=== PATIENT | male | born 1955 | race American Indian/Alaskan Native ===

== ENCOUNTER 2016-03-30 06:14 | Inpatient (IN) | payer MEDICAID ==
[2016-03-30 07:04] LABS: Basophils % (Auto) 0.7 % (0.0-1.8); Eosinophils % (Auto) 4.5 % (0.0-4.3); Hematocrit 44.6 % (35.5-45.6); Hemoglobin 14.4 gm/dl (11.8-15.2); Mean Corpuscular HGB Conc 32 % (32-34); Mean Corpuscular Hemoglobin 29 pg (28-32); Mean Corpuscular Volume 89 fl (84-94); Red Blood Count 5.02 M/mm3 (3.65-5.03); Red Cell Distribution Width 14.1 % (13.2-15.2); White Blood Count 8.8 K/mm3 (4.5-11.0)
--- NOTE | 2016-03-30 07:23 | Emergency Department Report ---
HPI - General Chief Complaint: Dyspnea/Respdistress Time Seen by Provider: 03/30/16 07:09 - HPI HPI: Chief complaint: Chest pain and shortness of breath HPI: Patient is a 60-year-old male with a history of hypertension, coronary artery disease status post stent 2000 and a stent change in 2009 who states for the last several days been having chest pain off and on. He describes it as fluttering followed by tightness with shortness of breath. Patient states it never lasts more than several minutes. Patient states this morning he became much more short of breath and began having chest tightness. Patient was treated with aspirin and albuterol in route by EMS with improvement of his breathing and his chest pain. Patient is similar to when he had a heart attack but not as severe. No recent travel or surgery. No leg pain or swelling Mode of arrival: EMS Source: Patient old chart family member Began: Off and on for several days significantly worse this morning Duration: Intermittent see above Context: See above Quality: See above Severity: 5 out of 10, currently 0 Improved with: Nebulizer and aspirin Worsened with: Nothing Associated signs and symptoms: Productive cough with yellow-white sputum Male yes, age no, hypertension yes, diabetes no, obesity no, elevated cholesterol yes, smoker yes, cocaine use no, family history of coronary artery disease yes, ED Past Medical Hx - Past Medical History Hx Hypertension: Yes Hx Heart Attack/AMI: Yes (2010 stent in 2000 and again in 2009) Hx Congestive Heart Failure: No Hx Diabetes: No Hx Arthritis: Yes Hx Asthma: No Hx COPD: No Additional medical history: "sepsis" 09/2014 - Surgical History Hx Coronary Stent: Yes Additional Surgical History: Peptic Ulcer surgery. 2 Knee surgeries - Social History Smoking Status: Never Smoker Substance Use Type: Alcohol - Medications Home Medications: Home Medications Medication Instructions Recorded Confirmed Last Taken Type Lisinopril [Zestril TAB] 5 mg PO QDAY #30 tablet 10/20/14 03/29/16 Rx ED Review of Systems ROS: Stated complaint: HENRY/CHEST PAIN Other details as noted in HPI ROS Constitutional: No fever ENT: No uri symptoms Cardiovascular: chest pain Respiratory: See HPI GI: No nausea vomiting or diarrhea : No dysuria frequency or urgency, Skin: No rash Neuro: No focal weakness or numbness Psych: No depression Ian/lymph: No edema or leg pain Physical Exam - Physical Exam Vital Signs: Vital Signs 03/30/16 03/30/16 06:33 06:36 Temperature 98 F Pulse Rate 84 Respiratory 22 22 Rate Blood Pressure 142/85 [Left] O2 Sat by Pulse 98 Oximetry Physical Exam: GENERAL: The patient is well-developed well-nourished. HEENT: Normocephalic. Atraumatic. Extraocular motions are intact. Patient has moist mucous membranes. NECK: Supple. No meningitic signs are noted. There is no adenopathy noted. CHEST/LUNGS: Clear to auscultation. Diminished. There is no respiratory distress noted. HEART/CARDIOVASCULAR: Regular. There is no tachycardia. There is no gallop rub or murmur. ABDOMEN: Abdomen is soft, nontender. Patient has normal bowel sounds. There is no abdominal distention. SKIN: There is no rash. There is no edema. There is no diaphoresis. NEURO: The patient is awake, alert, and oriented. The patient is cooperative. The patient has no focal neurologic deficits. The patient has normal speech. MUSCULOSKELETAL: There is no tenderness or deformity. There is no limitation range of motion. There is no evidence of acute injury. ED Course Vital Signs 03/30/16 03/30/16 06:33 06:36 Temperature 98 F Pulse Rate 84 Respiratory 22 22 Rate Blood Pressure 142/85 [Left] O2 Sat by Pulse 98 Oximetry - Reevaluation(s) Reevaluation #1: 03/30/16 08:00 Patient developed acute worsening of his left shoulder pain and repeat EKG was performed. No change in EKG. Exam patient has left trapezius tenderness and increased by palpation radiating down his left arm. No C-spine tenderness. ED Medical Decision Making - Lab Data Result diagrams: 03/30/16 06:53 03/30/16 06:53 Laboratory Tests 03/30/16 06:53 Troponin T < 0.010 - EKG Data -: EKG Interpreted by Me EKG shows normal: sinus rhythm Rate: normal (82) - EKG Data When compared to previous EKG there are: no significant change Interpretation: nonspecific ST-T wave chiara - Radiology Data interpreted by me: Chest x-ray shows no acute process. Critical care attestation.: If time is entered above; I have spent that time in minutes in the direct care of this critically ill patient, excluding procedure time. ED Disposition Clinical Impression: Chest pain Qualifiers: Chest pain type: unspecified Qualified Code(s): R07.9 - Chest pain, unspecified Disposition: OP ADMITTED IP TO THIS HOSP Is pt being admited?: Yes Does the pt Need Aspirin: No (given an ambulance) Condition: Stable Instructions: Chest Pain (ED) Time of Disposition: 08:10 (admit to the hospitalist)
[2016-03-30 07:26] LABS: BUN/Creatinine Ratio 11.25; Blood Urea Nitrogen 9 mg/dL (9-20); Carbon Dioxide 23 mmol/L (22-30); Chloride 105.4 mmol/L (98-107); Glucose 106 mg/dL (75-100); Sodium 143 mmol/L (137-145)
[2016-03-30 07:29] LABS: Platelet Count 165 K/mm3 (140-440)
[2016-03-30 07:36] LABS: Anion Gap 19 mmol/L
[2016-03-30] MEDS ORDERED: NITRO-BID 2% TP ONE ×2 (08:04→08:06)
--- NOTE | 2016-03-30 08:33 | XRay Report ---
CHEST 2 VIEWS: INDICATION: Shortness of breath. COMPARISON: 10/19/2014 FINDINGS: PA and lateral chest radiographs demonstrate new diffuse bilateral interstitial densities, greatest at the right lung base as also minimal fluid or thickening along the fissures, likely congestive. Stable cardiomediastinal silhouette. Lungs slightly hyperinflated/possible COPD. No large pleural effusions or cephalization. EKG leads. Mild thoracic spine degenerative changes. CONCLUSION: Early cardiopulmonary fluid overload/developing interstitial edema, as detailed above. Please correlate. Thank you for the opportunity to participate in this patient's care.
[2016-03-30] MEDS ORDERED: SODIUM CHLORIDE FLUSH SYRINGE 10 ML IV PRN (09:44)
[2016-03-30 10:36] LABS: Creatine Kinase MB 4.5 ng/mL (0.0-4.0)
[2016-03-30] MEDS ORDERED: ZOFRAN IV ONE (10:36)
[2016-03-30] MEDS ORDERED: MORPHINE IV ONE (10:36)
[2016-03-30 10:37] LABS: Creatine Kinase 168 units/L (55-170)
[2016-03-30] MEDS: ZESTRIL PO SCH (10:52)
[2016-03-30] MEDS ORDERED: NACL 0.9% 500 ML 500 ML IV SCH ×2 (11:00→12:00)
[2016-03-30 11:10] LABS: INR 0.99 (0.87-1.13)
[2016-03-30] MEDS ORDERED: NACL 0.9% 500 ML 500 ML ONE (11:13)
[2016-03-30] MEDS ORDERED: NITROGLYCERIN SYRINGE 3 ML ONE (11:54)
--- NOTE | 2016-03-30 11:54 | Consultation ---
Addendum entered and electronically signed by KILO CASTILLO MD 12:42: Patient seen and examined Symptoms are concerning for unstable angina Cath today is showing a borderline long 50-60% in-stent restenosis of the mid LAD, otherwise no obstructive disease Patient will be undergoing a stress test tomorrow morning to further evaluate the physiologic significance of this borderline lesion prior to discharge. Continue asa, plavix, lipitor for the time being Original Note: History of Present Illness Consult date: 03/30/16 Consult reason: chest pain History of present illness: Patient is a 60yr old male with a cardiac history of VA and coronary artery disease. Patient also continues to smoke. He presents to the ED with complaints of chest pain. Patient reports chest pain has been intermittent over the last few days but now associated with shortness of breath on exertion. He also complains of left shoulder pain. He denies nausea vomiting and palpitations. No acute ischemic changes on his presenting ECG. Cardiac consultation requested for further evaluation. Medications and Allergies Allergies Allergy/AdvReac Type Severity Reaction Status Date / Time No Known Allergies Allergy Verified 11/05/14 02:25 Home Medications Medication Instructions Recorded Confirmed Last Taken Type Lisinopril [Zestril TAB] 5 mg PO QDAY #30 tablet 10/20/14 03/30/16 03/29/16 Rx Aspirin [Aspirin BABY CHEW TAB] 81 mg PO QDAY 03/30/16 03/30/16 Unknown History Naproxen Sodium [Aleve TAB] 220 mg PO PRN PRN 03/30/16 03/30/16 Unknown History Active Meds: Active Medications Aspirin (Ecotrin) 325 mg PO QDAY CAR Sodium Chloride (Nacl 0.9% 500 Ml) 500 mls @ 50 mls/hr IV DIRECT CAR Stop: 03/30/16 20:59 Last Admin: 03/30/16 11:30 Dose: 50 mls/hr Sodium Chloride (Nacl 0.9% 500 Ml) 500 mls @ 50 mls/hr IV DIRECT CAR Last Admin: 03/30/16 11:30 Dose: 50 mls/hr Lisinopril (Zestril) 5 mg PO QDAY [facility] Last Admin: 03/30/16 10:52 Dose: Not Given Sodium Chloride (Sodium Chloride Flush Syringe 10 Ml) 10 ml IV PRN PRN PRN Reason: LINE FLUSH Physical Examination Vital Signs Pulse Resp Pulse Ox 85 18 96 03/30/16 06:16 03/30/16 06:16 03/30/16 06:16 General appearance: no acute distress HEENT: Positive: PERRL Neck: Positive: trachea midline Cardiac: Positive: Reg Rate and Rhythm Lungs: Positive: Decreased Breath Sounds Results 03/30/16 06:53 03/30/16 06:53 Cardiac Enzymes 03/30/16 Range/Units 10:03 CK-MB (CK-2) 4.5 H (0.0-4.0) ng/mL Coagulation 03/30/16 Range/Units 10:46 PT 13.0 (12.2-14.9) Sec. INR 0.99 (0.87-1.13) EKG interpretations - Telemetry EKG Rhythm: Sinus Rhythm Assessment and Plan Chest pain Hx of CAD Hypertension Tobacco abuse
[2016-03-30] MEDS: CALAN ONE ×2 (12:06→12:14)
[2016-03-30] MEDS: SUBLIMAZE ONE ×2 (12:08→12:12)
[2016-03-30] MEDS: HEPARIN 10,000 UNITS/10 ML ONE ×2 (12:09→12:14)
[2016-03-30] MEDS: VERSED ONE ×2 (12:09→12:12)
[2016-03-30] MEDS: XYLOCAINE 2% INFILTRATI ONE ×2 (12:09→12:12)
[2016-03-30] MEDS: HEPARIN/NS 5000 UNIT/500ML(CATH LAB) 1,000 ML IR ONE ×2 (12:11→12:14)
--- NOTE | 2016-03-30 13:18 | History and Physical Report ---
History of Present Illness Date of examination: 03/30/16 Date of admission: 03/30/16 08:12 Chief complaint: chest pain History of present illness: Patient is a 60yr old male with past medical history of hypertension, previous NC with stents first in 2000 that changed in 2009. Unfortunately continues to smoke presents to the ER today with complaint of chest pain for 2 days radiating down the left shoulder and up the left side of the neck which initially was associated shortness of breath until this morning when he woke him up from sleep. Rates the 10 over 10 in intensity. With no aggravating or alleviating symptoms. Denies any nausea, vomiting, diarrhea, chills, diaphoresis or palpitation. Initial troponin in the ER was normal. ROS Constitutional: No fever, fatigue or weight loss. Skin: No rash. Eyes: No recent vision problems or eye pain. ENT: No congestion, ear pain, or sore throat. Endocrine: No thyroid problems. Cardiovascular: Chest pain with shortness of breath Respiratory: No cough, congestion, or wheezing. Gastrointestinal: No abdominal pain, nausea, vomiting, or diarrhea. Genitourinary: No dysuria. Musculoskeletal: No joint swelling. Neurologic: No seizures. Hematologic: No unusual bruising or bleeding. Psychiatric: No psychiatric problems, hallucinations or depression. All other systems reviewed and otherwise negative. Past History Past Medical History: CAD, hypertension Past Surgical History: Other (cardiac cath) Social history: lives with family, smoking, full code. denies: alcohol abuse, prescription drug abuse, IV drug use Family history: CAD Medications and Allergies Allergies Allergy/AdvReac Type Severity Reaction Status Date / Time No Known Allergies Allergy Verified 11/05/14 02:25 Home Medications Medication Instructions Recorded Confirmed Last Taken Type Lisinopril [Zestril TAB] 5 mg PO QDAY #30 tablet 10/20/14 03/30/16 03/29/16 Rx Aspirin [Aspirin BABY CHEW TAB] 81 mg PO QDAY 03/30/16 03/30/16 Unknown History Naproxen Sodium [Aleve TAB] 220 mg PO PRN PRN 03/30/16 03/30/16 Unknown History Active Meds: Active Medications Aspirin (Ecotrin) 325 mg PO QDAY CAR Atorvastatin Calcium (Lipitor) 40 mg PO QHS CAR Clopidogrel Bisulfate (Plavix) 75 mg PO QDAY CAR Sodium Chloride (Nacl 0.9% 500 Ml) 500 mls @ 50 mls/hr IV DIRECT CAR Stop: 03/30/16 20:59 Last Admin: 03/30/16 11:30 Dose: 50 mls/hr Sodium Chloride (Nacl 0.9% 500 Ml) 500 mls @ 50 mls/hr IV DIRECT CAR Last Admin: 03/30/16 11:30 Dose: 50 mls/hr Lisinopril (Zestril) 5 mg PO QDAY CAR Last Admin: 03/30/16 10:52 Dose: Not Given Sodium Chloride (Sodium Chloride Flush Syringe 10 Ml) 10 ml IV PRN PRN PRN Reason: LINE FLUSH Exam - Physical Exam Narrative exam: VITAL SIGNS: Reviewed. GENERAL: The patient appeared well nourished and normally developed. Vital signs as documented. HEAD: No signs of head trauma. EYES: Pupils are equal. Extraocular motions intact. EARS: Hearing grossly intact. MOUTH: Oropharynx is normal. NECK: No adenopathy, no JVD. CHEST: Chest with clear breath sounds bilaterally. No wheezes, rales, or rhonchi. CARDIAC: Regular rate and rhythm. S1 and S2, without murmurs, gallops, or rubs. VASCULAR: No Edema. Peripheral pulses normal and equal in all extremities. ABDOMEN: Soft, without detectable tenderness. No sign of distention. No rebound or guarding, and no masses palpated. Bowel Sounds normal. MUSCULOSKELETAL: Good range of motion of all major joints. Extremities without clubbing, cyanosis or edema. NEUROLOGIC EXAM: Alert and oriented x 3. No focal sensory or strength deficits. Speech normal. Follows commands. PSYCHIATRIC: Mood normal. SKIN: No rash or lesions. - Constitutional Vitals: Temp Pulse Resp BP Pulse Ox 97.9 F 91 H 17 139/95 92 03/30/16 12:47 03/30/16 13:00 03/30/16 13:00 03/30/16 13:00 03/30/16 13:00 Results - Labs CBC & Chem 7: 03/30/16 06:53 03/30/16 06:53 Labs: Laboratory Last Values WBC 8.8 K/mm3 (4.5-11.0) 03/30/16 06:53 RBC 5.02 M/mm3 (3.65-5.03) 03/30/16 06:53 Hgb 14.4 gm/dl (11.8-15.2) 03/30/16 06:53 Hct 44.6 % (35.5-45.6) 03/30/16 06:53 MCV 89 fl (84-94) 03/30/16 06:53 MCH 29 pg (28-32) 03/30/16 06:53 MCHC 32 % (32-34) 03/30/16 06:53 RDW 14.1 % (13.2-15.2) 03/30/16 06:53 Plt Count 165 K/mm3 (140-440) 03/30/16 06:53 Lymph % (Auto) 42.7 % (13.4-35.0) H 03/30/16 06:53 [place] % (Auto) 8.7 % (0.0-7.3) H 03/30/16 06:53 Eos % (Auto) 4.5 % (0.0-4.3) H 03/30/16 06:53 Baso % (Auto) 0.7 % (0.0-1.8) 03/30/16 06:53 Lymph # 3.7 K/mm3 (1.2-5.4) 03/30/16 06:53 [place] # 0.8 K/mm3 (0.0-0.8) 03/30/16 06:53 Eos # 0.4 K/mm3 (0.0-0.4) 03/30/16 06:53 Baso # 0.1 K/mm3 (0.0-0.1) 03/30/16 06:53 Seg Neutrophils % 43.4 % (40.0-70.0) 03/30/16 06:53 Seg Neutrophils # 3.8 K/mm3 (1.8-7.7) 03/30/16 06:53 PT 13.0 Sec. (12.2-14.9) 03/30/16 10:46 INR 0.99 (0.87-1.13) 03/30/16 10:46 Sodium 143 mmol/L (137-145) 03/30/16 06:53 Potassium 4.0 mmol/L (3.6-5.0) 03/30/16 06:53 Chloride 105.4 mmol/L (98-107) 03/30/16 06:53 Carbon Dioxide 23 mmol/L (22-30) 03/30/16 06:53 Anion Gap 19 mmol/L 03/30/16 06:53 BUN 9 mg/dL (9-20) 03/30/16 06:53 Creatinine 0.8 mg/dL (0.8-1.5) 03/30/16 06:53 Estimated GFR > 60 ml/min 03/30/16 06:53 BUN/Creatinine Ratio 11.25 % 03/30/16 06:53 Glucose 106 mg/dL (75-100) H 03/30/16 06:53 Calcium 9.0 mg/dL (8.4-10.2) 03/30/16 06:53 Total Creatine Kinase 168 units/L (55-170) 03/30/16 10:03 CK-MB (CK-2) 4.5 ng/mL (0.0-4.0) H 03/30/16 10:03 CK-MB (CK-2) Rel Index 2.6 (0-4) 03/30/16 10:03 Troponin T < 0.010 ng/mL (0.00-0.029) 03/30/16 10:03 - Imaging and Cardiology EKG: image reviewed (normal sinus rhythm) Chest x-ray: image reviewed (personally reviewed no acute pathology) Assessment and Plan Assessment and plan: Patient is a 60yr old male with past medical history of hypertension, previous NC with stents first in 2000 that changed in 2009. Unfortunately continues to smoke presents to the ER today with complaint of chest pain for 2 days radiating down the left shoulder and up the left side of the neck which initially was associated shortness of breath until this morning when he woke him up from sleep. Rates the 10 over 10 in intensity. With no aggravating or alleviating symptoms. Denies any nausea, vomiting, diarrhea, chills, diaphoresis or palpitation. Initial troponin in the ER was normal. * Unstable angina * CAD * Tobacco abuse Plan * Admit patient to telemetry, have discussed with Dr. Edwards about patient's clinical condition and he will reevaluate the patient and see if cardiac catheterization is warranted at this point considering unstable angina. * Check troponins * Start patient on oxygen, pain control with morphine, aspirin, will hold on Plavix in case cardiac catheterization is needed. If not will start. * DVT and GI prophylaxis * Status of counseling provided to the patient the need to quit tobacco use patient verbalized understanding resources provided to the patient Advance Directives: Yes Plan of care discussed with patient/family: Yes
[2016-03-30] MEDS: PLAVIX PO SCH (13:34)
--- NOTE | 2016-03-30 13:42 | Cardiac Catherization Report ---
LEFT HEART CATHETERIZATION INDICATION FOR PROCEDURE: Unstable angina. PROCEDURES PERFORMED: Selective left and right coronary angiography and left ventriculography. DESCRIPTION OF PROCEDURE: After obtaining written consent, the patient was draped using sterile technique. A 2% lidocaine was injected into the right wrist. A 5-Austrian vascular sheath was inserted into the right radial artery. A 5-Austrian JL3.5 catheter was used to selectively engage the left coronary artery. A 5-Austrian JR4 catheter was used to selectively engage the right coronary artery. A 5-Austrian JR4 catheter was used to hand inject the left ventriculogram. No complications occurred during the procedure. Estimated blood loss was minimal. Specimen removed was none. Hemostasis was achieved at the end of the procedure using manual pressure. FINDINGS: HEMODYNAMICS: Aortic pressure is 132/95 with an LV systolic pressure of 139 mmHg and the left ventricular end-diastolic pressure of 36 mmHg. CARDIAC STRUCTURES: The left ventricle was poorly visualized. CORONARY ANATOMY: 1. This is a right dominant circulation. 2. The left main is angiographically normal. 3. The left anterior descending artery has evidence of a mid segment stent. There is a 50-60% tubular instent restenosis noted within the stent. There is a large first diagonal artery that is originating from the LAD and appears to have no evidence of obstructive disease. The left circumflex artery has mild diffuse nonobstructive luminal irregularities with less than 25% luminal stenosis. 4. The right coronary artery is a dominant vessel. No evidence of obstructive disease is noted within the right coronary artery. Impression: 1. There is evidence of borderline restenosis of the mid LAD segment. The luminal compromise is approximately 50-60%. Otherwise, there is no evidence of obstructive disease within the remaining coronary segments. 2. Evidence of elevated LVEDP measured at 36 mmHg. RECOMMENDATIONS: The patient will be recommended for further evaluation of the significance of the mid LAD lesion with a stress perfusion scan in the morning. If any evidence of ischemia, then the patient will be recommended for percutaneous coronary intervention. The patient will be admitted to telemetry for further monitoring. JOB# [id number] KARI/NATALIIA SERRATO
--- NOTE | 2016-03-30 14:17 | Admit Criteria Form ---
Admission Criteria Documentation: ANGINA Clinical Indications for Admission to Inpatient Care (Place 'X' for any and all applicable criteria): Admission is indicated for suspected angina (e.g, chest pain pattern, angina- equivalent symptom, or other finding suggesting unstable angina) with ANY ONE of the following(1)(2)(3)(4)(5): [ X]I. Angina needing acute intervention as indicated by ALL of the following (11)(12): [ X]a) Unstable angina is present as indicated by angina that is ANY ONE of the following: [ ]i) New onset [ ]ii) Nocturnal [ ]iii) Prolonged at rest [X ]iv) Progressive [ X]b) Angina warrants acute intervention as indicated by ANY ONE of the following: [ X]i) Recurrent angina (e.g, not responding as previously to treatment) [ ]ii) Angina at rest or with low-level activities despite initial medical therapy [ ]iii) New or presumably new ST-segment depression on ECG [ ]iv) Signs or symptoms of heart failure (eg, dyspnea, pulmonary edema) [ ]v) New or worsening mitral regurgitation [ ]vi) Hemodynamic instability [ ]vii) Dangerous arrhythmia (eg, sustained ventricular tachycardia) [ ]viii) History of percutaneous coronary intervention within 6 months [ ]ix) History of coronary artery bypass graft surgery [ ]x) VINNY risk score of 2 or greater[A] [ ]xi) History of Diabetes(14) [ ]xii) High-risk cardiac ischemia findings on noninvasive testing (e.g, echocardiogram, treadmill testing, nuclear scan) [ ]xiii) Chronic renal insufficiency (ie, estimated GFR less than 60 mL/min/1.732m) [ ]xiv) Left ventricular ejection fraction less than 40% [ ]II. Evidence of RI (e.g, cardiac biomarkers positive, ST-segment elevation on ECG). Also use Myocardial Infarction. Extended stay beyond goal length of stay may be needed for (1)(26): [ ]a) Intravascular procedural complications such as acute vessel closure, stent malposition, or vessel dissection(27) [ ]b) Extravascular procedural complications such as retroperitoneal hematoma, pericardial effusion, or cardiac tamponade [ ]c) Entry site complications causing bleeding, hematoma, or distal ischemia and requiring ongoing monitoring, surgical repair, or surgical thrombectomy(28) [ ]d) Heart failure [ ]e) Dangerous arrhythmia [ ]f) Hemodynamic instability with persisting symptoms after intensive medical management, or recurring severe prolonged symptoms [ ]g) Postprocedural myocardial infarction or acute renal failure The original [facility] [employer] content created by [facility] has been revised. The portions of the content which have been revised are identified through the use of italic text or in bold, and [facility] has neither reviewed nor approved the modified material. All other unmodified content is copyright [facility]. Please see references footnoted in the original [facility] edition 2016 Admission Criteria Met: Yes
--- NOTE | 2016-03-30 16:10 | Echocardiography Report ---
Transthoracic Echocardiogram Indication: Chest pain BP: 136/92 Conclusions *The study quality is technically difficult. *Global left ventricular systolic function is at the lower limits of normal. *The estimated ejection fraction is 45-50%. *The mid anteroseptal, apical septal, apical anterior, and apical inferior wall segments are hypokinetic. *The left atrium is moderately dilated. *There is mild to moderate mitral regurgitation. Findings Procedure Info: The study quality is technically difficult. Left Ventricle: The left ventricular chamber size is normal. Global left ventricular systolic function is at the lower limits of normal. The estimated ejection fraction is 45-50%. The mid anteroseptal, apical septal, apical anterior, and apical inferior wall segments are hypokinetic. Left Atrium: The left atrium is moderately dilated. Right Ventricle: The right ventricle is not well visualized. Right Atrium: The right atrium is not well visualized. Aortic Valve: The aortic valve is not well visualized. There is no evidence of aortic regurgitation. Mitral Valve: The mitral valve leaflets appear normal. There is mild to moderate mitral regurgitation. There is no evidence of mitral stenosis. Tricuspid Valve: The tricuspid valve leaflets are normal. There is no evidence of tricuspid valve regurgitation. There is no tricuspid stenosis. Pulmonic Valve: The pulmonic valve is not well visualized. Pericardium: There is no pericardial effusion. Aorta: There is no dilatation of the ascending aorta. There is no dilatation of the aortic arch. There is no dilatation of the descending thoracic aorta. There is no dilatation of the aortic root. Venous: The inferior vena cava appears normal in size. Measurements Chambers MM Name Value Normal Range Ao root diameter (MM) 3.6 cm (2 - 3.7) LA dimension (AP) MM 4.4 cm (1.9 - 4) LA:Ao ratio (MM) 1.22 ratio - AV cusp separation (MM) 2.4 cm (1.5 - 2.6) Chambers 2D Name Value Normal Range IVSd (2D) 1.62 cm (0.6 - 1.1) LVPWd (2D) 1.6 cm (0.6 - 1.1) IVS:LVPW ratio (2D) 1.01 ratio - LVIDd (2D) 5.39 cm (3.7 - 5.6) LVIDs (2D) 4.01 cm (2 - 3.8) LV FS (Teichholz) (2D) 25.6 % - LV FS (cube) (2D) 25.6 % - EF Teichholz (2D) 50.1 % - LA dimension (AP) 2D 4.5 cm (1.9 - 4) Volumes/Mass Name Value Normal Range LA ESV SP 4CH (MOD) 54 ml - LA ESV SP 2CH (MOD) 74 ml - LA ESV BP (MOD) 67 ml - LA ESV BP (MOD) index 27.6 ml/m2 - Diastolic/Systolic Function Name Value Normal Range MV E-wave Vmax 0.89 m/sec - MV deceleration time 190 msec - MV A-wave Vmax 0.71 m/sec - MV E:A ratio 1.2 ratio - LV septal e' Vmax 0.09 m/sec - LV lateral e' Vmax 0.1 m/sec - LV E:e' septal ratio 10.3 ratio - LV E:e' lateral ratio 8.5 ratio - Aortic Valve Name Value Normal Range AV VTI 15.1 cm - AV mean gradient 2 mmHg - LVOT diameter 2 cm - LVOT VTI 15 cm - LVOT mean gradient 2 mmHg - SV LVOT 47 ml - MALOU (continuity VTI) 3.12 cm2 - Mitral Valve Name Value Normal Range MV PHT 58 msec - MR Vmax 5.1 m/sec - MR VTI 161 cm - MVA (PHT) 3.79 cm2 - Wallmotion BAS Not Seen BA Not Seen BAL Not Seen JEFFERY Not Seen BI Not Seen BIS Not Seen MAS Hypokinetic MA Not Seen MAL Not Seen MIL Not Seen HI Not Seen MIS Not Seen Hypokinetic AA Hypokinetic AL Not Seen AI Hypokinetic APEX Hypokinetic
[2016-03-30 20:27] LABS: Creatine Kinase 125 units/L (55-170); Creatine Kinase MB 3.2 ng/mL (0.0-4.0)
[2016-03-31] MEDS ORDERED: LEXISCAN IV ONE (07:30)
[2016-03-31] MEDS ORDERED: MILK OF MAGNESIA PO PRN (08:56)
[2016-03-31 09:18] VITALS: BP 135/94
[2016-03-31] MEDS ORDERED: ECOTRIN PO SCH (10:00)
[2016-03-31] MEDS: ZESTRIL PO SCH (10:33)
[2016-03-31] MEDS: PLAVIX PO SCH (10:33)
--- NOTE | 2016-03-31 10:46 | Progress Note ---
Assessment and Plan Chest Pain Negative cardiac enzymes No ischemic ECG changes No ischemia by MPI - large fixed apical, anterior, anteroseptal, inferoseptal wall defect consistent with his previous history of AR (chronic finding) Cath this admission - borderline 50-60% ISR of the mid LAD (no ischemia in the LAD distribution) Echo showing LVEF 40-45% with RWMA in the LAD distribution CAD s/p AR and PCI to mid LAD Systemic Hypertension Hyperlipidemia Recommendations: Patient may go home on the following meds (Discussed with patient) asa 81 mg po daily plavix 75 mg po daily lipitor 40 mg po qhs amlodipine 5 mg po daily toprol XL 25 mg po daily ntg 0.4 mg SL prn for chest pain Follow-up [facility] in 2 weeks Subjective Date of service: 03/31/16 Principal diagnosis: Chest Pain Interval history: Patient denies chest pain or shortness of breath this morning Objective Vital Signs Temp Pulse Pulse Pulse Pulse Pulse Resp 03/31/16 10:33 86 03/31/16 08:54 86 03/31/16 08:53 87 03/31/16 08:52 90 03/31/16 08:51 99 H 03/31/16 08:50 93 H 03/31/16 08:32 78 03/31/16 06:06 98.3 F 77 20 03/31/16 01:24 83 03/31/16 00:56 98.3 F 81 20 03/30/16 21:34 97.7 F 81 18 03/30/16 20:00 76 18 03/30/16 19:00 83 20 03/30/16 18:00 85 17 03/30/16 17:54 76 77 77 03/30/16 17:00 76 16 03/30/16 16:00 82 14 03/30/16 15:30 80 17 03/30/16 15:00 82 16 03/30/16 14:30 78 14 03/30/16 14:00 85 17 03/30/16 13:30 74 14 03/30/16 13:15 77 18 03/30/16 13:00 91 H 17 03/30/16 12:47 97.9 F 94 H 18 03/30/16 11:25 03/30/16 11:20 97.0 F L 78 20 Resp BP BP BP BP BP Pulse Ox 03/31/16 10:33 135/94 03/31/16 08:54 135/94 03/31/16 08:53 141/90 03/31/16 08:52 155/76 03/31/16 08:51 156/94 03/31/16 08:50 151/94 03/31/16 08:32 125/91 03/31/16 06:06 121/81 95 03/31/16 01:24 03/31/16 00:56 107/69 94 03/30/16 21:34 118/74 93 03/30/16 20:00 123/83 96 03/30/16 19:00 135/75 96 03/30/16 18:00 135/88 97 03/30/16 17:54 118/76 112/81 120/82 03/30/16 17:00 119/74 96 03/30/16 16:00 124/83 97 03/30/16 15:30 112/81 96 03/30/16 15:00 118/76 96 03/30/16 14:30 126/92 95 03/30/16 14:00 134/88 91 03/30/16 13:30 129/91 91 03/30/16 13:15 132/98 92 03/30/16 13:00 139/95 92 03/30/16 12:47 131/93 93 03/30/16 11:25 18 03/30/16 11:20 132/90 97 - Physical Examination HEENT: Positive: PERRL Neck: Positive: trachea midline Cardiac: Positive: Reg Rate and Rhythm Lungs: Positive: Normal Exam - Labs and Meds Cardiac Enzymes 03/30/16 Range/Units 19:50 CK-MB (CK-2) 3.2 (0.0-4.0) ng/mL Coagulation 03/30/16 Range/Units 10:46 PT 13.0 (12.2-14.9) Sec. INR 0.99 (0.87-1.13) - Imaging and Cardiology EKG: image reviewed (normal sinus rhythm)
--- NOTE | 2016-03-31 12:20 | Discharge Summary ---
Providers - Providers Date of Admission: 03/30/16 08:12 Date of discharge: 03/31/16 Attending physician: WES SNLEL 03/30/16 Consult to Cardiac Rehabilitation [CONS] Routine Reason For Exam: Phase I 03/30/16 08:14 Consult to Physician [CONS] Urgent Consulting Provider: LYNN LAU Reason For Exam: chest pain Notified:: yes 03/30/16 12:43 Consult to Cardiac Rehabilitation [CONS] Routine Reason For Exam: Cardiac Rehab Evaluation Primary care physician: SUPERVISOR AD[employer]ICE Hospitalization Condition: Stable Hospital course: per Cardiology: "Chest Pain=>CAD Negative cardiac enzymes No ischemic ECG changes No ischemia by MPI - large fixed apical, anterior, anteroseptal, inferoseptal wall defect consistent with his previous history of IL (chronic finding) Cath this admission - borderline 50-60% ISR of the mid LAD (no ischemia in the LAD distribution) Echo showing LVEF 40-45% with RWMA in the LAD distribution CAD s/p IL and PCI to mid LAD Systemic Hypertension Hyperlipidemia Recommendations: Patient may go home on the following meds (Discussed with patient) asa 81 mg po daily plavix 75 mg po daily lipitor 40 mg po qhs amlodipine 5 mg po daily toprol XL 25 mg po daily ntg 0.4 mg SL prn for chest pain Follow-up [facility] in 2 weeks" time of discharge 32 minutes Disposition: DISCHARGED TO HOME OR SELFCARE Core Measure Documentation - Palliative Care Palliative Care/ Comfort Measures: Not Applicable - Core Measures Any of the following diagnoses?: none - VTE Discharge Requirements Deep Vein Thrombosis/Pulmonary Embolism Present on Admission: No Has pt received <5 days of overlap therapy or INR<2.0: No Anticoagulant overlap therapy prescribed at discharge: No Contraindication No Overlap Therapy order at DC: Not Indicated Exam - Physical Exam Narrative exam: GEN: WDWN, NAD, AWAKE, ALERT, ORIENTATED 3 HEENT: NCAT, PERRL, EOMI, OP CLEAR NECK: SUPPLE, NO THYROMEGALY, NO JVD, NO LAD CVS: RRR, NORMAL S1S2 LUNGS/CHEST: CTA B, NORMAL CHEST EXPANSION B, GOOD AIR ENTRY B ABD: SOFT NTND, GBS, NO REBOUND OR GUARDING EXT/SKIN: NO SIGNIFICANT EDEMA OR RASH MSK: FROM X 4 EXTREMITIES NEURO: CN 2-12 GROSSLY INTACT, NO FOCAL DEFICITS PSY: CALM - Constitutional Vitals: Temp Pulse Resp BP Pulse Ox 98.3 F 86 20 135/94 95 03/31/16 06:06 03/31/16 10:33 03/31/16 06:06 03/31/16 10:33 03/31/16 06:06 Plan Activity: advance as tolerated (no strenous activites until cleared by PCP and cardiology) Diet: low salt Follow up with: PRIMARY MD GAYE [Primary Care Provider] - 3-5 Days LYNN LAU MD [Staff Physician] - 14 Days Prescriptions: AtorvaSTATin [Lipitor] 40 mg PO QHS #25 tablet Aspirin [Aspirin BABY CHEW TAB] 81 mg PO QDAY #30 tab Metoprolol Xl [Metoprolol SUCCINATE ER TAB] 25 mg PO QDAY #30 tablet Nitroglycerin [Nitrostat] 0.4 mg SL Q5M PRN #30 tab PRN Reason: Chest Pain amLODIPine [Norvasc] 5 mg PO DAILY #30 tab Clopidogrel [Plavix] 75 mg PO QDAY #30 tablet Lisinopril [Zestril TAB] 5 mg PO QDAY #30 tablet
--- NOTE | 2016-04-01 07:04 | Treadmill Report ---
FINDINGS: There is evidence of a large fixed defect involving the apex, the apical and mid inferior wall, the septal wall as well as the apical and mid anteroseptal wall consistent with a previous myocardial infarction in the LAD distribution. There is no scintigraphic evidence of myocardial ischemia. Gated imaging is also consistent with a previous myocardial infarction in the LAD distribution with akinesis of the apex and hypokinesis of the septal wall. The left ventricular ejection fraction is measured at 45%. CONCLUSION: 1. No scintigraphic evidence of myocardial ischemia. 2. Large fixed defect in the LAD distribution comprising 26% of the left ventricular myocardium associated with akinesis consistent with a previous myocardial infarction in the LAD distribution. 3. Left ventricular ejection fraction is measured at 45%. [facility]# [id number] KARI/NATALIIA
== END 2016-03-31 13:21 | disposition home or self-care (01) | DRG 287 ==
LOC: ED 06:14 → 4A 08:12
PROVIDERS: ADMIT Internal Medicine; ATTEND Internal Medicine
PROC: 4A023N7 Measurement of Cardiac Sampling and Pressure, Left Heart, Percutaneous Approach (ICD-10-PCS; principal; 2016-03-30)
PROC: B2111ZZ Fluoroscopy of Multiple Coronary Arteries using Low Osmolar Contrast (ICD-10-PCS; 2016-03-30)
PROC: B2151ZZ Fluoroscopy of Left Heart using Low Osmolar Contrast (ICD-10-PCS; 2016-03-30)
DX: T82.855A Stenosis of coronary artery stent, initial encounter (principal); I10 Essential (primary) hypertension; M19.90 Unspecified osteoarthritis, unspecified site; I25.110 Atherosclerotic heart disease of native coronary artery with unstable angina pectoris; E78.5 Hyperlipidemia, unspecified; Y84.0 Cardiac catheterization as the cause of abnormal reaction of the patient, or of later complication, without mention of misadventure at the time of the procedure; Z95.5 Presence of coronary angioplasty implant and graft; I25.2 Old myocardial infarction; Z98.890 Other specified postprocedural states; Z79.899 Other long term (current) drug therapy; Z79.82 Long term (current) use of aspirin; Z82.49 Family history of ischemic heart disease and other diseases of the circulatory system; Y92.89 Other specified places as the place of occurrence of the external cause; Z72.0 Tobacco use
CPT/HCPCS: 36415; 71020; 78452; 80048; 82550; 82553; 82962; 84484; 85025; 85610; 93005; 93010; 93017; 93306; 93458; 96374; 96375; A9270-GY; A9502; C1894; J1644; J2250; J2270; J2405; J2785; J3010; J7040; Q9967

== ENCOUNTER 2016-04-06 21:19 | Emergency (ER) | payer MEDICAID ==
[2016-04-06 21:41] VITALS: BP 146/95
--- NOTE | 2016-04-07 14:10 | ED Elopement Review ---
ED Pt Elopement review - Call Back decision Pt Call Back Decision: No action required
== END 2016-04-06 21:59 | disposition left against medical advice (07) ==
LOC: ED 21:19
DX: R07.89 Other chest pain (principal); R10.32 Left lower quadrant pain; Z53.21 Procedure and treatment not carried out due to patient leaving prior to being seen by health care provider
CPT/HCPCS: 93005; 93010

== ENCOUNTER 2016-05-16 11:36 | Emergency (ER) | payer MEDICAID ==
[2016-05-16 12:03] VITALS: BP 144/97
[2016-05-16 12:40] LABS: Eosinophils % (Auto) 4.4 % (0.0-4.3)
[2016-05-16 12:48] LABS: Anion Gap 17 mmol/L; Blood Urea Nitrogen 8 mg/dL (9-20); Calcium 8.9 mg/dL (8.4-10.2); Carbon Dioxide 24 mmol/L (22-30); Chloride 105.7 mmol/L (98-107); Glucose 95 mg/dL (75-100); INR 0.97 (0.87-1.13); Sodium 143 mmol/L (137-145)
[2016-05-16 12:49] LABS: Partial Thromboplastin Time 30.1 Sec. (24.2-36.6)
[2016-05-16 12:58] LABS: Basophils % (Auto) 0.7 % (0.0-1.8); Hematocrit 43.6 % (35.5-45.6); Hemoglobin 14.1 gm/dl (11.8-15.2); Mean Corpuscular HGB Conc 32 % (32-34); Mean Corpuscular Hemoglobin 28 pg (28-32); Mean Corpuscular Volume 86 fl (84-94); Red Blood Count 5.09 M/mm3 (3.65-5.03); Red Cell Distribution Width 15.1 % (13.2-15.2); White Blood Count 8.5 K/mm3 (4.5-11.0)
[2016-05-16 13:30] LABS: Platelet Count 177 K/mm3 (140-440)
--- NOTE | 2016-05-16 14:16 | XRay Report ---
CHEST 2 VIEWS INDICATION: Shortness of breath. COMPARISON: 03/30/2016 FINDINGS: Frontal and lateral chest radiographs, 3 images, demonstrate overall less prominent lung markings/interstitial edema, though remain slightly more asymmetrically prominent on the right. Minimal fluid or thickening along the major fissures again noted, though has resolved along the right minor fissure. Normal cardiomediastinal silhouette. Stable bones. CONCLUSION: Resolving interstitial edema, as described. Please correlate. Thank you for the opportunity to participate in this patient's care.
--- NOTE | 2016-05-16 15:38 | Emergency Department Report ---
HPI - General Chief Complaint: Dyspnea/Respdistress Time Seen by Provider: 05/16/16 15:26 - HPI HPI: Room 3 The patient is a 60-year-old male presenting with a chief complaint of shortness of breath and cough. The patient states for 1 week is at a cough productive of yellowish green sputum. Patient states he developed shortness of breath yesterday and this morning at 11:00 he developed one hour of intermittent sharp chest pain. The patient states the pain is mostly whenever he coughs. Patient currently denies chest pain. Patient denies any history of fever Location: [see above] Duration: [see above] Quality: Sharp Severity: 0/10 Modifying factors: [see above] Context: [see above] Mode of transportation: [not driving] ED Past Medical Hx - Past Medical History Previous Medical History?: Yes Hx Hypertension: Yes Hx Heart Attack/AMI: Yes Hx Arthritis: Yes Additional medical history: "sepsis" 09/2014 - Surgical History Hx Coronary Stent: Yes (1 stent) Additional Surgical History: Peptic Ulcer surgery. 2 Knee surgeries - Family History Family history: no significant - Social History Smoking Status: Current Every Day Smoker (1/3 pack per day) Substance Use Type: Alcohol - Medications Home Medications: Home Medications Medication Instructions Recorded Confirmed Last Taken Type Aspirin [Aspirin BABY CHEW TAB] 81 mg PO QDAY #30 tab 03/31/16 Unknown Rx AtorvaSTATin [Lipitor] 40 mg PO QHS #25 tablet 03/31/16 Unknown Rx Clopidogrel [Plavix] 75 mg PO QDAY #30 tablet 03/31/16 Unknown Rx Lisinopril [Zestril TAB] 5 mg PO QDAY #30 tablet 03/31/16 Unknown Rx Metoprolol Xl [Metoprolol 25 mg PO QDAY #30 tablet 03/31/16 Unknown Rx SUCCINATE ER TAB] Nitroglycerin [Nitrostat] 0.4 mg SL Q5M PRN #30 tab 03/31/16 Unknown Rx amLODIPine [Norvasc] 5 mg PO DAILY #30 tab 03/31/16 Unknown Rx Azithromycin [Zithromax Z-FABIOLA] 0 mg PO DAILY #6 tab 05/16/16 Unknown Rx Benzonatate [Tessalon Perles] 100 mg PO Q8HR #30 capsule 05/16/16 Unknown Rx ED Review of Systems ROS: Stated complaint: SOB Other details as noted in HPI Comment: All other systems reviewed and negative Constitutional: denies: chills, fever Eyes: denies: eye pain, eye discharge, vision change ENT: denies: ear pain, throat pain Respiratory: cough, shortness of breath Cardiovascular: chest pain Endocrine: no symptoms reported Gastrointestinal: denies: abdominal pain, nausea, diarrhea Genitourinary: denies: urgency, dysuria Musculoskeletal: denies: back pain, joint swelling, arthralgia Skin: denies: rash, lesions Neurological: denies: headache, weakness, paresthesias Psychiatric: denies: anxiety, depression Hematological/Lymphatic: denies: easy bleeding, easy bruising Physical Exam - Physical Exam Vital Signs: Vital Signs 05/16/16 05/16/16 11:50 15:05 Temperature 97.5 F L Pulse Rate 87 Respiratory 20 18 Rate Blood Pressure 144/97 O2 Sat by Pulse 98 98 Oximetry Physical Exam: GENERAL: The patient is well-developed well-nourished male lying on stretcher not appearing to be in acute distress. [] HEENT: Normocephalic. Atraumatic. Extraocular motions are intact. Patient has moist mucous membranes. NECK: Supple. No meningitic signs are noted. There is no adenopathy noted. CHEST/LUNGS: Clear to auscultation. There is no respiratory distress noted. HEART/CARDIOVASCULAR: Regular. There is no tachycardia. There is no gallop rub or murmur. ABDOMEN: Abdomen is soft, nontender. Patient has normal bowel sounds. There is no abdominal distention. SKIN: There is no rash. There is no edema. There is no diaphoresis. NEURO: The patient is awake, alert, and oriented. The patient is cooperative. The patient has normal speech MUSCULOSKELETAL: There is no evidence of acute injury. ED Course Vital Signs 05/16/16 05/16/16 11:50 15:05 Temperature 97.5 F L Pulse Rate 87 Respiratory 20 18 Rate Blood Pressure 144/97 O2 Sat by Pulse 98 98 Oximetry - Consultations Consultation #1: 05/16/16 15:38 Cardiology paged 05/16/16 16:26 Case discussed with Jorge. States patient had cardiac catheterization performed last month but never followed up. Do not see need for admission to the hospital today. Will stop by and give patient appointment card for follow- up ED Medical Decision Making - Lab Data Result diagrams: 05/16/16 12:21 05/16/16 12:21 Laboratory Tests 05/16/16 05/16/16 05/16/16 12:21 12:21 12:21 WBC 8.5 RBC 5.09 H Hgb 14.1 Hct 43.6 MCV 86 MCH 28 MCHC 32 RDW 15.1 Plt Count 177 Lymph % (Auto) 37.9 H Faulkner % (Auto) 8.1 H Eos % (Auto) 4.4 H Baso % (Auto) 0.7 Lymph # 3.2 Faulkner # 0.7 Eos # 0.4 Baso # 0.0 Seg Neutrophils % 51.9 Seg Neutrophils # 4.6 PT 12.8 INR 0.97 APTT 30.1 D-Dimer 195.40 Sodium 143 Potassium 4.0 Chloride 105.7 Carbon Dioxide 24 Anion Gap 17 BUN 8 L Creatinine 0.8 Estimated GFR > 60 BUN/Creatinine Ratio 10.00 Glucose 95 Calcium 8.9 Troponin T < 0.010 - EKG Data -: EKG Interpreted by Me EKG shows normal: sinus rhythm Rate: normal - EKG Data When compared to previous EKG there are: no significant change Interpretation: other (no ischemic changes seen) - Radiology Data Radiology results: image reviewed (chest x-ray) interpreted by me: Chest x-ray-no focal infiltrates, no pneumothorax - Differential Diagnosis pneumonia, bronchitis, CHF, ACS Critical care attestation.: If time is entered above; I have spent that time in minutes in the direct care of this critically ill patient, excluding procedure time. ED Disposition Clinical Impression: Acute bronchitis Disposition: DISCHARGED TO HOME OR SELFCARE Is pt being admited?: No Does the pt Need Aspirin: No Condition: Stable Instructions: Acute Bronchitis (ED) Additional Instructions: Return to the emergency department immediately should you develop worsening symptoms, fever, inability to tolerate food or liquid or any other concerns. Prescriptions: Azithromycin [Zithromax Z-FABIOLA] 0 mg PO DAILY #6 tab Benzonatate [Tessalon Perles] 100 mg PO Q8HR #30 capsule Referrals: PRIMARY CARE, [Primary Care Provider] - 3-5 Days Time of Disposition: 16:28
== END 2016-05-16 16:53 | disposition home or self-care (01) ==
LOC: ED 11:36
DX: J20.9 Acute bronchitis, unspecified (principal); F17.200 Nicotine dependence, unspecified, uncomplicated; I10 Essential (primary) hypertension; I25.2 Old myocardial infarction; Z98.890 Other specified postprocedural states
CPT/HCPCS: 36415; 71020; 80048; 84484; 85025; 85379; 85610; 85730; 93005; 93010; 99284

== ENCOUNTER 2018-06-29 03:15 | Emergency (ER) | payer MEDICAID ==
[2018-06-29 03:25] VITALS: BP 125/97
--- NOTE | 2018-06-29 04:37 | XRay Report ---
PROCEDURE: XR KNEE 3V RT TECHNIQUE: 3 views right knee HISTORY: pain and swelling R knee s/p GLF COMPARISONS: None FINDINGS: Moderate right knee osteoarthrosis with mild periarticular soft tissue swelling. A suprapatellar join t effusion is present. Probable intra-articular osteochondral body measuring up to 16 mm in greatest dimension is present at the posterior aspect of the knee on lateral view. No acute fracture identifie d. IMPRESSION: Moderate right knee osteoarthrosis with joint effusion and probable intra-articular body. No acute fr acture identified. This document is electronically signed by Joe Pretty MD., June 29 2018 04:35:37 AM ET
[2018-06-29] MEDS ORDERED: IBUPROFEN PO ONE (07:43)
--- NOTE | 2018-06-29 07:59 | Emergency Department Report ---
ED Lower Extremity HPI - General Chief Complaint: Fall Stated Complaint: R KNEE PAIN Time Seen by Provider: 06/29/18 07:03 Source: patient Mode of arrival: Wheelchair Limitations: No Limitations - History of Present Illness Initial Comments: This is a 62-year-old male nontoxic, well nourished in appearance, no acute signs of distress presents to the ED with c/o of right knee pain 1 day. Patient stated that he had a mechanical fall after tripping and landed on his right knee. Patient denies any other trauma. Patient denies any numbness, tingling, fever, chills, nausea, vomiting, chest pain, shortness of breath, headache, stiff neck. Patient denies any joint swelling or joint redness. Patient denies decreased range of motion. Patient stated has decreased gait due to pain. Patient denies any allergies. MD Complaint: knee injury -: Last night Injury: Knee: Right Severity: mild Severity scale (0 -10): 8 Improves With: immobilization Worsens With: weight bearing, movement, palpation Context: fall Associated Symptoms: swelling, unable to bear weight. denies: snap/pop sensation, numbness, tingling, able to partially bear weight, ambulatory - Related Data Previous Rx's Medication Instructions Recorded Last Taken Type Aspirin [Aspirin BABY CHEW TAB] 81 mg PO QDAY #30 tab 03/31/16 Unknown Rx AtorvaSTATin [Lipitor] 40 mg PO QHS #25 tablet 03/31/16 Unknown Rx Clopidogrel [Plavix] 75 mg PO QDAY #30 tablet 03/31/16 Unknown Rx Lisinopril [Zestril TAB] 5 mg PO QDAY #30 tablet 03/31/16 Unknown Rx Metoprolol Xl [Metoprolol 25 mg PO QDAY #30 tablet 03/31/16 Unknown Rx SUCCINATE ER TAB] Nitroglycerin [Nitrostat] 0.4 mg SL Q5M PRN #30 tab 03/31/16 Unknown Rx amLODIPine [Norvasc] 5 mg PO DAILY #30 tab 03/31/16 Unknown Rx Azithromycin [Zithromax Z-FABIOLA] 0 mg PO DAILY #6 tab 05/16/16 Unknown Rx Benzonatate [Tessalon Perles] 100 mg PO Q8HR #30 capsule 05/16/16 Unknown Rx predniSONE [Deltasone] 20 mg PO QDAY #5 tab 03/17/18 Unknown Rx traMADol [Ultram] 50 mg PO Q6HR PRN #10 tablet 03/17/18 Unknown Rx Ibuprofen [Motrin] 600 mg PO Q8H PRN #20 tablet 06/29/18 Unknown Rx Tramadol HCl [Ultram] 50 mg PO Q6H PRN #12 tablet 06/29/18 Unknown Rx Allergies Allergy/AdvReac Type Severity Reaction Status Date / Time No Known Allergies Allergy Verified 03/17/18 09:18 ED Review of Systems ROS: Stated complaint: R KNEE PAIN Other details as noted in HPI Constitutional: denies: chills, fever Eyes: denies: eye pain, eye discharge, vision change ENT: denies: ear pain, throat pain Respiratory: denies: cough, shortness of breath, wheezing Cardiovascular: denies: chest pain, palpitations Endocrine: no symptoms reported Gastrointestinal: denies: abdominal pain, nausea, diarrhea Genitourinary: denies: urgency, dysuria Musculoskeletal: arthralgia. denies: back pain, joint swelling Skin: denies: rash, lesions Neurological: denies: headache, weakness, paresthesias Psychiatric: denies: anxiety, depression Hematological/Lymphatic: denies: easy bleeding, easy bruising ED Past Medical Hx - Past Medical History Previous Medical History?: Yes Hx Hypertension: Yes Hx Heart Attack/AMI: Yes Hx Congestive Heart Failure: No Hx Diabetes: No Hx Arthritis: Yes Hx Asthma: No Hx COPD: Yes Additional medical history: "sepsis" 09/2014 - Surgical History Past Surgical History?: Yes Hx Coronary Stent: Yes (1 stent) Additional Surgical History: Peptic Ulcer surgery. 2 Knee surgeries - Social History Smoking Status: Current Every Day Smoker Substance Use Type: Alcohol - Medications Home Medications: Home Medications Medication Instructions Recorded Confirmed Last Taken Type Aspirin [Aspirin BABY CHEW TAB] 81 mg PO QDAY #30 tab 03/31/16 Unknown Rx AtorvaSTATin [Lipitor] 40 mg PO QHS #25 tablet 03/31/16 Unknown Rx Clopidogrel [Plavix] 75 mg PO QDAY #30 tablet 03/31/16 Unknown Rx Lisinopril [Zestril TAB] 5 mg PO QDAY #30 tablet 03/31/16 Unknown Rx Metoprolol Xl [Metoprolol 25 mg PO QDAY #30 tablet 03/31/16 Unknown Rx SUCCINATE ER TAB] Nitroglycerin [Nitrostat] 0.4 mg SL Q5M PRN #30 tab 03/31/16 Unknown Rx amLODIPine [Norvasc] 5 mg PO DAILY #30 tab 03/31/16 Unknown Rx Azithromycin [Zithromax Z-FABIOLA] 0 mg PO DAILY #6 tab 05/16/16 Unknown Rx Benzonatate [Tessalon Perles] 100 mg PO Q8HR #30 capsule 05/16/16 Unknown Rx predniSONE [Deltasone] 20 mg PO QDAY #5 tab 03/17/18 Unknown Rx traMADol [Ultram] 50 mg PO Q6HR PRN #10 tablet 03/17/18 Unknown Rx Ibuprofen [Motrin] 600 mg PO Q8H PRN #20 tablet 06/29/18 Unknown Rx Tramadol HCl [Ultram] 50 mg PO Q6H PRN #12 tablet 06/29/18 Unknown Rx ED Physical Exam - General Limitations: No Limitations General appearance: alert, in no apparent distress - Head Head exam: Present: atraumatic, normocephalic - Eye Eye exam: Present: normal appearance - Neck Neck exam: Present: normal inspection, full ROM. Absent: tenderness, meningismus, lymphadenopathy - Rectal Rectal exam: Present: deferred - Extremities Exam Extremities exam: Present: full ROM, tenderness, normal capillary refill. Absent: calf tenderness - Expanded Lower Extremity Exam Right Hip exam: Present: normal inspection, full ROM. Absent: tenderness, swelling Upper Leg exam: Present: normal inspection, full ROM. Absent: tenderness, swelling Knee exam: Present: full ROM, tenderness, swelling, full knee extension. Absent: abrasion, laceration, ecchymosis, deformity, crepidus, dislocation, erythema, effusion, pain w/ pronation/supination, posterior draw sign, pain/laxity with valgus, pain/laxity with varus Lower Leg exam: Present: normal inspection, full ROM. Absent: tenderness, swelling, abrasion, laceration, ecchymosis, deformity, crepidus, dislocation, erythema, palpable cord, Cornelius's sign Ankle exam: Present: normal inspection, full ROM. Absent: tenderness, swelling Foot/Toe exam: Present: normal inspection, full ROM. Absent: tenderness, swelling Neuro vascular tendon exam: Present: no vascular compromise Gait: Positive: observed and limited by pain - Back Exam Back exam: Present: normal inspection, full ROM. Absent: tenderness, CVA ten derness (R), CVA tenderness (L), muscle spasm, paraspinal tenderness, vertebral tenderness, rash noted - Neurological Exam Neurological exam: Present: alert, oriented X3, normal gait - Psychiatric Psychiatric exam: Present: normal affect, normal mood - Skin Skin exam: Present: warm, dry, intact, normal color. Absent: rash ED Course Vital Signs 06/29/18 03:23 Temperature 97.9 F Pulse Rate 103 H Respiratory 18 Rate Blood Pressure 125/97 O2 Sat by Pulse 98 Oximetry - Reevaluation(s) Reevaluation #1: 06/29/18 07:58 Patient is speaking in full sentences with no signs of distress noted. ED Lower Extremity MDM - Medical Decision Making This is a 62-year-old male that presents with right knee strain. Patient is stable and was examined by me. I referred patient to an orthopedic doctor for further evaluation for possible MRI. X-ray has been obtained and dictated by the radiologist. Patient is notified of the x-ray report with noted by the patient. Patient does have normal gait with no tenderness and no joint swelling. No ecchymosis. no joint redness or swelling. Not warm to touch. No signs of cellulites present. Patient received a knee immobilize and a walker. Patient was instructed to RICE therapy. Patient received Motrin for pain. Patient is discharged with Motrin and Ultram. At time of discharge, the patient does not seem toxic or ill in appearance. No acute signs of distress noted. Patient agrees to discharge treatment plan of care. No further questions noted by the patient. Critical care attestation.: If time is entered above; I have spent that time in minutes in the direct care of this critically ill patient, excluding procedure time. ED Disposition Clinical Impression: Strain of right knee Qualifiers: Encounter type: initial encounter Qualified Code(s): S86.911A - Strain of unspecified muscle(s) and tendon(s) at lower leg level, right leg, initial encounter Disposition: TO HOME OR SELFCARE Is pt being admited?: No Does the pt Need Aspirin: No Condition: Stable Instructions: Knee Pain (ED), Knee Immobilizer (ED), RICE Therapy (ED), Tramadol (By mouth) Additional Instructions: Follow-up with a orthopedic doctor in 3-5 days or if symptoms worsen and continue return to emergency room as soon as possible. Do not operate any machinery while taking Ultram as this may cause drowsiness. Prescriptions: Ibuprofen [Motrin] 600 mg PO Q8H PRN #20 tablet PRN Reason: Pain Tramadol HCl [Ultram] 50 mg PO Q6H PRN #12 tablet PRN Reason: Pain , Severe (7-10) Referrals: PRIMARY CARE, [Referring] - 3-5 Days SYLVIA AYALA MD [Staff Physician] - 3-5 Days [facility] [Outside] - 3-5 Days Forms: Work/School Release Form(ED)
== END 2018-06-29 08:30 | disposition home or self-care (01) ==
LOC: ED 03:15
DX: S86.911A Strain of unspecified muscle(s) and tendon(s) at lower leg level, right leg, initial encounter (principal); I10 Essential (primary) hypertension; I25.2 Old myocardial infarction; M19.90 Unspecified osteoarthritis, unspecified site; F17.200 Nicotine dependence, unspecified, uncomplicated; Z95.1 Presence of aortocoronary bypass graft; Z79.82 Long term (current) use of aspirin; W01.0XXA Fall on same level from slipping, tripping and stumbling without subsequent striking against object, initial encounter; Y93.89 Activity, other specified; Y92.89 Other specified places as the place of occurrence of the external cause; Y99.8 Other external cause status
CPT/HCPCS: 99283

== ENCOUNTER 2018-09-16 11:51 | Inpatient (IN) | payer MEDICAID ==
--- NOTE | 2018-09-16 12:26 | Consultation ---
History of Present Illness Consult date: 09/16/18 History of present illness: 62 y/o man with h/o HTN, CAD, COPD who presents to the ED with left hand numbness/weakness since waking up. Last known normal at 0200. Emergent telestroke consult requested. CT head reviewed and case discussed with ED staff. Medications and Allergies Allergies Allergy/AdvReac Type Severity Reaction Status Date / Time No Known Allergies Allergy Verified 09/16/18 12:19 Home Medications Medication Instructions Recorded Confirmed Last Taken Type Aspirin [Aspirin BABY CHEW TAB] 81 mg PO QDAY #30 tab 03/31/16 Unknown Rx AtorvaSTATin [Lipitor] 40 mg PO QHS #25 tablet 03/31/16 Unknown Rx Clopidogrel [Plavix] 75 mg PO QDAY #30 tablet 03/31/16 Unknown Rx Lisinopril [Zestril TAB] 5 mg PO QDAY #30 tablet 03/31/16 Unknown Rx Metoprolol Xl [Metoprolol 25 mg PO QDAY #30 tablet 03/31/16 Unknown Rx SUCCINATE ER TAB] Nitroglycerin [Nitrostat] 0.4 mg SL Q5M PRN #30 tab 03/31/16 Unknown Rx amLODIPine [Norvasc] 5 mg PO DAILY #30 tab 03/31/16 Unknown Rx Azithromycin [Zithromax Z-FABIOLA] 0 mg PO DAILY #6 tab 05/16/16 Unknown Rx Benzonatate [Tessalon Perles] 100 mg PO Q8HR #30 capsule 05/16/16 Unknown Rx predniSONE [Deltasone] 20 mg PO QDAY #5 tab 03/17/18 Unknown Rx traMADol [Ultram] 50 mg PO Q6HR PRN #10 tablet 03/17/18 Unknown Rx Ibuprofen [Motrin] 600 mg PO Q8H PRN #20 tablet 06/29/18 Unknown Rx Tramadol HCl [Ultram] 50 mg PO Q6H PRN #12 tablet 06/29/18 Unknown Rx - Level of Consciousness 1a. Level of Consciousness: alert/keenly responsive - LOC Questions 1b. LOC Questions: answers both correctly - LOC Command 1c. LOC Commands: performs tasks correctly - Best Gaze 2. Best Gaze: normal - Visual 3. Visual: no visual loss - Facial Palsy 4. Facial Palsy: normal symmetrical movement - Motor Arm 5a. Motor Arm Left: no drift 5b. Motor Arm Right: no drift - Motor Leg 6a. Motor Leg Left: no drift 6b. Motor Leg Right: no drift - Limb Ataxia 7. Limb Ataxia: absent - Sensory 8. Sensory: mild/moderate sensory loss - Best Language 9. Best Language: no aphasia - Dysarthria 10. Dysarthria: normal - Extinction and Inattention 11. Extinction/Inattention: no abnormality (slower rapid alternating movement on left hand) - Scoring Total Score: 1 Stroke Severity: Minor Stroke Assessment and Plan [facility] Impression: Stroke Differential Diagnosis: 1. Cardioembolic stroke 2. Small vessel disease/lacune 3. Thromboembolic, [id number] mechanism 4. Hypercoagulable state-related infarct 5. Thrombotic mechanism, large artery disease 6. Transient ischemic attack Comments: Last known well: 0200 Door time:1151 [facility] contacted: 1218 [facility] at bedside: 1223 NIHSS assessment time (after CT):1227 Needle time:TPA not considered since he is out of the TPA window Thrombectomy not considered since large proximal intracranial vessel occlusion is not suspected. Also has minimal neurologic deficits Discussion: Our recommendations are outlined below. Recommendations: ASA, IV fluids and permissive hypertension (Keep BP < 220/110) Neurochecks DVT prophylaxis Follow up with Neurology for further testing/evaluation Medical Decision Making: - Extensive number of diagnosis or management options are considered above. - Extensive amount of complex data reviewed. - High risk of complication and/or morbidity or mortality are associated with differential diagnostic considerations above. - There may be uncertain outcome and increased probability of prolonged functional impairment or high probability of severe prolonged functional impairment associated with some of these differential diagnosis. Medical Data Reviewed: 1.Data reviewed include clinical labs, radiology, Medical Tests; 2.Tests results discussed w/performing or interpreting physician; 3.Obtaining/reviewing old medical records; 4.Obtaining case history from another source; 5.Independent review of image, tracing or specimen.
--- NOTE | 2018-09-16 12:36 | Cat Scan Report ---
CT HEAD WITHOUT CONTRAST: HISTORY: Stroke. TECHNIQUE: Sequential 2.5mm CT images. COMPARISON: none. FINDINGS: Cerebral Parenchyma: Within normal limits. Cerebellum: Within normal limits. Brainstem: Within normal limits. Ventricles: Normal. Sella: Normal. Extra-axial spaces: Normal. Basal Cisterns: Normal. Intracranial Hemorrhage: None. Midline Shift: None. Calvarium: Normal. Sinuses: There is moderate mucosal thickening throughout the ethmoid air cells. The remaining sinuses are well-aerated. Mastoid Air Cells: Normal. Visualized Orbits: Normal. IMPRESSION: Cranial CT scan within normal limits.
[2018-09-16 12:52] LABS: Basophils # (Auto) 0.1 K/mm3 (0.0-0.1); Basophils % (Auto) 1.2 % (0.0-1.8); Eosinophils # (Auto) 0.3 K/mm3 (0.0-0.4); Hematocrit 43.9 % (35.5-45.6); Hemoglobin 14.8 gm/dl (11.8-15.2); Lymphocytes # (Auto) 3.2 K/mm3 (1.2-5.4); Lymphocytes % (Auto) 37.6 % (13.4-35.0); Mean Corpuscular HGB Conc 34 % (32-34); Mean Corpuscular Volume 89 fl (84-94); Monocytes # (Auto) 0.6 K/mm3 (0.0-0.8); Monocytes % (Auto) 7.1 % (0.0-7.3); Platelet Count 241 K/mm3 (140-440); Red Blood Count 4.96 M/mm3 (3.65-5.03); Red Cell Distribution Width 15.9 % (13.2-15.2)
[2018-09-16 13:06] LABS: INR 1.04 (0.87-1.13); Partial Thromboplastin Time 26.4 Sec. (24.2-36.6)
[2018-09-16 13:07] LABS: BUN/Creatinine Ratio 6; Blood Urea Nitrogen 5 mg/dL (9-20); Calcium 9.8 mg/dL (8.4-10.2); Hemolysis Index 1
--- NOTE | 2018-09-16 13:39 | Emergency Department Report ---
ED Neuro Deficit HPI - General Chief Complaint: Neuro Symptoms/Deficit Stated Complaint: NUMBNESS IN HAND Time Seen by Provider: 09/16/18 12:17 Source: patient, EMS Mode of arrival: Wheelchair Limitations: Other - History of Present Illness Initial Comments: 62-year-old male, history of CAD with stents, HTN, COPD presents to ED with complaint of left arm weakness since waking and around 9:45 AM. Patient states he went to bed at 2 AM, and was normal at that time. 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 Denies slurred speech, denies left leg weakness or numbness. -: This morning Last Observed Normal: 02:00 Location: left arm Presenting Symptoms: Present: Weak/Paralyzed One Side History of same: No Place: home Severity: mild Quality: weak, tingling Improves With: none Worsens With: none Associated Symptoms: denies other symptoms. denies: chest pain, fever/chills, headaches, nausea/vomiting, shortness of breath - Related Data Home Medications: Home Medications Medication Instructions Recorded Confirmed Last Taken Albuterol Sulfate [Proventil Hfa] 1 - 2 puff IH Q6H PRN 09/16/18 09/16/18 Unknown HYDROcodone/APAP 5-325 [[place] 1 each PO Q12H 09/16/18 09/16/18 Unknown 5/325] Nabumetone (Nf) [Relafen (Nf)] 500 mg PO QDAY 09/16/18 09/16/18 Unknown Previous Rx's Medication Instructions Recorded Last Taken Type Aspirin [Aspirin BABY CHEW TAB] 81 mg PO QDAY #30 tab 03/31/16 Unknown Rx Allergies/Adverse Reactions: Allergies Allergy/AdvReac Type Severity Reaction Status Date / Time No Known Allergies Allergy Verified 09/16/18 12:19 ED Review of Systems ROS: Stated complaint: NUMBNESS IN HAND Other details as noted in HPI Comment: All other systems reviewed and negative Respiratory: denies: shortness of breath Cardiovascular: denies: chest pain Neurological: weakness, paresthesias. denies: headache ED Past Medical Hx - Past Medical History Hx Hypertension: Yes Hx Heart Attack/AMI: Yes Hx Congestive Heart Failure: No Hx Diabetes: No Hx Arthritis: Yes Hx Asthma: No Hx COPD: Yes Additional medical history: "sepsis" 09/2014 - Surgical History Past Surgical History?: Yes Hx Coronary Stent: Yes (1 stent) Additional Surgical History: Peptic Ulcer surgery. 2 Knee surgeries - Social History Smoking Status: Current Every Day Smoker Substance Use Type: Alcohol - Medications Home Medications: Home Medications Medication Instructions Recorded Confirmed Last Taken Type Aspirin [Aspirin BABY CHEW TAB] 81 mg PO QDAY #30 tab 03/31/16 09/16/18 Unknown Rx Albuterol Sulfate [Proventil Hfa] 1 - 2 puff IH Q6H PRN 09/16/18 09/16/18 Unknown History HYDROcodone/APAP 5-325 [[place] 1 each PO Q12H 09/16/18 09/16/18 Unknown History 5/325] Nabumetone (Nf) [Relafen (Nf)] 500 mg PO QDAY 09/16/18 09/16/18 Unknown History ED Neuro Physical Exam - General Limitations: Other General appearance: alert, in no apparent distress Suspected Stroke: Yes - Head Head exam: Present: atraumatic, normocephalic - Eye Eye exam: Present: normal appearance, PERRL, EOMI - ENT ENT exam: Present: mucous membranes moist - Neck Neck exam: Present: normal inspection - Respiratory Respiratory exam: Present: normal lung sounds bilaterally. Absent: respiratory distress - Cardiovascular Cardiovascular Exam: Present: regular rate, normal rhythm - GI/Abdominal GI/Abdominal exam: Present: soft. 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 Level of Consciousness: alert/keenly responsive 1b. LOC Questions: answers both correctly 1c. LOC Commands: performs tasks correctly 2. Best Gaze: normal 3. Visual: no visual loss 4. Facial Palsy: normal symmetrical movement 5b. Motor Arm Right: no drift 5a. Motor Arm Left: no drift 6a. Motor Leg Left: no drift 6b. Motor Leg Right: no drift 7. Limb Ataxia: absent 8. Sensory: mild/moderate sensory loss 9. Best Language: no aphasia 10. Dysarthria: normal 11. Extinction/Inattention: no abnormality Total Score: 1 Stroke Severity: Minor Stroke - Psychiatric Psychiatric exam: Present: normal affect, normal mood - Skin Skin exam: Present: warm, dry, intact, normal color ED Course Vital Signs 09/16/18 09/16/18 09/16/18 12:48 12:49 13:00 Temperature 98.2 F Pulse Rate 86 76 Respiratory 17 17 19 Rate Blood Pressure 139/88 Blood Pressure 133/93 [Left] O2 Sat by Pulse 96 97 96 Oximetry 09/16/18 09/16/18 09/16/18 14:00 15:39 16:00 Temperature Pulse Rate 81 86 87 Respiratory 13 21 18 Rate Blood Pressure 127/82 127/82 155/99 Blood Pressure [Left] O2 Sat by Pulse 97 97 96 Oximetry 09/16/18 16:20 Temperature Pulse Rate 87 Respiratory 22 Rate Blood Pressure 127/82 Blood Pressure [Left] O2 Sat by Pulse Oximetry - Lab Data Result diagrams: 09/16/18 12:42 09/16/18 12:42 Lab Results 09/16/18 09/16/18 09/16/18 Range/Units 12:37 12:42 12:42 WBC 8.5 (4.5-11.0) K/mm3 RBC 4.96 (3.65-5.03) M/mm3 Hgb 14.8 (11.8-15.2) gm/dl Hct 43.9 (35.5-45.6) % MCV 89 (84-94) fl MCH 30 (28-32) pg MCHC 34 (32-34) % RDW 15.9 H (13.2-15.2) % Plt Count 241 (140-440) K/mm3 Lymph % (Auto) 37.6 H (13.4-35.0) % [place] % (Auto) 7.1 (0.0-7.3) % Eos % (Auto) 3.0 (0.0-4.3) % Baso % (Auto) 1.2 (0.0-1.8) % Lymph # 3.2 (1.2-5.4) K/mm3 [place] # 0.6 (0.0-0.8) K/mm3 Eos # 0.3 (0.0-0.4) K/mm3 Baso # 0.1 (0.0-0.1) K/mm3 Seg Neutrophils % 51.1 (40.0-70.0) % Seg Neutrophils # 4.4 (1.8-7.7) K/mm3 PT 13.3 (12.2-14.9) Sec. INR 1.04 (0.87-1.13) APTT 26.4 (24.2-36.6) Sec. Thrombin Time (15.1-19.6) Sec. Sodium (137-145) mmol/L Potassium (3.6-5.0) mmol/L Chloride (98-107) mmol/L Carbon Dioxide (22-30) mmol/L Anion Gap mmol/L BUN (9-20) mg/dL Creatinine (0.8-1.5) mg/dL Estimated GFR ml/min BUN/Creatinine Ratio % Glucose (75-100) mg/dL POC Glucose 84 (70-105) Calcium (8.4-10.2) mg/dL Troponin T (0.00-0.029) ng/mL 09/16/18 09/16/18 Range/Units 12:42 12:42 WBC (4.5-11.0) K/mm3 RBC (3.65-5.03) M/mm3 Hgb (11.8-15.2) gm/dl Hct (35.5-45.6) % MCV (84-94) fl MCH (28-32) pg MCHC (32-34) % RDW (13.2-15.2) % Plt Count (140-440) K/mm3 Lymph % (Auto) (13.4-35.0) % [place] % (Auto) (0.0-7.3) % Eos % (Auto) (0.0-4.3) % Baso % (Auto) (0.0-1.8) % Lymph # (1.2-5.4) K/mm3 [place] # (0.0-0.8) K/mm3 Eos # (0.0-0.4) K/mm3 Baso # (0.0-0.1) K/mm3 Seg Neutrophils % (40.0-70.0) % Seg Neutrophils # (1.8-7.7) K/mm3 PT (12.2-14.9) Sec. INR (0.87-1.13) APTT (24.2-36.6) Sec. Thrombin Time 16.5 (15.1-19.6) Sec. Sodium 146 H (137-145) mmol/L Potassium 4.7 (3.6-5.0) mmol/L Chloride 106.2 (98-107) mmol/L Carbon Dioxide 29 (22-30) mmol/L Anion Gap 16 mmol/L BUN 5 L (9-20) mg/dL Creatinine 0.9 (0.8-1.5) mg/dL Estimated GFR > 60 ml/min BUN/Creatinine Ratio 6 % Glucose 97 (75-100) mg/dL POC Glucose (70-105) Calcium 9.8 (8.4-10.2) mg/dL Troponin T < 0.010 (0.00-0.029) ng/mL - Radiology Data Radiology results: report reviewed, image reviewed - Medical Decision Making - weakness, numbness to left arm - CT Head negative - not a tPA candidate since not within window - seen and evaluated by neurologist - admit to hospitalist - Differential Diagnosis CVA, cervical radiculopathy Critical care attestation.: If time is entered above; I have spent that time in minutes in the direct care of this critically ill patient, excluding procedure time. ED Disposition Clinical Impression: CVA (cerebral vascular accident) Qualifiers: Precerebral and cerebral artery: middle cerebral artery Laterality of affected vessel: right Disposition: DC-09 OP ADMIT IP TO THIS HOSP Is pt being admited?: Yes Condition: Stable Time of Disposition: 13:42
--- NOTE | 2018-09-16 13:51 | History and Physical Report ---
History of Present Illness Chief complaint: I feel weak on my left side History of present illness: 62 YO Male with HTN, CAD S/P Stent Placement on DAPT, Obesity, Nicotine Dependence, HLD, COPD presents to ED for evaluation. Pt states that he was in his usual state of health at bedtime which was around 0200hrs. Pt reports that upon waking from sleep at 0945 hrs he experienced Left arm weakness, and numbness. 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 EMS notified, and upon arrival the patient was found to have a neurologic deficit. A code stroke was called and the patient transported to [facility]. Pt seen and evaluated in ED and found to have symptoms consistent with CVA. Teleneurology consulted, but patient deemed not to be a candidate for TPA. Pt admitted to telemetry and initiated on CVA protocol. Neurology consulted in ED. Pt denies fever, chills, CP, Palpitations, NVD, Trauma, BRBPR, productive cough, skin rash, vertigo, seizures, loss of bowel/bladder continence. Past History Past Medical History: acute [place], arthritis, COPD, hypertension, hyperlipidemia Past Surgical History: total knee replacement, Other (Cardiac cath, ) Social history: , lives with family, smoking. denies: alcohol abuse Family history: hypertension Medications and Allergies Allergies Allergy/AdvReac Type Severity Reaction Status Date / Time No Known Allergies Allergy Verified 09/16/18 12:19 Home Medications Medication Instructions Recorded Confirmed Last Taken Type Aspirin [Aspirin BABY CHEW TAB] 81 mg PO QDAY #30 tab 03/31/16 Unknown Rx AtorvaSTATin [Lipitor] 40 mg PO QHS #25 tablet 03/31/16 Unknown Rx Clopidogrel [Plavix] 75 mg PO QDAY #30 tablet 03/31/16 Unknown Rx Lisinopril [Zestril TAB] 5 mg PO QDAY #30 tablet 03/31/16 Unknown Rx Metoprolol Xl [Metoprolol 25 mg PO QDAY #30 tablet 03/31/16 Unknown Rx SUCCINATE ER TAB] Nitroglycerin [Nitrostat] 0.4 mg SL Q5M PRN #30 tab 03/31/16 Unknown Rx amLODIPine [Norvasc] 5 mg PO DAILY #30 tab 03/31/16 Unknown Rx Azithromycin [Zithromax Z-FABIOLA] 0 mg PO DAILY #6 tab 05/16/16 Unknown Rx Benzonatate [Tessalon Perles] 100 mg PO Q8HR #30 capsule 05/16/16 Unknown Rx predniSONE [Deltasone] 20 mg PO QDAY #5 tab 03/17/18 Unknown Rx traMADol [Ultram] 50 mg PO Q6HR PRN #10 tablet 03/17/18 Unknown Rx Ibuprofen [Motrin] 600 mg PO Q8H PRN #20 tablet 06/29/18 Unknown Rx Tramadol HCl [Ultram] 50 mg PO Q6H PRN #12 tablet 06/29/18 Unknown Rx Review of Systems Constitutional: no weight loss, no weight gain, no fever, no chills Ears, nose, mouth and throat: no ear pain, no ear discharge, no tinnitis, no decreased hearing, no nose pain, no nasal congestion Cardiovascular: no chest pain, no orthopnea, no palpitations Respiratory: no cough, no cough with sputum, no excessive sputum, no hemoptysis, no shortness of breath Gastrointestinal: no nausea, no vomiting, no diarrhea, no constipation, no change in bowel habits Genitourinary Male: no hematuria, no flank pain, no discharge, no urinary frequency, no urinary hesitancy Rectal: no pain, no incontinence, no bleeding Musculoskeletal: no neck stiffness, no neck pain, no shooting arm pain, no arm numbness/tingling, no low back pain Integumentary: no rash, no pruritis, no sores, no wounds Neurological: weakness, numbness, ataxia, motor disturbance, sensory deficit, no transient paralysis, no vertigo, no headaches, no migraines, no change in speech, no change in mentation Psychiatric: no anxiety, no memory loss, no change in sleep habits, no sleep disturbances, no insomnia, no hypersomnia, no change in appetite Endocrine: no cold intolerance, no heat intolerance, no polyphagia, no excessive thirst, no polydipsia, no polyuria Hematologic/Lymphatic: no easy bruising, no easy bleeding Allergic/Immunologic: no urticaria, no allergic rhinitis, no wheezing Exam - Constitutional Vitals: Temp Pulse Resp BP Pulse Ox 98.2 F 86 17 133/93 97 09/16/18 12:48 09/16/18 12:48 09/16/18 12:49 09/16/18 12:48 09/16/18 12:49 General appearance: Present: mild distress, obese - EENT Eyes: Present: PERRL ENT: hearing intact, clear oral mucosa - Neck Neck: Present: supple, normal ROM - Respiratory Respiratory effort: normal Respiratory: bilateral: CTA - Cardiovascular Heart Sounds: Present: S1 & S2. Absent: rub, click - Extremities Extremities: pulses symmetrical, No edema Peripheral Pulses: within normal limits - Abdominal General gastrointestinal: Present: soft, non-tender, non-distended, normal bowel sounds Male genitourinary: Present: normal - Integumentary Integumentary: Present: clear, warm, dry - Musculoskeletal Musculoskeletal: left sided weakness - Psychiatric Psychiatric: appropriate mood/affect, intact judgment & insight - Neurologic Neurologic: CNII-XII intact, moves all extremities Results - Labs CBC & Chem 7: 09/16/18 12:42 09/16/18 12:42 Labs: Abnormal lab results 09/16/18 09/16/18 Range/Units 12:42 12:42 RDW 15.9 H (13.2-15.2) % Lymph % (Auto) 37.6 H (13.4-35.0) % Sodium 146 H (137-145) mmol/L BUN 5 L (9-20) mg/dL Assessment and Plan - Patient Problems (1) CVA (cerebral vascular accident) Current Visit: Yes Status: Acute Qualifiers: Precerebral and cerebral artery: middle cerebral artery Laterality of affected vessel: right Plan to address problem: Stroke Protocol: Admit to telemetry, CT head, MRI Brain, MRA Brain, Echo, Carotid doppler, Neurology consulted in ED, PT/OT/Speech Therapy, Lipid panel, Statin therapy, DAPT (2) HTN (hypertension) Current Visit: Yes Status: Acute Qualifiers: Hypertension type: essential hypertension Qualified Code(s): I10 - [place] l (primary) hypertension Plan to address problem: Permissive hypertension overnight, monitor BP q shift, systolic goal overnight is less that 170. Pt normotensive at admission. (3) Hypernatremia Current Visit: Yes Status: Acute Plan to address problem: encourage free water intake, repeat bmp in am. (4) CAD (coronary artery disease) Current Visit: No Status: Chronic Qualifiers: Coronary Disease-Associated Artery/Lesion type: [place] coronary artery Plan to address problem: lipid panel, low cholesterol diet, risk factor reduction, (5) Obesity hypoventilation syndrome Current Visit: Yes Status: Acute Plan to address problem: supplemental oxygen, nebulizer therapy, NIPPV as clinically indicated, pulse oximetry, pulmonary toilet, early ambulation. (6) DVT prophylaxis Current Visit: Yes Status: Acute Plan to address problem: SCD to BLE while in bed, prophylactic lovenox
[2018-09-16] MEDS ORDERED: PROVENTIL IH PRN (13:53)
[2018-09-16] MEDS ORDERED: TYLENOL PO PRN (13:53)
[2018-09-16] MEDS ORDERED: DULCOLAX PR PRN (13:53)
[2018-09-16] MEDS ORDERED: MILK OF MAGNESIA PO PRN (13:53)
[2018-09-16] MEDS ORDERED: REGLAN PO PRN (13:53)
[2018-09-16] MEDS ORDERED: SODIUM CHLORIDE FLUSH SYRINGE 10 ML IV PRN (13:53)
[2018-09-16] MEDS ORDERED: ZOFRAN IV PRN (13:53)
[2018-09-16] MEDS ORDERED: PHENERGAN PR PRN (13:53)
[2018-09-16] MEDS ORDERED: NITROSTAT SL PRN (13:55)
[2018-09-16] MEDS: TESSALON PERLES PO SCH ×2 (15:50→22:05)
--- NOTE | 2018-09-16 21:48 | Consultation ---
History of Present Illness Consult date: 09/16/18 Requesting physician: MATT MARTIN Chief complaint: weakness and numbness left hand, brief sharp head pain History of present illness: This 62-year-old right-handed -[place] male noted at 9:45 AM yesterday a sharp pain on the right side of his head without nausea or photophobia or phonophobia but with some blurring of vision. 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 Today he is better but the weakness and numbness are not gone. He states that when EMS came the niurkarpaige broke and he landed on his neck and head and has some residual neck pain and right-sided head pain from that injury. He has also had several different falls, the last one of which was 2 months ago when he was walking in the dark and didn't see a drop from a curb and fell and hurt his knee. Blood pressures at home when asked are 120-135/80. He takes hydrocodone for pain and Naprosyn 500 mg size when needed. He takes metoprolol for hypertension but no statin. He is listed as having been on a baby aspirin at home. 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 with 4 children, 6 or 7 grandchildren alive and well. Family history: Negative for strokes or aneurysms or epilepsy. Hypertension in his mother and 2 sisters. Diabetes in his mother and one sister. Review of systems: No headaches or dizziness, no snoring or pauses noted, not sleepy driving. No memory problems. Gen. appearance: Well-developed but obese early 60s -[place] male in no acute distress. HEENT: Atraumatic normocephalic bruits, superficial temporal artery pulses 2+ without soreness, oropharynx pink and moist. Neck: Supple, no bruits. Heart: No murmur heard but sounds are distant. Extremities: No clubbing cyanosis or edema, 2 dorsalis pedis pulses bilaterally. Neurologic exam: Mental status: Awake, alert oriented 3, speech is clear, names Pres. but gives Centre as DELIVERER MERCHANDISE after first name and first letter of last name as prompts. Gets 3 of 3 objects at 3 minutes. Serial sevens are intact, spells WORLD backwards correctly, abstracts and names well, no right-left confusion. Cranial nerves: [place] are full, no papilledema, spontaneous venous pulsations are present, PERRLA, EOMs are full without nystagmus or diplopia, facial sensation is intact, no facial weakness, Garcia is midline, palate rises sy mmetrically in the midline to phonation with positive gag bilaterally, shoulder shrug is 5 bilaterally, tongue protrudes in the midline. Cerebellar: Finger to nose and heel to mendez are intact. Sensory exam: Light touch is diminished in the left thumb, pinprick is diminished in the left arm and left hand especially dorsal first webspace, vibrations are decreased in the left hand, double simultaneous stimulation is intact bilaterally. Motor exam upper extremities: No drift or pronation; deltoid is 5, biceps 4- and triceps 4+ on the left and distally 3+-4- on the left in all groups but all 5 on the right. Brachioradialis muscle however is a bit soft bilaterally though equal in bulk. Left rapid alternating movements are slower. Motor examination lower extremities: No leg lag, iliopsoas, quadriceps, anterior tibials and gastrocnemius are 5 bilaterally. Rapid alternating movements are intact bilaterally. Reflexes: Palmomental, snout and jaw jerk are negative. Triceps, biceps and brachioradialis are 1 bilaterally. Knee jerks are trace bilaterally and ankle jerks are 0 bilaterally remaining 0 with reinforcement and without clonus. Toes are bilaterally downgoing to Babinski testing. Past History Past Medical History: acute [place], arthritis, COPD, hypertension, hyperlipidemia Past Surgical History: total knee replacement, Other (Cardiac cath, ) Social history: , lives with family, smoking. denies: alcohol abuse Family history: hypertension Medications and Allergies Allergies Allergy/AdvReac Type Severity Reaction Status Date / Time No Known Allergies Allergy Verified 09/16/18 12:19 Home Medications Medication Instructions Recorded Confirmed Last Taken Type Aspirin [Aspirin BABY CHEW TAB] 81 mg PO QDAY #30 tab 03/31/16 09/16/18 Unknown Rx Albuterol Sulfate [Proventil Hfa] 1 - 2 puff IH Q6H PRN 09/16/18 09/16/18 Unknown History HYDROcodone/APAP 5-325 [Birney 1 each PO Q12H 09/16/18 09/16/18 Unknown History 5/325] Nabumetone (Nf) [Relafen (Nf)] 500 mg PO QDAY 09/16/18 09/16/18 Unknown History Active Meds: Active Medications Acetaminophen (Tylenol) 650 mg PO Q4H PRN PRN Reason: Pain, Mild (1-3) Albuterol (Proventil) 2.5 mg IH Q3HRT PRN PRN Reason: Shortness Of Breath Aspirin (Baby Aspirin) 81 mg PO QDAY CAR Atorvastatin Calcium (Lipitor) 40 mg PO QHS [facility] Benzonatate (Tessalon Perles) 100 mg PO Q8HR [facility] Last Admin: 09/16/18 15:50 Dose: 100 mg Documented by: Bisacodyl (Dulcolax) 10 mg NH QDAY PRN PRN Reason: Constipation Clopidogrel Bisulfate (Plavix) 75 mg PO QDAY [facility] Enoxaparin Sodium (Lovenox) 40 mg SUB-Q QDAY@2200 [facility] Magnesium Hydroxide (Milk Of Magnesia) 30 ml PO Q4H PRN PRN Reason: Constipation Metoclopramide HCl (Reglan) 10 mg PO Q6H PRN PRN Reason: Nausea And Vomiting Nitroglycerin (Nitrostat) 0.4 mg SL Q5M PRN PRN Reason: Chest Pain Ondansetron HCl (Zofran) 4 mg IV Q8H PRN PRN Reason: Nausea And Vomiting Prednisone (Deltasone) 20 mg PO QDAY CAR Promethazine HCl (Phenergan) 25 mg NH Q6H PRN PRN Reason: Nausea And Vomiting Sodium Chloride (Sodium Chloride Flush Syringe 10 Ml) 10 ml IV PRN PRN PRN Reason: LINE FLUSH Tramadol HCl (Ultram) 50 mg PO Q6HR PRN PRN Reason: Pain Physical Examination - Vital Signs Vital Signs: Vital Signs Temp Pulse Resp BP Pulse Ox 98.2 F 86 17 133/93 96 09/16/18 12:48 09/16/18 12:48 09/16/18 12:48 09/16/18 12:48 09/16/18 12:48 Results - Laboratory Findings CBC and BMP: 09/16/18 12:42 09/16/18 12:42 Abnormal Lab Findings: Abnormal Labs 09/16/18 09/16/18 12:42 12:42 RDW 15.9 H Lymph % (Auto) 37.6 H Sodium 146 H BUN 5 L Assessment and Plan Impression: 1. Lacunar infarct 2. Hypertension Plan: 1. MRI brain pending 2. Statin to be added. 3. May need further testing depending on MRI results. 4. If symptoms persist despite negative MRI, could have some type of entrapment in the axilla or cervical disc disease and should first have cervical spine MRI which could be done as an outpatient. If that is negative may need left upper extremity MRI brachial plexus pathology. 5. Will check vitamin D 25-OH since low levels have been reported to be associated with falls. 55 minutes spent including detailed motor exam. Thank you for an interesting consultation on this pleasant early 60s male.
[2018-09-16] MEDS: LOVENOX SUB-Q SCH (22:05)
[2018-09-16] MEDS: ULTRAM PO PRN (22:10)
[2018-09-17] MEDS: TESSALON PERLES PO SCH ×3 (06:43→22:19)
[2018-09-17] MEDS: ULTRAM PO PRN ×3 (06:43→22:27)
[2018-09-17 07:34] LABS: Chol/HDL Ratio 3.86 %
--- NOTE | 2018-09-17 10:50 | Magnetic Resonance Report ---
MRI OF THE BRAIN WITHOUT CONTRAST: HISTORY: Stroke PROCEDURE: Multiplanar, multisequence MR imaging of the brain without IV contrast was performed. FINDINGS: Compared to the CT head dated 09/16/18. MRI demonstrates at least 3 small areas of diffusion restriction in the right cerebral hemisphere. A 1.3 cm focus of diffusion restriction is identified in the anterior right parietal lobe which appears to involve the postcentral gyrus. A 1.0 cm focus of diffusion restriction is identified in the posterior right frontal lobe. A 2.3 x 1.5 cm area of diffusion restriction is identified in the right posterior watershed region. There is no evidence for hemorrhage, mass, mass effect or extra-axial fluid collection. Minimal nonspecific chronic white matter changes are identified. No evidence for chronic infarct. The midline structures are central. The basal cisterns are patent. Normal ventricular size. Normal flow voids are identified in the [place] of [place] and posterior fossa. The orbital cavities and sella turcica demonstrate no abnormality. Minimal mucosal thickening is noted throughout all paranasal sinuses. The mastoid air cells are well-aerated. IMPRESSION: 3 relatively small areas of subacute ischemia are identified as described above. These appear to be within the right MCA distribution. No evidence for hemorrhage or mass effect. Minimal nonspecific chronic white matter changes.
--- NOTE | 2018-09-17 10:52 | Magnetic Resonance Report ---
MRA HEAD WITHOUT CONTRAST HISTORY: Stroke. [id number] imaging with MIP reformations of the [place] of [place] is submitted. The arteries appear widely patent and free of hemodynamically significant stenosis, aneurysm or dissection. A large right posterior communicating artery is identified. IMPRESSION: Unremarkable MRA head.
[2018-09-17] MEDS: DELTASONE PO SCH (11:16)
[2018-09-17] MEDS: BABY ASPIRIN PO SCH (11:16)
[2018-09-17] MEDS: PLAVIX PO SCH (11:16)
--- NOTE | 2018-09-17 14:49 | Progress Note ---
Assessment and Plan - Patient Problems (1) CVA (cerebral vascular accident) Current Visit: Yes Status: Acute Qualifiers: Precerebral and cerebral artery: middle cerebral artery Laterality of affected vessel: right Plan to address problem: Stroke Protocol: IMPRESSION: 3 relatively small areas of subacute ischemia are identified as described above. These appear to be within the right MCA distribution. No evidence for hemorrhage or mass effect. Minimal nonspecific chronic white matter changes. Able to walk Plavix 75 mg po qd initiated (2) HTN (hypertension) Current Visit: Yes Status: Acute Qualifiers: Hypertension type: essential hypertension Qualified Code(s): I10 - Essential (primary) hypertension Plan to address problem: Well controlled (3) Hypernatremia BMP pending (4) CAD (coronary artery disease) Current Visit: No Status: Chronic Qualifiers: Coronary Disease-Associated Artery/Lesion type: [place] coronary artery Plan to address problem: lipid panel, low cholesterol diet, risk factor reduction, (5) Obesity hypoventilation syndrome Current Visit: Yes Status: Acute Plan to address problem: supplemental oxygen, nebulizer therapy, NIPPV as clinically indicated, pulse oximetry, pulmonary toilet, early ambulation. (6) DVT prophylaxis Current Visit: Yes Status: Acute Plan to address problem: SCD to BLE while in bed, prophylactic lovenox Subjective Date of service: 09/17/18 Principal diagnosis: Acute CVA with L side weakness Interval history: 62 YO Male with HTN, CAD S/P Stent Placement on DAPT, Obesity, Nicotine Dependence, HLD, COPD presents to ED for Left arm weakness, and numbness since 945 am. 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 EMS notified, and upon arrival the patient was found to have a neurologic deficit. A code stroke was called and the patient transported to [facility]. Pt seen and evaluated in ED and found to have symptoms consistent with CVA. Teleneurology consulted, but patient deemed not to be a candidate for TPA. Pt admitted to telemetry and initiated on CVA protocol. Neurology consulted in ED. Pt denies fever, chills, CP, Palpitations, NVD, Trauma, BRBPR, productive cough, skin rash, vertigo, seizures, loss of bowel/bladder continence. Objective - Constitutional Vitals: Vital Signs - 12hr 09/17/18 09/17/18 09/17/18 04:06 06:43 07:43 Temperature 97.7 F Pulse Rate 73 Respiratory 18 18 18 Rate Blood Pressure 133/97 O2 Sat by Pulse 97 Oximetry 09/17/18 09/17/18 08:01 10:00 Temperature 98.2 F Pulse Rate 74 67 Respiratory 16 18 Rate Blood Pressure 150/90 O2 Sat by Pulse 96 Oximetry General appearance: Present: no acute distress, well-nourished - EENT Eyes: PERRL, EOM intact ENT: hearing intact, clear oral mucosa Ears: bilateral: normal - Neck Neck: supple, normal ROM - Respiratory Respiratory effort: normal Respiratory: bilateral: CTA - Breasts Breasts: normal - Cardiovascular Rhythm: regular Heart Sounds: Present: S1 & S2. Absent: gallop, rub Extremities: no ischemia, pulses intact, No edema, normal color, Full ROM - Gastrointestinal General gastrointestinal: Present: soft, non-tender, non-distended, normal bowel sounds - Genitourinary Male genitourinary: normal - Integumentary Integumentary: clear, warm, dry - Musculoskeletal Musculoskeletal: left sided weakness (4+/5 in both LUE and LLE) - Neurologic Neurologic: moves all extremities - Psychiatric Psychiatric: memory intact, appropriate mood/affect, intact judgment & insight - Allied health notes Allied health notes reviewed: nursing, case management - Labs CBC & Chem 7: 09/16/18 12:42 09/16/18 12:42 Labs: Abnormal lab results 09/17/18 Range/Units 05:52 Triglycerides 192 H (2-149) mg/dL HDL Cholesterol 29 L (40-59) mg/dL
--- NOTE | 2018-09-17 18:24 | Cat Scan Report ---
PROCEDURE: CT ANGIO NECK TECHNIQUE: CT angiogram neck without contrast HISTORY: embolic strokes right brain COMPARISONS: Correlated with prior MRA head MRI as well as noncontrast CT carotid ultrasound of September 16, 2018 FINDINGS: Origin of the great vessels is unremarkable. There is normal appearance of the common carotid arterie s bilaterally. Normal appearance of the internal carotid with no evidence for stenosis or occlusion. Both vertebral arteries are identified and are unremarkable. No evidence for stenosis occlusion or di ssection IMPRESSION: Normal CTA neck. This document is electronically signed by Tra Muhammad MD., September 17 2018 06:22:49 PM ET
--- NOTE | 2018-09-17 20:40 | Progress Note ---
Subjective Date of service: 09/17/18 Principal diagnosis: Acute CVA with L side weakness Interval history: HPI: He says his left hand is better. Did not examine him but showed him images of the embolic strokes from his MRI. I told him recovery is often more rapid when the strokes are small, as his are. I explained the reason for the echo with bubbles to look for an embolic source, the need for 30 day event monitoring as an outpatient to look for paroxysmal atrial fibrillation which could cause clots that the echo would miss once clot has gone upstream to cause strokes. I also explained the reasons for the CT angiogram and neck to look for any carotid disease that could have led to the strokes instead of a cardiac source. Signing off, call for any unexpected imaging findings and make sure he gets referred for 30 day event monitoring as outpatient. Objective - Vital Sign Vital Signs - 12hr 09/17/18 09/17/18 09/17/18 10:00 14:54 19:35 Temperature 97.9 F 98.2 F Pulse Rate 67 64 Respiratory 18 16 18 Rate Blood Pressure 162/91 141/98 O2 Sat by Pulse 98 Oximetry 09/17/18 20:00 Temperature Pulse Rate 78 Respiratory Rate Blood Pressure O2 Sat by Pulse 99 Oximetry - Laboratory Findings CBC and BMP: 09/16/18 12:42 09/16/18 12:42 Abnormal Lab Findings: Abnormal Labs 09/16/18 09/16/18 09/17/18 12:42 12:42 05:52 RDW 15.9 H Lymph % (Auto) 37.6 H Sodium 146 H BUN 5 L Triglycerides 192 H HDL Cholesterol 29 L
[2018-09-17] MEDS: LOVENOX SUB-Q SCH (22:19)
[2018-09-18] MEDS: TESSALON PERLES PO SCH ×2 (06:01→14:54)
[2018-09-18] MEDS: ULTRAM PO PRN (06:01)
[2018-09-18 07:13] LABS: BUN/Creatinine Ratio 8; Blood Urea Nitrogen 6 mg/dL (9-20); Calcium 8.8 mg/dL (8.4-10.2); Hemolysis Index 4
[2018-09-18] MEDS: DELTASONE PO SCH (10:30)
[2018-09-18] MEDS: BABY ASPIRIN PO SCH (10:30)
[2018-09-18] MEDS: PLAVIX PO SCH (10:30)
--- NOTE | 2018-09-18 14:56 | Vascular Lab Report ---
PROCEDURE: VL CAROTID DUPLEX BILAT TECHNIQUE: Carotid duplex Doppler ultrasound. Grayscale, color flow and spectral waveform images wer e obtained. HISTORY: stroke COMPARISON: None FINDINGS: There is a mild amount of plaque seen bilaterally. There is no abnormal elevation in flow velocity. I CA/CCA ratios are normal, 0.81 on the right and 0.90 on the left. Findings indicate no evidence of an y hemodynamically significant stenosis. Specifically findings indicate stenosis of less than 50%. Hipolito tebral artery flow is antegrade bilaterally. IMPRESSION: No evidence of any hemodynamically significant stenosis. This document is electronically signed by Olamide Bernal MD., September 18 2018 02:54:08 PM ET
--- NOTE | 2018-09-18 16:12 | Discharge Summary ---
Providers - Providers Date of Admission: 09/16/18 13:53 Date of discharge: 09/18/18 Attending physician: CHRISTIAN JOHNSON 09/16/18 Consult to Physician [CONS] Routine Comment: Consulting Provider: MICHAEL SANCHEZ Physician Instructions: Reason For Exam: cva 09/16/18 13:53 Occupational Therapy Evaluate and Treat [CONS] Routine Comment: Reason For Exam: Neuro deficits Physical Therapy Evaluation and Treat [CONS] Routine Comment: Reason For Exam: Neuro deficits Primary care physician: PADDY BOWEN Hospitalization Condition: Stable Pertinent studies: EcHo --20- 25 percent EF Dilated LV MRI/MRA IMPRESSION: 3 relatively small areas of subacute ischemia are identified as described above. These appear to be within the right MCA distribution. No evidence for hemorrhage or mass effect. Minimal nonspecific chronic white matter changes. Hospital course: (1) CVA (cerebral vascular accident) Current Visit: Yes Status: Acute Qualifiers: Precerebral and cerebral artery: middle cerebral artery Laterality of affected vessel: right Plan to address problem: Stroke Protocol: IMPRESSION: 3 relatively small areas of subacute ischemia are identified as described above. These appear to be within the right MCA distribution. No evidence for hemorrhage or mass effect. Minimal nonspecific chronic white matter changes. Echo with bubbles to look for an embolic source, the need for 30 day event monitoring as an outpatient to look for paroxysmal atrial fibrillation which could cause clots that the echo would miss once clot has gone upstream to cause strokes---w/u as outpatient Able to walk Plavix 75 mg po qd initiated (2) HTN (hypertension) Current Visit: Yes Status: Acute Qualifiers: Hypertension type: essential hypertension Qualified Code(s): I10 - Essential (primary) hypertension Plan to address problem: Well controlled (3) Hypernatremia BMP pending (4) CAD (coronary artery disease) Current Visit: No Status: Chronic Qualifiers: Coronary Disease-Associated Artery/Lesion type: [place] coronary artery Plan to address problem: lipid panel, low cholesterol diet, risk factor reduction, (5) Obesity hypoventilation syndrome Current Visit: Yes Status: Acute Plan to address problem: supplemental oxygen, nebulizer therapy, NIPPV as clinically indicated, pulse oximetry, pulmonary toilet, early ambulation (6)CHF . Diuretics -Lasix once a day Disposition: TO HOME OR SELFCARE Core Measure Documentation - Palliative Care Palliative Care/ Comfort Measures: Not Applicable - Core Measures Any of the following diagnoses?: stroke - Stroke Discharge Requirements Statin for LDL = or >70 mg/dl on DC: Yes Anticoag for atrial fib/atrial flutter: Not Applicable Antithrombotic for ischemic stroke: Yes Exam - Constitutional Vitals: Temp Pulse Resp BP Pulse Ox 97.9 F 63 22 143/91 98 09/18/18 11:21 09/18/18 11:21 09/18/18 11:21 09/18/18 11:21 09/18/18 11:21 General appearance: Present: no acute distress, well-nourished - EENT Eyes: Present: PERRL ENT: hearing intact, clear oral mucosa - Neck Neck: Present: supple, normal ROM - Respiratory Respiratory effort: normal Respiratory: bilateral: CTA - Cardiovascular Heart rate: 78 Rhythm: regular Heart Sounds: Present: S1 & S2. Absent: rub, click - Extremities Extremities: no ischemia, pulses intact, pulses symmetrical, No edema Peripheral Pulses: within normal limits - Abdominal General gastrointestinal: Present: soft, non-tender, non-distended, normal bowel sounds Male genitourinary: Present: normal - Integumentary Integumentary: Present: clear, warm, dry - Musculoskeletal Musculoskeletal: gait normal, strength equal bilaterally - Psychiatric Psychiatric: appropriate mood/affect, intact judgment & insight, cooperative - Neurologic Neurologic: CNII-XII intact, moves all extremities, gait normal (No focal deficits) Plan Activity: no restrictions Diet: low fat, low cholesterol, low salt Follow up with: PADDY BOWEN MD [Primary Care Provider] - 3-5 Days
[2018-09-18 18:19] VITALS: BP 140/87
[2018-09-19 11:27] LABS: Vitamin D, 25-OH, D2 <4 ng/mL
== END 2018-09-18 18:29 | disposition home or self-care (01) | DRG 65 ==
LOC: ED 11:51 → 4A 13:53 → 3A 09-18 11:07
PROVIDERS: ADMIT Internal Medicine; ATTEND Internal Medicine
DX: I63.511 Cerebral infarction due to unspecified occlusion or stenosis of right middle cerebral artery (principal); E87.0 Hyperosmolality and hypernatremia; E66.2 Morbid (severe) obesity with alveolar hypoventilation; I25.10 Atherosclerotic heart disease of native coronary artery without angina pectoris; E66.9 Obesity, unspecified; J44.9 Chronic obstructive pulmonary disease, unspecified; I25.2 Old myocardial infarction; M19.90 Unspecified osteoarthritis, unspecified site; F17.210 Nicotine dependence, cigarettes, uncomplicated; E78.5 Hyperlipidemia, unspecified; I50.9 Heart failure, unspecified; I11.0 Hypertensive heart disease with heart failure; Z95.5 Presence of coronary angioplasty implant and graft; Z79.82 Long term (current) use of aspirin; Z96.653 Presence of artificial knee joint, bilateral; Z68.31 Body mass index [BMI] 31.0-31.9, adult
CPT/HCPCS: 36415; 70450; 70498; 70544; 70551; 80048; 80061; 82306; 82962; 84484; 85025; 85610; 85670; 85730; 93005; 93010; 93306; 93880; 99406; G0378; A9270-GY; J1650; J7512; Q9967

== ENCOUNTER 2018-12-27 23:29 | Inpatient (IN) | payer MEDICAID, OTHER ==
[2018-12-27] MEDS ORDERED: ASPIRIN 325 MG TAB PO ONE (23:46)
[2018-12-28 00:43] LABS: Basophils # (Auto) 0.1 K/mm3 (0.0-0.1); Basophils % (Auto) 0.7 % (0.0-1.8); Eosinophils # (Auto) 0.4 K/mm3 (0.0-0.4); Eosinophils % (Auto) 4.6 % (0.0-4.3); Hematocrit 42.4 % (35.5-45.6); Hemoglobin 14.1 gm/dl (11.8-15.2); Lymphocytes # (Auto) 3.3 K/mm3 (1.2-5.4); Lymphocytes % (Auto) 35.6 % (13.4-35.0); Mean Corpuscular HGB Conc 33 % (32-34); Mean Corpuscular Volume 86 fl (84-94); Monocytes # (Auto) 0.8 K/mm3 (0.0-0.8); Monocytes % (Auto) 8.5 % (0.0-7.3); Platelet Count 240 K/mm3 (140-440); Red Blood Count 4.91 M/mm3 (3.65-5.03); Red Cell Distribution Width 15.4 % (13.2-15.2)
[2018-12-28 01:00] LABS: BUN/Creatinine Ratio 9; Blood Urea Nitrogen 6 mg/dL (9-20); Calcium 9.1 mg/dL (8.4-10.2); Hemolysis Index 4
[2018-12-28] MEDS ORDERED: POTASSIUM CHLORIDE ER 20 MEQ TAB PO ONE (01:03)
--- NOTE | 2018-12-28 01:25 | Emergency Department Report ---
ED Chest Pain HPI - General Chief Complaint: Chest Pain Stated Complaint: VEGAS/CP/NECK/BILATERAL SHOULDER PAIN Time Seen by Provider: 12/28/18 01:02 Source: patient Mode of arrival: Ambulatory Limitations: No Limitations - History of Present Illness Initial Comments: 63-year-old -I[place] male presents to the emergency department from home with 2 main complaints. First, the patient has a right-sided throbbing headache that has been going on since about 1 PM. He denies any vision change, slurred speech or any neurological deficits. He does have a history of previous CVA without any residual deficits. Secondly, the patient complains of some midsternal to left-sided chest pain that started at about the same time, around 1 PM in the afternoon. He also has a past nuchal history of COPD, hypertension, coronary artery disease with previous DC and one cardiac stent in place. He has not taken anything for any of his symptoms prior to arrival. He is a tobacco smoker and admits to some crack cocaine use a few days ago. The patient also ad mits to drinking a few beers this evening. No recent travel or sick contacts at home. His primary care physician is Dr. Josh Bose and he says his ham passer is a Dr. Montero. The patient was here in August for a stroke workup and had an echocardiogram that showed moderate to severely dilated left ventricle with an EF of 20-25%. He also had a stress test done in September 2016 that showed evidence of previous DC. - Related Data Previous Rx's Medication Instructions Recorded Last Taken Type Aspirin [Aspirin BABY CHEW TAB] 81 mg PO QDAY #100 tab.chew 09/18/18 Unknown Rx AtorvaSTATin [Lipitor] 40 mg PO QHS #30 tablet 09/18/18 Unknown Rx Clopidogrel [Plavix] 75 mg PO QDAY 30 Days #30 tablet 09/18/18 Unknown Rx Allergies Allergy/AdvReac Type Severity Reaction Status Date / Time No Known Allergies Allergy Verified 09/16/18 12:19 Heart Score - HEART Score History: Moderately suspicious EKG: Normal Age: 45-65 Risk factors: > 3 risk factors or hx of atherosclerotic disease Troponin: < normal limit HEART Score: 4 - Critical Actions Critical Actions: 4-6 pts:12-16.6% risk of adverse cardiac event. Should be admitted ED Review of Systems ROS: Stated complaint: VEGAS/CP/NECK/BILATERAL SHOULDER PAIN Other details as noted in HPI Comment: All other systems reviewed and negative Constitutional: denies: chills, fever Eyes: denies: eye pain, vision change ENT: denies: ear pain, throat pain Respiratory: denies: cough, shortness of breath Cardiovascular: chest pain. denies: edema Gastrointestinal: denies: abdominal pain, vomiting Genitourinary: denies: dysuria, discharge Musculoskeletal: denies: back pain, arthralgia Skin: denies: rash, lesions Neurological: headache. denies: weakness ED Past Medical Hx - Past Medical History Previous Medical History?: Yes Hx Hypertension: Yes Hx CVA: Yes Hx Heart Attack/AMI: Yes Hx Congestive Heart Failure: No Hx Diabetes: No Hx Arthritis: Yes Hx Asthma: No Hx COPD: Yes Additional medical history: "sepsis" 09/2014 - Surgical History Past Surgical History?: Yes Hx Coronary Stent: Yes (1 stent) Additional Surgical History: Peptic Ulcer surgery. 2 Knee surgeries - Social History Smoking Status: Current Every Day Smoker Substance Use Type: Alcohol, Cocaine - Medications Home Medications: Home Medications Medication Instructions Recorded Confirmed Last Taken Type Aspirin [Aspirin BABY CHEW TAB] 81 mg PO QDAY #100 tab.chew 09/18/18 12/28/18 Unknown Rx AtorvaSTATin [Lipitor] 40 mg PO QHS #30 tablet 09/18/18 12/28/18 Unknown Rx Clopidogrel [Plavix] 75 mg PO QDAY 30 Days #30 tablet 09/18/18 12/28/18 Unknown Rx ED Physical Exam - General Limitations: No Limitations - Other Other exam information: GENERAL: The patient is well-developed well-nourished. HENT: Normocephalic. Atraumatic. Patient has moist mucous membranes. EYES: Extraocular motions are intact. Pupils equal reactive to light bilaterally. NECK: Supple. Trachea is midline. CHEST/LUNGS: Clear to auscultation. There is no respiratory distress noted. HEART/CARDIOVASCULAR: Regular. There is no tachycardia. There is no murmur. ABDOMEN: Abdomen is soft, nontender. Patient has normal bowel sounds. There is no abdominal distention. SKIN: Skin is warm and dry. NEURO: Patient is sleepy but is easily arousable and then is oriented. The patient is cooperative. The patient has no focal neurologic deficits. Normal speech. Cranial nerves II through XII grossly intact. No pronator drift. No dysmetria. MUSCULOSKELETAL: There is no tenderness or deformity. There is no evidence of acute injury. ED Course Vital Signs 12/27/18 12/28/18 12/28/18 23:33 01:32 02:00 Temperature 97.7 F 98 F Pulse Rate 96 H 83 82 Respiratory 18 16 18 Rate Blood Pressure 141/89 143/91 Blood Pressure 141/92 [Left] O2 Sat by Pulse 95 97 88 Oximetry 12/28/18 03:00 Temperature Pulse Rate 83 Respiratory 20 Rate Blood Pressure 136/92 Blood Pressure [Left] O2 Sat by Pulse 93 Oximetry VINNY score - Vinny Score Age > 65: (0) No Aspirin use within the Past 7 Days: (1) Yes 3 or more CAD Risk Factors: (1) Yes 2 or more Angina events in past 24 hrs: (1) Yes Known CAD with more than 50% Stenosis: (1) Yes Elevated Cardiac Markers: (0) No ST Deviation Greater than 0.5mm: (0) No VINNY Score: 4 ED Medical Decision Making - Lab Data Result diagrams: 12/27/18 23:54 12/27/18 23:54 - EKG Data -: EKG Interpreted by Me EKG shows normal: sinus rhythm, axis, intervals, QRS complexes, ST-T waves Rate: normal - EKG Data When compared to previous EKG there are: no significant change Interpretation: unchanged when compared t (09/16/18) - Radiology Data Radiology results: report reviewed, image reviewed interpreted by me: Chest x-ray does not show any acute process. There are no pleural effusions, obvious pneumonia and there is no pneumothorax. CT BRAIN: 12/28/2018 INDICATION / CLINICAL INFORMATION: Headache. COMPARISON: 09/16/2018 FINDINGS: BRAIN/INTRACRANIAL STRUCTURES: Unenhanced CT images of the brain demonstrate no evidence of acute intracranial abnormality. Ventricles and sulci are normal in size and shape for a patient of this age. There is no evidence of hemorrhage or mass. There are no abnormal extra-axial fluid collections. Mild chronic appearing white matter hypoattenuation is present in the right parietal lobe, unchanged when compared to the prior exam. EXTRACRANIAL STRUCTURES: Unremarkable. IMPRESSION: No acute abnormality. No change when compared to 09/16/2018. CTA CHEST WITH IV CONTRAST INDICATION / CLINICAL INFORMATION: CP, elevated dimer. TECHNIQUE: Axial CT images were obtained through the chest after injection of 100 mL Omnipaque 350 IV contrast. 3 plane MIP and/or 3D reconstruc tions were produced. All CT scans at this location are performed using CT dose reduction for ALARA by means of automated exposure control. COMPARISON: None available. FINDINGS: PULMONARY ARTERIES: No pulmonary emboli. THORACIC AORTA: No significant abnormality. HEART: No significant abnormality. CORONARY ARTERIES: Probable coronary stent noted in the LAD. PLEURA: No pleural effusion. No pneumothorax. LYMPH NODES: No significant adenopathy. LUNGS: No acute air space or interstitial disease. Paraseptal and centrilobular emphysema. There is a 1.5 cm circumscribed pulmonary nodule in the right lower lobe with a small peripheral ca lcification noted (series 2, image 87). ADDITIONAL FINDINGS: Gyne comastia. UPPER ABDOMEN: No acute findings. SKELETAL STRUCTURES: No significant osseous abnormality. IMPRESSION: 1. No CT evidence for pulmonary embolism. 2. Emphysema. 3. A 1.5 cm circumscribed pulmonary nodule in the right lower lobe contains a small peripheral calcification suggesting a benign etiology. However, recommend follow-up chest CT in 3-6 months to ensure stability. - Medical Decision Making Patient presents to the emergency department with a complaint of headache and chest pain since yesterday afternoon. He does not appear to have any focal, motor or sensory deficits and cranial nerves are intact. CT of the head does not show any bleed, shift, mass, ischemia, or any other acute process. Labs have been mostly unremarkable except for a slightly elevated an equivocal d- dimer. For this reason, CT angiography of the chest was done that does not show any evidence of pulmonary embolism. There is an incidental pulmonary nodule found. It appears to open about 2 years since the patient last had a stress test. He has moderate VINNY and heart score. For these reasons, the patient be admitted to the hospital for further evaluation and treatment and was accepted for admission by the hospitalist, Dr. Boswell. - Differential Diagnosis DC, costochondritis, PE, subarachnoid, migraine Critical Care Time: No Critical care attestation.: If time is entered above; I have spent that time in minutes in the direct care of this critically ill patient, excluding procedure time. ED Disposition Clinical Impression: Acute chest pain, History of coronary artery disease, Incidental pulmonary nodule Headache Qualifiers: Headache type: unspecified Headache chronicity pattern: unspecified pattern Intractability: not intractable Qualified Code(s): R51 - Headache Disposition: DC-09 OP ADMIT IP TO THIS HOSP Is pt being admited?: Yes Condition: Fair Instructions: Chest Pain (ED) Referrals: TRUONG CANNON MD [Primary Care Provider] - 3-5 Days Time of Disposition: 04:20
--- NOTE | 2018-12-28 01:32 | XRay Report ---
CHEST 1 VIEW INDICATION / CLINICAL INFORMATION: Chest Pain. COMPARISON: Chest radiograph 05/16/2016 FINDINGS: SUPPORT DEVICES: None. HEART / MEDIASTINUM: No significant abnormality. LUNGS / PLEURA: No significant pulmonary or pleural abnormality. No pneumothorax. ADDITIONAL FINDINGS: No significant additional findings. IMPRESSION: 1. No acute findings. Signer Name: Naima Srteet MD Signed: 12/28/2018 1:27 AM Workstation Name: [id number]
--- NOTE | 2018-12-28 01:59 | Cat Scan Report ---
CT BRAIN: 12/28/2018 INDICATION / CLINICAL INFORMATION: Headache. COMPARISON: 09/16/2018 FINDINGS: BRAIN/INTRACRANIAL STRUCTURES: Unenhanced CT images of the brain demonstrate no evidence of acute int racranial abnormality. Ventricles and sulci are normal in size and shape for a patient of this age. There is no evidence of hemorrhage or mass. There are no abnormal extra-axial fluid collections. Mild chronic appearing white matter hypoattenuation is present in the right parietal lobe, unchanged when compared to the prior exam. EXTRACRANIAL STRUCTURES: Unremarkable. IMPRESSION: No acute abnormality. No change when compared to 09/16/2018. All CT scans at this location are performed using dose reduction to ALARA by means of automated expos ure control. Signer Name: Winston Lake MD Signed: 12/28/2018 1:54 AM Workstation Name: [id number]
--- NOTE | 2018-12-28 03:36 | Cat Scan Report ---
CTA CHEST WITH IV CONTRAST INDICATION / CLINICAL INFORMATION: CP, elevated dimer. TECHNIQUE: Axial CT images were obtained through the chest after injection of 100 mL Omnipaque 350 IV contrast. 3 plane MIP and/or 3D reconstructions were produced. All CT scans at this location are performed usin g CT dose reduction for MELBARA by means of automated exposure control. COMPARISON: None available. FINDINGS: PULMONARY ARTERIES: No pulmonary emboli. THORACIC AORTA: No significant abnormality. HEART: No significant abnormality. CORONARY ARTERIES: Probable coronary stent noted in the LAD. PLEURA: No pleural effusion. No pneumothorax. LYMPH NODES: No significant adenopathy. LUNGS: No acute air space or interstitial disease. Paraseptal and centrilobular emphysema. There is a 1.5 cm circumscribed pulmonary nodule in the right lower lobe with a small peripheral calcification noted (series 2, image 87). ADDITIONAL FINDINGS: Gynecomastia. UPPER ABDOMEN: No acute findings. SKELETAL STRUCTURES: No significant osseous abnormality. IMPRESSION: 1. No CT evidence for pulmonary embolism. 2. Emphysema. 3. A 1.5 cm circumscribed pulmonary nodule in the right lower lobe contains a small peripheral calcif ication suggesting a benign etiology. However, recommend follow-up chest CT in 3-6 months to ensure s tability. Signer Name: Naima Street MD Signed: 12/28/2018 3:32 AM Workstation Name: [id number]
[2018-12-28 03:43] LABS: Amphetamine Screen,Urine PRESUMPTIVE NEGATIVE; Benzodiazepines Screen,Urine PRESUMPTIVE NEGATIVE; Cannabinoid Screen,Urine PRESUMPTIVE NEGATIVE; Methadone Screen,Urine PRESUMPTIVE NEGATIVE; Opiate Screen,Urine PRESUMPTIVE NEGATIVE
[2018-12-28] MEDS ORDERED: ASPIRIN 325 MG TAB ONE (03:55)
[2018-12-28 04:01] LABS: Cocaine Screen,Urine PRESUMPTIVE POSITIVE
[2018-12-28] MEDS ORDERED: ACETAMINOPHEN 325 MG TAB PO PRN (04:41)
[2018-12-28] MEDS ORDERED: ONDANSETRON 4 MG/2 ML INJ IV PRN (04:41)
[2018-12-28] MEDS ORDERED: MORPHINE 2 MG/1 ML INJ IV PRN (04:41)
--- NOTE | 2018-12-28 04:45 | History and Physical Report ---
History of Present Illness Date of examination: 12/28/18 History of present illness: 63 -year-old man with a history of hypertension, coronary artery disease, CVA, COPD comes emergency room with complaints of chest pain that started Saturday. Pain is in the left chest which she described as a pressure-like sensation, in termittent every 5-10 minutes, intensity follow 10, radiating to the left shoulder, can't identify exacerbating factor. Admits to nausea, shortness breath, no diaphoresis or palpitation. He had a stress test in August which she said was okay eview Of Systems: Constitutional: no weight loss, fever, chills Ears, eyes, nose, mouth and throat: no nasal congestion, no nasal discharge, no sinus pressure, blurry vision, diplopia Neck: No neck pain or rigidity. Cardiovascular: No palpitations Respiratory: No cough Gastrointestinal: No hematochezia, abdominal pain Genitourinary : no dysuria, frequency , hematuria Musculoskeletal: no muscle ache , joint pain Integumentary: no rash, no pruritis Neurological: no parathesias, focal weakness Endocrine: no cold or heat intolerance, no polyuria or polydipsia Hematologic/Lymphatic: no easy bruising, no easy bleeding, no gland swelling Allergic/Immunologic: no urticaria, no angioedema. PAST MEDICAL HISTORY:hypertension, coronary artery disease, CVA, COPD PAST SURGICAL HISTORY: Surgery for peptic ulcer, knee replacement FAMILY HISTORY:hypertension, diabetes SOCIAL HISTORY: 2 packs a day, no drugs urine positive for cocaine, drink 4 beers a day Medications and Allergies Allergies Allergy/AdvReac Type Severity Reaction Status Date / Time No Known Allergies Allergy Verified 09/16/18 12:19 Home Medications Medication Instructions Recorded Confirmed Last Taken Type Aspirin [Aspirin BABY CHEW TAB] 81 mg PO QDAY #100 tab.chew 09/18/18 12/28/18 Unknown Rx AtorvaSTATin [Lipitor] 40 mg PO QHS #30 tablet 09/18/18 12/28/18 Unknown Rx Clopidogrel [Plavix] 75 mg PO QDAY 30 Days #30 tablet 09/18/18 12/28/18 Unknown Rx Active Meds: Active Medications Acetaminophen (Tylenol) 650 mg PO Q4H PRN PRN Reason: Pain MILD(1-3)/Fever >100.5/VEGAS Aspirin (Aspirin) 325 mg PO QDAY CAR Enoxaparin Sodium (Lovenox) 30 mg SUB-Q QDAY CAR Morphine Sulfate (Morphine) 2 mg IV Q4H PRN PRN Reason: Pain, Moderate (4-6) Ondansetron HCl (Zofran) 4 mg IV Q8H PRN PRN Reason: Nausea And Vomiting Sodium Chloride (Sodium Chloride Flush Syringe 10 Ml) 10 ml IV BID CAR Sodium Chloride (Sodium Chloride Flush Syringe 10 Ml) 10 ml IV PRN PRN PRN Reason: LINE FLUSH Exam - Physical Exam Narrative exam: General Apperance: The patient sitting in bed no acute distress HEENT: Normocephalic, atraumatic. Pupils equally round and reactive to light, extraocular movement intact, and no sclericterus or JVD or thyromegaly or nodule. Neck supple, no carotid bruit, mucous membranes moist, no exudate or erythema Heart: S1-S2, regular is rhythm Lungs: Clear to auscultation bilaterally, breathing comfortable Abdomen: Positive bowel sounds, soft, nontender, nondistended, no organomegaly Extremities: No edema cyanosis clubbing Skin: no rash, nodule, warm and dry Neuro:CN 2 -12 intact, motor/sensory intact, speech is fluent - Constitutional Vitals: Temp Pulse Resp BP Pulse Ox 98 F 82 15 137/91 92 12/28/18 01:32 12/28/18 04:00 12/28/18 04:00 12/28/18 04:00 12/28/18 04:00 Results - Labs CBC & Chem 7: 12/27/18 23:54 12/27/18 23:54 Labs: Abnormal lab results 12/27/18 12/27/18 12/28/18 Range/Units 23:54 23:54 01:17 RDW 15.4 H (13.2-15.2) % Lymph % (Auto) 35.6 H (13.4-35.0) % [place] % (Auto) 8.5 H (0.0-7.3) % Eos % (Auto) 4.6 H (0.0-4.3) % D-Dimer 315.25 H (0-234) ng/mlDDU Potassium 3.1 L (3.6-5.0) mmol/L BUN 6 L (9-20) mg/dL Creatinine 0.7 L (0.8-1.5) mg/dL Glucose 109 H (75-100) mg/dL - Imaging and Cardiology EKG: image reviewed Chest x-ray: report reviewed CT scan - chest: report reviewed CT Scan - head: report reviewed Assessment and Plan Assessment Chest pain Coronary artery disease Hypertension COPD Hyperlipidemia History of stroke Plan Admit to medicine Check cardiac enzymes, consult cardiology Start aspirin, IV morphine, DVT prophylaxis
[2018-12-28] MEDS ORDERED: ACETAMINOPHEN 325 MG TAB ONE (05:51)
[2018-12-28] MEDS: ASPIRIN 325 MG TAB PO SCH (11:10)
[2018-12-28] MEDS: ENOXAPARIN 40 MG/0.4 ML INJ SUB-Q SCH (11:10)
[2018-12-28] MEDS ORDERED: PNEUMOCOCCAL 23 Valent 0.5 ML VIAL IM ONE (12:00)
[2018-12-28] MEDS ORDERED: FLU VACC QUAD 2019-20 (3 YR UP)/PF 60 MCG/0.5 ML SYRINGE IM ONE (12:00)
--- NOTE | 2018-12-28 15:54 | Consultation ---
History of Present Illness Consult date: 12/28/18 Consult reason: chest pain History of present illness: Impression Atypical chest pain, 3 sets of trop neg x 3 CMP out of proportion to CAD Cath 2016 single vessel 50-60% LAD disease Echo 08/2018 EF 20-25%, severe LV dysfunction HTN CVA COPD Plan he is feeling better today continue medical therapy today, he states he had recent stress but no record here. will perform lexiscan MPI in AM. Past History Past Medical History: CAD, COPD, heart failure, hypertension, hyperlipidemia, other (cardiomyopathy) Medications and Allergies Allergies Allergy/AdvReac Type Severity Reaction Status Date / Time No Known Allergies Allergy Verified 09/16/18 12:19 Home Medications Medication Instructions Recorded Confirmed Last Taken Type Aspirin [Aspirin BABY CHEW TAB] 81 mg PO QDAY #100 tab.chew 09/18/18 12/28/18 Unknown Rx AtorvaSTATin [Lipitor] 40 mg PO QHS #30 tablet 09/18/18 12/28/18 Unknown Rx Clopidogrel [Plavix] 75 mg PO QDAY 30 Days #30 tablet 09/18/18 12/28/18 Unknown Rx Active Meds: Active Medications Acetaminophen (Tylenol) 650 mg PO Q4H PRN PRN Reason: Pain MILD(1-3)/Fever >100.5/VEGAS Last Admin: 12/28/18 05:40 Dose: 650 mg Documented by: Aspirin (Aspirin) 325 mg PO QDAY [facility] Last Admin: 12/28/18 11:10 Dose: 325 mg Documented by: Enoxaparin Sodium (Lovenox) 40 mg SUB-Q QDAY [facility] Last Admin: 12/28/18 11:10 Dose: 40 mg Documented by: Morphine Sulfate (Morphine) 2 mg IV Q4H PRN PRN Reason: Pain, Moderate (4-6) Ondansetron HCl (Zofran) 4 mg IV Q8H PRN PRN Reason: Nausea And Vomiting Sodium Chloride (Sodium Chloride Flush Syringe 10 Ml) 10 ml IV BID [facility] Last Admin: 12/28/18 11:10 Dose: 10 ml Documented by: Sodium Chloride (Sodium Chloride Flush Syringe 10 Ml) 10 ml IV PRN PRN PRN Reason: LINE FLUSH Review of Systems All systems: negative (stated in impression) Physical Examination Vital Signs Temp Pulse Resp BP Pulse Ox 97.7 F 96 H 18 141/89 95 12/27/18 23:33 10/05/19 23:33 12/27/18 23:33 12/27/18 23:33 12/27/18 23:33 General appearance: no acute distress HEENT: Positive: PERRL, EOMI Neck: Positive: neck supple Cardiac: Positive: Reg Rate and Rhythm, S1/S2 Lungs: Positive: clear to auscultation Abdomen: Positive: Soft Results 12/27/18 23:54 12/27/18 23:54 CBC 12/27/18 Range/Units 23:54 WBC 9.3 (4.5-11.0) K/mm3 RBC 4.91 (3.65-5.03) M/mm3 Hgb 14.1 (11.8-15.2) gm/dl Hct 42.4 (35.5-45.6) % Plt Count 240 (140-440) K/mm3 Lymph # 3.3 (1.2-5.4) K/mm3 [place] # 0.8 (0.0-0.8) K/mm3 Eos # 0.4 (0.0-0.4) K/mm3 Baso # 0.1 (0.0-0.1) K/mm3 Comprehensive Metabolic Panel 12/27/18 Range/Units 23:54 Sodium 139 (137-145) mmol/L Potassium 3.1 L (3.6-5.0) mmol/L Chloride 101.4 (98-107) mmol/L Carbon Dioxide 23 (22-30) mmol/L BUN 6 L (9-20) mg/dL Creatinine 0.7 L (0.8-1.5) mg/dL Glucose 109 H (75-100) mg/dL Calcium 9.1 (8.4-10.2) mg/dL
[2018-12-29 08:05] LABS: Basophils # (Auto) 0.1 K/mm3 (0.0-0.1); Eosinophils # (Auto) 0.2 K/mm3 (0.0-0.4); Eosinophils % (Auto) 3.7 % (0.0-4.3); Hematocrit 41.5 % (35.5-45.6); Hemoglobin 13.6 gm/dl (11.8-15.2); Lymphocytes # (Auto) 2.2 K/mm3 (1.2-5.4); Lymphocytes % (Auto) 34.5 % (13.4-35.0); Mean Corpuscular HGB Conc 33 % (32-34); Mean Corpuscular Volume 87 fl (84-94); Monocytes # (Auto) 0.5 K/mm3 (0.0-0.8); Monocytes % (Auto) 7.9 % (0.0-7.3); Platelet Count 223 K/mm3 (140-440); Red Blood Count 4.76 M/mm3 (3.65-5.03); Red Cell Distribution Width 15.1 % (13.2-15.2)
--- NOTE | 2018-12-29 08:18 | Discharge Summary ---
Providers - Providers Date of Admission: 12/28/18 05:20 Attending physician: TAMMI PATEL MD 12/28/18 04:41 Consult to Physician [CONS] Routine Comment: Consulting Provider: CALIN LEZAMA Physician Instructions: Reason For Exam: cp Primary care physician: [facility] MD ABDULAZIZ Hospitalization Condition: Fair Hospital course: 63-year-old man who presented to the hospital with chest pain. He was admitted to the hospital, ACS was ruled out. He went on to have a Lexiscan stress test which showed? Diagnosis Chest pain Crack cocaine abuse Tobacco abuse/dependence Chronic systolic CHF, EF 20% Disposition: DC-01 TO HOME OR SELFCARE Time spent for discharge: 35 minutes Core Measure Documentation - Palliative Care Palliative Care/ Comfort Measures: Not Applicable - Core Measures Any of the following diagnoses?: heart failure - Heart Failure Discharge Requirements MAXINE/ARB for LVSD if EF <40%: Yes Beta hebert at discharge: No Reason for no beta hebert on DC: Medical contraindication Exam - Constitutional Vitals: Temp Pulse Resp BP Pulse Ox 98.6 F 76 18 135/93 94 12/28/18 23:46 12/28/18 23:46 12/28/18 23:46 12/28/18 23:46 12/28/18 23:46 General appearance: Present: no acute distress, well-nourished - EENT Eyes: Present: PERRL ENT: hearing intact, clear oral mucosa - Neck Neck: Present: supple, normal ROM - Respiratory Respiratory effort: normal Respiratory: bilateral: CTA - Cardiovascular Heart Sounds: Present: S1 & S2. Absent: rub, click - Extremities Extremities: pulses symmetrical, No edema Peripheral Pulses: within normal limits - Abdominal General gastrointestinal: Present: soft, non-tender, non-distended, normal bowel sounds Male genitourinary: Present: normal - Integumentary Integumentary: Present: clear, warm, dry - Musculoskeletal Musculoskeletal: gait normal, strength equal bilaterally - Psychiatric Psychiatric: appropriate mood/affect, intact judgment & insight - Neurologic Neurologic: CNII-XII intact, moves all extremities Plan Follow up with: TRUONG CANNON MD [Primary Care Provider] - 3-5 Days Prescriptions: AtorvaSTATin [Lipitor] 40 mg PO QHS #30 tablet Aspirin [Aspirin BABY CHEW TAB] 81 mg PO QDAY #100 tab.chew Clopidogrel [Plavix] 75 mg PO QDAY 30 Days #30 tablet
[2018-12-29] MEDS ORDERED: REGADENOSON 0.4 MG/5 ML INJ IV ONE ×2 (08:51→09:02)
[2018-12-29 10:20] LABS: BUN/Creatinine Ratio 9; Blood Urea Nitrogen 7 mg/dL (9-20); Hemolysis Index 6
[2018-12-29] MEDS: ASPIRIN 325 MG TAB PO SCH (11:39)
[2018-12-29] MEDS: ENOXAPARIN 40 MG/0.4 ML INJ SUB-Q SCH (11:39)
--- NOTE | 2018-12-29 13:30 | Progress Note ---
Assessment and Plan Assessment and plan: 63-year-old man who presented to the hospital with chest pain. He was admitted to the hospital, ACS was ruled out. He was planned for Lexiscan stress test ,, however the stress lab cameras down today. Will be rescheduled for tomorrow. Preventative health counseling performed for 17 minutes Counseled about cessation of crack cocaine Tobacco abuse/dependence Smoking cessation counseling performed for 10 minutes, nicotine patches when necessary Diagnosis Chest pain, Suspect that chest pain is likely due to cocaine toxicity Crack cocaine abuse Tobacco abuse/dependence Chronic systolic CHF, EF 20% History Interval history: Review of systems Constitutional: No fevers, no malaise, no joint pains CVS: No chest pain, no orthopnea, no pedal edema GI: No abdominal pain, no diarrhea, no vomiting, no constipation Respiratory: No shortness of breath, no wheezing, no coughing Hospitalist Physical - Physical exam Narrative exam: General.: Appears well, no distress, nontoxic HEENT: Moist mucous membranes, extraocular muscles intact, no lymphadenopathy Neck: supple Cardiac: S1-S2 heard Lungs: clear to auscultation bilaterally Abdomen: soft , nontender, nondistended, bowel sounds positive Extremities: no edema clubbing or cyanosis Skin: no rash or lesions Neurologic: no gross focal deficits Psych: calm, and cooperative - Constitutional Vitals: Temp Pulse Resp BP Pulse Ox 98.6 F 76 18 146/94 99 12/29/18 08:29 12/29/18 08:51 12/29/18 08:51 12/29/18 10:02 12/29/18 08:51 General appearance: Present: no acute distress Results - Labs CBC & Chem 7: 12/29/18 07:48 12/29/18 07:48 Labs: Laboratory Last Values WBC 6.5 K/mm3 (4.5-11.0) 12/29/18 07:48 RBC 4.76 M/mm3 (3.65-5.03) 12/29/18 07:48 Hgb 13.6 gm/dl (11.8-15.2) 12/29/18 07:48 Hct 41.5 % (35.5-45.6) 12/29/18 07:48 MCV 87 fl (84-94) 12/29/18 07:48 MCH 29 pg (28-32) 12/29/18 07:48 MCHC 33 % (32-34) 12/29/18 07:48 RDW 15.1 % (13.2-15.2) 12/29/18 07:48 Plt Count 223 K/mm3 (140-440) 12/29/18 07:48 Lymph % (Auto) 34.5 % (13.4-35.0) 12/29/18 07:48 [place] % (Auto) 7.9 % (0.0-7.3) H 12/29/18 07:48 Eos % (Auto) 3.7 % (0.0-4.3) 12/29/18 07:48 Baso % (Auto) 1.0 % (0.0-1.8) 12/29/18 07:48 Lymph # 2.2 K/mm3 (1.2-5.4) 12/29/18 07:48 Mobile # 0.5 K/mm3 (0.0-0.8) 12/29/18 07:48 Eos # 0.2 K/mm3 (0.0-0.4) 12/29/18 07:48 Baso # 0.1 K/mm3 (0.0-0.1) 12/29/18 07:48 Seg Neutrophils % 52.9 % (40.0-70.0) 12/29/18 07:48 Seg Neutrophils # 3.4 K/mm3 (1.8-7.7) 12/29/18 07:48 D-Dimer 315.25 ng/mlDDU (0-234) H 12/28/18 01:17 Sodium 143 mmol/L (137-145) 12/29/18 07:48 Potassium 3.7 mmol/L (3.6-5.0) 12/29/18 07:48 Chloride 105.9 mmol/L (98-107) 12/29/18 07:48 Carbon Dioxide 27 mmol/L (22-30) 12/29/18 07:48 Anion Gap 14 mmol/L 12/29/18 07:48 BUN 7 mg/dL (9-20) L 12/29/18 07:48 Creatinine 0.8 mg/dL (0.8-1.5) 12/29/18 07:48 Estimated GFR > 60 ml/min 12/29/18 07:48 BUN/Creatinine Ratio 9 % 12/29/18 07:48 Glucose 100 mg/dL (75-100) 12/29/18 07:48 Calcium 9.0 mg/dL (8.4-10.2) 12/29/18 07:48 Ammonia 43.0 umol/L (25-60) 12/28/18 01:17 Troponin T < 0.010 ng/mL (0.00-0.029) 12/28/18 05:45 TSH 0.968 mlU/mL (0.270-4.200) 12/28/18 01:17 Urine Opiates Screen Presumptive negative 12/28/18 02:54 Urine Methadone Screen Presumptive negative 12/28/18 02:54 Ur Barbiturates Screen Presumptive negative 12/28/18 02:54 Ur Phencyclidine Scrn Presumptive negative 12/28/18 02:54 Ur Amphetamines Screen Presumptive negative 12/28/18 02:54 U Benzodiazepines Scrn Presumptive negative 12/28/18 02:54 Urine Cocaine Screen Presumptive positive 12/28/18 02:54 U Marijuana (THC) Screen Presumptive negative 12/28/18 02:54 Drugs of Abuse Note Disclamer 12/28/18 02:54 Plasma/Serum Alcohol < 0.01 % (0-0.07) 12/28/18 01:14 Active Medications - Current Medications Current Medications: Generic Name Dose Route Start Last Admin Trade Name Freq PRN Reason Stop Dose Admin Acetaminophen 650 mg 12/28/18 04:41 12/28/18 05:40 Tylenol PO 650 mg Q4H PRN Administration Pain MILD(1-3)/Fever >100.5/VEGAS Aspirin 325 mg 12/28/18 10:00 12/29/18 11:39 Aspirin PO 325 mg QDAY CAR Administration Enoxaparin Sodium 40 mg 12/28/18 10:00 12/29/18 11:39 Lovenox SUB-Q 40 mg QDAY CAR Administration Morphine Sulfate 2 mg 12/28/18 04:41 12/29/18 08:07 Morphine IV 2 mg Q4H PRN Administration Pain, Moderate (4-6) Ondansetron HCl 4 mg 12/28/18 04:41 Zofran IV Q8H PRN Nausea And Vomiting Sodium Chloride 10 ml 12/28/18 10:00 12/29/18 11:40 Sodium Chloride Flush Syringe 10 Ml IV 10 ml BID CAR Administration Sodium Chloride 10 ml 12/28/18 04:41 Sodium Chloride Flush Syringe 10 Ml IV PRN PRN LINE FLUSH
[2018-12-29] MEDS ORDERED: BUTALB/ACETAMINOPHEN/CAFFEINE TAB PO PRN (16:23)
--- NOTE | 2018-12-29 17:12 | Progress Note ---
Assessment and Plan - Patient Problems (1) History of coronary artery disease Current Visit: Yes Status: Acute Plan to address problem: The patient presented with chest pain, negative cardiac enzymes. A history of coronary artery disease and prior remote coronary stenting is documented. His ECGs here do show Q waves in the inferior wall and anterior buck, suggestive of multivessel coronary artery disease. Unfortunately, the stress perfusion study could not be completed today due to equipment malfunction. Stress test will be rescheduled for tomorrow morning. Based on patient's high pretest likelihood of recurrent disease, he may eventually need invasive coronary assessment. Subjective Date of service: 12/29/18 Interval history: The patient is comfortable, no further chest pain. He completed a resting Lexiscan stress test, but distress study could not be completed due to equipment malfunction. His serial ECGs show evidence of multivessel coronary disease, with prior infarcts in the inferior and anterior buck. Objective Vital Signs Temp Pulse Pulse Pulse Pulse Resp BP 12/29/18 16:24 97.5 F L 79 19 148/100 12/29/18 12:42 98.0 F 69 18 133/79 12/29/18 10:02 146/94 12/29/18 10:00 65 155/95 12/29/18 09:58 147/94 12/29/18 09:56 124/89 12/29/18 09:54 134/82 12/29/18 09:52 132/91 12/29/18 09:50 135/97 12/29/18 09:48 136/93 12/29/18 09:45 135/84 12/29/18 09:11 133/95 12/29/18 08:51 76 76 76 18 12/29/18 08:29 98.6 F 62 18 132/85 12/29/18 08:06 12/29/18 03:55 98.5 F 71 18 136/80 12/28/18 23:46 98.6 F 76 18 135/93 12/28/18 22:00 18 12/28/18 20:59 98.7 F 63 20 136/84 12/28/18 19:59 Pulse Ox 12/29/18 16:24 95 12/29/18 12:42 95 12/29/18 10:02 12/29/18 10:00 12/29/18 09:58 12/29/18 09:56 12/29/18 09:54 12/29/18 09:52 12/29/18 09:50 12/29/18 09:48 12/29/18 09:45 12/29/18 09:11 12/29/18 08:51 99 12/29/18 08:29 96 12/29/18 08:06 95 12/29/18 03:55 94 12/28/18 23:46 94 12/28/18 22:00 12/28/18 20:59 94 12/28/18 19:59 96 - Physical Examination General: No Apparent Distress HEENT: Positive: PERRL, EOMI Neck: Positive: neck supple Cardiac: Positive: Reg Rate and Rhythm Lungs: Positive: Decreased Breath Sounds Neuro: Positive: Grossly Intact Abdomen: Positive: Soft Skin: Positive: Clear Extremities: Absent: edema - Labs and Meds CBC 12/29/18 Range/Units 07:48 WBC 6.5 (4.5-11.0) K/mm3 RBC 4.76 (3.65-5.03) M/mm3 Hgb 13.6 (11.8-15.2) gm/dl Hct 41.5 (35.5-45.6) % Plt Count 223 (140-440) K/mm3 Lymph # 2.2 (1.2-5.4) K/mm3 [place] # 0.5 (0.0-0.8) K/mm3 Eos # 0.2 (0.0-0.4) K/mm3 Baso # 0.1 (0.0-0.1) K/mm3 Comprehensive Metabolic Panel 12/29/18 Range/Units 07:48 Sodium 143 (137-145) mmol/L Potassium 3.7 (3.6-5.0) mmol/L Chloride 105.9 (98-107) mmol/L Carbon Dioxide 27 (22-30) mmol/L BUN 7 L (9-20) mg/dL Creatinine 0.8 (0.8-1.5) mg/dL Glucose 100 (75-100) mg/dL Calcium 9.0 (8.4-10.2) mg/dL - Imaging and Cardiology EKG: image reviewed
[2018-12-29] MEDS: atenoloL 25 MG TAB PO SCH (18:08)
[2018-12-29] MEDS: LISINOPRIL 10 MG TAB PO SCH (18:08)
--- NOTE | 2018-12-29 18:50 | Consultation ---
History of Present Illness Consult date: 12/29/18 Reason for Consult: Headache Chief complaint: Headache, right face paresthesia History of present illness: Patient is 63-year-old man with a history of hypertension, COPD, CAD, hyperlipidemia, history of TIA, h/o cocaine abuse. Patient presented on Saturday evening with complaints of chest pain and a right sided headache. He states that the headache had been ongoing intermittently for the past 2 weeks, and at its worst was 9 out of 10, throbbing, associated with mild blurriness of vision in the right eye. Patient states that he's been having headaches off and on since August 2018. Patient also states that he used cocaine within the last week. He states that the headache on the right oral region also radiates to the right side of the neck. He denies any recent head or neck trauma. Past History Past Medical History: CAD, COPD, heart failure, hypertension, hyperlipidemia, other (cardiomyopathy) Social history: smoking, other (cocaine abuse) Family history: no significant family history Medications and Allergies Allergies Allergy/AdvReac Type Severity Reaction Status Date / Time No Known Allergies Allergy Verified 09/16/18 12:19 Home Medications Medication Instructions Recorded Confirmed Last Taken Type Aspirin [Aspirin BABY CHEW TAB] 81 mg PO QDAY #100 tab.chew 12/29/18 Unknown Rx AtorvaSTATin [Lipitor] 40 mg PO QHS #30 tablet 12/29/18 Unknown Rx Clopidogrel [Plavix] 75 mg PO QDAY 30 Days #30 tablet 12/29/18 Unknown Rx Lisinopril [Zestril TAB] 10 mg PO QDAY #30 tablet 12/29/18 Unknown Rx Active Meds: Active Medications Acetaminophen (Tylenol) 650 mg PO Q4H PRN PRN Reason: Pain MILD(1-3)/Fever >100.5/VEGAS Last Admin: 12/28/18 05:40 Dose: 650 mg Documented by: Acetaminophen/Butalbital/Caffeine (Fioricet) 2 tab PO Q4H PRN PRN Reason: Headache Aspirin (Aspirin) 325 mg PO QDAY [facility] Last Admin: 12/29/18 11:39 Dose: 325 mg Documented by: Atenolol (Tenormin) 25 mg PO QDAY [facility] Last Admin: 12/29/18 18:08 Dose: 25 mg Documented by: Enoxaparin Sodium (Lovenox) 40 mg SUB-Q QDAY [facility] Last Admin: 12/29/18 11:39 Dose: 40 mg Documented by: Isosorbide Mononitrate (Imdur) 30 mg PO QDAY [facility] Last Admin: 12/29/18 18:06 Dose: 30 mg Documented by: Lisinopril (Zestril) 10 mg PO QDAY [facility] Last Admin: 12/29/18 18:08 Dose: 10 mg Documented by: Morphine Sulfate (Morphine) 2 mg IV Q4H PRN PRN Reason: Pain, Moderate (4-6) Last Admin: 12/29/18 08:07 Dose: 2 mg Documented by: Ondansetron HCl (Zofran) 4 mg IV Q8H PRN PRN Reason: Nausea And Vomiting Sodium Chloride (Sodium Chloride Flush Syringe 10 Ml) 10 ml IV BID [facility] Last Admin: 12/29/18 11:40 Dose: 10 ml Documented by: Sodium Chloride (Sodium Chloride Flush Syringe 10 Ml) 10 ml IV PRN PRN PRN Reason: LINE FLUSH Review of Systems All systems: negative Eyes: right: blurred vision Cardiovascular: chest pain Neurological: parathesias Physical Examination - Vital Signs Vital Signs: Vital Signs Temp Pulse Resp BP Pulse Ox 97.7 F 96 H 18 141/89 95 12/27/18 23:33 12/27/18 23:33 12/27/18 23:33 12/27/18 23:33 12/27/18 23:33 - Physical Exam Narrative exam: Patient is alert, awake, oriented 4, follows complex commands. Pupils equal round reactive to light, visual rodríguez full, no facial weakness noted, decreased sensation to light touch on the right side of the face, notably has mild blurred vision in the right eye when the left eye is covered. Significant tenderness noted in the right temporal region. Sensation bilaterally intact to light touch in all extremities. Motor strength 5/5 in all extremities. 2+ reflexes throughout. Bilaterally intact [id number] and [id number]. - Constitutional General appearance: comfortable - EENT EENT: Present: ATNC, PERRL, mucous membranes moist - Respiratory Respiratory: Present: lungs clear, normal breath sounds - Cardiovascular Cardiovascular: Present: regular rate, normal S1, normal S2 Extremities: Present: no clubbing, cyanosis, no inflammation - Gastrointestinal Gastrointestinal: Present: normoactive bowel sounds, soft, non-tender - Integumentary Integumentary: Present: normal - Musculoskeletal Musculoskeletal: Present: no fluid collection, normal range of motion - Psychiatric Psychiatric: Present: mood/affect appropriate Results - Laboratory Findings CBC and BMP: 12/29/18 07:48 12/29/18 07:48 Abnormal Lab Findings: Abnormal Labs 12/27/18 12/27/18 12/28/18 23:54 23:54 01:17 RDW 15.4 H Lymph % (Auto) 35.6 H [place] % (Auto) 8.5 H Eos % (Auto) 4.6 H D-Dimer 315.25 H Potassium 3.1 L BUN 6 L Creatinine 0.7 L Glucose 109 H 12/29/18 12/29/18 07:48 07:48 RDW Lymph % (Auto) [place] % (Auto) 7.9 H Eos % (Auto) D-Dimer Potassium BUN 7 L Creatinine Glucose Assessment and Plan Patient is 63-year-old man with a history of hypertension, COPD, CAD, hyperlipidemia, history of TIA, h/o cocaine abuse, who p/w VEGAS and chest pain. According to the patient's clinical findings, it is possible that the patient has giant cell arteritis. To support this differential diagnosis, the patient has had intermittent right temporal headaches, and has notable tenderness in the right temporal region. He also complains of mild blurriness of vision in the right eye for the past 2 weeks. Alternatively, the patient may have a trigemin al autonomic cephalgia. Plan: 1. Headache: - Check ESR. If significantly elevated, high suspicion for GCA, and may need to start patient on steroids. - Check MRI brain as patient has new RUE paresthesias - Check CTA head/neck, as patient has Rt. neck pain. Rule out dissection. - Cont. fioricet for now. -Will continue to monitor patient's neurologic status 2. Chest pain: - Cont. management per primary team/cardiology. Thank you for allowing me to take part in the care of this patient. Pavan Rodriguez MD Neurology
--- NOTE | 2018-12-29 23:26 | Cat Scan Report ---
CTA neck without and with intravenous contrast material CLINICAL HISTORY: right arm numbness, rule out dissection TECHNIQUE: Following acquisition of a timing bolus 0.63 mm thick contiguous axial scans were obtained from aorti c arch to the skull base during rapid bolus intravenous contrast infusion. In addition to evaluation of axial source images multiplanar reconstructions were produced and reviewed for this report. 3 plan e MIP reconstructions were produced and reviewed. LIMITATIONS: Patient motion artifact degrades image quality at the level of the thyroid gland limiting evaluation of short segments of both common carotid arteries. FINDINGS: No abnormalities are seen at the origins of the great vessels. Common carotid arteries, carotid bifurcations and cervical portions of the internal carotid arteries all have a normal appearance. There is no indication of hemodynamically significant stenosis. There i s no indication of carotid dissection. Normal and symmetrical vertebral arteries are present. There is no indication of stenosis along the c ourse of the vertebral arteries. Both vertebral arteries contribute to the basilar artery origin. The basilar artery has an unremarkable appearance. The degree of stenosis, if any, is determined utilizing NASCET like criteria. In this case there is no indication of hemodynamically significant stenosis. Evaluation of the nonvascular soft tissue structures reveal no abnormality. There is no indication of cervical lymphadenopathy. No abnormalities are seen along the course of the airway. Visualized porti ons of the parotid glands and the submandibular salivary glands have a normal appearance. No focal le sions are seen on evaluation of the thyroid gland.. Evaluation of the lung apices reveals no evidence of lung nodule or infiltrate. Evaluation of the cervical spine is remarkable for widespread facet arthropathy without evidence of s ignificant neuroforaminal stenosis or central canal stenosis.. IMPRESSION: 1. No indication of hemodynamically significant stenosis at the carotid bifurcations or elsewhere. Contrast dose report: Omnipaque 350: 100 ml, administered intravenously Radiation dose report: series 200: CTDI: mGy series 2: mGy All CT examinations performed at this facility utilize modulated dose reduction, iterative reconstruc tion or weight-based dosing, as appropriate, to obtain a radiation dose which is as low as can reason ably be achieved. Signer Name: Tomas Mir MD Signed: 12/29/2018 11:21 PM Workstation Name: [id number]
--- NOTE | 2018-12-29 23:33 | Cat Scan Report ---
CTA head with intravenous contrast CLINICAL HISTORY: right arm numbness, rule out dissection TECHNIQUE: 0.625 mm thick contiguous axial scans were obtained from the skull base to the skull vertex during ra pid bolus administration of intravenous contrast material. Multiplanar reconstructions were produced in the coronal and sagittal planes. In addition 3 plane MIP instructions were produced and reviewed f or this report. The axial source images and reconstructed images were reviewed for this report. All CT scans at this location are performed using CT dose reduction for ALARA by means of automated e xposure control. FINDINGS: The caliber of the intracranial vessels is normal throughout. There is no indication of intracranial stenosis or large vessel occlusion. Calcified atherosclerotic plaque is seen along the course of the cavernous segments of both internal carotid arteries without associated hemodynamically significant s tenosis. 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 There is no indication of v asculitis. There is no evidence of aneurysm or other vascular malformation. IMPRESSION: 1. No evidence of intracranial stenosis or large vessel occlusion. 2. 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 CONTRAST DOSE REPORT: Omnipaque 350: 100 ml administered intravenously. Signer Name: Tomas Mir MD Signed: 12/29/2018 11:28 PM Workstation Name: [id number]
[2018-12-30] MEDS ORDERED: REGADENOSON 0.4 MG/5 ML INJ IV ONE ×2 (10:03→10:07)
--- NOTE | 2018-12-30 13:56 | Magnetic Resonance Report ---
MRI BRAIN WITHOUT CONTRAST INDICATION / CLINICAL INFORMATION: right arm numbness. Headache TECHNIQUE: Multisequence, multiplanar images were obtained. COMPARISON: MR brain dated 09/17/2018. CT head dated 12/28/2018. FINDINGS: CEREBRAL and CEREBELLAR HEMISPHERES: No evidence for diffusion restriction/acute ischemia. The previo usly described 3 focal areas of diffusion restriction in the right-sided MCA distribution have resolv ed. Minimal nonspecific chronic white matter changes are again noted. No acute hemorrhage. Focal c hronic cortical encephalomalacia in the right posterior watershed region has developed system with ch ronic infarct. No extra-axial fluid collection. VENTRICLES: Normal in size and configuration for age. VISUALIZED ORBITS: Significant abnormality. VISUALIZED PARANASAL SINUSES: Minimal mucosal thickening throughout all paranasal sinuses is stable. The mastoid air cells are clear. ADDITIONAL FINDINGS: None. IMPRESSION: No acute intracranial abnormality is identified. Minimal chronic white matter changes. Chronic focal infarct in the right posterior watershed region. Signer Name: Nicholas St Jr, MD Signed: 12/30/2018 1:51 PM Workstation Name: [id number]
[2018-12-30] MEDS: ASPIRIN 325 MG TAB PO SCH (14:16)
[2018-12-30] MEDS: ENOXAPARIN 40 MG/0.4 ML INJ SUB-Q SCH (14:16)
[2018-12-30] MEDS: LISINOPRIL 10 MG TAB PO SCH ×2 (14:17→14:20)
[2018-12-30] MEDS: atenoloL 25 MG TAB PO SCH (14:18)
--- NOTE | 2018-12-30 14:22 | Event Note ---
Date: 12/30/18 Patient's thallium stress test was abnormal, ischemic cardiomyopathy and evidence of reversible inferior wall ischemia. We will recommend diagnostic cardiac angiography, scheduled for tomorrow morning.
--- NOTE | 2018-12-30 14:35 | Progress Note ---
Assessment and Plan Assessment and plan: Patient is a 63-year-old man with a history of tobacco dependency and cocaine abuse who presented to [facility] with chest pain. He was admitted to the hospital, ACS was ruled out. He was planned for Lexiscan stress test, however, the stress lab cameras was not working properly on 12/30/18. He was to be discharge but he had on-going chest pains and severe. right sided headaches. So, the stress test was done on Saturday and it was abnormal. The right sided head pains most likely is trigeminal neuralgia from right persistent trigeminal artery which is likely causing trigeminal neuralgia, patient should be referred to endovascular neurosurgery at [place] as outpatient for further management; picked up on CTA head/neck. Chest pain, on going with positive stress test: [facility] tomorrow, Cardiology. Crack cocaine abuse: school adjustment counselor done Tobacco dependence: counseling done Chronic systolic CHF, EF 20% Right sided headache, most likely trigeminal neuralgia: d/w Neurology, to start treatment and patient will need to go to outpatient [place] [facility] for the anatomical anomaly. DVT ppx on sq lovenox History Interval history: Patient was seen and examined. Follow-up on current diagnosis of Chest pains which re-occurs intermittently and right sided headaches. No overnight events reported to me. Patient denies any chest pain, shortness breath, nausea/vomiting. Imaging, nursing note, chart, labs and old chart reviewed. Discussed with patient. Hospitalist Physical - Physical exam Narrative exam: Gen: WDWN, NAD, Awake, Alert, Orientated HEENT: NCAT, EOMI, PERRL, OP Clear, right druze area tenderness Neck: supple, no adenopathy, no thyromegaly, no JVD CVS/Heart: RRR, normal S1S2, pulses present bilaterally Chest/Lungs: CTA B, Symmetrical chest expansion, good air entry bilaterally GI/Abdomen: soft, NTND, good bowel sounds, no guarding or rebound /Bladder: no suprapubic tenderness, no CVA or paraspinal tenderness Extermity/Skin: no c/c/e, no obvious rash MSK: FROM x 4 Neuro: CN 2-12 grossly intact except trigeminal sensory, no new focal deficits Psych: calm - Constitutional Vitals: Temp Pulse Resp BP Pulse Ox 97.8 F 70 18 129/88 98 12/30/18 08:30 12/30/18 14:18 12/30/18 08:30 12/30/18 14:18 12/30/18 08:30 General appearance: Present: no acute distress Results - Labs CBC & Chem 7: 12/29/18 07:48 12/31/18 04:15 Labs: Laboratory Last Values WBC 6.5 K/mm3 (4.5-11.0) 12/29/18 07:48 RBC 4.76 M/mm3 (3.65-5.03) 12/29/18 07:48 Hgb 13.6 gm/dl (11.8-15.2) 12/29/18 07:48 Hct 41.5 % (35.5-45.6) 12/29/18 07:48 MCV 87 fl (84-94) 12/29/18 07:48 MCH 29 pg (28-32) 12/29/18 07:48 MCHC 33 % (32-34) 12/29/18 07:48 RDW 15.1 % (13.2-15.2) 12/29/18 07:48 Plt Count 223 K/mm3 (140-440) 12/29/18 07:48 Lymph % (Auto) 34.5 % (13.4-35.0) 12/29/18 07:48 [place] % (Auto) 7.9 % (0.0-7.3) H 12/29/18 07:48 Eos % (Auto) 3.7 % (0.0-4.3) 12/29/18 07:48 Baso % (Auto) 1.0 % (0.0-1.8) 12/29/18 07:48 Lymph # 2.2 K/mm3 (1.2-5.4) 12/29/18 07:48 [place] # 0.5 K/mm3 (0.0-0.8) 12/29/18 07:48 Eos # 0.2 K/mm3 (0.0-0.4) 12/29/18 07:48 Baso # 0.1 K/mm3 (0.0-0.1) 12/29/18 07:48 Seg Neutrophils % 52.9 % (40.0-70.0) 12/29/18 07:48 Seg Neutrophils # 3.4 K/mm3 (1.8-7.7) 12/29/18 07:48 ESR 3 mm/Hr (0-20) 12/29/18 19:29 D-Dimer 315.25 ng/mlDDU (0-234) H 12/28/18 01:17 Sodium 143 mmol/L (137-145) 12/29/18 07:48 Potassium 3.7 mmol/L (3.6-5.0) 12/29/18 07:48 Chloride 105.9 mmol/L (98-107) 12/29/18 07:48 Carbon Dioxide 27 mmol/L (22-30) 12/29/18 07:48 Anion Gap 14 mmol/L 12/29/18 07:48 BUN 7 mg/dL (9-20) L 12/29/18 07:48 Creatinine 0.8 mg/dL (0.8-1.5) 12/29/18 07:48 Estimated GFR > 60 ml/min 12/29/18 07:48 BUN/Creatinine Ratio 9 % 12/29/18 07:48 Glucose 100 mg/dL (75-100) 12/29/18 07:48 Calcium 9.0 mg/dL (8.4-10.2) 12/29/18 07:48 Ammonia 43.0 umol/L (25-60) 12/28/18 01:17 Troponin T < 0.010 ng/mL (0.00-0.029) 12/28/18 05:45 C-Reactive Protein 0.10 mg/dL (0.00-1.30) 12/29/18 19:29 TSH 0.968 mlU/mL (0.270-4.200) 12/28/18 01:17 Urine Opiates Screen Presumptive negative 12/28/18 02:54 Urine Methadone Screen Presumptive negative 12/28/18 02:54 Ur Barbiturates Screen Presumptive negative 12/28/18 02:54 Ur Phencyclidine Scrn Presumptive negative 12/28/18 02:54 Ur Amphetamines Screen Presumptive negative 12/28/18 02:54 U Benzodiazepines Scrn Presumptive negative 12/28/18 02:54 Urine Cocaine Screen Presumptive positive 12/28/18 02:54 U Marijuana (THC) Screen Presumptive negative 12/28/18 02:54 Drugs of Abuse Note Disclamer 12/28/18 02:54 Plasma/Serum Alcohol < 0.01 % (0-0.07) 12/28/18 01:14 Active Medications - Current Medications Current Medications: Generic Name Dose Route Start Last Admin Trade Name Freq PRN Reason Stop Dose Admin Acetaminophen 650 mg 12/28/18 04:41 12/28/18 05:40 Tylenol PO 650 mg Q4H PRN Administration Pain MILD(1-3)/Fever >100.5/VEGAS Acetaminophen/Butalbital/Caffeine 2 tab 12/29/18 16:23 Fioricet PO Q4H PRN Headache Aspirin 325 mg 12/28/18 10:00 12/30/18 14:16 Aspirin PO 325 mg QDAY CAR Administration Atenolol 25 mg 12/29/18 18:00 12/30/18 14:18 Tenormin PO 25 mg QDAY CAR Administration Enoxaparin Sodium 40 mg 12/28/18 10:00 12/30/18 14:16 Lovenox SUB-Q 40 mg QDAY CAR Administration Isosorbide Mononitrate 30 mg 12/29/18 18:00 12/30/18 14:16 Imdur PO 30 mg QDAY CAR Administration Lisinopril 10 mg 12/29/18 18:00 12/30/18 14:20 Zestril PO Not Given QDAY CAR Morphine Sulfate 2 mg 12/28/18 04:41 12/29/18 08:07 Morphine IV 2 mg Q4H PRN Administration Pain, Moderate (4-6) Ondansetron HCl 4 mg 12/28/18 04:41 Zofran IV Q8H PRN Nausea And Vomiting Sodium Chloride 10 ml 12/28/18 10:00 12/29/18 23:19 Sodium Chloride Flush Syringe 10 Ml IV 10 ml BID CAR Administration Sodium Chloride 10 ml 12/28/18 04:41 Sodium Chloride Flush Syringe 10 Ml IV PRN PRN LINE FLUSH
--- NOTE | 2018-12-30 16:32 | Progress Note ---
Assessment and Plan Patient is 63-year-old man with a history of hypertension, COPD, CAD, hyperlipidemia, history of TIA, h/o cocaine abuse, who p/w VEGAS and chest pain. According to the patient's clinical findings, it is possible that the patient has trigeminal neuralgia. To support this diagnosis, the patient notably has a persistent right trigeminal artery noted on CTA head and neck. The patient also has tenderness over the right temporal region, and also has normal ESR and CRP. Therefore, it is less likely to be giant cell arteritis. Plan: 1. Headache: Likely trigeminal neuralgia. -CTA head and neck revealed persistent temporal artery on the right. - MRI brain unremarkable. -ESR and CRP normal. -Will start patient on carbamazepine 100 mg twice a day. -Will continue to monitor patient's neurologic status - As patient has right persistent trigeminal artery which is likely causing trigeminal neuralgia, patient should be referred to endovascular neurosurgery at [place] as outpatient for further management. 2. Chest pain: - Cont. management per primary team/cardiology. Thank you for allowing me to take part in the care of this patient. Pavan Rodriguez MD Neurology Subjective Date of service: 12/30/18 Principal diagnosis: Trigeminal neuralgia Interval history: No acute events overnight. Headache improved today Objective - Exam Narrative Exam: Patient is alert, awake, oriented 4, follows complex commands. Pupils equal round reactive to light, visual rodríguez full, no facial weakness noted, decreased sensation to light touch on the right side of the face, notably has mild blurred vision in the right eye when the left eye is covered. Significant tenderness noted in the right temporal region. Sensation bilaterally intact to light touch in all extremities. Motor strength 5/5 in all extremities. 2+ reflexes throughout. Bilaterally intact [id number] and [id number]. - Vital Sign Vital Signs - 12hr 12/30/18 12/30/18 12/30/18 04:44 07:00 08:30 Temperature 98.4 F 97.8 F Pulse Rate 63 68 64 Respiratory 16 18 Rate Blood Pressure 102/58 111/72 O2 Sat by Pulse 97 98 Oximetry 12/30/18 12/30/18 12/30/18 10:57 11:04 11:05 Temperature Pulse Rate Respiratory Rate Blood Pressure 122/84 123/87 127/90 O2 Sat by Pulse Oximetry 12/30/18 12/30/1819 11:07 11:09 11:11 Temperature Pulse Rate Respiratory Rate Blood Pressure 131/86 121/85 129/88 O2 Sat by Pulse Oximetry 12/30/18 12/30/18 14:16 14:18 Temperature Pulse Rate 70 70 Respiratory Rate Blood Pressure 122/83 129/88 O2 Sat by Pulse Oximetry - General Apperance Constitutional: comfortable - EENT EENT: ATNC, PERRL, mucous membranes moist, hearing intact, vision intact - Respiratory Respiratory: lungs clear, normal breath sounds - Cardiovascular Cardiovascular: regular rate, normal S1, normal S2 Extremities: no clubbing, cyanosis, no inflammation - Gastrointestinal Gastrointestinal: normoactive bowel sounds, soft, non-tender - Integumentary Integumentary: normal - Musculoskeletal Musculoskeletal: no fluid collection - Psychiatric Psychiatric: mood/affect appropriate - Laboratory Findings CBC and BMP: 12/29/18 07:48 12/29/18 07:48 Abnormal Lab Findings: Abnormal Labs 12/27/18 12/27/18 12/28/18 23:54 23:54 01:17 RDW 15.4 H Lymph % (Auto) 35.6 H [place] % (Auto) 8.5 H Eos % (Auto) 4.6 H D-Dimer 315.25 H Potassium 3.1 L BUN 6 L Creatinine 0.7 L Glucose 109 H 12/29/18 12/29/18 07:48 07:48 RDW Lymph % (Auto) [place] % (Auto) 7.9 H Eos % (Auto) D-Dimer Potassium BUN 7 L Creatinine Glucose
[2018-12-30] MEDS: carBAMazepine 100 MG TAB CHEW PO SCH (22:07)
[2018-12-30] MEDS: guaiFENesin ER 600 MG TAB PO SCH (23:22)
--- NOTE | 2018-12-31 02:34 | Treadmill Report ---
THALLIUM STRESS TEST LEFT VENTRICLE: Left ventricle is moderately to severely dilated. There is a large fixed apical defect. There is another, large, predominantly fixed inferior wall defect. On the resting study, there is mild degree of reversibility inferiorly. Gated analysis demonstrates moderately severe left ventricular systolic dysfunction with ejection fraction 36%. CONCLUSION: Evidence of a dilated ischemic cardiomyopathy, multivessel coronary infarcts, and evidence of mild reversible periinfarct ischemia in the inferior wall. Clinical correlation is recommended. [facility]# [id number] CA/NTS
[2018-12-31 06:04] LABS: INR 0.94 (0.87-1.13)
[2018-12-31 06:34] LABS: BUN/Creatinine Ratio 11; Blood Urea Nitrogen 10 mg/dL (9-20); Calcium 8.8 mg/dL (8.4-10.2); Hemolysis Index 15
[2018-12-31] MEDS ORDERED: ASPIRIN 325 MG TAB ONE (07:47)
[2018-12-31] MEDS ORDERED: SODIUM CHLORIDE 0.9% 500 ML 500 ML ONE (07:48)
[2018-12-31] MEDS: ASPIRIN 325 MG TAB PO SCH ×2 (08:19→11:48)
[2018-12-31] MEDS ORDERED: SODIUM CHLORIDE 0.9% 500 ML 500 ML IV SCH (09:00)
[2018-12-31] MEDS ORDERED: fentaNYL 100 MCG/2 ML INJ ONE (09:04)
[2018-12-31] MEDS ORDERED: HEPARIN/NS 5000 UNIT/500ML 1,000 ML IR ONE (09:04)
[2018-12-31] MEDS ORDERED: MIDAZOLAM 2 MG/2 ML INJ ONE (09:04)
[2018-12-31] MEDS ORDERED: VERAPAMIL 5 MG/2 ML INJ ONE (09:05)
[2018-12-31] MEDS ORDERED: LIDOCAINE (2%) 20 MG/1 ML VIAL 20 ML MDV INFILTRATI ONE (09:05)
[2018-12-31] MEDS ORDERED: NITROGLYCERIN SYRINGE 3 ML ONE (09:05)
--- NOTE | 2018-12-31 09:41 | Progress Note ---
Assessment and Plan CAD s/p PCI - The patient presented with chest pain, negative cardiac enzymes ECGs here do show Q waves in the inferior wall and anterior buck, suggestive of multivessel coronary artery disease [facility] today Subjective Date of service: 12/31/18 Principal diagnosis: Trigeminal neuralgia Interval history: No acute events. Resting comfortably. No chest pain or SOB. Objective Vital Signs Temp Pulse Resp BP BP Pulse Ox 12/31/18 04:04 98.4 F 69 18 142/76 98 12/30/18 23:26 97.6 F 73 18 133/76 100 12/30/18 23:00 87 12/30/18 20:00 98.0 F 70 16 118/71 96 12/30/18 19:24 98.4 F 78 18 185/75 99 12/30/18 19:19 98.4 F 69 16 118/71 96 12/30/18 17:11 98.5 F 61 18 135/81 96 12/30/18 14:18 70 129/88 12/30/18 14:16 70 122/83 12/30/18 11:11 129/88 12/30/18 11:09 121/85 12/30/18 11:07 131/86 12/30/18 11:05 127/90 12/30/18 11:04 123/87 12/30/18 10:57 122/84 - Physical Examination General: No Apparent Distress HEENT: Positive: PERRL, EOMI Neck: Positive: neck supple Neuro: Positive: Grossly Intact Abdomen: Positive: Soft Skin: Positive: Clear Extremities: Absent: edema - Labs and Meds Coagulation 12/31/18 Range/Units 04:15 PT 12.3 (12.2-14.9) Sec. INR 0.94 (0.87-1.13) Comprehensive Metabolic Panel 12/31/18 Range/Units 04:15 Sodium 143 (137-145) mmol/L Potassium 3.5 L (3.6-5.0) mmol/L Chloride 104.9 (98-107) mmol/L Carbon Dioxide 26 (22-30) mmol/L BUN 10 (9-20) mg/dL Creatinine 0.9 (0.8-1.5) mg/dL Glucose 101 H (75-100) mg/dL Calcium 8.8 (8.4-10.2) mg/dL - Imaging and Cardiology EKG: image reviewed
[2018-12-31] MEDS ORDERED: guaiFENesin ER 600 MG TAB PO SCH (10:00)
[2018-12-31] MEDS: HEPARIN 10,000 UNITS/10 ML VIAL ONE ×2 (10:25→10:33)
[2018-12-31] MEDS ORDERED: HYDROcodone/ACETAMINOPHEN 5-325 MG TAB PO PRN (11:04)
[2018-12-31] MEDS: guaiFENesin ER 600 MG TAB PO SCH (11:46)
[2018-12-31] MEDS: carBAMazepine 100 MG TAB CHEW PO SCH (11:46)
[2018-12-31] MEDS: atenoloL 25 MG TAB PO SCH (11:46)
[2018-12-31] MEDS: ENOXAPARIN 40 MG/0.4 ML INJ SUB-Q SCH (11:47)
[2018-12-31] MEDS: LISINOPRIL 10 MG TAB PO SCH (11:47)
[2018-12-31] MEDS ORDERED: SODIUM CHLORIDE 0.9% 1000 ML 1,000 ML IV SCH (12:00)
--- NOTE | 2018-12-31 12:44 | Cardiac Catherization Report ---
ATTENDING PHYSICIAN: Joe Torres MD PROCEDURES: 1. Left heart catheterization. 2. IFR of the proximal LAD. COMPLICATIONS: None. ESTIMATED BLOOD LOSS: Less than 30 mL. ESTIMATED CONTRAST USE: 100 mL. SEDATION: With IV Versed and fentanyl. PROCEDURE IN DETAIL: The patient was brought to the cardiac catheterization lab in the usual fasting state. The patient was prepped and draped in the usual sterile fashion. A 2 mL of 1% lidocaine were injected around the right radial artery and a 6-Yoruba sheath was placed into the right radial artery via modified Seldinger technique. Next, a River catheter was advanced over the wire and engaged into the left main coronary ostia and angiography performed in multiple views. A catheter was then removed over the wire and a long JR4 catheter was advanced over the wire and engaged into the right coronary ostia and angiography was performed in multiple views. Next, JR4 guidewire was removed and an EBU 3.5 guide catheter was advanced over the wire and engaged into left main coronary artery. Next, a 0.014 IFR wire was advanced through the guide catheter to the ostium of the left main coronary artery. The wire was then normalized appropriately and advanced into the left anterior descending coronary artery just beyond the in-stent restenosis. IFR was performed and the IFR wire was subsequently removed. Final angiography showed no dissection. The guide catheter was removed over the wire and hemostasis was gained via TR band. The results of angiography: The left main coronary artery is a short, large caliber vessel that bifurcates into the left anterior descending coronary artery and the left circumflex coronary arteries. The left anterior descending coronary artery gives off a large caliber high first diagonal branch. The diagonal branch is a large caliber vessel that provides multiple additional diagonal branches. Left anterior descending is a large caliber vessel that extends to the distal apex. There is a stent in the proximal left anterior descending coronary artery, which shows 50% in-stent restenosis. The remainder of the vessel shows no significant disease. There is no significant disease within the diagonal branches. The left circumflex is a moderate caliber nondominant vessel that shows no significant disease. The left circumflex coronary artery gives off a high OM1 and a high OM2 branch, which are moderate caliber and show no significant disease. The right coronary artery is a large caliber dominant vessel that shows no significant disease. Left ventriculography was not performed as the valve was not crossed. IFR of the proximal LAD in-stent restenosis gave a nonsignificant value of 0.95. CONCLUSIONS: Single vessel coronary artery disease with 50% in-stent restenosis of the proximal LAD. IFR of the in-stent restenosis of the proximal LAD was nonsignificant at 0.95. RECOMMENDATIONS: Recommend continue maximal medical therapy for treatment of coronary artery disease. JOB# [id number] /NATALIIA
--- NOTE | 2018-12-31 14:16 | Progress Note ---
Assessment and Plan Patient is 63-year-old man with a history of hypertension, COPD, CAD, hyperlipidemia, history of TIA, h/o cocaine abuse, who p/w VEGAS and chest pain. According to the patient's clinical findings, it is possible that the patient has trigeminal neuralgia. To support this diagnosis, the patient notably has a persistent right trigeminal artery noted on CTA head and neck. The patient also has tenderness over the right temporal region, and also has normal ESR and CRP. Therefore, it is less likely to be giant cell arteritis. Plan: 1. Headache: Likely trigeminal neuralgia. -CTA head and neck revealed persistent temporal artery on the right. - MRI brain unremarkable. -ESR and CRP normal. -Continue carbamazepine 100 mg twice a day. - As patient has right persistent trigeminal artery which is likely causing trigeminal neuralgia, patient should be referred to endovascular neurosurgery at [place] as outpatient for further management. - Recommend follow up outpatient with neurology. - As investigations complete and treatment plan is in place. Will sign off. Please call with any questions. 2. Chest pain: - Cont. management per primary team/cardiology. Thank you for allowing me to take part in the care of this patient. Pavan Rodriguez MD Neurology Subjective Date of service: 12/31/18 Principal diagnosis: Trigeminal neuralgia Interval history: No acute events overnight. No headache overnight. Objective - Exam Narrative Exam: Patient is alert, awake, oriented 4, follows complex commands. Pupils equal round reactive to light, visual rodríguez full, no facial weakness noted, decreased sensation to light touch on the right side of the face, notably has mild blurred vision in the right eye when the left eye is covered. Significant tenderness noted in the right temporal region. Sensation bilaterally intact to light touch in all extremities. Motor strength 5/5 in all extremities. 2+ reflexes throughout. Bilaterally intact [id number] and [id number]. - Vital Sign Vital Signs - 12hr 12/31/18 12/31/18 04:04 11:46 Temperature 98.4 F Pulse Rate 69 60 Respiratory 18 Rate Blood Pressure 142/76 134/93 O2 Sat by Pulse 98 Oximetry - General Apperance Constitutional: comfortable - EENT EENT: ATNC, PERRL, mucous membranes moist, hearing intact, vision intact - Respiratory Respiratory: lungs clear, normal breath sounds - Cardiovascular Cardiovascular: regular rate, normal S1, normal S2 Extremities: no clubbing, cyanosis, no inflammation - Gastrointestinal Gastrointestinal: normoactive bowel sounds, soft, non-tender - Integumentary Integumentary: normal - Musculoskeletal Musculoskeletal: no fluid collection, no pain - Psychiatric Psychiatric: mood/affect appropriate - Laboratory Findings CBC and BMP: 12/29/18 07:48 12/31/18 04:15 Abnormal Lab Findings: Abnormal Labs 12/27/18 12/27/18 12/28/18 23:54 23:54 01:17 RDW 15.4 H Lymph % (Auto) 35.6 H [place] % (Auto) 8.5 H Eos % (Auto) 4.6 H D-Dimer 315.25 H Potassium 3.1 L BUN 6 L Creatinine 0.7 L Glucose 109 H 12/29/18 12/29/18 12/31/18 07:48 07:48 04:15 RDW Lymph % (Auto) [place] % (Auto) 7.9 H Eos % (Auto) D-Dimer Potassium 3.5 L BUN 7 L Creatinine Glucose 101 H
--- NOTE | 2018-12-31 15:41 | Discharge Summary ---
Providers - Providers Date of Admission: 12/28/18 05:20 Date of discharge: 12/31/18 Attending physician: WES SNELL 12/28/18 04:41 Consult to Physician [CONS] Routine Comment: Consulting Provider: CALIN LEZAMA Physician Instructions: Reason For Exam: cp 12/29/18 16:18 Consult to Physician [CONS] Routine Comment: Consulting Provider: DANIELA WALLACE Physician Instructions: Reason For Exam: right side VEGAS and numbness 12/31/18 11:04 Consult to Cardiac Rehabilitation [CONS] Routine Reason For Exam: Cardiac Rehab Evaluation [facility] Hospital[facility] Condition: Stable Hospital course: Patient is a 63-year-old man with a history of tobacco dependency and cocaine abuse who presented to [facility] with chest pain. He was admitted to the hospital, ACS was ruled out. He was planned for Lexiscan stress test, however, the stress lab cameras was not working properly on 12/30/18. He was to be discharge but he had on-going chest pains and severe. right sided headaches. So, the stress test was done on Saturday and it was abnormal. The right sided head pains most likely is trigeminal neuralgia from right persistent trigeminal artery which is likely causing trigeminal neuralgia, patient should be referred to endovascular neurosurgery at [place] as outpatient for further management; picked up on CTA head/neck. * [facility] Conclusions: Single Vessel CAD with 50% in-stent restenosis of the proximal LAD, IFR of the in-stent re-stenosis of the proximal LAD was non- significant at 0.95, Recommendations: Recommend continue maximal medical therapy for treatment of CAD Discharge Diagnoses: Chest pain, on going with positive stress test: [facility] tomorrow, Cardiology. Crack cocaine abuse: investment counselor done Tobacco dependence: counseling done Chronic systolic CHF, EF 20% Right sided headache, most likely trigeminal neuralgia: d/w Neurology, to start treatment and patient will need to go to outpatient [facility] for the anatomical anomaly. Started Carbamazepine 100mg BID Disposition: TO HOME OR SELFCARE Time spent for discharge: 36 minutes Core Measure Documentation - Palliative Care Palliative Care/ Comfort Measures: Not Applicable - Core Measures Any of the following diagnoses?: none - VTE Discharge Requirements Deep Vein Thrombosis/Pulmonary Embolism Present on Admission: No Has pt received <5 days of overlap therapy or INR<2.0: No Anticoagulant overlap therapy prescribed at discharge: No Contraindication No Overlap Therapy order at DC: Not Indicated Exam - Physical Exam Narrative exam: Gen: WDWN, NAD, Awake, Alert, Orientated HEENT: NCAT, EOMI, PERRL, OP Clear, right samaritan area tenderness Neck: supple, no adenopathy, no thyromegaly, no JVD CVS/Heart: RRR, normal S1S2, pulses present bilaterally Chest/Lungs: CTA B, Symmetrical chest expansion, good air entry bilaterally GI/Abdomen: soft, NTND, good bowel sounds, no guarding or rebound /Bladder: no suprapubic tenderness, no CVA or paraspinal tenderness Extermity/Skin: no c/c/e, no obvious rash MSK: FROM x 4 Neuro: CN 2-12 grossly intact except trigeminal sensory, no new focal deficits Psych: calm - Constitutional Vitals: Temp Pulse Resp BP Pulse Ox 98.4 F 60 18 134/93 98 12/31/18 04:04 12/31/18 11:46 12/31/18 04:04 12/31/18 11:46 12/31/18 04:04 Plan Activity: other (no strenous activity unless cleared by PCP) Diet: low salt Special Instructions: record daily BP diary Additional Instructions: Make an Appointment with [place] [facility] [phone] for persistent Trigeminal Artery cause Trigeminal Neuralgia Headaches. Follow up with: ABDULAZIZ ONEILLO'BRIEN MD PA [Primary Care Provider] - 3-5 Days Prescriptions: AtorvaSTATin [Lipitor] 40 mg PO QHS #30 tablet Aspirin [Aspirin BABY CHEW TAB] 81 mg PO QDAY #100 tab.chew Potassium Chloride [K-Dur] 10 meq PO QDAY #30 tablet Clopidogrel [Plavix] 75 mg PO QDAY 30 Days #30 tablet carBAMazepine [TEGretol] 100 mg PO BID #60 tab.chew Lisinopril [Zestril TAB] 10 mg PO QDAY #30 tablet
[2018-12-31 16:16] VITALS: BP 120/87
== END 2018-12-31 18:50 | disposition home or self-care (01) | DRG 287 ==
LOC: ED 23:29 → 4A 12-28 05:20
PROVIDERS: ADMIT Internal Medicine; ATTEND Internal Medicine
PROC: 4A023N7 Measurement of Cardiac Sampling and Pressure, Left Heart, Percutaneous Approach (ICD-10-PCS; principal; 2018-12-31)
PROC: B2111ZZ Fluoroscopy of Multiple Coronary Arteries using Low Osmolar Contrast (ICD-10-PCS; 2018-12-31)
PROC: 4A0335C Measurement of Arterial Flow, Coronary, Percutaneous Approach (ICD-10-PCS; 2018-12-31)
DX: T82.855A Stenosis of coronary artery stent, initial encounter (principal); I50.22 Chronic systolic (congestive) heart failure; I25.10 Atherosclerotic heart disease of native coronary artery without angina pectoris; Z86.73 Personal history of transient ischemic attack (TIA), and cerebral infarction without residual deficits; J44.9 Chronic obstructive pulmonary disease, unspecified; F17.210 Nicotine dependence, cigarettes, uncomplicated; Z96.659 Presence of unspecified artificial knee joint; G50.0 Trigeminal neuralgia; I11.0 Hypertensive heart disease with heart failure; F14.10 Cocaine abuse, uncomplicated; I25.5 Ischemic cardiomyopathy; Y83.8 Other surgical procedures as the cause of abnormal reaction of the patient, or of later complication, without mention of misadventure at the time of the procedure; Z87.11 Personal history of peptic ulcer disease; Z82.49 Family history of ischemic heart disease and other diseases of the circulatory system; Z83.3 Family history of diabetes mellitus; Z79.82 Long term (current) use of aspirin; I25.2 Old myocardial infarction; Z95.5 Presence of coronary angioplasty implant and graft; Y92.098 Other place in other non-institutional residence as the place of occurrence of the external cause; Z71.51 Drug abuse counseling and surveillance of drug abuser; Z71.6 Tobacco abuse counseling
CPT/HCPCS: 36415; 70450; 70496; 70498; 70551; 71045; 71275; 78452; 80048; 80307; 80320; 82140; 82962; 84443; 84484; 85025; 85379; 85610; 85652; 86140; 90686; 90732; 93005; 93010; 93017; 93454; 93571; 96372; 96374; 99406; G0378; A9270-GY; A9502; C1769; C1887; C1894; G0480; J1644; J1650; J2250; J2270; J2785; J3010; J7040; Q9967

== ENCOUNTER 2019-03-08 05:24 | Observation (INO) | payer SELFPAY ==
[2019-03-08] MEDS ORDERED: ALBUTEROL 2.5 MG/3 ML NEBU IH ONE (05:39)
[2019-03-08] MEDS ORDERED: IPRATROPIUM 0.02% NEBU 2.5 ML IH ONE (05:39)
--- NOTE | 2019-03-08 05:41 | Emergency Department Report ---
<GEORGIA DURANT - Last Filed: 03/08/19 05:48> ED Shortness of Breath HPI - General Stated Complaint: HENRY Source: patient, EMS - History of Present Illness Initial Comments: Patient is 63 years old male with history of COPD, congestive heart failure with ejection fraction of 20%, hypertension, coronary artery disease and arthritis. Patient brought to the emergency room via EMS for evaluation of shortness of breath and difficulty in breathing started this morning. EMS stated that patient initial oxygen saturation was 92%. EMS started patient on BiPAP. Patient was given albuterol 5 mg, Solu-Medrol 125 mg, Ativan 2 mg, and 2 g of magnesium sulfate. Upon arrival to the ER patient is alert, oriented 3 with moderate respiratory distress on BiPAP. Patient oxygen saturation is 100%. MD Complaint: shortness of breath, cough -: This morning Severity: severe Known History Of: COPD Treatments Prior to Arrival: oxygen, bronchodilator, NIPPV - Related Data Previous Rx's Medication Instructions Recorded Last Taken Type Aspirin [Aspirin BABY CHEW TAB] 81 mg PO QDAY #100 tab.chew 12/29/18 Unknown Rx AtorvaSTATin [Lipitor] 40 mg PO QHS #30 tablet 12/29/18 Unknown Rx Clopidogrel [Plavix] 75 mg PO QDAY 30 Days #30 tablet 12/29/18 Unknown Rx Lisinopril [Zestril TAB] 10 mg PO QDAY #30 tablet 12/29/18 Unknown Rx Potassium Chloride [K-Dur] 10 meq PO QDAY #30 tablet 12/31/18 Unknown Rx carBAMazepine [TEGretol] 100 mg PO BID #60 tab.chew 12/31/18 Unknown Rx Allergies Allergy/AdvReac Type Severity Reaction Status Date / Time No Known Allergies Allergy Verified 09/16/18 12:19 ED Review of Systems Comment: All other systems reviewed and negative Respiratory: orthopnea, shortness of breath, SOB with exertion, SOB at rest, wheezing. denies: cough Cardiovascular: denies: chest pain, palpitations Gastrointestinal: denies: abdominal pain, nausea, vomiting, diarrhea, constipation, hematemesis, melena, hematochezia Musculoskeletal: denies: back pain Neurological: denies: headache, weakness, numbness, paresthesias, confusion ED Past Medical Hx - Past Medical History Hx Hypertension: Yes Hx CVA: Yes Hx Heart Attack/AMI: Yes Hx Congestive Heart Failure: No Hx Diabetes: No Hx Arthritis: Yes Hx Asthma: No Hx COPD: Yes Additional medical history: "sepsis" 09/2014 - Surgical History Hx Coronary Stent: Yes (1 stent) Additional Surgical History: Peptic Ulcer surgery. 2 Knee surgeries - Social History Smoking Status: Current Every Day Smoker - Medications Home Medications: Home Medications Medication Instructions Recorded Confirmed Last Taken Type Aspirin [Aspirin BABY CHEW TAB] 81 mg PO QDAY #100 tab.chew 12/29/18 Unknown Rx AtorvaSTATin [Lipitor] 40 mg PO QHS #30 tablet 12/29/18 Unknown Rx Clopidogrel [Plavix] 75 mg PO QDAY 30 Days #30 tablet 12/29/18 Unknown Rx Lisinopril [Zestril TAB] 10 mg PO QDAY #30 tablet 12/29/18 Unknown Rx Potassium Chloride [K-Dur] 10 meq PO QDAY #30 tablet 12/31/18 Unknown Rx carBAMazepine [TEGretol] 100 mg PO BID #60 tab.chew 12/31/18 Unknown Rx ED Physical Exam - General General appearance: alert, anxious, in distress (moderate respiratory distress) - Head Head exam: Present: atraumatic, normocephalic, normal inspection - Eye Eye exam: Present: normal appearance - ENT ENT exam: Present: normal exam, normal orophraynx, mucous membranes moist - Neck Neck exam: Present: normal inspection, full ROM. Absent: tenderness, meni ngismus, lymphadenopathy, thyromegaly - Respiratory Respiratory exam: Present: respiratory distress, wheezes, rales, rhonchi, decreased breath sounds, prolonged expiratory. Absent: stridor, chest wall tenderness, accessory muscle use - Cardiovascular Cardiovascular Exam: Present: regular rate, normal rhythm, normal heart sounds - GI/Abdominal GI/Abdominal exam: Present: soft, normal bowel sounds. Absent: distended, tenderness, guarding, rebound, rigid, organomegaly, mass, bruit, pulsatile mass, hernia - Extremities Exam Extremities exam: Present: normal inspection, full ROM, normal capillary refill. Absent: tenderness, pedal edema, calf tenderness - Back Exam Back exam: Present: normal inspection, full ROM. Absent: CVA tenderness (R), CVA tenderness (L) - Neurological Exam Neurological exam: Present: alert, oriented X3, CN II-XII intact - Skin Skin exam: Present: warm, intact, normal color Critical Care Time: Yes Critical care time in (mins) excluding proc time.: 30 ED Disposition Clinical Impression: COPD exacerbation Disposition: DC-09 OP ADMIT IP TO THIS HOSP Condition: Good Instructions: Chronic Obstructive Pulmonary Disease (ED) <TRINHXIMENA - Last Filed: 03/08/19 07:38> ED Review of Systems ROS: Stated complaint: HENRY Other details as noted in HPI ED Course Vital Signs 03/08/19 03/08/19 03/08/19 05:27 05:41 05:50 Pulse Rate 86 101 H Pulse Rate [ 89 Posterior] Respiratory 26 H 26 H Rate Respiratory 20 Rate [Posterior ] Blood Pressure 146/90 146/61 Blood Pressure [Left] O2 Sat by Pulse 97 98 Oximetry 03/08/19 07:26 Pulse Rate 74 Pulse Rate [ Posterior] Respiratory 16 Rate Respiratory Rate [Posterior ] Blood Pressure Blood Pressure 131/90 [Left] O2 Sat by Pulse 100 Oximetry - Reevaluation(s) Reevaluation #1: 03/08/19 07:36 Patient reassessed. Appears comfortable. Laboratory studies an x-ray of the chest improved. Hospital physician, Dr. Quintana to admit xr chest appreciated ED Medical Decision Making - Lab Data Result diagrams: 03/08/19 05:56 03/08/19 05:56 Vital Signs 03/08/19 03/08/19 03/08/19 05:27 05:41 05:50 Pulse Rate 86 101 H Pulse Rate [ 89 Posterior] Respiratory 26 H 26 H Rate Respiratory 20 Rate [Posterior ] Blood Pressure 146/90 146/61 Blood Pressure [Left] O2 Sat by Pulse 97 98 Oximetry 03/08/19 07:26 Pulse Rate 74 Pulse Rate [ Posterior] Respiratory 16 Rate Respiratory Rate [Posterior ] Blood Pressure Blood Pressure 131/90 [Left] O2 Sat by Pulse 100 Oximetry Lab Results 03/08/19 03/08/19 03/08/19 Range/Units 05:56 05:56 05:56 WBC 7.6 (4.5-11.0) K/mm3 RBC 4.63 (3.65-5.03) M/mm3 Hgb 13.5 (11.8-15.2) gm/dl Hct 41.2 (35.5-45.6) % MCV 89 (84-94) fl MCH 29 (28-32) pg MCHC 33 (32-34) % RDW 14.7 (13.2-15.2) % Plt Count 190 (140-440) K/mm3 Lymph % (Auto) 32.1 (13.4-35.0) % Mcleod % (Auto) 5.9 (0.0-7.3) % Eos % (Auto) 2.3 (0.0-4.3) % Baso % (Auto) 0.4 (0.0-1.8) % Lymph # 2.4 (1.2-5.4) K/mm3 Mcleod # 0.4 (0.0-0.8) K/mm3 Eos # 0.2 (0.0-0.4) K/mm3 Baso # 0.0 (0.0-0.1) K/mm3 Seg Neutrophils % 59.3 (40.0-70.0) % Seg Neutrophils # 4.5 (1.8-7.7) K/mm3 PT 13.0 (12.2-14.9) Sec. INR 0.97 (0.87-1.13) APTT 27.3 (24.2-36.6) Sec. Sodium 142 (137-145) mmol/L Potassium 4.0 (3.6-5.0) mmol/L Chloride 107.9 H (98-107) mmol/L Carbon Dioxide 22 (22-30) mmol/L Anion Gap 16 mmol/L BUN 9 (9-20) mg/dL Creatinine 0.9 (0.8-1.5) mg/dL Estimated GFR > 60 ml/min BUN/Creatinine Ratio 10 % Glucose 126 H (75-100) mg/dL Calcium 9.1 (8.4-10.2) mg/dL Total Bilirubin 0.30 (0.1-1.2) mg/dL AST 16 (5-40) units/L ALT 16 (7-56) units/L Alkaline Phosphatase 81 (35-129) units/L Troponin T < 0.010 (0.00-0.029) ng/mL NT-Pro-B Natriuret Pep (0-900) pg/mL Total Protein 6.4 (6.3-8.2) g/dL Albumin 4.0 (3.9-5) g/dL Albumin/Globulin Ratio 1.7 % 12/15/19 Range/Units 05:56 WBC (4.5-11.0) K/mm3 RBC (3.65-5.03) M/mm3 Hgb (11.8-15.2) gm/dl Hct (35.5-45.6) % MCV (84-94) fl MCH (28-32) pg MCHC (32-34) % RDW (13.2-15.2) % Plt Count (140-440) K/mm3 Lymph % (Auto) (13.4-35.0) % Mcleod % (Auto) (0.0-7.3) % Eos % (Auto) (0.0-4.3) % Baso % (Auto) (0.0-1.8) % Lymph # (1.2-5.4) K/mm3 Mcleod # (0.0-0.8) K/mm3 Eos # (0.0-0.4) K/mm3 Baso # (0.0-0.1) K/mm3 Seg Neutrophils % (40.0-70.0) % Seg Neutrophils # (1.8-7.7) K/mm3 PT (12.2-14.9) Sec. INR (0.87-1.13) APTT (24.2-36.6) Sec. Sodium (137-145) mmol/L Potassium (3.6-5.0) mmol/L Chloride (98-107) mmol/L Carbon Dioxide (22-30) mmol/L Anion Gap mmol/L BUN (9-20) mg/dL Creatinine (0.8-1.5) mg/dL Estimated GFR ml/min BUN/Creatinine Ratio % Glucose (75-100) mg/dL Calcium (8.4-10.2) mg/dL Total Bilirubin (0.1-1.2) mg/dL AST (5-40) units/L ALT (7-56) units/L Alkaline Phosphatase (35-129) units/L Troponin T (0.00-0.029) ng/mL NT-Pro-B Natriuret Pep 819.6 (0-900) pg/mL Total Protein (6.3-8.2) g/dL Albumin (3.9-5) g/dL Albumin/Globulin Ratio % - EKG Data -: EKG Interpreted by Me - EKG Data 03/08/19 07:37 The EKG today shows a sinus rhythm, 89 bpm, there is a borderline leftward axis deviation, there is low voltage, the QTC is prolonged, the EKG is abnormal, it is not consistent with ST elevation myocardial infarction, it appears to be grossly unchanged from prior EKG from December 2018, with the exception of left axis deviation, which may be secondary to lead placement at this time. - Radiology Data Radiology results: report reviewed, image reviewed Print Report Referring Physician: GEORGIA DURANT Patient Name: KAEL ARGUELLO Date of : 1955 Sex: Male Report Date: 2019-03-08 Report Status: Finalized Findings [address] [address] XRay Report Signed Patient: KAEL ARGUELLO MR#: [id number] : 1955 Acct:[id number] Age/Sex: 63 / M ADM Date: 03/08/19 Loc: ED Attending Dr: Ordering Physician: GEORGIA DURANT Date of Service: 03/08/19 Procedure(s): XR chest 1V ap Accession Number(s): [id number] cc: GEORGIA DURANT Fluoro Time In Minutes: CHEST 1 VIEW INDICATION / CLINICAL INFORMATION: Dyspnea. COMPARISON: 12/28/2018 FINDINGS: SUPPORT DEVICES: None. HEART / MEDIASTINUM: No significant abnormality. LUNGS / PLEURA: There is now moderately severe interstitial lung disease not seen previously. No alveolar consolidation or effusions. No pneumothorax. ADDITIONAL FINDINGS: No significant additional findings. IMPRESSION: 1 New interstitial lung disease likely either edema or atypical pneumonia. Signer Name: Henrique Mendez MD Signed: 03/08/2019 6:20 AM Workstation Name: [id number] Transcribed By: ADAM Dictated By: Henrique Mendez MD Electronically Authenticated By: Henrique Mendez MD Signed Date/Time: 03/08/19619 DD/ 8 Critical care attestation.: If time is entered above; I have spent that time in minutes in the direct care of this critically ill patient, excluding procedure time. ED Disposition Is pt being admited?: Yes Does the pt Need Aspirin: Yes
[2019-03-08] MEDS ORDERED: FUROSEMIDE 40 MG/4 ML INJ IV ONE (05:48)
[2019-03-08 06:18] LABS: Basophils % (Auto) 0.4 % (0.0-1.8); Eosinophils # (Auto) 0.2 K/mm3 (0.0-0.4); Eosinophils % (Auto) 2.3 % (0.0-4.3); Hematocrit 41.2 % (35.5-45.6); Hemoglobin 13.5 gm/dl (11.8-15.2); Lymphocytes # (Auto) 2.4 K/mm3 (1.2-5.4); Lymphocytes % (Auto) 32.1 % (13.4-35.0); Mean Corpuscular HGB Conc 33 % (32-34); Mean Corpuscular Volume 89 fl (84-94); Monocytes # (Auto) 0.4 K/mm3 (0.0-0.8); Monocytes % (Auto) 5.9 % (0.0-7.3); Platelet Count 190 K/mm3 (140-440); Red Blood Count 4.63 M/mm3 (3.65-5.03); Red Cell Distribution Width 14.7 % (13.2-15.2)
--- NOTE | 2019-03-08 06:24 | XRay Report ---
CHEST 1 VIEW INDICATION / CLINICAL INFORMATION: Dyspnea. COMPARISON: 12/28/2018 FINDINGS: SUPPORT DEVICES: None. HEART / MEDIASTINUM: No significant abnormality. LUNGS / PLEURA: There is now moderately severe interstitial lung disease not seen previously. No alve olar consolidation or effusions. No pneumothorax. ADDITIONAL FINDINGS: No significant additional findings. IMPRESSION: 1 New interstitial lung disease likely either edema or atypical pneumonia. Signer Name: Henrique Mendez MD Signed: 03/08/2019 6:20 AM Workstation Name: [id number]
[2019-03-08 06:28] LABS: INR 0.97 (0.87-1.13)
[2019-03-08 06:29] LABS: Partial Thromboplastin Time 27.3 Sec. (24.2-36.6)
[2019-03-08 06:43] LABS: Alanine Aminotransferase 16 units/L (7-56); BUN/Creatinine Ratio 10; Blood Urea Nitrogen 9 mg/dL (9-20); Calcium 9.1 mg/dL (8.4-10.2); Hemolysis Index 2
[2019-03-08] MEDS ORDERED: ASPIRIN 81 MG TAB CHEW PO ONE (07:38)
[2019-03-08 08:51] LABS: Bacteria,Urine 1+ /HPF (Negative); Bilirubin,Urine NEG (Negative); Blood,Urine NEG (Negative); Color,Urine Colorless (Yellow); Protein,Urine <15 mg/dL mg/dL (Negative); Urobilinogen,Urine < 2.0 mg/dL (<2.0); WBC,Urine < 1.0 /HPF (0.0-6.0)
[2019-03-08] MEDS ORDERED: ALUM-MAG HYDROXIDE-SIMETHICONE 200-200-20MG/5ML ORAL LIQD 30 ML PO PRN (10:07)
[2019-03-08] MEDS ORDERED: HYDROcodone/ACETAMINOPHEN 5-325 MG TAB PO PRN (10:07)
[2019-03-08] MEDS ORDERED: ONDANSETRON 4 MG/2 ML INJ IV PRN (10:07)
[2019-03-08] MEDS ORDERED: ACETAMINOPHEN 325 MG TAB PO PRN (10:07)
--- NOTE | 2019-03-08 10:08 | History and Physical Report ---
History of Present Illness Date of examination: 03/08/19 Date of admission: 03/08/19 07:39 Chief complaint: SOB History of present illness: Patient is 63 years old male with history of COPD, congestive heart failure with ejection fraction of 20%, hypertension, coronary artery disease and arthritis, h/o cocaine abuse brought to the emergency room via EMS for evaluation of shortness of breath and difficulty in breathing started from this morning. EMS stated that patient initial oxygen saturation was 92%. EMS started patient on BiPAP. Patient was given albuterol 5 mg, Solu-Medrol 125 mg, Ativan 2 mg, and 2 g of magnesium sulfate. Upon arrival to the ER patient is alert, oriented 3 with moderate respiratory distress on BiPAP and Patient oxygen saturation is 100%. His CXR revealed new interstitial edema versus pneumonia. He is being admitted for COPD/CHF exacerbation. PAST MEDICAL HISTORY:hypertension, coronary artery disease, CVA, COPD PAST SURGICAL HISTORY: Surgery for peptic ulcer, knee replacement FAMILY HISTORY:hypertension, diabetes SOCIAL HISTORY: 2 packs a day,+ positive for cocaine, drink 4 beers a day Review of System: Constitutional: no fever, no chills, no weight loss Ears, eyes, nose, mouth and throat: no nasal congestion, no nasal discharge, no sinus pressure, no vision change, no red eye. Neck: No neck pain or rigidity. Cardiovascular: No chest pain, + orthopnea, + palpitations, no leg swelling Respiratory: + shortness of breath, + cough,+ congestion, no wheezing Gastrointestinal: no abdominal pain, no nausea, no vomiting Genitourinary : no dysuria, no hematuria Musculoskeletal: no joint swelling or muscle ache Integumentary: no rash, no pruritis Neurological: no parathesias, no numbness, no tingling Endocrine: no cold or heat intolerance, no polyuria or polydipsia Hematologic/Lymphatic: no easy bruising, no easy bleeding, no gland swelling Allergic/Immunologic: no urticaria, no angioedema. Medications and Allergies Allergies Allergy/AdvReac Type Severity Reaction Status Date / Time No Known Allergies Allergy Verified 09/16/18 12:19 Home Medications Medication Instructions Recorded Confirmed Last Taken Type Aspirin [Aspirin BABY CHEW TAB] 81 mg PO QDAY #100 tab.chew 12/29/18 Unknown Rx AtorvaSTATin [Lipitor] 40 mg PO QHS #30 tablet 12/29/18 Unknown Rx Clopidogrel [Plavix] 75 mg PO QDAY 30 Days #30 tablet 12/29/18 Unknown Rx Lisinopril [Zestril TAB] 10 mg PO QDAY #30 tablet 12/29/18 Unknown Rx Potassium Chloride [K-Dur] 10 meq PO QDAY #30 tablet 12/31/18 Unknown Rx carBAMazepine [TEGretol] 100 mg PO BID #60 tab.chew 12/31/18 Unknown Rx Active Meds: Active Medications Acetaminophen (Tylenol) 650 mg PO Q4H PRN PRN Reason: Pain MILD(1-3)/Fever >100.5/VEGAS Albuterol/Ipratropium (Duoneb *Not For Prn Use*) 1 ampul IH Q6HRT CAR Aspirin (Baby Aspirin) 81 mg PO QDAY CAR Atorvastatin Calcium (Lipitor) 40 mg PO QHS CAR Carbamazepine (Tegretol) 100 mg PO BID CAR Clopidogrel Bisulfate (Plavix) 75 mg PO QDAY CAR Ceftriaxone Sodium (Rocephin/Ns 1 Gm/50 Ml) 1 gm in 50 mls @ 100 mls/hr IV Q12HR CAR; Protocol Azithromycin 500 mg/ Sodium (Chloride) 250 mls @ 250 mls/hr IV Q24HR CAR; Protocol Lisinopril (Zestril) 10 mg PO QDAY CAR Exam - Physical Exam Narrative exam: GENERAL: well-developed and well-nourished male lying on bed appeared to be in mild discomfort. HEENT: Normocephalic. Atraumatic. No conjunctival congestion or icterus. Patient has moist mucous membranes. NECK: Supple. Trachea midline. CHEST/LUNGS: Coarse breath sounds auscultated bilaterally, breathing slightly labored. HEART/CARDIOVASCULAR: Regular in rate and rhythm. S1 and S2 positive. ABDOMEN: Abdomen is soft, nontender. Patient has normal bowel sounds. SKIN: There is no rash. Warm and dry. NEURO: No focal motor deficit. Follows command. MUSCULOSKELETAL: No joint effusion or tenderness. EXTRIMITY: No edema, no cyanosis or clubbing. PSYCH: Cooperative.. - Constitutional Vitals: Temp Pulse Resp BP Pulse Ox 74 16 131/90 100 03/08/19 07:26 03/08/19 07:26 03/08/19 07:26 03/08/19 07:26 Results - Labs CBC & Chem 7: 03/08/19 05:56 03/08/19 05:56 Labs: Abnormal lab results 03/08/19 Range/Units 05:56 Chloride 107.9 H (98-107) mmol/L Glucose 126 H (75-100) mg/dL Assessment and Plan Acute hypoxic respiratory failure - Likely due to underlying CHF and COPD exacerbation - Placed on BiPAP in the ER, now on nasal cannula - Will provide scheduled nebulizer breathing treatment and as needed - Place on empiric steroid and antibiotic - will get sputum culture, chest x-ray x-ray showed underlying pneumonia versus pulmonary edema - Provide supplemental oxygen to keep oxygen saturation above 92% - Consider to consult pulmonary if no improvement in next 24 hours Acute on Chronic systolic CHF, EF 20% -We'll place on Lasix IV daily - Chest x-ray showed New interstitial lung disease likely either edema or atypical pneumonia. COPD exacerbation, likely due to underlying pneumonia versus pulmonary edema - We'll place on DuoNeb's, steroid, antibiotics . Crack cocaine abuse: - chromosomal disorders counselor done, will order UDS Tobacco dependence: Nicotine patch as needed Alcohol abuse, monitor for withdrawal, and folic acid and thiamine - Provide DVT prophylaxis with Lovenox
[2019-03-08] MEDS: LISINOPRIL 10 MG TAB PO SCH (12:15)
[2019-03-08] MEDS: CLOPIDOGREL 75 MG TAB PO SCH (12:15)
[2019-03-08] MEDS: methylPREDNISolone Sod Succinate 40 MG/1 ML INJ IV SCH ×2 (13:20→22:37)
[2019-03-08] MEDS: IPRATROPIUM/ALBUTEROL SULFATE 3 ML AMPUL.NEB IH SCH ×2 (14:11→21:19)
[2019-03-08 16:49] LABS: Amphetamine Screen,Urine PRESUMPTIVE NEGATIVE; Benzodiazepines Screen,Urine PRESUMPTIVE NEGATIVE; Cannabinoid Screen,Urine PRESUMPTIVE NEGATIVE; Methadone Screen,Urine PRESUMPTIVE NEGATIVE; Opiate Screen,Urine PRESUMPTIVE NEGATIVE
[2019-03-08 17:01] LABS: Cocaine Screen,Urine PRESUMPTIVE POSITIVE
[2019-03-08] MEDS: FUROSEMIDE 40 MG/4 ML INJ IV SCH (17:14)
[2019-03-08] MEDS ORDERED: cefTRIAXone/NS 1 GM/50 ML 1 GM/50 ML BAG IV SCH (22:00)
[2019-03-08] MEDS ORDERED: ENOXAPARIN 40 MG/0.4 ML INJ SUB-Q SCH (22:00)
[2019-03-08] MEDS: carBAMazepine 100 MG TAB CHEW PO SCH (22:37)
[2019-03-08] MEDS: FAMOTIDINE 10 MG TAB PO SCH (22:37)
[2019-03-08] MEDS ORDERED: ALBUTEROL 2.5 MG/3 ML NEBU IH PRN (23:57)
[2019-03-09] MEDS: FUROSEMIDE 40 MG/4 ML INJ IV SCH (06:04)
[2019-03-09] MEDS: methylPREDNISolone Sod Succinate 40 MG/1 ML INJ IV SCH (06:04)
[2019-03-09] MEDS: IPRATROPIUM/ALBUTEROL SULFATE 3 ML AMPUL.NEB IH SCH ×2 (08:26→13:41)
[2019-03-09] MEDS ORDERED: cefTRIAXone/NS 2 GM/100 ML 2 GM/100 ML BAG IV SCH (10:00)
[2019-03-09] MEDS ORDERED: AZITHROMYCIN 500 MG in SODIUM CHLORIDE 0.9% 250ML 250 ML IV SCH (10:00)
[2019-03-09] MEDS ORDERED: ASPIRIN 81 MG TAB CHEW PO SCH (10:00)
[2019-03-09] MEDS: carBAMazepine 100 MG TAB CHEW PO SCH (11:29)
[2019-03-09] MEDS: CLOPIDOGREL 75 MG TAB PO SCH (11:29)
[2019-03-09] MEDS: FAMOTIDINE 10 MG TAB PO SCH (11:29)
[2019-03-09] MEDS: LISINOPRIL 10 MG TAB PO SCH (11:29)
[2019-03-09 11:43] VITALS: BP 140/84
--- NOTE | 2019-03-09 13:25 | Discharge Summary ---
Providers - Providers Date of Admission: 03/08/19 07:39 Date of discharge: 03/09/19 Attending physician: [facility] Condition: Good Pertinent studies: CXR - interstitial edema versus pneumonia Hospital course: Discharge diagnosis: Acute hypoxic respiratory failure, resolved - Likely due to underlying CHF and COPD exacerbation Acute on Chronic systolic CHF, EF 20% -Placed on Lasix IV daily - symptom resolved very quickly - Chest x-ray showed New interstitial lung disease likely either edema or atypical pneumonia. COPD exacerbation, likely due to underlying pneumonia versus pulmonary edema - Treated with DuoNeb's, steroid, antibiotics . Crack cocaine abuse: - UDS positive, counseled Tobacco dependence: Nicotine patch as needed Alcohol abuse, monitored for withdrawal, and folic acid and thiamine - Provide DVT prophylaxis with Lovenox Disposition: -01 TO HOME OR SELFCARE Time spent for discharge: 34 minutes Core Measure Documentation - Palliative Care Palliative Care/ Comfort Measures: Not Applicable - Core Measures Any of the following diagnoses?: heart failure - Heart Failure Discharge Requirements MAXINE/ARB for LVSD if EF <40%: Yes Beta hebert at discharge: Yes Exam - Physical Exam Narrative exam: GENERAL: well-developed and well-nourished male lying on bed appeared to be in no discomfort. HEENT: Normocephalic. Atraumatic. No conjunctival congestion or icterus. Patient has moist mucous membranes. NECK: Supple. Trachea midline. CHEST/LUNGS: Clear breath sounds auscultated bilaterally, breathing nonlabored. HEART/CARDIOVASCULAR: Regular in rate and rhythm. S1 and S2 positive. ABDOMEN: Abdomen is soft, nontender. Patient has normal bowel sounds. SKIN: There is no rash. Warm and dry. NEURO: No focal motor deficit. Follows command. MUSCULOSKELETAL: No joint effusion or tenderness. EXTRIMITY: No edema, no cyanosis or clubbing. PSYCH: Cooperative.. - Constitutional Vitals: Temp Pulse Resp BP Pulse Ox 98.3 F 92 H 20 140/84 91 03/09/19 11:41 03/09/19 11:41 03/09/19 11:41 03/09/19 11:41 03/09/19 11:41 Plan Activity: advance as tolerated Weight Bearing Status: Non-Weight Bearing Diet: low fat, low salt Special Instructions: restrict fluid intake to (1.2 l daily), smoking cessation [facility] - 7 Days Prescriptions: AtorvaSTATin [Lipitor] 40 mg PO QHS #30 tablet Aspirin [Aspirin BABY CHEW TAB] 81 mg PO QDAY #100 tab.chew Furosemide [Lasix] 20 mg PO QDAY #30 tablet Clopidogrel [Plavix] 75 mg PO QDAY 30 Days #30 tablet ALBUTEROL Inhaler (OR & NICU) [ProAir HFA Inhaler] 2 puff IH QID PRN #8.5 gram PRN Reason: Shortness Of Breath Azithromycin [Zithromax] 250 mg PO DAILY #5 tablet
== END 2019-03-09 16:00 | disposition home or self-care (01) ==
LOC: ED 05:24 → 3A 07:39
PROVIDERS: ADMIT Internal Medicine; ATTEND Internal Medicine
DX: J44.1 Chronic obstructive pulmonary disease with (acute) exacerbation (principal); R09.02 Hypoxemia; J96.90 Respiratory failure, unspecified, unspecified whether with hypoxia or hypercapnia; I10 Essential (primary) hypertension; I25.10 Atherosclerotic heart disease of native coronary artery without angina pectoris; F14.10 Cocaine abuse, uncomplicated; Z86.73 Personal history of transient ischemic attack (TIA), and cerebral infarction without residual deficits; M19.90 Unspecified osteoarthritis, unspecified site; F17.200 Nicotine dependence, unspecified, uncomplicated
CPT/HCPCS: 36415; 71045; 80053; 80307; 81001; 83880; 84484; 85025; 85610; 85730; 87040; 93005; 93010; 94640; 94644; 94760; 96365; 96367; 96372; 96375; 96376; 99284; 99406; A9270; G0378; J0456; J0696; J1650; J1940; J1956; J2920; J7050

== ENCOUNTER 2019-05-06 13:46 | Emergency (ER) | payer OTHER ==
--- NOTE | 2019-05-06 14:45 | Emergency Department Report ---
Blank Doc - Documentation Documentation: 63-year-old male that presents with right knee and right hand pain s/p fall in [employer]. This initial assessment/diagnostic orders/clinical plan/treatment(s) is/are subject to change based on patient's health status, clinical progression and re- assessment by fellow clinical providers in the ED. Further treatment and workup at subsequent clinical providers discretion. Patient/guardians urged not to elope from the ED as their condition may be serious if not clinically assessed and managed. Initial orders include: 1- Patient sent to [facility] for further evaluation and treatment 2- xrays
--- NOTE | 2019-05-06 15:39 | XRay Report ---
RIGHT HAND 3 VIEWS INDICATION / CLINICAL INFORMATION: pain s/p fall COMPARISON: None available. FINDINGS: BONES / JOINT(S): No acute fracture or subluxation. There is joint space narrowing in the PIP joints of the third fourth and fifth fingers and the thumb interphalangeal joint. There is narrowing of the thumb MCP joint in the index finger MCP joint. There is osteophyte formation and erosion noted the PIP joints of the third and fourth fingers and th e thumb and index finger MCP joints. The presence of erosions raises the possibility of an inflammato ry arthropathy SOFT TISSUES: There is a tiny radiopaque structure projecting in the soft tissue of the distal, later al aspect of the third finger this measures approximately 2 mm ADDITIONAL FINDINGS: Not mentioned above there is some deformity of the distal ulna which may be rela bradly to prior trauma Signer Name: Jcarlos Ansari MD Signed: 05/06/2019 3:35 PM Workstation Name: [id number]
--- NOTE | 2019-05-06 15:41 | XRay Report ---
RIGHT KNEE HISTORY: Pain after fall. COMPARISON: 06/29/2018. TECHNIQUE: 3 views of the right knee obtained. FINDINGS: Bones: No fracture or dislocation. Joint spaces: Moderate to severe osteoarthritis involving the medial and lateral joints and the rios lofemoral joint. The largest osteophytes are lateral osteophytes. Soft tissues: No significant abnormality. Additional findings: Mild opacification of the suprapatellar bursa is not significantly changed aravind red to the last exam. IMPRESSION: 1. Moderately severe osteoarthritis and no acute changes. Signer Name: Silvestre Ybarra MD Signed: 05/06/2019 3:36 PM Workstation Name: [id number]
[2019-05-06] MEDS ORDERED: predniSONE 20 MG TAB PO ONE (17:48)
--- NOTE | 2019-05-06 17:55 | Emergency Department Report ---
Chief Complaint: Extremity Problem,Nontraumatic Stated Complaint: RT KNEE/RT HAND NUMB/PAIN Time Seen by Provider: 05/06/19 14:44 - HPI History of Present Illness: This is a 63-year-old male who presents the ED complaining of right knee pain status post slip on a wet floor without falling 2-1/2 months ago, patient states this incident happened in February. Patient states he tripped in February. Patient states he has been treating with [id number] medications. Patient states that pain is localized right lateral knee. He denies difficulty walking. Patient states he did not sustain any head injuries or fall - ROS Review of Systems: As noted in HPI - Exam Vital Signs: Vital Signs 05/06/19 05/06/19 13:51 14:44 Temperature 97.5 F L 97.5 F L Pulse Rate 92 H 89 Respiratory 18 18 Rate Blood Pressure 137/91 137/91 O2 Sat by Pulse 99 98 Oximetry Physical Exam: GENERAL: Alert and oriented x3, no apparent distress, Normal Gait, atraumatic. HEAD: Head is normocephalic and a-traumatic. LUNGS: Symetrical with respiration, No wheezing, no rales or crackles, CTAB. EXTREMITIES/MUSCULOSKELETAL: No cyanosis, clubbing, rash, lesions or edema. Full ROM bilaterally. UE/LE Pulses 2+ bilaterally. LE and UE 5+ strength bilaterally, straight leg raise negative bilaterally NEUROLOGIC: The patient is cooperative with no focal neurologic deficits. Cranial nerves II through XII are grossly intact. SKIN: Warm and dry, No lesions, No ulceration or induration present. MSE screening note: Focused history and physical exam performed. Due to findings the following was ordered: ED Medical Decision Making - Radiology Data Radiology results: report reviewed, image reviewed - Medical Decision Making 38-year-old female presents to ED with knee pain since February ED course: X-rays were ordered prior to my evaluation of the patient. X-ray shows no acute findings. Vital signs are normal patient is in no acute distress Discussed with patient follow-up with primary care physician. Discussed the patient and take medications as prescribed. Patient has no neurological deficit. Patient is alert and oriented 3 and understands all instructions given. Discussed drowsiness effect of Flexeril makes her drowsy and not to operate machinery while taking flexeril ED Disposition for MSE Clinical Impression: Knee pain, Osteoarthritis Disposition: Z- MED SCREENING EXAM-LEFT Is pt being admited?: No Does the pt Need Aspirin: No Condition: Stable Instructions: Arthralgia (ED) Additional Instructions: Make sure to follow up with the primary care physician as discussed. Take all your medications as you've been prescribed. If you have any worsening symptoms or develop new symptoms please return to ED immediately. Prescriptions: Cyclobenzaprine [Flexeril] 10 mg PO QHS #20 tablet Referrals: PRIMARY CAREMD [Primary Care Provider] - 3-5 Days SYLVIA AYALA MD [Staff Physician] - 3-5 Days [facility] [Provider Group] - 3-5 Days Forms: Work/School Release Form(ED) Time of Disposition: 18:13
[2019-05-06 18:19] VITALS: BP 134/88
== END 2019-05-06 18:18 | disposition left against medical advice (07) ==
LOC: ED 13:46
DX: M17.11 Unilateral primary osteoarthritis, right knee (principal)
CPT/HCPCS: 73130; 73562; 99283; J7512

== ENCOUNTER 2019-05-25 04:44 | Emergency (ER) | payer OTHER ==
--- NOTE | 2019-05-25 04:53 | Event Note ---
Date: 05/25/19 Medical screening note: Patient is a 63-year-old gentleman with a history of CAD, stent, had a cardiac catheterization in December 2018, which showed single- vessel coronary disease, with 50% in-stent restenosis of the proximal LAD. He also has a history of cocaine use, presumed trigeminal neuralgia, chronic systolic congestive heart failure, EF of 20%. Cardiology: [facility] cardiology COPD doctor: Dr. Weiss Brought to the hospital by EMS for shortness of breath and chest pain. Apparently, patient was on CPAP in the field. In the emergency room, he is not in any acute distress, speaking full sentences, saturating anywhere from 93 to 96% on room air, and endorses left-sided chest discomfort and shortness of breath. Appropriate screening laboratory studies, EKG, x-ray of the chest ordered.
[2019-05-25] MEDS ORDERED: IPRATROPIUM/ALBUTEROL SULFATE 3 ML AMPUL.NEB IH ONE (05:05)
[2019-05-25 05:23] LABS: Hematocrit 39.6 % (35.5-45.6); Hemoglobin 13.3 gm/dl (11.8-15.2); Mean Corpuscular HGB Conc 34 % (32-34); Mean Corpuscular Volume 86 fl (84-94); Platelet Count 202 K/mm3 (140-440); Red Blood Count 4.62 M/mm3 (3.65-5.03)
[2019-05-25 05:33] LABS: INR 0.99 (0.87-1.13); Partial Thromboplastin Time 29.2 Sec. (24.2-36.6)
[2019-05-25 05:38] LABS: Alanine Aminotransferase 14 units/L (7-56); BUN/Creatinine Ratio 11; Blood Urea Nitrogen 9 mg/dL (9-20); Calcium 9.4 mg/dL (8.4-10.2); Hemolysis Index 6
--- NOTE | 2019-05-25 05:43 | XRay Report ---
CHEST 1 VIEW INDICATION / CLINICAL INFORMATION: Dyspnea. COMPARISON: 03/08/2019 FINDINGS: SUPPORT DEVICES: None. HEART / MEDIASTINUM: No significant abnormality. LUNGS / PLEURA: No significant pulmonary or pleural abnormality. No pneumothorax. ADDITIONAL FINDINGS: No significant additional findings. IMPRESSION: 1. No significant change Signer Name: Henrique Mendez MD Signed: 05/25/2019 5:39 AM Workstation Name: [id number]
--- NOTE | 2019-05-25 06:38 | Emergency Department Report ---
ED General Adult HPI - General Chief complaint: Dyspnea/Respdistress Stated complaint: HENRY Time Seen by Provider: 05/25/19 06:15 Source: EMS Mode of arrival: Stretcher Limitations: No Limitations - History of Present Illness Initial comments: The Patient presents to the emergency department the chief complaint of shortness of breath with left-sided chest tightness that started yesterday morning. Patient states that he has a history of COPD and began have difficulty breathing yesterday morning. Patient states due to his shortness of breath he began to have some tightness of his chest. Per EMS patient's O2 sats were 89% on their arrival and he was placed on CPAP and given 0.4 mg of sublingual nitroglycerin in route. Patient denies abdominal pain, headache, or weakness. -: Sudden Radiation: non-radiation Severity scale (0 -10): 1 Quality: aching Consistency: constant Improves with: none Worsens with: none Associated Symptoms: denies other symptoms Treatments Prior to Arrival: none - Related Data Previous Rx's Medication Instructions Recorded Last Taken Type lisinopriL [Zestril TAB] 10 mg PO QDAY #30 tablet 12/29/18 Unknown Rx carBAMazepine [TEGretol] 100 mg PO BID #60 tab.chew 12/31/18 Unknown Rx Albuterol INH(or & Nicu Only) 2 puff IH QID PRN #8.5 gram 03/09/19 Unknown Rx [ProAir HFA Inhaler] Aspirin [Aspirin BABY CHEW TAB] 81 mg PO QDAY #100 tab.chew 03/09/19 Unknown Rx AtorvaSTATin [Lipitor] 40 mg PO QHS #30 tablet 03/09/19 Unknown Rx Azithromycin [Zithromax] 250 mg PO DAILY #5 tablet 03/09/19 Unknown Rx Clopidogrel [Plavix] 75 mg PO QDAY 30 Days #30 tablet 03/09/19 Unknown Rx Furosemide [Lasix] 20 mg PO QDAY #30 tablet 03/09/19 Unknown Rx Cyclobenzaprine [Flexeril] 10 mg PO QHS #20 tablet 05/06/19 Unknown Rx Albuterol INH(or & Nicu Only) 2 puff IH Q4HR PRN #1 inhalation 05/25/19 Unknown Rx [ProAir HFA Inhaler] Azithromycin [Zithromax Z-FABIOLA] 250 mg PO DAILY #6 tablet 05/25/19 Unknown Rx predniSONE [Deltasone] 20 mg PO DAILY #15 tablet 05/25/19 Unknown Rx Allergies Allergy/AdvReac Type Severity Reaction Status Date / Time No Known Allergies Allergy Verified 09/16/18 12:19 ED Review of Systems ROS: Stated complaint: HENRY Other details as noted in HPI Comment: All other systems reviewed and negative Constitutional: denies: chills, fever Eyes: denies: eye pain, eye discharge, vision change ENT: denies: ear pain, throat pain Respiratory: shortness of breath. denies: cough, wheezing Cardiovascular: chest pain. denies: palpitations Endocrine: no symptoms reported Gastrointestinal: denies: abdominal pain, nausea, diarrhea Genitourinary: denies: urgency, dysuria Musculoskeletal: denies: back pain, joint swelling, arthralgia Skin: denies: rash, lesions Neurological: denies: headache, weakness, paresthesias Psychiatric: denies: anxiety, depression Hematological/Lymphatic: denies: easy bleeding, easy bruising ED Past Medical Hx - Past Medical History Hx Hypertension: Yes Hx CVA: Yes Hx Heart Attack/AMI: Yes Hx Congestive Heart Failure: Yes Hx Diabetes: No Hx Arthritis: Yes Hx Asthma: No Hx COPD: Yes Additional medical history: "sepsis" 09/2014 - Surgical History Hx Coronary Stent: Yes Additional Surgical History: Peptic Ulcer surgery. 2 Knee surgeries - Social History Smoking Status: Current Every Day Smoker Substance Use Type: Alcohol, Other - Medications Home Medications: Home Medications Medication Instructions Recorded Confirmed Last Taken Type lisinopriL [Zestril TAB] 10 mg PO QDAY #30 tablet 12/29/18 Unknown Rx carBAMazepine [TEGretol] 100 mg PO BID #60 tab.chew 12/31/18 Unknown Rx Albuterol INH(or & Nicu Only) 2 puff IH QID PRN #8.5 gram 03/09/19 Unknown Rx [ProAir HFA Inhaler] Aspirin [Aspirin BABY CHEW TAB] 81 mg PO QDAY #100 tab.chew 03/09/19 Unknown Rx AtorvaSTATin [Lipitor] 40 mg PO QHS #30 tablet 03/09/19 Unknown Rx Azithromycin [Zithromax] 250 mg PO DAILY #5 tablet 03/09/19 Unknown Rx Clopidogrel [Plavix] 75 mg PO QDAY 30 Days #30 tablet 03/09/19 Unknown Rx Furosemide [Lasix] 20 mg PO QDAY #30 tablet 03/09/19 Unknown Rx Cyclobenzaprine [Flexeril] 10 mg PO QHS #20 tablet 05/06/19 Unknown Rx Albuterol INH(or & Nicu Only) 2 puff IH Q4HR PRN #1 inhalation 05/25/19 Unknown Rx [ProAir HFA Inhaler] Azithromycin [Zithromax Z-FABIOLA] 250 mg PO DAILY #6 tablet 05/25/19 Unknown Rx predniSONE [Deltasone] 20 mg PO DAILY #15 tablet 05/25/19 Unknown Rx ED Physical Exam - General Limitations: No Limitations General appearance: alert, in no apparent distress - Head Head exam: Present: atraumatic, normocephalic - Eye Eye exam: Present: normal appearance, PERRL, EOMI - ENT ENT exam: Present: mucous membranes moist - Neck Neck exam: Present: normal inspection - Respiratory Respiratory exam: Present: wheezes (mild expiratory wheezing ). Absent: respiratory distress - Cardiovascular Cardiovascular Exam: Present: regular rate, normal rhythm. Absent: systolic murmur, diastolic murmur, rubs, gallop - GI/Abdominal GI/Abdominal exam: Present: soft, normal bowel sounds - Rectal Rectal exam: Present: deferred - Extremities Exam Extremities exam: Present: normal inspection - Back Exam Back exam: Present: normal inspection - Neurological Exam Neurological exam: Present: alert, oriented X3 - Psychiatric Psychiatric exam: Present: normal affect, normal mood - Skin Skin exam: Present: warm, dry, intact, normal color. Absent: rash ED Course Vital Signs 05/25/19 05/25/19 05/25/19 04:53 04:59 05:00 Temperature 97.9 F Pulse Rate 101 H 98 H Pulse Rate [ Anterior Bilateral Throughout] Pulse Rate [ Posterior Bilateral Throughout] Respiratory 15 15 14 Rate Respiratory Rate [Anterior Bilateral Throughout] Respiratory Rate [Posterior Bilateral Throughout] Blood Pressure 111/76 104/71 Blood Pressure 111/76 [Left] O2 Sat by Pulse 98 98 98 Oximetry 05/25/19 05/25/19 05/25/19 05:05 05:30 06:30 Temperature Pulse Rate 101 H 97 H Pulse Rate [ 100 H Anterior Bilateral Throughout] Pulse Rate [ 90 Posterior Bilateral Throughout] Respiratory 17 18 Rate Respiratory 16 Rate [Anterior Bilateral Throughout] Respiratory 20 Rate [Posterior Bilateral Throughout] Blood Pressure 104/71 103/63 Blood Pressure [Left] O2 Sat by Pulse 90 93 Oximetry 05/25/19 07:19 Temperature Pulse Rate 94 H Pulse Rate [ Anterior Bilateral Throughout] Pulse Rate [ Posterior Bilateral Throughout] Respiratory 18 Rate Respiratory Rate [Anterior Bilateral Throughout] Respiratory Rate [Posterior Bilateral Throughout] Blood Pressure Blood Pressure 113/71 [Left] O2 Sat by Pulse 95 Oximetry ED Medical Decision Making - Lab Data Result diagrams: 05/25/19 04:56 05/25/19 04:56 - Medical Decision Making Symptoms improved after breathing treatment Previous cardiac cath reviewed from January 31, 2019 recommendation suggesting continue maximal medical therapy for treatment of coronary artery disease Discussed results with patient O2 sats without oxygen ranged from 94 to 97% on room air Critical care attestation.: If time is entered above; I have spent that time in minutes in the direct care of this critically ill patient, excluding procedure time. ED Disposition Clinical Impression: COPD exacerbation Disposition: DC-01 TO HOME OR SELFCARE Is pt being admited?: No Does the pt Need Aspirin: No Condition: Stable Instructions: Chronic Obstructive Pulmonary Disease (ED) Referrals: TRUONG CANNON MD [Primary Care Provider] - 3-5 Days [facility] [Provider Group] - 3-5 Days [facility] [Provider Group] - 3-5 Days [facility] [Outside] - 3-5 Days Time of Disposition: 09:30
[2019-05-25] MEDS ORDERED: ACETAMINOPHEN 500 MG TAB PO ONE (09:28)
[2019-05-25 09:50] VITALS: BP 109/71
== END 2019-05-25 09:57 | disposition home or self-care (01) ==
LOC: ED 04:44
DX: J44.1 Chronic obstructive pulmonary disease with (acute) exacerbation (principal); I11.0 Hypertensive heart disease with heart failure; I50.9 Heart failure, unspecified; M19.90 Unspecified osteoarthritis, unspecified site; F17.200 Nicotine dependence, unspecified, uncomplicated
CPT/HCPCS: 36415; 71045; 80053; 82550; 83735; 83880; 84484; 85027; 85610; 85730; 93005; 93010; 94640; 94644

== ENCOUNTER 2019-05-30 07:57 | Emergency (ER) | payer OTHER ==
[2019-05-30] MEDS ORDERED: ASPIRIN 325 MG TAB PO ONE (08:06)
--- NOTE | 2019-05-30 08:35 | XRay Report ---
CHEST PA AND LATERAL VIEWS INDICATION: MAIN: Chest Pain X 1DAY; HX OF COPD. COMPARISON: 05/25/2019 FINDINGS: Support devices: None Heart: Normal and unchanged Lungs/Pleura: There has now developed diffuse interstitial disease, apparently interstitial pulmonary edema. No significant pleural fluid. IMPRESSION: 1. Interval development of mild interstitial pulmonary edema. Signer Name: Stas Baig MD Signed: 05/30/2019 8:31 AM Workstation Name: [id number]
[2019-05-30 09:25] LABS: Basophils # (Auto) 0.1 K/mm3 (0.0-0.1); Eosinophils # (Auto) 0.2 K/mm3 (0.0-0.4); Eosinophils % (Auto) 3.1 % (0.0-4.3); Hematocrit 42.2 % (35.5-45.6); Hemoglobin 13.7 gm/dl (11.8-15.2); Lymphocytes # (Auto) 2.2 K/mm3 (1.2-5.4); Lymphocytes % (Auto) 29.3 % (13.4-35.0); Mean Corpuscular HGB Conc 33 % (32-34); Mean Corpuscular Volume 87 fl (84-94); Monocytes # (Auto) 0.6 K/mm3 (0.0-0.8); Monocytes % (Auto) 8.4 % (0.0-7.3); Platelet Count 213 K/mm3 (140-440); Red Blood Count 4.84 M/mm3 (3.65-5.03); Red Cell Distribution Width 15.1 % (13.2-15.2)
[2019-05-30 09:40] LABS: BUN/Creatinine Ratio 9; Blood Urea Nitrogen 9 mg/dL (9-20); Calcium 9.1 mg/dL (8.4-10.2); Hemolysis Index 9
--- NOTE | 2019-05-30 11:00 | Emergency Department Report ---
ED Chest Pain HPI - General Chief Complaint: Dyspnea/Respdistress Stated Complaint: CHEST PAIN/HENRY Time Seen by Provider: 05/30/19 10:59 Source: patient Mode of arrival: Ambulatory Limitations: No Limitations - History of Present Illness Initial Comments: This is a 63-year-old man with a history of cardiomyopathy. He is previously prescribed lisinopril and Lasix. He admits that he is out of these medicines. He has not seen a leaflet or newspaper deliverer for some time. He presents complaining of shortness of breath for the last approximately 2 days. He has not had paroxysmal nocturnal dyspnea. He has had occasional cough. He denies chest pain except when he "coughs 3 times in a row". He states it only lasts for "a second or 2" after his cough. He does not complain of nausea vomiting sweating. He denies leg pain or swelling. He denies hemoptysis. He has no history of VTE. He denies chest pain today. 01/10 discharge summary; Hospitalization Condition: Stable Hospital course: Patient is a 63-year-old man with a history of tobacco dependency and cocaine abuse who presented to [facility] with chest pain. He was admitted to the hospital, ACS was ruled out. He was planned for Lexiscan stress test, however, the stress lab cameras was not working properly on 12/30/18. He was to be discharge but he had on-going chest pains and severe. right sided headaches. So, the stress test was done on Saturday and it was abnormal. 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 [facility] Conclusions: Single Vessel CAD with 50% in-stent restenosis of the proximal LAD, IFR of the in-stent re-stenosis of the proximal LAD was non- significant at 0.95, Recommendations: Recommend continue maximal medical therapy for treatment of CAD Last cardiology consult: Atypical chest pain, 3 sets of trop neg x 3 CMP out of proportion to CAD Cath 2016 single vessel 50-60% LAD disease Echo 08/2018 EF 20-25%, severe LV dysfunction HTN CVA COPD Plan he is feeling better today continue medical therapy today, he states he had recent stress but no record here. will perform lexiscan MPI in AM. - Related Data Previous Rx's Medication Instructions Recorded Last Taken Type lisinopriL [Zestril TAB] 10 mg PO QDAY #30 tablet 12/29/18 Unknown Rx carBAMazepine [TEGretol] 100 mg PO BID #60 tab.chew 12/31/18 Unknown Rx Albuterol INH(or & Nicu Only) 2 puff IH QID PRN #8.5 gram 03/09/19 Unknown Rx [ProAir HFA Inhaler] Aspirin [Aspirin BABY CHEW TAB] 81 mg PO QDAY #100 tab.chew 03/09/19 Unknown Rx AtorvaSTATin [Lipitor] 40 mg PO QHS #30 tablet 03/09/19 Unknown Rx Azithromycin [Zithromax] 250 mg PO DAILY #5 tablet 03/09/19 Unknown Rx Clopidogrel [Plavix] 75 mg PO QDAY 30 Days #30 tablet 03/09/19 Unknown Rx Furosemide [Lasix] 20 mg PO QDAY #30 tablet 03/09/19 Unknown Rx Cyclobenzaprine [Flexeril] 10 mg PO QHS #20 tablet 05/06/19 Unknown Rx Albuterol INH(or & Nicu Only) 2 puff IH Q4HR PRN #1 inhalation 05/25/19 Unknown Rx [ProAir HFA Inhaler] Azithromycin [Zithromax Z-FABIOLA] 250 mg PO DAILY #6 tablet 05/25/19 Unknown Rx predniSONE [Deltasone] 20 mg PO DAILY #15 tablet 05/25/19 Unknown Rx Lisinopril/Hydrochlorothiazide 1 each PO DAILY #30 tablet 05/30/19 Unknown Rx [Zestoretic 10-12.5 mg Tablet] Allergies Allergy/AdvReac Type Severity Reaction Status Date / Time No Known Allergies Allergy Verified 09/16/18 12:19 Heart Score - HEART Score History: Slightly suspicious EKG: Normal Age: 45-65 Risk factors: > 3 risk factors or hx of atherosclerotic disease Troponin: < normal limit HEART Score: 3 - Critical Actions Critical Actions: 0-3 pts:0.9-1.7%risk of adverse cardiac event.Candidate for discharge ED Review of Systems ROS: Stated complaint: CHEST PAIN/HENRY Other details as noted in HPI Constitutional: denies: chills, fever Eyes: denies: eye pain, eye discharge, vision change ENT: denies: ear pain, throat pain Respiratory: shortness of breath. denies: cough, wheezing Cardiovascular: as per HPI. denies: palpitations Endocrine: no symptoms reported Gastrointestinal: denies: abdominal pain, nausea, diarrhea Genitourinary: denies: urgency, dysuria Musculoskeletal: denies: back pain, joint swelling, arthralgia Skin: denies: rash, lesions Neurological: denies: headache, weakness, paresthesias Psychiatric: denies: anxiety, depression Hematological/Lymphatic: denies: easy bleeding, easy bruising ED Past Medical Hx - Past Medical History Previous Medical History?: Yes Hx Hypertension: Yes Hx CVA: Yes Hx Heart Attack/AMI: Yes Hx Congestive Heart Failure: Yes Hx Diabetes: No Hx Arthritis: Yes Hx Asthma: No Hx COPD: Yes Additional medical history: "sepsis" 09/2014 - Surgical History Past Surgical History?: Yes Hx Coronary Stent: Yes Additional Surgical History: Peptic Ulcer surgery. 2 Knee surgeries - Social History Smoking Status: Never Smoker Substance Use Type: None - Medications Home Medications: Home Medications Medication Instructions Recorded Confirmed Last Taken Type lisinopriL [Zestril TAB] 10 mg PO QDAY #30 tablet 12/29/18 Unknown Rx carBAMazepine [TEGretol] 100 mg PO BID #60 tab.chew 12/31/18 Unknown Rx Albuterol INH(or & Nicu Only) 2 puff IH QID PRN #8.5 gram 03/09/19 Unknown Rx [ProAir HFA Inhaler] Aspirin [Aspirin BABY CHEW TAB] 81 mg PO QDAY #100 tab.chew 03/09/19 Unknown Rx AtorvaSTATin [Lipitor] 40 mg PO QHS #30 tablet 03/09/19 Unknown Rx Azithromycin [Zithromax] 250 mg PO DAILY #5 tablet 03/09/19 Unknown Rx Clopidogrel [Plavix] 75 mg PO QDAY 30 Days #30 tablet 03/09/19 Unknown Rx Furosemide [Lasix] 20 mg PO QDAY #30 tablet 03/09/19 Unknown Rx Cyclobenzaprine [Flexeril] 10 mg PO QHS #20 tablet 05/06/19 Unknown Rx Albuterol INH(or & Nicu Only) 2 puff IH Q4HR PRN #1 inhalation 05/25/19 Unknown Rx [ProAir HFA Inhaler] Azithromycin [Zithromax Z-FABIOLA] 250 mg PO DAILY #6 tablet 05/25/19 Unknown Rx predniSONE [Deltasone] 20 mg PO DAILY #15 tablet 05/25/19 Unknown Rx Lisinopril/Hydrochlorothiazide 1 each PO DAILY #30 tablet 05/30/19 Unknown Rx [Zestoretic 10-12.5 mg Tablet] ED Physical Exam - General Limitations: No Limitations General appearance: alert, in no apparent distress - Head Head exam: Present: atraumatic, normocephalic - Eye Eye exam: Present: normal appearance. Absent: scleral icterus - ENT ENT exam: Present: mucous membranes moist - Neck Neck exam: Present: normal inspection - Respiratory Respiratory exam: Present: normal lung sounds bilaterally. Absent: respiratory distress - Cardiovascular Cardiovascular Exam: Present: regular rate, normal rhythm. Absent: systolic murmur, diastolic murmur, rubs, gallop - GI/Abdominal GI/Abdominal exam: Present: soft, normal bowel sounds. Absent: distended, tenderness, guarding, rebound - Rectal Rectal exam: Present: deferred - Extremities Exam Extremities exam: Present: normal inspection, normal capillary refill. Absent: pedal edema, calf tenderness - Back Exam Back exam: Present: normal inspection - Neurological Exam Neurological exam: Present: alert, oriented X3, CN II-XII intact. Absent: motor sensory deficit - Psychiatric Psychiatric exam: Present: normal affect, normal mood - Skin Skin exam: Present: warm, dry, intact, normal color. Absent: rash ED Course Vital Signs 05/30/19 05/30/19 05/30/19 08:11 11:24 12:05 Temperature 97.6 F Pulse Rate 88 74 98 H Respiratory 18 18 18 Rate Blood Pressure 134/90 Blood Pressure 121/65 109/89 [Right] O2 Sat by Pulse 98 100 100 Oximetry - Reevaluation(s) Reevaluation #1: Patient diuresed well in the emergency department with 40 mg of Lasix IV. He was not short of breath. He felt ready for discharge. His blood pressure was normotensive. He will be placed on lisinopril/HCTZ. He is encouraged to follow-up with primary care and his leaflet or newspaper deliverer. He is discharged in stable condition. 05/30/19 13:43 CHRIS score - Chris Score Age > 65: (0) No Aspirin use within the Past 7 Days: (1) Yes 3 or more CAD Risk Factors: (1) Yes 2 or more Angina events in past 24 hrs: (1) Yes Known CAD with more than 50% Stenosis: (1) Yes Elevated Cardiac Markers: (0) No ST Deviation Greater than 0.5mm: (0) No CHRIS Score: 4 ED Medical Decision Making - Lab Data Result diagrams: 05/30/19 08:54 05/30/19 08:54 Laboratory Results - last 24 hr 05/30/19 05/30/19 08:54 08:54 WBC 7.4 RBC 4.84 Hgb 13.7 Hct 42.2 MCV 87 MCH 28 MCHC 33 RDW 15.1 Plt Count 213 Lymph % (Auto) 29.3 [place] % (Auto) 8.4 H Eos % (Auto) 3.1 Baso % (Auto) 1.0 Lymph # 2.2 [place] # 0.6 Eos # 0.2 Baso # 0.1 Seg Neutrophils % 58.2 Seg Neutrophils # 4.3 Sodium 143 Potassium 4.0 Chloride 107.1 H Carbon Dioxide 21 L Anion Gap 19 BUN 9 Creatinine 1.0 Estimated GFR > 60 BUN/Creatinine Ratio 9 Glucose 113 H Calcium 9.1 Troponin T < 0.010 Laboratory Results - last 24 hr 05/30/19 05/30/19 05/30/19 08:54 08:54 11:01 WBC 7.4 RBC 4.84 Hgb 13.7 Hct 42.2 MCV 87 MCH 28 MCHC 33 RDW 15.1 Plt Count 213 Lymph % (Auto) 29.3 [place] % (Auto) 8.4 H Eos % (Auto) 3.1 Baso % (Auto) 1.0 Lymph # 2.2 [place] # 0.6 Eos # 0.2 Baso # 0.1 Seg Neutrophils % 58.2 Seg Neutrophils # 4.3 PT INR APTT Sodium 143 Potassium 4.0 Chloride 107.1 H Carbon Dioxide 21 L Anion Gap 19 BUN 9 Creatinine 1.0 Estimated GFR > 60 BUN/Creatinine Ratio 9 Glucose 113 H Calcium 9.1 Magnesium Total Bilirubin Direct Bilirubin AST ALT Alkaline Phosphatase Total Creatine Kinase CK-MB (CK-2) CK-MB (CK-2) Rel Index Troponin T < 0.010 < 0.010 NT-Pro-B Natriuret Pep Total Protein Albumin Albumin/Globulin Ratio 05/30/19 05/30/19 05/30/19 11:16 11:16 11:16 WBC RBC Hgb Hct MCV MCH MCHC RDW Plt Count Lymph % (Auto) [place] % (Auto) Eos % (Auto) Baso % (Auto) Lymph # [place] # Eos # Baso # Seg Neutrophils % Seg Neutrophils # PT 13.5 INR 1.02 APTT 27.6 Sodium Potassium Chloride Carbon Dioxide Anion Gap BUN Creatinine Estimated GFR BUN/Creatinine Ratio Glucose Calcium Magnesium 2.00 Total Bilirubin 0.40 Direct Bilirubin < 0.2 AST 11 ALT 12 Alkaline Phosphatase 73 Total Creatine Kinase 56 CK-MB (CK-2) 2.3 CK-MB (CK-2) Rel Index 4.1 H Troponin T < 0.010 NT-Pro-B Natriuret Pep 1021 H Total Protein 6.1 L Albumin 3.7 L Albumin/Globulin Ratio 1.5 - EKG Data -: EKG Interpreted by Me EKG shows normal: sinus rhythm, axis, intervals, QRS complexes, ST-T waves - EKG Data Interpretation: nonspecific ST-T wave chiara, other (Low voltage. Probable old inferior zone. Left atrial abnormality. No acute ischemic changes. Normal axis.) - Radiology Data Radiology results: image reviewed (Chest x-ray consistent with congestive heart failure not severe) Critical care attestation.: If time is entered above; I have spent that time in minutes in the direct care of this critically ill patient, excluding procedure time. ED Disposition Clinical Impression: Atypical chest pain Congestive heart failure Qualifiers: Heart failure type: unspecified Heart failure chronicity: acute on chronic Qualified Code(s): I50.9 - Heart failure, unspecified Disposition: DC-01 TO HOME OR SELFCARE Is pt being admited?: No Does the pt Need Aspirin: No Condition: Stable Instructions: Chest Pain (ED) Additional Instructions: Limit your salt and fluid intake. Rx as directed. Follow-up with leaflet or newspaper deliverer and primary care clinic. Prescriptions: Lisinopril/Hydrochlorothiazide [Zestoretic 10-12.5 mg Tablet] 1 each PO DAILY #30 tablet Referrals: TRUONG CANNON MD [Primary Care Provider] - 2-3 Days Time of Disposition: 13:44
[2019-05-30] MEDS ORDERED: FUROSEMIDE 40 MG/4 ML INJ IV ONE (11:04)
[2019-05-30 11:40] LABS: INR 1.02 (0.87-1.13); Partial Thromboplastin Time 27.6 Sec. (24.2-36.6)
[2019-05-30 11:47] LABS: Creatine Kinase MB 2.3 ng/mL (0.0-4.0)
[2019-05-30 11:48] LABS: Alanine Aminotransferase 12 units/L (7-56); Albumin 3.7 g/dL (3.9-5)
[2019-05-30 11:49] LABS: Bilirubin,Direct < 0.2 mg/dL (0-0.2)
[2019-05-30] MEDS ORDERED: ASPIRIN 325 MG TAB ONE (12:02)
[2019-05-30 15:08] VITALS: BP 136/67
== END 2019-05-30 15:09 | disposition home or self-care (01) ==
LOC: ED 07:57
DX: I11.0 Hypertensive heart disease with heart failure (principal); I50.9 Heart failure, unspecified; I25.2 Old myocardial infarction; J44.9 Chronic obstructive pulmonary disease, unspecified; Z95.818 Presence of other cardiac implants and grafts; Z98.890 Other specified postprocedural states; Z86.73 Personal history of transient ischemic attack (TIA), and cerebral infarction without residual deficits
CPT/HCPCS: 36415; 71046; 80048; 80076; 82550; 82553; 83735; 83880; 84484; 85025; 85610; 85730; 93005; 93010; 96374; 99284; J1940

== ENCOUNTER 2019-06-23 08:51 | Inpatient (IN) | payer OTHER ==
--- NOTE | 2019-06-23 09:45 | Emergency Department Report ---
ED Shortness of Breath HPI - General Chief Complaint: Dyspnea/Respdistress Stated Complaint: COPD/HENRY Time Seen by Provider: 06/23/19 09:30 Source: patient, old records reviewed Mode of arrival: Ambulatory Limitations: No Limitations - History of Present Illness Initial Comments: 63-year-old male with a past medical history of COPD not on home oxygen, CAD with stent placement, crack cocaine abuse, cardiomyopathy with EF of 20 to 25% not currently on a diuretic presents to the hospital complains of shortness of breath since last night. Patient has chronic 3 pillow orthopnea which worsened last night with PND. Patient complains of the chronic cough that is unchanged. Cough is mostly dry and occasionally productive. Patient denies fever or known sick contact and has been attempting to self isolate with exception of going to the grocery store. He lives with his and son who did not have respiratory symptoms. No recent travel reported. Patient denies calf tenderness or leg edema. As per medical record patient has a history of crack cocaine abuse and alcohol dependence. Patient continues to smoke cigarettes Last cardiac cath on record from December 2018 - Related Data Previous Rx's Medication Instructions Recorded Last Taken Type lisinopriL [Zestril TAB] 10 mg PO QDAY #30 tablet 12/29/18 Unknown Rx carBAMazepine [TEGretol] 100 mg PO BID #60 tab.chew 12/31/18 Unknown Rx Albuterol INH(or & Nicu Only) 2 puff IH QID PRN #8.5 gram 03/09/19 Unknown Rx [ProAir HFA Inhaler] Aspirin [Aspirin BABY CHEW TAB] 81 mg PO QDAY #100 tab.chew 03/09/19 Unknown Rx AtorvaSTATin [Lipitor] 40 mg PO QHS #30 tablet 03/09/19 Unknown Rx Azithromycin [Zithromax] 250 mg PO DAILY #5 tablet 03/09/19 Unknown Rx Clopidogrel [Plavix] 75 mg PO QDAY 30 Days #30 tablet 03/09/19 Unknown Rx Furosemide [Lasix] 20 mg PO QDAY #30 tablet 03/09/19 Unknown Rx Cyclobenzaprine [Flexeril] 10 mg PO QHS #20 tablet 05/06/19 Unknown Rx Albuterol INH(or & Nicu Only) 2 puff IH Q4HR PRN #1 inhalation 05/25/19 Unknown Rx [ProAir HFA Inhaler] Azithromycin [Zithromax Z-FABIOLA] 250 mg PO DAILY #6 tablet 05/25/19 Unknown Rx predniSONE [Deltasone] 20 mg PO DAILY #15 tablet 05/25/19 Unknown Rx Lisinopril/Hydrochlorothiazide 1 each PO DAILY #30 tablet 05/30/19 Unknown Rx [Zestoretic 10-12.5 mg Tablet] Allergies Allergy/AdvReac Type Severity Reaction Status Date / Time No Known Allergies Allergy Verified 06/23/19 08:58 ED Review of Systems ROS: Stated complaint: COPD/HENRY Other details as noted in HPI Comment: All other systems reviewed and negative ED Past Medical Hx - Past Medical History Previous Medical History?: Yes Hx Hypertension: Yes Hx CVA: Yes Hx Heart Attack/AMI: Yes Hx Congestive Heart Failure: Yes Hx Diabetes: No Hx Arthritis: Yes Hx Asthma: No Hx COPD: Yes Additional medical history: "sepsis" 09/2014 - Surgical History Past Surgical History?: Yes Hx Coronary Stent: Yes Additional Surgical History: Peptic Ulcer surgery. 2 Knee surgeries - Social History Smoking Status: Current Every Day Smoker Substance Use Type: None - Medications Home Medications: Home Medications Medication Instructions Recorded Confirmed Last Taken Type lisinopriL [Zestril TAB] 10 mg PO QDAY #30 tablet 12/29/18 Unknown Rx carBAMazepine [TEGretol] 100 mg PO BID #60 tab.chew 12/31/18 Unknown Rx Albuterol INH(or & Nicu Only) 2 puff IH QID PRN #8.5 gram 03/09/19 Unknown Rx [ProAir HFA Inhaler] Aspirin [Aspirin BABY CHEW TAB] 81 mg PO QDAY #100 tab.chew 03/09/19 Unknown Rx AtorvaSTATin [Lipitor] 40 mg PO QHS #30 tablet 03/09/19 Unknown Rx Azithromycin [Zithromax] 250 mg PO DAILY #5 tablet 03/09/19 Unknown Rx Clopidogrel [Plavix] 75 mg PO QDAY 30 Days #30 tablet 03/09/19 Unknown Rx Furosemide [Lasix] 20 mg PO QDAY #30 tablet 03/09/19 Unknown Rx Cyclobenzaprine [Flexeril] 10 mg PO QHS #20 tablet 05/06/19 Unknown Rx Albuterol INH(or & Nicu Only) 2 puff IH Q4HR PRN #1 inhalation 05/25/19 Unknown Rx [ProAir HFA Inhaler] Azithromycin [Zithromax Z-FABIOLA] 250 mg PO DAILY #6 tablet 05/25/19 Unknown Rx predniSONE [Deltasone] 20 mg PO DAILY #15 tablet 05/25/19 Unknown Rx Lisinopril/Hydrochlorothiazide 1 each PO DAILY #30 tablet 05/30/19 Unknown Rx [Zestoretic 10-12.5 mg Tablet] ED Physical Exam - General Limitations: No Limitations - Other Other exam information: General: No acute distress Head: Atraumatic Eyes: normal appearance ENT: Moist mucous membranes Neck: Normal appearance, no midline tenderness Chest: Mild bibasilar crackles CV: Regular rate and rhythm Abdomen: Soft, normal bowel sounds, nontender, nondistended, no rebound or guarding Back: Normal inspection Extremity: Normal inspection, full range of motion, no calf tenderness or leg edema Neuro: Alert O x 3, no facial asymmetry, speech clear, no gross motor sensory deficit Psych: Appropriate behavior Skin: No rash ED Course Vital Signs 06/23/19 06/23/19 06/23/19 08:57 09:29 09:30 Temperature 97.9 F Pulse Rate 100 H 100 H 95 H Respiratory 24 23 21 Rate Blood Pressure 112/80 111/85 O2 Sat by Pulse 100 96 96 Oximetry 06/23/19 06/23/19 06/23/19 09:45 10:01 10:08 Temperature Pulse Rate 93 H 102 H Respiratory 22 22 23 Rate Blood Pressure 111/79 111/79 O2 Sat by Pulse 97 97 97 Oximetry 06/23/19 06/23/19 06/23/19 10:15 10:30 10:46 Temperature Pulse Rate 98 H 100 H Respiratory 22 24 30 H Rate Blood Pressure 112/78 103/85 137/101 O2 Sat by Pulse 94 97 91 Oximetry 06/23/19 06/23/19 11:00 11:16 Temperature Pulse Rate 119 H 123 H Respiratory 28 H 31 H Rate Blood Pressure 205/153 179/116 O2 Sat by Pulse 92 91 Oximetry - Reevaluation(s) Reevaluation #1: 06/23/19 11:23 Nurse reported to me that patient developed some increased respiratory distress which appeared to be like anxiety prior to Lasix. After Lasix patient had about 200 mL urine output patient developed increased respiratory distress with tachypnea, expiratory wheezing, tachycardia, room air sat 88-90%, and hypertension. Stat Decadron 20 mg IV ordered in case this was an allergic reaction to the IV Lasix. Patient placed on stat BiPAP orders with our continuous albuterol and Atrovent ED Medical Decision Making - Lab Data Result diagrams: 06/23/19 09:43 06/23/19 09:43 Lab Results 06/23/19 06/23/19 Range/Units 09:43 09:43 WBC 7.2 (4.5-11.0) K/mm3 RBC 4.73 (3.65-5.03) M/mm3 Hgb 13.4 (11.8-15.2) gm/dl Hct 41.1 (35.5-45.6) % MCV 87 (84-94) fl MCH 28 (28-32) pg MCHC 33 (32-34) % RDW 16.3 H (13.2-15.2) % Plt Count 207 (140-440) K/mm3 Lymph % (Auto) 36.3 H (13.4-35.0) % [place] % (Auto) 7.3 (0.0-7.3) % Eos % (Auto) 4.0 (0.0-4.3) % Baso % (Auto) 1.2 (0.0-1.8) % Lymph # 2.6 (1.2-5.4) K/mm3 [place] # 0.5 (0.0-0.8) K/mm3 Eos # 0.3 (0.0-0.4) K/mm3 Baso # 0.1 (0.0-0.1) K/mm3 Seg Neutrophils % 51.2 (40.0-70.0) % Seg Neutrophils # 3.7 (1.8-7.7) K/mm3 Sodium 143 (137-145) mmol/L Potassium 3.9 (3.6-5.0) mmol/L Chloride 107.0 (98-107) mmol/L Carbon Dioxide 21 L (22-30) mmol/L Anion Gap 19 mmol/L BUN 10 (9-20) mg/dL Creatinine 0.8 (0.8-1.5) mg/dL Estimated GFR > 60 ml/min BUN/Creatinine Ratio 13 % Glucose 100 (75-100) mg/dL Calcium 9.1 (8.4-10.2) mg/dL Total Bilirubin 0.30 (0.1-1.2) mg/dL AST 12 (5-40) units/L ALT 9 (7-56) units/L Alkaline Phosphatase 82 (35-129) units/L Troponin T < 0.010 (0.00-0.029) ng/mL NT-Pro-B Natriuret Pep 713.1 (0-900) pg/mL Total Protein 6.6 (6.3-8.2) g/dL Albumin 3.9 (3.9-5) g/dL Albumin/Globulin Ratio 1.4 % - EKG Data -: EKG Interpreted by Me (inferior infarct) EKG shows normal: sinus rhythm, ST-T waves (no smtei) Rate: normal (92) - EKG Data When compared to previous EKG there are: no significant change - Radiology Data Radiology results: report reviewed CHEST 2 VIEWS INDICATION / CLINICAL INFORMATION: Shortness of breath. COMPARISON: Chest x-ray on 05/30/2019 FINDINGS: SUPPORT DEVICES: None. HEART / MEDIASTINUM: No significant abnormality. LUNGS / PLEURA: Stable diffuse bilateral reticular interstitial prominence probably reflecting mild edema. No pneumothorax. ADDITIONAL FINDINGS: No significant additional findings. IMPRESSION: 1. Stable diffuse bilateral reticular interstitial opacification likely reflecting pulmonary edema. - Medical Decision Making Patient presents to the hospital with symptoms and clinical findings of CHF exacerbation. During ED evaluation he developed acute distress after IV Lasix administration. Patient also received p.o. potassium and Tessalon Perles. Patient had audible expiratory wheezing, tachypnea, accessory muscle use co mplaining of feeling like his throat was tight. Patient received Decadron 20 mg, emergent BiPAP support, and albuterol 10 Atrovent 1 mg with improvement in symptoms. Patient will require admission to the hospitalist service for further treatment. Dr. Cummins informed - Differential Diagnosis COPD, CHF, pneumonia, bronchitis, allergic reaction Critical Care Time: No Critical care attestation.: If time is entered above; I have spent that time in minutes in the direct care of this critically ill patient, excluding procedure time. ED Disposition Clinical Impression: CHF exacerbation, COPD exacerbation Disposition: OP ADMIT IP TO THIS HOSP Is pt being admited?: Yes Condition: Stable Time of Disposition: 11:25 (Dr Cummins/hosp)
[2019-06-23 10:02] LABS: Basophils # (Auto) 0.1 K/mm3 (0.0-0.1); Basophils % (Auto) 1.2 % (0.0-1.8); Eosinophils # (Auto) 0.3 K/mm3 (0.0-0.4); Hematocrit 41.1 % (35.5-45.6); Hemoglobin 13.4 gm/dl (11.8-15.2); Lymphocytes # (Auto) 2.6 K/mm3 (1.2-5.4); Lymphocytes % (Auto) 36.3 % (13.4-35.0); Mean Corpuscular HGB Conc 33 % (32-34); Mean Corpuscular Volume 87 fl (84-94); Monocytes # (Auto) 0.5 K/mm3 (0.0-0.8); Monocytes % (Auto) 7.3 % (0.0-7.3); Platelet Count 207 K/mm3 (140-440); Red Blood Count 4.73 M/mm3 (3.65-5.03); Red Cell Distribution Width 16.3 % (13.2-15.2)
--- NOTE | 2019-06-23 10:20 | XRay Report ---
CHEST 2 VIEWS INDICATION / CLINICAL INFORMATION: Shortness of breath. COMPARISON: Chest x-ray on 05/30/2019 FINDINGS: SUPPORT DEVICES: None. HEART / MEDIASTINUM: No significant abnormality. LUNGS / PLEURA: Stable diffuse bilateral reticular interstitial prominence probably reflecting mild e tyra. No pneumothorax. ADDITIONAL FINDINGS: No significant additional findings. IMPRESSION: 1. Stable diffuse bilateral reticular interstitial opacification likely reflecting pulmonary edema. Signer Name: Tad Burnett MD Signed: 06/23/2019 10:15 AM Workstation Name: [id number]
[2019-06-23 10:27] LABS: Alanine Aminotransferase 9 units/L (7-56); Albumin 3.9 g/dL (3.9-5); BUN/Creatinine Ratio 13; Blood Urea Nitrogen 10 mg/dL (9-20); Calcium 9.1 mg/dL (8.4-10.2); Hemolysis Index 16
[2019-06-23] MEDS ORDERED: FUROSEMIDE 40 MG/4 ML INJ IV ONE (10:37)
[2019-06-23] MEDS ORDERED: POTASSIUM CHLORIDE ER 20 MEQ TAB PO ONE (10:38)
[2019-06-23] MEDS ORDERED: BENZONATATE 100 MG CAP PO ONE (10:55)
[2019-06-23] MEDS ORDERED: dexAMETHasone 20 MG/5 ML VIAL ONE (11:08)
[2019-06-23] MEDS ORDERED: IPRATROPIUM 0.02% NEBU 2.5 ML IH ONE ×2 (11:10→12:40)
[2019-06-23] MEDS ORDERED: ALBUTEROL 2.5 MG/3 ML NEBU IH ONE ×2 (11:10→11:13)
[2019-06-23 11:26] LABS: Amphetamine Screen,Urine PRESUMPTIVE NEGATIVE; Benzodiazepines Screen,Urine PRESUMPTIVE NEGATIVE; Cannabinoid Screen,Urine PRESUMPTIVE NEGATIVE; Methadone Screen,Urine PRESUMPTIVE NEGATIVE; Opiate Screen,Urine PRESUMPTIVE NEGATIVE
--- NOTE | 2019-06-23 12:01 | History and Physical Report ---
History of Present Illness Chief complaint: I can hardly breathe History of present illness: 63 YO Male with Systolic/Diastolic CHF(EF 20%), Nicotine Dependence, CAD S/P Stent Placement, Medication Noncompliance, Dietary Noncompliance, Cocaine Dependence, COPD, HTN, OA, [place], CVA, Obesity presents to ED for evaluation. Patient states that he has experienced progressively worsening shortness of breath over the past 3 days. Patient states that he has experienced progressively worsening exercise tolerance, shortness of breath. Patient acknowledges orthopnea and paroxysmal nocturnal dyspnea, dyspnea on exertion, dy spnea at rest. Patient also acknowledges medication and dietary noncompliance. Patient reports that he has not taken his medication since he ran out several weeks ago. Patient transported to [facility] via private vehicle for further evaluation and care. Patient seen and evaluated in the emergency department. Lab and imaging studies reviewed. Patient found to have pulse oximetry of 88% while on supplemental oxygen in the emergency department, as well as laboratory findings and clinical exam findings consistent with CHF decompensation, as well as acute hypoxemic respiratory failure. Patient placed on supplemental oxygen with mild improvement of pulse oximetry and was subsequently placed on no ninvasive positive pressure ventilation in the emergency department. Patient denies fever, chills, chest pain, productive cough, skin rash, unilateral leg swelling, hemoptysis, prolonged travel/immobility, individual/family history of DVT/PE/bleeding/blood clotting disorders, or known ill contacts. Patient placed in observation status and admitted to telemetry for further evaluation and care due to increased risk of cardiopulmonary decompensation. Patient initiated on CHF protocol. Patient treated with resumption of prehospital MAXINE inhibitor and beta-hebert therapy, as well as diuresis with Lasix. Prior admission on 03/08/2019 reviewed. All listed medication at time of admission has been reconciled. Echocardiogram from September 10 reviewed. Advanced care planning conducted in ED. Past History Past Medical History: acute [place], heart failure, hypertension, stroke, other (See HPI) Past Surgical History: total knee replacement, bowel surgery Social history: , lives with family, smoking, other (Cocaine dependence) Family history: CAD, hypertension Medications and Allergies Allergies Allergy/AdvReac Type Severity Reaction Status Date / Time No Known Allergies Allergy Verified 06/23/19 08:58 Home Medications Medication Instructions Recorded Confirmed Last Taken Type lisinopriL [Zestril TAB] 10 mg PO QDAY #30 tablet 12/29/18 Unknown Rx carBAMazepine [TEGretol] 100 mg PO BID #60 tab.chew 12/31/18 Unknown Rx Albuterol INH(or & Nicu Only) 2 puff IH QID PRN #8.5 gram 03/09/19 Unknown Rx [ProAir HFA Inhaler] Aspirin [Aspirin BABY CHEW TAB] 81 mg PO QDAY #100 tab.chew 03/09/19 Unknown Rx AtorvaSTATin [Lipitor] 40 mg PO QHS #30 tablet 03/09/19 Unknown Rx Azithromycin [Zithromax] 250 mg PO DAILY #5 tablet 03/09/19 Unknown Rx Clopidogrel [Plavix] 75 mg PO QDAY 30 Days #30 tablet 03/09/19 Unknown Rx Furosemide [Lasix] 20 mg PO QDAY #30 tablet 03/09/19 Unknown Rx Cyclobenzaprine [Flexeril] 10 mg PO QHS #20 tablet 05/06/19 Unknown Rx Albuterol INH(or & Nicu Only) 2 puff IH Q4HR PRN #1 inhalation 05/25/19 Unknown Rx [ProAir HFA Inhaler] Azithromycin [Zithromax Z-FABIOLA] 250 mg PO DAILY #6 tablet 05/25/19 Unknown Rx predniSONE [Deltasone] 20 mg PO DAILY #15 tablet 05/25/19 Unknown Rx Lisinopril/Hydrochlorothiazide 1 each PO DAILY #30 tablet 05/30/19 Unknown Rx [Zestoretic 10-12.5 mg Tablet] Review of Systems Constitutional: no weight loss, no weight gain, no fever, no chills, no weakness, no malaise Ears, nose, mouth and throat: no ear pain, no ear discharge, no tinnitis, no decreased hearing, no nose pain, no nasal congestion Cardiovascular: orthopnea, shortness of breath, dyspnea on exertion, paroxysmal nocturnal dyspnea, decreased exercise tolerance, no chest pain, no rapid/irregular heart beat, no syncope Respiratory: shortness of breath, no cough, no excessive sputum, no hemoptysis Gastrointestinal: no abdominal pain, no nausea, no vomiting, no diarrhea, no constipation Genitourinary Male: no hematuria, no flank pain, no discharge, no urinary frequency, no urinary hesitancy Rectal: no pain, no incontinence, no bleeding Musculoskeletal: no neck stiffness, no neck pain, no shooting arm pain, no arm numbness/tingling Integumentary: no rash, no pruritis, no redness, no sores, no wounds Neurological: no transient paralysis, no paralysis, no weakness, no parathesias, no numbness Psychiatric: no anxiety, no memory loss, no change in sleep habits, no sleep disturbances, no insomnia, no hypersomnia Endocrine: no cold intolerance, no heat intolerance, no polyphagia, no polydipsi a, no polyuria, no nocturia, no excessive sweating Hematologic/Lymphatic: no easy bruising, no easy bleeding, no lymphadenopathy, no lymphedema Allergic/Immunologic: no urticaria, no allergic rhinitis, no wheezing, no persistent infections, no anaphylaxis Exam - Constitutional Vitals: Temp Pulse Resp BP Pulse Ox 97.9 F 90 24 122/88 96 06/23/19 08:57 06/23/19 11:45 06/23/19 11:45 06/23/19 11:45 06/23/19 11:45 General appearance: Present: mild distress - EENT Eyes: Present: PERRL ENT: hearing intact, clear oral mucosa - Neck Neck: Present: supple, normal ROM, masses or JVD - Respiratory Respiratory effort: labored, pursed lips, accessory muscle use, stridor Respiratory: bilateral: diminished, rales - Cardiovascular Heart Sounds: Present: S1 & S2. Absent: rub, click - Extremities Extremities: pulses symmetrical, No edema Peripheral Pulses: within normal limits - Abdominal General gastrointestinal: Present: soft, non-tender, non-distended, normal bowel sounds Male genitourinary: Present: normal - Integumentary Integumentary: Present: clear, warm, dry - Musculoskeletal Musculoskeletal: generalized weakness - Psychiatric Psychiatric: appropriate mood/affect, intact judgment & insight - Neurologic Neurologic: CNII-XII intact, moves all extremities Results - Labs CBC & Chem 7: 06/23/19 09:43 06/23/19 09:43 Labs: Abnormal lab results 06/23/19 06/23/19 Range/Units 09:43 09:43 RDW 16.3 H (13.2-15.2) % Lymph % (Auto) 36.3 H (13.4-35.0) % Carbon Dioxide 21 L (22-30) mmol/L Assessment and Plan - Patient Problems (1) CHF (congestive heart failure) Current Visit: Yes Status: Acute Qualifiers: Heart failure type: combined systolic and diastolic Plan to address problem: Admit to telemetry, CHF protocol, strict I's/O, monitor urine output every shift, daily weight, BNP, supplemental oxygen, pulse oximetry, afterload reduction, blood pressure control, diuresis, echo from 08/2018 reviewed, thyroid panel, magnesium level, chest x-ray. (2) Acute hypoxemic respiratory failure Current Visit: Yes Status: Acute Plan to address problem: Supplemental oxygen, pulse oximetry, noninvasive positive pressure ventilation, chest x-ray, supportive care. (3) Hypertension Current Visit: Yes Status: Acute Qualifiers: Hypertension type: essential hypertension Qualified Code(s): I10 - Essential (primary) hypertension Plan to address problem: Monitor blood pressure every shift, continue medical management. (4) Coronary artery disease Current Visit: Yes Status: Acute Qualifiers: Associated angina: without angina Plan to address problem: Lipid panel, risk factor reduction, antiplatelet therapy, statin therapy. (5) Cocaine dependence Current Visit: Yes Status: Acute Qualifiers: Complication of substance-induced condition: uncomplicated Plan to address problem: Supportive care, outpatient substance abuse follow-up. Behavior change counseling, +15 minutes. (6) Nicotine dependence Current Visit: Yes Status: Acute Qualifiers: Nicotine product type: cigarettes Substance use status: in withdrawal Qualified Code(s): F17.213 - Nicotine dependence, cigarettes, with withdrawal Plan to address problem: Supportive care, smoking cessation counseling, +15 minutes. (7) Advance care planning Current Visit: Yes Status: Acute Plan to address problem: Patient is full code, disease education conducted, patient knowledges understanding instructions, patient informed that continued medication noncompliance will likely result in worsening disease, as well as early . Patient acknowledges that he will attempt to comply with his medication and diet in the future. Patient also acknowledges understanding and agreement with care plan. +30 minutes. (8) Osteoarthritis Current Visit: Yes Status: Acute Qualifiers: Laterality: bilateral Plan to address problem: Supportive care, NSAID therapy as tolerated, (9) History of stroke Current Visit: Yes Status: Acute Plan to address problem: Continue antiplatelet therapy, supportive care, risk factor reduction therapy. Continue statin therapy. (10) DVT prophylaxis Current Visit: No Status: Acute Plan to address problem: SCD to bilateral lower extremities while in bed, patient is ambulatory.
[2019-06-23] MEDS ORDERED: ONDANSETRON 4 MG/2 ML INJ IV PRN (12:02)
[2019-06-23] MEDS ORDERED: ALBUTEROL 2.5 MG/3 ML NEBU IH PRN (12:02)
[2019-06-23] MEDS ORDERED: ACETAMINOPHEN 325 MG TAB PO PRN (12:02)
[2019-06-23 12:14] LABS: Cocaine Screen,Urine PRESUMPTIVE POSITIVE
[2019-06-23] MEDS ORDERED: dexAMETHasone 20 MG in SODIUM CHLORIDE 0.9% 50 ML IV ONE (12:40)
[2019-06-23 14:24] LABS: Free T4 (Free Thyroxine) 1.21 ng/dL (0.76-1.46)
[2019-06-23] MEDS: FUROSEMIDE 20 MG/2 ML INJ IV SCH (17:41)
[2019-06-23] MEDS: CYCLOBENZAPRINE 10 MG TAB PO SCH (21:49)
[2019-06-23] MEDS: carBAMazepine 100 MG TAB CHEW PO SCH (21:51)
[2019-06-24 05:28] LABS: BUN/Creatinine Ratio 16; Blood Urea Nitrogen 13 mg/dL (9-20); Calcium 9.3 mg/dL (8.4-10.2); Hemolysis Index 9
[2019-06-24] MEDS: FUROSEMIDE 20 MG/2 ML INJ IV SCH ×2 (06:20→17:16)
[2019-06-24] MEDS: carBAMazepine 100 MG TAB CHEW PO SCH ×2 (09:49→21:39)
[2019-06-24] MEDS: ASPIRIN 81 MG TAB CHEW PO SCH (09:49)
[2019-06-24] MEDS: LISINOPRIL 10 MG TAB PO SCH (09:49)
[2019-06-24] MEDS: CLOPIDOGREL 75 MG TAB PO SCH (09:49)
[2019-06-24] MEDS ORDERED: NON-FORMULARY EACH (Lisinopril/Hydrochlorothiazide [Zestoretic 10-12.5 Mg Tablet] 1 EACH) PO SCH (10:00)
--- NOTE | 2019-06-24 14:18 | Progress Note ---
Assessment and Plan - Patient Problems (1) CHF (congestive heart failure) Current Visit: Yes Status: Acute Qualifiers: Heart failure type: combined systolic and diastolic Plan to address problem: Admit to telemetry, CHF protocol, strict I's/O, monitor urine output every shift, daily weight, BNP, supplemental oxygen, pulse oximetry, afterload reduction, continue blood pressure control, diuresis, echo from 08/2018 reviewed, thyroid panel, magnesium level, chest x-ray. Pt counseled regarding medication compliance. (2) Acute hypoxemic respiratory failure Current Visit: Yes Status: Acute Plan to address problem: Supplemental oxygen, pulse oximetry, noninvasive positive pressure ventilation, chest x-ray, supportive care. (3) Hypertension Current Visit: Yes Status: Acute Qualifiers: Hypertension type: essential hypertension Qualified Code(s): I10 - Essential (primary) hypertension Plan to address problem: Monitor blood pressure every shift, continue medical management. (4) Coronary artery disease Current Visit: Yes Status: Acute Qualifiers: Associated angina: without angina Plan to address problem: Lipid panel, risk factor reduction, antiplatelet therapy, statin therapy. (5) Cocaine dependence Current Visit: Yes Status: Acute Qualifiers: Complication of substance-induced condition: uncomplicated Plan to address problem: Supportive care, outpatient substance abuse follow-up. Behavior change counseling, +15 minutes. (6) Nicotine dependence Current Visit: Yes Status: Acute Qualifiers: Nicotine product type: cigarettes Substance use status: in withdrawal Qualified Code(s): F17.213 - Nicotine dependence, cigarettes, with withdrawal Plan to address problem: Supportive care, smoking cessation counseling, +15 minutes. (7) Advance care planning Current Visit: Yes Status: Acute Plan to address problem: Patient is full code, disease education conducted, patient knowledges understanding instructions, patient informed that continued medication noncompliance will likely result in worsening disease, as well as early . Patient acknowledges that he will attempt to comply with his medication and diet in the future. Patient also acknowledges understanding and agreement with care plan. +30 minutes. (8) Osteoarthritis Current Visit: Yes Status: Acute Qualifiers: Laterality: bilateral Plan to address problem: Supportive care, NSAID therapy as tolerated, (9) History of stroke Current Visit: Yes Status: Acute Plan to address problem: Continue antiplatelet therapy, supportive care, risk factor reduction therapy. Continue statin therapy. (10) DVT prophylaxis Current Visit: No Status: Acute Plan to address problem: SCD to bilateral lower extremities while in bed, patient is ambulatory. History Interval history: 63-year-old male hospital day 2 with acute hypoxemic respiratory failure, congestive heart failure suspected secondary to medication noncompliance and dietary noncompliance. Patient convalesced well overnight. Patient states that his symptoms are mildly improved today. Patient reports decreased shortness of breath. Patient denies pain. Discharge planning in a.m. if patient symptoms continue to improve. Lab and imaging studies reviewed. Hospitalist Physical - Constitutional Vitals: Temp Pulse Resp BP Pulse Ox 97.7 F 87 18 113/79 95 06/24/19 11:27 06/24/19 11:27 06/24/19 11:27 06/24/19 11:27 06/24/19 11:27 General appearance: Present: mild distress - EENT Eyes: Present: PERRL ENT: hearing intact - Respiratory Respiratory: bilateral: diminished, rales - Cardiovascular Rhythm: regular Heart Sounds: Present: S1 & S2 - Extremities Extremities: no ischemia Peripheral Pulses: within normal limits - Abdominal General gastrointestinal: soft, non-tender, non-distended - Integumentary Integumentary: Present: clear, warm, dry - Psychiatric Psychiatric: appropriate mood/affect - Neurologic Neurologic: CNII-XII intact VINNY score - Vinny Score Age > 65: (0) No Aspirin use within the Past 7 Days: (1) Yes 3 or more CAD Risk Factors: (1) Yes 2 or more Angina events in past 24 hrs: (1) Yes Known CAD with more than 50% Stenosis: (1) Yes Elevated Cardiac Markers: (0) No ST Deviation Greater than 0.5mm: (0) No VINNY Score: 4 Results - Labs CBC & Chem 7: 06/23/19 09:43 06/24/19 04:51 Labs: Laboratory Last Values WBC 7.2 K/mm3 (4.5-11.0) 06/23/19 09:43 RBC 4.73 M/mm3 (3.65-5.03) 06/23/19 09:43 Hgb 13.4 gm/dl (11.8-15.2) 06/23/19 09:43 Hct 41.1 % (35.5-45.6) 06/23/19 09:43 MCV 87 fl (84-94) 06/23/19 09:43 MCH 28 pg (28-32) 06/23/19 09:43 MCHC 33 % (32-34) 06/23/19 09:43 RDW 16.3 % (13.2-15.2) H 06/23/19 09:43 Plt Count 207 K/mm3 (140-440) 06/23/19 09:43 Lymph % (Auto) 36.3 % (13.4-35.0) H 06/23/19 09:43 Jefferson % (Auto) 7.3 % (0.0-7.3) 06/23/19 09:43 Eos % (Auto) 4.0 % (0.0-4.3) 06/23/19 09:43 Baso % (Auto) 1.2 % (0.0-1.8) 06/23/19 09:43 Lymph # 2.6 K/mm3 (1.2-5.4) 06/23/19 09:43 Jefferson # 0.5 K/mm3 (0.0-0.8) 06/23/19 09:43 Eos # 0.3 K/mm3 (0.0-0.4) 06/23/19 09:43 Baso # 0.1 K/mm3 (0.0-0.1) 06/23/19 09:43 Seg Neutrophils % 51.2 % (40.0-70.0) 06/23/19 09:43 Seg Neutrophils # 3.7 K/mm3 (1.8-7.7) 06/23/19 09:43 Sodium 141 mmol/L (137-145) 06/24/19 04:51 Potassium 4.4 mmol/L (3.6-5.0) 06/24/19 04:51 Chloride 104.2 mmol/L (98-107) 06/24/19 04:51 Carbon Dioxide 21 mmol/L (22-30) L 06/24/19 04:51 Anion Gap 20 mmol/L 06/24/19 04:51 BUN 13 mg/dL (9-20) 06/24/19 04:51 Creatinine 0.8 mg/dL (0.8-1.5) 06/24/19 04:51 Estimated GFR > 60 ml/min 06/24/19 04:51 BUN/Creatinine Ratio 16 % 06/24/19 04:51 Glucose 142 mg/dL (75-100) H 06/24/19 04:51 Calcium 9.3 mg/dL (8.4-10.2) 06/24/19 04:51 Magnesium 2.20 mg/dL (1.7-2.3) 06/23/19 09:43 Total Bilirubin 0.30 mg/dL (0.1-1.2) 06/23/19 09:43 AST 12 units/L (5-40) 06/23/19 09:43 ALT 9 units/L (7-56) 06/23/19 09:43 Alkaline Phosphatase 82 units/L (35-129) 06/23/19 09:43 Troponin T < 0.010 ng/mL (0.00-0.029) 06/23/19 09:43 NT-Pro-B Natriuret Pep 713.1 pg/mL (0-900) 06/23/19 09:43 Total Protein 6.6 g/dL (6.3-8.2) 06/23/19 09:43 Albumin 3.9 g/dL (3.9-5) 06/23/19 09:43 Albumin/Globulin Ratio 1.4 % 06/23/19 09:43 TSH 0.614 mlU/mL (0.270-4.200) 06/23/19 13:06 Free T4 1.21 ng/dL (0.76-1.46) 06/23/19 13:06 Urine Opiates Screen Presumptive negative 06/23/19 Unknown Urine Methadone Screen Presumptive negative 06/23/19 Unknown Ur Barbiturates Screen Presumptive negative 06/23/19 Unknown Ur Phencyclidine Scrn Presumptive negative 06/23/19 Unknown Ur Amphetamines Screen Presumptive negative 06/23/19 Unknown U Benzodiazepines Scrn Presumptive negative 06/23/19 Unknown Urine Cocaine Screen Presumptive positive 06/23/19 Unknown U Marijuana (THC) Screen Presumptive negative 06/23/19 Unknown Drugs of Abuse Note Disclamer 06/23/19 Unknown Hoffman/IV: Voiding Method Urinal IV Catheter Type [Left INT / Saline Lock Antecubital] Active Medications - Current Medications Current Medications: Generic Name Dose Route Start Last Admin Trade Name Freq PRN Reason Stop Dose Admin Acetaminophen 650 mg 06/23/19 12:02 Tylenol PO Q4H PRN Pain MILD(1-3)/Fever >100.5/VEGAS Albuterol 2.5 mg 06/23/19 12:02 Proventil IH Q4H PRN Shortness Of Breath Aspirin 81 mg 06/24/19 10:00 06/24/19 09:49 Baby Aspirin PO 81 mg QDAY CAR Administration Atorvastatin Calcium 40 mg 06/23/19 22:00 06/23/19 21:49 Lipitor PO 40 mg QHS CAR Administration Carbamazepine 100 mg 06/23/19 22:00 06/24/19 09:49 Tegretol PO 100 mg BID CAR Administration Clopidogrel Bisulfate 75 mg 06/24/19 10:00 06/24/19 09:49 Plavix PO 75 mg QDAY CAR Administration Cyclobenzaprine HCl 10 mg 06/23/19 22:00 06/23/19 21:49 Flexeril PO 10 mg QHS CAR Administration Furosemide 20 mg 06/23/19 18:00 06/24/19 06:20 Lasix IV 20 mg 0600,1800 CAR Administration Lisinopril 10 mg 06/24/19 10:00 06/24/19 09:49 Zestril PO 10 mg QDAY CAR Administration Ondansetron HCl 4 mg 06/23/19 12:02 Zofran IV Q8H PRN Nausea And Vomiting Sodium Chloride 10 ml 06/23/19 22:00 06/24/19 09:49 Sodium Chloride Flush Syringe 10 Ml IV 10 ml BID CAR Administration Sodium Chloride 10 ml 06/23/19 12:02 Sodium Chloride Flush Syringe 10 Ml IV PRN PRN LINE FLUSH
[2019-06-24] MEDS: CYCLOBENZAPRINE 10 MG TAB PO SCH (21:39)
[2019-06-25] MEDS: FUROSEMIDE 20 MG/2 ML INJ IV SCH ×2 (08:04→17:36)
[2019-06-25] MEDS: ASPIRIN 81 MG TAB CHEW PO SCH (10:35)
[2019-06-25] MEDS: CLOPIDOGREL 75 MG TAB PO SCH (10:35)
[2019-06-25] MEDS: carBAMazepine 100 MG TAB CHEW PO SCH (10:36)
[2019-06-25] MEDS: LISINOPRIL 10 MG TAB PO SCH (10:36)
[2019-06-25 17:05] VITALS: BP 117/73
--- NOTE | 2019-06-25 18:36 | Discharge Summary ---
Providers - Providers Date of Admission: 06/23/19 12:02 Date of discharge: 06/25/19 Attending physician: CHRISTIAN JOHNSON [facility] Condition: Stable Hospital course: 63 YO Male with Systolic/Diastolic CHF(EF 20%), Nicotine Dependence, CAD S/P Stent Placement, Medication Noncompliance, Dietary Noncompliance, Cocaine D ependence, COPD, HTN, OA, [place], CVA, Obesity presents to ED for evaluation. Patient states that he has experienced progressively worsening shortness of breath over the past 3 days. Patient states that he has experienced progressively worsening exercise tolerance, shortness of breath. Patient acknowledges orthopnea and paroxysmal nocturnal dyspnea, dyspnea on exertion, dyspnea at rest. Patient also acknowledges medication and dietary noncompliance. Patient reports that he has not taken his medication since he ran out several weeks ago. Patient transported to [facility] via private vehicle for further evaluation and care. Patient seen and evaluated in the emergency department. Lab and imaging studies reviewed. Patient found to have pulse oximetry of 88% while on supplemental oxygen in the emergency department, as well as laboratory findings and clinical exam findings consistent with CHF decompensation, as well as acute hypoxemic respiratory failure. Patient placed on supplemental oxygen with mild improvement of pulse oximetry and was subsequently placed on noninvasive positive pressure ventilation in the emergency department. Patient denies fever, chills, chest pain, productive cou gh, skin rash, unilateral leg swelling, hemoptysis, prolonged travel/immobility, individual/family history of DVT/PE/bleeding/blood clotting disorders, or known ill contacts. Patient placed in observation status and admitted to telemetry for further evaluation and care due to increased risk of cardiopulmonary decompensation. Patient initiated on CHF protocol. Patient treated with resumption of prehospital MAXINE inhibitor and beta-hebert therapy, as well as diuresis with Lasix. Prior admission on 03/08/2019 reviewed. All listed medication at time of admission has been reconciled. Echocardiogram from September 10 reviewed. Advanced care planning conducted in ED. Symptomatically lot better after diuresis (1) CHF (congestive heart failure) Exacerbation Current Visit: Yes Status: Acute Qualifiers: Heart failure type: combined systolic and diastolic Plan to address problem: Improved TO FOLLOWITH CARDIOLOGY (2) Acute hypoxemic respiratory failure Current Visit: Yes Status: Acute Plan to address problem: Improved (3) Hypertension Current Visit: Yes Status: Acute Qualifiers: Hypertension type: essential hypertension Qualified Code(s): I10 - Essential (primary) hypertension Plan to address problem: Controlled (4) Coronary artery disease Current Visit: Yes Status: Acute Qualifiers: Associated angina: without angina Plan to address problem: antiplatelet therapy, statin therapy. (5) Cocaine dependence Current Visit: Yes Status: Acute Qualifiers: Complication of substance-induced condition: uncomplicated Plan to address problem: Counselled (6) Nicotine dependence Current Visit: Yes Status: Acute Qualifiers: Nicotine product type: cigarettes Substance use status: in withdrawal Qualified Code(s): F17.213 - Nicotine dependence, cigarettes, with withdrawal Plan to address problem: Counselled Disposition: - TO HOME OR SELFCARE Core Measure Documentation - Palliative Care Palliative Care/ Comfort Measures: Not Applicable - Core Measures Any of the following diagnoses?: none Exam - Constitutional Vitals: Temp Pulse Resp BP Pulse Ox 97.9 F 91 H 18 117/73 94 06/25/19 17:01 06/25/19 17:01 06/25/19 17:01 06/25/19 17:01 06/25/19 17:01 General appearance: Present: no acute distress, well-nourished - EENT Eyes: Present: PERRL ENT: hearing intact, clear oral mucosa - Neck Neck: Present: supple, normal ROM - Respiratory Respiratory effort: normal Respiratory: bilateral: CTA - Cardiovascular Heart Sounds: Present: S1 & S2. Absent: rub, click - Extremities Extremities: pulses symmetrical, No edema Peripheral Pulses: within normal limits - Abdominal General gastrointestinal: Present: soft, non-tender, non-distended, normal bowel sounds Male genitourinary: Present: normal - Integumentary Integumentary: Present: clear, warm, dry - Musculoskeletal Musculoskeletal: gait normal, strength equal bilaterally - Psychiatric Psychiatric: appropriate mood/affect, intact judgment & insight - Neurologic Neurologic: CNII-XII intact, moves all extremities Plan Activity: no restrictions Diet: low salt Follow up with: TRUONG CANNON MD [Primary Care Provider] - 7 Days LYNN LAU MD [Staff Physician] - 7 Days
== END 2019-06-25 19:45 | disposition home or self-care (01) | DRG 291 ==
LOC: ED 08:51 → 4A 12:02
PROVIDERS: ADMIT Internal Medicine; ATTEND Internal Medicine
PROC: 5A09357 Assistance with Respiratory Ventilation, Less than 24 Consecutive Hours, Continuous Positive Airway Pressure (ICD-10-PCS; principal; 2019-06-23)
DX: I11.0 Hypertensive heart disease with heart failure (principal); J96.01 Acute respiratory failure with hypoxia; F14.20 Cocaine dependence, uncomplicated; F17.213 Nicotine dependence, cigarettes, with withdrawal; J44.1 Chronic obstructive pulmonary disease with (acute) exacerbation; I50.43 Acute on chronic combined systolic (congestive) and diastolic (congestive) heart failure; F17.200 Nicotine dependence, unspecified, uncomplicated; I25.10 Atherosclerotic heart disease of native coronary artery without angina pectoris; M19.90 Unspecified osteoarthritis, unspecified site; E66.9 Obesity, unspecified; Z95.5 Presence of coronary angioplasty implant and graft; I25.2 Old myocardial infarction; Z86.73 Personal history of transient ischemic attack (TIA), and cerebral infarction without residual deficits; Z68.30 Body mass index [BMI] 30.0-30.9, adult; Z71.6 Tobacco abuse counseling; Z82.49 Family history of ischemic heart disease and other diseases of the circulatory system; Z79.899 Other long term (current) drug therapy; Z79.82 Long term (current) use of aspirin
CPT/HCPCS: 36415; 71046; 80048; 80053; 80307; 83735; 83880; 84439; 84443; 84484; 85025; 87116; 93005; 93010; 94660; 99406; G0378; A9270-GY; J1100; J1940

== ENCOUNTER 2019-09-20 03:10 | Emergency (ER) | payer OTHER ==
[2019-09-20] MEDS ORDERED: ASPIRIN 325 MG TAB PO ONE (03:21)
[2019-09-20] MEDS ORDERED: ALBUTEROL 2.5 MG/3 ML NEBU IH ONE (03:28)
--- NOTE | 2019-09-20 03:29 | Emergency Department Report ---
ED General Adult HPI - General Chief complaint: Dyspnea/Respdistress Stated complaint: DIFFICULTY IN BREATHING PUI?: No Time Seen by Provider: 09/20/19 03:17 Source: patient, EMS ( EMS documentation not available at time of chart dictation ), RN notes reviewed, old records reviewed Mode of arrival: Stretcher Limitations: No Limitations - History of Present Illness Initial comments: This is a 64-year-old gentleman. I have evaluated this patient in the past. Past medical history includes systolic diastolic CHF EF of 20%, nicotine dependence, heart disease with stent, medication noncompliance, dietary noncompliance, cocaine dependence, COPD, hypertension, osteoarthritis, obesity, not on home oxygen. The patient is brought to the hospital by emergency medical services with a complaint of shortness of breath. The patient endorses dietary and lifestyle indiscretions. He was given albuterol and Lasix by EMS. Patient denies new headache, denies chest pain, denies abdominal pain, indicates chronic shortness of breath, and he is not homicidal or suicidal. He does endorse recreational crack use. Shortness of breath is chronic, worsens with physical exertion and decreases with rest. Also endorses chronic bilateral nontraumatic knee pain. -: Gradual Consistency: now resolved Improves with: medication Worsens with: medication - Related Data Previous Rx's Medication Instructions Recorded Last Taken Type lisinopriL [Zestril TAB] 10 mg PO QDAY #30 tablet 12/29/18 Unknown Rx Cyclobenzaprine [Flexeril] 10 mg PO QHS #20 tablet 05/06/19 Unknown Rx Azithromycin [Zithromax Z-FABIOLA] 250 mg PO DAILY #6 tablet 05/25/19 Unknown Rx Albuterol INH(or & Nicu Only) 2 puff IH Q4HR PRN #1 inhalation 06/25/19 Unknown Rx [ProAir HFA Inhaler] Potassium Chloride [K-Dur] 10 meq PO QDAY #30 tablet 06/25/19 Unknown Rx carBAMazepine [TEGretol] 100 mg PO BID #60 tab.chew 06/25/19 Unknown Rx predniSONE [Deltasone] 20 mg PO DAILY 10 Days #15 tablet 06/25/19 Unknown Rx Furosemide [Lasix TAB] 20 mg PO QDAY 30 Days #60 tablet 09/07/19 Unknown Rx Albuterol INH(or & Nicu Only) 2 puff IH QID PRN #8.5 gram 09/20/19 Unknown Rx [ProAir HFA Inhaler] Aspirin [Aspirin BABY CHEW TAB] 81 mg PO QDAY #100 tab.chew 09/20/19 Unknown Rx AtorvaSTATin [Lipitor] 40 mg PO QHS #30 tablet 09/20/19 Unknown Rx Clopidogrel [Plavix] 75 mg PO QDAY #30 tablet 09/20/19 Unknown Rx Furosemide [Lasix TAB] 20 mg PO QDAY #30 tablet 09/20/19 Unknown Rx Lisinopril/Hydrochlorothiazide 1 each PO DAILY 30 Days #30 tablet 09/20/19 Unknown Rx [Zestoretic 10-12.5 mg Tablet] Allergies Allergy/AdvReac Type Severity Reaction Status Date / Time No Known Allergies Allergy Verified 06/23/19 08:58 ED Review of Systems ROS: Stated complaint: DIFFICULTY IN BREATHING Other details as noted in HPI Constitutional: denies: fever Eyes: denies: eye discharge ENT: congestion Respiratory: cough, shortness of breath Cardiovascular: denies: chest pain Gastrointestinal: denies: abdominal pain Musculoskeletal: arthralgia, myalgia Neurological: denies: weakness Psychiatric: denies: homicidal thoughts, suicidal thoughts ED Past Medical Hx - Past Medical History Hx Hypertension: Yes Hx CVA: Yes Hx Heart Attack/AMI: Yes Hx Congestive Heart Failure: Yes Hx Diabetes: No Hx Arthritis: Yes Hx Asthma: No Hx COPD: Yes Additional medical history: "sepsis" 09/2014 - Surgical History Hx Coronary Stent: Yes Additional Surgical History: Peptic Ulcer surgery. 2 Knee surgeries - Social History Smoking Status: Current Every Day Smoker Substance Use Type: Alcohol, Cocaine - Medications Home Medications: Home Medications Medication Instructions Recorded Confirmed Last Taken Type lisinopriL [Zestril TAB] 10 mg PO QDAY #30 tablet 12/29/18 06/23/19 Unknown Rx Cyclobenzaprine [Flexeril] 10 mg PO QHS #20 tablet 05/06/19 06/23/19 Unknown Rx Azithromycin [Zithromax Z-FABIOLA] 250 mg PO DAILY #6 tablet 05/25/19 06/23/19 Unknown Rx Albuterol INH(or & Nicu Only) 2 puff IH Q4HR PRN #1 inhalation 06/25/19 Unknown Rx [ProAir HFA Inhaler] Potassium Chloride [K-Dur] 10 meq PO QDAY #30 tablet 06/25/19 Unknown Rx carBAMazepine [TEGretol] 100 mg PO BID #60 tab.chew 06/25/19 Unknown Rx predniSONE [Deltasone] 20 mg PO DAILY 10 Days #15 tablet 06/25/19 Unknown Rx Furosemide [Lasix TAB] 20 mg PO QDAY 30 Days #60 tablet 09/07/19 Unknown Rx Albuterol INH(or & Nicu Only) 2 puff IH QID PRN #8.5 gram 09/20/19 Unknown Rx [ProAir HFA Inhaler] Aspirin [Aspirin BABY CHEW TAB] 81 mg PO QDAY #100 tab.chew 09/20/19 Unknown Rx AtorvaSTATin [Lipitor] 40 mg PO QHS #30 tablet 09/20/19 Unknown Rx Clopidogrel [Plavix] 75 mg PO QDAY #30 tablet 09/20/19 Unknown Rx Furosemide [Lasix TAB] 20 mg PO QDAY #30 tablet 09/20/19 Unknown Rx Lisinopril/Hydrochlorothiazide 1 each PO DAILY 30 Days #30 tablet 09/20/19 Unknown Rx [Zestoretic 10-12.5 mg Tablet] ED Physical Exam - General Limitations: No Limitations General appearance: alert, in no apparent distress - Head Head exam: Present: atraumatic, normocephalic - Eye Eye exam: Present: normal appearance, EOMI. Absent: nystagmus - ENT ENT exam: Present: normal exam, normal orophraynx, mucous membranes moist, normal external ear exam - Neck Neck exam: Present: normal inspection, full ROM. Absent: tenderness, menin gismus - Respiratory Respiratory exam: Present: decreased breath sounds. Absent: respiratory distress, wheezes, rales, rhonchi - Cardiovascular Cardiovascular Exam: Present: normal rhythm, tachycardia, normal heart sounds. Absent: systolic murmur, diastolic murmur, rubs, gallop - GI/Abdominal GI/Abdominal exam: Present: soft, normal bowel sounds. Absent: distended, tenderness, guarding, rebound, rigid, pulsatile mass - Rectal Rectal exam: Present: deferred - Extremities Exam Extremities exam: Present: normal inspection (Bilateral knee effusion is noted. No redness, pus or streaking. No significant joint tenderness. Active and passive range of motion intact in the bilateral lower extremity), full ROM, other (2+ pulses noted in the bilateral upper and lower extremities. There is no palpable cord. negative Homans sign. Muscular compartments are soft. The pelvis is stable.). Absent: pedal edema, calf tenderness - Back Exam Back exam: Present: normal inspection. Absent: tenderness, CVA tenderness (R), CVA tenderness (L), paraspinal tenderness, vertebral tenderness - Neurological Exam Neurological exam: Present: alert, normal gait, other (No facial droop. Tongue midline. Extraocular movements intact bilaterally. Facial sensation intact to light touch in V1, V2, V3 distribution bilaterally. 5 and a 5 strength in 4 extremities. Sensation intact to light touch in 4 extremities.). Absent: motor sensory deficit - Psychiatric Psychiatric exam: Present: anxious. Absent: homicidal ideation, suicidal ideation - Skin Skin exam: Present: warm, dry, intact, normal color. Absent: rash ED Course Vital Signs 09/20/19 09/20/19 09/20/19 03:14 03:16 03:20 Temperature Pulse Rate 85 107 H 106 H Pulse Rate [ Anterior Throughout] Respiratory 29 H 27 H Rate Respiratory Rate [Anterior Throughout] Blood Pressure 140/85 O2 Sat by Pulse 99 Oximetry 09/20/19 09/20/19 09/20/19 03:26 03:30 03:36 Temperature 98.2 F Pulse Rate 103 H 102 H 111 H Pulse Rate [ Anterior Throughout] Respiratory 21 21 17 Rate Respiratory Rate [Anterior Throughout] Blood Pressure 135/74 126/69 126/69 O2 Sat by Pulse 98 100 Oximetry 09/20/19 09/20/19 09/20/19 03:40 03:46 04:02 Temperature Pulse Rate 101 H 101 H 102 H Pulse Rate [ Anterior Throughout] Respiratory 26 H 27 H Rate Respiratory Rate [Anterior Throughout] Blood Pressure 126/69 126/69 126/69 O2 Sat by Pulse 97 96 94 Oximetry 09/20/19 09/20/19 09/20/19 04:06 04:10 04:16 Temperature Pulse Rate 99 H 100 H 95 H Pulse Rate [ Anterior Throughout] Respiratory Rate Respiratory Rate [Anterior Throughout] Blood Pressure 102/65 102/65 102/65 O2 Sat by Pulse 94 94 91 Oximetry 09/20/19 09/20/19 09/20/19 04:20 04:26 04:30 Temperature Pulse Rate 93 H 118 H 98 H Pulse Rate [ Anterior Throughout] Respiratory 22 20 20 Rate Respiratory Rate [Anterior Throughout] Blood Pressure 102/65 102/65 102/65 O2 Sat by Pulse 93 95 92 Oximetry 09/20/19 09/20/19 09/20/19 04:36 04:40 04:46 Temperature Pulse Rate 87 98 H 92 H Pulse Rate [ Anterior Throughout] Respiratory 19 21 23 Rate Respiratory Rate [Anterior Throughout] Blood Pressure 102/65 102/65 102/65 O2 Sat by Pulse 94 97 94 Oximetry 09/20/19 09/20/19 09/20/19 04:50 04:56 05:00 Temperature Pulse Rate 105 H 95 H 90 Pulse Rate [ Anterior Throughout] Respiratory 29 H 16 14 Rate Respiratory Rate [Anterior Throughout] Blood Pressure 102/65 102/65 106/69 O2 Sat by Pulse 97 97 95 Oximetry 09/20/19 05:01 Temperature Pulse Rate Pulse Rate [ 90 Anterior Throughout] Respiratory Rate Respiratory 21 Rate [Anterior Throughout] Blood Pressure O2 Sat by Pulse Oximetry - Reevaluation(s) Reevaluation #1: 09/20/19 04:18 Differential diagnosis, including but not limited to: COPD, CHF, pneumonia, electrolyte derangement Assessment and plan: 64-year-old gentleman with multiple chronic medical conditions, brought to the hospital with EMS, treated with Lasix and albuterol, diuresing in the ER. He is afebrile with reassuring vital signs with improving tachycardia. Heart rate 99 to 100 bpm at this time. He has received albuterol. He is saturating at 100% on room air. He was able to ambulate on room air, and did not desaturate below 94, 95%. X-ray of the chest shows no chronic findings. Pulmonary exam unremarkable. Patient appears to be comfortable at this time, screening laboratory studies pending, however, do not anticipate need for hospitalization. We will refill the patient's outpatient medications. He is clinically sober at this time. He is not homicidal suicidal. He does not require 1013 at this time. ED Medical Decision Making - Lab Data Result diagrams: 09/20/19 03:40 09/20/19 03:40 Vital Signs 09/20/19 09/20/19 09/20/19 03:14 03:16 03:20 Temperature Pulse Rate 85 107 H 106 H Respiratory 29 H 27 H Rate Blood Pressure 140/85 O2 Sat by Pulse 99 Oximetry 09/20/19 09/20/19 09/20/19 03:26 03:30 03:36 Temperature 98.2 F Pulse Rate 103 H 102 H 111 H Respiratory 21 21 17 Rate Blood Pressure 135/74 126/69 126/69 O2 Sat by Pulse 98 100 Oximetry 09/20/19 09/20/19 09/20/19 03:40 03:46 04:02 Temperature Pulse Rate 101 H 101 H 102 H Respiratory 26 H 27 H Rate Blood Pressure 126/69 126/69 126/69 O2 Sat by Pulse 97 96 94 Oximetry 09/20/19 09/20/19 04:06 04:10 Temperature Pulse Rate 99 H 100 H Respiratory Rate Blood Pressure 102/65 102/65 O2 Sat by Pulse 94 94 Oximetry Lab Results 09/20/19 09/20/19 09/20/19 Range/Units 03:40 03:40 03:40 Hgb 13.9 (11.8-15.2) gm/dl Hct 42.8 (35.5-45.6) % Plt Count 194 (140-440) K/mm3 Sodium 146 H (137-145) mmol/L Potassium 3.6 (3.6-5.0) mmol/L Chloride 106.9 (98-107) mmol/L Carbon Dioxide 24 (22-30) mmol/L Anion Gap 19 mmol/L BUN 10 (9-20) mg/dL Creatinine 0.9 (0.8-1.5) mg/dL Estimated GFR > 60 ml/min BUN/Creatinine Ratio 11 % Glucose 132 H (75-100) mg/dL Calcium 9.3 (8.4-10.2) mg/dL Magnesium 1.90 (1.7-2.3) mg/dL Total Creatine Kinase 82 (55-170) units/L Salicylates (2.8-20.0) mg/dL Acetaminophen (10.0-30.0) ug/mL Plasma/Serum Alcohol (0-0.07) % 09/20/19 09/20/19 09/20/19 Range/Units 03:40 03:40 03:40 Hgb (11.8-15.2) gm/dl Hct (35.5-45.6) % Plt Count (140-440) K/mm3 Sodium (137-145) mmol/L Potassium (3.6-5.0) mmol/L Chloride (98-107) mmol/L Carbon Dioxide (22-30) mmol/L Anion Gap mmol/L BUN (9-20) mg/dL Creatinine (0.8-1.5) mg/dL Estimated GFR ml/min BUN/Creatinine Ratio % Glucose (75-100) mg/dL Calcium (8.4-10.2) mg/dL Magnesium (1.7-2.3) mg/dL Total Creatine Kinase (55-170) units/L Salicylates < 0.3 L (2.8-20.0) mg/dL Acetaminophen < 5.0 L (10.0-30.0) ug/mL Plasma/Serum Alcohol < 0.01 (0-0.07) % - EKG Data -: EKG Interpreted by Me - EKG Data 09/20/19 04:18 EKG today shows a sinus rhythm, tachycardia, 100 bpm, normal axis, QTC prolonged, PVCs, motion artifact, not a STEMI, unchanged from prior EKG from 09/07/2019 - Radiology Data Radiology results: pending, image reviewed interpreted by me: X-ray of the chest, reviewed and appreciated by myself, no acute pathology. Chronic findings noted. Chronic lung disease noted Critical care attestation.: If time is entered above; I have spent that time in minutes in the direct care of this critically ill patient, excluding procedure time. ED Disposition Clinical Impression: Cocaine dependence, COPD (chronic obstructive pulmonary disease), History of CHF (congestive heart failure) Disposition: DC-01 TO HOME OR SELFCARE Is pt being admited?: No Does the pt Need Aspirin: No Condition: Stable Instructions: Chronic Obstructive Pulmonary Disease (ED) Additional Instructions: Please avoid consumption of cocaine, crack, alcohol, and recreational drugs. Consumption of the aforementioned may cause disability, paralysis, loss of quality of life and addiction. Take the prescribed medications as needed and directed. Follow-up with an outpatient primary care doctor, bench hand or market development trainer within the next 7 days. Return to the emergency room right away with new pain, worsening pain, migration of pain, projectile vomiting, change in mental status, confusion, inability to tolerate liquid feeds, new, worsened or different symptoms not present on the initial emergency room evaluation. Prescriptions: AtorvaSTATin [Lipitor] 40 mg PO QHS #30 tablet Aspirin [Aspirin BABY CHEW TAB] 81 mg PO QDAY #100 tab.chew Furosemide [Lasix TAB] 20 mg PO QDAY #30 tablet Clopidogrel [Plavix] 75 mg PO QDAY #30 tablet Albuterol INH(or & Nicu Only) [ProAir HFA Inhaler] 2 puff IH QID PRN #8.5 gram PRN Reason: Shortness Of Breath Lisinopril/Hydrochlorothiazide [Zestoretic 10-12.5 mg Tablet] 1 each PO DAILY 30 Days #30 tablet Referrals: ETIENNE WRIGHT MD [Staff Physician] - 3-5 Days [facility] [Provider Group] - 3-5 Days PADDY BOWEN MD [Staff Physician] - 3-5 Days
[2019-09-20 04:13] LABS: Hematocrit 42.8 % (35.5-45.6); Hemoglobin 13.9 gm/dl (11.8-15.2)
[2019-09-20 04:29] LABS: BUN/Creatinine Ratio 11; Blood Urea Nitrogen 10 mg/dL (9-20); Calcium 9.3 mg/dL (8.4-10.2); Hemolysis Index 21
[2019-09-20] MEDS ORDERED: IBUPROFEN 200 MG TAB PO ONE (04:51)
--- NOTE | 2019-09-20 04:51 | XRay Report ---
CHEST 1 VIEW INDICATION: Chest Pain. COMPARISON: 09/07/2019 FINDINGS: Support devices: None. Heart: Normal. Lungs/Pleura: There are mild diffuse interstitial opacities. No consolidation or effusion. IMPRESSION: 1. Mild diffuse interstitial opacities are similar to the prior exam from 06/23/2019 and new since the exam from 09/07/2019. Mild pulmonary edema could have this appearance. However, there is no cardiomeg vee. Signer Name: Marbin Sanchez MD Signed: 09/20/2019 4:47 AM Workstation Name: [id number]
[2019-09-20 05:04] VITALS: BP 106/69
[2019-09-20] MEDS ORDERED: IBUPROFEN 400 MG TAB PO ONE (05:11)
== END 2019-09-20 05:34 | disposition home or self-care (01) ==
LOC: ED 03:10
DX: J44.9 Chronic obstructive pulmonary disease, unspecified (principal); F14.20 Cocaine dependence, uncomplicated; I11.0 Hypertensive heart disease with heart failure; I50.9 Heart failure, unspecified; I25.2 Old myocardial infarction; M19.90 Unspecified osteoarthritis, unspecified site; F17.200 Nicotine dependence, unspecified, uncomplicated
CPT/HCPCS: 36415; 71045; 80048; 80320; 82550; 83735; 85014; 85018; 85049; 93005; 94640; 94644; G0480

== ENCOUNTER 2019-11-24 02:08 | Inpatient (IN) | payer MEDICAID, SELFPAY ==
[2019-11-24] MEDS ORDERED: LIP THERAPY VASELINE TP PRN (02:23)
[2019-11-24] MEDS ORDERED: MIDAZOLAM 2 MG/2 ML INJ IV PRN (02:23)
[2019-11-24] MEDS ORDERED: MINERAL OIL/PETROLATUM, WHITE OPHTH OINT 3.5 GM OU PRN (02:23)
[2019-11-24] MEDS ORDERED: MIDAZOLAM 5 MG/5 ML INJ MDV IV ONE (02:27)
--- NOTE | 2019-11-24 02:56 | Emergency Department Report ---
HPI - General Time Seen by Provider: 11/24/19 02:20 - HPI HPI: Room 2 The patient is a 64-year-old male present with a chief complaint of shortness of breath. Per EMS the patient was found hypoxic in respiratory distress. EMS placed the patient on CPAP administered Solu-Medrol, Lasix and magnesium but the patient remained hypoxic to 88% while on BiPAP. In the ED the patient was found to be lethargic with an SPO2 of approximately 91% on CPAP. The decision to intubate using RSI was then made ED Past Medical Hx - Past Medical History Hx Hypertension: Yes Hx CVA: Yes Hx Heart Attack/AMI: Yes Hx Congestive Heart Failure: Yes Hx Arthritis: Yes Hx COPD: Yes Additional medical history: "sepsis" 09/2014 - Surgical History Hx Coronary Stent: Yes Hx Open Heart Surgery: Yes (STENT PLACEMENT 2 YEARS AGO) Additional Surgical History: Peptic Ulcer surgery. 2 Knee surgeries - Family History Family history: no significant - Social History Smoking Status: Current Some Day Smoker Substance Use Type: None - Medications Home Medications: Home Medications Medication Instructions Recorded Confirmed Last Taken Type lisinopriL [Zestril TAB] 10 mg PO QDAY #30 tablet 12/29/18 09/21/19 Unknown Rx Albuterol Mdi (or & Nicu Only) 2 puff IH Q4HR PRN #1 inhalation 06/25/19 09/21/19 Unknown Rx [ProAir HFA Inhaler] Aspirin [Aspirin BABY CHEW TAB] 81 mg PO QDAY #100 tab.chew 09/20/19 09/21/19 Unknown Rx AtorvaSTATin [Lipitor] 40 mg PO QHS #30 tablet 09/20/19 09/21/19 Unknown Rx Clopidogrel [Plavix] 75 mg PO QDAY #30 tablet 09/20/19 09/21/19 Unknown Rx Furosemide [Lasix TAB] 20 mg PO QDAY #30 tablet 09/20/19 09/21/19 Unknown Rx Pantoprazole [Protonix] 40 mg PO QDAY #10 tablet 09/24/19 Unknown Rx Spironolactone [Aldactone] 25 mg PO QDAY #30 tablet 09/24/19 Unknown Rx carBAMazepine [TEGretol] 100 mg PO BID #60 tablet 09/24/19 Unknown Rx carvediloL [Coreg] 3.125 mg PO BID #60 tablet 09/24/19 Unknown Rx dexAMETHasone [Dexamethasone] 6 mg PO DAILY #10 tablet 09/24/19 Unknown Rx guaiFENesin ER [Mucinex ER] 600 mg PO Q12H #14 tablet.er 09/24/19 Unknown Rx ED Review of Systems ROS: Stated complaint: DIFFICULTY IN BREATHING Other details as noted in HPI Constitutional: no symptoms reported Respiratory: shortness of breath Cardiovascular: denies: chest pain Physical Exam - Physical Exam Physical Exam: GENERAL: The patient is well-developed well-nourished male appearing lethargic on BiPAP. [] HEENT: Normocephalic. Atraumatic. Extraocular motions are intact. Patient has moist mucous membranes. NECK: Supple. Trachea midline CHEST/LUNGS: Coarse breath sounds bilaterally. Accessory muscle use. There is respiratory distress noted. HEART/CARDIOVASCULAR: Regular. There is tachycardia. There is no gallop rub or murmur. ABDOMEN: Abdomen is soft, nontender. Patient has normal bowel sounds. There is no abdominal distention. SKIN: There is no rash. There is 1+ lower extremity pitting edema. There is no diaphoresis. NEURO: The patient is lethargic but attempts to answers questions by shaking or nodding his head MUSCULOSKELETAL: There is no evidence of acute injury. - Intubation Sedative: Etomidate Mg Given: 20 Paralytic: Succinylcholine Mg Given: 100 Laryngoscope: fiberoptic video scope Size: 3 ET Tube Size: 8 Tube Secured Depth (cm): 24 Tube Secured Location: lips Tube Placement Confirmation: visualized tube passing t, equal breath sounds bilat, no breath sounds over epi, confirmation by capnometr Patient Tolerated Procedure: no complications Intubation Complications: none ED Medical Decision Making - Lab Data Result diagrams: 11/24/19 02:53 11/24/19 02:53 Laboratory Tests 11/24/19 11/24/19 11/24/19 02:53 02:53 03:45 WBC 14.3 H RBC 4.89 Hgb 14.2 Hct 44.5 MCV 91 MCH 29 MCHC 32 RDW 17.2 H Plt Count 215 Lymph # Experimental [employer] Mechanic ABG pH 7.313 L ABG pCO2 47.6 ABG pO2 102.8 H ABG HCO3 23.6 ABG O2 Saturation 97.4 ABG O2 Content 19.0 ABG Base Excess -2.9 L ABG Hemoglobin 14.3 ABG Carboxyhemoglobin 3.0 ABG Methemoglobin 0.6 Oxyhemoglobin 93.9 L FiO2 70 Sodium 143 Potassium 4.1 Chloride 104.4 Carbon Dioxide 22 Anion Gap 21 BUN 11 Creatinine 1.2 Estimated GFR > 60 BUN/Creatinine Ratio 9 Glucose 195 H Calcium 9.3 Total Bilirubin 0.40 AST 22 ALT 17 Alkaline Phosphatase 89 Total Creatine Kinase 141 CK-MB (CK-2) 4.3 H CK-MB (CK-2) Rel Index 3.0 Troponin T < 0.010 NT-Pro-B Natriuret Pep 1181 H Total Protein 7.4 Albumin 4.5 Albumin/Globulin Ratio 1.6 - EKG Data -: EKG Interpreted by Me EKG shows normal: sinus rhythm Rate: tachycardia (137 bpm) - EKG Data When compared to previous EKG there are: previous EKG unavailable Interpretation: other (No ischemic changes seen) - Radiology Data Radiology results: image reviewed (Chest x-ray) Critical Care Time: Yes Critical care time in (mins) excluding proc time.: 30 Critical care attestation.: If time is entered above; I have spent that time in minutes in the direct care of this critically ill patient, excluding procedure time. ED Disposition Clinical Impression: Acute respiratory failure, CHF exacerbation, Bilateral pneumonia, Hypoxia, Shortness of breath Disposition: DC-09 OP ADMIT IP TO THIS HOSP Is pt being admited?: Yes Does the pt Need Aspirin: Yes Condition: Serious Instructions: Bacterial Pneumonia (ED) Referrals: PRIMARY CARE, [Primary Care Provider] - 3-5 Days Time of Disposition: 04:44 (Hospitalist paged (Dr Atkinson))
[2019-11-24] MEDS ORDERED: MIDAZOLAM 100 MG in SODIUM CHLORIDE 0.9% 80 ML IV SCH (03:00)
[2019-11-24 03:11] LABS: Hematocrit 44.5 % (35.5-45.6); Hemoglobin 14.2 gm/dl (11.8-15.2); Mean Corpuscular HGB Conc 32 % (32-34); Mean Corpuscular Volume 91 fl (84-94); Platelet Count 215 K/mm3 (140-440); Red Blood Count 4.89 M/mm3 (3.65-5.03); Red Cell Distribution Width 17.2 % (13.2-15.2)
--- NOTE | 2019-11-24 03:13 | XRay Report ---
CHEST 1 VIEW INDICATION: Respiratory failure, status post intubation. COMPARISON: 09/24/2019 FINDINGS: Support devices: Endotracheal tube in satisfactory position. Heart: Within normal limits. Lungs/Pleura: Moderate infiltrate mid and lower zones. Additional findings: None. IMPRESSION: 1. Endotracheal tube in satisfactory position. 2. Bilateral pneumonia. Signer Name: Heriberto Johnson MD Signed: 11/24/2019 3:09 AM Workstation Name: [id number]
--- NOTE | 2019-11-24 03:18 | XRay Report ---
ABDOMEN 1 VIEW(S) INDICATION / CLINICAL INFORMATION: NG tube placement. COMPARISON: None available. FINDINGS: TUBES / LINES: Satisfactory NG tube placement. BOWEL GAS PATTERN: No significant abnormality. ADDITIONAL FINDINGS: No significant additional findings. IMPRESSION: Satisfactory NG tube placement. Signer Name: Heriberto Johnson MD Signed: 11/24/2019 3:14 AM Workstation Name: [id number]
[2019-11-24 03:30] LABS: Creatine Kinase MB 4.3 ng/mL (0.0-4.0)
[2019-11-24 03:31] LABS: Alanine Aminotransferase 17 units/L (7-56); Albumin 4.5 g/dL (3.9-5); BUN/Creatinine Ratio 9; Blood Urea Nitrogen 11 mg/dL (9-20); Calcium 9.3 mg/dL (8.4-10.2); Hemolysis Index 49
[2019-11-24] MEDS ORDERED: NITROGLYCERIN DRIP 50 MG/250 ML BOTTLE IV ONE (03:38)
[2019-11-24] MEDS ORDERED: AZITHROMYCIN 500 MG in SODIUM CHLORIDE 0.9% 250ML 250 ML IV ONE (03:55)
[2019-11-24] MEDS ORDERED: cefTRIAXone/NS 1 GM/50 ML 1 GM/50 ML BAG IV ONE (03:55)
[2019-11-24 03:59] LABS: ABG Base Excess -2.9 mmol/L (-2.0-3.0); ABG HCO3 23.6 mmol/L (20.0-26.0); ABG Methemoglobin 0.6 % (0.0-1.5); ABG Oxygen Saturation 97.4 % (95.0-99.0); ABG PCO2 47.6 mm Hg; ABG PH 7.313 pH Units (7.350-7.450); ABG PO2 102.8 mm Hg (80.0-90.0)
[2019-11-24] MEDS ORDERED: ETOMIDATE 20 MG/10 ML INJ IV ONE (05:16)
[2019-11-24] MEDS ORDERED: SUCCINYLCHOLINE CHLORIDE 200 MG/10 ML INJ MDV ONE (05:16)
[2019-11-24] MEDS ORDERED: ONDANSETRON 4 MG/2 ML INJ IV PRN (05:31)
[2019-11-24 05:40] LABS: C-Reactive Protein 0.1 mg/dL (0.00-1.30)
--- NOTE | 2019-11-24 05:47 | History and Physical Report ---
History of Present Illness Date of examination: 11/24/19 Date of admission: 11/24/19 04:57 Chief complaint: Shortness of Breath History of present illness: Patient is a 64-year-old male with known history of hypertension, COPD, history of coronary artery disease, CHF with ejection fraction of 20 to 25% in August 2018 presenting to the emergency room today via EMS complaining of shortness of breath. Patient was found to be hypoxic and in respiratory distress. Patient was placed on CPAP in route to the hospital. Oxygen saturation was said to be 88%. Will suddenly start down Solu-Medrol, Lasix and magnesium. Upon arrival in the emergency room patient was found to be lethargic with an oxygen saturation of about 91% on CPAP. He was subsequently intubated. Work-up in the emergency room including chest x-ray reveals bilateral pneumonia. He had an elevated white count of 14 and also had an elevated BNP. Patient to be admitted to the ICU and placed on empiric IV antibiotics for pneumonia. He will also be tested for COVID-19 and placed on isolation prec autions. Most of the history was gotten from the ER physician as patient is currently intubated. Past History Past Medical History: arthritis, CAD, COPD, heart failure, hypertension, hyperlipidemia, stroke, other (Sepsis in 2015) Past Surgical History: PTCA, Other (Peptic Ulcer Surgery, 2 Knee surgeries, ) Social history: smoking (Occasional Smoker) Family history: no significant family history Medications and Allergies Allergies Allergy/AdvReac Type Severity Reaction Status Date / Time No Known Allergies Allergy Verified 06/23/19 08:58 Home Medications Medication Instructions Recorded Confirmed Last Taken Type lisinopriL [Zestril TAB] 10 mg PO QDAY #30 tablet 12/29/18 09/21/19 Unknown Rx Albuterol Mdi (or & Nicu Only) 2 puff IH Q4HR PRN #1 inhalation 06/25/19 09/21/19 Unknown Rx [ProAir HFA Inhaler] Aspirin [Aspirin BABY CHEW TAB] 81 mg PO QDAY #100 tab.chew 09/20/19 09/21/19 Unknown Rx AtorvaSTATin [Lipitor] 40 mg PO QHS #30 tablet 09/20/19 09/21/19 Unknown Rx Clopidogrel [Plavix] 75 mg PO QDAY #30 tablet 06/28/20 06/29/20 Unknown Rx Furosemide [Lasix TAB] 20 mg PO QDAY #30 tablet 09/20/19 09/21/19 Unknown Rx Pantoprazole [Protonix] 40 mg PO QDAY #10 tablet 09/24/19 Unknown Rx Spironolactone [Aldactone] 25 mg PO QDAY #30 tablet 09/24/19 Unknown Rx carBAMazepine [TEGretol] 100 mg PO BID #60 tablet 09/24/19 Unknown Rx carvediloL [Coreg] 3.125 mg PO BID #60 tablet 09/24/19 Unknown Rx dexAMETHasone [Dexamethasone] 6 mg PO DAILY #10 tablet 09/24/19 Unknown Rx guaiFENesin ER [Mucinex ER] 600 mg PO Q12H #14 tablet.er 09/24/19 Unknown Rx Active Meds: Active Medications Heparin Sodium (Porcine) (Heparin) 5,000 unit SUB-Q Q8HR CAR Hydrophilic Ointment (Vaseline Lip Therapy) 1 applic TP Q2HR PRN PRN Reason: Dry Lips Midazolam HCl 100 mg/ Sodium (Chloride) 100 mls @ 2 mls/hr IV TITR CAR; Protocol Last Admin: 11/24/19 02:45 Dose: 2 mg/hr, 2 mls/hr Documented by: Ceftriaxone Sodium (Rocephin/Ns 2 Gm/100 Ml) 2 gm in 100 mls @ 200 mls/hr IV Q24HR CAR; Protocol Azithromycin 500 mg/ Sodium (Chloride) 250 mls @ 250 mls/hr IV Q24HR CAR; Protocol Midazolam HCl (Versed) 2 mg IV Q10MIN PRN PRN Reason: Sedation Last Admin: 11/24/19 02:25 Dose: 2 mg Documented by: Multi-Ingred Cream/Lotion/Oil/Oint (Artificial Tears Ophth Oint) 1 applic OU Q4HR PRN PRN Reason: Dry Eye(s) Ondansetron HCl (Zofran) 4 mg IV Q8H PRN PRN Reason: Nausea And Vomiting Sodium Chloride (Sodium Chloride Flush Syringe 10 Ml) 10 ml IV BID CAR Sodium Chloride (Sodium Chloride Flush Syringe 10 Ml) 10 ml IV PRN PRN PRN Reason: LINE FLUSH Review of Systems ROS unobtainable: due to endotracheal tube, due to mental status Exam - Constitutional Vitals: Temp Pulse Resp BP Pulse Ox 98.2 F 114 H 26 H 128/95 97 11/24/19 02:25 11/24/19 05:15 11/24/19 05:15 11/24/19 05:15 11/24/19 05:15 General appearance: Present: well-nourished, other (Inntubated) - EENT Eyes: Present: PERRL, EOM intact. Absent: scleral icterus ENT: clear oral mucosa, dentition normal - Neck Neck: Present: supple, normal ROM - Respiratory Respiratory effort: normal Respiratory: bilateral: rales - Cardiovascular Rhythm: regular Heart Sounds: Present: S1 & S2. Absent: gallop, systolic murmur, diastolic murmur, rub - Extremities Extremities: no ischemia, pulses intact, pulses symmetrical, No edema, Full ROM Peripheral Pulses: within normal limits - Abdominal General gastrointestinal: Present: soft, non-tender, non-distended, normal bowel sounds. Absent: mass - Integumentary Integumentary: Present: clear, warm, dry. 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 11/24/19 02:53 ABG pH 7.313 pH Units (7.350-7.450) L 11/24/19 03:45 ABG pCO2 47.6 mm Hg 11/24/19 03:45 ABG pO2 102.8 mm Hg (80.0-90.0) H 11/24/19 03:45 ABG HCO3 23.6 mmol/L (20.0-26.0) 11/24/19 03:45 ABG O2 Saturation 97.4 % (95.0-99.0) 11/24/19 03:45 ABG O2 Content 19.0 (0.0-44) 11/24/19 03:45 ABG Base Excess -2.9 mmol/L (-2.0-3.0) L 11/24/19 03:45 ABG Hemoglobin 14.3 gm/dl (14.0-18.0) 11/24/19 03:45 ABG Carboxyhemoglobin 3.0 % (0.0-5.0) 11/24/19 03:45 ABG Methemoglobin 0.6 % (0.0-1.5) 11/24/19 03:45 Oxyhemoglobin 93.9 % (95.0-99.0) L 11/24/19 03:45 FiO2 70 % 11/24/19 03:45 Troponin T < 0.010 ng/mL (0.00-0.029) 11/24/19 02:53 Results - Labs CBC & Chem 7: 11/24/19 02:53 11/24/19 04:53 Labs: Abnormal lab results 11/24/19 11/24/19 11/24/19 Range/Units 02:53 02:53 03:45 WBC 14.3 H (4.5-11.0) K/mm3 RDW 17.2 H (13.2-15.2) % ABG pH 7.313 L (7.350-7.450) pH Units ABG pO2 102.8 H (80.0-90.0) mm Hg ABG Base Excess -2.9 L (-2.0-3.0) mmol/L Oxyhemoglobin 93.9 L (95.0-99.0) % Glucose 195 H (75-100) mg/dL Lactate Dehydrogenase (91-180) units/L CK-MB (CK-2) 4.3 H (0.0-4.0) ng/mL NT-Pro-B Natriuret Pep 1181 H (0-900) pg/mL 11/24/19 Range/Units 04:53 WBC (4.5-11.0) K/mm3 RDW (13.2-15.2) % ABG pH (7.350-7.450) pH Units ABG pO2 (80.0-90.0) mm Hg ABG Base Excess (-2.0-3.0) mmol/L Oxyhemoglobin (95.0-99.0) % Glucose 162 H (75-100) mg/dL Lactate Dehydrogenase 240 H (91-180) units/L CK-MB (CK-2) (0.0-4.0) ng/mL NT-Pro-B Natriuret Pep (0-900) pg/mL Assessment and Plan - Patient Problems (1) Acute respiratory failure Current Visit: Yes Status: Acute Plan to address problem: Possibly secondary to underlying pneumonia. Patient also has known history of COPD, CHF with ejection fraction of 20 to 25%. He is currently intubated and sedated. We will place a consult to agriculture inspector for further evaluation and recommendatio n. (2) Bilateral pneumonia Current Visit: Yes Status: Acute Plan to address problem: Patient placed on empiric IV antibiotics. We await blood culture results. Patient will be screened for COVID-19 and placed on isolation precautions. (3) CHF exacerbation Current Visit: Yes Status: Acute Plan to address problem: Patient will be placed on diuretics and will monitor inputs and outputs and also monitor daily weight. (4) DVT prophylaxis Current Visit: No Status: Acute Plan to address problem: Patient placed on subcutaneous heparin (5) Full code status Current Visit: Yes Status: Acute
[2019-11-24] MEDS: HEPARIN 5,000 UNIT/1 ML VIAL SUB-Q SCH ×3 (06:00→21:15)
[2019-11-24] MEDS ORDERED: HEPARIN 5,000 UNIT/1 ML VIAL ONE (06:01)
[2019-11-24 06:42] LABS: Anisocytosis Few; Basophils % (Manual) 0 % (0.0-1.8); Platelet Estimate Consistent w Auto; Total Cells Counted 100
[2019-11-24] MEDS: FAMOTIDINE 20 MG/2 ML INJ IV SCH ×2 (09:25→21:16)
[2019-11-24] MEDS ORDERED: fentaNYL 100 MCG/2 ML INJ IV PRN (09:55)
[2019-11-24] MEDS: fentaNYL DRIP Premix 2,000 MCG/100 ML BAG IV SCH ×2 (10:50→19:29)
--- NOTE | 2019-11-24 11:32 | Consultation ---
History of Present Illness Consult date: 11/24/19 Requesting physician: TONI KRAMER Reason for consult: pneumonia (CAP; Bilateral), other (Acute Hypoxemic Respiratory Failure on MVS) History of present illness: PULMONARY/CCM CONSULT NOTE (Full dictation # [id number]) Please see dictated notes for full details Past History Past Medical History: arthritis, CAD, COPD, heart failure, hypertension, hyperlipidemia, stroke, other (Sepsis in 2015) Past Surgical History: PTCA, Other (Peptic Ulcer Surgery, 2 Knee surgeries, ) Social history: smoking (Occasional Smoker) Family history: no significant family history Medications and Allergies Allergies Allergy/AdvReac Type Severity Reaction Status Date / Time No Known Allergies Allergy Verified 06/23/19 08:58 Home Medications Medication Instructions Recorded Confirmed Last Taken Type lisinopriL [Zestril TAB] 10 mg PO QDAY #30 tablet 12/29/18 11/24/19 Unknown Rx Albuterol Mdi (or & Nicu Only) 2 puff IH Q4HR PRN #1 inhalation 06/25/19 11/24/19 Unknown Rx [ProAir HFA Inhaler] Aspirin [Aspirin BABY CHEW TAB] 81 mg PO QDAY #100 tab.chew 09/20/19 11/24/19 Unknown Rx AtorvaSTATin [Lipitor] 40 mg PO QHS #30 tablet 09/20/19 11/24/19 Unknown Rx Clopidogrel [Plavix] 75 mg PO QDAY #30 tablet 09/20/19 11/24/19 Unknown Rx Furosemide [Lasix TAB] 20 mg PO QDAY #30 tablet 09/20/19 11/24/19 Unknown Rx Pantoprazole [Protonix] 40 mg PO QDAY #10 tablet 09/24/19 11/24/19 Unknown Rx Spironolactone [Aldactone] 25 mg PO QDAY #30 tablet 09/24/19 11/24/19 Unknown Rx carBAMazepine [TEGretol] 100 mg PO BID #60 tablet 09/24/19 Unknown Rx carvediloL [Coreg] 3.125 mg PO BID #60 tablet 09/24/19 11/24/19 Unknown Rx dexAMETHasone [Dexamethasone] 6 mg PO DAILY #10 tablet 09/24/19 Unknown Rx guaiFENesin ER [Mucinex ER] 600 mg PO Q12H #14 tablet.er 09/24/19 Unknown Rx Active Meds: Active Medications Famotidine (Pepcid) 20 mg IV BID [facility] Last Admin: 11/24/19 09:25 Dose: 20 mg Documented by: Fentanyl (Sublimaze) 50 mcg IV Q10MIN PRN PRN Reason: ANALGESIA Furosemide (Lasix) 20 mg IV 0600,1800 CAR Heparin Sodium (Porcine) (Heparin) 5,000 unit SUB-Q Q8HR [facility] Last Admin: 11/24/19 06:00 Dose: 5,000 unit Documented by: Hydrophilic Ointment (Vaseline Lip Therapy) 1 applic TP Q2HR PRN PRN Reason: Dry Lips Midazolam HCl 100 mg/ Sodium (Chloride) 100 mls @ 2 mls/hr IV TITR [facility]; Protocol Last Titration: 11/24/19 11:14 Dose: 4 mg/hr, 4 mls/hr Documented by: Ceftriaxone Sodium (Rocephin/Ns 2 Gm/100 Ml) 2 gm in 100 mls @ 200 mls/hr IV Q24HR@2200 CAR; Protocol Azithromycin 500 mg/ Sodium (Chloride) 250 mls @ 250 mls/hr IV Q24HR@2200 CAR; Protocol Fentanyl Citrate (Fentanyl Drip Premix) 2,000 mcg in 100 mls @ 5.67 mls/hr IV TITR [facility]; Protocol Last Titration: 11/24/19 11:05 Dose: 2 mcg/kg/hr, 11.34 mls/hr Documented by: Midazolam HCl (Versed) 2 mg IV Q10MIN PRN PRN Reason: Sedation Last Admin: 11/24/19 02:25 Dose: 2 mg Documented by: Multi-Ingred Cream/Lotion/Oil/Oint (Artificial Tears Ophth Oint) 1 applic OU Q4HR PRN PRN Reason: Dry Eye(s) Ondansetron HCl (Zofran) 4 mg IV Q8H PRN PRN Reason: Nausea And Vomiting Sodium Chloride (Sodium Chloride Flush Syringe 10 Ml) 10 ml IV BID [facility] Last Admin: 11/24/19 09:19 Dose: 10 ml Documented by: Sodium Chloride (Sodium Chloride Flush Syringe 10 Ml) 10 ml IV PRN PRN PRN Reason: LINE FLUSH Physical Examination Vital signs: Vital Signs Temp Pulse Resp BP Pulse Ox 98.2 F 135 H 32 H 210/124 91 11/24/19 02:25 11/24/19 02:25 11/24/19 02:25 11/24/19 02:25 11/24/19 02:25 Results - Laboratory Findings CBC and BMP: 11/24/19 02:53 11/24/19 04:53 ABG ABG pH 7.313 pH Units (7.350-7.450) L 11/24/19 03:45 ABG pCO2 47.6 mm Hg 11/24/19 03:45 ABG pO2 102.8 mm Hg (80.0-90.0) H 11/24/19 03:45 ABG O2 Saturation 97.4 % (95.0-99.0) 11/24/19 03:45 Abnormal lab findings: Abnormal Labs 11/24/19 11/24/19 11/24/19 02:53 02:53 03:45 WBC 14.3 H RDW 17.2 H Seg Neutrophils # Man 8.3 H Monocytes # (Manual) 0.9 H ABG pH 7.313 L ABG pO2 102.8 H ABG Base Excess -2.9 L Oxyhemoglobin 93.9 L Glucose 195 H Lactic Acid Lactate Dehydrogenase CK-MB (CK-2) 4.3 H NT-Pro-B Natriuret Pep 1181 H 11/24/19 11/24/19 04:53 04:53 WBC RDW Seg Neutrophils # Man Monocytes # (Manual) ABG pH ABG pO2 ABG Base Excess Oxyhemoglobin Glucose 162 H Lactic Acid 2.40 H* Lactate Dehydrogenase 240 H CK-MB (CK-2) NT-Pro-B Natriuret Pep
--- NOTE | 2019-11-24 15:16 | Consultation ---
PULMONARY CRITICAL CARE CONSULTATION NOTE CONSULTING PHYSICIAN: Johnnie Atkinson M.D. REASON FOR CONSULTATION: Acute hypoxemic respiratory failure, on mechanical ventilatory support, pneumonia. CHIEF COMPLAINT AND HISTORY OF PRESENT ILLNESS: The patient is a 64-year-old male with a past medical history significant amongst other things for a diagnosis of COPD, congestive heart failure and a prior cerebrovascular accident. He was brought in after he was found by EMS hypoxemic in respiratory distress. He received systemic steroids, Lasix, magnesium. He remained hypoxic. Bilevel positive airway pressure ventilation therapy was tried. In the Emergency Room, he was decompensated and he was intubated for further management. As part of the workup, he was also found to have bilateral pulmonary infiltrates consistent with pneumonia as well as bilateral lower extremity edema. We are asked to assist with management. When I stopped by to see him, he was resting in bed. He was sedated. His oxygenation is improving. I do not have any history of vomiting or overt aspiration. With regards to the patient's tobacco use/abuse history, he is described as a current some day smoker. Also, I do not have any history of contact with anyone with known COVID-19 infection. This really is as much of the history of presentation as I have. PAST MEDICAL HISTORY: Hypertension, cerebrovascular accident, coronary artery disease, congestive heart failure, history of arthritis, history of COPD, history of recent sepsis actually in 2015. PAST SURGICAL HISTORY: He has had coronary stent placement. He has had peptic ulcer surgery and has had 2 knee surgeries. MEDICATIONS: He was on at the time I stopped by to see him were reviewed, pertinent medications included the following: Zithromax 500 mg IV daily, Rocephin 2 g IV daily, Pepcid 20 mg IV b.i.d., fentanyl drip was going at 2 mcg/kg per hour, I believe a Versed drip was also going at 2 mg per hour, Lasix 20 mg IV b.i.d., heparin 5000 units subcutaneous q. 8 hours, Zofran 4 mg IV q. 8 hours p.r.n. nausea and vomiting. ALLERGIES: No known drug allergies. DIET: Obese gentleman, acute weight loss or gain history is unknown. SOCIAL HISTORY: Unclear if he lives in the community or in a healthcare-associated facility at this point. He has a history of sometimes smoking. FAMILY HISTORY: Otherwise unknown and unobtainable. REVIEW OF SYSTEMS: Unobtainable secondary to the patient's medical and mental condition. Since he has been here, no gross hematochezia or melena, no gross hematuria, no hematemesis, no bloody tracheal secretions, no witnessed seizures. Review of systems otherwise as in the body of history above or unobtainable. PHYSICAL EXAMINATION: VITAL SIGNS: At presentation and since, he has been afebrile, temperature 98.2 at presentation, pulse 135, respiratory rate 32, blood pressure 210/124, O2 sats were 91%, inspired oxygen concentration at that time was not recorded. When I stopped by to see him, his O2 sats were 98%, that was on the assist control mode of ventilation, tidal volume of 500, rate of 20, PEEP of 6 on 40% FiO2. GENERAL: He is an elderly looking obese gentleman, normocephalic, intubated on the mechanical ventilator with mildly increased respiratory effort at rest. HEAD, EYES, EARS, NOSE AND THROAT: Anicteric. No conjunctival erythema. Oropharynx was moist. ET tube was taped around 23-24 cm at the lips. No gross jugular venous distention, no thyromegaly. NECK: Grossly, there were no palpable lymph nodes in the supraclavicular or submandibular lymph node chains. LUNGS: Auscultation of both lung rodríguez, faint bibasilar rhonchi, no active wheezing. HEART: Heart sounds 1 and 2 are heard at the time of my evaluation, regular rate and rhythm without overt rubs or murmurs. ABDOMEN: Soft. Bowel sounds are positive, nontender. It is protuberant. No palpable hepatosplenomegaly. EXTREMITIES: Without overt digital clubbing or cyanosis. He had trace to 1+ bipedal pitting edema. Pedal pulses were 2+ bilaterally. NEUROLOGIC: He was sedated. Pupils are equal, round, about 2 mm, sluggishly reactive to light. Extraocular muscle movements could not be assessed. He had some spontaneous and withdrawal movements to extremities. SKIN: Normal turgor in the areas examined without overt cellulitis or rash. PSYCHIATRIC: Mood and affect could not be assessed due to sedation. LABORATORY DATA: From my review as follows: Admission white cell count 14,300, hemoglobin of 14.2, hematocrit 44.5, platelet count 215. No band forms on the manual differential. Arterial blood gas at presentation showed a pH of 7.31, pCO2 of 48, pO2 of 103, that was on 70% FiO2 at that time. Serum sodium was 143, potassium 4.1, chloride 104, bicarbonate 22, BUN 11, creatinine 1.2, glucose 195. Lactic acid level was 2.4, 2.50 on the repeat test. Liver function tests essentially within normal limits. Troponin within normal limits. BNP was elevated at 1181. Two sets of blood cultures, no growth to date. Chest x-ray has been reviewed. It shows diffuse bilateral infiltrates, slightly rotated to the right. No overt cardiomegaly. ET tube is in good position with the tip at the lower level of the clavicular heads. Compared to x-ray from 09/24/2019, the infiltrates are new. ASSESSMENT: 1. Acute hypoxemic respiratory failure, now on mechanical ventilatory support. 2. Bilateral pneumonia, community acquired. 3. Person under investigation for COVID-19 infection. 4. Acute congestive heart failure exacerbation. 5. History of cerebrovascular accident. 6. Acute chronic obstructive pulmonary disease exacerbation. 7. Hypertension and hypertensive urgency at presentation. 8. History of arthritis. 9. Leukocytosis. 10. Lactic acidosis. 11. Oropharyngeal dysphagia. PLAN: We will keep him on full mechanical ventilatory support. We will keep the sed rate at 20. In the meantime, I will repeat an arterial blood gas in the morning. Oxygen will be weaned to keep sats greater than or equal to about 92%. Ventilator-associated pneumonia bundle will be introduced. We will continue airborne and contact precautions for possible COVID-19 infection, especially with his history of COPD. I will begin systemic steroids, also should be beneficial from the COVID-19 standpoint. I will also start long-acting bronchodilators as well as inhaled corticosteroids. We will try and use an MDI if we do have that. He is on a closed circuit at this time, so hopefully no aerosolization. Empiric community-acquired pneumonia therapy will be continued. I will order procalcitonin levels and/or CRP levels to core maker helper clinical decision making. He is appropriately on GI prophylaxis with Pepcid as well as DVT prophylaxis. Acute coronary syndrome workup will be at the behest of the attending. No evidence of non-ST elevation FL at this time. Chronic disease medication management will be deferred to the attending physician. Flu and pneumonia vaccination will be addressed per protocol. Thank you very much for the consult. We will follow along and make further recommendations as picture progresses/becomes clearer. Glycemic control will be targeted for blood glucose of 140-180 mg/dL while critically ill. Thank you very much for the consult. We will follow along and make further recommendations as picture progresses/becomes clearer. He is critically ill on life-sustaining interventions including mechanical ventilatory support, at high risk of from cardiopulmonary system decompensation. I should mention I will get him off the Versed to reduce the development of delirium, which could be detrimental in this age group. At this time, I spent about 35-40 minutes of critical care time without overlap and excluding any procedural time that may be necessary. I will also be sending a tracheal aspirate. JOB# [id number] ANU/NATALIIA SERRATO
--- NOTE | 2019-11-24 15:41 | Consultation ---
History of Present Illness - Reason for Consult Consult date: 11/24/19 - History of Present Illness 64-year-old male past medical history hypertension, COPD, CAD, CHF with reduced ejection fraction under the hospital with shortness of breath. On presentation he was found to be hypoxic, and was subsequently intubated as he was lethargic and unable to maintain saturations with CPAP. History is obtained from the chart as the patient is currently intubated. Afebrile since admission with a white count of 14. COVID-19 testing is negative. Currently on ceftriaxone and azithromycin. Blood and urine cultures are pending Imaging personally reviewed: Chest x-ray: Bilateral pneumonia Past History Past Medical History: arthritis, CAD, COPD, heart failure, hypertension, hyperlipidemia, stroke, other (Sepsis in 2015) Past Surgical History: PTCA, Other (Peptic Ulcer Surgery, 2 Knee surgeries, ) Social history: smoking (Occasional Smoker) Family history: no significant family history Medications and Allergies Allergies Allergy/AdvReac Type Severity Reaction Status Date / Time No Known Allergies Allergy Verified 06/23/19 08:58 Home Medications Medication Instructions Recorded Confirmed Last Taken Type lisinopriL [Zestril TAB] 10 mg PO QDAY #30 tablet 12/29/18 11/24/19 Unknown Rx Albuterol Mdi (or & Nicu Only) 2 puff IH Q4HR PRN #1 inhalation 06/25/19 11/24/19 Unknown Rx [ProAir HFA Inhaler] Aspirin [Aspirin BABY CHEW TAB] 81 mg PO QDAY #100 tab.chew 09/20/19 11/24/19 Unknown Rx AtorvaSTATin [Lipitor] 40 mg PO QHS #30 tablet 09/20/19 11/24/19 Unknown Rx Clopidogrel [Plavix] 75 mg PO QDAY #30 tablet 09/20/19 11/24/19 Unknown Rx Furosemide [Lasix TAB] 20 mg PO QDAY #30 tablet 09/20/19 11/24/19 Unknown Rx Pantoprazole [Protonix] 40 mg PO QDAY #10 tablet 09/24/19 11/24/19 Unknown Rx Spironolactone [Aldactone] 25 mg PO QDAY #30 tablet 09/24/19 11/24/19 Unknown Rx carBAMazepine [TEGretol] 100 mg PO BID #60 tablet 09/24/19 Unknown Rx carvediloL [Coreg] 3.125 mg PO BID #60 tablet 09/24/19 11/24/19 Unknown Rx dexAMETHasone [Dexamethasone] 6 mg PO DAILY #10 tablet 09/24/19 Unknown Rx guaiFENesin ER [Mucinex ER] 600 mg PO Q12H #14 tablet.er 09/24/19 Unknown Rx Active Meds: Active Medications Famotidine (Pepcid) 20 mg IV BID [facility] Last Admin: 11/24/19 09:25 Dose: 20 mg Documented by: Fentanyl (Sublimaze) 50 mcg IV Q10MIN PRN PRN Reason: ANALGESIA Furosemide (Lasix) 20 mg IV 0600,1800 CAR Heparin Sodium (Porcine) (Heparin) 5,000 unit SUB-Q Q8HR [facility] Last Admin: 11/24/19 14:45 Dose: 5,000 unit Documented by: Hydrophilic Ointment (Vaseline Lip Therapy) 1 applic TP Q2HR PRN PRN Reason: Dry Lips Ceftriaxone Sodium (Rocephin/Ns 2 Gm/100 Ml) 2 gm in 100 mls @ 200 mls/hr IV Q24HR@2200 CAR; Protocol Azithromycin 500 mg/ Sodium (Chloride) 250 mls @ 250 mls/hr IV Q24HR@2200 CAR; Protocol Fentanyl Citrate (Fentanyl Drip Premix) 2,000 mcg in 100 mls @ 5.67 mls/hr IV TITR CAR; Protocol Last Titration: 11/24/19 11:05 Dose: 2 mcg/kg/hr, 11.34 mls/hr Documented by: Midazolam HCl (Versed) 2 mg IV Q10MIN PRN PRN Reason: Sedation Last Admin: 11/24/19 02:25 Dose: 2 mg Documented by: Multi-Ingred Cream/Lotion/Oil/Oint (Artificial Tears Ophth Oint) 1 applic OU Q4HR PRN PRN Reason: Dry Eye(s) Ondansetron HCl (Zofran) 4 mg IV Q8H PRN PRN Reason: Nausea And Vomiting Sodium Chloride (Sodium Chloride Flush Syringe 10 Ml) 10 ml IV BID [facility] Last Admin: 11/24/19 09:19 Dose: 10 ml Documented by: Sodium Chloride (Sodium Chloride Flush Syringe 10 Ml) 10 ml IV PRN PRN PRN Reason: LINE FLUSH Review of Systems ROS unobtainable: due to endotracheal tube Physical Examination - Physical Exam Narrative exam: Physical exam deferred due to PPE conservation strategy. Please refer to primary team's note. - Constitutional Vitals: Vital Signs Temp Pulse Resp BP Pulse Ox 97.1 F L 72 20 98/63 93 11/24/19 12:00 11/24/19 15:05 11/24/19 12:00 11/24/19 15:05 11/24/19 15:05 Temperature -Last 24 Hours Temperature 97.1 F Temperature 98.6 F Temperature 98.2 F Results - Labs CBC & Chem 7: 11/24/19 02:53 11/24/19 04:53 Labs: Abnormal lab results 11/24/19 11/24/19 11/24/19 Range/Units 02:53 02:53 03:45 WBC 14.3 H (4.5-11.0) K/mm3 RDW 17.2 H (13.2-15.2) % Seg Neutrophils # Man 8.3 H (1.8-7.7) K/mm3 Monocytes # (Manual) 0.9 H (0.0-0.8) K/mm3 ABG pH 7.313 L (7.350-7.450) pH Units ABG pO2 102.8 H (80.0-90.0) mm Hg ABG Base Excess -2.9 L (-2.0-3.0) mmol/L Oxyhemoglobin 93.9 L (95.0-99.0) % Glucose 195 H (75-100) mg/dL POC Glucose (70-105) Lactic Acid (0.7-2.0) mmol/L Lactate Dehydrogenase (91-180) units/L CK-MB (CK-2) 4.3 H (0.0-4.0) ng/mL NT-Pro-B Natriuret Pep 1181 H (0-900) pg/mL 11/24/19 11/24/19 11/24/19 Range/Units 04:53 04:53 10:37 WBC (4.5-11.0) K/mm3 RDW (13.2-15.2) % Seg Neutrophils # Man (1.8-7.7) K/mm3 Monocytes # (Manual) (0.0-0.8) K/mm3 ABG pH (7.350-7.450) pH Units ABG pO2 (80.0-90.0) mm Hg ABG Base Excess (-2.0-3.0) mmol/L Oxyhemoglobin (95.0-99.0) % Glucose 162 H (75-100) mg/dL POC Glucose (70-105) Lactic Acid 2.40 H* 2.50 H* (0.7-2.0) mmol/L Lactate Dehydrogenase 240 H (91-180) units/L CK-MB (CK-2) (0.0-4.0) ng/mL NT-Pro-B Natriuret Pep (0-900) pg/mL 11/24/19 11/24/19 Range/Units 12:21 14:50 WBC (4.5-11.0) K/mm3 RDW (13.2-15.2) % Seg Neutrophils # Man (1.8-7.7) K/mm3 Monocytes # (Manual) (0.0-0.8) K/mm3 ABG pH (7.350-7.450) pH Units ABG pO2 (80.0-90.0) mm Hg ABG Base Excess (-2.0-3.0) mmol/L Oxyhemoglobin (95.0-99.0) % Glucose (75-100) mg/dL POC Glucose 145 H 143 H (70-105) Lactic Acid (0.7-2.0) mmol/L Lactate Dehydrogenase (91-180) units/L CK-MB (CK-2) (0.0-4.0) ng/mL NT-Pro-B Natriuret Pep (0-900) pg/mL Assessment and Plan Cultures: Blood culture 11/24/2019 pending Urine culture 11/24/2019 pending A/P: 64-year-old male past medical history hypertension, COPD, CAD, CHF with reduced ejection fraction admitted with acute hypoxic respiratory failure likely secondary to pneumonia #Acute hypoxemic respiratory failure: Likely secondary to pneumonia, COVID-19 testing negative so far. Currently intubated. #Bilateral pneumonia: Initial COVID-19 testing negative. Recommend repeat testing continue. Antibiotics for now. Obtain procalcitonin. #CHF #COPD Recs: -Continue ceftriaxone 2 gm IV qday and azithromycin 500 mg PO qday -Steroids per ICU -Order procalcitonin for morning labs -Repeat COVID-19 testing tomorrow. Thank you for the consult, we will continue to follow. Michael Wade MD [facility] M: [phone] O: [phone] F: [phone]
--- NOTE | 2019-11-24 15:42 | Event Note ---
Date: 11/24/19 Patient seen and examined, continues on ventilatory support. 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
[2019-11-24] MEDS: FUROSEMIDE 20 MG/2 ML INJ IV SCH (18:50)
[2019-11-24] MEDS: cefTRIAXone/NS 2 GM/100 ML 2 GM/100 ML BAG IV SCH (21:14)
[2019-11-24] MEDS ORDERED: AZITHROMYCIN 500 MG in SODIUM CHLORIDE 0.9% 250ML 250 ML IV SCH (22:00)
[2019-11-25] MEDS: fentaNYL DRIP Premix 2,000 MCG/100 ML BAG IV SCH ×3 (02:31→21:18)
[2019-11-25 03:44] LABS: ABG Base Excess -0.5 mmol/L (-2.0-3.0); ABG Methemoglobin 0.7 % (0.0-1.5); ABG Oxygen Saturation 90.2 % (95.0-99.0); ABG PCO2 50.1 mm Hg; ABG PH 7.333 pH Units (7.350-7.450); ABG PO2 61.2 mm Hg (80.0-90.0)
--- NOTE | 2019-11-25 03:50 | XRay Report ---
CHEST 1 VIEW INDICATION: follow up respiratory failure. COMPARISON: Previous day. FINDINGS: Support devices: Unchanged. Heart: Stable. Lungs/Pleura: Improving bibasilar opacities. Moderate residual. Additional findings: None. IMPRESSION: Interval improvement. Signer Name: Heriberto Johnson MD Signed: 11/25/2019 3:46 AM Workstation Name: [id number]
[2019-11-25] MEDS: HEPARIN 5,000 UNIT/1 ML VIAL SUB-Q SCH ×3 (05:04→21:17)
[2019-11-25] MEDS: FUROSEMIDE 20 MG/2 ML INJ IV SCH ×2 (05:04→18:27)
[2019-11-25 05:56] LABS: Basophils % (Auto) 0.3 % (0.0-1.8); Hematocrit 40.4 % (35.5-45.6); Lymphocytes # (Auto) 1.5 K/mm3 (1.2-5.4); Lymphocytes % (Auto) 10.8 % (13.4-35.0); Mean Corpuscular HGB Conc 32 % (32-34); Mean Corpuscular Volume 91 fl (84-94); Monocytes # (Auto) 1.2 K/mm3 (0.0-0.8); Monocytes % (Auto) 8.7 % (0.0-7.3); Platelet Count 197 K/mm3 (140-440); Red Blood Count 4.47 M/mm3 (3.65-5.03); Red Cell Distribution Width 17.1 % (13.2-15.2)
[2019-11-25 06:05] LABS: BUN/Creatinine Ratio 18; Blood Urea Nitrogen 23 mg/dL (9-20); Calcium 9.1 mg/dL (8.4-10.2); Hemolysis Index 9
[2019-11-25 06:06] LABS: INR 0.94 (0.87-1.13)
--- NOTE | 2019-11-25 08:44 | Progress Note ---
Assessment and Plan Assessment and plan: Patient is a 64-year-old male with known history of hypertension, COPD, history of coronary artery disease, CHF with ejection fraction of 20 to 25% in August 2018 presenting to the emergency room today via EMS complaining of shortness of breath. Patient was found to be hypoxic and in respiratory distress. Patient was placed on CPAP in route to the hospital. Oxygen saturation was said to be 88%. Started on Solu-Medrol, Lasix and magnesium in ED, patient was also found to be lethargic with an oxygen saturation of about 91% on CPAP. He was subsequently intubated. Work-up in the emergency room including chest x-ray reveals bilateral pneumonia. He had an elevated white count of 14 and also had an elevated BNP. Patient to be admitted to the ICU and placed on empiric IV antibiotics for pneumonia. He will also be tested for COVID-19 and placed on isolation precautions. Most of the history was gotten from the ER physician as patient is currently intubated. Acute hypoxemic respiratory failure Bilateral pneumonia, community acquired, - COIVD 19 NEGATIVE Person under investigation for COVID-19 infection. Acute congestive heart failure exacerbation Presumed systolic History of cerebrovascular accident. Tobacco use disorder Acute chronic obstructive pulmonary disease exacerbation. Hypertension and hypertensive urgency at presentation. History of arthritis. Leukocytosis. Lactic acidosis. Oropharyngeal dysphagia S/P Knee surgery Peptic Ulcer Surgery Plan Continue supportive care Wean from vent as tolerated Continue ceftriaxone 2 gm IV qday and azithromycin 500 mg PO qday per ID Discuss with hangar attendant if to continue steroids ID Considering Repeat Covid 19 test continue diuresis Aspiration precautions DVT/GI prophy The high probability of a clinically significant, sudden or life threatening deterioration of the [Respiratory, cardiovascular & neurological] system(s) required my full and direct attention, intervention and personal management. The aggregate critical care time was [35] minutes without overlap. Time includes spent on [x] Data Review and interpretation [x] Patient assessment and monitoring of vital signs [x] Documentation [x] Medication orders and management History Interval history: Patient seen and examined, still on the ventilator. Follows commands Hospitalist Physical - Physical exam Narrative exam: General appearance: Present: well-nourished, other (Inntubated), opens eyes to names and follows command - EENT Eyes: Present: PERRL, EOM intact. Absent: scleral icterus ENT: clear oral mucosa, dentition normal - Neck Neck: Present: supple, normal ROM - Respiratory Respiratory effort: normal, mechanical ventilation Respiratory: bilateral: rales - Cardiovascular Rhythm: regular Heart Sounds: Present: S1 & S2. Absent: gallop, systolic murmur, diastolic murmur, rub - Extremities Extremities: no ischemia, pulses intact, pulses symmetrical, No edema, Full ROM Peripheral Pulses: within normal limits - Abdominal General gastrointestinal: Present: soft, non-tender, non-distended, normal bowel sounds. Absent: mass - Integumentary Integumentary: Present: clear, warm, dry. Absent: rash - Musculoskeletal Musculoskeletal: strength equal bilaterally - Psychiatric Psychiatric: cooperative - Constitutional Vitals: Temp Pulse Resp BP Pulse Ox 99.3 F 85 21 83/58 100 11/25/19 04:00 11/25/19 06:51 11/25/19 06:51 11/25/19 06:51 11/25/19 06:51 General appearance: Present: well-nourished, other (Inntubated) HEART Score - HEART Score Troponin: Troponin T < 0.010 ng/mL (0.00-0.029) 11/24/19 02:53 Results - Labs CBC & Chem 7: 11/25/19 05:11 11/25/19 05:11 Labs: Laboratory Last Values WBC 13.7 K/mm3 (4.5-11.0) H 11/25/19 05:11 RBC 4.47 M/mm3 (3.65-5.03) 11/25/19 05:11 Hgb 13.0 gm/dl (11.8-15.2) 11/25/19 05:11 Hct 40.4 % (35.5-45.6) 11/25/19 05:11 MCV 91 fl (84-94) 11/25/19 05:11 MCH 29 pg (28-32) 11/25/19 05:11 MCHC 32 % (32-34) 11/25/19 05:11 RDW 17.1 % (13.2-15.2) H 11/25/19 05:11 Plt Count 197 K/mm3 (140-440) 11/25/19 05:11 Lymph % (Auto) 10.8 % (13.4-35.0) L 11/25/19 05:11 [place] % (Auto) 8.7 % (0.0-7.3) H 11/25/19 05:11 Eos % (Auto) 0.0 % (0.0-4.3) 11/25/19 05:11 Baso % (Auto) 0.3 % (0.0-1.8) 11/25/19 05:11 Lymph # 1.5 K/mm3 (1.2-5.4) 11/25/19 05:11 Chester # 1.2 K/mm3 (0.0-0.8) H 11/25/19 05:11 Eos # 0.0 K/mm3 (0.0-0.4) 11/25/19 05:11 Baso # 0.0 K/mm3 (0.0-0.1) 11/25/19 05:11 Add Manual Diff Complete 11/24/19 02:53 Total Counted 100 11/24/19 02:53 Seg Neutrophils % 80.2 % (40.0-70.0) H 11/25/19 05:11 Seg Neuts % (Manual) 58.0 % (40.0-70.0) 11/24/19 02:53 Band Neutrophils % 0 % 11/24/19 02:53 Lymphocytes % (Manual) 33.0 % (13.4-35.0) 11/24/19 02:53 Reactive Lymphs % (Man) 0 % 11/24/19 02:53 Monocytes % (Manual) 6.0 % (0.0-7.3) 11/24/19 02:53 Eosinophils % (Manual) 3.0 % (0.0-4.3) 11/24/19 02:53 Basophils % (Manual) 0 % (0.0-1.8) 11/24/19 02:53 Metamyelocytes % 0 % 11/24/19 02:53 Myelocytes % 0 % 11/24/19 02:53 Promyelocytes % 0 % 11/24/19 02:53 Blast Cells % 0 % 11/24/19 02:53 Nucleated RBC % Not Reportable 11/24/19 02:53 Seg Neutrophils # 11.0 K/mm3 (1.8-7.7) H 11/25/19 05:11 Seg Neutrophils # Man 8.3 K/mm3 (1.8-7.7) H 11/24/19 02:53 Band Neutrophils # 0.0 K/mm3 11/24/19 02:53 Lymphocytes # (Manual) 4.7 K/mm3 (1.2-5.4) 11/24/19 02:53 Abs React Lymphs (Man) 0.0 K/mm3 11/24/19 02:53 Monocytes # (Manual) 0.9 K/mm3 (0.0-0.8) H 11/24/19 02:53 Eosinophils # (Manual) 0.4 K/mm3 (0.0-0.4) 11/24/19 02:53 Basophils # (Manual) 0.0 K/mm3 (0.0-0.1) 11/24/19 02:53 Metamyelocytes # 0.0 K/mm3 11/24/19 02:53 Myelocytes # 0.0 K/mm3 11/24/19 02:53 Promyelocytes # 0.0 K/mm3 11/24/19 02:53 Blast Cells # 0.0 K/mm3 11/24/19 02:53 WBC Morphology Not Reportable 11/24/19 02:53 Hypersegmented Neuts Not Reportable 11/24/19 02:53 Hyposegmented Neuts Not Reportable 11/24/19 02:53 Hypogranular Neuts Not Reportable 11/24/19 02:53 Smudge Cells Not Reportable 11/24/19 02:53 Toxic Granulation Not Reportable 11/24/19 02:53 Toxic Vacuolation Not Reportable 11/24/19 02:53 Dohle Bodies Not Reportable 11/24/19 02:53 Pelger-Huet Anomaly Not Reportable 11/24/19 02:53 Hector Rods Not Reportable 11/24/19 02:53 Platelet Estimate Consistent w auto 11/24/19 02:53 Clumped Platelets Not Reportable 11/24/19 02:53 Plt Clumps, EDTA Not Reportable 11/24/19 02:53 Large Platelets Not Reportable 11/24/19 02:53 Giant Platelets Not Reportable 11/24/19 02:53 Platelet Satelliting Not Reportable 11/24/19 02:53 Plt Morphology Comment Not Reportable 11/24/19 02:53 RBC Morphology Not Reportable 11/24/19 02:53 Dimorphic RBCs Not Reportable 11/24/19 02:53 Polychromasia Not Reportable 11/24/19 02:53 Hypochromasia Not Reportable 11/24/19 02:53 Poikilocytosis Not Reportable 11/24/19 02:53 Anisocytosis Few 11/24/19 02:53 Microcytosis Not Reportable 11/24/19 02:53 Macrocytosis Not Reportable 11/24/19 02:53 Spherocytes Not Reportable 11/24/19 02:53 Pappenheimer Bodies Not Reportable 11/24/19 02:53 Sickle Cells Not Reportable 11/24/19 02:53 Target Cells Not Reportable 11/24/19 02:53 Tear Drop Cells Not Reportable 11/24/19 02:53 Ovalocytes Not Reportable 11/24/19 02:53 Helmet Cells Not Reportable 11/24/19 02:53 [place] Bodies Not Reportable 11/24/19 02:53 [place] Rings Not Reportable 11/24/19 02:53 Oc Cells Not Reportable 11/24/19 02:53 Bite Cells Not Reportable 11/24/19 02:53 Crenated Cell Not Reportable 11/24/19 02:53 Elliptocytes Not Reportable 11/24/19 02:53 Acanthocytes (Spur) Not Reportable 11/24/19 02:53 Rouleaux Not Reportable 11/24/19 02:53 Hemoglobin C Crystals Not Reportable 11/24/19 02:53 Schistocytes Not Reportable 11/24/19 02:53 Malaria parasites Not Reportable 11/24/19 02:53 Clifford Bodies Not Reportable 11/24/19 02:53 Hem Pathologist Commnt No 11/24/19 02:53 PT 12.7 Sec. (12.2-14.9) 11/25/19 05:11 INR 0.94 (0.87-1.13) 11/25/19 05:11 ABG pH 7.333 pH Units (7.350-7.450) L 11/25/19 03:18 ABG pCO2 50.1 mm Hg 11/25/19 03:18 ABG pO2 61.2 mm Hg (80.0-90.0) L 11/25/19 03:18 ABG HCO3 26.0 mmol/L (20.0-26.0) 11/25/19 03:18 ABG O2 Saturation 90.2 % (95.0-99.0) L 11/25/19 03:18 ABG O2 Content 17.0 (0.0-44) 11/25/19 03:18 ABG Base Excess -0.5 mmol/L (-2.0-3.0) 11/25/19 03:18 ABG Hemoglobin 13.7 gm/dl (14.0-18.0) L 11/25/19 03:18 ABG Carboxyhemoglobin 1.6 % (0.0-5.0) 11/25/19 03:18 ABG Methemoglobin 0.7 % (0.0-1.5) 11/25/19 03:18 Oxyhemoglobin 88.2 % (95.0-99.0) L 11/25/19 03:18 FiO2 40 % 11/25/19 03:18 Sodium 145 mmol/L (137-145) 11/25/19 05:11 Potassium 4.7 mmol/L (3.6-5.0) 11/25/19 05:11 Chloride 106.6 mmol/L (98-107) 11/25/19 05:11 Carbon Dioxide 25 mmol/L (22-30) 11/25/19 05:11 Anion Gap 18 mmol/L 11/25/19 05:11 BUN 23 mg/dL (9-20) H 11/25/19 05:11 Creatinine 1.3 mg/dL (0.8-1.3) 11/25/19 05:11 Estimated GFR > 60 ml/min 11/25/19 05:11 BUN/Creatinine Ratio 18 % 11/25/19 05:11 Glucose 110 mg/dL (75-100) H 11/25/19 05:11 POC Glucose 99 (70-105) 11/25/19 05:40 Lactic Acid 2.50 mmol/L (0.7-2.0) H* 11/24/19 10:37 Calcium 9.1 mg/dL (8.4-10.2) 11/25/19 05:11 Ferritin 84.4 ng/mL (30.0-300.0) 11/24/19 04:53 Total Bilirubin 0.40 mg/dL (0.1-1.2) 11/24/19 02:53 AST 22 units/L (5-40) 11/24/19 02:53 ALT 17 units/L (7-56) 11/24/19 02:53 Alkaline Phosphatase 89 units/L (35-129) 11/24/19 02:53 Lactate Dehydrogenase 240 units/L (91-180) H 11/24/19 04:53 Total Creatine Kinase 141 units/L (55-170) 11/24/19 02:53 CK-MB (CK-2) 4.3 ng/mL (0.0-4.0) H 11/24/19 02:53 CK-MB (CK-2) Rel Index 3.0 (0-4) 11/24/19 02:53 Troponin T < 0.010 ng/mL (0.00-0.029) 11/24/19 02:53 C-Reactive Protein 0.10 mg/dL (0.00-1.30) 11/24/19 04:53 NT-Pro-B Natriuret Pep 1181 pg/mL (0-900) H 11/24/19 02:53 Total Protein 7.4 g/dL (6.3-8.2) 11/24/19 02:53 Albumin 4.5 g/dL (3.9-5) 11/24/19 02:53 Albumin/Globulin Ratio 1.6 % 11/24/19 02:53 Coronavirus (PCR) Negative (Negative) 11/24/19 Unknown Microbiology: Microbiology 11/24/19 04:53 Peripheral/Venous Blood Culture - Preliminary NO GROWTH AFTER 24 HOURS 11/24/19 05:27 Peripheral/Venous Blood Culture - Preliminary NO GROWTH AFTER 24 HOURS 11/24/19 Unknown Tracheal Aspirate Sputum Culture - Preliminary Hoffman/IV: Voiding Method Indwelling Catheter IV Catheter Type [Left Wrist] INT / Saline Lock IV Catheter Type [Right INT / Saline Lock Antecubital] Active Medications - Current Medications Current Medications: Generic Name Dose Route Start Last Admin Trade Name Freq PRN Reason Stop Dose Admin Azithromycin 500 mg 11/25/19 22:00 Zithromax PO QDAY@2200 CAR Famotidine 20 mg 11/25/19 10:00 Pepcid PO BID CAR Fentanyl 50 mcg 11/24/19 09:55 Sublimaze IV Q10MIN PRN ANALGESIA Furosemide 20 mg 11/24/19 18:00 11/25/19 05:04 Lasix IV 20 mg 0600,1800 CAR Administration Heparin Sodium (Porcine) 5,000 unit 11/24/19 06:00 11/25/19 05:04 Heparin SUB-Q 5,000 unit Q8HR CAR Administration Hydrophilic Ointment 1 applic 11/24/19 02:23 Vaseline Lip Therapy TP Q2HR PRN Dry Lips Ceftriaxone Sodium 2 gm in 100 mls @ 200 mls/hr 11/24/19 22:00 11/24/19 21:45 Rocephin/Ns 2 Gm/100 Ml IV Infused Q24HR@2200 CAR Infusion Protocol Fentanyl Citrate 2,000 mcg in 100 mls @ 5.67 mls/hr 11/24/19 10:00 11/25/19 02:31 Fentanyl Drip Premix IV 2 mcg/kg/hr TITR CAR 11.34 mls/hr Administration Protocol 1 MCG/KG/HR Midazolam HCl 2 mg 11/24/19 02:23 11/24/19 02:25 Versed IV 2 mg Q10MIN PRN Administration Sedation Multi-Ingred Cream/Lotion/Oil/Oint 1 applic 11/24/19 02:23 Artificial Tears Ophth Oint OU Q4HR PRN Dry Eye(s) Ondansetron HCl 4 mg 11/24/19 05:31 Zofran IV Q8H PRN Nausea And Vomiting Sodium Chloride 10 ml 11/24/19 10:00 11/24/19 21:17 Sodium Chloride Flush Syringe 10 Ml IV 10 ml BID CAR Administration Sodium Chloride 10 ml 11/24/19 05:31 Sodium Chloride Flush Syringe 10 Ml IV PRN PRN LINE FLUSH Nutrition/Malnutrition Assess - Dietary Evaluation Nutrition/Malnutrition Findings: Nutrition Notes Start: 11/24/19 12:22 Freq: Status: Active Protocol: Document 11/24/19 12:22 HEATHER (Rec: 11/24/19 12:36 HEATHER [id number]) Co-Sign 11/24/19 12:22 LP Nutrition Notes Need for Assessment generated from: MD Order Initial or Follow up Assessment Current Diagnosis Coronary Artery Disease,Heart Failure,Respiratory Failure, Stroke,Hyperlipidemia Current Diet no diet order Labs/Tests Reviewed Pertinent Medications Lasix Height 6 ft 2 in Weight 113.39 kg Barry Body Weight (kg) 86.36 BMI 32.1 Weight Status Obese Subjective/Other Information Consulted for diet education and tube feed. Pt is on vent and unable to receive education. Burn Absent Trauma Absent GI Symptoms None Usual Diet at Home unknown Skin Integrity/Comment intact Current % PO Negligible Minimum of two criteria No physical signs of malnutrition #1 Nutrition Diagnosis Inadequate oral intake Etiology r/t mechanical ventilation As Evidenced by Signs and Symptoms pt is intubated and sedated Is patient on ventilator? Yes Is Patient Ambulatory and/or Out of Bed No REE-([facility]-confined to bed) 2403.072 Kcal/Kg value to use for calculation 14 Approximate Energy Requirements Using 1587 kcal/Kg Calculation Used for Recommendations Kcal/kg Additional Notes Protein needs are 162g (2g/kg IBW) Fluid needs are 1.5L Nutrition Intervention Change Diet Order: Recommend TF Nutrition Support: Vital HP at 65ml/hr Water flush 50ml q4hr Kcal 1,560 Protein (gm) 114 Fluid (mL) 1,304 % RDI: 100 Goal #1 Pt will meet 75-100% of energy and protein needs. Anticipated Discharge Needs: unable to determine at this time Follow-Up By: 11/26/19 Additional Comments Ck TF tolerance
[2019-11-25] MEDS: FAMOTIDINE 20 MG TAB PO SCH ×2 (11:33→21:17)
--- NOTE | 2019-11-25 11:55 | Progress Note ---
Assessment and Plan Acute hypoxemic respiratory failure Bilateral pneumonia, community acquired. Person under investigation for COVID-19 infection. Acute congestive heart failure exacerbation. History of cerebrovascular accident. Acute chronic obstructive pulmonary disease exacerbation. Hypertension and hypertensive urgency at presentation. History of arthritis. Leukocytosis. Lactic acidosis. Oropharyngeal dysphagia - continue COVID isolation per facility protocol - Adjunctive therap[ies per ID recommendations - Peep increased to 8 cm H2O - continue diuresis - continue to wean oxygen for O2 sat's > 92% - continue bronchodilators with pulmonary hygiene per RT - VAP bundle addressed (Aspiration precautions, HOB >40) - daily SAT's and SBT assessment as tolerated - continue to wean per pulmonary driven protocols - sedation target is RASS 0 to -1 - continue prn analgesia per CPOT score - follow clinically re: fever curves / trend WBC - Avoid delirium (no benzodiazepines if they can be avoided) - Maintain sleep-wake cycle - enteral nutrition at goal rate as tolerated - continue accucheck's with glycemic control per SSI for target blood glucose goal of 140-180 mg/dL whiole critically ill; Avoid hypoglycemia - continue VTE prophylaxis with Heparin - continue stress ulcer prophylaxis with Famotidine - continue mobility protocols for pressure ulcer prophylaxis - continue fall precautions - continue wound care management per RN / WCT - Supportive transfusions to keep HgB>7g/dL - CXR's and ABG's prn - Continue to monitor neurologic function - Continue chronic home medications - Continue all supportive care ........ re-evaluate in am & prn CONDITION: CRITICAL PROGNOSIS: GUARDED CODE STATUS: FULL CODE The high probability of a clinically significant, sudden or life threatening deterioration of the [Respiratory, cardiovascular & neurological] system(s) required my full and direct attention, intervention and personal management. The aggregate critical care time was [34] minutes without overlap. Time includes spent on [x] Data Review and interpretation [x] Patient assessment and monitoring of vital signs [x] Documentation [x] Medication orders and management Subjective Date of service: 11/25/19 Principal diagnosis: Ac hypoxemic resp failure; Pneumonia; PUI COVID-19; CHF; COPD; HTN Interval history: Patient is seen today for: Acute hypoxemic respiratory failure; Adan. Pneumonia (CAP); PUI COVID-19 infection; AE-CHF; AE-COPD; H/O CVA; HTN Seen and examined at bedside; 24 hour events reviewed; nursing and respiratory care staff consulted; no adverse overnight events reported to me; resting peacefully in bed; remains on MVS; FiO2 up-titrated overnight to 60%, peep remains at 6 cm H2O; he is responsive, follows commands and denies pain; no N/V/F/C Objective Vital Signs - 12hr 11/25/19 11/25/19 11/25/19 00:00 00:01 00:07 Temperature 98.8 F Pulse Rate 109 H 109 H 90 Pulse Rate [ 109 H From Monitor] Respiratory 19 19 Rate Blood Pressure 89/59 135/89 O2 Sat by Pulse 95 97 93 Oximetry 11/25/19 11/25/19 11/25/19 00:11 00:21 00:30 Temperature Pulse Rate 88 83 82 Pulse Rate [ From Monitor] Respiratory 20 20 20 Rate Blood Pressure 135/89 104/64 101/64 O2 Sat by Pulse 91 90 88 Oximetry 11/25/19 11/25/19 11/25/19 00:41 00:51 01:00 Temperature Pulse Rate 81 83 87 Pulse Rate [ From Monitor] Respiratory 19 20 20 Rate Blood Pressure 101/64 98/59 94/64 O2 Sat by Pulse 87 87 87 Oximetry 11/25/19 11/25/19 11/25/19 01:11 01:21 01:30 Temperature Pulse Rate 81 78 78 Pulse Rate [ From Monitor] Respiratory 9 L 19 21 Rate Blood Pressure 94/64 98/62 92/63 O2 Sat by Pulse 89 87 89 Oximetry 11/25/19 11/25/19 11/25/19 01:41 01:51 02:00 Temperature Pulse Rate 83 96 H 88 Pulse Rate [ From Monitor] Respiratory 20 16 7 L Rate Blood Pressure 92/63 95/56 95/56 O2 Sat by Pulse 93 92 95 Oximetry 11/25/19 11/25/19 11/25/19 02:11 02:21 02:30 Temperature Pulse Rate 88 87 109 H Pulse Rate [ From Monitor] Respiratory 19 19 7 L Rate Blood Pressure 95/66 97/68 113/81 O2 Sat by Pulse 97 98 98 Oximetry 11/25/19 11/25/19 11/25/19 02:41 02:51 03:00 Temperature Pulse Rate 110 H 100 H 95 H Pulse Rate [ From Monitor] Respiratory 17 21 19 Rate Blood Pressure 113/81 130/108 110/79 O2 Sat by Pulse 97 92 91 Oximetry 11/25/19 11/25/19 11/25/19 03:11 03:21 03:30 Temperature Pulse Rate 84 82 83 Pulse Rate [ From Monitor] Respiratory 20 19 20 Rate Blood Pressure 110/79 110/65 96/63 O2 Sat by Pulse 89 91 92 Oximetry 11/25/19 11/25/19 11/25/19 03:41 03:51 04:00 Temperature 99.3 F Pulse Rate 81 78 85 Pulse Rate [ 85 From Monitor] Respiratory 20 21 19 Rate Blood Pressure 96/63 97/63 100/66 O2 Sat by Pulse 92 93 93 Oximetry 11/25/19 11/25/19 11/25/19 04:09 04:11 04:21 Temperature Pulse Rate 85 87 79 Pulse Rate [ From Monitor] Respiratory 20 20 Rate Blood Pressure 100/66 100/66 94/53 O2 Sat by Pulse 93 93 94 Oximetry 11/25/19 11/25/19 11/25/19 04:30 04:41 04:51 Temperature Pulse Rate 82 75 82 Pulse Rate [ From Monitor] Respiratory 21 21 21 Rate Blood Pressure 87/59 87/59 94/61 O2 Sat by Pulse 94 95 96 Oximetry 11/25/19 11/25/19 11/25/19 05:00 05:11 05:21 Temperature Pulse Rate 81 76 82 Pulse Rate [ From Monitor] Respiratory 20 21 21 Rate Blood Pressure 84/57 84/57 90/53 O2 Sat by Pulse 97 96 99 Oximetry 11/25/19 11/25/19 11/25/19 05:31 05:41 05:51 Temperature Pulse Rate 87 81 83 Pulse Rate [ From Monitor] Respiratory 20 21 21 Rate Blood Pressure 90/60 90/60 86/60 O2 Sat by Pulse 99 98 99 Oximetry 11/25/19 11/25/19 11/25/19 06:01 06:11 06:21 Temperature Pulse Rate 84 86 88 Pulse Rate [ From Monitor] Respiratory 20 20 20 Rate Blood Pressure 90/63 90/63 91/61 O2 Sat by Pulse 98 97 99 Oximetry 11/25/19 11/25/19 11/25/19 06:31 06:41 06:51 Temperature Pulse Rate 80 85 85 Pulse Rate [ From Monitor] Respiratory 20 21 21 Rate Blood Pressure 87/45 83/57 83/58 O2 Sat by Pulse 98 99 100 Oximetry 11/25/19 11/25/19 11/25/19 07:00 07:11 07:21 Temperature Pulse Rate 86 89 83 Pulse Rate [ From Monitor] Respiratory 19 20 20 Rate Blood Pressure 94/65 94/65 87/62 O2 Sat by Pulse 99 99 99 Oximetry 11/25/19 11/25/19 11/25/19 07:30 07:41 07:51 Temperature Pulse Rate 90 83 91 H Pulse Rate [ From Monitor] Respiratory 20 20 20 Rate Blood Pressure 91/62 87/62 86/59 O2 Sat by Pulse 99 99 99 Oximetry 11/25/19 11/25/19 11/25/19 08:00 08:11 08:21 Temperature 100.9 F H Pulse Rate 88 91 H 110 H Pulse Rate [ From Monitor] Respiratory 20 20 20 Rate Blood Pressure 94/66 94/66 101/64 O2 Sat by Pulse 99 100 100 Oximetry 11/25/19 11/25/19 11/25/19 08:30 08:40 08:51 Temperature Pulse Rate 89 91 H 88 Pulse Rate [ From Monitor] Respiratory 20 20 20 Rate Blood Pressure 96/67 87/62 97/70 O2 Sat by Pulse 100 100 99 Oximetry 11/25/19 11/25/19 11/25/19 09:01 09:11 09:21 Temperature Pulse Rate 89 90 86 Pulse Rate [ From Monitor] Respiratory 19 20 20 Rate Blood Pressure 97/70 96/67 91/66 O2 Sat by Pulse 100 100 100 Oximetry 11/25/19 11/25/19 11/25/19 09:30 09:41 09:51 Temperature Pulse Rate 87 85 88 Pulse Rate [ From Monitor] Respiratory 21 20 21 Rate Blood Pressure 91/63 91/63 94/64 O2 Sat by Pulse 100 100 100 Oximetry 11/25/19 11/25/19 11/25/19 10:00 10:09 10:11 Temperature Pulse Rate 87 85 86 Pulse Rate [ From Monitor] Respiratory 20 20 Rate Blood Pressure 92/62 92/62 94/64 O2 Sat by Pulse 100 100 100 Oximetry 11/25/19 11/25/19 11/25/19 10:21 10:30 10:41 Temperature Pulse Rate 85 86 94 H Pulse Rate [ From Monitor] Respiratory 20 20 20 Rate Blood Pressure 92/66 99/66 99/66 O2 Sat by Pulse 99 100 99 Oximetry 0911/25/19 11/25/19 10:51 11:00 11:11 Temperature Pulse Rate 85 79 90 Pulse Rate [ From Monitor] Respiratory 20 20 20 Rate Blood Pressure 90/64 77/55 77/55 O2 Sat by Pulse 100 99 99 Oximetry Constitutional: no acute distress, other (elderly and obese male, normocephalic with normal respiratory effort at rest on MVS) Eyes: non-icteric ENT: oropharynx moist, other (ETT 24 cm JASON) Neck: supple, no JVD Effort: normal Ascultation: Bilateral: clear, diminished breath sounds Percussion: Bilateral: not dull Cardiovascular: regular rate and rhythm Gastrointestinal: normoactive bowel sounds, soft, non-tender, non-distended Integumentary: normal Extremities: no cyanosis, no edema, pulses normal, no ischemia or petechiae Neurologic: non-focal exam (grossly), pupils equal and round, motor strength normal and Psychiatric: mood appropriate, affect normal CBC and BMP: 11/25/19 05:11 11/25/19 05:11 ABG, PT/INR, D-dimer: ABG ABG pH 7.333 pH Units (7.350-7.450) L 11/25/19 03:18 ABG pCO2 50.1 mm Hg 11/25/19 03:18 ABG pO2 61.2 mm Hg (80.0-90.0) L 11/25/19 03:18 ABG O2 Saturation 90.2 % (95.0-99.0) L 11/25/19 03:18 PT/INR, D-dimer PT 12.7 Sec. (12.2-14.9) 11/25/19 05:11 INR 0.94 (0.87-1.13) 11/25/19 05:11 Abnormal lab findings: Abnormal Labs 11/24/19 11/24/19 11/24/19 02:53 02:53 03:45 WBC 14.3 H RDW 17.2 H Lymph % (Auto) [place] % (Auto) [place] # Seg Neutrophils % Seg Neutrophils # Seg Neutrophils # Man 8.3 H Monocytes # (Manual) 0.9 H ABG pH 7.313 L ABG pO2 102.8 H ABG O2 Saturation ABG Base Excess -2.9 L ABG Hemoglobin Oxyhemoglobin 93.9 L BUN Glucose 195 H POC Glucose Lactic Acid Lactate Dehydrogenase CK-MB (CK-2) 4.3 H NT-Pro-B Natriuret Pep 1181 H 11/24/19 11/24/19 11/24/19 04:53 04:53 10:37 WBC RDW Lymph % (Auto) [place] % (Auto) [place] # Seg Neutrophils % Seg Neutrophils # Seg Neutrophils # Man Monocytes # (Manual) ABG pH ABG pO2 ABG O2 Saturation ABG Base Excess ABG Hemoglobin Oxyhemoglobin BUN Glucose 162 H POC Glucose Lactic Acid 2.40 H* 2.50 H* Lactate Dehydrogenase 240 H CK-MB (CK-2) NT-Pro-B Natriuret Pep 11/24/19 11/24/19 11/24/19 12:21 14:50 19:54 WBC RDW Lymph % (Auto) [place] % (Auto) [place] # Seg Neutrophils % Seg Neutrophils # Seg Neutrophils # Man Monocytes # (Manual) ABG pH ABG pO2 ABG O2 Saturation ABG Base Excess ABG Hemoglobin Oxyhemoglobin BUN Glucose POC Glucose 145 H 143 H 124 H Lactic Acid Lactate Dehydrogenase CK-MB (CK-2) NT-Pro-B Natriuret Pep 11/25/19 11/25/19 11/25/19 00:18 03:18 05:11 WBC 13.7 H RDW 17.1 H Lymph % (Auto) 10.8 L [place] % (Auto) 8.7 H [place] # 1.2 H Seg Neutrophils % 80.2 H Seg Neutrophils # 11.0 H Seg Neutrophils # Man Monocytes # (Manual) ABG pH 7.333 L ABG pO2 61.2 L ABG O2 Saturation 90.2 L ABG Base Excess ABG Hemoglobin 13.7 L Oxyhemoglobin 88.2 L BUN Glucose POC Glucose 109 H Lactic Acid Lactate Dehydrogenase CK-MB (CK-2) NT-Pro-B Natriuret Pep 11/25/19 05:11 WBC RDW Lymph % (Auto) [place] % (Auto) [place] # Seg Neutrophils % Seg Neutrophils # Seg Neutrophils # Man Monocytes # (Manual) ABG pH ABG pO2 ABG O2 Saturation ABG Base Excess ABG Hemoglobin Oxyhemoglobin BUN 23 H Glucose 110 H POC Glucose Lactic Acid Lactate Dehydrogenase CK-MB (CK-2) NT-Pro-B Natriuret Pep Chest x-ray: image reviewed (improving bilateral infiltrates) Allied health notes reviewed: nursing
--- NOTE | 2019-11-25 15:00 | Progress Note ---
Assessment and Plan Cultures: Blood culture 11/24/2019 pending Urine culture 11/24/2019 pending A/P: 64-year-old male past medical history hypertension, COPD, CAD, CHF with reduced ejection fraction admitted with acute hypoxic respiratory failure likely secondary to pneumonia #Acute hypoxemic respiratory failure: Likely secondary to pneumonia, COVID-19 testing negative so far. Currently intubated. #Bilateral pneumonia: Initial COVID-19 testing negative. Recommend repeat testing continue. Antibiotics for now. Obtain procalcitonin. #CHF #COPD Recs: -Continue ceftriaxone 2 gm IV qday and azithromycin 500 mg PO qday -Steroids per ICU -Procalcitonin is pending from 2 days ago. -Repeat COVID-19 if procalcitonin is normal. Thank you for the consult, we will continue to follow. Michael Wade MD [facility] ([facility]) M: [phone] O: [phone] F: [phone] Subjective Date of service: 11/25/19 Principal diagnosis: Ac hypoxemic resp failure; Pneumonia; PUI COVID-19; CHF; COPD; HTN Interval history: Patient remains febrile to 100.9 degrees white count is stable. Remains intubated. Imaging personally reviewed: Chest x-ray: Mild improvement Objective - Exam Narrative Exam: Physical exam deferred due to PPE conservation strategy. Please refer to p maryam team's note. - Constitutional Vitals: Vital Signs Temp Pulse Resp BP Pulse Ox 100.0 F H 85 21 92/63 99 11/25/19 12:00 11/25/19 13:11 11/25/19 13:11 11/25/19 13:11 11/25/19 13:11 Temperature -Last 24 Hours Temperature 100.0 F Temperature 100.9 F Temperature 99.3 F Temperature 98.8 F Temperature 98.7 F Temperature 98.9 F - Labs CBC & Chem 7: 11/25/19 05:11 11/25/19 05:11 Labs: Abnormal lab results 11/24/19 11/25/19 11/25/19 Range/Units 19:54 00:18 03:18 WBC (4.5-11.0) K/mm3 RDW (13.2-15.2) % Lymph % (Auto) (13.4-35.0) % Ward % (Auto) (0.0-7.3) % Ward # (0.0-0.8) K/mm3 Seg Neutrophils % (40.0-70.0) % Seg Neutrophils # (1.8-7.7) K/mm3 ABG pH 7.333 L (7.350-7.450) pH Units ABG pO2 61.2 L (80.0-90.0) mm Hg ABG O2 Saturation 90.2 L (95.0-99.0) % ABG Hemoglobin 13.7 L (14.0-18.0) gm/dl Oxyhemoglobin 88.2 L (95.0-99.0) % BUN (9-20) mg/dL Glucose (75-100) mg/dL POC Glucose 124 H 109 H (70-105) 11/25/19 11/25/19 Range/Units 05:11 05:11 WBC 13.7 H (4.5-11.0) K/mm3 RDW 17.1 H (13.2-15.2) % Lymph % (Auto) 10.8 L (13.4-35.0) % Ward % (Auto) 8.7 H (0.0-7.3) % Ward # 1.2 H (0.0-0.8) K/mm3 Seg Neutrophils % 80.2 H (40.0-70.0) % Seg Neutrophils # 11.0 H (1.8-7.7) K/mm3 ABG pH (7.350-7.450) pH Units ABG pO2 (80.0-90.0) mm Hg ABG O2 Saturation (95.0-99.0) % ABG Hemoglobin (14.0-18.0) gm/dl Oxyhemoglobin (95.0-99.0) % BUN 23 H (9-20) mg/dL Glucose 110 H (75-100) mg/dL POC Glucose (70-105)
[2019-11-25] MEDS: ACETAMINOPHEN 325 MG/10.15 ML ORAL LIQD UNIT DOSE FEEDTUBE PRN (18:26)
[2019-11-25] MEDS: cefTRIAXone/NS 2 GM/100 ML 2 GM/100 ML BAG IV SCH (21:16)
[2019-11-25] MEDS: AZITHROMYCIN 250 MG TAB PO SCH (21:17)
--- NOTE | 2019-11-26 03:46 | XRay Report ---
CHEST 1 VIEW INDICATION: follow up respiratory failure. COMPARISON: Previous day. FINDINGS: Support devices: Unchanged. Heart: Stable cardiomegaly. Lungs/Pleura: Lung volumes have diminished. Mild increasing interstitial markings likely due to vascu lar congestion. Mild increasing opacity right base. Additional findings: None. IMPRESSION: 1. Increasing vascular congestion. 2. Mild increasing opacity right base. Signer Name: Heriberto Johnson MD Signed: 11/26/2019 3:42 AM Workstation Name: [id number]
[2019-11-26 04:16] LABS: ABG Base Excess 1.7 mmol/L (-2.0-3.0); ABG HCO3 27.8 mmol/L (20.0-26.0); ABG Methemoglobin 0.5 % (0.0-1.5); ABG Oxygen Saturation 98.8 % (95.0-99.0); ABG PCO2 50.1 mm Hg; ABG PH 7.363 pH Units (7.350-7.450); ABG PO2 155.1 mm Hg (80.0-90.0)
[2019-11-26] MEDS: FUROSEMIDE 20 MG/2 ML INJ IV SCH ×2 (06:28→18:10)
[2019-11-26] MEDS: HEPARIN 5,000 UNIT/1 ML VIAL SUB-Q SCH ×3 (06:28→22:34)
[2019-11-26] MEDS: FAMOTIDINE 20 MG TAB PO SCH ×2 (09:25→22:33)
[2019-11-26] MEDS: fentaNYL DRIP Premix 2,000 MCG/100 ML BAG IV SCH ×2 (09:44→18:45)
[2019-11-26 11:22] LABS: Hematocrit 41.7 % (35.5-45.6); Hemoglobin 13.4 gm/dl (11.8-15.2); Mean Corpuscular HGB Conc 32 % (32-34); Mean Corpuscular Volume 91 fl (84-94); Platelet Count 182 K/mm3 (140-440); Red Blood Count 4.59 M/mm3 (3.65-5.03); Red Cell Distribution Width 17.1 % (13.2-15.2)
[2019-11-26 11:42] LABS: BUN/Creatinine Ratio 29; Blood Urea Nitrogen 29 mg/dL (9-20); Calcium 9.3 mg/dL (8.4-10.2); Hemolysis Index 8
--- NOTE | 2019-11-26 11:53 | Progress Note ---
Assessment and Plan Assessment and plan: Patient is a 64-year-old male with known history of hypertension, COPD, history of coronary artery disease, CHF with ejection fraction of 20 to 25% in August 2018 presenting to the emergency room today via EMS complaining of shortness of breath. Patient was found to be hypoxic and in respiratory distress. Patient was placed on CPAP in route to the hospital. Oxygen saturation was said to be 88%. Started on Solu-Medrol, Lasix and magnesium in ED, patient was also found to be lethargic with an oxygen saturation of about 91% on CPAP. He was subsequently intubated. Work-up in the emergency room including chest x-ray reveals bilateral pneumonia. He had an elevated white count of 14 and also had an elevated BNP. Patient to be admitted to the ICU and placed on empiric IV antibiotics for pneumonia. He will also be tested for COVID-19 and placed on isolation precautions. Most of the history was gotten from the ER physician as patient is currently intubated. 11/25: Leukocytosis improving. Continue current management anticipate extubation possible today. Acute hypoxemic respiratory failure Bilateral pneumonia, community acquired, - COIVD 19 NEGATIVE Person under investigation for COVID-19 infection. Acute congestive heart failure exacerbation Presumed systolic History of cerebrovascular accident. Tobacco use disorder Acute chronic obstructive pulmonary disease exacerbation. Hypertension and hypertensive urgency at presentation. History of arthritis. Leukocytosis. Lactic acidosis. Oropharyngeal dysphagia S/P Knee surgery History of peptic Ulcer Surgery Plan Continue supportive care Wean from vent as tolerated Continue ceftriaxone 2 gm IV qday and azithromycin 500 mg PO qday per ID Discuss with travel assistant if to continue steroids ID Considering Repeat Covid 19 test continue diuresis Aspiration precautions DVT/GI prophy The high probability of a clinically significant, sudden or life threatening deterioration of the [Respiratory, cardiovascular & neurological] system(s) required my full and direct attention, intervention and personal management. The aggregate critical care time was [35] minutes without overlap. Time includes spent on [x] Data Review and interpretation [x] Patient assessment and monitoring of vital signs [x] Documentation [x] Medication orders and management History Interval history: Patient seen and examined, still on the ventilator. Follows commands. No adverse event reported by nursing staff Hospitalist Physical - Physical exam Narrative exam: General appearance: Present: well-nourished, other (Inntubated), opens eyes to names and follows command - EENT Eyes: Present: PERRL, EOM intact. Absent: scleral icterus ENT: clear oral mucosa, dentition normal - Neck Neck: Present: supple, normal ROM - Respiratory Respiratory effort: normal, mechanical ventilation Respiratory: bilateral: rales - Cardiovascular Rhythm: regular Heart Sounds: Present: S1 & S2. Absent: gallop, systolic murmur, diastolic murmur, rub - Extremities Extremities: no ischemia, pulses intact, pulses symmetrical, No edema, Full ROM Peripheral Pulses: within normal limits - Abdominal General gastrointestinal: Present: soft, non-tender, non-distended, normal bowel sounds. Absent: mass - Integumentary Integumentary: Present: clear, warm, dry. Absent: rash - Musculoskeletal Musculoskeletal: strength equal bilaterally - Psychiatric Psychiatric: cooperative - Constitutional Vitals: Temp Pulse Resp BP Pulse Ox 98.1 F 101 H 20 115/83 99 11/26/19 08:00 11/26/19 11:31 11/26/19 11:20 11/26/19 11:31 11/26/19 11:31 General appearance: Present: well-nourished, other (Inntubated) HEART Score - HEART Score Troponin: Troponin T < 0.010 ng/mL (0.00-0.029) 11/24/19 02:53 Results - Labs CBC & Chem 7: 11/26/19 10:43 11/26/19 10:43 Labs: Laboratory Last Values WBC 11.4 K/mm3 (4.5-11.0) H 11/26/19 10:43 RBC 4.59 M/mm3 (3.65-5.03) 11/26/19 10:43 Hgb 13.4 gm/dl (11.8-15.2) 11/26/19 10:43 Hct 41.7 % (35.5-45.6) 11/26/19 10:43 MCV 91 fl (84-94) 11/26/19 10:43 MCH 29 pg (28-32) 11/26/19 10:43 MCHC 32 % (32-34) 11/26/19 10:43 RDW 17.1 % (13.2-15.2) H 11/26/19 10:43 Plt Count 182 K/mm3 (140-440) 11/26/19 10:43 Lymph % (Auto) 10.8 % (13.4-35.0) L 11/25/19 05:11 [place] % (Auto) 8.7 % (0.0-7.3) H 11/25/19 05:11 Eos % (Auto) 0.0 % (0.0-4.3) 11/25/19 05:11 Baso % (Auto) 0.3 % (0.0-1.8) 11/25/19 05:11 Lymph # 1.5 K/mm3 (1.2-5.4) 11/25/19 05:11 [place] # 1.2 K/mm3 (0.0-0.8) H 11/25/19 05:11 Eos # 0.0 K/mm3 (0.0-0.4) 11/25/19 05:11 Baso # 0.0 K/mm3 (0.0-0.1) 11/25/19 05:11 Add Manual Diff Complete 11/24/19 02:53 Total Counted 100 11/24/19 02:53 Seg Neutrophils % 80.2 % (40.0-70.0) H 11/25/19 05:11 Seg Neuts % (Manual) 58.0 % (40.0-70.0) 11/24/19 02:53 Band Neutrophils % 0 % 11/24/19 02:53 Lymphocytes % (Manual) 33.0 % (13.4-35.0) 11/24/19 02:53 Reactive Lymphs % (Man) 0 % 11/24/19 02:53 Monocytes % (Manual) 6.0 % (0.0-7.3) 11/24/19 02:53 Eosinophils % (Manual) 3.0 % (0.0-4.3) 11/24/19 02:53 Basophils % (Manual) 0 % (0.0-1.8) 11/24/19 02:53 Metamyelocytes % 0 % 11/24/19 02:53 Myelocytes % 0 % 11/24/19 02:53 Promyelocytes % 0 % 11/24/19 02:53 Blast Cells % 0 % 11/24/19 02:53 Nucleated RBC % Not Reportable 11/24/19 02:53 Seg Neutrophils # 11.0 K/mm3 (1.8-7.7) H 11/25/19 05:11 Seg Neutrophils # Man 8.3 K/mm3 (1.8-7.7) H 11/24/19 02:53 Band Neutrophils # 0.0 K/mm3 11/24/19 02:53 Lymphocytes # (Manual) 4.7 K/mm3 (1.2-5.4) 11/24/19 02:53 Abs React Lymphs (Man) 0.0 K/mm3 11/24/19 02:53 Monocytes # (Manual) 0.9 K/mm3 (0.0-0.8) H 11/24/19 02:53 Eosinophils # (Manual) 0.4 K/mm3 (0.0-0.4) 11/24/19 02:53 Basophils # (Manual) 0.0 K/mm3 (0.0-0.1) 11/24/19 02:53 Metamyelocytes # 0.0 K/mm3 11/24/19 02:53 Myelocytes # 0.0 K/mm3 11/24/19 02:53 Promyelocytes # 0.0 K/mm3 11/24/19 02:53 Blast Cells # 0.0 K/mm3 11/24/19 02:53 WBC Morphology Not Reportable 11/24/19 02:53 Hypersegmented Neuts Not Reportable 11/24/19 02:53 Hyposegmented Neuts Not Reportable 11/24/19 02:53 Hypogranular Neuts Not Reportable 11/24/19 02:53 Smudge Cells Not Reportable 11/24/19 02:53 Toxic Granulation Not Reportable 11/24/19 02:53 Toxic Vacuolation Not Reportable 11/24/19 02:53 Dohle Bodies Not Reportable 11/24/19 02:53 Pelger-Huet Anomaly Not Reportable 11/24/19 02:53 Hector Rods Not Reportable 11/24/19 02:53 Platelet Estimate Consistent w auto 11/24/19 02:53 Clumped Platelets Not Reportable 11/24/19 02:53 Plt Clumps, EDTA Not Reportable 11/24/19 02:53 Large Platelets Not Reportable 11/24/19 02:53 Giant Platelets Not Reportable 11/24/19 02:53 Platelet Satelliting Not Reportable 11/24/19 02:53 Plt Morphology Comment Not Reportable 11/24/19 02:53 RBC Morphology Not Reportable 11/24/19 02:53 Dimorphic RBCs Not Reportable 11/24/19 02:53 Polychromasia Not Reportable 11/24/19 02:53 Hypochromasia Not Reportable 11/24/19 02:53 Poikilocytosis Not Reportable 11/24/19 02:53 Anisocytosis Few 11/24/19 02:53 Microcytosis Not Reportable 11/24/19 02:53 Macrocytosis Not Reportable 11/24/19 02:53 Spherocytes Not Reportable 11/24/19 02:53 Pappenheimer Bodies Not Reportable 11/24/19 02:53 Sickle Cells Not Reportable 11/24/19 02:53 Target Cells Not Reportable 11/24/19 02:53 Tear Drop Cells Not Reportable 11/24/19 02:53 Ovalocytes Not Reportable 11/24/19 02:53 Helmet Cells Not Reportable 11/24/19 02:53 [place] Bodies Not Reportable 11/24/19 02:53 [place] Rings Not Reportable 11/24/19 02:53 [place] Cells Not Reportable 11/24/19 02:53 Bite Cells Not Reportable 11/24/19 02:53 Crenated Cell Not Reportable 11/24/19 02:53 Elliptocytes Not Reportable 11/24/19 02:53 Acanthocytes (Spur) Not Reportable 11/24/19 02:53 Rouleaux Not Reportable 11/24/19 02:53 Hemoglobin C Crystals Not Reportable 11/24/19 02:53 Schistocytes Not Reportable 11/24/19 02:53 Malaria parasites Not Reportable 11/24/19 02:53 Clifford Bodies Not Reportable 11/24/19 02:53 Hem Pathologist Commnt No 11/24/19 02:53 PT 12.7 Sec. (12.2-14.9) 11/25/19 05:11 INR 0.94 (0.87-1.13) 11/25/19 05:11 ABG pH 7.363 pH Units (7.350-7.450) 11/26/19 03:12 ABG pCO2 50.1 mm Hg 11/26/19 03:12 ABG pO2 155.1 mm Hg (80.0-90.0) H 11/26/19 03:12 ABG HCO3 27.8 mmol/L (20.0-26.0) H 11/26/19 03:12 ABG O2 Saturation 98.8 % (95.0-99.0) 11/26/19 03:12 ABG O2 Content 16.9 (0.0-44) 11/26/19 03:12 ABG Base Excess 1.7 mmol/L (-2.0-3.0) 11/26/19 03:12 ABG Hemoglobin 12.2 gm/dl (14.0-18.0) L 11/26/19 03:12 ABG Carboxyhemoglobin 1.4 % (0.0-5.0) 11/26/19 03:12 ABG Methemoglobin 0.5 % (0.0-1.5) 11/26/19 03:12 Oxyhemoglobin 96.9 % (95.0-99.0) 11/26/19 03:12 FiO2 50 % 11/26/19 03:12 Sodium 144 mmol/L (137-145) 11/26/19 10:43 Potassium 4.1 mmol/L (3.6-5.0) 11/26/19 10:43 Chloride 103.8 mmol/L (98-107) 11/26/19 10:43 Carbon Dioxide 27 mmol/L (22-30) 11/26/19 10:43 Anion Gap 17 mmol/L 11/26/19 10:43 BUN 29 mg/dL (9-20) H 11/26/19 10:43 Creatinine 1.0 mg/dL (0.8-1.3) 11/26/19 10:43 Estimated GFR > 60 ml/min 11/26/19 10:43 BUN/Creatinine Ratio 29 % 11/26/19 10:43 Glucose 100 mg/dL (75-100) 11/26/19 10:43 POC Glucose 107 (70-105) H 11/26/19 06:17 Lactic Acid 2.50 mmol/L (0.7-2.0) H* 11/24/19 10:37 Calcium 9.3 mg/dL (8.4-10.2) 11/26/19 10:43 Ferritin 84.4 ng/mL (30.0-300.0) 11/24/19 04:53 Total Bilirubin 0.40 mg/dL (0.1-1.2) 11/24/19 02:53 AST 22 units/L (5-40) 11/24/19 02:53 ALT 17 units/L (7-56) 11/24/19 02:53 Alkaline Phosphatase 89 units/L (35-129) 11/24/19 02:53 Lactate Dehydrogenase 240 units/L (91-180) H 11/24/19 04:53 Total Creatine Kinase 141 units/L (55-170) 11/24/19 02:53 CK-MB (CK-2) 4.3 ng/mL (0.0-4.0) H 11/24/19 02:53 CK-MB (CK-2) Rel Index 3.0 (0-4) 11/24/19 02:53 Troponin T < 0.010 ng/mL (0.00-0.029) 11/24/19 02:53 C-Reactive Protein 0.10 mg/dL (0.00-1.30) 11/24/19 04:53 NT-Pro-B Natriuret Pep 1181 pg/mL (0-900) H 11/24/19 02:53 Total Protein 7.4 g/dL (6.3-8.2) 11/24/19 02:53 Albumin 4.5 g/dL (3.9-5) 11/24/19 02:53 Albumin/Globulin Ratio 1.6 % 11/24/19 02:53 Procalcitonin 0.12 ng/mL (<0.15) 11/25/19 05:11 Coronavirus (PCR) Negative (Negative) 11/24/19 Unknown Microbiology: Microbiology 11/24/19 Unknown Tracheal Aspirate Sputum Culture - Final 11/24/19 04:53 Peripheral/Venous Blood Culture - Preliminary NO GROWTH AFTER 48 HOURS 11/24/19 05:27 Peripheral/Venous Blood Culture - Preliminary NO GROWTH AFTER 48 HOURS Hoffman/IV: Voiding Method Indwelling Catheter IV Catheter Type [Left Wrist] INT / Saline Lock IV Catheter Type [Right INT / Saline Lock Antecubital] Active Medications - Current Medications Current Medications: Generic Name Dose Route Start Last Admin Trade Name Freq PRN Reason Stop Dose Admin Acetaminophen 650 mg 11/25/19 17:27 11/25/19 18:26 Tylenol FEEDTUBE 650 mg Q6H PRN Administration Pain, Mild (1-3) Azithromycin 500 mg 11/25/19 22:00 11/25/19 21:17 Zithromax PO 11/28/19 23:59 500 mg QDAY@2200 CAR Administration Famotidine 20 mg 11/25/19 10:00 11/26/19 09:25 Pepcid PO 20 mg BID CAR Administration Fentanyl 50 mcg 11/24/19 09:55 Sublimaze IV Q10MIN PRN ANALGESIA Furosemide 20 mg 11/24/19 18:00 11/26/19 06:28 Lasix IV 20 mg 0600,1800 [facility] Administration Heparin Sodium (Porcine) 5,000 unit 11/24/19 06:00 11/26/19 06:28 Heparin SUB-Q 5,000 unit Q8HR CAR Administration Hydrophilic Ointment 1 applic 11/24/19 02:23 Vaseline Lip Therapy TP Q2HR PRN Dry Lips Ceftriaxone Sodium 2 gm in 100 mls @ 200 mls/hr 11/24/19 22:00 11/25/19 21:16 Rocephin/Ns 2 Gm/100 Ml IV 11/28/19 22:29 200 mls/hr Q24HR@2200 [facility] Administration Protocol Fentanyl Citrate 2,000 mcg in 100 mls @ 5.67 mls/hr 11/24/19 10:00 11/26/19 09:44 Fentanyl Drip Premix IV 2 mcg/kg/hr TITR CAR 11.34 mls/hr Administration Protocol 1 MCG/KG/HR Midazolam HCl 2 mg 11/24/19 02:23 11/24/19 02:25 Versed IV 2 mg Q10MIN PRN Administration Sedation Multi-Ingred Cream/Lotion/Oil/Oint 1 applic 11/24/19 02:23 Artificial Tears Ophth Oint OU Q4HR PRN Dry Eye(s) Ondansetron HCl 4 mg 11/24/19 05:31 Zofran IV Q8H PRN Nausea And Vomiting Sodium Chloride 10 ml 11/24/19 10:00 11/26/19 11:26 Sodium Chloride Flush Syringe 10 Ml IV Not Given BID CAR Sodium Chloride 10 ml 11/24/19 05:31 Sodium Chloride Flush Syringe 10 Ml IV PRN PRN LINE FLUSH Nutrition/Malnutrition Assess - Dietary Evaluation Nutrition/Malnutrition Findings: Nutrition Notes Start: 11/24/19 12:22 Freq: Status: Active Protocol: Document 11/26/19 11:18 HEATHER (Rec: 11/26/19 11:28 HEATHER [id number]) Co-Sign 11/26/19 11:18 LP Nutrition Notes Initial or Follow up Reassessment Current Diagnosis Coronary Artery Disease,Heart Failure,Respiratory Failure, Stroke,Hyperlipidemia Current Diet TF Vital HP 65ml/hr Labs/Tests Reviewed Pertinent Medications Lasix Height 6 ft 2 in Weight 113.39 kg [place] Body Weight (kg) 86.36 BMI 32.1 Weight Status Obese Subjective/Other Information Pt is running at TF goal Vital HP 65ml/hr and tolerating TF Percent of energy/protein needs met: 98%/70% Burn Absent Trauma Absent GI Symptoms None Usual Diet at Home unknown Skin Integrity/Comment intact Current % PO Negligible Minimum of two criteria No physical signs of malnutrition #1 Nutrition Diagnosis Inadequate oral intake Diagnosis Progress(for reassessment Continues documentation) Is patient on ventilator? Yes Is Patient Ambulatory and/or Out of Bed No REE-([place]-confined to bed) 2403.072 Kcal/Kg value to use for calculation 14 Approximate Energy Requirements Using 1587 kcal/Kg Calculation Used for Recommendations Kcal/kg Additional Notes Protein needs 162g (up to 2g/ kg IBW) Fluid needs are 1.5L Nutrition Intervention Change Diet Order: Continue TF Nutrition Support: Vital HP at 65ml/hr Flush 50ml q4hr Kcal 1,560 Protein (gm) 114 Fluid (mL) 1,304 % RDI: 100 Goal #1 Pt will meet 75-100% of energy and protein needs Anticipated Discharge Needs: unable to determine at this time Follow-Up By: 11/27/19 Additional Comments Ck TF tolerance
--- NOTE | 2019-11-26 13:52 | Progress Note ---
Assessment and Plan Acute hypoxemic respiratory failure Bilateral pneumonia, community acquired. Acute congestive heart failure exacerbation. History of cerebrovascular accident. Acute chronic obstructive pulmonary disease exacerbation. Hypertension and hypertensive urgency at presentation. History of arthritis. Leukocytosis. Lactic acidosis. Oropharyngeal dysphagia - discontinue COVID isolation per facility protocol - continue diuresis, while monitoring renal function, hemodynamics and electrolyte profile - continue to wean oxygen for O2 sats > 90% - continue bronchodilators with pulmonary hygiene per RT - VAP bundle addressed (Aspiration precautions, HOB >40) - daily SAT's and SBT assessment as tolerated- trial today - continue to wean per pulmonary driven protocols - sedation target is RASS 0 to -1 - continue prn analgesia per CPOT score - follow clinically re: fever curves / trend WBC - Avoid delirium (no benzodiazepines if they can be avoided) - Maintain sleep-wake cycle - Enteral nutrition at goal rate as tolerated - continue accuchecks with glycemic control per SSI for target blood glucose goal of 140-180 mg/dL while critically ill; Avoid hypoglycemia - continue VTE prophylaxis with Heparin - continue stress ulcer prophylaxis with Famotidine - continue mobility protocols for pressure ulcer prophylaxis - continue fall precautions - continue wound care management per RN / WCT - Supportive transfusions as indicated to keep HgB>7g/dL - CXRs and ABGs in am - Continue to monitor neurologic function - Continue chronic home medications as clinically indicated - Continue all supportive care CONDITION: CRITICAL PROGNOSIS: GUARDED CODE STATUS: FULL CODE The high probability of a clinically significant, sudden or life threatening deterioration of the [Respiratory, cardiovascular & neurological] system(s) required my full and direct attention, intervention and personal management. The aggregate critical care time was [33] minutes without overlap. Time includes spent on [x] Data Review and interpretation [x] Patient assessment and monitoring of vital signs [x] Documentation [x] Medication orders and management Subjective Date of service: 11/26/19 Principal diagnosis: Ac hypoxemic resp failure; Pneumonia; PUI COVID-19; CHF; COPD; HTN Interval history: Patient is seen today for: Acute hypoxemic respiratory failure; [place]. Pneumonia (CAP); PUI COVID-19 infection; AE-CHF; AE-COPD; H/O CVA; HTN Seen and examined at bedside; 24 hour events reviewed; nursing and respiratory care staff consulted; no adverse overnight events reported to me; resting peacefully in bed; awake and alert, ETT in place. NO asynchrony, On Fentanyl, OGT in place ; no emesis or overt aspiration; Objective Vital Signs - 12hr 11/26/19 11/26/19 11/26/19 02:00 02:11 02:21 Temperature Pulse Rate 91 H 92 H 93 H Pulse Rate [ From Monitor] Respiratory 20 20 19 Rate Blood Pressure 100/74 100/74 105/73 O2 Sat by Pulse 99 98 99 Oximetry 11/26/19 11/26/19 11/26/19 02:31 02:41 02:51 Temperature Pulse Rate 121 H 83 89 Pulse Rate [ From Monitor] Respiratory 19 20 20 Rate Blood Pressure 105/73 105/73 105/73 O2 Sat by Pulse 100 97 98 Oximetry 11/26/19 11/26/19 11/26/19 03:01 03:11 03:21 Temperature Pulse Rate 90 96 H 94 H Pulse Rate [ From Monitor] Respiratory 20 8 L 20 Rate Blood Pressure 105/73 105/73 105/73 O2 Sat by Pulse 98 98 99 Oximetry 11/26/19 11/26/19 11/26/19 03:31 03:41 03:51 Temperature Pulse Rate 89 92 H 94 H Pulse Rate [ From Monitor] Respiratory 20 20 21 Rate Blood Pressure 105/73 105/73 105/73 O2 Sat by Pulse 98 99 100 Oximetry 11/26/19 11/26/19 11/26/19 04:00 04:01 04:06 Temperature 99.7 F H Pulse Rate 89 105 H 95 H Pulse Rate [ 89 From Monitor] Respiratory 21 Rate Blood Pressure 105/73 O2 Sat by Pulse 99 98 Oximetry 11/26/19 11/26/19 11/26/19 04:11 04:21 04:24 Temperature Pulse Rate 91 H 107 H Pulse Rate [ From Monitor] Respiratory 20 20 Rate Blood Pressure 105/73 105/73 O2 Sat by Pulse 98 99 99 Oximetry 11/26/19 11/26/19 11/26/19 04:31 04:41 04:51 Temperature Pulse Rate 95 H 96 H 98 H Pulse Rate [ From Monitor] Respiratory 20 17 20 Rate Blood Pressure 105/73 105/73 105/73 O2 Sat by Pulse 97 98 98 Oximetry 11/26/19 11/26/19 11/26/19 05:01 05:11 05:21 Temperature Pulse Rate 99 H 92 H 102 H Pulse Rate [ From Monitor] Respiratory 20 20 16 Rate Blood Pressure 105/73 105/73 105/73 O2 Sat by Pulse 99 98 98 Oximetry 11/26/19 11/26/19 11/26/19 05:31 05:41 05:51 Temperature Pulse Rate 81 77 71 Pulse Rate [ From Monitor] Respiratory 20 20 20 Rate Blood Pressure 105/73 105/73 105/73 O2 Sat by Pulse 98 98 98 Oximetry 11/26/19 11/26/19 11/26/19 06:01 06:11 06:21 Temperature Pulse Rate 104 H 77 75 Pulse Rate [ From Monitor] Respiratory 21 20 21 Rate Blood Pressure 105/73 105/73 105/73 O2 Sat by Pulse 99 97 98 Oximetry 11/26/19 11/26/19 11/26/19 06:31 06:41 06:51 Temperature Pulse Rate 78 91 H 86 Pulse Rate [ From Monitor] Respiratory 19 20 20 Rate Blood Pressure 105/73 101/67 112/82 O2 Sat by Pulse 100 98 98 Oximetry 11/26/19 11/26/19 11/26/19 07:00 07:11 07:21 Temperature Pulse Rate 75 83 88 Pulse Rate [ From Monitor] Respiratory 20 19 20 Rate Blood Pressure 120/70 112/82 121/82 O2 Sat by Pulse 98 98 98 Oximetry 11/26/19 11/26/19 11/26/19 07:23 07:30 07:41 Temperature Pulse Rate 90 100 H 87 Pulse Rate [ From Monitor] Respiratory 20 20 Rate Blood Pressure 121/82 129/90 129/90 O2 Sat by Pulse 99 99 98 Oximetry 11/26/19 11/26/19 11/26/19 07:51 08:00 08:11 Temperature 98.1 F Pulse Rate 105 H 88 76 Pulse Rate [ 88 From Monitor] Respiratory 21 18 19 Rate Blood Pressure 146/101 122/98 146/101 O2 Sat by Pulse 98 98 97 Oximetry 11/26/19 11/26/19 11/26/19 08:21 08:30 08:41 Temperature Pulse Rate 76 75 79 Pulse Rate [ From Monitor] Respiratory 21 19 21 Rate Blood Pressure 119/59 109/64 119/59 O2 Sat by Pulse 96 96 97 Oximetry 11/26/19 11/26/19 11/26/19 08:51 09:00 09:11 Temperature Pulse Rate 79 76 74 Pulse Rate [ From Monitor] Respiratory 19 20 20 Rate Blood Pressure 102/61 107/71 102/61 O2 Sat by Pulse 96 100 98 Oximetry 11/26/19 11/26/19 11/26/19 09:20 09:31 09:41 Temperature Pulse Rate 79 74 96 H Pulse Rate [ From Monitor] Respiratory 20 20 15 Rate Blood Pressure 114/65 108/64 108/64 O2 Sat by Pulse 97 96 96 Oximetry 11/26/19 11/26/19 11/26/19 09:51 10:00 10:11 Temperature Pulse Rate 73 75 72 Pulse Rate [ From Monitor] Respiratory 21 20 20 Rate Blood Pressure 110/66 111/60 111/60 O2 Sat by Pulse 98 98 99 Oximetry 11/26/19 11/26/19 11/26/19 10:21 10:23 10:30 Temperature Pulse Rate 88 98 H 94 H Pulse Rate [ From Monitor] Respiratory 20 18 22 Rate Blood Pressure 101/69 101/69 121/89 O2 Sat by Pulse 100 100 98 Oximetry 11/26/19 11/26/19 11/26/19 10:41 10:51 11:00 Temperature Pulse Rate 91 H 95 H 105 H Pulse Rate [ From Monitor] Respiratory 22 21 16 Rate Blood Pressure 121/89 101/69 O2 Sat by Pulse 98 98 100 Oximetry 11/26/19 11/26/19 11/26/19 11:10 11:20 11:30 Temperature Pulse Rate 90 71 95 H Pulse Rate [ From Monitor] Respiratory 20 20 20 Rate Blood Pressure 112/91 115/83 O2 Sat by Pulse 98 97 99 Oximetry 11/26/19 11/26/19 11/26/19 11:31 11:40 11:50 Temperature Pulse Rate 101 H 69 71 Pulse Rate [ From Monitor] Respiratory 20 20 Rate Blood Pressure 115/83 115/83 114/81 O2 Sat by Pulse 99 96 98 Oximetry 11/26/19 11/26/19 11/26/19 12:00 12:10 12:20 Temperature 97.9 F Pulse Rate 75 89 83 Pulse Rate [ 87 From Monitor] Respiratory 20 19 20 Rate Blood Pressure 119/78 119/78 113/69 O2 Sat by Pulse 95 98 97 Oximetry 11/26/19 11/26/19 11/26/19 12:30 12:40 12:50 Temperature Pulse Rate 76 82 70 Pulse Rate [ From Monitor] Respiratory 20 20 19 Rate Blood Pressure 109/73 109/73 108/69 O2 Sat by Pulse 98 99 95 Oximetry 11/26/19 13:00 Temperature Pulse Rate 66 Pulse Rate [ From Monitor] Respiratory 20 Rate Blood Pressure 116/73 O2 Sat by Pulse 96 Oximetry Constitutional: no acute distress, other (elderly and obese male, normocephalic with normal respiratory effort at rest on MVS) Eyes: non-icteric ENT: oropharynx moist, other (ETT 24 cm JASON, OGT in place) Neck: supple, no JVD Effort: normal Ascultation: Bilateral: clear, diminished breath sounds Percussion: Bilateral: not dull Cardiovascular: regular rate and rhythm, other (S1,S2, no murmurs) Gastrointestinal: normoactive bowel sounds, soft, non-tender, non-distended Integumentary: normal Extremities: no cyanosis, no edema, pulses normal, no ischemia or petechiae Neurologic: non-focal exam (grossly, moves all extremities), pupils equal and ro und CBC and BMP: 11/28/19 13:47 11/28/19 13:47 ABG, PT/INR, D-dimer: ABG ABG pH 7.363 pH Units (7.350-7.450) 11/26/19 03:12 ABG pCO2 50.1 mm Hg 11/26/19 03:12 ABG pO2 155.1 mm Hg (80.0-90.0) H 11/26/19 03:12 ABG O2 Saturation 98.8 % (95.0-99.0) 11/26/19 03:12 PT/INR, D-dimer PT 12.7 Sec. (12.2-14.9) 11/25/19 05:11 INR 0.94 (0.87-1.13) 11/25/19 05:11 Abnormal lab findings: Abnormal Labs 11/24/19 11/24/19 11/24/19 02:53 02:53 03:45 WBC 14.3 H RDW 17.2 H Lymph % (Auto) [place] % (Auto) [place] # Seg Neutrophils % Seg Neutrophils # Seg Neutrophils # Man 8.3 H Monocytes # (Manual) 0.9 H ABG pH 7.313 L ABG pO2 102.8 H ABG HCO3 ABG O2 Saturation ABG Base Excess -2.9 L ABG Hemoglobin Oxyhemoglobin 93.9 L BUN Glucose 195 H POC Glucose Lactic Acid Lactate Dehydrogenase CK-MB (CK-2) 4.3 H NT-Pro-B Natriuret Pep 1181 H 11/24/19 11/24/19 11/24/19 04:53 04:53 10:37 WBC RDW Lymph % (Auto) [place] % (Auto) [place] # Seg Neutrophils % Seg Neutrophils # Seg Neutrophils # Man Monocytes # (Manual) ABG pH ABG pO2 ABG HCO3 ABG O2 Saturation ABG Base Excess ABG Hemoglobin Oxyhemoglobin BUN Glucose 162 H POC Glucose Lactic Acid 2.40 H* 2.50 H* Lactate Dehydrogenase 240 H CK-MB (CK-2) NT-Pro-B Natriuret Pep 11/24/19 11/24/19 11/24/19 12:21 14:50 19:54 WBC RDW Lymph % (Auto) [place] % (Auto) [place] # Seg Neutrophils % Seg Neutrophils # Seg Neutrophils # Man Monocytes # (Manual) ABG pH ABG pO2 ABG HCO3 ABG O2 Saturation ABG Base Excess ABG Hemoglobin Oxyhemoglobin BUN Glucose POC Glucose 145 H 143 H 124 H Lactic Acid Lactate Dehydrogenase CK-MB (CK-2) NT-Pro-B Natriuret Pep 11/25/19 11/25/19 11/25/19 00:18 03:18 05:11 WBC 13.7 H RDW 17.1 H Lymph % (Auto) 10.8 L [place] % (Auto) 8.7 H [place] # 1.2 H Seg Neutrophils % 80.2 H Seg Neutrophils # 11.0 H Seg Neutrophils # Man Monocytes # (Manual) ABG pH 7.333 L ABG pO2 61.2 L ABG HCO3 ABG O2 Saturation 90.2 L ABG Base Excess ABG Hemoglobin 13.7 L Oxyhemoglobin 88.2 L BUN Glucose POC Glucose 109 H Lactic Acid Lactate Dehydrogenase CK-MB (CK-2) NT-Pro-B Natriuret Pep 11/25/19 11/25/19 11/26/19 05:11 11:40 03:12 WBC RDW Lymph % (Auto) [place] % (Auto) [place] # Seg Neutrophils % Seg Neutrophils # Seg Neutrophils # Man Monocytes # (Manual) ABG pH ABG pO2 155.1 H ABG HCO3 27.8 H ABG O2 Saturation ABG Base Excess ABG Hemoglobin 12.2 L Oxyhemoglobin BUN 23 H Glucose 110 H POC Glucose 108 H Lactic Acid Lactate Dehydrogenase CK-MB (CK-2) NT-Pro-B Natriuret Pep 11/26/19 11/26/19 11/26/19 06:17 10:43 10:43 WBC 11.4 H RDW 17.1 H Lymph % (Auto) [place] % (Auto) [place] # Seg Neutrophils % Seg Neutrophils # Seg Neutrophils # Man Monocytes # (Manual) ABG pH ABG pO2 ABG HCO3 ABG O2 Saturation ABG Base Excess ABG Hemoglobin Oxyhemoglobin BUN 29 H Glucose POC Glucose 107 H Lactic Acid Lactate Dehydrogenase CK-MB (CK-2) NT-Pro-B Natriuret Pep Chest x-ray: image reviewed Allied health notes reviewed: RT
--- NOTE | 2019-11-26 15:24 | Progress Note ---
Assessment and Plan Cultures: Blood culture 11/24/2019 pending Urine culture 11/24/2019 pending A/P: 64-year-old male past medical history hypertension, COPD, CAD, CHF with reduced ejection fraction admitted with acute hypoxic respiratory failure likely secondary to pneumonia #Acute hypoxemic respiratory failure: Likely secondary to pneumonia, COVID-19 testing negative so far. Currently intubated. #Bilateral pneumonia: Initial COVID-19 testing negative. Recommend repeat testing continue. Antibiotics for now. Procalcitonin negative, as such most likely a viral pneumonia. Ordered repeat COVID test, however I have not been gettng many bcak recently. Would continue as if COVID for now. #CHF #COPD Recs: -Continue ceftriaxone 2 gm IV qday and azithromycin 500 mg PO qday. Complete 5 days. -Steroids per ICU - Ordered repeat COVID test Thank you for the consult, we will continue to follow. Michael Wade MD [facility] ([facility]) M: [phone] O: [phone] F: [phone] Subjective Date of service: 11/26/19 Principal diagnosis: Ac hypoxemic resp failure; Pneumonia; PUI COVID-19; CHF; COPD; HTN Interval history: Afebrile overnight. Normal white count. Objective - Exam Narrative Exam: Physical exam deferred due to PPE conservation strategy. Please refer to primary team's note. - Constitutional Vitals: Vital Signs Temp Pulse Resp BP Pulse Ox 97.9 F 74 20 112/76 95 11/26/19 12:00 11/26/19 14:12 11/26/19 13:00 11/26/19 14:12 11/26/19 14:12 Temperature -Last 24 Hours Temperature 97.9 F Temperature 98.1 F Temperature 99.7 F Temperature 100.0 F Temperature 99.8 F Temperature 99.8 F Temperature 100.2 F - Labs CBC & Chem 7: 11/26/19 10:43 11/26/19 10:43 Labs: Abnormal lab results 11/25/19 11/26/19 11/26/19 Range/Units 11:40 03:12 06:17 WBC (4.5-11.0) K/mm3 RDW (13.2-15.2) % ABG pO2 155.1 H (80.0-90.0) mm Hg ABG HCO3 27.8 H (20.0-26.0) mmol/L ABG Hemoglobin 12.2 L (14.0-18.0) gm/dl BUN (9-20) mg/dL POC Glucose 108 H 107 H (70-105) 11/26/19 11/26/19 Range/Units 10:43 10:43 WBC 11.4 H (4.5-11.0) K/mm3 RDW 17.1 H (13.2-15.2) % ABG pO2 (80.0-90.0) mm Hg ABG HCO3 (20.0-26.0) mmol/L ABG Hemoglobin (14.0-18.0) gm/dl BUN 29 H (9-20) mg/dL POC Glucose (70-105)
[2019-11-26] MEDS: AZITHROMYCIN 250 MG TAB PO SCH (22:33)
[2019-11-26] MEDS: cefTRIAXone/NS 2 GM/100 ML 2 GM/100 ML BAG IV SCH (22:34)
[2019-11-27] MEDS: fentaNYL DRIP Premix 2,000 MCG/100 ML BAG IV SCH ×3 (00:32→22:54)
[2019-11-27 04:49] LABS: ABG Base Excess 3.4 mmol/L (-2.0-3.0); ABG HCO3 29.2 mmol/L (20.0-26.0); ABG Methemoglobin 0.5 % (0.0-1.5); ABG Oxygen Saturation 96.6 % (95.0-99.0); ABG PH 7.393 pH Units (7.350-7.450); ABG PO2 82.6 mm Hg (80.0-90.0)
--- NOTE | 2019-11-27 05:06 | XRay Report ---
CHEST 1 VIEW INDICATION: follow up respiratory failure. COMPARISON: Previous day. FINDINGS: Support devices: Unchanged. Heart: Stable cardiomegaly. Lungs/Pleura: Improving aeration right base. Decreasing aeration left base. Additional findings: None. IMPRESSION: 1. Improving aeration right base. 2. Decreasing aeration left base. Signer Name: Heriberto Johnson MD Signed: 11/27/2019 5:01 AM Workstation Name: [id number]
[2019-11-27] MEDS: FUROSEMIDE 20 MG/2 ML INJ IV SCH ×2 (06:00→18:24)
[2019-11-27] MEDS: HEPARIN 5,000 UNIT/1 ML VIAL SUB-Q SCH ×3 (06:00→22:49)
[2019-11-27] MEDS: FAMOTIDINE 20 MG TAB PO SCH ×2 (10:23→22:53)
--- NOTE | 2019-11-27 14:21 | Progress Note ---
Assessment and Plan Acute hypoxemic respiratory failure Bilateral pneumonia, community acquired. Acute congestive heart failure exacerbation. History of cerebrovascular accident. Acute chronic obstructive pulmonary disease exacerbation. Hypertension and hypertensive urgency at presentation. History of arthritis. Leukocytosis. Lactic acidosis. Oropharyngeal dysphagia SAT and SBT this morning, he failed yesterday- episodes of apnea Monitor closely, if he tolerates the SBT and weaning parameters are acceptable then plan on liberating today. If SBT is not tolerated, will resume full MVS with sedation at half the previous dose. - continue diuresis, while monitoring renal function, hemodynamics and electrolyte profile - continue to wean oxygen for O2 sats > 90% - continue bronchodilators with pulmonary hygiene per RT - VAP bundle addressed (Aspiration precautions, HOB >40) - continue to wean per pulmonary driven protocols - continue prn analgesia per CPOT score - follow clinically re: fever curves / trend WBC - Avoid delirium (no benzodiazepines if they can be avoided) - Maintain sleep-wake cycle - Enteral nutrition at goal rate as tolerated - continue accuchecks with glycemic control per SSI for target blood glucose goal of 140-180 mg/dL while critically ill; Avoid hypoglycemia - continue VTE prophylaxis with Heparin - continue stress ulcer prophylaxis with Famotidine - continue mobility protocols for pressure ulcer prophylaxis - continue fall precautions - continue wound care management per RN / WCT - Supportive transfusions as indicated to keep HgB>7g/dL - CXRs and ABGs in am - Continue to monitor neurologic function - Continue chronic home medications as clinically indicated - Continue all supportive care CONDITION: CRITICAL PROGNOSIS: GUARDED CODE STATUS: FULL CODE The high probability of a clinically significant, sudden or life threatening deterioration of the [Respiratory, cardiovascular & neurological] system(s) r equired my full and direct attention, intervention and personal management. The aggregate critical care time was [33] minutes without overlap. Time includes spent on [x] Data Review and interpretation [x] Patient assessment and monitoring of vital signs [x] Documentation [x] Medication orders and management Subjective Date of service: 11/27/19 Principal diagnosis: Ac hypoxemic resp failure; Pneumonia; PUI COVID-19; CHF; COPD; HTN Interval history: Patient is seen today for: Acute hypoxemic respiratory failure; Adan. Pneumonia (CAP); PUI COVID-19 infection; AE-CHF; AE-COPD; H/O CVA; HTN Seen and examined at bedside; 24 hour events reviewed; nursing and respiratory care staff consulted; no adverse overnight events reported to me; resting p eacefully in bed; awake and alert, ETT in place. No asynchrony, Off Fentanyl for SBT trial- PSV 12/28, OGT in place ; no emesis or overt aspiration; Failed SBT yesterday, apneic episodes Objective Vital Signs - 12hr 11/27/19 11/27/19 11/27/19 02:30 02:40 02:50 Temperature Pulse Rate 83 76 72 Pulse Rate [ From Monitor] Respiratory 20 20 20 Rate Blood Pressure 104/65 104/65 111/72 O2 Sat by Pulse 95 95 95 Oximetry 11/27/19 11/27/19 11/27/19 03:00 03:10 03:20 Temperature Pulse Rate 79 83 74 Pulse Rate [ From Monitor] Respiratory 19 20 20 Rate Blood Pressure 103/62 103/62 103/62 O2 Sat by Pulse 95 96 95 Oximetry 11/27/19 11/27/19 11/27/19 03:21 03:30 03:40 Temperature 99.4 F Pulse Rate 75 73 Pulse Rate [ From Monitor] Respiratory 20 21 Rate Blood Pressure 102/66 102/66 O2 Sat by Pulse 96 96 Oximetry 11/27/19 11/27/19 11/27/19 03:50 04:00 04:10 Temperature Pulse Rate 75 72 72 Pulse Rate [ 74 From Monitor] Respiratory 20 20 20 Rate Blood Pressure 109/55 100/59 100/59 O2 Sat by Pulse 95 95 97 Oximetry 11/27/19 11/27/19 11/27/19 04:20 04:30 04:40 Temperature Pulse Rate 81 91 H 91 H Pulse Rate [ From Monitor] Respiratory 19 20 20 Rate Blood Pressure 100/59 116/74 116/74 O2 Sat by Pulse 95 100 98 Oximetry 11/27/19 11/27/19 11/27/19 04:50 05:00 05:10 Temperature Pulse Rate 90 86 87 Pulse Rate [ From Monitor] Respiratory 19 20 20 Rate Blood Pressure 103/61 116/74 116/74 O2 Sat by Pulse 99 95 95 Oximetry 11/27/19 11/27/19 11/27/19 05:20 05:30 05:40 Temperature Pulse Rate 80 79 81 Pulse Rate [ From Monitor] Respiratory 20 20 19 Rate Blood Pressure 110/77 102/67 102/67 O2 Sat by Pulse 92 93 93 Oximetry 11/27/19 11/27/19 11/27/19 05:50 06:00 06:10 Temperature Pulse Rate 73 78 76 Pulse Rate [ From Monitor] Respiratory 20 20 20 Rate Blood Pressure 98/65 102/69 102/69 O2 Sat by Pulse 93 94 94 Oximetry 11/27/19 11/27/19 11/27/19 06:20 06:30 06:40 Temperature Pulse Rate 75 74 76 Pulse Rate [ From Monitor] Respiratory 20 20 20 Rate Blood Pressure 111/63 106/69 106/69 O2 Sat by Pulse 95 95 94 Oximetry 11/27/19 11/27/19 11/27/19 06:50 07:00 07:10 Temperature Pulse Rate 79 77 80 Pulse Rate [ From Monitor] Respiratory 21 13 20 Rate Blood Pressure 117/76 107/63 107/63 O2 Sat by Pulse 94 95 95 Oximetry 11/27/19 11/27/19 11/27/19 07:20 07:30 07:40 Temperature Pulse Rate 79 80 74 Pulse Rate [ From Monitor] Respiratory 11 L 20 20 Rate Blood Pressure 104/68 95/59 95/59 O2 Sat by Pulse 100 95 97 Oximetry 11/27/19 11/27/19 11/27/19 07:50 08:00 08:10 Temperature Pulse Rate 79 75 78 Pulse Rate [ From Monitor] Respiratory 12 15 13 Rate Blood Pressure 112/78 108/58 108/58 O2 Sat by Pulse 94 99 99 Oximetry 11/27/19 11/27/19 11/27/19 08:20 08:30 08:40 Temperature Pulse Rate 86 80 80 Pulse Rate [ From Monitor] Respiratory 19 14 19 Rate Blood Pressure 112/54 120/57 120/57 O2 Sat by Pulse 98 100 97 Oximetry 11/27/19 11/27/19 11/27/19 08:50 09:00 09:10 Temperature Pulse Rate 100 H 92 H 89 Pulse Rate [ From Monitor] Respiratory 18 10 L 18 Rate Blood Pressure 120/79 113/68 113/68 O2 Sat by Pulse 96 100 96 Oximetry 11/27/19 11/27/19 11/27/19 09:20 09:30 09:40 Temperature Pulse Rate 96 H 86 90 Pulse Rate [ From Monitor] Respiratory 18 16 13 Rate Blood Pressure 127/67 128/68 128/68 O2 Sat by Pulse 97 97 97 Oximetry 11/27/19 11/27/19 11/27/19 09:50 10:00 10:10 Temperature Pulse Rate 86 86 88 Pulse Rate [ From Monitor] Respiratory 11 L 20 13 Rate Blood Pressure 123/77 119/77 119/77 O2 Sat by Pulse 97 98 97 Oximetry 11/27/19 11/27/19 11/27/19 10:20 10:30 10:40 Temperature Pulse Rate 93 H 81 93 H Pulse Rate [ From Monitor] Respiratory 11 L 18 12 Rate Blood Pressure 125/78 122/79 122/79 O2 Sat by Pulse 98 97 97 Oximetry 11/27/19 11/27/19 11/27/19 10:50 11:00 11:05 Temperature Pulse Rate 102 H 85 83 Pulse Rate [ From Monitor] Respiratory 14 20 20 Rate Blood Pressure 126/83 124/73 124/73 O2 Sat by Pulse 97 98 98 Oximetry 11/27/19 11/27/19 11/27/19 11:10 11:20 11:30 Temperature Pulse Rate 81 81 84 Pulse Rate [ From Monitor] Respiratory 20 14 20 Rate Blood Pressure 124/73 117/81 116/75 O2 Sat by Pulse 97 99 98 Oximetry 11/27/19 11:40 Temperature Pulse Rate 82 Pulse Rate [ From Monitor] Respiratory 18 Rate Blood Pressure 116/75 O2 Sat by Pulse 97 Oximetry Constitutional: no acute distress, other (elderly and obese male, normocephalic with normal respiratory effort at rest on MVS) Eyes: non-icteric ENT: oropharynx moist, other (ETT 24 cm JASON) Neck: supple, no JVD Effort: normal Ascultation: Bilateral: clear, diminished breath sounds Percussion: Bilateral: not dull Cardiovascular: regular rate and rhythm Gastrointestinal: normoactive bowel sounds, soft, non-tender, non-distended Integumentary: normal Extremities: no cyanosis, no edema, pulses normal, no ischemia or petechiae Neurologic: non-focal exam (grossly), pupils equal and round, motor strength normal and Psychiatric: mood appropriate, affect normal CBC and BMP: 11/28/19 13:47 11/28/19 13:47 ABG, PT/INR, D-dimer: ABG ABG pH 7.393 pH Units (7.350-7.450) 11/27/19 04:11 ABG pCO2 49.0 mm Hg 11/27/19 04:11 ABG pO2 82.6 mm Hg (80.0-90.0) 11/27/19 04:11 ABG O2 Saturation 96.6 % (95.0-99.0) 11/27/19 04:11 PT/INR, D-dimer PT 12.7 Sec. (12.2-14.9) 11/25/19 05:11 INR 0.94 (0.87-1.13) 11/25/19 05:11 Abnormal lab findings: Abnormal Labs 11/24/19 11/24/19 11/24/19 02:53 02:53 03:45 WBC 14.3 H RDW 17.2 H Lymph % (Auto) [place] % (Auto) [place] # Seg Neutrophils % Seg Neutrophils # Seg Neutrophils # Man 8.3 H Monocytes # (Manual) 0.9 H ABG pH 7.313 L ABG pO2 102.8 H ABG HCO3 ABG O2 Saturation ABG Base Excess -2.9 L ABG Hemoglobin Oxyhemoglobin 93.9 L BUN Glucose 195 H POC Glucose Lactic Acid Lactate Dehydrogenase CK-MB (CK-2) 4.3 H NT-Pro-B Natriuret Pep 1181 H 11/24/19 11/24/19 11/24/19 04:53 04:53 10:37 WBC RDW Lymph % (Auto) [place] % (Auto) [place] # Seg Neutrophils % Seg Neutrophils # Seg Neutrophils # Man Monocytes # (Manual) ABG pH ABG pO2 ABG HCO3 ABG O2 Saturation ABG Base Excess ABG Hemoglobin Oxyhemoglobin BUN Glucose 162 H POC Glucose Lactic Acid 2.40 H* 2.50 H* Lactate Dehydrogenase 240 H CK-MB (CK-2) NT-Pro-B Natriuret Pep 11/24/19 11/24/19 11/24/19 12:21 14:50 19:54 WBC RDW Lymph % (Auto) [place] % (Auto) [place] # Seg Neutrophils % Seg Neutrophils # Seg Neutrophils # Man Monocytes # (Manual) ABG pH ABG pO2 ABG HCO3 ABG O2 Saturation ABG Base Excess ABG Hemoglobin Oxyhemoglobin BUN Glucose POC Glucose 145 H 143 H 124 H Lactic Acid Lactate Dehydrogenase CK-MB (CK-2) NT-Pro-B Natriuret Pep 11/25/19 11/25/19 11/25/19 00:18 03:18 05:11 WBC 13.7 H RDW 17.1 H Lymph % (Auto) 10.8 L [place] % (Auto) 8.7 H [place] # 1.2 H Seg Neutrophils % 80.2 H Seg Neutrophils # 11.0 H Seg Neutrophils # Man Monocytes # (Manual) ABG pH 7.333 L ABG pO2 61.2 L ABG HCO3 ABG O2 Saturation 90.2 L ABG Base Excess ABG Hemoglobin 13.7 L Oxyhemoglobin 88.2 L BUN Glucose POC Glucose 109 H Lactic Acid Lactate Dehydrogenase CK-MB (CK-2) NT-Pro-B Natriuret Pep 11/25/19 11/25/19 11/26/19 05:11 11:40 03:12 WBC RDW Lymph % (Auto) [place] % (Auto) [place] # Seg Neutrophils % Seg Neutrophils # Seg Neutrophils # Man Monocytes # (Manual) ABG pH ABG pO2 155.1 H ABG HCO3 27.8 H ABG O2 Saturation ABG Base Excess ABG Hemoglobin 12.2 L Oxyhemoglobin BUN 23 H Glucose 110 H POC Glucose 108 H Lactic Acid Lactate Dehydrogenase CK-MB (CK-2) NT-Pro-B Natriuret Pep 11/26/19 11/26/19 11/26/19 06:17 10:43 10:43 WBC 11.4 H RDW 17.1 H Lymph % (Auto) [place] % (Auto) [place] # Seg Neutrophils % Seg Neutrophils # Seg Neutrophils # Man Monocytes # (Manual) ABG pH ABG pO2 ABG HCO3 ABG O2 Saturation ABG Base Excess ABG Hemoglobin Oxyhemoglobin BUN 29 H Glucose POC Glucose 107 H Lactic Acid Lactate Dehydrogenase CK-MB (CK-2) NT-Pro-B Natriuret Pep 11/26/19 11/27/19 11/27/19 17:11 01:53 04:11 WBC RDW Lymph % (Auto) [place] % (Auto) [place] # Seg Neutrophils % Seg Neutrophils # Seg Neutrophils # Man Monocytes # (Manual) ABG pH ABG pO2 ABG HCO3 29.2 H ABG O2 Saturation ABG Base Excess 3.4 H ABG Hemoglobin 13.3 L Oxyhemoglobin 94.5 L BUN Glucose POC Glucose 113 H 108 H Lactic Acid Lactate Dehydrogenase CK-MB (CK-2) NT-Pro-B Natriuret Pep 11/27/19 05:27 WBC RDW Lymph % (Auto) [place] % (Auto) [place] # Seg Neutrophils % Seg Neutrophils # Seg Neutrophils # Man Monocytes # (Manual) ABG pH ABG pO2 ABG HCO3 ABG O2 Saturation ABG Base Excess ABG Hemoglobin Oxyhemoglobin BUN Glucose POC Glucose 111 H Lactic Acid Lactate Dehydrogenase CK-MB (CK-2) NT-Pro-B Natriuret Pep Chest x-ray: image reviewed (Bilateral lower lobe infiltrates, with effusions) Allied health notes reviewed: RT
--- NOTE | 2019-11-27 15:38 | Progress Note ---
Assessment and Plan Assessment and plan: Patient is a 64-year-old male with known history of hypertension, COPD, history of coronary artery disease, CHF with ejection fraction of 20 to 25% in August 2018 presenting to the emergency room today via EMS complaining of shortness of breath. Patient was found to be hypoxic and in respiratory distress. Patient was placed on CPAP in route to the hospital. Oxygen saturation was said to be 88%. Started on Solu-Medrol, Lasix and magnesium in ED, patient was also found to be lethargic with an oxygen saturation of about 91% on CPAP. He was subsequently intubated. Work-up in the emergency room including chest x-ray reveals bilateral pneumonia. He had an elevated white count of 14 and also had an elevated BNP. Patient to be admitted to the ICU and placed on empiric IV antibiotics for pneumonia. He will also be tested for COVID-19 and placed on isolation precautions. Most of the history was gotten from the ER physician as patient is currently intubated. 11/25: Leukocytosis improving. Continue current management anticipate extubation possible today. 11/26. Still intubated. Failed SBT yesterday. Repeat COVID-19 test is negative. Problems Acute hypoxemic respiratory failure Bilateral pneumonia, community acquired, - COIVD 19 NEGATIVE Person under investigation for COVID-19 infection. Acute congestive heart failure exacerbation Presumed systolic History of cerebrovascular accident. Tobacco use disorder Acute chronic obstructive pulmonary disease exacerbation. Hypertension and hypertensive urgency at presentation. History of arthritis. Leukocytosis. Lactic acidosis. Oropharyngeal dysphagia S/P Knee surgery History of peptic Ulcer Surgery Plan Continue supportive care Wean from vent as tolerated Continue ceftriaxone 2 gm IV qday and azithromycin 500 mg PO qday per ID Steroids Repeat Covid 19 test Continue diuresis Aspiration precautions DVT/GI prophy Discussed with family The high probability of a clinically significant, sudden or life threatening deterioration of the [Respiratory, cardiovascular & neurological] system(s) required my full and direct attention, intervention and personal management. The aggregate critical care time was [35] minutes without overlap. Time includes spent on [x] Data Review and interpretation [x] Patient assessment and monitoring of vital signs [x] Documentation [x] Medication orders and management History Interval history: No change in medical condition. Still remains intubated. Awaiting repeat COVID- 19 test Hospitalist Physical - Constitutional Vitals: Temp Pulse Resp BP Pulse Ox 99.4 F 96 H 20 116/75 98 11/27/19 03:21 11/27/19 12:00 11/27/19 12:00 11/27/19 11:40 11/27/19 12:00 General appearance: Present: no acute distress, well-nourished, other (Inntubated) - EENT Eyes: Present: PERRL - Respiratory Respiratory: bilateral: diminished - Cardiovascular Heart Sounds: Present: S1 & S2 - Extremities Extremities: No edema - Abdominal General gastrointestinal: soft, non-tender, normal bowel sounds - Neurologic Neurologic: CNII-XII intact HEART Score - HEART Score Troponin: Troponin T < 0.010 ng/mL (0.00-0.029) 11/24/19 02:53 Results - Labs CBC & Chem 7: 11/26/19 10:43 11/26/19 10:43 Labs: Laboratory Last Values WBC 11.4 K/mm3 (4.5-11.0) H 11/26/19 10:43 RBC 4.59 M/mm3 (3.65-5.03) 11/26/19 10:43 Hgb 13.4 gm/dl (11.8-15.2) 11/26/19 10:43 Hct 41.7 % (35.5-45.6) 11/26/19 10:43 MCV 91 fl (84-94) 11/26/19 10:43 MCH 29 pg (28-32) 11/26/19 10:43 MCHC 32 % (32-34) 11/26/19 10:43 RDW 17.1 % (13.2-15.2) H 11/26/19 10:43 Plt Count 182 K/mm3 (140-440) 11/26/19 10:43 Lymph % (Auto) 10.8 % (13.4-35.0) L 11/25/19 05:11 Hendry % (Auto) 8.7 % (0.0-7.3) H 11/25/19 05:11 Eos % (Auto) 0.0 % (0.0-4.3) 11/25/19 05:11 Baso % (Auto) 0.3 % (0.0-1.8) 11/25/19 05:11 Lymph # 1.5 K/mm3 (1.2-5.4) 11/25/19 05:11 Hendry # 1.2 K/mm3 (0.0-0.8) H 11/25/19 05:11 Eos # 0.0 K/mm3 (0.0-0.4) 11/25/19 05:11 Baso # 0.0 K/mm3 (0.0-0.1) 11/25/19 05:11 Add Manual Diff Complete 11/24/19 02:53 Total Counted 100 11/24/19 02:53 Seg Neutrophils % 80.2 % (40.0-70.0) H 11/25/19 05:11 Seg Neuts % (Manual) 58.0 % (40.0-70.0) 11/24/19 02:53 Band Neutrophils % 0 % 11/24/19 02:53 Lymphocytes % (Manual) 33.0 % (13.4-35.0) 11/24/19 02:53 Reactive Lymphs % (Man) 0 % 11/24/19 02:53 Monocytes % (Manual) 6.0 % (0.0-7.3) 11/24/19 02:53 Eosinophils % (Manual) 3.0 % (0.0-4.3) 11/24/19 02:53 Basophils % (Manual) 0 % (0.0-1.8) 11/24/19 02:53 Metamyelocytes % 0 % 11/24/19 02:53 Myelocytes % 0 % 11/24/19 02:53 Promyelocytes % 0 % 11/24/19 02:53 Blast Cells % 0 % 11/24/19 02:53 Nucleated RBC % Not Reportable 11/24/19 02:53 Seg Neutrophils # 11.0 K/mm3 (1.8-7.7) H 11/25/19 05:11 Seg Neutrophils # Man 8.3 K/mm3 (1.8-7.7) H 11/24/19 02:53 Band Neutrophils # 0.0 K/mm3 11/24/19 02:53 Lymphocytes # (Manual) 4.7 K/mm3 (1.2-5.4) 11/24/19 02:53 Abs React Lymphs (Man) 0.0 K/mm3 11/24/19 02:53 Monocytes # (Manual) 0.9 K/mm3 (0.0-0.8) H 11/24/19 02:53 Eosinophils # (Manual) 0.4 K/mm3 (0.0-0.4) 11/24/19 02:53 Basophils # (Manual) 0.0 K/mm3 (0.0-0.1) 11/24/19 02:53 Metamyelocytes # 0.0 K/mm3 11/24/19 02:53 Myelocytes # 0.0 K/mm3 11/24/19 02:53 Promyelocytes # 0.0 K/mm3 11/24/19 02:53 Blast Cells # 0.0 K/mm3 11/24/19 02:53 WBC Morphology Not Reportable 11/24/19 02:53 Hypersegmented Neuts Not Reportable 11/24/19 02:53 Hyposegmented Neuts Not Reportable 11/24/19 02:53 Hypogranular Neuts Not Reportable 11/24/19 02:53 Smudge Cells Not Reportable 11/24/19 02:53 Toxic Granulation Not Reportable 11/24/19 02:53 Toxic Vacuolation Not Reportable 11/24/19 02:53 Dohle Bodies Not Reportable 11/24/19 02:53 Pelger-Huet Anomaly Not Reportable 11/24/19 02:53 Hector Rods Not Reportable 11/24/19 02:53 Platelet Estimate Consistent w auto 11/24/19 02:53 Clumped Platelets Not Reportable 11/24/19 02:53 Plt Clumps, EDTA Not Reportable 11/24/19 02:53 Large Platelets Not Reportable 11/24/19 02:53 Giant Platelets Not Reportable 11/24/19 02:53 Platelet Satelliting Not Reportable 11/24/19 02:53 Plt Morphology Comment Not Reportable 11/24/19 02:53 RBC Morphology Not Reportable 11/24/19 02:53 Dimorphic RBCs Not Reportable 11/24/19 02:53 Polychromasia Not Reportable 11/24/19 02:53 Hypochromasia Not Reportable 11/24/19 02:53 Poikilocytosis Not Reportable 11/24/19 02:53 Anisocytosis Few 11/24/19 02:53 Microcytosis Not Reportable 11/24/19 02:53 Macrocytosis Not Reportable 11/24/19 02:53 Spherocytes Not Reportable 11/24/19 02:53 Pappenheimer Bodies Not Reportable 11/24/19 02:53 Sickle Cells Not Reportable 11/24/19 02:53 Target Cells Not Reportable 11/24/19 02:53 Tear Drop Cells Not Reportable 11/24/19 02:53 Ovalocytes Not Reportable 11/24/19 02:53 Helmet Cells Not Reportable 11/24/19 02:53 Gottlieb-Chauvin Bodies Not Reportable 11/24/19 02:53 Inola Rings Not Reportable 11/24/19 02:53 Oc Cells Not Reportable 11/24/19 02:53 Bite Cells Not Reportable 11/24/19 02:53 Crenated Cell Not Reportable 11/24/19 02:53 Elliptocytes Not Reportable 11/24/19 02:53 Acanthocytes (Spur) Not Reportable 11/24/19 02:53 Rouleaux Not Reportable 11/24/19 02:53 Hemoglobin C Crystals Not Reportable 11/24/19 02:53 Schistocytes Not Reportable 11/24/19 02:53 Malaria parasites Not Reportable 11/24/19 02:53 Clifford Bodies Not Reportable 11/24/19 02:53 Hem Pathologist Commnt No 11/24/19 02:53 PT 12.7 Sec. (12.2-14.9) 11/25/19 05:11 INR 0.94 (0.87-1.13) 11/25/19 05:11 ABG pH 7.393 pH Units (7.350-7.450) 11/27/19 04:11 ABG pCO2 49.0 mm Hg 11/27/19 04:11 ABG pO2 82.6 mm Hg (80.0-90.0) 11/27/19 04:11 ABG HCO3 29.2 mmol/L (20.0-26.0) H 11/27/19 04:11 ABG O2 Saturation 96.6 % (95.0-99.0) 11/27/19 04:11 ABG O2 Content 17.7 (0.0-44) 11/27/19 04:11 ABG Base Excess 3.4 mmol/L (-2.0-3.0) H 11/27/19 04:11 ABG Hemoglobin 13.3 gm/dl (14.0-18.0) L 11/27/19 04:11 ABG Carboxyhemoglobin 1.6 % (0.0-5.0) 11/27/19 04:11 ABG Methemoglobin 0.5 % (0.0-1.5) 11/27/19 04:11 Oxyhemoglobin 94.5 % (95.0-99.0) L 11/27/19 04:11 FiO2 40 % 11/27/19 04:11 Sodium 144 mmol/L (137-145) 11/26/19 10:43 Potassium 4.1 mmol/L (3.6-5.0) 11/26/19 10:43 Chloride 103.8 mmol/L (98-107) 11/26/19 10:43 Carbon Dioxide 27 mmol/L (22-30) 11/26/19 10:43 Anion Gap 17 mmol/L 11/26/19 10:43 BUN 29 mg/dL (9-20) H 11/26/19 10:43 Creatinine 1.0 mg/dL (0.8-1.3) 11/26/19 10:43 Estimated GFR > 60 ml/min 11/26/19 10:43 BUN/Creatinine Ratio 29 % 11/26/19 10:43 Glucose 100 mg/dL (75-100) 11/26/19 10:43 POC Glucose 105 (70-105) 11/27/19 11:54 Lactic Acid 2.50 mmol/L (0.7-2.0) H* 11/24/19 10:37 Calcium 9.3 mg/dL (8.4-10.2) 11/26/19 10:43 Ferritin 84.4 ng/mL (30.0-300.0) 11/24/19 04:53 Total Bilirubin 0.40 mg/dL (0.1-1.2) 11/24/19 02:53 AST 22 units/L (5-40) 11/24/19 02:53 ALT 17 units/L (7-56) 11/24/19 02:53 Alkaline Phosphatase 89 units/L (35-129) 11/24/19 02:53 Lactate Dehydrogenase 240 units/L (91-180) H 11/24/19 04:53 Total Creatine Kinase 141 units/L (55-170) 11/24/19 02:53 CK-MB (CK-2) 4.3 ng/mL (0.0-4.0) H 11/24/19 02:53 CK-MB (CK-2) Rel Index 3.0 (0-4) 11/24/19 02:53 Troponin T < 0.010 ng/mL (0.00-0.029) 11/24/19 02:53 C-Reactive Protein 0.10 mg/dL (0.00-1.30) 11/24/19 04:53 NT-Pro-B Natriuret Pep 1181 pg/mL (0-900) H 11/24/19 02:53 Total Protein 7.4 g/dL (6.3-8.2) 11/24/19 02:53 Albumin 4.5 g/dL (3.9-5) 11/24/19 02:53 Albumin/Globulin Ratio 1.6 % 11/24/19 02:53 Procalcitonin 0.12 ng/mL (<0.15) 11/25/19 05:11 Coronavirus (PCR) Negative (Negative) 11/26/19 08:26 Microbiology: Microbiology 11/24/19 04:53 Peripheral/Venous Blood Culture - Preliminary NO GROWTH AFTER 72 HOURS 11/24/19 05:27 Peripheral/Venous Blood Culture - Preliminary NO GROWTH AFTER 72 HOURS Hoffman/IV: Voiding Method Indwelling Catheter IV Catheter Type [Left Wrist] INT / Saline Lock IV Catheter Type [Right INT / Saline Lock Antecubital] Active Medications - Current Medications Current Medications: Generic Name Dose Route Start Last Admin Trade Name Freq PRN Reason Stop Dose Admin Acetaminophen 650 mg 11/25/19 17:27 11/25/19 18:26 Tylenol FEEDTUBE 650 mg Q6H PRN Administration Pain, Mild (1-3) Azithromycin 500 mg 11/25/19 22:00 11/26/19 22:33 Zithromax PO 11/28/19 23:59 500 mg QDAY@2200 CAR Administration Famotidine 20 mg 11/25/19 10:00 11/26/19 22:33 Pepcid PO 20 mg BID CAR Administration Fentanyl 50 mcg 11/24/19 09:55 Sublimaze IV Q10MIN PRN ANALGESIA Furosemide 20 mg 11/24/19 18:00 11/27/19 06:00 Lasix IV 20 mg 0600,1800 CAR Administration Heparin Sodium (Porcine) 5,000 unit 11/24/19 06:00 11/27/19 06:00 Heparin SUB-Q 5,000 unit Q8HR CAR Administration Hydrophilic Ointment 1 applic 11/24/19 02:23 Vaseline Lip Therapy TP Q2HR PRN Dry Lips Ceftriaxone Sodium 2 gm in 100 mls @ 200 mls/hr 11/24/19 22:00 11/26/19 22:34 Rocephin/Ns 2 Gm/100 Ml IV 11/28/19 22:29 200 mls/hr Q24HR@2200 CAR Administration Protocol Fentanyl Citrate 2,000 mcg in 100 mls @ 5.67 mls/hr 11/24/19 10:00 11/27/19 05:59 Fentanyl Drip Premix IV 3 mcg/kg/hr TITR CAR 17.01 mls/hr Administration Protocol 1 MCG/KG/HR Midazolam HCl 2 mg 11/24/19 02:23 11/24/19 02:25 Versed IV 2 mg Q10MIN PRN Administration Sedation Multi-Ingred Cream/Lotion/Oil/Oint 1 applic 11/24/19 02:23 Artificial Tears Ophth Oint OU Q4HR PRN Dry Eye(s) Ondansetron HCl 4 mg 11/24/19 05:31 Zofran IV Q8H PRN Nausea And Vomiting Sodium Chloride 10 ml 11/24/19 10:00 11/26/19 12:55 Sodium Chloride Flush Syringe 10 Ml IV 10 ml BID CAR Administration Sodium Chloride 10 ml 11/24/19 05:31 Sodium Chloride Flush Syringe 10 Ml IV PRN PRN LINE FLUSH Nutrition/Malnutrition Assess - Dietary Evaluation Nutrition/Malnutrition Findings: Nutrition Notes Start: 11/24/19 1 2:22 Freq: Status: Active Protocol: Document 11/26/19 11:18 HEATHER (Rec: 11/26/19 11:28 HEATHER [id number]) Co-Sign 11/26/19 11:18 LP Nutrition Notes Initial or Follow up Reassessment Current Diagnosis Coronary Artery Disease,Heart Failure,Respiratory Failure, Stroke,Hyperlipidemia Current Diet TF Vital HP 65ml/hr Labs/Tests Reviewed Pertinent Medications Lasix Height 6 ft 2 in Weight 113.39 kg [place] Body Weight (kg) 86.36 BMI 32.1 Weight Status Obese Subjective/Other Information Pt is running at TF goal Vital HP 65ml/hr and tolerating TF Percent of energy/protein needs met: 98%/70% Burn Absent Trauma Absent GI Symptoms None Usual Diet at Home unknown Skin Integrity/Comment intact Current % PO Negligible Minimum of two criteria No physical signs of malnutrition #1 Nutrition Diagnosis Inadequate oral intake Diagnosis Progress(for reassessment Continues documentation) Is patient on ventilator? Yes Is Patient Ambulatory and/or Out of Bed No REE-([facility]-confined to bed) 2403.072 Kcal/Kg value to use for calculation 14 Approximate Energy Requirements Using 1587 kcal/Kg Calculation Used for Recommendations Kcal/kg Additional Notes Protein needs 162g (up to 2g/ kg IBW) Fluid needs are 1.5L Nutrition Intervention Change Diet Order: Continue TF Nutrition Support: Vital HP at 65ml/hr Flush 50ml q4hr Kcal 1,560 Protein (gm) 114 Fluid (mL) 1,304 % RDI: 100 Goal #1 Pt will meet 75-100% of energy and protein needs Anticipated Discharge Needs: unable to determine at this time Follow-Up By: 12/01/19 Additional Comments Ck TF tolerance
--- NOTE | 2019-11-27 17:26 | Progress Note ---
Assessment and Plan Cultures: Blood culture 11/24/2019 pending Urine culture 11/24/2019 pending COVID-19 negative x2 A/P: 64-year-old male past medical history hypertension, COPD, CAD, CHF with reduced ejection fraction admitted with acute hypoxic respiratory failure likely secondary to pneumonia #Acute hypoxemic respiratory failure: Likely secondary to pneumonia, COVID-19 testing negative so far. Currently intubated. #Bilateral pneumonia: COVID-19 negative twice. Procalcitonin negative, as such most likely a viral pneumonia. Given negative COVID-19 twice, most likely similar viral pneumonia. Fevers and white count resolved #CHF #COPD Recs: -Continue ceftriaxone 2 gm IV qday and azithromycin 500 mg PO qday. Complete 5 days. -Steroids per ICU Thank you for the consult, we will continue to follow. Michael Wade MD [facility] ([facility]) M: [phone] O: [phone] F: [phone] Subjective Date of service: 11/27/19 Principal diagnosis: Ac hypoxemic resp failure; Pneumonia; PUI COVID-19; CHF; COPD; HTN Interval history: Afebrile now, no new white count available. Cultures remain negative at this time. Remains mechanically ventilated. Imaging personally reviewed: Chest x-ray: Improvement on the right, worsening left Objective - Exam Narrative Exam: Physical Exam: Constitutional: Intubated, sedated Head, Ears, Nose: Normocephalic, atraumatic. External ears, nose normal Eyes: Conjunctivae/corneas clear. No icterus. No ptosis. Neck: Intubated Oral: Intubated Cardiovascular: S1, S2 normal. Respiratory: Good air entry, clear to auscultation bilaterally GI: Soft, non-tender; bowel sounds normal. No peritoneal signs. Musculoskeletal: No pedal edema, no cyanosis. Skin: No rash or abscess Hem/Lymphatic: No palpable cervical or supraclavicular nodes. No lymphangitis Psych: Sedated Neurological: Sedated - Constitutional Vitals: Vital Signs Temp Pulse Resp BP Pulse Ox 99.4 F 86 21 112/72 96 11/27/19 03:21 11/27/19 17:10 11/27/19 17:10 11/27/19 17:10 11/27/19 17:10 Temperature -Last 24 Hours Temperature 99.4 F Temperature 98.8 F Temperature 98.5 F - Labs CBC & Chem 7: 11/26/19 10:43 11/26/19 10:43 Labs: Abnormal lab results 11/26/19 11/27/19 11/27/19 Range/Units 17:11 01:53 04:11 ABG HCO3 29.2 H (20.0-26.0) mmol/L ABG Base Excess 3.4 H (-2.0-3.0) mmol/L ABG Hemoglobin 13.3 L (14.0-18.0) gm/dl Oxyhemoglobin 94.5 L (95.0-99.0) % POC Glucose 113 H 108 H (70-105) 11/27/19 Range/Units 05:27 ABG HCO3 (20.0-26.0) mmol/L ABG Base Excess (-2.0-3.0) mmol/L ABG Hemoglobin (14.0-18.0) gm/dl Oxyhemoglobin (95.0-99.0) % POC Glucose 111 H (70-105)
--- NOTE | 2019-11-27 20:31 | XRay Report ---
ABDOMEN 1 VIEW INDICATION / CLINICAL INFORMATION: NG tube. COMPARISON: Radiograph dated 11/24/2019. FINDINGS: TUBES / LINES: Esophagogastric tube tip and sidehole project over the left upper quadrant of the abdo men. BOWEL GAS PATTERN: No significant abnormality. FREE AIR / EXTRALUMINAL GAS: None seen. ADDITIONAL FINDINGS: No significant additional findings. IMPRESSION: Esophagogastric tube projects in expected position. Signer Name: Jae Yadav MD Signed: 11/27/2019 8:27 PM Workstation Name: [id number]
[2019-11-27] MEDS: cefTRIAXone/NS 2 GM/100 ML 2 GM/100 ML BAG IV SCH (22:20)
[2019-11-27] MEDS: AZITHROMYCIN 250 MG TAB PO SCH (22:53)
[2019-11-28] MEDS: fentaNYL DRIP Premix 2,000 MCG/100 ML BAG IV SCH ×2 (06:30→19:56)
[2019-11-28] MEDS: HEPARIN 5,000 UNIT/1 ML VIAL SUB-Q SCH ×3 (06:31→22:12)
[2019-11-28] MEDS: FUROSEMIDE 20 MG/2 ML INJ IV SCH ×2 (06:32→18:14)
--- NOTE | 2019-11-28 09:34 | XRay Report ---
CHEST 1 VIEW 11/28/2019 8:24 AM INDICATION / CLINICAL INFORMATION: follow up respiratory failure. COMPARISON: 11/27/19 FINDINGS: SUPPORT DEVICES: Endotracheal tube is unchanged. Esophagogastric tube has been removed. HEART / MEDIASTINUM: Stable. LUNGS / PLEURA: Improvement in left basilar density. Right basilar density/atelectasis is unchanged. No pneumothorax. ADDITIONAL FINDINGS: No significant additional findings. IMPRESSION: 1. Interval improvement. Signer Name: Wellington Spencer MD Signed: 11/28/2019 9:29 AM Workstation Name: [id number]
[2019-11-28] MEDS: FAMOTIDINE 20 MG TAB PO SCH ×2 (11:30→22:08)
--- NOTE | 2019-11-28 11:55 | Cat Scan Report ---
CT HEAD WITHOUT CONTRAST INDICATION / CLINICAL INFORMATION: Change in neurological assessment and vision. TECHNIQUE: All CT scans at this location are performed using CT dose reduction for ALARA by means of automated e xposure control. COMPARISON: CT dated 12/29/18. MRI dated 12/30/18 FINDINGS: HEMORRHAGE: None. EXTRA-AXIAL SPACES: Normal in size and morphology for the patient's age. VENTRICULAR SYSTEM: Normal in size and morphology for the patient's age. CEREBRAL PARENCHYMA: No significant abnormality. No acute territorial infarct. Small chronic ischemic lesion in the posterior right frontal lobe. MIDLINE SHIFT OR HERNIATION: None. CEREBELLUM / BRAINSTEM: No significant abnormality. ORBITS: Normal as visualized. SOFT TISSUES of HEAD: No significant abnormality. CALVARIUM: No significant abnormality. PARANASAL SINUSES / MASTOID AIR CELLS: Normal as visualized. ADDITIONAL FINDINGS: None. IMPRESSION: 1. No acute intracranial abnormality. No significant change. Signer Name: Wellington Spencer MD Signed: 11/28/2019 11:51 AM Workstation Name: [id number]
[2019-11-28 14:17] LABS: Basophils # (Auto) 0.1 K/mm3 (0.0-0.1); Basophils % (Auto) 0.5 % (0.0-1.8); Eosinophils # (Auto) 0.2 K/mm3 (0.0-0.4); Eosinophils % (Auto) 1.6 % (0.0-4.3); Hematocrit 42.5 % (35.5-45.6); Hemoglobin 13.7 gm/dl (11.8-15.2); Lymphocytes # (Auto) 1.9 K/mm3 (1.2-5.4); Lymphocytes % (Auto) 16.6 % (13.4-35.0); Mean Corpuscular HGB Conc 32 % (32-34); Mean Corpuscular Volume 91 fl (84-94); Monocytes # (Auto) 1.1 K/mm3 (0.0-0.8); Monocytes % (Auto) 9.9 % (0.0-7.3); Platelet Count 168 K/mm3 (140-440); Red Blood Count 4.67 M/mm3 (3.65-5.03); Red Cell Distribution Width 16.1 % (13.2-15.2)
[2019-11-28 14:35] LABS: Alanine Aminotransferase 42 units/L (7-56); Albumin 3.7 g/dL (3.9-5); BUN/Creatinine Ratio 26; Blood Urea Nitrogen 23 mg/dL (9-20); Hemolysis Index 6
--- NOTE | 2019-11-28 15:28 | Progress Note ---
Assessment and Plan Assessment and plan: Patient is a 64-year-old male with known history of hypertension, COPD, history of coronary artery disease, CHF with ejection fraction of 20 to 25% in August 2018 presenting to the emergency room today via EMS complaining of shortness of breath. Patient was found to be hypoxic and in respiratory distress. Patient was placed on CPAP in route to the hospital. Oxygen saturation was said to be 88%. Started on Solu-Medrol, Lasix and magnesium in ED, patient was also found to be lethargic with an oxygen saturation of about 91% on CPAP. He was subsequently intubated. Work-up in the emergency room including chest x-ray reveals bilateral pneumonia. He had an elevated white count of 14 and also had an elevated BNP. Patient to be admitted to the ICU and placed on empiric IV antibiotics for pneumonia. He will also be tested for COVID-19 and placed on isolation precautions. Most of the history was gotten from the ER physician as patient is currently intubated. 11/25: Leukocytosis improving. Continue current management anticipate extubation possible today. 11/26. Still intubated. Failed SBT yesterday. Repeat COVID-19 test is negative. 12/07. CT head ordered for possible neuro status change is negative. More responsive as the day progressed as per RN. Chest xray today shows interval improvement. He is still on antibiotics - will complete regimen today. Problems Acute hypoxemic respiratory failure Bilateral pneumonia, community acquired, - COIVD 19 NEGATIVE Person under investigation for COVID-19 infection. Acute congestive heart failure exacerbation Presumed systolic History of cerebrovascular accident. Tobacco use disorder Acute chronic obstructive pulmonary disease exacerbation. Hypertension and hypertensive urgency at presentation. History of arthritis. Leukocytosis. Lactic acidosis. Oropharyngeal dysphagia S/P Knee surgery History of peptic Ulcer Surgery Plan Continue supportive care Wean from vent as tolerated Continue ceftriaxone 2 gm IV qday and azithromycin 500 mg PO qday per ID Steroids Repeat Covid 19 test negative Continue diuresis Aspiration precautions DVT/GI prophy Discussed with family The high probability of a clinically significant, sudden or life threatening deterioration of the [Respiratory, cardiovascular & neurological] system(s) required my full and direct attention, intervention and personal management. The aggregate critical care time was [35] minutes without overlap. Time includes spent on [x] Data Review and interpretation [x] Patient assessment and monitoring of vital signs [x] Documentation [x] Medication orders and management History Interval history: No change in medical condition. Still remains intubated. COVID-19 test negative. Hospitalist Physical - Constitutional Vitals: Temp Pulse Resp BP Pulse Ox 100.0 F H 80 22 114/71 96 11/28/19 12:00 11/28/19 11:10 11/28/19 06:00 11/28/19 11:10 11/28/19 11:10 General appearance: Present: no acute distress, well-nourished, other (Inntubated) - EENT Eyes: Present: PERRL - Respiratory Respiratory: bilateral: diminished - Cardiovascular Heart Sounds: Present: S1 & S2 - Abdominal General gastrointestinal: soft, non-tender, non-distended, normal bowel sounds - Neurologic Neurologic: other (Sedated and intubated. ) HEART Score - HEART Score Troponin: Troponin T < 0.010 ng/mL (0.00-0.029) 11/24/19 02:53 Results - Labs CBC & Chem 7: 11/28/19 13:47 11/28/19 13:47 Labs: Laboratory Last Values WBC 11.3 K/mm3 (4.5-11.0) H 11/28/19 13:47 RBC 4.67 M/mm3 (3.65-5.03) 11/28/19 13:47 Hgb 13.7 gm/dl (11.8-15.2) 11/28/19 13:47 Hct 42.5 % (35.5-45.6) 11/28/19 13:47 MCV 91 fl (84-94) 11/28/19 13:47 MCH 29 pg (28-32) 11/28/19 13:47 MCHC 32 % (32-34) 11/28/19 13:47 RDW 16.1 % (13.2-15.2) H 11/28/19 13:47 Plt Count 168 K/mm3 (140-440) 11/28/19 13:47 Lymph % (Auto) 16.6 % (13.4-35.0) 11/28/19 13:47 [place] % (Auto) 9.9 % (0.0-7.3) H 11/28/19 13:47 Eos % (Auto) 1.6 % (0.0-4.3) 11/28/19 13:47 Baso % (Auto) 0.5 % (0.0-1.8) 11/28/19 13:47 Lymph # 1.9 K/mm3 (1.2-5.4) 11/28/19 13:47 [place] # 1.1 K/mm3 (0.0-0.8) H 11/28/19 13:47 Eos # 0.2 K/mm3 (0.0-0.4) 11/28/19 13:47 Baso # 0.1 K/mm3 (0.0-0.1) 11/28/19 13:47 Add Manual Diff Complete 11/24/19 02:53 Total Counted 100 11/24/19 02:53 Seg Neutrophils % 71.4 % (40.0-70.0) H 11/28/19 13:47 Seg Neuts % (Manual) 58.0 % (40.0-70.0) 11/24/19 02:53 Band Neutrophils % 0 % 11/24/19 02:53 Lymphocytes % (Manual) 33.0 % (13.4-35.0) 11/24/19 02:53 Reactive Lymphs % (Man) 0 % 11/24/19 02:53 Monocytes % (Manual) 6.0 % (0.0-7.3) 11/24/19 02:53 Eosinophils % (Manual) 3.0 % (0.0-4.3) 11/24/19 02:53 Basophils % (Manual) 0 % (0.0-1.8) 11/24/19 02:53 Metamyelocytes % 0 % 11/24/19 02:53 Myelocytes % 0 % 11/24/19 02:53 Promyelocytes % 0 % 11/24/19 02:53 Blast Cells % 0 % 11/24/19 02:53 Nucleated RBC % Not Reportable 11/24/19 02:53 Seg Neutrophils # 8.1 K/mm3 (1.8-7.7) H 11/28/19 13:47 Seg Neutrophils # Man 8.3 K/mm3 (1.8-7.7) H 11/24/19 02:53 Band Neutrophils # 0.0 K/mm3 11/24/19 02:53 Lymphocytes # (Manual) 4.7 K/mm3 (1.2-5.4) 11/24/19 02:53 Abs React Lymphs (Man) 0.0 K/mm3 11/24/19 02:53 Monocytes # (Manual) 0.9 K/mm3 (0.0-0.8) H 11/24/19 02:53 Eosinophils # (Manual) 0.4 K/mm3 (0.0-0.4) 11/24/19 02:53 Basophils # (Manual) 0.0 K/mm3 (0.0-0.1) 11/24/19 02:53 Metamyelocytes # 0.0 K/mm3 11/24/19 02:53 Myelocytes # 0.0 K/mm3 11/24/19 02:53 Promyelocytes # 0.0 K/mm3 11/24/19 02:53 Blast Cells # 0.0 K/mm3 11/24/19 02:53 WBC Morphology Not Reportable 11/24/19 02:53 Hypersegmented Neuts Not Reportable 11/24/19 02:53 Hyposegmented Neuts Not Reportable 11/24/19 02:53 Hypogranular Neuts Not Reportable 11/24/19 02:53 Smudge Cells Not Reportable 11/24/19 02:53 Toxic Granulation Not Reportable 11/24/19 02:53 Toxic Vacuolation Not Reportable 11/24/19 02:53 Dohle Bodies Not Reportable 11/24/19 02:53 Pelger-Huet Anomaly Not Reportable 11/24/19 02:53 Hector Rods Not Reportable 11/24/19 02:53 Platelet Estimate Consistent w auto 11/24/19 02:53 Clumped Platelets Not Reportable 11/24/19 02:53 Plt Clumps, EDTA Not Reportable 11/24/19 02:53 Large Platelets Not Reportable 11/24/19 02:53 Giant Platelets Not Reportable 11/24/19 02:53 Platelet Satelliting Not Reportable 11/24/19 02:53 Plt Morphology Comment Not Reportable 11/24/19 02:53 RBC Morphology Not Reportable 11/24/19 02:53 Dimorphic RBCs Not Reportable 11/24/19 02:53 Polychromasia Not Reportable 11/24/19 02:53 Hypochromasia Not Reportable 11/24/19 02:53 Poikilocytosis Not Reportable 11/24/19 02:53 Anisocytosis Few 11/24/19 02:53 Microcytosis Not Reportable 11/24/19 02:53 Macrocytosis Not Reportable 11/24/19 02:53 Spherocytes Not Reportable 11/24/19 02:53 Pappenheimer Bodies Not Reportable 11/24/19 02:53 Sickle Cells Not Reportable 11/24/19 02:53 Target Cells Not Reportable 11/24/19 02:53 Tear Drop Cells Not Reportable 11/24/19 02:53 Ovalocytes Not Reportable 11/24/19 02:53 Helmet Cells Not Reportable 11/24/19 02:[address] [place] Bodies Not Reportable 11/24/19 02:53 [place] Rings Not Reportable 11/24/19 02:53 [place] Cells Not Reportable 11/24/19 02:53 Bite Cells Not Reportable 11/24/19 02:53 Crenated Cell Not Reportable 11/24/19 02:53 Elliptocytes Not Reportable 11/24/19 02:53 Acanthocytes (Spur) Not Reportable 11/24/19 02:53 Rouleaux Not Reportable 11/24/19 02:53 Hemoglobin C Crystals Not Reportable 11/24/19 02:53 Schistocytes Not Reportable 11/24/19 02:53 Malaria parasites Not Reportable 11/24/19 02:53 [place] Bodies Not Reportable 11/24/19 02:53 Hem Pathologist Commnt No 11/24/19 02:53 PT 12.7 Sec. (12.2-14.9) 11/25/19 05:11 INR 0.94 (0.87-1.13) 11/25/19 05:11 ABG pH 7.44 (7.320-7.450) 11/28/19 05:00 POC ABG pCO2 44.2 mmHg (32.0-48.0) 11/28/19 05:00 ABG pCO2 49.0 mm Hg 11/27/19 04:11 POC ABG pO2 68.1 mmHg (83-108) L 11/28/19 05:00 ABG pO2 82.6 mm Hg (80.0-90.0) 11/27/19 04:11 POC ABG HCO3 29.6 11/28/19 05:00 ABG HCO3 29.2 mmol/L (20.0-26.0) H 11/27/19 04:11 ABG O2 Saturation 96.6 % (95.0-99.0) 11/27/19 04:11 ABG O2 Content 17.7 (0.0-44) 11/27/19 04:11 POC ABG Base Excess 4.8 11/28/19 05:00 ABG Base Excess 3.4 mmol/L (-2.0-3.0) H 11/27/19 04:11 ABG Hemoglobin 14.2 (12.0-17.5) 11/28/19 05:00 ABG Oxyhemoglobin 91.2 (94-98) L 11/28/19 05:00 ABG Carboxyhemoglobin 1.6 % (0.0-5.0) 11/27/19 04:11 ABG Methemoglobin 0.3 (0.0-1.5) 11/28/19 05:00 Oxyhemoglobin 94.5 % (95.0-99.0) L 11/27/19 04:11 Carboxyhemoglobin 1.3 (0.5-1.5) 11/28/19 05:00 FiO2 0.40 11/28/19 05:00 Sodium 143 mmol/L (137-145) 11/28/19 13:47 Potassium 4.1 mmol/L (3.6-5.0) 11/28/19 13:47 Chloride 101.7 mmol/L (98-107) 11/28/19 13:47 Carbon Dioxide 26 mmol/L (22-30) 11/28/19 13:47 Anion Gap 19 mmol/L 11/28/19 13:47 BUN 23 mg/dL (9-20) H 11/28/19 13:47 Creatinine 0.9 mg/dL (0.8-1.3) 11/28/19 13:47 Estimated GFR > 60 ml/min 11/28/19 13:47 BUN/Creatinine Ratio 26 % 11/28/19 13:47 Glucose 123 mg/dL (75-100) H 11/28/19 13:47 POC Glucose 110 (70-105) H 11/28/19 05:25 Lactic Acid 2.50 mmol/L (0.7-2.0) H* 11/24/19 10:37 Calcium 10.0 mg/dL (8.4-10.2) 11/28/19 13:47 Ferritin 84.4 ng/mL (30.0-300.0) 11/24/19 04:53 Total Bilirubin 0.80 mg/dL (0.1-1.2) 11/28/19 13:47 AST 21 units/L (5-40) 11/28/19 13:47 ALT 42 units/L (7-56) 11/28/19 13:47 Alkaline Phosphatase 57 units/L (35-129) 11/28/19 13:47 Lactate Dehydrogenase 240 units/L (91-180) H 11/24/19 04:53 Total Creatine Kinase 141 units/L (55-170) 11/24/19 02:53 CK-MB (CK-2) 4.3 ng/mL (0.0-4.0) H 11/24/19 02:53 CK-MB (CK-2) Rel Index 3.0 (0-4) 11/24/19 02:53 Troponin T < 0.010 ng/mL (0.00-0.029) 11/24/19 02:53 C-Reactive Protein 0.10 mg/dL (0.00-1.30) 11/24/19 04:53 NT-Pro-B Natriuret Pep 1181 pg/mL (0-900) H 11/24/19 02:53 Total Protein 6.9 g/dL (6.3-8.2) 11/28/19 13:47 Albumin 3.7 g/dL (3.9-5) L 11/28/19 13:47 Albumin/Globulin Ratio 1.2 % 11/28/19 13:47 Procalcitonin 0.12 ng/mL (<0.15) 11/25/19 05:11 Coronavirus (PCR) Negative (Negative) 11/26/19 08:26 Microbiology: Microbiology 11/24/19 04:53 Peripheral/Venous Blood Culture - Preliminary NO GROWTH AFTER 4 DAYS 11/24/19 05:27 Peripheral/Venous Blood Culture - Preliminary NO GROWTH AFTER 4 DAYS Hoffman/IV: Voiding Method Indwelling Catheter IV Catheter Type [Left Wrist] INT / Saline Lock IV Catheter Type [Right INT / Saline Lock Antecubital] Active Medications - Current Medications Current Medications: Generic Name Dose Route Start Last Admin Trade Name Freq PRN Reason Stop Dose Admin Acetaminophen 650 mg 11/25/19 17:27 11/25/19 18:26 Tylenol FEEDTUBE 650 mg Q6H PRN Administration Pain, Mild (1-3) Azithromycin 500 mg 11/25/19 22:00 11/27/19 22:53 Zithromax PO 11/28/19 23:59 500 mg QDAY@2200 CAR Administration Famotidine 20 mg 11/25/19 10:00 11/27/19 22:53 Pepcid PO 20 mg BID CAR Administration Fentanyl 50 mcg 11/24/19 09:55 Sublimaze IV Q10MIN PRN ANALGESIA Furosemide 20 mg 11/24/19 18:00 11/28/19 06:32 Lasix IV 20 mg 0600,1800 [facility] Administration Heparin Sodium (Porcine) 5,000 unit 11/24/19 06:00 11/28/19 06:31 Heparin SUB-Q 5,000 unit Q8HR CAR Administration Hydrophilic Ointment 1 applic 11/24/19 02:23 Vaseline Lip Therapy TP Q2HR PRN Dry Lips Ceftriaxone Sodium 2 gm in 100 mls @ 200 mls/hr 11/24/19 22:00 11/27/19 22:20 Rocephin/Ns 2 Gm/100 Ml IV 11/28/19 22:29 200 mls/hr Q24HR@2200 [facility] Administration Protocol Fentanyl Citrate 2,000 mcg in 100 mls @ 5.67 mls/hr 11/24/19 10:00 11/28/19 06:30 Fentanyl Drip Premix IV 3 mcg/kg/hr TITR CAR 17.01 mls/hr Administration Protocol 1 MCG/KG/HR Midazolam HCl 2 mg 11/24/19 02:23 11/24/19 02:25 Versed IV 2 mg Q10MIN PRN Administration Sedation Multi-Ingred Cream/Lotion/Oil/Oint 1 applic 11/24/19 02:23 Artificial Tears Ophth Oint OU Q4HR PRN Dry Eye(s) Ondansetron HCl 4 mg 11/24/19 05:31 Zofran IV Q8H PRN Nausea And Vomiting Sodium Chloride 10 ml 11/24/19 10:00 11/27/19 22:54 Sodium Chloride Flush Syringe 10 Ml IV 10 ml BID CAR Administration Sodium Chloride 10 ml 11/24/19 05:31 Sodium Chloride Flush Syringe 10 Ml IV PRN PRN LINE FLUSH Nutrition/Malnutrition Assess - Dietary Evaluation Nutrition/Malnutrition Findings: Nutrition Notes Start: 11/24/19 12:22 Freq: Status: Active Protocol: Document 11/26/19 11:18 HEATHER (Rec: 11/26/19 11:28 HEATHER [id number]) Co-Sign 11/26/19 11:18 LP Nutrition Notes Initial or Follow up Reassessment Current Diagnosis Coronary Artery Disease,Heart Failure,Respiratory Failure, Stroke,Hyperlipidemia Current Diet TF Vital HP 65ml/hr Labs/Tests Reviewed Pertinent Medications Lasix Height 6 ft 2 in Weight 113.39 kg [place] Body Weight (kg) 86.36 BMI 32.1 Weight Status Obese Subjective/Other Information Pt is running at TF goal Vital HP 65ml/hr and tolerating TF Percent of energy/protein needs met: 98%/70% Burn Absent Trauma Absent GI Symptoms None Usual Diet at Home unknown Skin Integrity/Comment intact Current % PO Negligible Minimum of two criteria No physical signs of malnutrition #1 Nutrition Diagnosis Inadequate oral intake Diagnosis Progress(for reassessment Continues documentation) Is patient on ventilator? Yes Is Patient Ambulatory and/or Out of Bed No REE-([facility]-confined to bed) 2403.072 Kcal/Kg value to use for calculation 14 Approximate Energy Requirements Using 1587 kcal/Kg Calculation Used for Recommendations Kcal/kg Additional Notes Protein needs 162g (up to 2g/ kg IBW) Fluid needs are 1.5L Nutrition Intervention Change Diet Order: Continue TF Nutrition Support: Vital HP at 65ml/hr Flush 50ml q4hr Kcal 1,560 Protein (gm) 114 Fluid (mL) 1,304 % RDI: 100 Goal #1 Pt will meet 75-100% of energy and protein needs Anticipated Discharge Needs: unable to determine at this time Follow-Up By: 12/01/19 Additional Comments Ck TF tolerance
--- NOTE | 2019-11-28 15:53 | Progress Note ---
Assessment and Plan Acute hypoxemic respiratory failure Bilateral pneumonia, community acquired. Person under investigation for COVID-19 infection. Acute congestive heart failure exacerbation. History of cerebrovascular accident. Acute chronic obstructive pulmonary disease exacerbation. Hypertension and hypertensive urgency at presentation. History of arthritis. Leukocytosis. Lactic acidosis. Oropharyngeal dysphagia - resume sedation with fentanyl re: agitation - may benefit from low dose seroquel (will add 100 mg qhs) - COVID isolation per facility protocol (test negative) - continue care as below otherwise; - continue diuresis while following electrolytes / I's & O's - continue to wean oxygen for O2 sat's > 92% - continue bronchodilators with pulmonary hygiene per RT - VAP bundle addressed (Aspiration precautions, HOB >40) - daily SAT's and SBT assessment as tolerated - continue to wean per pulmonary driven protocols - sedation target is RASS 0 to -1 - continue prn analgesia per CPOT score - follow clinically re: fever curves / trend WBC - Avoid delirium (no benzodiazepines if they can be avoided) - Maintain sleep-wake cycle - enteral nutrition at goal rate as tolerated - continue accucheck's with glycemic control per SSI for target blood glucose goal of 140-180 mg/dL whiole critically ill; Avoid hypoglycemia - continue VTE prophylaxis with Heparin - continue stress ulcer prophylaxis with Famotidine - continue mobility protocols for pressure ulcer prophylaxis - continue fall precautions - continue wound care management per RN / WCT - Supportive transfusions to keep HgB>7g/dL - CXR's and ABG's prn - Continue to monitor neurologic function - Continue chronic home medications - Continue all supportive care ........ re-evaluate in am & prn CONDITION: CRITICAL PROGNOSIS: GUARDED CODE STATUS: FULL CODE The high probability of a clinically significant, sudden or life threatening deterioration of the [Respiratory, cardiovascular & neurological] system(s) required my full and direct attention, intervention and personal management. The aggregate critical care time was [35] minutes without overlap. Time includes spent on [x] Data Review and interpretation [x] Patient assessment and monitoring of vital signs [x] Documentation [x] Medication orders and management Subjective Date of service: 11/28/19 Principal diagnosis: Ac hypoxemic resp failure; Pneumonia; PUI COVID-19; CHF; COPD; HTN Interval history: Patient is seen today for: Acute hypoxemic respiratory failure; Adan. Pneumonia (CAP); PUI COVID-19 infection; AE-CHF; AE-COPD; H/O CVA; HTN Seen and examined at bedside; 24 hour events reviewed; nursing and respiratory care staff consulted; no adverse overnight events reported to me; resting peacefully in bed; confused with more AMS earlier; CT brain done and negative; better now but agitated during sedation vacation; no emesis or overt aspiration; denies pain Objective Vital Signs - 12hr 11/28/19 11/28/19 11/28/19 04:00 04:10 04:20 Temperature Pulse Rate 97 H Respiratory 11 L Rate Blood Pressure 106/59 106/59 102/60 O2 Sat by Pulse 97 95 97 Oximetry 11/28/19 11/28/19 11/28/19 04:30 04:40 04:50 Temperature Pulse Rate 90 87 84 Respiratory 21 20 16 Rate Blood Pressure 118/72 111/70 102/60 O2 Sat by Pulse 93 90 93 Oximetry 11/28/19 11/28/19 11/28/19 05:00 05:10 05:20 Temperature Pulse Rate 104 H 79 83 Respiratory 22 21 20 Rate Blood Pressure 102/60 100/73 112/70 O2 Sat by Pulse 95 92 92 Oximetry 11/28/19 11/28/19 11/28/19 05:30 05:40 05:50 Temperature Pulse Rate 85 84 84 Respiratory 17 20 20 Rate Blood Pressure 107/68 107/68 107/68 O2 Sat by Pulse 97 92 98 Oximetry 11/28/19 11/28/19 11/28/19 06:00 08:00 08:36 Temperature 99.8 F H Pulse Rate 87 90 Respiratory 22 Rate Blood Pressure 107/68 97/64 O2 Sat by Pulse 98 Oximetry 11/28/19 11/28/19 11:10 12:00 Temperature 100.0 F H Pulse Rate 80 Respiratory Rate Blood Pressure 114/71 O2 Sat by Pulse 96 Oximetry Constitutional: no acute distress, other (elderly and obese male, normocephalic with mildly increased respiratory effort at rest on MVS) Eyes: non-icteric ENT: oropharynx moist, other (ETT 24 cm JASON) Neck: supple, no JVD Effort: normal Ascultation: Bilateral: diminished breath sounds, rhonchi Percussion: Bilateral: not dull Cardiovascular: regular rate and rhythm Gastrointestinal: normoactive bowel sounds, soft, non-tender, non-distended Integumentary: normal Extremities: no cyanosis, no edema, pulses normal, no ischemia or petechiae Neurologic: non-focal exam (grossly), pupils equal and round, motor strength normal and Psychiatric: mood appropriate, anxious CBC and BMP: 11/28/19 13:47 11/28/19 13:47 ABG, PT/INR, D-dimer: ABG ABG pH 7.44 (7.320-7.450) 11/28/19 05:00 POC ABG pCO2 44.2 mmHg (32.0-48.0) 11/28/19 05:00 ABG pCO2 49.0 mm Hg 11/27/19 04:11 POC ABG pO2 68.1 mmHg (83-108) L 11/28/19 05:00 ABG pO2 82.6 mm Hg (80.0-90.0) 11/27/19 04:11 POC ABG HCO3 29.6 11/28/19 05:00 ABG O2 Saturation 96.6 % (95.0-99.0) 11/27/19 04:11 PT/INR, D-dimer PT 12.7 Sec. (12.2-14.9) 11/25/19 05:11 INR 0.94 (0.87-1.13) 11/25/19 05:11 Abnormal lab findings: Abnormal Labs 11/24/19 11/24/19 11/24/19 02:53 02:53 03:45 WBC 14.3 H RDW 17.2 H Lymph % (Auto) [place] % (Auto) [place] # Seg Neutrophils % Seg Neutrophils # Seg Neutrophils # Man 8.3 H Monocytes # (Manual) 0.9 H ABG pH 7.313 L POC ABG pO2 ABG pO2 102.8 H ABG HCO3 ABG O2 Saturation ABG Base Excess -2.9 L ABG Hemoglobin ABG Oxyhemoglobin Oxyhemoglobin 93.9 L BUN Glucose 195 H POC Glucose Lactic Acid Lactate Dehydrogenase CK-MB (CK-2) 4.3 H NT-Pro-B Natriuret Pep 1181 H Albumin 11/24/19 11/24/19 11/24/19 04:53 04:53 10:37 WBC RDW Lymph % (Auto) [place] % (Auto) [place] # Seg Neutrophils % Seg Neutrophils # Seg Neutrophils # Man Monocytes # (Manual) ABG pH POC ABG pO2 ABG pO2 ABG HCO3 ABG O2 Saturation ABG Base Excess ABG Hemoglobin ABG Oxyhemoglobin Oxyhemoglobin BUN Glucose 162 H POC Glucose Lactic Acid 2.40 H* 2.50 H* Lactate Dehydrogenase 240 H CK-MB (CK-2) NT-Pro-B Natriuret Pep Albumin 11/24/19 11/24/19 11/24/19 12:21 14:50 19:54 WBC RDW Lymph % (Auto) [place] % (Auto) [place] # Seg Neutrophils % Seg Neutrophils # Seg Neutrophils # Man Monocytes # (Manual) ABG pH POC ABG pO2 ABG pO2 ABG HCO3 ABG O2 Saturation ABG Base Excess ABG Hemoglobin ABG Oxyhemoglobin Oxyhemoglobin BUN Glucose POC Glucose 145 H 143 H 124 H Lactic Acid Lactate Dehydrogenase CK-MB (CK-2) NT-Pro-B Natriuret Pep Albumin 11/25/19 11/25/19 11/25/19 00:18 03:18 05:11 WBC 13.7 H RDW 17.1 H Lymph % (Auto) 10.8 L [place] % (Auto) 8.7 H Garden # 1.2 H Seg Neutrophils % 80.2 H Seg Neutrophils # 11.0 H Seg Neutrophils # Man Monocytes # (Manual) ABG pH 7.333 L POC ABG pO2 ABG pO2 61.2 L ABG HCO3 ABG O2 Saturation 90.2 L ABG Base Excess ABG Hemoglobin 13.7 L ABG Oxyhemoglobin Oxyhemoglobin 88.2 L BUN Glucose POC Glucose 109 H Lactic Acid Lactate Dehydrogenase CK-MB (CK-2) NT-Pro-B Natriuret Pep Albumin 11/25/19 11/25/19 11/26/19 05:11 11:40 03:12 WBC RDW Lymph % (Auto) [place] % (Auto) [place] # Seg Neutrophils % Seg Neutrophils # Seg Neutrophils # Man Monocytes # (Manual) ABG pH POC ABG pO2 ABG pO2 155.1 H ABG HCO3 27.8 H ABG O2 Saturation ABG Base Excess ABG Hemoglobin 12.2 L ABG Oxyhemoglobin Oxyhemoglobin BUN 23 H Glucose 110 H POC Glucose 108 H Lactic Acid Lactate Dehydrogenase CK-MB (CK-2) NT-Pro-B Natriuret Pep Albumin 11/26/19 11/26/19 11/26/19 06:17 10:43 10:43 WBC 11.4 H RDW 17.1 H Lymph % (Auto) [place] % (Auto) [place] # Seg Neutrophils % Seg Neutrophils # Seg Neutrophils # Man Monocytes # (Manual) ABG pH POC ABG pO2 ABG pO2 ABG HCO3 ABG O2 Saturation ABG Base Excess ABG Hemoglobin ABG Oxyhemoglobin Oxyhemoglobin BUN 29 H Glucose POC Glucose 107 H Lactic Acid Lactate Dehydrogenase CK-MB (CK-2) NT-Pro-B Natriuret Pep Albumin 11/26/19 11/27/19 11/27/19 17:11 01:53 04:11 WBC RDW Lymph % (Auto) [place] % (Auto) [place] # Seg Neutrophils % Seg Neutrophils # Seg Neutrophils # Man Monocytes # (Manual) ABG pH POC ABG pO2 ABG pO2 ABG HCO3 29.2 H ABG O2 Saturation ABG Base Excess 3.4 H ABG Hemoglobin 13.3 L ABG Oxyhemoglobin Oxyhemoglobin 94.5 L BUN Glucose POC Glucose 113 H 108 H Lactic Acid Lactate Dehydrogenase CK-MB (CK-2) NT-Pro-B Natriuret Pep Albumin 11/27/19 11/28/19 11/28/19 05:27 05:00 05:25 WBC RDW Lymph % (Auto) [place] % (Auto) [place] # Seg Neutrophils % Seg Neutrophils # Seg Neutrophils # Man Monocytes # (Manual) ABG pH POC ABG pO2 68.1 L ABG pO2 ABG HCO3 ABG O2 Saturation ABG Base Excess ABG Hemoglobin ABG Oxyhemoglobin 91.2 L Oxyhemoglobin BUN Glucose POC Glucose 111 H 110 H Lactic Acid Lactate Dehydrogenase CK-MB (CK-2) NT-Pro-B Natriuret Pep Albumin 11/28/19 11/28/19 13:47 13:47 WBC 11.3 H RDW 16.1 H Lymph % (Auto) [place] % (Auto) 9.9 H Garden # 1.1 H Seg Neutrophils % 71.4 H Seg Neutrophils # 8.1 H Seg Neutrophils # Man Monocytes # (Manual) ABG pH POC ABG pO2 ABG pO2 ABG HCO3 ABG O2 Saturation ABG Base Excess ABG Hemoglobin ABG Oxyhemoglobin Oxyhemoglobin BUN 23 H Glucose 123 H POC Glucose Lactic Acid Lactate Dehydrogenase CK-MB (CK-2) NT-Pro-B Natriuret Pep Albumin 3.7 L Chest x-ray: image reviewed (RLL atelectasis; partial) Allied health notes reviewed: nursing
[2019-11-28] MEDS ORDERED: ZIPRASIDONE MESYLATE 20 MG VIAL IM ONE (18:00)
[2019-11-28] MEDS: AZITHROMYCIN 250 MG TAB PO SCH (22:11)
[2019-11-28] MEDS: QUEtiapine 100 MG TAB PO SCH (22:11)
[2019-11-28] MEDS: cefTRIAXone/NS 2 GM/100 ML 2 GM/100 ML BAG IV SCH (22:11)
[2019-11-29] MEDS: fentaNYL DRIP Premix 2,000 MCG/100 ML BAG IV SCH ×3 (02:16→21:29)
--- NOTE | 2019-11-29 03:37 | XRay Report ---
CHEST 1 VIEW INDICATION: follow up respiratory failure COMPARISON: 11/28/2019 FINDINGS: SUPPORT DEVICES: Endotracheal tubes in good position. Nasogastric tube has tip below diaphragm HEART / MEDIASTINUM: No significant abnormality. LUNGS / PLEURA: No significant pulmonary or pleural abnormality. No pneumothorax. ADDITIONAL FINDINGS: IMPRESSION: 1. Marked improvement in aeration throughout both lungs as compared to previous exam Signer Name: Jose Leblanc MD Signed: 11/29/2019 3:32 AM Workstation Name: [id number]
--- NOTE | 2019-11-29 03:38 | XRay Report ---
ABDOMEN : VIEW(S) INDICATION: Ng placement COMPARISON: None available. FINDINGS: Nasogastric tube has tip in the stomach Bowel gas pattern: Within normal limits. No dilated loops of large or small bowel. Free air: None. Additional Findings: None. Skeletal structures: No acute abnormality. IMPRESSION: 1. No acute findings. Signer Name: Jose Leblanc MD Signed: 11/29/2019 3:33 AM Workstation Name: [id number]
[2019-11-29 04:42] LABS: ABG Base Excess 3.6 mmol/L (-2.0-3.0); ABG HCO3 28.3 mmol/L (20.0-26.0); ABG Methemoglobin 0.6 % (0.0-1.5); ABG Oxygen Saturation 93.9 % (95.0-99.0); ABG PCO2 43.4 mm Hg; ABG PH 7.433 pH Units (7.350-7.450); ABG PO2 65.7 mm Hg (80.0-90.0)
[2019-11-29] MEDS: HEPARIN 5,000 UNIT/1 ML VIAL SUB-Q SCH ×3 (05:06→21:30)
[2019-11-29] MEDS: FUROSEMIDE 20 MG/2 ML INJ IV SCH ×2 (05:10→17:57)
--- NOTE | 2019-11-29 07:39 | Progress Note ---
Assessment and Plan Assessment and plan: Patient is a 64-year-old male with known history of hypertension, COPD, history of coronary artery disease, CHF with ejection fraction of 20 to 25% in August 2018 presenting to the emergency room today via EMS complaining of shortness of breath. Patient was found to be hypoxic and in respiratory distress. Patient was placed on CPAP in route to the hospital. Oxygen saturation was said to be 88%. Started on Solu-Medrol, Lasix and magnesium in ED, patient was also found to be lethargic with an oxygen saturation of about 91% on CPAP. He was subsequently intubated. Work-up in the emergency room including chest x-ray reveals bilateral pneumonia. He had an elevated white count of 14 and also had an elevated BNP. Patient to be admitted to the ICU and placed on empiric IV antibiotics for pneumonia. He will also be tested for COVID-19 and placed on isolation precautions. Most of the history was gotten from the ER physician as patient is currently intubated. 11/25: Leukocytosis improving. Continue current management anticipate extubation possible today. 11/26. Still intubated. Failed SBT yesterday. Repeat COVID-19 test is negative. 11/27. CT head ordered for possible neuro status change is negative. More responsive as the day progressed as per RN. Chest xray today shows interval improvement. He is still on antibiotics - will complete regimen today. 11/28: Considering difficult extubation and severe cardiomyopathy, will obtain cardiology consult. Aspiration precautions, tube feeds held, continue antibiotics. Diagnosis Acute hypoxemic respiratory failure Bilateral pneumonia, community acquired, - COIVD 19 NEGATIVE Person under investigation for COVID-19 infection. Acute congestive heart failure exacerbation Presumed systolic History of cerebrovascular accident. Tobacco use disorder Acute chronic obstructive pulmonary disease exacerbation. Hypertension and hypertensive urgency at presentation. History of arthritis. Leukocytosis. Lactic acidosis. Oropharyngeal dysphagia S/P Knee surgery History of peptic Ulcer Surgery Plan Continue supportive care Wean from vent as tolerated Continue ceftriaxone 2 gm IV qday and azithromycin 500 mg PO qday per ID Steroids Repeat Covid 19 test negative Continue diuresis Aspiration precautions DVT/GI prophy Discussed with family The high probability of a clinically significant, sudden or life threatening deterioration of the [Respiratory, cardiovascular & neurological] system(s) required my full and direct attention, intervention and personal management. The aggregate critical care time was [35] minutes without overlap. Time includes spent on [x] Data Review and interpretation [x] Patient assessment and monitoring of vital signs [x] Documentation [x] Medication orders and management History Interval history: Patient seen and examined, no new changes, per nursing staff aspirated yesterday. Hospitalist Physical - Physical exam Narrative exam: General appearance: Present: well-nourished, other (Intubated), opens eyes to names and follows command - EENT Eyes: Present: PERRL, EOM intact. Absent: scleral icterus ENT: clear oral mucosa, dentition normal - Neck Neck: Present: supple, normal ROM - Respiratory Respiratory effort: normal, mechanical ventilation Respiratory: bilateral: rales - Cardiovascular Rhythm: regular Heart Sounds: Present: S1 & S2. Absent: gallop, systolic murmur, diastolic murmur, rub - Extremities Extremities: no ischemia, pulses intact, pulses symmetrical, No edema, Full ROM Peripheral Pulses: within normal limits - Abdominal General gastrointestinal: Present: soft, non-tender, non-distended, normal bowel sounds. Absent: mass - Integumentary Integumentary: Present: clear, warm, dry. Absent: rash - Musculoskeletal Musculoskeletal: strength equal bilaterally - Psychiatric Psychiatric: cooperative - Constitutional Vitals: Temp Pulse Resp BP Pulse Ox 98.9 F 82 14 128/79 85 11/29/19 03:42 11/29/19 06:20 11/29/19 06:20 11/29/19 06:20 11/29/19 06:20 General appearance: Present: no acute distress, well-nourished, other (Inntubated) HEART Score - HEART Score Troponin: Troponin T < 0.010 ng/mL (0.00-0.029) 11/24/19 02:53 Results - Labs CBC & Chem 7: 11/28/19 13:47 11/28/19 13:47 Labs: Laboratory Last Values WBC 11.3 K/mm3 (4.5-11.0) H 11/28/19 13:47 RBC 4.67 M/mm3 (3.65-5.03) 11/28/19 13:47 Hgb 13.7 gm/dl (11.8-15.2) 11/28/19 13:47 Hct 42.5 % (35.5-45.6) 11/28/19 13:47 MCV 91 fl (84-94) 11/28/19 13:47 MCH 29 pg (28-32) 11/28/19 13:47 MCHC 32 % (32-34) 11/28/19 13:47 RDW 16.1 % (13.2-15.2) H 11/28/19 13:47 Plt Count 168 K/mm3 (140-440) 11/28/19 13:47 Lymph % (Auto) 16.6 % (13.4-35.0) 11/28/19 13:47 [place] % (Auto) 9.9 % (0.0-7.3) H 11/28/19 13:47 Eos % (Auto) 1.6 % (0.0-4.3) 11/28/19 13:47 Baso % (Auto) 0.5 % (0.0-1.8) 11/28/19 13:47 Lymph # 1.9 K/mm3 (1.2-5.4) 11/28/19 13:47 [place] # 1.1 K/mm3 (0.0-0.8) H 11/28/19 13:47 Eos # 0.2 K/mm3 (0.0-0.4) 11/28/19 13:47 Baso # 0.1 K/mm3 (0.0-0.1) 11/28/19 13:47 Add Manual Diff Complete 11/24/19 02:53 Total Counted 100 11/24/19 02:53 Seg Neutrophils % 71.4 % (40.0-70.0) H 11/28/19 13:47 Seg Neuts % (Manual) 58.0 % (40.0-70.0) 11/24/19 02:53 Band Neutrophils % 0 % 11/24/19 02:53 Lymphocytes % (Manual) 33.0 % (13.4-35.0) 11/24/19 02:53 Reactive Lymphs % (Man) 0 % 11/24/19 02:53 Monocytes % (Manual) 6.0 % (0.0-7.3) 11/24/19 02:53 Eosinophils % (Manual) 3.0 % (0.0-4.3) 11/24/19 02:53 Basophils % (Manual) 0 % (0.0-1.8) 11/24/19 02:53 Metamyelocytes % 0 % 11/24/19 02:53 Myelocytes % 0 % 11/24/19 02:53 Promyelocytes % 0 % 11/24/19 02:53 Blast Cells % 0 % 11/24/19 02:53 Nucleated RBC % Not Reportable 11/24/19 02:53 Seg Neutrophils # 8.1 K/mm3 (1.8-7.7) H 11/28/19 13:47 Seg Neutrophils # Man 8.3 K/mm3 (1.8-7.7) H 11/24/19 02:53 Band Neutrophils # 0.0 K/mm3 11/24/19 02:53 Lymphocytes # (Manual) 4.7 K/mm3 (1.2-5.4) 11/24/19 02:53 Abs React Lymphs (Man) 0.0 K/mm3 11/24/19 02:53 Monocytes # (Manual) 0.9 K/mm3 (0.0-0.8) H 11/24/19 02:53 Eosinophils # (Manual) 0.4 K/mm3 (0.0-0.4) 11/24/19 02:53 Basophils # (Manual) 0.0 K/mm3 (0.0-0.1) 11/24/19 02:53 Metamyelocytes # 0.0 K/mm3 11/24/19 02:53 Myelocytes # 0.0 K/mm3 11/24/19 02:53 Promyelocytes # 0.0 K/mm3 11/24/19 02:53 Blast Cells # 0.0 K/mm3 11/24/19 02:53 WBC Morphology Not Reportable 11/24/19 02:53 Hypersegmented Neuts Not Reportable 11/24/19 02:53 Hyposegmented Neuts Not Reportable 11/24/19 02:53 Hypogranular Neuts Not Reportable 11/24/19 02:53 Smudge Cells Not Reportable 11/24/19 02:53 Toxic Granulation Not Reportable 11/24/19 02:53 Toxic Vacuolation Not Reportable 11/24/19 02:53 Dohle Bodies Not Reportable 11/24/19 02:53 Pelger-Huet Anomaly Not Reportable 11/24/19 02:53 Hector Rods Not Reportable 11/24/19 02:53 Platelet Estimate Consistent w auto 11/24/19 02:53 Clumped Platelets Not Reportable 11/24/19 02:53 Plt Clumps, EDTA Not Reportable 11/24/19 02:53 Large Platelets Not Reportable 11/24/19 02:53 Giant Platelets Not Reportable 11/24/19 02:53 Platelet Satelliting Not Reportable 11/24/19 02:53 Plt Morphology Comment Not Reportable 11/24/19 02:53 RBC Morphology Not Reportable 11/24/19 02:53 Dimorphic RBCs Not Reportable 11/24/19 02:53 Polychromasia Not Reportable 11/24/19 02:53 Hypochromasia Not Reportable 11/24/19 02:53 Poikilocytosis Not Reportable 11/24/19 02:53 Anisocytosis Few 11/24/19 02:53 Microcytosis Not Reportable 11/24/19 02:53 Macrocytosis Not Reportable 11/24/19 02:53 Spherocytes Not Reportable 11/24/19 02:53 Pappenheimer Bodies Not Reportable 11/24/19 02:53 Sickle Cells Not Reportable 11/24/19 02:53 Target Cells Not Reportable 11/24/19 02:53 Tear Drop Cells Not Reportable 11/24/19 02:53 Ovalocytes Not Reportable 11/24/19 02:53 Helmet Cells Not Reportable 11/24/19 02:53 [place] Bodies Not Reportable 11/24/19 02:53 [place] Rings Not Reportable 11/24/19 02:53 Oc Cells Not Reportable 11/24/19 02:53 Bite Cells Not Reportable 11/24/19 02:53 Crenated Cell Not Reportable 11/24/19 02:53 Elliptocytes Not Reportable 11/24/19 02:53 Acanthocytes (Spur) Not Reportable 11/24/19 02:53 Rouleaux Not Reportable 11/24/19 02:53 Hemoglobin C Crystals Not Reportable 11/24/19 02:53 Schistocytes Not Reportable 11/24/19 02:53 Malaria parasites Not Reportable 11/24/19 02:53 Clifford Bodies Not Reportable 11/24/19 02:53 Hem Pathologist Commnt No 11/24/19 02:53 PT 12.7 Sec. (12.2-14.9) 11/25/19 05:11 INR 0.94 (0.87-1.13) 11/25/19 05:11 ABG pH 7.433 pH Units (7.350-7.450) 11/29/19 03:55 POC ABG pCO2 44.2 mmHg (32.0-48.0) 11/28/19 05:00 ABG pCO2 43.4 mm Hg 11/29/19 03:55 POC ABG pO2 68.1 mmHg (83-108) L 11/28/19 05:00 ABG pO2 65.7 mm Hg (80.0-90.0) L 11/29/19 03:55 POC ABG HCO3 29.6 11/28/19 05:00 ABG HCO3 28.3 mmol/L (20.0-26.0) H 11/29/19 03:55 ABG O2 Saturation 93.9 % (95.0-99.0) L 11/29/19 03:55 ABG O2 Content 17.2 (0.0-44) 11/29/19 03:55 POC ABG Base Excess 4.8 11/28/19 05:00 ABG Base Excess 3.6 mmol/L (-2.0-3.0) H 11/29/19 03:55 ABG Hemoglobin 13.3 gm/dl (14.0-18.0) L 11/29/19 03:55 ABG Oxyhemoglobin 91.2 (94-98) L 11/28/19 05:00 ABG Carboxyhemoglobin 2.0 % (0.0-5.0) 11/29/19 03:55 ABG Methemoglobin 0.6 % (0.0-1.5) 11/29/19 03:55 Oxyhemoglobin 91.5 % (95.0-99.0) L 11/29/19 03:55 Carboxyhemoglobin 1.3 (0.5-1.5) 11/28/19 05:00 FiO2 30 % 11/29/19 03:55 Sodium 143 mmol/L (137-145) 11/28/19 13:47 Potassium 4.1 mmol/L (3.6-5.0) 11/28/19 13:47 Chloride 101.7 mmol/L (98-107) 11/28/19 13:47 Carbon Dioxide 26 mmol/L (22-30) 11/28/19 13:47 Anion Gap 19 mmol/L 11/28/19 13:47 BUN 23 mg/dL (9-20) H 11/28/19 13:47 Creatinine 0.9 mg/dL (0.8-1.3) 11/28/19 13:47 Estimated GFR > 60 ml/min 11/28/19 13:47 BUN/Creatinine Ratio 26 % 11/28/19 13:47 Glucose 123 mg/dL (75-100) H 11/28/19 13:47 POC Glucose 93 (70-105) 11/29/19 05:56 Lactic Acid 2.50 mmol/L (0.7-2.0) H* 11/24/19 10:37 Calcium 10.0 mg/dL (8.4-10.2) 11/28/19 13:47 Ferritin 84.4 ng/mL (30.0-300.0) 11/24/19 04:53 Total Bilirubin 0.80 mg/dL (0.1-1.2) 11/28/19 13:47 AST 21 units/L (5-40) 11/28/19 13:47 ALT 42 units/L (7-56) 11/28/19 13:47 Alkaline Phosphatase 57 units/L (35-129) 11/28/19 13:47 Lactate Dehydrogenase 240 units/L (91-180) H 11/24/19 04:53 Total Creatine Kinase 141 units/L (55-170) 11/24/19 02:53 CK-MB (CK-2) 4.3 ng/mL (0.0-4.0) H 11/24/19 02:53 CK-MB (CK-2) Rel Index 3.0 (0-4) 11/24/19 02:53 Troponin T < 0.010 ng/mL (0.00-0.029) 11/24/19 02:53 C-Reactive Protein 0.10 mg/dL (0.00-1.30) 11/24/19 04:53 NT-Pro-B Natriuret Pep 1181 pg/mL (0-900) H 11/24/19 02:53 Total Protein 6.9 g/dL (6.3-8.2) 11/28/19 13:47 Albumin 3.7 g/dL (3.9-5) L 11/28/19 13:47 Albumin/Globulin Ratio 1.2 % 11/28/19 13:47 Procalcitonin 0.12 ng/mL (<0.15) 11/25/19 05:11 Coronavirus (PCR) Negative (Negative) 11/26/19 08:26 Microbiology: Microbiology 11/24/19 04:53 Peripheral/Venous Blood Culture - Final NO GROWTH AFTER 5 DAYS 11/24/19 05:27 Peripheral/Venous Blood Culture - Final NO GROWTH AFTER 5 DAYS Hoffman/IV: Voiding Method Indwelling Catheter IV Catheter Type [Left Wrist] INT / Saline Lock IV Catheter Type [Right INT / Saline Lock Antecubital] Active Medications - Current Medications Current Medications: Generic Name Dose Route Start Last Admin Trade Name Freq PRN Reason Stop Dose Admin Acetaminophen 650 mg 11/25/19 17:27 11/25/19 18:26 Tylenol FEEDTUBE 650 mg Q6H PRN Administration Pain, Mild (1-3) Famotidine 20 mg 11/25/19 10:00 11/28/19 22:08 Pepcid PO Not Given BID CAR Fentanyl 50 mcg 11/24/19 09:55 Sublimaze IV Q10MIN PRN ANALGESIA Furosemide 20 mg 11/24/19 18:00 11/29/19 05:10 Lasix IV 20 mg 0600,1800 CAR Administration Heparin Sodium (Porcine) 5,000 unit 11/24/19 06:00 11/29/19 05:06 Heparin SUB-Q 5,000 unit Q8HR CAR Administration Hydrophilic Ointment 1 applic 11/24/19 02:23 Vaseline Lip Therapy TP Q2HR PRN Dry Lips Fentanyl Citrate 2,000 mcg in 100 mls @ 5.67 mls/hr 11/24/19 10:00 11/29/19 02:16 Fentanyl Drip Premix IV 2 mcg/kg/hr TITR CAR 11.34 mls/hr Administration Protocol 1 MCG/KG/HR Propofol 1,000 mg in 100 mls @ 3.402 mls/hr 11/28/19 17:25 Diprivan 10 Mg/Ml IV TITR CAR Protocol 5 MCG/KG/MIN Midazolam HCl 2 mg 11/24/19 02:23 11/24/19 02:25 Versed IV 2 mg Q10MIN PRN Administration Sedation Multi-Ingred Cream/Lotion/Oil/Oint 1 applic 11/24/19 02:23 Artificial Tears Ophth Oint OU Q4HR PRN Dry Eye(s) Ondansetron HCl 4 mg 11/24/19 05:31 Zofran IV Q8H PRN Nausea And Vomiting Quetiapine Fumarate 100 mg 11/28/19 22:00 11/28/19 22:11 Seroquel PO Not Given QHS CAR Sodium Chloride 10 ml 11/24/19 10:00 11/28/19 22:11 Sodium Chloride Flush Syringe 10 Ml IV 10 ml BID CAR Administration Sodium Chloride 10 ml 11/24/19 05:31 Sodium Chloride Flush Syringe 10 Ml IV PRN PRN LINE FLUSH Nutrition/Malnutrition Assess - Dietary Evaluation Nutrition/Malnutrition Findings: Nutrition Notes Start: 11/24/19 12:22 Freq: Status: Active Protocol: Document 11/26/19 11:18 HEATHER (Rec: 11/26/19 11:28 HEATHER [id number]) Co-Sign 11/26/19 11:18 LP Nutrition Notes Initial or Follow up Reassessment Current Diagnosis Coronary Artery Disease,Heart Failure,Respiratory Failure, Stroke,Hyperlipidemia Current Diet TF Vital HP 65ml/hr Labs/Tests Reviewed Pertinent Medications Lasix Height 6 ft 2 in Weight 113.39 kg [place] Body Weight (kg) 86.36 BMI 32.1 Weight Status Obese Subjective/Other Information Pt is running at TF goal Vital HP 65ml/hr and tolerating TF Percent of energy/protein needs met: 98%/70% Burn Absent Trauma Absent GI Symptoms None Usual Diet at Home unknown Skin Integrity/Comment intact Current % PO Negligible Minimum of two criteria No physical signs of malnutrition #1 Nutrition Diagnosis Inadequate oral intake Diagnosis Progress(for reassessment Continues documentation) Is patient on ventilator? Yes Is Patient Ambulatory and/or Out of Bed No REE-([facility]-confined to bed) 2403.072 Kcal/Kg value to use for calculation 14 Approximate Energy Requirements Using 1587 kcal/Kg Calculation Used for Recommendations Kcal/kg Additional Notes Protein needs 162g (up to 2g/ kg IBW) Fluid needs are 1.5L Nutrition Intervention Change Diet Order: Continue TF Nutrition Support: Vital HP at 65ml/hr Flush 50ml q4hr Kcal 1,560 Protein (gm) 114 Fluid (mL) 1,304 % RDI: 100 Goal #1 Pt will meet 75-100% of energy and protein needs Anticipated Discharge Needs: unable to determine at this time Follow-Up By: 12/01/19 Additional Comments Ck TF tolerance
[2019-11-29] MEDS: FAMOTIDINE 20 MG TAB PO SCH ×2 (09:54→21:30)
--- NOTE | 2019-11-29 11:15 | Progress Note ---
Assessment and Plan Acute hypoxemic respiratory failure Bilateral pneumonia, community acquired. Acute congestive heart failure exacerbation. History of cerebrovascular accident. Acute chronic obstructive pulmonary disease exacerbation. Hypertension and hypertensive urgency at presentation. History of arthritis. Oropharyngeal dysphagia Fevers with mild leukocytosis- monitor and trend for now. Radiographically improving infiltrates NGT placement confirmed, resume enteric nutritional support Currently on AC-VC 20/500/6/30% ABG 7.4/43/65/28 Was started on Seroquel last night, monitor response and monitor QTc - continue diuresis, while monitoring renal function, hemodynamics and electrolyte profile - continue to wean oxygen for O2 sats > 90% - continue bronchodilators with pulmonary hygiene per RT - VAP bundle addressed (Aspiration precautions, HOB >40) - continue to wean per pulmonary driven protocols - continue prn analgesia per CPOT score - follow clinically re: fever curves / trend WBC - Avoid delirium (no benzodiazepines if they can be avoided) - Maintain sleep-wake cycle - Enteral nutrition at goal rate as tolerated - continue accuchecks with glycemic control per SSI for target blood glucose goal of 140-180 mg/dL while critically ill; Avoid hypoglycemia - continue VTE prophylaxis with Heparin - continue stress ulcer prophylaxis with Famotidine - continue mobility protocols for pressure ulcer prophylaxis - continue fall precautions - continue wound care management per RN / WCT - Supportive transfusions as indicated to keep HgB>7g/dL - CXRs and ABGs in am - Continue to monitor neurologic function - Continue chronic home medications as clinically indicated - Continue all supportive care CONDITION: CRITICAL PROGNOSIS: GUARDED CODE STATUS: FULL CODE The high probability of a clinically significant, sudden or life threatening deterioration of the [Respiratory, cardiovascular & neurological] system(s) required my full and direct attention, intervention and personal management. The aggregate critical care time was [33] minutes without overlap. Time includes spent on [x] Data Review and interpretation [x] Patient assessment and monitoring of vital signs [x] Documentation [x] Medication orders and management Subjective Date of service: 11/29/19 Principal diagnosis: Ac hypoxemic resp failure; Pneumonia; PUI COVID-19; CHF; COPD; HTN Interval history: Patient is seen today for: Acute hypoxemic respiratory failure; Adan. Pneumonia (CAP); PUI COVID-19 infection; AE-CHF; AE-COPD; H/O CVA; HTN Seen and examined at bedside; 24 hour events reviewed; nursing and respiratory care staff consulted; no adverse overnight events reported to me; resting peacefully in bed; awake and alert, ETT in place. No asynchrony, Dislodged OGT yesterday with possible aspiration. NGT has been replaced, awaiting confirmation to placement to initiate tube feedings CT head negative High grade temperature this morning at 101.2 SBT not attempted this morning, was agitated per RT and RN Objective Vital Signs - 12hr 11/28/19 11/28/19 11/28/19 23:20 23:30 23:40 Temperature Pulse Rate 83 83 85 Pulse Rate [ From Monitor] Respiratory 20 23 20 Rate Blood Pressure 118/75 112/71 112/71 O2 Sat by Pulse 98 99 100 Oximetry 11/28/19 11/28/19 11/28/19 23:50 23:53 23:55 Temperature 99.3 F Pulse Rate 79 Pulse Rate [ 85 From Monitor] Respiratory 20 20 Rate Blood Pressure 118/75 O2 Sat by Pulse 94 91 Oximetry 11/29/19 11/29/19 11/29/19 00:00 00:10 00:20 Temperature Pulse Rate 87 81 83 Pulse Rate [ From Monitor] Respiratory 20 20 18 Rate Blood Pressure 117/69 117/69 124/76 O2 Sat by Pulse 96 94 97 Oximetry 11/29/19 11/29/19 11/29/19 00:30 00:40 00:50 Temperature Pulse Rate 87 86 91 H Pulse Rate [ From Monitor] Respiratory 20 20 19 Rate Blood Pressure 124/76 120/77 114/67 O2 Sat by Pulse 98 96 96 Oximetry 11/29/19 11/29/19 11/29/19 01:00 01:10 01:20 Temperature Pulse Rate 83 96 H 91 H Pulse Rate [ From Monitor] Respiratory 20 18 16 Rate Blood Pressure 124/67 124/67 124/67 O2 Sat by Pulse 95 97 98 Oximetry 11/29/19 11/29/19 11/29/19 01:30 01:40 01:50 Temperature Pulse Rate 81 84 83 Pulse Rate [ From Monitor] Respiratory 21 20 20 Rate Blood Pressure 121/68 121/68 123/80 O2 Sat by Pulse 95 94 94 Oximetry 11/29/19 11/29/19 11/29/19 02:00 02:10 02:20 Temperature Pulse Rate 83 88 90 Pulse Rate [ From Monitor] Respiratory 20 16 15 Rate Blood Pressure 120/71 120/71 120/71 O2 Sat by Pulse 94 95 93 Oximetry 11/29/19 11/29/19 11/29/19 02:30 02:40 02:50 Temperature Pulse Rate 85 83 84 Pulse Rate [ From Monitor] Respiratory 20 22 14 Rate Blood Pressure 114/76 114/76 123/75 O2 Sat by Pulse 95 96 94 Oximetry 11/29/19 11/29/19 11/29/19 03:00 03:10 03:15 Temperature Pulse Rate 85 87 Pulse Rate [ 83 From Monitor] Respiratory 21 19 20 Rate Blood Pressure 129/80 129/80 O2 Sat by Pulse 95 91 Oximetry 11/29/19 11/29/19 11/29/19 03:20 03:30 03:40 Temperature Pulse Rate 81 81 85 Pulse Rate [ From Monitor] Respiratory 18 20 19 Rate Blood Pressure 124/76 121/70 121/70 O2 Sat by Pulse 93 93 90 Oximetry 11/29/19 11/29/19 11/29/19 03:42 03:50 04:00 Temperature 98.9 F Pulse Rate 81 79 Pulse Rate [ From Monitor] Respiratory 16 19 Rate Blood Pressure 120/65 116/71 O2 Sat by Pulse 91 93 Oximetry 11/29/19 11/29/19 11/29/19 04:10 04:20 04:30 Temperature Pulse Rate 85 81 77 Pulse Rate [ From Monitor] Respiratory 19 20 20 Rate Blood Pressure 116/71 111/72 117/77 O2 Sat by Pulse 94 96 95 Oximetry 11/29/19 11/29/19 11/29/19 04:40 04:50 05:00 Temperature Pulse Rate 79 78 81 Pulse Rate [ From Monitor] Respiratory 20 20 19 Rate Blood Pressure 117/77 127/70 135/73 O2 Sat by Pulse 93 92 93 Oximetry 11/29/19 11/29/19 11/29/19 05:10 05:20 05:30 Temperature Pulse Rate 81 81 80 Pulse Rate [ From Monitor] Respiratory 14 19 20 Rate Blood Pressure 135/73 128/78 120/66 O2 Sat by Pulse 92 93 94 Oximetry 11/29/19 11/29/19 11/29/19 05:40 05:50 06:00 Temperature Pulse Rate 82 83 91 H Pulse Rate [ From Monitor] Respiratory 19 23 17 Rate Blood Pressure 120/66 116/64 139/90 O2 Sat by Pulse 95 89 88 Oximetry 11/29/19 11/29/19 11/29/19 06:10 06:20 06:30 Temperature Pulse Rate 81 82 93 H Pulse Rate [ From Monitor] Respiratory 14 14 20 Rate Blood Pressure 139/90 128/79 137/83 O2 Sat by Pulse 84 85 86 Oximetry 11/29/19 11/29/19 11/29/19 06:40 06:50 07:00 Temperature Pulse Rate 90 85 81 Pulse Rate [ From Monitor] Respiratory 22 19 20 Rate Blood Pressure 137/83 125/79 119/60 O2 Sat by Pulse 91 93 95 Oximetry 11/29/19 11/29/19 11/29/19 07:10 07:20 07:30 Temperature Pulse Rate 82 83 81 Pulse Rate [ From Monitor] Respiratory 14 19 18 Rate Blood Pressure 119/60 122/66 129/76 O2 Sat by Pulse 93 92 95 Oximetry 11/29/19 11/29/19 11/29/19 07:32 07:40 07:50 Temperature Pulse Rate 80 82 82 Pulse Rate [ From Monitor] Respiratory 20 20 Rate Blood Pressure 129/76 129/76 109/76 O2 Sat by Pulse 94 93 93 Oximetry 11/29/19 11/29/19 11/29/19 08:00 08:10 08:20 Temperature 101.2 F H Pulse Rate 82 88 84 Pulse Rate [ 82 From Monitor] Respiratory 16 16 19 Rate Blood Pressure 109/76 116/72 121/61 O2 Sat by Pulse 94 93 93 Oximetry 11/29/19 11/29/19 11/29/19 08:30 08:40 08:50 Temperature Pulse Rate 79 81 77 Pulse Rate [ From Monitor] Respiratory 20 20 17 Rate Blood Pressure 129/73 129/73 117/71 O2 Sat by Pulse 96 95 93 Oximetry 11/29/19 11/29/19 11/29/19 09:00 09:10 09:20 Temperature Pulse Rate 83 82 83 Pulse Rate [ From Monitor] Respiratory 21 20 20 Rate Blood Pressure 115/67 115/67 113/69 O2 Sat by Pulse 87 93 92 Oximetry 11/29/19 11/29/19 11/29/19 09:30 09:40 09:50 Temperature Pulse Rate 77 79 77 Pulse Rate [ From Monitor] Respiratory 18 20 20 Rate Blood Pressure 111/59 111/59 111/69 O2 Sat by Pulse 92 92 95 Oximetry 09/09/1111/29/19 11/29/19 10:00 10:11 10:21 Temperature Pulse Rate 78 83 83 Pulse Rate [ From Monitor] Respiratory 19 18 20 Rate Blood Pressure 112/70 111/69 119/67 O2 Sat by Pulse 93 89 93 Oximetry Constitutional: no acute distress, other (elderly and obese male, normocephalic with normal respiratory effort at rest on MVS) Eyes: non-icteric ENT: oropharynx moist, other (ETT 24 cm JASON) Neck: supple, no JVD Effort: normal Ascultation: Bilateral: clear, diminished breath sounds, rhonchi Percussion: Bilateral: not dull Cardiovascular: regular rate and rhythm Gastrointestinal: normoactive bowel sounds, soft, non-tender, non-distended Integumentary: normal Extremities: no cyanosis, no edema, pulses normal, no ischemia or petechiae Neurologic: non-focal exam (grossly), pupils equal and round, motor strength normal and Psychiatric: mood appropriate, affect normal CBC and BMP: 11/28/19 13:47 11/28/19 13:47 ABG, PT/INR, D-dimer: ABG ABG pH 7.433 pH Units (7.350-7.450) 11/29/19 03:55 POC ABG pCO2 44.2 mmHg (32.0-48.0) 11/28/19 05:00 ABG pCO2 43.4 mm Hg 11/29/19 03:55 POC ABG pO2 68.1 mmHg (83-108) L 11/28/19 05:00 ABG pO2 65.7 mm Hg (80.0-90.0) L 11/29/19 03:55 POC ABG HCO3 29.6 11/28/19 05:00 ABG O2 Saturation 93.9 % (95.0-99.0) L 11/29/19 03:55 PT/INR, D-dimer PT 12.7 Sec. (12.2-14.9) 11/25/19 05:11 INR 0.94 (0.87-1.13) 11/25/19 05:11 Abnormal lab findings: Abnormal Labs 11/24/19 11/24/19 11/24/19 02:53 02:53 03:45 WBC 14.3 H RDW 17.2 H Lymph % (Auto) Ocean % (Auto) Ocean # Seg Neutrophils % Seg Neutrophils # Seg Neutrophils # Man 8.3 H Monocytes # (Manual) 0.9 H ABG pH 7.313 L POC ABG pO2 ABG pO2 102.8 H ABG HCO3 ABG O2 Saturation ABG Base Excess -2.9 L ABG Hemoglobin ABG Oxyhemoglobin Oxyhemoglobin 93.9 L BUN Glucose 195 H POC Glucose Lactic Acid Lactate Dehydrogenase CK-MB (CK-2) 4.3 H NT-Pro-B Natriuret Pep 1181 H Albumin 11/24/19 11/24/19 11/24/19 04:53 04:53 10:37 WBC RDW Lymph % (Auto) Ocean % (Auto) Ocean # Seg Neutrophils % Seg Neutrophils # Seg Neutrophils # Man Monocytes # (Manual) ABG pH POC ABG pO2 ABG pO2 ABG HCO3 ABG O2 Saturation ABG Base Excess ABG Hemoglobin ABG Oxyhemoglobin Oxyhemoglobin BUN Glucose 162 H POC Glucose Lactic Acid 2.40 H* 2.50 H* Lactate Dehydrogenase 240 H CK-MB (CK-2) NT-Pro-B Natriuret Pep Albumin 11/24/19 11/24/19 11/24/19 12:21 14:50 19:54 WBC RDW Lymph % (Auto) Ocean % (Auto) Ocean # Seg Neutrophils % Seg Neutrophils # Seg Neutrophils # Man Monocytes # (Manual) ABG pH POC ABG pO2 ABG pO2 ABG HCO3 ABG O2 Saturation ABG Base Excess ABG Hemoglobin ABG Oxyhemoglobin Oxyhemoglobin BUN Glucose POC Glucose 145 H 143 H 124 H Lactic Acid Lactate Dehydrogenase CK-MB (CK-2) NT-Pro-B Natriuret Pep Albumin 11/25/19 11/25/19 11/25/19 00:18 03:18 05:11 WBC 13.7 H RDW 17.1 H Lymph % (Auto) 10.8 L Ocean % (Auto) 8.7 H Ocean # 1.2 H Seg Neutrophils % 80.2 H Seg Neutrophils # 11.0 H Seg Neutrophils # Man Monocytes # (Manual) ABG pH 7.333 L POC ABG pO2 ABG pO2 61.2 L ABG HCO3 ABG O2 Saturation 90.2 L ABG Base Excess ABG Hemoglobin 13.7 L ABG Oxyhemoglobin Oxyhemoglobin 88.2 L BUN Glucose POC Glucose 109 H Lactic Acid Lactate Dehydrogenase CK-MB (CK-2) NT-Pro-B Natriuret Pep Albumin 11/25/19 11/25/19 11/26/19 05:11 11:40 03:12 WBC RDW Lymph % (Auto) Ocean % (Auto) Ocean # Seg Neutrophils % Seg Neutrophils # Seg Neutrophils # Man Monocytes # (Manual) ABG pH POC ABG pO2 ABG pO2 155.1 H ABG HCO3 27.8 H ABG O2 Saturation ABG Base Excess ABG Hemoglobin 12.2 L ABG Oxyhemoglobin Oxyhemoglobin BUN 23 H Glucose 110 H POC Glucose 108 H Lactic Acid Lactate Dehydrogenase CK-MB (CK-2) NT-Pro-B Natriuret Pep Albumin 11/26/19 11/26/19 11/26/19 06:17 10:43 10:43 WBC 11.4 H RDW 17.1 H Lymph % (Auto) Ocean % (Auto) Ocean # Seg Neutrophils % Seg Neutrophils # Seg Neutrophils # Man Monocytes # (Manual) ABG pH POC ABG pO2 ABG pO2 ABG HCO3 ABG O2 Saturation ABG Base Excess ABG Hemoglobin ABG Oxyhemoglobin Oxyhemoglobin BUN 29 H Glucose POC Glucose 107 H Lactic Acid Lactate Dehydrogenase CK-MB (CK-2) NT-Pro-B Natriuret Pep Albumin 11/26/19 11/27/19 11/27/19 17:11 01:53 04:11 WBC RDW Lymph % (Auto) Ocean % (Auto) Ocean # Seg Neutrophils % Seg Neutrophils # Seg Neutrophils # Man Monocytes # (Manual) ABG pH POC ABG pO2 ABG pO2 ABG HCO3 29.2 H ABG O2 Saturation ABG Base Excess 3.4 H ABG Hemoglobin 13.3 L ABG Oxyhemoglobin Oxyhemoglobin 94.5 L BUN Glucose POC Glucose 113 H 108 H Lactic Acid Lactate Dehydrogenase CK-MB (CK-2) NT-Pro-B Natriuret Pep Albumin 11/27/19 11/28/19 11/28/19 05:27 05:00 05:25 WBC RDW Lymph % (Auto) Ocean % (Auto) Ocean # Seg Neutrophils % Seg Neutrophils # Seg Neutrophils # Man Monocytes # (Manual) ABG pH POC ABG pO2 68.1 L ABG pO2 ABG HCO3 ABG O2 Saturation ABG Base Excess ABG Hemoglobin ABG Oxyhemoglobin 91.2 L Oxyhemoglobin BUN Glucose POC Glucose 111 H 110 H Lactic Acid Lactate Dehydrogenase CK-MB (CK-2) NT-Pro-B Natriuret Pep Albumin 11/28/19 11/28/19 11/28/19 13:47 13:47 17:26 WBC 11.3 H RDW 16.1 H Lymph % (Auto) Ocean % (Auto) 9.9 H Ocean # 1.1 H Seg Neutrophils % 71.4 H Seg Neutrophils # 8.1 H Seg Neutrophils # Man Monocytes # (Manual) ABG pH POC ABG pO2 ABG pO2 ABG HCO3 ABG O2 Saturation ABG Base Excess ABG Hemoglobin ABG Oxyhemoglobin Oxyhemoglobin BUN 23 H Glucose 123 H POC Glucose 123 H Lactic Acid Lactate Dehydrogenase CK-MB (CK-2) NT-Pro-B Natriuret Pep Albumin 3.7 L 11/29/19 03:55 WBC RDW Lymph % (Auto) Ocean % (Auto) Ocean # Seg Neutrophils % Seg Neutrophils # Seg Neutrophils # Man Monocytes # (Manual) ABG pH POC ABG pO2 ABG pO2 65.7 L ABG HCO3 28.3 H ABG O2 Saturation 93.9 L ABG Base Excess 3.6 H ABG Hemoglobin 13.3 L ABG Oxyhemoglobin Oxyhemoglobin 91.5 L BUN Glucose POC Glucose Lactic Acid Lactate Dehydrogenase CK-MB (CK-2) NT-Pro-B Natriuret Pep Albumin Chest x-ray: image reviewed (Improved alveolar infiltrates) Allied health notes reviewed: RT
--- NOTE | 2019-11-29 14:27 | Consultation ---
History of Present Illness Consult date: 11/29/19 Consult reason: congestive heart failure History of present illness: 64 YO man with h/o CAD s/p PCI, ischemic cardiomyopathy with EF 20-25%, COPD and htn currently hospitalized with respiratory failure, penumonia, and fevers. He was hospitalized here about 2 months ago due to COVID pneumonia. Repeat COVID testing thus far is negative during current hospitalization. He is currently intubated/mechanically ventilated and not able to provide history. Past History Past Medical History: arthritis, CAD, COPD, heart failure, hypertension, hyperlipidemia, stroke, other (Sepsis in 2015) Past Surgical History: PTCA, Other (Peptic Ulcer Surgery, 2 Knee surgeries, ) Social history: smoking (Occasional Smoker) Family history: no significant family history Medications and Allergies Allergies Allergy/AdvReac Type Severity Reaction Status Date / Time No Known Allergies Allergy Verified 06/23/19 08:58 Home Medications Medication Instructions Recorded Confirmed Last Taken Type lisinopriL [Zestril TAB] 10 mg PO QDAY #30 tablet 12/29/18 11/24/19 Unknown Rx Albuterol Mdi (or & Nicu Only) 2 puff IH Q4HR PRN #1 inhalation 06/25/19 11/24/19 Unknown Rx [ProAir HFA Inhaler] Aspirin [Aspirin BABY CHEW TAB] 81 mg PO QDAY #100 tab.chew 09/20/19 11/24/19 Unknown Rx AtorvaSTATin [Lipitor] 40 mg PO QHS #30 tablet 09/20/19 11/24/19 Unknown Rx Clopidogrel [Plavix] 75 mg PO QDAY #30 tablet 09/20/19 11/24/19 Unknown Rx Furosemide [Lasix TAB] 20 mg PO QDAY #30 tablet 09/20/19 11/24/19 Unknown Rx Pantoprazole [Protonix] 40 mg PO QDAY #10 tablet 09/24/19 11/24/19 Unknown Rx Spironolactone [Aldactone] 25 mg PO QDAY #30 tablet 09/24/19 11/24/19 Unknown Rx carBAMazepine [TEGretol] 100 mg PO BID #60 tablet 09/24/19 11/25/19 Unknown Rx carvediloL [Coreg] 3.125 mg PO BID #60 tablet 09/24/19 11/24/19 Unknown Rx dexAMETHasone [Dexamethasone] 6 mg PO DAILY #10 tablet 09/24/19 11/25/19 Unknown Rx guaiFENesin ER [Mucinex ER] 600 mg PO Q12H #14 tablet.er 09/24/19 11/25/19 Unknown Rx Active Meds: Active Medications Acetaminophen (Tylenol) 650 mg FEEDTUBE Q6H PRN PRN Reason: Pain, Mild (1-3) Last Admin: 11/25/19 18:26 Dose: 650 mg Documented by: Famotidine (Pepcid) 20 mg PO BID [facility] Last Admin: 11/29/19 09:54 Dose: 20 mg Documented by: Fentanyl (Sublimaze) 50 mcg IV Q10MIN PRN PRN Reason: ANALGESIA Furosemide (Lasix) 20 mg IV 0600,1800 [facility] Last Admin: 11/29/19 05:10 Dose: 20 mg Documented by: Heparin Sodium (Porcine) (Heparin) 5,000 unit SUB-Q Q8HR [facility] Last Admin: 11/29/19 05:06 Dose: 5,000 unit Documented by: Hydrophilic Ointment (Vaseline Lip Therapy) 1 applic TP Q2HR PRN PRN Reason: Dry Lips Fentanyl Citrate (Fentanyl Drip Premix) 2,000 mcg in 100 mls @ 5.67 mls/hr IV TITR [facility]; Protocol Last Admin: 11/29/19 12:39 Dose: 2 mcg/kg/hr, 11.34 mls/hr Documented by: Propofol (Diprivan 10 Mg/Ml) 1,000 mg in 100 mls @ 3.402 mls/hr IV TITR [facility]; Protocol Multi-Ingred Cream/Lotion/Oil/Oint (Artificial Tears Ophth Oint) 1 applic OU Q4HR PRN PRN Reason: Dry Eye(s) Ondansetron HCl (Zofran) 4 mg IV Q8H PRN PRN Reason: Nausea And Vomiting Quetiapine Fumarate (Seroquel) 100 mg PO QHS [facility] Last Admin: 11/28/19 22:11 Dose: Not Given Documented by: Sodium Chloride (Sodium Chloride Flush Syringe 10 Ml) 10 ml IV BID [facility] Last Admin: 11/29/19 09:55 Dose: 10 ml Documented by: Sodium Chloride (Sodium Chloride Flush Syringe 10 Ml) 10 ml IV PRN PRN PRN Reason: LINE FLUSH Review of Systems All systems: negative (per hpi) Physical Examination Vital Signs Temp Pulse Resp BP Pulse Ox 98.2 F 135 H 32 H 210/124 91 11/24/19 02:25 11/24/19 02:25 11/24/19 02:25 11/24/19 02:25 11/24/19 02:25 Neck: Positive: neck supple Cardiac: Positive: Reg Rate and Rhythm Lungs: Positive: Decreased Breath Sounds, Rhonchi Abdomen: Positive: Soft, Active Bowel Sounds Extremities: Absent: edema Results 11/28/19 13:47 11/28/19 13:47 Cardiac Enzymes 11/28/19 Range/Units 13:47 AST 21 (5-40) units/L Comprehensive Metabolic Panel 11/28/19 Range/Units 13:47 Sodium 143 (137-145) mmol/L Potassium 4.1 (3.6-5.0) mmol/L Chloride 101.7 (98-107) mmol/L Carbon Dioxide 26 (22-30) mmol/L BUN 23 H (9-20) mg/dL Creatinine 0.9 (0.8-1.3) mg/dL Glucose 123 H (75-100) mg/dL Calcium 10.0 (8.4-10.2) mg/dL AST 21 (5-40) units/L ALT 42 (7-56) units/L Alkaline Phosphatase 57 (35-129) units/L Total Protein 6.9 (6.3-8.2) g/dL Albumin 3.7 L (3.9-5) g/dL Assessment and Plan Multifocal pneumonia Recent COVID pneumonia Chronic systolic heart failure Ischemic Cardiomyopathy CAD s/p PCI Recommend: Agree with gentle diuresis Repeat pBNP level
[2019-11-29] MEDS: QUEtiapine 100 MG TAB PO SCH (21:29)
--- NOTE | 2019-11-29 22:29 | XRay Report ---
CHEST 1 VIEW 11/29/2019 10:11 PM INDICATION / CLINICAL INFORMATION: chest pain. COMPARISON: Radiograph from the same date. FINDINGS: SUPPORT DEVICES: Unchanged. HEART / MEDIASTINUM: No significant abnormality. LUNGS / PLEURA: No significant pulmonary or pleural abnormality. No pneumothorax. ADDITIONAL FINDINGS: No significant additional findings. IMPRESSION: No significant change from earlier today. Signer Name: Jae Yadav MD Signed: 11/29/2019 10:25 PM Workstation Name: [id number]
--- NOTE | 2019-11-30 00:05 | XRay Report ---
ABDOMEN 1 VIEW(S) INDICATION: NGT placement COMPARISON: None available. FINDINGS: Nasogastric tube has tip in stomach Bowel gas pattern: Within normal limits. No dilated loops of large or small bowel. Free air: None. Calcified gallstones: None seen. Calcified urinary tract calculi: None seen. Additional Findings: None. Skeletal structures: No acute abnormality. IMPRESSION: 1. No acute findings. Signer Name: Jose Leblanc MD Signed: 11/30/2019 12:01 AM Workstation Name: [id number]
[2019-11-30] MEDS: fentaNYL DRIP Premix 2,000 MCG/100 ML BAG IV SCH ×2 (04:31→18:14)
[2019-11-30 05:02] LABS: Hematocrit 39.1 % (35.5-45.6); Hemoglobin 12.9 gm/dl (11.8-15.2); Mean Corpuscular HGB Conc 33 % (32-34); Mean Corpuscular Volume 91 fl (84-94); Platelet Count 192 K/mm3 (140-440); Red Blood Count 4.31 M/mm3 (3.65-5.03); Red Cell Distribution Width 15.6 % (13.2-15.2)
[2019-11-30 05:22] LABS: Alanine Aminotransferase 46 units/L (7-56); Albumin 3.8 g/dL (3.9-5); BUN/Creatinine Ratio 27; Blood Urea Nitrogen 30 mg/dL (9-20); Calcium 9.7 mg/dL (8.4-10.2); Hemolysis Index 3
[2019-11-30] MEDS: HEPARIN 5,000 UNIT/1 ML VIAL SUB-Q SCH ×3 (05:31→22:05)
[2019-11-30] MEDS: FUROSEMIDE 20 MG/2 ML INJ IV SCH ×2 (05:31→18:15)
[2019-11-30 06:15] LABS: ABG Base Excess 4.7 mmol/L (-2.0-3.0); ABG HCO3 29.3 mmol/L (20.0-26.0); ABG Methemoglobin 0.4 % (0.0-1.5); ABG Oxygen Saturation 91.5 % (95.0-99.0); ABG PCO2 43.4 mm Hg; ABG PH 7.447 pH Units (7.350-7.450); ABG PO2 56.3 mm Hg (80.0-90.0)
[2019-11-30] MEDS: FAMOTIDINE 20 MG TAB PO SCH ×2 (09:06→22:05)
--- NOTE | 2019-11-30 10:30 | Progress Note ---
Assessment and Plan Acute hypoxemic respiratory failure Bilateral pneumonia, community acquired. Acute congestive heart failure exacerbation. History of cerebrovascular accident. Acute chronic obstructive pulmonary disease exacerbation. Hypertension and hypertensive urgency at presentation. History of arthritis. Oropharyngeal dysphagia OGT placement confirmed, resume enteric nutritional support Continue Seroquel last night, monitor response and monitor QTc Maintenance of sleep-wake cycle Discontinue Hoffman catheter, no clinical indication for ongoing Hoffman - continue diuresis, while monitoring renal function, hemodynamics and electrolyte profile - continue to wean oxygen for O2 sats > 90% - continue bronchodilators with pulmonary hygiene per RT - VAP bundle addressed (Aspiration precautions, HOB >40) - continue to wean per pulmonary driven protocols - continue prn analgesia per CPOT score - follow clinically re: fever curves / trend WBC - Avoid delirium (no benzodiazepines if they can be avoided) - Enteral nutrition at goal rate as tolerated - continue accuchecks with glycemic control per SSI for target blood glucose goal of 140-180 mg/dL while critically ill; Avoid hypoglycemia - continue VTE prophylaxis with Heparin - continue stress ulcer prophylaxis with Famotidine - continue mobility protocols for pressure ulcer prophylaxis - continue fall precautions - continue wound care management per RN / WCT - Supportive transfusions as indicated to keep HgB>7g/dL - Continue to monitor neurologic function - Continue chronic home medications as clinically indicated - Continue all supportive care CONDITION: CRITICAL PROGNOSIS: GUARDED CODE STATUS: FULL CODE The high probability of a clinically significant, sudden or life threatening deterioration of the [Respiratory, cardiovascular & neurological] system(s) required my full and direct attention, intervention and personal management. The aggregate critical care time was [33] minutes without overlap. Time includes spent on [x] Data Review and interpretation [x] Patient assessment and monitoring of vital signs [x] Documentation [x] Medication orders and management Subjective Date of service: 11/30/19 Principal diagnosis: Ac hypoxemic resp failure; Pneumonia; PUI COVID-19; CHF; COPD; HTN Interval history: Patient is seen today for: Acute hypoxemic respiratory failure; Adan. Pneumonia (CAP); PUI COVID-19 infection; AE-CHF; AE-COPD; H/O CVA; HTN Seen and examined at bedside; 24 hour events reviewed; nursing and respiratory care staff consulted; no adverse overnight events reported to me; resting peacefully in bed; awake and alert, ETT in place. No asynchrony, SBT attempted this morning, apneic episodes. Agitated last night, dislodged NGT, OGT placed. Objective Vital Signs - 12hr 11/29/19 11/29/19 11/29/19 22:41 22:51 23:00 Temperature Pulse Rate 103 H 106 H 101 H Pulse Rate [ From Monitor] Respiratory 20 19 20 Rate Blood Pressure 130/74 117/79 128/89 O2 Sat by Pulse 94 95 95 Oximetry 11/29/19 11/29/19 11/29/19 23:11 23:21 23:30 Temperature Pulse Rate 97 H 96 H 94 H Pulse Rate [ From Monitor] Respiratory 20 20 20 Rate Blood Pressure 128/89 119/81 129/80 O2 Sat by Pulse 95 95 96 Oximetry 11/29/19 11/29/19 11/30/19 23:41 23:51 00:00 Temperature 100.3 F H Pulse Rate 93 H 97 H 85 Pulse Rate [ 105 H From Monitor] Respiratory 20 15 20 Rate Blood Pressure 129/80 127/77 O2 Sat by Pulse 96 91 Oximetry 11/30/19 11/30/19 11/30/19 00:01 00:11 00:21 Temperature Pulse Rate 97 H 91 H 88 Pulse Rate [ From Monitor] Respiratory 21 19 20 Rate Blood Pressure 130/70 130/70 116/79 O2 Sat by Pulse 96 95 95 Oximetry 11/30/19 11/30/19 11/30/19 00:30 00:41 00:51 Temperature Pulse Rate 95 H 90 92 H Pulse Rate [ From Monitor] Respiratory 20 20 19 Rate Blood Pressure 115/68 115/68 105/67 O2 Sat by Pulse 95 94 94 Oximetry 11/30/19 11/30/19 11/30/19 01:00 01:11 01:21 Temperature Pulse Rate 88 82 84 Pulse Rate [ From Monitor] Respiratory 20 20 20 Rate Blood Pressure 112/72 112/72 108/64 O2 Sat by Pulse 94 94 95 Oximetry 11/30/19 11/30/19 11/30/19 01:30 01:41 01:51 Temperature Pulse Rate 93 H 86 85 Pulse Rate [ From Monitor] Respiratory 20 20 20 Rate Blood Pressure 113/74 113/74 103/73 O2 Sat by Pulse 93 94 94 Oximetry 11/30/19 11/30/19 11/30/19 02:00 02:11 02:21 Temperature Pulse Rate 86 88 91 H Pulse Rate [ From Monitor] Respiratory 20 20 20 Rate Blood Pressure 98/68 98/68 93/60 O2 Sat by Pulse 94 94 91 Oximetry 11/30/19 11/30/19 11/30/19 02:30 02:41 02:51 Temperature Pulse Rate 87 88 88 Pulse Rate [ From Monitor] Respiratory 20 20 20 Rate Blood Pressure 105/62 105/62 114/59 O2 Sat by Pulse 90 93 93 Oximetry 11/30/19 11/30/19 11/30/19 03:00 03:11 03:21 Temperature Pulse Rate 90 87 87 Pulse Rate [ From Monitor] Respiratory 20 20 20 Rate Blood Pressure 110/69 105/62 115/69 O2 Sat by Pulse 87 89 91 Oximetry 11/30/19 11/30/19 11/30/19 03:30 03:41 03:51 Temperature Pulse Rate 90 94 H 97 H Pulse Rate [ From Monitor] Respiratory 21 20 18 Rate Blood Pressure 123/66 123/66 124/60 O2 Sat by Pulse 90 94 92 Oximetry 11/30/19 11/30/19 11/30/19 04:00 04:01 04:11 Temperature 99.0 F Pulse Rate 86 91 H 89 Pulse Rate [ 105 H From Monitor] Respiratory 20 20 20 Rate Blood Pressure 115/67 123/66 O2 Sat by Pulse 91 93 93 Oximetry 11/30/19 11/30/19 11/30/19 04:12 04:20 04:21 Temperature 99.0 F Pulse Rate 94 H 86 Pulse Rate [ From Monitor] Respiratory 21 Rate Blood Pressure 115/67 100/65 O2 Sat by Pulse 93 Oximetry 11/30/19 11/30/19 11/30/19 04:31 04:41 04:51 Temperature Pulse Rate 92 H 91 H 89 Pulse Rate [ From Monitor] Respiratory 20 20 20 Rate Blood Pressure 105/60 100/65 94/62 O2 Sat by Pulse 93 90 92 Oximetry 11/30/19 11/30/19 11/30/19 05:00 05:11 05:21 Temperature Pulse Rate 86 87 90 Pulse Rate [ From Monitor] Respiratory 20 20 21 Rate Blood Pressure 107/80 94/62 106/63 O2 Sat by Pulse 92 92 92 Oximetry 11/30/19 11/30/19 11/30/19 05:30 05:41 05:51 Temperature Pulse Rate 88 97 H 86 Pulse Rate [ From Monitor] Respiratory 20 20 20 Rate Blood Pressure 100/66 100/66 109/61 O2 Sat by Pulse 93 94 93 Oximetry 11/30/19 11/30/19 11/30/19 06:00 06:11 06:21 Temperature Pulse Rate 88 92 H 91 H Pulse Rate [ From Monitor] Respiratory 20 20 19 Rate Blood Pressure 109/70 100/66 102/67 O2 Sat by Pulse 93 95 95 Oximetry 11/30/19 11/30/19 11/30/19 06:30 06:41 06:51 Temperature Pulse Rate 90 90 89 Pulse Rate [ From Monitor] Respiratory 21 20 19 Rate Blood Pressure 108/69 102/67 112/76 O2 Sat by Pulse 96 96 95 Oximetry 11/30/19 11/30/19 11/30/19 07:00 07:11 07:21 Temperature Pulse Rate 88 85 92 H Pulse Rate [ From Monitor] Respiratory 20 20 19 Rate Blood Pressure 111/71 112/76 107/65 O2 Sat by Pulse 96 96 95 Oximetry 11/30/19 11/30/19 11/30/19 07:30 07:34 07:41 Temperature Pulse Rate 90 90 92 H Pulse Rate [ From Monitor] Respiratory 20 20 Rate Blood Pressure 114/68 114/68 114/68 O2 Sat by Pulse 97 97 96 Oximetry 11/30/19 11/30/19 07:51 08:00 Temperature 98.4 F Pulse Rate 90 86 Pulse Rate [ 89 From Monitor] Respiratory 19 20 Rate Blood Pressure 132/98 116/75 O2 Sat by Pulse 96 91 Oximetry Constitutional: no acute distress, other (elderly and obese male, normocephalic with normal respiratory effort at rest on MVS) Eyes: non-icteric ENT: oropharynx moist, other (ETT 24 cm JASON) Neck: supple, no JVD Effort: normal Ascultation: Bilateral: clear, diminished breath sounds, rhonchi Percussion: Bilateral: not dull Cardiovascular: regular rate and rhythm Gastrointestinal: normoactive bowel sounds, soft, non-tender, non-distended Integumentary: normal Extremities: no cyanosis, no edema, pulses normal, no ischemia or petechiae Neurologic: non-focal exam (grossly), pupils equal and round, motor strength normal and Psychiatric: mood appropriate, affect normal CBC and BMP: 11/30/19 04:17 11/30/19 04:17 ABG, PT/INR, D-dimer: ABG ABG pH 7.447 pH Units (7.350-7.450) 11/30/19 04:56 POC ABG pCO2 44.2 mmHg (32.0-48.0) 11/28/19 05:00 ABG pCO2 43.4 mm Hg 11/30/19 04:56 POC ABG pO2 68.1 mmHg (83-108) L 11/28/19 05:00 ABG pO2 56.3 mm Hg (80.0-90.0) L 11/30/19 04:56 POC ABG HCO3 29.6 11/28/19 05:00 ABG O2 Saturation 91.5 % (95.0-99.0) L 11/30/19 04:56 PT/INR, D-dimer PT 12.7 Sec. (12.2-14.9) 11/25/19 05:11 INR 0.94 (0.87-1.13) 11/25/19 05:11 Abnormal lab findings: Abnormal Labs 11/24/19 11/24/19 11/24/19 02:53 02:53 03:45 WBC 14.3 H RDW 17.2 H Lymph % (Auto) Gregg % (Auto) Gregg # Seg Neutrophils % Seg Neutrophils # Seg Neutrophils # Man 8.3 H Monocytes # (Manual) 0.9 H ABG pH 7.313 L POC ABG pO2 ABG pO2 102.8 H ABG HCO3 ABG O2 Saturation ABG Base Excess -2.9 L ABG Hemoglobin ABG Oxyhemoglobin Oxyhemoglobin 93.9 L Sodium BUN Glucose 195 H POC Glucose Lactic Acid Lactate Dehydrogenase CK-MB (CK-2) 4.3 H NT-Pro-B Natriuret Pep 1181 H Albumin 11/24/19 11/24/19 11/24/19 04:53 04:53 10:37 WBC RDW Lymph % (Auto) Gregg % (Auto) Gregg # Seg Neutrophils % Seg Neutrophils # Seg Neutrophils # Man Monocytes # (Manual) ABG pH POC ABG pO2 ABG pO2 ABG HCO3 ABG O2 Saturation ABG Base Excess ABG Hemoglobin ABG Oxyhemoglobin Oxyhemoglobin Sodium BUN Glucose 162 H POC Glucose Lactic Acid 2.40 H* 2.50 H* Lactate Dehydrogenase 240 H CK-MB (CK-2) NT-Pro-B Natriuret Pep Albumin 11/24/19 11/24/19 11/24/19 12:21 14:50 19:54 WBC RDW Lymph % (Auto) Gregg % (Auto) Gregg # Seg Neutrophils % Seg Neutrophils # Seg Neutrophils # Man Monocytes # (Manual) ABG pH POC ABG pO2 ABG pO2 ABG HCO3 ABG O2 Saturation ABG Base Excess ABG Hemoglobin ABG Oxyhemoglobin Oxyhemoglobin Sodium BUN Glucose POC Glucose 145 H 143 H 124 H Lactic Acid Lactate Dehydrogenase CK-MB (CK-2) NT-Pro-B Natriuret Pep Albumin 11/25/19 11/25/19 11/25/19 00:18 03:18 05:11 WBC 13.7 H RDW 17.1 H Lymph % (Auto) 10.8 L Gregg % (Auto) 8.7 H Gregg # 1.2 H Seg Neutrophils % 80.2 H Seg Neutrophils # 11.0 H Seg Neutrophils # Man Monocytes # (Manual) ABG pH 7.333 L POC ABG pO2 ABG pO2 61.2 L ABG HCO3 ABG O2 Saturation 90.2 L ABG Base Excess ABG Hemoglobin 13.7 L ABG Oxyhemoglobin Oxyhemoglobin 88.2 L Sodium BUN Glucose POC Glucose 109 H Lactic Acid Lactate Dehydrogenase CK-MB (CK-2) NT-Pro-B Natriuret Pep Albumin 11/25/19 11/25/19 11/26/19 05:11 11:40 03:12 WBC RDW Lymph % (Auto) Gregg % (Auto) Gregg # Seg Neutrophils % Seg Neutrophils # Seg Neutrophils # Man Monocytes # (Manual) ABG pH POC ABG pO2 ABG pO2 155.1 H ABG HCO3 27.8 H ABG O2 Saturation ABG Base Excess ABG Hemoglobin 12.2 L ABG Oxyhemoglobin Oxyhemoglobin Sodium BUN 23 H Glucose 110 H POC Glucose 108 H Lactic Acid Lactate Dehydrogenase CK-MB (CK-2) NT-Pro-B Natriuret Pep Albumin 11/26/19 11/26/19 11/26/19 06:17 10:43 10:43 WBC 11.4 H RDW 17.1 H Lymph % (Auto) Gregg % (Auto) Gregg # Seg Neutrophils % Seg Neutrophils # Seg Neutrophils # Man Monocytes # (Manual) ABG pH POC ABG pO2 ABG pO2 ABG HCO3 ABG O2 Saturation ABG Base Excess ABG Hemoglobin ABG Oxyhemoglobin Oxyhemoglobin Sodium BUN 29 H Glucose POC Glucose 107 H Lactic Acid Lactate Dehydrogenase CK-MB (CK-2) NT-Pro-B Natriuret Pep Albumin 11/26/19 11/27/19 11/27/19 17:11 01:53 04:11 WBC RDW Lymph % (Auto) Gregg % (Auto) Gregg # Seg Neutrophils % Seg Neutrophils # Seg Neutrophils # Man Monocytes # (Manual) ABG pH POC ABG pO2 ABG pO2 ABG HCO3 29.2 H ABG O2 Saturation ABG Base Excess 3.4 H ABG Hemoglobin 13.3 L ABG Oxyhemoglobin Oxyhemoglobin 94.5 L Sodium BUN Glucose POC Glucose 113 H 108 H Lactic Acid Lactate Dehydrogenase CK-MB (CK-2) NT-Pro-B Natriuret Pep Albumin 11/27/19 11/28/19 11/28/19 05:27 05:00 05:25 WBC RDW Lymph % (Auto) Gregg % (Auto) Gregg # Seg Neutrophils % Seg Neutrophils # Seg Neutrophils # Man Monocytes # (Manual) ABG pH POC ABG pO2 68.1 L ABG pO2 ABG HCO3 ABG O2 Saturation ABG Base Excess ABG Hemoglobin ABG Oxyhemoglobin 91.2 L Oxyhemoglobin Sodium BUN Glucose POC Glucose 111 H 110 H Lactic Acid Lactate Dehydrogenase CK-MB (CK-2) NT-Pro-B Natriuret Pep Albumin 11/28/19 11/28/19 11/28/19 13:47 13:47 17:26 WBC 11.3 H RDW 16.1 H Lymph % (Auto) Gregg % (Auto) 9.9 H Gregg # 1.1 H Seg Neutrophils % 71.4 H Seg Neutrophils # 8.1 H Seg Neutrophils # Man Monocytes # (Manual) ABG pH POC ABG pO2 ABG pO2 ABG HCO3 ABG O2 Saturation ABG Base Excess ABG Hemoglobin ABG Oxyhemoglobin Oxyhemoglobin Sodium BUN 23 H Glucose 123 H POC Glucose 123 H Lactic Acid Lactate Dehydrogenase CK-MB (CK-2) NT-Pro-B Natriuret Pep Albumin 3.7 L 11/29/19 11/29/19 11/30/19 03:55 17:04 04:17 WBC 13.4 H RDW 15.6 H Lymph % (Auto) Gregg % (Auto) Gregg # Seg Neutrophils % Seg Neutrophils # Seg Neutrophils # Man Monocytes # (Manual) ABG pH POC ABG pO2 ABG pO2 65.7 L ABG HCO3 28.3 H ABG O2 Saturation 93.9 L ABG Base Excess 3.6 H ABG Hemoglobin 13.3 L ABG Oxyhemoglobin Oxyhemoglobin 91.5 L Sodium BUN Glucose POC Glucose 119 H Lactic Acid Lactate Dehydrogenase CK-MB (CK-2) NT-Pro-B Natriuret Pep Albumin 11/30/19 11/30/19 11/30/19 04:17 04:56 05:51 WBC RDW Lymph % (Auto) Gregg % (Auto) Gregg # Seg Neutrophils % Seg Neutrophils # Seg Neutrophils # Man Monocytes # (Manual) ABG pH POC ABG pO2 ABG pO2 56.3 L ABG HCO3 29.3 H ABG O2 Saturation 91.5 L ABG Base Excess 4.7 H ABG Hemoglobin 12.1 L ABG Oxyhemoglobin Oxyhemoglobin 89.2 L Sodium 147 H BUN 30 H Glucose 124 H POC Glucose 127 H Lactic Acid Lactate Dehydrogenase CK-MB (CK-2) NT-Pro-B Natriuret Pep Albumin 3.8 L Allied health notes reviewed: RT
--- NOTE | 2019-11-30 11:16 | Progress Note ---
Assessment and Plan Assessment and plan: Patient is a 64-year-old male with known history of hypertension, COPD, history of coronary artery disease, CHF with ejection fraction of 20 to 25% in August 2018 presenting to the emergency room today via EMS complaining of shortness of breath. Patient was found to be hypoxic and in respiratory distress. Patient was placed on CPAP in route to the hospital. Oxygen saturation was said to be 88%. Started on Solu-Medrol, Lasix and magnesium in ED, patient was also found to be lethargic with an oxygen saturation of about 91% on CPAP. He was subsequently intubated. Work-up in the emergency room including chest x-ray reveals bilateral pneumonia. He had an elevated white count of 14 and also had an elevated BNP. Patient to be admitted to the ICU and placed on empiric IV antibiotics for pneumonia. He will also be tested for COVID-19 and placed on isolation precautions. Most of the history was gotten from the ER physician as patient is currently intubated. 11/25: Leukocytosis improving. Continue current management anticipate extubation possible today. 11/26. Still intubated. Failed SBT yesterday. Repeat COVID-19 test is negative. 11/27. CT head ordered for possible neuro status change is negative. More responsive as the day progressed as per RN. Chest xray today shows interval improvement. He is still on antibiotics - will complete regimen today. 11/28: Considering difficult extubation and severe cardiomyopathy, will obtain cardiology consult. Aspiration precautions, tube feeds held, continue antibiotics. 11/29: Still with intermittent fever but improving imaging, continue diuresis. Diagnosis Acute hypoxemic respiratory failure Bilateral pneumonia, community acquired, - COIVD 19 NEGATIVE Person under investigation for COVID-19 infection. Aspiration Pneumonia Acute congestive heart failure exacerbation Presumed systolic History of cerebrovascular accident. Tobacco use disorder Acute chronic obstructive pulmonary disease exacerbation. Hypertension and hypertensive urgency at presentation. History of arthritis. Leukocytosis. Lactic acidosis. Oropharyngeal dysphagia S/P Knee surgery History of peptic Ulcer Surgery Plan Continue supportive care Wean from vent as tolerated Continue ceftriaxone 2 gm IV qday and azithromycin 500 mg PO qday per ID Steroids Repeat Covid 19 test negative Continue diuresis Aspiration precautions DVT/GI prophy Discussed with family The high probability of a clinically significant, sudden or life threatening deterioration of the [Respiratory, cardiovascular & neurological] system(s) required my full and direct attention, intervention and personal management. The aggregate critical care time was [35] minutes without overlap. Time includes spent on [x] Data Review and interpretation [x] Patient assessment and monitoring of vital signs [x] Documentation [x] Medication orders and management History Interval history: Patient seen and examined, no new changes, per nursing staff aspirated yesterday. Hospitalist Physical - Physical exam Narrative exam: General appearance: Present: well-nourished, other (Intubated), opens eyes to names and follows command - EENT Eyes: Present: PERRL, EOM intact. Absent: scleral icterus ENT: clear oral mucosa, dentition normal - Neck Neck: Present: supple, normal ROM - Respiratory Respiratory effort: normal, mechanical ventilation Respiratory: bilateral: rales - Cardiovascular Rhythm: regular Heart Sounds: Present: S1 & S2. Absent: gallop, systolic murmur, diastolic murmur, rub - Extremities Extremities: no ischemia, pulses intact, pulses symmetrical, No edema, Full ROM Peripheral Pulses: within normal limits - Abdominal General gastrointestinal: Present: soft, non-tender, non-distended, normal bowel sounds. Absent: mass - Integumentary Integumentary: Present: clear, warm, dry. Absent: rash - Musculoskeletal Musculoskeletal: strength equal bilaterally - Psychiatric Psychiatric: cooperative - Constitutional Vitals: Temp Pulse Resp BP Pulse Ox 98.4 F 88 21 122/83 94 11/30/19 08:00 11/30/19 10:21 11/30/19 10:21 11/30/19 10:21 11/30/19 10:21 General appearance: Present: no acute distress, well-nourished, other (Inntubated) HEART Score - HEART Score Troponin: Troponin T < 0.010 ng/mL (0.00-0.029) 11/24/19 02:53 Results - Labs CBC & Chem 7: 11/30/19 04:17 11/30/19 04:17 Labs: Laboratory Last Values WBC 13.4 K/mm3 (4.5-11.0) H 11/30/19 04:17 RBC 4.31 M/mm3 (3.65-5.03) 11/30/19 04:17 Hgb 12.9 gm/dl (11.8-15.2) 11/30/19 04:17 Hct 39.1 % (35.5-45.6) 11/30/19 04:17 MCV 91 fl (84-94) 11/30/19 04:17 MCH 30 pg (28-32) 11/30/19 04:17 MCHC 33 % (32-34) 11/30/19 04:17 RDW 15.6 % (13.2-15.2) H 11/30/19 04:17 Plt Count 192 K/mm3 (140-440) 11/30/19 04:17 Lymph % (Auto) 16.6 % (13.4-35.0) 11/28/19 13:47 [place] % (Auto) 9.9 % (0.0-7.3) H 11/28/19 13:47 Eos % (Auto) 1.6 % (0.0-4.3) 11/28/19 13:47 Baso % (Auto) 0.5 % (0.0-1.8) 11/28/19 13:47 Lymph # 1.9 K/mm3 (1.2-5.4) 11/28/19 13:47 [place] # 1.1 K/mm3 (0.0-0.8) H 11/28/19 13:47 Eos # 0.2 K/mm3 (0.0-0.4) 11/28/19 13:47 Baso # 0.1 K/mm3 (0.0-0.1) 11/28/19 13:47 Add Manual Diff Complete 11/24/19 02:53 Total Counted 100 11/24/19 02:53 Seg Neutrophils % 71.4 % (40.0-70.0) H 11/28/19 13:47 Seg Neuts % (Manual) 58.0 % (40.0-70.0) 11/24/19 02:53 Band Neutrophils % 0 % 11/24/19 02:53 Lymphocytes % (Manual) 33.0 % (13.4-35.0) 11/24/19 02:53 Reactive Lymphs % (Man) 0 % 11/24/19 02:53 Monocytes % (Manual) 6.0 % (0.0-7.3) 11/24/19 02:53 Eosinophils % (Manual) 3.0 % (0.0-4.3) 11/24/19 02:53 Basophils % (Manual) 0 % (0.0-1.8) 11/24/19 02:53 Metamyelocytes % 0 % 11/24/19 02:53 Myelocytes % 0 % 11/24/19 02:53 Promyelocytes % 0 % 11/24/19 02:53 Blast Cells % 0 % 11/24/19 02:53 Nucleated RBC % Not Reportable 11/24/19 02:53 Seg Neutrophils # 8.1 K/mm3 (1.8-7.7) H 11/28/19 13:47 Seg Neutrophils # Man 8.3 K/mm3 (1.8-7.7) H 11/24/19 02:53 Band Neutrophils # 0.0 K/mm3 11/24/19 02:53 Lymphocytes # (Manual) 4.7 K/mm3 (1.2-5.4) 11/24/19 02:53 Abs React Lymphs (Man) 0.0 K/mm3 11/24/19 02:53 Monocytes # (Manual) 0.9 K/mm3 (0.0-0.8) H 11/24/19 02:53 Eosinophils # (Manual) 0.4 K/mm3 (0.0-0.4) 11/24/19 02:53 Basophils # (Manual) 0.0 K/mm3 (0.0-0.1) 11/24/19 02:53 Metamyelocytes # 0.0 K/mm3 11/24/19 02:53 Myelocytes # 0.0 K/mm3 11/24/19 02:53 Promyelocytes # 0.0 K/mm3 11/24/19 02:53 Blast Cells # 0.0 K/mm3 11/24/19 02:53 WBC Morphology Not Reportable 11/24/19 02:53 Hypersegmented Neuts Not Reportable 11/24/19 02:53 Hyposegmented Neuts Not Reportable 11/24/19 02:53 Hypogranular Neuts Not Reportable 11/24/19 02:53 Smudge Cells Not Reportable 11/24/19 02:53 Toxic Granulation Not Reportable 11/24/19 02:53 Toxic Vacuolation Not Reportable 11/24/19 02:53 Dohle Bodies Not Reportable 11/24/19 02:53 Pelger-Huet Anomaly Not Reportable 11/24/19 02:53 Hector Rods Not Reportable 11/24/19 02:53 Platelet Estimate Consistent w auto 11/24/19 02:53 Clumped Platelets Not Reportable 11/24/19 02:53 Plt Clumps, EDTA Not Reportable 11/24/19 02:53 Large Platelets Not Reportable 11/24/19 02:53 Giant Platelets Not Reportable 11/24/19 02:53 Platelet Satelliting Not Reportable 11/24/19 02:53 Plt Morphology Comment Not Reportable 11/24/19 02:53 RBC Morphology Not Reportable 11/24/19 02:53 Dimorphic RBCs Not Reportable 11/24/19 02:53 Polychromasia Not Reportable 11/24/19 02:53 Hypochromasia Not Reportable 11/24/19 02:53 Poikilocytosis Not Reportable 11/24/19 02:53 Anisocytosis Few 11/24/19 02:53 Microcytosis Not Reportable 11/24/19 02:53 Macrocytosis Not Reportable 11/24/19 02:53 Spherocytes Not Reportable 11/24/19 02:53 Pappenheimer Bodies Not Reportable 11/24/19 02:53 Sickle Cells Not Reportable 11/24/19 02:53 Target Cells Not Reportable 11/24/19 02:53 Tear Drop Cells Not Reportable 11/24/19 02:53 Ovalocytes Not Reportable 11/24/19 02:53 Helmet Cells Not Reportable 11/24/19 02:53 [place] Bodies Not Reportable 11/24/19 02:53 [place] Rings Not Reportable 11/24/19 02:53 Oc Cells Not Reportable 11/24/19 02:53 Bite Cells Not Reportable 11/24/19 02:53 Crenated Cell Not Reportable 11/24/19 02:53 Elliptocytes Not Reportable 11/24/19 02:53 Acanthocytes (Spur) Not Reportable 11/24/19 02:53 Rouleaux Not Reportable 11/24/19 02:53 Hemoglobin C Crystals Not Reportable 11/24/19 02:53 Schistocytes Not Reportable 11/24/19 02:53 Malaria parasites Not Reportable 11/24/19 02:53 Clifford Bodies Not Reportable 11/24/19 02:53 Hem Pathologist Commnt No 11/24/19 02:53 PT 12.7 Sec. (12.2-14.9) 11/25/19 05:11 INR 0.94 (0.87-1.13) 11/25/19 05:11 ABG pH 7.447 pH Units (7.350-7.450) 11/30/19 04:56 POC ABG pCO2 44.2 mmHg (32.0-48.0) 11/28/19 05:00 ABG pCO2 43.4 mm Hg 11/30/19 04:56 POC ABG pO2 68.1 mmHg (83-108) L 11/28/19 05:00 ABG pO2 56.3 mm Hg (80.0-90.0) L 11/30/19 04:56 POC ABG HCO3 29.6 11/28/19 05:00 ABG HCO3 29.3 mmol/L (20.0-26.0) H 11/30/19 04:56 ABG O2 Saturation 91.5 % (95.0-99.0) L 11/30/19 04:56 ABG O2 Content 15.1 (0.0-44) 11/30/19 04:56 POC ABG Base Excess 4.8 11/28/19 05:00 ABG Base Excess 4.7 mmol/L (-2.0-3.0) H 11/30/19 04:56 ABG Hemoglobin 12.1 gm/dl (14.0-18.0) L 11/30/19 04:56 ABG Oxyhemoglobin 91.2 (94-98) L 11/28/19 05:00 ABG Carboxyhemoglobin 2.2 % (0.0-5.0) 11/30/19 04:56 ABG Methemoglobin 0.4 % (0.0-1.5) 11/30/19 04:56 Oxyhemoglobin 89.2 % (95.0-99.0) L 11/30/19 04:56 Carboxyhemoglobin 1.3 (0.5-1.5) 11/28/19 05:00 FiO2 30 % 11/30/19 04:56 Sodium 147 mmol/L (137-145) H 11/30/19 04:17 Potassium 4.1 mmol/L (3.6-5.0) 11/30/19 04:17 Chloride 104.2 mmol/L (98-107) 11/30/19 04:17 Carbon Dioxide 28 mmol/L (22-30) 11/30/19 04:17 Anion Gap 19 mmol/L 11/30/19 04:17 BUN 30 mg/dL (9-20) H 11/30/19 04:17 Creatinine 1.1 mg/dL (0.8-1.3) 11/30/19 04:17 Estimated GFR > 60 ml/min 11/30/19 04:17 BUN/Creatinine Ratio 27 % 11/30/19 04:17 Glucose 124 mg/dL (75-100) H 11/30/19 04:17 POC Glucose 127 (70-105) H 11/30/19 05:51 Lactic Acid 2.50 mmol/L (0.7-2.0) H* 11/24/19 10:37 Calcium 9.7 mg/dL (8.4-10.2) 11/30/19 04:17 Ferritin 84.4 ng/mL (30.0-300.0) 11/24/19 04:53 Total Bilirubin 0.80 mg/dL (0.1-1.2) 11/30/19 04:17 AST 27 units/L (5-40) 11/30/19 04:17 ALT 46 units/L (7-56) 11/30/19 04:17 Alkaline Phosphatase 56 units/L (35-129) 11/30/19 04:17 Lactate Dehydrogenase 240 units/L (91-180) H 11/24/19 04:53 Total Creatine Kinase 141 units/L (55-170) 11/24/19 02:53 CK-MB (CK-2) 4.3 ng/mL (0.0-4.0) H 11/24/19 02:53 CK-MB (CK-2) Rel Index 3.0 (0-4) 11/24/19 02:53 Troponin T < 0.010 ng/mL (0.00-0.029) 11/24/19 02:53 C-Reactive Protein 0.10 mg/dL (0.00-1.30) 11/24/19 04:53 NT-Pro-B Natriuret Pep 286.1 pg/mL (0-900) 11/29/19 15:37 Total Protein 6.3 g/dL (6.3-8.2) 11/30/19 04:17 Albumin 3.8 g/dL (3.9-5) L 11/30/19 04:17 Albumin/Globulin Ratio 1.5 % 11/30/19 04:17 Procalcitonin 0.12 ng/mL (<0.15) 11/25/19 05:11 Coronavirus (PCR) Negative (Negative) 11/26/19 08:26 - Diagnostic Impressions Diagnostic Impressions: Echocardiogram 11/29/19 07:37 Transthoracic Echocardiogram Indication: CHF BP: 116/72 HR: 33 Conclusions *The study is technically limited due to poor acoustic windows. *Global left ventricular systolic function is normal. *The estimated ejection fraction is 50-55%. *Mild concentric left ventricular hypertrophy is observed. *There is trace of mitral regurgitation. *There is mild tricuspid regurgitation. Findings Procedure Info: The study quality is poor. The study is technically limited due to poor acoustic windows. The study is technically limited due to patient body habitus. Left Ventricle: The left ventricular chamber size is normal. Mild concentric left ventricular hypertrophy is observed. Global left ventricular systolic function is normal. The estimated ejection fraction is 50-55%. Left Atrium: The left atrial chamber size is normal. Right Ventricle: The right ventricular cavity size is normal. Right Atrium: The right atrial cavity size is normal. Aortic Valve: The aortic valve leaflets are moderately thickened. There is trace of aortic regurgitation. There is no evidence of aortic stenosis. Mitral Valve: The mitral valve leaflets are mildly thickened. There is trace of mitral regurgitation. There is no evidence of mitral stenosis. Tricuspid Valve: There is mild tricuspid regurgitation. No pulmonary hypertension is noted. Pulmonic Valve: There is trace pulmonic regurgitation. Pericardium: There is no pericardial effusion. Aorta: There is no dilatation of the aortic root. Venous: The inferior vena cava appears normal in size. Contrast: Definity was used to optimize study. Intravenous contrast was used to enhance endocardial border definition. Measurements Chambers 2D Name Value Normal Range Ao root diameter (2D) 3.4 cm (2 - 3.7) Aortic Valve Name Value Normal Range AV Vmax 0.98 m/sec - AV VTI 16.76 cm - AV peak gradient 3.83 mmHg - AV mean gradient 2.57 mmHg - LVOT diameter 3.11 cm - LVOT Vmax 0.68 m/sec - LVOT VTI 11.52 cm - LVOT peak gradient 1.84 mmHg - LVOT mean gradient 1.27 mmHg - SV LVOT 87.31 ml - MALOU (continuity Vmax) 5.24 cm2 - MALOU (continuity VTI) 5.21 cm2 - Tricuspid Valve Name Value Normal Range IVC diameter 2.24 cm (1.2 - 2.3) Hoffman/IV: Voiding Method Indwelling Catheter IV Catheter Type [Left Wrist] INT / Saline Lock IV Catheter Type [Right INT / Saline Lock Antecubital] Active Medications - Current Medications Current Medications: Generic Name Dose Route Start Last Admin Trade Name Freq PRN Reason Stop Dose Admin Acetaminophen 650 mg 11/25/19 17:27 11/25/19 18:26 Tylenol FEEDTUBE 650 mg Q6H PRN Administration Pain, Mild (1-3) Famotidine 20 mg 11/25/19 10:00 11/30/19 09:06 Pepcid PO 20 mg BID CAR Administration Fentanyl 50 mcg 11/24/19 09:55 Sublimaze IV Q10MIN PRN ANALGESIA Furosemide 20 mg 11/24/19 18:00 11/30/19 05:31 Lasix IV 20 mg 0600,1800 CAR Administration Heparin Sodium (Porcine) 5,000 unit 11/24/19 06:00 11/30/19 05:31 Heparin SUB-Q 5,000 unit Q8HR CAR Administration Hydrophilic Ointment 1 applic 11/24/19 02:23 Vaseline Lip Therapy TP Q2HR PRN Dry Lips Fentanyl Citrate 2,000 mcg in 100 mls @ 5.67 mls/hr 11/24/19 10:00 11/30/19 04:31 Fentanyl Drip Premix IV 2 mcg/kg/hr TITR CAR 11.34 mls/hr Administration Protocol 1 MCG/KG/HR Propofol 1,000 mg in 100 mls @ 3.402 mls/hr 11/28/19 17:25 Diprivan 10 Mg/Ml IV TITR CAR Protocol 5 MCG/KG/MIN Multi-Ingred Cream/Lotion/Oil/Oint 1 applic 11/24/19 02:23 Artificial Tears Ophth Oint OU Q4HR PRN Dry Eye(s) Ondansetron HCl 4 mg 11/24/19 05:31 Zofran IV Q8H PRN Nausea And Vomiting Quetiapine Fumarate 100 mg 11/28/19 22:00 11/29/19 21:29 Seroquel PO 100 mg QHS CAR Administration Sodium Chloride 10 ml 11/24/19 10:00 11/30/19 09:06 Sodium Chloride Flush Syringe 10 Ml IV 10 ml BID CAR Administration Sodium Chloride 10 ml 11/24/19 05:31 Sodium Chloride Flush Syringe 10 Ml IV PRN PRN LINE FLUSH Nutrition/Malnutrition Assess - Dietary Evaluation Nutrition/Malnutrition Findings: Nutrition Notes Start: 11/24/19 12:22 Freq: Status: Active Protocol: Document 11/26/19 11:18 HEATHER (Rec: 11/26/19 11:28 HEATHER [id number]) Co-Sign 11/26/19 11:18 LP Nutrition Notes Initial or Follow up Reassessment Current Diagnosis Coronary Artery Disease,Heart Failure,Respiratory Failure, Stroke,Hyperlipidemia Current Diet TF Vital HP 65ml/hr Labs/Tests Reviewed Pertinent Medications Lasix Height 6 ft 2 in Weight 113.39 kg [place] Body Weight (kg) 86.36 BMI 32.1 Weight Status Obese Subjective/Other Information Pt is running at TF goal Vital HP 65ml/hr and tolerating TF Percent of energy/protein needs met: 98%/70% Burn Absent Trauma Absent GI Symptoms None Usual Diet at Home unknown Skin Integrity/Comment intact Current % PO Negligible Minimum of two criteria No physical signs of malnutrition #1 Nutrition Diagnosis Inadequate oral intake Diagnosis Progress(for reassessment Continues documentation) Is patient on ventilator? Yes Is Patient Ambulatory and/or Out of Bed No REE-([facility]-confined to bed) 2403.072 Kcal/Kg value to use for calculation 14 Approximate Energy Requirements Using 1587 kcal/Kg Calculation Used for Recommendations Kcal/kg Additional Notes Protein needs 162g (up to 2g/ kg IBW) Fluid needs are 1.5L Nutrition Intervention Change Diet Order: Continue TF Nutrition Support: Vital HP at 65ml/hr Flush 50ml q4hr Kcal 1,560 Protein (gm) 114 Fluid (mL) 1,304 % RDI: 100 Goal #1 Pt will meet 75-100% of energy and protein needs Anticipated Discharge Needs: unable to determine at this time Follow-Up By: 12/01/19 Additional Comments Ck TF tolerance
--- NOTE | 2019-11-30 14:29 | Progress Note ---
Assessment and Plan Multifocal pneumonia Recent COVID pneumonia Chronic systolic heart failure Ischemic Cardiomyopathy CAD s/p PCI Recommend: Agree with gentle diuresis Continue current therapy Subjective Date of service: 11/30/19 Principal diagnosis: Ac hypoxemic resp failure; Pneumonia; PUI COVID-19; CHF; COPD; HTN Interval history: No acute events Objective Vital Signs Temp Pulse Pulse Resp BP Pulse Ox 11/30/19 13:00 88 103/82 95 11/30/19 12:00 97.7 F 11/30/19 11:11 85 20 110/80 97 11/30/19 11:00 90 20 110/80 96 11/30/19 10:51 91 H 20 113/71 96 11/30/19 10:41 87 21 113/71 95 11/30/19 10:31 87 20 113/71 94 11/30/19 10:21 88 21 122/83 94 11/30/19 10:11 88 20 132/84 93 11/30/19 10:00 85 18 132/84 95 11/30/19 09:51 86 17 130/76 94 11/30/19 09:41 83 14 125/79 95 11/30/19 09:30 92 H 20 125/79 95 11/30/19 09:21 82 20 118/77 93 11/30/19 09:11 87 18 111/80 88 11/30/19 09:00 85 21 111/80 97 11/30/19 08:51 89 20 130/83 95 11/30/19 08:41 84 11 L 115/68 98 11/30/19 08:31 87 21 115/68 94 11/30/19 08:21 86 20 115/77 95 11/30/19 08:11 88 19 116/75 96 11/30/19 08:00 98.4 F 86 89 20 116/75 91 11/30/19 07:51 90 19 132/98 96 11/30/19 07:41 92 H 20 114/68 96 11/30/19 07:34 90 114/68 97 11/30/19 07:30 90 20 114/68 97 11/30/19 07:21 92 H 19 107/65 95 11/30/19 07:11 85 20 112/76 96 11/30/19 07:00 88 20 111/71 96 11/30/19 06:51 89 19 112/76 95 11/30/19 06:41 90 20 102/67 96 07 06:30 90 21 108/69 96 11/30/19 06:21 91 H 19 102/67 95 11/30/19 06:11 92 H 20 100/66 95 07 06:00 88 20 109/70 93 11/30/19 05:51 86 20 109/61 93 11/30/19 05:41 97 H 20 100/66 94 11/30/19 05:30 88 20 100/66 93 11/30/19 05:21 90 21 106/63 92 11/30/19 05:11 87 20 94/62 92 11/30/19 05:00 86 20 107/80 92 11/30/19 04:51 89 20 94/62 92 11/30/19 04:41 91 H 20 100/65 90 11/30/19 04:31 92 H 20 105/60 93 11/30/19 04:21 86 21 100/65 11/30/19 04:20 99.0 F 11/30/19 04:12 94 H 115/67 93 11/30/19 04:11 89 20 123/66 93 11/30/19 04:01 91 H 20 115/67 93 11/30/19 04:00 99.0 F 86 105 H 20 91 11/30/19 03:51 97 H 18 124/60 92 11/30/19 03:41 94 H 20 123/66 94 11/30/19 03:30 90 21 123/66 90 11/30/19 03:21 87 20 115/69 91 11/30/19 03:11 87 20 105/62 89 07 03:00 90 20 110/69 87 11/30/19 02:51 88 20 114/59 93 11/30/19 02:41 88 20 105/62 93 11/30/19 02:30 87 20 105/62 90 11/30/19 02:21 91 H 20 93/60 91 11/30/19 02:11 88 20 98/68 94 11/30/19 02:00 86 20 98/68 94 11/30/19 01:51 85 20 103/73 94 11/30/19 01:41 86 20 113/74 94 11/30/19 01:30 93 H 20 113/74 93 11/30/19 01:21 84 20 108/64 95 11/30/19 01:11 82 20 112/72 94 11/30/19 01:00 88 20 112/72 94 11/30/19 00:51 92 H 19 105/67 94 11/30/19 00:41 90 20 115/68 94 11/30/19 00:30 95 H 20 115/68 95 11/30/19 00:21 88 20 116/79 95 11/30/19 00:11 91 H 19 130/70 95 11/30/19 00:01 97 H 21 130/70 96 11/30/19 00:00 100.3 F H 85 105 H 20 91 11/29/19 23:51 97 H 15 127/77 11/29/19 23:41 93 H 20 129/80 96 11/29/19 23:30 94 H 20 129/80 96 11/29/19 23:21 96 H 20 119/81 95 11/29/19 23:11 97 H 20 128/89 95 11/29/19 23:00 101 H 20 128/89 95 11/29/19 22:51 106 H 19 117/79 95 11/29/19 22:41 103 H 20 130/74 94 11/29/19 22:30 101 H 19 130/74 94 11/29/19 22:27 107 H 18 123/72 94 11/29/19 22:21 111 H 20 123/72 94 11/29/19 22:11 116 H 22 146/93 95 11/29/19 22:01 119 H 21 146/93 94 11/29/19 21:51 125 H 22 222/105 94 11/29/19 21:41 125 H 22 132/81 95 11/29/19 21:30 120 H 20 132/81 94 11/29/19 21:21 139 H 20 169/85 95 11/29/19 21:13 160 H 26 H 202/109 11/29/19 21:10 127 H 95 11/29/19 21:01 202/109 11/29/19 20:46 222/105 11/29/19 20:31 245/182 11/29/19 20:21 157 H 30 H 151/68 95 11/29/19 20:11 92 H 18 143/71 90 11/29/19 20:01 101 H 20 143/71 96 11/29/19 20:00 99.9 F H 104 H 105 H 20 91 11/29/19 19:51 92 H 21 144/75 96 11/29/19 19:41 99 H 21 137/90 95 11/29/19 19:31 98 H 18 137/90 96 11/29/19 19:21 112 H 14 144/75 97 11/29/19 19:11 102 H 15 131/71 99 11/29/19 19:01 91 H 19 131/71 97 11/29/19 18:51 91 H 17 128/63 95 11/29/19 18:41 128/63 81 L 11/29/19 18:30 143/80 95 11/29/19 18:20 90 19 143/80 95 11/29/19 18:10 102 H 21 135/74 90 11/29/19 18:00 87 21 128/63 94 11/29/19 17:51 89 18 133/64 95 11/29/19 17:41 87 21 138/74 95 11/29/19 17:30 95 H 20 138/74 88 11/29/19 17:20 86 19 133/64 96 11/29/19 17:11 91 H 20 126/60 95 11/29/19 17:01 90 21 126/60 94 11/29/19 16:51 87 19 120/74 94 11/29/19 16:41 87 18 120/74 94 11/29/19 16:30 91 H 19 120/74 95 11/29/19 16:21 85 17 134/72 95 11/29/19 16:11 83 20 120/63 94 11/29/19 16:01 80 19 120/63 94 11/29/19 16:00 99.4 F 84 84 20 91 11/29/19 15:51 83 21 123/72 95 11/29/19 15:41 76 20 113/66 94 11/29/19 15:39 79 116/63 93 11/29/19 15:30 76 20 113/66 95 11/29/19 15:21 78 19 117/74 95 11/29/19 15:11 76 21 116/78 96 11/29/19 15:00 83 21 116/78 93 11/29/19 14:51 79 20 120/76 96 11/29/19 14:41 85 18 122/72 94 11/29/19 14:30 84 22 122/72 93 - Physical Examination Neck: Positive: neck supple Cardiac: Positive: Reg Rate and Rhythm Lungs: Positive: clear to auscultation Abdomen: Positive: Soft, Active Bowel Sounds Extremities: Absent: edema - Labs and Meds Cardiac Enzymes 11/30/19 Range/Units 04:17 AST 27 (5-40) units/L CBC 11/30/19 Range/Units 04:17 WBC 13.4 H (4.5-11.0) K/mm3 RBC 4.31 (3.65-5.03) M/mm3 Hgb 12.9 (11.8-15.2) gm/dl Hct 39.1 (35.5-45.6) % Plt Count 192 (140-440) K/mm3 Comprehensive Metabolic Panel 11/30/19 Range/Units 04:17 Sodium 147 H (137-145) mmol/L Potassium 4.1 (3.6-5.0) mmol/L Chloride 104.2 (98-107) mmol/L Carbon Dioxide 28 (22-30) mmol/L BUN 30 H (9-20) mg/dL Creatinine 1.1 (0.8-1.3) mg/dL Glucose 124 H (75-100) mg/dL Calcium 9.7 (8.4-10.2) mg/dL AST 27 (5-40) units/L ALT 46 (7-56) units/L Alkaline Phosphatase 56 (35-129) units/L Total Protein 6.3 (6.3-8.2) g/dL Albumin 3.8 L (3.9-5) g/dL - Allied health notes Allied health notes reviewed: RT
[2019-11-30] MEDS: QUEtiapine 100 MG TAB PO SCH (22:05)
--- NOTE | 2019-12-01 03:25 | XRay Report ---
CHEST 1 VIEW INDICATION: follow up respiratory failure COMPARISON: 11/29/2019 FINDINGS: SUPPORT DEVICES: Endotracheal tubes in good position. Nasogastric tube has tip below diaphragm. HEART / MEDIASTINUM: No significant abnormality. LUNGS / PLEURA: Interval development airspace process right lower lobe and right middle lobe, consist ent with volume loss. Subsegmental atelectasis present left infrahilar region. No pneumothorax. ADDITIONAL FINDINGS: IMPRESSION: 1. Interval development airspace changes right middle and right lower lobe consistent with atelectasi s Signer Name: Jose Leblanc MD Signed: 12/01/2019 3:21 AM Workstation Name: [id number]
[2019-12-01] MEDS: HEPARIN 5,000 UNIT/1 ML VIAL SUB-Q SCH ×3 (05:09→22:33)
[2019-12-01] MEDS: FUROSEMIDE 20 MG/2 ML INJ IV SCH (05:09)
[2019-12-01] MEDS ORDERED: SODIUM CHLORIDE 0.9% 1000 ML 1,000 ML IV SCH (06:00)
[2019-12-01] MEDS: fentaNYL DRIP Premix 2,000 MCG/100 ML BAG IV SCH ×2 (06:42→17:08)
[2019-12-01] MEDS ORDERED: LORazepam 2 MG/ML VIAL ONE (10:19)
--- NOTE | 2019-12-01 10:22 | Progress Note ---
Assessment and Plan Multifocal pneumonia with intermittent fevers negative COVID-19 test Ischemic Cardiomyopathy, resolving echo this presentation reports an improved LVEF 50-55%. echo 08/2018: decreased LVEF 20-25%. Hx of CAD [facility] 12/2018: mild in-stent restenosis. No significant residual disease. Subjective Date of service: 12/01/19 Principal diagnosis: Ac hypoxemic resp failure; Pneumonia; PUI COVID-19; CHF; COPD; HTN Interval history: Alert but remains intubated. Stable sinus rhythm on telemetry. Objective Vital Signs Temp Pulse Pulse Resp BP Pulse Ox 12/01/19 09:51 94 H 95/62 95 12/01/19 09:10 100 H 22 103/66 95 12/01/19 09:00 105 H 22 103/66 89 12/01/19 08:50 98 H 23 97/65 94 12/01/19 08:40 99 H 21 102/57 95 12/01/19 08:30 103 H 22 102/57 89 12/01/19 08:20 102 H 23 110/56 95 12/01/19 08:10 102 H 23 116/61 94 12/01/19 08:00 99.1 F 110 H 25 H 116/61 93 12/01/19 07:50 105 H 17 101/53 95 12/01/19 07:40 103 H 26 H 116/49 94 12/01/19 07:30 105 H 24 116/49 90 12/01/19 07:27 102 H 101/52 96 12/01/19 07:20 99 H 23 91/62 95 12/01/19 07:10 94 H 25 H 91/62 94 12/01/19 07:00 96 H 22 91/62 88 12/01/19 06:50 88 21 101/68 96 12/01/19 06:40 89 19 100/65 97 12/01/19 06:30 89 20 100/65 91 08 06:20 92 H 20 91/52 96 08 06:10 92 H 20 89/57 96 12/01/19 06:00 94 H 20 89/57 90 12/01/19 05:50 96 H 20 91/61 96 12/01/19 05:40 93 H 20 103/64 96 12/01/19 05:30 90 21 103/64 90 12/01/19 05:20 95 H 22 93/62 95 12/01/19 05:10 94 H 21 95/56 97 12/01/19 05:00 92 H 19 95/56 90 12/01/19 04:50 95 H 20 90/55 96 12/01/19 04:43 102 H 114/49 94 12/01/19 04:40 95 H 21 87/56 96 12/01/19 04:30 102 H 20 87/56 89 12/01/19 04:20 94 H 20 83/53 96 12/01/19 04:10 102 H 20 86/65 96 12/01/19 04:00 98.2 F 90 94 H 20 86/65 91 12/01/19 03:50 103 H 22 97/56 96 12/01/19 03:40 96 H 20 112/60 96 12/01/19 03:30 103 H 20 112/60 91 12/01/19 03:20 99 H 20 97/62 95 12/01/19 03:10 105 H 20 103/50 95 12/01/19 03:00 95 H 21 103/50 90 12/01/19 02:50 99 H 21 104/52 94 12/01/19 02:40 96 H 22 107/57 94 12/01/19 02:30 98 H 21 91/55 90 12/01/19 02:20 102 H 22 91/55 94 12/01/19 02:10 99 H 22 100/54 92 12/01/19 02:00 104 H 21 100/54 91 12/01/19 01:50 105 H 25 H 92/60 97 12/01/19 01:40 96 H 21 113/58 96 12/01/19 01:30 99 H 21 93/54 91 12/01/19 01:20 99 H 22 85/52 95 12/01/19 01:10 99 H 20 95/58 96 12/01/19 01:00 98 H 18 113/58 89 12/01/19 00:50 97 H 20 95/58 96 12/01/19 00:40 98 H 20 92/63 96 12/01/19 00:30 99 H 20 92/63 90 12/01/19 00:20 98 H 20 96/69 95 12/01/19 00:10 101 H 21 112/64 95 12/01/19 00:00 98.5 F 96 H 94 H 20 88/57 91 11/30/19 23:50 96 H 20 114/49 94 11/30/19 23:47 102 H 114/49 94 11/30/19 23:44 101 H 20 93/67 94 11/30/19 23:40 101 H 20 93/67 93 11/30/19 23:39 100 H 21 112/64 93 11/30/19 23:30 108 H 19 112/64 11/30/19 23:20 104 H 20 93/67 93 11/30/19 23:10 105 H 20 96/65 93 11/30/19 23:01 101 H 21 125/52 88 11/30/19 22:51 100 H 20 96/65 94 11/30/19 22:41 95 H 20 104/53 95 11/30/19 22:30 95 H 21 105/63 11/30/19 22:21 94 H 19 104/53 94 11/30/19 22:11 97 H 20 119/65 98 11/30/19 22:01 96 H 19 115/55 91 11/30/19 21:51 97 H 19 119/65 96 11/30/19 21:41 95 H 21 99/72 96 11/30/19 21:30 98 H 17 111/57 92 11/30/19 21:21 92 H 20 99/72 95 11/30/19 21:11 96 H 20 100/53 96 11/30/19 21:01 96 H 21 101/55 94 11/30/19 20:51 88 20 100/53 97 11/30/19 20:40 92 H 19 101/57 97 11/30/19 20:31 88 20 101/57 94 11/30/19 20:21 92 H 20 105/65 96 11/30/19 20:11 96 H 19 99/59 98 11/30/19 20:02 93 11/30/19 20:00 98.6 F 88 94 H 20 99/59 91 11/30/19 19:51 96 H 20 101/65 94 11/30/19 19:41 93 H 17 93/61 94 11/30/19 19:31 93 H 20 93/61 88 11/30/19 19:21 94 H 20 111/55 92 11/30/19 19:11 96 H 21 134/92 91 11/30/19 19:01 104 H 18 134/92 96 11/30/19 18:51 102 H 18 116/75 93 11/30/19 18:41 103 H 21 116/75 11/30/19 18:35 99 H 17 116/75 11/30/19 18:11 94 H 18 116/75 11/30/19 18:01 90 18 116/75 11/30/19 17:51 92 H 20 116/75 11/30/19 17:41 91 H 19 116/75 97 11/30/19 17:30 93 H 20 116/75 96 11/30/19 17:21 85 20 117/75 96 11/30/19 17:11 86 20 106/72 97 11/30/19 17:00 87 20 106/72 97 11/30/19 16:51 86 21 111/76 95 11/30/19 16:41 90 21 111/68 96 11/30/19 16:30 87 20 111/68 95 11/30/19 16:21 89 20 115/74 96 11/30/19 16:11 89 20 117/65 95 11/30/19 16:01 90 20 117/65 95 11/30/19 16:00 98.3 F 87 85 20 91 11/30/19 15:51 99 H 20 118/75 96 11/30/19 15:41 91 H 21 113/82 96 11/30/19 15:30 90 21 113/82 96 11/30/19 15:21 94 H 18 123/76 96 11/30/19 15:11 95 H 23 125/80 95 11/30/19 15:00 99 H 21 125/80 95 11/30/19 14:51 95 H 20 119/83 95 11/30/19 14:41 94 H 20 145/87 97 11/30/19 14:31 91 H 20 145/87 97 11/30/19 14:21 90 14 84/69 98 11/30/19 14:11 88 21 93/75 97 11/30/19 14:01 97 H 20 93/75 96 11/30/19 13:51 90 18 106/79 97 11/30/19 13:41 90 21 104/77 94 11/30/19 13:30 85 21 104/77 95 11/30/19 13:21 87 20 103/82 94 11/30/19 13:11 88 20 108/76 94 11/30/19 13:01 92 H 20 108/76 93 11/30/19 13:00 88 103/82 95 11/30/19 12:51 87 20 113/73 94 11/30/19 12:41 88 21 115/73 95 11/30/19 12:30 90 20 115/73 94 11/30/19 12:21 88 18 121/69 94 11/30/19 12:11 89 19 125/76 97 11/30/19 12:00 97.7 F 99 H 87 22 125/76 94 11/30/19 11:51 88 21 108/64 94 11/30/19 11:41 87 20 114/57 94 11/30/19 11:31 87 21 114/57 93 11/30/19 11:21 87 20 122/89 95 11/30/19 11:11 85 20 110/80 97 11/30/19 11:00 90 20 110/80 96 11/30/19 10:51 91 H 20 113/71 96 11/30/19 10:41 87 21 113/71 95 11/30/19 10:31 87 20 113/71 94 11/30/19 10:21 88 21 122/83 94 - Physical Examination General: Other (intubated) HEENT: Positive: PERRL Cardiac: Positive: Reg Rate and Rhythm
[2019-12-01] MEDS ORDERED: LORazepam 2 MG/ML VIAL IV PRN (10:23)
[2019-12-01] MEDS ORDERED: HALOPERIDOL LACTATE 5 MG/1 ML INJ IV PRN (10:23)
[2019-12-01] MEDS: FAMOTIDINE 20 MG TAB PO SCH ×2 (10:37→22:33)
[2019-12-01] MEDS ORDERED: AMIODARONE 150 MG in DEXTROSE 5% IN WATER 97 ML IV ONE ×2 (10:42→11:00)
--- NOTE | 2019-12-01 10:47 | Progress Note ---
Assessment and Plan Acute hypoxemic respiratory failure Bilateral pneumonia, community acquired. Acute congestive heart failure exacerbation. History of cerebrovascular accident. Acute chronic obstructive pulmonary disease exacerbation. Hypertension and hypertensive urgency at presentation. History of arthritis. Oropharyngeal dysphagia Urinary reteniton x2 overnight- will get bladder scan and reassess need fro Gregory catheter Start CIWA protocol Plce back on full support IV adenosine for SVT, when it broke, underlying rhythm was Atrial fibrillation- started amiodarone and RN to notify Cardiolgy Hold lasix fro 24 hours, was hypotensive with the tacyh-arrhythmia, required 2 fluid boluses to a total of 500ml - hold diuresis for 24 hours , while monitoring renal function, hemodynamics and electrolyte profile - continue to wean oxygen for O2 sats > 90% - continue bronchodilators with pulmonary hygiene per RT - VAP bundle addressed (Aspiration precautions, HOB >40) - continue to wean per pulmonary driven protocols - continue prn analgesia per CPOT score - follow clinically re: fever curves / trend WBC - Avoid delirium (no benzodiazepines if they can be avoided) - Enteral nutrition at goal rate as tolerated - continue accuchecks with glycemic control per SSI for target blood glucose goal of 140-180 mg/dL while critically ill; Avoid hypoglycemia - continue VTE prophylaxis with Heparin - continue stress ulcer prophylaxis with Famotidine - continue mobility protocols for pressure ulcer prophylaxis - continue fall precautions - continue wound care management per RN / WCT - Supportive transfusions as indicated to keep HgB>7g/dL - Continue to monitor neurologic function - Continue chronic home medications as clinically indicated - Continue all supportive care CONDITION: CRITICAL PROGNOSIS: GUARDED CODE STATUS: FULL CODE The high probability of a clinically significant, sudden or life threatening deterioration of the [Respiratory, cardiovascular & neurological] system(s) required my full and direct attention, intervention and personal management. The aggregate critical care time was [33] minutes without overlap. Time includes spent on [x] Data Review and interpretation [x] Patient assessment and monitoring of vital signs [x] Documentation [x] Medication orders and management Subjective Date of service: 12/01/19 Principal diagnosis: Ac hypoxemic resp failure; Pneumonia; PUI COVID-19; CHF; COPD; HTN Interval history: Patient is seen today for: Acute hypoxemic respiratory failure; Adan. Pneumonia (CAP); PUI COVID-19 infection; AE-CHF; AE-COPD; H/O CVA; HTN Seen and examined at bedside; 24 hour events reviewed; nursing and respiratory care staff consulted; no adverse overnight events reported to me; resting peacefully in bed; awake and alert, ETT in place. No asynchrony, Agitated last night, and this morning when placed on PSV- he endorses a history of drinking Objective Vital Signs - 12hr 11/30/19 11/30/19 11/30/19 22:51 23:01 23:10 Temperature Pulse Rate 100 H 101 H 105 H Pulse Rate [ From Monitor] Respiratory 20 21 20 Rate Blood Pressure 96/65 125/52 96/65 O2 Sat by Pulse 94 88 93 Oximetry 11/30/19 11/30/19 11/30/19 23:20 23:30 23:39 Temperature Pulse Rate 104 H 108 H 100 H Pulse Rate [ From Monitor] Respiratory 20 19 21 Rate Blood Pressure 93/67 112/64 112/64 O2 Sat by Pulse 93 93 Oximetry 11/30/19 11/30/19 11/30/19 23:40 23:44 23:47 Temperature Pulse Rate 101 H 101 H 102 H Pulse Rate [ From Monitor] Respiratory 20 20 Rate Blood Pressure 93/67 93/67 114/49 O2 Sat by Pulse 93 94 94 Oximetry 11/30/19 12/01/19 12/01/19 23:50 00:00 00:10 Temperature 98.5 F Pulse Rate 96 H 96 H 101 H Pulse Rate [ 94 H From Monitor] Respiratory 20 20 21 Rate Blood Pressure 114/49 88/57 112/64 O2 Sat by Pulse 94 91 95 Oximetry 12/01/19 12/01/19 12/01/19 00:20 00:30 00:40 Temperature Pulse Rate 98 H 99 H 98 H Pulse Rate [ From Monitor] Respiratory 20 20 20 Rate Blood Pressure 96/69 92/63 92/63 O2 Sat by Pulse 95 90 96 Oximetry 12/01/19 12/01/19 12/01/19 00:50 01:00 01:10 Temperature Pulse Rate 97 H 98 H 99 H Pulse Rate [ From Monitor] Respiratory 20 18 20 Rate Blood Pressure 95/58 113/58 95/58 O2 Sat by Pulse 96 89 96 Oximetry 12/01/19 12/01/19 12/01/19 01:20 01:30 01:40 Temperature Pulse Rate 99 H 99 H 96 H Pulse Rate [ From Monitor] Respiratory 22 21 21 Rate Blood Pressure 85/52 93/54 113/58 O2 Sat by Pulse 95 91 96 Oximetry 12/01/19 12/01/19 12/01/19 01:50 02:00 02:10 Temperature Pulse Rate 105 H 104 H 99 H Pulse Rate [ From Monitor] Respiratory 25 H 21 22 Rate Blood Pressure 92/60 100/54 100/54 O2 Sat by Pulse 97 91 92 Oximetry 12/01/19 12/01/19 12/01/19 02:20 02:30 02:40 Temperature Pulse Rate 102 H 98 H 96 H Pulse Rate [ From Monitor] Respiratory 22 21 22 Rate Blood Pressure 91/55 91/55 107/57 O2 Sat by Pulse 94 90 94 Oximetry 12/01/19 12/01/19 12/01/19 02:50 03:00 03:10 Temperature Pulse Rate 99 H 95 H 105 H Pulse Rate [ From Monitor] Respiratory 21 21 20 Rate Blood Pressure 104/52 103/50 103/50 O2 Sat by Pulse 94 90 95 Oximetry 12/01/19 12/01/19 12/01/19 03:20 03:30 03:40 Temperature Pulse Rate 99 H 103 H 96 H Pulse Rate [ From Monitor] Respiratory 20 20 20 Rate Blood Pressure 97/62 112/60 112/60 O2 Sat by Pulse 95 91 96 Oximetry 12/01/19 12/01/19 12/01/19 03:50 04:00 04:10 Temperature 98.2 F Pulse Rate 103 H 90 102 H Pulse Rate [ 94 H From Monitor] Respiratory 22 20 20 Rate Blood Pressure 97/56 86/65 86/65 O2 Sat by Pulse 96 91 96 Oximetry 12/01/19 12/01/19 12/01/19 04:20 04:30 04:40 Temperature Pulse Rate 94 H 102 H 95 H Pulse Rate [ From Monitor] Respiratory 20 20 21 Rate Blood Pressure 83/53 87/56 87/56 O2 Sat by Pulse 96 89 96 Oximetry 12/01/19 12/01/19 12/01/19 04:43 04:50 05:00 Temperature Pulse Rate 102 H 95 H 92 H Pulse Rate [ From Monitor] Respiratory 20 19 Rate Blood Pressure 114/49 90/55 95/56 O2 Sat by Pulse 94 96 90 Oximetry 12/01/19 12/01/19 12/01/19 05:10 05:20 05:30 Temperature Pulse Rate 94 H 95 H 90 Pulse Rate [ From Monitor] Respiratory 21 22 21 Rate Blood Pressure 95/56 93/62 103/64 O2 Sat by Pulse 97 95 90 Oximetry 12/01/19 12/01/19 12/01/19 05:40 05:50 06:00 Temperature Pulse Rate 93 H 96 H 94 H Pulse Rate [ From Monitor] Respiratory 20 20 20 Rate Blood Pressure 103/64 91/61 89/57 O2 Sat by Pulse 96 96 90 Oximetry 12/01/19 12/01/19 12/01/19 06:10 06:20 06:30 Temperature Pulse Rate 92 H 92 H 89 Pulse Rate [ From Monitor] Respiratory 20 20 20 Rate Blood Pressure 89/57 91/52 100/65 O2 Sat by Pulse 96 96 91 Oximetry 12/01/19 12/01/19 12/01/19 06:40 06:50 07:00 Temperature Pulse Rate 89 88 96 H Pulse Rate [ From Monitor] Respiratory 19 21 22 Rate Blood Pressure 100/65 101/68 91/62 O2 Sat by Pulse 97 96 88 Oximetry 12/01/19 12/01/19 12/01/19 07:10 07:20 07:27 Temperature Pulse Rate 94 H 99 H 102 H Pulse Rate [ From Monitor] Respiratory 25 H 23 Rate Blood Pressure 91/62 91/62 101/52 O2 Sat by Pulse 94 95 96 Oximetry 12/01/19 12/01/19 12/01/19 07:30 07:40 07:50 Temperature Pulse Rate 105 H 103 H 105 H Pulse Rate [ From Monitor] Respiratory 24 26 H 17 Rate Blood Pressure 116/49 116/49 101/53 O2 Sat by Pulse 90 94 95 Oximetry 12/01/19 12/01/19 12/01/19 08:00 08:10 08:20 Temperature 99.1 F Pulse Rate 110 H 102 H 102 H Pulse Rate [ From Monitor] Respiratory 25 H 23 23 Rate Blood Pressure 116/61 116/61 110/56 O2 Sat by Pulse 93 94 95 Oximetry 12/01/19 12/01/19 12/01/19 08:30 08:40 08:50 Temperature Pulse Rate 103 H 99 H 98 H Pulse Rate [ From Monitor] Respiratory 22 21 23 Rate Blood Pressure 102/57 102/57 97/65 O2 Sat by Pulse 89 95 94 Oximetry 12/01/19 12/01/19 12/01/19 09:00 09:10 09:51 Temperature Pulse Rate 105 H 100 H 94 H Pulse Rate [ From Monitor] Respiratory 22 22 Rate Blood Pressure 103/66 103/66 95/62 O2 Sat by Pulse 89 95 95 Oximetry Constitutional: agitated, appears uncomfortable, other (elderly and obese male, normocephalic with increased respiratory effort at rest on MVS) Eyes: non-icteric ENT: oropharynx moist, other (ETT 24 cm JASON) Neck: supple, no JVD Effort: very labored Ascultation: Bilateral: clear, diminished breath sounds, rhonchi Percussion: Bilateral: not dull Cardiovascular: regular rate and rhythm (tachycardia to the 140s) Gastrointestinal: normoactive bowel sounds, soft, non-tender, non-distended Integumentary: normal Extremities: no cyanosis, no edema, pulses normal, no ischemia or petechiae Neurologic: non-focal exam (moves all extremities with extreme agitation) Psychiatric: mood appropriate, affect normal, anxious CBC and BMP: 12/02/19 05:16 12/02/19 05:16 ABG, PT/INR, D-dimer: ABG ABG pH 7.447 pH Units (7.350-7.450) 11/30/19 04:56 POC ABG pCO2 44.2 mmHg (32.0-48.0) 11/28/19 05:00 ABG pCO2 43.4 mm Hg 11/30/19 04:56 POC ABG pO2 68.1 mmHg (83-108) L 11/28/19 05:00 ABG pO2 56.3 mm Hg (80.0-90.0) L 11/30/19 04:56 POC ABG HCO3 29.6 11/28/19 05:00 ABG O2 Saturation 91.5 % (95.0-99.0) L 11/30/19 04:56 PT/INR, D-dimer PT 12.7 Sec. (12.2-14.9) 11/25/19 05:11 INR 0.94 (0.87-1.13) 11/25/19 05:11 Abnormal lab findings: Abnormal Labs 11/24/19 11/24/19 11/24/19 02:53 02:53 03:45 WBC 14.3 H RDW 17.2 H Lymph % (Auto) [place] % (Auto) [place] # Seg Neutrophils % Seg Neutrophils # Seg Neutrophils # Man 8.3 H Monocytes # (Manual) 0.9 H ABG pH 7.313 L POC ABG pO2 ABG pO2 102.8 H ABG HCO3 ABG O2 Saturation ABG Base Excess -2.9 L ABG Hemoglobin ABG Oxyhemoglobin Oxyhemoglobin 93.9 L Sodium BUN Glucose 195 H POC Glucose Lactic Acid Lactate Dehydrogenase CK-MB (CK-2) 4.3 H NT-Pro-B Natriuret Pep 1181 H Albumin 11/24/19 11/24/19 11/24/19 04:53 04:53 10:37 WBC RDW Lymph % (Auto) [place] % (Auto) [place] # Seg Neutrophils % Seg Neutrophils # Seg Neutrophils # Man Monocytes # (Manual) ABG pH POC ABG pO2 ABG pO2 ABG HCO3 ABG O2 Saturation ABG Base Excess ABG Hemoglobin ABG Oxyhemoglobin Oxyhemoglobin Sodium BUN Glucose 162 H POC Glucose Lactic Acid 2.40 H* 2.50 H* Lactate Dehydrogenase 240 H CK-MB (CK-2) NT-Pro-B Natriuret Pep Albumin 11/24/19 11/24/19 11/24/19 12:21 14:50 19:54 WBC RDW Lymph % (Auto) [place] % (Auto) [place] # Seg Neutrophils % Seg Neutrophils # Seg Neutrophils # Man Monocytes # (Manual) ABG pH POC ABG pO2 ABG pO2 ABG HCO3 ABG O2 Saturation ABG Base Excess ABG Hemoglobin ABG Oxyhemoglobin Oxyhemoglobin Sodium BUN Glucose POC Glucose 145 H 143 H 124 H Lactic Acid Lactate Dehydrogenase CK-MB (CK-2) NT-Pro-B Natriuret Pep Albumin 11/25/19 11/25/19 11/25/19 00:18 03:18 05:11 WBC 13.7 H RDW 17.1 H Lymph % (Auto) 10.8 L [place] % (Auto) 8.7 H [place] # 1.2 H Seg Neutrophils % 80.2 H Seg Neutrophils # 11.0 H Seg Neutrophils # Man Monocytes # (Manual) ABG pH 7.333 L POC ABG pO2 ABG pO2 61.2 L ABG HCO3 ABG O2 Saturation 90.2 L ABG Base Excess ABG Hemoglobin 13.7 L ABG Oxyhemoglobin Oxyhemoglobin 88.2 L Sodium BUN Glucose POC Glucose 109 H Lactic Acid Lactate Dehydrogenase CK-MB (CK-2) NT-Pro-B Natriuret Pep Albumin 11/25/19 11/25/19 11/26/19 05:11 11:40 03:12 WBC RDW Lymph % (Auto) [place] % (Auto) [place] # Seg Neutrophils % Seg Neutrophils # Seg Neutrophils # Man Monocytes # (Manual) ABG pH POC ABG pO2 ABG pO2 155.1 H ABG HCO3 27.8 H ABG O2 Saturation ABG Base Excess ABG Hemoglobin 12.2 L ABG Oxyhemoglobin Oxyhemoglobin Sodium BUN 23 H Glucose 110 H POC Glucose 108 H Lactic Acid Lactate Dehydrogenase CK-MB (CK-2) NT-Pro-B Natriuret Pep Albumin 11/26/19 11/26/19 11/26/19 06:17 10:43 10:43 WBC 11.4 H RDW 17.1 H Lymph % (Auto) [place] % (Auto) [place] # Seg Neutrophils % Seg Neutrophils # Seg Neutrophils # Man Monocytes # (Manual) ABG pH POC ABG pO2 ABG pO2 ABG HCO3 ABG O2 Saturation ABG Base Excess ABG Hemoglobin ABG Oxyhemoglobin Oxyhemoglobin Sodium BUN 29 H Glucose POC Glucose 107 H Lactic Acid Lactate Dehydrogenase CK-MB (CK-2) NT-Pro-B Natriuret Pep Albumin 11/26/19 11/27/19 11/27/19 17:11 01:53 04:11 WBC RDW Lymph % (Auto) [place] % (Auto) [place] # Seg Neutrophils % Seg Neutrophils # Seg Neutrophils # Man Monocytes # (Manual) ABG pH POC ABG pO2 ABG pO2 ABG HCO3 29.2 H ABG O2 Saturation ABG Base Excess 3.4 H ABG Hemoglobin 13.3 L ABG Oxyhemoglobin Oxyhemoglobin 94.5 L Sodium BUN Glucose POC Glucose 113 H 108 H Lactic Acid Lactate Dehydrogenase CK-MB (CK-2) NT-Pro-B Natriuret Pep Albumin 11/27/19 11/28/19 11/28/19 05:27 05:00 05:25 WBC RDW Lymph % (Auto) [place] % (Auto) [place] # Seg Neutrophils % Seg Neutrophils # Seg Neutrophils # Man Monocytes # (Manual) ABG pH POC ABG pO2 68.1 L ABG pO2 ABG HCO3 ABG O2 Saturation ABG Base Excess ABG Hemoglobin ABG Oxyhemoglobin 91.2 L Oxyhemoglobin Sodium BUN Glucose POC Glucose 111 H 110 H Lactic Acid Lactate Dehydrogenase CK-MB (CK-2) NT-Pro-B Natriuret Pep Albumin 11/28/19 11/28/19 11/28/19 12:08 13:47 13:47 WBC 11.3 H RDW 16.1 H Lymph % (Auto) [place] % (Auto) 9.9 H [place] # 1.1 H Seg Neutrophils % 71.4 H Seg Neutrophils # 8.1 H Seg Neutrophils # Man Monocytes # (Manual) ABG pH POC ABG pO2 ABG pO2 ABG HCO3 ABG O2 Saturation ABG Base Excess ABG Hemoglobin ABG Oxyhemoglobin Oxyhemoglobin Sodium BUN 23 H Glucose 123 H POC Glucose 112 H Lactic Acid Lactate Dehydrogenase CK-MB (CK-2) NT-Pro-B Natriuret Pep Albumin 3.7 L 11/28/19 11/29/19 11/29/19 17:26 03:55 17:04 WBC RDW Lymph % (Auto) [place] % (Auto) [place] # Seg Neutrophils % Seg Neutrophils # Seg Neutrophils # Man Monocytes # (Manual) ABG pH POC ABG pO2 ABG pO2 65.7 L ABG HCO3 28.3 H ABG O2 Saturation 93.9 L ABG Base Excess 3.6 H ABG Hemoglobin 13.3 L ABG Oxyhemoglobin Oxyhemoglobin 91.5 L Sodium BUN Glucose POC Glucose 123 H 119 H Lactic Acid Lactate Dehydrogenase CK-MB (CK-2) NT-Pro-B Natriuret Pep Albumin 11/30/19 11/30/19 11/30/19 04:17 04:17 04:56 WBC 13.4 H RDW 15.6 H Lymph % (Auto) [place] % (Auto) [place] # Seg Neutrophils % Seg Neutrophils # Seg Neutrophils # Man Monocytes # (Manual) ABG pH POC ABG pO2 ABG pO2 56.3 L ABG HCO3 29.3 H ABG O2 Saturation 91.5 L ABG Base Excess 4.7 H ABG Hemoglobin 12.1 L ABG Oxyhemoglobin Oxyhemoglobin 89.2 L Sodium 147 H BUN 30 H Glucose 124 H POC Glucose Lactic Acid Lactate Dehydrogenase CK-MB (CK-2) NT-Pro-B Natriuret Pep Albumin 3.8 L 11/30/19 11/30/19 11/30/19 05:51 11:54 18:17 WBC RDW Lymph % (Auto) [place] % (Auto) [place] # Seg Neutrophils % Seg Neutrophils # Seg Neutrophils # Man Monocytes # (Manual) ABG pH POC ABG pO2 ABG pO2 ABG HCO3 ABG O2 Saturation ABG Base Excess ABG Hemoglobin ABG Oxyhemoglobin Oxyhemoglobin Sodium BUN Glucose POC Glucose 127 H 115 H 143 H Lactic Acid Lactate Dehydrogenase CK-MB (CK-2) NT-Pro-B Natriuret Pep Albumin 12/01/19 12/01/19 01:18 05:22 WBC RDW Lymph % (Auto) [place] % (Auto) [place] # Seg Neutrophils % Seg Neutrophils # Seg Neutrophils # Man Monocytes # (Manual) ABG pH POC ABG pO2 ABG pO2 ABG HCO3 ABG O2 Saturation ABG Base Excess ABG Hemoglobin ABG Oxyhemoglobin Oxyhemoglobin Sodium BUN Glucose POC Glucose 118 H 148 H Lactic Acid Lactate Dehydrogenase CK-MB (CK-2) NT-Pro-B Natriuret Pep Albumin Chest x-ray: image reviewed Allied health notes reviewed: RT
--- NOTE | 2019-12-01 10:48 | Event Note ---
Date: 12/01/19 Extreme agitation when placed on PSV- Afib with RVR, hypertension. Patietn acknowledged that he drinks. Placed back on full support. IV Ativan given, CIWA protocol initiated. 12 lead ordered, one dose of amiodarone ordered
[2019-12-01] MEDS ORDERED: ADENOSINE 6 MG/2 ML INJ ONE ×2 (10:57→11:39)
[2019-12-01] MEDS ORDERED: SODIUM CHLORIDE 0.9% 1000 ML 1,000 ML ONE (11:09)
[2019-12-01] MEDS ORDERED: SODIUM CHLORIDE 0.9% 500 ML 500 ML ONE (11:33)
--- NOTE | 2019-12-01 11:41 | Event Note ---
Date: 11/24/19 12 lead shows SVT IV adenosine to be administered once IV access is established
[2019-12-01] MEDS ORDERED: AMIODARONE 900 MG in DEXTROSE 5% IN WATER 482 ML IV SCH (12:00)
--- NOTE | 2019-12-01 12:18 | Progress Note ---
Assessment and Plan Acute hypoxemic respiratory failure Bilateral pneumonia, community acquired, - COVID 19 NEGATIVE Aspiration Pneumonia Acute congestive heart failure exacerbation Presumed systolic History of cerebrovascular accident. Tobacco use disorder Alcohol abuse with DT Acute chronic obstructive pulmonary disease exacerbation. Hypertension and hypertensive urgency at presentation. History of arthritis. Leukocytosis with possible sepsis. Lactic acidosis. Oropharyngeal dysphagia S/P Knee surgery History of peptic Ulcer Surgery Plan Continue supportive care Wean from vent as tolerated Continue ceftriaxone 2 gm IV qday and azithromycin 500 mg PO qday fot total 5 days per ID cont Steroids, Repeat Covid 19 test negative Continue diuresis Aspiration precautions DVT/GI prophy Discussed with family The high probability of a clinically significant, sudden or life threatening deterioration of the [Respiratory, cardiovascular & neurological] system(s) required my full and direct attention, intervention and personal management. The aggregate critical care time was [35] minutes without overlap. Time includes spent on [x] Data Review and interpretation [x] Patient assessment and monitoring of vital signs [x] Documentation [x] Medication orders and management Brief History Patient is a 64-year-old male with known history of hypertension, COPD, history of coronary artery disease, CHF with ejection fraction of 20 to 25% in August 2018 presenting to the emergency room via EMS complaining of shortness of breath. Patient was found to be hypoxic and in respiratory distress. Patient was placed on CPAP in route to the hospital. Oxygen saturation was said to be 88%. Started on Solu-Medrol, Lasix and magnesium in ED, patient was also found to be lethargic with an oxygen saturation of about 91% on CPAP. He was subsequently intubated. Work-up in the emergency room including chest x-ray reveals bilateral pneumonia. He had an elevated white count of 14 and also had an elevated BNP. Patient to be admitted to the ICU and placed on empiric IV antibiotics for pneumonia. He will also be tested for COVID-19 and placed on isolation precautions. 11/25: Leukocytosis improving. Continue current management anticipate extubation possible today. 11/26. Still intubated. Failed SBT yesterday. Repeat COVID-19 test is negative. 11/27. CT head ordered for possible neuro status change is negative. More responsive as the day progressed as per RN. Chest xray today shows interval improvement. He is still on antibiotics - will complete regimen today. 11/28: Considering difficult extubation and severe cardiomyopathy, will obtain cardiology consult. Aspiration precautions, tube feeds held, continue antibiotics. 11/29: Still with intermittent fever but improving imaging, continue diuresis. 11/30; Extremely agitated when placed on PSV- SVT, hypertension. Patiet acknowledged that he drinks. IV Ativan given, CIWA protocol initiated. 12 lead ordered showed SVT, one dose of amiodarone ordered. continue to follow up cardiology recommendation Subjective Date of service: 12/01/19 Principal diagnosis: Ac hypoxemic resp failure; Pneumonia; PUI COVID-19; CHF; COPD; HTN Interval history: Patient seen and examined Patient intubated on mechanical ventilation Noted SVT on telemetry Getting cardioverted Discussed with critical care attending at the bedside Objective - Exam Narrative Exam: General appearance: Present: well-nourished, other (Intubated), opens eyes to names and follows minor command - EENT Eyes: Present: PERRL, EOM intact. Absent: scleral icterus ENT: clear oral mucosa, dentition normal - Neck Neck: Present: supple, normal ROM - Respiratory Respiratory effort: normal, mechanical ventilation Respiratory: bilateral: rales - Cardiovascular Rhythm: regular Heart Sounds: Present: S1 & S2, tachycardic. Absent: gallop, systolic murmur, diastolic murmur, rub - Extremities Extremities: no ischemia, pulses intact, pulses symmetrical, No edema, Full ROM Peripheral Pulses: within normal limits - Abdominal General gastrointestinal: Present: soft, non-tender, non-distended, normal bowel sounds. Absent: mass - Integumentary Integumentary: Present: clear, warm, dry. Absent: rash - Musculoskeletal Musculoskeletal: no joint swelling - Psychiatric Psychiatric: sedated Neurology: no focal deficits - Constitutional Vitals: Vital Signs - 12hr 12/01/19 12/01/19 12/01/19 00:20 00:30 00:40 Temperature Pulse Rate 98 H 99 H 98 H Pulse Rate [ From Monitor] Respiratory 20 20 20 Rate Blood Pressure 96/69 92/63 92/63 O2 Sat by Pulse 95 90 96 Oximetry 12/01/19 12/01/19 12/01/19 00:50 01:00 01:10 Temperature Pulse Rate 97 H 98 H 99 H Pulse Rate [ From Monitor] Respiratory 20 18 20 Rate Blood Pressure 95/58 113/58 95/58 O2 Sat by Pulse 96 89 96 Oximetry 12/01/19 12/01/19 12/01/19 01:20 01:30 01:40 Temperature Pulse Rate 99 H 99 H 96 H Pulse Rate [ From Monitor] Respiratory 22 21 21 Rate Blood Pressure 85/52 93/54 113/58 O2 Sat by Pulse 95 91 96 Oximetry 12/01/19 12/01/19 12/01/19 01:50 02:00 02:10 Temperature Pulse Rate 105 H 104 H 99 H Pulse Rate [ From Monitor] Respiratory 25 H 21 22 Rate Blood Pressure 92/60 100/54 100/54 O2 Sat by Pulse 97 91 92 Oximetry 12/01/19 12/01/19 12/01/19 02:20 02:30 02:40 Temperature Pulse Rate 102 H 98 H 96 H Pulse Rate [ From Monitor] Respiratory 22 21 22 Rate Blood Pressure 91/55 91/55 107/57 O2 Sat by Pulse 94 90 94 Oximetry 12/01/19 12/01/19 12/01/19 02:50 03:00 03:10 Temperature Pulse Rate 99 H 95 H 105 H Pulse Rate [ From Monitor] Respiratory 21 21 20 Rate Blood Pressure 104/52 103/50 103/50 O2 Sat by Pulse 94 90 95 Oximetry 12/01/19 12/01/19 12/01/19 03:20 03:30 03:40 Temperature Pulse Rate 99 H 103 H 96 H Pulse Rate [ From Monitor] Respiratory 20 20 20 Rate Blood Pressure 97/62 112/60 112/60 O2 Sat by Pulse 95 91 96 Oximetry 12/01/19 12/01/19 12/01/19 03:50 04:00 04:10 Temperature 98.2 F Pulse Rate 103 H 90 102 H Pulse Rate [ 94 H From Monitor] Respiratory 22 20 20 Rate Blood Pressure 97/56 86/65 86/65 O2 Sat by Pulse 96 91 96 Oximetry 12/01/19 12/01/19 12/01/19 04:20 04:30 04:40 Temperature Pulse Rate 94 H 102 H 95 H Pulse Rate [ From Monitor] Respiratory 20 20 21 Rate Blood Pressure 83/53 87/56 87/56 O2 Sat by Pulse 96 89 96 Oximetry 12/01/19 12/01/19 12/01/19 04:43 04:50 05:00 Temperature Pulse Rate 102 H 95 H 92 H Pulse Rate [ From Monitor] Respiratory 20 19 Rate Blood Pressure 114/49 90/55 95/56 O2 Sat by Pulse 94 96 90 Oximetry 12/01/19 12/01/19 12/01/19 05:10 05:20 05:30 Temperature Pulse Rate 94 H 95 H 90 Pulse Rate [ From Monitor] Respiratory 21 22 21 Rate Blood Pressure 95/56 93/62 103/64 O2 Sat by Pulse 97 95 90 Oximetry 12/01/19 12/01/19 12/01/19 05:40 05:50 06:00 Temperature Pulse Rate 93 H 96 H 94 H Pulse Rate [ From Monitor] Respiratory 20 20 20 Rate Blood Pressure 103/64 91/61 89/57 O2 Sat by Pulse 96 96 90 Oximetry 12/01/19 12/01/19 12/01/19 06:10 06:20 06:30 Temperature Pulse Rate 92 H 92 H 89 Pulse Rate [ From Monitor] Respiratory 20 20 20 Rate Blood Pressure 89/57 91/52 100/65 O2 Sat by Pulse 96 96 91 Oximetry 12/01/19 12/01/19 12/01/19 06:40 06:50 07:00 Temperature Pulse Rate 89 88 96 H Pulse Rate [ From Monitor] Respiratory 19 21 22 Rate Blood Pressure 100/65 101/68 91/62 O2 Sat by Pulse 97 96 88 Oximetry 12/01/19 12/01/19 12/01/19 07:10 07:20 07:27 Temperature Pulse Rate 94 H 99 H 102 H Pulse Rate [ From Monitor] Respiratory 25 H 23 Rate Blood Pressure 91/62 91/62 101/52 O2 Sat by Pulse 94 95 96 Oximetry 12/01/19 12/01/19 12/01/19 07:30 07:40 07:50 Temperature Pulse Rate 105 H 103 H 105 H Pulse Rate [ From Monitor] Respiratory 24 26 H 17 Rate Blood Pressure 116/49 116/49 101/53 O2 Sat by Pulse 90 94 95 Oximetry 12/01/19 12/01/19 12/01/19 08:00 08:10 08:20 Temperature 99.1 F Pulse Rate 110 H 102 H 102 H Pulse Rate [ From Monitor] Respiratory 25 H 23 23 Rate Blood Pressure 116/61 116/61 110/56 O2 Sat by Pulse 93 94 95 Oximetry 12/01/19 12/01/19 12/01/19 08:30 08:40 08:50 Temperature Pulse Rate 103 H 99 H 98 H Pulse Rate [ From Monitor] Respiratory 22 21 23 Rate Blood Pressure 102/57 102/57 97/65 O2 Sat by Pulse 89 95 94 Oximetry 12/01/19 12/01/19 12/01/19 09:00 09:10 09:51 Temperature Pulse Rate 105 H 100 H 94 H Pulse Rate [ From Monitor] Respiratory 22 22 Rate Blood Pressure 103/66 103/66 95/62 O2 Sat by Pulse 89 95 95 Oximetry - Labs CBC & Chem 7: 12/02/19 05:16 12/02/19 05:16 Labs: Abnormal lab results 11/28/19 11/30/19 12/01/19 Range/Units 12:08 18:17 01:18 POC Glucose 112 H 143 H 118 H (70-105) 12/01/19 Range/Units 05:22 POC Glucose 148 H (70-105) HEART Score - HEART Score Troponin: Troponin T < 0.010 ng/mL (0.00-0.029) 11/24/19 02:53
--- NOTE | 2019-12-01 12:24 | Progress Note ---
Assessment and Plan Cultures: Blood culture 11/24/2019 pending Urine culture 11/24/2019 pending COVID-19 negative x2 A/P: 64-year-old male past medical history hypertension, COPD, CAD, CHF with reduced ejection fraction admitted with acute hypoxic respiratory failure likely secondary to pneumonia #Acute hypoxemic respiratory failure: Likely secondary to pneumonia, COVID-19 testing negative so far. Currently intubated. #Bilateral pneumonia: COVID-19 negative twice. Procalcitonin negative, as such most likely a viral pneumonia. Given negative COVID-19 twice, most likely similar viral pneumonia. #CHF #COPD Recs: -Completed antibiotics Thank you for the consult, we will continue to follow. Michael Wade MD [facility] ([facility]) M: [phone] O: [phone] F: [phone] Subjective Date of service: 12/01/19 Principal diagnosis: Ac hypoxemic resp failure; Pneumonia; PUI COVID-19; CHF; COPD; HTN Interval history: Afebrile, white count 13.4. Remains mechanically ventilated Objective - Exam Narrative Exam: Physical Exam: Constitutional: Intubated, sedated Head, Ears, Nose: Normocephalic, atraumatic. Eyes: Conjunctivae/corneas clear. No icterus. No ptosis. Neck: Intubated Oral: Intubated Cardiovascular: S1, S2 normal. Respiratory: Good air entry, clear to auscultation bilaterally GI: Soft, non-tender; bowel sounds normal. No peritoneal signs. Musculoskeletal: No pedal edema, no cyanosis. Skin: No rash or abscess Hem/Lymphatic: No palpable cervical or supraclavicular nodes. No lymphangitis Psych: Sedated Neurological: Sedated - Constitutional Vitals: Vital Signs Temp Pulse Resp BP Pulse Ox 99.1 F 94 H 22 95/62 95 12/01/19 08:00 12/01/19 09:51 12/01/19 09:10 12/01/19 09:51 12/01/19 09:51 Temperature -Last 24 Hours Temperature 99.1 F Temperature 98.2 F Temperature 98.5 F Temperature 98.6 F Temperature 98.3 F - Labs CBC & Chem 7: 11/30/19 04:17 11/30/19 04:17 Labs: Abnormal lab results 11/28/19 11/30/19 12/01/19 Range/Units 12:08 18:17 01:18 POC Glucose 112 H 143 H 118 H (70-105) 12/01/19 Range/Units 05:22 POC Glucose 148 H (70-105)
[2019-12-01 12:40] LABS: Alanine Aminotransferase 60 units/L (7-56); Albumin 2.8 g/dL (3.9-5); BUN/Creatinine Ratio 41; Blood Urea Nitrogen 37 mg/dL (9-20); Hemolysis Index 5
[2019-12-01] MEDS ORDERED: ADENOSINE 6 MG/2 ML INJ IV ONE ×2 (12:40→12:41)
[2019-12-01] MEDS ORDERED: SODIUM CHLORIDE 0.9% 1000 ML 1,000 ML IV ONE (12:44)
[2019-12-01 12:49] LABS: Calcium 8.2 mg/dL (8.4-10.2)
[2019-12-01] MEDS: QUEtiapine 100 MG TAB PO SCH (22:33)
[2019-12-02 06:06] LABS: Basophils # (Auto) 0.1 K/mm3 (0.0-0.1); Basophils % (Auto) 0.8 % (0.0-1.8); Eosinophils # (Auto) 0.4 K/mm3 (0.0-0.4); Eosinophils % (Auto) 3.4 % (0.0-4.3); Hematocrit 37.8 % (35.5-45.6); Lymphocytes # (Auto) 1.8 K/mm3 (1.2-5.4); Lymphocytes % (Auto) 15.6 % (13.4-35.0); Mean Corpuscular HGB Conc 32 % (32-34); Mean Corpuscular Volume 92 fl (84-94); Monocytes # (Auto) 1.1 K/mm3 (0.0-0.8); Monocytes % (Auto) 9.9 % (0.0-7.3); Platelet Count 190 K/mm3 (140-440); Red Blood Count 4.13 M/mm3 (3.65-5.03); Red Cell Distribution Width 15.9 % (13.2-15.2)
[2019-12-02] MEDS: HEPARIN 5,000 UNIT/1 ML VIAL SUB-Q SCH ×3 (06:07→22:09)
[2019-12-02 06:25] LABS: BUN/Creatinine Ratio 28; Blood Urea Nitrogen 28 mg/dL (9-20); Calcium 9.4 mg/dL (8.4-10.2); Hemolysis Index 0
--- NOTE | 2019-12-02 09:05 | Progress Note ---
Assessment and Plan Acute hypoxemic respiratory failure Bilateral pneumonia, community acquired. Acute congestive heart failure exacerbation. History of cerebrovascular accident. Acute chronic obstructive pulmonary disease exacerbation. Hypertension and hypertensive urgency at presentation. History of arthritis. Oropharyngeal dysphagia Hoffman catheter in place, will re-address in 24 hours Fevers, without leukocytosis. If any further temperature spikes, plan to get cultures. Continue CIWA protocol Resume PSV trials today- discussed with RT - hold diuresis for 24 hours , while monitoring renal function, hemodynamics and electrolyte profile - continue to wean oxygen for O2 sats > 90% - continue bronchodilators with pulmonary hygiene per RT - VAP bundle addressed (Aspiration precautions, HOB >40) - continue to wean per pulmonary driven protocols - continue prn analgesia per CPOT score - follow clinically re: fever curves / trend WBC - Avoid delirium (no benzodiazepines if they can be avoided) - Enteral nutrition at goal rate as tolerated - continue accuchecks with glycemic control per SSI for target blood glucose goal of 140-180 mg/dL while critically ill; Avoid hypoglycemia - continue VTE prophylaxis with Heparin - continue stress ulcer prophylaxis with Famotidine - continue mobility protocols for pressure ulcer prophylaxis - continue fall precautions - continue wound care management per RN / WCT - Supportive transfusions as indicated to keep HgB>7g/dL - Continue to monitor neurologic function - Continue chronic home medications as clinically indicated - Continue all supportive care CONDITION: CRITICAL PROGNOSIS: GUARDED CODE STATUS: FULL CODE The high probability of a clinically significant, sudden or life threatening deterioration of the [Respiratory, cardiovascular & neurological] system(s) required my full and direct attention, intervention and personal management. The aggregate critical care time was [33] minutes without overlap. Time includes spent on [x] Data Review and interpretation [x] Patient assessment and monitoring of vital signs [x] Documentation [x] Medication orders and management Subjective Date of service: 12/02/19 Principal diagnosis: Ac hypoxemic resp failure; Pneumonia; PUI COVID-19; CHF; COPD; HTN Interval history: Patient is seen today for: Acute hypoxemic respiratory failure; Adan. Pneumonia (CAP); PUI COVID-19 infection; AE-CHF; AE-COPD; H/O CVA; HTN Seen and examined at bedside; 24 hour events reviewed; nursing and respiratory care staff consulted; no adverse overnight events reported to me; resting peacefully in bed; awake and alert, ETT in place. No asynchrony, On Fentanyl at 1mcg, amiodarone at 0.5mg continuous infusion. High grade fever overnight Objective Vital Signs - 12hr 12/01/19 12/01/19 12/01/19 21:15 21:30 21:45 Temperature Pulse Rate 90 90 85 Pulse Rate [ From Monitor] Respiratory Rate Blood Pressure 110/68 116/72 107/66 O2 Sat by Pulse 94 94 95 Oximetry 12/01/19 12/01/19 12/01/19 22:00 22:15 22:30 Temperature Pulse Rate 86 87 88 Pulse Rate [ From Monitor] Respiratory Rate Blood Pressure 110/69 112/72 114/74 O2 Sat by Pulse 95 95 95 Oximetry 12/01/19 12/01/19 12/01/19 22:45 23:00 23:04 Temperature Pulse Rate 89 96 H 94 H Pulse Rate [ From Monitor] Respiratory Rate Blood Pressure 109/69 117/75 117/75 O2 Sat by Pulse 96 96 95 Oximetry 12/01/19 12/01/19 12/01/19 23:15 23:30 23:45 Temperature Pulse Rate 111 H 95 H 95 H Pulse Rate [ From Monitor] Respiratory Rate Blood Pressure 128/80 110/68 106/69 O2 Sat by Pulse 94 94 95 Oximetry 12/02/19 12/02/19 12/02/19 00:00 00:10 00:15 Temperature 98.7 F Pulse Rate 92 H 90 92 H Pulse Rate [ 90 From Monitor] Respiratory 20 Rate Blood Pressure 104/65 103/65 105/68 O2 Sat by Pulse 95 96 95 Oximetry 12/02/19 12/02/19 12/02/19 00:30 00:45 01:00 Temperature Pulse Rate 92 H 90 92 H Pulse Rate [ From Monitor] Respiratory Rate Blood Pressure 106/67 103/65 106/67 O2 Sat by Pulse 96 96 96 Oximetry 12/02/19 12/02/19 12/02/19 01:15 01:30 01:45 Temperature Pulse Rate 96 H 92 H 90 Pulse Rate [ From Monitor] Respiratory Rate Blood Pressure 107/68 104/66 104/67 O2 Sat by Pulse 96 96 96 Oximetry 12/02/19 12/02/19 12/02/19 02:00 02:15 02:30 Temperature Pulse Rate 91 H 89 89 Pulse Rate [ From Monitor] Respiratory Rate Blood Pressure 103/65 101/64 103/66 O2 Sat by Pulse 96 96 96 Oximetry 12/02/19 12/02/19 12/02/19 02:45 03:00 03:15 Temperature Pulse Rate 93 H 96 H 94 H Pulse Rate [ From Monitor] Respiratory Rate Blood Pressure 105/66 105/71 111/68 O2 Sat by Pulse 96 96 96 Oximetry 12/02/19 12/02/19 12/02/19 03:30 03:45 04:00 Temperature 99.3 F Pulse Rate 91 H 89 92 H Pulse Rate [ 90 From Monitor] Respiratory 20 Rate Blood Pressure 104/66 105/65 108/70 O2 Sat by Pulse 96 96 95 Oximetry 12/02/19 12/02/19 12/02/19 04:15 04:30 04:45 Temperature Pulse Rate 92 H 93 H 90 Pulse Rate [ From Monitor] Respiratory Rate Blood Pressure 108/66 108/65 106/66 O2 Sat by Pulse 96 96 96 Oximetry 12/02/19 12/02/19 12/02/19 05:00 05:15 05:30 Temperature Pulse Rate 90 90 90 Pulse Rate [ From Monitor] Respiratory Rate Blood Pressure 104/66 102/67 103/67 O2 Sat by Pulse 96 95 96 Oximetry 12/02/19 12/02/19 12/02/19 05:43 05:45 06:00 Temperature Pulse Rate 91 H 91 H 91 H Pulse Rate [ From Monitor] Respiratory Rate Blood Pressure 104/67 104/67 105/67 O2 Sat by Pulse 96 96 95 Oximetry 12/02/19 06:15 Temperature Pulse Rate 92 H Pulse Rate [ From Monitor] Respiratory Rate Blood Pressure 106/63 O2 Sat by Pulse 96 Oximetry Constitutional: agitated, appears uncomfortable, other (elderly and obese male, normocephalic with increased respiratory effort at rest on MVS) Eyes: non-icteric ENT: oropharynx moist, other (ETT 24 cm JASON) Neck: supple, no JVD Effort: very labored Ascultation: Bilateral: clear, diminished breath sounds, rhonchi Percussion: Bilateral: not dull Cardiovascular: regular rate and rhythm (tachycardia to the 140s) Gastrointestinal: normoactive bowel sounds, soft, non-tender, non-distended Integumentary: normal Extremities: no cyanosis, no edema, pulses normal, no ischemia or petechiae Neurologic: non-focal exam (moves all extremities with extreme agitation) Psychiatric: mood appropriate, affect normal, anxious CBC and BMP: 12/02/19 05:16 12/02/19 05:16 ABG, PT/INR, D-dimer: ABG ABG pH 7.447 pH Units (7.350-7.450) 11/30/19 04:56 POC ABG pCO2 44.2 mmHg (32.0-48.0) 11/28/19 05:00 ABG pCO2 43.4 mm Hg 11/30/19 04:56 POC ABG pO2 68.1 mmHg (83-108) L 11/28/19 05:00 ABG pO2 56.3 mm Hg (80.0-90.0) L 11/30/19 04:56 POC ABG HCO3 29.6 11/28/19 05:00 ABG O2 Saturation 91.5 % (95.0-99.0) L 11/30/19 04:56 PT/INR, D-dimer PT 12.7 Sec. (12.2-14.9) 11/25/19 05:11 INR 0.94 (0.87-1.13) 11/25/19 05:11 Abnormal lab findings: Abnormal Labs 11/24/19 11/24/19 11/24/19 02:53 02:53 03:45 WBC 14.3 H RDW 17.2 H Lymph % (Auto) [place] % (Auto) [place] # Seg Neutrophils % Seg Neutrophils # Seg Neutrophils # Man 8.3 H Monocytes # (Manual) 0.9 H ABG pH 7.313 L POC ABG pO2 ABG pO2 102.8 H ABG HCO3 ABG O2 Saturation ABG Base Excess -2.9 L ABG Hemoglobin ABG Oxyhemoglobin Oxyhemoglobin 93.9 L Sodium Potassium Chloride BUN Glucose 195 H POC Glucose Lactic Acid Calcium AST ALT Lactate Dehydrogenase CK-MB (CK-2) 4.3 H C-Reactive Protein NT-Pro-B Natriuret Pep 1181 H Total Protein Albumin 11/24/19 11/24/19 11/24/19 04:53 04:53 10:37 WBC RDW Lymph % (Auto) [place] % (Auto) [place] # Seg Neutrophils % Seg Neutrophils # Seg Neutrophils # Man Monocytes # (Manual) ABG pH POC ABG pO2 ABG pO2 ABG HCO3 ABG O2 Saturation ABG Base Excess ABG Hemoglobin ABG Oxyhemoglobin Oxyhemoglobin Sodium Potassium Chloride BUN Glucose 162 H POC Glucose Lactic Acid 2.40 H* 2.50 H* Calcium AST ALT Lactate Dehydrogenase 240 H CK-MB (CK-2) C-Reactive Protein NT-Pro-B Natriuret Pep Total Protein Albumin 11/24/19 11/24/19 11/24/19 12:21 14:50 19:54 WBC RDW Lymph % (Auto) [place] % (Auto) [place] # Seg Neutrophils % Seg Neutrophils # Seg Neutrophils # Man Monocytes # (Manual) ABG pH POC ABG pO2 ABG pO2 ABG HCO3 ABG O2 Saturation ABG Base Excess ABG Hemoglobin ABG Oxyhemoglobin Oxyhemoglobin Sodium Potassium Chloride BUN Glucose POC Glucose 145 H 143 H 124 H Lactic Acid Calcium AST ALT Lactate Dehydrogenase CK-MB (CK-2) C-Reactive Protein NT-Pro-B Natriuret Pep Total Protein Albumin 11/25/19 11/25/19 11/25/19 00:18 03:18 05:11 WBC 13.7 H RDW 17.1 H Lymph % (Auto) 10.8 L [place] % (Auto) 8.7 H [place] # 1.2 H Seg Neutrophils % 80.2 H Seg Neutrophils # 11.0 H Seg Neutrophils # Man Monocytes # (Manual) ABG pH 7.333 L POC ABG pO2 ABG pO2 61.2 L ABG HCO3 ABG O2 Saturation 90.2 L ABG Base Excess ABG Hemoglobin 13.7 L ABG Oxyhemoglobin Oxyhemoglobin 88.2 L Sodium Potassium Chloride BUN Glucose POC Glucose 109 H Lactic Acid Calcium AST ALT Lactate Dehydrogenase CK-MB (CK-2) C-Reactive Protein NT-Pro-B Natriuret Pep Total Protein Albumin 11/25/19 11/25/19 11/26/19 05:11 11:40 03:12 WBC RDW Lymph % (Auto) [place] % (Auto) [place] # Seg Neutrophils % Seg Neutrophils # Seg Neutrophils # Man Monocytes # (Manual) ABG pH POC ABG pO2 ABG pO2 155.1 H ABG HCO3 27.8 H ABG O2 Saturation ABG Base Excess ABG Hemoglobin 12.2 L ABG Oxyhemoglobin Oxyhemoglobin Sodium Potassium Chloride BUN 23 H Glucose 110 H POC Glucose 108 H Lactic Acid Calcium AST ALT Lactate Dehydrogenase CK-MB (CK-2) C-Reactive Protein NT-Pro-B Natriuret Pep Total Protein Albumin 11/26/19 11/26/19 11/26/19 06:17 10:43 10:43 WBC 11.4 H RDW 17.1 H Lymph % (Auto) [place] % (Auto) [place] # Seg Neutrophils % Seg Neutrophils # Seg Neutrophils # Man Monocytes # (Manual) ABG pH POC ABG pO2 ABG pO2 ABG HCO3 ABG O2 Saturation ABG Base Excess ABG Hemoglobin ABG Oxyhemoglobin Oxyhemoglobin Sodium Potassium Chloride BUN 29 H Glucose POC Glucose 107 H Lactic Acid Calcium AST ALT Lactate Dehydrogenase CK-MB (CK-2) C-Reactive Protein NT-Pro-B Natriuret Pep Total Protein Albumin 11/26/19 11/27/19 11/27/19 17:11 01:53 04:11 WBC RDW Lymph % (Auto) [place] % (Auto) [place] # Seg Neutrophils % Seg Neutrophils # Seg Neutrophils # Man Monocytes # (Manual) ABG pH POC ABG pO2 ABG pO2 ABG HCO3 29.2 H ABG O2 Saturation ABG Base Excess 3.4 H ABG Hemoglobin 13.3 L ABG Oxyhemoglobin Oxyhemoglobin 94.5 L Sodium Potassium Chloride BUN Glucose POC Glucose 113 H 108 H Lactic Acid Calcium AST ALT Lactate Dehydrogenase CK-MB (CK-2) C-Reactive Protein NT-Pro-B Natriuret Pep Total Protein Albumin 11/27/19 11/28/19 11/28/19 05:27 05:00 05:25 WBC RDW Lymph % (Auto) [place] % (Auto) [place] # Seg Neutrophils % Seg Neutrophils # Seg Neutrophils # Man Monocytes # (Manual) ABG pH POC ABG pO2 68.1 L ABG pO2 ABG HCO3 ABG O2 Saturation ABG Base Excess ABG Hemoglobin ABG Oxyhemoglobin 91.2 L Oxyhemoglobin Sodium Potassium Chloride BUN Glucose POC Glucose 111 H 110 H Lactic Acid Calcium AST ALT Lactate Dehydrogenase CK-MB (CK-2) C-Reactive Protein NT-Pro-B Natriuret Pep Total Protein Albumin 11/28/19 11/28/19 11/28/19 12:08 13:47 13:47 WBC 11.3 H RDW 16.1 H Lymph % (Auto) [place] % (Auto) 9.9 H [place] # 1.1 H Seg Neutrophils % 71.4 H Seg Neutrophils # 8.1 H Seg Neutrophils # Man Monocytes # (Manual) ABG pH POC ABG pO2 ABG pO2 ABG HCO3 ABG O2 Saturation ABG Base Excess ABG Hemoglobin ABG Oxyhemoglobin Oxyhemoglobin Sodium Potassium Chloride BUN 23 H Glucose 123 H POC Glucose 112 H Lactic Acid Calcium AST ALT Lactate Dehydrogenase CK-MB (CK-2) C-Reactive Protein NT-Pro-B Natriuret Pep Total Protein Albumin 3.7 L 11/28/19 11/29/19 11/29/19 17:26 03:55 17:04 WBC RDW Lymph % (Auto) [place] % (Auto) [place] # Seg Neutrophils % Seg Neutrophils # Seg Neutrophils # Man Monocytes # (Manual) ABG pH POC ABG pO2 ABG pO2 65.7 L ABG HCO3 28.3 H ABG O2 Saturation 93.9 L ABG Base Excess 3.6 H ABG Hemoglobin 13.3 L ABG Oxyhemoglobin Oxyhemoglobin 91.5 L Sodium Potassium Chloride BUN Glucose POC Glucose 123 H 119 H Lactic Acid Calcium AST ALT Lactate Dehydrogenase CK-MB (CK-2) C-Reactive Protein NT-Pro-B Natriuret Pep Total Protein Albumin 11/30/19 11/30/19 11/30/19 04:17 04:17 04:56 WBC 13.4 H RDW 15.6 H Lymph % (Auto) [place] % (Auto) [place] # Seg Neutrophils % Seg Neutrophils # Seg Neutrophils # Man Monocytes # (Manual) ABG pH POC ABG pO2 ABG pO2 56.3 L ABG HCO3 29.3 H ABG O2 Saturation 91.5 L ABG Base Excess 4.7 H ABG Hemoglobin 12.1 L ABG Oxyhemoglobin Oxyhemoglobin 89.2 L Sodium 147 H Potassium Chloride BUN 30 H Glucose 124 H POC Glucose Lactic Acid Calcium AST ALT Lactate Dehydrogenase CK-MB (CK-2) C-Reactive Protein NT-Pro-B Natriuret Pep Total Protein Albumin 3.8 L 11/30/19 11/30/19 11/30/19 05:51 11:54 18:17 WBC RDW Lymph % (Auto) [place] % (Auto) [place] # Seg Neutrophils % Seg Neutrophils # Seg Neutrophils # Man Monocytes # (Manual) ABG pH POC ABG pO2 ABG pO2 ABG HCO3 ABG O2 Saturation ABG Base Excess ABG Hemoglobin ABG Oxyhemoglobin Oxyhemoglobin Sodium Potassium Chloride BUN Glucose POC Glucose 127 H 115 H 143 H Lactic Acid Calcium AST ALT Lactate Dehydrogenase CK-MB (CK-2) C-Reactive Protein NT-Pro-B Natriuret Pep Total Protein Albumin 12/01/19 12/01/19 12/01/19 01:18 05:22 12:16 WBC RDW Lymph % (Auto) [place] % (Auto) [place] # Seg Neutrophils % Seg Neutrophils # Seg Neutrophils # Man Monocytes # (Manual) ABG pH POC ABG pO2 ABG pO2 ABG HCO3 ABG O2 Saturation ABG Base Excess ABG Hemoglobin ABG Oxyhemoglobin Oxyhemoglobin Sodium Potassium 3.5 L Chloride 107.8 H BUN 37 H Glucose 157 H POC Glucose 118 H 148 H Lactic Acid Calcium 8.2 L D AST 48 H ALT 60 H Lactate Dehydrogenase 194 H CK-MB (CK-2) C-Reactive Protein 8.50 H NT-Pro-B Natriuret Pep Total Protein 5.5 L Albumin 2.8 L 12/01/19 12/02/19 12/02/19 18:04 00:05 05:16 WBC 11.4 H RDW 15.9 H Lymph % (Auto) [place] % (Auto) 9.9 H [place] # 1.1 H Seg Neutrophils % 70.3 H Seg Neutrophils # 8.0 H Seg Neutrophils # Man Monocytes # (Manual) ABG pH POC ABG pO2 ABG pO2 ABG HCO3 ABG O2 Saturation ABG Base Excess ABG Hemoglobin ABG Oxyhemoglobin Oxyhemoglobin Sodium Potassium Chloride BUN Glucose POC Glucose 143 H 107 H Lactic Acid Calcium AST ALT Lactate Dehydrogenase CK-MB (CK-2) C-Reactive Protein NT-Pro-B Natriuret Pep Total Protein Albumin 12/02/19 12/02/19 05:16 06:03 WBC RDW Lymph % (Auto) [place] % (Auto) [place] # Seg Neutrophils % Seg Neutrophils # Seg Neutrophils # Man Monocytes # (Manual) ABG pH POC ABG pO2 ABG pO2 ABG HCO3 ABG O2 Saturation ABG Base Excess ABG Hemoglobin ABG Oxyhemoglobin Oxyhemoglobin Sodium 146 H Potassium Chloride BUN 28 H Glucose 123 H POC Glucose 110 H Lactic Acid Calcium AST ALT Lactate Dehydrogenase CK-MB (CK-2) C-Reactive Protein NT-Pro-B Natriuret Pep Total Protein Albumin Allied health notes reviewed: RT
--- NOTE | 2019-12-02 10:06 | Progress Note ---
Assessment and Plan Multifocal pneumonia with intermittent fevers negative COVID-19 test Transient Afib after a trial of CPAP currently in sinus rhythm Ischemic Cardiomyopathy, resolving re-echo this presentation reports an LVEF 40-45%. echo 08/2018: decreased LVEF 20-25%. Hx of CAD [facility] 12/2018: mild in-stent restenosis. No significant residual disease. Subjective Date of service: 12/02/19 Principal diagnosis: Ac hypoxemic resp failure; Pneumonia; PUI COVID-19; CHF; COPD; HTN Interval history: Patient remains intubated. Yesterday, the patient had transient atrial fibrillation as he was placed on CPAP trial by respiratory therapist. He was placed on intravenous amiodarone and has since reverted back to a stable sinus rhythm. Objective Vital Signs Temp Pulse Pulse Resp BP Pulse Ox 12/02/19 09:45 96 H 116/72 96 12/02/19 09:30 94 H 113/71 96 12/02/19 09:15 93 H 113/71 96 12/02/19 09:00 93 H 115/70 95 12/02/19 08:45 94 H 114/69 95 12/02/19 08:30 95 H 114/70 95 12/02/19 08:17 92 H 115/70 96 12/02/19 08:15 90 111/67 95 12/02/19 08:00 101.4 F H 91 H 110/72 95 12/02/19 07:45 90 109/66 95 12/02/19 07:30 92 H 116/72 95 12/02/19 07:15 92 H 107/66 95 12/02/19 07:00 92 H 108/68 95 12/02/19 06:45 91 H 105/66 96 12/02/19 06:30 91 H 103/64 96 12/02/19 06:15 92 H 106/63 96 12/02/19 06:00 91 H 105/67 95 12/02/19 05:45 91 H 104/67 96 12/02/19 05:43 91 H 104/67 96 12/02/19 05:30 90 103/67 96 12/02/19 05:15 90 102/67 95 12/02/19 05:00 90 104/66 96 12/02/19 04:45 90 106/66 96 12/02/19 04:30 93 H 108/65 96 12/02/19 04:15 92 H 108/66 96 12/02/19 04:00 99.3 F 92 H 90 20 108/70 95 12/02/19 03:45 89 105/65 96 12/02/19 03:30 91 H 104/66 96 12/02/19 03:15 94 H 111/68 96 12/02/19 03:00 96 H 105/71 96 12/02/19 02:45 93 H 105/66 96 12/02/19 02:30 89 103/66 96 12/02/19 02:15 89 101/64 96 12/02/19 02:00 91 H 103/65 96 12/02/19 01:45 90 104/67 96 12/02/19 01:30 92 H 104/66 96 12/02/19 01:15 96 H 107/68 96 12/02/19 01:00 92 H 106/67 96 12/02/19 00:45 90 103/65 96 12/02/19 00:30 92 H 106/67 96 12/02/19 00:15 92 H 105/68 95 12/02/19 00:10 90 103/65 96 12/02/19 00:00 98.7 F 92 H 90 20 104/65 95 12/01/19 23:45 95 H 106/69 95 12/01/19 23:30 95 H 110/68 94 12/01/19 23:15 111 H 128/80 94 12/01/19 23:04 94 H 117/75 95 12/01/19 23:00 96 H 117/75 96 12/01/19 22:45 89 109/69 96 12/01/19 22:30 88 114/74 95 12/01/19 22:15 87 112/72 95 12/01/19 22:00 86 110/69 95 12/01/19 21:45 85 107/66 95 12/01/19 21:30 90 116/72 94 12/01/19 21:15 90 110/68 94 12/01/19 21:00 91 H 111/71 95 12/01/19 20:45 93 H 107/68 93 12/01/19 20:30 95 H 116/69 90 12/01/19 20:16 114 H 158/94 98 12/01/19 20:00 98.8 F 88 95 H 20 111/65 96 12/01/19 19:45 88 113/69 89 12/01/19 19:30 87 104/63 93 12/01/19 19:15 88 114/64 90 12/01/19 19:00 91 H 108/69 90 12/01/19 18:45 92 H 106/67 96 12/01/19 18:30 90 101/64 95 12/01/19 18:15 87 103/62 95 12/01/19 18:00 86 97/61 94 12/01/19 17:45 86 96/62 94 12/01/19 17:30 84 99/59 94 12/01/19 17:15 86 93/62 93 12/01/19 17:10 86 99/61 93 12/01/19 17:00 85 99/61 94 12/01/19 16:45 89 96/61 94 12/01/19 16:30 87 100/62 94 12/01/19 16:15 89 94/61 94 12/01/19 16:00 99.2 F 90 87 20 92/57 94 08 15:45 88 101/63 94 12/01/19 15:30 87 94/59 94 12/01/19 15:15 88 97/63 95 12/01/19 15:00 88 91/59 95 12/01/19 14:45 90 90/60 95 12/01/19 14:30 93 H 87/64 95 12/01/19 14:15 90 95/62 96 12/01/19 14:00 97 H 98/64 96 12/01/19 13:45 96 H 91/63 96 12/01/19 13:30 98 H 89/63 98 12/01/19 13:16 106 H 89/52 95 12/01/19 13:00 104 H 81/54 94 12/01/19 12:45 103 H 83/55 92 12/01/19 12:30 118 H 79/57 98 12/01/19 12:19 128 H 84/53 97 12/01/19 12:15 125 H 80/57 99 12/01/19 12:00 136 H 141 H 26 H 78/55 100 12/01/19 11:46 127 H 73/45 100 12/01/19 11:30 153 H 89/56 92 12/01/19 11:16 154 H 93/61 98 12/01/19 11:00 167 H 93/61 96 12/01/19 10:45 171 H 116/53 87 12/01/19 10:30 131 H 123/13 88 12/01/19 10:16 112 H 104/56 97 - Physical Examination General: Other (intubated on the vent) HEENT: Positive: PERRL Neck: Positive: neck supple Cardiac: Positive: Reg Rate and Rhythm Abdomen: Positive: Soft - Labs and Meds Cardiac Enzymes 12/01/19 Range/Units 12:16 AST 48 H (5-40) units/L Lactate Dehydrogenase 194 H (91-180) units/L CBC 12/02/19 Range/Units 05:16 WBC 11.4 H (4.5-11.0) K/mm3 RBC 4.13 (3.65-5.03) M/mm3 Hgb 12.0 (11.8-15.2) gm/dl Hct 37.8 (35.5-45.6) % Plt Count 190 (140-440) K/mm3 Lymph # 1.8 (1.2-5.4) K/mm3 [place] # 1.1 H (0.0-0.8) K/mm3 Eos # 0.4 (0.0-0.4) K/mm3 Baso # 0.1 (0.0-0.1) K/mm3 Comprehensive Metabolic Panel 12/01/19 12/02/19 Range/Units 12:16 05:16 Sodium 145 146 H (137-145) mmol/L Potassium 3.5 L 3.8 (3.6-5.0) mmol/L Chloride 107.8 H 106.9 (98-107) mmol/L Carbon Dioxide 26 29 (22-30) mmol/L BUN 37 H 28 H (9-20) mg/dL Creatinine 0.9 1.0 (0.8-1.3) mg/dL Glucose 157 H 123 H (75-100) mg/dL Calcium 8.2 L D 9.4 (8.4-10.2) mg/dL AST 48 H (5-40) units/L ALT 60 H (7-56) units/L Alkaline Phosphatase 45 (35-129) units/L Total Protein 5.5 L (6.3-8.2) g/dL Albumin 2.8 L (3.9-5) g/dL - Allied health notes Allied health notes reviewed: RT
[2019-12-02] MEDS: FAMOTIDINE 20 MG TAB PO SCH ×2 (10:15→22:10)
[2019-12-02] MEDS: ACETAMINOPHEN 325 MG/10.15 ML ORAL LIQD UNIT DOSE FEEDTUBE PRN ×2 (10:15→18:23)
[2019-12-02] MEDS: AMIODARONE 200 MG TAB PO SCH (13:00)
[2019-12-02] MEDS ORDERED: FUROSEMIDE 40 MG/4 ML INJ IV ONE (13:00)
[2019-12-02] MEDS: METOPROLOL TARTRATE 5 MG/5 ML INJ IV SCH ×2 (13:15→18:25)
[2019-12-02] MEDS: fentaNYL DRIP Premix 2,000 MCG/100 ML BAG IV SCH ×2 (14:22→22:54)
--- NOTE | 2019-12-02 15:20 | Progress Note ---
Assessment and Plan Cultures: Blood culture 11/24/2019 pending Urine culture 11/24/2019 pending COVID-19 negative x2 A/P: 64-year-old male past medical history hypertension, COPD, CAD, CHF with reduced ejection fraction admitted with acute hypoxic respiratory failure likely secondary to pneumonia #Acute hypoxemic respiratory failure: Likely secondary to pneumonia, COVID-19 testing negative so far. Currently intubated. #Bilateral pneumonia: COVID-19 negative twice. Procalcitonin elevated, and new fevers. We will start empiric antibiotics #CHF #COPD Recs: -Recurrent fevers and new elevated procalcitonin. -Ordered sputum cultures -Start empiric cefepime 2 g every 8 hours. Thank you for the consult, we will continue to follow. Michael Wade MD [facility] ([facility]) M: [phone] O: [phone] F: [phone] Subjective Date of service: 12/02/19 Principal diagnosis: Ac hypoxemic resp failure; Pneumonia; PUI COVID-19; CHF; COPD; HTN Interval history: Febrile to 102.2 with a white count of 11.4 which is stable from previous. Remains intubated. Objective - Exam Narrative Exam: Physical Exam: Constitutional: Intubated, sedated Head, Ears, Nose: Normocephalic, atraumatic. Eyes: Conjunctivae/corneas clear. No icterus. No ptosis. Neck: Intubated Oral: Intubated Cardiovascular: S1, S2 normal. Respiratory: Good air entry, clear to auscultation bilaterally GI: Soft, non-tender; bowel sounds normal. No peritoneal signs. Musculoskeletal: No pedal edema, no cyanosis. Skin: No rash or abscess Hem/Lymphatic: No palpable cervical or supraclavicular nodes. No lymphangitis Psych: Sedated Neurological: Sedated - Constitutional Vitals: Vital Signs Temp Pulse Resp BP Pulse Ox 102.2 F H 107 H 20 111/77 100 12/02/19 12:00 12/02/19 14:15 12/02/19 04:00 12/02/19 14:15 12/02/19 14:15 Temperature -Last 24 Hours Temperature 102.2 F Temperature 101.4 F Temperature 99.3 F Temperature 98.7 F Temperature 98.8 F Temperature 99.2 F - Labs CBC & Chem 7: 12/02/19 05:16 12/02/19 05:16 Labs: Abnormal lab results 12/01/19 12/02/19 12/02/19 Range/Units 18:04 00:05 05:16 WBC 11.4 H (4.5-11.0) K/mm3 RDW 15.9 H (13.2-15.2) % [place] % (Auto) 9.9 H (0.0-7.3) % [place] # 1.1 H (0.0-0.8) K/mm3 Seg Neutrophils % 70.3 H (40.0-70.0) % Seg Neutrophils # 8.0 H (1.8-7.7) K/mm3 Sodium (137-145) mmol/L BUN (9-20) mg/dL Glucose (75-100) mg/dL POC Glucose 143 H 107 H (70-105) 12/02/19 12/02/19 12/02/19 Range/Units 05:16 06:03 11:52 WBC (4.5-11.0) K/mm3 RDW (13.2-15.2) % [place] % (Auto) (0.0-7.3) % [place] # (0.0-0.8) K/mm3 Seg Neutrophils % (40.0-70.0) % Seg Neutrophils # (1.8-7.7) K/mm3 Sodium 146 H (137-145) mmol/L BUN 28 H (9-20) mg/dL Glucose 123 H (75-100) mg/dL POC Glucose 110 H 152 H (70-105)
--- NOTE | 2019-12-02 16:09 | Progress Note ---
Assessment and Plan Acute hypoxemic respiratory failure Bilateral pneumonia, community acquired, - COVID 19 NEGATIVE Aspiration Pneumonia Sustained SVT Acute congestive heart failure exacerbation Presumed systolic History of cerebrovascular accident. Tobacco use disorder Alcohol abuse with DT Acute chronic obstructive pulmonary disease exacerbation. Hypertension and hypertensive urgency at presentation. History of arthritis. Leukocytosis with possible sepsis. Lactic acidosis. Oropharyngeal dysphagia S/P Knee surgery History of peptic Ulcer Surgery Plan Continue supportive care Wean from vent as tolerated Continue ceftriaxone 2 gm IV qday and azithromycin 500 mg PO qday fot total 5 days per ID cont Steroids, Repeat Covid 19 test negative Continue diuresis Aspiration precautions DVT/GI prophy Discussed with family The high probability of a clinically significant, sudden or life threatening deterioration of the [Respiratory, cardiovascular & neurological] system(s) required my full and direct attention, intervention and personal management. The aggregate critical care time was [35] minutes without overlap. Time includes spent on [x] Data Review and interpretation [x] Patient assessment and monitoring of vital signs [x] Documentation [x] Medication orders and management Brief History Patient is a 64-year-old male with known history of hypertension, COPD, history of coronary artery disease, CHF with ejection fraction of 20 to 25% in August 2018 presenting to the emergency room via EMS complaining of shortness of breath. Patient was found to be hypoxic and in respiratory distress. Patient was placed on CPAP in route to the hospital. Oxygen saturation was said to be 88%. Started on Solu-Medrol, Lasix and magnesium in ED, patient was also found to be lethargic with an oxygen saturation of about 91% on CPAP. He was subsequently intubated. Work-up in the emergency room including chest x-ray reveals bilateral pneumonia. He had an elevated white count of 14 and also had an elevated BNP. Patient to be admitted to the ICU and placed on empiric IV antibiotics for pneumonia. He will also be tested for COVID-19 and placed on isolation preca utions. 11/25: Leukocytosis improving. Continue current management anticipate extubation possible today. 11/26. Still intubated. Failed SBT yesterday. Repeat COVID-19 test is negative. 11/27. CT head ordered for possible neuro status change is negative. More responsive as the day progressed as per RN. Chest xray today shows interval improvement. He is still on antibiotics - will complete regimen today. 11/28: Considering difficult extubation and severe cardiomyopathy, will obtain cardiology consult. Aspiration precautions, tube feeds held, continue antibiotics. 11/29: Still with intermittent fever but improving imaging, continue diuresis. 11/30; Extremely agitated when placed on PSV- SVT, hypertension. Patiet acknowledged that he drinks. IV Ativan given, CIWA protocol initiated. 12 lead ordered showed SVT, one dose of amiodarone ordered. continue to follow up cardiology recommendation 12/01: Patient remains on mechanical ventilation, getting SBT trial. Remains in SVT, started on amiodarone drip by cardiology. Subjective Date of service: 12/02/19 Principal diagnosis: Ac hypoxemic resp failure; Pneumonia; PUI COVID-19; CHF; COPD; HTN Interval history: Patient seen and examined Patient intubated on mechanical ventilation Noted SVT on telemetry on amioderone drip Discussed with critical care attending at the bedside Objective - Exam Narrative Exam: General appearance: Present: well-nourished, other (Intubated), opens eyes to names and follows minor command - EENT Eyes: Present: PERRL, EOM intact. Absent: scleral icterus ENT: clear oral mucosa, dentition normal - Neck Neck: Present: supple, normal ROM - Respiratory Respiratory effort: normal, mechanical ventilation Respiratory: bilateral: rales - Cardiovascular Rhythm: regular Heart Sounds: Present: S1 & S2, tachycardic. Absent: gallop, systolic murmur, diastolic murmur, rub - Extremities Extremities: no ischemia, pulses intact, pulses symmetrical, No edema, Full ROM Peripheral Pulses: within normal limits - Abdominal General gastrointestinal: Present: soft, non-tender, non-distended, normal bowel sounds. Absent: mass - Integumentary Integumentary: Present: clear, warm, dry. Absent: rash - Musculoskeletal Musculoskeletal: no joint swelling - Psychiatric Psychiatric: sedated Neurology: no focal deficits - Constitutional Vitals: Vital Signs - 12hr 12/02/19 12/02/19 12/02/19 04:15 04:30 04:45 Temperature Pulse Rate 92 H 93 H 90 Blood Pressure 108/66 108/65 106/66 O2 Sat by Pulse 96 96 96 Oximetry 12/02/19 12/02/19 12/02/19 05:00 05:15 05:30 Temperature Pulse Rate 90 90 90 Blood Pressure 104/66 102/67 103/67 O2 Sat by Pulse 96 95 96 Oximetry 12/02/19 12/02/19 12/02/19 05:43 05:45 06:00 Temperature Pulse Rate 91 H 91 H 91 H Blood Pressure 104/67 104/67 105/67 O2 Sat by Pulse 96 96 95 Oximetry 12/02/19 12/02/19 12/02/19 06:15 06:30 06:45 Temperature Pulse Rate 92 H 91 H 91 H Blood Pressure 106/63 103/64 105/66 O2 Sat by Pulse 96 96 96 Oximetry 12/02/19 12/02/19 12/02/19 07:00 07:15 07:30 Temperature Pulse Rate 92 H 92 H 92 H Blood Pressure 108/68 107/66 116/72 O2 Sat by Pulse 95 95 95 Oximetry 12/02/19 12/02/19 12/02/19 07:45 08:00 08:15 Temperature 101.4 F H Pulse Rate 90 91 H 90 Blood Pressure 109/66 110/72 111/67 O2 Sat by Pulse 95 95 95 Oximetry 12/02/19 12/02/19 12/02/19 08:17 08:30 08:45 Temperature Pulse Rate 92 H 95 H 94 H Blood Pressure 115/70 114/70 114/69 O2 Sat by Pulse 96 95 95 Oximetry 12/02/19 12/02/19 12/02/19 09:00 09:15 09:30 Temperature Pulse Rate 93 H 93 H 94 H Blood Pressure 115/70 113/71 113/71 O2 Sat by Pulse 95 96 96 Oximetry 12/02/19 12/02/19 12/02/19 09:45 10:00 10:15 Temperature Pulse Rate 96 H 99 H 98 H Blood Pressure 116/72 116/75 105/75 O2 Sat by Pulse 96 96 96 Oximetry 12/02/19 12/02/19 12/02/19 10:30 10:45 11:00 Temperature Pulse Rate 103 H 107 H 104 H Blood Pressure 109/76 132/80 128/80 O2 Sat by Pulse 97 98 97 Oximetry 12/02/19 12/02/19 12/02/19 11:15 11:30 11:45 Temperature Pulse Rate 99 H 103 H 100 H Blood Pressure 129/77 127/82 119/76 O2 Sat by Pulse 97 97 97 Oximetry 12/02/19 12/02/19 12/02/19 12:00 12:15 12:25 Temperature 102.2 F H Pulse Rate 99 H 99 H 99 H Blood Pressure 122/75 125/77 130/81 O2 Sat by Pulse 98 97 97 Oximetry 12/02/19 12/02/19 12/02/19 12:30 12:45 13:00 Temperature Pulse Rate 101 H 97 H 105 H Blood Pressure 130/81 118/73 126/89 O2 Sat by Pulse 97 99 100 Oximetry 12/02/19 12/02/19 12/02/19 13:15 13:30 13:45 Temperature Pulse Rate 97 H 100 H 178 H Blood Pressure 124/75 132/84 132/84 O2 Sat by Pulse 98 98 99 Oximetry 12/02/19 12/02/19 12/02/19 13:59 14:00 14:15 Temperature Pulse Rate 131 H 132 H 107 H Blood Pressure 157/108 111/77 O2 Sat by Pulse 100 100 100 Oximetry - Labs CBC & Chem 7: 12/02/19 05:16 12/02/19 05:16 Labs: Abnormal lab results 12/01/19 12/02/19 12/02/19 Range/Units 18:04 00:05 05:16 WBC 11.4 H (4.5-11.0) K/mm3 RDW 15.9 H (13.2-15.2) % Bacon % (Auto) 9.9 H (0.0-7.3) % Bacon # 1.1 H (0.0-0.8) K/mm3 Seg Neutrophils % 70.3 H (40.0-70.0) % Seg Neutrophils # 8.0 H (1.8-7.7) K/mm3 POC ABG pO2 (83-108) mmHg Sodium (137-145) mmol/L BUN (9-20) mg/dL Glucose (75-100) mg/dL POC Glucose 143 H 107 H (70-105) 12/02/19 12/02/19 12/02/19 Range/Units 05:16 06:03 11:52 WBC (4.5-11.0) K/mm3 RDW (13.2-15.2) % Bacon % (Auto) (0.0-7.3) % Bacon # (0.0-0.8) K/mm3 Seg Neutrophils % (40.0-70.0) % Seg Neutrophils # (1.8-7.7) K/mm3 POC ABG pO2 (83-108) mmHg Sodium 146 H (137-145) mmol/L BUN 28 H (9-20) mg/dL Glucose 123 H (75-100) mg/dL POC Glucose 110 H 152 H (70-105) 12/02/19 Range/Units 12:58 WBC (4.5-11.0) K/mm3 RDW (13.2-15.2) % Bacon % (Auto) (0.0-7.3) % Bacon # (0.0-0.8) K/mm3 Seg Neutrophils % (40.0-70.0) % Seg Neutrophils # (1.8-7.7) K/mm3 POC ABG pO2 78.1 L (83-108) mmHg Sodium (137-145) mmol/L BUN (9-20) mg/dL Glucose (75-100) mg/dL POC Glucose (70-105) HEART Score - HEART Score Troponin: Troponin T < 0.010 ng/mL (0.00-0.029) 11/24/19 02:53
[2019-12-02] MEDS: CEFEPIME/NS 2 GM/100 ML 2 GM/100 ML BAG IV SCH ×2 (18:26→22:10)
[2019-12-02] MEDS ORDERED: DOCUSATE SODIUM 100 MG CAP PO SCH (22:00)
[2019-12-02] MEDS: QUEtiapine 100 MG TAB PO SCH (22:10)
[2019-12-03] MEDS: ACETAMINOPHEN 325 MG/10.15 ML ORAL LIQD UNIT DOSE FEEDTUBE PRN ×2 (00:11→19:49)
[2019-12-03] MEDS: DOCUSATE SODIUM 100 MG/10 ML ORAL LIQD FEEDTUBE SCH ×3 (00:11→21:45)
[2019-12-03] MEDS: METOPROLOL TARTRATE 5 MG/5 ML INJ IV SCH ×4 (00:11→17:34)
[2019-12-03] MEDS: HEPARIN 5,000 UNIT/1 ML VIAL SUB-Q SCH ×3 (05:44→21:45)
[2019-12-03] MEDS: CEFEPIME/NS 2 GM/100 ML 2 GM/100 ML BAG IV SCH ×3 (05:44→21:44)
[2019-12-03 06:27] LABS: Bacteria,Urine 1+ /HPF (Negative); Bilirubin,Urine NEG (Negative); Blood,Urine NEG (Negative); Color,Urine Amber (Yellow); Mucus,Urine 1+ /HPF; Protein,Urine <15 mg/dL mg/dL (Negative)
--- NOTE | 2019-12-03 08:43 | Progress Note ---
Assessment and Plan Assessment and plan: Patient is a 64-year-old male with known history of hypertension, COPD, history of coronary artery disease, CHF with ejection fraction of 20 to 25% in August 2018 presenting to the emergency room via EMS complaining of shortness of breath. Patient was found to be hypoxic and in respiratory distress. Patient was placed on CPAP in route to the hospital. Oxygen saturation was said to be 88%. Started on Solu-Medrol, Lasix and magnesium in ED, patient was also found to be lethargic with an oxygen saturation of about 91% on CPAP. He was subsequently intubated. Work-up in the emergency room including chest x-ray reveals bilateral pneumonia. He had an elevated white count of 14 and also had an elevated BNP. Patient to be admitted to the ICU and placed on empiric IV antibiotics for pneumonia. Acute hypoxemic respiratory failure Bilateral pneumonia, community acquired, - COVID 19 NEGATIVE Aspiration Pneumonia Sustained SVT Acute congestive heart failure exacerbation Presumed systolic History of cerebrovascular accident. Tobacco use disorder Alcohol abuse with DT Acute chronic obstructive pulmonary disease exacerbation. Hypertension and hypertensive urgency at presentation. History of arthritis. Leukocytosis with possible sepsis. Lactic acidosis. Oropharyngeal dysphagia S/P Knee surgery History of peptic Ulcer Surgery Plan Continue supportive care Wean from vent as tolerated Continue ceftriaxone 2 gm IV qday and azithromycin 500 mg PO qday fot total 5 days per ID cont Steroids, Repeat Covid 19 test negative Continue diuresis Aspiration precautions DVT/GI prophy Discussed with family The high probability of a clinically significant, sudden or life threatening deterioration of the [Respiratory, cardiovascular & neurological] system(s) required my full and direct attention, intervention and personal management. The aggregate critical care time was [35] minutes without overlap. Time includes spent on [x] Data Review and interpretation [x] Patient assessment and monitoring of vital signs [x] Documentation [x] Medication orders and management 11/25: Leukocytosis improving. Continue current management anticipate extubation possible today. 11/26. Still intubated. Failed SBT yesterday. Repeat COVID-19 test is negative. 11/27. CT head ordered for possible neuro status change is negative. More responsive as the day progressed as per RN. Chest xray today shows interval improvement. He is still on antibiotics - will complete regimen today. 11/28: Considering difficult extubation and severe cardiomyopathy, will obtain cardiology consult. Aspiration precautions, tube feeds held, continue antibiotics. 11/29: Still with intermittent fever but improving imaging, continue diuresis. 11/30; Extremely agitated when placed on PSV- SVT, hypertension. Patiet acknowledged that he drinks. IV Ativan given, CIWA protocol initiated. 12 lead ordered showed SVT, one dose of amiodarone ordered. continue to follow up cardiology recommendation 12/01: Patient remains on mechanical ventilation, getting SBT trial. Remains in SVT, started on amiodarone drip by cardiology. 12/02; patient is on mechanical ventilation and on spontaneous breathing trial. Cardiology started the patient on PO amiodarone. Patient is on cefepime. History Interval history: Patient was seen and evaluated this morning Patient is intubated and sedated Patient FiO2 40%, PEEP 6 Hospitalist Physical - Physical exam Narrative exam: Patient is sedated and intubated. Patient is obese Vital signs as documented. Head exam is unremarkable. No scleral icterus . Neck is without jugular venous distension, thyromegaly, or carotid bruits. Lungs intubated and on mechanical ventilator Cardiac exam reveals regular rate and Rhythm. Abdominal exam reveals normal bowel sounds, nontender, no organomegaly. Extremities are nonedematous and both femoral and pedal pulses are normal. 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 Vitals: Temp Pulse Resp BP Pulse Ox 98.5 F 80 17 106/68 97 12/03/19 08:00 12/03/19 07:33 12/03/19 06:00 12/03/19 07:33 12/03/19 07:33 General appearance: Present: no acute distress, well-nourished, other (Inntubated) HEART Score - HEART Score Troponin: Troponin T < 0.010 ng/mL (0.00-0.029) 11/24/19 02:53 Results - Labs CBC & Chem 7: 12/02/19 05:16 12/02/19 05:16 Labs: Laboratory Last Values WBC 11.4 K/mm3 (4.5-11.0) H 12/02/19 05:16 RBC 4.13 M/mm3 (3.65-5.03) 12/02/19 05:16 Hgb 12.0 gm/dl (11.8-15.2) 12/02/19 05:16 Hct 37.8 % (35.5-45.6) 12/02/19 05:16 MCV 92 fl (84-94) 12/02/19 05:16 MCH 29 pg (28-32) 12/02/19 05:16 MCHC 32 % (32-34) 12/02/19 05:16 RDW 15.9 % (13.2-15.2) H 12/02/19 05:16 Plt Count 190 K/mm3 (140-440) 12/02/19 05:16 Lymph % (Auto) 15.6 % (13.4-35.0) 12/02/19 05:16 [place] % (Auto) 9.9 % (0.0-7.3) H 12/02/19 05:16 Eos % (Auto) 3.4 % (0.0-4.3) 12/02/19 05:16 Baso % (Auto) 0.8 % (0.0-1.8) 12/02/19 05:16 Lymph # 1.8 K/mm3 (1.2-5.4) 12/02/19 05:16 [place] # 1.1 K/mm3 (0.0-0.8) H 12/02/19 05:16 Eos # 0.4 K/mm3 (0.0-0.4) 12/02/19 05:16 Baso # 0.1 K/mm3 (0.0-0.1) 12/02/19 05:16 Add Manual Diff Complete 11/24/19 02:53 Total Counted 100 11/24/19 02:53 Seg Neutrophils % 70.3 % (40.0-70.0) H 12/02/19 05:16 Seg Neuts % (Manual) 58.0 % (40.0-70.0) 11/24/19 02:53 Band Neutrophils % 0 % 11/24/19 02:53 Lymphocytes % (Manual) 33.0 % (13.4-35.0) 11/24/19 02:53 Reactive Lymphs % (Man) 0 % 11/24/19 02:53 Monocytes % (Manual) 6.0 % (0.0-7.3) 11/24/19 02:53 Eosinophils % (Manual) 3.0 % (0.0-4.3) 11/24/19 02:53 Basophils % (Manual) 0 % (0.0-1.8) 11/24/19 02:53 Metamyelocytes % 0 % 11/24/19 02:53 Myelocytes % 0 % 11/24/19 02:53 Promyelocytes % 0 % 11/24/19 02:53 Blast Cells % 0 % 11/24/19 02:53 Nucleated RBC % Not Reportable 11/24/19 02:53 Seg Neutrophils # 8.0 K/mm3 (1.8-7.7) H 12/02/19 05:16 Seg Neutrophils # Man 8.3 K/mm3 (1.8-7.7) H 11/24/19 02:53 Band Neutrophils # 0.0 K/mm3 11/24/19 02:53 Lymphocytes # (Manual) 4.7 K/mm3 (1.2-5.4) 11/24/19 02:53 Abs React Lymphs (Man) 0.0 K/mm3 11/24/19 02:53 Monocytes # (Manual) 0.9 K/mm3 (0.0-0.8) H 11/24/19 02:53 Eosinophils # (Manual) 0.4 K/mm3 (0.0-0.4) 11/24/19 02:53 Basophils # (Manual) 0.0 K/mm3 (0.0-0.1) 11/24/19 02:53 Metamyelocytes # 0.0 K/mm3 11/24/19 02:53 Myelocytes # 0.0 K/mm3 11/24/19 02:53 Promyelocytes # 0.0 K/mm3 11/24/19 02:53 Blast Cells # 0.0 K/mm3 11/24/19 02:53 WBC Morphology Not Reportable 11/24/19 02:53 Hypersegmented Neuts Not Reportable 11/24/19 02:53 Hyposegmented Neuts Not Reportable 11/24/19 02:53 Hypogranular Neuts Not Reportable 11/24/19 02:53 Smudge Cells Not Reportable 11/24/19 02:53 Toxic Granulation Not Reportable 11/24/19 02:53 Toxic Vacuolation Not Reportable 11/24/19 02:53 Dohle Bodies Not Reportable 11/24/19 02:53 Pelger-Huet Anomaly Not Reportable 11/24/19 02:53 Hector Rods Not Reportable 11/24/19 02:53 Platelet Estimate Consistent w auto 11/24/19 02:53 Clumped Platelets Not Reportable 11/24/19 02:53 Plt Clumps, EDTA Not Reportable 11/24/19 02:53 Large Platelets Not Reportable 11/24/19 02:53 Giant Platelets Not Reportable 11/24/19 02:53 Platelet Satelliting Not Reportable 11/24/19 02:53 Plt Morphology Comment Not Reportable 11/24/19 02:53 RBC Morphology Not Reportable 11/24/19 02:53 Dimorphic RBCs Not Reportable 11/24/19 02:53 Polychromasia Not Reportable 11/24/19 02:53 Hypochromasia Not Reportable 11/24/19 02:53 Poikilocytosis Not Reportable 11/24/19 02:53 Anisocytosis Few 11/24/19 02:53 Microcytosis Not Reportable 11/24/19 02:53 Macrocytosis Not Reportable 11/24/19 02:53 Spherocytes Not Reportable 11/24/19 02:53 Pappenheimer Bodies Not Reportable 11/24/19 02:53 Sickle Cells Not Reportable 11/24/19 02:53 Target Cells Not Reportable 11/24/19 02:53 Tear Drop Cells Not Reportable 11/24/19 02:53 Ovalocytes Not Reportable 11/24/19 02:53 Helmet Cells Not Reportable 11/24/19 02:53 Gottlieb-Concrete Bodies Not Reportable 11/24/19 02:53 [place] Rings Not Reportable 11/24/19 02:53 [place] Cells Not Reportable 11/24/19 02:53 Bite Cells Not Reportable 11/24/19 02:53 Crenated Cell Not Reportable 11/24/19 02:53 Elliptocytes Not Reportable 11/24/19 02:53 Acanthocytes (Spur) Not Reportable 11/24/19 02:53 Rouleaux Not Reportable 11/24/19 02:53 Hemoglobin C Crystals Not Reportable 11/24/19 02:53 Schistocytes Not Reportable 11/24/19 02:53 Malaria parasites Not Reportable 11/24/19 02:53 [place] Bodies Not Reportable 11/24/19 02:53 Hem Pathologist Commnt No 11/24/19 02:53 PT 12.7 Sec. (12.2-14.9) 11/25/19 05:11 INR 0.94 (0.87-1.13) 11/25/19 05:11 ABG pH 7.439 (7.320-7.450) 12/02/19 12:58 POC ABG pCO2 45.1 mmHg (32.0-48.0) 12/02/19 12:58 ABG pCO2 43.4 mm Hg 11/30/19 04:56 POC ABG pO2 78.1 mmHg (83-108) L 12/02/19 12:58 ABG pO2 56.3 mm Hg (80.0-90.0) L 11/30/19 04:56 POC ABG HCO3 29.9 12/02/19 12:58 ABG HCO3 29.3 mmol/L (20.0-26.0) H 11/30/19 04:56 ABG O2 Saturation 91.5 % (95.0-99.0) L 11/30/19 04:56 ABG O2 Content 15.1 (0.0-44) 11/30/19 04:56 POC ABG Base Excess 5.0 12/02/19 12:58 ABG Base Excess 4.7 mmol/L (-2.0-3.0) H 11/30/19 04:56 ABG Hemoglobin 13.6 (12.0-17.5) 12/02/19 12:58 ABG Oxyhemoglobin 94.7 (94-98) 12/02/19 12:58 ABG Carboxyhemoglobin 2.2 % (0.0-5.0) 11/30/19 04:56 ABG Methemoglobin 0 (0.0-1.5) 12/02/19 12:58 Oxyhemoglobin 89.2 % (95.0-99.0) L 11/30/19 04:56 Carboxyhemoglobin 1.3 (0.5-1.5) 12/02/19 12:58 FiO2 50 12/02/19 12:58 Sodium 146 mmol/L (137-145) H 12/02/19 05:16 Potassium 3.8 mmol/L (3.6-5.0) 12/02/19 05:16 Chloride 106.9 mmol/L (98-107) 12/02/19 05:16 Carbon Dioxide 29 mmol/L (22-30) 12/02/19 05:16 Anion Gap 14 mmol/L 12/02/19 05:16 BUN 28 mg/dL (9-20) H 12/02/19 05:16 Creatinine 1.0 mg/dL (0.8-1.3) 12/02/19 05:16 Estimated GFR > 60 ml/min 12/02/19 05:16 BUN/Creatinine Ratio 28 % 12/02/19 05:16 Glucose 123 mg/dL (75-100) H 12/02/19 05:16 POC Glucose 142 (70-105) H 12/03/19 06:14 Lactic Acid 2.50 mmol/L (0.7-2.0) H* 11/24/19 10:37 Calcium 9.4 mg/dL (8.4-10.2) 12/02/19 05:16 Magnesium 2.30 mg/dL (1.7-2.3) 12/01/19 12:16 Ferritin 84.4 ng/mL (30.0-300.0) 11/24/19 04:53 Total Bilirubin 0.50 mg/dL (0.1-1.2) 12/01/19 12:16 AST 48 units/L (5-40) H 12/01/19 12:16 ALT 60 units/L (7-56) H 12/01/19 12:16 Alkaline Phosphatase 45 units/L (35-129) 12/01/19 12:16 Lactate Dehydrogenase 194 units/L (91-180) H 12/01/19 12:16 Total Creatine Kinase 141 units/L (55-170) 11/24/19 02:53 CK-MB (CK-2) 4.3 ng/mL (0.0-4.0) H 11/24/19 02:53 CK-MB (CK-2) Rel Index 3.0 (0-4) 11/24/19 02:53 Troponin T < 0.010 ng/mL (0.00-0.029) 11/24/19 02:53 C-Reactive Protein 8.50 mg/dL (0.00-1.30) H 12/01/19 12:16 NT-Pro-B Natriuret Pep 286.1 pg/mL (0-900) 11/29/19 15:37 Total Protein 5.5 g/dL (6.3-8.2) L 12/01/19 12:16 Albumin 2.8 g/dL (3.9-5) L 12/01/19 12:16 Albumin/Globulin Ratio 1.0 % 12/01/19 12:16 Procalcitonin 1.59 ng/mL (<0.15) 12/02/19 05:16 Urine Color Cecy (Yellow) 12/03/19 06:03 Urine Turbidity Clear (Clear) 12/03/19 06:03 Urine pH 5.0 (5.0-7.0) 12/03/19 06:03 Ur Specific Winnie 1.030 (1.003-1.030) 12/03/19 06:03 Urine Protein <15 mg/dl mg/dL (Negative) 12/03/19 06:03 Urine Glucose (UA) Neg mg/dL (Negative) 12/03/19 06:03 Urine Ketones Neg mg/dL (Negative) 12/03/19 06:03 Urine Blood Neg (Negative) 12/03/19 06:03 Urine Nitrite Neg (Negative) 12/03/19 06:03 Urine Bilirubin Neg (Negative) 12/03/19 06:03 Urine Urobilinogen 4.0 mg/dL (<2.0) 12/03/19 06:03 Ur Leukocyte Esterase Neg (Negative) 12/03/19 06:03 Urine WBC (Auto) 8.0 /HPF (0.0-6.0) H 12/03/19 06:03 Urine RBC (Auto) 2.0 /HPF (0.0-6.0) 12/03/19 06:03 Urine Bacteria (Auto) 1+ /HPF (Negative) 12/03/19 06:03 Urine Mucus 1+ /HPF 12/03/19 06:03 Coronavirus (PCR) Negative (Negative) 11/26/19 08:26 Microbiology: Microbiology 12/02/19 20:32 Peripheral/Venous Blood Culture - Preliminary Culture in Progress 12/02/19 20:05 Peripheral/Venous Blood Culture - Preliminary Culture in Progress - Diagnostic Impressions Diagnostic Impressions: Echocardiogram 11/29/19 07:37 Transthoracic Echocardiogram Indication: CHF BP: 116/72 HR: 33 Conclusions *The study is technically limited due to poor acoustic windows. *Global left ventricular systolic function is normal. *The estimated ejection fraction is 50-55%. *Mild concentric left ventricular hypertrophy is observed. *There is trace of mitral regurgitation. *There is mild tricuspid regurgitation. Findings Procedure Info: The study quality is poor. The study is technically limited due to poor acoustic windows. The study is technically limited due to patient body habitus. Left Ventricle: The left ventricular chamber size is normal. Mild concentric left ventricular hypertrophy is observed. Global left ventricular systolic function is normal. The estimated ejection fraction is 50-55%. Left Atrium: The left atrial chamber size is normal. Right Ventricle: The right ventricular cavity size is normal. Right Atrium: The right atrial cavity size is normal. Aortic Valve: The aortic valve leaflets are moderately thickened. There is trace of aortic regurgitation. There is no evidence of aortic stenosis. Mitral Valve: The mitral valve leaflets are mildly thickened. There is trace of mitral regurgitation. There is no evidence of mitral stenosis. Tricuspid Valve: There is mild tricuspid regurgitation. No pulmonary hypertension is noted. Pulmonic Valve: There is trace pulmonic regurgitation. Pericardium: There is no pericardial effusion. Aorta: There is no dilatation of the aortic root. Venous: The inferior vena cava appears normal in size. Contrast: Definity was used to optimize study. Intravenous contrast was used to enhance endocardial border definition. Measurements Chambers 2D Name Value Normal Range Ao root diameter (2D) 3.4 cm (2 - 3.7) Aortic Valve Name Value Normal Range AV Vmax 0.98 m/sec - AV VTI 16.76 cm - AV peak gradient 3.83 mmHg - AV mean gradient 2.57 mmHg - LVOT diameter 3.11 cm - LVOT Vmax 0.68 m/sec - LVOT VTI 11.52 cm - LVOT peak gradient 1.84 mmHg - LVOT mean gradient 1.27 mmHg - SV LVOT 87.31 ml - MALOU (continuity Vmax) 5.24 cm2 - MALOU (continuity VTI) 5.21 cm2 - Tricuspid Valve Name Value Normal Range IVC diameter 2.24 cm (1.2 - 2.3) Hoffman/IV: Voiding Method Indwelling Catheter IV Catheter Type [Left Hand] INT / Saline Lock IV Catheter Type [Left Wrist] INT / Saline Lock IV Catheter Type [Right INT / Saline Lock Antecubital] Active Medications - Current Medications Current Medications: Generic Name Dose Route Start Last Admin Trade Name Freq PRN Reason Stop Dose Admin Acetaminophen 650 mg 11/25/19 17:27 12/03/19 00:11 Tylenol FEEDTUBE 650 mg Q6H PRN Administration Pain, Mild (1-3) Amiodarone HCl 200 mg 12/02/19 11:00 12/02/19 13:00 Cordarone PO 200 mg QDAY CAR Administration Docusate Sodium 100 mg 12/02/19 22:00 12/03/19 00:11 Colace FEEDTUBE 100 mg BID CAR Administration Famotidine 20 mg 11/25/19 10:00 12/02/19 22:10 Pepcid PO 20 mg BID CAR Administration Fentanyl 50 mcg 11/24/19 09:55 Sublimaze IV Q10MIN PRN ANALGESIA Haloperidol Lactate 5 mg 12/01/19 10:23 Haldol IV Q1H PRN Unrespon. to mult. doses BZD's Heparin Sodium (Porcine) 5,000 unit 11/24/19 06:00 12/03/19 05:44 Heparin SUB-Q 5,000 unit Q8HR CAR Administration Hydrophilic Ointment 1 applic 11/24/19 02:23 Vaseline Lip Therapy TP Q2HR PRN Dry Lips Fentanyl Citrate 2,000 mcg in 100 mls @ 5.67 mls/hr 11/24/19 10:00 12/02/19 22:54 Fentanyl Drip Premix IV 2 mcg/kg/hr TITR CAR 11.34 mls/hr Administration Protocol 1 MCG/KG/HR Propofol 1,000 mg in 100 mls @ 3.402 mls/hr 11/28/19 17:25 Diprivan 10 Mg/Ml IV TITR CAR Protocol 5 MCG/KG/MIN Cefepime HCl 2 gm in 100 mls @ 200 mls/hr 12/02/19 16:00 12/03/19 06:46 Cefepime/Ns 2 Gm/100 Ml IV Infused Q8HR CAR Infusion Protocol Lorazepam 2 mg 12/01/19 10:23 Ativan IV Q1H PRN CIWA-Ar 8-15 Lorazepam 4 mg 12/01/19 10:23 Ativan IV Q1H PRN CIWA-Ar 16-25 Lorazepam 4 mg 12/01/19 10:23 Ativan IV Q15MIN PRN CIWA-Ar >25 Metoprolol Tartrate 2.5 mg 12/02/19 12:00 12/03/19 06:08 Metoprolol IV Not Given Q6HR CAR Multi-Ingred Cream/Lotion/Oil/Oint 1 applic 11/24/19 02:23 Artificial Tears Ophth Oint OU Q4HR PRN Dry Eye(s) Ondansetron HCl 4 mg 11/24/19 05:31 Zofran IV Q8H PRN Nausea And Vomiting Quetiapine Fumarate 100 mg 11/28/19 22:00 12/02/19 22:10 Seroquel PO 100 mg QHS CAR Administration Sodium Chloride 10 ml 11/24/19 10:00 12/02/19 22:10 Sodium Chloride Flush Syringe 10 Ml IV 10 ml BID CAR Administration Sodium Chloride 10 ml 11/24/19 05:31 Sodium Chloride Flush Syringe 10 Ml IV PRN PRN LINE FLUSH Nutrition/Malnutrition Assess - Dietary Evaluation Nutrition/Malnutrition Findings: Nutrition Notes Start: 11/24/19 12:22 Freq: Status: Active Protocol: Document 12/01/19 13:35 HEATHER (Rec: 12/01/19 13:46 HEATHER [id number]) Co-Sign 12/01/19 13:35 LP Nutrition Notes Initial or Follow up Reassessment Current Diagnosis Coronary Artery Disease,Heart Failure,Respiratory Failure, Stroke,Hyperlipidemia Current Diet TF Vital HP 65ml/hr Labs/Tests Reviewed Pertinent Medications Lasix Height 6 ft 2 in Weight 113.39 kg [place] Body Weight (kg) 86.36 BMI 32.1 Weight Status Obese Subjective/Other Information Per RN, pt is tolerating TF at goal rate. Pt remains on vent . Percent of energy/protein needs met: 98%/79% Burn Absent Trauma Absent GI Symptoms None Usual Diet at Home unknown Skin Integrity/Comment intact Current % PO Negligible Minimum of two criteria No physical signs of malnutrition #1 Nutrition Diagnosis Inadequate oral intake Diagnosis Progress(for reassessment Continues documentation) Is patient on ventilator? Yes Is Patient Ambulatory and/or Out of Bed No REE-([place] [facility]-confined to bed) 2403.072 Kcal/Kg value to use for calculation 14 Approximate Energy Requirements Using 1587 kcal/Kg Calculation Used for Recommendations Kcal/kg Additional Notes Protein needs 173g (up to 2g/ kg IBW) Fluid needs are 1.5L Nutrition Intervention Change Diet Order: Continue TF Nutrition Support: Vital HP at 65ml/hr Flush 50ml q4hr Kcal 1,560 Protein (gm) 114 Fluid (mL) 1,304 % RDI: 100 Goal #1 TF will provide at least 65-70 % of energy needs and 80% of protein needs. Goal #2 TF tolerance Anticipated Discharge Needs: unable to determine at this time Follow-Up By: 12/08/19 Additional Comments F/u for stable TF and wt
--- NOTE | 2019-12-03 09:47 | Progress Note ---
Assessment and Plan Multifocal pneumonia with intermittent fevers negative COVID-19 test Respiratory failure Transient Afib after CPAP trial currently in sinus rhythm Ischemic Cardiomyopathy, resolving re-echo this presentation reports an LVEF 40-45%. echo 08/2018: decreased LVEF 20-25%. Hx of CAD [facility] 12/2018: mild in-stent restenosis. No significant residual disease. Recommendations: Continue oral amiodarone and metoprolol for paroxysmal atrial fibrillation. Future oral anticoagulation will depend on clinical course and possible atrial fibrillation recurrence. Subjective Date of service: 12/03/19 Principal diagnosis: Ac hypoxemic resp failure; Pneumonia; PUI COVID-19; CHF; COPD; HTN Interval history: Patient remains intubated on mechanical ventilation. Stable sinus rhythm on telemetry. Objective Vital Signs Temp Pulse Pulse Resp BP Pulse Ox 12/03/19 09:30 84 20 119/76 98 12/03/19 09:15 84 19 120/76 98 12/03/19 09:00 86 20 118/77 98 12/03/19 08:45 87 20 115/76 98 12/03/19 08:30 99 H 24 140/94 97 12/03/19 08:15 87 21 126/76 97 12/03/19 08:00 98.5 F 87 19 126/78 98 12/03/19 07:46 94 H 16 126/78 99 12/03/19 07:33 80 106/68 97 12/03/19 07:30 78 20 106/68 98 12/03/19 07:15 77 20 108/69 97 12/03/19 07:00 78 21 103/67 98 12/03/19 06:45 78 20 103/66 97 12/03/19 06:30 80 20 102/67 98 12/03/19 06:15 80 20 104/69 98 12/03/19 06:00 80 17 113/76 99 12/03/19 05:45 76 20 98/63 99 12/03/19 05:30 79 20 101/65 98 12/03/19 05:15 78 20 97/64 98 12/03/19 05:00 76 20 93/60 98 12/03/19 04:45 77 20 96/63 98 12/03/19 04:31 77 99/65 98 12/03/19 04:30 78 20 99/65 98 09/10/20 04:15 76 20 101/64 99 12/03/19 04:00 99.0 F 80 84 20 94/61 98 12/03/19 03:45 77 20 97/63 98 12/03/19 03:30 77 20 94/60 98 12/03/19 03:15 78 20 98/64 98 12/03/19 03:00 77 20 95/61 98 12/03/19 02:45 82 20 96/62 98 12/03/19 02:30 82 19 97/63 98 12/03/19 02:15 81 20 99/64 97 12/03/19 02:00 83 20 102/67 98 12/03/19 01:45 83 19 100/64 97 12/03/19 01:30 104 H 13 115/85 99 12/03/19 01:15 84 18 100/65 97 12/03/19 01:00 84 15 101/66 97 12/03/19 00:45 93 H 24 119/78 94 12/03/19 00:30 79 21 98/64 98 12/03/19 00:15 85 17 105/69 98 12/03/19 00:11 84 100/67 12/03/19 00:07 84 100/67 98 12/03/19 00:00 100.7 F H 83 84 20 100/67 98 12/02/19 23:45 86 20 102/69 98 12/02/19 23:30 87 19 101/66 96 12/02/19 23:15 89 16 102/63 96 12/02/19 23:12 86 20 98/63 96 12/02/19 23:00 91 H 19 98/63 95 12/02/19 22:45 90 19 108/65 95 12/02/19 22:30 90 21 106/68 97 12/02/19 22:15 88 16 120/73 99 12/02/19 22:00 93 H 21 124/82 99 12/02/19 21:45 84 16 116/70 98 12/02/19 21:30 83 13 111/70 97 12/02/19 21:15 82 11 L 106/70 97 12/02/19 21:00 79 20 103/65 96 12/02/19 20:45 79 10 L 101/64 97 12/02/19 20:30 78 20 108/65 96 12/02/19 20:15 79 20 102/63 96 12/02/19 20:14 79 102/63 96 12/02/19 20:00 101.1 F H 83 83 20 108/69 96 12/02/19 19:45 81 18 100/65 96 12/02/19 19:30 80 15 101/65 95 12/02/19 19:15 81 20 102/67 94 12/02/19 19:00 80 20 99/61 95 12/02/19 18:45 83 11 L 96/61 95 12/02/19 18:30 89 20 105/67 95 12/02/19 18:25 91 H 111/71 12/02/19 18:16 99 H 17 111/75 12/02/19 18:00 125 H 25 H 111/75 12/02/19 17:45 90 111/75 98 12/02/19 17:30 86 107/69 98 12/02/19 17:15 85 103/69 98 12/02/19 17:00 83 103/69 99 12/02/19 16:50 83 102/68 98 12/02/19 16:45 85 102/68 98 12/02/19 16:30 83 101/65 98 12/02/19 16:15 86 105/67 98 12/02/19 16:00 101.2 F H 87 100/65 97 12/02/19 15:45 88 101/67 97 12/02/19 15:30 91 H 107/69 97 12/02/19 15:15 94 H 107/70 97 12/02/19 15:00 95 H 105/70 96 12/02/19 14:45 99 H 106/73 100 12/02/19 14:30 99 H 106/69 100 12/02/19 14:15 107 H 111/77 100 12/02/19 14:00 132 H 157/108 100 12/02/19 13:59 131 H 100 12/02/19 13:45 178 H 132/84 99 12/02/19 13:30 100 H 132/84 98 12/02/19 13:15 97 H 124/75 98 12/02/19 13:00 105 H 126/89 100 12/02/19 12:45 97 H 118/73 99 12/02/19 12:30 101 H 130/81 97 12/02/19 12:25 99 H 18 130/81 97 12/02/19 12:15 99 H 125/77 97 12/02/19 12:00 102.2 F H 99 H 122/75 98 12/02/19 11:45 100 H 119/76 97 12/02/19 11:30 103 H 127/82 97 12/02/19 11:15 99 H 129/77 97 12/02/19 11:00 104 H 128/80 97 12/02/19 10:45 107 H 23 132/80 98 12/02/19 10:30 103 H 109/76 97 12/02/19 10:15 98 H 105/75 96 12/02/19 10:00 99 H 116/75 96 12/02/19 09:45 96 H 116/72 96 - Physical Examination General: Other (intubated on the vent) Cardiac: Positive: Reg Rate and Rhythm - Allied health notes Allied health notes reviewed: RT
[2019-12-03] MEDS: AMIODARONE 200 MG TAB PO SCH (11:20)
[2019-12-03] MEDS: FAMOTIDINE 20 MG TAB PO SCH ×2 (11:20→21:45)
[2019-12-03] MEDS: fentaNYL DRIP Premix 2,000 MCG/100 ML BAG IV SCH ×2 (11:23→23:05)
--- NOTE | 2019-12-03 11:40 | Progress Note ---
Assessment and Plan Acute hypoxemic respiratory failure Bilateral pneumonia, community acquired. Person under investigation for COVID-19 infection. Acute congestive heart failure exacerbation. History of cerebrovascular accident. Acute chronic obstructive pulmonary disease exacerbation. Hypertension and hypertensive urgency at presentation. History of arthritis. Leukocytosis. Lactic acidosis. Oropharyngeal dysphagia - repeat CXR in am +/- increase peep if RLL atelectasis is persistent (bronch if not resolved with increasing peep) - RN asked to begin sedation vacation - reduced set rate to 12/min - continue low dose seroquel - COVID isolation per facility protocol - continue care as below otherwise; - continue diuresis while following electrolytes / I's & O's - continue to wean oxygen for O2 sat's > 92% - continue bronchodilators with pulmonary hygiene per RT - VAP bundle addressed (Aspiration precautions, HOB >40) - daily SAT's and SBT assessment as tolerated - continue to wean per pulmonary driven protocols - sedation target is RASS 0 to -1 - continue prn analgesia per CPOT score - follow clinically re: fever curves / trend WBC - Avoid delirium (no benzodiazepines if they can be avoided) - Maintain sleep-wake cycle - enteral nutrition at goal rate as tolerated - continue accucheck's with glycemic control per SSI for target blood glucose goal of 140-180 mg/dL while critically ill; Avoid hypoglycemia - continue VTE prophylaxis with Heparin - continue stress ulcer prophylaxis with Famotidine - continue mobility protocols for pressure ulcer prophylaxis - continue fall precautions - continue wound care management per RN / WCT - Supportive transfusions to keep HgB>7g/dL - CXR's and ABG's prn - Continue to monitor neurologic function - Continue chronic home medications - Continue all supportive care ........ re-evaluate in am & prn CONDITION: CRITICAL PROGNOSIS: GUARDED CODE STATUS: FULL CODE The high probability of a clinically significant, sudden or life threatening deterioration of the [Respiratory, cardiovascular & neurological] system(s) required my full and direct attention, intervention and personal management. The aggregate critical care time was [32] minutes without overlap. Time includes spent on [x] Data Review and interpretation [x] Patient assessment and monitoring of vital signs [x] Documentation [x] Medication orders and management Subjective Date of service: 12/03/19 Principal diagnosis: Ac hypoxemic resp failure; Pneumonia; PUI COVID-19; CHF; COPD; HTN Interval history: Patient is seen today for: Acute hypoxemic respiratory failure; Adan. Pneumonia (CAP); PUI COVID-19 infection; AE-CHF; AE-COPD; H/O CVA; HTN Seen and examined at bedside; 24 hour events reviewed; nursing and respiratory care staff consulted; no adverse overnight events reported to me; resting peacefully in bed; sedated; failed SBT earlier with apnea's; no emesis or overt aspiration; febrile past 24-48 hours Objective Vital Signs - 12hr 12/02/19 12/03/19 12/03/19 23:45 00:00 00:07 Temperature 100.7 F H Pulse Rate 86 83 84 Pulse Rate [ 84 From Monitor] Respiratory 20 20 Rate Blood Pressure 102/69 100/67 100/67 O2 Sat by Pulse 98 98 98 Oximetry 12/03/19 12/03/19 12/03/19 00:11 00:15 00:30 Temperature Pulse Rate 84 85 79 Pulse Rate [ From Monitor] Respiratory 17 21 Rate Blood Pressure 100/67 105/69 98/64 O2 Sat by Pulse 98 98 Oximetry 12/03/19 12/03/19 12/03/19 00:45 01:00 01:15 Temperature Pulse Rate 93 H 84 84 Pulse Rate [ From Monitor] Respiratory 24 15 18 Rate Blood Pressure 119/78 101/66 100/65 O2 Sat by Pulse 94 97 97 Oximetry 12/03/19 12/03/19 12/03/19 01:30 01:45 02:00 Temperature Pulse Rate 104 H 83 83 Pulse Rate [ From Monitor] Respiratory 13 19 20 Rate Blood Pressure 115/85 100/64 102/67 O2 Sat by Pulse 99 97 98 Oximetry 12/03/19 12/03/19 12/03/19 02:15 02:30 02:45 Temperature Pulse Rate 81 82 82 Pulse Rate [ From Monitor] Respiratory 20 19 20 Rate Blood Pressure 99/64 97/63 96/62 O2 Sat by Pulse 97 98 98 Oximetry 12/03/19 12/03/19 12/03/19 03:00 03:15 03:30 Temperature Pulse Rate 77 78 77 Pulse Rate [ From Monitor] Respiratory 20 20 20 Rate Blood Pressure 95/61 98/64 94/60 O2 Sat by Pulse 98 98 98 Oximetry 12/03/19 12/03/19 12/03/19 03:45 04:00 04:15 Temperature 99.0 F Pulse Rate 77 80 76 Pulse Rate [ 84 From Monitor] Respiratory 20 20 20 Rate Blood Pressure 97/63 94/61 101/64 O2 Sat by Pulse 98 98 99 Oximetry 12/03/19 12/03/19 12/03/19 04:30 04:31 04:45 Temperature Pulse Rate 78 77 77 Pulse Rate [ From Monitor] Respiratory 20 20 Rate Blood Pressure 99/65 99/65 96/63 O2 Sat by Pulse 98 98 98 Oximetry 12/03/19 12/03/19 12/03/19 05:00 05:15 05:30 Temperature Pulse Rate 76 78 79 Pulse Rate [ From Monitor] Respiratory 20 20 20 Rate Blood Pressure 93/60 97/64 101/65 O2 Sat by Pulse 98 98 98 Oximetry 12/03/19 12/03/19 12/03/19 05:45 06:00 06:15 Temperature Pulse Rate 76 80 80 Pulse Rate [ From Monitor] Respiratory 20 17 20 Rate Blood Pressure 98/63 113/76 104/69 O2 Sat by Pulse 99 99 98 Oximetry 12/03/19 12/03/19 12/03/19 06:30 06:45 07:00 Temperature Pulse Rate 80 78 78 Pulse Rate [ From Monitor] Respiratory 20 20 21 Rate Blood Pressure 102/67 103/66 103/67 O2 Sat by Pulse 98 97 98 Oximetry 12/03/19 12/03/19 12/03/19 07:15 07:30 07:33 Temperature Pulse Rate 77 78 80 Pulse Rate [ From Monitor] Respiratory 20 20 Rate Blood Pressure 108/69 106/68 106/68 O2 Sat by Pulse 97 98 97 Oximetry 12/03/19 12/03/19 12/03/19 07:46 08:00 08:15 Temperature 98.5 F Pulse Rate 94 H 87 87 Pulse Rate [ From Monitor] Respiratory 16 19 21 Rate Blood Pressure 126/78 126/78 126/76 O2 Sat by Pulse 99 98 97 Oximetry 12/03/19 12/03/19 12/03/19 08:30 08:45 09:00 Temperature Pulse Rate 99 H 87 86 Pulse Rate [ From Monitor] Respiratory 24 20 20 Rate Blood Pressure 140/94 115/76 118/77 O2 Sat by Pulse 97 98 98 Oximetry 12/03/19 12/03/19 12/03/19 09:15 09:30 09:45 Temperature Pulse Rate 84 84 85 Pulse Rate [ From Monitor] Respiratory 19 20 21 Rate Blood Pressure 120/76 119/76 125/84 O2 Sat by Pulse 98 98 98 Oximetry 12/03/19 12/03/19 12/03/19 10:00 10:15 10:30 Temperature Pulse Rate 91 H 89 90 Pulse Rate [ From Monitor] Respiratory 19 20 19 Rate Blood Pressure 127/84 122/78 124/81 O2 Sat by Pulse 99 98 98 Oximetry 12/03/19 12/03/19 12/03/19 10:45 11:00 11:20 Temperature Pulse Rate 82 86 88 Pulse Rate [ From Monitor] Respiratory 20 21 Rate Blood Pressure 117/73 115/76 126/83 O2 Sat by Pulse 98 98 Oximetry Constitutional: no acute distress, agitated, other (elderly and obese male, normocephalic without increased respiratory effort at rest on MVS) Eyes: non-icteric ENT: oropharynx moist, other (ETT 24 cm JASON) Neck: supple, no JVD Effort: very labored Ascultation: Bilateral: diminished breath sounds, rhonchi (scant) Percussion: Bilateral: not dull Cardiovascular: regular rate and rhythm (tachycardia to the 140s) Gastrointestinal: normoactive bowel sounds, soft, non-tender, non-distended Integumentary: normal Extremities: no cyanosis, no edema, pulses normal, no ischemia or petechiae Neurologic: non-focal exam (moves all extremities with extreme agitation), pupils equal and round, motor strength normal and Psychiatric: other (unable to assess re: AMS) CBC and BMP: 12/02/19 05:16 12/02/19 05:16 ABG, PT/INR, D-dimer: ABG ABG pH 7.439 (7.320-7.450) 12/02/19 12:58 POC ABG pCO2 45.1 mmHg (32.0-48.0) 12/02/19 12:58 ABG pCO2 43.4 mm Hg 11/30/19 04:56 POC ABG pO2 78.1 mmHg (83-108) L 12/02/19 12:58 ABG pO2 56.3 mm Hg (80.0-90.0) L 11/30/19 04:56 POC ABG HCO3 29.9 12/02/19 12:58 ABG O2 Saturation 91.5 % (95.0-99.0) L 11/30/19 04:56 PT/INR, D-dimer PT 12.7 Sec. (12.2-14.9) 11/25/19 05:11 INR 0.94 (0.87-1.13) 11/25/19 05:11 Abnormal lab findings: Abnormal Labs 11/24/19 11/24/19 11/24/19 02:53 02:53 03:45 WBC 14.3 H RDW 17.2 H Lymph % (Auto) Ida % (Auto) Ida # Seg Neutrophils % Seg Neutrophils # Seg Neutrophils # Man 8.3 H Monocytes # (Manual) 0.9 H ABG pH 7.313 L POC ABG pO2 ABG pO2 102.8 H ABG HCO3 ABG O2 Saturation ABG Base Excess -2.9 L ABG Hemoglobin ABG Oxyhemoglobin Oxyhemoglobin 93.9 L Sodium Potassium Chloride BUN Glucose 195 H POC Glucose Lactic Acid Calcium AST ALT Lactate Dehydrogenase CK-MB (CK-2) 4.3 H C-Reactive Protein NT-Pro-B Natriuret Pep 1181 H Total Protein Albumin Urine WBC (Auto) 11/24/19 11/24/19 11/24/19 04:53 04:53 10:37 WBC RDW Lymph % (Auto) Ida % (Auto) Ida # Seg Neutrophils % Seg Neutrophils # Seg Neutrophils # Man Monocytes # (Manual) ABG pH POC ABG pO2 ABG pO2 ABG HCO3 ABG O2 Saturation ABG Base Excess ABG Hemoglobin ABG Oxyhemoglobin Oxyhemoglobin Sodium Potassium Chloride BUN Glucose 162 H POC Glucose Lactic Acid 2.40 H* 2.50 H* Calcium AST ALT Lactate Dehydrogenase 240 H CK-MB (CK-2) C-Reactive Protein NT-Pro-B Natriuret Pep Total Protein Albumin Urine WBC (Auto) 11/24/19 11/24/19 11/24/19 12:21 14:50 19:54 WBC RDW Lymph % (Auto) Ida % (Auto) Ida # Seg Neutrophils % Seg Neutrophils # Seg Neutrophils # Man Monocytes # (Manual) ABG pH POC ABG pO2 ABG pO2 ABG HCO3 ABG O2 Saturation ABG Base Excess ABG Hemoglobin ABG Oxyhemoglobin Oxyhemoglobin Sodium Potassium Chloride BUN Glucose POC Glucose 145 H 143 H 124 H Lactic Acid Calcium AST ALT Lactate Dehydrogenase CK-MB (CK-2) C-Reactive Protein NT-Pro-B Natriuret Pep Total Protein Albumin Urine WBC (Auto) 11/25/19 11/25/19 11/25/19 00:18 03:18 05:11 WBC 13.7 H RDW 17.1 H Lymph % (Auto) 10.8 L Ida % (Auto) 8.7 H Ida # 1.2 H Seg Neutrophils % 80.2 H Seg Neutrophils # 11.0 H Seg Neutrophils # Man Monocytes # (Manual) ABG pH 7.333 L POC ABG pO2 ABG pO2 61.2 L ABG HCO3 ABG O2 Saturation 90.2 L ABG Base Excess ABG Hemoglobin 13.7 L ABG Oxyhemoglobin Oxyhemoglobin 88.2 L Sodium Potassium Chloride BUN Glucose POC Glucose 109 H Lactic Acid Calcium AST ALT Lactate Dehydrogenase CK-MB (CK-2) C-Reactive Protein NT-Pro-B Natriuret Pep Total Protein Albumin Urine WBC (Auto) 11/25/19 11/25/19 11/26/19 05:11 11:40 03:12 WBC RDW Lymph % (Auto) Ida % (Auto) Ida # Seg Neutrophils % Seg Neutrophils # Seg Neutrophils # Man Monocytes # (Manual) ABG pH POC ABG pO2 ABG pO2 155.1 H ABG HCO3 27.8 H ABG O2 Saturation ABG Base Excess ABG Hemoglobin 12.2 L ABG Oxyhemoglobin Oxyhemoglobin Sodium Potassium Chloride BUN 23 H Glucose 110 H POC Glucose 108 H Lactic Acid Calcium AST ALT Lactate Dehydrogenase CK-MB (CK-2) C-Reactive Protein NT-Pro-B Natriuret Pep Total Protein Albumin Urine WBC (Auto) 11/26/19 11/26/19 11/26/19 06:17 10:43 10:43 WBC 11.4 H RDW 17.1 H Lymph % (Auto) Ida % (Auto) Ida # Seg Neutrophils % Seg Neutrophils # Seg Neutrophils # Man Monocytes # (Manual) ABG pH POC ABG pO2 ABG pO2 ABG HCO3 ABG O2 Saturation ABG Base Excess ABG Hemoglobin ABG Oxyhemoglobin Oxyhemoglobin Sodium Potassium Chloride BUN 29 H Glucose POC Glucose 107 H Lactic Acid Calcium AST ALT Lactate Dehydrogenase CK-MB (CK-2) C-Reactive Protein NT-Pro-B Natriuret Pep Total Protein Albumin Urine WBC (Auto) 11/26/19 11/27/1911/26/20 17:11 01:53 04:11 WBC RDW Lymph % (Auto) Ida % (Auto) Ida # Seg Neutrophils % Seg Neutrophils # Seg Neutrophils # Man Monocytes # (Manual) ABG pH POC ABG pO2 ABG pO2 ABG HCO3 29.2 H ABG O2 Saturation ABG Base Excess 3.4 H ABG Hemoglobin 13.3 L ABG Oxyhemoglobin Oxyhemoglobin 94.5 L Sodium Potassium Chloride BUN Glucose POC Glucose 113 H 108 H Lactic Acid Calcium AST ALT Lactate Dehydrogenase CK-MB (CK-2) C-Reactive Protein NT-Pro-B Natriuret Pep Total Protein Albumin Urine WBC (Auto) 11/27/19 11/28/19 11/28/19 05:27 05:00 05:25 WBC RDW Lymph % (Auto) Ida % (Auto) Ida # Seg Neutrophils % Seg Neutrophils # Seg Neutrophils # Man Monocytes # (Manual) ABG pH POC ABG pO2 68.1 L ABG pO2 ABG HCO3 ABG O2 Saturation ABG Base Excess ABG Hemoglobin ABG Oxyhemoglobin 91.2 L Oxyhemoglobin Sodium Potassium Chloride BUN Glucose POC Glucose 111 H 110 H Lactic Acid Calcium AST ALT Lactate Dehydrogenase CK-MB (CK-2) C-Reactive Protein NT-Pro-B Natriuret Pep Total Protein Albumin Urine WBC (Auto) 11/28/19 11/28/19 11/28/19 12:08 13:47 13:47 WBC 11.3 H RDW 16.1 H Lymph % (Auto) Ida % (Auto) 9.9 H Ida # 1.1 H Seg Neutrophils % 71.4 H Seg Neutrophils # 8.1 H Seg Neutrophils # Man Monocytes # (Manual) ABG pH POC ABG pO2 ABG pO2 ABG HCO3 ABG O2 Saturation ABG Base Excess ABG Hemoglobin ABG Oxyhemoglobin Oxyhemoglobin Sodium Potassium Chloride BUN 23 H Glucose 123 H POC Glucose 112 H Lactic Acid Calcium AST ALT Lactate Dehydrogenase CK-MB (CK-2) C-Reactive Protein NT-Pro-B Natriuret Pep Total Protein Albumin 3.7 L Urine WBC (Auto) 11/28/19 11/29/19 11/29/19 17:26 03:55 17:04 WBC RDW Lymph % (Auto) Ida % (Auto) Ida # Seg Neutrophils % Seg Neutrophils # Seg Neutrophils # Man Monocytes # (Manual) ABG pH POC ABG pO2 ABG pO2 65.7 L ABG HCO3 28.3 H ABG O2 Saturation 93.9 L ABG Base Excess 3.6 H ABG Hemoglobin 13.3 L ABG Oxyhemoglobin Oxyhemoglobin 91.5 L Sodium Potassium Chloride BUN Glucose POC Glucose 123 H 119 H Lactic Acid Calcium AST ALT Lactate Dehydrogenase CK-MB (CK-2) C-Reactive Protein NT-Pro-B Natriuret Pep Total Protein Albumin Urine WBC (Auto) 11/30/19 11/30/19 11/30/19 04:17 04:17 04:56 WBC 13.4 H RDW 15.6 H Lymph % (Auto) Ida % (Auto) Ida # Seg Neutrophils % Seg Neutrophils # Seg Neutrophils # Man Monocytes # (Manual) ABG pH POC ABG pO2 ABG pO2 56.3 L ABG HCO3 29.3 H ABG O2 Saturation 91.5 L ABG Base Excess 4.7 H ABG Hemoglobin 12.1 L ABG Oxyhemoglobin Oxyhemoglobin 89.2 L Sodium 147 H Potassium Chloride BUN 30 H Glucose 124 H POC Glucose Lactic Acid Calcium AST ALT Lactate Dehydrogenase CK-MB (CK-2) C-Reactive Protein NT-Pro-B Natriuret Pep Total Protein Albumin 3.8 L Urine WBC (Auto) 11/30/19 11/30/19 11/30/19 05:51 11:54 18:17 WBC RDW Lymph % (Auto) Ida % (Auto) Ida # Seg Neutrophils % Seg Neutrophils # Seg Neutrophils # Man Monocytes # (Manual) ABG pH POC ABG pO2 ABG pO2 ABG HCO3 ABG O2 Saturation ABG Base Excess ABG Hemoglobin ABG Oxyhemoglobin Oxyhemoglobin Sodium Potassium Chloride BUN Glucose POC Glucose 127 H 115 H 143 H Lactic Acid Calcium AST ALT Lactate Dehydrogenase CK-MB (CK-2) C-Reactive Protein NT-Pro-B Natriuret Pep Total Protein Albumin Urine WBC (Auto) 12/01/19 12/01/19 12/01/19 01:18 05:22 12:16 WBC RDW Lymph % (Auto) Ida % (Auto) Ida # Seg Neutrophils % Seg Neutrophils # Seg Neutrophils # Man Monocytes # (Manual) ABG pH POC ABG pO2 ABG pO2 ABG HCO3 ABG O2 Saturation ABG Base Excess ABG Hemoglobin ABG Oxyhemoglobin Oxyhemoglobin Sodium Potassium 3.5 L Chloride 107.8 H BUN 37 H Glucose 157 H POC Glucose 118 H 148 H Lactic Acid Calcium 8.2 L D AST 48 H ALT 60 H Lactate Dehydrogenase 194 H CK-MB (CK-2) C-Reactive Protein 8.50 H NT-Pro-B Natriuret Pep Total Protein 5.5 L Albumin 2.8 L Urine WBC (Auto) 12/01/19 12/02/19 12/02/19 18:04 00:05 05:16 WBC 11.4 H RDW 15.9 H Lymph % (Auto) Ida % (Auto) 9.9 H Ida # 1.1 H Seg Neutrophils % 70.3 H Seg Neutrophils # 8.0 H Seg Neutrophils # Man Monocytes # (Manual) ABG pH POC ABG pO2 ABG pO2 ABG HCO3 ABG O2 Saturation ABG Base Excess ABG Hemoglobin ABG Oxyhemoglobin Oxyhemoglobin Sodium Potassium Chloride BUN Glucose POC Glucose 143 H 107 H Lactic Acid Calcium AST ALT Lactate Dehydrogenase CK-MB (CK-2) C-Reactive Protein NT-Pro-B Natriuret Pep Total Protein Albumin Urine WBC (Auto) 12/02/19 12/02/19 12/02/19 05:16 06:03 11:52 WBC RDW Lymph % (Auto) Ida % (Auto) Ida # Seg Neutrophils % Seg Neutrophils # Seg Neutrophils # Man Monocytes # (Manual) ABG pH POC ABG pO2 ABG pO2 ABG HCO3 ABG O2 Saturation ABG Base Excess ABG Hemoglobin ABG Oxyhemoglobin Oxyhemoglobin Sodium 146 H Potassium Chloride BUN 28 H Glucose 123 H POC Glucose 110 H 152 H Lactic Acid Calcium AST ALT Lactate Dehydrogenase CK-MB (CK-2) C-Reactive Protein NT-Pro-B Natriuret Pep Total Protein Albumin Urine WBC (Auto) 12/02/19 12/02/19 12/02/19 12:58 17:58 23:36 WBC RDW Lymph % (Auto) Ida % (Auto) Ida # Seg Neutrophils % Seg Neutrophils # Seg Neutrophils # Man Monocytes # (Manual) ABG pH POC ABG pO2 78.1 L ABG pO2 ABG HCO3 ABG O2 Saturation ABG Base Excess ABG Hemoglobin ABG Oxyhemoglobin Oxyhemoglobin Sodium Potassium Chloride BUN Glucose POC Glucose 120 H 123 H Lactic Acid Calcium AST ALT Lactate Dehydrogenase CK-MB (CK-2) C-Reactive Protein NT-Pro-B Natriuret Pep Total Protein Albumin Urine WBC (Auto) 12/03/19 12/03/19 06:03 06:14 WBC RDW Lymph % (Auto) Ida % (Auto) Ida # Seg Neutrophils % Seg Neutrophils # Seg Neutrophils # Man Monocytes # (Manual) ABG pH POC ABG pO2 ABG pO2 ABG HCO3 ABG O2 Saturation ABG Base Excess ABG Hemoglobin ABG Oxyhemoglobin Oxyhemoglobin Sodium Potassium Chloride BUN Glucose POC Glucose 142 H Lactic Acid Calcium AST ALT Lactate Dehydrogenase CK-MB (CK-2) C-Reactive Protein NT-Pro-B Natriuret Pep Total Protein Albumin Urine WBC (Auto) 8.0 H Chest x-ray: image reviewed (RLL atelectasis on 11/30) Allied health notes reviewed: RT
--- NOTE | 2019-12-03 13:23 | Progress Note ---
Assessment and Plan Cultures: Blood culture 11/24/2019 pending Urine culture 11/24/2019 pending COVID-19 negative x2 A/P: 64-year-old male past medical history hypertension, COPD, CAD, CHF with reduced ejection fraction admitted with acute hypoxic respiratory failure likely secondary to pneumonia #Acute hypoxemic respiratory failure: Likely secondary to pneumonia, COVID-19 testing negative so far. Currently intubated. #Bilateral pneumonia: COVID-19 negative twice. Procalcitonin elevated, and new fevers. We will start empiric antibiotics #CHF #COPD Recs: -Recurrent fevers and new elevated procalcitonin. -Ordered sputum cultures -Start empiric cefepime 2 g every 8 hours. -Fevers this morning but improved, if not resolved will need to consider e scalation to meropenem given ICU exposure. Thank you for the consult, we will continue to follow. Michael Wade MD [facility] ([facility]) M: [phone] O: [phone] F: [phone] Subjective Date of service: 12/03/19 Principal diagnosis: Ac hypoxemic resp failure; Pneumonia; PUI COVID-19; CHF; COPD; HTN Interval history: Febrile this morning to 100.7. No acute change. On mechanical ventilation. Objective - Exam Narrative Exam: Physical Exam: Constitutional: Intubated, sedated Head, Ears, Nose: Normocephalic, atraumatic. Eyes: Conjunctivae/corneas clear. No icterus. No ptosis. Neck: Intubated Oral: Intubated Cardiovascular: S1, S2 normal. Respiratory: Good air entry, clear to auscultation bilaterally GI: Soft, non-tender; bowel sounds normal. No peritoneal signs. Musculoskeletal: No pedal edema, no cyanosis. Skin: No rash or abscess Hem/Lymphatic: No palpable cervical or supraclavicular nodes. No lymphangitis Psych: Sedated Neurological: Sedated - Constitutional Vitals: Vital Signs Temp Pulse Resp BP Pulse Ox 99.1 F 77 21 110/72 98 12/03/19 12:00 12/03/19 12:06 12/03/19 11:00 12/03/19 12:06 12/03/19 12:06 Temperature -Last 24 Hours Temperature 99.1 F Temperature 98.5 F Temperature 99.0 F Temperature 100.7 F Temperature 101.1 F Temperature 101.2 F - Labs CBC & Chem 7: 12/02/19 05:16 12/02/19 05:16 Labs: Abnormal lab results 12/02/19 12/02/19 12/02/19 Range/Units 12:58 17:58 23:36 POC ABG pO2 78.1 L (83-108) mmHg POC Glucose 120 H 123 H (70-105) Urine WBC (Auto) (0.0-6.0) /HPF 12/03/19 12/03/19 12/03/19 Range/Units 06:03 06:14 11:46 POC ABG pO2 (83-108) mmHg POC Glucose 142 H 130 H (70-105) Urine WBC (Auto) 8.0 H (0.0-6.0) /HPF
[2019-12-03] MEDS: QUEtiapine 100 MG TAB PO SCH (21:45)
[2019-12-04] MEDS: METOPROLOL TARTRATE 5 MG/5 ML INJ IV SCH ×4 (01:52→18:18)
--- NOTE | 2019-12-04 02:18 | XRay Report ---
CHEST 1 VIEW INDICATION: RLL partial atelectasis COMPARISON: 12/01/2019 FINDINGS: SUPPORT DEVICES: Endotracheal tubes in good position. Nasogastric tube has tip below diaphragm. HEART / MEDIASTINUM: No significant abnormality. LUNGS / PLEURA: Persistent airspace process right lower lobe and right middle lobe, consistent with v olume loss. Subsegmental atelectasis present left infrahilar region has improved. No pneumothorax. ADDITIONAL FINDINGS: IMPRESSION: 1. Persistent volume loss right middle and right lower lobe 2. Improved aeration left infrahilar region Signer Name: Jose Leblanc MD Signed: 12/04/2019 2:14 AM Workstation Name: [id number]
[2019-12-04] MEDS: CEFEPIME/NS 2 GM/100 ML 2 GM/100 ML BAG IV SCH ×2 (05:30→13:15)
[2019-12-04] MEDS: ACETAMINOPHEN 325 MG/10.15 ML ORAL LIQD UNIT DOSE FEEDTUBE PRN ×2 (05:30→18:17)
[2019-12-04 05:42] LABS: Blood Urea Nitrogen 30 mg/dL (9-20); Calcium 9.3 mg/dL (8.4-10.2); Hemolysis Index 14
[2019-12-04 05:46] LABS: Basophils # (Auto) 0.1 K/mm3 (0.0-0.1); Basophils % (Auto) 0.5 % (0.0-1.8); Eosinophils # (Auto) 0.5 K/mm3 (0.0-0.4); Eosinophils % (Auto) 3.9 % (0.0-4.3); Hematocrit 35.2 % (35.5-45.6); Hemoglobin 11.2 gm/dl (11.8-15.2); Lymphocytes # (Auto) 2.2 K/mm3 (1.2-5.4); Lymphocytes % (Auto) 17.3 % (13.4-35.0); Mean Corpuscular HGB Conc 32 % (32-34); Mean Corpuscular Volume 92 fl (84-94); Monocytes # (Auto) 1.2 K/mm3 (0.0-0.8); Monocytes % (Auto) 9.6 % (0.0-7.3); Platelet Count 186 K/mm3 (140-440); Red Blood Count 3.81 M/mm3 (3.65-5.03)
[2019-12-04 05:53] LABS: BUN/Creatinine Ratio 43
[2019-12-04] MEDS: HEPARIN 5,000 UNIT/1 ML VIAL SUB-Q SCH ×3 (06:02→22:07)
--- NOTE | 2019-12-04 08:17 | Progress Note ---
Assessment and Plan Assessment and plan: Patient is a 64-year-old male with known history of hypertension, COPD, history of coronary artery disease, CHF with ejection fraction of 20 to 25% in August 2018 presenting to the emergency room via EMS complaining of shortness of breath. Patient was found to be hypoxic and in respiratory distress. Patient was placed on CPAP in route to the hospital. Oxygen saturation was said to be 88%. Started on Solu-Medrol, Lasix and magnesium in ED, patient was also found to be lethargic with an oxygen saturation of about 91% on CPAP. He was subsequently intubated. Work-up in the emergency room including chest x-ray reveals bilateral pneumonia. He had an elevated white count of 14 and also had an elevated BNP. Patient to be admitted to the ICU and placed on empiric IV antibiotics for pneumonia. Acute hypoxemic respiratory failure Bilateral pneumonia, community acquired, - COVID 19 NEGATIVE Aspiration Pneumonia Sustained SVT Acute congestive heart failure exacerbation Presumed systolic History of cerebrovascular accident. Tobacco use disorder Alcohol abuse with DT Acute chronic obstructive pulmonary disease exacerbation. Hypertension and hypertensive urgency at presentation. History of arthritis. Leukocytosis with possible sepsis. Lactic acidosis. Oropharyngeal dysphagia S/P Knee surgery History of peptic Ulcer Surgery Plan Continue supportive care Wean from vent as tolerated Continue ceftriaxone 2 gm IV qday and azithromycin 500 mg PO qday fot total 5 days per ID cont Steroids, Repeat Covid 19 test negative Continue diuresis Aspiration precautions DVT/GI prophy Discussed with family The high probability of a clinically significant, sudden or life threatening deterioration of the [Respiratory, cardiovascular & neurological] system(s) required my full and direct attention, intervention and personal management. The aggregate critical care time was [35] minutes without overlap. Time includes spent on [x] Data Review and interpretation [x] Patient assessment and monitoring of vital signs [x] Documentation [x] Medication orders and management 11/25: Leukocytosis improving. Continue current management anticipate extubation possible today. 11/26. Still intubated. Failed SBT yesterday. Repeat COVID-19 test is negative. 11/27. CT head ordered for possible neuro status change is negative. More responsive as the day progressed as per RN. Chest xray today shows interval improvement. He is still on antibiotics - will complete regimen today. 11/28: Considering difficult extubation and severe cardiomyopathy, will obtain cardiology consult. Aspiration precautions, tube feeds held, continue antibiotics. 11/29: Still with intermittent fever but improving imaging, continue diuresis. 11/30; Extremely agitated when placed on PSV- SVT, hypertension. Patiet acknowledged that he drinks. IV Ativan given, CIWA protocol initiated. 12 lead ordered showed SVT, one dose of amiodarone ordered. continue to follow up cardiology recommendation 12/01: Patient remains on mechanical ventilation, getting SBT trial. Remains in SVT, started on amiodarone drip by cardiology. 12/02; patient is on mechanical ventilation and on spontaneous breathing trial. Cardiology started the patient on PO amiodarone. Patient is on cefepime. 12/03: patient is on mechanical ventilation and on spontaneous breathing trial. Cardiology started the patient on PO amiodarone for SVT. Patient is on cefepime, no fever overnight. History Interval history: Patient was seen and evaluated this morning Patient is intubated and sedated Patient FiO2 40%, PEEP 6 Patient was tachycardic Hospitalist Physical - Physical exam Narrative exam: Patient is sedated and intubated. Patient is obese Vital signs as documented. Head exam is unremarkable. No scleral icterus . Neck is without jugular venous distension, thyromegaly, or carotid bruits. Lungs intubated and on mechanical ventilator Cardiac exam reveals regular rate and Rhythm. Abdominal exam reveals normal bowel sounds, nontender, no organomegaly. Extremities are nonedematous and both femoral and pedal pulses are normal. [facility]: Sedated - Constitutional Vitals: Temp Pulse Resp BP Pulse Ox 99.7 F H 78 14 99/61 97 12/04/19 03:17 12/04/19 07:50 12/04/19 06:30 12/04/19 07:50 12/04/19 07:50 General appearance: Present: no acute distress, well-nourished, other (Innt ubated) HEART Score - HEART Score Troponin: Troponin T < 0.010 ng/mL (0.00-0.029) 11/24/19 02:53 Results - Labs CBC & Chem 7: 12/04/19 03:58 12/04/19 03:58 Labs: Laboratory Last Values WBC 12.5 K/mm3 (4.5-11.0) H 12/04/19 03:58 RBC 3.81 M/mm3 (3.65-5.03) 12/04/19 03:58 Hgb 11.2 gm/dl (11.8-15.2) L 12/04/19 03:58 Hct 35.2 % (35.5-45.6) L 12/04/19 03:58 MCV 92 fl (84-94) 12/04/19 03:58 MCH 29 pg (28-32) 12/04/19 03:58 MCHC 32 % (32-34) 12/04/19 03:58 RDW 16.0 % (13.2-15.2) H 12/04/19 03:58 Plt Count 186 K/mm3 (140-440) 12/04/19 03:58 Lymph % (Auto) 17.3 % (13.4-35.0) 12/04/19 03:58 [place] % (Auto) 9.6 % (0.0-7.3) H 12/04/19 03:58 Eos % (Auto) 3.9 % (0.0-4.3) 12/04/19 03:58 Baso % (Auto) 0.5 % (0.0-1.8) 12/04/19 03:58 Lymph # 2.2 K/mm3 (1.2-5.4) 12/04/19 03:58 [place] # 1.2 K/mm3 (0.0-0.8) H 12/04/19 03:58 Eos # 0.5 K/mm3 (0.0-0.4) H 12/04/19 03:58 Baso # 0.1 K/mm3 (0.0-0.1) 12/04/19 03:58 Add Manual Diff Complete 11/24/19 02:53 Total Counted 100 11/24/19 02:53 Seg Neutrophils % 68.7 % (40.0-70.0) 12/04/19 03:58 Seg Neuts % (Manual) 58.0 % (40.0-70.0) 11/24/19 02:53 Band Neutrophils % 0 % 11/24/19 02:53 Lymphocytes % (Manual) 33.0 % (13.4-35.0) 11/24/19 02:53 Reactive Lymphs % (Man) 0 % 11/24/19 02:53 Monocytes % (Manual) 6.0 % (0.0-7.3) 11/24/19 02:53 Eosinophils % (Manual) 3.0 % (0.0-4.3) 11/24/19 02:53 Basophils % (Manual) 0 % (0.0-1.8) 11/24/19 02:53 Metamyelocytes % 0 % 11/24/19 02:53 Myelocytes % 0 % 11/24/19 02:53 Promyelocytes % 0 % 11/24/19 02:53 Blast Cells % 0 % 11/24/19 02:53 Nucleated RBC % Not Reportable 11/24/19 02:53 Seg Neutrophils # 8.6 K/mm3 (1.8-7.7) H 12/04/19 03:58 Seg Neutrophils # Man 8.3 K/mm3 (1.8-7.7) H 11/24/19 02:53 Band Neutrophils # 0.0 K/mm3 11/24/19 02:53 Lymphocytes # (Manual) 4.7 K/mm3 (1.2-5.4) 11/24/19 02:53 Abs React Lymphs (Man) 0.0 K/mm3 11/24/19 02:53 Monocytes # (Manual) 0.9 K/mm3 (0.0-0.8) H 11/24/19 02:53 Eosinophils # (Manual) 0.4 K/mm3 (0.0-0.4) 11/24/19 02:53 Basophils # (Manual) 0.0 K/mm3 (0.0-0.1) 11/24/19 02:53 Metamyelocytes # 0.0 K/mm3 11/24/19 02:53 Myelocytes # 0.0 K/mm3 11/24/19 02:53 Promyelocytes # 0.0 K/mm3 11/24/19 02:53 Blast Cells # 0.0 K/mm3 11/24/19 02:53 WBC Morphology Not Reportable 11/24/19 02:53 Hypersegmented Neuts Not Reportable 11/24/19 02:53 Hyposegmented Neuts Not Reportable 11/24/19 02:53 Hypogranular Neuts Not Reportable 11/24/19 02:53 Smudge Cells Not Reportable 11/24/19 02:53 Toxic Granulation Not Reportable 11/24/19 02:53 Toxic Vacuolation Not Reportable 11/24/19 02:53 Dohle Bodies Not Reportable 11/24/19 02:53 Pelger-Huet Anomaly Not Reportable 11/24/19 02:53 Hector Rods Not Reportable 11/24/19 02:53 Platelet Estimate Consistent w auto 11/24/19 02:53 Clumped Platelets Not Reportable 11/24/19 02:53 Plt Clumps, EDTA Not Reportable 11/24/19 02:53 Large Platelets Not Reportable 11/24/19 02:53 Giant Platelets Not Reportable 11/24/19 02:53 Platelet Satelliting Not Reportable 11/24/19 02:53 Plt Morphology Comment Not Reportable 11/24/19 02:53 RBC Morphology Not Reportable 11/24/19 02:53 Dimorphic RBCs Not Reportable 11/24/19 02:53 Polychromasia Not Reportable 11/24/19 02:53 Hypochromasia Not Reportable 11/24/19 02:53 Poikilocytosis Not Reportable 11/24/19 02:53 Anisocytosis Few 11/24/19 02:53 Microcytosis Not Reportable 11/24/19 02:53 Macrocytosis Not Reportable 11/24/19 02:53 Spherocytes Not Reportable 11/24/19 02:53 Pappenheimer Bodies Not Reportable 11/24/19 02:53 Sickle Cells Not Reportable 11/24/19 02:53 Target Cells Not Reportable 11/24/19 02:53 Tear Drop Cells Not Reportable 11/24/19 02:53 Ovalocytes Not Reportable 11/24/19 02:53 Helmet Cells Not Reportable 11/24/19 02:53 [place] Bodies Not Reportable 11/24/19 02:53 Flora Rings Not Reportable 11/24/19 02:53 Oc Cells Not Reportable 11/24/19 02:53 Bite Cells Not Reportable 11/24/19 02:53 Crenated Cell Not Reportable 11/24/19 02:53 Elliptocytes Not Reportable 11/24/19 02:53 Acanthocytes (Spur) Not Reportable 11/24/19 02:53 Rouleaux Not Reportable 11/24/19 02:53 Hemoglobin C Crystals Not Reportable 11/24/19 02:53 Schistocytes Not Reportable 11/24/19 02:53 Malaria parasites Not Reportable 11/24/19 02:53 Clifford Bodies Not Reportable 11/24/19 02:53 Hem Pathologist Commnt No 11/24/19 02:53 PT 12.7 Sec. (12.2-14.9) 11/25/19 05:11 INR 0.94 (0.87-1.13) 11/25/19 05:11 ABG pH 7.439 (7.320-7.450) 12/02/19 12:58 POC ABG pCO2 45.1 mmHg (32.0-48.0) 12/02/19 12:58 ABG pCO2 43.4 mm Hg 11/30/19 04:56 POC ABG pO2 78.1 mmHg (83-108) L 12/02/19 12:58 ABG pO2 56.3 mm Hg (80.0-90.0) L 11/30/19 04:56 POC ABG HCO3 29.9 12/02/19 12:58 ABG HCO3 29.3 mmol/L (20.0-26.0) H 11/30/19 04:56 ABG O2 Saturation 91.5 % (95.0-99.0) L 11/30/19 04:56 ABG O2 Content 15.1 (0.0-44) 11/30/19 04:56 POC ABG Base Excess 5.0 12/02/19 12:58 ABG Base Excess 4.7 mmol/L (-2.0-3.0) H 11/30/19 04:56 ABG Hemoglobin 13.6 (12.0-17.5) 12/02/19 12:58 ABG Oxyhemoglobin 94.7 (94-98) 12/02/19 12:58 ABG Carboxyhemoglobin 2.2 % (0.0-5.0) 11/30/19 04:56 ABG Methemoglobin 0 (0.0-1.5) 12/02/19 12:58 Oxyhemoglobin 89.2 % (95.0-99.0) L 11/30/19 04:56 Carboxyhemoglobin 1.3 (0.5-1.5) 12/02/19 12:58 FiO2 50 12/02/19 12:58 Sodium 146 mmol/L (137-145) H 12/04/19 03:58 Potassium 4.5 mmol/L (3.6-5.0) 12/04/19 03:58 Chloride 108.6 mmol/L (98-107) H 12/04/19 03:58 Carbon Dioxide 26 mmol/L (22-30) 12/04/19 03:58 Anion Gap 16 mmol/L 12/04/19 03:58 BUN 30 mg/dL (9-20) H 12/04/19 03:58 Creatinine 0.7 mg/dL (0.8-1.3) L 12/04/19 03:58 Estimated GFR > 60 ml/min 12/04/19 03:58 BUN/Creatinine Ratio 43 % 12/04/19 03:58 Glucose 121 mg/dL (75-100) H 12/04/19 03:58 POC Glucose 132 (70-105) H 12/04/19 05:22 Lactic Acid 2.50 mmol/L (0.7-2.0) H* 11/24/19 10:37 Calcium 9.3 mg/dL (8.4-10.2) 12/04/19 03:58 Phosphorus 2.40 mg/dL (2.5-4.5) L 12/03/19 15:50 Magnesium 2.30 mg/dL (1.7-2.3) 12/01/19 12:16 Ferritin 84.4 ng/mL (30.0-300.0) 11/24/19 04:53 Total Bilirubin 0.50 mg/dL (0.1-1.2) 12/01/19 12:16 AST 48 units/L (5-40) H 12/01/19 12:16 ALT 60 units/L (7-56) H 12/01/19 12:16 Alkaline Phosphatase 45 units/L (35-129) 12/01/19 12:16 Lactate Dehydrogenase 194 units/L (91-180) H 12/01/19 12:16 Total Creatine Kinase 141 units/L (55-170) 11/24/19 02:53 CK-MB (CK-2) 4.3 ng/mL (0.0-4.0) H 11/24/19 02:53 CK-MB (CK-2) Rel Index 3.0 (0-4) 11/24/19 02:53 Troponin T < 0.010 ng/mL (0.00-0.029) 11/24/19 02:53 C-Reactive Protein 8.50 mg/dL (0.00-1.30) H 12/01/19 12:16 NT-Pro-B Natriuret Pep 286.1 pg/mL (0-900) 11/29/19 15:37 Total Protein 5.5 g/dL (6.3-8.2) L 12/01/19 12:16 Albumin 2.8 g/dL (3.9-5) L 12/01/19 12:16 Albumin/Globulin Ratio 1.0 % 12/01/19 12:16 Procalcitonin 1.59 ng/mL (<0.15) 12/02/19 05:16 Urine Color Cecy (Yellow) 12/03/19 06:03 Urine Turbidity Clear (Clear) 12/03/19 06:03 Urine pH 5.0 (5.0-7.0) 12/03/19 06:03 Ur Specific [place] 1.030 (1.003-1.030) 12/03/19 06:03 Urine Protein <15 mg/dl mg/dL (Negative) 12/03/19 06:03 Urine Glucose (UA) Neg mg/dL (Negative) 12/03/19 06:03 Urine Ketones Neg mg/dL (Negative) 12/03/19 06:03 Urine Blood Neg (Negative) 12/03/19 06:03 Urine Nitrite Neg (Negative) 12/03/19 06:03 Urine Bilirubin Neg (Negative) 12/03/19 06:03 Urine Urobilinogen 4.0 mg/dL (<2.0) 12/03/19 06:03 Ur Leukocyte Esterase Neg (Negative) 12/03/19 06:03 Urine WBC (Auto) 8.0 /HPF (0.0-6.0) H 12/03/19 06:03 Urine RBC (Auto) 2.0 /HPF (0.0-6.0) 12/03/19 06:03 Urine Bacteria (Auto) 1+ /HPF (Negative) 12/03/19 06:03 Urine Mucus 1+ /HPF 12/03/19 06:03 Coronavirus (PCR) Negative (Negative) 11/26/19 08:26 Microbiology: Microbiology 12/02/19 20:32 Peripheral/Venous Blood Culture - Preliminary NO GROWTH AFTER 24 HOURS 12/02/19 20:05 Peripheral/Venous Blood Culture - Preliminary NO GROWTH AFTER 24 HOURS - Diagnostic Impressions Diagnostic Impressions: Echocardiogram 11/29/19 07:37 Transthoracic Echocardiogram Indication: CHF BP: 116/72 HR: 33 Conclusions *The study is technically limited due to poor acoustic windows. *Global left ventricular systolic function is normal. *The estimated ejection fraction is 50-55%. *Mild concentric left ventricular hypertrophy is observed. *There is trace of mitral regurgitation. *There is mild tricuspid regurgitation. Findings Procedure Info: The study quality is poor. The study is technically limited due to poor acoustic windows. The study is technically limited due to patient body habitus. Left Ventricle: The left ventricular chamber size is normal. Mild concentric left ventricular hypertrophy is observed. Global left ventricular systolic function is normal. The estimated ejection fraction is 50-55%. Left Atrium: The left atrial chamber size is normal. Right Ventricle: The right ventricular cavity size is normal. Right Atrium: The right atrial cavity size is normal. Aortic Valve: The aortic valve leaflets are moderately thickened. There is trace of aortic regurgitation. There is no evidence of aortic stenosis. Mitral Valve: The mitral valve leaflets are mildly thickened. There is trace of mitral regurgitation. There is no evidence of mitral stenosis. Tricuspid Valve: There is mild tricuspid regurgitation. No pulmonary hypertension is noted. Pulmonic Valve: There is trace pulmonic regurgitation. Pericardium: There is no pericardial effusion. Aorta: There is no dilatation of the aortic root. Venous: The inferior vena cava appears normal in size. Contrast: Definity was used to optimize study. Intravenous contrast was used to enhance endocardial border definition. Measurements Chambers 2D Name Value Normal Range Ao root diameter (2D) 3.4 cm (2 - 3.7) Aortic Valve Name Value Normal Range AV Vmax 0.98 m/sec - AV VTI 16.76 cm - AV peak gradient 3.83 mmHg - AV mean gradient 2.57 mmHg - LVOT diameter 3.11 cm - LVOT Vmax 0.68 m/sec - LVOT VTI 11.52 cm - LVOT peak gradient 1.84 mmHg - LVOT mean gradient 1.27 mmHg - SV LVOT 87.31 ml - MALOU (continuity Vmax) 5.24 cm2 - MALOU (continuity VTI) 5.21 cm2 - Tricuspid Valve Name Value Normal Range IVC diameter 2.24 cm (1.2 - 2.3) Hoffman/IV: Voiding Method Indwelling Catheter IV Catheter Type [Left Hand] INT / Saline Lock IV Catheter Type [Left Wrist] INT / Saline Lock IV Catheter Type [Right INT / Saline Lock Antecubital] Active Medications - Current Medications Current Medications: Generic Name Dose Route Start Last Admin Trade Name Freq PRN Reason Stop Dose Admin Acetaminophen 650 mg 11/25/19 17:27 12/04/19 05:30 Tylenol FEEDTUBE 650 mg Q6H PRN Administration Pain, Mild (1-3) Amiodarone HCl 200 mg 12/02/19 11:00 12/03/19 11:20 Cordarone PO 200 mg QDAY CAR Administration Docusate Sodium 100 mg 12/02/19 22:00 12/03/19 21:45 Colace FEEDTUBE 100 mg BID CAR Administration Famotidine 20 mg 11/25/19 10:00 12/03/19 21:45 Pepcid PO 20 mg BID CAR Administration Fentanyl 50 mcg 11/24/19 09:55 Sublimaze IV Q10MIN PRN ANALGESIA Haloperidol Lactate 5 mg 12/01/19 10:23 Haldol IV Q1H PRN Unrespon. to mult. doses BZD's Heparin Sodium (Porcine) 5,000 unit 11/24/19 06:00 12/04/19 06:02 Heparin SUB-Q 5,000 unit Q8HR CAR Administration Hydrophilic Ointment 1 applic 11/24/19 02:23 Vaseline Lip Therapy TP Q2HR PRN Dry Lips Fentanyl Citrate 2,000 mcg in 100 mls @ 5.67 mls/hr 11/24/19 10:00 12/03/19 23:05 Fentanyl Drip Premix IV 2 mcg/kg/hr TITR CAR 11.34 mls/hr Administration Protocol 1 MCG/KG/HR Propofol 1,000 mg in 100 mls @ 3.402 mls/hr 11/28/19 17:25 Diprivan 10 Mg/Ml IV TITR CAR Protocol 5 MCG/KG/MIN Cefepime HCl 2 gm in 100 mls @ 200 mls/hr 12/02/19 16:00 12/04/19 06:00 Cefepime/Ns 2 Gm/100 Ml IV Infused Q8HR CAR Infusion Protocol Lorazepam 2 mg 12/01/19 10:23 Ativan IV Q1H PRN CIWA-Ar 8-15 Lorazepam 4 mg 12/01/19 10:23 Ativan IV Q1H PRN CIWA-Ar 16-25 Lorazepam 4 mg 12/01/19 10:23 Ativan IV Q15MIN PRN CIWA-Ar >25 Metoprolol Tartrate 2.5 mg 12/02/19 12:00 12/04/19 05:31 Metoprolol IV 2.5 mg Q6HR CAR Administration Multi-Ingred Cream/Lotion/Oil/Oint 1 applic 11/24/19 02:23 Artificial Tears Ophth Oint OU Q4HR PRN Dry Eye(s) Ondansetron HCl 4 mg 11/24/19 05:31 Zofran IV Q8H PRN Nausea And Vomiting Quetiapine Fumarate 100 mg 11/28/19 22:00 12/03/19 21:45 Seroquel PO 100 mg QHS CAR Administration Sodium Chloride 10 ml 11/24/19 10:00 12/03/19 23:08 Sodium Chloride Flush Syringe 10 Ml IV 10 ml BID CAR Administration Sodium Chloride 10 ml 11/24/19 05:31 Sodium Chloride Flush Syringe 10 Ml IV PRN PRN LINE FLUSH Nutrition/Malnutrition Assess - Dietary Evaluation Nutrition/Malnutrition Findings: Nutrition Notes Start: 11/24/19 12:22 Freq: Status: Active Protocol: Document 12/01/19 13:35 HEATHER (Rec: 12/01/19 13:46 HEATHER [id number]) Co-Sign 12/01/19 13:35 LP Nutrition Notes Initial or Follow up Reassessment Current Diagnosis Coronary Artery Disease,Heart Failure,Respiratory Failure, Stroke,Hyperlipidemia Current Diet TF Vital HP 65ml/hr Labs/Tests Reviewed Pertinent Medications Lasix Height 6 ft 2 in Weight 113.39 kg [place] Body Weight (kg) 86.36 BMI 32.1 Weight Status Obese Subjective/Other Information Per RN, pt is tolerating TF at goal rate. Pt remains on vent . Percent of energy/protein needs met: 98%/79% Burn Absent Trauma Absent GI Symptoms None Usual Diet at Home unknown Skin Integrity/Comment intact Current % PO Negligible Minimum of two criteria No physical signs of malnutrition #1 Nutrition Diagnosis Inadequate oral intake Diagnosis Progress(for reassessment Continues documentation) Is patient on ventilator? Yes Is Patient Ambulatory and/or Out of Bed No REE-([place]-St. Jeor-confined to bed) 2403.072 Kcal/Kg value to use for calculation 14 Approximate Energy Requirements Using 1587 kcal/Kg Calculation Used for Recommendations Kcal/kg Additional Notes Protein needs 173g (up to 2g/ kg IBW) Fluid needs are 1.5L Nutrition Intervention Change Diet Order: Continue TF Nutrition Support: Vital HP at 65ml/hr Flush 50ml q4hr Kcal 1,560 Protein (gm) 114 Fluid (mL) 1,304 % RDI: 100 Goal #1 TF will provide at least 65-70 % of energy needs and 80% of protein needs. Goal #2 TF tolerance Anticipated Discharge Needs: unable to determine at this time Follow-Up By: 12/08/19 Additional Comments F/u for stable TF and wt
[2019-12-04] MEDS: fentaNYL DRIP Premix 2,000 MCG/100 ML BAG IV SCH ×3 (08:52→23:04)
[2019-12-04] MEDS: DOCUSATE SODIUM 100 MG/10 ML ORAL LIQD FEEDTUBE SCH ×2 (09:02→22:06)
[2019-12-04] MEDS: FAMOTIDINE 20 MG TAB PO SCH ×2 (09:02→22:06)
[2019-12-04] MEDS: AMIODARONE 200 MG TAB PO SCH ×3 (09:03→22:06)
--- NOTE | 2019-12-04 12:57 | Progress Note ---
Assessment and Plan Acute hypoxemic respiratory failure Bilateral pneumonia, community acquired. Person under investigation for COVID-19 infection. Acute congestive heart failure exacerbation. History of cerebrovascular accident. Acute chronic obstructive pulmonary disease exacerbation. Hypertension and hypertensive urgency at presentation. History of arthritis. Leukocytosis. Lactic acidosis. Oropharyngeal dysphagia - repeat CXR shows RLL atelectasis - increased peep to 10 - chest PT to RLL region - hold SBT for now - AMS is rate limiting step to safe extubation also although still not meeting mechanical criteria yet - continue low dose seroquel - COVID isolation per facility protocol - continue care as below otherwise; - continue diuresis while following electrolytes / I's & O's - continue to wean oxygen for O2 sat's > 92% - continue bronchodilators with pulmonary hygiene per RT - VAP bundle addressed (Aspiration precautions, HOB >40) - daily SAT's and SBT assessment as tolerated - continue to wean per pulmonary driven protocols - sedation target is RASS 0 to -1 - continue prn analgesia per CPOT score - follow clinically re: fever curves / trend WBC - Avoid delirium (no benzodiazepines if they can be avoided) - Maintain sleep-wake cycle - enteral nutrition at goal rate as tolerated - continue accucheck's with glycemic control per SSI for target blood glucose goal of 140-180 mg/dL while critically ill; Avoid hypoglycemia - continue VTE prophylaxis with Heparin - continue stress ulcer prophylaxis with Famotidine - continue mobility protocols for pressure ulcer prophylaxis - continue fall precautions - continue wound care management per RN / WCT - Supportive transfusions to keep HgB>7g/dL - CXR's and ABG's prn - Continue to monitor neurologic function - Continue chronic home medications - Continue all supportive care ........ re-evaluate in am & prn CONDITION: CRITICAL PROGNOSIS: GUARDED CODE STATUS: FULL CODE The high probability of a clinically significant, sudden or life threatening deterioration of the [Respiratory, cardiovascular & neurological] system(s) required my full and direct attention, intervention and personal management. The aggregate critical care time was [35] minutes without overlap. Time includes spent on [x] Data Review and interpretation [x] Patient assessment and monitoring of vital signs [x] Documentation [x] Medication orders and management Subjective Date of service: 12/04/19 Principal diagnosis: Ac hypoxemic resp failure; Pneumonia; PUI COVID-19; CHF; COPD; HTN Interval history: Patient is seen today for: Acute hypoxemic respiratory failure; Adan. Pneumonia (CAP); PUI COVID-19 infection; AE-CHF; AE-COPD; H/O CVA; HTN Seen and examined at bedside; 24 hour events reviewed; nursing and respiratory care staff consulted; no adverse overnight events reported to me; resting peacefully in bed; on fentanyl drip; tired out after 3-4 hours on PSV yesterday with diaphoresis and tachycardia; eyes open but not following prompts; still with low grade fevers Objective Vital Signs - 12hr 12/04/19 12/04/19 12/04/19 01:00 01:16 01:30 Temperature Pulse Rate 82 82 83 Pulse Rate [ From Monitor] Respiratory 14 14 15 Rate Blood Pressure 98/62 98/62 103/68 O2 Sat by Pulse 99 98 98 Oximetry 12/04/19 12/04/19 12/04/19 01:46 02:00 02:16 Temperature Pulse Rate 81 80 82 Pulse Rate [ From Monitor] Respiratory 15 14 13 Rate Blood Pressure 103/68 105/69 105/69 O2 Sat by Pulse 98 98 98 Oximetry 12/04/19 12/04/19 12/04/19 02:30 02:46 03:00 Temperature Pulse Rate 81 82 82 Pulse Rate [ From Monitor] Respiratory 13 15 12 Rate Blood Pressure 102/67 102/67 103/69 O2 Sat by Pulse 98 98 98 Oximetry 12/04/19 12/04/19 12/04/19 03:16 03:17 03:30 Temperature 99.7 F H Pulse Rate 82 82 Pulse Rate [ From Monitor] Respiratory 15 15 Rate Blood Pressure 102/67 100/68 O2 Sat by Pulse 98 97 Oximetry 12/04/19 12/04/19 12/04/19 03:46 03:47 04:00 Temperature Pulse Rate 82 80 83 Pulse Rate [ 80 From Monitor] Respiratory 13 12 Rate Blood Pressure 103/69 91/70 O2 Sat by Pulse 97 98 98 Oximetry 12/04/19 12/04/19 12/04/19 04:16 04:30 04:46 Temperature Pulse Rate 87 81 80 Pulse Rate [ From Monitor] Respiratory 14 13 13 Rate Blood Pressure 100/68 107/70 107/70 O2 Sat by Pulse 98 98 98 Oximetry 09/11/20 09/11/20 09/11/20 05:00 05:16 05:30 Temperature Pulse Rate 83 82 85 Pulse Rate [ From Monitor] Respiratory 13 13 12 Rate Blood Pressure 102/70 107/70 102/66 O2 Sat by Pulse 97 97 96 Oximetry 12/04/19 12/04/19 12/04/19 05:31 05:46 06:00 Temperature Pulse Rate 84 89 84 Pulse Rate [ From Monitor] Respiratory 17 12 Rate Blood Pressure 102/66 102/70 109/69 O2 Sat by Pulse 99 97 Oximetry 12/04/19 12/04/19 12/04/19 06:16 06:30 06:46 Temperature Pulse Rate 81 80 81 Pulse Rate [ From Monitor] Respiratory 13 14 13 Rate Blood Pressure 109/69 97/59 97/59 O2 Sat by Pulse 95 96 95 Oximetry 12/04/19 12/04/19 12/04/19 07:00 07:16 07:30 Temperature Pulse Rate 80 78 78 Pulse Rate [ From Monitor] Respiratory 11 L 12 14 Rate Blood Pressure 105/61 105/61 99/61 O2 Sat by Pulse 93 97 95 Oximetry 12/04/19 12/04/19 12/04/19 07:46 07:50 08:00 Temperature 97.8 F Pulse Rate 80 78 96 H Pulse Rate [ From Monitor] Respiratory 13 25 H Rate Blood Pressure 99/61 99/61 127/82 O2 Sat by Pulse 97 97 96 Oximetry 12/04/19 12/04/19 12/04/19 08:16 08:30 08:46 Temperature Pulse Rate 83 95 H 118 H Pulse Rate [ From Monitor] Respiratory 13 12 17 Rate Blood Pressure 127/82 133/94 133/94 O2 Sat by Pulse 96 97 96 Oximetry 12/04/19 12/04/19 12/04/19 09:00 09:16 09:30 Temperature Pulse Rate 114 H 103 H 111 H Pulse Rate [ From Monitor] Respiratory 14 15 14 Rate Blood Pressure 116/79 116/79 117/66 O2 Sat by Pulse 91 95 91 Oximetry 12/04/19 12/04/19 12/04/19 09:46 10:00 10:16 Temperature Pulse Rate 110 H 113 H 106 H Pulse Rate [ From Monitor] Respiratory 12 16 14 Rate Blood Pressure 117/66 127/70 127/70 O2 Sat by Pulse 95 94 97 Oximetry 09/11/20 09/11/20 09/11/20 10:30 10:46 11:00 Temperature Pulse Rate 122 H 126 H 101 H Pulse Rate [ From Monitor] Respiratory 15 15 14 Rate Blood Pressure 117/63 117/63 106/71 O2 Sat by Pulse 93 98 91 Oximetry 12/04/19 12/04/19 12/04/19 11:16 11:30 11:46 Temperature Pulse Rate 130 H 111 H 106 H Pulse Rate [ From Monitor] Respiratory 24 17 18 Rate Blood Pressure 106/71 116/81 O2 Sat by Pulse 97 93 95 Oximetry 12/04/19 12/04/19 11:55 12:00 Temperature Pulse Rate 109 H 110 H Pulse Rate [ From Monitor] Respiratory 20 Rate Blood Pressure 116/81 131/80 O2 Sat by Pulse 96 100 Oximetry Constitutional: no acute distress, agitated, other (elderly and obese male, normocephalic with mildly increased respiratory effort at rest on MVS) Eyes: non-icteric ENT: oropharynx moist, other (ETT 24 cm JASON) Neck: supple, no JVD Effort: very labored Ascultation: Bilateral: diminished breath sounds, rhonchi (scant) Percussion: Bilateral: not dull Cardiovascular: regular rate and rhythm (tachycardia to the 140s) Gastrointestinal: normoactive bowel sounds, soft, non-tender, non-distended Integumentary: normal Extremities: no cyanosis, no edema, pulses normal, no ischemia or petechiae Neurologic: non-focal exam (moves all extremities with extreme agitation), pupils equal and round, motor strength normal and, other (sedated) Psychiatric: other (unable to assess re: AMS) CBC and BMP: 12/04/19 03:58 12/04/19 03:58 ABG, PT/INR, D-dimer: ABG ABG pH 7.439 (7.320-7.450) 12/02/19 12:58 POC ABG pCO2 45.1 mmHg (32.0-48.0) 12/02/19 12:58 ABG pCO2 43.4 mm Hg 11/30/19 04:56 POC ABG pO2 78.1 mmHg (83-108) L 12/02/19 12:58 ABG pO2 56.3 mm Hg (80.0-90.0) L 11/30/19 04:56 POC ABG HCO3 29.9 12/02/19 12:58 ABG O2 Saturation 91.5 % (95.0-99.0) L 11/30/19 04:56 PT/INR, D-dimer PT 12.7 Sec. (12.2-14.9) 11/25/19 05:11 INR 0.94 (0.87-1.13) 11/25/19 05:11 Abnormal lab findings: Abnormal Labs 11/24/19 11/24/19 11/24/19 02:53 02:53 03:45 WBC 14.3 H Hgb Hct RDW 17.2 H Lymph % (Auto) Ray % (Auto) Ray # Eos # Seg Neutrophils % Seg Neutrophils # Seg Neutrophils # Man 8.3 H Monocytes # (Manual) 0.9 H ABG pH 7.313 L POC ABG pO2 ABG pO2 102.8 H ABG HCO3 ABG O2 Saturation ABG Base Excess -2.9 L ABG Hemoglobin ABG Oxyhemoglobin Oxyhemoglobin 93.9 L Sodium Potassium Chloride BUN Creatinine Glucose 195 H POC Glucose Lactic Acid Calcium Phosphorus AST ALT Lactate Dehydrogenase CK-MB (CK-2) 4.3 H C-Reactive Protein NT-Pro-B Natriuret Pep 1181 H Total Protein Albumin Urine WBC (Auto) 11/24/19 11/24/19 11/24/19 04:53 04:53 10:37 WBC Hgb Hct RDW Lymph % (Auto) Ray % (Auto) Ray # Eos # Seg Neutrophils % Seg Neutrophils # Seg Neutrophils # Man Monocytes # (Manual) ABG pH POC ABG pO2 ABG pO2 ABG HCO3 ABG O2 Saturation ABG Base Excess ABG Hemoglobin ABG Oxyhemoglobin Oxyhemoglobin Sodium Potassium Chloride BUN Creatinine Glucose 162 H POC Glucose Lactic Acid 2.40 H* 2.50 H* Calcium Phosphorus AST ALT Lactate Dehydrogenase 240 H CK-MB (CK-2) C-Reactive Protein NT-Pro-B Natriuret Pep Total Protein Albumin Urine WBC (Auto) 11/24/19 11/24/19 11/24/19 12:21 14:50 19:54 WBC Hgb Hct RDW Lymph % (Auto) Ray % (Auto) Ray # Eos # Seg Neutrophils % Seg Neutrophils # Seg Neutrophils # Man Monocytes # (Manual) ABG pH POC ABG pO2 ABG pO2 ABG HCO3 ABG O2 Saturation ABG Base Excess ABG Hemoglobin ABG Oxyhemoglobin Oxyhemoglobin Sodium Potassium Chloride BUN Creatinine Glucose POC Glucose 145 H 143 H 124 H Lactic Acid Calcium Phosphorus AST ALT Lactate Dehydrogenase CK-MB (CK-2) C-Reactive Protein NT-Pro-B Natriuret Pep Total Protein Albumin Urine WBC (Auto) 11/25/19 11/25/19 11/25/19 00:18 03:18 05:11 WBC 13.7 H Hgb Hct RDW 17.1 H Lymph % (Auto) 10.8 L Ray % (Auto) 8.7 H Ray # 1.2 H Eos # Seg Neutrophils % 80.2 H Seg Neutrophils # 11.0 H Seg Neutrophils # Man Monocytes # (Manual) ABG pH 7.333 L POC ABG pO2 ABG pO2 61.2 L ABG HCO3 ABG O2 Saturation 90.2 L ABG Base Excess ABG Hemoglobin 13.7 L ABG Oxyhemoglobin Oxyhemoglobin 88.2 L Sodium Potassium Chloride BUN Creatinine Glucose POC Glucose 109 H Lactic Acid Calcium Phosphorus AST ALT Lactate Dehydrogenase CK-MB (CK-2) C-Reactive Protein NT-Pro-B Natriuret Pep Total Protein Albumin Urine WBC (Auto) 11/25/19 11/25/19 11/26/19 05:11 11:40 03:12 WBC Hgb Hct RDW Lymph % (Auto) Ray % (Auto) Ray # Eos # Seg Neutrophils % Seg Neutrophils # Seg Neutrophils # Man Monocytes # (Manual) ABG pH POC ABG pO2 ABG pO2 155.1 H ABG HCO3 27.8 H ABG O2 Saturation ABG Base Excess ABG Hemoglobin 12.2 L ABG Oxyhemoglobin Oxyhemoglobin Sodium Potassium Chloride BUN 23 H Creatinine Glucose 110 H POC Glucose 108 H Lactic Acid Calcium Phosphorus AST ALT Lactate Dehydrogenase CK-MB (CK-2) C-Reactive Protein NT-Pro-B Natriuret Pep Total Protein Albumin Urine WBC (Auto) 11/26/19 11/26/19 11/26/19 06:17 10:43 10:43 WBC 11.4 H Hgb Hct RDW 17.1 H Lymph % (Auto) Ray % (Auto) Ray # Eos # Seg Neutrophils % Seg Neutrophils # Seg Neutrophils # Man Monocytes # (Manual) ABG pH POC ABG pO2 ABG pO2 ABG HCO3 ABG O2 Saturation ABG Base Excess ABG Hemoglobin ABG Oxyhemoglobin Oxyhemoglobin Sodium Potassium Chloride BUN 29 H Creatinine Glucose POC Glucose 107 H Lactic Acid Calcium Phosphorus AST ALT Lactate Dehydrogenase CK-MB (CK-2) C-Reactive Protein NT-Pro-B Natriuret Pep Total Protein Albumin Urine WBC (Auto) 11/26/19 11/27/19 11/27/19 17:11 01:53 04:11 WBC Hgb Hct RDW Lymph % (Auto) Ray % (Auto) Ray # Eos # Seg Neutrophils % Seg Neutrophils # Seg Neutrophils # Man Monocytes # (Manual) ABG pH POC ABG pO2 ABG pO2 ABG HCO3 29.2 H ABG O2 Saturation ABG Base Excess 3.4 H ABG Hemoglobin 13.3 L ABG Oxyhemoglobin Oxyhemoglobin 94.5 L Sodium Potassium Chloride BUN Creatinine Glucose POC Glucose 113 H 108 H Lactic Acid Calcium Phosphorus AST ALT Lactate Dehydrogenase CK-MB (CK-2) C-Reactive Protein NT-Pro-B Natriuret Pep Total Protein Albumin Urine WBC (Auto) 11/27/19 11/28/19 11/28/19 05:27 05:00 05:25 WBC Hgb Hct RDW Lymph % (Auto) Ray % (Auto) Ray # Eos # Seg Neutrophils % Seg Neutrophils # Seg Neutrophils # Man Monocytes # (Manual) ABG pH POC ABG pO2 68.1 L ABG pO2 ABG HCO3 ABG O2 Saturation ABG Base Excess ABG Hemoglobin ABG Oxyhemoglobin 91.2 L Oxyhemoglobin Sodium Potassium Chloride BUN Creatinine Glucose POC Glucose 111 H 110 H Lactic Acid Calcium Phosphorus AST ALT Lactate Dehydrogenase CK-MB (CK-2) C-Reactive Protein NT-Pro-B Natriuret Pep Total Protein Albumin Urine WBC (Auto) 11/28/19 11/28/19 11/28/19 12:08 13:47 13:47 WBC 11.3 H Hgb Hct RDW 16.1 H Lymph % (Auto) Ray % (Auto) 9.9 H Ray # 1.1 H Eos # Seg Neutrophils % 71.4 H Seg Neutrophils # 8.1 H Seg Neutrophils # Man Monocytes # (Manual) ABG pH POC ABG pO2 ABG pO2 ABG HCO3 ABG O2 Saturation ABG Base Excess ABG Hemoglobin ABG Oxyhemoglobin Oxyhemoglobin Sodium Potassium Chloride BUN 23 H Creatinine Glucose 123 H POC Glucose 112 H Lactic Acid Calcium Phosphorus AST ALT Lactate Dehydrogenase CK-MB (CK-2) C-Reactive Protein NT-Pro-B Natriuret Pep Total Protein Albumin 3.7 L Urine WBC (Auto) 11/28/19 11/29/19 11/29/19 17:26 03:55 17:04 WBC Hgb Hct RDW Lymph % (Auto) Ray % (Auto) Ray # Eos # Seg Neutrophils % Seg Neutrophils # Seg Neutrophils # Man Monocytes # (Manual) ABG pH POC ABG pO2 ABG pO2 65.7 L ABG HCO3 28.3 H ABG O2 Saturation 93.9 L ABG Base Excess 3.6 H ABG Hemoglobin 13.3 L ABG Oxyhemoglobin Oxyhemoglobin 91.5 L Sodium Potassium Chloride BUN Creatinine Glucose POC Glucose 123 H 119 H Lactic Acid Calcium Phosphorus AST ALT Lactate Dehydrogenase CK-MB (CK-2) C-Reactive Protein NT-Pro-B Natriuret Pep Total Protein Albumin Urine WBC (Auto) 11/30/19 11/30/19 11/30/19 04:17 04:17 04:56 WBC 13.4 H Hgb Hct RDW 15.6 H Lymph % (Auto) Ray % (Auto) Ray # Eos # Seg Neutrophils % Seg Neutrophils # Seg Neutrophils # Man Monocytes # (Manual) ABG pH POC ABG pO2 ABG pO2 56.3 L ABG HCO3 29.3 H ABG O2 Saturation 91.5 L ABG Base Excess 4.7 H ABG Hemoglobin 12.1 L ABG Oxyhemoglobin Oxyhemoglobin 89.2 L Sodium 147 H Potassium Chloride BUN 30 H Creatinine Glucose 124 H POC Glucose Lactic Acid Calcium Phosphorus AST ALT Lactate Dehydrogenase CK-MB (CK-2) C-Reactive Protein NT-Pro-B Natriuret Pep Total Protein Albumin 3.8 L Urine WBC (Auto) 11/30/19 11/30/19 11/30/19 05:51 11:54 18:17 WBC Hgb Hct RDW Lymph % (Auto) Ray % (Auto) Ray # Eos # Seg Neutrophils % Seg Neutrophils # Seg Neutrophils # Man Monocytes # (Manual) ABG pH POC ABG pO2 ABG pO2 ABG HCO3 ABG O2 Saturation ABG Base Excess ABG Hemoglobin ABG Oxyhemoglobin Oxyhemoglobin Sodium Potassium Chloride BUN Creatinine Glucose POC Glucose 127 H 115 H 143 H Lactic Acid Calcium Phosphorus AST ALT Lactate Dehydrogenase CK-MB (CK-2) C-Reactive Protein NT-Pro-B Natriuret Pep Total Protein Albumin Urine WBC (Auto) 12/01/19 12/01/19 12/01/19 01:18 05:22 12:16 WBC Hgb Hct RDW Lymph % (Auto) Ray % (Auto) Ray # Eos # Seg Neutrophils % Seg Neutrophils # Seg Neutrophils # Man Monocytes # (Manual) ABG pH POC ABG pO2 ABG pO2 ABG HCO3 ABG O2 Saturation ABG Base Excess ABG Hemoglobin ABG Oxyhemoglobin Oxyhemoglobin Sodium Potassium 3.5 L Chloride 107.8 H BUN 37 H Creatinine Glucose 157 H POC Glucose 118 H 148 H Lactic Acid Calcium 8.2 L D Phosphorus AST 48 H ALT 60 H Lactate Dehydrogenase 194 H CK-MB (CK-2) C-Reactive Protein 8.50 H NT-Pro-B Natriuret Pep Total Protein 5.5 L Albumin 2.8 L Urine WBC (Auto) 12/01/19 12/02/19 12/02/19 18:04 00:05 05:16 WBC 11.4 H Hgb Hct RDW 15.9 H Lymph % (Auto) Ray % (Auto) 9.9 H Ray # 1.1 H Eos # Seg Neutrophils % 70.3 H Seg Neutrophils # 8.0 H Seg Neutrophils # Man Monocytes # (Manual) ABG pH POC ABG pO2 ABG pO2 ABG HCO3 ABG O2 Saturation ABG Base Excess ABG Hemoglobin ABG Oxyhemoglobin Oxyhemoglobin Sodium Potassium Chloride BUN Creatinine Glucose POC Glucose 143 H 107 H Lactic Acid Calcium Phosphorus AST ALT Lactate Dehydrogenase CK-MB (CK-2) C-Reactive Protein NT-Pro-B Natriuret Pep Total Protein Albumin Urine WBC (Auto) 12/02/19 12/02/19 12/02/19 05:16 06:03 11:52 WBC Hgb Hct RDW Lymph % (Auto) Ray % (Auto) Ray # Eos # Seg Neutrophils % Seg Neutrophils # Seg Neutrophils # Man Monocytes # (Manual) ABG pH POC ABG pO2 ABG pO2 ABG HCO3 ABG O2 Saturation ABG Base Excess ABG Hemoglobin ABG Oxyhemoglobin Oxyhemoglobin Sodium 146 H Potassium Chloride BUN 28 H Creatinine Glucose 123 H POC Glucose 110 H 152 H Lactic Acid Calcium Phosphorus AST ALT Lactate Dehydrogenase CK-MB (CK-2) C-Reactive Protein NT-Pro-B Natriuret Pep Total Protein Albumin Urine WBC (Auto) 12/02/19 12/02/19 12/02/19 12:58 17:58 23:36 WBC Hgb Hct RDW Lymph % (Auto) Ray % (Auto) Ray # Eos # Seg Neutrophils % Seg Neutrophils # Seg Neutrophils # Man Monocytes # (Manual) ABG pH POC ABG pO2 78.1 L ABG pO2 ABG HCO3 ABG O2 Saturation ABG Base Excess ABG Hemoglobin ABG Oxyhemoglobin Oxyhemoglobin Sodium Potassium Chloride BUN Creatinine Glucose POC Glucose 120 H 123 H Lactic Acid Calcium Phosphorus AST ALT Lactate Dehydrogenase CK-MB (CK-2) C-Reactive Protein NT-Pro-B Natriuret Pep Total Protein Albumin Urine WBC (Auto) 12/03/19 12/03/19 12/03/19 06:03 06:14 11:46 WBC Hgb Hct RDW Lymph % (Auto) Ray % (Auto) Ray # Eos # Seg Neutrophils % Seg Neutrophils # Seg Neutrophils # Man Monocytes # (Manual) ABG pH POC ABG pO2 ABG pO2 ABG HCO3 ABG O2 Saturation ABG Base Excess ABG Hemoglobin ABG Oxyhemoglobin Oxyhemoglobin Sodium Potassium Chloride BUN Creatinine Glucose POC Glucose 142 H 130 H Lactic Acid Calcium Phosphorus AST ALT Lactate Dehydrogenase CK-MB (CK-2) C-Reactive Protein NT-Pro-B Natriuret Pep Total Protein Albumin Urine WBC (Auto) 8.0 H 12/03/19 12/03/19 12/04/19 15:50 17:39 00:04 WBC Hgb Hct RDW Lymph % (Auto) Ray % (Auto) Ray # Eos # Seg Neutrophils % Seg Neutrophils # Seg Neutrophils # Man Monocytes # (Manual) ABG pH POC ABG pO2 ABG pO2 ABG HCO3 ABG O2 Saturation ABG Base Excess ABG Hemoglobin ABG Oxyhemoglobin Oxyhemoglobin Sodium Potassium Chloride BUN Creatinine Glucose POC Glucose 146 H 133 H Lactic Acid Calcium Phosphorus 2.40 L AST ALT Lactate Dehydrogenase CK-MB (CK-2) C-Reactive Protein NT-Pro-B Natriuret Pep Total Protein Albumin Urine WBC (Auto) 12/04/19 12/04/19 12/04/19 03:58 03:58 05:22 WBC 12.5 H Hgb 11.2 L Hct 35.2 L RDW 16.0 H Lymph % (Auto) Ray % (Auto) 9.6 H Ray # 1.2 H Eos # 0.5 H Seg Neutrophils % Seg Neutrophils # 8.6 H Seg Neutrophils # Man Monocytes # (Manual) ABG pH POC ABG pO2 ABG pO2 ABG HCO3 ABG O2 Saturation ABG Base Excess ABG Hemoglobin ABG Oxyhemoglobin Oxyhemoglobin Sodium 146 H Potassium Chloride 108.6 H BUN 30 H Creatinine 0.7 L Glucose 121 H POC Glucose 132 H Lactic Acid Calcium Phosphorus AST ALT Lactate Dehydrogenase CK-MB (CK-2) C-Reactive Protein NT-Pro-B Natriuret Pep Total Protein Albumin Urine WBC (Auto) Chest x-ray: image reviewed (RLL atelectasis) Allied health notes reviewed: RT
--- NOTE | 2019-12-04 13:52 | Progress Note ---
Assessment and Plan For paroxysmal atrial fibrillation, the patient is on metoprolol and amiodarone. We will increase amiodarone to 200 mg twice daily. Anticoagulation currently is with subcutaneous heparin. Ultimately, when he is stable of the event he will need transition to an oral anti-coagulant. Subjective Date of service: 12/04/19 Principal diagnosis: Ac hypoxemic resp failure; Pneumonia; PUI COVID-19; CHF; COPD; HTN Interval history: The patient is sedated, on the vent. On monitor technician, he appears to have reverted to an atrial fibrillation, with ventricular rate in the 110s. Blood pressure remains stable. Objective Vital Signs Temp Pulse Pulse Resp Resp BP Pulse Ox 12/04/19 13:20 96 H 14 134/79 99 12/04/19 13:15 106 H 134/79 12/04/19 12:00 110 H 20 131/80 100 12/04/19 11:55 109 H 116/81 96 12/04/19 11:46 106 H 18 95 12/04/19 11:30 111 H 17 116/81 93 12/04/19 11:16 130 H 24 106/71 97 12/04/19 11:00 101 H 14 106/71 91 12/04/19 10:46 126 H 15 117/63 98 12/04/19 10:30 122 H 15 117/63 93 12/04/19 10:16 106 H 14 127/70 97 12/04/19 10:00 113 H 16 127/70 94 12/04/19 09:46 110 H 12 117/66 95 12/04/19 09:30 111 H 14 117/66 91 12/04/19 09:16 103 H 15 116/79 95 12/04/19 09:00 114 H 14 116/79 91 12/04/19 08:46 118 H 17 133/94 96 12/04/19 08:30 95 H 12 133/94 97 12/04/19 08:16 83 13 127/82 96 12/04/19 08:00 97.8 F 96 H 25 H 127/82 96 12/04/19 07:50 78 99/61 97 12/04/19 07:46 80 13 99/61 97 12/04/19 07:30 78 14 99/61 95 12/04/19 07:16 78 12 105/61 97 12/04/19 07:00 80 11 L 105/61 93 12/04/19 06:46 81 13 97/59 95 12/04/19 06:30 80 14 97/59 96 12/04/19 06:16 81 13 109/69 95 12/04/19 06:00 84 12 109/69 97 12/04/19 05:46 89 17 102/70 99 12/04/19 05:31 84 102/66 12/04/19 05:30 85 12 102/66 96 12/04/19 05:16 82 13 107/70 97 12/04/19 05:00 83 13 102/70 97 12/04/19 04:46 80 13 107/70 98 12/04/19 04:30 81 13 107/70 98 12/04/19 04:16 87 14 100/68 98 12/04/19 04:00 83 80 12 91/70 98 12/04/19 03:47 80 98 12/04/19 03:46 82 13 103/69 97 12/04/19 03:30 82 15 100/68 97 12/04/19 03:17 99.7 F H 12/04/19 03:16 82 15 102/67 98 12/04/19 03:00 82 12 103/69 98 12/04/19 02:46 82 15 102/67 98 12/04/19 02:30 81 13 102/67 98 12/04/19 02:16 82 13 105/69 98 12/04/19 02:00 80 14 105/69 98 12/04/19 01:46 81 15 103/68 98 12/04/19 01:30 83 15 103/68 98 12/04/19 01:16 82 14 98/62 98 12/04/19 01:00 82 14 98/62 99 12/04/19 00:46 80 13 98/62 98 12/04/19 00:30 81 13 98/62 98 12/04/19 00:15 81 13 98/62 98 12/04/19 00:02 81 13 96/58 98 12/04/19 00:00 81 78 16 100/68 98 12/03/19 23:47 85 13 97/62 99 12/03/19 23:45 83 14 97/62 98 12/03/19 23:34 82 12 107/65 98 12/03/19 23:30 83 13 97/63 98 12/03/19 23:27 98 F 12/03/19 23:15 84 13 97/60 98 12/03/19 23:00 90 13 97/63 97 12/03/19 22:45 88 17 107/65 98 12/03/19 22:30 87 16 103/60 97 12/03/19 22:15 86 13 99/61 98 12/03/19 22:00 82 15 99/63 98 12/03/19 21:45 86 13 112/70 98 12/03/19 21:30 85 16 105/68 99 12/03/19 21:15 86 14 105/66 98 12/03/19 21:00 94 H 13 114/74 98 12/03/19 20:45 88 11 L 109/66 98 12/03/19 20:30 86 15 104/64 97 12/03/19 20:15 87 15 106/68 97 12/03/19 20:00 94 H 94 H 16 14 116/71 98 12/03/19 19:49 102.6 F H 12/03/19 19:45 96 H 21 111/66 98 12/03/19 19:37 91 H 100/66 99 12/03/19 19:30 89 17 100/66 100 12/03/19 19:15 89 16 107/68 100 12/03/19 19:00 94 H 15 106/70 100 12/03/19 18:45 92 H 18 106/65 100 12/03/19 18:30 95 H 16 108/65 100 12/03/19 18:15 97 H 18 102/67 100 12/03/19 18:00 102 H 18 116/69 100 12/03/19 17:45 106 H 16 115/71 100 12/03/19 17:34 113 H 143/92 12/03/19 17:30 118 H 24 143/92 100 12/03/19 17:16 158 H 21 210/144 100 12/03/19 17:00 96 H 22 127/82 98 12/03/19 16:45 99 H 25 H 130/84 98 12/03/19 16:30 96 H 21 122/82 98 12/03/19 16:15 97 H 22 134/82 97 12/03/19 16:00 101 F H 101 H 24 136/82 98 12/03/19 15:45 99 H 22 130/83 98 12/03/19 15:40 100 H 113/82 99 12/03/19 15:30 99 H 23 133/82 98 12/03/19 15:15 101 H 24 142/86 97 12/03/19 15:00 100 H 23 141/94 97 12/03/19 14:45 93 H 22 129/83 96 12/03/19 14:30 90 22 127/82 98 12/03/19 14:15 88 20 118/78 99 12/03/19 14:00 89 20 119/79 98 - Physical Examination General: Other (intubated on the vent) HEENT: Positive: PERRL Neck: Positive: neck supple Cardiac: Positive: irregularly irregular Lungs: Positive: Decreased Breath Sounds Neuro: Positive: Other (Intubated and sedated, on the vent) Abdomen: Positive: Soft Skin: Positive: Clear Extremities: Absent: edema - Labs and Meds CBC 12/04/19 Range/Units 03:58 WBC 12.5 H (4.5-11.0) K/mm3 RBC 3.81 (3.65-5.03) M/mm3 Hgb 11.2 L (11.8-15.2) gm/dl Hct 35.2 L (35.5-45.6) % Plt Count 186 (140-440) K/mm3 Lymph # 2.2 (1.2-5.4) K/mm3 [place] # 1.2 H (0.0-0.8) K/mm3 Eos # 0.5 H (0.0-0.4) K/mm3 Baso # 0.1 (0.0-0.1) K/mm3 Comprehensive Metabolic Panel 12/04/19 Range/Units 03:58 Sodium 146 H (137-145) mmol/L Potassium 4.5 (3.6-5.0) mmol/L Chloride 108.6 H (98-107) mmol/L Carbon Dioxide 26 (22-30) mmol/L BUN 30 H (9-20) mg/dL Creatinine 0.7 L (0.8-1.3) mg/dL Glucose 121 H (75-100) mg/dL Calcium 9.3 (8.4-10.2) mg/dL - Allied health notes Allied health notes reviewed: RT
--- NOTE | 2019-12-04 13:54 | Progress Note ---
Assessment and Plan Cultures: Blood culture 12/02/2019 pending Blood culture 11/24/2019 negative Urine culture 11/24/2019 negative COVID-19 negative x2 A/P: 64-year-old male past medical history hypertension, COPD, CAD, CHF with reduced ejection fraction admitted with acute hypoxic respiratory failure likely secondary to pneumonia #Acute hypoxemic respiratory failure: Likely secondary to pneumonia, COVID-19 testing negative so far. Currently intubated. #Bilateral pneumonia: COVID-19 negative twice. Procalcitonin elevated, and new fevers. We will start empiric antibiotics #CHF #COPD Recs: -Recurrent fevers and new elevated procalcitonin. -Ordered sputum cultures -stopped cefepime -Started meropenem 1g q8h Thank you for the consult, we will continue to follow. Michael Wade MD [facility] ([facility]) M: [phone] O: [phone] F: [phone] Subjective Date of service: 12/04/19 Principal diagnosis: Ac hypoxemic resp failure; Pneumonia; PUI COVID-19; CHF; COPD; HTN Interval history: Febrile to 102.6. White count stable elevated. Remains intubated. Objective - Exam Narrative Exam: Physical Exam: Constitutional: Intubated, sedated Head, Ears, Nose: Normocephalic, atraumatic. Eyes: Conjunctivae/corneas clear. No icterus. No ptosis. Neck: Intubated Oral: Intubated Cardiovascular: S1, S2 normal. Respiratory: Good air entry, clear to auscultation bilaterally GI: Soft, non-tender; bowel sounds normal. No peritoneal signs. Musculoskeletal: No pedal edema, no cyanosis. Skin: No rash or abscess Hem/Lymphatic: No palpable cervical or supraclavicular nodes. No lymphangitis Psych: Sedated Neurological: Sedated - Constitutional Vitals: Vital Signs Temp Pulse Resp BP Pulse Ox 97.8 F 96 H 14 134/79 99 12/04/19 08:00 12/04/19 13:20 12/04/19 13:20 12/04/19 13:20 12/04/19 13:20 Temperature -Last 24 Hours Temperature 97.8 F Temperature 99.7 F Temperature 98 F Temperature 102.6 F Temperature 101 F - Labs CBC & Chem 7: 12/04/19 03:58 12/04/19 03:58 Labs: Abnormal lab results 12/03/19 12/03/19 12/04/19 Range/Units 15:50 17:39 00:04 WBC (4.5-11.0) K/mm3 Hgb (11.8-15.2) gm/dl Hct (35.5-45.6) % RDW (13.2-15.2) % [place] % (Auto) (0.0-7.3) % [place] # (0.0-0.8) K/mm3 Eos # (0.0-0.4) K/mm3 Seg Neutrophils # (1.8-7.7) K/mm3 Sodium (137-145) mmol/L Chloride (98-107) mmol/L BUN (9-20) mg/dL Creatinine (0.8-1.3) mg/dL Glucose (75-100) mg/dL POC Glucose 146 H 133 H (70-105) Phosphorus 2.40 L (2.5-4.5) mg/dL 12/04/19 12/04/19 12/04/19 Range/Units 03:58 03:58 05:22 WBC 12.5 H (4.5-11.0) K/mm3 Hgb 11.2 L (11.8-15.2) gm/dl Hct 35.2 L (35.5-45.6) % RDW 16.0 H (13.2-15.2) % [place] % (Auto) 9.6 H (0.0-7.3) % [place] # 1.2 H (0.0-0.8) K/mm3 Eos # 0.5 H (0.0-0.4) K/mm3 Seg Neutrophils # 8.6 H (1.8-7.7) K/mm3 Sodium 146 H (137-145) mmol/L Chloride 108.6 H (98-107) mmol/L BUN 30 H (9-20) mg/dL Creatinine 0.7 L (0.8-1.3) mg/dL Glucose 121 H (75-100) mg/dL POC Glucose 132 H (70-105) Phosphorus (2.5-4.5) mg/dL
[2019-12-04] MEDS ORDERED: MAGNESIUM CITRATE 300 ML ORAL LIQD PO ONE (14:06)
[2019-12-04] MEDS: MEROPENEM/NS 1 GRAM/100 ML 1 GRAM/100 ML BAG IV SCH ×2 (18:42→22:06)
[2019-12-04] MEDS ORDERED: DOCUSATE SODIUM 100 MG/10 ML ORAL LIQD PO SCH (22:00)
[2019-12-04] MEDS: QUEtiapine 100 MG TAB PO SCH (22:06)
[2019-12-04] MEDS: POLYETHYLENE GLYCOL 3350 17 GM POWDER PO SCH (22:06)
[2019-12-05] MEDS: METOPROLOL TARTRATE 5 MG/5 ML INJ IV SCH ×4 (00:41→17:28)
[2019-12-05 04:28] LABS: Basophils # (Auto) 0.1 K/mm3 (0.0-0.1); Basophils % (Auto) 0.6 % (0.0-1.8); Eosinophils # (Auto) 0.3 K/mm3 (0.0-0.4); Eosinophils % (Auto) 1.8 % (0.0-4.3); Hematocrit 35.8 % (35.5-45.6); Hemoglobin 11.4 gm/dl (11.8-15.2); Lymphocytes # (Auto) 1.6 K/mm3 (1.2-5.4); Lymphocytes % (Auto) 9.9 % (13.4-35.0); Mean Corpuscular HGB Conc 32 % (32-34); Mean Corpuscular Volume 92 fl (84-94); Monocytes # (Auto) 1.6 K/mm3 (0.0-0.8); Monocytes % (Auto) 9.7 % (0.0-7.3); Platelet Count 209 K/mm3 (140-440); Red Blood Count 3.88 M/mm3 (3.65-5.03); Red Cell Distribution Width 15.6 % (13.2-15.2)
[2019-12-05 04:31] LABS: Blood Urea Nitrogen 27 mg/dL (9-20); Calcium 9.5 mg/dL (8.4-10.2); Hemolysis Index 21
[2019-12-05 04:42] LABS: BUN/Creatinine Ratio 39
[2019-12-05] MEDS: HEPARIN 5,000 UNIT/1 ML VIAL SUB-Q SCH ×3 (05:38→21:33)
[2019-12-05] MEDS: MEROPENEM/NS 1 GRAM/100 ML 1 GRAM/100 ML BAG IV SCH ×3 (05:38→21:33)
[2019-12-05] MEDS: fentaNYL DRIP Premix 2,000 MCG/100 ML BAG IV SCH ×3 (07:06→18:47)
--- NOTE | 2019-12-05 09:01 | XRay Report ---
CHEST 1 VIEW INDICATION / CLINICAL INFORMATION: RLL atelectasis. COMPARISON: 12/04/2019 FINDINGS: SUPPORT DEVICES: Stable, satisfactory device positioning. HEART / MEDIASTINUM: Stable. LUNGS / PLEURA: Increased patchy opacification in the right lung base with small right pleural effusi on. Left lung is clear. No pneumothorax. ADDITIONAL FINDINGS: No significant additional findings. IMPRESSION: 1. Increasing consolidative opacification in the right lower lung possibly representing developing pn eumonia. Small right pleural effusion. Recommend continued follow-up until resolution. Signer Name: Chaz Ramos MD Signed: 12/05/2019 8:57 AM Workstation Name: [id number]
--- NOTE | 2019-12-05 09:21 | Progress Note ---
Assessment and Plan Assessment and plan: Patient is a 64-year-old male with known history of hypertension, COPD, history of coronary artery disease, CHF with ejection fraction of 20 to 25% in August 2018 presenting to the emergency room via EMS complaining of shortness of breath. Patient was found to be hypoxic and in respiratory distress. Patient was placed on CPAP in route to the hospital. Oxygen saturation was said to be 88%. Started on Solu-Medrol, Lasix and magnesium in ED, patient was also found to be lethargic with an oxygen saturation of about 91% on CPAP. He was subsequently intubated. Work-up in the emergency room including chest x-ray reveals bilateral pneumonia. He had an elevated white count of 14 and also had an elevated BNP. Patient to be admitted to the ICU and placed on empiric IV antibiotics for pneumonia. Acute hypoxemic respiratory failure Bilateral pneumonia, community acquired, - COVID 19 NEGATIVE Aspiration Pneumonia Sustained SVT Acute congestive heart failure exacerbation Presumed systolic History of cerebrovascular accident. Tobacco use disorder Alcohol abuse with DT Acute chronic obstructive pulmonary disease exacerbation. Hypertension and hypertensive urgency at presentation. History of arthritis. Leukocytosis with possible sepsis. Lactic acidosis. Oropharyngeal dysphagia S/P Knee surgery History of peptic Ulcer Surgery Plan Continue supportive care Wean from vent as tolerated Continue ceftriaxone 2 gm IV qday and azithromycin 500 mg PO qday fot total 5 days per ID cont Steroids, Repeat Covid 19 test negative Continue diuresis Aspiration precautions DVT/GI prophy Discussed with family The high probability of a clinically significant, sudden or life threatening deterioration of the [Respiratory, cardiovascular & neurological] system(s) required my full and direct attention, intervention and personal management. The aggregate critical care time was [35] minutes without overlap. Time includes spent on [x] Data Review and interpretation [x] Patient assessment and monitoring of vital signs [x] Documentation [x] Medication orders and management 11/25: Leukocytosis improving. Continue current management anticipate extubation possible today. 11/26. Still intubated. Failed SBT yesterday. Repeat COVID-19 test is negative. 11/27. CT head ordered for possible neuro status change is negative. More responsive as the day progressed as per RN. Chest xray today shows interval improvement. He is still on antibiotics - will complete regimen today. 11/28: Considering difficult extubation and severe cardiomyopathy, will obtain cardiology consult. Aspiration precautions, tube feeds held, continue antibiotics. 11/29: Still with intermittent fever but improving imaging, continue diuresis. 11/30; Extremely agitated when placed on PSV- SVT, hypertension. Patiet acknowledged that he drinks. IV Ativan given, CIWA protocol initiated. 12 lead ordered showed SVT, one dose of amiodarone ordered. continue to follow up cardiology recommendation 12/01: Patient remains on mechanical ventilation, getting SBT trial. Remains in SVT, started on amiodarone drip by cardiology. 12/02; patient is on mechanical ventilation and on spontaneous breathing trial. Cardiology started the patient on PO amiodarone. Patient is on cefepime. 12/03: patient is on mechanical ventilation. Cardiology started the patient on PO amiodarone for SVT. Patient is on cefepime, no fever overnight. 12/04: Patient is sedated and on mechanical ventilation. Patient had fever yesterday afternoon 102.3, ID changed his cefepime to meropenem. Heart rate is controlled, cardiology is following. Patient has paroxysmal atrial fibrillation and on amiodarone and metoprolol, subcu heparin for anticoagulation and will need oral anticoagulation once stable. History Interval history: Patient was seen and evaluated this morning Patient is intubated and sedated Patient FiO2 40%, PEEP 6 Hospitalist Physical - Physical exam Narrative exam: Patient is sedated and intubated. Patient is obese Vital signs as documented. Head exam is unremarkable. No scleral icterus . Neck is without jugular venous distension, thyromegaly, or carotid bruits. Lungs intubated and on mechanical ventilator Cardiac exam reveals regular rate and Rhythm. Abdominal exam reveals normal bowel sounds, nontender, no organomegaly. Extremities are nonedematous and both femoral and pedal pulses are normal. 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 - Constitutional Vitals: Temp Pulse Resp BP Pulse Ox 97.9 F 92 H 14 126/82 93 12/05/19 07:58 12/05/19 08:30 12/05/19 08:30 12/05/19 08:30 12/05/19 08:30 General appearance: Present: no acute distress, well-nourished, other (Inntubate d) HEART Score - HEART Score Troponin: Troponin T < 0.010 ng/mL (0.00-0.029) 11/24/19 02:53 Results - Labs CBC & Chem 7: 12/05/19 03:37 12/05/19 03:37 Labs: Laboratory Last Values WBC 16.3 K/mm3 (4.5-11.0) H 12/05/19 03:37 RBC 3.88 M/mm3 (3.65-5.03) 12/05/19 03:37 Hgb 11.4 gm/dl (11.8-15.2) L 12/05/19 03:37 Hct 35.8 % (35.5-45.6) 12/05/19 03:37 MCV 92 fl (84-94) 12/05/19 03:37 MCH 29 pg (28-32) 12/05/19 03:37 MCHC 32 % (32-34) 12/05/19 03:37 RDW 15.6 % (13.2-15.2) H 12/05/19 03:37 Plt Count 209 K/mm3 (140-440) 12/05/19 03:37 Lymph % (Auto) 9.9 % (13.4-35.0) L 12/05/19 03:37 Kay % (Auto) 9.7 % (0.0-7.3) H 12/05/19 03:37 Eos % (Auto) 1.8 % (0.0-4.3) 12/05/19 03:37 Baso % (Auto) 0.6 % (0.0-1.8) 12/05/19 03:37 Lymph # 1.6 K/mm3 (1.2-5.4) 12/05/19 03:37 Kay # 1.6 K/mm3 (0.0-0.8) H 12/05/19 03:37 Eos # 0.3 K/mm3 (0.0-0.4) 12/05/19 03:37 Baso # 0.1 K/mm3 (0.0-0.1) 12/05/19 03:37 Add Manual Diff Complete 11/24/19 02:53 Total Counted 100 11/24/19 02:53 Seg Neutrophils % 78.0 % (40.0-70.0) H 12/05/19 03:37 Seg Neuts % (Manual) 58.0 % (40.0-70.0) 11/24/19 02:53 Band Neutrophils % 0 % 11/24/19 02:53 Lymphocytes % (Manual) 33.0 % (13.4-35.0) 11/24/19 02:53 Reactive Lymphs % (Man) 0 % 11/24/19 02:53 Monocytes % (Manual) 6.0 % (0.0-7.3) 11/24/19 02:53 Eosinophils % (Manual) 3.0 % (0.0-4.3) 11/24/19 02:53 Basophils % (Manual) 0 % (0.0-1.8) 11/24/19 02:53 Metamyelocytes % 0 % 11/24/19 02:53 Myelocytes % 0 % 11/24/19 02:53 Promyelocytes % 0 % 11/24/19 02:53 Blast Cells % 0 % 11/24/19 02:53 Nucleated RBC % Not Reportable 11/24/19 02:53 Seg Neutrophils # 12.7 K/mm3 (1.8-7.7) H 12/05/19 03:37 Seg Neutrophils # Man 8.3 K/mm3 (1.8-7.7) H 11/24/19 02:53 Band Neutrophils # 0.0 K/mm3 11/24/19 02:53 Lymphocytes # (Manual) 4.7 K/mm3 (1.2-5.4) 11/24/19 02:53 Abs React Lymphs (Man) 0.0 K/mm3 11/24/19 02:53 Monocytes # (Manual) 0.9 K/mm3 (0.0-0.8) H 11/24/19 02:53 Eosinophils # (Manual) 0.4 K/mm3 (0.0-0.4) 11/24/19 02:53 Basophils # (Manual) 0.0 K/mm3 (0.0-0.1) 11/24/19 02:53 Metamyelocytes # 0.0 K/mm3 11/24/19 02:53 Myelocytes # 0.0 K/mm3 11/24/19 02:53 Promyelocytes # 0.0 K/mm3 11/24/19 02:53 Blast Cells # 0.0 K/mm3 11/24/19 02:53 WBC Morphology Not Reportable 11/24/19 02:53 Hypersegmented Neuts Not Reportable 11/24/19 02:53 Hyposegmented Neuts Not Reportable 11/24/19 02:53 Hypogranular Neuts Not Reportable 11/24/19 02:53 Smudge Cells Not Reportable 11/24/19 02:53 Toxic Granulation Not Reportable 11/24/19 02:53 Toxic Vacuolation Not Reportable 11/24/19 02:53 Dohle Bodies Not Reportable 11/24/19 02:53 Pelger-Huet Anomaly Not Reportable 11/24/19 02:53 Hector Rods Not Reportable 11/24/19 02:53 Platelet Estimate Consistent w auto 11/24/19 02:53 Clumped Platelets Not Reportable 11/24/19 02:53 Plt Clumps, EDTA Not Reportable 11/24/19 02:53 Large Platelets Not Reportable 11/24/19 02:53 Giant Platelets Not Reportable 11/24/19 02:53 Platelet Satelliting Not Reportable 11/24/19 02:53 Plt Morphology Comment Not Reportable 11/24/19 02:53 RBC Morphology Not Reportable 11/24/19 02:53 Dimorphic RBCs Not Reportable 11/24/19 02:53 Polychromasia Not Reportable 11/24/19 02:53 Hypochromasia Not Reportable 11/24/19 02:53 Poikilocytosis Not Reportable 11/24/19 02:53 Anisocytosis Few 11/24/19 02:53 Microcytosis Not Reportable 11/24/19 02:53 Macrocytosis Not Reportable 11/24/19 02:53 Spherocytes Not Reportable 11/24/19 02:53 Pappenheimer Bodies Not Reportable 11/24/19 02:53 Sickle Cells Not Reportable 11/24/19 02:53 Target Cells Not Reportable 11/24/19 02:53 Tear Drop Cells Not Reportable 11/24/19 02:53 Ovalocytes Not Reportable 11/24/19 02:53 Helmet Cells Not Reportable 11/24/19 02:53 [place] Bodies Not Reportable 11/24/19 02:53 [place] Rings Not Reportable 11/24/19 02:53 [place] Cells Not Reportable 11/24/19 02:53 Bite Cells Not Reportable 11/24/19 02:53 Crenated Cell Not Reportable 11/24/19 02:53 Elliptocytes Not Reportable 11/24/19 02:53 Acanthocytes (Spur) Not Reportable 11/24/19 02:53 Rouleaux Not Reportable 11/24/19 02:53 Hemoglobin C Crystals Not Reportable 11/24/19 02:53 Schistocytes Not Reportable 11/24/19 02:53 Malaria parasites Not Reportable 11/24/19 02:53 [place] Bodies Not Reportable 11/24/19 02:53 Hem Pathologist Commnt No 11/24/19 02:53 PT 12.7 Sec. (12.2-14.9) 11/25/19 05:11 INR 0.94 (0.87-1.13) 11/25/19 05:11 ABG pH 7.439 (7.320-7.450) 12/02/19 12:58 POC ABG pCO2 45.1 mmHg (32.0-48.0) 12/02/19 12:58 ABG pCO2 43.4 mm Hg 11/30/19 04:56 POC ABG pO2 78.1 mmHg (83-108) L 12/02/19 12:58 ABG pO2 56.3 mm Hg (80.0-90.0) L 11/30/19 04:56 POC ABG HCO3 29.9 12/02/19 12:58 ABG HCO3 29.3 mmol/L (20.0-26.0) H 11/30/19 04:56 ABG O2 Saturation 91.5 % (95.0-99.0) L 11/30/19 04:56 ABG O2 Content 15.1 (0.0-44) 11/30/19 04:56 POC ABG Base Excess 5.0 12/02/19 12:58 ABG Base Excess 4.7 mmol/L (-2.0-3.0) H 11/30/19 04:56 ABG Hemoglobin 13.6 (12.0-17.5) 12/02/19 12:58 ABG Oxyhemoglobin 94.7 (94-98) 12/02/19 12:58 ABG Carboxyhemoglobin 2.2 % (0.0-5.0) 11/30/19 04:56 ABG Methemoglobin 0 (0.0-1.5) 12/02/19 12:58 Oxyhemoglobin 89.2 % (95.0-99.0) L 11/30/19 04:56 Carboxyhemoglobin 1.3 (0.5-1.5) 12/02/19 12:58 FiO2 50 12/02/19 12:58 Sodium 146 mmol/L (137-145) H 12/05/19 03:37 Potassium 4.7 mmol/L (3.6-5.0) 12/05/19 03:37 Chloride 107.2 mmol/L (98-107) H 12/05/19 03:37 Carbon Dioxide 27 mmol/L (22-30) 12/05/19 03:37 Anion Gap 17 mmol/L 12/05/19 03:37 BUN 27 mg/dL (9-20) H 12/05/19 03:37 Creatinine 0.7 mg/dL (0.8-1.3) L 12/05/19 03:37 Estimated GFR > 60 ml/min 12/05/19 03:37 BUN/Creatinine Ratio 39 % 12/05/19 03:37 Glucose 171 mg/dL (75-100) H 12/05/19 03:37 POC Glucose 168 (70-105) H 12/05/19 05:14 Lactic Acid 2.50 mmol/L (0.7-2.0) H* 11/24/19 10:37 Calcium 9.5 mg/dL (8.4-10.2) 12/05/19 03:37 Phosphorus 2.40 mg/dL (2.5-4.5) L 12/03/19 15:50 Magnesium 2.30 mg/dL (1.7-2.3) 12/01/19 12:16 Ferritin 84.4 ng/mL (30.0-300.0) 11/24/19 04:53 Total Bilirubin 0.50 mg/dL (0.1-1.2) 12/01/19 12:16 AST 48 units/L (5-40) H 12/01/19 12:16 ALT 60 units/L (7-56) H 12/01/19 12:16 Alkaline Phosphatase 45 units/L (35-129) 12/01/19 12:16 Lactate Dehydrogenase 194 units/L (91-180) H 12/01/19 12:16 Total Creatine Kinase 141 units/L (55-170) 11/24/19 02:53 CK-MB (CK-2) 4.3 ng/mL (0.0-4.0) H 11/24/19 02:53 CK-MB (CK-2) Rel Index 3.0 (0-4) 11/24/19 02:53 Troponin T < 0.010 ng/mL (0.00-0.029) 11/24/19 02:53 C-Reactive Protein 8.50 mg/dL (0.00-1.30) H 12/01/19 12:16 NT-Pro-B Natriuret Pep 286.1 pg/mL (0-900) 11/29/19 15:37 Total Protein 5.5 g/dL (6.3-8.2) L 12/01/19 12:16 Albumin 2.8 g/dL (3.9-5) L 12/01/19 12:16 Albumin/Globulin Ratio 1.0 % 12/01/19 12:16 Procalcitonin 1.59 ng/mL (<0.15) 12/02/19 05:16 Urine Color Cecy (Yellow) 12/03/19 06:03 Urine Turbidity Clear (Clear) 12/03/19 06:03 Urine pH 5.0 (5.0-7.0) 12/03/19 06:03 Ur Specific [place] 1.030 (1.003-1.030) 12/03/19 06:03 Urine Protein <15 mg/dl mg/dL (Negative) 12/03/19 06:03 Urine Glucose (UA) Neg mg/dL (Negative) 12/03/19 06:03 Urine Ketones Neg mg/dL (Negative) 12/03/19 06:03 Urine Blood Neg (Negative) 12/03/19 06:03 Urine Nitrite Neg (Negative) 12/03/19 06:03 Urine Bilirubin Neg (Negative) 12/03/19 06:03 Urine Urobilinogen 4.0 mg/dL (<2.0) 12/03/19 06:03 Ur Leukocyte Esterase Neg (Negative) 12/03/19 06:03 Urine WBC (Auto) 8.0 /HPF (0.0-6.0) H 12/03/19 06:03 Urine RBC (Auto) 2.0 /HPF (0.0-6.0) 12/03/19 06:03 Urine Bacteria (Auto) 1+ /HPF (Negative) 12/03/19 06:03 Urine Mucus 1+ /HPF 12/03/19 06:03 Coronavirus (PCR) Negative (Negative) 11/26/19 08:26 Microbiology: Microbiology 12/02/19 20:32 Peripheral/Venous Blood Culture - Preliminary NO GROWTH AFTER 48 HOURS 12/02/19 20:05 Peripheral/Venous Blood Culture - Preliminary NO GROWTH AFTER 48 HOURS - Diagnostic Impressions Diagnostic Impressions: Echocardiogram 11/29/19 07:37 Transthoracic Echocardiogram Indication: CHF BP: 116/72 HR: 33 Conclusions *The study is technically limited due to poor acoustic windows. *Global left ventricular systolic function is normal. *The estimated ejection fraction is 50-55%. *Mild concentric left ventricular hypertrophy is observed. *There is trace of mitral regurgitation. *There is mild tricuspid regurgitation. Findings Procedure Info: The study quality is poor. The study is technically limited due to poor acoustic windows. The study is technically limited due to patient body habitus. Left Ventricle: The left ventricular chamber size is normal. Mild concentric left ventricular hypertrophy is observed. Global left ventricular systolic function is normal. The estimated ejection fraction is 50-55%. Left Atrium: The left atrial chamber size is normal. Right Ventricle: The right ventricular cavity size is normal. Right Atrium: The right atrial cavity size is normal. Aortic Valve: The aortic valve leaflets are moderately thickened. There is trace of aortic regurgitation. There is no evidence of aortic stenosis. Mitral Valve: The mitral valve leaflets are mildly thickened. There is trace of mitral regurgitation. There is no evidence of mitral stenosis. Tricuspid Valve: There is mild tricuspid regurgitation. No pulmonary hypertension is noted. Pulmonic Valve: There is trace pulmonic regurgitation. Pericardium: There is no pericardial effusion. Aorta: There is no dilatation of the aortic root. Venous: The inferior vena cava appears normal in size. Contrast: Definity was used to optimize study. Intravenous contrast was used to enhance endocardial border definition. Measurements Chambers 2D Name Value Normal Range Ao root diameter (2D) 3.4 cm (2 - 3.7) Aortic Valve Name Value Normal Range AV Vmax 0.98 m/sec - AV VTI 16.76 cm - AV peak gradient 3.83 mmHg - AV mean gradient 2.57 mmHg - LVOT diameter 3.11 cm - LVOT Vmax 0.68 m/sec - LVOT VTI 11.52 cm - LVOT peak gradient 1.84 mmHg - LVOT mean gradient 1.27 mmHg - SV LVOT 87.31 ml - MALOU (continuity Vmax) 5.24 cm2 - MALOU (continuity VTI) 5.21 cm2 - Tricuspid Valve Name Value Normal Range IVC diameter 2.24 cm (1.2 - 2.3) Hoffman/IV: Voiding Method Indwelling Catheter IV Catheter Type [Left Hand] INT / Saline Lock IV Catheter Type [Left Wrist] INT / Saline Lock IV Catheter Type [Right INT / Saline Lock Antecubital] Active Medications - Current Medications Current Medications: Generic Name Dose Route Start Last Admin Trade Name Freq PRN Reason Stop Dose Admin Acetaminophen 650 mg 11/25/19 17:27 12/04/19 18:17 Tylenol FEEDTUBE 650 mg Q6H PRN Administration Pain, Mild (1-3) Amiodarone HCl 200 mg 12/04/19 14:00 12/04/19 22:06 Cordarone PO 200 mg BID CAR Administration Docusate Sodium 100 mg 12/02/19 22:00 12/04/19 22:06 Colace FEEDTUBE 100 mg BID CAR Administration Famotidine 20 mg 11/25/19 10:00 12/04/19 22:06 Pepcid PO 20 mg BID CAR Administration Fentanyl 50 mcg 11/24/19 09:55 Sublimaze IV Q10MIN PRN ANALGESIA Haloperidol Lactate 5 mg 12/01/19 10:23 Haldol IV Q1H PRN Unrespon. to mult. doses BZD's Heparin Sodium (Porcine) 5,000 unit 11/24/19 06:00 12/05/19 05:38 Heparin SUB-Q 5,000 unit Q8HR CAR Administration Hydrophilic Ointment 1 applic 11/24/19 02:23 Vaseline Lip Therapy TP Q2HR PRN Dry Lips Fentanyl Citrate 2,000 mcg in 100 mls @ 5.67 mls/hr 11/24/19 10:00 12/05/19 07:08 Fentanyl Drip Premix IV 3 mcg/kg/hr TITR CAR 17.01 mls/hr Titration Protocol 1 MCG/KG/HR Propofol 1,000 mg in 100 mls @ 3.402 mls/hr 11/28/19 17:25 Diprivan 10 Mg/Ml IV TITR CAR Protocol 5 MCG/KG/MIN MEROPENEM/NS 1 GRAM/100 ML 1 gram in 100 mls @ 100 mls/hr 12/04/19 14:00 12/05/19 05:38 Merrem/Ns 1 Gram/100 Ml IV 100 mls/hr Q8HR CAR Administration Protocol Lorazepam 2 mg 12/01/19 10:23 Ativan IV Q1H PRN CIWA-Ar 8-15 Lorazepam 4 mg 12/01/19 10:23 Ativan IV Q1H PRN CIWA-Ar 16-25 Lorazepam 4 mg 12/01/19 10:23 Ativan IV Q15MIN PRN CIWA-Ar >25 Metoprolol Tartrate 2.5 mg 12/02/19 12:00 12/05/19 05:38 Metoprolol IV 2.5 mg Q6HR CAR Administration Multi-Ingred Cream/Lotion/Oil/Oint 1 applic 11/24/19 02:23 Artificial Tears Ophth Oint OU Q4HR PRN Dry Eye(s) Ondansetron HCl 4 mg 11/24/19 05:31 Zofran IV Q8H PRN Nausea And Vomiting Polyethylene Glycol 17 gm 12/04/19 22:00 12/04/19 22:06 Miralax 3350 PO 17 gm QHS CAR Administration Quetiapine Fumarate 100 mg 11/28/19 22:00 12/04/19 22:06 Seroquel PO 100 mg QHS CAR Administration Sodium Chloride 10 ml 11/24/19 10:00 12/04/19 22:07 Sodium Chloride Flush Syringe 10 Ml IV 10 ml BID CAR Administration Sodium Chloride 10 ml 11/24/19 05:31 Sodium Chloride Flush Syringe 10 Ml IV PRN PRN LINE FLUSH Nutrition/Malnutrition Assess - Dietary Evaluation Nutrition/Malnutrition Findings: Nutrition Notes Start: 11/24/19 12:22 Freq: Status: Active Protocol: Document 12/01/19 13:35 HEATHER (Rec: 12/01/19 13:46 HEATHER [id number]) Co-Sign 12/01/19 13:35 LP Nutrition Notes Initial or Follow up Reassessment Current Diagnosis Coronary Artery Disease,Heart Failure,Respiratory Failure, Stroke,Hyperlipidemia Current Diet TF Vital HP 65ml/hr Labs/Tests Reviewed Pertinent Medications Lasix Height 6 ft 2 in Weight 113.39 kg [place] Body Weight (kg) 86.36 BMI 32.1 Weight Status Obese Subjective/Other Information Per RN, pt is tolerating TF at goal rate. Pt remains on vent . Percent of energy/protein needs met: 98%/79% Burn Absent Trauma Absent GI Symptoms None Usual Diet at Home unknown Skin Integrity/Comment intact Current % PO Negligible Minimum of two criteria No physical signs of malnutrition #1 Nutrition Diagnosis Inadequate oral intake Diagnosis Progress(for reassessment Continues documentation) Is patient on ventilator? Yes Is Patient Ambulatory and/or Out of Bed No REE-([place]-St. Jeor-confined to bed) 2403.072 Kcal/Kg value to use for calculation 14 Approximate Energy Requirements Using 1587 kcal/Kg Calculation Used for Recommendations Kcal/kg Additional Notes Protein needs 173g (up to 2g/ kg IBW) Fluid needs are 1.5L Nutrition Intervention Change Diet Order: Continue TF Nutrition Support: Vital HP at 65ml/hr Flush 50ml q4hr Kcal 1,560 Protein (gm) 114 Fluid (mL) 1,304 % RDI: 100 Goal #1 TF will provide at least 65-70 % of energy needs and 80% of protein needs. Goal #2 TF tolerance Anticipated Discharge Needs: unable to determine at this time Follow-Up By: 12/08/19 Additional Comments F/u for stable TF and wt
[2019-12-05] MEDS: AMIODARONE 200 MG TAB PO SCH ×2 (09:59→21:33)
[2019-12-05] MEDS: FAMOTIDINE 20 MG TAB PO SCH ×2 (09:59→21:33)
[2019-12-05] MEDS: DOCUSATE SODIUM 100 MG/10 ML ORAL LIQD FEEDTUBE SCH ×2 (09:59→21:33)
--- NOTE | 2019-12-05 10:17 | Progress Note ---
Assessment and Plan - Patient Problems (1) Acute respiratory failure Current Visit: Yes Status: Acute (2) Bilateral pneumonia Current Visit: Yes Status: Acute (3) COPD exacerbation Current Visit: No Status: Acute (4) Hypertension Current Visit: No Status: Acute Qualifiers: Hypertension type: essential hypertension Qualified Code(s): I10 - Essential (primary) hypertension Subjective Date of service: 12/05/19 Principal diagnosis: Ac hypoxemic resp failure; Pneumonia; PUI COVID-19; CHF; COPD; HTN Interval history: PT ON VENT' Objective Vital Signs Temp Pulse Pulse Resp Resp BP Pulse Ox 12/05/19 08:30 92 H 14 126/82 93 12/05/19 08:25 93 H 122/74 96 12/05/19 08:16 112 H 21 122/74 97 12/05/19 08:00 94 H 94 H 13 122/74 97 12/05/19 07:58 97.9 F 12/05/19 07:46 98 H 15 120/75 97 12/05/19 07:30 100 H 18 120/75 96 12/05/19 07:16 103 H 14 121/91 97 12/05/19 07:00 120 H 21 109/88 96 12/05/19 06:46 95 H 14 109/88 94 12/05/19 06:30 100 H 20 109/88 88 12/05/19 06:16 95 H 21 128/80 87 12/05/19 06:00 97 H 21 128/80 87 12/05/19 05:46 89 12 119/77 98 12/05/19 05:38 101 H 119/77 12/05/19 05:30 97 H 13 119/77 98 12/05/19 05:16 99 H 15 131/78 98 12/05/19 05:00 95 H 15 131/78 98 12/05/19 04:46 94 H 15 126/76 98 12/05/19 04:30 96 H 15 126/76 96 12/05/19 04:21 93 H 119/72 99 12/05/19 04:16 94 H 15 119/72 98 12/05/19 04:00 92 H 112 H 17 119/72 99 12/05/19 03:46 94 H 18 116/70 98 12/05/19 03:30 95 H 15 116/70 96 12/05/19 03:16 95 H 19 113/69 98 12/05/19 03:13 99.4 F 12/05/19 03:00 95 H 14 113/69 12/05/19 02:46 94 H 15 127/79 98 12/05/19 02:30 96 H 17 127/79 12/05/19 02:16 94 H 11 L 124/87 100 12/05/19 02:00 111 H 24 124/87 97 12/05/19 01:46 90 17 120/81 90 12/05/19 01:30 90 18 120/81 12/05/19 01:16 88 15 120/84 98 12/05/19 01:00 91 H 18 120/84 85 12/05/19 00:46 87 17 118/78 87 12/05/19 00:41 92 H 118/78 12/05/19 00:30 94 H 16 118/78 94 12/05/19 00:16 107 H 21 122/73 95 12/05/19 00:00 89 112 H 12 14 122/73 99 12/04/19 23:48 98.9 F 12/04/19 23:46 92 H 13 121/74 99 12/04/19 23:30 92 H 13 121/74 12/04/19 23:16 92 H 16 121/74 99 12/04/19 23:13 92 H 117/76 99 12/04/19 23:10 95 H 15 117/76 99 12/04/19 23:00 96 H 13 117/76 98 12/04/19 22:58 97 H 16 128/83 98 12/04/19 22:46 97 H 15 121/74 98 12/04/19 22:30 91 H 14 121/74 12/04/19 22:16 90 17 120/75 99 12/04/19 22:00 91 H 12 120/75 98 12/04/19 21:46 96 H 17 128/83 98 12/04/19 21:30 99 H 13 128/83 95 12/04/19 21:16 101 H 17 132/84 98 12/04/19 21:00 101 H 14 135/80 95 12/04/19 20:46 112 H 14 132/84 97 12/04/19 20:30 102 H 23 132/84 92 12/04/19 20:16 103 H 11 L 132/84 97 12/04/19 20:00 107 H 112 H 18 132/84 99 12/04/19 19:48 102.3 F H 12/04/19 19:46 110 H 20 164/110 97 12/04/19 19:30 125 H 26 H 164/110 97 12/04/19 19:17 26 H 12/04/19 19:16 108 H 19 147/74 97 12/04/19 19:00 109 H 31 H 147/74 89 12/04/19 18:46 97 H 13 137/96 97 12/04/19 18:30 103 H 20 137/96 94 12/04/19 18:18 101 H 135/89 12/04/19 18:16 106 H 21 135/89 99 12/04/19 18:00 100 H 30 H 135/89 12/04/19 17:46 99 H 29 H 137/84 97 12/04/19 17:30 97 H 32 H 137/84 12/04/19 17:16 97 H 25 H 129/86 97 12/04/19 17:00 97 H 15 129/86 12/04/19 16:46 101 H 15 146/91 97 12/04/19 16:30 101 H 36 H 146/91 12/04/19 16:16 106 H 21 129/84 100 12/04/19 16:11 92 H 126/82 97 12/04/19 16:00 100.3 F H 93 H 83 22 126/82 97 12/04/19 15:46 99 H 17 129/84 99 12/04/19 15:30 95 H 15 129/84 12/04/19 15:16 93 H 17 119/81 99 12/04/19 15:00 91 H 13 127/82 98 12/04/19 14:46 93 H 14 127/82 98 12/04/19 14:30 91 H 13 127/82 12/04/19 14:16 95 H 19 128/85 98 12/04/19 14:00 94 H 15 128/85 98 12/04/19 13:46 91 H 14 114/77 99 12/04/19 13:30 93 H 10 L 114/77 12/04/19 13:20 96 H 14 134/79 99 12/04/19 13:16 108 H 21 134/79 99 12/04/19 13:15 106 H 134/79 12/04/19 13:00 105 H 18 134/79 96 12/04/19 12:46 105 H 14 117/78 97 12/04/19 12:30 105 H 15 117/78 12/04/19 12:16 108 H 15 131/80 96 12/04/19 12:00 100.4 F H 110 H 20 131/80 97 12/04/19 11:55 109 H 116/81 96 12/04/19 11:46 106 H 18 95 12/04/19 11:30 111 H 17 116/81 93 12/04/19 11:16 130 H 24 106/71 97 12/04/19 11:00 101 H 14 106/71 91 12/04/19 10:46 126 H 15 117/63 98 12/04/19 10:30 122 H 15 117/63 93 - Physical Examination General: Other (intubated on the vent) HEENT: Positive: PERRL Neck: Positive: neck supple Cardiac: Positive: Reg Rate and Rhythm Lungs: Positive: Decreased Breath Sounds Neuro: Positive: Other (Intubated and sedated, on the vent) Abdomen: Positive: Soft Skin: Positive: Clear Extremities: Absent: edema - Labs and Meds CBC 12/05/19 Range/Units 03:37 WBC 16.3 H (4.5-11.0) K/mm3 RBC 3.88 (3.65-5.03) M/mm3 Hgb 11.4 L (11.8-15.2) gm/dl Hct 35.8 (35.5-45.6) % Plt Count 209 (140-440) K/mm3 Lymph # 1.6 (1.2-5.4) K/mm3 [place] # 1.6 H (0.0-0.8) K/mm3 Eos # 0.3 (0.0-0.4) K/mm3 Baso # 0.1 (0.0-0.1) K/mm3 Comprehensive Metabolic Panel 12/05/19 Range/Units 03:37 Sodium 146 H (137-145) mmol/L Potassium 4.7 (3.6-5.0) mmol/L Chloride 107.2 H (98-107) mmol/L Carbon Dioxide 27 (22-30) mmol/L BUN 27 H (9-20) mg/dL Creatinine 0.7 L (0.8-1.3) mg/dL Glucose 171 H (75-100) mg/dL Calcium 9.5 (8.4-10.2) mg/dL - Allied health notes Allied health notes reviewed: RT
--- NOTE | 2019-12-05 12:01 | Progress Note ---
Assessment and Plan Acute hypoxemic respiratory failure Bilateral pneumonia, community acquired. Person under investigation for COVID-19 infection. Acute congestive heart failure exacerbation. History of cerebrovascular accident. Acute chronic obstructive pulmonary disease exacerbation. Hypertension and hypertensive urgency at presentation. History of arthritis. Leukocytosis. Lactic acidosis. Oropharyngeal dysphagia - dulcolax suppository re: constipation - repeat CXR with partially resolved RLL atelectasis; will keep peep at 10 - continue chest PT to RLL region - resume SBT's as tolerated in am - get PO4 level in am and address - fevers better, will hold on further VTE w/up - AMS may be a rate limiting step to safe extubation but is improving - continue low dose seroquel - COVID isolation per facility protocol - continue care as below otherwise; - continue diuresis while following electrolytes / I's & O's - continue to wean oxygen for O2 sat's > 92% - continue bronchodilators with pulmonary hygiene per RT - VAP bundle addressed (Aspiration precautions, HOB >40) - daily SAT's and SBT assessment as tolerated - continue to wean per pulmonary driven protocols - sedation target is RASS 0 to -1 - continue prn analgesia per CPOT score - follow clinically re: fever curves / trend WBC - Avoid delirium (no benzodiazepines if they can be avoided) - Maintain sleep-wake cycle - enteral nutrition at goal rate as tolerated - continue accucheck's with glycemic control per SSI for target blood glucose goal of 140-180 mg/dL while critically ill; Avoid hypoglycemia - continue VTE prophylaxis with Heparin - continue stress ulcer prophylaxis with Famotidine - continue mobility protocols for pressure ulcer prophylaxis - continue fall precautions - continue wound care management per RN / WCT - Supportive transfusions to keep HgB>7g/dL - CXR's and ABG's prn - Continue to monitor neurologic function - Continue chronic home medications - Continue all supportive care ........ re-evaluate in am & prn CONDITION: CRITICAL PROGNOSIS: GUARDED CODE STATUS: FULL CODE The high probability of a clinically significant, sudden or life threatening deterioration of the [Respiratory, cardiovascular & neurological] system(s) required my full and direct attention, intervention and personal management. The aggregate critical care time was [32] minutes without overlap. Time includes spent on [x] Data Review and interpretation [x] Patient assessment and monitoring of vital signs [x] Documentation [x] Medication orders and management Subjective Date of service: 12/05/19 Principal diagnosis: Ac hypoxemic resp failure; Pneumonia; PUI COVID-19; CHF; COPD; HTN Interval history: Patient is seen today for: Acute hypoxemic respiratory failure; Adan. Pneumonia (CAP); PUI COVID-19 infection; AE-CHF; AE-COPD; H/O CVA; HTN Seen and examined at bedside; 24 hour events reviewed; nursing and respiratory care staff consulted; no adverse overnight events reported to me; resting peacefully in bed; still without bowel movement; chest PT ongoing at time of my examination; more coherent today; No N/V/F/C Objective Vital Signs - 12hr 12/05/19 12/05/19 12/05/19 00:00 00:16 00:30 Temperature Pulse Rate 89 107 H 94 H Pulse Rate [ 112 H From Monitor] Respiratory 12 21 16 Rate Respiratory 14 Rate [Chest] Blood Pressure 122/73 122/73 118/78 O2 Sat by Pulse 99 95 94 Oximetry 12/05/19 12/05/19 12/05/19 00:41 00:46 01:00 Temperature Pulse Rate 92 H 87 91 H Pulse Rate [ From Monitor] Respiratory 17 18 Rate Respiratory Rate [Chest] Blood Pressure 118/78 118/78 120/84 O2 Sat by Pulse 87 85 Oximetry 12/05/19 12/05/19 12/05/19 01:16 01:30 01:46 Temperature Pulse Rate 88 90 90 Pulse Rate [ From Monitor] Respiratory 15 18 17 Rate Respiratory Rate [Chest] Blood Pressure 120/84 120/81 120/81 O2 Sat by Pulse 98 90 Oximetry 12/05/19 12/05/19 12/05/19 02:00 02:16 02:30 Temperature Pulse Rate 111 H 94 H 96 H Pulse Rate [ From Monitor] Respiratory 24 11 L 17 Rate Respiratory Rate [Chest] Blood Pressure 124/87 124/87 127/79 O2 Sat by Pulse 97 100 Oximetry 12/05/19 12/05/19 12/05/19 02:46 03:00 03:13 Temperature 99.4 F Pulse Rate 94 H 95 H Pulse Rate [ From Monitor] Respiratory 15 14 Rate Respiratory Rate [Chest] Blood Pressure 127/79 113/69 O2 Sat by Pulse 98 Oximetry 09/12/20 09/12/20 09/12/20 03:16 03:30 03:46 Temperature Pulse Rate 95 H 95 H 94 H Pulse Rate [ From Monitor] Respiratory 19 15 18 Rate Respiratory Rate [Chest] Blood Pressure 113/69 116/70 116/70 O2 Sat by Pulse 98 96 98 Oximetry 12/05/19 12/05/19 12/05/19 04:00 04:16 04:21 Temperature Pulse Rate 92 H 94 H 93 H Pulse Rate [ 112 H From Monitor] Respiratory 17 15 Rate Respiratory Rate [Chest] Blood Pressure 119/72 119/72 119/72 O2 Sat by Pulse 99 98 99 Oximetry 12/05/19 12/05/19 12/05/19 04:30 04:46 05:00 Temperature Pulse Rate 96 H 94 H 95 H Pulse Rate [ From Monitor] Respiratory 15 15 15 Rate Respiratory Rate [Chest] Blood Pressure 126/76 126/76 131/78 O2 Sat by Pulse 96 98 98 Oximetry 12/05/19 12/05/19 12/05/19 05:16 05:30 05:38 Temperature Pulse Rate 99 H 97 H 101 H Pulse Rate [ From Monitor] Respiratory 15 13 Rate Respiratory Rate [Chest] Blood Pressure 131/78 119/77 119/77 O2 Sat by Pulse 98 98 Oximetry 12/05/19 12/05/19 12/05/19 05:46 06:00 06:16 Temperature Pulse Rate 89 97 H 95 H Pulse Rate [ From Monitor] Respiratory 12 21 21 Rate Respiratory Rate [Chest] Blood Pressure 119/77 128/80 128/80 O2 Sat by Pulse 98 87 87 Oximetry 12/05/19 12/05/19 12/05/19 06:30 06:46 07:00 Temperature Pulse Rate 100 H 95 H 120 H Pulse Rate [ From Monitor] Respiratory 20 14 21 Rate Respiratory Rate [Chest] Blood Pressure 109/88 109/88 109/88 O2 Sat by Pulse 88 94 96 Oximetry 12/05/19 12/05/19 12/05/19 07:16 07:30 07:46 Temperature Pulse Rate 103 H 100 H 98 H Pulse Rate [ From Monitor] Respiratory 14 18 15 Rate Respiratory Rate [Chest] Blood Pressure 121/91 120/75 120/75 O2 Sat by Pulse 97 96 97 Oximetry 12/05/19 12/05/19 12/05/19 07:58 08:00 08:16 Temperature 97.9 F Pulse Rate 94 H 112 H Pulse Rate [ 94 H From Monitor] Respiratory 13 21 Rate Respiratory Rate [Chest] Blood Pressure 122/74 122/74 O2 Sat by Pulse 97 97 Oximetry 12/05/19 12/05/19 12/05/19 08:25 08:30 08:46 Temperature Pulse Rate 93 H 92 H 93 H Pulse Rate [ From Monitor] Respiratory 14 17 Rate Respiratory Rate [Chest] Blood Pressure 122/74 126/82 126/82 O2 Sat by Pulse 96 93 98 Oximetry 12/05/19 12/05/19 12/05/19 09:00 09:16 09:30 Temperature Pulse Rate 92 H 91 H 92 H Pulse Rate [ From Monitor] Respiratory 14 15 15 Rate Respiratory Rate [Chest] Blood Pressure 135/83 135/83 127/82 O2 Sat by Pulse 96 96 96 Oximetry 12/05/19 12/05/19 12/05/19 09:46 10:00 10:16 Temperature Pulse Rate 91 H 93 H 92 H Pulse Rate [ From Monitor] Respiratory 15 16 17 Rate Respiratory Rate [Chest] Blood Pressure 127/82 133/86 133/86 O2 Sat by Pulse 97 96 97 Oximetry Constitutional: no acute distress, agitated, other (elderly and obese male, normocephalic with mildly increased respiratory effort at rest on MVS) Eyes: non-icteric ENT: oropharynx moist, other (ETT 24 cm JASON) Neck: supple, no JVD Effort: very labored Ascultation: Bilateral: diminished breath sounds, rhonchi (improved RLL air entry also) Percussion: Bilateral: not dull Cardiovascular: regular rate and rhythm (tachycardia to the 140s) Gastrointestinal: normoactive bowel sounds, soft, non-tender, non-distended Integumentary: normal Extremities: no cyanosis, no edema, pulses normal, no ischemia or petechiae Neurologic: non-focal exam (moves all extremities with extreme agitation), pupils equal and round, motor strength normal and Psychiatric: mood appropriate, affect normal CBC and BMP: 12/05/19 03:37 12/05/19 03:37 ABG, PT/INR, D-dimer: ABG ABG pH 7.439 (7.320-7.450) 12/02/19 12:58 POC ABG pCO2 45.1 mmHg (32.0-48.0) 12/02/19 12:58 ABG pCO2 43.4 mm Hg 11/30/19 04:56 POC ABG pO2 78.1 mmHg (83-108) L 12/02/19 12:58 ABG pO2 56.3 mm Hg (80.0-90.0) L 11/30/19 04:56 POC ABG HCO3 29.9 12/02/19 12:58 ABG O2 Saturation 91.5 % (95.0-99.0) L 11/30/19 04:56 PT/INR, D-dimer PT 12.7 Sec. (12.2-14.9) 11/25/19 05:11 INR 0.94 (0.87-1.13) 11/25/19 05:11 Abnormal lab findings: Abnormal Labs 11/24/19 11/24/19 11/24/19 02:53 02:53 03:45 WBC 14.3 H Hgb Hct RDW 17.2 H Lymph % (Auto) Haakon % (Auto) Haakon # Eos # Seg Neutrophils % Seg Neutrophils # Seg Neutrophils # Man 8.3 H Monocytes # (Manual) 0.9 H ABG pH 7.313 L POC ABG pO2 ABG pO2 102.8 H ABG HCO3 ABG O2 Saturation ABG Base Excess -2.9 L ABG Hemoglobin ABG Oxyhemoglobin Oxyhemoglobin 93.9 L Sodium Potassium Chloride BUN Creatinine Glucose 195 H POC Glucose Lactic Acid Calcium Phosphorus AST ALT Lactate Dehydrogenase CK-MB (CK-2) 4.3 H C-Reactive Protein NT-Pro-B Natriuret Pep 1181 H Total Protein Albumin Urine WBC (Auto) 11/24/19 11/24/19 11/24/19 04:53 04:53 10:37 WBC Hgb Hct RDW Lymph % (Auto) Haakon % (Auto) Haakon # Eos # Seg Neutrophils % Seg Neutrophils # Seg Neutrophils # Man Monocytes # (Manual) ABG pH POC ABG pO2 ABG pO2 ABG HCO3 ABG O2 Saturation ABG Base Excess ABG Hemoglobin ABG Oxyhemoglobin Oxyhemoglobin Sodium Potassium Chloride BUN Creatinine Glucose 162 H POC Glucose Lactic Acid 2.40 H* 2.50 H* Calcium Phosphorus AST ALT Lactate Dehydrogenase 240 H CK-MB (CK-2) C-Reactive Protein NT-Pro-B Natriuret Pep Total Protein Albumin Urine WBC (Auto) 11/24/19 11/24/19 11/24/19 12:21 14:50 19:54 WBC Hgb Hct RDW Lymph % (Auto) Haakon % (Auto) Haakon # Eos # Seg Neutrophils % Seg Neutrophils # Seg Neutrophils # Man Monocytes # (Manual) ABG pH POC ABG pO2 ABG pO2 ABG HCO3 ABG O2 Saturation ABG Base Excess ABG Hemoglobin ABG Oxyhemoglobin Oxyhemoglobin Sodium Potassium Chloride BUN Creatinine Glucose POC Glucose 145 H 143 H 124 H Lactic Acid Calcium Phosphorus AST ALT Lactate Dehydrogenase CK-MB (CK-2) C-Reactive Protein NT-Pro-B Natriuret Pep Total Protein Albumin Urine WBC (Auto) 11/25/19 11/25/19 11/25/19 00:18 03:18 05:11 WBC 13.7 H Hgb Hct RDW 17.1 H Lymph % (Auto) 10.8 L Haakon % (Auto) 8.7 H Haakon # 1.2 H Eos # Seg Neutrophils % 80.2 H Seg Neutrophils # 11.0 H Seg Neutrophils # Man Monocytes # (Manual) ABG pH 7.333 L POC ABG pO2 ABG pO2 61.2 L ABG HCO3 ABG O2 Saturation 90.2 L ABG Base Excess ABG Hemoglobin 13.7 L ABG Oxyhemoglobin Oxyhemoglobin 88.2 L Sodium Potassium Chloride BUN Creatinine Glucose POC Glucose 109 H Lactic Acid Calcium Phosphorus AST ALT Lactate Dehydrogenase CK-MB (CK-2) C-Reactive Protein NT-Pro-B Natriuret Pep Total Protein Albumin Urine WBC (Auto) 11/25/19 11/25/19 11/26/19 05:11 11:40 03:12 WBC Hgb Hct RDW Lymph % (Auto) Haakon % (Auto) Haakon # Eos # Seg Neutrophils % Seg Neutrophils # Seg Neutrophils # Man Monocytes # (Manual) ABG pH POC ABG pO2 ABG pO2 155.1 H ABG HCO3 27.8 H ABG O2 Saturation ABG Base Excess ABG Hemoglobin 12.2 L ABG Oxyhemoglobin Oxyhemoglobin Sodium Potassium Chloride BUN 23 H Creatinine Glucose 110 H POC Glucose 108 H Lactic Acid Calcium Phosphorus AST ALT Lactate Dehydrogenase CK-MB (CK-2) C-Reactive Protein NT-Pro-B Natriuret Pep Total Protein Albumin Urine WBC (Auto) 11/26/19 11/26/19 11/26/19 06:17 10:43 10:43 WBC 11.4 H Hgb Hct RDW 17.1 H Lymph % (Auto) Haakon % (Auto) Haakon # Eos # Seg Neutrophils % Seg Neutrophils # Seg Neutrophils # Man Monocytes # (Manual) ABG pH POC ABG pO2 ABG pO2 ABG HCO3 ABG O2 Saturation ABG Base Excess ABG Hemoglobin ABG Oxyhemoglobin Oxyhemoglobin Sodium Potassium Chloride BUN 29 H Creatinine Glucose POC Glucose 107 H Lactic Acid Calcium Phosphorus AST ALT Lactate Dehydrogenase CK-MB (CK-2) C-Reactive Protein NT-Pro-B Natriuret Pep Total Protein Albumin Urine WBC (Auto) 11/26/19 11/27/19 11/27/19 17:11 01:53 04:11 WBC Hgb Hct RDW Lymph % (Auto) Haakon % (Auto) Haakon # Eos # Seg Neutrophils % Seg Neutrophils # Seg Neutrophils # Man Monocytes # (Manual) ABG pH POC ABG pO2 ABG pO2 ABG HCO3 29.2 H ABG O2 Saturation ABG Base Excess 3.4 H ABG Hemoglobin 13.3 L ABG Oxyhemoglobin Oxyhemoglobin 94.5 L Sodium Potassium Chloride BUN Creatinine Glucose POC Glucose 113 H 108 H Lactic Acid Calcium Phosphorus AST ALT Lactate Dehydrogenase CK-MB (CK-2) C-Reactive Protein NT-Pro-B Natriuret Pep Total Protein Albumin Urine WBC (Auto) 11/27/19 11/28/19 11/28/19 05:27 05:00 05:25 WBC Hgb Hct RDW Lymph % (Auto) Haakon % (Auto) Haakon # Eos # Seg Neutrophils % Seg Neutrophils # Seg Neutrophils # Man Monocytes # (Manual) ABG pH POC ABG pO2 68.1 L ABG pO2 ABG HCO3 ABG O2 Saturation ABG Base Excess ABG Hemoglobin ABG Oxyhemoglobin 91.2 L Oxyhemoglobin Sodium Potassium Chloride BUN Creatinine Glucose POC Glucose 111 H 110 H Lactic Acid Calcium Phosphorus AST ALT Lactate Dehydrogenase CK-MB (CK-2) C-Reactive Protein NT-Pro-B Natriuret Pep Total Protein Albumin Urine WBC (Auto) 11/28/19 11/28/19 11/28/19 12:08 13:47 13:47 WBC 11.3 H Hgb Hct RDW 16.1 H Lymph % (Auto) Haakon % (Auto) 9.9 H Haakon # 1.1 H Eos # Seg Neutrophils % 71.4 H Seg Neutrophils # 8.1 H Seg Neutrophils # Man Monocytes # (Manual) ABG pH POC ABG pO2 ABG pO2 ABG HCO3 ABG O2 Saturation ABG Base Excess ABG Hemoglobin ABG Oxyhemoglobin Oxyhemoglobin Sodium Potassium Chloride BUN 23 H Creatinine Glucose 123 H POC Glucose 112 H Lactic Acid Calcium Phosphorus AST ALT Lactate Dehydrogenase CK-MB (CK-2) C-Reactive Protein NT-Pro-B Natriuret Pep Total Protein Albumin 3.7 L Urine WBC (Auto) 11/28/19 11/29/19 11/29/19 17:26 03:55 17:04 WBC Hgb Hct RDW Lymph % (Auto) Haakon % (Auto) Haakon # Eos # Seg Neutrophils % Seg Neutrophils # Seg Neutrophils # Man Monocytes # (Manual) ABG pH POC ABG pO2 ABG pO2 65.7 L ABG HCO3 28.3 H ABG O2 Saturation 93.9 L ABG Base Excess 3.6 H ABG Hemoglobin 13.3 L ABG Oxyhemoglobin Oxyhemoglobin 91.5 L Sodium Potassium Chloride BUN Creatinine Glucose POC Glucose 123 H 119 H Lactic Acid Calcium Phosphorus AST ALT Lactate Dehydrogenase CK-MB (CK-2) C-Reactive Protein NT-Pro-B Natriuret Pep Total Protein Albumin Urine WBC (Auto) 11/30/19 11/30/19 11/30/19 04:17 04:17 04:56 WBC 13.4 H Hgb Hct RDW 15.6 H Lymph % (Auto) Haakon % (Auto) Haakon # Eos # Seg Neutrophils % Seg Neutrophils # Seg Neutrophils # Man Monocytes # (Manual) ABG pH POC ABG pO2 ABG pO2 56.3 L ABG HCO3 29.3 H ABG O2 Saturation 91.5 L ABG Base Excess 4.7 H ABG Hemoglobin 12.1 L ABG Oxyhemoglobin Oxyhemoglobin 89.2 L Sodium 147 H Potassium Chloride BUN 30 H Creatinine Glucose 124 H POC Glucose Lactic Acid Calcium Phosphorus AST ALT Lactate Dehydrogenase CK-MB (CK-2) C-Reactive Protein NT-Pro-B Natriuret Pep Total Protein Albumin 3.8 L Urine WBC (Auto) 11/30/19 11/30/19 11/30/19 05:51 11:54 18:17 WBC Hgb Hct RDW Lymph % (Auto) Haakon % (Auto) Haakon # Eos # Seg Neutrophils % Seg Neutrophils # Seg Neutrophils # Man Monocytes # (Manual) ABG pH POC ABG pO2 ABG pO2 ABG HCO3 ABG O2 Saturation ABG Base Excess ABG Hemoglobin ABG Oxyhemoglobin Oxyhemoglobin Sodium Potassium Chloride BUN Creatinine Glucose POC Glucose 127 H 115 H 143 H Lactic Acid Calcium Phosphorus AST ALT Lactate Dehydrogenase CK-MB (CK-2) C-Reactive Protein NT-Pro-B Natriuret Pep Total Protein Albumin Urine WBC (Auto) 12/01/19 12/01/19 12/01/19 01:18 05:22 12:16 WBC Hgb Hct RDW Lymph % (Auto) Haakon % (Auto) Haakon # Eos # Seg Neutrophils % Seg Neutrophils # Seg Neutrophils # Man Monocytes # (Manual) ABG pH POC ABG pO2 ABG pO2 ABG HCO3 ABG O2 Saturation ABG Base Excess ABG Hemoglobin ABG Oxyhemoglobin Oxyhemoglobin Sodium Potassium 3.5 L Chloride 107.8 H BUN 37 H Creatinine Glucose 157 H POC Glucose 118 H 148 H Lactic Acid Calcium 8.2 L D Phosphorus AST 48 H ALT 60 H Lactate Dehydrogenase 194 H CK-MB (CK-2) C-Reactive Protein 8.50 H NT-Pro-B Natriuret Pep Total Protein 5.5 L Albumin 2.8 L Urine WBC (Auto) 12/01/19 12/02/19 12/02/19 18:04 00:05 05:16 WBC 11.4 H Hgb Hct RDW 15.9 H Lymph % (Auto) Haakon % (Auto) 9.9 H Haakon # 1.1 H Eos # Seg Neutrophils % 70.3 H Seg Neutrophils # 8.0 H Seg Neutrophils # Man Monocytes # (Manual) ABG pH POC ABG pO2 ABG pO2 ABG HCO3 ABG O2 Saturation ABG Base Excess ABG Hemoglobin ABG Oxyhemoglobin Oxyhemoglobin Sodium Potassium Chloride BUN Creatinine Glucose POC Glucose 143 H 107 H Lactic Acid Calcium Phosphorus AST ALT Lactate Dehydrogenase CK-MB (CK-2) C-Reactive Protein NT-Pro-B Natriuret Pep Total Protein Albumin Urine WBC (Auto) 12/02/19 12/02/19 12/02/19 05:16 06:03 11:52 WBC Hgb Hct RDW Lymph % (Auto) Haakon % (Auto) Haakon # Eos # Seg Neutrophils % Seg Neutrophils # Seg Neutrophils # Man Monocytes # (Manual) ABG pH POC ABG pO2 ABG pO2 ABG HCO3 ABG O2 Saturation ABG Base Excess ABG Hemoglobin ABG Oxyhemoglobin Oxyhemoglobin Sodium 146 H Potassium Chloride BUN 28 H Creatinine Glucose 123 H POC Glucose 110 H 152 H Lactic Acid Calcium Phosphorus AST ALT Lactate Dehydrogenase CK-MB (CK-2) C-Reactive Protein NT-Pro-B Natriuret Pep Total Protein Albumin Urine WBC (Auto) 12/02/19 12/02/19 12/02/19 12:58 17:58 23:36 WBC Hgb Hct RDW Lymph % (Auto) Haakon % (Auto) Haakon # Eos # Seg Neutrophils % Seg Neutrophils # Seg Neutrophils # Man Monocytes # (Manual) ABG pH POC ABG pO2 78.1 L ABG pO2 ABG HCO3 ABG O2 Saturation ABG Base Excess ABG Hemoglobin ABG Oxyhemoglobin Oxyhemoglobin Sodium Potassium Chloride BUN Creatinine Glucose POC Glucose 120 H 123 H Lactic Acid Calcium Phosphorus AST ALT Lactate Dehydrogenase CK-MB (CK-2) C-Reactive Protein NT-Pro-B Natriuret Pep Total Protein Albumin Urine WBC (Auto) 12/03/19 12/03/19 12/03/19 06:03 06:14 11:46 WBC Hgb Hct RDW Lymph % (Auto) Haakon % (Auto) Haakon # Eos # Seg Neutrophils % Seg Neutrophils # Seg Neutrophils # Man Monocytes # (Manual) ABG pH POC ABG pO2 ABG pO2 ABG HCO3 ABG O2 Saturation ABG Base Excess ABG Hemoglobin ABG Oxyhemoglobin Oxyhemoglobin Sodium Potassium Chloride BUN Creatinine Glucose POC Glucose 142 H 130 H Lactic Acid Calcium Phosphorus AST ALT Lactate Dehydrogenase CK-MB (CK-2) C-Reactive Protein NT-Pro-B Natriuret Pep Total Protein Albumin Urine WBC (Auto) 8.0 H 12/03/19 12/03/19 12/04/19 15:50 17:39 00:04 WBC Hgb Hct RDW Lymph % (Auto) Haakon % (Auto) Haakon # Eos # Seg Neutrophils % Seg Neutrophils # Seg Neutrophils # Man Monocytes # (Manual) ABG pH POC ABG pO2 ABG pO2 ABG HCO3 ABG O2 Saturation ABG Base Excess ABG Hemoglobin ABG Oxyhemoglobin Oxyhemoglobin Sodium Potassium Chloride BUN Creatinine Glucose POC Glucose 146 H 133 H Lactic Acid Calcium Phosphorus 2.40 L AST ALT Lactate Dehydrogenase CK-MB (CK-2) C-Reactive Protein NT-Pro-B Natriuret Pep Total Protein Albumin Urine WBC (Auto) 09/02/1112/04/19 12/04/19 03:58 03:58 05:22 WBC 12.5 H Hgb 11.2 L Hct 35.2 L RDW 16.0 H Lymph % (Auto) Haakon % (Auto) 9.6 H Haakon # 1.2 H Eos # 0.5 H Seg Neutrophils % Seg Neutrophils # 8.6 H Seg Neutrophils # Man Monocytes # (Manual) ABG pH POC ABG pO2 ABG pO2 ABG HCO3 ABG O2 Saturation ABG Base Excess ABG Hemoglobin ABG Oxyhemoglobin Oxyhemoglobin Sodium 146 H Potassium Chloride 108.6 H BUN 30 H Creatinine 0.7 L Glucose 121 H POC Glucose 132 H Lactic Acid Calcium Phosphorus AST ALT Lactate Dehydrogenase CK-MB (CK-2) C-Reactive Protein NT-Pro-B Natriuret Pep Total Protein Albumin Urine WBC (Auto) 12/04/19 12/04/19 12/05/19 13:26 18:43 00:19 WBC Hgb Hct RDW Lymph % (Auto) Haakon % (Auto) Haakon # Eos # Seg Neutrophils % Seg Neutrophils # Seg Neutrophils # Man Monocytes # (Manual) ABG pH POC ABG pO2 ABG pO2 ABG HCO3 ABG O2 Saturation ABG Base Excess ABG Hemoglobin ABG Oxyhemoglobin Oxyhemoglobin Sodium Potassium Chloride BUN Creatinine Glucose POC Glucose 185 H 156 H 150 H Lactic Acid Calcium Phosphorus AST ALT Lactate Dehydrogenase CK-MB (CK-2) C-Reactive Protein NT-Pro-B Natriuret Pep Total Protein Albumin Urine WBC (Auto) 12/05/19 12/05/19 12/05/19 03:37 03:37 05:14 WBC 16.3 H Hgb 11.4 L Hct RDW 15.6 H Lymph % (Auto) 9.9 L Haakon % (Auto) 9.7 H Haakon # 1.6 H Eos # Seg Neutrophils % 78.0 H Seg Neutrophils # 12.7 H Seg Neutrophils # Man Monocytes # (Manual) ABG pH POC ABG pO2 ABG pO2 ABG HCO3 ABG O2 Saturation ABG Base Excess ABG Hemoglobin ABG Oxyhemoglobin Oxyhemoglobin Sodium 146 H Potassium Chloride 107.2 H BUN 27 H Creatinine 0.7 L Glucose 171 H POC Glucose 168 H Lactic Acid Calcium Phosphorus AST ALT Lactate Dehydrogenase CK-MB (CK-2) C-Reactive Protein NT-Pro-B Natriuret Pep Total Protein Albumin Urine WBC (Auto) Chest x-ray: image reviewed (resolving RLL atelectasis) Allied health notes reviewed: nursing
--- NOTE | 2019-12-05 12:48 | Progress Note ---
Assessment and Plan Cultures: Blood culture 12/02/2019 negative Blood culture 11/24/2019 negative Urine culture 11/24/2019 negative COVID-19 negative x2 A/P: 64-year-old male past medical history hypertension, COPD, CAD, CHF with reduced ejection fraction admitted with acute hypoxic respiratory failure likely secondary to pneumonia #Acute hypoxemic respiratory failure: Likely secondary to pneumonia, COVID-19 testing negative x 2. Currently intubated. #Bilateral pneumonia: COVID-19 negative twice. Procalcitonin elevated, and new fevers. Cefepime switched to Meropenem 12/04/2019. #CHF #COPD Recs: -Continue IV meropenem 1g q8h, D2 -COVID negative x 2, d/c respiratory isolation -if febrile again, would get repeat blood and respiratory cultures Chet Saha MD, FACP [facility] ([facility] C: [phone] O: [phone] F: [phone] Subjective Date of service: 12/05/19 Principal diagnosis: Ac hypoxemic resp failure; Pneumonia; PUI COVID-19; CHF; COPD; HTN Interval history: Febrile last night up to 102.3 F. Remains intubated, sedated on the vent. Objective - Exam Narrative Exam: Physical Exam: Constitutional: sedated, intubated, on the vent Head, Ears, Nose: Normocephalic, atraumatic. External ears, nose normal Eyes: Conjunctivae/corneas clear. No icterus. No ptosis. Neck: intubated Oral: intubated Cardiovascular: S1, S2 + Respiratory: AE fair bilaterally and equal GI: Soft, bowel sounds + Musculoskeletal: No pedal edema, no cyanosis. Skin: No rash or abscess Hem/Lymphatic: No palpable cervical or supraclavicular nodes. No lymphangitis Psych: no agitation Neurological: sedated, intubated, on the vent, exam limited - Constitutional Vitals: Vital Signs Temp Pulse Resp BP Pulse Ox 97.8 F 91 H 17 127/83 97 12/05/19 12:00 12/05/19 12:01 12/05/19 10:16 12/05/19 12:01 12/05/19 12:01 Temperature -Last 24 Hours Temperature 97.8 F Temperature 97.9 F Temperature 99.4 F Temperature 98.9 F Temperature 102.3 F Temperature 100.3 F - Labs CBC & Chem 7: 12/05/19 03:37 12/05/19 03:37 Labs: Abnormal lab results 12/04/19 12/04/19 12/05/19 Range/Units 13:26 18:43 00:19 WBC (4.5-11.0) K/mm3 Hgb (11.8-15.2) gm/dl RDW (13.2-15.2) % Lymph % (Auto) (13.4-35.0) % Arroyo % (Auto) (0.0-7.3) % Arroyo # (0.0-0.8) K/mm3 Seg Neutrophils % (40.0-70.0) % Seg Neutrophils # (1.8-7.7) K/mm3 Sodium (137-145) mmol/L Chloride (98-107) mmol/L BUN (9-20) mg/dL Creatinine (0.8-1.3) mg/dL Glucose (75-100) mg/dL POC Glucose 185 H 156 H 150 H (70-105) 12/05/19 12/05/19 12/05/19 Range/Units 03:37 03:37 05:14 WBC 16.3 H (4.5-11.0) K/mm3 Hgb 11.4 L (11.8-15.2) gm/dl RDW 15.6 H (13.2-15.2) % Lymph % (Auto) 9.9 L (13.4-35.0) % Arroyo % (Auto) 9.7 H (0.0-7.3) % Arroyo # 1.6 H (0.0-0.8) K/mm3 Seg Neutrophils % 78.0 H (40.0-70.0) % Seg Neutrophils # 12.7 H (1.8-7.7) K/mm3 Sodium 146 H (137-145) mmol/L Chloride 107.2 H (98-107) mmol/L BUN 27 H (9-20) mg/dL Creatinine 0.7 L (0.8-1.3) mg/dL Glucose 171 H (75-100) mg/dL POC Glucose 168 H (70-105) - Imaging and cardiology Chest x-ray: report reviewed, image reviewed (RLL pneumonia)
[2019-12-05] MEDS: ACETAMINOPHEN 325 MG/10.15 ML ORAL LIQD UNIT DOSE FEEDTUBE PRN (16:36)
[2019-12-05] MEDS: INSULIN LISPRO 100 UNIT/ML VIAL 3 mL SUB-Q SCH (18:54)
[2019-12-05] MEDS: QUEtiapine 100 MG TAB PO SCH (21:33)
[2019-12-05] MEDS: POLYETHYLENE GLYCOL 3350 17 GM POWDER PO SCH (21:33)
[2019-12-06] MEDS: METOPROLOL TARTRATE 5 MG/5 ML INJ IV SCH ×4 (00:45→18:04)
[2019-12-06] MEDS: fentaNYL DRIP Premix 2,000 MCG/100 ML BAG IV SCH ×4 (00:52→20:18)
[2019-12-06] MEDS: INSULIN LISPRO 100 UNIT/ML VIAL 3 mL SUB-Q SCH ×4 (01:56→18:06)
[2019-12-06] MEDS: MEROPENEM/NS 1 GRAM/100 ML 1 GRAM/100 ML BAG IV SCH ×2 (05:38→13:42)
[2019-12-06] MEDS: HEPARIN 5,000 UNIT/1 ML VIAL SUB-Q SCH ×3 (05:39→22:25)
[2019-12-06 06:44] LABS: Basophils # (Auto) 0.1 K/mm3 (0.0-0.1); Basophils % (Auto) 0.8 % (0.0-1.8); Eosinophils # (Auto) 0.2 K/mm3 (0.0-0.4); Eosinophils % (Auto) 1.5 % (0.0-4.3); Hemoglobin 10.8 gm/dl (11.8-15.2); Lymphocytes # (Auto) 1.6 K/mm3 (1.2-5.4); Lymphocytes % (Auto) 10.7 % (13.4-35.0); Mean Corpuscular HGB Conc 32 % (32-34); Mean Corpuscular Volume 93 fl (84-94); Monocytes # (Auto) 1.2 K/mm3 (0.0-0.8); Monocytes % (Auto) 8.3 % (0.0-7.3); Platelet Count 224 K/mm3 (140-440); Red Blood Count 3.66 M/mm3 (3.65-5.03); Red Cell Distribution Width 15.6 % (13.2-15.2)
[2019-12-06 07:00] LABS: Blood Urea Nitrogen 27 mg/dL (9-20); Hemolysis Index 2
[2019-12-06 07:02] LABS: BUN/Creatinine Ratio 39
--- NOTE | 2019-12-06 09:24 | Progress Note ---
Assessment and Plan Assessment and plan: Assessment: COVID-19 test; 11/24/2019; negative 11/26/2019; negative -Acute hypoxemic respiratory failure -Bilateral pneumonia, community acquired, -Aspiration Pneumonia -Sustained SVT, on amiodarone -Acute on chronic systolic congestive heart failure -History of cerebrovascular accident. -Tobacco use disorder -Alcohol abuse with DT -Acute chronic obstructive pulmonary disease exacerbation. -Hypertension and hypertensive urgency at presentation. -History of arthritis. -Leukocytosis with possible sepsis. -Lactic acidosis. -Oropharyngeal dysphagia -S/P Knee surgery -History of peptic Ulcer Surgery -DVT prophylaxis Plan Continue ventilatory support Wean as tolerated and extubate., Pulmonary critical care following Completed ceftriaxone and azithromycin for total 5 days per ID ID started cefepime and Vanco Continue anti-failure medications, cardiology following cont Steroids, Continue diuresis Aspiration precautions DVT/GI prophy Heparin/Protonix Plan of care reviewed with the patient's nurse Closely monitor the patient and adjust management as needed The high probability of a clinically significant, sudden or life threatening deterioration of the [Respiratory, cardiovascular & neurological] system(s) required my full and direct attention, intervention and personal management. The aggregate critical care time was [33] minutes without overlap. Time includes spent on [x] Data Review and interpretation [x] Patient assessment and monitoring of vital signs [x] Documentation [x] Medication orders and management 11/25: Leukocytosis improving. Continue current management anticipate extubation possible today. 11/26. Still intubated. Failed SBT yesterday. Repeat COVID-19 test is negative. 11/27. CT head ordered for possible neuro status change is negative. More responsive as the day progressed as per RN. Chest xray today shows interval improvement. He is still on antibiotics - will complete regimen today. 11/28: Considering difficult extubation and severe cardiomyopathy, will obtain cardiology consult. Aspiration precautions, tube feeds held, continue antibiotics. 11/29: Still with intermittent fever but improving imaging, continue diuresis. 11/30; Extremely agitated when placed on PSV- SVT, hypertension. Patiet acknowledged that he drinks. IV Ativan given, CIWA protocol initiated. 12 lead ordered showed SVT, one dose of amiodarone ordered. continue to follow up cardiology recommendation 12/01: Patient remains on mechanical ventilation, getting SBT trial. Remains in SVT, started on amiodarone drip by cardiology. 12/02; patient is on mechanical ventilation and on spontaneous breathing trial. Cardiology started the patient on PO amiodarone. Patient is on cefepime. 12/03: patient is on mechanical ventilation. Cardiology started the patient on PO amiodarone for SVT. Patient is on cefepime, no fever overnight. 12/04: Patient is sedated and on mechanical ventilation. Patient had fever yesterday afternoon 102.3, ID changed his cefepime to meropenem. Heart rate is controlled, cardiology is following. Patient has paroxysmal atrial fibrillation and on amiodarone and metoprolol, subcu heparin for anticoagulation and will need oral anticoagulation once stable. Brief history 64-year-old male patient with known history of hypertension, COPD, history of coronary artery disease, CHF with ejection fraction of 20 to 25% in August 2018 was admitted through emergency room with presenting history of of shortness of breath. Patient was found to be hypoxic and in respiratory distress. Patient was placed on CPAP in route to the hospital. Oxygen saturation was said to be 88%. Started on Solu-Medrol, Lasix and magnesium in ED, patient was also found to be lethargic with an oxygen saturation of about 91% on CPAP. He was subsequently intubated. Work-up in the emergency room including chest x-ray reveals bilateral pneumonia. He had leukocytosis and an elevated BNP. Patient's co-test x2, receiving antibiotics for pneumonia, kamar intubated on ventilatory support History Interval history: I have seen and examined the patient at the bedside in ICU Patient's chart and medications reviewed Patient remains intubated on ventilatory support No new overnight events reported by the nursing Vital signs noted Hospitalist Physical - Constitutional Vitals: Temp Pulse Resp BP Pulse Ox 99.6 F 92 H 16 119/70 100 12/06/19 08:00 12/06/19 08:30 12/06/19 08:30 12/06/19 08:30 12/06/19 08:30 General appearance: Present: no acute distress, well-nourished, other (Inntubated) - EENT Eyes: Present: PERRL, EOM intact - Neck Neck: Present: supple, normal ROM - Respiratory Respiratory effort: normal Respiratory: bilateral: diminished, rhonchi, negative: rales, wheezing - Cardiovascular Rhythm: regular Heart Sounds: Present: S1 & S2 - Extremities Extremities: no ischemia, No edema - Abdominal General gastrointestinal: soft, non-tender, non-distended, normal bowel sounds - Integumentary Integumentary: Present: clear, warm - Psychiatric Psychiatric: appropriate mood/affect, cooperative - Neurologic Neurologic: CNII-XII intact, moves all extremities HEART Score - HEART Score Troponin: Troponin T < 0.010 ng/mL (0.00-0.029) 11/24/19 02:53 Results - Labs CBC & Chem 7: 12/06/19 05:24 12/06/19 05:24 Labs: Laboratory Last Values WBC 14.9 K/mm3 (4.5-11.0) H 12/06/19 05:24 RBC 3.66 M/mm3 (3.65-5.03) 12/06/19 05:24 Hgb 10.8 gm/dl (11.8-15.2) L 12/06/19 05:24 Hct 34.0 % (35.5-45.6) L 12/06/19 05:24 MCV 93 fl (84-94) 12/06/19 05:24 MCH 30 pg (28-32) 12/06/19 05:24 MCHC 32 % (32-34) 12/06/19 05:24 RDW 15.6 % (13.2-15.2) H 12/06/19 05:24 Plt Count 224 K/mm3 (140-440) 12/06/19 05:24 Lymph % (Auto) 10.7 % (13.4-35.0) L 12/06/19 05:24 [place] % (Auto) 8.3 % (0.0-7.3) H 12/06/19 05:24 Eos % (Auto) 1.5 % (0.0-4.3) 12/06/19 05:24 Baso % (Auto) 0.8 % (0.0-1.8) 12/06/19 05:24 Lymph # 1.6 K/mm3 (1.2-5.4) 12/06/19 05:24 [place] # 1.2 K/mm3 (0.0-0.8) H 12/06/19 05:24 Eos # 0.2 K/mm3 (0.0-0.4) 12/06/19 05:24 Baso # 0.1 K/mm3 (0.0-0.1) 12/06/19 05:24 Add Manual Diff Complete 11/24/19 02:53 Total Counted 100 11/24/19 02:53 Seg Neutrophils % 78.7 % (40.0-70.0) H 12/06/19 05:24 Seg Neuts % (Manual) 58.0 % (40.0-70.0) 11/24/19 02:53 Band Neutrophils % 0 % 11/24/19 02:53 Lymphocytes % (Manual) 33.0 % (13.4-35.0) 11/24/19 02:53 Reactive Lymphs % (Man) 0 % 11/24/19 02:53 Monocytes % (Manual) 6.0 % (0.0-7.3) 11/24/19 02:53 Eosinophils % (Manual) 3.0 % (0.0-4.3) 11/24/19 02:53 Basophils % (Manual) 0 % (0.0-1.8) 11/24/19 02:53 Metamyelocytes % 0 % 11/24/19 02:53 Myelocytes % 0 % 11/24/19 02:53 Promyelocytes % 0 % 11/24/19 02:53 Blast Cells % 0 % 11/24/19 02:53 Nucleated RBC % Not Reportable 11/24/19 02:53 Seg Neutrophils # 11.7 K/mm3 (1.8-7.7) H 12/06/19 05:24 Seg Neutrophils # Man 8.3 K/mm3 (1.8-7.7) H 11/24/19 02:53 Band Neutrophils # 0.0 K/mm3 11/24/19 02:53 Lymphocytes # (Manual) 4.7 K/mm3 (1.2-5.4) 11/24/19 02:53 Abs React Lymphs (Man) 0.0 K/mm3 11/24/19 02:53 Monocytes # (Manual) 0.9 K/mm3 (0.0-0.8) H 11/24/19 02:53 Eosinophils # (Manual) 0.4 K/mm3 (0.0-0.4) 11/24/19 02:53 Basophils # (Manual) 0.0 K/mm3 (0.0-0.1) 11/24/19 02:53 Metamyelocytes # 0.0 K/mm3 11/24/19 02:53 Myelocytes # 0.0 K/mm3 11/24/19 02:53 Promyelocytes # 0.0 K/mm3 11/24/19 02:53 Blast Cells # 0.0 K/mm3 11/24/19 02:53 WBC Morphology Not Reportable 11/24/19 02:53 Hypersegmented Neuts Not Reportable 11/24/19 02:53 Hyposegmented Neuts Not Reportable 11/24/19 02:53 Hypogranular Neuts Not Reportable 11/24/19 02:53 Smudge Cells Not Reportable 11/24/19 02:53 Toxic Granulation Not Reportable 11/24/19 02:53 Toxic Vacuolation Not Reportable 11/24/19 02:53 Dohle Bodies Not Reportable 11/24/19 02:53 Pelger-Huet Anomaly Not Reportable 11/24/19 02:53 Hector Rods Not Reportable 11/24/19 02:53 Platelet Estimate Consistent w auto 11/24/19 02:53 Clumped Platelets Not Reportable 11/24/19 02:53 Plt Clumps, EDTA Not Reportable 11/24/19 02:53 Large Platelets Not Reportable 11/24/19 02:53 Giant Platelets Not Reportable 11/24/19 02:53 Platelet Satelliting Not Reportable 11/24/19 02:53 Plt Morphology Comment Not Reportable 11/24/19 02:53 RBC Morphology Not Reportable 11/24/19 02:53 Dimorphic RBCs Not Reportable 11/24/19 02:53 Polychromasia Not Reportable 11/24/19 02:53 Hypochromasia Not Reportable 11/24/19 02:53 Poikilocytosis Not Reportable 11/24/19 02:53 Anisocytosis Few 11/24/19 02:53 Microcytosis Not Reportable 11/24/19 02:53 Macrocytosis Not Reportable 11/24/19 02:53 Spherocytes Not Reportable 11/24/19 02:53 Pappenheimer Bodies Not Reportable 11/24/19 02:53 Sickle Cells Not Reportable 11/24/19 02:53 Target Cells Not Reportable 11/24/19 02:53 Tear Drop Cells Not Reportable 11/24/19 02:53 Ovalocytes Not Reportable 11/24/19 02:53 Helmet Cells Not Reportable 11/24/19 02:53 Gottlieb-Pierron Bodies Not Reportable 11/24/19 02:53 Perham Rings Not Reportable 11/24/19 02:53 Marshes Siding Cells Not Reportable 11/24/19 02:53 Bite Cells Not Reportable 11/24/19 02:53 Crenated Cell Not Reportable 11/24/19 02:53 Elliptocytes Not Reportable 11/24/19 02:53 Acanthocytes (Spur) Not Reportable 11/24/19 02:53 Rouleaux Not Reportable 11/24/19 02:53 Hemoglobin C Crystals Not Reportable 11/24/19 02:53 Schistocytes Not Reportable 11/24/19 02:53 Malaria parasites Not Reportable 11/24/19 02:53 Clifford Bodies Not Reportable 11/24/19 02:53 Hem Pathologist Commnt No 11/24/19 02:53 PT 12.7 Sec. (12.2-14.9) 11/25/19 05:11 INR 0.94 (0.87-1.13) 11/25/19 05:11 ABG pH 7.439 (7.320-7.450) 12/02/19 12:58 POC ABG pCO2 45.1 mmHg (32.0-48.0) 12/02/19 12:58 ABG pCO2 43.4 mm Hg 11/30/19 04:56 POC ABG pO2 78.1 mmHg (83-108) L 12/02/19 12:58 ABG pO2 56.3 mm Hg (80.0-90.0) L 11/30/19 04:56 POC ABG HCO3 29.9 12/02/19 12:58 ABG HCO3 29.3 mmol/L (20.0-26.0) H 11/30/19 04:56 ABG O2 Saturation 91.5 % (95.0-99.0) L 11/30/19 04:56 ABG O2 Content 15.1 (0.0-44) 11/30/19 04:56 POC ABG Base Excess 5.0 12/02/19 12:58 ABG Base Excess 4.7 mmol/L (-2.0-3.0) H 11/30/19 04:56 ABG Hemoglobin 13.6 (12.0-17.5) 12/02/19 12:58 ABG Oxyhemoglobin 94.7 (94-98) 12/02/19 12:58 ABG Carboxyhemoglobin 2.2 % (0.0-5.0) 11/30/19 04:56 ABG Methemoglobin 0 (0.0-1.5) 12/02/19 12:58 Oxyhemoglobin 89.2 % (95.0-99.0) L 11/30/19 04:56 Carboxyhemoglobin 1.3 (0.5-1.5) 12/02/19 12:58 FiO2 50 12/02/19 12:58 Sodium 148 mmol/L (137-145) H 12/06/19 05:24 Potassium 5.1 mmol/L (3.6-5.0) H 12/06/19 05:24 Chloride 107.6 mmol/L (98-107) H 12/06/19 05:24 Carbon Dioxide 30 mmol/L (22-30) 12/06/19 05:24 Anion Gap 16 mmol/L 12/06/19 05:24 BUN 27 mg/dL (9-20) H 12/06/19 05:24 Creatinine 0.7 mg/dL (0.8-1.3) L 12/06/19 05:24 Estimated GFR > 60 ml/min 12/06/19 05:24 BUN/Creatinine Ratio 39 % 12/06/19 05:24 Glucose 155 mg/dL (75-100) H 12/06/19 05:24 POC Glucose 157 (70-105) H 12/06/19 05:25 Lactic Acid 2.50 mmol/L (0.7-2.0) H* 11/24/19 10:37 Calcium 10.0 mg/dL (8.4-10.2) 12/06/19 05:24 Phosphorus 2.60 mg/dL (2.5-4.5) 12/06/19 05:24 Magnesium 2.30 mg/dL (1.7-2.3) 12/01/19 12:16 Ferritin 84.4 ng/mL (30.0-300.0) 11/24/19 04:53 Total Bilirubin 0.50 mg/dL (0.1-1.2) 12/01/19 12:16 AST 48 units/L (5-40) H 12/01/19 12:16 ALT 60 units/L (7-56) H 12/01/19 12:16 Alkaline Phosphatase 45 units/L (35-129) 12/01/19 12:16 Lactate Dehydrogenase 194 units/L (91-180) H 12/01/19 12:16 Total Creatine Kinase 141 units/L (55-170) 11/24/19 02:53 CK-MB (CK-2) 4.3 ng/mL (0.0-4.0) H 11/24/19 02:53 CK-MB (CK-2) Rel Index 3.0 (0-4) 11/24/19 02:53 Troponin T < 0.010 ng/mL (0.00-0.029) 11/24/19 02:53 C-Reactive Protein 8.50 mg/dL (0.00-1.30) H 12/01/19 12:16 NT-Pro-B Natriuret Pep 286.1 pg/mL (0-900) 11/29/19 15:37 Total Protein 5.5 g/dL (6.3-8.2) L 12/01/19 12:16 Albumin 2.8 g/dL (3.9-5) L 12/01/19 12:16 Albumin/Globulin Ratio 1.0 % 12/01/19 12:16 Procalcitonin 1.59 ng/mL (<0.15) 12/02/19 05:16 Urine Color Cecy (Yellow) 12/03/19 06:03 Urine Turbidity Clear (Clear) 12/03/19 06:03 Urine pH 5.0 (5.0-7.0) 12/03/19 06:03 Ur Specific [place] 1.030 (1.003-1.030) 12/03/19 06:03 Urine Protein <15 mg/dl mg/dL (Negative) 12/03/19 06:03 Urine Glucose (UA) Neg mg/dL (Negative) 12/03/19 06:03 Urine Ketones Neg mg/dL (Negative) 12/03/19 06:03 Urine Blood Neg (Negative) 12/03/19 06:03 Urine Nitrite Neg (Negative) 12/03/19 06:03 Urine Bilirubin Neg (Negative) 12/03/19 06:03 Urine Urobilinogen 4.0 mg/dL (<2.0) 12/03/19 06:03 Ur Leukocyte Esterase Neg (Negative) 12/03/19 06:03 Urine WBC (Auto) 8.0 /HPF (0.0-6.0) H 12/03/19 06:03 Urine RBC (Auto) 2.0 /HPF (0.0-6.0) 12/03/19 06:03 Urine Bacteria (Auto) 1+ /HPF (Negative) 12/03/19 06:03 Urine Mucus 1+ /HPF 12/03/19 06:03 Coronavirus (PCR) Negative (Negative) 11/26/19 08:26 Microbiology: Microbiology 12/02/19 20:32 Peripheral/Venous Blood Culture - Preliminary NO GROWTH AFTER 72 HOURS 12/02/19 20:05 Peripheral/Venous Blood Culture - Preliminary NO GROWTH AFTER 72 HOURS 12/04/19 14:40 Tracheal Aspirate Sputum Culture - Preliminary Gram Negative Satish - Diagnostic Impressions Diagnostic Impressions: Echocardiogram 11/29/19 07:37 Transthoracic Echocardiogram Indication: CHF BP: 116/72 HR: 33 Conclusions *The study is technically limited due to poor acoustic windows. *Global left ventricular systolic function is normal. *The estimated ejection fraction is 50-55%. *Mild concentric left ventricular hypertrophy is observed. *There is trace of mitral regurgitation. *There is mild tricuspid regurgitation. Findings Procedure Info: The study quality is poor. The study is technically limited due to poor acoustic windows. The study is technically limited due to patient body habitus. Left Ventricle: The left ventricular chamber size is normal. Mild concentric left ventricular hypertrophy is observed. Global left ventricular systolic function is normal. The estimated ejection fraction is 50-55%. Left Atrium: The left atrial chamber size is normal. Right Ventricle: The right ventricular cavity size is normal. Right Atrium: The right atrial cavity size is normal. Aortic Valve: The aortic valve leaflets are moderately thickened. There is trace of aortic regurgitation. There is no evidence of aortic stenosis. Mitral Valve: The mitral valve leaflets are mildly thickened. There is trace of mitral regurgitation. There is no evidence of mitral stenosis. Tricuspid Valve: There is mild tricuspid regurgitation. No pulmonary hypertension is noted. Pulmonic Valve: There is trace pulmonic regurgitation. Pericardium: There is no pericardial effusion. Aorta: There is no dilatation of the aortic root. Venous: The inferior vena cava appears normal in size. Contrast: Definity was used to optimize study. Intravenous contrast was used to enhance endocardial border definition. Measurements Chambers 2D Name Value Normal Range Ao root diameter (2D) 3.4 cm (2 - 3.7) Aortic Valve Name Value Normal Range AV Vmax 0.98 m/sec - AV VTI 16.76 cm - AV peak gradient 3.83 mmHg - AV mean gradient 2.57 mmHg - LVOT diameter 3.11 cm - LVOT Vmax 0.68 m/sec - LVOT VTI 11.52 cm - LVOT peak gradient 1.84 mmHg - LVOT mean gradient 1.27 mmHg - SV LVOT 87.31 ml - MALOU (continuity Vmax) 5.24 cm2 - MALOU (continuity VTI) 5.21 cm2 - Tricuspid Valve Name Value Normal Range IVC diameter 2.24 cm (1.2 - 2.3) Hoffman/IV: Voiding Method Indwelling Catheter IV Catheter Type [Left Hand] INT / Saline Lock IV Catheter Type [Left Wrist] INT / Saline Lock IV Catheter Type [Right INT / Saline Lock Antecubital] Active Medications - Current Medications Current Medications: Generic Name Dose Route Start Last Admin Trade Name Freq PRN Reason Stop Dose Admin Acetaminophen 650 mg 11/25/19 17:27 12/05/19 16:36 Tylenol FEEDTUBE 650 mg Q6H PRN Administration Pain, Mild (1-3) Amiodarone HCl 200 mg 12/04/19 14:00 12/05/19 21:33 Cordarone PO 200 mg BID CAR Administration Docusate Sodium 100 mg 12/02/19 22:00 12/05/19 21:33 Colace FEEDTUBE 100 mg BID CAR Administration Famotidine 20 mg 11/25/19 10:00 12/05/19 21:33 Pepcid PO 20 mg BID CAR Administration Fentanyl 50 mcg 11/24/19 09:55 Sublimaze IV Q10MIN PRN ANALGESIA Haloperidol Lactate 5 mg 12/01/19 10:23 Haldol IV Q1H PRN Unrespon. to mult. doses BZD's Heparin Sodium (Porcine) 5,000 unit 11/24/19 06:00 12/06/19 05:39 Heparin SUB-Q 5,000 unit Q8HR CAR Administration Hydrophilic Ointment 1 applic 11/24/19 02:23 Vaseline Lip Therapy TP Q2HR PRN Dry Lips Fentanyl Citrate 2,000 mcg in 100 mls @ 5.67 mls/hr 11/24/19 10:00 12/06/19 08:25 Fentanyl Drip Premix IV 3 mcg/kg/hr TITR CAR 17.01 mls/hr Administration Protocol 1 MCG/KG/HR Propofol 1,000 mg in 100 mls @ 3.402 mls/hr 11/28/19 17:25 Diprivan 10 Mg/Ml IV TITR CAR Protocol 5 MCG/KG/MIN MEROPENEM/NS 1 GRAM/100 ML 1 gram in 100 mls @ 100 mls/hr 12/04/19 14:00 12/06/19 05:38 Merrem/Ns 1 Gram/100 Ml IV 100 mls/hr Q8HR CAR Administration Protocol Insulin Human Lispro 0 unit 12/05/19 19:00 12/06/19 08:45 Humalog SUB-Q 1 unit Q6H CAR Administration Protocol Lorazepam 2 mg 12/01/19 10:23 Ativan IV Q1H PRN CIWA-Ar 8-15 Lorazepam 4 mg 12/01/19 10:23 Ativan IV Q1H PRN CIWA-Ar 16-25 Lorazepam 4 mg 12/01/19 10:23 Ativan IV Q15MIN PRN CIWA-Ar >25 Metoprolol Tartrate 2.5 mg 12/02/19 12:00 12/06/19 05:38 Metoprolol IV 2.5 mg Q6HR CAR Administration Multi-Ingred Cream/Lotion/Oil/Oint 1 applic 11/24/19 02:23 Artificial Tears Ophth Oint OU Q4HR PRN Dry Eye(s) Ondansetron HCl 4 mg 11/24/19 05:31 Zofran IV Q8H PRN Nausea And Vomiting Polyethylene Glycol 17 gm 12/04/19 22:00 12/05/19 21:33 Miralax 3350 PO 17 gm QHS CAR Administration Quetiapine Fumarate 100 mg 11/28/19 22:00 12/05/19 21:33 Seroquel PO 100 mg QHS CAR Administration Sodium Chloride 10 ml 11/24/19 10:00 12/05/19 21:33 Sodium Chloride Flush Syringe 10 Ml IV 10 ml BID CAR Administration Sodium Chloride 10 ml 11/24/19 05:31 Sodium Chloride Flush Syringe 10 Ml IV PRN PRN LINE FLUSH Nutrition/Malnutrition Assess - Dietary Evaluation Nutrition/Malnutrition Findings: Nutrition Notes Start: 11/24/19 12:22 Freq: Status: Active Protocol: Document 12/01/19 13:35 HEATHER (Rec: 12/01/19 13:46 HEATHER [id number]) Co-Sign 12/01/19 13:35 LP Nutrition Notes Initial or Follow up Reassessment Current Diagnosis Coronary Artery Disease,Heart Failure,Respiratory Failure, Stroke,Hyperlipidemia Current Diet TF Vital HP 65ml/hr Labs/Tests Reviewed Pertinent Medications Lasix Height 6 ft 2 in Weight 113.39 kg [place] Body Weight (kg) 86.36 BMI 32.1 Weight Status Obese Subjective/Other Information Per RN, pt is tolerating TF at goal rate. Pt remains on vent . Percent of energy/protein needs met: 98%/79% Burn Absent Trauma Absent GI Symptoms None Usual Diet at Home unknown Skin Integrity/Comment intact Current % PO Negligible Minimum of two criteria No physical signs of malnutrition #1 Nutrition Diagnosis Inadequate oral intake Diagnosis Progress(for reassessment Continues documentation) Is patient on ventilator? Yes Is Patient Ambulatory and/or Out of Bed No REE-([facility]-confined to bed) 2403.072 Kcal/Kg value to use for calculation 14 Approximate Energy Requirements Using 1587 kcal/Kg Calculation Used for Recommendations Kcal/kg Additional Notes Protein needs 173g (up to 2g/ kg IBW) Fluid needs are 1.5L Nutrition Intervention Change Diet Order: Continue TF Nutrition Support: Vital HP at 65ml/hr Flush 50ml q4hr Kcal 1,560 Protein (gm) 114 Fluid (mL) 1,304 % RDI: 100 Goal #1 TF will provide at least 65-70 % of energy needs and 80% of protein needs. Goal #2 TF tolerance Anticipated Discharge Needs: unable to determine at this time Follow-Up By: 12/08/19 Additional Comments F/u for stable TF and wt
[2019-12-06] MEDS: AMIODARONE 200 MG TAB PO SCH ×2 (09:41→22:20)
[2019-12-06] MEDS: FAMOTIDINE 20 MG TAB PO SCH ×2 (09:41→22:20)
[2019-12-06] MEDS: DOCUSATE SODIUM 100 MG/10 ML ORAL LIQD FEEDTUBE SCH ×2 (09:41→22:20)
--- NOTE | 2019-12-06 13:01 | Progress Note ---
Assessment and Plan Acute hypoxemic respiratory failure Bilateral pneumonia, community acquired. Person under investigation for COVID-19 infection. Acute congestive heart failure exacerbation. History of cerebrovascular accident. Acute chronic obstructive pulmonary disease exacerbation. Hypertension and hypertensive urgency at presentation. History of arthritis. Leukocytosis. Lactic acidosis. Oropharyngeal dysphagia - repeat Mag citrate 300 mls X 1 - repeat dulcolax suppository thereafter - repeat CXR in am - reduced Peep to 8 cm H2O - continue chest PT to RLL region - resume SBT's as tolerated now - PO4 level WNL - AMS may be a rate limiting step to safe extubation but is improving - continue low dose seroquel - COVID isolation per facility protocol - free water for hypernatremia - continue care as below otherwise; - continue diuresis while following electrolytes / I's & O's - continue to wean oxygen for O2 sat's > 92% - continue bronchodilators with pulmonary hygiene per RT - VAP bundle addressed (Aspiration precautions, HOB >40) - daily SAT's and SBT assessment as tolerated - continue to wean per pulmonary driven protocols - sedation target is RASS 0 to -1 - continue prn analgesia per CPOT score - follow clinically re: fever curves / trend WBC - Avoid delirium (no benzodiazepines if they can be avoided) - Maintain sleep-wake cycle - enteral nutrition at goal rate as tolerated - continue accucheck's with glycemic control per SSI for target blood glucose goal of 140-180 mg/dL while critically ill; Avoid hypoglycemia - continue VTE prophylaxis with Heparin - continue stress ulcer prophylaxis with Famotidine - continue mobility protocols for pressure ulcer prophylaxis - continue fall precautions - continue wound care management per RN / WCT - Supportive transfusions to keep HgB>7g/dL - CXR's and ABG's prn - Continue to monitor neurologic function - Continue chronic home medications - Continue all supportive care ........ re-evaluate in am & prn CONDITION: CRITICAL PROGNOSIS: GUARDED CODE STATUS: FULL CODE The high probability of a clinically significant, sudden or life threatening deterioration of the [Respiratory, cardiovascular & neurological] system(s) required my full and direct attention, intervention and personal management. The aggregate critical care time was [36] minutes without overlap. Time includes spent on [x] Data Review and interpretation [x] Patient assessment and monitoring of vital signs [x] Documentation [x] Medication orders and management Subjective Date of service: 12/06/19 Principal diagnosis: Ac hypoxemic resp failure; Pneumonia; PUI COVID-19; CHF; COPD; HTN Interval history: Patient is seen today for: Acute hypoxemic respiratory failure; Adan. Pneumonia (CAP); PUI COVID-19 infection; AE-CHF; AE-COPD; H/O CVA; HTN Seen and examined at bedside; 24 hour events reviewed; nursing and respiratory care staff consulted; no adverse overnight events reported to me; resting peacefully in bed; still no BM's; on full support; somnolent; no N/V/F/C Objective Vital Signs - 12hr 12/06/19 12/06/19 12/06/19 01:00 01:15 01:30 Temperature Pulse Rate 77 77 76 Pulse Rate [ From Monitor] Respiratory 17 17 15 Rate Blood Pressure 102/65 102/65 104/66 O2 Sat by Pulse 100 99 99 Oximetry 12/06/19 12/06/19 12/06/19 01:45 02:00 02:15 Temperature Pulse Rate 76 77 77 Pulse Rate [ From Monitor] Respiratory 11 L 21 14 Rate Blood Pressure 104/66 109/67 109/67 O2 Sat by Pulse 100 99 99 Oximetry 12/06/19 12/06/19 12/06/19 02:31 02:45 03:00 Temperature Pulse Rate 98 H 88 86 Pulse Rate [ From Monitor] Respiratory 12 16 12 Rate Blood Pressure 128/98 128/98 116/74 O2 Sat by Pulse 100 98 98 Oximetry 12/06/19 12/06/19 12/06/19 03:15 03:27 03:30 Temperature 98.9 F Pulse Rate 88 89 Pulse Rate [ From Monitor] Respiratory 14 17 Rate Blood Pressure 116/74 112/71 O2 Sat by Pulse 98 98 Oximetry 12/06/19 12/06/19 12/06/19 03:34 03:45 04:00 Temperature Pulse Rate 89 92 H 87 Pulse Rate [ 87 From Monitor] Respiratory 19 14 Rate Blood Pressure 112/71 112/71 112/72 O2 Sat by Pulse 98 98 98 Oximetry 12/06/19 12/06/19 12/06/19 04:15 04:30 04:45 Temperature Pulse Rate 91 H 87 85 Pulse Rate [ From Monitor] Respiratory 13 12 14 Rate Blood Pressure 112/72 111/74 111/74 O2 Sat by Pulse 98 99 100 Oximetry 12/06/19 12/06/19 12/06/19 05:00 05:15 05:30 Temperature Pulse Rate 84 84 84 Pulse Rate [ From Monitor] Respiratory 14 16 18 Rate Blood Pressure 107/73 107/73 109/70 O2 Sat by Pulse 100 99 99 Oximetry 12/06/19 12/06/19 12/06/19 05:38 05:45 06:00 Temperature Pulse Rate 87 82 78 Pulse Rate [ From Monitor] Respiratory 17 14 Rate Blood Pressure 109/70 109/70 105/65 O2 Sat by Pulse 100 99 Oximetry 12/06/19 12/06/19 12/06/19 06:15 06:30 06:45 Temperature Pulse Rate 81 81 80 Pulse Rate [ From Monitor] Respiratory 14 20 16 Rate Blood Pressure 105/65 107/70 107/70 O2 Sat by Pulse 99 99 99 Oximetry 12/06/19 12/06/19 12/06/19 07:00 07:15 07:30 Temperature Pulse Rate 81 81 79 Pulse Rate [ From Monitor] Respiratory 14 16 15 Rate Blood Pressure 106/68 106/68 108/68 O2 Sat by Pulse 99 99 98 Oximetry 12/06/19 12/06/19 12/06/19 07:45 08:00 08:15 Temperature 99.6 F Pulse Rate 87 81 85 Pulse Rate [ 87 From Monitor] Respiratory 16 16 14 Rate Blood Pressure 108/68 110/72 110/72 O2 Sat by Pulse 98 100 100 Oximetry 12/06/19 12/06/19 12/06/19 08:30 08:45 08:50 Temperature Pulse Rate 92 H 94 H 93 H Pulse Rate [ From Monitor] Respiratory 16 13 Rate Blood Pressure 119/70 119/70 105/69 O2 Sat by Pulse 100 99 98 Oximetry 12/06/19 12/06/19 12/06/19 09:00 09:15 09:30 Temperature Pulse Rate 94 H 93 H 100 H Pulse Rate [ From Monitor] Respiratory 15 16 18 Rate Blood Pressure 105/69 105/69 100/79 O2 Sat by Pulse 99 99 99 Oximetry 12/06/19 12/06/19 12/06/19 09:45 10:00 10:15 Temperature Pulse Rate 93 H 90 87 Pulse Rate [ From Monitor] Respiratory 15 16 17 Rate Blood Pressure 100/79 110/71 110/71 O2 Sat by Pulse 97 99 99 Oximetry 12/06/19 12/06/19 12/06/19 10:30 10:45 11:00 Temperature Pulse Rate 88 88 87 Pulse Rate [ From Monitor] Respiratory 12 13 18 Rate Blood Pressure 104/69 104/69 107/71 O2 Sat by Pulse 99 100 99 Oximetry 12/06/19 12/06/19 12/06/19 11:15 11:30 11:45 Temperature Pulse Rate 87 85 85 Pulse Rate [ From Monitor] Respiratory 15 14 19 Rate Blood Pressure 107/71 105/69 105/69 O2 Sat by Pulse 99 98 99 Oximetry 12/06/19 12:00 Temperature 99.3 F Pulse Rate 94 H Pulse Rate [ 87 From Monitor] Respiratory 13 Rate Blood Pressure 105/70 O2 Sat by Pulse 98 Oximetry Constitutional: no acute distress, agitated, other (elderly and obese male, normocephalic with mildly increased respiratory effort at rest on MVS) Eyes: non-icteric ENT: oropharynx moist, other (ETT 24 cm JASON) Neck: supple, no JVD Effort: very labored Ascultation: Bilateral: diminished breath sounds, rhonchi (improved RLL air entry also) Percussion: Bilateral: not dull Cardiovascular: regular rate and rhythm (tachycardia to the 140s) Gastrointestinal: normoactive bowel sounds, soft, non-tender, non-distended Integumentary: normal Extremities: no cyanosis, no edema, pulses normal, no ischemia or petechiae Neurologic: non-focal exam (moves all extremities with extreme agitation), pupils equal and round, motor strength normal and Psychiatric: mood appropriate, affect normal CBC and BMP: 12/06/19 05:24 12/06/19 05:24 ABG, PT/INR, D-dimer: ABG ABG pH 7.439 (7.320-7.450) 12/02/19 12:58 POC ABG pCO2 45.1 mmHg (32.0-48.0) 12/02/19 12:58 ABG pCO2 43.4 mm Hg 11/30/19 04:56 POC ABG pO2 78.1 mmHg (83-108) L 12/02/19 12:58 ABG pO2 56.3 mm Hg (80.0-90.0) L 11/30/19 04:56 POC ABG HCO3 29.9 12/02/19 12:58 ABG O2 Saturation 91.5 % (95.0-99.0) L 11/30/19 04:56 PT/INR, D-dimer PT 12.7 Sec. (12.2-14.9) 11/25/19 05:11 INR 0.94 (0.87-1.13) 11/25/19 05:11 Abnormal lab findings: Abnormal Labs 11/24/19 11/24/19 11/24/19 02:53 02:53 03:45 WBC 14.3 H Hgb Hct RDW 17.2 H Lymph % (Auto) Chase % (Auto) Chase # Eos # Seg Neutrophils % Seg Neutrophils # Seg Neutrophils # Man 8.3 H Monocytes # (Manual) 0.9 H ABG pH 7.313 L POC ABG pO2 ABG pO2 102.8 H ABG HCO3 ABG O2 Saturation ABG Base Excess -2.9 L ABG Hemoglobin ABG Oxyhemoglobin Oxyhemoglobin 93.9 L Sodium Potassium Chloride BUN Creatinine Glucose 195 H POC Glucose Lactic Acid Calcium Phosphorus AST ALT Lactate Dehydrogenase CK-MB (CK-2) 4.3 H C-Reactive Protein NT-Pro-B Natriuret Pep 1181 H Total Protein Albumin Urine WBC (Auto) 11/24/19 11/24/19 11/24/19 04:53 04:53 10:37 WBC Hgb Hct RDW Lymph % (Auto) Chase % (Auto) Chase # Eos # Seg Neutrophils % Seg Neutrophils # Seg Neutrophils # Man Monocytes # (Manual) ABG pH POC ABG pO2 ABG pO2 ABG HCO3 ABG O2 Saturation ABG Base Excess ABG Hemoglobin ABG Oxyhemoglobin Oxyhemoglobin Sodium Potassium Chloride BUN Creatinine Glucose 162 H POC Glucose Lactic Acid 2.40 H* 2.50 H* Calcium Phosphorus AST ALT Lactate Dehydrogenase 240 H CK-MB (CK-2) C-Reactive Protein NT-Pro-B Natriuret Pep Total Protein Albumin Urine WBC (Auto) 11/24/19 11/24/19 11/24/19 12:21 14:50 19:54 WBC Hgb Hct RDW Lymph % (Auto) Chase % (Auto) Chase # Eos # Seg Neutrophils % Seg Neutrophils # Seg Neutrophils # Man Monocytes # (Manual) ABG pH POC ABG pO2 ABG pO2 ABG HCO3 ABG O2 Saturation ABG Base Excess ABG Hemoglobin ABG Oxyhemoglobin Oxyhemoglobin Sodium Potassium Chloride BUN Creatinine Glucose POC Glucose 145 H 143 H 124 H Lactic Acid Calcium Phosphorus AST ALT Lactate Dehydrogenase CK-MB (CK-2) C-Reactive Protein NT-Pro-B Natriuret Pep Total Protein Albumin Urine WBC (Auto) 11/25/19 11/25/19 11/25/19 00:18 03:18 05:11 WBC 13.7 H Hgb Hct RDW 17.1 H Lymph % (Auto) 10.8 L Chase % (Auto) 8.7 H Chase # 1.2 H Eos # Seg Neutrophils % 80.2 H Seg Neutrophils # 11.0 H Seg Neutrophils # Man Monocytes # (Manual) ABG pH 7.333 L POC ABG pO2 ABG pO2 61.2 L ABG HCO3 ABG O2 Saturation 90.2 L ABG Base Excess ABG Hemoglobin 13.7 L ABG Oxyhemoglobin Oxyhemoglobin 88.2 L Sodium Potassium Chloride BUN Creatinine Glucose POC Glucose 109 H Lactic Acid Calcium Phosphorus AST ALT Lactate Dehydrogenase CK-MB (CK-2) C-Reactive Protein NT-Pro-B Natriuret Pep Total Protein Albumin Urine WBC (Auto) 11/25/19 11/25/19 11/26/19 05:11 11:40 03:12 WBC Hgb Hct RDW Lymph % (Auto) Chase % (Auto) Chase # Eos # Seg Neutrophils % Seg Neutrophils # Seg Neutrophils # Man Monocytes # (Manual) ABG pH POC ABG pO2 ABG pO2 155.1 H ABG HCO3 27.8 H ABG O2 Saturation ABG Base Excess ABG Hemoglobin 12.2 L ABG Oxyhemoglobin Oxyhemoglobin Sodium Potassium Chloride BUN 23 H Creatinine Glucose 110 H POC Glucose 108 H Lactic Acid Calcium Phosphorus AST ALT Lactate Dehydrogenase CK-MB (CK-2) C-Reactive Protein NT-Pro-B Natriuret Pep Total Protein Albumin Urine WBC (Auto) 11/26/19 11/26/19 11/26/19 06:17 10:43 10:43 WBC 11.4 H Hgb Hct RDW 17.1 H Lymph % (Auto) Chase % (Auto) Chase # Eos # Seg Neutrophils % Seg Neutrophils # Seg Neutrophils # Man Monocytes # (Manual) ABG pH POC ABG pO2 ABG pO2 ABG HCO3 ABG O2 Saturation ABG Base Excess ABG Hemoglobin ABG Oxyhemoglobin Oxyhemoglobin Sodium Potassium Chloride BUN 29 H Creatinine Glucose POC Glucose 107 H Lactic Acid Calcium Phosphorus AST ALT Lactate Dehydrogenase CK-MB (CK-2) C-Reactive Protein NT-Pro-B Natriuret Pep Total Protein Albumin Urine WBC (Auto) 11/26/19 11/27/19 11/27/19 17:11 01:53 04:11 WBC Hgb Hct RDW Lymph % (Auto) Chase % (Auto) Chase # Eos # Seg Neutrophils % Seg Neutrophils # Seg Neutrophils # Man Monocytes # (Manual) ABG pH POC ABG pO2 ABG pO2 ABG HCO3 29.2 H ABG O2 Saturation ABG Base Excess 3.4 H ABG Hemoglobin 13.3 L ABG Oxyhemoglobin Oxyhemoglobin 94.5 L Sodium Potassium Chloride BUN Creatinine Glucose POC Glucose 113 H 108 H Lactic Acid Calcium Phosphorus AST ALT Lactate Dehydrogenase CK-MB (CK-2) C-Reactive Protein NT-Pro-B Natriuret Pep Total Protein Albumin Urine WBC (Auto) 11/27/19 11/28/19 11/28/19 05:27 05:00 05:25 WBC Hgb Hct RDW Lymph % (Auto) Chase % (Auto) Chase # Eos # Seg Neutrophils % Seg Neutrophils # Seg Neutrophils # Man Monocytes # (Manual) ABG pH POC ABG pO2 68.1 L ABG pO2 ABG HCO3 ABG O2 Saturation ABG Base Excess ABG Hemoglobin ABG Oxyhemoglobin 91.2 L Oxyhemoglobin Sodium Potassium Chloride BUN Creatinine Glucose POC Glucose 111 H 110 H Lactic Acid Calcium Phosphorus AST ALT Lactate Dehydrogenase CK-MB (CK-2) C-Reactive Protein NT-Pro-B Natriuret Pep Total Protein Albumin Urine WBC (Auto) 11/28/19 11/28/19 11/28/19 12:08 13:47 13:47 WBC 11.3 H Hgb Hct RDW 16.1 H Lymph % (Auto) Chase % (Auto) 9.9 H Chase # 1.1 H Eos # Seg Neutrophils % 71.4 H Seg Neutrophils # 8.1 H Seg Neutrophils # Man Monocytes # (Manual) ABG pH POC ABG pO2 ABG pO2 ABG HCO3 ABG O2 Saturation ABG Base Excess ABG Hemoglobin ABG Oxyhemoglobin Oxyhemoglobin Sodium Potassium Chloride BUN 23 H Creatinine Glucose 123 H POC Glucose 112 H Lactic Acid Calcium Phosphorus AST ALT Lactate Dehydrogenase CK-MB (CK-2) C-Reactive Protein NT-Pro-B Natriuret Pep Total Protein Albumin 3.7 L Urine WBC (Auto) 11/28/19 11/29/19 11/29/19 17:26 03:55 17:04 WBC Hgb Hct RDW Lymph % (Auto) Chase % (Auto) Chase # Eos # Seg Neutrophils % Seg Neutrophils # Seg Neutrophils # Man Monocytes # (Manual) ABG pH POC ABG pO2 ABG pO2 65.7 L ABG HCO3 28.3 H ABG O2 Saturation 93.9 L ABG Base Excess 3.6 H ABG Hemoglobin 13.3 L ABG Oxyhemoglobin Oxyhemoglobin 91.5 L Sodium Potassium Chloride BUN Creatinine Glucose POC Glucose 123 H 119 H Lactic Acid Calcium Phosphorus AST ALT Lactate Dehydrogenase CK-MB (CK-2) C-Reactive Protein NT-Pro-B Natriuret Pep Total Protein Albumin Urine WBC (Auto) 11/30/19 11/30/19 11/30/19 04:17 04:17 04:56 WBC 13.4 H Hgb Hct RDW 15.6 H Lymph % (Auto) Chase % (Auto) Chase # Eos # Seg Neutrophils % Seg Neutrophils # Seg Neutrophils # Man Monocytes # (Manual) ABG pH POC ABG pO2 ABG pO2 56.3 L ABG HCO3 29.3 H ABG O2 Saturation 91.5 L ABG Base Excess 4.7 H ABG Hemoglobin 12.1 L ABG Oxyhemoglobin Oxyhemoglobin 89.2 L Sodium 147 H Potassium Chloride BUN 30 H Creatinine Glucose 124 H POC Glucose Lactic Acid Calcium Phosphorus AST ALT Lactate Dehydrogenase CK-MB (CK-2) C-Reactive Protein NT-Pro-B Natriuret Pep Total Protein Albumin 3.8 L Urine WBC (Auto) 11/30/19 11/30/19 11/30/19 05:51 11:54 18:17 WBC Hgb Hct RDW Lymph % (Auto) Chase % (Auto) Chase # Eos # Seg Neutrophils % Seg Neutrophils # Seg Neutrophils # Man Monocytes # (Manual) ABG pH POC ABG pO2 ABG pO2 ABG HCO3 ABG O2 Saturation ABG Base Excess ABG Hemoglobin ABG Oxyhemoglobin Oxyhemoglobin Sodium Potassium Chloride BUN Creatinine Glucose POC Glucose 127 H 115 H 143 H Lactic Acid Calcium Phosphorus AST ALT Lactate Dehydrogenase CK-MB (CK-2) C-Reactive Protein NT-Pro-B Natriuret Pep Total Protein Albumin Urine WBC (Auto) 12/01/19 12/01/19 12/01/19 01:18 05:22 12:16 WBC Hgb Hct RDW Lymph % (Auto) Chase % (Auto) Chase # Eos # Seg Neutrophils % Seg Neutrophils # Seg Neutrophils # Man Monocytes # (Manual) ABG pH POC ABG pO2 ABG pO2 ABG HCO3 ABG O2 Saturation ABG Base Excess ABG Hemoglobin ABG Oxyhemoglobin Oxyhemoglobin Sodium Potassium 3.5 L Chloride 107.8 H BUN 37 H Creatinine Glucose 157 H POC Glucose 118 H 148 H Lactic Acid Calcium 8.2 L D Phosphorus AST 48 H ALT 60 H Lactate Dehydrogenase 194 H CK-MB (CK-2) C-Reactive Protein 8.50 H NT-Pro-B Natriuret Pep Total Protein 5.5 L Albumin 2.8 L Urine WBC (Auto) 12/01/19 12/02/19 12/02/19 18:04 00:05 05:16 WBC 11.4 H Hgb Hct RDW 15.9 H Lymph % (Auto) Chase % (Auto) 9.9 H Chase # 1.1 H Eos # Seg Neutrophils % 70.3 H Seg Neutrophils # 8.0 H Seg Neutrophils # Man Monocytes # (Manual) ABG pH POC ABG pO2 ABG pO2 ABG HCO3 ABG O2 Saturation ABG Base Excess ABG Hemoglobin ABG Oxyhemoglobin Oxyhemoglobin Sodium Potassium Chloride BUN Creatinine Glucose POC Glucose 143 H 107 H Lactic Acid Calcium Phosphorus AST ALT Lactate Dehydrogenase CK-MB (CK-2) C-Reactive Protein NT-Pro-B Natriuret Pep Total Protein Albumin Urine WBC (Auto) 12/02/19 12/02/19 12/02/19 05:16 06:03 11:52 WBC Hgb Hct RDW Lymph % (Auto) Chase % (Auto) Chase # Eos # Seg Neutrophils % Seg Neutrophils # Seg Neutrophils # Man Monocytes # (Manual) ABG pH POC ABG pO2 ABG pO2 ABG HCO3 ABG O2 Saturation ABG Base Excess ABG Hemoglobin ABG Oxyhemoglobin Oxyhemoglobin Sodium 146 H Potassium Chloride BUN 28 H Creatinine Glucose 123 H POC Glucose 110 H 152 H Lactic Acid Calcium Phosphorus AST ALT Lactate Dehydrogenase CK-MB (CK-2) C-Reactive Protein NT-Pro-B Natriuret Pep Total Protein Albumin Urine WBC (Auto) 12/02/19 12/02/19 12/02/19 12:58 17:58 23:36 WBC Hgb Hct RDW Lymph % (Auto) Chase % (Auto) Chase # Eos # Seg Neutrophils % Seg Neutrophils # Seg Neutrophils # Man Monocytes # (Manual) ABG pH POC ABG pO2 78.1 L ABG pO2 ABG HCO3 ABG O2 Saturation ABG Base Excess ABG Hemoglobin ABG Oxyhemoglobin Oxyhemoglobin Sodium Potassium Chloride BUN Creatinine Glucose POC Glucose 120 H 123 H Lactic Acid Calcium Phosphorus AST ALT Lactate Dehydrogenase CK-MB (CK-2) C-Reactive Protein NT-Pro-B Natriuret Pep Total Protein Albumin Urine WBC (Auto) 12/03/19 12/03/19 12/03/19 06:03 06:14 11:46 WBC Hgb Hct RDW Lymph % (Auto) Chase % (Auto) Chase # Eos # Seg Neutrophils % Seg Neutrophils # Seg Neutrophils # Man Monocytes # (Manual) ABG pH POC ABG pO2 ABG pO2 ABG HCO3 ABG O2 Saturation ABG Base Excess ABG Hemoglobin ABG Oxyhemoglobin Oxyhemoglobin Sodium Potassium Chloride BUN Creatinine Glucose POC Glucose 142 H 130 H Lactic Acid Calcium Phosphorus AST ALT Lactate Dehydrogenase CK-MB (CK-2) C-Reactive Protein NT-Pro-B Natriuret Pep Total Protein Albumin Urine WBC (Auto) 8.0 H 12/03/19 12/03/19 12/04/19 15:50 17:39 00:04 WBC Hgb Hct RDW Lymph % (Auto) Chase % (Auto) Chase # Eos # Seg Neutrophils % Seg Neutrophils # Seg Neutrophils # Man Monocytes # (Manual) ABG pH POC ABG pO2 ABG pO2 ABG HCO3 ABG O2 Saturation ABG Base Excess ABG Hemoglobin ABG Oxyhemoglobin Oxyhemoglobin Sodium Potassium Chloride BUN Creatinine Glucose POC Glucose 146 H 133 H Lactic Acid Calcium Phosphorus 2.40 L AST ALT Lactate Dehydrogenase CK-MB (CK-2) C-Reactive Protein NT-Pro-B Natriuret Pep Total Protein Albumin Urine WBC (Auto) 12/04/19 12/04/19 12/04/19 03:58 03:58 05:22 WBC 12.5 H Hgb 11.2 L Hct 35.2 L RDW 16.0 H Lymph % (Auto) Chase % (Auto) 9.6 H Chase # 1.2 H Eos # 0.5 H Seg Neutrophils % Seg Neutrophils # 8.6 H Seg Neutrophils # Man Monocytes # (Manual) ABG pH POC ABG pO2 ABG pO2 ABG HCO3 ABG O2 Saturation ABG Base Excess ABG Hemoglobin ABG Oxyhemoglobin Oxyhemoglobin Sodium 146 H Potassium Chloride 108.6 H BUN 30 H Creatinine 0.7 L Glucose 121 H POC Glucose 132 H Lactic Acid Calcium Phosphorus AST ALT Lactate Dehydrogenase CK-MB (CK-2) C-Reactive Protein NT-Pro-B Natriuret Pep Total Protein Albumin Urine WBC (Auto) 12/04/19 12/04/19 12/05/19 13:26 18:43 00:19 WBC Hgb Hct RDW Lymph % (Auto) Chase % (Auto) Chase # Eos # Seg Neutrophils % Seg Neutrophils # Seg Neutrophils # Man Monocytes # (Manual) ABG pH POC ABG pO2 ABG pO2 ABG HCO3 ABG O2 Saturation ABG Base Excess ABG Hemoglobin ABG Oxyhemoglobin Oxyhemoglobin Sodium Potassium Chloride BUN Creatinine Glucose POC Glucose 185 H 156 H 150 H Lactic Acid Calcium Phosphorus AST ALT Lactate Dehydrogenase CK-MB (CK-2) C-Reactive Protein NT-Pro-B Natriuret Pep Total Protein Albumin Urine WBC (Auto) 12/05/19 12/05/19 12/05/19 03:37 03:37 05:14 WBC 16.3 H Hgb 11.4 L Hct RDW 15.6 H Lymph % (Auto) 9.9 L Chase % (Auto) 9.7 H Chase # 1.6 H Eos # Seg Neutrophils % 78.0 H Seg Neutrophils # 12.7 H Seg Neutrophils # Man Monocytes # (Manual) ABG pH POC ABG pO2 ABG pO2 ABG HCO3 ABG O2 Saturation ABG Base Excess ABG Hemoglobin ABG Oxyhemoglobin Oxyhemoglobin Sodium 146 H Potassium Chloride 107.2 H BUN 27 H Creatinine 0.7 L Glucose 171 H POC Glucose 168 H Lactic Acid Calcium Phosphorus AST ALT Lactate Dehydrogenase CK-MB (CK-2) C-Reactive Protein NT-Pro-B Natriuret Pep Total Protein Albumin Urine WBC (Auto) 12/05/19 12/05/19 12/05/19 12:31 18:10 23:58 WBC Hgb Hct RDW Lymph % (Auto) Chase % (Auto) Chase # Eos # Seg Neutrophils % Seg Neutrophils # Seg Neutrophils # Man Monocytes # (Manual) ABG pH POC ABG pO2 ABG pO2 ABG HCO3 ABG O2 Saturation ABG Base Excess ABG Hemoglobin ABG Oxyhemoglobin Oxyhemoglobin Sodium Potassium Chloride BUN Creatinine Glucose POC Glucose 159 H 198 H 115 H Lactic Acid Calcium Phosphorus AST ALT Lactate Dehydrogenase CK-MB (CK-2) C-Reactive Protein NT-Pro-B Natriuret Pep Total Protein Albumin Urine WBC (Auto) 12/06/19 12/06/19 12/06/19 05:24 05:24 05:25 WBC 14.9 H Hgb 10.8 L Hct 34.0 L RDW 15.6 H Lymph % (Auto) 10.7 L Chase % (Auto) 8.3 H Chase # 1.2 H Eos # Seg Neutrophils % 78.7 H Seg Neutrophils # 11.7 H Seg Neutrophils # Man Monocytes # (Manual) ABG pH POC ABG pO2 ABG pO2 ABG HCO3 ABG O2 Saturation ABG Base Excess ABG Hemoglobin ABG Oxyhemoglobin Oxyhemoglobin Sodium 148 H Potassium 5.1 H Chloride 107.6 H BUN 27 H Creatinine 0.7 L Glucose 155 H POC Glucose 157 H Lactic Acid Calcium Phosphorus AST ALT Lactate Dehydrogenase CK-MB (CK-2) C-Reactive Protein NT-Pro-B Natriuret Pep Total Protein Albumin Urine WBC (Auto) Chest x-ray: other (nopne today) Allied health notes reviewed: nursing
--- NOTE | 2019-12-06 13:45 | Progress Note ---
Assessment and Plan Cultures: Blood culture 12/02/2019 negative Blood culture 11/24/2019 negative Urine culture 11/24/2019 negative COVID-19 negative x2 12/04/2019 resp culture: PsA A/P: 64-year-old male past medical history hypertension, COPD, CAD, CHF with reduced ejection fraction admitted with acute hypoxic respiratory failure likely secondary to pneumonia #Acute hypoxemic respiratory failure: Likely secondary to pneumonia, COVID-19 testing negative x 2. Currently intubated. #Bilateral pneumonia: COVID-19 negative twice. Procalcitonin elevated, and new fevers. Culture growing Pseudomonas. #CHF #COPD Recs: -Febrile again, will get blood cultures, add IV Vancomycin -Pseudomonas susceptible to Cefepime, so will switch Meropenem D2 back to Cefepime -COVID negative x 2, d/c respiratory isolation Dr. Dominique taking over tomorrow. Chet Saha MD, FACP [facility] ([facility] C: [phone] O: [phone] F: [phone] Subjective Date of service: 12/06/19 Principal diagnosis: Ac hypoxemic resp failure; Pneumonia; PUI COVID-19; CHF; COPD; HTN Interval history: Febrile again last night up to 102F. Remains intubated, sedated on the vent. Objective - Exam Narrative Exam: Physical Exam: Constitutional: opens eyes, intubated, on the vent Head, Ears, Nose: Normocephalic, atraumatic. External ears, nose normal Eyes: Conjunctivae/corneas clear. No icterus. No ptosis. Neck: intubated Oral: intubated Cardiovascular: S1, S2 + Respiratory: AE fair bilaterally and equal GI: Soft, bowel sounds + Musculoskeletal: No pedal edema, no cyanosis. Skin: No rash or abscess Hem/Lymphatic: No palpable cervical or supraclavicular nodes. No lymphangitis Psych: no agitation Neurological: opens eyes, intubated, on the vent, exam limited - Constitutional Vitals: Vital Signs Temp Pulse Resp BP Pulse Ox 99.3 F 87 13 105/70 98 12/06/19 12:00 12/06/19 12:00 12/06/19 12:00 12/06/19 12:00 12/06/19 12:00 Temperature -Last 24 Hours Temperature 99.3 F Temperature 99.6 F Temperature 98.9 F Temperature 99.4 F Temperature 99.7 F Temperature 102.3 F Temperature 101.6 F - Labs CBC & Chem 7: 12/06/19 05:24 12/06/19 05:24 Labs: Abnormal lab results 12/05/19 12/05/19 12/05/19 Range/Units 12:31 18:10 23:58 WBC (4.5-11.0) K/mm3 Hgb (11.8-15.2) gm/dl Hct (35.5-45.6) % RDW (13.2-15.2) % Lymph % (Auto) (13.4-35.0) % [place] % (Auto) (0.0-7.3) % [place] # (0.0-0.8) K/mm3 Seg Neutrophils % (40.0-70.0) % Seg Neutrophils # (1.8-7.7) K/mm3 Sodium (137-145) mmol/L Potassium (3.6-5.0) mmol/L Chloride (98-107) mmol/L BUN (9-20) mg/dL Creatinine (0.8-1.3) mg/dL Glucose (75-100) mg/dL POC Glucose 159 H 198 H 115 H (70-105) 12/06/19 12/06/19 12/06/19 Range/Units 05:24 05:24 05:25 WBC 14.9 H (4.5-11.0) K/mm3 Hgb 10.8 L (11.8-15.2) gm/dl Hct 34.0 L (35.5-45.6) % RDW 15.6 H (13.2-15.2) % Lymph % (Auto) 10.7 L (13.4-35.0) % [place] % (Auto) 8.3 H (0.0-7.3) % [place] # 1.2 H (0.0-0.8) K/mm3 Seg Neutrophils % 78.7 H (40.0-70.0) % Seg Neutrophils # 11.7 H (1.8-7.7) K/mm3 Sodium 148 H (137-145) mmol/L Potassium 5.1 H (3.6-5.0) mmol/L Chloride 107.6 H (98-107) mmol/L BUN 27 H (9-20) mg/dL Creatinine 0.7 L (0.8-1.3) mg/dL Glucose 155 H (75-100) mg/dL POC Glucose 157 H (70-105)
[2019-12-06] MEDS ORDERED: VANCOMYCIN 2,000 MG in DEXTROSE 5% IN WATER 500 ML IV ONE (13:47)
--- NOTE | 2019-12-06 13:52 | XRay Report ---
ABDOMEN 1 VIEW INDICATION / CLINICAL INFORMATION: constipation; pain. COMPARISON: 11/29/2019 FINDINGS: TUBES / LINES: Stable satisfactory device positioning. BOWEL GAS PATTERN: Nonobstructive gas pattern. Stool throughout the colon suggesting constipation. FREE AIR / EXTRALUMINAL GAS: None seen. ADDITIONAL FINDINGS: No significant additional findings. IMPRESSION: 1. No acute findings, as above. Signer Name: Chaz Ramos MD Signed: 12/06/2019 1:48 PM Workstation Name: [id number]
[2019-12-06] MEDS ORDERED: VANCOMYCIN PHARMACY TO DOSE IV SCH (14:00)
[2019-12-06] MEDS ORDERED: MAGNESIUM CITRATE 300 ML ORAL LIQD PO ONE (14:02)
[2019-12-06] MEDS: CEFEPIME/NS 2 GM/100 ML 2 GM/100 ML BAG IV SCH ×2 (14:30→22:17)
--- NOTE | 2019-12-06 15:15 | Progress Note ---
Assessment and Plan - Patient Problems (1) Acute respiratory failure Current Visit: Yes Status: Acute (2) Bilateral pneumonia Current Visit: Yes Status: Acute (3) COPD exacerbation Current Visit: No Status: Acute (4) Hypertension Current Visit: No Status: Acute Qualifiers: Hypertension type: essential hypertension Qualified Code(s): I10 - Essential (primary) hypertension Subjective Date of service: 12/06/19 Principal diagnosis: Ac hypoxemic resp failure; Pneumonia; PUI COVID-19; CHF; COPD; HTN Interval history: PT ON VENT' Objective Vital Signs Temp Pulse Pulse Resp BP Pulse Ox 12/06/19 15:00 86 14 128/80 100 12/06/19 14:45 87 17 127/87 99 12/06/19 14:30 90 17 127/87 98 12/06/19 14:15 87 18 119/75 98 12/06/19 14:00 88 20 119/75 99 12/06/19 13:45 89 16 100/66 98 12/06/19 13:31 91 H 12 120/78 98 12/06/19 13:15 83 13 100/66 100 12/06/19 13:00 81 14 100/66 99 12/06/19 12:45 80 26 H 107/69 98 12/06/19 12:30 82 17 107/69 99 12/06/19 12:15 84 17 105/70 100 12/06/19 12:00 99.3 F 82 87 16 107/69 98 12/06/19 11:45 85 19 105/69 99 12/06/19 11:30 85 14 105/69 98 12/06/19 11:15 87 15 107/71 99 12/06/19 11:00 87 18 107/71 99 12/06/19 10:45 88 13 104/69 100 12/06/19 10:30 88 12 104/69 99 12/06/19 10:15 87 17 110/71 99 12/06/19 10:00 90 16 110/71 99 12/06/19 09:45 93 H 15 100/79 97 12/06/19 09:30 100 H 18 100/79 99 12/06/19 09:15 93 H 16 105/69 99 12/06/19 09:00 94 H 15 105/69 99 12/06/19 08:50 93 H 105/69 98 12/06/19 08:45 94 H 13 119/70 99 12/06/19 08:30 92 H 16 119/70 100 12/06/19 08:15 85 14 110/72 100 12/06/19 08:00 99.6 F 81 87 16 110/72 100 12/06/19 07:45 87 16 108/68 98 12/06/19 07:30 79 15 108/68 98 12/06/19 07:15 81 16 106/68 99 12/06/19 07:00 81 14 106/68 99 12/06/19 06:45 80 16 107/70 99 12/06/19 06:30 81 20 107/70 99 12/06/19 06:15 81 14 105/65 99 12/06/19 06:00 78 14 105/65 99 12/06/19 05:45 82 17 109/70 100 12/06/19 05:38 87 109/70 12/06/19 05:30 84 18 109/70 99 12/06/19 05:15 84 16 107/73 99 12/06/19 05:00 84 14 107/73 100 12/06/19 04:45 85 14 111/74 100 12/06/19 04:30 87 12 111/74 99 12/06/19 04:15 91 H 13 112/72 98 12/06/19 04:00 87 87 14 112/72 98 12/06/19 03:45 92 H 19 112/71 98 12/06/19 03:34 89 112/71 98 12/06/19 03:30 89 17 112/71 98 12/06/19 03:27 98.9 F 12/06/19 03:15 88 14 116/74 98 12/06/19 03:00 86 12 116/74 98 12/06/19 02:45 88 16 128/98 98 12/06/19 02:31 98 H 12 128/98 100 12/06/19 02:15 77 14 109/67 99 12/06/19 02:00 77 21 109/67 99 12/06/19 01:45 76 11 L 104/66 100 12/06/19 01:30 76 15 104/66 99 12/06/19 01:15 77 17 102/65 99 12/06/19 01:00 77 17 102/65 100 12/06/19 00:45 83 15 112/70 99 12/06/19 00:30 83 17 112/70 99 12/06/19 00:16 81 13 112/70 99 12/06/19 00:00 81 77 16 112/70 99 12/05/19 23:46 82 15 106/67 99 12/05/19 23:32 84 16 106/67 100 12/05/19 23:30 81 15 106/67 98 12/05/19 23:25 99.4 F 12/05/19 23:16 84 17 108/67 99 12/05/19 23:00 81 16 108/67 99 12/05/19 22:46 82 16 109/67 99 12/05/19 22:42 83 109/67 98 12/05/19 22:30 84 18 109/67 98 12/05/19 22:16 84 17 108/69 99 12/05/19 22:00 81 14 108/69 99 12/05/19 21:46 84 12 108/69 99 12/05/19 21:30 83 14 108/69 98 12/05/19 21:16 84 13 105/68 98 12/05/19 21:00 87 16 105/68 99 12/05/19 20:46 88 12 111/71 98 12/05/19 20:30 89 10 L 111/71 98 12/05/19 20:16 95 H 12 124/74 98 12/05/19 20:00 100 H 90 13 119/70 98 12/05/19 19:54 99.7 F H 12/05/19 19:46 96 H 14 119/70 98 12/05/19 19:30 93 H 13 119/70 96 12/05/19 19:16 94 H 14 112/66 99 12/05/19 19:15 102.3 F H 12/05/19 19:09 91 H 112/66 98 12/05/19 19:00 93 H 12 112/66 97 12/05/19 18:46 91 H 11 L 133/74 98 12/05/19 18:30 98 H 15 133/74 95 12/05/19 18:16 94 H 11 L 129/80 97 12/05/19 18:00 95 H 14 129/80 97 12/05/19 17:46 96 H 11 L 156/92 97 12/05/19 17:30 115 H 18 156/92 93 12/05/19 17:28 132 H 132/81 12/05/19 17:16 101 H 12 132/81 98 12/05/19 17:00 91 H 12 132/81 97 12/05/19 16:46 92 H 12 131/79 97 12/05/19 16:36 14 12/05/19 16:30 92 H 15 136/83 12/05/19 16:16 96 H 15 131/79 98 12/05/19 16:08 88 131/79 98 12/05/19 16:00 101.6 F H 88 88 14 131/79 98 12/05/19 15:46 90 13 133/80 97 12/05/19 15:30 91 H 15 133/80 97 12/05/19 15:16 91 H 13 128/82 98 - Physical Examination General: Other (intubated on the vent) HEENT: Positive: PERRL Neck: Positive: neck supple Cardiac: Positive: Reg Rate and Rhythm Lungs: Positive: Decreased Breath Sounds Neuro: Positive: Other (Intubated and sedated, on the vent) Abdomen: Positive: Soft Skin: Positive: Clear Extremities: Absent: edema - Labs and Meds CBC 12/06/19 Range/Units 05:24 WBC 14.9 H (4.5-11.0) K/mm3 RBC 3.66 (3.65-5.03) M/mm3 Hgb 10.8 L (11.8-15.2) gm/dl Hct 34.0 L (35.5-45.6) % Plt Count 224 (140-440) K/mm3 Lymph # 1.6 (1.2-5.4) K/mm3 [place] # 1.2 H (0.0-0.8) K/mm3 Eos # 0.2 (0.0-0.4) K/mm3 Baso # 0.1 (0.0-0.1) K/mm3 Comprehensive Metabolic Panel 12/06/19 Range/Units 05:24 Sodium 148 H (137-145) mmol/L Potassium 5.1 H (3.6-5.0) mmol/L Chloride 107.6 H (98-107) mmol/L Carbon Dioxide 30 (22-30) mmol/L BUN 27 H (9-20) mg/dL Creatinine 0.7 L (0.8-1.3) mg/dL Glucose 155 H (75-100) mg/dL Calcium 10.0 (8.4-10.2) mg/dL - Allied health notes Allied health notes reviewed: nursing
[2019-12-06] MEDS: QUEtiapine 100 MG TAB PO SCH (22:19)
[2019-12-06] MEDS: POLYETHYLENE GLYCOL 3350 17 GM POWDER PO SCH (22:19)
[2019-12-06] MEDS: ACETAMINOPHEN 325 MG/10.15 ML ORAL LIQD UNIT DOSE FEEDTUBE PRN (22:19)
[2019-12-06] MEDS: LORazepam 2 MG/ML VIAL IV PRN (23:03)
[2019-12-07] MEDS: METOPROLOL TARTRATE 5 MG/5 ML INJ IV SCH ×2 (01:04→05:43)
[2019-12-07] MEDS: fentaNYL DRIP Premix 2,000 MCG/100 ML BAG IV SCH ×2 (01:19→16:42)
[2019-12-07] MEDS: INSULIN LISPRO 100 UNIT/ML VIAL 3 mL SUB-Q SCH ×4 (01:34→18:19)
[2019-12-07] MEDS: VANCOMYCIN 1,500 MG in SODIUM CHLORIDE 0.9% 500 ML 500 ML IV SCH ×2 (03:54→16:13)
--- NOTE | 2019-12-07 03:55 | XRay Report ---
CHEST 1 VIEW INDICATION: RLL atelectasis. COMPARISON: 12/05/2019. FINDINGS: Support devices: Unchanged. Heart: Stable cardiomegaly. Lungs/Pleura: Persistent opacity right base with mild decreased aeration. Improving aeration at the r ight mid/upper zone and left chest. Additional findings: None. IMPRESSION: Overall mild improvement. Signer Name: Heriberto Johnson MD Signed: 12/07/2019 3:51 AM Workstation Name: [id number]
[2019-12-07] MEDS: HEPARIN 5,000 UNIT/1 ML VIAL SUB-Q SCH (05:42)
[2019-12-07] MEDS: CEFEPIME/NS 2 GM/100 ML 2 GM/100 ML BAG IV SCH ×3 (05:44→21:50)
--- NOTE | 2019-12-07 07:51 | Progress Note ---
Assessment and Plan Cultures: Blood culture 12/02/2019 negative Blood culture 11/24/2019 negative Urine culture 11/24/2019 negative COVID-19 negative x2 12/04/2019 resp culture: PsA 12/06/2019 blood cultures: Pending A/P: 64-year-old male past medical history hypertension, COPD, CAD, CHF with reduced ejection fraction admitted with acute hypoxic respiratory failure likely secondary to pneumonia #Sepsis: With persistent fever, unclear etiology possible due to pneumonia. Procalcitonin slightly increasing. #Acute hypoxemic respiratory failure: Likely secondary to pneumonia, COVID-19 testing negative x 2. Remains intubated, FiO2 40%, PEEP of 8. #Bilateral pneumonia: COVID-19 negative twice. Procalcitonin elevated, and new fevers. Culture growing Pseudomonas, pansensitive. Repeat chest x-ray with persistent right base opacity. #CHF #COPD Recs: -Follow-up repeat blood cultures -Continue cefepime IV for now -Continue vancomycin with PK consult -Obtain MRSA PCR -Repeat procalcitonin -Remove Hoffman as possible -Consider chest CT if fever continues due to non-resolving pneumonia Patsy Dominique MD [facility] ([facility]) Office [phone] Subjective Date of service: 12/07/19 Principal diagnosis: Ac hypoxemic resp failure; Pneumonia; PUI COVID-19; CHF; COPD; HTN Interval history: Remains intubated, sedated, fever 102 overnight. Objective - Exam Narrative Exam: Physical Exam: Constitutional: Sedated intubated Head, Ears, Nose: Normocephalic, atraumatic. External ears, nose normal Oral: ETT in place, OG tube in place Eyes: Conjunctivae/corneas clear. No icterus. No ptosis. Neck: Supple, no meningeal signs Cardiovascular: RRR Respiratory: diminished GI: Soft, non-tender; bowel sounds normal. No peritoneal signs Musculoskeletal: no edema, deformities Skin: No rash or abscess Hem/Lymphatic: No palpable cervical or supraclavicular nodes. No lymphangitis Psych: Sedated Neurological: Sedated - Constitutional Vitals: Vital Signs Temp Pulse Resp BP Pulse Ox 99 F 76 15 100/67 99 12/07/19 03:33 12/07/19 07:33 12/07/19 06:15 12/07/19 07:33 12/07/19 07:33 Temperature -Last 24 Hours Temperature 99 F Temperature 101.1 F Temperature 102.2 F Temperature 99.5 F Temperature 99.3 F Temperature 99.6 F - Labs CBC & Chem 7: 12/06/19 05:24 12/06/19 05:24 Labs: Abnormal lab results 12/07/19 12/07/19 Range/Units 00:13 05:34 POC Glucose 142 H 111 H (70-105)
--- NOTE | 2019-12-07 08:06 | Progress Note ---
Assessment and Plan Assessment and plan: COVID-19 test; 11/24/2019; negative 11/26/2019; negative -Persistent fevers; secondary to sepsis -Severe sepsis; secondary to bilateral pneumonia, persistent fevers -Acute hypoxemic respiratory failure, on vent unable to wean -Bilateral pneumonia, community acquired, -Aspiration Pneumonia -Sustained SVT, on amiodarone -Acute on chronic systolic congestive heart failure -History of cerebrovascular accident. -Tobacco use disorder -Alcohol abuse with DT -Acute chronic obstructive pulmonary disease exacerbation. -Hypertension and hypertensive urgency at presentation. -History of arthritis. -Leukocytosis with possible sepsis. -Lactic acidosis. -Oropharyngeal dysphagia -S/P Knee surgery -History of peptic Ulcer Surgery -DVT prophylaxis Plan Continue ventilatory support, Wean as tolerated and extubate., Pulmonary critical care following Completed ceftriaxone and azithromycin for total 5 days per ID ID started cefepime and Vanco Continue anti-failure medications, cardiology following cont Steroids, Continue diuresis Aspiration precautions DVT/GI prophy Heparin/Protonix Plan of care reviewed with the patient's nurse Closely monitor the patient and adjust management as needed The high probability of a clinically significant, sudden or life threatening deterioration of the [Respiratory, cardiovascular & neurological] system(s) required my full and direct attention, intervention and personal management. The aggregate critical care time was [33] minutes without overlap. Time includes spent on [x] Data Review and interpretation [x] Patient assessment and monitoring of vital signs [x] Documentation [x] Medication orders and management 11/25: Leukocytosis improving. Continue current management anticipate extubation possible today. 11/26. Still intubated. Failed SBT yesterday. Repeat COVID-19 test is negative. 11/27. CT head ordered for possible neuro status change is negative. More respo nsive as the day progressed as per RN. Chest xray today shows interval improvement. He is still on antibiotics - will complete regimen today. 11/28: Considering difficult extubation and severe cardiomyopathy, will obtain cardiology consult. Aspiration precautions, tube feeds held, continue antibiotic s. 11/29: Still with intermittent fever but improving imaging, continue diuresis. 11/30; Extremely agitated when placed on PSV- SVT, hypertension. Patiet acknowledged that he drinks. IV Ativan given, CIWA protocol initiated. 12 lead ordered showed SVT, one dose of amiodarone ordered. continue to follow up cardiology recommendation 12/01: Patient remains on mechanical ventilation, getting SBT trial. Remains in SVT, started on amiodarone drip by cardiology. 12/02; patient is on mechanical ventilation and on spontaneous breathing trial. Cardiology started the patient on PO amiodarone. Patient is on cefepime. 12/03: patient is on mechanical ventilation. Cardiology started the patient on PO amiodarone for SVT. Patient is on cefepime, no fever overnight. 12/04: Patient is sedated and on mechanical ventilation. Patient had fever yesterday afternoon 102.3, ID changed his cefepime to meropenem. Heart rate is controlled, cardiology is following. Patient has paroxysmal atrial fibrillation and on amiodarone and metoprolol, subcu heparin for anticoagulation and will need oral anticoagulation once stable. 12/05: Sputum cultures positive for Pseudomonas, ID following 12/06; patient is febrile T-max 24 hours 102 F ,ID change antibiotics to cefepime and Vancomycin Brief history 64-year-old male patient with known history of hypertension, COPD, history of coronary artery disease, CHF with ejection fraction of 20 to 25% in August 2018 was admitted through emergency room with presenting history of of shortness of breath. Patient was found to be hypoxic and in respiratory distress. Patient was placed on CPAP in route to the hospital. Oxygen saturation was said to be 88%. Started on Solu-Medrol, Lasix and magnesium in ED, patient was also found to be lethargic with an oxygen saturation of about 91% on CPAP. He was subsequently intubated. Work-up in the emergency room including chest x-ray reveals bilateral pneumonia. He had leukocytosis and an elevated BNP. Patient's co-test x2, receiving antibiotics for pneumonia, kamar intubated on ventilatory support, sputum cultures positive for Pseudomonas, ID changed antibiotics to cefepime and Vanco. History Interval history: I have seen and examined the patient at the bedside in ICU this morning Patient's chart current medications, tests and reports reviewed No new overnight events reported by the nursing Remains intubated on ventilator support Febrile, T-max last 24 hours 102.2 F Vital signs noted Hospitalist Physical - Constitutional Vitals: Temp Pulse Resp BP Pulse Ox 98.2 F 76 15 100/67 99 12/07/19 07:54 12/07/19 07:33 12/07/19 06:15 12/07/19 07:33 12/07/19 07:33 General appearance: Present: no acute distress, well-nourished, other (Inntubated on vent, febrile) - EENT Eyes: Present: PERRL, EOM intact ENT: other (ET tube and Dobbhoff in place) - Neck Neck: Present: supple, normal ROM - Respiratory Respiratory effort: normal Respiratory: bilateral: diminished, rhonchi, negative: rales, wheezing - Cardiovascular Rhythm: regular Heart Sounds: Present: S1 & S2 - Extremities Extremities: no ischemia, No edema - Abdominal General gastrointestinal: soft, non-tender, non-distended, normal bowel sounds - Integumentary Integumentary: Present: clear, warm - Psychiatric Psychiatric: other (Intubated on vent) - Neurologic Neurologic: other (Intubated on vent) HEART Score - HEART Score Troponin: Troponin T < 0.010 ng/mL (0.00-0.029) 11/24/19 02:53 Results - Labs CBC & Chem 7: 12/07/19 13:25 12/07/19 12:41 Labs: Laboratory Last Values WBC 14.9 K/mm3 (4.5-11.0) H 12/06/19 05:24 RBC 3.66 M/mm3 (3.65-5.03) 12/06/19 05:24 Hgb 10.8 gm/dl (11.8-15.2) L 12/06/19 05:24 Hct 34.0 % (35.5-45.6) L 12/06/19 05:24 MCV 93 fl (84-94) 12/06/19 05:24 MCH 30 pg (28-32) 12/06/19 05:24 MCHC 32 % (32-34) 12/06/19 05:24 RDW 15.6 % (13.2-15.2) H 12/06/19 05:24 Plt Count 224 K/mm3 (140-440) 12/06/19 05:24 Lymph % (Auto) 10.7 % (13.4-35.0) L 12/06/19 05:24 [place] % (Auto) 8.3 % (0.0-7.3) H 12/06/19 05:24 Eos % (Auto) 1.5 % (0.0-4.3) 12/06/19 05:24 Baso % (Auto) 0.8 % (0.0-1.8) 12/06/19 05:24 Lymph # 1.6 K/mm3 (1.2-5.4) 12/06/19 05:24 [place] # 1.2 K/mm3 (0.0-0.8) H 12/06/19 05:24 Eos # 0.2 K/mm3 (0.0-0.4) 12/06/19 05:24 Baso # 0.1 K/mm3 (0.0-0.1) 12/06/19 05:24 Add Manual Diff Complete 11/24/19 02:53 Total Counted 100 11/24/19 02:53 Seg Neutrophils % 78.7 % (40.0-70.0) H 12/06/19 05:24 Seg Neuts % (Manual) 58.0 % (40.0-70.0) 11/24/19 02:53 Band Neutrophils % 0 % 11/24/19 02:53 Lymphocytes % (Manual) 33.0 % (13.4-35.0) 11/24/19 02:53 Reactive Lymphs % (Man) 0 % 11/24/19 02:53 Monocytes % (Manual) 6.0 % (0.0-7.3) 11/24/19 02:53 Eosinophils % (Manual) 3.0 % (0.0-4.3) 11/24/19 02:53 Basophils % (Manual) 0 % (0.0-1.8) 11/24/19 02:53 Metamyelocytes % 0 % 11/24/19 02:53 Myelocytes % 0 % 11/24/19 02:53 Promyelocytes % 0 % 11/24/19 02:53 Blast Cells % 0 % 11/24/19 02:53 Nucleated RBC % Not Reportable 11/24/19 02:53 Seg Neutrophils # 11.7 K/mm3 (1.8-7.7) H 12/06/19 05:24 Seg Neutrophils # Man 8.3 K/mm3 (1.8-7.7) H 11/24/19 02:53 Band Neutrophils # 0.0 K/mm3 11/24/19 02:53 Lymphocytes # (Manual) 4.7 K/mm3 (1.2-5.4) 11/24/19 02:53 Abs React Lymphs (Man) 0.0 K/mm3 11/24/19 02:53 Monocytes # (Manual) 0.9 K/mm3 (0.0-0.8) H 11/24/19 02:53 Eosinophils # (Manual) 0.4 K/mm3 (0.0-0.4) 11/24/19 02:53 Basophils # (Manual) 0.0 K/mm3 (0.0-0.1) 11/24/19 02:53 Metamyelocytes # 0.0 K/mm3 11/24/19 02:53 Myelocytes # 0.0 K/mm3 11/24/19 02:53 Promyelocytes # 0.0 K/mm3 11/24/19 02:53 Blast Cells # 0.0 K/mm3 11/24/19 02:53 WBC Morphology Not Reportable 11/24/19 02:53 Hypersegmented Neuts Not Reportable 11/24/19 02:53 Hyposegmented Neuts Not Reportable 11/24/19 02:53 Hypogranular Neuts Not Reportable 11/24/19 02:53 Smudge Cells Not Reportable 11/24/19 02:53 Toxic Granulation Not Reportable 11/24/19 02:53 Toxic Vacuolation Not Reportable 11/24/19 02:53 Dohle Bodies Not Reportable 11/24/19 02:53 Pelger-Huet Anomaly Not Reportable 11/24/19 02:53 Hector Rods Not Reportable 11/24/19 02:53 Platelet Estimate Consistent w auto 11/24/19 02:53 Clumped Platelets Not Reportable 11/24/19 02:53 Plt Clumps, EDTA Not Reportable 11/24/19 02:53 Large Platelets Not Reportable 11/24/19 02:53 Giant Platelets Not Reportable 11/24/19 02:53 Platelet Satelliting Not Reportable 11/24/19 02:53 Plt Morphology Comment Not Reportable 11/24/19 02:53 RBC Morphology Not Reportable 11/24/19 02:53 Dimorphic RBCs Not Reportable 11/24/19 02:53 Polychromasia Not Reportable 11/24/19 02:53 Hypochromasia Not Reportable 11/24/19 02:53 Poikilocytosis Not Reportable 11/24/19 02:53 Anisocytosis Few 11/24/19 02:53 Microcytosis Not Reportable 11/24/19 02:53 Macrocytosis Not Reportable 11/24/19 02:53 Spherocytes Not Reportable 11/24/19 02:53 Pappenheimer Bodies Not Reportable 11/24/19 02:53 Sickle Cells Not Reportable 11/24/19 02:53 Target Cells Not Reportable 11/24/19 02:53 Tear Drop Cells Not Reportable 11/24/19 02:53 Ovalocytes Not Reportable 11/24/19 02:53 Helmet Cells Not Reportable 11/24/19 02:53 [place] Bodies Not Reportable 11/24/19 02:53 [place] Rings Not Reportable 11/24/19 02:53 [place] Cells Not Reportable 11/24/19 02:53 Bite Cells Not Reportable 11/24/19 02:53 Crenated Cell Not Reportable 11/24/19 02:53 Elliptocytes Not Reportable 11/24/19 02:53 Acanthocytes (Spur) Not Reportable 11/24/19 02:53 Rouleaux Not Reportable 11/24/19 02:53 Hemoglobin C Crystals Not Reportable 11/24/19 02:53 Schistocytes Not Reportable 11/24/19 02:53 Malaria parasites Not Reportable 11/24/19 02:53 Clifford Bodies Not Reportable 11/24/19 02:53 Hem Pathologist Commnt No 11/24/19 02:53 PT 12.7 Sec. (12.2-14.9) 11/25/19 05:11 INR 0.94 (0.87-1.13) 11/25/19 05:11 ABG pH 7.439 (7.320-7.450) 12/02/19 12:58 POC ABG pCO2 45.1 mmHg (32.0-48.0) 12/02/19 12:58 ABG pCO2 43.4 mm Hg 11/30/19 04:56 POC ABG pO2 78.1 mmHg (83-108) L 12/02/19 12:58 ABG pO2 56.3 mm Hg (80.0-90.0) L 11/30/19 04:56 POC ABG HCO3 29.9 12/02/19 12:58 ABG HCO3 29.3 mmol/L (20.0-26.0) H 11/30/19 04:56 ABG O2 Saturation 91.5 % (95.0-99.0) L 11/30/19 04:56 ABG O2 Content 15.1 (0.0-44) 11/30/19 04:56 POC ABG Base Excess 5.0 12/02/19 12:58 ABG Base Excess 4.7 mmol/L (-2.0-3.0) H 11/30/19 04:56 ABG Hemoglobin 13.6 (12.0-17.5) 12/02/19 12:58 ABG Oxyhemoglobin 94.7 (94-98) 12/02/19 12:58 ABG Carboxyhemoglobin 2.2 % (0.0-5.0) 11/30/19 04:56 ABG Methemoglobin 0 (0.0-1.5) 12/02/19 12:58 Oxyhemoglobin 89.2 % (95.0-99.0) L 11/30/19 04:56 Carboxyhemoglobin 1.3 (0.5-1.5) 12/02/19 12:58 FiO2 50 12/02/19 12:58 Sodium 148 mmol/L (137-145) H 12/06/19 05:24 Potassium 5.1 mmol/L (3.6-5.0) H 12/06/19 05:24 Chloride 107.6 mmol/L (98-107) H 12/06/19 05:24 Carbon Dioxide 30 mmol/L (22-30) 12/06/19 05:24 Anion Gap 16 mmol/L 12/06/19 05:24 BUN 27 mg/dL (9-20) H 12/06/19 05:24 Creatinine 0.7 mg/dL (0.8-1.3) L 12/06/19 05:24 Estimated GFR > 60 ml/min 12/06/19 05:24 BUN/Creatinine Ratio 39 % 12/06/19 05:24 Glucose 155 mg/dL (75-100) H 12/06/19 05:24 POC Glucose 111 (70-105) H 12/07/19 05:34 Lactic Acid 2.50 mmol/L (0.7-2.0) H* 11/24/19 10:37 Calcium 10.0 mg/dL (8.4-10.2) 12/06/19 05:24 Phosphorus 2.60 mg/dL (2.5-4.5) 12/06/19 05:24 Magnesium 2.30 mg/dL (1.7-2.3) 12/01/19 12:16 Ferritin 84.4 ng/mL (30.0-300.0) 11/24/19 04:53 Total Bilirubin 0.50 mg/dL (0.1-1.2) 12/01/19 12:16 AST 48 units/L (5-40) H 12/01/19 12:16 ALT 60 units/L (7-56) H 12/01/19 12:16 Alkaline Phosphatase 45 units/L (35-129) 12/01/19 12:16 Lactate Dehydrogenase 194 units/L (91-180) H 12/01/19 12:16 Total Creatine Kinase 141 units/L (55-170) 11/24/19 02:53 CK-MB (CK-2) 4.3 ng/mL (0.0-4.0) H 11/24/19 02:53 CK-MB (CK-2) Rel Index 3.0 (0-4) 11/24/19 02:53 Troponin T < 0.010 ng/mL (0.00-0.029) 11/24/19 02:53 C-Reactive Protein 8.50 mg/dL (0.00-1.30) H 12/01/19 12:16 NT-Pro-B Natriuret Pep 286.1 pg/mL (0-900) 11/29/19 15:37 Total Protein 5.5 g/dL (6.3-8.2) L 12/01/19 12:16 Albumin 2.8 g/dL (3.9-5) L 12/01/19 12:16 Albumin/Globulin Ratio 1.0 % 12/01/19 12:16 Procalcitonin 1.59 ng/mL (<0.15) 12/02/19 05:16 Urine Color Cecy (Yellow) 12/03/19 06:03 Urine Turbidity Clear (Clear) 12/03/19 06:03 Urine pH 5.0 (5.0-7.0) 12/03/19 06:03 Ur Specific [place] 1.030 (1.003-1.030) 12/03/19 06:03 Urine Protein <15 mg/dl mg/dL (Negative) 12/03/19 06:03 Urine Glucose (UA) Neg mg/dL (Negative) 12/03/19 06:03 Urine Ketones Neg mg/dL (Negative) 12/03/19 06:03 Urine Blood Neg (Negative) 12/03/19 06:03 Urine Nitrite Neg (Negative) 12/03/19 06:03 Urine Bilirubin Neg (Negative) 12/03/19 06:03 Urine Urobilinogen 4.0 mg/dL (<2.0) 12/03/19 06:03 Ur Leukocyte Esterase Neg (Negative) 12/03/19 06:03 Urine WBC (Auto) 8.0 /HPF (0.0-6.0) H 12/03/19 06:03 Urine RBC (Auto) 2.0 /HPF (0.0-6.0) 12/03/19 06:03 Urine Bacteria (Auto) 1+ /HPF (Negative) 12/03/19 06:03 Urine Mucus 1+ /HPF 12/03/19 06:03 Coronavirus (PCR) Negative (Negative) 11/26/19 08:26 Microbiology: Microbiology 12/02/19 20:32 Peripheral/Venous Blood Culture - Preliminary NO GROWTH AFTER 4 DAYS 12/02/19 20:05 Peripheral/Venous Blood Culture - Preliminary NO GROWTH AFTER 4 DAYS 12/06/19 14:05 Peripheral/Venous Blood Culture - Preliminary Culture in Progress 12/06/19 14:05 Peripheral/Venous Blood Culture - Preliminary Culture in Progress 12/04/19 14:40 Tracheal Aspirate Sputum Culture - Final Pseudomonas Aeruginosa - Diagnostic Impressions Diagnostic Impressions: Echocardiogram 11/29/19 07:37 Transthoracic Echocardiogram Indication: CHF BP: 116/72 HR: 33 Conclusions *The study is technically limited due to poor acoustic windows. *Global left ventricular systolic function is normal. *The estimated ejection fraction is 50-55%. *Mild concentric left ventricular hypertrophy is observed. *There is trace of mitral regurgitation. *There is mild tricuspid regurgitation. Findings Procedure Info: The study quality is poor. The study is technically limited due to poor acoustic windows. The study is technically limited due to patient body habitus. Left Ventricle: The left ventricular chamber size is normal. Mild concentric left ventricular hypertrophy is observed. Global left ventricular systolic function is normal. The estimated ejection fraction is 50-55%. Left Atrium: The left atrial chamber size is normal. Right Ventricle: The right ventricular cavity size is normal. Right Atrium: The right atrial cavity size is normal. Aortic Valve: The aortic valve leaflets are moderately thickened. There is trace of aortic regurgitation. There is no evidence of aortic stenosis. Mitral Valve: The mitral valve leaflets are mildly thickened. There is trace of mitral regurgitation. There is no evidence of mitral stenosis. Tricuspid Valve: There is mild tricuspid regurgitation. No pulmonary hypertension is noted. Pulmonic Valve: There is trace pulmonic regurgitation. Pericardium: There is no pericardial effusion. Aorta: There is no dilatation of the aortic root. Venous: The inferior vena cava appears normal in size. Contrast: Definity was used to optimize study. Intravenous contrast was used to enhance endocardial border definition. Measurements Chambers 2D Name Value Normal Range Ao root diameter (2D) 3.4 cm (2 - 3.7) Aortic Valve Name Value Normal Range AV Vmax 0.98 m/sec - AV VTI 16.76 cm - AV peak gradient 3.83 mmHg - AV mean gradient 2.57 mmHg - LVOT diameter 3.11 cm - LVOT Vmax 0.68 m/sec - LVOT VTI 11.52 cm - LVOT peak gradient 1.84 mmHg - LVOT mean gradient 1.27 mmHg - SV LVOT 87.31 ml - MALOU (continuity Vmax) 5.24 cm2 - MALOU (continuity VTI) 5.21 cm2 - Tricuspid Valve Name Value Normal Range IVC diameter 2.24 cm (1.2 - 2.3) Hoffman/IV: Voiding Method Indwelling Catheter IV Catheter Type [Left Hand] INT / Saline Lock IV Catheter Type [Left Wrist] INT / Saline Lock IV Catheter Type [Right INT / Saline Lock Antecubital] Active Medications - Current Medications Current Medications: Generic Name Dose Route Start Last Admin Trade Name Freq PRN Reason Stop Dose Admin Acetaminophen 650 mg 11/25/19 17:27 12/06/19 22:19 Tylenol FEEDTUBE 650 mg Q6H PRN Administration Pain, Mild (1-3) Amiodarone HCl 200 mg 12/04/19 14:00 12/06/19 22:20 Cordarone PO 200 mg BID CAR Administration Docusate Sodium 100 mg 12/02/19 22:00 12/06/19 22:20 Colace FEEDTUBE 100 mg BID CAR Administration Famotidine 20 mg 11/25/19 10:00 12/06/19 22:20 Pepcid PO 20 mg BID CAR Administration Fentanyl 50 mcg 11/24/19 09:55 Sublimaze IV Q10MIN PRN ANALGESIA Haloperidol Lactate 5 mg 12/01/19 10:23 Haldol IV Q1H PRN Unrespon. to mult. doses BZD's Heparin Sodium (Porcine) 5,000 unit 11/24/19 06:00 12/07/19 05:42 Heparin SUB-Q 5,000 unit Q8HR CAR Administration Hydrophilic Ointment 1 applic 11/24/19 02:23 Vaseline Lip Therapy TP Q2HR PRN Dry Lips Fentanyl Citrate 2,000 mcg in 100 mls @ 5.67 mls/hr 11/24/19 10:00 12/07/19 07:47 Fentanyl Drip Premix IV 0 mcg/kg/hr TITR CAR 0 mls/hr Titration Protocol 1 MCG/KG/HR Propofol 1,000 mg in 100 mls @ 3.402 mls/hr 11/28/19 17:25 Diprivan 10 Mg/Ml IV TITR CAR Protocol 5 MCG/KG/MIN Cefepime HCl 2 gm in 100 mls @ 200 mls/hr 12/06/19 14:00 12/07/19 06:15 Cefepime/Ns 2 Gm/100 Ml IV Infused Q8HR CAR Infusion Protocol Vancomycin HCl 1,500 mg/ 530 mls @ 333.333 mls/hr 12/07/19 04:00 12/07/19 05:44 Sodium Chloride IV Infused Q12H CAR Infusion Insulin Human Lispro 0 unit 12/05/19 19:00 12/07/19 06:24 Humalog SUB-Q Not Given Q6H CAR Protocol Lorazepam 2 mg 12/01/19 10:23 12/06/19 23:03 Ativan IV 2 mg Q1H PRN Administration CIWA-Ar 8-15 Lorazepam 4 mg 12/01/19 10:23 Ativan IV Q1H PRN CIWA-Ar 16-25 Lorazepam 4 mg 12/01/19 10:23 Ativan IV Q15MIN PRN CIWA-Ar >25 Metoprolol Tartrate 2.5 mg 12/02/19 12:00 12/07/19 05:43 Metoprolol IV 2.5 mg Q6HR CAR Administration Multi-Ingred Cream/Lotion/Oil/Oint 1 applic 11/24/19 02:23 Artificial Tears Ophth Oint OU Q4HR PRN Dry Eye(s) Ondansetron HCl 4 mg 11/24/19 05:31 Zofran IV Q8H PRN Nausea And Vomiting Polyethylene Glycol 17 gm 12/04/19 22:00 12/06/19 22:19 Miralax 3350 PO 17 gm QHS CAR Administration Quetiapine Fumarate 100 mg 11/28/19 22:00 12/06/19 22:19 Seroquel PO 100 mg QHS CAR Administration Sodium Chloride 10 ml 11/24/19 10:00 12/06/19 22:26 Sodium Chloride Flush Syringe 10 Ml IV 10 ml BID CAR Administration Sodium Chloride 10 ml 11/24/19 05:31 Sodium Chloride Flush Syringe 10 Ml IV PRN PRN LINE FLUSH Nutrition/Malnutrition Assess - Dietary Evaluation Nutrition/Malnutrition Findings: Nutrition Notes Start: 11/24/19 12:22 Freq: Status: Active Protocol: Document 12/01/19 13:35 HEATHER (Rec: 12/01/19 13:46 HEATHER [id number]) Co-Sign 12/01/19 13:35 LP Nutrition Notes Initial or Follow up Reassessment Current Diagnosis Coronary Artery Disease,Heart Failure,Respiratory Failure, Stroke,Hyperlipidemia Current Diet TF Vital HP 65ml/hr Labs/Tests Reviewed Pertinent Medications Lasix Height 6 ft 2 in Weight 113.39 kg [place] Body Weight (kg) 86.36 BMI 32.1 Weight Status Obese Subjective/Other Information Per RN, pt is tolerating TF at goal rate. Pt remains on vent . Percent of energy/protein needs met: 98%/79% Burn Absent Trauma Absent GI Symptoms None Usual Diet at Home unknown Skin Integrity/Comment intact Current % PO Negligible Minimum of two criteria No physical signs of malnutrition #1 Nutrition Diagnosis Inadequate oral intake Diagnosis Progress(for reassessment Continues documentation) Is patient on ventilator? Yes Is Patient Ambulatory and/or Out of Bed No REE-([place]-St. Jeor-confined to bed) 2403.072 Kcal/Kg value to use for calculation 14 Approximate Energy Requirements Using 1587 kcal/Kg Calculation Used for Recommendations Kcal/kg Additional Notes Protein needs 173g (up to 2g/ kg IBW) Fluid needs are 1.5L Nutrition Intervention Change Diet Order: Continue TF Nutrition Support: Vital HP at 65ml/hr Flush 50ml q4hr Kcal 1,560 Protein (gm) 114 Fluid (mL) 1,304 % RDI: 100 Goal #1 TF will provide at least 65-70 % of energy needs and 80% of protein needs. Goal #2 TF tolerance Anticipated Discharge Needs: unable to determine at this time Follow-Up By: 12/08/19 Additional Comments F/u for stable TF and wt
--- NOTE | 2019-12-07 11:21 | Progress Note ---
Assessment and Plan Multifocal pneumonia with intermittent fevers negative COVID-19 test Respiratory failure Transient Afib after CPAP trial currently in sinus rhythm Ischemic Cardiomyopathy, resolving re-echo this presentation reports an LVEF 40-45%. echo 08/2018: decreased LVEF 20-25%. Hx of CAD [facility] 12/2018: mild in-stent restenosis. No significant residual disease. Recommendations: Continue oral amiodarone and metoprolol for paroxysmal atrial fibrillation. Anticoagulation currently is with subcutaneous heparin. Ultimately, when he is stable of the event he will need transition to an oral anti-coagulant. Subjective Date of service: 12/07/19 Principal diagnosis: Ac hypoxemic resp failure; Pneumonia; PUI COVID-19; CHF; COPD; HTN Interval history: Patient remains intubated on mechanical ventilation. Stable sinus rhythm on telemetry. Objective Vital Signs Temp Pulse Pulse Resp Resp BP Pulse Ox 12/07/19 11:00 81 19 117/72 99 12/07/19 10:46 83 20 110/74 97 12/07/19 10:30 84 17 120/76 99 12/07/19 10:16 84 22 110/74 98 12/07/19 10:00 80 18 110/74 99 12/07/19 09:46 79 17 103/67 98 12/07/19 09:30 79 15 103/67 98 12/07/19 09:16 79 20 106/69 97 12/07/19 09:00 82 17 113/70 98 12/07/19 08:46 81 19 107/70 98 12/07/19 08:30 77 17 106/69 96 12/07/19 08:16 78 18 100/67 97 12/07/19 08:00 98.2 F 81 19 107/70 98 12/07/19 07:54 98.2 F 12/07/19 07:46 97 H 19 100/67 100 12/07/19 07:33 76 100/67 99 12/07/19 07:30 76 10 L 100/67 99 12/07/19 07:15 76 15 98/65 99 12/07/19 07:00 76 15 98/65 99 12/07/19 06:45 76 22 100/69 100 12/07/19 06:30 76 18 100/69 99 12/07/19 06:15 74 15 105/68 99 12/07/19 06:00 76 20 105/68 99 12/07/19 05:45 83 17 97/64 99 12/07/19 05:43 83 97/64 12/07/19 05:30 76 13 97/64 99 12/07/19 05:15 77 12 100/63 99 12/07/19 05:00 77 14 100/63 99 12/07/19 04:45 78 13 101/61 98 12/07/19 04:30 80 13 101/61 97 12/07/19 04:20 80 105/69 99 12/07/19 04:15 81 15 105/69 99 12/07/19 04:00 82 82 12 105/69 99 12/07/19 03:45 81 18 93/61 99 12/07/19 03:33 99 F 12/07/19 03:30 82 17 93/61 97 12/07/19 03:15 83 16 106/64 99 12/07/19 03:00 84 13 106/64 99 12/07/19 02:45 81 14 105/68 98 12/07/19 02:30 82 17 105/68 99 12/07/19 02:15 81 19 102/67 98 12/07/19 02:00 82 15 102/67 98 12/07/19 01:45 85 16 99/65 98 12/07/19 01:30 84 16 99/65 97 12/07/19 01:15 85 18 123/79 97 12/07/19 01:04 93 H 123/79 12/07/19 01:00 99 H 23 123/79 99 12/07/19 00:45 87 16 100/66 97 12/07/19 00:30 87 15 100/66 97 12/07/19 00:15 88 14 100/62 97 12/07/19 00:00 89 86 15 100/62 96 12/06/19 23:45 93 H 14 104/65 96 12/06/19 23:38 101.1 F H 12/06/19 23:30 96 H 14 104/65 97 12/06/19 23:15 101 H 13 117/70 97 12/06/19 23:13 102 H 117/70 97 12/06/19 23:09 101 H 13 117/70 98 12/06/19 23:00 100 H 12 117/70 97 12/06/19 22:45 103 H 16 128/83 96 12/06/19 22:30 107 H 11 L 128/83 98 12/06/19 22:15 106 H 15 116/75 99 12/06/19 22:00 102 H 16 116/75 98 12/06/19 21:45 105 H 14 161/101 98 12/06/19 21:30 103 H 15 127/80 99 12/06/19 21:15 106 H 13 161/101 97 12/06/19 21:00 119 H 16 161/101 99 12/06/19 20:45 109 H 17 118/75 99 12/06/19 20:30 112 H 16 118/75 97 12/06/19 20:15 110 H 18 135/86 96 12/06/19 20:00 117 H 113 H 16 20 135/86 96 12/06/19 19:45 117 H 18 130/80 97 12/06/19 19:37 102.2 F H 12/06/19 19:36 126 H 187/109 97 12/06/19 19:31 141 H 24 130/80 94 12/06/19 19:15 143 H 16 130/80 91 12/06/19 19:00 102 H 16 130/80 96 12/06/19 18:45 103 H 14 123/81 95 12/06/19 18:30 102 H 15 123/81 96 12/06/19 18:15 104 H 18 205/164 95 12/06/19 18:13 105 H 205/164 97 12/06/19 18:01 124 H 21 205/164 98 12/06/19 17:50 98 H 20 134/84 98 12/06/19 17:45 87 16 123/80 97 12/06/19 17:30 98 H 12 134/86 99 12/06/19 17:15 91 H 13 123/80 98 12/06/19 17:00 90 12 123/80 99 12/06/19 16:45 85 15 128/84 99 12/06/19 16:30 86 11 L 128/78 98 12/06/19 16:15 85 12 120/80 99 12/06/19 16:00 99.5 F 86 87 14 128/84 99 12/06/19 15:45 83 14 128/80 99 12/06/19 15:30 86 11 L 120/80 99 12/06/19 15:15 87 12 127/87 99 12/06/19 15:00 86 14 128/80 100 12/06/19 14:45 87 17 127/87 99 12/06/19 14:30 90 17 127/87 98 12/06/19 14:15 87 18 119/75 98 12/06/19 14:00 88 20 119/75 99 12/06/19 13:45 89 16 100/66 98 12/06/19 13:31 91 H 12 120/78 98 12/06/19 13:15 83 13 100/66 100 12/06/19 13:00 81 14 100/66 99 12/06/19 12:50 82 16 107/69 98 12/06/19 12:45 80 26 H 107/69 98 12/06/19 12:30 82 17 107/69 99 12/06/19 12:15 84 17 105/70 100 12/06/19 12:00 99.3 F 94 H 87 13 105/70 98 12/06/19 11:45 85 19 105/69 99 12/06/19 11:30 85 14 105/69 98 - Physical Examination General: Other (intubated on the vent) Cardiac: Positive: Reg Rate and Rhythm - Allied health notes Allied health notes reviewed: nursing
[2019-12-07] MEDS: DOCUSATE SODIUM 100 MG/10 ML ORAL LIQD FEEDTUBE SCH ×2 (11:29→22:12)
[2019-12-07] MEDS: AMIODARONE 200 MG TAB PO SCH ×2 (11:30→21:48)
[2019-12-07] MEDS: FAMOTIDINE 20 MG TAB PO SCH ×2 (11:30→21:48)
--- NOTE | 2019-12-07 12:06 | Progress Note ---
Assessment and Plan Acute hypoxemic respiratory failure Bilateral pneumonia, community acquired. Person under investigation for COVID-19 infection. Acute congestive heart failure exacerbation. History of cerebrovascular accident. Acute chronic obstructive pulmonary disease exacerbation. Hypertension and hypertensive urgency at presentation. History of arthritis. Leukocytosis. Lactic acidosis. Oropharyngeal dysphagia - RT told to resume SBT; increase p-supp up yo 20 cm H2O as needed before resting - attempted to call but got voice mail; plan is to wean aggressively over nect 48 hours and give a trial of extubation if meets criteria then - tracheostomy thereafter if fails - now s/p BM; continue bowel regimen - repeat CXR tomorrow - keep peep at 8 cm H2O - continue chest PT to RLL region - continue low dose seroquel - COVID isolation per facility protocol - free water for hypernatremia - continue care as below otherwise; - continue diuresis while following electrolytes / I's & O's - continue to wean oxygen for O2 sat's > 92% - continue bronchodilators with pulmonary hygiene per RT - VAP bundle addressed (Aspiration precautions, HOB >40) - daily SAT's and SBT assessment as tolerated - continue to wean per pulmonary driven protocols - sedation target is RASS 0 to -1 - continue prn analgesia per CPOT score - follow clinically re: fever curves / trend WBC - Avoid delirium (no benzodiazepines if they can be avoided) - Maintain sleep-wake cycle - enteral nutrition at goal rate as tolerated - continue accucheck's with glycemic control per SSI for target blood glucose goal of 140-180 mg/dL while critically ill; Avoid hypoglycemia - continue VTE prophylaxis with Heparin - continue stress ulcer prophylaxis with Famotidine - continue mobility protocols for pressure ulcer prophylaxis - continue fall precautions - continue wound care management per RN / WCT - Supportive transfusions to keep HgB>7g/dL - CXR's and ABG's prn - Continue to monitor neurologic function - Continue chronic home medications - Continue all supportive care ........ re-evaluate in am & prn CONDITION: CRITICAL PROGNOSIS: GUARDED CODE STATUS: FULL CODE The high probability of a clinically significant, sudden or life threatening deterioration of the [Respiratory, cardiovascular & neurological] system(s) required my full and direct attention, intervention and personal management. The aggregate critical care time was [33] minutes without overlap. Time includes spent on [x] Data Review and interpretation [x] Patient assessment and monitoring of vital signs [x] Documentation [x] Medication orders and management Subjective Date of service: 12/07/19 Principal diagnosis: Ac hypoxemic resp failure; Pneumonia; PUI COVID-19; CHF; COPD; HTN Interval history: Patient is seen today for: Acute hypoxemic respiratory failure; Adan. Pneumonia (CAP); PUI COVID-19 infection; AE-CHF; AE-COPD; H/O CVA; HTN Seen and examined at bedside; 24 hour events reviewed; nursing and respiratory care staff consulted; no adverse overnight events reported to me; resting peacefully in bed; + tachyarrythmia's today; tolerated a couple hours on PSV but rested due to increased work of breathing; denies pain; No N/V/F/C Objective Vital Signs - 12hr 12/07/19 12/07/19 12/07/19 00:15 00:30 00:45 Temperature Pulse Rate 88 87 87 Pulse Rate [ From Monitor] Respiratory 14 15 16 Rate Blood Pressure 100/62 100/66 100/66 O2 Sat by Pulse 97 97 97 Oximetry 12/07/19 12/07/19 12/07/19 01:00 01:04 01:15 Temperature Pulse Rate 99 H 93 H 85 Pulse Rate [ From Monitor] Respiratory 23 18 Rate Blood Pressure 123/79 123/79 123/79 O2 Sat by Pulse 99 97 Oximetry 12/07/19 12/07/19 12/07/19 01:30 01:45 02:00 Temperature Pulse Rate 84 85 82 Pulse Rate [ From Monitor] Respiratory 16 16 15 Rate Blood Pressure 99/65 99/65 102/67 O2 Sat by Pulse 97 98 98 Oximetry 12/07/19 12/07/19 12/07/19 02:15 02:30 02:45 Temperature Pulse Rate 81 82 81 Pulse Rate [ From Monitor] Respiratory 19 17 14 Rate Blood Pressure 102/67 105/68 105/68 O2 Sat by Pulse 98 99 98 Oximetry 12/07/19 12/07/19 12/07/19 03:00 03:15 03:30 Temperature Pulse Rate 84 83 82 Pulse Rate [ From Monitor] Respiratory 13 16 17 Rate Blood Pressure 106/64 106/64 93/61 O2 Sat by Pulse 99 99 97 Oximetry 12/07/19 12/07/19 12/07/19 03:33 03:45 04:00 Temperature 99 F Pulse Rate 81 82 Pulse Rate [ 82 From Monitor] Respiratory 18 12 Rate Blood Pressure 93/61 105/69 O2 Sat by Pulse 99 99 Oximetry 12/07/19 12/07/19 12/07/19 04:15 04:20 04:30 Temperature Pulse Rate 81 80 80 Pulse Rate [ From Monitor] Respiratory 15 13 Rate Blood Pressure 105/69 105/69 101/61 O2 Sat by Pulse 99 99 97 Oximetry 12/07/19 12/07/19 12/07/19 04:45 05:00 05:15 Temperature Pulse Rate 78 77 77 Pulse Rate [ From Monitor] Respiratory 13 14 12 Rate Blood Pressure 101/61 100/63 100/63 O2 Sat by Pulse 98 99 99 Oximetry 12/07/19 12/07/19 12/07/19 05:30 05:43 05:45 Temperature Pulse Rate 76 83 83 Pulse Rate [ From Monitor] Respiratory 13 17 Rate Blood Pressure 97/64 97/64 97/64 O2 Sat by Pulse 99 99 Oximetry 12/07/19 12/07/19 12/07/19 06:00 06:15 06:30 Temperature Pulse Rate 76 74 76 Pulse Rate [ From Monitor] Respiratory 20 15 18 Rate Blood Pressure 105/68 105/68 100/69 O2 Sat by Pulse 99 99 99 Oximetry 12/07/19 12/07/19 12/07/19 06:45 07:00 07:15 Temperature Pulse Rate 76 76 76 Pulse Rate [ From Monitor] Respiratory 22 15 15 Rate Blood Pressure 100/69 98/65 98/65 O2 Sat by Pulse 100 99 99 Oximetry 12/07/19 12/07/19 12/07/19 07:30 07:33 07:46 Temperature Pulse Rate 76 76 97 H Pulse Rate [ From Monitor] Respiratory 10 L 19 Rate Blood Pressure 100/67 100/67 100/67 O2 Sat by Pulse 99 99 100 Oximetry 12/07/19 12/07/19 12/07/19 07:54 08:00 08:16 Temperature 98.2 F 98.2 F Pulse Rate 81 78 Pulse Rate [ From Monitor] Respiratory 19 18 Rate Blood Pressure 107/70 100/67 O2 Sat by Pulse 98 97 Oximetry 12/07/19 12/07/19 12/07/19 08:30 08:46 09:00 Temperature Pulse Rate 77 81 82 Pulse Rate [ From Monitor] Respiratory 17 19 17 Rate Blood Pressure 106/69 107/70 113/70 O2 Sat by Pulse 96 98 98 Oximetry 12/07/19 12/07/19 12/07/19 09:16 09:30 09:46 Temperature Pulse Rate 79 79 79 Pulse Rate [ From Monitor] Respiratory 20 15 17 Rate Blood Pressure 106/69 103/67 103/67 O2 Sat by Pulse 97 98 98 Oximetry 12/07/19 12/07/19 12/07/19 10:00 10:16 10:30 Temperature Pulse Rate 80 84 84 Pulse Rate [ From Monitor] Respiratory 18 22 17 Rate Blood Pressure 110/74 110/74 120/76 O2 Sat by Pulse 99 98 99 Oximetry 12/07/19 12/07/19 12/07/19 10:46 11:00 11:14 Temperature Pulse Rate 83 81 87 Pulse Rate [ From Monitor] Respiratory 20 19 18 Rate Blood Pressure 110/74 117/72 117/72 O2 Sat by Pulse 97 99 98 Oximetry Constitutional: no acute distress, agitated, other (elderly and obese male, normocephalic with mildly increased respiratory effort at rest on MVS) Eyes: non-icteric ENT: oropharynx moist, other (ETT 24 cm JASON) Neck: supple, no JVD Effort: very labored Ascultation: Bilateral: diminished breath sounds, rhonchi (scant; improved RLL air entry also) Percussion: Bilateral: not dull Cardiovascular: irregular rhythm Gastrointestinal: normoactive bowel sounds, soft, non-tender, non-distended Integumentary: normal Extremities: no cyanosis, no edema, pulses normal, no ischemia or petechiae Neurologic: non-focal exam (moves all extremities with extreme agitation), pupils equal and round, motor strength normal and, other (sedated lightly) Psychiatric: mood appropriate, affect normal CBC and BMP: 12/06/19 05:24 12/06/19 05:24 ABG, PT/INR, D-dimer: ABG ABG pH 7.439 (7.320-7.450) 12/02/19 12:58 POC ABG pCO2 45.1 mmHg (32.0-48.0) 12/02/19 12:58 ABG pCO2 43.4 mm Hg 11/30/19 04:56 POC ABG pO2 78.1 mmHg (83-108) L 12/02/19 12:58 ABG pO2 56.3 mm Hg (80.0-90.0) L 11/30/19 04:56 POC ABG HCO3 29.9 12/02/19 12:58 ABG O2 Saturation 91.5 % (95.0-99.0) L 11/30/19 04:56 PT/INR, D-dimer PT 12.7 Sec. (12.2-14.9) 11/25/19 05:11 INR 0.94 (0.87-1.13) 11/25/19 05:11 Abnormal lab findings: Abnormal Labs 11/24/19 11/24/19 11/24/19 02:53 02:53 03:45 WBC 14.3 H Hgb Hct RDW 17.2 H Lymph % (Auto) [place] % (Auto) [place] # Eos # Seg Neutrophils % Seg Neutrophils # Seg Neutrophils # Man 8.3 H Monocytes # (Manual) 0.9 H ABG pH 7.313 L POC ABG pO2 ABG pO2 102.8 H ABG HCO3 ABG O2 Saturation ABG Base Excess -2.9 L ABG Hemoglobin ABG Oxyhemoglobin Oxyhemoglobin 93.9 L Sodium Potassium Chloride BUN Creatinine Glucose 195 H POC Glucose Lactic Acid Calcium Phosphorus AST ALT Lactate Dehydrogenase CK-MB (CK-2) 4.3 H C-Reactive Protein NT-Pro-B Natriuret Pep 1181 H Total Protein Albumin Urine WBC (Auto) 11/24/19 11/24/19 11/24/19 04:53 04:53 10:37 WBC Hgb Hct RDW Lymph % (Auto) [place] % (Auto) [place] # Eos # Seg Neutrophils % Seg Neutrophils # Seg Neutrophils # Man Monocytes # (Manual) ABG pH POC ABG pO2 ABG pO2 ABG HCO3 ABG O2 Saturation ABG Base Excess ABG Hemoglobin ABG Oxyhemoglobin Oxyhemoglobin Sodium Potassium Chloride BUN Creatinine Glucose 162 H POC Glucose Lactic Acid 2.40 H* 2.50 H* Calcium Phosphorus AST ALT Lactate Dehydrogenase 240 H CK-MB (CK-2) C-Reactive Protein NT-Pro-B Natriuret Pep Total Protein Albumin Urine WBC (Auto) 11/24/19 11/24/19 11/24/19 12:21 14:50 19:54 WBC Hgb Hct RDW Lymph % (Auto) [place] % (Auto) [place] # Eos # Seg Neutrophils % Seg Neutrophils # Seg Neutrophils # Man Monocytes # (Manual) ABG pH POC ABG pO2 ABG pO2 ABG HCO3 ABG O2 Saturation ABG Base Excess ABG Hemoglobin ABG Oxyhemoglobin Oxyhemoglobin Sodium Potassium Chloride BUN Creatinine Glucose POC Glucose 145 H 143 H 124 H Lactic Acid Calcium Phosphorus AST ALT Lactate Dehydrogenase CK-MB (CK-2) C-Reactive Protein NT-Pro-B Natriuret Pep Total Protein Albumin Urine WBC (Auto) 11/25/19 11/25/19 11/25/19 00:18 03:18 05:11 WBC 13.7 H Hgb Hct RDW 17.1 H Lymph % (Auto) 10.8 L [place] % (Auto) 8.7 H [place] # 1.2 H Eos # Seg Neutrophils % 80.2 H Seg Neutrophils # 11.0 H Seg Neutrophils # Man Monocytes # (Manual) ABG pH 7.333 L POC ABG pO2 ABG pO2 61.2 L ABG HCO3 ABG O2 Saturation 90.2 L ABG Base Excess ABG Hemoglobin 13.7 L ABG Oxyhemoglobin Oxyhemoglobin 88.2 L Sodium Potassium Chloride BUN Creatinine Glucose POC Glucose 109 H Lactic Acid Calcium Phosphorus AST ALT Lactate Dehydrogenase CK-MB (CK-2) C-Reactive Protein NT-Pro-B Natriuret Pep Total Protein Albumin Urine WBC (Auto) 11/25/19 11/25/19 11/26/19 05:11 11:40 03:12 WBC Hgb Hct RDW Lymph % (Auto) [place] % (Auto) [place] # Eos # Seg Neutrophils % Seg Neutrophils # Seg Neutrophils # Man Monocytes # (Manual) ABG pH POC ABG pO2 ABG pO2 155.1 H ABG HCO3 27.8 H ABG O2 Saturation ABG Base Excess ABG Hemoglobin 12.2 L ABG Oxyhemoglobin Oxyhemoglobin Sodium Potassium Chloride BUN 23 H Creatinine Glucose 110 H POC Glucose 108 H Lactic Acid Calcium Phosphorus AST ALT Lactate Dehydrogenase CK-MB (CK-2) C-Reactive Protein NT-Pro-B Natriuret Pep Total Protein Albumin Urine WBC (Auto) 11/26/19 11/26/19 11/26/19 06:17 10:43 10:43 WBC 11.4 H Hgb Hct RDW 17.1 H Lymph % (Auto) [place] % (Auto) [place] # Eos # Seg Neutrophils % Seg Neutrophils # Seg Neutrophils # Man Monocytes # (Manual) ABG pH POC ABG pO2 ABG pO2 ABG HCO3 ABG O2 Saturation ABG Base Excess ABG Hemoglobin ABG Oxyhemoglobin Oxyhemoglobin Sodium Potassium Chloride BUN 29 H Creatinine Glucose POC Glucose 107 H Lactic Acid Calcium Phosphorus AST ALT Lactate Dehydrogenase CK-MB (CK-2) C-Reactive Protein NT-Pro-B Natriuret Pep Total Protein Albumin Urine WBC (Auto) 11/26/19 11/27/19 11/27/19 17:11 01:53 04:11 WBC Hgb Hct RDW Lymph % (Auto) [place] % (Auto) [place] # Eos # Seg Neutrophils % Seg Neutrophils # Seg Neutrophils # Man Monocytes # (Manual) ABG pH POC ABG pO2 ABG pO2 ABG HCO3 29.2 H ABG O2 Saturation ABG Base Excess 3.4 H ABG Hemoglobin 13.3 L ABG Oxyhemoglobin Oxyhemoglobin 94.5 L Sodium Potassium Chloride BUN Creatinine Glucose POC Glucose 113 H 108 H Lactic Acid Calcium Phosphorus AST ALT Lactate Dehydrogenase CK-MB (CK-2) C-Reactive Protein NT-Pro-B Natriuret Pep Total Protein Albumin Urine WBC (Auto) 11/27/19 11/28/19 11/28/19 05:27 05:00 05:25 WBC Hgb Hct RDW Lymph % (Auto) [place] % (Auto) [place] # Eos # Seg Neutrophils % Seg Neutrophils # Seg Neutrophils # Man Monocytes # (Manual) ABG pH POC ABG pO2 68.1 L ABG pO2 ABG HCO3 ABG O2 Saturation ABG Base Excess ABG Hemoglobin ABG Oxyhemoglobin 91.2 L Oxyhemoglobin Sodium Potassium Chloride BUN Creatinine Glucose POC Glucose 111 H 110 H Lactic Acid Calcium Phosphorus AST ALT Lactate Dehydrogenase CK-MB (CK-2) C-Reactive Protein NT-Pro-B Natriuret Pep Total Protein Albumin Urine WBC (Auto) 11/28/19 11/28/19 11/28/19 12:08 13:47 13:47 WBC 11.3 H Hgb Hct RDW 16.1 H Lymph % (Auto) [place] % (Auto) 9.9 H [place] # 1.1 H Eos # Seg Neutrophils % 71.4 H Seg Neutrophils # 8.1 H Seg Neutrophils # Man Monocytes # (Manual) ABG pH POC ABG pO2 ABG pO2 ABG HCO3 ABG O2 Saturation ABG Base Excess ABG Hemoglobin ABG Oxyhemoglobin Oxyhemoglobin Sodium Potassium Chloride BUN 23 H Creatinine Glucose 123 H POC Glucose 112 H Lactic Acid Calcium Phosphorus AST ALT Lactate Dehydrogenase CK-MB (CK-2) C-Reactive Protein NT-Pro-B Natriuret Pep Total Protein Albumin 3.7 L Urine WBC (Auto) 11/28/19 11/29/19 11/29/19 17:26 03:55 17:04 WBC Hgb Hct RDW Lymph % (Auto) [place] % (Auto) [place] # Eos # Seg Neutrophils % Seg Neutrophils # Seg Neutrophils # Man Monocytes # (Manual) ABG pH POC ABG pO2 ABG pO2 65.7 L ABG HCO3 28.3 H ABG O2 Saturation 93.9 L ABG Base Excess 3.6 H ABG Hemoglobin 13.3 L ABG Oxyhemoglobin Oxyhemoglobin 91.5 L Sodium Potassium Chloride BUN Creatinine Glucose POC Glucose 123 H 119 H Lactic Acid Calcium Phosphorus AST ALT Lactate Dehydrogenase CK-MB (CK-2) C-Reactive Protein NT-Pro-B Natriuret Pep Total Protein Albumin Urine WBC (Auto) 11/30/19 11/30/19 11/30/19 04:17 04:17 04:56 WBC 13.4 H Hgb Hct RDW 15.6 H Lymph % (Auto) [place] % (Auto) [place] # Eos # Seg Neutrophils % Seg Neutrophils # Seg Neutrophils # Man Monocytes # (Manual) ABG pH POC ABG pO2 ABG pO2 56.3 L ABG HCO3 29.3 H ABG O2 Saturation 91.5 L ABG Base Excess 4.7 H ABG Hemoglobin 12.1 L ABG Oxyhemoglobin Oxyhemoglobin 89.2 L Sodium 147 H Potassium Chloride BUN 30 H Creatinine Glucose 124 H POC Glucose Lactic Acid Calcium Phosphorus AST ALT Lactate Dehydrogenase CK-MB (CK-2) C-Reactive Protein NT-Pro-B Natriuret Pep Total Protein Albumin 3.8 L Urine WBC (Auto) 11/30/19 11/30/19 11/30/19 05:51 11:54 18:17 WBC Hgb Hct RDW Lymph % (Auto) [place] % (Auto) [place] # Eos # Seg Neutrophils % Seg Neutrophils # Seg Neutrophils # Man Monocytes # (Manual) ABG pH POC ABG pO2 ABG pO2 ABG HCO3 ABG O2 Saturation ABG Base Excess ABG Hemoglobin ABG Oxyhemoglobin Oxyhemoglobin Sodium Potassium Chloride BUN Creatinine Glucose POC Glucose 127 H 115 H 143 H Lactic Acid Calcium Phosphorus AST ALT Lactate Dehydrogenase CK-MB (CK-2) C-Reactive Protein NT-Pro-B Natriuret Pep Total Protein Albumin Urine WBC (Auto) 12/01/19 12/01/19 12/01/19 01:18 05:22 12:16 WBC Hgb Hct RDW Lymph % (Auto) [place] % (Auto) [place] # Eos # Seg Neutrophils % Seg Neutrophils # Seg Neutrophils # Man Monocytes # (Manual) ABG pH POC ABG pO2 ABG pO2 ABG HCO3 ABG O2 Saturation ABG Base Excess ABG Hemoglobin ABG Oxyhemoglobin Oxyhemoglobin Sodium Potassium 3.5 L Chloride 107.8 H BUN 37 H Creatinine Glucose 157 H POC Glucose 118 H 148 H Lactic Acid Calcium 8.2 L D Phosphorus AST 48 H ALT 60 H Lactate Dehydrogenase 194 H CK-MB (CK-2) C-Reactive Protein 8.50 H NT-Pro-B Natriuret Pep Total Protein 5.5 L Albumin 2.8 L Urine WBC (Auto) 12/01/19 12/02/19 12/02/19 18:04 00:05 05:16 WBC 11.4 H Hgb Hct RDW 15.9 H Lymph % (Auto) [place] % (Auto) 9.9 H [place] # 1.1 H Eos # Seg Neutrophils % 70.3 H Seg Neutrophils # 8.0 H Seg Neutrophils # Man Monocytes # (Manual) ABG pH POC ABG pO2 ABG pO2 ABG HCO3 ABG O2 Saturation ABG Base Excess ABG Hemoglobin ABG Oxyhemoglobin Oxyhemoglobin Sodium Potassium Chloride BUN Creatinine Glucose POC Glucose 143 H 107 H Lactic Acid Calcium Phosphorus AST ALT Lactate Dehydrogenase CK-MB (CK-2) C-Reactive Protein NT-Pro-B Natriuret Pep Total Protein Albumin Urine WBC (Auto) 12/02/19 12/02/19 12/02/19 05:16 06:03 11:52 WBC Hgb Hct RDW Lymph % (Auto) [place] % (Auto) [place] # Eos # Seg Neutrophils % Seg Neutrophils # Seg Neutrophils # Man Monocytes # (Manual) ABG pH POC ABG pO2 ABG pO2 ABG HCO3 ABG O2 Saturation ABG Base Excess ABG Hemoglobin ABG Oxyhemoglobin Oxyhemoglobin Sodium 146 H Potassium Chloride BUN 28 H Creatinine Glucose 123 H POC Glucose 110 H 152 H Lactic Acid Calcium Phosphorus AST ALT Lactate Dehydrogenase CK-MB (CK-2) C-Reactive Protein NT-Pro-B Natriuret Pep Total Protein Albumin Urine WBC (Auto) 12/02/19 12/02/19 12/02/19 12:58 17:58 23:36 WBC Hgb Hct RDW Lymph % (Auto) [place] % (Auto) [place] # Eos # Seg Neutrophils % Seg Neutrophils # Seg Neutrophils # Man Monocytes # (Manual) ABG pH POC ABG pO2 78.1 L ABG pO2 ABG HCO3 ABG O2 Saturation ABG Base Excess ABG Hemoglobin ABG Oxyhemoglobin Oxyhemoglobin Sodium Potassium Chloride BUN Creatinine Glucose POC Glucose 120 H 123 H Lactic Acid Calcium Phosphorus AST ALT Lactate Dehydrogenase CK-MB (CK-2) C-Reactive Protein NT-Pro-B Natriuret Pep Total Protein Albumin Urine WBC (Auto) 12/03/19 12/03/19 12/03/19 06:03 06:14 11:46 WBC Hgb Hct RDW Lymph % (Auto) [place] % (Auto) [place] # Eos # Seg Neutrophils % Seg Neutrophils # Seg Neutrophils # Man Monocytes # (Manual) ABG pH POC ABG pO2 ABG pO2 ABG HCO3 ABG O2 Saturation ABG Base Excess ABG Hemoglobin ABG Oxyhemoglobin Oxyhemoglobin Sodium Potassium Chloride BUN Creatinine Glucose POC Glucose 142 H 130 H Lactic Acid Calcium Phosphorus AST ALT Lactate Dehydrogenase CK-MB (CK-2) C-Reactive Protein NT-Pro-B Natriuret Pep Total Protein Albumin Urine WBC (Auto) 8.0 H 12/03/19 12/03/19 12/04/19 15:50 17:39 00:04 WBC Hgb Hct RDW Lymph % (Auto) [place] % (Auto) [place] # Eos # Seg Neutrophils % Seg Neutrophils # Seg Neutrophils # Man Monocytes # (Manual) ABG pH POC ABG pO2 ABG pO2 ABG HCO3 ABG O2 Saturation ABG Base Excess ABG Hemoglobin ABG Oxyhemoglobin Oxyhemoglobin Sodium Potassium Chloride BUN Creatinine Glucose POC Glucose 146 H 133 H Lactic Acid Calcium Phosphorus 2.40 L AST ALT Lactate Dehydrogenase CK-MB (CK-2) C-Reactive Protein NT-Pro-B Natriuret Pep Total Protein Albumin Urine WBC (Auto) 12/04/19 12/04/19 12/04/19 03:58 03:58 05:22 WBC 12.5 H Hgb 11.2 L Hct 35.2 L RDW 16.0 H Lymph % (Auto) [place] % (Auto) 9.6 H [place] # 1.2 H Eos # 0.5 H Seg Neutrophils % Seg Neutrophils # 8.6 H Seg Neutrophils # Man Monocytes # (Manual) ABG pH POC ABG pO2 ABG pO2 ABG HCO3 ABG O2 Saturation ABG Base Excess ABG Hemoglobin ABG Oxyhemoglobin Oxyhemoglobin Sodium 146 H Potassium Chloride 108.6 H BUN 30 H Creatinine 0.7 L Glucose 121 H POC Glucose 132 H Lactic Acid Calcium Phosphorus AST ALT Lactate Dehydrogenase CK-MB (CK-2) C-Reactive Protein NT-Pro-B Natriuret Pep Total Protein Albumin Urine WBC (Auto) 12/04/19 12/04/19 12/05/19 13:26 18:43 00:19 WBC Hgb Hct RDW Lymph % (Auto) [place] % (Auto) [place] # Eos # Seg Neutrophils % Seg Neutrophils # Seg Neutrophils # Man Monocytes # (Manual) ABG pH POC ABG pO2 ABG pO2 ABG HCO3 ABG O2 Saturation ABG Base Excess ABG Hemoglobin ABG Oxyhemoglobin Oxyhemoglobin Sodium Potassium Chloride BUN Creatinine Glucose POC Glucose 185 H 156 H 150 H Lactic Acid Calcium Phosphorus AST ALT Lactate Dehydrogenase CK-MB (CK-2) C-Reactive Protein NT-Pro-B Natriuret Pep Total Protein Albumin Urine WBC (Auto) 12/05/19 12/05/19 12/05/19 03:37 03:37 05:14 WBC 16.3 H Hgb 11.4 L Hct RDW 15.6 H Lymph % (Auto) 9.9 L [place] % (Auto) 9.7 H [place] # 1.6 H Eos # Seg Neutrophils % 78.0 H Seg Neutrophils # 12.7 H Seg Neutrophils # Man Monocytes # (Manual) ABG pH POC ABG pO2 ABG pO2 ABG HCO3 ABG O2 Saturation ABG Base Excess ABG Hemoglobin ABG Oxyhemoglobin Oxyhemoglobin Sodium 146 H Potassium Chloride 107.2 H BUN 27 H Creatinine 0.7 L Glucose 171 H POC Glucose 168 H Lactic Acid Calcium Phosphorus AST ALT Lactate Dehydrogenase CK-MB (CK-2) C-Reactive Protein NT-Pro-B Natriuret Pep Total Protein Albumin Urine WBC (Auto) 12/05/19 12/05/19 12/05/19 12:31 18:10 23:58 WBC Hgb Hct RDW Lymph % (Auto) [place] % (Auto) [place] # Eos # Seg Neutrophils % Seg Neutrophils # Seg Neutrophils # Man Monocytes # (Manual) ABG pH POC ABG pO2 ABG pO2 ABG HCO3 ABG O2 Saturation ABG Base Excess ABG Hemoglobin ABG Oxyhemoglobin Oxyhemoglobin Sodium Potassium Chloride BUN Creatinine Glucose POC Glucose 159 H 198 H 115 H Lactic Acid Calcium Phosphorus AST ALT Lactate Dehydrogenase CK-MB (CK-2) C-Reactive Protein NT-Pro-B Natriuret Pep Total Protein Albumin Urine WBC (Auto) 12/06/19 12/06/19 12/06/19 05:24 05:24 05:25 WBC 14.9 H Hgb 10.8 L Hct 34.0 L RDW 15.6 H Lymph % (Auto) 10.7 L [place] % (Auto) 8.3 H [place] # 1.2 H Eos # Seg Neutrophils % 78.7 H Seg Neutrophils # 11.7 H Seg Neutrophils # Man Monocytes # (Manual) ABG pH POC ABG pO2 ABG pO2 ABG HCO3 ABG O2 Saturation ABG Base Excess ABG Hemoglobin ABG Oxyhemoglobin Oxyhemoglobin Sodium 148 H Potassium 5.1 H Chloride 107.6 H BUN 27 H Creatinine 0.7 L Glucose 155 H POC Glucose 157 H Lactic Acid Calcium Phosphorus AST ALT Lactate Dehydrogenase CK-MB (CK-2) C-Reactive Protein NT-Pro-B Natriuret Pep Total Protein Albumin Urine WBC (Auto) 12/07/19 12/07/19 12/07/19 00:13 05:34 11:33 WBC Hgb Hct RDW Lymph % (Auto) [place] % (Auto) [place] # Eos # Seg Neutrophils % Seg Neutrophils # Seg Neutrophils # Man Monocytes # (Manual) ABG pH POC ABG pO2 ABG pO2 ABG HCO3 ABG O2 Saturation ABG Base Excess ABG Hemoglobin ABG Oxyhemoglobin Oxyhemoglobin Sodium Potassium Chloride BUN Creatinine Glucose POC Glucose 142 H 111 H 169 H Lactic Acid Calcium Phosphorus AST ALT Lactate Dehydrogenase CK-MB (CK-2) C-Reactive Protein NT-Pro-B Natriuret Pep Total Protein Albumin Urine WBC (Auto) Chest x-ray: other (none today) Allied health notes reviewed: nursing
[2019-12-07] MEDS: QUEtiapine 25 MG TAB PO SCH (13:29)
[2019-12-07] MEDS: METOPROLOL TARTRATE 50 MG TAB PO SCH ×2 (13:30→21:48)
[2019-12-07 13:41] LABS: Basophils # (Auto) 0.1 K/mm3 (0.0-0.1); Basophils % (Auto) 0.8 % (0.0-1.8); Eosinophils # (Auto) 0.4 K/mm3 (0.0-0.4); Eosinophils % (Auto) 3.2 % (0.0-4.3); Hematocrit 32.1 % (35.5-45.6); Hemoglobin 10.2 gm/dl (11.8-15.2); Lymphocytes # (Auto) 1.3 K/mm3 (1.2-5.4); Lymphocytes % (Auto) 10.6 % (13.4-35.0); Mean Corpuscular HGB Conc 32 % (32-34); Mean Corpuscular Volume 91 fl (84-94); Monocytes % (Auto) 7.8 % (0.0-7.3); Platelet Count 239 K/mm3 (140-440); Red Blood Count 3.53 M/mm3 (3.65-5.03); Red Cell Distribution Width 15.3 % (13.2-15.2)
[2019-12-07 13:55] LABS: Alanine Aminotransferase 145 units/L (7-56); Albumin 2.6 g/dL (3.9-5); BUN/Creatinine Ratio 43; Blood Urea Nitrogen 26 mg/dL (9-20); Calcium 9.9 mg/dL (8.4-10.2); Hemolysis Index 0
[2019-12-07 15:41] LABS: INR 1.13 (0.87-1.13)
[2019-12-07 15:42] LABS: Partial Thromboplastin Time 28.6 Sec. (24.2-36.6)
[2019-12-07] MEDS: HEPARIN/ 0.45% NACL DRIP 25,000 UNIT/500 ML BAG IV SCH (16:14)
[2019-12-07] MEDS: ACETAMINOPHEN 325 MG/10.15 ML ORAL LIQD UNIT DOSE FEEDTUBE PRN (16:41)
--- NOTE | 2019-12-07 19:16 | Event Note ---
Date: 12/07/19 I called patient's spouse Ms. Paulette Araiza at [phone] and discussed in detail patient's condition treatment plan , tests reports and consultants recommendation , and informed her that the senior vice president & general counsel and respiratory therapist are trying to wean the patient off the ventilator. She had many questions answered all of them and encouraged her to call back with any new concerns patient is comfortable.
[2019-12-07] MEDS: QUEtiapine 100 MG TAB PO SCH ×2 (21:49→22:17)
[2019-12-07] MEDS: POLYETHYLENE GLYCOL 3350 17 GM POWDER PO SCH (22:11)
[2019-12-08] MEDS: INSULIN LISPRO 100 UNIT/ML VIAL 3 mL SUB-Q SCH ×4 (00:43→19:27)
[2019-12-08] MEDS: VANCOMYCIN 1,500 MG in SODIUM CHLORIDE 0.9% 500 ML 500 ML IV SCH ×2 (03:01→17:30)
[2019-12-08 05:30] LABS: Basophils # (Auto) 0.1 K/mm3 (0.0-0.1); Basophils % (Auto) 0.9 % (0.0-1.8); Eosinophils # (Auto) 0.4 K/mm3 (0.0-0.4); Eosinophils % (Auto) 3.2 % (0.0-4.3); Hematocrit 30.8 % (35.5-45.6); Hemoglobin 9.7 gm/dl (11.8-15.2); Lymphocytes % (Auto) 14.8 % (13.4-35.0); Mean Corpuscular HGB Conc 31 % (32-34); Mean Corpuscular Volume 91 fl (84-94); Monocytes # (Auto) 1.1 K/mm3 (0.0-0.8); Monocytes % (Auto) 8.1 % (0.0-7.3); Platelet Count 272 K/mm3 (140-440); Red Cell Distribution Width 15.5 % (13.2-15.2)
[2019-12-08 05:47] LABS: Alanine Aminotransferase 145 units/L (7-56); Albumin 2.4 g/dL (3.9-5); Blood Urea Nitrogen 28 mg/dL (9-20); Calcium 9.7 mg/dL (8.4-10.2); Hemolysis Index 0
[2019-12-08 05:48] LABS: BUN/Creatinine Ratio 47; Bilirubin,Direct < 0.2 mg/dL (0-0.2)
[2019-12-08] MEDS: CEFEPIME/NS 2 GM/100 ML 2 GM/100 ML BAG IV SCH ×3 (05:58→21:50)
[2019-12-08] MEDS: METOPROLOL TARTRATE 50 MG TAB PO SCH ×3 (05:59→21:49)
[2019-12-08] MEDS: HEPARIN/ 0.45% NACL DRIP 25,000 UNIT/500 ML BAG IV SCH ×2 (06:00→20:31)
[2019-12-08] MEDS: fentaNYL DRIP Premix 2,000 MCG/100 ML BAG IV SCH ×2 (06:00→20:20)
[2019-12-08] MEDS: QUEtiapine 25 MG TAB PO SCH (09:47)
[2019-12-08] MEDS: FAMOTIDINE 20 MG TAB PO SCH ×2 (09:47→21:48)
[2019-12-08] MEDS: DOCUSATE SODIUM 100 MG/10 ML ORAL LIQD FEEDTUBE SCH ×2 (09:48→21:48)
[2019-12-08] MEDS: AMIODARONE 200 MG TAB PO SCH ×2 (09:48→21:48)
[2019-12-08] MEDS: ACETAMINOPHEN 325 MG/10.15 ML ORAL LIQD UNIT DOSE FEEDTUBE PRN (09:48)
--- NOTE | 2019-12-08 09:52 | Progress Note ---
Assessment and Plan Multifocal pneumonia with intermittent fevers negative COVID-19 test Respiratory failure Transient Afib after CPAP trial currently in sinus rhythm Ischemic Cardiomyopathy, resolving re-echo this presentation reports an LVEF 40-45%. echo 08/2018: decreased LVEF 20-25%. Hx of CAD [facility] 12/2018: mild in-stent restenosis. No significant residual disease. Recommendations: Continue amiodarone and metoprolol for suppression of paroxysmal atrial fibrillation. Anticoagulation currently is with intravenous heparin. Ultimately, when he is stable of the event he will need transition to an oral anti-coagulant. Subjective Date of service: 12/08/19 Principal diagnosis: Ac hypoxemic resp failure; Pneumonia Interval history: Patient remains intubated on mechanical ventilation. Stable sinus rhythm on telemetry. Objective Vital Signs Temp Pulse Pulse Resp BP Pulse Ox 12/08/19 09:35 94 H 120/79 97 12/08/19 09:00 87 22 111/73 96 12/08/19 08:46 85 21 117/73 96 12/08/19 08:30 92 H 22 117/73 99 12/08/19 08:16 84 21 98 12/08/19 08:00 100.0 F H 86 85 14 107/71 100 12/08/19 07:55 86 111/79 97 12/08/19 07:46 81 21 105/71 97 12/08/19 07:30 81 20 107/71 98 12/08/19 07:16 81 20 105/71 97 12/08/19 07:00 83 17 105/71 96 12/08/19 06:46 85 19 113/78 97 12/08/19 06:30 89 20 113/78 96 12/08/19 06:16 90 20 110/76 94 12/08/19 06:00 93 H 19 108/67 98 12/08/19 05:59 96 H 108/67 12/08/19 05:46 93 H 20 108/67 96 12/08/19 05:30 97 H 20 108/67 97 12/08/19 05:16 99 H 20 172/94 94 12/08/19 05:00 103 H 19 108/75 94 12/08/19 04:46 107 H 20 172/94 94 12/08/19 04:30 123 H 25 H 105/70 97 12/08/19 04:16 123 H 26 H 105/70 99 12/08/19 04:06 129 H 122/82 100 12/08/19 04:00 89 99 H 20 122/82 100 12/08/19 03:46 80 15 100/73 97 12/08/19 03:30 82 12 105/70 97 12/08/19 03:16 84 15 101/69 97 12/08/19 03:01 99.4 F 12/08/19 03:00 84 16 100/73 98 12/08/19 02:46 79 16 101/69 98 12/08/19 02:30 79 27 H 101/69 95 12/08/19 02:16 82 24 106/74 96 12/08/19 02:00 83 20 106/74 96 12/08/19 01:46 81 20 103/70 95 12/08/19 01:30 82 21 107/74 94 12/08/19 01:16 82 23 103/70 98 12/08/19 01:00 81 24 103/70 95 12/08/19 00:46 83 20 105/72 97 12/08/19 00:30 81 22 111/71 97 12/08/19 00:16 79 22 105/72 97 12/08/19 00:01 79 105/72 98 12/08/19 00:00 79 110 H 21 105/72 97 12/07/19 23:46 82 21 101/70 98 12/07/19 23:30 77 20 101/70 98 12/07/19 23:24 98.9 F 12/07/19 23:16 78 20 105/67 98 12/07/19 23:00 80 20 105/67 98 12/07/19 22:46 81 20 128/79 96 12/07/19 22:30 86 20 104/71 96 12/07/19 22:18 88 16 109/73 97 12/07/19 22:16 93 H 18 109/73 96 12/07/19 22:14 88 16 109/73 96 12/07/19 22:00 90 21 128/79 98 12/07/19 21:48 95 H 109/73 12/07/19 21:46 107 H 19 109/73 100 12/07/19 21:30 91 H 16 109/73 98 12/07/19 21:16 91 H 20 114/77 99 12/07/19 21:00 96 H 20 114/77 97 12/07/19 20:46 97 H 20 113/74 96 12/07/19 20:30 103 H 20 113/74 96 12/07/19 20:16 111 H 24 138/89 95 12/07/19 20:00 98.6 F 121 H 97 H 26 H 138/89 100 12/07/19 19:46 132 H 27 H 193/154 100 12/07/19 19:30 123 H 24 107/71 98 12/07/19 19:16 85 38 H 107/71 98 12/07/19 19:00 83 20 107/71 98 12/07/19 18:46 81 20 103/68 97 12/07/19 18:38 100 F H 12/07/19 18:30 83 16 103/68 96 12/07/19 18:16 84 18 104/72 98 12/07/19 18:00 84 18 104/72 100 12/07/19 17:46 87 22 107/74 97 12/07/19 17:30 89 22 107/74 96 12/07/19 17:16 91 H 21 112/75 97 12/07/19 17:00 92 H 23 112/75 96 12/07/19 16:55 88 20 111/71 97 12/07/19 16:46 95 H 24 111/71 99 12/07/19 16:30 97 H 16 111/71 98 12/07/19 16:16 87 22 107/75 99 12/07/19 16:00 100.6 F H 88 107 H 24 107/75 98 12/07/19 15:46 92 H 21 87/66 99 12/07/19 15:30 105 H 23 87/66 99 12/07/19 15:16 100 H 23 84/59 97 12/07/19 15:00 87 20 92/62 98 12/07/19 14:46 94 H 18 92/62 98 12/07/19 14:30 95 H 22 92/62 98 12/07/19 14:16 121 H 18 107/71 99 12/07/19 14:00 120 H 18 107/71 98 12/07/19 13:46 121 H 16 109/68 96 12/07/19 13:30 119 H 16 109/68 99 12/07/19 13:16 120 H 22 114/70 98 09/14/20 13:00 113 H 17 114/70 97 12/07/19 12:46 107 H 15 108/65 98 12/07/19 12:30 108 H 20 108/65 96 12/07/19 12:16 122 H 16 112/76 98 12/07/19 12:14 98.2 F 12/07/19 12:00 98.2 F 89 107 H 17 112/76 96 12/07/19 11:46 93 H 20 129/78 99 12/07/19 11:30 99 H 18 129/78 99 12/07/19 11:16 91 H 17 117/72 98 12/07/19 11:14 87 18 117/72 98 12/07/19 11:00 81 19 117/72 99 12/07/19 10:46 83 20 110/74 97 12/07/19 10:30 84 17 120/76 99 12/07/19 10:16 84 22 110/74 98 12/07/19 10:00 80 18 110/74 99 - Physical Examination General: Other (intubated on the vent) Cardiac: Positive: Reg Rate and Rhythm - Labs and Meds Cardiac Enzymes 12/07/19 12/08/19 Range/Units 12:41 03:55 AST 121 H 98 H (5-40) units/L Coagulation 12/07/19 Range/Units 14:51 PT 14.6 (12.2-14.9) Sec. INR 1.13 (0.87-1.13) APTT 28.6 (24.2-36.6) Sec. CBC 12/07/19 12/08/19 Range/Units 13:25 03:55 WBC 12.4 H 13.3 H (4.5-11.0) K/mm3 RBC 3.53 L 3.40 L (3.65-5.03) M/mm3 Hgb 10.2 L 9.7 L (11.8-15.2) gm/dl Hct 32.1 L 30.8 L (35.5-45.6) % Plt Count 239 272 (140-440) K/mm3 Lymph # 1.3 2.0 (1.2-5.4) K/mm3 Brooks # 1.0 H 1.1 H (0.0-0.8) K/mm3 Eos # 0.4 0.4 (0.0-0.4) K/mm3 Baso # 0.1 0.1 (0.0-0.1) K/mm3 Comprehensive Metabolic Panel 12/07/19 12/08/19 Range/Units 12:41 03:55 Sodium 149 H 149 H (137-145) mmol/L Potassium 4.8 4.4 (3.6-5.0) mmol/L Chloride 108.4 H 108.0 H (98-107) mmol/L Carbon Dioxide 30 30 (22-30) mmol/L BUN 26 H 28 H (9-20) mg/dL Creatinine 0.6 L 0.6 L (0.8-1.3) mg/dL Glucose 149 H 144 H (75-100) mg/dL Calcium 9.9 9.7 (8.4-10.2) mg/dL Direct Bilirubin < 0.2 (0-0.2) mg/dL Indirect Bilirubin 0.2 mg/dL AST 121 H 98 H (5-40) units/L ALT 145 H 145 H (7-56) units/L Alkaline Phosphatase 83 82 (35-129) units/L Total Protein 6.4 6.0 L (6.3-8.2) g/dL Albumin 2.6 L 2.4 L (3.9-5) g/dL - Allied health notes Allied health notes reviewed: nursing
--- NOTE | 2019-12-08 10:16 | Progress Note ---
Assessment and Plan Cultures: Blood culture 12/02/2019 negative Blood culture 11/24/2019 negative Urine culture 11/24/2019 negative COVID-19 negative x2 12/04/2019 resp culture: PsA 12/06/2019 blood cultures: No growth today A/P: 64-year-old male past medical history hypertension, COPD, CAD, CHF with reduced ejection fraction admitted with acute hypoxic respiratory failure likely secondary to pneumonia #Sepsis: With persistent fever, unclear etiology possible due to pneumonia. Procalcitonin improving, from 1.5-->0.6. #Acute hypoxemic respiratory failure: Likely secondary to pneumonia, COVID-19 testing negative x 2. Remains intubated #Bilateral pneumonia: COVID-19 negative twice. Procalcitonin elevated, and new fevers. Culture growing Pseudomonas, pansensitive. Repeat chest x-ray with persistent right base opacity. #CHF #COPD Recs: -Called Dr. Chester to consider chest CT due to persistent fever, I will try again later. -Continue cefepime IV for now - day3 -Continue vancomycin with PK consult -Obtain MRSA PCR-pending -Remove Hoffman as possible Patsy Dominique MD [facility] ([facility]) Office [phone] Subjective Date of service: 12/08/19 Principal diagnosis: Ac hypoxemic resp failure; Pneumonia Interval history: Remains intubated, sedated, remains spiking low-grade fever. Objective - Exam Narrative Exam: Constitutional: Sedated intubated Head, Ears, Nose: Normocephalic, atraumatic. External ears, nose normal Oral: ETT in place, OG tube in place Eyes: Conjunctivae/corneas clear. No icterus. No ptosis. Neck: Supple, no meningeal signs Cardiovascular: RRR Respiratory: diminished GI: Soft, non-tender; bowel sounds normal. No peritoneal signs Musculoskeletal: Left hand swelling left arm with swelling Skin: No rash or abscess Hem/Lymphatic: No palpable cervical or supraclavicular nodes. No lymphangitis Psych: Sedated Neurological: Sedated - Constitutional Vitals: Vital Signs Temp Pulse Resp BP Pulse Ox 100.0 F H 94 H 22 120/79 97 12/08/19 08:00 12/08/19 09:35 12/08/19 09:00 12/08/19 09:35 12/08/19 09:35 Temperature -Last 24 Hours Temperature 100.0 F Temperature 99.4 F Temperature 98.9 F Temperature 98.6 F Temperature 100 F Temperature 100.6 F Temperature 98.2 F Temperature 98.2 F - Labs CBC & Chem 7: 12/08/19 03:55 12/08/19 03:55 Labs: Abnormal lab results 12/07/19 12/07/19 12/07/19 Range/Units 11:33 12:41 13:25 WBC 12.4 H (4.5-11.0) K/mm3 RBC 3.53 L (3.65-5.03) M/mm3 Hgb 10.2 L (11.8-15.2) gm/dl Hct 32.1 L (35.5-45.6) % MCHC (32-34) % RDW 15.3 H (13.2-15.2) % Lymph % (Auto) 10.6 L (13.4-35.0) % Latimer % (Auto) 7.8 H (0.0-7.3) % Latimer # 1.0 H (0.0-0.8) K/mm3 Seg Neutrophils % 77.6 H (40.0-70.0) % Seg Neutrophils # 9.6 H (1.8-7.7) K/mm3 Heparin Anti-Xa Level (0.3-0.7) U.I./ml Sodium 149 H (137-145) mmol/L Chloride 108.4 H (98-107) mmol/L BUN 26 H (9-20) mg/dL Creatinine 0.6 L (0.8-1.3) mg/dL Glucose 149 H (75-100) mg/dL POC Glucose 169 H (70-105) Magnesium 2.60 H (1.7-2.3) mg/dL AST 121 H (5-40) units/L ALT 145 H (7-56) units/L Total Protein (6.3-8.2) g/dL Albumin 2.6 L (3.9-5) g/dL 12/07/19 12/07/19 12/08/19 Range/Units 18:19 22:25 00:02 WBC (4.5-11.0) K/mm3 RBC (3.65-5.03) M/mm3 Hgb (11.8-15.2) gm/dl Hct (35.5-45.6) % MCHC (32-34) % RDW (13.2-15.2) % Lymph % (Auto) (13.4-35.0) % Latimer % (Auto) (0.0-7.3) % Latimer # (0.0-0.8) K/mm3 Seg Neutrophils % (40.0-70.0) % Seg Neutrophils # (1.8-7.7) K/mm3 Heparin Anti-Xa Level 0.12 L (0.3-0.7) U.I./ml Sodium (137-145) mmol/L Chloride (98-107) mmol/L BUN (9-20) mg/dL Creatinine (0.8-1.3) mg/dL Glucose (75-100) mg/dL POC Glucose 164 H 151 H (70-105) Magnesium (1.7-2.3) mg/dL AST (5-40) units/L ALT (7-56) units/L Total Protein (6.3-8.2) g/dL Albumin (3.9-5) g/dL 12/08/19 12/08/19 12/08/19 Range/Units 03:55 03:55 05:21 WBC 13.3 H (4.5-11.0) K/mm3 RBC 3.40 L (3.65-5.03) M/mm3 Hgb 9.7 L (11.8-15.2) gm/dl Hct 30.8 L (35.5-45.6) % MCHC 31 L (32-34) % RDW 15.5 H (13.2-15.2) % Lymph % (Auto) (13.4-35.0) % Latimer % (Auto) 8.1 H (0.0-7.3) % Latimer # 1.1 H (0.0-0.8) K/mm3 Seg Neutrophils % 73.0 H (40.0-70.0) % Seg Neutrophils # 9.7 H (1.8-7.7) K/mm3 Heparin Anti-Xa Level (0.3-0.7) U.I./ml Sodium 149 H (137-145) mmol/L Chloride 108.0 H (98-107) mmol/L BUN 28 H (9-20) mg/dL Creatinine 0.6 L (0.8-1.3) mg/dL Glucose 144 H (75-100) mg/dL POC Glucose 143 H (70-105) Magnesium (1.7-2.3) mg/dL AST 98 H (5-40) units/L ALT 145 H (7-56) units/L Total Protein 6.0 L (6.3-8.2) g/dL Albumin 2.4 L (3.9-5) g/dL 12/08/19 Range/Units 06:01 WBC (4.5-11.0) K/mm3 RBC (3.65-5.03) M/mm3 Hgb (11.8-15.2) gm/dl Hct (35.5-45.6) % MCHC (32-34) % RDW (13.2-15.2) % Lymph % (Auto) (13.4-35.0) % Latimer % (Auto) (0.0-7.3) % Latimer # (0.0-0.8) K/mm3 Seg Neutrophils % (40.0-70.0) % Seg Neutrophils # (1.8-7.7) K/mm3 Heparin Anti-Xa Level 0.20 L (0.3-0.7) U.I./ml Sodium (137-145) mmol/L Chloride (98-107) mmol/L BUN (9-20) mg/dL Creatinine (0.8-1.3) mg/dL Glucose (75-100) mg/dL POC Glucose (70-105) Magnesium (1.7-2.3) mg/dL AST (5-40) units/L ALT (7-56) units/L Total Protein (6.3-8.2) g/dL Albumin (3.9-5) g/dL
[2019-12-08] MEDS ORDERED: LIPASE 10,500/PROTEASE 25,000/AMYLASE 43,750 (UNITS) DR CAP FEEDTUBE PRN (12:07)
[2019-12-08] MEDS ORDERED: SIMPLE SYRUP 15 ML FEEDTUBE PRN ×2 (12:07)
[2019-12-08] MEDS ORDERED: SODIUM BICARBONATE 325 MG TAB FEEDTUBE PRN (12:07)
--- NOTE | 2019-12-08 12:24 | Progress Note ---
Assessment and Plan Acute hypoxemic respiratory failure Bilateral pneumonia, community acquired. Person under investigation for COVID-19 infection. Acute congestive heart failure exacerbation. History of cerebrovascular accident. Acute chronic obstructive pulmonary disease exacerbation. Hypertension and hypertensive urgency at presentation. History of arthritis. Leukocytosis. Lactic acidosis. Oropharyngeal dysphagia - Ordered a CTA chest to evaluate for VTE and pulmonary parenchyma better - continue care as below otherwise; - attempted to call yesterday but got voice mail; plan is to wean aggressively over nect 48 hours and give a trial of extubation if meets criteria then - tracheostomy thereafter if fails - now s/p BM; continue bowel regimen - keep peep at 8 cm H2O - continue chest PT to RLL region - continue low dose seroquel - COVID isolation per facility protocol - free water for hypernatremia - continue diuresis while following electrolytes / I's & O's - continue to wean oxygen for O2 sat's > 92% - continue bronchodilators with pulmonary hygiene per RT - VAP bundle addressed (Aspiration precautions, HOB >40) - daily SAT's and SBT assessment as tolerated - continue to wean per pulmonary driven protocols - sedation target is RASS 0 to -1 - continue prn analgesia per CPOT score - follow clinically re: fever curves / trend WBC - Avoid delirium (no benzodiazepines if they can be avoided) - Maintain sleep-wake cycle - enteral nutrition at goal rate as tolerated - continue accucheck's with glycemic control per SSI for target blood glucose goal of 140-180 mg/dL while critically ill; Avoid hypoglycemia - continue VTE prophylaxis with Heparin - continue stress ulcer prophylaxis with Famotidine - continue mobility protocols for pressure ulcer prophylaxis - continue fall precautions - continue wound care management per RN / WCT - Supportive transfusions to keep HgB>7g/dL - CXR's and ABG's prn - Continue to monitor neurologic function - Continue chronic home medications - Continue all supportive care ........ re-evaluate in am & prn CONDITION: CRITICAL PROGNOSIS: GUARDED CODE STATUS: FULL CODE The high probability of a clinically significant, sudden or life threatening deterioration of the [Respiratory, cardiovascular & neurological] system(s) required my full and direct attention, intervention and personal management. The aggregate critical care time was [31] minutes without overlap. Time includes spent on [x] Data Review and interpretation [x] Patient assessment and monitoring of vital signs [x] Documentation [x] Medication orders and management Subjective Date of service: 12/08/19 Principal diagnosis: Ac hypoxemic resp failure; Pneumonia; PUI COVID-19; CHF; COPD; HTN Interval history: Patient is seen today for: Acute hypoxemic respiratory failure; Adan. Pneumonia (CAP); PUI COVID-19 infection; AE-CHF; AE-COPD; H/O CVA; HTN Seen and examined at bedside; 24 hour events reviewed; nursing and respiratory care staff consulted; no adverse overnight events reported to me; resting peacefully in bed; continues to wean tenuously; also FiO2 requirements increased; no emesis or overt aspiration Objective Vital Signs - 12hr 12/08/19 12/08/19 12/08/19 00:30 00:46 01:00 Temperature Pulse Rate 81 83 81 Pulse Rate [ From Monitor] Respiratory 22 20 24 Rate Blood Pressure 111/71 105/72 103/70 O2 Sat by Pulse 97 97 95 Oximetry 12/08/19 12/08/19 12/08/19 01:16 01:30 01:46 Temperature Pulse Rate 82 82 81 Pulse Rate [ From Monitor] Respiratory 23 21 20 Rate Blood Pressure 103/70 107/74 103/70 O2 Sat by Pulse 98 94 95 Oximetry 12/08/19 12/08/19 12/08/19 02:00 02:16 02:30 Temperature Pulse Rate 83 82 79 Pulse Rate [ From Monitor] Respiratory 20 24 27 H Rate Blood Pressure 106/74 106/74 101/69 O2 Sat by Pulse 96 96 95 Oximetry 12/08/19 12/08/19 12/08/19 02:46 03:00 03:01 Temperature 99.4 F Pulse Rate 79 84 Pulse Rate [ From Monitor] Respiratory 16 16 Rate Blood Pressure 101/69 100/73 O2 Sat by Pulse 98 98 Oximetry 12/08/19 12/08/19 12/08/19 03:16 03:30 03:46 Temperature Pulse Rate 84 82 80 Pulse Rate [ From Monitor] Respiratory 15 12 15 Rate Blood Pressure 101/69 105/70 100/73 O2 Sat by Pulse 97 97 97 Oximetry 12/08/19 12/08/19 12/08/19 04:00 04:06 04:16 Temperature Pulse Rate 89 129 H 123 H Pulse Rate [ 99 H From Monitor] Respiratory 20 26 H Rate Blood Pressure 122/82 122/82 105/70 O2 Sat by Pulse 100 100 99 Oximetry 12/08/19 12/08/19 12/08/19 04:30 04:46 05:00 Temperature Pulse Rate 123 H 107 H 103 H Pulse Rate [ From Monitor] Respiratory 25 H 20 19 Rate Blood Pressure 105/70 172/94 108/75 O2 Sat by Pulse 97 94 94 Oximetry 12/08/19 12/08/19 12/08/19 05:16 05:30 05:46 Temperature Pulse Rate 99 H 97 H 93 H Pulse Rate [ From Monitor] Respiratory 20 20 20 Rate Blood Pressure 172/94 108/67 108/67 O2 Sat by Pulse 94 97 96 Oximetry 12/08/19 12/08/19 12/08/19 05:59 06:00 06:16 Temperature Pulse Rate 96 H 93 H 90 Pulse Rate [ From Monitor] Respiratory 19 20 Rate Blood Pressure 108/67 108/67 110/76 O2 Sat by Pulse 98 94 Oximetry 12/08/19 12/08/19 12/08/19 06:30 06:46 07:00 Temperature Pulse Rate 89 85 83 Pulse Rate [ From Monitor] Respiratory 20 19 17 Rate Blood Pressure 113/78 113/78 105/71 O2 Sat by Pulse 96 97 96 Oximetry 12/08/19 12/08/19 12/08/19 07:16 07:30 07:46 Temperature Pulse Rate 81 81 81 Pulse Rate [ From Monitor] Respiratory 20 20 21 Rate Blood Pressure 105/71 107/71 105/71 O2 Sat by Pulse 97 98 97 Oximetry 12/08/19 12/08/19 12/08/19 07:55 08:00 08:16 Temperature 100.0 F H Pulse Rate 86 86 84 Pulse Rate [ 85 From Monitor] Respiratory 14 21 Rate Blood Pressure 111/79 107/71 O2 Sat by Pulse 97 100 98 Oximetry 12/08/19 12/08/19 12/08/19 08:30 08:46 09:00 Temperature Pulse Rate 92 H 85 87 Pulse Rate [ From Monitor] Respiratory 22 21 22 Rate Blood Pressure 117/73 117/73 111/73 O2 Sat by Pulse 99 96 96 Oximetry 12/08/19 12/08/19 12/08/19 09:16 09:30 09:35 Temperature Pulse Rate 90 91 H 94 H Pulse Rate [ From Monitor] Respiratory 20 22 Rate Blood Pressure 111/73 120/79 120/79 O2 Sat by Pulse 99 97 97 Oximetry 12/08/19 12/08/19 12/08/19 09:46 10:00 10:16 Temperature Pulse Rate 93 H 91 H 95 H Pulse Rate [ From Monitor] Respiratory 23 24 21 Rate Blood Pressure 120/79 112/76 112/76 O2 Sat by Pulse 95 97 99 Oximetry 12/08/19 12/08/19 12/08/19 10:30 10:46 11:00 Temperature Pulse Rate 107 H 110 H 99 H Pulse Rate [ From Monitor] Respiratory 25 H 22 23 Rate Blood Pressure 112/76 128/85 118/74 O2 Sat by Pulse 96 94 96 Oximetry 12/08/19 12/08/19 12/08/19 11:16 11:30 11:46 Temperature Pulse Rate 100 H 99 H 99 H Pulse Rate [ From Monitor] Respiratory 24 24 20 Rate Blood Pressure 118/74 115/71 115/71 O2 Sat by Pulse 95 96 97 Oximetry 12/08/19 12:00 Temperature 100.5 F H Pulse Rate 96 H Pulse Rate [ 85 From Monitor] Respiratory 24 Rate Blood Pressure 118/69 O2 Sat by Pulse 97 Oximetry Constitutional: no acute distress, agitated, other (elderly and obese male, norm ocephalic with mildly increased respiratory effort at rest on MVS) Eyes: non-icteric ENT: oropharynx moist, other (ETT 24 cm JASON) Neck: supple, no JVD Effort: very labored Ascultation: Bilateral: diminished breath sounds, rhonchi (scant; improved RLL air entry also) Percussion: Bilateral: not dull Cardiovascular: irregular rhythm Gastrointestinal: normoactive bowel sounds, soft, non-tender, non-distended Integumentary: normal Extremities: no cyanosis, no edema, pulses normal, no ischemia or petechiae Neurologic: non-focal exam (moves all extremities with extreme agitation), pupils equal and round, motor strength normal and, other (sedated lightly) Psychiatric: other (unable to assesds re: AMS) CBC and BMP: 12/17/19 05:30 12/17/19 05:30 ABG, PT/INR, D-dimer: ABG ABG pH 7.439 (7.320-7.450) 12/02/19 12:58 POC ABG pCO2 45.1 mmHg (32.0-48.0) 12/02/19 12:58 ABG pCO2 43.4 mm Hg 11/30/19 04:56 POC ABG pO2 78.1 mmHg (83-108) L 12/02/19 12:58 ABG pO2 56.3 mm Hg (80.0-90.0) L 11/30/19 04:56 POC ABG HCO3 29.9 12/02/19 12:58 ABG O2 Saturation 91.5 % (95.0-99.0) L 11/30/19 04:56 PT/INR, D-dimer PT 14.6 Sec. (12.2-14.9) 12/07/19 14:51 INR 1.13 (0.87-1.13) 12/07/19 14:51 Abnormal lab findings: Abnormal Labs 11/24/19 11/24/19 11/24/19 02:53 02:53 03:45 WBC 14.3 H RBC Hgb Hct MCHC RDW 17.2 H Lymph % (Auto) [place] % (Auto) [place] # Eos # Seg Neutrophils % Seg Neutrophils # Seg Neutrophils # Man 8.3 H Monocytes # (Manual) 0.9 H Heparin Anti-Xa Level ABG pH 7.313 L POC ABG pO2 ABG pO2 102.8 H ABG HCO3 ABG O2 Saturation ABG Base Excess -2.9 L ABG Hemoglobin ABG Oxyhemoglobin Oxyhemoglobin 93.9 L Sodium Potassium Chloride BUN Creatinine Glucose 195 H POC Glucose Lactic Acid Calcium Phosphorus Magnesium AST ALT Lactate Dehydrogenase CK-MB (CK-2) 4.3 H C-Reactive Protein NT-Pro-B Natriuret Pep 1181 H Total Protein Albumin Urine WBC (Auto) 11/24/19 11/24/19 11/24/19 04:53 04:53 10:37 WBC RBC Hgb Hct MCHC RDW Lymph % (Auto) [place] % (Auto) [place] # Eos # Seg Neutrophils % Seg Neutrophils # Seg Neutrophils # Man Monocytes # (Manual) Heparin Anti-Xa Level ABG pH POC ABG pO2 ABG pO2 ABG HCO3 ABG O2 Saturation ABG Base Excess ABG Hemoglobin ABG Oxyhemoglobin Oxyhemoglobin Sodium Potassium Chloride BUN Creatinine Glucose 162 H POC Glucose Lactic Acid 2.40 H* 2.50 H* Calcium Phosphorus Magnesium AST ALT Lactate Dehydrogenase 240 H CK-MB (CK-2) C-Reactive Protein NT-Pro-B Natriuret Pep Total Protein Albumin Urine WBC (Auto) 11/24/19 11/24/19 11/24/19 12:21 14:50 19:54 WBC RBC Hgb Hct MCHC RDW Lymph % (Auto) [place] % (Auto) [place] # Eos # Seg Neutrophils % Seg Neutrophils # Seg Neutrophils # Man Monocytes # (Manual) Heparin Anti-Xa Level ABG pH POC ABG pO2 ABG pO2 ABG HCO3 ABG O2 Saturation ABG Base Excess ABG Hemoglobin ABG Oxyhemoglobin Oxyhemoglobin Sodium Potassium Chloride BUN Creatinine Glucose POC Glucose 145 H 143 H 124 H Lactic Acid Calcium Phosphorus Magnesium AST ALT Lactate Dehydrogenase CK-MB (CK-2) C-Reactive Protein NT-Pro-B Natriuret Pep Total Protein Albumin Urine WBC (Auto) 11/25/19 11/25/19 11/25/19 00:18 03:18 05:11 WBC 13.7 H RBC Hgb Hct MCHC RDW 17.1 H Lymph % (Auto) 10.8 L [place] % (Auto) 8.7 H [place] # 1.2 H Eos # Seg Neutrophils % 80.2 H Seg Neutrophils # 11.0 H Seg Neutrophils # Man Monocytes # (Manual) Heparin Anti-Xa Level ABG pH 7.333 L POC ABG pO2 ABG pO2 61.2 L ABG HCO3 ABG O2 Saturation 90.2 L ABG Base Excess ABG Hemoglobin 13.7 L ABG Oxyhemoglobin Oxyhemoglobin 88.2 L Sodium Potassium Chloride BUN Creatinine Glucose POC Glucose 109 H Lactic Acid Calcium Phosphorus Magnesium AST ALT Lactate Dehydrogenase CK-MB (CK-2) C-Reactive Protein NT-Pro-B Natriuret Pep Total Protein Albumin Urine WBC (Auto) 11/25/19 11/25/19 11/26/19 05:11 11:40 03:12 WBC RBC Hgb Hct MCHC RDW Lymph % (Auto) [place] % (Auto) [place] # Eos # Seg Neutrophils % Seg Neutrophils # Seg Neutrophils # Man Monocytes # (Manual) Heparin Anti-Xa Level ABG pH POC ABG pO2 ABG pO2 155.1 H ABG HCO3 27.8 H ABG O2 Saturation ABG Base Excess ABG Hemoglobin 12.2 L ABG Oxyhemoglobin Oxyhemoglobin Sodium Potassium Chloride BUN 23 H Creatinine Glucose 110 H POC Glucose 108 H Lactic Acid Calcium Phosphorus Magnesium AST ALT Lactate Dehydrogenase CK-MB (CK-2) C-Reactive Protein NT-Pro-B Natriuret Pep Total Protein Albumin Urine WBC (Auto) 11/26/19 11/26/19 11/26/19 06:17 10:43 10:43 WBC 11.4 H RBC Hgb Hct MCHC RDW 17.1 H Lymph % (Auto) [place] % (Auto) [place] # Eos # Seg Neutrophils % Seg Neutrophils # Seg Neutrophils # Man Monocytes # (Manual) Heparin Anti-Xa Level ABG pH POC ABG pO2 ABG pO2 ABG HCO3 ABG O2 Saturation ABG Base Excess ABG Hemoglobin ABG Oxyhemoglobin Oxyhemoglobin Sodium Potassium Chloride BUN 29 H Creatinine Glucose POC Glucose 107 H Lactic Acid Calcium Phosphorus Magnesium AST ALT Lactate Dehydrogenase CK-MB (CK-2) C-Reactive Protein NT-Pro-B Natriuret Pep Total Protein Albumin Urine WBC (Auto) 11/26/19 11/27/19 11/27/19 17:11 01:53 04:11 WBC RBC Hgb Hct MCHC RDW Lymph % (Auto) [place] % (Auto) [place] # Eos # Seg Neutrophils % Seg Neutrophils # Seg Neutrophils # Man Monocytes # (Manual) Heparin Anti-Xa Level ABG pH POC ABG pO2 ABG pO2 ABG HCO3 29.2 H ABG O2 Saturation ABG Base Excess 3.4 H ABG Hemoglobin 13.3 L ABG Oxyhemoglobin Oxyhemoglobin 94.5 L Sodium Potassium Chloride BUN Creatinine Glucose POC Glucose 113 H 108 H Lactic Acid Calcium Phosphorus Magnesium AST ALT Lactate Dehydrogenase CK-MB (CK-2) C-Reactive Protein NT-Pro-B Natriuret Pep Total Protein Albumin Urine WBC (Auto) 11/27/19 11/28/19 11/28/19 05:27 05:00 05:25 WBC RBC Hgb Hct MCHC RDW Lymph % (Auto) [place] % (Auto) [place] # Eos # Seg Neutrophils % Seg Neutrophils # Seg Neutrophils # Man Monocytes # (Manual) Heparin Anti-Xa Level ABG pH POC ABG pO2 68.1 L ABG pO2 ABG HCO3 ABG O2 Saturation ABG Base Excess ABG Hemoglobin ABG Oxyhemoglobin 91.2 L Oxyhemoglobin Sodium Potassium Chloride BUN Creatinine Glucose POC Glucose 111 H 110 H Lactic Acid Calcium Phosphorus Magnesium AST ALT Lactate Dehydrogenase CK-MB (CK-2) C-Reactive Protein NT-Pro-B Natriuret Pep Total Protein Albumin Urine WBC (Auto) 11/28/19 11/28/19 11/28/19 12:08 13:47 13:47 WBC 11.3 H RBC Hgb Hct MCHC RDW 16.1 H Lymph % (Auto) [place] % (Auto) 9.9 H [place] # 1.1 H Eos # Seg Neutrophils % 71.4 H Seg Neutrophils # 8.1 H Seg Neutrophils # Man Monocytes # (Manual) Heparin Anti-Xa Level ABG pH POC ABG pO2 ABG pO2 ABG HCO3 ABG O2 Saturation ABG Base Excess ABG Hemoglobin ABG Oxyhemoglobin Oxyhemoglobin Sodium Potassium Chloride BUN 23 H Creatinine Glucose 123 H POC Glucose 112 H Lactic Acid Calcium Phosphorus Magnesium AST ALT Lactate Dehydrogenase CK-MB (CK-2) C-Reactive Protein NT-Pro-B Natriuret Pep Total Protein Albumin 3.7 L Urine WBC (Auto) 11/28/19 11/29/19 11/29/19 17:26 03:55 17:04 WBC RBC Hgb Hct MCHC RDW Lymph % (Auto) [place] % (Auto) [place] # Eos # Seg Neutrophils % Seg Neutrophils # Seg Neutrophils # Man Monocytes # (Manual) Heparin Anti-Xa Level ABG pH POC ABG pO2 ABG pO2 65.7 L ABG HCO3 28.3 H ABG O2 Saturation 93.9 L ABG Base Excess 3.6 H ABG Hemoglobin 13.3 L ABG Oxyhemoglobin Oxyhemoglobin 91.5 L Sodium Potassium Chloride BUN Creatinine Glucose POC Glucose 123 H 119 H Lactic Acid Calcium Phosphorus Magnesium AST ALT Lactate Dehydrogenase CK-MB (CK-2) C-Reactive Protein NT-Pro-B Natriuret Pep Total Protein Albumin Urine WBC (Auto) 11/30/19 11/30/19 11/30/19 04:17 04:17 04:56 WBC 13.4 H RBC Hgb Hct MCHC RDW 15.6 H Lymph % (Auto) [place] % (Auto) [place] # Eos # Seg Neutrophils % Seg Neutrophils # Seg Neutrophils # Man Monocytes # (Manual) Heparin Anti-Xa Level ABG pH POC ABG pO2 ABG pO2 56.3 L ABG HCO3 29.3 H ABG O2 Saturation 91.5 L ABG Base Excess 4.7 H ABG Hemoglobin 12.1 L ABG Oxyhemoglobin Oxyhemoglobin 89.2 L Sodium 147 H Potassium Chloride BUN 30 H Creatinine Glucose 124 H POC Glucose Lactic Acid Calcium Phosphorus Magnesium AST ALT Lactate Dehydrogenase CK-MB (CK-2) C-Reactive Protein NT-Pro-B Natriuret Pep Total Protein Albumin 3.8 L Urine WBC (Auto) 11/30/19 11/30/19 11/30/19 05:51 11:54 18:17 WBC RBC Hgb Hct MCHC RDW Lymph % (Auto) [place] % (Auto) [place] # Eos # Seg Neutrophils % Seg Neutrophils # Seg Neutrophils # Man Monocytes # (Manual) Heparin Anti-Xa Level ABG pH POC ABG pO2 ABG pO2 ABG HCO3 ABG O2 Saturation ABG Base Excess ABG Hemoglobin ABG Oxyhemoglobin Oxyhemoglobin Sodium Potassium Chloride BUN Creatinine Glucose POC Glucose 127 H 115 H 143 H Lactic Acid Calcium Phosphorus Magnesium AST ALT Lactate Dehydrogenase CK-MB (CK-2) C-Reactive Protein NT-Pro-B Natriuret Pep Total Protein Albumin Urine WBC (Auto) 12/01/19 12/01/19 12/01/19 01:18 05:22 12:16 WBC RBC Hgb Hct MCHC RDW Lymph % (Auto) [place] % (Auto) [place] # Eos # Seg Neutrophils % Seg Neutrophils # Seg Neutrophils # Man Monocytes # (Manual) Heparin Anti-Xa Level ABG pH POC ABG pO2 ABG pO2 ABG HCO3 ABG O2 Saturation ABG Base Excess ABG Hemoglobin ABG Oxyhemoglobin Oxyhemoglobin Sodium Potassium 3.5 L Chloride 107.8 H BUN 37 H Creatinine Glucose 157 H POC Glucose 118 H 148 H Lactic Acid Calcium 8.2 L D Phosphorus Magnesium AST 48 H ALT 60 H Lactate Dehydrogenase 194 H CK-MB (CK-2) C-Reactive Protein 8.50 H NT-Pro-B Natriuret Pep Total Protein 5.5 L Albumin 2.8 L Urine WBC (Auto) 12/01/19 12/02/19 12/02/19 18:04 00:05 05:16 WBC 11.4 H RBC Hgb Hct MCHC RDW 15.9 H Lymph % (Auto) [place] % (Auto) 9.9 H [place] # 1.1 H Eos # Seg Neutrophils % 70.3 H Seg Neutrophils # 8.0 H Seg Neutrophils # Man Monocytes # (Manual) Heparin Anti-Xa Level ABG pH POC ABG pO2 ABG pO2 ABG HCO3 ABG O2 Saturation ABG Base Excess ABG Hemoglobin ABG Oxyhemoglobin Oxyhemoglobin Sodium Potassium Chloride BUN Creatinine Glucose POC Glucose 143 H 107 H Lactic Acid Calcium Phosphorus Magnesium AST ALT Lactate Dehydrogenase CK-MB (CK-2) C-Reactive Protein NT-Pro-B Natriuret Pep Total Protein Albumin Urine WBC (Auto) 12/02/19 12/02/19 12/02/19 05:16 06:03 11:52 WBC RBC Hgb Hct MCHC RDW Lymph % (Auto) [place] % (Auto) [place] # Eos # Seg Neutrophils % Seg Neutrophils # Seg Neutrophils # Man Monocytes # (Manual) Heparin Anti-Xa Level ABG pH POC ABG pO2 ABG pO2 ABG HCO3 ABG O2 Saturation ABG Base Excess ABG Hemoglobin ABG Oxyhemoglobin Oxyhemoglobin Sodium 146 H Potassium Chloride BUN 28 H Creatinine Glucose 123 H POC Glucose 110 H 152 H Lactic Acid Calcium Phosphorus Magnesium AST ALT Lactate Dehydrogenase CK-MB (CK-2) C-Reactive Protein NT-Pro-B Natriuret Pep Total Protein Albumin Urine WBC (Auto) 12/02/19 12/02/19 12/02/19 12:58 17:58 23:36 WBC RBC Hgb Hct MCHC RDW Lymph % (Auto) [place] % (Auto) [place] # Eos # Seg Neutrophils % Seg Neutrophils # Seg Neutrophils # Man Monocytes # (Manual) Heparin Anti-Xa Level ABG pH POC ABG pO2 78.1 L ABG pO2 ABG HCO3 ABG O2 Saturation ABG Base Excess ABG Hemoglobin ABG Oxyhemoglobin Oxyhemoglobin Sodium Potassium Chloride BUN Creatinine Glucose POC Glucose 120 H 123 H Lactic Acid Calcium Phosphorus Magnesium AST ALT Lactate Dehydrogenase CK-MB (CK-2) C-Reactive Protein NT-Pro-B Natriuret Pep Total Protein Albumin Urine WBC (Auto) 12/03/19 12/03/19 12/03/19 06:03 06:14 11:46 WBC RBC Hgb Hct MCHC RDW Lymph % (Auto) [place] % (Auto) [place] # Eos # Seg Neutrophils % Seg Neutrophils # Seg Neutrophils # Man Monocytes # (Manual) Heparin Anti-Xa Level ABG pH POC ABG pO2 ABG pO2 ABG HCO3 ABG O2 Saturation ABG Base Excess ABG Hemoglobin ABG Oxyhemoglobin Oxyhemoglobin Sodium Potassium Chloride BUN Creatinine Glucose POC Glucose 142 H 130 H Lactic Acid Calcium Phosphorus Magnesium AST ALT Lactate Dehydrogenase CK-MB (CK-2) C-Reactive Protein NT-Pro-B Natriuret Pep Total Protein Albumin Urine WBC (Auto) 8.0 H 12/03/19 12/03/19 12/04/19 15:50 17:39 00:04 WBC RBC Hgb Hct MCHC RDW Lymph % (Auto) [place] % (Auto) [place] # Eos # Seg Neutrophils % Seg Neutrophils # Seg Neutrophils # Man Monocytes # (Manual) Heparin Anti-Xa Level ABG pH POC ABG pO2 ABG pO2 ABG HCO3 ABG O2 Saturation ABG Base Excess ABG Hemoglobin ABG Oxyhemoglobin Oxyhemoglobin Sodium Potassium Chloride BUN Creatinine Glucose POC Glucose 146 H 133 H Lactic Acid Calcium Phosphorus 2.40 L Magnesium AST ALT Lactate Dehydrogenase CK-MB (CK-2) C-Reactive Protein NT-Pro-B Natriuret Pep Total Protein Albumin Urine WBC (Auto) 12/04/19 12/04/19 12/04/19 03:58 03:58 05:22 WBC 12.5 H RBC Hgb 11.2 L Hct 35.2 L MCHC RDW 16.0 H Lymph % (Auto) [place] % (Auto) 9.6 H [place] # 1.2 H Eos # 0.5 H Seg Neutrophils % Seg Neutrophils # 8.6 H Seg Neutrophils # Man Monocytes # (Manual) Heparin Anti-Xa Level ABG pH POC ABG pO2 ABG pO2 ABG HCO3 ABG O2 Saturation ABG Base Excess ABG Hemoglobin ABG Oxyhemoglobin Oxyhemoglobin Sodium 146 H Potassium Chloride 108.6 H BUN 30 H Creatinine 0.7 L Glucose 121 H POC Glucose 132 H Lactic Acid Calcium Phosphorus Magnesium AST ALT Lactate Dehydrogenase CK-MB (CK-2) C-Reactive Protein NT-Pro-B Natriuret Pep Total Protein Albumin Urine WBC (Auto) 12/04/19 12/04/19 12/05/19 13:26 18:43 00:19 WBC RBC Hgb Hct MCHC RDW Lymph % (Auto) [place] % (Auto) [place] # Eos # Seg Neutrophils % Seg Neutrophils # Seg Neutrophils # Man Monocytes # (Manual) Heparin Anti-Xa Level ABG pH POC ABG pO2 ABG pO2 ABG HCO3 ABG O2 Saturation ABG Base Excess ABG Hemoglobin ABG Oxyhemoglobin Oxyhemoglobin Sodium Potassium Chloride BUN Creatinine Glucose POC Glucose 185 H 156 H 150 H Lactic Acid Calcium Phosphorus Magnesium AST ALT Lactate Dehydrogenase CK-MB (CK-2) C-Reactive Protein NT-Pro-B Natriuret Pep Total Protein Albumin Urine WBC (Auto) 12/05/19 12/05/19 12/05/19 03:37 03:37 05:14 WBC 16.3 H RBC Hgb 11.4 L Hct MCHC RDW 15.6 H Lymph % (Auto) 9.9 L [place] % (Auto) 9.7 H [place] # 1.6 H Eos # Seg Neutrophils % 78.0 H Seg Neutrophils # 12.7 H Seg Neutrophils # Man Monocytes # (Manual) Heparin Anti-Xa Level ABG pH POC ABG pO2 ABG pO2 ABG HCO3 ABG O2 Saturation ABG Base Excess ABG Hemoglobin ABG Oxyhemoglobin Oxyhemoglobin Sodium 146 H Potassium Chloride 107.2 H BUN 27 H Creatinine 0.7 L Glucose 171 H POC Glucose 168 H Lactic Acid Calcium Phosphorus Magnesium AST ALT Lactate Dehydrogenase CK-MB (CK-2) C-Reactive Protein NT-Pro-B Natriuret Pep Total Protein Albumin Urine WBC (Auto) 12/05/19 12/05/19 12/05/19 12:31 18:10 23:58 WBC RBC Hgb Hct MCHC RDW Lymph % (Auto) [place] % (Auto) [place] # Eos # Seg Neutrophils % Seg Neutrophils # Seg Neutrophils # Man Monocytes # (Manual) Heparin Anti-Xa Level ABG pH POC ABG pO2 ABG pO2 ABG HCO3 ABG O2 Saturation ABG Base Excess ABG Hemoglobin ABG Oxyhemoglobin Oxyhemoglobin Sodium Potassium Chloride BUN Creatinine Glucose POC Glucose 159 H 198 H 115 H Lactic Acid Calcium Phosphorus Magnesium AST ALT Lactate Dehydrogenase CK-MB (CK-2) C-Reactive Protein NT-Pro-B Natriuret Pep Total Protein Albumin Urine WBC (Auto) 12/06/19 12/06/19 12/06/19 05:24 05:24 05:25 WBC 14.9 H RBC Hgb 10.8 L Hct 34.0 L MCHC RDW 15.6 H Lymph % (Auto) 10.7 L [place] % (Auto) 8.3 H [place] # 1.2 H Eos # Seg Neutrophils % 78.7 H Seg Neutrophils # 11.7 H Seg Neutrophils # Man Monocytes # (Manual) Heparin Anti-Xa Level ABG pH POC ABG pO2 ABG pO2 ABG HCO3 ABG O2 Saturation ABG Base Excess ABG Hemoglobin ABG Oxyhemoglobin Oxyhemoglobin Sodium 148 H Potassium 5.1 H Chloride 107.6 H BUN 27 H Creatinine 0.7 L Glucose 155 H POC Glucose 157 H Lactic Acid Calcium Phosphorus Magnesium AST ALT Lactate Dehydrogenase CK-MB (CK-2) C-Reactive Protein NT-Pro-B Natriuret Pep Total Protein Albumin Urine WBC (Auto) 12/07/19 12/07/19 12/07/19 00:13 05:34 11:33 WBC RBC Hgb Hct MCHC RDW Lymph % (Auto) [place] % (Auto) [place] # Eos # Seg Neutrophils % Seg Neutrophils # Seg Neutrophils # Man Monocytes # (Manual) Heparin Anti-Xa Level ABG pH POC ABG pO2 ABG pO2 ABG HCO3 ABG O2 Saturation ABG Base Excess ABG Hemoglobin ABG Oxyhemoglobin Oxyhemoglobin Sodium Potassium Chloride BUN Creatinine Glucose POC Glucose 142 H 111 H 169 H Lactic Acid Calcium Phosphorus Magnesium AST ALT Lactate Dehydrogenase CK-MB (CK-2) C-Reactive Protein NT-Pro-B Natriuret Pep Total Protein Albumin Urine WBC (Auto) 12/07/19 12/07/19 12/07/19 12:41 13:25 18:19 WBC 12.4 H RBC 3.53 L Hgb 10.2 L Hct 32.1 L MCHC RDW 15.3 H Lymph % (Auto) 10.6 L [place] % (Auto) 7.8 H [place] # 1.0 H Eos # Seg Neutrophils % 77.6 H Seg Neutrophils # 9.6 H Seg Neutrophils # Man Monocytes # (Manual) Heparin Anti-Xa Level ABG pH POC ABG pO2 ABG pO2 ABG HCO3 ABG O2 Saturation ABG Base Excess ABG Hemoglobin ABG Oxyhemoglobin Oxyhemoglobin Sodium 149 H Potassium Chloride 108.4 H BUN 26 H Creatinine 0.6 L Glucose 149 H POC Glucose 164 H Lactic Acid Calcium Phosphorus Magnesium 2.60 H AST 121 H ALT 145 H Lactate Dehydrogenase CK-MB (CK-2) C-Reactive Protein NT-Pro-B Natriuret Pep Total Protein Albumin 2.6 L Urine WBC (Auto) 12/07/19 12/08/19 12/08/19 22:25 00:02 03:55 WBC 13.3 H RBC 3.40 L Hgb 9.7 L Hct 30.8 L MCHC 31 L RDW 15.5 H Lymph % (Auto) [place] % (Auto) 8.1 H [place] # 1.1 H Eos # Seg Neutrophils % 73.0 H Seg Neutrophils # 9.7 H Seg Neutrophils # Man Monocytes # (Manual) Heparin Anti-Xa Level 0.12 L ABG pH POC ABG pO2 ABG pO2 ABG HCO3 ABG O2 Saturation ABG Base Excess ABG Hemoglobin ABG Oxyhemoglobin Oxyhemoglobin Sodium Potassium Chloride BUN Creatinine Glucose POC Glucose 151 H Lactic Acid Calcium Phosphorus Magnesium AST ALT Lactate Dehydrogenase CK-MB (CK-2) C-Reactive Protein NT-Pro-B Natriuret Pep Total Protein Albumin Urine WBC (Auto) 12/08/19 12/08/19 12/08/19 03:55 05:21 06:01 WBC RBC Hgb Hct MCHC RDW Lymph % (Auto) [place] % (Auto) [place] # Eos # Seg Neutrophils % Seg Neutrophils # Seg Neutrophils # Man Monocytes # (Manual) Heparin Anti-Xa Level 0.20 L ABG pH POC ABG pO2 ABG pO2 ABG HCO3 ABG O2 Saturation ABG Base Excess ABG Hemoglobin ABG Oxyhemoglobin Oxyhemoglobin Sodium 149 H Potassium Chloride 108.0 H BUN 28 H Creatinine 0.6 L Glucose 144 H POC Glucose 143 H Lactic Acid Calcium Phosphorus Magnesium AST 98 H ALT 145 H Lactate Dehydrogenase CK-MB (CK-2) C-Reactive Protein NT-Pro-B Natriuret Pep Total Protein 6.0 L Albumin 2.4 L Urine WBC (Auto) CT scan - chest: pending Allied health notes reviewed: nursing
--- NOTE | 2019-12-08 13:08 | Progress Note ---
Assessment and Plan -Persistent fevers; secondary to sepsis -Severe sepsis; secondary to bilateral pneumonia, persistent fevers -Acute hypoxemic respiratory failure, on vent unable to wean -Bilateral pneumonia, community acquired, -Aspiration Pneumonia -Sustained SVT, on amiodarone -Acute on chronic systolic congestive heart failure -History of cerebrovascular accident. -Tobacco use disorder -Alcohol abuse with DT -Acute chronic obstructive pulmonary disease exacerbation. -Hypertension and hypertensive urgency at presentation. -History of arthritis. -Leukocytosis with possible sepsis. -Lactic acidosis. -Oropharyngeal dysphagia -S/P Knee surgery -History of peptic Ulcer Surgery -DVT prophylaxis COVID-19 test; 11/24/2019; negative 11/26/2019; negative Plan Continue ventilatory support, Wean as tolerated and extubate., Pulmonary critical care following Completed ceftriaxone and azithromycin for total 5 days per ID ID started cefepime and Vanco Continue anti-failure medications, cardiology following cont Steroids, Continue diuresis Aspiration precautions DVT/GI prophy Heparin/Protonix Plan of care reviewed with the patient's nurse Closely monitor the patient and adjust management as needed The high probability of a clinically significant, sudden or life threatening deterioration of the [Respiratory, cardiovascular & neurological] system(s) required my full and direct attention, intervention and personal management. The aggregate critical care time was [33] minutes without overlap. Time includes spent on [x] Data Review and interpretation [x] Patient assessment and monitoring of vital signs [x] Documentation [x] Medication orders and management Brief History Patient is a 64-year-old male with known history of hypertension, COPD, history of coronary artery disease, CHF with ejection fraction of 20 to 25% in August 2018 presenting to the emergency room via EMS complaining of shortness of breath. Patient was found to be hypoxic and in respiratory distress. Patient was placed on CPAP in route to the hospital. Oxygen saturation was said to be 88%. Started on Solu-Medrol, Lasix and magnesium in ED, patient was also found to be lethargic with an oxygen saturation of about 91% on CPAP. He was subsequently intubated. Work-up in the emergency room including chest x-ray reveals bilateral pneumonia. He had an elevated white count of 14 and also had an elevated BNP. Patient to be admitted to the ICU and placed on empiric IV antibiotics for pneumonia. He will also be tested positive for COVID-19 and placed on isolation precautions. Rmains intubated on ventilatory support, sputum cultures positive for Pseudomonas, ID changed antibiotics to cefepime and Vanco. 11/25: Leukocytosis improving. Continue current management anticipate extubation possible today. 11/26. Still intubated. Failed SBT yesterday. Repeat COVID-19 test is negative. 11/27. CT head ordered for possible neuro status change is negative. More responsive as the day progressed as per RN. Chest xray today shows interval improvement. He is still on antibiotics - will complete regimen today. 11/28: Considering difficult extubation and severe cardiomyopathy, will obtain cardiology consult. Aspiration precautions, tube feeds held, continue antibiotics. 11/29: Still with intermittent fever but improving imaging, continue diuresis. 11/30; Extremely agitated when placed on PSV- SVT, hypertension. Patiet acknowledged that he drinks. IV Ativan given, CIWA protocol initiated. 12 lead ordered showed SVT, one dose of amiodarone ordered. continue to follow up cardiology recommendation 12/01: Patient remains on mechanical ventilation, getting SBT trial. Remains in S VT, started on amiodarone drip by cardiology. 12/02; patient is on mechanical ventilation and on spontaneous breathing trial. Cardiology started the patient on PO amiodarone. Patient is on cefepime. 12/03: patient is on mechanical ventilation. Cardiology started the patient on PO amiodarone for SVT. Patient is on cefepime, no fever overnight. 12/04: Patient is sedated and on mechanical ventilation. Patient had fever yesterday afternoon 102.3, ID changed his cefepime to meropenem. Heart rate is controlled, cardiology is following. Patient has paroxysmal atrial fibrillation and on amiodarone and metoprolol, subcu heparin for anticoagulation and will need oral anticoagulation once stable. 12/05: Sputum cultures positive for Pseudomonas, ID following 12/06; patient is febrile T-max 24 hours 102 F ,ID change antibiotics to cefepime and Vancomycin 12/07: resumed care. Na 149 today, start on 03/26 NS. cont current care Subjective Date of service: 12/08/19 Principal diagnosis: Ac hypoxemic resp failure; Pneumonia; PUI COVID-19; CHF; COPD; HTN Interval history: Patient seen and examined Patient intubated on mechanical ventilation Discussed with RN at the bedside failed SBT today Objective - Exam Narrative Exam: General appearance: Present: well-nourished, other (Intubated), opens eyes to names and follows minor command - EENT Eyes: Present: PERRL, EOM intact. Absent: scleral icterus ENT: clear oral mucosa, dentition normal - Neck Neck: Present: supple, normal ROM - Respiratory Respiratory effort: normal, mechanical ventilation Respiratory: bilateral: rales - Cardiovascular Rhythm: regular Heart Sounds: Present: S1 & S2, tachycardic. Absent: gallop, systolic murmur, diastolic murmur, rub - Extremities Extremities: no ischemia, pulses intact, pulses symmetrical, No edema, Full ROM Peripheral Pulses: within normal limits - Abdominal General gastrointestinal: Present: soft, non-tender, non-distended, normal bowel sounds. Absent: mass - Integumentary Integumentary: Present: clear, warm, dry. Absent: rash - Musculoskeletal Musculoskeletal: no joint swelling - Psychiatric Psychiatric: sedated Neurology: no focal deficits - Constitutional Vitals: Vital Signs - 12hr 12/08/19 12/08/19 12/08/19 01:16 01:30 01:46 Temperature Pulse Rate 82 82 81 Pulse Rate [ From Monitor] Respiratory 23 21 20 Rate Blood Pressure 103/70 107/74 103/70 O2 Sat by Pulse 98 94 95 Oximetry 12/08/19 12/08/19 12/08/19 02:00 02:16 02:30 Temperature Pulse Rate 83 82 79 Pulse Rate [ From Monitor] Respiratory 20 24 27 H Rate Blood Pressure 106/74 106/74 101/69 O2 Sat by Pulse 96 96 95 Oximetry 12/08/19 12/08/19 12/08/19 02:46 03:00 03:01 Temperature 99.4 F Pulse Rate 79 84 Pulse Rate [ From Monitor] Respiratory 16 16 Rate Blood Pressure 101/69 100/73 O2 Sat by Pulse 98 98 Oximetry 12/08/19 12/08/19 12/08/19 03:16 03:30 03:46 Temperature Pulse Rate 84 82 80 Pulse Rate [ From Monitor] Respiratory 15 12 15 Rate Blood Pressure 101/69 105/70 100/73 O2 Sat by Pulse 97 97 97 Oximetry 12/08/19 12/08/19 12/08/19 04:00 04:06 04:16 Temperature Pulse Rate 89 129 H 123 H Pulse Rate [ 99 H From Monitor] Respiratory 20 26 H Rate Blood Pressure 122/82 122/82 105/70 O2 Sat by Pulse 100 100 99 Oximetry 12/08/19 12/08/19 12/08/19 04:30 04:46 05:00 Temperature Pulse Rate 123 H 107 H 103 H Pulse Rate [ From Monitor] Respiratory 25 H 20 19 Rate Blood Pressure 105/70 172/94 108/75 O2 Sat by Pulse 97 94 94 Oximetry 12/08/19 12/08/19 12/08/19 05:16 05:30 05:46 Temperature Pulse Rate 99 H 97 H 93 H Pulse Rate [ From Monitor] Respiratory 20 20 20 Rate Blood Pressure 172/94 108/67 108/67 O2 Sat by Pulse 94 97 96 Oximetry 12/08/19 12/08/19 12/08/19 05:59 06:00 06:16 Temperature Pulse Rate 96 H 93 H 90 Pulse Rate [ From Monitor] Respiratory 19 20 Rate Blood Pressure 108/67 108/67 110/76 O2 Sat by Pulse 98 94 Oximetry 12/08/19 12/08/19 12/08/19 06:30 06:46 07:00 Temperature Pulse Rate 89 85 83 Pulse Rate [ From Monitor] Respiratory 20 19 17 Rate Blood Pressure 113/78 113/78 105/71 O2 Sat by Pulse 96 97 96 Oximetry 12/08/19 12/08/19 12/08/19 07:16 07:30 07:46 Temperature Pulse Rate 81 81 81 Pulse Rate [ From Monitor] Respiratory 20 20 21 Rate Blood Pressure 105/71 107/71 105/71 O2 Sat by Pulse 97 98 97 Oximetry 12/08/19 12/08/19 12/08/19 07:55 08:00 08:16 Temperature 100.0 F H Pulse Rate 86 86 84 Pulse Rate [ 85 From Monitor] Respiratory 14 21 Rate Blood Pressure 111/79 107/71 O2 Sat by Pulse 97 100 98 Oximetry 12/08/19 12/08/19 12/08/19 08:30 08:46 09:00 Temperature Pulse Rate 92 H 85 87 Pulse Rate [ From Monitor] Respiratory 22 21 22 Rate Blood Pressure 117/73 117/73 111/73 O2 Sat by Pulse 99 96 96 Oximetry 12/08/19 12/08/19 12/08/19 09:16 09:30 09:35 Temperature Pulse Rate 90 91 H 94 H Pulse Rate [ From Monitor] Respiratory 20 22 Rate Blood Pressure 111/73 120/79 120/79 O2 Sat by Pulse 99 97 97 Oximetry 12/08/19 12/08/19 12/08/19 09:46 10:00 10:16 Temperature Pulse Rate 93 H 91 H 95 H Pulse Rate [ From Monitor] Respiratory 23 24 21 Rate Blood Pressure 120/79 112/76 112/76 O2 Sat by Pulse 95 97 99 Oximetry 12/08/19 12/08/19 12/08/19 10:30 10:46 11:00 Temperature Pulse Rate 107 H 110 H 99 H Pulse Rate [ From Monitor] Respiratory 25 H 22 23 Rate Blood Pressure 112/76 128/85 118/74 O2 Sat by Pulse 96 94 96 Oximetry 12/08/19 12/08/19 12/08/19 11:16 11:30 11:46 Temperature Pulse Rate 100 H 99 H 99 H Pulse Rate [ From Monitor] Respiratory 24 24 20 Rate Blood Pressure 118/74 115/71 115/71 O2 Sat by Pulse 95 96 97 Oximetry 12/08/19 12:00 Temperature 100.5 F H Pulse Rate 96 H Pulse Rate [ 85 From Monitor] Respiratory 24 Rate Blood Pressure 118/69 O2 Sat by Pulse 97 Oximetry - Labs CBC & Chem 7: 12/09/19 04:03 12/09/19 09:43 Labs: Abnormal lab results 12/07/19 12/07/19 12/07/19 Range/Units 12:41 13:25 18:19 WBC 12.4 H (4.5-11.0) K/mm3 RBC 3.53 L (3.65-5.03) M/mm3 Hgb 10.2 L (11.8-15.2) gm/dl Hct 32.1 L (35.5-45.6) % MCHC (32-34) % RDW 15.3 H (13.2-15.2) % Lymph % (Auto) 10.6 L (13.4-35.0) % [place] % (Auto) 7.8 H (0.0-7.3) % [place] # 1.0 H (0.0-0.8) K/mm3 Seg Neutrophils % 77.6 H (40.0-70.0) % Seg Neutrophils # 9.6 H (1.8-7.7) K/mm3 Heparin Anti-Xa Level (0.3-0.7) U.I./ml Sodium 149 H (137-145) mmol/L Chloride 108.4 H (98-107) mmol/L BUN 26 H (9-20) mg/dL Creatinine 0.6 L (0.8-1.3) mg/dL Glucose 149 H (75-100) mg/dL POC Glucose 164 H (70-105) Magnesium 2.60 H (1.7-2.3) mg/dL AST 121 H (5-40) units/L ALT 145 H (7-56) units/L Total Protein (6.3-8.2) g/dL Albumin 2.6 L (3.9-5) g/dL 12/07/19 12/08/19 12/08/19 Range/Units 22:25 00:02 03:55 WBC 13.3 H (4.5-11.0) K/mm3 RBC 3.40 L (3.65-5.03) M/mm3 Hgb 9.7 L (11.8-15.2) gm/dl Hct 30.8 L (35.5-45.6) % MCHC 31 L (32-34) % RDW 15.5 H (13.2-15.2) % Lymph % (Auto) (13.4-35.0) % [place] % (Auto) 8.1 H (0.0-7.3) % [place] # 1.1 H (0.0-0.8) K/mm3 Seg Neutrophils % 73.0 H (40.0-70.0) % Seg Neutrophils # 9.7 H (1.8-7.7) K/mm3 Heparin Anti-Xa Level 0.12 L (0.3-0.7) U.I./ml Sodium (137-145) mmol/L Chloride (98-107) mmol/L BUN (9-20) mg/dL Creatinine (0.8-1.3) mg/dL Glucose (75-100) mg/dL POC Glucose 151 H (70-105) Magnesium (1.7-2.3) mg/dL AST (5-40) units/L ALT (7-56) units/L Total Protein (6.3-8.2) g/dL Albumin (3.9-5) g/dL 12/08/19 12/08/19 12/08/19 Range/Units 03:55 05:21 06:01 WBC (4.5-11.0) K/mm3 RBC (3.65-5.03) M/mm3 Hgb (11.8-15.2) gm/dl Hct (35.5-45.6) % MCHC (32-34) % RDW (13.2-15.2) % Lymph % (Auto) (13.4-35.0) % [place] % (Auto) (0.0-7.3) % [place] # (0.0-0.8) K/mm3 Seg Neutrophils % (40.0-70.0) % Seg Neutrophils # (1.8-7.7) K/mm3 Heparin Anti-Xa Level 0.20 L (0.3-0.7) U.I./ml Sodium 149 H (137-145) mmol/L Chloride 108.0 H (98-107) mmol/L BUN 28 H (9-20) mg/dL Creatinine 0.6 L (0.8-1.3) mg/dL Glucose 144 H (75-100) mg/dL POC Glucose 143 H (70-105) Magnesium (1.7-2.3) mg/dL AST 98 H (5-40) units/L ALT 145 H (7-56) units/L Total Protein 6.0 L (6.3-8.2) g/dL Albumin 2.4 L (3.9-5) g/dL 12/08/19 Range/Units 12:08 WBC (4.5-11.0) K/mm3 RBC (3.65-5.03) M/mm3 Hgb (11.8-15.2) gm/dl Hct (35.5-45.6) % MCHC (32-34) % RDW (13.2-15.2) % Lymph % (Auto) (13.4-35.0) % [place] % (Auto) (0.0-7.3) % [place] # (0.0-0.8) K/mm3 Seg Neutrophils % (40.0-70.0) % Seg Neutrophils # (1.8-7.7) K/mm3 Heparin Anti-Xa Level (0.3-0.7) U.I./ml Sodium (137-145) mmol/L Chloride (98-107) mmol/L BUN (9-20) mg/dL Creatinine (0.8-1.3) mg/dL Glucose (75-100) mg/dL POC Glucose 172 H (70-105) Magnesium (1.7-2.3) mg/dL AST (5-40) units/L ALT (7-56) units/L Total Protein (6.3-8.2) g/dL Albumin (3.9-5) g/dL HEART Score - HEART Score Troponin: Troponin T < 0.010 ng/mL (0.00-0.029) 11/24/19 02:53
[2019-12-08] MEDS: SODIUM CHLORIDE 0.45% 1000 ML 1,000 ML IV SCH ×2 (13:26→15:09)
[2019-12-08] MEDS: LORazepam 2 MG/ML VIAL IV PRN (19:16)
[2019-12-08] MEDS: QUEtiapine 100 MG TAB PO SCH (21:48)
[2019-12-08] MEDS: POLYETHYLENE GLYCOL 3350 17 GM POWDER PO SCH (21:50)
[2019-12-09] MEDS: INSULIN LISPRO 100 UNIT/ML VIAL 3 mL SUB-Q SCH ×4 (02:42→18:08)
[2019-12-09] MEDS: VANCOMYCIN 1,500 MG in SODIUM CHLORIDE 0.9% 500 ML 500 ML IV SCH ×2 (04:18→15:21)
[2019-12-09 05:15] LABS: Hematocrit 28.9 % (35.5-45.6); Hemoglobin 9.1 gm/dl (11.8-15.2)
[2019-12-09] MEDS: METOPROLOL TARTRATE 50 MG TAB PO SCH ×3 (06:47→22:13)
[2019-12-09] MEDS: CEFEPIME/NS 2 GM/100 ML 2 GM/100 ML BAG IV SCH ×3 (07:25→22:12)
--- NOTE | 2019-12-09 07:54 | Progress Note ---
Assessment and Plan Acute hypoxemic respiratory failure Bilateral pneumonia, community acquired. Acute congestive heart failure exacerbation. History of cerebrovascular accident. Acute chronic obstructive pulmonary disease exacerbation. Hypertension and hypertensive urgency at presentation. History of arthritis. Oropharyngeal dysphagia Stop heparin , has tracheal bleeding with hemoglobin that is slowly trending down Get lower extremity dopplers r/o DVT Antibiotics per ID, MRSA nares swab - continue to monitor renal function, hemodynamics and electrolyte profile - continue to wean oxygen for O2 sats > 90% - continue bronchodilators with pulmonary hygiene per RT - VAP bundle addressed (Aspiration precautions, HOB >40) - continue to wean per pulmonary driven protocols - continue prn analgesia per CPOT score - follow clinically re: fever curves / trend WBC - Avoid delirium (no benzodiazepines if they can be avoided) - Enteral nutrition at goal rate as tolerated - continue accuchecks with glycemic control per SSI for target blood glucose goal of 140-180 mg/dL while critically ill; Avoid hypoglycemia - continue VTE prophylaxis with Heparin - continue stress ulcer prophylaxis with Famotidine - continue mobility protocols for pressure ulcer prophylaxis - continue fall precautions - continue wound care management per RN / WCT - Supportive transfusions as indicated to keep HgB>7g/dL - Continue to monitor neurologic function - Continue chronic home medications as clinically indicated - Continue all supportive care CONDITION: CRITICAL PROGNOSIS: GUARDED CODE STATUS: FULL CODE The high probability of a clinically significant, sudden or life threatening deterioration of the [Respiratory, cardiovascular & neurological] system(s) required my full and direct attention, intervention and personal management. The aggregate critical care time was [33] minutes without overlap. Time includes spent on [x] Data Review and interpretation [x] Patient assessment and monitoring of vital signs [x] Documentation [x] Medication orders and management Subjective Date of service: 12/09/19 Principal diagnosis: Ac hypoxemic resp failure; Pneumonia; PUI COVID-19; CHF; COPD; HTN Interval history: Patient is seen today for: Acute hypoxemic respiratory failure; Adan. Pneumonia (CAP); PUI COVID-19 infection; AE-CHF; AE-COPD; H/O CVA; HTN Seen and examined at bedside; 24 hour events reviewed; nursing and respiratory care staff consulted; no adverse overnight events reported to me; resting peacefully in bed; awake and alert, ETT in place. No asynchrony, Vent 500/12/8/40%. Tolerated 12 hours of PSV 02/27 yesterday On Fentanyl at 1mcg, heparin infusion with bloody tracheal secretions No fevers Objective Vital Signs - 12hr 12/08/19 12/08/19 12/08/19 20:00 20:16 20:30 Temperature 101.6 F H Pulse Rate 90 95 H 92 H Respiratory 22 25 H 24 Rate Blood Pressure 100/68 100/68 106/66 O2 Sat by Pulse 93 94 94 Oximetry 12/08/19 12/08/19 12/08/19 20:46 20:54 21:00 Temperature Pulse Rate 88 87 87 Respiratory 22 22 Rate Blood Pressure 100/68 106/66 101/65 O2 Sat by Pulse 94 96 96 Oximetry 12/08/19 12/08/19 12/08/19 21:16 21:30 21:46 Temperature Pulse Rate 88 86 84 Respiratory 21 20 23 Rate Blood Pressure 106/66 108/69 108/69 O2 Sat by Pulse 95 95 95 Oximetry 12/08/19 12/08/19 12/08/19 22:00 22:16 22:30 Temperature Pulse Rate 88 84 82 Respiratory 14 27 H 22 Rate Blood Pressure 104/67 104/67 102/65 O2 Sat by Pulse 98 95 96 Oximetry 12/08/19 12/08/19 12/08/19 22:46 23:00 23:16 Temperature Pulse Rate 77 77 77 Respiratory 20 20 16 Rate Blood Pressure 104/67 102/67 102/67 O2 Sat by Pulse 95 95 95 Oximetry 12/08/19 12/08/19 12/09/19 23:30 23:46 00:00 Temperature 99.7 F H Pulse Rate 80 78 77 Respiratory 24 23 19 Rate Blood Pressure 95/57 95/57 102/60 O2 Sat by Pulse 93 95 93 Oximetry 12/09/19 12/09/19 12/09/19 00:04 00:13 00:16 Temperature Pulse Rate 78 84 82 Respiratory 20 22 Rate Blood Pressure 102/60 102/60 102/60 O2 Sat by Pulse 95 98 95 Oximetry 12/09/19 12/09/19 12/09/19 00:30 00:46 01:00 Temperature Pulse Rate 81 82 87 Respiratory 18 20 22 Rate Blood Pressure 96/59 96/59 95/68 O2 Sat by Pulse 96 95 89 Oximetry 12/09/19 12/09/19 12/09/19 01:16 01:30 01:46 Temperature Pulse Rate 84 83 81 Respiratory 23 26 H 20 Rate Blood Pressure 95/68 95/68 95/68 O2 Sat by Pulse 99 98 98 Oximetry 12/09/19 12/09/19 12/09/19 02:00 02:16 02:30 Temperature Pulse Rate 89 85 87 Respiratory 22 20 18 Rate Blood Pressure 95/68 95/68 95/68 O2 Sat by Pulse 87 97 99 Oximetry 12/09/19 12/09/19 12/09/19 02:46 03:00 03:16 Temperature Pulse Rate 84 85 82 Respiratory 20 19 21 Rate Blood Pressure 95/68 106/66 106/66 O2 Sat by Pulse 98 95 96 Oximetry 12/09/19 12/09/19 12/09/19 03:30 03:46 04:00 Temperature 99.4 F Pulse Rate 86 85 81 Respiratory 21 22 21 Rate Blood Pressure 106/66 106/66 105/62 O2 Sat by Pulse 97 92 97 Oximetry 12/09/19 12/09/19 12/09/19 04:07 04:16 04:30 Temperature Pulse Rate 84 84 84 Respiratory 24 21 Rate Blood Pressure 105/62 105/62 105/62 O2 Sat by Pulse 100 98 95 Oximetry 12/09/19 12/09/19 12/09/19 04:46 05:00 05:16 Temperature Pulse Rate 80 78 79 Respiratory 20 18 21 Rate Blood Pressure 105/62 100/63 100/63 O2 Sat by Pulse 98 98 97 Oximetry 12/09/19 12/09/19 12/09/19 05:30 05:46 06:00 Temperature Pulse Rate 78 78 78 Respiratory 20 15 13 Rate Blood Pressure 100/63 100/63 100/59 O2 Sat by Pulse 98 95 97 Oximetry 12/09/19 12/09/19 12/09/19 06:16 06:30 06:46 Temperature Pulse Rate 84 79 90 Respiratory 19 21 20 Rate Blood Pressure 100/59 100/59 100/59 O2 Sat by Pulse 97 98 Oximetry 12/09/19 12/09/19 12/09/19 07:00 07:16 07:30 Temperature Pulse Rate 85 77 75 Respiratory 20 19 19 Rate Blood Pressure 109/68 109/68 109/68 O2 Sat by Pulse 99 98 98 Oximetry 12/09/19 07:48 Temperature Pulse Rate 74 Respiratory Rate Blood Pressure 109/68 O2 Sat by Pulse 100 Oximetry Constitutional: no acute distress, agitated, other (elderly and obese male, normocephalic with mildly increased respiratory effort at rest on MVS) Eyes: non-icteric ENT: oropharynx moist, other (ETT 24 cm JASON) Neck: supple, no JVD Effort: very labored Ascultation: Bilateral: clear, diminished breath sounds, rhonchi (scant; improved RLL air entry also) Percussion: Bilateral: not dull Cardiovascular: irregular rhythm Gastrointestinal: normoactive bowel sounds, soft, non-tender, non-distended Integumentary: normal Extremities: no cyanosis, no edema, pulses normal, no ischemia or petechiae Neurologic: non-focal exam (moves all extremities with extreme agitation), pupils equal and round, motor strength normal and, other (sedated lightly) Psychiatric: mood appropriate, affect normal CBC and BMP: 12/10/19 04:14 12/10/19 04:14 ABG, PT/INR, D-dimer: ABG ABG pH 7.439 (7.320-7.450) 12/02/19 12:58 POC ABG pCO2 45.1 mmHg (32.0-48.0) 12/02/19 12:58 ABG pCO2 43.4 mm Hg 11/30/19 04:56 POC ABG pO2 78.1 mmHg (83-108) L 12/02/19 12:58 ABG pO2 56.3 mm Hg (80.0-90.0) L 11/30/19 04:56 POC ABG HCO3 29.9 12/02/19 12:58 ABG O2 Saturation 91.5 % (95.0-99.0) L 11/30/19 04:56 PT/INR, D-dimer PT 14.6 Sec. (12.2-14.9) 12/07/19 14:51 INR 1.13 (0.87-1.13) 12/07/19 14:51 Abnormal lab findings: Abnormal Labs 11/24/19 11/24/19 11/24/19 02:53 02:53 03:45 WBC 14.3 H RBC Hgb Hct MCHC RDW 17.2 H Lymph % (Auto) Kleberg % (Auto) Kleberg # Eos # Seg Neutrophils % Seg Neutrophils # Seg Neutrophils # Man 8.3 H Monocytes # (Manual) 0.9 H Heparin Anti-Xa Level ABG pH 7.313 L POC ABG pO2 ABG pO2 102.8 H ABG HCO3 ABG O2 Saturation ABG Base Excess -2.9 L ABG Hemoglobin ABG Oxyhemoglobin Oxyhemoglobin 93.9 L Sodium Potassium Chloride BUN Creatinine Glucose 195 H POC Glucose Lactic Acid Calcium Phosphorus Magnesium AST ALT Lactate Dehydrogenase CK-MB (CK-2) 4.3 H C-Reactive Protein NT-Pro-B Natriuret Pep 1181 H Total Protein Albumin Urine WBC (Auto) 11/24/19 11/24/19 11/24/19 04:53 04:53 10:37 WBC RBC Hgb Hct MCHC RDW Lymph % (Auto) Kleberg % (Auto) Kleberg # Eos # Seg Neutrophils % Seg Neutrophils # Seg Neutrophils # Man Monocytes # (Manual) Heparin Anti-Xa Level ABG pH POC ABG pO2 ABG pO2 ABG HCO3 ABG O2 Saturation ABG Base Excess ABG Hemoglobin ABG Oxyhemoglobin Oxyhemoglobin Sodium Potassium Chloride BUN Creatinine Glucose 162 H POC Glucose Lactic Acid 2.40 H* 2.50 H* Calcium Phosphorus Magnesium AST ALT Lactate Dehydrogenase 240 H CK-MB (CK-2) C-Reactive Protein NT-Pro-B Natriuret Pep Total Protein Albumin Urine WBC (Auto) 11/24/19 11/24/19 11/24/19 12:21 14:50 19:54 WBC RBC Hgb Hct MCHC RDW Lymph % (Auto) Kleberg % (Auto) Kleberg # Eos # Seg Neutrophils % Seg Neutrophils # Seg Neutrophils # Man Monocytes # (Manual) Heparin Anti-Xa Level ABG pH POC ABG pO2 ABG pO2 ABG HCO3 ABG O2 Saturation ABG Base Excess ABG Hemoglobin ABG Oxyhemoglobin Oxyhemoglobin Sodium Potassium Chloride BUN Creatinine Glucose POC Glucose 145 H 143 H 124 H Lactic Acid Calcium Phosphorus Magnesium AST ALT Lactate Dehydrogenase CK-MB (CK-2) C-Reactive Protein NT-Pro-B Natriuret Pep Total Protein Albumin Urine WBC (Auto) 11/25/19 11/25/19 11/25/19 00:18 03:18 05:11 WBC 13.7 H RBC Hgb Hct MCHC RDW 17.1 H Lymph % (Auto) 10.8 L Kleberg % (Auto) 8.7 H Kleberg # 1.2 H Eos # Seg Neutrophils % 80.2 H Seg Neutrophils # 11.0 H Seg Neutrophils # Man Monocytes # (Manual) Heparin Anti-Xa Level ABG pH 7.333 L POC ABG pO2 ABG pO2 61.2 L ABG HCO3 ABG O2 Saturation 90.2 L ABG Base Excess ABG Hemoglobin 13.7 L ABG Oxyhemoglobin Oxyhemoglobin 88.2 L Sodium Potassium Chloride BUN Creatinine Glucose POC Glucose 109 H Lactic Acid Calcium Phosphorus Magnesium AST ALT Lactate Dehydrogenase CK-MB (CK-2) C-Reactive Protein NT-Pro-B Natriuret Pep Total Protein Albumin Urine WBC (Auto) 11/25/19 11/25/19 11/26/19 05:11 11:40 03:12 WBC RBC Hgb Hct MCHC RDW Lymph % (Auto) Kleberg % (Auto) Kleberg # Eos # Seg Neutrophils % Seg Neutrophils # Seg Neutrophils # Man Monocytes # (Manual) Heparin Anti-Xa Level ABG pH POC ABG pO2 ABG pO2 155.1 H ABG HCO3 27.8 H ABG O2 Saturation ABG Base Excess ABG Hemoglobin 12.2 L ABG Oxyhemoglobin Oxyhemoglobin Sodium Potassium Chloride BUN 23 H Creatinine Glucose 110 H POC Glucose 108 H Lactic Acid Calcium Phosphorus Magnesium AST ALT Lactate Dehydrogenase CK-MB (CK-2) C-Reactive Protein NT-Pro-B Natriuret Pep Total Protein Albumin Urine WBC (Auto) 11/26/19 11/26/19 11/26/19 06:17 10:43 10:43 WBC 11.4 H RBC Hgb Hct MCHC RDW 17.1 H Lymph % (Auto) Kleberg % (Auto) Kleberg # Eos # Seg Neutrophils % Seg Neutrophils # Seg Neutrophils # Man Monocytes # (Manual) Heparin Anti-Xa Level ABG pH POC ABG pO2 ABG pO2 ABG HCO3 ABG O2 Saturation ABG Base Excess ABG Hemoglobin ABG Oxyhemoglobin Oxyhemoglobin Sodium Potassium Chloride BUN 29 H Creatinine Glucose POC Glucose 107 H Lactic Acid Calcium Phosphorus Magnesium AST ALT Lactate Dehydrogenase CK-MB (CK-2) C-Reactive Protein NT-Pro-B Natriuret Pep Total Protein Albumin Urine WBC (Auto) 11/26/19 11/27/19 11/27/19 17:11 01:53 04:11 WBC RBC Hgb Hct MCHC RDW Lymph % (Auto) Kleberg % (Auto) Kleberg # Eos # Seg Neutrophils % Seg Neutrophils # Seg Neutrophils # Man Monocytes # (Manual) Heparin Anti-Xa Level ABG pH POC ABG pO2 ABG pO2 ABG HCO3 29.2 H ABG O2 Saturation ABG Base Excess 3.4 H ABG Hemoglobin 13.3 L ABG Oxyhemoglobin Oxyhemoglobin 94.5 L Sodium Potassium Chloride BUN Creatinine Glucose POC Glucose 113 H 108 H Lactic Acid Calcium Phosphorus Magnesium AST ALT Lactate Dehydrogenase CK-MB (CK-2) C-Reactive Protein NT-Pro-B Natriuret Pep Total Protein Albumin Urine WBC (Auto) 11/27/19 11/28/19 11/28/19 05:27 05:00 05:25 WBC RBC Hgb Hct MCHC RDW Lymph % (Auto) Kleberg % (Auto) Kleberg # Eos # Seg Neutrophils % Seg Neutrophils # Seg Neutrophils # Man Monocytes # (Manual) Heparin Anti-Xa Level ABG pH POC ABG pO2 68.1 L ABG pO2 ABG HCO3 ABG O2 Saturation ABG Base Excess ABG Hemoglobin ABG Oxyhemoglobin 91.2 L Oxyhemoglobin Sodium Potassium Chloride BUN Creatinine Glucose POC Glucose 111 H 110 H Lactic Acid Calcium Phosphorus Magnesium AST ALT Lactate Dehydrogenase CK-MB (CK-2) C-Reactive Protein NT-Pro-B Natriuret Pep Total Protein Albumin Urine WBC (Auto) 11/28/19 11/28/19 11/28/19 12:08 13:47 13:47 WBC 11.3 H RBC Hgb Hct MCHC RDW 16.1 H Lymph % (Auto) Kleberg % (Auto) 9.9 H Kleberg # 1.1 H Eos # Seg Neutrophils % 71.4 H Seg Neutrophils # 8.1 H Seg Neutrophils # Man Monocytes # (Manual) Heparin Anti-Xa Level ABG pH POC ABG pO2 ABG pO2 ABG HCO3 ABG O2 Saturation ABG Base Excess ABG Hemoglobin ABG Oxyhemoglobin Oxyhemoglobin Sodium Potassium Chloride BUN 23 H Creatinine Glucose 123 H POC Glucose 112 H Lactic Acid Calcium Phosphorus Magnesium AST ALT Lactate Dehydrogenase CK-MB (CK-2) C-Reactive Protein NT-Pro-B Natriuret Pep Total Protein Albumin 3.7 L Urine WBC (Auto) 11/28/19 11/29/19 11/29/19 17:26 03:55 17:04 WBC RBC Hgb Hct MCHC RDW Lymph % (Auto) Kleberg % (Auto) Kleberg # Eos # Seg Neutrophils % Seg Neutrophils # Seg Neutrophils # Man Monocytes # (Manual) Heparin Anti-Xa Level ABG pH POC ABG pO2 ABG pO2 65.7 L ABG HCO3 28.3 H ABG O2 Saturation 93.9 L ABG Base Excess 3.6 H ABG Hemoglobin 13.3 L ABG Oxyhemoglobin Oxyhemoglobin 91.5 L Sodium Potassium Chloride BUN Creatinine Glucose POC Glucose 123 H 119 H Lactic Acid Calcium Phosphorus Magnesium AST ALT Lactate Dehydrogenase CK-MB (CK-2) C-Reactive Protein NT-Pro-B Natriuret Pep Total Protein Albumin Urine WBC (Auto) 11/30/19 11/30/19 11/30/19 04:17 04:17 04:56 WBC 13.4 H RBC Hgb Hct MCHC RDW 15.6 H Lymph % (Auto) Kleberg % (Auto) Kleberg # Eos # Seg Neutrophils % Seg Neutrophils # Seg Neutrophils # Man Monocytes # (Manual) Heparin Anti-Xa Level ABG pH POC ABG pO2 ABG pO2 56.3 L ABG HCO3 29.3 H ABG O2 Saturation 91.5 L ABG Base Excess 4.7 H ABG Hemoglobin 12.1 L ABG Oxyhemoglobin Oxyhemoglobin 89.2 L Sodium 147 H Potassium Chloride BUN 30 H Creatinine Glucose 124 H POC Glucose Lactic Acid Calcium Phosphorus Magnesium AST ALT Lactate Dehydrogenase CK-MB (CK-2) C-Reactive Protein NT-Pro-B Natriuret Pep Total Protein Albumin 3.8 L Urine WBC (Auto) 11/30/19 11/30/19 11/30/19 05:51 11:54 18:17 WBC RBC Hgb Hct MCHC RDW Lymph % (Auto) Kleberg % (Auto) Kleberg # Eos # Seg Neutrophils % Seg Neutrophils # Seg Neutrophils # Man Monocytes # (Manual) Heparin Anti-Xa Level ABG pH POC ABG pO2 ABG pO2 ABG HCO3 ABG O2 Saturation ABG Base Excess ABG Hemoglobin ABG Oxyhemoglobin Oxyhemoglobin Sodium Potassium Chloride BUN Creatinine Glucose POC Glucose 127 H 115 H 143 H Lactic Acid Calcium Phosphorus Magnesium AST ALT Lactate Dehydrogenase CK-MB (CK-2) C-Reactive Protein NT-Pro-B Natriuret Pep Total Protein Albumin Urine WBC (Auto) 12/01/19 12/01/19 12/01/19 01:18 05:22 12:16 WBC RBC Hgb Hct MCHC RDW Lymph % (Auto) Kleberg % (Auto) Kleberg # Eos # Seg Neutrophils % Seg Neutrophils # Seg Neutrophils # Man Monocytes # (Manual) Heparin Anti-Xa Level ABG pH POC ABG pO2 ABG pO2 ABG HCO3 ABG O2 Saturation ABG Base Excess ABG Hemoglobin ABG Oxyhemoglobin Oxyhemoglobin Sodium Potassium 3.5 L Chloride 107.8 H BUN 37 H Creatinine Glucose 157 H POC Glucose 118 H 148 H Lactic Acid Calcium 8.2 L D Phosphorus Magnesium AST 48 H ALT 60 H Lactate Dehydrogenase 194 H CK-MB (CK-2) C-Reactive Protein 8.50 H NT-Pro-B Natriuret Pep Total Protein 5.5 L Albumin 2.8 L Urine WBC (Auto) 12/01/19 12/02/19 12/02/19 18:04 00:05 05:16 WBC 11.4 H RBC Hgb Hct MCHC RDW 15.9 H Lymph % (Auto) Kleberg % (Auto) 9.9 H Kleberg # 1.1 H Eos # Seg Neutrophils % 70.3 H Seg Neutrophils # 8.0 H Seg Neutrophils # Man Monocytes # (Manual) Heparin Anti-Xa Level ABG pH POC ABG pO2 ABG pO2 ABG HCO3 ABG O2 Saturation ABG Base Excess ABG Hemoglobin ABG Oxyhemoglobin Oxyhemoglobin Sodium Potassium Chloride BUN Creatinine Glucose POC Glucose 143 H 107 H Lactic Acid Calcium Phosphorus Magnesium AST ALT Lactate Dehydrogenase CK-MB (CK-2) C-Reactive Protein NT-Pro-B Natriuret Pep Total Protein Albumin Urine WBC (Auto) 12/02/19 12/02/19 12/02/19 05:16 06:03 11:52 WBC RBC Hgb Hct MCHC RDW Lymph % (Auto) Kleberg % (Auto) Kleberg # Eos # Seg Neutrophils % Seg Neutrophils # Seg Neutrophils # Man Monocytes # (Manual) Heparin Anti-Xa Level ABG pH POC ABG pO2 ABG pO2 ABG HCO3 ABG O2 Saturation ABG Base Excess ABG Hemoglobin ABG Oxyhemoglobin Oxyhemoglobin Sodium 146 H Potassium Chloride BUN 28 H Creatinine Glucose 123 H POC Glucose 110 H 152 H Lactic Acid Calcium Phosphorus Magnesium AST ALT Lactate Dehydrogenase CK-MB (CK-2) C-Reactive Protein NT-Pro-B Natriuret Pep Total Protein Albumin Urine WBC (Auto) 12/02/19 12/02/19 12/02/19 12:58 17:58 23:36 WBC RBC Hgb Hct MCHC RDW Lymph % (Auto) Kleberg % (Auto) Kleberg # Eos # Seg Neutrophils % Seg Neutrophils # Seg Neutrophils # Man Monocytes # (Manual) Heparin Anti-Xa Level ABG pH POC ABG pO2 78.1 L ABG pO2 ABG HCO3 ABG O2 Saturation ABG Base Excess ABG Hemoglobin ABG Oxyhemoglobin Oxyhemoglobin Sodium Potassium Chloride BUN Creatinine Glucose POC Glucose 120 H 123 H Lactic Acid Calcium Phosphorus Magnesium AST ALT Lactate Dehydrogenase CK-MB (CK-2) C-Reactive Protein NT-Pro-B Natriuret Pep Total Protein Albumin Urine WBC (Auto) 12/03/19 12/03/19 12/03/19 06:03 06:14 11:46 WBC RBC Hgb Hct MCHC RDW Lymph % (Auto) Kleberg % (Auto) Kleberg # Eos # Seg Neutrophils % Seg Neutrophils # Seg Neutrophils # Man Monocytes # (Manual) Heparin Anti-Xa Level ABG pH POC ABG pO2 ABG pO2 ABG HCO3 ABG O2 Saturation ABG Base Excess ABG Hemoglobin ABG Oxyhemoglobin Oxyhemoglobin Sodium Potassium Chloride BUN Creatinine Glucose POC Glucose 142 H 130 H Lactic Acid Calcium Phosphorus Magnesium AST ALT Lactate Dehydrogenase CK-MB (CK-2) C-Reactive Protein NT-Pro-B Natriuret Pep Total Protein Albumin Urine WBC (Auto) 8.0 H 12/03/19 12/03/19 12/04/19 15:50 17:39 00:04 WBC RBC Hgb Hct MCHC RDW Lymph % (Auto) Kleberg % (Auto) Kleberg # Eos # Seg Neutrophils % Seg Neutrophils # Seg Neutrophils # Man Monocytes # (Manual) Heparin Anti-Xa Level ABG pH POC ABG pO2 ABG pO2 ABG HCO3 ABG O2 Saturation ABG Base Excess ABG Hemoglobin ABG Oxyhemoglobin Oxyhemoglobin Sodium Potassium Chloride BUN Creatinine Glucose POC Glucose 146 H 133 H Lactic Acid Calcium Phosphorus 2.40 L Magnesium AST ALT Lactate Dehydrogenase CK-MB (CK-2) C-Reactive Protein NT-Pro-B Natriuret Pep Total Protein Albumin Urine WBC (Auto) 12/04/19 12/04/19 12/04/19 03:58 03:58 05:22 WBC 12.5 H RBC Hgb 11.2 L Hct 35.2 L MCHC RDW 16.0 H Lymph % (Auto) Kleberg % (Auto) 9.6 H Kleberg # 1.2 H Eos # 0.5 H Seg Neutrophils % Seg Neutrophils # 8.6 H Seg Neutrophils # Man Monocytes # (Manual) Heparin Anti-Xa Level ABG pH POC ABG pO2 ABG pO2 ABG HCO3 ABG O2 Saturation ABG Base Excess ABG Hemoglobin ABG Oxyhemoglobin Oxyhemoglobin Sodium 146 H Potassium Chloride 108.6 H BUN 30 H Creatinine 0.7 L Glucose 121 H POC Glucose 132 H Lactic Acid Calcium Phosphorus Magnesium AST ALT Lactate Dehydrogenase CK-MB (CK-2) C-Reactive Protein NT-Pro-B Natriuret Pep Total Protein Albumin Urine WBC (Auto) 12/04/19 12/04/19 12/05/19 13:26 18:43 00:19 WBC RBC Hgb Hct MCHC RDW Lymph % (Auto) Kleberg % (Auto) Kleberg # Eos # Seg Neutrophils % Seg Neutrophils # Seg Neutrophils # Man Monocytes # (Manual) Heparin Anti-Xa Level ABG pH POC ABG pO2 ABG pO2 ABG HCO3 ABG O2 Saturation ABG Base Excess ABG Hemoglobin ABG Oxyhemoglobin Oxyhemoglobin Sodium Potassium Chloride BUN Creatinine Glucose POC Glucose 185 H 156 H 150 H Lactic Acid Calcium Phosphorus Magnesium AST ALT Lactate Dehydrogenase CK-MB (CK-2) C-Reactive Protein NT-Pro-B Natriuret Pep Total Protein Albumin Urine WBC (Auto) 12/05/19 12/05/19 12/05/19 03:37 03:37 05:14 WBC 16.3 H RBC Hgb 11.4 L Hct MCHC RDW 15.6 H Lymph % (Auto) 9.9 L Kleberg % (Auto) 9.7 H Kleberg # 1.6 H Eos # Seg Neutrophils % 78.0 H Seg Neutrophils # 12.7 H Seg Neutrophils # Man Monocytes # (Manual) Heparin Anti-Xa Level ABG pH POC ABG pO2 ABG pO2 ABG HCO3 ABG O2 Saturation ABG Base Excess ABG Hemoglobin ABG Oxyhemoglobin Oxyhemoglobin Sodium 146 H Potassium Chloride 107.2 H BUN 27 H Creatinine 0.7 L Glucose 171 H POC Glucose 168 H Lactic Acid Calcium Phosphorus Magnesium AST ALT Lactate Dehydrogenase CK-MB (CK-2) C-Reactive Protein NT-Pro-B Natriuret Pep Total Protein Albumin Urine WBC (Auto) 12/05/19 12/05/19 12/05/19 12:31 18:10 23:58 WBC RBC Hgb Hct MCHC RDW Lymph % (Auto) Kleberg % (Auto) Kleberg # Eos # Seg Neutrophils % Seg Neutrophils # Seg Neutrophils # Man Monocytes # (Manual) Heparin Anti-Xa Level ABG pH POC ABG pO2 ABG pO2 ABG HCO3 ABG O2 Saturation ABG Base Excess ABG Hemoglobin ABG Oxyhemoglobin Oxyhemoglobin Sodium Potassium Chloride BUN Creatinine Glucose POC Glucose 159 H 198 H 115 H Lactic Acid Calcium Phosphorus Magnesium AST ALT Lactate Dehydrogenase CK-MB (CK-2) C-Reactive Protein NT-Pro-B Natriuret Pep Total Protein Albumin Urine WBC (Auto) 12/06/19 12/06/19 12/06/19 05:24 05:24 05:25 WBC 14.9 H RBC Hgb 10.8 L Hct 34.0 L MCHC RDW 15.6 H Lymph % (Auto) 10.7 L Kleberg % (Auto) 8.3 H Kleberg # 1.2 H Eos # Seg Neutrophils % 78.7 H Seg Neutrophils # 11.7 H Seg Neutrophils # Man Monocytes # (Manual) Heparin Anti-Xa Level ABG pH POC ABG pO2 ABG pO2 ABG HCO3 ABG O2 Saturation ABG Base Excess ABG Hemoglobin ABG Oxyhemoglobin Oxyhemoglobin Sodium 148 H Potassium 5.1 H Chloride 107.6 H BUN 27 H Creatinine 0.7 L Glucose 155 H POC Glucose 157 H Lactic Acid Calcium Phosphorus Magnesium AST ALT Lactate Dehydrogenase CK-MB (CK-2) C-Reactive Protein NT-Pro-B Natriuret Pep Total Protein Albumin Urine WBC (Auto) 12/07/19 12/07/19 12/07/19 00:13 05:34 11:33 WBC RBC Hgb Hct MCHC RDW Lymph % (Auto) Kleberg % (Auto) Kleberg # Eos # Seg Neutrophils % Seg Neutrophils # Seg Neutrophils # Man Monocytes # (Manual) Heparin Anti-Xa Level ABG pH POC ABG pO2 ABG pO2 ABG HCO3 ABG O2 Saturation ABG Base Excess ABG Hemoglobin ABG Oxyhemoglobin Oxyhemoglobin Sodium Potassium Chloride BUN Creatinine Glucose POC Glucose 142 H 111 H 169 H Lactic Acid Calcium Phosphorus Magnesium AST ALT Lactate Dehydrogenase CK-MB (CK-2) C-Reactive Protein NT-Pro-B Natriuret Pep Total Protein Albumin Urine WBC (Auto) 12/07/19 12/07/19 12/07/19 12:41 13:25 18:19 WBC 12.4 H RBC 3.53 L Hgb 10.2 L Hct 32.1 L MCHC RDW 15.3 H Lymph % (Auto) 10.6 L Kleberg % (Auto) 7.8 H Kleberg # 1.0 H Eos # Seg Neutrophils % 77.6 H Seg Neutrophils # 9.6 H Seg Neutrophils # Man Monocytes # (Manual) Heparin Anti-Xa Level ABG pH POC ABG pO2 ABG pO2 ABG HCO3 ABG O2 Saturation ABG Base Excess ABG Hemoglobin ABG Oxyhemoglobin Oxyhemoglobin Sodium 149 H Potassium Chloride 108.4 H BUN 26 H Creatinine 0.6 L Glucose 149 H POC Glucose 164 H Lactic Acid Calcium Phosphorus Magnesium 2.60 H AST 121 H ALT 145 H Lactate Dehydrogenase CK-MB (CK-2) C-Reactive Protein NT-Pro-B Natriuret Pep Total Protein Albumin 2.6 L Urine WBC (Auto) 12/07/19 12/08/19 12/08/19 22:25 00:02 03:55 WBC 13.3 H RBC 3.40 L Hgb 9.7 L Hct 30.8 L MCHC 31 L RDW 15.5 H Lymph % (Auto) Kleberg % (Auto) 8.1 H Kleberg # 1.1 H Eos # Seg Neutrophils % 73.0 H Seg Neutrophils # 9.7 H Seg Neutrophils # Man Monocytes # (Manual) Heparin Anti-Xa Level 0.12 L ABG pH POC ABG pO2 ABG pO2 ABG HCO3 ABG O2 Saturation ABG Base Excess ABG Hemoglobin ABG Oxyhemoglobin Oxyhemoglobin Sodium Potassium Chloride BUN Creatinine Glucose POC Glucose 151 H Lactic Acid Calcium Phosphorus Magnesium AST ALT Lactate Dehydrogenase CK-MB (CK-2) C-Reactive Protein NT-Pro-B Natriuret Pep Total Protein Albumin Urine WBC (Auto) 12/08/19 12/08/19 12/08/19 03:55 05:21 06:01 WBC RBC Hgb Hct MCHC RDW Lymph % (Auto) Kleberg % (Auto) Kleberg # Eos # Seg Neutrophils % Seg Neutrophils # Seg Neutrophils # Man Monocytes # (Manual) Heparin Anti-Xa Level 0.20 L ABG pH POC ABG pO2 ABG pO2 ABG HCO3 ABG O2 Saturation ABG Base Excess ABG Hemoglobin ABG Oxyhemoglobin Oxyhemoglobin Sodium 149 H Potassium Chloride 108.0 H BUN 28 H Creatinine 0.6 L Glucose 144 H POC Glucose 143 H Lactic Acid Calcium Phosphorus Magnesium AST 98 H ALT 145 H Lactate Dehydrogenase CK-MB (CK-2) C-Reactive Protein NT-Pro-B Natriuret Pep Total Protein 6.0 L Albumin 2.4 L Urine WBC (Auto) 12/08/19 12/08/19 12/08/19 12:08 18:11 23:53 WBC RBC Hgb Hct MCHC RDW Lymph % (Auto) Kleberg % (Auto) Kleberg # Eos # Seg Neutrophils % Seg Neutrophils # Seg Neutrophils # Man Monocytes # (Manual) Heparin Anti-Xa Level ABG pH POC ABG pO2 ABG pO2 ABG HCO3 ABG O2 Saturation ABG Base Excess ABG Hemoglobin ABG Oxyhemoglobin Oxyhemoglobin Sodium Potassium Chloride BUN Creatinine Glucose POC Glucose 172 H 122 H 162 H Lactic Acid Calcium Phosphorus Magnesium AST ALT Lactate Dehydrogenase CK-MB (CK-2) C-Reactive Protein NT-Pro-B Natriuret Pep Total Protein Albumin Urine WBC (Auto) 12/09/19 12/09/19 12/09/19 04:03 04:03 05:53 WBC RBC Hgb 9.1 L Hct 28.9 L MCHC RDW Lymph % (Auto) Kleberg % (Auto) Kleberg # Eos # Seg Neutrophils % Seg Neutrophils # Seg Neutrophils # Man Monocytes # (Manual) Heparin Anti-Xa Level 0.15 L ABG pH POC ABG pO2 ABG pO2 ABG HCO3 ABG O2 Saturation ABG Base Excess ABG Hemoglobin ABG Oxyhemoglobin Oxyhemoglobin Sodium Potassium Chloride BUN Creatinine Glucose POC Glucose 124 H Lactic Acid Calcium Phosphorus Magnesium AST ALT Lactate Dehydrogenase CK-MB (CK-2) C-Reactive Protein NT-Pro-B Natriuret Pep Total Protein Albumin Urine WBC (Auto) Allied health notes reviewed: nursing
[2019-12-09] MEDS: HEPARIN/ 0.45% NACL DRIP 25,000 UNIT/500 ML BAG IV SCH (08:37)
[2019-12-09] MEDS: DOCUSATE SODIUM 100 MG/10 ML ORAL LIQD FEEDTUBE SCH ×2 (09:13→22:16)
[2019-12-09] MEDS: FAMOTIDINE 20 MG TAB PO SCH ×2 (09:13→22:13)
[2019-12-09] MEDS: QUEtiapine 25 MG TAB PO SCH (09:13)
[2019-12-09] MEDS: AMIODARONE 200 MG TAB PO SCH ×2 (09:13→22:16)
[2019-12-09] MEDS: fentaNYL DRIP Premix 2,000 MCG/100 ML BAG IV SCH ×2 (09:14→23:20)
--- NOTE | 2019-12-09 09:21 | Progress Note ---
Assessment and Plan Cultures: Blood culture 12/02/2019 negative Blood culture 11/24/2019 negative Urine culture 11/24/2019 negative COVID-19 negative x2 12/04/2019 resp culture: PsA 12/06/2019 blood cultures: No growth today A/P: 64-year-old male past medical history hypertension, COPD, CAD, CHF with reduced ejection fraction admitted with acute hypoxic respiratory failure likely secondary to pneumonia #Sepsis: With persistent fever 101.6, unclear etiology possible due to pneumonia. Procalcitonin improving, from 1.5-->0.6. #Acute hypoxemic respiratory failure: Likely secondary to pneumonia, COVID-19 testing negative x 2. Remains intubated, on CPAP trial #Bilateral pneumonia: COVID-19 negative twice. Procalcitonin elevated, and new fevers. Culture growing Pseudomonas, pansensitive. Repeat chest x-ray with persistent right base opacity. #CHF: per primary team #COPD: per pulmonary #Elevated LFTs: worsening ? sepsis ?cholecystitis Recs: -chest CT ordered per Dr Chester- pending, suspect non resolving pneumonia/PE -Obtain RUQ US eval for cholecystitis -Continue cefepime IV for now - day 4 -Continue vancomycin with PK consult - day 3 -Obtain MRSA PCR-pending, reordered Patsy Dominique MD [facility] ([facility]) Office [phone] Subjective Date of service: 12/09/19 Principal diagnosis: Ac hypoxemic resp failure; Pneumonia; PUI COVID-19; CHF; COPD; HTN Interval history: Remains intubated, sedated, remains spiking fever 101.6, per nursing staff - became very agitated, labored breathing, desat in 80s heart rate in 150 overnight Objective - Exam Narrative Exam: Constitutional: Sedated intubated Head, Ears, Nose: Normocephalic, atraumatic. External ears, nose normal Oral: ETT in place, OG tube in place Eyes: Conjunctivae/corneas clear. No icterus. No ptosis. Neck: Supple, no meningeal signs Cardiovascular: RRR Respiratory: diminished GI: Soft, non-tender; bowel sounds normal. No peritoneal signs Musculoskeletal: Left hand swelling left arm with swelling Skin: No rash or abscess Hem/Lymphatic: No palpable cervical or supraclavicular nodes. No lymphangitis Psych: Sedated Neurological: Sedated - Constitutional Vitals: Vital Signs Temp Pulse Resp BP Pulse Ox 99.5 F 74 22 103/68 94 12/09/19 08:00 12/09/19 09:00 12/09/19 09:00 12/09/19 09:00 12/09/19 09:00 Temperature -Last 24 Hours Temperature 99.5 F Temperature 99.4 F Temperature 99.7 F Temperature 101.6 F Temperature 98.8 F Temperature 100.5 F - Labs CBC & Chem 7: 12/09/19 04:03 12/09/19 09:43 Labs: Abnormal lab results 12/08/19 12/08/19 12/08/19 Range/Units 12:08 18:11 23:53 Hgb (11.8-15.2) gm/dl Hct (35.5-45.6) % Heparin Anti-Xa Level (0.3-0.7) U.I./ml POC Glucose 172 H 122 H 162 H (70-105) 12/09/19 12/09/19 12/09/19 Range/Units 04:03 04:03 05:53 Hgb 9.1 L (11.8-15.2) gm/dl Hct 28.9 L (35.5-45.6) % Heparin Anti-Xa Level 0.15 L (0.3-0.7) U.I./ml POC Glucose 124 H (70-105)
--- NOTE | 2019-12-09 10:31 | Progress Note ---
Assessment and Plan Multifocal pneumonia with intermittent fevers negative COVID-19 test Respiratory failure Transient Afib after CPAP trial currently in sinus rhythm Ischemic Cardiomyopathy, resolving re-echo this presentation reports an LVEF 40-45%. echo 08/2018: decreased LVEF 20-25%. Hx of CAD [facility] 12/2018: mild in-stent restenosis. No significant residual disease. Recommendations: Continue amiodarone and metoprolol for suppression of paroxysmal atrial fibrillation. Anticoagulation currently is with intravenous heparin. Monitor H&H closely. Conservative cardiac management. Subjective Date of service: 12/09/19 Principal diagnosis: Ac hypoxemic resp failure; Pneumonia; PUI COVID-19; CHF; COPD; HTN Interval history: No cardiac events reported overnight. IV heparin drip continues. Labs shows HCT is trending downwards. Stable sinus rhythm on telemetry. Objective Vital Signs Temp Pulse Pulse Resp BP Pulse Ox 12/09/19 10:00 78 21 109/68 98 12/09/19 09:46 77 13 103/68 99 12/09/19 09:30 75 20 103/68 97 12/09/19 09:18 77 19 103/68 97 12/09/19 09:16 82 17 103/68 100 12/09/19 09:00 74 22 103/68 94 12/09/19 08:46 72 19 102/65 97 12/09/19 08:30 73 20 102/65 98 12/09/19 08:16 73 20 102/65 98 12/09/19 08:00 99.5 F 74 19 102/65 98 12/09/19 07:48 74 109/68 100 12/09/19 07:46 74 21 109/68 98 12/09/19 07:30 75 19 109/68 98 12/09/19 07:16 77 19 109/68 98 12/09/19 07:00 85 20 109/68 99 12/09/19 06:46 90 20 100/59 98 12/09/19 06:30 79 21 100/59 97 12/09/19 06:16 84 19 100/59 12/09/19 06:00 78 13 100/59 97 12/09/19 05:46 78 15 100/63 95 12/09/19 05:30 78 20 100/63 98 12/09/19 05:16 79 21 100/63 97 12/09/19 05:00 78 18 100/63 98 12/09/19 04:46 80 20 105/62 98 12/09/19 04:30 84 21 105/62 95 12/09/19 04:16 84 24 105/62 98 12/09/19 04:07 84 105/62 100 12/09/19 04:00 99.4 F 81 21 105/62 97 12/09/19 03:46 85 22 106/66 92 12/09/19 03:30 86 21 106/66 97 12/09/19 03:16 82 21 106/66 96 12/09/19 03:00 85 19 106/66 95 12/09/19 02:46 84 20 95/68 98 12/09/19 02:30 87 18 95/68 99 12/09/19 02:16 85 20 95/68 97 12/09/19 02:00 89 22 95/68 87 12/09/19 01:46 81 20 95/68 98 12/09/19 01:30 83 26 H 95/68 98 12/09/19 01:16 84 23 95/68 99 12/09/19 01:00 87 22 95/68 89 12/09/19 00:46 82 20 96/59 95 12/09/19 00:30 81 18 96/59 96 12/09/19 00:16 82 22 102/60 95 12/09/19 00:13 84 102/60 98 12/09/19 00:04 78 20 102/60 95 12/09/19 00:00 99.7 F H 77 19 102/60 93 12/08/19 23:46 78 23 95/57 95 12/08/19 23:30 80 24 95/57 93 12/08/19 23:16 77 16 102/67 95 12/08/19 23:00 77 20 102/67 95 12/08/19 22:46 77 20 104/67 95 12/08/19 22:30 82 22 102/65 96 12/08/19 22:16 84 27 H 104/67 95 12/08/19 22:00 88 14 104/67 98 12/08/19 21:46 84 23 108/69 95 12/08/19 21:30 86 20 108/69 95 12/08/19 21:16 88 21 106/66 95 12/08/19 21:00 87 22 101/65 96 09/15/20 20:54 87 106/66 96 12/08/19 20:46 88 22 100/68 94 12/08/19 20:30 92 H 24 106/66 94 12/08/19 20:16 95 H 25 H 100/68 94 12/08/19 20:00 101.6 F H 90 22 100/68 93 12/08/19 19:46 107 H 20 113/78 94 12/08/19 19:30 119 H 24 113/78 95 12/08/19 19:16 147 H 31 H 119/94 95 12/08/19 19:00 146 H 28 H 119/74 91 12/08/19 18:46 122 H 28 H 119/74 93 12/08/19 18:33 108 H 127/99 98 12/08/19 18:30 123 H 31 H 119/74 95 12/08/19 18:15 123 H 27 H 119/74 96 12/08/19 18:00 89 22 119/74 99 12/08/19 17:46 89 21 112/76 99 12/08/19 17:30 86 23 112/76 98 12/08/19 17:16 81 15 108/71 99 12/08/19 17:00 80 21 108/71 98 12/08/19 16:46 79 19 106/68 98 12/08/19 16:30 80 18 104/73 98 12/08/19 16:16 77 11 L 106/68 98 12/08/19 16:05 80 104/73 98 12/08/19 16:00 98.8 F 77 94 H 22 106/68 98 12/08/19 15:46 75 17 106/66 98 12/08/19 15:30 76 19 106/66 98 12/08/19 15:16 76 12 102/62 97 12/08/19 15:00 75 23 102/62 98 12/08/19 14:46 74 23 112/72 98 12/08/19 14:30 76 13 101/66 98 12/08/19 14:16 81 16 112/72 98 12/08/19 14:00 87 20 112/72 97 12/08/19 13:46 89 13 109/79 98 12/08/19 13:30 93 H 25 H 109/79 98 12/08/19 13:24 94 H 109/69 98 12/08/19 13:23 91 H 109/69 12/08/19 13:16 88 23 109/69 98 12/08/19 13:00 87 14 109/69 98 12/08/19 12:46 89 19 108/65 97 12/08/19 12:30 91 H 21 108/65 98 12/08/19 12:16 96 H 24 118/69 97 12/08/19 12:00 100.5 F H 96 H 102 H 24 118/69 97 12/08/19 11:46 99 H 20 115/71 97 12/08/19 11:30 99 H 24 115/71 96 12/08/19 11:16 100 H 24 118/74 95 12/08/19 11:00 99 H 23 118/74 96 12/08/19 10:46 110 H 22 128/85 94 12/08/19 10:30 107 H 25 H 112/76 96 - Physical Examination General: Other (intubated) Cardiac: Positive: Reg Rate and Rhythm - Labs and Meds CBC 12/09/19 Range/Units 04:03 Hgb 9.1 L (11.8-15.2) gm/dl Hct 28.9 L (35.5-45.6) % Plt Count 262 (140-440) K/mm3 - Allied health notes Allied health notes reviewed: nursing
[2019-12-09 10:42] LABS: Blood Urea Nitrogen 25 mg/dL (9-20); Calcium 9.5 mg/dL (8.4-10.2); Hemolysis Index 3
[2019-12-09 10:45] LABS: BUN/Creatinine Ratio 42
--- NOTE | 2019-12-09 14:52 | Progress Note ---
Assessment and Plan -Persistent fevers; secondary to sepsis -Severe sepsis; secondary to bilateral pneumonia, persistent fevers -Acute hypoxemic respiratory failure, on vent unable to wean -Bilateral pneumonia, community acquired, -Aspiration Pneumonia -Sustained SVT, on amiodarone -Acute on chronic systolic congestive heart failure -History of cerebrovascular accident. -Tobacco use disorder -Alcohol abuse with DT -Acute chronic obstructive pulmonary disease exacerbation. -Hypertension and hypertensive urgency at presentation. -History of arthritis. -Paroxysmal atrial fibrillation -Leukocytosis with possible sepsis. -Lactic acidosis. -Oropharyngeal dysphagia -S/P Knee surgery -History of peptic Ulcer Surgery -DVT prophylaxis COVID-19 test; 11/24/2019; negative 11/26/2019; negative Plan Continue ventilatory support, Wean as tolerated and extubate., Pulmonary critical care following Completed ceftriaxone and azithromycin for total 5 days per ID ID now started cefepime and Vanco Continue anti-failure medications, cardiology following cont Steroids, Continue diuresis as needed Aspiration precautions Continue amiodarone and metoprolol for suppression of paroxysmal atrial fibrillation. Anticoagulation currently is with intravenous heparin. DVT/GI prophy Heparin/Protonix Plan of care reviewed with the patient's nurse Closely monitor the patient and adjust management as needed The high probability of a clinically significant, sudden or life threatening deterioration of the [Respiratory, cardiovascular & neurological] system(s) required my full and direct attention, intervention and personal management. The aggregate critical care time was [33] minutes without overlap. Time includes spent on [x] Data Review and interpretation [x] Patient assessment and monitoring of vital signs [x] Documentation [x] Medication orders and management Brief History Patient is a 64-year-old male with known history of hypertension, COPD, history of coronary artery disease, CHF with ejection fraction of 20 to 25% in August 2018 presenting to the emergency room via EMS complaining of shortness of breath. Patient was found to be hypoxic and in respiratory distress. Patient was placed on CPAP in route to the hospital. Oxygen saturation was said to be 88%. Started on Solu-Medrol, Lasix and magnesium in ED, patient was also found to be lethargic with an oxygen saturation of about 91% on CPAP. He was subsequently intubated. Work-up in the emergency room including chest x-ray reveals bilateral pneumonia. He had an elevated white count of 14 and also had an elevated BNP. Patient to be admitted to the ICU and placed on empiric IV antibiotics for pne umonia. He will also be tested positive for COVID-19 and placed on isolation precautions. Rmains intubated on ventilatory support, sputum cultures positive for Pseudomonas, ID changed antibiotics to cefepime and Vanco. 11/25: Leukocytosis improving. Continue current management anticipate extubation possible today. 11/26. Still intubated. Failed SBT yesterday. Repeat COVID-19 test is negative. 11/27. CT head ordered for possible neuro status change is negative. More responsive as the day progressed as per RN. Chest xray today shows interval improvement. He is still on antibiotics - will complete regimen today. 11/28: Considering difficult extubation and severe cardiomyopathy, will obtain cardiology consult. Aspiration precautions, tube feeds held, continue antibiotics. 11/29: Still with intermittent fever but improving imaging, continue diuresis. 11/30; Extremely agitated when placed on PSV- SVT, hypertension. Patiet acknowledged that he drinks. IV Ativan given, CIWA protocol initiated. 12 lead ordered showed SVT, one dose of amiodarone ordered. continue to follow up cardiology recommendation 12/01: Patient remains on mechanical ventilation, getting SBT trial. Remains in SVT, started on amiodarone drip by cardiology. 12/02; patient is on mechanical ventilation and on spontaneous breathing trial. Cardiology started the patient on PO amiodarone. Patient is on cefepime. 12/03: patient is on mechanical ventilation. Cardiology started the patient on PO amiodarone for SVT. Patient is on cefepime, no fever overnight. 12/04: Patient is sedated and on mechanical ventilation. Patient had fever yesterday afternoon 102.3, ID changed his cefepime to meropenem. Heart rate is controlled, cardiology is following. Patient has paroxysmal atrial fibrillation and on amiodarone and metoprolol, subcu heparin for anticoagulation and will need oral anticoagulation once stable. 12/05: Sputum cultures positive for Pseudomonas, ID following 12/06; patient is febrile T-max 24 hours 102 F ,ID change antibiotics to cefepime and Vancomycin 12/07: resumed care. Na 149 today, start on 1/2 NS. cont current care 12/08: remains in a stable sinus rhythm and stable blood pressure, continue supportive care. wean off vent as tolerated. persistent fever - ordered CTA chest Subjective Date of service: 12/09/19 Principal diagnosis: Ac hypoxemic resp failure; Pneumonia; PUI COVID-19; CHF; COPD; HTN Interval history: Patient seen and examined Patient intubated on mechanical ventilation Discussed with RN at the bedside spiked fever 100.3 last night Objective - Exam Narrative Exam: General appearance: Present: well-nourished, other (Intubated), opens eyes to names and follows minor command - EENT Eyes: Present: PERRL, EOM intact. Absent: scleral icterus ENT: clear oral mucosa, dentition normal - Neck Neck: Present: supple, normal ROM - Respiratory Respiratory effort: normal, mechanical ventilation Respiratory: bilateral: rales - Cardiovascular Rhythm: regular Heart Sounds: Present: S1 & S2, tachycardic. Absent: gallop, systolic murmur, diastolic murmur, rub - Extremities Extremities: no ischemia, pulses intact, pulses symmetrical, No edema, Full ROM Peripheral Pulses: within normal limits - Abdominal General gastrointestinal: Present: soft, non-tender, non-distended, normal bowel sounds. Absent: mass - Integumentary Integumentary: Present: clear, warm, dry. Absent: rash - Musculoskeletal Musculoskeletal: no joint swelling - Psychiatric Psychiatric: sedated Neurology: no focal deficits - Constitutional Vitals: Vital Signs - 12hr 12/09/19 12/09/19 12/09/19 03:00 03:16 03:30 Temperature Pulse Rate 85 82 86 Respiratory 19 21 21 Rate Blood Pressure 106/66 106/66 106/66 O2 Sat by Pulse 95 96 97 Oximetry 12/09/19 12/09/19 12/09/19 03:46 04:00 04:07 Temperature 99.4 F Pulse Rate 85 81 84 Respiratory 22 21 Rate Blood Pressure 106/66 105/62 105/62 O2 Sat by Pulse 92 97 100 Oximetry 12/09/19 12/09/19 12/09/19 04:16 04:30 04:46 Temperature Pulse Rate 84 84 80 Respiratory 24 21 20 Rate Blood Pressure 105/62 105/62 105/62 O2 Sat by Pulse 98 95 98 Oximetry 12/09/19 12/09/19 12/09/19 05:00 05:16 05:30 Temperature Pulse Rate 78 79 78 Respiratory 18 21 20 Rate Blood Pressure 100/63 100/63 100/63 O2 Sat by Pulse 98 97 98 Oximetry 12/09/19 12/09/19 12/09/19 05:46 06:00 06:16 Temperature Pulse Rate 78 78 84 Respiratory 15 13 19 Rate Blood Pressure 100/63 100/59 100/59 O2 Sat by Pulse 95 97 Oximetry 12/09/19 12/09/19 12/09/19 06:30 06:46 07:00 Temperature Pulse Rate 79 90 85 Respiratory 21 20 20 Rate Blood Pressure 100/59 100/59 109/68 O2 Sat by Pulse 97 98 99 Oximetry 12/09/19 12/09/19 12/09/19 07:16 07:30 07:46 Temperature Pulse Rate 77 75 74 Respiratory 19 19 21 Rate Blood Pressure 109/68 109/68 109/68 O2 Sat by Pulse 98 98 98 Oximetry 12/09/19 12/09/19 12/09/19 07:48 08:00 08:16 Temperature 99.5 F Pulse Rate 74 74 73 Respiratory 19 20 Rate Blood Pressure 109/68 102/65 102/65 O2 Sat by Pulse 100 98 98 Oximetry 12/09/19 12/09/19 12/09/19 08:30 08:46 09:00 Temperature Pulse Rate 73 72 74 Respiratory 20 19 22 Rate Blood Pressure 102/65 102/65 103/68 O2 Sat by Pulse 98 97 94 Oximetry 12/09/19 12/09/19 12/09/19 09:16 09:18 09:30 Temperature Pulse Rate 82 77 75 Respiratory 17 19 20 Rate Blood Pressure 103/68 103/68 103/68 O2 Sat by Pulse 100 97 97 Oximetry 12/09/19 12/09/19 12/09/19 09:46 10:00 10:16 Temperature Pulse Rate 77 78 77 Respiratory 13 21 20 Rate Blood Pressure 103/68 109/68 103/68 O2 Sat by Pulse 99 98 98 Oximetry 12/09/19 12/09/19 12/09/19 10:30 10:46 11:00 Temperature Pulse Rate 75 73 75 Respiratory 20 19 20 Rate Blood Pressure 103/68 103/68 108/67 O2 Sat by Pulse 97 98 98 Oximetry 12/09/19 12/09/19 12/09/19 11:08 11:16 11:30 Temperature Pulse Rate 79 77 76 Respiratory 16 22 Rate Blood Pressure 108/67 108/67 O2 Sat by Pulse 98 97 Oximetry 12/09/19 12/09/19 12/09/19 11:32 11:46 11:49 Temperature Pulse Rate 77 74 Respiratory 21 21 Rate Blood Pressure 108/67 108/67 O2 Sat by Pulse 99 97 98 Oximetry 12/09/19 12/09/19 12/09/19 12:00 12:16 12:30 Temperature 99.3 F Pulse Rate 73 73 74 Respiratory 18 20 19 Rate Blood Pressure 103/63 103/63 103/63 O2 Sat by Pulse 98 98 98 Oximetry 12/09/19 12/09/19 12/09/19 12:46 13:00 13:16 Temperature Pulse Rate 74 75 75 Respiratory 19 20 24 Rate Blood Pressure 103/63 105/67 103/63 O2 Sat by Pulse 98 91 93 Oximetry 12/09/19 12/09/19 12/09/19 13:30 13:46 14:00 Temperature Pulse Rate 77 77 76 Respiratory 15 21 16 Rate Blood Pressure 103/63 103/63 114/73 O2 Sat by Pulse 93 90 99 Oximetry 12/09/19 14:02 Temperature Pulse Rate 76 Respiratory Rate Blood Pressure 114/73 O2 Sat by Pulse Oximetry - Labs CBC & Chem 7: 12/10/19 04:14 12/10/19 04:14 Labs: Abnormal lab results 12/08/19 12/08/19 12/09/19 Range/Units 18:11 23:53 04:03 Hgb 9.1 L (11.8-15.2) gm/dl Hct 28.9 L (35.5-45.6) % Heparin Anti-Xa Level (0.3-0.7) U.I./ml BUN (9-20) mg/dL Creatinine (0.8-1.3) mg/dL Glucose (75-100) mg/dL POC Glucose 122 H 162 H (70-105) 12/09/19 12/09/19 12/09/19 Range/Units 04:03 05:53 09:43 Hgb (11.8-15.2) gm/dl Hct (35.5-45.6) % Heparin Anti-Xa Level 0.15 L (0.3-0.7) U.I./ml BUN 25 H (9-20) mg/dL Creatinine 0.6 L (0.8-1.3) mg/dL Glucose 131 H (75-100) mg/dL POC Glucose 124 H (70-105) 12/09/19 Range/Units 12:41 Hgb (11.8-15.2) gm/dl Hct (35.5-45.6) % Heparin Anti-Xa Level (0.3-0.7) U.I./ml BUN (9-20) mg/dL Creatinine (0.8-1.3) mg/dL Glucose (75-100) mg/dL POC Glucose 109 H (70-105) HEART Score - HEART Score Troponin: Troponin T < 0.010 ng/mL (0.00-0.029) 11/24/19 02:53
[2019-12-09] MEDS: LORazepam 2 MG/ML VIAL IV PRN (21:23)
[2019-12-09] MEDS: QUEtiapine 100 MG TAB PO SCH (21:37)
[2019-12-09] MEDS: POLYETHYLENE GLYCOL 3350 17 GM POWDER PO SCH (22:12)
[2019-12-10 05:02] LABS: Hematocrit 30.4 % (35.5-45.6); Hemoglobin 9.6 gm/dl (11.8-15.2); Mean Corpuscular HGB Conc 32 % (32-34); Mean Corpuscular Volume 91 fl (84-94); Platelet Count 276 K/mm3 (140-440); Red Blood Count 3.34 M/mm3 (3.65-5.03); Red Cell Distribution Width 15.4 % (13.2-15.2)
[2019-12-10] MEDS: VANCOMYCIN 1,500 MG in SODIUM CHLORIDE 0.9% 500 ML 500 ML IV SCH ×2 (05:25→17:45)
[2019-12-10 05:33] LABS: Blood Urea Nitrogen 21 mg/dL (9-20); Calcium 9.3 mg/dL (8.4-10.2); Hemolysis Index 33
[2019-12-10 05:38] LABS: BUN/Creatinine Ratio 35
[2019-12-10] MEDS: METOPROLOL TARTRATE 50 MG TAB PO SCH ×3 (06:11→22:00)
[2019-12-10] MEDS: INSULIN LISPRO 100 UNIT/ML VIAL 3 mL SUB-Q SCH ×4 (06:18→18:40)
[2019-12-10 06:41] LABS: Hypochromasia 1+; Platelet Estimate Consistent w Auto; Total Cells Counted 100
[2019-12-10] MEDS: CEFEPIME/NS 2 GM/100 ML 2 GM/100 ML BAG IV SCH ×3 (07:02→21:06)
[2019-12-10] MEDS: fentaNYL DRIP Premix 2,000 MCG/100 ML BAG IV SCH ×2 (09:34→23:28)
[2019-12-10] MEDS: DOCUSATE SODIUM 100 MG/10 ML ORAL LIQD FEEDTUBE SCH ×2 (09:36→21:05)
[2019-12-10] MEDS: QUEtiapine 25 MG TAB PO SCH (09:36)
[2019-12-10] MEDS: AMIODARONE 200 MG TAB PO SCH ×2 (09:36→21:04)
[2019-12-10] MEDS: FAMOTIDINE 20 MG TAB PO SCH ×2 (09:37→21:01)
--- NOTE | 2019-12-10 10:28 | Progress Note ---
Assessment and Plan Multifocal pneumonia with intermittent fevers negative COVID-19 test Respiratory failure Transient Afib after CPAP trial currently in sinus rhythm Ischemic Cardiomyopathy, resolving re-echo this presentation reports an LVEF 40-45%. echo 08/2018: decreased LVEF 20-25%. Hx of CAD [facility] 12/2018: mild in-stent restenosis. No significant residual disease. Recommendations: Continue amiodarone and metoprolol for suppression of paroxysmal atrial fibrillation. Conservative cardiac management. Subjective Date of service: 12/10/19 Principal diagnosis: Ac hypoxemic resp failure; Pneumonia; PUI COVID-19; CHF; COPD; HTN Interval history: Remains in a stable sinus rhythm. Intravenous heparin discontinued due to bloody secretions from ET tube suctioning per nurse. HCT Objective Vital Signs Temp Pulse Pulse Resp BP Pulse Ox 12/10/19 08:00 85 62 23 109/64 97 12/10/19 07:45 88 24 94/56 96 12/10/19 07:31 92 H 27 H 94/56 97 12/10/19 07:24 97 H 94/56 98 12/10/19 07:15 88 25 H 94/56 96 12/10/19 07:01 97 H 22 106/68 100 12/10/19 06:45 94 H 19 106/68 93 12/10/19 06:31 79 19 106/68 97 12/10/19 06:15 78 14 106/68 97 12/10/19 06:11 78 105/70 12/10/19 06:00 80 22 105/70 97 12/10/19 05:45 80 22 106/68 97 12/10/19 05:31 80 21 106/68 97 12/10/19 05:15 79 13 106/68 97 12/10/19 05:00 81 22 106/68 98 12/10/19 04:45 81 18 109/71 97 12/10/19 04:31 82 22 113/73 98 12/10/19 04:15 80 21 113/73 97 12/10/19 04:00 99.7 F H 78 22 113/73 98 12/10/19 03:45 81 18 113/73 96 12/10/19 03:31 82 21 113/73 96 12/10/19 03:15 84 23 113/73 95 12/10/19 03:00 86 21 113/73 96 12/10/19 02:45 86 24 110/71 97 12/10/19 02:31 88 25 H 110/71 98 12/10/19 02:15 78 21 110/71 97 12/10/19 02:00 76 21 110/71 97 12/10/19 01:45 74 17 106/68 97 12/10/19 01:31 74 22 106/68 98 12/10/19 01:15 74 13 106/68 98 12/10/19 01:00 74 16 106/68 98 12/10/19 00:45 79 22 113/76 95 12/10/19 00:31 75 21 113/76 96 12/10/19 00:15 75 21 113/76 95 12/10/19 00:00 100.3 F H 75 20 113/76 98 12/09/19 23:45 78 16 112/71 97 12/09/19 23:31 80 21 112/71 84 12/09/19 23:15 84 23 112/71 84 12/09/19 23:00 84 18 112/71 94 12/09/19 22:45 94 H 22 115/75 80 L 12/09/19 22:41 94 H 21 115/75 82 L 12/09/19 22:31 100 H 16 115/75 89 12/09/19 22:15 103 H 21 115/75 92 12/09/19 22:13 102 H 115/75 12/09/19 22:00 115 H 26 H 164/101 93 12/09/19 21:45 121 H 30 H 65/41 96 12/09/19 21:44 119 H 96 12/09/19 21:31 132 H 28 H 65/41 92 12/09/19 21:15 139 H 27 H 65/41 90 12/09/19 21:01 120 H 22 105/78 99 12/09/19 20:45 86 15 105/78 97 12/09/19 20:31 89 20 105/78 96 12/09/19 20:15 101 H 20 105/78 99 12/09/19 20:00 99.9 F H 76 21 105/78 97 12/09/19 19:45 82 20 110/74 97 12/09/19 19:31 82 21 110/74 95 12/09/19 19:15 83 20 110/74 94 12/09/19 19:00 85 21 110/74 96 12/09/19 18:45 86 22 113/69 96 12/09/19 18:31 80 20 113/69 96 12/09/19 18:15 78 16 113/69 96 12/09/19 18:00 76 19 113/69 98 12/09/19 17:45 77 20 105/67 98 12/09/19 17:31 74 19 105/67 99 12/09/19 17:15 74 16 105/67 100 12/09/19 17:00 73 19 105/67 98 12/09/19 16:45 73 20 113/67 97 12/09/19 16:31 77 23 113/67 100 12/09/19 16:30 76 18 113/67 100 12/09/19 16:15 70 19 113/67 100 12/09/19 16:00 72 16 113/67 99 12/09/19 15:56 98.9 F 12/09/19 15:45 72 16 107/70 98 12/09/19 15:31 75 12/09/19 15:30 76 17 107/70 99 12/09/19 15:15 74 13 107/70 97 12/09/19 15:00 76 18 107/70 98 12/09/19 14:45 76 18 114/73 97 12/09/19 14:31 74 19 97 12/09/19 14:16 75 12 114/73 97 12/09/19 14:02 76 114/73 12/09/19 14:00 76 16 114/73 99 12/09/19 13:46 77 21 103/63 90 12/09/19 13:30 77 15 103/63 93 12/09/19 13:16 75 24 103/63 93 12/09/19 13:00 75 20 105/67 91 12/09/19 12:46 74 19 103/63 98 12/09/19 12:30 74 19 103/63 98 12/09/19 12:16 73 20 103/63 98 12/09/19 12:00 99.3 F 73 18 103/63 98 12/09/19 11:49 98 12/09/19 11:46 74 21 108/67 97 12/09/19 11:32 77 21 108/67 99 12/09/19 11:30 76 22 108/67 97 12/09/19 11:16 77 16 98 12/09/19 11:08 79 12/09/19 11:00 75 20 98 12/09/19 10:46 73 19 / 98 12/09/19 10:30 75 20 /68 97 - Physical Examination General: Other (intubated) Cardiac: Positive: Reg Rate and Rhythm - Labs and Meds CBC 12/10/19 Range/Units 04:14 WBC 13.3 H (4.5-11.0) K/mm3 RBC 3.34 L (3.65-5.03) M/mm3 Hgb 9.6 L (11.8-15.2) gm/dl Hct 30.4 L (35.5-45.6) % Plt Count 276 (140-440) K/mm3 Comprehensive Metabolic Panel 12/09/19 12/10/19 Range/Units 09:43 04:14 Sodium 143 147 H (137-145) mmol/L Potassium 4.0 4.4 (3.6-5.0) mmol/L Chloride 105.0 108.3 H (98-107) mmol/L Carbon Dioxide 29 27 (22-30) mmol/L BUN 25 H 21 H (9-20) mg/dL Creatinine 0.6 L 0.6 L (0.8-1.3) mg/dL Glucose 131 H 104 H (75-100) mg/dL Calcium 9.5 9.3 (8.4-10.2) mg/dL - Allied health notes Allied health notes reviewed: nursing
--- NOTE | 2019-12-10 10:52 | Progress Note ---
Assessment and Plan Cultures: Blood culture 12/02/2019 negative Blood culture 11/24/2019 negative Urine culture 11/24/2019 negative COVID-19 negative x2 12/04/2019 resp culture: PsA 12/06/2019 blood cultures: No growth today A/P: 64-year-old male past medical history hypertension, COPD, CAD, CHF with reduced ejection fraction admitted with acute hypoxic respiratory failure likely secondary to pneumonia #Sepsis: With persistent fever 100.3, unclear etiology possible due to pneumonia. Procalcitonin improving, from 1.5-->0.6. #Acute hypoxemic respiratory failure: Likely secondary to pneumonia, COVID-19 testing negative x 2. Remains intubated, on CPAP trial #Bilateral pneumonia: COVID-19 negative twice. Culture growing Pseudomonas, pansensitive. Repeat chest x-ray with persistent right base opacity. ? Non- resolving pneumonia #CHF: per primary team #COPD: per pulmonary #Elevated LFTs: worsening ? sepsis ?cholecystitis Recs: -chest CT ordered per Dr Chester- pending pending suspect non resolving pneumonia/PE -Obtain RUQ US eval for cholecystitis -pending -Continue cefepime IV for now - day 5 -Continue vancomycin with PK consult - day 4 -Obtain MRSA PCR-pending, reordered -discussed with micro lab -Monitor LFTs Dr. Wade will be covering tomorrow Patsy Dominique MD [facility] ([facility]) Office [phone] Subjective Date of service: 12/10/19 Principal diagnosis: Ac hypoxemic resp failure; Pneumonia; PUI COVID-19; CHF; COPD; HTN Interval history: Remains intubated, alert, follows commands, remains spiking fever 100.3 Objective - Exam Narrative Exam: Constitutional: Alert intubated Head, Ears, Nose: Normocephalic, atraumatic. External ears, nose normal Oral: ETT in place, OG tube in place Eyes: Conjunctivae/corneas clear. No icterus. No ptosis. Neck: Supple, no meningeal signs Cardiovascular: RRR Respiratory: diminished GI: Soft, non-tender; bowel sounds normal. No peritoneal signs Musculoskeletal: Left hand swelling left arm with swelling Skin: No rash or abscess Hem/Lymphatic: No palpable cervical or supraclavicular nodes. No lymphangitis Psych: Alert Neurological: Alert - Constitutional Vitals: Vital Signs Temp Pulse Resp BP Pulse Ox 99.7 F H 62 23 109/64 97 12/10/19 04:00 12/10/19 08:00 12/10/19 08:00 12/10/19 08:00 12/10/19 08:00 Temperature -Last 24 Hours Temperature 99.7 F Temperature 100.3 F Temperature 99.9 F Temperature 98.9 F Temperature 99.3 F - Labs CBC & Chem 7: 12/10/19 04:14 12/10/19 04:14 Labs: Abnormal lab results 12/09/19 12/10/19 12/10/19 Range/Units 12:41 00:13 04:14 WBC 13.3 H (4.5-11.0) K/mm3 RBC 3.34 L (3.65-5.03) M/mm3 Hgb 9.6 L (11.8-15.2) gm/dl Hct 30.4 L (35.5-45.6) % RDW 15.4 H (13.2-15.2) % Seg Neuts % (Manual) 75.0 H (40.0-70.0) % Lymphocytes % (Manual) 13.0 L (13.4-35.0) % Monocytes % (Manual) 8.0 H (0.0-7.3) % Basophils % (Manual) 2.0 H (0.0-1.8) % Seg Neutrophils # Man 10.0 H (1.8-7.7) K/mm3 Monocytes # (Manual) 1.1 H (0.0-0.8) K/mm3 Basophils # (Manual) 0.3 H (0.0-0.1) K/mm3 Sodium (137-145) mmol/L Chloride (98-107) mmol/L BUN (9-20) mg/dL Creatinine (0.8-1.3) mg/dL Glucose (75-100) mg/dL POC Glucose 109 H 120 H (70-105) 12/10/19 Range/Units 04:14 WBC (4.5-11.0) K/mm3 RBC (3.65-5.03) M/mm3 Hgb (11.8-15.2) gm/dl Hct (35.5-45.6) % RDW (13.2-15.2) % Seg Neuts % (Manual) (40.0-70.0) % Lymphocytes % (Manual) (13.4-35.0) % Monocytes % (Manual) (0.0-7.3) % Basophils % (Manual) (0.0-1.8) % Seg Neutrophils # Man (1.8-7.7) K/mm3 Monocytes # (Manual) (0.0-0.8) K/mm3 Basophils # (Manual) (0.0-0.1) K/mm3 Sodium 147 H (137-145) mmol/L Chloride 108.3 H (98-107) mmol/L BUN 21 H (9-20) mg/dL Creatinine 0.6 L (0.8-1.3) mg/dL Glucose 104 H (75-100) mg/dL POC Glucose (70-105)
--- NOTE | 2019-12-10 13:35 | Progress Note ---
Assessment and Plan Acute hypoxemic respiratory failure Bilateral pneumonia, community acquired. Acute congestive heart failure exacerbation. History of cerebrovascular accident. Acute chronic obstructive pulmonary disease exacerbation. Hypertension and hypertensive urgency at presentation. History of arthritis. Oropharyngeal dysphagia Stop heparin , has tracheal bleeding with hemoglobin that is slowly trending down Get lower extremity dopplers r/o DVT CTA chest Antibiotics per ID, MRSA nares swab - continue to monitor renal function, hemodynamics and electrolyte profile - continue to wean oxygen for O2 sats > 90% - continue bronchodilators with pulmonary hygiene per RT - VAP bundle addressed (Aspiration precautions, HOB >40) - continue to wean per pulmonary driven protocols - continue prn analgesia per CPOT score - follow clinically re: fever curves / trend WBC - Avoid delirium (no benzodiazepines if they can be avoided) - Enteral nutrition at goal rate as tolerated - continue accuchecks with glycemic control per SSI for target blood glucose goal of 140-180 mg/dL while critically ill; Avoid hypoglycemia - continue VTE prophylaxis with Heparin - continue stress ulcer prophylaxis with Famotidine - continue mobility protocols for pressure ulcer prophylaxis - continue fall precautions - continue wound care management per RN / WCT - Supportive transfusions as indicated to keep HgB>7g/dL - Continue to monitor neurologic function - Continue chronic home medications as clinically indicated - Continue all supportive care CONDITION: CRITICAL PROGNOSIS: GUARDED CODE STATUS: FULL CODE The high probability of a clinically significant, sudden or life threatening deterioration of the [Respiratory, cardiovascular & neurological] system(s) required my full and direct attention, intervention and personal management. The aggregate critical care time was [33] minutes without overlap. Time includes spent on [x] Data Review and interpretation [x] Patient assessment and monitoring of vital signs [x] Documentation [x] Medication orders and management Subjective Date of service: 12/10/19 Principal diagnosis: Ac hypoxemic resp failure; Pneumonia; PUI COVID-19; CHF; COPD; HTN Interval history: Patient is seen today for: Acute hypoxemic respiratory failure; [place]. Pneumonia (CAP); PUI COVID-19 infection; AE-CHF; AE-COPD; H/O CVA; HTN Seen and examined at bedside; 24 hour events reviewed; nursing and respiratory care staff consulted; no adverse overnight events reported to me; resting peacefully in bed; awake and alert, ETT in place. No asynchrony, Vent 500/12/8/40%. Tolerated 12 hours of PSV 02/27 yesterday On Fentanyl at 1mcg, heparin infusion with bloody tracheal secretions No fevers Objective Vital Signs - 12hr 12/10/19 12/10/19 12/10/19 01:45 02:00 02:15 Temperature Pulse Rate 74 76 78 Pulse Rate [ From Monitor] Respiratory 17 21 21 Rate Blood Pressure 106/68 110/71 110/71 O2 Sat by Pulse 97 97 97 Oximetry 12/10/19 12/10/19 12/10/19 02:31 02:45 03:00 Temperature Pulse Rate 88 86 86 Pulse Rate [ From Monitor] Respiratory 25 H 24 21 Rate Blood Pressure 110/71 110/71 113/73 O2 Sat by Pulse 98 97 96 Oximetry 12/10/19 12/10/19 12/10/19 03:15 03:31 03:45 Temperature Pulse Rate 84 82 81 Pulse Rate [ From Monitor] Respiratory 23 21 18 Rate Blood Pressure 113/73 113/73 113/73 O2 Sat by Pulse 95 96 96 Oximetry 12/10/19 12/10/19 12/10/19 04:00 04:15 04:31 Temperature 99.7 F H Pulse Rate 78 80 82 Pulse Rate [ From Monitor] Respiratory 22 21 22 Rate Blood Pressure 113/73 113/73 113/73 O2 Sat by Pulse 98 97 98 Oximetry 12/10/19 12/10/19 12/10/19 04:45 05:00 05:15 Temperature Pulse Rate 81 81 79 Pulse Rate [ From Monitor] Respiratory 18 22 13 Rate Blood Pressure 109/71 106/68 106/68 O2 Sat by Pulse 97 98 97 Oximetry 12/10/19 12/10/19 12/10/19 05:31 05:45 06:00 Temperature Pulse Rate 80 80 80 Pulse Rate [ From Monitor] Respiratory 21 22 22 Rate Blood Pressure 106/68 106/68 105/70 O2 Sat by Pulse 97 97 97 Oximetry 12/10/19 12/10/19 12/10/19 06:11 06:15 06:31 Temperature Pulse Rate 78 78 79 Pulse Rate [ From Monitor] Respiratory 14 19 Rate Blood Pressure 105/70 106/68 106/68 O2 Sat by Pulse 97 97 Oximetry 12/10/19 12/10/19 12/10/19 06:45 07:01 07:15 Temperature Pulse Rate 94 H 97 H 88 Pulse Rate [ From Monitor] Respiratory 19 22 25 H Rate Blood Pressure 106/68 106/68 94/56 O2 Sat by Pulse 93 100 96 Oximetry 12/10/19 12/10/19 12/10/19 07:24 07:31 07:45 Temperature Pulse Rate 97 H 92 H 88 Pulse Rate [ From Monitor] Respiratory 27 H 24 Rate Blood Pressure 94/56 94/56 94/56 O2 Sat by Pulse 98 97 96 Oximetry 12/10/19 12/10/19 12/10/19 08:00 08:15 08:31 Temperature 99 F Pulse Rate 84 84 82 Pulse Rate [ 62 From Monitor] Respiratory 23 22 20 Rate Blood Pressure 109/64 109/64 109/64 O2 Sat by Pulse 97 96 97 Oximetry 12/10/19 12/10/19 12/10/19 08:45 09:00 09:15 Temperature Pulse Rate 83 83 Pulse Rate [ From Monitor] Respiratory 22 21 Rate Blood Pressure 109/64 111/65 111/65 O2 Sat by Pulse 95 94 95 Oximetry 12/10/19 12/10/19 12/10/19 09:31 09:45 10:00 Temperature Pulse Rate 82 80 81 Pulse Rate [ From Monitor] Respiratory 20 21 22 Rate Blood Pressure 111/65 111/65 103/65 O2 Sat by Pulse 96 96 95 Oximetry 12/10/19 12/10/19 12/10/19 10:15 10:31 10:45 Temperature Pulse Rate 81 78 93 H Pulse Rate [ From Monitor] Respiratory 20 21 26 H Rate Blood Pressure 103/65 103/65 103/65 O2 Sat by Pulse 95 96 95 Oximetry 12/10/19 12/10/19 12/10/19 11:00 11:15 11:18 Temperature Pulse Rate 79 81 81 Pulse Rate [ From Monitor] Respiratory 23 18 23 Rate Blood Pressure 112/72 112/72 112/72 O2 Sat by Pulse 94 96 97 Oximetry 12/10/19 12/10/19 12/10/19 11:31 11:45 12:00 Temperature 98.5 F Pulse Rate 110 H 114 H 107 H Pulse Rate [ 104 H From Monitor] Respiratory 25 H 29 H 27 H Rate Blood Pressure 112/72 112/72 143/93 O2 Sat by Pulse 97 95 97 Oximetry 12/10/19 12/10/19 12/10/19 12:15 12:31 12:45 Temperature Pulse Rate 104 H 104 H 99 H Pulse Rate [ From Monitor] Respiratory 26 H 17 15 Rate Blood Pressure 143/93 143/93 143/93 O2 Sat by Pulse 96 95 98 Oximetry 12/10/19 12/10/19 13:00 13:11 Temperature Pulse Rate 100 H 100 H Pulse Rate [ From Monitor] Respiratory 21 Rate Blood Pressure 135/84 135/84 O2 Sat by Pulse 97 Oximetry Constitutional: no acute distress, agitated, other (elderly and obese male, normocephalic with mildly increased respiratory effort at rest on MVS) Eyes: non-icteric ENT: oropharynx moist, other (ETT 24 cm JASON) Neck: supple, no JVD Effort: very labored Ascultation: Bilateral: clear, diminished breath sounds, rhonchi (scant; improved RLL air entry also) Percussion: Bilateral: not dull Cardiovascular: irregular rhythm Gastrointestinal: normoactive bowel sounds, soft, non-tender, non-distended Integumentary: normal Extremities: no cyanosis, no edema, pulses normal, no ischemia or petechiae Neurologic: non-focal exam (moves all extremities with extreme agitation), pupils equal and round, motor strength normal and, other (sedated lightly) Psychiatric: mood appropriate, affect normal CBC and BMP: 12/11/19 08:36 12/11/19 08:36 ABG, PT/INR, D-dimer: ABG ABG pH 7.439 (7.320-7.450) 12/02/19 12:58 POC ABG pCO2 45.1 mmHg (32.0-48.0) 12/02/19 12:58 ABG pCO2 43.4 mm Hg 11/30/19 04:56 POC ABG pO2 78.1 mmHg (83-108) L 12/02/19 12:58 ABG pO2 56.3 mm Hg (80.0-90.0) L 11/30/19 04:56 POC ABG HCO3 29.9 12/02/19 12:58 ABG O2 Saturation 91.5 % (95.0-99.0) L 11/30/19 04:56 PT/INR, D-dimer PT 14.6 Sec. (12.2-14.9) 12/07/19 14:51 INR 1.13 (0.87-1.13) 12/07/19 14:51 Abnormal lab findings: Abnormal Labs 11/24/19 11/24/19 11/24/19 02:53 02:53 03:45 WBC 14.3 H RBC Hgb Hct MCHC RDW 17.2 H Lymph % (Auto) [place] % (Auto) [place] # Eos # Seg Neutrophils % Seg Neuts % (Manual) Lymphocytes % (Manual) Monocytes % (Manual) Basophils % (Manual) Seg Neutrophils # Seg Neutrophils # Man 8.3 H Monocytes # (Manual) 0.9 H Basophils # (Manual) Heparin Anti-Xa Level ABG pH 7.313 L POC ABG pO2 ABG pO2 102.8 H ABG HCO3 ABG O2 Saturation ABG Base Excess -2.9 L ABG Hemoglobin ABG Oxyhemoglobin Oxyhemoglobin 93.9 L Sodium Potassium Chloride BUN Creatinine Glucose 195 H POC Glucose Lactic Acid Calcium Phosphorus Magnesium AST ALT Lactate Dehydrogenase CK-MB (CK-2) 4.3 H C-Reactive Protein NT-Pro-B Natriuret Pep 1181 H Total Protein Albumin Urine WBC (Auto) 11/24/19 11/24/19 11/24/19 04:53 04:53 10:37 WBC RBC Hgb Hct MCHC RDW Lymph % (Auto) [place] % (Auto) [place] # Eos # Seg Neutrophils % Seg Neuts % (Manual) Lymphocytes % (Manual) Monocytes % (Manual) Basophils % (Manual) Seg Neutrophils # Seg Neutrophils # Man Monocytes # (Manual) Basophils # (Manual) Heparin Anti-Xa Level ABG pH POC ABG pO2 ABG pO2 ABG HCO3 ABG O2 Saturation ABG Base Excess ABG Hemoglobin ABG Oxyhemoglobin Oxyhemoglobin Sodium Potassium Chloride BUN Creatinine Glucose 162 H POC Glucose Lactic Acid 2.40 H* 2.50 H* Calcium Phosphorus Magnesium AST ALT Lactate Dehydrogenase 240 H CK-MB (CK-2) C-Reactive Protein NT-Pro-B Natriuret Pep Total Protein Albumin Urine WBC (Auto) 11/24/19 11/24/19 11/24/19 12:21 14:50 19:54 WBC RBC Hgb Hct MCHC RDW Lymph % (Auto) [place] % (Auto) [place] # Eos # Seg Neutrophils % Seg Neuts % (Manual) Lymphocytes % (Manual) Monocytes % (Manual) Basophils % (Manual) Seg Neutrophils # Seg Neutrophils # Man Monocytes # (Manual) Basophils # (Manual) Heparin Anti-Xa Level ABG pH POC ABG pO2 ABG pO2 ABG HCO3 ABG O2 Saturation ABG Base Excess ABG Hemoglobin ABG Oxyhemoglobin Oxyhemoglobin Sodium Potassium Chloride BUN Creatinine Glucose POC Glucose 145 H 143 H 124 H Lactic Acid Calcium Phosphorus Magnesium AST ALT Lactate Dehydrogenase CK-MB (CK-2) C-Reactive Protein NT-Pro-B Natriuret Pep Total Protein Albumin Urine WBC (Auto) 11/25/19 11/25/19 11/25/19 00:18 03:18 05:11 WBC 13.7 H RBC Hgb Hct MCHC RDW 17.1 H Lymph % (Auto) 10.8 L [place] % (Auto) 8.7 H [place] # 1.2 H Eos # Seg Neutrophils % 80.2 H Seg Neuts % (Manual) Lymphocytes % (Manual) Monocytes % (Manual) Basophils % (Manual) Seg Neutrophils # 11.0 H Seg Neutrophils # Man Monocytes # (Manual) Basophils # (Manual) Heparin Anti-Xa Level ABG pH 7.333 L POC ABG pO2 ABG pO2 61.2 L ABG HCO3 ABG O2 Saturation 90.2 L ABG Base Excess ABG Hemoglobin 13.7 L ABG Oxyhemoglobin Oxyhemoglobin 88.2 L Sodium Potassium Chloride BUN Creatinine Glucose POC Glucose 109 H Lactic Acid Calcium Phosphorus Magnesium AST ALT Lactate Dehydrogenase CK-MB (CK-2) C-Reactive Protein NT-Pro-B Natriuret Pep Total Protein Albumin Urine WBC (Auto) 11/25/19 11/25/19 11/26/19 05:11 11:40 03:12 WBC RBC Hgb Hct MCHC RDW Lymph % (Auto) [place] % (Auto) [place] # Eos # Seg Neutrophils % Seg Neuts % (Manual) Lymphocytes % (Manual) Monocytes % (Manual) Basophils % (Manual) Seg Neutrophils # Seg Neutrophils # Man Monocytes # (Manual) Basophils # (Manual) Heparin Anti-Xa Level ABG pH POC ABG pO2 ABG pO2 155.1 H ABG HCO3 27.8 H ABG O2 Saturation ABG Base Excess ABG Hemoglobin 12.2 L ABG Oxyhemoglobin Oxyhemoglobin Sodium Potassium Chloride BUN 23 H Creatinine Glucose 110 H POC Glucose 108 H Lactic Acid Calcium Phosphorus Magnesium AST ALT Lactate Dehydrogenase CK-MB (CK-2) C-Reactive Protein NT-Pro-B Natriuret Pep Total Protein Albumin Urine WBC (Auto) 0911/26/19 11/26/19 06:17 10:43 10:43 WBC 11.4 H RBC Hgb Hct MCHC RDW 17.1 H Lymph % (Auto) [place] % (Auto) [place] # Eos # Seg Neutrophils % Seg Neuts % (Manual) Lymphocytes % (Manual) Monocytes % (Manual) Basophils % (Manual) Seg Neutrophils # Seg Neutrophils # Man Monocytes # (Manual) Basophils # (Manual) Heparin Anti-Xa Level ABG pH POC ABG pO2 ABG pO2 ABG HCO3 ABG O2 Saturation ABG Base Excess ABG Hemoglobin ABG Oxyhemoglobin Oxyhemoglobin Sodium Potassium Chloride BUN 29 H Creatinine Glucose POC Glucose 107 H Lactic Acid Calcium Phosphorus Magnesium AST ALT Lactate Dehydrogenase CK-MB (CK-2) C-Reactive Protein NT-Pro-B Natriuret Pep Total Protein Albumin Urine WBC (Auto) 11/26/19 11/27/19 11/27/19 17:11 01:53 04:11 WBC RBC Hgb Hct MCHC RDW Lymph % (Auto) [place] % (Auto) [place] # Eos # Seg Neutrophils % Seg Neuts % (Manual) Lymphocytes % (Manual) Monocytes % (Manual) Basophils % (Manual) Seg Neutrophils # Seg Neutrophils # Man Monocytes # (Manual) Basophils # (Manual) Heparin Anti-Xa Level ABG pH POC ABG pO2 ABG pO2 ABG HCO3 29.2 H ABG O2 Saturation ABG Base Excess 3.4 H ABG Hemoglobin 13.3 L ABG Oxyhemoglobin Oxyhemoglobin 94.5 L Sodium Potassium Chloride BUN Creatinine Glucose POC Glucose 113 H 108 H Lactic Acid Calcium Phosphorus Magnesium AST ALT Lactate Dehydrogenase CK-MB (CK-2) C-Reactive Protein NT-Pro-B Natriuret Pep Total Protein Albumin Urine WBC (Auto) 11/27/19 11/28/19 11/28/19 05:27 05:00 05:25 WBC RBC Hgb Hct MCHC RDW Lymph % (Auto) [place] % (Auto) [place] # Eos # Seg Neutrophils % Seg Neuts % (Manual) Lymphocytes % (Manual) Monocytes % (Manual) Basophils % (Manual) Seg Neutrophils # Seg Neutrophils # Man Monocytes # (Manual) Basophils # (Manual) Heparin Anti-Xa Level ABG pH POC ABG pO2 68.1 L ABG pO2 ABG HCO3 ABG O2 Saturation ABG Base Excess ABG Hemoglobin ABG Oxyhemoglobin 91.2 L Oxyhemoglobin Sodium Potassium Chloride BUN Creatinine Glucose POC Glucose 111 H 110 H Lactic Acid Calcium Phosphorus Magnesium AST ALT Lactate Dehydrogenase CK-MB (CK-2) C-Reactive Protein NT-Pro-B Natriuret Pep Total Protein Albumin Urine WBC (Auto) 11/28/19 11/28/19 11/28/19 12:08 13:47 13:47 WBC 11.3 H RBC Hgb Hct MCHC RDW 16.1 H Lymph % (Auto) [place] % (Auto) 9.9 H [place] # 1.1 H Eos # Seg Neutrophils % 71.4 H Seg Neuts % (Manual) Lymphocytes % (Manual) Monocytes % (Manual) Basophils % (Manual) Seg Neutrophils # 8.1 H Seg Neutrophils # Man Monocytes # (Manual) Basophils # (Manual) Heparin Anti-Xa Level ABG pH POC ABG pO2 ABG pO2 ABG HCO3 ABG O2 Saturation ABG Base Excess ABG Hemoglobin ABG Oxyhemoglobin Oxyhemoglobin Sodium Potassium Chloride BUN 23 H Creatinine Glucose 123 H POC Glucose 112 H Lactic Acid Calcium Phosphorus Magnesium AST ALT Lactate Dehydrogenase CK-MB (CK-2) C-Reactive Protein NT-Pro-B Natriuret Pep Total Protein Albumin 3.7 L Urine WBC (Auto) 11/28/19 11/29/19 11/29/19 17:26 03:55 17:04 WBC RBC Hgb Hct MCHC RDW Lymph % (Auto) [place] % (Auto) [place] # Eos # Seg Neutrophils % Seg Neuts % (Manual) Lymphocytes % (Manual) Monocytes % (Manual) Basophils % (Manual) Seg Neutrophils # Seg Neutrophils # Man Monocytes # (Manual) Basophils # (Manual) Heparin Anti-Xa Level ABG pH POC ABG pO2 ABG pO2 65.7 L ABG HCO3 28.3 H ABG O2 Saturation 93.9 L ABG Base Excess 3.6 H ABG Hemoglobin 13.3 L ABG Oxyhemoglobin Oxyhemoglobin 91.5 L Sodium Potassium Chloride BUN Creatinine Glucose POC Glucose 123 H 119 H Lactic Acid Calcium Phosphorus Magnesium AST ALT Lactate Dehydrogenase CK-MB (CK-2) C-Reactive Protein NT-Pro-B Natriuret Pep Total Protein Albumin Urine WBC (Auto) 11/30/19 11/30/19 11/30/19 04:17 04:17 04:56 WBC 13.4 H RBC Hgb Hct MCHC RDW 15.6 H Lymph % (Auto) [place] % (Auto) [place] # Eos # Seg Neutrophils % Seg Neuts % (Manual) Lymphocytes % (Manual) Monocytes % (Manual) Basophils % (Manual) Seg Neutrophils # Seg Neutrophils # Man Monocytes # (Manual) Basophils # (Manual) Heparin Anti-Xa Level ABG pH POC ABG pO2 ABG pO2 56.3 L ABG HCO3 29.3 H ABG O2 Saturation 91.5 L ABG Base Excess 4.7 H ABG Hemoglobin 12.1 L ABG Oxyhemoglobin Oxyhemoglobin 89.2 L Sodium 147 H Potassium Chloride BUN 30 H Creatinine Glucose 124 H POC Glucose Lactic Acid Calcium Phosphorus Magnesium AST ALT Lactate Dehydrogenase CK-MB (CK-2) C-Reactive Protein NT-Pro-B Natriuret Pep Total Protein Albumin 3.8 L Urine WBC (Auto) 11/30/19 11/30/19 11/30/19 05:51 11:54 18:17 WBC RBC Hgb Hct MCHC RDW Lymph % (Auto) [place] % (Auto) [place] # Eos # Seg Neutrophils % Seg Neuts % (Manual) Lymphocytes % (Manual) Monocytes % (Manual) Basophils % (Manual) Seg Neutrophils # Seg Neutrophils # Man Monocytes # (Manual) Basophils # (Manual) Heparin Anti-Xa Level ABG pH POC ABG pO2 ABG pO2 ABG HCO3 ABG O2 Saturation ABG Base Excess ABG Hemoglobin ABG Oxyhemoglobin Oxyhemoglobin Sodium Potassium Chloride BUN Creatinine Glucose POC Glucose 127 H 115 H 143 H Lactic Acid Calcium Phosphorus Magnesium AST ALT Lactate Dehydrogenase CK-MB (CK-2) C-Reactive Protein NT-Pro-B Natriuret Pep Total Protein Albumin Urine WBC (Auto) 12/01/19 12/01/19 12/01/19 01:18 05:22 12:16 WBC RBC Hgb Hct MCHC RDW Lymph % (Auto) [place] % (Auto) [place] # Eos # Seg Neutrophils % Seg Neuts % (Manual) Lymphocytes % (Manual) Monocytes % (Manual) Basophils % (Manual) Seg Neutrophils # Seg Neutrophils # Man Monocytes # (Manual) Basophils # (Manual) Heparin Anti-Xa Level ABG pH POC ABG pO2 ABG pO2 ABG HCO3 ABG O2 Saturation ABG Base Excess ABG Hemoglobin ABG Oxyhemoglobin Oxyhemoglobin Sodium Potassium 3.5 L Chloride 107.8 H BUN 37 H Creatinine Glucose 157 H POC Glucose 118 H 148 H Lactic Acid Calcium 8.2 L D Phosphorus Magnesium AST 48 H ALT 60 H Lactate Dehydrogenase 194 H CK-MB (CK-2) C-Reactive Protein 8.50 H NT-Pro-B Natriuret Pep Total Protein 5.5 L Albumin 2.8 L Urine WBC (Auto) 12/01/19 12/02/19 12/02/19 18:04 00:05 05:16 WBC 11.4 H RBC Hgb Hct MCHC RDW 15.9 H Lymph % (Auto) [place] % (Auto) 9.9 H [place] # 1.1 H Eos # Seg Neutrophils % 70.3 H Seg Neuts % (Manual) Lymphocytes % (Manual) Monocytes % (Manual) Basophils % (Manual) Seg Neutrophils # 8.0 H Seg Neutrophils # Man Monocytes # (Manual) Basophils # (Manual) Heparin Anti-Xa Level ABG pH POC ABG pO2 ABG pO2 ABG HCO3 ABG O2 Saturation ABG Base Excess ABG Hemoglobin ABG Oxyhemoglobin Oxyhemoglobin Sodium Potassium Chloride BUN Creatinine Glucose POC Glucose 143 H 107 H Lactic Acid Calcium Phosphorus Magnesium AST ALT Lactate Dehydrogenase CK-MB (CK-2) C-Reactive Protein NT-Pro-B Natriuret Pep Total Protein Albumin Urine WBC (Auto) 12/02/19 12/02/19 12/02/19 05:16 06:03 11:52 WBC RBC Hgb Hct MCHC RDW Lymph % (Auto) [place] % (Auto) [place] # Eos # Seg Neutrophils % Seg Neuts % (Manual) Lymphocytes % (Manual) Monocytes % (Manual) Basophils % (Manual) Seg Neutrophils # Seg Neutrophils # Man Monocytes # (Manual) Basophils # (Manual) Heparin Anti-Xa Level ABG pH POC ABG pO2 ABG pO2 ABG HCO3 ABG O2 Saturation ABG Base Excess ABG Hemoglobin ABG Oxyhemoglobin Oxyhemoglobin Sodium 146 H Potassium Chloride BUN 28 H Creatinine Glucose 123 H POC Glucose 110 H 152 H Lactic Acid Calcium Phosphorus Magnesium AST ALT Lactate Dehydrogenase CK-MB (CK-2) C-Reactive Protein NT-Pro-B Natriuret Pep Total Protein Albumin Urine WBC (Auto) 12/02/19 12/02/19 12/02/19 12:58 17:58 23:36 WBC RBC Hgb Hct MCHC RDW Lymph % (Auto) [place] % (Auto) [place] # Eos # Seg Neutrophils % Seg Neuts % (Manual) Lymphocytes % (Manual) Monocytes % (Manual) Basophils % (Manual) Seg Neutrophils # Seg Neutrophils # Man Monocytes # (Manual) Basophils # (Manual) Heparin Anti-Xa Level ABG pH POC ABG pO2 78.1 L ABG pO2 ABG HCO3 ABG O2 Saturation ABG Base Excess ABG Hemoglobin ABG Oxyhemoglobin Oxyhemoglobin Sodium Potassium Chloride BUN Creatinine Glucose POC Glucose 120 H 123 H Lactic Acid Calcium Phosphorus Magnesium AST ALT Lactate Dehydrogenase CK-MB (CK-2) C-Reactive Protein NT-Pro-B Natriuret Pep Total Protein Albumin Urine WBC (Auto) 12/03/19 12/03/19 12/03/19 06:03 06:14 11:46 WBC RBC Hgb Hct MCHC RDW Lymph % (Auto) [place] % (Auto) [place] # Eos # Seg Neutrophils % Seg Neuts % (Manual) Lymphocytes % (Manual) Monocytes % (Manual) Basophils % (Manual) Seg Neutrophils # Seg Neutrophils # Man Monocytes # (Manual) Basophils # (Manual) Heparin Anti-Xa Level ABG pH POC ABG pO2 ABG pO2 ABG HCO3 ABG O2 Saturation ABG Base Excess ABG Hemoglobin ABG Oxyhemoglobin Oxyhemoglobin Sodium Potassium Chloride BUN Creatinine Glucose POC Glucose 142 H 130 H Lactic Acid Calcium Phosphorus Magnesium AST ALT Lactate Dehydrogenase CK-MB (CK-2) C-Reactive Protein NT-Pro-B Natriuret Pep Total Protein Albumin Urine WBC (Auto) 8.0 H 12/03/19 12/03/19 12/04/19 15:50 17:39 00:04 WBC RBC Hgb Hct MCHC RDW Lymph % (Auto) [place] % (Auto) [place] # Eos # Seg Neutrophils % Seg Neuts % (Manual) Lymphocytes % (Manual) Monocytes % (Manual) Basophils % (Manual) Seg Neutrophils # Seg Neutrophils # Man Monocytes # (Manual) Basophils # (Manual) Heparin Anti-Xa Level ABG pH POC ABG pO2 ABG pO2 ABG HCO3 ABG O2 Saturation ABG Base Excess ABG Hemoglobin ABG Oxyhemoglobin Oxyhemoglobin Sodium Potassium Chloride BUN Creatinine Glucose POC Glucose 146 H 133 H Lactic Acid Calcium Phosphorus 2.40 L Magnesium AST ALT Lactate Dehydrogenase CK-MB (CK-2) C-Reactive Protein NT-Pro-B Natriuret Pep Total Protein Albumin Urine WBC (Auto) 12/04/19 12/04/19 12/04/19 03:58 03:58 05:22 WBC 12.5 H RBC Hgb 11.2 L Hct 35.2 L MCHC RDW 16.0 H Lymph % (Auto) [place] % (Auto) 9.6 H [place] # 1.2 H Eos # 0.5 H Seg Neutrophils % Seg Neuts % (Manual) Lymphocytes % (Manual) Monocytes % (Manual) Basophils % (Manual) Seg Neutrophils # 8.6 H Seg Neutrophils # Man Monocytes # (Manual) Basophils # (Manual) Heparin Anti-Xa Level ABG pH POC ABG pO2 ABG pO2 ABG HCO3 ABG O2 Saturation ABG Base Excess ABG Hemoglobin ABG Oxyhemoglobin Oxyhemoglobin Sodium 146 H Potassium Chloride 108.6 H BUN 30 H Creatinine 0.7 L Glucose 121 H POC Glucose 132 H Lactic Acid Calcium Phosphorus Magnesium AST ALT Lactate Dehydrogenase CK-MB (CK-2) C-Reactive Protein NT-Pro-B Natriuret Pep Total Protein Albumin Urine WBC (Auto) 12/04/19 12/04/19 12/05/19 13:26 18:43 00:19 WBC RBC Hgb Hct MCHC RDW Lymph % (Auto) [place] % (Auto) [place] # Eos # Seg Neutrophils % Seg Neuts % (Manual) Lymphocytes % (Manual) Monocytes % (Manual) Basophils % (Manual) Seg Neutrophils # Seg Neutrophils # Man Monocytes # (Manual) Basophils # (Manual) Heparin Anti-Xa Level ABG pH POC ABG pO2 ABG pO2 ABG HCO3 ABG O2 Saturation ABG Base Excess ABG Hemoglobin ABG Oxyhemoglobin Oxyhemoglobin Sodium Potassium Chloride BUN Creatinine Glucose POC Glucose 185 H 156 H 150 H Lactic Acid Calcium Phosphorus Magnesium AST ALT Lactate Dehydrogenase CK-MB (CK-2) C-Reactive Protein NT-Pro-B Natriuret Pep Total Protein Albumin Urine WBC (Auto) 12/05/19 12/05/19 12/05/19 03:37 03:37 05:14 WBC 16.3 H RBC Hgb 11.4 L Hct MCHC RDW 15.6 H Lymph % (Auto) 9.9 L [place] % (Auto) 9.7 H [place] # 1.6 H Eos # Seg Neutrophils % 78.0 H Seg Neuts % (Manual) Lymphocytes % (Manual) Monocytes % (Manual) Basophils % (Manual) Seg Neutrophils # 12.7 H Seg Neutrophils # Man Monocytes # (Manual) Basophils # (Manual) Heparin Anti-Xa Level ABG pH POC ABG pO2 ABG pO2 ABG HCO3 ABG O2 Saturation ABG Base Excess ABG Hemoglobin ABG Oxyhemoglobin Oxyhemoglobin Sodium 146 H Potassium Chloride 107.2 H BUN 27 H Creatinine 0.7 L Glucose 171 H POC Glucose 168 H Lactic Acid Calcium Phosphorus Magnesium AST ALT Lactate Dehydrogenase CK-MB (CK-2) C-Reactive Protein NT-Pro-B Natriuret Pep Total Protein Albumin Urine WBC (Auto) 12/05/19 12/05/19 12/05/19 12:31 18:10 23:58 WBC RBC Hgb Hct MCHC RDW Lymph % (Auto) [place] % (Auto) [place] # Eos # Seg Neutrophils % Seg Neuts % (Manual) Lymphocytes % (Manual) Monocytes % (Manual) Basophils % (Manual) Seg Neutrophils # Seg Neutrophils # Man Monocytes # (Manual) Basophils # (Manual) Heparin Anti-Xa Level ABG pH POC ABG pO2 ABG pO2 ABG HCO3 ABG O2 Saturation ABG Base Excess ABG Hemoglobin ABG Oxyhemoglobin Oxyhemoglobin Sodium Potassium Chloride BUN Creatinine Glucose POC Glucose 159 H 198 H 115 H Lactic Acid Calcium Phosphorus Magnesium AST ALT Lactate Dehydrogenase CK-MB (CK-2) C-Reactive Protein NT-Pro-B Natriuret Pep Total Protein Albumin Urine WBC (Auto) 12/06/19 12/06/19 12/06/19 05:24 05:24 05:25 WBC 14.9 H RBC Hgb 10.8 L Hct 34.0 L MCHC RDW 15.6 H Lymph % (Auto) 10.7 L [place] % (Auto) 8.3 H [place] # 1.2 H Eos # Seg Neutrophils % 78.7 H Seg Neuts % (Manual) Lymphocytes % (Manual) Monocytes % (Manual) Basophils % (Manual) Seg Neutrophils # 11.7 H Seg Neutrophils # Man Monocytes # (Manual) Basophils # (Manual) Heparin Anti-Xa Level ABG pH POC ABG pO2 ABG pO2 ABG HCO3 ABG O2 Saturation ABG Base Excess ABG Hemoglobin ABG Oxyhemoglobin Oxyhemoglobin Sodium 148 H Potassium 5.1 H Chloride 107.6 H BUN 27 H Creatinine 0.7 L Glucose 155 H POC Glucose 157 H Lactic Acid Calcium Phosphorus Magnesium AST ALT Lactate Dehydrogenase CK-MB (CK-2) C-Reactive Protein NT-Pro-B Natriuret Pep Total Protein Albumin Urine WBC (Auto) 12/07/19 12/07/19 12/07/19 00:13 05:34 11:33 WBC RBC Hgb Hct MCHC RDW Lymph % (Auto) [place] % (Auto) [place] # Eos # Seg Neutrophils % Seg Neuts % (Manual) Lymphocytes % (Manual) Monocytes % (Manual) Basophils % (Manual) Seg Neutrophils # Seg Neutrophils # Man Monocytes # (Manual) Basophils # (Manual) Heparin Anti-Xa Level ABG pH POC ABG pO2 ABG pO2 ABG HCO3 ABG O2 Saturation ABG Base Excess ABG Hemoglobin ABG Oxyhemoglobin Oxyhemoglobin Sodium Potassium Chloride BUN Creatinine Glucose POC Glucose 142 H 111 H 169 H Lactic Acid Calcium Phosphorus Magnesium AST ALT Lactate Dehydrogenase CK-MB (CK-2) C-Reactive Protein NT-Pro-B Natriuret Pep Total Protein Albumin Urine WBC (Auto) 12/07/19 12/07/19 12/07/19 12:41 13:25 18:19 WBC 12.4 H RBC 3.53 L Hgb 10.2 L Hct 32.1 L MCHC RDW 15.3 H Lymph % (Auto) 10.6 L [place] % (Auto) 7.8 H [place] # 1.0 H Eos # Seg Neutrophils % 77.6 H Seg Neuts % (Manual) Lymphocytes % (Manual) Monocytes % (Manual) Basophils % (Manual) Seg Neutrophils # 9.6 H Seg Neutrophils # Man Monocytes # (Manual) Basophils # (Manual) Heparin Anti-Xa Level ABG pH POC ABG pO2 ABG pO2 ABG HCO3 ABG O2 Saturation ABG Base Excess ABG Hemoglobin ABG Oxyhemoglobin Oxyhemoglobin Sodium 149 H Potassium Chloride 108.4 H BUN 26 H Creatinine 0.6 L Glucose 149 H POC Glucose 164 H Lactic Acid Calcium Phosphorus Magnesium 2.60 H AST 121 H ALT 145 H Lactate Dehydrogenase CK-MB (CK-2) C-Reactive Protein NT-Pro-B Natriuret Pep Total Protein Albumin 2.6 L Urine WBC (Auto) 12/07/19 12/08/19 12/08/19 22:25 00:02 03:55 WBC 13.3 H RBC 3.40 L Hgb 9.7 L Hct 30.8 L MCHC 31 L RDW 15.5 H Lymph % (Auto) [place] % (Auto) 8.1 H [place] # 1.1 H Eos # Seg Neutrophils % 73.0 H Seg Neuts % (Manual) Lymphocytes % (Manual) Monocytes % (Manual) Basophils % (Manual) Seg Neutrophils # 9.7 H Seg Neutrophils # Man Monocytes # (Manual) Basophils # (Manual) Heparin Anti-Xa Level 0.12 L ABG pH POC ABG pO2 ABG pO2 ABG HCO3 ABG O2 Saturation ABG Base Excess ABG Hemoglobin ABG Oxyhemoglobin Oxyhemoglobin Sodium Potassium Chloride BUN Creatinine Glucose POC Glucose 151 H Lactic Acid Calcium Phosphorus Magnesium AST ALT Lactate Dehydrogenase CK-MB (CK-2) C-Reactive Protein NT-Pro-B Natriuret Pep Total Protein Albumin Urine WBC (Auto) 12/08/19 12/08/19 12/08/19 03:55 05:21 06:01 WBC RBC Hgb Hct MCHC RDW Lymph % (Auto) [place] % (Auto) [place] # Eos # Seg Neutrophils % Seg Neuts % (Manual) Lymphocytes % (Manual) Monocytes % (Manual) Basophils % (Manual) Seg Neutrophils # Seg Neutrophils # Man Monocytes # (Manual) Basophils # (Manual) Heparin Anti-Xa Level 0.20 L ABG pH POC ABG pO2 ABG pO2 ABG HCO3 ABG O2 Saturation ABG Base Excess ABG Hemoglobin ABG Oxyhemoglobin Oxyhemoglobin Sodium 149 H Potassium Chloride 108.0 H BUN 28 H Creatinine 0.6 L Glucose 144 H POC Glucose 143 H Lactic Acid Calcium Phosphorus Magnesium AST 98 H ALT 145 H Lactate Dehydrogenase CK-MB (CK-2) C-Reactive Protein NT-Pro-B Natriuret Pep Total Protein 6.0 L Albumin 2.4 L Urine WBC (Auto) 12/08/19 12/08/19 12/08/19 12:08 18:11 23:53 WBC RBC Hgb Hct MCHC RDW Lymph % (Auto) [place] % (Auto) [place] # Eos # Seg Neutrophils % Seg Neuts % (Manual) Lymphocytes % (Manual) Monocytes % (Manual) Basophils % (Manual) Seg Neutrophils # Seg Neutrophils # Man Monocytes # (Manual) Basophils # (Manual) Heparin Anti-Xa Level ABG pH POC ABG pO2 ABG pO2 ABG HCO3 ABG O2 Saturation ABG Base Excess ABG Hemoglobin ABG Oxyhemoglobin Oxyhemoglobin Sodium Potassium Chloride BUN Creatinine Glucose POC Glucose 172 H 122 H 162 H Lactic Acid Calcium Phosphorus Magnesium AST ALT Lactate Dehydrogenase CK-MB (CK-2) C-Reactive Protein NT-Pro-B Natriuret Pep Total Protein Albumin Urine WBC (Auto) 12/09/19 12/09/19 12/09/19 04:03 04:03 05:53 WBC RBC Hgb 9.1 L Hct 28.9 L MCHC RDW Lymph % (Auto) [place] % (Auto) [place] # Eos # Seg Neutrophils % Seg Neuts % (Manual) Lymphocytes % (Manual) Monocytes % (Manual) Basophils % (Manual) Seg Neutrophils # Seg Neutrophils # Man Monocytes # (Manual) Basophils # (Manual) Heparin Anti-Xa Level 0.15 L ABG pH POC ABG pO2 ABG pO2 ABG HCO3 ABG O2 Saturation ABG Base Excess ABG Hemoglobin ABG Oxyhemoglobin Oxyhemoglobin Sodium Potassium Chloride BUN Creatinine Glucose POC Glucose 124 H Lactic Acid Calcium Phosphorus Magnesium AST ALT Lactate Dehydrogenase CK-MB (CK-2) C-Reactive Protein NT-Pro-B Natriuret Pep Total Protein Albumin Urine WBC (Auto) 12/09/19 12/09/19 12/10/19 09:43 12:41 00:13 WBC RBC Hgb Hct MCHC RDW Lymph % (Auto) [place] % (Auto) [place] # Eos # Seg Neutrophils % Seg Neuts % (Manual) Lymphocytes % (Manual) Monocytes % (Manual) Basophils % (Manual) Seg Neutrophils # Seg Neutrophils # Man Monocytes # (Manual) Basophils # (Manual) Heparin Anti-Xa Level ABG pH POC ABG pO2 ABG pO2 ABG HCO3 ABG O2 Saturation ABG Base Excess ABG Hemoglobin ABG Oxyhemoglobin Oxyhemoglobin Sodium Potassium Chloride BUN 25 H Creatinine 0.6 L Glucose 131 H POC Glucose 109 H 120 H Lactic Acid Calcium Phosphorus Magnesium AST ALT Lactate Dehydrogenase CK-MB (CK-2) C-Reactive Protein NT-Pro-B Natriuret Pep Total Protein Albumin Urine WBC (Auto) 12/10/19 12/10/19 12/10/19 04:14 04:14 12:00 WBC 13.3 H RBC 3.34 L Hgb 9.6 L Hct 30.4 L MCHC RDW 15.4 H Lymph % (Auto) [place] % (Auto) [place] # Eos # Seg Neutrophils % Seg Neuts % (Manual) 75.0 H Lymphocytes % (Manual) 13.0 L Monocytes % (Manual) 8.0 H Basophils % (Manual) 2.0 H Seg Neutrophils # Seg Neutrophils # Man 10.0 H Monocytes # (Manual) 1.1 H Basophils # (Manual) 0.3 H Heparin Anti-Xa Level ABG pH POC ABG pO2 ABG pO2 ABG HCO3 ABG O2 Saturation ABG Base Excess ABG Hemoglobin ABG Oxyhemoglobin Oxyhemoglobin Sodium 147 H Potassium Chloride 108.3 H BUN 21 H Creatinine 0.6 L Glucose 104 H POC Glucose 133 H Lactic Acid Calcium Phosphorus Magnesium AST ALT Lactate Dehydrogenase CK-MB (CK-2) C-Reactive Protein NT-Pro-B Natriuret Pep Total Protein Albumin Urine WBC (Auto) Allied health notes reviewed: nursing
--- NOTE | 2019-12-10 13:39 | Progress Note ---
Assessment and Plan -Acute LLL PE -Acute RLE DVT -Persistent fevers; secondary to sepsis and acute PE/DVT -Severe sepsis; secondary to bilateral pneumonia, persistent fevers -Acute hypoxemic respiratory failure, on vent unable to wean -Bilateral pneumonia, community acquired, -Aspiration Pneumonia -Sustained SVT, on amiodarone -Acute on chronic systolic congestive heart failure -History of cerebrovascular accident. -Tobacco use disorder -Alcohol abuse with DT -Acute chronic obstructive pulmonary disease exacerbation. -Hypertension and hypertensive urgency at presentation. -History of arthritis. -Paroxysmal atrial fibrillation -Leukocytosis with possible sepsis. -Lactic acidosis. -Bleeding from ET tube -Oropharyngeal dysphagia -S/P Knee surgery -History of peptic Ulcer Surgery -DVT prophylaxis COVID-19 test; 11/24/2019; negative 11/26/2019; negative Plan Continue ventilatory support, Wean as tolerated and extubate., Pulmonary critical care following Completed ceftriaxone and azithromycin for total 5 days per ID ID now started cefepime and Vanco Continue anti-failure medications, cardiology following cont Steroids, Continue diuresis as needed Aspiration precautions Continue amiodarone and metoprolol for suppression of paroxysmal atrial fibrillation. Anticoagulation currently is with intravenous heparin - was brefly on hold for bleeding from ET tube DVT/GI prophy Heparin/Protonix Plan of care reviewed with the patient's nurse Closely monitor the patient and adjust management as needed The high probability of a clinically significant, sudden or life threatening deterioration of the [Respiratory, cardiovascular & neurological] system(s) required my full and direct attention, intervention and personal management. The aggregate critical care time was [33] minutes without overlap. Time includes spent on [x] Data Review and interpretation [x] Patient assessment and monitoring of vital signs [x] Documentation [x] Medication orders and management Brief History Patient is a 64-year-old male with known history of hypertension, COPD, history of coronary artery disease, CHF with ejection fraction of 20 to 25% in August 2018 presenting to the emergency room via EMS complaining of shortness of breath. Patient was found to be hypoxic and in respiratory distress. Patient was placed on CPAP in route to the hospital. Oxygen saturation was said to be 88%. Started on Solu-Medrol, Lasix and magnesium in ED, patient was also found to be lethargic with an oxygen saturation of about 91% on CPAP. He was subsequently intubated. Work-up in the emergency room including chest x-ray reveals bilateral pneumonia. He had an elevated white count of 14 and also had an elevated BNP. Patient to be admitted to the ICU and placed on empiric IV antibiotics for pneumonia. He will also be tested positive for COVID-19 and placed on isolation precautions. Rmains intubated on ventilatory support, sputum cultures positive for Pseudomonas, ID changed antibiotics to cefepime and Vanco. 11/25: Leukocytosis improving. Continue current management anticipate extubation possible today. 11/26. Still intubated. Failed SBT yesterday. Repeat COVID-19 test is negative. 11/27. CT head ordered for possible neuro status change is negative. More responsive as the day progressed as per RN. Chest xray today shows interval improvement. He is still on antibiotics - will complete regimen today. 11/28: Considering difficult extubation and severe cardiomyopathy, will obtain cardiology consult. Aspiration precautions, tube feeds held, continue antibiotics. 11/29: Still with intermittent fever but improving imaging, continue diuresis. 11/30; Extremely agitated when placed on PSV- SVT, hypertension. Patiet acknowledged that he drinks. IV Ativan given, CIWA protocol initiated. 12 lead ordered showed SVT, one dose of amiodarone ordered. continue to follow up cardiology recommendation 12/01: Patient remains on mechanical ventilation, getting SBT trial. Remains in SVT, started on amiodarone drip by cardiology. 12/02; patient is on mechanical ventilation and on spontaneous breathing trial. Cardiology started the patient on PO amiodarone. Patient is on cefepime. 12/03: patient is on mechanical ventilation. Cardiology started the patient on PO amiodarone for SVT. Patient is on cefepime, no fever overnight. 12/04: Patient is sedated and on mechanical ventilation. Patient had fever yesterday afternoon 102.3, ID changed his cefepime to meropenem. Heart rate is controlled, cardiology is following. Patient has paroxysmal atrial fibrillation and on amiodarone and metoprolol, subcu heparin for anticoagulation and will need oral anticoagulation once stable. 12/05: Sputum cultures positive for Pseudomonas, ID following 12/06; patient is febrile T-max 24 hours 102 F ,ID change antibiotics to cefepime and Vancomycin 12/07: resumed care. Na 149 today, start on 03/26 NS. cont current care 12/08: remains in a stable sinus rhythm and stable blood pressure, continue supportive care. wean off vent as tolerated. persistent fever - ordered CTA chest 12/09: noted bloody discharges from ET tube last night. CTA and LE venous doppler positive for acute PE and DVT. resume heparin drip, consult vascular for possible EKOS/ IVC filter. monitor h/h. cont SBT trial, wean off vent as tolerated Subjective Date of service: 12/10/19 Principal diagnosis: Ac hypoxemic resp failure; Pneumonia; PUI COVID-19; CHF; COPD; HTN Interval history: Patient seen and examined Patient intubated on mechanical ventilation Discussed with RN at the bedside noted bleeding from ET tube Objective - Exam Narrative Exam: General appearance: Present: well-nourished, other (Intubated), opens eyes to names and follows minor command - EENT Eyes: Present: PERRL, EOM intact. Absent: scleral icterus ENT: clear oral mucosa, dentition normal - Neck Neck: Present: supple, normal ROM - Respiratory Respiratory effort: normal, mechanical ventilation Respiratory: bilateral: rales - Cardiovascular Rhythm: regular Heart Sounds: Present: S1 & S2, tachycardic. Absent: gallop, systolic murmur, diastolic murmur, rub - Extremities Extremities: no ischemia, pulses intact, pulses symmetrical, No edema, Full ROM Peripheral Pulses: within normal limits - Abdominal General gastrointestinal: Present: soft, non-tender, non-distended, normal bowel sounds. Absent: mass - Integumentary Integumentary: Present: clear, warm, dry. Absent: rash - Musculoskeletal Musculoskeletal: no joint swelling - Psychiatric Psychiatric: sedated Neurology: no focal deficits - Constitutional Vitals: Vital Signs - 12hr 12/10/19 12/10/19 12/10/19 01:45 02:00 02:15 Temperature Pulse Rate 74 76 78 Pulse Rate [ From Monitor] Respiratory 17 21 21 Rate Blood Pressure 106/68 110/71 110/71 O2 Sat by Pulse 97 97 97 Oximetry 12/10/19 12/10/19 12/10/19 02:31 02:45 03:00 Temperature Pulse Rate 88 86 86 Pulse Rate [ From Monitor] Respiratory 25 H 24 21 Rate Blood Pressure 110/71 110/71 113/73 O2 Sat by Pulse 98 97 96 Oximetry 12/10/19 12/10/19 12/10/19 03:15 03:31 03:45 Temperature Pulse Rate 84 82 81 Pulse Rate [ From Monitor] Respiratory 23 21 18 Rate Blood Pressure 113/73 113/73 113/73 O2 Sat by Pulse 95 96 96 Oximetry 12/10/19 12/10/19 12/10/19 04:00 04:15 04:31 Temperature 99.7 F H Pulse Rate 78 80 82 Pulse Rate [ From Monitor] Respiratory 22 21 22 Rate Blood Pressure 113/73 113/73 113/73 O2 Sat by Pulse 98 97 98 Oximetry 12/10/19 12/10/19 12/10/19 04:45 05:00 05:15 Temperature Pulse Rate 81 81 79 Pulse Rate [ From Monitor] Respiratory 18 22 13 Rate Blood Pressure 109/71 106/68 106/68 O2 Sat by Pulse 97 98 97 Oximetry 12/10/19 12/10/19 12/10/19 05:31 05:45 06:00 Temperature Pulse Rate 80 80 80 Pulse Rate [ From Monitor] Respiratory 21 22 22 Rate Blood Pressure 106/68 106/68 105/70 O2 Sat by Pulse 97 97 97 Oximetry 12/10/19 12/10/19 12/10/19 06:11 06:15 06:31 Temperature Pulse Rate 78 78 79 Pulse Rate [ From Monitor] Respiratory 14 19 Rate Blood Pressure 105/70 106/68 106/68 O2 Sat by Pulse 97 97 Oximetry 12/10/19 12/10/19 12/10/19 06:45 07:01 07:15 Temperature Pulse Rate 94 H 97 H 88 Pulse Rate [ From Monitor] Respiratory 19 22 25 H Rate Blood Pressure 106/68 106/68 94/56 O2 Sat by Pulse 93 100 96 Oximetry 12/10/19 12/10/19 12/10/19 07:24 07:31 07:45 Temperature Pulse Rate 97 H 92 H 88 Pulse Rate [ From Monitor] Respiratory 27 H 24 Rate Blood Pressure 94/56 94/56 94/56 O2 Sat by Pulse 98 97 96 Oximetry 12/10/19 12/10/19 12/10/19 08:00 08:15 08:31 Temperature 99 F Pulse Rate 84 84 82 Pulse Rate [ 62 From Monitor] Respiratory 23 22 20 Rate Blood Pressure 109/64 109/64 109/64 O2 Sat by Pulse 97 96 97 Oximetry 12/10/19 12/10/19 12/10/19 08:45 09:00 09:15 Temperature Pulse Rate 83 83 Pulse Rate [ From Monitor] Respiratory 22 21 Rate Blood Pressure 109/64 111/65 111/65 O2 Sat by Pulse 95 94 95 Oximetry 12/10/19 12/10/19 12/10/19 09:31 09:45 10:00 Temperature Pulse Rate 82 80 81 Pulse Rate [ From Monitor] Respiratory 20 21 22 Rate Blood Pressure 111/65 111/65 103/65 O2 Sat by Pulse 96 96 95 Oximetry 12/10/19 12/10/19 12/10/19 10:15 10:31 10:45 Temperature Pulse Rate 81 78 93 H Pulse Rate [ From Monitor] Respiratory 20 21 26 H Rate Blood Pressure 103/65 103/65 103/65 O2 Sat by Pulse 95 96 95 Oximetry 12/10/19 12/10/19 12/10/19 11:00 11:15 11:18 Temperature Pulse Rate 79 81 81 Pulse Rate [ From Monitor] Respiratory 23 18 23 Rate Blood Pressure 112/72 112/72 112/72 O2 Sat by Pulse 94 96 97 Oximetry 12/10/19 12/10/19 12/10/19 11:31 11:45 12:00 Temperature 98.5 F Pulse Rate 110 H 114 H 107 H Pulse Rate [ 104 H From Monitor] Respiratory 25 H 29 H 27 H Rate Blood Pressure 112/72 112/72 143/93 O2 Sat by Pulse 97 95 97 Oximetry 12/10/19 12/10/19 12/10/19 12:15 12:31 12:45 Temperature Pulse Rate 104 H 104 H 99 H Pulse Rate [ From Monitor] Respiratory 26 H 17 15 Rate Blood Pressure 143/93 143/93 143/93 O2 Sat by Pulse 96 95 98 Oximetry 12/10/19 12/10/19 13:00 13:11 Temperature Pulse Rate 100 H 100 H Pulse Rate [ From Monitor] Respiratory 21 Rate Blood Pressure 135/84 135/84 O2 Sat by Pulse 97 Oximetry - Labs CBC & Chem 7: 12/11/19 08:36 12/11/19 08:36 Labs: Abnormal lab results 12/10/19 12/10/19 12/10/19 Range/Units 00:13 04:14 04:14 WBC 13.3 H (4.5-11.0) K/mm3 RBC 3.34 L (3.65-5.03) M/mm3 Hgb 9.6 L (11.8-15.2) gm/dl Hct 30.4 L (35.5-45.6) % RDW 15.4 H (13.2-15.2) % Seg Neuts % (Manual) 75.0 H (40.0-70.0) % Lymphocytes % (Manual) 13.0 L (13.4-35.0) % Monocytes % (Manual) 8.0 H (0.0-7.3) % Basophils % (Manual) 2.0 H (0.0-1.8) % Seg Neutrophils # Man 10.0 H (1.8-7.7) K/mm3 Monocytes # (Manual) 1.1 H (0.0-0.8) K/mm3 Basophils # (Manual) 0.3 H (0.0-0.1) K/mm3 Sodium 147 H (137-145) mmol/L Chloride 108.3 H (98-107) mmol/L BUN 21 H (9-20) mg/dL Creatinine 0.6 L (0.8-1.3) mg/dL Glucose 104 H (75-100) mg/dL POC Glucose 120 H (70-105) 12/10/19 Range/Units 12:00 WBC (4.5-11.0) K/mm3 RBC (3.65-5.03) M/mm3 Hgb (11.8-15.2) gm/dl Hct (35.5-45.6) % RDW (13.2-15.2) % Seg Neuts % (Manual) (40.0-70.0) % Lymphocytes % (Manual) (13.4-35.0) % Monocytes % (Manual) (0.0-7.3) % Basophils % (Manual) (0.0-1.8) % Seg Neutrophils # Man (1.8-7.7) K/mm3 Monocytes # (Manual) (0.0-0.8) K/mm3 Basophils # (Manual) (0.0-0.1) K/mm3 Sodium (137-145) mmol/L Chloride (98-107) mmol/L BUN (9-20) mg/dL Creatinine (0.8-1.3) mg/dL Glucose (75-100) mg/dL POC Glucose 133 H (70-105) HEART Score - HEART Score Troponin: Troponin T < 0.010 ng/mL (0.00-0.029) 11/24/19 02:53
[2019-12-10] MEDS: ALBUTEROL 2.5 MG/3 ML NEBU IH SCH ×2 (14:08→21:08)
--- NOTE | 2019-12-10 14:42 | Ultrasound Report ---
LIMITED RUQ ABDOMINAL ULTRASOUND INDICATION: RUQ US to eval for cholecystitis. COMPARISON: No relevant prior imaging study available. FINDINGS: Pancreas: Obscured by bowel gas. Abdominal Aorta: No significant abnormality. IVC: No significant abnormality. Liver: The liver measures 19.6 cm in length. Mild hepatomegaly. No focal lesion or parenchymal disea se appreciated. Normal hepatopedal blood flow in the main portal vein. Gallbladder: No significant abnormality. Bile ducts: No significant abnormality. Common bile duct measures 5.2 mm. Right kidney: No significant abnormality visualized.. Free fluid: None. Additional Findings: None. IMPRESSION: Mild hepatomegaly. The gallbladder is unremarkable. The pancreas is obscured.. Signer Name: Nicholas St Jr, MD Signed: 12/10/2019 2:37 PM Workstation Name: [id number]
--- NOTE | 2019-12-10 16:21 | Vascular Lab Report ---
DUPLEX DOPPLER LOWER EXTREMITY VEINS, BILATERAL INDICATION / CLINICAL INFORMATION: Respiratory distress, shortness of breath.. TECHNIQUE: Duplex doppler imaging was performed through the veins of both lower extremities using venous isak sidra and other maneuvers. COMPARISON: None available. FINDINGS: RIGHT COMMON FEMORAL VEIN: Acute nonocclusive thrombus extending into right external iliac vein. RIGHT FEMORAL VEIN: Negative. RIGHT POPLITEAL VEIN: Negative. RIGHT CALF VEINS: Negative. LEFT COMMON FEMORAL VEIN: Negative. LEFT FEMORAL VEIN: Negative. LEFT POPLITEAL VEIN: Negative. LEFT CALF VEINS: Negative. ADDITIONAL FINDINGS: None. IMPRESSION: 1. Acute nonocclusive DVT right common femoral vein extending into distal right external iliac vein 2. No DVT within left lower extremity veins Signer Name: Ankit Saldaña MD Signed: 12/10/2019 4:16 PM Workstation Name: [id number]
[2019-12-10] MEDS: LORazepam 2 MG/ML VIAL IV PRN (17:34)
--- NOTE | 2019-12-10 17:55 | Cat Scan Report ---
CTA of the chest with 3D Reconstruction Indication: ,Hypoxemia; Atelectasis Technique: TECHNIQUE: Axial CT images were obtained through the chest after injection of 100 cc of Omnipaque 350 IV contrast. 3 plane MIP reconstructions were produced. All CT scans at this location are performed using CT dose reduction for ALARA by means of automated exposure control. COMPARISON: None Automatic exposure control was utilized in an attempt to reduce radiation dose. Findings: Pulmonary arteries: There is a pulmonary embolus in the left lower lobe artery. There is significant breathing motion artifact which limits this exam. Lungs: There is peripheral parenchymal opacities in the upper lobes bilaterally have a somewhat groun dglass appearance and these areas are not well evaluated due to breathing motion. There is consolidat ion of the lower lobes bilaterally this could represent atelectasis or pneumonia. There are small sofía ateral effusions. Mediastinum: There is mild prominence of the heart. Aorta: Normal in diameter. No dissection seen within limits of this exam. Impression: This study is positive for pulmonary embolus. There is pulmonary embolus in the left lower lobe pulmo nary artery. There is airspace consolidation dependently bilaterally which could represent atelectasis or pneumoni a. There are peripheral areas of consolidation anteriorly in the upper lobes likely representing pneu monia. The differential diagnosis for this appearance includes atypical pneumonia is. There are very small bilateral effusions. CRITICAL RESULT: Dr. Ansari called this report to the patient's nurse, Rubi, at time 1648 hours central time. Rep ort was confirmed. Signer Name: Jcarlos Ansari MD Signed: 12/10/2019 5:51 PM Workstation Name: [id number]
[2019-12-10] MEDS: QUEtiapine 100 MG TAB PO SCH (21:03)
[2019-12-10 21:41] LABS: Hematocrit 30.5 % (35.5-45.6); Hemoglobin 9.6 gm/dl (11.8-15.2); Mean Corpuscular HGB Conc 32 % (32-34); Mean Corpuscular Volume 91 fl (84-94); Platelet Count 291 K/mm3 (140-440); Red Blood Count 3.36 M/mm3 (3.65-5.03); Red Cell Distribution Width 15.4 % (13.2-15.2)
[2019-12-10 21:54] LABS: INR 1.06 (0.87-1.13)
[2019-12-10] MEDS: POLYETHYLENE GLYCOL 3350 17 GM POWDER PO SCH (23:28)
[2019-12-10] MEDS: HEPARIN/ 0.45% NACL DRIP 25,000 UNIT/500 ML BAG IV SCH (23:34)
[2019-12-11] MEDS: INSULIN LISPRO 100 UNIT/ML VIAL 3 mL SUB-Q SCH ×4 (00:48→19:32)
[2019-12-11] MEDS: ALBUTEROL 2.5 MG/3 ML NEBU IH SCH ×4 (04:37→20:05)
[2019-12-11] MEDS: METOPROLOL TARTRATE 50 MG TAB PO SCH ×3 (06:04→22:29)
[2019-12-11] MEDS: CEFEPIME/NS 2 GM/100 ML 2 GM/100 ML BAG IV SCH ×3 (06:05→22:32)
[2019-12-11] MEDS: VANCOMYCIN 1,500 MG in SODIUM CHLORIDE 0.9% 500 ML 500 ML IV SCH ×2 (08:28→17:00)
[2019-12-11] MEDS: fentaNYL DRIP Premix 2,000 MCG/100 ML BAG IV SCH ×3 (08:29→22:30)
[2019-12-11 09:11] LABS: Hematocrit 29.2 % (35.5-45.6); Hemoglobin 9.6 gm/dl (11.8-15.2); Mean Corpuscular HGB Conc 33 % (32-34); Mean Corpuscular Volume 90 fl (84-94); Platelet Count 257 K/mm3 (140-440); Red Blood Count 3.25 M/mm3 (3.65-5.03); Red Cell Distribution Width 15.7 % (13.2-15.2)
[2019-12-11 09:24] LABS: Blood Urea Nitrogen 18 mg/dL (9-20); Calcium 9.4 mg/dL (8.4-10.2); Hemolysis Index 12
[2019-12-11 09:29] LABS: BUN/Creatinine Ratio 36
[2019-12-11] MEDS: DOCUSATE SODIUM 100 MG/10 ML ORAL LIQD FEEDTUBE SCH ×2 (09:49→22:39)
[2019-12-11] MEDS: FAMOTIDINE 20 MG TAB PO SCH ×2 (09:50→22:29)
[2019-12-11] MEDS: AMIODARONE 200 MG TAB PO SCH ×2 (09:50→22:30)
[2019-12-11] MEDS: QUEtiapine 25 MG TAB PO SCH (09:51)
--- NOTE | 2019-12-11 10:42 | Progress Note ---
Assessment and Plan Multifocal pneumonia with intermittent fevers negative COVID-19 test Respiratory failure Transient Afib after CPAP trial currently in sinus rhythm Ischemic Cardiomyopathy, resolving re-echo this presentation reports an LVEF 40-45%. echo 08/2018: decreased LVEF 20-25%. Hx of CAD [facility] 12/2018: mild in-stent restenosis. No significant residual disease. Recommendations: Continue amiodarone and metoprolol for suppression of paroxysmal atrial fibrillation. Otherwise, conservative cardiac management. Subjective Date of service: 12/11/19 Principal diagnosis: Ac hypoxemic resp failure; Pneumonia; PUI COVID-19; CHF; COPD; HTN Interval history: Remains in a stable sinus rhythm. Objective Vital Signs Temp Pulse Pulse Pulse Resp Resp Resp 12/11/19 10:00 76 14 12/11/19 09:50 76 26 H 12/11/19 09:31 73 16 12/11/19 09:00 73 14 12/11/19 08:31 71 16 12/11/19 08:00 98.3 F 73 15 12/11/19 07:31 72 16 12/11/19 07:04 74 78 20 12/11/19 07:00 74 14 12/11/19 06:31 75 13 12/11/19 06:00 78 17 12/11/19 05:30 82 13 12/11/19 05:00 88 13 12/11/19 04:37 94 H 20 12/11/19 04:31 87 18 12/11/19 04:00 84 16 16 12/11/19 03:31 74 17 12/11/19 03:15 98.9 F 12/11/19 03:00 73 18 12/11/19 02:31 75 17 12/11/19 02:00 75 16 12/11/19 01:31 80 19 12/11/19 01:00 79 17 12/11/19 00:31 82 20 12/11/19 00:25 84 12/11/19 00:15 85 19 12/11/19 00:00 84 20 16 12/10/19 23:45 81 20 12/10/19 23:31 81 20 12/10/19 23:15 77 18 12/10/19 23:11 98.4 F 12/10/19 23:00 78 11 L 12/10/19 22:45 77 19 12/10/19 22:31 76 15 12/10/19 22:15 77 16 12/10/19 22:00 79 18 12/10/19 21:45 80 17 12/10/19 21:31 79 19 12/10/19 21:15 79 17 12/10/19 21:08 80 20 12/10/19 21:00 77 21 12/10/19 20:58 79 12/10/19 20:45 80 22 12/10/19 20:35 79 20 12/10/19 20:31 80 19 12/10/19 20:28 80 20 12/10/19 20:15 83 22 12/10/19 20:00 76 21 12/10/19 19:45 82 22 12/10/19 19:38 98.6 F 12/10/19 19:31 85 22 12/10/19 19:15 87 22 12/10/19 19:00 90 22 12/10/19 18:45 93 H 22 12/10/19 18:33 98 H 12/10/19 18:31 100 H 25 H 12/10/19 18:15 106 H 25 H 12/10/19 18:14 106 H 12/10/19 18:00 107 H 26 H 12/10/19 17:45 118 H 55 H 12/10/19 17:31 128 H 52 H 12/10/19 17:27 125 H 12/10/19 16:45 76 17 12/10/19 16:31 74 18 12/10/19 16:15 75 21 12/10/19 16:00 99 F 74 105 H 25 H 12/10/19 15:45 75 21 12/10/19 15:31 75 20 12/10/19 15:15 75 21 12/10/19 15:00 79 21 12/10/19 14:45 75 21 12/10/19 14:31 82 11 L 12/10/19 14:15 85 20 12/10/19 14:08 76 20 12/10/19 14:06 77 12/10/19 14:00 78 11 L 12/10/19 13:45 81 18 12/10/19 13:31 91 H 29 H 12/10/19 13:15 103 H 35 H 12/10/19 13:11 100 H 12/10/19 13:00 100 H 21 12/10/19 12:45 99 H 15 12/10/19 12:31 104 H 17 12/10/19 12:15 104 H 26 H 12/10/19 12:00 98.5 F 107 H 104 H 27 H 12/10/19 11:45 114 H 29 H 12/10/19 11:31 110 H 25 H 12/10/19 11:18 81 23 12/10/19 11:15 81 18 12/10/19 11:00 79 23 12/10/19 10:45 93 H 26 H BP Pulse Ox 12/11/19 10:00 113/67 92 12/11/19 09:50 113/67 92 12/11/19 09:31 110/73 95 12/11/19 09:00 110/73 97 12/11/19 08:31 103/64 96 12/11/19 08:00 103/64 94 12/11/19 07:31 106/72 98 12/11/19 07:04 106/72 95 12/11/19 07:00 106/72 94 12/11/19 06:31 108/68 97 12/11/19 06:00 108/68 96 12/11/19 05:30 110/67 98 12/11/19 05:00 111/81 98 12/11/19 04:37 12/11/19 04:31 110/67 98 12/11/19 04:00 110/67 96 12/11/19 03:31 108/64 96 12/11/19 03:15 12/11/19 03:00 108/64 95 12/11/19 02:31 109/68 95 12/11/19 02:00 109/68 12/11/19 01:31 106/69 94 12/11/19 01:00 106/69 96 12/11/19 00:31 120/74 94 12/11/19 00:25 120/74 94 12/11/19 00:15 120/74 97 12/11/19 00:00 120/74 98 12/10/19 23:45 118/74 98 12/10/19 23:31 118/74 98 12/10/19 23:15 118/74 97 12/10/19 23:11 12/10/19 23:00 118/74 12/10/19 22:45 111/63 97 09/17/20 22:31 111/63 97 20 22:15 111/63 97 20 22:00 111/63 95 20 21:45 109/68 97 20 21:31 109/68 97 12/09/20 21:15 109/68 98 20 21:08 20 21:00 102/67 94 20 20:58 102/67 98 20 20:45 109/68 97 20 20:35 109/68 95 20 20:31 109/68 94 20 20:28 94 20 20:15 109/68 96 20 20:00 109/68 99 20 19:45 110/75 94 20 19:38 20 19:31 110/75 93 1720 19:15 110/75 94 20 19:00 110/75 90 20 18:45 167/115 93 1720 18:33 127/76 92 20 18:31 167/115 84 20 18:15 127/76 92 20 18:14 127/76 93 20 18:00 127/76 95 20 17:45 167/115 88 20 17:31 167/115 77 L 20 17:27 111/71 20 16:45 111/71 98 20 16:31 111/71 98 20 16:15 111/71 96 20 16:00 111/71 100 20 15:45 107/68 97 20 15:31 107/68 97 20 15:15 107/68 97 20 15:00 107/68 97 20 14:45 97/61 100 20 14:31 97/61 99 20 14:15 97/61 99 12/10/19 14:08 12/10/19 14:06 97/61 96 12/10/19 14:00 97/61 95 12/10/19 13:45 135/84 97 12/10/19 13:31 135/84 96 12/10/19 13:15 135/84 97 12/10/19 13:11 135/84 12/10/19 13:00 135/84 97 12/10/19 12:45 143/93 98 12/10/19 12:31 143/93 95 12/10/19 12:15 143/93 96 12/10/19 12:00 143/93 97 12/10/19 11:45 112/72 95 12/10/19 11:31 112/72 97 12/10/19 11:18 112/72 97 12/10/19 11:15 112/72 96 12/10/19 11:00 112/72 94 12/10/19 10:45 103/65 95 - Physical Examination General: Other (intubated) Cardiac: Positive: Reg Rate and Rhythm - Labs and Meds Coagulation 12/10/19 Range/Units 21:20 PT 14.0 (12.2-14.9) Sec. INR 1.06 (0.87-1.13) CBC 12/10/19 12/11/19 12/11/19 Range/Units 21:20 03:54 08:36 WBC 14.9 H 11.9 H (4.5-11.0) K/mm3 RBC 3.36 L 3.25 L (3.65-5.03) M/mm3 Hgb 9.6 L 9.6 L (11.8-15.2) gm/dl Hct 30.5 L 29.2 L (35.5-45.6) % Plt Count 291 250 257 (140-440) K/mm3 Comprehensive Metabolic Panel 12/11/19 Range/Units 08:36 Sodium 142 (137-145) mmol/L Potassium 4.2 (3.6-5.0) mmol/L Chloride 105.3 (98-107) mmol/L Carbon Dioxide 27 (22-30) mmol/L BUN 18 (9-20) mg/dL Creatinine 0.5 L (0.8-1.3) mg/dL Glucose 128 H (75-100) mg/dL Calcium 9.4 (8.4-10.2) mg/dL - Allied health notes Allied health notes reviewed: nursing
--- NOTE | 2019-12-11 13:06 | Progress Note ---
Assessment and Plan Acute hypoxemic respiratory failure Bilateral pneumonia, community acquired. Acute congestive heart failure exacerbation. History of cerebrovascular accident. Acute chronic obstructive pulmonary disease exacerbation. Hypertension and hypertensive urgency at presentation. History of arthritis. Oropharyngeal dysphagia Right Lext DVT Pulmonary embolism Heparin infusion is back on Vascular following- for possible EKOS/IVS filter SBTs and see if he better tolerates it with treatment of the pE - continue to monitor renal function, hemodynamics and electrolyte profile - continue to wean oxygen for O2 sats > 90% - continue bronchodilators with pulmonary hygiene per RT - VAP bundle addressed (Aspiration precautions, HOB >40) - continue to wean per pulmonary driven protocols - continue prn analgesia per CPOT score - follow clinically re: fever curves / trend WBC - Avoid delirium (no benzodiazepines if they can be avoided) - Enteral nutrition at goal rate as tolerated - continue accuchecks with glycemic control per SSI for target blood glucose goal of 140-180 mg/dL while critically ill; Avoid hypoglycemia - continue VTE prophylaxis with Heparin - continue stress ulcer prophylaxis with Famotidine - continue mobility protocols for pressure ulcer prophylaxis - continue fall precautions - continue wound care management per RN / WCT - Supportive transfusions as indicated to keep HgB>7g/dL - Continue to monitor neurologic function - Continue chronic home medications as clinically indicated - Continue all supportive care CONDITION: CRITICAL PROGNOSIS: GUARDED CODE STATUS: FULL CODE The high probability of a clinically significant, sudden or life threatening deterioration of the [Respiratory, cardiovascular & neurological] system(s) required my full and direct attention, intervention and personal management. The aggregate critical care time was [33] minutes without overlap. Time includes spent on [x] Data Review and interpretation [x] Patient assessment and monitoring of vital signs [x] Documentation [x] Medication orders and management Subjective Date of service: 12/11/19 Principal diagnosis: Ac hypoxemic resp failure; Pneumonia; PUI COVID-19; CHF; COPD; HTN Interval history: Patient is seen today for: Acute hypoxemic respiratory failure; [place]. Pneumonia (CAP); PUI COVID-19 infection; AE-CHF; AE-COPD; H/O CVA; HTN Seen and examined at bedside; 24 hour events reviewed; nursing and respiratory care staff consulted; no adverse overnight events reported to me; resting peacefully in bed; awake and alert, ETT in place. No asynchrony, Vent 500/12/8/40%. Tolerated 12 hours of PSV 12/6 yesterday On Fentanyl at 1mcg, heparin infusion was on hold secondary to tracheal bleeding Single fever spike. Vascular consulted for IVC filter placement- patient has a PE with extensive right lower extremity VTE Objective Vital Signs - 12hr 12/11/19 12/11/19 12/11/19 01:31 02:00 02:31 Temperature Pulse Rate 80 75 75 Pulse Rate [ Anterior Bilateral Throughout] Pulse Rate [ From Monitor] Respiratory 19 16 17 Rate Respiratory Rate [Anterior Bilateral Throughout] Respiratory Rate [Chest] Blood Pressure 106/69 109/68 109/68 O2 Sat by Pulse 94 95 Oximetry 12/11/19 12/11/19 12/11/19 03:00 03:15 03:31 Temperature 98.9 F Pulse Rate 73 74 Pulse Rate [ Anterior Bilateral Throughout] Pulse Rate [ From Monitor] Respiratory 18 17 Rate Respiratory Rate [Anterior Bilateral Throughout] Respiratory Rate [Chest] Blood Pressure 108/64 108/64 O2 Sat by Pulse 95 96 Oximetry 12/11/19 12/11/19 12/11/19 04:00 04:31 04:37 Temperature Pulse Rate 84 87 Pulse Rate [ 94 H Anterior Bilateral Throughout] Pulse Rate [ From Monitor] Respiratory 16 18 Rate Respiratory 20 Rate [Anterior Bilateral Throughout] Respiratory 16 Rate [Chest] Blood Pressure 110/67 110/67 O2 Sat by Pulse 96 98 Oximetry 12/11/19 12/11/19 12/11/19 05:00 05:30 06:00 Temperature Pulse Rate 88 82 78 Pulse Rate [ Anterior Bilateral Throughout] Pulse Rate [ From Monitor] Respiratory 13 13 17 Rate Respiratory Rate [Anterior Bilateral Throughout] Respiratory Rate [Chest] Blood Pressure 111/81 110/67 108/68 O2 Sat by Pulse 98 98 96 Oximetry 12/11/19 12/11/19 12/11/19 06:31 07:00 07:04 Temperature Pulse Rate 75 74 74 Pulse Rate [ 78 Anterior Bilateral Throughout] Pulse Rate [ From Monitor] Respiratory 13 14 Rate Respiratory 20 Rate [Anterior Bilateral Throughout] Respiratory Rate [Chest] Blood Pressure 108/68 106/72 106/72 O2 Sat by Pulse 97 94 95 Oximetry 12/11/19 12/11/19 12/11/19 07:31 08:00 08:31 Temperature 98.3 F Pulse Rate 72 73 71 Pulse Rate [ Anterior Bilateral Throughout] Pulse Rate [ 94 H From Monitor] Respiratory 16 15 16 Rate Respiratory Rate [Anterior Bilateral Throughout] Respiratory Rate [Chest] Blood Pressure 106/72 103/64 103/64 O2 Sat by Pulse 98 94 96 Oximetry 12/11/19 12/11/19 12/11/19 09:00 09:31 09:50 Temperature Pulse Rate 73 73 76 Pulse Rate [ Anterior Bilateral Throughout] Pulse Rate [ From Monitor] Respiratory 14 16 26 H Rate Respiratory Rate [Anterior Bilateral Throughout] Respiratory Rate [Chest] Blood Pressure 110/73 110/73 113/67 O2 Sat by Pulse 97 95 92 Oximetry 12/11/19 12/11/19 12/11/19 10:00 10:31 11:00 Temperature Pulse Rate 76 79 90 Pulse Rate [ Anterior Bilateral Throughout] Pulse Rate [ From Monitor] Respiratory 14 21 19 Rate Respiratory Rate [Anterior Bilateral Throughout] Respiratory Rate [Chest] Blood Pressure 113/67 113/67 124/76 O2 Sat by Pulse 92 87 Oximetry 12/11/19 12/11/19 12/11/19 11:31 11:48 12:00 Temperature Pulse Rate 89 87 Pulse Rate [ Anterior Bilateral Throughout] Pulse Rate [ 85 From Monitor] Respiratory 18 17 16 Rate Respiratory Rate [Anterior Bilateral Throughout] Respiratory Rate [Chest] Blood Pressure 124/76 124/76 112/76 O2 Sat by Pulse 94 94 92 Oximetry Constitutional: no acute distress, agitated, other (elderly and obese male, normocephalic with mildly increased respiratory effort at rest on MVS) Eyes: non-icteric ENT: oropharynx moist, other (ETT 24 cm JASON) Neck: supple, no JVD Effort: very labored Ascultation: Bilateral: clear, diminished breath sounds, rhonchi (scant; improved RLL air entry also) Percussion: Bilateral: not dull Cardiovascular: irregular rhythm Gastrointestinal: normoactive bowel sounds, soft, non-tender, non-distended Integumentary: normal Extremities: no cyanosis, no edema, pulses normal, no ischemia or petechiae Neurologic: non-focal exam (moves all extremities with extreme agitation), pupi ls equal and round, motor strength normal and, other (sedated lightly) Psychiatric: mood appropriate, affect normal CBC and BMP: 12/12/19 05:53 12/11/19 08:36 ABG, PT/INR, D-dimer: ABG ABG pH 7.439 (7.320-7.450) 12/02/19 12:58 POC ABG pCO2 45.1 mmHg (32.0-48.0) 12/02/19 12:58 ABG pCO2 43.4 mm Hg 11/30/19 04:56 POC ABG pO2 78.1 mmHg (83-108) L 12/02/19 12:58 ABG pO2 56.3 mm Hg (80.0-90.0) L 11/30/19 04:56 POC ABG HCO3 29.9 12/02/19 12:58 ABG O2 Saturation 91.5 % (95.0-99.0) L 11/30/19 04:56 PT/INR, D-dimer PT 14.0 Sec. (12.2-14.9) 12/10/19 21:20 INR 1.06 (0.87-1.13) 12/10/19 21:20 Abnormal lab findings: Abnormal Labs 11/24/19 11/24/19 11/24/19 02:53 02:53 03:45 WBC 14.3 H RBC Hgb Hct MCHC RDW 17.2 H Lymph % (Auto) [place] % (Auto) [place] # Eos # Seg Neutrophils % Seg Neuts % (Manual) Lymphocytes % (Manual) Monocytes % (Manual) Basophils % (Manual) Seg Neutrophils # Seg Neutrophils # Man 8.3 H Monocytes # (Manual) 0.9 H Basophils # (Manual) Heparin Anti-Xa Level ABG pH 7.313 L POC ABG pO2 ABG pO2 102.8 H ABG HCO3 ABG O2 Saturation ABG Base Excess -2.9 L ABG Hemoglobin ABG Oxyhemoglobin Oxyhemoglobin 93.9 L Sodium Potassium Chloride BUN Creatinine Glucose 195 H POC Glucose Lactic Acid Calcium Phosphorus Magnesium AST ALT Lactate Dehydrogenase CK-MB (CK-2) 4.3 H C-Reactive Protein NT-Pro-B Natriuret Pep 1181 H Total Protein Albumin Urine WBC (Auto) 11/24/19 11/24/19 11/24/19 04:53 04:53 10:37 WBC RBC Hgb Hct MCHC RDW Lymph % (Auto) [place] % (Auto) [place] # Eos # Seg Neutrophils % Seg Neuts % (Manual) Lymphocytes % (Manual) Monocytes % (Manual) Basophils % (Manual) Seg Neutrophils # Seg Neutrophils # Man Monocytes # (Manual) Basophils # (Manual) Heparin Anti-Xa Level ABG pH POC ABG pO2 ABG pO2 ABG HCO3 ABG O2 Saturation ABG Base Excess ABG Hemoglobin ABG Oxyhemoglobin Oxyhemoglobin Sodium Potassium Chloride BUN Creatinine Glucose 162 H POC Glucose Lactic Acid 2.40 H* 2.50 H* Calcium Phosphorus Magnesium AST ALT Lactate Dehydrogenase 240 H CK-MB (CK-2) C-Reactive Protein NT-Pro-B Natriuret Pep Total Protein Albumin Urine WBC (Auto) 11/24/19 11/24/19 11/24/19 12:21 14:50 19:54 WBC RBC Hgb Hct MCHC RDW Lymph % (Auto) [place] % (Auto) [place] # Eos # Seg Neutrophils % Seg Neuts % (Manual) Lymphocytes % (Manual) Monocytes % (Manual) Basophils % (Manual) Seg Neutrophils # Seg Neutrophils # Man Monocytes # (Manual) Basophils # (Manual) Heparin Anti-Xa Level ABG pH POC ABG pO2 ABG pO2 ABG HCO3 ABG O2 Saturation ABG Base Excess ABG Hemoglobin ABG Oxyhemoglobin Oxyhemoglobin Sodium Potassium Chloride BUN Creatinine Glucose POC Glucose 145 H 143 H 124 H Lactic Acid Calcium Phosphorus Magnesium AST ALT Lactate Dehydrogenase CK-MB (CK-2) C-Reactive Protein NT-Pro-B Natriuret Pep Total Protein Albumin Urine WBC (Auto) 11/25/19 11/25/19 11/25/19 00:18 03:18 05:11 WBC 13.7 H RBC Hgb Hct MCHC RDW 17.1 H Lymph % (Auto) 10.8 L [place] % (Auto) 8.7 H [place] # 1.2 H Eos # Seg Neutrophils % 80.2 H Seg Neuts % (Manual) Lymphocytes % (Manual) Monocytes % (Manual) Basophils % (Manual) Seg Neutrophils # 11.0 H Seg Neutrophils # Man Monocytes # (Manual) Basophils # (Manual) Heparin Anti-Xa Level ABG pH 7.333 L POC ABG pO2 ABG pO2 61.2 L ABG HCO3 ABG O2 Saturation 90.2 L ABG Base Excess ABG Hemoglobin 13.7 L ABG Oxyhemoglobin Oxyhemoglobin 88.2 L Sodium Potassium Chloride BUN Creatinine Glucose POC Glucose 109 H Lactic Acid Calcium Phosphorus Magnesium AST ALT Lactate Dehydrogenase CK-MB (CK-2) C-Reactive Protein NT-Pro-B Natriuret Pep Total Protein Albumin Urine WBC (Auto) 11/25/19 11/25/19 11/26/19 05:11 11:40 03:12 WBC RBC Hgb Hct MCHC RDW Lymph % (Auto) [place] % (Auto) [place] # Eos # Seg Neutrophils % Seg Neuts % (Manual) Lymphocytes % (Manual) Monocytes % (Manual) Basophils % (Manual) Seg Neutrophils # Seg Neutrophils # Man Monocytes # (Manual) Basophils # (Manual) Heparin Anti-Xa Level ABG pH POC ABG pO2 ABG pO2 155.1 H ABG HCO3 27.8 H ABG O2 Saturation ABG Base Excess ABG Hemoglobin 12.2 L ABG Oxyhemoglobin Oxyhemoglobin Sodium Potassium Chloride BUN 23 H Creatinine Glucose 110 H POC Glucose 108 H Lactic Acid Calcium Phosphorus Magnesium AST ALT Lactate Dehydrogenase CK-MB (CK-2) C-Reactive Protein NT-Pro-B Natriuret Pep Total Protein Albumin Urine WBC (Auto) 11/26/19 11/26/19 11/26/19 06:17 10:43 10:43 WBC 11.4 H RBC Hgb Hct MCHC RDW 17.1 H Lymph % (Auto) [place] % (Auto) [place] # Eos # Seg Neutrophils % Seg Neuts % (Manual) Lymphocytes % (Manual) Monocytes % (Manual) Basophils % (Manual) Seg Neutrophils # Seg Neutrophils # Man Monocytes # (Manual) Basophils # (Manual) Heparin Anti-Xa Level ABG pH POC ABG pO2 ABG pO2 ABG HCO3 ABG O2 Saturation ABG Base Excess ABG Hemoglobin ABG Oxyhemoglobin Oxyhemoglobin Sodium Potassium Chloride BUN 29 H Creatinine Glucose POC Glucose 107 H Lactic Acid Calcium Phosphorus Magnesium AST ALT Lactate Dehydrogenase CK-MB (CK-2) C-Reactive Protein NT-Pro-B Natriuret Pep Total Protein Albumin Urine WBC (Auto) 11/26/19 11/27/19 11/27/19 17:11 01:53 04:11 WBC RBC Hgb Hct MCHC RDW Lymph % (Auto) [place] % (Auto) [place] # Eos # Seg Neutrophils % Seg Neuts % (Manual) Lymphocytes % (Manual) Monocytes % (Manual) Basophils % (Manual) Seg Neutrophils # Seg Neutrophils # Man Monocytes # (Manual) Basophils # (Manual) Heparin Anti-Xa Level ABG pH POC ABG pO2 ABG pO2 ABG HCO3 29.2 H ABG O2 Saturation ABG Base Excess 3.4 H ABG Hemoglobin 13.3 L ABG Oxyhemoglobin Oxyhemoglobin 94.5 L Sodium Potassium Chloride BUN Creatinine Glucose POC Glucose 113 H 108 H Lactic Acid Calcium Phosphorus Magnesium AST ALT Lactate Dehydrogenase CK-MB (CK-2) C-Reactive Protein NT-Pro-B Natriuret Pep Total Protein Albumin Urine WBC (Auto) 11/27/19 11/28/19 11/28/19 05:27 05:00 05:25 WBC RBC Hgb Hct MCHC RDW Lymph % (Auto) [place] % (Auto) [place] # Eos # Seg Neutrophils % Seg Neuts % (Manual) Lymphocytes % (Manual) Monocytes % (Manual) Basophils % (Manual) Seg Neutrophils # Seg Neutrophils # Man Monocytes # (Manual) Basophils # (Manual) Heparin Anti-Xa Level ABG pH POC ABG pO2 68.1 L ABG pO2 ABG HCO3 ABG O2 Saturation ABG Base Excess ABG Hemoglobin ABG Oxyhemoglobin 91.2 L Oxyhemoglobin Sodium Potassium Chloride BUN Creatinine Glucose POC Glucose 111 H 110 H Lactic Acid Calcium Phosphorus Magnesium AST ALT Lactate Dehydrogenase CK-MB (CK-2) C-Reactive Protein NT-Pro-B Natriuret Pep Total Protein Albumin Urine WBC (Auto) 11/28/19 11/28/19 11/28/19 12:08 13:47 13:47 WBC 11.3 H RBC Hgb Hct MCHC RDW 16.1 H Lymph % (Auto) [place] % (Auto) 9.9 H [place] # 1.1 H Eos # Seg Neutrophils % 71.4 H Seg Neuts % (Manual) Lymphocytes % (Manual) Monocytes % (Manual) Basophils % (Manual) Seg Neutrophils # 8.1 H Seg Neutrophils # Man Monocytes # (Manual) Basophils # (Manual) Heparin Anti-Xa Level ABG pH POC ABG pO2 ABG pO2 ABG HCO3 ABG O2 Saturation ABG Base Excess ABG Hemoglobin ABG Oxyhemoglobin Oxyhemoglobin Sodium Potassium Chloride BUN 23 H Creatinine Glucose 123 H POC Glucose 112 H Lactic Acid Calcium Phosphorus Magnesium AST ALT Lactate Dehydrogenase CK-MB (CK-2) C-Reactive Protein NT-Pro-B Natriuret Pep Total Protein Albumin 3.7 L Urine WBC (Auto) 11/28/19 11/29/19 11/29/19 17:26 03:55 17:04 WBC RBC Hgb Hct MCHC RDW Lymph % (Auto) [place] % (Auto) [place] # Eos # Seg Neutrophils % Seg Neuts % (Manual) Lymphocytes % (Manual) Monocytes % (Manual) Basophils % (Manual) Seg Neutrophils # Seg Neutrophils # Man Monocytes # (Manual) Basophils # (Manual) Heparin Anti-Xa Level ABG pH POC ABG pO2 ABG pO2 65.7 L ABG HCO3 28.3 H ABG O2 Saturation 93.9 L ABG Base Excess 3.6 H ABG Hemoglobin 13.3 L ABG Oxyhemoglobin Oxyhemoglobin 91.5 L Sodium Potassium Chloride BUN Creatinine Glucose POC Glucose 123 H 119 H Lactic Acid Calcium Phosphorus Magnesium AST ALT Lactate Dehydrogenase CK-MB (CK-2) C-Reactive Protein NT-Pro-B Natriuret Pep Total Protein Albumin Urine WBC (Auto) 11/30/19 11/30/19 11/30/19 04:17 04:17 04:56 WBC 13.4 H RBC Hgb Hct MCHC RDW 15.6 H Lymph % (Auto) [place] % (Auto) [place] # Eos # Seg Neutrophils % Seg Neuts % (Manual) Lymphocytes % (Manual) Monocytes % (Manual) Basophils % (Manual) Seg Neutrophils # Seg Neutrophils # Man Monocytes # (Manual) Basophils # (Manual) Heparin Anti-Xa Level ABG pH POC ABG pO2 ABG pO2 56.3 L ABG HCO3 29.3 H ABG O2 Saturation 91.5 L ABG Base Excess 4.7 H ABG Hemoglobin 12.1 L ABG Oxyhemoglobin Oxyhemoglobin 89.2 L Sodium 147 H Potassium Chloride BUN 30 H Creatinine Glucose 124 H POC Glucose Lactic Acid Calcium Phosphorus Magnesium AST ALT Lactate Dehydrogenase CK-MB (CK-2) C-Reactive Protein NT-Pro-B Natriuret Pep Total Protein Albumin 3.8 L Urine WBC (Auto) 11/30/19 11/30/19 11/30/19 05:51 11:54 18:17 WBC RBC Hgb Hct MCHC RDW Lymph % (Auto) [place] % (Auto) [place] # Eos # Seg Neutrophils % Seg Neuts % (Manual) Lymphocytes % (Manual) Monocytes % (Manual) Basophils % (Manual) Seg Neutrophils # Seg Neutrophils # Man Monocytes # (Manual) Basophils # (Manual) Heparin Anti-Xa Level ABG pH POC ABG pO2 ABG pO2 ABG HCO3 ABG O2 Saturation ABG Base Excess ABG Hemoglobin ABG Oxyhemoglobin Oxyhemoglobin Sodium Potassium Chloride BUN Creatinine Glucose POC Glucose 127 H 115 H 143 H Lactic Acid Calcium Phosphorus Magnesium AST ALT Lactate Dehydrogenase CK-MB (CK-2) C-Reactive Protein NT-Pro-B Natriuret Pep Total Protein Albumin Urine WBC (Auto) 12/01/19 12/01/19 12/01/19 01:18 05:22 12:16 WBC RBC Hgb Hct MCHC RDW Lymph % (Auto) [place] % (Auto) [place] # Eos # Seg Neutrophils % Seg Neuts % (Manual) Lymphocytes % (Manual) Monocytes % (Manual) Basophils % (Manual) Seg Neutrophils # Seg Neutrophils # Man Monocytes # (Manual) Basophils # (Manual) Heparin Anti-Xa Level ABG pH POC ABG pO2 ABG pO2 ABG HCO3 ABG O2 Saturation ABG Base Excess ABG Hemoglobin ABG Oxyhemoglobin Oxyhemoglobin Sodium Potassium 3.5 L Chloride 107.8 H BUN 37 H Creatinine Glucose 157 H POC Glucose 118 H 148 H Lactic Acid Calcium 8.2 L D Phosphorus Magnesium AST 48 H ALT 60 H Lactate Dehydrogenase 194 H CK-MB (CK-2) C-Reactive Protein 8.50 H NT-Pro-B Natriuret Pep Total Protein 5.5 L Albumin 2.8 L Urine WBC (Auto) 12/01/19 12/02/19 12/02/19 18:04 00:05 05:16 WBC 11.4 H RBC Hgb Hct MCHC RDW 15.9 H Lymph % (Auto) [place] % (Auto) 9.9 H [place] # 1.1 H Eos # Seg Neutrophils % 70.3 H Seg Neuts % (Manual) Lymphocytes % (Manual) Monocytes % (Manual) Basophils % (Manual) Seg Neutrophils # 8.0 H Seg Neutrophils # Man Monocytes # (Manual) Basophils # (Manual) Heparin Anti-Xa Level ABG pH POC ABG pO2 ABG pO2 ABG HCO3 ABG O2 Saturation ABG Base Excess ABG Hemoglobin ABG Oxyhemoglobin Oxyhemoglobin Sodium Potassium Chloride BUN Creatinine Glucose POC Glucose 143 H 107 H Lactic Acid Calcium Phosphorus Magnesium AST ALT Lactate Dehydrogenase CK-MB (CK-2) C-Reactive Protein NT-Pro-B Natriuret Pep Total Protein Albumin Urine WBC (Auto) 12/02/19 12/02/19 12/02/19 05:16 06:03 11:52 WBC RBC Hgb Hct MCHC RDW Lymph % (Auto) [place] % (Auto) [place] # Eos # Seg Neutrophils % Seg Neuts % (Manual) Lymphocytes % (Manual) Monocytes % (Manual) Basophils % (Manual) Seg Neutrophils # Seg Neutrophils # Man Monocytes # (Manual) Basophils # (Manual) Heparin Anti-Xa Level ABG pH POC ABG pO2 ABG pO2 ABG HCO3 ABG O2 Saturation ABG Base Excess ABG Hemoglobin ABG Oxyhemoglobin Oxyhemoglobin Sodium 146 H Potassium Chloride BUN 28 H Creatinine Glucose 123 H POC Glucose 110 H 152 H Lactic Acid Calcium Phosphorus Magnesium AST ALT Lactate Dehydrogenase CK-MB (CK-2) C-Reactive Protein NT-Pro-B Natriuret Pep Total Protein Albumin Urine WBC (Auto) 12/02/19 12/02/19 12/02/19 12:58 17:58 23:36 WBC RBC Hgb Hct MCHC RDW Lymph % (Auto) [place] % (Auto) [place] # Eos # Seg Neutrophils % Seg Neuts % (Manual) Lymphocytes % (Manual) Monocytes % (Manual) Basophils % (Manual) Seg Neutrophils # Seg Neutrophils # Man Monocytes # (Manual) Basophils # (Manual) Heparin Anti-Xa Level ABG pH POC ABG pO2 78.1 L ABG pO2 ABG HCO3 ABG O2 Saturation ABG Base Excess ABG Hemoglobin ABG Oxyhemoglobin Oxyhemoglobin Sodium Potassium Chloride BUN Creatinine Glucose POC Glucose 120 H 123 H Lactic Acid Calcium Phosphorus Magnesium AST ALT Lactate Dehydrogenase CK-MB (CK-2) C-Reactive Protein NT-Pro-B Natriuret Pep Total Protein Albumin Urine WBC (Auto) 12/03/19 12/03/19 12/03/19 06:03 06:14 11:46 WBC RBC Hgb Hct MCHC RDW Lymph % (Auto) [place] % (Auto) [place] # Eos # Seg Neutrophils % Seg Neuts % (Manual) Lymphocytes % (Manual) Monocytes % (Manual) Basophils % (Manual) Seg Neutrophils # Seg Neutrophils # Man Monocytes # (Manual) Basophils # (Manual) Heparin Anti-Xa Level ABG pH POC ABG pO2 ABG pO2 ABG HCO3 ABG O2 Saturation ABG Base Excess ABG Hemoglobin ABG Oxyhemoglobin Oxyhemoglobin Sodium Potassium Chloride BUN Creatinine Glucose POC Glucose 142 H 130 H Lactic Acid Calcium Phosphorus Magnesium AST ALT Lactate Dehydrogenase CK-MB (CK-2) C-Reactive Protein NT-Pro-B Natriuret Pep Total Protein Albumin Urine WBC (Auto) 8.0 H 12/03/19 12/03/19 12/04/19 15:50 17:39 00:04 WBC RBC Hgb Hct MCHC RDW Lymph % (Auto) [place] % (Auto) [place] # Eos # Seg Neutrophils % Seg Neuts % (Manual) Lymphocytes % (Manual) Monocytes % (Manual) Basophils % (Manual) Seg Neutrophils # Seg Neutrophils # Man Monocytes # (Manual) Basophils # (Manual) Heparin Anti-Xa Level ABG pH POC ABG pO2 ABG pO2 ABG HCO3 ABG O2 Saturation ABG Base Excess ABG Hemoglobin ABG Oxyhemoglobin Oxyhemoglobin Sodium Potassium Chloride BUN Creatinine Glucose POC Glucose 146 H 133 H Lactic Acid Calcium Phosphorus 2.40 L Magnesium AST ALT Lactate Dehydrogenase CK-MB (CK-2) C-Reactive Protein NT-Pro-B Natriuret Pep Total Protein Albumin Urine WBC (Auto) 12/04/19 12/04/19 12/04/19 03:58 03:58 05:22 WBC 12.5 H RBC Hgb 11.2 L Hct 35.2 L MCHC RDW 16.0 H Lymph % (Auto) [place] % (Auto) 9.6 H [place] # 1.2 H Eos # 0.5 H Seg Neutrophils % Seg Neuts % (Manual) Lymphocytes % (Manual) Monocytes % (Manual) Basophils % (Manual) Seg Neutrophils # 8.6 H Seg Neutrophils # Man Monocytes # (Manual) Basophils # (Manual) Heparin Anti-Xa Level ABG pH POC ABG pO2 ABG pO2 ABG HCO3 ABG O2 Saturation ABG Base Excess ABG Hemoglobin ABG Oxyhemoglobin Oxyhemoglobin Sodium 146 H Potassium Chloride 108.6 H BUN 30 H Creatinine 0.7 L Glucose 121 H POC Glucose 132 H Lactic Acid Calcium Phosphorus Magnesium AST ALT Lactate Dehydrogenase CK-MB (CK-2) C-Reactive Protein NT-Pro-B Natriuret Pep Total Protein Albumin Urine WBC (Auto) 12/04/19 12/04/19 12/05/19 13:26 18:43 00:19 WBC RBC Hgb Hct MCHC RDW Lymph % (Auto) [place] % (Auto) [place] # Eos # Seg Neutrophils % Seg Neuts % (Manual) Lymphocytes % (Manual) Monocytes % (Manual) Basophils % (Manual) Seg Neutrophils # Seg Neutrophils # Man Monocytes # (Manual) Basophils # (Manual) Heparin Anti-Xa Level ABG pH POC ABG pO2 ABG pO2 ABG HCO3 ABG O2 Saturation ABG Base Excess ABG Hemoglobin ABG Oxyhemoglobin Oxyhemoglobin Sodium Potassium Chloride BUN Creatinine Glucose POC Glucose 185 H 156 H 150 H Lactic Acid Calcium Phosphorus Magnesium AST ALT Lactate Dehydrogenase CK-MB (CK-2) C-Reactive Protein NT-Pro-B Natriuret Pep Total Protein Albumin Urine WBC (Auto) 12/05/19 12/05/19 12/05/19 03:37 03:37 05:14 WBC 16.3 H RBC Hgb 11.4 L Hct MCHC RDW 15.6 H Lymph % (Auto) 9.9 L [place] % (Auto) 9.7 H [place] # 1.6 H Eos # Seg Neutrophils % 78.0 H Seg Neuts % (Manual) Lymphocytes % (Manual) Monocytes % (Manual) Basophils % (Manual) Seg Neutrophils # 12.7 H Seg Neutrophils # Man Monocytes # (Manual) Basophils # (Manual) Heparin Anti-Xa Level ABG pH POC ABG pO2 ABG pO2 ABG HCO3 ABG O2 Saturation ABG Base Excess ABG Hemoglobin ABG Oxyhemoglobin Oxyhemoglobin Sodium 146 H Potassium Chloride 107.2 H BUN 27 H Creatinine 0.7 L Glucose 171 H POC Glucose 168 H Lactic Acid Calcium Phosphorus Magnesium AST ALT Lactate Dehydrogenase CK-MB (CK-2) C-Reactive Protein NT-Pro-B Natriuret Pep Total Protein Albumin Urine WBC (Auto) 12/05/19 12/05/19 12/05/19 12:31 18:10 23:58 WBC RBC Hgb Hct MCHC RDW Lymph % (Auto) [place] % (Auto) [place] # Eos # Seg Neutrophils % Seg Neuts % (Manual) Lymphocytes % (Manual) Monocytes % (Manual) Basophils % (Manual) Seg Neutrophils # Seg Neutrophils # Man Monocytes # (Manual) Basophils # (Manual) Heparin Anti-Xa Level ABG pH POC ABG pO2 ABG pO2 ABG HCO3 ABG O2 Saturation ABG Base Excess ABG Hemoglobin ABG Oxyhemoglobin Oxyhemoglobin Sodium Potassium Chloride BUN Creatinine Glucose POC Glucose 159 H 198 H 115 H Lactic Acid Calcium Phosphorus Magnesium AST ALT Lactate Dehydrogenase CK-MB (CK-2) C-Reactive Protein NT-Pro-B Natriuret Pep Total Protein Albumin Urine WBC (Auto) 12/06/19 12/06/19 12/06/19 05:24 05:24 05:25 WBC 14.9 H RBC Hgb 10.8 L Hct 34.0 L MCHC RDW 15.6 H Lymph % (Auto) 10.7 L [place] % (Auto) 8.3 H [place] # 1.2 H Eos # Seg Neutrophils % 78.7 H Seg Neuts % (Manual) Lymphocytes % (Manual) Monocytes % (Manual) Basophils % (Manual) Seg Neutrophils # 11.7 H Seg Neutrophils # Man Monocytes # (Manual) Basophils # (Manual) Heparin Anti-Xa Level ABG pH POC ABG pO2 ABG pO2 ABG HCO3 ABG O2 Saturation ABG Base Excess ABG Hemoglobin ABG Oxyhemoglobin Oxyhemoglobin Sodium 148 H Potassium 5.1 H Chloride 107.6 H BUN 27 H Creatinine 0.7 L Glucose 155 H POC Glucose 157 H Lactic Acid Calcium Phosphorus Magnesium AST ALT Lactate Dehydrogenase CK-MB (CK-2) C-Reactive Protein NT-Pro-B Natriuret Pep Total Protein Albumin Urine WBC (Auto) 12/07/19 12/07/19 12/07/19 00:13 05:34 11:33 WBC RBC Hgb Hct MCHC RDW Lymph % (Auto) [place] % (Auto) [place] # Eos # Seg Neutrophils % Seg Neuts % (Manual) Lymphocytes % (Manual) Monocytes % (Manual) Basophils % (Manual) Seg Neutrophils # Seg Neutrophils # Man Monocytes # (Manual) Basophils # (Manual) Heparin Anti-Xa Level ABG pH POC ABG pO2 ABG pO2 ABG HCO3 ABG O2 Saturation ABG Base Excess ABG Hemoglobin ABG Oxyhemoglobin Oxyhemoglobin Sodium Potassium Chloride BUN Creatinine Glucose POC Glucose 142 H 111 H 169 H Lactic Acid Calcium Phosphorus Magnesium AST ALT Lactate Dehydrogenase CK-MB (CK-2) C-Reactive Protein NT-Pro-B Natriuret Pep Total Protein Albumin Urine WBC (Auto) 12/07/19 12/07/19 12/07/19 12:41 13:25 18:19 WBC 12.4 H RBC 3.53 L Hgb 10.2 L Hct 32.1 L MCHC RDW 15.3 H Lymph % (Auto) 10.6 L [place] % (Auto) 7.8 H [place] # 1.0 H Eos # Seg Neutrophils % 77.6 H Seg Neuts % (Manual) Lymphocytes % (Manual) Monocytes % (Manual) Basophils % (Manual) Seg Neutrophils # 9.6 H Seg Neutrophils # Man Monocytes # (Manual) Basophils # (Manual) Heparin Anti-Xa Level ABG pH POC ABG pO2 ABG pO2 ABG HCO3 ABG O2 Saturation ABG Base Excess ABG Hemoglobin ABG Oxyhemoglobin Oxyhemoglobin Sodium 149 H Potassium Chloride 108.4 H BUN 26 H Creatinine 0.6 L Glucose 149 H POC Glucose 164 H Lactic Acid Calcium Phosphorus Magnesium 2.60 H AST 121 H ALT 145 H Lactate Dehydrogenase CK-MB (CK-2) C-Reactive Protein NT-Pro-B Natriuret Pep Total Protein Albumin 2.6 L Urine WBC (Auto) 12/07/19 12/08/19 12/08/19 22:25 00:02 03:55 WBC 13.3 H RBC 3.40 L Hgb 9.7 L Hct 30.8 L MCHC 31 L RDW 15.5 H Lymph % (Auto) [place] % (Auto) 8.1 H [place] # 1.1 H Eos # Seg Neutrophils % 73.0 H Seg Neuts % (Manual) Lymphocytes % (Manual) Monocytes % (Manual) Basophils % (Manual) Seg Neutrophils # 9.7 H Seg Neutrophils # Man Monocytes # (Manual) Basophils # (Manual) Heparin Anti-Xa Level 0.12 L ABG pH POC ABG pO2 ABG pO2 ABG HCO3 ABG O2 Saturation ABG Base Excess ABG Hemoglobin ABG Oxyhemoglobin Oxyhemoglobin Sodium Potassium Chloride BUN Creatinine Glucose POC Glucose 151 H Lactic Acid Calcium Phosphorus Magnesium AST ALT Lactate Dehydrogenase CK-MB (CK-2) C-Reactive Protein NT-Pro-B Natriuret Pep Total Protein Albumin Urine WBC (Auto) 12/08/19 12/08/19 12/08/19 03:55 05:21 06:01 WBC RBC Hgb Hct MCHC RDW Lymph % (Auto) [place] % (Auto) [place] # Eos # Seg Neutrophils % Seg Neuts % (Manual) Lymphocytes % (Manual) Monocytes % (Manual) Basophils % (Manual) Seg Neutrophils # Seg Neutrophils # Man Monocytes # (Manual) Basophils # (Manual) Heparin Anti-Xa Level 0.20 L ABG pH POC ABG pO2 ABG pO2 ABG HCO3 ABG O2 Saturation ABG Base Excess ABG Hemoglobin ABG Oxyhemoglobin Oxyhemoglobin Sodium 149 H Potassium Chloride 108.0 H BUN 28 H Creatinine 0.6 L Glucose 144 H POC Glucose 143 H Lactic Acid Calcium Phosphorus Magnesium AST 98 H ALT 145 H Lactate Dehydrogenase CK-MB (CK-2) C-Reactive Protein NT-Pro-B Natriuret Pep Total Protein 6.0 L Albumin 2.4 L Urine WBC (Auto) 12/08/19 12/08/19 12/08/19 12:08 18:11 23:53 WBC RBC Hgb Hct MCHC RDW Lymph % (Auto) [place] % (Auto) [place] # Eos # Seg Neutrophils % Seg Neuts % (Manual) Lymphocytes % (Manual) Monocytes % (Manual) Basophils % (Manual) Seg Neutrophils # Seg Neutrophils # Man Monocytes # (Manual) Basophils # (Manual) Heparin Anti-Xa Level ABG pH POC ABG pO2 ABG pO2 ABG HCO3 ABG O2 Saturation ABG Base Excess ABG Hemoglobin ABG Oxyhemoglobin Oxyhemoglobin Sodium Potassium Chloride BUN Creatinine Glucose POC Glucose 172 H 122 H 162 H Lactic Acid Calcium Phosphorus Magnesium AST ALT Lactate Dehydrogenase CK-MB (CK-2) C-Reactive Protein NT-Pro-B Natriuret Pep Total Protein Albumin Urine WBC (Auto) 12/09/19 12/09/19 12/09/19 04:03 04:03 05:53 WBC RBC Hgb 9.1 L Hct 28.9 L MCHC RDW Lymph % (Auto) [place] % (Auto) [place] # Eos # Seg Neutrophils % Seg Neuts % (Manual) Lymphocytes % (Manual) Monocytes % (Manual) Basophils % (Manual) Seg Neutrophils # Seg Neutrophils # Man Monocytes # (Manual) Basophils # (Manual) Heparin Anti-Xa Level 0.15 L ABG pH POC ABG pO2 ABG pO2 ABG HCO3 ABG O2 Saturation ABG Base Excess ABG Hemoglobin ABG Oxyhemoglobin Oxyhemoglobin Sodium Potassium Chloride BUN Creatinine Glucose POC Glucose 124 H Lactic Acid Calcium Phosphorus Magnesium AST ALT Lactate Dehydrogenase CK-MB (CK-2) C-Reactive Protein NT-Pro-B Natriuret Pep Total Protein Albumin Urine WBC (Auto) 12/09/19 12/09/19 12/10/19 09:43 12:41 00:13 WBC RBC Hgb Hct MCHC RDW Lymph % (Auto) [place] % (Auto) [place] # Eos # Seg Neutrophils % Seg Neuts % (Manual) Lymphocytes % (Manual) Monocytes % (Manual) Basophils % (Manual) Seg Neutrophils # Seg Neutrophils # Man Monocytes # (Manual) Basophils # (Manual) Heparin Anti-Xa Level ABG pH POC ABG pO2 ABG pO2 ABG HCO3 ABG O2 Saturation ABG Base Excess ABG Hemoglobin ABG Oxyhemoglobin Oxyhemoglobin Sodium Potassium Chloride BUN 25 H Creatinine 0.6 L Glucose 131 H POC Glucose 109 H 120 H Lactic Acid Calcium Phosphorus Magnesium AST ALT Lactate Dehydrogenase CK-MB (CK-2) C-Reactive Protein NT-Pro-B Natriuret Pep Total Protein Albumin Urine WBC (Auto) 12/10/19 12/10/19 12/10/19 04:14 04:14 12:00 WBC 13.3 H RBC 3.34 L Hgb 9.6 L Hct 30.4 L MCHC RDW 15.4 H Lymph % (Auto) [place] % (Auto) [place] # Eos # Seg Neutrophils % Seg Neuts % (Manual) 75.0 H Lymphocytes % (Manual) 13.0 L Monocytes % (Manual) 8.0 H Basophils % (Manual) 2.0 H Seg Neutrophils # Seg Neutrophils # Man 10.0 H Monocytes # (Manual) 1.1 H Basophils # (Manual) 0.3 H Heparin Anti-Xa Level ABG pH POC ABG pO2 ABG pO2 ABG HCO3 ABG O2 Saturation ABG Base Excess ABG Hemoglobin ABG Oxyhemoglobin Oxyhemoglobin Sodium 147 H Potassium Chloride 108.3 H BUN 21 H Creatinine 0.6 L Glucose 104 H POC Glucose 133 H Lactic Acid Calcium Phosphorus Magnesium AST ALT Lactate Dehydrogenase CK-MB (CK-2) C-Reactive Protein NT-Pro-B Natriuret Pep Total Protein Albumin Urine WBC (Auto) 12/10/19 12/10/19 12/11/19 18:44 21:20 00:08 WBC 14.9 H RBC 3.36 L Hgb 9.6 L Hct 30.5 L MCHC RDW 15.4 H Lymph % (Auto) [place] % (Auto) [place] # Eos # Seg Neutrophils % Seg Neuts % (Manual) Lymphocytes % (Manual) Monocytes % (Manual) Basophils % (Manual) Seg Neutrophils # Seg Neutrophils # Man Monocytes # (Manual) Basophils # (Manual) Heparin Anti-Xa Level ABG pH POC ABG pO2 ABG pO2 ABG HCO3 ABG O2 Saturation ABG Base Excess ABG Hemoglobin ABG Oxyhemoglobin Oxyhemoglobin Sodium Potassium Chloride BUN Creatinine Glucose POC Glucose 119 H 134 H Lactic Acid Calcium Phosphorus Magnesium AST ALT Lactate Dehydrogenase CK-MB (CK-2) C-Reactive Protein NT-Pro-B Natriuret Pep Total Protein Albumin Urine WBC (Auto) 12/11/19 12/11/19 12/11/19 03:54 07:28 08:36 WBC 11.9 H RBC 3.25 L Hgb 9.6 L Hct 29.2 L MCHC RDW 15.7 H Lymph % (Auto) [place] % (Auto) [place] # Eos # Seg Neutrophils % Seg Neuts % (Manual) Lymphocytes % (Manual) Monocytes % (Manual) Basophils % (Manual) Seg Neutrophils # Seg Neutrophils # Man Monocytes # (Manual) Basophils # (Manual) Heparin Anti-Xa Level 0.10 L 0.16 L ABG pH POC ABG pO2 ABG pO2 ABG HCO3 ABG O2 Saturation ABG Base Excess ABG Hemoglobin ABG Oxyhemoglobin Oxyhemoglobin Sodium Potassium Chloride BUN Creatinine Glucose POC Glucose Lactic Acid Calcium Phosphorus Magnesium AST ALT Lactate Dehydrogenase CK-MB (CK-2) C-Reactive Protein NT-Pro-B Natriuret Pep Total Protein Albumin Urine WBC (Auto) 12/11/19 12/11/19 08:36 11:45 WBC RBC Hgb Hct MCHC RDW Lymph % (Auto) [place] % (Auto) [place] # Eos # Seg Neutrophils % Seg Neuts % (Manual) Lymphocytes % (Manual) Monocytes % (Manual) Basophils % (Manual) Seg Neutrophils # Seg Neutrophils # Man Monocytes # (Manual) Basophils # (Manual) Heparin Anti-Xa Level ABG pH POC ABG pO2 ABG pO2 ABG HCO3 ABG O2 Saturation ABG Base Excess ABG Hemoglobin ABG Oxyhemoglobin Oxyhemoglobin Sodium Potassium Chloride BUN Creatinine 0.5 L Glucose 128 H POC Glucose 136 H Lactic Acid Calcium Phosphorus Magnesium AST ALT Lactate Dehydrogenase CK-MB (CK-2) C-Reactive Protein NT-Pro-B Natriuret Pep Total Protein Albumin Urine WBC (Auto) Allied health notes reviewed: nursing
--- NOTE | 2019-12-11 14:11 | Progress Note ---
Assessment and Plan -Acute LLL PE -Acute RLE DVT -Persistent fevers; secondary to sepsis and acute PE/DVT -Severe sepsis; secondary to bilateral pneumonia, persistent fevers -Acute hypoxemic respiratory failure, on vent unable to wean -Bilateral pneumonia, community acquired, -Aspiration Pneumonia -Sustained SVT, on amiodarone -Acute on chronic systolic congestive heart failure -History of cerebrovascular accident. -Tobacco use disorder -Alcohol abuse with DT -Acute chronic obstructive pulmonary disease exacerbation. -Hypertension and hypertensive urgency at presentation. -History of arthritis. -Paroxysmal atrial fibrillation -Leukocytosis with possible sepsis. -Lactic acidosis. -Bleeding from ET tube -Oropharyngeal dysphagia -S/P Knee surgery -History of peptic Ulcer Surgery -DVT prophylaxis COVID-19 test; 11/24/2019; negative 11/26/2019; negative Plan Continue ventilatory support, Wean as tolerated and extubate., Pulmonary critical care following Completed ceftriaxone and azithromycin for total 5 days per ID ID now started cefepime and Vanco Continue anti-failure medications, cardiology following cont Steroids, Continue diuresis as needed Aspiration precautions Continue amiodarone and metoprolol for suppression of paroxysmal atrial fibrillation. Anticoagulation currently is with intravenous heparin - was brefly on hold for bleeding from ET tube DVT/GI prophy Heparin/Protonix Plan of care reviewed with the patient's nurse Closely monitor the patient and adjust management as needed The high probability of a clinically significant, sudden or life threatening deterioration of the [Respiratory, cardiovascular & neurological] system(s) required my full and direct attention, intervention and personal management. The aggregate critical care time was [33] minutes without overlap. Time includes spent on [x] Data Review and interpretation [x] Patient assessment and monitoring of vital signs [x] Documentation [x] Medication orders and management Brief History Patient is a 64-year-old male with known history of hypertension, COPD, history of coronary artery disease, CHF with ejection fraction of 20 to 25% in August 2018 presenting to the emergency room via EMS complaining of shortness of breath. Patient was found to be hypoxic and in respiratory distress. Patient was placed on CPAP in route to the hospital. Oxygen saturation was said to be 88%. Started on Solu-Medrol, Lasix and magnesium in ED, patient was also found to be lethargic with an oxygen saturation of about 91% on CPAP. He was subsequently intubated. Work-up in the emergency room including chest x-ray reveals bilateral pneumonia. He had an elevated white count of 14 and also had an elevated BNP. Patient to be admitted to the ICU and placed on empiric IV antibiotics for pneumonia. He will also be tested positive for COVID-19 and placed on isolation precautions. Rmains intubated on ventilatory support, sputum cultures positive for Pseudomonas, ID changed antibiotics to cefepime and Vanco. 11/25: Leukocytosis improving. Continue current management anticipate extubation possible today. 11/26. Still intubated. Failed SBT yesterday. Repeat COVID-19 test is negative. 11/27. CT head ordered for possible neuro status change is negative. More responsive as the day progressed as per RN. Chest xray today shows interval improvement. He is still on antibiotics - will complete regimen today. 11/28: Considering difficult extubation and severe cardiomyopathy, will obtain cardiology consult. Aspiration precautions, tube feeds held, continue antibiotics. 11/29: Still with intermittent fever but improving imaging, continue diuresis. 11/30; Extremely agitated when placed on PSV- SVT, hypertension. Patiet acknowledged that he drinks. IV Ativan given, CIWA protocol initiated. 12 lead ordered showed SVT, one dose of amiodarone ordered. continue to follow up cardiology recommendation 12/01: Patient remains on mechanical ventilation, getting SBT trial. Remains in SVT, started on amiodarone drip by cardiology. 12/02; patient is on mechanical ventilation and on spontaneous breathing trial. Cardiology started the patient on PO amiodarone. Patient is on cefepime. 12/03: patient is on mechanical ventilation. Cardiology started the patient on PO amiodarone for SVT. Patient is on cefepime, no fever overnight. 12/04: Patient is sedated and on mechanical ventilation. Patient had fever yesterday afternoon 102.3, ID changed his cefepime to meropenem. Heart rate is controlled, cardiology is following. Patient has paroxysmal atrial fibrillation and on amiodarone and metoprolol, subcu heparin for anticoagulation and will need oral anticoagulation once stable. 12/05: Sputum cultures positive for Pseudomonas, ID following 12/06; patient is febrile T-max 24 hours 102 F ,ID change antibiotics to cefepime and Vancomycin 12/07: resumed care. Na 149 today, start on 03/26 NS. cont current care 12/08: remains in a stable sinus rhythm and stable blood pressure, continue supportive care. wean off vent as tolerated. persistent fever - ordered CTA chest 12/09: noted bloody discharges from ET tube last night. CTA and LE venous doppler positive for acute PE and DVT. resume heparin drip, consult vascular for possible EKOS/ IVC filter. monitor h/h. cont SBT trial, wean off vent as tolerated. called but no answer 12/10: cont heparin drip for acute PE and DVT, follow vascular recommendation. monitor h/h, wean off vent as tolerated Subjective Date of service: 12/11/19 Principal diagnosis: Ac hypoxemic resp failure; Pneumonia; PUI COVID-19; CHF; COPD; HTN Interval history: Patient seen and examined Patient intubated on mechanical ventilation Discussed with RN at the bedside NO bleeding from ET tube NOTED THIS AM H/H STABLE Objective - Exam Narrative Exam: General appearance: Present: well-nourished, other (Intubated), opens eyes to names and follows minor command - EENT Eyes: Present: PERRL, EOM intact. Absent: scleral icterus ENT: clear oral mucosa, dentition normal - Neck Neck: Present: supple, normal ROM - Respiratory Respiratory effort: normal, mechanical ventilation Respiratory: bilateral: rales - Cardiovascular Rhythm: regular Heart Sounds: Present: S1 & S2, tachycardic. Absent: gallop, systolic murmur, diastolic murmur, rub - Extremities Extremities: no ischemia, pulses intact, pulses symmetrical, No edema, Full ROM Peripheral Pulses: within normal limits - Abdominal General gastrointestinal: Present: soft, non-tender, non-distended, normal bowel sounds. Absent: mass - Integumentary Integumentary: Present: clear, warm, dry. Absent: rash - Musculoskeletal Musculoskeletal: no joint swelling - Psychiatric Psychiatric: sedated Neurology: no focal deficits - Constitutional Vitals: Vital Signs - 12hr 12/11/19 12/11/19 12/11/19 02:31 03:00 03:15 Temperature 98.9 F Pulse Rate 75 73 Pulse Rate [ Anterior Bilateral Throughout] Pulse Rate [ From Monitor] Respiratory 17 18 Rate Respiratory Rate [Anterior Bilateral Throughout] Respiratory Rate [Chest] Blood Pressure 109/68 108/64 O2 Sat by Pulse 95 95 Oximetry 12/11/19 12/11/19 12/11/19 03:31 04:00 04:31 Temperature Pulse Rate 74 84 87 Pulse Rate [ Anterior Bilateral Throughout] Pulse Rate [ From Monitor] Respiratory 17 16 18 Rate Respiratory Rate [Anterior Bilateral Throughout] Respiratory 16 Rate [Chest] Blood Pressure 108/64 110/67 110/67 O2 Sat by Pulse 96 96 98 Oximetry 12/11/19 12/11/19 12/11/19 04:37 05:00 05:30 Temperature Pulse Rate 88 82 Pulse Rate [ 94 H Anterior Bilateral Throughout] Pulse Rate [ From Monitor] Respiratory 13 13 Rate Respiratory 20 Rate [Anterior Bilateral Throughout] Respiratory Rate [Chest] Blood Pressure 111/81 110/67 O2 Sat by Pulse 98 98 Oximetry 12/11/19 12/11/19 12/11/19 06:00 06:31 07:00 Temperature Pulse Rate 78 75 74 Pulse Rate [ Anterior Bilateral Throughout] Pulse Rate [ From Monitor] Respiratory 17 13 14 Rate Respiratory Rate [Anterior Bilateral Throughout] Respiratory Rate [Chest] Blood Pressure 108/68 108/68 106/72 O2 Sat by Pulse 96 97 94 Oximetry 12/11/19 12/11/19 12/11/19 07:04 07:31 08:00 Temperature 98.3 F Pulse Rate 74 72 73 Pulse Rate [ 78 Anterior Bilateral Throughout] Pulse Rate [ 94 H From Monitor] Respiratory 16 15 Rate Respiratory 20 Rate [Anterior Bilateral Throughout] Respiratory Rate [Chest] Blood Pressure 106/72 106/72 103/64 O2 Sat by Pulse 95 98 94 Oximetry 12/11/19 12/11/19 12/11/19 08:31 09:00 09:31 Temperature Pulse Rate 71 73 73 Pulse Rate [ Anterior Bilateral Throughout] Pulse Rate [ From Monitor] Respiratory 16 14 16 Rate Respiratory Rate [Anterior Bilateral Throughout] Respiratory Rate [Chest] Blood Pressure 103/64 110/73 110/73 O2 Sat by Pulse 96 97 95 Oximetry 12/11/19 12/11/19 12/11/19 09:50 10:00 10:31 Temperature Pulse Rate 76 76 79 Pulse Rate [ Anterior Bilateral Throughout] Pulse Rate [ From Monitor] Respiratory 26 H 14 21 Rate Respiratory Rate [Anterior Bilateral Throughout] Respiratory Rate [Chest] Blood Pressure 113/67 113/67 113/67 O2 Sat by Pulse 92 92 87 Oximetry 12/11/19 12/11/19 12/11/19 11:00 11:31 11:48 Temperature Pulse Rate 90 89 Pulse Rate [ Anterior Bilateral Throughout] Pulse Rate [ From Monitor] Respiratory 19 18 17 Rate Respiratory Rate [Anterior Bilateral Throughout] Respiratory Rate [Chest] Blood Pressure 124/76 124/76 124/76 O2 Sat by Pulse 94 94 Oximetry 12/11/19 12/11/19 12/11/19 12:00 12:31 13:00 Temperature 98.5 F Pulse Rate 87 82 82 Pulse Rate [ Anterior Bilateral Throughout] Pulse Rate [ 85 From Monitor] Respiratory 16 17 16 Rate Respiratory Rate [Anterior Bilateral Throughout] Respiratory Rate [Chest] Blood Pressure 112/76 112/76 114/70 O2 Sat by Pulse 92 93 Oximetry 12/11/19 12/11/19 12/11/19 13:22 13:31 14:00 Temperature Pulse Rate 81 84 Pulse Rate [ 86 Anterior Bilateral Throughout] Pulse Rate [ From Monitor] Respiratory 14 18 Rate Respiratory 20 Rate [Anterior Bilateral Throughout] Respiratory Rate [Chest] Blood Pressure 114/70 130/82 O2 Sat by Pulse 98 Oximetry - Labs CBC & Chem 7: 12/12/19 05:53 12/11/19 08:36 Labs: Abnormal lab results 12/10/19 12/10/19 12/11/19 Range/Units 18:44 21:20 00:08 WBC 14.9 H (4.5-11.0) K/mm3 RBC 3.36 L (3.65-5.03) M/mm3 Hgb 9.6 L (11.8-15.2) gm/dl Hct 30.5 L (35.5-45.6) % RDW 15.4 H (13.2-15.2) % Heparin Anti-Xa Level (0.3-0.7) U.I./ml Creatinine (0.8-1.3) mg/dL Glucose (75-100) mg/dL POC Glucose 119 H 134 H (70-105) 12/11/19 12/11/19 12/11/19 Range/Units 03:54 07:28 08:36 WBC 11.9 H (4.5-11.0) K/mm3 RBC 3.25 L (3.65-5.03) M/mm3 Hgb 9.6 L (11.8-15.2) gm/dl Hct 29.2 L (35.5-45.6) % RDW 15.7 H (13.2-15.2) % Heparin Anti-Xa Level 0.10 L 0.16 L (0.3-0.7) U.I./ml Creatinine (0.8-1.3) mg/dL Glucose (75-100) mg/dL POC Glucose (70-105) 12/11/19 12/11/19 Range/Units 08:36 11:45 WBC (4.5-11.0) K/mm3 RBC (3.65-5.03) M/mm3 Hgb (11.8-15.2) gm/dl Hct (35.5-45.6) % RDW (13.2-15.2) % Heparin Anti-Xa Level (0.3-0.7) U.I./ml Creatinine 0.5 L (0.8-1.3) mg/dL Glucose 128 H (75-100) mg/dL POC Glucose 136 H (70-105) HEART Score - HEART Score Troponin: Troponin T < 0.010 ng/mL (0.00-0.029) 11/24/19 02:53
--- NOTE | 2019-12-11 16:35 | Event Note ---
Date: 12/11/19 Heparin gtt was restarted and the patient is tolerating it without obvious signs of bleeding. Will hold off on placing IVC Filter for now. Call if patient bleeds on heparin.
[2019-12-11] MEDS: HEPARIN/ 0.45% NACL DRIP 25,000 UNIT/500 ML BAG IV SCH (16:54)
--- NOTE | 2019-12-11 17:13 | Progress Note ---
Assessment and Plan Cultures: Blood culture 12/02/2019 negative Blood culture 11/24/2019 negative Urine culture 11/24/2019 negative COVID-19 negative x2 12/04/2019 resp culture: PsA 12/06/2019 blood cultures: No growth today A/P: 64-year-old male past medical history hypertension, COPD, CAD, CHF with reduced ejection fraction admitted with acute hypoxic respiratory failure likely secondary to pneumonia #Sepsis: With persistent fever 100.3, unclear etiology possible due to pneumonia. Procalcitonin improving, from 1.5-->0.6. #Acute hypoxemic respiratory failure: Likely secondary to pneumonia, COVID-19 testing negative x 2. Remains intubated, on CPAP trial #Bilateral pneumonia: COVID-19 negative twice. Culture growing Pseudomonas, pansensitive. Repeat chest x-ray with persistent right base opacity. ? Non-res olving pneumonia #CHF: per primary team #COPD: per pulmonary #Elevated LFTs: worsening ? sepsis ?cholecystitis #PE: on heparin now. Recs: -chest CT ordered per Dr Chester- pending suspect non resolving pneumonia/PE -Obtain RUQ US eval for cholecystitis -pending -Continue cefepime IV for now - day 6 -Continue vancomycin with PK consult - day 5 -Obtain MRSA PCR-pending, reordered -Monitor LFTs Michael Wade MD [facility] M: [phone] O: [phone] F: [phone] Subjective Date of service: 12/11/19 Principal diagnosis: Ac hypoxemic resp failure; Pneumonia; PUI COVID-19; CHF; COPD; HTN Interval history: Afebrile, white count slightly improved to 12. Objective - Exam Narrative Exam: Constitutional: Alert intubated Head, Ears, Nose: Normocephalic, atraumatic. External ears, nose normal Oral: ETT in place, OG tube in place Eyes: Conjunctivae/corneas clear. No icterus. No ptosis. Neck: Supple, no meningeal signs Cardiovascular: RRR Respiratory: diminished GI: Soft, non-tender; bowel sounds normal. No peritoneal signs Musculoskeletal: Left hand swelling left arm with swelling Skin: No rash or abscess Hem/Lymphatic: No palpable cervical or supraclavicular nodes. No lymphangitis Psych: Alert Neurological: Alert - Constitutional Vitals: Vital Signs Temp Pulse Resp BP Pulse Ox 98.5 F 85 16 121/73 92 12/11/19 12:00 12/11/19 16:00 12/11/19 16:00 12/11/19 16:00 12/11/19 16:00 Temperature -Last 24 Hours Temperature 98.5 F Temperature 98.3 F Temperature 98.9 F Temperature 98.4 F Temperature 98.6 F - Labs CBC & Chem 7: 12/11/19 08:36 12/11/19 08:36 Labs: Abnormal lab results 12/10/19 12/10/19 12/11/19 Range/Units 18:44 21:20 00:08 WBC 14.9 H (4.5-11.0) K/mm3 RBC 3.36 L (3.65-5.03) M/mm3 Hgb 9.6 L (11.8-15.2) gm/dl Hct 30.5 L (35.5-45.6) % RDW 15.4 H (13.2-15.2) % Heparin Anti-Xa Level (0.3-0.7) U.I./ml Creatinine (0.8-1.3) mg/dL Glucose (75-100) mg/dL POC Glucose 119 H 134 H (70-105) 12/11/19 12/11/19 12/11/19 Range/Units 03:54 07:28 08:36 WBC 11.9 H (4.5-11.0) K/mm3 RBC 3.25 L (3.65-5.03) M/mm3 Hgb 9.6 L (11.8-15.2) gm/dl Hct 29.2 L (35.5-45.6) % RDW 15.7 H (13.2-15.2) % Heparin Anti-Xa Level 0.10 L 0.16 L (0.3-0.7) U.I./ml Creatinine (0.8-1.3) mg/dL Glucose (75-100) mg/dL POC Glucose (70-105) 12/11/19 12/11/19 Range/Units 08:36 11:45 WBC (4.5-11.0) K/mm3 RBC (3.65-5.03) M/mm3 Hgb (11.8-15.2) gm/dl Hct (35.5-45.6) % RDW (13.2-15.2) % Heparin Anti-Xa Level (0.3-0.7) U.I./ml Creatinine 0.5 L (0.8-1.3) mg/dL Glucose 128 H (75-100) mg/dL POC Glucose 136 H (70-105)
[2019-12-11] MEDS: LORazepam 2 MG/ML VIAL IV PRN (18:01)
[2019-12-11] MEDS: POLYETHYLENE GLYCOL 3350 17 GM POWDER PO SCH (22:44)
[2019-12-11] MEDS: QUEtiapine 100 MG TAB PO SCH (22:44)
[2019-12-12] MEDS: INSULIN LISPRO 100 UNIT/ML VIAL 3 mL SUB-Q SCH ×4 (01:38→19:10)
[2019-12-12] MEDS: VANCOMYCIN 1,500 MG in SODIUM CHLORIDE 0.9% 500 ML 500 ML IV SCH ×2 (03:48→16:45)
[2019-12-12] MEDS: ALBUTEROL 2.5 MG/3 ML NEBU IH SCH ×4 (03:55→20:09)
[2019-12-12] MEDS: METOPROLOL TARTRATE 50 MG TAB PO SCH ×3 (05:15→21:30)
[2019-12-12] MEDS: CEFEPIME/NS 2 GM/100 ML 2 GM/100 ML BAG IV SCH ×3 (05:16→21:29)
[2019-12-12 06:27] LABS: Hematocrit 27.6 % (35.5-45.6); Hemoglobin 8.8 gm/dl (11.8-15.2)
[2019-12-12] MEDS: fentaNYL DRIP Premix 2,000 MCG/100 ML BAG IV SCH ×3 (07:41→21:31)
[2019-12-12] MEDS: HEPARIN/ 0.45% NACL DRIP 25,000 UNIT/500 ML BAG IV SCH (07:43)
--- NOTE | 2019-12-12 08:16 | Progress Note ---
Assessment and Plan Acute hypoxemic respiratory failure Bilateral pneumonia, community acquired. Acute congestive heart failure exacerbation. History of cerebrovascular accident. Acute chronic obstructive pulmonary disease exacerbation. Hypertension and hypertensive urgency at presentation. History of arthritis. Oropharyngeal dysphagia Right Lext DVT Pulmonary embolism Heparin infusion, while monitoring for bleeding SBTs Gentle diuresis, IV lasix ordered CXR in am - continue to monitor renal function, hemodynamics and electrolyte profile - continue to wean oxygen for O2 sats > 90% - continue bronchodilators with pulmonary hygiene per RT - VAP bundle addressed (Aspiration precautions, HOB >40) - continue to wean per pulmonary driven protocols - continue prn analgesia per CPOT score - follow clinically re: fever curves / trend WBC - Avoid delirium (no benzodiazepines if they can be avoided) - Enteral nutrition at goal rate as tolerated - continue accuchecks with glycemic control per SSI for target blood glucose goal of 140-180 mg/dL while critically ill; Avoid hypoglycemia - continue VTE prophylaxis with Heparin - continue stress ulcer prophylaxis with Famotidine - continue mobility protocols for pressure ulcer prophylaxis - continue fall precautions - continue wound care management per RN / WCT - Supportive transfusions as indicated to keep HgB>7g/dL - Continue to monitor neurologic function - Continue chronic home medications as clinically indicated - Continue all supportive care CONDITION: CRITICAL PROGNOSIS: GUARDED CODE STATUS: FULL CODE The high probability of a clinically significant, sudden or life threatening deterioration of the [Respiratory, cardiovascular & neurological] system(s) required my full and direct attention, intervention and personal management. The aggregate critical care time was [33] minutes without overlap. Time includes spent on [x] Data Review and interpretation [x] Patient assessment and monitoring of vital signs [x] Documentation [x] Medication orders and management Subjective Date of service: 12/12/19 Principal diagnosis: Ac hypoxemic resp failure; Pneumonia; PUI COVID-19; CHF; COPD; HTN Interval history: Patient is seen today for: Acute hypoxemic respiratory failure; Adan. Pneumonia (CAP); PUI COVID-19 infection; AE-CHF; AE-COPD; H/O CVA; HTN; PE, DVT Seen and examined at bedside; 24 hour events reviewed; nursing and respiratory care staff consulted; no adverse overnight events reported to me; resting peacefully in bed; ETT in place. No asynchrony, Vent 500/12/8/40%. On Fentanyl at 2 mcg, heparin infusion was resumed, old blood in tracheal aspirate Objective Vital Signs - 12hr 12/11/19 12/11/19 12/11/19 20:31 21:00 21:31 Temperature Pulse Rate 86 85 83 Pulse Rate [ Anterior Bilateral Throughout] Pulse Rate [ From Monitor] Respiratory 17 18 17 Rate Respiratory Rate [Anterior Bilateral Throughout] Blood Pressure 124/82 134/83 134/83 O2 Sat by Pulse 98 96 Oximetry 12/11/19 12/11/19 12/11/19 22:00 22:29 22:31 Temperature Pulse Rate 83 84 83 Pulse Rate [ Anterior Bilateral Throughout] Pulse Rate [ From Monitor] Respiratory 16 16 Rate Respiratory Rate [Anterior Bilateral Throughout] Blood Pressure 133/81 133/88 133/81 O2 Sat by Pulse 93 96 Oximetry 12/11/19 12/11/19 12/11/19 23:00 23:03 23:11 Temperature Pulse Rate 86 85 85 Pulse Rate [ Anterior Bilateral Throughout] Pulse Rate [ From Monitor] Respiratory 17 18 Rate Respiratory Rate [Anterior Bilateral Throughout] Blood Pressure 133/86 133/86 O2 Sat by Pulse 93 94 Oximetry 12/11/19 12/11/19 12/12/19 23:31 23:52 00:01 Temperature 98.5 F Pulse Rate 75 75 73 Pulse Rate [ Anterior Bilateral Throughout] Pulse Rate [ From Monitor] Respiratory 15 16 Rate Respiratory Rate [Anterior Bilateral Throughout] Blood Pressure 133/86 133/86 111/65 O2 Sat by Pulse 95 95 93 Oximetry 12/12/19 12/12/19 12/12/19 00:31 01:00 01:31 Temperature Pulse Rate 74 74 77 Pulse Rate [ Anterior Bilateral Throughout] Pulse Rate [ From Monitor] Respiratory 18 14 16 Rate Respiratory Rate [Anterior Bilateral Throughout] Blood Pressure 111/65 115/69 115/69 O2 Sat by Pulse 96 94 95 Oximetry 12/12/19 12/12/19 12/12/19 02:00 02:31 03:00 Temperature Pulse Rate 76 76 75 Pulse Rate [ Anterior Bilateral Throughout] Pulse Rate [ From Monitor] Respiratory 15 16 14 Rate Respiratory Rate [Anterior Bilateral Throughout] Blood Pressure 113/73 113/73 117/71 O2 Sat by Pulse 93 95 94 Oximetry 12/12/19 12/12/19 12/12/19 03:28 03:31 03:39 Temperature 98.9 F Pulse Rate 77 71 Pulse Rate [ Anterior Bilateral Throughout] Pulse Rate [ From Monitor] Respiratory 16 Rate Respiratory Rate [Anterior Bilateral Throughout] Blood Pressure 117/71 O2 Sat by Pulse 95 Oximetry 12/12/19 12/12/19 12/12/19 03:41 04:00 04:31 Temperature Pulse Rate 77 80 Pulse Rate [ Anterior Bilateral Throughout] Pulse Rate [ 82 From Monitor] Respiratory 13 16 Rate Respiratory Rate [Anterior Bilateral Throughout] Blood Pressure 123/78 123/78 O2 Sat by Pulse 98 97 96 Oximetry 12/12/19 12/12/19 12/12/19 04:57 05:00 05:15 Temperature Pulse Rate 78 78 79 Pulse Rate [ 77 Anterior Bilateral Throughout] Pulse Rate [ From Monitor] Respiratory 13 Rate Respiratory 15 Rate [Anterior Bilateral Throughout] Blood Pressure 123/78 114/70 114/70 O2 Sat by Pulse 95 94 Oximetry 12/12/19 12/12/19 12/12/19 05:31 06:00 06:31 Temperature Pulse Rate 78 77 76 Pulse Rate [ Anterior Bilateral Throughout] Pulse Rate [ From Monitor] Respiratory 13 17 15 Rate Respiratory Rate [Anterior Bilateral Throughout] Blood Pressure 114/70 114/75 114/75 O2 Sat by Pulse 95 94 95 Oximetry 12/12/19 12/12/19 12/12/19 07:00 07:23 07:31 Temperature Pulse Rate 73 75 78 Pulse Rate [ 85 Anterior Bilateral Throughout] Pulse Rate [ From Monitor] Respiratory 17 14 Rate Respiratory 15 Rate [Anterior Bilateral Throughout] Blood Pressure 120/71 120/71 120/71 O2 Sat by Pulse 96 98 Oximetry 12/12/19 08:00 Temperature 99.0 F Pulse Rate 79 Pulse Rate [ Anterior Bilateral Throughout] Pulse Rate [ From Monitor] Respiratory 18 Rate Respiratory Rate [Anterior Bilateral Throughout] Blood Pressure 113/78 O2 Sat by Pulse 93 Oximetry Constitutional: no acute distress, agitated, other (elderly and obese male, normocephalic with mildly increased respiratory effort at rest on MVS) Eyes: non-icteric ENT: oropharynx moist, other (ETT 24 cm JASON) Neck: supple, no JVD Effort: very labored Ascultation: Bilateral: clear, diminished breath sounds, rhonchi (scant; improved RLL air entry also) Percussion: Bilateral: not dull Cardiovascular: irregular rhythm Gastrointestinal: normoactive bowel sounds, soft, non-tender, non-distended Integumentary: normal Extremities: no cyanosis, no edema, pulses normal, no ischemia or petechiae Neurologic: non-focal exam (moves all extremities with extreme agitation), pupils equal and round, motor strength normal and, other (sedated lightly) Psychiatric: mood appropriate, affect normal CBC and BMP: 12/12/19 05:53 12/11/19 08:36 ABG, PT/INR, D-dimer: ABG ABG pH 7.439 (7.320-7.450) 12/02/19 12:58 POC ABG pCO2 45.1 mmHg (32.0-48.0) 12/02/19 12:58 ABG pCO2 43.4 mm Hg 11/30/19 04:56 POC ABG pO2 78.1 mmHg (83-108) L 12/02/19 12:58 ABG pO2 56.3 mm Hg (80.0-90.0) L 11/30/19 04:56 POC ABG HCO3 29.9 12/02/19 12:58 ABG O2 Saturation 91.5 % (95.0-99.0) L 11/30/19 04:56 PT/INR, D-dimer PT 14.0 Sec. (12.2-14.9) 12/10/19 21:20 INR 1.06 (0.87-1.13) 12/10/19 21:20 Abnormal lab findings: Abnormal Labs 11/24/19 11/24/19 11/24/19 02:53 02:53 03:45 WBC 14.3 H RBC Hgb Hct MCHC RDW 17.2 H Lymph % (Auto) [place] % (Auto) [place] # Eos # Seg Neutrophils % Seg Neuts % (Manual) Lymphocytes % (Manual) Monocytes % (Manual) Basophils % (Manual) Seg Neutrophils # Seg Neutrophils # Man 8.3 H Monocytes # (Manual) 0.9 H Basophils # (Manual) Heparin Anti-Xa Level ABG pH 7.313 L POC ABG pO2 ABG pO2 102.8 H ABG HCO3 ABG O2 Saturation ABG Base Excess -2.9 L ABG Hemoglobin ABG Oxyhemoglobin Oxyhemoglobin 93.9 L Sodium Potassium Chloride BUN Creatinine Glucose 195 H POC Glucose Lactic Acid Calcium Phosphorus Magnesium AST ALT Lactate Dehydrogenase CK-MB (CK-2) 4.3 H C-Reactive Protein NT-Pro-B Natriuret Pep 1181 H Total Protein Albumin Urine WBC (Auto) 11/24/19 11/24/19 11/24/19 04:53 04:53 10:37 WBC RBC Hgb Hct MCHC RDW Lymph % (Auto) [place] % (Auto) [place] # Eos # Seg Neutrophils % Seg Neuts % (Manual) Lymphocytes % (Manual) Monocytes % (Manual) Basophils % (Manual) Seg Neutrophils # Seg Neutrophils # Man Monocytes # (Manual) Basophils # (Manual) Heparin Anti-Xa Level ABG pH POC ABG pO2 ABG pO2 ABG HCO3 ABG O2 Saturation ABG Base Excess ABG Hemoglobin ABG Oxyhemoglobin Oxyhemoglobin Sodium Potassium Chloride BUN Creatinine Glucose 162 H POC Glucose Lactic Acid 2.40 H* 2.50 H* Calcium Phosphorus Magnesium AST ALT Lactate Dehydrogenase 240 H CK-MB (CK-2) C-Reactive Protein NT-Pro-B Natriuret Pep Total Protein Albumin Urine WBC (Auto) 11/24/19 11/24/19 11/24/19 12:21 14:50 19:54 WBC RBC Hgb Hct MCHC RDW Lymph % (Auto) [place] % (Auto) [place] # Eos # Seg Neutrophils % Seg Neuts % (Manual) Lymphocytes % (Manual) Monocytes % (Manual) Basophils % (Manual) Seg Neutrophils # Seg Neutrophils # Man Monocytes # (Manual) Basophils # (Manual) Heparin Anti-Xa Level ABG pH POC ABG pO2 ABG pO2 ABG HCO3 ABG O2 Saturation ABG Base Excess ABG Hemoglobin ABG Oxyhemoglobin Oxyhemoglobin Sodium Potassium Chloride BUN Creatinine Glucose POC Glucose 145 H 143 H 124 H Lactic Acid Calcium Phosphorus Magnesium AST ALT Lactate Dehydrogenase CK-MB (CK-2) C-Reactive Protein NT-Pro-B Natriuret Pep Total Protein Albumin Urine WBC (Auto) 11/25/19 11/25/19 11/25/19 00:18 03:18 05:11 WBC 13.7 H RBC Hgb Hct MCHC RDW 17.1 H Lymph % (Auto) 10.8 L [place] % (Auto) 8.7 H [place] # 1.2 H Eos # Seg Neutrophils % 80.2 H Seg Neuts % (Manual) Lymphocytes % (Manual) Monocytes % (Manual) Basophils % (Manual) Seg Neutrophils # 11.0 H Seg Neutrophils # Man Monocytes # (Manual) Basophils # (Manual) Heparin Anti-Xa Level ABG pH 7.333 L POC ABG pO2 ABG pO2 61.2 L ABG HCO3 ABG O2 Saturation 90.2 L ABG Base Excess ABG Hemoglobin 13.7 L ABG Oxyhemoglobin Oxyhemoglobin 88.2 L Sodium Potassium Chloride BUN Creatinine Glucose POC Glucose 109 H Lactic Acid Calcium Phosphorus Magnesium AST ALT Lactate Dehydrogenase CK-MB (CK-2) C-Reactive Protein NT-Pro-B Natriuret Pep Total Protein Albumin Urine WBC (Auto) 11/25/19 11/25/19 11/26/19 05:11 11:40 03:12 WBC RBC Hgb Hct MCHC RDW Lymph % (Auto) [place] % (Auto) [place] # Eos # Seg Neutrophils % Seg Neuts % (Manual) Lymphocytes % (Manual) Monocytes % (Manual) Basophils % (Manual) Seg Neutrophils # Seg Neutrophils # Man Monocytes # (Manual) Basophils # (Manual) Heparin Anti-Xa Level ABG pH POC ABG pO2 ABG pO2 155.1 H ABG HCO3 27.8 H ABG O2 Saturation ABG Base Excess ABG Hemoglobin 12.2 L ABG Oxyhemoglobin Oxyhemoglobin Sodium Potassium Chloride BUN 23 H Creatinine Glucose 110 H POC Glucose 108 H Lactic Acid Calcium Phosphorus Magnesium AST ALT Lactate Dehydrogenase CK-MB (CK-2) C-Reactive Protein NT-Pro-B Natriuret Pep Total Protein Albumin Urine WBC (Auto) 11/26/19 11/26/19 11/26/19 06:17 10:43 10:43 WBC 11.4 H RBC Hgb Hct MCHC RDW 17.1 H Lymph % (Auto) [place] % (Auto) [place] # Eos # Seg Neutrophils % Seg Neuts % (Manual) Lymphocytes % (Manual) Monocytes % (Manual) Basophils % (Manual) Seg Neutrophils # Seg Neutrophils # Man Monocytes # (Manual) Basophils # (Manual) Heparin Anti-Xa Level ABG pH POC ABG pO2 ABG pO2 ABG HCO3 ABG O2 Saturation ABG Base Excess ABG Hemoglobin ABG Oxyhemoglobin Oxyhemoglobin Sodium Potassium Chloride BUN 29 H Creatinine Glucose POC Glucose 107 H Lactic Acid Calcium Phosphorus Magnesium AST ALT Lactate Dehydrogenase CK-MB (CK-2) C-Reactive Protein NT-Pro-B Natriuret Pep Total Protein Albumin Urine WBC (Auto) 11/26/19 11/27/19 11/27/19 17:11 01:53 04:11 WBC RBC Hgb Hct MCHC RDW Lymph % (Auto) [place] % (Auto) [place] # Eos # Seg Neutrophils % Seg Neuts % (Manual) Lymphocytes % (Manual) Monocytes % (Manual) Basophils % (Manual) Seg Neutrophils # Seg Neutrophils # Man Monocytes # (Manual) Basophils # (Manual) Heparin Anti-Xa Level ABG pH POC ABG pO2 ABG pO2 ABG HCO3 29.2 H ABG O2 Saturation ABG Base Excess 3.4 H ABG Hemoglobin 13.3 L ABG Oxyhemoglobin Oxyhemoglobin 94.5 L Sodium Potassium Chloride BUN Creatinine Glucose POC Glucose 113 H 108 H Lactic Acid Calcium Phosphorus Magnesium AST ALT Lactate Dehydrogenase CK-MB (CK-2) C-Reactive Protein NT-Pro-B Natriuret Pep Total Protein Albumin Urine WBC (Auto) 11/27/19 11/28/19 11/28/19 05:27 05:00 05:25 WBC RBC Hgb Hct MCHC RDW Lymph % (Auto) [place] % (Auto) [place] # Eos # Seg Neutrophils % Seg Neuts % (Manual) Lymphocytes % (Manual) Monocytes % (Manual) Basophils % (Manual) Seg Neutrophils # Seg Neutrophils # Man Monocytes # (Manual) Basophils # (Manual) Heparin Anti-Xa Level ABG pH POC ABG pO2 68.1 L ABG pO2 ABG HCO3 ABG O2 Saturation ABG Base Excess ABG Hemoglobin ABG Oxyhemoglobin 91.2 L Oxyhemoglobin Sodium Potassium Chloride BUN Creatinine Glucose POC Glucose 111 H 110 H Lactic Acid Calcium Phosphorus Magnesium AST ALT Lactate Dehydrogenase CK-MB (CK-2) C-Reactive Protein NT-Pro-B Natriuret Pep Total Protein Albumin Urine WBC (Auto) 11/28/19 11/28/19 11/28/19 12:08 13:47 13:47 WBC 11.3 H RBC Hgb Hct MCHC RDW 16.1 H Lymph % (Auto) [place] % (Auto) 9.9 H [place] # 1.1 H Eos # Seg Neutrophils % 71.4 H Seg Neuts % (Manual) Lymphocytes % (Manual) Monocytes % (Manual) Basophils % (Manual) Seg Neutrophils # 8.1 H Seg Neutrophils # Man Monocytes # (Manual) Basophils # (Manual) Heparin Anti-Xa Level ABG pH POC ABG pO2 ABG pO2 ABG HCO3 ABG O2 Saturation ABG Base Excess ABG Hemoglobin ABG Oxyhemoglobin Oxyhemoglobin Sodium Potassium Chloride BUN 23 H Creatinine Glucose 123 H POC Glucose 112 H Lactic Acid Calcium Phosphorus Magnesium AST ALT Lactate Dehydrogenase CK-MB (CK-2) C-Reactive Protein NT-Pro-B Natriuret Pep Total Protein Albumin 3.7 L Urine WBC (Auto) 11/28/19 11/29/19 11/29/19 17:26 03:55 17:04 WBC RBC Hgb Hct MCHC RDW Lymph % (Auto) [place] % (Auto) [place] # Eos # Seg Neutrophils % Seg Neuts % (Manual) Lymphocytes % (Manual) Monocytes % (Manual) Basophils % (Manual) Seg Neutrophils # Seg Neutrophils # Man Monocytes # (Manual) Basophils # (Manual) Heparin Anti-Xa Level ABG pH POC ABG pO2 ABG pO2 65.7 L ABG HCO3 28.3 H ABG O2 Saturation 93.9 L ABG Base Excess 3.6 H ABG Hemoglobin 13.3 L ABG Oxyhemoglobin Oxyhemoglobin 91.5 L Sodium Potassium Chloride BUN Creatinine Glucose POC Glucose 123 H 119 H Lactic Acid Calcium Phosphorus Magnesium AST ALT Lactate Dehydrogenase CK-MB (CK-2) C-Reactive Protein NT-Pro-B Natriuret Pep Total Protein Albumin Urine WBC (Auto) 11/30/19 11/30/19 11/30/19 04:17 04:17 04:56 WBC 13.4 H RBC Hgb Hct MCHC RDW 15.6 H Lymph % (Auto) [place] % (Auto) [place] # Eos # Seg Neutrophils % Seg Neuts % (Manual) Lymphocytes % (Manual) Monocytes % (Manual) Basophils % (Manual) Seg Neutrophils # Seg Neutrophils # Man Monocytes # (Manual) Basophils # (Manual) Heparin Anti-Xa Level ABG pH POC ABG pO2 ABG pO2 56.3 L ABG HCO3 29.3 H ABG O2 Saturation 91.5 L ABG Base Excess 4.7 H ABG Hemoglobin 12.1 L ABG Oxyhemoglobin Oxyhemoglobin 89.2 L Sodium 147 H Potassium Chloride BUN 30 H Creatinine Glucose 124 H POC Glucose Lactic Acid Calcium Phosphorus Magnesium AST ALT Lactate Dehydrogenase CK-MB (CK-2) C-Reactive Protein NT-Pro-B Natriuret Pep Total Protein Albumin 3.8 L Urine WBC (Auto) 11/30/19 11/30/19 11/30/19 05:51 11:54 18:17 WBC RBC Hgb Hct MCHC RDW Lymph % (Auto) [place] % (Auto) [place] # Eos # Seg Neutrophils % Seg Neuts % (Manual) Lymphocytes % (Manual) Monocytes % (Manual) Basophils % (Manual) Seg Neutrophils # Seg Neutrophils # Man Monocytes # (Manual) Basophils # (Manual) Heparin Anti-Xa Level ABG pH POC ABG pO2 ABG pO2 ABG HCO3 ABG O2 Saturation ABG Base Excess ABG Hemoglobin ABG Oxyhemoglobin Oxyhemoglobin Sodium Potassium Chloride BUN Creatinine Glucose POC Glucose 127 H 115 H 143 H Lactic Acid Calcium Phosphorus Magnesium AST ALT Lactate Dehydrogenase CK-MB (CK-2) C-Reactive Protein NT-Pro-B Natriuret Pep Total Protein Albumin Urine WBC (Auto) 12/01/19 12/01/19 12/01/19 01:18 05:22 12:16 WBC RBC Hgb Hct MCHC RDW Lymph % (Auto) [place] % (Auto) [place] # Eos # Seg Neutrophils % Seg Neuts % (Manual) Lymphocytes % (Manual) Monocytes % (Manual) Basophils % (Manual) Seg Neutrophils # Seg Neutrophils # Man Monocytes # (Manual) Basophils # (Manual) Heparin Anti-Xa Level ABG pH POC ABG pO2 ABG pO2 ABG HCO3 ABG O2 Saturation ABG Base Excess ABG Hemoglobin ABG Oxyhemoglobin Oxyhemoglobin Sodium Potassium 3.5 L Chloride 107.8 H BUN 37 H Creatinine Glucose 157 H POC Glucose 118 H 148 H Lactic Acid Calcium 8.2 L D Phosphorus Magnesium AST 48 H ALT 60 H Lactate Dehydrogenase 194 H CK-MB (CK-2) C-Reactive Protein 8.50 H NT-Pro-B Natriuret Pep Total Protein 5.5 L Albumin 2.8 L Urine WBC (Auto) 12/01/19 12/02/19 12/02/19 18:04 00:05 05:16 WBC 11.4 H RBC Hgb Hct MCHC RDW 15.9 H Lymph % (Auto) [place] % (Auto) 9.9 H [place] # 1.1 H Eos # Seg Neutrophils % 70.3 H Seg Neuts % (Manual) Lymphocytes % (Manual) Monocytes % (Manual) Basophils % (Manual) Seg Neutrophils # 8.0 H Seg Neutrophils # Man Monocytes # (Manual) Basophils # (Manual) Heparin Anti-Xa Level ABG pH POC ABG pO2 ABG pO2 ABG HCO3 ABG O2 Saturation ABG Base Excess ABG Hemoglobin ABG Oxyhemoglobin Oxyhemoglobin Sodium Potassium Chloride BUN Creatinine Glucose POC Glucose 143 H 107 H Lactic Acid Calcium Phosphorus Magnesium AST ALT Lactate Dehydrogenase CK-MB (CK-2) C-Reactive Protein NT-Pro-B Natriuret Pep Total Protein Albumin Urine WBC (Auto) 12/02/19 12/02/19 12/02/19 05:16 06:03 11:52 WBC RBC Hgb Hct MCHC RDW Lymph % (Auto) [place] % (Auto) [place] # Eos # Seg Neutrophils % Seg Neuts % (Manual) Lymphocytes % (Manual) Monocytes % (Manual) Basophils % (Manual) Seg Neutrophils # Seg Neutrophils # Man Monocytes # (Manual) Basophils # (Manual) Heparin Anti-Xa Level ABG pH POC ABG pO2 ABG pO2 ABG HCO3 ABG O2 Saturation ABG Base Excess ABG Hemoglobin ABG Oxyhemoglobin Oxyhemoglobin Sodium 146 H Potassium Chloride BUN 28 H Creatinine Glucose 123 H POC Glucose 110 H 152 H Lactic Acid Calcium Phosphorus Magnesium AST ALT Lactate Dehydrogenase CK-MB (CK-2) C-Reactive Protein NT-Pro-B Natriuret Pep Total Protein Albumin Urine WBC (Auto) 12/02/19 12/02/19 12/02/19 12:58 17:58 23:36 WBC RBC Hgb Hct MCHC RDW Lymph % (Auto) [place] % (Auto) [place] # Eos # Seg Neutrophils % Seg Neuts % (Manual) Lymphocytes % (Manual) Monocytes % (Manual) Basophils % (Manual) Seg Neutrophils # Seg Neutrophils # Man Monocytes # (Manual) Basophils # (Manual) Heparin Anti-Xa Level ABG pH POC ABG pO2 78.1 L ABG pO2 ABG HCO3 ABG O2 Saturation ABG Base Excess ABG Hemoglobin ABG Oxyhemoglobin Oxyhemoglobin Sodium Potassium Chloride BUN Creatinine Glucose POC Glucose 120 H 123 H Lactic Acid Calcium Phosphorus Magnesium AST ALT Lactate Dehydrogenase CK-MB (CK-2) C-Reactive Protein NT-Pro-B Natriuret Pep Total Protein Albumin Urine WBC (Auto) 12/03/19 12/03/19 12/03/19 06:03 06:14 11:46 WBC RBC Hgb Hct MCHC RDW Lymph % (Auto) [place] % (Auto) [place] # Eos # Seg Neutrophils % Seg Neuts % (Manual) Lymphocytes % (Manual) Monocytes % (Manual) Basophils % (Manual) Seg Neutrophils # Seg Neutrophils # Man Monocytes # (Manual) Basophils # (Manual) Heparin Anti-Xa Level ABG pH POC ABG pO2 ABG pO2 ABG HCO3 ABG O2 Saturation ABG Base Excess ABG Hemoglobin ABG Oxyhemoglobin Oxyhemoglobin Sodium Potassium Chloride BUN Creatinine Glucose POC Glucose 142 H 130 H Lactic Acid Calcium Phosphorus Magnesium AST ALT Lactate Dehydrogenase CK-MB (CK-2) C-Reactive Protein NT-Pro-B Natriuret Pep Total Protein Albumin Urine WBC (Auto) 8.0 H 12/03/19 12/03/19 12/04/19 15:50 17:39 00:04 WBC RBC Hgb Hct MCHC RDW Lymph % (Auto) [place] % (Auto) [place] # Eos # Seg Neutrophils % Seg Neuts % (Manual) Lymphocytes % (Manual) Monocytes % (Manual) Basophils % (Manual) Seg Neutrophils # Seg Neutrophils # Man Monocytes # (Manual) Basophils # (Manual) Heparin Anti-Xa Level ABG pH POC ABG pO2 ABG pO2 ABG HCO3 ABG O2 Saturation ABG Base Excess ABG Hemoglobin ABG Oxyhemoglobin Oxyhemoglobin Sodium Potassium Chloride BUN Creatinine Glucose POC Glucose 146 H 133 H Lactic Acid Calcium Phosphorus 2.40 L Magnesium AST ALT Lactate Dehydrogenase CK-MB (CK-2) C-Reactive Protein NT-Pro-B Natriuret Pep Total Protein Albumin Urine WBC (Auto) 12/04/19 12/04/19 12/04/19 03:58 03:58 05:22 WBC 12.5 H RBC Hgb 11.2 L Hct 35.2 L MCHC RDW 16.0 H Lymph % (Auto) [place] % (Auto) 9.6 H [place] # 1.2 H Eos # 0.5 H Seg Neutrophils % Seg Neuts % (Manual) Lymphocytes % (Manual) Monocytes % (Manual) Basophils % (Manual) Seg Neutrophils # 8.6 H Seg Neutrophils # Man Monocytes # (Manual) Basophils # (Manual) Heparin Anti-Xa Level ABG pH POC ABG pO2 ABG pO2 ABG HCO3 ABG O2 Saturation ABG Base Excess ABG Hemoglobin ABG Oxyhemoglobin Oxyhemoglobin Sodium 146 H Potassium Chloride 108.6 H BUN 30 H Creatinine 0.7 L Glucose 121 H POC Glucose 132 H Lactic Acid Calcium Phosphorus Magnesium AST ALT Lactate Dehydrogenase CK-MB (CK-2) C-Reactive Protein NT-Pro-B Natriuret Pep Total Protein Albumin Urine WBC (Auto) 12/04/19 12/04/19 12/05/19 13:26 18:43 00:19 WBC RBC Hgb Hct MCHC RDW Lymph % (Auto) [place] % (Auto) [place] # Eos # Seg Neutrophils % Seg Neuts % (Manual) Lymphocytes % (Manual) Monocytes % (Manual) Basophils % (Manual) Seg Neutrophils # Seg Neutrophils # Man Monocytes # (Manual) Basophils # (Manual) Heparin Anti-Xa Level ABG pH POC ABG pO2 ABG pO2 ABG HCO3 ABG O2 Saturation ABG Base Excess ABG Hemoglobin ABG Oxyhemoglobin Oxyhemoglobin Sodium Potassium Chloride BUN Creatinine Glucose POC Glucose 185 H 156 H 150 H Lactic Acid Calcium Phosphorus Magnesium AST ALT Lactate Dehydrogenase CK-MB (CK-2) C-Reactive Protein NT-Pro-B Natriuret Pep Total Protein Albumin Urine WBC (Auto) 12/05/19 12/05/19 12/05/19 03:37 03:37 05:14 WBC 16.3 H RBC Hgb 11.4 L Hct MCHC RDW 15.6 H Lymph % (Auto) 9.9 L [place] % (Auto) 9.7 H [place] # 1.6 H Eos # Seg Neutrophils % 78.0 H Seg Neuts % (Manual) Lymphocytes % (Manual) Monocytes % (Manual) Basophils % (Manual) Seg Neutrophils # 12.7 H Seg Neutrophils # Man Monocytes # (Manual) Basophils # (Manual) Heparin Anti-Xa Level ABG pH POC ABG pO2 ABG pO2 ABG HCO3 ABG O2 Saturation ABG Base Excess ABG Hemoglobin ABG Oxyhemoglobin Oxyhemoglobin Sodium 146 H Potassium Chloride 107.2 H BUN 27 H Creatinine 0.7 L Glucose 171 H POC Glucose 168 H Lactic Acid Calcium Phosphorus Magnesium AST ALT Lactate Dehydrogenase CK-MB (CK-2) C-Reactive Protein NT-Pro-B Natriuret Pep Total Protein Albumin Urine WBC (Auto) 12/05/19 12/05/19 12/05/19 12:31 18:10 23:58 WBC RBC Hgb Hct MCHC RDW Lymph % (Auto) [place] % (Auto) [place] # Eos # Seg Neutrophils % Seg Neuts % (Manual) Lymphocytes % (Manual) Monocytes % (Manual) Basophils % (Manual) Seg Neutrophils # Seg Neutrophils # Man Monocytes # (Manual) Basophils # (Manual) Heparin Anti-Xa Level ABG pH POC ABG pO2 ABG pO2 ABG HCO3 ABG O2 Saturation ABG Base Excess ABG Hemoglobin ABG Oxyhemoglobin Oxyhemoglobin Sodium Potassium Chloride BUN Creatinine Glucose POC Glucose 159 H 198 H 115 H Lactic Acid Calcium Phosphorus Magnesium AST ALT Lactate Dehydrogenase CK-MB (CK-2) C-Reactive Protein NT-Pro-B Natriuret Pep Total Protein Albumin Urine WBC (Auto) 12/06/19 12/06/19 12/06/19 05:24 05:24 05:25 WBC 14.9 H RBC Hgb 10.8 L Hct 34.0 L MCHC RDW 15.6 H Lymph % (Auto) 10.7 L [place] % (Auto) 8.3 H [place] # 1.2 H Eos # Seg Neutrophils % 78.7 H Seg Neuts % (Manual) Lymphocytes % (Manual) Monocytes % (Manual) Basophils % (Manual) Seg Neutrophils # 11.7 H Seg Neutrophils # Man Monocytes # (Manual) Basophils # (Manual) Heparin Anti-Xa Level ABG pH POC ABG pO2 ABG pO2 ABG HCO3 ABG O2 Saturation ABG Base Excess ABG Hemoglobin ABG Oxyhemoglobin Oxyhemoglobin Sodium 148 H Potassium 5.1 H Chloride 107.6 H BUN 27 H Creatinine 0.7 L Glucose 155 H POC Glucose 157 H Lactic Acid Calcium Phosphorus Magnesium AST ALT Lactate Dehydrogenase CK-MB (CK-2) C-Reactive Protein NT-Pro-B Natriuret Pep Total Protein Albumin Urine WBC (Auto) 12/07/19 12/07/19 12/07/19 00:13 05:34 11:33 WBC RBC Hgb Hct MCHC RDW Lymph % (Auto) Victoria % (Auto) Victoria # Eos # Seg Neutrophils % Seg Neuts % (Manual) Lymphocytes % (Manual) Monocytes % (Manual) Basophils % (Manual) Seg Neutrophils # Seg Neutrophils # Man Monocytes # (Manual) Basophils # (Manual) Heparin Anti-Xa Level ABG pH POC ABG pO2 ABG pO2 ABG HCO3 ABG O2 Saturation ABG Base Excess ABG Hemoglobin ABG Oxyhemoglobin Oxyhemoglobin Sodium Potassium Chloride BUN Creatinine Glucose POC Glucose 142 H 111 H 169 H Lactic Acid Calcium Phosphorus Magnesium AST ALT Lactate Dehydrogenase CK-MB (CK-2) C-Reactive Protein NT-Pro-B Natriuret Pep Total Protein Albumin Urine WBC (Auto) 12/07/19 12/07/19 12/07/19 12:41 13:25 18:19 WBC 12.4 H RBC 3.53 L Hgb 10.2 L Hct 32.1 L MCHC RDW 15.3 H Lymph % (Auto) 10.6 L Victoria % (Auto) 7.8 H Victoria # 1.0 H Eos # Seg Neutrophils % 77.6 H Seg Neuts % (Manual) Lymphocytes % (Manual) Monocytes % (Manual) Basophils % (Manual) Seg Neutrophils # 9.6 H Seg Neutrophils # Man Monocytes # (Manual) Basophils # (Manual) Heparin Anti-Xa Level ABG pH POC ABG pO2 ABG pO2 ABG HCO3 ABG O2 Saturation ABG Base Excess ABG Hemoglobin ABG Oxyhemoglobin Oxyhemoglobin Sodium 149 H Potassium Chloride 108.4 H BUN 26 H Creatinine 0.6 L Glucose 149 H POC Glucose 164 H Lactic Acid Calcium Phosphorus Magnesium 2.60 H AST 121 H ALT 145 H Lactate Dehydrogenase CK-MB (CK-2) C-Reactive Protein NT-Pro-B Natriuret Pep Total Protein Albumin 2.6 L Urine WBC (Auto) 12/07/19 12/08/19 12/08/19 22:25 00:02 03:55 WBC 13.3 H RBC 3.40 L Hgb 9.7 L Hct 30.8 L MCHC 31 L RDW 15.5 H Lymph % (Auto) Victoria % (Auto) 8.1 H Victoria # 1.1 H Eos # Seg Neutrophils % 73.0 H Seg Neuts % (Manual) Lymphocytes % (Manual) Monocytes % (Manual) Basophils % (Manual) Seg Neutrophils # 9.7 H Seg Neutrophils # Man Monocytes # (Manual) Basophils # (Manual) Heparin Anti-Xa Level 0.12 L ABG pH POC ABG pO2 ABG pO2 ABG HCO3 ABG O2 Saturation ABG Base Excess ABG Hemoglobin ABG Oxyhemoglobin Oxyhemoglobin Sodium Potassium Chloride BUN Creatinine Glucose POC Glucose 151 H Lactic Acid Calcium Phosphorus Magnesium AST ALT Lactate Dehydrogenase CK-MB (CK-2) C-Reactive Protein NT-Pro-B Natriuret Pep Total Protein Albumin Urine WBC (Auto) 12/08/19 12/08/19 12/08/19 03:55 05:21 06:01 WBC RBC Hgb Hct MCHC RDW Lymph % (Auto) Victoria % (Auto) Victoria # Eos # Seg Neutrophils % Seg Neuts % (Manual) Lymphocytes % (Manual) Monocytes % (Manual) Basophils % (Manual) Seg Neutrophils # Seg Neutrophils # Man Monocytes # (Manual) Basophils # (Manual) Heparin Anti-Xa Level 0.20 L ABG pH POC ABG pO2 ABG pO2 ABG HCO3 ABG O2 Saturation ABG Base Excess ABG Hemoglobin ABG Oxyhemoglobin Oxyhemoglobin Sodium 149 H Potassium Chloride 108.0 H BUN 28 H Creatinine 0.6 L Glucose 144 H POC Glucose 143 H Lactic Acid Calcium Phosphorus Magnesium AST 98 H ALT 145 H Lactate Dehydrogenase CK-MB (CK-2) C-Reactive Protein NT-Pro-B Natriuret Pep Total Protein 6.0 L Albumin 2.4 L Urine WBC (Auto) 12/08/19 12/08/19 12/08/19 12:08 18:11 23:53 WBC RBC Hgb Hct MCHC RDW Lymph % (Auto) Victoria % (Auto) Victoria # Eos # Seg Neutrophils % Seg Neuts % (Manual) Lymphocytes % (Manual) Monocytes % (Manual) Basophils % (Manual) Seg Neutrophils # Seg Neutrophils # Man Monocytes # (Manual) Basophils # (Manual) Heparin Anti-Xa Level ABG pH POC ABG pO2 ABG pO2 ABG HCO3 ABG O2 Saturation ABG Base Excess ABG Hemoglobin ABG Oxyhemoglobin Oxyhemoglobin Sodium Potassium Chloride BUN Creatinine Glucose POC Glucose 172 H 122 H 162 H Lactic Acid Calcium Phosphorus Magnesium AST ALT Lactate Dehydrogenase CK-MB (CK-2) C-Reactive Protein NT-Pro-B Natriuret Pep Total Protein Albumin Urine WBC (Auto) 12/09/19 12/09/19 12/09/19 04:03 04:03 05:53 WBC RBC Hgb 9.1 L Hct 28.9 L MCHC RDW Lymph % (Auto) Victoria % (Auto) Victoria # Eos # Seg Neutrophils % Seg Neuts % (Manual) Lymphocytes % (Manual) Monocytes % (Manual) Basophils % (Manual) Seg Neutrophils # Seg Neutrophils # Man Monocytes # (Manual) Basophils # (Manual) Heparin Anti-Xa Level 0.15 L ABG pH POC ABG pO2 ABG pO2 ABG HCO3 ABG O2 Saturation ABG Base Excess ABG Hemoglobin ABG Oxyhemoglobin Oxyhemoglobin Sodium Potassium Chloride BUN Creatinine Glucose POC Glucose 124 H Lactic Acid Calcium Phosphorus Magnesium AST ALT Lactate Dehydrogenase CK-MB (CK-2) C-Reactive Protein NT-Pro-B Natriuret Pep Total Protein Albumin Urine WBC (Auto) 12/09/19 12/09/19 12/10/19 09:43 12:41 00:13 WBC RBC Hgb Hct MCHC RDW Lymph % (Auto) Victoria % (Auto) Victoria # Eos # Seg Neutrophils % Seg Neuts % (Manual) Lymphocytes % (Manual) Monocytes % (Manual) Basophils % (Manual) Seg Neutrophils # Seg Neutrophils # Man Monocytes # (Manual) Basophils # (Manual) Heparin Anti-Xa Level ABG pH POC ABG pO2 ABG pO2 ABG HCO3 ABG O2 Saturation ABG Base Excess ABG Hemoglobin ABG Oxyhemoglobin Oxyhemoglobin Sodium Potassium Chloride BUN 25 H Creatinine 0.6 L Glucose 131 H POC Glucose 109 H 120 H Lactic Acid Calcium Phosphorus Magnesium AST ALT Lactate Dehydrogenase CK-MB (CK-2) C-Reactive Protein NT-Pro-B Natriuret Pep Total Protein Albumin Urine WBC (Auto) 12/10/19 12/10/19 12/10/19 04:14 04:14 12:00 WBC 13.3 H RBC 3.34 L Hgb 9.6 L Hct 30.4 L MCHC RDW 15.4 H Lymph % (Auto) Victoria % (Auto) Victoria # Eos # Seg Neutrophils % Seg Neuts % (Manual) 75.0 H Lymphocytes % (Manual) 13.0 L Monocytes % (Manual) 8.0 H Basophils % (Manual) 2.0 H Seg Neutrophils # Seg Neutrophils # Man 10.0 H Monocytes # (Manual) 1.1 H Basophils # (Manual) 0.3 H Heparin Anti-Xa Level ABG pH POC ABG pO2 ABG pO2 ABG HCO3 ABG O2 Saturation ABG Base Excess ABG Hemoglobin ABG Oxyhemoglobin Oxyhemoglobin Sodium 147 H Potassium Chloride 108.3 H BUN 21 H Creatinine 0.6 L Glucose 104 H POC Glucose 133 H Lactic Acid Calcium Phosphorus Magnesium AST ALT Lactate Dehydrogenase CK-MB (CK-2) C-Reactive Protein NT-Pro-B Natriuret Pep Total Protein Albumin Urine WBC (Auto) 12/10/19 12/10/19 12/11/19 18:44 21:20 00:08 WBC 14.9 H RBC 3.36 L Hgb 9.6 L Hct 30.5 L MCHC RDW 15.4 H Lymph % (Auto) Victoria % (Auto) Victoria # Eos # Seg Neutrophils % Seg Neuts % (Manual) Lymphocytes % (Manual) Monocytes % (Manual) Basophils % (Manual) Seg Neutrophils # Seg Neutrophils # Man Monocytes # (Manual) Basophils # (Manual) Heparin Anti-Xa Level ABG pH POC ABG pO2 ABG pO2 ABG HCO3 ABG O2 Saturation ABG Base Excess ABG Hemoglobin ABG Oxyhemoglobin Oxyhemoglobin Sodium Potassium Chloride BUN Creatinine Glucose POC Glucose 119 H 134 H Lactic Acid Calcium Phosphorus Magnesium AST ALT Lactate Dehydrogenase CK-MB (CK-2) C-Reactive Protein NT-Pro-B Natriuret Pep Total Protein Albumin Urine WBC (Auto) 12/11/19 12/11/19 12/11/19 03:54 07:28 08:36 WBC 11.9 H RBC 3.25 L Hgb 9.6 L Hct 29.2 L MCHC RDW 15.7 H Lymph % (Auto) Victoria % (Auto) Victoria # Eos # Seg Neutrophils % Seg Neuts % (Manual) Lymphocytes % (Manual) Monocytes % (Manual) Basophils % (Manual) Seg Neutrophils # Seg Neutrophils # Man Monocytes # (Manual) Basophils # (Manual) Heparin Anti-Xa Level 0.10 L 0.16 L ABG pH POC ABG pO2 ABG pO2 ABG HCO3 ABG O2 Saturation ABG Base Excess ABG Hemoglobin ABG Oxyhemoglobin Oxyhemoglobin Sodium Potassium Chloride BUN Creatinine Glucose POC Glucose Lactic Acid Calcium Phosphorus Magnesium AST ALT Lactate Dehydrogenase CK-MB (CK-2) C-Reactive Protein NT-Pro-B Natriuret Pep Total Protein Albumin Urine WBC (Auto) 12/11/19 12/11/19 12/11/19 08:36 11:45 17:15 WBC RBC Hgb Hct MCHC RDW Lymph % (Auto) Victoria % (Auto) Victoria # Eos # Seg Neutrophils % Seg Neuts % (Manual) Lymphocytes % (Manual) Monocytes % (Manual) Basophils % (Manual) Seg Neutrophils # Seg Neutrophils # Man Monocytes # (Manual) Basophils # (Manual) Heparin Anti-Xa Level ABG pH POC ABG pO2 ABG pO2 ABG HCO3 ABG O2 Saturation ABG Base Excess ABG Hemoglobin ABG Oxyhemoglobin Oxyhemoglobin Sodium Potassium Chloride BUN Creatinine 0.5 L Glucose 128 H POC Glucose 136 H 109 H Lactic Acid Calcium Phosphorus Magnesium AST ALT Lactate Dehydrogenase CK-MB (CK-2) C-Reactive Protein NT-Pro-B Natriuret Pep Total Protein Albumin Urine WBC (Auto) 12/12/19 12/12/19 12/12/19 00:03 05:53 05:53 WBC RBC Hgb 8.8 L Hct 27.6 L MCHC RDW Lymph % (Auto) Victoria % (Auto) Victoria # Eos # Seg Neutrophils % Seg Neuts % (Manual) Lymphocytes % (Manual) Monocytes % (Manual) Basophils % (Manual) Seg Neutrophils # Seg Neutrophils # Man Monocytes # (Manual) Basophils # (Manual) Heparin Anti-Xa Level 0.22 L ABG pH POC ABG pO2 ABG pO2 ABG HCO3 ABG O2 Saturation ABG Base Excess ABG Hemoglobin ABG Oxyhemoglobin Oxyhemoglobin Sodium Potassium Chloride BUN Creatinine Glucose POC Glucose 116 H Lactic Acid Calcium Phosphorus Magnesium AST ALT Lactate Dehydrogenase CK-MB (CK-2) C-Reactive Protein NT-Pro-B Natriuret Pep Total Protein Albumin Urine WBC (Auto) Allied health notes reviewed: nursing
[2019-12-12] MEDS: DOCUSATE SODIUM 100 MG/10 ML ORAL LIQD FEEDTUBE SCH ×2 (09:00→21:31)
[2019-12-12] MEDS: QUEtiapine 25 MG TAB PO SCH (09:00)
[2019-12-12] MEDS: AMIODARONE 200 MG TAB PO SCH ×2 (09:00→21:31)
[2019-12-12] MEDS: FAMOTIDINE 20 MG TAB PO SCH ×2 (09:02→21:37)
[2019-12-12] MEDS ORDERED: FUROSEMIDE 40 MG/4 ML INJ IV SCH (10:00)
--- NOTE | 2019-12-12 10:35 | Progress Note ---
Assessment and Plan - Patient Problems (1) Paroxysmal atrial fibrillation Current Visit: Yes Status: Acute Plan to address problem: We will continue conservative cardiac management and supportive measures as previously outlined. Subjective Date of service: 12/12/19 Principal diagnosis: Ac hypoxemic resp failure; Pneumonia; PUI COVID-19; CHF; COPD; HTN Interval history: Patient is sedated, on the vent. He is in a stable sinus rhythm at 82, systolic blood pressure 122. Objective Vital Signs Temp Pulse Pulse Pulse Resp Resp BP 12/12/19 08:00 99.0 F 79 79 18 113/78 12/12/19 07:31 78 14 120/71 12/12/19 07:23 75 85 15 120/71 12/12/19 07:00 73 17 120/71 12/12/19 06:31 76 15 114/75 12/12/19 06:00 77 17 114/75 12/12/19 05:31 78 13 114/70 12/12/19 05:15 79 114/70 12/12/19 05:00 78 13 114/70 12/12/19 04:57 78 77 15 123/78 12/12/19 04:31 80 16 123/78 12/12/19 04:00 77 13 123/78 12/12/19 03:41 82 12/12/19 03:39 71 12/12/19 03:31 77 16 117/71 12/12/19 03:28 98.9 F 12/12/19 03:00 75 14 117/71 12/12/19 02:31 76 16 113/73 12/12/19 02:00 76 15 113/73 12/12/19 01:31 77 16 115/69 12/12/19 01:00 74 14 115/69 12/12/19 00:31 74 18 111/65 12/12/19 00:01 73 16 111/65 12/11/19 23:52 75 133/86 12/11/19 23:31 98.5 F 75 15 133/86 12/11/19 23:11 85 12/11/19 23:03 85 18 133/86 12/11/19 23:00 86 17 133/86 12/11/19 22:31 83 16 133/81 12/11/19 22:29 84 133/88 12/11/19 22:00 83 16 133/81 12/11/19 21:31 83 17 134/83 12/11/19 21:00 85 18 134/83 12/11/19 20:31 86 17 124/82 12/11/19 20:16 85 84 12 124/82 12/11/19 20:00 99.8 F H 86 85 17 124/82 12/11/19 19:31 83 14 121/74 12/11/19 19:00 88 21 121/74 12/11/19 18:31 95 H 31 H 175/104 12/11/19 18:01 112 H 22 175/104 12/11/19 17:31 85 16 141/84 12/11/19 17:00 83 14 141/84 12/11/19 16:31 83 13 121/73 12/11/19 16:00 98.3 F 83 85 16 121/73 12/11/19 15:31 87 21 130/82 12/11/19 15:00 85 16 127/73 12/11/19 14:31 84 17 127/73 12/11/19 14:00 84 18 130/82 12/11/19 13:31 81 14 114/70 12/11/19 13:22 86 20 12/11/19 13:00 82 16 114/70 12/11/19 12:31 82 17 112/76 12/11/19 12:00 98.5 F 84 85 16 112/76 12/11/19 11:48 82 17 124/76 12/11/19 11:31 89 18 124/76 12/11/19 11:00 90 19 124/76 Pulse Ox 12/12/19 08:00 96 12/12/19 07:31 98 12/12/19 07:23 96 12/12/19 07:00 12/12/19 06:31 95 12/12/19 06:00 94 12/12/19 05:31 95 12/12/19 05:15 12/12/19 05:00 94 12/12/19 04:57 95 12/12/19 04:31 96 12/12/19 04:00 97 12/12/19 03:41 98 12/12/19 03:39 12/12/19 03:31 95 12/12/19 03:28 12/12/19 03:00 94 12/12/19 02:31 95 12/12/19 02:00 93 12/12/19 01:31 95 12/12/19 01:00 94 12/12/19 00:31 96 12/12/19 00:01 93 12/11/19 23:52 95 12/11/19 23:31 95 12/11/19 23:11 12/11/19 23:03 94 12/11/19 23:00 93 12/11/19 22:31 96 12/11/19 22:29 12/11/19 22:00 93 12/11/19 21:31 96 12/11/19 21:00 12/11/19 20:31 98 12/11/19 20:16 98 12/11/19 20:00 98 12/11/19 19:31 12/11/19 19:00 97 12/11/19 18:31 98 12/11/19 18:01 95 12/11/19 17:31 97 12/11/19 17:00 96 12/11/19 16:31 97 12/11/19 16:00 95 12/11/19 15:31 97 12/11/19 15:00 94 12/11/19 14:31 96 12/11/19 14:00 12/11/19 13:31 98 12/11/19 13:22 12/11/19 13:00 12/11/19 12:31 93 12/11/19 12:00 92 12/11/19 11:48 94 12/11/19 11:31 94 12/11/19 11:00 - Physical Examination General: Other (intubated) HEENT: Positive: PERRL Neck: Positive: neck supple Cardiac: Positive: Reg Rate and Rhythm Lungs: Positive: Decreased Breath Sounds Neuro: Positive: Other (Intubated and sedated, on the vent) Abdomen: Positive: Soft Skin: Positive: Clear Extremities: Absent: edema - Labs and Meds CBC 12/12/19 Range/Units 05:53 Hgb 8.8 L (11.8-15.2) gm/dl Hct 27.6 L (35.5-45.6) % Plt Count 246 (140-440) K/mm3 - Allied health notes Allied health notes reviewed: nursing
--- NOTE | 2019-12-12 11:03 | Event Note ---
Date: 12/12/19 Patient remains on heparin drip. Review of the CT scan of his chest demonstrates only a tiny pulmonary embolus involving a single artery. His PE is unlikely to be associated with the patient's respiratory conditioning given his multiple other comorbidities. If the patient becomes unable to tolerate heparin drip, at that point in time, would consider placing an IVC filter as the patient does have iliofemoral DVT.
[2019-12-12] MEDS: LORazepam 2 MG/ML VIAL IV PRN (12:07)
--- NOTE | 2019-12-12 14:34 | Progress Note ---
Assessment and Plan -Acute LLL PE -Acute RLE DVT -Persistent fevers; secondary to sepsis and acute PE/DVT -Severe sepsis; secondary to bilateral pneumonia, persistent fevers -Acute hypoxemic respiratory failure, on vent unable to wean -Bilateral pneumonia, community acquired, -Aspiration Pneumonia -Sustained SVT, on amiodarone -Acute on chronic systolic congestive heart failure -History of cerebrovascular accident. -Tobacco use disorder -Alcohol abuse with DT -Acute chronic obstructive pulmonary disease exacerbation. -Hypertension and hypertensive urgency at presentation. -History of arthritis. -Paroxysmal atrial fibrillation -Leukocytosis with possible sepsis. -Lactic acidosis. -Bleeding from ET tube -Oropharyngeal dysphagia -S/P Knee surgery -History of peptic Ulcer Surgery -DVT prophylaxis COVID-19 test; 11/24/2019; negative 11/26/2019; negative Plan Continue ventilatory support, Wean as tolerated and extubate., Pulmonary critical care following Completed ceftriaxone and azithromycin for total 5 days per ID ID now started cefepime and Vanco Continue anti-failure medications, cardiology following cont Steroids, Continue diuresis as needed Aspiration precautions Continue amiodarone and metoprolol for suppression of paroxysmal atrial fibrillation. Anticoagulation currently is with intravenous heparin - was brefly on hold for bleeding from ET tube DVT/GI prophy Heparin/Protonix Plan of care reviewed with the patient's nurse Closely monitor the patient and adjust management as needed The high probability of a clinically significant, sudden or life threatening deterioration of the [Respiratory, cardiovascular & neurological] system(s) required my full and direct attention, intervention and personal management. The aggregate critical care time was [33] minutes without overlap. Time includes spent on [x] Data Review and interpretation [x] Patient assessment and monitoring of vital signs [x] Documentation [x] Medication orders and management Brief History Patient is a 64-year-old male with known history of hypertension, COPD, history of coronary artery disease, CHF with ejection fraction of 20 to 25% in August 2018 presenting to the emergency room via EMS complaining of shortness of breath. Patient was found to be hypoxic and in respiratory distress. Patient was placed on CPAP in route to the hospital. Oxygen saturation was said to be 88%. Started on Solu-Medrol, Lasix and magnesium in ED, patient was also found to be lethargic with an oxygen saturation of about 91% on CPAP. He was subsequently intubated. Work-up in the emergency room including chest x-ray reveals bilateral pneumonia. He had an elevated white count of 14 and also had an elevated BNP. Patient to be admitted to the ICU and placed on empiric IV antibiotics for pneumonia. He will also be tested positive for COVID-19 and placed on isolation precautions. Rmains intubated on ventilatory support, sputum cultures positive for Pseudomonas, ID changed antibiotics to cefepime and Vanco. 11/25: Leukocytosis improving. Continue current management anticipate extubation possible today. 11/26. Still intubated. Failed SBT yesterday. Repeat COVID-19 test is negative. 11/27. CT head ordered for possible neuro status change is negative. More responsive as the day progressed as per RN. Chest xray today shows interval improvement. He is still on antibiotics - will complete regimen today. 11/28: Considering difficult extubation and severe cardiomyopathy, will obtain cardiology consult. Aspiration precautions, tube feeds held, continue antibiotics. 11/29: Still with intermittent fever but improving imaging, continue diuresis. 11/30; Extremely agitated when placed on PSV- SVT, hypertension. Patiet acknowledged that he drinks. IV Ativan given, CIWA protocol initiated. 12 lead ordered showed SVT, one dose of amiodarone ordered. continue to follow up cardiology recommendation 12/01: Patient remains on mechanical ventilation, getting SBT trial. Remains in SVT, started on amiodarone drip by cardiology. 12/02; patient is on mechanical ventilation and on spontaneous breathing trial. Cardiology started the patient on PO amiodarone. Patient is on cefepime. 12/03: patient is on mechanical ventilation. Cardiology started the patient on PO amiodarone for SVT. Patient is on cefepime, no fever overnight. 12/04: Patient is sedated and on mechanical ventilation. Patient had fever yesterday afternoon 102.3, ID changed his cefepime to meropenem. Heart rate is controlled, cardiology is following. Patient has paroxysmal atrial fibrillation and on amiodarone and metoprolol, subcu heparin for anticoagulation and will need oral anticoagulation once stable. 12/05: Sputum cultures positive for Pseudomonas, ID following 12/06; patient is febrile T-max 24 hours 102 F ,ID change antibiotics to cefepime and Vancomycin 12/07: resumed care. Na 149 today, start on 03/26 NS. cont current care 12/08: remains in a stable sinus rhythm and stable blood pressure, continue s upportive care. wean off vent as tolerated. persistent fever - ordered CTA chest 12/09: noted bloody discharges from ET tube last night. CTA and LE venous doppler positive for acute PE and DVT. resume heparin drip, consult vascular for possible EKOS/ IVC filter. monitor h/h. cont SBT trial, wean off vent as tolerated. called but no answer 12/10: cont heparin drip for acute PE and DVT, follow vascular recommendation. monitor h/h, wean off vent as tolerated 12/11: o/n had bleeding from ET tube, cont to monitor h/h. vascular recommending medical Mx. called ; Nicolle Araiza . Subjective Date of service: 12/12/19 Principal diagnosis: Ac hypoxemic resp failure; Pneumonia; PUI COVID-19; CHF; COPD; HTN Interval history: Patient seen and examined Patient intubated on mechanical ventilation Discussed with RN at the bedside Intermittent bleeding from ET tube while suctioning H/H STABLE, patient remains on heparin drip Objective - Exam Narrative Exam: General appearance: Present: well-nourished, other (Intubated), opens eyes to names and follows minor command - EENT Eyes: Present: PERRL, EOM intact. Absent: scleral icterus ENT: clear oral mucosa, dentition normal - Neck Neck: Present: supple, normal ROM - Respiratory Respiratory effort: normal, mechanical ventilation Respiratory: bilateral: rales - Cardiovascular Rhythm: regular Heart Sounds: Present: S1 & S2, tachycardic. Absent: gallop, systolic murmur, diastolic murmur, rub - Extremities Extremities: no ischemia, pulses intact, pulses symmetrical, No edema, Full ROM Peripheral Pulses: within normal limits - Abdominal General gastrointestinal: Present: soft, non-tender, non-distended, normal bowel sounds. Absent: mass - Integumentary Integumentary: Present: clear, warm, dry. Absent: rash - Musculoskeletal Musculoskeletal: no joint swelling - Psychiatric Psychiatric: sedated Neurology: no focal deficits - Constitutional Vitals: Vital Signs - 12hr 12/12/19 12/12/19 12/12/19 03:00 03:28 03:31 Temperature 98.9 F Pulse Rate 75 77 Pulse Rate [ Anterior Bilateral Throughout] Pulse Rate [ From Monitor] Respiratory 14 16 Rate Respiratory Rate [Anterior Bilateral Throughout] Blood Pressure 117/71 117/71 O2 Sat by Pulse 94 95 Oximetry 12/12/19 12/12/19 12/12/19 03:39 03:41 04:00 Temperature Pulse Rate 71 77 Pulse Rate [ Anterior Bilateral Throughout] Pulse Rate [ 82 From Monitor] Respiratory 13 Rate Respiratory Rate [Anterior Bilateral Throughout] Blood Pressure 123/78 O2 Sat by Pulse 98 97 Oximetry 12/12/19 12/12/19 12/12/19 04:31 04:57 05:00 Temperature Pulse Rate 80 78 78 Pulse Rate [ 77 Anterior Bilateral Throughout] Pulse Rate [ From Monitor] Respiratory 16 13 Rate Respiratory 15 Rate [Anterior Bilateral Throughout] Blood Pressure 123/78 123/78 114/70 O2 Sat by Pulse 96 95 94 Oximetry 12/12/19 12/12/19 12/12/19 05:15 05:31 06:00 Temperature Pulse Rate 79 78 77 Pulse Rate [ Anterior Bilateral Throughout] Pulse Rate [ From Monitor] Respiratory 13 17 Rate Respiratory Rate [Anterior Bilateral Throughout] Blood Pressure 114/70 114/70 114/75 O2 Sat by Pulse 95 94 Oximetry 12/12/19 12/12/19 12/12/19 06:31 07:00 07:23 Temperature Pulse Rate 76 73 75 Pulse Rate [ 85 Anterior Bilateral Throughout] Pulse Rate [ From Monitor] Respiratory 15 17 Rate Respiratory 15 Rate [Anterior Bilateral Throughout] Blood Pressure 114/75 120/71 120/71 O2 Sat by Pulse 95 96 Oximetry 12/12/19 12/12/19 12/12/19 07:31 08:00 08:31 Temperature 99.0 F Pulse Rate 78 79 81 Pulse Rate [ Anterior Bilateral Throughout] Pulse Rate [ 79 From Monitor] Respiratory 14 18 17 Rate Respiratory Rate [Anterior Bilateral Throughout] Blood Pressure 120/71 113/78 113/78 O2 Sat by Pulse 98 96 96 Oximetry 12/12/19 12/12/19 12/12/19 09:00 09:31 10:00 Temperature Pulse Rate 84 82 81 Pulse Rate [ Anterior Bilateral Throughout] Pulse Rate [ From Monitor] Respiratory 17 16 17 Rate Respiratory Rate [Anterior Bilateral Throughout] Blood Pressure 122/84 122/84 124/79 O2 Sat by Pulse 96 94 92 Oximetry 12/12/19 12/12/19 12/12/19 10:30 11:00 11:30 Temperature Pulse Rate 82 83 77 Pulse Rate [ Anterior Bilateral Throughout] Pulse Rate [ From Monitor] Respiratory 11 L 18 17 Rate Respiratory Rate [Anterior Bilateral Throughout] Blood Pressure 124/79 117/81 117/81 O2 Sat by Pulse 95 92 97 Oximetry 12/12/19 12/12/19 12/12/19 12:00 12:20 12:30 Temperature 98.4 F Pulse Rate 65 100 H 106 H Pulse Rate [ Anterior Bilateral Throughout] Pulse Rate [ From Monitor] Respiratory 28 H 24 Rate Respiratory Rate [Anterior Bilateral Throughout] Blood Pressure 117/81 134/90 116/60 O2 Sat by Pulse 90 90 90 Oximetry 12/12/19 12/12/19 12/12/19 13:00 13:30 13:32 Temperature Pulse Rate 101 H 99 H Pulse Rate [ 97 H Anterior Bilateral Throughout] Pulse Rate [ From Monitor] Respiratory 20 18 Rate Respiratory 15 Rate [Anterior Bilateral Throughout] Blood Pressure 116/60 116/60 O2 Sat by Pulse 89 88 Oximetry 12/12/19 12/12/19 13:56 14:00 Temperature Pulse Rate 96 H 94 H Pulse Rate [ Anterior Bilateral Throughout] Pulse Rate [ From Monitor] Respiratory 16 Rate Respiratory Rate [Anterior Bilateral Throughout] Blood Pressure 134/90 148/82 O2 Sat by Pulse 89 Oximetry - Labs CBC & Chem 7: 12/13/19 05:32 12/13/19 05:32 Labs: Abnormal lab results 12/11/19 12/12/19 12/12/19 Range/Units 17:15 00:03 05:53 Hgb 8.8 L (11.8-15.2) gm/dl Hct 27.6 L (35.5-45.6) % Heparin Anti-Xa Level (0.3-0.7) U.I./ml POC Glucose 109 H 116 H (70-105) 12/12/19 12/12/19 Range/Units 05:53 12:18 Hgb (11.8-15.2) gm/dl Hct (35.5-45.6) % Heparin Anti-Xa Level 0.22 L (0.3-0.7) U.I./ml POC Glucose 146 H (70-105) HEART Score - HEART Score Troponin: Troponin T < 0.010 ng/mL (0.00-0.029) 11/24/19 02:53
[2019-12-12] MEDS ORDERED: FUROSEMIDE 40 MG/4 ML INJ IV ONE (17:03)
--- NOTE | 2019-12-12 18:12 | Progress Note ---
Assessment and Plan Cultures: Blood culture 12/02/2019 negative Blood culture 11/24/2019 negative Urine culture 11/24/2019 negative COVID-19 negative x2 12/04/2019 resp culture: PsA 12/06/2019 blood cultures: No growth today A/P: 64-year-old male past medical history hypertension, COPD, CAD, CHF with reduced ejection fraction admitted with acute hypoxic respiratory failure likely secondary to pneumonia #Sepsis: With persistent fever 100.3, unclear etiology possible due to pneumonia. Procalcitonin improving, from 1.5-->0.6. #Acute hypoxemic respiratory failure: Likely secondary to pneumonia, COVID-19 testing negative x 2. Remains intubated, on CPAP trial #Bilateral pneumonia: COVID-19 negative twice. Culture growing Pseudomonas, pansensitive. Repeat chest x-ray with persistent right base opacity. ? Non-res olving pneumonia #CHF: per primary team #COPD: per pulmonary #Elevated LFTs: worsening ? sepsis ?cholecystitis #PE: on heparin now. Recs: -RUQ US eval for cholecystitis -unremarkable gallbladder -Continue cefepime IV for now - day 7 -Continue vancomycin with PK consult - day 6 -Obtain MRSA PCR-pending, reordered -Monitor LFTs Michael Wade MD [facility] ([facility]) M: [phone] O: [phone] F: [phone] Subjective Date of service: 12/12/19 Principal diagnosis: Ac hypoxemic resp failure; Pneumonia; PUI COVID-19; CHF; COPD; HTN Interval history: Afebrile, no acute change. Remains mechanically ventilated. Objective - Exam Narrative Exam: Constitutional: Alert intubated Head, Ears, Nose: Normocephalic, atraumatic. External ears, nose normal Oral: ETT in place, OG tube in place Eyes: Conjunctivae/corneas clear. No icterus. No ptosis. Neck: Supple, no meningeal signs Cardiovascular: RRR Respiratory: diminished GI: Soft, non-tender; bowel sounds normal. No peritoneal signs Musculoskeletal: Left hand swelling left arm with swelling Skin: No rash or abscess Hem/Lymphatic: No palpable cervical or supraclavicular nodes. No lymphangitis Psych: Alert Neurological: Alert - Constitutional Vitals: Vital Signs Temp Pulse Resp BP Pulse Ox 99.0 F 90 14 133/92 92 12/12/19 16:00 12/12/19 16:20 12/12/19 15:00 12/12/19 15:15 12/12/19 15:15 Temperature -Last 24 Hours Temperature 99.0 F Temperature 98.4 F Temperature 99.0 F Temperature 98.9 F Temperature 98.5 F Temperature 99.8 F - Labs CBC & Chem 7: 12/12/19 05:53 12/11/19 08:36 Labs: Abnormal lab results 12/12/19 12/12/19 12/12/19 Range/Units 00:03 05:53 05:53 Hgb 8.8 L (11.8-15.2) gm/dl Hct 27.6 L (35.5-45.6) % Heparin Anti-Xa Level 0.22 L (0.3-0.7) U.I./ml POC Glucose 116 H (70-105) 12/12/19 12/12/19 12/12/19 Range/Units 09:38 12:18 17:44 Hgb (11.8-15.2) gm/dl Hct (35.5-45.6) % Heparin Anti-Xa Level (0.3-0.7) U.I./ml POC Glucose 115 H 146 H 146 H (70-105)
[2019-12-12] MEDS: POLYETHYLENE GLYCOL 3350 17 GM POWDER PO SCH (21:31)
[2019-12-12] MEDS: QUEtiapine 100 MG TAB PO SCH (21:31)
[2019-12-13] MEDS: INSULIN LISPRO 100 UNIT/ML VIAL 3 mL SUB-Q SCH ×4 (00:42→18:24)
[2019-12-13] MEDS: HEPARIN/ 0.45% NACL DRIP 25,000 UNIT/500 ML BAG IV SCH ×2 (01:38→19:05)
[2019-12-13] MEDS: fentaNYL DRIP Premix 2,000 MCG/100 ML BAG IV SCH ×4 (03:45→21:50)
[2019-12-13] MEDS: ALBUTEROL 2.5 MG/3 ML NEBU IH SCH ×3 (04:30→14:57)
[2019-12-13] MEDS: VANCOMYCIN 1,500 MG in SODIUM CHLORIDE 0.9% 500 ML 500 ML IV SCH ×2 (04:36→15:15)
[2019-12-13] MEDS: CEFEPIME/NS 2 GM/100 ML 2 GM/100 ML BAG IV SCH ×3 (05:36→21:54)
[2019-12-13] MEDS: METOPROLOL TARTRATE 50 MG TAB PO SCH ×3 (05:44→21:52)
[2019-12-13 06:08] LABS: Hematocrit 29.3 % (35.5-45.6); Hemoglobin 9.5 gm/dl (11.8-15.2); Mean Corpuscular HGB Conc 32 % (32-34); Mean Corpuscular Volume 90 fl (84-94); Platelet Count 312 K/mm3 (140-440); Red Blood Count 3.27 M/mm3 (3.65-5.03); Red Cell Distribution Width 15.6 % (13.2-15.2)
[2019-12-13 06:21] LABS: Blood Urea Nitrogen 18 mg/dL (9-20); Calcium 9.2 mg/dL (8.4-10.2); Hemolysis Index 3
[2019-12-13 06:25] LABS: BUN/Creatinine Ratio 30
[2019-12-13 07:04] LABS: Anisocytosis 1+; Band Neutrophils # (Manual) 0.1 K/mm3; Platelet Estimate Consistent w Auto; Total Cells Counted 100
--- NOTE | 2019-12-13 09:26 | XRay Report ---
CHEST 1 VIEW INDICATION / CLINICAL INFORMATION: respiratory failure, alveolar edema. COMPARISON: CT anterior chest 12/10/2019 FINDINGS: SUPPORT DEVICES: Stable, satisfactory device positioning. HEART / MEDIASTINUM: Stable. LUNGS / PLEURA: Patchy airspace disease with consolidative change worst in the right lower lung. Smal l bilateral pleural effusions. No pneumothorax. ADDITIONAL FINDINGS: No significant additional findings. IMPRESSION: 1. Patchy airspace disease with consolidation worse in the right lower lung. Small bilateral pleural effusions. Findings likely similar when compared to CT examination 12/10/2019 Signer Name: Chaz Ramos MD Signed: 12/13/2019 9:22 AM Workstation Name: [id number]
[2019-12-13] MEDS: DOCUSATE SODIUM 100 MG/10 ML ORAL LIQD FEEDTUBE SCH ×2 (09:44→21:51)
[2019-12-13] MEDS: AMIODARONE 200 MG TAB PO SCH ×2 (09:44→21:51)
[2019-12-13] MEDS: FAMOTIDINE 20 MG TAB PO SCH ×2 (09:44→21:51)
[2019-12-13] MEDS: QUEtiapine 25 MG TAB PO SCH (09:44)
--- NOTE | 2019-12-13 10:36 | Progress Note ---
Assessment and Plan Acute hypoxemic respiratory failure Bilateral pneumonia, community acquired. Acute congestive heart failure exacerbation. History of cerebrovascular accident. Acute chronic obstructive pulmonary disease exacerbation. Hypertension and hypertensive urgency at presentation. History of arthritis. Oropharyngeal dysphagia Right Lext DVT Pulmonary embolism Heparin infusion, while monitoring for bleeding SBTs as toelrated Gentle diuresis, IV lasix ordered CXR in am -conservative fluid management -Discussed wiht primary Attending- if we are unable to liberate from MVS in the next week, he needs tracheostomy placement - continue to monitor renal function, hemodynamics and electrolyte profile - continue to wean oxygen for O2 sats > 90% - continue bronchodilators with pulmonary hygiene per RT - VAP bundle addressed (Aspiration precautions, HOB >40) - continue to wean per pulmonary driven protocols - continue prn analgesia per CPOT score - follow clinically re: fever curves / trend WBC - Avoid delirium (no benzodiazepines if they can be avoided) - Enteral nutrition at goal rate as tolerated - continue accuchecks with glycemic control per SSI for target blood glucose goal of 140-180 mg/dL while critically ill; Avoid hypoglycemia - continue VTE prophylaxis with Heparin - continue stress ulcer prophylaxis with Famotidine - continue mobility protocols for pressure ulcer prophylaxis - continue fall precautions - continue wound care management per RN / WCT - Supportive transfusions as indicated to keep HgB>7g/dL - Continue to monitor neurologic function - Continue chronic home medications as clinically indicated - Continue all supportive care CONDITION: CRITICAL PROGNOSIS: GUARDED CODE STATUS: FULL CODE The high probability of a clinically significant, sudden or life threatening deterioration of the [Respiratory, cardiovascular & neurological] system(s) required my full and direct attention, intervention and personal management. The aggregate critical care time was [33] minutes without overlap. Time includes spent on [x] Data Review and interpretation [x] Patient assessment and monitoring of vital signs [x] Documentation [x] Medication orders and management Subjective Date of service: 12/13/19 Principal diagnosis: Ac hypoxemic resp failure; Pneumonia; PUI COVID-19; CHF; COPD; HTN Interval history: Patient is seen today for: Acute hypoxemic respiratory failure; Adan. Pneumonia (CAP); PUI COVID-19 infection; AE-CHF; AE-COPD; H/O CVA; HTN; PE, DVT Seen and examined at bedside; 24 hour events reviewed; nursing and respiratory care staff consulted; no adverse overnight events reported to me; resting peacefully in bed; ETT in place. No asynchrony, Vent 500/12/8/40%. On Fentanyl at 2 mcg, heparin infusion. In consistently tolerates weaning trials Objective Vital Signs - 12hr 12/12/19 12/12/19 12/12/19 23:00 23:16 23:30 Temperature Pulse Rate 76 77 78 Pulse Rate [ Anterior Bilateral Throughout] Pulse Rate [ From Monitor] Respiratory 14 15 13 Rate Respiratory Rate [Anterior Bilateral Throughout] Blood Pressure 125/73 125/73 125/73 O2 Sat by Pulse 92 94 96 Oximetry 12/13/19 12/13/19 12/13/19 00:00 00:02 00:30 Temperature 99.1 F Pulse Rate 79 76 78 Pulse Rate [ Anterior Bilateral Throughout] Pulse Rate [ 79 From Monitor] Respiratory 15 14 Rate Respiratory Rate [Anterior Bilateral Throughout] Blood Pressure 114/71 114/71 125/73 O2 Sat by Pulse 95 97 96 Oximetry 12/13/19 12/13/19 12/13/19 01:00 01:30 02:00 Temperature Pulse Rate 78 78 79 Pulse Rate [ Anterior Bilateral Throughout] Pulse Rate [ From Monitor] Respiratory 12 13 15 Rate Respiratory Rate [Anterior Bilateral Throughout] Blood Pressure 118/71 114/71 108/76 O2 Sat by Pulse 96 96 92 Oximetry 12/13/19 12/13/19 12/13/19 02:30 03:00 03:30 Temperature Pulse Rate 80 79 84 Pulse Rate [ Anterior Bilateral Throughout] Pulse Rate [ From Monitor] Respiratory 13 14 14 Rate Respiratory Rate [Anterior Bilateral Throughout] Blood Pressure 108/76 111/74 111/74 O2 Sat by Pulse 96 93 95 Oximetry 12/13/19 12/13/19 12/13/19 03:41 04:00 04:30 Temperature 99.0 F Pulse Rate 82 91 H Pulse Rate [ 92 H Anterior Bilateral Throughout] Pulse Rate [ 82 From Monitor] Respiratory 12 15 Rate Respiratory 17 Rate [Anterior Bilateral Throughout] Blood Pressure 128/71 128/71 O2 Sat by Pulse 90 93 Oximetry 12/13/19 12/13/19 12/13/19 05:00 05:30 05:44 Temperature Pulse Rate 96 H 85 82 Pulse Rate [ Anterior Bilateral Throughout] Pulse Rate [ From Monitor] Respiratory 15 12 Rate Respiratory Rate [Anterior Bilateral Throughout] Blood Pressure 128/71 128/71 113/67 O2 Sat by Pulse 93 96 Oximetry 12/13/19 12/13/19 12/13/19 06:00 06:30 07:00 Temperature Pulse Rate 79 77 75 Pulse Rate [ Anterior Bilateral Throughout] Pulse Rate [ From Monitor] Respiratory 11 L 10 L 11 L Rate Respiratory Rate [Anterior Bilateral Throughout] Blood Pressure 112/67 112/67 110/68 O2 Sat by Pulse 88 95 94 Oximetry 12/13/19 12/13/19 12/13/19 07:30 08:00 08:27 Temperature 98.7 F Pulse Rate 74 74 76 Pulse Rate [ 84 Anterior Bilateral Throughout] Pulse Rate [ 74 From Monitor] Respiratory 13 10 L Rate Respiratory 17 Rate [Anterior Bilateral Throughout] Blood Pressure 110/68 107/64 107/64 O2 Sat by Pulse 97 93 94 Oximetry 12/13/19 12/13/19 12/13/19 08:30 08:51 09:00 Temperature Pulse Rate 74 90 81 Pulse Rate [ Anterior Bilateral Throughout] Pulse Rate [ From Monitor] Respiratory 9 L 15 12 Rate Respiratory Rate [Anterior Bilateral Throughout] Blood Pressure 107/64 107/64 107/71 O2 Sat by Pulse 94 96 92 Oximetry 12/13/19 09:30 Temperature Pulse Rate 76 Pulse Rate [ Anterior Bilateral Throughout] Pulse Rate [ From Monitor] Respiratory 7 L Rate Respiratory Rate [Anterior Bilateral Throughout] Blood Pressure 107/71 O2 Sat by Pulse 97 Oximetry Constitutional: no acute distress, agitated, other (elderly and obese male, normocephalic with mildly increased respiratory effort at rest on MVS) Eyes: non-icteric ENT: oropharynx moist, other (ETT 24 cm JASON) Neck: supple, no JVD Effort: very labored Ascultation: Bilateral: clear, diminished breath sounds, rhonchi (scant; improved RLL air entry also) Percussion: Bilateral: not dull Cardiovascular: irregular rhythm Gastrointestinal: normoactive bowel sounds, soft, non-tender, non-distended Integumentary: normal Extremities: no cyanosis, no edema, pulses normal, no ischemia or petechiae Neurologic: non-focal exam (moves all extremities with extreme agitation), pupils equal and round, motor strength normal and, other (sedated lightly) Psychiatric: mood appropriate, affect normal CBC and BMP: 12/15/19 05:29 12/15/19 05:29 ABG, PT/INR, D-dimer: ABG ABG pH 7.439 (7.320-7.450) 12/02/19 12:58 POC ABG pCO2 45.1 mmHg (32.0-48.0) 12/02/19 12:58 ABG pCO2 43.4 mm Hg 11/30/19 04:56 POC ABG pO2 78.1 mmHg (83-108) L 12/02/19 12:58 ABG pO2 56.3 mm Hg (80.0-90.0) L 11/30/19 04:56 POC ABG HCO3 29.9 12/02/19 12:58 ABG O2 Saturation 91.5 % (95.0-99.0) L 11/30/19 04:56 PT/INR, D-dimer PT 14.0 Sec. (12.2-14.9) 12/10/19 21:20 INR 1.06 (0.87-1.13) 12/10/19 21:20 Abnormal lab findings: Abnormal Labs 11/24/19 11/24/19 11/24/19 02:53 02:53 03:45 WBC 14.3 H RBC Hgb Hct MCHC RDW 17.2 H Lymph % (Auto) Thomas % (Auto) Thomas # Eos # Seg Neutrophils % Seg Neuts % (Manual) Lymphocytes % (Manual) Monocytes % (Manual) Eosinophils % (Manual) Basophils % (Manual) Seg Neutrophils # Seg Neutrophils # Man 8.3 H Lymphocytes # (Manual) Monocytes # (Manual) 0.9 H Eosinophils # (Manual) Basophils # (Manual) Heparin Anti-Xa Level ABG pH 7.313 L POC ABG pO2 ABG pO2 102.8 H ABG HCO3 ABG O2 Saturation ABG Base Excess -2.9 L ABG Hemoglobin ABG Oxyhemoglobin Oxyhemoglobin 93.9 L Sodium Potassium Chloride Carbon Dioxide BUN Creatinine Glucose 195 H POC Glucose Lactic Acid Calcium Phosphorus Magnesium AST ALT Lactate Dehydrogenase CK-MB (CK-2) 4.3 H C-Reactive Protein NT-Pro-B Natriuret Pep 1181 H Total Protein Albumin Urine WBC (Auto) 11/24/19 11/24/19 11/24/19 04:53 04:53 10:37 WBC RBC Hgb Hct MCHC RDW Lymph % (Auto) Thomas % (Auto) Thomas # Eos # Seg Neutrophils % Seg Neuts % (Manual) Lymphocytes % (Manual) Monocytes % (Manual) Eosinophils % (Manual) Basophils % (Manual) Seg Neutrophils # Seg Neutrophils # Man Lymphocytes # (Manual) Monocytes # (Manual) Eosinophils # (Manual) Basophils # (Manual) Heparin Anti-Xa Level ABG pH POC ABG pO2 ABG pO2 ABG HCO3 ABG O2 Saturation ABG Base Excess ABG Hemoglobin ABG Oxyhemoglobin Oxyhemoglobin Sodium Potassium Chloride Carbon Dioxide BUN Creatinine Glucose 162 H POC Glucose Lactic Acid 2.40 H* 2.50 H* Calcium Phosphorus Magnesium AST ALT Lactate Dehydrogenase 240 H CK-MB (CK-2) C-Reactive Protein NT-Pro-B Natriuret Pep Total Protein Albumin Urine WBC (Auto) 11/24/19 11/24/19 11/24/19 12:21 14:50 19:54 WBC RBC Hgb Hct MCHC RDW Lymph % (Auto) Thomas % (Auto) Thomas # Eos # Seg Neutrophils % Seg Neuts % (Manual) Lymphocytes % (Manual) Monocytes % (Manual) Eosinophils % (Manual) Basophils % (Manual) Seg Neutrophils # Seg Neutrophils # Man Lymphocytes # (Manual) Monocytes # (Manual) Eosinophils # (Manual) Basophils # (Manual) Heparin Anti-Xa Level ABG pH POC ABG pO2 ABG pO2 ABG HCO3 ABG O2 Saturation ABG Base Excess ABG Hemoglobin ABG Oxyhemoglobin Oxyhemoglobin Sodium Potassium Chloride Carbon Dioxide BUN Creatinine Glucose POC Glucose 145 H 143 H 124 H Lactic Acid Calcium Phosphorus Magnesium AST ALT Lactate Dehydrogenase CK-MB (CK-2) C-Reactive Protein NT-Pro-B Natriuret Pep Total Protein Albumin Urine WBC (Auto) 11/25/19 11/25/19 11/25/19 00:18 03:18 05:11 WBC 13.7 H RBC Hgb Hct MCHC RDW 17.1 H Lymph % (Auto) 10.8 L Thomas % (Auto) 8.7 H Thomas # 1.2 H Eos # Seg Neutrophils % 80.2 H Seg Neuts % (Manual) Lymphocytes % (Manual) Monocytes % (Manual) Eosinophils % (Manual) Basophils % (Manual) Seg Neutrophils # 11.0 H Seg Neutrophils # Man Lymphocytes # (Manual) Monocytes # (Manual) Eosinophils # (Manual) Basophils # (Manual) Heparin Anti-Xa Level ABG pH 7.333 L POC ABG pO2 ABG pO2 61.2 L ABG HCO3 ABG O2 Saturation 90.2 L ABG Base Excess ABG Hemoglobin 13.7 L ABG Oxyhemoglobin Oxyhemoglobin 88.2 L Sodium Potassium Chloride Carbon Dioxide BUN Creatinine Glucose POC Glucose 109 H Lactic Acid Calcium Phosphorus Magnesium AST ALT Lactate Dehydrogenase CK-MB (CK-2) C-Reactive Protein NT-Pro-B Natriuret Pep Total Protein Albumin Urine WBC (Auto) 11/25/19 11/25/19 11/26/19 05:11 11:40 03:12 WBC RBC Hgb Hct MCHC RDW Lymph % (Auto) Thomas % (Auto) Thomas # Eos # Seg Neutrophils % Seg Neuts % (Manual) Lymphocytes % (Manual) Monocytes % (Manual) Eosinophils % (Manual) Basophils % (Manual) Seg Neutrophils # Seg Neutrophils # Man Lymphocytes # (Manual) Monocytes # (Manual) Eosinophils # (Manual) Basophils # (Manual) Heparin Anti-Xa Level ABG pH POC ABG pO2 ABG pO2 155.1 H ABG HCO3 27.8 H ABG O2 Saturation ABG Base Excess ABG Hemoglobin 12.2 L ABG Oxyhemoglobin Oxyhemoglobin Sodium Potassium Chloride Carbon Dioxide BUN 23 H Creatinine Glucose 110 H POC Glucose 108 H Lactic Acid Calcium Phosphorus Magnesium AST ALT Lactate Dehydrogenase CK-MB (CK-2) C-Reactive Protein NT-Pro-B Natriuret Pep Total Protein Albumin Urine WBC (Auto) 11/26/19 11/26/19 11/26/19 06:17 10:43 10:43 WBC 11.4 H RBC Hgb Hct MCHC RDW 17.1 H Lymph % (Auto) Thomas % (Auto) Thomas # Eos # Seg Neutrophils % Seg Neuts % (Manual) Lymphocytes % (Manual) Monocytes % (Manual) Eosinophils % (Manual) Basophils % (Manual) Seg Neutrophils # Seg Neutrophils # Man Lymphocytes # (Manual) Monocytes # (Manual) Eosinophils # (Manual) Basophils # (Manual) Heparin Anti-Xa Level ABG pH POC ABG pO2 ABG pO2 ABG HCO3 ABG O2 Saturation ABG Base Excess ABG Hemoglobin ABG Oxyhemoglobin Oxyhemoglobin Sodium Potassium Chloride Carbon Dioxide BUN 29 H Creatinine Glucose POC Glucose 107 H Lactic Acid Calcium Phosphorus Magnesium AST ALT Lactate Dehydrogenase CK-MB (CK-2) C-Reactive Protein NT-Pro-B Natriuret Pep Total Protein Albumin Urine WBC (Auto) 11/26/19 11/27/19 11/27/19 17:11 01:53 04:11 WBC RBC Hgb Hct MCHC RDW Lymph % (Auto) Thomas % (Auto) Thomas # Eos # Seg Neutrophils % Seg Neuts % (Manual) Lymphocytes % (Manual) Monocytes % (Manual) Eosinophils % (Manual) Basophils % (Manual) Seg Neutrophils # Seg Neutrophils # Man Lymphocytes # (Manual) Monocytes # (Manual) Eosinophils # (Manual) Basophils # (Manual) Heparin Anti-Xa Level ABG pH POC ABG pO2 ABG pO2 ABG HCO3 29.2 H ABG O2 Saturation ABG Base Excess 3.4 H ABG Hemoglobin 13.3 L ABG Oxyhemoglobin Oxyhemoglobin 94.5 L Sodium Potassium Chloride Carbon Dioxide BUN Creatinine Glucose POC Glucose 113 H 108 H Lactic Acid Calcium Phosphorus Magnesium AST ALT Lactate Dehydrogenase CK-MB (CK-2) C-Reactive Protein NT-Pro-B Natriuret Pep Total Protein Albumin Urine WBC (Auto) 11/27/19 11/28/19 11/28/19 05:27 05:00 05:25 WBC RBC Hgb Hct MCHC RDW Lymph % (Auto) Thomas % (Auto) Thomas # Eos # Seg Neutrophils % Seg Neuts % (Manual) Lymphocytes % (Manual) Monocytes % (Manual) Eosinophils % (Manual) Basophils % (Manual) Seg Neutrophils # Seg Neutrophils # Man Lymphocytes # (Manual) Monocytes # (Manual) Eosinophils # (Manual) Basophils # (Manual) Heparin Anti-Xa Level ABG pH POC ABG pO2 68.1 L ABG pO2 ABG HCO3 ABG O2 Saturation ABG Base Excess ABG Hemoglobin ABG Oxyhemoglobin 91.2 L Oxyhemoglobin Sodium Potassium Chloride Carbon Dioxide BUN Creatinine Glucose POC Glucose 111 H 110 H Lactic Acid Calcium Phosphorus Magnesium AST ALT Lactate Dehydrogenase CK-MB (CK-2) C-Reactive Protein NT-Pro-B Natriuret Pep Total Protein Albumin Urine WBC (Auto) 11/28/19 11/28/19 11/28/19 12:08 13:47 13:47 WBC 11.3 H RBC Hgb Hct MCHC RDW 16.1 H Lymph % (Auto) Thomas % (Auto) 9.9 H Thomas # 1.1 H Eos # Seg Neutrophils % 71.4 H Seg Neuts % (Manual) Lymphocytes % (Manual) Monocytes % (Manual) Eosinophils % (Manual) Basophils % (Manual) Seg Neutrophils # 8.1 H Seg Neutrophils # Man Lymphocytes # (Manual) Monocytes # (Manual) Eosinophils # (Manual) Basophils # (Manual) Heparin Anti-Xa Level ABG pH POC ABG pO2 ABG pO2 ABG HCO3 ABG O2 Saturation ABG Base Excess ABG Hemoglobin ABG Oxyhemoglobin Oxyhemoglobin Sodium Potassium Chloride Carbon Dioxide BUN 23 H Creatinine Glucose 123 H POC Glucose 112 H Lactic Acid Calcium Phosphorus Magnesium AST ALT Lactate Dehydrogenase CK-MB (CK-2) C-Reactive Protein NT-Pro-B Natriuret Pep Total Protein Albumin 3.7 L Urine WBC (Auto) 11/28/19 11/29/19 11/29/19 17:26 03:55 17:04 WBC RBC Hgb Hct MCHC RDW Lymph % (Auto) Thomas % (Auto) Thomas # Eos # Seg Neutrophils % Seg Neuts % (Manual) Lymphocytes % (Manual) Monocytes % (Manual) Eosinophils % (Manual) Basophils % (Manual) Seg Neutrophils # Seg Neutrophils # Man Lymphocytes # (Manual) Monocytes # (Manual) Eosinophils # (Manual) Basophils # (Manual) Heparin Anti-Xa Level ABG pH POC ABG pO2 ABG pO2 65.7 L ABG HCO3 28.3 H ABG O2 Saturation 93.9 L ABG Base Excess 3.6 H ABG Hemoglobin 13.3 L ABG Oxyhemoglobin Oxyhemoglobin 91.5 L Sodium Potassium Chloride Carbon Dioxide BUN Creatinine Glucose POC Glucose 123 H 119 H Lactic Acid Calcium Phosphorus Magnesium AST ALT Lactate Dehydrogenase CK-MB (CK-2) C-Reactive Protein NT-Pro-B Natriuret Pep Total Protein Albumin Urine WBC (Auto) 11/30/19 11/30/19 11/30/19 04:17 04:17 04:56 WBC 13.4 H RBC Hgb Hct MCHC RDW 15.6 H Lymph % (Auto) Thomas % (Auto) Thomas # Eos # Seg Neutrophils % Seg Neuts % (Manual) Lymphocytes % (Manual) Monocytes % (Manual) Eosinophils % (Manual) Basophils % (Manual) Seg Neutrophils # Seg Neutrophils # Man Lymphocytes # (Manual) Monocytes # (Manual) Eosinophils # (Manual) Basophils # (Manual) Heparin Anti-Xa Level ABG pH POC ABG pO2 ABG pO2 56.3 L ABG HCO3 29.3 H ABG O2 Saturation 91.5 L ABG Base Excess 4.7 H ABG Hemoglobin 12.1 L ABG Oxyhemoglobin Oxyhemoglobin 89.2 L Sodium 147 H Potassium Chloride Carbon Dioxide BUN 30 H Creatinine Glucose 124 H POC Glucose Lactic Acid Calcium Phosphorus Magnesium AST ALT Lactate Dehydrogenase CK-MB (CK-2) C-Reactive Protein NT-Pro-B Natriuret Pep Total Protein Albumin 3.8 L Urine WBC (Auto) 11/30/19 11/30/19 11/30/19 05:51 11:54 18:17 WBC RBC Hgb Hct MCHC RDW Lymph % (Auto) Thomas % (Auto) Thomas # Eos # Seg Neutrophils % Seg Neuts % (Manual) Lymphocytes % (Manual) Monocytes % (Manual) Eosinophils % (Manual) Basophils % (Manual) Seg Neutrophils # Seg Neutrophils # Man Lymphocytes # (Manual) Monocytes # (Manual) Eosinophils # (Manual) Basophils # (Manual) Heparin Anti-Xa Level ABG pH POC ABG pO2 ABG pO2 ABG HCO3 ABG O2 Saturation ABG Base Excess ABG Hemoglobin ABG Oxyhemoglobin Oxyhemoglobin Sodium Potassium Chloride Carbon Dioxide BUN Creatinine Glucose POC Glucose 127 H 115 H 143 H Lactic Acid Calcium Phosphorus Magnesium AST ALT Lactate Dehydrogenase CK-MB (CK-2) C-Reactive Protein NT-Pro-B Natriuret Pep Total Protein Albumin Urine WBC (Auto) 12/01/19 12/01/19 12/01/19 01:18 05:22 12:16 WBC RBC Hgb Hct MCHC RDW Lymph % (Auto) Thomas % (Auto) Thomas # Eos # Seg Neutrophils % Seg Neuts % (Manual) Lymphocytes % (Manual) Monocytes % (Manual) Eosinophils % (Manual) Basophils % (Manual) Seg Neutrophils # Seg Neutrophils # Man Lymphocytes # (Manual) Monocytes # (Manual) Eosinophils # (Manual) Basophils # (Manual) Heparin Anti-Xa Level ABG pH POC ABG pO2 ABG pO2 ABG HCO3 ABG O2 Saturation ABG Base Excess ABG Hemoglobin ABG Oxyhemoglobin Oxyhemoglobin Sodium Potassium 3.5 L Chloride 107.8 H Carbon Dioxide BUN 37 H Creatinine Glucose 157 H POC Glucose 118 H 148 H Lactic Acid Calcium 8.2 L D Phosphorus Magnesium AST 48 H ALT 60 H Lactate Dehydrogenase 194 H CK-MB (CK-2) C-Reactive Protein 8.50 H NT-Pro-B Natriuret Pep Total Protein 5.5 L Albumin 2.8 L Urine WBC (Auto) 12/01/19 12/02/19 12/02/19 18:04 00:05 05:16 WBC 11.4 H RBC Hgb Hct MCHC RDW 15.9 H Lymph % (Auto) Thomas % (Auto) 9.9 H Thomas # 1.1 H Eos # Seg Neutrophils % 70.3 H Seg Neuts % (Manual) Lymphocytes % (Manual) Monocytes % (Manual) Eosinophils % (Manual) Basophils % (Manual) Seg Neutrophils # 8.0 H Seg Neutrophils # Man Lymphocytes # (Manual) Monocytes # (Manual) Eosinophils # (Manual) Basophils # (Manual) Heparin Anti-Xa Level ABG pH POC ABG pO2 ABG pO2 ABG HCO3 ABG O2 Saturation ABG Base Excess ABG Hemoglobin ABG Oxyhemoglobin Oxyhemoglobin Sodium Potassium Chloride Carbon Dioxide BUN Creatinine Glucose POC Glucose 143 H 107 H Lactic Acid Calcium Phosphorus Magnesium AST ALT Lactate Dehydrogenase CK-MB (CK-2) C-Reactive Protein NT-Pro-B Natriuret Pep Total Protein Albumin Urine WBC (Auto) 12/02/19 12/02/19 12/02/19 05:16 06:03 11:52 WBC RBC Hgb Hct MCHC RDW Lymph % (Auto) Thomas % (Auto) Thomas # Eos # Seg Neutrophils % Seg Neuts % (Manual) Lymphocytes % (Manual) Monocytes % (Manual) Eosinophils % (Manual) Basophils % (Manual) Seg Neutrophils # Seg Neutrophils # Man Lymphocytes # (Manual) Monocytes # (Manual) Eosinophils # (Manual) Basophils # (Manual) Heparin Anti-Xa Level ABG pH POC ABG pO2 ABG pO2 ABG HCO3 ABG O2 Saturation ABG Base Excess ABG Hemoglobin ABG Oxyhemoglobin Oxyhemoglobin Sodium 146 H Potassium Chloride Carbon Dioxide BUN 28 H Creatinine Glucose 123 H POC Glucose 110 H 152 H Lactic Acid Calcium Phosphorus Magnesium AST ALT Lactate Dehydrogenase CK-MB (CK-2) C-Reactive Protein NT-Pro-B Natriuret Pep Total Protein Albumin Urine WBC (Auto) 12/02/19 12/02/19 12/02/19 12:58 17:58 23:36 WBC RBC Hgb Hct MCHC RDW Lymph % (Auto) Thomas % (Auto) Thomas # Eos # Seg Neutrophils % Seg Neuts % (Manual) Lymphocytes % (Manual) Monocytes % (Manual) Eosinophils % (Manual) Basophils % (Manual) Seg Neutrophils # Seg Neutrophils # Man Lymphocytes # (Manual) Monocytes # (Manual) Eosinophils # (Manual) Basophils # (Manual) Heparin Anti-Xa Level ABG pH POC ABG pO2 78.1 L ABG pO2 ABG HCO3 ABG O2 Saturation ABG Base Excess ABG Hemoglobin ABG Oxyhemoglobin Oxyhemoglobin Sodium Potassium Chloride Carbon Dioxide BUN Creatinine Glucose POC Glucose 120 H 123 H Lactic Acid Calcium Phosphorus Magnesium AST ALT Lactate Dehydrogenase CK-MB (CK-2) C-Reactive Protein NT-Pro-B Natriuret Pep Total Protein Albumin Urine WBC (Auto) 12/03/19 12/03/19 12/03/19 06:03 06:14 11:46 WBC RBC Hgb Hct MCHC RDW Lymph % (Auto) Thomas % (Auto) Thomas # Eos # Seg Neutrophils % Seg Neuts % (Manual) Lymphocytes % (Manual) Monocytes % (Manual) Eosinophils % (Manual) Basophils % (Manual) Seg Neutrophils # Seg Neutrophils # Man Lymphocytes # (Manual) Monocytes # (Manual) Eosinophils # (Manual) Basophils # (Manual) Heparin Anti-Xa Level ABG pH POC ABG pO2 ABG pO2 ABG HCO3 ABG O2 Saturation ABG Base Excess ABG Hemoglobin ABG Oxyhemoglobin Oxyhemoglobin Sodium Potassium Chloride Carbon Dioxide BUN Creatinine Glucose POC Glucose 142 H 130 H Lactic Acid Calcium Phosphorus Magnesium AST ALT Lactate Dehydrogenase CK-MB (CK-2) C-Reactive Protein NT-Pro-B Natriuret Pep Total Protein Albumin Urine WBC (Auto) 8.0 H 12/03/19 12/03/19 12/04/19 15:50 17:39 00:04 WBC RBC Hgb Hct MCHC RDW Lymph % (Auto) Thomas % (Auto) Thomas # Eos # Seg Neutrophils % Seg Neuts % (Manual) Lymphocytes % (Manual) Monocytes % (Manual) Eosinophils % (Manual) Basophils % (Manual) Seg Neutrophils # Seg Neutrophils # Man Lymphocytes # (Manual) Monocytes # (Manual) Eosinophils # (Manual) Basophils # (Manual) Heparin Anti-Xa Level ABG pH POC ABG pO2 ABG pO2 ABG HCO3 ABG O2 Saturation ABG Base Excess ABG Hemoglobin ABG Oxyhemoglobin Oxyhemoglobin Sodium Potassium Chloride Carbon Dioxide BUN Creatinine Glucose POC Glucose 146 H 133 H Lactic Acid Calcium Phosphorus 2.40 L Magnesium AST ALT Lactate Dehydrogenase CK-MB (CK-2) C-Reactive Protein NT-Pro-B Natriuret Pep Total Protein Albumin Urine WBC (Auto) 0912/04/19 12/04/19 03:58 03:58 05:22 WBC 12.5 H RBC Hgb 11.2 L Hct 35.2 L MCHC RDW 16.0 H Lymph % (Auto) Thomas % (Auto) 9.6 H Thomas # 1.2 H Eos # 0.5 H Seg Neutrophils % Seg Neuts % (Manual) Lymphocytes % (Manual) Monocytes % (Manual) Eosinophils % (Manual) Basophils % (Manual) Seg Neutrophils # 8.6 H Seg Neutrophils # Man Lymphocytes # (Manual) Monocytes # (Manual) Eosinophils # (Manual) Basophils # (Manual) Heparin Anti-Xa Level ABG pH POC ABG pO2 ABG pO2 ABG HCO3 ABG O2 Saturation ABG Base Excess ABG Hemoglobin ABG Oxyhemoglobin Oxyhemoglobin Sodium 146 H Potassium Chloride 108.6 H Carbon Dioxide BUN 30 H Creatinine 0.7 L Glucose 121 H POC Glucose 132 H Lactic Acid Calcium Phosphorus Magnesium AST ALT Lactate Dehydrogenase CK-MB (CK-2) C-Reactive Protein NT-Pro-B Natriuret Pep Total Protein Albumin Urine WBC (Auto) 12/04/19 12/04/19 12/05/19 13:26 18:43 00:19 WBC RBC Hgb Hct MCHC RDW Lymph % (Auto) Thomas % (Auto) Thomas # Eos # Seg Neutrophils % Seg Neuts % (Manual) Lymphocytes % (Manual) Monocytes % (Manual) Eosinophils % (Manual) Basophils % (Manual) Seg Neutrophils # Seg Neutrophils # Man Lymphocytes # (Manual) Monocytes # (Manual) Eosinophils # (Manual) Basophils # (Manual) Heparin Anti-Xa Level ABG pH POC ABG pO2 ABG pO2 ABG HCO3 ABG O2 Saturation ABG Base Excess ABG Hemoglobin ABG Oxyhemoglobin Oxyhemoglobin Sodium Potassium Chloride Carbon Dioxide BUN Creatinine Glucose POC Glucose 185 H 156 H 150 H Lactic Acid Calcium Phosphorus Magnesium AST ALT Lactate Dehydrogenase CK-MB (CK-2) C-Reactive Protein NT-Pro-B Natriuret Pep Total Protein Albumin Urine WBC (Auto) 12/05/19 12/05/19 12/05/19 03:37 03:37 05:14 WBC 16.3 H RBC Hgb 11.4 L Hct MCHC RDW 15.6 H Lymph % (Auto) 9.9 L Thomas % (Auto) 9.7 H Thomas # 1.6 H Eos # Seg Neutrophils % 78.0 H Seg Neuts % (Manual) Lymphocytes % (Manual) Monocytes % (Manual) Eosinophils % (Manual) Basophils % (Manual) Seg Neutrophils # 12.7 H Seg Neutrophils # Man Lymphocytes # (Manual) Monocytes # (Manual) Eosinophils # (Manual) Basophils # (Manual) Heparin Anti-Xa Level ABG pH POC ABG pO2 ABG pO2 ABG HCO3 ABG O2 Saturation ABG Base Excess ABG Hemoglobin ABG Oxyhemoglobin Oxyhemoglobin Sodium 146 H Potassium Chloride 107.2 H Carbon Dioxide BUN 27 H Creatinine 0.7 L Glucose 171 H POC Glucose 168 H Lactic Acid Calcium Phosphorus Magnesium AST ALT Lactate Dehydrogenase CK-MB (CK-2) C-Reactive Protein NT-Pro-B Natriuret Pep Total Protein Albumin Urine WBC (Auto) 12/05/19 12/05/19 12/05/19 12:31 18:10 23:58 WBC RBC Hgb Hct MCHC RDW Lymph % (Auto) Thomas % (Auto) Thomas # Eos # Seg Neutrophils % Seg Neuts % (Manual) Lymphocytes % (Manual) Monocytes % (Manual) Eosinophils % (Manual) Basophils % (Manual) Seg Neutrophils # Seg Neutrophils # Man Lymphocytes # (Manual) Monocytes # (Manual) Eosinophils # (Manual) Basophils # (Manual) Heparin Anti-Xa Level ABG pH POC ABG pO2 ABG pO2 ABG HCO3 ABG O2 Saturation ABG Base Excess ABG Hemoglobin ABG Oxyhemoglobin Oxyhemoglobin Sodium Potassium Chloride Carbon Dioxide BUN Creatinine Glucose POC Glucose 159 H 198 H 115 H Lactic Acid Calcium Phosphorus Magnesium AST ALT Lactate Dehydrogenase CK-MB (CK-2) C-Reactive Protein NT-Pro-B Natriuret Pep Total Protein Albumin Urine WBC (Auto) 12/06/19 12/06/19 12/06/19 05:24 05:24 05:25 WBC 14.9 H RBC Hgb 10.8 L Hct 34.0 L MCHC RDW 15.6 H Lymph % (Auto) 10.7 L Thomas % (Auto) 8.3 H Thomas # 1.2 H Eos # Seg Neutrophils % 78.7 H Seg Neuts % (Manual) Lymphocytes % (Manual) Monocytes % (Manual) Eosinophils % (Manual) Basophils % (Manual) Seg Neutrophils # 11.7 H Seg Neutrophils # Man Lymphocytes # (Manual) Monocytes # (Manual) Eosinophils # (Manual) Basophils # (Manual) Heparin Anti-Xa Level ABG pH POC ABG pO2 ABG pO2 ABG HCO3 ABG O2 Saturation ABG Base Excess ABG Hemoglobin ABG Oxyhemoglobin Oxyhemoglobin Sodium 148 H Potassium 5.1 H Chloride 107.6 H Carbon Dioxide BUN 27 H Creatinine 0.7 L Glucose 155 H POC Glucose 157 H Lactic Acid Calcium Phosphorus Magnesium AST ALT Lactate Dehydrogenase CK-MB (CK-2) C-Reactive Protein NT-Pro-B Natriuret Pep Total Protein Albumin Urine WBC (Auto) 12/07/19 12/07/19 12/07/19 00:13 05:34 11:33 WBC RBC Hgb Hct MCHC RDW Lymph % (Auto) Thomas % (Auto) Thomas # Eos # Seg Neutrophils % Seg Neuts % (Manual) Lymphocytes % (Manual) Monocytes % (Manual) Eosinophils % (Manual) Basophils % (Manual) Seg Neutrophils # Seg Neutrophils # Man Lymphocytes # (Manual) Monocytes # (Manual) Eosinophils # (Manual) Basophils # (Manual) Heparin Anti-Xa Level ABG pH POC ABG pO2 ABG pO2 ABG HCO3 ABG O2 Saturation ABG Base Excess ABG Hemoglobin ABG Oxyhemoglobin Oxyhemoglobin Sodium Potassium Chloride Carbon Dioxide BUN Creatinine Glucose POC Glucose 142 H 111 H 169 H Lactic Acid Calcium Phosphorus Magnesium AST ALT Lactate Dehydrogenase CK-MB (CK-2) C-Reactive Protein NT-Pro-B Natriuret Pep Total Protein Albumin Urine WBC (Auto) 12/07/19 12/07/19 12/07/19 12:41 13:25 18:19 WBC 12.4 H RBC 3.53 L Hgb 10.2 L Hct 32.1 L MCHC RDW 15.3 H Lymph % (Auto) 10.6 L Thomas % (Auto) 7.8 H Thomas # 1.0 H Eos # Seg Neutrophils % 77.6 H Seg Neuts % (Manual) Lymphocytes % (Manual) Monocytes % (Manual) Eosinophils % (Manual) Basophils % (Manual) Seg Neutrophils # 9.6 H Seg Neutrophils # Man Lymphocytes # (Manual) Monocytes # (Manual) Eosinophils # (Manual) Basophils # (Manual) Heparin Anti-Xa Level ABG pH POC ABG pO2 ABG pO2 ABG HCO3 ABG O2 Saturation ABG Base Excess ABG Hemoglobin ABG Oxyhemoglobin Oxyhemoglobin Sodium 149 H Potassium Chloride 108.4 H Carbon Dioxide BUN 26 H Creatinine 0.6 L Glucose 149 H POC Glucose 164 H Lactic Acid Calcium Phosphorus Magnesium 2.60 H AST 121 H ALT 145 H Lactate Dehydrogenase CK-MB (CK-2) C-Reactive Protein NT-Pro-B Natriuret Pep Total Protein Albumin 2.6 L Urine WBC (Auto) 12/07/19 12/08/19 12/08/19 22:25 00:02 03:55 WBC 13.3 H RBC 3.40 L Hgb 9.7 L Hct 30.8 L MCHC 31 L RDW 15.5 H Lymph % (Auto) Thomas % (Auto) 8.1 H Thomas # 1.1 H Eos # Seg Neutrophils % 73.0 H Seg Neuts % (Manual) Lymphocytes % (Manual) Monocytes % (Manual) Eosinophils % (Manual) Basophils % (Manual) Seg Neutrophils # 9.7 H Seg Neutrophils # Man Lymphocytes # (Manual) Monocytes # (Manual) Eosinophils # (Manual) Basophils # (Manual) Heparin Anti-Xa Level 0.12 L ABG pH POC ABG pO2 ABG pO2 ABG HCO3 ABG O2 Saturation ABG Base Excess ABG Hemoglobin ABG Oxyhemoglobin Oxyhemoglobin Sodium Potassium Chloride Carbon Dioxide BUN Creatinine Glucose POC Glucose 151 H Lactic Acid Calcium Phosphorus Magnesium AST ALT Lactate Dehydrogenase CK-MB (CK-2) C-Reactive Protein NT-Pro-B Natriuret Pep Total Protein Albumin Urine WBC (Auto) 12/08/19 12/08/19 12/08/19 03:55 05:21 06:01 WBC RBC Hgb Hct MCHC RDW Lymph % (Auto) Thomas % (Auto) Thomas # Eos # Seg Neutrophils % Seg Neuts % (Manual) Lymphocytes % (Manual) Monocytes % (Manual) Eosinophils % (Manual) Basophils % (Manual) Seg Neutrophils # Seg Neutrophils # Man Lymphocytes # (Manual) Monocytes # (Manual) Eosinophils # (Manual) Basophils # (Manual) Heparin Anti-Xa Level 0.20 L ABG pH POC ABG pO2 ABG pO2 ABG HCO3 ABG O2 Saturation ABG Base Excess ABG Hemoglobin ABG Oxyhemoglobin Oxyhemoglobin Sodium 149 H Potassium Chloride 108.0 H Carbon Dioxide BUN 28 H Creatinine 0.6 L Glucose 144 H POC Glucose 143 H Lactic Acid Calcium Phosphorus Magnesium AST 98 H ALT 145 H Lactate Dehydrogenase CK-MB (CK-2) C-Reactive Protein NT-Pro-B Natriuret Pep Total Protein 6.0 L Albumin 2.4 L Urine WBC (Auto) 12/08/19 12/08/19 12/08/19 12:08 18:11 23:53 WBC RBC Hgb Hct MCHC RDW Lymph % (Auto) Thomas % (Auto) Thomas # Eos # Seg Neutrophils % Seg Neuts % (Manual) Lymphocytes % (Manual) Monocytes % (Manual) Eosinophils % (Manual) Basophils % (Manual) Seg Neutrophils # Seg Neutrophils # Man Lymphocytes # (Manual) Monocytes # (Manual) Eosinophils # (Manual) Basophils # (Manual) Heparin Anti-Xa Level ABG pH POC ABG pO2 ABG pO2 ABG HCO3 ABG O2 Saturation ABG Base Excess ABG Hemoglobin ABG Oxyhemoglobin Oxyhemoglobin Sodium Potassium Chloride Carbon Dioxide BUN Creatinine Glucose POC Glucose 172 H 122 H 162 H Lactic Acid Calcium Phosphorus Magnesium AST ALT Lactate Dehydrogenase CK-MB (CK-2) C-Reactive Protein NT-Pro-B Natriuret Pep Total Protein Albumin Urine WBC (Auto) 12/09/19 12/09/19 12/09/19 04:03 04:03 05:53 WBC RBC Hgb 9.1 L Hct 28.9 L MCHC RDW Lymph % (Auto) Thomas % (Auto) Thomas # Eos # Seg Neutrophils % Seg Neuts % (Manual) Lymphocytes % (Manual) Monocytes % (Manual) Eosinophils % (Manual) Basophils % (Manual) Seg Neutrophils # Seg Neutrophils # Man Lymphocytes # (Manual) Monocytes # (Manual) Eosinophils # (Manual) Basophils # (Manual) Heparin Anti-Xa Level 0.15 L ABG pH POC ABG pO2 ABG pO2 ABG HCO3 ABG O2 Saturation ABG Base Excess ABG Hemoglobin ABG Oxyhemoglobin Oxyhemoglobin Sodium Potassium Chloride Carbon Dioxide BUN Creatinine Glucose POC Glucose 124 H Lactic Acid Calcium Phosphorus Magnesium AST ALT Lactate Dehydrogenase CK-MB (CK-2) C-Reactive Protein NT-Pro-B Natriuret Pep Total Protein Albumin Urine WBC (Auto) 12/09/19 12/09/19 12/10/19 09:43 12:41 00:13 WBC RBC Hgb Hct MCHC RDW Lymph % (Auto) Thomas % (Auto) Thomas # Eos # Seg Neutrophils % Seg Neuts % (Manual) Lymphocytes % (Manual) Monocytes % (Manual) Eosinophils % (Manual) Basophils % (Manual) Seg Neutrophils # Seg Neutrophils # Man Lymphocytes # (Manual) Monocytes # (Manual) Eosinophils # (Manual) Basophils # (Manual) Heparin Anti-Xa Level ABG pH POC ABG pO2 ABG pO2 ABG HCO3 ABG O2 Saturation ABG Base Excess ABG Hemoglobin ABG Oxyhemoglobin Oxyhemoglobin Sodium Potassium Chloride Carbon Dioxide BUN 25 H Creatinine 0.6 L Glucose 131 H POC Glucose 109 H 120 H Lactic Acid Calcium Phosphorus Magnesium AST ALT Lactate Dehydrogenase CK-MB (CK-2) C-Reactive Protein NT-Pro-B Natriuret Pep Total Protein Albumin Urine WBC (Auto) 12/10/19 12/10/19 12/10/19 04:14 04:14 12:00 WBC 13.3 H RBC 3.34 L Hgb 9.6 L Hct 30.4 L MCHC RDW 15.4 H Lymph % (Auto) Thomas % (Auto) Thomas # Eos # Seg Neutrophils % Seg Neuts % (Manual) 75.0 H Lymphocytes % (Manual) 13.0 L Monocytes % (Manual) 8.0 H Eosinophils % (Manual) Basophils % (Manual) 2.0 H Seg Neutrophils # Seg Neutrophils # Man 10.0 H Lymphocytes # (Manual) Monocytes # (Manual) 1.1 H Eosinophils # (Manual) Basophils # (Manual) 0.3 H Heparin Anti-Xa Level ABG pH POC ABG pO2 ABG pO2 ABG HCO3 ABG O2 Saturation ABG Base Excess ABG Hemoglobin ABG Oxyhemoglobin Oxyhemoglobin Sodium 147 H Potassium Chloride 108.3 H Carbon Dioxide BUN 21 H Creatinine 0.6 L Glucose 104 H POC Glucose 133 H Lactic Acid Calcium Phosphorus Magnesium AST ALT Lactate Dehydrogenase CK-MB (CK-2) C-Reactive Protein NT-Pro-B Natriuret Pep Total Protein Albumin Urine WBC (Auto) 12/10/19 12/10/19 12/11/19 18:44 21:20 00:08 WBC 14.9 H RBC 3.36 L Hgb 9.6 L Hct 30.5 L MCHC RDW 15.4 H Lymph % (Auto) Thomas % (Auto) Thomas # Eos # Seg Neutrophils % Seg Neuts % (Manual) Lymphocytes % (Manual) Monocytes % (Manual) Eosinophils % (Manual) Basophils % (Manual) Seg Neutrophils # Seg Neutrophils # Man Lymphocytes # (Manual) Monocytes # (Manual) Eosinophils # (Manual) Basophils # (Manual) Heparin Anti-Xa Level ABG pH POC ABG pO2 ABG pO2 ABG HCO3 ABG O2 Saturation ABG Base Excess ABG Hemoglobin ABG Oxyhemoglobin Oxyhemoglobin Sodium Potassium Chloride Carbon Dioxide BUN Creatinine Glucose POC Glucose 119 H 134 H Lactic Acid Calcium Phosphorus Magnesium AST ALT Lactate Dehydrogenase CK-MB (CK-2) C-Reactive Protein NT-Pro-B Natriuret Pep Total Protein Albumin Urine WBC (Auto) 12/11/19 12/11/19 12/11/19 03:54 07:28 08:36 WBC 11.9 H RBC 3.25 L Hgb 9.6 L Hct 29.2 L MCHC RDW 15.7 H Lymph % (Auto) Thomas % (Auto) Thomas # Eos # Seg Neutrophils % Seg Neuts % (Manual) Lymphocytes % (Manual) Monocytes % (Manual) Eosinophils % (Manual) Basophils % (Manual) Seg Neutrophils # Seg Neutrophils # Man Lymphocytes # (Manual) Monocytes # (Manual) Eosinophils # (Manual) Basophils # (Manual) Heparin Anti-Xa Level 0.10 L 0.16 L ABG pH POC ABG pO2 ABG pO2 ABG HCO3 ABG O2 Saturation ABG Base Excess ABG Hemoglobin ABG Oxyhemoglobin Oxyhemoglobin Sodium Potassium Chloride Carbon Dioxide BUN Creatinine Glucose POC Glucose Lactic Acid Calcium Phosphorus Magnesium AST ALT Lactate Dehydrogenase CK-MB (CK-2) C-Reactive Protein NT-Pro-B Natriuret Pep Total Protein Albumin Urine WBC (Auto) 12/11/19 12/11/19 12/11/19 08:36 11:45 17:15 WBC RBC Hgb Hct MCHC RDW Lymph % (Auto) Thomas % (Auto) Thomas # Eos # Seg Neutrophils % Seg Neuts % (Manual) Lymphocytes % (Manual) Monocytes % (Manual) Eosinophils % (Manual) Basophils % (Manual) Seg Neutrophils # Seg Neutrophils # Man Lymphocytes # (Manual) Monocytes # (Manual) Eosinophils # (Manual) Basophils # (Manual) Heparin Anti-Xa Level ABG pH POC ABG pO2 ABG pO2 ABG HCO3 ABG O2 Saturation ABG Base Excess ABG Hemoglobin ABG Oxyhemoglobin Oxyhemoglobin Sodium Potassium Chloride Carbon Dioxide BUN Creatinine 0.5 L Glucose 128 H POC Glucose 136 H 109 H Lactic Acid Calcium Phosphorus Magnesium AST ALT Lactate Dehydrogenase CK-MB (CK-2) C-Reactive Protein NT-Pro-B Natriuret Pep Total Protein Albumin Urine WBC (Auto) 12/12/19 12/12/19 12/12/19 00:03 05:53 05:53 WBC RBC Hgb 8.8 L Hct 27.6 L MCHC RDW Lymph % (Auto) Thomas % (Auto) Thomas # Eos # Seg Neutrophils % Seg Neuts % (Manual) Lymphocytes % (Manual) Monocytes % (Manual) Eosinophils % (Manual) Basophils % (Manual) Seg Neutrophils # Seg Neutrophils # Man Lymphocytes # (Manual) Monocytes # (Manual) Eosinophils # (Manual) Basophils # (Manual) Heparin Anti-Xa Level 0.22 L ABG pH POC ABG pO2 ABG pO2 ABG HCO3 ABG O2 Saturation ABG Base Excess ABG Hemoglobin ABG Oxyhemoglobin Oxyhemoglobin Sodium Potassium Chloride Carbon Dioxide BUN Creatinine Glucose POC Glucose 116 H Lactic Acid Calcium Phosphorus Magnesium AST ALT Lactate Dehydrogenase CK-MB (CK-2) C-Reactive Protein NT-Pro-B Natriuret Pep Total Protein Albumin Urine WBC (Auto) 12/12/19 12/12/19 12/12/19 09:38 12:18 17:44 WBC RBC Hgb Hct MCHC RDW Lymph % (Auto) Thomas % (Auto) Thomas # Eos # Seg Neutrophils % Seg Neuts % (Manual) Lymphocytes % (Manual) Monocytes % (Manual) Eosinophils % (Manual) Basophils % (Manual) Seg Neutrophils # Seg Neutrophils # Man Lymphocytes # (Manual) Monocytes # (Manual) Eosinophils # (Manual) Basophils # (Manual) Heparin Anti-Xa Level ABG pH POC ABG pO2 ABG pO2 ABG HCO3 ABG O2 Saturation ABG Base Excess ABG Hemoglobin ABG Oxyhemoglobin Oxyhemoglobin Sodium Potassium Chloride Carbon Dioxide BUN Creatinine Glucose POC Glucose 115 H 146 H 146 H Lactic Acid Calcium Phosphorus Magnesium AST ALT Lactate Dehydrogenase CK-MB (CK-2) C-Reactive Protein NT-Pro-B Natriuret Pep Total Protein Albumin Urine WBC (Auto) 12/12/19 12/13/19 12/13/19 23:33 05:32 05:32 WBC 13.1 H RBC 3.27 L Hgb 9.5 L Hct 29.3 L MCHC RDW 15.6 H Lymph % (Auto) Thomas % (Auto) Thomas # Eos # Seg Neutrophils % Seg Neuts % (Manual) 74.0 H Lymphocytes % (Manual) 8.0 L Monocytes % (Manual) 9.0 H Eosinophils % (Manual) 5.0 H Basophils % (Manual) Seg Neutrophils # Seg Neutrophils # Man 9.7 H Lymphocytes # (Manual) 1.0 L Monocytes # (Manual) 1.2 H Eosinophils # (Manual) 0.7 H Basophils # (Manual) Heparin Anti-Xa Level 0.20 L ABG pH POC ABG pO2 ABG pO2 ABG HCO3 ABG O2 Saturation ABG Base Excess ABG Hemoglobin ABG Oxyhemoglobin Oxyhemoglobin Sodium Potassium Chloride Carbon Dioxide BUN Creatinine Glucose POC Glucose 126 H Lactic Acid Calcium Phosphorus Magnesium AST ALT Lactate Dehydrogenase CK-MB (CK-2) C-Reactive Protein NT-Pro-B Natriuret Pep Total Protein Albumin Urine WBC (Auto) 12/13/19 12/13/19 05:32 05:46 WBC RBC Hgb Hct MCHC RDW Lymph % (Auto) Thomas % (Auto) Thomas # Eos # Seg Neutrophils % Seg Neuts % (Manual) Lymphocytes % (Manual) Monocytes % (Manual) Eosinophils % (Manual) Basophils % (Manual) Seg Neutrophils # Seg Neutrophils # Man Lymphocytes # (Manual) Monocytes # (Manual) Eosinophils # (Manual) Basophils # (Manual) Heparin Anti-Xa Level ABG pH POC ABG pO2 ABG pO2 ABG HCO3 ABG O2 Saturation ABG Base Excess ABG Hemoglobin ABG Oxyhemoglobin Oxyhemoglobin Sodium Potassium Chloride Carbon Dioxide 31 H BUN Creatinine 0.6 L Glucose 114 H POC Glucose 118 H Lactic Acid Calcium Phosphorus Magnesium AST ALT Lactate Dehydrogenase CK-MB (CK-2) C-Reactive Protein NT-Pro-B Natriuret Pep Total Protein Albumin Urine WBC (Auto) Allied health notes reviewed: nursing
--- NOTE | 2019-12-13 11:29 | Progress Note ---
Assessment and Plan - Patient Problems (1) Paroxysmal atrial fibrillation Current Visit: Yes Status: Acute Plan to address problem: We will continue conservative cardiac management and supportive measures as previously outlined. Subjective Date of service: 12/13/19 Principal diagnosis: Ac hypoxemic resp failure; Pneumonia; PUI COVID-19; CHF; COPD; HTN Interval history: Patient is sedated, on the vent. He remains in a stable sinus rhythm at 80, blood pressure 112 systolic. Objective Vital Signs Temp Pulse Pulse Pulse Resp Resp BP 12/13/19 09:30 76 7 L 107/71 12/13/19 09:00 81 12 107/71 12/13/19 08:51 90 15 107/64 12/13/19 08:30 74 9 L 107/64 12/13/19 08:27 76 84 17 107/64 12/13/19 08:00 98.7 F 74 74 10 L 107/64 12/13/19 07:30 74 13 110/68 12/13/19 07:00 75 11 L 110/68 12/13/19 06:30 77 10 L 112/67 12/13/19 06:00 79 11 L 112/67 12/13/19 05:44 82 113/67 12/13/19 05:30 85 12 128/71 12/13/19 05:00 96 H 15 128/71 12/13/19 04:30 91 H 92 H 15 17 128/71 12/13/19 04:00 82 82 12 128/71 12/13/19 03:41 99.0 F 12/13/19 03:30 84 14 111/74 12/13/19 03:00 79 14 111/74 12/13/19 02:30 80 13 108/76 12/13/19 02:00 79 15 108/76 12/13/19 01:30 78 13 114/71 12/13/19 01:00 78 12 118/71 12/13/19 00:30 78 14 125/73 12/13/19 00:02 76 114/71 12/13/19 00:00 99.1 F 79 79 15 114/71 12/12/19 23:30 78 13 125/73 12/12/19 23:16 77 15 125/73 12/12/19 23:00 76 14 125/73 12/12/19 22:30 77 16 123/80 12/12/19 22:00 86 12 123/80 12/12/19 21:30 83 15 131/89 12/12/19 21:00 85 13 131/89 12/12/19 20:30 85 18 147/95 12/12/19 20:16 86 81 12 147/95 12/12/19 20:00 85 88 16 147/95 12/12/19 19:55 99.6 F 12/12/19 19:30 81 15 145/97 12/12/19 19:00 85 17 137/90 12/12/19 18:30 90 18 137/90 12/12/19 18:00 83 17 137/90 12/12/19 17:30 86 18 145/96 12/12/19 17:00 86 21 145/96 12/12/19 16:30 81 17 132/90 12/12/19 16:20 90 12/12/19 16:00 99.0 F 82 82 19 132/90 12/12/19 15:30 78 10 L 133/82 12/12/19 15:15 81 133/92 12/12/19 15:00 84 14 133/82 12/12/19 14:30 89 14 148/82 12/12/19 14:00 94 H 16 148/82 12/12/19 13:56 96 H 134/90 12/12/19 13:32 97 H 15 12/12/19 13:30 99 H 18 116/60 12/12/19 13:00 101 H 20 116/60 12/12/19 12:30 106 H 24 116/60 12/12/19 12:20 100 H 134/90 12/12/19 12:00 98.4 F 65 95 H 13 117/81 12/12/19 11:30 77 17 117/81 Pulse Ox 12/13/19 09:30 97 12/13/19 09:00 92 12/13/19 08:51 96 12/13/19 08:30 94 12/13/19 08:27 94 12/13/19 08:00 93 12/13/19 07:30 97 12/13/19 07:00 94 12/13/19 06:30 95 12/13/19 06:00 88 12/13/19 05:44 12/13/19 05:30 96 12/13/19 05:00 93 12/13/19 04:30 93 12/13/19 04:00 90 12/13/19 03:41 12/13/19 03:30 95 12/13/19 03:00 93 12/13/19 02:30 96 12/13/19 02:00 92 12/13/19 01:30 96 12/13/19 01:00 96 12/13/19 00:30 96 12/13/19 00:02 97 12/13/19 00:00 95 12/12/19 23:30 96 12/12/19 23:16 94 12/12/19 23:00 92 12/12/19 22:30 92 12/12/19 22:00 92 12/12/19 21:30 94 12/12/19 21:00 91 12/12/19 20:30 93 12/12/19 20:16 93 12/12/19 20:00 93 12/12/19 19:55 12/12/19 19:30 93 12/12/19 19:00 95 12/12/19 18:30 92 12/12/19 18:00 92 12/12/19 17:30 97 12/12/19 17:00 96 12/12/19 16:30 94 12/12/19 16:20 12/12/19 16:00 93 12/12/19 15:30 93 12/12/19 15:15 92 12/12/19 15:00 89 12/12/19 14:30 91 12/12/19 14:00 89 12/12/19 13:56 12/12/19 13:32 12/12/19 13:30 88 12/12/19 13:00 89 12/12/19 12:30 90 12/12/19 12:20 90 12/12/19 12:00 96 12/12/19 11:30 97 - Physical Examination General: Other (intubated) HEENT: Positive: PERRL Neck: Positive: neck supple Cardiac: Positive: Reg Rate and Rhythm Lungs: Positive: Decreased Breath Sounds Neuro: Positive: Other (Intubated and sedated, on the vent) Abdomen: Positive: Soft Skin: Positive: Clear Extremities: Absent: edema - Labs and Meds CBC 12/13/19 Range/Units 05:32 WBC 13.1 H (4.5-11.0) K/mm3 RBC 3.27 L (3.65-5.03) M/mm3 Hgb 9.5 L (11.8-15.2) gm/dl Hct 29.3 L (35.5-45.6) % Plt Count 312 (140-440) K/mm3 Comprehensive Metabolic Panel 12/13/19 Range/Units 05:32 Sodium 141 (137-145) mmol/L Potassium 4.1 (3.6-5.0) mmol/L Chloride 101.0 (98-107) mmol/L Carbon Dioxide 31 H (22-30) mmol/L BUN 18 (9-20) mg/dL Creatinine 0.6 L (0.8-1.3) mg/dL Glucose 114 H (75-100) mg/dL Calcium 9.2 (8.4-10.2) mg/dL - Allied health notes Allied health notes reviewed: nursing
--- NOTE | 2019-12-13 15:20 | Progress Note ---
Assessment and Plan -Acute LLL PE -Acute RLE DVT -Persistent fevers; secondary to sepsis and acute PE/DVT -Severe sepsis; secondary to bilateral pneumonia, persistent fevers -Acute hypoxemic respiratory failure, on vent unable to wean -Bilateral pneumonia, community acquired, -Aspiration Pneumonia -Sustained SVT, on amiodarone -Acute on chronic systolic congestive heart failure -History of cerebrovascular accident. -Tobacco use disorder -Alcohol abuse with DT -Acute chronic obstructive pulmonary disease exacerbation. -Hypertension and hypertensive urgency at presentation. -History of arthritis. -Paroxysmal atrial fibrillation -Leukocytosis with possible sepsis. -Lactic acidosis. -Bleeding from ET tube -Oropharyngeal dysphagia -S/P Knee surgery -History of peptic Ulcer Surgery -DVT prophylaxis COVID-19 test; 11/24/2019; negative 11/26/2019; negative Plan Continue ventilatory support, Wean as tolerated and extubate., Pulmonary critical care following Completed ceftriaxone and azithromycin for total 5 days per ID ID now started cefepime and Vanco Continue anti-failure medications, cardiology following cont Steroids, Continue diuresis as needed Aspiration precautions Continue amiodarone and metoprolol for suppression of paroxysmal atrial fibrillation. Anticoagulation currently is with intravenous heparin - was brefly on hold for bleeding from ET tube DVT/GI prophy Heparin/Protonix Plan of care reviewed with the patient's nurse Closely monitor the patient and adjust management as needed The high probability of a clinically significant, sudden or life threatening deterioration of the [Respiratory, cardiovascular & neurological] system(s) required my full and direct attention, intervention and personal management. The aggregate critical care time was [33] minutes without overlap. Time includes spent on [x] Data Review and interpretation [x] Patient assessment and monitoring of vital signs [x] Documentation [x] Medication orders and management Brief History Patient is a 64-year-old male with known history of hypertension, COPD, history of coronary artery disease, CHF with ejection fraction of 20 to 25% in August 2018 presenting to the emergency room via EMS complaining of shortness of breath. Patient was found to be hypoxic and in respiratory distress. Patient was placed on CPAP in route to the hospital. Oxygen saturation was said to be 88%. Started on Solu-Medrol, Lasix and magnesium in ED, patient was also found to be lethargic with an oxygen saturation of about 91% on CPAP. He was subsequently intubated. Work-up in the emergency room including chest x-ray reveals bilateral pneumonia. He had an elevated white count of 14 and also had an elevated BNP. Patient to be admitted to the ICU and placed on empiric IV antibiotics for pneumonia. He will also be tested positive for COVID-19 and placed on isolation precautions. Rmains intubated on ventilatory support, sputum cultures positive for Pseudomonas, ID changed antibiotics to cefepime and Vanco. 11/25: Leukocytosis improving. Continue current management anticipate extubation possible today. 11/26. Still intubated. Failed SBT yesterday. Repeat COVID-19 test is negative. 11/27. CT head ordered for possible neuro status change is negative. More responsive as the day progressed as per RN. Chest xray today shows interval improvement. He is still on antibiotics - will complete regimen today. 11/28: Considering difficult extubation and severe cardiomyopathy, will obtain cardiology consult. Aspiration precautions, tube feeds held, continue antibiotics. 11/29: Still with intermittent fever but improving imaging, continue diuresis. 11/30; Extremely agitated when placed on PSV- SVT, hypertension. Patiet acknowledged that he drinks. IV Ativan given, CIWA protocol initiated. 12 lead ordered showed SVT, one dose of amiodarone ordered. continue to follow up cardiology recommendation 12/01: Patient remains on mechanical ventilation, getting SBT trial. Remains in SVT, started on amiodarone drip by cardiology. 12/02; patient is on mechanical ventilation and on spontaneous breathing trial. Cardiology started the patient on PO amiodarone. Patient is on cefepime. 12/03: patient is on mechanical ventilation. Cardiology started the patient on PO amiodarone for SVT. Patient is on cefepime, no fever overnight. 12/04: Patient is sedated and on mechanical ventilation. Patient had fever yesterday afternoon 102.3, ID changed his cefepime to meropenem. Heart rate is controlled, cardiology is following. Patient has paroxysmal atrial fibrillation and on amiodarone and metoprolol, subcu heparin for anticoagulation and will need oral anticoagulation once stable. 12/05: Sputum cultures positive for Pseudomonas, ID following 12/06; patient is febrile T-max 24 hours 102 F ,ID change antibiotics to cefepime and Vancomycin 12/07: resumed care. Na 149 today, start on 03/26 NS. cont current care 12/08: remains in a stable sinus rhythm and stable blood pressure, continue s upportive care. wean off vent as tolerated. persistent fever - ordered CTA chest 12/09: noted bloody discharges from ET tube last night. CTA and LE venous doppler positive for acute PE and DVT. resume heparin drip, consult vascular for possible EKOS/ IVC filter. monitor h/h. cont SBT trial, wean off vent as tolerated. called but no answer 12/10: cont heparin drip for acute PE and DVT, follow vascular recommendation. monitor h/h, wean off vent as tolerated 12/11: o/n had bleeding from ET tube, cont to monitor h/h. vascular recommending medical Mx. called ; Nicolle Araiza [phone]. 12/12: H&H remained stable, patient on heparin drip. Discussed with yesterday. Discussed with critical care attending. Patient not tolerating SBT trial. Continue to wean off from vent as tolerated, follow clinically. Tolerating tube feeding Subjective Date of service: 12/13/19 Principal diagnosis: Ac hypoxemic resp failure; Pneumonia; PUI COVID-19; CHF; COPD; HTN Interval history: Patient seen and examined Patient intubated on mechanical ventilation Discussed with RN at the bedside Intermittent bleeding from ET tube while suctioning H/H STABLE, patient remains on heparin drip Objective - Exam Narrative Exam: General appearance: Present: well-nourished, other (Intubated), opens eyes to names and follows minor command - EENT Eyes: Present: PERRL, EOM intact. Absent: scleral icterus ENT: clear oral mucosa, dentition normal - Neck Neck: Present: supple, normal ROM - Respiratory Respiratory effort: normal, mechanical ventilation Respiratory: bilateral: rales - Cardiovascular Rhythm: regular Heart Sounds: Present: S1 & S2, tachycardic. Absent: gallop, systolic murmur, diastolic murmur, rub - Extremities Extremities: no ischemia, pulses intact, pulses symmetrical, No edema, Full ROM Peripheral Pulses: within normal limits - Abdominal General gastrointestinal: Present: soft, non-tender, non-distended, normal bowel sounds. Absent: mass - Integumentary Integumentary: Present: clear, warm, dry. Absent: rash - Musculoskeletal Musculoskeletal: no joint swelling - Psychiatric Psychiatric: sedated Neurology: no focal deficits - Constitutional Vitals: Vital Signs - 12hr 12/13/19 12/13/19 12/13/19 03:30 03:41 04:00 Temperature 99.0 F Pulse Rate 84 82 Pulse Rate [ Anterior Bilateral Throughout] Pulse Rate [ 82 From Monitor] Respiratory 14 12 Rate Respiratory Rate [Anterior Bilateral Throughout] Blood Pressure 111/74 128/71 O2 Sat by Pulse 95 90 Oximetry 12/13/19 12/13/19 12/13/19 04:30 05:00 05:30 Temperature Pulse Rate 91 H 96 H 85 Pulse Rate [ 92 H Anterior Bilateral Throughout] Pulse Rate [ From Monitor] Respiratory 15 15 12 Rate Respiratory 17 Rate [Anterior Bilateral Throughout] Blood Pressure 128/71 128/71 128/71 O2 Sat by Pulse 93 93 96 Oximetry 12/13/19 12/13/19 12/13/19 05:44 06:00 06:30 Temperature Pulse Rate 82 79 77 Pulse Rate [ Anterior Bilateral Throughout] Pulse Rate [ From Monitor] Respiratory 11 L 10 L Rate Respiratory Rate [Anterior Bilateral Throughout] Blood Pressure 113/67 112/67 112/67 O2 Sat by Pulse 88 95 Oximetry 12/13/19 12/13/19 12/13/19 07:00 07:30 08:00 Temperature 98.7 F Pulse Rate 75 74 74 Pulse Rate [ Anterior Bilateral Throughout] Pulse Rate [ 74 From Monitor] Respiratory 11 L 13 10 L Rate Respiratory Rate [Anterior Bilateral Throughout] Blood Pressure 110/68 110/68 107/64 O2 Sat by Pulse 94 97 93 Oximetry 12/13/19 12/13/19 12/13/19 08:27 08:30 08:51 Temperature Pulse Rate 76 74 90 Pulse Rate [ 84 Anterior Bilateral Throughout] Pulse Rate [ From Monitor] Respiratory 9 L 15 Rate Respiratory 17 Rate [Anterior Bilateral Throughout] Blood Pressure 107/64 107/64 107/64 O2 Sat by Pulse 94 94 96 Oximetry 12/13/19 12/13/19 12/13/19 09:00 09:30 10:00 Temperature Pulse Rate 81 76 80 Pulse Rate [ Anterior Bilateral Throughout] Pulse Rate [ From Monitor] Respiratory 12 7 L 13 Rate Respiratory Rate [Anterior Bilateral Throughout] Blood Pressure 107/71 107/71 119/74 O2 Sat by Pulse 92 97 92 Oximetry 12/13/19 12/13/19 12/13/19 10:30 11:00 11:30 Temperature Pulse Rate 81 80 77 Pulse Rate [ Anterior Bilateral Throughout] Pulse Rate [ From Monitor] Respiratory 14 12 12 Rate Respiratory Rate [Anterior Bilateral Throughout] Blood Pressure 119/74 121/78 121/78 O2 Sat by Pulse 96 97 Oximetry 12/13/19 12/13/19 12/13/19 12:00 12:13 12:30 Temperature 98.7 F Pulse Rate 80 80 78 Pulse Rate [ Anterior Bilateral Throughout] Pulse Rate [ 81 From Monitor] Respiratory 14 13 10 L Rate Respiratory Rate [Anterior Bilateral Throughout] Blood Pressure 119/73 119/73 119/73 O2 Sat by Pulse 93 97 98 Oximetry 12/13/19 12/13/19 12/13/19 13:00 13:17 13:30 Temperature Pulse Rate 82 79 80 Pulse Rate [ Anterior Bilateral Throughout] Pulse Rate [ From Monitor] Respiratory 11 L 16 Rate Respiratory Rate [Anterior Bilateral Throughout] Blood Pressure 121/74 121/74 121/74 O2 Sat by Pulse 93 97 Oximetry 12/13/19 12/13/19 12/13/19 14:00 14:30 14:58 Temperature Pulse Rate 82 81 Pulse Rate [ 86 Anterior Bilateral Throughout] Pulse Rate [ From Monitor] Respiratory 14 15 Rate Respiratory 15 Rate [Anterior Bilateral Throughout] Blood Pressure 109/73 109/73 O2 Sat by Pulse 93 98 Oximetry 12/13/19 15:00 Temperature Pulse Rate 82 Pulse Rate [ Anterior Bilateral Throughout] Pulse Rate [ From Monitor] Respiratory 17 Rate Respiratory Rate [Anterior Bilateral Throughout] Blood Pressure 109/73 O2 Sat by Pulse 100 Oximetry - Labs CBC & Chem 7: 12/13/19 05:32 12/13/19 05:32 Labs: Abnormal lab results 12/12/19 12/12/19 12/12/19 Range/Units 09:38 17:44 23:33 WBC (4.5-11.0) K/mm3 RBC (3.65-5.03) M/mm3 Hgb (11.8-15.2) gm/dl Hct (35.5-45.6) % RDW (13.2-15.2) % Seg Neuts % (Manual) (40.0-70.0) % Lymphocytes % (Manual) (13.4-35.0) % Monocytes % (Manual) (0.0-7.3) % Eosinophils % (Manual) (0.0-4.3) % Seg Neutrophils # Man (1.8-7.7) K/mm3 Lymphocytes # (Manual) (1.2-5.4) K/mm3 Monocytes # (Manual) (0.0-0.8) K/mm3 Eosinophils # (Manual) (0.0-0.4) K/mm3 Heparin Anti-Xa Level (0.3-0.7) U.I./ml Carbon Dioxide (22-30) mmol/L Creatinine (0.8-1.3) mg/dL Glucose (75-100) mg/dL POC Glucose 115 H 146 H 126 H (70-105) 12/13/19 12/13/19 12/13/19 Range/Units 05:32 05:32 05:32 WBC 13.1 H (4.5-11.0) K/mm3 RBC 3.27 L (3.65-5.03) M/mm3 Hgb 9.5 L (11.8-15.2) gm/dl Hct 29.3 L (35.5-45.6) % RDW 15.6 H (13.2-15.2) % Seg Neuts % (Manual) 74.0 H (40.0-70.0) % Lymphocytes % (Manual) 8.0 L (13.4-35.0) % Monocytes % (Manual) 9.0 H (0.0-7.3) % Eosinophils % (Manual) 5.0 H (0.0-4.3) % Seg Neutrophils # Man 9.7 H (1.8-7.7) K/mm3 Lymphocytes # (Manual) 1.0 L (1.2-5.4) K/mm3 Monocytes # (Manual) 1.2 H (0.0-0.8) K/mm3 Eosinophils # (Manual) 0.7 H (0.0-0.4) K/mm3 Heparin Anti-Xa Level 0.20 L (0.3-0.7) U.I./ml Carbon Dioxide 31 H (22-30) mmol/L Creatinine 0.6 L (0.8-1.3) mg/dL Glucose 114 H (75-100) mg/dL POC Glucose (70-105) 12/13/19 12/13/19 Range/Units 05:46 11:57 WBC (4.5-11.0) K/mm3 RBC (3.65-5.03) M/mm3 Hgb (11.8-15.2) gm/dl Hct (35.5-45.6) % RDW (13.2-15.2) % Seg Neuts % (Manual) (40.0-70.0) % Lymphocytes % (Manual) (13.4-35.0) % Monocytes % (Manual) (0.0-7.3) % Eosinophils % (Manual) (0.0-4.3) % Seg Neutrophils # Man (1.8-7.7) K/mm3 Lymphocytes # (Manual) (1.2-5.4) K/mm3 Monocytes # (Manual) (0.0-0.8) K/mm3 Eosinophils # (Manual) (0.0-0.4) K/mm3 Heparin Anti-Xa Level (0.3-0.7) U.I./ml Carbon Dioxide (22-30) mmol/L Creatinine (0.8-1.3) mg/dL Glucose (75-100) mg/dL POC Glucose 118 H 133 H (70-105) HEART Score - HEART Score Troponin: Troponin T < 0.010 ng/mL (0.00-0.029) 11/24/19 02:53
[2019-12-13] MEDS: POLYETHYLENE GLYCOL 3350 17 GM POWDER PO SCH (21:51)
[2019-12-13] MEDS: QUEtiapine 100 MG TAB PO SCH (21:52)
[2019-12-14] MEDS: INSULIN LISPRO 100 UNIT/ML VIAL 3 mL SUB-Q SCH ×4 (00:51→18:37)
[2019-12-14] MEDS: fentaNYL DRIP Premix 2,000 MCG/100 ML BAG IV SCH ×3 (03:27→18:32)
[2019-12-14] MEDS: VANCOMYCIN 1,500 MG in SODIUM CHLORIDE 0.9% 500 ML 500 ML IV SCH (03:30)
[2019-12-14] MEDS: CEFEPIME/NS 2 GM/100 ML 2 GM/100 ML BAG IV SCH ×3 (05:47→22:45)
[2019-12-14 06:32] LABS: Hematocrit 30.4 % (35.5-45.6); Hemoglobin 9.6 gm/dl (11.8-15.2)
[2019-12-14] MEDS: METOPROLOL TARTRATE 50 MG TAB PO SCH ×3 (06:47→22:49)
--- NOTE | 2019-12-14 07:49 | Progress Note ---
Assessment and Plan Cultures: Blood culture 12/02/2019 negative Blood culture 11/24/2019 negative Urine culture 11/24/2019 negative COVID-19 negative x2 12/04/2019 resp culture: PsA 12/06/2019 blood cultures: No growth today A/P: 64-year-old male past medical history hypertension, COPD, CAD, CHF with reduced ejection fraction admitted with acute hypoxic respiratory failure likely secondary to pneumonia #Sepsis: With persistent fever 100, likely due to PE/DVT. Procalcitonin improving, from 1.5-->0.6. #Acute hypoxemic respiratory failure: Likely secondary to pneumonia/PE, COVID-19 testing negative x 2. Remains intubated, on CPAP trial #Bilateral pneumonia: COVID-19 negative twice. Culture growing Pseudomonas, pansensitive. Repeat chest x-ray with persistent right base opacity. CT shows PE. #CHF: per primary team #COPD: per pulmonary #Elevated LFTs: worsening ? sepsis. US unremarkable GB #PE/right DVT: on heparin gtt Recs: -stop vancomycin -MRSA neg -continue cefepime IV for now - day 9 of 10 -Monitor LFTs -PE/DVT per primary team will follow MD [facility] ([facility]) Office [phone] Subjective Date of service: 12/14/19 Principal diagnosis: Ac hypoxemic resp failure; Pneumonia; PUI COVID-19; CHF; COPD; HTN Interval history: Remains intubated, T-max 100. Alert on the ventilator. Objective - Exam Narrative Exam: Constitutional: Alert intubated Head, Ears, Nose: Normocephalic, atraumatic. External ears, nose normal Oral: ETT in place, OG tube in place Eyes: Conjunctivae/corneas clear. No icterus. No ptosis. Neck: Supple, no meningeal signs Cardiovascular: RRR Respiratory: diminished GI: Soft, non-tender; bowel sounds normal. No peritoneal signs Musculoskeletal: Left hand swelling left arm with swelling Skin: No rash or abscess Hem/Lymphatic: No palpable cervical or supraclavicular nodes. No lymphangitis Psych: Alert Neurological: Alert - Constitutional Vitals: Vital Signs Temp Pulse Resp BP Pulse Ox 99.0 F 81 18 123/70 99 12/14/19 04:00 12/14/19 06:47 12/14/19 06:30 12/14/19 06:47 12/14/19 06:30 Temperature -Last 24 Hours Temperature 99.0 F Temperature 98.9 F Temperature 100.0 F Temperature 99.9 F Temperature 98.7 F Temperature 98.7 F - Labs CBC & Chem 7: 12/14/19 06:03 12/13/19 05:32 Labs: Abnormal lab results 12/13/19 12/13/19 12/13/19 Range/Units 11:57 17:44 23:46 Hgb (11.8-15.2) gm/dl Hct (35.5-45.6) % Heparin Anti-Xa Level (0.3-0.7) U.I./ml POC Glucose 133 H 161 H 126 H (70-105) 12/14/19 12/14/19 12/14/19 Range/Units 05:32 06:03 06:03 Hgb 9.6 L (11.8-15.2) gm/dl Hct 30.4 L (35.5-45.6) % Heparin Anti-Xa Level 0.24 L (0.3-0.7) U.I./ml POC Glucose 139 H (70-105)
[2019-12-14] MEDS: QUEtiapine 25 MG TAB PO SCH (09:22)
[2019-12-14] MEDS: AMIODARONE 200 MG TAB PO SCH ×2 (09:22→22:48)
[2019-12-14] MEDS: DOCUSATE SODIUM 100 MG/10 ML ORAL LIQD FEEDTUBE SCH ×2 (09:23→22:44)
[2019-12-14] MEDS: FAMOTIDINE 20 MG TAB PO SCH ×2 (09:23→22:44)
[2019-12-14 10:42] LABS: Alanine Aminotransferase 118 units/L (7-56); Albumin 2.3 g/dL (3.9-5); BUN/Creatinine Ratio 27; Blood Urea Nitrogen 16 mg/dL (9-20); Calcium 9.5 mg/dL (8.4-10.2); Hemolysis Index 40
[2019-12-14] MEDS: HEPARIN/ 0.45% NACL DRIP 25,000 UNIT/500 ML BAG IV SCH (11:50)
--- NOTE | 2019-12-14 12:32 | Progress Note ---
Assessment and Plan - Patient Problems (1) Paroxysmal atrial fibrillation Current Visit: Yes Status: Acute Plan to address problem: We will continue conservative cardiac management and supportive measures as previously outlined. Subjective Date of service: 12/14/19 Principal diagnosis: Ac hypoxemic resp failure; Pneumonia; PUI COVID-19; CHF; COPD; HTN Interval history: Patient is sedated, on the vent. He remains in a stable sinus rhythm, and blood pressure. Objective Vital Signs Temp Pulse Pulse Pulse Resp Resp BP 12/14/19 12:00 87 82 20 101/67 12/14/19 11:30 86 12 101/67 12/14/19 11:25 98 H 101/67 12/14/19 11:00 73 13 112/68 12/14/19 10:30 76 12 112/68 12/14/19 10:00 81 13 121/75 12/14/19 09:30 84 13 121/75 12/14/19 09:00 91 H 17 113/75 12/14/19 08:36 107 H 113/75 12/14/19 08:30 118 H 21 113/75 12/14/19 08:00 98.8 F 93 H 83 14 119/67 12/14/19 07:53 90 20 119/67 12/14/19 07:30 72 10 L 123/70 12/14/19 07:00 81 10 L 123/70 12/14/19 06:47 81 123/70 12/14/19 06:30 99 H 18 123/70 12/14/19 06:00 84 9 L 106/59 12/14/19 05:30 79 9 L 106/59 12/14/19 05:00 76 10 L 116/68 12/14/19 04:30 77 11 L 105/63 12/14/19 04:00 99.0 F 83 83 11 L 105/63 12/14/19 03:49 75 105/63 12/14/19 03:30 75 15 105/63 12/14/19 03:00 74 12 102/62 12/14/19 02:30 72 16 102/62 12/14/19 02:00 78 14 105/61 12/14/19 01:30 76 11 L 105/61 12/14/19 01:00 75 14 113/67 12/14/19 00:30 85 8 L 113/67 12/14/19 00:00 98.9 F 81 81 9 L 117/70 12/13/19 23:30 86 12 117/70 12/13/19 23:29 94 H 117/70 12/13/19 23:00 98 H 17 136/84 12/13/19 22:30 94 H 13 136/84 12/13/19 22:00 77 13 123/72 12/13/19 21:52 79 123/72 12/13/19 21:30 95 H 21 123/72 12/13/19 21:00 80 16 131/83 12/13/19 20:30 89 14 131/83 12/13/19 20:00 100.0 F H 83 88 12 131/83 12/13/19 19:30 85 12 131/83 12/13/19 19:28 85 131/83 12/13/19 19:00 88 17 127/74 12/13/19 18:30 102 H 15 141/97 12/13/19 18:00 85 10 L 12/13/19 17:30 93 H 15 141/97 12/13/19 17:00 99 H 14 141/97 12/13/19 16:47 87 14 132/76 12/13/19 16:30 84 13 183/117 12/13/19 16:00 99.9 F H 114 H 114 H 26 H 122/77 12/13/19 15:30 79 14 122/77 12/13/19 15:00 82 17 109/73 12/13/19 14:58 86 15 12/13/19 14:30 81 15 109/73 12/13/19 14:00 82 14 109/73 12/13/19 13:30 80 16 121/74 12/13/19 13:17 79 121/74 12/13/19 13:00 82 11 L 121/74 Pulse Ox 12/14/19 12:00 96 12/14/19 11:30 99 12/14/19 11:25 100 12/14/19 11:00 100 12/14/19 10:30 99 12/14/19 10:00 99 12/14/19 09:30 99 12/14/19 09:00 96 12/14/19 08:36 93 12/14/19 08:30 92 12/14/19 08:00 97 12/14/19 07:53 96 12/14/19 07:30 99 12/14/19 07:00 97 12/14/19 06:47 12/14/19 06:30 99 12/14/19 06:00 95 12/14/19 05:30 97 12/14/19 05:00 98 12/14/19 04:30 98 12/14/19 04:00 99 12/14/19 03:49 97 12/14/19 03:30 98 12/14/19 03:00 97 12/14/19 02:30 98 12/14/19 02:00 99 12/14/19 01:30 99 12/14/19 01:00 98 12/14/19 00:30 98 12/14/19 00:00 98 12/13/19 23:30 96 12/13/19 23:29 95 12/13/19 23:00 96 12/13/19 22:30 93 12/13/19 22:00 99 12/13/19 21:52 12/13/19 21:30 100 12/13/19 21:00 99 12/13/19 20:30 96 12/13/19 20:00 96 12/13/19 19:30 98 12/13/19 19:28 97 12/13/19 19:00 98 12/13/19 18:30 98 12/13/19 18:00 94 12/13/19 17:30 97 12/13/19 17:00 12/13/19 16:47 95 12/13/19 16:30 95 12/13/19 16:00 98 12/13/19 15:30 98 12/13/19 15:00 100 12/13/19 14:58 12/13/19 14:30 98 12/13/19 14:00 93 12/13/19 13:30 97 12/13/19 13:17 12/13/19 13:00 93 - Physical Examination General: Other (intubated) HEENT: Positive: PERRL Neck: Positive: neck supple Cardiac: Positive: Reg Rate and Rhythm Lungs: Positive: Decreased Breath Sounds Neuro: Positive: Other (Intubated and sedated, on the vent) Abdomen: Positive: Soft Skin: Positive: Clear Extremities: Absent: edema - Labs and Meds Cardiac Enzymes 12/14/19 Range/Units 09:37 AST 71 H (5-40) units/L CBC 12/14/19 Range/Units 06:03 Hgb 9.6 L (11.8-15.2) gm/dl Hct 30.4 L (35.5-45.6) % Plt Count 287 (140-440) K/mm3 Comprehensive Metabolic Panel 12/14/19 Range/Units 09:37 Sodium 139 (137-145) mmol/L Potassium 5.0 D (3.6-5.0) mmol/L Chloride 100.0 (98-107) mmol/L Carbon Dioxide 28 (22-30) mmol/L BUN 16 (9-20) mg/dL Creatinine 0.6 L (0.8-1.3) mg/dL Glucose 162 H (75-100) mg/dL Calcium 9.5 (8.4-10.2) mg/dL AST 71 H (5-40) units/L ALT 118 H (7-56) units/L Alkaline Phosphatase 79 (35-129) units/L Total Protein 6.2 L (6.3-8.2) g/dL Albumin 2.3 L (3.9-5) g/dL - Allied health notes Allied health notes reviewed: nursing
--- NOTE | 2019-12-14 12:46 | Progress Note ---
Assessment and Plan Acute hypoxemic respiratory failure Bilateral pneumonia, community acquired. Acute congestive heart failure exacerbation. History of cerebrovascular accident. Acute chronic obstructive pulmonary disease exacerbation. Hypertension and hypertensive urgency at presentation. History of arthritis. Oropharyngeal dysphagia Right Lext DVT Pulmonary embolism Heparin infusion, while monitoring for bleeding SBTs as tolerated Gentle intermittent diuresis, while monitoring renal function, CXR , ABG prn If unable to liberate from MVS in the next few days will need trach and PEG placement. Will optimize volume status - continue to monitor renal function, hemodynamics and electrolyte profile - continue to wean oxygen for O2 sats > 90% - continue bronchodilators with pulmonary hygiene per RT - VAP bundle addressed (Aspiration precautions, HOB >40) - continue to wean per pulmonary driven protocols - continue prn analgesia per CPOT score - follow clinically re: fever curves / trend WBC - Avoid delirium (no benzodiazepines if they can be avoided) - Enteral nutrition at goal rate as tolerated - continue accuchecks with glycemic control per SSI for target blood glucose goal of 140-180 mg/dL while critically ill; Avoid hypoglycemia - continue VTE prophylaxis with Heparin - continue stress ulcer prophylaxis with Famotidine - continue mobility protocols for pressure ulcer prophylaxis - continue fall precautions - continue wound care management per RN / WCT - Supportive transfusions as indicated to keep HgB>7g/dL - Continue to monitor neurologic function - Continue chronic home medications as clinically indicated - Continue all supportive care CONDITION: CRITICAL PROGNOSIS: GUARDED CODE STATUS: FULL CODE The high probability of a clinically significant, sudden or life threatening deterioration of the [Respiratory, cardiovascular & neurological] system(s) required my full and direct attention, intervention and personal management. The aggregate critical care time was [33] minutes without overlap. Time includes spent on [x] Data Review and interpretation [x] Patient assessment and monitoring of vital signs [x] Documentation [x] Medication orders and management Subjective Date of service: 12/14/19 Principal diagnosis: Ac hypoxemic resp failure; Pneumonia; PUI COVID-19; CHF; COPD; HTN Interval history: Patient is seen today for: Acute hypoxemic respiratory failure; Ad[place]. Pneumonia (CAP); PUI COVID-19 infection; AE-CHF; AE-COPD; H/O CVA; HTN; PE, DVT Seen and examined at bedside; 24 hour events reviewed; nursing and respiratory care staff consulted; no adverse overnight events reported to me; resting peacefully in bed; ETT in place. No asynchrony, Vent 500/12/8/40%. On Fentanyl at 2 mcg, heparin infusion was resumed, old blood in tracheal aspirate Objective Vital Signs - 12hr 12/14/19 12/14/19 12/14/19 01:00 01:30 02:00 Temperature Pulse Rate 75 76 78 Pulse Rate [ From Monitor] Respiratory 14 11 L 14 Rate Blood Pressure 113/67 105/61 105/61 O2 Sat by Pulse 98 99 99 Oximetry 12/14/19 12/14/19 12/14/19 02:30 03:00 03:30 Temperature Pulse Rate 72 74 75 Pulse Rate [ From Monitor] Respiratory 16 12 15 Rate Blood Pressure 102/62 102/62 105/63 O2 Sat by Pulse 98 97 98 Oximetry 12/14/19 12/14/19 12/14/19 03:49 04:00 04:30 Temperature 99.0 F Pulse Rate 75 83 77 Pulse Rate [ 83 From Monitor] Respiratory 11 L 11 L Rate Blood Pressure 105/63 105/63 105/63 O2 Sat by Pulse 97 99 98 Oximetry 12/14/19 12/14/19 12/14/19 05:00 05:30 06:00 Temperature Pulse Rate 76 79 84 Pulse Rate [ From Monitor] Respiratory 10 L 9 L 9 L Rate Blood Pressure 116/68 106/59 106/59 O2 Sat by Pulse 98 97 95 Oximetry 12/14/19 12/14/19 12/14/19 06:30 06:47 07:00 Temperature Pulse Rate 99 H 81 81 Pulse Rate [ From Monitor] Respiratory 18 10 L Rate Blood Pressure 123/70 123/70 123/70 O2 Sat by Pulse 99 97 Oximetry 12/14/19 12/14/19 12/14/19 07:30 07:53 08:00 Temperature 98.8 F Pulse Rate 72 90 93 H Pulse Rate [ 83 From Monitor] Respiratory 10 L 20 14 Rate Blood Pressure 123/70 119/67 119/67 O2 Sat by Pulse 99 96 97 Oximetry 12/14/19 12/14/19 12/14/19 08:30 08:36 09:00 Temperature Pulse Rate 118 H 107 H 91 H Pulse Rate [ From Monitor] Respiratory 21 17 Rate Blood Pressure 113/75 113/75 113/75 O2 Sat by Pulse 92 93 96 Oximetry 12/14/19 12/14/19 12/14/19 09:30 10:00 10:30 Temperature Pulse Rate 84 81 76 Pulse Rate [ From Monitor] Respiratory 13 13 12 Rate Blood Pressure 121/75 121/75 112/68 O2 Sat by Pulse 99 99 99 Oximetry 12/14/19 12/14/19 12/14/19 11:00 11:25 11:30 Temperature Pulse Rate 73 98 H 86 Pulse Rate [ From Monitor] Respiratory 13 12 Rate Blood Pressure 112/68 101/67 101/67 O2 Sat by Pulse 100 100 99 Oximetry 12/14/19 12:00 Temperature Pulse Rate 87 Pulse Rate [ 82 From Monitor] Respiratory 20 Rate Blood Pressure 101/67 O2 Sat by Pulse 96 Oximetry Constitutional: no acute distress, agitated, other (elderly and obese male, normocephalic with mildly increased respiratory effort at rest on MVS) Eyes: non-icteric ENT: oropharynx moist, other (ETT 24 cm JASON) Neck: supple, no JVD Effort: very labored Ascultation: Bilateral: clear, diminished breath sounds, rhonchi (scant; improved RLL air entry also) Percussion: Bilateral: not dull Cardiovascular: irregular rhythm Gastrointestinal: normoactive bowel sounds, soft, non-tender, non-distended Integumentary: normal Extremities: no cyanosis, no edema, pulses normal, no ischemia or petechiae Neurologic: non-focal exam (moves all extremities with extreme agitation), pupils equal and round, motor strength normal and, other (sedated lightly) Psychiatric: mood appropriate, affect normal CBC and BMP: 12/16/19 05:46 12/16/19 05:46 ABG, PT/INR, D-dimer: ABG ABG pH 7.439 (7.320-7.450) 12/02/19 12:58 POC ABG pCO2 45.1 mmHg (32.0-48.0) 12/02/19 12:58 ABG pCO2 43.4 mm Hg 11/30/19 04:56 POC ABG pO2 78.1 mmHg (83-108) L 12/02/19 12:58 ABG pO2 56.3 mm Hg (80.0-90.0) L 11/30/19 04:56 POC ABG HCO3 29.9 12/02/19 12:58 ABG O2 Saturation 91.5 % (95.0-99.0) L 11/30/19 04:56 PT/INR, D-dimer PT 14.0 Sec. (12.2-14.9) 12/10/19 21:20 INR 1.06 (0.87-1.13) 12/10/19 21:20 Abnormal lab findings: Abnormal Labs 11/24/19 11/24/19 11/24/19 02:53 02:53 03:45 WBC 14.3 H RBC Hgb Hct MCHC RDW 17.2 H Lymph % (Auto) [place] % (Auto) [place] # Eos # Seg Neutrophils % Seg Neuts % (Manual) Lymphocytes % (Manual) Monocytes % (Manual) Eosinophils % (Manual) Basophils % (Manual) Seg Neutrophils # Seg Neutrophils # Man 8.3 H Lymphocytes # (Manual) Monocytes # (Manual) 0.9 H Eosinophils # (Manual) Basophils # (Manual) Heparin Anti-Xa Level ABG pH 7.313 L POC ABG pO2 ABG pO2 102.8 H ABG HCO3 ABG O2 Saturation ABG Base Excess -2.9 L ABG Hemoglobin ABG Oxyhemoglobin Oxyhemoglobin 93.9 L Sodium Potassium Chloride Carbon Dioxide BUN Creatinine Glucose 195 H POC Glucose Lactic Acid Calcium Phosphorus Magnesium AST ALT Lactate Dehydrogenase CK-MB (CK-2) 4.3 H C-Reactive Protein NT-Pro-B Natriuret Pep 1181 H Total Protein Albumin Urine WBC (Auto) 11/24/19 11/24/19 11/24/19 04:53 04:53 10:37 WBC RBC Hgb Hct MCHC RDW Lymph % (Auto) [place] % (Auto) [place] # Eos # Seg Neutrophils % Seg Neuts % (Manual) Lymphocytes % (Manual) Monocytes % (Manual) Eosinophils % (Manual) Basophils % (Manual) Seg Neutrophils # Seg Neutrophils # Man Lymphocytes # (Manual) Monocytes # (Manual) Eosinophils # (Manual) Basophils # (Manual) Heparin Anti-Xa Level ABG pH POC ABG pO2 ABG pO2 ABG HCO3 ABG O2 Saturation ABG Base Excess ABG Hemoglobin ABG Oxyhemoglobin Oxyhemoglobin Sodium Potassium Chloride Carbon Dioxide BUN Creatinine Glucose 162 H POC Glucose Lactic Acid 2.40 H* 2.50 H* Calcium Phosphorus Magnesium AST ALT Lactate Dehydrogenase 240 H CK-MB (CK-2) C-Reactive Protein NT-Pro-B Natriuret Pep Total Protein Albumin Urine WBC (Auto) 11/24/19 11/24/19 11/24/19 12:21 14:50 19:54 WBC RBC Hgb Hct MCHC RDW Lymph % (Auto) [place] % (Auto) [place] # Eos # Seg Neutrophils % Seg Neuts % (Manual) Lymphocytes % (Manual) Monocytes % (Manual) Eosinophils % (Manual) Basophils % (Manual) Seg Neutrophils # Seg Neutrophils # Man Lymphocytes # (Manual) Monocytes # (Manual) Eosinophils # (Manual) Basophils # (Manual) Heparin Anti-Xa Level ABG pH POC ABG pO2 ABG pO2 ABG HCO3 ABG O2 Saturation ABG Base Excess ABG Hemoglobin ABG Oxyhemoglobin Oxyhemoglobin Sodium Potassium Chloride Carbon Dioxide BUN Creatinine Glucose POC Glucose 145 H 143 H 124 H Lactic Acid Calcium Phosphorus Magnesium AST ALT Lactate Dehydrogenase CK-MB (CK-2) C-Reactive Protein NT-Pro-B Natriuret Pep Total Protein Albumin Urine WBC (Auto) 11/25/19 11/25/19 11/25/19 00:18 03:18 05:11 WBC 13.7 H RBC Hgb Hct MCHC RDW 17.1 H Lymph % (Auto) 10.8 L [place] % (Auto) 8.7 H [place] # 1.2 H Eos # Seg Neutrophils % 80.2 H Seg Neuts % (Manual) Lymphocytes % (Manual) Monocytes % (Manual) Eosinophils % (Manual) Basophils % (Manual) Seg Neutrophils # 11.0 H Seg Neutrophils # Man Lymphocytes # (Manual) Monocytes # (Manual) Eosinophils # (Manual) Basophils # (Manual) Heparin Anti-Xa Level ABG pH 7.333 L POC ABG pO2 ABG pO2 61.2 L ABG HCO3 ABG O2 Saturation 90.2 L ABG Base Excess ABG Hemoglobin 13.7 L ABG Oxyhemoglobin Oxyhemoglobin 88.2 L Sodium Potassium Chloride Carbon Dioxide BUN Creatinine Glucose POC Glucose 109 H Lactic Acid Calcium Phosphorus Magnesium AST ALT Lactate Dehydrogenase CK-MB (CK-2) C-Reactive Protein NT-Pro-B Natriuret Pep Total Protein Albumin Urine WBC (Auto) 11/25/19 11/25/19 11/26/19 05:11 11:40 03:12 WBC RBC Hgb Hct MCHC RDW Lymph % (Auto) [place] % (Auto) [place] # Eos # Seg Neutrophils % Seg Neuts % (Manual) Lymphocytes % (Manual) Monocytes % (Manual) Eosinophils % (Manual) Basophils % (Manual) Seg Neutrophils # Seg Neutrophils # Man Lymphocytes # (Manual) Monocytes # (Manual) Eosinophils # (Manual) Basophils # (Manual) Heparin Anti-Xa Level ABG pH POC ABG pO2 ABG pO2 155.1 H ABG HCO3 27.8 H ABG O2 Saturation ABG Base Excess ABG Hemoglobin 12.2 L ABG Oxyhemoglobin Oxyhemoglobin Sodium Potassium Chloride Carbon Dioxide BUN 23 H Creatinine Glucose 110 H POC Glucose 108 H Lactic Acid Calcium Phosphorus Magnesium AST ALT Lactate Dehydrogenase CK-MB (CK-2) C-Reactive Protein NT-Pro-B Natriuret Pep Total Protein Albumin Urine WBC (Auto) 11/26/19 11/26/19 11/26/19 06:17 10:43 10:43 WBC 11.4 H RBC Hgb Hct MCHC RDW 17.1 H Lymph % (Auto) [place] % (Auto) [place] # Eos # Seg Neutrophils % Seg Neuts % (Manual) Lymphocytes % (Manual) Monocytes % (Manual) Eosinophils % (Manual) Basophils % (Manual) Seg Neutrophils # Seg Neutrophils # Man Lymphocytes # (Manual) Monocytes # (Manual) Eosinophils # (Manual) Basophils # (Manual) Heparin Anti-Xa Level ABG pH POC ABG pO2 ABG pO2 ABG HCO3 ABG O2 Saturation ABG Base Excess ABG Hemoglobin ABG Oxyhemoglobin Oxyhemoglobin Sodium Potassium Chloride Carbon Dioxide BUN 29 H Creatinine Glucose POC Glucose 107 H Lactic Acid Calcium Phosphorus Magnesium AST ALT Lactate Dehydrogenase CK-MB (CK-2) C-Reactive Protein NT-Pro-B Natriuret Pep Total Protein Albumin Urine WBC (Auto) 11/26/19 11/27/19 11/27/19 17:11 01:53 04:11 WBC RBC Hgb Hct MCHC RDW Lymph % (Auto) [place] % (Auto) [place] # Eos # Seg Neutrophils % Seg Neuts % (Manual) Lymphocytes % (Manual) Monocytes % (Manual) Eosinophils % (Manual) Basophils % (Manual) Seg Neutrophils # Seg Neutrophils # Man Lymphocytes # (Manual) Monocytes # (Manual) Eosinophils # (Manual) Basophils # (Manual) Heparin Anti-Xa Level ABG pH POC ABG pO2 ABG pO2 ABG HCO3 29.2 H ABG O2 Saturation ABG Base Excess 3.4 H ABG Hemoglobin 13.3 L ABG Oxyhemoglobin Oxyhemoglobin 94.5 L Sodium Potassium Chloride Carbon Dioxide BUN Creatinine Glucose POC Glucose 113 H 108 H Lactic Acid Calcium Phosphorus Magnesium AST ALT Lactate Dehydrogenase CK-MB (CK-2) C-Reactive Protein NT-Pro-B Natriuret Pep Total Protein Albumin Urine WBC (Auto) 11/27/19 11/28/19 11/28/19 05:27 05:00 05:25 WBC RBC Hgb Hct MCHC RDW Lymph % (Auto) [place] % (Auto) [place] # Eos # Seg Neutrophils % Seg Neuts % (Manual) Lymphocytes % (Manual) Monocytes % (Manual) Eosinophils % (Manual) Basophils % (Manual) Seg Neutrophils # Seg Neutrophils # Man Lymphocytes # (Manual) Monocytes # (Manual) Eosinophils # (Manual) Basophils # (Manual) Heparin Anti-Xa Level ABG pH POC ABG pO2 68.1 L ABG pO2 ABG HCO3 ABG O2 Saturation ABG Base Excess ABG Hemoglobin ABG Oxyhemoglobin 91.2 L Oxyhemoglobin Sodium Potassium Chloride Carbon Dioxide BUN Creatinine Glucose POC Glucose 111 H 110 H Lactic Acid Calcium Phosphorus Magnesium AST ALT Lactate Dehydrogenase CK-MB (CK-2) C-Reactive Protein NT-Pro-B Natriuret Pep Total Protein Albumin Urine WBC (Auto) 11/28/19 11/28/19 11/28/19 12:08 13:47 13:47 WBC 11.3 H RBC Hgb Hct MCHC RDW 16.1 H Lymph % (Auto) [place] % (Auto) 9.9 H [place] # 1.1 H Eos # Seg Neutrophils % 71.4 H Seg Neuts % (Manual) Lymphocytes % (Manual) Monocytes % (Manual) Eosinophils % (Manual) Basophils % (Manual) Seg Neutrophils # 8.1 H Seg Neutrophils # Man Lymphocytes # (Manual) Monocytes # (Manual) Eosinophils # (Manual) Basophils # (Manual) Heparin Anti-Xa Level ABG pH POC ABG pO2 ABG pO2 ABG HCO3 ABG O2 Saturation ABG Base Excess ABG Hemoglobin ABG Oxyhemoglobin Oxyhemoglobin Sodium Potassium Chloride Carbon Dioxide BUN 23 H Creatinine Glucose 123 H POC Glucose 112 H Lactic Acid Calcium Phosphorus Magnesium AST ALT Lactate Dehydrogenase CK-MB (CK-2) C-Reactive Protein NT-Pro-B Natriuret Pep Total Protein Albumin 3.7 L Urine WBC (Auto) 11/28/19 11/29/19 11/29/19 17:26 03:55 17:04 WBC RBC Hgb Hct MCHC RDW Lymph % (Auto) [place] % (Auto) [place] # Eos # Seg Neutrophils % Seg Neuts % (Manual) Lymphocytes % (Manual) Monocytes % (Manual) Eosinophils % (Manual) Basophils % (Manual) Seg Neutrophils # Seg Neutrophils # Man Lymphocytes # (Manual) Monocytes # (Manual) Eosinophils # (Manual) Basophils # (Manual) Heparin Anti-Xa Level ABG pH POC ABG pO2 ABG pO2 65.7 L ABG HCO3 28.3 H ABG O2 Saturation 93.9 L ABG Base Excess 3.6 H ABG Hemoglobin 13.3 L ABG Oxyhemoglobin Oxyhemoglobin 91.5 L Sodium Potassium Chloride Carbon Dioxide BUN Creatinine Glucose POC Glucose 123 H 119 H Lactic Acid Calcium Phosphorus Magnesium AST ALT Lactate Dehydrogenase CK-MB (CK-2) C-Reactive Protein NT-Pro-B Natriuret Pep Total Protein Albumin Urine WBC (Auto) 11/30/19 11/30/19 11/30/19 04:17 04:17 04:56 WBC 13.4 H RBC Hgb Hct MCHC RDW 15.6 H Lymph % (Auto) [place] % (Auto) [place] # Eos # Seg Neutrophils % Seg Neuts % (Manual) Lymphocytes % (Manual) Monocytes % (Manual) Eosinophils % (Manual) Basophils % (Manual) Seg Neutrophils # Seg Neutrophils # Man Lymphocytes # (Manual) Monocytes # (Manual) Eosinophils # (Manual) Basophils # (Manual) Heparin Anti-Xa Level ABG pH POC ABG pO2 ABG pO2 56.3 L ABG HCO3 29.3 H ABG O2 Saturation 91.5 L ABG Base Excess 4.7 H ABG Hemoglobin 12.1 L ABG Oxyhemoglobin Oxyhemoglobin 89.2 L Sodium 147 H Potassium Chloride Carbon Dioxide BUN 30 H Creatinine Glucose 124 H POC Glucose Lactic Acid Calcium Phosphorus Magnesium AST ALT Lactate Dehydrogenase CK-MB (CK-2) C-Reactive Protein NT-Pro-B Natriuret Pep Total Protein Albumin 3.8 L Urine WBC (Auto) 11/30/19 11/30/19 11/30/19 05:51 11:54 18:17 WBC RBC Hgb Hct MCHC RDW Lymph % (Auto) [place] % (Auto) [place] # Eos # Seg Neutrophils % Seg Neuts % (Manual) Lymphocytes % (Manual) Monocytes % (Manual) Eosinophils % (Manual) Basophils % (Manual) Seg Neutrophils # Seg Neutrophils # Man Lymphocytes # (Manual) Monocytes # (Manual) Eosinophils # (Manual) Basophils # (Manual) Heparin Anti-Xa Level ABG pH POC ABG pO2 ABG pO2 ABG HCO3 ABG O2 Saturation ABG Base Excess ABG Hemoglobin ABG Oxyhemoglobin Oxyhemoglobin Sodium Potassium Chloride Carbon Dioxide BUN Creatinine Glucose POC Glucose 127 H 115 H 143 H Lactic Acid Calcium Phosphorus Magnesium AST ALT Lactate Dehydrogenase CK-MB (CK-2) C-Reactive Protein NT-Pro-B Natriuret Pep Total Protein Albumin Urine WBC (Auto) 12/01/19 12/01/19 12/01/19 01:18 05:22 12:16 WBC RBC Hgb Hct MCHC RDW Lymph % (Auto) [place] % (Auto) [place] # Eos # Seg Neutrophils % Seg Neuts % (Manual) Lymphocytes % (Manual) Monocytes % (Manual) Eosinophils % (Manual) Basophils % (Manual) Seg Neutrophils # Seg Neutrophils # Man Lymphocytes # (Manual) Monocytes # (Manual) Eosinophils # (Manual) Basophils # (Manual) Heparin Anti-Xa Level ABG pH POC ABG pO2 ABG pO2 ABG HCO3 ABG O2 Saturation ABG Base Excess ABG Hemoglobin ABG Oxyhemoglobin Oxyhemoglobin Sodium Potassium 3.5 L Chloride 107.8 H Carbon Dioxide BUN 37 H Creatinine Glucose 157 H POC Glucose 118 H 148 H Lactic Acid Calcium 8.2 L D Phosphorus Magnesium AST 48 H ALT 60 H Lactate Dehydrogenase 194 H CK-MB (CK-2) C-Reactive Protein 8.50 H NT-Pro-B Natriuret Pep Total Protein 5.5 L Albumin 2.8 L Urine WBC (Auto) 12/01/19 12/02/19 12/02/19 18:04 00:05 05:16 WBC 11.4 H RBC Hgb Hct MCHC RDW 15.9 H Lymph % (Auto) [place] % (Auto) 9.9 H [place] # 1.1 H Eos # Seg Neutrophils % 70.3 H Seg Neuts % (Manual) Lymphocytes % (Manual) Monocytes % (Manual) Eosinophils % (Manual) Basophils % (Manual) Seg Neutrophils # 8.0 H Seg Neutrophils # Man Lymphocytes # (Manual) Monocytes # (Manual) Eosinophils # (Manual) Basophils # (Manual) Heparin Anti-Xa Level ABG pH POC ABG pO2 ABG pO2 ABG HCO3 ABG O2 Saturation ABG Base Excess ABG Hemoglobin ABG Oxyhemoglobin Oxyhemoglobin Sodium Potassium Chloride Carbon Dioxide BUN Creatinine Glucose POC Glucose 143 H 107 H Lactic Acid Calcium Phosphorus Magnesium AST ALT Lactate Dehydrogenase CK-MB (CK-2) C-Reactive Protein NT-Pro-B Natriuret Pep Total Protein Albumin Urine WBC (Auto) 12/02/19 12/02/19 12/02/19 05:16 06:03 11:52 WBC RBC Hgb Hct MCHC RDW Lymph % (Auto) [place] % (Auto) [place] # Eos # Seg Neutrophils % Seg Neuts % (Manual) Lymphocytes % (Manual) Monocytes % (Manual) Eosinophils % (Manual) Basophils % (Manual) Seg Neutrophils # Seg Neutrophils # Man Lymphocytes # (Manual) Monocytes # (Manual) Eosinophils # (Manual) Basophils # (Manual) Heparin Anti-Xa Level ABG pH POC ABG pO2 ABG pO2 ABG HCO3 ABG O2 Saturation ABG Base Excess ABG Hemoglobin ABG Oxyhemoglobin Oxyhemoglobin Sodium 146 H Potassium Chloride Carbon Dioxide BUN 28 H Creatinine Glucose 123 H POC Glucose 110 H 152 H Lactic Acid Calcium Phosphorus Magnesium AST ALT Lactate Dehydrogenase CK-MB (CK-2) C-Reactive Protein NT-Pro-B Natriuret Pep Total Protein Albumin Urine WBC (Auto) 12/02/19 12/02/19 12/02/19 12:58 17:58 23:36 WBC RBC Hgb Hct MCHC RDW Lymph % (Auto) [place] % (Auto) [place] # Eos # Seg Neutrophils % Seg Neuts % (Manual) Lymphocytes % (Manual) Monocytes % (Manual) Eosinophils % (Manual) Basophils % (Manual) Seg Neutrophils # Seg Neutrophils # Man Lymphocytes # (Manual) Monocytes # (Manual) Eosinophils # (Manual) Basophils # (Manual) Heparin Anti-Xa Level ABG pH POC ABG pO2 78.1 L ABG pO2 ABG HCO3 ABG O2 Saturation ABG Base Excess ABG Hemoglobin ABG Oxyhemoglobin Oxyhemoglobin Sodium Potassium Chloride Carbon Dioxide BUN Creatinine Glucose POC Glucose 120 H 123 H Lactic Acid Calcium Phosphorus Magnesium AST ALT Lactate Dehydrogenase CK-MB (CK-2) C-Reactive Protein NT-Pro-B Natriuret Pep Total Protein Albumin Urine WBC (Auto) 12/03/19 12/03/19 12/03/19 06:03 06:14 11:46 WBC RBC Hgb Hct MCHC RDW Lymph % (Auto) [place] % (Auto) [place] # Eos # Seg Neutrophils % Seg Neuts % (Manual) Lymphocytes % (Manual) Monocytes % (Manual) Eosinophils % (Manual) Basophils % (Manual) Seg Neutrophils # Seg Neutrophils # Man Lymphocytes # (Manual) Monocytes # (Manual) Eosinophils # (Manual) Basophils # (Manual) Heparin Anti-Xa Level ABG pH POC ABG pO2 ABG pO2 ABG HCO3 ABG O2 Saturation ABG Base Excess ABG Hemoglobin ABG Oxyhemoglobin Oxyhemoglobin Sodium Potassium Chloride Carbon Dioxide BUN Creatinine Glucose POC Glucose 142 H 130 H Lactic Acid Calcium Phosphorus Magnesium AST ALT Lactate Dehydrogenase CK-MB (CK-2) C-Reactive Protein NT-Pro-B Natriuret Pep Total Protein Albumin Urine WBC (Auto) 8.0 H 12/03/19 12/03/19 12/04/19 15:50 17:39 00:04 WBC RBC Hgb Hct MCHC RDW Lymph % (Auto) [place] % (Auto) [place] # Eos # Seg Neutrophils % Seg Neuts % (Manual) Lymphocytes % (Manual) Monocytes % (Manual) Eosinophils % (Manual) Basophils % (Manual) Seg Neutrophils # Seg Neutrophils # Man Lymphocytes # (Manual) Monocytes # (Manual) Eosinophils # (Manual) Basophils # (Manual) Heparin Anti-Xa Level ABG pH POC ABG pO2 ABG pO2 ABG HCO3 ABG O2 Saturation ABG Base Excess ABG Hemoglobin ABG Oxyhemoglobin Oxyhemoglobin Sodium Potassium Chloride Carbon Dioxide BUN Creatinine Glucose POC Glucose 146 H 133 H Lactic Acid Calcium Phosphorus 2.40 L Magnesium AST ALT Lactate Dehydrogenase CK-MB (CK-2) C-Reactive Protein NT-Pro-B Natriuret Pep Total Protein Albumin Urine WBC (Auto) 12/04/19 12/04/19 12/04/19 03:58 03:58 05:22 WBC 12.5 H RBC Hgb 11.2 L Hct 35.2 L MCHC RDW 16.0 H Lymph % (Auto) [place] % (Auto) 9.6 H [place] # 1.2 H Eos # 0.5 H Seg Neutrophils % Seg Neuts % (Manual) Lymphocytes % (Manual) Monocytes % (Manual) Eosinophils % (Manual) Basophils % (Manual) Seg Neutrophils # 8.6 H Seg Neutrophils # Man Lymphocytes # (Manual) Monocytes # (Manual) Eosinophils # (Manual) Basophils # (Manual) Heparin Anti-Xa Level ABG pH POC ABG pO2 ABG pO2 ABG HCO3 ABG O2 Saturation ABG Base Excess ABG Hemoglobin ABG Oxyhemoglobin Oxyhemoglobin Sodium 146 H Potassium Chloride 108.6 H Carbon Dioxide BUN 30 H Creatinine 0.7 L Glucose 121 H POC Glucose 132 H Lactic Acid Calcium Phosphorus Magnesium AST ALT Lactate Dehydrogenase CK-MB (CK-2) C-Reactive Protein NT-Pro-B Natriuret Pep Total Protein Albumin Urine WBC (Auto) 12/04/19 12/04/19 12/05/19 13:26 18:43 00:19 WBC RBC Hgb Hct MCHC RDW Lymph % (Auto) [place] % (Auto) [place] # Eos # Seg Neutrophils % Seg Neuts % (Manual) Lymphocytes % (Manual) Monocytes % (Manual) Eosinophils % (Manual) Basophils % (Manual) Seg Neutrophils # Seg Neutrophils # Man Lymphocytes # (Manual) Monocytes # (Manual) Eosinophils # (Manual) Basophils # (Manual) Heparin Anti-Xa Level ABG pH POC ABG pO2 ABG pO2 ABG HCO3 ABG O2 Saturation ABG Base Excess ABG Hemoglobin ABG Oxyhemoglobin Oxyhemoglobin Sodium Potassium Chloride Carbon Dioxide BUN Creatinine Glucose POC Glucose 185 H 156 H 150 H Lactic Acid Calcium Phosphorus Magnesium AST ALT Lactate Dehydrogenase CK-MB (CK-2) C-Reactive Protein NT-Pro-B Natriuret Pep Total Protein Albumin Urine WBC (Auto) 12/05/19 12/05/19 12/05/19 03:37 03:37 05:14 WBC 16.3 H RBC Hgb 11.4 L Hct MCHC RDW 15.6 H Lymph % (Auto) 9.9 L [place] % (Auto) 9.7 H [place] # 1.6 H Eos # Seg Neutrophils % 78.0 H Seg Neuts % (Manual) Lymphocytes % (Manual) Monocytes % (Manual) Eosinophils % (Manual) Basophils % (Manual) Seg Neutrophils # 12.7 H Seg Neutrophils # Man Lymphocytes # (Manual) Monocytes # (Manual) Eosinophils # (Manual) Basophils # (Manual) Heparin Anti-Xa Level ABG pH POC ABG pO2 ABG pO2 ABG HCO3 ABG O2 Saturation ABG Base Excess ABG Hemoglobin ABG Oxyhemoglobin Oxyhemoglobin Sodium 146 H Potassium Chloride 107.2 H Carbon Dioxide BUN 27 H Creatinine 0.7 L Glucose 171 H POC Glucose 168 H Lactic Acid Calcium Phosphorus Magnesium AST ALT Lactate Dehydrogenase CK-MB (CK-2) C-Reactive Protein NT-Pro-B Natriuret Pep Total Protein Albumin Urine WBC (Auto) 12/05/19 12/05/19 12/05/19 12:31 18:10 23:58 WBC RBC Hgb Hct MCHC RDW Lymph % (Auto) [place] % (Auto) [place] # Eos # Seg Neutrophils % Seg Neuts % (Manual) Lymphocytes % (Manual) Monocytes % (Manual) Eosinophils % (Manual) Basophils % (Manual) Seg Neutrophils # Seg Neutrophils # Man Lymphocytes # (Manual) Monocytes # (Manual) Eosinophils # (Manual) Basophils # (Manual) Heparin Anti-Xa Level ABG pH POC ABG pO2 ABG pO2 ABG HCO3 ABG O2 Saturation ABG Base Excess ABG Hemoglobin ABG Oxyhemoglobin Oxyhemoglobin Sodium Potassium Chloride Carbon Dioxide BUN Creatinine Glucose POC Glucose 159 H 198 H 115 H Lactic Acid Calcium Phosphorus Magnesium AST ALT Lactate Dehydrogenase CK-MB (CK-2) C-Reactive Protein NT-Pro-B Natriuret Pep Total Protein Albumin Urine WBC (Auto) 12/06/19 12/06/19 12/06/19 05:24 05:24 05:25 WBC 14.9 H RBC Hgb 10.8 L Hct 34.0 L MCHC RDW 15.6 H Lymph % (Auto) 10.7 L [place] % (Auto) 8.3 H [place] # 1.2 H Eos # Seg Neutrophils % 78.7 H Seg Neuts % (Manual) Lymphocytes % (Manual) Monocytes % (Manual) Eosinophils % (Manual) Basophils % (Manual) Seg Neutrophils # 11.7 H Seg Neutrophils # Man Lymphocytes # (Manual) Monocytes # (Manual) Eosinophils # (Manual) Basophils # (Manual) Heparin Anti-Xa Level ABG pH POC ABG pO2 ABG pO2 ABG HCO3 ABG O2 Saturation ABG Base Excess ABG Hemoglobin ABG Oxyhemoglobin Oxyhemoglobin Sodium 148 H Potassium 5.1 H Chloride 107.6 H Carbon Dioxide BUN 27 H Creatinine 0.7 L Glucose 155 H POC Glucose 157 H Lactic Acid Calcium Phosphorus Magnesium AST ALT Lactate Dehydrogenase CK-MB (CK-2) C-Reactive Protein NT-Pro-B Natriuret Pep Total Protein Albumin Urine WBC (Auto) 12/07/19 12/07/19 12/07/19 00:13 05:34 11:33 WBC RBC Hgb Hct MCHC RDW Lymph % (Auto) [place] % (Auto) [place] # Eos # Seg Neutrophils % Seg Neuts % (Manual) Lymphocytes % (Manual) Monocytes % (Manual) Eosinophils % (Manual) Basophils % (Manual) Seg Neutrophils # Seg Neutrophils # Man Lymphocytes # (Manual) Monocytes # (Manual) Eosinophils # (Manual) Basophils # (Manual) Heparin Anti-Xa Level ABG pH POC ABG pO2 ABG pO2 ABG HCO3 ABG O2 Saturation ABG Base Excess ABG Hemoglobin ABG Oxyhemoglobin Oxyhemoglobin Sodium Potassium Chloride Carbon Dioxide BUN Creatinine Glucose POC Glucose 142 H 111 H 169 H Lactic Acid Calcium Phosphorus Magnesium AST ALT Lactate Dehydrogenase CK-MB (CK-2) C-Reactive Protein NT-Pro-B Natriuret Pep Total Protein Albumin Urine WBC (Auto) 12/07/19 12/07/19 12/07/19 12:41 13:25 18:19 WBC 12.4 H RBC 3.53 L Hgb 10.2 L Hct 32.1 L MCHC RDW 15.3 H Lymph % (Auto) 10.6 L [place] % (Auto) 7.8 H [place] # 1.0 H Eos # Seg Neutrophils % 77.6 H Seg Neuts % (Manual) Lymphocytes % (Manual) Monocytes % (Manual) Eosinophils % (Manual) Basophils % (Manual) Seg Neutrophils # 9.6 H Seg Neutrophils # Man Lymphocytes # (Manual) Monocytes # (Manual) Eosinophils # (Manual) Basophils # (Manual) Heparin Anti-Xa Level ABG pH POC ABG pO2 ABG pO2 ABG HCO3 ABG O2 Saturation ABG Base Excess ABG Hemoglobin ABG Oxyhemoglobin Oxyhemoglobin Sodium 149 H Potassium Chloride 108.4 H Carbon Dioxide BUN 26 H Creatinine 0.6 L Glucose 149 H POC Glucose 164 H Lactic Acid Calcium Phosphorus Magnesium 2.60 H AST 121 H ALT 145 H Lactate Dehydrogenase CK-MB (CK-2) C-Reactive Protein NT-Pro-B Natriuret Pep Total Protein Albumin 2.6 L Urine WBC (Auto) 12/07/19 12/08/19 12/08/19 22:25 00:02 03:55 WBC 13.3 H RBC 3.40 L Hgb 9.7 L Hct 30.8 L MCHC 31 L RDW 15.5 H Lymph % (Auto) [place] % (Auto) 8.1 H [place] # 1.1 H Eos # Seg Neutrophils % 73.0 H Seg Neuts % (Manual) Lymphocytes % (Manual) Monocytes % (Manual) Eosinophils % (Manual) Basophils % (Manual) Seg Neutrophils # 9.7 H Seg Neutrophils # Man Lymphocytes # (Manual) Monocytes # (Manual) Eosinophils # (Manual) Basophils # (Manual) Heparin Anti-Xa Level 0.12 L ABG pH POC ABG pO2 ABG pO2 ABG HCO3 ABG O2 Saturation ABG Base Excess ABG Hemoglobin ABG Oxyhemoglobin Oxyhemoglobin Sodium Potassium Chloride Carbon Dioxide BUN Creatinine Glucose POC Glucose 151 H Lactic Acid Calcium Phosphorus Magnesium AST ALT Lactate Dehydrogenase CK-MB (CK-2) C-Reactive Protein NT-Pro-B Natriuret Pep Total Protein Albumin Urine WBC (Auto) 12/08/19 12/08/19 12/08/19 03:55 05:21 06:01 WBC RBC Hgb Hct MCHC RDW Lymph % (Auto) [place] % (Auto) [place] # Eos # Seg Neutrophils % Seg Neuts % (Manual) Lymphocytes % (Manual) Monocytes % (Manual) Eosinophils % (Manual) Basophils % (Manual) Seg Neutrophils # Seg Neutrophils # Man Lymphocytes # (Manual) Monocytes # (Manual) Eosinophils # (Manual) Basophils # (Manual) Heparin Anti-Xa Level 0.20 L ABG pH POC ABG pO2 ABG pO2 ABG HCO3 ABG O2 Saturation ABG Base Excess ABG Hemoglobin ABG Oxyhemoglobin Oxyhemoglobin Sodium 149 H Potassium Chloride 108.0 H Carbon Dioxide BUN 28 H Creatinine 0.6 L Glucose 144 H POC Glucose 143 H Lactic Acid Calcium Phosphorus Magnesium AST 98 H ALT 145 H Lactate Dehydrogenase CK-MB (CK-2) C-Reactive Protein NT-Pro-B Natriuret Pep Total Protein 6.0 L Albumin 2.4 L Urine WBC (Auto) 12/08/19 12/08/19 12/08/19 12:08 18:11 23:53 WBC RBC Hgb Hct MCHC RDW Lymph % (Auto) [place] % (Auto) [place] # Eos # Seg Neutrophils % Seg Neuts % (Manual) Lymphocytes % (Manual) Monocytes % (Manual) Eosinophils % (Manual) Basophils % (Manual) Seg Neutrophils # Seg Neutrophils # Man Lymphocytes # (Manual) Monocytes # (Manual) Eosinophils # (Manual) Basophils # (Manual) Heparin Anti-Xa Level ABG pH POC ABG pO2 ABG pO2 ABG HCO3 ABG O2 Saturation ABG Base Excess ABG Hemoglobin ABG Oxyhemoglobin Oxyhemoglobin Sodium Potassium Chloride Carbon Dioxide BUN Creatinine Glucose POC Glucose 172 H 122 H 162 H Lactic Acid Calcium Phosphorus Magnesium AST ALT Lactate Dehydrogenase CK-MB (CK-2) C-Reactive Protein NT-Pro-B Natriuret Pep Total Protein Albumin Urine WBC (Auto) 12/09/19 12/09/19 12/09/19 04:03 04:03 05:53 WBC RBC Hgb 9.1 L Hct 28.9 L MCHC RDW Lymph % (Auto) [place] % (Auto) [place] # Eos # Seg Neutrophils % Seg Neuts % (Manual) Lymphocytes % (Manual) Monocytes % (Manual) Eosinophils % (Manual) Basophils % (Manual) Seg Neutrophils # Seg Neutrophils # Man Lymphocytes # (Manual) Monocytes # (Manual) Eosinophils # (Manual) Basophils # (Manual) Heparin Anti-Xa Level 0.15 L ABG pH POC ABG pO2 ABG pO2 ABG HCO3 ABG O2 Saturation ABG Base Excess ABG Hemoglobin ABG Oxyhemoglobin Oxyhemoglobin Sodium Potassium Chloride Carbon Dioxide BUN Creatinine Glucose POC Glucose 124 H Lactic Acid Calcium Phosphorus Magnesium AST ALT Lactate Dehydrogenase CK-MB (CK-2) C-Reactive Protein NT-Pro-B Natriuret Pep Total Protein Albumin Urine WBC (Auto) 12/09/19 12/09/19 12/10/19 09:43 12:41 00:13 WBC RBC Hgb Hct MCHC RDW Lymph % (Auto) [place] % (Auto) [place] # Eos # Seg Neutrophils % Seg Neuts % (Manual) Lymphocytes % (Manual) Monocytes % (Manual) Eosinophils % (Manual) Basophils % (Manual) Seg Neutrophils # Seg Neutrophils # Man Lymphocytes # (Manual) Monocytes # (Manual) Eosinophils # (Manual) Basophils # (Manual) Heparin Anti-Xa Level ABG pH POC ABG pO2 ABG pO2 ABG HCO3 ABG O2 Saturation ABG Base Excess ABG Hemoglobin ABG Oxyhemoglobin Oxyhemoglobin Sodium Potassium Chloride Carbon Dioxide BUN 25 H Creatinine 0.6 L Glucose 131 H POC Glucose 109 H 120 H Lactic Acid Calcium Phosphorus Magnesium AST ALT Lactate Dehydrogenase CK-MB (CK-2) C-Reactive Protein NT-Pro-B Natriuret Pep Total Protein Albumin Urine WBC (Auto) 12/10/19 12/10/19 12/10/19 04:14 04:14 12:00 WBC 13.3 H RBC 3.34 L Hgb 9.6 L Hct 30.4 L MCHC RDW 15.4 H Lymph % (Auto) [place] % (Auto) [place] # Eos # Seg Neutrophils % Seg Neuts % (Manual) 75.0 H Lymphocytes % (Manual) 13.0 L Monocytes % (Manual) 8.0 H Eosinophils % (Manual) Basophils % (Manual) 2.0 H Seg Neutrophils # Seg Neutrophils # Man 10.0 H Lymphocytes # (Manual) Monocytes # (Manual) 1.1 H Eosinophils # (Manual) Basophils # (Manual) 0.3 H Heparin Anti-Xa Level ABG pH POC ABG pO2 ABG pO2 ABG HCO3 ABG O2 Saturation ABG Base Excess ABG Hemoglobin ABG Oxyhemoglobin Oxyhemoglobin Sodium 147 H Potassium Chloride 108.3 H Carbon Dioxide BUN 21 H Creatinine 0.6 L Glucose 104 H POC Glucose 133 H Lactic Acid Calcium Phosphorus Magnesium AST ALT Lactate Dehydrogenase CK-MB (CK-2) C-Reactive Protein NT-Pro-B Natriuret Pep Total Protein Albumin Urine WBC (Auto) 12/10/19 12/10/19 12/11/19 18:44 21:20 00:08 WBC 14.9 H RBC 3.36 L Hgb 9.6 L Hct 30.5 L MCHC RDW 15.4 H Lymph % (Auto) [place] % (Auto) [place] # Eos # Seg Neutrophils % Seg Neuts % (Manual) Lymphocytes % (Manual) Monocytes % (Manual) Eosinophils % (Manual) Basophils % (Manual) Seg Neutrophils # Seg Neutrophils # Man Lymphocytes # (Manual) Monocytes # (Manual) Eosinophils # (Manual) Basophils # (Manual) Heparin Anti-Xa Level ABG pH POC ABG pO2 ABG pO2 ABG HCO3 ABG O2 Saturation ABG Base Excess ABG Hemoglobin ABG Oxyhemoglobin Oxyhemoglobin Sodium Potassium Chloride Carbon Dioxide BUN Creatinine Glucose POC Glucose 119 H 134 H Lactic Acid Calcium Phosphorus Magnesium AST ALT Lactate Dehydrogenase CK-MB (CK-2) C-Reactive Protein NT-Pro-B Natriuret Pep Total Protein Albumin Urine WBC (Auto) 12/11/19 12/11/19 12/11/19 03:54 07:28 08:36 WBC 11.9 H RBC 3.25 L Hgb 9.6 L Hct 29.2 L MCHC RDW 15.7 H Lymph % (Auto) [place] % (Auto) [place] # Eos # Seg Neutrophils % Seg Neuts % (Manual) Lymphocytes % (Manual) Monocytes % (Manual) Eosinophils % (Manual) Basophils % (Manual) Seg Neutrophils # Seg Neutrophils # Man Lymphocytes # (Manual) Monocytes # (Manual) Eosinophils # (Manual) Basophils # (Manual) Heparin Anti-Xa Level 0.10 L 0.16 L ABG pH POC ABG pO2 ABG pO2 ABG HCO3 ABG O2 Saturation ABG Base Excess ABG Hemoglobin ABG Oxyhemoglobin Oxyhemoglobin Sodium Potassium Chloride Carbon Dioxide BUN Creatinine Glucose POC Glucose Lactic Acid Calcium Phosphorus Magnesium AST ALT Lactate Dehydrogenase CK-MB (CK-2) C-Reactive Protein NT-Pro-B Natriuret Pep Total Protein Albumin Urine WBC (Auto) 12/11/19 12/11/19 12/11/19 08:36 11:45 17:15 WBC RBC Hgb Hct MCHC RDW Lymph % (Auto) [place] % (Auto) [place] # Eos # Seg Neutrophils % Seg Neuts % (Manual) Lymphocytes % (Manual) Monocytes % (Manual) Eosinophils % (Manual) Basophils % (Manual) Seg Neutrophils # Seg Neutrophils # Man Lymphocytes # (Manual) Monocytes # (Manual) Eosinophils # (Manual) Basophils # (Manual) Heparin Anti-Xa Level ABG pH POC ABG pO2 ABG pO2 ABG HCO3 ABG O2 Saturation ABG Base Excess ABG Hemoglobin ABG Oxyhemoglobin Oxyhemoglobin Sodium Potassium Chloride Carbon Dioxide BUN Creatinine 0.5 L Glucose 128 H POC Glucose 136 H 109 H Lactic Acid Calcium Phosphorus Magnesium AST ALT Lactate Dehydrogenase CK-MB (CK-2) C-Reactive Protein NT-Pro-B Natriuret Pep Total Protein Albumin Urine WBC (Auto) 12/12/19 12/12/19 12/12/19 00:03 05:53 05:53 WBC RBC Hgb 8.8 L Hct 27.6 L MCHC RDW Lymph % (Auto) [place] % (Auto) [place] # Eos # Seg Neutrophils % Seg Neuts % (Manual) Lymphocytes % (Manual) Monocytes % (Manual) Eosinophils % (Manual) Basophils % (Manual) Seg Neutrophils # Seg Neutrophils # Man Lymphocytes # (Manual) Monocytes # (Manual) Eosinophils # (Manual) Basophils # (Manual) Heparin Anti-Xa Level 0.22 L ABG pH POC ABG pO2 ABG pO2 ABG HCO3 ABG O2 Saturation ABG Base Excess ABG Hemoglobin ABG Oxyhemoglobin Oxyhemoglobin Sodium Potassium Chloride Carbon Dioxide BUN Creatinine Glucose POC Glucose 116 H Lactic Acid Calcium Phosphorus Magnesium AST ALT Lactate Dehydrogenase CK-MB (CK-2) C-Reactive Protein NT-Pro-B Natriuret Pep Total Protein Albumin Urine WBC (Auto) 12/12/19 12/12/19 12/12/19 09:38 12:18 17:44 WBC RBC Hgb Hct MCHC RDW Lymph % (Auto) [place] % (Auto) [place] # Eos # Seg Neutrophils % Seg Neuts % (Manual) Lymphocytes % (Manual) Monocytes % (Manual) Eosinophils % (Manual) Basophils % (Manual) Seg Neutrophils # Seg Neutrophils # Man Lymphocytes # (Manual) Monocytes # (Manual) Eosinophils # (Manual) Basophils # (Manual) Heparin Anti-Xa Level ABG pH POC ABG pO2 ABG pO2 ABG HCO3 ABG O2 Saturation ABG Base Excess ABG Hemoglobin ABG Oxyhemoglobin Oxyhemoglobin Sodium Potassium Chloride Carbon Dioxide BUN Creatinine Glucose POC Glucose 115 H 146 H 146 H Lactic Acid Calcium Phosphorus Magnesium AST ALT Lactate Dehydrogenase CK-MB (CK-2) C-Reactive Protein NT-Pro-B Natriuret Pep Total Protein Albumin Urine WBC (Auto) 12/12/19 12/13/19 12/13/19 23:33 05:32 05:32 WBC 13.1 H RBC 3.27 L Hgb 9.5 L Hct 29.3 L MCHC RDW 15.6 H Lymph % (Auto) [place] % (Auto) [place] # Eos # Seg Neutrophils % Seg Neuts % (Manual) 74.0 H Lymphocytes % (Manual) 8.0 L Monocytes % (Manual) 9.0 H Eosinophils % (Manual) 5.0 H Basophils % (Manual) Seg Neutrophils # Seg Neutrophils # Man 9.7 H Lymphocytes # (Manual) 1.0 L Monocytes # (Manual) 1.2 H Eosinophils # (Manual) 0.7 H Basophils # (Manual) Heparin Anti-Xa Level 0.20 L ABG pH POC ABG pO2 ABG pO2 ABG HCO3 ABG O2 Saturation ABG Base Excess ABG Hemoglobin ABG Oxyhemoglobin Oxyhemoglobin Sodium Potassium Chloride Carbon Dioxide BUN Creatinine Glucose POC Glucose 126 H Lactic Acid Calcium Phosphorus Magnesium AST ALT Lactate Dehydrogenase CK-MB (CK-2) C-Reactive Protein NT-Pro-B Natriuret Pep Total Protein Albumin Urine WBC (Auto) 12/13/19 12/13/19 12/13/19 05:32 05:46 11:57 WBC RBC Hgb Hct MCHC RDW Lymph % (Auto) [place] % (Auto) [place] # Eos # Seg Neutrophils % Seg Neuts % (Manual) Lymphocytes % (Manual) Monocytes % (Manual) Eosinophils % (Manual) Basophils % (Manual) Seg Neutrophils # Seg Neutrophils # Man Lymphocytes # (Manual) Monocytes # (Manual) Eosinophils # (Manual) Basophils # (Manual) Heparin Anti-Xa Level ABG pH POC ABG pO2 ABG pO2 ABG HCO3 ABG O2 Saturation ABG Base Excess ABG Hemoglobin ABG Oxyhemoglobin Oxyhemoglobin Sodium Potassium Chloride Carbon Dioxide 31 H BUN Creatinine 0.6 L Glucose 114 H POC Glucose 118 H 133 H Lactic Acid Calcium Phosphorus Magnesium AST ALT Lactate Dehydrogenase CK-MB (CK-2) C-Reactive Protein NT-Pro-B Natriuret Pep Total Protein Albumin Urine WBC (Auto) 12/13/19 12/13/19 12/14/19 17:44 23:46 05:32 WBC RBC Hgb Hct MCHC RDW Lymph % (Auto) [place] % (Auto) [place] # Eos # Seg Neutrophils % Seg Neuts % (Manual) Lymphocytes % (Manual) Monocytes % (Manual) Eosinophils % (Manual) Basophils % (Manual) Seg Neutrophils # Seg Neutrophils # Man Lymphocytes # (Manual) Monocytes # (Manual) Eosinophils # (Manual) Basophils # (Manual) Heparin Anti-Xa Level ABG pH POC ABG pO2 ABG pO2 ABG HCO3 ABG O2 Saturation ABG Base Excess ABG Hemoglobin ABG Oxyhemoglobin Oxyhemoglobin Sodium Potassium Chloride Carbon Dioxide BUN Creatinine Glucose POC Glucose 161 H 126 H 139 H Lactic Acid Calcium Phosphorus Magnesium AST ALT Lactate Dehydrogenase CK-MB (CK-2) C-Reactive Protein NT-Pro-B Natriuret Pep Total Protein Albumin Urine WBC (Auto) 12/14/19 12/14/19 12/14/19 06:03 06:03 09:37 WBC RBC Hgb 9.6 L Hct 30.4 L MCHC RDW Lymph % (Auto) [place] % (Auto) [place] # Eos # Seg Neutrophils % Seg Neuts % (Manual) Lymphocytes % (Manual) Monocytes % (Manual) Eosinophils % (Manual) Basophils % (Manual) Seg Neutrophils # Seg Neutrophils # Man Lymphocytes # (Manual) Monocytes # (Manual) Eosinophils # (Manual) Basophils # (Manual) Heparin Anti-Xa Level 0.24 L ABG pH POC ABG pO2 ABG pO2 ABG HCO3 ABG O2 Saturation ABG Base Excess ABG Hemoglobin ABG Oxyhemoglobin Oxyhemoglobin Sodium Potassium Chloride Carbon Dioxide BUN Creatinine 0.6 L Glucose 162 H POC Glucose Lactic Acid Calcium Phosphorus Magnesium AST 71 H ALT 118 H Lactate Dehydrogenase CK-MB (CK-2) C-Reactive Protein NT-Pro-B Natriuret Pep Total Protein 6.2 L Albumin 2.3 L Urine WBC (Auto) 12/14/19 12:06 WBC RBC Hgb Hct MCHC RDW Lymph % (Auto) [place] % (Auto) [place] # Eos # Seg Neutrophils % Seg Neuts % (Manual) Lymphocytes % (Manual) Monocytes % (Manual) Eosinophils % (Manual) Basophils % (Manual) Seg Neutrophils # Seg Neutrophils # Man Lymphocytes # (Manual) Monocytes # (Manual) Eosinophils # (Manual) Basophils # (Manual) Heparin Anti-Xa Level ABG pH POC ABG pO2 ABG pO2 ABG HCO3 ABG O2 Saturation ABG Base Excess ABG Hemoglobin ABG Oxyhemoglobin Oxyhemoglobin Sodium Potassium Chloride Carbon Dioxide BUN Creatinine Glucose POC Glucose 147 H Lactic Acid Calcium Phosphorus Magnesium AST ALT Lactate Dehydrogenase CK-MB (CK-2) C-Reactive Protein NT-Pro-B Natriuret Pep Total Protein Albumin Urine WBC (Auto) Allied health notes reviewed: nursing
[2019-12-14] MEDS: LORazepam 2 MG/ML VIAL IV PRN (16:47)
--- NOTE | 2019-12-14 16:47 | Progress Note ---
Assessment and Plan -Acute LLL PE -Acute RLE DVT -Persistent fevers; secondary to sepsis and acute PE/DVT -Severe sepsis; secondary to bilateral pneumonia, persistent fevers -Acute hypoxemic respiratory failure, on vent unable to wean -Bilateral pneumonia, community acquired, -Aspiration Pneumonia -Sustained SVT, on amiodarone -Acute on chronic systolic congestive heart failure -History of cerebrovascular accident. -Tobacco use disorder -Alcohol abuse with DT -Acute chronic obstructive pulmonary disease exacerbation. -Hypertension and hypertensive urgency at presentation. -History of arthritis. -Paroxysmal atrial fibrillation -Leukocytosis with possible sepsis. -Lactic acidosis. -Bleeding from ET tube -Oropharyngeal dysphagia -S/P Knee surgery -History of peptic Ulcer Surgery -DVT prophylaxis COVID-19 test; 11/24/2019; negative 11/26/2019; negative Plan Continue ventilatory support, Wean as tolerated and extubate., Pulmonary critical care following Completed ceftriaxone and azithromycin for total 5 days per ID ID now started cefepime and Vanco Continue anti-failure medications, cardiology following cont Steroids, Continue diuresis as needed Aspiration precautions Continue amiodarone and metoprolol for suppression of paroxysmal atrial fibrillation. Anticoagulation currently is with intravenous heparin - was brefly on hold for bleeding from ET tube DVT/GI prophy Heparin/Protonix Plan of care reviewed with the patient's nurse Closely monitor the patient and adjust management as needed The high probability of a clinically significant, sudden or life threatening deterioration of the [Respiratory, cardiovascular & neurological] system(s) required my full and direct attention, intervention and personal management. The aggregate critical care time was [33] minutes without overlap. Time includes spent on [x] Data Review and interpretation [x] Patient assessment and monitoring of vital signs [x] Documentation [x] Medication orders and management Brief History Patient is a 64-year-old male with known history of hypertension, COPD, history of coronary artery disease, CHF with ejection fraction of 20 to 25% in August 2018 presenting to the emergency room via EMS complaining of shortness of breath. Patient was found to be hypoxic and in respiratory distress. Patient was placed on CPAP in route to the hospital. Oxygen saturation was said to be 88%. Started on Solu-Medrol, Lasix and magnesium in ED, patient was also found to be lethargic with an oxygen saturation of about 91% on CPAP. He was subsequently intubated. Work-up in the emergency room including chest x-ray reveals bilateral pneumonia. He had an elevated white count of 14 and also had an elevated BNP. Patient to be admitted to the ICU and placed on empiric IV antibiotics for pneumonia. He will also be tested positive for COVID-19 and placed on isolation precautions. Rmains intubated on ventilatory support, sputum cultures positive for Pseudomonas, ID changed antibiotics to cefepime and Vanco. 11/25: Leukocytosis improving. Continue current management anticipate extubation possible today. 11/26. Still intubated. Failed SBT yesterday. Repeat COVID-19 test is negative. 11/27. CT head ordered for possible neuro status change is negative. More responsive as the day progressed as per RN. Chest xray today shows interval improvement. He is still on antibiotics - will complete regimen today. 11/28: Considering difficult extubation and severe cardiomyopathy, will obtain cardiology consult. Aspiration precautions, tube feeds held, continue antibiotics. 11/29: Still with intermittent fever but improving imaging, continue diuresis. 11/30; Extremely agitated when placed on PSV- SVT, hypertension. Patiet acknowledged that he drinks. IV Ativan given, CIWA protocol initiated. 12 lead ordered showed SVT, one dose of amiodarone ordered. continue to follow up cardiology recommendation 12/01: Patient remains on mechanical ventilation, getting SBT trial. Remains in SVT, started on amiodarone drip by cardiology. 12/02; patient is on mechanical ventilation and on spontaneous breathing trial. Cardiology started the patient on PO amiodarone. Patient is on cefepime. 12/03: patient is on mechanical ventilation. Cardiology started the patient on PO amiodarone for SVT. Patient is on cefepime, no fever overnight. 12/04: Patient is sedated and on mechanical ventilation. Patient had fever yesterday afternoon 102.3, ID changed his cefepime to meropenem. Heart rate is controlled, cardiology is following. Patient has paroxysmal atrial fibrillation and on amiodarone and metoprolol, subcu heparin for anticoagulation and will need oral anticoagulation once stable. 12/05: Sputum cultures positive for Pseudomonas, ID following 12/06; patient is febrile T-max 24 hours 102 F ,ID change antibiotics to cefepime and Vancomycin 12/07: resumed care. Na 149 today, start on 03/26 NS. cont current care 12/08: remains in a stable sinus rhythm and stable blood pressure, continue s upportive care. wean off vent as tolerated. persistent fever - ordered CTA chest 12/09: noted bloody discharges from ET tube last night. CTA and LE venous doppler positive for acute PE and DVT. resume heparin drip, consult vascular for possible EKOS/ IVC filter. monitor h/h. cont SBT trial, wean off vent as tolerated. called but no answer 12/10: cont heparin drip for acute PE and DVT, follow vascular recommendation. monitor h/h, wean off vent as tolerated 12/11: o/n had bleeding from ET tube, cont to monitor h/h. vascular recommending medical Mx. called ; Nicolle Araiza [phone]. 12/12: H&H remained stable, patient on heparin drip. Discussed with yesterday. Discussed with critical care attending. Patient not tolerating SBT trial. Continue to wean off from vent as tolerated, follow clinically. Tolerating tube feeding 12/13: Continue heparin drip, wean off from vent as tolerated. Discussed with pulmonary attending if no improvement by the end of 3 weeks of intubation patient may need trach and PEG. Continue to provide supportive care, follow CBC and BMP. Subjective Date of service: 12/14/19 Principal diagnosis: Ac hypoxemic resp failure; Pneumonia; PUI COVID-19; CHF; COPD; HTN Interval history: Patient seen and examined Patient intubated on mechanical ventilation Discussed with RN at the bedside H/H STABLE, patient remains on heparin drip Objective - Exam Narrative Exam: General appearance: Present: well-nourished, other (Intubated), opens eyes to names and follows minor command - EENT Eyes: Present: PERRL, EOM intact. Absent: scleral icterus ENT: clear oral mucosa, dentition normal - Neck Neck: Present: supple, normal ROM - Respiratory Respiratory effort: normal, mechanical ventilation Respiratory: bilateral: rales - Cardiovascular Rhythm: regular Heart Sounds: Present: S1 & S2, tachycardic. Absent: gallop, systolic murmur, diastolic murmur, rub - Extremities Extremities: no ischemia, pulses intact, pulses symmetrical, No edema, Full ROM Peripheral Pulses: within normal limits - Abdominal General gastrointestinal: Present: soft, non-tender, non-distended, normal bowel sounds. Absent: mass - Integumentary Integumentary: Present: clear, warm, dry. Absent: rash - Musculoskeletal Musculoskeletal: no joint swelling - Psychiatric Psychiatric: sedated Neurology: no focal deficits - Constitutional Vitals: Vital Signs - 12hr 12/14/19 12/14/19 12/14/19 05:00 05:30 06:00 Temperature Pulse Rate 76 79 84 Pulse Rate [ From Monitor] Respiratory 10 L 9 L 9 L Rate Respiratory Rate [Chest] Blood Pressure 116/68 106/59 106/59 O2 Sat by Pulse 98 97 95 Oximetry 12/14/19 12/14/19 12/14/19 06:30 06:47 07:00 Temperature Pulse Rate 99 H 81 81 Pulse Rate [ From Monitor] Respiratory 18 10 L Rate Respiratory Rate [Chest] Blood Pressure 123/70 123/70 123/70 O2 Sat by Pulse 99 97 Oximetry 12/14/19 12/14/19 12/14/19 07:30 07:53 08:00 Temperature 98.8 F Pulse Rate 72 90 73 Pulse Rate [ 83 From Monitor] Respiratory 10 L 20 14 Rate Respiratory Rate [Chest] Blood Pressure 123/70 119/67 119/67 O2 Sat by Pulse 99 96 97 Oximetry 12/14/19 12/14/19 12/14/19 08:30 08:36 09:00 Temperature Pulse Rate 118 H 107 H 91 H Pulse Rate [ From Monitor] Respiratory 21 17 Rate Respiratory Rate [Chest] Blood Pressure 113/75 113/75 113/75 O2 Sat by Pulse 92 93 96 Oximetry 12/14/19 12/14/19 12/14/19 09:30 10:00 10:30 Temperature Pulse Rate 84 81 76 Pulse Rate [ From Monitor] Respiratory 13 13 12 Rate Respiratory Rate [Chest] Blood Pressure 121/75 121/75 112/68 O2 Sat by Pulse 99 99 99 Oximetry 12/14/19 12/14/19 12/14/19 11:00 11:25 11:30 Temperature Pulse Rate 73 98 H 86 Pulse Rate [ From Monitor] Respiratory 13 12 Rate Respiratory Rate [Chest] Blood Pressure 112/68 101/67 101/67 O2 Sat by Pulse 100 100 99 Oximetry 12/14/19 12/14/19 12/14/19 12:00 12:30 13:00 Temperature 98 F Pulse Rate 77 75 88 Pulse Rate [ 82 From Monitor] Respiratory 20 14 17 Rate Respiratory Rate [Chest] Blood Pressure 101/67 128/83 128/83 O2 Sat by Pulse 96 98 100 Oximetry 12/14/19 12/14/19 12/14/19 13:30 14:00 14:28 Temperature Pulse Rate 84 80 75 Pulse Rate [ From Monitor] Respiratory 19 19 Rate Respiratory Rate [Chest] Blood Pressure 124/94 124/94 122/78 O2 Sat by Pulse 99 96 Oximetry 12/14/19 12/14/19 12/14/19 14:30 15:00 15:30 Temperature Pulse Rate 75 75 71 Pulse Rate [ From Monitor] Respiratory 13 19 12 Rate Respiratory Rate [Chest] Blood Pressure 122/72 122/72 106/66 O2 Sat by Pulse 97 97 98 Oximetry 12/14/19 16:00 Temperature 98.3 F Pulse Rate 76 Pulse Rate [ From Monitor] Respiratory 12 Rate Respiratory 22 Rate [Chest] Blood Pressure 106/66 O2 Sat by Pulse 98 Oximetry - Labs CBC & Chem 7: 12/15/19 05:29 12/15/19 05:29 Labs: Abnormal lab results 12/13/19 12/13/19 12/14/19 Range/Units 17:44 23:46 05:32 Hgb (11.8-15.2) gm/dl Hct (35.5-45.6) % Heparin Anti-Xa Level (0.3-0.7) U.I./ml Creatinine (0.8-1.3) mg/dL Glucose (75-100) mg/dL POC Glucose 161 H 126 H 139 H (70-105) AST (5-40) units/L ALT (7-56) units/L Total Protein (6.3-8.2) g/dL Albumin (3.9-5) g/dL 12/14/19 12/14/19 12/14/19 Range/Units 06:03 06:03 09:37 Hgb 9.6 L (11.8-15.2) gm/dl Hct 30.4 L (35.5-45.6) % Heparin Anti-Xa Level 0.24 L (0.3-0.7) U.I./ml Creatinine 0.6 L (0.8-1.3) mg/dL Glucose 162 H (75-100) mg/dL POC Glucose (70-105) AST 71 H (5-40) units/L ALT 118 H (7-56) units/L Total Protein 6.2 L (6.3-8.2) g/dL Albumin 2.3 L (3.9-5) g/dL 12/14/19 Range/Units 12:06 Hgb (11.8-15.2) gm/dl Hct (35.5-45.6) % Heparin Anti-Xa Level (0.3-0.7) U.I./ml Creatinine (0.8-1.3) mg/dL Glucose (75-100) mg/dL POC Glucose 147 H (70-105) AST (5-40) units/L ALT (7-56) units/L Total Protein (6.3-8.2) g/dL Albumin (3.9-5) g/dL HEART Score - HEART Score Troponin: Troponin T < 0.010 ng/mL (0.00-0.029) 11/24/19 02:53
[2019-12-14] MEDS: QUEtiapine 100 MG TAB PO SCH (22:44)
[2019-12-14] MEDS: POLYETHYLENE GLYCOL 3350 17 GM POWDER PO SCH (22:45)
--- NOTE | 2019-12-14 22:53 | XRay Report ---
ABDOMEN 2 VIEW(S) INDICATION / CLINICAL INFORMATION: Vomiting. COMPARISON: 12/06/2019 FINDINGS: TUBES / LINES: NG tube again has tip in body of stomach. BOWEL GAS PATTERN: Nonobstructive bowel gas pattern with moderate constipation. FREE AIR / EXTRALUMINAL GAS: None seen. ADDITIONAL FINDINGS: No significant additional findings. IMPRESSION: 1. No significant abnormality. Signer Name: Ankit Saldaña MD Signed: 12/14/2019 10:49 PM Workstation Name: [id number]
[2019-12-15] MEDS: INSULIN LISPRO 100 UNIT/ML VIAL 3 mL SUB-Q SCH ×4 (01:00→18:37)
[2019-12-15] MEDS: fentaNYL DRIP Premix 2,000 MCG/100 ML BAG IV SCH ×3 (04:30→20:17)
[2019-12-15] MEDS: HEPARIN/ 0.45% NACL DRIP 25,000 UNIT/500 ML BAG IV SCH ×2 (05:30→20:18)
[2019-12-15] MEDS: CEFEPIME/NS 2 GM/100 ML 2 GM/100 ML BAG IV SCH ×3 (05:35→21:15)
[2019-12-15] MEDS: METOPROLOL TARTRATE 50 MG TAB PO SCH ×3 (05:37→21:14)
[2019-12-15 05:52] LABS: Hematocrit 28.7 % (35.5-45.6); Hemoglobin 9.1 gm/dl (11.8-15.2); Mean Corpuscular HGB Conc 32 % (32-34); Mean Corpuscular Volume 90 fl (84-94); Platelet Count 310 K/mm3 (140-440); Red Blood Count 3.19 M/mm3 (3.65-5.03)
[2019-12-15 06:09] LABS: Blood Urea Nitrogen 17 mg/dL (9-20); Calcium 9.5 mg/dL (8.4-10.2); Hemolysis Index 1
[2019-12-15 06:10] LABS: BUN/Creatinine Ratio 28
[2019-12-15] MEDS: AMIODARONE 200 MG TAB PO SCH ×2 (09:51→21:14)
[2019-12-15] MEDS: QUEtiapine 25 MG TAB PO SCH (09:51)
[2019-12-15] MEDS: FAMOTIDINE 20 MG TAB PO SCH ×2 (09:51→21:13)
[2019-12-15] MEDS: DOCUSATE SODIUM 100 MG/10 ML ORAL LIQD FEEDTUBE SCH ×2 (09:51→21:13)
[2019-12-15] MEDS ORDERED: MAGNESIUM CITRATE 300 ML ORAL LIQD PO ONE (10:00)
--- NOTE | 2019-12-15 10:48 | Progress Note ---
Assessment and Plan Cultures: Blood culture 12/02/2019 negative Blood culture 11/24/2019 negative Urine culture 11/24/2019 negative COVID-19 negative x2 12/04/2019 resp culture: PsA 12/06/2019 blood cultures: No growth today A/P: 64-year-old male past medical history hypertension, COPD, CAD, CHF with reduced ejection fraction admitted with acute hypoxic respiratory failure likely secondary to pneumonia #Sepsis: With persistent fever 100, likely due to PE/DVT. Procalcitonin improving, from 1.5-->0.6. #Acute hypoxemic respiratory failure: Likely secondary to pneumonia/PE, COVID-19 testing negative x 2. Remains intubated, on CPAP trial #Bilateral pneumonia: COVID-19 negative twice. Culture growing Pseudomonas, pansensitive. Repeat chest x-ray with persistent right base opacity. CT shows PE. #CHF: per primary team #COPD: per pulmonary #Elevated LFTs: worsening ? sepsis. US unremarkable GB #PE/right DVT: on heparin gtt #Urinary retention: Overnight patient did not void, bladder scan showed 700 cc, Hoffman placed 12/15/2019. Recs: -Stop cefepime IV for now - day 10 of 10 -Monitor LFTs -PE/DVT per primary team -Monitor off antibiotics will follow Patsy Dominique MD [facility] ([facility]) Office [phone] Subjective Date of service: 12/15/19 Principal diagnosis: Ac hypoxemic resp failure; Pneumonia; PUI COVID-19; CHF; COPD; HTN Interval history: Remains intubated, on the ventilator, no fever in 24 hours Objective - Exam Narrative Exam: Constitutional: Alert intubated Head, Ears, Nose: Normocephalic, atraumatic. External ears, nose normal Oral: ETT in place, OG tube in place Eyes: Conjunctivae/corneas clear. No icterus. No ptosis. Neck: Supple, no meningeal signs Cardiovascular: RRR Respiratory: diminished GI: Soft, non-tender; bowel sounds normal. No peritoneal signs Musculoskeletal: Left hand swelling left arm with swelling Skin: No rash or abscess Hem/Lymphatic: No palpable cervical or supraclavicular nodes. No lymphangitis Psych: Alert Neurological: Alert Hoffman in place - Constitutional Vitals: Vital Signs Temp Pulse Resp BP Pulse Ox 98 F 80 12 121/78 98 12/15/19 08:00 12/15/19 08:55 12/15/19 08:00 12/15/19 08:55 12/15/19 08:55 Temperature -Last 24 Hours Temperature 98 F Temperature 98.5 F Temperature 97.9 F Temperature 98.4 F - Labs CBC & Chem 7: 12/15/19 05:29 12/15/19 05:29 Labs: Abnormal lab results 12/14/19 12/14/19 12/15/19 Range/Units 12:06 18:18 00:19 WBC (4.5-11.0) K/mm3 RBC (3.65-5.03) M/mm3 Hgb (11.8-15.2) gm/dl Hct (35.5-45.6) % RDW (13.2-15.2) % Heparin Anti-Xa Level (0.3-0.7) U.I./ml Creatinine (0.8-1.3) mg/dL Glucose (75-100) mg/dL POC Glucose 147 H 166 H 123 H (70-105) 12/15/19 12/15/19 12/15/19 Range/Units 05:28 05:29 05:29 WBC 14.9 H (4.5-11.0) K/mm3 RBC 3.19 L (3.65-5.03) M/mm3 Hgb 9.1 L (11.8-15.2) gm/dl Hct 28.7 L (35.5-45.6) % RDW 16.0 H (13.2-15.2) % Heparin Anti-Xa Level 0.19 L (0.3-0.7) U.I./ml Creatinine 0.6 L (0.8-1.3) mg/dL Glucose 110 H (75-100) mg/dL POC Glucose (70-105) 12/15/19 Range/Units 05:53 WBC (4.5-11.0) K/mm3 RBC (3.65-5.03) M/mm3 Hgb (11.8-15.2) gm/dl Hct (35.5-45.6) % RDW (13.2-15.2) % Heparin Anti-Xa Level (0.3-0.7) U.I./ml Creatinine (0.8-1.3) mg/dL Glucose (75-100) mg/dL POC Glucose 119 H (70-105)
--- NOTE | 2019-12-15 10:58 | Progress Note ---
Assessment and Plan Acute hypoxemic respiratory failure Bilateral pneumonia, community acquired. Acute congestive heart failure exacerbation. History of cerebrovascular accident. Acute chronic obstructive pulmonary disease exacerbation. Hypertension and hypertensive urgency at presentation. History of arthritis. Oropharyngeal dysphagia Right Lext DVT Pulmonary embolism Heparin infusion, while monitoring for bleeding SBTs as tolerated Bowel regimen Gentle intermittent diuresis, IV lasix ordered for today-conservative fluid management Increase Seroquel to 200 mg qhs Monitor off antibiotics, trend WCC and temperature curve If not liberated from MVS in by the end of the week, will need trach/PEG placement - continue to monitor renal function, hemodynamics and electrolyte profile - continue to wean oxygen for O2 sats > 90% - continue bronchodilators with pulmonary hygiene per RT - VAP bundle addressed (Aspiration precautions, HOB >40) - continue to wean per pulmonary driven protocols - continue prn analgesia per CPOT score - follow clinically re: fever curves / trend WBC - Avoid delirium (no benzodiazepines if they can be avoided) - Enteral nutrition at goal rate as tolerated - continue accuchecks with glycemic control per SSI for target blood glucose goal of 140-180 mg/dL while critically ill; Avoid hypoglycemia - continue VTE prophylaxis with Heparin therapeutic dosing for PE/DVT - continue stress ulcer prophylaxis with Famotidine BID - continue mobility protocols for pressure ulcer prophylaxis - continue fall precautions - continue wound care management per RN / WCT - Supportive transfusions as indicated to keep HgB>7g/dL - Continue to monitor neurologic function - Continue chronic home medications as clinically indicated - Continue all supportive care CONDITION: CRITICAL PROGNOSIS: GUARDED CODE STATUS: FULL CODE The high probability of a clinically significant, sudden or life threatening deterioration of the [Respiratory, cardiovascular & neurological] system(s) required my full and direct attention, intervention and personal management. The aggregate critical care time was [33] minutes without overlap. Time includes spent on [x] Data Review and interpretation [x] Patient assessment and monitoring of vital signs [x] Documentation [x] Medication orders and management Subjective Date of service: 12/15/19 Principal diagnosis: Ac hypoxemic resp failure; Pneumonia; PUI COVID-19; CHF; COPD; HTN Interval history: Patient is seen today for: Acute hypoxemic respiratory failure; [place]. Pneumonia (CAP); PUI COVID-19 infection; AE-CHF; AE-COPD; H/O CVA; HTN; PE, DVT Seen and examined at bedside; 24 hour events reviewed; nursing and respiratory care staff consulted; no adverse overnight events reported to me; resting peacefully in bed; ETT in place. No asynchrony, Vomited overnight, KUB showed non obstructive gas pattern Some agitation overnight requiring Ativan. On Cefepime which ends today Vent 500/12/8/40%. On Fentanyl at 2 mcg, heparin infusion, minimal trach bleeding Objective Vital Signs - 12hr 12/14/19 12/14/19 12/15/19 23:00 23:30 00:00 Temperature 97.9 F Pulse Rate 86 80 74 Pulse Rate [ 74 From Monitor] Respiratory 15 12 12 Rate Blood Pressure 112/78 105/71 105/71 O2 Sat by Pulse 98 96 95 Oximetry 12/15/19 12/15/19 12/15/19 00:30 01:00 01:30 Temperature Pulse Rate 74 74 77 Pulse Rate [ From Monitor] Respiratory 12 16 13 Rate Blood Pressure 96/51 96/51 96/61 O2 Sat by Pulse 94 97 96 Oximetry 12/15/19 12/15/19 12/15/19 02:00 02:30 03:00 Temperature Pulse Rate 79 77 74 Pulse Rate [ From Monitor] Respiratory 14 10 L 13 Rate Blood Pressure 96/61 96/61 96/61 O2 Sat by Pulse 85 96 95 Oximetry 12/15/19 12/15/19 12/15/19 03:30 04:00 04:22 Temperature 98.5 F Pulse Rate 71 78 83 Pulse Rate [ 82 From Monitor] Respiratory 13 10 L Rate Blood Pressure 87/61 87/57 85/61 O2 Sat by Pulse 95 96 95 Oximetry 12/15/19 12/15/19 12/15/19 04:30 05:00 05:30 Temperature Pulse Rate 78 72 81 Pulse Rate [ From Monitor] Respiratory 12 11 L 11 L Rate Blood Pressure 87/55 85/61 129/76 O2 Sat by Pulse 96 95 96 Oximetry 12/15/19 12/15/19 12/15/19 05:37 06:00 06:31 Temperature Pulse Rate 78 71 80 Pulse Rate [ From Monitor] Respiratory 12 11 L Rate Blood Pressure 87/55 119/69 129/76 O2 Sat by Pulse 92 99 Oximetry 12/15/19 12/15/19 12/15/19 07:00 07:31 08:00 Temperature 98 F Pulse Rate 80 71 75 Pulse Rate [ 80 From Monitor] Respiratory 13 13 14 Rate Blood Pressure 115/79 115/79 121/78 O2 Sat by Pulse 92 95 96 Oximetry 12/15/19 12/15/19 12/15/19 08:31 08:55 09:00 Temperature Pulse Rate 80 80 85 Pulse Rate [ From Monitor] Respiratory 12 13 Rate Blood Pressure 121/78 121/78 124/81 O2 Sat by Pulse 97 98 Oximetry 12/15/19 12/15/19 12/15/19 09:31 10:00 10:31 Temperature Pulse Rate 80 87 83 Pulse Rate [ From Monitor] Respiratory 16 14 13 Rate Blood Pressure 124/81 133/79 133/79 O2 Sat by Pulse 93 92 92 Oximetry Constitutional: no acute distress, agitated, other (elderly and obese male, normocephalic with mildly increased respiratory effort at rest on MVS) Eyes: non-icteric ENT: oropharynx moist, other (ETT 24 cm JASON) Neck: supple, no JVD Effort: very labored Ascultation: Bilateral: clear, diminished breath sounds, rhonchi (scant; improved RLL air entry also) Percussion: Bilateral: not dull Cardiovascular: irregular rhythm Gastrointestinal: normoactive bowel sounds, soft, non-tender, non-distended Integumentary: normal Extremities: no cyanosis, no edema, pulses normal, no ischemia or petechiae Neurologic: non-focal exam (moves all extremities with extreme agitation), pupils equal and round, motor strength normal and, other (sedated lightly) Psychiatric: mood appropriate, affect normal CBC and BMP: 12/16/19 05:46 12/16/19 05:46 ABG, PT/INR, D-dimer: ABG ABG pH 7.439 (7.320-7.450) 12/02/19 12:58 POC ABG pCO2 45.1 mmHg (32.0-48.0) 12/02/19 12:58 ABG pCO2 43.4 mm Hg 11/30/19 04:56 POC ABG pO2 78.1 mmHg (83-108) L 12/02/19 12:58 ABG pO2 56.3 mm Hg (80.0-90.0) L 11/30/19 04:56 POC ABG HCO3 29.9 12/02/19 12:58 ABG O2 Saturation 91.5 % (95.0-99.0) L 11/30/19 04:56 PT/INR, D-dimer PT 14.0 Sec. (12.2-14.9) 12/10/19 21:20 INR 1.06 (0.87-1.13) 12/10/19 21:20 Abnormal lab findings: Abnormal Labs 11/24/19 11/24/19 11/24/19 02:53 02:53 03:45 WBC 14.3 H RBC Hgb Hct MCHC RDW 17.2 H Lymph % (Auto) [place] % (Auto) [place] # Eos # Seg Neutrophils % Seg Neuts % (Manual) Lymphocytes % (Manual) Monocytes % (Manual) Eosinophils % (Manual) Basophils % (Manual) Seg Neutrophils # Seg Neutrophils # Man 8.3 H Lymphocytes # (Manual) Monocytes # (Manual) 0.9 H Eosinophils # (Manual) Basophils # (Manual) Heparin Anti-Xa Level ABG pH 7.313 L POC ABG pO2 ABG pO2 102.8 H ABG HCO3 ABG O2 Saturation ABG Base Excess -2.9 L ABG Hemoglobin ABG Oxyhemoglobin Oxyhemoglobin 93.9 L Sodium Potassium Chloride Carbon Dioxide BUN Creatinine Glucose 195 H POC Glucose Lactic Acid Calcium Phosphorus Magnesium AST ALT Lactate Dehydrogenase CK-MB (CK-2) 4.3 H C-Reactive Protein NT-Pro-B Natriuret Pep 1181 H Total Protein Albumin Urine WBC (Auto) 11/24/19 11/24/19 11/24/19 04:53 04:53 10:37 WBC RBC Hgb Hct MCHC RDW Lymph % (Auto) [place] % (Auto) [place] # Eos # Seg Neutrophils % Seg Neuts % (Manual) Lymphocytes % (Manual) Monocytes % (Manual) Eosinophils % (Manual) Basophils % (Manual) Seg Neutrophils # Seg Neutrophils # Man Lymphocytes # (Manual) Monocytes # (Manual) Eosinophils # (Manual) Basophils # (Manual) Heparin Anti-Xa Level ABG pH POC ABG pO2 ABG pO2 ABG HCO3 ABG O2 Saturation ABG Base Excess ABG Hemoglobin ABG Oxyhemoglobin Oxyhemoglobin Sodium Potassium Chloride Carbon Dioxide BUN Creatinine Glucose 162 H POC Glucose Lactic Acid 2.40 H* 2.50 H* Calcium Phosphorus Magnesium AST ALT Lactate Dehydrogenase 240 H CK-MB (CK-2) C-Reactive Protein NT-Pro-B Natriuret Pep Total Protein Albumin Urine WBC (Auto) 11/24/19 11/24/19 11/24/19 12:21 14:50 19:54 WBC RBC Hgb Hct MCHC RDW Lymph % (Auto) [place] % (Auto) [place] # Eos # Seg Neutrophils % Seg Neuts % (Manual) Lymphocytes % (Manual) Monocytes % (Manual) Eosinophils % (Manual) Basophils % (Manual) Seg Neutrophils # Seg Neutrophils # Man Lymphocytes # (Manual) Monocytes # (Manual) Eosinophils # (Manual) Basophils # (Manual) Heparin Anti-Xa Level ABG pH POC ABG pO2 ABG pO2 ABG HCO3 ABG O2 Saturation ABG Base Excess ABG Hemoglobin ABG Oxyhemoglobin Oxyhemoglobin Sodium Potassium Chloride Carbon Dioxide BUN Creatinine Glucose POC Glucose 145 H 143 H 124 H Lactic Acid Calcium Phosphorus Magnesium AST ALT Lactate Dehydrogenase CK-MB (CK-2) C-Reactive Protein NT-Pro-B Natriuret Pep Total Protein Albumin Urine WBC (Auto) 11/25/19 11/25/19 11/25/19 00:18 03:18 05:11 WBC 13.7 H RBC Hgb Hct MCHC RDW 17.1 H Lymph % (Auto) 10.8 L [place] % (Auto) 8.7 H [place] # 1.2 H Eos # Seg Neutrophils % 80.2 H Seg Neuts % (Manual) Lymphocytes % (Manual) Monocytes % (Manual) Eosinophils % (Manual) Basophils % (Manual) Seg Neutrophils # 11.0 H Seg Neutrophils # Man Lymphocytes # (Manual) Monocytes # (Manual) Eosinophils # (Manual) Basophils # (Manual) Heparin Anti-Xa Level ABG pH 7.333 L POC ABG pO2 ABG pO2 61.2 L ABG HCO3 ABG O2 Saturation 90.2 L ABG Base Excess ABG Hemoglobin 13.7 L ABG Oxyhemoglobin Oxyhemoglobin 88.2 L Sodium Potassium Chloride Carbon Dioxide BUN Creatinine Glucose POC Glucose 109 H Lactic Acid Calcium Phosphorus Magnesium AST ALT Lactate Dehydrogenase CK-MB (CK-2) C-Reactive Protein NT-Pro-B Natriuret Pep Total Protein Albumin Urine WBC (Auto) 11/25/19 11/25/19 11/26/19 05:11 11:40 03:12 WBC RBC Hgb Hct MCHC RDW Lymph % (Auto) [place] % (Auto) [place] # Eos # Seg Neutrophils % Seg Neuts % (Manual) Lymphocytes % (Manual) Monocytes % (Manual) Eosinophils % (Manual) Basophils % (Manual) Seg Neutrophils # Seg Neutrophils # Man Lymphocytes # (Manual) Monocytes # (Manual) Eosinophils # (Manual) Basophils # (Manual) Heparin Anti-Xa Level ABG pH POC ABG pO2 ABG pO2 155.1 H ABG HCO3 27.8 H ABG O2 Saturation ABG Base Excess ABG Hemoglobin 12.2 L ABG Oxyhemoglobin Oxyhemoglobin Sodium Potassium Chloride Carbon Dioxide BUN 23 H Creatinine Glucose 110 H POC Glucose 108 H Lactic Acid Calcium Phosphorus Magnesium AST ALT Lactate Dehydrogenase CK-MB (CK-2) C-Reactive Protein NT-Pro-B Natriuret Pep Total Protein Albumin Urine WBC (Auto) 11/26/19 11/26/19 11/26/19 06:17 10:43 10:43 WBC 11.4 H RBC Hgb Hct MCHC RDW 17.1 H Lymph % (Auto) [place] % (Auto) [place] # Eos # Seg Neutrophils % Seg Neuts % (Manual) Lymphocytes % (Manual) Monocytes % (Manual) Eosinophils % (Manual) Basophils % (Manual) Seg Neutrophils # Seg Neutrophils # Man Lymphocytes # (Manual) Monocytes # (Manual) Eosinophils # (Manual) Basophils # (Manual) Heparin Anti-Xa Level ABG pH POC ABG pO2 ABG pO2 ABG HCO3 ABG O2 Saturation ABG Base Excess ABG Hemoglobin ABG Oxyhemoglobin Oxyhemoglobin Sodium Potassium Chloride Carbon Dioxide BUN 29 H Creatinine Glucose POC Glucose 107 H Lactic Acid Calcium Phosphorus Magnesium AST ALT Lactate Dehydrogenase CK-MB (CK-2) C-Reactive Protein NT-Pro-B Natriuret Pep Total Protein Albumin Urine WBC (Auto) 11/26/19 11/27/19 11/27/19 17:11 01:53 04:11 WBC RBC Hgb Hct MCHC RDW Lymph % (Auto) [place] % (Auto) [place] # Eos # Seg Neutrophils % Seg Neuts % (Manual) Lymphocytes % (Manual) Monocytes % (Manual) Eosinophils % (Manual) Basophils % (Manual) Seg Neutrophils # Seg Neutrophils # Man Lymphocytes # (Manual) Monocytes # (Manual) Eosinophils # (Manual) Basophils # (Manual) Heparin Anti-Xa Level ABG pH POC ABG pO2 ABG pO2 ABG HCO3 29.2 H ABG O2 Saturation ABG Base Excess 3.4 H ABG Hemoglobin 13.3 L ABG Oxyhemoglobin Oxyhemoglobin 94.5 L Sodium Potassium Chloride Carbon Dioxide BUN Creatinine Glucose POC Glucose 113 H 108 H Lactic Acid Calcium Phosphorus Magnesium AST ALT Lactate Dehydrogenase CK-MB (CK-2) C-Reactive Protein NT-Pro-B Natriuret Pep Total Protein Albumin Urine WBC (Auto) 11/27/19 11/28/19 11/28/19 05:27 05:00 05:25 WBC RBC Hgb Hct MCHC RDW Lymph % (Auto) [place] % (Auto) [place] # Eos # Seg Neutrophils % Seg Neuts % (Manual) Lymphocytes % (Manual) Monocytes % (Manual) Eosinophils % (Manual) Basophils % (Manual) Seg Neutrophils # Seg Neutrophils # Man Lymphocytes # (Manual) Monocytes # (Manual) Eosinophils # (Manual) Basophils # (Manual) Heparin Anti-Xa Level ABG pH POC ABG pO2 68.1 L ABG pO2 ABG HCO3 ABG O2 Saturation ABG Base Excess ABG Hemoglobin ABG Oxyhemoglobin 91.2 L Oxyhemoglobin Sodium Potassium Chloride Carbon Dioxide BUN Creatinine Glucose POC Glucose 111 H 110 H Lactic Acid Calcium Phosphorus Magnesium AST ALT Lactate Dehydrogenase CK-MB (CK-2) C-Reactive Protein NT-Pro-B Natriuret Pep Total Protein Albumin Urine WBC (Auto) 11/28/19 11/28/19 11/28/19 12:08 13:47 13:47 WBC 11.3 H RBC Hgb Hct MCHC RDW 16.1 H Lymph % (Auto) [place] % (Auto) 9.9 H [place] # 1.1 H Eos # Seg Neutrophils % 71.4 H Seg Neuts % (Manual) Lymphocytes % (Manual) Monocytes % (Manual) Eosinophils % (Manual) Basophils % (Manual) Seg Neutrophils # 8.1 H Seg Neutrophils # Man Lymphocytes # (Manual) Monocytes # (Manual) Eosinophils # (Manual) Basophils # (Manual) Heparin Anti-Xa Level ABG pH POC ABG pO2 ABG pO2 ABG HCO3 ABG O2 Saturation ABG Base Excess ABG Hemoglobin ABG Oxyhemoglobin Oxyhemoglobin Sodium Potassium Chloride Carbon Dioxide BUN 23 H Creatinine Glucose 123 H POC Glucose 112 H Lactic Acid Calcium Phosphorus Magnesium AST ALT Lactate Dehydrogenase CK-MB (CK-2) C-Reactive Protein NT-Pro-B Natriuret Pep Total Protein Albumin 3.7 L Urine WBC (Auto) 11/28/19 11/29/19 11/29/19 17:26 03:55 17:04 WBC RBC Hgb Hct MCHC RDW Lymph % (Auto) [place] % (Auto) [place] # Eos # Seg Neutrophils % Seg Neuts % (Manual) Lymphocytes % (Manual) Monocytes % (Manual) Eosinophils % (Manual) Basophils % (Manual) Seg Neutrophils # Seg Neutrophils # Man Lymphocytes # (Manual) Monocytes # (Manual) Eosinophils # (Manual) Basophils # (Manual) Heparin Anti-Xa Level ABG pH POC ABG pO2 ABG pO2 65.7 L ABG HCO3 28.3 H ABG O2 Saturation 93.9 L ABG Base Excess 3.6 H ABG Hemoglobin 13.3 L ABG Oxyhemoglobin Oxyhemoglobin 91.5 L Sodium Potassium Chloride Carbon Dioxide BUN Creatinine Glucose POC Glucose 123 H 119 H Lactic Acid Calcium Phosphorus Magnesium AST ALT Lactate Dehydrogenase CK-MB (CK-2) C-Reactive Protein NT-Pro-B Natriuret Pep Total Protein Albumin Urine WBC (Auto) 11/30/19 11/30/19 11/30/19 04:17 04:17 04:56 WBC 13.4 H RBC Hgb Hct MCHC RDW 15.6 H Lymph % (Auto) [place] % (Auto) [place] # Eos # Seg Neutrophils % Seg Neuts % (Manual) Lymphocytes % (Manual) Monocytes % (Manual) Eosinophils % (Manual) Basophils % (Manual) Seg Neutrophils # Seg Neutrophils # Man Lymphocytes # (Manual) Monocytes # (Manual) Eosinophils # (Manual) Basophils # (Manual) Heparin Anti-Xa Level ABG pH POC ABG pO2 ABG pO2 56.3 L ABG HCO3 29.3 H ABG O2 Saturation 91.5 L ABG Base Excess 4.7 H ABG Hemoglobin 12.1 L ABG Oxyhemoglobin Oxyhemoglobin 89.2 L Sodium 147 H Potassium Chloride Carbon Dioxide BUN 30 H Creatinine Glucose 124 H POC Glucose Lactic Acid Calcium Phosphorus Magnesium AST ALT Lactate Dehydrogenase CK-MB (CK-2) C-Reactive Protein NT-Pro-B Natriuret Pep Total Protein Albumin 3.8 L Urine WBC (Auto) 11/30/19 11/30/19 11/30/19 05:51 11:54 18:17 WBC RBC Hgb Hct MCHC RDW Lymph % (Auto) [place] % (Auto) [place] # Eos # Seg Neutrophils % Seg Neuts % (Manual) Lymphocytes % (Manual) Monocytes % (Manual) Eosinophils % (Manual) Basophils % (Manual) Seg Neutrophils # Seg Neutrophils # Man Lymphocytes # (Manual) Monocytes # (Manual) Eosinophils # (Manual) Basophils # (Manual) Heparin Anti-Xa Level ABG pH POC ABG pO2 ABG pO2 ABG HCO3 ABG O2 Saturation ABG Base Excess ABG Hemoglobin ABG Oxyhemoglobin Oxyhemoglobin Sodium Potassium Chloride Carbon Dioxide BUN Creatinine Glucose POC Glucose 127 H 115 H 143 H Lactic Acid Calcium Phosphorus Magnesium AST ALT Lactate Dehydrogenase CK-MB (CK-2) C-Reactive Protein NT-Pro-B Natriuret Pep Total Protein Albumin Urine WBC (Auto) 12/01/19 12/01/19 12/01/19 01:18 05:22 12:16 WBC RBC Hgb Hct MCHC RDW Lymph % (Auto) [place] % (Auto) [place] # Eos # Seg Neutrophils % Seg Neuts % (Manual) Lymphocytes % (Manual) Monocytes % (Manual) Eosinophils % (Manual) Basophils % (Manual) Seg Neutrophils # Seg Neutrophils # Man Lymphocytes # (Manual) Monocytes # (Manual) Eosinophils # (Manual) Basophils # (Manual) Heparin Anti-Xa Level ABG pH POC ABG pO2 ABG pO2 ABG HCO3 ABG O2 Saturation ABG Base Excess ABG Hemoglobin ABG Oxyhemoglobin Oxyhemoglobin Sodium Potassium 3.5 L Chloride 107.8 H Carbon Dioxide BUN 37 H Creatinine Glucose 157 H POC Glucose 118 H 148 H Lactic Acid Calcium 8.2 L D Phosphorus Magnesium AST 48 H ALT 60 H Lactate Dehydrogenase 194 H CK-MB (CK-2) C-Reactive Protein 8.50 H NT-Pro-B Natriuret Pep Total Protein 5.5 L Albumin 2.8 L Urine WBC (Auto) 12/01/19 12/02/19 12/02/19 18:04 00:05 05:16 WBC 11.4 H RBC Hgb Hct MCHC RDW 15.9 H Lymph % (Auto) [place] % (Auto) 9.9 H [place] # 1.1 H Eos # Seg Neutrophils % 70.3 H Seg Neuts % (Manual) Lymphocytes % (Manual) Monocytes % (Manual) Eosinophils % (Manual) Basophils % (Manual) Seg Neutrophils # 8.0 H Seg Neutrophils # Man Lymphocytes # (Manual) Monocytes # (Manual) Eosinophils # (Manual) Basophils # (Manual) Heparin Anti-Xa Level ABG pH POC ABG pO2 ABG pO2 ABG HCO3 ABG O2 Saturation ABG Base Excess ABG Hemoglobin ABG Oxyhemoglobin Oxyhemoglobin Sodium Potassium Chloride Carbon Dioxide BUN Creatinine Glucose POC Glucose 143 H 107 H Lactic Acid Calcium Phosphorus Magnesium AST ALT Lactate Dehydrogenase CK-MB (CK-2) C-Reactive Protein NT-Pro-B Natriuret Pep Total Protein Albumin Urine WBC (Auto) 12/02/19 12/02/19 12/02/19 05:16 06:03 11:52 WBC RBC Hgb Hct MCHC RDW Lymph % (Auto) [place] % (Auto) [place] # Eos # Seg Neutrophils % Seg Neuts % (Manual) Lymphocytes % (Manual) Monocytes % (Manual) Eosinophils % (Manual) Basophils % (Manual) Seg Neutrophils # Seg Neutrophils # Man Lymphocytes # (Manual) Monocytes # (Manual) Eosinophils # (Manual) Basophils # (Manual) Heparin Anti-Xa Level ABG pH POC ABG pO2 ABG pO2 ABG HCO3 ABG O2 Saturation ABG Base Excess ABG Hemoglobin ABG Oxyhemoglobin Oxyhemoglobin Sodium 146 H Potassium Chloride Carbon Dioxide BUN 28 H Creatinine Glucose 123 H POC Glucose 110 H 152 H Lactic Acid Calcium Phosphorus Magnesium AST ALT Lactate Dehydrogenase CK-MB (CK-2) C-Reactive Protein NT-Pro-B Natriuret Pep Total Protein Albumin Urine WBC (Auto) 12/02/19 12/02/19 12/02/19 12:58 17:58 23:36 WBC RBC Hgb Hct MCHC RDW Lymph % (Auto) [place] % (Auto) [place] # Eos # Seg Neutrophils % Seg Neuts % (Manual) Lymphocytes % (Manual) Monocytes % (Manual) Eosinophils % (Manual) Basophils % (Manual) Seg Neutrophils # Seg Neutrophils # Man Lymphocytes # (Manual) Monocytes # (Manual) Eosinophils # (Manual) Basophils # (Manual) Heparin Anti-Xa Level ABG pH POC ABG pO2 78.1 L ABG pO2 ABG HCO3 ABG O2 Saturation ABG Base Excess ABG Hemoglobin ABG Oxyhemoglobin Oxyhemoglobin Sodium Potassium Chloride Carbon Dioxide BUN Creatinine Glucose POC Glucose 120 H 123 H Lactic Acid Calcium Phosphorus Magnesium AST ALT Lactate Dehydrogenase CK-MB (CK-2) C-Reactive Protein NT-Pro-B Natriuret Pep Total Protein Albumin Urine WBC (Auto) 12/03/19 12/03/19 12/03/19 06:03 06:14 11:46 WBC RBC Hgb Hct MCHC RDW Lymph % (Auto) [place] % (Auto) [place] # Eos # Seg Neutrophils % Seg Neuts % (Manual) Lymphocytes % (Manual) Monocytes % (Manual) Eosinophils % (Manual) Basophils % (Manual) Seg Neutrophils # Seg Neutrophils # Man Lymphocytes # (Manual) Monocytes # (Manual) Eosinophils # (Manual) Basophils # (Manual) Heparin Anti-Xa Level ABG pH POC ABG pO2 ABG pO2 ABG HCO3 ABG O2 Saturation ABG Base Excess ABG Hemoglobin ABG Oxyhemoglobin Oxyhemoglobin Sodium Potassium Chloride Carbon Dioxide BUN Creatinine Glucose POC Glucose 142 H 130 H Lactic Acid Calcium Phosphorus Magnesium AST ALT Lactate Dehydrogenase CK-MB (CK-2) C-Reactive Protein NT-Pro-B Natriuret Pep Total Protein Albumin Urine WBC (Auto) 8.0 H 12/03/19 12/03/19 12/04/19 15:50 17:39 00:04 WBC RBC Hgb Hct MCHC RDW Lymph % (Auto) [place] % (Auto) [place] # Eos # Seg Neutrophils % Seg Neuts % (Manual) Lymphocytes % (Manual) Monocytes % (Manual) Eosinophils % (Manual) Basophils % (Manual) Seg Neutrophils # Seg Neutrophils # Man Lymphocytes # (Manual) Monocytes # (Manual) Eosinophils # (Manual) Basophils # (Manual) Heparin Anti-Xa Level ABG pH POC ABG pO2 ABG pO2 ABG HCO3 ABG O2 Saturation ABG Base Excess ABG Hemoglobin ABG Oxyhemoglobin Oxyhemoglobin Sodium Potassium Chloride Carbon Dioxide BUN Creatinine Glucose POC Glucose 146 H 133 H Lactic Acid Calcium Phosphorus 2.40 L Magnesium AST ALT Lactate Dehydrogenase CK-MB (CK-2) C-Reactive Protein NT-Pro-B Natriuret Pep Total Protein Albumin Urine WBC (Auto) 12/04/19 12/04/19 12/04/19 03:58 03:58 05:22 WBC 12.5 H RBC Hgb 11.2 L Hct 35.2 L MCHC RDW 16.0 H Lymph % (Auto) [place] % (Auto) 9.6 H [place] # 1.2 H Eos # 0.5 H Seg Neutrophils % Seg Neuts % (Manual) Lymphocytes % (Manual) Monocytes % (Manual) Eosinophils % (Manual) Basophils % (Manual) Seg Neutrophils # 8.6 H Seg Neutrophils # Man Lymphocytes # (Manual) Monocytes # (Manual) Eosinophils # (Manual) Basophils # (Manual) Heparin Anti-Xa Level ABG pH POC ABG pO2 ABG pO2 ABG HCO3 ABG O2 Saturation ABG Base Excess ABG Hemoglobin ABG Oxyhemoglobin Oxyhemoglobin Sodium 146 H Potassium Chloride 108.6 H Carbon Dioxide BUN 30 H Creatinine 0.7 L Glucose 121 H POC Glucose 132 H Lactic Acid Calcium Phosphorus Magnesium AST ALT Lactate Dehydrogenase CK-MB (CK-2) C-Reactive Protein NT-Pro-B Natriuret Pep Total Protein Albumin Urine WBC (Auto) 12/04/19 12/04/19 12/05/19 13:26 18:43 00:19 WBC RBC Hgb Hct MCHC RDW Lymph % (Auto) [place] % (Auto) [place] # Eos # Seg Neutrophils % Seg Neuts % (Manual) Lymphocytes % (Manual) Monocytes % (Manual) Eosinophils % (Manual) Basophils % (Manual) Seg Neutrophils # Seg Neutrophils # Man Lymphocytes # (Manual) Monocytes # (Manual) Eosinophils # (Manual) Basophils # (Manual) Heparin Anti-Xa Level ABG pH POC ABG pO2 ABG pO2 ABG HCO3 ABG O2 Saturation ABG Base Excess ABG Hemoglobin ABG Oxyhemoglobin Oxyhemoglobin Sodium Potassium Chloride Carbon Dioxide BUN Creatinine Glucose POC Glucose 185 H 156 H 150 H Lactic Acid Calcium Phosphorus Magnesium AST ALT Lactate Dehydrogenase CK-MB (CK-2) C-Reactive Protein NT-Pro-B Natriuret Pep Total Protein Albumin Urine WBC (Auto) 12/05/19 12/05/19 12/05/19 03:37 03:37 05:14 WBC 16.3 H RBC Hgb 11.4 L Hct MCHC RDW 15.6 H Lymph % (Auto) 9.9 L [place] % (Auto) 9.7 H [place] # 1.6 H Eos # Seg Neutrophils % 78.0 H Seg Neuts % (Manual) Lymphocytes % (Manual) Monocytes % (Manual) Eosinophils % (Manual) Basophils % (Manual) Seg Neutrophils # 12.7 H Seg Neutrophils # Man Lymphocytes # (Manual) Monocytes # (Manual) Eosinophils # (Manual) Basophils # (Manual) Heparin Anti-Xa Level ABG pH POC ABG pO2 ABG pO2 ABG HCO3 ABG O2 Saturation ABG Base Excess ABG Hemoglobin ABG Oxyhemoglobin Oxyhemoglobin Sodium 146 H Potassium Chloride 107.2 H Carbon Dioxide BUN 27 H Creatinine 0.7 L Glucose 171 H POC Glucose 168 H Lactic Acid Calcium Phosphorus Magnesium AST ALT Lactate Dehydrogenase CK-MB (CK-2) C-Reactive Protein NT-Pro-B Natriuret Pep Total Protein Albumin Urine WBC (Auto) 12/05/19 12/05/19 12/05/19 12:31 18:10 23:58 WBC RBC Hgb Hct MCHC RDW Lymph % (Auto) [place] % (Auto) [place] # Eos # Seg Neutrophils % Seg Neuts % (Manual) Lymphocytes % (Manual) Monocytes % (Manual) Eosinophils % (Manual) Basophils % (Manual) Seg Neutrophils # Seg Neutrophils # Man Lymphocytes # (Manual) Monocytes # (Manual) Eosinophils # (Manual) Basophils # (Manual) Heparin Anti-Xa Level ABG pH POC ABG pO2 ABG pO2 ABG HCO3 ABG O2 Saturation ABG Base Excess ABG Hemoglobin ABG Oxyhemoglobin Oxyhemoglobin Sodium Potassium Chloride Carbon Dioxide BUN Creatinine Glucose POC Glucose 159 H 198 H 115 H Lactic Acid Calcium Phosphorus Magnesium AST ALT Lactate Dehydrogenase CK-MB (CK-2) C-Reactive Protein NT-Pro-B Natriuret Pep Total Protein Albumin Urine WBC (Auto) 12/06/19 12/06/19 12/06/19 05:24 05:24 05:25 WBC 14.9 H RBC Hgb 10.8 L Hct 34.0 L MCHC RDW 15.6 H Lymph % (Auto) 10.7 L [place] % (Auto) 8.3 H [place] # 1.2 H Eos # Seg Neutrophils % 78.7 H Seg Neuts % (Manual) Lymphocytes % (Manual) Monocytes % (Manual) Eosinophils % (Manual) Basophils % (Manual) Seg Neutrophils # 11.7 H Seg Neutrophils # Man Lymphocytes # (Manual) Monocytes # (Manual) Eosinophils # (Manual) Basophils # (Manual) Heparin Anti-Xa Level ABG pH POC ABG pO2 ABG pO2 ABG HCO3 ABG O2 Saturation ABG Base Excess ABG Hemoglobin ABG Oxyhemoglobin Oxyhemoglobin Sodium 148 H Potassium 5.1 H Chloride 107.6 H Carbon Dioxide BUN 27 H Creatinine 0.7 L Glucose 155 H POC Glucose 157 H Lactic Acid Calcium Phosphorus Magnesium AST ALT Lactate Dehydrogenase CK-MB (CK-2) C-Reactive Protein NT-Pro-B Natriuret Pep Total Protein Albumin Urine WBC (Auto) 12/07/19 12/07/19 12/07/19 00:13 05:34 11:33 WBC RBC Hgb Hct MCHC RDW Lymph % (Auto) [place] % (Auto) [place] # Eos # Seg Neutrophils % Seg Neuts % (Manual) Lymphocytes % (Manual) Monocytes % (Manual) Eosinophils % (Manual) Basophils % (Manual) Seg Neutrophils # Seg Neutrophils # Man Lymphocytes # (Manual) Monocytes # (Manual) Eosinophils # (Manual) Basophils # (Manual) Heparin Anti-Xa Level ABG pH POC ABG pO2 ABG pO2 ABG HCO3 ABG O2 Saturation ABG Base Excess ABG Hemoglobin ABG Oxyhemoglobin Oxyhemoglobin Sodium Potassium Chloride Carbon Dioxide BUN Creatinine Glucose POC Glucose 142 H 111 H 169 H Lactic Acid Calcium Phosphorus Magnesium AST ALT Lactate Dehydrogenase CK-MB (CK-2) C-Reactive Protein NT-Pro-B Natriuret Pep Total Protein Albumin Urine WBC (Auto) 12/07/19 12/07/19 12/07/19 12:41 13:25 18:19 WBC 12.4 H RBC 3.53 L Hgb 10.2 L Hct 32.1 L MCHC RDW 15.3 H Lymph % (Auto) 10.6 L [place] % (Auto) 7.8 H [place] # 1.0 H Eos # Seg Neutrophils % 77.6 H Seg Neuts % (Manual) Lymphocytes % (Manual) Monocytes % (Manual) Eosinophils % (Manual) Basophils % (Manual) Seg Neutrophils # 9.6 H Seg Neutrophils # Man Lymphocytes # (Manual) Monocytes # (Manual) Eosinophils # (Manual) Basophils # (Manual) Heparin Anti-Xa Level ABG pH POC ABG pO2 ABG pO2 ABG HCO3 ABG O2 Saturation ABG Base Excess ABG Hemoglobin ABG Oxyhemoglobin Oxyhemoglobin Sodium 149 H Potassium Chloride 108.4 H Carbon Dioxide BUN 26 H Creatinine 0.6 L Glucose 149 H POC Glucose 164 H Lactic Acid Calcium Phosphorus Magnesium 2.60 H AST 121 H ALT 145 H Lactate Dehydrogenase CK-MB (CK-2) C-Reactive Protein NT-Pro-B Natriuret Pep Total Protein Albumin 2.6 L Urine WBC (Auto) 12/07/19 12/08/19 12/08/19 22:25 00:02 03:55 WBC 13.3 H RBC 3.40 L Hgb 9.7 L Hct 30.8 L MCHC 31 L RDW 15.5 H Lymph % (Auto) [place] % (Auto) 8.1 H [place] # 1.1 H Eos # Seg Neutrophils % 73.0 H Seg Neuts % (Manual) Lymphocytes % (Manual) Monocytes % (Manual) Eosinophils % (Manual) Basophils % (Manual) Seg Neutrophils # 9.7 H Seg Neutrophils # Man Lymphocytes # (Manual) Monocytes # (Manual) Eosinophils # (Manual) Basophils # (Manual) Heparin Anti-Xa Level 0.12 L ABG pH POC ABG pO2 ABG pO2 ABG HCO3 ABG O2 Saturation ABG Base Excess ABG Hemoglobin ABG Oxyhemoglobin Oxyhemoglobin Sodium Potassium Chloride Carbon Dioxide BUN Creatinine Glucose POC Glucose 151 H Lactic Acid Calcium Phosphorus Magnesium AST ALT Lactate Dehydrogenase CK-MB (CK-2) C-Reactive Protein NT-Pro-B Natriuret Pep Total Protein Albumin Urine WBC (Auto) 12/08/19 12/08/19 12/08/19 03:55 05:21 06:01 WBC RBC Hgb Hct MCHC RDW Lymph % (Auto) [place] % (Auto) [place] # Eos # Seg Neutrophils % Seg Neuts % (Manual) Lymphocytes % (Manual) Monocytes % (Manual) Eosinophils % (Manual) Basophils % (Manual) Seg Neutrophils # Seg Neutrophils # Man Lymphocytes # (Manual) Monocytes # (Manual) Eosinophils # (Manual) Basophils # (Manual) Heparin Anti-Xa Level 0.20 L ABG pH POC ABG pO2 ABG pO2 ABG HCO3 ABG O2 Saturation ABG Base Excess ABG Hemoglobin ABG Oxyhemoglobin Oxyhemoglobin Sodium 149 H Potassium Chloride 108.0 H Carbon Dioxide BUN 28 H Creatinine 0.6 L Glucose 144 H POC Glucose 143 H Lactic Acid Calcium Phosphorus Magnesium AST 98 H ALT 145 H Lactate Dehydrogenase CK-MB (CK-2) C-Reactive Protein NT-Pro-B Natriuret Pep Total Protein 6.0 L Albumin 2.4 L Urine WBC (Auto) 12/08/19 12/08/19 12/08/19 12:08 18:11 23:53 WBC RBC Hgb Hct MCHC RDW Lymph % (Auto) [place] % (Auto) [place] # Eos # Seg Neutrophils % Seg Neuts % (Manual) Lymphocytes % (Manual) Monocytes % (Manual) Eosinophils % (Manual) Basophils % (Manual) Seg Neutrophils # Seg Neutrophils # Man Lymphocytes # (Manual) Monocytes # (Manual) Eosinophils # (Manual) Basophils # (Manual) Heparin Anti-Xa Level ABG pH POC ABG pO2 ABG pO2 ABG HCO3 ABG O2 Saturation ABG Base Excess ABG Hemoglobin ABG Oxyhemoglobin Oxyhemoglobin Sodium Potassium Chloride Carbon Dioxide BUN Creatinine Glucose POC Glucose 172 H 122 H 162 H Lactic Acid Calcium Phosphorus Magnesium AST ALT Lactate Dehydrogenase CK-MB (CK-2) C-Reactive Protein NT-Pro-B Natriuret Pep Total Protein Albumin Urine WBC (Auto) 12/09/19 12/09/19 12/09/19 04:03 04:03 05:53 WBC RBC Hgb 9.1 L Hct 28.9 L MCHC RDW Lymph % (Auto) [place] % (Auto) [place] # Eos # Seg Neutrophils % Seg Neuts % (Manual) Lymphocytes % (Manual) Monocytes % (Manual) Eosinophils % (Manual) Basophils % (Manual) Seg Neutrophils # Seg Neutrophils # Man Lymphocytes # (Manual) Monocytes # (Manual) Eosinophils # (Manual) Basophils # (Manual) Heparin Anti-Xa Level 0.15 L ABG pH POC ABG pO2 ABG pO2 ABG HCO3 ABG O2 Saturation ABG Base Excess ABG Hemoglobin ABG Oxyhemoglobin Oxyhemoglobin Sodium Potassium Chloride Carbon Dioxide BUN Creatinine Glucose POC Glucose 124 H Lactic Acid Calcium Phosphorus Magnesium AST ALT Lactate Dehydrogenase CK-MB (CK-2) C-Reactive Protein NT-Pro-B Natriuret Pep Total Protein Albumin Urine WBC (Auto) 12/09/19 12/09/19 12/10/19 09:43 12:41 00:13 WBC RBC Hgb Hct MCHC RDW Lymph % (Auto) [place] % (Auto) [place] # Eos # Seg Neutrophils % Seg Neuts % (Manual) Lymphocytes % (Manual) Monocytes % (Manual) Eosinophils % (Manual) Basophils % (Manual) Seg Neutrophils # Seg Neutrophils # Man Lymphocytes # (Manual) Monocytes # (Manual) Eosinophils # (Manual) Basophils # (Manual) Heparin Anti-Xa Level ABG pH POC ABG pO2 ABG pO2 ABG HCO3 ABG O2 Saturation ABG Base Excess ABG Hemoglobin ABG Oxyhemoglobin Oxyhemoglobin Sodium Potassium Chloride Carbon Dioxide BUN 25 H Creatinine 0.6 L Glucose 131 H POC Glucose 109 H 120 H Lactic Acid Calcium Phosphorus Magnesium AST ALT Lactate Dehydrogenase CK-MB (CK-2) C-Reactive Protein NT-Pro-B Natriuret Pep Total Protein Albumin Urine WBC (Auto) 12/10/19 12/10/19 12/10/19 04:14 04:14 12:00 WBC 13.3 H RBC 3.34 L Hgb 9.6 L Hct 30.4 L MCHC RDW 15.4 H Lymph % (Auto) [place] % (Auto) [place] # Eos # Seg Neutrophils % Seg Neuts % (Manual) 75.0 H Lymphocytes % (Manual) 13.0 L Monocytes % (Manual) 8.0 H Eosinophils % (Manual) Basophils % (Manual) 2.0 H Seg Neutrophils # Seg Neutrophils # Man 10.0 H Lymphocytes # (Manual) Monocytes # (Manual) 1.1 H Eosinophils # (Manual) Basophils # (Manual) 0.3 H Heparin Anti-Xa Level ABG pH POC ABG pO2 ABG pO2 ABG HCO3 ABG O2 Saturation ABG Base Excess ABG Hemoglobin ABG Oxyhemoglobin Oxyhemoglobin Sodium 147 H Potassium Chloride 108.3 H Carbon Dioxide BUN 21 H Creatinine 0.6 L Glucose 104 H POC Glucose 133 H Lactic Acid Calcium Phosphorus Magnesium AST ALT Lactate Dehydrogenase CK-MB (CK-2) C-Reactive Protein NT-Pro-B Natriuret Pep Total Protein Albumin Urine WBC (Auto) 12/10/19 12/10/19 12/11/19 18:44 21:20 00:08 WBC 14.9 H RBC 3.36 L Hgb 9.6 L Hct 30.5 L MCHC RDW 15.4 H Lymph % (Auto) [place] % (Auto) [place] # Eos # Seg Neutrophils % Seg Neuts % (Manual) Lymphocytes % (Manual) Monocytes % (Manual) Eosinophils % (Manual) Basophils % (Manual) Seg Neutrophils # Seg Neutrophils # Man Lymphocytes # (Manual) Monocytes # (Manual) Eosinophils # (Manual) Basophils # (Manual) Heparin Anti-Xa Level ABG pH POC ABG pO2 ABG pO2 ABG HCO3 ABG O2 Saturation ABG Base Excess ABG Hemoglobin ABG Oxyhemoglobin Oxyhemoglobin Sodium Potassium Chloride Carbon Dioxide BUN Creatinine Glucose POC Glucose 119 H 134 H Lactic Acid Calcium Phosphorus Magnesium AST ALT Lactate Dehydrogenase CK-MB (CK-2) C-Reactive Protein NT-Pro-B Natriuret Pep Total Protein Albumin Urine WBC (Auto) 12/11/19 12/11/19 12/11/19 03:54 07:28 08:36 WBC 11.9 H RBC 3.25 L Hgb 9.6 L Hct 29.2 L MCHC RDW 15.7 H Lymph % (Auto) [place] % (Auto) [place] # Eos # Seg Neutrophils % Seg Neuts % (Manual) Lymphocytes % (Manual) Monocytes % (Manual) Eosinophils % (Manual) Basophils % (Manual) Seg Neutrophils # Seg Neutrophils # Man Lymphocytes # (Manual) Monocytes # (Manual) Eosinophils # (Manual) Basophils # (Manual) Heparin Anti-Xa Level 0.10 L 0.16 L ABG pH POC ABG pO2 ABG pO2 ABG HCO3 ABG O2 Saturation ABG Base Excess ABG Hemoglobin ABG Oxyhemoglobin Oxyhemoglobin Sodium Potassium Chloride Carbon Dioxide BUN Creatinine Glucose POC Glucose Lactic Acid Calcium Phosphorus Magnesium AST ALT Lactate Dehydrogenase CK-MB (CK-2) C-Reactive Protein NT-Pro-B Natriuret Pep Total Protein Albumin Urine WBC (Auto) 12/11/19 12/11/19 12/11/19 08:36 11:45 17:15 WBC RBC Hgb Hct MCHC RDW Lymph % (Auto) [place] % (Auto) [place] # Eos # Seg Neutrophils % Seg Neuts % (Manual) Lymphocytes % (Manual) Monocytes % (Manual) Eosinophils % (Manual) Basophils % (Manual) Seg Neutrophils # Seg Neutrophils # Man Lymphocytes # (Manual) Monocytes # (Manual) Eosinophils # (Manual) Basophils # (Manual) Heparin Anti-Xa Level ABG pH POC ABG pO2 ABG pO2 ABG HCO3 ABG O2 Saturation ABG Base Excess ABG Hemoglobin ABG Oxyhemoglobin Oxyhemoglobin Sodium Potassium Chloride Carbon Dioxide BUN Creatinine 0.5 L Glucose 128 H POC Glucose 136 H 109 H Lactic Acid Calcium Phosphorus Magnesium AST ALT Lactate Dehydrogenase CK-MB (CK-2) C-Reactive Protein NT-Pro-B Natriuret Pep Total Protein Albumin Urine WBC (Auto) 12/12/19 12/12/19 12/12/19 00:03 05:53 05:53 WBC RBC Hgb 8.8 L Hct 27.6 L MCHC RDW Lymph % (Auto) [place] % (Auto) [place] # Eos # Seg Neutrophils % Seg Neuts % (Manual) Lymphocytes % (Manual) Monocytes % (Manual) Eosinophils % (Manual) Basophils % (Manual) Seg Neutrophils # Seg Neutrophils # Man Lymphocytes # (Manual) Monocytes # (Manual) Eosinophils # (Manual) Basophils # (Manual) Heparin Anti-Xa Level 0.22 L ABG pH POC ABG pO2 ABG pO2 ABG HCO3 ABG O2 Saturation ABG Base Excess ABG Hemoglobin ABG Oxyhemoglobin Oxyhemoglobin Sodium Potassium Chloride Carbon Dioxide BUN Creatinine Glucose POC Glucose 116 H Lactic Acid Calcium Phosphorus Magnesium AST ALT Lactate Dehydrogenase CK-MB (CK-2) C-Reactive Protein NT-Pro-B Natriuret Pep Total Protein Albumin Urine WBC (Auto) 12/12/19 12/12/19 12/12/19 09:38 12:18 17:44 WBC RBC Hgb Hct MCHC RDW Lymph % (Auto) [place] % (Auto) [place] # Eos # Seg Neutrophils % Seg Neuts % (Manual) Lymphocytes % (Manual) Monocytes % (Manual) Eosinophils % (Manual) Basophils % (Manual) Seg Neutrophils # Seg Neutrophils # Man Lymphocytes # (Manual) Monocytes # (Manual) Eosinophils # (Manual) Basophils # (Manual) Heparin Anti-Xa Level ABG pH POC ABG pO2 ABG pO2 ABG HCO3 ABG O2 Saturation ABG Base Excess ABG Hemoglobin ABG Oxyhemoglobin Oxyhemoglobin Sodium Potassium Chloride Carbon Dioxide BUN Creatinine Glucose POC Glucose 115 H 146 H 146 H Lactic Acid Calcium Phosphorus Magnesium AST ALT Lactate Dehydrogenase CK-MB (CK-2) C-Reactive Protein NT-Pro-B Natriuret Pep Total Protein Albumin Urine WBC (Auto) 12/12/19 12/13/19 12/13/19 23:33 05:32 05:32 WBC 13.1 H RBC 3.27 L Hgb 9.5 L Hct 29.3 L MCHC RDW 15.6 H Lymph % (Auto) [place] % (Auto) [place] # Eos # Seg Neutrophils % Seg Neuts % (Manual) 74.0 H Lymphocytes % (Manual) 8.0 L Monocytes % (Manual) 9.0 H Eosinophils % (Manual) 5.0 H Basophils % (Manual) Seg Neutrophils # Seg Neutrophils # Man 9.7 H Lymphocytes # (Manual) 1.0 L Monocytes # (Manual) 1.2 H Eosinophils # (Manual) 0.7 H Basophils # (Manual) Heparin Anti-Xa Level 0.20 L ABG pH POC ABG pO2 ABG pO2 ABG HCO3 ABG O2 Saturation ABG Base Excess ABG Hemoglobin ABG Oxyhemoglobin Oxyhemoglobin Sodium Potassium Chloride Carbon Dioxide BUN Creatinine Glucose POC Glucose 126 H Lactic Acid Calcium Phosphorus Magnesium AST ALT Lactate Dehydrogenase CK-MB (CK-2) C-Reactive Protein NT-Pro-B Natriuret Pep Total Protein Albumin Urine WBC (Auto) 12/13/19 12/13/19 12/13/19 05:32 05:46 11:57 WBC RBC Hgb Hct MCHC RDW Lymph % (Auto) [place] % (Auto) [place] # Eos # Seg Neutrophils % Seg Neuts % (Manual) Lymphocytes % (Manual) Monocytes % (Manual) Eosinophils % (Manual) Basophils % (Manual) Seg Neutrophils # Seg Neutrophils # Man Lymphocytes # (Manual) Monocytes # (Manual) Eosinophils # (Manual) Basophils # (Manual) Heparin Anti-Xa Level ABG pH POC ABG pO2 ABG pO2 ABG HCO3 ABG O2 Saturation ABG Base Excess ABG Hemoglobin ABG Oxyhemoglobin Oxyhemoglobin Sodium Potassium Chloride Carbon Dioxide 31 H BUN Creatinine 0.6 L Glucose 114 H POC Glucose 118 H 133 H Lactic Acid Calcium Phosphorus Magnesium AST ALT Lactate Dehydrogenase CK-MB (CK-2) C-Reactive Protein NT-Pro-B Natriuret Pep Total Protein Albumin Urine WBC (Auto) 12/13/19 12/13/19 12/14/19 17:44 23:46 05:32 WBC RBC Hgb Hct MCHC RDW Lymph % (Auto) [place] % (Auto) [place] # Eos # Seg Neutrophils % Seg Neuts % (Manual) Lymphocytes % (Manual) Monocytes % (Manual) Eosinophils % (Manual) Basophils % (Manual) Seg Neutrophils # Seg Neutrophils # Man Lymphocytes # (Manual) Monocytes # (Manual) Eosinophils # (Manual) Basophils # (Manual) Heparin Anti-Xa Level ABG pH POC ABG pO2 ABG pO2 ABG HCO3 ABG O2 Saturation ABG Base Excess ABG Hemoglobin ABG Oxyhemoglobin Oxyhemoglobin Sodium Potassium Chloride Carbon Dioxide BUN Creatinine Glucose POC Glucose 161 H 126 H 139 H Lactic Acid Calcium Phosphorus Magnesium AST ALT Lactate Dehydrogenase CK-MB (CK-2) C-Reactive Protein NT-Pro-B Natriuret Pep Total Protein Albumin Urine WBC (Auto) 12/14/19 12/14/19 12/14/19 06:03 06:03 09:37 WBC RBC Hgb 9.6 L Hct 30.4 L MCHC RDW Lymph % (Auto) [place] % (Auto) [place] # Eos # Seg Neutrophils % Seg Neuts % (Manual) Lymphocytes % (Manual) Monocytes % (Manual) Eosinophils % (Manual) Basophils % (Manual) Seg Neutrophils # Seg Neutrophils # Man Lymphocytes # (Manual) Monocytes # (Manual) Eosinophils # (Manual) Basophils # (Manual) Heparin Anti-Xa Level 0.24 L ABG pH POC ABG pO2 ABG pO2 ABG HCO3 ABG O2 Saturation ABG Base Excess ABG Hemoglobin ABG Oxyhemoglobin Oxyhemoglobin Sodium Potassium Chloride Carbon Dioxide BUN Creatinine 0.6 L Glucose 162 H POC Glucose Lactic Acid Calcium Phosphorus Magnesium AST 71 H ALT 118 H Lactate Dehydrogenase CK-MB (CK-2) C-Reactive Protein NT-Pro-B Natriuret Pep Total Protein 6.2 L Albumin 2.3 L Urine WBC (Auto) 12/14/19 12/14/19 12/15/19 12:06 18:18 00:19 WBC RBC Hgb Hct MCHC RDW Lymph % (Auto) [place] % (Auto) [place] # Eos # Seg Neutrophils % Seg Neuts % (Manual) Lymphocytes % (Manual) Monocytes % (Manual) Eosinophils % (Manual) Basophils % (Manual) Seg Neutrophils # Seg Neutrophils # Man Lymphocytes # (Manual) Monocytes # (Manual) Eosinophils # (Manual) Basophils # (Manual) Heparin Anti-Xa Level ABG pH POC ABG pO2 ABG pO2 ABG HCO3 ABG O2 Saturation ABG Base Excess ABG Hemoglobin ABG Oxyhemoglobin Oxyhemoglobin Sodium Potassium Chloride Carbon Dioxide BUN Creatinine Glucose POC Glucose 147 H 166 H 123 H Lactic Acid Calcium Phosphorus Magnesium AST ALT Lactate Dehydrogenase CK-MB (CK-2) C-Reactive Protein NT-Pro-B Natriuret Pep Total Protein Albumin Urine WBC (Auto) 12/15/19 12/15/19 12/15/19 05:28 05:29 05:29 WBC 14.9 H RBC 3.19 L Hgb 9.1 L Hct 28.7 L MCHC RDW 16.0 H Lymph % (Auto) [place] % (Auto) [place] # Eos # Seg Neutrophils % Seg Neuts % (Manual) Lymphocytes % (Manual) Monocytes % (Manual) Eosinophils % (Manual) Basophils % (Manual) Seg Neutrophils # Seg Neutrophils # Man Lymphocytes # (Manual) Monocytes # (Manual) Eosinophils # (Manual) Basophils # (Manual) Heparin Anti-Xa Level 0.19 L ABG pH POC ABG pO2 ABG pO2 ABG HCO3 ABG O2 Saturation ABG Base Excess ABG Hemoglobin ABG Oxyhemoglobin Oxyhemoglobin Sodium Potassium Chloride Carbon Dioxide BUN Creatinine 0.6 L Glucose 110 H POC Glucose Lactic Acid Calcium Phosphorus Magnesium AST ALT Lactate Dehydrogenase CK-MB (CK-2) C-Reactive Protein NT-Pro-B Natriuret Pep Total Protein Albumin Urine WBC (Auto) 12/15/19 05:53 WBC RBC Hgb Hct MCHC RDW Lymph % (Auto) [place] % (Auto) [place] # Eos # Seg Neutrophils % Seg Neuts % (Manual) Lymphocytes % (Manual) Monocytes % (Manual) Eosinophils % (Manual) Basophils % (Manual) Seg Neutrophils # Seg Neutrophils # Man Lymphocytes # (Manual) Monocytes # (Manual) Eosinophils # (Manual) Basophils # (Manual) Heparin Anti-Xa Level ABG pH POC ABG pO2 ABG pO2 ABG HCO3 ABG O2 Saturation ABG Base Excess ABG Hemoglobin ABG Oxyhemoglobin Oxyhemoglobin Sodium Potassium Chloride Carbon Dioxide BUN Creatinine Glucose POC Glucose 119 H Lactic Acid Calcium Phosphorus Magnesium AST ALT Lactate Dehydrogenase CK-MB (CK-2) C-Reactive Protein NT-Pro-B Natriuret Pep Total Protein Albumin Urine WBC (Auto) Allied health notes reviewed: nursing
[2019-12-15] MEDS ORDERED: FUROSEMIDE 40 MG/4 ML INJ IV ONE (11:00)
--- NOTE | 2019-12-15 12:19 | Progress Note ---
Assessment and Plan Transient Afib after CPAP trial currently in sinus rhythm Ischemic Cardiomyopathy, resolving re-echo this presentation reports an LVEF 40-45%. echo 08/2018: decreased LVEF 20-25%. Hx of CAD [facility] 12/2018: mild in-stent restenosis. No significant residual disease. Multifocal pneumonia with intermittent fevers negative COVID-19 test x 2 Respiratory failure Acute PE/DVT on IV heparin Recommendations: Continue amiodarone and metoprolol for suppression of paroxysmal atrial fibrillation. Otherwise, conservative cardiac management. Subjective Date of service: 12/15/19 Principal diagnosis: Ac hypoxemic resp failure; Pneumonia; PUI COVID-19; CHF; COPD; HTN Interval history: Remains intubated on the vent. Stable sinus rhythm on telemetry. Objective Vital Signs Temp Pulse Pulse Resp Resp BP Pulse Ox 12/15/19 11:00 79 15 124/72 91 12/15/19 10:31 83 13 133/79 92 12/15/19 10:00 87 14 133/79 92 12/15/19 09:31 80 16 124/81 93 12/15/19 09:00 85 13 124/81 12/15/19 08:55 80 121/78 98 12/15/19 08:31 80 12 121/78 97 12/15/19 08:00 98 F 75 80 14 121/78 96 12/15/19 07:31 71 13 115/79 95 12/15/19 07:00 80 13 115/79 92 12/15/19 06:31 80 11 L 129/76 99 12/15/19 06:00 71 12 119/69 92 12/15/19 05:37 78 87/55 12/15/19 05:30 81 11 L 129/76 96 12/15/19 05:00 72 11 L 85/61 95 12/15/19 04:30 78 12 87/55 96 12/15/19 04:22 83 85/61 95 12/15/19 04:00 98.5 F 78 82 10 L 87/57 96 12/15/19 03:30 71 13 87/61 95 12/15/19 03:00 74 13 96/61 95 12/15/19 02:30 77 10 L 96/61 96 12/15/19 02:00 79 14 96/61 85 12/15/19 01:30 77 13 96/61 96 12/15/19 01:00 74 16 96/51 97 12/15/19 00:30 74 12 96/51 94 12/15/19 00:00 97.9 F 74 74 12 105/71 95 12/14/19 23:30 80 12 105/71 96 12/14/19 23:00 86 15 112/78 98 12/14/19 22:54 87 112/78 99 12/14/19 22:49 88 112/78 12/14/19 22:30 77 12 112/78 96 12/14/19 22:00 93 H 17 115/76 98 12/14/19 21:30 77 12 115/76 95 12/14/19 21:00 78 12 122/84 95 12/14/19 20:30 86 13 122/84 95 12/14/19 20:11 89 122/84 95 12/14/19 20:00 98.4 F 95 H 101 H 16 85/68 94 12/14/19 19:30 101 H 17 85/68 95 12/14/19 19:00 81 16 110/64 97 12/14/19 18:30 79 14 110/64 96 12/14/19 18:00 84 14 118/78 95 12/14/19 17:30 99 H 23 118/78 94 12/14/19 17:25 93 H 118/78 94 12/14/19 17:00 97 H 19 120/85 93 12/14/19 16:30 113 H 24 120/85 99 12/14/19 16:00 82 12 22 98 12/14/19 15:00 75 19 122/72 97 12/14/19 14:30 75 13 122/72 97 12/14/19 14:28 75 122/78 12/14/19 14:00 80 19 124/94 96 12/14/19 13:30 84 19 124/94 99 12/14/19 13:00 88 17 128/83 100 12/14/19 12:30 75 14 128/83 98 - Physical Examination General: Other (intubated) Cardiac: Positive: Reg Rate and Rhythm - Labs and Meds CBC 12/15/19 Range/Units 05:29 WBC 14.9 H (4.5-11.0) K/mm3 RBC 3.19 L (3.65-5.03) M/mm3 Hgb 9.1 L (11.8-15.2) gm/dl Hct 28.7 L (35.5-45.6) % Plt Count 310 (140-440) K/mm3 Comprehensive Metabolic Panel 12/15/19 Range/Units 05:29 Sodium 139 (137-145) mmol/L Potassium 4.7 (3.6-5.0) mmol/L Chloride 99.8 (98-107) mmol/L Carbon Dioxide 30 (22-30) mmol/L BUN 17 (9-20) mg/dL Creatinine 0.6 L (0.8-1.3) mg/dL Glucose 110 H (75-100) mg/dL Calcium 9.5 (8.4-10.2) mg/dL - Allied health notes Allied health notes reviewed: nursing
--- NOTE | 2019-12-15 14:48 | Progress Note ---
Assessment and Plan -Acute LLL PE -Acute RLE DVT -Persistent fevers; secondary to sepsis and acute PE/DVT -Severe sepsis; secondary to bilateral pneumonia, persistent fevers -Acute hypoxemic respiratory failure, on vent unable to wean -Bilateral pneumonia, community acquired, -Aspiration Pneumonia -Sustained SVT, on amiodarone -Acute on chronic systolic congestive heart failure -History of cerebrovascular accident. -Tobacco use disorder -Alcohol abuse with DT -Acute chronic obstructive pulmonary disease exacerbation. -Hypertension and hypertensive urgency at presentation. -History of arthritis. -Paroxysmal atrial fibrillation -Leukocytosis with possible sepsis. -Lactic acidosis. -Bleeding from ET tube -Oropharyngeal dysphagia -S/P Knee surgery -History of peptic Ulcer Surgery -DVT prophylaxis COVID-19 test; 11/24/2019; negative 11/26/2019; negative Plan Continue ventilatory support, Wean as tolerated and extubate., Pulmonary critical care following Completed ceftriaxone and azithromycin for total 5 days per ID ID now started cefepime and Vanco Continue anti-failure medications, cardiology following cont Steroids, Continue diuresis as needed Aspiration precautions Continue amiodarone and metoprolol for suppression of paroxysmal atrial fibrillation. Anticoagulation currently is with intravenous heparin - was brefly on hold for bleeding from ET tube DVT/GI prophy Heparin/Protonix Plan of care reviewed with the patient's nurse Closely monitor the patient and adjust management as needed The high probability of a clinically significant, sudden or life threatening deterioration of the [Respiratory, cardiovascular & neurological] system(s) required my full and direct attention, intervention and personal management. The aggregate critical care time was [33] minutes without overlap. Time includes spent on [x] Data Review and interpretation [x] Patient assessment and monitoring of vital signs [x] Documentation [x] Medication orders and management Brief History Patient is a 64-year-old male with known history of hypertension, COPD, history of coronary artery disease, CHF with ejection fraction of 20 to 25% in August 2018 presenting to the emergency room via EMS complaining of shortness of breath. Patient was found to be hypoxic and in respiratory distress. Patient was placed on CPAP in route to the hospital. Oxygen saturation was said to be 88%. Started on Solu-Medrol, Lasix and magnesium in ED, patient was also found to be lethargic with an oxygen saturation of about 91% on CPAP. He was subsequently intubated. Work-up in the emergency room including chest x-ray reveals bilateral pneumonia. He had an elevated white count of 14 and also had an elevated BNP. Patient to be admitted to the ICU and placed on empiric IV antibiotics for pneumonia. He will also be tested positive for COVID-19 and placed on isolation precautions. Rmains intubated on ventilatory support, sputum cultures positive for Pseudomonas, ID changed antibiotics to cefepime and Vanco. 11/25: Leukocytosis improving. Continue current management anticipate extubation possible today. 11/26. Still intubated. Failed SBT yesterday. Repeat COVID-19 test is negative. 11/27. CT head ordered for possible neuro status change is negative. More responsive as the day progressed as per RN. Chest xray today shows interval improvement. He is still on antibiotics - will complete regimen today. 11/28: Considering difficult extubation and severe cardiomyopathy, will obtain cardiology consult. Aspiration precautions, tube feeds held, continue antibiotics. 11/29: Still with intermittent fever but improving imaging, continue diuresis. 11/30; Extremely agitated when placed on PSV- SVT, hypertension. Patiet acknowledged that he drinks. IV Ativan given, CIWA protocol initiated. 12 lead ordered showed SVT, one dose of amiodarone ordered. continue to follow up cardiology recommendation 12/01: Patient remains on mechanical ventilation, getting SBT trial. Remains in SVT, started on amiodarone drip by cardiology. 12/02; patient is on mechanical ventilation and on spontaneous breathing trial. Cardiology started the patient on PO amiodarone. Patient is on cefepime. 12/03: patient is on mechanical ventilation. Cardiology started the patient on PO amiodarone for SVT. Patient is on cefepime, no fever overnight. 12/04: Patient is sedated and on mechanical ventilation. Patient had fever yesterday afternoon 102.3, ID changed his cefepime to meropenem. Heart rate is controlled, cardiology is following. Patient has paroxysmal atrial fibrillation and on amiodarone and metoprolol, subcu heparin for anticoagulation and will need oral anticoagulation once stable. 12/05: Sputum cultures positive for Pseudomonas, ID following 12/06; patient is febrile T-max 24 hours 102 F ,ID change antibiotics to cefepime and Vancomycin 12/07: resumed care. Na 149 today, start on 03/26 NS. cont current care 12/08: remains in a stable sinus rhythm and stable blood pressure, continue s upportive care. wean off vent as tolerated. persistent fever - ordered CTA chest 12/09: noted bloody discharges from ET tube last night. CTA and LE venous doppler positive for acute PE and DVT. resume heparin drip, consult vascular for possible EKOS/ IVC filter. monitor h/h. cont SBT trial, wean off vent as tolerated. called but no answer 12/10: cont heparin drip for acute PE and DVT, follow vascular recommendation. monitor h/h, wean off vent as tolerated 12/11: o/n had bleeding from ET tube, cont to monitor h/h. vascular recommending medical Mx. called ; Nicolle Araiza [phone]. 12/12: H&H remained stable, patient on heparin drip. Discussed with yesterday. Discussed with critical care attending. Patient not tolerating SBT trial. Continue to wean off from vent as tolerated, follow clinically. Tolerating tube feeding 12/13: Continue heparin drip, wean off from vent as tolerated. Discussed with pulmonary attending if no improvement by the end of 3 weeks of intubation patient may need trach and PEG. Continue to provide supportive care, follow CBC and BMP. 12/14: Stop cefepime today, wean off from vent as tolerated. cont Heparin infusion, while monitoring for bleeding Subjective Date of service: 12/15/19 Principal diagnosis: Ac hypoxemic resp failure; Pneumonia; PUI COVID-19; CHF; COPD; HTN Interval history: Patient seen and examined Patient intubated on mechanical ventilation Discussed with RN at the bedside H/H STABLE, patient remains on heparin drip Objective - Exam Narrative Exam: General appearance: Present: well-nourished, other (Intubated), opens eyes to names and follows minor command - EENT Eyes: Present: PERRL, EOM intact. Absent: scleral icterus ENT: clear oral mucosa, dentition normal - Neck Neck: Present: supple, normal ROM - Respiratory Respiratory effort: normal, mechanical ventilation Respiratory: bilateral: rales - Cardiovascular Rhythm: regular Heart Sounds: Present: S1 & S2, tachycardic. Absent: gallop, systolic murmur, diastolic murmur, rub - Extremities Extremities: no ischemia, pulses intact, pulses symmetrical, No edema, Full ROM Peripheral Pulses: within normal limits - Abdominal General gastrointestinal: Present: soft, non-tender, non-distended, normal bowel sounds. Absent: mass - Integumentary Integumentary: Present: clear, warm, dry. Absent: rash - Musculoskeletal Musculoskeletal: no joint swelling - Psychiatric Psychiatric: sedated Neurology: no focal deficits - Constitutional Vitals: Vital Signs - 12hr 12/15/19 12/15/19 12/15/19 03:00 03:30 04:00 Temperature 98.5 F Pulse Rate 74 71 78 Pulse Rate [ 82 From Monitor] Respiratory 13 13 10 L Rate Blood Pressure 96/61 87/61 87/57 O2 Sat by Pulse 95 95 96 Oximetry 12/15/19 12/15/19 12/15/19 04:22 04:30 05:00 Temperature Pulse Rate 83 78 72 Pulse Rate [ From Monitor] Respiratory 12 11 L Rate Blood Pressure 85/61 87/55 85/61 O2 Sat by Pulse 95 96 95 Oximetry 12/15/19 12/15/19 12/15/19 05:30 05:37 06:00 Temperature Pulse Rate 81 78 71 Pulse Rate [ From Monitor] Respiratory 11 L 12 Rate Blood Pressure 129/76 87/55 119/69 O2 Sat by Pulse 96 92 Oximetry 12/15/19 12/15/19 12/15/19 06:31 07:00 07:31 Temperature Pulse Rate 80 80 71 Pulse Rate [ From Monitor] Respiratory 11 L 13 13 Rate Blood Pressure 129/76 115/79 115/79 O2 Sat by Pulse 99 92 95 Oximetry 12/15/19 12/15/19 12/15/19 08:00 08:31 08:55 Temperature 98 F Pulse Rate 75 80 80 Pulse Rate [ 80 From Monitor] Respiratory 14 12 Rate Blood Pressure 121/78 121/78 121/78 O2 Sat by Pulse 96 97 98 Oximetry 12/15/19 12/15/19 12/15/19 09:00 09:31 10:00 Temperature Pulse Rate 85 80 87 Pulse Rate [ From Monitor] Respiratory 13 16 14 Rate Blood Pressure 124/81 124/81 133/79 O2 Sat by Pulse 93 92 Oximetry 12/15/19 12/15/19 12/15/19 10:31 11:00 11:31 Temperature Pulse Rate 83 79 79 Pulse Rate [ From Monitor] Respiratory 13 15 13 Rate Blood Pressure 133/79 124/72 124/72 O2 Sat by Pulse 92 91 95 Oximetry 12/15/19 12/15/19 12/15/19 12:00 12:31 12:50 Temperature 98.3 F Pulse Rate 86 91 H 85 Pulse Rate [ 89 From Monitor] Respiratory 12 12 Rate Blood Pressure 140/99 124/72 O2 Sat by Pulse 96 95 97 Oximetry 12/15/19 12/15/19 13:00 13:10 Temperature Pulse Rate 97 H 102 H Pulse Rate [ From Monitor] Respiratory 17 Rate Blood Pressure 145/97 145/97 O2 Sat by Pulse 96 Oximetry - Labs CBC & Chem 7: 12/16/19 05:46 12/16/19 05:46 Labs: Abnormal lab results 12/14/19 12/15/19 12/15/19 Range/Units 18:18 00:19 05:28 WBC (4.5-11.0) K/mm3 RBC (3.65-5.03) M/mm3 Hgb (11.8-15.2) gm/dl Hct (35.5-45.6) % RDW (13.2-15.2) % Heparin Anti-Xa Level 0.19 L (0.3-0.7) U.I./ml Creatinine (0.8-1.3) mg/dL Glucose (75-100) mg/dL POC Glucose 166 H 123 H (70-105) 12/15/19 12/15/19 12/15/19 Range/Units 05:29 05:29 05:53 WBC 14.9 H (4.5-11.0) K/mm3 RBC 3.19 L (3.65-5.03) M/mm3 Hgb 9.1 L (11.8-15.2) gm/dl Hct 28.7 L (35.5-45.6) % RDW 16.0 H (13.2-15.2) % Heparin Anti-Xa Level (0.3-0.7) U.I./ml Creatinine 0.6 L (0.8-1.3) mg/dL Glucose 110 H (75-100) mg/dL POC Glucose 119 H (70-105) 12/15/19 Range/Units 11:50 WBC (4.5-11.0) K/mm3 RBC (3.65-5.03) M/mm3 Hgb (11.8-15.2) gm/dl Hct (35.5-45.6) % RDW (13.2-15.2) % Heparin Anti-Xa Level (0.3-0.7) U.I./ml Creatinine (0.8-1.3) mg/dL Glucose (75-100) mg/dL POC Glucose 132 H (70-105) HEART Score - HEART Score Troponin: Troponin T < 0.010 ng/mL (0.00-0.029) 11/24/19 02:53
[2019-12-15] MEDS: LORazepam 2 MG/ML VIAL IV PRN (21:08)
[2019-12-15] MEDS: QUEtiapine 100 MG TAB PO SCH (21:13)
[2019-12-15] MEDS: POLYETHYLENE GLYCOL 3350 17 GM POWDER PO SCH (21:13)
[2019-12-16] MEDS: ACETAMINOPHEN 325 MG/10.15 ML ORAL LIQD UNIT DOSE FEEDTUBE PRN (00:29)
[2019-12-16] MEDS: INSULIN LISPRO 100 UNIT/ML VIAL 3 mL SUB-Q SCH ×4 (00:29→18:36)
[2019-12-16] MEDS: fentaNYL DRIP Premix 2,000 MCG/100 ML BAG IV SCH ×3 (05:21→21:46)
[2019-12-16] MEDS: METOPROLOL TARTRATE 50 MG TAB PO SCH ×3 (05:23→21:46)
[2019-12-16 06:07] LABS: Hematocrit 27.9 % (35.5-45.6); Hemoglobin 8.8 gm/dl (11.8-15.2)
[2019-12-16 06:17] LABS: Blood Urea Nitrogen 16 mg/dL (9-20); Hemolysis Index 7
[2019-12-16 06:22] LABS: BUN/Creatinine Ratio 32
--- NOTE | 2019-12-16 08:47 | Progress Note ---
Assessment and Plan Acute hypoxemic respiratory failure Bilateral pneumonia, community acquired. Acute congestive heart failure exacerbation. History of cerebrovascular accident. Acute chronic obstructive pulmonary disease exacerbation. Hypertension and hypertensive urgency at presentation. History of arthritis. Oropharyngeal dysphagia Right Lext DVT Pulmonary embolism Heparin infusion, while monitoring for bleeding SBTs as tolerated Bowel regimen Monitor off antibiotics, trend WCC and temperature curve If not liberated from MVS in by the end of the week, will need trach/PEG placement Notified . Will plan to place Surgery consult early next week - continue to monitor renal function, hemodynamics and electrolyte profile - continue to wean oxygen for O2 sats > 90% - continue bronchodilators with pulmonary hygiene per RT - VAP bundle addressed (Aspiration precautions, HOB >40) - continue to wean per pulmonary driven protocols - continue prn analgesia per CPOT score - follow clinically re: fever curves / trend WBC - Avoid delirium (no benzodiazepines if they can be avoided) - Enteral nutrition at goal rate as tolerated - continue accuchecks with glycemic control per SSI for target blood glucose goal of 140-180 mg/dL while critically ill; Avoid hypoglycemia - continue VTE prophylaxis with Heparin therapeutic dosing for PE/DVT - continue stress ulcer prophylaxis with Famotidine BID - continue mobility protocols for pressure ulcer prophylaxis - continue fall precautions - continue wound care management per RN / WCT - Supportive transfusions as indicated to keep HgB>7g/dL - Continue to monitor neurologic function - Continue chronic home medications as clinically indicated - Continue all supportive care CONDITION: CRITICAL PROGNOSIS: GUARDED CODE STATUS: FULL CODE The high probability of a clinically significant, sudden or life threatening deterioration of the [Respiratory, cardiovascular & neurological] system(s) required my full and direct attention, intervention and personal management. The aggregate critical care time was [33] minutes without overlap. Time includes spent on [x] Data Review and interpretation [x] Patient assessment and monitoring of vital signs [x] Documentation [x] Medication orders and management Subjective Date of service: 12/16/19 Principal diagnosis: Ac hypoxemic resp failure; Pneumonia; PUI COVID-19; CHF; COPD; HTN Interval history: Patient is seen today for: Acute hypoxemic respiratory failure; Adan. Pneumonia (CAP); PUI COVID-19 infection; AE-CHF; AE-COPD; H/O CVA; HTN; PE, DVT Seen and examined at bedside; 24 hour events reviewed; nursing and respiratory care staff consulted; no adverse overnight events reported to me; resting peacefully in bed; ETT in place. No asynchrony, No further episodes of vomiting s/p Cefepime Vent 500/12/8/40%. On Fentanyl at 2 mcg, heparin infusion, minimal trach bleeding Objective Vital Signs - 12hr 12/15/19 12/15/19 12/15/19 21:00 21:14 21:31 Temperature Pulse Rate 154 H 129 H 105 H Pulse Rate [ From Monitor] Respiratory 24 20 Rate Blood Pressure 191/131 171/99 191/131 O2 Sat by Pulse 85 92 Oximetry 12/15/19 12/15/19 12/15/19 22:00 22:31 23:00 Temperature Pulse Rate 93 H 86 83 Pulse Rate [ From Monitor] Respiratory 16 15 15 Rate Blood Pressure 143/93 171/99 139/84 O2 Sat by Pulse 92 93 91 Oximetry 12/15/19 12/15/19 12/15/19 23:15 23:31 23:38 Temperature 100.3 F H Pulse Rate 81 81 Pulse Rate [ From Monitor] Respiratory 15 15 Rate Blood Pressure 139/84 139/84 O2 Sat by Pulse 95 95 Oximetry 12/15/19 12/16/19 12/16/19 23:39 00:00 00:31 Temperature Pulse Rate 81 81 81 Pulse Rate [ 139 H From Monitor] Respiratory 14 14 Rate Blood Pressure 139/84 132/85 139/84 O2 Sat by Pulse 96 92 95 Oximetry 12/16/19 12/16/19 12/16/19 01:00 01:31 02:00 Temperature Pulse Rate 81 81 82 Pulse Rate [ From Monitor] Respiratory 14 14 16 Rate Blood Pressure 134/87 134/87 138/87 O2 Sat by Pulse 93 95 93 Oximetry 12/16/19 12/16/19 12/16/19 02:31 03:00 03:30 Temperature Pulse Rate 79 83 80 Pulse Rate [ From Monitor] Respiratory 14 14 12 Rate Blood Pressure 134/87 139/86 139/86 O2 Sat by Pulse 96 94 94 Oximetry 12/16/19 12/16/19 12/16/19 03:38 04:00 04:31 Temperature 99.7 F H Pulse Rate 83 81 Pulse Rate [ 139 H From Monitor] Respiratory 13 13 Rate Blood Pressure 130/83 130/83 O2 Sat by Pulse 91 97 Oximetry 12/16/19 12/16/19 12/16/19 05:00 05:02 05:23 Temperature Pulse Rate 82 82 81 Pulse Rate [ From Monitor] Respiratory 14 Rate Blood Pressure 122/83 122/83 122/83 O2 Sat by Pulse 93 97 Oximetry 12/16/19 12/16/19 12/16/19 05:31 06:00 06:30 Temperature Pulse Rate 79 78 80 Pulse Rate [ From Monitor] Respiratory 12 13 13 Rate Blood Pressure 122/83 114/78 114/78 O2 Sat by Pulse 95 94 94 Oximetry 12/16/19 12/16/19 12/16/19 07:00 07:31 08:32 Temperature Pulse Rate 77 73 82 Pulse Rate [ From Monitor] Respiratory 16 13 Rate Blood Pressure 109/77 109/77 113/77 O2 Sat by Pulse 93 95 94 Oximetry Constitutional: no acute distress, agitated, other (elderly and obese male, normocephalic with mildly increased respiratory effort at rest on MVS) Eyes: non-icteric ENT: oropharynx moist, other (ETT 24 cm JASON) Neck: supple, no JVD Effort: very labored Ascultation: Bilateral: clear, diminished breath sounds, rhonchi (scant; improved RLL air entry also) Percussion: Bilateral: not dull Cardiovascular: irregular rhythm Gastrointestinal: normoactive bowel sounds, soft, non-tender, non-distended Integumentary: normal Extremities: no cyanosis, no edema, pulses normal, no ischemia or petechiae Neurologic: non-focal exam (moves all extremities with extreme agitation), pupils equal and round, motor strength normal and, other (sedated lightly) Psychiatric: mood appropriate, affect normal CBC and BMP: 12/23/19 03:51 12/23/19 03:51 ABG, PT/INR, D-dimer: ABG ABG pH 7.439 (7.320-7.450) 12/02/19 12:58 POC ABG pCO2 45.1 mmHg (32.0-48.0) 12/02/19 12:58 ABG pCO2 43.4 mm Hg 11/30/19 04:56 POC ABG pO2 78.1 mmHg (83-108) L 12/02/19 12:58 ABG pO2 56.3 mm Hg (80.0-90.0) L 11/30/19 04:56 POC ABG HCO3 29.9 12/02/19 12:58 ABG O2 Saturation 91.5 % (95.0-99.0) L 11/30/19 04:56 PT/INR, D-dimer PT 14.0 Sec. (12.2-14.9) 12/10/19 21:20 INR 1.06 (0.87-1.13) 12/10/19 21:20 Abnormal lab findings: Abnormal Labs 11/24/19 11/24/19 11/24/19 02:53 02:53 03:45 WBC 14.3 H RBC Hgb Hct MCHC RDW 17.2 H Lymph % (Auto) [place] % (Auto) [place] # Eos # Seg Neutrophils % Seg Neuts % (Manual) Lymphocytes % (Manual) Monocytes % (Manual) Eosinophils % (Manual) Basophils % (Manual) Seg Neutrophils # Seg Neutrophils # Man 8.3 H Lymphocytes # (Manual) Monocytes # (Manual) 0.9 H Eosinophils # (Manual) Basophils # (Manual) Heparin Anti-Xa Level ABG pH 7.313 L POC ABG pO2 ABG pO2 102.8 H ABG HCO3 ABG O2 Saturation ABG Base Excess -2.9 L ABG Hemoglobin ABG Oxyhemoglobin Oxyhemoglobin 93.9 L Sodium Potassium Chloride Carbon Dioxide BUN Creatinine Glucose 195 H POC Glucose Lactic Acid Calcium Phosphorus Magnesium AST ALT Lactate Dehydrogenase CK-MB (CK-2) 4.3 H C-Reactive Protein NT-Pro-B Natriuret Pep 1181 H Total Protein Albumin Urine WBC (Auto) 11/24/19 11/24/19 11/24/19 04:53 04:53 10:37 WBC RBC Hgb Hct MCHC RDW Lymph % (Auto) [place] % (Auto) [place] # Eos # Seg Neutrophils % Seg Neuts % (Manual) Lymphocytes % (Manual) Monocytes % (Manual) Eosinophils % (Manual) Basophils % (Manual) Seg Neutrophils # Seg Neutrophils # Man Lymphocytes # (Manual) Monocytes # (Manual) Eosinophils # (Manual) Basophils # (Manual) Heparin Anti-Xa Level ABG pH POC ABG pO2 ABG pO2 ABG HCO3 ABG O2 Saturation ABG Base Excess ABG Hemoglobin ABG Oxyhemoglobin Oxyhemoglobin Sodium Potassium Chloride Carbon Dioxide BUN Creatinine Glucose 162 H POC Glucose Lactic Acid 2.40 H* 2.50 H* Calcium Phosphorus Magnesium AST ALT Lactate Dehydrogenase 240 H CK-MB (CK-2) C-Reactive Protein NT-Pro-B Natriuret Pep Total Protein Albumin Urine WBC (Auto) 11/24/19 11/24/19 11/24/19 12:21 14:50 19:54 WBC RBC Hgb Hct MCHC RDW Lymph % (Auto) [place] % (Auto) [place] # Eos # Seg Neutrophils % Seg Neuts % (Manual) Lymphocytes % (Manual) Monocytes % (Manual) Eosinophils % (Manual) Basophils % (Manual) Seg Neutrophils # Seg Neutrophils # Man Lymphocytes # (Manual) Monocytes # (Manual) Eosinophils # (Manual) Basophils # (Manual) Heparin Anti-Xa Level ABG pH POC ABG pO2 ABG pO2 ABG HCO3 ABG O2 Saturation ABG Base Excess ABG Hemoglobin ABG Oxyhemoglobin Oxyhemoglobin Sodium Potassium Chloride Carbon Dioxide BUN Creatinine Glucose POC Glucose 145 H 143 H 124 H Lactic Acid Calcium Phosphorus Magnesium AST ALT Lactate Dehydrogenase CK-MB (CK-2) C-Reactive Protein NT-Pro-B Natriuret Pep Total Protein Albumin Urine WBC (Auto) 11/25/19 11/25/19 11/25/19 00:18 03:18 05:11 WBC 13.7 H RBC Hgb Hct MCHC RDW 17.1 H Lymph % (Auto) 10.8 L [place] % (Auto) 8.7 H [place] # 1.2 H Eos # Seg Neutrophils % 80.2 H Seg Neuts % (Manual) Lymphocytes % (Manual) Monocytes % (Manual) Eosinophils % (Manual) Basophils % (Manual) Seg Neutrophils # 11.0 H Seg Neutrophils # Man Lymphocytes # (Manual) Monocytes # (Manual) Eosinophils # (Manual) Basophils # (Manual) Heparin Anti-Xa Level ABG pH 7.333 L POC ABG pO2 ABG pO2 61.2 L ABG HCO3 ABG O2 Saturation 90.2 L ABG Base Excess ABG Hemoglobin 13.7 L ABG Oxyhemoglobin Oxyhemoglobin 88.2 L Sodium Potassium Chloride Carbon Dioxide BUN Creatinine Glucose POC Glucose 109 H Lactic Acid Calcium Phosphorus Magnesium AST ALT Lactate Dehydrogenase CK-MB (CK-2) C-Reactive Protein NT-Pro-B Natriuret Pep Total Protein Albumin Urine WBC (Auto) 11/25/19 11/25/19 11/26/19 05:11 11:40 03:12 WBC RBC Hgb Hct MCHC RDW Lymph % (Auto) [place] % (Auto) [place] # Eos # Seg Neutrophils % Seg Neuts % (Manual) Lymphocytes % (Manual) Monocytes % (Manual) Eosinophils % (Manual) Basophils % (Manual) Seg Neutrophils # Seg Neutrophils # Man Lymphocytes # (Manual) Monocytes # (Manual) Eosinophils # (Manual) Basophils # (Manual) Heparin Anti-Xa Level ABG pH POC ABG pO2 ABG pO2 155.1 H ABG HCO3 27.8 H ABG O2 Saturation ABG Base Excess ABG Hemoglobin 12.2 L ABG Oxyhemoglobin Oxyhemoglobin Sodium Potassium Chloride Carbon Dioxide BUN 23 H Creatinine Glucose 110 H POC Glucose 108 H Lactic Acid Calcium Phosphorus Magnesium AST ALT Lactate Dehydrogenase CK-MB (CK-2) C-Reactive Protein NT-Pro-B Natriuret Pep Total Protein Albumin Urine WBC (Auto) 11/26/19 11/26/19 11/26/19 06:17 10:43 10:43 WBC 11.4 H RBC Hgb Hct MCHC RDW 17.1 H Lymph % (Auto) [place] % (Auto) [place] # Eos # Seg Neutrophils % Seg Neuts % (Manual) Lymphocytes % (Manual) Monocytes % (Manual) Eosinophils % (Manual) Basophils % (Manual) Seg Neutrophils # Seg Neutrophils # Man Lymphocytes # (Manual) Monocytes # (Manual) Eosinophils # (Manual) Basophils # (Manual) Heparin Anti-Xa Level ABG pH POC ABG pO2 ABG pO2 ABG HCO3 ABG O2 Saturation ABG Base Excess ABG Hemoglobin ABG Oxyhemoglobin Oxyhemoglobin Sodium Potassium Chloride Carbon Dioxide BUN 29 H Creatinine Glucose POC Glucose 107 H Lactic Acid Calcium Phosphorus Magnesium AST ALT Lactate Dehydrogenase CK-MB (CK-2) C-Reactive Protein NT-Pro-B Natriuret Pep Total Protein Albumin Urine WBC (Auto) 11/26/19 11/27/19 11/27/19 17:11 01:53 04:11 WBC RBC Hgb Hct MCHC RDW Lymph % (Auto) [place] % (Auto) [place] # Eos # Seg Neutrophils % Seg Neuts % (Manual) Lymphocytes % (Manual) Monocytes % (Manual) Eosinophils % (Manual) Basophils % (Manual) Seg Neutrophils # Seg Neutrophils # Man Lymphocytes # (Manual) Monocytes # (Manual) Eosinophils # (Manual) Basophils # (Manual) Heparin Anti-Xa Level ABG pH POC ABG pO2 ABG pO2 ABG HCO3 29.2 H ABG O2 Saturation ABG Base Excess 3.4 H ABG Hemoglobin 13.3 L ABG Oxyhemoglobin Oxyhemoglobin 94.5 L Sodium Potassium Chloride Carbon Dioxide BUN Creatinine Glucose POC Glucose 113 H 108 H Lactic Acid Calcium Phosphorus Magnesium AST ALT Lactate Dehydrogenase CK-MB (CK-2) C-Reactive Protein NT-Pro-B Natriuret Pep Total Protein Albumin Urine WBC (Auto) 11/27/19 11/28/19 11/28/19 05:27 05:00 05:25 WBC RBC Hgb Hct MCHC RDW Lymph % (Auto) [place] % (Auto) [place] # Eos # Seg Neutrophils % Seg Neuts % (Manual) Lymphocytes % (Manual) Monocytes % (Manual) Eosinophils % (Manual) Basophils % (Manual) Seg Neutrophils # Seg Neutrophils # Man Lymphocytes # (Manual) Monocytes # (Manual) Eosinophils # (Manual) Basophils # (Manual) Heparin Anti-Xa Level ABG pH POC ABG pO2 68.1 L ABG pO2 ABG HCO3 ABG O2 Saturation ABG Base Excess ABG Hemoglobin ABG Oxyhemoglobin 91.2 L Oxyhemoglobin Sodium Potassium Chloride Carbon Dioxide BUN Creatinine Glucose POC Glucose 111 H 110 H Lactic Acid Calcium Phosphorus Magnesium AST ALT Lactate Dehydrogenase CK-MB (CK-2) C-Reactive Protein NT-Pro-B Natriuret Pep Total Protein Albumin Urine WBC (Auto) 11/28/19 11/28/19 11/28/19 12:08 13:47 13:47 WBC 11.3 H RBC Hgb Hct MCHC RDW 16.1 H Lymph % (Auto) [place] % (Auto) 9.9 H [place] # 1.1 H Eos # Seg Neutrophils % 71.4 H Seg Neuts % (Manual) Lymphocytes % (Manual) Monocytes % (Manual) Eosinophils % (Manual) Basophils % (Manual) Seg Neutrophils # 8.1 H Seg Neutrophils # Man Lymphocytes # (Manual) Monocytes # (Manual) Eosinophils # (Manual) Basophils # (Manual) Heparin Anti-Xa Level ABG pH POC ABG pO2 ABG pO2 ABG HCO3 ABG O2 Saturation ABG Base Excess ABG Hemoglobin ABG Oxyhemoglobin Oxyhemoglobin Sodium Potassium Chloride Carbon Dioxide BUN 23 H Creatinine Glucose 123 H POC Glucose 112 H Lactic Acid Calcium Phosphorus Magnesium AST ALT Lactate Dehydrogenase CK-MB (CK-2) C-Reactive Protein NT-Pro-B Natriuret Pep Total Protein Albumin 3.7 L Urine WBC (Auto) 11/28/19 11/29/19 11/29/19 17:26 03:55 17:04 WBC RBC Hgb Hct MCHC RDW Lymph % (Auto) [place] % (Auto) [place] # Eos # Seg Neutrophils % Seg Neuts % (Manual) Lymphocytes % (Manual) Monocytes % (Manual) Eosinophils % (Manual) Basophils % (Manual) Seg Neutrophils # Seg Neutrophils # Man Lymphocytes # (Manual) Monocytes # (Manual) Eosinophils # (Manual) Basophils # (Manual) Heparin Anti-Xa Level ABG pH POC ABG pO2 ABG pO2 65.7 L ABG HCO3 28.3 H ABG O2 Saturation 93.9 L ABG Base Excess 3.6 H ABG Hemoglobin 13.3 L ABG Oxyhemoglobin Oxyhemoglobin 91.5 L Sodium Potassium Chloride Carbon Dioxide BUN Creatinine Glucose POC Glucose 123 H 119 H Lactic Acid Calcium Phosphorus Magnesium AST ALT Lactate Dehydrogenase CK-MB (CK-2) C-Reactive Protein NT-Pro-B Natriuret Pep Total Protein Albumin Urine WBC (Auto) 11/30/19 11/30/19 11/30/19 04:17 04:17 04:56 WBC 13.4 H RBC Hgb Hct MCHC RDW 15.6 H Lymph % (Auto) [place] % (Auto) [place] # Eos # Seg Neutrophils % Seg Neuts % (Manual) Lymphocytes % (Manual) Monocytes % (Manual) Eosinophils % (Manual) Basophils % (Manual) Seg Neutrophils # Seg Neutrophils # Man Lymphocytes # (Manual) Monocytes # (Manual) Eosinophils # (Manual) Basophils # (Manual) Heparin Anti-Xa Level ABG pH POC ABG pO2 ABG pO2 56.3 L ABG HCO3 29.3 H ABG O2 Saturation 91.5 L ABG Base Excess 4.7 H ABG Hemoglobin 12.1 L ABG Oxyhemoglobin Oxyhemoglobin 89.2 L Sodium 147 H Potassium Chloride Carbon Dioxide BUN 30 H Creatinine Glucose 124 H POC Glucose Lactic Acid Calcium Phosphorus Magnesium AST ALT Lactate Dehydrogenase CK-MB (CK-2) C-Reactive Protein NT-Pro-B Natriuret Pep Total Protein Albumin 3.8 L Urine WBC (Auto) 11/30/19 11/30/19 11/30/19 05:51 11:54 18:17 WBC RBC Hgb Hct MCHC RDW Lymph % (Auto) [place] % (Auto) [place] # Eos # Seg Neutrophils % Seg Neuts % (Manual) Lymphocytes % (Manual) Monocytes % (Manual) Eosinophils % (Manual) Basophils % (Manual) Seg Neutrophils # Seg Neutrophils # Man Lymphocytes # (Manual) Monocytes # (Manual) Eosinophils # (Manual) Basophils # (Manual) Heparin Anti-Xa Level ABG pH POC ABG pO2 ABG pO2 ABG HCO3 ABG O2 Saturation ABG Base Excess ABG Hemoglobin ABG Oxyhemoglobin Oxyhemoglobin Sodium Potassium Chloride Carbon Dioxide BUN Creatinine Glucose POC Glucose 127 H 115 H 143 H Lactic Acid Calcium Phosphorus Magnesium AST ALT Lactate Dehydrogenase CK-MB (CK-2) C-Reactive Protein NT-Pro-B Natriuret Pep Total Protein Albumin Urine WBC (Auto) 12/01/19 12/01/19 12/01/19 01:18 05:22 12:16 WBC RBC Hgb Hct MCHC RDW Lymph % (Auto) [place] % (Auto) [place] # Eos # Seg Neutrophils % Seg Neuts % (Manual) Lymphocytes % (Manual) Monocytes % (Manual) Eosinophils % (Manual) Basophils % (Manual) Seg Neutrophils # Seg Neutrophils # Man Lymphocytes # (Manual) Monocytes # (Manual) Eosinophils # (Manual) Basophils # (Manual) Heparin Anti-Xa Level ABG pH POC ABG pO2 ABG pO2 ABG HCO3 ABG O2 Saturation ABG Base Excess ABG Hemoglobin ABG Oxyhemoglobin Oxyhemoglobin Sodium Potassium 3.5 L Chloride 107.8 H Carbon Dioxide BUN 37 H Creatinine Glucose 157 H POC Glucose 118 H 148 H Lactic Acid Calcium 8.2 L D Phosphorus Magnesium AST 48 H ALT 60 H Lactate Dehydrogenase 194 H CK-MB (CK-2) C-Reactive Protein 8.50 H NT-Pro-B Natriuret Pep Total Protein 5.5 L Albumin 2.8 L Urine WBC (Auto) 12/01/19 12/02/19 12/02/19 18:04 00:05 05:16 WBC 11.4 H RBC Hgb Hct MCHC RDW 15.9 H Lymph % (Auto) [place] % (Auto) 9.9 H [place] # 1.1 H Eos # Seg Neutrophils % 70.3 H Seg Neuts % (Manual) Lymphocytes % (Manual) Monocytes % (Manual) Eosinophils % (Manual) Basophils % (Manual) Seg Neutrophils # 8.0 H Seg Neutrophils # Man Lymphocytes # (Manual) Monocytes # (Manual) Eosinophils # (Manual) Basophils # (Manual) Heparin Anti-Xa Level ABG pH POC ABG pO2 ABG pO2 ABG HCO3 ABG O2 Saturation ABG Base Excess ABG Hemoglobin ABG Oxyhemoglobin Oxyhemoglobin Sodium Potassium Chloride Carbon Dioxide BUN Creatinine Glucose POC Glucose 143 H 107 H Lactic Acid Calcium Phosphorus Magnesium AST ALT Lactate Dehydrogenase CK-MB (CK-2) C-Reactive Protein NT-Pro-B Natriuret Pep Total Protein Albumin Urine WBC (Auto) 12/02/19 12/02/19 12/02/19 05:16 06:03 11:52 WBC RBC Hgb Hct MCHC RDW Lymph % (Auto) [place] % (Auto) [place] # Eos # Seg Neutrophils % Seg Neuts % (Manual) Lymphocytes % (Manual) Monocytes % (Manual) Eosinophils % (Manual) Basophils % (Manual) Seg Neutrophils # Seg Neutrophils # Man Lymphocytes # (Manual) Monocytes # (Manual) Eosinophils # (Manual) Basophils # (Manual) Heparin Anti-Xa Level ABG pH POC ABG pO2 ABG pO2 ABG HCO3 ABG O2 Saturation ABG Base Excess ABG Hemoglobin ABG Oxyhemoglobin Oxyhemoglobin Sodium 146 H Potassium Chloride Carbon Dioxide BUN 28 H Creatinine Glucose 123 H POC Glucose 110 H 152 H Lactic Acid Calcium Phosphorus Magnesium AST ALT Lactate Dehydrogenase CK-MB (CK-2) C-Reactive Protein NT-Pro-B Natriuret Pep Total Protein Albumin Urine WBC (Auto) 12/02/19 12/02/19 12/02/19 12:58 17:58 23:36 WBC RBC Hgb Hct MCHC RDW Lymph % (Auto) [place] % (Auto) [place] # Eos # Seg Neutrophils % Seg Neuts % (Manual) Lymphocytes % (Manual) Monocytes % (Manual) Eosinophils % (Manual) Basophils % (Manual) Seg Neutrophils # Seg Neutrophils # Man Lymphocytes # (Manual) Monocytes # (Manual) Eosinophils # (Manual) Basophils # (Manual) Heparin Anti-Xa Level ABG pH POC ABG pO2 78.1 L ABG pO2 ABG HCO3 ABG O2 Saturation ABG Base Excess ABG Hemoglobin ABG Oxyhemoglobin Oxyhemoglobin Sodium Potassium Chloride Carbon Dioxide BUN Creatinine Glucose POC Glucose 120 H 123 H Lactic Acid Calcium Phosphorus Magnesium AST ALT Lactate Dehydrogenase CK-MB (CK-2) C-Reactive Protein NT-Pro-B Natriuret Pep Total Protein Albumin Urine WBC (Auto) 12/03/19 12/03/19 12/03/19 06:03 06:14 11:46 WBC RBC Hgb Hct MCHC RDW Lymph % (Auto) [place] % (Auto) [place] # Eos # Seg Neutrophils % Seg Neuts % (Manual) Lymphocytes % (Manual) Monocytes % (Manual) Eosinophils % (Manual) Basophils % (Manual) Seg Neutrophils # Seg Neutrophils # Man Lymphocytes # (Manual) Monocytes # (Manual) Eosinophils # (Manual) Basophils # (Manual) Heparin Anti-Xa Level ABG pH POC ABG pO2 ABG pO2 ABG HCO3 ABG O2 Saturation ABG Base Excess ABG Hemoglobin ABG Oxyhemoglobin Oxyhemoglobin Sodium Potassium Chloride Carbon Dioxide BUN Creatinine Glucose POC Glucose 142 H 130 H Lactic Acid Calcium Phosphorus Magnesium AST ALT Lactate Dehydrogenase CK-MB (CK-2) C-Reactive Protein NT-Pro-B Natriuret Pep Total Protein Albumin Urine WBC (Auto) 8.0 H 12/03/19 12/03/19 12/04/19 15:50 17:39 00:04 WBC RBC Hgb Hct MCHC RDW Lymph % (Auto) [place] % (Auto) [place] # Eos # Seg Neutrophils % Seg Neuts % (Manual) Lymphocytes % (Manual) Monocytes % (Manual) Eosinophils % (Manual) Basophils % (Manual) Seg Neutrophils # Seg Neutrophils # Man Lymphocytes # (Manual) Monocytes # (Manual) Eosinophils # (Manual) Basophils # (Manual) Heparin Anti-Xa Level ABG pH POC ABG pO2 ABG pO2 ABG HCO3 ABG O2 Saturation ABG Base Excess ABG Hemoglobin ABG Oxyhemoglobin Oxyhemoglobin Sodium Potassium Chloride Carbon Dioxide BUN Creatinine Glucose POC Glucose 146 H 133 H Lactic Acid Calcium Phosphorus 2.40 L Magnesium AST ALT Lactate Dehydrogenase CK-MB (CK-2) C-Reactive Protein NT-Pro-B Natriuret Pep Total Protein Albumin Urine WBC (Auto) 12/04/19 12/04/19 12/04/19 03:58 03:58 05:22 WBC 12.5 H RBC Hgb 11.2 L Hct 35.2 L MCHC RDW 16.0 H Lymph % (Auto) [place] % (Auto) 9.6 H [place] # 1.2 H Eos # 0.5 H Seg Neutrophils % Seg Neuts % (Manual) Lymphocytes % (Manual) Monocytes % (Manual) Eosinophils % (Manual) Basophils % (Manual) Seg Neutrophils # 8.6 H Seg Neutrophils # Man Lymphocytes # (Manual) Monocytes # (Manual) Eosinophils # (Manual) Basophils # (Manual) Heparin Anti-Xa Level ABG pH POC ABG pO2 ABG pO2 ABG HCO3 ABG O2 Saturation ABG Base Excess ABG Hemoglobin ABG Oxyhemoglobin Oxyhemoglobin Sodium 146 H Potassium Chloride 108.6 H Carbon Dioxide BUN 30 H Creatinine 0.7 L Glucose 121 H POC Glucose 132 H Lactic Acid Calcium Phosphorus Magnesium AST ALT Lactate Dehydrogenase CK-MB (CK-2) C-Reactive Protein NT-Pro-B Natriuret Pep Total Protein Albumin Urine WBC (Auto) 12/04/19 12/04/19 12/05/19 13:26 18:43 00:19 WBC RBC Hgb Hct MCHC RDW Lymph % (Auto) [place] % (Auto) [place] # Eos # Seg Neutrophils % Seg Neuts % (Manual) Lymphocytes % (Manual) Monocytes % (Manual) Eosinophils % (Manual) Basophils % (Manual) Seg Neutrophils # Seg Neutrophils # Man Lymphocytes # (Manual) Monocytes # (Manual) Eosinophils # (Manual) Basophils # (Manual) Heparin Anti-Xa Level ABG pH POC ABG pO2 ABG pO2 ABG HCO3 ABG O2 Saturation ABG Base Excess ABG Hemoglobin ABG Oxyhemoglobin Oxyhemoglobin Sodium Potassium Chloride Carbon Dioxide BUN Creatinine Glucose POC Glucose 185 H 156 H 150 H Lactic Acid Calcium Phosphorus Magnesium AST ALT Lactate Dehydrogenase CK-MB (CK-2) C-Reactive Protein NT-Pro-B Natriuret Pep Total Protein Albumin Urine WBC (Auto) 12/05/19 12/05/19 12/05/19 03:37 03:37 05:14 WBC 16.3 H RBC Hgb 11.4 L Hct MCHC RDW 15.6 H Lymph % (Auto) 9.9 L [place] % (Auto) 9.7 H [place] # 1.6 H Eos # Seg Neutrophils % 78.0 H Seg Neuts % (Manual) Lymphocytes % (Manual) Monocytes % (Manual) Eosinophils % (Manual) Basophils % (Manual) Seg Neutrophils # 12.7 H Seg Neutrophils # Man Lymphocytes # (Manual) Monocytes # (Manual) Eosinophils # (Manual) Basophils # (Manual) Heparin Anti-Xa Level ABG pH POC ABG pO2 ABG pO2 ABG HCO3 ABG O2 Saturation ABG Base Excess ABG Hemoglobin ABG Oxyhemoglobin Oxyhemoglobin Sodium 146 H Potassium Chloride 107.2 H Carbon Dioxide BUN 27 H Creatinine 0.7 L Glucose 171 H POC Glucose 168 H Lactic Acid Calcium Phosphorus Magnesium AST ALT Lactate Dehydrogenase CK-MB (CK-2) C-Reactive Protein NT-Pro-B Natriuret Pep Total Protein Albumin Urine WBC (Auto) 12/05/19 12/05/19 12/05/19 12:31 18:10 23:58 WBC RBC Hgb Hct MCHC RDW Lymph % (Auto) [place] % (Auto) [place] # Eos # Seg Neutrophils % Seg Neuts % (Manual) Lymphocytes % (Manual) Monocytes % (Manual) Eosinophils % (Manual) Basophils % (Manual) Seg Neutrophils # Seg Neutrophils # Man Lymphocytes # (Manual) Monocytes # (Manual) Eosinophils # (Manual) Basophils # (Manual) Heparin Anti-Xa Level ABG pH POC ABG pO2 ABG pO2 ABG HCO3 ABG O2 Saturation ABG Base Excess ABG Hemoglobin ABG Oxyhemoglobin Oxyhemoglobin Sodium Potassium Chloride Carbon Dioxide BUN Creatinine Glucose POC Glucose 159 H 198 H 115 H Lactic Acid Calcium Phosphorus Magnesium AST ALT Lactate Dehydrogenase CK-MB (CK-2) C-Reactive Protein NT-Pro-B Natriuret Pep Total Protein Albumin Urine WBC (Auto) 12/06/19 12/06/19 12/06/19 05:24 05:24 05:25 WBC 14.9 H RBC Hgb 10.8 L Hct 34.0 L MCHC RDW 15.6 H Lymph % (Auto) 10.7 L [place] % (Auto) 8.3 H [place] # 1.2 H Eos # Seg Neutrophils % 78.7 H Seg Neuts % (Manual) Lymphocytes % (Manual) Monocytes % (Manual) Eosinophils % (Manual) Basophils % (Manual) Seg Neutrophils # 11.7 H Seg Neutrophils # Man Lymphocytes # (Manual) Monocytes # (Manual) Eosinophils # (Manual) Basophils # (Manual) Heparin Anti-Xa Level ABG pH POC ABG pO2 ABG pO2 ABG HCO3 ABG O2 Saturation ABG Base Excess ABG Hemoglobin ABG Oxyhemoglobin Oxyhemoglobin Sodium 148 H Potassium 5.1 H Chloride 107.6 H Carbon Dioxide BUN 27 H Creatinine 0.7 L Glucose 155 H POC Glucose 157 H Lactic Acid Calcium Phosphorus Magnesium AST ALT Lactate Dehydrogenase CK-MB (CK-2) C-Reactive Protein NT-Pro-B Natriuret Pep Total Protein Albumin Urine WBC (Auto) 12/07/19 12/07/19 12/07/19 00:13 05:34 11:33 WBC RBC Hgb Hct MCHC RDW Lymph % (Auto) [place] % (Auto) [place] # Eos # Seg Neutrophils % Seg Neuts % (Manual) Lymphocytes % (Manual) Monocytes % (Manual) Eosinophils % (Manual) Basophils % (Manual) Seg Neutrophils # Seg Neutrophils # Man Lymphocytes # (Manual) Monocytes # (Manual) Eosinophils # (Manual) Basophils # (Manual) Heparin Anti-Xa Level ABG pH POC ABG pO2 ABG pO2 ABG HCO3 ABG O2 Saturation ABG Base Excess ABG Hemoglobin ABG Oxyhemoglobin Oxyhemoglobin Sodium Potassium Chloride Carbon Dioxide BUN Creatinine Glucose POC Glucose 142 H 111 H 169 H Lactic Acid Calcium Phosphorus Magnesium AST ALT Lactate Dehydrogenase CK-MB (CK-2) C-Reactive Protein NT-Pro-B Natriuret Pep Total Protein Albumin Urine WBC (Auto) 12/07/19 12/07/19 12/07/19 12:41 13:25 18:19 WBC 12.4 H RBC 3.53 L Hgb 10.2 L Hct 32.1 L MCHC RDW 15.3 H Lymph % (Auto) 10.6 L [place] % (Auto) 7.8 H [place] # 1.0 H Eos # Seg Neutrophils % 77.6 H Seg Neuts % (Manual) Lymphocytes % (Manual) Monocytes % (Manual) Eosinophils % (Manual) Basophils % (Manual) Seg Neutrophils # 9.6 H Seg Neutrophils # Man Lymphocytes # (Manual) Monocytes # (Manual) Eosinophils # (Manual) Basophils # (Manual) Heparin Anti-Xa Level ABG pH POC ABG pO2 ABG pO2 ABG HCO3 ABG O2 Saturation ABG Base Excess ABG Hemoglobin ABG Oxyhemoglobin Oxyhemoglobin Sodium 149 H Potassium Chloride 108.4 H Carbon Dioxide BUN 26 H Creatinine 0.6 L Glucose 149 H POC Glucose 164 H Lactic Acid Calcium Phosphorus Magnesium 2.60 H AST 121 H ALT 145 H Lactate Dehydrogenase CK-MB (CK-2) C-Reactive Protein NT-Pro-B Natriuret Pep Total Protein Albumin 2.6 L Urine WBC (Auto) 12/07/19 12/08/19 12/08/19 22:25 00:02 03:55 WBC 13.3 H RBC 3.40 L Hgb 9.7 L Hct 30.8 L MCHC 31 L RDW 15.5 H Lymph % (Auto) [place] % (Auto) 8.1 H [place] # 1.1 H Eos # Seg Neutrophils % 73.0 H Seg Neuts % (Manual) Lymphocytes % (Manual) Monocytes % (Manual) Eosinophils % (Manual) Basophils % (Manual) Seg Neutrophils # 9.7 H Seg Neutrophils # Man Lymphocytes # (Manual) Monocytes # (Manual) Eosinophils # (Manual) Basophils # (Manual) Heparin Anti-Xa Level 0.12 L ABG pH POC ABG pO2 ABG pO2 ABG HCO3 ABG O2 Saturation ABG Base Excess ABG Hemoglobin ABG Oxyhemoglobin Oxyhemoglobin Sodium Potassium Chloride Carbon Dioxide BUN Creatinine Glucose POC Glucose 151 H Lactic Acid Calcium Phosphorus Magnesium AST ALT Lactate Dehydrogenase CK-MB (CK-2) C-Reactive Protein NT-Pro-B Natriuret Pep Total Protein Albumin Urine WBC (Auto) 12/08/19 12/08/19 12/08/19 03:55 05:21 06:01 WBC RBC Hgb Hct MCHC RDW Lymph % (Auto) [place] % (Auto) [place] # Eos # Seg Neutrophils % Seg Neuts % (Manual) Lymphocytes % (Manual) Monocytes % (Manual) Eosinophils % (Manual) Basophils % (Manual) Seg Neutrophils # Seg Neutrophils # Man Lymphocytes # (Manual) Monocytes # (Manual) Eosinophils # (Manual) Basophils # (Manual) Heparin Anti-Xa Level 0.20 L ABG pH POC ABG pO2 ABG pO2 ABG HCO3 ABG O2 Saturation ABG Base Excess ABG Hemoglobin ABG Oxyhemoglobin Oxyhemoglobin Sodium 149 H Potassium Chloride 108.0 H Carbon Dioxide BUN 28 H Creatinine 0.6 L Glucose 144 H POC Glucose 143 H Lactic Acid Calcium Phosphorus Magnesium AST 98 H ALT 145 H Lactate Dehydrogenase CK-MB (CK-2) C-Reactive Protein NT-Pro-B Natriuret Pep Total Protein 6.0 L Albumin 2.4 L Urine WBC (Auto) 12/08/19 12/08/19 12/08/19 12:08 18:11 23:53 WBC RBC Hgb Hct MCHC RDW Lymph % (Auto) [place] % (Auto) [place] # Eos # Seg Neutrophils % Seg Neuts % (Manual) Lymphocytes % (Manual) Monocytes % (Manual) Eosinophils % (Manual) Basophils % (Manual) Seg Neutrophils # Seg Neutrophils # Man Lymphocytes # (Manual) Monocytes # (Manual) Eosinophils # (Manual) Basophils # (Manual) Heparin Anti-Xa Level ABG pH POC ABG pO2 ABG pO2 ABG HCO3 ABG O2 Saturation ABG Base Excess ABG Hemoglobin ABG Oxyhemoglobin Oxyhemoglobin Sodium Potassium Chloride Carbon Dioxide BUN Creatinine Glucose POC Glucose 172 H 122 H 162 H Lactic Acid Calcium Phosphorus Magnesium AST ALT Lactate Dehydrogenase CK-MB (CK-2) C-Reactive Protein NT-Pro-B Natriuret Pep Total Protein Albumin Urine WBC (Auto) 12/09/19 12/09/19 12/09/19 04:03 04:03 05:53 WBC RBC Hgb 9.1 L Hct 28.9 L MCHC RDW Lymph % (Auto) [place] % (Auto) [place] # Eos # Seg Neutrophils % Seg Neuts % (Manual) Lymphocytes % (Manual) Monocytes % (Manual) Eosinophils % (Manual) Basophils % (Manual) Seg Neutrophils # Seg Neutrophils # Man Lymphocytes # (Manual) Monocytes # (Manual) Eosinophils # (Manual) Basophils # (Manual) Heparin Anti-Xa Level 0.15 L ABG pH POC ABG pO2 ABG pO2 ABG HCO3 ABG O2 Saturation ABG Base Excess ABG Hemoglobin ABG Oxyhemoglobin Oxyhemoglobin Sodium Potassium Chloride Carbon Dioxide BUN Creatinine Glucose POC Glucose 124 H Lactic Acid Calcium Phosphorus Magnesium AST ALT Lactate Dehydrogenase CK-MB (CK-2) C-Reactive Protein NT-Pro-B Natriuret Pep Total Protein Albumin Urine WBC (Auto) 12/09/19 12/09/19 12/10/19 09:43 12:41 00:13 WBC RBC Hgb Hct MCHC RDW Lymph % (Auto) [place] % (Auto) [place] # Eos # Seg Neutrophils % Seg Neuts % (Manual) Lymphocytes % (Manual) Monocytes % (Manual) Eosinophils % (Manual) Basophils % (Manual) Seg Neutrophils # Seg Neutrophils # Man Lymphocytes # (Manual) Monocytes # (Manual) Eosinophils # (Manual) Basophils # (Manual) Heparin Anti-Xa Level ABG pH POC ABG pO2 ABG pO2 ABG HCO3 ABG O2 Saturation ABG Base Excess ABG Hemoglobin ABG Oxyhemoglobin Oxyhemoglobin Sodium Potassium Chloride Carbon Dioxide BUN 25 H Creatinine 0.6 L Glucose 131 H POC Glucose 109 H 120 H Lactic Acid Calcium Phosphorus Magnesium AST ALT Lactate Dehydrogenase CK-MB (CK-2) C-Reactive Protein NT-Pro-B Natriuret Pep Total Protein Albumin Urine WBC (Auto) 09/12/10/19 12/10/19 04:14 04:14 12:00 WBC 13.3 H RBC 3.34 L Hgb 9.6 L Hct 30.4 L MCHC RDW 15.4 H Lymph % (Auto) [place] % (Auto) [place] # Eos # Seg Neutrophils % Seg Neuts % (Manual) 75.0 H Lymphocytes % (Manual) 13.0 L Monocytes % (Manual) 8.0 H Eosinophils % (Manual) Basophils % (Manual) 2.0 H Seg Neutrophils # Seg Neutrophils # Man 10.0 H Lymphocytes # (Manual) Monocytes # (Manual) 1.1 H Eosinophils # (Manual) Basophils # (Manual) 0.3 H Heparin Anti-Xa Level ABG pH POC ABG pO2 ABG pO2 ABG HCO3 ABG O2 Saturation ABG Base Excess ABG Hemoglobin ABG Oxyhemoglobin Oxyhemoglobin Sodium 147 H Potassium Chloride 108.3 H Carbon Dioxide BUN 21 H Creatinine 0.6 L Glucose 104 H POC Glucose 133 H Lactic Acid Calcium Phosphorus Magnesium AST ALT Lactate Dehydrogenase CK-MB (CK-2) C-Reactive Protein NT-Pro-B Natriuret Pep Total Protein Albumin Urine WBC (Auto) 12/10/19 12/10/19 12/11/19 18:44 21:20 00:08 WBC 14.9 H RBC 3.36 L Hgb 9.6 L Hct 30.5 L MCHC RDW 15.4 H Lymph % (Auto) [place] % (Auto) [place] # Eos # Seg Neutrophils % Seg Neuts % (Manual) Lymphocytes % (Manual) Monocytes % (Manual) Eosinophils % (Manual) Basophils % (Manual) Seg Neutrophils # Seg Neutrophils # Man Lymphocytes # (Manual) Monocytes # (Manual) Eosinophils # (Manual) Basophils # (Manual) Heparin Anti-Xa Level ABG pH POC ABG pO2 ABG pO2 ABG HCO3 ABG O2 Saturation ABG Base Excess ABG Hemoglobin ABG Oxyhemoglobin Oxyhemoglobin Sodium Potassium Chloride Carbon Dioxide BUN Creatinine Glucose POC Glucose 119 H 134 H Lactic Acid Calcium Phosphorus Magnesium AST ALT Lactate Dehydrogenase CK-MB (CK-2) C-Reactive Protein NT-Pro-B Natriuret Pep Total Protein Albumin Urine WBC (Auto) 12/11/19 12/11/19 12/11/19 03:54 07:28 08:36 WBC 11.9 H RBC 3.25 L Hgb 9.6 L Hct 29.2 L MCHC RDW 15.7 H Lymph % (Auto) [place] % (Auto) [place] # Eos # Seg Neutrophils % Seg Neuts % (Manual) Lymphocytes % (Manual) Monocytes % (Manual) Eosinophils % (Manual) Basophils % (Manual) Seg Neutrophils # Seg Neutrophils # Man Lymphocytes # (Manual) Monocytes # (Manual) Eosinophils # (Manual) Basophils # (Manual) Heparin Anti-Xa Level 0.10 L 0.16 L ABG pH POC ABG pO2 ABG pO2 ABG HCO3 ABG O2 Saturation ABG Base Excess ABG Hemoglobin ABG Oxyhemoglobin Oxyhemoglobin Sodium Potassium Chloride Carbon Dioxide BUN Creatinine Glucose POC Glucose Lactic Acid Calcium Phosphorus Magnesium AST ALT Lactate Dehydrogenase CK-MB (CK-2) C-Reactive Protein NT-Pro-B Natriuret Pep Total Protein Albumin Urine WBC (Auto) 12/11/19 12/11/19 12/11/19 08:36 11:45 17:15 WBC RBC Hgb Hct MCHC RDW Lymph % (Auto) [place] % (Auto) [place] # Eos # Seg Neutrophils % Seg Neuts % (Manual) Lymphocytes % (Manual) Monocytes % (Manual) Eosinophils % (Manual) Basophils % (Manual) Seg Neutrophils # Seg Neutrophils # Man Lymphocytes # (Manual) Monocytes # (Manual) Eosinophils # (Manual) Basophils # (Manual) Heparin Anti-Xa Level ABG pH POC ABG pO2 ABG pO2 ABG HCO3 ABG O2 Saturation ABG Base Excess ABG Hemoglobin ABG Oxyhemoglobin Oxyhemoglobin Sodium Potassium Chloride Carbon Dioxide BUN Creatinine 0.5 L Glucose 128 H POC Glucose 136 H 109 H Lactic Acid Calcium Phosphorus Magnesium AST ALT Lactate Dehydrogenase CK-MB (CK-2) C-Reactive Protein NT-Pro-B Natriuret Pep Total Protein Albumin Urine WBC (Auto) 12/12/19 12/12/19 12/12/19 00:03 05:53 05:53 WBC RBC Hgb 8.8 L Hct 27.6 L MCHC RDW Lymph % (Auto) [place] % (Auto) [place] # Eos # Seg Neutrophils % Seg Neuts % (Manual) Lymphocytes % (Manual) Monocytes % (Manual) Eosinophils % (Manual) Basophils % (Manual) Seg Neutrophils # Seg Neutrophils # Man Lymphocytes # (Manual) Monocytes # (Manual) Eosinophils # (Manual) Basophils # (Manual) Heparin Anti-Xa Level 0.22 L ABG pH POC ABG pO2 ABG pO2 ABG HCO3 ABG O2 Saturation ABG Base Excess ABG Hemoglobin ABG Oxyhemoglobin Oxyhemoglobin Sodium Potassium Chloride Carbon Dioxide BUN Creatinine Glucose POC Glucose 116 H Lactic Acid Calcium Phosphorus Magnesium AST ALT Lactate Dehydrogenase CK-MB (CK-2) C-Reactive Protein NT-Pro-B Natriuret Pep Total Protein Albumin Urine WBC (Auto) 12/12/19 12/12/19 12/12/19 09:38 12:18 17:44 WBC RBC Hgb Hct MCHC RDW Lymph % (Auto) [place] % (Auto) [place] # Eos # Seg Neutrophils % Seg Neuts % (Manual) Lymphocytes % (Manual) Monocytes % (Manual) Eosinophils % (Manual) Basophils % (Manual) Seg Neutrophils # Seg Neutrophils # Man Lymphocytes # (Manual) Monocytes # (Manual) Eosinophils # (Manual) Basophils # (Manual) Heparin Anti-Xa Level ABG pH POC ABG pO2 ABG pO2 ABG HCO3 ABG O2 Saturation ABG Base Excess ABG Hemoglobin ABG Oxyhemoglobin Oxyhemoglobin Sodium Potassium Chloride Carbon Dioxide BUN Creatinine Glucose POC Glucose 115 H 146 H 146 H Lactic Acid Calcium Phosphorus Magnesium AST ALT Lactate Dehydrogenase CK-MB (CK-2) C-Reactive Protein NT-Pro-B Natriuret Pep Total Protein Albumin Urine WBC (Auto) 12/12/19 12/13/19 12/13/19 23:33 05:32 05:32 WBC 13.1 H RBC 3.27 L Hgb 9.5 L Hct 29.3 L MCHC RDW 15.6 H Lymph % (Auto) [place] % (Auto) [place] # Eos # Seg Neutrophils % Seg Neuts % (Manual) 74.0 H Lymphocytes % (Manual) 8.0 L Monocytes % (Manual) 9.0 H Eosinophils % (Manual) 5.0 H Basophils % (Manual) Seg Neutrophils # Seg Neutrophils # Man 9.7 H Lymphocytes # (Manual) 1.0 L Monocytes # (Manual) 1.2 H Eosinophils # (Manual) 0.7 H Basophils # (Manual) Heparin Anti-Xa Level 0.20 L ABG pH POC ABG pO2 ABG pO2 ABG HCO3 ABG O2 Saturation ABG Base Excess ABG Hemoglobin ABG Oxyhemoglobin Oxyhemoglobin Sodium Potassium Chloride Carbon Dioxide BUN Creatinine Glucose POC Glucose 126 H Lactic Acid Calcium Phosphorus Magnesium AST ALT Lactate Dehydrogenase CK-MB (CK-2) C-Reactive Protein NT-Pro-B Natriuret Pep Total Protein Albumin Urine WBC (Auto) 12/13/19 12/13/19 12/13/19 05:32 05:46 11:57 WBC RBC Hgb Hct MCHC RDW Lymph % (Auto) [place] % (Auto) [place] # Eos # Seg Neutrophils % Seg Neuts % (Manual) Lymphocytes % (Manual) Monocytes % (Manual) Eosinophils % (Manual) Basophils % (Manual) Seg Neutrophils # Seg Neutrophils # Man Lymphocytes # (Manual) Monocytes # (Manual) Eosinophils # (Manual) Basophils # (Manual) Heparin Anti-Xa Level ABG pH POC ABG pO2 ABG pO2 ABG HCO3 ABG O2 Saturation ABG Base Excess ABG Hemoglobin ABG Oxyhemoglobin Oxyhemoglobin Sodium Potassium Chloride Carbon Dioxide 31 H BUN Creatinine 0.6 L Glucose 114 H POC Glucose 118 H 133 H Lactic Acid Calcium Phosphorus Magnesium AST ALT Lactate Dehydrogenase CK-MB (CK-2) C-Reactive Protein NT-Pro-B Natriuret Pep Total Protein Albumin Urine WBC (Auto) 12/13/19 12/13/19 12/14/19 17:44 23:46 05:32 WBC RBC Hgb Hct MCHC RDW Lymph % (Auto) [place] % (Auto) [place] # Eos # Seg Neutrophils % Seg Neuts % (Manual) Lymphocytes % (Manual) Monocytes % (Manual) Eosinophils % (Manual) Basophils % (Manual) Seg Neutrophils # Seg Neutrophils # Man Lymphocytes # (Manual) Monocytes # (Manual) Eosinophils # (Manual) Basophils # (Manual) Heparin Anti-Xa Level ABG pH POC ABG pO2 ABG pO2 ABG HCO3 ABG O2 Saturation ABG Base Excess ABG Hemoglobin ABG Oxyhemoglobin Oxyhemoglobin Sodium Potassium Chloride Carbon Dioxide BUN Creatinine Glucose POC Glucose 161 H 126 H 139 H Lactic Acid Calcium Phosphorus Magnesium AST ALT Lactate Dehydrogenase CK-MB (CK-2) C-Reactive Protein NT-Pro-B Natriuret Pep Total Protein Albumin Urine WBC (Auto) 12/14/19 12/14/19 12/14/19 06:03 06:03 09:37 WBC RBC Hgb 9.6 L Hct 30.4 L MCHC RDW Lymph % (Auto) [place] % (Auto) [place] # Eos # Seg Neutrophils % Seg Neuts % (Manual) Lymphocytes % (Manual) Monocytes % (Manual) Eosinophils % (Manual) Basophils % (Manual) Seg Neutrophils # Seg Neutrophils # Man Lymphocytes # (Manual) Monocytes # (Manual) Eosinophils # (Manual) Basophils # (Manual) Heparin Anti-Xa Level 0.24 L ABG pH POC ABG pO2 ABG pO2 ABG HCO3 ABG O2 Saturation ABG Base Excess ABG Hemoglobin ABG Oxyhemoglobin Oxyhemoglobin Sodium Potassium Chloride Carbon Dioxide BUN Creatinine 0.6 L Glucose 162 H POC Glucose Lactic Acid Calcium Phosphorus Magnesium AST 71 H ALT 118 H Lactate Dehydrogenase CK-MB (CK-2) C-Reactive Protein NT-Pro-B Natriuret Pep Total Protein 6.2 L Albumin 2.3 L Urine WBC (Auto) 12/14/19 12/14/19 12/15/19 12:06 18:18 00:19 WBC RBC Hgb Hct MCHC RDW Lymph % (Auto) [place] % (Auto) [place] # Eos # Seg Neutrophils % Seg Neuts % (Manual) Lymphocytes % (Manual) Monocytes % (Manual) Eosinophils % (Manual) Basophils % (Manual) Seg Neutrophils # Seg Neutrophils # Man Lymphocytes # (Manual) Monocytes # (Manual) Eosinophils # (Manual) Basophils # (Manual) Heparin Anti-Xa Level ABG pH POC ABG pO2 ABG pO2 ABG HCO3 ABG O2 Saturation ABG Base Excess ABG Hemoglobin ABG Oxyhemoglobin Oxyhemoglobin Sodium Potassium Chloride Carbon Dioxide BUN Creatinine Glucose POC Glucose 147 H 166 H 123 H Lactic Acid Calcium Phosphorus Magnesium AST ALT Lactate Dehydrogenase CK-MB (CK-2) C-Reactive Protein NT-Pro-B Natriuret Pep Total Protein Albumin Urine WBC (Auto) 12/15/19 12/15/19 12/15/19 05:28 05:29 05:29 WBC 14.9 H RBC 3.19 L Hgb 9.1 L Hct 28.7 L MCHC RDW 16.0 H Lymph % (Auto) [place] % (Auto) [place] # Eos # Seg Neutrophils % Seg Neuts % (Manual) Lymphocytes % (Manual) Monocytes % (Manual) Eosinophils % (Manual) Basophils % (Manual) Seg Neutrophils # Seg Neutrophils # Man Lymphocytes # (Manual) Monocytes # (Manual) Eosinophils # (Manual) Basophils # (Manual) Heparin Anti-Xa Level 0.19 L ABG pH POC ABG pO2 ABG pO2 ABG HCO3 ABG O2 Saturation ABG Base Excess ABG Hemoglobin ABG Oxyhemoglobin Oxyhemoglobin Sodium Potassium Chloride Carbon Dioxide BUN Creatinine 0.6 L Glucose 110 H POC Glucose Lactic Acid Calcium Phosphorus Magnesium AST ALT Lactate Dehydrogenase CK-MB (CK-2) C-Reactive Protein NT-Pro-B Natriuret Pep Total Protein Albumin Urine WBC (Auto) 12/15/19 12/15/19 12/15/19 05:53 11:50 17:26 WBC RBC Hgb Hct MCHC RDW Lymph % (Auto) [place] % (Auto) [place] # Eos # Seg Neutrophils % Seg Neuts % (Manual) Lymphocytes % (Manual) Monocytes % (Manual) Eosinophils % (Manual) Basophils % (Manual) Seg Neutrophils # Seg Neutrophils # Man Lymphocytes # (Manual) Monocytes # (Manual) Eosinophils # (Manual) Basophils # (Manual) Heparin Anti-Xa Level ABG pH POC ABG pO2 ABG pO2 ABG HCO3 ABG O2 Saturation ABG Base Excess ABG Hemoglobin ABG Oxyhemoglobin Oxyhemoglobin Sodium Potassium Chloride Carbon Dioxide BUN Creatinine Glucose POC Glucose 119 H 132 H 128 H Lactic Acid Calcium Phosphorus Magnesium AST ALT Lactate Dehydrogenase CK-MB (CK-2) C-Reactive Protein NT-Pro-B Natriuret Pep Total Protein Albumin Urine WBC (Auto) 12/15/19 12/16/19 12/16/19 23:11 05:30 05:46 WBC RBC Hgb 8.8 L Hct 27.9 L MCHC RDW Lymph % (Auto) [place] % (Auto) [place] # Eos # Seg Neutrophils % Seg Neuts % (Manual) Lymphocytes % (Manual) Monocytes % (Manual) Eosinophils % (Manual) Basophils % (Manual) Seg Neutrophils # Seg Neutrophils # Man Lymphocytes # (Manual) Monocytes # (Manual) Eosinophils # (Manual) Basophils # (Manual) Heparin Anti-Xa Level ABG pH POC ABG pO2 ABG pO2 ABG HCO3 ABG O2 Saturation ABG Base Excess ABG Hemoglobin ABG Oxyhemoglobin Oxyhemoglobin Sodium Potassium Chloride Carbon Dioxide BUN Creatinine Glucose POC Glucose 150 H 134 H Lactic Acid Calcium Phosphorus Magnesium AST ALT Lactate Dehydrogenase CK-MB (CK-2) C-Reactive Protein NT-Pro-B Natriuret Pep Total Protein Albumin Urine WBC (Auto) 12/16/19 12/16/19 05:46 05:46 WBC RBC Hgb Hct MCHC RDW Lymph % (Auto) [place] % (Auto) [place] # Eos # Seg Neutrophils % Seg Neuts % (Manual) Lymphocytes % (Manual) Monocytes % (Manual) Eosinophils % (Manual) Basophils % (Manual) Seg Neutrophils # Seg Neutrophils # Man Lymphocytes # (Manual) Monocytes # (Manual) Eosinophils # (Manual) Basophils # (Manual) Heparin Anti-Xa Level 0.20 L ABG pH POC ABG pO2 ABG pO2 ABG HCO3 ABG O2 Saturation ABG Base Excess ABG Hemoglobin ABG Oxyhemoglobin Oxyhemoglobin Sodium Potassium Chloride Carbon Dioxide 31 H BUN Creatinine 0.5 L Glucose 147 H POC Glucose Lactic Acid Calcium Phosphorus Magnesium AST ALT Lactate Dehydrogenase CK-MB (CK-2) C-Reactive Protein NT-Pro-B Natriuret Pep Total Protein Albumin Urine WBC (Auto) Allied health notes reviewed: nursing
[2019-12-16] MEDS ORDERED: FUROSEMIDE 40 MG/4 ML INJ IV SCH (09:00)
[2019-12-16] MEDS: FAMOTIDINE 20 MG TAB PO SCH ×2 (10:10→21:46)
[2019-12-16] MEDS: QUEtiapine 25 MG TAB PO SCH (10:11)
[2019-12-16] MEDS: DOCUSATE SODIUM 100 MG/10 ML ORAL LIQD FEEDTUBE SCH ×2 (10:11→21:45)
[2019-12-16] MEDS: AMIODARONE 200 MG TAB PO SCH ×2 (10:11→21:45)
--- NOTE | 2019-12-16 10:51 | Progress Note ---
Assessment and Plan Transient Afib after CPAP trial currently in sinus rhythm Ischemic Cardiomyopathy, resolving re-echo this presentation reports an LVEF 40-45%. echo 08/2018: decreased LVEF 20-25%. Hx of CAD [facility] 12/2018: mild in-stent restenosis. No significant residual disease. Multifocal pneumonia with intermittent fevers negative COVID-19 test x 2 Respiratory failure Acute PE/DVT on IV heparin Recommendations: Continue amiodarone and metoprolol for suppression of paroxysmal atrial fibrillation. Otherwise, conservative cardiac management. Subjective Date of service: 12/16/19 Principal diagnosis: Ac hypoxemic resp failure; Pneumonia; PUI COVID-19; CHF; COPD; HTN Interval history: Remains intubated on the vent. Stable sinus rhythm on telemetry. Objective Vital Signs Temp Pulse Pulse Resp BP Pulse Ox 12/16/19 09:01 87 14 128/99 85 12/16/19 08:32 82 113/77 94 12/16/19 08:31 83 14 113/77 94 12/16/19 08:00 98.3 F 78 77 13 113/77 92 12/16/19 07:31 73 13 109/77 95 12/16/19 07:00 77 16 109/77 93 12/16/19 06:30 80 13 114/78 94 12/16/19 06:00 78 13 114/78 94 12/16/19 05:31 79 12 122/83 95 12/16/19 05:23 81 122/83 12/16/19 05:02 82 122/83 97 12/16/19 05:00 82 14 122/83 93 12/16/19 04:31 81 13 130/83 97 12/16/19 04:00 83 139 H 13 130/83 91 12/16/19 03:38 99.7 F H 12/16/19 03:30 80 12 139/86 94 12/16/19 03:00 83 14 139/86 94 12/16/19 02:31 79 14 134/87 96 12/16/19 02:00 82 16 138/87 93 12/16/19 01:31 81 14 134/87 95 12/16/19 01:00 81 14 134/87 93 12/16/19 00:31 81 14 139/84 95 12/16/19 00:00 81 139 H 14 132/85 92 12/15/19 23:39 81 139/84 96 12/15/19 23:38 100.3 F H 12/15/19 23:31 81 15 139/84 95 12/15/19 23:15 81 15 139/84 95 12/15/19 23:00 83 15 139/84 91 12/15/19 22:31 86 15 171/99 93 12/15/19 22:00 93 H 16 143/93 92 12/15/19 21:31 105 H 20 191/131 92 12/15/19 21:14 129 H 171/99 12/15/19 21:00 154 H 24 191/131 85 12/15/19 20:31 141 H 27 H 215/127 77 L 12/15/19 20:01 139 H 29 H 148/94 98 12/15/19 20:00 99.1 F 139 H 139 H 29 H 98 12/15/19 19:56 136 H 148/94 99 12/15/19 19:31 83 15 148/94 98 12/15/19 19:00 89 15 148/94 91 12/15/19 18:31 88 16 138/91 98 12/15/19 18:00 88 15 138/91 95 12/15/19 17:31 85 16 143/81 98 12/15/19 17:00 81 9 L 143/81 92 12/15/19 16:31 88 14 96 12/15/19 16:00 98.3 F 76 83 13 135/88 91 12/15/19 15:40 78 132/81 98 12/15/19 15:31 75 13 132/81 95 12/15/19 15:00 80 13 132/81 92 12/15/19 14:31 89 20 144/95 95 12/15/19 14:00 97 H 19 144/95 95 12/15/19 13:31 86 17 145/97 95 12/15/19 13:10 102 H 145/97 12/15/19 13:00 97 H 17 145/97 96 12/15/19 12:50 85 97 12/15/19 12:31 91 H 12 124/72 95 12/15/19 12:00 98.3 F 86 89 12 140/99 96 12/15/19 11:31 79 13 124/72 95 12/15/19 11:00 79 15 124/72 91 - Physical Examination General: Other (intubated on the vent) Cardiac: Positive: Reg Rate and Rhythm - Labs and Meds CBC 12/16/19 Range/Units 05:46 Hgb 8.8 L (11.8-15.2) gm/dl Hct 27.9 L (35.5-45.6) % Plt Count 311 (140-440) K/mm3 Comprehensive Metabolic Panel 12/16/19 Range/Units 05:46 Sodium 138 (137-145) mmol/L Potassium 4.4 (3.6-5.0) mmol/L Chloride 98.9 (98-107) mmol/L Carbon Dioxide 31 H (22-30) mmol/L BUN 16 (9-20) mg/dL Creatinine 0.5 L (0.8-1.3) mg/dL Glucose 147 H (75-100) mg/dL Calcium 9.0 (8.4-10.2) mg/dL - Allied health notes Allied health notes reviewed: nursing
--- NOTE | 2019-12-16 11:10 | Progress Note ---
Assessment and Plan Cultures: Blood culture 12/02/2019 negative Blood culture 11/24/2019 negative Urine culture 11/24/2019 negative COVID-19 negative x2 12/04/2019 resp culture: PsA 12/06/2019 blood cultures: No growth today A/P: 64-year-old male past medical history hypertension, COPD, CAD, CHF with reduced ejection fraction admitted with acute hypoxic respiratory failure likely secondary to pneumonia #Sepsis: With persistent low-grade fever 100, likely due to PE/DVT. Procalcitonin improving, from 1.5-->0.6. #Acute hypoxemic respiratory failure: Likely secondary to pneumonia/PE, COVID-19 testing negative x 2. Remains intubated, on CPAP trial #Bilateral pneumonia: COVID-19 negative twice. Culture growing Pseudomonas, pansensitive. Repeat chest x-ray with persistent right base opacity. CT shows PE. #CHF: per primary team #COPD: per pulmonary #Elevated LFTs: Improving? sepsis. US unremarkable GB #PE/right DVT: on heparin gtt #Urinary retention: Overnight patient did not void, bladder scan showed 700 cc, Hoffman placed 12/15/2019. Recs: -Monitor off antibiotics -PE/DVT per primary team will follow MD [facility] ([facility]) Office [phone] Subjective Date of service: 12/16/19 Principal diagnosis: Ac hypoxemic resp failure; Pneumonia; PUI COVID-19; CHF; COPD; HTN Interval history: Remains intubated, on the ventilator, temperature 100.3 Objective - Exam Narrative Exam: Constitutional: Alert intubated Head, Ears, Nose: Normocephalic, atraumatic. External ears, nose normal Oral: ETT in place, OG tube in place Eyes: Conjunctivae/corneas clear. No icterus. No ptosis. Neck: Supple, no meningeal signs Cardiovascular: RRR Respiratory: diminished GI: Soft, non-tender; bowel sounds normal. No peritoneal signs Musculoskeletal: Left hand swelling left arm with swelling Skin: No rash or abscess Hem/Lymphatic: No palpable cervical or supraclavicular nodes. No lymphangitis Psych: Alert Neurological: Alert Hoffman in place - Constitutional Vitals: Vital Signs Temp Pulse Resp BP Pulse Ox 98.3 F 87 14 128/99 85 12/16/19 08:00 12/16/19 09:01 12/16/19 09:01 12/16/19 09:01 12/16/19 09:01 Temperature -Last 24 Hours Temperature 98.3 F Temperature 99.7 F Temperature 100.3 F Temperature 99.1 F Temperature 98.3 F Temperature 98.3 F - Labs CBC & Chem 7: 12/16/19 05:46 12/16/19 05:46 Labs: Abnormal lab results 12/15/19 12/15/19 12/15/19 Range/Units 11:50 17:26 23:11 Hgb (11.8-15.2) gm/dl Hct (35.5-45.6) % Heparin Anti-Xa Level (0.3-0.7) U.I./ml Carbon Dioxide (22-30) mmol/L Creatinine (0.8-1.3) mg/dL Glucose (75-100) mg/dL POC Glucose 132 H 128 H 150 H (70-105) 12/16/19 12/16/19 12/16/19 Range/Units 05:30 05:46 05:46 Hgb 8.8 L (11.8-15.2) gm/dl Hct 27.9 L (35.5-45.6) % Heparin Anti-Xa Level 0.20 L (0.3-0.7) U.I./ml Carbon Dioxide (22-30) mmol/L Creatinine (0.8-1.3) mg/dL Glucose (75-100) mg/dL POC Glucose 134 H (70-105) 12/16/19 Range/Units 05:46 Hgb (11.8-15.2) gm/dl Hct (35.5-45.6) % Heparin Anti-Xa Level (0.3-0.7) U.I./ml Carbon Dioxide 31 H (22-30) mmol/L Creatinine 0.5 L (0.8-1.3) mg/dL Glucose 147 H (75-100) mg/dL POC Glucose (70-105)
[2019-12-16] MEDS: HEPARIN/ 0.45% NACL DRIP 25,000 UNIT/500 ML BAG IV SCH (13:11)
--- NOTE | 2019-12-16 16:08 | Progress Note ---
Assessment and Plan -Acute LLL PE -Acute RLE DVT -Persistent fevers; secondary to sepsis and acute PE/DVT -Severe sepsis; secondary to bilateral pneumonia, persistent fevers -Acute hypoxemic respiratory failure, on vent unable to wean -Bilateral pneumonia, community acquired, -Aspiration Pneumonia -Sustained SVT, on amiodarone -Acute on chronic systolic congestive heart failure -History of cerebrovascular accident. -Tobacco use disorder -Alcohol abuse with DT -Acute chronic obstructive pulmonary disease exacerbation. -Hypertension and hypertensive urgency at presentation. -History of arthritis. -Paroxysmal atrial fibrillation -Leukocytosis with possible sepsis. -Lactic acidosis. -Bleeding from ET tube -Oropharyngeal dysphagia -S/P Knee surgery -History of peptic Ulcer Surgery -DVT prophylaxis COVID-19 test; 11/24/2019; negative 11/26/2019; negative Plan Continue ventilatory support, Wean as tolerated and extubate., Pulmonary critical care following Completed abx, ID following Continue anti-failure medications, cardiology following cont Steroids, Continue diuresis as needed Aspiration precautions Continue amiodarone and metoprolol for suppression of paroxysmal atrial fibrillation. Anticoagulation currently is with intravenous heparin - was brefly on hold for bleeding from ET tube DVT/GI prophy Heparin/Protonix Plan of care reviewed with the patient's nurse Closely monitor the patient and adjust management as needed The high probability of a clinically significant, sudden or life threatening deterioration of the [Respiratory, cardiovascular & neurological] system(s) required my full and direct attention, intervention and personal management. The aggregate critical care time was [33] minutes without overlap. Time includes spent on [x] Data Review and interpretation [x] Patient assessment and monitoring of vital signs [x] Documentation [x] Medication orders and management Brief History Patient is a 64-year-old male with known history of hypertension, COPD, history of coronary artery disease, CHF with ejection fraction of 20 to 25% in August 2018 presenting to the emergency room via EMS complaining of shortness of breath. Patient was found to be hypoxic and in respiratory distress. Patient was placed on CPAP in route to the hospital. Oxygen saturation was said to be 88%. Started on Solu-Medrol, Lasix and magnesium in ED, patient was also found to be lethargic with an oxygen saturation of about 91% on CPAP. He was subsequently intubated. Work-up in the emergency room including chest x-ray reveals bilateral pneumonia. He had an elevated white count of 14 and also had an elevated BNP. Patient to be admitted to the ICU and placed on empiric IV antibiotics for pneumonia. He will also be tested positive for COVID-19 and placed on isolation precautions. Rmains intubated on ventilatory support, sputum cultures positive for Pseudomonas, ID changed antibiotics to cefepime and Vanco. 11/25: Leukocytosis improving. Continue current management anticipate extubation possible today. 11/26. Still intubated. Failed SBT yesterday. Repeat COVID-19 test is negative. 11/27. CT head ordered for possible neuro status change is negative. More responsive as the day progressed as per RN. Chest xray today shows interval improvement. He is still on antibiotics - will complete regimen today. 11/28: Considering difficult extubation and severe cardiomyopathy, will obtain cardiology consult. Aspiration precautions, tube feeds held, continue antibiotics. 11/29: Still with intermittent fever but improving imaging, continue diuresis. 11/30; Extremely agitated when placed on PSV- SVT, hypertension. Patiet acknowledged that he drinks. IV Ativan given, CIWA protocol initiated. 12 lead ordered showed SVT, one dose of amiodarone ordered. continue to follow up cardiology recommendation 12/01: Patient remains on mechanical ventilation, getting SBT trial. Remains in SVT, started on amiodarone drip by cardiology. 12/02; patient is on mechanical ventilation and on spontaneous breathing trial. Cardiology started the patient on PO amiodarone. Patient is on cefepime. 12/03: patient is on mechanical ventilation. Cardiology started the patient on PO amiodarone for SVT. Patient is on cefepime, no fever overnight. 12/04: Patient is sedated and on mechanical ventilation. Patient had fever yesterday afternoon 102.3, ID changed his cefepime to meropenem. Heart rate is controlled, cardiology is following. Patient has paroxysmal atrial fibrillation and on amiodarone and metoprolol, subcu heparin for anticoagulation and will need oral anticoagulation once stable. 12/05: Sputum cultures positive for Pseudomonas, ID following 12/06; patient is febrile T-max 24 hours 102 F ,ID change antibiotics to cefepime and Vancomycin 12/07: resumed care. Na 149 today, start on 1/2 NS. cont current care 12/08: remains in a stable sinus rhythm and stable blood pressure, continue supportive care. wean off vent as tolerated. persistent fever - ordered CTA chest 12/09: noted bloody discharges from ET tube last night. CTA and LE venous doppler positive for acute PE and DVT. resume heparin drip, consult vascular for possible EKOS/ IVC filter. monitor h/h. cont SBT trial, wean off vent as tolerated. called but no answer 12/10: cont heparin drip for acute PE and DVT, follow vascular recommendation. monitor h/h, wean off vent as tolerated 12/11: o/n had bleeding from ET tube, cont to monitor h/h. vascular recommending medical Mx. called ; Nicolle Araiza [phone]. 12/12: H&H remained stable, patient on heparin drip. Discussed with yesterday. Discussed with critical care attending. Patient not tolerating SBT trial. Continue to wean off from vent as tolerated, follow clinically. Tolerating tube feeding 12/13: Continue heparin drip, wean off from vent as tolerated. Discussed with pulmonary attending if no improvement by the end of 3 weeks of intubation patient may need trach and PEG. Continue to provide supportive care, follow CBC and BMP. 12/14: Stop cefepime today, wean off from vent as tolerated. cont Heparin inf usion, while monitoring for bleeding 12/15: Patient is not tolerating SBT trial, becoming apnic on CPAP. May need to place on trach and PEG. Continue heparin drip, monitor off antibiotics Subjective Date of service: 12/16/19 Principal diagnosis: Ac hypoxemic resp failure; Pneumonia; PUI COVID-19; CHF; COPD; HTN Interval history: Patient seen and examined Patient intubated on mechanical ventilation Discussed with RN at the bedside H/H STABLE, patient remains on heparin drip Objective - Exam Narrative Exam: General appearance: Present: well-nourished, other (Intubated), opens eyes to names and follows minor command - EENT Eyes: Present: PERRL, EOM intact. Absent: scleral icterus ENT: clear oral mucosa, dentition normal - Neck Neck: Present: supple, normal ROM - Respiratory Respiratory effort: normal, mechanical ventilation Respiratory: bilateral: rales - Cardiovascular Rhythm: regular Heart Sounds: Present: S1 & S2, tachycardic. Absent: gallop, systolic murmur, diastolic murmur, rub - Extremities Extremities: no ischemia, pulses intact, pulses symmetrical, No edema, Full ROM Peripheral Pulses: within normal limits - Abdominal General gastrointestinal: Present: soft, non-tender, non-distended, normal bowel sounds. Absent: mass - Integumentary Integumentary: Present: clear, warm, dry. Absent: rash - Musculoskeletal Musculoskeletal: no joint swelling - Psychiatric Psychiatric: sedated Neurology: no focal deficits - Constitutional Vitals: Vital Signs - 12hr 12/16/19 12/16/19 12/16/19 04:31 05:00 05:02 Temperature Pulse Rate 81 82 82 Pulse Rate [ From Monitor] Respiratory 13 14 Rate Blood Pressure 130/83 122/83 122/83 O2 Sat by Pulse 97 93 97 Oximetry 12/16/19 12/16/19 12/16/19 05:23 05:31 06:00 Temperature Pulse Rate 81 79 78 Pulse Rate [ From Monitor] Respiratory 12 13 Rate Blood Pressure 122/83 122/83 114/78 O2 Sat by Pulse 95 94 Oximetry 12/16/19 12/16/19 12/16/19 06:30 07:00 07:31 Temperature Pulse Rate 80 77 73 Pulse Rate [ From Monitor] Respiratory 13 16 13 Rate Blood Pressure 114/78 109/77 109/77 O2 Sat by Pulse 94 93 95 Oximetry 12/16/19 12/16/19 12/16/19 08:00 08:31 08:32 Temperature 98.3 F Pulse Rate 78 83 82 Pulse Rate [ 77 From Monitor] Respiratory 13 14 Rate Blood Pressure 113/77 113/77 113/77 O2 Sat by Pulse 92 94 94 Oximetry 12/16/19 12/16/19 12/16/19 09:01 09:31 10:00 Temperature Pulse Rate 87 78 82 Pulse Rate [ From Monitor] Respiratory 14 12 14 Rate Blood Pressure 128/99 128/99 129/87 O2 Sat by Pulse 85 92 89 Oximetry 12/16/19 12/16/19 12/16/19 10:31 11:00 11:31 Temperature Pulse Rate 83 83 80 Pulse Rate [ From Monitor] Respiratory 14 14 15 Rate Blood Pressure 129/87 126/93 126/93 O2 Sat by Pulse 94 88 97 Oximetry 12/16/19 12/16/19 12/16/19 12:00 12:31 13:00 Temperature 98.6 F Pulse Rate 80 79 83 Pulse Rate [ 81 From Monitor] Respiratory 14 17 13 Rate Blood Pressure 134/89 134/89 130/87 O2 Sat by Pulse 91 97 94 Oximetry 12/16/19 12/16/19 12/16/19 13:10 13:13 13:31 Temperature Pulse Rate 90 93 H 80 Pulse Rate [ From Monitor] Respiratory 13 Rate Blood Pressure 130/87 130/87 130/87 O2 Sat by Pulse 97 96 Oximetry 12/16/19 14:00 Temperature Pulse Rate 87 Pulse Rate [ From Monitor] Respiratory 20 Rate Blood Pressure 140/92 O2 Sat by Pulse 92 Oximetry - Labs CBC & Chem 7: 12/16/19 05:46 12/16/19 05:46 Labs: Abnormal lab results 12/15/19 12/15/19 12/16/19 Range/Units 17:26 23:11 05:30 Hgb (11.8-15.2) gm/dl Hct (35.5-45.6) % Heparin Anti-Xa Level (0.3-0.7) U.I./ml Carbon Dioxide (22-30) mmol/L Creatinine (0.8-1.3) mg/dL Glucose (75-100) mg/dL POC Glucose 128 H 150 H 134 H (70-105) 12/16/19 12/16/19 12/16/19 Range/Units 05:46 05:46 05:46 Hgb 8.8 L (11.8-15.2) gm/dl Hct 27.9 L (35.5-45.6) % Heparin Anti-Xa Level 0.20 L (0.3-0.7) U.I./ml Carbon Dioxide 31 H (22-30) mmol/L Creatinine 0.5 L (0.8-1.3) mg/dL Glucose 147 H (75-100) mg/dL POC Glucose (70-105) 12/16/19 Range/Units 11:44 Hgb (11.8-15.2) gm/dl Hct (35.5-45.6) % Heparin Anti-Xa Level (0.3-0.7) U.I./ml Carbon Dioxide (22-30) mmol/L Creatinine (0.8-1.3) mg/dL Glucose (75-100) mg/dL POC Glucose 164 H (70-105) HEART Score - HEART Score Troponin: Troponin T < 0.010 ng/mL (0.00-0.029) 11/24/19 02:53
[2019-12-16] MEDS: LORazepam 2 MG/ML VIAL IV PRN (16:29)
[2019-12-16] MEDS: POLYETHYLENE GLYCOL 3350 17 GM POWDER PO SCH (21:45)
[2019-12-16] MEDS: QUEtiapine 100 MG TAB PO SCH (21:46)
[2019-12-17] MEDS: INSULIN LISPRO 100 UNIT/ML VIAL 3 mL SUB-Q SCH ×3 (00:17→13:30)
[2019-12-17 05:45] LABS: Basophils # (Auto) 0.2 K/mm3 (0.0-0.1); Basophils % (Auto) 1.5 % (0.0-1.8); Eosinophils # (Auto) 0.5 K/mm3 (0.0-0.4); Eosinophils % (Auto) 3.8 % (0.0-4.3); Hematocrit 29.2 % (35.5-45.6); Hemoglobin 9.4 gm/dl (11.8-15.2); Lymphocytes # (Auto) 2.1 K/mm3 (1.2-5.4); Lymphocytes % (Auto) 15.4 % (13.4-35.0); Mean Corpuscular HGB Conc 32 % (32-34); Mean Corpuscular Volume 89 fl (84-94); Monocytes # (Auto) 1.2 K/mm3 (0.0-0.8); Monocytes % (Auto) 8.8 % (0.0-7.3); Platelet Count 313 K/mm3 (140-440); Red Blood Count 3.27 M/mm3 (3.65-5.03)
[2019-12-17 06:08] LABS: BUN/Creatinine Ratio 40; Blood Urea Nitrogen 20 mg/dL (9-20); Calcium 9.5 mg/dL (8.4-10.2); Hemolysis Index 2
[2019-12-17] MEDS: METOPROLOL TARTRATE 50 MG TAB PO SCH ×3 (06:18→21:07)
[2019-12-17] MEDS: HEPARIN/ 0.45% NACL DRIP 25,000 UNIT/500 ML BAG IV SCH ×2 (06:19→22:19)
[2019-12-17] MEDS: fentaNYL DRIP Premix 2,000 MCG/100 ML BAG IV SCH ×3 (06:23→21:53)
--- NOTE | 2019-12-17 09:03 | Progress Note ---
Assessment and Plan Cultures: Blood culture 12/02/2019 negative Blood culture 11/24/2019 negative Urine culture 11/24/2019 negative COVID-19 negative x2 12/04/2019 resp culture: PsA 12/06/2019 blood cultures: No growth today A/P: 64-year-old male past medical history hypertension, COPD, CAD, CHF with reduced ejection fraction admitted with acute hypoxic respiratory failure likely secondary to pneumonia #Sepsis: With persistent low-grade fever 100, likely due to PE/DVT. Procalcitonin improving, from 1.5-->0.6. #Acute hypoxemic respiratory failure: Likely secondary to pneumonia/PE, COVID-19 testing negative x 2. Remains intubated, on CPAP trial #Bilateral pneumonia: COVID-19 negative twice. Culture growing Pseudomonas, pansensitive. Repeat chest x-ray with persistent right base opacity. CT shows PE. #CHF: per primary team #COPD: per pulmonary #Elevated LFTs: Improving? sepsis. US unremarkable GB #PE/right DVT: on heparin gtt #Urinary retention: Overnight patient did not void, bladder scan showed 700 cc, Hoffman placed 12/15/2019. Recs: -Monitor off antibiotics/ no fever for 24h -PE/DVT per primary team will follow Patsy Dominique MD [facility] ([facility]) Office [phone] Subjective Date of service: 12/17/19 Principal diagnosis: Ac hypoxemic resp failure; Pneumonia; PUI COVID-19; CHF; COPD; HTN Interval history: Remains intubated, on the ventilator, no fever x 24h Objective - Exam Narrative Exam: Constitutional: Alert intubated FiO2 45/p6 Head, Ears, Nose: Normocephalic, atraumatic. External ears, nose normal Oral: ETT in place, OG tube in place Eyes: Conjunctivae/corneas clear. No icterus. No ptosis. Neck: Supple, no meningeal signs Cardiovascular: RRR Respiratory:CTA sofía GI: Soft, non-tender Musculoskeletal: bilateral hand edema Skin: No rash or abscess Hem/Lymphatic: No palpable cervical or supraclavicular nodes. No lymphangitis Psych: Alert Neurological: Alert Hoffman in place - Constitutional Vitals: Vital Signs Temp Pulse Resp BP Pulse Ox 98.3 F 87 13 108/73 96 12/17/19 07:45 12/17/19 08:00 12/17/19 08:00 12/17/19 08:00 12/17/19 08:00 Temperature -Last 24 Hours Temperature 98.3 F Temperature 98.2 F Temperature 98.1 F Temperature 98.5 F Temperature 99.7 F Temperature 98.6 F - Labs CBC & Chem 7: 12/17/19 05:30 12/17/19 05:30 Labs: Abnormal lab results 12/16/19 12/16/19 12/16/19 Range/Units 11:44 17:17 23:49 WBC (4.5-11.0) K/mm3 RBC (3.65-5.03) M/mm3 Hgb (11.8-15.2) gm/dl Hct (35.5-45.6) % RDW (13.2-15.2) % [place] % (Auto) (0.0-7.3) % [place] # (Auto) (0.0-0.8) K/mm3 Eos # (Auto) (0.0-0.4) K/mm3 Baso # (Auto) (0.0-0.1) K/mm3 Seg Neutrophils % (40.0-70.0) % Seg Neutrophils # (1.8-7.7) K/mm3 Chloride (98-107) mmol/L Carbon Dioxide (22-30) mmol/L Creatinine (0.8-1.3) mg/dL Glucose (75-100) mg/dL POC Glucose 164 H 162 H 144 H (70-105) 12/17/19 12/17/19 12/17/19 Range/Units 05:30 05:30 06:06 WBC 13.9 H (4.5-11.0) K/mm3 RBC 3.27 L (3.65-5.03) M/mm3 Hgb 9.4 L (11.8-15.2) gm/dl Hct 29.2 L (35.5-45.6) % RDW 16.0 H (13.2-15.2) % [place] % (Auto) 8.8 H (0.0-7.3) % [place] # (Auto) 1.2 H (0.0-0.8) K/mm3 Eos # (Auto) 0.5 H (0.0-0.4) K/mm3 Baso # (Auto) 0.2 H (0.0-0.1) K/mm3 Seg Neutrophils % 70.5 H (40.0-70.0) % Seg Neutrophils # 9.8 H (1.8-7.7) K/mm3 Chloride 97.4 L (98-107) mmol/L Carbon Dioxide 32 H (22-30) mmol/L Creatinine 0.5 L (0.8-1.3) mg/dL Glucose 135 H (75-100) mg/dL POC Glucose 151 H (70-105)
[2019-12-17] MEDS: AMIODARONE 200 MG TAB PO SCH ×2 (10:15→21:06)
[2019-12-17] MEDS: DOCUSATE SODIUM 100 MG/10 ML ORAL LIQD FEEDTUBE SCH ×2 (10:15→21:10)
[2019-12-17] MEDS: QUEtiapine 25 MG TAB PO SCH (10:16)
[2019-12-17] MEDS: FAMOTIDINE 20 MG TAB PO SCH ×2 (10:16→21:07)
--- NOTE | 2019-12-17 10:53 | Progress Note ---
Assessment and Plan Transient Afib after CPAP trial currently in sinus rhythm Ischemic Cardiomyopathy, resolving re-echo this presentation reports an LVEF 40-45%. echo 08/2018: decreased LVEF 20-25%. Hx of CAD [facility] 12/2018: mild in-stent restenosis. No significant residual disease. Multifocal pneumonia with intermittent fevers negative COVID-19 test x 2 Respiratory failure Acute PE/DVT on IV heparin Recommendations: Continue amiodarone and metoprolol for suppression of paroxysmal atrial fibrillation. Otherwise, conservative cardiac management. Subjective Date of service: 12/17/19 Principal diagnosis: Ac hypoxemic resp failure; Pneumonia; PUI COVID-19; CHF; COPD; HTN Interval history: Remains intubated on the vent. Stable sinus rhythm on telemetry. Objective Vital Signs Temp Pulse Pulse Resp BP Pulse Ox 12/17/19 09:34 85 129/87 96 12/17/19 08:00 87 13 108/73 96 12/17/19 07:47 97 H 16 91 12/17/19 07:45 98.3 F 88 12/17/19 07:30 100 H 17 108/70 95 12/17/19 07:29 97 H 109/72 96 12/17/19 07:00 84 13 109/72 12/17/19 06:30 85 11 L 108/70 96 12/17/19 06:18 87 108/70 12/17/19 06:00 82 13 108/70 12/17/19 05:30 85 20 115/72 98 12/17/19 05:00 79 11 L 106/65 94 12/17/19 04:30 82 14 115/72 94 12/17/19 04:00 98.2 F 97 H 97 H 16 123/88 91 12/17/19 03:30 83 13 123/88 97 12/17/19 03:00 86 12 123/88 95 12/17/19 02:30 84 21 118/82 97 12/17/19 02:00 80 13 118/82 12/17/19 01:30 86 15 122/90 97 12/17/19 01:00 84 13 122/90 12/17/19 00:30 84 11 L 122/94 97 12/17/19 00:02 85 129/87 99 12/17/19 00:00 98.1 F 85 85 12 129/87 96 12/16/19 23:30 87 13 122/94 98 12/16/19 23:04 89 13 122/94 97 12/16/19 23:00 88 16 122/94 97 12/16/19 22:30 79 13 139/96 96 12/16/19 22:00 87 13 139/96 96 12/16/19 21:46 96 H 131/95 12/16/19 21:30 87 15 131/95 99 12/16/19 21:00 88 18 131/95 12/16/19 20:34 95 H 135/93 96 12/16/19 20:30 124 H 18 135/93 94 12/16/19 20:00 98.5 F 89 92 H 16 135/93 99 12/16/19 19:30 88 15 129/92 99 12/16/19 19:00 94 H 23 137/93 94 12/16/19 18:30 85 16 129/92 98 12/16/19 18:00 87 17 129/92 94 12/16/19 17:30 82 15 146/87 99 12/16/19 17:00 87 19 146/87 95 12/16/19 16:53 88 147/120 94 12/16/19 16:30 98 H 21 147/120 94 12/16/19 16:01 100 H 15 147/120 92 12/16/19 16:00 99.7 F H 110 H 85 12 97 12/16/19 15:31 81 17 131/89 95 12/16/19 15:00 81 15 131/89 91 12/16/19 14:31 82 14 140/92 96 12/16/19 14:00 87 20 140/92 92 12/16/19 13:31 80 13 130/87 96 12/16/19 13:13 93 H 130/87 12/16/19 13:10 90 130/87 97 12/16/19 13:00 83 13 130/87 94 12/16/19 12:31 79 17 134/89 97 12/16/19 12:00 98.6 F 80 81 14 134/89 91 12/16/19 11:31 80 15 126/93 97 12/16/19 11:00 83 14 126/93 88 - Physical Examination General: Other (intubated on the vent) Cardiac: Positive: Reg Rate and Rhythm Extremities: Absent: edema - Labs and Meds CBC 12/17/19 Range/Units 05:30 WBC 13.9 H (4.5-11.0) K/mm3 RBC 3.27 L (3.65-5.03) M/mm3 Hgb 9.4 L (11.8-15.2) gm/dl Hct 29.2 L (35.5-45.6) % Plt Count 313 (140-440) K/mm3 Lymph # (Auto) 2.1 (1.2-5.4) K/mm3 [place] # (Auto) 1.2 H (0.0-0.8) K/mm3 Eos # (Auto) 0.5 H (0.0-0.4) K/mm3 Baso # (Auto) 0.2 H (0.0-0.1) K/mm3 Comprehensive Metabolic Panel 12/17/19 Range/Units 05:30 Sodium 138 (137-145) mmol/L Potassium 4.6 (3.6-5.0) mmol/L Chloride 97.4 L (98-107) mmol/L Carbon Dioxide 32 H (22-30) mmol/L BUN 20 (9-20) mg/dL Creatinine 0.5 L (0.8-1.3) mg/dL Glucose 135 H (75-100) mg/dL Calcium 9.5 (8.4-10.2) mg/dL - Allied health notes Allied health notes reviewed: nursing
--- NOTE | 2019-12-17 12:26 | Progress Note ---
Assessment and Plan Acute hypoxemic respiratory failure Bilateral pneumonia, community acquired. Person under investigation for COVID-19 infection. Acute congestive heart failure exacerbation. History of cerebrovascular accident. Acute chronic obstructive pulmonary disease exacerbation. Hypertension and hypertensive urgency at presentation. History of arthritis. Leukocytosis. Lactic acidosis. Oropharyngeal dysphagia - repeat CXR in am +/- bronchoscopy - Surgery consult placed for tyracheostomy - follow BAL studies - discontinued sánchez catheter - continue daily SAT's and SBT assessment as tolerated - continue care as below otherwise; - continue low dose seroquel - COVID isolation per facility protocol - free water for hypernatremia - continue diuresis while following electrolytes / I's & O's - continue to wean oxygen for O2 sat's > 92% - continue bronchodilators with pulmonary hygiene per RT - VAP bundle addressed (Aspiration precautions, HOB >40) - continue to wean per pulmonary driven protocols - sedation target is RASS 0 to -1 - continue prn analgesia per CPOT score - follow clinically re: fever curves / trend WBC - Avoid delirium (no benzodiazepines if they can be avoided) - Maintain sleep-wake cycle - enteral nutrition at goal rate as tolerated - continue accucheck's with glycemic control per SSI for target blood glucose goal of 140-180 mg/dL while critically ill; Avoid hypoglycemia - continue VTE prophylaxis with Heparin - continue stress ulcer prophylaxis with Famotidine - continue mobility protocols for pressure ulcer prophylaxis - continue fall precautions - continue wound care management per RN / WCT - Supportive transfusions to keep HgB>7g/dL - CXR's and ABG's prn - Continue to monitor neurologic function - Continue chronic home medications - Continue all supportive care ........ re-evaluate in am & prn CONDITION: CRITICAL PROGNOSIS: GUARDED CODE STATUS: FULL CODE The high probability of a clinically significant, sudden or life threatening deterioration of the [Respiratory, cardiovascular & neurological] system(s) required my full and direct attention, intervention and personal management. The aggregate critical care time was [35] minutes without overlap. Time includes spent on [x] Data Review and interpretation [x] Patient assessment and monitoring of vital signs [x] Documentation [x] Medication orders and management Subjective Date of service: 12/17/19 Principal diagnosis: Ac hypoxemic resp failure; Pneumonia; PUI COVID-19; CHF; COPD; HTN Interval history: Patient is seen today for: Acute hypoxemic respiratory failure; [place]. Pneumonia (CAP); PUI COVID-19 infection; AE-CHF; AE-COPD; H/O CVA; HTN Seen and examined at bedside; 24 hour events reviewed; nursing and respiratory care staff consulted; no adverse overnight events reported to me; resting peacefully in bed; AMS is persistent but follows some simple commands; weaning of PSV today but only for a few hours; ETT day # 24; no emesis or overt aspiration Objective Vital Signs - 12hr 12/17/19 12/17/19 12/17/19 00:30 01:00 01:30 Temperature Pulse Rate 84 84 86 Pulse Rate [ From Monitor] Respiratory 11 L 13 15 Rate Blood Pressure 122/94 122/90 122/90 O2 Sat by Pulse 97 97 Oximetry 12/17/19 12/17/19 12/17/19 02:00 02:30 03:00 Temperature Pulse Rate 80 84 86 Pulse Rate [ From Monitor] Respiratory 13 21 12 Rate Blood Pressure 118/82 118/82 123/88 O2 Sat by Pulse 97 95 Oximetry 12/17/19 12/17/19 12/17/19 03:30 04:00 04:30 Temperature 98.2 F Pulse Rate 83 97 H 82 Pulse Rate [ 97 H From Monitor] Respiratory 13 16 14 Rate Blood Pressure 123/88 123/88 115/72 O2 Sat by Pulse 97 91 94 Oximetry 12/17/19 12/17/19 12/17/19 05:00 05:30 06:00 Temperature Pulse Rate 79 85 82 Pulse Rate [ From Monitor] Respiratory 11 L 20 13 Rate Blood Pressure 106/65 115/72 108/70 O2 Sat by Pulse 94 98 Oximetry 12/17/19 12/17/19 12/17/19 06:18 06:30 07:00 Temperature Pulse Rate 87 85 84 Pulse Rate [ From Monitor] Respiratory 11 L 13 Rate Blood Pressure 108/70 108/70 109/72 O2 Sat by Pulse 96 Oximetry 12/17/19 12/17/19 12/17/19 07:29 07:30 07:45 Temperature 98.3 F Pulse Rate 97 H 100 H 88 Pulse Rate [ From Monitor] Respiratory 17 Rate Blood Pressure 109/72 108/70 O2 Sat by Pulse 96 95 Oximetry 12/17/19 12/17/19 12/17/19 07:47 08:00 08:30 Temperature Pulse Rate 87 87 Pulse Rate [ 97 H From Monitor] Respiratory 16 13 12 Rate Blood Pressure 108/73 108/73 O2 Sat by Pulse 91 96 96 Oximetry 12/17/19 12/17/19 12/17/19 09:00 09:30 09:34 Temperature Pulse Rate 92 H 81 85 Pulse Rate [ From Monitor] Respiratory 16 10 L Rate Blood Pressure 108/73 108/73 129/87 O2 Sat by Pulse 95 95 96 Oximetry 12/17/19 12/17/19 12/17/19 10:00 10:30 11:00 Temperature Pulse Rate 88 86 86 Pulse Rate [ From Monitor] Respiratory 15 14 13 Rate Blood Pressure 116/67 116/67 112/73 O2 Sat by Pulse 94 95 Oximetry 12/17/19 11:24 Temperature Pulse Rate 89 Pulse Rate [ From Monitor] Respiratory Rate Blood Pressure 112/73 O2 Sat by Pulse 97 Oximetry Constitutional: no acute distress, agitated, other (elderly and obese male, normocephalic with mildly increased respiratory effort at rest on MVS) Eyes: non-icteric ENT: oropharynx moist, other (ETT 24 cm JASON) Neck: supple, no JVD Effort: very labored Ascultation: Bilateral: diminished breath sounds, rhonchi Percussion: Bilateral: not dull Cardiovascular: irregular rhythm Gastrointestinal: normoactive bowel sounds, soft, non-tender, non-distended Integumentary: normal Extremities: no cyanosis, no edema, pulses normal, no ischemia or petechiae Neurologic: non-focal exam (moves all extremities with extreme agitation), pupils equal and round, motor strength normal and, other (sedated lightly) Psychiatric: other (unable to assesds re: AMS) CBC and BMP: 12/17/19 05:30 12/17/19 05:30 ABG, PT/INR, D-dimer: ABG ABG pH 7.439 (7.320-7.450) 12/02/19 12:58 POC ABG pCO2 45.1 mmHg (32.0-48.0) 12/02/19 12:58 ABG pCO2 43.4 mm Hg 11/30/19 04:56 POC ABG pO2 78.1 mmHg (83-108) L 12/02/19 12:58 ABG pO2 56.3 mm Hg (80.0-90.0) L 11/30/19 04:56 POC ABG HCO3 29.9 12/02/19 12:58 ABG O2 Saturation 91.5 % (95.0-99.0) L 11/30/19 04:56 PT/INR, D-dimer PT 14.0 Sec. (12.2-14.9) 12/10/19 21:20 INR 1.06 (0.87-1.13) 12/10/19 21:20 Abnormal lab findings: Abnormal Labs 11/24/19 11/24/19 11/24/19 02:53 02:53 03:45 WBC 14.3 H RBC Hgb Hct MCHC RDW 17.2 H Lymph % (Auto) [place] % (Auto) [place] # Eos # [place] # (Auto) Eos # (Auto) Seg Neutrophils % Seg Neuts % (Manual) Baso # (Auto) Lymphocytes % (Manual) Monocytes % (Manual) Eosinophils % (Manual) Basophils % (Manual) Seg Neutrophils # Seg Neutrophils # Man 8.3 H Lymphocytes # (Manual) Monocytes # (Manual) 0.9 H Eosinophils # (Manual) Basophils # (Manual) Heparin Anti-Xa Level ABG pH 7.313 L POC ABG pO2 ABG pO2 102.8 H ABG HCO3 ABG O2 Saturation ABG Base Excess -2.9 L ABG Hemoglobin ABG Oxyhemoglobin Oxyhemoglobin 93.9 L Sodium Potassium Chloride Carbon Dioxide BUN Creatinine Glucose 195 H POC Glucose Lactic Acid Calcium Phosphorus Magnesium AST ALT Lactate Dehydrogenase CK-MB (CK-2) 4.3 H C-Reactive Protein NT-Pro-B Natriuret Pep 1181 H Total Protein Albumin Urine WBC (Auto) 11/24/19 11/24/19 11/24/19 04:53 04:53 10:37 WBC RBC Hgb Hct MCHC RDW Lymph % (Auto) [place] % (Auto) [place] # Eos # [place] # (Auto) Eos # (Auto) Seg Neutrophils % Seg Neuts % (Manual) Baso # (Auto) Lymphocytes % (Manual) Monocytes % (Manual) Eosinophils % (Manual) Basophils % (Manual) Seg Neutrophils # Seg Neutrophils # Man Lymphocytes # (Manual) Monocytes # (Manual) Eosinophils # (Manual) Basophils # (Manual) Heparin Anti-Xa Level ABG pH POC ABG pO2 ABG pO2 ABG HCO3 ABG O2 Saturation ABG Base Excess ABG Hemoglobin ABG Oxyhemoglobin Oxyhemoglobin Sodium Potassium Chloride Carbon Dioxide BUN Creatinine Glucose 162 H POC Glucose Lactic Acid 2.40 H* 2.50 H* Calcium Phosphorus Magnesium AST ALT Lactate Dehydrogenase 240 H CK-MB (CK-2) C-Reactive Protein NT-Pro-B Natriuret Pep Total Protein Albumin Urine WBC (Auto) 11/24/19 11/24/19 11/24/19 12:21 14:50 19:54 WBC RBC Hgb Hct MCHC RDW Lymph % (Auto) [place] % (Auto) [place] # Eos # [place] # (Auto) Eos # (Auto) Seg Neutrophils % Seg Neuts % (Manual) Baso # (Auto) Lymphocytes % (Manual) Monocytes % (Manual) Eosinophils % (Manual) Basophils % (Manual) Seg Neutrophils # Seg Neutrophils # Man Lymphocytes # (Manual) Monocytes # (Manual) Eosinophils # (Manual) Basophils # (Manual) Heparin Anti-Xa Level ABG pH POC ABG pO2 ABG pO2 ABG HCO3 ABG O2 Saturation ABG Base Excess ABG Hemoglobin ABG Oxyhemoglobin Oxyhemoglobin Sodium Potassium Chloride Carbon Dioxide BUN Creatinine Glucose POC Glucose 145 H 143 H 124 H Lactic Acid Calcium Phosphorus Magnesium AST ALT Lactate Dehydrogenase CK-MB (CK-2) C-Reactive Protein NT-Pro-B Natriuret Pep Total Protein Albumin Urine WBC (Auto) 11/25/19 11/25/19 11/25/19 00:18 03:18 05:11 WBC 13.7 H RBC Hgb Hct MCHC RDW 17.1 H Lymph % (Auto) 10.8 L [place] % (Auto) 8.7 H [place] # 1.2 H Eos # [place] # (Auto) Eos # (Auto) Seg Neutrophils % 80.2 H Seg Neuts % (Manual) Baso # (Auto) Lymphocytes % (Manual) Monocytes % (Manual) Eosinophils % (Manual) Basophils % (Manual) Seg Neutrophils # 11.0 H Seg Neutrophils # Man Lymphocytes # (Manual) Monocytes # (Manual) Eosinophils # (Manual) Basophils # (Manual) Heparin Anti-Xa Level ABG pH 7.333 L POC ABG pO2 ABG pO2 61.2 L ABG HCO3 ABG O2 Saturation 90.2 L ABG Base Excess ABG Hemoglobin 13.7 L ABG Oxyhemoglobin Oxyhemoglobin 88.2 L Sodium Potassium Chloride Carbon Dioxide BUN Creatinine Glucose POC Glucose 109 H Lactic Acid Calcium Phosphorus Magnesium AST ALT Lactate Dehydrogenase CK-MB (CK-2) C-Reactive Protein NT-Pro-B Natriuret Pep Total Protein Albumin Urine WBC (Auto) 11/25/19 11/25/19 11/26/19 05:11 11:40 03:12 WBC RBC Hgb Hct MCHC RDW Lymph % (Auto) [place] % (Auto) [place] # Eos # [place] # (Auto) Eos # (Auto) Seg Neutrophils % Seg Neuts % (Manual) Baso # (Auto) Lymphocytes % (Manual) Monocytes % (Manual) Eosinophils % (Manual) Basophils % (Manual) Seg Neutrophils # Seg Neutrophils # Man Lymphocytes # (Manual) Monocytes # (Manual) Eosinophils # (Manual) Basophils # (Manual) Heparin Anti-Xa Level ABG pH POC ABG pO2 ABG pO2 155.1 H ABG HCO3 27.8 H ABG O2 Saturation ABG Base Excess ABG Hemoglobin 12.2 L ABG Oxyhemoglobin Oxyhemoglobin Sodium Potassium Chloride Carbon Dioxide BUN 23 H Creatinine Glucose 110 H POC Glucose 108 H Lactic Acid Calcium Phosphorus Magnesium AST ALT Lactate Dehydrogenase CK-MB (CK-2) C-Reactive Protein NT-Pro-B Natriuret Pep Total Protein Albumin Urine WBC (Auto) 11/26/19 11/26/19 11/26/19 06:17 10:43 10:43 WBC 11.4 H RBC Hgb Hct MCHC RDW 17.1 H Lymph % (Auto) [place] % (Auto) [place] # Eos # [place] # (Auto) Eos # (Auto) Seg Neutrophils % Seg Neuts % (Manual) Baso # (Auto) Lymphocytes % (Manual) Monocytes % (Manual) Eosinophils % (Manual) Basophils % (Manual) Seg Neutrophils # Seg Neutrophils # Man Lymphocytes # (Manual) Monocytes # (Manual) Eosinophils # (Manual) Basophils # (Manual) Heparin Anti-Xa Level ABG pH POC ABG pO2 ABG pO2 ABG HCO3 ABG O2 Saturation ABG Base Excess ABG Hemoglobin ABG Oxyhemoglobin Oxyhemoglobin Sodium Potassium Chloride Carbon Dioxide BUN 29 H Creatinine Glucose POC Glucose 107 H Lactic Acid Calcium Phosphorus Magnesium AST ALT Lactate Dehydrogenase CK-MB (CK-2) C-Reactive Protein NT-Pro-B Natriuret Pep Total Protein Albumin Urine WBC (Auto) 11/26/19 11/27/19 11/27/19 17:11 01:53 04:11 WBC RBC Hgb Hct MCHC RDW Lymph % (Auto) [place] % (Auto) [place] # Eos # [place] # (Auto) Eos # (Auto) Seg Neutrophils % Seg Neuts % (Manual) Baso # (Auto) Lymphocytes % (Manual) Monocytes % (Manual) Eosinophils % (Manual) Basophils % (Manual) Seg Neutrophils # Seg Neutrophils # Man Lymphocytes # (Manual) Monocytes # (Manual) Eosinophils # (Manual) Basophils # (Manual) Heparin Anti-Xa Level ABG pH POC ABG pO2 ABG pO2 ABG HCO3 29.2 H ABG O2 Saturation ABG Base Excess 3.4 H ABG Hemoglobin 13.3 L ABG Oxyhemoglobin Oxyhemoglobin 94.5 L Sodium Potassium Chloride Carbon Dioxide BUN Creatinine Glucose POC Glucose 113 H 108 H Lactic Acid Calcium Phosphorus Magnesium AST ALT Lactate Dehydrogenase CK-MB (CK-2) C-Reactive Protein NT-Pro-B Natriuret Pep Total Protein Albumin Urine WBC (Auto) 11/27/19 11/28/19 11/28/19 05:27 05:00 05:25 WBC RBC Hgb Hct MCHC RDW Lymph % (Auto) [place] % (Auto) [place] # Eos # [place] # (Auto) Eos # (Auto) Seg Neutrophils % Seg Neuts % (Manual) Baso # (Auto) Lymphocytes % (Manual) Monocytes % (Manual) Eosinophils % (Manual) Basophils % (Manual) Seg Neutrophils # Seg Neutrophils # Man Lymphocytes # (Manual) Monocytes # (Manual) Eosinophils # (Manual) Basophils # (Manual) Heparin Anti-Xa Level ABG pH POC ABG pO2 68.1 L ABG pO2 ABG HCO3 ABG O2 Saturation ABG Base Excess ABG Hemoglobin ABG Oxyhemoglobin 91.2 L Oxyhemoglobin Sodium Potassium Chloride Carbon Dioxide BUN Creatinine Glucose POC Glucose 111 H 110 H Lactic Acid Calcium Phosphorus Magnesium AST ALT Lactate Dehydrogenase CK-MB (CK-2) C-Reactive Protein NT-Pro-B Natriuret Pep Total Protein Albumin Urine WBC (Auto) 11/28/19 11/28/19 11/28/19 12:08 13:47 13:47 WBC 11.3 H RBC Hgb Hct MCHC RDW 16.1 H Lymph % (Auto) [place] % (Auto) 9.9 H [place] # 1.1 H Eos # [place] # (Auto) Eos # (Auto) Seg Neutrophils % 71.4 H Seg Neuts % (Manual) Baso # (Auto) Lymphocytes % (Manual) Monocytes % (Manual) Eosinophils % (Manual) Basophils % (Manual) Seg Neutrophils # 8.1 H Seg Neutrophils # Man Lymphocytes # (Manual) Monocytes # (Manual) Eosinophils # (Manual) Basophils # (Manual) Heparin Anti-Xa Level ABG pH POC ABG pO2 ABG pO2 ABG HCO3 ABG O2 Saturation ABG Base Excess ABG Hemoglobin ABG Oxyhemoglobin Oxyhemoglobin Sodium Potassium Chloride Carbon Dioxide BUN 23 H Creatinine Glucose 123 H POC Glucose 112 H Lactic Acid Calcium Phosphorus Magnesium AST ALT Lactate Dehydrogenase CK-MB (CK-2) C-Reactive Protein NT-Pro-B Natriuret Pep Total Protein Albumin 3.7 L Urine WBC (Auto) 11/28/19 11/29/19 11/29/19 17:26 03:55 17:04 WBC RBC Hgb Hct MCHC RDW Lymph % (Auto) [place] % (Auto) [place] # Eos # [place] # (Auto) Eos # (Auto) Seg Neutrophils % Seg Neuts % (Manual) Baso # (Auto) Lymphocytes % (Manual) Monocytes % (Manual) Eosinophils % (Manual) Basophils % (Manual) Seg Neutrophils # Seg Neutrophils # Man Lymphocytes # (Manual) Monocytes # (Manual) Eosinophils # (Manual) Basophils # (Manual) Heparin Anti-Xa Level ABG pH POC ABG pO2 ABG pO2 65.7 L ABG HCO3 28.3 H ABG O2 Saturation 93.9 L ABG Base Excess 3.6 H ABG Hemoglobin 13.3 L ABG Oxyhemoglobin Oxyhemoglobin 91.5 L Sodium Potassium Chloride Carbon Dioxide BUN Creatinine Glucose POC Glucose 123 H 119 H Lactic Acid Calcium Phosphorus Magnesium AST ALT Lactate Dehydrogenase CK-MB (CK-2) C-Reactive Protein NT-Pro-B Natriuret Pep Total Protein Albumin Urine WBC (Auto) 11/30/19 11/30/19 11/30/19 04:17 04:17 04:56 WBC 13.4 H RBC Hgb Hct MCHC RDW 15.6 H Lymph % (Auto) [place] % (Auto) [place] # Eos # [place] # (Auto) Eos # (Auto) Seg Neutrophils % Seg Neuts % (Manual) Baso # (Auto) Lymphocytes % (Manual) Monocytes % (Manual) Eosinophils % (Manual) Basophils % (Manual) Seg Neutrophils # Seg Neutrophils # Man Lymphocytes # (Manual) Monocytes # (Manual) Eosinophils # (Manual) Basophils # (Manual) Heparin Anti-Xa Level ABG pH POC ABG pO2 ABG pO2 56.3 L ABG HCO3 29.3 H ABG O2 Saturation 91.5 L ABG Base Excess 4.7 H ABG Hemoglobin 12.1 L ABG Oxyhemoglobin Oxyhemoglobin 89.2 L Sodium 147 H Potassium Chloride Carbon Dioxide BUN 30 H Creatinine Glucose 124 H POC Glucose Lactic Acid Calcium Phosphorus Magnesium AST ALT Lactate Dehydrogenase CK-MB (CK-2) C-Reactive Protein NT-Pro-B Natriuret Pep Total Protein Albumin 3.8 L Urine WBC (Auto) 11/30/19 11/30/19 11/30/19 05:51 11:54 18:17 WBC RBC Hgb Hct MCHC RDW Lymph % (Auto) [place] % (Auto) [place] # Eos # [place] # (Auto) Eos # (Auto) Seg Neutrophils % Seg Neuts % (Manual) Baso # (Auto) Lymphocytes % (Manual) Monocytes % (Manual) Eosinophils % (Manual) Basophils % (Manual) Seg Neutrophils # Seg Neutrophils # Man Lymphocytes # (Manual) Monocytes # (Manual) Eosinophils # (Manual) Basophils # (Manual) Heparin Anti-Xa Level ABG pH POC ABG pO2 ABG pO2 ABG HCO3 ABG O2 Saturation ABG Base Excess ABG Hemoglobin ABG Oxyhemoglobin Oxyhemoglobin Sodium Potassium Chloride Carbon Dioxide BUN Creatinine Glucose POC Glucose 127 H 115 H 143 H Lactic Acid Calcium Phosphorus Magnesium AST ALT Lactate Dehydrogenase CK-MB (CK-2) C-Reactive Protein NT-Pro-B Natriuret Pep Total Protein Albumin Urine WBC (Auto) 12/01/19 12/01/19 12/01/19 01:18 05:22 12:16 WBC RBC Hgb Hct MCHC RDW Lymph % (Auto) [place] % (Auto) [place] # Eos # [place] # (Auto) Eos # (Auto) Seg Neutrophils % Seg Neuts % (Manual) Baso # (Auto) Lymphocytes % (Manual) Monocytes % (Manual) Eosinophils % (Manual) Basophils % (Manual) Seg Neutrophils # Seg Neutrophils # Man Lymphocytes # (Manual) Monocytes # (Manual) Eosinophils # (Manual) Basophils # (Manual) Heparin Anti-Xa Level ABG pH POC ABG pO2 ABG pO2 ABG HCO3 ABG O2 Saturation ABG Base Excess ABG Hemoglobin ABG Oxyhemoglobin Oxyhemoglobin Sodium Potassium 3.5 L Chloride 107.8 H Carbon Dioxide BUN 37 H Creatinine Glucose 157 H POC Glucose 118 H 148 H Lactic Acid Calcium 8.2 L D Phosphorus Magnesium AST 48 H ALT 60 H Lactate Dehydrogenase 194 H CK-MB (CK-2) C-Reactive Protein 8.50 H NT-Pro-B Natriuret Pep Total Protein 5.5 L Albumin 2.8 L Urine WBC (Auto) 12/01/19 12/02/19 12/02/19 18:04 00:05 05:16 WBC 11.4 H RBC Hgb Hct MCHC RDW 15.9 H Lymph % (Auto) [place] % (Auto) 9.9 H [place] # 1.1 H Eos # [place] # (Auto) Eos # (Auto) Seg Neutrophils % 70.3 H Seg Neuts % (Manual) Baso # (Auto) Lymphocytes % (Manual) Monocytes % (Manual) Eosinophils % (Manual) Basophils % (Manual) Seg Neutrophils # 8.0 H Seg Neutrophils # Man Lymphocytes # (Manual) Monocytes # (Manual) Eosinophils # (Manual) Basophils # (Manual) Heparin Anti-Xa Level ABG pH POC ABG pO2 ABG pO2 ABG HCO3 ABG O2 Saturation ABG Base Excess ABG Hemoglobin ABG Oxyhemoglobin Oxyhemoglobin Sodium Potassium Chloride Carbon Dioxide BUN Creatinine Glucose POC Glucose 143 H 107 H Lactic Acid Calcium Phosphorus Magnesium AST ALT Lactate Dehydrogenase CK-MB (CK-2) C-Reactive Protein NT-Pro-B Natriuret Pep Total Protein Albumin Urine WBC (Auto) 12/02/19 12/02/19 12/02/19 05:16 06:03 11:52 WBC RBC Hgb Hct MCHC RDW Lymph % (Auto) [place] % (Auto) [place] # Eos # [place] # (Auto) Eos # (Auto) Seg Neutrophils % Seg Neuts % (Manual) Baso # (Auto) Lymphocytes % (Manual) Monocytes % (Manual) Eosinophils % (Manual) Basophils % (Manual) Seg Neutrophils # Seg Neutrophils # Man Lymphocytes # (Manual) Monocytes # (Manual) Eosinophils # (Manual) Basophils # (Manual) Heparin Anti-Xa Level ABG pH POC ABG pO2 ABG pO2 ABG HCO3 ABG O2 Saturation ABG Base Excess ABG Hemoglobin ABG Oxyhemoglobin Oxyhemoglobin Sodium 146 H Potassium Chloride Carbon Dioxide BUN 28 H Creatinine Glucose 123 H POC Glucose 110 H 152 H Lactic Acid Calcium Phosphorus Magnesium AST ALT Lactate Dehydrogenase CK-MB (CK-2) C-Reactive Protein NT-Pro-B Natriuret Pep Total Protein Albumin Urine WBC (Auto) 12/02/19 12/02/19 12/02/19 12:58 17:58 23:36 WBC RBC Hgb Hct MCHC RDW Lymph % (Auto) [place] % (Auto) [place] # Eos # [place] # (Auto) Eos # (Auto) Seg Neutrophils % Seg Neuts % (Manual) Baso # (Auto) Lymphocytes % (Manual) Monocytes % (Manual) Eosinophils % (Manual) Basophils % (Manual) Seg Neutrophils # Seg Neutrophils # Man Lymphocytes # (Manual) Monocytes # (Manual) Eosinophils # (Manual) Basophils # (Manual) Heparin Anti-Xa Level ABG pH POC ABG pO2 78.1 L ABG pO2 ABG HCO3 ABG O2 Saturation ABG Base Excess ABG Hemoglobin ABG Oxyhemoglobin Oxyhemoglobin Sodium Potassium Chloride Carbon Dioxide BUN Creatinine Glucose POC Glucose 120 H 123 H Lactic Acid Calcium Phosphorus Magnesium AST ALT Lactate Dehydrogenase CK-MB (CK-2) C-Reactive Protein NT-Pro-B Natriuret Pep Total Protein Albumin Urine WBC (Auto) 12/03/19 12/03/19 12/03/19 06:03 06:14 11:46 WBC RBC Hgb Hct MCHC RDW Lymph % (Auto) [place] % (Auto) [place] # Eos # [place] # (Auto) Eos # (Auto) Seg Neutrophils % Seg Neuts % (Manual) Baso # (Auto) Lymphocytes % (Manual) Monocytes % (Manual) Eosinophils % (Manual) Basophils % (Manual) Seg Neutrophils # Seg Neutrophils # Man Lymphocytes # (Manual) Monocytes # (Manual) Eosinophils # (Manual) Basophils # (Manual) Heparin Anti-Xa Level ABG pH POC ABG pO2 ABG pO2 ABG HCO3 ABG O2 Saturation ABG Base Excess ABG Hemoglobin ABG Oxyhemoglobin Oxyhemoglobin Sodium Potassium Chloride Carbon Dioxide BUN Creatinine Glucose POC Glucose 142 H 130 H Lactic Acid Calcium Phosphorus Magnesium AST ALT Lactate Dehydrogenase CK-MB (CK-2) C-Reactive Protein NT-Pro-B Natriuret Pep Total Protein Albumin Urine WBC (Auto) 8.0 H 12/03/19 12/03/19 12/04/19 15:50 17:39 00:04 WBC RBC Hgb Hct MCHC RDW Lymph % (Auto) [place] % (Auto) [place] # Eos # [place] # (Auto) Eos # (Auto) Seg Neutrophils % Seg Neuts % (Manual) Baso # (Auto) Lymphocytes % (Manual) Monocytes % (Manual) Eosinophils % (Manual) Basophils % (Manual) Seg Neutrophils # Seg Neutrophils # Man Lymphocytes # (Manual) Monocytes # (Manual) Eosinophils # (Manual) Basophils # (Manual) Heparin Anti-Xa Level ABG pH POC ABG pO2 ABG pO2 ABG HCO3 ABG O2 Saturation ABG Base Excess ABG Hemoglobin ABG Oxyhemoglobin Oxyhemoglobin Sodium Potassium Chloride Carbon Dioxide BUN Creatinine Glucose POC Glucose 146 H 133 H Lactic Acid Calcium Phosphorus 2.40 L Magnesium AST ALT Lactate Dehydrogenase CK-MB (CK-2) C-Reactive Protein NT-Pro-B Natriuret Pep Total Protein Albumin Urine WBC (Auto) 12/04/19 12/04/19 12/04/19 03:58 03:58 05:22 WBC 12.5 H RBC Hgb 11.2 L Hct 35.2 L MCHC RDW 16.0 H Lymph % (Auto) [place] % (Auto) 9.6 H [place] # 1.2 H Eos # 0.5 H [place] # (Auto) Eos # (Auto) Seg Neutrophils % Seg Neuts % (Manual) Baso # (Auto) Lymphocytes % (Manual) Monocytes % (Manual) Eosinophils % (Manual) Basophils % (Manual) Seg Neutrophils # 8.6 H Seg Neutrophils # Man Lymphocytes # (Manual) Monocytes # (Manual) Eosinophils # (Manual) Basophils # (Manual) Heparin Anti-Xa Level ABG pH POC ABG pO2 ABG pO2 ABG HCO3 ABG O2 Saturation ABG Base Excess ABG Hemoglobin ABG Oxyhemoglobin Oxyhemoglobin Sodium 146 H Potassium Chloride 108.6 H Carbon Dioxide BUN 30 H Creatinine 0.7 L Glucose 121 H POC Glucose 132 H Lactic Acid Calcium Phosphorus Magnesium AST ALT Lactate Dehydrogenase CK-MB (CK-2) C-Reactive Protein NT-Pro-B Natriuret Pep Total Protein Albumin Urine WBC (Auto) 12/04/19 12/04/19 12/05/19 13:26 18:43 00:19 WBC RBC Hgb Hct MCHC RDW Lymph % (Auto) [place] % (Auto) [place] # Eos # [place] # (Auto) Eos # (Auto) Seg Neutrophils % Seg Neuts % (Manual) Baso # (Auto) Lymphocytes % (Manual) Monocytes % (Manual) Eosinophils % (Manual) Basophils % (Manual) Seg Neutrophils # Seg Neutrophils # Man Lymphocytes # (Manual) Monocytes # (Manual) Eosinophils # (Manual) Basophils # (Manual) Heparin Anti-Xa Level ABG pH POC ABG pO2 ABG pO2 ABG HCO3 ABG O2 Saturation ABG Base Excess ABG Hemoglobin ABG Oxyhemoglobin Oxyhemoglobin Sodium Potassium Chloride Carbon Dioxide BUN Creatinine Glucose POC Glucose 185 H 156 H 150 H Lactic Acid Calcium Phosphorus Magnesium AST ALT Lactate Dehydrogenase CK-MB (CK-2) C-Reactive Protein NT-Pro-B Natriuret Pep Total Protein Albumin Urine WBC (Auto) 12/05/19 12/05/19 12/05/19 03:37 03:37 05:14 WBC 16.3 H RBC Hgb 11.4 L Hct MCHC RDW 15.6 H Lymph % (Auto) 9.9 L [place] % (Auto) 9.7 H [place] # 1.6 H Eos # [place] # (Auto) Eos # (Auto) Seg Neutrophils % 78.0 H Seg Neuts % (Manual) Baso # (Auto) Lymphocytes % (Manual) Monocytes % (Manual) Eosinophils % (Manual) Basophils % (Manual) Seg Neutrophils # 12.7 H Seg Neutrophils # Man Lymphocytes # (Manual) Monocytes # (Manual) Eosinophils # (Manual) Basophils # (Manual) Heparin Anti-Xa Level ABG pH POC ABG pO2 ABG pO2 ABG HCO3 ABG O2 Saturation ABG Base Excess ABG Hemoglobin ABG Oxyhemoglobin Oxyhemoglobin Sodium 146 H Potassium Chloride 107.2 H Carbon Dioxide BUN 27 H Creatinine 0.7 L Glucose 171 H POC Glucose 168 H Lactic Acid Calcium Phosphorus Magnesium AST ALT Lactate Dehydrogenase CK-MB (CK-2) C-Reactive Protein NT-Pro-B Natriuret Pep Total Protein Albumin Urine WBC (Auto) 12/05/19 12/05/19 12/05/19 12:31 18:10 23:58 WBC RBC Hgb Hct MCHC RDW Lymph % (Auto) [place] % (Auto) [place] # Eos # [place] # (Auto) Eos # (Auto) Seg Neutrophils % Seg Neuts % (Manual) Baso # (Auto) Lymphocytes % (Manual) Monocytes % (Manual) Eosinophils % (Manual) Basophils % (Manual) Seg Neutrophils # Seg Neutrophils # Man Lymphocytes # (Manual) Monocytes # (Manual) Eosinophils # (Manual) Basophils # (Manual) Heparin Anti-Xa Level ABG pH POC ABG pO2 ABG pO2 ABG HCO3 ABG O2 Saturation ABG Base Excess ABG Hemoglobin ABG Oxyhemoglobin Oxyhemoglobin Sodium Potassium Chloride Carbon Dioxide BUN Creatinine Glucose POC Glucose 159 H 198 H 115 H Lactic Acid Calcium Phosphorus Magnesium AST ALT Lactate Dehydrogenase CK-MB (CK-2) C-Reactive Protein NT-Pro-B Natriuret Pep Total Protein Albumin Urine WBC (Auto) 12/06/19 12/06/19 12/06/19 05:24 05:24 05:25 WBC 14.9 H RBC Hgb 10.8 L Hct 34.0 L MCHC RDW 15.6 H Lymph % (Auto) 10.7 L [place] % (Auto) 8.3 H [place] # 1.2 H Eos # [place] # (Auto) Eos # (Auto) Seg Neutrophils % 78.7 H Seg Neuts % (Manual) Baso # (Auto) Lymphocytes % (Manual) Monocytes % (Manual) Eosinophils % (Manual) Basophils % (Manual) Seg Neutrophils # 11.7 H Seg Neutrophils # Man Lymphocytes # (Manual) Monocytes # (Manual) Eosinophils # (Manual) Basophils # (Manual) Heparin Anti-Xa Level ABG pH POC ABG pO2 ABG pO2 ABG HCO3 ABG O2 Saturation ABG Base Excess ABG Hemoglobin ABG Oxyhemoglobin Oxyhemoglobin Sodium 148 H Potassium 5.1 H Chloride 107.6 H Carbon Dioxide BUN 27 H Creatinine 0.7 L Glucose 155 H POC Glucose 157 H Lactic Acid Calcium Phosphorus Magnesium AST ALT Lactate Dehydrogenase CK-MB (CK-2) C-Reactive Protein NT-Pro-B Natriuret Pep Total Protein Albumin Urine WBC (Auto) 12/07/19 12/07/19 12/07/19 00:13 05:34 11:33 WBC RBC Hgb Hct MCHC RDW Lymph % (Auto) [place] % (Auto) [place] # Eos # [place] # (Auto) Eos # (Auto) Seg Neutrophils % Seg Neuts % (Manual) Baso # (Auto) Lymphocytes % (Manual) Monocytes % (Manual) Eosinophils % (Manual) Basophils % (Manual) Seg Neutrophils # Seg Neutrophils # Man Lymphocytes # (Manual) Monocytes # (Manual) Eosinophils # (Manual) Basophils # (Manual) Heparin Anti-Xa Level ABG pH POC ABG pO2 ABG pO2 ABG HCO3 ABG O2 Saturation ABG Base Excess ABG Hemoglobin ABG Oxyhemoglobin Oxyhemoglobin Sodium Potassium Chloride Carbon Dioxide BUN Creatinine Glucose POC Glucose 142 H 111 H 169 H Lactic Acid Calcium Phosphorus Magnesium AST ALT Lactate Dehydrogenase CK-MB (CK-2) C-Reactive Protein NT-Pro-B Natriuret Pep Total Protein Albumin Urine WBC (Auto) 12/07/19 12/07/19 12/07/19 12:41 13:25 18:19 WBC 12.4 H RBC 3.53 L Hgb 10.2 L Hct 32.1 L MCHC RDW 15.3 H Lymph % (Auto) 10.6 L [place] % (Auto) 7.8 H [place] # 1.0 H Eos # [place] # (Auto) Eos # (Auto) Seg Neutrophils % 77.6 H Seg Neuts % (Manual) Baso # (Auto) Lymphocytes % (Manual) Monocytes % (Manual) Eosinophils % (Manual) Basophils % (Manual) Seg Neutrophils # 9.6 H Seg Neutrophils # Man Lymphocytes # (Manual) Monocytes # (Manual) Eosinophils # (Manual) Basophils # (Manual) Heparin Anti-Xa Level ABG pH POC ABG pO2 ABG pO2 ABG HCO3 ABG O2 Saturation ABG Base Excess ABG Hemoglobin ABG Oxyhemoglobin Oxyhemoglobin Sodium 149 H Potassium Chloride 108.4 H Carbon Dioxide BUN 26 H Creatinine 0.6 L Glucose 149 H POC Glucose 164 H Lactic Acid Calcium Phosphorus Magnesium 2.60 H AST 121 H ALT 145 H Lactate Dehydrogenase CK-MB (CK-2) C-Reactive Protein NT-Pro-B Natriuret Pep Total Protein Albumin 2.6 L Urine WBC (Auto) 12/07/19 12/08/19 12/08/19 22:25 00:02 03:55 WBC 13.3 H RBC 3.40 L Hgb 9.7 L Hct 30.8 L MCHC 31 L RDW 15.5 H Lymph % (Auto) [place] % (Auto) 8.1 H [place] # 1.1 H Eos # [place] # (Auto) Eos # (Auto) Seg Neutrophils % 73.0 H Seg Neuts % (Manual) Baso # (Auto) Lymphocytes % (Manual) Monocytes % (Manual) Eosinophils % (Manual) Basophils % (Manual) Seg Neutrophils # 9.7 H Seg Neutrophils # Man Lymphocytes # (Manual) Monocytes # (Manual) Eosinophils # (Manual) Basophils # (Manual) Heparin Anti-Xa Level 0.12 L ABG pH POC ABG pO2 ABG pO2 ABG HCO3 ABG O2 Saturation ABG Base Excess ABG Hemoglobin ABG Oxyhemoglobin Oxyhemoglobin Sodium Potassium Chloride Carbon Dioxide BUN Creatinine Glucose POC Glucose 151 H Lactic Acid Calcium Phosphorus Magnesium AST ALT Lactate Dehydrogenase CK-MB (CK-2) C-Reactive Protein NT-Pro-B Natriuret Pep Total Protein Albumin Urine WBC (Auto) 12/08/19 12/08/19 12/08/19 03:55 05:21 06:01 WBC RBC Hgb Hct MCHC RDW Lymph % (Auto) [place] % (Auto) [place] # Eos # [place] # (Auto) Eos # (Auto) Seg Neutrophils % Seg Neuts % (Manual) Baso # (Auto) Lymphocytes % (Manual) Monocytes % (Manual) Eosinophils % (Manual) Basophils % (Manual) Seg Neutrophils # Seg Neutrophils # Man Lymphocytes # (Manual) Monocytes # (Manual) Eosinophils # (Manual) Basophils # (Manual) Heparin Anti-Xa Level 0.20 L ABG pH POC ABG pO2 ABG pO2 ABG HCO3 ABG O2 Saturation ABG Base Excess ABG Hemoglobin ABG Oxyhemoglobin Oxyhemoglobin Sodium 149 H Potassium Chloride 108.0 H Carbon Dioxide BUN 28 H Creatinine 0.6 L Glucose 144 H POC Glucose 143 H Lactic Acid Calcium Phosphorus Magnesium AST 98 H ALT 145 H Lactate Dehydrogenase CK-MB (CK-2) C-Reactive Protein NT-Pro-B Natriuret Pep Total Protein 6.0 L Albumin 2.4 L Urine WBC (Auto) 12/08/19 12/08/19 12/08/19 12:08 18:11 23:53 WBC RBC Hgb Hct MCHC RDW Lymph % (Auto) [place] % (Auto) [place] # Eos # [place] # (Auto) Eos # (Auto) Seg Neutrophils % Seg Neuts % (Manual) Baso # (Auto) Lymphocytes % (Manual) Monocytes % (Manual) Eosinophils % (Manual) Basophils % (Manual) Seg Neutrophils # Seg Neutrophils # Man Lymphocytes # (Manual) Monocytes # (Manual) Eosinophils # (Manual) Basophils # (Manual) Heparin Anti-Xa Level ABG pH POC ABG pO2 ABG pO2 ABG HCO3 ABG O2 Saturation ABG Base Excess ABG Hemoglobin ABG Oxyhemoglobin Oxyhemoglobin Sodium Potassium Chloride Carbon Dioxide BUN Creatinine Glucose POC Glucose 172 H 122 H 162 H Lactic Acid Calcium Phosphorus Magnesium AST ALT Lactate Dehydrogenase CK-MB (CK-2) C-Reactive Protein NT-Pro-B Natriuret Pep Total Protein Albumin Urine WBC (Auto) 12/09/19 12/09/19 12/09/19 04:03 04:03 05:53 WBC RBC Hgb 9.1 L Hct 28.9 L MCHC RDW Lymph % (Auto) [place] % (Auto) [place] # Eos # [place] # (Auto) Eos # (Auto) Seg Neutrophils % Seg Neuts % (Manual) Baso # (Auto) Lymphocytes % (Manual) Monocytes % (Manual) Eosinophils % (Manual) Basophils % (Manual) Seg Neutrophils # Seg Neutrophils # Man Lymphocytes # (Manual) Monocytes # (Manual) Eosinophils # (Manual) Basophils # (Manual) Heparin Anti-Xa Level 0.15 L ABG pH POC ABG pO2 ABG pO2 ABG HCO3 ABG O2 Saturation ABG Base Excess ABG Hemoglobin ABG Oxyhemoglobin Oxyhemoglobin Sodium Potassium Chloride Carbon Dioxide BUN Creatinine Glucose POC Glucose 124 H Lactic Acid Calcium Phosphorus Magnesium AST ALT Lactate Dehydrogenase CK-MB (CK-2) C-Reactive Protein NT-Pro-B Natriuret Pep Total Protein Albumin Urine WBC (Auto) 12/09/19 12/09/19 12/10/19 09:43 12:41 00:13 WBC RBC Hgb Hct MCHC RDW Lymph % (Auto) [place] % (Auto) [place] # Eos # [place] # (Auto) Eos # (Auto) Seg Neutrophils % Seg Neuts % (Manual) Baso # (Auto) Lymphocytes % (Manual) Monocytes % (Manual) Eosinophils % (Manual) Basophils % (Manual) Seg Neutrophils # Seg Neutrophils # Man Lymphocytes # (Manual) Monocytes # (Manual) Eosinophils # (Manual) Basophils # (Manual) Heparin Anti-Xa Level ABG pH POC ABG pO2 ABG pO2 ABG HCO3 ABG O2 Saturation ABG Base Excess ABG Hemoglobin ABG Oxyhemoglobin Oxyhemoglobin Sodium Potassium Chloride Carbon Dioxide BUN 25 H Creatinine 0.6 L Glucose 131 H POC Glucose 109 H 120 H Lactic Acid Calcium Phosphorus Magnesium AST ALT Lactate Dehydrogenase CK-MB (CK-2) C-Reactive Protein NT-Pro-B Natriuret Pep Total Protein Albumin Urine WBC (Auto) 12/10/19 12/10/19 12/10/19 04:14 04:14 12:00 WBC 13.3 H RBC 3.34 L Hgb 9.6 L Hct 30.4 L MCHC RDW 15.4 H Lymph % (Auto) [place] % (Auto) [place] # Eos # [place] # (Auto) Eos # (Auto) Seg Neutrophils % Seg Neuts % (Manual) 75.0 H Baso # (Auto) Lymphocytes % (Manual) 13.0 L Monocytes % (Manual) 8.0 H Eosinophils % (Manual) Basophils % (Manual) 2.0 H Seg Neutrophils # Seg Neutrophils # Man 10.0 H Lymphocytes # (Manual) Monocytes # (Manual) 1.1 H Eosinophils # (Manual) Basophils # (Manual) 0.3 H Heparin Anti-Xa Level ABG pH POC ABG pO2 ABG pO2 ABG HCO3 ABG O2 Saturation ABG Base Excess ABG Hemoglobin ABG Oxyhemoglobin Oxyhemoglobin Sodium 147 H Potassium Chloride 108.3 H Carbon Dioxide BUN 21 H Creatinine 0.6 L Glucose 104 H POC Glucose 133 H Lactic Acid Calcium Phosphorus Magnesium AST ALT Lactate Dehydrogenase CK-MB (CK-2) C-Reactive Protein NT-Pro-B Natriuret Pep Total Protein Albumin Urine WBC (Auto) 12/10/19 12/10/19 12/11/19 18:44 21:20 00:08 WBC 14.9 H RBC 3.36 L Hgb 9.6 L Hct 30.5 L MCHC RDW 15.4 H Lymph % (Auto) [place] % (Auto) [place] # Eos # [place] # (Auto) Eos # (Auto) Seg Neutrophils % Seg Neuts % (Manual) Baso # (Auto) Lymphocytes % (Manual) Monocytes % (Manual) Eosinophils % (Manual) Basophils % (Manual) Seg Neutrophils # Seg Neutrophils # Man Lymphocytes # (Manual) Monocytes # (Manual) Eosinophils # (Manual) Basophils # (Manual) Heparin Anti-Xa Level ABG pH POC ABG pO2 ABG pO2 ABG HCO3 ABG O2 Saturation ABG Base Excess ABG Hemoglobin ABG Oxyhemoglobin Oxyhemoglobin Sodium Potassium Chloride Carbon Dioxide BUN Creatinine Glucose POC Glucose 119 H 134 H Lactic Acid Calcium Phosphorus Magnesium AST ALT Lactate Dehydrogenase CK-MB (CK-2) C-Reactive Protein NT-Pro-B Natriuret Pep Total Protein Albumin Urine WBC (Auto) 12/11/19 12/11/19 12/11/19 03:54 07:28 08:36 WBC 11.9 H RBC 3.25 L Hgb 9.6 L Hct 29.2 L MCHC RDW 15.7 H Lymph % (Auto) [place] % (Auto) [place] # Eos # [place] # (Auto) Eos # (Auto) Seg Neutrophils % Seg Neuts % (Manual) Baso # (Auto) Lymphocytes % (Manual) Monocytes % (Manual) Eosinophils % (Manual) Basophils % (Manual) Seg Neutrophils # Seg Neutrophils # Man Lymphocytes # (Manual) Monocytes # (Manual) Eosinophils # (Manual) Basophils # (Manual) Heparin Anti-Xa Level 0.10 L 0.16 L ABG pH POC ABG pO2 ABG pO2 ABG HCO3 ABG O2 Saturation ABG Base Excess ABG Hemoglobin ABG Oxyhemoglobin Oxyhemoglobin Sodium Potassium Chloride Carbon Dioxide BUN Creatinine Glucose POC Glucose Lactic Acid Calcium Phosphorus Magnesium AST ALT Lactate Dehydrogenase CK-MB (CK-2) C-Reactive Protein NT-Pro-B Natriuret Pep Total Protein Albumin Urine WBC (Auto) 12/11/19 12/11/19 12/11/19 08:36 11:45 17:15 WBC RBC Hgb Hct MCHC RDW Lymph % (Auto) [place] % (Auto) [place] # Eos # [place] # (Auto) Eos # (Auto) Seg Neutrophils % Seg Neuts % (Manual) Baso # (Auto) Lymphocytes % (Manual) Monocytes % (Manual) Eosinophils % (Manual) Basophils % (Manual) Seg Neutrophils # Seg Neutrophils # Man Lymphocytes # (Manual) Monocytes # (Manual) Eosinophils # (Manual) Basophils # (Manual) Heparin Anti-Xa Level ABG pH POC ABG pO2 ABG pO2 ABG HCO3 ABG O2 Saturation ABG Base Excess ABG Hemoglobin ABG Oxyhemoglobin Oxyhemoglobin Sodium Potassium Chloride Carbon Dioxide BUN Creatinine 0.5 L Glucose 128 H POC Glucose 136 H 109 H Lactic Acid Calcium Phosphorus Magnesium AST ALT Lactate Dehydrogenase CK-MB (CK-2) C-Reactive Protein NT-Pro-B Natriuret Pep Total Protein Albumin Urine WBC (Auto) 12/12/19 12/12/19 12/12/19 00:03 05:53 05:53 WBC RBC Hgb 8.8 L Hct 27.6 L MCHC RDW Lymph % (Auto) [place] % (Auto) [place] # Eos # [place] # (Auto) Eos # (Auto) Seg Neutrophils % Seg Neuts % (Manual) Baso # (Auto) Lymphocytes % (Manual) Monocytes % (Manual) Eosinophils % (Manual) Basophils % (Manual) Seg Neutrophils # Seg Neutrophils # Man Lymphocytes # (Manual) Monocytes # (Manual) Eosinophils # (Manual) Basophils # (Manual) Heparin Anti-Xa Level 0.22 L ABG pH POC ABG pO2 ABG pO2 ABG HCO3 ABG O2 Saturation ABG Base Excess ABG Hemoglobin ABG Oxyhemoglobin Oxyhemoglobin Sodium Potassium Chloride Carbon Dioxide BUN Creatinine Glucose POC Glucose 116 H Lactic Acid Calcium Phosphorus Magnesium AST ALT Lactate Dehydrogenase CK-MB (CK-2) C-Reactive Protein NT-Pro-B Natriuret Pep Total Protein Albumin Urine WBC (Auto) 12/12/19 12/12/19 12/12/19 09:38 12:18 17:44 WBC RBC Hgb Hct MCHC RDW Lymph % (Auto) [place] % (Auto) [place] # Eos # [place] # (Auto) Eos # (Auto) Seg Neutrophils % Seg Neuts % (Manual) Baso # (Auto) Lymphocytes % (Manual) Monocytes % (Manual) Eosinophils % (Manual) Basophils % (Manual) Seg Neutrophils # Seg Neutrophils # Man Lymphocytes # (Manual) Monocytes # (Manual) Eosinophils # (Manual) Basophils # (Manual) Heparin Anti-Xa Level ABG pH POC ABG pO2 ABG pO2 ABG HCO3 ABG O2 Saturation ABG Base Excess ABG Hemoglobin ABG Oxyhemoglobin Oxyhemoglobin Sodium Potassium Chloride Carbon Dioxide BUN Creatinine Glucose POC Glucose 115 H 146 H 146 H Lactic Acid Calcium Phosphorus Magnesium AST ALT Lactate Dehydrogenase CK-MB (CK-2) C-Reactive Protein NT-Pro-B Natriuret Pep Total Protein Albumin Urine WBC (Auto) 12/12/19 12/13/19 12/13/19 23:33 05:32 05:32 WBC 13.1 H RBC 3.27 L Hgb 9.5 L Hct 29.3 L MCHC RDW 15.6 H Lymph % (Auto) [place] % (Auto) [place] # Eos # [place] # (Auto) Eos # (Auto) Seg Neutrophils % Seg Neuts % (Manual) 74.0 H Baso # (Auto) Lymphocytes % (Manual) 8.0 L Monocytes % (Manual) 9.0 H Eosinophils % (Manual) 5.0 H Basophils % (Manual) Seg Neutrophils # Seg Neutrophils # Man 9.7 H Lymphocytes # (Manual) 1.0 L Monocytes # (Manual) 1.2 H Eosinophils # (Manual) 0.7 H Basophils # (Manual) Heparin Anti-Xa Level 0.20 L ABG pH POC ABG pO2 ABG pO2 ABG HCO3 ABG O2 Saturation ABG Base Excess ABG Hemoglobin ABG Oxyhemoglobin Oxyhemoglobin Sodium Potassium Chloride Carbon Dioxide BUN Creatinine Glucose POC Glucose 126 H Lactic Acid Calcium Phosphorus Magnesium AST ALT Lactate Dehydrogenase CK-MB (CK-2) C-Reactive Protein NT-Pro-B Natriuret Pep Total Protein Albumin Urine WBC (Auto) 12/13/19 12/13/19 12/13/19 05:32 05:46 11:57 WBC RBC Hgb Hct MCHC RDW Lymph % (Auto) [place] % (Auto) [place] # Eos # [place] # (Auto) Eos # (Auto) Seg Neutrophils % Seg Neuts % (Manual) Baso # (Auto) Lymphocytes % (Manual) Monocytes % (Manual) Eosinophils % (Manual) Basophils % (Manual) Seg Neutrophils # Seg Neutrophils # Man Lymphocytes # (Manual) Monocytes # (Manual) Eosinophils # (Manual) Basophils # (Manual) Heparin Anti-Xa Level ABG pH POC ABG pO2 ABG pO2 ABG HCO3 ABG O2 Saturation ABG Base Excess ABG Hemoglobin ABG Oxyhemoglobin Oxyhemoglobin Sodium Potassium Chloride Carbon Dioxide 31 H BUN Creatinine 0.6 L Glucose 114 H POC Glucose 118 H 133 H Lactic Acid Calcium Phosphorus Magnesium AST ALT Lactate Dehydrogenase CK-MB (CK-2) C-Reactive Protein NT-Pro-B Natriuret Pep Total Protein Albumin Urine WBC (Auto) 12/13/19 12/13/19 12/14/19 17:44 23:46 05:32 WBC RBC Hgb Hct MCHC RDW Lymph % (Auto) [place] % (Auto) [place] # Eos # [place] # (Auto) Eos # (Auto) Seg Neutrophils % Seg Neuts % (Manual) Baso # (Auto) Lymphocytes % (Manual) Monocytes % (Manual) Eosinophils % (Manual) Basophils % (Manual) Seg Neutrophils # Seg Neutrophils # Man Lymphocytes # (Manual) Monocytes # (Manual) Eosinophils # (Manual) Basophils # (Manual) Heparin Anti-Xa Level ABG pH POC ABG pO2 ABG pO2 ABG HCO3 ABG O2 Saturation ABG Base Excess ABG Hemoglobin ABG Oxyhemoglobin Oxyhemoglobin Sodium Potassium Chloride Carbon Dioxide BUN Creatinine Glucose POC Glucose 161 H 126 H 139 H Lactic Acid Calcium Phosphorus Magnesium AST ALT Lactate Dehydrogenase CK-MB (CK-2) C-Reactive Protein NT-Pro-B Natriuret Pep Total Protein Albumin Urine WBC (Auto) 12/14/19 12/14/19 12/14/19 06:03 06:03 09:37 WBC RBC Hgb 9.6 L Hct 30.4 L MCHC RDW Lymph % (Auto) [place] % (Auto) [place] # Eos # [place] # (Auto) Eos # (Auto) Seg Neutrophils % Seg Neuts % (Manual) Baso # (Auto) Lymphocytes % (Manual) Monocytes % (Manual) Eosinophils % (Manual) Basophils % (Manual) Seg Neutrophils # Seg Neutrophils # Man Lymphocytes # (Manual) Monocytes # (Manual) Eosinophils # (Manual) Basophils # (Manual) Heparin Anti-Xa Level 0.24 L ABG pH POC ABG pO2 ABG pO2 ABG HCO3 ABG O2 Saturation ABG Base Excess ABG Hemoglobin ABG Oxyhemoglobin Oxyhemoglobin Sodium Potassium Chloride Carbon Dioxide BUN Creatinine 0.6 L Glucose 162 H POC Glucose Lactic Acid Calcium Phosphorus Magnesium AST 71 H ALT 118 H Lactate Dehydrogenase CK-MB (CK-2) C-Reactive Protein NT-Pro-B Natriuret Pep Total Protein 6.2 L Albumin 2.3 L Urine WBC (Auto) 12/14/19 12/14/19 12/15/19 12:06 18:18 00:19 WBC RBC Hgb Hct MCHC RDW Lymph % (Auto) [place] % (Auto) [place] # Eos # [place] # (Auto) Eos # (Auto) Seg Neutrophils % Seg Neuts % (Manual) Baso # (Auto) Lymphocytes % (Manual) Monocytes % (Manual) Eosinophils % (Manual) Basophils % (Manual) Seg Neutrophils # Seg Neutrophils # Man Lymphocytes # (Manual) Monocytes # (Manual) Eosinophils # (Manual) Basophils # (Manual) Heparin Anti-Xa Level ABG pH POC ABG pO2 ABG pO2 ABG HCO3 ABG O2 Saturation ABG Base Excess ABG Hemoglobin ABG Oxyhemoglobin Oxyhemoglobin Sodium Potassium Chloride Carbon Dioxide BUN Creatinine Glucose POC Glucose 147 H 166 H 123 H Lactic Acid Calcium Phosphorus Magnesium AST ALT Lactate Dehydrogenase CK-MB (CK-2) C-Reactive Protein NT-Pro-B Natriuret Pep Total Protein Albumin Urine WBC (Auto) 12/15/19 12/15/19 12/15/19 05:28 05:29 05:29 WBC 14.9 H RBC 3.19 L Hgb 9.1 L Hct 28.7 L MCHC RDW 16.0 H Lymph % (Auto) [place] % (Auto) [place] # Eos # [place] # (Auto) Eos # (Auto) Seg Neutrophils % Seg Neuts % (Manual) Baso # (Auto) Lymphocytes % (Manual) Monocytes % (Manual) Eosinophils % (Manual) Basophils % (Manual) Seg Neutrophils # Seg Neutrophils # Man Lymphocytes # (Manual) Monocytes # (Manual) Eosinophils # (Manual) Basophils # (Manual) Heparin Anti-Xa Level 0.19 L ABG pH POC ABG pO2 ABG pO2 ABG HCO3 ABG O2 Saturation ABG Base Excess ABG Hemoglobin ABG Oxyhemoglobin Oxyhemoglobin Sodium Potassium Chloride Carbon Dioxide BUN Creatinine 0.6 L Glucose 110 H POC Glucose Lactic Acid Calcium Phosphorus Magnesium AST ALT Lactate Dehydrogenase CK-MB (CK-2) C-Reactive Protein NT-Pro-B Natriuret Pep Total Protein Albumin Urine WBC (Auto) 12/15/19 12/15/19 12/15/19 05:53 11:50 17:26 WBC RBC Hgb Hct MCHC RDW Lymph % (Auto) [place] % (Auto) [place] # Eos # [place] # (Auto) Eos # (Auto) Seg Neutrophils % Seg Neuts % (Manual) Baso # (Auto) Lymphocytes % (Manual) Monocytes % (Manual) Eosinophils % (Manual) Basophils % (Manual) Seg Neutrophils # Seg Neutrophils # Man Lymphocytes # (Manual) Monocytes # (Manual) Eosinophils # (Manual) Basophils # (Manual) Heparin Anti-Xa Level ABG pH POC ABG pO2 ABG pO2 ABG HCO3 ABG O2 Saturation ABG Base Excess ABG Hemoglobin ABG Oxyhemoglobin Oxyhemoglobin Sodium Potassium Chloride Carbon Dioxide BUN Creatinine Glucose POC Glucose 119 H 132 H 128 H Lactic Acid Calcium Phosphorus Magnesium AST ALT Lactate Dehydrogenase CK-MB (CK-2) C-Reactive Protein NT-Pro-B Natriuret Pep Total Protein Albumin Urine WBC (Auto) 12/15/19 12/16/19 12/16/19 23:11 05:30 05:46 WBC RBC Hgb 8.8 L Hct 27.9 L MCHC RDW Lymph % (Auto) [place] % (Auto) [place] # Eos # [place] # (Auto) Eos # (Auto) Seg Neutrophils % Seg Neuts % (Manual) Baso # (Auto) Lymphocytes % (Manual) Monocytes % (Manual) Eosinophils % (Manual) Basophils % (Manual) Seg Neutrophils # Seg Neutrophils # Man Lymphocytes # (Manual) Monocytes # (Manual) Eosinophils # (Manual) Basophils # (Manual) Heparin Anti-Xa Level ABG pH POC ABG pO2 ABG pO2 ABG HCO3 ABG O2 Saturation ABG Base Excess ABG Hemoglobin ABG Oxyhemoglobin Oxyhemoglobin Sodium Potassium Chloride Carbon Dioxide BUN Creatinine Glucose POC Glucose 150 H 134 H Lactic Acid Calcium Phosphorus Magnesium AST ALT Lactate Dehydrogenase CK-MB (CK-2) C-Reactive Protein NT-Pro-B Natriuret Pep Total Protein Albumin Urine WBC (Auto) 12/16/19 12/16/19 12/16/19 05:46 05:46 11:44 WBC RBC Hgb Hct MCHC RDW Lymph % (Auto) [place] % (Auto) [place] # Eos # [place] # (Auto) Eos # (Auto) Seg Neutrophils % Seg Neuts % (Manual) Baso # (Auto) Lymphocytes % (Manual) Monocytes % (Manual) Eosinophils % (Manual) Basophils % (Manual) Seg Neutrophils # Seg Neutrophils # Man Lymphocytes # (Manual) Monocytes # (Manual) Eosinophils # (Manual) Basophils # (Manual) Heparin Anti-Xa Level 0.20 L ABG pH POC ABG pO2 ABG pO2 ABG HCO3 ABG O2 Saturation ABG Base Excess ABG Hemoglobin ABG Oxyhemoglobin Oxyhemoglobin Sodium Potassium Chloride Carbon Dioxide 31 H BUN Creatinine 0.5 L Glucose 147 H POC Glucose 164 H Lactic Acid Calcium Phosphorus Magnesium AST ALT Lactate Dehydrogenase CK-MB (CK-2) C-Reactive Protein NT-Pro-B Natriuret Pep Total Protein Albumin Urine WBC (Auto) 12/16/19 12/16/19 12/17/19 17:17 23:49 05:30 WBC 13.9 H RBC 3.27 L Hgb 9.4 L Hct 29.2 L MCHC RDW 16.0 H Lymph % (Auto) [place] % (Auto) 8.8 H [place] # Eos # [place] # (Auto) 1.2 H Eos # (Auto) 0.5 H Seg Neutrophils % 70.5 H Seg Neuts % (Manual) Baso # (Auto) 0.2 H Lymphocytes % (Manual) Monocytes % (Manual) Eosinophils % (Manual) Basophils % (Manual) Seg Neutrophils # 9.8 H Seg Neutrophils # Man Lymphocytes # (Manual) Monocytes # (Manual) Eosinophils # (Manual) Basophils # (Manual) Heparin Anti-Xa Level ABG pH POC ABG pO2 ABG pO2 ABG HCO3 ABG O2 Saturation ABG Base Excess ABG Hemoglobin ABG Oxyhemoglobin Oxyhemoglobin Sodium Potassium Chloride Carbon Dioxide BUN Creatinine Glucose POC Glucose 162 H 144 H Lactic Acid Calcium Phosphorus Magnesium AST ALT Lactate Dehydrogenase CK-MB (CK-2) C-Reactive Protein NT-Pro-B Natriuret Pep Total Protein Albumin Urine WBC (Auto) 12/17/19 12/17/19 12/17/19 05:30 06:06 11:50 WBC RBC Hgb Hct MCHC RDW Lymph % (Auto) [place] % (Auto) [place] # Eos # [place] # (Auto) Eos # (Auto) Seg Neutrophils % Seg Neuts % (Manual) Baso # (Auto) Lymphocytes % (Manual) Monocytes % (Manual) Eosinophils % (Manual) Basophils % (Manual) Seg Neutrophils # Seg Neutrophils # Man Lymphocytes # (Manual) Monocytes # (Manual) Eosinophils # (Manual) Basophils # (Manual) Heparin Anti-Xa Level ABG pH POC ABG pO2 ABG pO2 ABG HCO3 ABG O2 Saturation ABG Base Excess ABG Hemoglobin ABG Oxyhemoglobin Oxyhemoglobin Sodium Potassium Chloride 97.4 L Carbon Dioxide 32 H BUN Creatinine 0.5 L Glucose 135 H POC Glucose 151 H 140 H Lactic Acid Calcium Phosphorus Magnesium AST ALT Lactate Dehydrogenase CK-MB (CK-2) C-Reactive Protein NT-Pro-B Natriuret Pep Total Protein Albumin Urine WBC (Auto) Chest x-ray: pending Allied health notes reviewed: nursing
--- NOTE | 2019-12-17 15:52 | Progress Note ---
Assessment and Plan Assessment and plan: Acute LLL PE -Acute RLE DVT -Persistent fevers; secondary to sepsis and acute PE/DVT -Severe sepsis; secondary to bilateral pneumonia, persistent fevers -Acute hypoxemic respiratory failure, on vent unable to wean -Bilateral pneumonia, community acquired, -Aspiration Pneumonia -Sustained SVT, on amiodarone -Acute on chronic systolic congestive heart failure -History of cerebrovascular accident. -Tobacco use disorder -Alcohol abuse with DT -Acute chronic obstructive pulmonary disease exacerbation. -Hypertension and hypertensive urgency at presentation. -History of arthritis. -Paroxysmal atrial fibrillation -Leukocytosis with possible sepsis. -Lactic acidosis. -Bleeding from ET tube -Oropharyngeal dysphagia -S/P Knee surgery -History of peptic Ulcer Surgery -DVT prophylaxis COVID-19 test; 11/24/2019; negative 11/26/2019; negative Plan Continue ventilatory support Wean as tolerated as per critical care Completed abx, ID following Continue anti-failure medications, cardiology following cont Steroids, Continue diuresis as needed Aspiration precautions Continue amiodarone and metoprolol for suppression of paroxysmal atrial fibrillation. Anticoagulation currently is with intravenous heparin. DVT/GI prophy Heparin/Protonix Plan of care reviewed with the patient's nurse Closely monitor the patient and adjust management as needed The high probability of a clinically significant, sudden or life threatening deterioration of the [Respiratory, cardiovascular & neurological] system(s) required my full and direct attention, intervention and personal management. The aggregate critical care time was [33] minutes without overlap. Time includes spent on [x] Data Review and interpretation [x] Patient assessment and monitoring of vital signs [x] Documentation [x] Medication orders and management Brief History Patient is a 64-year-old male with known history of hypertension, COPD, history of coronary artery disease, CHF with ejection fraction of 20 to 25% in August 2018 presenting to the emergency room via EMS complaining of shortness of breath. Patient was found to be hypoxic and in respiratory distress. Patient was placed on CPAP in route to the hospital. Oxygen saturation was said to be 88%. Started on Solu-Medrol, Lasix and magnesium in ED, patient was also found to be lethargic with an oxygen saturation of about 91% on CPAP. He was subsequently intubated. Work-up in the emergency room including chest x-ray reveals bilateral pneumonia. He had an elevated white count of 14 and also had an elevated BNP. Patient to be admitted to the ICU and placed on empiric IV antibiotics for p neumonia. He will also be tested positive for COVID-19 and placed on isolation precautions. Rmains intubated on ventilatory support, sputum cultures positive for Pseudomonas, ID changed antibiotics to cefepime and Vanco. 11/25: Leukocytosis improving. Continue current management anticipate extubation possible today. 11/26. Still intubated. Failed SBT yesterday. Repeat COVID-19 test is negative. 11/27. CT head ordered for possible neuro status change is negative. More responsive as the day progressed as per RN. Chest xray today shows interval improvement. He is still on antibiotics - will complete regimen today. 11/28: Considering difficult extubation and severe cardiomyopathy, will obtain cardiology consult. Aspiration precautions, tube feeds held, continue antibiotics. 11/29: Still with intermittent fever but improving imaging, continue diuresis. 11/30; Extremely agitated when placed on PSV- SVT, hypertension. Patiet acknowledged that he drinks. IV Ativan given, CIWA protocol initiated. 12 lead ordered showed SVT, one dose of amiodarone ordered. continue to follow up cardiology recommendation 12/01: Patient remains on mechanical ventilation, getting SBT trial. Remains in SVT, started on amiodarone drip by cardiology. 12/02; patient is on mechanical ventilation and on spontaneous breathing trial. Cardiology started the patient on PO amiodarone. Patient is on cefepime. 12/03: patient is on mechanical ventilation. Cardiology started the patient on PO amiodarone for SVT. Patient is on cefepime, no fever overnight. 12/04: Patient is sedated and on mechanical ventilation. Patient had fever yesterday afternoon 102.3, ID changed his cefepime to meropenem. Heart rate is controlled, cardiology is following. Patient has paroxysmal atrial fibrillation and on amiodarone and metoprolol, subcu heparin for anticoagulation and will need oral anticoagulation once stable. 12/05: Sputum cultures positive for Pseudomonas, ID following 12/06; patient is febrile T-max 24 hours 102 F ,ID change antibiotics to cefepime and Vancomycin 12/07: resumed care. Na 149 today, start on 1/2 NS. cont current care 12/08: remains in a stable sinus rhythm and stable blood pressure, continue supportive care. wean off vent as tolerated. persistent fever - ordered CTA chest 12/09: noted bloody discharges from ET tube last night. CTA and LE venous doppler positive for acute PE and DVT. resume heparin drip, consult vascular for possible EKOS/ IVC filter. monitor h/h. cont SBT trial, wean off vent as figueroa erated. called but no answer 12/10: cont heparin drip for acute PE and DVT, follow vascular recommendation. monitor h/h, wean off vent as tolerated 12/11: o/n had bleeding from ET tube, cont to monitor h/h. vascular recommending medical Mx. called ; Nicolle Araiza [phone]. 12/12: H&H remained stable, patient on heparin drip. Discussed with yesterday. Discussed with critical care attending. Patient not tolerating SBT trial. Continue to wean off from vent as tolerated, follow clinically. Tolerating tube feeding 12/13: Continue heparin drip, wean off from vent as tolerated. Discussed with pulmonary attending if no improvement by the end of 3 weeks of intubation patient may need trach and PEG. Continue to provide supportive care, follow CBC and BMP. 12/14: Stop cefepime today, wean off from vent as tolerated. cont Heparin infusion, while monitoring for bleeding 12/15: Patient is not tolerating SBT trial, becoming apnic on CPAP. May need to place on trach and PEG. Continue heparin drip, monitor off antibiotics 12/16. Awaiting cultures. Still maintained on vent. History Interval history: No change in medical condition. Still remains intubated. COVID-19 test negative. Hospitalist Physical - Constitutional Vitals: Temp Pulse Resp BP Pulse Ox 98.3 F 96 H 13 132/81 95 12/17/19 07:45 12/17/19 15:15 12/17/19 11:00 12/17/19 15:15 12/17/19 13:00 General appearance: Present: no acute distress, well-nourished - Respiratory Respiratory: bilateral: diminished - Cardiovascular Heart Sounds: Present: S1 & S2 - Abdominal General gastrointestinal: soft, non-tender, non-distended, normal bowel sounds - Neurologic Neurologic: other (Sedated) HEART Score - HEART Score Troponin: Troponin T < 0.010 ng/mL (0.00-0.029) 11/24/19 02:53 Results - Labs CBC & Chem 7: 12/17/19 05:30 12/17/19 05:30 Labs: Laboratory Last Values WBC 13.9 K/mm3 (4.5-11.0) H 12/17/19 05:30 RBC 3.27 M/mm3 (3.65-5.03) L 12/17/19 05:30 Hgb 9.4 gm/dl (11.8-15.2) L 12/17/19 05:30 Hct 29.2 % (35.5-45.6) L 12/17/19 05:30 MCV 89 fl (84-94) 12/17/19 05:30 MCH 29 pg (28-32) 12/17/19 05:30 MCHC 32 % (32-34) 12/17/19 05:30 RDW 16.0 % (13.2-15.2) H 12/17/19 05:30 Plt Count 313 K/mm3 (140-440) 12/17/19 05:30 Lymph % (Auto) 15.4 % (13.4-35.0) 12/17/19 05:30 [place] % (Auto) 8.8 % (0.0-7.3) H 12/17/19 05:30 Eos % (Auto) 3.8 % (0.0-4.3) 12/17/19 05:30 Baso % (Auto) 1.5 % (0.0-1.8) 12/17/19 05:30 Add Manual Diff Complete 12/13/19 05:32 Lymph # (Auto) 2.1 K/mm3 (1.2-5.4) 12/17/19 05:30 [place] # (Auto) 1.2 K/mm3 (0.0-0.8) H 12/17/19 05:30 Total Counted 100 12/13/19 05:32 Eos # (Auto) 0.5 K/mm3 (0.0-0.4) H 12/17/19 05:30 Seg Neuts % (Manual) 74.0 % (40.0-70.0) H 12/13/19 05:32 Baso # (Auto) 0.2 K/mm3 (0.0-0.1) H 12/17/19 05:30 Band Neutrophils % 1.0 % 12/13/19 05:32 Lymphocytes % (Manual) 8.0 % (13.4-35.0) L 12/13/19 05:32 Reactive Lymphs % (Man) 2.0 % 12/13/19 05:32 Monocytes % (Manual) 9.0 % (0.0-7.3) H 12/13/19 05:32 Eosinophils % (Manual) 5.0 % (0.0-4.3) H 12/13/19 05:32 Basophils % (Manual) 1.0 % (0.0-1.8) 12/13/19 05:32 Metamyelocytes % 0 % 12/13/19 05:32 Myelocytes % 0 % 12/13/19 05:32 Promyelocytes % 0 % 12/13/19 05:32 Blast Cells % 0 % 12/13/19 05:32 Nucleated RBC % Not Reportable 12/13/19 05:32 Seg Neutrophils % 70.5 % (40.0-70.0) H 12/17/19 05:30 Seg Neutrophils # Man 9.7 K/mm3 (1.8-7.7) H 12/13/19 05:32 Band Neutrophils # 0.1 K/mm3 12/13/19 05:32 Lymphocytes # (Manual) 1.0 K/mm3 (1.2-5.4) L 12/13/19 05:32 Abs React Lymphs (Man) 0.3 K/mm3 12/13/19 05:32 Monocytes # (Manual) 1.2 K/mm3 (0.0-0.8) H 12/13/19 05:32 Eosinophils # (Manual) 0.7 K/mm3 (0.0-0.4) H 12/13/19 05:32 Basophils # (Manual) 0.1 K/mm3 (0.0-0.1) 12/13/19 05:32 Metamyelocytes # 0.0 K/mm3 12/13/19 05:32 Myelocytes # 0.0 K/mm3 12/13/19 05:32 Promyelocytes # 0.0 K/mm3 12/13/19 05:32 Blast Cells # 0.0 K/mm3 12/13/19 05:32 Seg Neutrophils # 9.8 K/mm3 (1.8-7.7) H 12/17/19 05:30 WBC Morphology Not Reportable 12/13/19 05:32 Hypersegmented Neuts Not Reportable 12/13/19 05:32 Hyposegmented Neuts Not Reportable 12/13/19 05:32 Hypogranular Neuts Not Reportable 12/13/19 05:32 Smudge Cells Not Reportable 12/13/19 05:32 Toxic Granulation Not Reportable 12/13/19 05:32 Toxic Vacuolation Not Reportable 12/13/19 05:32 Dohle Bodies Not Reportable 12/13/19 05:32 Pelger-Huet Anomaly Not Reportable 12/13/19 05:32 Hector Rods Not Reportable 12/13/19 05:32 Platelet Estimate Consistent w auto 12/13/19 05:32 Clumped Platelets Not Reportable 12/13/19 05:32 Plt Clumps, EDTA Not Reportable 12/13/19 05:32 Large Platelets Not Reportable 12/13/19 05:32 Giant Platelets Not Reportable 12/13/19 05:32 Platelet Satelliting Not Reportable 12/13/19 05:32 Plt Morphology Comment Not Reportable 12/13/19 05:32 RBC Morphology Not Reportable 12/13/19 05:32 Dimorphic RBCs Not Reportable 12/13/19 05:32 Polychromasia Not Reportable 12/13/19 05:32 Hypochromasia Not Reportable 12/13/19 05:32 Poikilocytosis Not Reportable 12/13/19 05:32 Anisocytosis 1+ 12/13/19 05:32 Microcytosis Not Reportable 12/13/19 05:32 Macrocytosis Not Reportable 12/13/19 05:32 Spherocytes Not Reportable 12/13/19 05:32 Pappenheimer Bodies Not Reportable 12/13/19 05:32 Sickle Cells Not Reportable 12/13/19 05:32 Target Cells Not Reportable 12/13/19 05:32 Tear Drop Cells Not Reportable 12/13/19 05:32 Ovalocytes Not Reportable 12/13/19 05:32 Helmet Cells Not Reportable 12/13/19 05:32 Gottlieb-Hensley Bodies Not Reportable 12/13/19 05:32 [place] Rings Not Reportable 12/13/19 05:32 Oc Cells Not Reportable 12/13/19 05:32 Bite Cells Not Reportable 12/13/19 05:32 Crenated Cell Not Reportable 12/13/19 05:32 Elliptocytes Not Reportable 12/13/19 05:32 Acanthocytes (Spur) Not Reportable 12/13/19 05:32 Rouleaux Not Reportable 12/13/19 05:32 Hemoglobin C Crystals Not Reportable 12/13/19 05:32 Schistocytes Not Reportable 12/13/19 05:32 Malaria parasites Not Reportable 12/13/19 05:32 Clifford Bodies Not Reportable 12/13/19 05:32 Hem Pathologist Commnt No 12/13/19 05:32 PT 14.0 Sec. (12.2-14.9) 12/10/19 21:20 INR 1.06 (0.87-1.13) 12/10/19 21:20 APTT 28.6 Sec. (24.2-36.6) 12/07/19 14:51 Heparin Anti-Xa Level 0.33 U.I./ml (0.3-0.7) 12/17/19 05:30 ABG pH 7.439 (7.320-7.450) 12/02/19 12:58 POC ABG pCO2 45.1 mmHg (32.0-48.0) 12/02/19 12:58 ABG pCO2 43.4 mm Hg 11/30/19 04:56 POC ABG pO2 78.1 mmHg (83-108) L 12/02/19 12:58 ABG pO2 56.3 mm Hg (80.0-90.0) L 11/30/19 04:56 POC ABG HCO3 29.9 12/02/19 12:58 ABG HCO3 29.3 mmol/L (20.0-26.0) H 11/30/19 04:56 ABG O2 Saturation 91.5 % (95.0-99.0) L 11/30/19 04:56 ABG O2 Content 15.1 (0.0-44) 11/30/19 04:56 POC ABG Base Excess 5.0 12/02/19 12:58 ABG Base Excess 4.7 mmol/L (-2.0-3.0) H 11/30/19 04:56 ABG Hemoglobin 13.6 (12.0-17.5) 12/02/19 12:58 ABG Oxyhemoglobin 94.7 (94-98) 12/02/19 12:58 ABG Carboxyhemoglobin 2.2 % (0.0-5.0) 11/30/19 04:56 ABG Methemoglobin 0 (0.0-1.5) 12/02/19 12:58 Oxyhemoglobin 89.2 % (95.0-99.0) L 11/30/19 04:56 Carboxyhemoglobin 1.3 (0.5-1.5) 12/02/19 12:58 FiO2 50 12/02/19 12:58 Sodium 138 mmol/L (137-145) 12/17/19 05:30 Potassium 4.6 mmol/L (3.6-5.0) 12/17/19 05:30 Chloride 97.4 mmol/L (98-107) L 12/17/19 05:30 Carbon Dioxide 32 mmol/L (22-30) H 12/17/19 05:30 Anion Gap 13 mmol/L 12/17/19 05:30 BUN 20 mg/dL (9-20) 12/17/19 05:30 Creatinine 0.5 mg/dL (0.8-1.3) L 12/17/19 05:30 Estimated GFR > 60 ml/min 12/17/19 05:30 BUN/Creatinine Ratio 40 % 12/17/19 05:30 Glucose 135 mg/dL (75-100) H 12/17/19 05:30 POC Glucose 140 (70-105) H 12/17/19 11:50 Lactic Acid 2.50 mmol/L (0.7-2.0) H* 11/24/19 10:37 Phosphorus 2.60 mg/dL (2.5-4.5) 12/06/19 05:24 Magnesium 2.60 mg/dL (1.7-2.3) H 12/07/19 12:41 Calcium 9.5 mg/dL (8.4-10.2) 12/17/19 05:30 Ferritin 84.4 ng/mL (30.0-300.0) 11/24/19 04:53 Total Bilirubin 0.40 mg/dL (0.1-1.2) 12/14/19 09:37 Direct Bilirubin < 0.2 mg/dL (0-0.2) 12/08/19 03:55 Indirect Bilirubin 0.2 mg/dL 12/08/19 03:55 AST 71 units/L (5-40) H 12/14/19 09:37 ALT 118 units/L (7-56) H 12/14/19 09:37 Alkaline Phosphatase 79 units/L (35-129) 12/14/19 09:37 Lactate Dehydrogenase 194 units/L (91-180) H 12/01/19 12:16 Total Creatine Kinase 141 units/L (55-170) 11/24/19 02:53 CK-MB (CK-2) 4.3 ng/mL (0.0-4.0) H 11/24/19 02:53 CK-MB (CK-2) Rel Index 3.0 (0-4) 11/24/19 02:53 Troponin T < 0.010 ng/mL (0.00-0.029) 11/24/19 02:53 C-Reactive Protein 8.50 mg/dL (0.00-1.30) H 12/01/19 12:16 NT-Pro-B Natriuret Pep 286.1 pg/mL (0-900) 11/29/19 15:37 Total Protein 6.2 g/dL (6.3-8.2) L 12/14/19 09:37 Albumin 2.3 g/dL (3.9-5) L 12/14/19 09:37 Albumin/Globulin Ratio 0.6 % 12/14/19 09:37 Procalcitonin 0.67 ng/mL (<0.15) 12/07/19 12:41 Urine Color Cecy (Yellow) 12/03/19 06:03 Urine Turbidity Clear (Clear) 12/03/19 06:03 Urine pH 5.0 (5.0-7.0) 12/03/19 06:03 Ur Specific Dime Box 1.030 (1.003-1.030) 12/03/19 06:03 Urine Protein <15 mg/dl mg/dL (Negative) 12/03/19 06:03 Urine Glucose (UA) Neg mg/dL (Negative) 12/03/19 06:03 Urine Ketones Neg mg/dL (Negative) 12/03/19 06:03 Urine Blood Neg (Negative) 12/03/19 06:03 Urine Nitrite Neg (Negative) 12/03/19 06:03 Urine Bilirubin Neg (Negative) 12/03/19 06:03 Urine Urobilinogen 4.0 mg/dL (<2.0) 12/03/19 06:03 Ur Leukocyte Esterase Neg (Negative) 12/03/19 06:03 Urine WBC (Auto) 8.0 /HPF (0.0-6.0) H 12/03/19 06:03 Urine RBC (Auto) 2.0 /HPF (0.0-6.0) 12/03/19 06:03 Urine Bacteria (Auto) 1+ /HPF (Negative) 12/03/19 06:03 Urine Mucus 1+ /HPF 12/03/19 06:03 Vancomycin Trough 14.2 ug/mL (5.0-20.0) 12/13/19 15:01 Coronavirus (PCR) Negative (Negative) 11/26/19 08:26 - Diagnostic Impressions Diagnostic Impressions: Echocardiogram 11/29/19 07:37 Transthoracic Echocardiogram Indication: CHF BP: 116/72 HR: 33 Conclusions *The study is technically limited due to poor acoustic windows. *Global left ventricular systolic function is normal. *The estimated ejection fraction is 50-55%. *Mild concentric left ventricular hypertrophy is observed. *There is trace of mitral regurgitation. *There is mild tricuspid regurgitation. Findings Procedure Info: The study quality is poor. The study is technically limited due to poor acoustic windows. The study is technically limited due to patient body habitus. Left Ventricle: The left ventricular chamber size is normal. Mild concentric left ventricular hypertrophy is observed. Global left ventricular systolic function is normal. The estimated ejection fraction is 50-55%. Left Atrium: The left atrial chamber size is normal. Right Ventricle: The right ventricular cavity size is normal. Right Atrium: The right atrial cavity size is normal. Aortic Valve: The aortic valve leaflets are moderately thickened. There is trace of aortic regurgitation. There is no evidence of aortic stenosis. Mitral Valve: The mitral valve leaflets are mildly thickened. There is trace of mitral regurgitation. There is no evidence of mitral stenosis. Tricuspid Valve: There is mild tricuspid regurgitation. No pulmonary hypertension is noted. Pulmonic Valve: There is trace pulmonic regurgitation. Pericardium: There is no pericardial effusion. Aorta: There is no dilatation of the aortic root. Venous: The inferior vena cava appears normal in size. Contrast: Definity was used to optimize study. Intravenous contrast was used to enhance endocardial border definition. Measurements Chambers 2D Name Value Normal Range Ao root diameter (2D) 3.4 cm (2 - 3.7) Aortic Valve Name Value Normal Range AV Vmax 0.98 m/sec - AV VTI 16.76 cm - AV peak gradient 3.83 mmHg - AV mean gradient 2.57 mmHg - LVOT diameter 3.11 cm - LVOT Vmax 0.68 m/sec - LVOT VTI 11.52 cm - LVOT peak gradient 1.84 mmHg - LVOT mean gradient 1.27 mmHg - SV LVOT 87.31 ml - MALOU (continuity Vmax) 5.24 cm2 - MALOU (continuity VTI) 5.21 cm2 - Tricuspid Valve Name Value Normal Range IVC diameter 2.24 cm (1.2 - 2.3) Hoffman/IV: Voiding Method Indwelling Catheter IV Catheter Type [Right Upper INT / Saline Lock arm] IV Catheter Type [Left Upper Mid-line arm] IV Catheter Type [Left Forearm Peripheral IV ] IV Catheter Type [Left Hand] INT / Saline Lock IV Catheter Type [Left Wrist] INT / Saline Lock IV Catheter Type [Right INT / Saline Lock Antecubital] Active Medications - Current Medications Current Medications: Generic Name Dose Route Start Last Admin Trade Name Freq PRN Reason Stop Dose Admin Acetaminophen 650 mg 11/25/19 17:27 12/16/19 00:29 Tylenol FEEDTUBE 650 mg Q6H PRN Administration Pain, Mild (1-3) Amiodarone HCl 200 mg 12/04/19 14:00 12/17/19 10:15 Cordarone PO 200 mg BID CAR Administration Lipase/Protease/Amylase 1 each 12/08/19 12:07 Pancrepetr Betancourt 10,500 Unit FEEDTUBE PRN PRN For Clogged Feeding Tube Docusate Sodium 100 mg 12/02/19 22:00 12/17/19 10:15 Colace FEEDTUBE 100 mg BID CAR Administration Famotidine 20 mg 11/25/19 10:00 12/17/19 10:16 Pepcid PO 20 mg BID CAR Administration Fentanyl 50 mcg 11/24/19 09:55 Sublimaze IV Q10MIN PRN ANALGESIA Haloperidol Lactate 5 mg 12/01/19 10:23 Haldol IV Q1H PRN Unrespon. to mult. doses BZD's Hydrophilic Ointment 1 applic 11/24/19 02:23 Vaseline Lip Therapy TP Q2HR PRN Dry Lips Fentanyl Citrate 2,000 mcg in 100 mls @ 5.67 mls/hr 11/24/19 10:00 12/17/19 15:16 Fentanyl Drip Premix IV 2 mcg/kg/hr TITR CAR 11.34 mls/hr Administration Protocol 1 MCG/KG/HR Propofol 1,000 mg in 100 mls @ 3.402 mls/hr 11/28/19 17:25 Diprivan 10 Mg/Ml IV TITR CAR Protocol 5 MCG/KG/MIN Heparin Sodium/Sodium Chloride 25,000 unit in 500 mls @ 30 mls/hr 12/10/19 19:00 12/17/19 06:19 Heparin/ 0.45% Nacl-25,000 Unit/500 Ml IV 1,500 units/hr TITR CAR 30 mls/hr Administration Protocol 1,500 UNITS/HR Insulin Human Lispro 0 unit 12/05/19 19:00 12/17/19 06:18 Humalog SUB-Q 1 unit Q6H CAR Administration Protocol Lorazepam 2 mg 12/01/19 10:23 12/14/19 16:47 Ativan IV 2 mg Q1H PRN Administration CIWA-Ar 8-15 Lorazepam 4 mg 12/01/19 10:23 12/16/19 16:29 Ativan IV 4 mg Q1H PRN Administration CIWA-Ar 16-25 Lorazepam 4 mg 12/01/19 10:23 Ativan IV Q15MIN PRN CIWA-Ar >25 Metoprolol Tartrate 50 mg 12/07/19 14:00 12/17/19 15:15 Metoprolol PO 50 mg Q8HR CAR Administration Multi-Ingred Cream/Lotion/Oil/Oint 1 applic 11/24/19 02:23 Artificial Tears Ophth Oint OU Q4HR PRN Dry Eye(s) Ondansetron HCl 4 mg 11/24/19 05:31 12/14/19 20:00 Zofran IV 4 mg Q8H PRN Administration Nausea And Vomiting Polyethylene Glycol 17 gm 12/04/19 22:00 12/16/19 21:45 Miralax 3350 PO 17 gm QHS CAR Administration Quetiapine Fumarate 50 mg 12/07/19 13:00 12/17/19 10:16 Seroquel PO 50 mg DAILY CAR Administration Quetiapine Fumarate 200 mg 12/15/19 22:00 12/16/19 21:46 Seroquel PO 200 mg QHS CAR Administration Simple Syrup 15 ml 12/08/19 12:07 Simple Syrup FEEDTUBE PRN PRN Hypoglycemia Simple Syrup 30 ml 12/08/19 12:07 Simple Syrup FEEDTUBE PRN PRN Hypoglycemia Sodium Bicarbonate 325 mg 12/08/19 12:07 Sodium Bicarbonate FEEDTUBE PRN PRN For Clogged Feeding Tube Sodium Chloride 10 ml 11/24/19 10:00 12/17/19 10:16 Sodium Chloride Flush Syringe 10 Ml IV 10 ml BID CAR Administration Sodium Chloride 10 ml 11/24/19 05:31 Sodium Chloride Flush Syringe 10 Ml IV PRN PRN LINE FLUSH Nutrition/Malnutrition Assess - Dietary Evaluation Nutrition/Malnutrition Findings: Nutrition Notes Start: 11/24/19 12:22 Freq: Status: Active Protocol: Document 12/15/19 12:57 HEATHER (Rec: 12/15/19 13:01 HEATHER [id number]) Co-Sign 12/15/19 12:57 LM Nutrition Notes Initial or Follow up Reassessment Current Diagnosis Coronary Artery Disease,Heart Failure,Respiratory Failure, Stroke,Hyperlipidemia Current Diet TF Vital HP 65ml/hr Labs/Tests Na 139 Pertinent Medications Reviewed Height 6 ft 2 in Weight 123.3 kg [place] Body Weight (kg) 86.36 BMI 34.9 Weight change and time frame Wt change noted Weight Status Obese Subjective/Other Information F/u for TF tolerance. Per RN, pt tolerating TF well at 65ml/ hr. Noted emesis 100ml episode last night. Percent of energy/protein needs met: 98%/65% Burn Absent Trauma Absent GI Symptoms Vomiting Current % PO Negligible Minimum of two criteria No physical signs of malnutrition #1 Nutrition Diagnosis Inadequate oral intake Diagnosis Progress(for reassessment Continues documentation) Is patient on ventilator? Yes Is Patient Ambulatory and/or Out of Bed No REE-([facility]-confined to bed) 2521.872 Kcal/Kg value to use for calculation 13 Approximate Energy Requirements Using 1603 kcal/Kg Calculation Used for Recommendations Kcal/kg Additional Notes Protein needs 173g (up to 2g/ kg IBW) Fluid needs 1.5-1.9L Nutrition Intervention Change Diet Order: Continue TF Nutrition Support: Vital HP at 65ml/hr Flush 100ml q4h Hypernatermia 250 q4h Kcal 1,560 Protein (gm) 114 Fluid (mL) 1,304 % RDI: 100 Goal #1 TF meets at least 80% of energy and protein needs. Goal #2 TF tolerance Anticipated Discharge Needs: unable to determine at this time Follow-Up By: 12/18/19 Additional Comments F/u for stable TF
[2019-12-17] MEDS: POLYETHYLENE GLYCOL 3350 17 GM POWDER PO SCH (21:10)
[2019-12-17] MEDS: QUEtiapine 100 MG TAB PO SCH (21:39)
[2019-12-17] MEDS: LORazepam 2 MG/ML VIAL IV PRN (21:43)
[2019-12-18] MEDS: INSULIN LISPRO 100 UNIT/ML VIAL 3 mL SUB-Q SCH ×5 (01:37→20:10)
[2019-12-18] MEDS ORDERED: SODIUM CHLORIDE 0.9% 500 ML 500 ML IV ONE (01:56)
[2019-12-18 05:56] LABS: Hemoglobin 8.8 gm/dl (11.8-15.2)
[2019-12-18] MEDS: METOPROLOL TARTRATE 50 MG TAB PO SCH ×3 (06:15→21:17)
--- NOTE | 2019-12-18 06:32 | XRay Report ---
CHEST 1 VIEW 12/18/2019 5:14 AM INDICATION / CLINICAL INFORMATION: RLL atelectasis. COMPARISON: 12/13/2019 FINDINGS: SUPPORT DEVICES: Endotracheal and nasogastric tubes again project in expected position. HEART / MEDIASTINUM: No significant abnormality. LUNGS / PLEURA: Extensive bilateral parenchymal disease and small right pleural effusion, unchanged. No pneumothorax. ADDITIONAL FINDINGS: No significant additional findings. IMPRESSION: 1. Stable chest Signer Name: Ankit Saldaña MD Signed: 12/18/2019 6:28 AM Workstation Name: [id number]
--- NOTE | 2019-12-18 08:28 | Progress Note ---
Assessment and Plan Transient Afib after CPAP trial currently in sinus rhythm Ischemic Cardiomyopathy, resolving re-echo this presentation reports an LVEF 40-45%. echo 08/2018: decreased LVEF 20-25%. Hx of CAD [facility] 12/2018: mild in-stent restenosis. No significant residual disease. Multifocal pneumonia with intermittent fevers negative COVID-19 test x 2 Respiratory failure Acute PE/DVT on IV heparin Recommendations: Continue amiodarone and metoprolol for suppression of paroxysmal atrial fibrillation. Otherwise, conservative cardiac management. Subjective Date of service: 12/18/19 Principal diagnosis: Ac hypoxemic resp failure; Pneumonia; PUI COVID-19; CHF; COPD; HTN Interval history: Continues to be intubated maintaining sinus rhythm. In no acute distress Objective Vital Signs Temp Pulse Pulse Resp Resp BP Pulse Ox 12/18/19 07:50 81 116/84 94 12/18/19 06:00 79 21 135/85 98 12/18/19 05:31 80 13 113/71 95 12/18/19 05:00 78 12 113/71 91 12/18/19 04:31 77 13 106/72 99 12/18/19 04:03 74 106/72 98 12/18/19 04:00 78 97 H 15 14 106/72 96 12/18/19 03:31 82 14 117/85 97 12/18/19 03:23 98.9 F 12/18/19 03:00 86 14 117/85 94 12/18/19 02:31 73 13 132/87 98 12/18/19 02:00 81 14 132/82 97 12/18/19 01:31 84 15 132/82 97 12/18/19 01:00 86 18 107/76 94 12/18/19 00:30 78 14 107/76 96 12/18/19 00:02 84 16 107/76 95 12/18/19 00:00 84 22 14 107/76 96 12/17/19 23:53 88 102/69 96 12/17/19 23:30 82 15 121/80 96 12/17/19 23:00 79 13 102/69 12/17/19 22:43 98.4 F 12/17/19 22:30 77 14 128/92 93 12/17/19 22:00 80 15 121/80 94 12/17/19 21:30 95 H 13 128/92 96 12/17/19 21:00 93 H 17 128/92 97 12/17/19 20:30 94 H 12 118/91 98 12/17/19 20:09 99 H 118/91 99 12/17/19 20:00 91 H 10 L 14 118/91 99 12/17/19 19:40 99 F 12/17/19 19:39 97 H 16 98 12/17/19 19:30 86 14 130/97 98 12/17/19 19:00 108 H 17 114/90 12/17/19 18:30 85 14 114/90 100 12/17/19 18:00 99 H 13 114/90 99 12/17/19 17:30 89 10 L 120/93 98 12/17/19 17:02 93 H 120/93 96 12/17/19 17:00 98 H 13 120/93 96 12/17/19 16:30 86 14 128/87 99 12/17/19 16:00 99.0 F 97 H 97 H 13 128/87 96 12/17/19 15:30 86 11 L 132/81 95 12/17/19 15:15 96 H 132/81 12/17/19 15:00 101 H 18 132/81 96 12/17/19 14:30 94 H 16 125/77 96 12/17/19 14:00 87 14 125/77 12/17/19 13:30 105 H 20 117/69 97 12/17/19 13:00 122 H 24 117/69 100 12/17/19 12:30 90 17 117/69 97 12/17/19 12:00 99.0 F 81 97 H 10 L 117/69 94 12/17/19 11:30 83 11 L 116/67 97 12/17/19 11:24 89 112/73 97 12/17/19 11:00 86 13 112/73 12/17/19 10:30 86 14 116/67 95 12/17/19 10:00 88 15 116/67 94 12/17/19 09:34 85 129/87 96 12/17/19 09:30 81 10 L 108/73 95 12/17/19 09:00 92 H 16 108/73 95 12/17/19 08:30 87 12 108/73 96 - Physical Examination Narrative exam: General: No Apparent Distress moderately obese HEENT: NAD Neck: neck supple Cardiac: S1-S2 heard faint 2/6 systolic murmur Lungs: Normal basilar breath sounds heard Neuro: Grossly Intact Abdomen: Soft Extremities: No edema noted General: Other (intubated on the vent) HEENT: Positive: PERRL Neck: Positive: neck supple Neuro: Positive: Other (Intubated and sedated, on the vent) Abdomen: Positive: Soft Skin: Positive: Clear Extremities: Absent: edema - Labs and Meds CBC 12/18/19 Range/Units 05:17 Hgb 8.8 L (11.8-15.2) gm/dl Hct 28.0 L (35.5-45.6) % Plt Count 325 (140-440) K/mm3 - Allied health notes Allied health notes reviewed: nursing
[2019-12-18] MEDS: fentaNYL DRIP Premix 2,000 MCG/100 ML BAG IV SCH ×2 (08:51→19:33)
--- NOTE | 2019-12-18 09:00 | Progress Note ---
Assessment and Plan Cultures: Blood culture 12/02/2019 negative Blood culture 11/24/2019 negative Urine culture 11/24/2019 negative COVID-19 negative x2 12/04/2019 resp culture: PsA 12/06/2019 blood cultures: No growth today MRSA PCR negative A/P: 64-year-old male past medical history hypertension, COPD, CAD, CHF with reduced ejection fraction admitted with acute hypoxic respiratory failure likely secondary to pneumonia #Sepsis: With intermittent low-grade fever 100 resolved for 48 hours, likely due to PE/DVT. Procalcitonin improving, from 1.5-->0.6. #Acute hypoxemic respiratory failure: Likely secondary to pneumonia/PE, COVID-19 testing negative x 2. Remains intubated, failed CPAP trial #Bilateral pneumonia: COVID-19 negative twice. Culture growing Pseudomonas, pansensitive. Repeat chest x-ray with persistent right base opacity. CT shows PE. #CHF: per primary team #COPD: per pulmonary #Elevated LFTs: Improving? sepsis. US unremarkable GB #PE/right DVT: on heparin gtt #Urinary retention: Overnight patient did not void, bladder scan showed 700 cc, Hoffman placed 12/15/2019, now removed. #Transient A. fib/chemic cardiomyopathy: Per cardiology Recs: -Monitor off antibiotics -Primary team considering tracheostomy and BAL -PE/DVT management per primary team I will be covering the weekend, Dr. Saha rounding on Saturday Patsy Dominique MD [facility] ([facility]) Office [phone] Subjective Date of service: 12/18/19 Principal diagnosis: Ac hypoxemic resp failure; Pneumonia; PUI COVID-19; CHF; COPD; HTN Interval history: Remains intubated no fever for 48 hours, on heparin and fentanyl drip Objective - Exam Narrative Exam: Constitutional: Alert intubated FiO2 45/p6 Head, Ears, Nose: Normocephalic, atraumatic. External ears, nose normal Oral: ETT in place, OG tube in place Eyes: Conjunctivae/corneas clear. No icterus. No ptosis. Neck: Supple, no meningeal signs Cardiovascular: RRR Respiratory:CTA sofía GI: Soft, non-tender Musculoskeletal: bilateral hand edema Skin: No rash or abscess Hem/Lymphatic: No palpable cervical or supraclavicular nodes. No lymphangitis Psych: Alert Neurological: Alert Condom catheter in place - Constitutional Vitals: Vital Signs Temp Pulse Resp BP Pulse Ox 98.4 F 97 H 14 142/103 91 12/18/19 08:00 12/18/19 08:00 12/18/19 08:00 12/18/19 08:00 12/18/19 08:00 Temperature -Last 24 Hours Temperature 98.4 F Temperature 98.9 F Temperature 98.4 F Temperature 99 F Temperature 99.0 F Temperature 99.0 F Temperature 99.0 F - Labs CBC & Chem 7: 12/18/19 05:17 12/17/19 05:30 Labs: Abnormal lab results 12/17/19 12/17/19 12/17/19 Range/Units 11:50 17:50 23:46 Hgb (11.8-15.2) gm/dl Hct (35.5-45.6) % Heparin Anti-Xa Level (0.3-0.7) U.I./ml POC Glucose 140 H 158 H 150 H (70-105) 12/18/19 12/18/19 12/18/19 Range/Units 05:17 05:17 05:49 Hgb 8.8 L (11.8-15.2) gm/dl Hct 28.0 L (35.5-45.6) % Heparin Anti-Xa Level 0.16 L (0.3-0.7) U.I./ml POC Glucose 127 H (70-105)
[2019-12-18] MEDS: QUEtiapine 25 MG TAB PO SCH (09:47)
[2019-12-18] MEDS: AMIODARONE 200 MG TAB PO SCH ×2 (09:47→21:16)
[2019-12-18] MEDS: FAMOTIDINE 20 MG TAB PO SCH ×2 (09:48→21:16)
[2019-12-18] MEDS: DOCUSATE SODIUM 100 MG/10 ML ORAL LIQD FEEDTUBE SCH ×2 (09:48→21:16)
--- NOTE | 2019-12-18 11:10 | Progress Note ---
Assessment and Plan Assessment and plan: Acute LLL PE -Acute RLE DVT -Persistent fevers; secondary to sepsis and acute PE/DVT -Severe sepsis; secondary to bilateral pneumonia, persistent fevers -Acute hypoxemic respiratory failure, on vent unable to wean -Bilateral pneumonia, community acquired, -Aspiration Pneumonia -Sustained SVT, on amiodarone -Acute on chronic systolic congestive heart failure -History of cerebrovascular accident. -Tobacco use disorder -Alcohol abuse with DT -Acute chronic obstructive pulmonary disease exacerbation. -Hypertension and hypertensive urgency at presentation. -History of arthritis. -Paroxysmal atrial fibrillation -Leukocytosis with possible sepsis. -Lactic acidosis. -Bleeding from ET tube -Oropharyngeal dysphagia -S/P Knee surgery -History of peptic Ulcer Surgery -DVT prophylaxis COVID-19 test; 11/24/2019; negative 11/26/2019; negative Plan Continue ventilatory support Wean as tolerated as per critical care Completed abx, ID following Continue anti-failure medications, cardiology following cont Steroids, Continue diuresis as needed Aspiration precautions Continue amiodarone and metoprolol for suppression of paroxysmal atrial fibrillation. Anticoagulation currently is with intravenous heparin. DVT/GI prophy Heparin/Protonix Plan of care reviewed with the patient's nurse Closely monitor the patient and adjust management as needed The high probability of a clinically significant, sudden or life threatening deterioration of the [Respiratory, cardiovascular & neurological] system(s) required my full and direct attention, intervention and personal management. The aggregate critical care time was [33] minutes without overlap. Time includes spent on [x] Data Review and interpretation [x] Patient assessment and monitoring of vital signs [x] Documentation [x] Medication orders and management Brief History Patient is a 64-year-old male with known history of hypertension, COPD, history of coronary artery disease, CHF with ejection fraction of 20 to 25% in August 2018 presenting to the emergency room via EMS complaining of shortness of breath. Patient was found to be hypoxic and in respiratory distress. Patient was placed on CPAP in route to the hospital. Oxygen saturation was said to be 88%. Started on Solu-Medrol, Lasix and magnesium in ED, patient was also found to be lethargic with an oxygen saturation of about 91% on CPAP. He was subsequently intubated. Work-up in the emergency room including chest x-ray reveals bilateral pneumonia. He had an elevated white count of 14 and also had an elevated BNP. Patient to be admitted to the ICU and placed on empiric IV antibiotics for p neumonia. He will also be tested positive for COVID-19 and placed on isolation precautions. Rmains intubated on ventilatory support, sputum cultures positive for Pseudomonas, ID changed antibiotics to cefepime and Vanco. 11/25: Leukocytosis improving. Continue current management anticipate extubation possible today. 11/26. Still intubated. Failed SBT yesterday. Repeat COVID-19 test is negative. 11/27. CT head ordered for possible neuro status change is negative. More responsive as the day progressed as per RN. Chest xray today shows interval improvement. He is still on antibiotics - will complete regimen today. 11/28: Considering difficult extubation and severe cardiomyopathy, will obtain cardiology consult. Aspiration precautions, tube feeds held, continue antibiotics. 11/29: Still with intermittent fever but improving imaging, continue diuresis. 11/30; Extremely agitated when placed on PSV- SVT, hypertension. Patiet acknowledged that he drinks. IV Ativan given, CIWA protocol initiated. 12 lead ordered showed SVT, one dose of amiodarone ordered. continue to follow up cardiology recommendation 12/01: Patient remains on mechanical ventilation, getting SBT trial. Remains in SVT, started on amiodarone drip by cardiology. 12/02; patient is on mechanical ventilation and on spontaneous breathing trial. Cardiology started the patient on PO amiodarone. Patient is on cefepime. 12/03: patient is on mechanical ventilation. Cardiology started the patient on PO amiodarone for SVT. Patient is on cefepime, no fever overnight. 12/04: Patient is sedated and on mechanical ventilation. Patient had fever yesterday afternoon 102.3, ID changed his cefepime to meropenem. Heart rate is controlled, cardiology is following. Patient has paroxysmal atrial fibrillation and on amiodarone and metoprolol, subcu heparin for anticoagulation and will need oral anticoagulation once stable. 12/05: Sputum cultures positive for Pseudomonas, ID following 12/06; patient is febrile T-max 24 hours 102 F ,ID change antibiotics to cefepime and Vancomycin 12/07: resumed care. Na 149 today, start on 1/2 NS. cont current care 12/08: remains in a stable sinus rhythm and stable blood pressure, continue supportive care. wean off vent as tolerated. persistent fever - ordered CTA chest 12/09: noted bloody discharges from ET tube last night. CTA and LE venous doppler positive for acute PE and DVT. resume heparin drip, consult vascular for possible EKOS/ IVC filter. monitor h/h. cont SBT trial, wean off vent as figueroa erated. called but no answer 12/10: cont heparin drip for acute PE and DVT, follow vascular recommendation. monitor h/h, wean off vent as tolerated 12/11: o/n had bleeding from ET tube, cont to monitor h/h. vascular recommending medical Mx. called ; Nicolle Araiza [phone]. 12/12: H&H remained stable, patient on heparin drip. Discussed with yesterday. Discussed with critical care attending. Patient not tolerating SBT trial. Continue to wean off from vent as tolerated, follow clinically. Tolerating tube feeding 12/13: Continue heparin drip, wean off from vent as tolerated. Discussed with pulmonary attending if no improvement by the end of 3 weeks of intubation patient may need trach and PEG. Continue to provide supportive care, follow CBC and BMP. 12/14: Stop cefepime today, wean off from vent as tolerated. cont Heparin infusion, while monitoring for bleeding 12/15: Patient is not tolerating SBT trial, becoming apnic on CPAP. May need to place on trach and PEG. Continue heparin drip, monitor off antibiotics 12/16. Still maintained on vent. May need PEG and trach as her has been failed SBTs 12/17. Had low UO overnight. Started on tamsulosin. May need PEG and trach - defer to pulm. History Interval history: No change in medical condition. Still remains intubated. COVID-19 test negative. May need trach and PEG Hospitalist Physical - Constitutional Vitals: Temp Pulse Resp BP Pulse Ox 98.4 F 97 H 14 142/103 91 12/18/19 08:00 12/18/19 08:00 12/18/19 08:00 12/18/19 08:00 12/18/19 08:00 General appearance: Present: well-nourished, other - EENT Eyes: Present: PERRL - Neck Neck: Present: supple - Respiratory Respiratory: bilateral: diminished - Cardiovascular Heart Sounds: Present: S1 & S2 - Abdominal General gastrointestinal: soft, non-tender, non-distended, normal bowel sounds - Neurologic Neurologic: other (Sedated and intubated) HEART Score - HEART Score Troponin: Troponin T < 0.010 ng/mL (0.00-0.029) 11/24/19 02:53 Results - Labs CBC & Chem 7: 12/18/19 05:17 12/17/19 05:30 Labs: Laboratory Last Values WBC 13.9 K/mm3 (4.5-11.0) H 12/17/19 05:30 RBC 3.27 M/mm3 (3.65-5.03) L 12/17/19 05:30 Hgb 8.8 gm/dl (11.8-15.2) L 12/18/19 05:17 Hct 28.0 % (35.5-45.6) L 12/18/19 05:17 MCV 89 fl (84-94) 12/17/19 05:30 MCH 29 pg (28-32) 12/17/19 05:30 MCHC 32 % (32-34) 12/17/19 05:30 RDW 16.0 % (13.2-15.2) H 12/17/19 05:30 Plt Count 325 K/mm3 (140-440) 12/18/19 05:17 Lymph % (Auto) 15.4 % (13.4-35.0) 12/17/19 05:30 Wilson % (Auto) 8.8 % (0.0-7.3) H 12/17/19 05:30 Eos % (Auto) 3.8 % (0.0-4.3) 12/17/19 05:30 Baso % (Auto) 1.5 % (0.0-1.8) 12/17/19 05:30 Add Manual Diff Complete 12/13/19 05:32 Lymph # (Auto) 2.1 K/mm3 (1.2-5.4) 12/17/19 05:30 Wilson # (Auto) 1.2 K/mm3 (0.0-0.8) H 12/17/19 05:30 Total Counted 100 12/13/19 05:32 Eos # (Auto) 0.5 K/mm3 (0.0-0.4) H 12/17/19 05:30 Seg Neuts % (Manual) 74.0 % (40.0-70.0) H 12/13/19 05:32 Baso # (Auto) 0.2 K/mm3 (0.0-0.1) H 12/17/19 05:30 Band Neutrophils % 1.0 % 12/13/19 05:32 Lymphocytes % (Manual) 8.0 % (13.4-35.0) L 12/13/19 05:32 Reactive Lymphs % (Man) 2.0 % 12/13/19 05:32 Monocytes % (Manual) 9.0 % (0.0-7.3) H 12/13/19 05:32 Eosinophils % (Manual) 5.0 % (0.0-4.3) H 12/13/19 05:32 Basophils % (Manual) 1.0 % (0.0-1.8) 12/13/19 05:32 Metamyelocytes % 0 % 12/13/19 05:32 Myelocytes % 0 % 12/13/19 05:32 Promyelocytes % 0 % 12/13/19 05:32 Blast Cells % 0 % 12/13/19 05:32 Nucleated RBC % Not Reportable 12/13/19 05:32 Seg Neutrophils % 70.5 % (40.0-70.0) H 12/17/19 05:30 Seg Neutrophils # Man 9.7 K/mm3 (1.8-7.7) H 12/13/19 05:32 Band Neutrophils # 0.1 K/mm3 12/13/19 05:32 Lymphocytes # (Manual) 1.0 K/mm3 (1.2-5.4) L 12/13/19 05:32 Abs React Lymphs (Man) 0.3 K/mm3 12/13/19 05:32 Monocytes # (Manual) 1.2 K/mm3 (0.0-0.8) H 12/13/19 05:32 Eosinophils # (Manual) 0.7 K/mm3 (0.0-0.4) H 12/13/19 05:32 Basophils # (Manual) 0.1 K/mm3 (0.0-0.1) 12/13/19 05:32 Metamyelocytes # 0.0 K/mm3 12/13/19 05:32 Myelocytes # 0.0 K/mm3 12/13/19 05:32 Promyelocytes # 0.0 K/mm3 12/13/19 05:32 Blast Cells # 0.0 K/mm3 12/13/19 05:32 Seg Neutrophils # 9.8 K/mm3 (1.8-7.7) H 12/17/19 05:30 WBC Morphology Not Reportable 12/13/19 05:32 Hypersegmented Neuts Not Reportable 12/13/19 05:32 Hyposegmented Neuts Not Reportable 12/13/19 05:32 Hypogranular Neuts Not Reportable 12/13/19 05:32 Smudge Cells Not Reportable 12/13/19 05:32 Toxic Granulation Not Reportable 12/13/19 05:32 Toxic Vacuolation Not Reportable 12/13/19 05:32 Dohle Bodies Not Reportable 12/13/19 05:32 Pelger-Huet Anomaly Not Reportable 12/13/19 05:32 Hector Rods Not Reportable 12/13/19 05:32 Platelet Estimate Consistent w auto 12/13/19 05:32 Clumped Platelets Not Reportable 12/13/19 05:32 Plt Clumps, EDTA Not Reportable 12/13/19 05:32 Large Platelets Not Reportable 12/13/19 05:32 Giant Platelets Not Reportable 12/13/19 05:32 Platelet Satelliting Not Reportable 12/13/19 05:32 Plt Morphology Comment Not Reportable 12/13/19 05:32 RBC Morphology Not Reportable 12/13/19 05:32 Dimorphic RBCs Not Reportable 12/13/19 05:32 Polychromasia Not Reportable 12/13/19 05:32 Hypochromasia Not Reportable 12/13/19 05:32 Poikilocytosis Not Reportable 12/13/19 05:32 Anisocytosis 1+ 12/13/19 05:32 Microcytosis Not Reportable 12/13/19 05:32 Macrocytosis Not Reportable 12/13/19 05:32 Spherocytes Not Reportable 12/13/19 05:32 Pappenheimer Bodies Not Reportable 12/13/19 05:32 Sickle Cells Not Reportable 12/13/19 05:32 Target Cells Not Reportable 12/13/19 05:32 Tear Drop Cells Not Reportable 12/13/19 05:32 Ovalocytes Not Reportable 12/13/19 05:32 Helmet Cells Not Reportable 12/13/19 05:32 Gottlieb-Groveton Bodies Not Reportable 12/13/19 05:32 [place] Rings Not Reportable 12/13/19 05:32 Oc Cells Not Reportable 12/13/19 05:32 Bite Cells Not Reportable 12/13/19 05:32 Crenated Cell Not Reportable 12/13/19 05:32 Elliptocytes Not Reportable 12/13/19 05:32 Acanthocytes (Spur) Not Reportable 12/13/19 05:32 Rouleaux Not Reportable 12/13/19 05:32 Hemoglobin C Crystals Not Reportable 12/13/19 05:32 Schistocytes Not Reportable 12/13/19 05:32 Malaria parasites Not Reportable 12/13/19 05:32 Clifford Bodies Not Reportable 12/13/19 05:32 Hem Pathologist Commnt No 12/13/19 05:32 PT 14.0 Sec. (12.2-14.9) 12/10/19 21:20 INR 1.06 (0.87-1.13) 12/10/19 21:20 APTT 28.6 Sec. (24.2-36.6) 12/07/19 14:51 Heparin Anti-Xa Level 0.16 U.I./ml (0.3-0.7) L 12/18/19 05:17 ABG pH 7.439 (7.320-7.450) 12/02/19 12:58 POC ABG pCO2 45.1 mmHg (32.0-48.0) 12/02/19 12:58 ABG pCO2 43.4 mm Hg 11/30/19 04:56 POC ABG pO2 78.1 mmHg (83-108) L 12/02/19 12:58 ABG pO2 56.3 mm Hg (80.0-90.0) L 11/30/19 04:56 POC ABG HCO3 29.9 12/02/19 12:58 ABG HCO3 29.3 mmol/L (20.0-26.0) H 11/30/19 04:56 ABG O2 Saturation 91.5 % (95.0-99.0) L 11/30/19 04:56 ABG O2 Content 15.1 (0.0-44) 11/30/19 04:56 POC ABG Base Excess 5.0 12/02/19 12:58 ABG Base Excess 4.7 mmol/L (-2.0-3.0) H 11/30/19 04:56 ABG Hemoglobin 13.6 (12.0-17.5) 12/02/19 12:58 ABG Oxyhemoglobin 94.7 (94-98) 12/02/19 12:58 ABG Carboxyhemoglobin 2.2 % (0.0-5.0) 11/30/19 04:56 ABG Methemoglobin 0 (0.0-1.5) 12/02/19 12:58 Oxyhemoglobin 89.2 % (95.0-99.0) L 11/30/19 04:56 Carboxyhemoglobin 1.3 (0.5-1.5) 12/02/19 12:58 FiO2 50 12/02/19 12:58 Sodium 138 mmol/L (137-145) 12/17/19 05:30 Potassium 4.6 mmol/L (3.6-5.0) 12/17/19 05:30 Chloride 97.4 mmol/L (98-107) L 12/17/19 05:30 Carbon Dioxide 32 mmol/L (22-30) H 12/17/19 05:30 Anion Gap 13 mmol/L 12/17/19 05:30 BUN 20 mg/dL (9-20) 12/17/19 05:30 Creatinine 0.5 mg/dL (0.8-1.3) L 12/17/19 05:30 Estimated GFR > 60 ml/min 12/17/19 05:30 BUN/Creatinine Ratio 40 % 12/17/19 05:30 Glucose 135 mg/dL (75-100) H 12/17/19 05:30 POC Glucose 127 (70-105) H 12/18/19 05:49 Lactic Acid 2.50 mmol/L (0.7-2.0) H* 11/24/19 10:37 Phosphorus 2.60 mg/dL (2.5-4.5) 12/06/19 05:24 Magnesium 2.60 mg/dL (1.7-2.3) H 12/07/19 12:41 Calcium 9.5 mg/dL (8.4-10.2) 12/17/19 05:30 Ferritin 84.4 ng/mL (30.0-300.0) 11/24/19 04:53 Total Bilirubin 0.40 mg/dL (0.1-1.2) 12/14/19 09:37 Direct Bilirubin < 0.2 mg/dL (0-0.2) 12/08/19 03:55 Indirect Bilirubin 0.2 mg/dL 12/08/19 03:55 AST 71 units/L (5-40) H 12/14/19 09:37 ALT 118 units/L (7-56) H 12/14/19 09:37 Alkaline Phosphatase 79 units/L (35-129) 12/14/19 09:37 Lactate Dehydrogenase 194 units/L (91-180) H 12/01/19 12:16 Total Creatine Kinase 141 units/L (55-170) 11/24/19 02:53 CK-MB (CK-2) 4.3 ng/mL (0.0-4.0) H 11/24/19 02:53 CK-MB (CK-2) Rel Index 3.0 (0-4) 11/24/19 02:53 Troponin T < 0.010 ng/mL (0.00-0.029) 11/24/19 02:53 C-Reactive Protein 8.50 mg/dL (0.00-1.30) H 12/01/19 12:16 NT-Pro-B Natriuret Pep 286.1 pg/mL (0-900) 11/29/19 15:37 Total Protein 6.2 g/dL (6.3-8.2) L 12/14/19 09:37 Albumin 2.3 g/dL (3.9-5) L 12/14/19 09:37 Albumin/Globulin Ratio 0.6 % 12/14/19 09:37 Procalcitonin 0.67 ng/mL (<0.15) 12/07/19 12:41 Urine Color Cecy (Yellow) 12/03/19 06:03 Urine Turbidity Clear (Clear) 12/03/19 06:03 Urine pH 5.0 (5.0-7.0) 12/03/19 06:03 Ur Specific [place] 1.030 (1.003-1.030) 12/03/19 06:03 Urine Protein <15 mg/dl mg/dL (Negative) 12/03/19 06:03 Urine Glucose (UA) Neg mg/dL (Negative) 12/03/19 06:03 Urine Ketones Neg mg/dL (Negative) 12/03/19 06:03 Urine Blood Neg (Negative) 12/03/19 06:03 Urine Nitrite Neg (Negative) 12/03/19 06:03 Urine Bilirubin Neg (Negative) 12/03/19 06:03 Urine Urobilinogen 4.0 mg/dL (<2.0) 12/03/19 06:03 Ur Leukocyte Esterase Neg (Negative) 12/03/19 06:03 Urine WBC (Auto) 8.0 /HPF (0.0-6.0) H 12/03/19 06:03 Urine RBC (Auto) 2.0 /HPF (0.0-6.0) 12/03/19 06:03 Urine Bacteria (Auto) 1+ /HPF (Negative) 12/03/19 06:03 Urine Mucus 1+ /HPF 12/03/19 06:03 Vancomycin Trough 14.2 ug/mL (5.0-20.0) 12/13/19 15:01 Coronavirus (PCR) Negative (Negative) 11/26/19 08:26 - Diagnostic Impressions Diagnostic Impressions: Echocardiogram 11/29/19 07:37 Transthoracic Echocardiogram Indication: CHF BP: 116/72 HR: 33 Conclusions *The study is technically limited due to poor acoustic windows. *Global left ventricular systolic function is normal. *The estimated ejection fraction is 50-55%. *Mild concentric left ventricular hypertrophy is observed. *There is trace of mitral regurgitation. *There is mild tricuspid regurgitation. Findings Procedure Info: The study quality is poor. The study is technically limited due to poor acoustic windows. The study is technically limited due to patient body habitus. Left Ventricle: The left ventricular chamber size is normal. Mild concentric left ventricular hypertrophy is observed. Global left ventricular systolic function is normal. The estimated ejection fraction is 50-55%. Left Atrium: The left atrial chamber size is normal. Right Ventricle: The right ventricular cavity size is normal. Right Atrium: The right atrial cavity size is normal. Aortic Valve: The aortic valve leaflets are moderately thickened. There is trace of aortic regurgitation. There is no evidence of aortic stenosis. Mitral Valve: The mitral valve leaflets are mildly thickened. There is trace of mitral regurgitation. There is no evidence of mitral stenosis. Tricuspid Valve: There is mild tricuspid regurgitation. No pulmonary hypertension is noted. Pulmonic Valve: There is trace pulmonic regurgitation. Pericardium: There is no pericardial effusion. Aorta: There is no dilatation of the aortic root. Venous: The inferior vena cava appears normal in size. Contrast: Definity was used to optimize study. Intravenous contrast was used to enhance endocardial border definition. Measurements Chambers 2D Name Value Normal Range Ao root diameter (2D) 3.4 cm (2 - 3.7) Aortic Valve Name Value Normal Range AV Vmax 0.98 m/sec - AV VTI 16.76 cm - AV peak gradient 3.83 mmHg - AV mean gradient 2.57 mmHg - LVOT diameter 3.11 cm - LVOT Vmax 0.68 m/sec - LVOT VTI 11.52 cm - LVOT peak gradient 1.84 mmHg - LVOT mean gradient 1.27 mmHg - SV LVOT 87.31 ml - MALOU (continuity Vmax) 5.24 cm2 - MALOU (continuity VTI) 5.21 cm2 - Tricuspid Valve Name Value Normal Range IVC diameter 2.24 cm (1.2 - 2.3) Hoffman/IV: Voiding Method Indwelling Catheter IV Catheter Type [Right Upper INT / Saline Lock arm] IV Catheter Type [Left Upper Mid-line arm] IV Catheter Type [Left Forearm Peripheral IV ] IV Catheter Type [Left Hand] INT / Saline Lock IV Catheter Type [Left Wrist] INT / Saline Lock IV Catheter Type [Right INT / Saline Lock Antecubital] Active Medications - Current Medications Current Medications: Generic Name Dose Route Start Last Admin Trade Name Freq PRN Reason Stop Dose Admin Acetaminophen 650 mg 11/25/19 17:27 12/16/19 00:29 Tylenol FEEDTUBE 650 mg Q6H PRN Administration Pain, Mild (1-3) Amiodarone HCl 200 mg 12/04/19 14:00 12/18/19 09:47 Cordarone PO 200 mg BID CAR Administration Lipase/Protease/Amylase 1 each 12/08/19 12:07 Pancrepetr Betancourt 10,500 Unit FEEDTUBE PRN PRN For Clogged Feeding Tube Docusate Sodium 100 mg 12/02/19 22:00 12/18/19 09:48 Colace FEEDTUBE 100 mg BID CAR Administration Famotidine 20 mg 11/25/19 10:00 12/18/19 09:48 Pepcid PO 20 mg BID CAR Administration Fentanyl 50 mcg 11/24/19 09:55 Sublimaze IV Q10MIN PRN ANALGESIA Haloperidol Lactate 5 mg 12/01/19 10:23 Haldol IV Q1H PRN Unrespon. to mult. doses BZD's Hydrophilic Ointment 1 applic 11/24/19 02:23 Vaseline Lip Therapy TP Q2HR PRN Dry Lips Fentanyl Citrate 2,000 mcg in 100 mls @ 5.67 mls/hr 11/24/19 10:00 12/18/19 08:51 Fentanyl Drip Premix IV 2 mcg/kg/hr TITR CAR 11.34 mls/hr Administration Protocol 1 MCG/KG/HR Propofol 1,000 mg in 100 mls @ 3.402 mls/hr 11/28/19 17:25 Diprivan 10 Mg/Ml IV TITR CAR Protocol 5 MCG/KG/MIN Heparin Sodium/Sodium Chloride 25,000 unit in 500 mls @ 30 mls/hr 12/10/19 19:00 12/17/19 22:19 Heparin/ 0.45% Nacl-25,000 Unit/500 Ml IV 1,500 units/hr TITR CAR 30 mls/hr Administration Protocol 1,500 UNITS/HR Insulin Human Lispro 0 unit 12/05/19 19:00 12/18/19 01:37 Humalog SUB-Q 1 unit Q6H CAR Administration Protocol Lorazepam 2 mg 12/01/19 10:23 12/17/19 21:43 Ativan IV 2 mg Q1H PRN Administration CIWA-Ar 8-15 Lorazepam 4 mg 12/01/19 10:23 12/16/19 16:29 Ativan IV 4 mg Q1H PRN Administration CIWA-Ar 16-25 Lorazepam 4 mg 12/01/19 10:23 Ativan IV Q15MIN PRN CIWA-Ar >25 Metoprolol Tartrate 50 mg 12/07/19 14:00 12/18/19 06:15 Metoprolol PO 50 mg Q8HR CAR Administration Multi-Ingred Cream/Lotion/Oil/Oint 1 applic 11/24/19 02:23 Artificial Tears Ophth Oint OU Q4HR PRN Dry Eye(s) Ondansetron HCl 4 mg 11/24/19 05:31 12/14/19 20:00 Zofran IV 4 mg Q8H PRN Administration Nausea And Vomiting Polyethylene Glycol 17 gm 12/04/19 22:00 12/17/19 21:10 Miralax 3350 PO 17 gm QHS CAR Administration Quetiapine Fumarate 50 mg 12/07/19 13:00 12/18/19 09:47 Seroquel PO 50 mg DAILY CAR Administration Quetiapine Fumarate 200 mg 12/15/19 22:00 12/17/19 21:39 Seroquel PO 200 mg QHS CAR Administration Simple Syrup 15 ml 12/08/19 12:07 Simple Syrup FEEDTUBE PRN PRN Hypoglycemia Simple Syrup 30 ml 12/08/19 12:07 Simple Syrup FEEDTUBE PRN PRN Hypoglycemia Sodium Bicarbonate 325 mg 12/08/19 12:07 Sodium Bicarbonate FEEDTUBE PRN PRN For Clogged Feeding Tube Sodium Chloride 10 ml 11/24/19 10:00 12/17/19 23:55 Sodium Chloride Flush Syringe 10 Ml IV 10 ml BID CAR Administration Sodium Chloride 10 ml 11/24/19 05:31 Sodium Chloride Flush Syringe 10 Ml IV PRN PRN LINE FLUSH Tamsulosin HCl 0.4 mg 12/18/19 13:00 Flomax PO QDAY CAR Nutrition/Malnutrition Assess - Dietary Evaluation Nutrition/Malnutrition Findings: Nutrition Notes Start: 11/24/19 12:22 Freq: Status: Active Protocol: Document 12/15/19 12:57 HEATHER (Rec: 12/15/19 13:01 HEATHER [id number]) Co-Sign 12/15/19 12:57 LM Nutrition Notes Initial or Follow up Reassessment Current Diagnosis Coronary Artery Disease,Heart Failure,Respiratory Failure, Stroke,Hyperlipidemia Current Diet TF Vital HP 65ml/hr Labs/Tests Na 139 Pertinent Medications Reviewed Height 6 ft 2 in Weight 123.3 kg [place] Body Weight (kg) 86.36 BMI 34.9 Weight change and time frame Wt change noted Weight Status Obese Subjective/Other Information F/u for TF tolerance. Per RN, pt tolerating TF well at 65ml/ hr. Noted emesis 100ml episode last night. Percent of energy/protein needs met: 98%/65% Burn Absent Trauma Absent GI Symptoms Vomiting Current % PO Negligible Minimum of two criteria No physical signs of malnutrition #1 Nutrition Diagnosis Inadequate oral intake Diagnosis Progress(for reassessment Continues documentation) Is patient on ventilator? Yes Is Patient Ambulatory and/or Out of Bed No REE-([facility]-confined to bed) 2521.872 Kcal/Kg value to use for calculation 13 Approximate Energy Requirements Using 1603 kcal/Kg Calculation Used for Recommendations Kcal/kg Additional Notes Protein needs 173g (up to 2g/ kg IBW) Fluid needs 1.5-1.9L Nutrition Intervention Change Diet Order: Continue TF Nutrition Support: Vital HP at 65ml/hr Flush 100ml q4h Hypernatermia 250 q4h Kcal 1,560 Protein (gm) 114 Fluid (mL) 1,304 % RDI: 100 Goal #1 TF meets at least 80% of energy and protein needs. Goal #2 TF tolerance Anticipated Discharge Needs: unable to determine at this time Follow-Up By: 12/18/19 Additional Comments F/u for stable TF
--- NOTE | 2019-12-18 11:31 | Consultation ---
History of Present Illness Consult date: 12/18/19 Reason for consult: other (trach) Chief complaint: VDRF - History of present illness History of present illness: 64 yo M with hx of HTN, COPD, CHF, CAD who presented to ER on 11/23 with increasing SOB and was found to be hypoxic. Pt is currently on vent and all history is obtained from chart. Per notes, patient was placed on CPAP and given lasix, solumedrol, and magnesium in the field without significant improvement. He was intubated in the ER. He has remained on the vent since this time and is unable to be weaned. He is being treated for b/l PNA. Surgery is consulted for trach/peg placement. COVID testing was negative. Patient recently diagnosed with small PE and LE DVT and is on hepgtt Past History Past Medical History: arthritis, CAD, COPD, heart failure, hypertension, hyperlipidemia, stroke, other (Sepsis in 2015) Past Surgical History: PTCA, Other (Peptic Ulcer Surgery, 2 Knee surgeries, ) Social history: smoking (Occasional Smoker) Family history: no significant family history Medications and Allergies Allergies Allergy/AdvReac Type Severity Reaction Status Date / Time No Known Allergies Allergy Verified 06/23/19 08:58 Home Medications Medication Instructions Recorded Confirmed Last Taken Type lisinopriL [Zestril TAB] 10 mg PO QDAY #30 tablet 12/29/18 11/24/19 Unknown Rx Albuterol Mdi (or & Nicu Only) 2 puff IH Q4HR PRN #1 inhalation 06/25/19 11/24/19 Unknown Rx [ProAir HFA Inhaler] Aspirin [Aspirin BABY CHEW TAB] 81 mg PO QDAY #100 tab.chew 09/20/19 11/24/19 Un known Rx AtorvaSTATin [Lipitor] 40 mg PO QHS #30 tablet 09/20/19 11/24/19 Unknown Rx Clopidogrel [Plavix] 75 mg PO QDAY #30 tablet 09/20/19 11/24/19 Unknown Rx Furosemide [Lasix TAB] 20 mg PO QDAY #30 tablet 09/20/19 11/24/19 Unknown Rx Pantoprazole [Protonix] 40 mg PO QDAY #10 tablet 09/24/19 11/24/19 Unknown Rx Spironolactone [Aldactone] 25 mg PO QDAY #30 tablet 09/24/19 11/24/19 Unknown Rx carBAMazepine [TEGretol] 100 mg PO BID #60 tablet 09/24/19 11/25/19 Unknown Rx carvediloL [Coreg] 3.125 mg PO BID #60 tablet 09/24/19 11/24/19 Unknown Rx dexAMETHasone [Dexamethasone] 6 mg PO DAILY #10 tablet 09/24/19 11/25/19 Unknown Rx guaiFENesin ER [Mucinex ER] 600 mg PO Q12H #14 tablet.er 09/24/19 11/25/19 Unknown Rx Active Meds: Active Medications Acetaminophen (Tylenol) 650 mg FEEDTUBE Q6H PRN PRN Reason: Pain, Mild (1-3) Last Admin: 12/16/19 00:29 Dose: 650 mg Documented by: Amiodarone HCl (Cordarone) 200 mg PO BID [facility] Last Admin: 12/18/19 09:47 Dose: 200 mg Documented by: Lipase/Protease/Amylase (Pancreaze Dr 10,500 Unit) 1 each FEEDTUBE PRN PRN PRN Reason: For Clogged Feeding Tube Docusate Sodium (Colace) 100 mg FEEDTUBE BID [facility] Last Admin: 12/18/19 09:48 Dose: 100 mg Documented by: Famotidine (Pepcid) 20 mg PO BID [facility] Last Admin: 12/18/19 09:48 Dose: 20 mg Documented by: Fentanyl (Sublimaze) 50 mcg IV Q10MIN PRN PRN Reason: ANALGESIA Haloperidol Lactate (Haldol) 5 mg IV Q1H PRN PRN Reason: Unrespon. to mult. doses BZD's Hydrophilic Ointment (Vaseline Lip Therapy) 1 applic TP Q2HR PRN PRN Reason: Dry Lips Fentanyl Citrate (Fentanyl Drip Premix) 2,000 mcg in 100 mls @ 5.67 mls/hr IV TITR CAR; Protocol Last Admin: 12/18/19 08:51 Dose: 2 mcg/kg/hr, 11.34 mls/hr Documented by: Propofol (Diprivan 10 Mg/Ml) 1,000 mg in 100 mls @ 3.402 mls/hr IV TITR CAR; Protocol Heparin Sodium/Sodium Chloride (Heparin/ 0.45% Nacl-25,000 Unit/500 Ml) 25,000 unit in 500 mls @ 30 mls/hr IV TITR CAR; Protocol Last Admin: 12/17/19 22:19 Dose: 1,500 units/hr, 30 mls/hr Documented by: Insulin Human Lispro (Humalog) 0 unit SUB-Q Q6H [facility]; Protocol Last Admin: 12/18/19 01:37 Dose: 1 unit Documented by: Lorazepam (Ativan) 2 mg IV Q1H PRN PRN Reason: CIWA-Ar 8-15 Last Admin: 12/17/19 21:43 Dose: 2 mg Documented by: Lorazepam (Ativan) 4 mg IV Q1H PRN PRN Reason: CIWA-Ar 16-25 Last Admin: 12/16/19 16:29 Dose: 4 mg Documented by: Lorazepam (Ativan) 4 mg IV Q15MIN PRN PRN Reason: CIWA-Ar >25 Last Admin: 12/18/19 11:14 Dose: 4 mg Documented by: Metoprolol Tartrate (Metoprolol) 50 mg PO Q8HR [facility] Last Admin: 12/18/19 06:15 Dose: 50 mg Documented by: Multi-Ingred Cream/Lotion/Oil/Oint (Artificial Tears Ophth Oint) 1 applic OU Q4HR PRN PRN Reason: Dry Eye(s) Ondansetron HCl (Zofran) 4 mg IV Q8H PRN PRN Reason: Nausea And Vomiting Last Admin: 12/14/19 20:00 Dose: 4 mg Documented by: Polyethylene Glycol (Miralax [id number]) 17 gm PO QHS [facility] Last Admin: 12/17/19 21:10 Dose: 17 gm Documented by: Quetiapine Fumarate (Seroquel) 50 mg PO DAILY [facility] Last Admin: 12/18/19 09:47 Dose: 50 mg Documented by: Quetiapine Fumarate (Seroquel) 200 mg PO QHS [facility] Last Admin: 12/17/19 21:39 Dose: 200 mg Documented by: Simple Syrup (Simple Syrup) 15 ml FEEDTUBE PRN PRN PRN Reason: Hypoglycemia Simple Syrup (Simple Syrup) 30 ml FEEDTUBE PRN PRN PRN Reason: Hypoglycemia Sodium Bicarbonate (Sodium Bicarbonate) 325 mg FEEDTUBE PRN PRN PRN Reason: For Clogged Feeding Tube Sodium Chloride (Sodium Chloride Flush Syringe 10 Ml) 10 ml IV BID [facility] Last Admin: 12/17/19 23:55 Dose: 10 ml Documented by: Sodium Chloride (Sodium Chloride Flush Syringe 10 Ml) 10 ml IV PRN PRN PRN Reason: LINE FLUSH Tamsulosin HCl (Flomax) 0.4 mg PO QDAY [facility] Review of Systems ROS unobtainable: due to endotracheal tube, due to mental status Exam Vital Signs Temp Pulse Resp BP Pulse Ox 98.2 F 135 H 32 H 210/124 91 11/24/19 02:25 11/24/19 02:25 11/24/19 02:25 11/24/19 02:25 11/24/19 02:25 Narrative exam: Gen: Intubated, sedated on vent. NAD ENT: ETT and OGT in place. Trachea midline. NO LAD CV: s1, S2+ Resp: even and unlabored Abd: soft, NT, ND. Midline surgical scar : sánchez with clear urine Results - Labs 12/18/19 05:17 12/17/19 05:30 Abnormal lab results 12/17/19 12/17/19 12/17/19 Range/Units 11:50 17:50 23:46 Hgb (11.8-15.2) gm/dl Hct (35.5-45.6) % Heparin Anti-Xa Level (0.3-0.7) U.I./ml POC Glucose 140 H 158 H 150 H (70-105) 12/18/19 12/18/19 12/18/19 Range/Units 05:17 05:17 05:49 Hgb 8.8 L (11.8-15.2) gm/dl Hct 28.0 L (35.5-45.6) % Heparin Anti-Xa Level 0.16 L (0.3-0.7) U.I./ml POC Glucose 127 H (70-105) - Imaging Chest x-ray: report reviewed, image reviewed CT scan - chest: report reviewed, image reviewed Assessment and Plan 64 yo M with 1. VDRF 2. B/L PNA 3. acute PE/DVT 4. R pleural effusion Plan: Discussed case with Dr. Jarquin. Patient with endobronchial plugging and moderate sized right pleural effusion. These may be affecting pulmonary function and precluding vent weaning. 1. Consult to radiology for thoracentesis 2. Recommend bronchoscopy 3. If patient still unable to be extubated after pulmonary optimization, will plan for trach and peg. 4. If trach/peg needed, hepgtt will need to be held 6 hours prior to and after procedure. Oked by Dr. Jarquin 5. Will follow up on patient's progress Thank you, please call with questions.
--- NOTE | 2019-12-18 12:17 | Progress Note ---
Assessment and Plan Acute hypoxemic respiratory failure Bilateral pneumonia, community acquired. Acute LLL branch P.E. Acute DVT Person under investigation for COVID-19 infection. Acute congestive heart failure exacerbation. History of cerebrovascular accident. Acute chronic obstructive pulmonary disease exacerbation. Hypertension and hypertensive urgency at presentation. History of arthritis. Leukocytosis. Lactic acidosis. Oropharyngeal dysphagia - continue therapeutic anticoagulation with IV heprin (hold for procedures) - get US thoracentesis for R. Pleural Effusion - bronchoscopy if no re-expansion post thoracentesis - Surgery evaluation ongoing for tracheostomy - follow BAL studies - continue daily SAT's and SBT assessment as tolerated - continue care as below otherwise; - continue low dose seroquel - COVID isolation per facility protocol - free water for hypernatremia - continue diuresis while following electrolytes / I's & O's - continue to wean oxygen for O2 sat's > 92% - continue bronchodilators with pulmonary hygiene per RT - VAP bundle addressed (Aspiration precautions, HOB >40) - continue to wean per pulmonary driven protocols - sedation target is RASS 0 to -1 - continue prn analgesia per CPOT score - follow clinically re: fever curves / trend WBC - Avoid delirium (no benzodiazepines if they can be avoided) - Maintain sleep-wake cycle - enteral nutrition at goal rate as tolerated - continue accucheck's with glycemic control per SSI for target blood glucose goal of 140-180 mg/dL while critically ill; Avoid hypoglycemia - for VTE he is on IV Heparin - continue stress ulcer prophylaxis with Famotidine - continue mobility protocols for pressure ulcer prophylaxis - continue fall precautions - continue wound care management per RN / WCT - Supportive transfusions to keep HgB>7g/dL - CXR's and ABG's prn - Continue to monitor neurologic function - Continue chronic home medications - Continue all supportive care ........ re-evaluate in am & prn CONDITION: CRITICAL PROGNOSIS: GUARDED CODE STATUS: FULL CODE The high probability of a clinically significant, sudden or life threatening deterioration of the [Respiratory, cardiovascular & neurological] system(s) required my full and direct attention, intervention and personal management. The aggregate critical care time was [33] minutes without overlap. Time includes spent on [x] Data Review and interpretation [x] Patient assessment and monitoring of vital signs [x] Documentation [x] Medication orders and management Subjective Date of service: 12/18/19 Principal diagnosis: Ac hypoxemic resp failure; Pneumonia; PUI COVID-19; CHF; COPD; HTN Interval history: Patient is seen today for: Acute hypoxemic respiratory failure; Adan. Pneumonia (CAP); PUI COVID-19 infection; AE-CHF; AE-COPD; H/O CVA; HTN Seen and examined at bedside; 24 hour events reviewed; nursing and respiratory care staff consulted; no adverse overnight events reported to me; resting peacefully in bed; did not tolerate weaning well and FiO2 increased to 50%; CXR suggests moderate right pleural effusion with compressive atelectasis; No emesis or overt aspiration Objective Vital Signs - 12hr 12/18/19 12/18/19 12/18/19 00:30 01:00 01:31 Temperature Pulse Rate 78 86 84 Pulse Rate [ From Monitor] Respiratory 14 18 15 Rate Respiratory Rate [Chest] Blood Pressure 107/76 107/76 132/82 O2 Sat by Pulse 96 94 97 Oximetry 12/18/19 12/18/19 12/18/19 02:00 02:31 03:00 Temperature Pulse Rate 81 73 86 Pulse Rate [ From Monitor] Respiratory 14 13 14 Rate Respiratory Rate [Chest] Blood Pressure 132/82 132/87 117/85 O2 Sat by Pulse 97 98 94 Oximetry 12/18/19 12/18/19 12/18/19 03:23 03:31 04:00 Temperature 98.9 F Pulse Rate 82 78 Pulse Rate [ 97 H From Monitor] Respiratory 14 15 Rate Respiratory 14 Rate [Chest] Blood Pressure 117/85 106/72 O2 Sat by Pulse 97 96 Oximetry 12/18/19 12/18/19 12/18/19 04:03 04:31 05:00 Temperature Pulse Rate 74 77 78 Pulse Rate [ From Monitor] Respiratory 13 12 Rate Respiratory Rate [Chest] Blood Pressure 106/72 106/72 113/71 O2 Sat by Pulse 98 99 91 Oximetry 12/18/19 12/18/19 12/18/19 05:31 06:00 06:31 Temperature Pulse Rate 80 79 76 Pulse Rate [ From Monitor] Respiratory 13 21 12 Rate Respiratory Rate [Chest] Blood Pressure 113/71 135/85 135/85 O2 Sat by Pulse 95 98 99 Oximetry 12/18/19 12/18/19 12/18/19 07:00 07:31 07:50 Temperature Pulse Rate 77 79 81 Pulse Rate [ From Monitor] Respiratory 12 10 L Rate Respiratory Rate [Chest] Blood Pressure 116/84 116/84 116/84 O2 Sat by Pulse 97 96 94 Oximetry 12/18/19 12/18/19 12/18/19 08:00 08:31 09:00 Temperature 98.4 F Pulse Rate 87 80 81 Pulse Rate [ 97 H From Monitor] Respiratory 16 15 13 Rate Respiratory 14 Rate [Chest] Blood Pressure 142/103 142/103 124/80 O2 Sat by Pulse 94 98 100 Oximetry 12/18/19 12/18/19 12/18/19 09:30 10:01 10:31 Temperature Pulse Rate 81 86 126 H Pulse Rate [ From Monitor] Respiratory 14 28 H 25 H Rate Respiratory Rate [Chest] Blood Pressure 124/80 124/80 124/80 O2 Sat by Pulse 100 87 90 Oximetry 12/18/19 12/18/19 12/18/19 11:00 11:21 11:31 Temperature Pulse Rate 118 H 102 H 99 H Pulse Rate [ From Monitor] Respiratory 22 19 Rate Respiratory Rate [Chest] Blood Pressure 179/122 149/90 149/90 O2 Sat by Pulse 96 96 94 Oximetry 12/18/19 12:00 Temperature 100.0 F H Pulse Rate 92 H Pulse Rate [ From Monitor] Respiratory 15 Rate Respiratory Rate [Chest] Blood Pressure 136/90 O2 Sat by Pulse 91 Oximetry Constitutional: agitated, appears uncomfortable, other (elderly and obese male, normocephalic with mildly increased respiratory effort at rest on MVS) Eyes: non-icteric ENT: oropharynx moist, other (ETT 24 cm JASON) Neck: supple, no JVD Effort: very labored Ascultation: Bilateral: diminished breath sounds (bases R>L), rhonchi Percussion: Bilateral: not dull Cardiovascular: irregular rhythm Gastrointestinal: normoactive bowel sounds, soft, non-tender, non-distended Integumentary: normal Extremities: no cyanosis, no edema, pulses normal, no ischemia or petechiae Neurologic: non-focal exam (moves all extremities with extreme agitation), pupils equal and round, motor strength normal and, other (sedated lightly) Psychiatric: other (unable to assesds re: AMS) CBC and BMP: 12/18/19 05:17 12/17/19 05:30 ABG, PT/INR, D-dimer: ABG ABG pH 7.439 (7.320-7.450) 12/02/19 12:58 POC ABG pCO2 45.1 mmHg (32.0-48.0) 12/02/19 12:58 ABG pCO2 43.4 mm Hg 11/30/19 04:56 POC ABG pO2 78.1 mmHg (83-108) L 12/02/19 12:58 ABG pO2 56.3 mm Hg (80.0-90.0) L 11/30/19 04:56 POC ABG HCO3 29.9 12/02/19 12:58 ABG O2 Saturation 91.5 % (95.0-99.0) L 11/30/19 04:56 PT/INR, D-dimer PT 14.0 Sec. (12.2-14.9) 12/10/19 21:20 INR 1.06 (0.87-1.13) 12/10/19 21:20 Abnormal lab findings: Abnormal Labs 11/24/19 11/24/19 11/24/19 02:53 02:53 03:45 WBC 14.3 H RBC Hgb Hct MCHC RDW 17.2 H Lymph % (Auto) [place] % (Auto) [place] # Eos # [place] # (Auto) Eos # (Auto) Seg Neutrophils % Seg Neuts % (Manual) Baso # (Auto) Lymphocytes % (Manual) Monocytes % (Manual) Eosinophils % (Manual) Basophils % (Manual) Seg Neutrophils # Seg Neutrophils # Man 8.3 H Lymphocytes # (Manual) Monocytes # (Manual) 0.9 H Eosinophils # (Manual) Basophils # (Manual) Heparin Anti-Xa Level ABG pH 7.313 L POC ABG pO2 ABG pO2 102.8 H ABG HCO3 ABG O2 Saturation ABG Base Excess -2.9 L ABG Hemoglobin ABG Oxyhemoglobin Oxyhemoglobin 93.9 L Sodium Potassium Chloride Carbon Dioxide BUN Creatinine Glucose 195 H POC Glucose Lactic Acid Calcium Phosphorus Magnesium AST ALT Lactate Dehydrogenase CK-MB (CK-2) 4.3 H C-Reactive Protein NT-Pro-B Natriuret Pep 1181 H Total Protein Albumin Urine WBC (Auto) 11/24/19 11/24/19 11/24/19 04:53 04:53 10:37 WBC RBC Hgb Hct MCHC RDW Lymph % (Auto) [place] % (Auto) [place] # Eos # [place] # (Auto) Eos # (Auto) Seg Neutrophils % Seg Neuts % (Manual) Baso # (Auto) Lymphocytes % (Manual) Monocytes % (Manual) Eosinophils % (Manual) Basophils % (Manual) Seg Neutrophils # Seg Neutrophils # Man Lymphocytes # (Manual) Monocytes # (Manual) Eosinophils # (Manual) Basophils # (Manual) Heparin Anti-Xa Level ABG pH POC ABG pO2 ABG pO2 ABG HCO3 ABG O2 Saturation ABG Base Excess ABG Hemoglobin ABG Oxyhemoglobin Oxyhemoglobin Sodium Potassium Chloride Carbon Dioxide BUN Creatinine Glucose 162 H POC Glucose Lactic Acid 2.40 H* 2.50 H* Calcium Phosphorus Magnesium AST ALT Lactate Dehydrogenase 240 H CK-MB (CK-2) C-Reactive Protein NT-Pro-B Natriuret Pep Total Protein Albumin Urine WBC (Auto) 11/24/19 11/24/19 11/24/19 12:21 14:50 19:54 WBC RBC Hgb Hct MCHC RDW Lymph % (Auto) [place] % (Auto) [place] # Eos # [place] # (Auto) Eos # (Auto) Seg Neutrophils % Seg Neuts % (Manual) Baso # (Auto) Lymphocytes % (Manual) Monocytes % (Manual) Eosinophils % (Manual) Basophils % (Manual) Seg Neutrophils # Seg Neutrophils # Man Lymphocytes # (Manual) Monocytes # (Manual) Eosinophils # (Manual) Basophils # (Manual) Heparin Anti-Xa Level ABG pH POC ABG pO2 ABG pO2 ABG HCO3 ABG O2 Saturation ABG Base Excess ABG Hemoglobin ABG Oxyhemoglobin Oxyhemoglobin Sodium Potassium Chloride Carbon Dioxide BUN Creatinine Glucose POC Glucose 145 H 143 H 124 H Lactic Acid Calcium Phosphorus Magnesium AST ALT Lactate Dehydrogenase CK-MB (CK-2) C-Reactive Protein NT-Pro-B Natriuret Pep Total Protein Albumin Urine WBC (Auto) 11/25/19 11/25/19 11/25/19 00:18 03:18 05:11 WBC 13.7 H RBC Hgb Hct MCHC RDW 17.1 H Lymph % (Auto) 10.8 L [place] % (Auto) 8.7 H [place] # 1.2 H Eos # [place] # (Auto) Eos # (Auto) Seg Neutrophils % 80.2 H Seg Neuts % (Manual) Baso # (Auto) Lymphocytes % (Manual) Monocytes % (Manual) Eosinophils % (Manual) Basophils % (Manual) Seg Neutrophils # 11.0 H Seg Neutrophils # Man Lymphocytes # (Manual) Monocytes # (Manual) Eosinophils # (Manual) Basophils # (Manual) Heparin Anti-Xa Level ABG pH 7.333 L POC ABG pO2 ABG pO2 61.2 L ABG HCO3 ABG O2 Saturation 90.2 L ABG Base Excess ABG Hemoglobin 13.7 L ABG Oxyhemoglobin Oxyhemoglobin 88.2 L Sodium Potassium Chloride Carbon Dioxide BUN Creatinine Glucose POC Glucose 109 H Lactic Acid Calcium Phosphorus Magnesium AST ALT Lactate Dehydrogenase CK-MB (CK-2) C-Reactive Protein NT-Pro-B Natriuret Pep Total Protein Albumin Urine WBC (Auto) 11/25/19 11/25/19 11/26/19 05:11 11:40 03:12 WBC RBC Hgb Hct MCHC RDW Lymph % (Auto) [place] % (Auto) [place] # Eos # [place] # (Auto) Eos # (Auto) Seg Neutrophils % Seg Neuts % (Manual) Baso # (Auto) Lymphocytes % (Manual) Monocytes % (Manual) Eosinophils % (Manual) Basophils % (Manual) Seg Neutrophils # Seg Neutrophils # Man Lymphocytes # (Manual) Monocytes # (Manual) Eosinophils # (Manual) Basophils # (Manual) Heparin Anti-Xa Level ABG pH POC ABG pO2 ABG pO2 155.1 H ABG HCO3 27.8 H ABG O2 Saturation ABG Base Excess ABG Hemoglobin 12.2 L ABG Oxyhemoglobin Oxyhemoglobin Sodium Potassium Chloride Carbon Dioxide BUN 23 H Creatinine Glucose 110 H POC Glucose 108 H Lactic Acid Calcium Phosphorus Magnesium AST ALT Lactate Dehydrogenase CK-MB (CK-2) C-Reactive Protein NT-Pro-B Natriuret Pep Total Protein Albumin Urine WBC (Auto) 11/26/19 11/26/19 11/26/19 06:17 10:43 10:43 WBC 11.4 H RBC Hgb Hct MCHC RDW 17.1 H Lymph % (Auto) [place] % (Auto) [place] # Eos # [place] # (Auto) Eos # (Auto) Seg Neutrophils % Seg Neuts % (Manual) Baso # (Auto) Lymphocytes % (Manual) Monocytes % (Manual) Eosinophils % (Manual) Basophils % (Manual) Seg Neutrophils # Seg Neutrophils # Man Lymphocytes # (Manual) Monocytes # (Manual) Eosinophils # (Manual) Basophils # (Manual) Heparin Anti-Xa Level ABG pH POC ABG pO2 ABG pO2 ABG HCO3 ABG O2 Saturation ABG Base Excess ABG Hemoglobin ABG Oxyhemoglobin Oxyhemoglobin Sodium Potassium Chloride Carbon Dioxide BUN 29 H Creatinine Glucose POC Glucose 107 H Lactic Acid Calcium Phosphorus Magnesium AST ALT Lactate Dehydrogenase CK-MB (CK-2) C-Reactive Protein NT-Pro-B Natriuret Pep Total Protein Albumin Urine WBC (Auto) 11/26/19 11/27/19 11/27/19 17:11 01:53 04:11 WBC RBC Hgb Hct MCHC RDW Lymph % (Auto) [place] % (Auto) [place] # Eos # [place] # (Auto) Eos # (Auto) Seg Neutrophils % Seg Neuts % (Manual) Baso # (Auto) Lymphocytes % (Manual) Monocytes % (Manual) Eosinophils % (Manual) Basophils % (Manual) Seg Neutrophils # Seg Neutrophils # Man Lymphocytes # (Manual) Monocytes # (Manual) Eosinophils # (Manual) Basophils # (Manual) Heparin Anti-Xa Level ABG pH POC ABG pO2 ABG pO2 ABG HCO3 29.2 H ABG O2 Saturation ABG Base Excess 3.4 H ABG Hemoglobin 13.3 L ABG Oxyhemoglobin Oxyhemoglobin 94.5 L Sodium Potassium Chloride Carbon Dioxide BUN Creatinine Glucose POC Glucose 113 H 108 H Lactic Acid Calcium Phosphorus Magnesium AST ALT Lactate Dehydrogenase CK-MB (CK-2) C-Reactive Protein NT-Pro-B Natriuret Pep Total Protein Albumin Urine WBC (Auto) 11/27/19 11/28/19 11/28/19 05:27 05:00 05:25 WBC RBC Hgb Hct MCHC RDW Lymph % (Auto) [place] % (Auto) [place] # Eos # [place] # (Auto) Eos # (Auto) Seg Neutrophils % Seg Neuts % (Manual) Baso # (Auto) Lymphocytes % (Manual) Monocytes % (Manual) Eosinophils % (Manual) Basophils % (Manual) Seg Neutrophils # Seg Neutrophils # Man Lymphocytes # (Manual) Monocytes # (Manual) Eosinophils # (Manual) Basophils # (Manual) Heparin Anti-Xa Level ABG pH POC ABG pO2 68.1 L ABG pO2 ABG HCO3 ABG O2 Saturation ABG Base Excess ABG Hemoglobin ABG Oxyhemoglobin 91.2 L Oxyhemoglobin Sodium Potassium Chloride Carbon Dioxide BUN Creatinine Glucose POC Glucose 111 H 110 H Lactic Acid Calcium Phosphorus Magnesium AST ALT Lactate Dehydrogenase CK-MB (CK-2) C-Reactive Protein NT-Pro-B Natriuret Pep Total Protein Albumin Urine WBC (Auto) 11/28/19 11/28/19 11/28/19 12:08 13:47 13:47 WBC 11.3 H RBC Hgb Hct MCHC RDW 16.1 H Lymph % (Auto) [place] % (Auto) 9.9 H [place] # 1.1 H Eos # [place] # (Auto) Eos # (Auto) Seg Neutrophils % 71.4 H Seg Neuts % (Manual) Baso # (Auto) Lymphocytes % (Manual) Monocytes % (Manual) Eosinophils % (Manual) Basophils % (Manual) Seg Neutrophils # 8.1 H Seg Neutrophils # Man Lymphocytes # (Manual) Monocytes # (Manual) Eosinophils # (Manual) Basophils # (Manual) Heparin Anti-Xa Level ABG pH POC ABG pO2 ABG pO2 ABG HCO3 ABG O2 Saturation ABG Base Excess ABG Hemoglobin ABG Oxyhemoglobin Oxyhemoglobin Sodium Potassium Chloride Carbon Dioxide BUN 23 H Creatinine Glucose 123 H POC Glucose 112 H Lactic Acid Calcium Phosphorus Magnesium AST ALT Lactate Dehydrogenase CK-MB (CK-2) C-Reactive Protein NT-Pro-B Natriuret Pep Total Protein Albumin 3.7 L Urine WBC (Auto) 11/28/19 11/29/19 11/29/19 17:26 03:55 17:04 WBC RBC Hgb Hct MCHC RDW Lymph % (Auto) [place] % (Auto) [place] # Eos # [place] # (Auto) Eos # (Auto) Seg Neutrophils % Seg Neuts % (Manual) Baso # (Auto) Lymphocytes % (Manual) Monocytes % (Manual) Eosinophils % (Manual) Basophils % (Manual) Seg Neutrophils # Seg Neutrophils # Man Lymphocytes # (Manual) Monocytes # (Manual) Eosinophils # (Manual) Basophils # (Manual) Heparin Anti-Xa Level ABG pH POC ABG pO2 ABG pO2 65.7 L ABG HCO3 28.3 H ABG O2 Saturation 93.9 L ABG Base Excess 3.6 H ABG Hemoglobin 13.3 L ABG Oxyhemoglobin Oxyhemoglobin 91.5 L Sodium Potassium Chloride Carbon Dioxide BUN Creatinine Glucose POC Glucose 123 H 119 H Lactic Acid Calcium Phosphorus Magnesium AST ALT Lactate Dehydrogenase CK-MB (CK-2) C-Reactive Protein NT-Pro-B Natriuret Pep Total Protein Albumin Urine WBC (Auto) 11/30/19 11/30/19 11/30/19 04:17 04:17 04:56 WBC 13.4 H RBC Hgb Hct MCHC RDW 15.6 H Lymph % (Auto) [place] % (Auto) [place] # Eos # [place] # (Auto) Eos # (Auto) Seg Neutrophils % Seg Neuts % (Manual) Baso # (Auto) Lymphocytes % (Manual) Monocytes % (Manual) Eosinophils % (Manual) Basophils % (Manual) Seg Neutrophils # Seg Neutrophils # Man Lymphocytes # (Manual) Monocytes # (Manual) Eosinophils # (Manual) Basophils # (Manual) Heparin Anti-Xa Level ABG pH POC ABG pO2 ABG pO2 56.3 L ABG HCO3 29.3 H ABG O2 Saturation 91.5 L ABG Base Excess 4.7 H ABG Hemoglobin 12.1 L ABG Oxyhemoglobin Oxyhemoglobin 89.2 L Sodium 147 H Potassium Chloride Carbon Dioxide BUN 30 H Creatinine Glucose 124 H POC Glucose Lactic Acid Calcium Phosphorus Magnesium AST ALT Lactate Dehydrogenase CK-MB (CK-2) C-Reactive Protein NT-Pro-B Natriuret Pep Total Protein Albumin 3.8 L Urine WBC (Auto) 11/30/19 11/30/19 11/30/19 05:51 11:54 18:17 WBC RBC Hgb Hct MCHC RDW Lymph % (Auto) [place] % (Auto) [place] # Eos # [place] # (Auto) Eos # (Auto) Seg Neutrophils % Seg Neuts % (Manual) Baso # (Auto) Lymphocytes % (Manual) Monocytes % (Manual) Eosinophils % (Manual) Basophils % (Manual) Seg Neutrophils # Seg Neutrophils # Man Lymphocytes # (Manual) Monocytes # (Manual) Eosinophils # (Manual) Basophils # (Manual) Heparin Anti-Xa Level ABG pH POC ABG pO2 ABG pO2 ABG HCO3 ABG O2 Saturation ABG Base Excess ABG Hemoglobin ABG Oxyhemoglobin Oxyhemoglobin Sodium Potassium Chloride Carbon Dioxide BUN Creatinine Glucose POC Glucose 127 H 115 H 143 H Lactic Acid Calcium Phosphorus Magnesium AST ALT Lactate Dehydrogenase CK-MB (CK-2) C-Reactive Protein NT-Pro-B Natriuret Pep Total Protein Albumin Urine WBC (Auto) 12/01/19 12/01/19 12/01/19 01:18 05:22 12:16 WBC RBC Hgb Hct MCHC RDW Lymph % (Auto) [place] % (Auto) [place] # Eos # [place] # (Auto) Eos # (Auto) Seg Neutrophils % Seg Neuts % (Manual) Baso # (Auto) Lymphocytes % (Manual) Monocytes % (Manual) Eosinophils % (Manual) Basophils % (Manual) Seg Neutrophils # Seg Neutrophils # Man Lymphocytes # (Manual) Monocytes # (Manual) Eosinophils # (Manual) Basophils # (Manual) Heparin Anti-Xa Level ABG pH POC ABG pO2 ABG pO2 ABG HCO3 ABG O2 Saturation ABG Base Excess ABG Hemoglobin ABG Oxyhemoglobin Oxyhemoglobin Sodium Potassium 3.5 L Chloride 107.8 H Carbon Dioxide BUN 37 H Creatinine Glucose 157 H POC Glucose 118 H 148 H Lactic Acid Calcium 8.2 L D Phosphorus Magnesium AST 48 H ALT 60 H Lactate Dehydrogenase 194 H CK-MB (CK-2) C-Reactive Protein 8.50 H NT-Pro-B Natriuret Pep Total Protein 5.5 L Albumin 2.8 L Urine WBC (Auto) 12/01/19 12/02/19 12/02/19 18:04 00:05 05:16 WBC 11.4 H RBC Hgb Hct MCHC RDW 15.9 H Lymph % (Auto) [place] % (Auto) 9.9 H [place] # 1.1 H Eos # [place] # (Auto) Eos # (Auto) Seg Neutrophils % 70.3 H Seg Neuts % (Manual) Baso # (Auto) Lymphocytes % (Manual) Monocytes % (Manual) Eosinophils % (Manual) Basophils % (Manual) Seg Neutrophils # 8.0 H Seg Neutrophils # Man Lymphocytes # (Manual) Monocytes # (Manual) Eosinophils # (Manual) Basophils # (Manual) Heparin Anti-Xa Level ABG pH POC ABG pO2 ABG pO2 ABG HCO3 ABG O2 Saturation ABG Base Excess ABG Hemoglobin ABG Oxyhemoglobin Oxyhemoglobin Sodium Potassium Chloride Carbon Dioxide BUN Creatinine Glucose POC Glucose 143 H 107 H Lactic Acid Calcium Phosphorus Magnesium AST ALT Lactate Dehydrogenase CK-MB (CK-2) C-Reactive Protein NT-Pro-B Natriuret Pep Total Protein Albumin Urine WBC (Auto) 12/02/19 12/02/19 12/02/19 05:16 06:03 11:52 WBC RBC Hgb Hct MCHC RDW Lymph % (Auto) [place] % (Auto) [place] # Eos # [place] # (Auto) Eos # (Auto) Seg Neutrophils % Seg Neuts % (Manual) Baso # (Auto) Lymphocytes % (Manual) Monocytes % (Manual) Eosinophils % (Manual) Basophils % (Manual) Seg Neutrophils # Seg Neutrophils # Man Lymphocytes # (Manual) Monocytes # (Manual) Eosinophils # (Manual) Basophils # (Manual) Heparin Anti-Xa Level ABG pH POC ABG pO2 ABG pO2 ABG HCO3 ABG O2 Saturation ABG Base Excess ABG Hemoglobin ABG Oxyhemoglobin Oxyhemoglobin Sodium 146 H Potassium Chloride Carbon Dioxide BUN 28 H Creatinine Glucose 123 H POC Glucose 110 H 152 H Lactic Acid Calcium Phosphorus Magnesium AST ALT Lactate Dehydrogenase CK-MB (CK-2) C-Reactive Protein NT-Pro-B Natriuret Pep Total Protein Albumin Urine WBC (Auto) 12/02/19 12/02/19 12/02/19 12:58 17:58 23:36 WBC RBC Hgb Hct MCHC RDW Lymph % (Auto) [place] % (Auto) [place] # Eos # [place] # (Auto) Eos # (Auto) Seg Neutrophils % Seg Neuts % (Manual) Baso # (Auto) Lymphocytes % (Manual) Monocytes % (Manual) Eosinophils % (Manual) Basophils % (Manual) Seg Neutrophils # Seg Neutrophils # Man Lymphocytes # (Manual) Monocytes # (Manual) Eosinophils # (Manual) Basophils # (Manual) Heparin Anti-Xa Level ABG pH POC ABG pO2 78.1 L ABG pO2 ABG HCO3 ABG O2 Saturation ABG Base Excess ABG Hemoglobin ABG Oxyhemoglobin Oxyhemoglobin Sodium Potassium Chloride Carbon Dioxide BUN Creatinine Glucose POC Glucose 120 H 123 H Lactic Acid Calcium Phosphorus Magnesium AST ALT Lactate Dehydrogenase CK-MB (CK-2) C-Reactive Protein NT-Pro-B Natriuret Pep Total Protein Albumin Urine WBC (Auto) 12/03/19 12/03/19 12/03/19 06:03 06:14 11:46 WBC RBC Hgb Hct MCHC RDW Lymph % (Auto) [place] % (Auto) [place] # Eos # [place] # (Auto) Eos # (Auto) Seg Neutrophils % Seg Neuts % (Manual) Baso # (Auto) Lymphocytes % (Manual) Monocytes % (Manual) Eosinophils % (Manual) Basophils % (Manual) Seg Neutrophils # Seg Neutrophils # Man Lymphocytes # (Manual) Monocytes # (Manual) Eosinophils # (Manual) Basophils # (Manual) Heparin Anti-Xa Level ABG pH POC ABG pO2 ABG pO2 ABG HCO3 ABG O2 Saturation ABG Base Excess ABG Hemoglobin ABG Oxyhemoglobin Oxyhemoglobin Sodium Potassium Chloride Carbon Dioxide BUN Creatinine Glucose POC Glucose 142 H 130 H Lactic Acid Calcium Phosphorus Magnesium AST ALT Lactate Dehydrogenase CK-MB (CK-2) C-Reactive Protein NT-Pro-B Natriuret Pep Total Protein Albumin Urine WBC (Auto) 8.0 H 12/03/19 12/03/19 12/04/19 15:50 17:39 00:04 WBC RBC Hgb Hct MCHC RDW Lymph % (Auto) [place] % (Auto) [place] # Eos # [place] # (Auto) Eos # (Auto) Seg Neutrophils % Seg Neuts % (Manual) Baso # (Auto) Lymphocytes % (Manual) Monocytes % (Manual) Eosinophils % (Manual) Basophils % (Manual) Seg Neutrophils # Seg Neutrophils # Man Lymphocytes # (Manual) Monocytes # (Manual) Eosinophils # (Manual) Basophils # (Manual) Heparin Anti-Xa Level ABG pH POC ABG pO2 ABG pO2 ABG HCO3 ABG O2 Saturation ABG Base Excess ABG Hemoglobin ABG Oxyhemoglobin Oxyhemoglobin Sodium Potassium Chloride Carbon Dioxide BUN Creatinine Glucose POC Glucose 146 H 133 H Lactic Acid Calcium Phosphorus 2.40 L Magnesium AST ALT Lactate Dehydrogenase CK-MB (CK-2) C-Reactive Protein NT-Pro-B Natriuret Pep Total Protein Albumin Urine WBC (Auto) 12/04/19 12/04/19 12/04/19 03:58 03:58 05:22 WBC 12.5 H RBC Hgb 11.2 L Hct 35.2 L MCHC RDW 16.0 H Lymph % (Auto) [place] % (Auto) 9.6 H [place] # 1.2 H Eos # 0.5 H [place] # (Auto) Eos # (Auto) Seg Neutrophils % Seg Neuts % (Manual) Baso # (Auto) Lymphocytes % (Manual) Monocytes % (Manual) Eosinophils % (Manual) Basophils % (Manual) Seg Neutrophils # 8.6 H Seg Neutrophils # Man Lymphocytes # (Manual) Monocytes # (Manual) Eosinophils # (Manual) Basophils # (Manual) Heparin Anti-Xa Level ABG pH POC ABG pO2 ABG pO2 ABG HCO3 ABG O2 Saturation ABG Base Excess ABG Hemoglobin ABG Oxyhemoglobin Oxyhemoglobin Sodium 146 H Potassium Chloride 108.6 H Carbon Dioxide BUN 30 H Creatinine 0.7 L Glucose 121 H POC Glucose 132 H Lactic Acid Calcium Phosphorus Magnesium AST ALT Lactate Dehydrogenase CK-MB (CK-2) C-Reactive Protein NT-Pro-B Natriuret Pep Total Protein Albumin Urine WBC (Auto) 12/04/19 12/04/19 12/05/19 13:26 18:43 00:19 WBC RBC Hgb Hct MCHC RDW Lymph % (Auto) [place] % (Auto) [place] # Eos # [place] # (Auto) Eos # (Auto) Seg Neutrophils % Seg Neuts % (Manual) Baso # (Auto) Lymphocytes % (Manual) Monocytes % (Manual) Eosinophils % (Manual) Basophils % (Manual) Seg Neutrophils # Seg Neutrophils # Man Lymphocytes # (Manual) Monocytes # (Manual) Eosinophils # (Manual) Basophils # (Manual) Heparin Anti-Xa Level ABG pH POC ABG pO2 ABG pO2 ABG HCO3 ABG O2 Saturation ABG Base Excess ABG Hemoglobin ABG Oxyhemoglobin Oxyhemoglobin Sodium Potassium Chloride Carbon Dioxide BUN Creatinine Glucose POC Glucose 185 H 156 H 150 H Lactic Acid Calcium Phosphorus Magnesium AST ALT Lactate Dehydrogenase CK-MB (CK-2) C-Reactive Protein NT-Pro-B Natriuret Pep Total Protein Albumin Urine WBC (Auto) 12/05/19 12/05/19 12/05/19 03:37 03:37 05:14 WBC 16.3 H RBC Hgb 11.4 L Hct MCHC RDW 15.6 H Lymph % (Auto) 9.9 L [place] % (Auto) 9.7 H [place] # 1.6 H Eos # [place] # (Auto) Eos # (Auto) Seg Neutrophils % 78.0 H Seg Neuts % (Manual) Baso # (Auto) Lymphocytes % (Manual) Monocytes % (Manual) Eosinophils % (Manual) Basophils % (Manual) Seg Neutrophils # 12.7 H Seg Neutrophils # Man Lymphocytes # (Manual) Monocytes # (Manual) Eosinophils # (Manual) Basophils # (Manual) Heparin Anti-Xa Level ABG pH POC ABG pO2 ABG pO2 ABG HCO3 ABG O2 Saturation ABG Base Excess ABG Hemoglobin ABG Oxyhemoglobin Oxyhemoglobin Sodium 146 H Potassium Chloride 107.2 H Carbon Dioxide BUN 27 H Creatinine 0.7 L Glucose 171 H POC Glucose 168 H Lactic Acid Calcium Phosphorus Magnesium AST ALT Lactate Dehydrogenase CK-MB (CK-2) C-Reactive Protein NT-Pro-B Natriuret Pep Total Protein Albumin Urine WBC (Auto) 12/05/19 12/05/19 12/05/19 12:31 18:10 23:58 WBC RBC Hgb Hct MCHC RDW Lymph % (Auto) [place] % (Auto) [place] # Eos # [place] # (Auto) Eos # (Auto) Seg Neutrophils % Seg Neuts % (Manual) Baso # (Auto) Lymphocytes % (Manual) Monocytes % (Manual) Eosinophils % (Manual) Basophils % (Manual) Seg Neutrophils # Seg Neutrophils # Man Lymphocytes # (Manual) Monocytes # (Manual) Eosinophils # (Manual) Basophils # (Manual) Heparin Anti-Xa Level ABG pH POC ABG pO2 ABG pO2 ABG HCO3 ABG O2 Saturation ABG Base Excess ABG Hemoglobin ABG Oxyhemoglobin Oxyhemoglobin Sodium Potassium Chloride Carbon Dioxide BUN Creatinine Glucose POC Glucose 159 H 198 H 115 H Lactic Acid Calcium Phosphorus Magnesium AST ALT Lactate Dehydrogenase CK-MB (CK-2) C-Reactive Protein NT-Pro-B Natriuret Pep Total Protein Albumin Urine WBC (Auto) 12/06/19 12/06/19 12/06/19 05:24 05:24 05:25 WBC 14.9 H RBC Hgb 10.8 L Hct 34.0 L MCHC RDW 15.6 H Lymph % (Auto) 10.7 L [place] % (Auto) 8.3 H [place] # 1.2 H Eos # [place] # (Auto) Eos # (Auto) Seg Neutrophils % 78.7 H Seg Neuts % (Manual) Baso # (Auto) Lymphocytes % (Manual) Monocytes % (Manual) Eosinophils % (Manual) Basophils % (Manual) Seg Neutrophils # 11.7 H Seg Neutrophils # Man Lymphocytes # (Manual) Monocytes # (Manual) Eosinophils # (Manual) Basophils # (Manual) Heparin Anti-Xa Level ABG pH POC ABG pO2 ABG pO2 ABG HCO3 ABG O2 Saturation ABG Base Excess ABG Hemoglobin ABG Oxyhemoglobin Oxyhemoglobin Sodium 148 H Potassium 5.1 H Chloride 107.6 H Carbon Dioxide BUN 27 H Creatinine 0.7 L Glucose 155 H POC Glucose 157 H Lactic Acid Calcium Phosphorus Magnesium AST ALT Lactate Dehydrogenase CK-MB (CK-2) C-Reactive Protein NT-Pro-B Natriuret Pep Total Protein Albumin Urine WBC (Auto) 12/07/19 12/07/19 12/07/19 00:13 05:34 11:33 WBC RBC Hgb Hct MCHC RDW Lymph % (Auto) [place] % (Auto) [place] # Eos # [place] # (Auto) Eos # (Auto) Seg Neutrophils % Seg Neuts % (Manual) Baso # (Auto) Lymphocytes % (Manual) Monocytes % (Manual) Eosinophils % (Manual) Basophils % (Manual) Seg Neutrophils # Seg Neutrophils # Man Lymphocytes # (Manual) Monocytes # (Manual) Eosinophils # (Manual) Basophils # (Manual) Heparin Anti-Xa Level ABG pH POC ABG pO2 ABG pO2 ABG HCO3 ABG O2 Saturation ABG Base Excess ABG Hemoglobin ABG Oxyhemoglobin Oxyhemoglobin Sodium Potassium Chloride Carbon Dioxide BUN Creatinine Glucose POC Glucose 142 H 111 H 169 H Lactic Acid Calcium Phosphorus Magnesium AST ALT Lactate Dehydrogenase CK-MB (CK-2) C-Reactive Protein NT-Pro-B Natriuret Pep Total Protein Albumin Urine WBC (Auto) 12/07/19 12/07/19 12/07/19 12:41 13:25 18:19 WBC 12.4 H RBC 3.53 L Hgb 10.2 L Hct 32.1 L MCHC RDW 15.3 H Lymph % (Auto) 10.6 L [place] % (Auto) 7.8 H [place] # 1.0 H Eos # [place] # (Auto) Eos # (Auto) Seg Neutrophils % 77.6 H Seg Neuts % (Manual) Baso # (Auto) Lymphocytes % (Manual) Monocytes % (Manual) Eosinophils % (Manual) Basophils % (Manual) Seg Neutrophils # 9.6 H Seg Neutrophils # Man Lymphocytes # (Manual) Monocytes # (Manual) Eosinophils # (Manual) Basophils # (Manual) Heparin Anti-Xa Level ABG pH POC ABG pO2 ABG pO2 ABG HCO3 ABG O2 Saturation ABG Base Excess ABG Hemoglobin ABG Oxyhemoglobin Oxyhemoglobin Sodium 149 H Potassium Chloride 108.4 H Carbon Dioxide BUN 26 H Creatinine 0.6 L Glucose 149 H POC Glucose 164 H Lactic Acid Calcium Phosphorus Magnesium 2.60 H AST 121 H ALT 145 H Lactate Dehydrogenase CK-MB (CK-2) C-Reactive Protein NT-Pro-B Natriuret Pep Total Protein Albumin 2.6 L Urine WBC (Auto) 12/07/19 12/08/19 12/08/19 22:25 00:02 03:55 WBC 13.3 H RBC 3.40 L Hgb 9.7 L Hct 30.8 L MCHC 31 L RDW 15.5 H Lymph % (Auto) [place] % (Auto) 8.1 H [place] # 1.1 H Eos # [place] # (Auto) Eos # (Auto) Seg Neutrophils % 73.0 H Seg Neuts % (Manual) Baso # (Auto) Lymphocytes % (Manual) Monocytes % (Manual) Eosinophils % (Manual) Basophils % (Manual) Seg Neutrophils # 9.7 H Seg Neutrophils # Man Lymphocytes # (Manual) Monocytes # (Manual) Eosinophils # (Manual) Basophils # (Manual) Heparin Anti-Xa Level 0.12 L ABG pH POC ABG pO2 ABG pO2 ABG HCO3 ABG O2 Saturation ABG Base Excess ABG Hemoglobin ABG Oxyhemoglobin Oxyhemoglobin Sodium Potassium Chloride Carbon Dioxide BUN Creatinine Glucose POC Glucose 151 H Lactic Acid Calcium Phosphorus Magnesium AST ALT Lactate Dehydrogenase CK-MB (CK-2) C-Reactive Protein NT-Pro-B Natriuret Pep Total Protein Albumin Urine WBC (Auto) 12/08/19 12/08/19 12/08/19 03:55 05:21 06:01 WBC RBC Hgb Hct MCHC RDW Lymph % (Auto) [place] % (Auto) [place] # Eos # [place] # (Auto) Eos # (Auto) Seg Neutrophils % Seg Neuts % (Manual) Baso # (Auto) Lymphocytes % (Manual) Monocytes % (Manual) Eosinophils % (Manual) Basophils % (Manual) Seg Neutrophils # Seg Neutrophils # Man Lymphocytes # (Manual) Monocytes # (Manual) Eosinophils # (Manual) Basophils # (Manual) Heparin Anti-Xa Level 0.20 L ABG pH POC ABG pO2 ABG pO2 ABG HCO3 ABG O2 Saturation ABG Base Excess ABG Hemoglobin ABG Oxyhemoglobin Oxyhemoglobin Sodium 149 H Potassium Chloride 108.0 H Carbon Dioxide BUN 28 H Creatinine 0.6 L Glucose 144 H POC Glucose 143 H Lactic Acid Calcium Phosphorus Magnesium AST 98 H ALT 145 H Lactate Dehydrogenase CK-MB (CK-2) C-Reactive Protein NT-Pro-B Natriuret Pep Total Protein 6.0 L Albumin 2.4 L Urine WBC (Auto) 12/08/19 12/08/19 12/08/19 12:08 18:11 23:53 WBC RBC Hgb Hct MCHC RDW Lymph % (Auto) [place] % (Auto) [place] # Eos # [place] # (Auto) Eos # (Auto) Seg Neutrophils % Seg Neuts % (Manual) Baso # (Auto) Lymphocytes % (Manual) Monocytes % (Manual) Eosinophils % (Manual) Basophils % (Manual) Seg Neutrophils # Seg Neutrophils # Man Lymphocytes # (Manual) Monocytes # (Manual) Eosinophils # (Manual) Basophils # (Manual) Heparin Anti-Xa Level ABG pH POC ABG pO2 ABG pO2 ABG HCO3 ABG O2 Saturation ABG Base Excess ABG Hemoglobin ABG Oxyhemoglobin Oxyhemoglobin Sodium Potassium Chloride Carbon Dioxide BUN Creatinine Glucose POC Glucose 172 H 122 H 162 H Lactic Acid Calcium Phosphorus Magnesium AST ALT Lactate Dehydrogenase CK-MB (CK-2) C-Reactive Protein NT-Pro-B Natriuret Pep Total Protein Albumin Urine WBC (Auto) 12/09/19 12/09/19 12/09/19 04:03 04:03 05:53 WBC RBC Hgb 9.1 L Hct 28.9 L MCHC RDW Lymph % (Auto) [place] % (Auto) [place] # Eos # [place] # (Auto) Eos # (Auto) Seg Neutrophils % Seg Neuts % (Manual) Baso # (Auto) Lymphocytes % (Manual) Monocytes % (Manual) Eosinophils % (Manual) Basophils % (Manual) Seg Neutrophils # Seg Neutrophils # Man Lymphocytes # (Manual) Monocytes # (Manual) Eosinophils # (Manual) Basophils # (Manual) Heparin Anti-Xa Level 0.15 L ABG pH POC ABG pO2 ABG pO2 ABG HCO3 ABG O2 Saturation ABG Base Excess ABG Hemoglobin ABG Oxyhemoglobin Oxyhemoglobin Sodium Potassium Chloride Carbon Dioxide BUN Creatinine Glucose POC Glucose 124 H Lactic Acid Calcium Phosphorus Magnesium AST ALT Lactate Dehydrogenase CK-MB (CK-2) C-Reactive Protein NT-Pro-B Natriuret Pep Total Protein Albumin Urine WBC (Auto) 12/09/19 12/09/19 12/10/19 09:43 12:41 00:13 WBC RBC Hgb Hct MCHC RDW Lymph % (Auto) [place] % (Auto) [place] # Eos # [place] # (Auto) Eos # (Auto) Seg Neutrophils % Seg Neuts % (Manual) Baso # (Auto) Lymphocytes % (Manual) Monocytes % (Manual) Eosinophils % (Manual) Basophils % (Manual) Seg Neutrophils # Seg Neutrophils # Man Lymphocytes # (Manual) Monocytes # (Manual) Eosinophils # (Manual) Basophils # (Manual) Heparin Anti-Xa Level ABG pH POC ABG pO2 ABG pO2 ABG HCO3 ABG O2 Saturation ABG Base Excess ABG Hemoglobin ABG Oxyhemoglobin Oxyhemoglobin Sodium Potassium Chloride Carbon Dioxide BUN 25 H Creatinine 0.6 L Glucose 131 H POC Glucose 109 H 120 H Lactic Acid Calcium Phosphorus Magnesium AST ALT Lactate Dehydrogenase CK-MB (CK-2) C-Reactive Protein NT-Pro-B Natriuret Pep Total Protein Albumin Urine WBC (Auto) 12/10/19 12/10/19 12/10/19 04:14 04:14 12:00 WBC 13.3 H RBC 3.34 L Hgb 9.6 L Hct 30.4 L MCHC RDW 15.4 H Lymph % (Auto) [place] % (Auto) [place] # Eos # [place] # (Auto) Eos # (Auto) Seg Neutrophils % Seg Neuts % (Manual) 75.0 H Baso # (Auto) Lymphocytes % (Manual) 13.0 L Monocytes % (Manual) 8.0 H Eosinophils % (Manual) Basophils % (Manual) 2.0 H Seg Neutrophils # Seg Neutrophils # Man 10.0 H Lymphocytes # (Manual) Monocytes # (Manual) 1.1 H Eosinophils # (Manual) Basophils # (Manual) 0.3 H Heparin Anti-Xa Level ABG pH POC ABG pO2 ABG pO2 ABG HCO3 ABG O2 Saturation ABG Base Excess ABG Hemoglobin ABG Oxyhemoglobin Oxyhemoglobin Sodium 147 H Potassium Chloride 108.3 H Carbon Dioxide BUN 21 H Creatinine 0.6 L Glucose 104 H POC Glucose 133 H Lactic Acid Calcium Phosphorus Magnesium AST ALT Lactate Dehydrogenase CK-MB (CK-2) C-Reactive Protein NT-Pro-B Natriuret Pep Total Protein Albumin Urine WBC (Auto) 12/10/19 12/10/19 12/11/19 18:44 21:20 00:08 WBC 14.9 H RBC 3.36 L Hgb 9.6 L Hct 30.5 L MCHC RDW 15.4 H Lymph % (Auto) [place] % (Auto) [place] # Eos # [place] # (Auto) Eos # (Auto) Seg Neutrophils % Seg Neuts % (Manual) Baso # (Auto) Lymphocytes % (Manual) Monocytes % (Manual) Eosinophils % (Manual) Basophils % (Manual) Seg Neutrophils # Seg Neutrophils # Man Lymphocytes # (Manual) Monocytes # (Manual) Eosinophils # (Manual) Basophils # (Manual) Heparin Anti-Xa Level ABG pH POC ABG pO2 ABG pO2 ABG HCO3 ABG O2 Saturation ABG Base Excess ABG Hemoglobin ABG Oxyhemoglobin Oxyhemoglobin Sodium Potassium Chloride Carbon Dioxide BUN Creatinine Glucose POC Glucose 119 H 134 H Lactic Acid Calcium Phosphorus Magnesium AST ALT Lactate Dehydrogenase CK-MB (CK-2) C-Reactive Protein NT-Pro-B Natriuret Pep Total Protein Albumin Urine WBC (Auto) 12/11/19 12/11/19 12/11/19 03:54 07:28 08:36 WBC 11.9 H RBC 3.25 L Hgb 9.6 L Hct 29.2 L MCHC RDW 15.7 H Lymph % (Auto) [place] % (Auto) [place] # Eos # [place] # (Auto) Eos # (Auto) Seg Neutrophils % Seg Neuts % (Manual) Baso # (Auto) Lymphocytes % (Manual) Monocytes % (Manual) Eosinophils % (Manual) Basophils % (Manual) Seg Neutrophils # Seg Neutrophils # Man Lymphocytes # (Manual) Monocytes # (Manual) Eosinophils # (Manual) Basophils # (Manual) Heparin Anti-Xa Level 0.10 L 0.16 L ABG pH POC ABG pO2 ABG pO2 ABG HCO3 ABG O2 Saturation ABG Base Excess ABG Hemoglobin ABG Oxyhemoglobin Oxyhemoglobin Sodium Potassium Chloride Carbon Dioxide BUN Creatinine Glucose POC Glucose Lactic Acid Calcium Phosphorus Magnesium AST ALT Lactate Dehydrogenase CK-MB (CK-2) C-Reactive Protein NT-Pro-B Natriuret Pep Total Protein Albumin Urine WBC (Auto) 12/11/19 12/11/19 12/11/19 08:36 11:45 17:15 WBC RBC Hgb Hct MCHC RDW Lymph % (Auto) [place] % (Auto) [place] # Eos # [place] # (Auto) Eos # (Auto) Seg Neutrophils % Seg Neuts % (Manual) Baso # (Auto) Lymphocytes % (Manual) Monocytes % (Manual) Eosinophils % (Manual) Basophils % (Manual) Seg Neutrophils # Seg Neutrophils # Man Lymphocytes # (Manual) Monocytes # (Manual) Eosinophils # (Manual) Basophils # (Manual) Heparin Anti-Xa Level ABG pH POC ABG pO2 ABG pO2 ABG HCO3 ABG O2 Saturation ABG Base Excess ABG Hemoglobin ABG Oxyhemoglobin Oxyhemoglobin Sodium Potassium Chloride Carbon Dioxide BUN Creatinine 0.5 L Glucose 128 H POC Glucose 136 H 109 H Lactic Acid Calcium Phosphorus Magnesium AST ALT Lactate Dehydrogenase CK-MB (CK-2) C-Reactive Protein NT-Pro-B Natriuret Pep Total Protein Albumin Urine WBC (Auto) 12/12/19 12/12/19 12/12/19 00:03 05:53 05:53 WBC RBC Hgb 8.8 L Hct 27.6 L MCHC RDW Lymph % (Auto) [place] % (Auto) [place] # Eos # [place] # (Auto) Eos # (Auto) Seg Neutrophils % Seg Neuts % (Manual) Baso # (Auto) Lymphocytes % (Manual) Monocytes % (Manual) Eosinophils % (Manual) Basophils % (Manual) Seg Neutrophils # Seg Neutrophils # Man Lymphocytes # (Manual) Monocytes # (Manual) Eosinophils # (Manual) Basophils # (Manual) Heparin Anti-Xa Level 0.22 L ABG pH POC ABG pO2 ABG pO2 ABG HCO3 ABG O2 Saturation ABG Base Excess ABG Hemoglobin ABG Oxyhemoglobin Oxyhemoglobin Sodium Potassium Chloride Carbon Dioxide BUN Creatinine Glucose POC Glucose 116 H Lactic Acid Calcium Phosphorus Magnesium AST ALT Lactate Dehydrogenase CK-MB (CK-2) C-Reactive Protein NT-Pro-B Natriuret Pep Total Protein Albumin Urine WBC (Auto) 12/12/19 12/12/19 12/12/19 09:38 12:18 17:44 WBC RBC Hgb Hct MCHC RDW Lymph % (Auto) [place] % (Auto) [place] # Eos # [place] # (Auto) Eos # (Auto) Seg Neutrophils % Seg Neuts % (Manual) Baso # (Auto) Lymphocytes % (Manual) Monocytes % (Manual) Eosinophils % (Manual) Basophils % (Manual) Seg Neutrophils # Seg Neutrophils # Man Lymphocytes # (Manual) Monocytes # (Manual) Eosinophils # (Manual) Basophils # (Manual) Heparin Anti-Xa Level ABG pH POC ABG pO2 ABG pO2 ABG HCO3 ABG O2 Saturation ABG Base Excess ABG Hemoglobin ABG Oxyhemoglobin Oxyhemoglobin Sodium Potassium Chloride Carbon Dioxide BUN Creatinine Glucose POC Glucose 115 H 146 H 146 H Lactic Acid Calcium Phosphorus Magnesium AST ALT Lactate Dehydrogenase CK-MB (CK-2) C-Reactive Protein NT-Pro-B Natriuret Pep Total Protein Albumin Urine WBC (Auto) 12/12/19 12/13/19 12/13/19 23:33 05:32 05:32 WBC 13.1 H RBC 3.27 L Hgb 9.5 L Hct 29.3 L MCHC RDW 15.6 H Lymph % (Auto) [place] % (Auto) [place] # Eos # [place] # (Auto) Eos # (Auto) Seg Neutrophils % Seg Neuts % (Manual) 74.0 H Baso # (Auto) Lymphocytes % (Manual) 8.0 L Monocytes % (Manual) 9.0 H Eosinophils % (Manual) 5.0 H Basophils % (Manual) Seg Neutrophils # Seg Neutrophils # Man 9.7 H Lymphocytes # (Manual) 1.0 L Monocytes # (Manual) 1.2 H Eosinophils # (Manual) 0.7 H Basophils # (Manual) Heparin Anti-Xa Level 0.20 L ABG pH POC ABG pO2 ABG pO2 ABG HCO3 ABG O2 Saturation ABG Base Excess ABG Hemoglobin ABG Oxyhemoglobin Oxyhemoglobin Sodium Potassium Chloride Carbon Dioxide BUN Creatinine Glucose POC Glucose 126 H Lactic Acid Calcium Phosphorus Magnesium AST ALT Lactate Dehydrogenase CK-MB (CK-2) C-Reactive Protein NT-Pro-B Natriuret Pep Total Protein Albumin Urine WBC (Auto) 12/13/19 12/13/19 12/13/19 05:32 05:46 11:57 WBC RBC Hgb Hct MCHC RDW Lymph % (Auto) [place] % (Auto) [place] # Eos # [place] # (Auto) Eos # (Auto) Seg Neutrophils % Seg Neuts % (Manual) Baso # (Auto) Lymphocytes % (Manual) Monocytes % (Manual) Eosinophils % (Manual) Basophils % (Manual) Seg Neutrophils # Seg Neutrophils # Man Lymphocytes # (Manual) Monocytes # (Manual) Eosinophils # (Manual) Basophils # (Manual) Heparin Anti-Xa Level ABG pH POC ABG pO2 ABG pO2 ABG HCO3 ABG O2 Saturation ABG Base Excess ABG Hemoglobin ABG Oxyhemoglobin Oxyhemoglobin Sodium Potassium Chloride Carbon Dioxide 31 H BUN Creatinine 0.6 L Glucose 114 H POC Glucose 118 H 133 H Lactic Acid Calcium Phosphorus Magnesium AST ALT Lactate Dehydrogenase CK-MB (CK-2) C-Reactive Protein NT-Pro-B Natriuret Pep Total Protein Albumin Urine WBC (Auto) 12/13/19 12/13/19 12/14/19 17:44 23:46 05:32 WBC RBC Hgb Hct MCHC RDW Lymph % (Auto) [place] % (Auto) [place] # Eos # [place] # (Auto) Eos # (Auto) Seg Neutrophils % Seg Neuts % (Manual) Baso # (Auto) Lymphocytes % (Manual) Monocytes % (Manual) Eosinophils % (Manual) Basophils % (Manual) Seg Neutrophils # Seg Neutrophils # Man Lymphocytes # (Manual) Monocytes # (Manual) Eosinophils # (Manual) Basophils # (Manual) Heparin Anti-Xa Level ABG pH POC ABG pO2 ABG pO2 ABG HCO3 ABG O2 Saturation ABG Base Excess ABG Hemoglobin ABG Oxyhemoglobin Oxyhemoglobin Sodium Potassium Chloride Carbon Dioxide BUN Creatinine Glucose POC Glucose 161 H 126 H 139 H Lactic Acid Calcium Phosphorus Magnesium AST ALT Lactate Dehydrogenase CK-MB (CK-2) C-Reactive Protein NT-Pro-B Natriuret Pep Total Protein Albumin Urine WBC (Auto) 12/14/19 12/14/19 12/14/19 06:03 06:03 09:37 WBC RBC Hgb 9.6 L Hct 30.4 L MCHC RDW Lymph % (Auto) [place] % (Auto) [place] # Eos # [place] # (Auto) Eos # (Auto) Seg Neutrophils % Seg Neuts % (Manual) Baso # (Auto) Lymphocytes % (Manual) Monocytes % (Manual) Eosinophils % (Manual) Basophils % (Manual) Seg Neutrophils # Seg Neutrophils # Man Lymphocytes # (Manual) Monocytes # (Manual) Eosinophils # (Manual) Basophils # (Manual) Heparin Anti-Xa Level 0.24 L ABG pH POC ABG pO2 ABG pO2 ABG HCO3 ABG O2 Saturation ABG Base Excess ABG Hemoglobin ABG Oxyhemoglobin Oxyhemoglobin Sodium Potassium Chloride Carbon Dioxide BUN Creatinine 0.6 L Glucose 162 H POC Glucose Lactic Acid Calcium Phosphorus Magnesium AST 71 H ALT 118 H Lactate Dehydrogenase CK-MB (CK-2) C-Reactive Protein NT-Pro-B Natriuret Pep Total Protein 6.2 L Albumin 2.3 L Urine WBC (Auto) 12/14/19 12/14/19 12/15/19 12:06 18:18 00:19 WBC RBC Hgb Hct MCHC RDW Lymph % (Auto) [place] % (Auto) [place] # Eos # [place] # (Auto) Eos # (Auto) Seg Neutrophils % Seg Neuts % (Manual) Baso # (Auto) Lymphocytes % (Manual) Monocytes % (Manual) Eosinophils % (Manual) Basophils % (Manual) Seg Neutrophils # Seg Neutrophils # Man Lymphocytes # (Manual) Monocytes # (Manual) Eosinophils # (Manual) Basophils # (Manual) Heparin Anti-Xa Level ABG pH POC ABG pO2 ABG pO2 ABG HCO3 ABG O2 Saturation ABG Base Excess ABG Hemoglobin ABG Oxyhemoglobin Oxyhemoglobin Sodium Potassium Chloride Carbon Dioxide BUN Creatinine Glucose POC Glucose 147 H 166 H 123 H Lactic Acid Calcium Phosphorus Magnesium AST ALT Lactate Dehydrogenase CK-MB (CK-2) C-Reactive Protein NT-Pro-B Natriuret Pep Total Protein Albumin Urine WBC (Auto) 12/15/19 12/15/19 12/15/19 05:28 05:29 05:29 WBC 14.9 H RBC 3.19 L Hgb 9.1 L Hct 28.7 L MCHC RDW 16.0 H Lymph % (Auto) [place] % (Auto) [place] # Eos # [place] # (Auto) Eos # (Auto) Seg Neutrophils % Seg Neuts % (Manual) Baso # (Auto) Lymphocytes % (Manual) Monocytes % (Manual) Eosinophils % (Manual) Basophils % (Manual) Seg Neutrophils # Seg Neutrophils # Man Lymphocytes # (Manual) Monocytes # (Manual) Eosinophils # (Manual) Basophils # (Manual) Heparin Anti-Xa Level 0.19 L ABG pH POC ABG pO2 ABG pO2 ABG HCO3 ABG O2 Saturation ABG Base Excess ABG Hemoglobin ABG Oxyhemoglobin Oxyhemoglobin Sodium Potassium Chloride Carbon Dioxide BUN Creatinine 0.6 L Glucose 110 H POC Glucose Lactic Acid Calcium Phosphorus Magnesium AST ALT Lactate Dehydrogenase CK-MB (CK-2) C-Reactive Protein NT-Pro-B Natriuret Pep Total Protein Albumin Urine WBC (Auto) 12/15/19 12/15/19 12/15/19 05:53 11:50 17:26 WBC RBC Hgb Hct MCHC RDW Lymph % (Auto) [place] % (Auto) [place] # Eos # [place] # (Auto) Eos # (Auto) Seg Neutrophils % Seg Neuts % (Manual) Baso # (Auto) Lymphocytes % (Manual) Monocytes % (Manual) Eosinophils % (Manual) Basophils % (Manual) Seg Neutrophils # Seg Neutrophils # Man Lymphocytes # (Manual) Monocytes # (Manual) Eosinophils # (Manual) Basophils # (Manual) Heparin Anti-Xa Level ABG pH POC ABG pO2 ABG pO2 ABG HCO3 ABG O2 Saturation ABG Base Excess ABG Hemoglobin ABG Oxyhemoglobin Oxyhemoglobin Sodium Potassium Chloride Carbon Dioxide BUN Creatinine Glucose POC Glucose 119 H 132 H 128 H Lactic Acid Calcium Phosphorus Magnesium AST ALT Lactate Dehydrogenase CK-MB (CK-2) C-Reactive Protein NT-Pro-B Natriuret Pep Total Protein Albumin Urine WBC (Auto) 12/15/19 12/16/19 12/16/19 23:11 05:30 05:46 WBC RBC Hgb 8.8 L Hct 27.9 L MCHC RDW Lymph % (Auto) [place] % (Auto) [place] # Eos # [place] # (Auto) Eos # (Auto) Seg Neutrophils % Seg Neuts % (Manual) Baso # (Auto) Lymphocytes % (Manual) Monocytes % (Manual) Eosinophils % (Manual) Basophils % (Manual) Seg Neutrophils # Seg Neutrophils # Man Lymphocytes # (Manual) Monocytes # (Manual) Eosinophils # (Manual) Basophils # (Manual) Heparin Anti-Xa Level ABG pH POC ABG pO2 ABG pO2 ABG HCO3 ABG O2 Saturation ABG Base Excess ABG Hemoglobin ABG Oxyhemoglobin Oxyhemoglobin Sodium Potassium Chloride Carbon Dioxide BUN Creatinine Glucose POC Glucose 150 H 134 H Lactic Acid Calcium Phosphorus Magnesium AST ALT Lactate Dehydrogenase CK-MB (CK-2) C-Reactive Protein NT-Pro-B Natriuret Pep Total Protein Albumin Urine WBC (Auto) 12/16/19 12/16/19 12/16/19 05:46 05:46 11:44 WBC RBC Hgb Hct MCHC RDW Lymph % (Auto) [place] % (Auto) [place] # Eos # [place] # (Auto) Eos # (Auto) Seg Neutrophils % Seg Neuts % (Manual) Baso # (Auto) Lymphocytes % (Manual) Monocytes % (Manual) Eosinophils % (Manual) Basophils % (Manual) Seg Neutrophils # Seg Neutrophils # Man Lymphocytes # (Manual) Monocytes # (Manual) Eosinophils # (Manual) Basophils # (Manual) Heparin Anti-Xa Level 0.20 L ABG pH POC ABG pO2 ABG pO2 ABG HCO3 ABG O2 Saturation ABG Base Excess ABG Hemoglobin ABG Oxyhemoglobin Oxyhemoglobin Sodium Potassium Chloride Carbon Dioxide 31 H BUN Creatinine 0.5 L Glucose 147 H POC Glucose 164 H Lactic Acid Calcium Phosphorus Magnesium AST ALT Lactate Dehydrogenase CK-MB (CK-2) C-Reactive Protein NT-Pro-B Natriuret Pep Total Protein Albumin Urine WBC (Auto) 12/16/19 12/16/19 12/17/19 17:17 23:49 05:30 WBC 13.9 H RBC 3.27 L Hgb 9.4 L Hct 29.2 L MCHC RDW 16.0 H Lymph % (Auto) [place] % (Auto) 8.8 H [place] # Eos # [place] # (Auto) 1.2 H Eos # (Auto) 0.5 H Seg Neutrophils % 70.5 H Seg Neuts % (Manual) Baso # (Auto) 0.2 H Lymphocytes % (Manual) Monocytes % (Manual) Eosinophils % (Manual) Basophils % (Manual) Seg Neutrophils # 9.8 H Seg Neutrophils # Man Lymphocytes # (Manual) Monocytes # (Manual) Eosinophils # (Manual) Basophils # (Manual) Heparin Anti-Xa Level ABG pH POC ABG pO2 ABG pO2 ABG HCO3 ABG O2 Saturation ABG Base Excess ABG Hemoglobin ABG Oxyhemoglobin Oxyhemoglobin Sodium Potassium Chloride Carbon Dioxide BUN Creatinine Glucose POC Glucose 162 H 144 H Lactic Acid Calcium Phosphorus Magnesium AST ALT Lactate Dehydrogenase CK-MB (CK-2) C-Reactive Protein NT-Pro-B Natriuret Pep Total Protein Albumin Urine WBC (Auto) 12/17/19 12/17/19 12/17/19 05:30 06:06 11:50 WBC RBC Hgb Hct MCHC RDW Lymph % (Auto) [place] % (Auto) [place] # Eos # [place] # (Auto) Eos # (Auto) Seg Neutrophils % Seg Neuts % (Manual) Baso # (Auto) Lymphocytes % (Manual) Monocytes % (Manual) Eosinophils % (Manual) Basophils % (Manual) Seg Neutrophils # Seg Neutrophils # Man Lymphocytes # (Manual) Monocytes # (Manual) Eosinophils # (Manual) Basophils # (Manual) Heparin Anti-Xa Level ABG pH POC ABG pO2 ABG pO2 ABG HCO3 ABG O2 Saturation ABG Base Excess ABG Hemoglobin ABG Oxyhemoglobin Oxyhemoglobin Sodium Potassium Chloride 97.4 L Carbon Dioxide 32 H BUN Creatinine 0.5 L Glucose 135 H POC Glucose 151 H 140 H Lactic Acid Calcium Phosphorus Magnesium AST ALT Lactate Dehydrogenase CK-MB (CK-2) C-Reactive Protein NT-Pro-B Natriuret Pep Total Protein Albumin Urine WBC (Auto) 12/17/19 12/17/19 12/18/19 17:50 23:46 05:17 WBC RBC Hgb 8.8 L Hct 28.0 L MCHC RDW Lymph % (Auto) [place] % (Auto) [place] # Eos # [place] # (Auto) Eos # (Auto) Seg Neutrophils % Seg Neuts % (Manual) Baso # (Auto) Lymphocytes % (Manual) Monocytes % (Manual) Eosinophils % (Manual) Basophils % (Manual) Seg Neutrophils # Seg Neutrophils # Man Lymphocytes # (Manual) Monocytes # (Manual) Eosinophils # (Manual) Basophils # (Manual) Heparin Anti-Xa Level ABG pH POC ABG pO2 ABG pO2 ABG HCO3 ABG O2 Saturation ABG Base Excess ABG Hemoglobin ABG Oxyhemoglobin Oxyhemoglobin Sodium Potassium Chloride Carbon Dioxide BUN Creatinine Glucose POC Glucose 158 H 150 H Lactic Acid Calcium Phosphorus Magnesium AST ALT Lactate Dehydrogenase CK-MB (CK-2) C-Reactive Protein NT-Pro-B Natriuret Pep Total Protein Albumin Urine WBC (Auto) 12/18/19 12/18/19 12/18/19 05:17 05:49 11:12 WBC RBC Hgb Hct MCHC RDW Lymph % (Auto) [place] % (Auto) [place] # Eos # [place] # (Auto) Eos # (Auto) Seg Neutrophils % Seg Neuts % (Manual) Baso # (Auto) Lymphocytes % (Manual) Monocytes % (Manual) Eosinophils % (Manual) Basophils % (Manual) Seg Neutrophils # Seg Neutrophils # Man Lymphocytes # (Manual) Monocytes # (Manual) Eosinophils # (Manual) Basophils # (Manual) Heparin Anti-Xa Level 0.16 L ABG pH POC ABG pO2 ABG pO2 ABG HCO3 ABG O2 Saturation ABG Base Excess ABG Hemoglobin ABG Oxyhemoglobin Oxyhemoglobin Sodium Potassium Chloride Carbon Dioxide BUN Creatinine Glucose POC Glucose 127 H 191 H Lactic Acid Calcium Phosphorus Magnesium AST ALT Lactate Dehydrogenase CK-MB (CK-2) C-Reactive Protein NT-Pro-B Natriuret Pep Total Protein Albumin Urine WBC (Auto) Chest x-ray: image reviewed (right pleural effusion) Allied health notes reviewed: nursing
[2019-12-18] MEDS: HEPARIN/ 0.45% NACL DRIP 25,000 UNIT/500 ML BAG IV SCH (12:53)
[2019-12-18] MEDS: TAMSULOSIN 0.4 MG CAP PO SCH (14:07)
[2019-12-18] MEDS: QUEtiapine 100 MG TAB PO SCH (21:16)
[2019-12-18] MEDS: POLYETHYLENE GLYCOL 3350 17 GM POWDER PO SCH (21:18)
[2019-12-19] MEDS: INSULIN LISPRO 100 UNIT/ML VIAL 3 mL SUB-Q SCH ×4 (01:00→19:10)
[2019-12-19] MEDS: METOPROLOL TARTRATE 50 MG TAB PO SCH ×3 (05:33→21:41)
[2019-12-19] MEDS: HEPARIN/ 0.45% NACL DRIP 25,000 UNIT/500 ML BAG IV SCH ×2 (07:06→21:39)
[2019-12-19 09:33] LABS: ABG Base Excess 8.3 mmol/L (-2.0-3.0); ABG HCO3 33.2 mmol/L (20.0-26.0); ABG Methemoglobin 0.4 % (0.0-1.5); ABG Oxygen Saturation 93.8 % (95.0-99.0); ABG PCO2 48.7 mm Hg; ABG PH 7.451 pH Units (7.350-7.450); ABG PO2 62.6 mm Hg (80.0-90.0)
[2019-12-19] MEDS: DOCUSATE SODIUM 100 MG/10 ML ORAL LIQD FEEDTUBE SCH ×2 (10:39→21:22)
[2019-12-19] MEDS: QUEtiapine 25 MG TAB PO SCH (10:40)
[2019-12-19] MEDS: TAMSULOSIN 0.4 MG CAP PO SCH (10:40)
[2019-12-19] MEDS: AMIODARONE 200 MG TAB PO SCH ×2 (10:40→21:41)
[2019-12-19] MEDS: FAMOTIDINE 20 MG TAB PO SCH ×2 (10:41→21:43)
[2019-12-19 11:54] LABS: Hematocrit 26.8 % (35.5-45.6); Mean Corpuscular HGB Conc 34 % (32-34); Mean Corpuscular Volume 87 fl (84-94); Platelet Count 317 K/mm3 (140-440); Red Blood Count 3.08 M/mm3 (3.65-5.03); Red Cell Distribution Width 15.9 % (13.2-15.2)
--- NOTE | 2019-12-19 11:56 | Progress Note ---
Subjective Date of service: 12/19/19 Principal diagnosis: Ac hypoxemic resp failure; Pneumonia; PUI COVID-19; CHF; COPD; HTN Interval history: Assessment and Plan Transient Afib after CPAP trial currently in sinus rhythm Ischemic Cardiomyopathy, resolving re-echo this presentation reports an LVEF 40-45%. echo 08/2018: decreased LVEF 20-25%. Hx of CAD [facility] 12/2018: mild in-stent restenosis. No significant residual disease. Multifocal pneumonia with intermittent fevers negative COVID-19 test x 2 Respiratory failure Acute PE/DVT on IV heparin Recommendations: Continue amiodarone and metoprolol for suppression of paroxysmal atrial fibrillation. Otherwise, conservative cardiac management. Objective Vital Signs Temp Pulse Pulse Resp Resp BP Pulse Ox 12/19/19 11:01 93 H 14 134/95 97 12/19/19 11:00 89 131/85 98 12/19/19 10:31 85 14 146/104 99 12/19/19 10:00 85 12 131/85 97 12/19/19 09:30 87 16 146/104 98 12/19/19 09:01 97 H 16 146/104 12/19/19 08:31 83 14 133/97 94 12/19/19 08:00 98.2 F 85 81 15 16 133/97 96 12/19/19 07:31 112 H 23 127/92 90 12/19/19 07:30 116 H 127/92 98 12/19/19 07:00 94 H 19 127/92 95 12/19/19 06:31 84 14 120/75 96 12/19/19 06:00 73 13 120/75 92 12/19/19 05:33 80 117/79 12/19/19 05:31 77 13 117/79 96 12/19/19 05:00 82 13 117/79 12/19/19 04:31 87 16 110/73 98 12/19/19 04:00 77 81 9 L 14 110/73 99 12/19/19 03:31 82 14 118/77 98 12/19/19 03:29 99.3 F 12/19/19 03:00 81 12 118/77 12/19/19 02:31 84 18 110/77 98 12/19/19 02:00 85 17 110/77 95 12/19/19 01:31 85 16 116/78 98 12/19/19 01:00 82 16 116/78 96 12/19/19 00:31 81 14 118/74 97 12/19/19 00:00 90 83 12 14 118/74 99 12/18/19 23:56 81 113/76 98 12/18/19 23:31 82 14 113/76 98 12/18/19 23:15 98.3 F 12/18/19 23:01 80 14 113/76 97 12/18/19 22:31 82 14 124/72 96 12/18/19 22:00 76 15 124/72 93 12/18/19 21:31 84 14 133/81 96 12/18/19 21:17 87 133/81 12/18/19 21:00 83 16 131/81 93 12/18/19 20:31 91 H 15 139/83 95 12/18/19 20:00 90 87 15 14 139/83 95 12/18/19 19:48 87 132/78 97 12/18/19 19:31 102 H 14 132/78 100 12/18/19 19:25 98.8 F 12/18/19 19:00 84 14 132/78 95 12/18/19 18:31 83 12 122/80 99 12/18/19 18:00 85 13 122/80 95 12/18/19 17:31 84 16 126/84 98 12/18/19 17:00 82 13 126/84 97 12/18/19 16:31 87 14 139/94 96 12/18/19 16:00 98.5 F 90 97 H 13 14 139/94 97 12/18/19 15:31 102 H 19 135/94 100 12/18/19 15:27 103 H 135/94 97 12/18/19 15:01 87 14 135/94 94 12/18/19 14:31 16 125/77 96 12/18/19 14:11 96 H 125/77 12/18/19 14:01 16 125/77 92 12/18/19 13:31 82 17 144/93 98 12/18/19 13:00 89 17 144/93 93 12/18/19 12:31 107 H 17 136/90 96 12/18/19 12:00 100.0 F H 86 97 H 16 14 136/90 91 - Physical Examination General: Other (intubated on the vent) HEENT: Positive: PERRL Neck: Positive: neck supple Cardiac: Positive: Reg Rate and Rhythm, S1/S2 Lungs: Positive: clear to auscultation Neuro: Positive: Other (Intubated and sedated, on the vent) Abdomen: Positive: Soft Skin: Positive: Clear Extremities: Absent: edema - Labs and Meds Cardiac Enzymes 12/19/19 Range/Units 04:45 Lactate Dehydrogenase 228 H (91-180) units/L - Allied health notes Allied health notes reviewed: nursing
[2019-12-19 12:05] LABS: INR 1.06 (0.87-1.13)
[2019-12-19 12:11] LABS: Alanine Aminotransferase 40 units/L (7-56); Albumin 2.4 g/dL (3.9-5); BUN/Creatinine Ratio 37; Blood Urea Nitrogen 22 mg/dL (9-20); Calcium 9.5 mg/dL (8.4-10.2); Hemolysis Index 1
[2019-12-19] MEDS: fentaNYL DRIP Premix 2,000 MCG/100 ML BAG IV SCH ×2 (12:34→21:50)
--- NOTE | 2019-12-19 13:49 | Progress Note ---
Assessment and Plan Assessment and plan: Acute LLL PE -Acute RLE DVT -Persistent fevers; secondary to sepsis and acute PE/DVT -Severe sepsis; secondary to bilateral pneumonia, persistent fevers -Acute hypoxemic respiratory failure, on vent unable to wean -Bilateral pneumonia, community acquired, -Aspiration Pneumonia -Sustained SVT, on amiodarone -Acute on chronic systolic congestive heart failure -History of cerebrovascular accident. -Tobacco use disorder -Alcohol abuse with DT -Acute chronic obstructive pulmonary disease exacerbation. -Hypertension and hypertensive urgency at presentation. -History of arthritis. -Paroxysmal atrial fibrillation -Leukocytosis with possible sepsis. -Lactic acidosis. -Bleeding from ET tube -Oropharyngeal dysphagia -S/P Knee surgery -History of peptic Ulcer Surgery -DVT prophylaxis COVID-19 test; 11/24/2019; negative 11/26/2019; negative Plan Continue ventilatory support Wean as tolerated as per critical care Completed abx, ID following Aspiration precautions Continue amiodarone and metoprolol for suppression of paroxysmal atrial fibrillation. Anticoagulation currently with intravenous heparin. Plan for thoracentesis May need trach and PEG DVT/GI prophy Heparin/Protonix Plan of care reviewed with the patient's nurse Closely monitor the patient and adjust management as needed The high probability of a clinically significant, sudden or life threatening deterioration of the [Respiratory, cardiovascular & neurological] system(s) required my full and direct attention, intervention and personal management. The aggregate critical care time was [33] minutes without overlap. Time includes spent on [x] Data Review and interpretation [x] Patient assessment and monitoring of vital signs [x] Documentation [x] Medication orders and management Brief History Patient is a 64-year-old male with known history of hypertension, COPD, history of coronary artery disease, CHF with ejection fraction of 20 to 25% in August 2018 presenting to the emergency room via EMS complaining of shortness of breath. Patient was found to be hypoxic and in respiratory distress. Patient was placed on CPAP in route to the hospital. Oxygen saturation was said to be 88%. Started on Solu-Medrol, Lasix and magnesium in ED, patient was also found to be lethargic with an oxygen saturation of about 91% on CPAP. He was subsequently intubated. Work-up in the emergency room including chest x-ray reveals bilateral pneumonia. He had an elevated white count of 14 and also had an elevated BNP. Patient to be admitted to the ICU and placed on empiric IV antibiotics for pneumonia. He will also be tested positive for COVID-19 and placed on isolation precautions. Rmains intubated on ventilatory support, sputum cultures positive for Pseudomonas, ID changed antibiotics to cefepime and Vanco. 11/25: Leukocytosis improving. Continue current management anticipate extubation possible today. 11/26. Still intubated. Failed SBT yesterday. Repeat COVID-19 test is negative. 11/27. CT head ordered for possible neuro status change is negative. More responsive as the day progressed as per RN. Chest xray today shows interval improvement. He is still on antibiotics - will complete regimen today. 11/28: Considering difficult extubation and severe cardiomyopathy, will obtain cardiology consult. Aspiration precautions, tube feeds held, continue antibiotics. 11/29: Still with intermittent fever but improving imaging, continue diuresis. 11/30; Extremely agitated when placed on PSV- SVT, hypertension. Patiet acknowledged that he drinks. IV Ativan given, CIWA protocol initiated. 12 lead ordered showed SVT, one dose of amiodarone ordered. continue to follow up cardiology recommendation 12/01: Patient remains on mechanical ventilation, getting SBT trial. Remains in SVT, started on amiodarone drip by cardiology. 12/02; patient is on mechanical ventilation and on spontaneous breathing trial. Cardiology started the patient on PO amiodarone. Patient is on cefepime. 12/03: patient is on mechanical ventilation. Cardiology started the patient on PO amiodarone for SVT. Patient is on cefepime, no fever overnight. 12/04: Patient is sedated and on mechanical ventilation. Patient had fever yesterday afternoon 102.3, ID changed his cefepime to meropenem. Heart rate is controlled, cardiology is following. Patient has paroxysmal atrial fibrillation and on amiodarone and metoprolol, subcu heparin for anticoagulation and will need oral anticoagulation once stable. 12/05: Sputum cultures positive for Pseudomonas, ID following 12/06; patient is febrile T-max 24 hours 102 F ,ID change antibiotics to cefepime and Vancomycin 12/07: resumed care. Na 149 today, start on 1/2 NS. cont current care 12/08: remains in a stable sinus rhythm and stable blood pressure, continue supportive care. wean off vent as tolerated. persistent fever - ordered CTA chest 9/17: noted bloody discharges from ET tube last night. CTA and LE venous doppler positive for acute PE and DVT. resume heparin drip, consult vascular for possible EKOS/ IVC filter. monitor h/h. cont SBT trial, wean off vent as tolerated. called but no answer 12/10: cont heparin drip for acute PE and DVT, follow vascular recommendation. monitor h/h, wean off vent as tolerated 12/11: o/n had bleeding from ET tube, cont to monitor h/h. vascular recommending medical Mx. called ; Nicolle Araiza [phone]. 12/12: H&H remained stable, patient on heparin drip. Discussed with yesterday. Discussed with critical care attending. Patient not tolerating SBT trial. Continue to wean off from vent as tolerated, follow clinically. Tolerating tube feeding 12/13: Continue heparin drip, wean off from vent as tolerated. Discussed with pulmonary attending if no improvement by the end of 3 weeks of intubation patient may need trach and PEG. Continue to provide supportive care, follow CBC and BMP. 12/14: Stop cefepime today, wean off from vent as tolerated. cont Heparin in fusion, while monitoring for bleeding 12/15: Patient is not tolerating SBT trial, becoming apnic on CPAP. May need to place on trach and PEG. Continue heparin drip, monitor off antibiotics 12/16. Still maintained on vent. May need PEG and trach as her has been failed SBTs 12/17. Had low UO overnight. Started on tamsulosin. May need PEG and trach - defer to pulm. 12/18. Plan for US thoracentesis to help with weaning. Remains on heparin drip for VTE. History Interval history: No change in medical condition. Still remains intubated. COVID-19 test negative. May need trach and PEG Hospitalist Physical - Constitutional Vitals: Temp Pulse Resp BP Pulse Ox 98.2 F 81 16 135/81 96 12/19/19 08:00 12/19/19 13:12/19/19 12:00 12/19/19 13:12/19/19 12:00 General appearance: Present: well-nourished, other (Intubated. OG tube in place) - EENT Eyes: Present: PERRL - Respiratory Respiratory: bilateral: diminished - Cardiovascular Heart Sounds: Present: S1 & S2 - Extremities Extremities: No edema - Abdominal General gastrointestinal: soft, non-tender, non-distended, normal bowel sounds - Neurologic Neurologic: other (Sedated) HEART Score - HEART Score Troponin: Troponin T < 0.010 ng/mL (0.00-0.029) 11/24/19 02:53 Results - Labs CBC & Chem 7: 12/19/19 11:32 12/19/19 11:32 Labs: Laboratory Last Values WBC 14.6 K/mm3 (4.5-11.0) H 12/19/19 11:32 RBC 3.08 M/mm3 (3.65-5.03) L 12/19/19 11:32 Hgb 9.0 gm/dl (11.8-15.2) L 12/19/19 11:32 Hct 26.8 % (35.5-45.6) L 12/19/19 11:32 MCV 87 fl (84-94) 12/19/19 11:32 MCH 29 pg (28-32) 12/19/19 11:32 MCHC 34 % (32-34) 12/19/19 11:32 RDW 15.9 % (13.2-15.2) H 12/19/19 11:32 Plt Count 317 K/mm3 (140-440) 12/19/19 11:32 Lymph % (Auto) 15.4 % (13.4-35.0) 12/17/19 05:30 [place] % (Auto) 8.8 % (0.0-7.3) H 12/17/19 05:30 Eos % (Auto) 3.8 % (0.0-4.3) 12/17/19 05:30 Baso % (Auto) 1.5 % (0.0-1.8) 12/17/19 05:30 Add Manual Diff Complete 12/13/19 05:32 Lymph # (Auto) 2.1 K/mm3 (1.2-5.4) 12/17/19 05:30 [place] # (Auto) 1.2 K/mm3 (0.0-0.8) H 12/17/19 05:30 Total Counted 100 12/13/19 05:32 Eos # (Auto) 0.5 K/mm3 (0.0-0.4) H 12/17/19 05:30 Seg Neuts % (Manual) 74.0 % (40.0-70.0) H 12/13/19 05:32 Baso # (Auto) 0.2 K/mm3 (0.0-0.1) H 12/17/19 05:30 Band Neutrophils % 1.0 % 12/13/19 05:32 Lymphocytes % (Manual) 8.0 % (13.4-35.0) L 12/13/19 05:32 Reactive Lymphs % (Man) 2.0 % 12/13/19 05:32 Monocytes % (Manual) 9.0 % (0.0-7.3) H 12/13/19 05:32 Eosinophils % (Manual) 5.0 % (0.0-4.3) H 12/13/19 05:32 Basophils % (Manual) 1.0 % (0.0-1.8) 12/13/19 05:32 Metamyelocytes % 0 % 12/13/19 05:32 Myelocytes % 0 % 12/13/19 05:32 Promyelocytes % 0 % 12/13/19 05:32 Blast Cells % 0 % 12/13/19 05:32 Nucleated RBC % Not Reportable 12/13/19 05:32 Seg Neutrophils % 70.5 % (40.0-70.0) H 12/17/19 05:30 Seg Neutrophils # Man 9.7 K/mm3 (1.8-7.7) H 12/13/19 05:32 Band Neutrophils # 0.1 K/mm3 12/13/19 05:32 Lymphocytes # (Manual) 1.0 K/mm3 (1.2-5.4) L 12/13/19 05:32 Abs React Lymphs (Man) 0.3 K/mm3 12/13/19 05:32 Monocytes # (Manual) 1.2 K/mm3 (0.0-0.8) H 12/13/19 05:32 Eosinophils # (Manual) 0.7 K/mm3 (0.0-0.4) H 12/13/19 05:32 Basophils # (Manual) 0.1 K/mm3 (0.0-0.1) 12/13/19 05:32 Metamyelocytes # 0.0 K/mm3 12/13/19 05:32 Myelocytes # 0.0 K/mm3 12/13/19 05:32 Promyelocytes # 0.0 K/mm3 12/13/19 05:32 Blast Cells # 0.0 K/mm3 12/13/19 05:32 Seg Neutrophils # 9.8 K/mm3 (1.8-7.7) H 12/17/19 05:30 WBC Morphology Not Reportable 12/13/19 05:32 Hypersegmented Neuts Not Reportable 12/13/19 05:32 Hyposegmented Neuts Not Reportable 12/13/19 05:32 Hypogranular Neuts Not Reportable 12/13/19 05:32 Smudge Cells Not Reportable 12/13/19 05:32 Toxic Granulation Not Reportable 12/13/19 05:32 Toxic Vacuolation Not Reportable 12/13/19 05:32 Dohle Bodies Not Reportable 12/13/19 05:32 Pelger-Huet Anomaly Not Reportable 12/13/19 05:32 Hector Rods Not Reportable 12/13/19 05:32 Platelet Estimate Consistent w auto 12/13/19 05:32 Clumped Platelets Not Reportable 12/13/19 05:32 Plt Clumps, EDTA Not Reportable 12/13/19 05:32 Large Platelets Not Reportable 12/13/19 05:32 Giant Platelets Not Reportable 12/13/19 05:32 Platelet Satelliting Not Reportable 12/13/19 05:32 Plt Morphology Comment Not Reportable 12/13/19 05:32 RBC Morphology Not Reportable 12/13/19 05:32 Dimorphic RBCs Not Reportable 12/13/19 05:32 Polychromasia Not Reportable 12/13/19 05:32 Hypochromasia Not Reportable 12/13/19 05:32 Poikilocytosis Not Reportable 12/13/19 05:32 Anisocytosis 1+ 12/13/19 05:32 Microcytosis Not Reportable 12/13/19 05:32 Macrocytosis Not Reportable 12/13/19 05:32 Spherocytes Not Reportable 12/13/19 05:32 Pappenheimer Bodies Not Reportable 12/13/19 05:32 Sickle Cells Not Reportable 12/13/19 05:32 Target Cells Not Reportable 12/13/19 05:32 Tear Drop Cells Not Reportable 12/13/19 05:32 Ovalocytes Not Reportable 12/13/19 05:32 Helmet Cells Not Reportable 12/13/19 05:32 [place] Bodies Not Reportable 12/13/19 05:32 [place] Rings Not Reportable 12/13/19 05:32 [place] Cells Not Reportable 12/13/19 05:32 Bite Cells Not Reportable 12/13/19 05:32 Crenated Cell Not Reportable 12/13/19 05:32 Elliptocytes Not Reportable 12/13/19 05:32 Acanthocytes (Spur) Not Reportable 12/13/19 05:32 Rouleaux Not Reportable 12/13/19 05:32 Hemoglobin C Crystals Not Reportable 12/13/19 05:32 Schistocytes Not Reportable 12/13/19 05:32 Malaria parasites Not Reportable 12/13/19 05:32 [place] Bodies Not Reportable 12/13/19 05:32 Hem Pathologist Commnt No 12/13/19 05:32 APTT 28.6 Sec. (24.2-36.6) 12/07/19 14:51 PT 13.9 Sec. (12.2-14.9) 12/19/19 11:32 INR 1.06 (0.87-1.13) 12/19/19 11:32 Heparin Anti-Xa Level 0.17 U.I./ml (0.3-0.7) L 12/19/19 04:45 POC ABG pCO2 45.1 mmHg (32.0-48.0) 12/02/19 12:58 POC ABG pO2 78.1 mmHg (83-108) L 12/02/19 12:58 POC ABG HCO3 29.9 12/02/19 12:58 POC ABG Base Excess 5.0 12/02/19 12:58 ABG pH 7.451 pH Units (7.350-7.450) H 12/19/19 09:20 ABG pCO2 48.7 mm Hg 12/19/19 09:20 ABG Oxyhemoglobin 94.7 (94-98) 12/02/19 12:58 ABG pO2 62.6 mm Hg (80.0-90.0) L 12/19/19 09: ABG HCO3 33.2 mmol/L (20.0-26.0) H 12/19/19 09:20 ABG O2 Saturation 93.8 % (95.0-99.0) L 12/19/19 09:20 ABG O2 Content 10.8 (0.0-44) 12/19/19 09:20 ABG Base Excess 8.3 mmol/L (-2.0-3.0) H 12/19/19 09:20 ABG Hemoglobin 8.3 gm/dl (14.0-18.0) L 12/19/19 09:20 ABG Carboxyhemoglobin 1.6 % (0.0-5.0) 12/19/19 09: ABG Methemoglobin 0.4 % (0.0-1.5) 12/19/19 09: Carboxyhemoglobin 1.3 (0.5-1.5) 12/02/19 12:58 Oxyhemoglobin 91.9 % (95.0-99.0) L 12/19/19 09:20 FiO2 50 % 12/19/19 09:20 Sodium 137 mmol/L (137-145) 12/19/19 11:32 Potassium 4.7 mmol/L (3.6-5.0) 12/19/19 11:32 Chloride 95.0 mmol/L (98-107) L 12/19/19 11:32 Carbon Dioxide 33 mmol/L (22-30) H 12/19/19 11:32 Anion Gap 14 mmol/L 12/19/19 11:32 BUN 22 mg/dL (9-20) H 12/19/19 11:32 Creatinine 0.6 mg/dL (0.8-1.3) L 12/19/19 11:32 Estimated GFR > 60 ml/min 12/19/19 11:32 BUN/Creatinine Ratio 37 % 12/19/19 11:32 Glucose 150 mg/dL (75-100) H 12/19/19 11:32 POC Glucose 156 (70-105) H 12/19/19 11:56 Lactic Acid 2.50 mmol/L (0.7-2.0) H* 11/24/19 10:37 Phosphorus 2.60 mg/dL (2.5-4.5) 12/06/19 05:24 Magnesium 2.60 mg/dL (1.7-2.3) H 12/07/19 12:41 Calcium 9.5 mg/dL (8.4-10.2) 12/19/19 11:32 Ferritin 84.4 ng/mL (30.0-300.0) 11/24/19 04:53 Direct Bilirubin < 0.2 mg/dL (0-0.2) 12/08/19 03:55 Indirect Bilirubin 0.2 mg/dL 12/08/19 03:55 Total Bilirubin 0.30 mg/dL (0.1-1.2) 12/19/19 11:32 Total Creatine Kinase 141 units/L (55-170) 11/24/19 02:53 CK-MB (CK-2) 4.3 ng/mL (0.0-4.0) H 11/24/19 02:53 AST 21 units/L (5-40) 12/19/19 11:32 ALT 40 units/L (7-56) 12/19/19 11:32 CK-MB (CK-2) Rel Index 3.0 (0-4) 11/24/19 02:53 Alkaline Phosphatase 68 units/L (35-129) 12/19/19 11:32 Troponin T < 0.010 ng/mL (0.00-0.029) 11/24/19 02:53 C-Reactive Protein 8.50 mg/dL (0.00-1.30) H 12/01/19 12:16 NT-Pro-B Natriuret Pep 286.1 pg/mL (0-900) 11/29/19 15:37 Lactate Dehydrogenase 228 units/L (91-180) H 12/19/19 04:45 Total Protein 6.2 g/dL (6.3-8.2) L 12/19/19 11:32 Albumin 2.4 g/dL (3.9-5) L 12/19/19 11:32 Albumin/Globulin Ratio 0.6 % 12/19/19 11:32 Procalcitonin 0.67 ng/mL (<0.15) 12/07/19 12:41 Urine Color Cecy (Yellow) 12/03/19 06:03 Urine Turbidity Clear (Clear) 12/03/19 06:03 Urine pH 5.0 (5.0-7.0) 12/03/19 06:03 Ur Specific [place] 1.030 (1.003-1.030) 12/03/19 06:03 Urine Protein <15 mg/dl mg/dL (Negative) 12/03/19 06:03 Urine Glucose (UA) Neg mg/dL (Negative) 12/03/19 06:03 Urine Ketones Neg mg/dL (Negative) 12/03/19 06:03 Urine Blood Neg (Negative) 12/03/19 06:03 Urine Nitrite Neg (Negative) 12/03/19 06:03 Urine Bilirubin Neg (Negative) 12/03/19 06:03 Urine Urobilinogen 4.0 mg/dL (<2.0) 12/03/19 06:03 Ur Leukocyte Esterase Neg (Negative) 12/03/19 06:03 Urine WBC (Auto) 8.0 /HPF (0.0-6.0) H 12/03/19 06:03 Urine RBC (Auto) 2.0 /HPF (0.0-6.0) 12/03/19 06:03 Urine Bacteria (Auto) 1+ /HPF (Negative) 12/03/19 06:03 Urine Mucus 1+ /HPF 12/03/19 06:03 Vancomycin Trough 14.2 ug/mL (5.0-20.0) 12/13/19 15:01 Coronavirus (PCR) Negative (Negative) 11/26/19 08:26 - Diagnostic Impressions Diagnostic Impressions: Echocardiogram 11/29/19 07:37 Transthoracic Echocardiogram Indication: CHF BP: 116/72 HR: 33 Conclusions *The study is technically limited due to poor acoustic windows. *Global left ventricular systolic function is normal. *The estimated ejection fraction is 50-55%. *Mild concentric left ventricular hypertrophy is observed. *There is trace of mitral regurgitation. *There is mild tricuspid regurgitation. Findings Procedure Info: The study quality is poor. The study is technically limited due to poor acoustic windows. The study is technically limited due to patient body habitus. Left Ventricle: The left ventricular chamber size is normal. Mild concentric left ventricular hypertrophy is observed. Global left ventricular systolic function is normal. The estimated ejection fraction is 50-55%. Left Atrium: The left atrial chamber size is normal. Right Ventricle: The right ventricular cavity size is normal. Right Atrium: The right atrial cavity size is normal. Aortic Valve: The aortic valve leaflets are moderately thickened. There is trace of aortic regurgitation. There is no evidence of aortic stenosis. Mitral Valve: The mitral valve leaflets are mildly thickened. There is trace of mitral regurgitation. There is no evidence of mitral stenosis. Tricuspid Valve: There is mild tricuspid regurgitation. No pulmonary hypertension is noted. Pulmonic Valve: There is trace pulmonic regurgitation. Pericardium: There is no pericardial effusion. Aorta: There is no dilatation of the aortic root. Venous: The inferior vena cava appears normal in size. Contrast: Definity was used to optimize study. Intravenous contrast was used to enhance endocardial border definition. Measurements Chambers 2D Name Value Normal Range Ao root diameter (2D) 3.4 cm (2 - 3.7) Aortic Valve Name Value Normal Range AV Vmax 0.98 m/sec - AV VTI 16.76 cm - AV peak gradient 3.83 mmHg - AV mean gradient 2.57 mmHg - LVOT diameter 3.11 cm - LVOT Vmax 0.68 m/sec - LVOT VTI 11.52 cm - LVOT peak gradient 1.84 mmHg - LVOT mean gradient 1.27 mmHg - SV LVOT 87.31 ml - MALOU (continuity Vmax) 5.24 cm2 - MALOU (continuity VTI) 5.21 cm2 - Tricuspid Valve Name Value Normal Range IVC diameter 2.24 cm (1.2 - 2.3) [place]/IV: Voiding Method Indwelling Catheter IV Catheter Type [Right Upper INT / Saline Lock arm] IV Catheter Type [Left Upper Mid-line arm] IV Catheter Type [Left Forearm Peripheral IV ] IV Catheter Type [Left Hand] INT / Saline Lock IV Catheter Type [Left Wrist] INT / Saline Lock IV Catheter Type [Right INT / Saline Lock Antecubital] Active Medications - Current Medications Current Medications: Generic Name Dose Route Start Last Admin Trade Name Freq PRN Reason Stop Dose Admin Acetaminophen 650 mg 11/25/19 17:27 12/16/19 00:29 Tylenol FEEDTUBE 650 mg Q6H PRN Administration Pain, Mild (1-3) Amiodarone HCl 200 mg 12/04/19 14:00 12/19/19 10:40 Cordarone PO 200 mg BID CAR Administration Lipase/Protease/Amylase 1 each 12/08/19 12:[address] 10,500 Unit FEEDTUBE PRN PRN For Clogged Feeding Tube Docusate Sodium 100 mg 12/02/19 22:00 12/19/19 10:39 Colace FEEDTUBE 100 mg BID CAR Administration Famotidine 20 mg 11/25/19 10:00 12/19/19 10:41 Pepcid PO 20 mg BID CAR Administration Fentanyl 50 mcg 11/24/19 09:55 Sublimaze IV Q10MIN PRN ANALGESIA Haloperidol Lactate 5 mg 12/01/19 10:23 Haldol IV Q1H PRN Unrespon. to mult. doses BZD's Hydrophilic Ointment 1 applic 11/24/19 02:23 Vaseline Lip Therapy TP Q2HR PRN Dry Lips Fentanyl Citrate 2,000 mcg in 100 mls @ 5.67 mls/hr 11/24/19 10:00 12/19/19 12:34 Fentanyl Drip Premix IV 2 mcg/kg/hr TITR CAR 11.34 mls/hr Administration Protocol 1 MCG/KG/HR Propofol 1,000 mg in 100 mls @ 3.402 mls/hr 11/28/19 17:25 Diprivan 10 Mg/Ml IV TITR CAR Protocol 5 MCG/KG/MIN Heparin Sodium/Sodium Chloride 25,000 unit in 500 mls @ 30 mls/hr 12/10/19 19:00 12/19/19 07:06 Heparin/ 0.45% Nacl-25,000 Unit/500 Ml IV 1,500 units/hr TITR CAR 30 mls/hr Administration Protocol 1,500 UNITS/HR Insulin Human Lispro 0 unit 12/05/19 19:00 12/19/19 12:35 Humalog SUB-Q 1 unit Q6H CAR Administration Protocol Lorazepam 2 mg 12/01/19 10:23 12/17/19 21:43 Ativan IV 2 mg Q1H PRN Administration CIWA-Ar 8-15 Lorazepam 4 mg 12/01/19 10:23 12/16/19 16:29 Ativan IV 4 mg Q1H PRN Administration CIWA-Ar 16-25 Lorazepam 4 mg 12/01/19 10:23 12/18/19 11:14 Ativan IV 4 mg Q15MIN PRN Administration CIWA-Ar >25 Metoprolol Tartrate 50 mg 12/07/19 14:00 12/19/19 13:25 Metoprolol PO 50 mg Q8HR CAR Administration Multi-Ingred Cream/Lotion/Oil/Oint 1 applic 11/24/19 02:23 Artificial Tears Ophth Oint OU Q4HR PRN Dry Eye(s) Ondansetron HCl 4 mg 11/24/19 05:31 12/14/19 20:00 Zofran IV 4 mg Q8H PRN Administration Nausea And Vomiting Polyethylene Glycol 17 gm 12/04/19 22:00 12/18/19 21:18 Miralax 3350 PO 17 gm QHS CAR Administration Quetiapine Fumarate 50 mg 12/07/19 13:00 12/19/19 10:40 Seroquel PO 50 mg DAILY CAR Administration Quetiapine Fumarate 200 mg 12/15/19 22:00 12/18/19 21:16 Seroquel PO 200 mg QHS CAR Administration Simple Syrup 15 ml 12/08/19 12:07 Simple Syrup FEEDTUBE PRN PRN Hypoglycemia Simple Syrup 30 ml 12/08/19 12:07 Simple Syrup FEEDTUBE PRN PRN Hypoglycemia Sodium Bicarbonate 325 mg 12/08/19 12:07 Sodium Bicarbonate FEEDTUBE PRN PRN For Clogged Feeding Tube Sodium Chloride 10 ml 11/24/19 10:00 12/19/19 10:40 Sodium Chloride Flush Syringe 10 Ml IV 10 ml BID CAR Administration Sodium Chloride 10 ml 11/24/19 05:31 Sodium Chloride Flush Syringe 10 Ml IV PRN PRN LINE FLUSH Tamsulosin HCl 0.4 mg 12/18/19 13:00 12/19/19 10:40 Flomax PO 0.4 mg QDAY CAR Administration Nutrition/Malnutrition Assess - Dietary Evaluation Nutrition/Malnutrition Findings: Nutrition Notes Start: 11/24/19 12:22 Freq: Status: Active Protocol: Document 12/18/19 13:21 [email or web address] (Rec: 12/18/19 13:50 [email or web address]) Co-Sign 12/18/19 13:21 LP Nutrition Notes Initial or Follow up Reassessment Current Diagnosis Coronary Artery Disease,Heart Failure,Respiratory Failure, Stroke,Hyperlipidemia Current Diet TF Vital HP 65ml/hr Labs/Tests Reviewed Pertinent Medications Humalog Height 6 ft 2 in Weight 119.9 kg [place] Body Weight (kg) 86.36 BMI 33.9 Weight change and time frame Wt change noted Weight Status Obese Subjective/Other Information F/U for stable TF. TF running at 65ml/hr. Unable to reach RN x2. Percent of energy/protein needs met: 100%/65% Burn Absent Trauma Absent Current % PO Negligible Minimum of two criteria No physical signs of malnutrition Fluid Accumulation Mild (non-severe) #1 Nutrition Diagnosis Inadequate oral intake Diagnosis Progress(for reassessment Continues documentation) Is patient on ventilator? Yes Is Patient Ambulatory and/or Out of Bed No REE-([place]-St. Jeor-confined to bed) 2481.108 Kcal/Kg value to use for calculation 13 Approximate Energy Requirements Using 1559 kcal/Kg Calculation Used for Recommendations Kcal/kg Additional Notes Protein needs 173g (greater than 2g/kg IBW) Fluid needs 1.5-1.9L Nutrition Intervention Change Diet Order: Continue TF Nutrition Support: Vital HP at 65ml/hr Flush 100ml q4h Hypernatermia 250ml q4h Kcal 1,560 Protein (gm) 114 Fluid (mL) 1,304 Goal #1 TF meets at least 80% of energy and protein needs. Goal #2 TF tolerance Anticipated Discharge Needs: unable to determine at this time Follow-Up By: 12/22/19 Additional Comments F/u for stable TF
[2019-12-19 14:42] LABS: Anisocytosis 1+; Basophils % (Manual) 0 % (0.0-1.8); Hypochromasia Few; Macrocytosis Few; Platelet Estimate Consistent w Auto; Total Cells Counted 100
--- NOTE | 2019-12-19 16:56 | Progress Note ---
Assessment and Plan Acute hypoxemic respiratory failure Bilateral pneumonia, community acquired. Acute LLL branch P.E. Acute DVT Person under investigation for COVID-19 infection. Acute congestive heart failure exacerbation. History of cerebrovascular accident. Acute chronic obstructive pulmonary disease exacerbation. Hypertension and hypertensive urgency at presentation. History of arthritis. Leukocytosis. Lactic acidosis. Oropharyngeal dysphagia - continue therapeutic anticoagulation with IV heprin (hold for procedures) - tentatively to get US thoracentesis for R. Pleural Effusion - bronchoscopy if no re-expansion post thoracentesis - Surgery evaluation ongoing for tracheostomy - follow BAL studies (none in chart yet) - continue daily SAT's and SBT assessment as tolerated - continue care as below otherwise; - continue low dose seroquel - COVID isolation per facility protocol - free water for hypernatremia - continue diuresis while following electrolytes / I's & O's - continue to wean oxygen for O2 sat's > 92% - continue bronchodilators with pulmonary hygiene per RT - VAP bundle addressed (Aspiration precautions, HOB >40) - continue to wean per pulmonary driven protocols - sedation target is RASS 0 to -1 - continue prn analgesia per CPOT score - follow clinically re: fever curves / trend WBC - Avoid delirium (no benzodiazepines if they can be avoided) - Maintain sleep-wake cycle - enteral nutrition at goal rate as tolerated - continue accucheck's with glycemic control per SSI for target blood glucose goal of 140-180 mg/dL while critically ill; Avoid hypoglycemia - for VTE he is on IV Heparin - continue stress ulcer prophylaxis with Famotidine - continue mobility protocols for pressure ulcer prophylaxis - continue fall precautions - continue wound care management per RN / WCT - Supportive transfusions to keep HgB>7g/dL - CXR's and ABG's prn - Continue to monitor neurologic function - Continue chronic home medications - Continue all supportive care ........ re-evaluate in am & prn CONDITION: CRITICAL PROGNOSIS: GUARDED CODE STATUS: FULL CODE The high probability of a clinically significant, sudden or life threatening deterioration of the [Respiratory, cardiovascular & neurological] system(s) required my full and direct attention, intervention and personal management. The aggregate critical care time was [36] minutes without overlap. Time includes spent on [x] Data Review and interpretation [x] Patient assessment and monitoring of vital signs [x] Documentation [x] Medication orders and management Subjective Date of service: 12/19/19 Principal diagnosis: Ac hypoxemic resp failure; Pneumonia; PUI COVID-19; CHF; COPD; HTN Interval history: Patient is seen today for: Acute hypoxemic respiratory failure; [place]. Pneumonia (CAP); PUI COVID-19 infection; AE-CHF; AE-COPD; H/O CVA; HTN Seen and examined at bedside; 24 hour events reviewed; nursing and respiratory care staff consulted; no adverse overnight events reported to me; resting peac efully in bed; weaning tenuously; AMS is persistent; awaiting tracheostomy; No emesis or overt aspiration Objective Vital Signs - 12hr 12/19/19 12/19/19 12/19/19 05:00 05:31 05:33 Temperature Pulse Rate 82 77 80 Pulse Rate [ From Monitor] Respiratory 13 13 Rate Respiratory Rate [Chest] Blood Pressure 117/79 117/79 117/79 O2 Sat by Pulse 96 Oximetry 12/19/19 12/19/19 12/19/19 06:00 06:31 07:00 Temperature Pulse Rate 73 84 94 H Pulse Rate [ From Monitor] Respiratory 13 14 19 Rate Respiratory Rate [Chest] Blood Pressure 120/75 120/75 127/92 O2 Sat by Pulse 92 96 95 Oximetry 12/19/19 12/19/19 12/19/19 07:30 07:31 08:00 Temperature 98.2 F Pulse Rate 116 H 112 H 85 Pulse Rate [ 81 From Monitor] Respiratory 23 15 Rate Respiratory 16 Rate [Chest] Blood Pressure 127/92 127/92 133/97 O2 Sat by Pulse 98 90 96 Oximetry 12/19/19 12/19/19 12/19/19 08:31 09:01 09:30 Temperature Pulse Rate 83 97 H 87 Pulse Rate [ From Monitor] Respiratory 14 16 16 Rate Respiratory Rate [Chest] Blood Pressure 133/97 146/104 146/104 O2 Sat by Pulse 94 98 Oximetry 12/19/19 12/19/19 12/19/19 10:00 10:31 11:00 Temperature Pulse Rate 85 85 89 Pulse Rate [ From Monitor] Respiratory 12 14 Rate Respiratory Rate [Chest] Blood Pressure 131/85 146/104 131/85 O2 Sat by Pulse 97 99 98 Oximetry 12/19/19 12/19/19 12/19/19 11:01 11:31 12:00 Temperature 98.6 F Pulse Rate 93 H 82 82 Pulse Rate [ 82 From Monitor] Respiratory 14 17 15 Rate Respiratory 16 Rate [Chest] Blood Pressure 134/95 134/95 118/78 O2 Sat by Pulse 97 96 98 Oximetry 12/19/19 12/19/19 12/19/19 12:31 13:00 13:25 Temperature Pulse Rate 89 79 81 Pulse Rate [ From Monitor] Respiratory 16 13 Rate Respiratory Rate [Chest] Blood Pressure 118/78 135/81 135/81 O2 Sat by Pulse 99 96 Oximetry 12/19/19 12/19/19 13:31 15:25 Temperature Pulse Rate 83 84 Pulse Rate [ From Monitor] Respiratory 14 Rate Respiratory Rate [Chest] Blood Pressure 135/81 136/93 O2 Sat by Pulse 97 99 Oximetry Constitutional: agitated, appears uncomfortable, other (elderly and obese male, normocephalic with mildly increased respiratory effort at rest on MVS) Eyes: non-icteric ENT: oropharynx moist, other (ETT 24 cm JASON) Neck: supple, no JVD Effort: very labored Ascultation: Bilateral: diminished breath sounds (bases R>L), rhonchi Percussion: Bilateral: not dull Cardiovascular: irregular rhythm Gastrointestinal: normoactive bowel sounds, soft, non-tender, non-distended Integumentary: normal Extremities: no cyanosis, no edema, pulses normal, no ischemia or petechiae Neurologic: non-focal exam (moves all extremities with extreme agitation), pupils equal and round, motor strength normal and, other (sedated lightly) Psychiatric: other (unable to assesds re: AMS) CBC and BMP: 12/19/19 11:32 12/19/19 11:32 ABG, PT/INR, D-dimer: ABG POC ABG pCO2 45.1 mmHg (32.0-48.0) 12/02/19 12:58 POC ABG pO2 78.1 mmHg (83-108) L 12/02/19 12:58 POC ABG HCO3 29.9 12/02/19 12:58 ABG pH 7.451 pH Units (7.350-7.450) H 12/19/19 09:20 ABG pCO2 48.7 mm Hg 12/19/19 09:20 ABG pO2 62.6 mm Hg (80.0-90.0) L 12/19/19 09:20 ABG O2 Saturation 93.8 % (95.0-99.0) L 12/19/19 09:20 PT/INR, D-dimer PT 13.9 Sec. (12.2-14.9) 12/19/19 11:32 INR 1.06 (0.87-1.13) 12/19/19 11:32 Abnormal lab findings: Abnormal Labs 11/24/19 11/24/19 11/24/19 02:53 02:53 03:45 WBC 14.3 H RBC Hgb Hct MCHC RDW 17.2 H Lymph % (Auto) [place] % (Auto) [place] # Eos # [place] # (Auto) Eos # (Auto) Seg Neutrophils % Seg Neuts % (Manual) Baso # (Auto) Lymphocytes % (Manual) Monocytes % (Manual) Eosinophils % (Manual) Basophils % (Manual) Seg Neutrophils # Seg Neutrophils # Man 8.3 H Lymphocytes # (Manual) Monocytes # (Manual) 0.9 H Eosinophils # (Manual) Nucleated RBC % Basophils # (Manual) Heparin Anti-Xa Level ABG pH 7.313 L POC ABG pO2 ABG pO2 102.8 H ABG HCO3 ABG O2 Saturation ABG Base Excess -2.9 L ABG Hemoglobin ABG Oxyhemoglobin Oxyhemoglobin 93.9 L Sodium Potassium Chloride Carbon Dioxide BUN Creatinine Glucose 195 H POC Glucose Lactic Acid Calcium Phosphorus Magnesium AST ALT Lactate Dehydrogenase CK-MB (CK-2) 4.3 H C-Reactive Protein NT-Pro-B Natriuret Pep 1181 H Total Protein Albumin Urine WBC (Auto) 11/24/19 11/24/19 11/24/19 04:53 04:53 10:37 WBC RBC Hgb Hct MCHC RDW Lymph % (Auto) [place] % (Auto) [place] # Eos # [place] # (Auto) Eos # (Auto) Seg Neutrophils % Seg Neuts % (Manual) Baso # (Auto) Lymphocytes % (Manual) Monocytes % (Manual) Eosinophils % (Manual) Basophils % (Manual) Seg Neutrophils # Seg Neutrophils # Man Lymphocytes # (Manual) Monocytes # (Manual) Eosinophils # (Manual) Nucleated RBC % Basophils # (Manual) Heparin Anti-Xa Level ABG pH POC ABG pO2 ABG pO2 ABG HCO3 ABG O2 Saturation ABG Base Excess ABG Hemoglobin ABG Oxyhemoglobin Oxyhemoglobin Sodium Potassium Chloride Carbon Dioxide BUN Creatinine Glucose 162 H POC Glucose Lactic Acid 2.40 H* 2.50 H* Calcium Phosphorus Magnesium AST ALT Lactate Dehydrogenase 240 H CK-MB (CK-2) C-Reactive Protein NT-Pro-B Natriuret Pep Total Protein Albumin Urine WBC (Auto) 11/24/19 11/24/19 11/24/19 12:21 14:50 19:54 WBC RBC Hgb Hct MCHC RDW Lymph % (Auto) [place] % (Auto) [place] # Eos # [place] # (Auto) Eos # (Auto) Seg Neutrophils % Seg Neuts % (Manual) Baso # (Auto) Lymphocytes % (Manual) Monocytes % (Manual) Eosinophils % (Manual) Basophils % (Manual) Seg Neutrophils # Seg Neutrophils # Man Lymphocytes # (Manual) Monocytes # (Manual) Eosinophils # (Manual) Nucleated RBC % Basophils # (Manual) Heparin Anti-Xa Level ABG pH POC ABG pO2 ABG pO2 ABG HCO3 ABG O2 Saturation ABG Base Excess ABG Hemoglobin ABG Oxyhemoglobin Oxyhemoglobin Sodium Potassium Chloride Carbon Dioxide BUN Creatinine Glucose POC Glucose 145 H 143 H 124 H Lactic Acid Calcium Phosphorus Magnesium AST ALT Lactate Dehydrogenase CK-MB (CK-2) C-Reactive Protein NT-Pro-B Natriuret Pep Total Protein Albumin Urine WBC (Auto) 11/25/19 11/25/19 11/25/19 00:18 03:18 05:11 WBC 13.7 H RBC Hgb Hct MCHC RDW 17.1 H Lymph % (Auto) 10.8 L [place] % (Auto) 8.7 H [place] # 1.2 H Eos # [place] # (Auto) Eos # (Auto) Seg Neutrophils % 80.2 H Seg Neuts % (Manual) Baso # (Auto) Lymphocytes % (Manual) Monocytes % (Manual) Eosinophils % (Manual) Basophils % (Manual) Seg Neutrophils # 11.0 H Seg Neutrophils # Man Lymphocytes # (Manual) Monocytes # (Manual) Eosinophils # (Manual) Nucleated RBC % Basophils # (Manual) Heparin Anti-Xa Level ABG pH 7.333 L POC ABG pO2 ABG pO2 61.2 L ABG HCO3 ABG O2 Saturation 90.2 L ABG Base Excess ABG Hemoglobin 13.7 L ABG Oxyhemoglobin Oxyhemoglobin 88.2 L Sodium Potassium Chloride Carbon Dioxide BUN Creatinine Glucose POC Glucose 109 H Lactic Acid Calcium Phosphorus Magnesium AST ALT Lactate Dehydrogenase CK-MB (CK-2) C-Reactive Protein NT-Pro-B Natriuret Pep Total Protein Albumin Urine WBC (Auto) 11/25/19 11/25/19 11/26/19 05:11 11:40 03:12 WBC RBC Hgb Hct MCHC RDW Lymph % (Auto) [place] % (Auto) [place] # Eos # [place] # (Auto) Eos # (Auto) Seg Neutrophils % Seg Neuts % (Manual) Baso # (Auto) Lymphocytes % (Manual) Monocytes % (Manual) Eosinophils % (Manual) Basophils % (Manual) Seg Neutrophils # Seg Neutrophils # Man Lymphocytes # (Manual) Monocytes # (Manual) Eosinophils # (Manual) Nucleated RBC % Basophils # (Manual) Heparin Anti-Xa Level ABG pH POC ABG pO2 ABG pO2 155.1 H ABG HCO3 27.8 H ABG O2 Saturation ABG Base Excess ABG Hemoglobin 12.2 L ABG Oxyhemoglobin Oxyhemoglobin Sodium Potassium Chloride Carbon Dioxide BUN 23 H Creatinine Glucose 110 H POC Glucose 108 H Lactic Acid Calcium Phosphorus Magnesium AST ALT Lactate Dehydrogenase CK-MB (CK-2) C-Reactive Protein NT-Pro-B Natriuret Pep Total Protein Albumin Urine WBC (Auto) 11/26/19 11/26/19 11/26/19 06:17 10:43 10:43 WBC 11.4 H RBC Hgb Hct MCHC RDW 17.1 H Lymph % (Auto) [place] % (Auto) [place] # Eos # [place] # (Auto) Eos # (Auto) Seg Neutrophils % Seg Neuts % (Manual) Baso # (Auto) Lymphocytes % (Manual) Monocytes % (Manual) Eosinophils % (Manual) Basophils % (Manual) Seg Neutrophils # Seg Neutrophils # Man Lymphocytes # (Manual) Monocytes # (Manual) Eosinophils # (Manual) Nucleated RBC % Basophils # (Manual) Heparin Anti-Xa Level ABG pH POC ABG pO2 ABG pO2 ABG HCO3 ABG O2 Saturation ABG Base Excess ABG Hemoglobin ABG Oxyhemoglobin Oxyhemoglobin Sodium Potassium Chloride Carbon Dioxide BUN 29 H Creatinine Glucose POC Glucose 107 H Lactic Acid Calcium Phosphorus Magnesium AST ALT Lactate Dehydrogenase CK-MB (CK-2) C-Reactive Protein NT-Pro-B Natriuret Pep Total Protein Albumin Urine WBC (Auto) 11/26/19 11/27/19 11/27/19 17:11 01:53 04:11 WBC RBC Hgb Hct MCHC RDW Lymph % (Auto) [place] % (Auto) [place] # Eos # [place] # (Auto) Eos # (Auto) Seg Neutrophils % Seg Neuts % (Manual) Baso # (Auto) Lymphocytes % (Manual) Monocytes % (Manual) Eosinophils % (Manual) Basophils % (Manual) Seg Neutrophils # Seg Neutrophils # Man Lymphocytes # (Manual) Monocytes # (Manual) Eosinophils # (Manual) Nucleated RBC % Basophils # (Manual) Heparin Anti-Xa Level ABG pH POC ABG pO2 ABG pO2 ABG HCO3 29.2 H ABG O2 Saturation ABG Base Excess 3.4 H ABG Hemoglobin 13.3 L ABG Oxyhemoglobin Oxyhemoglobin 94.5 L Sodium Potassium Chloride Carbon Dioxide BUN Creatinine Glucose POC Glucose 113 H 108 H Lactic Acid Calcium Phosphorus Magnesium AST ALT Lactate Dehydrogenase CK-MB (CK-2) C-Reactive Protein NT-Pro-B Natriuret Pep Total Protein Albumin Urine WBC (Auto) 11/27/19 11/28/19 11/28/19 05:27 05:00 05:25 WBC RBC Hgb Hct MCHC RDW Lymph % (Auto) [place] % (Auto) [place] # Eos # [place] # (Auto) Eos # (Auto) Seg Neutrophils % Seg Neuts % (Manual) Baso # (Auto) Lymphocytes % (Manual) Monocytes % (Manual) Eosinophils % (Manual) Basophils % (Manual) Seg Neutrophils # Seg Neutrophils # Man Lymphocytes # (Manual) Monocytes # (Manual) Eosinophils # (Manual) Nucleated RBC % Basophils # (Manual) Heparin Anti-Xa Level ABG pH POC ABG pO2 68.1 L ABG pO2 ABG HCO3 ABG O2 Saturation ABG Base Excess ABG Hemoglobin ABG Oxyhemoglobin 91.2 L Oxyhemoglobin Sodium Potassium Chloride Carbon Dioxide BUN Creatinine Glucose POC Glucose 111 H 110 H Lactic Acid Calcium Phosphorus Magnesium AST ALT Lactate Dehydrogenase CK-MB (CK-2) C-Reactive Protein NT-Pro-B Natriuret Pep Total Protein Albumin Urine WBC (Auto) 11/28/19 11/28/19 11/28/19 12:08 13:47 13:47 WBC 11.3 H RBC Hgb Hct MCHC RDW 16.1 H Lymph % (Auto) [place] % (Auto) 9.9 H [place] # 1.1 H Eos # [place] # (Auto) Eos # (Auto) Seg Neutrophils % 71.4 H Seg Neuts % (Manual) Baso # (Auto) Lymphocytes % (Manual) Monocytes % (Manual) Eosinophils % (Manual) Basophils % (Manual) Seg Neutrophils # 8.1 H Seg Neutrophils # Man Lymphocytes # (Manual) Monocytes # (Manual) Eosinophils # (Manual) Nucleated RBC % Basophils # (Manual) Heparin Anti-Xa Level ABG pH POC ABG pO2 ABG pO2 ABG HCO3 ABG O2 Saturation ABG Base Excess ABG Hemoglobin ABG Oxyhemoglobin Oxyhemoglobin Sodium Potassium Chloride Carbon Dioxide BUN 23 H Creatinine Glucose 123 H POC Glucose 112 H Lactic Acid Calcium Phosphorus Magnesium AST ALT Lactate Dehydrogenase CK-MB (CK-2) C-Reactive Protein NT-Pro-B Natriuret Pep Total Protein Albumin 3.7 L Urine WBC (Auto) 11/28/19 11/29/19 11/29/19 17:26 03:55 17:04 WBC RBC Hgb Hct MCHC RDW Lymph % (Auto) [place] % (Auto) [place] # Eos # [place] # (Auto) Eos # (Auto) Seg Neutrophils % Seg Neuts % (Manual) Baso # (Auto) Lymphocytes % (Manual) Monocytes % (Manual) Eosinophils % (Manual) Basophils % (Manual) Seg Neutrophils # Seg Neutrophils # Man Lymphocytes # (Manual) Monocytes # (Manual) Eosinophils # (Manual) Nucleated RBC % Basophils # (Manual) Heparin Anti-Xa Level ABG pH POC ABG pO2 ABG pO2 65.7 L ABG HCO3 28.3 H ABG O2 Saturation 93.9 L ABG Base Excess 3.6 H ABG Hemoglobin 13.3 L ABG Oxyhemoglobin Oxyhemoglobin 91.5 L Sodium Potassium Chloride Carbon Dioxide BUN Creatinine Glucose POC Glucose 123 H 119 H Lactic Acid Calcium Phosphorus Magnesium AST ALT Lactate Dehydrogenase CK-MB (CK-2) C-Reactive Protein NT-Pro-B Natriuret Pep Total Protein Albumin Urine WBC (Auto) 11/30/19 11/30/19 11/30/19 04:17 04:17 04:56 WBC 13.4 H RBC Hgb Hct MCHC RDW 15.6 H Lymph % (Auto) [place] % (Auto) [place] # Eos # [place] # (Auto) Eos # (Auto) Seg Neutrophils % Seg Neuts % (Manual) Baso # (Auto) Lymphocytes % (Manual) Monocytes % (Manual) Eosinophils % (Manual) Basophils % (Manual) Seg Neutrophils # Seg Neutrophils # Man Lymphocytes # (Manual) Monocytes # (Manual) Eosinophils # (Manual) Nucleated RBC % Basophils # (Manual) Heparin Anti-Xa Level ABG pH POC ABG pO2 ABG pO2 56.3 L ABG HCO3 29.3 H ABG O2 Saturation 91.5 L ABG Base Excess 4.7 H ABG Hemoglobin 12.1 L ABG Oxyhemoglobin Oxyhemoglobin 89.2 L Sodium 147 H Potassium Chloride Carbon Dioxide BUN 30 H Creatinine Glucose 124 H POC Glucose Lactic Acid Calcium Phosphorus Magnesium AST ALT Lactate Dehydrogenase CK-MB (CK-2) C-Reactive Protein NT-Pro-B Natriuret Pep Total Protein Albumin 3.8 L Urine WBC (Auto) 11/30/19 11/30/19 11/30/19 05:51 11:54 18:17 WBC RBC Hgb Hct MCHC RDW Lymph % (Auto) [place] % (Auto) [place] # Eos # [place] # (Auto) Eos # (Auto) Seg Neutrophils % Seg Neuts % (Manual) Baso # (Auto) Lymphocytes % (Manual) Monocytes % (Manual) Eosinophils % (Manual) Basophils % (Manual) Seg Neutrophils # Seg Neutrophils # Man Lymphocytes # (Manual) Monocytes # (Manual) Eosinophils # (Manual) Nucleated RBC % Basophils # (Manual) Heparin Anti-Xa Level ABG pH POC ABG pO2 ABG pO2 ABG HCO3 ABG O2 Saturation ABG Base Excess ABG Hemoglobin ABG Oxyhemoglobin Oxyhemoglobin Sodium Potassium Chloride Carbon Dioxide BUN Creatinine Glucose POC Glucose 127 H 115 H 143 H Lactic Acid Calcium Phosphorus Magnesium AST ALT Lactate Dehydrogenase CK-MB (CK-2) C-Reactive Protein NT-Pro-B Natriuret Pep Total Protein Albumin Urine WBC (Auto) 12/01/19 12/01/19 12/01/19 01:18 05:22 12:16 WBC RBC Hgb Hct MCHC RDW Lymph % (Auto) [place] % (Auto) [place] # Eos # [place] # (Auto) Eos # (Auto) Seg Neutrophils % Seg Neuts % (Manual) Baso # (Auto) Lymphocytes % (Manual) Monocytes % (Manual) Eosinophils % (Manual) Basophils % (Manual) Seg Neutrophils # Seg Neutrophils # Man Lymphocytes # (Manual) Monocytes # (Manual) Eosinophils # (Manual) Nucleated RBC % Basophils # (Manual) Heparin Anti-Xa Level ABG pH POC ABG pO2 ABG pO2 ABG HCO3 ABG O2 Saturation ABG Base Excess ABG Hemoglobin ABG Oxyhemoglobin Oxyhemoglobin Sodium Potassium 3.5 L Chloride 107.8 H Carbon Dioxide BUN 37 H Creatinine Glucose 157 H POC Glucose 118 H 148 H Lactic Acid Calcium 8.2 L D Phosphorus Magnesium AST 48 H ALT 60 H Lactate Dehydrogenase 194 H CK-MB (CK-2) C-Reactive Protein 8.50 H NT-Pro-B Natriuret Pep Total Protein 5.5 L Albumin 2.8 L Urine WBC (Auto) 12/01/19 12/02/19 12/02/19 18:04 00:05 05:16 WBC 11.4 H RBC Hgb Hct MCHC RDW 15.9 H Lymph % (Auto) [place] % (Auto) 9.9 H [place] # 1.1 H Eos # [place] # (Auto) Eos # (Auto) Seg Neutrophils % 70.3 H Seg Neuts % (Manual) Baso # (Auto) Lymphocytes % (Manual) Monocytes % (Manual) Eosinophils % (Manual) Basophils % (Manual) Seg Neutrophils # 8.0 H Seg Neutrophils # Man Lymphocytes # (Manual) Monocytes # (Manual) Eosinophils # (Manual) Nucleated RBC % Basophils # (Manual) Heparin Anti-Xa Level ABG pH POC ABG pO2 ABG pO2 ABG HCO3 ABG O2 Saturation ABG Base Excess ABG Hemoglobin ABG Oxyhemoglobin Oxyhemoglobin Sodium Potassium Chloride Carbon Dioxide BUN Creatinine Glucose POC Glucose 143 H 107 H Lactic Acid Calcium Phosphorus Magnesium AST ALT Lactate Dehydrogenase CK-MB (CK-2) C-Reactive Protein NT-Pro-B Natriuret Pep Total Protein Albumin Urine WBC (Auto) 12/02/19 12/02/19 12/02/19 05:16 06:03 11:52 WBC RBC Hgb Hct MCHC RDW Lymph % (Auto) [place] % (Auto) [place] # Eos # [place] # (Auto) Eos # (Auto) Seg Neutrophils % Seg Neuts % (Manual) Baso # (Auto) Lymphocytes % (Manual) Monocytes % (Manual) Eosinophils % (Manual) Basophils % (Manual) Seg Neutrophils # Seg Neutrophils # Man Lymphocytes # (Manual) Monocytes # (Manual) Eosinophils # (Manual) Nucleated RBC % Basophils # (Manual) Heparin Anti-Xa Level ABG pH POC ABG pO2 ABG pO2 ABG HCO3 ABG O2 Saturation ABG Base Excess ABG Hemoglobin ABG Oxyhemoglobin Oxyhemoglobin Sodium 146 H Potassium Chloride Carbon Dioxide BUN 28 H Creatinine Glucose 123 H POC Glucose 110 H 152 H Lactic Acid Calcium Phosphorus Magnesium AST ALT Lactate Dehydrogenase CK-MB (CK-2) C-Reactive Protein NT-Pro-B Natriuret Pep Total Protein Albumin Urine WBC (Auto) 12/02/19 12/02/19 12/02/19 12:58 17:58 23:36 WBC RBC Hgb Hct MCHC RDW Lymph % (Auto) [place] % (Auto) [place] # Eos # [place] # (Auto) Eos # (Auto) Seg Neutrophils % Seg Neuts % (Manual) Baso # (Auto) Lymphocytes % (Manual) Monocytes % (Manual) Eosinophils % (Manual) Basophils % (Manual) Seg Neutrophils # Seg Neutrophils # Man Lymphocytes # (Manual) Monocytes # (Manual) Eosinophils # (Manual) Nucleated RBC % Basophils # (Manual) Heparin Anti-Xa Level ABG pH POC ABG pO2 78.1 L ABG pO2 ABG HCO3 ABG O2 Saturation ABG Base Excess ABG Hemoglobin ABG Oxyhemoglobin Oxyhemoglobin Sodium Potassium Chloride Carbon Dioxide BUN Creatinine Glucose POC Glucose 120 H 123 H Lactic Acid Calcium Phosphorus Magnesium AST ALT Lactate Dehydrogenase CK-MB (CK-2) C-Reactive Protein NT-Pro-B Natriuret Pep Total Protein Albumin Urine WBC (Auto) 12/03/19 12/03/19 12/03/19 06:03 06:14 11:46 WBC RBC Hgb Hct MCHC RDW Lymph % (Auto) [place] % (Auto) [place] # Eos # [place] # (Auto) Eos # (Auto) Seg Neutrophils % Seg Neuts % (Manual) Baso # (Auto) Lymphocytes % (Manual) Monocytes % (Manual) Eosinophils % (Manual) Basophils % (Manual) Seg Neutrophils # Seg Neutrophils # Man Lymphocytes # (Manual) Monocytes # (Manual) Eosinophils # (Manual) Nucleated RBC % Basophils # (Manual) Heparin Anti-Xa Level ABG pH POC ABG pO2 ABG pO2 ABG HCO3 ABG O2 Saturation ABG Base Excess ABG Hemoglobin ABG Oxyhemoglobin Oxyhemoglobin Sodium Potassium Chloride Carbon Dioxide BUN Creatinine Glucose POC Glucose 142 H 130 H Lactic Acid Calcium Phosphorus Magnesium AST ALT Lactate Dehydrogenase CK-MB (CK-2) C-Reactive Protein NT-Pro-B Natriuret Pep Total Protein Albumin Urine WBC (Auto) 8.0 H 12/03/19 12/03/19 12/04/19 15:50 17:39 00:04 WBC RBC Hgb Hct MCHC RDW Lymph % (Auto) [place] % (Auto) [place] # Eos # [place] # (Auto) Eos # (Auto) Seg Neutrophils % Seg Neuts % (Manual) Baso # (Auto) Lymphocytes % (Manual) Monocytes % (Manual) Eosinophils % (Manual) Basophils % (Manual) Seg Neutrophils # Seg Neutrophils # Man Lymphocytes # (Manual) Monocytes # (Manual) Eosinophils # (Manual) Nucleated RBC % Basophils # (Manual) Heparin Anti-Xa Level ABG pH POC ABG pO2 ABG pO2 ABG HCO3 ABG O2 Saturation ABG Base Excess ABG Hemoglobin ABG Oxyhemoglobin Oxyhemoglobin Sodium Potassium Chloride Carbon Dioxide BUN Creatinine Glucose POC Glucose 146 H 133 H Lactic Acid Calcium Phosphorus 2.40 L Magnesium AST ALT Lactate Dehydrogenase CK-MB (CK-2) C-Reactive Protein NT-Pro-B Natriuret Pep Total Protein Albumin Urine WBC (Auto) 12/04/19 12/04/19 12/04/19 03:58 03:58 05:22 WBC 12.5 H RBC Hgb 11.2 L Hct 35.2 L MCHC RDW 16.0 H Lymph % (Auto) [place] % (Auto) 9.6 H [place] # 1.2 H Eos # 0.5 H [place] # (Auto) Eos # (Auto) Seg Neutrophils % Seg Neuts % (Manual) Baso # (Auto) Lymphocytes % (Manual) Monocytes % (Manual) Eosinophils % (Manual) Basophils % (Manual) Seg Neutrophils # 8.6 H Seg Neutrophils # Man Lymphocytes # (Manual) Monocytes # (Manual) Eosinophils # (Manual) Nucleated RBC % Basophils # (Manual) Heparin Anti-Xa Level ABG pH POC ABG pO2 ABG pO2 ABG HCO3 ABG O2 Saturation ABG Base Excess ABG Hemoglobin ABG Oxyhemoglobin Oxyhemoglobin Sodium 146 H Potassium Chloride 108.6 H Carbon Dioxide BUN 30 H Creatinine 0.7 L Glucose 121 H POC Glucose 132 H Lactic Acid Calcium Phosphorus Magnesium AST ALT Lactate Dehydrogenase CK-MB (CK-2) C-Reactive Protein NT-Pro-B Natriuret Pep Total Protein Albumin Urine WBC (Auto) 12/04/19 12/04/19 12/05/19 13:26 18:43 00:19 WBC RBC Hgb Hct MCHC RDW Lymph % (Auto) [place] % (Auto) [place] # Eos # [place] # (Auto) Eos # (Auto) Seg Neutrophils % Seg Neuts % (Manual) Baso # (Auto) Lymphocytes % (Manual) Monocytes % (Manual) Eosinophils % (Manual) Basophils % (Manual) Seg Neutrophils # Seg Neutrophils # Man Lymphocytes # (Manual) Monocytes # (Manual) Eosinophils # (Manual) Nucleated RBC % Basophils # (Manual) Heparin Anti-Xa Level ABG pH POC ABG pO2 ABG pO2 ABG HCO3 ABG O2 Saturation ABG Base Excess ABG Hemoglobin ABG Oxyhemoglobin Oxyhemoglobin Sodium Potassium Chloride Carbon Dioxide BUN Creatinine Glucose POC Glucose 185 H 156 H 150 H Lactic Acid Calcium Phosphorus Magnesium AST ALT Lactate Dehydrogenase CK-MB (CK-2) C-Reactive Protein NT-Pro-B Natriuret Pep Total Protein Albumin Urine WBC (Auto) 12/05/19 12/05/19 12/05/19 03:37 03:37 05:14 WBC 16.3 H RBC Hgb 11.4 L Hct MCHC RDW 15.6 H Lymph % (Auto) 9.9 L [place] % (Auto) 9.7 H [place] # 1.6 H Eos # [place] # (Auto) Eos # (Auto) Seg Neutrophils % 78.0 H Seg Neuts % (Manual) Baso # (Auto) Lymphocytes % (Manual) Monocytes % (Manual) Eosinophils % (Manual) Basophils % (Manual) Seg Neutrophils # 12.7 H Seg Neutrophils # Man Lymphocytes # (Manual) Monocytes # (Manual) Eosinophils # (Manual) Nucleated RBC % Basophils # (Manual) Heparin Anti-Xa Level ABG pH POC ABG pO2 ABG pO2 ABG HCO3 ABG O2 Saturation ABG Base Excess ABG Hemoglobin ABG Oxyhemoglobin Oxyhemoglobin Sodium 146 H Potassium Chloride 107.2 H Carbon Dioxide BUN 27 H Creatinine 0.7 L Glucose 171 H POC Glucose 168 H Lactic Acid Calcium Phosphorus Magnesium AST ALT Lactate Dehydrogenase CK-MB (CK-2) C-Reactive Protein NT-Pro-B Natriuret Pep Total Protein Albumin Urine WBC (Auto) 12/05/19 12/05/19 12/05/19 12:31 18:10 23:58 WBC RBC Hgb Hct MCHC RDW Lymph % (Auto) [place] % (Auto) [place] # Eos # [place] # (Auto) Eos # (Auto) Seg Neutrophils % Seg Neuts % (Manual) Baso # (Auto) Lymphocytes % (Manual) Monocytes % (Manual) Eosinophils % (Manual) Basophils % (Manual) Seg Neutrophils # Seg Neutrophils # Man Lymphocytes # (Manual) Monocytes # (Manual) Eosinophils # (Manual) Nucleated RBC % Basophils # (Manual) Heparin Anti-Xa Level ABG pH POC ABG pO2 ABG pO2 ABG HCO3 ABG O2 Saturation ABG Base Excess ABG Hemoglobin ABG Oxyhemoglobin Oxyhemoglobin Sodium Potassium Chloride Carbon Dioxide BUN Creatinine Glucose POC Glucose 159 H 198 H 115 H Lactic Acid Calcium Phosphorus Magnesium AST ALT Lactate Dehydrogenase CK-MB (CK-2) C-Reactive Protein NT-Pro-B Natriuret Pep Total Protein Albumin Urine WBC (Auto) 12/06/19 12/06/19 12/06/19 05:24 05:24 05:25 WBC 14.9 H RBC Hgb 10.8 L Hct 34.0 L MCHC RDW 15.6 H Lymph % (Auto) 10.7 L [place] % (Auto) 8.3 H [place] # 1.2 H Eos # [place] # (Auto) Eos # (Auto) Seg Neutrophils % 78.7 H Seg Neuts % (Manual) Baso # (Auto) Lymphocytes % (Manual) Monocytes % (Manual) Eosinophils % (Manual) Basophils % (Manual) Seg Neutrophils # 11.7 H Seg Neutrophils # Man Lymphocytes # (Manual) Monocytes # (Manual) Eosinophils # (Manual) Nucleated RBC % Basophils # (Manual) Heparin Anti-Xa Level ABG pH POC ABG pO2 ABG pO2 ABG HCO3 ABG O2 Saturation ABG Base Excess ABG Hemoglobin ABG Oxyhemoglobin Oxyhemoglobin Sodium 148 H Potassium 5.1 H Chloride 107.6 H Carbon Dioxide BUN 27 H Creatinine 0.7 L Glucose 155 H POC Glucose 157 H Lactic Acid Calcium Phosphorus Magnesium AST ALT Lactate Dehydrogenase CK-MB (CK-2) C-Reactive Protein NT-Pro-B Natriuret Pep Total Protein Albumin Urine WBC (Auto) 12/07/19 12/07/19 12/07/19 00:13 05:34 11:33 WBC RBC Hgb Hct MCHC RDW Lymph % (Auto) [place] % (Auto) [place] # Eos # [place] # (Auto) Eos # (Auto) Seg Neutrophils % Seg Neuts % (Manual) Baso # (Auto) Lymphocytes % (Manual) Monocytes % (Manual) Eosinophils % (Manual) Basophils % (Manual) Seg Neutrophils # Seg Neutrophils # Man Lymphocytes # (Manual) Monocytes # (Manual) Eosinophils # (Manual) Nucleated RBC % Basophils # (Manual) Heparin Anti-Xa Level ABG pH POC ABG pO2 ABG pO2 ABG HCO3 ABG O2 Saturation ABG Base Excess ABG Hemoglobin ABG Oxyhemoglobin Oxyhemoglobin Sodium Potassium Chloride Carbon Dioxide BUN Creatinine Glucose POC Glucose 142 H 111 H 169 H Lactic Acid Calcium Phosphorus Magnesium AST ALT Lactate Dehydrogenase CK-MB (CK-2) C-Reactive Protein NT-Pro-B Natriuret Pep Total Protein Albumin Urine WBC (Auto) 12/07/19 12/07/19 12/07/19 12:41 13:25 18:19 WBC 12.4 H RBC 3.53 L Hgb 10.2 L Hct 32.1 L MCHC RDW 15.3 H Lymph % (Auto) 10.6 L [place] % (Auto) 7.8 H [place] # 1.0 H Eos # [place] # (Auto) Eos # (Auto) Seg Neutrophils % 77.6 H Seg Neuts % (Manual) Baso # (Auto) Lymphocytes % (Manual) Monocytes % (Manual) Eosinophils % (Manual) Basophils % (Manual) Seg Neutrophils # 9.6 H Seg Neutrophils # Man Lymphocytes # (Manual) Monocytes # (Manual) Eosinophils # (Manual) Nucleated RBC % Basophils # (Manual) Heparin Anti-Xa Level ABG pH POC ABG pO2 ABG pO2 ABG HCO3 ABG O2 Saturation ABG Base Excess ABG Hemoglobin ABG Oxyhemoglobin Oxyhemoglobin Sodium 149 H Potassium Chloride 108.4 H Carbon Dioxide BUN 26 H Creatinine 0.6 L Glucose 149 H POC Glucose 164 H Lactic Acid Calcium Phosphorus Magnesium 2.60 H AST 121 H ALT 145 H Lactate Dehydrogenase CK-MB (CK-2) C-Reactive Protein NT-Pro-B Natriuret Pep Total Protein Albumin 2.6 L Urine WBC (Auto) 12/07/19 12/08/19 12/08/19 22:25 00:02 03:55 WBC 13.3 H RBC 3.40 L Hgb 9.7 L Hct 30.8 L MCHC 31 L RDW 15.5 H Lymph % (Auto) [place] % (Auto) 8.1 H [place] # 1.1 H Eos # [place] # (Auto) Eos # (Auto) Seg Neutrophils % 73.0 H Seg Neuts % (Manual) Baso # (Auto) Lymphocytes % (Manual) Monocytes % (Manual) Eosinophils % (Manual) Basophils % (Manual) Seg Neutrophils # 9.7 H Seg Neutrophils # Man Lymphocytes # (Manual) Monocytes # (Manual) Eosinophils # (Manual) Nucleated RBC % Basophils # (Manual) Heparin Anti-Xa Level 0.12 L ABG pH POC ABG pO2 ABG pO2 ABG HCO3 ABG O2 Saturation ABG Base Excess ABG Hemoglobin ABG Oxyhemoglobin Oxyhemoglobin Sodium Potassium Chloride Carbon Dioxide BUN Creatinine Glucose POC Glucose 151 H Lactic Acid Calcium Phosphorus Magnesium AST ALT Lactate Dehydrogenase CK-MB (CK-2) C-Reactive Protein NT-Pro-B Natriuret Pep Total Protein Albumin Urine WBC (Auto) 12/08/19 12/08/19 12/08/19 03:55 05:21 06:01 WBC RBC Hgb Hct MCHC RDW Lymph % (Auto) [place] % (Auto) [place] # Eos # [place] # (Auto) Eos # (Auto) Seg Neutrophils % Seg Neuts % (Manual) Baso # (Auto) Lymphocytes % (Manual) Monocytes % (Manual) Eosinophils % (Manual) Basophils % (Manual) Seg Neutrophils # Seg Neutrophils # Man Lymphocytes # (Manual) Monocytes # (Manual) Eosinophils # (Manual) Nucleated RBC % Basophils # (Manual) Heparin Anti-Xa Level 0.20 L ABG pH POC ABG pO2 ABG pO2 ABG HCO3 ABG O2 Saturation ABG Base Excess ABG Hemoglobin ABG Oxyhemoglobin Oxyhemoglobin Sodium 149 H Potassium Chloride 108.0 H Carbon Dioxide BUN 28 H Creatinine 0.6 L Glucose 144 H POC Glucose 143 H Lactic Acid Calcium Phosphorus Magnesium AST 98 H ALT 145 H Lactate Dehydrogenase CK-MB (CK-2) C-Reactive Protein NT-Pro-B Natriuret Pep Total Protein 6.0 L Albumin 2.4 L Urine WBC (Auto) 12/08/19 12/08/19 12/08/19 12:08 18:11 23:53 WBC RBC Hgb Hct MCHC RDW Lymph % (Auto) [place] % (Auto) [place] # Eos # [place] # (Auto) Eos # (Auto) Seg Neutrophils % Seg Neuts % (Manual) Baso # (Auto) Lymphocytes % (Manual) Monocytes % (Manual) Eosinophils % (Manual) Basophils % (Manual) Seg Neutrophils # Seg Neutrophils # Man Lymphocytes # (Manual) Monocytes # (Manual) Eosinophils # (Manual) Nucleated RBC % Basophils # (Manual) Heparin Anti-Xa Level ABG pH POC ABG pO2 ABG pO2 ABG HCO3 ABG O2 Saturation ABG Base Excess ABG Hemoglobin ABG Oxyhemoglobin Oxyhemoglobin Sodium Potassium Chloride Carbon Dioxide BUN Creatinine Glucose POC Glucose 172 H 122 H 162 H Lactic Acid Calcium Phosphorus Magnesium AST ALT Lactate Dehydrogenase CK-MB (CK-2) C-Reactive Protein NT-Pro-B Natriuret Pep Total Protein Albumin Urine WBC (Auto) 12/09/19 12/09/19 12/09/19 04:03 04:03 05:53 WBC RBC Hgb 9.1 L Hct 28.9 L MCHC RDW Lymph % (Auto) [place] % (Auto) [place] # Eos # [place] # (Auto) Eos # (Auto) Seg Neutrophils % Seg Neuts % (Manual) Baso # (Auto) Lymphocytes % (Manual) Monocytes % (Manual) Eosinophils % (Manual) Basophils % (Manual) Seg Neutrophils # Seg Neutrophils # Man Lymphocytes # (Manual) Monocytes # (Manual) Eosinophils # (Manual) Nucleated RBC % Basophils # (Manual) Heparin Anti-Xa Level 0.15 L ABG pH POC ABG pO2 ABG pO2 ABG HCO3 ABG O2 Saturation ABG Base Excess ABG Hemoglobin ABG Oxyhemoglobin Oxyhemoglobin Sodium Potassium Chloride Carbon Dioxide BUN Creatinine Glucose POC Glucose 124 H Lactic Acid Calcium Phosphorus Magnesium AST ALT Lactate Dehydrogenase CK-MB (CK-2) C-Reactive Protein NT-Pro-B Natriuret Pep Total Protein Albumin Urine WBC (Auto) 12/09/19 12/09/19 12/10/19 09:43 12:41 00:13 WBC RBC Hgb Hct MCHC RDW Lymph % (Auto) [place] % (Auto) [place] # Eos # [place] # (Auto) Eos # (Auto) Seg Neutrophils % Seg Neuts % (Manual) Baso # (Auto) Lymphocytes % (Manual) Monocytes % (Manual) Eosinophils % (Manual) Basophils % (Manual) Seg Neutrophils # Seg Neutrophils # Man Lymphocytes # (Manual) Monocytes # (Manual) Eosinophils # (Manual) Nucleated RBC % Basophils # (Manual) Heparin Anti-Xa Level ABG pH POC ABG pO2 ABG pO2 ABG HCO3 ABG O2 Saturation ABG Base Excess ABG Hemoglobin ABG Oxyhemoglobin Oxyhemoglobin Sodium Potassium Chloride Carbon Dioxide BUN 25 H Creatinine 0.6 L Glucose 131 H POC Glucose 109 H 120 H Lactic Acid Calcium Phosphorus Magnesium AST ALT Lactate Dehydrogenase CK-MB (CK-2) C-Reactive Protein NT-Pro-B Natriuret Pep Total Protein Albumin Urine WBC (Auto) 12/10/19 12/10/19 12/10/19 04:14 04:14 12:00 WBC 13.3 H RBC 3.34 L Hgb 9.6 L Hct 30.4 L MCHC RDW 15.4 H Lymph % (Auto) [place] % (Auto) [place] # Eos # [place] # (Auto) Eos # (Auto) Seg Neutrophils % Seg Neuts % (Manual) 75.0 H Baso # (Auto) Lymphocytes % (Manual) 13.0 L Monocytes % (Manual) 8.0 H Eosinophils % (Manual) Basophils % (Manual) 2.0 H Seg Neutrophils # Seg Neutrophils # Man 10.0 H Lymphocytes # (Manual) Monocytes # (Manual) 1.1 H Eosinophils # (Manual) Nucleated RBC % Basophils # (Manual) 0.3 H Heparin Anti-Xa Level ABG pH POC ABG pO2 ABG pO2 ABG HCO3 ABG O2 Saturation ABG Base Excess ABG Hemoglobin ABG Oxyhemoglobin Oxyhemoglobin Sodium 147 H Potassium Chloride 108.3 H Carbon Dioxide BUN 21 H Creatinine 0.6 L Glucose 104 H POC Glucose 133 H Lactic Acid Calcium Phosphorus Magnesium AST ALT Lactate Dehydrogenase CK-MB (CK-2) C-Reactive Protein NT-Pro-B Natriuret Pep Total Protein Albumin Urine WBC (Auto) 12/10/19 12/10/19 12/11/19 18:44 21:20 00:08 WBC 14.9 H RBC 3.36 L Hgb 9.6 L Hct 30.5 L MCHC RDW 15.4 H Lymph % (Auto) [place] % (Auto) [place] # Eos # [place] # (Auto) Eos # (Auto) Seg Neutrophils % Seg Neuts % (Manual) Baso # (Auto) Lymphocytes % (Manual) Monocytes % (Manual) Eosinophils % (Manual) Basophils % (Manual) Seg Neutrophils # Seg Neutrophils # Man Lymphocytes # (Manual) Monocytes # (Manual) Eosinophils # (Manual) Nucleated RBC % Basophils # (Manual) Heparin Anti-Xa Level ABG pH POC ABG pO2 ABG pO2 ABG HCO3 ABG O2 Saturation ABG Base Excess ABG Hemoglobin ABG Oxyhemoglobin Oxyhemoglobin Sodium Potassium Chloride Carbon Dioxide BUN Creatinine Glucose POC Glucose 119 H 134 H Lactic Acid Calcium Phosphorus Magnesium AST ALT Lactate Dehydrogenase CK-MB (CK-2) C-Reactive Protein NT-Pro-B Natriuret Pep Total Protein Albumin Urine WBC (Auto) 12/11/19 12/11/19 12/11/19 03:54 07:28 08:36 WBC 11.9 H RBC 3.25 L Hgb 9.6 L Hct 29.2 L MCHC RDW 15.7 H Lymph % (Auto) [place] % (Auto) [place] # Eos # [place] # (Auto) Eos # (Auto) Seg Neutrophils % Seg Neuts % (Manual) Baso # (Auto) Lymphocytes % (Manual) Monocytes % (Manual) Eosinophils % (Manual) Basophils % (Manual) Seg Neutrophils # Seg Neutrophils # Man Lymphocytes # (Manual) Monocytes # (Manual) Eosinophils # (Manual) Nucleated RBC % Basophils # (Manual) Heparin Anti-Xa Level 0.10 L 0.16 L ABG pH POC ABG pO2 ABG pO2 ABG HCO3 ABG O2 Saturation ABG Base Excess ABG Hemoglobin ABG Oxyhemoglobin Oxyhemoglobin Sodium Potassium Chloride Carbon Dioxide BUN Creatinine Glucose POC Glucose Lactic Acid Calcium Phosphorus Magnesium AST ALT Lactate Dehydrogenase CK-MB (CK-2) C-Reactive Protein NT-Pro-B Natriuret Pep Total Protein Albumin Urine WBC (Auto) 12/11/19 12/11/19 12/11/19 08:36 11:45 17:15 WBC RBC Hgb Hct MCHC RDW Lymph % (Auto) [place] % (Auto) [place] # Eos # [place] # (Auto) Eos # (Auto) Seg Neutrophils % Seg Neuts % (Manual) Baso # (Auto) Lymphocytes % (Manual) Monocytes % (Manual) Eosinophils % (Manual) Basophils % (Manual) Seg Neutrophils # Seg Neutrophils # Man Lymphocytes # (Manual) Monocytes # (Manual) Eosinophils # (Manual) Nucleated RBC % Basophils # (Manual) Heparin Anti-Xa Level ABG pH POC ABG pO2 ABG pO2 ABG HCO3 ABG O2 Saturation ABG Base Excess ABG Hemoglobin ABG Oxyhemoglobin Oxyhemoglobin Sodium Potassium Chloride Carbon Dioxide BUN Creatinine 0.5 L Glucose 128 H POC Glucose 136 H 109 H Lactic Acid Calcium Phosphorus Magnesium AST ALT Lactate Dehydrogenase CK-MB (CK-2) C-Reactive Protein NT-Pro-B Natriuret Pep Total Protein Albumin Urine WBC (Auto) 12/12/19 12/12/19 12/12/19 00:03 05:53 05:53 WBC RBC Hgb 8.8 L Hct 27.6 L MCHC RDW Lymph % (Auto) [place] % (Auto) [place] # Eos # [place] # (Auto) Eos # (Auto) Seg Neutrophils % Seg Neuts % (Manual) Baso # (Auto) Lymphocytes % (Manual) Monocytes % (Manual) Eosinophils % (Manual) Basophils % (Manual) Seg Neutrophils # Seg Neutrophils # Man Lymphocytes # (Manual) Monocytes # (Manual) Eosinophils # (Manual) Nucleated RBC % Basophils # (Manual) Heparin Anti-Xa Level 0.22 L ABG pH POC ABG pO2 ABG pO2 ABG HCO3 ABG O2 Saturation ABG Base Excess ABG Hemoglobin ABG Oxyhemoglobin Oxyhemoglobin Sodium Potassium Chloride Carbon Dioxide BUN Creatinine Glucose POC Glucose 116 H Lactic Acid Calcium Phosphorus Magnesium AST ALT Lactate Dehydrogenase CK-MB (CK-2) C-Reactive Protein NT-Pro-B Natriuret Pep Total Protein Albumin Urine WBC (Auto) 12/12/19 12/12/19 12/12/19 09:38 12:18 17:44 WBC RBC Hgb Hct MCHC RDW Lymph % (Auto) [place] % (Auto) [place] # Eos # [place] # (Auto) Eos # (Auto) Seg Neutrophils % Seg Neuts % (Manual) Baso # (Auto) Lymphocytes % (Manual) Monocytes % (Manual) Eosinophils % (Manual) Basophils % (Manual) Seg Neutrophils # Seg Neutrophils # Man Lymphocytes # (Manual) Monocytes # (Manual) Eosinophils # (Manual) Nucleated RBC % Basophils # (Manual) Heparin Anti-Xa Level ABG pH POC ABG pO2 ABG pO2 ABG HCO3 ABG O2 Saturation ABG Base Excess ABG Hemoglobin ABG Oxyhemoglobin Oxyhemoglobin Sodium Potassium Chloride Carbon Dioxide BUN Creatinine Glucose POC Glucose 115 H 146 H 146 H Lactic Acid Calcium Phosphorus Magnesium AST ALT Lactate Dehydrogenase CK-MB (CK-2) C-Reactive Protein NT-Pro-B Natriuret Pep Total Protein Albumin Urine WBC (Auto) 12/12/19 12/13/19 12/13/19 23:33 05:32 05:32 WBC 13.1 H RBC 3.27 L Hgb 9.5 L Hct 29.3 L MCHC RDW 15.6 H Lymph % (Auto) [place] % (Auto) [place] # Eos # [place] # (Auto) Eos # (Auto) Seg Neutrophils % Seg Neuts % (Manual) 74.0 H Baso # (Auto) Lymphocytes % (Manual) 8.0 L Monocytes % (Manual) 9.0 H Eosinophils % (Manual) 5.0 H Basophils % (Manual) Seg Neutrophils # Seg Neutrophils # Man 9.7 H Lymphocytes # (Manual) 1.0 L Monocytes # (Manual) 1.2 H Eosinophils # (Manual) 0.7 H Nucleated RBC % Basophils # (Manual) Heparin Anti-Xa Level 0.20 L ABG pH POC ABG pO2 ABG pO2 ABG HCO3 ABG O2 Saturation ABG Base Excess ABG Hemoglobin ABG Oxyhemoglobin Oxyhemoglobin Sodium Potassium Chloride Carbon Dioxide BUN Creatinine Glucose POC Glucose 126 H Lactic Acid Calcium Phosphorus Magnesium AST ALT Lactate Dehydrogenase CK-MB (CK-2) C-Reactive Protein NT-Pro-B Natriuret Pep Total Protein Albumin Urine WBC (Auto) 12/13/19 12/13/19 12/13/19 05:32 05:46 11:57 WBC RBC Hgb Hct MCHC RDW Lymph % (Auto) [place] % (Auto) [place] # Eos # [place] # (Auto) Eos # (Auto) Seg Neutrophils % Seg Neuts % (Manual) Baso # (Auto) Lymphocytes % (Manual) Monocytes % (Manual) Eosinophils % (Manual) Basophils % (Manual) Seg Neutrophils # Seg Neutrophils # Man Lymphocytes # (Manual) Monocytes # (Manual) Eosinophils # (Manual) Nucleated RBC % Basophils # (Manual) Heparin Anti-Xa Level ABG pH POC ABG pO2 ABG pO2 ABG HCO3 ABG O2 Saturation ABG Base Excess ABG Hemoglobin ABG Oxyhemoglobin Oxyhemoglobin Sodium Potassium Chloride Carbon Dioxide 31 H BUN Creatinine 0.6 L Glucose 114 H POC Glucose 118 H 133 H Lactic Acid Calcium Phosphorus Magnesium AST ALT Lactate Dehydrogenase CK-MB (CK-2) C-Reactive Protein NT-Pro-B Natriuret Pep Total Protein Albumin Urine WBC (Auto) 12/13/19 12/13/19 12/14/19 17:44 23:46 05:32 WBC RBC Hgb Hct MCHC RDW Lymph % (Auto) [place] % (Auto) [place] # Eos # [place] # (Auto) Eos # (Auto) Seg Neutrophils % Seg Neuts % (Manual) Baso # (Auto) Lymphocytes % (Manual) Monocytes % (Manual) Eosinophils % (Manual) Basophils % (Manual) Seg Neutrophils # Seg Neutrophils # Man Lymphocytes # (Manual) Monocytes # (Manual) Eosinophils # (Manual) Nucleated RBC % Basophils # (Manual) Heparin Anti-Xa Level ABG pH POC ABG pO2 ABG pO2 ABG HCO3 ABG O2 Saturation ABG Base Excess ABG Hemoglobin ABG Oxyhemoglobin Oxyhemoglobin Sodium Potassium Chloride Carbon Dioxide BUN Creatinine Glucose POC Glucose 161 H 126 H 139 H Lactic Acid Calcium Phosphorus Magnesium AST ALT Lactate Dehydrogenase CK-MB (CK-2) C-Reactive Protein NT-Pro-B Natriuret Pep Total Protein Albumin Urine WBC (Auto) 12/14/19 12/14/19 12/14/19 06:03 06:03 09:37 WBC RBC Hgb 9.6 L Hct 30.4 L MCHC RDW Lymph % (Auto) [place] % (Auto) [place] # Eos # [place] # (Auto) Eos # (Auto) Seg Neutrophils % Seg Neuts % (Manual) Baso # (Auto) Lymphocytes % (Manual) Monocytes % (Manual) Eosinophils % (Manual) Basophils % (Manual) Seg Neutrophils # Seg Neutrophils # Man Lymphocytes # (Manual) Monocytes # (Manual) Eosinophils # (Manual) Nucleated RBC % Basophils # (Manual) Heparin Anti-Xa Level 0.24 L ABG pH POC ABG pO2 ABG pO2 ABG HCO3 ABG O2 Saturation ABG Base Excess ABG Hemoglobin ABG Oxyhemoglobin Oxyhemoglobin Sodium Potassium Chloride Carbon Dioxide BUN Creatinine 0.6 L Glucose 162 H POC Glucose Lactic Acid Calcium Phosphorus Magnesium AST 71 H ALT 118 H Lactate Dehydrogenase CK-MB (CK-2) C-Reactive Protein NT-Pro-B Natriuret Pep Total Protein 6.2 L Albumin 2.3 L Urine WBC (Auto) 12/14/19 12/14/19 12/15/19 12:06 18:18 00:19 WBC RBC Hgb Hct MCHC RDW Lymph % (Auto) [place] % (Auto) [place] # Eos # [place] # (Auto) Eos # (Auto) Seg Neutrophils % Seg Neuts % (Manual) Baso # (Auto) Lymphocytes % (Manual) Monocytes % (Manual) Eosinophils % (Manual) Basophils % (Manual) Seg Neutrophils # Seg Neutrophils # Man Lymphocytes # (Manual) Monocytes # (Manual) Eosinophils # (Manual) Nucleated RBC % Basophils # (Manual) Heparin Anti-Xa Level ABG pH POC ABG pO2 ABG pO2 ABG HCO3 ABG O2 Saturation ABG Base Excess ABG Hemoglobin ABG Oxyhemoglobin Oxyhemoglobin Sodium Potassium Chloride Carbon Dioxide BUN Creatinine Glucose POC Glucose 147 H 166 H 123 H Lactic Acid Calcium Phosphorus Magnesium AST ALT Lactate Dehydrogenase CK-MB (CK-2) C-Reactive Protein NT-Pro-B Natriuret Pep Total Protein Albumin Urine WBC (Auto) 12/15/19 12/15/19 12/15/19 05:28 05:29 05:29 WBC 14.9 H RBC 3.19 L Hgb 9.1 L Hct 28.7 L MCHC RDW 16.0 H Lymph % (Auto) [place] % (Auto) [place] # Eos # [place] # (Auto) Eos # (Auto) Seg Neutrophils % Seg Neuts % (Manual) Baso # (Auto) Lymphocytes % (Manual) Monocytes % (Manual) Eosinophils % (Manual) Basophils % (Manual) Seg Neutrophils # Seg Neutrophils # Man Lymphocytes # (Manual) Monocytes # (Manual) Eosinophils # (Manual) Nucleated RBC % Basophils # (Manual) Heparin Anti-Xa Level 0.19 L ABG pH POC ABG pO2 ABG pO2 ABG HCO3 ABG O2 Saturation ABG Base Excess ABG Hemoglobin ABG Oxyhemoglobin Oxyhemoglobin Sodium Potassium Chloride Carbon Dioxide BUN Creatinine 0.6 L Glucose 110 H POC Glucose Lactic Acid Calcium Phosphorus Magnesium AST ALT Lactate Dehydrogenase CK-MB (CK-2) C-Reactive Protein NT-Pro-B Natriuret Pep Total Protein Albumin Urine WBC (Auto) 12/15/19 12/15/19 12/15/19 05:53 11:50 17:26 WBC RBC Hgb Hct MCHC RDW Lymph % (Auto) [place] % (Auto) [place] # Eos # [place] # (Auto) Eos # (Auto) Seg Neutrophils % Seg Neuts % (Manual) Baso # (Auto) Lymphocytes % (Manual) Monocytes % (Manual) Eosinophils % (Manual) Basophils % (Manual) Seg Neutrophils # Seg Neutrophils # Man Lymphocytes # (Manual) Monocytes # (Manual) Eosinophils # (Manual) Nucleated RBC % Basophils # (Manual) Heparin Anti-Xa Level ABG pH POC ABG pO2 ABG pO2 ABG HCO3 ABG O2 Saturation ABG Base Excess ABG Hemoglobin ABG Oxyhemoglobin Oxyhemoglobin Sodium Potassium Chloride Carbon Dioxide BUN Creatinine Glucose POC Glucose 119 H 132 H 128 H Lactic Acid Calcium Phosphorus Magnesium AST ALT Lactate Dehydrogenase CK-MB (CK-2) C-Reactive Protein NT-Pro-B Natriuret Pep Total Protein Albumin Urine WBC (Auto) 12/15/19 12/16/19 12/16/19 23:11 05:30 05:46 WBC RBC Hgb 8.8 L Hct 27.9 L MCHC RDW Lymph % (Auto) [place] % (Auto) [place] # Eos # [place] # (Auto) Eos # (Auto) Seg Neutrophils % Seg Neuts % (Manual) Baso # (Auto) Lymphocytes % (Manual) Monocytes % (Manual) Eosinophils % (Manual) Basophils % (Manual) Seg Neutrophils # Seg Neutrophils # Man Lymphocytes # (Manual) Monocytes # (Manual) Eosinophils # (Manual) Nucleated RBC % Basophils # (Manual) Heparin Anti-Xa Level ABG pH POC ABG pO2 ABG pO2 ABG HCO3 ABG O2 Saturation ABG Base Excess ABG Hemoglobin ABG Oxyhemoglobin Oxyhemoglobin Sodium Potassium Chloride Carbon Dioxide BUN Creatinine Glucose POC Glucose 150 H 134 H Lactic Acid Calcium Phosphorus Magnesium AST ALT Lactate Dehydrogenase CK-MB (CK-2) C-Reactive Protein NT-Pro-B Natriuret Pep Total Protein Albumin Urine WBC (Auto) 12/16/19 12/16/19 12/16/19 05:46 05:46 11:44 WBC RBC Hgb Hct MCHC RDW Lymph % (Auto) [place] % (Auto) [place] # Eos # [place] # (Auto) Eos # (Auto) Seg Neutrophils % Seg Neuts % (Manual) Baso # (Auto) Lymphocytes % (Manual) Monocytes % (Manual) Eosinophils % (Manual) Basophils % (Manual) Seg Neutrophils # Seg Neutrophils # Man Lymphocytes # (Manual) Monocytes # (Manual) Eosinophils # (Manual) Nucleated RBC % Basophils # (Manual) Heparin Anti-Xa Level 0.20 L ABG pH POC ABG pO2 ABG pO2 ABG HCO3 ABG O2 Saturation ABG Base Excess ABG Hemoglobin ABG Oxyhemoglobin Oxyhemoglobin Sodium Potassium Chloride Carbon Dioxide 31 H BUN Creatinine 0.5 L Glucose 147 H POC Glucose 164 H Lactic Acid Calcium Phosphorus Magnesium AST ALT Lactate Dehydrogenase CK-MB (CK-2) C-Reactive Protein NT-Pro-B Natriuret Pep Total Protein Albumin Urine WBC (Auto) 12/16/19 12/16/19 12/17/19 17:17 23:49 05:30 WBC 13.9 H RBC 3.27 L Hgb 9.4 L Hct 29.2 L MCHC RDW 16.0 H Lymph % (Auto) [place] % (Auto) 8.8 H [place] # Eos # [place] # (Auto) 1.2 H Eos # (Auto) 0.5 H Seg Neutrophils % 70.5 H Seg Neuts % (Manual) Baso # (Auto) 0.2 H Lymphocytes % (Manual) Monocytes % (Manual) Eosinophils % (Manual) Basophils % (Manual) Seg Neutrophils # 9.8 H Seg Neutrophils # Man Lymphocytes # (Manual) Monocytes # (Manual) Eosinophils # (Manual) Nucleated RBC % Basophils # (Manual) Heparin Anti-Xa Level ABG pH POC ABG pO2 ABG pO2 ABG HCO3 ABG O2 Saturation ABG Base Excess ABG Hemoglobin ABG Oxyhemoglobin Oxyhemoglobin Sodium Potassium Chloride Carbon Dioxide BUN Creatinine Glucose POC Glucose 162 H 144 H Lactic Acid Calcium Phosphorus Magnesium AST ALT Lactate Dehydrogenase CK-MB (CK-2) C-Reactive Protein NT-Pro-B Natriuret Pep Total Protein Albumin Urine WBC (Auto) 12/17/19 12/17/19 12/17/19 05:30 06:06 11:50 WBC RBC Hgb Hct MCHC RDW Lymph % (Auto) [place] % (Auto) [place] # Eos # [place] # (Auto) Eos # (Auto) Seg Neutrophils % Seg Neuts % (Manual) Baso # (Auto) Lymphocytes % (Manual) Monocytes % (Manual) Eosinophils % (Manual) Basophils % (Manual) Seg Neutrophils # Seg Neutrophils # Man Lymphocytes # (Manual) Monocytes # (Manual) Eosinophils # (Manual) Nucleated RBC % Basophils # (Manual) Heparin Anti-Xa Level ABG pH POC ABG pO2 ABG pO2 ABG HCO3 ABG O2 Saturation ABG Base Excess ABG Hemoglobin ABG Oxyhemoglobin Oxyhemoglobin Sodium Potassium Chloride 97.4 L Carbon Dioxide 32 H BUN Creatinine 0.5 L Glucose 135 H POC Glucose 151 H 140 H Lactic Acid Calcium Phosphorus Magnesium AST ALT Lactate Dehydrogenase CK-MB (CK-2) C-Reactive Protein NT-Pro-B Natriuret Pep Total Protein Albumin Urine WBC (Auto) 12/17/19 12/17/19 12/18/19 17:50 23:46 05:17 WBC RBC Hgb 8.8 L Hct 28.0 L MCHC RDW Lymph % (Auto) [place] % (Auto) [place] # Eos # [place] # (Auto) Eos # (Auto) Seg Neutrophils % Seg Neuts % (Manual) Baso # (Auto) Lymphocytes % (Manual) Monocytes % (Manual) Eosinophils % (Manual) Basophils % (Manual) Seg Neutrophils # Seg Neutrophils # Man Lymphocytes # (Manual) Monocytes # (Manual) Eosinophils # (Manual) Nucleated RBC % Basophils # (Manual) Heparin Anti-Xa Level ABG pH POC ABG pO2 ABG pO2 ABG HCO3 ABG O2 Saturation ABG Base Excess ABG Hemoglobin ABG Oxyhemoglobin Oxyhemoglobin Sodium Potassium Chloride Carbon Dioxide BUN Creatinine Glucose POC Glucose 158 H 150 H Lactic Acid Calcium Phosphorus Magnesium AST ALT Lactate Dehydrogenase CK-MB (CK-2) C-Reactive Protein NT-Pro-B Natriuret Pep Total Protein Albumin Urine WBC (Auto) 12/18/19 12/18/19 12/18/19 05:17 05:49 11:12 WBC RBC Hgb Hct MCHC RDW Lymph % (Auto) [place] % (Auto) [place] # Eos # [place] # (Auto) Eos # (Auto) Seg Neutrophils % Seg Neuts % (Manual) Baso # (Auto) Lymphocytes % (Manual) Monocytes % (Manual) Eosinophils % (Manual) Basophils % (Manual) Seg Neutrophils # Seg Neutrophils # Man Lymphocytes # (Manual) Monocytes # (Manual) Eosinophils # (Manual) Nucleated RBC % Basophils # (Manual) Heparin Anti-Xa Level 0.16 L ABG pH POC ABG pO2 ABG pO2 ABG HCO3 ABG O2 Saturation ABG Base Excess ABG Hemoglobin ABG Oxyhemoglobin Oxyhemoglobin Sodium Potassium Chloride Carbon Dioxide BUN Creatinine Glucose POC Glucose 127 H 191 H Lactic Acid Calcium Phosphorus Magnesium AST ALT Lactate Dehydrogenase CK-MB (CK-2) C-Reactive Protein NT-Pro-B Natriuret Pep Total Protein Albumin Urine WBC (Auto) 12/18/19 12/18/19 12/19/19 17:03 20:16 00:08 WBC RBC Hgb Hct MCHC RDW Lymph % (Auto) [place] % (Auto) [place] # Eos # [place] # (Auto) Eos # (Auto) Seg Neutrophils % Seg Neuts % (Manual) Baso # (Auto) Lymphocytes % (Manual) Monocytes % (Manual) Eosinophils % (Manual) Basophils % (Manual) Seg Neutrophils # Seg Neutrophils # Man Lymphocytes # (Manual) Monocytes # (Manual) Eosinophils # (Manual) Nucleated RBC % Basophils # (Manual) Heparin Anti-Xa Level ABG pH POC ABG pO2 ABG pO2 ABG HCO3 ABG O2 Saturation ABG Base Excess ABG Hemoglobin ABG Oxyhemoglobin Oxyhemoglobin Sodium Potassium Chloride Carbon Dioxide BUN Creatinine Glucose POC Glucose 133 H 128 H 129 H Lactic Acid Calcium Phosphorus Magnesium AST ALT Lactate Dehydrogenase CK-MB (CK-2) C-Reactive Protein NT-Pro-B Natriuret Pep Total Protein Albumin Urine WBC (Auto) 12/19/19 12/19/19 12/19/19 04:45 04:45 05:35 WBC RBC Hgb Hct MCHC RDW Lymph % (Auto) [place] % (Auto) [place] # Eos # [place] # (Auto) Eos # (Auto) Seg Neutrophils % Seg Neuts % (Manual) Baso # (Auto) Lymphocytes % (Manual) Monocytes % (Manual) Eosinophils % (Manual) Basophils % (Manual) Seg Neutrophils # Seg Neutrophils # Man Lymphocytes # (Manual) Monocytes # (Manual) Eosinophils # (Manual) Nucleated RBC % Basophils # (Manual) Heparin Anti-Xa Level 0.17 L ABG pH POC ABG pO2 ABG pO2 ABG HCO3 ABG O2 Saturation ABG Base Excess ABG Hemoglobin ABG Oxyhemoglobin Oxyhemoglobin Sodium Potassium Chloride Carbon Dioxide BUN Creatinine Glucose POC Glucose 120 H Lactic Acid Calcium Phosphorus Magnesium AST ALT Lactate Dehydrogenase 228 H CK-MB (CK-2) C-Reactive Protein NT-Pro-B Natriuret Pep Total Protein Albumin Urine WBC (Auto) 12/19/19 12/19/19 12/19/19 09:20 11:32 11:32 WBC 14.6 H RBC 3.08 L Hgb 9.0 L Hct 26.8 L MCHC RDW 15.9 H Lymph % (Auto) [place] % (Auto) [place] # Eos # [place] # (Auto) Eos # (Auto) Seg Neutrophils % Seg Neuts % (Manual) 82.0 H Baso # (Auto) Lymphocytes % (Manual) 10.0 L Monocytes % (Manual) Eosinophils % (Manual) Basophils % (Manual) Seg Neutrophils # Seg Neutrophils # Man 12.0 H Lymphocytes # (Manual) Monocytes # (Manual) 0.9 H Eosinophils # (Manual) Nucleated RBC % 1.0 H Basophils # (Manual) Heparin Anti-Xa Level ABG pH 7.451 H POC ABG pO2 ABG pO2 62.6 L ABG HCO3 33.2 H ABG O2 Saturation 93.8 L ABG Base Excess 8.3 H ABG Hemoglobin 8.3 L ABG Oxyhemoglobin Oxyhemoglobin 91.9 L Sodium Potassium Chloride 95.0 L Carbon Dioxide 33 H BUN 22 H Creatinine 0.6 L Glucose 150 H POC Glucose Lactic Acid Calcium Phosphorus Magnesium AST ALT Lactate Dehydrogenase CK-MB (CK-2) C-Reactive Protein NT-Pro-B Natriuret Pep Total Protein 6.2 L Albumin 2.4 L Urine WBC (Auto) 12/19/19 11:56 WBC RBC Hgb Hct MCHC RDW Lymph % (Auto) [place] % (Auto) [place] # Eos # [place] # (Auto) Eos # (Auto) Seg Neutrophils % Seg Neuts % (Manual) Baso # (Auto) Lymphocytes % (Manual) Monocytes % (Manual) Eosinophils % (Manual) Basophils % (Manual) Seg Neutrophils # Seg Neutrophils # Man Lymphocytes # (Manual) Monocytes # (Manual) Eosinophils # (Manual) Nucleated RBC % Basophils # (Manual) Heparin Anti-Xa Level ABG pH POC ABG pO2 ABG pO2 ABG HCO3 ABG O2 Saturation ABG Base Excess ABG Hemoglobin ABG Oxyhemoglobin Oxyhemoglobin Sodium Potassium Chloride Carbon Dioxide BUN Creatinine Glucose POC Glucose 156 H Lactic Acid Calcium Phosphorus Magnesium AST ALT Lactate Dehydrogenase CK-MB (CK-2) C-Reactive Protein NT-Pro-B Natriuret Pep Total Protein Albumin Urine WBC (Auto) Chest x-ray: other (none today) Allied health notes reviewed: nursing
[2019-12-19] MEDS: LORazepam 2 MG/ML VIAL IV PRN ×2 (17:17→21:37)
[2019-12-19] MEDS: POLYETHYLENE GLYCOL 3350 17 GM POWDER PO SCH (21:23)
[2019-12-19] MEDS: QUEtiapine 100 MG TAB PO SCH (21:41)
[2019-12-20] MEDS: INSULIN LISPRO 100 UNIT/ML VIAL 3 mL SUB-Q SCH ×4 (00:13→18:34)
[2019-12-20] MEDS: METOPROLOL TARTRATE 50 MG TAB PO SCH ×3 (05:47→21:38)
[2019-12-20] MEDS: fentaNYL DRIP Premix 2,000 MCG/100 ML BAG IV SCH ×3 (07:57→23:22)
[2019-12-20] MEDS: FAMOTIDINE 20 MG TAB PO SCH ×2 (09:30→21:37)
[2019-12-20] MEDS: DOCUSATE SODIUM 100 MG/10 ML ORAL LIQD FEEDTUBE SCH ×2 (09:30→21:40)
[2019-12-20] MEDS: QUEtiapine 25 MG TAB PO SCH (09:31)
[2019-12-20] MEDS: TAMSULOSIN 0.4 MG CAP PO SCH ×2 (09:31→21:39)
[2019-12-20] MEDS: AMIODARONE 200 MG TAB PO SCH ×2 (09:31→21:38)
--- NOTE | 2019-12-20 09:56 | Progress Note ---
Assessment and Plan Cultures: Blood culture 12/02/2019 negative Blood culture 11/24/2019 negative Urine culture 11/24/2019 negative COVID-19 negative x2 12/04/2019 resp culture: PsA 12/06/2019 blood cultures: No growth today MRSA PCR negative A/P: 64-year-old male past medical history hypertension, COPD, CAD, CHF with reduced ejection fraction admitted with acute hypoxic respiratory failure likely secondary to pneumonia #Sepsis: With intermittent low-grade fever 100 resolved for > 48 hours, likely due to PE/DVT. Procalcitonin improving, from 1.5-->0.6. #Acute hypoxemic respiratory failure: Likely secondary to pneumonia/PE, COVID-19 testing negative x 2. Remains intubated, failed CPAP trial. + R pleural effusion/endobronchial plugging #Bilateral pneumonia: COVID-19 negative twice. Culture growing Pseudomonas, pansensitive. Repeat chest x-ray with persistent right base opacity. CT shows PE. #CHF: per primary team #COPD: per pulmonary #Elevated LFTs: Improving? sepsis. US unremarkable GB #PE/right DVT: on heparin gtt #Urinary retention: Overnight patient did not void, bladder scan showed 700 cc, Hoffman placed 12/15/2019, now removed. #Transient A. fib/chemic cardiomyopathy: Per cardiology Recs: -Agree with bronchoscopy and thoracentesis -Monitor off antibiotics-completed 10-day cefepime course on 12/15/2019 -Primary team considering tracheostomy if not better after bronch and thoracentesis -PE/DVT management per primary team Dr. Saha rounding on Saturday Patsy Dominique MD [facility], [place] [facility] ([facility]) Office [phone] Subjective Date of service: 12/20/19 Principal diagnosis: Ac hypoxemic resp failure; Pneumonia; PUI COVID-19; CHF; COPD; HTN Interval history: Remains intubated no fever on heparin and fentanyl drip Objective - Exam Narrative Exam: Constitutional: Alert intubated FiO2 45/p6 Head, Ears, Nose: Normocephalic, atraumatic. External ears, nose normal Oral: ETT in place, OG tube in place Eyes: Conjunctivae/corneas clear. No icterus. No ptosis. Neck: Supple, no meningeal signs Cardiovascular: RRR Respiratory:CTA sofía GI: Soft, non-tender Musculoskeletal: bilateral hand edema Skin: No rash or abscess Hem/Lymphatic: No palpable cervical or supraclavicular nodes. No lymphangitis Psych: Alert Neurological: Alert Condom catheter in place - Constitutional Vitals: Vital Signs Temp Pulse Resp BP Pulse Ox 98.3 F 80 16 97/79 95 12/20/19 08:00 12/20/19 08:18 12/20/19 08:00 12/20/19 08:18 12/20/19 08:18 Temperature -Last 24 Hours Temperature 98.3 F Temperature 98.8 F Temperature 98.7 F Temperature 98.0 F Temperature 98.8 F Temperature 98.6 F - Labs CBC & Chem 7: 12/19/19 11:32 12/19/19 11:32 Labs: Abnormal lab results 12/19/19 12/19/19 12/19/19 Range/Units 11:32 11:32 11:56 WBC 14.6 H (4.5-11.0) K/mm3 RBC 3.08 L (3.65-5.03) M/mm3 Hgb 9.0 L (11.8-15.2) gm/dl Hct 26.8 L (35.5-45.6) % RDW 15.9 H (13.2-15.2) % Seg Neuts % (Manual) 82.0 H (40.0-70.0) % Lymphocytes % (Manual) 10.0 L (13.4-35.0) % Nucleated RBC % 1.0 H (0.0-0.9) % Seg Neutrophils # Man 12.0 H (1.8-7.7) K/mm3 Monocytes # (Manual) 0.9 H (0.0-0.8) K/mm3 Heparin Anti-Xa Level (0.3-0.7) U.I./ml Chloride 95.0 L (98-107) mmol/L Carbon Dioxide 33 H (22-30) mmol/L BUN 22 H (9-20) mg/dL Creatinine 0.6 L (0.8-1.3) mg/dL Glucose 150 H (75-100) mg/dL POC Glucose 156 H (70-105) Total Protein 6.2 L (6.3-8.2) g/dL Albumin 2.4 L (3.9-5) g/dL 12/19/19 12/20/19 12/20/19 Range/Units 18:17 00:09 05:26 WBC (4.5-11.0) K/mm3 RBC (3.65-5.03) M/mm3 Hgb (11.8-15.2) gm/dl Hct (35.5-45.6) % RDW (13.2-15.2) % Seg Neuts % (Manual) (40.0-70.0) % Lymphocytes % (Manual) (13.4-35.0) % Nucleated RBC % (0.0-0.9) % Seg Neutrophils # Man (1.8-7.7) K/mm3 Monocytes # (Manual) (0.0-0.8) K/mm3 Heparin Anti-Xa Level (0.3-0.7) U.I./ml Chloride (98-107) mmol/L Carbon Dioxide (22-30) mmol/L BUN (9-20) mg/dL Creatinine (0.8-1.3) mg/dL Glucose (75-100) mg/dL POC Glucose 156 H 155 H 137 H (70-105) Total Protein (6.3-8.2) g/dL Albumin (3.9-5) g/dL 12/20/19 Range/Units 06:02 WBC (4.5-11.0) K/mm3 RBC (3.65-5.03) M/mm3 Hgb (11.8-15.2) gm/dl Hct (35.5-45.6) % RDW (13.2-15.2) % Seg Neuts % (Manual) (40.0-70.0) % Lymphocytes % (Manual) (13.4-35.0) % Nucleated RBC % (0.0-0.9) % Seg Neutrophils # Man (1.8-7.7) K/mm3 Monocytes # (Manual) (0.0-0.8) K/mm3 Heparin Anti-Xa Level 0.19 L (0.3-0.7) U.I./ml Chloride (98-107) mmol/L Carbon Dioxide (22-30) mmol/L BUN (9-20) mg/dL Creatinine (0.8-1.3) mg/dL Glucose (75-100) mg/dL POC Glucose (70-105) Total Protein (6.3-8.2) g/dL Albumin (3.9-5) g/dL
--- NOTE | 2019-12-20 10:26 | Progress Note ---
Subjective Date of service: 12/20/19 Principal diagnosis: Ac hypoxemic resp failure; Pneumonia; PUI COVID-19; CHF; COPD; HTN Interval history: Assessment and Plan Transient Afib after CPAP trial currently in sinus rhythm Ischemic Cardiomyopathy, resolving re-echo this presentation reports an LVEF 40-45%. echo 08/2018: decreased LVEF 20-25%. Hx of CAD [facility] 12/2018: mild in-stent restenosis. No significant residual disease. Multifocal pneumonia with intermittent fevers negative COVID-19 test x 2 Respiratory failure Acute PE/DVT on IV heparin Recommendations: Continue amiodarone and metoprolol for suppression of paroxysmal atrial fibrillation. Otherwise, conservative cardiac management. Objective Vital Signs Temp Pulse Pulse Resp Resp BP Pulse Ox 12/20/19 08:18 80 97/79 95 12/20/19 08:00 98.3 F 87 82 16 16 97/79 97 12/20/19 07:31 84 18 105/71 96 12/20/19 07:00 82 16 105/71 97 12/20/19 06:31 84 14 108/72 97 12/20/19 06:00 83 14 108/72 97 12/20/19 05:50 83 16 94 12/20/19 05:47 86 106/72 12/20/19 05:31 86 12 106/72 96 12/20/19 05:00 86 15 106/72 95 12/20/19 04:31 87 15 99/71 94 12/20/19 04:00 86 82 15 16 109/71 93 12/20/19 03:31 87 18 99/71 97 12/20/19 03:17 87 99/71 97 12/20/19 03:02 98.8 F 12/20/19 03:00 86 13 99/71 97 12/20/19 02:31 85 16 95/67 97 12/20/19 02:15 85 12/20/19 02:00 85 14 95/67 99 12/20/19 01:31 80 14 96/68 98 12/20/19 01:00 83 13 96/68 12/20/19 00:31 83 17 87/67 97 12/20/19 00:15 82 82 16 16 94 12/20/19 00:00 82 13 87/67 96 12/19/19 23:31 84 20 112/68 96 12/19/19 23:25 85 112/68 94 12/19/19 23:16 98.7 F 12/19/19 23:05 85 16 112/68 92 12/19/19 23:00 87 18 112/68 92 12/19/19 22:31 91 H 19 114/75 92 12/19/19 22:30 86 18 94 12/19/19 22:00 98 H 20 114/75 92 12/19/19 21:41 122 H 205/124 12/19/19 21:31 115 H 26 H 100/71 96 12/19/19 21:00 86 14 100/71 96 12/19/19 20:31 85 14 101/70 95 12/19/19 20:00 81 14 101/70 12/19/19 19:31 79 14 105/73 96 12/19/19 19:30 98.0 F 81 82 15 16 98 12/19/19 19:00 83 16 105/73 95 12/19/19 18:31 84 14 115/70 94 12/19/19 18:00 84 16 115/70 93 12/19/19 17:31 91 H 19 138/77 92 12/19/19 17:01 33 H 170/127 90 12/19/19 16:31 107 H 26 H 124/83 94 12/19/19 16:00 98.8 F 85 82 11 L 16 124/83 99 12/19/19 15:31 90 14 136/93 98 12/19/19 15:25 84 136/93 99 12/19/19 15:00 92 H 14 136/93 98 12/19/19 14:31 86 14 128/85 98 12/19/19 14:00 88 12 128/85 97 12/19/19 13:31 83 14 135/81 97 12/19/19 13:25 81 135/81 12/19/19 13:00 79 13 135/81 96 12/19/19 12:31 89 16 118/78 99 12/19/19 12:00 98.6 F 84 82 15 16 118/78 98 12/19/19 11:31 82 17 134/95 96 12/19/19 11:01 93 H 14 134/95 97 12/19/19 11:00 89 131/85 98 12/19/19 10:31 85 14 146/104 99 - Physical Examination General: Other (intubated on the vent) HEENT: Positive: PERRL Neck: Positive: neck supple Cardiac: Positive: Reg Rate and Rhythm, S1/S2 Neuro: Positive: Other (Intubated and sedated, on the vent) Abdomen: Positive: Soft Skin: Positive: Clear Extremities: Absent: edema - Labs and Meds Cardiac Enzymes 12/19/19 Range/Units 11:32 AST 21 (5-40) units/L Coagulation 12/19/19 Range/Units 11:32 PT 13.9 (12.2-14.9) Sec. INR 1.06 (0.87-1.13) CBC 12/19/19 Range/Units 11:32 WBC 14.6 H (4.5-11.0) K/mm3 RBC 3.08 L (3.65-5.03) M/mm3 Hgb 9.0 L (11.8-15.2) gm/dl Hct 26.8 L (35.5-45.6) % Plt Count 317 (140-440) K/mm3 Comprehensive Metabolic Panel 12/19/19 Range/Units 11:32 Sodium 137 (137-145) mmol/L Potassium 4.7 (3.6-5.0) mmol/L Chloride 95.0 L (98-107) mmol/L Carbon Dioxide 33 H (22-30) mmol/L BUN 22 H (9-20) mg/dL Creatinine 0.6 L (0.8-1.3) mg/dL Glucose 150 H (75-100) mg/dL Calcium 9.5 (8.4-10.2) mg/dL AST 21 (5-40) units/L ALT 40 (7-56) units/L Alkaline Phosphatase 68 (35-129) units/L Total Protein 6.2 L (6.3-8.2) g/dL Albumin 2.4 L (3.9-5) g/dL - Allied health notes Allied health notes reviewed: nursing
[2019-12-20] MEDS: HEPARIN/ 0.45% NACL DRIP 25,000 UNIT/500 ML BAG IV SCH (13:04)
--- NOTE | 2019-12-20 13:27 | Progress Note ---
Assessment and Plan Assessment and plan: Acute LLL PE -Acute RLE DVT -Persistent fevers; secondary to sepsis and acute PE/DVT -Severe sepsis; secondary to bilateral pneumonia, persistent fevers -Acute hypoxemic respiratory failure, on vent unable to wean -Bilateral pneumonia, community acquired, -Aspiration Pneumonia -Sustained SVT, on amiodarone -Acute on chronic systolic congestive heart failure -History of cerebrovascular accident. -Tobacco use disorder -Alcohol abuse with DT -Acute chronic obstructive pulmonary disease exacerbation. -Hypertension and hypertensive urgency at presentation. -History of arthritis. -Paroxysmal atrial fibrillation -Leukocytosis with possible sepsis. -Lactic acidosis. -Bleeding from ET tube -Oropharyngeal dysphagia -S/P Knee surgery -History of peptic Ulcer Surgery -DVT prophylaxis COVID-19 test; 11/24/2019; negative 11/26/2019; negative Plan Continue ventilatory support Wean as tolerated as per critical care Completed abx, ID following Aspiration precautions Continue amiodarone and metoprolol for suppression of paroxysmal atrial fibrillation. Anticoagulation currently with intravenous heparin. Plan for thoracentesis May need trach and PEG DVT/GI prophy Heparin/Protonix Plan of care reviewed with the patient's nurse Closely monitor the patient and adjust management as needed The high probability of a clinically significant, sudden or life threatening deterioration of the [Respiratory, cardiovascular & neurological] system(s) required my full and direct attention, intervention and personal management. The aggregate critical care time was [33] minutes without overlap. Time includes spent on [x] Data Review and interpretation [x] Patient assessment and monitoring of vital signs [x] Documentation [x] Medication orders and management Brief History Patient is a 64-year-old male with known history of hypertension, COPD, history of coronary artery disease, CHF with ejection fraction of 20 to 25% in August 2018 presenting to the emergency room via EMS complaining of shortness of breath. Patient was found to be hypoxic and in respiratory distress. Patient was placed on CPAP in route to the hospital. Oxygen saturation was said to be 88%. Started on Solu-Medrol, Lasix and magnesium in ED, patient was also found to be lethargic with an oxygen saturation of about 91% on CPAP. He was subsequently intubated. Work-up in the emergency room including chest x-ray reveals bilateral pneumonia. He had an elevated white count of 14 and also had an elevated BNP. Patient to be admitted to the ICU and placed on empiric IV antibiotics for pneumonia. He will also be tested positive for COVID-19 and placed on isolation precautions. Rmains intubated on ventilatory support, sputum cultures positive for Pseudomonas, ID changed antibiotics to cefepime and Vanco. 11/25: Leukocytosis improving. Continue current management anticipate extubation possible today. 11/26. Still intubated. Failed SBT yesterday. Repeat COVID-19 test is negative. 11/27. CT head ordered for possible neuro status change is negative. More responsive as the day progressed as per RN. Chest xray today shows interval improvement. He is still on antibiotics - will complete regimen today. 11/28: Considering difficult extubation and severe cardiomyopathy, will obtain cardiology consult. Aspiration precautions, tube feeds held, continue antibiotics. 11/29: Still with intermittent fever but improving imaging, continue diuresis. 11/30; Extremely agitated when placed on PSV- SVT, hypertension. Patiet acknowledged that he drinks. IV Ativan given, CIWA protocol initiated. 12 lead ordered showed SVT, one dose of amiodarone ordered. continue to follow up cardiology recommendation 12/01: Patient remains on mechanical ventilation, getting SBT trial. Remains in SVT, started on amiodarone drip by cardiology. 12/02; patient is on mechanical ventilation and on spontaneous breathing trial. Cardiology started the patient on PO amiodarone. Patient is on cefepime. 12/03: patient is on mechanical ventilation. Cardiology started the patient on PO amiodarone for SVT. Patient is on cefepime, no fever overnight. 12/04: Patient is sedated and on mechanical ventilation. Patient had fever yesterday afternoon 102.3, ID changed his cefepime to meropenem. Heart rate is controlled, cardiology is following. Patient has paroxysmal atrial fibrillation and on amiodarone and metoprolol, subcu heparin for anticoagulation and will need oral anticoagulation once stable. 12/05: Sputum cultures positive for Pseudomonas, ID following 12/06; patient is febrile T-max 24 hours 102 F ,ID change antibiotics to cefepime and Vancomycin 12/07: resumed care. Na 149 today, start on 1/2 NS. cont current care 12/08: remains in a stable sinus rhythm and stable blood pressure, continue supportive care. wean off vent as tolerated. persistent fever - ordered CTA chest 12/09: noted bloody discharges from ET tube last night. CTA and LE venous doppler positive for acute PE and DVT. resume heparin drip, consult vascular for possible EKOS/ IVC filter. monitor h/h. cont SBT trial, wean off vent as tolerated. called but no answer 12/10: cont heparin drip for acute PE and DVT, follow vascular recommendation. monitor h/h, wean off vent as tolerated 12/11: o/n had bleeding from ET tube, cont to monitor h/h. vascular recommending medical Mx. called ; Nicolle Araiza [phone]. 12/12: H&H remained stable, patient on heparin drip. Discussed with yesterday. Discussed with critical care attending. Patient not tolerating SBT trial. Continue to wean off from vent as tolerated, follow clinically. Tolerating tube feeding 12/13: Continue heparin drip, wean off from vent as tolerated. Discussed with pulmonary attending if no improvement by the end of 3 weeks of intubation patient may need trach and PEG. Continue to provide supportive care, follow CBC and BMP. 12/14: Stop cefepime today, wean off from vent as tolerated. cont Heparin in fusion, while monitoring for bleeding 12/15: Patient is not tolerating SBT trial, becoming apnic on CPAP. May need to place on trach and PEG. Continue heparin drip, monitor off antibiotics 12/16. Still maintained on vent. May need PEG and trach as her has been failed SBTs 12/17. Had low UO overnight. Started on tamsulosin. May need PEG and trach - defer to pulm. 12/18. Plan for US thoracentesis to help with weaning. Remains on heparin drip for VTE. 12/19. Plan for thoracentesis tomorrow. Sedated and intubated History Interval history: No change in medical condition. Still remains intubated. COVID-19 test negative. Hospitalist Physical - Constitutional Vitals: Temp Pulse Resp BP Pulse Ox 97.3 F L 83 14 113/81 96 12/20/19 12:00 12/20/19 13:04 12/20/19 13:00 12/20/19 13:04 12/20/19 13:00 General appearance: Present: well-nourished, other (Intubated. OG tube in place) - EENT Eyes: Present: PERRL - Respiratory Respiratory: bilateral: diminished - Cardiovascular Heart Sounds: Present: S1 & S2 - Extremities Extremity abnormal: edema - Abdominal General gastrointestinal: soft, non-tender, non-distended, normal bowel sounds - Neurologic Neurologic: other (Sedated) HEART Score - HEART Score Troponin: Troponin T < 0.010 ng/mL (0.00-0.029) 11/24/19 02:53 Results - Labs CBC & Chem 7: 12/19/19 11:32 12/19/19 11:32 Labs: Laboratory Last Values WBC 14.6 K/mm3 (4.5-11.0) H 12/19/19 11:32 RBC 3.08 M/mm3 (3.65-5.03) L 12/19/19 11:32 Hgb 9.0 gm/dl (11.8-15.2) L 12/19/19 11:32 Hct 26.8 % (35.5-45.6) L 12/19/19 11:32 MCV 87 fl (84-94) 12/19/19 11:32 MCH 29 pg (28-32) 12/19/19 11:32 MCHC 34 % (32-34) 12/19/19 11:32 RDW 15.9 % (13.2-15.2) H 12/19/19 11:32 Plt Count 317 K/mm3 (140-440) 12/19/19 11:32 Lymph % (Auto) 15.4 % (13.4-35.0) 12/17/19 05:30 [place] % (Auto) 8.8 % (0.0-7.3) H 12/17/19 05:30 Eos % (Auto) 3.8 % (0.0-4.3) 12/17/19 05:30 Baso % (Auto) 1.5 % (0.0-1.8) 12/17/19 05:30 Lymph # (Auto) 2.1 K/mm3 (1.2-5.4) 12/17/19 05:30 [place] # (Auto) 1.2 K/mm3 (0.0-0.8) H 12/17/19 05:30 Eos # (Auto) 0.5 K/mm3 (0.0-0.4) H 12/17/19 05:30 Baso # (Auto) 0.2 K/mm3 (0.0-0.1) H 12/17/19 05:30 Add Manual Diff Complete 12/19/19 11:32 Total Counted 100 12/19/19 11:32 Seg Neutrophils % 70.5 % (40.0-70.0) H 12/17/19 05:30 Seg Neuts % (Manual) 82.0 % (40.0-70.0) H 12/19/19 11:32 Band Neutrophils % 0 % 12/19/19 11:32 Lymphocytes % (Manual) 10.0 % (13.4-35.0) L 12/19/19 11:32 Reactive Lymphs % (Man) 0 % 12/19/19 11:32 Monocytes % (Manual) 6.0 % (0.0-7.3) 12/19/19 11:32 Eosinophils % (Manual) 2.0 % (0.0-4.3) 12/19/19 11:32 Basophils % (Manual) 0 % (0.0-1.8) 12/19/19 11:32 Metamyelocytes % 0 % 12/19/19 11:32 Myelocytes % 0 % 12/19/19 11:32 Promyelocytes % 0 % 12/19/19 11:32 Blast Cells % 0 % 12/19/19 11:32 Nucleated RBC % 1.0 % (0.0-0.9) H 12/19/19 11:32 Seg Neutrophils # 9.8 K/mm3 (1.8-7.7) H 12/17/19 05:30 Seg Neutrophils # Man 12.0 K/mm3 (1.8-7.7) H 12/19/19 11:32 Band Neutrophils # 0.0 K/mm3 12/19/19 11:32 Lymphocytes # (Manual) 1.5 K/mm3 (1.2-5.4) 12/19/19 11:32 Abs React Lymphs (Man) 0.0 K/mm3 12/19/19 11:32 Monocytes # (Manual) 0.9 K/mm3 (0.0-0.8) H 12/19/19 11:32 Eosinophils # (Manual) 0.3 K/mm3 (0.0-0.4) 12/19/19 11:32 Basophils # (Manual) 0.0 K/mm3 (0.0-0.1) 12/19/19 11:32 Metamyelocytes # 0.0 K/mm3 12/19/19 11:32 Myelocytes # 0.0 K/mm3 12/19/19 11:32 Promyelocytes # 0.0 K/mm3 12/19/19 11:32 Blast Cells # 0.0 K/mm3 12/19/19 11:32 WBC Morphology Not Reportable 12/19/19 11:32 Hypersegmented Neuts Not Reportable 12/19/19 11:32 Hyposegmented Neuts Not Reportable 12/19/19 11:32 Hypogranular Neuts Not Reportable 12/19/19 11:32 Smudge Cells Not Reportable 12/19/19 11:32 Toxic Granulation Not Reportable 12/19/19 11:32 Toxic Vacuolation Not Reportable 12/19/19 11:32 Dohle Bodies Not Reportable 12/19/19 11:32 Pelger-Huet Anomaly Not Reportable 12/19/19 11:32 Hector Rods Not Reportable 12/19/19 11:32 Platelet Estimate Consistent w auto 12/19/19 11:32 Clumped Platelets Not Reportable 12/19/19 11:32 Plt Clumps, EDTA Not Reportable 12/19/19 11:32 Large Platelets Not Reportable 12/19/19 11:32 Giant Platelets Not Reportable 12/19/19 11:32 Platelet Satelliting Not Reportable 12/19/19 11:32 Plt Morphology Comment Not Reportable 12/19/19 11:32 RBC Morphology Not Reportable 12/19/19 11:32 Dimorphic RBCs Not Reportable 12/19/19 11:32 Polychromasia Not Reportable 12/19/19 11:32 Hypochromasia Few 12/19/19 11:32 Poikilocytosis Not Reportable 12/19/19 11:32 Anisocytosis 1+ 12/19/19 11:32 Microcytosis Few 12/19/19 11:32 Macrocytosis Few 12/19/19 11:32 Spherocytes Not Reportable 12/19/19 11:32 Pappenheimer Bodies Not Reportable 12/19/19 11:32 Sickle Cells Not Reportable 12/19/19 11:32 Target Cells Not Reportable 12/19/19 11:32 Tear Drop Cells Not Reportable 12/19/19 11:32 Ovalocytes Not Reportable 12/19/19 11:32 Helmet Cells Not Reportable 12/19/19 11:32 [place] Bodies Not Reportable 12/19/19 11:32 [place] Rings Not Reportable 12/19/19 11:32 [place] Cells Not Reportable 12/19/19 11:32 Bite Cells Not Reportable 12/19/19 11:32 Crenated Cell Not Reportable 12/19/19 11:32 Elliptocytes Not Reportable 12/19/19 11:32 Acanthocytes (Spur) Not Reportable 12/19/19 11:32 Rouleaux Not Reportable 12/19/19 11:32 Hemoglobin C Crystals Not Reportable 12/19/19 11:32 Schistocytes Not Reportable 12/19/19 11:32 Malaria parasites Not Reportable 12/19/19 11:32 [place] Bodies Not Reportable 12/19/19 11:32 Hem Pathologist Commnt No 12/19/19 11:32 APTT 28.6 Sec. (24.2-36.6) 12/07/19 14:51 PT 13.9 Sec. (12.2-14.9) 12/19/19 11:32 INR 1.06 (0.87-1.13) 12/19/19 11:32 Heparin Anti-Xa Level 0.19 U.I./ml (0.3-0.7) L 12/20/19 06:02 POC ABG pCO2 45.1 mmHg (32.0-48.0) 12/02/19 12:58 POC ABG pO2 78.1 mmHg (83-108) L 12/02/19 12:58 POC ABG HCO3 29.9 12/02/19 12:58 POC ABG Base Excess 5.0 12/02/19 12:58 ABG pH 7.451 pH Units (7.350-7.450) H 12/19/19 09:20 ABG pCO2 48.7 mm Hg 12/19/19 09:20 ABG Oxyhemoglobin 94.7 (94-98) 12/02/19 12:58 ABG pO2 62.6 mm Hg (80.0-90.0) L 12/19/19 09:20 ABG HCO3 33.2 mmol/L (20.0-26.0) H 12/19/19 09:20 ABG O2 Saturation 93.8 % (95.0-99.0) L 12/19/19 09:20 ABG O2 Content 10.8 (0.0-44) 12/19/19 09:20 ABG Base Excess 8.3 mmol/L (-2.0-3.0) H 12/19/19 09:20 ABG Hemoglobin 8.3 gm/dl (14.0-18.0) L 12/19/19 09:20 ABG Carboxyhemoglobin 1.6 % (0.0-5.0) 12/19/19 09: ABG Methemoglobin 0.4 % (0.0-1.5) 12/19/19 09: Carboxyhemoglobin 1.3 (0.5-1.5) 12/02/19 12:58 Oxyhemoglobin 91.9 % (95.0-99.0) L 12/19/19 09:20 FiO2 50 % 12/19/19 09:20 Sodium 137 mmol/L (137-145) 12/19/19 11:32 Potassium 4.7 mmol/L (3.6-5.0) 12/19/19 11:32 Chloride 95.0 mmol/L (98-107) L 12/19/19 11:32 Carbon Dioxide 33 mmol/L (22-30) H 12/19/19 11:32 Anion Gap 14 mmol/L 12/19/19 11:32 BUN 22 mg/dL (9-20) H 12/19/19 11:32 Creatinine 0.6 mg/dL (0.8-1.3) L 12/19/19 11:32 Estimated GFR > 60 ml/min 12/19/19 11:32 BUN/Creatinine Ratio 37 % 12/19/19 11:32 Glucose 150 mg/dL (75-100) H 12/19/19 11:32 POC Glucose 105 (70-105) 12/20/19 11:58 Lactic Acid 2.50 mmol/L (0.7-2.0) H* 11/24/19 10:37 Phosphorus 2.60 mg/dL (2.5-4.5) 12/06/19 05:24 Magnesium 2.60 mg/dL (1.7-2.3) H 12/07/19 12:41 Calcium 9.5 mg/dL (8.4-10.2) 12/19/19 11:32 Ferritin 84.4 ng/mL (30.0-300.0) 11/24/19 04:53 Direct Bilirubin < 0.2 mg/dL (0-0.2) 12/08/19 03:55 Indirect Bilirubin 0.2 mg/dL 12/08/19 03:55 Total Bilirubin 0.30 mg/dL (0.1-1.2) 12/19/19 11:32 Total Creatine Kinase 141 units/L (55-170) 11/24/19 02:53 CK-MB (CK-2) 4.3 ng/mL (0.0-4.0) H 11/24/19 02:53 AST 21 units/L (5-40) 12/19/19 11:32 ALT 40 units/L (7-56) 12/19/19 11:32 CK-MB (CK-2) Rel Index 3.0 (0-4) 11/24/19 02:53 Alkaline Phosphatase 68 units/L (35-129) 12/19/19 11:32 Troponin T < 0.010 ng/mL (0.00-0.029) 11/24/19 02:53 C-Reactive Protein 8.50 mg/dL (0.00-1.30) H 12/01/19 12:16 NT-Pro-B Natriuret Pep 286.1 pg/mL (0-900) 11/29/19 15:37 Lactate Dehydrogenase 228 units/L (91-180) H 12/19/19 04:45 Total Protein 6.2 g/dL (6.3-8.2) L 12/19/19 11:32 Albumin 2.4 g/dL (3.9-5) L 12/19/19 11:32 Albumin/Globulin Ratio 0.6 % 12/19/19 11:32 Procalcitonin 0.67 ng/mL (<0.15) 12/07/19 12:41 Urine Color [place] (Yellow) 12/03/19 06:03 Urine Turbidity Clear (Clear) 12/03/19 06:03 Urine pH 5.0 (5.0-7.0) 12/03/19 06:03 Ur Specific [place] 1.030 (1.003-1.030) 12/03/19 06:03 Urine Protein <15 mg/dl mg/dL (Negative) 12/03/19 06:03 Urine Glucose (UA) Neg mg/dL (Negative) 12/03/19 06:03 Urine Ketones Neg mg/dL (Negative) 12/03/19 06:03 Urine Blood Neg (Negative) 12/03/19 06:03 Urine Nitrite Neg (Negative) 12/03/19 06:03 Urine Bilirubin Neg (Negative) 12/03/19 06:03 Urine Urobilinogen 4.0 mg/dL (<2.0) 12/03/19 06:03 Ur Leukocyte Esterase Neg (Negative) 12/03/19 06:03 Urine WBC (Auto) 8.0 /HPF (0.0-6.0) H 12/03/19 06:03 Urine RBC (Auto) 2.0 /HPF (0.0-6.0) 12/03/19 06:03 Urine Bacteria (Auto) 1+ /HPF (Negative) 12/03/19 06:03 Urine Mucus 1+ /HPF 12/03/19 06:03 Vancomycin Trough 14.2 ug/mL (5.0-20.0) 12/13/19 15:01 Coronavirus (PCR) Negative (Negative) 11/26/19 08:26 - Diagnostic Impressions Diagnostic Impressions: Echocardiogram 11/29/19 07:37 Transthoracic Echocardiogram Indication: CHF BP: 116/72 HR: 33 Conclusions *The study is technically limited due to poor acoustic windows. *Global left ventricular systolic function is normal. *The estimated ejection fraction is 50-55%. *Mild concentric left ventricular hypertrophy is observed. *There is trace of mitral regurgitation. *There is mild tricuspid regurgitation. Findings Procedure Info: The study quality is poor. The study is technically limited due to poor acoustic windows. The study is technically limited due to patient body habitus. Left Ventricle: The left ventricular chamber size is normal. Mild concentric left ventricular hypertrophy is observed. Global left ventricular systolic function is normal. The estimated ejection fraction is 50-55%. Left Atrium: The left atrial chamber size is normal. Right Ventricle: The right ventricular cavity size is normal. Right Atrium: The right atrial cavity size is normal. Aortic Valve: The aortic valve leaflets are moderately thickened. There is trace of aortic regurgitation. There is no evidence of aortic stenosis. Mitral Valve: The mitral valve leaflets are mildly thickened. There is trace of mitral regurgitation. There is no evidence of mitral stenosis. Tricuspid Valve: There is mild tricuspid regurgitation. No pulmonary hypertension is noted. Pulmonic Valve: There is trace pulmonic regurgitation. Pericardium: There is no pericardial effusion. Aorta: There is no dilatation of the aortic root. Venous: The inferior vena cava appears normal in size. Contrast: Definity was used to optimize study. Intravenous contrast was used to enhance endocardial border definition. Measurements Chambers 2D Name Value Normal Range Ao root diameter (2D) 3.4 cm (2 - 3.7) Aortic Valve Name Value Normal Range AV Vmax 0.98 m/sec - AV VTI 16.76 cm - AV peak gradient 3.83 mmHg - AV mean gradient 2.57 mmHg - LVOT diameter 3.11 cm - LVOT Vmax 0.68 m/sec - LVOT VTI 11.52 cm - LVOT peak gradient 1.84 mmHg - LVOT mean gradient 1.27 mmHg - SV LVOT 87.31 ml - MALOU (continuity Vmax) 5.24 cm2 - MALOU (continuity VTI) 5.21 cm2 - Tricuspid Valve Name Value Normal Range IVC diameter 2.24 cm (1.2 - 2.3) [place]/IV: Voiding Method Indwelling Catheter IV Catheter Type [Right Upper INT / Saline Lock arm] IV Catheter Type [Left Upper Mid-line arm] IV Catheter Type [Left Forearm Peripheral IV ] IV Catheter Type [Left Hand] INT / Saline Lock IV Catheter Type [Left Wrist] INT / Saline Lock IV Catheter Type [Right INT / Saline Lock Antecubital] Active Medications - Current Medications Current Medications: Generic Name Dose Route Start Last Admin Trade Name Freq PRN Reason Stop Dose Admin Acetaminophen 650 mg 11/25/19 17:27 12/16/19 00:29 Tylenol FEEDTUBE 650 mg Q6H PRN Administration Pain, Mild (1-3) Amiodarone HCl 200 mg 12/04/19 14:00 12/20/19 09:31 Cordarone PO 200 mg BID CAR Administration Lipase/Protease/Amylase 1 each 12/08/19 12:[address] 10,500 Unit FEEDTUBE PRN PRN For Clogged Feeding Tube Docusate Sodium 100 mg 12/02/19 22:00 12/20/19 09:30 Colace FEEDTUBE 100 mg BID CAR Administration Famotidine 20 mg 11/25/19 10:00 12/20/19 09:30 Pepcid PO 20 mg BID CAR Administration Fentanyl 50 mcg 11/24/19 09:55 Sublimaze IV Q10MIN PRN ANALGESIA Haloperidol Lactate 5 mg 12/01/19 10:23 Haldol IV Q1H PRN Unrespon. to mult. doses BZD's Hydrophilic Ointment 1 applic 11/24/19 02:23 Vaseline Lip Therapy TP Q2HR PRN Dry Lips Fentanyl Citrate 2,000 mcg in 100 mls @ 5.67 mls/hr 11/24/19 10:00 12/20/19 07:57 Fentanyl Drip Premix IV 2 mcg/kg/hr TITR CAR 11.34 mls/hr Administration Protocol 1 MCG/KG/HR Propofol 1,000 mg in 100 mls @ 3.402 mls/hr 11/28/19 17:25 Diprivan 10 Mg/Ml IV TITR CAR Protocol 5 MCG/KG/MIN Heparin Sodium/Sodium Chloride 25,000 unit in 500 mls @ 30 mls/hr 12/10/19 19:00 12/20/19 13:04 Heparin/ 0.45% Nacl-25,000 Unit/500 Ml IV 1,500 units/hr TITR CAR 30 mls/hr Administration Protocol 1,500 UNITS/HR Insulin Human Lispro 0 unit 12/05/19 19:00 12/20/19 13:13 Humalog SUB-Q 1 unit Q6H CAR Administration Protocol Lorazepam 2 mg 12/01/19 10:23 12/17/19 21:43 Ativan IV 2 mg Q1H PRN Administration CIWA-Ar 8-15 Lorazepam 4 mg 12/01/19 10:23 12/19/19 21:37 Ativan IV 4 mg Q1H PRN Administration CIWA-Ar 16-25 Lorazepam 4 mg 12/01/19 10:23 12/18/19 11:14 Ativan IV 4 mg Q15MIN PRN Administration CIWA-Ar >25 Metoprolol Tartrate 50 mg 12/07/19 14:00 12/20/19 13:04 Metoprolol PO 50 mg Q8HR CAR Administration Multi-Ingred Cream/Lotion/Oil/Oint 1 applic 11/24/19 02:23 Artificial Tears Ophth Oint OU Q4HR PRN Dry Eye(s) Ondansetron HCl 4 mg 11/24/19 05:31 12/14/19 20:00 Zofran IV 4 mg Q8H PRN Administration Nausea And Vomiting Polyethylene Glycol 17 gm 12/04/19 22:00 12/19/19 21:23 Miralax 3350 PO Not Given QHS CAR Quetiapine Fumarate 50 mg 12/07/19 13:00 12/20/19 09:31 Seroquel PO 50 mg DAILY CAR Administration Quetiapine Fumarate 200 mg 12/15/19 22:00 12/19/19 21:41 Seroquel PO 200 mg QHS CAR Administration Simple Syrup 15 ml 12/08/19 12:07 Simple Syrup FEEDTUBE PRN PRN Hypoglycemia Simple Syrup 30 ml 12/08/19 12:07 Simple Syrup FEEDTUBE PRN PRN Hypoglycemia Sodium Bicarbonate 325 mg 12/08/19 12:07 Sodium Bicarbonate FEEDTUBE PRN PRN For Clogged Feeding Tube Sodium Chloride 10 ml 11/24/19 10:00 12/20/19 09:30 Sodium Chloride Flush Syringe 10 Ml IV 10 ml BID CAR Administration Sodium Chloride 10 ml 11/24/19 05:31 Sodium Chloride Flush Syringe 10 Ml IV PRN PRN LINE FLUSH Tamsulosin HCl 0.4 mg 12/18/19 13:00 12/20/19 09:31 Flomax PO 0.4 mg QDAY CAR Administration Nutrition/Malnutrition Assess - Dietary Evaluation Nutrition/Malnutrition Findings: Nutrition Notes Start: 11/24/19 12:22 Freq: Status: Active Protocol: Document 12/18/19 13:21 [email or web address] (Rec: 12/18/19 13:50 [email or web address]) Co-Sign 12/18/19 13:21 LP Nutrition Notes Initial or Follow up Reassessment Current Diagnosis Coronary Artery Disease,Heart Failure,Respiratory Failure, Stroke,Hyperlipidemia Current Diet TF Vital HP 65ml/hr Labs/Tests Reviewed Pertinent Medications Humalog Height 6 ft 2 in Weight 119.9 kg [place] Body Weight (kg) 86.36 BMI 33.9 Weight change and time frame Wt change noted Weight Status Obese Subjective/Other Information F/U for stable TF. TF running at 65ml/hr. Unable to reach RN x2. Percent of energy/protein needs met: 100%/65% Burn Absent Trauma Absent Current % PO Negligible Minimum of two criteria No physical signs of malnutrition Fluid Accumulation Mild (non-severe) #1 Nutrition Diagnosis Inadequate oral intake Diagnosis Progress(for reassessment Continues documentation) Is patient on ventilator? Yes Is Patient Ambulatory and/or Out of Bed No REE-([place] [facility]-confined to bed) 2481.108 Kcal/Kg value to use for calculation 13 Approximate Energy Requirements Using 1559 kcal/Kg Calculation Used for Recommendations Kcal/kg Additional Notes Protein needs 173g (greater than 2g/kg IBW) Fluid needs 1.5-1.9L Nutrition Intervention Change Diet Order: Continue TF Nutrition Support: Vital HP at 65ml/hr Flush 100ml q4h Hypernatermia 250ml q4h Kcal 1,560 Protein (gm) 114 Fluid (mL) 1,304 Goal #1 TF meets at least 80% of energy and protein needs. Goal #2 TF tolerance Anticipated Discharge Needs: unable to determine at this time Follow-Up By: 12/22/19 Additional Comments F/u for stable TF
--- NOTE | 2019-12-20 15:23 | Progress Note ---
Assessment and Plan Acute hypoxemic respiratory failure Bilateral pneumonia, community acquired. Acute LLL branch P.E. Acute DVT Person under investigation for COVID-19 infection. Acute congestive heart failure exacerbation. History of cerebrovascular accident. Acute chronic obstructive pulmonary disease exacerbation. Hypertension and hypertensive urgency at presentation. History of arthritis. Leukocytosis. Lactic acidosis. Oropharyngeal dysphagia - increased Flomax dose to 0.8 mg qhs - continue therapeutic anticoagulation with IV heprin (hold at 0600 am for thoracentesis) - tentatively to get US thoracentesis for R. Pleural Effusion - bronchoscopy if no re-expansion post thoracentesis - Surgery evaluation ongoing for tracheostomy (discussed indications with his ) - follow BAL studies (none in chart yet) - continue daily SAT's and SBT assessment as tolerated - continue care as below otherwise; - continue low dose seroquel - COVID isolation per facility protocol - free water for hypernatremia - continue diuresis while following electrolytes / I's & O's - continue to wean oxygen for O2 sat's > 92% - continue bronchodilators with pulmonary hygiene per RT - VAP bundle addressed (Aspiration precautions, HOB >40) - continue to wean per pulmonary driven protocols - sedation target is RASS 0 to -1 - continue prn analgesia per CPOT score - follow clinically re: fever curves / trend WBC - Avoid delirium (no benzodiazepines if they can be avoided) - Maintain sleep-wake cycle - enteral nutrition at goal rate as tolerated - continue accucheck's with glycemic control per SSI for target blood glucose goal of 140-180 mg/dL while critically ill; Avoid hypoglycemia - for VTE he is on IV Heparin - continue stress ulcer prophylaxis with Famotidine - continue mobility protocols for pressure ulcer prophylaxis - continue fall precautions - continue wound care management per RN / WCT - Supportive transfusions to keep HgB>7g/dL - CXR's and ABG's prn - Continue to monitor neurologic function - Continue chronic home medications - Continue all supportive care ........ re-evaluate in am & prn CONDITION: CRITICAL PROGNOSIS: GUARDED CODE STATUS: FULL CODE The high probability of a clinically significant, sudden or life threatening deterioration of the [Respiratory, cardiovascular & neurological] system(s) required my full and direct attention, intervention and personal management. The aggregate critical care time was [32] minutes without overlap. Time includes spent on [x] Data Review and interpretation [x] Patient assessment and monitoring of vital signs [x] Documentation [x] Medication orders and management Subjective Date of service: 12/20/19 Principal diagnosis: Ac hypoxemic resp failure; Pneumonia; PUI COVID-19; CHF; C OPD; HTN Interval history: Patient is seen today for: Acute hypoxemic respiratory failure; Adan. Pneumonia (CAP); PUI COVID-19 infection; AE-CHF; AE-COPD; H/O CVA; HTN Seen and examined at bedside; 24 hour events reviewed; nursing and respiratory c are staff consulted; no adverse overnight events reported to me; resting peacefully in bed; remains on MVS; per RN still with urinary retention and requiring straight catheterization today; AMS is persistent Objective Vital Signs - 12hr 12/20/19 12/20/19 12/20/19 03:31 04:00 04:31 Temperature Pulse Rate 87 86 87 Pulse Rate [ 82 From Monitor] Respiratory 18 15 15 Rate Respiratory 16 Rate [Chest] Blood Pressure 99/71 109/71 99/71 O2 Sat by Pulse 97 93 94 Oximetry 12/20/19 12/20/19 12/20/19 05:00 05:31 05:47 Temperature Pulse Rate 86 86 86 Pulse Rate [ From Monitor] Respiratory 15 12 Rate Respiratory Rate [Chest] Blood Pressure 106/72 106/72 106/72 O2 Sat by Pulse 95 96 Oximetry 12/20/19 12/20/19 12/20/19 05:50 06:00 06:31 Temperature Pulse Rate 83 83 84 Pulse Rate [ From Monitor] Respiratory 16 14 14 Rate Respiratory Rate [Chest] Blood Pressure 108/72 108/72 O2 Sat by Pulse 94 97 97 Oximetry 12/20/19 12/20/19 12/20/19 07:00 07:31 08:00 Temperature 98.3 F Pulse Rate 82 84 85 Pulse Rate [ 82 From Monitor] Respiratory 16 18 16 Rate Respiratory 16 Rate [Chest] Blood Pressure 105/71 105/71 97/79 O2 Sat by Pulse 97 96 97 Oximetry 12/20/19 12/20/19 12/20/19 08:18 08:31 09:00 Temperature Pulse Rate 80 82 86 Pulse Rate [ From Monitor] Respiratory 17 15 Rate Respiratory Rate [Chest] Blood Pressure 97/79 97/79 97/79 O2 Sat by Pulse 95 97 97 Oximetry 09/27/20 09/27/20 09/27/20 09:31 10:00 10:31 Temperature Pulse Rate 84 84 83 Pulse Rate [ From Monitor] Respiratory 16 13 17 Rate Respiratory Rate [Chest] Blood Pressure 105/71 107/75 107/75 O2 Sat by Pulse 97 97 Oximetry 12/20/19 12/20/19 12/20/19 11:00 11:31 12:00 Temperature 97.3 F L Pulse Rate 85 84 82 Pulse Rate [ 85 From Monitor] Respiratory 16 14 12 Rate Respiratory 16 Rate [Chest] Blood Pressure 109/73 109/73 108/72 O2 Sat by Pulse 98 98 98 Oximetry 12/20/19 12/20/19 12/20/19 12:10 12:31 13:00 Temperature Pulse Rate 84 84 86 Pulse Rate [ From Monitor] Respiratory 13 14 Rate Respiratory Rate [Chest] Blood Pressure 108/72 108/72 113/81 O2 Sat by Pulse 98 95 96 Oximetry 12/20/19 13:04 Temperature Pulse Rate 83 Pulse Rate [ From Monitor] Respiratory Rate Respiratory Rate [Chest] Blood Pressure 113/81 O2 Sat by Pulse Oximetry Constitutional: agitated, appears uncomfortable, other (elderly and obese male, normocephalic with mildly increased respiratory effort at rest on MVS) Eyes: non-icteric ENT: oropharynx moist, other (ETT 24 cm JASON) Neck: supple, no JVD Effort: very labored Ascultation: Bilateral: diminished breath sounds (bases R>L), rhonchi Percussion: Bilateral: not dull Cardiovascular: irregular rhythm Gastrointestinal: normoactive bowel sounds, soft, non-tender, non-distended Integumentary: normal Extremities: no cyanosis, no edema, pulses normal, no ischemia or petechiae Neurologic: non-focal exam (moves all extremities with extreme agitation), pupils equal and round, motor strength normal and, other (sedated lightly) Psychiatric: other (unable to assesds re: AMS) CBC and BMP: 12/19/19 11:32 12/19/19 11:32 ABG, PT/INR, D-dimer: ABG POC ABG pCO2 45.1 mmHg (32.0-48.0) 12/02/19 12:58 POC ABG pO2 78.1 mmHg (83-108) L 12/02/19 12:58 POC ABG HCO3 29.9 12/02/19 12:58 ABG pH 7.451 pH Units (7.350-7.450) H 12/19/19 09:20 ABG pCO2 48.7 mm Hg 12/19/19 09:20 ABG pO2 62.6 mm Hg (80.0-90.0) L 12/19/19 09:20 ABG O2 Saturation 93.8 % (95.0-99.0) L 12/19/19 09:20 PT/INR, D-dimer PT 13.9 Sec. (12.2-14.9) 12/19/19 11:32 INR 1.06 (0.87-1.13) 12/19/19 11:32 Abnormal lab findings: Abnormal Labs 11/24/19 11/24/19 11/24/19 02:53 02:53 03:45 WBC 14.3 H RBC Hgb Hct MCHC RDW 17.2 H Lymph % (Auto) Elbert % (Auto) Elbert # Eos # Elbert # (Auto) Eos # (Auto) Seg Neutrophils % Seg Neuts % (Manual) Baso # (Auto) Lymphocytes % (Manual) Monocytes % (Manual) Eosinophils % (Manual) Basophils % (Manual) Seg Neutrophils # Seg Neutrophils # Man 8.3 H Lymphocytes # (Manual) Monocytes # (Manual) 0.9 H Eosinophils # (Manual) Nucleated RBC % Basophils # (Manual) Heparin Anti-Xa Level ABG pH 7.313 L POC ABG pO2 ABG pO2 102.8 H ABG HCO3 ABG O2 Saturation ABG Base Excess -2.9 L ABG Hemoglobin ABG Oxyhemoglobin Oxyhemoglobin 93.9 L Sodium Potassium Chloride Carbon Dioxide BUN Creatinine Glucose 195 H POC Glucose Lactic Acid Calcium Phosphorus Magnesium AST ALT Lactate Dehydrogenase CK-MB (CK-2) 4.3 H C-Reactive Protein NT-Pro-B Natriuret Pep 1181 H Total Protein Albumin Urine WBC (Auto) 11/24/19 11/24/19 11/24/19 04:53 04:53 10:37 WBC RBC Hgb Hct MCHC RDW Lymph % (Auto) Elbert % (Auto) Elbert # Eos # Elbert # (Auto) Eos # (Auto) Seg Neutrophils % Seg Neuts % (Manual) Baso # (Auto) Lymphocytes % (Manual) Monocytes % (Manual) Eosinophils % (Manual) Basophils % (Manual) Seg Neutrophils # Seg Neutrophils # Man Lymphocytes # (Manual) Monocytes # (Manual) Eosinophils # (Manual) Nucleated RBC % Basophils # (Manual) Heparin Anti-Xa Level ABG pH POC ABG pO2 ABG pO2 ABG HCO3 ABG O2 Saturation ABG Base Excess ABG Hemoglobin ABG Oxyhemoglobin Oxyhemoglobin Sodium Potassium Chloride Carbon Dioxide BUN Creatinine Glucose 162 H POC Glucose Lactic Acid 2.40 H* 2.50 H* Calcium Phosphorus Magnesium AST ALT Lactate Dehydrogenase 240 H CK-MB (CK-2) C-Reactive Protein NT-Pro-B Natriuret Pep Total Protein Albumin Urine WBC (Auto) 11/24/19 11/24/19 11/24/19 12:21 14:50 19:54 WBC RBC Hgb Hct MCHC RDW Lymph % (Auto) Elbert % (Auto) Elbert # Eos # Elbert # (Auto) Eos # (Auto) Seg Neutrophils % Seg Neuts % (Manual) Baso # (Auto) Lymphocytes % (Manual) Monocytes % (Manual) Eosinophils % (Manual) Basophils % (Manual) Seg Neutrophils # Seg Neutrophils # Man Lymphocytes # (Manual) Monocytes # (Manual) Eosinophils # (Manual) Nucleated RBC % Basophils # (Manual) Heparin Anti-Xa Level ABG pH POC ABG pO2 ABG pO2 ABG HCO3 ABG O2 Saturation ABG Base Excess ABG Hemoglobin ABG Oxyhemoglobin Oxyhemoglobin Sodium Potassium Chloride Carbon Dioxide BUN Creatinine Glucose POC Glucose 145 H 143 H 124 H Lactic Acid Calcium Phosphorus Magnesium AST ALT Lactate Dehydrogenase CK-MB (CK-2) C-Reactive Protein NT-Pro-B Natriuret Pep Total Protein Albumin Urine WBC (Auto) 11/25/19 11/25/19 11/25/19 00:18 03:18 05:11 WBC 13.7 H RBC Hgb Hct MCHC RDW 17.1 H Lymph % (Auto) 10.8 L Elbert % (Auto) 8.7 H Elbert # 1.2 H Eos # Elbert # (Auto) Eos # (Auto) Seg Neutrophils % 80.2 H Seg Neuts % (Manual) Baso # (Auto) Lymphocytes % (Manual) Monocytes % (Manual) Eosinophils % (Manual) Basophils % (Manual) Seg Neutrophils # 11.0 H Seg Neutrophils # Man Lymphocytes # (Manual) Monocytes # (Manual) Eosinophils # (Manual) Nucleated RBC % Basophils # (Manual) Heparin Anti-Xa Level ABG pH 7.333 L POC ABG pO2 ABG pO2 61.2 L ABG HCO3 ABG O2 Saturation 90.2 L ABG Base Excess ABG Hemoglobin 13.7 L ABG Oxyhemoglobin Oxyhemoglobin 88.2 L Sodium Potassium Chloride Carbon Dioxide BUN Creatinine Glucose POC Glucose 109 H Lactic Acid Calcium Phosphorus Magnesium AST ALT Lactate Dehydrogenase CK-MB (CK-2) C-Reactive Protein NT-Pro-B Natriuret Pep Total Protein Albumin Urine WBC (Auto) 11/25/19 11/25/19 11/26/19 05:11 11:40 03:12 WBC RBC Hgb Hct MCHC RDW Lymph % (Auto) Elbert % (Auto) Elbert # Eos # Elbert # (Auto) Eos # (Auto) Seg Neutrophils % Seg Neuts % (Manual) Baso # (Auto) Lymphocytes % (Manual) Monocytes % (Manual) Eosinophils % (Manual) Basophils % (Manual) Seg Neutrophils # Seg Neutrophils # Man Lymphocytes # (Manual) Monocytes # (Manual) Eosinophils # (Manual) Nucleated RBC % Basophils # (Manual) Heparin Anti-Xa Level ABG pH POC ABG pO2 ABG pO2 155.1 H ABG HCO3 27.8 H ABG O2 Saturation ABG Base Excess ABG Hemoglobin 12.2 L ABG Oxyhemoglobin Oxyhemoglobin Sodium Potassium Chloride Carbon Dioxide BUN 23 H Creatinine Glucose 110 H POC Glucose 108 H Lactic Acid Calcium Phosphorus Magnesium AST ALT Lactate Dehydrogenase CK-MB (CK-2) C-Reactive Protein NT-Pro-B Natriuret Pep Total Protein Albumin Urine WBC (Auto) 11/26/19 11/26/19 11/26/19 06:17 10:43 10:43 WBC 11.4 H RBC Hgb Hct MCHC RDW 17.1 H Lymph % (Auto) Elbert % (Auto) Elbert # Eos # Elbert # (Auto) Eos # (Auto) Seg Neutrophils % Seg Neuts % (Manual) Baso # (Auto) Lymphocytes % (Manual) Monocytes % (Manual) Eosinophils % (Manual) Basophils % (Manual) Seg Neutrophils # Seg Neutrophils # Man Lymphocytes # (Manual) Monocytes # (Manual) Eosinophils # (Manual) Nucleated RBC % Basophils # (Manual) Heparin Anti-Xa Level ABG pH POC ABG pO2 ABG pO2 ABG HCO3 ABG O2 Saturation ABG Base Excess ABG Hemoglobin ABG Oxyhemoglobin Oxyhemoglobin Sodium Potassium Chloride Carbon Dioxide BUN 29 H Creatinine Glucose POC Glucose 107 H Lactic Acid Calcium Phosphorus Magnesium AST ALT Lactate Dehydrogenase CK-MB (CK-2) C-Reactive Protein NT-Pro-B Natriuret Pep Total Protein Albumin Urine WBC (Auto) 11/26/19 11/27/19 11/27/19 17:11 01:53 04:11 WBC RBC Hgb Hct MCHC RDW Lymph % (Auto) Elbert % (Auto) Elbert # Eos # Elbert # (Auto) Eos # (Auto) Seg Neutrophils % Seg Neuts % (Manual) Baso # (Auto) Lymphocytes % (Manual) Monocytes % (Manual) Eosinophils % (Manual) Basophils % (Manual) Seg Neutrophils # Seg Neutrophils # Man Lymphocytes # (Manual) Monocytes # (Manual) Eosinophils # (Manual) Nucleated RBC % Basophils # (Manual) Heparin Anti-Xa Level ABG pH POC ABG pO2 ABG pO2 ABG HCO3 29.2 H ABG O2 Saturation ABG Base Excess 3.4 H ABG Hemoglobin 13.3 L ABG Oxyhemoglobin Oxyhemoglobin 94.5 L Sodium Potassium Chloride Carbon Dioxide BUN Creatinine Glucose POC Glucose 113 H 108 H Lactic Acid Calcium Phosphorus Magnesium AST ALT Lactate Dehydrogenase CK-MB (CK-2) C-Reactive Protein NT-Pro-B Natriuret Pep Total Protein Albumin Urine WBC (Auto) 11/27/19 11/28/19 11/28/19 05:27 05:00 05:25 WBC RBC Hgb Hct MCHC RDW Lymph % (Auto) Elbert % (Auto) Elbert # Eos # Elbert # (Auto) Eos # (Auto) Seg Neutrophils % Seg Neuts % (Manual) Baso # (Auto) Lymphocytes % (Manual) Monocytes % (Manual) Eosinophils % (Manual) Basophils % (Manual) Seg Neutrophils # Seg Neutrophils # Man Lymphocytes # (Manual) Monocytes # (Manual) Eosinophils # (Manual) Nucleated RBC % Basophils # (Manual) Heparin Anti-Xa Level ABG pH POC ABG pO2 68.1 L ABG pO2 ABG HCO3 ABG O2 Saturation ABG Base Excess ABG Hemoglobin ABG Oxyhemoglobin 91.2 L Oxyhemoglobin Sodium Potassium Chloride Carbon Dioxide BUN Creatinine Glucose POC Glucose 111 H 110 H Lactic Acid Calcium Phosphorus Magnesium AST ALT Lactate Dehydrogenase CK-MB (CK-2) C-Reactive Protein NT-Pro-B Natriuret Pep Total Protein Albumin Urine WBC (Auto) 11/28/19 11/28/19 11/28/19 12:08 13:47 13:47 WBC 11.3 H RBC Hgb Hct MCHC RDW 16.1 H Lymph % (Auto) Elbert % (Auto) 9.9 H Elbert # 1.1 H Eos # Elbert # (Auto) Eos # (Auto) Seg Neutrophils % 71.4 H Seg Neuts % (Manual) Baso # (Auto) Lymphocytes % (Manual) Monocytes % (Manual) Eosinophils % (Manual) Basophils % (Manual) Seg Neutrophils # 8.1 H Seg Neutrophils # Man Lymphocytes # (Manual) Monocytes # (Manual) Eosinophils # (Manual) Nucleated RBC % Basophils # (Manual) Heparin Anti-Xa Level ABG pH POC ABG pO2 ABG pO2 ABG HCO3 ABG O2 Saturation ABG Base Excess ABG Hemoglobin ABG Oxyhemoglobin Oxyhemoglobin Sodium Potassium Chloride Carbon Dioxide BUN 23 H Creatinine Glucose 123 H POC Glucose 112 H Lactic Acid Calcium Phosphorus Magnesium AST ALT Lactate Dehydrogenase CK-MB (CK-2) C-Reactive Protein NT-Pro-B Natriuret Pep Total Protein Albumin 3.7 L Urine WBC (Auto) 11/28/19 11/29/19 11/29/19 17:26 03:55 17:04 WBC RBC Hgb Hct MCHC RDW Lymph % (Auto) Elbert % (Auto) Elbert # Eos # Elbert # (Auto) Eos # (Auto) Seg Neutrophils % Seg Neuts % (Manual) Baso # (Auto) Lymphocytes % (Manual) Monocytes % (Manual) Eosinophils % (Manual) Basophils % (Manual) Seg Neutrophils # Seg Neutrophils # Man Lymphocytes # (Manual) Monocytes # (Manual) Eosinophils # (Manual) Nucleated RBC % Basophils # (Manual) Heparin Anti-Xa Level ABG pH POC ABG pO2 ABG pO2 65.7 L ABG HCO3 28.3 H ABG O2 Saturation 93.9 L ABG Base Excess 3.6 H ABG Hemoglobin 13.3 L ABG Oxyhemoglobin Oxyhemoglobin 91.5 L Sodium Potassium Chloride Carbon Dioxide BUN Creatinine Glucose POC Glucose 123 H 119 H Lactic Acid Calcium Phosphorus Magnesium AST ALT Lactate Dehydrogenase CK-MB (CK-2) C-Reactive Protein NT-Pro-B Natriuret Pep Total Protein Albumin Urine WBC (Auto) 11/30/19 11/30/19 11/30/19 04:17 04:17 04:56 WBC 13.4 H RBC Hgb Hct MCHC RDW 15.6 H Lymph % (Auto) Elbert % (Auto) Elbert # Eos # Elbert # (Auto) Eos # (Auto) Seg Neutrophils % Seg Neuts % (Manual) Baso # (Auto) Lymphocytes % (Manual) Monocytes % (Manual) Eosinophils % (Manual) Basophils % (Manual) Seg Neutrophils # Seg Neutrophils # Man Lymphocytes # (Manual) Monocytes # (Manual) Eosinophils # (Manual) Nucleated RBC % Basophils # (Manual) Heparin Anti-Xa Level ABG pH POC ABG pO2 ABG pO2 56.3 L ABG HCO3 29.3 H ABG O2 Saturation 91.5 L ABG Base Excess 4.7 H ABG Hemoglobin 12.1 L ABG Oxyhemoglobin Oxyhemoglobin 89.2 L Sodium 147 H Potassium Chloride Carbon Dioxide BUN 30 H Creatinine Glucose 124 H POC Glucose Lactic Acid Calcium Phosphorus Magnesium AST ALT Lactate Dehydrogenase CK-MB (CK-2) C-Reactive Protein NT-Pro-B Natriuret Pep Total Protein Albumin 3.8 L Urine WBC (Auto) 11/30/19 11/30/19 11/30/19 05:51 11:54 18:17 WBC RBC Hgb Hct MCHC RDW Lymph % (Auto) Elbert % (Auto) Elbert # Eos # Elbert # (Auto) Eos # (Auto) Seg Neutrophils % Seg Neuts % (Manual) Baso # (Auto) Lymphocytes % (Manual) Monocytes % (Manual) Eosinophils % (Manual) Basophils % (Manual) Seg Neutrophils # Seg Neutrophils # Man Lymphocytes # (Manual) Monocytes # (Manual) Eosinophils # (Manual) Nucleated RBC % Basophils # (Manual) Heparin Anti-Xa Level ABG pH POC ABG pO2 ABG pO2 ABG HCO3 ABG O2 Saturation ABG Base Excess ABG Hemoglobin ABG Oxyhemoglobin Oxyhemoglobin Sodium Potassium Chloride Carbon Dioxide BUN Creatinine Glucose POC Glucose 127 H 115 H 143 H Lactic Acid Calcium Phosphorus Magnesium AST ALT Lactate Dehydrogenase CK-MB (CK-2) C-Reactive Protein NT-Pro-B Natriuret Pep Total Protein Albumin Urine WBC (Auto) 12/01/19 12/01/19 12/01/19 01:18 05:22 12:16 WBC RBC Hgb Hct MCHC RDW Lymph % (Auto) Elbert % (Auto) Elbert # Eos # Elbert # (Auto) Eos # (Auto) Seg Neutrophils % Seg Neuts % (Manual) Baso # (Auto) Lymphocytes % (Manual) Monocytes % (Manual) Eosinophils % (Manual) Basophils % (Manual) Seg Neutrophils # Seg Neutrophils # Man Lymphocytes # (Manual) Monocytes # (Manual) Eosinophils # (Manual) Nucleated RBC % Basophils # (Manual) Heparin Anti-Xa Level ABG pH POC ABG pO2 ABG pO2 ABG HCO3 ABG O2 Saturation ABG Base Excess ABG Hemoglobin ABG Oxyhemoglobin Oxyhemoglobin Sodium Potassium 3.5 L Chloride 107.8 H Carbon Dioxide BUN 37 H Creatinine Glucose 157 H POC Glucose 118 H 148 H Lactic Acid Calcium 8.2 L D Phosphorus Magnesium AST 48 H ALT 60 H Lactate Dehydrogenase 194 H CK-MB (CK-2) C-Reactive Protein 8.50 H NT-Pro-B Natriuret Pep Total Protein 5.5 L Albumin 2.8 L Urine WBC (Auto) 12/01/19 12/02/19 12/02/19 18:04 00:05 05:16 WBC 11.4 H RBC Hgb Hct MCHC RDW 15.9 H Lymph % (Auto) Elbert % (Auto) 9.9 H Elbert # 1.1 H Eos # Elbert # (Auto) Eos # (Auto) Seg Neutrophils % 70.3 H Seg Neuts % (Manual) Baso # (Auto) Lymphocytes % (Manual) Monocytes % (Manual) Eosinophils % (Manual) Basophils % (Manual) Seg Neutrophils # 8.0 H Seg Neutrophils # Man Lymphocytes # (Manual) Monocytes # (Manual) Eosinophils # (Manual) Nucleated RBC % Basophils # (Manual) Heparin Anti-Xa Level ABG pH POC ABG pO2 ABG pO2 ABG HCO3 ABG O2 Saturation ABG Base Excess ABG Hemoglobin ABG Oxyhemoglobin Oxyhemoglobin Sodium Potassium Chloride Carbon Dioxide BUN Creatinine Glucose POC Glucose 143 H 107 H Lactic Acid Calcium Phosphorus Magnesium AST ALT Lactate Dehydrogenase CK-MB (CK-2) C-Reactive Protein NT-Pro-B Natriuret Pep Total Protein Albumin Urine WBC (Auto) 12/02/19 12/02/19 12/02/19 05:16 06:03 11:52 WBC RBC Hgb Hct MCHC RDW Lymph % (Auto) Elbert % (Auto) Elbert # Eos # Elbert # (Auto) Eos # (Auto) Seg Neutrophils % Seg Neuts % (Manual) Baso # (Auto) Lymphocytes % (Manual) Monocytes % (Manual) Eosinophils % (Manual) Basophils % (Manual) Seg Neutrophils # Seg Neutrophils # Man Lymphocytes # (Manual) Monocytes # (Manual) Eosinophils # (Manual) Nucleated RBC % Basophils # (Manual) Heparin Anti-Xa Level ABG pH POC ABG pO2 ABG pO2 ABG HCO3 ABG O2 Saturation ABG Base Excess ABG Hemoglobin ABG Oxyhemoglobin Oxyhemoglobin Sodium 146 H Potassium Chloride Carbon Dioxide BUN 28 H Creatinine Glucose 123 H POC Glucose 110 H 152 H Lactic Acid Calcium Phosphorus Magnesium AST ALT Lactate Dehydrogenase CK-MB (CK-2) C-Reactive Protein NT-Pro-B Natriuret Pep Total Protein Albumin Urine WBC (Auto) 12/02/19 12/02/19 12/02/19 12:58 17:58 23:36 WBC RBC Hgb Hct MCHC RDW Lymph % (Auto) Elbert % (Auto) Elbert # Eos # Elbert # (Auto) Eos # (Auto) Seg Neutrophils % Seg Neuts % (Manual) Baso # (Auto) Lymphocytes % (Manual) Monocytes % (Manual) Eosinophils % (Manual) Basophils % (Manual) Seg Neutrophils # Seg Neutrophils # Man Lymphocytes # (Manual) Monocytes # (Manual) Eosinophils # (Manual) Nucleated RBC % Basophils # (Manual) Heparin Anti-Xa Level ABG pH POC ABG pO2 78.1 L ABG pO2 ABG HCO3 ABG O2 Saturation ABG Base Excess ABG Hemoglobin ABG Oxyhemoglobin Oxyhemoglobin Sodium Potassium Chloride Carbon Dioxide BUN Creatinine Glucose POC Glucose 120 H 123 H Lactic Acid Calcium Phosphorus Magnesium AST ALT Lactate Dehydrogenase CK-MB (CK-2) C-Reactive Protein NT-Pro-B Natriuret Pep Total Protein Albumin Urine WBC (Auto) 12/03/19 12/03/19 12/03/19 06:03 06:14 11:46 WBC RBC Hgb Hct MCHC RDW Lymph % (Auto) Elbert % (Auto) Elbert # Eos # Elbert # (Auto) Eos # (Auto) Seg Neutrophils % Seg Neuts % (Manual) Baso # (Auto) Lymphocytes % (Manual) Monocytes % (Manual) Eosinophils % (Manual) Basophils % (Manual) Seg Neutrophils # Seg Neutrophils # Man Lymphocytes # (Manual) Monocytes # (Manual) Eosinophils # (Manual) Nucleated RBC % Basophils # (Manual) Heparin Anti-Xa Level ABG pH POC ABG pO2 ABG pO2 ABG HCO3 ABG O2 Saturation ABG Base Excess ABG Hemoglobin ABG Oxyhemoglobin Oxyhemoglobin Sodium Potassium Chloride Carbon Dioxide BUN Creatinine Glucose POC Glucose 142 H 130 H Lactic Acid Calcium Phosphorus Magnesium AST ALT Lactate Dehydrogenase CK-MB (CK-2) C-Reactive Protein NT-Pro-B Natriuret Pep Total Protein Albumin Urine WBC (Auto) 8.0 H 12/03/19 12/03/19 12/04/19 15:50 17:39 00:04 WBC RBC Hgb Hct MCHC RDW Lymph % (Auto) Elbert % (Auto) Elbert # Eos # Elbert # (Auto) Eos # (Auto) Seg Neutrophils % Seg Neuts % (Manual) Baso # (Auto) Lymphocytes % (Manual) Monocytes % (Manual) Eosinophils % (Manual) Basophils % (Manual) Seg Neutrophils # Seg Neutrophils # Man Lymphocytes # (Manual) Monocytes # (Manual) Eosinophils # (Manual) Nucleated RBC % Basophils # (Manual) Heparin Anti-Xa Level ABG pH POC ABG pO2 ABG pO2 ABG HCO3 ABG O2 Saturation ABG Base Excess ABG Hemoglobin ABG Oxyhemoglobin Oxyhemoglobin Sodium Potassium Chloride Carbon Dioxide BUN Creatinine Glucose POC Glucose 146 H 133 H Lactic Acid Calcium Phosphorus 2.40 L Magnesium AST ALT Lactate Dehydrogenase CK-MB (CK-2) C-Reactive Protein NT-Pro-B Natriuret Pep Total Protein Albumin Urine WBC (Auto) 12/04/19 12/04/19 12/04/19 03:58 03:58 05:22 WBC 12.5 H RBC Hgb 11.2 L Hct 35.2 L MCHC RDW 16.0 H Lymph % (Auto) Elbert % (Auto) 9.6 H Elbert # 1.2 H Eos # 0.5 H Elbert # (Auto) Eos # (Auto) Seg Neutrophils % Seg Neuts % (Manual) Baso # (Auto) Lymphocytes % (Manual) Monocytes % (Manual) Eosinophils % (Manual) Basophils % (Manual) Seg Neutrophils # 8.6 H Seg Neutrophils # Man Lymphocytes # (Manual) Monocytes # (Manual) Eosinophils # (Manual) Nucleated RBC % Basophils # (Manual) Heparin Anti-Xa Level ABG pH POC ABG pO2 ABG pO2 ABG HCO3 ABG O2 Saturation ABG Base Excess ABG Hemoglobin ABG Oxyhemoglobin Oxyhemoglobin Sodium 146 H Potassium Chloride 108.6 H Carbon Dioxide BUN 30 H Creatinine 0.7 L Glucose 121 H POC Glucose 132 H Lactic Acid Calcium Phosphorus Magnesium AST ALT Lactate Dehydrogenase CK-MB (CK-2) C-Reactive Protein NT-Pro-B Natriuret Pep Total Protein Albumin Urine WBC (Auto) 12/04/19 12/04/19 12/05/19 13:26 18:43 00:19 WBC RBC Hgb Hct MCHC RDW Lymph % (Auto) Elbert % (Auto) Elbert # Eos # Elbert # (Auto) Eos # (Auto) Seg Neutrophils % Seg Neuts % (Manual) Baso # (Auto) Lymphocytes % (Manual) Monocytes % (Manual) Eosinophils % (Manual) Basophils % (Manual) Seg Neutrophils # Seg Neutrophils # Man Lymphocytes # (Manual) Monocytes # (Manual) Eosinophils # (Manual) Nucleated RBC % Basophils # (Manual) Heparin Anti-Xa Level ABG pH POC ABG pO2 ABG pO2 ABG HCO3 ABG O2 Saturation ABG Base Excess ABG Hemoglobin ABG Oxyhemoglobin Oxyhemoglobin Sodium Potassium Chloride Carbon Dioxide BUN Creatinine Glucose POC Glucose 185 H 156 H 150 H Lactic Acid Calcium Phosphorus Magnesium AST ALT Lactate Dehydrogenase CK-MB (CK-2) C-Reactive Protein NT-Pro-B Natriuret Pep Total Protein Albumin Urine WBC (Auto) 12/05/19 12/05/19 12/05/19 03:37 03:37 05:14 WBC 16.3 H RBC Hgb 11.4 L Hct MCHC RDW 15.6 H Lymph % (Auto) 9.9 L Elbert % (Auto) 9.7 H Elbert # 1.6 H Eos # Elbert # (Auto) Eos # (Auto) Seg Neutrophils % 78.0 H Seg Neuts % (Manual) Baso # (Auto) Lymphocytes % (Manual) Monocytes % (Manual) Eosinophils % (Manual) Basophils % (Manual) Seg Neutrophils # 12.7 H Seg Neutrophils # Man Lymphocytes # (Manual) Monocytes # (Manual) Eosinophils # (Manual) Nucleated RBC % Basophils # (Manual) Heparin Anti-Xa Level ABG pH POC ABG pO2 ABG pO2 ABG HCO3 ABG O2 Saturation ABG Base Excess ABG Hemoglobin ABG Oxyhemoglobin Oxyhemoglobin Sodium 146 H Potassium Chloride 107.2 H Carbon Dioxide BUN 27 H Creatinine 0.7 L Glucose 171 H POC Glucose 168 H Lactic Acid Calcium Phosphorus Magnesium AST ALT Lactate Dehydrogenase CK-MB (CK-2) C-Reactive Protein NT-Pro-B Natriuret Pep Total Protein Albumin Urine WBC (Auto) 12/05/19 12/05/19 12/05/19 12:31 18:10 23:58 WBC RBC Hgb Hct MCHC RDW Lymph % (Auto) Elbert % (Auto) Elbert # Eos # Elbert # (Auto) Eos # (Auto) Seg Neutrophils % Seg Neuts % (Manual) Baso # (Auto) Lymphocytes % (Manual) Monocytes % (Manual) Eosinophils % (Manual) Basophils % (Manual) Seg Neutrophils # Seg Neutrophils # Man Lymphocytes # (Manual) Monocytes # (Manual) Eosinophils # (Manual) Nucleated RBC % Basophils # (Manual) Heparin Anti-Xa Level ABG pH POC ABG pO2 ABG pO2 ABG HCO3 ABG O2 Saturation ABG Base Excess ABG Hemoglobin ABG Oxyhemoglobin Oxyhemoglobin Sodium Potassium Chloride Carbon Dioxide BUN Creatinine Glucose POC Glucose 159 H 198 H 115 H Lactic Acid Calcium Phosphorus Magnesium AST ALT Lactate Dehydrogenase CK-MB (CK-2) C-Reactive Protein NT-Pro-B Natriuret Pep Total Protein Albumin Urine WBC (Auto) 12/06/19 12/06/19 12/06/19 05:24 05:24 05:25 WBC 14.9 H RBC Hgb 10.8 L Hct 34.0 L MCHC RDW 15.6 H Lymph % (Auto) 10.7 L Elbert % (Auto) 8.3 H Elbert # 1.2 H Eos # Elbert # (Auto) Eos # (Auto) Seg Neutrophils % 78.7 H Seg Neuts % (Manual) Baso # (Auto) Lymphocytes % (Manual) Monocytes % (Manual) Eosinophils % (Manual) Basophils % (Manual) Seg Neutrophils # 11.7 H Seg Neutrophils # Man Lymphocytes # (Manual) Monocytes # (Manual) Eosinophils # (Manual) Nucleated RBC % Basophils # (Manual) Heparin Anti-Xa Level ABG pH POC ABG pO2 ABG pO2 ABG HCO3 ABG O2 Saturation ABG Base Excess ABG Hemoglobin ABG Oxyhemoglobin Oxyhemoglobin Sodium 148 H Potassium 5.1 H Chloride 107.6 H Carbon Dioxide BUN 27 H Creatinine 0.7 L Glucose 155 H POC Glucose 157 H Lactic Acid Calcium Phosphorus Magnesium AST ALT Lactate Dehydrogenase CK-MB (CK-2) C-Reactive Protein NT-Pro-B Natriuret Pep Total Protein Albumin Urine WBC (Auto) 12/07/19 12/07/1920 00:13 05:34 11:33 WBC RBC Hgb Hct MCHC RDW Lymph % (Auto) Elbert % (Auto) Elbert # Eos # Elbert # (Auto) Eos # (Auto) Seg Neutrophils % Seg Neuts % (Manual) Baso # (Auto) Lymphocytes % (Manual) Monocytes % (Manual) Eosinophils % (Manual) Basophils % (Manual) Seg Neutrophils # Seg Neutrophils # Man Lymphocytes # (Manual) Monocytes # (Manual) Eosinophils # (Manual) Nucleated RBC % Basophils # (Manual) Heparin Anti-Xa Level ABG pH POC ABG pO2 ABG pO2 ABG HCO3 ABG O2 Saturation ABG Base Excess ABG Hemoglobin ABG Oxyhemoglobin Oxyhemoglobin Sodium Potassium Chloride Carbon Dioxide BUN Creatinine Glucose POC Glucose 142 H 111 H 169 H Lactic Acid Calcium Phosphorus Magnesium AST ALT Lactate Dehydrogenase CK-MB (CK-2) C-Reactive Protein NT-Pro-B Natriuret Pep Total Protein Albumin Urine WBC (Auto) 12/07/19 12/07/19 12/07/19 12:41 13:25 18:19 WBC 12.4 H RBC 3.53 L Hgb 10.2 L Hct 32.1 L MCHC RDW 15.3 H Lymph % (Auto) 10.6 L Elbert % (Auto) 7.8 H Elbert # 1.0 H Eos # Elbert # (Auto) Eos # (Auto) Seg Neutrophils % 77.6 H Seg Neuts % (Manual) Baso # (Auto) Lymphocytes % (Manual) Monocytes % (Manual) Eosinophils % (Manual) Basophils % (Manual) Seg Neutrophils # 9.6 H Seg Neutrophils # Man Lymphocytes # (Manual) Monocytes # (Manual) Eosinophils # (Manual) Nucleated RBC % Basophils # (Manual) Heparin Anti-Xa Level ABG pH POC ABG pO2 ABG pO2 ABG HCO3 ABG O2 Saturation ABG Base Excess ABG Hemoglobin ABG Oxyhemoglobin Oxyhemoglobin Sodium 149 H Potassium Chloride 108.4 H Carbon Dioxide BUN 26 H Creatinine 0.6 L Glucose 149 H POC Glucose 164 H Lactic Acid Calcium Phosphorus Magnesium 2.60 H AST 121 H ALT 145 H Lactate Dehydrogenase CK-MB (CK-2) C-Reactive Protein NT-Pro-B Natriuret Pep Total Protein Albumin 2.6 L Urine WBC (Auto) 09/14/20 09/15/20 09/15/20 22:25 00:02 03:55 WBC 13.3 H RBC 3.40 L Hgb 9.7 L Hct 30.8 L MCHC 31 L RDW 15.5 H Lymph % (Auto) Elbert % (Auto) 8.1 H Elbert # 1.1 H Eos # Elbert # (Auto) Eos # (Auto) Seg Neutrophils % 73.0 H Seg Neuts % (Manual) Baso # (Auto) Lymphocytes % (Manual) Monocytes % (Manual) Eosinophils % (Manual) Basophils % (Manual) Seg Neutrophils # 9.7 H Seg Neutrophils # Man Lymphocytes # (Manual) Monocytes # (Manual) Eosinophils # (Manual) Nucleated RBC % Basophils # (Manual) Heparin Anti-Xa Level 0.12 L ABG pH POC ABG pO2 ABG pO2 ABG HCO3 ABG O2 Saturation ABG Base Excess ABG Hemoglobin ABG Oxyhemoglobin Oxyhemoglobin Sodium Potassium Chloride Carbon Dioxide BUN Creatinine Glucose POC Glucose 151 H Lactic Acid Calcium Phosphorus Magnesium AST ALT Lactate Dehydrogenase CK-MB (CK-2) C-Reactive Protein NT-Pro-B Natriuret Pep Total Protein Albumin Urine WBC (Auto) 12/08/19 12/08/19 12/08/19 03:55 05:21 06:01 WBC RBC Hgb Hct MCHC RDW Lymph % (Auto) Elbert % (Auto) Elbert # Eos # Elbert # (Auto) Eos # (Auto) Seg Neutrophils % Seg Neuts % (Manual) Baso # (Auto) Lymphocytes % (Manual) Monocytes % (Manual) Eosinophils % (Manual) Basophils % (Manual) Seg Neutrophils # Seg Neutrophils # Man Lymphocytes # (Manual) Monocytes # (Manual) Eosinophils # (Manual) Nucleated RBC % Basophils # (Manual) Heparin Anti-Xa Level 0.20 L ABG pH POC ABG pO2 ABG pO2 ABG HCO3 ABG O2 Saturation ABG Base Excess ABG Hemoglobin ABG Oxyhemoglobin Oxyhemoglobin Sodium 149 H Potassium Chloride 108.0 H Carbon Dioxide BUN 28 H Creatinine 0.6 L Glucose 144 H POC Glucose 143 H Lactic Acid Calcium Phosphorus Magnesium AST 98 H ALT 145 H Lactate Dehydrogenase CK-MB (CK-2) C-Reactive Protein NT-Pro-B Natriuret Pep Total Protein 6.0 L Albumin 2.4 L Urine WBC (Auto) 12/08/19 12/08/19 12/08/19 12:08 18:11 23:53 WBC RBC Hgb Hct MCHC RDW Lymph % (Auto) Elbert % (Auto) Elbert # Eos # Elbert # (Auto) Eos # (Auto) Seg Neutrophils % Seg Neuts % (Manual) Baso # (Auto) Lymphocytes % (Manual) Monocytes % (Manual) Eosinophils % (Manual) Basophils % (Manual) Seg Neutrophils # Seg Neutrophils # Man Lymphocytes # (Manual) Monocytes # (Manual) Eosinophils # (Manual) Nucleated RBC % Basophils # (Manual) Heparin Anti-Xa Level ABG pH POC ABG pO2 ABG pO2 ABG HCO3 ABG O2 Saturation ABG Base Excess ABG Hemoglobin ABG Oxyhemoglobin Oxyhemoglobin Sodium Potassium Chloride Carbon Dioxide BUN Creatinine Glucose POC Glucose 172 H 122 H 162 H Lactic Acid Calcium Phosphorus Magnesium AST ALT Lactate Dehydrogenase CK-MB (CK-2) C-Reactive Protein NT-Pro-B Natriuret Pep Total Protein Albumin Urine WBC (Auto) 12/09/19 12/09/19 12/09/19 04:03 04:03 05:53 WBC RBC Hgb 9.1 L Hct 28.9 L MCHC RDW Lymph % (Auto) Elbert % (Auto) Elbert # Eos # Elbert # (Auto) Eos # (Auto) Seg Neutrophils % Seg Neuts % (Manual) Baso # (Auto) Lymphocytes % (Manual) Monocytes % (Manual) Eosinophils % (Manual) Basophils % (Manual) Seg Neutrophils # Seg Neutrophils # Man Lymphocytes # (Manual) Monocytes # (Manual) Eosinophils # (Manual) Nucleated RBC % Basophils # (Manual) Heparin Anti-Xa Level 0.15 L ABG pH POC ABG pO2 ABG pO2 ABG HCO3 ABG O2 Saturation ABG Base Excess ABG Hemoglobin ABG Oxyhemoglobin Oxyhemoglobin Sodium Potassium Chloride Carbon Dioxide BUN Creatinine Glucose POC Glucose 124 H Lactic Acid Calcium Phosphorus Magnesium AST ALT Lactate Dehydrogenase CK-MB (CK-2) C-Reactive Protein NT-Pro-B Natriuret Pep Total Protein Albumin Urine WBC (Auto) 12/09/19 12/09/19 12/10/19 09:43 12:41 00:13 WBC RBC Hgb Hct MCHC RDW Lymph % (Auto) Elbert % (Auto) Elbert # Eos # Elbert # (Auto) Eos # (Auto) Seg Neutrophils % Seg Neuts % (Manual) Baso # (Auto) Lymphocytes % (Manual) Monocytes % (Manual) Eosinophils % (Manual) Basophils % (Manual) Seg Neutrophils # Seg Neutrophils # Man Lymphocytes # (Manual) Monocytes # (Manual) Eosinophils # (Manual) Nucleated RBC % Basophils # (Manual) Heparin Anti-Xa Level ABG pH POC ABG pO2 ABG pO2 ABG HCO3 ABG O2 Saturation ABG Base Excess ABG Hemoglobin ABG Oxyhemoglobin Oxyhemoglobin Sodium Potassium Chloride Carbon Dioxide BUN 25 H Creatinine 0.6 L Glucose 131 H POC Glucose 109 H 120 H Lactic Acid Calcium Phosphorus Magnesium AST ALT Lactate Dehydrogenase CK-MB (CK-2) C-Reactive Protein NT-Pro-B Natriuret Pep Total Protein Albumin Urine WBC (Auto) 12/10/19 12/10/19 12/10/19 04:14 04:14 12:00 WBC 13.3 H RBC 3.34 L Hgb 9.6 L Hct 30.4 L MCHC RDW 15.4 H Lymph % (Auto) Elbert % (Auto) Elbert # Eos # Elbert # (Auto) Eos # (Auto) Seg Neutrophils % Seg Neuts % (Manual) 75.0 H Baso # (Auto) Lymphocytes % (Manual) 13.0 L Monocytes % (Manual) 8.0 H Eosinophils % (Manual) Basophils % (Manual) 2.0 H Seg Neutrophils # Seg Neutrophils # Man 10.0 H Lymphocytes # (Manual) Monocytes # (Manual) 1.1 H Eosinophils # (Manual) Nucleated RBC % Basophils # (Manual) 0.3 H Heparin Anti-Xa Level ABG pH POC ABG pO2 ABG pO2 ABG HCO3 ABG O2 Saturation ABG Base Excess ABG Hemoglobin ABG Oxyhemoglobin Oxyhemoglobin Sodium 147 H Potassium Chloride 108.3 H Carbon Dioxide BUN 21 H Creatinine 0.6 L Glucose 104 H POC Glucose 133 H Lactic Acid Calcium Phosphorus Magnesium AST ALT Lactate Dehydrogenase CK-MB (CK-2) C-Reactive Protein NT-Pro-B Natriuret Pep Total Protein Albumin Urine WBC (Auto) 12/10/19 12/10/19 12/11/19 18:44 21:20 00:08 WBC 14.9 H RBC 3.36 L Hgb 9.6 L Hct 30.5 L MCHC RDW 15.4 H Lymph % (Auto) Elbert % (Auto) Elbert # Eos # Elbert # (Auto) Eos # (Auto) Seg Neutrophils % Seg Neuts % (Manual) Baso # (Auto) Lymphocytes % (Manual) Monocytes % (Manual) Eosinophils % (Manual) Basophils % (Manual) Seg Neutrophils # Seg Neutrophils # Man Lymphocytes # (Manual) Monocytes # (Manual) Eosinophils # (Manual) Nucleated RBC % Basophils # (Manual) Heparin Anti-Xa Level ABG pH POC ABG pO2 ABG pO2 ABG HCO3 ABG O2 Saturation ABG Base Excess ABG Hemoglobin ABG Oxyhemoglobin Oxyhemoglobin Sodium Potassium Chloride Carbon Dioxide BUN Creatinine Glucose POC Glucose 119 H 134 H Lactic Acid Calcium Phosphorus Magnesium AST ALT Lactate Dehydrogenase CK-MB (CK-2) C-Reactive Protein NT-Pro-B Natriuret Pep Total Protein Albumin Urine WBC (Auto) 12/11/19 12/11/19 12/11/19 03:54 07:28 08:36 WBC 11.9 H RBC 3.25 L Hgb 9.6 L Hct 29.2 L MCHC RDW 15.7 H Lymph % (Auto) Elbert % (Auto) Elbert # Eos # Elbert # (Auto) Eos # (Auto) Seg Neutrophils % Seg Neuts % (Manual) Baso # (Auto) Lymphocytes % (Manual) Monocytes % (Manual) Eosinophils % (Manual) Basophils % (Manual) Seg Neutrophils # Seg Neutrophils # Man Lymphocytes # (Manual) Monocytes # (Manual) Eosinophils # (Manual) Nucleated RBC % Basophils # (Manual) Heparin Anti-Xa Level 0.10 L 0.16 L ABG pH POC ABG pO2 ABG pO2 ABG HCO3 ABG O2 Saturation ABG Base Excess ABG Hemoglobin ABG Oxyhemoglobin Oxyhemoglobin Sodium Potassium Chloride Carbon Dioxide BUN Creatinine Glucose POC Glucose Lactic Acid Calcium Phosphorus Magnesium AST ALT Lactate Dehydrogenase CK-MB (CK-2) C-Reactive Protein NT-Pro-B Natriuret Pep Total Protein Albumin Urine WBC (Auto) 12/11/19 12/11/19 12/11/19 08:36 11:45 17:15 WBC RBC Hgb Hct MCHC RDW Lymph % (Auto) Elbert % (Auto) Elbert # Eos # Elbert # (Auto) Eos # (Auto) Seg Neutrophils % Seg Neuts % (Manual) Baso # (Auto) Lymphocytes % (Manual) Monocytes % (Manual) Eosinophils % (Manual) Basophils % (Manual) Seg Neutrophils # Seg Neutrophils # Man Lymphocytes # (Manual) Monocytes # (Manual) Eosinophils # (Manual) Nucleated RBC % Basophils # (Manual) Heparin Anti-Xa Level ABG pH POC ABG pO2 ABG pO2 ABG HCO3 ABG O2 Saturation ABG Base Excess ABG Hemoglobin ABG Oxyhemoglobin Oxyhemoglobin Sodium Potassium Chloride Carbon Dioxide BUN Creatinine 0.5 L Glucose 128 H POC Glucose 136 H 109 H Lactic Acid Calcium Phosphorus Magnesium AST ALT Lactate Dehydrogenase CK-MB (CK-2) C-Reactive Protein NT-Pro-B Natriuret Pep Total Protein Albumin Urine WBC (Auto) 12/12/19 12/12/19 12/12/19 00:03 05:53 05:53 WBC RBC Hgb 8.8 L Hct 27.6 L MCHC RDW Lymph % (Auto) Elbert % (Auto) Elbert # Eos # Elbert # (Auto) Eos # (Auto) Seg Neutrophils % Seg Neuts % (Manual) Baso # (Auto) Lymphocytes % (Manual) Monocytes % (Manual) Eosinophils % (Manual) Basophils % (Manual) Seg Neutrophils # Seg Neutrophils # Man Lymphocytes # (Manual) Monocytes # (Manual) Eosinophils # (Manual) Nucleated RBC % Basophils # (Manual) Heparin Anti-Xa Level 0.22 L ABG pH POC ABG pO2 ABG pO2 ABG HCO3 ABG O2 Saturation ABG Base Excess ABG Hemoglobin ABG Oxyhemoglobin Oxyhemoglobin Sodium Potassium Chloride Carbon Dioxide BUN Creatinine Glucose POC Glucose 116 H Lactic Acid Calcium Phosphorus Magnesium AST ALT Lactate Dehydrogenase CK-MB (CK-2) C-Reactive Protein NT-Pro-B Natriuret Pep Total Protein Albumin Urine WBC (Auto) 12/12/19 12/12/19 12/12/19 09:38 12:18 17:44 WBC RBC Hgb Hct MCHC RDW Lymph % (Auto) Elbert % (Auto) Elbert # Eos # Elbert # (Auto) Eos # (Auto) Seg Neutrophils % Seg Neuts % (Manual) Baso # (Auto) Lymphocytes % (Manual) Monocytes % (Manual) Eosinophils % (Manual) Basophils % (Manual) Seg Neutrophils # Seg Neutrophils # Man Lymphocytes # (Manual) Monocytes # (Manual) Eosinophils # (Manual) Nucleated RBC % Basophils # (Manual) Heparin Anti-Xa Level ABG pH POC ABG pO2 ABG pO2 ABG HCO3 ABG O2 Saturation ABG Base Excess ABG Hemoglobin ABG Oxyhemoglobin Oxyhemoglobin Sodium Potassium Chloride Carbon Dioxide BUN Creatinine Glucose POC Glucose 115 H 146 H 146 H Lactic Acid Calcium Phosphorus Magnesium AST ALT Lactate Dehydrogenase CK-MB (CK-2) C-Reactive Protein NT-Pro-B Natriuret Pep Total Protein Albumin Urine WBC (Auto) 12/12/19 12/13/19 12/13/19 23:33 05:32 05:32 WBC 13.1 H RBC 3.27 L Hgb 9.5 L Hct 29.3 L MCHC RDW 15.6 H Lymph % (Auto) Elbert % (Auto) Elbert # Eos # Elbert # (Auto) Eos # (Auto) Seg Neutrophils % Seg Neuts % (Manual) 74.0 H Baso # (Auto) Lymphocytes % (Manual) 8.0 L Monocytes % (Manual) 9.0 H Eosinophils % (Manual) 5.0 H Basophils % (Manual) Seg Neutrophils # Seg Neutrophils # Man 9.7 H Lymphocytes # (Manual) 1.0 L Monocytes # (Manual) 1.2 H Eosinophils # (Manual) 0.7 H Nucleated RBC % Basophils # (Manual) Heparin Anti-Xa Level 0.20 L ABG pH POC ABG pO2 ABG pO2 ABG HCO3 ABG O2 Saturation ABG Base Excess ABG Hemoglobin ABG Oxyhemoglobin Oxyhemoglobin Sodium Potassium Chloride Carbon Dioxide BUN Creatinine Glucose POC Glucose 126 H Lactic Acid Calcium Phosphorus Magnesium AST ALT Lactate Dehydrogenase CK-MB (CK-2) C-Reactive Protein NT-Pro-B Natriuret Pep Total Protein Albumin Urine WBC (Auto) 12/13/19 12/13/19 12/13/19 05:32 05:46 11:57 WBC RBC Hgb Hct MCHC RDW Lymph % (Auto) Elbert % (Auto) Elbert # Eos # Elbert # (Auto) Eos # (Auto) Seg Neutrophils % Seg Neuts % (Manual) Baso # (Auto) Lymphocytes % (Manual) Monocytes % (Manual) Eosinophils % (Manual) Basophils % (Manual) Seg Neutrophils # Seg Neutrophils # Man Lymphocytes # (Manual) Monocytes # (Manual) Eosinophils # (Manual) Nucleated RBC % Basophils # (Manual) Heparin Anti-Xa Level ABG pH POC ABG pO2 ABG pO2 ABG HCO3 ABG O2 Saturation ABG Base Excess ABG Hemoglobin ABG Oxyhemoglobin Oxyhemoglobin Sodium Potassium Chloride Carbon Dioxide 31 H BUN Creatinine 0.6 L Glucose 114 H POC Glucose 118 H 133 H Lactic Acid Calcium Phosphorus Magnesium AST ALT Lactate Dehydrogenase CK-MB (CK-2) C-Reactive Protein NT-Pro-B Natriuret Pep Total Protein Albumin Urine WBC (Auto) 12/13/19 12/13/19 12/14/19 17:44 23:46 05:32 WBC RBC Hgb Hct MCHC RDW Lymph % (Auto) Elbert % (Auto) Elbert # Eos # Elbert # (Auto) Eos # (Auto) Seg Neutrophils % Seg Neuts % (Manual) Baso # (Auto) Lymphocytes % (Manual) Monocytes % (Manual) Eosinophils % (Manual) Basophils % (Manual) Seg Neutrophils # Seg Neutrophils # Man Lymphocytes # (Manual) Monocytes # (Manual) Eosinophils # (Manual) Nucleated RBC % Basophils # (Manual) Heparin Anti-Xa Level ABG pH POC ABG pO2 ABG pO2 ABG HCO3 ABG O2 Saturation ABG Base Excess ABG Hemoglobin ABG Oxyhemoglobin Oxyhemoglobin Sodium Potassium Chloride Carbon Dioxide BUN Creatinine Glucose POC Glucose 161 H 126 H 139 H Lactic Acid Calcium Phosphorus Magnesium AST ALT Lactate Dehydrogenase CK-MB (CK-2) C-Reactive Protein NT-Pro-B Natriuret Pep Total Protein Albumin Urine WBC (Auto) 12/14/19 12/14/19 12/14/19 06:03 06:03 09:37 WBC RBC Hgb 9.6 L Hct 30.4 L MCHC RDW Lymph % (Auto) Elbert % (Auto) Elbert # Eos # Elbert # (Auto) Eos # (Auto) Seg Neutrophils % Seg Neuts % (Manual) Baso # (Auto) Lymphocytes % (Manual) Monocytes % (Manual) Eosinophils % (Manual) Basophils % (Manual) Seg Neutrophils # Seg Neutrophils # Man Lymphocytes # (Manual) Monocytes # (Manual) Eosinophils # (Manual) Nucleated RBC % Basophils # (Manual) Heparin Anti-Xa Level 0.24 L ABG pH POC ABG pO2 ABG pO2 ABG HCO3 ABG O2 Saturation ABG Base Excess ABG Hemoglobin ABG Oxyhemoglobin Oxyhemoglobin Sodium Potassium Chloride Carbon Dioxide BUN Creatinine 0.6 L Glucose 162 H POC Glucose Lactic Acid Calcium Phosphorus Magnesium AST 71 H ALT 118 H Lactate Dehydrogenase CK-MB (CK-2) C-Reactive Protein NT-Pro-B Natriuret Pep Total Protein 6.2 L Albumin 2.3 L Urine WBC (Auto) 12/14/19 12/14/19 12/15/19 12:06 18:18 00:19 WBC RBC Hgb Hct MCHC RDW Lymph % (Auto) Elbert % (Auto) Elbert # Eos # Elbert # (Auto) Eos # (Auto) Seg Neutrophils % Seg Neuts % (Manual) Baso # (Auto) Lymphocytes % (Manual) Monocytes % (Manual) Eosinophils % (Manual) Basophils % (Manual) Seg Neutrophils # Seg Neutrophils # Man Lymphocytes # (Manual) Monocytes # (Manual) Eosinophils # (Manual) Nucleated RBC % Basophils # (Manual) Heparin Anti-Xa Level ABG pH POC ABG pO2 ABG pO2 ABG HCO3 ABG O2 Saturation ABG Base Excess ABG Hemoglobin ABG Oxyhemoglobin Oxyhemoglobin Sodium Potassium Chloride Carbon Dioxide BUN Creatinine Glucose POC Glucose 147 H 166 H 123 H Lactic Acid Calcium Phosphorus Magnesium AST ALT Lactate Dehydrogenase CK-MB (CK-2) C-Reactive Protein NT-Pro-B Natriuret Pep Total Protein Albumin Urine WBC (Auto) 12/15/19 12/15/19 12/15/19 05:28 05:29 05:29 WBC 14.9 H RBC 3.19 L Hgb 9.1 L Hct 28.7 L MCHC RDW 16.0 H Lymph % (Auto) Elbert % (Auto) Elbert # Eos # Elbert # (Auto) Eos # (Auto) Seg Neutrophils % Seg Neuts % (Manual) Baso # (Auto) Lymphocytes % (Manual) Monocytes % (Manual) Eosinophils % (Manual) Basophils % (Manual) Seg Neutrophils # Seg Neutrophils # Man Lymphocytes # (Manual) Monocytes # (Manual) Eosinophils # (Manual) Nucleated RBC % Basophils # (Manual) Heparin Anti-Xa Level 0.19 L ABG pH POC ABG pO2 ABG pO2 ABG HCO3 ABG O2 Saturation ABG Base Excess ABG Hemoglobin ABG Oxyhemoglobin Oxyhemoglobin Sodium Potassium Chloride Carbon Dioxide BUN Creatinine 0.6 L Glucose 110 H POC Glucose Lactic Acid Calcium Phosphorus Magnesium AST ALT Lactate Dehydrogenase CK-MB (CK-2) C-Reactive Protein NT-Pro-B Natriuret Pep Total Protein Albumin Urine WBC (Auto) 12/15/19 12/15/19 12/15/19 05:53 11:50 17:26 WBC RBC Hgb Hct MCHC RDW Lymph % (Auto) Elbert % (Auto) Elbert # Eos # Elbert # (Auto) Eos # (Auto) Seg Neutrophils % Seg Neuts % (Manual) Baso # (Auto) Lymphocytes % (Manual) Monocytes % (Manual) Eosinophils % (Manual) Basophils % (Manual) Seg Neutrophils # Seg Neutrophils # Man Lymphocytes # (Manual) Monocytes # (Manual) Eosinophils # (Manual) Nucleated RBC % Basophils # (Manual) Heparin Anti-Xa Level ABG pH POC ABG pO2 ABG pO2 ABG HCO3 ABG O2 Saturation ABG Base Excess ABG Hemoglobin ABG Oxyhemoglobin Oxyhemoglobin Sodium Potassium Chloride Carbon Dioxide BUN Creatinine Glucose POC Glucose 119 H 132 H 128 H Lactic Acid Calcium Phosphorus Magnesium AST ALT Lactate Dehydrogenase CK-MB (CK-2) C-Reactive Protein NT-Pro-B Natriuret Pep Total Protein Albumin Urine WBC (Auto) 12/15/19 12/16/19 12/16/19 23:11 05:30 05:46 WBC RBC Hgb 8.8 L Hct 27.9 L MCHC RDW Lymph % (Auto) Elbert % (Auto) Elbert # Eos # Elbert # (Auto) Eos # (Auto) Seg Neutrophils % Seg Neuts % (Manual) Baso # (Auto) Lymphocytes % (Manual) Monocytes % (Manual) Eosinophils % (Manual) Basophils % (Manual) Seg Neutrophils # Seg Neutrophils # Man Lymphocytes # (Manual) Monocytes # (Manual) Eosinophils # (Manual) Nucleated RBC % Basophils # (Manual) Heparin Anti-Xa Level ABG pH POC ABG pO2 ABG pO2 ABG HCO3 ABG O2 Saturation ABG Base Excess ABG Hemoglobin ABG Oxyhemoglobin Oxyhemoglobin Sodium Potassium Chloride Carbon Dioxide BUN Creatinine Glucose POC Glucose 150 H 134 H Lactic Acid Calcium Phosphorus Magnesium AST ALT Lactate Dehydrogenase CK-MB (CK-2) C-Reactive Protein NT-Pro-B Natriuret Pep Total Protein Albumin Urine WBC (Auto) 12/16/19 12/16/19 12/16/19 05:46 05:46 11:44 WBC RBC Hgb Hct MCHC RDW Lymph % (Auto) Elbert % (Auto) Elbert # Eos # Elbert # (Auto) Eos # (Auto) Seg Neutrophils % Seg Neuts % (Manual) Baso # (Auto) Lymphocytes % (Manual) Monocytes % (Manual) Eosinophils % (Manual) Basophils % (Manual) Seg Neutrophils # Seg Neutrophils # Man Lymphocytes # (Manual) Monocytes # (Manual) Eosinophils # (Manual) Nucleated RBC % Basophils # (Manual) Heparin Anti-Xa Level 0.20 L ABG pH POC ABG pO2 ABG pO2 ABG HCO3 ABG O2 Saturation ABG Base Excess ABG Hemoglobin ABG Oxyhemoglobin Oxyhemoglobin Sodium Potassium Chloride Carbon Dioxide 31 H BUN Creatinine 0.5 L Glucose 147 H POC Glucose 164 H Lactic Acid Calcium Phosphorus Magnesium AST ALT Lactate Dehydrogenase CK-MB (CK-2) C-Reactive Protein NT-Pro-B Natriuret Pep Total Protein Albumin Urine WBC (Auto) 12/16/19 12/16/19 12/17/19 17:17 23:49 05:30 WBC 13.9 H RBC 3.27 L Hgb 9.4 L Hct 29.2 L MCHC RDW 16.0 H Lymph % (Auto) Elbert % (Auto) 8.8 H Elbert # Eos # Elbert # (Auto) 1.2 H Eos # (Auto) 0.5 H Seg Neutrophils % 70.5 H Seg Neuts % (Manual) Baso # (Auto) 0.2 H Lymphocytes % (Manual) Monocytes % (Manual) Eosinophils % (Manual) Basophils % (Manual) Seg Neutrophils # 9.8 H Seg Neutrophils # Man Lymphocytes # (Manual) Monocytes # (Manual) Eosinophils # (Manual) Nucleated RBC % Basophils # (Manual) Heparin Anti-Xa Level ABG pH POC ABG pO2 ABG pO2 ABG HCO3 ABG O2 Saturation ABG Base Excess ABG Hemoglobin ABG Oxyhemoglobin Oxyhemoglobin Sodium Potassium Chloride Carbon Dioxide BUN Creatinine Glucose POC Glucose 162 H 144 H Lactic Acid Calcium Phosphorus Magnesium AST ALT Lactate Dehydrogenase CK-MB (CK-2) C-Reactive Protein NT-Pro-B Natriuret Pep Total Protein Albumin Urine WBC (Auto) 12/17/19 12/17/19 12/17/19 05:30 06:06 11:50 WBC RBC Hgb Hct MCHC RDW Lymph % (Auto) Elbert % (Auto) Elbert # Eos # Elbert # (Auto) Eos # (Auto) Seg Neutrophils % Seg Neuts % (Manual) Baso # (Auto) Lymphocytes % (Manual) Monocytes % (Manual) Eosinophils % (Manual) Basophils % (Manual) Seg Neutrophils # Seg Neutrophils # Man Lymphocytes # (Manual) Monocytes # (Manual) Eosinophils # (Manual) Nucleated RBC % Basophils # (Manual) Heparin Anti-Xa Level ABG pH POC ABG pO2 ABG pO2 ABG HCO3 ABG O2 Saturation ABG Base Excess ABG Hemoglobin ABG Oxyhemoglobin Oxyhemoglobin Sodium Potassium Chloride 97.4 L Carbon Dioxide 32 H BUN Creatinine 0.5 L Glucose 135 H POC Glucose 151 H 140 H Lactic Acid Calcium Phosphorus Magnesium AST ALT Lactate Dehydrogenase CK-MB (CK-2) C-Reactive Protein NT-Pro-B Natriuret Pep Total Protein Albumin Urine WBC (Auto) 12/17/19 12/17/19 12/18/19 17:50 23:46 05:17 WBC RBC Hgb 8.8 L Hct 28.0 L MCHC RDW Lymph % (Auto) Elbert % (Auto) Elbert # Eos # Elbert # (Auto) Eos # (Auto) Seg Neutrophils % Seg Neuts % (Manual) Baso # (Auto) Lymphocytes % (Manual) Monocytes % (Manual) Eosinophils % (Manual) Basophils % (Manual) Seg Neutrophils # Seg Neutrophils # Man Lymphocytes # (Manual) Monocytes # (Manual) Eosinophils # (Manual) Nucleated RBC % Basophils # (Manual) Heparin Anti-Xa Level ABG pH POC ABG pO2 ABG pO2 ABG HCO3 ABG O2 Saturation ABG Base Excess ABG Hemoglobin ABG Oxyhemoglobin Oxyhemoglobin Sodium Potassium Chloride Carbon Dioxide BUN Creatinine Glucose POC Glucose 158 H 150 H Lactic Acid Calcium Phosphorus Magnesium AST ALT Lactate Dehydrogenase CK-MB (CK-2) C-Reactive Protein NT-Pro-B Natriuret Pep Total Protein Albumin Urine WBC (Auto) 12/18/19 12/18/19 12/18/19 05:17 05:49 11:12 WBC RBC Hgb Hct MCHC RDW Lymph % (Auto) Elbert % (Auto) Elbert # Eos # Elbert # (Auto) Eos # (Auto) Seg Neutrophils % Seg Neuts % (Manual) Baso # (Auto) Lymphocytes % (Manual) Monocytes % (Manual) Eosinophils % (Manual) Basophils % (Manual) Seg Neutrophils # Seg Neutrophils # Man Lymphocytes # (Manual) Monocytes # (Manual) Eosinophils # (Manual) Nucleated RBC % Basophils # (Manual) Heparin Anti-Xa Level 0.16 L ABG pH POC ABG pO2 ABG pO2 ABG HCO3 ABG O2 Saturation ABG Base Excess ABG Hemoglobin ABG Oxyhemoglobin Oxyhemoglobin Sodium Potassium Chloride Carbon Dioxide BUN Creatinine Glucose POC Glucose 127 H 191 H Lactic Acid Calcium Phosphorus Magnesium AST ALT Lactate Dehydrogenase CK-MB (CK-2) C-Reactive Protein NT-Pro-B Natriuret Pep Total Protein Albumin Urine WBC (Auto) 12/18/19 12/18/19 12/19/19 17:03 20:16 00:08 WBC RBC Hgb Hct MCHC RDW Lymph % (Auto) [place] % (Auto) [place]bert # Eos # [place] # (Auto) Eos # (Auto) Seg Neutrophils % Seg Neuts % (Manual) Baso # (Auto) Lymphocytes % (Manual) Monocytes % (Manual) Eosinophils % (Manual) Basophils % (Manual) Seg Neutrophils # Seg Neutrophils # Man Lymphocytes # (Manual) Monocytes # (Manual) Eosinophils # (Manual) Nucleated RBC % Basophils # (Manual) Heparin Anti-Xa Level ABG pH POC ABG pO2 ABG pO2 ABG HCO3 ABG O2 Saturation ABG Base Excess ABG Hemoglobin ABG Oxyhemoglobin Oxyhemoglobin Sodium Potassium Chloride Carbon Dioxide BUN Creatinine Glucose POC Glucose 133 H 128 H 129 H Lactic Acid Calcium Phosphorus Magnesium AST ALT Lactate Dehydrogenase CK-MB (CK-2) C-Reactive Protein NT-Pro-B Natriuret Pep Total Protein Albumin Urine WBC (Auto) 12/19/19 12/19/19 12/19/19 04:45 04:45 05:35 WBC RBC Hgb Hct MCHC RDW Lymph % (Auto) [place] % (Auto) [place] # Eos # [place] # (Auto) Eos # (Auto) Seg Neutrophils % Seg Neuts % (Manual) Baso # (Auto) Lymphocytes % (Manual) Monocytes % (Manual) Eosinophils % (Manual) Basophils % (Manual) Seg Neutrophils # Seg Neutrophils # Man Lymphocytes # (Manual) Monocytes # (Manual) Eosinophils # (Manual) Nucleated RBC % Basophils # (Manual) Heparin Anti-Xa Level 0.17 L ABG pH POC ABG pO2 ABG pO2 ABG HCO3 ABG O2 Saturation ABG Base Excess ABG Hemoglobin ABG Oxyhemoglobin Oxyhemoglobin Sodium Potassium Chloride Carbon Dioxide BUN Creatinine Glucose POC Glucose 120 H Lactic Acid Calcium Phosphorus Magnesium AST ALT Lactate Dehydrogenase 228 H CK-MB (CK-2) C-Reactive Protein NT-Pro-B Natriuret Pep Total Protein Albumin Urine WBC (Auto) 12/19/19 12/19/19 12/19/19 09:20 11:32 11:32 WBC 14.6 H RBC 3.08 L Hgb 9.0 L Hct 26.8 L MCHC RDW 15.9 H Lymph % (Auto) [place] % (Auto) [place] # Eos # [place] # (Auto) Eos # (Auto) Seg Neutrophils % Seg Neuts % (Manual) 82.0 H Baso # (Auto) Lymphocytes % (Manual) 10.0 L Monocytes % (Manual) Eosinophils % (Manual) Basophils % (Manual) Seg Neutrophils # Seg Neutrophils # Man 12.0 H Lymphocytes # (Manual) Monocytes # (Manual) 0.9 H Eosinophils # (Manual) Nucleated RBC % 1.0 H Basophils # (Manual) Heparin Anti-Xa Level ABG pH 7.451 H POC ABG pO2 ABG pO2 62.6 L ABG HCO3 33.2 H ABG O2 Saturation 93.8 L ABG Base Excess 8.3 H ABG Hemoglobin 8.3 L ABG Oxyhemoglobin Oxyhemoglobin 91.9 L Sodium Potassium Chloride 95.0 L Carbon Dioxide 33 H BUN 22 H Creatinine 0.6 L Glucose 150 H POC Glucose Lactic Acid Calcium Phosphorus Magnesium AST ALT Lactate Dehydrogenase CK-MB (CK-2) C-Reactive Protein NT-Pro-B Natriuret Pep Total Protein 6.2 L Albumin 2.4 L Urine WBC (Auto) 12/19/19 12/19/19 12/20/19 11:56 18:17 00:09 WBC RBC Hgb Hct MCHC RDW Lymph % (Auto) [place] % (Auto) [place] # Eos # [place] # (Auto) Eos # (Auto) Seg Neutrophils % Seg Neuts % (Manual) Baso # (Auto) Lymphocytes % (Manual) Monocytes % (Manual) Eosinophils % (Manual) Basophils % (Manual) Seg Neutrophils # Seg Neutrophils # Man Lymphocytes # (Manual) Monocytes # (Manual) Eosinophils # (Manual) Nucleated RBC % Basophils # (Manual) Heparin Anti-Xa Level ABG pH POC ABG pO2 ABG pO2 ABG HCO3 ABG O2 Saturation ABG Base Excess ABG Hemoglobin ABG Oxyhemoglobin Oxyhemoglobin Sodium Potassium Chloride Carbon Dioxide BUN Creatinine Glucose POC Glucose 156 H 156 H 155 H Lactic Acid Calcium Phosphorus Magnesium AST ALT Lactate Dehydrogenase CK-MB (CK-2) C-Reactive Protein NT-Pro-B Natriuret Pep Total Protein Albumin Urine WBC (Auto) 12/20/19 12/20/19 05:26 06:02 WBC RBC Hgb Hct MCHC RDW Lymph % (Auto) [place] % (Auto) [place] # Eos # [place] # (Auto) Eos # (Auto) Seg Neutrophils % Seg Neuts % (Manual) Baso # (Auto) Lymphocytes % (Manual) Monocytes % (Manual) Eosinophils % (Manual) Basophils % (Manual) Seg Neutrophils # Seg Neutrophils # Man Lymphocytes # (Manual) Monocytes # (Manual) Eosinophils # (Manual) Nucleated RBC % Basophils # (Manual) Heparin Anti-Xa Level 0.19 L ABG pH POC ABG pO2 ABG pO2 ABG HCO3 ABG O2 Saturation ABG Base Excess ABG Hemoglobin ABG Oxyhemoglobin Oxyhemoglobin Sodium Potassium Chloride Carbon Dioxide BUN Creatinine Glucose POC Glucose 137 H Lactic Acid Calcium Phosphorus Magnesium AST ALT Lactate Dehydrogenase CK-MB (CK-2) C-Reactive Protein NT-Pro-B Natriuret Pep Total Protein Albumin Urine WBC (Auto) Chest x-ray: other (none today) Allied health notes reviewed: nursing
[2019-12-20] MEDS: LORazepam 2 MG/ML VIAL IV PRN (15:59)
[2019-12-20] MEDS: QUEtiapine 100 MG TAB PO SCH (21:38)
[2019-12-20] MEDS: POLYETHYLENE GLYCOL 3350 17 GM POWDER PO SCH (21:40)
[2019-12-21] MEDS: INSULIN LISPRO 100 UNIT/ML VIAL 3 mL SUB-Q SCH ×4 (00:07→18:04)
[2019-12-21] MEDS: METOPROLOL TARTRATE 50 MG TAB PO SCH ×3 (05:57→21:09)
[2019-12-21 05:59] LABS: Basophils # (Auto) 0.1 K/mm3 (0.0-0.1); Basophils % (Auto) 0.7 % (0.0-1.8); Eosinophils # (Auto) 0.3 K/mm3 (0.0-0.4); Eosinophils % (Auto) 2.3 % (0.0-4.3); Hematocrit 27.4 % (35.5-45.6); Hemoglobin 8.9 gm/dl (11.8-15.2); Lymphocytes # (Auto) 1.5 K/mm3 (1.2-5.4); Lymphocytes % (Auto) 12.1 % (13.4-35.0); Mean Corpuscular HGB Conc 33 % (32-34); Mean Corpuscular Volume 88 fl (84-94); Monocytes % (Auto) 7.8 % (0.0-7.3); Platelet Count 313 K/mm3 (140-440); Red Blood Count 3.09 M/mm3 (3.65-5.03); Red Cell Distribution Width 15.8 % (13.2-15.2)
[2019-12-21 06:11] LABS: Blood Urea Nitrogen 27 mg/dL (9-20); Calcium 9.6 mg/dL (8.4-10.2); Hemolysis Index 0
[2019-12-21 06:17] LABS: BUN/Creatinine Ratio 39
[2019-12-21] MEDS: fentaNYL DRIP Premix 2,000 MCG/100 ML BAG IV SCH ×4 (07:36→23:29)
[2019-12-21] MEDS: DOCUSATE SODIUM 100 MG/10 ML ORAL LIQD FEEDTUBE SCH ×2 (09:44→21:10)
[2019-12-21] MEDS: AMIODARONE 200 MG TAB PO SCH ×2 (09:44→21:10)
[2019-12-21] MEDS: FAMOTIDINE 20 MG TAB PO SCH ×2 (09:45→21:08)
[2019-12-21] MEDS: QUEtiapine 25 MG TAB PO SCH (09:45)
--- NOTE | 2019-12-21 10:20 | Progress Note ---
Assessment and Plan Cultures: Blood culture 12/02/2019 negative Blood culture 11/24/2019 negative Urine culture 11/24/2019 negative COVID-19 negative x2 12/04/2019 resp culture: PsA 12/06/2019 blood cultures: No growth today MRSA PCR negative A/P: 64-year-old male past medical history hypertension, COPD, CAD, CHF with reduced ejection fraction admitted with acute hypoxic respiratory failure likely secondary to pneumonia #Sepsis: With intermittent low-grade fever 100 resolved for > 48 hours, likely due to PE/DVT. #Acute hypoxemic respiratory failure: Likely secondary to pneumonia/PE, COVID-19 testing negative x 2. Remains intubated, failed CPAP trial. + R pleural effusion/endobronchial plugging #Bilateral pneumonia: COVID-19 negative twice. Culture grew Pseudomonas, pansensitive. Completed abx. Repeat chest x-ray with persistent right base opacity, concerning for possible effusion. CT showed PE. #CHF: per primary team #COPD: per pulmonary #PE/right DVT: on anticoagulation per primary. Recs: -awaiting R thoracentesis, followed by possible bronchoscopy -Monitor off antibiotics-completed 10-day cefepime course on 12/15/2019 Chet Saha MD, FACP [facility] ([facility]) C: [phone] O: [phone] F: [phone] Subjective Date of service: 12/21/19 Principal diagnosis: Ac hypoxemic resp failure; Pneumonia; PUI COVID-19; CHF; COPD; HTN Interval history: No fever. Remains intubated, sedated on the vent. Objective - Exam Narrative Exam: Physical Exam: Constitutional: opens eyes at times, intubated, on the vent Head, Ears, Nose: Normocephalic, atraumatic. External ears, nose normal Eyes: Conjunctivae/corneas clear. No icterus. No ptosis. Neck: intubated Oral: intubated Cardiovascular: S1, S2 + Respiratory: AE fair bilaterally and equal GI: Soft, bowel sounds + Musculoskeletal: No pedal edema, no cyanosis. Skin: No rash or abscess Hem/Lymphatic: No palpable cervical or supraclavicular nodes. No lymphangitis Psych: no agitation Neurological: opens eyes, sedated, intubated, on the vent, exam limited - Constitutional Vitals: Vital Signs Temp Pulse Resp BP Pulse Ox 99.2 F 85 11 L 106/69 96 12/21/19 02:47 12/21/19 09:31 12/21/19 09:31 12/21/19 09:31 12/21/19 09:31 Temperature -Last 24 Hours Temperature 99.2 F Temperature 99.4 F Temperature 98.8 F Temperature 97.9 F Temperature 97.3 F - Labs CBC & Chem 7: 12/21/19 05:31 12/21/19 05:31 Labs: Abnormal lab results 12/20/19 12/20/19 12/21/19 Range/Units 18:17 23:34 05:31 WBC 12.7 H (4.5-11.0) K/mm3 RBC 3.09 L (3.65-5.03) M/mm3 Hgb 8.9 L (11.8-15.2) gm/dl Hct 27.4 L (35.5-45.6) % RDW 15.8 H (13.2-15.2) % Lymph % (Auto) 12.1 L (13.4-35.0) % [place] % (Auto) 7.8 H (0.0-7.3) % [place] # (Auto) 1.0 H (0.0-0.8) K/mm3 Seg Neutrophils % 77.1 H (40.0-70.0) % Seg Neutrophils # 9.8 H (1.8-7.7) K/mm3 Chloride (98-107) mmol/L Carbon Dioxide (22-30) mmol/L BUN (9-20) mg/dL Creatinine (0.8-1.3) mg/dL Glucose (75-100) mg/dL POC Glucose 128 H 145 H (70-105) 12/21/19 12/21/19 Range/Units 05:31 05:38 WBC (4.5-11.0) K/mm3 RBC (3.65-5.03) M/mm3 Hgb (11.8-15.2) gm/dl Hct (35.5-45.6) % RDW (13.2-15.2) % Lymph % (Auto) (13.4-35.0) % [place] % (Auto) (0.0-7.3) % [place] # (Auto) (0.0-0.8) K/mm3 Seg Neutrophils % (40.0-70.0) % Seg Neutrophils # (1.8-7.7) K/mm3 Chloride 96.9 L (98-107) mmol/L Carbon Dioxide 37 H (22-30) mmol/L BUN 27 H (9-20) mg/dL Creatinine 0.7 L (0.8-1.3) mg/dL Glucose 140 H (75-100) mg/dL POC Glucose 151 H (70-105)
[2019-12-21 10:44] LABS: INR 1.05 (0.87-1.13)
[2019-12-21 10:45] LABS: Partial Thromboplastin Time 23.9 Sec. (24.2-36.6)
--- NOTE | 2019-12-21 11:03 | Progress Note ---
Assessment and Plan - Patient Problems (1) Acute respiratory failure Current Visit: Yes Status: Acute (2) Bilateral pneumonia Current Visit: Yes Status: Acute (3) COPD exacerbation Current Visit: No Status: Acute (4) Hypertension Current Visit: No Status: Acute Qualifiers: Hypertension type: essential hypertension Qualified Code(s): I10 - Essential (primary) hypertension (5) Cardiomyopathy Current Visit: Yes Status: Acute (6) Paroxysmal atrial fibrillation Current Visit: Yes Status: Acute Subjective Date of service: 12/21/19 Principal diagnosis: Ac hypoxemic resp failure; Pneumonia; PUI COVID-19; CHF; COPD; HTN Interval history: PT ON VENT' Objective Vital Signs Temp Pulse Pulse Resp Resp BP Pulse Ox 12/21/19 09:31 85 11 L 106/69 96 12/21/19 09:00 85 12 106/69 95 12/21/19 08:31 85 13 109/74 96 12/21/19 08:00 86 15 109/74 94 12/21/19 07:31 108 H 23 106/77 93 12/21/19 07:10 82 3 L 101/74 96 12/21/19 07:00 84 17 101/74 97 12/21/19 06:31 84 13 106/77 97 12/21/19 06:00 90 16 106/77 12/21/19 05:57 88 108/68 12/21/19 05:31 86 13 121/80 96 12/21/19 05:00 85 12 108/68 95 12/21/19 04:31 86 12 121/80 94 12/21/19 04:00 92 H 92 H 15 121/80 91 12/21/19 03:49 101 H 111/73 95 12/21/19 03:31 92 H 19 111/73 91 12/21/19 03:00 95 H 16 111/73 97 12/21/19 02:47 99.2 F 12/21/19 02:31 87 14 107/75 96 12/21/19 02:00 88 15 107/75 12/21/19 01:31 88 15 104/70 96 12/21/19 01:00 87 12 104/70 98 12/21/19 00:31 84 15 97/70 96 12/21/19 00:00 83 83 12 97/70 97 12/20/19 23:48 85 95/69 96 12/20/19 23:33 86 13 95/69 97 12/20/19 23:31 85 12 95/69 97 12/20/19 23:30 99.4 F 12/20/19 23:00 85 16 95/69 97 12/20/19 22:31 81 13 113/74 97 12/20/19 22:00 86 13 113/74 12/20/19 21:38 87 110/78 12/20/19 21:31 87 12 110/78 96 12/20/19 21:00 87 11 L 110/78 94 12/20/19 20:31 87 13 114/68 93 12/20/19 20:00 84 84 12 114/68 94 12/20/19 19:40 98.8 F 12/20/19 19:31 93 H 17 214/104 91 12/20/19 19:02 124 H 130/90 94 12/20/19 19:01 129 H 23 113/78 12/20/19 18:31 98 H 24 113/78 95 12/20/19 18:01 91 H 19 113/78 97 12/20/19 17:31 89 15 106/73 97 12/20/19 17:00 85 12 106/73 96 12/20/19 16:41 87 130/90 97 12/20/19 16:33 81 130/90 95 12/20/19 16:31 81 15 130/90 96 12/20/19 16:01 93 H 21 130/90 97 12/20/19 16:00 97.9 F 99 H 97 H 16 98 12/20/19 15:31 106 H 26 H 105/77 93 12/20/19 15:00 83 13 105/77 97 12/20/19 14:31 82 13 113/81 96 12/20/19 14:00 84 12 111/77 96 12/20/19 13:31 86 15 113/81 97 12/20/19 13:04 83 113/81 12/20/19 13:00 86 14 113/81 96 12/20/19 12:31 84 13 108/72 95 12/20/19 12:10 84 108/72 98 12/20/19 12:00 97.3 F L 82 85 12 16 108/72 98 12/20/19 11:31 84 14 109/73 98 - Physical Examination General: Other (intubated on the vent) HEENT: Positive: PERRL Neck: Positive: neck supple Cardiac: Positive: Reg Rate and Rhythm Lungs: Positive: Rhonchi (MILD) Neuro: Positive: Other (Intubated and sedated, on the vent) Abdomen: Positive: Soft Skin: Positive: Clear Extremities: Absent: edema - Labs and Meds Coagulation 12/21/19 Range/Units 10:13 PT 13.8 (12.2-14.9) Sec. INR 1.05 (0.87-1.13) APTT 23.9 L (24.2-36.6) Sec. CBC 12/21/19 Range/Units 05:31 WBC 12.7 H (4.5-11.0) K/mm3 RBC 3.09 L (3.65-5.03) M/mm3 Hgb 8.9 L (11.8-15.2) gm/dl Hct 27.4 L (35.5-45.6) % Plt Count 313 (140-440) K/mm3 Lymph # (Auto) 1.5 (1.2-5.4) K/mm3 [place] # (Auto) 1.0 H (0.0-0.8) K/mm3 Eos # (Auto) 0.3 (0.0-0.4) K/mm3 Baso # (Auto) 0.1 (0.0-0.1) K/mm3 Comprehensive Metabolic Panel 12/21/19 Range/Units 05:31 Sodium 140 (137-145) mmol/L Potassium 4.9 (3.6-5.0) mmol/L Chloride 96.9 L (98-107) mmol/L Carbon Dioxide 37 H (22-30) mmol/L BUN 27 H (9-20) mg/dL Creatinine 0.7 L (0.8-1.3) mg/dL Glucose 140 H (75-100) mg/dL Calcium 9.6 (8.4-10.2) mg/dL - Allied health notes Allied health notes reviewed: nursing
--- NOTE | 2019-12-21 12:51 | Progress Note ---
Assessment and Plan Acute hypoxemic respiratory failure Bilateral pneumonia, community acquired. Acute LLL branch P.E. Acute DVT Person under investigation for COVID-19 infection. Acute congestive heart failure exacerbation. History of cerebrovascular accident. Acute chronic obstructive pulmonary disease exacerbation. Hypertension and hypertensive urgency at presentation. History of arthritis. Leukocytosis. Lactic acidosis. Oropharyngeal dysphagia - follow thoracentesis studies - resume IV Heparin for VTE after procedure - continue Flomax dose at 0.8 mg qhs - bronchoscopy if no re-expansion post thoracentesis - Surgery evaluation ongoing for tracheostomy (discussed indications with his ) - follow BAL studies - continue daily SAT's and SBT assessment as tolerated - continue care as below otherwise; - continue low dose seroquel - COVID isolation per facility protocol - free water for hypernatremia - continue diuresis while following electrolytes / I's & O's - continue to wean oxygen for O2 sat's > 92% - continue bronchodilators with pulmonary hygiene per RT - VAP bundle addressed (Aspiration precautions, HOB >40) - continue to wean per pulmonary driven protocols - sedation target is RASS 0 to -1 - continue prn analgesia per CPOT score - follow clinically re: fever curves / trend WBC - Avoid delirium (no benzodiazepines if they can be avoided) - Maintain sleep-wake cycle - enteral nutrition at goal rate as tolerated - continue accucheck's with glycemic control per SSI for target blood glucose goal of 140-180 mg/dL while critically ill; Avoid hypoglycemia - for VTE he is on IV Heparin - continue stress ulcer prophylaxis with Famotidine - continue mobility protocols for pressure ulcer prophylaxis - continue fall precautions - continue wound care management per RN / WCT - Supportive transfusions to keep HgB>7g/dL - CXR's and ABG's prn - Continue to monitor neurologic function - Continue chronic home medications - Continue all supportive care ........ re-evaluate in am & prn CONDITION: CRITICAL PROGNOSIS: GUARDED CODE STATUS: FULL CODE The high probability of a clinically significant, sudden or life threatening deterioration of the [Respiratory, cardiovascular & neurological] system(s) required my full and direct attention, intervention and personal management. The aggregate critical care time was [34] minutes without overlap. Time includes spent on [x] Data Review and interpretation [x] Patient assessment and monitoring of vital signs [x] Documentation [x] Medication orders and management Subjective Date of service: 12/21/19 Principal diagnosis: Ac hypoxemic resp failure; Pneumonia; PUI COVID-19; CHF; COPD; HTN Interval history: Patient is seen today for: Acute hypoxemic respiratory failure; Adan. Pneumonia (CAP); PUI COVID-19 infection; AE-CHF; AE-COPD; H/O CVA; HTN Seen and examined at bedside; 24 hour events reviewed; nursing and respiratory care staff consulted; no adverse overnight events reported to me; resting peacefully in bed; remains on MVS; to go for thoracentesis this am; AMS is persistent; weaning tenuously still Objective Vital Signs - 12hr 12/21/19 12/21/19 12/21/19 01:00 01:31 02:00 Temperature Pulse Rate 87 88 88 Pulse Rate [ From Monitor] Respiratory 12 15 15 Rate Blood Pressure 104/70 104/70 107/75 O2 Sat by Pulse 98 96 Oximetry 12/21/19 12/21/19 12/21/19 02:31 02:47 03:00 Temperature 99.2 F Pulse Rate 87 95 H Pulse Rate [ From Monitor] Respiratory 14 16 Rate Blood Pressure 107/75 111/73 O2 Sat by Pulse 96 97 Oximetry 12/21/19 12/21/19 12/21/19 03:31 03:49 04:00 Temperature Pulse Rate 92 H 101 H 92 H Pulse Rate [ 92 H From Monitor] Respiratory 19 15 Rate Blood Pressure 111/73 111/73 121/80 O2 Sat by Pulse 91 95 91 Oximetry 12/21/19 12/21/19 12/21/19 04:31 05:00 05:31 Temperature Pulse Rate 86 85 86 Pulse Rate [ From Monitor] Respiratory 12 12 13 Rate Blood Pressure 121/80 108/68 121/80 O2 Sat by Pulse 94 95 96 Oximetry 12/21/19 12/21/19 12/21/19 05:57 06:00 06:31 Temperature Pulse Rate 88 90 84 Pulse Rate [ From Monitor] Respiratory 16 13 Rate Blood Pressure 108/68 106/77 106/77 O2 Sat by Pulse 97 Oximetry 12/21/19 12/21/19 12/21/19 07:00 07:10 07:31 Temperature Pulse Rate 84 82 108 H Pulse Rate [ From Monitor] Respiratory 17 3 L 23 Rate Blood Pressure 101/74 101/74 106/77 O2 Sat by Pulse 97 96 93 Oximetry 12/21/19 12/21/19 12/21/19 08:00 08:31 09:00 Temperature 99 F Pulse Rate 83 85 85 Pulse Rate [ 86 From Monitor] Respiratory 15 13 12 Rate Blood Pressure 109/74 109/74 106/69 O2 Sat by Pulse 94 96 95 Oximetry 12/21/19 12/21/19 12/21/19 09:31 10:00 10:31 Temperature Pulse Rate 85 89 86 Pulse Rate [ From Monitor] Respiratory 11 L 14 13 Rate Blood Pressure 106/69 101/74 101/74 O2 Sat by Pulse 96 96 97 Oximetry 12/21/19 12/21/19 11:00 11:23 Temperature Pulse Rate 86 87 Pulse Rate [ From Monitor] Respiratory 12 Rate Blood Pressure 103/73 103/73 O2 Sat by Pulse 97 Oximetry Constitutional: no acute distress, agitated, other (elderly and obese male, normocephalic with mildly increased respiratory effort at rest on MVS) Eyes: non-icteric ENT: oropharynx moist, other (ETT 24 cm JASON) Neck: supple, no JVD Effort: very labored Ascultation: Bilateral: diminished breath sounds (bases R>L), rhonchi Percussion: Bilateral: not dull Cardiovascular: irregular rhythm Gastrointestinal: normoactive bowel sounds, soft, non-tender, non-distended Integumentary: normal Extremities: no cyanosis, no edema, pulses normal, no ischemia or petechiae Neurologic: non-focal exam (moves all extremities with extreme agitation), pupils equal and round, motor strength normal and, other (sedated lightly) Psychiatric: other (unable to assess re: AMS) CBC and BMP: 12/22/19 05:10 12/22/19 05:10 ABG, PT/INR, D-dimer: ABG POC ABG pCO2 45.1 mmHg (32.0-48.0) 12/02/19 12:58 POC ABG pO2 78.1 mmHg (83-108) L 12/02/19 12:58 POC ABG HCO3 29.9 12/02/19 12:58 ABG pH 7.451 pH Units (7.350-7.450) H 12/19/19 09:20 ABG pCO2 48.7 mm Hg 12/19/19 09:20 ABG pO2 62.6 mm Hg (80.0-90.0) L 12/19/19 09:20 ABG O2 Saturation 93.8 % (95.0-99.0) L 12/19/19 09:20 PT/INR, D-dimer PT 13.8 Sec. (12.2-14.9) 12/21/19 10:13 INR 1.05 (0.87-1.13) 12/21/19 10:13 Abnormal lab findings: Abnormal Labs 11/24/19 11/24/19 11/24/19 02:53 02:53 03:45 WBC 14.3 H RBC Hgb Hct MCHC RDW 17.2 H Lymph % (Auto) [place] % (Auto) [place] # Eos # [place] # (Auto) Eos # (Auto) Seg Neutrophils % Seg Neuts % (Manual) Baso # (Auto) Lymphocytes % (Manual) Monocytes % (Manual) Eosinophils % (Manual) Basophils % (Manual) Seg Neutrophils # Seg Neutrophils # Man 8.3 H Lymphocytes # (Manual) Monocytes # (Manual) 0.9 H Eosinophils # (Manual) Nucleated RBC % Basophils # (Manual) APTT Heparin Anti-Xa Level ABG pH 7.313 L POC ABG pO2 ABG pO2 102.8 H ABG HCO3 ABG O2 Saturation ABG Base Excess -2.9 L ABG Hemoglobin ABG Oxyhemoglobin Oxyhemoglobin 93.9 L Sodium Potassium Chloride Carbon Dioxide BUN Creatinine Glucose 195 H POC Glucose Lactic Acid Calcium Phosphorus Magnesium AST ALT Lactate Dehydrogenase CK-MB (CK-2) 4.3 H C-Reactive Protein NT-Pro-B Natriuret Pep 1181 H Total Protein Albumin Urine WBC (Auto) 11/24/19 11/24/19 11/24/19 04:53 04:53 10:37 WBC RBC Hgb Hct MCHC RDW Lymph % (Auto) [place] % (Auto) [place] # Eos # [place] # (Auto) Eos # (Auto) Seg Neutrophils % Seg Neuts % (Manual) Baso # (Auto) Lymphocytes % (Manual) Monocytes % (Manual) Eosinophils % (Manual) Basophils % (Manual) Seg Neutrophils # Seg Neutrophils # Man Lymphocytes # (Manual) Monocytes # (Manual) Eosinophils # (Manual) Nucleated RBC % Basophils # (Manual) APTT Heparin Anti-Xa Level ABG pH POC ABG pO2 ABG pO2 ABG HCO3 ABG O2 Saturation ABG Base Excess ABG Hemoglobin ABG Oxyhemoglobin Oxyhemoglobin Sodium Potassium Chloride Carbon Dioxide BUN Creatinine Glucose 162 H POC Glucose Lactic Acid 2.40 H* 2.50 H* Calcium Phosphorus Magnesium AST ALT Lactate Dehydrogenase 240 H CK-MB (CK-2) C-Reactive Protein NT-Pro-B Natriuret Pep Total Protein Albumin Urine WBC (Auto) 11/24/19 11/24/19 11/24/19 12:21 14:50 19:54 WBC RBC Hgb Hct MCHC RDW Lymph % (Auto) [place] % (Auto) [place] # Eos # [place] # (Auto) Eos # (Auto) Seg Neutrophils % Seg Neuts % (Manual) Baso # (Auto) Lymphocytes % (Manual) Monocytes % (Manual) Eosinophils % (Manual) Basophils % (Manual) Seg Neutrophils # Seg Neutrophils # Man Lymphocytes # (Manual) Monocytes # (Manual) Eosinophils # (Manual) Nucleated RBC % Basophils # (Manual) APTT Heparin Anti-Xa Level ABG pH POC ABG pO2 ABG pO2 ABG HCO3 ABG O2 Saturation ABG Base Excess ABG Hemoglobin ABG Oxyhemoglobin Oxyhemoglobin Sodium Potassium Chloride Carbon Dioxide BUN Creatinine Glucose POC Glucose 145 H 143 H 124 H Lactic Acid Calcium Phosphorus Magnesium AST ALT Lactate Dehydrogenase CK-MB (CK-2) C-Reactive Protein NT-Pro-B Natriuret Pep Total Protein Albumin Urine WBC (Auto) 11/25/19 11/25/19 11/25/19 00:18 03:18 05:11 WBC 13.7 H RBC Hgb Hct MCHC RDW 17.1 H Lymph % (Auto) 10.8 L [place] % (Auto) 8.7 H [place] # 1.2 H Eos # [place] # (Auto) Eos # (Auto) Seg Neutrophils % 80.2 H Seg Neuts % (Manual) Baso # (Auto) Lymphocytes % (Manual) Monocytes % (Manual) Eosinophils % (Manual) Basophils % (Manual) Seg Neutrophils # 11.0 H Seg Neutrophils # Man Lymphocytes # (Manual) Monocytes # (Manual) Eosinophils # (Manual) Nucleated RBC % Basophils # (Manual) APTT Heparin Anti-Xa Level ABG pH 7.333 L POC ABG pO2 ABG pO2 61.2 L ABG HCO3 ABG O2 Saturation 90.2 L ABG Base Excess ABG Hemoglobin 13.7 L ABG Oxyhemoglobin Oxyhemoglobin 88.2 L Sodium Potassium Chloride Carbon Dioxide BUN Creatinine Glucose POC Glucose 109 H Lactic Acid Calcium Phosphorus Magnesium AST ALT Lactate Dehydrogenase CK-MB (CK-2) C-Reactive Protein NT-Pro-B Natriuret Pep Total Protein Albumin Urine WBC (Auto) 11/25/19 11/25/19 11/26/19 05:11 11:40 03:12 WBC RBC Hgb Hct MCHC RDW Lymph % (Auto) [place] % (Auto) [place] # Eos # [place] # (Auto) Eos # (Auto) Seg Neutrophils % Seg Neuts % (Manual) Baso # (Auto) Lymphocytes % (Manual) Monocytes % (Manual) Eosinophils % (Manual) Basophils % (Manual) Seg Neutrophils # Seg Neutrophils # Man Lymphocytes # (Manual) Monocytes # (Manual) Eosinophils # (Manual) Nucleated RBC % Basophils # (Manual) APTT Heparin Anti-Xa Level ABG pH POC ABG pO2 ABG pO2 155.1 H ABG HCO3 27.8 H ABG O2 Saturation ABG Base Excess ABG Hemoglobin 12.2 L ABG Oxyhemoglobin Oxyhemoglobin Sodium Potassium Chloride Carbon Dioxide BUN 23 H Creatinine Glucose 110 H POC Glucose 108 H Lactic Acid Calcium Phosphorus Magnesium AST ALT Lactate Dehydrogenase CK-MB (CK-2) C-Reactive Protein NT-Pro-B Natriuret Pep Total Protein Albumin Urine WBC (Auto) 11/26/19 11/26/19 11/26/19 06:17 10:43 10:43 WBC 11.4 H RBC Hgb Hct MCHC RDW 17.1 H Lymph % (Auto) [place] % (Auto) [place] # Eos # [place] # (Auto) Eos # (Auto) Seg Neutrophils % Seg Neuts % (Manual) Baso # (Auto) Lymphocytes % (Manual) Monocytes % (Manual) Eosinophils % (Manual) Basophils % (Manual) Seg Neutrophils # Seg Neutrophils # Man Lymphocytes # (Manual) Monocytes # (Manual) Eosinophils # (Manual) Nucleated RBC % Basophils # (Manual) APTT Heparin Anti-Xa Level ABG pH POC ABG pO2 ABG pO2 ABG HCO3 ABG O2 Saturation ABG Base Excess ABG Hemoglobin ABG Oxyhemoglobin Oxyhemoglobin Sodium Potassium Chloride Carbon Dioxide BUN 29 H Creatinine Glucose POC Glucose 107 H Lactic Acid Calcium Phosphorus Magnesium AST ALT Lactate Dehydrogenase CK-MB (CK-2) C-Reactive Protein NT-Pro-B Natriuret Pep Total Protein Albumin Urine WBC (Auto) 11/26/19 11/27/19 11/27/19 17:11 01:53 04:11 WBC RBC Hgb Hct MCHC RDW Lymph % (Auto) [place] % (Auto) [place] # Eos # [place] # (Auto) Eos # (Auto) Seg Neutrophils % Seg Neuts % (Manual) Baso # (Auto) Lymphocytes % (Manual) Monocytes % (Manual) Eosinophils % (Manual) Basophils % (Manual) Seg Neutrophils # Seg Neutrophils # Man Lymphocytes # (Manual) Monocytes # (Manual) Eosinophils # (Manual) Nucleated RBC % Basophils # (Manual) APTT Heparin Anti-Xa Level ABG pH POC ABG pO2 ABG pO2 ABG HCO3 29.2 H ABG O2 Saturation ABG Base Excess 3.4 H ABG Hemoglobin 13.3 L ABG Oxyhemoglobin Oxyhemoglobin 94.5 L Sodium Potassium Chloride Carbon Dioxide BUN Creatinine Glucose POC Glucose 113 H 108 H Lactic Acid Calcium Phosphorus Magnesium AST ALT Lactate Dehydrogenase CK-MB (CK-2) C-Reactive Protein NT-Pro-B Natriuret Pep Total Protein Albumin Urine WBC (Auto) 11/27/19 11/28/19 11/28/19 05:27 05:00 05:25 WBC RBC Hgb Hct MCHC RDW Lymph % (Auto) [place] % (Auto) [place] # Eos # [place] # (Auto) Eos # (Auto) Seg Neutrophils % Seg Neuts % (Manual) Baso # (Auto) Lymphocytes % (Manual) Monocytes % (Manual) Eosinophils % (Manual) Basophils % (Manual) Seg Neutrophils # Seg Neutrophils # Man Lymphocytes # (Manual) Monocytes # (Manual) Eosinophils # (Manual) Nucleated RBC % Basophils # (Manual) APTT Heparin Anti-Xa Level ABG pH POC ABG pO2 68.1 L ABG pO2 ABG HCO3 ABG O2 Saturation ABG Base Excess ABG Hemoglobin ABG Oxyhemoglobin 91.2 L Oxyhemoglobin Sodium Potassium Chloride Carbon Dioxide BUN Creatinine Glucose POC Glucose 111 H 110 H Lactic Acid Calcium Phosphorus Magnesium AST ALT Lactate Dehydrogenase CK-MB (CK-2) C-Reactive Protein NT-Pro-B Natriuret Pep Total Protein Albumin Urine WBC (Auto) 11/28/19 11/28/19 11/28/19 12:08 13:47 13:47 WBC 11.3 H RBC Hgb Hct MCHC RDW 16.1 H Lymph % (Auto) [place] % (Auto) 9.9 H [place] # 1.1 H Eos # [place] # (Auto) Eos # (Auto) Seg Neutrophils % 71.4 H Seg Neuts % (Manual) Baso # (Auto) Lymphocytes % (Manual) Monocytes % (Manual) Eosinophils % (Manual) Basophils % (Manual) Seg Neutrophils # 8.1 H Seg Neutrophils # Man Lymphocytes # (Manual) Monocytes # (Manual) Eosinophils # (Manual) Nucleated RBC % Basophils # (Manual) APTT Heparin Anti-Xa Level ABG pH POC ABG pO2 ABG pO2 ABG HCO3 ABG O2 Saturation ABG Base Excess ABG Hemoglobin ABG Oxyhemoglobin Oxyhemoglobin Sodium Potassium Chloride Carbon Dioxide BUN 23 H Creatinine Glucose 123 H POC Glucose 112 H Lactic Acid Calcium Phosphorus Magnesium AST ALT Lactate Dehydrogenase CK-MB (CK-2) C-Reactive Protein NT-Pro-B Natriuret Pep Total Protein Albumin 3.7 L Urine WBC (Auto) 11/28/19 11/29/19 11/29/19 17:26 03:55 17:04 WBC RBC Hgb Hct MCHC RDW Lymph % (Auto) [place] % (Auto) [place] # Eos # [place] # (Auto) Eos # (Auto) Seg Neutrophils % Seg Neuts % (Manual) Baso # (Auto) Lymphocytes % (Manual) Monocytes % (Manual) Eosinophils % (Manual) Basophils % (Manual) Seg Neutrophils # Seg Neutrophils # Man Lymphocytes # (Manual) Monocytes # (Manual) Eosinophils # (Manual) Nucleated RBC % Basophils # (Manual) APTT Heparin Anti-Xa Level ABG pH POC ABG pO2 ABG pO2 65.7 L ABG HCO3 28.3 H ABG O2 Saturation 93.9 L ABG Base Excess 3.6 H ABG Hemoglobin 13.3 L ABG Oxyhemoglobin Oxyhemoglobin 91.5 L Sodium Potassium Chloride Carbon Dioxide BUN Creatinine Glucose POC Glucose 123 H 119 H Lactic Acid Calcium Phosphorus Magnesium AST ALT Lactate Dehydrogenase CK-MB (CK-2) C-Reactive Protein NT-Pro-B Natriuret Pep Total Protein Albumin Urine WBC (Auto) 11/30/19 11/30/19 11/30/19 04:17 04:17 04:56 WBC 13.4 H RBC Hgb Hct MCHC RDW 15.6 H Lymph % (Auto) [place] % (Auto) [place] # Eos # [place] # (Auto) Eos # (Auto) Seg Neutrophils % Seg Neuts % (Manual) Baso # (Auto) Lymphocytes % (Manual) Monocytes % (Manual) Eosinophils % (Manual) Basophils % (Manual) Seg Neutrophils # Seg Neutrophils # Man Lymphocytes # (Manual) Monocytes # (Manual) Eosinophils # (Manual) Nucleated RBC % Basophils # (Manual) APTT Heparin Anti-Xa Level ABG pH POC ABG pO2 ABG pO2 56.3 L ABG HCO3 29.3 H ABG O2 Saturation 91.5 L ABG Base Excess 4.7 H ABG Hemoglobin 12.1 L ABG Oxyhemoglobin Oxyhemoglobin 89.2 L Sodium 147 H Potassium Chloride Carbon Dioxide BUN 30 H Creatinine Glucose 124 H POC Glucose Lactic Acid Calcium Phosphorus Magnesium AST ALT Lactate Dehydrogenase CK-MB (CK-2) C-Reactive Protein NT-Pro-B Natriuret Pep Total Protein Albumin 3.8 L Urine WBC (Auto) 11/30/19 11/30/19 11/30/19 05:51 11:54 18:17 WBC RBC Hgb Hct MCHC RDW Lymph % (Auto) [place] % (Auto) [place] # Eos # [place] # (Auto) Eos # (Auto) Seg Neutrophils % Seg Neuts % (Manual) Baso # (Auto) Lymphocytes % (Manual) Monocytes % (Manual) Eosinophils % (Manual) Basophils % (Manual) Seg Neutrophils # Seg Neutrophils # Man Lymphocytes # (Manual) Monocytes # (Manual) Eosinophils # (Manual) Nucleated RBC % Basophils # (Manual) APTT Heparin Anti-Xa Level ABG pH POC ABG pO2 ABG pO2 ABG HCO3 ABG O2 Saturation ABG Base Excess ABG Hemoglobin ABG Oxyhemoglobin Oxyhemoglobin Sodium Potassium Chloride Carbon Dioxide BUN Creatinine Glucose POC Glucose 127 H 115 H 143 H Lactic Acid Calcium Phosphorus Magnesium AST ALT Lactate Dehydrogenase CK-MB (CK-2) C-Reactive Protein NT-Pro-B Natriuret Pep Total Protein Albumin Urine WBC (Auto) 12/01/19 12/01/19 12/01/19 01:18 05:22 12:16 WBC RBC Hgb Hct MCHC RDW Lymph % (Auto) [place] % (Auto) [place] # Eos # [place] # (Auto) Eos # (Auto) Seg Neutrophils % Seg Neuts % (Manual) Baso # (Auto) Lymphocytes % (Manual) Monocytes % (Manual) Eosinophils % (Manual) Basophils % (Manual) Seg Neutrophils # Seg Neutrophils # Man Lymphocytes # (Manual) Monocytes # (Manual) Eosinophils # (Manual) Nucleated RBC % Basophils # (Manual) APTT Heparin Anti-Xa Level ABG pH POC ABG pO2 ABG pO2 ABG HCO3 ABG O2 Saturation ABG Base Excess ABG Hemoglobin ABG Oxyhemoglobin Oxyhemoglobin Sodium Potassium 3.5 L Chloride 107.8 H Carbon Dioxide BUN 37 H Creatinine Glucose 157 H POC Glucose 118 H 148 H Lactic Acid Calcium 8.2 L D Phosphorus Magnesium AST 48 H ALT 60 H Lactate Dehydrogenase 194 H CK-MB (CK-2) C-Reactive Protein 8.50 H NT-Pro-B Natriuret Pep Total Protein 5.5 L Albumin 2.8 L Urine WBC (Auto) 12/01/19 12/02/19 12/02/19 18:04 00:05 05:16 WBC 11.4 H RBC Hgb Hct MCHC RDW 15.9 H Lymph % (Auto) [place] % (Auto) 9.9 H [place] # 1.1 H Eos # [place] # (Auto) Eos # (Auto) Seg Neutrophils % 70.3 H Seg Neuts % (Manual) Baso # (Auto) Lymphocytes % (Manual) Monocytes % (Manual) Eosinophils % (Manual) Basophils % (Manual) Seg Neutrophils # 8.0 H Seg Neutrophils # Man Lymphocytes # (Manual) Monocytes # (Manual) Eosinophils # (Manual) Nucleated RBC % Basophils # (Manual) APTT Heparin Anti-Xa Level ABG pH POC ABG pO2 ABG pO2 ABG HCO3 ABG O2 Saturation ABG Base Excess ABG Hemoglobin ABG Oxyhemoglobin Oxyhemoglobin Sodium Potassium Chloride Carbon Dioxide BUN Creatinine Glucose POC Glucose 143 H 107 H Lactic Acid Calcium Phosphorus Magnesium AST ALT Lactate Dehydrogenase CK-MB (CK-2) C-Reactive Protein NT-Pro-B Natriuret Pep Total Protein Albumin Urine WBC (Auto) 12/02/19 12/02/19 12/02/19 05:16 06:03 11:52 WBC RBC Hgb Hct MCHC RDW Lymph % (Auto) [place] % (Auto) [place] # Eos # [place] # (Auto) Eos # (Auto) Seg Neutrophils % Seg Neuts % (Manual) Baso # (Auto) Lymphocytes % (Manual) Monocytes % (Manual) Eosinophils % (Manual) Basophils % (Manual) Seg Neutrophils # Seg Neutrophils # Man Lymphocytes # (Manual) Monocytes # (Manual) Eosinophils # (Manual) Nucleated RBC % Basophils # (Manual) APTT Heparin Anti-Xa Level ABG pH POC ABG pO2 ABG pO2 ABG HCO3 ABG O2 Saturation ABG Base Excess ABG Hemoglobin ABG Oxyhemoglobin Oxyhemoglobin Sodium 146 H Potassium Chloride Carbon Dioxide BUN 28 H Creatinine Glucose 123 H POC Glucose 110 H 152 H Lactic Acid Calcium Phosphorus Magnesium AST ALT Lactate Dehydrogenase CK-MB (CK-2) C-Reactive Protein NT-Pro-B Natriuret Pep Total Protein Albumin Urine WBC (Auto) 12/02/19 12/02/19 12/02/19 12:58 17:58 23:36 WBC RBC Hgb Hct MCHC RDW Lymph % (Auto) [place] % (Auto) [place] # Eos # [place] # (Auto) Eos # (Auto) Seg Neutrophils % Seg Neuts % (Manual) Baso # (Auto) Lymphocytes % (Manual) Monocytes % (Manual) Eosinophils % (Manual) Basophils % (Manual) Seg Neutrophils # Seg Neutrophils # Man Lymphocytes # (Manual) Monocytes # (Manual) Eosinophils # (Manual) Nucleated RBC % Basophils # (Manual) APTT Heparin Anti-Xa Level ABG pH POC ABG pO2 78.1 L ABG pO2 ABG HCO3 ABG O2 Saturation ABG Base Excess ABG Hemoglobin ABG Oxyhemoglobin Oxyhemoglobin Sodium Potassium Chloride Carbon Dioxide BUN Creatinine Glucose POC Glucose 120 H 123 H Lactic Acid Calcium Phosphorus Magnesium AST ALT Lactate Dehydrogenase CK-MB (CK-2) C-Reactive Protein NT-Pro-B Natriuret Pep Total Protein Albumin Urine WBC (Auto) 12/03/19 12/03/19 12/03/19 06:03 06:14 11:46 WBC RBC Hgb Hct MCHC RDW Lymph % (Auto) [place] % (Auto) [place] # Eos # [place] # (Auto) Eos # (Auto) Seg Neutrophils % Seg Neuts % (Manual) Baso # (Auto) Lymphocytes % (Manual) Monocytes % (Manual) Eosinophils % (Manual) Basophils % (Manual) Seg Neutrophils # Seg Neutrophils # Man Lymphocytes # (Manual) Monocytes # (Manual) Eosinophils # (Manual) Nucleated RBC % Basophils # (Manual) APTT Heparin Anti-Xa Level ABG pH POC ABG pO2 ABG pO2 ABG HCO3 ABG O2 Saturation ABG Base Excess ABG Hemoglobin ABG Oxyhemoglobin Oxyhemoglobin Sodium Potassium Chloride Carbon Dioxide BUN Creatinine Glucose POC Glucose 142 H 130 H Lactic Acid Calcium Phosphorus Magnesium AST ALT Lactate Dehydrogenase CK-MB (CK-2) C-Reactive Protein NT-Pro-B Natriuret Pep Total Protein Albumin Urine WBC (Auto) 8.0 H 12/03/19 12/03/19 12/04/19 15:50 17:39 00:04 WBC RBC Hgb Hct MCHC RDW Lymph % (Auto) [place] % (Auto) [place] # Eos # [place] # (Auto) Eos # (Auto) Seg Neutrophils % Seg Neuts % (Manual) Baso # (Auto) Lymphocytes % (Manual) Monocytes % (Manual) Eosinophils % (Manual) Basophils % (Manual) Seg Neutrophils # Seg Neutrophils # Man Lymphocytes # (Manual) Monocytes # (Manual) Eosinophils # (Manual) Nucleated RBC % Basophils # (Manual) APTT Heparin Anti-Xa Level ABG pH POC ABG pO2 ABG pO2 ABG HCO3 ABG O2 Saturation ABG Base Excess ABG Hemoglobin ABG Oxyhemoglobin Oxyhemoglobin Sodium Potassium Chloride Carbon Dioxide BUN Creatinine Glucose POC Glucose 146 H 133 H Lactic Acid Calcium Phosphorus 2.40 L Magnesium AST ALT Lactate Dehydrogenase CK-MB (CK-2) C-Reactive Protein NT-Pro-B Natriuret Pep Total Protein Albumin Urine WBC (Auto) 12/04/19 12/04/19 12/04/19 03:58 03:58 05:22 WBC 12.5 H RBC Hgb 11.2 L Hct 35.2 L MCHC RDW 16.0 H Lymph % (Auto) [place] % (Auto) 9.6 H [place] # 1.2 H Eos # 0.5 H [place] # (Auto) Eos # (Auto) Seg Neutrophils % Seg Neuts % (Manual) Baso # (Auto) Lymphocytes % (Manual) Monocytes % (Manual) Eosinophils % (Manual) Basophils % (Manual) Seg Neutrophils # 8.6 H Seg Neutrophils # Man Lymphocytes # (Manual) Monocytes # (Manual) Eosinophils # (Manual) Nucleated RBC % Basophils # (Manual) APTT Heparin Anti-Xa Level ABG pH POC ABG pO2 ABG pO2 ABG HCO3 ABG O2 Saturation ABG Base Excess ABG Hemoglobin ABG Oxyhemoglobin Oxyhemoglobin Sodium 146 H Potassium Chloride 108.6 H Carbon Dioxide BUN 30 H Creatinine 0.7 L Glucose 121 H POC Glucose 132 H Lactic Acid Calcium Phosphorus Magnesium AST ALT Lactate Dehydrogenase CK-MB (CK-2) C-Reactive Protein NT-Pro-B Natriuret Pep Total Protein Albumin Urine WBC (Auto) 12/04/19 12/04/19 12/05/19 13:26 18:43 00:19 WBC RBC Hgb Hct MCHC RDW Lymph % (Auto) [place] % (Auto) [place] # Eos # [place] # (Auto) Eos # (Auto) Seg Neutrophils % Seg Neuts % (Manual) Baso # (Auto) Lymphocytes % (Manual) Monocytes % (Manual) Eosinophils % (Manual) Basophils % (Manual) Seg Neutrophils # Seg Neutrophils # Man Lymphocytes # (Manual) Monocytes # (Manual) Eosinophils # (Manual) Nucleated RBC % Basophils # (Manual) APTT Heparin Anti-Xa Level ABG pH POC ABG pO2 ABG pO2 ABG HCO3 ABG O2 Saturation ABG Base Excess ABG Hemoglobin ABG Oxyhemoglobin Oxyhemoglobin Sodium Potassium Chloride Carbon Dioxide BUN Creatinine Glucose POC Glucose 185 H 156 H 150 H Lactic Acid Calcium Phosphorus Magnesium AST ALT Lactate Dehydrogenase CK-MB (CK-2) C-Reactive Protein NT-Pro-B Natriuret Pep Total Protein Albumin Urine WBC (Auto) 12/05/19 12/05/19 12/05/19 03:37 03:37 05:14 WBC 16.3 H RBC Hgb 11.4 L Hct MCHC RDW 15.6 H Lymph % (Auto) 9.9 L [place] % (Auto) 9.7 H [place] # 1.6 H Eos # [place] # (Auto) Eos # (Auto) Seg Neutrophils % 78.0 H Seg Neuts % (Manual) Baso # (Auto) Lymphocytes % (Manual) Monocytes % (Manual) Eosinophils % (Manual) Basophils % (Manual) Seg Neutrophils # 12.7 H Seg Neutrophils # Man Lymphocytes # (Manual) Monocytes # (Manual) Eosinophils # (Manual) Nucleated RBC % Basophils # (Manual) APTT Heparin Anti-Xa Level ABG pH POC ABG pO2 ABG pO2 ABG HCO3 ABG O2 Saturation ABG Base Excess ABG Hemoglobin ABG Oxyhemoglobin Oxyhemoglobin Sodium 146 H Potassium Chloride 107.2 H Carbon Dioxide BUN 27 H Creatinine 0.7 L Glucose 171 H POC Glucose 168 H Lactic Acid Calcium Phosphorus Magnesium AST ALT Lactate Dehydrogenase CK-MB (CK-2) C-Reactive Protein NT-Pro-B Natriuret Pep Total Protein Albumin Urine WBC (Auto) 12/05/19 12/05/19 12/05/19 12:31 18:10 23:58 WBC RBC Hgb Hct MCHC RDW Lymph % (Auto) [place] % (Auto) [place] # Eos # [place] # (Auto) Eos # (Auto) Seg Neutrophils % Seg Neuts % (Manual) Baso # (Auto) Lymphocytes % (Manual) Monocytes % (Manual) Eosinophils % (Manual) Basophils % (Manual) Seg Neutrophils # Seg Neutrophils # Man Lymphocytes # (Manual) Monocytes # (Manual) Eosinophils # (Manual) Nucleated RBC % Basophils # (Manual) APTT Heparin Anti-Xa Level ABG pH POC ABG pO2 ABG pO2 ABG HCO3 ABG O2 Saturation ABG Base Excess ABG Hemoglobin ABG Oxyhemoglobin Oxyhemoglobin Sodium Potassium Chloride Carbon Dioxide BUN Creatinine Glucose POC Glucose 159 H 198 H 115 H Lactic Acid Calcium Phosphorus Magnesium AST ALT Lactate Dehydrogenase CK-MB (CK-2) C-Reactive Protein NT-Pro-B Natriuret Pep Total Protein Albumin Urine WBC (Auto) 12/06/19 12/06/19 12/06/19 05:24 05:24 05:25 WBC 14.9 H RBC Hgb 10.8 L Hct 34.0 L MCHC RDW 15.6 H Lymph % (Auto) 10.7 L [place] % (Auto) 8.3 H [place] # 1.2 H Eos # [place] # (Auto) Eos # (Auto) Seg Neutrophils % 78.7 H Seg Neuts % (Manual) Baso # (Auto) Lymphocytes % (Manual) Monocytes % (Manual) Eosinophils % (Manual) Basophils % (Manual) Seg Neutrophils # 11.7 H Seg Neutrophils # Man Lymphocytes # (Manual) Monocytes # (Manual) Eosinophils # (Manual) Nucleated RBC % Basophils # (Manual) APTT Heparin Anti-Xa Level ABG pH POC ABG pO2 ABG pO2 ABG HCO3 ABG O2 Saturation ABG Base Excess ABG Hemoglobin ABG Oxyhemoglobin Oxyhemoglobin Sodium 148 H Potassium 5.1 H Chloride 107.6 H Carbon Dioxide BUN 27 H Creatinine 0.7 L Glucose 155 H POC Glucose 157 H Lactic Acid Calcium Phosphorus Magnesium AST ALT Lactate Dehydrogenase CK-MB (CK-2) C-Reactive Protein NT-Pro-B Natriuret Pep Total Protein Albumin Urine WBC (Auto) 12/07/19 12/07/19 12/07/19 00:13 05:34 11:33 WBC RBC Hgb Hct MCHC RDW Lymph % (Auto) [place] % (Auto) [place] # Eos # [place] # (Auto) Eos # (Auto) Seg Neutrophils % Seg Neuts % (Manual) Baso # (Auto) Lymphocytes % (Manual) Monocytes % (Manual) Eosinophils % (Manual) Basophils % (Manual) Seg Neutrophils # Seg Neutrophils # Man Lymphocytes # (Manual) Monocytes # (Manual) Eosinophils # (Manual) Nucleated RBC % Basophils # (Manual) APTT Heparin Anti-Xa Level ABG pH POC ABG pO2 ABG pO2 ABG HCO3 ABG O2 Saturation ABG Base Excess ABG Hemoglobin ABG Oxyhemoglobin Oxyhemoglobin Sodium Potassium Chloride Carbon Dioxide BUN Creatinine Glucose POC Glucose 142 H 111 H 169 H Lactic Acid Calcium Phosphorus Magnesium AST ALT Lactate Dehydrogenase CK-MB (CK-2) C-Reactive Protein NT-Pro-B Natriuret Pep Total Protein Albumin Urine WBC (Auto) 12/07/19 12/07/19 12/07/19 12:41 13:25 18:19 WBC 12.4 H RBC 3.53 L Hgb 10.2 L Hct 32.1 L MCHC RDW 15.3 H Lymph % (Auto) 10.6 L [place] % (Auto) 7.8 H [place] # 1.0 H Eos # [place] # (Auto) Eos # (Auto) Seg Neutrophils % 77.6 H Seg Neuts % (Manual) Baso # (Auto) Lymphocytes % (Manual) Monocytes % (Manual) Eosinophils % (Manual) Basophils % (Manual) Seg Neutrophils # 9.6 H Seg Neutrophils # Man Lymphocytes # (Manual) Monocytes # (Manual) Eosinophils # (Manual) Nucleated RBC % Basophils # (Manual) APTT Heparin Anti-Xa Level ABG pH POC ABG pO2 ABG pO2 ABG HCO3 ABG O2 Saturation ABG Base Excess ABG Hemoglobin ABG Oxyhemoglobin Oxyhemoglobin Sodium 149 H Potassium Chloride 108.4 H Carbon Dioxide BUN 26 H Creatinine 0.6 L Glucose 149 H POC Glucose 164 H Lactic Acid Calcium Phosphorus Magnesium 2.60 H AST 121 H ALT 145 H Lactate Dehydrogenase CK-MB (CK-2) C-Reactive Protein NT-Pro-B Natriuret Pep Total Protein Albumin 2.6 L Urine WBC (Auto) 12/07/19 12/08/19 12/08/19 22:25 00:02 03:55 WBC 13.3 H RBC 3.40 L Hgb 9.7 L Hct 30.8 L MCHC 31 L RDW 15.5 H Lymph % (Auto) [place] % (Auto) 8.1 H [place] # 1.1 H Eos # [place] # (Auto) Eos # (Auto) Seg Neutrophils % 73.0 H Seg Neuts % (Manual) Baso # (Auto) Lymphocytes % (Manual) Monocytes % (Manual) Eosinophils % (Manual) Basophils % (Manual) Seg Neutrophils # 9.7 H Seg Neutrophils # Man Lymphocytes # (Manual) Monocytes # (Manual) Eosinophils # (Manual) Nucleated RBC % Basophils # (Manual) APTT Heparin Anti-Xa Level 0.12 L ABG pH POC ABG pO2 ABG pO2 ABG HCO3 ABG O2 Saturation ABG Base Excess ABG Hemoglobin ABG Oxyhemoglobin Oxyhemoglobin Sodium Potassium Chloride Carbon Dioxide BUN Creatinine Glucose POC Glucose 151 H Lactic Acid Calcium Phosphorus Magnesium AST ALT Lactate Dehydrogenase CK-MB (CK-2) C-Reactive Protein NT-Pro-B Natriuret Pep Total Protein Albumin Urine WBC (Auto) 12/08/19 12/08/19 12/08/19 03:55 05:21 06:01 WBC RBC Hgb Hct MCHC RDW Lymph % (Auto) [place] % (Auto) [place] # Eos # [place] # (Auto) Eos # (Auto) Seg Neutrophils % Seg Neuts % (Manual) Baso # (Auto) Lymphocytes % (Manual) Monocytes % (Manual) Eosinophils % (Manual) Basophils % (Manual) Seg Neutrophils # Seg Neutrophils # Man Lymphocytes # (Manual) Monocytes # (Manual) Eosinophils # (Manual) Nucleated RBC % Basophils # (Manual) APTT Heparin Anti-Xa Level 0.20 L ABG pH POC ABG pO2 ABG pO2 ABG HCO3 ABG O2 Saturation ABG Base Excess ABG Hemoglobin ABG Oxyhemoglobin Oxyhemoglobin Sodium 149 H Potassium Chloride 108.0 H Carbon Dioxide BUN 28 H Creatinine 0.6 L Glucose 144 H POC Glucose 143 H Lactic Acid Calcium Phosphorus Magnesium AST 98 H ALT 145 H Lactate Dehydrogenase CK-MB (CK-2) C-Reactive Protein NT-Pro-B Natriuret Pep Total Protein 6.0 L Albumin 2.4 L Urine WBC (Auto) 12/08/19 12/08/19 12/08/19 12:08 18:11 23:53 WBC RBC Hgb Hct MCHC RDW Lymph % (Auto) [place] % (Auto) [place] # Eos # [place] # (Auto) Eos # (Auto) Seg Neutrophils % Seg Neuts % (Manual) Baso # (Auto) Lymphocytes % (Manual) Monocytes % (Manual) Eosinophils % (Manual) Basophils % (Manual) Seg Neutrophils # Seg Neutrophils # Man Lymphocytes # (Manual) Monocytes # (Manual) Eosinophils # (Manual) Nucleated RBC % Basophils # (Manual) APTT Heparin Anti-Xa Level ABG pH POC ABG pO2 ABG pO2 ABG HCO3 ABG O2 Saturation ABG Base Excess ABG Hemoglobin ABG Oxyhemoglobin Oxyhemoglobin Sodium Potassium Chloride Carbon Dioxide BUN Creatinine Glucose POC Glucose 172 H 122 H 162 H Lactic Acid Calcium Phosphorus Magnesium AST ALT Lactate Dehydrogenase CK-MB (CK-2) C-Reactive Protein NT-Pro-B Natriuret Pep Total Protein Albumin Urine WBC (Auto) 12/09/19 12/09/19 12/09/19 04:03 04:03 05:53 WBC RBC Hgb 9.1 L Hct 28.9 L MCHC RDW Lymph % (Auto) [place] % (Auto) [place] # Eos # [place] # (Auto) Eos # (Auto) Seg Neutrophils % Seg Neuts % (Manual) Baso # (Auto) Lymphocytes % (Manual) Monocytes % (Manual) Eosinophils % (Manual) Basophils % (Manual) Seg Neutrophils # Seg Neutrophils # Man Lymphocytes # (Manual) Monocytes # (Manual) Eosinophils # (Manual) Nucleated RBC % Basophils # (Manual) APTT Heparin Anti-Xa Level 0.15 L ABG pH POC ABG pO2 ABG pO2 ABG HCO3 ABG O2 Saturation ABG Base Excess ABG Hemoglobin ABG Oxyhemoglobin Oxyhemoglobin Sodium Potassium Chloride Carbon Dioxide BUN Creatinine Glucose POC Glucose 124 H Lactic Acid Calcium Phosphorus Magnesium AST ALT Lactate Dehydrogenase CK-MB (CK-2) C-Reactive Protein NT-Pro-B Natriuret Pep Total Protein Albumin Urine WBC (Auto) 12/09/19 12/09/19 12/10/19 09:43 12:41 00:13 WBC RBC Hgb Hct MCHC RDW Lymph % (Auto) [place] % (Auto) [place] # Eos # [place] # (Auto) Eos # (Auto) Seg Neutrophils % Seg Neuts % (Manual) Baso # (Auto) Lymphocytes % (Manual) Monocytes % (Manual) Eosinophils % (Manual) Basophils % (Manual) Seg Neutrophils # Seg Neutrophils # Man Lymphocytes # (Manual) Monocytes # (Manual) Eosinophils # (Manual) Nucleated RBC % Basophils # (Manual) APTT Heparin Anti-Xa Level ABG pH POC ABG pO2 ABG pO2 ABG HCO3 ABG O2 Saturation ABG Base Excess ABG Hemoglobin ABG Oxyhemoglobin Oxyhemoglobin Sodium Potassium Chloride Carbon Dioxide BUN 25 H Creatinine 0.6 L Glucose 131 H POC Glucose 109 H 120 H Lactic Acid Calcium Phosphorus Magnesium AST ALT Lactate Dehydrogenase CK-MB (CK-2) C-Reactive Protein NT-Pro-B Natriuret Pep Total Protein Albumin Urine WBC (Auto) 12/10/19 12/10/19 12/10/19 04:14 04:14 12:00 WBC 13.3 H RBC 3.34 L Hgb 9.6 L Hct 30.4 L MCHC RDW 15.4 H Lymph % (Auto) [place] % (Auto) [place] # Eos # [place] # (Auto) Eos # (Auto) Seg Neutrophils % Seg Neuts % (Manual) 75.0 H Baso # (Auto) Lymphocytes % (Manual) 13.0 L Monocytes % (Manual) 8.0 H Eosinophils % (Manual) Basophils % (Manual) 2.0 H Seg Neutrophils # Seg Neutrophils # Man 10.0 H Lymphocytes # (Manual) Monocytes # (Manual) 1.1 H Eosinophils # (Manual) Nucleated RBC % Basophils # (Manual) 0.3 H APTT Heparin Anti-Xa Level ABG pH POC ABG pO2 ABG pO2 ABG HCO3 ABG O2 Saturation ABG Base Excess ABG Hemoglobin ABG Oxyhemoglobin Oxyhemoglobin Sodium 147 H Potassium Chloride 108.3 H Carbon Dioxide BUN 21 H Creatinine 0.6 L Glucose 104 H POC Glucose 133 H Lactic Acid Calcium Phosphorus Magnesium AST ALT Lactate Dehydrogenase CK-MB (CK-2) C-Reactive Protein NT-Pro-B Natriuret Pep Total Protein Albumin Urine WBC (Auto) 12/10/19 12/10/19 12/11/19 18:44 21:20 00:08 WBC 14.9 H RBC 3.36 L Hgb 9.6 L Hct 30.5 L MCHC RDW 15.4 H Lymph % (Auto) [place] % (Auto) [place] # Eos # [place] # (Auto) Eos # (Auto) Seg Neutrophils % Seg Neuts % (Manual) Baso # (Auto) Lymphocytes % (Manual) Monocytes % (Manual) Eosinophils % (Manual) Basophils % (Manual) Seg Neutrophils # Seg Neutrophils # Man Lymphocytes # (Manual) Monocytes # (Manual) Eosinophils # (Manual) Nucleated RBC % Basophils # (Manual) APTT Heparin Anti-Xa Level ABG pH POC ABG pO2 ABG pO2 ABG HCO3 ABG O2 Saturation ABG Base Excess ABG Hemoglobin ABG Oxyhemoglobin Oxyhemoglobin Sodium Potassium Chloride Carbon Dioxide BUN Creatinine Glucose POC Glucose 119 H 134 H Lactic Acid Calcium Phosphorus Magnesium AST ALT Lactate Dehydrogenase CK-MB (CK-2) C-Reactive Protein NT-Pro-B Natriuret Pep Total Protein Albumin Urine WBC (Auto) 12/11/19 12/11/19 12/11/19 03:54 07:28 08:36 WBC 11.9 H RBC 3.25 L Hgb 9.6 L Hct 29.2 L MCHC RDW 15.7 H Lymph % (Auto) [place] % (Auto) [place] # Eos # [place] # (Auto) Eos # (Auto) Seg Neutrophils % Seg Neuts % (Manual) Baso # (Auto) Lymphocytes % (Manual) Monocytes % (Manual) Eosinophils % (Manual) Basophils % (Manual) Seg Neutrophils # Seg Neutrophils # Man Lymphocytes # (Manual) Monocytes # (Manual) Eosinophils # (Manual) Nucleated RBC % Basophils # (Manual) APTT Heparin Anti-Xa Level 0.10 L 0.16 L ABG pH POC ABG pO2 ABG pO2 ABG HCO3 ABG O2 Saturation ABG Base Excess ABG Hemoglobin ABG Oxyhemoglobin Oxyhemoglobin Sodium Potassium Chloride Carbon Dioxide BUN Creatinine Glucose POC Glucose Lactic Acid Calcium Phosphorus Magnesium AST ALT Lactate Dehydrogenase CK-MB (CK-2) C-Reactive Protein NT-Pro-B Natriuret Pep Total Protein Albumin Urine WBC (Auto) 12/11/19 12/11/19 12/11/19 08:36 11:45 17:15 WBC RBC Hgb Hct MCHC RDW Lymph % (Auto) [place] % (Auto) [place] # Eos # [place] # (Auto) Eos # (Auto) Seg Neutrophils % Seg Neuts % (Manual) Baso # (Auto) Lymphocytes % (Manual) Monocytes % (Manual) Eosinophils % (Manual) Basophils % (Manual) Seg Neutrophils # Seg Neutrophils # Man Lymphocytes # (Manual) Monocytes # (Manual) Eosinophils # (Manual) Nucleated RBC % Basophils # (Manual) APTT Heparin Anti-Xa Level ABG pH POC ABG pO2 ABG pO2 ABG HCO3 ABG O2 Saturation ABG Base Excess ABG Hemoglobin ABG Oxyhemoglobin Oxyhemoglobin Sodium Potassium Chloride Carbon Dioxide BUN Creatinine 0.5 L Glucose 128 H POC Glucose 136 H 109 H Lactic Acid Calcium Phosphorus Magnesium AST ALT Lactate Dehydrogenase CK-MB (CK-2) C-Reactive Protein NT-Pro-B Natriuret Pep Total Protein Albumin Urine WBC (Auto) 12/12/19 12/12/19 12/12/19 00:03 05:53 05:53 WBC RBC Hgb 8.8 L Hct 27.6 L MCHC RDW Lymph % (Auto) [place] % (Auto) [place] # Eos # [place] # (Auto) Eos # (Auto) Seg Neutrophils % Seg Neuts % (Manual) Baso # (Auto) Lymphocytes % (Manual) Monocytes % (Manual) Eosinophils % (Manual) Basophils % (Manual) Seg Neutrophils # Seg Neutrophils # Man Lymphocytes # (Manual) Monocytes # (Manual) Eosinophils # (Manual) Nucleated RBC % Basophils # (Manual) APTT Heparin Anti-Xa Level 0.22 L ABG pH POC ABG pO2 ABG pO2 ABG HCO3 ABG O2 Saturation ABG Base Excess ABG Hemoglobin ABG Oxyhemoglobin Oxyhemoglobin Sodium Potassium Chloride Carbon Dioxide BUN Creatinine Glucose POC Glucose 116 H Lactic Acid Calcium Phosphorus Magnesium AST ALT Lactate Dehydrogenase CK-MB (CK-2) C-Reactive Protein NT-Pro-B Natriuret Pep Total Protein Albumin Urine WBC (Auto) 12/12/19 12/12/19 12/12/19 09:38 12:18 17:44 WBC RBC Hgb Hct MCHC RDW Lymph % (Auto) [place] % (Auto) [place] # Eos # [place] # (Auto) Eos # (Auto) Seg Neutrophils % Seg Neuts % (Manual) Baso # (Auto) Lymphocytes % (Manual) Monocytes % (Manual) Eosinophils % (Manual) Basophils % (Manual) Seg Neutrophils # Seg Neutrophils # Man Lymphocytes # (Manual) Monocytes # (Manual) Eosinophils # (Manual) Nucleated RBC % Basophils # (Manual) APTT Heparin Anti-Xa Level ABG pH POC ABG pO2 ABG pO2 ABG HCO3 ABG O2 Saturation ABG Base Excess ABG Hemoglobin ABG Oxyhemoglobin Oxyhemoglobin Sodium Potassium Chloride Carbon Dioxide BUN Creatinine Glucose POC Glucose 115 H 146 H 146 H Lactic Acid Calcium Phosphorus Magnesium AST ALT Lactate Dehydrogenase CK-MB (CK-2) C-Reactive Protein NT-Pro-B Natriuret Pep Total Protein Albumin Urine WBC (Auto) 12/12/19 12/13/19 12/13/19 23:33 05:32 05:32 WBC 13.1 H RBC 3.27 L Hgb 9.5 L Hct 29.3 L MCHC RDW 15.6 H Lymph % (Auto) [place] % (Auto) [place] # Eos # [place] # (Auto) Eos # (Auto) Seg Neutrophils % Seg Neuts % (Manual) 74.0 H Baso # (Auto) Lymphocytes % (Manual) 8.0 L Monocytes % (Manual) 9.0 H Eosinophils % (Manual) 5.0 H Basophils % (Manual) Seg Neutrophils # Seg Neutrophils # Man 9.7 H Lymphocytes # (Manual) 1.0 L Monocytes # (Manual) 1.2 H Eosinophils # (Manual) 0.7 H Nucleated RBC % Basophils # (Manual) APTT Heparin Anti-Xa Level 0.20 L ABG pH POC ABG pO2 ABG pO2 ABG HCO3 ABG O2 Saturation ABG Base Excess ABG Hemoglobin ABG Oxyhemoglobin Oxyhemoglobin Sodium Potassium Chloride Carbon Dioxide BUN Creatinine Glucose POC Glucose 126 H Lactic Acid Calcium Phosphorus Magnesium AST ALT Lactate Dehydrogenase CK-MB (CK-2) C-Reactive Protein NT-Pro-B Natriuret Pep Total Protein Albumin Urine WBC (Auto) 12/13/19 12/13/19 12/13/19 05:32 05:46 11:57 WBC RBC Hgb Hct MCHC RDW Lymph % (Auto) [place] % (Auto) [place] # Eos # [place] # (Auto) Eos # (Auto) Seg Neutrophils % Seg Neuts % (Manual) Baso # (Auto) Lymphocytes % (Manual) Monocytes % (Manual) Eosinophils % (Manual) Basophils % (Manual) Seg Neutrophils # Seg Neutrophils # Man Lymphocytes # (Manual) Monocytes # (Manual) Eosinophils # (Manual) Nucleated RBC % Basophils # (Manual) APTT Heparin Anti-Xa Level ABG pH POC ABG pO2 ABG pO2 ABG HCO3 ABG O2 Saturation ABG Base Excess ABG Hemoglobin ABG Oxyhemoglobin Oxyhemoglobin Sodium Potassium Chloride Carbon Dioxide 31 H BUN Creatinine 0.6 L Glucose 114 H POC Glucose 118 H 133 H Lactic Acid Calcium Phosphorus Magnesium AST ALT Lactate Dehydrogenase CK-MB (CK-2) C-Reactive Protein NT-Pro-B Natriuret Pep Total Protein Albumin Urine WBC (Auto) 12/13/19 12/13/19 12/14/19 17:44 23:46 05:32 WBC RBC Hgb Hct MCHC RDW Lymph % (Auto) [place] % (Auto) [place] # Eos # [place] # (Auto) Eos # (Auto) Seg Neutrophils % Seg Neuts % (Manual) Baso # (Auto) Lymphocytes % (Manual) Monocytes % (Manual) Eosinophils % (Manual) Basophils % (Manual) Seg Neutrophils # Seg Neutrophils # Man Lymphocytes # (Manual) Monocytes # (Manual) Eosinophils # (Manual) Nucleated RBC % Basophils # (Manual) APTT Heparin Anti-Xa Level ABG pH POC ABG pO2 ABG pO2 ABG HCO3 ABG O2 Saturation ABG Base Excess ABG Hemoglobin ABG Oxyhemoglobin Oxyhemoglobin Sodium Potassium Chloride Carbon Dioxide BUN Creatinine Glucose POC Glucose 161 H 126 H 139 H Lactic Acid Calcium Phosphorus Magnesium AST ALT Lactate Dehydrogenase CK-MB (CK-2) C-Reactive Protein NT-Pro-B Natriuret Pep Total Protein Albumin Urine WBC (Auto) 12/14/19 12/14/19 12/14/19 06:03 06:03 09:37 WBC RBC Hgb 9.6 L Hct 30.4 L MCHC RDW Lymph % (Auto) [place] % (Auto) [place] # Eos # [place] # (Auto) Eos # (Auto) Seg Neutrophils % Seg Neuts % (Manual) Baso # (Auto) Lymphocytes % (Manual) Monocytes % (Manual) Eosinophils % (Manual) Basophils % (Manual) Seg Neutrophils # Seg Neutrophils # Man Lymphocytes # (Manual) Monocytes # (Manual) Eosinophils # (Manual) Nucleated RBC % Basophils # (Manual) APTT Heparin Anti-Xa Level 0.24 L ABG pH POC ABG pO2 ABG pO2 ABG HCO3 ABG O2 Saturation ABG Base Excess ABG Hemoglobin ABG Oxyhemoglobin Oxyhemoglobin Sodium Potassium Chloride Carbon Dioxide BUN Creatinine 0.6 L Glucose 162 H POC Glucose Lactic Acid Calcium Phosphorus Magnesium AST 71 H ALT 118 H Lactate Dehydrogenase CK-MB (CK-2) C-Reactive Protein NT-Pro-B Natriuret Pep Total Protein 6.2 L Albumin 2.3 L Urine WBC (Auto) 09/21/20 09/21/20 09/22/20 12:06 18:18 00:19 WBC RBC Hgb Hct MCHC RDW Lymph % (Auto) [place] % (Auto) [place] # Eos # [place] # (Auto) Eos # (Auto) Seg Neutrophils % Seg Neuts % (Manual) Baso # (Auto) Lymphocytes % (Manual) Monocytes % (Manual) Eosinophils % (Manual) Basophils % (Manual) Seg Neutrophils # Seg Neutrophils # Man Lymphocytes # (Manual) Monocytes # (Manual) Eosinophils # (Manual) Nucleated RBC % Basophils # (Manual) APTT Heparin Anti-Xa Level ABG pH POC ABG pO2 ABG pO2 ABG HCO3 ABG O2 Saturation ABG Base Excess ABG Hemoglobin ABG Oxyhemoglobin Oxyhemoglobin Sodium Potassium Chloride Carbon Dioxide BUN Creatinine Glucose POC Glucose 147 H 166 H 123 H Lactic Acid Calcium Phosphorus Magnesium AST ALT Lactate Dehydrogenase CK-MB (CK-2) C-Reactive Protein NT-Pro-B Natriuret Pep Total Protein Albumin Urine WBC (Auto) 12/15/19 12/15/19 12/15/19 05:28 05:29 05:29 WBC 14.9 H RBC 3.19 L Hgb 9.1 L Hct 28.7 L MCHC RDW 16.0 H Lymph % (Auto) [place] % (Auto) [place] # Eos # [place] # (Auto) Eos # (Auto) Seg Neutrophils % Seg Neuts % (Manual) Baso # (Auto) Lymphocytes % (Manual) Monocytes % (Manual) Eosinophils % (Manual) Basophils % (Manual) Seg Neutrophils # Seg Neutrophils # Man Lymphocytes # (Manual) Monocytes # (Manual) Eosinophils # (Manual) Nucleated RBC % Basophils # (Manual) APTT Heparin Anti-Xa Level 0.19 L ABG pH POC ABG pO2 ABG pO2 ABG HCO3 ABG O2 Saturation ABG Base Excess ABG Hemoglobin ABG Oxyhemoglobin Oxyhemoglobin Sodium Potassium Chloride Carbon Dioxide BUN Creatinine 0.6 L Glucose 110 H POC Glucose Lactic Acid Calcium Phosphorus Magnesium AST ALT Lactate Dehydrogenase CK-MB (CK-2) C-Reactive Protein NT-Pro-B Natriuret Pep Total Protein Albumin Urine WBC (Auto) 12/15/19 12/15/19 12/15/19 05:53 11:50 17:26 WBC RBC Hgb Hct MCHC RDW Lymph % (Auto) [place] % (Auto) [place] # Eos # [place] # (Auto) Eos # (Auto) Seg Neutrophils % Seg Neuts % (Manual) Baso # (Auto) Lymphocytes % (Manual) Monocytes % (Manual) Eosinophils % (Manual) Basophils % (Manual) Seg Neutrophils # Seg Neutrophils # Man Lymphocytes # (Manual) Monocytes # (Manual) Eosinophils # (Manual) Nucleated RBC % Basophils # (Manual) APTT Heparin Anti-Xa Level ABG pH POC ABG pO2 ABG pO2 ABG HCO3 ABG O2 Saturation ABG Base Excess ABG Hemoglobin ABG Oxyhemoglobin Oxyhemoglobin Sodium Potassium Chloride Carbon Dioxide BUN Creatinine Glucose POC Glucose 119 H 132 H 128 H Lactic Acid Calcium Phosphorus Magnesium AST ALT Lactate Dehydrogenase CK-MB (CK-2) C-Reactive Protein NT-Pro-B Natriuret Pep Total Protein Albumin Urine WBC (Auto) 12/15/19 12/16/19 12/16/19 23:11 05:30 05:46 WBC RBC Hgb 8.8 L Hct 27.9 L MCHC RDW Lymph % (Auto) [place] % (Auto) [place] # Eos # [place] # (Auto) Eos # (Auto) Seg Neutrophils % Seg Neuts % (Manual) Baso # (Auto) Lymphocytes % (Manual) Monocytes % (Manual) Eosinophils % (Manual) Basophils % (Manual) Seg Neutrophils # Seg Neutrophils # Man Lymphocytes # (Manual) Monocytes # (Manual) Eosinophils # (Manual) Nucleated RBC % Basophils # (Manual) APTT Heparin Anti-Xa Level ABG pH POC ABG pO2 ABG pO2 ABG HCO3 ABG O2 Saturation ABG Base Excess ABG Hemoglobin ABG Oxyhemoglobin Oxyhemoglobin Sodium Potassium Chloride Carbon Dioxide BUN Creatinine Glucose POC Glucose 150 H 134 H Lactic Acid Calcium Phosphorus Magnesium AST ALT Lactate Dehydrogenase CK-MB (CK-2) C-Reactive Protein NT-Pro-B Natriuret Pep Total Protein Albumin Urine WBC (Auto) 12/16/19 12/16/19 12/16/19 05:46 05:46 11:44 WBC RBC Hgb Hct MCHC RDW Lymph % (Auto) [place] % (Auto) [place] # Eos # [place] # (Auto) Eos # (Auto) Seg Neutrophils % Seg Neuts % (Manual) Baso # (Auto) Lymphocytes % (Manual) Monocytes % (Manual) Eosinophils % (Manual) Basophils % (Manual) Seg Neutrophils # Seg Neutrophils # Man Lymphocytes # (Manual) Monocytes # (Manual) Eosinophils # (Manual) Nucleated RBC % Basophils # (Manual) APTT Heparin Anti-Xa Level 0.20 L ABG pH POC ABG pO2 ABG pO2 ABG HCO3 ABG O2 Saturation ABG Base Excess ABG Hemoglobin ABG Oxyhemoglobin Oxyhemoglobin Sodium Potassium Chloride Carbon Dioxide 31 H BUN Creatinine 0.5 L Glucose 147 H POC Glucose 164 H Lactic Acid Calcium Phosphorus Magnesium AST ALT Lactate Dehydrogenase CK-MB (CK-2) C-Reactive Protein NT-Pro-B Natriuret Pep Total Protein Albumin Urine WBC (Auto) 12/16/19 12/16/19 12/17/19 17:17 23:49 05:30 WBC 13.9 H RBC 3.27 L Hgb 9.4 L Hct 29.2 L MCHC RDW 16.0 H Lymph % (Auto) [place] % (Auto) 8.8 H [place] # Eos # [place] # (Auto) 1.2 H Eos # (Auto) 0.5 H Seg Neutrophils % 70.5 H Seg Neuts % (Manual) Baso # (Auto) 0.2 H Lymphocytes % (Manual) Monocytes % (Manual) Eosinophils % (Manual) Basophils % (Manual) Seg Neutrophils # 9.8 H Seg Neutrophils # Man Lymphocytes # (Manual) Monocytes # (Manual) Eosinophils # (Manual) Nucleated RBC % Basophils # (Manual) APTT Heparin Anti-Xa Level ABG pH POC ABG pO2 ABG pO2 ABG HCO3 ABG O2 Saturation ABG Base Excess ABG Hemoglobin ABG Oxyhemoglobin Oxyhemoglobin Sodium Potassium Chloride Carbon Dioxide BUN Creatinine Glucose POC Glucose 162 H 144 H Lactic Acid Calcium Phosphorus Magnesium AST ALT Lactate Dehydrogenase CK-MB (CK-2) C-Reactive Protein NT-Pro-B Natriuret Pep Total Protein Albumin Urine WBC (Auto) 12/17/19 12/17/19 12/17/19 05:30 06:06 11:50 WBC RBC Hgb Hct MCHC RDW Lymph % (Auto) [place] % (Auto) [place] # Eos # [place] # (Auto) Eos # (Auto) Seg Neutrophils % Seg Neuts % (Manual) Baso # (Auto) Lymphocytes % (Manual) Monocytes % (Manual) Eosinophils % (Manual) Basophils % (Manual) Seg Neutrophils # Seg Neutrophils # Man Lymphocytes # (Manual) Monocytes # (Manual) Eosinophils # (Manual) Nucleated RBC % Basophils # (Manual) APTT Heparin Anti-Xa Level ABG pH POC ABG pO2 ABG pO2 ABG HCO3 ABG O2 Saturation ABG Base Excess ABG Hemoglobin ABG Oxyhemoglobin Oxyhemoglobin Sodium Potassium Chloride 97.4 L Carbon Dioxide 32 H BUN Creatinine 0.5 L Glucose 135 H POC Glucose 151 H 140 H Lactic Acid Calcium Phosphorus Magnesium AST ALT Lactate Dehydrogenase CK-MB (CK-2) C-Reactive Protein NT-Pro-B Natriuret Pep Total Protein Albumin Urine WBC (Auto) 12/17/19 12/17/19 12/18/19 17:50 23:46 05:17 WBC RBC Hgb 8.8 L Hct 28.0 L MCHC RDW Lymph % (Auto) [place] % (Auto) [place] # Eos # [place] # (Auto) Eos # (Auto) Seg Neutrophils % Seg Neuts % (Manual) Baso # (Auto) Lymphocytes % (Manual) Monocytes % (Manual) Eosinophils % (Manual) Basophils % (Manual) Seg Neutrophils # Seg Neutrophils # Man Lymphocytes # (Manual) Monocytes # (Manual) Eosinophils # (Manual) Nucleated RBC % Basophils # (Manual) APTT Heparin Anti-Xa Level ABG pH POC ABG pO2 ABG pO2 ABG HCO3 ABG O2 Saturation ABG Base Excess ABG Hemoglobin ABG Oxyhemoglobin Oxyhemoglobin Sodium Potassium Chloride Carbon Dioxide BUN Creatinine Glucose POC Glucose 158 H 150 H Lactic Acid Calcium Phosphorus Magnesium AST ALT Lactate Dehydrogenase CK-MB (CK-2) C-Reactive Protein NT-Pro-B Natriuret Pep Total Protein Albumin Urine WBC (Auto) 12/18/19 12/18/19 12/18/19 05:17 05:49 11:12 WBC RBC Hgb Hct MCHC RDW Lymph % (Auto) [place] % (Auto) [place] # Eos # [place] # (Auto) Eos # (Auto) Seg Neutrophils % Seg Neuts % (Manual) Baso # (Auto) Lymphocytes % (Manual) Monocytes % (Manual) Eosinophils % (Manual) Basophils % (Manual) Seg Neutrophils # Seg Neutrophils # Man Lymphocytes # (Manual) Monocytes # (Manual) Eosinophils # (Manual) Nucleated RBC % Basophils # (Manual) APTT Heparin Anti-Xa Level 0.16 L ABG pH POC ABG pO2 ABG pO2 ABG HCO3 ABG O2 Saturation ABG Base Excess ABG Hemoglobin ABG Oxyhemoglobin Oxyhemoglobin Sodium Potassium Chloride Carbon Dioxide BUN Creatinine Glucose POC Glucose 127 H 191 H Lactic Acid Calcium Phosphorus Magnesium AST ALT Lactate Dehydrogenase CK-MB (CK-2) C-Reactive Protein NT-Pro-B Natriuret Pep Total Protein Albumin Urine WBC (Auto) 12/18/19 12/18/19 12/19/19 17:03 20:16 00:08 WBC RBC Hgb Hct MCHC RDW Lymph % (Auto) [place] % (Auto) [place] # Eos # [place] # (Auto) Eos # (Auto) Seg Neutrophils % Seg Neuts % (Manual) Baso # (Auto) Lymphocytes % (Manual) Monocytes % (Manual) Eosinophils % (Manual) Basophils % (Manual) Seg Neutrophils # Seg Neutrophils # Man Lymphocytes # (Manual) Monocytes # (Manual) Eosinophils # (Manual) Nucleated RBC % Basophils # (Manual) APTT Heparin Anti-Xa Level ABG pH POC ABG pO2 ABG pO2 ABG HCO3 ABG O2 Saturation ABG Base Excess ABG Hemoglobin ABG Oxyhemoglobin Oxyhemoglobin Sodium Potassium Chloride Carbon Dioxide BUN Creatinine Glucose POC Glucose 133 H 128 H 129 H Lactic Acid Calcium Phosphorus Magnesium AST ALT Lactate Dehydrogenase CK-MB (CK-2) C-Reactive Protein NT-Pro-B Natriuret Pep Total Protein Albumin Urine WBC (Auto) 12/19/19 12/19/19 12/19/19 04:45 04:45 05:35 WBC RBC Hgb Hct MCHC RDW Lymph % (Auto) [place] % (Auto) [place] # Eos # [place] # (Auto) Eos # (Auto) Seg Neutrophils % Seg Neuts % (Manual) Baso # (Auto) Lymphocytes % (Manual) Monocytes % (Manual) Eosinophils % (Manual) Basophils % (Manual) Seg Neutrophils # Seg Neutrophils # Man Lymphocytes # (Manual) Monocytes # (Manual) Eosinophils # (Manual) Nucleated RBC % Basophils # (Manual) APTT Heparin Anti-Xa Level 0.17 L ABG pH POC ABG pO2 ABG pO2 ABG HCO3 ABG O2 Saturation ABG Base Excess ABG Hemoglobin ABG Oxyhemoglobin Oxyhemoglobin Sodium Potassium Chloride Carbon Dioxide BUN Creatinine Glucose POC Glucose 120 H Lactic Acid Calcium Phosphorus Magnesium AST ALT Lactate Dehydrogenase 228 H CK-MB (CK-2) C-Reactive Protein NT-Pro-B Natriuret Pep Total Protein Albumin Urine WBC (Auto) 12/19/19 12/19/19 12/19/19 09:20 11:32 11:32 WBC 14.6 H RBC 3.08 L Hgb 9.0 L Hct 26.8 L MCHC RDW 15.9 H Lymph % (Auto) [place] % (Auto) [place] # Eos # [place] # (Auto) Eos # (Auto) Seg Neutrophils % Seg Neuts % (Manual) 82.0 H Baso # (Auto) Lymphocytes % (Manual) 10.0 L Monocytes % (Manual) Eosinophils % (Manual) Basophils % (Manual) Seg Neutrophils # Seg Neutrophils # Man 12.0 H Lymphocytes # (Manual) Monocytes # (Manual) 0.9 H Eosinophils # (Manual) Nucleated RBC % 1.0 H Basophils # (Manual) APTT Heparin Anti-Xa Level ABG pH 7.451 H POC ABG pO2 ABG pO2 62.6 L ABG HCO3 33.2 H ABG O2 Saturation 93.8 L ABG Base Excess 8.3 H ABG Hemoglobin 8.3 L ABG Oxyhemoglobin Oxyhemoglobin 91.9 L Sodium Potassium Chloride 95.0 L Carbon Dioxide 33 H BUN 22 H Creatinine 0.6 L Glucose 150 H POC Glucose Lactic Acid Calcium Phosphorus Magnesium AST ALT Lactate Dehydrogenase CK-MB (CK-2) C-Reactive Protein NT-Pro-B Natriuret Pep Total Protein 6.2 L Albumin 2.4 L Urine WBC (Auto) 12/19/19 12/19/19 12/20/19 11:56 18:17 00:09 WBC RBC Hgb Hct MCHC RDW Lymph % (Auto) [place] % (Auto) [place] # Eos # [place] # (Auto) Eos # (Auto) Seg Neutrophils % Seg Neuts % (Manual) Baso # (Auto) Lymphocytes % (Manual) Monocytes % (Manual) Eosinophils % (Manual) Basophils % (Manual) Seg Neutrophils # Seg Neutrophils # Man Lymphocytes # (Manual) Monocytes # (Manual) Eosinophils # (Manual) Nucleated RBC % Basophils # (Manual) APTT Heparin Anti-Xa Level ABG pH POC ABG pO2 ABG pO2 ABG HCO3 ABG O2 Saturation ABG Base Excess ABG Hemoglobin ABG Oxyhemoglobin Oxyhemoglobin Sodium Potassium Chloride Carbon Dioxide BUN Creatinine Glucose POC Glucose 156 H 156 H 155 H Lactic Acid Calcium Phosphorus Magnesium AST ALT Lactate Dehydrogenase CK-MB (CK-2) C-Reactive Protein NT-Pro-B Natriuret Pep Total Protein Albumin Urine WBC (Auto) 12/20/19 12/20/19 12/20/19 05:26 06:02 18:17 WBC RBC Hgb Hct MCHC RDW Lymph % (Auto) [place] % (Auto) [place] # Eos # [place] # (Auto) Eos # (Auto) Seg Neutrophils % Seg Neuts % (Manual) Baso # (Auto) Lymphocytes % (Manual) Monocytes % (Manual) Eosinophils % (Manual) Basophils % (Manual) Seg Neutrophils # Seg Neutrophils # Man Lymphocytes # (Manual) Monocytes # (Manual) Eosinophils # (Manual) Nucleated RBC % Basophils # (Manual) APTT Heparin Anti-Xa Level 0.19 L ABG pH POC ABG pO2 ABG pO2 ABG HCO3 ABG O2 Saturation ABG Base Excess ABG Hemoglobin ABG Oxyhemoglobin Oxyhemoglobin Sodium Potassium Chloride Carbon Dioxide BUN Creatinine Glucose POC Glucose 137 H 128 H Lactic Acid Calcium Phosphorus Magnesium AST ALT Lactate Dehydrogenase CK-MB (CK-2) C-Reactive Protein NT-Pro-B Natriuret Pep Total Protein Albumin Urine WBC (Auto) 12/20/19 12/21/19 12/21/19 23:34 05:31 05:31 WBC 12.7 H RBC 3.09 L Hgb 8.9 L Hct 27.4 L MCHC RDW 15.8 H Lymph % (Auto) 12.1 L [place] % (Auto) 7.8 H [place] # Eos # [place] # (Auto) 1.0 H Eos # (Auto) Seg Neutrophils % 77.1 H Seg Neuts % (Manual) Baso # (Auto) Lymphocytes % (Manual) Monocytes % (Manual) Eosinophils % (Manual) Basophils % (Manual) Seg Neutrophils # 9.8 H Seg Neutrophils # Man Lymphocytes # (Manual) Monocytes # (Manual) Eosinophils # (Manual) Nucleated RBC % Basophils # (Manual) APTT Heparin Anti-Xa Level ABG pH POC ABG pO2 ABG pO2 ABG HCO3 ABG O2 Saturation ABG Base Excess ABG Hemoglobin ABG Oxyhemoglobin Oxyhemoglobin Sodium Potassium Chloride 96.9 L Carbon Dioxide 37 H BUN 27 H Creatinine 0.7 L Glucose 140 H POC Glucose 145 H Lactic Acid Calcium Phosphorus Magnesium AST ALT Lactate Dehydrogenase CK-MB (CK-2) C-Reactive Protein NT-Pro-B Natriuret Pep Total Protein Albumin Urine WBC (Auto) 12/21/19 12/21/19 12/21/19 05:38 10:13 11:51 WBC RBC Hgb Hct MCHC RDW Lymph % (Auto) [place] % (Auto) [place] # Eos # [place] # (Auto) Eos # (Auto) Seg Neutrophils % Seg Neuts % (Manual) Baso # (Auto) Lymphocytes % (Manual) Monocytes % (Manual) Eosinophils % (Manual) Basophils % (Manual) Seg Neutrophils # Seg Neutrophils # Man Lymphocytes # (Manual) Monocytes # (Manual) Eosinophils # (Manual) Nucleated RBC % Basophils # (Manual) APTT 23.9 L Heparin Anti-Xa Level < 0.10 L ABG pH POC ABG pO2 ABG pO2 ABG HCO3 ABG O2 Saturation ABG Base Excess ABG Hemoglobin ABG Oxyhemoglobin Oxyhemoglobin Sodium Potassium Chloride Carbon Dioxide BUN Creatinine Glucose POC Glucose 151 H 145 H Lactic Acid Calcium Phosphorus Magnesium AST ALT Lactate Dehydrogenase CK-MB (CK-2) C-Reactive Protein NT-Pro-B Natriuret Pep Total Protein Albumin Urine WBC (Auto) Chest x-ray: pending Allied health notes reviewed: nursing
[2019-12-21] MEDS ORDERED: MIDAZOLAM 2 MG/2 ML INJ IV ONE (14:57)
[2019-12-21] MEDS ORDERED: MIDAZOLAM 5 MG/5 ML INJ MDV IV NR (15:00)
[2019-12-21] MEDS ORDERED: MIDAZOLAM 5 MG/5 ML INJ MDV IV ONE (15:00)
--- NOTE | 2019-12-21 16:15 | Ultrasound Report ---
ULTRASOUND CHEST HISTORY: Pleural effusion TECHNIQUE: Grayscale ultrasound FINDINGS: Initial scan of the chest demonstrates a very small right pleural effusion measuring 41 cc. This examination was scheduled for an ultrasound-guided thoracentesis. The patient was on a ventilat or and unstable in the ultrasound room. A decision was made to not perform the thoracentesis. IMPRESSION: Trace to small right pleural effusion as described. Signer Name: Nicholas St Jr, MD Signed: 12/21/2019 4:11 PM Workstation Name: [id number]
[2019-12-21] MEDS: HEPARIN/ 0.45% NACL DRIP 25,000 UNIT/500 ML BAG IV SCH (18:06)
--- NOTE | 2019-12-21 20:03 | Progress Note ---
Assessment and Plan Assessment and plan: Acute LLL PE -Acute RLE DVT -Persistent fevers; secondary to sepsis and acute PE/DVT -Severe sepsis; secondary to bilateral pneumonia, persistent fevers -Acute hypoxemic respiratory failure, on vent unable to wean -Bilateral pneumonia, community acquired, -Aspiration Pneumonia -Sustained SVT, on amiodarone -Acute on chronic systolic congestive heart failure -History of cerebrovascular accident. -Tobacco use disorder -Alcohol abuse with DT -Acute chronic obstructive pulmonary disease exacerbation. -Hypertension and hypertensive urgency at presentation. -History of arthritis. -Paroxysmal atrial fibrillation -Leukocytosis with possible sepsis. -Lactic acidosis. -Bleeding from ET tube -Oropharyngeal dysphagia -S/P Knee surgery -History of peptic Ulcer Surgery -DVT prophylaxis COVID-19 test; 11/24/2019; negative 11/26/2019; negative Plan Continue ventilatory support Wean as tolerated as per critical care Completed abx, ID following Aspiration precautions Continue amiodarone and metoprolol for suppression of paroxysmal atrial fibrillation. Anticoagulation currently with intravenous heparin. Plan for thoracentesis May need trach and PEG DVT/GI prophy Heparin/Protonix Plan of care reviewed with the patient's nurse Closely monitor the patient and adjust management as needed The high probability of a clinically significant, sudden or life threatening deterioration of the [Respiratory, cardiovascular & neurological] system(s) required my full and direct attention, intervention and personal management. The aggregate critical care time was [33] minutes without overlap. Time includes spent on [x] Data Review and interpretation [x] Patient assessment and monitoring of vital signs [x] Documentation [x] Medication orders and management Brief History Patient is a 64-year-old male with known history of hypertension, COPD, history of coronary artery disease, CHF with ejection fraction of 20 to 25% in August 2018 presenting to the emergency room via EMS complaining of shortness of breath. Patient was found to be hypoxic and in respiratory distress. Patient was placed on CPAP in route to the hospital. Oxygen saturation was said to be 88%. Started on Solu-Medrol, Lasix and magnesium in ED, patient was also found to be lethargic with an oxygen saturation of about 91% on CPAP. He was subsequently intubated. Work-up in the emergency room including chest x-ray reveals bilateral pneumonia. He had an elevated white count of 14 and also had an elevated BNP. Patient to be admitted to the ICU and placed on empiric IV antibiotics for pneumonia. He will also be tested positive for COVID-19 and placed on isolation precautions. Rmains intubated on ventilatory support, sputum cultures positive for Pseudomonas, ID changed antibiotics to cefepime and Vanco. 11/25: Leukocytosis improving. Continue current management anticipate extubation possible today. 11/26. Still intubated. Failed SBT yesterday. Repeat COVID-19 test is negative. 11/27. CT head ordered for possible neuro status change is negative. More responsive as the day progressed as per RN. Chest xray today shows interval improvement. He is still on antibiotics - will complete regimen today. 11/28: Considering difficult extubation and severe cardiomyopathy, will obtain cardiology consult. Aspiration precautions, tube feeds held, continue antibiotics. 11/29: Still with intermittent fever but improving imaging, continue diuresis. 11/30; Extremely agitated when placed on PSV- SVT, hypertension. Patiet acknowledged that he drinks. IV Ativan given, CIWA protocol initiated. 12 lead ordered showed SVT, one dose of amiodarone ordered. continue to follow up cardiology recommendation 12/01: Patient remains on mechanical ventilation, getting SBT trial. Remains in SVT, started on amiodarone drip by cardiology. 12/02; patient is on mechanical ventilation and on spontaneous breathing trial. Cardiology started the patient on PO amiodarone. Patient is on cefepime. 12/03: patient is on mechanical ventilation. Cardiology started the patient on PO amiodarone for SVT. Patient is on cefepime, no fever overnight. 12/04: Patient is sedated and on mechanical ventilation. Patient had fever yesterday afternoon 102.3, ID changed his cefepime to meropenem. Heart rate is controlled, cardiology is following. Patient has paroxysmal atrial fibrillation and on amiodarone and metoprolol, subcu heparin for anticoagulation and will need oral anticoagulation once stable. 12/05: Sputum cultures positive for Pseudomonas, ID following 12/06; patient is febrile T-max 24 hours 102 F ,ID change antibiotics to cefepime and Vancomycin 12/07: resumed care. Na 149 today, start on 1/2 NS. cont current care 12/08: remains in a stable sinus rhythm and stable blood pressure, continue supportive care. wean off vent as tolerated. persistent fever - ordered CTA chest 12/09: noted bloody discharges from ET tube last night. CTA and LE venous doppler positive for acute PE and DVT. resume heparin drip, consult vascular for possible EKOS/ IVC filter. monitor h/h. cont SBT trial, wean off vent as tolerated. called but no answer 12/10: cont heparin drip for acute PE and DVT, follow vascular recommendation. monitor h/h, wean off vent as tolerated 12/11: o/n had bleeding from ET tube, cont to monitor h/h. vascular recommending medical Mx. called ; Nicolle Araiza [phone]. 12/12: H&H remained stable, patient on heparin drip. Discussed with yesterday. Discussed with critical care attending. Patient not tolerating SBT trial. Continue to wean off from vent as tolerated, follow clinically. Tolerating tube feeding 12/13: Continue heparin drip, wean off from vent as tolerated. Discussed with pulmonary attending if no improvement by the end of 3 weeks of intubation patient may need trach and PEG. Continue to provide supportive care, follow CBC and BMP. 12/14: Stop cefepime today, wean off from vent as tolerated. cont Heparin in fusion, while monitoring for bleeding 12/15: Patient is not tolerating SBT trial, becoming apnic on CPAP. May need to place on trach and PEG. Continue heparin drip, monitor off antibiotics 12/16. Still maintained on vent. May need PEG and trach as her has been failed SBTs 12/17. Had low UO overnight. Started on tamsulosin. May need PEG and trach - defer to pulm. 12/18-. Plan for US thoracentesis to help with weaning. Remains on heparin drip for VTE. 12/20. Discussed with spouse today. He will get thoracentesis today. INR/PTT ordered. Heparin drip held. History Interval history: No change in medical condition. Still remains intubated. COVID-19 test negative. Plan for thoracentesis today. May need trach and PEG eventually if still not tolerating SBT. Hospitalist Physical - Constitutional Vitals: Temp Pulse Resp BP Pulse Ox 99.4 F 101 H 17 143/101 89 12/21/19 16:00 12/21/19 19:01 12/21/19 19:01 12/21/19 19:01 12/21/19 19:01 General appearance: Present: well-nourished, other (Intubated. OG tube in place) - EENT Eyes: Present: PERRL - Respiratory Respiratory: bilateral: diminished - Cardiovascular Heart Sounds: Present: S1 & S2 - Abdominal General gastrointestinal: soft, non-tender, non-distended, normal bowel sounds - Neurologic Neurologic: other (Sedated) HEART Score - HEART Score Troponin: Troponin T < 0.010 ng/mL (0.00-0.029) 11/24/19 02:53 Results - Labs CBC & Chem 7: 12/21/19 05:31 12/21/19 05:31 Labs: Laboratory Last Values WBC 12.7 K/mm3 (4.5-11.0) H 12/21/19 05:31 RBC 3.09 M/mm3 (3.65-5.03) L 12/21/19 05:31 Hgb 8.9 gm/dl (11.8-15.2) L 12/21/19 05:31 Hct 27.4 % (35.5-45.6) L 12/21/19 05:31 MCV 88 fl (84-94) 12/21/19 05:31 MCH 29 pg (28-32) 12/21/19 05:31 MCHC 33 % (32-34) 12/21/19 05:31 RDW 15.8 % (13.2-15.2) H 12/21/19 05:31 Plt Count 313 K/mm3 (140-440) 12/21/19 05:31 Lymph % (Auto) 12.1 % (13.4-35.0) L 12/21/19 05:31 [place] % (Auto) 7.8 % (0.0-7.3) H 12/21/19 05:31 Eos % (Auto) 2.3 % (0.0-4.3) 12/21/19 05:31 Baso % (Auto) 0.7 % (0.0-1.8) 12/21/19 05:31 Lymph # (Auto) 1.5 K/mm3 (1.2-5.4) 12/21/19 05:31 [place] # (Auto) 1.0 K/mm3 (0.0-0.8) H 12/21/19 05:31 Eos # (Auto) 0.3 K/mm3 (0.0-0.4) 12/21/19 05:31 Baso # (Auto) 0.1 K/mm3 (0.0-0.1) 12/21/19 05:31 Add Manual Diff Complete 12/19/19 11:32 Total Counted 100 12/19/19 11:32 Seg Neutrophils % 77.1 % (40.0-70.0) H 12/21/19 05:31 Seg Neuts % (Manual) 82.0 % (40.0-70.0) H 12/19/19 11:32 Band Neutrophils % 0 % 12/19/19 11:32 Lymphocytes % (Manual) 10.0 % (13.4-35.0) L 12/19/19 11:32 Reactive Lymphs % (Man) 0 % 12/19/19 11:32 Monocytes % (Manual) 6.0 % (0.0-7.3) 12/19/19 11:32 Eosinophils % (Manual) 2.0 % (0.0-4.3) 12/19/19 11:32 Basophils % (Manual) 0 % (0.0-1.8) 12/19/19 11:32 Metamyelocytes % 0 % 12/19/19 11:32 Myelocytes % 0 % 12/19/19 11:32 Promyelocytes % 0 % 12/19/19 11:32 Blast Cells % 0 % 12/19/19 11:32 Nucleated RBC % 1.0 % (0.0-0.9) H 12/19/19 11:32 Seg Neutrophils # 9.8 K/mm3 (1.8-7.7) H 12/21/19 05:31 Seg Neutrophils # Man 12.0 K/mm3 (1.8-7.7) H 12/19/19 11:32 Band Neutrophils # 0.0 K/mm3 12/19/19 11:32 Lymphocytes # (Manual) 1.5 K/mm3 (1.2-5.4) 12/19/19 11:32 Abs React Lymphs (Man) 0.0 K/mm3 12/19/19 11:32 Monocytes # (Manual) 0.9 K/mm3 (0.0-0.8) H 12/19/19 11:32 Eosinophils # (Manual) 0.3 K/mm3 (0.0-0.4) 12/19/19 11:32 Basophils # (Manual) 0.0 K/mm3 (0.0-0.1) 12/19/19 11:32 Metamyelocytes # 0.0 K/mm3 12/19/19 11:32 Myelocytes # 0.0 K/mm3 12/19/19 11:32 Promyelocytes # 0.0 K/mm3 12/19/19 11:32 Blast Cells # 0.0 K/mm3 12/19/19 11:32 WBC Morphology Not Reportable 12/19/19 11:32 Hypersegmented Neuts Not Reportable 12/19/19 11:32 Hyposegmented Neuts Not Reportable 12/19/19 11:32 Hypogranular Neuts Not Reportable 12/19/19 11:32 Smudge Cells Not Reportable 12/19/19 11:32 Toxic Granulation Not Reportable 12/19/19 11:32 Toxic Vacuolation Not Reportable 12/19/19 11:32 Dohle Bodies Not Reportable 12/19/19 11:32 Pelger-Huet Anomaly Not Reportable 12/19/19 11:32 Hector Rods Not Reportable 12/19/19 11:32 Platelet Estimate Consistent w auto 12/19/19 11:32 Clumped Platelets Not Reportable 12/19/19 11:32 Plt Clumps, EDTA Not Reportable 12/19/19 11:32 Large Platelets Not Reportable 12/19/19 11:32 Giant Platelets Not Reportable 12/19/19 11:32 Platelet Satelliting Not Reportable 12/19/19 11:32 Plt Morphology Comment Not Reportable 12/19/19 11:32 RBC Morphology Not Reportable 12/19/19 11:32 Dimorphic RBCs Not Reportable 12/19/19 11:32 Polychromasia Not Reportable 12/19/19 11:32 Hypochromasia Few 12/19/19 11:32 Poikilocytosis Not Reportable 12/19/19 11:32 Anisocytosis 1+ 12/19/19 11:32 Microcytosis Few 12/19/19 11:32 Macrocytosis Few 12/19/19 11:32 Spherocytes Not Reportable 12/19/19 11:32 Pappenheimer Bodies Not Reportable 12/19/19 11:32 Sickle Cells Not Reportable 12/19/19 11:32 Target Cells Not Reportable 12/19/19 11:32 Tear Drop Cells Not Reportable 12/19/19 11:32 Ovalocytes Not Reportable 12/19/19 11:32 Helmet Cells Not Reportable 12/19/19 11:32 [place] Bodies Not Reportable 12/19/19 11:32 [place] Rings Not Reportable 12/19/19 11:32 Oc Cells Not Reportable 12/19/19 11:32 Bite Cells Not Reportable 12/19/19 11:32 Crenated Cell Not Reportable 12/19/19 11:32 Elliptocytes Not Reportable 12/19/19 11:32 Acanthocytes (Spur) Not Reportable 12/19/19 11:32 Rouleaux Not Reportable 12/19/19 11:32 Hemoglobin C Crystals Not Reportable 12/19/19 11:32 Schistocytes Not Reportable 12/19/19 11:32 Malaria parasites Not Reportable 12/19/19 11:32 Clifford Bodies Not Reportable 12/19/19 11:32 Hem Pathologist Commnt No 12/19/19 11:32 PT 13.8 Sec. (12.2-14.9) 12/21/19 10:13 INR 1.05 (0.87-1.13) 12/21/19 10:13 APTT 23.9 Sec. (24.2-36.6) L 12/21/19 10:13 Heparin Anti-Xa Level < 0.10 U.I./ml (0.3-0.7) L 12/21/19 10:13 POC ABG pCO2 45.1 mmHg (32.0-48.0) 12/02/19 12:58 POC ABG pO2 78.1 mmHg (83-108) L 12/02/19 12:58 POC ABG HCO3 29.9 12/02/19 12:58 POC ABG Base Excess 5.0 12/02/19 12:58 ABG pH 7.451 pH Units (7.350-7.450) H 12/19/19 09:20 ABG pCO2 48.7 mm Hg 12/19/19 09:20 ABG Oxyhemoglobin 94.7 (94-98) 09/09/20 12:58 ABG pO2 62.6 mm Hg (80.0-90.0) L 12/19/19 09:20 ABG HCO3 33.2 mmol/L (20.0-26.0) H 12/19/19 09:20 ABG O2 Saturation 93.8 % (95.0-99.0) L 12/19/19 09:20 ABG O2 Content 10.8 (0.0-44) 12/19/19 09:20 ABG Base Excess 8.3 mmol/L (-2.0-3.0) H 12/19/19 09:20 ABG Hemoglobin 8.3 gm/dl (14.0-18.0) L 12/19/19 09:20 ABG Carboxyhemoglobin 1.6 % (0.0-5.0) 12/19/19 09:20 ABG Methemoglobin 0.4 % (0.0-1.5) 12/19/19 09:20 Carboxyhemoglobin 1.3 (0.5-1.5) 12/02/19 12:58 Oxyhemoglobin 91.9 % (95.0-99.0) L 12/19/19 09:20 FiO2 50 % 12/19/19 09:20 Sodium 140 mmol/L (137-145) 12/21/19 05:31 Potassium 4.9 mmol/L (3.6-5.0) 12/21/19 05:31 Chloride 96.9 mmol/L (98-107) L 12/21/19 05:31 Carbon Dioxide 37 mmol/L (22-30) H 12/21/19 05:31 Anion Gap 11 mmol/L 12/21/19 05:31 BUN 27 mg/dL (9-20) H 12/21/19 05:31 Creatinine 0.7 mg/dL (0.8-1.3) L 12/21/19 05:31 Estimated GFR > 60 ml/min 12/21/19 05:31 BUN/Creatinine Ratio 39 % 12/21/19 05:31 Glucose 140 mg/dL (75-100) H 12/21/19 05:31 POC Glucose 167 (70-105) H 12/21/19 17:16 Lactic Acid 2.50 mmol/L (0.7-2.0) H* 11/24/19 10:37 Phosphorus 2.60 mg/dL (2.5-4.5) 12/06/19 05:24 Magnesium 2.60 mg/dL (1.7-2.3) H 12/07/19 12:41 Calcium 9.6 mg/dL (8.4-10.2) 12/21/19 05:31 Ferritin 84.4 ng/mL (30.0-300.0) 11/24/19 04:53 Direct Bilirubin < 0.2 mg/dL (0-0.2) 12/08/19 03:55 Indirect Bilirubin 0.2 mg/dL 12/08/19 03:55 Total Bilirubin 0.30 mg/dL (0.1-1.2) 12/19/19 11:32 Total Creatine Kinase 141 units/L (55-170) 11/24/19 02:53 CK-MB (CK-2) 4.3 ng/mL (0.0-4.0) H 11/24/19 02:53 AST 21 units/L (5-40) 12/19/19 11:32 ALT 40 units/L (7-56) 12/19/19 11:32 CK-MB (CK-2) Rel Index 3.0 (0-4) 11/24/19 02:53 Alkaline Phosphatase 68 units/L (35-129) 12/19/19 11:32 Troponin T < 0.010 ng/mL (0.00-0.029) 11/24/19 02:53 C-Reactive Protein 8.50 mg/dL (0.00-1.30) H 12/01/19 12:16 NT-Pro-B Natriuret Pep 286.1 pg/mL (0-900) 11/29/19 15:37 Lactate Dehydrogenase 228 units/L (91-180) H 12/19/19 04:45 Total Protein 6.2 g/dL (6.3-8.2) L 12/19/19 11:32 Albumin 2.4 g/dL (3.9-5) L 12/19/19 11:32 Albumin/Globulin Ratio 0.6 % 12/19/19 11:32 Procalcitonin 0.67 ng/mL (<0.15) 12/07/19 12:41 Urine Color Cecy (Yellow) 12/03/19 06:03 Urine Turbidity Clear (Clear) 12/03/19 06:03 Urine pH 5.0 (5.0-7.0) 12/03/19 06:03 Ur Specific [place] 1.030 (1.003-1.030) 12/03/19 06:03 Urine Protein <15 mg/dl mg/dL (Negative) 12/03/19 06:03 Urine Glucose (UA) Neg mg/dL (Negative) 12/03/19 06:03 Urine Ketones Neg mg/dL (Negative) 12/03/19 06:03 Urine Blood Neg (Negative) 12/03/19 06:03 Urine Nitrite Neg (Negative) 12/03/19 06:03 Urine Bilirubin Neg (Negative) 12/03/19 06:03 Urine Urobilinogen 4.0 mg/dL (<2.0) 12/03/19 06:03 Ur Leukocyte Esterase Neg (Negative) 12/03/19 06:03 Urine WBC (Auto) 8.0 /HPF (0.0-6.0) H 12/03/19 06:03 Urine RBC (Auto) 2.0 /HPF (0.0-6.0) 12/03/19 06:03 Urine Bacteria (Auto) 1+ /HPF (Negative) 12/03/19 06:03 Urine Mucus 1+ /HPF 12/03/19 06:03 Vancomycin Trough 14.2 ug/mL (5.0-20.0) 12/13/19 15:01 Coronavirus (PCR) Negative (Negative) 11/26/19 08:26 - Diagnostic Impressions Diagnostic Impressions: Echocardiogram 11/29/19 07:37 Transthoracic Echocardiogram Indication: CHF BP: 116/72 HR: 33 Conclusions *The study is technically limited due to poor acoustic windows. *Global left ventricular systolic function is normal. *The estimated ejection fraction is 50-55%. *Mild concentric left ventricular hypertrophy is observed. *There is trace of mitral regurgitation. *There is mild tricuspid regurgitation. Findings Procedure Info: The study quality is poor. The study is technically limited due to poor acoustic windows. The study is technically limited due to patient body habitus. Left Ventricle: The left ventricular chamber size is normal. Mild concentric left ventricular hypertrophy is observed. Global left ventricular systolic function is normal. The estimated ejection fraction is 50-55%. Left Atrium: The left atrial chamber size is normal. Right Ventricle: The right ventricular cavity size is normal. Right Atrium: The right atrial cavity size is normal. Aortic Valve: The aortic valve leaflets are moderately thickened. There is trace of aortic regurgitation. There is no evidence of aortic stenosis. Mitral Valve: The mitral valve leaflets are mildly thickened. There is trace of mitral regurgitation. There is no evidence of mitral stenosis. Tricuspid Valve: There is mild tricuspid regurgitation. No pulmonary hypertension is noted. Pulmonic Valve: There is trace pulmonic regurgitation. Pericardium: There is no pericardial effusion. Aorta: There is no dilatation of the aortic root. Venous: The inferior vena cava appears normal in size. Contrast: Definity was used to optimize study. Intravenous contrast was used to enhance endocardial border definition. Measurements Chambers 2D Name Value Normal Range Ao root diameter (2D) 3.4 cm (2 - 3.7) Aortic Valve Name Value Normal Range AV Vmax 0.98 m/sec - AV VTI 16.76 cm - AV peak gradient 3.83 mmHg - AV mean gradient 2.57 mmHg - LVOT diameter 3.11 cm - LVOT Vmax 0.68 m/sec - LVOT VTI 11.52 cm - LVOT peak gradient 1.84 mmHg - LVOT mean gradient 1.27 mmHg - SV LVOT 87.31 ml - MALOU (continuity Vmax) 5.24 cm2 - MALOU (continuity VTI) 5.21 cm2 - Tricuspid Valve Name Value Normal Range IVC diameter 2.24 cm (1.2 - 2.3) Hoffman/IV: Voiding Method Condom Catheter IV Catheter Type [Right Upper INT / Saline Lock arm] IV Catheter Type [Left Upper Mid-line arm] IV Catheter Type [Left Forearm Peripheral IV ] IV Catheter Type [Left Hand] INT / Saline Lock IV Catheter Type [Left Wrist] INT / Saline Lock IV Catheter Type [Right INT / Saline Lock Antecubital] Active Medications - Current Medications Current Medications: Generic Name Dose Route Start Last Admin Trade Name Freq PRN Reason Stop Dose Admin Acetaminophen 650 mg 11/25/19 17:27 12/16/19 00:29 Tylenol FEEDTUBE 650 mg Q6H PRN Administration Pain, Mild (1-3) Amiodarone HCl 200 mg 12/04/19 14:00 09/28/20 09:44 Cordarone PO 200 mg BID CAR Administration Lipase/Protease/Amylase 1 each 12/08/19 12:[address] 10,500 Unit FEEDTUBE PRN PRN For Clogged Feeding Tube Docusate Sodium 100 mg 12/02/19 22:00 12/21/19 09:44 Colace FEEDTUBE 100 mg BID CAR Administration Famotidine 20 mg 11/25/19 10:00 12/21/19 09:45 Pepcid PO 20 mg BID CAR Administration Fentanyl 50 mcg 11/24/19 09:55 Sublimaze IV Q10MIN PRN ANALGESIA Haloperidol Lactate 5 mg 12/01/19 10:23 Haldol IV Q1H PRN Unrespon. to mult. doses BZD's Hydrophilic Ointment 1 applic 11/24/19 02:23 Vaseline Lip Therapy TP Q2HR PRN Dry Lips Fentanyl Citrate 2,000 mcg in 100 mls @ 5.67 mls/hr 11/24/19 10:00 12/21/19 18:59 Fentanyl Drip Premix IV 4 mcg/kg/hr TITR CAR 22.68 mls/hr Administration Protocol 1 MCG/KG/HR Propofol 1,000 mg in 100 mls @ 3.402 mls/hr 11/28/19 17:25 Diprivan 10 Mg/Ml IV TITR CAR Protocol 5 MCG/KG/MIN Heparin Sodium/Sodium Chloride 25,000 unit in 500 mls @ 30 mls/hr 12/10/19 19:00 12/21/19 18:06 Heparin/ 0.45% Nacl-25,000 Unit/500 Ml IV 1,500 units/hr TITR CAR 30 mls/hr Administration Protocol 1,500 UNITS/HR Insulin Human Lispro 0 unit 12/05/19 19:00 12/21/19 18:04 Humalog SUB-Q 1 unit Q6H CRA Administration Protocol Lorazepam 2 mg 12/01/19 10:23 12/17/19 21:43 Ativan IV 2 mg Q1H PRN Administration CIWA-Ar 8-15 Lorazepam 4 mg 12/01/19 10:23 12/20/19 15:59 Ativan IV 4 mg Q1H PRN Administration CIWA-Ar 16-25 Lorazepam 4 mg 12/01/19 10:23 12/18/19 11:14 Ativan IV 4 mg Q15MIN PRN Administration CIWA-Ar >25 Metoprolol Tartrate 50 mg 12/07/19 14:00 12/21/19 13:12 Metoprolol PO 50 mg Q8HR CAR Administration Midazolam HCl 4 mg 12/21/19 15:00 12/21/19 18:04 Versed IV 12/21/19 23:59 4 mg ONCE NR Administration Multi-Ingred Cream/Lotion/Oil/Oint 1 applic 11/24/19 02:23 Artificial Tears Ophth Oint OU Q4HR PRN Dry Eye(s) Ondansetron HCl 4 mg 11/24/19 05:31 12/14/19 20:00 Zofran IV 4 mg Q8H PRN Administration Nausea And Vomiting Polyethylene Glycol 17 gm 12/04/19 22:00 12/20/19 21:40 Miralax 3350 PO Not Given QHS CAR Quetiapine Fumarate 50 mg 12/07/19 13:00 12/21/19 09:45 Seroquel PO 50 mg DAILY CAR Administration Quetiapine Fumarate 200 mg 12/15/19 22:00 12/20/19 21:38 Seroquel PO 200 mg QHS CAR Administration Simple Syrup 15 ml 12/08/19 12:07 Simple Syrup FEEDTUBE PRN PRN Hypoglycemia Simple Syrup 30 ml 12/08/19 12:07 Simple Syrup FEEDTUBE PRN PRN Hypoglycemia Sodium Bicarbonate 325 mg 12/08/19 12:07 Sodium Bicarbonate FEEDTUBE PRN PRN For Clogged Feeding Tube Sodium Chloride 10 ml 11/24/19 10:00 12/21/19 09:46 Sodium Chloride Flush Syringe 10 Ml IV 10 ml BID CAR Administration Sodium Chloride 10 ml 11/24/19 05:31 Sodium Chloride Flush Syringe 10 Ml IV PRN PRN LINE FLUSH Tamsulosin HCl 0.8 mg 12/20/19 22:00 12/20/19 21:39 Flomax PO 0.8 mg QHS CAR Administration Nutrition/Malnutrition Assess - Dietary Evaluation Nutrition/Malnutrition Findings: Nutrition Notes Start: 11/24/19 12:22 Freq: Status: Active Protocol: Document 12/18/19 13:21 [email or web address] (Rec: 12/18/19 13:50 [email or web address]) Co-Sign 12/18/19 13:21 LP Nutrition Notes Initial or Follow up Reassessment Current Diagnosis Coronary Artery Disease,Heart Failure,Respiratory Failure, Stroke,Hyperlipidemia Current Diet TF Vital HP 65ml/hr Labs/Tests Reviewed Pertinent Medications Humalog Height 6 ft 2 in Weight 119.9 kg [place] Body Weight (kg) 86.36 BMI 33.9 Weight change and time frame Wt change noted Weight Status Obese Subjective/Other Information F/U for stable TF. TF running at 65ml/hr. Unable to reach RN x2. Percent of energy/protein needs met: 100%/65% Burn Absent Trauma Absent Current % PO Negligible Minimum of two criteria No physical signs of malnutrition Fluid Accumulation Mild (non-severe) #1 Nutrition Diagnosis Inadequate oral intake Diagnosis Progress(for reassessment Continues documentation) Is patient on ventilator? Yes Is Patient Ambulatory and/or Out of Bed No REE-([facility]-confined to bed) 2481.108 Kcal/Kg value to use for calculation 13 Approximate Energy Requirements Using 1559 kcal/Kg Calculation Used for Recommendations Kcal/kg Additional Notes Protein needs 173g (greater than 2g/kg IBW) Fluid needs 1.5-1.9L Nutrition Intervention Change Diet Order: Continue TF Nutrition Support: Vital HP at 65ml/hr Flush 100ml q4h Hypernatermia 250ml q4h Kcal 1,560 Protein (gm) 114 Fluid (mL) 1,304 Goal #1 TF meets at least 80% of energy and protein needs. Goal #2 TF tolerance Anticipated Discharge Needs: unable to determine at this time Follow-Up By: 12/22/19 Additional Comments F/u for stable TF
[2019-12-21] MEDS: QUEtiapine 100 MG TAB PO SCH (21:09)
[2019-12-21] MEDS: TAMSULOSIN 0.4 MG CAP PO SCH (21:09)
[2019-12-21] MEDS: POLYETHYLENE GLYCOL 3350 17 GM POWDER PO SCH (21:09)
[2019-12-22] MEDS: INSULIN LISPRO 100 UNIT/ML VIAL 3 mL SUB-Q SCH ×4 (01:38→19:00)
[2019-12-22 05:25] LABS: Hematocrit 28.1 % (35.5-45.6); Hemoglobin 8.9 gm/dl (11.8-15.2); Mean Corpuscular HGB Conc 32 % (32-34); Mean Corpuscular Volume 88 fl (84-94); Platelet Count 302 K/mm3 (140-440); Red Cell Distribution Width 15.9 % (13.2-15.2)
[2019-12-22 05:50] LABS: Blood Urea Nitrogen 25 mg/dL (9-20); Calcium 9.3 mg/dL (8.4-10.2); Hemolysis Index 0
[2019-12-22 05:58] LABS: BUN/Creatinine Ratio 36
[2019-12-22] MEDS: METOPROLOL TARTRATE 50 MG TAB PO SCH ×3 (06:03→21:53)
--- NOTE | 2019-12-22 08:11 | Progress Note ---
Assessment and Plan Acute hypoxemic respiratory failure Bilateral pneumonia, community acquired. Acute LLL branch P.E. Acute DVT Person under investigation for COVID-19 infection. Acute congestive heart failure exacerbation. History of cerebrovascular accident. Acute chronic obstructive pulmonary disease exacerbation. Hypertension and hypertensive urgency at presentation. History of arthritis. Leukocytosis. Lactic acidosis. Oropharyngeal dysphagia - thoracentesis cancelled, no significant effusion - get CXR +/- bronch - resume IV Heparin for VTE - continue Flomax dose at 0.8 mg qhs - Surgery evaluation ongoing for tracheostomy (discussed indications with his ) - follow BAL studies - continue daily SAT's and SBT assessment as tolerated - continue care as below otherwise; - continue low dose seroquel - COVID isolation per facility protocol - free water for hypernatremia - continue diuresis while following electrolytes / I's & O's - continue to wean oxygen for O2 sat's > 92% - continue bronchodilators with pulmonary hygiene per RT - VAP bundle addressed (Aspiration precautions, HOB >40) - continue to wean per pulmonary driven protocols - sedation target is RASS 0 to -1 - continue prn analgesia per CPOT score - follow clinically re: fever curves / trend WBC - Avoid delirium (no benzodiazepines if they can be avoided) - Maintain sleep-wake cycle - enteral nutrition at goal rate as tolerated - continue accucheck's with glycemic control per SSI for target blood glucose goal of 140-180 mg/dL while critically ill; Avoid hypoglycemia - for VTE he is on IV Heparin - continue stress ulcer prophylaxis with Famotidine - continue mobility protocols for pressure ulcer prophylaxis - continue fall precautions - continue wound care management per RN / WCT - Supportive transfusions to keep HgB>7g/dL - CXR's and ABG's prn - Continue to monitor neurologic function - Continue chronic home medications - Continue all supportive care ........ re-evaluate in am & prn CONDITION: CRITICAL PROGNOSIS: GUARDED CODE STATUS: FULL CODE The high probability of a clinically significant, sudden or life threatening deterioration of the [Respiratory, cardiovascular & neurological] system(s) required my full and direct attention, intervention and personal management. The aggregate critical care time was [35] minutes without overlap. Time includes spent on [x] Data Review and interpretation [x] Patient assessment and monitoring of vital signs [x] Documentation [x] Medication orders and management Subjective Date of service: 12/22/19 Principal diagnosis: Ac hypoxemic resp failure; Pneumonia; PUI COVID-19; CHF; COPD; HTN Interval history: Patient is seen today for: Acute hypoxemic respiratory failure; Adan. Pneumonia (CAP); PUI COVID-19 infection; AE-CHF; AE-COPD; H/O CVA; HTN Seen and examined at bedside; 24 hour events reviewed; nursing and respiratory care staff consulted; no adverse overnight events reported to me; resting peacefully in bed; remains on MVS; still not weaning well; AMS is persistent; no emesis or overt aspiration Objective Vital Signs - 12hr 12/21/19 12/21/19 12/21/19 20:31 21:01 21:09 Temperature Pulse Rate 92 H 86 98 H Pulse Rate [ From Monitor] Respiratory 12 15 Rate Blood Pressure 139/92 132/79 132/79 O2 Sat by Pulse 93 94 Oximetry 12/21/19 12/21/19 12/21/19 21:31 22:01 22:31 Temperature Pulse Rate 102 H 79 84 Pulse Rate [ From Monitor] Respiratory 18 12 11 L Rate Blood Pressure 139/92 115/67 115/67 O2 Sat by Pulse 91 93 95 Oximetry 12/21/19 12/21/19 12/21/19 22:40 23:00 23:27 Temperature 98.8 F Pulse Rate 93 H 90 Pulse Rate [ From Monitor] Respiratory 15 15 Rate Blood Pressure 115/67 81/48 O2 Sat by Pulse 90 95 Oximetry 12/21/19 12/22/19 12/22/19 23:31 00:00 00:31 Temperature Pulse Rate 92 H 91 H 88 Pulse Rate [ 91 H From Monitor] Respiratory 15 14 14 Rate Blood Pressure 122/81 114/74 114/74 O2 Sat by Pulse 93 91 92 Oximetry 12/22/19 12/22/19 12/22/19 01:00 01:31 02:00 Temperature Pulse Rate 96 H 94 H 98 H Pulse Rate [ From Monitor] Respiratory 16 15 16 Rate Blood Pressure 118/83 114/74 103/79 O2 Sat by Pulse 92 93 92 Oximetry 12/22/19 12/22/19 12/22/19 02:31 03:01 03:26 Temperature 98.9 F Pulse Rate 92 H 95 H Pulse Rate [ From Monitor] Respiratory 13 15 Rate Blood Pressure 103/79 104/80 O2 Sat by Pulse 91 89 Oximetry 12/22/19 12/22/19 12/22/19 03:31 04:00 04:01 Temperature Pulse Rate 105 H 109 H 105 H Pulse Rate [ 109 H From Monitor] Respiratory 21 14 19 Rate Blood Pressure 104/80 141/115 O2 Sat by Pulse 91 92 91 Oximetry 12/22/19 12/22/19 12/22/19 04:31 04:35 05:00 Temperature Pulse Rate 109 H 99 H 89 Pulse Rate [ From Monitor] Respiratory 19 13 Rate Blood Pressure 141/115 141/115 137/66 O2 Sat by Pulse 92 92 93 Oximetry 12/22/19 12/22/19 12/22/19 05:30 06:00 06:03 Temperature Pulse Rate 86 94 H 91 H Pulse Rate [ From Monitor] Respiratory 11 L 14 Rate Blood Pressure 137/66 137/66 115/69 O2 Sat by Pulse 96 97 Oximetry 12/22/19 12/22/19 12/22/19 06:30 07:00 07:30 Temperature Pulse Rate 94 H 93 H 92 H Pulse Rate [ From Monitor] Respiratory 14 17 17 Rate Blood Pressure 115/69 110/67 115/69 O2 Sat by Pulse 97 93 90 Oximetry 12/22/19 07:46 Temperature Pulse Rate 92 H Pulse Rate [ From Monitor] Respiratory Rate Blood Pressure 115/69 O2 Sat by Pulse 94 Oximetry Constitutional: no acute distress, agitated, other (elderly and obese male, normocephalic with mildly increased respiratory effort at rest on MVS) Eyes: non-icteric ENT: oropharynx moist, other (ETT 24 cm JASON) Neck: supple, no JVD Effort: mildly labored Ascultation: Bilateral: diminished breath sounds (bases R>L), rhonchi Percussion: Bilateral: not dull Cardiovascular: irregular rhythm Gastrointestinal: normoactive bowel sounds, soft, non-tender, non-distended Integumentary: normal Extremities: no cyanosis, no edema, pulses normal, no ischemia or petechiae Neurologic: non-focal exam (moves all extremities with extreme agitation), pupils equal and round, motor strength normal and, other (sedated lightly) Psychiatric: other (unable to assess re: AMS) CBC and BMP: 12/23/19 03:51 12/23/19 03:51 ABG, PT/INR, D-dimer: ABG ABG pH 7.418 (7.320-7.450) 12/22/19 03:22 POC ABG pCO2 52.9 mmHg (32.0-48.0) H 12/22/19 03:22 ABG pCO2 48.7 mm Hg 12/19/19 09:20 POC ABG pO2 52.3 mmHg (83-108) L 12/22/19 03:22 ABG pO2 62.6 mm Hg (80.0-90.0) L 12/19/19 09:20 POC ABG HCO3 33.4 12/22/19 03:22 ABG O2 Saturation 93.8 % (95.0-99.0) L 12/19/19 09:20 PT/INR, D-dimer PT 13.8 Sec. (12.2-14.9) 12/21/19 10:13 INR 1.05 (0.87-1.13) 12/21/19 10:13 Abnormal lab findings: Abnormal Labs 11/24/19 11/24/19 11/24/19 02:53 02:53 03:45 WBC 14.3 H RBC Hgb Hct MCHC RDW 17.2 H Lymph % (Auto) [place] % (Auto) [place] # Eos # [place] # (Auto) Eos # (Auto) Seg Neutrophils % Seg Neuts % (Manual) Baso # (Auto) Lymphocytes % (Manual) Monocytes % (Manual) Eosinophils % (Manual) Basophils % (Manual) Seg Neutrophils # Seg Neutrophils # Man 8.3 H Lymphocytes # (Manual) Monocytes # (Manual) 0.9 H Eosinophils # (Manual) Nucleated RBC % Basophils # (Manual) APTT Heparin Anti-Xa Level ABG pH 7.313 L POC ABG pO2 ABG pO2 102.8 H ABG HCO3 ABG O2 Saturation ABG Base Excess -2.9 L POC ABG pCO2 ABG Hemoglobin ABG Oxyhemoglobin Oxyhemoglobin 93.9 L Sodium Potassium Chloride Carbon Dioxide BUN Creatinine Glucose 195 H POC Glucose Lactic Acid Calcium Phosphorus Magnesium AST ALT Lactate Dehydrogenase CK-MB (CK-2) 4.3 H C-Reactive Protein NT-Pro-B Natriuret Pep 1181 H Total Protein Albumin Urine WBC (Auto) 11/24/19 11/24/19 11/24/19 04:53 04:53 10:37 WBC RBC Hgb Hct MCHC RDW Lymph % (Auto) [place] % (Auto) [place] # Eos # [place] # (Auto) Eos # (Auto) Seg Neutrophils % Seg Neuts % (Manual) Baso # (Auto) Lymphocytes % (Manual) Monocytes % (Manual) Eosinophils % (Manual) Basophils % (Manual) Seg Neutrophils # Seg Neutrophils # Man Lymphocytes # (Manual) Monocytes # (Manual) Eosinophils # (Manual) Nucleated RBC % Basophils # (Manual) APTT Heparin Anti-Xa Level ABG pH POC ABG pO2 ABG pO2 ABG HCO3 ABG O2 Saturation ABG Base Excess POC ABG pCO2 ABG Hemoglobin ABG Oxyhemoglobin Oxyhemoglobin Sodium Potassium Chloride Carbon Dioxide BUN Creatinine Glucose 162 H POC Glucose Lactic Acid 2.40 H* 2.50 H* Calcium Phosphorus Magnesium AST ALT Lactate Dehydrogenase 240 H CK-MB (CK-2) C-Reactive Protein NT-Pro-B Natriuret Pep Total Protein Albumin Urine WBC (Auto) 11/24/19 11/24/19 11/24/19 12:21 14:50 19:54 WBC RBC Hgb Hct MCHC RDW Lymph % (Auto) [place] % (Auto) [place] # Eos # [place] # (Auto) Eos # (Auto) Seg Neutrophils % Seg Neuts % (Manual) Baso # (Auto) Lymphocytes % (Manual) Monocytes % (Manual) Eosinophils % (Manual) Basophils % (Manual) Seg Neutrophils # Seg Neutrophils # Man Lymphocytes # (Manual) Monocytes # (Manual) Eosinophils # (Manual) Nucleated RBC % Basophils # (Manual) APTT Heparin Anti-Xa Level ABG pH POC ABG pO2 ABG pO2 ABG HCO3 ABG O2 Saturation ABG Base Excess POC ABG pCO2 ABG Hemoglobin ABG Oxyhemoglobin Oxyhemoglobin Sodium Potassium Chloride Carbon Dioxide BUN Creatinine Glucose POC Glucose 145 H 143 H 124 H Lactic Acid Calcium Phosphorus Magnesium AST ALT Lactate Dehydrogenase CK-MB (CK-2) C-Reactive Protein NT-Pro-B Natriuret Pep Total Protein Albumin Urine WBC (Auto) 11/25/19 11/25/19 11/25/19 00:18 03:18 05:11 WBC 13.7 H RBC Hgb Hct MCHC RDW 17.1 H Lymph % (Auto) 10.8 L [place] % (Auto) 8.7 H [place] # 1.2 H Eos # [place] # (Auto) Eos # (Auto) Seg Neutrophils % 80.2 H Seg Neuts % (Manual) Baso # (Auto) Lymphocytes % (Manual) Monocytes % (Manual) Eosinophils % (Manual) Basophils % (Manual) Seg Neutrophils # 11.0 H Seg Neutrophils # Man Lymphocytes # (Manual) Monocytes # (Manual) Eosinophils # (Manual) Nucleated RBC % Basophils # (Manual) APTT Heparin Anti-Xa Level ABG pH 7.333 L POC ABG pO2 ABG pO2 61.2 L ABG HCO3 ABG O2 Saturation 90.2 L ABG Base Excess POC ABG pCO2 ABG Hemoglobin 13.7 L ABG Oxyhemoglobin Oxyhemoglobin 88.2 L Sodium Potassium Chloride Carbon Dioxide BUN Creatinine Glucose POC Glucose 109 H Lactic Acid Calcium Phosphorus Magnesium AST ALT Lactate Dehydrogenase CK-MB (CK-2) C-Reactive Protein NT-Pro-B Natriuret Pep Total Protein Albumin Urine WBC (Auto) 11/25/19 11/25/19 11/26/19 05:11 11:40 03:12 WBC RBC Hgb Hct MCHC RDW Lymph % (Auto) [place] % (Auto) [place] # Eos # [place] # (Auto) Eos # (Auto) Seg Neutrophils % Seg Neuts % (Manual) Baso # (Auto) Lymphocytes % (Manual) Monocytes % (Manual) Eosinophils % (Manual) Basophils % (Manual) Seg Neutrophils # Seg Neutrophils # Man Lymphocytes # (Manual) Monocytes # (Manual) Eosinophils # (Manual) Nucleated RBC % Basophils # (Manual) APTT Heparin Anti-Xa Level ABG pH POC ABG pO2 ABG pO2 155.1 H ABG HCO3 27.8 H ABG O2 Saturation ABG Base Excess POC ABG pCO2 ABG Hemoglobin 12.2 L ABG Oxyhemoglobin Oxyhemoglobin Sodium Potassium Chloride Carbon Dioxide BUN 23 H Creatinine Glucose 110 H POC Glucose 108 H Lactic Acid Calcium Phosphorus Magnesium AST ALT Lactate Dehydrogenase CK-MB (CK-2) C-Reactive Protein NT-Pro-B Natriuret Pep Total Protein Albumin Urine WBC (Auto) 11/26/19 11/26/19 11/26/19 06:17 10:43 10:43 WBC 11.4 H RBC Hgb Hct MCHC RDW 17.1 H Lymph % (Auto) [place] % (Auto) [place] # Eos # [place] # (Auto) Eos # (Auto) Seg Neutrophils % Seg Neuts % (Manual) Baso # (Auto) Lymphocytes % (Manual) Monocytes % (Manual) Eosinophils % (Manual) Basophils % (Manual) Seg Neutrophils # Seg Neutrophils # Man Lymphocytes # (Manual) Monocytes # (Manual) Eosinophils # (Manual) Nucleated RBC % Basophils # (Manual) APTT Heparin Anti-Xa Level ABG pH POC ABG pO2 ABG pO2 ABG HCO3 ABG O2 Saturation ABG Base Excess POC ABG pCO2 ABG Hemoglobin ABG Oxyhemoglobin Oxyhemoglobin Sodium Potassium Chloride Carbon Dioxide BUN 29 H Creatinine Glucose POC Glucose 107 H Lactic Acid Calcium Phosphorus Magnesium AST ALT Lactate Dehydrogenase CK-MB (CK-2) C-Reactive Protein NT-Pro-B Natriuret Pep Total Protein Albumin Urine WBC (Auto) 11/26/19 11/27/19 11/27/19 17:11 01:53 04:11 WBC RBC Hgb Hct MCHC RDW Lymph % (Auto) [place] % (Auto) [place] # Eos # [place] # (Auto) Eos # (Auto) Seg Neutrophils % Seg Neuts % (Manual) Baso # (Auto) Lymphocytes % (Manual) Monocytes % (Manual) Eosinophils % (Manual) Basophils % (Manual) Seg Neutrophils # Seg Neutrophils # Man Lymphocytes # (Manual) Monocytes # (Manual) Eosinophils # (Manual) Nucleated RBC % Basophils # (Manual) APTT Heparin Anti-Xa Level ABG pH POC ABG pO2 ABG pO2 ABG HCO3 29.2 H ABG O2 Saturation ABG Base Excess 3.4 H POC ABG pCO2 ABG Hemoglobin 13.3 L ABG Oxyhemoglobin Oxyhemoglobin 94.5 L Sodium Potassium Chloride Carbon Dioxide BUN Creatinine Glucose POC Glucose 113 H 108 H Lactic Acid Calcium Phosphorus Magnesium AST ALT Lactate Dehydrogenase CK-MB (CK-2) C-Reactive Protein NT-Pro-B Natriuret Pep Total Protein Albumin Urine WBC (Auto) 11/27/19 11/28/19 11/28/19 05:27 05:00 05:25 WBC RBC Hgb Hct MCHC RDW Lymph % (Auto) [place] % (Auto) [place] # Eos # [place] # (Auto) Eos # (Auto) Seg Neutrophils % Seg Neuts % (Manual) Baso # (Auto) Lymphocytes % (Manual) Monocytes % (Manual) Eosinophils % (Manual) Basophils % (Manual) Seg Neutrophils # Seg Neutrophils # Man Lymphocytes # (Manual) Monocytes # (Manual) Eosinophils # (Manual) Nucleated RBC % Basophils # (Manual) APTT Heparin Anti-Xa Level ABG pH POC ABG pO2 68.1 L ABG pO2 ABG HCO3 ABG O2 Saturation ABG Base Excess POC ABG pCO2 ABG Hemoglobin ABG Oxyhemoglobin 91.2 L Oxyhemoglobin Sodium Potassium Chloride Carbon Dioxide BUN Creatinine Glucose POC Glucose 111 H 110 H Lactic Acid Calcium Phosphorus Magnesium AST ALT Lactate Dehydrogenase CK-MB (CK-2) C-Reactive Protein NT-Pro-B Natriuret Pep Total Protein Albumin Urine WBC (Auto) 11/28/19 11/28/19 11/28/19 12:08 13:47 13:47 WBC 11.3 H RBC Hgb Hct MCHC RDW 16.1 H Lymph % (Auto) [place] % (Auto) 9.9 H [place] # 1.1 H Eos # [place] # (Auto) Eos # (Auto) Seg Neutrophils % 71.4 H Seg Neuts % (Manual) Baso # (Auto) Lymphocytes % (Manual) Monocytes % (Manual) Eosinophils % (Manual) Basophils % (Manual) Seg Neutrophils # 8.1 H Seg Neutrophils # Man Lymphocytes # (Manual) Monocytes # (Manual) Eosinophils # (Manual) Nucleated RBC % Basophils # (Manual) APTT Heparin Anti-Xa Level ABG pH POC ABG pO2 ABG pO2 ABG HCO3 ABG O2 Saturation ABG Base Excess POC ABG pCO2 ABG Hemoglobin ABG Oxyhemoglobin Oxyhemoglobin Sodium Potassium Chloride Carbon Dioxide BUN 23 H Creatinine Glucose 123 H POC Glucose 112 H Lactic Acid Calcium Phosphorus Magnesium AST ALT Lactate Dehydrogenase CK-MB (CK-2) C-Reactive Protein NT-Pro-B Natriuret Pep Total Protein Albumin 3.7 L Urine WBC (Auto) 11/28/19 11/29/19 11/29/19 17:26 03:55 17:04 WBC RBC Hgb Hct MCHC RDW Lymph % (Auto) [place] % (Auto) [place] # Eos # [place] # (Auto) Eos # (Auto) Seg Neutrophils % Seg Neuts % (Manual) Baso # (Auto) Lymphocytes % (Manual) Monocytes % (Manual) Eosinophils % (Manual) Basophils % (Manual) Seg Neutrophils # Seg Neutrophils # Man Lymphocytes # (Manual) Monocytes # (Manual) Eosinophils # (Manual) Nucleated RBC % Basophils # (Manual) APTT Heparin Anti-Xa Level ABG pH POC ABG pO2 ABG pO2 65.7 L ABG HCO3 28.3 H ABG O2 Saturation 93.9 L ABG Base Excess 3.6 H POC ABG pCO2 ABG Hemoglobin 13.3 L ABG Oxyhemoglobin Oxyhemoglobin 91.5 L Sodium Potassium Chloride Carbon Dioxide BUN Creatinine Glucose POC Glucose 123 H 119 H Lactic Acid Calcium Phosphorus Magnesium AST ALT Lactate Dehydrogenase CK-MB (CK-2) C-Reactive Protein NT-Pro-B Natriuret Pep Total Protein Albumin Urine WBC (Auto) 11/30/19 11/30/19 11/30/19 04:17 04:17 04:56 WBC 13.4 H RBC Hgb Hct MCHC RDW 15.6 H Lymph % (Auto) [place] % (Auto) [place] # Eos # [place] # (Auto) Eos # (Auto) Seg Neutrophils % Seg Neuts % (Manual) Baso # (Auto) Lymphocytes % (Manual) Monocytes % (Manual) Eosinophils % (Manual) Basophils % (Manual) Seg Neutrophils # Seg Neutrophils # Man Lymphocytes # (Manual) Monocytes # (Manual) Eosinophils # (Manual) Nucleated RBC % Basophils # (Manual) APTT Heparin Anti-Xa Level ABG pH POC ABG pO2 ABG pO2 56.3 L ABG HCO3 29.3 H ABG O2 Saturation 91.5 L ABG Base Excess 4.7 H POC ABG pCO2 ABG Hemoglobin 12.1 L ABG Oxyhemoglobin Oxyhemoglobin 89.2 L Sodium 147 H Potassium Chloride Carbon Dioxide BUN 30 H Creatinine Glucose 124 H POC Glucose Lactic Acid Calcium Phosphorus Magnesium AST ALT Lactate Dehydrogenase CK-MB (CK-2) C-Reactive Protein NT-Pro-B Natriuret Pep Total Protein Albumin 3.8 L Urine WBC (Auto) 11/30/19 11/30/19 11/30/19 05:51 11:54 18:17 WBC RBC Hgb Hct MCHC RDW Lymph % (Auto) [place] % (Auto) [place] # Eos # [place] # (Auto) Eos # (Auto) Seg Neutrophils % Seg Neuts % (Manual) Baso # (Auto) Lymphocytes % (Manual) Monocytes % (Manual) Eosinophils % (Manual) Basophils % (Manual) Seg Neutrophils # Seg Neutrophils # Man Lymphocytes # (Manual) Monocytes # (Manual) Eosinophils # (Manual) Nucleated RBC % Basophils # (Manual) APTT Heparin Anti-Xa Level ABG pH POC ABG pO2 ABG pO2 ABG HCO3 ABG O2 Saturation ABG Base Excess POC ABG pCO2 ABG Hemoglobin ABG Oxyhemoglobin Oxyhemoglobin Sodium Potassium Chloride Carbon Dioxide BUN Creatinine Glucose POC Glucose 127 H 115 H 143 H Lactic Acid Calcium Phosphorus Magnesium AST ALT Lactate Dehydrogenase CK-MB (CK-2) C-Reactive Protein NT-Pro-B Natriuret Pep Total Protein Albumin Urine WBC (Auto) 12/01/19 12/01/19 12/01/19 01:18 05:22 12:16 WBC RBC Hgb Hct MCHC RDW Lymph % (Auto) [place] % (Auto) [place] # Eos # [place] # (Auto) Eos # (Auto) Seg Neutrophils % Seg Neuts % (Manual) Baso # (Auto) Lymphocytes % (Manual) Monocytes % (Manual) Eosinophils % (Manual) Basophils % (Manual) Seg Neutrophils # Seg Neutrophils # Man Lymphocytes # (Manual) Monocytes # (Manual) Eosinophils # (Manual) Nucleated RBC % Basophils # (Manual) APTT Heparin Anti-Xa Level ABG pH POC ABG pO2 ABG pO2 ABG HCO3 ABG O2 Saturation ABG Base Excess POC ABG pCO2 ABG Hemoglobin ABG Oxyhemoglobin Oxyhemoglobin Sodium Potassium 3.5 L Chloride 107.8 H Carbon Dioxide BUN 37 H Creatinine Glucose 157 H POC Glucose 118 H 148 H Lactic Acid Calcium 8.2 L D Phosphorus Magnesium AST 48 H ALT 60 H Lactate Dehydrogenase 194 H CK-MB (CK-2) C-Reactive Protein 8.50 H NT-Pro-B Natriuret Pep Total Protein 5.5 L Albumin 2.8 L Urine WBC (Auto) 12/01/19 12/02/19 12/02/19 18:04 00:05 05:16 WBC 11.4 H RBC Hgb Hct MCHC RDW 15.9 H Lymph % (Auto) [place] % (Auto) 9.9 H [place] # 1.1 H Eos # [place] # (Auto) Eos # (Auto) Seg Neutrophils % 70.3 H Seg Neuts % (Manual) Baso # (Auto) Lymphocytes % (Manual) Monocytes % (Manual) Eosinophils % (Manual) Basophils % (Manual) Seg Neutrophils # 8.0 H Seg Neutrophils # Man Lymphocytes # (Manual) Monocytes # (Manual) Eosinophils # (Manual) Nucleated RBC % Basophils # (Manual) APTT Heparin Anti-Xa Level ABG pH POC ABG pO2 ABG pO2 ABG HCO3 ABG O2 Saturation ABG Base Excess POC ABG pCO2 ABG Hemoglobin ABG Oxyhemoglobin Oxyhemoglobin Sodium Potassium Chloride Carbon Dioxide BUN Creatinine Glucose POC Glucose 143 H 107 H Lactic Acid Calcium Phosphorus Magnesium AST ALT Lactate Dehydrogenase CK-MB (CK-2) C-Reactive Protein NT-Pro-B Natriuret Pep Total Protein Albumin Urine WBC (Auto) 12/02/19 12/02/19 12/02/19 05:16 06:03 11:52 WBC RBC Hgb Hct MCHC RDW Lymph % (Auto) [place] % (Auto) [place] # Eos # [place] # (Auto) Eos # (Auto) Seg Neutrophils % Seg Neuts % (Manual) Baso # (Auto) Lymphocytes % (Manual) Monocytes % (Manual) Eosinophils % (Manual) Basophils % (Manual) Seg Neutrophils # Seg Neutrophils # Man Lymphocytes # (Manual) Monocytes # (Manual) Eosinophils # (Manual) Nucleated RBC % Basophils # (Manual) APTT Heparin Anti-Xa Level ABG pH POC ABG pO2 ABG pO2 ABG HCO3 ABG O2 Saturation ABG Base Excess POC ABG pCO2 ABG Hemoglobin ABG Oxyhemoglobin Oxyhemoglobin Sodium 146 H Potassium Chloride Carbon Dioxide BUN 28 H Creatinine Glucose 123 H POC Glucose 110 H 152 H Lactic Acid Calcium Phosphorus Magnesium AST ALT Lactate Dehydrogenase CK-MB (CK-2) C-Reactive Protein NT-Pro-B Natriuret Pep Total Protein Albumin Urine WBC (Auto) 12/02/19 12/02/19 12/02/19 12:58 17:58 23:36 WBC RBC Hgb Hct MCHC RDW Lymph % (Auto) [place] % (Auto) [place] # Eos # [place] # (Auto) Eos # (Auto) Seg Neutrophils % Seg Neuts % (Manual) Baso # (Auto) Lymphocytes % (Manual) Monocytes % (Manual) Eosinophils % (Manual) Basophils % (Manual) Seg Neutrophils # Seg Neutrophils # Man Lymphocytes # (Manual) Monocytes # (Manual) Eosinophils # (Manual) Nucleated RBC % Basophils # (Manual) APTT Heparin Anti-Xa Level ABG pH POC ABG pO2 78.1 L ABG pO2 ABG HCO3 ABG O2 Saturation ABG Base Excess POC ABG pCO2 ABG Hemoglobin ABG Oxyhemoglobin Oxyhemoglobin Sodium Potassium Chloride Carbon Dioxide BUN Creatinine Glucose POC Glucose 120 H 123 H Lactic Acid Calcium Phosphorus Magnesium AST ALT Lactate Dehydrogenase CK-MB (CK-2) C-Reactive Protein NT-Pro-B Natriuret Pep Total Protein Albumin Urine WBC (Auto) 12/03/19 12/03/19 12/03/19 06:03 06:14 11:46 WBC RBC Hgb Hct MCHC RDW Lymph % (Auto) [place] % (Auto) [place] # Eos # [place] # (Auto) Eos # (Auto) Seg Neutrophils % Seg Neuts % (Manual) Baso # (Auto) Lymphocytes % (Manual) Monocytes % (Manual) Eosinophils % (Manual) Basophils % (Manual) Seg Neutrophils # Seg Neutrophils # Man Lymphocytes # (Manual) Monocytes # (Manual) Eosinophils # (Manual) Nucleated RBC % Basophils # (Manual) APTT Heparin Anti-Xa Level ABG pH POC ABG pO2 ABG pO2 ABG HCO3 ABG O2 Saturation ABG Base Excess POC ABG pCO2 ABG Hemoglobin ABG Oxyhemoglobin Oxyhemoglobin Sodium Potassium Chloride Carbon Dioxide BUN Creatinine Glucose POC Glucose 142 H 130 H Lactic Acid Calcium Phosphorus Magnesium AST ALT Lactate Dehydrogenase CK-MB (CK-2) C-Reactive Protein NT-Pro-B Natriuret Pep Total Protein Albumin Urine WBC (Auto) 8.0 H 12/03/19 12/03/19 12/04/19 15:50 17:39 00:04 WBC RBC Hgb Hct MCHC RDW Lymph % (Auto) [place] % (Auto) [place] # Eos # [place] # (Auto) Eos # (Auto) Seg Neutrophils % Seg Neuts % (Manual) Baso # (Auto) Lymphocytes % (Manual) Monocytes % (Manual) Eosinophils % (Manual) Basophils % (Manual) Seg Neutrophils # Seg Neutrophils # Man Lymphocytes # (Manual) Monocytes # (Manual) Eosinophils # (Manual) Nucleated RBC % Basophils # (Manual) APTT Heparin Anti-Xa Level ABG pH POC ABG pO2 ABG pO2 ABG HCO3 ABG O2 Saturation ABG Base Excess POC ABG pCO2 ABG Hemoglobin ABG Oxyhemoglobin Oxyhemoglobin Sodium Potassium Chloride Carbon Dioxide BUN Creatinine Glucose POC Glucose 146 H 133 H Lactic Acid Calcium Phosphorus 2.40 L Magnesium AST ALT Lactate Dehydrogenase CK-MB (CK-2) C-Reactive Protein NT-Pro-B Natriuret Pep Total Protein Albumin Urine WBC (Auto) 12/04/19 12/04/19 12/04/19 03:58 03:58 05:22 WBC 12.5 H RBC Hgb 11.2 L Hct 35.2 L MCHC RDW 16.0 H Lymph % (Auto) [place] % (Auto) 9.6 H [place] # 1.2 H Eos # 0.5 H [place] # (Auto) Eos # (Auto) Seg Neutrophils % Seg Neuts % (Manual) Baso # (Auto) Lymphocytes % (Manual) Monocytes % (Manual) Eosinophils % (Manual) Basophils % (Manual) Seg Neutrophils # 8.6 H Seg Neutrophils # Man Lymphocytes # (Manual) Monocytes # (Manual) Eosinophils # (Manual) Nucleated RBC % Basophils # (Manual) APTT Heparin Anti-Xa Level ABG pH POC ABG pO2 ABG pO2 ABG HCO3 ABG O2 Saturation ABG Base Excess POC ABG pCO2 ABG Hemoglobin ABG Oxyhemoglobin Oxyhemoglobin Sodium 146 H Potassium Chloride 108.6 H Carbon Dioxide BUN 30 H Creatinine 0.7 L Glucose 121 H POC Glucose 132 H Lactic Acid Calcium Phosphorus Magnesium AST ALT Lactate Dehydrogenase CK-MB (CK-2) C-Reactive Protein NT-Pro-B Natriuret Pep Total Protein Albumin Urine WBC (Auto) 12/04/19 12/04/19 12/05/19 13:26 18:43 00:19 WBC RBC Hgb Hct MCHC RDW Lymph % (Auto) [place] % (Auto) [place] # Eos # [place] # (Auto) Eos # (Auto) Seg Neutrophils % Seg Neuts % (Manual) Baso # (Auto) Lymphocytes % (Manual) Monocytes % (Manual) Eosinophils % (Manual) Basophils % (Manual) Seg Neutrophils # Seg Neutrophils # Man Lymphocytes # (Manual) Monocytes # (Manual) Eosinophils # (Manual) Nucleated RBC % Basophils # (Manual) APTT Heparin Anti-Xa Level ABG pH POC ABG pO2 ABG pO2 ABG HCO3 ABG O2 Saturation ABG Base Excess POC ABG pCO2 ABG Hemoglobin ABG Oxyhemoglobin Oxyhemoglobin Sodium Potassium Chloride Carbon Dioxide BUN Creatinine Glucose POC Glucose 185 H 156 H 150 H Lactic Acid Calcium Phosphorus Magnesium AST ALT Lactate Dehydrogenase CK-MB (CK-2) C-Reactive Protein NT-Pro-B Natriuret Pep Total Protein Albumin Urine WBC (Auto) 12/05/19 12/05/19 12/05/19 03:37 03:37 05:14 WBC 16.3 H RBC Hgb 11.4 L Hct MCHC RDW 15.6 H Lymph % (Auto) 9.9 L [place] % (Auto) 9.7 H [place] # 1.6 H Eos # [place] # (Auto) Eos # (Auto) Seg Neutrophils % 78.0 H Seg Neuts % (Manual) Baso # (Auto) Lymphocytes % (Manual) Monocytes % (Manual) Eosinophils % (Manual) Basophils % (Manual) Seg Neutrophils # 12.7 H Seg Neutrophils # Man Lymphocytes # (Manual) Monocytes # (Manual) Eosinophils # (Manual) Nucleated RBC % Basophils # (Manual) APTT Heparin Anti-Xa Level ABG pH POC ABG pO2 ABG pO2 ABG HCO3 ABG O2 Saturation ABG Base Excess POC ABG pCO2 ABG Hemoglobin ABG Oxyhemoglobin Oxyhemoglobin Sodium 146 H Potassium Chloride 107.2 H Carbon Dioxide BUN 27 H Creatinine 0.7 L Glucose 171 H POC Glucose 168 H Lactic Acid Calcium Phosphorus Magnesium AST ALT Lactate Dehydrogenase CK-MB (CK-2) C-Reactive Protein NT-Pro-B Natriuret Pep Total Protein Albumin Urine WBC (Auto) 12/05/19 12/05/19 12/05/19 12:31 18:10 23:58 WBC RBC Hgb Hct MCHC RDW Lymph % (Auto) [place] % (Auto) [place] # Eos # [place] # (Auto) Eos # (Auto) Seg Neutrophils % Seg Neuts % (Manual) Baso # (Auto) Lymphocytes % (Manual) Monocytes % (Manual) Eosinophils % (Manual) Basophils % (Manual) Seg Neutrophils # Seg Neutrophils # Man Lymphocytes # (Manual) Monocytes # (Manual) Eosinophils # (Manual) Nucleated RBC % Basophils # (Manual) APTT Heparin Anti-Xa Level ABG pH POC ABG pO2 ABG pO2 ABG HCO3 ABG O2 Saturation ABG Base Excess POC ABG pCO2 ABG Hemoglobin ABG Oxyhemoglobin Oxyhemoglobin Sodium Potassium Chloride Carbon Dioxide BUN Creatinine Glucose POC Glucose 159 H 198 H 115 H Lactic Acid Calcium Phosphorus Magnesium AST ALT Lactate Dehydrogenase CK-MB (CK-2) C-Reactive Protein NT-Pro-B Natriuret Pep Total Protein Albumin Urine WBC (Auto) 12/06/19 12/06/19 12/06/19 05:24 05:24 05:25 WBC 14.9 H RBC Hgb 10.8 L Hct 34.0 L MCHC RDW 15.6 H Lymph % (Auto) 10.7 L [place] % (Auto) 8.3 H [place] # 1.2 H Eos # [place] # (Auto) Eos # (Auto) Seg Neutrophils % 78.7 H Seg Neuts % (Manual) Baso # (Auto) Lymphocytes % (Manual) Monocytes % (Manual) Eosinophils % (Manual) Basophils % (Manual) Seg Neutrophils # 11.7 H Seg Neutrophils # Man Lymphocytes # (Manual) Monocytes # (Manual) Eosinophils # (Manual) Nucleated RBC % Basophils # (Manual) APTT Heparin Anti-Xa Level ABG pH POC ABG pO2 ABG pO2 ABG HCO3 ABG O2 Saturation ABG Base Excess POC ABG pCO2 ABG Hemoglobin ABG Oxyhemoglobin Oxyhemoglobin Sodium 148 H Potassium 5.1 H Chloride 107.6 H Carbon Dioxide BUN 27 H Creatinine 0.7 L Glucose 155 H POC Glucose 157 H Lactic Acid Calcium Phosphorus Magnesium AST ALT Lactate Dehydrogenase CK-MB (CK-2) C-Reactive Protein NT-Pro-B Natriuret Pep Total Protein Albumin Urine WBC (Auto) 12/07/19 12/07/19 12/07/19 00:13 05:34 11:33 WBC RBC Hgb Hct MCHC RDW Lymph % (Auto) [place] % (Auto) [place] # Eos # [place] # (Auto) Eos # (Auto) Seg Neutrophils % Seg Neuts % (Manual) Baso # (Auto) Lymphocytes % (Manual) Monocytes % (Manual) Eosinophils % (Manual) Basophils % (Manual) Seg Neutrophils # Seg Neutrophils # Man Lymphocytes # (Manual) Monocytes # (Manual) Eosinophils # (Manual) Nucleated RBC % Basophils # (Manual) APTT Heparin Anti-Xa Level ABG pH POC ABG pO2 ABG pO2 ABG HCO3 ABG O2 Saturation ABG Base Excess POC ABG pCO2 ABG Hemoglobin ABG Oxyhemoglobin Oxyhemoglobin Sodium Potassium Chloride Carbon Dioxide BUN Creatinine Glucose POC Glucose 142 H 111 H 169 H Lactic Acid Calcium Phosphorus Magnesium AST ALT Lactate Dehydrogenase CK-MB (CK-2) C-Reactive Protein NT-Pro-B Natriuret Pep Total Protein Albumin Urine WBC (Auto) 12/07/19 12/07/19 12/07/19 12:41 13:25 18:19 WBC 12.4 H RBC 3.53 L Hgb 10.2 L Hct 32.1 L MCHC RDW 15.3 H Lymph % (Auto) 10.6 L [place] % (Auto) 7.8 H [place] # 1.0 H Eos # [place] # (Auto) Eos # (Auto) Seg Neutrophils % 77.6 H Seg Neuts % (Manual) Baso # (Auto) Lymphocytes % (Manual) Monocytes % (Manual) Eosinophils % (Manual) Basophils % (Manual) Seg Neutrophils # 9.6 H Seg Neutrophils # Man Lymphocytes # (Manual) Monocytes # (Manual) Eosinophils # (Manual) Nucleated RBC % Basophils # (Manual) APTT Heparin Anti-Xa Level ABG pH POC ABG pO2 ABG pO2 ABG HCO3 ABG O2 Saturation ABG Base Excess POC ABG pCO2 ABG Hemoglobin ABG Oxyhemoglobin Oxyhemoglobin Sodium 149 H Potassium Chloride 108.4 H Carbon Dioxide BUN 26 H Creatinine 0.6 L Glucose 149 H POC Glucose 164 H Lactic Acid Calcium Phosphorus Magnesium 2.60 H AST 121 H ALT 145 H Lactate Dehydrogenase CK-MB (CK-2) C-Reactive Protein NT-Pro-B Natriuret Pep Total Protein Albumin 2.6 L Urine WBC (Auto) 12/07/19 12/08/19 12/08/19 22:25 00:02 03:55 WBC 13.3 H RBC 3.40 L Hgb 9.7 L Hct 30.8 L MCHC 31 L RDW 15.5 H Lymph % (Auto) [place] % (Auto) 8.1 H [place] # 1.1 H Eos # [place] # (Auto) Eos # (Auto) Seg Neutrophils % 73.0 H Seg Neuts % (Manual) Baso # (Auto) Lymphocytes % (Manual) Monocytes % (Manual) Eosinophils % (Manual) Basophils % (Manual) Seg Neutrophils # 9.7 H Seg Neutrophils # Man Lymphocytes # (Manual) Monocytes # (Manual) Eosinophils # (Manual) Nucleated RBC % Basophils # (Manual) APTT Heparin Anti-Xa Level 0.12 L ABG pH POC ABG pO2 ABG pO2 ABG HCO3 ABG O2 Saturation ABG Base Excess POC ABG pCO2 ABG Hemoglobin ABG Oxyhemoglobin Oxyhemoglobin Sodium Potassium Chloride Carbon Dioxide BUN Creatinine Glucose POC Glucose 151 H Lactic Acid Calcium Phosphorus Magnesium AST ALT Lactate Dehydrogenase CK-MB (CK-2) C-Reactive Protein NT-Pro-B Natriuret Pep Total Protein Albumin Urine WBC (Auto) 12/08/19 12/08/19 12/08/19 03:55 05:21 06:01 WBC RBC Hgb Hct MCHC RDW Lymph % (Auto) [place] % (Auto) [place] # Eos # [place] # (Auto) Eos # (Auto) Seg Neutrophils % Seg Neuts % (Manual) Baso # (Auto) Lymphocytes % (Manual) Monocytes % (Manual) Eosinophils % (Manual) Basophils % (Manual) Seg Neutrophils # Seg Neutrophils # Man Lymphocytes # (Manual) Monocytes # (Manual) Eosinophils # (Manual) Nucleated RBC % Basophils # (Manual) APTT Heparin Anti-Xa Level 0.20 L ABG pH POC ABG pO2 ABG pO2 ABG HCO3 ABG O2 Saturation ABG Base Excess POC ABG pCO2 ABG Hemoglobin ABG Oxyhemoglobin Oxyhemoglobin Sodium 149 H Potassium Chloride 108.0 H Carbon Dioxide BUN 28 H Creatinine 0.6 L Glucose 144 H POC Glucose 143 H Lactic Acid Calcium Phosphorus Magnesium AST 98 H ALT 145 H Lactate Dehydrogenase CK-MB (CK-2) C-Reactive Protein NT-Pro-B Natriuret Pep Total Protein 6.0 L Albumin 2.4 L Urine WBC (Auto) 12/08/19 12/08/19 12/08/19 12:08 18:11 23:53 WBC RBC Hgb Hct MCHC RDW Lymph % (Auto) [place] % (Auto) [place] # Eos # [place] # (Auto) Eos # (Auto) Seg Neutrophils % Seg Neuts % (Manual) Baso # (Auto) Lymphocytes % (Manual) Monocytes % (Manual) Eosinophils % (Manual) Basophils % (Manual) Seg Neutrophils # Seg Neutrophils # Man Lymphocytes # (Manual) Monocytes # (Manual) Eosinophils # (Manual) Nucleated RBC % Basophils # (Manual) APTT Heparin Anti-Xa Level ABG pH POC ABG pO2 ABG pO2 ABG HCO3 ABG O2 Saturation ABG Base Excess POC ABG pCO2 ABG Hemoglobin ABG Oxyhemoglobin Oxyhemoglobin Sodium Potassium Chloride Carbon Dioxide BUN Creatinine Glucose POC Glucose 172 H 122 H 162 H Lactic Acid Calcium Phosphorus Magnesium AST ALT Lactate Dehydrogenase CK-MB (CK-2) C-Reactive Protein NT-Pro-B Natriuret Pep Total Protein Albumin Urine WBC (Auto) 12/09/19 12/09/19 12/09/19 04:03 04:03 05:53 WBC RBC Hgb 9.1 L Hct 28.9 L MCHC RDW Lymph % (Auto) [place] % (Auto) [place] # Eos # [place] # (Auto) Eos # (Auto) Seg Neutrophils % Seg Neuts % (Manual) Baso # (Auto) Lymphocytes % (Manual) Monocytes % (Manual) Eosinophils % (Manual) Basophils % (Manual) Seg Neutrophils # Seg Neutrophils # Man Lymphocytes # (Manual) Monocytes # (Manual) Eosinophils # (Manual) Nucleated RBC % Basophils # (Manual) APTT Heparin Anti-Xa Level 0.15 L ABG pH POC ABG pO2 ABG pO2 ABG HCO3 ABG O2 Saturation ABG Base Excess POC ABG pCO2 ABG Hemoglobin ABG Oxyhemoglobin Oxyhemoglobin Sodium Potassium Chloride Carbon Dioxide BUN Creatinine Glucose POC Glucose 124 H Lactic Acid Calcium Phosphorus Magnesium AST ALT Lactate Dehydrogenase CK-MB (CK-2) C-Reactive Protein NT-Pro-B Natriuret Pep Total Protein Albumin Urine WBC (Auto) 12/09/19 12/09/19 12/10/19 09:43 12:41 00:13 WBC RBC Hgb Hct MCHC RDW Lymph % (Auto) [place] % (Auto) [place] # Eos # [place] # (Auto) Eos # (Auto) Seg Neutrophils % Seg Neuts % (Manual) Baso # (Auto) Lymphocytes % (Manual) Monocytes % (Manual) Eosinophils % (Manual) Basophils % (Manual) Seg Neutrophils # Seg Neutrophils # Man Lymphocytes # (Manual) Monocytes # (Manual) Eosinophils # (Manual) Nucleated RBC % Basophils # (Manual) APTT Heparin Anti-Xa Level ABG pH POC ABG pO2 ABG pO2 ABG HCO3 ABG O2 Saturation ABG Base Excess POC ABG pCO2 ABG Hemoglobin ABG Oxyhemoglobin Oxyhemoglobin Sodium Potassium Chloride Carbon Dioxide BUN 25 H Creatinine 0.6 L Glucose 131 H POC Glucose 109 H 120 H Lactic Acid Calcium Phosphorus Magnesium AST ALT Lactate Dehydrogenase CK-MB (CK-2) C-Reactive Protein NT-Pro-B Natriuret Pep Total Protein Albumin Urine WBC (Auto) 12/10/19 12/10/19 12/10/19 04:14 04:14 12:00 WBC 13.3 H RBC 3.34 L Hgb 9.6 L Hct 30.4 L MCHC RDW 15.4 H Lymph % (Auto) [place] % (Auto) [place] # Eos # [place] # (Auto) Eos # (Auto) Seg Neutrophils % Seg Neuts % (Manual) 75.0 H Baso # (Auto) Lymphocytes % (Manual) 13.0 L Monocytes % (Manual) 8.0 H Eosinophils % (Manual) Basophils % (Manual) 2.0 H Seg Neutrophils # Seg Neutrophils # Man 10.0 H Lymphocytes # (Manual) Monocytes # (Manual) 1.1 H Eosinophils # (Manual) Nucleated RBC % Basophils # (Manual) 0.3 H APTT Heparin Anti-Xa Level ABG pH POC ABG pO2 ABG pO2 ABG HCO3 ABG O2 Saturation ABG Base Excess POC ABG pCO2 ABG Hemoglobin ABG Oxyhemoglobin Oxyhemoglobin Sodium 147 H Potassium Chloride 108.3 H Carbon Dioxide BUN 21 H Creatinine 0.6 L Glucose 104 H POC Glucose 133 H Lactic Acid Calcium Phosphorus Magnesium AST ALT Lactate Dehydrogenase CK-MB (CK-2) C-Reactive Protein NT-Pro-B Natriuret Pep Total Protein Albumin Urine WBC (Auto) 12/10/19 12/10/19 12/11/19 18:44 21:20 00:08 WBC 14.9 H RBC 3.36 L Hgb 9.6 L Hct 30.5 L MCHC RDW 15.4 H Lymph % (Auto) [place] % (Auto) [place] # Eos # [place] # (Auto) Eos # (Auto) Seg Neutrophils % Seg Neuts % (Manual) Baso # (Auto) Lymphocytes % (Manual) Monocytes % (Manual) Eosinophils % (Manual) Basophils % (Manual) Seg Neutrophils # Seg Neutrophils # Man Lymphocytes # (Manual) Monocytes # (Manual) Eosinophils # (Manual) Nucleated RBC % Basophils # (Manual) APTT Heparin Anti-Xa Level ABG pH POC ABG pO2 ABG pO2 ABG HCO3 ABG O2 Saturation ABG Base Excess POC ABG pCO2 ABG Hemoglobin ABG Oxyhemoglobin Oxyhemoglobin Sodium Potassium Chloride Carbon Dioxide BUN Creatinine Glucose POC Glucose 119 H 134 H Lactic Acid Calcium Phosphorus Magnesium AST ALT Lactate Dehydrogenase CK-MB (CK-2) C-Reactive Protein NT-Pro-B Natriuret Pep Total Protein Albumin Urine WBC (Auto) 12/11/19 12/11/19 12/11/19 03:54 07:28 08:36 WBC 11.9 H RBC 3.25 L Hgb 9.6 L Hct 29.2 L MCHC RDW 15.7 H Lymph % (Auto) [place] % (Auto) [place] # Eos # [place] # (Auto) Eos # (Auto) Seg Neutrophils % Seg Neuts % (Manual) Baso # (Auto) Lymphocytes % (Manual) Monocytes % (Manual) Eosinophils % (Manual) Basophils % (Manual) Seg Neutrophils # Seg Neutrophils # Man Lymphocytes # (Manual) Monocytes # (Manual) Eosinophils # (Manual) Nucleated RBC % Basophils # (Manual) APTT Heparin Anti-Xa Level 0.10 L 0.16 L ABG pH POC ABG pO2 ABG pO2 ABG HCO3 ABG O2 Saturation ABG Base Excess POC ABG pCO2 ABG Hemoglobin ABG Oxyhemoglobin Oxyhemoglobin Sodium Potassium Chloride Carbon Dioxide BUN Creatinine Glucose POC Glucose Lactic Acid Calcium Phosphorus Magnesium AST ALT Lactate Dehydrogenase CK-MB (CK-2) C-Reactive Protein NT-Pro-B Natriuret Pep Total Protein Albumin Urine WBC (Auto) 12/11/19 12/11/19 12/11/19 08:36 11:45 17:15 WBC RBC Hgb Hct MCHC RDW Lymph % (Auto) [place] % (Auto) [place] # Eos # [place] # (Auto) Eos # (Auto) Seg Neutrophils % Seg Neuts % (Manual) Baso # (Auto) Lymphocytes % (Manual) Monocytes % (Manual) Eosinophils % (Manual) Basophils % (Manual) Seg Neutrophils # Seg Neutrophils # Man Lymphocytes # (Manual) Monocytes # (Manual) Eosinophils # (Manual) Nucleated RBC % Basophils # (Manual) APTT Heparin Anti-Xa Level ABG pH POC ABG pO2 ABG pO2 ABG HCO3 ABG O2 Saturation ABG Base Excess POC ABG pCO2 ABG Hemoglobin ABG Oxyhemoglobin Oxyhemoglobin Sodium Potassium Chloride Carbon Dioxide BUN Creatinine 0.5 L Glucose 128 H POC Glucose 136 H 109 H Lactic Acid Calcium Phosphorus Magnesium AST ALT Lactate Dehydrogenase CK-MB (CK-2) C-Reactive Protein NT-Pro-B Natriuret Pep Total Protein Albumin Urine WBC (Auto) 12/12/19 12/12/19 12/12/19 00:03 05:53 05:53 WBC RBC Hgb 8.8 L Hct 27.6 L MCHC RDW Lymph % (Auto) [place] % (Auto) [place] # Eos # [place] # (Auto) Eos # (Auto) Seg Neutrophils % Seg Neuts % (Manual) Baso # (Auto) Lymphocytes % (Manual) Monocytes % (Manual) Eosinophils % (Manual) Basophils % (Manual) Seg Neutrophils # Seg Neutrophils # Man Lymphocytes # (Manual) Monocytes # (Manual) Eosinophils # (Manual) Nucleated RBC % Basophils # (Manual) APTT Heparin Anti-Xa Level 0.22 L ABG pH POC ABG pO2 ABG pO2 ABG HCO3 ABG O2 Saturation ABG Base Excess POC ABG pCO2 ABG Hemoglobin ABG Oxyhemoglobin Oxyhemoglobin Sodium Potassium Chloride Carbon Dioxide BUN Creatinine Glucose POC Glucose 116 H Lactic Acid Calcium Phosphorus Magnesium AST ALT Lactate Dehydrogenase CK-MB (CK-2) C-Reactive Protein NT-Pro-B Natriuret Pep Total Protein Albumin Urine WBC (Auto) 12/12/19 12/12/19 12/12/19 09:38 12:18 17:44 WBC RBC Hgb Hct MCHC RDW Lymph % (Auto) [place] % (Auto) [place] # Eos # [place] # (Auto) Eos # (Auto) Seg Neutrophils % Seg Neuts % (Manual) Baso # (Auto) Lymphocytes % (Manual) Monocytes % (Manual) Eosinophils % (Manual) Basophils % (Manual) Seg Neutrophils # Seg Neutrophils # Man Lymphocytes # (Manual) Monocytes # (Manual) Eosinophils # (Manual) Nucleated RBC % Basophils # (Manual) APTT Heparin Anti-Xa Level ABG pH POC ABG pO2 ABG pO2 ABG HCO3 ABG O2 Saturation ABG Base Excess POC ABG pCO2 ABG Hemoglobin ABG Oxyhemoglobin Oxyhemoglobin Sodium Potassium Chloride Carbon Dioxide BUN Creatinine Glucose POC Glucose 115 H 146 H 146 H Lactic Acid Calcium Phosphorus Magnesium AST ALT Lactate Dehydrogenase CK-MB (CK-2) C-Reactive Protein NT-Pro-B Natriuret Pep Total Protein Albumin Urine WBC (Auto) 12/12/19 12/13/19 12/13/19 23:33 05:32 05:32 WBC 13.1 H RBC 3.27 L Hgb 9.5 L Hct 29.3 L MCHC RDW 15.6 H Lymph % (Auto) [place] % (Auto) [place] # Eos # [place] # (Auto) Eos # (Auto) Seg Neutrophils % Seg Neuts % (Manual) 74.0 H Baso # (Auto) Lymphocytes % (Manual) 8.0 L Monocytes % (Manual) 9.0 H Eosinophils % (Manual) 5.0 H Basophils % (Manual) Seg Neutrophils # Seg Neutrophils # Man 9.7 H Lymphocytes # (Manual) 1.0 L Monocytes # (Manual) 1.2 H Eosinophils # (Manual) 0.7 H Nucleated RBC % Basophils # (Manual) APTT Heparin Anti-Xa Level 0.20 L ABG pH POC ABG pO2 ABG pO2 ABG HCO3 ABG O2 Saturation ABG Base Excess POC ABG pCO2 ABG Hemoglobin ABG Oxyhemoglobin Oxyhemoglobin Sodium Potassium Chloride Carbon Dioxide BUN Creatinine Glucose POC Glucose 126 H Lactic Acid Calcium Phosphorus Magnesium AST ALT Lactate Dehydrogenase CK-MB (CK-2) C-Reactive Protein NT-Pro-B Natriuret Pep Total Protein Albumin Urine WBC (Auto) 12/13/19 12/13/19 12/13/19 05:32 05:46 11:57 WBC RBC Hgb Hct MCHC RDW Lymph % (Auto) [place] % (Auto) [place] # Eos # [place] # (Auto) Eos # (Auto) Seg Neutrophils % Seg Neuts % (Manual) Baso # (Auto) Lymphocytes % (Manual) Monocytes % (Manual) Eosinophils % (Manual) Basophils % (Manual) Seg Neutrophils # Seg Neutrophils # Man Lymphocytes # (Manual) Monocytes # (Manual) Eosinophils # (Manual) Nucleated RBC % Basophils # (Manual) APTT Heparin Anti-Xa Level ABG pH POC ABG pO2 ABG pO2 ABG HCO3 ABG O2 Saturation ABG Base Excess POC ABG pCO2 ABG Hemoglobin ABG Oxyhemoglobin Oxyhemoglobin Sodium Potassium Chloride Carbon Dioxide 31 H BUN Creatinine 0.6 L Glucose 114 H POC Glucose 118 H 133 H Lactic Acid Calcium Phosphorus Magnesium AST ALT Lactate Dehydrogenase CK-MB (CK-2) C-Reactive Protein NT-Pro-B Natriuret Pep Total Protein Albumin Urine WBC (Auto) 12/13/19 12/13/19 12/14/19 17:44 23:46 05:32 WBC RBC Hgb Hct MCHC RDW Lymph % (Auto) [place] % (Auto) [place] # Eos # [place] # (Auto) Eos # (Auto) Seg Neutrophils % Seg Neuts % (Manual) Baso # (Auto) Lymphocytes % (Manual) Monocytes % (Manual) Eosinophils % (Manual) Basophils % (Manual) Seg Neutrophils # Seg Neutrophils # Man Lymphocytes # (Manual) Monocytes # (Manual) Eosinophils # (Manual) Nucleated RBC % Basophils # (Manual) APTT Heparin Anti-Xa Level ABG pH POC ABG pO2 ABG pO2 ABG HCO3 ABG O2 Saturation ABG Base Excess POC ABG pCO2 ABG Hemoglobin ABG Oxyhemoglobin Oxyhemoglobin Sodium Potassium Chloride Carbon Dioxide BUN Creatinine Glucose POC Glucose 161 H 126 H 139 H Lactic Acid Calcium Phosphorus Magnesium AST ALT Lactate Dehydrogenase CK-MB (CK-2) C-Reactive Protein NT-Pro-B Natriuret Pep Total Protein Albumin Urine WBC (Auto) 12/14/19 12/14/19 12/14/19 06:03 06:03 09:37 WBC RBC Hgb 9.6 L Hct 30.4 L MCHC RDW Lymph % (Auto) [place] % (Auto) [place] # Eos # [place] # (Auto) Eos # (Auto) Seg Neutrophils % Seg Neuts % (Manual) Baso # (Auto) Lymphocytes % (Manual) Monocytes % (Manual) Eosinophils % (Manual) Basophils % (Manual) Seg Neutrophils # Seg Neutrophils # Man Lymphocytes # (Manual) Monocytes # (Manual) Eosinophils # (Manual) Nucleated RBC % Basophils # (Manual) APTT Heparin Anti-Xa Level 0.24 L ABG pH POC ABG pO2 ABG pO2 ABG HCO3 ABG O2 Saturation ABG Base Excess POC ABG pCO2 ABG Hemoglobin ABG Oxyhemoglobin Oxyhemoglobin Sodium Potassium Chloride Carbon Dioxide BUN Creatinine 0.6 L Glucose 162 H POC Glucose Lactic Acid Calcium Phosphorus Magnesium AST 71 H ALT 118 H Lactate Dehydrogenase CK-MB (CK-2) C-Reactive Protein NT-Pro-B Natriuret Pep Total Protein 6.2 L Albumin 2.3 L Urine WBC (Auto) 12/14/19 12/14/19 12/15/19 12:06 18:18 00:19 WBC RBC Hgb Hct MCHC RDW Lymph % (Auto) [place] % (Auto) [place] # Eos # [place] # (Auto) Eos # (Auto) Seg Neutrophils % Seg Neuts % (Manual) Baso # (Auto) Lymphocytes % (Manual) Monocytes % (Manual) Eosinophils % (Manual) Basophils % (Manual) Seg Neutrophils # Seg Neutrophils # Man Lymphocytes # (Manual) Monocytes # (Manual) Eosinophils # (Manual) Nucleated RBC % Basophils # (Manual) APTT Heparin Anti-Xa Level ABG pH POC ABG pO2 ABG pO2 ABG HCO3 ABG O2 Saturation ABG Base Excess POC ABG pCO2 ABG Hemoglobin ABG Oxyhemoglobin Oxyhemoglobin Sodium Potassium Chloride Carbon Dioxide BUN Creatinine Glucose POC Glucose 147 H 166 H 123 H Lactic Acid Calcium Phosphorus Magnesium AST ALT Lactate Dehydrogenase CK-MB (CK-2) C-Reactive Protein NT-Pro-B Natriuret Pep Total Protein Albumin Urine WBC (Auto) 12/15/19 12/15/19 12/15/19 05:28 05:29 05:29 WBC 14.9 H RBC 3.19 L Hgb 9.1 L Hct 28.7 L MCHC RDW 16.0 H Lymph % (Auto) [place] % (Auto) [place] # Eos # [place] # (Auto) Eos # (Auto) Seg Neutrophils % Seg Neuts % (Manual) Baso # (Auto) Lymphocytes % (Manual) Monocytes % (Manual) Eosinophils % (Manual) Basophils % (Manual) Seg Neutrophils # Seg Neutrophils # Man Lymphocytes # (Manual) Monocytes # (Manual) Eosinophils # (Manual) Nucleated RBC % Basophils # (Manual) APTT Heparin Anti-Xa Level 0.19 L ABG pH POC ABG pO2 ABG pO2 ABG HCO3 ABG O2 Saturation ABG Base Excess POC ABG pCO2 ABG Hemoglobin ABG Oxyhemoglobin Oxyhemoglobin Sodium Potassium Chloride Carbon Dioxide BUN Creatinine 0.6 L Glucose 110 H POC Glucose Lactic Acid Calcium Phosphorus Magnesium AST ALT Lactate Dehydrogenase CK-MB (CK-2) C-Reactive Protein NT-Pro-B Natriuret Pep Total Protein Albumin Urine WBC (Auto) 12/15/19 12/15/19 12/15/19 05:53 11:50 17:26 WBC RBC Hgb Hct MCHC RDW Lymph % (Auto) [place] % (Auto) [place] # Eos # [place] # (Auto) Eos # (Auto) Seg Neutrophils % Seg Neuts % (Manual) Baso # (Auto) Lymphocytes % (Manual) Monocytes % (Manual) Eosinophils % (Manual) Basophils % (Manual) Seg Neutrophils # Seg Neutrophils # Man Lymphocytes # (Manual) Monocytes # (Manual) Eosinophils # (Manual) Nucleated RBC % Basophils # (Manual) APTT Heparin Anti-Xa Level ABG pH POC ABG pO2 ABG pO2 ABG HCO3 ABG O2 Saturation ABG Base Excess POC ABG pCO2 ABG Hemoglobin ABG Oxyhemoglobin Oxyhemoglobin Sodium Potassium Chloride Carbon Dioxide BUN Creatinine Glucose POC Glucose 119 H 132 H 128 H Lactic Acid Calcium Phosphorus Magnesium AST ALT Lactate Dehydrogenase CK-MB (CK-2) C-Reactive Protein NT-Pro-B Natriuret Pep Total Protein Albumin Urine WBC (Auto) 12/15/19 12/16/19 12/16/19 23:11 05:30 05:46 WBC RBC Hgb 8.8 L Hct 27.9 L MCHC RDW Lymph % (Auto) [place] % (Auto) [place] # Eos # [place] # (Auto) Eos # (Auto) Seg Neutrophils % Seg Neuts % (Manual) Baso # (Auto) Lymphocytes % (Manual) Monocytes % (Manual) Eosinophils % (Manual) Basophils % (Manual) Seg Neutrophils # Seg Neutrophils # Man Lymphocytes # (Manual) Monocytes # (Manual) Eosinophils # (Manual) Nucleated RBC % Basophils # (Manual) APTT Heparin Anti-Xa Level ABG pH POC ABG pO2 ABG pO2 ABG HCO3 ABG O2 Saturation ABG Base Excess POC ABG pCO2 ABG Hemoglobin ABG Oxyhemoglobin Oxyhemoglobin Sodium Potassium Chloride Carbon Dioxide BUN Creatinine Glucose POC Glucose 150 H 134 H Lactic Acid Calcium Phosphorus Magnesium AST ALT Lactate Dehydrogenase CK-MB (CK-2) C-Reactive Protein NT-Pro-B Natriuret Pep Total Protein Albumin Urine WBC (Auto) 12/16/19 12/16/19 12/16/19 05:46 05:46 11:44 WBC RBC Hgb Hct MCHC RDW Lymph % (Auto) [place] % (Auto) [place] # Eos # [place] # (Auto) Eos # (Auto) Seg Neutrophils % Seg Neuts % (Manual) Baso # (Auto) Lymphocytes % (Manual) Monocytes % (Manual) Eosinophils % (Manual) Basophils % (Manual) Seg Neutrophils # Seg Neutrophils # Man Lymphocytes # (Manual) Monocytes # (Manual) Eosinophils # (Manual) Nucleated RBC % Basophils # (Manual) APTT Heparin Anti-Xa Level 0.20 L ABG pH POC ABG pO2 ABG pO2 ABG HCO3 ABG O2 Saturation ABG Base Excess POC ABG pCO2 ABG Hemoglobin ABG Oxyhemoglobin Oxyhemoglobin Sodium Potassium Chloride Carbon Dioxide 31 H BUN Creatinine 0.5 L Glucose 147 H POC Glucose 164 H Lactic Acid Calcium Phosphorus Magnesium AST ALT Lactate Dehydrogenase CK-MB (CK-2) C-Reactive Protein NT-Pro-B Natriuret Pep Total Protein Albumin Urine WBC (Auto) 12/16/19 12/16/19 12/17/19 17:17 23:49 05:30 WBC 13.9 H RBC 3.27 L Hgb 9.4 L Hct 29.2 L MCHC RDW 16.0 H Lymph % (Auto) [place] % (Auto) 8.8 H [place] # Eos # [place] # (Auto) 1.2 H Eos # (Auto) 0.5 H Seg Neutrophils % 70.5 H Seg Neuts % (Manual) Baso # (Auto) 0.2 H Lymphocytes % (Manual) Monocytes % (Manual) Eosinophils % (Manual) Basophils % (Manual) Seg Neutrophils # 9.8 H Seg Neutrophils # Man Lymphocytes # (Manual) Monocytes # (Manual) Eosinophils # (Manual) Nucleated RBC % Basophils # (Manual) APTT Heparin Anti-Xa Level ABG pH POC ABG pO2 ABG pO2 ABG HCO3 ABG O2 Saturation ABG Base Excess POC ABG pCO2 ABG Hemoglobin ABG Oxyhemoglobin Oxyhemoglobin Sodium Potassium Chloride Carbon Dioxide BUN Creatinine Glucose POC Glucose 162 H 144 H Lactic Acid Calcium Phosphorus Magnesium AST ALT Lactate Dehydrogenase CK-MB (CK-2) C-Reactive Protein NT-Pro-B Natriuret Pep Total Protein Albumin Urine WBC (Auto) 12/17/19 12/17/19 12/17/19 05:30 06:06 11:50 WBC RBC Hgb Hct MCHC RDW Lymph % (Auto) [place] % (Auto) [place] # Eos # [place] # (Auto) Eos # (Auto) Seg Neutrophils % Seg Neuts % (Manual) Baso # (Auto) Lymphocytes % (Manual) Monocytes % (Manual) Eosinophils % (Manual) Basophils % (Manual) Seg Neutrophils # Seg Neutrophils # Man Lymphocytes # (Manual) Monocytes # (Manual) Eosinophils # (Manual) Nucleated RBC % Basophils # (Manual) APTT Heparin Anti-Xa Level ABG pH POC ABG pO2 ABG pO2 ABG HCO3 ABG O2 Saturation ABG Base Excess POC ABG pCO2 ABG Hemoglobin ABG Oxyhemoglobin Oxyhemoglobin Sodium Potassium Chloride 97.4 L Carbon Dioxide 32 H BUN Creatinine 0.5 L Glucose 135 H POC Glucose 151 H 140 H Lactic Acid Calcium Phosphorus Magnesium AST ALT Lactate Dehydrogenase CK-MB (CK-2) C-Reactive Protein NT-Pro-B Natriuret Pep Total Protein Albumin Urine WBC (Auto) 12/17/19 12/17/19 12/18/19 17:50 23:46 05:17 WBC RBC Hgb 8.8 L Hct 28.0 L MCHC RDW Lymph % (Auto) [place] % (Auto) [place] # Eos # [place] # (Auto) Eos # (Auto) Seg Neutrophils % Seg Neuts % (Manual) Baso # (Auto) Lymphocytes % (Manual) Monocytes % (Manual) Eosinophils % (Manual) Basophils % (Manual) Seg Neutrophils # Seg Neutrophils # Man Lymphocytes # (Manual) Monocytes # (Manual) Eosinophils # (Manual) Nucleated RBC % Basophils # (Manual) APTT Heparin Anti-Xa Level ABG pH POC ABG pO2 ABG pO2 ABG HCO3 ABG O2 Saturation ABG Base Excess POC ABG pCO2 ABG Hemoglobin ABG Oxyhemoglobin Oxyhemoglobin Sodium Potassium Chloride Carbon Dioxide BUN Creatinine Glucose POC Glucose 158 H 150 H Lactic Acid Calcium Phosphorus Magnesium AST ALT Lactate Dehydrogenase CK-MB (CK-2) C-Reactive Protein NT-Pro-B Natriuret Pep Total Protein Albumin Urine WBC (Auto) 12/18/19 12/18/19 12/18/19 05:17 05:49 11:12 WBC RBC Hgb Hct MCHC RDW Lymph % (Auto) [place] % (Auto) [place] # Eos # [place] # (Auto) Eos # (Auto) Seg Neutrophils % Seg Neuts % (Manual) Baso # (Auto) Lymphocytes % (Manual) Monocytes % (Manual) Eosinophils % (Manual) Basophils % (Manual) Seg Neutrophils # Seg Neutrophils # Man Lymphocytes # (Manual) Monocytes # (Manual) Eosinophils # (Manual) Nucleated RBC % Basophils # (Manual) APTT Heparin Anti-Xa Level 0.16 L ABG pH POC ABG pO2 ABG pO2 ABG HCO3 ABG O2 Saturation ABG Base Excess POC ABG pCO2 ABG Hemoglobin ABG Oxyhemoglobin Oxyhemoglobin Sodium Potassium Chloride Carbon Dioxide BUN Creatinine Glucose POC Glucose 127 H 191 H Lactic Acid Calcium Phosphorus Magnesium AST ALT Lactate Dehydrogenase CK-MB (CK-2) C-Reactive Protein NT-Pro-B Natriuret Pep Total Protein Albumin Urine WBC (Auto) 12/18/19 12/18/19 12/19/19 17:03 20:16 00:08 WBC RBC Hgb Hct MCHC RDW Lymph % (Auto) [place] % (Auto) [place] # Eos # [place] # (Auto) Eos # (Auto) Seg Neutrophils % Seg Neuts % (Manual) Baso # (Auto) Lymphocytes % (Manual) Monocytes % (Manual) Eosinophils % (Manual) Basophils % (Manual) Seg Neutrophils # Seg Neutrophils # Man Lymphocytes # (Manual) Monocytes # (Manual) Eosinophils # (Manual) Nucleated RBC % Basophils # (Manual) APTT Heparin Anti-Xa Level ABG pH POC ABG pO2 ABG pO2 ABG HCO3 ABG O2 Saturation ABG Base Excess POC ABG pCO2 ABG Hemoglobin ABG Oxyhemoglobin Oxyhemoglobin Sodium Potassium Chloride Carbon Dioxide BUN Creatinine Glucose POC Glucose 133 H 128 H 129 H Lactic Acid Calcium Phosphorus Magnesium AST ALT Lactate Dehydrogenase CK-MB (CK-2) C-Reactive Protein NT-Pro-B Natriuret Pep Total Protein Albumin Urine WBC (Auto) 12/19/19 12/19/19 12/19/19 04:45 04:45 05:35 WBC RBC Hgb Hct MCHC RDW Lymph % (Auto) [place] % (Auto) [place] # Eos # [place] # (Auto) Eos # (Auto) Seg Neutrophils % Seg Neuts % (Manual) Baso # (Auto) Lymphocytes % (Manual) Monocytes % (Manual) Eosinophils % (Manual) Basophils % (Manual) Seg Neutrophils # Seg Neutrophils # Man Lymphocytes # (Manual) Monocytes # (Manual) Eosinophils # (Manual) Nucleated RBC % Basophils # (Manual) APTT Heparin Anti-Xa Level 0.17 L ABG pH POC ABG pO2 ABG pO2 ABG HCO3 ABG O2 Saturation ABG Base Excess POC ABG pCO2 ABG Hemoglobin ABG Oxyhemoglobin Oxyhemoglobin Sodium Potassium Chloride Carbon Dioxide BUN Creatinine Glucose POC Glucose 120 H Lactic Acid Calcium Phosphorus Magnesium AST ALT Lactate Dehydrogenase 228 H CK-MB (CK-2) C-Reactive Protein NT-Pro-B Natriuret Pep Total Protein Albumin Urine WBC (Auto) 12/19/19 12/19/19 12/19/19 09:20 11:32 11:32 WBC 14.6 H RBC 3.08 L Hgb 9.0 L Hct 26.8 L MCHC RDW 15.9 H Lymph % (Auto) [place] % (Auto) [place] # Eos # [place] # (Auto) Eos # (Auto) Seg Neutrophils % Seg Neuts % (Manual) 82.0 H Baso # (Auto) Lymphocytes % (Manual) 10.0 L Monocytes % (Manual) Eosinophils % (Manual) Basophils % (Manual) Seg Neutrophils # Seg Neutrophils # Man 12.0 H Lymphocytes # (Manual) Monocytes # (Manual) 0.9 H Eosinophils # (Manual) Nucleated RBC % 1.0 H Basophils # (Manual) APTT Heparin Anti-Xa Level ABG pH 7.451 H POC ABG pO2 ABG pO2 62.6 L ABG HCO3 33.2 H ABG O2 Saturation 93.8 L ABG Base Excess 8.3 H POC ABG pCO2 ABG Hemoglobin 8.3 L ABG Oxyhemoglobin Oxyhemoglobin 91.9 L Sodium Potassium Chloride 95.0 L Carbon Dioxide 33 H BUN 22 H Creatinine 0.6 L Glucose 150 H POC Glucose Lactic Acid Calcium Phosphorus Magnesium AST ALT Lactate Dehydrogenase CK-MB (CK-2) C-Reactive Protein NT-Pro-B Natriuret Pep Total Protein 6.2 L Albumin 2.4 L Urine WBC (Auto) 12/19/19 12/19/19 12/20/19 11:56 18:17 00:09 WBC RBC Hgb Hct MCHC RDW Lymph % (Auto) [place] % (Auto) [place] # Eos # [place] # (Auto) Eos # (Auto) Seg Neutrophils % Seg Neuts % (Manual) Baso # (Auto) Lymphocytes % (Manual) Monocytes % (Manual) Eosinophils % (Manual) Basophils % (Manual) Seg Neutrophils # Seg Neutrophils # Man Lymphocytes # (Manual) Monocytes # (Manual) Eosinophils # (Manual) Nucleated RBC % Basophils # (Manual) APTT Heparin Anti-Xa Level ABG pH POC ABG pO2 ABG pO2 ABG HCO3 ABG O2 Saturation ABG Base Excess POC ABG pCO2 ABG Hemoglobin ABG Oxyhemoglobin Oxyhemoglobin Sodium Potassium Chloride Carbon Dioxide BUN Creatinine Glucose POC Glucose 156 H 156 H 155 H Lactic Acid Calcium Phosphorus Magnesium AST ALT Lactate Dehydrogenase CK-MB (CK-2) C-Reactive Protein NT-Pro-B Natriuret Pep Total Protein Albumin Urine WBC (Auto) 12/20/19 12/20/19 12/20/19 05:26 06:02 18:17 WBC RBC Hgb Hct MCHC RDW Lymph % (Auto) [place] % (Auto) [place] # Eos # [place] # (Auto) Eos # (Auto) Seg Neutrophils % Seg Neuts % (Manual) Baso # (Auto) Lymphocytes % (Manual) Monocytes % (Manual) Eosinophils % (Manual) Basophils % (Manual) Seg Neutrophils # Seg Neutrophils # Man Lymphocytes # (Manual) Monocytes # (Manual) Eosinophils # (Manual) Nucleated RBC % Basophils # (Manual) APTT Heparin Anti-Xa Level 0.19 L ABG pH POC ABG pO2 ABG pO2 ABG HCO3 ABG O2 Saturation ABG Base Excess POC ABG pCO2 ABG Hemoglobin ABG Oxyhemoglobin Oxyhemoglobin Sodium Potassium Chloride Carbon Dioxide BUN Creatinine Glucose POC Glucose 137 H 128 H Lactic Acid Calcium Phosphorus Magnesium AST ALT Lactate Dehydrogenase CK-MB (CK-2) C-Reactive Protein NT-Pro-B Natriuret Pep Total Protein Albumin Urine WBC (Auto) 12/20/19 12/21/19 12/21/19 23:34 05:31 05:31 WBC 12.7 H RBC 3.09 L Hgb 8.9 L Hct 27.4 L MCHC RDW 15.8 H Lymph % (Auto) 12.1 L [place] % (Auto) 7.8 H [place] # Eos # [place] # (Auto) 1.0 H Eos # (Auto) Seg Neutrophils % 77.1 H Seg Neuts % (Manual) Baso # (Auto) Lymphocytes % (Manual) Monocytes % (Manual) Eosinophils % (Manual) Basophils % (Manual) Seg Neutrophils # 9.8 H Seg Neutrophils # Man Lymphocytes # (Manual) Monocytes # (Manual) Eosinophils # (Manual) Nucleated RBC % Basophils # (Manual) APTT Heparin Anti-Xa Level ABG pH POC ABG pO2 ABG pO2 ABG HCO3 ABG O2 Saturation ABG Base Excess POC ABG pCO2 ABG Hemoglobin ABG Oxyhemoglobin Oxyhemoglobin Sodium Potassium Chloride 96.9 L Carbon Dioxide 37 H BUN 27 H Creatinine 0.7 L Glucose 140 H POC Glucose 145 H Lactic Acid Calcium Phosphorus Magnesium AST ALT Lactate Dehydrogenase CK-MB (CK-2) C-Reactive Protein NT-Pro-B Natriuret Pep Total Protein Albumin Urine WBC (Auto) 12/21/19 12/21/19 12/21/19 05:38 10:13 11:51 WBC RBC Hgb Hct MCHC RDW Lymph % (Auto) [place] % (Auto) [place] # Eos # [place] # (Auto) Eos # (Auto) Seg Neutrophils % Seg Neuts % (Manual) Baso # (Auto) Lymphocytes % (Manual) Monocytes % (Manual) Eosinophils % (Manual) Basophils % (Manual) Seg Neutrophils # Seg Neutrophils # Man Lymphocytes # (Manual) Monocytes # (Manual) Eosinophils # (Manual) Nucleated RBC % Basophils # (Manual) APTT 23.9 L Heparin Anti-Xa Level < 0.10 L ABG pH POC ABG pO2 ABG pO2 ABG HCO3 ABG O2 Saturation ABG Base Excess POC ABG pCO2 ABG Hemoglobin ABG Oxyhemoglobin Oxyhemoglobin Sodium Potassium Chloride Carbon Dioxide BUN Creatinine Glucose POC Glucose 151 H 145 H Lactic Acid Calcium Phosphorus Magnesium AST ALT Lactate Dehydrogenase CK-MB (CK-2) C-Reactive Protein NT-Pro-B Natriuret Pep Total Protein Albumin Urine WBC (Auto) 12/21/19 12/22/19 12/22/19 17:16 00:01 01:33 WBC RBC Hgb Hct MCHC RDW Lymph % (Auto) [place] % (Auto) [place] # Eos # [place] # (Auto) Eos # (Auto) Seg Neutrophils % Seg Neuts % (Manual) Baso # (Auto) Lymphocytes % (Manual) Monocytes % (Manual) Eosinophils % (Manual) Basophils % (Manual) Seg Neutrophils # Seg Neutrophils # Man Lymphocytes # (Manual) Monocytes # (Manual) Eosinophils # (Manual) Nucleated RBC % Basophils # (Manual) APTT Heparin Anti-Xa Level 0.10 L ABG pH POC ABG pO2 ABG pO2 ABG HCO3 ABG O2 Saturation ABG Base Excess POC ABG pCO2 ABG Hemoglobin ABG Oxyhemoglobin Oxyhemoglobin Sodium Potassium Chloride Carbon Dioxide BUN Creatinine Glucose POC Glucose 167 H 179 H Lactic Acid Calcium Phosphorus Magnesium AST ALT Lactate Dehydrogenase CK-MB (CK-2) C-Reactive Protein NT-Pro-B Natriuret Pep Total Protein Albumin Urine WBC (Auto) 12/22/19 12/22/19 12/22/19 03:22 05:10 05:10 WBC 13.8 H RBC 3.20 L Hgb 8.9 L Hct 28.1 L MCHC RDW 15.9 H Lymph % (Auto) [place] % (Auto) [place] # Eos # [place] # (Auto) Eos # (Auto) Seg Neutrophils % Seg Neuts % (Manual) Baso # (Auto) Lymphocytes % (Manual) Monocytes % (Manual) Eosinophils % (Manual) Basophils % (Manual) Seg Neutrophils # Seg Neutrophils # Man Lymphocytes # (Manual) Monocytes # (Manual) Eosinophils # (Manual) Nucleated RBC % Basophils # (Manual) APTT Heparin Anti-Xa Level ABG pH POC ABG pO2 52.3 L ABG pO2 ABG HCO3 ABG O2 Saturation ABG Base Excess POC ABG pCO2 52.9 H ABG Hemoglobin 10.7 L ABG Oxyhemoglobin 84 L Oxyhemoglobin Sodium Potassium Chloride 96.6 L Carbon Dioxide BUN 25 H Creatinine 0.7 L Glucose 129 H POC Glucose Lactic Acid Calcium Phosphorus Magnesium AST ALT Lactate Dehydrogenase CK-MB (CK-2) C-Reactive Protein NT-Pro-B Natriuret Pep Total Protein Albumin Urine WBC (Auto) 12/22/19 05:18 WBC RBC Hgb Hct MCHC RDW Lymph % (Auto) [place] % (Auto) [place] # Eos # [place] # (Auto) Eos # (Auto) Seg Neutrophils % Seg Neuts % (Manual) Baso # (Auto) Lymphocytes % (Manual) Monocytes % (Manual) Eosinophils % (Manual) Basophils % (Manual) Seg Neutrophils # Seg Neutrophils # Man Lymphocytes # (Manual) Monocytes # (Manual) Eosinophils # (Manual) Nucleated RBC % Basophils # (Manual) APTT Heparin Anti-Xa Level ABG pH POC ABG pO2 ABG pO2 ABG HCO3 ABG O2 Saturation ABG Base Excess POC ABG pCO2 ABG Hemoglobin ABG Oxyhemoglobin Oxyhemoglobin Sodium Potassium Chloride Carbon Dioxide BUN Creatinine Glucose POC Glucose 131 H Lactic Acid Calcium Phosphorus Magnesium AST ALT Lactate Dehydrogenase CK-MB (CK-2) C-Reactive Protein NT-Pro-B Natriuret Pep Total Protein Albumin Urine WBC (Auto) Chest x-ray: pending Allied health notes reviewed: nursing
[2019-12-22] MEDS: DOCUSATE SODIUM 100 MG/10 ML ORAL LIQD FEEDTUBE SCH ×2 (09:56→21:52)
[2019-12-22] MEDS: QUEtiapine 25 MG TAB PO SCH (09:56)
[2019-12-22] MEDS: AMIODARONE 200 MG TAB PO SCH ×2 (09:56→21:53)
[2019-12-22] MEDS: FAMOTIDINE 20 MG TAB PO SCH ×2 (09:56→21:53)
[2019-12-22] MEDS: ACETAMINOPHEN 325 MG/10.15 ML ORAL LIQD UNIT DOSE FEEDTUBE PRN (09:56)
[2019-12-22] MEDS: fentaNYL DRIP Premix 2,000 MCG/100 ML BAG IV SCH (09:57)
[2019-12-22] MEDS: HEPARIN/ 0.45% NACL DRIP 25,000 UNIT/500 ML BAG IV SCH (09:59)
[2019-12-22] MEDS: fentaNYL 25 MCG/HR PATCH 72HR TD SCH (12:53)
[2019-12-22] MEDS: QUEtiapine 100 MG TAB PO SCH ×2 (13:02→21:53)
--- NOTE | 2019-12-22 13:08 | Progress Note ---
Assessment and Plan Cultures: Blood culture 12/02/2019 negative Blood culture 11/24/2019 negative Urine culture 11/24/2019 negative COVID-19 negative x2 12/04/2019 resp culture: PsA 12/06/2019 blood cultures: No growth today MRSA PCR negative A/P: 64-year-old male past medical history hypertension, COPD, CAD, CHF with reduced ejection fraction admitted with acute hypoxic respiratory failure likely secondary to pneumonia #Sepsis: With intermittent low-grade fever, likely due to PE/DVT. #Acute hypoxemic respiratory failure: Likely secondary to pneumonia/PE, COVID-19 testing negative x 2. Remains intubated, failed CPAP trial. + R pleural effusion/endobronchial plugging #Bilateral pneumonia: COVID-19 negative twice. Culture grew Pseudomonas, pansensitive. Completed abx. Repeat chest x-ray with persistent right base opacity, concerning for possible effusion. CT showed PE. US guided thoracentesis was planned 12/21/2019 but showed minimal effusion, so not done. #CHF: per primary team #COPD: per pulmonary #PE/right DVT: on anticoagulation per primary. Recs: -Monitor off antibiotics-completed 10-day cefepime course on 12/15/2019 -if febrile >101.5F, obtain blood and ET aspirate cultures Chet Saha MD, FACP [facility] ([facility] C: [phone] O: [phone] F: [phone] Subjective Date of service: 12/22/19 Principal diagnosis: Ac hypoxemic resp failure; Pneumonia; PUI COVID-19; CHF; COPD; HTN Interval history: Low grade fever today. Remains intubated, but awake on the vent. Objective - Exam Narrative Exam: Physical Exam: Constitutional: opens eyes, intubated, on the vent Head, Ears, Nose: Normocephalic, atraumatic. External ears, nose normal Eyes: Conjunctivae/corneas clear. No icterus. No ptosis. Neck: intubated Oral: intubated Cardiovascular: S1, S2 + Respiratory: AE fair bilaterally and equal GI: Soft, bowel sounds + Musculoskeletal: No pedal edema, no cyanosis. Skin: No rash or abscess Hem/Lymphatic: No palpable cervical or supraclavicular nodes. No lymphangitis Psych: no agitation Neurological: follows basic commands, intubated, on the vent, exam limited - Constitutional Vitals: Vital Signs Temp Pulse Resp BP Pulse Ox 100.4 F H 90 15 110/70 95 12/22/19 08:00 12/22/19 13:02 12/22/19 12:53 12/22/19 13:02 12/22/19 12:00 Temperature -Last 24 Hours Temperature 100.4 F Temperature 98.9 F Temperature 98.8 F Temperature 97.9 F Temperature 99.4 F - Labs CBC & Chem 7: 12/22/19 05:10 12/22/19 05:10 Labs: Abnormal lab results 12/21/19 12/22/19 12/22/19 Range/Units 17:16 00:01 01:33 WBC (4.5-11.0) K/mm3 RBC (3.65-5.03) M/mm3 Hgb (11.8-15.2) gm/dl Hct (35.5-45.6) % RDW (13.2-15.2) % Heparin Anti-Xa Level 0.10 L (0.3-0.7) U.I./ml POC ABG pCO2 (32.0-48.0) mmHg POC ABG pO2 (83-108) mmHg ABG Hemoglobin (12.0-17.5) ABG Oxyhemoglobin (94-98) Chloride (98-107) mmol/L BUN (9-20) mg/dL Creatinine (0.8-1.3) mg/dL Glucose (75-100) mg/dL POC Glucose 167 H 179 H (70-105) 12/22/19 12/22/19 12/22/19 Range/Units 03:22 05:10 05:10 WBC 13.8 H (4.5-11.0) K/mm3 RBC 3.20 L (3.65-5.03) M/mm3 Hgb 8.9 L (11.8-15.2) gm/dl Hct 28.1 L (35.5-45.6) % RDW 15.9 H (13.2-15.2) % Heparin Anti-Xa Level (0.3-0.7) U.I./ml POC ABG pCO2 52.9 H (32.0-48.0) mmHg POC ABG pO2 52.3 L (83-108) mmHg ABG Hemoglobin 10.7 L (12.0-17.5) ABG Oxyhemoglobin 84 L (94-98) Chloride 96.6 L (98-107) mmol/L BUN 25 H (9-20) mg/dL Creatinine 0.7 L (0.8-1.3) mg/dL Glucose 129 H (75-100) mg/dL POC Glucose (70-105) 12/22/19 Range/Units 05:18 WBC (4.5-11.0) K/mm3 RBC (3.65-5.03) M/mm3 Hgb (11.8-15.2) gm/dl Hct (35.5-45.6) % RDW (13.2-15.2) % Heparin Anti-Xa Level (0.3-0.7) U.I./ml POC ABG pCO2 (32.0-48.0) mmHg POC ABG pO2 (83-108) mmHg ABG Hemoglobin (12.0-17.5) ABG Oxyhemoglobin (94-98) Chloride (98-107) mmol/L BUN (9-20) mg/dL Creatinine (0.8-1.3) mg/dL Glucose (75-100) mg/dL POC Glucose 131 H (70-105)
--- NOTE | 2019-12-22 13:19 | Progress Note ---
Assessment and Plan Transient Afib after CPAP trial currently in sinus rhythm Ischemic Cardiomyopathy, resolving re-echo this presentation reports an LVEF 40-45%. echo 08/2018: decreased LVEF 20-25%. Hx of CAD [facility] 12/2018: mild in-stent restenosis. No significant residual disease. Multifocal pneumonia with intermittent fevers negative COVID-19 test x 2 Respiratory failure Acute PE/DVT on IV heparin Recommendations: Continue amiodarone and metoprolol for suppression of paroxysmal atrial fibrillation. Otherwise, conservative cardiac management. Subjective Date of service: 12/22/19 Principal diagnosis: Ac hypoxemic resp failure; Pneumonia; PUI COVID-19; CHF; COPD; HTN Interval history: Remains intubated on the vent. Stable sinus rhythm on telemetry. Objective Vital Signs Temp Pulse Pulse Resp BP Pulse Ox 12/22/19 13:02 90 110/70 12/22/19 12:53 15 12/22/19 12:00 100 H 127/67 95 12/22/19 11:00 100 H 14 127/67 95 12/22/19 10:30 105 H 17 171/103 97 12/22/19 10:00 128 H 30 H 171/103 94 12/22/19 09:30 123 H 27 H 175/135 90 12/22/19 09:00 113 H 26 H 123/40 90 12/22/19 08:30 99 H 15 123/40 96 12/22/19 08:00 100.4 F H 110 H 27 H 115/69 85 12/22/19 07:46 92 H 115/69 94 12/22/19 07:30 92 H 17 115/69 90 12/22/19 07:00 93 H 17 110/67 93 12/22/19 06:30 94 H 14 115/69 97 12/22/19 06:03 91 H 115/69 12/22/19 06:00 94 H 14 137/66 97 12/22/19 05:30 86 11 L 137/66 96 12/22/19 05:00 89 13 137/66 93 12/22/19 04:35 99 H 141/115 92 12/22/19 04:31 109 H 19 141/115 92 12/22/19 04:01 105 H 19 141/115 91 12/22/19 04:00 109 H 109 H 14 92 12/22/19 03:31 105 H 21 104/80 91 09/29/20 03:26 98.9 F 12/22/19 03:01 95 H 15 104/80 89 12/22/19 02:31 92 H 13 103/79 91 12/22/19 02:00 98 H 16 103/79 92 12/22/19 01:31 94 H 15 114/74 93 12/22/19 01:00 96 H 16 118/83 92 12/22/19 00:31 88 14 114/74 92 12/22/19 00:00 91 H 91 H 14 114/74 91 12/21/19 23:31 92 H 15 122/81 93 12/21/19 23:27 98.8 F 12/21/19 23:00 90 15 81/48 95 12/21/19 22:40 93 H 15 115/67 90 12/21/19 22:31 84 11 L 115/67 95 12/21/19 22:01 79 12 115/67 93 12/21/19 21:31 102 H 18 139/92 91 12/21/19 21:09 98 H 132/79 12/21/19 21:01 86 15 132/79 94 12/21/19 20:31 92 H 12 139/92 93 12/21/19 20:08 106 H 139/92 91 12/21/19 20:00 97.9 F 92 H 92 H 15 139/92 89 12/21/19 19:30 85 16 143/101 88 12/21/19 19:01 101 H 17 143/101 89 12/21/19 18:31 91 H 16 147/95 90 12/21/19 18:00 99 H 16 152/110 95 12/21/19 17:31 87 14 150/97 92 12/21/19 17:01 94 H 18 150/97 96 12/21/19 16:31 93 H 16 131/81 92 12/21/19 16:30 91 H 5 L 131/81 96 12/21/19 16:01 88 24 131/81 93 12/21/19 16:00 99.4 F 89 88 24 93 12/21/19 15:31 92 H 17 149/99 93 12/21/19 15:27 98 H 19 105/72 12/21/19 14:31 88 14 105/72 95 12/21/19 14:00 85 13 105/72 96 12/21/19 13:31 87 11 L 105/72 96 - Physical Examination General: Other (intubated on the vent) Cardiac: Positive: Reg Rate and Rhythm Extremities: Absent: edema - Labs and Meds CBC 12/22/19 Range/Units 05:10 WBC 13.8 H (4.5-11.0) K/mm3 RBC 3.20 L (3.65-5.03) M/mm3 Hgb 8.9 L (11.8-15.2) gm/dl Hct 28.1 L (35.5-45.6) % Plt Count 302 (140-440) K/mm3 Comprehensive Metabolic Panel 12/22/19 Range/Units 05:10 Sodium 139 (137-145) mmol/L Potassium 4.8 (3.6-5.0) mmol/L Chloride 96.6 L (98-107) mmol/L Carbon Dioxide 30 D (22-30) mmol/L BUN 25 H (9-20) mg/dL Creatinine 0.7 L (0.8-1.3) mg/dL Glucose 129 H (75-100) mg/dL Calcium 9.3 (8.4-10.2) mg/dL - Allied health notes Allied health notes reviewed: nursing
--- NOTE | 2019-12-22 14:18 | XRay Report ---
CHEST 1 VIEW INDICATION / CLINICAL INFORMATION: RLL atelectasis. COMPARISON: 12/18/2019 FINDINGS: SUPPORT DEVICES: Endotracheal tube, nasogastric tube HEART / MEDIASTINUM: No significant abnormality. LUNGS / PLEURA: Worsening bilateral airspace disease No pneumothorax. ADDITIONAL FINDINGS: No significant additional findings. IMPRESSION: Bilateral airspace disease has worsened since 12/18/2019. Signer Name: Jovanni Yadav MD FACR Signed: 12/22/2019 2:13 PM Workstation Name: [employer]
--- NOTE | 2019-12-22 17:19 | Progress Note ---
Assessment and Plan -Acute LLL PE -Acute RLE DVT -Persistent fevers; secondary to sepsis and acute PE/DVT -Severe sepsis; secondary to bilateral pneumonia, persistent fevers -Acute hypoxemic respiratory failure, on vent unable to wean -Bilateral pneumonia, community acquired, -Aspiration Pneumonia -Sustained SVT, on amiodarone -Acute on chronic systolic congestive heart failure -History of cerebrovascular accident. -Tobacco use disorder -Alcohol abuse with DT -Acute chronic obstructive pulmonary disease exacerbation. -Hypertension and hypertensive urgency at presentation. -History of arthritis. -Paroxysmal atrial fibrillation -Leukocytosis with possible sepsis. -Lactic acidosis. -Bleeding from ET tube -Oropharyngeal dysphagia -S/P Knee surgery -History of peptic Ulcer Surgery -DVT prophylaxis COVID-19 test; 11/24/2019; negative 11/26/2019; negative Plan Continue ventilatory support Wean as tolerated as per critical care Completed abx, ID following Aspiration precautions Continue amiodarone and metoprolol for suppression of paroxysmal atrial fibrillation. Anticoagulation currently with intravenous heparin. Plan for thoracentesis May need trach and PEG DVT/GI prophy Heparin/Protonix Plan of care reviewed with the patient's nurse Closely monitor the patient and adjust management as needed The high probability of a clinically significant, sudden or life threatening deterioration of the [Respiratory, cardiovascular & neurological] system(s) required my full and direct attention, intervention and personal management. The aggregate critical care time was [33] minutes without overlap. Time includes spent on [x] Data Review and interpretation [x] Patient assessment and monitoring of vital signs [x] Documentation [x] Medication orders and management Brief History Patient is a 64-year-old male with known history of hypertension, COPD, history of coronary artery disease, CHF with ejection fraction of 20 to 25% in August 2018 presenting to the emergency room via EMS complaining of shortness of breath. Patient was found to be hypoxic and in respiratory distress. Patient was placed on CPAP in route to the hospital. Oxygen saturation was said to be 88%. Started on Solu-Medrol, Lasix and magnesium in ED, patient was also found to be lethargic with an oxygen saturation of about 91% on CPAP. He was subsequently intubated. Work-up in the emergency room including chest x-ray reveals bilateral pneumonia. He had an elevated white count of 14 and also had an elevated BNP. Patient to be admitted to the ICU and placed on empiric IV antibiotics for pneumonia. He will also be tested positive for COVID-19 and placed on isolation precautions. Rmains intubated on ventilatory support, sputum cultures positive for Pseudomonas, ID changed antibiotics to cefepime and Vanco. 11/25: Leukocytosis improving. Continue current management anticipate extubation possible today. 11/26. Still intubated. Failed SBT yesterday. Repeat COVID-19 test is negative. 11/27. CT head ordered for possible neuro status change is negative. More responsive as the day progressed as per RN. Chest xray today shows interval improvement. He is still on antibiotics - will complete regimen today. 11/28: Considering difficult extubation and severe cardiomyopathy, will obtain cardiology consult. Aspiration precautions, tube feeds held, continue antibiotics. 11/29: Still with intermittent fever but improving imaging, continue diuresis. 11/30; Extremely agitated when placed on PSV- SVT, hypertension. Patiet acknowledged that he drinks. IV Ativan given, CIWA protocol initiated. 12 lead ordered showed SVT, one dose of amiodarone ordered. continue to follow up cardiology recommendation 12/01: Patient remains on mechanical ventilation, getting SBT trial. Remains in SVT, started on amiodarone drip by cardiology. 12/02; patient is on mechanical ventilation and on spontaneous breathing trial. Cardiology started the patient on PO amiodarone. Patient is on cefepime. 12/03: patient is on mechanical ventilation. Cardiology started the patient on PO amiodarone for SVT. Patient is on cefepime, no fever overnight. 12/04: Patient is sedated and on mechanical ventilation. Patient had fever yesterday afternoon 102.3, ID changed his cefepime to meropenem. Heart rate is controlled, cardiology is following. Patient has paroxysmal atrial fibrillation and on amiodarone and metoprolol, subcu heparin for anticoagulation and will need oral anticoagulation once stable. 12/05: Sputum cultures positive for Pseudomonas, ID following 12/06; patient is febrile T-max 24 hours 102 F ,ID change antibiotics to cefepime and Vancomycin 12/07: resumed care. Na 149 today, start on 1/2 NS. cont current care 12/08: remains in a stable sinus rhythm and stable blood pressure, continue sup portive care. wean off vent as tolerated. persistent fever - ordered CTA chest 12/09: noted bloody discharges from ET tube last night. CTA and LE venous doppler positive for acute PE and DVT. resume heparin drip, consult vascular for possible EKOS/ IVC filter. monitor h/h. cont SBT trial, wean off vent as tolerated. called but no answer 12/10: cont heparin drip for acute PE and DVT, follow vascular recommendation. monitor h/h, wean off vent as tolerated 12/11: o/n had bleeding from ET tube, cont to monitor h/h. vascular recommending medical Mx. called ; Nicolle Araiza [phone]. 12/12: H&H remained stable, patient on heparin drip. Discussed with yesterday. Discussed with critical care attending. Patient not tolerating SBT trial. Continue to wean off from vent as tolerated, follow clinically. Tolerating tube feeding 12/13: Continue heparin drip, wean off from vent as tolerated. Discussed with pulmonary attending if no improvement by the end of 3 weeks of intubation patient may need trach and PEG. Continue to provide supportive care, follow CBC and BMP. 12/14: Stop cefepime today, wean off from vent as tolerated. cont Heparin infusion, while monitoring for bleeding 12/15: Patient is not tolerating SBT trial, becoming apnic on CPAP. May need to place on trach and PEG. Continue heparin drip, monitor off antibiotics 12/16. Still maintained on vent. May need PEG and trach as her has been failed SBTs 12/17. Had low UO overnight. Started on tamsulosin. May need PEG and trach - defer to pulm. 12/18-. Plan for US thoracentesis to help with weaning. Remains on heparin drip for VTE. 12/20. Discussed with spouse today. He will get thoracentesis today. INR/PTT ord ered. Heparin drip held. 12/21: planned for trach and PEG, cont supportive care Subjective Date of service: 12/22/19 Principal diagnosis: Ac hypoxemic resp failure; Pneumonia; PUI COVID-19; CHF; COPD; HTN Interval history: Patient seen and examined Patient intubated on mechanical ventilation Discussed with RN at the bedside H/H STABLE, patient remains on heparin drip Objective - Exam Narrative Exam: General appearance: Present: well-nourished, other (Intubated), opens eyes to names and follows minor command - EENT Eyes: Present: PERRL, EOM intact. Absent: scleral icterus ENT: clear oral mucosa, dentition normal - Neck Neck: Present: supple, normal ROM - Respiratory Respiratory effort: normal, mechanical ventilation Respiratory: bilateral: rales - Cardiovascular Rhythm: regular Heart Sounds: Present: S1 & S2, tachycardic. Absent: gallop, systolic murmur, diastolic murmur, rub - Extremities Extremities: no ischemia, pulses intact, pulses symmetrical, No edema, Full ROM Peripheral Pulses: within normal limits - Abdominal General gastrointestinal: Present: soft, non-tender, non-distended, normal bowel sounds. Absent: mass - Integumentary Integumentary: Present: clear, warm, dry. Absent: rash - Musculoskeletal Musculoskeletal: no joint swelling - Psychiatric Psychiatric: sedated Neurology: no focal deficits - Constitutional Vitals: Vital Signs - 12hr 12/22/19 12/22/19 12/22/19 05:30 06:00 06:03 Temperature Pulse Rate 86 94 H 91 H Respiratory 11 L 14 Rate Blood Pressure 137/66 137/66 115/69 O2 Sat by Pulse 96 97 Oximetry 12/22/19 12/22/19 12/22/19 06:30 07:00 07:30 Temperature Pulse Rate 94 H 93 H 92 H Respiratory 14 17 17 Rate Blood Pressure 115/69 110/67 115/69 O2 Sat by Pulse 97 93 90 Oximetry 12/22/19 12/22/19 12/22/19 07:46 08:00 08:30 Temperature 100.4 F H Pulse Rate 92 H 110 H 99 H Respiratory 27 H 15 Rate Blood Pressure 115/69 115/69 123/40 O2 Sat by Pulse 94 85 96 Oximetry 12/22/19 12/22/19 12/22/19 09:00 09:30 10:00 Temperature Pulse Rate 113 H 123 H 128 H Respiratory 26 H 27 H 30 H Rate Blood Pressure 123/40 175/135 171/103 O2 Sat by Pulse 90 90 94 Oximetry 12/22/19 12/22/19 12/22/19 10:30 11:00 12:00 Temperature 99.9 F H Pulse Rate 105 H 100 H 100 H Respiratory 17 14 Rate Blood Pressure 171/103 127/67 127/67 O2 Sat by Pulse 97 95 95 Oximetry 12/22/19 12/22/19 12/22/19 12:53 13:02 15:41 Temperature Pulse Rate 90 90 Respiratory 15 Rate Blood Pressure 110/70 110/70 O2 Sat by Pulse 95 Oximetry - Labs CBC & Chem 7: 12/22/19 05:10 12/22/19 05:10 Labs: Abnormal lab results 12/21/19 12/22/19 12/22/19 Range/Units 17:16 00:01 01:33 WBC (4.5-11.0) K/mm3 RBC (3.65-5.03) M/mm3 Hgb (11.8-15.2) gm/dl Hct (35.5-45.6) % RDW (13.2-15.2) % Heparin Anti-Xa Level 0.10 L (0.3-0.7) U.I./ml POC ABG pCO2 (32.0-48.0) mmHg POC ABG pO2 (83-108) mmHg ABG Hemoglobin (12.0-17.5) ABG Oxyhemoglobin (94-98) Chloride (98-107) mmol/L BUN (9-20) mg/dL Creatinine (0.8-1.3) mg/dL Glucose (75-100) mg/dL POC Glucose 167 H 179 H (70-105) 12/22/19 12/22/19 12/22/19 Range/Units 03:22 05:10 05:10 WBC 13.8 H (4.5-11.0) K/mm3 RBC 3.20 L (3.65-5.03) M/mm3 Hgb 8.9 L (11.8-15.2) gm/dl Hct 28.1 L (35.5-45.6) % RDW 15.9 H (13.2-15.2) % Heparin Anti-Xa Level (0.3-0.7) U.I./ml POC ABG pCO2 52.9 H (32.0-48.0) mmHg POC ABG pO2 52.3 L (83-108) mmHg ABG Hemoglobin 10.7 L (12.0-17.5) ABG Oxyhemoglobin 84 L (94-98) Chloride 96.6 L (98-107) mmol/L BUN 25 H (9-20) mg/dL Creatinine 0.7 L (0.8-1.3) mg/dL Glucose 129 H (75-100) mg/dL POC Glucose (70-105) 12/22/19 12/22/19 Range/Units 05:18 12:43 WBC (4.5-11.0) K/mm3 RBC (3.65-5.03) M/mm3 Hgb (11.8-15.2) gm/dl Hct (35.5-45.6) % RDW (13.2-15.2) % Heparin Anti-Xa Level 0.18 L (0.3-0.7) U.I./ml POC ABG pCO2 (32.0-48.0) mmHg POC ABG pO2 (83-108) mmHg ABG Hemoglobin (12.0-17.5) ABG Oxyhemoglobin (94-98) Chloride (98-107) mmol/L BUN (9-20) mg/dL Creatinine (0.8-1.3) mg/dL Glucose (75-100) mg/dL POC Glucose 131 H (70-105) HEART Score - HEART Score Troponin: Troponin T < 0.010 ng/mL (0.00-0.029) 11/24/19 02:53
[2019-12-22] MEDS: fentaNYL 100 MCG/2 ML INJ IV PRN ×2 (17:38→20:51)
[2019-12-22] MEDS: POLYETHYLENE GLYCOL 3350 17 GM POWDER PO SCH (21:54)
[2019-12-22] MEDS: TAMSULOSIN 0.4 MG CAP PO SCH (21:54)
--- NOTE | 2019-12-22 22:02 | XRay Report ---
ABDOMEN 1 VIEW(S) 12/22/2019 8:27 PM INDICATION: NGT placement. COMPARISON: 12/22/2019 chest . FINDINGS: The tip of the nasogastric tube projects over the gastric lumen. Previously noted scattered bilateral pulmonary opacities are stable. Signer Name: Jairon Sorto MD Signed: 12/22/2019 9:57 PM Workstation Name: [id number]
[2019-12-23] MEDS: HEPARIN/ 0.45% NACL DRIP 25,000 UNIT/500 ML BAG IV SCH ×2 (00:17→14:42)
[2019-12-23] MEDS: INSULIN LISPRO 100 UNIT/ML VIAL 3 mL SUB-Q SCH ×4 (00:21→20:09)
[2019-12-23 04:32] LABS: Hematocrit 30.3 % (35.5-45.6); Hemoglobin 9.6 gm/dl (11.8-15.2); Mean Corpuscular HGB Conc 32 % (32-34); Mean Corpuscular Volume 88 fl (84-94); Platelet Count 302 K/mm3 (140-440); Red Blood Count 3.43 M/mm3 (3.65-5.03); Red Cell Distribution Width 15.9 % (13.2-15.2)
[2019-12-23 04:54] LABS: Blood Urea Nitrogen 23 mg/dL (9-20); Calcium 9.6 mg/dL (8.4-10.2); Hemolysis Index 2
[2019-12-23 05:02] LABS: BUN/Creatinine Ratio 38
[2019-12-23] MEDS: METOPROLOL TARTRATE 50 MG TAB PO SCH ×3 (06:34→21:32)
[2019-12-23] MEDS: fentaNYL 100 MCG/2 ML INJ IV PRN ×3 (08:54→22:58)
[2019-12-23] MEDS: AMIODARONE 200 MG TAB PO SCH ×2 (09:00→21:32)
[2019-12-23] MEDS: FAMOTIDINE 20 MG TAB PO SCH ×2 (09:00→21:31)
[2019-12-23] MEDS: DOCUSATE SODIUM 100 MG/10 ML ORAL LIQD FEEDTUBE SCH ×2 (09:00→21:31)
[2019-12-23] MEDS: QUEtiapine 100 MG TAB PO SCH ×2 (09:01→21:31)
--- NOTE | 2019-12-23 10:17 | Progress Note ---
Assessment and Plan Cultures: Blood culture 12/02/2019 negative Blood culture 11/24/2019 negative Urine culture 11/24/2019 negative COVID-19 negative x2 12/04/2019 resp culture: PsA 12/06/2019 blood cultures: No growth today MRSA PCR negative A/P: 64-year-old male past medical history hypertension, COPD, CAD, CHF with reduced ejection fraction admitted with acute hypoxic respiratory failure likely secondary to pneumonia #Sepsis: With intermittent low-grade fever, likely due to PE/DVT. Completed antibiotics for pneumonia. #Acute hypoxemic respiratory failure: Likely secondary to pneumonia/PE, COVID-19 testing negative x 2. Remains intubated. #Bilateral pneumonia: COVID-19 negative twice. Culture grew Pseudomonas, pansensitive. Completed abx. Repeat chest x-ray with persistent right base opacity, concerning for possible effusion. CT showed PE. US guided thoracentesis was planned 12/21/2019 but showed minimal effusion, so not done. #CHF: per primary team #COPD: per pulmonary #PE/right DVT: on anticoagulation per primary. Recs: -recheck WBC and procalcitonin in AM -Monitor off antibiotics for now-completed 10-day cefepime course on 12/15/2019 -if febrile >101.5F, obtain blood and ET aspirate cultures Chet Saha MD, FACP [facility] ([facility]) C: [phone] O: [phone] F: [phone] Subjective Date of service: 12/23/19 Principal diagnosis: Ac hypoxemic resp failure; Pneumonia; PUI COVID-19; CHF; COPD; HTN Interval history: no fever. Remains intubated, but awake on the vent. Objective - Exam Narrative Exam: Physical Exam: Constitutional: opens eyes, intubated, on the vent Head, Ears, Nose: Normocephalic, atraumatic. External ears, nose normal Eyes: Conjunctivae/corneas clear. No icterus. No ptosis. Neck: intubated Oral: intubated Cardiovascular: S1, S2 + Respiratory: AE fair bilaterally and equal GI: Soft, bowel sounds + Musculoskeletal: No pedal edema, no cyanosis. Skin: No rash or abscess Hem/Lymphatic: No palpable cervical or supraclavicular nodes. No lymphangitis Psych: no agitation Neurological: follows basic commands, intubated, on the vent, exam limited - Constitutional Vitals: Vital Signs Temp Pulse Resp BP Pulse Ox 98.3 F 89 19 118/85 99 12/23/19 07:56 12/23/19 08:08 12/23/19 04:00 12/23/19 08:08 12/23/19 08:08 Temperature -Last 24 Hours Temperature 98.3 F Temperature 99.0 F Temperature 98.2 F Temperature 99.3 F Temperature 99.3 F Temperature 98.6 F Temperature 99.9 F - Labs CBC & Chem 7: 12/23/19 03:51 12/23/19 03:51 Labs: Abnormal lab results 12/22/19 12/22/19 12/22/19 Range/Units 12:32 12:43 17:44 WBC (4.5-11.0) K/mm3 RBC (3.65-5.03) M/mm3 Hgb (11.8-15.2) gm/dl Hct (35.5-45.6) % RDW (13.2-15.2) % Heparin Anti-Xa Level 0.18 L (0.3-0.7) U.I./ml Chloride (98-107) mmol/L Carbon Dioxide (22-30) mmol/L BUN (9-20) mg/dL Creatinine (0.8-1.3) mg/dL Glucose (75-100) mg/dL POC Glucose 208 H 209 H (70-105) 12/22/19 12/23/19 12/23/19 Range/Units 23:20 03:51 03:51 WBC 15.2 H (4.5-11.0) K/mm3 RBC 3.43 L (3.65-5.03) M/mm3 Hgb 9.6 L (11.8-15.2) gm/dl Hct 30.3 L (35.5-45.6) % RDW 15.9 H (13.2-15.2) % Heparin Anti-Xa Level (0.3-0.7) U.I./ml Chloride 97.2 L (98-107) mmol/L Carbon Dioxide 31 H (22-30) mmol/L BUN 23 H (9-20) mg/dL Creatinine 0.6 L (0.8-1.3) mg/dL Glucose 153 H (75-100) mg/dL POC Glucose 119 H (70-105) 12/23/19 Range/Units 05:31 WBC (4.5-11.0) K/mm3 RBC (3.65-5.03) M/mm3 Hgb (11.8-15.2) gm/dl Hct (35.5-45.6) % RDW (13.2-15.2) % Heparin Anti-Xa Level (0.3-0.7) U.I./ml Chloride (98-107) mmol/L Carbon Dioxide (22-30) mmol/L BUN (9-20) mg/dL Creatinine (0.8-1.3) mg/dL Glucose (75-100) mg/dL POC Glucose 149 H (70-105) - Imaging and cardiology Chest x-ray: report reviewed, image reviewed (interval worsening of bilateral airspace disease)
--- NOTE | 2019-12-23 11:09 | Progress Note ---
Assessment and Plan Transient Afib after CPAP trial currently in sinus rhythm Ischemic Cardiomyopathy, resolving re-echo this presentation reports an LVEF 40-45%. echo 08/2018: decreased LVEF 20-25%. Hx of CAD [facility] 12/2018: mild in-stent restenosis. No significant residual disease. Multifocal pneumonia with intermittent fevers negative COVID-19 test x 2 Respiratory failure Acute PE/DVT on IV heparin Recommendations: Continue amiodarone and metoprolol for suppression of paroxysmal atrial fibrillation. Otherwise, conservative cardiac management. Subjective Date of service: 12/23/19 Principal diagnosis: Ac hypoxemic resp failure; Pneumonia; PUI COVID-19; CHF; COPD; HTN Interval history: Remains intubated on the vent. Stable sinus rhythm on telemetry. Objective Vital Signs Temp Pulse Pulse Resp BP Pulse Ox 12/23/19 10:00 85 139/94 12/23/19 09:31 95 H 128/81 99 12/23/19 09:00 87 128/81 96 12/23/19 08:30 87 118/85 99 12/23/19 08:08 89 118/85 99 12/23/19 08:00 89 118/85 97 12/23/19 07:56 98.3 F 12/23/19 07:30 86 125/80 99 12/23/19 07:00 90 130/80 98 12/23/19 06:34 87 130/80 12/23/19 06:30 89 130/80 99 12/23/19 06:00 91 H 121/74 98 12/23/19 05:30 92 H 121/74 97 12/23/19 05:00 90 121/74 97 12/23/19 04:30 92 H 130/79 97 12/23/19 04:01 104 H 130/79 96 12/23/19 04:00 99.0 F 105 H 105 H 19 116/71 96 12/23/19 03:30 114 H 106/73 92 12/23/19 03:00 82 19 116/71 100 12/23/19 02:30 94 H 22 106/73 97 12/23/19 02:00 83 15 106/73 97 12/23/19 01:30 73 21 124/70 99 12/23/19 01:00 96 H 23 124/70 12/23/19 00:30 81 21 114/66 98 12/23/19 00:13 81 114/66 95 12/23/19 00:00 86 86 21 114/66 96 12/22/19 23:47 98.2 F 12/22/19 23:30 99 H 24 116/69 97 12/22/19 23:14 98 H 22 116/69 96 12/22/19 23:00 90 20 116/69 95 12/22/19 22:30 89 21 116/74 96 12/22/19 22:00 88 17 116/74 95 12/22/19 21:53 92 H 124/79 12/22/19 21:30 90 14 124/79 97 12/22/19 21:00 95 H 21 124/79 97 12/22/19 20:30 115 H 22 122/73 96 12/22/19 20:00 99.3 F 89 89 20 163/115 98 12/22/19 19:54 97 H 163/115 98 12/22/19 19:30 106 H 24 163/115 97 12/22/19 19:00 113 H 28 H 122/92 89 12/22/19 18:30 96 H 17 122/92 97 12/22/19 18:00 105 H 25 H 122/101 98 12/22/19 17:30 115 H 28 H 122/101 88 12/22/19 17:00 110 H 26 H 123/87 89 12/22/19 16:30 101 H 19 123/87 96 12/22/19 16:00 98.6 F 102 H 23 119/68 93 12/22/19 15:41 90 110/70 95 12/22/19 15:30 87 16 119/68 99 12/22/19 15:00 88 14 119/68 12/22/19 14:30 99 H 19 111/70 100 12/22/19 14:00 88 16 111/70 99 12/22/19 13:30 87 13 110/70 100 12/22/19 13:02 90 110/70 12/22/19 13:00 87 13 110/70 98 12/22/19 12:53 15 12/22/19 12:30 97 H 12 107/69 97 12/22/19 12:00 99.9 F H 91 H 15 107/69 93 12/22/19 11:30 91 H 13 127/67 97 - Physical Examination General: Other (intubated on the vent) Cardiac: Positive: Reg Rate and Rhythm - Labs and Meds CBC 12/23/19 Range/Units 03:51 WBC 15.2 H (4.5-11.0) K/mm3 RBC 3.43 L (3.65-5.03) M/mm3 Hgb 9.6 L (11.8-15.2) gm/dl Hct 30.3 L (35.5-45.6) % Plt Count 302 (140-440) K/mm3 Comprehensive Metabolic Panel 12/23/19 Range/Units 03:51 Sodium 138 (137-145) mmol/L Potassium 4.4 (3.6-5.0) mmol/L Chloride 97.2 L (98-107) mmol/L Carbon Dioxide 31 H (22-30) mmol/L BUN 23 H (9-20) mg/dL Creatinine 0.6 L (0.8-1.3) mg/dL Glucose 153 H (75-100) mg/dL Calcium 9.6 (8.4-10.2) mg/dL - Allied health notes Allied health notes reviewed: nursing
--- NOTE | 2019-12-23 12:21 | Progress Note ---
Assessment and Plan Acute hypoxemic respiratory failure Bilateral pneumonia, community acquired. Acute LLL branch P.E. Acute DVT Person under investigation for COVID-19 infection. Acute congestive heart failure exacerbation. History of cerebrovascular accident. Acute chronic obstructive pulmonary disease exacerbation. Hypertension and hypertensive urgency at presentation. History of arthritis. Leukocytosis. Lactic acidosis. Oropharyngeal dysphagia - prn CXR's - continue IV Heparin for VTE (Change to oral agent post trach & PEG) - continue Flomax dose at 0.8 mg qhs - Surgery evaluation ongoing for tracheostomy (discussed indications with his ) - No BAL studies apparently as no bronchoscopy done earlier - continue daily SAT's and SBT assessment as tolerated - continue care as below otherwise; - continue low dose seroquel - COVID isolation per facility protocol - free water for hypernatremia - continue diuresis while following electrolytes / I's & O's - continue to wean oxygen for O2 sat's > 92% - continue bronchodilators with pulmonary hygiene per RT - VAP bundle addressed (Aspiration precautions, HOB >40) - continue to wean per pulmonary driven protocols - sedation target is RASS 0 to -1 - continue prn analgesia per CPOT score - follow clinically re: fever curves / trend WBC - Avoid delirium (no benzodiazepines if they can be avoided) - Maintain sleep-wake cycle - enteral nutrition at goal rate as tolerated - continue accucheck's with glycemic control per SSI for target blood glucose goal of 140-180 mg/dL while critically ill; Avoid hypoglycemia - for VTE he is on IV Heparin - continue stress ulcer prophylaxis with Famotidine - continue mobility protocols for pressure ulcer prophylaxis - continue fall precautions - continue wound care management per RN / WCT - Supportive transfusions to keep HgB>7g/dL - CXR's and ABG's prn - Continue to monitor neurologic function - Continue chronic home medications - Continue all supportive care ........ re-evaluate in am & prn CONDITION: CRITICAL PROGNOSIS: GUARDED CODE STATUS: FULL CODE The high probability of a clinically significant, sudden or life threatening deterioration of the [Respiratory, cardiovascular & neurological] system(s) required my full and direct attention, intervention and personal management. The aggregate critical care time was [32] minutes without overlap. Time includes spent on [x] Data Review and interpretation [x] Patient assessment and monitoring of vital signs [x] Documentation [x] Medication orders and management Subjective Date of service: 12/23/19 Principal diagnosis: Ac hypoxemic resp failure; Pneumonia; PUI COVID-19; CHF; COPD; HTN Interval history: Patient is seen today for: Acute hypoxemic respiratory failure; Daan. Pneumonia (CAP); PUI COVID-19 infection; AE-CHF; AE-COPD; H/O CVA; HTN Seen and examined at bedside; 24 hour events reviewed; nursing and respiratory care staff consulted; no adverse overnight events reported to me; resting peacefully in bed; remains on MVS; AMS is persistent; still weaning tenuously; awaiting tracheostomy Objective Vital Signs - 12hr 12/23/19 12/23/19 12/23/19 00:30 01:00 01:30 Temperature Pulse Rate 81 96 H 73 Pulse Rate [ From Monitor] Respiratory 21 23 21 Rate Blood Pressure 114/66 124/70 124/70 O2 Sat by Pulse 98 99 Oximetry 12/23/19 12/23/19 12/23/19 02:00 02:30 03:00 Temperature Pulse Rate 83 94 H 82 Pulse Rate [ From Monitor] Respiratory 15 22 19 Rate Blood Pressure 106/73 106/73 116/71 O2 Sat by Pulse 97 97 100 Oximetry 12/23/19 12/23/19 12/23/19 03:30 04:00 04:01 Temperature 99.0 F Pulse Rate 114 H 105 H 104 H Pulse Rate [ 105 H From Monitor] Respiratory 19 Rate Blood Pressure 106/73 116/71 130/79 O2 Sat by Pulse 92 96 96 Oximetry 12/23/19 12/23/19 12/23/19 04:30 05:00 05:30 Temperature Pulse Rate 92 H 90 92 H Pulse Rate [ From Monitor] Respiratory Rate Blood Pressure 130/79 121/74 121/74 O2 Sat by Pulse 97 97 97 Oximetry 12/23/19 12/23/19 12/23/19 06:00 06:30 06:34 Temperature Pulse Rate 91 H 89 87 Pulse Rate [ From Monitor] Respiratory Rate Blood Pressure 121/74 130/80 130/80 O2 Sat by Pulse 98 99 Oximetry 12/23/19 12/23/19 12/23/19 07:00 07:30 07:56 Temperature 98.3 F Pulse Rate 90 86 Pulse Rate [ From Monitor] Respiratory Rate Blood Pressure 130/80 125/80 O2 Sat by Pulse 98 99 Oximetry 12/23/19 12/23/19 12/23/19 08:00 08:08 08:30 Temperature Pulse Rate 89 89 87 Pulse Rate [ From Monitor] Respiratory Rate Blood Pressure 118/85 118/85 118/85 O2 Sat by Pulse 97 99 99 Oximetry 12/23/19 12/23/19 12/23/19 09:00 09:31 10:00 Temperature Pulse Rate 87 95 H 85 Pulse Rate [ From Monitor] Respiratory Rate Blood Pressure 128/81 128/81 139/94 O2 Sat by Pulse 96 99 Oximetry 12/23/19 12/23/19 12/23/19 10:31 11:00 11:31 Temperature Pulse Rate 88 96 H 86 Pulse Rate [ From Monitor] Respiratory Rate Blood Pressure 139/94 130/103 130/103 O2 Sat by Pulse 98 97 99 Oximetry 12/23/19 12/23/19 12:00 12:01 Temperature 98.6 F Pulse Rate 103 H Pulse Rate [ From Monitor] Respiratory Rate Blood Pressure 130/103 O2 Sat by Pulse 97 Oximetry Constitutional: no acute distress, agitated, other (elderly and obese male, normocephalic with mildly increased respiratory effort at rest on MVS) Eyes: non-icteric ENT: oropharynx moist, other (ETT 24 cm JASON) Neck: supple, no JVD Effort: mildly labored Ascultation: Bilateral: diminished breath sounds, rhonchi Percussion: Bilateral: not dull Cardiovascular: irregular rhythm Gastrointestinal: normoactive bowel sounds, soft, non-tender, non-distended Integumentary: normal Extremities: no cyanosis, no edema, pulses normal, no ischemia or petechiae Neurologic: non-focal exam (moves all extremities with extreme agitation), pupils equal and round, motor strength normal and, other (sedated lightly) Psychiatric: other (unable to assess re: AMS) CBC and BMP: 12/25/19 04:18 12/26/19 00:18 ABG, PT/INR, D-dimer: ABG ABG pH 7.418 (7.320-7.450) 12/22/19 03:22 POC ABG pCO2 52.9 mmHg (32.0-48.0) H 12/22/19 03:22 ABG pCO2 48.7 mm Hg 12/19/19 09:20 POC ABG pO2 52.3 mmHg (83-108) L 12/22/19 03:22 ABG pO2 62.6 mm Hg (80.0-90.0) L 12/19/19 09:20 POC ABG HCO3 33.4 12/22/19 03:22 ABG O2 Saturation 93.8 % (95.0-99.0) L 12/19/19 09:20 PT/INR, D-dimer PT 13.8 Sec. (12.2-14.9) 12/21/19 10:13 INR 1.05 (0.87-1.13) 12/21/19 10:13 Abnormal lab findings: Abnormal Labs 11/24/19 11/24/19 11/24/19 02:53 02:53 03:45 WBC 14.3 H RBC Hgb Hct MCHC RDW 17.2 H Lymph % (Auto) [place] % (Auto) [place] # Eos # [place] # (Auto) Eos # (Auto) Seg Neutrophils % Seg Neuts % (Manual) Baso # (Auto) Lymphocytes % (Manual) Monocytes % (Manual) Eosinophils % (Manual) Basophils % (Manual) Seg Neutrophils # Seg Neutrophils # Man 8.3 H Lymphocytes # (Manual) Monocytes # (Manual) 0.9 H Eosinophils # (Manual) Nucleated RBC % Basophils # (Manual) APTT Heparin Anti-Xa Level ABG pH 7.313 L POC ABG pO2 ABG pO2 102.8 H ABG HCO3 ABG O2 Saturation ABG Base Excess -2.9 L POC ABG pCO2 ABG Hemoglobin ABG Oxyhemoglobin Oxyhemoglobin 93.9 L Sodium Potassium Chloride Carbon Dioxide BUN Creatinine Glucose 195 H POC Glucose Lactic Acid Calcium Phosphorus Magnesium AST ALT Lactate Dehydrogenase CK-MB (CK-2) 4.3 H C-Reactive Protein NT-Pro-B Natriuret Pep 1181 H Total Protein Albumin Urine WBC (Auto) 11/24/19 11/24/19 11/24/19 04:53 04:53 10:37 WBC RBC Hgb Hct MCHC RDW Lymph % (Auto) [place] % (Auto) [place] # Eos # [place] # (Auto) Eos # (Auto) Seg Neutrophils % Seg Neuts % (Manual) Baso # (Auto) Lymphocytes % (Manual) Monocytes % (Manual) Eosinophils % (Manual) Basophils % (Manual) Seg Neutrophils # Seg Neutrophils # Man Lymphocytes # (Manual) Monocytes # (Manual) Eosinophils # (Manual) Nucleated RBC % Basophils # (Manual) APTT Heparin Anti-Xa Level ABG pH POC ABG pO2 ABG pO2 ABG HCO3 ABG O2 Saturation ABG Base Excess POC ABG pCO2 ABG Hemoglobin ABG Oxyhemoglobin Oxyhemoglobin Sodium Potassium Chloride Carbon Dioxide BUN Creatinine Glucose 162 H POC Glucose Lactic Acid 2.40 H* 2.50 H* Calcium Phosphorus Magnesium AST ALT Lactate Dehydrogenase 240 H CK-MB (CK-2) C-Reactive Protein NT-Pro-B Natriuret Pep Total Protein Albumin Urine WBC (Auto) 11/24/19 11/24/19 11/24/19 12:21 14:50 19:54 WBC RBC Hgb Hct MCHC RDW Lymph % (Auto) [place] % (Auto) [place] # Eos # [place] # (Auto) Eos # (Auto) Seg Neutrophils % Seg Neuts % (Manual) Baso # (Auto) Lymphocytes % (Manual) Monocytes % (Manual) Eosinophils % (Manual) Basophils % (Manual) Seg Neutrophils # Seg Neutrophils # Man Lymphocytes # (Manual) Monocytes # (Manual) Eosinophils # (Manual) Nucleated RBC % Basophils # (Manual) APTT Heparin Anti-Xa Level ABG pH POC ABG pO2 ABG pO2 ABG HCO3 ABG O2 Saturation ABG Base Excess POC ABG pCO2 ABG Hemoglobin ABG Oxyhemoglobin Oxyhemoglobin Sodium Potassium Chloride Carbon Dioxide BUN Creatinine Glucose POC Glucose 145 H 143 H 124 H Lactic Acid Calcium Phosphorus Magnesium AST ALT Lactate Dehydrogenase CK-MB (CK-2) C-Reactive Protein NT-Pro-B Natriuret Pep Total Protein Albumin Urine WBC (Auto) 11/25/19 11/25/19 11/25/19 00:18 03:18 05:11 WBC 13.7 H RBC Hgb Hct MCHC RDW 17.1 H Lymph % (Auto) 10.[address] [place] % (Auto) 8.[address] [place] # 1.2 H Eos # [place] # (Auto) Eos # (Auto) Seg Neutrophils % 80.2 H Seg Neuts % (Manual) Baso # (Auto) Lymphocytes % (Manual) Monocytes % (Manual) Eosinophils % (Manual) Basophils % (Manual) Seg Neutrophils # 11.0 H Seg Neutrophils # Man Lymphocytes # (Manual) Monocytes # (Manual) Eosinophils # (Manual) Nucleated RBC % Basophils # (Manual) APTT Heparin Anti-Xa Level ABG pH 7.333 L POC ABG pO2 ABG pO2 61.2 L ABG HCO3 ABG O2 Saturation 90.2 L ABG Base Excess POC ABG pCO2 ABG Hemoglobin 13.7 L ABG Oxyhemoglobin Oxyhemoglobin 88.2 L Sodium Potassium Chloride Carbon Dioxide BUN Creatinine Glucose POC Glucose 109 H Lactic Acid Calcium Phosphorus Magnesium AST ALT Lactate Dehydrogenase CK-MB (CK-2) C-Reactive Protein NT-Pro-B Natriuret Pep Total Protein Albumin Urine WBC (Auto) 11/25/19 11/25/19 11/26/19 05:11 11:40 03:12 WBC RBC Hgb Hct MCHC RDW Lymph % (Auto) [place] % (Auto) [place] # Eos # [place] # (Auto) Eos # (Auto) Seg Neutrophils % Seg Neuts % (Manual) Baso # (Auto) Lymphocytes % (Manual) Monocytes % (Manual) Eosinophils % (Manual) Basophils % (Manual) Seg Neutrophils # Seg Neutrophils # Man Lymphocytes # (Manual) Monocytes # (Manual) Eosinophils # (Manual) Nucleated RBC % Basophils # (Manual) APTT Heparin Anti-Xa Level ABG pH POC ABG pO2 ABG pO2 155.1 H ABG HCO3 27.8 H ABG O2 Saturation ABG Base Excess POC ABG pCO2 ABG Hemoglobin 12.2 L ABG Oxyhemoglobin Oxyhemoglobin Sodium Potassium Chloride Carbon Dioxide BUN 23 H Creatinine Glucose 110 H POC Glucose 108 H Lactic Acid Calcium Phosphorus Magnesium AST ALT Lactate Dehydrogenase CK-MB (CK-2) C-Reactive Protein NT-Pro-B Natriuret Pep Total Protein Albumin Urine WBC (Auto) 11/26/19 11/26/19 11/26/19 06:17 10:43 10:43 WBC 11.4 H RBC Hgb Hct MCHC RDW 17.1 H Lymph % (Auto) [place] % (Auto) [place] # Eos # [place] # (Auto) Eos # (Auto) Seg Neutrophils % Seg Neuts % (Manual) Baso # (Auto) Lymphocytes % (Manual) Monocytes % (Manual) Eosinophils % (Manual) Basophils % (Manual) Seg Neutrophils # Seg Neutrophils # Man Lymphocytes # (Manual) Monocytes # (Manual) Eosinophils # (Manual) Nucleated RBC % Basophils # (Manual) APTT Heparin Anti-Xa Level ABG pH POC ABG pO2 ABG pO2 ABG HCO3 ABG O2 Saturation ABG Base Excess POC ABG pCO2 ABG Hemoglobin ABG Oxyhemoglobin Oxyhemoglobin Sodium Potassium Chloride Carbon Dioxide BUN 29 H Creatinine Glucose POC Glucose 107 H Lactic Acid Calcium Phosphorus Magnesium AST ALT Lactate Dehydrogenase CK-MB (CK-2) C-Reactive Protein NT-Pro-B Natriuret Pep Total Protein Albumin Urine WBC (Auto) 11/26/19 11/27/19 11/27/19 17:11 01:53 04:11 WBC RBC Hgb Hct MCHC RDW Lymph % (Auto) [place] % (Auto) [place] # Eos # [place] # (Auto) Eos # (Auto) Seg Neutrophils % Seg Neuts % (Manual) Baso # (Auto) Lymphocytes % (Manual) Monocytes % (Manual) Eosinophils % (Manual) Basophils % (Manual) Seg Neutrophils # Seg Neutrophils # Man Lymphocytes # (Manual) Monocytes # (Manual) Eosinophils # (Manual) Nucleated RBC % Basophils # (Manual) APTT Heparin Anti-Xa Level ABG pH POC ABG pO2 ABG pO2 ABG HCO3 29.2 H ABG O2 Saturation ABG Base Excess 3.4 H POC ABG pCO2 ABG Hemoglobin 13.3 L ABG Oxyhemoglobin Oxyhemoglobin 94.5 L Sodium Potassium Chloride Carbon Dioxide BUN Creatinine Glucose POC Glucose 113 H 108 H Lactic Acid Calcium Phosphorus Magnesium AST ALT Lactate Dehydrogenase CK-MB (CK-2) C-Reactive Protein NT-Pro-B Natriuret Pep Total Protein Albumin Urine WBC (Auto) 11/27/19 11/28/19 11/28/19 05:27 05:00 05:25 WBC RBC Hgb Hct MCHC RDW Lymph % (Auto) [place] % (Auto) [place] # Eos # [place] # (Auto) Eos # (Auto) Seg Neutrophils % Seg Neuts % (Manual) Baso # (Auto) Lymphocytes % (Manual) Monocytes % (Manual) Eosinophils % (Manual) Basophils % (Manual) Seg Neutrophils # Seg Neutrophils # Man Lymphocytes # (Manual) Monocytes # (Manual) Eosinophils # (Manual) Nucleated RBC % Basophils # (Manual) APTT Heparin Anti-Xa Level ABG pH POC ABG pO2 68.1 L ABG pO2 ABG HCO3 ABG O2 Saturation ABG Base Excess POC ABG pCO2 ABG Hemoglobin ABG Oxyhemoglobin 91.2 L Oxyhemoglobin Sodium Potassium Chloride Carbon Dioxide BUN Creatinine Glucose POC Glucose 111 H 110 H Lactic Acid Calcium Phosphorus Magnesium AST ALT Lactate Dehydrogenase CK-MB (CK-2) C-Reactive Protein NT-Pro-B Natriuret Pep Total Protein Albumin Urine WBC (Auto) 11/28/19 11/28/19 11/28/19 12:08 13:47 13:47 WBC 11.3 H RBC Hgb Hct MCHC RDW 16.1 H Lymph % (Auto) [place] % (Auto) 9.[address] [place] # 1.1 H Eos # [place] # (Auto) Eos # (Auto) Seg Neutrophils % 71.4 H Seg Neuts % (Manual) Baso # (Auto) Lymphocytes % (Manual) Monocytes % (Manual) Eosinophils % (Manual) Basophils % (Manual) Seg Neutrophils # 8.1 H Seg Neutrophils # Man Lymphocytes # (Manual) Monocytes # (Manual) Eosinophils # (Manual) Nucleated RBC % Basophils # (Manual) APTT Heparin Anti-Xa Level ABG pH POC ABG pO2 ABG pO2 ABG HCO3 ABG O2 Saturation ABG Base Excess POC ABG pCO2 ABG Hemoglobin ABG Oxyhemoglobin Oxyhemoglobin Sodium Potassium Chloride Carbon Dioxide BUN 23 H Creatinine Glucose 123 H POC Glucose 112 H Lactic Acid Calcium Phosphorus Magnesium AST ALT Lactate Dehydrogenase CK-MB (CK-2) C-Reactive Protein NT-Pro-B Natriuret Pep Total Protein Albumin 3.7 L Urine WBC (Auto) 11/28/19 11/29/19 11/29/19 17:26 03:55 17:04 WBC RBC Hgb Hct MCHC RDW Lymph % (Auto) [place] % (Auto) [place] # Eos # [place] # (Auto) Eos # (Auto) Seg Neutrophils % Seg Neuts % (Manual) Baso # (Auto) Lymphocytes % (Manual) Monocytes % (Manual) Eosinophils % (Manual) Basophils % (Manual) Seg Neutrophils # Seg Neutrophils # Man Lymphocytes # (Manual) Monocytes # (Manual) Eosinophils # (Manual) Nucleated RBC % Basophils # (Manual) APTT Heparin Anti-Xa Level ABG pH POC ABG pO2 ABG pO2 65.7 L ABG HCO3 28.3 H ABG O2 Saturation 93.9 L ABG Base Excess 3.6 H POC ABG pCO2 ABG Hemoglobin 13.3 L ABG Oxyhemoglobin Oxyhemoglobin 91.5 L Sodium Potassium Chloride Carbon Dioxide BUN Creatinine Glucose POC Glucose 123 H 119 H Lactic Acid Calcium Phosphorus Magnesium AST ALT Lactate Dehydrogenase CK-MB (CK-2) C-Reactive Protein NT-Pro-B Natriuret Pep Total Protein Albumin Urine WBC (Auto) 11/30/19 11/30/19 11/30/19 04:17 04:17 04:56 WBC 13.4 H RBC Hgb Hct MCHC RDW 15.6 H Lymph % (Auto) [place] % (Auto) [place] # Eos # [place] # (Auto) Eos # (Auto) Seg Neutrophils % Seg Neuts % (Manual) Baso # (Auto) Lymphocytes % (Manual) Monocytes % (Manual) Eosinophils % (Manual) Basophils % (Manual) Seg Neutrophils # Seg Neutrophils # Man Lymphocytes # (Manual) Monocytes # (Manual) Eosinophils # (Manual) Nucleated RBC % Basophils # (Manual) APTT Heparin Anti-Xa Level ABG pH POC ABG pO2 ABG pO2 56.3 L ABG HCO3 29.3 H ABG O2 Saturation 91.5 L ABG Base Excess 4.7 H POC ABG pCO2 ABG Hemoglobin 12.1 L ABG Oxyhemoglobin Oxyhemoglobin 89.2 L Sodium 147 H Potassium Chloride Carbon Dioxide BUN 30 H Creatinine Glucose 124 H POC Glucose Lactic Acid Calcium Phosphorus Magnesium AST ALT Lactate Dehydrogenase CK-MB (CK-2) C-Reactive Protein NT-Pro-B Natriuret Pep Total Protein Albumin 3.8 L Urine WBC (Auto) 11/30/19 11/30/19 11/30/19 05:51 11:54 18:17 WBC RBC Hgb Hct MCHC RDW Lymph % (Auto) [place] % (Auto) [place] # Eos # [place] # (Auto) Eos # (Auto) Seg Neutrophils % Seg Neuts % (Manual) Baso # (Auto) Lymphocytes % (Manual) Monocytes % (Manual) Eosinophils % (Manual) Basophils % (Manual) Seg Neutrophils # Seg Neutrophils # Man Lymphocytes # (Manual) Monocytes # (Manual) Eosinophils # (Manual) Nucleated RBC % Basophils # (Manual) APTT Heparin Anti-Xa Level ABG pH POC ABG pO2 ABG pO2 ABG HCO3 ABG O2 Saturation ABG Base Excess POC ABG pCO2 ABG Hemoglobin ABG Oxyhemoglobin Oxyhemoglobin Sodium Potassium Chloride Carbon Dioxide BUN Creatinine Glucose POC Glucose 127 H 115 H 143 H Lactic Acid Calcium Phosphorus Magnesium AST ALT Lactate Dehydrogenase CK-MB (CK-2) C-Reactive Protein NT-Pro-B Natriuret Pep Total Protein Albumin Urine WBC (Auto) 12/01/19 12/01/19 12/01/19 01:18 05:22 12:16 WBC RBC Hgb Hct MCHC RDW Lymph % (Auto) [place] % (Auto) [place] # Eos # [place] # (Auto) Eos # (Auto) Seg Neutrophils % Seg Neuts % (Manual) Baso # (Auto) Lymphocytes % (Manual) Monocytes % (Manual) Eosinophils % (Manual) Basophils % (Manual) Seg Neutrophils # Seg Neutrophils # Man Lymphocytes # (Manual) Monocytes # (Manual) Eosinophils # (Manual) Nucleated RBC % Basophils # (Manual) APTT Heparin Anti-Xa Level ABG pH POC ABG pO2 ABG pO2 ABG HCO3 ABG O2 Saturation ABG Base Excess POC ABG pCO2 ABG Hemoglobin ABG Oxyhemoglobin Oxyhemoglobin Sodium Potassium 3.5 L Chloride 107.8 H Carbon Dioxide BUN 37 H Creatinine Glucose 157 H POC Glucose 118 H 148 H Lactic Acid Calcium 8.2 L D Phosphorus Magnesium AST 48 H ALT 60 H Lactate Dehydrogenase 194 H CK-MB (CK-2) C-Reactive Protein 8.50 H NT-Pro-B Natriuret Pep Total Protein 5.5 L Albumin 2.8 L Urine WBC (Auto) 12/01/19 12/02/19 12/02/19 18:04 00:05 05:16 WBC 11.4 H RBC Hgb Hct MCHC RDW 15.9 H Lymph % (Auto) [place] % (Auto) 9.[address] [place] # 1.1 H Eos # [place] # (Auto) Eos # (Auto) Seg Neutrophils % 70.3 H Seg Neuts % (Manual) Baso # (Auto) Lymphocytes % (Manual) Monocytes % (Manual) Eosinophils % (Manual) Basophils % (Manual) Seg Neutrophils # 8.0 H Seg Neutrophils # Man Lymphocytes # (Manual) Monocytes # (Manual) Eosinophils # (Manual) Nucleated RBC % Basophils # (Manual) APTT Heparin Anti-Xa Level ABG pH POC ABG pO2 ABG pO2 ABG HCO3 ABG O2 Saturation ABG Base Excess POC ABG pCO2 ABG Hemoglobin ABG Oxyhemoglobin Oxyhemoglobin Sodium Potassium Chloride Carbon Dioxide BUN Creatinine Glucose POC Glucose 143 H 107 H Lactic Acid Calcium Phosphorus Magnesium AST ALT Lactate Dehydrogenase CK-MB (CK-2) C-Reactive Protein NT-Pro-B Natriuret Pep Total Protein Albumin Urine WBC (Auto) 12/02/19 12/02/19 12/02/19 05:16 06:03 11:52 WBC RBC Hgb Hct MCHC RDW Lymph % (Auto) [place] % (Auto) [place] # Eos # [place] # (Auto) Eos # (Auto) Seg Neutrophils % Seg Neuts % (Manual) Baso # (Auto) Lymphocytes % (Manual) Monocytes % (Manual) Eosinophils % (Manual) Basophils % (Manual) Seg Neutrophils # Seg Neutrophils # Man Lymphocytes # (Manual) Monocytes # (Manual) Eosinophils # (Manual) Nucleated RBC % Basophils # (Manual) APTT Heparin Anti-Xa Level ABG pH POC ABG pO2 ABG pO2 ABG HCO3 ABG O2 Saturation ABG Base Excess POC ABG pCO2 ABG Hemoglobin ABG Oxyhemoglobin Oxyhemoglobin Sodium 146 H Potassium Chloride Carbon Dioxide BUN 28 H Creatinine Glucose 123 H POC Glucose 110 H 152 H Lactic Acid Calcium Phosphorus Magnesium AST ALT Lactate Dehydrogenase CK-MB (CK-2) C-Reactive Protein NT-Pro-B Natriuret Pep Total Protein Albumin Urine WBC (Auto) 12/02/19 12/02/19 12/02/19 12:58 17:58 23:36 WBC RBC Hgb Hct MCHC RDW Lymph % (Auto) [place] % (Auto) [place] # Eos # [place] # (Auto) Eos # (Auto) Seg Neutrophils % Seg Neuts % (Manual) Baso # (Auto) Lymphocytes % (Manual) Monocytes % (Manual) Eosinophils % (Manual) Basophils % (Manual) Seg Neutrophils # Seg Neutrophils # Man Lymphocytes # (Manual) Monocytes # (Manual) Eosinophils # (Manual) Nucleated RBC % Basophils # (Manual) APTT Heparin Anti-Xa Level ABG pH POC ABG pO2 78.1 L ABG pO2 ABG HCO3 ABG O2 Saturation ABG Base Excess POC ABG pCO2 ABG Hemoglobin ABG Oxyhemoglobin Oxyhemoglobin Sodium Potassium Chloride Carbon Dioxide BUN Creatinine Glucose POC Glucose 120 H 123 H Lactic Acid Calcium Phosphorus Magnesium AST ALT Lactate Dehydrogenase CK-MB (CK-2) C-Reactive Protein NT-Pro-B Natriuret Pep Total Protein Albumin Urine WBC (Auto) 12/03/19 12/03/19 12/03/19 06:03 06:14 11:46 WBC RBC Hgb Hct MCHC RDW Lymph % (Auto) [place] % (Auto) [place] # Eos # [place] # (Auto) Eos # (Auto) Seg Neutrophils % Seg Neuts % (Manual) Baso # (Auto) Lymphocytes % (Manual) Monocytes % (Manual) Eosinophils % (Manual) Basophils % (Manual) Seg Neutrophils # Seg Neutrophils # Man Lymphocytes # (Manual) Monocytes # (Manual) Eosinophils # (Manual) Nucleated RBC % Basophils # (Manual) APTT Heparin Anti-Xa Level ABG pH POC ABG pO2 ABG pO2 ABG HCO3 ABG O2 Saturation ABG Base Excess POC ABG pCO2 ABG Hemoglobin ABG Oxyhemoglobin Oxyhemoglobin Sodium Potassium Chloride Carbon Dioxide BUN Creatinine Glucose POC Glucose 142 H 130 H Lactic Acid Calcium Phosphorus Magnesium AST ALT Lactate Dehydrogenase CK-MB (CK-2) C-Reactive Protein NT-Pro-B Natriuret Pep Total Protein Albumin Urine WBC (Auto) 8.0 H 12/03/19 12/03/19 12/04/19 15:50 17:39 00:04 WBC RBC Hgb Hct MCHC RDW Lymph % (Auto) [place] % (Auto) [place] # Eos # [place] # (Auto) Eos # (Auto) Seg Neutrophils % Seg Neuts % (Manual) Baso # (Auto) Lymphocytes % (Manual) Monocytes % (Manual) Eosinophils % (Manual) Basophils % (Manual) Seg Neutrophils # Seg Neutrophils # Man Lymphocytes # (Manual) Monocytes # (Manual) Eosinophils # (Manual) Nucleated RBC % Basophils # (Manual) APTT Heparin Anti-Xa Level ABG pH POC ABG pO2 ABG pO2 ABG HCO3 ABG O2 Saturation ABG Base Excess POC ABG pCO2 ABG Hemoglobin ABG Oxyhemoglobin Oxyhemoglobin Sodium Potassium Chloride Carbon Dioxide BUN Creatinine Glucose POC Glucose 146 H 133 H Lactic Acid Calcium Phosphorus 2.40 L Magnesium AST ALT Lactate Dehydrogenase CK-MB (CK-2) C-Reactive Protein NT-Pro-B Natriuret Pep Total Protein Albumin Urine WBC (Auto) 12/04/19 12/04/19 12/04/19 03:58 03:58 05:22 WBC 12.5 H RBC Hgb 11.2 L Hct 35.2 L MCHC RDW 16.0 H Lymph % (Auto) [place] % (Auto) 9.[address] [place] # 1.2 H Eos # 0.[address] [place] # (Auto) Eos # (Auto) Seg Neutrophils % Seg Neuts % (Manual) Baso # (Auto) Lymphocytes % (Manual) Monocytes % (Manual) Eosinophils % (Manual) Basophils % (Manual) Seg Neutrophils # 8.6 H Seg Neutrophils # Man Lymphocytes # (Manual) Monocytes # (Manual) Eosinophils # (Manual) Nucleated RBC % Basophils # (Manual) APTT Heparin Anti-Xa Level ABG pH POC ABG pO2 ABG pO2 ABG HCO3 ABG O2 Saturation ABG Base Excess POC ABG pCO2 ABG Hemoglobin ABG Oxyhemoglobin Oxyhemoglobin Sodium 146 H Potassium Chloride 108.6 H Carbon Dioxide BUN 30 H Creatinine 0.7 L Glucose 121 H POC Glucose 132 H Lactic Acid Calcium Phosphorus Magnesium AST ALT Lactate Dehydrogenase CK-MB (CK-2) C-Reactive Protein NT-Pro-B Natriuret Pep Total Protein Albumin Urine WBC (Auto) 12/04/19 12/04/19 12/05/19 13:26 18:43 00:19 WBC RBC Hgb Hct MCHC RDW Lymph % (Auto) [place] % (Auto) [place] # Eos # [place] # (Auto) Eos # (Auto) Seg Neutrophils % Seg Neuts % (Manual) Baso # (Auto) Lymphocytes % (Manual) Monocytes % (Manual) Eosinophils % (Manual) Basophils % (Manual) Seg Neutrophils # Seg Neutrophils # Man Lymphocytes # (Manual) Monocytes # (Manual) Eosinophils # (Manual) Nucleated RBC % Basophils # (Manual) APTT Heparin Anti-Xa Level ABG pH POC ABG pO2 ABG pO2 ABG HCO3 ABG O2 Saturation ABG Base Excess POC ABG pCO2 ABG Hemoglobin ABG Oxyhemoglobin Oxyhemoglobin Sodium Potassium Chloride Carbon Dioxide BUN Creatinine Glucose POC Glucose 185 H 156 H 150 H Lactic Acid Calcium Phosphorus Magnesium AST ALT Lactate Dehydrogenase CK-MB (CK-2) C-Reactive Protein NT-Pro-B Natriuret Pep Total Protein Albumin Urine WBC (Auto) 12/05/19 12/05/19 12/05/19 03:37 03:37 05:14 WBC 16.3 H RBC Hgb 11.4 L Hct MCHC RDW 15.6 H Lymph % (Auto) 9.[address] [place] % (Auto) 9.[address] [place] # 1.6 H Eos # [place] # (Auto) Eos # (Auto) Seg Neutrophils % 78.0 H Seg Neuts % (Manual) Baso # (Auto) Lymphocytes % (Manual) Monocytes % (Manual) Eosinophils % (Manual) Basophils % (Manual) Seg Neutrophils # 12.7 H Seg Neutrophils # Man Lymphocytes # (Manual) Monocytes # (Manual) Eosinophils # (Manual) Nucleated RBC % Basophils # (Manual) APTT Heparin Anti-Xa Level ABG pH POC ABG pO2 ABG pO2 ABG HCO3 ABG O2 Saturation ABG Base Excess POC ABG pCO2 ABG Hemoglobin ABG Oxyhemoglobin Oxyhemoglobin Sodium 146 H Potassium Chloride 107.2 H Carbon Dioxide BUN 27 H Creatinine 0.7 L Glucose 171 H POC Glucose 168 H Lactic Acid Calcium Phosphorus Magnesium AST ALT Lactate Dehydrogenase CK-MB (CK-2) C-Reactive Protein NT-Pro-B Natriuret Pep Total Protein Albumin Urine WBC (Auto) 12/05/19 12/05/19 12/05/19 12:31 18:10 23:58 WBC RBC Hgb Hct MCHC RDW Lymph % (Auto) [place] % (Auto) [place] # Eos # [place] # (Auto) Eos # (Auto) Seg Neutrophils % Seg Neuts % (Manual) Baso # (Auto) Lymphocytes % (Manual) Monocytes % (Manual) Eosinophils % (Manual) Basophils % (Manual) Seg Neutrophils # Seg Neutrophils # Man Lymphocytes # (Manual) Monocytes # (Manual) Eosinophils # (Manual) Nucleated RBC % Basophils # (Manual) APTT Heparin Anti-Xa Level ABG pH POC ABG pO2 ABG pO2 ABG HCO3 ABG O2 Saturation ABG Base Excess POC ABG pCO2 ABG Hemoglobin ABG Oxyhemoglobin Oxyhemoglobin Sodium Potassium Chloride Carbon Dioxide BUN Creatinine Glucose POC Glucose 159 H 198 H 115 H Lactic Acid Calcium Phosphorus Magnesium AST ALT Lactate Dehydrogenase CK-MB (CK-2) C-Reactive Protein NT-Pro-B Natriuret Pep Total Protein Albumin Urine WBC (Auto) 12/06/19 12/06/19 12/06/19 05:24 05:24 05:25 WBC 14.9 H RBC Hgb 10.8 L Hct 34.0 L MCHC RDW 15.6 H Lymph % (Auto) 10.[address] [place] % (Auto) 8.[address] [place] # 1.2 H Eos # [place] # (Auto) Eos # (Auto) Seg Neutrophils % 78.7 H Seg Neuts % (Manual) Baso # (Auto) Lymphocytes % (Manual) Monocytes % (Manual) Eosinophils % (Manual) Basophils % (Manual) Seg Neutrophils # 11.7 H Seg Neutrophils # Man Lymphocytes # (Manual) Monocytes # (Manual) Eosinophils # (Manual) Nucleated RBC % Basophils # (Manual) APTT Heparin Anti-Xa Level ABG pH POC ABG pO2 ABG pO2 ABG HCO3 ABG O2 Saturation ABG Base Excess POC ABG pCO2 ABG Hemoglobin ABG Oxyhemoglobin Oxyhemoglobin Sodium 148 H Potassium 5.1 H Chloride 107.6 H Carbon Dioxide BUN 27 H Creatinine 0.7 L Glucose 155 H POC Glucose 157 H Lactic Acid Calcium Phosphorus Magnesium AST ALT Lactate Dehydrogenase CK-MB (CK-2) C-Reactive Protein NT-Pro-B Natriuret Pep Total Protein Albumin Urine WBC (Auto) 12/07/19 12/07/19 12/07/19 00:13 05:34 11:33 WBC RBC Hgb Hct MCHC RDW Lymph % (Auto) [place] % (Auto) [place] # Eos # [place] # (Auto) Eos # (Auto) Seg Neutrophils % Seg Neuts % (Manual) Baso # (Auto) Lymphocytes % (Manual) Monocytes % (Manual) Eosinophils % (Manual) Basophils % (Manual) Seg Neutrophils # Seg Neutrophils # Man Lymphocytes # (Manual) Monocytes # (Manual) Eosinophils # (Manual) Nucleated RBC % Basophils # (Manual) APTT Heparin Anti-Xa Level ABG pH POC ABG pO2 ABG pO2 ABG HCO3 ABG O2 Saturation ABG Base Excess POC ABG pCO2 ABG Hemoglobin ABG Oxyhemoglobin Oxyhemoglobin Sodium Potassium Chloride Carbon Dioxide BUN Creatinine Glucose POC Glucose 142 H 111 H 169 H Lactic Acid Calcium Phosphorus Magnesium AST ALT Lactate Dehydrogenase CK-MB (CK-2) C-Reactive Protein NT-Pro-B Natriuret Pep Total Protein Albumin Urine WBC (Auto) 12/07/19 12/07/19 12/07/19 12:41 13:25 18:19 WBC 12.4 H RBC 3.53 L Hgb 10.2 L Hct 32.1 L MCHC RDW 15.3 H Lymph % (Auto) 10.[address] [place] % (Auto) 7.[address] [place] # 1.0 H Eos # [place] # (Auto) Eos # (Auto) Seg Neutrophils % 77.6 H Seg Neuts % (Manual) Baso # (Auto) Lymphocytes % (Manual) Monocytes % (Manual) Eosinophils % (Manual) Basophils % (Manual) Seg Neutrophils # 9.6 H Seg Neutrophils # Man Lymphocytes # (Manual) Monocytes # (Manual) Eosinophils # (Manual) Nucleated RBC % Basophils # (Manual) APTT Heparin Anti-Xa Level ABG pH POC ABG pO2 ABG pO2 ABG HCO3 ABG O2 Saturation ABG Base Excess POC ABG pCO2 ABG Hemoglobin ABG Oxyhemoglobin Oxyhemoglobin Sodium 149 H Potassium Chloride 108.4 H Carbon Dioxide BUN 26 H Creatinine 0.6 L Glucose 149 H POC Glucose 164 H Lactic Acid Calcium Phosphorus Magnesium 2.60 H AST 121 H ALT 145 H Lactate Dehydrogenase CK-MB (CK-2) C-Reactive Protein NT-Pro-B Natriuret Pep Total Protein Albumin 2.6 L Urine WBC (Auto) 12/07/19 12/08/19 12/08/19 22:25 00:02 03:55 WBC 13.3 H RBC 3.40 L Hgb 9.7 L Hct 30.8 L MCHC 31 L RDW 15.5 H Lymph % (Auto) [place] % (Auto) 8.[address] [place] # 1.1 H Eos # [place] # (Auto) Eos # (Auto) Seg Neutrophils % 73.0 H Seg Neuts % (Manual) Baso # (Auto) Lymphocytes % (Manual) Monocytes % (Manual) Eosinophils % (Manual) Basophils % (Manual) Seg Neutrophils # 9.7 H Seg Neutrophils # Man Lymphocytes # (Manual) Monocytes # (Manual) Eosinophils # (Manual) Nucleated RBC % Basophils # (Manual) APTT Heparin Anti-Xa Level 0.12 L ABG pH POC ABG pO2 ABG pO2 ABG HCO3 ABG O2 Saturation ABG Base Excess POC ABG pCO2 ABG Hemoglobin ABG Oxyhemoglobin Oxyhemoglobin Sodium Potassium Chloride Carbon Dioxide BUN Creatinine Glucose POC Glucose 151 H Lactic Acid Calcium Phosphorus Magnesium AST ALT Lactate Dehydrogenase CK-MB (CK-2) C-Reactive Protein NT-Pro-B Natriuret Pep Total Protein Albumin Urine WBC (Auto) 12/08/19 12/08/19 12/08/19 03:55 05:21 06:01 WBC RBC Hgb Hct MCHC RDW Lymph % (Auto) [place] % (Auto) [place] # Eos # [place] # (Auto) Eos # (Auto) Seg Neutrophils % Seg Neuts % (Manual) Baso # (Auto) Lymphocytes % (Manual) Monocytes % (Manual) Eosinophils % (Manual) Basophils % (Manual) Seg Neutrophils # Seg Neutrophils # Man Lymphocytes # (Manual) Monocytes # (Manual) Eosinophils # (Manual) Nucleated RBC % Basophils # (Manual) APTT Heparin Anti-Xa Level 0.20 L ABG pH POC ABG pO2 ABG pO2 ABG HCO3 ABG O2 Saturation ABG Base Excess POC ABG pCO2 ABG Hemoglobin ABG Oxyhemoglobin Oxyhemoglobin Sodium 149 H Potassium Chloride 108.0 H Carbon Dioxide BUN 28 H Creatinine 0.6 L Glucose 144 H POC Glucose 143 H Lactic Acid Calcium Phosphorus Magnesium AST 98 H ALT 145 H Lactate Dehydrogenase CK-MB (CK-2) C-Reactive Protein NT-Pro-B Natriuret Pep Total Protein 6.0 L Albumin 2.4 L Urine WBC (Auto) 12/08/19 12/08/19 12/08/19 12:08 18:11 23:53 WBC RBC Hgb Hct MCHC RDW Lymph % (Auto) [place] % (Auto) [place] # Eos # [place] # (Auto) Eos # (Auto) Seg Neutrophils % Seg Neuts % (Manual) Baso # (Auto) Lymphocytes % (Manual) Monocytes % (Manual) Eosinophils % (Manual) Basophils % (Manual) Seg Neutrophils # Seg Neutrophils # Man Lymphocytes # (Manual) Monocytes # (Manual) Eosinophils # (Manual) Nucleated RBC % Basophils # (Manual) APTT Heparin Anti-Xa Level ABG pH POC ABG pO2 ABG pO2 ABG HCO3 ABG O2 Saturation ABG Base Excess POC ABG pCO2 ABG Hemoglobin ABG Oxyhemoglobin Oxyhemoglobin Sodium Potassium Chloride Carbon Dioxide BUN Creatinine Glucose POC Glucose 172 H 122 H 162 H Lactic Acid Calcium Phosphorus Magnesium AST ALT Lactate Dehydrogenase CK-MB (CK-2) C-Reactive Protein NT-Pro-B Natriuret Pep Total Protein Albumin Urine WBC (Auto) 12/09/19 12/09/19 12/09/19 04:03 04:03 05:53 WBC RBC Hgb 9.1 L Hct 28.9 L MCHC RDW Lymph % (Auto) [place] % (Auto) [place] # Eos # [place] # (Auto) Eos # (Auto) Seg Neutrophils % Seg Neuts % (Manual) Baso # (Auto) Lymphocytes % (Manual) Monocytes % (Manual) Eosinophils % (Manual) Basophils % (Manual) Seg Neutrophils # Seg Neutrophils # Man Lymphocytes # (Manual) Monocytes # (Manual) Eosinophils # (Manual) Nucleated RBC % Basophils # (Manual) APTT Heparin Anti-Xa Level 0.15 L ABG pH POC ABG pO2 ABG pO2 ABG HCO3 ABG O2 Saturation ABG Base Excess POC ABG pCO2 ABG Hemoglobin ABG Oxyhemoglobin Oxyhemoglobin Sodium Potassium Chloride Carbon Dioxide BUN Creatinine Glucose POC Glucose 124 H Lactic Acid Calcium Phosphorus Magnesium AST ALT Lactate Dehydrogenase CK-MB (CK-2) C-Reactive Protein NT-Pro-B Natriuret Pep Total Protein Albumin Urine WBC (Auto) 12/09/19 12/09/19 12/10/19 09:43 12:41 00:13 WBC RBC Hgb Hct MCHC RDW Lymph % (Auto) [place] % (Auto) [place] # Eos # [place] # (Auto) Eos # (Auto) Seg Neutrophils % Seg Neuts % (Manual) Baso # (Auto) Lymphocytes % (Manual) Monocytes % (Manual) Eosinophils % (Manual) Basophils % (Manual) Seg Neutrophils # Seg Neutrophils # Man Lymphocytes # (Manual) Monocytes # (Manual) Eosinophils # (Manual) Nucleated RBC % Basophils # (Manual) APTT Heparin Anti-Xa Level ABG pH POC ABG pO2 ABG pO2 ABG HCO3 ABG O2 Saturation ABG Base Excess POC ABG pCO2 ABG Hemoglobin ABG Oxyhemoglobin Oxyhemoglobin Sodium Potassium Chloride Carbon Dioxide BUN 25 H Creatinine 0.6 L Glucose 131 H POC Glucose 109 H 120 H Lactic Acid Calcium Phosphorus Magnesium AST ALT Lactate Dehydrogenase CK-MB (CK-2) C-Reactive Protein NT-Pro-B Natriuret Pep Total Protein Albumin Urine WBC (Auto) 12/10/19 12/10/19 12/10/19 04:14 04:14 12:00 WBC 13.3 H RBC 3.34 L Hgb 9.6 L Hct 30.4 L MCHC RDW 15.4 H Lymph % (Auto) [place] % (Auto) [place] # Eos # [place] # (Auto) Eos # (Auto) Seg Neutrophils % Seg Neuts % (Manual) 75.0 H Baso # (Auto) Lymphocytes % (Manual) 13.0 L Monocytes % (Manual) 8.0 H Eosinophils % (Manual) Basophils % (Manual) 2.0 H Seg Neutrophils # Seg Neutrophils # Man 10.0 H Lymphocytes # (Manual) Monocytes # (Manual) 1.1 H Eosinophils # (Manual) Nucleated RBC % Basophils # (Manual) 0.3 H APTT Heparin Anti-Xa Level ABG pH POC ABG pO2 ABG pO2 ABG HCO3 ABG O2 Saturation ABG Base Excess POC ABG pCO2 ABG Hemoglobin ABG Oxyhemoglobin Oxyhemoglobin Sodium 147 H Potassium Chloride 108.3 H Carbon Dioxide BUN 21 H Creatinine 0.6 L Glucose 104 H POC Glucose 133 H Lactic Acid Calcium Phosphorus Magnesium AST ALT Lactate Dehydrogenase CK-MB (CK-2) C-Reactive Protein NT-Pro-B Natriuret Pep Total Protein Albumin Urine WBC (Auto) 12/10/19 12/10/19 12/11/19 18:44 21:20 00:08 WBC 14.9 H RBC 3.36 L Hgb 9.6 L Hct 30.5 L MCHC RDW 15.4 H Lymph % (Auto) [place] % (Auto) [place] # Eos # [place] # (Auto) Eos # (Auto) Seg Neutrophils % Seg Neuts % (Manual) Baso # (Auto) Lymphocytes % (Manual) Monocytes % (Manual) Eosinophils % (Manual) Basophils % (Manual) Seg Neutrophils # Seg Neutrophils # Man Lymphocytes # (Manual) Monocytes # (Manual) Eosinophils # (Manual) Nucleated RBC % Basophils # (Manual) APTT Heparin Anti-Xa Level ABG pH POC ABG pO2 ABG pO2 ABG HCO3 ABG O2 Saturation ABG Base Excess POC ABG pCO2 ABG Hemoglobin ABG Oxyhemoglobin Oxyhemoglobin Sodium Potassium Chloride Carbon Dioxide BUN Creatinine Glucose POC Glucose 119 H 134 H Lactic Acid Calcium Phosphorus Magnesium AST ALT Lactate Dehydrogenase CK-MB (CK-2) C-Reactive Protein NT-Pro-B Natriuret Pep Total Protein Albumin Urine WBC (Auto) 12/11/19 12/11/19 12/11/19 03:54 07:28 08:36 WBC 11.9 H RBC 3.25 L Hgb 9.6 L Hct 29.2 L MCHC RDW 15.7 H Lymph % (Auto) [place] % (Auto) [place] # Eos # [place] # (Auto) Eos # (Auto) Seg Neutrophils % Seg Neuts % (Manual) Baso # (Auto) Lymphocytes % (Manual) Monocytes % (Manual) Eosinophils % (Manual) Basophils % (Manual) Seg Neutrophils # Seg Neutrophils # Man Lymphocytes # (Manual) Monocytes # (Manual) Eosinophils # (Manual) Nucleated RBC % Basophils # (Manual) APTT Heparin Anti-Xa Level 0.10 L 0.16 L ABG pH POC ABG pO2 ABG pO2 ABG HCO3 ABG O2 Saturation ABG Base Excess POC ABG pCO2 ABG Hemoglobin ABG Oxyhemoglobin Oxyhemoglobin Sodium Potassium Chloride Carbon Dioxide BUN Creatinine Glucose POC Glucose Lactic Acid Calcium Phosphorus Magnesium AST ALT Lactate Dehydrogenase CK-MB (CK-2) C-Reactive Protein NT-Pro-B Natriuret Pep Total Protein Albumin Urine WBC (Auto) 12/11/19 12/11/19 12/11/19 08:36 11:45 17:15 WBC RBC Hgb Hct MCHC RDW Lymph % (Auto) [place] % (Auto) [place] # Eos # [place] # (Auto) Eos # (Auto) Seg Neutrophils % Seg Neuts % (Manual) Baso # (Auto) Lymphocytes % (Manual) Monocytes % (Manual) Eosinophils % (Manual) Basophils % (Manual) Seg Neutrophils # Seg Neutrophils # Man Lymphocytes # (Manual) Monocytes # (Manual) Eosinophils # (Manual) Nucleated RBC % Basophils # (Manual) APTT Heparin Anti-Xa Level ABG pH POC ABG pO2 ABG pO2 ABG HCO3 ABG O2 Saturation ABG Base Excess POC ABG pCO2 ABG Hemoglobin ABG Oxyhemoglobin Oxyhemoglobin Sodium Potassium Chloride Carbon Dioxide BUN Creatinine 0.5 L Glucose 128 H POC Glucose 136 H 109 H Lactic Acid Calcium Phosphorus Magnesium AST ALT Lactate Dehydrogenase CK-MB (CK-2) C-Reactive Protein NT-Pro-B Natriuret Pep Total Protein Albumin Urine WBC (Auto) 12/12/19 12/12/19 12/12/19 00:03 05:53 05:53 WBC RBC Hgb 8.8 L Hct 27.6 L MCHC RDW Lymph % (Auto) [place] % (Auto) [place] # Eos # [place] # (Auto) Eos # (Auto) Seg Neutrophils % Seg Neuts % (Manual) Baso # (Auto) Lymphocytes % (Manual) Monocytes % (Manual) Eosinophils % (Manual) Basophils % (Manual) Seg Neutrophils # Seg Neutrophils # Man Lymphocytes # (Manual) Monocytes # (Manual) Eosinophils # (Manual) Nucleated RBC % Basophils # (Manual) APTT Heparin Anti-Xa Level 0.22 L ABG pH POC ABG pO2 ABG pO2 ABG HCO3 ABG O2 Saturation ABG Base Excess POC ABG pCO2 ABG Hemoglobin ABG Oxyhemoglobin Oxyhemoglobin Sodium Potassium Chloride Carbon Dioxide BUN Creatinine Glucose POC Glucose 116 H Lactic Acid Calcium Phosphorus Magnesium AST ALT Lactate Dehydrogenase CK-MB (CK-2) C-Reactive Protein NT-Pro-B Natriuret Pep Total Protein Albumin Urine WBC (Auto) 12/12/19 12/12/19 12/12/19 09:38 12:18 17:44 WBC RBC Hgb Hct MCHC RDW Lymph % (Auto) [place] % (Auto) [place] # Eos # [place] # (Auto) Eos # (Auto) Seg Neutrophils % Seg Neuts % (Manual) Baso # (Auto) Lymphocytes % (Manual) Monocytes % (Manual) Eosinophils % (Manual) Basophils % (Manual) Seg Neutrophils # Seg Neutrophils # Man Lymphocytes # (Manual) Monocytes # (Manual) Eosinophils # (Manual) Nucleated RBC % Basophils # (Manual) APTT Heparin Anti-Xa Level ABG pH POC ABG pO2 ABG pO2 ABG HCO3 ABG O2 Saturation ABG Base Excess POC ABG pCO2 ABG Hemoglobin ABG Oxyhemoglobin Oxyhemoglobin Sodium Potassium Chloride Carbon Dioxide BUN Creatinine Glucose POC Glucose 115 H 146 H 146 H Lactic Acid Calcium Phosphorus Magnesium AST ALT Lactate Dehydrogenase CK-MB (CK-2) C-Reactive Protein NT-Pro-B Natriuret Pep Total Protein Albumin Urine WBC (Auto) 12/12/19 12/13/19 12/13/19 23:33 05:32 05:32 WBC 13.1 H RBC 3.27 L Hgb 9.5 L Hct 29.3 L MCHC RDW 15.6 H Lymph % (Auto) [place] % (Auto) [place] # Eos # [place] # (Auto) Eos # (Auto) Seg Neutrophils % Seg Neuts % (Manual) 74.0 H Baso # (Auto) Lymphocytes % (Manual) 8.0 L Monocytes % (Manual) 9.0 H Eosinophils % (Manual) 5.0 H Basophils % (Manual) Seg Neutrophils # Seg Neutrophils # Man 9.7 H Lymphocytes # (Manual) 1.0 L Monocytes # (Manual) 1.2 H Eosinophils # (Manual) 0.7 H Nucleated RBC % Basophils # (Manual) APTT Heparin Anti-Xa Level 0.20 L ABG pH POC ABG pO2 ABG pO2 ABG HCO3 ABG O2 Saturation ABG Base Excess POC ABG pCO2 ABG Hemoglobin ABG Oxyhemoglobin Oxyhemoglobin Sodium Potassium Chloride Carbon Dioxide BUN Creatinine Glucose POC Glucose 126 H Lactic Acid Calcium Phosphorus Magnesium AST ALT Lactate Dehydrogenase CK-MB (CK-2) C-Reactive Protein NT-Pro-B Natriuret Pep Total Protein Albumin Urine WBC (Auto) 12/13/19 12/13/19 12/13/19 05:32 05:46 11:57 WBC RBC Hgb Hct MCHC RDW Lymph % (Auto) [place] % (Auto) [place] # Eos # [place] # (Auto) Eos # (Auto) Seg Neutrophils % Seg Neuts % (Manual) Baso # (Auto) Lymphocytes % (Manual) Monocytes % (Manual) Eosinophils % (Manual) Basophils % (Manual) Seg Neutrophils # Seg Neutrophils # Man Lymphocytes # (Manual) Monocytes # (Manual) Eosinophils # (Manual) Nucleated RBC % Basophils # (Manual) APTT Heparin Anti-Xa Level ABG pH POC ABG pO2 ABG pO2 ABG HCO3 ABG O2 Saturation ABG Base Excess POC ABG pCO2 ABG Hemoglobin ABG Oxyhemoglobin Oxyhemoglobin Sodium Potassium Chloride Carbon Dioxide 31 H BUN Creatinine 0.6 L Glucose 114 H POC Glucose 118 H 133 H Lactic Acid Calcium Phosphorus Magnesium AST ALT Lactate Dehydrogenase CK-MB (CK-2) C-Reactive Protein NT-Pro-B Natriuret Pep Total Protein Albumin Urine WBC (Auto) 12/13/19 12/13/19 12/14/19 17:44 23:46 05:32 WBC RBC Hgb Hct MCHC RDW Lymph % (Auto) [place] % (Auto) [place] # Eos # [place] # (Auto) Eos # (Auto) Seg Neutrophils % Seg Neuts % (Manual) Baso # (Auto) Lymphocytes % (Manual) Monocytes % (Manual) Eosinophils % (Manual) Basophils % (Manual) Seg Neutrophils # Seg Neutrophils # Man Lymphocytes # (Manual) Monocytes # (Manual) Eosinophils # (Manual) Nucleated RBC % Basophils # (Manual) APTT Heparin Anti-Xa Level ABG pH POC ABG pO2 ABG pO2 ABG HCO3 ABG O2 Saturation ABG Base Excess POC ABG pCO2 ABG Hemoglobin ABG Oxyhemoglobin Oxyhemoglobin Sodium Potassium Chloride Carbon Dioxide BUN Creatinine Glucose POC Glucose 161 H 126 H 139 H Lactic Acid Calcium Phosphorus Magnesium AST ALT Lactate Dehydrogenase CK-MB (CK-2) C-Reactive Protein NT-Pro-B Natriuret Pep Total Protein Albumin Urine WBC (Auto) 12/14/19 12/14/19 12/14/19 06:03 06:03 09:37 WBC RBC Hgb 9.6 L Hct 30.4 L MCHC RDW Lymph % (Auto) [place] % (Auto) [place] # Eos # [place] # (Auto) Eos # (Auto) Seg Neutrophils % Seg Neuts % (Manual) Baso # (Auto) Lymphocytes % (Manual) Monocytes % (Manual) Eosinophils % (Manual) Basophils % (Manual) Seg Neutrophils # Seg Neutrophils # Man Lymphocytes # (Manual) Monocytes # (Manual) Eosinophils # (Manual) Nucleated RBC % Basophils # (Manual) APTT Heparin Anti-Xa Level 0.24 L ABG pH POC ABG pO2 ABG pO2 ABG HCO3 ABG O2 Saturation ABG Base Excess POC ABG pCO2 ABG Hemoglobin ABG Oxyhemoglobin Oxyhemoglobin Sodium Potassium Chloride Carbon Dioxide BUN Creatinine 0.6 L Glucose 162 H POC Glucose Lactic Acid Calcium Phosphorus Magnesium AST 71 H ALT 118 H Lactate Dehydrogenase CK-MB (CK-2) C-Reactive Protein NT-Pro-B Natriuret Pep Total Protein 6.2 L Albumin 2.3 L Urine WBC (Auto) 12/14/19 12/14/19 12/15/19 12:06 18:18 00:19 WBC RBC Hgb Hct MCHC RDW Lymph % (Auto) [place] % (Auto) [place] # Eos # [place] # (Auto) Eos # (Auto) Seg Neutrophils % Seg Neuts % (Manual) Baso # (Auto) Lymphocytes % (Manual) Monocytes % (Manual) Eosinophils % (Manual) Basophils % (Manual) Seg Neutrophils # Seg Neutrophils # Man Lymphocytes # (Manual) Monocytes # (Manual) Eosinophils # (Manual) Nucleated RBC % Basophils # (Manual) APTT Heparin Anti-Xa Level ABG pH POC ABG pO2 ABG pO2 ABG HCO3 ABG O2 Saturation ABG Base Excess POC ABG pCO2 ABG Hemoglobin ABG Oxyhemoglobin Oxyhemoglobin Sodium Potassium Chloride Carbon Dioxide BUN Creatinine Glucose POC Glucose 147 H 166 H 123 H Lactic Acid Calcium Phosphorus Magnesium AST ALT Lactate Dehydrogenase CK-MB (CK-2) C-Reactive Protein NT-Pro-B Natriuret Pep Total Protein Albumin Urine WBC (Auto) 12/15/19 12/15/19 12/15/19 05:28 05:29 05:29 WBC 14.9 H RBC 3.19 L Hgb 9.1 L Hct 28.7 L MCHC RDW 16.0 H Lymph % (Auto) [place] % (Auto) [place] # Eos # [place] # (Auto) Eos # (Auto) Seg Neutrophils % Seg Neuts % (Manual) Baso # (Auto) Lymphocytes % (Manual) Monocytes % (Manual) Eosinophils % (Manual) Basophils % (Manual) Seg Neutrophils # Seg Neutrophils # Man Lymphocytes # (Manual) Monocytes # (Manual) Eosinophils # (Manual) Nucleated RBC % Basophils # (Manual) APTT Heparin Anti-Xa Level 0.19 L ABG pH POC ABG pO2 ABG pO2 ABG HCO3 ABG O2 Saturation ABG Base Excess POC ABG pCO2 ABG Hemoglobin ABG Oxyhemoglobin Oxyhemoglobin Sodium Potassium Chloride Carbon Dioxide BUN Creatinine 0.6 L Glucose 110 H POC Glucose Lactic Acid Calcium Phosphorus Magnesium AST ALT Lactate Dehydrogenase CK-MB (CK-2) C-Reactive Protein NT-Pro-B Natriuret Pep Total Protein Albumin Urine WBC (Auto) 12/15/19 12/15/19 12/15/19 05:53 11:50 17:26 WBC RBC Hgb Hct MCHC RDW Lymph % (Auto) [place] % (Auto) [place] # Eos # [place] # (Auto) Eos # (Auto) Seg Neutrophils % Seg Neuts % (Manual) Baso # (Auto) Lymphocytes % (Manual) Monocytes % (Manual) Eosinophils % (Manual) Basophils % (Manual) Seg Neutrophils # Seg Neutrophils # Man Lymphocytes # (Manual) Monocytes # (Manual) Eosinophils # (Manual) Nucleated RBC % Basophils # (Manual) APTT Heparin Anti-Xa Level ABG pH POC ABG pO2 ABG pO2 ABG HCO3 ABG O2 Saturation ABG Base Excess POC ABG pCO2 ABG Hemoglobin ABG Oxyhemoglobin Oxyhemoglobin Sodium Potassium Chloride Carbon Dioxide BUN Creatinine Glucose POC Glucose 119 H 132 H 128 H Lactic Acid Calcium Phosphorus Magnesium AST ALT Lactate Dehydrogenase CK-MB (CK-2) C-Reactive Protein NT-Pro-B Natriuret Pep Total Protein Albumin Urine WBC (Auto) 12/15/19 12/16/19 12/16/19 23:11 05:30 05:46 WBC RBC Hgb 8.8 L Hct 27.9 L MCHC RDW Lymph % (Auto) [place] % (Auto) [place] # Eos # [place] # (Auto) Eos # (Auto) Seg Neutrophils % Seg Neuts % (Manual) Baso # (Auto) Lymphocytes % (Manual) Monocytes % (Manual) Eosinophils % (Manual) Basophils % (Manual) Seg Neutrophils # Seg Neutrophils # Man Lymphocytes # (Manual) Monocytes # (Manual) Eosinophils # (Manual) Nucleated RBC % Basophils # (Manual) APTT Heparin Anti-Xa Level ABG pH POC ABG pO2 ABG pO2 ABG HCO3 ABG O2 Saturation ABG Base Excess POC ABG pCO2 ABG Hemoglobin ABG Oxyhemoglobin Oxyhemoglobin Sodium Potassium Chloride Carbon Dioxide BUN Creatinine Glucose POC Glucose 150 H 134 H Lactic Acid Calcium Phosphorus Magnesium AST ALT Lactate Dehydrogenase CK-MB (CK-2) C-Reactive Protein NT-Pro-B Natriuret Pep Total Protein Albumin Urine WBC (Auto) 12/16/19 12/16/19 12/16/19 05:46 05:46 11:44 WBC RBC Hgb Hct MCHC RDW Lymph % (Auto) [place] % (Auto) [place] # Eos # [place] # (Auto) Eos # (Auto) Seg Neutrophils % Seg Neuts % (Manual) Baso # (Auto) Lymphocytes % (Manual) Monocytes % (Manual) Eosinophils % (Manual) Basophils % (Manual) Seg Neutrophils # Seg Neutrophils # Man Lymphocytes # (Manual) Monocytes # (Manual) Eosinophils # (Manual) Nucleated RBC % Basophils # (Manual) APTT Heparin Anti-Xa Level 0.20 L ABG pH POC ABG pO2 ABG pO2 ABG HCO3 ABG O2 Saturation ABG Base Excess POC ABG pCO2 ABG Hemoglobin ABG Oxyhemoglobin Oxyhemoglobin Sodium Potassium Chloride Carbon Dioxide 31 H BUN Creatinine 0.5 L Glucose 147 H POC Glucose 164 H Lactic Acid Calcium Phosphorus Magnesium AST ALT Lactate Dehydrogenase CK-MB (CK-2) C-Reactive Protein NT-Pro-B Natriuret Pep Total Protein Albumin Urine WBC (Auto) 12/16/19 12/16/19 12/17/19 17:17 23:49 05:30 WBC 13.9 H RBC 3.27 L Hgb 9.4 L Hct 29.2 L MCHC RDW 16.0 H Lymph % (Auto) [place] % (Auto) 8.[address] [place] # Eos # [place] # (Auto) 1.2 H Eos # (Auto) 0.5 H Seg Neutrophils % 70.5 H Seg Neuts % (Manual) Baso # (Auto) 0.2 H Lymphocytes % (Manual) Monocytes % (Manual) Eosinophils % (Manual) Basophils % (Manual) Seg Neutrophils # 9.8 H Seg Neutrophils # Man Lymphocytes # (Manual) Monocytes # (Manual) Eosinophils # (Manual) Nucleated RBC % Basophils # (Manual) APTT Heparin Anti-Xa Level ABG pH POC ABG pO2 ABG pO2 ABG HCO3 ABG O2 Saturation ABG Base Excess POC ABG pCO2 ABG Hemoglobin ABG Oxyhemoglobin Oxyhemoglobin Sodium Potassium Chloride Carbon Dioxide BUN Creatinine Glucose POC Glucose 162 H 144 H Lactic Acid Calcium Phosphorus Magnesium AST ALT Lactate Dehydrogenase CK-MB (CK-2) C-Reactive Protein NT-Pro-B Natriuret Pep Total Protein Albumin Urine WBC (Auto) 12/17/19 12/17/19 12/17/19 05:30 06:06 11:50 WBC RBC Hgb Hct MCHC RDW Lymph % (Auto) [place] % (Auto) [place] # Eos # [place] # (Auto) Eos # (Auto) Seg Neutrophils % Seg Neuts % (Manual) Baso # (Auto) Lymphocytes % (Manual) Monocytes % (Manual) Eosinophils % (Manual) Basophils % (Manual) Seg Neutrophils # Seg Neutrophils # Man Lymphocytes # (Manual) Monocytes # (Manual) Eosinophils # (Manual) Nucleated RBC % Basophils # (Manual) APTT Heparin Anti-Xa Level ABG pH POC ABG pO2 ABG pO2 ABG HCO3 ABG O2 Saturation ABG Base Excess POC ABG pCO2 ABG Hemoglobin ABG Oxyhemoglobin Oxyhemoglobin Sodium Potassium Chloride 97.4 L Carbon Dioxide 32 H BUN Creatinine 0.5 L Glucose 135 H POC Glucose 151 H 140 H Lactic Acid Calcium Phosphorus Magnesium AST ALT Lactate Dehydrogenase CK-MB (CK-2) C-Reactive Protein NT-Pro-B Natriuret Pep Total Protein Albumin Urine WBC (Auto) 12/17/19 12/17/19 12/18/19 17:50 23:46 05:17 WBC RBC Hgb 8.8 L Hct 28.0 L MCHC RDW Lymph % (Auto) [place] % (Auto) [place] # Eos # [place] # (Auto) Eos # (Auto) Seg Neutrophils % Seg Neuts % (Manual) Baso # (Auto) Lymphocytes % (Manual) Monocytes % (Manual) Eosinophils % (Manual) Basophils % (Manual) Seg Neutrophils # Seg Neutrophils # Man Lymphocytes # (Manual) Monocytes # (Manual) Eosinophils # (Manual) Nucleated RBC % Basophils # (Manual) APTT Heparin Anti-Xa Level ABG pH POC ABG pO2 ABG pO2 ABG HCO3 ABG O2 Saturation ABG Base Excess POC ABG pCO2 ABG Hemoglobin ABG Oxyhemoglobin Oxyhemoglobin Sodium Potassium Chloride Carbon Dioxide BUN Creatinine Glucose POC Glucose 158 H 150 H Lactic Acid Calcium Phosphorus Magnesium AST ALT Lactate Dehydrogenase CK-MB (CK-2) C-Reactive Protein NT-Pro-B Natriuret Pep Total Protein Albumin Urine WBC (Auto) 12/18/19 12/18/19 12/18/19 05:17 05:49 11:12 WBC RBC Hgb Hct MCHC RDW Lymph % (Auto) [place] % (Auto) [place] # Eos # [place] # (Auto) Eos # (Auto) Seg Neutrophils % Seg Neuts % (Manual) Baso # (Auto) Lymphocytes % (Manual) Monocytes % (Manual) Eosinophils % (Manual) Basophils % (Manual) Seg Neutrophils # Seg Neutrophils # Man Lymphocytes # (Manual) Monocytes # (Manual) Eosinophils # (Manual) Nucleated RBC % Basophils # (Manual) APTT Heparin Anti-Xa Level 0.16 L ABG pH POC ABG pO2 ABG pO2 ABG HCO3 ABG O2 Saturation ABG Base Excess POC ABG pCO2 ABG Hemoglobin ABG Oxyhemoglobin Oxyhemoglobin Sodium Potassium Chloride Carbon Dioxide BUN Creatinine Glucose POC Glucose 127 H 191 H Lactic Acid Calcium Phosphorus Magnesium AST ALT Lactate Dehydrogenase CK-MB (CK-2) C-Reactive Protein NT-Pro-B Natriuret Pep Total Protein Albumin Urine WBC (Auto) 12/18/19 12/18/19 12/19/19 17:03 20:16 00:08 WBC RBC Hgb Hct MCHC RDW Lymph % (Auto) [place] % (Auto) [place] # Eos # [place] # (Auto) Eos # (Auto) Seg Neutrophils % Seg Neuts % (Manual) Baso # (Auto) Lymphocytes % (Manual) Monocytes % (Manual) Eosinophils % (Manual) Basophils % (Manual) Seg Neutrophils # Seg Neutrophils # Man Lymphocytes # (Manual) Monocytes # (Manual) Eosinophils # (Manual) Nucleated RBC % Basophils # (Manual) APTT Heparin Anti-Xa Level ABG pH POC ABG pO2 ABG pO2 ABG HCO3 ABG O2 Saturation ABG Base Excess POC ABG pCO2 ABG Hemoglobin ABG Oxyhemoglobin Oxyhemoglobin Sodium Potassium Chloride Carbon Dioxide BUN Creatinine Glucose POC Glucose 133 H 128 H 129 H Lactic Acid Calcium Phosphorus Magnesium AST ALT Lactate Dehydrogenase CK-MB (CK-2) C-Reactive Protein NT-Pro-B Natriuret Pep Total Protein Albumin Urine WBC (Auto) 12/19/19 12/19/19 12/19/19 04:45 04:45 05:35 WBC RBC Hgb Hct MCHC RDW Lymph % (Auto) [place] % (Auto) [place] # Eos # [place] # (Auto) Eos # (Auto) Seg Neutrophils % Seg Neuts % (Manual) Baso # (Auto) Lymphocytes % (Manual) Monocytes % (Manual) Eosinophils % (Manual) Basophils % (Manual) Seg Neutrophils # Seg Neutrophils # Man Lymphocytes # (Manual) Monocytes # (Manual) Eosinophils # (Manual) Nucleated RBC % Basophils # (Manual) APTT Heparin Anti-Xa Level 0.17 L ABG pH POC ABG pO2 ABG pO2 ABG HCO3 ABG O2 Saturation ABG Base Excess POC ABG pCO2 ABG Hemoglobin ABG Oxyhemoglobin Oxyhemoglobin Sodium Potassium Chloride Carbon Dioxide BUN Creatinine Glucose POC Glucose 120 H Lactic Acid Calcium Phosphorus Magnesium AST ALT Lactate Dehydrogenase 228 H CK-MB (CK-2) C-Reactive Protein NT-Pro-B Natriuret Pep Total Protein Albumin Urine WBC (Auto) 12/19/19 12/19/19 12/19/19 09:20 11:32 11:32 WBC 14.6 H RBC 3.08 L Hgb 9.0 L Hct 26.8 L MCHC RDW 15.9 H Lymph % (Auto) [place] % (Auto) [place] # Eos # [place] # (Auto) Eos # (Auto) Seg Neutrophils % Seg Neuts % (Manual) 82.0 H Baso # (Auto) Lymphocytes % (Manual) 10.0 L Monocytes % (Manual) Eosinophils % (Manual) Basophils % (Manual) Seg Neutrophils # Seg Neutrophils # Man 12.0 H Lymphocytes # (Manual) Monocytes # (Manual) 0.9 H Eosinophils # (Manual) Nucleated RBC % 1.0 H Basophils # (Manual) APTT Heparin Anti-Xa Level ABG pH 7.451 H POC ABG pO2 ABG pO2 62.6 L ABG HCO3 33.2 H ABG O2 Saturation 93.8 L ABG Base Excess 8.3 H POC ABG pCO2 ABG Hemoglobin 8.3 L ABG Oxyhemoglobin Oxyhemoglobin 91.9 L Sodium Potassium Chloride 95.0 L Carbon Dioxide 33 H BUN 22 H Creatinine 0.6 L Glucose 150 H POC Glucose Lactic Acid Calcium Phosphorus Magnesium AST ALT Lactate Dehydrogenase CK-MB (CK-2) C-Reactive Protein NT-Pro-B Natriuret Pep Total Protein 6.2 L Albumin 2.4 L Urine WBC (Auto) 09/26/20 09/26/20 09/27/20 11:56 18:17 00:09 WBC RBC Hgb Hct MCHC RDW Lymph % (Auto) [place] % (Auto) [place] # Eos # [place] # (Auto) Eos # (Auto) Seg Neutrophils % Seg Neuts % (Manual) Baso # (Auto) Lymphocytes % (Manual) Monocytes % (Manual) Eosinophils % (Manual) Basophils % (Manual) Seg Neutrophils # Seg Neutrophils # Man Lymphocytes # (Manual) Monocytes # (Manual) Eosinophils # (Manual) Nucleated RBC % Basophils # (Manual) APTT Heparin Anti-Xa Level ABG pH POC ABG pO2 ABG pO2 ABG HCO3 ABG O2 Saturation ABG Base Excess POC ABG pCO2 ABG Hemoglobin ABG Oxyhemoglobin Oxyhemoglobin Sodium Potassium Chloride Carbon Dioxide BUN Creatinine Glucose POC Glucose 156 H 156 H 155 H Lactic Acid Calcium Phosphorus Magnesium AST ALT Lactate Dehydrogenase CK-MB (CK-2) C-Reactive Protein NT-Pro-B Natriuret Pep Total Protein Albumin Urine WBC (Auto) 12/20/19 12/20/19 12/20/19 05:26 06:02 18:17 WBC RBC Hgb Hct MCHC RDW Lymph % (Auto) [place] % (Auto) [place] # Eos # [place] # (Auto) Eos # (Auto) Seg Neutrophils % Seg Neuts % (Manual) Baso # (Auto) Lymphocytes % (Manual) Monocytes % (Manual) Eosinophils % (Manual) Basophils % (Manual) Seg Neutrophils # Seg Neutrophils # Man Lymphocytes # (Manual) Monocytes # (Manual) Eosinophils # (Manual) Nucleated RBC % Basophils # (Manual) APTT Heparin Anti-Xa Level 0.19 L ABG pH POC ABG pO2 ABG pO2 ABG HCO3 ABG O2 Saturation ABG Base Excess POC ABG pCO2 ABG Hemoglobin ABG Oxyhemoglobin Oxyhemoglobin Sodium Potassium Chloride Carbon Dioxide BUN Creatinine Glucose POC Glucose 137 H 128 H Lactic Acid Calcium Phosphorus Magnesium AST ALT Lactate Dehydrogenase CK-MB (CK-2) C-Reactive Protein NT-Pro-B Natriuret Pep Total Protein Albumin Urine WBC (Auto) 12/20/19 12/21/19 12/21/19 23:34 05:31 05:31 WBC 12.7 H RBC 3.09 L Hgb 8.9 L Hct 27.4 L MCHC RDW 15.8 H Lymph % (Auto) 12.[address] [place] % (Auto) 7.[address] [place] # Eos # [place] # (Auto) 1.0 H Eos # (Auto) Seg Neutrophils % 77.1 H Seg Neuts % (Manual) Baso # (Auto) Lymphocytes % (Manual) Monocytes % (Manual) Eosinophils % (Manual) Basophils % (Manual) Seg Neutrophils # 9.8 H Seg Neutrophils # Man Lymphocytes # (Manual) Monocytes # (Manual) Eosinophils # (Manual) Nucleated RBC % Basophils # (Manual) APTT Heparin Anti-Xa Level ABG pH POC ABG pO2 ABG pO2 ABG HCO3 ABG O2 Saturation ABG Base Excess POC ABG pCO2 ABG Hemoglobin ABG Oxyhemoglobin Oxyhemoglobin Sodium Potassium Chloride 96.9 L Carbon Dioxide 37 H BUN 27 H Creatinine 0.7 L Glucose 140 H POC Glucose 145 H Lactic Acid Calcium Phosphorus Magnesium AST ALT Lactate Dehydrogenase CK-MB (CK-2) C-Reactive Protein NT-Pro-B Natriuret Pep Total Protein Albumin Urine WBC (Auto) 12/21/19 12/21/19 12/21/19 05:38 10:13 11:51 WBC RBC Hgb Hct MCHC RDW Lymph % (Auto) [place] % (Auto) [place] # Eos # [place] # (Auto) Eos # (Auto) Seg Neutrophils % Seg Neuts % (Manual) Baso # (Auto) Lymphocytes % (Manual) Monocytes % (Manual) Eosinophils % (Manual) Basophils % (Manual) Seg Neutrophils # Seg Neutrophils # Man Lymphocytes # (Manual) Monocytes # (Manual) Eosinophils # (Manual) Nucleated RBC % Basophils # (Manual) APTT 23.9 L Heparin Anti-Xa Level < 0.10 L ABG pH POC ABG pO2 ABG pO2 ABG HCO3 ABG O2 Saturation ABG Base Excess POC ABG pCO2 ABG Hemoglobin ABG Oxyhemoglobin Oxyhemoglobin Sodium Potassium Chloride Carbon Dioxide BUN Creatinine Glucose POC Glucose 151 H 145 H Lactic Acid Calcium Phosphorus Magnesium AST ALT Lactate Dehydrogenase CK-MB (CK-2) C-Reactive Protein NT-Pro-B Natriuret Pep Total Protein Albumin Urine WBC (Auto) 12/21/19 12/22/19 12/22/19 17:16 00:01 01:33 WBC RBC Hgb Hct MCHC RDW Lymph % (Auto) [place] % (Auto) [place] # Eos # [place] # (Auto) Eos # (Auto) Seg Neutrophils % Seg Neuts % (Manual) Baso # (Auto) Lymphocytes % (Manual) Monocytes % (Manual) Eosinophils % (Manual) Basophils % (Manual) Seg Neutrophils # Seg Neutrophils # Man Lymphocytes # (Manual) Monocytes # (Manual) Eosinophils # (Manual) Nucleated RBC % Basophils # (Manual) APTT Heparin Anti-Xa Level 0.10 L ABG pH POC ABG pO2 ABG pO2 ABG HCO3 ABG O2 Saturation ABG Base Excess POC ABG pCO2 ABG Hemoglobin ABG Oxyhemoglobin Oxyhemoglobin Sodium Potassium Chloride Carbon Dioxide BUN Creatinine Glucose POC Glucose 167 H 179 H Lactic Acid Calcium Phosphorus Magnesium AST ALT Lactate Dehydrogenase CK-MB (CK-2) C-Reactive Protein NT-Pro-B Natriuret Pep Total Protein Albumin Urine WBC (Auto) 12/22/19 12/22/19 12/22/19 03:22 05:10 05:10 WBC 13.8 H RBC 3.20 L Hgb 8.9 L Hct 28.1 L MCHC RDW 15.9 H Lymph % (Auto) [place] % (Auto) [place] # Eos # [place] # (Auto) Eos # (Auto) Seg Neutrophils % Seg Neuts % (Manual) Baso # (Auto) Lymphocytes % (Manual) Monocytes % (Manual) Eosinophils % (Manual) Basophils % (Manual) Seg Neutrophils # Seg Neutrophils # Man Lymphocytes # (Manual) Monocytes # (Manual) Eosinophils # (Manual) Nucleated RBC % Basophils # (Manual) APTT Heparin Anti-Xa Level ABG pH POC ABG pO2 52.3 L ABG pO2 ABG HCO3 ABG O2 Saturation ABG Base Excess POC ABG pCO2 52.9 H ABG Hemoglobin 10.7 L ABG Oxyhemoglobin 84 L Oxyhemoglobin Sodium Potassium Chloride 96.6 L Carbon Dioxide BUN 25 H Creatinine 0.7 L Glucose 129 H POC Glucose Lactic Acid Calcium Phosphorus Magnesium AST ALT Lactate Dehydrogenase CK-MB (CK-2) C-Reactive Protein NT-Pro-B Natriuret Pep Total Protein Albumin Urine WBC (Auto) 12/22/19 12/22/19 12/22/19 05:18 12:32 12:43 WBC RBC Hgb Hct MCHC RDW Lymph % (Auto) [place] % (Auto) [place] # Eos # [place] # (Auto) Eos # (Auto) Seg Neutrophils % Seg Neuts % (Manual) Baso # (Auto) Lymphocytes % (Manual) Monocytes % (Manual) Eosinophils % (Manual) Basophils % (Manual) Seg Neutrophils # Seg Neutrophils # Man Lymphocytes # (Manual) Monocytes # (Manual) Eosinophils # (Manual) Nucleated RBC % Basophils # (Manual) APTT Heparin Anti-Xa Level 0.18 L ABG pH POC ABG pO2 ABG pO2 ABG HCO3 ABG O2 Saturation ABG Base Excess POC ABG pCO2 ABG Hemoglobin ABG Oxyhemoglobin Oxyhemoglobin Sodium Potassium Chloride Carbon Dioxide BUN Creatinine Glucose POC Glucose 131 H 208 H Lactic Acid Calcium Phosphorus Magnesium AST ALT Lactate Dehydrogenase CK-MB (CK-2) C-Reactive Protein NT-Pro-B Natriuret Pep Total Protein Albumin Urine WBC (Auto) 12/22/19 12/22/19 12/23/19 17:44 23:20 03:51 WBC 15.2 H RBC 3.43 L Hgb 9.6 L Hct 30.3 L MCHC RDW 15.9 H Lymph % (Auto) [place] % (Auto) [place] # Eos # [place] # (Auto) Eos # (Auto) Seg Neutrophils % Seg Neuts % (Manual) Baso # (Auto) Lymphocytes % (Manual) Monocytes % (Manual) Eosinophils % (Manual) Basophils % (Manual) Seg Neutrophils # Seg Neutrophils # Man Lymphocytes # (Manual) Monocytes # (Manual) Eosinophils # (Manual) Nucleated RBC % Basophils # (Manual) APTT Heparin Anti-Xa Level ABG pH POC ABG pO2 ABG pO2 ABG HCO3 ABG O2 Saturation ABG Base Excess POC ABG pCO2 ABG Hemoglobin ABG Oxyhemoglobin Oxyhemoglobin Sodium Potassium Chloride Carbon Dioxide BUN Creatinine Glucose POC Glucose 209 H 119 H Lactic Acid Calcium Phosphorus Magnesium AST ALT Lactate Dehydrogenase CK-MB (CK-2) C-Reactive Protein NT-Pro-B Natriuret Pep Total Protein Albumin Urine WBC (Auto) 12/23/19 12/23/19 03:51 05:31 WBC RBC Hgb Hct MCHC RDW Lymph % (Auto) [place] % (Auto) [place] # Eos # [place] # (Auto) Eos # (Auto) Seg Neutrophils % Seg Neuts % (Manual) Baso # (Auto) Lymphocytes % (Manual) Monocytes % (Manual) Eosinophils % (Manual) Basophils % (Manual) Seg Neutrophils # Seg Neutrophils # Man Lymphocytes # (Manual) Monocytes # (Manual) Eosinophils # (Manual) Nucleated RBC % Basophils # (Manual) APTT Heparin Anti-Xa Level ABG pH POC ABG pO2 ABG pO2 ABG HCO3 ABG O2 Saturation ABG Base Excess POC ABG pCO2 ABG Hemoglobin ABG Oxyhemoglobin Oxyhemoglobin Sodium Potassium Chloride 97.2 L Carbon Dioxide 31 H BUN 23 H Creatinine 0.6 L Glucose 153 H POC Glucose 149 H Lactic Acid Calcium Phosphorus Magnesium AST ALT Lactate Dehydrogenase CK-MB (CK-2) C-Reactive Protein NT-Pro-B Natriuret Pep Total Protein Albumin Urine WBC (Auto) Chest x-ray: image reviewed (some improvement in RLL atelectasis) Allied health notes reviewed: nursing
--- NOTE | 2019-12-23 15:47 | Progress Note ---
Assessment and Plan -Acute LLL PE -Acute RLE DVT -Persistent fevers; secondary to sepsis and acute PE/DVT -Severe sepsis; secondary to bilateral pneumonia, persistent fevers -Acute hypoxemic respiratory failure, on vent unable to wean -Bilateral pneumonia, community acquired, -Aspiration Pneumonia -Sustained SVT, on amiodarone -Acute on chronic systolic congestive heart failure -History of cerebrovascular accident. -Tobacco use disorder -Alcohol abuse with DT -Acute chronic obstructive pulmonary disease exacerbation. -Hypertension and hypertensive urgency at presentation. -History of arthritis. -Paroxysmal atrial fibrillation -Leukocytosis with possible sepsis. -Lactic acidosis. -Bleeding from ET tube -Oropharyngeal dysphagia -S/P Knee surgery -History of peptic Ulcer Surgery -DVT prophylaxis COVID-19 test; 11/24/2019; negative 11/26/2019; negative Plan Continue ventilatory support Wean as tolerated as per critical care Completed abx, ID following Aspiration precautions Continue amiodarone and metoprolol for suppression of paroxysmal atrial fibrillation. Anticoagulation currently with intravenous heparin. thoracentesis cancelled as not much fluid to drawn May need trach and PEG DVT/GI prophy Heparin/Protonix Plan of care reviewed with the patient's nurse Closely monitor the patient and adjust management as needed The high probability of a clinically significant, sudden or life threatening deterioration of the [Respiratory, cardiovascular & neurological] system(s) required my full and direct attention, intervention and personal management. The aggregate critical care time was [33] minutes without overlap. Time includes spent on [x] Data Review and interpretation [x] Patient assessment and monitoring of vital signs [x] Documentation [x] Medication orders and management Brief History Patient is a 64-year-old male with known history of hypertension, COPD, history of coronary artery disease, CHF with ejection fraction of 20 to 25% in August 2018 presenting to the emergency room via EMS complaining of shortness of breath. Patient was found to be hypoxic and in respiratory distress. Patient was placed on CPAP in route to the hospital. Oxygen saturation was said to be 88%. Started on Solu-Medrol, Lasix and magnesium in ED, patient was also found to be lethargic with an oxygen saturation of about 91% on CPAP. He was subsequently intubated. Work-up in the emergency room including chest x-ray reveals bilateral pneumonia. He had an elevated white count of 14 and also had an elevated BNP. Patient to be admitted to the ICU and placed on empiric IV antibiotics for pneumonia. He will also be tested positive for COVID-19 and placed on isolation precautions. Rmains intubated on ventilatory support, sputum cultures positive for Pseudomonas, ID changed antibiotics to cefepime and Vanco. 11/25: Leukocytosis improving. Continue current management anticipate extubation possible today. 11/26. Still intubated. Failed SBT yesterday. Repeat COVID-19 test is negative. 11/27. CT head ordered for possible neuro status change is negative. More responsive as the day progressed as per RN. Chest xray today shows interval improvement. He is still on antibiotics - will complete regimen today. 11/28: Considering difficult extubation and severe cardiomyopathy, will obtain cardiology consult. Aspiration precautions, tube feeds held, continue antibiotics. 11/29: Still with intermittent fever but improving imaging, continue diuresis. 11/30; Extremely agitated when placed on PSV- SVT, hypertension. Patiet acknowledged that he drinks. IV Ativan given, CIWA protocol initiated. 12 lead ordered showed SVT, one dose of amiodarone ordered. continue to follow up cardiology recommendation 12/01: Patient remains on mechanical ventilation, getting SBT trial. Remains in SVT, started on amiodarone drip by cardiology. 12/02; patient is on mechanical ventilation and on spontaneous breathing trial. Cardiology started the patient on PO amiodarone. Patient is on cefepime. 12/03: patient is on mechanical ventilation. Cardiology started the patient on PO amiodarone for SVT. Patient is on cefepime, no fever overnight. 12/04: Patient is sedated and on mechanical ventilation. Patient had fever yesterday afternoon 102.3, ID changed his cefepime to meropenem. Heart rate is controlled, cardiology is following. Patient has paroxysmal atrial fibrillation and on amiodarone and metoprolol, subcu heparin for anticoagulation and will need oral anticoagulation once stable. 12/05: Sputum cultures positive for Pseudomonas, ID following 12/06; patient is febrile T-max 24 hours 102 F ,ID change antibiotics to cefepime and Vancomycin 12/07: resumed care. Na 149 today, start on 1/2 NS. cont current care 12/08: remains in a stable sinus rhythm and stable blood pressure, continue supportive care. wean off vent as tolerated. persistent fever - ordered CTA chest 12/09: noted bloody discharges from ET tube last night. CTA and LE venous doppler positive for acute PE and DVT. resume heparin drip, consult vascular for possible EKOS/ IVC filter. monitor h/h. cont SBT trial, wean off vent as tolerated. called but no answer 12/10: cont heparin drip for acute PE and DVT, follow vascular recommendation. monitor h/h, wean off vent as tolerated 12/11: o/n had bleeding from ET tube, cont to monitor h/h. vascular recommending medical Mx. called ; Nicolle Araiza [phone]. 12/12: H&H remained stable, patient on heparin drip. Discussed with yesterday. Discussed with critical care attending. Patient not tolerating SBT trial. Continue to wean off from vent as tolerated, follow clinically. Tolerating tube feeding 12/13: Continue heparin drip, wean off from vent as tolerated. Discussed with pulmonary attending if no improvement by the end of 3 weeks of intubation patient may need trach and PEG. Continue to provide supportive care, follow CBC and BMP. 12/14: Stop cefepime today, wean off from vent as tolerated. cont Heparin infusio n, while monitoring for bleeding 12/15: Patient is not tolerating SBT trial, becoming apnic on CPAP. May need to place on trach and PEG. Continue heparin drip, monitor off antibiotics 12/16. Still maintained on vent. May need PEG and trach as her has been failed SBTs 12/17. Had low UO overnight. Started on tamsulosin. May need PEG and trach - defer to pulm. 12/18-. Plan for US thoracentesis to help with weaning. Remains on heparin drip for VTE. 12/20. Discussed with spouse today. He will get thoracentesis today. INR/PTT ordered. Heparin drip held. 12/21: planned for trach and PEG, cont supportive care, thoracentesis cancelled 12/22: cont supportive care, wean off from vent, daily SBT Subjective Date of service: 12/23/19 Principal diagnosis: Ac hypoxemic resp failure; Pneumonia; PUI COVID-19; CHF; COPD; HTN Interval history: Patient seen and examined Patient intubated on mechanical ventilation Discussed with RN at the bedside H/H STABLE, patient remains on heparin drip Objective - Exam Narrative Exam: General appearance: Present: well-nourished, other (Intubated), opens eyes to names and follows minor command - EENT Eyes: Present: PERRL, EOM intact. Absent: scleral icterus ENT: clear oral mucosa, dentition normal - Neck Neck: Present: supple, normal ROM - Respiratory Respiratory effort: normal, mechanical ventilation Respiratory: bilateral: rales - Cardiovascular Rhythm: regular Heart Sounds: Present: S1 & S2, tachycardic. Absent: gallop, systolic murmur, diastolic murmur, rub - Extremities Extremities: no ischemia, pulses intact, pulses symmetrical, No edema, Full ROM Peripheral Pulses: within normal limits - Abdominal General gastrointestinal: Present: soft, non-tender, non-distended, normal bowel sounds. Absent: mass - Integumentary Integumentary: Present: clear, warm, dry. Absent: rash - Musculoskeletal Musculoskeletal: no joint swelling - Psychiatric Psychiatric: sedated Neurology: no focal deficits - Constitutional Vitals: Vital Signs - 12hr 12/23/19 12/23/19 12/23/19 04:00 04:01 04:30 Temperature 99.0 F Pulse Rate 105 H 104 H 92 H Pulse Rate [ 105 H From Monitor] Respiratory 19 Rate Blood Pressure 116/71 130/79 130/79 O2 Sat by Pulse 96 96 97 Oximetry 12/23/19 12/23/19 12/23/19 05:00 05:30 06:00 Temperature Pulse Rate 90 92 H 91 H Pulse Rate [ From Monitor] Respiratory Rate Blood Pressure 121/74 121/74 121/74 O2 Sat by Pulse 97 97 98 Oximetry 12/23/19 12/23/19 12/23/19 06:30 06:34 07:00 Temperature Pulse Rate 89 87 90 Pulse Rate [ From Monitor] Respiratory Rate Blood Pressure 130/80 130/80 130/80 O2 Sat by Pulse 99 98 Oximetry 12/23/19 12/23/19 12/23/19 07:30 07:56 08:00 Temperature 98.3 F Pulse Rate 86 89 Pulse Rate [ From Monitor] Respiratory Rate Blood Pressure 125/80 118/85 O2 Sat by Pulse 99 97 Oximetry 12/23/19 12/23/19 12/23/19 08:08 08:30 09:00 Temperature Pulse Rate 89 87 87 Pulse Rate [ From Monitor] Respiratory Rate Blood Pressure 118/85 118/85 128/81 O2 Sat by Pulse 99 99 96 Oximetry 12/23/19 12/23/19 12/23/19 09:31 10:00 10:31 Temperature Pulse Rate 95 H 85 88 Pulse Rate [ From Monitor] Respiratory Rate Blood Pressure 128/81 139/94 139/94 O2 Sat by Pulse 99 98 Oximetry 12/23/19 12/23/19 12/23/19 11:00 11:31 12:00 Temperature 98.6 F Pulse Rate 96 H 86 Pulse Rate [ From Monitor] Respiratory Rate Blood Pressure 130/103 130/103 O2 Sat by Pulse 97 99 Oximetry 12/23/19 12/23/19 12/23/19 12:01 12:25 12:31 Temperature Pulse Rate 103 H 100 H 102 H Pulse Rate [ From Monitor] Respiratory Rate Blood Pressure 130/103 111/77 111/77 O2 Sat by Pulse 97 99 97 Oximetry 12/23/19 12/23/19 12/23/19 13:00 13:31 14:00 Temperature Pulse Rate 84 87 86 Pulse Rate [ From Monitor] Respiratory Rate Blood Pressure 130/83 130/83 137/92 O2 Sat by Pulse 93 98 98 Oximetry 12/23/19 12/23/19 12/23/19 14:31 14:41 15:00 Temperature Pulse Rate 80 86 91 H Pulse Rate [ From Monitor] Respiratory Rate Blood Pressure 130/83 137/92 129/105 O2 Sat by Pulse 99 97 Oximetry - Labs CBC & Chem 7: 12/23/19 03:51 12/23/19 03:51 Labs: Abnormal lab results 12/22/19 12/22/19 12/22/19 Range/Units 12:32 17:44 23:20 WBC (4.5-11.0) K/mm3 RBC (3.65-5.03) M/mm3 Hgb (11.8-15.2) gm/dl Hct (35.5-45.6) % RDW (13.2-15.2) % Chloride (98-107) mmol/L Carbon Dioxide (22-30) mmol/L BUN (9-20) mg/dL Creatinine (0.8-1.3) mg/dL Glucose (75-100) mg/dL POC Glucose 208 H 209 H 119 H (70-105) 12/23/19 12/23/1920 Range/Units 03:51 03:51 05:31 WBC 15.2 H (4.5-11.0) K/mm3 RBC 3.43 L (3.65-5.03) M/mm3 Hgb 9.6 L (11.8-15.2) gm/dl Hct 30.3 L (35.5-45.6) % RDW 15.9 H (13.2-15.2) % Chloride 97.2 L (98-107) mmol/L Carbon Dioxide 31 H (22-30) mmol/L BUN 23 H (9-20) mg/dL Creatinine 0.6 L (0.8-1.3) mg/dL Glucose 153 H (75-100) mg/dL POC Glucose 149 H (70-105) HEART Score - HEART Score Troponin: Troponin T < 0.010 ng/mL (0.00-0.029) 11/24/19 02:53
[2019-12-23] MEDS: POLYETHYLENE GLYCOL 3350 17 GM POWDER PO SCH (21:31)
[2019-12-23] MEDS: TAMSULOSIN 0.4 MG CAP PO SCH (21:32)
[2019-12-24] MEDS: LORazepam 2 MG/ML VIAL IV PRN ×2 (01:32→22:52)
[2019-12-24] MEDS: INSULIN LISPRO 100 UNIT/ML VIAL 3 mL SUB-Q SCH ×4 (01:33→18:37)
[2019-12-24] MEDS: fentaNYL 100 MCG/2 ML INJ IV PRN ×2 (04:39→22:52)
[2019-12-24] MEDS: HEPARIN/ 0.45% NACL DRIP 25,000 UNIT/500 ML BAG IV SCH ×2 (04:40→18:15)
[2019-12-24] MEDS: METOPROLOL TARTRATE 50 MG TAB PO SCH ×3 (05:56→22:27)
[2019-12-24] MEDS: FAMOTIDINE 20 MG TAB PO SCH ×2 (10:16→22:27)
[2019-12-24] MEDS: DOCUSATE SODIUM 100 MG/10 ML ORAL LIQD FEEDTUBE SCH ×2 (10:16→21:56)
[2019-12-24] MEDS: AMIODARONE 200 MG TAB PO SCH ×2 (10:17→22:27)
--- NOTE | 2019-12-24 11:00 | Progress Note ---
Assessment and Plan Acute hypoxemic respiratory failure Bilateral pneumonia, community acquired. Acute congestive heart failure exacerbation. History of cerebrovascular accident. Acute chronic obstructive pulmonary disease exacerbation. Hypertension and hypertensive urgency at presentation. History of arthritis. Oropharyngeal dysphagia Right Lext DVT Pulmonary embolism Heparin infusion, while monitoring for bleeding SBTs as tolerated Bowel regimen Monitor off antibiotics, trend WCC and temperature curve If not liberated from MVS in by the end of the week, will need trach/PEG placement Gentle diuretics as tolerated by renal function and hemodynamics - continue to monitor renal function, hemodynamics and electrolyte profile - continue to wean oxygen for O2 sats > 90% - continue bronchodilators with pulmonary hygiene per RT - VAP bundle addressed (Aspiration precautions, HOB >40) - continue to wean per pulmonary driven protocols - continue prn analgesia per CPOT score - follow clinically re: fever curves / trend WBC - Avoid delirium (no benzodiazepines if they can be avoided) - Enteral nutrition at goal rate as tolerated - continue accuchecks with glycemic control per SSI for target blood glucose goal of 140-180 mg/dL while critically ill; Avoid hypoglycemia - continue VTE prophylaxis with Heparin therapeutic dosing for PE/DVT - continue stress ulcer prophylaxis with Famotidine BID - continue mobility protocols for pressure ulcer prophylaxis - continue fall precautions - continue wound care management per RN / WCT - Supportive transfusions as indicated to keep HgB>7g/dL - Continue to monitor neurologic function - Continue chronic home medications as clinically indicated - Continue all supportive care CONDITION: CRITICAL PROGNOSIS: GUARDED CODE STATUS: FULL CODE The high probability of a clinically significant, sudden or life threatening deterioration of the [Respiratory, cardiovascular & neurological] system(s) required my full and direct attention, intervention and personal management. The aggregate critical care time was [33] minutes without overlap. Time includes spent on [x] Data Review and interpretation [x] Patient assessment and monitoring of vital signs [x] Documentation [x] Medication orders and management Subjective Date of service: 12/24/19 Principal diagnosis: Ac hypoxemic resp failure; Pneumonia; PUI COVID-19; CHF; COPD; HTN Interval history: Patient is seen today for: Acute hypoxemic respiratory failure; Adan. Pneumonia (CAP); PUI COVID-19 infection; AE-CHF; AE-COPD; H/O CVA; HTN; PE, DVT Seen and examined at bedside; 24 hour events reviewed; nursing and respiratory care staff consulted; no adverse overnight events reported to me; resting p eacefully in bed; ETT in place. No asynchrony, No episodes of vomiting s/p Cefepime Vent 500/12/8/40%. Toleraed 3 hours of PSV today- but became tachycardic and tachypnic Objective Vital Signs - 12hr 12/23/19 12/23/19 12/23/19 23:01 23:12 23:31 Temperature Pulse Rate 100 H 91 H 76 Pulse Rate [ From Monitor] Respiratory Rate Blood Pressure 119/83 127/105 127/105 O2 Sat by Pulse 94 97 98 Oximetry 12/24/19 12/24/19 12/24/19 00:00 00:31 01:01 Temperature 98.8 F Pulse Rate 95 H 93 H 110 H Pulse Rate [ 91 H From Monitor] Respiratory Rate Blood Pressure 93/75 107/72 107/72 O2 Sat by Pulse 93 97 94 Oximetry 12/24/19 12/24/19 12/24/19 01:31 02:00 02:31 Temperature Pulse Rate 112 H 85 74 Pulse Rate [ From Monitor] Respiratory Rate Blood Pressure 93/75 95/74 95/74 O2 Sat by Pulse 91 92 94 Oximetry 12/24/19 12/24/19 12/24/19 03:00 03:31 04:00 Temperature 98.9 F Pulse Rate 76 79 82 Pulse Rate [ 91 H From Monitor] Respiratory Rate Blood Pressure 98/71 98/71 110/76 O2 Sat by Pulse 97 97 97 Oximetry 12/24/19 12/24/19 12/24/19 04:12 04:31 05:00 Temperature Pulse Rate 78 92 H 84 Pulse Rate [ From Monitor] Respiratory Rate Blood Pressure 110/76 110/76 105/73 O2 Sat by Pulse 97 98 93 Oximetry 12/24/19 12/24/19 12/24/19 05:31 06:00 06:31 Temperature Pulse Rate 78 77 84 Pulse Rate [ From Monitor] Respiratory Rate Blood Pressure 105/73 89/63 89/63 O2 Sat by Pulse 95 96 Oximetry 12/24/19 12/24/19 12/24/19 07:00 07:31 08:00 Temperature 97.6 F Pulse Rate 82 84 82 Pulse Rate [ 83 From Monitor] Respiratory Rate Blood Pressure 89/71 95/68 O2 Sat by Pulse 97 98 96 Oximetry 12/24/19 12/24/19 12/24/19 08:10 08:31 09:00 Temperature Pulse Rate 87 93 H 82 Pulse Rate [ From Monitor] Respiratory 23 Rate Blood Pressure 95/68 95/68 93/69 O2 Sat by Pulse 98 95 92 Oximetry Constitutional: no acute distress, agitated, other (elderly and obese male, normocephalic with mildly increased respiratory effort at rest on MVS) Eyes: non-icteric ENT: oropharynx moist, other (ETT 24 cm JASON) Neck: supple, no JVD Effort: mildly labored Ascultation: Bilateral: clear, diminished breath sounds (bases R>L), rhonchi Percussion: Bilateral: not dull Cardiovascular: irregular rhythm Gastrointestinal: normoactive bowel sounds, soft, non-tender, non-distended Integumentary: normal Extremities: no cyanosis, pulses normal, no ischemia or petechiae, edema (bila teral upper ) Neurologic: non-focal exam (moves all extremities with extreme agitation), pupils equal and round, motor strength normal and, other (sedated lightly) Psychiatric: other (unable to assess re: AMS) CBC and BMP: 12/25/19 04:18 12/25/19 04:18 ABG, PT/INR, D-dimer: ABG ABG pH 7.418 (7.320-7.450) 12/22/19 03:22 POC ABG pCO2 52.9 mmHg (32.0-48.0) H 12/22/19 03:22 ABG pCO2 48.7 mm Hg 12/19/19 09:20 POC ABG pO2 52.3 mmHg (83-108) L 12/22/19 03:22 ABG pO2 62.6 mm Hg (80.0-90.0) L 12/19/19 09:20 POC ABG HCO3 33.4 12/22/19 03:22 ABG O2 Saturation 93.8 % (95.0-99.0) L 12/19/19 09:20 PT/INR, D-dimer PT 13.8 Sec. (12.2-14.9) 12/21/19 10:13 INR 1.05 (0.87-1.13) 12/21/19 10:13 Abnormal lab findings: Abnormal Labs 11/24/19 11/24/19 11/24/19 02:53 02:53 03:45 WBC 14.3 H RBC Hgb Hct MCHC RDW 17.2 H Lymph % (Auto) [place] % (Auto) [place] # Eos # [place] # (Auto) Eos # (Auto) Seg Neutrophils % Seg Neuts % (Manual) Baso # (Auto) Lymphocytes % (Manual) Monocytes % (Manual) Eosinophils % (Manual) Basophils % (Manual) Seg Neutrophils # Seg Neutrophils # Man 8.3 H Lymphocytes # (Manual) Monocytes # (Manual) 0.9 H Eosinophils # (Manual) Nucleated RBC % Basophils # (Manual) APTT Heparin Anti-Xa Level ABG pH 7.313 L POC ABG pO2 ABG pO2 102.8 H ABG HCO3 ABG O2 Saturation ABG Base Excess -2.9 L POC ABG pCO2 ABG Hemoglobin ABG Oxyhemoglobin Oxyhemoglobin 93.9 L Sodium Potassium Chloride Carbon Dioxide BUN Creatinine Glucose 195 H POC Glucose Lactic Acid Calcium Phosphorus Magnesium AST ALT Lactate Dehydrogenase CK-MB (CK-2) 4.3 H C-Reactive Protein NT-Pro-B Natriuret Pep 1181 H Total Protein Albumin Urine WBC (Auto) 11/24/19 11/24/19 11/24/19 04:53 04:53 10:37 WBC RBC Hgb Hct MCHC RDW Lymph % (Auto) [place] % (Auto) [place] # Eos # [place] # (Auto) Eos # (Auto) Seg Neutrophils % Seg Neuts % (Manual) Baso # (Auto) Lymphocytes % (Manual) Monocytes % (Manual) Eosinophils % (Manual) Basophils % (Manual) Seg Neutrophils # Seg Neutrophils # Man Lymphocytes # (Manual) Monocytes # (Manual) Eosinophils # (Manual) Nucleated RBC % Basophils # (Manual) APTT Heparin Anti-Xa Level ABG pH POC ABG pO2 ABG pO2 ABG HCO3 ABG O2 Saturation ABG Base Excess POC ABG pCO2 ABG Hemoglobin ABG Oxyhemoglobin Oxyhemoglobin Sodium Potassium Chloride Carbon Dioxide BUN Creatinine Glucose 162 H POC Glucose Lactic Acid 2.40 H* 2.50 H* Calcium Phosphorus Magnesium AST ALT Lactate Dehydrogenase 240 H CK-MB (CK-2) C-Reactive Protein NT-Pro-B Natriuret Pep Total Protein Albumin Urine WBC (Auto) 11/24/19 11/24/19 11/24/19 12:21 14:50 19:54 WBC RBC Hgb Hct MCHC RDW Lymph % (Auto) [place] % (Auto) [place] # Eos # [place] # (Auto) Eos # (Auto) Seg Neutrophils % Seg Neuts % (Manual) Baso # (Auto) Lymphocytes % (Manual) Monocytes % (Manual) Eosinophils % (Manual) Basophils % (Manual) Seg Neutrophils # Seg Neutrophils # Man Lymphocytes # (Manual) Monocytes # (Manual) Eosinophils # (Manual) Nucleated RBC % Basophils # (Manual) APTT Heparin Anti-Xa Level ABG pH POC ABG pO2 ABG pO2 ABG HCO3 ABG O2 Saturation ABG Base Excess POC ABG pCO2 ABG Hemoglobin ABG Oxyhemoglobin Oxyhemoglobin Sodium Potassium Chloride Carbon Dioxide BUN Creatinine Glucose POC Glucose 145 H 143 H 124 H Lactic Acid Calcium Phosphorus Magnesium AST ALT Lactate Dehydrogenase CK-MB (CK-2) C-Reactive Protein NT-Pro-B Natriuret Pep Total Protein Albumin Urine WBC (Auto) 11/25/19 11/25/19 11/25/19 00:18 03:18 05:11 WBC 13.7 H RBC Hgb Hct MCHC RDW 17.1 H Lymph % (Auto) 10.8 L [place] % (Auto) 8.7 H [place] # 1.2 H Eos # [place] # (Auto) Eos # (Auto) Seg Neutrophils % 80.2 H Seg Neuts % (Manual) Baso # (Auto) Lymphocytes % (Manual) Monocytes % (Manual) Eosinophils % (Manual) Basophils % (Manual) Seg Neutrophils # 11.0 H Seg Neutrophils # Man Lymphocytes # (Manual) Monocytes # (Manual) Eosinophils # (Manual) Nucleated RBC % Basophils # (Manual) APTT Heparin Anti-Xa Level ABG pH 7.333 L POC ABG pO2 ABG pO2 61.2 L ABG HCO3 ABG O2 Saturation 90.2 L ABG Base Excess POC ABG pCO2 ABG Hemoglobin 13.7 L ABG Oxyhemoglobin Oxyhemoglobin 88.2 L Sodium Potassium Chloride Carbon Dioxide BUN Creatinine Glucose POC Glucose 109 H Lactic Acid Calcium Phosphorus Magnesium AST ALT Lactate Dehydrogenase CK-MB (CK-2) C-Reactive Protein NT-Pro-B Natriuret Pep Total Protein Albumin Urine WBC (Auto) 11/25/19 11/25/19 11/26/19 05:11 11:40 03:12 WBC RBC Hgb Hct MCHC RDW Lymph % (Auto) [place] % (Auto) [place] # Eos # [place] # (Auto) Eos # (Auto) Seg Neutrophils % Seg Neuts % (Manual) Baso # (Auto) Lymphocytes % (Manual) Monocytes % (Manual) Eosinophils % (Manual) Basophils % (Manual) Seg Neutrophils # Seg Neutrophils # Man Lymphocytes # (Manual) Monocytes # (Manual) Eosinophils # (Manual) Nucleated RBC % Basophils # (Manual) APTT Heparin Anti-Xa Level ABG pH POC ABG pO2 ABG pO2 155.1 H ABG HCO3 27.8 H ABG O2 Saturation ABG Base Excess POC ABG pCO2 ABG Hemoglobin 12.2 L ABG Oxyhemoglobin Oxyhemoglobin Sodium Potassium Chloride Carbon Dioxide BUN 23 H Creatinine Glucose 110 H POC Glucose 108 H Lactic Acid Calcium Phosphorus Magnesium AST ALT Lactate Dehydrogenase CK-MB (CK-2) C-Reactive Protein NT-Pro-B Natriuret Pep Total Protein Albumin Urine WBC (Auto) 11/26/19 11/26/19 11/26/19 06:17 10:43 10:43 WBC 11.4 H RBC Hgb Hct MCHC RDW 17.1 H Lymph % (Auto) [place] % (Auto) [place] # Eos # [place] # (Auto) Eos # (Auto) Seg Neutrophils % Seg Neuts % (Manual) Baso # (Auto) Lymphocytes % (Manual) Monocytes % (Manual) Eosinophils % (Manual) Basophils % (Manual) Seg Neutrophils # Seg Neutrophils # Man Lymphocytes # (Manual) Monocytes # (Manual) Eosinophils # (Manual) Nucleated RBC % Basophils # (Manual) APTT Heparin Anti-Xa Level ABG pH POC ABG pO2 ABG pO2 ABG HCO3 ABG O2 Saturation ABG Base Excess POC ABG pCO2 ABG Hemoglobin ABG Oxyhemoglobin Oxyhemoglobin Sodium Potassium Chloride Carbon Dioxide BUN 29 H Creatinine Glucose POC Glucose 107 H Lactic Acid Calcium Phosphorus Magnesium AST ALT Lactate Dehydrogenase CK-MB (CK-2) C-Reactive Protein NT-Pro-B Natriuret Pep Total Protein Albumin Urine WBC (Auto) 11/26/19 11/27/19 11/27/19 17:11 01:53 04:11 WBC RBC Hgb Hct MCHC RDW Lymph % (Auto) [place] % (Auto) [place] # Eos # [place] # (Auto) Eos # (Auto) Seg Neutrophils % Seg Neuts % (Manual) Baso # (Auto) Lymphocytes % (Manual) Monocytes % (Manual) Eosinophils % (Manual) Basophils % (Manual) Seg Neutrophils # Seg Neutrophils # Man Lymphocytes # (Manual) Monocytes # (Manual) Eosinophils # (Manual) Nucleated RBC % Basophils # (Manual) APTT Heparin Anti-Xa Level ABG pH POC ABG pO2 ABG pO2 ABG HCO3 29.2 H ABG O2 Saturation ABG Base Excess 3.4 H POC ABG pCO2 ABG Hemoglobin 13.3 L ABG Oxyhemoglobin Oxyhemoglobin 94.5 L Sodium Potassium Chloride Carbon Dioxide BUN Creatinine Glucose POC Glucose 113 H 108 H Lactic Acid Calcium Phosphorus Magnesium AST ALT Lactate Dehydrogenase CK-MB (CK-2) C-Reactive Protein NT-Pro-B Natriuret Pep Total Protein Albumin Urine WBC (Auto) 11/27/19 11/28/19 11/28/19 05:27 05:00 05:25 WBC RBC Hgb Hct MCHC RDW Lymph % (Auto) [place] % (Auto) [place] # Eos # [place] # (Auto) Eos # (Auto) Seg Neutrophils % Seg Neuts % (Manual) Baso # (Auto) Lymphocytes % (Manual) Monocytes % (Manual) Eosinophils % (Manual) Basophils % (Manual) Seg Neutrophils # Seg Neutrophils # Man Lymphocytes # (Manual) Monocytes # (Manual) Eosinophils # (Manual) Nucleated RBC % Basophils # (Manual) APTT Heparin Anti-Xa Level ABG pH POC ABG pO2 68.1 L ABG pO2 ABG HCO3 ABG O2 Saturation ABG Base Excess POC ABG pCO2 ABG Hemoglobin ABG Oxyhemoglobin 91.2 L Oxyhemoglobin Sodium Potassium Chloride Carbon Dioxide BUN Creatinine Glucose POC Glucose 111 H 110 H Lactic Acid Calcium Phosphorus Magnesium AST ALT Lactate Dehydrogenase CK-MB (CK-2) C-Reactive Protein NT-Pro-B Natriuret Pep Total Protein Albumin Urine WBC (Auto) 11/28/19 11/28/19 11/28/19 12:08 13:47 13:47 WBC 11.3 H RBC Hgb Hct MCHC RDW 16.1 H Lymph % (Auto) [place] % (Auto) 9.9 H [place] # 1.1 H Eos # [place] # (Auto) Eos # (Auto) Seg Neutrophils % 71.4 H Seg Neuts % (Manual) Baso # (Auto) Lymphocytes % (Manual) Monocytes % (Manual) Eosinophils % (Manual) Basophils % (Manual) Seg Neutrophils # 8.1 H Seg Neutrophils # Man Lymphocytes # (Manual) Monocytes # (Manual) Eosinophils # (Manual) Nucleated RBC % Basophils # (Manual) APTT Heparin Anti-Xa Level ABG pH POC ABG pO2 ABG pO2 ABG HCO3 ABG O2 Saturation ABG Base Excess POC ABG pCO2 ABG Hemoglobin ABG Oxyhemoglobin Oxyhemoglobin Sodium Potassium Chloride Carbon Dioxide BUN 23 H Creatinine Glucose 123 H POC Glucose 112 H Lactic Acid Calcium Phosphorus Magnesium AST ALT Lactate Dehydrogenase CK-MB (CK-2) C-Reactive Protein NT-Pro-B Natriuret Pep Total Protein Albumin 3.7 L Urine WBC (Auto) 11/28/19 11/29/19 11/29/19 17:26 03:55 17:04 WBC RBC Hgb Hct MCHC RDW Lymph % (Auto) [place] % (Auto) [place] # Eos # [place] # (Auto) Eos # (Auto) Seg Neutrophils % Seg Neuts % (Manual) Baso # (Auto) Lymphocytes % (Manual) Monocytes % (Manual) Eosinophils % (Manual) Basophils % (Manual) Seg Neutrophils # Seg Neutrophils # Man Lymphocytes # (Manual) Monocytes # (Manual) Eosinophils # (Manual) Nucleated RBC % Basophils # (Manual) APTT Heparin Anti-Xa Level ABG pH POC ABG pO2 ABG pO2 65.7 L ABG HCO3 28.3 H ABG O2 Saturation 93.9 L ABG Base Excess 3.6 H POC ABG pCO2 ABG Hemoglobin 13.3 L ABG Oxyhemoglobin Oxyhemoglobin 91.5 L Sodium Potassium Chloride Carbon Dioxide BUN Creatinine Glucose POC Glucose 123 H 119 H Lactic Acid Calcium Phosphorus Magnesium AST ALT Lactate Dehydrogenase CK-MB (CK-2) C-Reactive Protein NT-Pro-B Natriuret Pep Total Protein Albumin Urine WBC (Auto) 11/30/19 11/30/19 11/30/19 04:17 04:17 04:56 WBC 13.4 H RBC Hgb Hct MCHC RDW 15.6 H Lymph % (Auto) [place] % (Auto) [place] # Eos # [place] # (Auto) Eos # (Auto) Seg Neutrophils % Seg Neuts % (Manual) Baso # (Auto) Lymphocytes % (Manual) Monocytes % (Manual) Eosinophils % (Manual) Basophils % (Manual) Seg Neutrophils # Seg Neutrophils # Man Lymphocytes # (Manual) Monocytes # (Manual) Eosinophils # (Manual) Nucleated RBC % Basophils # (Manual) APTT Heparin Anti-Xa Level ABG pH POC ABG pO2 ABG pO2 56.3 L ABG HCO3 29.3 H ABG O2 Saturation 91.5 L ABG Base Excess 4.7 H POC ABG pCO2 ABG Hemoglobin 12.1 L ABG Oxyhemoglobin Oxyhemoglobin 89.2 L Sodium 147 H Potassium Chloride Carbon Dioxide BUN 30 H Creatinine Glucose 124 H POC Glucose Lactic Acid Calcium Phosphorus Magnesium AST ALT Lactate Dehydrogenase CK-MB (CK-2) C-Reactive Protein NT-Pro-B Natriuret Pep Total Protein Albumin 3.8 L Urine WBC (Auto) 11/30/19 11/30/19 11/30/19 05:51 11:54 18:17 WBC RBC Hgb Hct MCHC RDW Lymph % (Auto) [place] % (Auto) [place] # Eos # [place] # (Auto) Eos # (Auto) Seg Neutrophils % Seg Neuts % (Manual) Baso # (Auto) Lymphocytes % (Manual) Monocytes % (Manual) Eosinophils % (Manual) Basophils % (Manual) Seg Neutrophils # Seg Neutrophils # Man Lymphocytes # (Manual) Monocytes # (Manual) Eosinophils # (Manual) Nucleated RBC % Basophils # (Manual) APTT Heparin Anti-Xa Level ABG pH POC ABG pO2 ABG pO2 ABG HCO3 ABG O2 Saturation ABG Base Excess POC ABG pCO2 ABG Hemoglobin ABG Oxyhemoglobin Oxyhemoglobin Sodium Potassium Chloride Carbon Dioxide BUN Creatinine Glucose POC Glucose 127 H 115 H 143 H Lactic Acid Calcium Phosphorus Magnesium AST ALT Lactate Dehydrogenase CK-MB (CK-2) C-Reactive Protein NT-Pro-B Natriuret Pep Total Protein Albumin Urine WBC (Auto) 12/01/19 12/01/19 12/01/19 01:18 05:22 12:16 WBC RBC Hgb Hct MCHC RDW Lymph % (Auto) [place] % (Auto) [place] # Eos # [place] # (Auto) Eos # (Auto) Seg Neutrophils % Seg Neuts % (Manual) Baso # (Auto) Lymphocytes % (Manual) Monocytes % (Manual) Eosinophils % (Manual) Basophils % (Manual) Seg Neutrophils # Seg Neutrophils # Man Lymphocytes # (Manual) Monocytes # (Manual) Eosinophils # (Manual) Nucleated RBC % Basophils # (Manual) APTT Heparin Anti-Xa Level ABG pH POC ABG pO2 ABG pO2 ABG HCO3 ABG O2 Saturation ABG Base Excess POC ABG pCO2 ABG Hemoglobin ABG Oxyhemoglobin Oxyhemoglobin Sodium Potassium 3.5 L Chloride 107.8 H Carbon Dioxide BUN 37 H Creatinine Glucose 157 H POC Glucose 118 H 148 H Lactic Acid Calcium 8.2 L D Phosphorus Magnesium AST 48 H ALT 60 H Lactate Dehydrogenase 194 H CK-MB (CK-2) C-Reactive Protein 8.50 H NT-Pro-B Natriuret Pep Total Protein 5.5 L Albumin 2.8 L Urine WBC (Auto) 12/01/19 12/02/19 12/02/19 18:04 00:05 05:16 WBC 11.4 H RBC Hgb Hct MCHC RDW 15.9 H Lymph % (Auto) [place] % (Auto) 9.9 H [place] # 1.1 H Eos # [place] # (Auto) Eos # (Auto) Seg Neutrophils % 70.3 H Seg Neuts % (Manual) Baso # (Auto) Lymphocytes % (Manual) Monocytes % (Manual) Eosinophils % (Manual) Basophils % (Manual) Seg Neutrophils # 8.0 H Seg Neutrophils # Man Lymphocytes # (Manual) Monocytes # (Manual) Eosinophils # (Manual) Nucleated RBC % Basophils # (Manual) APTT Heparin Anti-Xa Level ABG pH POC ABG pO2 ABG pO2 ABG HCO3 ABG O2 Saturation ABG Base Excess POC ABG pCO2 ABG Hemoglobin ABG Oxyhemoglobin Oxyhemoglobin Sodium Potassium Chloride Carbon Dioxide BUN Creatinine Glucose POC Glucose 143 H 107 H Lactic Acid Calcium Phosphorus Magnesium AST ALT Lactate Dehydrogenase CK-MB (CK-2) C-Reactive Protein NT-Pro-B Natriuret Pep Total Protein Albumin Urine WBC (Auto) 12/02/19 12/02/19 12/02/19 05:16 06:03 11:52 WBC RBC Hgb Hct MCHC RDW Lymph % (Auto) [place] % (Auto) [place] # Eos # [place] # (Auto) Eos # (Auto) Seg Neutrophils % Seg Neuts % (Manual) Baso # (Auto) Lymphocytes % (Manual) Monocytes % (Manual) Eosinophils % (Manual) Basophils % (Manual) Seg Neutrophils # Seg Neutrophils # Man Lymphocytes # (Manual) Monocytes # (Manual) Eosinophils # (Manual) Nucleated RBC % Basophils # (Manual) APTT Heparin Anti-Xa Level ABG pH POC ABG pO2 ABG pO2 ABG HCO3 ABG O2 Saturation ABG Base Excess POC ABG pCO2 ABG Hemoglobin ABG Oxyhemoglobin Oxyhemoglobin Sodium 146 H Potassium Chloride Carbon Dioxide BUN 28 H Creatinine Glucose 123 H POC Glucose 110 H 152 H Lactic Acid Calcium Phosphorus Magnesium AST ALT Lactate Dehydrogenase CK-MB (CK-2) C-Reactive Protein NT-Pro-B Natriuret Pep Total Protein Albumin Urine WBC (Auto) 12/02/19 12/02/19 12/02/19 12:58 17:58 23:36 WBC RBC Hgb Hct MCHC RDW Lymph % (Auto) [place] % (Auto) [place] # Eos # [place] # (Auto) Eos # (Auto) Seg Neutrophils % Seg Neuts % (Manual) Baso # (Auto) Lymphocytes % (Manual) Monocytes % (Manual) Eosinophils % (Manual) Basophils % (Manual) Seg Neutrophils # Seg Neutrophils # Man Lymphocytes # (Manual) Monocytes # (Manual) Eosinophils # (Manual) Nucleated RBC % Basophils # (Manual) APTT Heparin Anti-Xa Level ABG pH POC ABG pO2 78.1 L ABG pO2 ABG HCO3 ABG O2 Saturation ABG Base Excess POC ABG pCO2 ABG Hemoglobin ABG Oxyhemoglobin Oxyhemoglobin Sodium Potassium Chloride Carbon Dioxide BUN Creatinine Glucose POC Glucose 120 H 123 H Lactic Acid Calcium Phosphorus Magnesium AST ALT Lactate Dehydrogenase CK-MB (CK-2) C-Reactive Protein NT-Pro-B Natriuret Pep Total Protein Albumin Urine WBC (Auto) 12/03/19 12/03/19 12/03/19 06:03 06:14 11:46 WBC RBC Hgb Hct MCHC RDW Lymph % (Auto) [place] % (Auto) [place] # Eos # [place] # (Auto) Eos # (Auto) Seg Neutrophils % Seg Neuts % (Manual) Baso # (Auto) Lymphocytes % (Manual) Monocytes % (Manual) Eosinophils % (Manual) Basophils % (Manual) Seg Neutrophils # Seg Neutrophils # Man Lymphocytes # (Manual) Monocytes # (Manual) Eosinophils # (Manual) Nucleated RBC % Basophils # (Manual) APTT Heparin Anti-Xa Level ABG pH POC ABG pO2 ABG pO2 ABG HCO3 ABG O2 Saturation ABG Base Excess POC ABG pCO2 ABG Hemoglobin ABG Oxyhemoglobin Oxyhemoglobin Sodium Potassium Chloride Carbon Dioxide BUN Creatinine Glucose POC Glucose 142 H 130 H Lactic Acid Calcium Phosphorus Magnesium AST ALT Lactate Dehydrogenase CK-MB (CK-2) C-Reactive Protein NT-Pro-B Natriuret Pep Total Protein Albumin Urine WBC (Auto) 8.0 H 12/03/19 12/03/19 12/04/19 15:50 17:39 00:04 WBC RBC Hgb Hct MCHC RDW Lymph % (Auto) [place] % (Auto) [place] # Eos # [place] # (Auto) Eos # (Auto) Seg Neutrophils % Seg Neuts % (Manual) Baso # (Auto) Lymphocytes % (Manual) Monocytes % (Manual) Eosinophils % (Manual) Basophils % (Manual) Seg Neutrophils # Seg Neutrophils # Man Lymphocytes # (Manual) Monocytes # (Manual) Eosinophils # (Manual) Nucleated RBC % Basophils # (Manual) APTT Heparin Anti-Xa Level ABG pH POC ABG pO2 ABG pO2 ABG HCO3 ABG O2 Saturation ABG Base Excess POC ABG pCO2 ABG Hemoglobin ABG Oxyhemoglobin Oxyhemoglobin Sodium Potassium Chloride Carbon Dioxide BUN Creatinine Glucose POC Glucose 146 H 133 H Lactic Acid Calcium Phosphorus 2.40 L Magnesium AST ALT Lactate Dehydrogenase CK-MB (CK-2) C-Reactive Protein NT-Pro-B Natriuret Pep Total Protein Albumin Urine WBC (Auto) 12/04/19 12/04/19 12/04/19 03:58 03:58 05:22 WBC 12.5 H RBC Hgb 11.2 L Hct 35.2 L MCHC RDW 16.0 H Lymph % (Auto) [place] % (Auto) 9.6 H [place] # 1.2 H Eos # 0.5 H [place] # (Auto) Eos # (Auto) Seg Neutrophils % Seg Neuts % (Manual) Baso # (Auto) Lymphocytes % (Manual) Monocytes % (Manual) Eosinophils % (Manual) Basophils % (Manual) Seg Neutrophils # 8.6 H Seg Neutrophils # Man Lymphocytes # (Manual) Monocytes # (Manual) Eosinophils # (Manual) Nucleated RBC % Basophils # (Manual) APTT Heparin Anti-Xa Level ABG pH POC ABG pO2 ABG pO2 ABG HCO3 ABG O2 Saturation ABG Base Excess POC ABG pCO2 ABG Hemoglobin ABG Oxyhemoglobin Oxyhemoglobin Sodium 146 H Potassium Chloride 108.6 H Carbon Dioxide BUN 30 H Creatinine 0.7 L Glucose 121 H POC Glucose 132 H Lactic Acid Calcium Phosphorus Magnesium AST ALT Lactate Dehydrogenase CK-MB (CK-2) C-Reactive Protein NT-Pro-B Natriuret Pep Total Protein Albumin Urine WBC (Auto) 12/04/19 12/04/19 12/05/19 13:26 18:43 00:19 WBC RBC Hgb Hct MCHC RDW Lymph % (Auto) [place] % (Auto) [place] # Eos # [place] # (Auto) Eos # (Auto) Seg Neutrophils % Seg Neuts % (Manual) Baso # (Auto) Lymphocytes % (Manual) Monocytes % (Manual) Eosinophils % (Manual) Basophils % (Manual) Seg Neutrophils # Seg Neutrophils # Man Lymphocytes # (Manual) Monocytes # (Manual) Eosinophils # (Manual) Nucleated RBC % Basophils # (Manual) APTT Heparin Anti-Xa Level ABG pH POC ABG pO2 ABG pO2 ABG HCO3 ABG O2 Saturation ABG Base Excess POC ABG pCO2 ABG Hemoglobin ABG Oxyhemoglobin Oxyhemoglobin Sodium Potassium Chloride Carbon Dioxide BUN Creatinine Glucose POC Glucose 185 H 156 H 150 H Lactic Acid Calcium Phosphorus Magnesium AST ALT Lactate Dehydrogenase CK-MB (CK-2) C-Reactive Protein NT-Pro-B Natriuret Pep Total Protein Albumin Urine WBC (Auto) 12/05/19 12/05/19 12/05/19 03:37 03:37 05:14 WBC 16.3 H RBC Hgb 11.4 L Hct MCHC RDW 15.6 H Lymph % (Auto) 9.9 L [place] % (Auto) 9.7 H [place] # 1.6 H Eos # [place] # (Auto) Eos # (Auto) Seg Neutrophils % 78.0 H Seg Neuts % (Manual) Baso # (Auto) Lymphocytes % (Manual) Monocytes % (Manual) Eosinophils % (Manual) Basophils % (Manual) Seg Neutrophils # 12.7 H Seg Neutrophils # Man Lymphocytes # (Manual) Monocytes # (Manual) Eosinophils # (Manual) Nucleated RBC % Basophils # (Manual) APTT Heparin Anti-Xa Level ABG pH POC ABG pO2 ABG pO2 ABG HCO3 ABG O2 Saturation ABG Base Excess POC ABG pCO2 ABG Hemoglobin ABG Oxyhemoglobin Oxyhemoglobin Sodium 146 H Potassium Chloride 107.2 H Carbon Dioxide BUN 27 H Creatinine 0.7 L Glucose 171 H POC Glucose 168 H Lactic Acid Calcium Phosphorus Magnesium AST ALT Lactate Dehydrogenase CK-MB (CK-2) C-Reactive Protein NT-Pro-B Natriuret Pep Total Protein Albumin Urine WBC (Auto) 12/05/19 12/05/19 12/05/19 12:31 18:10 23:58 WBC RBC Hgb Hct MCHC RDW Lymph % (Auto) [place] % (Auto) [place] # Eos # [place] # (Auto) Eos # (Auto) Seg Neutrophils % Seg Neuts % (Manual) Baso # (Auto) Lymphocytes % (Manual) Monocytes % (Manual) Eosinophils % (Manual) Basophils % (Manual) Seg Neutrophils # Seg Neutrophils # Man Lymphocytes # (Manual) Monocytes # (Manual) Eosinophils # (Manual) Nucleated RBC % Basophils # (Manual) APTT Heparin Anti-Xa Level ABG pH POC ABG pO2 ABG pO2 ABG HCO3 ABG O2 Saturation ABG Base Excess POC ABG pCO2 ABG Hemoglobin ABG Oxyhemoglobin Oxyhemoglobin Sodium Potassium Chloride Carbon Dioxide BUN Creatinine Glucose POC Glucose 159 H 198 H 115 H Lactic Acid Calcium Phosphorus Magnesium AST ALT Lactate Dehydrogenase CK-MB (CK-2) C-Reactive Protein NT-Pro-B Natriuret Pep Total Protein Albumin Urine WBC (Auto) 12/06/19 12/06/19 12/06/19 05:24 05:24 05:25 WBC 14.9 H RBC Hgb 10.8 L Hct 34.0 L MCHC RDW 15.6 H Lymph % (Auto) 10.7 L [place] % (Auto) 8.3 H [place] # 1.2 H Eos # [place] # (Auto) Eos # (Auto) Seg Neutrophils % 78.7 H Seg Neuts % (Manual) Baso # (Auto) Lymphocytes % (Manual) Monocytes % (Manual) Eosinophils % (Manual) Basophils % (Manual) Seg Neutrophils # 11.7 H Seg Neutrophils # Man Lymphocytes # (Manual) Monocytes # (Manual) Eosinophils # (Manual) Nucleated RBC % Basophils # (Manual) APTT Heparin Anti-Xa Level ABG pH POC ABG pO2 ABG pO2 ABG HCO3 ABG O2 Saturation ABG Base Excess POC ABG pCO2 ABG Hemoglobin ABG Oxyhemoglobin Oxyhemoglobin Sodium 148 H Potassium 5.1 H Chloride 107.6 H Carbon Dioxide BUN 27 H Creatinine 0.7 L Glucose 155 H POC Glucose 157 H Lactic Acid Calcium Phosphorus Magnesium AST ALT Lactate Dehydrogenase CK-MB (CK-2) C-Reactive Protein NT-Pro-B Natriuret Pep Total Protein Albumin Urine WBC (Auto) 12/07/19 12/07/19 12/07/19 00:13 05:34 11:33 WBC RBC Hgb Hct MCHC RDW Lymph % (Auto) [place] % (Auto) [place] # Eos # [place] # (Auto) Eos # (Auto) Seg Neutrophils % Seg Neuts % (Manual) Baso # (Auto) Lymphocytes % (Manual) Monocytes % (Manual) Eosinophils % (Manual) Basophils % (Manual) Seg Neutrophils # Seg Neutrophils # Man Lymphocytes # (Manual) Monocytes # (Manual) Eosinophils # (Manual) Nucleated RBC % Basophils # (Manual) APTT Heparin Anti-Xa Level ABG pH POC ABG pO2 ABG pO2 ABG HCO3 ABG O2 Saturation ABG Base Excess POC ABG pCO2 ABG Hemoglobin ABG Oxyhemoglobin Oxyhemoglobin Sodium Potassium Chloride Carbon Dioxide BUN Creatinine Glucose POC Glucose 142 H 111 H 169 H Lactic Acid Calcium Phosphorus Magnesium AST ALT Lactate Dehydrogenase CK-MB (CK-2) C-Reactive Protein NT-Pro-B Natriuret Pep Total Protein Albumin Urine WBC (Auto) 12/07/19 12/07/19 12/07/19 12:41 13:25 18:19 WBC 12.4 H RBC 3.53 L Hgb 10.2 L Hct 32.1 L MCHC RDW 15.3 H Lymph % (Auto) 10.6 L [place] % (Auto) 7.8 H [place] # 1.0 H Eos # [place] # (Auto) Eos # (Auto) Seg Neutrophils % 77.6 H Seg Neuts % (Manual) Baso # (Auto) Lymphocytes % (Manual) Monocytes % (Manual) Eosinophils % (Manual) Basophils % (Manual) Seg Neutrophils # 9.6 H Seg Neutrophils # Man Lymphocytes # (Manual) Monocytes # (Manual) Eosinophils # (Manual) Nucleated RBC % Basophils # (Manual) APTT Heparin Anti-Xa Level ABG pH POC ABG pO2 ABG pO2 ABG HCO3 ABG O2 Saturation ABG Base Excess POC ABG pCO2 ABG Hemoglobin ABG Oxyhemoglobin Oxyhemoglobin Sodium 149 H Potassium Chloride 108.4 H Carbon Dioxide BUN 26 H Creatinine 0.6 L Glucose 149 H POC Glucose 164 H Lactic Acid Calcium Phosphorus Magnesium 2.60 H AST 121 H ALT 145 H Lactate Dehydrogenase CK-MB (CK-2) C-Reactive Protein NT-Pro-B Natriuret Pep Total Protein Albumin 2.6 L Urine WBC (Auto) 12/07/19 12/08/19 12/08/19 22:25 00:02 03:55 WBC 13.3 H RBC 3.40 L Hgb 9.7 L Hct 30.8 L MCHC 31 L RDW 15.5 H Lymph % (Auto) [place] % (Auto) 8.1 H [place] # 1.1 H Eos # [place] # (Auto) Eos # (Auto) Seg Neutrophils % 73.0 H Seg Neuts % (Manual) Baso # (Auto) Lymphocytes % (Manual) Monocytes % (Manual) Eosinophils % (Manual) Basophils % (Manual) Seg Neutrophils # 9.7 H Seg Neutrophils # Man Lymphocytes # (Manual) Monocytes # (Manual) Eosinophils # (Manual) Nucleated RBC % Basophils # (Manual) APTT Heparin Anti-Xa Level 0.12 L ABG pH POC ABG pO2 ABG pO2 ABG HCO3 ABG O2 Saturation ABG Base Excess POC ABG pCO2 ABG Hemoglobin ABG Oxyhemoglobin Oxyhemoglobin Sodium Potassium Chloride Carbon Dioxide BUN Creatinine Glucose POC Glucose 151 H Lactic Acid Calcium Phosphorus Magnesium AST ALT Lactate Dehydrogenase CK-MB (CK-2) C-Reactive Protein NT-Pro-B Natriuret Pep Total Protein Albumin Urine WBC (Auto) 12/08/19 12/08/19 12/08/19 03:55 05:21 06:01 WBC RBC Hgb Hct MCHC RDW Lymph % (Auto) [place] % (Auto) [place] # Eos # [place] # (Auto) Eos # (Auto) Seg Neutrophils % Seg Neuts % (Manual) Baso # (Auto) Lymphocytes % (Manual) Monocytes % (Manual) Eosinophils % (Manual) Basophils % (Manual) Seg Neutrophils # Seg Neutrophils # Man Lymphocytes # (Manual) Monocytes # (Manual) Eosinophils # (Manual) Nucleated RBC % Basophils # (Manual) APTT Heparin Anti-Xa Level 0.20 L ABG pH POC ABG pO2 ABG pO2 ABG HCO3 ABG O2 Saturation ABG Base Excess POC ABG pCO2 ABG Hemoglobin ABG Oxyhemoglobin Oxyhemoglobin Sodium 149 H Potassium Chloride 108.0 H Carbon Dioxide BUN 28 H Creatinine 0.6 L Glucose 144 H POC Glucose 143 H Lactic Acid Calcium Phosphorus Magnesium AST 98 H ALT 145 H Lactate Dehydrogenase CK-MB (CK-2) C-Reactive Protein NT-Pro-B Natriuret Pep Total Protein 6.0 L Albumin 2.4 L Urine WBC (Auto) 12/08/19 12/08/19 12/08/19 12:08 18:11 23:53 WBC RBC Hgb Hct MCHC RDW Lymph % (Auto) [place] % (Auto) [place] # Eos # [place] # (Auto) Eos # (Auto) Seg Neutrophils % Seg Neuts % (Manual) Baso # (Auto) Lymphocytes % (Manual) Monocytes % (Manual) Eosinophils % (Manual) Basophils % (Manual) Seg Neutrophils # Seg Neutrophils # Man Lymphocytes # (Manual) Monocytes # (Manual) Eosinophils # (Manual) Nucleated RBC % Basophils # (Manual) APTT Heparin Anti-Xa Level ABG pH POC ABG pO2 ABG pO2 ABG HCO3 ABG O2 Saturation ABG Base Excess POC ABG pCO2 ABG Hemoglobin ABG Oxyhemoglobin Oxyhemoglobin Sodium Potassium Chloride Carbon Dioxide BUN Creatinine Glucose POC Glucose 172 H 122 H 162 H Lactic Acid Calcium Phosphorus Magnesium AST ALT Lactate Dehydrogenase CK-MB (CK-2) C-Reactive Protein NT-Pro-B Natriuret Pep Total Protein Albumin Urine WBC (Auto) 12/09/19 12/09/19 12/09/19 04:03 04:03 05:53 WBC RBC Hgb 9.1 L Hct 28.9 L MCHC RDW Lymph % (Auto) [place] % (Auto) [place] # Eos # [place] # (Auto) Eos # (Auto) Seg Neutrophils % Seg Neuts % (Manual) Baso # (Auto) Lymphocytes % (Manual) Monocytes % (Manual) Eosinophils % (Manual) Basophils % (Manual) Seg Neutrophils # Seg Neutrophils # Man Lymphocytes # (Manual) Monocytes # (Manual) Eosinophils # (Manual) Nucleated RBC % Basophils # (Manual) APTT Heparin Anti-Xa Level 0.15 L ABG pH POC ABG pO2 ABG pO2 ABG HCO3 ABG O2 Saturation ABG Base Excess POC ABG pCO2 ABG Hemoglobin ABG Oxyhemoglobin Oxyhemoglobin Sodium Potassium Chloride Carbon Dioxide BUN Creatinine Glucose POC Glucose 124 H Lactic Acid Calcium Phosphorus Magnesium AST ALT Lactate Dehydrogenase CK-MB (CK-2) C-Reactive Protein NT-Pro-B Natriuret Pep Total Protein Albumin Urine WBC (Auto) 12/09/19 12/09/19 12/10/19 09:43 12:41 00:13 WBC RBC Hgb Hct MCHC RDW Lymph % (Auto) [place] % (Auto) [place] # Eos # [place] # (Auto) Eos # (Auto) Seg Neutrophils % Seg Neuts % (Manual) Baso # (Auto) Lymphocytes % (Manual) Monocytes % (Manual) Eosinophils % (Manual) Basophils % (Manual) Seg Neutrophils # Seg Neutrophils # Man Lymphocytes # (Manual) Monocytes # (Manual) Eosinophils # (Manual) Nucleated RBC % Basophils # (Manual) APTT Heparin Anti-Xa Level ABG pH POC ABG pO2 ABG pO2 ABG HCO3 ABG O2 Saturation ABG Base Excess POC ABG pCO2 ABG Hemoglobin ABG Oxyhemoglobin Oxyhemoglobin Sodium Potassium Chloride Carbon Dioxide BUN 25 H Creatinine 0.6 L Glucose 131 H POC Glucose 109 H 120 H Lactic Acid Calcium Phosphorus Magnesium AST ALT Lactate Dehydrogenase CK-MB (CK-2) C-Reactive Protein NT-Pro-B Natriuret Pep Total Protein Albumin Urine WBC (Auto) 12/10/19 12/10/19 12/10/19 04:14 04:14 12:00 WBC 13.3 H RBC 3.34 L Hgb 9.6 L Hct 30.4 L MCHC RDW 15.4 H Lymph % (Auto) [place] % (Auto) [place] # Eos # [place] # (Auto) Eos # (Auto) Seg Neutrophils % Seg Neuts % (Manual) 75.0 H Baso # (Auto) Lymphocytes % (Manual) 13.0 L Monocytes % (Manual) 8.0 H Eosinophils % (Manual) Basophils % (Manual) 2.0 H Seg Neutrophils # Seg Neutrophils # Man 10.0 H Lymphocytes # (Manual) Monocytes # (Manual) 1.1 H Eosinophils # (Manual) Nucleated RBC % Basophils # (Manual) 0.3 H APTT Heparin Anti-Xa Level ABG pH POC ABG pO2 ABG pO2 ABG HCO3 ABG O2 Saturation ABG Base Excess POC ABG pCO2 ABG Hemoglobin ABG Oxyhemoglobin Oxyhemoglobin Sodium 147 H Potassium Chloride 108.3 H Carbon Dioxide BUN 21 H Creatinine 0.6 L Glucose 104 H POC Glucose 133 H Lactic Acid Calcium Phosphorus Magnesium AST ALT Lactate Dehydrogenase CK-MB (CK-2) C-Reactive Protein NT-Pro-B Natriuret Pep Total Protein Albumin Urine WBC (Auto) 12/10/19 12/10/19 12/11/19 18:44 21:20 00:08 WBC 14.9 H RBC 3.36 L Hgb 9.6 L Hct 30.5 L MCHC RDW 15.4 H Lymph % (Auto) [place] % (Auto) [place] # Eos # [place] # (Auto) Eos # (Auto) Seg Neutrophils % Seg Neuts % (Manual) Baso # (Auto) Lymphocytes % (Manual) Monocytes % (Manual) Eosinophils % (Manual) Basophils % (Manual) Seg Neutrophils # Seg Neutrophils # Man Lymphocytes # (Manual) Monocytes # (Manual) Eosinophils # (Manual) Nucleated RBC % Basophils # (Manual) APTT Heparin Anti-Xa Level ABG pH POC ABG pO2 ABG pO2 ABG HCO3 ABG O2 Saturation ABG Base Excess POC ABG pCO2 ABG Hemoglobin ABG Oxyhemoglobin Oxyhemoglobin Sodium Potassium Chloride Carbon Dioxide BUN Creatinine Glucose POC Glucose 119 H 134 H Lactic Acid Calcium Phosphorus Magnesium AST ALT Lactate Dehydrogenase CK-MB (CK-2) C-Reactive Protein NT-Pro-B Natriuret Pep Total Protein Albumin Urine WBC (Auto) 12/11/19 12/11/19 12/11/19 03:54 07:28 08:36 WBC 11.9 H RBC 3.25 L Hgb 9.6 L Hct 29.2 L MCHC RDW 15.7 H Lymph % (Auto) [place] % (Auto) [place] # Eos # [place] # (Auto) Eos # (Auto) Seg Neutrophils % Seg Neuts % (Manual) Baso # (Auto) Lymphocytes % (Manual) Monocytes % (Manual) Eosinophils % (Manual) Basophils % (Manual) Seg Neutrophils # Seg Neutrophils # Man Lymphocytes # (Manual) Monocytes # (Manual) Eosinophils # (Manual) Nucleated RBC % Basophils # (Manual) APTT Heparin Anti-Xa Level 0.10 L 0.16 L ABG pH POC ABG pO2 ABG pO2 ABG HCO3 ABG O2 Saturation ABG Base Excess POC ABG pCO2 ABG Hemoglobin ABG Oxyhemoglobin Oxyhemoglobin Sodium Potassium Chloride Carbon Dioxide BUN Creatinine Glucose POC Glucose Lactic Acid Calcium Phosphorus Magnesium AST ALT Lactate Dehydrogenase CK-MB (CK-2) C-Reactive Protein NT-Pro-B Natriuret Pep Total Protein Albumin Urine WBC (Auto) 12/11/19 12/11/19 12/11/19 08:36 11:45 17:15 WBC RBC Hgb Hct MCHC RDW Lymph % (Auto) [place] % (Auto) [place] # Eos # [place] # (Auto) Eos # (Auto) Seg Neutrophils % Seg Neuts % (Manual) Baso # (Auto) Lymphocytes % (Manual) Monocytes % (Manual) Eosinophils % (Manual) Basophils % (Manual) Seg Neutrophils # Seg Neutrophils # Man Lymphocytes # (Manual) Monocytes # (Manual) Eosinophils # (Manual) Nucleated RBC % Basophils # (Manual) APTT Heparin Anti-Xa Level ABG pH POC ABG pO2 ABG pO2 ABG HCO3 ABG O2 Saturation ABG Base Excess POC ABG pCO2 ABG Hemoglobin ABG Oxyhemoglobin Oxyhemoglobin Sodium Potassium Chloride Carbon Dioxide BUN Creatinine 0.5 L Glucose 128 H POC Glucose 136 H 109 H Lactic Acid Calcium Phosphorus Magnesium AST ALT Lactate Dehydrogenase CK-MB (CK-2) C-Reactive Protein NT-Pro-B Natriuret Pep Total Protein Albumin Urine WBC (Auto) 12/12/19 12/12/19 12/12/19 00:03 05:53 05:53 WBC RBC Hgb 8.8 L Hct 27.6 L MCHC RDW Lymph % (Auto) [place] % (Auto) [place] # Eos # [place] # (Auto) Eos # (Auto) Seg Neutrophils % Seg Neuts % (Manual) Baso # (Auto) Lymphocytes % (Manual) Monocytes % (Manual) Eosinophils % (Manual) Basophils % (Manual) Seg Neutrophils # Seg Neutrophils # Man Lymphocytes # (Manual) Monocytes # (Manual) Eosinophils # (Manual) Nucleated RBC % Basophils # (Manual) APTT Heparin Anti-Xa Level 0.22 L ABG pH POC ABG pO2 ABG pO2 ABG HCO3 ABG O2 Saturation ABG Base Excess POC ABG pCO2 ABG Hemoglobin ABG Oxyhemoglobin Oxyhemoglobin Sodium Potassium Chloride Carbon Dioxide BUN Creatinine Glucose POC Glucose 116 H Lactic Acid Calcium Phosphorus Magnesium AST ALT Lactate Dehydrogenase CK-MB (CK-2) C-Reactive Protein NT-Pro-B Natriuret Pep Total Protein Albumin Urine WBC (Auto) 12/12/19 12/12/19 12/12/19 09:38 12:18 17:44 WBC RBC Hgb Hct MCHC RDW Lymph % (Auto) [place] % (Auto) [place] # Eos # [place] # (Auto) Eos # (Auto) Seg Neutrophils % Seg Neuts % (Manual) Baso # (Auto) Lymphocytes % (Manual) Monocytes % (Manual) Eosinophils % (Manual) Basophils % (Manual) Seg Neutrophils # Seg Neutrophils # Man Lymphocytes # (Manual) Monocytes # (Manual) Eosinophils # (Manual) Nucleated RBC % Basophils # (Manual) APTT Heparin Anti-Xa Level ABG pH POC ABG pO2 ABG pO2 ABG HCO3 ABG O2 Saturation ABG Base Excess POC ABG pCO2 ABG Hemoglobin ABG Oxyhemoglobin Oxyhemoglobin Sodium Potassium Chloride Carbon Dioxide BUN Creatinine Glucose POC Glucose 115 H 146 H 146 H Lactic Acid Calcium Phosphorus Magnesium AST ALT Lactate Dehydrogenase CK-MB (CK-2) C-Reactive Protein NT-Pro-B Natriuret Pep Total Protein Albumin Urine WBC (Auto) 12/12/19 12/13/19 12/13/19 23:33 05:32 05:32 WBC 13.1 H RBC 3.27 L Hgb 9.5 L Hct 29.3 L MCHC RDW 15.6 H Lymph % (Auto) [place] % (Auto) [place] # Eos # [place] # (Auto) Eos # (Auto) Seg Neutrophils % Seg Neuts % (Manual) 74.0 H Baso # (Auto) Lymphocytes % (Manual) 8.0 L Monocytes % (Manual) 9.0 H Eosinophils % (Manual) 5.0 H Basophils % (Manual) Seg Neutrophils # Seg Neutrophils # Man 9.7 H Lymphocytes # (Manual) 1.0 L Monocytes # (Manual) 1.2 H Eosinophils # (Manual) 0.7 H Nucleated RBC % Basophils # (Manual) APTT Heparin Anti-Xa Level 0.20 L ABG pH POC ABG pO2 ABG pO2 ABG HCO3 ABG O2 Saturation ABG Base Excess POC ABG pCO2 ABG Hemoglobin ABG Oxyhemoglobin Oxyhemoglobin Sodium Potassium Chloride Carbon Dioxide BUN Creatinine Glucose POC Glucose 126 H Lactic Acid Calcium Phosphorus Magnesium AST ALT Lactate Dehydrogenase CK-MB (CK-2) C-Reactive Protein NT-Pro-B Natriuret Pep Total Protein Albumin Urine WBC (Auto) 12/13/19 12/13/19 12/13/19 05:32 05:46 11:57 WBC RBC Hgb Hct MCHC RDW Lymph % (Auto) [place] % (Auto) [place] # Eos # [place] # (Auto) Eos # (Auto) Seg Neutrophils % Seg Neuts % (Manual) Baso # (Auto) Lymphocytes % (Manual) Monocytes % (Manual) Eosinophils % (Manual) Basophils % (Manual) Seg Neutrophils # Seg Neutrophils # Man Lymphocytes # (Manual) Monocytes # (Manual) Eosinophils # (Manual) Nucleated RBC % Basophils # (Manual) APTT Heparin Anti-Xa Level ABG pH POC ABG pO2 ABG pO2 ABG HCO3 ABG O2 Saturation ABG Base Excess POC ABG pCO2 ABG Hemoglobin ABG Oxyhemoglobin Oxyhemoglobin Sodium Potassium Chloride Carbon Dioxide 31 H BUN Creatinine 0.6 L Glucose 114 H POC Glucose 118 H 133 H Lactic Acid Calcium Phosphorus Magnesium AST ALT Lactate Dehydrogenase CK-MB (CK-2) C-Reactive Protein NT-Pro-B Natriuret Pep Total Protein Albumin Urine WBC (Auto) 12/13/19 12/13/19 12/14/19 17:44 23:46 05:32 WBC RBC Hgb Hct MCHC RDW Lymph % (Auto) [place] % (Auto) [place] # Eos # [place] # (Auto) Eos # (Auto) Seg Neutrophils % Seg Neuts % (Manual) Baso # (Auto) Lymphocytes % (Manual) Monocytes % (Manual) Eosinophils % (Manual) Basophils % (Manual) Seg Neutrophils # Seg Neutrophils # Man Lymphocytes # (Manual) Monocytes # (Manual) Eosinophils # (Manual) Nucleated RBC % Basophils # (Manual) APTT Heparin Anti-Xa Level ABG pH POC ABG pO2 ABG pO2 ABG HCO3 ABG O2 Saturation ABG Base Excess POC ABG pCO2 ABG Hemoglobin ABG Oxyhemoglobin Oxyhemoglobin Sodium Potassium Chloride Carbon Dioxide BUN Creatinine Glucose POC Glucose 161 H 126 H 139 H Lactic Acid Calcium Phosphorus Magnesium AST ALT Lactate Dehydrogenase CK-MB (CK-2) C-Reactive Protein NT-Pro-B Natriuret Pep Total Protein Albumin Urine WBC (Auto) 12/14/19 12/14/19 12/14/19 06:03 06:03 09:37 WBC RBC Hgb 9.6 L Hct 30.4 L MCHC RDW Lymph % (Auto) [place] % (Auto) [place] # Eos # [place] # (Auto) Eos # (Auto) Seg Neutrophils % Seg Neuts % (Manual) Baso # (Auto) Lymphocytes % (Manual) Monocytes % (Manual) Eosinophils % (Manual) Basophils % (Manual) Seg Neutrophils # Seg Neutrophils # Man Lymphocytes # (Manual) Monocytes # (Manual) Eosinophils # (Manual) Nucleated RBC % Basophils # (Manual) APTT Heparin Anti-Xa Level 0.24 L ABG pH POC ABG pO2 ABG pO2 ABG HCO3 ABG O2 Saturation ABG Base Excess POC ABG pCO2 ABG Hemoglobin ABG Oxyhemoglobin Oxyhemoglobin Sodium Potassium Chloride Carbon Dioxide BUN Creatinine 0.6 L Glucose 162 H POC Glucose Lactic Acid Calcium Phosphorus Magnesium AST 71 H ALT 118 H Lactate Dehydrogenase CK-MB (CK-2) C-Reactive Protein NT-Pro-B Natriuret Pep Total Protein 6.2 L Albumin 2.3 L Urine WBC (Auto) 12/14/19 12/14/19 12/15/19 12:06 18:18 00:19 WBC RBC Hgb Hct MCHC RDW Lymph % (Auto) [place] % (Auto) [place] # Eos # [place] # (Auto) Eos # (Auto) Seg Neutrophils % Seg Neuts % (Manual) Baso # (Auto) Lymphocytes % (Manual) Monocytes % (Manual) Eosinophils % (Manual) Basophils % (Manual) Seg Neutrophils # Seg Neutrophils # Man Lymphocytes # (Manual) Monocytes # (Manual) Eosinophils # (Manual) Nucleated RBC % Basophils # (Manual) APTT Heparin Anti-Xa Level ABG pH POC ABG pO2 ABG pO2 ABG HCO3 ABG O2 Saturation ABG Base Excess POC ABG pCO2 ABG Hemoglobin ABG Oxyhemoglobin Oxyhemoglobin Sodium Potassium Chloride Carbon Dioxide BUN Creatinine Glucose POC Glucose 147 H 166 H 123 H Lactic Acid Calcium Phosphorus Magnesium AST ALT Lactate Dehydrogenase CK-MB (CK-2) C-Reactive Protein NT-Pro-B Natriuret Pep Total Protein Albumin Urine WBC (Auto) 12/15/19 12/15/19 12/15/19 05:28 05:29 05:29 WBC 14.9 H RBC 3.19 L Hgb 9.1 L Hct 28.7 L MCHC RDW 16.0 H Lymph % (Auto) [place] % (Auto) [place] # Eos # [place] # (Auto) Eos # (Auto) Seg Neutrophils % Seg Neuts % (Manual) Baso # (Auto) Lymphocytes % (Manual) Monocytes % (Manual) Eosinophils % (Manual) Basophils % (Manual) Seg Neutrophils # Seg Neutrophils # Man Lymphocytes # (Manual) Monocytes # (Manual) Eosinophils # (Manual) Nucleated RBC % Basophils # (Manual) APTT Heparin Anti-Xa Level 0.19 L ABG pH POC ABG pO2 ABG pO2 ABG HCO3 ABG O2 Saturation ABG Base Excess POC ABG pCO2 ABG Hemoglobin ABG Oxyhemoglobin Oxyhemoglobin Sodium Potassium Chloride Carbon Dioxide BUN Creatinine 0.6 L Glucose 110 H POC Glucose Lactic Acid Calcium Phosphorus Magnesium AST ALT Lactate Dehydrogenase CK-MB (CK-2) C-Reactive Protein NT-Pro-B Natriuret Pep Total Protein Albumin Urine WBC (Auto) 12/15/19 12/15/19 12/15/19 05:53 11:50 17:26 WBC RBC Hgb Hct MCHC RDW Lymph % (Auto) [place] % (Auto) [place] # Eos # [place] # (Auto) Eos # (Auto) Seg Neutrophils % Seg Neuts % (Manual) Baso # (Auto) Lymphocytes % (Manual) Monocytes % (Manual) Eosinophils % (Manual) Basophils % (Manual) Seg Neutrophils # Seg Neutrophils # Man Lymphocytes # (Manual) Monocytes # (Manual) Eosinophils # (Manual) Nucleated RBC % Basophils # (Manual) APTT Heparin Anti-Xa Level ABG pH POC ABG pO2 ABG pO2 ABG HCO3 ABG O2 Saturation ABG Base Excess POC ABG pCO2 ABG Hemoglobin ABG Oxyhemoglobin Oxyhemoglobin Sodium Potassium Chloride Carbon Dioxide BUN Creatinine Glucose POC Glucose 119 H 132 H 128 H Lactic Acid Calcium Phosphorus Magnesium AST ALT Lactate Dehydrogenase CK-MB (CK-2) C-Reactive Protein NT-Pro-B Natriuret Pep Total Protein Albumin Urine WBC (Auto) 12/15/19 12/16/19 12/16/19 23:11 05:30 05:46 WBC RBC Hgb 8.8 L Hct 27.9 L MCHC RDW Lymph % (Auto) [place] % (Auto) [place] # Eos # [place] # (Auto) Eos # (Auto) Seg Neutrophils % Seg Neuts % (Manual) Baso # (Auto) Lymphocytes % (Manual) Monocytes % (Manual) Eosinophils % (Manual) Basophils % (Manual) Seg Neutrophils # Seg Neutrophils # Man Lymphocytes # (Manual) Monocytes # (Manual) Eosinophils # (Manual) Nucleated RBC % Basophils # (Manual) APTT Heparin Anti-Xa Level ABG pH POC ABG pO2 ABG pO2 ABG HCO3 ABG O2 Saturation ABG Base Excess POC ABG pCO2 ABG Hemoglobin ABG Oxyhemoglobin Oxyhemoglobin Sodium Potassium Chloride Carbon Dioxide BUN Creatinine Glucose POC Glucose 150 H 134 H Lactic Acid Calcium Phosphorus Magnesium AST ALT Lactate Dehydrogenase CK-MB (CK-2) C-Reactive Protein NT-Pro-B Natriuret Pep Total Protein Albumin Urine WBC (Auto) 12/16/19 12/16/19 12/16/19 05:46 05:46 11:44 WBC RBC Hgb Hct MCHC RDW Lymph % (Auto) [place] % (Auto) [place] # Eos # [place] # (Auto) Eos # (Auto) Seg Neutrophils % Seg Neuts % (Manual) Baso # (Auto) Lymphocytes % (Manual) Monocytes % (Manual) Eosinophils % (Manual) Basophils % (Manual) Seg Neutrophils # Seg Neutrophils # Man Lymphocytes # (Manual) Monocytes # (Manual) Eosinophils # (Manual) Nucleated RBC % Basophils # (Manual) APTT Heparin Anti-Xa Level 0.20 L ABG pH POC ABG pO2 ABG pO2 ABG HCO3 ABG O2 Saturation ABG Base Excess POC ABG pCO2 ABG Hemoglobin ABG Oxyhemoglobin Oxyhemoglobin Sodium Potassium Chloride Carbon Dioxide 31 H BUN Creatinine 0.5 L Glucose 147 H POC Glucose 164 H Lactic Acid Calcium Phosphorus Magnesium AST ALT Lactate Dehydrogenase CK-MB (CK-2) C-Reactive Protein NT-Pro-B Natriuret Pep Total Protein Albumin Urine WBC (Auto) 12/16/19 12/16/19 12/17/19 17:17 23:49 05:30 WBC 13.9 H RBC 3.27 L Hgb 9.4 L Hct 29.2 L MCHC RDW 16.0 H Lymph % (Auto) [place] % (Auto) 8.8 H [place] # Eos # [place] # (Auto) 1.2 H Eos # (Auto) 0.5 H Seg Neutrophils % 70.5 H Seg Neuts % (Manual) Baso # (Auto) 0.2 H Lymphocytes % (Manual) Monocytes % (Manual) Eosinophils % (Manual) Basophils % (Manual) Seg Neutrophils # 9.8 H Seg Neutrophils # Man Lymphocytes # (Manual) Monocytes # (Manual) Eosinophils # (Manual) Nucleated RBC % Basophils # (Manual) APTT Heparin Anti-Xa Level ABG pH POC ABG pO2 ABG pO2 ABG HCO3 ABG O2 Saturation ABG Base Excess POC ABG pCO2 ABG Hemoglobin ABG Oxyhemoglobin Oxyhemoglobin Sodium Potassium Chloride Carbon Dioxide BUN Creatinine Glucose POC Glucose 162 H 144 H Lactic Acid Calcium Phosphorus Magnesium AST ALT Lactate Dehydrogenase CK-MB (CK-2) C-Reactive Protein NT-Pro-B Natriuret Pep Total Protein Albumin Urine WBC (Auto) 12/17/19 12/17/19 12/17/19 05:30 06:06 11:50 WBC RBC Hgb Hct MCHC RDW Lymph % (Auto) [place] % (Auto) [place] # Eos # [place] # (Auto) Eos # (Auto) Seg Neutrophils % Seg Neuts % (Manual) Baso # (Auto) Lymphocytes % (Manual) Monocytes % (Manual) Eosinophils % (Manual) Basophils % (Manual) Seg Neutrophils # Seg Neutrophils # Man Lymphocytes # (Manual) Monocytes # (Manual) Eosinophils # (Manual) Nucleated RBC % Basophils # (Manual) APTT Heparin Anti-Xa Level ABG pH POC ABG pO2 ABG pO2 ABG HCO3 ABG O2 Saturation ABG Base Excess POC ABG pCO2 ABG Hemoglobin ABG Oxyhemoglobin Oxyhemoglobin Sodium Potassium Chloride 97.4 L Carbon Dioxide 32 H BUN Creatinine 0.5 L Glucose 135 H POC Glucose 151 H 140 H Lactic Acid Calcium Phosphorus Magnesium AST ALT Lactate Dehydrogenase CK-MB (CK-2) C-Reactive Protein NT-Pro-B Natriuret Pep Total Protein Albumin Urine WBC (Auto) 12/17/19 12/17/19 12/18/19 17:50 23:46 05:17 WBC RBC Hgb 8.8 L Hct 28.0 L MCHC RDW Lymph % (Auto) [place] % (Auto) [place] # Eos # [place] # (Auto) Eos # (Auto) Seg Neutrophils % Seg Neuts % (Manual) Baso # (Auto) Lymphocytes % (Manual) Monocytes % (Manual) Eosinophils % (Manual) Basophils % (Manual) Seg Neutrophils # Seg Neutrophils # Man Lymphocytes # (Manual) Monocytes # (Manual) Eosinophils # (Manual) Nucleated RBC % Basophils # (Manual) APTT Heparin Anti-Xa Level ABG pH POC ABG pO2 ABG pO2 ABG HCO3 ABG O2 Saturation ABG Base Excess POC ABG pCO2 ABG Hemoglobin ABG Oxyhemoglobin Oxyhemoglobin Sodium Potassium Chloride Carbon Dioxide BUN Creatinine Glucose POC Glucose 158 H 150 H Lactic Acid Calcium Phosphorus Magnesium AST ALT Lactate Dehydrogenase CK-MB (CK-2) C-Reactive Protein NT-Pro-B Natriuret Pep Total Protein Albumin Urine WBC (Auto) 12/18/19 12/18/19 12/18/19 05:17 05:49 11:12 WBC RBC Hgb Hct MCHC RDW Lymph % (Auto) [place] % (Auto) [place] # Eos # [place] # (Auto) Eos # (Auto) Seg Neutrophils % Seg Neuts % (Manual) Baso # (Auto) Lymphocytes % (Manual) Monocytes % (Manual) Eosinophils % (Manual) Basophils % (Manual) Seg Neutrophils # Seg Neutrophils # Man Lymphocytes # (Manual) Monocytes # (Manual) Eosinophils # (Manual) Nucleated RBC % Basophils # (Manual) APTT Heparin Anti-Xa Level 0.16 L ABG pH POC ABG pO2 ABG pO2 ABG HCO3 ABG O2 Saturation ABG Base Excess POC ABG pCO2 ABG Hemoglobin ABG Oxyhemoglobin Oxyhemoglobin Sodium Potassium Chloride Carbon Dioxide BUN Creatinine Glucose POC Glucose 127 H 191 H Lactic Acid Calcium Phosphorus Magnesium AST ALT Lactate Dehydrogenase CK-MB (CK-2) C-Reactive Protein NT-Pro-B Natriuret Pep Total Protein Albumin Urine WBC (Auto) 12/18/19 12/18/19 12/19/19 17:03 20:16 00:08 WBC RBC Hgb Hct MCHC RDW Lymph % (Auto) [place] % (Auto) [place] # Eos # [place] # (Auto) Eos # (Auto) Seg Neutrophils % Seg Neuts % (Manual) Baso # (Auto) Lymphocytes % (Manual) Monocytes % (Manual) Eosinophils % (Manual) Basophils % (Manual) Seg Neutrophils # Seg Neutrophils # Man Lymphocytes # (Manual) Monocytes # (Manual) Eosinophils # (Manual) Nucleated RBC % Basophils # (Manual) APTT Heparin Anti-Xa Level ABG pH POC ABG pO2 ABG pO2 ABG HCO3 ABG O2 Saturation ABG Base Excess POC ABG pCO2 ABG Hemoglobin ABG Oxyhemoglobin Oxyhemoglobin Sodium Potassium Chloride Carbon Dioxide BUN Creatinine Glucose POC Glucose 133 H 128 H 129 H Lactic Acid Calcium Phosphorus Magnesium AST ALT Lactate Dehydrogenase CK-MB (CK-2) C-Reactive Protein NT-Pro-B Natriuret Pep Total Protein Albumin Urine WBC (Auto) 12/19/19 12/19/19 12/19/19 04:45 04:45 05:35 WBC RBC Hgb Hct MCHC RDW Lymph % (Auto) [place] % (Auto) [place] # Eos # [place] # (Auto) Eos # (Auto) Seg Neutrophils % Seg Neuts % (Manual) Baso # (Auto) Lymphocytes % (Manual) Monocytes % (Manual) Eosinophils % (Manual) Basophils % (Manual) Seg Neutrophils # Seg Neutrophils # Man Lymphocytes # (Manual) Monocytes # (Manual) Eosinophils # (Manual) Nucleated RBC % Basophils # (Manual) APTT Heparin Anti-Xa Level 0.17 L ABG pH POC ABG pO2 ABG pO2 ABG HCO3 ABG O2 Saturation ABG Base Excess POC ABG pCO2 ABG Hemoglobin ABG Oxyhemoglobin Oxyhemoglobin Sodium Potassium Chloride Carbon Dioxide BUN Creatinine Glucose POC Glucose 120 H Lactic Acid Calcium Phosphorus Magnesium AST ALT Lactate Dehydrogenase 228 H CK-MB (CK-2) C-Reactive Protein NT-Pro-B Natriuret Pep Total Protein Albumin Urine WBC (Auto) 12/19/19 12/19/19 12/19/19 09:20 11:32 11:32 WBC 14.6 H RBC 3.08 L Hgb 9.0 L Hct 26.8 L MCHC RDW 15.9 H Lymph % (Auto) [place] % (Auto) [place] # Eos # [place] # (Auto) Eos # (Auto) Seg Neutrophils % Seg Neuts % (Manual) 82.0 H Baso # (Auto) Lymphocytes % (Manual) 10.0 L Monocytes % (Manual) Eosinophils % (Manual) Basophils % (Manual) Seg Neutrophils # Seg Neutrophils # Man 12.0 H Lymphocytes # (Manual) Monocytes # (Manual) 0.9 H Eosinophils # (Manual) Nucleated RBC % 1.0 H Basophils # (Manual) APTT Heparin Anti-Xa Level ABG pH 7.451 H POC ABG pO2 ABG pO2 62.6 L ABG HCO3 33.2 H ABG O2 Saturation 93.8 L ABG Base Excess 8.3 H POC ABG pCO2 ABG Hemoglobin 8.3 L ABG Oxyhemoglobin Oxyhemoglobin 91.9 L Sodium Potassium Chloride 95.0 L Carbon Dioxide 33 H BUN 22 H Creatinine 0.6 L Glucose 150 H POC Glucose Lactic Acid Calcium Phosphorus Magnesium AST ALT Lactate Dehydrogenase CK-MB (CK-2) C-Reactive Protein NT-Pro-B Natriuret Pep Total Protein 6.2 L Albumin 2.4 L Urine WBC (Auto) 12/19/19 12/19/19 12/20/19 11:56 18:17 00:09 WBC RBC Hgb Hct MCHC RDW Lymph % (Auto) [place] % (Auto) [place] # Eos # [place] # (Auto) Eos # (Auto) Seg Neutrophils % Seg Neuts % (Manual) Baso # (Auto) Lymphocytes % (Manual) Monocytes % (Manual) Eosinophils % (Manual) Basophils % (Manual) Seg Neutrophils # Seg Neutrophils # Man Lymphocytes # (Manual) Monocytes # (Manual) Eosinophils # (Manual) Nucleated RBC % Basophils # (Manual) APTT Heparin Anti-Xa Level ABG pH POC ABG pO2 ABG pO2 ABG HCO3 ABG O2 Saturation ABG Base Excess POC ABG pCO2 ABG Hemoglobin ABG Oxyhemoglobin Oxyhemoglobin Sodium Potassium Chloride Carbon Dioxide BUN Creatinine Glucose POC Glucose 156 H 156 H 155 H Lactic Acid Calcium Phosphorus Magnesium AST ALT Lactate Dehydrogenase CK-MB (CK-2) C-Reactive Protein NT-Pro-B Natriuret Pep Total Protein Albumin Urine WBC (Auto) 12/20/19 12/20/19 12/20/19 05:26 06:02 18:17 WBC RBC Hgb Hct MCHC RDW Lymph % (Auto) [place] % (Auto) [place] # Eos # [place] # (Auto) Eos # (Auto) Seg Neutrophils % Seg Neuts % (Manual) Baso # (Auto) Lymphocytes % (Manual) Monocytes % (Manual) Eosinophils % (Manual) Basophils % (Manual) Seg Neutrophils # Seg Neutrophils # Man Lymphocytes # (Manual) Monocytes # (Manual) Eosinophils # (Manual) Nucleated RBC % Basophils # (Manual) APTT Heparin Anti-Xa Level 0.19 L ABG pH POC ABG pO2 ABG pO2 ABG HCO3 ABG O2 Saturation ABG Base Excess POC ABG pCO2 ABG Hemoglobin ABG Oxyhemoglobin Oxyhemoglobin Sodium Potassium Chloride Carbon Dioxide BUN Creatinine Glucose POC Glucose 137 H 128 H Lactic Acid Calcium Phosphorus Magnesium AST ALT Lactate Dehydrogenase CK-MB (CK-2) C-Reactive Protein NT-Pro-B Natriuret Pep Total Protein Albumin Urine WBC (Auto) 12/20/19 12/21/19 12/21/19 23:34 05:31 05:31 WBC 12.7 H RBC 3.09 L Hgb 8.9 L Hct 27.4 L MCHC RDW 15.8 H Lymph % (Auto) 12.1 L [place] % (Auto) 7.8 H [place] # Eos # [place] # (Auto) 1.0 H Eos # (Auto) Seg Neutrophils % 77.1 H Seg Neuts % (Manual) Baso # (Auto) Lymphocytes % (Manual) Monocytes % (Manual) Eosinophils % (Manual) Basophils % (Manual) Seg Neutrophils # 9.8 H Seg Neutrophils # Man Lymphocytes # (Manual) Monocytes # (Manual) Eosinophils # (Manual) Nucleated RBC % Basophils # (Manual) APTT Heparin Anti-Xa Level ABG pH POC ABG pO2 ABG pO2 ABG HCO3 ABG O2 Saturation ABG Base Excess POC ABG pCO2 ABG Hemoglobin ABG Oxyhemoglobin Oxyhemoglobin Sodium Potassium Chloride 96.9 L Carbon Dioxide 37 H BUN 27 H Creatinine 0.7 L Glucose 140 H POC Glucose 145 H Lactic Acid Calcium Phosphorus Magnesium AST ALT Lactate Dehydrogenase CK-MB (CK-2) C-Reactive Protein NT-Pro-B Natriuret Pep Total Protein Albumin Urine WBC (Auto) 12/21/19 12/21/19 12/21/19 05:38 10:13 11:51 WBC RBC Hgb Hct MCHC RDW Lymph % (Auto) [place] % (Auto) [place] # Eos # [place] # (Auto) Eos # (Auto) Seg Neutrophils % Seg Neuts % (Manual) Baso # (Auto) Lymphocytes % (Manual) Monocytes % (Manual) Eosinophils % (Manual) Basophils % (Manual) Seg Neutrophils # Seg Neutrophils # Man Lymphocytes # (Manual) Monocytes # (Manual) Eosinophils # (Manual) Nucleated RBC % Basophils # (Manual) APTT 23.9 L Heparin Anti-Xa Level < 0.10 L ABG pH POC ABG pO2 ABG pO2 ABG HCO3 ABG O2 Saturation ABG Base Excess POC ABG pCO2 ABG Hemoglobin ABG Oxyhemoglobin Oxyhemoglobin Sodium Potassium Chloride Carbon Dioxide BUN Creatinine Glucose POC Glucose 151 H 145 H Lactic Acid Calcium Phosphorus Magnesium AST ALT Lactate Dehydrogenase CK-MB (CK-2) C-Reactive Protein NT-Pro-B Natriuret Pep Total Protein Albumin Urine WBC (Auto) 12/21/19 12/22/19 12/22/19 17:16 00:01 01:33 WBC RBC Hgb Hct MCHC RDW Lymph % (Auto) [place] % (Auto) [place] # Eos # [place] # (Auto) Eos # (Auto) Seg Neutrophils % Seg Neuts % (Manual) Baso # (Auto) Lymphocytes % (Manual) Monocytes % (Manual) Eosinophils % (Manual) Basophils % (Manual) Seg Neutrophils # Seg Neutrophils # Man Lymphocytes # (Manual) Monocytes # (Manual) Eosinophils # (Manual) Nucleated RBC % Basophils # (Manual) APTT Heparin Anti-Xa Level 0.10 L ABG pH POC ABG pO2 ABG pO2 ABG HCO3 ABG O2 Saturation ABG Base Excess POC ABG pCO2 ABG Hemoglobin ABG Oxyhemoglobin Oxyhemoglobin Sodium Potassium Chloride Carbon Dioxide BUN Creatinine Glucose POC Glucose 167 H 179 H Lactic Acid Calcium Phosphorus Magnesium AST ALT Lactate Dehydrogenase CK-MB (CK-2) C-Reactive Protein NT-Pro-B Natriuret Pep Total Protein Albumin Urine WBC (Auto) 12/22/19 12/22/19 12/22/19 03:22 05:10 05:10 WBC 13.8 H RBC 3.20 L Hgb 8.9 L Hct 28.1 L MCHC RDW 15.9 H Lymph % (Auto) [place] % (Auto) [place] # Eos # [place] # (Auto) Eos # (Auto) Seg Neutrophils % Seg Neuts % (Manual) Baso # (Auto) Lymphocytes % (Manual) Monocytes % (Manual) Eosinophils % (Manual) Basophils % (Manual) Seg Neutrophils # Seg Neutrophils # Man Lymphocytes # (Manual) Monocytes # (Manual) Eosinophils # (Manual) Nucleated RBC % Basophils # (Manual) APTT Heparin Anti-Xa Level ABG pH POC ABG pO2 52.3 L ABG pO2 ABG HCO3 ABG O2 Saturation ABG Base Excess POC ABG pCO2 52.9 H ABG Hemoglobin 10.7 L ABG Oxyhemoglobin 84 L Oxyhemoglobin Sodium Potassium Chloride 96.6 L Carbon Dioxide BUN 25 H Creatinine 0.7 L Glucose 129 H POC Glucose Lactic Acid Calcium Phosphorus Magnesium AST ALT Lactate Dehydrogenase CK-MB (CK-2) C-Reactive Protein NT-Pro-B Natriuret Pep Total Protein Albumin Urine WBC (Auto) 12/22/19 12/22/19 12/22/19 05:18 12:32 12:43 WBC RBC Hgb Hct MCHC RDW Lymph % (Auto) [place] % (Auto) [place] # Eos # [place] # (Auto) Eos # (Auto) Seg Neutrophils % Seg Neuts % (Manual) Baso # (Auto) Lymphocytes % (Manual) Monocytes % (Manual) Eosinophils % (Manual) Basophils % (Manual) Seg Neutrophils # Seg Neutrophils # Man Lymphocytes # (Manual) Monocytes # (Manual) Eosinophils # (Manual) Nucleated RBC % Basophils # (Manual) APTT Heparin Anti-Xa Level 0.18 L ABG pH POC ABG pO2 ABG pO2 ABG HCO3 ABG O2 Saturation ABG Base Excess POC ABG pCO2 ABG Hemoglobin ABG Oxyhemoglobin Oxyhemoglobin Sodium Potassium Chloride Carbon Dioxide BUN Creatinine Glucose POC Glucose 131 H 208 H Lactic Acid Calcium Phosphorus Magnesium AST ALT Lactate Dehydrogenase CK-MB (CK-2) C-Reactive Protein NT-Pro-B Natriuret Pep Total Protein Albumin Urine WBC (Auto) 12/22/19 12/22/19 12/23/19 17:44 23:20 03:51 WBC 15.2 H RBC 3.43 L Hgb 9.6 L Hct 30.3 L MCHC RDW 15.9 H Lymph % (Auto) [place] % (Auto) [place] # Eos # [place] # (Auto) Eos # (Auto) Seg Neutrophils % Seg Neuts % (Manual) Baso # (Auto) Lymphocytes % (Manual) Monocytes % (Manual) Eosinophils % (Manual) Basophils % (Manual) Seg Neutrophils # Seg Neutrophils # Man Lymphocytes # (Manual) Monocytes # (Manual) Eosinophils # (Manual) Nucleated RBC % Basophils # (Manual) APTT Heparin Anti-Xa Level ABG pH POC ABG pO2 ABG pO2 ABG HCO3 ABG O2 Saturation ABG Base Excess POC ABG pCO2 ABG Hemoglobin ABG Oxyhemoglobin Oxyhemoglobin Sodium Potassium Chloride Carbon Dioxide BUN Creatinine Glucose POC Glucose 209 H 119 H Lactic Acid Calcium Phosphorus Magnesium AST ALT Lactate Dehydrogenase CK-MB (CK-2) C-Reactive Protein NT-Pro-B Natriuret Pep Total Protein Albumin Urine WBC (Auto) 12/23/19 12/23/19 12/23/19 03:51 05:31 12:09 WBC RBC Hgb Hct MCHC RDW Lymph % (Auto) [place] % (Auto) [place] # Eos # [place] # (Auto) Eos # (Auto) Seg Neutrophils % Seg Neuts % (Manual) Baso # (Auto) Lymphocytes % (Manual) Monocytes % (Manual) Eosinophils % (Manual) Basophils % (Manual) Seg Neutrophils # Seg Neutrophils # Man Lymphocytes # (Manual) Monocytes # (Manual) Eosinophils # (Manual) Nucleated RBC % Basophils # (Manual) APTT Heparin Anti-Xa Level ABG pH POC ABG pO2 ABG pO2 ABG HCO3 ABG O2 Saturation ABG Base Excess POC ABG pCO2 ABG Hemoglobin ABG Oxyhemoglobin Oxyhemoglobin Sodium Potassium Chloride 97.2 L Carbon Dioxide 31 H BUN 23 H Creatinine 0.6 L Glucose 153 H POC Glucose 149 H 144 H Lactic Acid Calcium Phosphorus Magnesium AST ALT Lactate Dehydrogenase CK-MB (CK-2) C-Reactive Protein NT-Pro-B Natriuret Pep Total Protein Albumin Urine WBC (Auto) 12/23/19 12/23/19 12/23/19 15:30 17:49 23:31 WBC RBC Hgb Hct MCHC RDW Lymph % (Auto) [place] % (Auto) [place] # Eos # [place] # (Auto) Eos # (Auto) Seg Neutrophils % Seg Neuts % (Manual) Baso # (Auto) Lymphocytes % (Manual) Monocytes % (Manual) Eosinophils % (Manual) Basophils % (Manual) Seg Neutrophils # Seg Neutrophils # Man Lymphocytes # (Manual) Monocytes # (Manual) Eosinophils # (Manual) Nucleated RBC % Basophils # (Manual) APTT Heparin Anti-Xa Level 0.21 L ABG pH POC ABG pO2 ABG pO2 ABG HCO3 ABG O2 Saturation ABG Base Excess POC ABG pCO2 ABG Hemoglobin ABG Oxyhemoglobin Oxyhemoglobin Sodium Potassium Chloride Carbon Dioxide BUN Creatinine Glucose POC Glucose 192 H 151 H Lactic Acid Calcium Phosphorus Magnesium AST ALT Lactate Dehydrogenase CK-MB (CK-2) C-Reactive Protein NT-Pro-B Natriuret Pep Total Protein Albumin Urine WBC (Auto) 12/24/19 05:34 WBC RBC Hgb Hct MCHC RDW Lymph % (Auto) [place] % (Auto) [place] # Eos # [place] # (Auto) Eos # (Auto) Seg Neutrophils % Seg Neuts % (Manual) Baso # (Auto) Lymphocytes % (Manual) Monocytes % (Manual) Eosinophils % (Manual) Basophils % (Manual) Seg Neutrophils # Seg Neutrophils # Man Lymphocytes # (Manual) Monocytes # (Manual) Eosinophils # (Manual) Nucleated RBC % Basophils # (Manual) APTT Heparin Anti-Xa Level ABG pH POC ABG pO2 ABG pO2 ABG HCO3 ABG O2 Saturation ABG Base Excess POC ABG pCO2 ABG Hemoglobin ABG Oxyhemoglobin Oxyhemoglobin Sodium Potassium Chloride Carbon Dioxide BUN Creatinine Glucose POC Glucose 145 H Lactic Acid Calcium Phosphorus Magnesium AST ALT Lactate Dehydrogenase CK-MB (CK-2) C-Reactive Protein NT-Pro-B Natriuret Pep Total Protein Albumin Urine WBC (Auto) Chest x-ray: image reviewed (Persitent alveolar infiltrates) Allied health notes reviewed: nursing
--- NOTE | 2019-12-24 11:35 | Progress Note ---
Assessment and Plan Cultures: Blood culture 12/02/2019 negative Blood culture 11/24/2019 negative Urine culture 11/24/2019 negative COVID-19 negative x2 12/04/2019 resp culture: PsA 12/06/2019 blood cultures: No growth today MRSA PCR negative A/P: 64-year-old male past medical history hypertension, COPD, CAD, CHF with reduced ejection fraction admitted with acute hypoxic respiratory failure likely secondary to pneumonia #Sepsis: With intermittent low-grade fever, likely due to PE/DVT. Completed antibiotics for pneumonia (10-day cefepime course on 12/15/2019). #Acute hypoxemic respiratory failure: Likely secondary to pneumonia/PE, COVID-19 testing negative x 2. Remains intubated. #Bilateral pneumonia: COVID-19 negative twice. Culture grew Pseudomonas, pansensitive. Completed abx. Repeat chest x-ray with persistent right base opacity, concerning for possible effusion. CT showed PE. US guided thoracentesis was planned 12/21/2019 but showed minimal effusion, so not done. #CHF: per primary team #COPD: per pulmonary #PE/right DVT: on anticoagulation per primary. Recs: -ordered WBC and procalcitonin in AM -if febrile >101.5F, obtain blood and ET aspirate cultures Chet Saha MD, FACP [facility] ([facility] C: [phone] O: [phone] F: [phone] Subjective Date of service: 12/24/19 Principal diagnosis: Ac hypoxemic resp failure; Pneumonia; PUI COVID-19; CHF; COPD; HTN Interval history: No fever. Remains intubated, but awake on the vent. Objective - Exam Narrative Exam: Physical Exam: Constitutional: opens eyes, intubated, on the vent Head, Ears, Nose: Normocephalic, atraumatic. External ears, nose normal Eyes: Conjunctivae/corneas clear. No icterus. No ptosis. Neck: intubated Oral: intubated Cardiovascular: S1, S2 + Respiratory: AE fair bilaterally and equal GI: Soft, bowel sounds + Musculoskeletal: No pedal edema, no cyanosis. Skin: No rash or abscess Hem/Lymphatic: No palpable cervical or supraclavicular nodes. No lymphangitis Psych: no agitation Neurological: follows basic commands, intubated, on the vent, exam limited - Constitutional Vitals: Vital Signs Temp Pulse Resp BP Pulse Ox 97.6 F 85 23 101/71 96 12/24/19 08:00 12/24/19 11:00 12/24/19 08:10 12/24/19 11:00 12/24/19 11:00 Temperature -Last 24 Hours Temperature 97.6 F Temperature 98.9 F Temperature 98.8 F Temperature 98.6 F Temperature 98.2 F Temperature 98.6 F - Labs CBC & Chem 7: 12/23/19 03:51 12/23/19 03:51 Labs: Abnormal lab results 12/23/19 12/23/19 12/23/19 Range/Units 12:09 15:30 17:49 Heparin Anti-Xa Level 0.21 L (0.3-0.7) U.I./ml POC Glucose 144 H 192 H (70-105) 12/23/19 12/24/19 Range/Units 23:31 05:34 Heparin Anti-Xa Level (0.3-0.7) U.I./ml POC Glucose 151 H 145 H (70-105)
--- NOTE | 2019-12-24 11:50 | Progress Note ---
Assessment and Plan Transient Afib after CPAP trial currently in sinus rhythm Ischemic Cardiomyopathy, resolving re-echo this presentation reports an LVEF 40-45%. echo 08/2018: decreased LVEF 20-25%. Hx of CAD [facility] 12/2018: mild in-stent restenosis. No significant residual disease. Multifocal pneumonia with intermittent fevers negative COVID-19 test x 2 Respiratory failure Acute PE/DVT on IV heparin Recommendations: Continue amiodarone and metoprolol for suppression of paroxysmal atrial fibrillation. Otherwise, conservative cardiac management. We will follow intermittently. Subjective Date of service: 12/24/19 Principal diagnosis: Ac hypoxemic resp failure; Pneumonia; PUI COVID-19; CHF; COPD; HTN Interval history: Remains intubated on the vent. Stable sinus rhythm on telemetry. Objective Vital Signs Temp Pulse Pulse Resp BP Pulse Ox 12/24/19 11:00 85 101/71 96 12/24/19 10:31 83 103/64 97 12/24/19 10:00 79 103/64 96 12/24/19 09:31 90 95/68 96 12/24/19 09:00 82 93/69 92 12/24/19 08:31 93 H 95/68 95 12/24/19 08:10 87 23 95/68 98 12/24/19 08:00 97.6 F 82 83 95/68 96 12/24/19 07:31 84 98 12/24/19 07:00 82 89/71 97 12/24/19 06:31 84 89/63 96 12/24/19 06:00 77 89/63 12/24/19 05:31 78 105/73 95 12/24/19 05:00 84 105/73 93 12/24/19 04:31 92 H 110/76 98 12/24/19 04:12 78 110/76 97 12/24/19 04:00 98.9 F 82 91 H 110/76 97 12/24/19 03:31 79 98/71 97 12/24/19 03:00 76 98/71 97 12/24/19 02:31 74 95/74 94 12/24/19 02:00 85 95/74 92 12/24/19 01:31 112 H 93/75 91 12/24/19 01:01 110 H 107/72 94 12/24/19 00:31 93 H 107/72 97 12/24/19 00:00 98.8 F 95 H 91 H 93/75 93 12/23/19 23:31 76 127/105 98 12/23/19 23:12 91 H 127/105 97 12/23/19 23:01 100 H 119/83 94 12/23/19 22:31 85 119/83 96 12/23/19 22:00 92 H 119/83 97 12/23/19 21:32 93 H 136/95 12/23/19 21:31 92 H 112/79 97 12/23/19 21:00 99 H 136/95 95 12/23/19 20:31 85 127/87 97 12/23/19 20:00 98.6 F 89 89 112/79 94 12/23/19 19:46 87 127/87 96 12/23/19 19:31 84 127/87 96 12/23/19 19:00 96 H 127/87 12/23/19 18:31 102 H 135/90 89 12/23/19 18:00 89 109/74 95 12/23/19 17:31 87 135/90 95 12/23/19 17:00 107 H 135/90 95 12/23/19 16:52 111 H 110/73 96 12/23/19 16:31 106 H 129/105 97 12/23/19 16:00 98.2 F 88 110/73 96 12/23/19 15:53 89 98 12/23/19 15:31 85 129/105 97 12/23/19 15:00 91 H 129/105 97 12/23/19 14:41 86 137/92 12/23/19 14:31 80 130/83 99 12/23/19 14:00 86 137/92 98 12/23/19 13:31 87 130/83 98 12/23/19 13:00 84 130/83 93 12/23/19 12:31 102 H 111/77 97 12/23/19 12:25 100 H 111/77 99 12/23/19 12:01 103 H 130/103 97 12/23/19 12:00 98.6 F - Physical Examination General: Other (intubated on the vent) Cardiac: Positive: Reg Rate and Rhythm - Allied health notes Allied health notes reviewed: nursing
[2019-12-24] MEDS: QUEtiapine 200 MG TAB PO SCH ×2 (13:26→22:27)
--- NOTE | 2019-12-24 16:43 | Progress Note ---
Assessment and Plan -Acute LLL PE -Acute RLE DVT -Persistent fevers; secondary to sepsis and acute PE/DVT -Severe sepsis; secondary to bilateral pneumonia, persistent fevers -Acute hypoxemic respiratory failure, on vent unable to wean -Bilateral pneumonia, community acquired, -Aspiration Pneumonia -Sustained SVT, on amiodarone -Acute on chronic systolic congestive heart failure -History of cerebrovascular accident. -Tobacco use disorder -Alcohol abuse with DT -Acute chronic obstructive pulmonary disease exacerbation. -Hypertension and hypertensive urgency at presentation. -History of arthritis. -Paroxysmal atrial fibrillation -Leukocytosis with possible sepsis. -Lactic acidosis. -Bleeding from ET tube -Oropharyngeal dysphagia -S/P Knee surgery -History of peptic Ulcer Surgery -DVT prophylaxis COVID-19 test; 11/24/2019; negative 11/26/2019; negative Plan Continue ventilatory support Wean as tolerated as per critical care Completed abx, ID following Aspiration precautions Continue amiodarone and metoprolol for suppression of paroxysmal atrial fibrillation. Anticoagulation currently with intravenous heparin. thoracentesis cancelled as not much fluid to drawn May need trach and PEG DVT/GI prophy Heparin/Protonix Plan of care reviewed with the patient's nurse Closely monitor the patient and adjust management as needed The high probability of a clinically significant, sudden or life threatening deterioration of the [Respiratory, cardiovascular & neurological] system(s) required my full and direct attention, intervention and personal management. The aggregate critical care time was [33] minutes without overlap. Time includes spent on [x] Data Review and interpretation [x] Patient assessment and monitoring of vital signs [x] Documentation [x] Medication orders and management Brief History Patient is a 64-year-old male with known history of hypertension, COPD, history of coronary artery disease, CHF with ejection fraction of 20 to 25% in August 2018 presenting to the emergency room via EMS complaining of shortness of breath. Patient was found to be hypoxic and in respiratory distress. Patient was placed on CPAP in route to the hospital. Oxygen saturation was said to be 88%. Started on Solu-Medrol, Lasix and magnesium in ED, patient was also found to be lethargic with an oxygen saturation of about 91% on CPAP. He was subsequently intubated. Work-up in the emergency room including chest x-ray reveals bilateral pneumonia. He had an elevated white count of 14 and also had an elevated BNP. Patient to be admitted to the ICU and placed on empiric IV antibiotics for pneumonia. He will also be tested positive for COVID-19 and placed on isolation precautions. Rmains intubated on ventilatory support, sputum cultures positive for Pseudomonas, ID changed antibiotics to cefepime and Vanco. 11/25: Leukocytosis improving. Continue current management anticipate extubation possible today. 11/26. Still intubated. Failed SBT yesterday. Repeat COVID-19 test is negative. 11/27. CT head ordered for possible neuro status change is negative. More responsive as the day progressed as per RN. Chest xray today shows interval improvement. He is still on antibiotics - will complete regimen today. 11/28: Considering difficult extubation and severe cardiomyopathy, will obtain cardiology consult. Aspiration precautions, tube feeds held, continue antibiotics. 11/29: Still with intermittent fever but improving imaging, continue diuresis. 11/30; Extremely agitated when placed on PSV- SVT, hypertension. Patiet acknowledged that he drinks. IV Ativan given, CIWA protocol initiated. 12 lead ordered showed SVT, one dose of amiodarone ordered. continue to follow up cardiology recommendation 12/01: Patient remains on mechanical ventilation, getting SBT trial. Remains in SVT, started on amiodarone drip by cardiology. 12/02; patient is on mechanical ventilation and on spontaneous breathing trial. Cardiology started the patient on PO amiodarone. Patient is on cefepime. 12/03: patient is on mechanical ventilation. Cardiology started the patient on PO amiodarone for SVT. Patient is on cefepime, no fever overnight. 12/04: Patient is sedated and on mechanical ventilation. Patient had fever yesterday afternoon 102.3, ID changed his cefepime to meropenem. Heart rate is controlled, cardiology is following. Patient has paroxysmal atrial fibrillation and on amiodarone and metoprolol, subcu heparin for anticoagulation and will need oral anticoagulation once stable. 12/05: Sputum cultures positive for Pseudomonas, ID following 12/06; patient is febrile T-max 24 hours 102 F ,ID change antibiotics to cefepime and Vancomycin 12/07: resumed care. Na 149 today, start on 1/2 NS. cont current care 12/08: remains in a stable sinus rhythm and stable blood pressure, continue supportive care. wean off vent as tolerated. persistent fever - ordered CTA chest 12/09: noted bloody discharges from ET tube last night. CTA and LE venous doppler positive for acute PE and DVT. resume heparin drip, consult vascular for possible EKOS/ IVC filter. monitor h/h. cont SBT trial, wean off vent as tolerated. called but no answer 12/10: cont heparin drip for acute PE and DVT, follow vascular recommendation. monitor h/h, wean off vent as tolerated 12/11: o/n had bleeding from ET tube, cont to monitor h/h. vascular recommending medical Mx. called ; Nicolle Araiza [phone]. 12/12: H&H remained stable, patient on heparin drip. Discussed with yesterday. Discussed with critical care attending. Patient not tolerating SBT trial. Continue to wean off from vent as tolerated, follow clinically. Tolerating tube feeding 12/13: Continue heparin drip, wean off from vent as tolerated. Discussed with pulmonary attending if no improvement by the end of 3 weeks of intubation patient may need trach and PEG. Continue to provide supportive care, follow CBC and BMP. 12/14: Stop cefepime today, wean off from vent as tolerated. cont Heparin infusio n, while monitoring for bleeding 12/15: Patient is not tolerating SBT trial, becoming apnic on CPAP. May need to place on trach and PEG. Continue heparin drip, monitor off antibiotics 12/16. Still maintained on vent. May need PEG and trach as her has been failed SBTs 12/17. Had low UO overnight. Started on tamsulosin. May need PEG and trach - defer to pulm. 12/18-. Plan for US thoracentesis to help with weaning. Remains on heparin drip for VTE. 12/20. Discussed with spouse today. He will get thoracentesis today. INR/PTT ordered. Heparin drip held. 12/21: planned for trach and PEG, cont supportive care, thoracentesis cancelled 12/22: cont supportive care, wean off from vent, daily SBT 12/23: tolerating SBT, possible extubation soon. cont supportive care Subjective Date of service: 12/24/19 Principal diagnosis: Ac hypoxemic resp failure; Pneumonia; PUI COVID-19; CHF; COPD; HTN Interval history: Patient seen and examined Patient intubated on mechanical ventilation Discussed with RN at the bedside H/H STABLE, patient remains on heparin drip on SBT trial Objective - Exam Narrative Exam: General appearance: Present: well-nourished, other (Intubated), opens eyes to names and follows minor command - EENT Eyes: Present: PERRL, EOM intact. Absent: scleral icterus ENT: clear oral mucosa, dentition normal - Neck Neck: Present: supple, normal ROM - Respiratory Respiratory effort: normal, mechanical ventilation Respiratory: bilateral: rales - Cardiovascular Rhythm: regular Heart Sounds: Present: S1 & S2, tachycardic. Absent: gallop, systolic murmur, diastolic murmur, rub - Extremities Extremities: no ischemia, pulses intact, pulses symmetrical, No edema, Full ROM Peripheral Pulses: within normal limits - Abdominal General gastrointestinal: Present: soft, non-tender, non-distended, normal bowel sounds. Absent: mass - Integumentary Integumentary: Present: clear, warm, dry. Absent: rash - Musculoskeletal Musculoskeletal: no joint swelling - Psychiatric Psychiatric: sedated Neurology: no focal deficits - Constitutional Vitals: Vital Signs - 12hr 12/24/19 12/24/19 12/24/19 05:00 05:31 06:00 Temperature Pulse Rate 84 78 77 Pulse Rate [ From Monitor] Respiratory Rate Blood Pressure 105/73 105/73 89/63 O2 Sat by Pulse 93 95 Oximetry 12/24/19 12/24/19 12/24/19 06:31 07:00 07:31 Temperature Pulse Rate 84 82 84 Pulse Rate [ From Monitor] Respiratory Rate Blood Pressure 89/63 89/71 O2 Sat by Pulse 96 97 98 Oximetry 12/24/19 12/24/19 12/24/19 08:00 08:10 08:31 Temperature 97.6 F Pulse Rate 83 87 93 H Pulse Rate [ 83 From Monitor] Respiratory 23 Rate Blood Pressure 95/68 95/68 95/68 O2 Sat by Pulse 96 98 95 Oximetry 12/24/19 12/24/19 12/24/19 09:00 09:31 10:00 Temperature Pulse Rate 82 90 79 Pulse Rate [ From Monitor] Respiratory Rate Blood Pressure 93/69 95/68 103/64 O2 Sat by Pulse 92 96 96 Oximetry 12/24/19 12/24/19 12/24/19 10:31 11:00 11:31 Temperature Pulse Rate 83 85 87 Pulse Rate [ From Monitor] Respiratory Rate Blood Pressure 103/64 101/71 101/71 O2 Sat by Pulse 97 96 97 Oximetry 12/24/19 12/24/19 12/24/19 12:00 12:13 12:31 Temperature 97.8 F Pulse Rate 82 85 86 Pulse Rate [ 83 From Monitor] Respiratory Rate Blood Pressure 102/66 101/71 102/66 O2 Sat by Pulse 98 96 97 Oximetry 12/24/19 12/24/19 12/24/19 13:00 13:27 13:31 Temperature Pulse Rate 97 H 81 Pulse Rate [ From Monitor] Respiratory Rate Blood Pressure 107/71 107/71 107/71 O2 Sat by Pulse 92 96 Oximetry 12/24/19 14:01 Temperature Pulse Rate 92 H Pulse Rate [ From Monitor] Respiratory Rate Blood Pressure 107/71 O2 Sat by Pulse 96 Oximetry - Labs CBC & Chem 7: 12/23/19 03:51 12/23/19 03:51 Labs: Abnormal lab results 12/23/19 12/23/19 12/23/19 Range/Units 12:09 17:49 23:31 POC Glucose 144 H 192 H 151 H (70-105) 12/24/19 12/24/19 Range/Units 05:34 12:13 POC Glucose 145 H 124 H (70-105) HEART Score - HEART Score Troponin: Troponin T < 0.010 ng/mL (0.00-0.029) 11/24/19 02:53
[2019-12-24] MEDS: POLYETHYLENE GLYCOL 3350 17 GM POWDER PO SCH (21:57)
[2019-12-24] MEDS: TAMSULOSIN 0.4 MG CAP PO SCH (22:27)
[2019-12-25] MEDS: INSULIN LISPRO 100 UNIT/ML VIAL 3 mL SUB-Q SCH ×4 (00:24→18:39)
[2019-12-25] MEDS: METOPROLOL TARTRATE 50 MG TAB PO SCH ×3 (06:13→21:38)
[2019-12-25 06:25] LABS: Basophils # (Auto) 0.1 K/mm3 (0.0-0.1); Basophils % (Auto) 0.9 % (0.0-1.8); Eosinophils # (Auto) 0.3 K/mm3 (0.0-0.4); Eosinophils % (Auto) 2.2 % (0.0-4.3); Hematocrit 28.8 % (35.5-45.6); Hemoglobin 9.1 gm/dl (11.8-15.2); Lymphocytes # (Auto) 1.7 K/mm3 (1.2-5.4); Lymphocytes % (Auto) 13.6 % (13.4-35.0); Mean Corpuscular HGB Conc 32 % (32-34); Mean Corpuscular Volume 87 fl (84-94); Monocytes % (Auto) 7.8 % (0.0-7.3); Platelet Count 273 K/mm3 (140-440); Red Cell Distribution Width 16.4 % (13.2-15.2)
[2019-12-25 06:44] LABS: Blood Urea Nitrogen 27 mg/dL (9-20); Calcium 9.7 mg/dL (8.4-10.2); Hemolysis Index 4
[2019-12-25 06:46] LABS: BUN/Creatinine Ratio 45
--- NOTE | 2019-12-25 08:51 | Progress Note ---
Assessment and Plan - Patient Problems (1) Acute respiratory failure Current Visit: Yes Status: Acute (2) Bilateral pneumonia Current Visit: Yes Status: Acute (3) COPD exacerbation Current Visit: No Status: Acute (4) Hypertension Current Visit: No Status: Acute Qualifiers: Hypertension type: essential hypertension Qualified Code(s): I10 - Essential (primary) hypertension (5) Cardiomyopathy Current Visit: Yes Status: Acute (6) Paroxysmal atrial fibrillation Current Visit: Yes Status: Acute Subjective Date of service: 12/25/19 Principal diagnosis: Ac hypoxemic resp failure; Pneumonia; PUI COVID-19; CHF; COPD; HTN Interval history: PT ON VENT',,,alert Objective Vital Signs Temp Pulse Pulse BP Pulse Ox 12/25/19 08:14 83 103/73 97 12/25/19 06:13 90 12/25/19 06:00 84 105/78 12/25/19 05:31 90 108/79 98 12/25/19 05:00 84 108/79 100 12/25/19 04:31 86 106/82 97 12/25/19 04:05 84 106/81 97 12/25/19 04:00 87 87 106/81 97 12/25/19 03:31 84 106/82 98 12/25/19 03:23 97.5 F L 12/25/19 03:00 84 106/82 100 12/25/19 02:31 84 101/75 98 12/25/19 02:00 78 101/75 98 12/25/19 01:31 74 95/71 97 12/25/19 01:00 73 95/71 97 12/25/19 00:31 61 96/64 95 12/25/19 00:00 63 82 96/64 89 12/24/19 23:46 70 139/94 97 12/24/19 23:32 99.1 F 12/24/19 23:31 83 134/83 96 12/24/19 23:05 109 H 139/94 98 12/24/19 23:01 117 H 139/94 92 12/24/19 22:40 131 H 134/83 98 12/24/19 22:31 104 H 134/83 87 12/24/19 22:01 104 H 134/83 95 12/24/19 21:31 99 H 103/71 96 12/24/19 21:00 89 103/71 98 12/24/19 20:31 91 H 110/70 96 12/24/19 20:00 98.9 F 88 89 110/70 89 12/24/19 19:44 82 107/74 82 L 12/24/19 19:31 89 107/74 97 12/24/19 19:01 97 H 107/74 91 12/24/19 18:31 90 97/64 97 12/24/19 18:00 85 97/64 12/24/19 17:31 87 98/70 98 12/24/19 17:00 89 98/70 94 12/24/19 16:31 91 H 109/67 97 12/24/19 16:25 93 H 109/67 100 12/24/19 16:01 101 H 107/72 95 12/24/19 16:00 98.1 F 83 95 12/24/19 15:31 87 107/72 98 12/24/19 15:00 89 107/72 98 12/24/19 14:31 86 100/79 98 12/24/19 14:01 92 H 107/71 96 12/24/19 13:31 81 107/71 96 12/24/19 13:27 97 H 107/71 12/24/19 13:00 107/71 92 12/24/19 12:31 86 102/66 97 12/24/19 12:13 85 101/71 96 12/24/19 12:00 97.8 F 82 83 102/66 98 12/24/19 11:31 87 101/71 97 12/24/19 11:00 85 101/71 96 12/24/19 10:31 83 103/64 97 12/24/19 10:00 79 103/64 96 12/24/19 09:31 90 95/68 96 12/24/19 09:00 82 93/69 92 - Physical Examination General: Other (intubated on the vent) HEENT: Positive: PERRL Neck: Positive: neck supple Cardiac: Positive: Reg Rate and Rhythm Lungs: Positive: Rhonchi Neuro: Positive: Other (Intubated ,alert) Abdomen: Positive: Soft Skin: Positive: Clear Extremities: Absent: edema - Labs and Meds CBC 12/25/19 Range/Units 04:18 WBC 12.9 H (4.5-11.0) K/mm3 RBC 3.30 L (3.65-5.03) M/mm3 Hgb 9.1 L (11.8-15.2) gm/dl Hct 28.8 L (35.5-45.6) % Plt Count 273 (140-440) K/mm3 Lymph # (Auto) 1.7 (1.2-5.4) K/mm3 [place] # (Auto) 1.0 H (0.0-0.8) K/mm3 Eos # (Auto) 0.3 (0.0-0.4) K/mm3 Baso # (Auto) 0.1 (0.0-0.1) K/mm3 Comprehensive Metabolic Panel 12/25/19 Range/Units 04:18 Sodium 142 (137-145) mmol/L Potassium 4.1 (3.6-5.0) mmol/L Chloride 98.8 (98-107) mmol/L Carbon Dioxide 33 H (22-30) mmol/L BUN 27 H (9-20) mg/dL Creatinine 0.6 L (0.8-1.3) mg/dL Glucose 132 H (75-100) mg/dL Calcium 9.7 (8.4-10.2) mg/dL - Allied health notes Allied health notes reviewed: nursing
[2019-12-25] MEDS: QUEtiapine 200 MG TAB PO SCH ×2 (09:10→21:38)
[2019-12-25] MEDS: DOCUSATE SODIUM 100 MG/10 ML ORAL LIQD FEEDTUBE SCH ×2 (09:11→21:25)
[2019-12-25] MEDS: FAMOTIDINE 20 MG TAB PO SCH ×2 (09:11→21:38)
[2019-12-25] MEDS: AMIODARONE 200 MG TAB PO SCH ×2 (09:11→21:37)
[2019-12-25] MEDS: fentaNYL 25 MCG/HR PATCH 72HR TD SCH (09:12)
[2019-12-25] MEDS: HEPARIN/ 0.45% NACL DRIP 25,000 UNIT/500 ML BAG IV SCH (09:14)
--- NOTE | 2019-12-25 11:11 | Progress Note ---
Assessment and Plan Acute hypoxemic respiratory failure Bilateral pneumonia, community acquired. Acute congestive heart failure exacerbation. History of cerebrovascular accident. Acute chronic obstructive pulmonary disease exacerbation. Hypertension and hypertensive urgency at presentation. History of arthritis. Oropharyngeal dysphagia Right Lext DVT Pulmonary embolism SBTs as tolerated Bowel regimen Monitor off antibiotics, trend WCC and temperature curve Needs trach/PEG placement Gentle diuretics as tolerated by renal function and hemodynamics- give a dose of Furosemide today - continue to monitor renal function, hemodynamics and electrolyte profile - continue to wean oxygen for O2 sats > 90% - continue bronchodilators with pulmonary hygiene per RT - VAP bundle addressed (Aspiration precautions, HOB >40) - continue to wean per pulmonary driven protocols - continue prn analgesia per CPOT score - follow clinically re: fever curves / trend WBC - Avoid delirium (no benzodiazepines if they can be avoided) - Enteral nutrition at goal rate as tolerated - continue accuchecks with glycemic control per SSI for target blood glucose go al of 140-180 mg/dL while critically ill; Avoid hypoglycemia - continue VTE prophylaxis with Heparin therapeutic dosing for PE/DVT - continue stress ulcer prophylaxis with Famotidine BID - continue mobility protocols for pressure ulcer prophylaxis - continue fall precautions - continue wound care management per RN / WCT - Supportive transfusions as indicated to keep HgB>7g/dL - Continue to monitor neurologic function - Continue chronic home medications as clinically indicated - Continue all supportive care CONDITION: CRITICAL PROGNOSIS: GUARDED CODE STATUS: FULL CODE The high probability of a clinically significant, sudden or life threatening deterioration of the [Respiratory, cardiovascular & neurological] system(s) required my full and direct attention, intervention and personal management. The aggregate critical care time was [33] minutes without overlap. Time includes spent on [x] Data Review and interpretation [x] Patient assessment and monitoring of vital signs [x] Documentation [x] Medication orders and management Subjective Date of service: 12/25/19 Principal diagnosis: Ac hypoxemic resp failure; Pneumonia; PUI COVID-19; CHF; COPD; HTN Interval history: Patient is seen today for: Acute hypoxemic respiratory failure; Adan. Pneumonia (CAP); PUI COVID-19 infection; AE-CHF; AE-COPD; H/O CVA; HTN; PE, DVT Seen and examined at bedside; 24 hour events reviewed; nursing and respiratory care staff consulted; no adverse overnight events reported to me; resting peacefully in bed; ETT in place. No asynchrony, No episodes of vomiting s/p Cefepime Vent 500/12/8/40%. Objective Vital Signs - 12hr 12/24/19 12/24/19 12/24/19 23:31 23:32 23:46 Temperature 99.1 F Pulse Rate 83 70 Pulse Rate [ From Monitor] Respiratory Rate Blood Pressure 134/83 139/94 O2 Sat by Pulse 96 97 Oximetry 12/25/19 12/25/19 12/25/19 00:00 00:31 01:00 Temperature Pulse Rate 63 61 73 Pulse Rate [ 82 From Monitor] Respiratory Rate Blood Pressure 96/64 96/64 95/71 O2 Sat by Pulse 89 95 97 Oximetry 12/25/19 12/25/19 12/25/19 01:31 02:00 02:31 Temperature Pulse Rate 74 78 84 Pulse Rate [ From Monitor] Respiratory Rate Blood Pressure 95/71 101/75 101/75 O2 Sat by Pulse 97 98 98 Oximetry 12/25/19 12/25/19 12/25/19 03:00 03:23 03:31 Temperature 97.5 F L Pulse Rate 84 84 Pulse Rate [ From Monitor] Respiratory Rate Blood Pressure 106/82 106/82 O2 Sat by Pulse 100 98 Oximetry 12/25/19 12/25/19 12/25/19 04:00 04:05 04:31 Temperature Pulse Rate 87 84 86 Pulse Rate [ 87 From Monitor] Respiratory Rate Blood Pressure 106/81 106/81 106/82 O2 Sat by Pulse 97 97 97 Oximetry 12/25/19 12/25/19 12/25/19 05:00 05:31 06:00 Temperature Pulse Rate 84 90 84 Pulse Rate [ From Monitor] Respiratory Rate Blood Pressure 108/79 108/79 105/78 O2 Sat by Pulse 100 98 Oximetry 12/25/19 12/25/19 12/25/19 06:13 06:31 07:00 Temperature Pulse Rate 90 86 84 Pulse Rate [ From Monitor] Respiratory 22 22 Rate Blood Pressure 105/78 101/74 O2 Sat by Pulse 96 95 Oximetry 12/25/19 12/25/19 12/25/19 07:31 08:00 08:14 Temperature 97.8 F Pulse Rate 83 83 83 Pulse Rate [ 83 From Monitor] Respiratory 42 H 26 H Rate Blood Pressure 101/74 103/73 103/73 O2 Sat by Pulse 96 97 97 Oximetry 12/25/19 12/25/19 12/25/19 08:31 09:00 09:31 Temperature Pulse Rate 93 H 87 85 Pulse Rate [ From Monitor] Respiratory 23 23 22 Rate Blood Pressure 103/73 104/76 104/76 O2 Sat by Pulse 96 95 Oximetry 12/25/19 12/25/19 10:00 10:15 Temperature Pulse Rate 86 89 Pulse Rate [ From Monitor] Respiratory 18 21 Rate Blood Pressure 102/74 102/74 O2 Sat by Pulse Oximetry Constitutional: no acute distress, agitated, other (elderly and obese male, normocephalic with mildly increased respiratory effort at rest on MVS) Eyes: non-icteric ENT: oropharynx moist, other (ETT 24 cm JASON) Neck: supple, no JVD Effort: mildly labored Ascultation: Bilateral: clear, diminished breath sounds (bases R>L), rhonchi Percussion: Bilateral: not dull Cardiovascular: irregular rhythm Gastrointestinal: normoactive bowel sounds, soft, non-tender, non-distended Integumentary: normal Extremities: no cyanosis, pulses normal, no ischemia or petechiae, edema (bilateral upper ) Neurologic: non-focal exam (moves all extremities with extreme agitation), pupils equal and round, motor strength normal and, other (sedated lightly) Psychiatric: other (unable to assess re: AMS) CBC and BMP: 12/28/19 02:41 12/28/19 02:41 ABG, PT/INR, D-dimer: ABG ABG pH 7.418 (7.320-7.450) 12/22/19 03:22 POC ABG pCO2 52.9 mmHg (32.0-48.0) H 12/22/19 03:22 ABG pCO2 48.7 mm Hg 12/19/19 09:20 POC ABG pO2 52.3 mmHg (83-108) L 12/22/19 03:22 ABG pO2 62.6 mm Hg (80.0-90.0) L 12/19/19 09:20 POC ABG HCO3 33.4 12/22/19 03:22 ABG O2 Saturation 93.8 % (95.0-99.0) L 12/19/19 09:20 PT/INR, D-dimer PT 13.8 Sec. (12.2-14.9) 12/21/19 10:13 INR 1.05 (0.87-1.13) 12/21/19 10:13 Abnormal lab findings: Abnormal Labs 11/24/19 11/24/19 11/24/19 02:53 02:53 03:45 WBC 14.3 H RBC Hgb Hct MCHC RDW 17.2 H Lymph % (Auto) [place] % (Auto) [place] # Eos # [place] # (Auto) Eos # (Auto) Seg Neutrophils % Seg Neuts % (Manual) Baso # (Auto) Lymphocytes % (Manual) Monocytes % (Manual) Eosinophils % (Manual) Basophils % (Manual) Seg Neutrophils # Seg Neutrophils # Man 8.3 H Lymphocytes # (Manual) Monocytes # (Manual) 0.9 H Eosinophils # (Manual) Nucleated RBC % Basophils # (Manual) APTT Heparin Anti-Xa Level ABG pH 7.313 L POC ABG pO2 ABG pO2 102.8 H ABG HCO3 ABG O2 Saturation ABG Base Excess -2.9 L POC ABG pCO2 ABG Hemoglobin ABG Oxyhemoglobin Oxyhemoglobin 93.9 L Sodium Potassium Chloride Carbon Dioxide BUN Creatinine Glucose 195 H POC Glucose Lactic Acid Calcium Phosphorus Magnesium AST ALT Lactate Dehydrogenase CK-MB (CK-2) 4.3 H C-Reactive Protein NT-Pro-B Natriuret Pep 1181 H Total Protein Albumin Urine WBC (Auto) 11/24/19 11/24/19 11/24/19 04:53 04:53 10:37 WBC RBC Hgb Hct MCHC RDW Lymph % (Auto) [place] % (Auto) [place] # Eos # [place] # (Auto) Eos # (Auto) Seg Neutrophils % Seg Neuts % (Manual) Baso # (Auto) Lymphocytes % (Manual) Monocytes % (Manual) Eosinophils % (Manual) Basophils % (Manual) Seg Neutrophils # Seg Neutrophils # Man Lymphocytes # (Manual) Monocytes # (Manual) Eosinophils # (Manual) Nucleated RBC % Basophils # (Manual) APTT Heparin Anti-Xa Level ABG pH POC ABG pO2 ABG pO2 ABG HCO3 ABG O2 Saturation ABG Base Excess POC ABG pCO2 ABG Hemoglobin ABG Oxyhemoglobin Oxyhemoglobin Sodium Potassium Chloride Carbon Dioxide BUN Creatinine Glucose 162 H POC Glucose Lactic Acid 2.40 H* 2.50 H* Calcium Phosphorus Magnesium AST ALT Lactate Dehydrogenase 240 H CK-MB (CK-2) C-Reactive Protein NT-Pro-B Natriuret Pep Total Protein Albumin Urine WBC (Auto) 11/24/19 11/24/19 11/24/19 12:21 14:50 19:54 WBC RBC Hgb Hct MCHC RDW Lymph % (Auto) [place] % (Auto) [place] # Eos # [place] # (Auto) Eos # (Auto) Seg Neutrophils % Seg Neuts % (Manual) Baso # (Auto) Lymphocytes % (Manual) Monocytes % (Manual) Eosinophils % (Manual) Basophils % (Manual) Seg Neutrophils # Seg Neutrophils # Man Lymphocytes # (Manual) Monocytes # (Manual) Eosinophils # (Manual) Nucleated RBC % Basophils # (Manual) APTT Heparin Anti-Xa Level ABG pH POC ABG pO2 ABG pO2 ABG HCO3 ABG O2 Saturation ABG Base Excess POC ABG pCO2 ABG Hemoglobin ABG Oxyhemoglobin Oxyhemoglobin Sodium Potassium Chloride Carbon Dioxide BUN Creatinine Glucose POC Glucose 145 H 143 H 124 H Lactic Acid Calcium Phosphorus Magnesium AST ALT Lactate Dehydrogenase CK-MB (CK-2) C-Reactive Protein NT-Pro-B Natriuret Pep Total Protein Albumin Urine WBC (Auto) 11/25/19 11/25/19 11/25/19 00:18 03:18 05:11 WBC 13.7 H RBC Hgb Hct MCHC RDW 17.1 H Lymph % (Auto) 10.8 L [place] % (Auto) 8.7 H [place] # 1.2 H Eos # [place] # (Auto) Eos # (Auto) Seg Neutrophils % 80.2 H Seg Neuts % (Manual) Baso # (Auto) Lymphocytes % (Manual) Monocytes % (Manual) Eosinophils % (Manual) Basophils % (Manual) Seg Neutrophils # 11.0 H Seg Neutrophils # Man Lymphocytes # (Manual) Monocytes # (Manual) Eosinophils # (Manual) Nucleated RBC % Basophils # (Manual) APTT Heparin Anti-Xa Level ABG pH 7.333 L POC ABG pO2 ABG pO2 61.2 L ABG HCO3 ABG O2 Saturation 90.2 L ABG Base Excess POC ABG pCO2 ABG Hemoglobin 13.7 L ABG Oxyhemoglobin Oxyhemoglobin 88.2 L Sodium Potassium Chloride Carbon Dioxide BUN Creatinine Glucose POC Glucose 109 H Lactic Acid Calcium Phosphorus Magnesium AST ALT Lactate Dehydrogenase CK-MB (CK-2) C-Reactive Protein NT-Pro-B Natriuret Pep Total Protein Albumin Urine WBC (Auto) 11/25/19 11/25/19 11/26/19 05:11 11:40 03:12 WBC RBC Hgb Hct MCHC RDW Lymph % (Auto) [place] % (Auto) [place] # Eos # [place] # (Auto) Eos # (Auto) Seg Neutrophils % Seg Neuts % (Manual) Baso # (Auto) Lymphocytes % (Manual) Monocytes % (Manual) Eosinophils % (Manual) Basophils % (Manual) Seg Neutrophils # Seg Neutrophils # Man Lymphocytes # (Manual) Monocytes # (Manual) Eosinophils # (Manual) Nucleated RBC % Basophils # (Manual) APTT Heparin Anti-Xa Level ABG pH POC ABG pO2 ABG pO2 155.1 H ABG HCO3 27.8 H ABG O2 Saturation ABG Base Excess POC ABG pCO2 ABG Hemoglobin 12.2 L ABG Oxyhemoglobin Oxyhemoglobin Sodium Potassium Chloride Carbon Dioxide BUN 23 H Creatinine Glucose 110 H POC Glucose 108 H Lactic Acid Calcium Phosphorus Magnesium AST ALT Lactate Dehydrogenase CK-MB (CK-2) C-Reactive Protein NT-Pro-B Natriuret Pep Total Protein Albumin Urine WBC (Auto) 11/26/19 11/26/19 11/26/19 06:17 10:43 10:43 WBC 11.4 H RBC Hgb Hct MCHC RDW 17.1 H Lymph % (Auto) [place] % (Auto) [place] # Eos # [place] # (Auto) Eos # (Auto) Seg Neutrophils % Seg Neuts % (Manual) Baso # (Auto) Lymphocytes % (Manual) Monocytes % (Manual) Eosinophils % (Manual) Basophils % (Manual) Seg Neutrophils # Seg Neutrophils # Man Lymphocytes # (Manual) Monocytes # (Manual) Eosinophils # (Manual) Nucleated RBC % Basophils # (Manual) APTT Heparin Anti-Xa Level ABG pH POC ABG pO2 ABG pO2 ABG HCO3 ABG O2 Saturation ABG Base Excess POC ABG pCO2 ABG Hemoglobin ABG Oxyhemoglobin Oxyhemoglobin Sodium Potassium Chloride Carbon Dioxide BUN 29 H Creatinine Glucose POC Glucose 107 H Lactic Acid Calcium Phosphorus Magnesium AST ALT Lactate Dehydrogenase CK-MB (CK-2) C-Reactive Protein NT-Pro-B Natriuret Pep Total Protein Albumin Urine WBC (Auto) 11/26/19 11/27/19 11/27/19 17:11 01:53 04:11 WBC RBC Hgb Hct MCHC RDW Lymph % (Auto) [place] % (Auto) [place] # Eos # [place] # (Auto) Eos # (Auto) Seg Neutrophils % Seg Neuts % (Manual) Baso # (Auto) Lymphocytes % (Manual) Monocytes % (Manual) Eosinophils % (Manual) Basophils % (Manual) Seg Neutrophils # Seg Neutrophils # Man Lymphocytes # (Manual) Monocytes # (Manual) Eosinophils # (Manual) Nucleated RBC % Basophils # (Manual) APTT Heparin Anti-Xa Level ABG pH POC ABG pO2 ABG pO2 ABG HCO3 29.2 H ABG O2 Saturation ABG Base Excess 3.4 H POC ABG pCO2 ABG Hemoglobin 13.3 L ABG Oxyhemoglobin Oxyhemoglobin 94.5 L Sodium Potassium Chloride Carbon Dioxide BUN Creatinine Glucose POC Glucose 113 H 108 H Lactic Acid Calcium Phosphorus Magnesium AST ALT Lactate Dehydrogenase CK-MB (CK-2) C-Reactive Protein NT-Pro-B Natriuret Pep Total Protein Albumin Urine WBC (Auto) 11/27/19 11/28/19 11/28/19 05:27 05:00 05:25 WBC RBC Hgb Hct MCHC RDW Lymph % (Auto) [place] % (Auto) [place] # Eos # [place] # (Auto) Eos # (Auto) Seg Neutrophils % Seg Neuts % (Manual) Baso # (Auto) Lymphocytes % (Manual) Monocytes % (Manual) Eosinophils % (Manual) Basophils % (Manual) Seg Neutrophils # Seg Neutrophils # Man Lymphocytes # (Manual) Monocytes # (Manual) Eosinophils # (Manual) Nucleated RBC % Basophils # (Manual) APTT Heparin Anti-Xa Level ABG pH POC ABG pO2 68.1 L ABG pO2 ABG HCO3 ABG O2 Saturation ABG Base Excess POC ABG pCO2 ABG Hemoglobin ABG Oxyhemoglobin 91.2 L Oxyhemoglobin Sodium Potassium Chloride Carbon Dioxide BUN Creatinine Glucose POC Glucose 111 H 110 H Lactic Acid Calcium Phosphorus Magnesium AST ALT Lactate Dehydrogenase CK-MB (CK-2) C-Reactive Protein NT-Pro-B Natriuret Pep Total Protein Albumin Urine WBC (Auto) 11/28/19 11/28/19 11/28/19 12:08 13:47 13:47 WBC 11.3 H RBC Hgb Hct MCHC RDW 16.1 H Lymph % (Auto) [place] % (Auto) 9.9 H [place] # 1.1 H Eos # [place] # (Auto) Eos # (Auto) Seg Neutrophils % 71.4 H Seg Neuts % (Manual) Baso # (Auto) Lymphocytes % (Manual) Monocytes % (Manual) Eosinophils % (Manual) Basophils % (Manual) Seg Neutrophils # 8.1 H Seg Neutrophils # Man Lymphocytes # (Manual) Monocytes # (Manual) Eosinophils # (Manual) Nucleated RBC % Basophils # (Manual) APTT Heparin Anti-Xa Level ABG pH POC ABG pO2 ABG pO2 ABG HCO3 ABG O2 Saturation ABG Base Excess POC ABG pCO2 ABG Hemoglobin ABG Oxyhemoglobin Oxyhemoglobin Sodium Potassium Chloride Carbon Dioxide BUN 23 H Creatinine Glucose 123 H POC Glucose 112 H Lactic Acid Calcium Phosphorus Magnesium AST ALT Lactate Dehydrogenase CK-MB (CK-2) C-Reactive Protein NT-Pro-B Natriuret Pep Total Protein Albumin 3.7 L Urine WBC (Auto) 11/28/19 11/29/19 11/29/19 17:26 03:55 17:04 WBC RBC Hgb Hct MCHC RDW Lymph % (Auto) [place] % (Auto) [place] # Eos # [place] # (Auto) Eos # (Auto) Seg Neutrophils % Seg Neuts % (Manual) Baso # (Auto) Lymphocytes % (Manual) Monocytes % (Manual) Eosinophils % (Manual) Basophils % (Manual) Seg Neutrophils # Seg Neutrophils # Man Lymphocytes # (Manual) Monocytes # (Manual) Eosinophils # (Manual) Nucleated RBC % Basophils # (Manual) APTT Heparin Anti-Xa Level ABG pH POC ABG pO2 ABG pO2 65.7 L ABG HCO3 28.3 H ABG O2 Saturation 93.9 L ABG Base Excess 3.6 H POC ABG pCO2 ABG Hemoglobin 13.3 L ABG Oxyhemoglobin Oxyhemoglobin 91.5 L Sodium Potassium Chloride Carbon Dioxide BUN Creatinine Glucose POC Glucose 123 H 119 H Lactic Acid Calcium Phosphorus Magnesium AST ALT Lactate Dehydrogenase CK-MB (CK-2) C-Reactive Protein NT-Pro-B Natriuret Pep Total Protein Albumin Urine WBC (Auto) 11/30/19 11/30/19 11/30/19 04:17 04:17 04:56 WBC 13.4 H RBC Hgb Hct MCHC RDW 15.6 H Lymph % (Auto) [place] % (Auto) [place] # Eos # [place] # (Auto) Eos # (Auto) Seg Neutrophils % Seg Neuts % (Manual) Baso # (Auto) Lymphocytes % (Manual) Monocytes % (Manual) Eosinophils % (Manual) Basophils % (Manual) Seg Neutrophils # Seg Neutrophils # Man Lymphocytes # (Manual) Monocytes # (Manual) Eosinophils # (Manual) Nucleated RBC % Basophils # (Manual) APTT Heparin Anti-Xa Level ABG pH POC ABG pO2 ABG pO2 56.3 L ABG HCO3 29.3 H ABG O2 Saturation 91.5 L ABG Base Excess 4.7 H POC ABG pCO2 ABG Hemoglobin 12.1 L ABG Oxyhemoglobin Oxyhemoglobin 89.2 L Sodium 147 H Potassium Chloride Carbon Dioxide BUN 30 H Creatinine Glucose 124 H POC Glucose Lactic Acid Calcium Phosphorus Magnesium AST ALT Lactate Dehydrogenase CK-MB (CK-2) C-Reactive Protein NT-Pro-B Natriuret Pep Total Protein Albumin 3.8 L Urine WBC (Auto) 11/30/19 11/30/19 11/30/19 05:51 11:54 18:17 WBC RBC Hgb Hct MCHC RDW Lymph % (Auto) [place] % (Auto) [place] # Eos # [place] # (Auto) Eos # (Auto) Seg Neutrophils % Seg Neuts % (Manual) Baso # (Auto) Lymphocytes % (Manual) Monocytes % (Manual) Eosinophils % (Manual) Basophils % (Manual) Seg Neutrophils # Seg Neutrophils # Man Lymphocytes # (Manual) Monocytes # (Manual) Eosinophils # (Manual) Nucleated RBC % Basophils # (Manual) APTT Heparin Anti-Xa Level ABG pH POC ABG pO2 ABG pO2 ABG HCO3 ABG O2 Saturation ABG Base Excess POC ABG pCO2 ABG Hemoglobin ABG Oxyhemoglobin Oxyhemoglobin Sodium Potassium Chloride Carbon Dioxide BUN Creatinine Glucose POC Glucose 127 H 115 H 143 H Lactic Acid Calcium Phosphorus Magnesium AST ALT Lactate Dehydrogenase CK-MB (CK-2) C-Reactive Protein NT-Pro-B Natriuret Pep Total Protein Albumin Urine WBC (Auto) 12/01/19 12/01/19 12/01/19 01:18 05:22 12:16 WBC RBC Hgb Hct MCHC RDW Lymph % (Auto) [place] % (Auto) [place] # Eos # [place] # (Auto) Eos # (Auto) Seg Neutrophils % Seg Neuts % (Manual) Baso # (Auto) Lymphocytes % (Manual) Monocytes % (Manual) Eosinophils % (Manual) Basophils % (Manual) Seg Neutrophils # Seg Neutrophils # Man Lymphocytes # (Manual) Monocytes # (Manual) Eosinophils # (Manual) Nucleated RBC % Basophils # (Manual) APTT Heparin Anti-Xa Level ABG pH POC ABG pO2 ABG pO2 ABG HCO3 ABG O2 Saturation ABG Base Excess POC ABG pCO2 ABG Hemoglobin ABG Oxyhemoglobin Oxyhemoglobin Sodium Potassium 3.5 L Chloride 107.8 H Carbon Dioxide BUN 37 H Creatinine Glucose 157 H POC Glucose 118 H 148 H Lactic Acid Calcium 8.2 L D Phosphorus Magnesium AST 48 H ALT 60 H Lactate Dehydrogenase 194 H CK-MB (CK-2) C-Reactive Protein 8.50 H NT-Pro-B Natriuret Pep Total Protein 5.5 L Albumin 2.8 L Urine WBC (Auto) 12/01/19 12/02/19 12/02/19 18:04 00:05 05:16 WBC 11.4 H RBC Hgb Hct MCHC RDW 15.9 H Lymph % (Auto) [place] % (Auto) 9.9 H [place] # 1.1 H Eos # [place] # (Auto) Eos # (Auto) Seg Neutrophils % 70.3 H Seg Neuts % (Manual) Baso # (Auto) Lymphocytes % (Manual) Monocytes % (Manual) Eosinophils % (Manual) Basophils % (Manual) Seg Neutrophils # 8.0 H Seg Neutrophils # Man Lymphocytes # (Manual) Monocytes # (Manual) Eosinophils # (Manual) Nucleated RBC % Basophils # (Manual) APTT Heparin Anti-Xa Level ABG pH POC ABG pO2 ABG pO2 ABG HCO3 ABG O2 Saturation ABG Base Excess POC ABG pCO2 ABG Hemoglobin ABG Oxyhemoglobin Oxyhemoglobin Sodium Potassium Chloride Carbon Dioxide BUN Creatinine Glucose POC Glucose 143 H 107 H Lactic Acid Calcium Phosphorus Magnesium AST ALT Lactate Dehydrogenase CK-MB (CK-2) C-Reactive Protein NT-Pro-B Natriuret Pep Total Protein Albumin Urine WBC (Auto) 12/02/19 12/02/19 12/02/19 05:16 06:03 11:52 WBC RBC Hgb Hct MCHC RDW Lymph % (Auto) [place] % (Auto) [place] # Eos # [place] # (Auto) Eos # (Auto) Seg Neutrophils % Seg Neuts % (Manual) Baso # (Auto) Lymphocytes % (Manual) Monocytes % (Manual) Eosinophils % (Manual) Basophils % (Manual) Seg Neutrophils # Seg Neutrophils # Man Lymphocytes # (Manual) Monocytes # (Manual) Eosinophils # (Manual) Nucleated RBC % Basophils # (Manual) APTT Heparin Anti-Xa Level ABG pH POC ABG pO2 ABG pO2 ABG HCO3 ABG O2 Saturation ABG Base Excess POC ABG pCO2 ABG Hemoglobin ABG Oxyhemoglobin Oxyhemoglobin Sodium 146 H Potassium Chloride Carbon Dioxide BUN 28 H Creatinine Glucose 123 H POC Glucose 110 H 152 H Lactic Acid Calcium Phosphorus Magnesium AST ALT Lactate Dehydrogenase CK-MB (CK-2) C-Reactive Protein NT-Pro-B Natriuret Pep Total Protein Albumin Urine WBC (Auto) 12/02/19 12/02/19 12/02/19 12:58 17:58 23:36 WBC RBC Hgb Hct MCHC RDW Lymph % (Auto) [place] % (Auto) [place] # Eos # [place] # (Auto) Eos # (Auto) Seg Neutrophils % Seg Neuts % (Manual) Baso # (Auto) Lymphocytes % (Manual) Monocytes % (Manual) Eosinophils % (Manual) Basophils % (Manual) Seg Neutrophils # Seg Neutrophils # Man Lymphocytes # (Manual) Monocytes # (Manual) Eosinophils # (Manual) Nucleated RBC % Basophils # (Manual) APTT Heparin Anti-Xa Level ABG pH POC ABG pO2 78.1 L ABG pO2 ABG HCO3 ABG O2 Saturation ABG Base Excess POC ABG pCO2 ABG Hemoglobin ABG Oxyhemoglobin Oxyhemoglobin Sodium Potassium Chloride Carbon Dioxide BUN Creatinine Glucose POC Glucose 120 H 123 H Lactic Acid Calcium Phosphorus Magnesium AST ALT Lactate Dehydrogenase CK-MB (CK-2) C-Reactive Protein NT-Pro-B Natriuret Pep Total Protein Albumin Urine WBC (Auto) 12/03/19 12/03/19 12/03/19 06:03 06:14 11:46 WBC RBC Hgb Hct MCHC RDW Lymph % (Auto) [place] % (Auto) [place] # Eos # [place] # (Auto) Eos # (Auto) Seg Neutrophils % Seg Neuts % (Manual) Baso # (Auto) Lymphocytes % (Manual) Monocytes % (Manual) Eosinophils % (Manual) Basophils % (Manual) Seg Neutrophils # Seg Neutrophils # Man Lymphocytes # (Manual) Monocytes # (Manual) Eosinophils # (Manual) Nucleated RBC % Basophils # (Manual) APTT Heparin Anti-Xa Level ABG pH POC ABG pO2 ABG pO2 ABG HCO3 ABG O2 Saturation ABG Base Excess POC ABG pCO2 ABG Hemoglobin ABG Oxyhemoglobin Oxyhemoglobin Sodium Potassium Chloride Carbon Dioxide BUN Creatinine Glucose POC Glucose 142 H 130 H Lactic Acid Calcium Phosphorus Magnesium AST ALT Lactate Dehydrogenase CK-MB (CK-2) C-Reactive Protein NT-Pro-B Natriuret Pep Total Protein Albumin Urine WBC (Auto) 8.0 H 12/03/19 12/03/19 12/04/19 15:50 17:39 00:04 WBC RBC Hgb Hct MCHC RDW Lymph % (Auto) [place] % (Auto) [place] # Eos # [place] # (Auto) Eos # (Auto) Seg Neutrophils % Seg Neuts % (Manual) Baso # (Auto) Lymphocytes % (Manual) Monocytes % (Manual) Eosinophils % (Manual) Basophils % (Manual) Seg Neutrophils # Seg Neutrophils # Man Lymphocytes # (Manual) Monocytes # (Manual) Eosinophils # (Manual) Nucleated RBC % Basophils # (Manual) APTT Heparin Anti-Xa Level ABG pH POC ABG pO2 ABG pO2 ABG HCO3 ABG O2 Saturation ABG Base Excess POC ABG pCO2 ABG Hemoglobin ABG Oxyhemoglobin Oxyhemoglobin Sodium Potassium Chloride Carbon Dioxide BUN Creatinine Glucose POC Glucose 146 H 133 H Lactic Acid Calcium Phosphorus 2.40 L Magnesium AST ALT Lactate Dehydrogenase CK-MB (CK-2) C-Reactive Protein NT-Pro-B Natriuret Pep Total Protein Albumin Urine WBC (Auto) 12/04/19 12/04/19 12/04/19 03:58 03:58 05:22 WBC 12.5 H RBC Hgb 11.2 L Hct 35.2 L MCHC RDW 16.0 H Lymph % (Auto) [place] % (Auto) 9.6 H [place] # 1.2 H Eos # 0.5 H [place] # (Auto) Eos # (Auto) Seg Neutrophils % Seg Neuts % (Manual) Baso # (Auto) Lymphocytes % (Manual) Monocytes % (Manual) Eosinophils % (Manual) Basophils % (Manual) Seg Neutrophils # 8.6 H Seg Neutrophils # Man Lymphocytes # (Manual) Monocytes # (Manual) Eosinophils # (Manual) Nucleated RBC % Basophils # (Manual) APTT Heparin Anti-Xa Level ABG pH POC ABG pO2 ABG pO2 ABG HCO3 ABG O2 Saturation ABG Base Excess POC ABG pCO2 ABG Hemoglobin ABG Oxyhemoglobin Oxyhemoglobin Sodium 146 H Potassium Chloride 108.6 H Carbon Dioxide BUN 30 H Creatinine 0.7 L Glucose 121 H POC Glucose 132 H Lactic Acid Calcium Phosphorus Magnesium AST ALT Lactate Dehydrogenase CK-MB (CK-2) C-Reactive Protein NT-Pro-B Natriuret Pep Total Protein Albumin Urine WBC (Auto) 12/04/19 12/04/19 12/05/19 13:26 18:43 00:19 WBC RBC Hgb Hct MCHC RDW Lymph % (Auto) [place] % (Auto) [place] # Eos # [place] # (Auto) Eos # (Auto) Seg Neutrophils % Seg Neuts % (Manual) Baso # (Auto) Lymphocytes % (Manual) Monocytes % (Manual) Eosinophils % (Manual) Basophils % (Manual) Seg Neutrophils # Seg Neutrophils # Man Lymphocytes # (Manual) Monocytes # (Manual) Eosinophils # (Manual) Nucleated RBC % Basophils # (Manual) APTT Heparin Anti-Xa Level ABG pH POC ABG pO2 ABG pO2 ABG HCO3 ABG O2 Saturation ABG Base Excess POC ABG pCO2 ABG Hemoglobin ABG Oxyhemoglobin Oxyhemoglobin Sodium Potassium Chloride Carbon Dioxide BUN Creatinine Glucose POC Glucose 185 H 156 H 150 H Lactic Acid Calcium Phosphorus Magnesium AST ALT Lactate Dehydrogenase CK-MB (CK-2) C-Reactive Protein NT-Pro-B Natriuret Pep Total Protein Albumin Urine WBC (Auto) 12/05/19 12/05/19 12/05/19 03:37 03:37 05:14 WBC 16.3 H RBC Hgb 11.4 L Hct MCHC RDW 15.6 H Lymph % (Auto) 9.9 L [place] % (Auto) 9.7 H [place] # 1.6 H Eos # [place] # (Auto) Eos # (Auto) Seg Neutrophils % 78.0 H Seg Neuts % (Manual) Baso # (Auto) Lymphocytes % (Manual) Monocytes % (Manual) Eosinophils % (Manual) Basophils % (Manual) Seg Neutrophils # 12.7 H Seg Neutrophils # Man Lymphocytes # (Manual) Monocytes # (Manual) Eosinophils # (Manual) Nucleated RBC % Basophils # (Manual) APTT Heparin Anti-Xa Level ABG pH POC ABG pO2 ABG pO2 ABG HCO3 ABG O2 Saturation ABG Base Excess POC ABG pCO2 ABG Hemoglobin ABG Oxyhemoglobin Oxyhemoglobin Sodium 146 H Potassium Chloride 107.2 H Carbon Dioxide BUN 27 H Creatinine 0.7 L Glucose 171 H POC Glucose 168 H Lactic Acid Calcium Phosphorus Magnesium AST ALT Lactate Dehydrogenase CK-MB (CK-2) C-Reactive Protein NT-Pro-B Natriuret Pep Total Protein Albumin Urine WBC (Auto) 12/05/19 12/05/19 12/05/19 12:31 18:10 23:58 WBC RBC Hgb Hct MCHC RDW Lymph % (Auto) [place] % (Auto) [place] # Eos # [place] # (Auto) Eos # (Auto) Seg Neutrophils % Seg Neuts % (Manual) Baso # (Auto) Lymphocytes % (Manual) Monocytes % (Manual) Eosinophils % (Manual) Basophils % (Manual) Seg Neutrophils # Seg Neutrophils # Man Lymphocytes # (Manual) Monocytes # (Manual) Eosinophils # (Manual) Nucleated RBC % Basophils # (Manual) APTT Heparin Anti-Xa Level ABG pH POC ABG pO2 ABG pO2 ABG HCO3 ABG O2 Saturation ABG Base Excess POC ABG pCO2 ABG Hemoglobin ABG Oxyhemoglobin Oxyhemoglobin Sodium Potassium Chloride Carbon Dioxide BUN Creatinine Glucose POC Glucose 159 H 198 H 115 H Lactic Acid Calcium Phosphorus Magnesium AST ALT Lactate Dehydrogenase CK-MB (CK-2) C-Reactive Protein NT-Pro-B Natriuret Pep Total Protein Albumin Urine WBC (Auto) 12/06/19 12/06/19 12/06/19 05:24 05:24 05:25 WBC 14.9 H RBC Hgb 10.8 L Hct 34.0 L MCHC RDW 15.6 H Lymph % (Auto) 10.7 L [place] % (Auto) 8.3 H [place] # 1.2 H Eos # [place] # (Auto) Eos # (Auto) Seg Neutrophils % 78.7 H Seg Neuts % (Manual) Baso # (Auto) Lymphocytes % (Manual) Monocytes % (Manual) Eosinophils % (Manual) Basophils % (Manual) Seg Neutrophils # 11.7 H Seg Neutrophils # Man Lymphocytes # (Manual) Monocytes # (Manual) Eosinophils # (Manual) Nucleated RBC % Basophils # (Manual) APTT Heparin Anti-Xa Level ABG pH POC ABG pO2 ABG pO2 ABG HCO3 ABG O2 Saturation ABG Base Excess POC ABG pCO2 ABG Hemoglobin ABG Oxyhemoglobin Oxyhemoglobin Sodium 148 H Potassium 5.1 H Chloride 107.6 H Carbon Dioxide BUN 27 H Creatinine 0.7 L Glucose 155 H POC Glucose 157 H Lactic Acid Calcium Phosphorus Magnesium AST ALT Lactate Dehydrogenase CK-MB (CK-2) C-Reactive Protein NT-Pro-B Natriuret Pep Total Protein Albumin Urine WBC (Auto) 12/07/19 12/07/19 12/07/19 00:13 05:34 11:33 WBC RBC Hgb Hct MCHC RDW Lymph % (Auto) [place] % (Auto) [place] # Eos # [place] # (Auto) Eos # (Auto) Seg Neutrophils % Seg Neuts % (Manual) Baso # (Auto) Lymphocytes % (Manual) Monocytes % (Manual) Eosinophils % (Manual) Basophils % (Manual) Seg Neutrophils # Seg Neutrophils # Man Lymphocytes # (Manual) Monocytes # (Manual) Eosinophils # (Manual) Nucleated RBC % Basophils # (Manual) APTT Heparin Anti-Xa Level ABG pH POC ABG pO2 ABG pO2 ABG HCO3 ABG O2 Saturation ABG Base Excess POC ABG pCO2 ABG Hemoglobin ABG Oxyhemoglobin Oxyhemoglobin Sodium Potassium Chloride Carbon Dioxide BUN Creatinine Glucose POC Glucose 142 H 111 H 169 H Lactic Acid Calcium Phosphorus Magnesium AST ALT Lactate Dehydrogenase CK-MB (CK-2) C-Reactive Protein NT-Pro-B Natriuret Pep Total Protein Albumin Urine WBC (Auto) 12/07/19 12/07/19 12/07/19 12:41 13:25 18:19 WBC 12.4 H RBC 3.53 L Hgb 10.2 L Hct 32.1 L MCHC RDW 15.3 H Lymph % (Auto) 10.6 L [place] % (Auto) 7.8 H [place] # 1.0 H Eos # [place] # (Auto) Eos # (Auto) Seg Neutrophils % 77.6 H Seg Neuts % (Manual) Baso # (Auto) Lymphocytes % (Manual) Monocytes % (Manual) Eosinophils % (Manual) Basophils % (Manual) Seg Neutrophils # 9.6 H Seg Neutrophils # Man Lymphocytes # (Manual) Monocytes # (Manual) Eosinophils # (Manual) Nucleated RBC % Basophils # (Manual) APTT Heparin Anti-Xa Level ABG pH POC ABG pO2 ABG pO2 ABG HCO3 ABG O2 Saturation ABG Base Excess POC ABG pCO2 ABG Hemoglobin ABG Oxyhemoglobin Oxyhemoglobin Sodium 149 H Potassium Chloride 108.4 H Carbon Dioxide BUN 26 H Creatinine 0.6 L Glucose 149 H POC Glucose 164 H Lactic Acid Calcium Phosphorus Magnesium 2.60 H AST 121 H ALT 145 H Lactate Dehydrogenase CK-MB (CK-2) C-Reactive Protein NT-Pro-B Natriuret Pep Total Protein Albumin 2.6 L Urine WBC (Auto) 12/07/19 12/08/19 12/08/19 22:25 00:02 03:55 WBC 13.3 H RBC 3.40 L Hgb 9.7 L Hct 30.8 L MCHC 31 L RDW 15.5 H Lymph % (Auto) [place] % (Auto) 8.1 H [place] # 1.1 H Eos # [place] # (Auto) Eos # (Auto) Seg Neutrophils % 73.0 H Seg Neuts % (Manual) Baso # (Auto) Lymphocytes % (Manual) Monocytes % (Manual) Eosinophils % (Manual) Basophils % (Manual) Seg Neutrophils # 9.7 H Seg Neutrophils # Man Lymphocytes # (Manual) Monocytes # (Manual) Eosinophils # (Manual) Nucleated RBC % Basophils # (Manual) APTT Heparin Anti-Xa Level 0.12 L ABG pH POC ABG pO2 ABG pO2 ABG HCO3 ABG O2 Saturation ABG Base Excess POC ABG pCO2 ABG Hemoglobin ABG Oxyhemoglobin Oxyhemoglobin Sodium Potassium Chloride Carbon Dioxide BUN Creatinine Glucose POC Glucose 151 H Lactic Acid Calcium Phosphorus Magnesium AST ALT Lactate Dehydrogenase CK-MB (CK-2) C-Reactive Protein NT-Pro-B Natriuret Pep Total Protein Albumin Urine WBC (Auto) 12/08/19 12/08/19 12/08/19 03:55 05:21 06:01 WBC RBC Hgb Hct MCHC RDW Lymph % (Auto) [place] % (Auto) [place] # Eos # [place] # (Auto) Eos # (Auto) Seg Neutrophils % Seg Neuts % (Manual) Baso # (Auto) Lymphocytes % (Manual) Monocytes % (Manual) Eosinophils % (Manual) Basophils % (Manual) Seg Neutrophils # Seg Neutrophils # Man Lymphocytes # (Manual) Monocytes # (Manual) Eosinophils # (Manual) Nucleated RBC % Basophils # (Manual) APTT Heparin Anti-Xa Level 0.20 L ABG pH POC ABG pO2 ABG pO2 ABG HCO3 ABG O2 Saturation ABG Base Excess POC ABG pCO2 ABG Hemoglobin ABG Oxyhemoglobin Oxyhemoglobin Sodium 149 H Potassium Chloride 108.0 H Carbon Dioxide BUN 28 H Creatinine 0.6 L Glucose 144 H POC Glucose 143 H Lactic Acid Calcium Phosphorus Magnesium AST 98 H ALT 145 H Lactate Dehydrogenase CK-MB (CK-2) C-Reactive Protein NT-Pro-B Natriuret Pep Total Protein 6.0 L Albumin 2.4 L Urine WBC (Auto) 12/08/19 12/08/19 12/08/19 12:08 18:11 23:53 WBC RBC Hgb Hct MCHC RDW Lymph % (Auto) [place] % (Auto) [place] # Eos # [place] # (Auto) Eos # (Auto) Seg Neutrophils % Seg Neuts % (Manual) Baso # (Auto) Lymphocytes % (Manual) Monocytes % (Manual) Eosinophils % (Manual) Basophils % (Manual) Seg Neutrophils # Seg Neutrophils # Man Lymphocytes # (Manual) Monocytes # (Manual) Eosinophils # (Manual) Nucleated RBC % Basophils # (Manual) APTT Heparin Anti-Xa Level ABG pH POC ABG pO2 ABG pO2 ABG HCO3 ABG O2 Saturation ABG Base Excess POC ABG pCO2 ABG Hemoglobin ABG Oxyhemoglobin Oxyhemoglobin Sodium Potassium Chloride Carbon Dioxide BUN Creatinine Glucose POC Glucose 172 H 122 H 162 H Lactic Acid Calcium Phosphorus Magnesium AST ALT Lactate Dehydrogenase CK-MB (CK-2) C-Reactive Protein NT-Pro-B Natriuret Pep Total Protein Albumin Urine WBC (Auto) 12/09/19 12/09/19 12/09/19 04:03 04:03 05:53 WBC RBC Hgb 9.1 L Hct 28.9 L MCHC RDW Lymph % (Auto) [place] % (Auto) [place] # Eos # [place] # (Auto) Eos # (Auto) Seg Neutrophils % Seg Neuts % (Manual) Baso # (Auto) Lymphocytes % (Manual) Monocytes % (Manual) Eosinophils % (Manual) Basophils % (Manual) Seg Neutrophils # Seg Neutrophils # Man Lymphocytes # (Manual) Monocytes # (Manual) Eosinophils # (Manual) Nucleated RBC % Basophils # (Manual) APTT Heparin Anti-Xa Level 0.15 L ABG pH POC ABG pO2 ABG pO2 ABG HCO3 ABG O2 Saturation ABG Base Excess POC ABG pCO2 ABG Hemoglobin ABG Oxyhemoglobin Oxyhemoglobin Sodium Potassium Chloride Carbon Dioxide BUN Creatinine Glucose POC Glucose 124 H Lactic Acid Calcium Phosphorus Magnesium AST ALT Lactate Dehydrogenase CK-MB (CK-2) C-Reactive Protein NT-Pro-B Natriuret Pep Total Protein Albumin Urine WBC (Auto) 12/09/19 12/09/19 12/10/19 09:43 12:41 00:13 WBC RBC Hgb Hct MCHC RDW Lymph % (Auto) [place] % (Auto) [place] # Eos # [place] # (Auto) Eos # (Auto) Seg Neutrophils % Seg Neuts % (Manual) Baso # (Auto) Lymphocytes % (Manual) Monocytes % (Manual) Eosinophils % (Manual) Basophils % (Manual) Seg Neutrophils # Seg Neutrophils # Man Lymphocytes # (Manual) Monocytes # (Manual) Eosinophils # (Manual) Nucleated RBC % Basophils # (Manual) APTT Heparin Anti-Xa Level ABG pH POC ABG pO2 ABG pO2 ABG HCO3 ABG O2 Saturation ABG Base Excess POC ABG pCO2 ABG Hemoglobin ABG Oxyhemoglobin Oxyhemoglobin Sodium Potassium Chloride Carbon Dioxide BUN 25 H Creatinine 0.6 L Glucose 131 H POC Glucose 109 H 120 H Lactic Acid Calcium Phosphorus Magnesium AST ALT Lactate Dehydrogenase CK-MB (CK-2) C-Reactive Protein NT-Pro-B Natriuret Pep Total Protein Albumin Urine WBC (Auto) 12/10/19 12/10/19 12/10/19 04:14 04:14 12:00 WBC 13.3 H RBC 3.34 L Hgb 9.6 L Hct 30.4 L MCHC RDW 15.4 H Lymph % (Auto) [place] % (Auto) [place] # Eos # [place] # (Auto) Eos # (Auto) Seg Neutrophils % Seg Neuts % (Manual) 75.0 H Baso # (Auto) Lymphocytes % (Manual) 13.0 L Monocytes % (Manual) 8.0 H Eosinophils % (Manual) Basophils % (Manual) 2.0 H Seg Neutrophils # Seg Neutrophils # Man 10.0 H Lymphocytes # (Manual) Monocytes # (Manual) 1.1 H Eosinophils # (Manual) Nucleated RBC % Basophils # (Manual) 0.3 H APTT Heparin Anti-Xa Level ABG pH POC ABG pO2 ABG pO2 ABG HCO3 ABG O2 Saturation ABG Base Excess POC ABG pCO2 ABG Hemoglobin ABG Oxyhemoglobin Oxyhemoglobin Sodium 147 H Potassium Chloride 108.3 H Carbon Dioxide BUN 21 H Creatinine 0.6 L Glucose 104 H POC Glucose 133 H Lactic Acid Calcium Phosphorus Magnesium AST ALT Lactate Dehydrogenase CK-MB (CK-2) C-Reactive Protein NT-Pro-B Natriuret Pep Total Protein Albumin Urine WBC (Auto) 12/10/19 12/10/19 12/11/19 18:44 21:20 00:08 WBC 14.9 H RBC 3.36 L Hgb 9.6 L Hct 30.5 L MCHC RDW 15.4 H Lymph % (Auto) [place] % (Auto) [place] # Eos # [place] # (Auto) Eos # (Auto) Seg Neutrophils % Seg Neuts % (Manual) Baso # (Auto) Lymphocytes % (Manual) Monocytes % (Manual) Eosinophils % (Manual) Basophils % (Manual) Seg Neutrophils # Seg Neutrophils # Man Lymphocytes # (Manual) Monocytes # (Manual) Eosinophils # (Manual) Nucleated RBC % Basophils # (Manual) APTT Heparin Anti-Xa Level ABG pH POC ABG pO2 ABG pO2 ABG HCO3 ABG O2 Saturation ABG Base Excess POC ABG pCO2 ABG Hemoglobin ABG Oxyhemoglobin Oxyhemoglobin Sodium Potassium Chloride Carbon Dioxide BUN Creatinine Glucose POC Glucose 119 H 134 H Lactic Acid Calcium Phosphorus Magnesium AST ALT Lactate Dehydrogenase CK-MB (CK-2) C-Reactive Protein NT-Pro-B Natriuret Pep Total Protein Albumin Urine WBC (Auto) 12/11/19 12/11/19 12/11/19 03:54 07:28 08:36 WBC 11.9 H RBC 3.25 L Hgb 9.6 L Hct 29.2 L MCHC RDW 15.7 H Lymph % (Auto) [place] % (Auto) [place] # Eos # [place] # (Auto) Eos # (Auto) Seg Neutrophils % Seg Neuts % (Manual) Baso # (Auto) Lymphocytes % (Manual) Monocytes % (Manual) Eosinophils % (Manual) Basophils % (Manual) Seg Neutrophils # Seg Neutrophils # Man Lymphocytes # (Manual) Monocytes # (Manual) Eosinophils # (Manual) Nucleated RBC % Basophils # (Manual) APTT Heparin Anti-Xa Level 0.10 L 0.16 L ABG pH POC ABG pO2 ABG pO2 ABG HCO3 ABG O2 Saturation ABG Base Excess POC ABG pCO2 ABG Hemoglobin ABG Oxyhemoglobin Oxyhemoglobin Sodium Potassium Chloride Carbon Dioxide BUN Creatinine Glucose POC Glucose Lactic Acid Calcium Phosphorus Magnesium AST ALT Lactate Dehydrogenase CK-MB (CK-2) C-Reactive Protein NT-Pro-B Natriuret Pep Total Protein Albumin Urine WBC (Auto) 12/11/19 12/11/19 12/11/19 08:36 11:45 17:15 WBC RBC Hgb Hct MCHC RDW Lymph % (Auto) [place] % (Auto) [place] # Eos # [place] # (Auto) Eos # (Auto) Seg Neutrophils % Seg Neuts % (Manual) Baso # (Auto) Lymphocytes % (Manual) Monocytes % (Manual) Eosinophils % (Manual) Basophils % (Manual) Seg Neutrophils # Seg Neutrophils # Man Lymphocytes # (Manual) Monocytes # (Manual) Eosinophils # (Manual) Nucleated RBC % Basophils # (Manual) APTT Heparin Anti-Xa Level ABG pH POC ABG pO2 ABG pO2 ABG HCO3 ABG O2 Saturation ABG Base Excess POC ABG pCO2 ABG Hemoglobin ABG Oxyhemoglobin Oxyhemoglobin Sodium Potassium Chloride Carbon Dioxide BUN Creatinine 0.5 L Glucose 128 H POC Glucose 136 H 109 H Lactic Acid Calcium Phosphorus Magnesium AST ALT Lactate Dehydrogenase CK-MB (CK-2) C-Reactive Protein NT-Pro-B Natriuret Pep Total Protein Albumin Urine WBC (Auto) 12/12/19 12/12/19 12/12/19 00:03 05:53 05:53 WBC RBC Hgb 8.8 L Hct 27.6 L MCHC RDW Lymph % (Auto) [place] % (Auto) [place] # Eos # [place] # (Auto) Eos # (Auto) Seg Neutrophils % Seg Neuts % (Manual) Baso # (Auto) Lymphocytes % (Manual) Monocytes % (Manual) Eosinophils % (Manual) Basophils % (Manual) Seg Neutrophils # Seg Neutrophils # Man Lymphocytes # (Manual) Monocytes # (Manual) Eosinophils # (Manual) Nucleated RBC % Basophils # (Manual) APTT Heparin Anti-Xa Level 0.22 L ABG pH POC ABG pO2 ABG pO2 ABG HCO3 ABG O2 Saturation ABG Base Excess POC ABG pCO2 ABG Hemoglobin ABG Oxyhemoglobin Oxyhemoglobin Sodium Potassium Chloride Carbon Dioxide BUN Creatinine Glucose POC Glucose 116 H Lactic Acid Calcium Phosphorus Magnesium AST ALT Lactate Dehydrogenase CK-MB (CK-2) C-Reactive Protein NT-Pro-B Natriuret Pep Total Protein Albumin Urine WBC (Auto) 12/12/19 12/12/19 12/12/19 09:38 12:18 17:44 WBC RBC Hgb Hct MCHC RDW Lymph % (Auto) [place] % (Auto) [place] # Eos # [place] # (Auto) Eos # (Auto) Seg Neutrophils % Seg Neuts % (Manual) Baso # (Auto) Lymphocytes % (Manual) Monocytes % (Manual) Eosinophils % (Manual) Basophils % (Manual) Seg Neutrophils # Seg Neutrophils # Man Lymphocytes # (Manual) Monocytes # (Manual) Eosinophils # (Manual) Nucleated RBC % Basophils # (Manual) APTT Heparin Anti-Xa Level ABG pH POC ABG pO2 ABG pO2 ABG HCO3 ABG O2 Saturation ABG Base Excess POC ABG pCO2 ABG Hemoglobin ABG Oxyhemoglobin Oxyhemoglobin Sodium Potassium Chloride Carbon Dioxide BUN Creatinine Glucose POC Glucose 115 H 146 H 146 H Lactic Acid Calcium Phosphorus Magnesium AST ALT Lactate Dehydrogenase CK-MB (CK-2) C-Reactive Protein NT-Pro-B Natriuret Pep Total Protein Albumin Urine WBC (Auto) 12/12/19 12/13/19 12/13/19 23:33 05:32 05:32 WBC 13.1 H RBC 3.27 L Hgb 9.5 L Hct 29.3 L MCHC RDW 15.6 H Lymph % (Auto) [place] % (Auto) [place] # Eos # [place] # (Auto) Eos # (Auto) Seg Neutrophils % Seg Neuts % (Manual) 74.0 H Baso # (Auto) Lymphocytes % (Manual) 8.0 L Monocytes % (Manual) 9.0 H Eosinophils % (Manual) 5.0 H Basophils % (Manual) Seg Neutrophils # Seg Neutrophils # Man 9.7 H Lymphocytes # (Manual) 1.0 L Monocytes # (Manual) 1.2 H Eosinophils # (Manual) 0.7 H Nucleated RBC % Basophils # (Manual) APTT Heparin Anti-Xa Level 0.20 L ABG pH POC ABG pO2 ABG pO2 ABG HCO3 ABG O2 Saturation ABG Base Excess POC ABG pCO2 ABG Hemoglobin ABG Oxyhemoglobin Oxyhemoglobin Sodium Potassium Chloride Carbon Dioxide BUN Creatinine Glucose POC Glucose 126 H Lactic Acid Calcium Phosphorus Magnesium AST ALT Lactate Dehydrogenase CK-MB (CK-2) C-Reactive Protein NT-Pro-B Natriuret Pep Total Protein Albumin Urine WBC (Auto) 12/13/19 12/13/19 12/13/19 05:32 05:46 11:57 WBC RBC Hgb Hct MCHC RDW Lymph % (Auto) [place] % (Auto) [place] # Eos # [place] # (Auto) Eos # (Auto) Seg Neutrophils % Seg Neuts % (Manual) Baso # (Auto) Lymphocytes % (Manual) Monocytes % (Manual) Eosinophils % (Manual) Basophils % (Manual) Seg Neutrophils # Seg Neutrophils # Man Lymphocytes # (Manual) Monocytes # (Manual) Eosinophils # (Manual) Nucleated RBC % Basophils # (Manual) APTT Heparin Anti-Xa Level ABG pH POC ABG pO2 ABG pO2 ABG HCO3 ABG O2 Saturation ABG Base Excess POC ABG pCO2 ABG Hemoglobin ABG Oxyhemoglobin Oxyhemoglobin Sodium Potassium Chloride Carbon Dioxide 31 H BUN Creatinine 0.6 L Glucose 114 H POC Glucose 118 H 133 H Lactic Acid Calcium Phosphorus Magnesium AST ALT Lactate Dehydrogenase CK-MB (CK-2) C-Reactive Protein NT-Pro-B Natriuret Pep Total Protein Albumin Urine WBC (Auto) 12/13/19 12/13/19 12/14/19 17:44 23:46 05:32 WBC RBC Hgb Hct MCHC RDW Lymph % (Auto) [place] % (Auto) [place] # Eos # [place] # (Auto) Eos # (Auto) Seg Neutrophils % Seg Neuts % (Manual) Baso # (Auto) Lymphocytes % (Manual) Monocytes % (Manual) Eosinophils % (Manual) Basophils % (Manual) Seg Neutrophils # Seg Neutrophils # Man Lymphocytes # (Manual) Monocytes # (Manual) Eosinophils # (Manual) Nucleated RBC % Basophils # (Manual) APTT Heparin Anti-Xa Level ABG pH POC ABG pO2 ABG pO2 ABG HCO3 ABG O2 Saturation ABG Base Excess POC ABG pCO2 ABG Hemoglobin ABG Oxyhemoglobin Oxyhemoglobin Sodium Potassium Chloride Carbon Dioxide BUN Creatinine Glucose POC Glucose 161 H 126 H 139 H Lactic Acid Calcium Phosphorus Magnesium AST ALT Lactate Dehydrogenase CK-MB (CK-2) C-Reactive Protein NT-Pro-B Natriuret Pep Total Protein Albumin Urine WBC (Auto) 12/14/19 12/14/19 12/14/19 06:03 06:03 09:37 WBC RBC Hgb 9.6 L Hct 30.4 L MCHC RDW Lymph % (Auto) [place] % (Auto) [place] # Eos # [place] # (Auto) Eos # (Auto) Seg Neutrophils % Seg Neuts % (Manual) Baso # (Auto) Lymphocytes % (Manual) Monocytes % (Manual) Eosinophils % (Manual) Basophils % (Manual) Seg Neutrophils # Seg Neutrophils # Man Lymphocytes # (Manual) Monocytes # (Manual) Eosinophils # (Manual) Nucleated RBC % Basophils # (Manual) APTT Heparin Anti-Xa Level 0.24 L ABG pH POC ABG pO2 ABG pO2 ABG HCO3 ABG O2 Saturation ABG Base Excess POC ABG pCO2 ABG Hemoglobin ABG Oxyhemoglobin Oxyhemoglobin Sodium Potassium Chloride Carbon Dioxide BUN Creatinine 0.6 L Glucose 162 H POC Glucose Lactic Acid Calcium Phosphorus Magnesium AST 71 H ALT 118 H Lactate Dehydrogenase CK-MB (CK-2) C-Reactive Protein NT-Pro-B Natriuret Pep Total Protein 6.2 L Albumin 2.3 L Urine WBC (Auto) 12/14/19 12/14/19 12/15/19 12:06 18:18 00:19 WBC RBC Hgb Hct MCHC RDW Lymph % (Auto) [place] % (Auto) [place] # Eos # [place] # (Auto) Eos # (Auto) Seg Neutrophils % Seg Neuts % (Manual) Baso # (Auto) Lymphocytes % (Manual) Monocytes % (Manual) Eosinophils % (Manual) Basophils % (Manual) Seg Neutrophils # Seg Neutrophils # Man Lymphocytes # (Manual) Monocytes # (Manual) Eosinophils # (Manual) Nucleated RBC % Basophils # (Manual) APTT Heparin Anti-Xa Level ABG pH POC ABG pO2 ABG pO2 ABG HCO3 ABG O2 Saturation ABG Base Excess POC ABG pCO2 ABG Hemoglobin ABG Oxyhemoglobin Oxyhemoglobin Sodium Potassium Chloride Carbon Dioxide BUN Creatinine Glucose POC Glucose 147 H 166 H 123 H Lactic Acid Calcium Phosphorus Magnesium AST ALT Lactate Dehydrogenase CK-MB (CK-2) C-Reactive Protein NT-Pro-B Natriuret Pep Total Protein Albumin Urine WBC (Auto) 12/15/19 12/15/19 12/15/19 05:28 05:29 05:29 WBC 14.9 H RBC 3.19 L Hgb 9.1 L Hct 28.7 L MCHC RDW 16.0 H Lymph % (Auto) [place] % (Auto) [place] # Eos # [place] # (Auto) Eos # (Auto) Seg Neutrophils % Seg Neuts % (Manual) Baso # (Auto) Lymphocytes % (Manual) Monocytes % (Manual) Eosinophils % (Manual) Basophils % (Manual) Seg Neutrophils # Seg Neutrophils # Man Lymphocytes # (Manual) Monocytes # (Manual) Eosinophils # (Manual) Nucleated RBC % Basophils # (Manual) APTT Heparin Anti-Xa Level 0.19 L ABG pH POC ABG pO2 ABG pO2 ABG HCO3 ABG O2 Saturation ABG Base Excess POC ABG pCO2 ABG Hemoglobin ABG Oxyhemoglobin Oxyhemoglobin Sodium Potassium Chloride Carbon Dioxide BUN Creatinine 0.6 L Glucose 110 H POC Glucose Lactic Acid Calcium Phosphorus Magnesium AST ALT Lactate Dehydrogenase CK-MB (CK-2) C-Reactive Protein NT-Pro-B Natriuret Pep Total Protein Albumin Urine WBC (Auto) 12/15/19 12/15/19 12/15/19 05:53 11:50 17:26 WBC RBC Hgb Hct MCHC RDW Lymph % (Auto) [place] % (Auto) [place] # Eos # [place] # (Auto) Eos # (Auto) Seg Neutrophils % Seg Neuts % (Manual) Baso # (Auto) Lymphocytes % (Manual) Monocytes % (Manual) Eosinophils % (Manual) Basophils % (Manual) Seg Neutrophils # Seg Neutrophils # Man Lymphocytes # (Manual) Monocytes # (Manual) Eosinophils # (Manual) Nucleated RBC % Basophils # (Manual) APTT Heparin Anti-Xa Level ABG pH POC ABG pO2 ABG pO2 ABG HCO3 ABG O2 Saturation ABG Base Excess POC ABG pCO2 ABG Hemoglobin ABG Oxyhemoglobin Oxyhemoglobin Sodium Potassium Chloride Carbon Dioxide BUN Creatinine Glucose POC Glucose 119 H 132 H 128 H Lactic Acid Calcium Phosphorus Magnesium AST ALT Lactate Dehydrogenase CK-MB (CK-2) C-Reactive Protein NT-Pro-B Natriuret Pep Total Protein Albumin Urine WBC (Auto) 12/15/19 12/16/19 12/16/19 23:11 05:30 05:46 WBC RBC Hgb 8.8 L Hct 27.9 L MCHC RDW Lymph % (Auto) [place] % (Auto) [place] # Eos # [place] # (Auto) Eos # (Auto) Seg Neutrophils % Seg Neuts % (Manual) Baso # (Auto) Lymphocytes % (Manual) Monocytes % (Manual) Eosinophils % (Manual) Basophils % (Manual) Seg Neutrophils # Seg Neutrophils # Man Lymphocytes # (Manual) Monocytes # (Manual) Eosinophils # (Manual) Nucleated RBC % Basophils # (Manual) APTT Heparin Anti-Xa Level ABG pH POC ABG pO2 ABG pO2 ABG HCO3 ABG O2 Saturation ABG Base Excess POC ABG pCO2 ABG Hemoglobin ABG Oxyhemoglobin Oxyhemoglobin Sodium Potassium Chloride Carbon Dioxide BUN Creatinine Glucose POC Glucose 150 H 134 H Lactic Acid Calcium Phosphorus Magnesium AST ALT Lactate Dehydrogenase CK-MB (CK-2) C-Reactive Protein NT-Pro-B Natriuret Pep Total Protein Albumin Urine WBC (Auto) 12/16/19 12/16/19 12/16/19 05:46 05:46 11:44 WBC RBC Hgb Hct MCHC RDW Lymph % (Auto) [place] % (Auto) [place] # Eos # [place] # (Auto) Eos # (Auto) Seg Neutrophils % Seg Neuts % (Manual) Baso # (Auto) Lymphocytes % (Manual) Monocytes % (Manual) Eosinophils % (Manual) Basophils % (Manual) Seg Neutrophils # Seg Neutrophils # Man Lymphocytes # (Manual) Monocytes # (Manual) Eosinophils # (Manual) Nucleated RBC % Basophils # (Manual) APTT Heparin Anti-Xa Level 0.20 L ABG pH POC ABG pO2 ABG pO2 ABG HCO3 ABG O2 Saturation ABG Base Excess POC ABG pCO2 ABG Hemoglobin ABG Oxyhemoglobin Oxyhemoglobin Sodium Potassium Chloride Carbon Dioxide 31 H BUN Creatinine 0.5 L Glucose 147 H POC Glucose 164 H Lactic Acid Calcium Phosphorus Magnesium AST ALT Lactate Dehydrogenase CK-MB (CK-2) C-Reactive Protein NT-Pro-B Natriuret Pep Total Protein Albumin Urine WBC (Auto) 12/16/19 12/16/19 12/17/19 17:17 23:49 05:30 WBC 13.9 H RBC 3.27 L Hgb 9.4 L Hct 29.2 L MCHC RDW 16.0 H Lymph % (Auto) [place] % (Auto) 8.8 H [place] # Eos # [place] # (Auto) 1.2 H Eos # (Auto) 0.5 H Seg Neutrophils % 70.5 H Seg Neuts % (Manual) Baso # (Auto) 0.2 H Lymphocytes % (Manual) Monocytes % (Manual) Eosinophils % (Manual) Basophils % (Manual) Seg Neutrophils # 9.8 H Seg Neutrophils # Man Lymphocytes # (Manual) Monocytes # (Manual) Eosinophils # (Manual) Nucleated RBC % Basophils # (Manual) APTT Heparin Anti-Xa Level ABG pH POC ABG pO2 ABG pO2 ABG HCO3 ABG O2 Saturation ABG Base Excess POC ABG pCO2 ABG Hemoglobin ABG Oxyhemoglobin Oxyhemoglobin Sodium Potassium Chloride Carbon Dioxide BUN Creatinine Glucose POC Glucose 162 H 144 H Lactic Acid Calcium Phosphorus Magnesium AST ALT Lactate Dehydrogenase CK-MB (CK-2) C-Reactive Protein NT-Pro-B Natriuret Pep Total Protein Albumin Urine WBC (Auto) 12/17/19 12/17/19 12/17/19 05:30 06:06 11:50 WBC RBC Hgb Hct MCHC RDW Lymph % (Auto) [place] % (Auto) [place] # Eos # [place] # (Auto) Eos # (Auto) Seg Neutrophils % Seg Neuts % (Manual) Baso # (Auto) Lymphocytes % (Manual) Monocytes % (Manual) Eosinophils % (Manual) Basophils % (Manual) Seg Neutrophils # Seg Neutrophils # Man Lymphocytes # (Manual) Monocytes # (Manual) Eosinophils # (Manual) Nucleated RBC % Basophils # (Manual) APTT Heparin Anti-Xa Level ABG pH POC ABG pO2 ABG pO2 ABG HCO3 ABG O2 Saturation ABG Base Excess POC ABG pCO2 ABG Hemoglobin ABG Oxyhemoglobin Oxyhemoglobin Sodium Potassium Chloride 97.4 L Carbon Dioxide 32 H BUN Creatinine 0.5 L Glucose 135 H POC Glucose 151 H 140 H Lactic Acid Calcium Phosphorus Magnesium AST ALT Lactate Dehydrogenase CK-MB (CK-2) C-Reactive Protein NT-Pro-B Natriuret Pep Total Protein Albumin Urine WBC (Auto) 12/17/19 12/17/19 12/18/19 17:50 23:46 05:17 WBC RBC Hgb 8.8 L Hct 28.0 L MCHC RDW Lymph % (Auto) [place] % (Auto) [place] # Eos # [place] # (Auto) Eos # (Auto) Seg Neutrophils % Seg Neuts % (Manual) Baso # (Auto) Lymphocytes % (Manual) Monocytes % (Manual) Eosinophils % (Manual) Basophils % (Manual) Seg Neutrophils # Seg Neutrophils # Man Lymphocytes # (Manual) Monocytes # (Manual) Eosinophils # (Manual) Nucleated RBC % Basophils # (Manual) APTT Heparin Anti-Xa Level ABG pH POC ABG pO2 ABG pO2 ABG HCO3 ABG O2 Saturation ABG Base Excess POC ABG pCO2 ABG Hemoglobin ABG Oxyhemoglobin Oxyhemoglobin Sodium Potassium Chloride Carbon Dioxide BUN Creatinine Glucose POC Glucose 158 H 150 H Lactic Acid Calcium Phosphorus Magnesium AST ALT Lactate Dehydrogenase CK-MB (CK-2) C-Reactive Protein NT-Pro-B Natriuret Pep Total Protein Albumin Urine WBC (Auto) 12/18/19 12/18/19 12/18/19 05:17 05:49 11:12 WBC RBC Hgb Hct MCHC RDW Lymph % (Auto) [place] % (Auto) [place] # Eos # [place] # (Auto) Eos # (Auto) Seg Neutrophils % Seg Neuts % (Manual) Baso # (Auto) Lymphocytes % (Manual) Monocytes % (Manual) Eosinophils % (Manual) Basophils % (Manual) Seg Neutrophils # Seg Neutrophils # Man Lymphocytes # (Manual) Monocytes # (Manual) Eosinophils # (Manual) Nucleated RBC % Basophils # (Manual) APTT Heparin Anti-Xa Level 0.16 L ABG pH POC ABG pO2 ABG pO2 ABG HCO3 ABG O2 Saturation ABG Base Excess POC ABG pCO2 ABG Hemoglobin ABG Oxyhemoglobin Oxyhemoglobin Sodium Potassium Chloride Carbon Dioxide BUN Creatinine Glucose POC Glucose 127 H 191 H Lactic Acid Calcium Phosphorus Magnesium AST ALT Lactate Dehydrogenase CK-MB (CK-2) C-Reactive Protein NT-Pro-B Natriuret Pep Total Protein Albumin Urine WBC (Auto) 12/18/19 12/18/19 12/19/19 17:03 20:16 00:08 WBC RBC Hgb Hct MCHC RDW Lymph % (Auto) [place] % (Auto) [place] # Eos # [place] # (Auto) Eos # (Auto) Seg Neutrophils % Seg Neuts % (Manual) Baso # (Auto) Lymphocytes % (Manual) Monocytes % (Manual) Eosinophils % (Manual) Basophils % (Manual) Seg Neutrophils # Seg Neutrophils # Man Lymphocytes # (Manual) Monocytes # (Manual) Eosinophils # (Manual) Nucleated RBC % Basophils # (Manual) APTT Heparin Anti-Xa Level ABG pH POC ABG pO2 ABG pO2 ABG HCO3 ABG O2 Saturation ABG Base Excess POC ABG pCO2 ABG Hemoglobin ABG Oxyhemoglobin Oxyhemoglobin Sodium Potassium Chloride Carbon Dioxide BUN Creatinine Glucose POC Glucose 133 H 128 H 129 H Lactic Acid Calcium Phosphorus Magnesium AST ALT Lactate Dehydrogenase CK-MB (CK-2) C-Reactive Protein NT-Pro-B Natriuret Pep Total Protein Albumin Urine WBC (Auto) 12/19/19 12/19/19 12/19/19 04:45 04:45 05:35 WBC RBC Hgb Hct MCHC RDW Lymph % (Auto) [place] % (Auto) [place] # Eos # [place] # (Auto) Eos # (Auto) Seg Neutrophils % Seg Neuts % (Manual) Baso # (Auto) Lymphocytes % (Manual) Monocytes % (Manual) Eosinophils % (Manual) Basophils % (Manual) Seg Neutrophils # Seg Neutrophils # Man Lymphocytes # (Manual) Monocytes # (Manual) Eosinophils # (Manual) Nucleated RBC % Basophils # (Manual) APTT Heparin Anti-Xa Level 0.17 L ABG pH POC ABG pO2 ABG pO2 ABG HCO3 ABG O2 Saturation ABG Base Excess POC ABG pCO2 ABG Hemoglobin ABG Oxyhemoglobin Oxyhemoglobin Sodium Potassium Chloride Carbon Dioxide BUN Creatinine Glucose POC Glucose 120 H Lactic Acid Calcium Phosphorus Magnesium AST ALT Lactate Dehydrogenase 228 H CK-MB (CK-2) C-Reactive Protein NT-Pro-B Natriuret Pep Total Protein Albumin Urine WBC (Auto) 12/19/19 12/19/19 12/19/19 09:20 11:32 11:32 WBC 14.6 H RBC 3.08 L Hgb 9.0 L Hct 26.8 L MCHC RDW 15.9 H Lymph % (Auto) [place] % (Auto) [place] # Eos # [place] # (Auto) Eos # (Auto) Seg Neutrophils % Seg Neuts % (Manual) 82.0 H Baso # (Auto) Lymphocytes % (Manual) 10.0 L Monocytes % (Manual) Eosinophils % (Manual) Basophils % (Manual) Seg Neutrophils # Seg Neutrophils # Man 12.0 H Lymphocytes # (Manual) Monocytes # (Manual) 0.9 H Eosinophils # (Manual) Nucleated RBC % 1.0 H Basophils # (Manual) APTT Heparin Anti-Xa Level ABG pH 7.451 H POC ABG pO2 ABG pO2 62.6 L ABG HCO3 33.2 H ABG O2 Saturation 93.8 L ABG Base Excess 8.3 H POC ABG pCO2 ABG Hemoglobin 8.3 L ABG Oxyhemoglobin Oxyhemoglobin 91.9 L Sodium Potassium Chloride 95.0 L Carbon Dioxide 33 H BUN 22 H Creatinine 0.6 L Glucose 150 H POC Glucose Lactic Acid Calcium Phosphorus Magnesium AST ALT Lactate Dehydrogenase CK-MB (CK-2) C-Reactive Protein NT-Pro-B Natriuret Pep Total Protein 6.2 L Albumin 2.4 L Urine WBC (Auto) 12/19/19 12/19/19 12/20/19 11:56 18:17 00:09 WBC RBC Hgb Hct MCHC RDW Lymph % (Auto) [place] % (Auto) [place] # Eos # [place] # (Auto) Eos # (Auto) Seg Neutrophils % Seg Neuts % (Manual) Baso # (Auto) Lymphocytes % (Manual) Monocytes % (Manual) Eosinophils % (Manual) Basophils % (Manual) Seg Neutrophils # Seg Neutrophils # Man Lymphocytes # (Manual) Monocytes # (Manual) Eosinophils # (Manual) Nucleated RBC % Basophils # (Manual) APTT Heparin Anti-Xa Level ABG pH POC ABG pO2 ABG pO2 ABG HCO3 ABG O2 Saturation ABG Base Excess POC ABG pCO2 ABG Hemoglobin ABG Oxyhemoglobin Oxyhemoglobin Sodium Potassium Chloride Carbon Dioxide BUN Creatinine Glucose POC Glucose 156 H 156 H 155 H Lactic Acid Calcium Phosphorus Magnesium AST ALT Lactate Dehydrogenase CK-MB (CK-2) C-Reactive Protein NT-Pro-B Natriuret Pep Total Protein Albumin Urine WBC (Auto) 12/20/19 12/20/19 12/20/19 05:26 06:02 18:17 WBC RBC Hgb Hct MCHC RDW Lymph % (Auto) [place] % (Auto) [place] # Eos # [place] # (Auto) Eos # (Auto) Seg Neutrophils % Seg Neuts % (Manual) Baso # (Auto) Lymphocytes % (Manual) Monocytes % (Manual) Eosinophils % (Manual) Basophils % (Manual) Seg Neutrophils # Seg Neutrophils # Man Lymphocytes # (Manual) Monocytes # (Manual) Eosinophils # (Manual) Nucleated RBC % Basophils # (Manual) APTT Heparin Anti-Xa Level 0.19 L ABG pH POC ABG pO2 ABG pO2 ABG HCO3 ABG O2 Saturation ABG Base Excess POC ABG pCO2 ABG Hemoglobin ABG Oxyhemoglobin Oxyhemoglobin Sodium Potassium Chloride Carbon Dioxide BUN Creatinine Glucose POC Glucose 137 H 128 H Lactic Acid Calcium Phosphorus Magnesium AST ALT Lactate Dehydrogenase CK-MB (CK-2) C-Reactive Protein NT-Pro-B Natriuret Pep Total Protein Albumin Urine WBC (Auto) 12/20/19 12/21/19 12/21/19 23:34 05:31 05:31 WBC 12.7 H RBC 3.09 L Hgb 8.9 L Hct 27.4 L MCHC RDW 15.8 H Lymph % (Auto) 12.1 L [place] % (Auto) 7.8 H [place] # Eos # [place] # (Auto) 1.0 H Eos # (Auto) Seg Neutrophils % 77.1 H Seg Neuts % (Manual) Baso # (Auto) Lymphocytes % (Manual) Monocytes % (Manual) Eosinophils % (Manual) Basophils % (Manual) Seg Neutrophils # 9.8 H Seg Neutrophils # Man Lymphocytes # (Manual) Monocytes # (Manual) Eosinophils # (Manual) Nucleated RBC % Basophils # (Manual) APTT Heparin Anti-Xa Level ABG pH POC ABG pO2 ABG pO2 ABG HCO3 ABG O2 Saturation ABG Base Excess POC ABG pCO2 ABG Hemoglobin ABG Oxyhemoglobin Oxyhemoglobin Sodium Potassium Chloride 96.9 L Carbon Dioxide 37 H BUN 27 H Creatinine 0.7 L Glucose 140 H POC Glucose 145 H Lactic Acid Calcium Phosphorus Magnesium AST ALT Lactate Dehydrogenase CK-MB (CK-2) C-Reactive Protein NT-Pro-B Natriuret Pep Total Protein Albumin Urine WBC (Auto) 12/21/19 12/21/19 12/21/19 05:38 10:13 11:51 WBC RBC Hgb Hct MCHC RDW Lymph % (Auto) [place] % (Auto) [place] # Eos # [place] # (Auto) Eos # (Auto) Seg Neutrophils % Seg Neuts % (Manual) Baso # (Auto) Lymphocytes % (Manual) Monocytes % (Manual) Eosinophils % (Manual) Basophils % (Manual) Seg Neutrophils # Seg Neutrophils # Man Lymphocytes # (Manual) Monocytes # (Manual) Eosinophils # (Manual) Nucleated RBC % Basophils # (Manual) APTT 23.9 L Heparin Anti-Xa Level < 0.10 L ABG pH POC ABG pO2 ABG pO2 ABG HCO3 ABG O2 Saturation ABG Base Excess POC ABG pCO2 ABG Hemoglobin ABG Oxyhemoglobin Oxyhemoglobin Sodium Potassium Chloride Carbon Dioxide BUN Creatinine Glucose POC Glucose 151 H 145 H Lactic Acid Calcium Phosphorus Magnesium AST ALT Lactate Dehydrogenase CK-MB (CK-2) C-Reactive Protein NT-Pro-B Natriuret Pep Total Protein Albumin Urine WBC (Auto) 12/21/19 12/22/19 12/22/19 17:16 00:01 01:33 WBC RBC Hgb Hct MCHC RDW Lymph % (Auto) [place] % (Auto) [place] # Eos # [place] # (Auto) Eos # (Auto) Seg Neutrophils % Seg Neuts % (Manual) Baso # (Auto) Lymphocytes % (Manual) Monocytes % (Manual) Eosinophils % (Manual) Basophils % (Manual) Seg Neutrophils # Seg Neutrophils # Man Lymphocytes # (Manual) Monocytes # (Manual) Eosinophils # (Manual) Nucleated RBC % Basophils # (Manual) APTT Heparin Anti-Xa Level 0.10 L ABG pH POC ABG pO2 ABG pO2 ABG HCO3 ABG O2 Saturation ABG Base Excess POC ABG pCO2 ABG Hemoglobin ABG Oxyhemoglobin Oxyhemoglobin Sodium Potassium Chloride Carbon Dioxide BUN Creatinine Glucose POC Glucose 167 H 179 H Lactic Acid Calcium Phosphorus Magnesium AST ALT Lactate Dehydrogenase CK-MB (CK-2) C-Reactive Protein NT-Pro-B Natriuret Pep Total Protein Albumin Urine WBC (Auto) 12/22/19 12/22/19 12/22/19 03:22 05:10 05:10 WBC 13.8 H RBC 3.20 L Hgb 8.9 L Hct 28.1 L MCHC RDW 15.9 H Lymph % (Auto) [place] % (Auto) [place] # Eos # [place] # (Auto) Eos # (Auto) Seg Neutrophils % Seg Neuts % (Manual) Baso # (Auto) Lymphocytes % (Manual) Monocytes % (Manual) Eosinophils % (Manual) Basophils % (Manual) Seg Neutrophils # Seg Neutrophils # Man Lymphocytes # (Manual) Monocytes # (Manual) Eosinophils # (Manual) Nucleated RBC % Basophils # (Manual) APTT Heparin Anti-Xa Level ABG pH POC ABG pO2 52.3 L ABG pO2 ABG HCO3 ABG O2 Saturation ABG Base Excess POC ABG pCO2 52.9 H ABG Hemoglobin 10.7 L ABG Oxyhemoglobin 84 L Oxyhemoglobin Sodium Potassium Chloride 96.6 L Carbon Dioxide BUN 25 H Creatinine 0.7 L Glucose 129 H POC Glucose Lactic Acid Calcium Phosphorus Magnesium AST ALT Lactate Dehydrogenase CK-MB (CK-2) C-Reactive Protein NT-Pro-B Natriuret Pep Total Protein Albumin Urine WBC (Auto) 12/22/19 12/22/19 12/22/19 05:18 12:32 12:43 WBC RBC Hgb Hct MCHC RDW Lymph % (Auto) [place] % (Auto) [place] # Eos # [place] # (Auto) Eos # (Auto) Seg Neutrophils % Seg Neuts % (Manual) Baso # (Auto) Lymphocytes % (Manual) Monocytes % (Manual) Eosinophils % (Manual) Basophils % (Manual) Seg Neutrophils # Seg Neutrophils # Man Lymphocytes # (Manual) Monocytes # (Manual) Eosinophils # (Manual) Nucleated RBC % Basophils # (Manual) APTT Heparin Anti-Xa Level 0.18 L ABG pH POC ABG pO2 ABG pO2 ABG HCO3 ABG O2 Saturation ABG Base Excess POC ABG pCO2 ABG Hemoglobin ABG Oxyhemoglobin Oxyhemoglobin Sodium Potassium Chloride Carbon Dioxide BUN Creatinine Glucose POC Glucose 131 H 208 H Lactic Acid Calcium Phosphorus Magnesium AST ALT Lactate Dehydrogenase CK-MB (CK-2) C-Reactive Protein NT-Pro-B Natriuret Pep Total Protein Albumin Urine WBC (Auto) 12/22/19 12/22/19 12/23/19 17:44 23:20 03:51 WBC 15.2 H RBC 3.43 L Hgb 9.6 L Hct 30.3 L MCHC RDW 15.9 H Lymph % (Auto) [place] % (Auto) [place] # Eos # [place] # (Auto) Eos # (Auto) Seg Neutrophils % Seg Neuts % (Manual) Baso # (Auto) Lymphocytes % (Manual) Monocytes % (Manual) Eosinophils % (Manual) Basophils % (Manual) Seg Neutrophils # Seg Neutrophils # Man Lymphocytes # (Manual) Monocytes # (Manual) Eosinophils # (Manual) Nucleated RBC % Basophils # (Manual) APTT Heparin Anti-Xa Level ABG pH POC ABG pO2 ABG pO2 ABG HCO3 ABG O2 Saturation ABG Base Excess POC ABG pCO2 ABG Hemoglobin ABG Oxyhemoglobin Oxyhemoglobin Sodium Potassium Chloride Carbon Dioxide BUN Creatinine Glucose POC Glucose 209 H 119 H Lactic Acid Calcium Phosphorus Magnesium AST ALT Lactate Dehydrogenase CK-MB (CK-2) C-Reactive Protein NT-Pro-B Natriuret Pep Total Protein Albumin Urine WBC (Auto) 12/23/19 12/23/19 12/23/19 03:51 05:31 12:09 WBC RBC Hgb Hct MCHC RDW Lymph % (Auto) [place] % (Auto) [place] # Eos # [place] # (Auto) Eos # (Auto) Seg Neutrophils % Seg Neuts % (Manual) Baso # (Auto) Lymphocytes % (Manual) Monocytes % (Manual) Eosinophils % (Manual) Basophils % (Manual) Seg Neutrophils # Seg Neutrophils # Man Lymphocytes # (Manual) Monocytes # (Manual) Eosinophils # (Manual) Nucleated RBC % Basophils # (Manual) APTT Heparin Anti-Xa Level ABG pH POC ABG pO2 ABG pO2 ABG HCO3 ABG O2 Saturation ABG Base Excess POC ABG pCO2 ABG Hemoglobin ABG Oxyhemoglobin Oxyhemoglobin Sodium Potassium Chloride 97.2 L Carbon Dioxide 31 H BUN 23 H Creatinine 0.6 L Glucose 153 H POC Glucose 149 H 144 H Lactic Acid Calcium Phosphorus Magnesium AST ALT Lactate Dehydrogenase CK-MB (CK-2) C-Reactive Protein NT-Pro-B Natriuret Pep Total Protein Albumin Urine WBC (Auto) 12/23/19 12/23/19 12/23/19 15:30 17:49 23:31 WBC RBC Hgb Hct MCHC RDW Lymph % (Auto) [place] % (Auto) [place] # Eos # [place] # (Auto) Eos # (Auto) Seg Neutrophils % Seg Neuts % (Manual) Baso # (Auto) Lymphocytes % (Manual) Monocytes % (Manual) Eosinophils % (Manual) Basophils % (Manual) Seg Neutrophils # Seg Neutrophils # Man Lymphocytes # (Manual) Monocytes # (Manual) Eosinophils # (Manual) Nucleated RBC % Basophils # (Manual) APTT Heparin Anti-Xa Level 0.21 L ABG pH POC ABG pO2 ABG pO2 ABG HCO3 ABG O2 Saturation ABG Base Excess POC ABG pCO2 ABG Hemoglobin ABG Oxyhemoglobin Oxyhemoglobin Sodium Potassium Chloride Carbon Dioxide BUN Creatinine Glucose POC Glucose 192 H 151 H Lactic Acid Calcium Phosphorus Magnesium AST ALT Lactate Dehydrogenase CK-MB (CK-2) C-Reactive Protein NT-Pro-B Natriuret Pep Total Protein Albumin Urine WBC (Auto) 12/24/19 12/24/19 12/24/19 05:34 12:13 16:50 WBC RBC Hgb Hct MCHC RDW Lymph % (Auto) [place] % (Auto) [place] # Eos # [place] # (Auto) Eos # (Auto) Seg Neutrophils % Seg Neuts % (Manual) Baso # (Auto) Lymphocytes % (Manual) Monocytes % (Manual) Eosinophils % (Manual) Basophils % (Manual) Seg Neutrophils # Seg Neutrophils # Man Lymphocytes # (Manual) Monocytes # (Manual) Eosinophils # (Manual) Nucleated RBC % Basophils # (Manual) APTT Heparin Anti-Xa Level 0.16 L ABG pH POC ABG pO2 ABG pO2 ABG HCO3 ABG O2 Saturation ABG Base Excess POC ABG pCO2 ABG Hemoglobin ABG Oxyhemoglobin Oxyhemoglobin Sodium Potassium Chloride Carbon Dioxide BUN Creatinine Glucose POC Glucose 145 H 124 H Lactic Acid Calcium Phosphorus Magnesium AST ALT Lactate Dehydrogenase CK-MB (CK-2) C-Reactive Protein NT-Pro-B Natriuret Pep Total Protein Albumin Urine WBC (Auto) 12/24/19 12/25/19 12/25/19 17:53 00:14 04:18 WBC 12.9 H RBC 3.30 L Hgb 9.1 L Hct 28.8 L MCHC RDW 16.4 H Lymph % (Auto) [place] % (Auto) 7.8 H [place] # Eos # [place] # (Auto) 1.0 H Eos # (Auto) Seg Neutrophils % 75.5 H Seg Neuts % (Manual) Baso # (Auto) Lymphocytes % (Manual) Monocytes % (Manual) Eosinophils % (Manual) Basophils % (Manual) Seg Neutrophils # 9.7 H Seg Neutrophils # Man Lymphocytes # (Manual) Monocytes # (Manual) Eosinophils # (Manual) Nucleated RBC % Basophils # (Manual) APTT Heparin Anti-Xa Level ABG pH POC ABG pO2 ABG pO2 ABG HCO3 ABG O2 Saturation ABG Base Excess POC ABG pCO2 ABG Hemoglobin ABG Oxyhemoglobin Oxyhemoglobin Sodium Potassium Chloride Carbon Dioxide BUN Creatinine Glucose POC Glucose 164 H 148 H Lactic Acid Calcium Phosphorus Magnesium AST ALT Lactate Dehydrogenase CK-MB (CK-2) C-Reactive Protein NT-Pro-B Natriuret Pep Total Protein Albumin Urine WBC (Auto) 12/25/19 12/25/19 04:18 05:38 WBC RBC Hgb Hct MCHC RDW Lymph % (Auto) [place] % (Auto) [place] # Eos # [place] # (Auto) Eos # (Auto) Seg Neutrophils % Seg Neuts % (Manual) Baso # (Auto) Lymphocytes % (Manual) Monocytes % (Manual) Eosinophils % (Manual) Basophils % (Manual) Seg Neutrophils # Seg Neutrophils # Man Lymphocytes # (Manual) Monocytes # (Manual) Eosinophils # (Manual) Nucleated RBC % Basophils # (Manual) APTT Heparin Anti-Xa Level ABG pH POC ABG pO2 ABG pO2 ABG HCO3 ABG O2 Saturation ABG Base Excess POC ABG pCO2 ABG Hemoglobin ABG Oxyhemoglobin Oxyhemoglobin Sodium Potassium Chloride Carbon Dioxide 33 H BUN 27 H Creatinine 0.6 L Glucose 132 H POC Glucose 152 H Lactic Acid Calcium Phosphorus Magnesium AST ALT Lactate Dehydrogenase CK-MB (CK-2) C-Reactive Protein NT-Pro-B Natriuret Pep Total Protein Albumin Urine WBC (Auto) Allied health notes reviewed: nursing
[2019-12-25] MEDS ORDERED: FUROSEMIDE 40 MG/4 ML INJ IV SCH (11:30)
--- NOTE | 2019-12-25 12:02 | Progress Note ---
Assessment and Plan Cultures: Blood culture 12/02/2019 negative Blood culture 11/24/2019 negative Urine culture 11/24/2019 negative COVID-19 negative x2 12/04/2019 resp culture: PsA 12/06/2019 blood cultures: No growth today MRSA PCR negative A/P: 64-year-old male past medical history hypertension, COPD, CAD, CHF with reduced ejection fraction admitted with acute hypoxic respiratory failure likely secondary to pneumonia #Sepsis: With intermittent low-grade fever, likely due to PE/DVT. Completed antibiotics for pneumonia (10-day cefepime course on 12/15/2019). #Acute hypoxemic respiratory failure: Likely secondary to pneumonia/PE, COVID-19 testing negative x 2. Remains intubated. #Bilateral pneumonia: COVID-19 negative twice. Culture grew Pseudomonas, pansensitive. Completed abx. Repeat chest x-ray with persistent right base opacity, concerning for possible effusion. CT showed PE. US guided thoracentesis was planned 12/21/2019 but showed minimal effusion, so not done. #CHF: per primary team #COPD: per pulmonary #PE/right DVT: on anticoagulation per primary. Recs: remains stable off antibiotics for the last several days ID will sign off. Please call with questions. Chet Saha MD, FACP [facility] ([facility] C: [phone] O: [phone] F: [phone] Subjective Date of service: 12/25/19 Principal diagnosis: Ac hypoxemic resp failure; Pneumonia; PUI COVID-19; CHF; COPD; HTN Interval history: No fever. Remains intubated, but awake on the vent. 1 loose BM per RN, no diarrhea as such. Objective - Exam Narrative Exam: Physical Exam: Constitutional: opens eyes, intubated, on the vent Head, Ears, Nose: Normocephalic, atraumatic. External ears, nose normal Eyes: Conjunctivae/corneas clear. No icterus. No ptosis. Neck: intubated Oral: intubated Cardiovascular: S1, S2 + Respiratory: AE fair bilaterally and equal GI: Soft, bowel sounds + Musculoskeletal: No pedal edema, no cyanosis. Skin: No rash or abscess Hem/Lymphatic: No palpable cervical or supraclavicular nodes. No lymphangitis Psych: no agitation Neurological: follows basic commands, intubated, on the vent, exam limited - Constitutional Vitals: Vital Signs Temp Pulse Resp BP Pulse Ox 97.9 F 95 H 24 101/77 97 12/25/19 11:33 12/25/19 11:46 12/25/19 11:31 12/25/19 11:46 12/25/19 11:46 Temperature -Last 24 Hours Temperature 97.9 F Temperature 97.8 F Temperature 97.5 F Temperature 99.1 F Temperature 98.9 F Temperature 98.1 F - Labs CBC & Chem 7: 12/25/19 04:18 12/25/19 04:18 Labs: Abnormal lab results 12/24/19 12/24/19 12/24/19 Range/Units 12:13 16:50 17:53 WBC (4.5-11.0) K/mm3 RBC (3.65-5.03) M/mm3 Hgb (11.8-15.2) gm/dl Hct (35.5-45.6) % RDW (13.2-15.2) % [place] % (Auto) (0.0-7.3) % [place] # (Auto) (0.0-0.8) K/mm3 Seg Neutrophils % (40.0-70.0) % Seg Neutrophils # (1.8-7.7) K/mm3 Heparin Anti-Xa Level 0.16 L (0.3-0.7) U.I./ml Carbon Dioxide (22-30) mmol/L BUN (9-20) mg/dL Creatinine (0.8-1.3) mg/dL Glucose (75-100) mg/dL POC Glucose 124 H 164 H (70-105) 12/25/19 12/25/19 12/25/19 Range/Units 00:14 04:18 04:18 WBC 12.9 H (4.5-11.0) K/mm3 RBC 3.30 L (3.65-5.03) M/mm3 Hgb 9.1 L (11.8-15.2) gm/dl Hct 28.8 L (35.5-45.6) % RDW 16.4 H (13.2-15.2) % [place] % (Auto) 7.8 H (0.0-7.3) % [place] # (Auto) 1.0 H (0.0-0.8) K/mm3 Seg Neutrophils % 75.5 H (40.0-70.0) % Seg Neutrophils # 9.7 H (1.8-7.7) K/mm3 Heparin Anti-Xa Level (0.3-0.7) U.I./ml Carbon Dioxide 33 H (22-30) mmol/L BUN 27 H (9-20) mg/dL Creatinine 0.6 L (0.8-1.3) mg/dL Glucose 132 H (75-100) mg/dL POC Glucose 148 H (70-105) 12/25/19 Range/Units 05:38 WBC (4.5-11.0) K/mm3 RBC (3.65-5.03) M/mm3 Hgb (11.8-15.2) gm/dl Hct (35.5-45.6) % RDW (13.2-15.2) % [place] % (Auto) (0.0-7.3) % [place] # (Auto) (0.0-0.8) K/mm3 Seg Neutrophils % (40.0-70.0) % Seg Neutrophils # (1.8-7.7) K/mm3 Heparin Anti-Xa Level (0.3-0.7) U.I./ml Carbon Dioxide (22-30) mmol/L BUN (9-20) mg/dL Creatinine (0.8-1.3) mg/dL Glucose (75-100) mg/dL POC Glucose 152 H (70-105)
[2019-12-25] MEDS: LORazepam 2 MG/ML VIAL IV PRN ×2 (12:30→18:31)
--- NOTE | 2019-12-25 14:29 | Progress Note ---
Assessment and Plan -Acute LLL PE -Acute RLE DVT -Persistent fevers; secondary to sepsis and acute PE/DVT -Severe sepsis; secondary to bilateral pneumonia, persistent fevers -Acute hypoxemic respiratory failure, on vent unable to wean -Bilateral pneumonia, community acquired, -Aspiration Pneumonia -Sustained SVT, on amiodarone -Acute on chronic systolic congestive heart failure -History of cerebrovascular accident. -Tobacco use disorder -Alcohol abuse with DT -Acute chronic obstructive pulmonary disease exacerbation. -Hypertension and hypertensive urgency at presentation. -History of arthritis. -Paroxysmal atrial fibrillation -Leukocytosis with possible sepsis. -Lactic acidosis. -Bleeding from ET tube -Oropharyngeal dysphagia -S/P Knee surgery -History of peptic Ulcer Surgery -DVT prophylaxis COVID-19 test; 11/24/2019; negative 11/26/2019; negative Plan Continue ventilatory support Wean as tolerated as per critical care Completed abx, ID following Aspiration precautions Continue amiodarone and metoprolol for suppression of paroxysmal atrial fibrillation. Anticoagulation currently with intravenous heparin. thoracentesis cancelled as not much fluid to drawn May need trach and PEG DVT/GI prophy Heparin/Protonix Plan of care reviewed with the patient's nurse Closely monitor the patient and adjust management as needed The high probability of a clinically significant, sudden or life threatening deterioration of the [Respiratory, cardiovascular & neurological] system(s) required my full and direct attention, intervention and personal management. The aggregate critical care time was [33] minutes without overlap. Time includes spent on [x] Data Review and interpretation [x] Patient assessment and monitoring of vital signs [x] Documentation [x] Medication orders and management Brief History Patient is a 64-year-old male with known history of hypertension, COPD, history of coronary artery disease, CHF with ejection fraction of 20 to 25% in August 2018 presenting to the emergency room via EMS complaining of shortness of breath. Patient was found to be hypoxic and in respiratory distress. Patient was placed on CPAP in route to the hospital. Oxygen saturation was said to be 88%. Started on Solu-Medrol, Lasix and magnesium in ED, patient was also found to be lethargic with an oxygen saturation of about 91% on CPAP. He was subsequently intubated. Work-up in the emergency room including chest x-ray reveals bilateral pneumonia. He had an elevated white count of 14 and also had an elevated BNP. Patient to be admitted to the ICU and placed on empiric IV antibiotics for pneumonia. He will also be tested positive for COVID-19 and placed on isolation precautions. Rmains intubated on ventilatory support, sputum cultures positive for Pseudomonas, ID changed antibiotics to cefepime and Vanco. 11/25: Leukocytosis improving. Continue current management anticipate extubation possible today. 11/26. Still intubated. Failed SBT yesterday. Repeat COVID-19 test is negative. 11/27. CT head ordered for possible neuro status change is negative. More responsive as the day progressed as per RN. Chest xray today shows interval improvement. He is still on antibiotics - will complete regimen today. 11/28: Considering difficult extubation and severe cardiomyopathy, will obtain cardiology consult. Aspiration precautions, tube feeds held, continue antibiotics. 11/29: Still with intermittent fever but improving imaging, continue diuresis. 11/30; Extremely agitated when placed on PSV- SVT, hypertension. Patiet acknowledged that he drinks. IV Ativan given, CIWA protocol initiated. 12 lead ordered showed SVT, one dose of amiodarone ordered. continue to follow up cardiology recommendation 12/01: Patient remains on mechanical ventilation, getting SBT trial. Remains in SVT, started on amiodarone drip by cardiology. 12/02; patient is on mechanical ventilation and on spontaneous breathing trial. Cardiology started the patient on PO amiodarone. Patient is on cefepime. 12/03: patient is on mechanical ventilation. Cardiology started the patient on PO amiodarone for SVT. Patient is on cefepime, no fever overnight. 12/04: Patient is sedated and on mechanical ventilation. Patient had fever yesterday afternoon 102.3, ID changed his cefepime to meropenem. Heart rate is controlled, cardiology is following. Patient has paroxysmal atrial fibrillation and on amiodarone and metoprolol, subcu heparin for anticoagulation and will need oral anticoagulation once stable. 12/05: Sputum cultures positive for Pseudomonas, ID following 12/06; patient is febrile T-max 24 hours 102 F ,ID change antibiotics to cefepime and Vancomycin 12/07: resumed care. Na 149 today, start on 1/2 NS. cont current care 12/08: remains in a stable sinus rhythm and stable blood pressure, continue supportive care. wean off vent as tolerated. persistent fever - ordered CTA chest 12/09: noted bloody discharges from ET tube last night. CTA and LE venous doppler positive for acute PE and DVT. resume heparin drip, consult vascular for possible EKOS/ IVC filter. monitor h/h. cont SBT trial, wean off vent as tolerated. called but no answer 12/10: cont heparin drip for acute PE and DVT, follow vascular recommendation. monitor h/h, wean off vent as tolerated 12/11: o/n had bleeding from ET tube, cont to monitor h/h. vascular recommending medical Mx. called ; Nicolle Araiza [phone]. 12/12: H&H remained stable, patient on heparin drip. Discussed with yesterday. Discussed with critical care attending. Patient not tolerating SBT trial. Continue to wean off from vent as tolerated, follow clinically. Tolerating tube feeding 12/13: Continue heparin drip, wean off from vent as tolerated. Discussed with pulmonary attending if no improvement by the end of 3 weeks of intubation patient may need trach and PEG. Continue to provide supportive care, follow CBC and BMP. 12/14: Stop cefepime today, wean off from vent as tolerated. cont Heparin infusio n, while monitoring for bleeding 12/15: Patient is not tolerating SBT trial, becoming apnic on CPAP. May need to place on trach and PEG. Continue heparin drip, monitor off antibiotics 12/16. Still maintained on vent. May need PEG and trach as her has been failed SBTs 12/17. Had low UO overnight. Started on tamsulosin. May need PEG and trach - defer to pulm. 12/18-. Plan for US thoracentesis to help with weaning. Remains on heparin drip for VTE. 12/20. Discussed with spouse today. He will get thoracentesis today. INR/PTT ordered. Heparin drip held. 12/21: planned for trach and PEG, cont supportive care, thoracentesis cancelled 12/22: cont supportive care, wean off from vent, daily SBT 12/23: tolerating SBT, possible extubation soon. cont supportive care 12/24: wean off vent as tolerated, daily SBT, follow clinically Subjective Date of service: 12/25/19 Principal diagnosis: Ac hypoxemic resp failure; Pneumonia; PUI COVID-19; CHF; COPD; HTN Interval history: Patient seen and examined Patient intubated on mechanical ventilation Discussed with RN at the bedside H/H STABLE, patient remains on heparin drip Objective - Exam Narrative Exam: General appearance: Present: well-nourished, other (Intubated), opens eyes to names and follows minor command - EENT Eyes: Present: PERRL, EOM intact. Absent: scleral icterus ENT: clear oral mucosa, dentition normal - Neck Neck: Present: supple, normal ROM - Respiratory Respiratory effort: normal, mechanical ventilation Respiratory: bilateral: rales - Cardiovascular Rhythm: regular Heart Sounds: Present: S1 & S2, tachycardic. Absent: gallop, systolic murmur, diastolic murmur, rub - Extremities Extremities: no ischemia, pulses intact, pulses symmetrical, No edema, Full ROM Peripheral Pulses: within normal limits - Abdominal General gastrointestinal: Present: soft, non-tender, non-distended, normal bowel sounds. Absent: mass - Integumentary Integumentary: Present: clear, warm, dry. Absent: rash - Musculoskeletal Musculoskeletal: no joint swelling - Psychiatric Psychiatric: sedated Neurology: no focal deficits - Constitutional Vitals: Vital Signs - 12hr 12/25/19 12/25/19 12/25/19 02:31 03:00 03:23 Temperature 97.5 F L Pulse Rate 84 84 Pulse Rate [ From Monitor] Respiratory Rate Blood Pressure 101/75 106/82 O2 Sat by Pulse 98 100 Oximetry 12/25/19 12/25/19 12/25/19 03:31 04:00 04:05 Temperature Pulse Rate 84 87 84 Pulse Rate [ 87 From Monitor] Respiratory Rate Blood Pressure 106/82 106/81 106/81 O2 Sat by Pulse 98 97 97 Oximetry 12/25/19 12/25/19 12/25/19 04:31 05:00 05:31 Temperature Pulse Rate 86 84 90 Pulse Rate [ From Monitor] Respiratory Rate Blood Pressure 106/82 108/79 108/79 O2 Sat by Pulse 97 100 98 Oximetry 12/25/19 12/25/19 12/25/19 06:00 06:13 06:31 Temperature Pulse Rate 84 90 86 Pulse Rate [ From Monitor] Respiratory 22 Rate Blood Pressure 105/78 105/78 O2 Sat by Pulse 96 Oximetry 12/25/19 12/25/19 12/25/19 07:00 07:31 08:00 Temperature 97.8 F Pulse Rate 84 83 83 Pulse Rate [ 83 From Monitor] Respiratory 22 42 H 26 H Rate Blood Pressure 101/74 101/74 103/73 O2 Sat by Pulse 95 96 97 Oximetry 12/25/19 12/25/19 12/25/19 08:14 08:31 09:00 Temperature Pulse Rate 83 93 H 87 Pulse Rate [ From Monitor] Respiratory 23 23 Rate Blood Pressure 103/73 103/73 104/76 O2 Sat by Pulse 97 96 Oximetry 12/25/19 12/25/19 12/25/19 09:31 10:00 10:15 Temperature Pulse Rate 85 86 89 Pulse Rate [ From Monitor] Respiratory 22 18 21 Rate Blood Pressure 104/76 102/74 102/74 O2 Sat by Pulse 95 Oximetry 12/25/19 12/25/19 12/25/19 10:31 11:00 11:31 Temperature Pulse Rate 89 89 87 Pulse Rate [ From Monitor] Respiratory 25 H 23 24 Rate Blood Pressure 102/74 101/77 102/74 O2 Sat by Pulse 95 95 Oximetry 12/25/19 12/25/19 12/25/19 11:33 11:46 12:00 Temperature 97.9 F Pulse Rate 95 H 86 Pulse Rate [ 86 From Monitor] Respiratory 27 H Rate Blood Pressure 101/77 102/74 O2 Sat by Pulse 97 92 Oximetry 12/25/19 12/25/19 12/25/19 12:31 13:01 13:31 Temperature Pulse Rate 105 H 93 H 89 Pulse Rate [ From Monitor] Respiratory 26 H 23 21 Rate Blood Pressure 102/74 137/82 137/82 O2 Sat by Pulse 99 89 96 Oximetry 12/25/19 12/25/19 13:59 14:00 Temperature Pulse Rate 81 81 Pulse Rate [ From Monitor] Respiratory 20 Rate Blood Pressure 137/82 120/76 O2 Sat by Pulse 90 Oximetry - Labs CBC & Chem 7: 12/25/19 04:18 12/26/19 00:18 Labs: Abnormal lab results 12/24/19 12/24/19 12/25/19 Range/Units 16:50 17:53 00:14 WBC (4.5-11.0) K/mm3 RBC (3.65-5.03) M/mm3 Hgb (11.8-15.2) gm/dl Hct (35.5-45.6) % RDW (13.2-15.2) % [place] % (Auto) (0.0-7.3) % [place] # (Auto) (0.0-0.8) K/mm3 Seg Neutrophils % (40.0-70.0) % Seg Neutrophils # (1.8-7.7) K/mm3 Heparin Anti-Xa Level 0.16 L (0.3-0.7) U.I./ml Carbon Dioxide (22-30) mmol/L BUN (9-20) mg/dL Creatinine (0.8-1.3) mg/dL Glucose (75-100) mg/dL POC Glucose 164 H 148 H (70-105) 12/25/19 12/25/19 12/25/19 Range/Units 04:18 04:18 05:38 WBC 12.9 H (4.5-11.0) K/mm3 RBC 3.30 L (3.65-5.03) M/mm3 Hgb 9.1 L (11.8-15.2) gm/dl Hct 28.8 L (35.5-45.6) % RDW 16.4 H (13.2-15.2) % [place] % (Auto) 7.8 H (0.0-7.3) % [place] # (Auto) 1.0 H (0.0-0.8) K/mm3 Seg Neutrophils % 75.5 H (40.0-70.0) % Seg Neutrophils # 9.7 H (1.8-7.7) K/mm3 Heparin Anti-Xa Level (0.3-0.7) U.I./ml Carbon Dioxide 33 H (22-30) mmol/L BUN 27 H (9-20) mg/dL Creatinine 0.6 L (0.8-1.3) mg/dL Glucose 132 H (75-100) mg/dL POC Glucose 152 H (70-105) HEART Score - HEART Score Troponin: Troponin T < 0.010 ng/mL (0.00-0.029) 11/24/19 02:53
[2019-12-25] MEDS: POLYETHYLENE GLYCOL 3350 17 GM POWDER PO SCH (21:24)
[2019-12-25] MEDS: TAMSULOSIN 0.4 MG CAP PO SCH (21:40)
[2019-12-26 01:30] LABS: Blood Urea Nitrogen 25 mg/dL (9-20); Calcium 9.2 mg/dL (8.4-10.2); Hemolysis Index 3
[2019-12-26 01:34] LABS: BUN/Creatinine Ratio 42
[2019-12-26] MEDS: INSULIN LISPRO 100 UNIT/ML VIAL 3 mL SUB-Q SCH ×4 (02:04→18:36)
--- NOTE | 2019-12-26 02:24 | XRay Report ---
CHEST 1 VIEW INDICATION: resp failure, bilateral alveolar infiltrates COMPARISON: 12/22/2019 FINDINGS: Support devices: Unchanged. Heart: Stable. Lungs/Pleura: Diffuse pulmonary disease, suggesting pulmonary edema, persists and appears to have wor sened slightly on the right. IMPRESSION: 1. Slight worsening of the pulmonary edema. Signer Name: Stas Baig MD Signed: 12/26/2019 2:20 AM Workstation Name: [id number]
[2019-12-26] MEDS: METOPROLOL TARTRATE 50 MG TAB PO SCH ×3 (06:18→21:28)
[2019-12-26] MEDS: QUEtiapine 200 MG TAB PO SCH ×2 (09:05→21:28)
[2019-12-26] MEDS: DOCUSATE SODIUM 100 MG/10 ML ORAL LIQD FEEDTUBE SCH (09:05)
[2019-12-26] MEDS: AMIODARONE 200 MG TAB PO SCH ×2 (09:05→21:28)
[2019-12-26] MEDS: FAMOTIDINE 20 MG TAB PO SCH ×2 (09:05→21:28)
[2019-12-26] MEDS: QUEtiapine 100 MG TAB PO SCH (11:34)
--- NOTE | 2019-12-26 14:35 | Progress Note ---
Assessment and Plan -Acute LLL PE -Acute RLE DVT -Persistent fevers; secondary to sepsis and acute PE/DVT -Severe sepsis; secondary to bilateral pneumonia, persistent fevers -Acute hypoxemic respiratory failure, on vent unable to wean -Bilateral pneumonia, community acquired, -Aspiration Pneumonia -Sustained SVT, on amiodarone -Acute on chronic systolic congestive heart failure -History of cerebrovascular accident. -Tobacco use disorder -Alcohol abuse with DT -Acute chronic obstructive pulmonary disease exacerbation. -Hypertension and hypertensive urgency at presentation. -History of arthritis. -Paroxysmal atrial fibrillation -Leukocytosis with possible sepsis. -Lactic acidosis. -Bleeding from ET tube -Oropharyngeal dysphagia -S/P Knee surgery -History of peptic Ulcer Surgery -DVT prophylaxis COVID-19 test; 11/24/2019; negative 11/26/2019; negative Plan Continue ventilatory support Wean as tolerated as per critical care Completed abx, ID following Aspiration precautions Continue amiodarone and metoprolol for suppression of paroxysmal atrial fibrillation. Anticoagulation currently with intravenous heparin. thoracentesis cancelled as not much fluid to drawn May need trach and PEG DVT/GI prophy Heparin/Protonix Plan of care reviewed with the patient's nurse Closely monitor the patient and adjust management as needed The high probability of a clinically significant, sudden or life threatening deterioration of the [Respiratory, cardiovascular & neurological] system(s) required my full and direct attention, intervention and personal management. The aggregate critical care time was [33] minutes without overlap. Time includes spent on [x] Data Review and interpretation [x] Patient assessment and monitoring of vital signs [x] Documentation [x] Medication orders and management Brief History Patient is a 64-year-old male with known history of hypertension, COPD, history of coronary artery disease, CHF with ejection fraction of 20 to 25% in August 2018 presenting to the emergency room via EMS complaining of shortness of breath. Patient was found to be hypoxic and in respiratory distress. Patient was placed on CPAP in route to the hospital. Oxygen saturation was said to be 88%. Started on Solu-Medrol, Lasix and magnesium in ED, patient was also found to be lethargic with an oxygen saturation of about 91% on CPAP. He was subsequently intubated. Work-up in the emergency room including chest x-ray reveals bilateral pneumonia. He had an elevated white count of 14 and also had an elevated BNP. Patient admitted to the ICU and placed on empiric IV antibiotics for pneumonia. He tested negative for COVID-19 and placed on isolation precautions. Remains intubated on ventilatory support, sputum cultures positive for Pseudomonas, ID treated with cefepime and Vanco. His hospital course became complicated with acute PE, DVT, paroxysmal atrial fib - placed on heparin drip. Patient difficult to wean off, remains intubated. 11/25: Leukocytosis improving. Continue current management anticipate extubation possible today. 11/26. Still intubated. Failed SBT yesterday. Repeat COVID-19 test is negative. 11/27. CT head ordered for possible neuro status change is negative. More responsive as the day progressed as per RN. Chest xray today shows interval improvement. He is still on antibiotics - will complete regimen today. 11/28: Considering difficult extubation and severe cardiomyopathy, will obtain cardiology consult. Aspiration precautions, tube feeds held, continue antibiotics. 11/29: Still with intermittent fever but improving imaging, continue diuresis. 11/30; Extremely agitated when placed on PSV- SVT, hypertension. Patiet acknow ledged that he drinks. IV Ativan given, CIWA protocol initiated. 12 lead ordered showed SVT, one dose of amiodarone ordered. continue to follow up cardiology recommendation 12/01: Patient remains on mechanical ventilation, getting SBT trial. Remains in SVT, started on amiodarone drip by cardiology. 12/02; patient is on mechanical ventilation and on spontaneous breathing trial. Cardiology started the patient on PO amiodarone. Patient is on cefepime. 12/03: patient is on mechanical ventilation. Cardiology started the patient on PO amiodarone for SVT. Patient is on cefepime, no fever overnight. 12/04: Patient is sedated and on mechanical ventilation. Patient had fever yesterday afternoon 102.3, ID changed his cefepime to meropenem. Heart rate is controlled, cardiology is following. Patient has paroxysmal atrial fibrillation and on amiodarone and metoprolol, subcu heparin for anticoagulation and will need oral anticoagulation once stable. 12/05: Sputum cultures positive for Pseudomonas, ID following 12/06; patient is febrile T-max 24 hours 102 F ,ID change antibiotics to cefepime and Vancomycin 12/07: resumed care. Na 149 today, start on 03/26 NS. cont current care 12/08: remains in a stable sinus rhythm and stable blood pressure, continue supportive care. wean off vent as tolerated. persistent fever - ordered CTA chest 12/09: noted bloody discharges from ET tube last night. CTA and LE venous doppler positive for acute PE and DVT. resume heparin drip, consult vascular for possible EKOS/ IVC filter. monitor h/h. cont SBT trial, wean off vent as tolerated. called but no answer 12/10: cont heparin drip for acute PE and DVT, follow vascular recommendation. monitor h/h, wean off vent as tolerated 12/11: o/n had bleeding from ET tube, cont to monitor h/h. vascular recommending medical Mx. called ; Nicolle Araiza [phone]. 12/12: H&H remained stable, patient on heparin drip. Discussed with yesterday. Discussed with critical care attending. Patient not tolerating SBT trial. Continue to wean off from vent as tolerated, follow clinically. Tolerating tube feeding 12/13: Continue heparin drip, wean off from vent as tolerated. Discussed with pulmonary attending if no improvement by the end of 3 weeks of intubation patient may need trach and PEG. Continue to provide supportive care, follow CBC and BMP. 12/14: Stop cefepime today, wean off from vent as tolerated. cont Heparin infusion, while monitoring for bleeding 12/15: Patient is not tolerating SBT trial, becoming apnic on CPAP. May need to place on trach and PEG. Continue heparin drip, monitor off antibiotics 12/16. Still maintained on vent. May need PEG and trach as her has been failed SBTs 12/17. Had low UO overnight. Started on tamsulosin. May need PEG and trach - defer to pulm. 12/18-. Plan for US thoracentesis to help with weaning. Remains on heparin drip for VTE. 12/20. Discussed with spouse today. He will get thoracentesis today. INR/PTT ordered. Heparin drip held. 12/21: planned for trach and PEG, cont supportive care, thoracentesis cancelled 12/22: cont supportive care, wean off from vent, daily SBT 12/23: tolerating SBT, possible extubation soon. cont supportive care 12/24: wean off vent as tolerated, daily SBT, follow clinically 12/25; cont to monitor, wean off vent as tolerated Subjective Date of service: 12/26/19 Principal diagnosis: Ac hypoxemic resp failure; Pneumonia; PUI COVID-19; CHF; COPD; HTN Interval history: Patient seen and examined Patient intubated on mechanical ventilation Discussed with RN at the bedside H/H STABLE, patient remains on heparin drip Objective - Exam Narrative Exam: General appearance: Present: well-nourished, other (Intubated), opens eyes to n [place] and follows minor command - EENT Eyes: Present: PERRL, EOM intact. Absent: scleral icterus ENT: clear oral mucosa, dentition normal - Neck Neck: Present: supple, normal ROM - Respiratory Respiratory effort: normal, mechanical ventilation Respiratory: bilateral: rales - Cardiovascular Rhythm: regular Heart Sounds: Present: S1 & S2, tachycardic. Absent: gallop, systolic murmur, diastolic murmur, rub - Extremities Extremities: no ischemia, pulses intact, pulses symmetrical, No edema, Full ROM Peripheral Pulses: within normal limits - Abdominal General gastrointestinal: Present: soft, non-tender, non-distended, normal bowel sounds. Absent: mass - Integumentary Integumentary: Present: clear, warm, dry. Absent: rash - Musculoskeletal Musculoskeletal: no joint swelling - Psychiatric Psychiatric: sedated Neurology: no focal deficits - Constitutional Vitals: Vital Signs - 12hr 12/26/19 12/26/19 12/26/19 03:00 03:26 03:28 Temperature 98.9 F Pulse Rate 89 84 Pulse Rate [ From Monitor] Respiratory 13 Rate Blood Pressure 107/81 107/81 O2 Sat by Pulse 93 98 Oximetry 12/26/19 12/26/19 12/26/19 04:00 05:00 06:00 Temperature Pulse Rate 88 83 87 Pulse Rate [ 78 From Monitor] Respiratory 24 22 22 Rate Blood Pressure 107/81 102/72 106/78 O2 Sat by Pulse 98 97 97 Oximetry 12/26/19 12/26/19 12/26/19 06:18 07:00 07:46 Temperature Pulse Rate 87 79 84 Pulse Rate [ From Monitor] Respiratory 24 Rate Blood Pressure 106/78 102/74 102/74 O2 Sat by Pulse 95 96 Oximetry 12/26/19 12/26/19 12/26/19 08:00 09:00 10:00 Temperature 98.3 F Pulse Rate 84 90 94 H Pulse Rate [ 82 From Monitor] Respiratory 22 15 19 Rate Blood Pressure 105/78 107/73 117/79 O2 Sat by Pulse 97 93 88 Oximetry 12/26/19 12/26/19 12/26/19 11:00 11:37 12:00 Temperature 98.4 F Pulse Rate 89 88 93 H Pulse Rate [ 82 From Monitor] Respiratory 21 22 17 Rate Blood Pressure 116/78 116/78 119/75 O2 Sat by Pulse 99 98 89 Oximetry 12/26/19 13:00 Temperature Pulse Rate 95 H Pulse Rate [ From Monitor] Respiratory 21 Rate Blood Pressure 120/81 O2 Sat by Pulse 89 Oximetry - Labs CBC & Chem 7: 12/25/19 04:18 12/26/19 00:18 Labs: Abnormal lab results 12/25/19 12/25/19 12/26/19 Range/Units 11:44 18:29 00:17 Chloride (98-107) mmol/L BUN (9-20) mg/dL Creatinine (0.8-1.3) mg/dL Glucose (75-100) mg/dL POC Glucose 166 H 194 H 151 H (70-105) 12/26/19 12/26/19 12/26/19 Range/Units 00:18 05:36 11:41 Chloride 97.8 L (98-107) mmol/L BUN 25 H (9-20) mg/dL Creatinine 0.6 L (0.8-1.3) mg/dL Glucose 140 H (75-100) mg/dL POC Glucose 156 H 148 H (70-105) HEART Score - HEART Score Troponin: Troponin T < 0.010 ng/mL (0.00-0.029) 11/24/19 02:53
--- NOTE | 2019-12-26 14:39 | Progress Note ---
Assessment and Plan Acute hypoxemic respiratory failure Bilateral pneumonia, community acquired. Acute LLL branch P.E. Acute DVT Person under investigation for COVID-19 infection. Acute congestive heart failure exacerbation. History of cerebrovascular accident. Acute chronic obstructive pulmonary disease exacerbation. Hypertension and hypertensive urgency at presentation. History of arthritis. Leukocytosis. Lactic acidosis. Oropharyngeal dysphagia - await tracheostomy - continue IV Heparin for VTE (Change to oral agent post trach & PEG) - continue care as below otherwise; - continue daily SAT's and SBT assessment as tolerated - continue Flomax dose at 0.8 mg qhs - continue low dose seroquel - COVID isolation per facility protocol - free water for hypernatremia - continue diuresis while following electrolytes / I's & O's - continue to wean oxygen for O2 sat's > 92% - continue bronchodilators with pulmonary hygiene per RT - VAP bundle addressed (Aspiration precautions, HOB >40) - continue to wean per pulmonary driven protocols - sedation target is RASS 0 to -1 - continue prn analgesia per CPOT score - follow clinically re: fever curves / trend WBC - Avoid delirium (no benzodiazepines if they can be avoided) - Maintain sleep-wake cycle - enteral nutrition at goal rate as tolerated - continue accucheck's with glycemic control per SSI for target blood glucose goal of 140-180 mg/dL while critically ill; Avoid hypoglycemia - for VTE he is on IV Heparin - continue stress ulcer prophylaxis with Famotidine - continue mobility protocols for pressure ulcer prophylaxis - continue fall precautions - continue wound care management per RN / WCT - Supportive transfusions to keep HgB>7g/dL - CXR's and ABG's prn - Continue to monitor neurologic function - Continue chronic home medications - Continue all supportive care ........ re-evaluate in am & prn CONDITION: CRITICAL PROGNOSIS: GUARDED CODE STATUS: FULL CODE The high probability of a clinically significant, sudden or life threatening deterioration of the [Respiratory, cardiovascular & neurological] system(s) required my full and direct attention, intervention and personal management. The aggregate critical care time was [31] minutes without overlap. Time includes spent on [x] Data Review and interpretation [x] Patient assessment and monitoring of vital signs [x] Documentation [x] Medication orders and management Subjective Date of service: 12/26/19 Principal diagnosis: Ac hypoxemic resp failure; Pneumonia; PUI COVID-19; CHF; COPD; HTN Interval history: Patient is seen today for: Acute hypoxemic respiratory failure; Adan. Pneumonia (CAP); PUI COVID-19 infection; AE-CHF; AE-COPD; H/O CVA; HTN Seen and examined at bedside; 24 hour events reviewed; nursing and respiratory care staff consulted; no adverse overnight events reported to me; resting peacefully in bed; remains on MVS; tolerated only a couple hours on MVS; no emesis or overt aspiration Objective Vital Signs - 12hr 12/26/19 12/26/19 12/26/19 03:00 03:26 03:28 Temperature 98.9 F Pulse Rate 89 84 Pulse Rate [ From Monitor] Respiratory 13 Rate Blood Pressure 107/81 107/81 O2 Sat by Pulse 93 98 Oximetry 12/26/19 12/26/19 12/26/19 04:00 05:00 06:00 Temperature Pulse Rate 88 83 87 Pulse Rate [ 78 From Monitor] Respiratory 24 22 22 Rate Blood Pressure 107/81 102/72 106/78 O2 Sat by Pulse 98 97 97 Oximetry 12/26/19 12/26/19 12/26/19 06:18 07:00 07:46 Temperature Pulse Rate 87 79 84 Pulse Rate [ From Monitor] Respiratory 24 Rate Blood Pressure 106/78 102/74 102/74 O2 Sat by Pulse 95 96 Oximetry 12/26/19 12/26/19 12/26/19 08:00 09:00 10:00 Temperature 98.3 F Pulse Rate 84 90 94 H Pulse Rate [ 82 From Monitor] Respiratory 22 15 19 Rate Blood Pressure 105/78 107/73 117/79 O2 Sat by Pulse 97 93 88 Oximetry 12/26/19 12/26/19 12/26/19 11:00 11:37 12:00 Temperature 98.4 F Pulse Rate 89 88 93 H Pulse Rate [ 82 From Monitor] Respiratory 21 22 17 Rate Blood Pressure 116/78 116/78 119/75 O2 Sat by Pulse 99 98 89 Oximetry 12/26/19 13:00 Temperature Pulse Rate 95 H Pulse Rate [ From Monitor] Respiratory 21 Rate Blood Pressure 120/81 O2 Sat by Pulse 89 Oximetry Constitutional: no acute distress, agitated, other (elderly and obese male, normocephalic with mildly increased respiratory effort at rest on MVS) Eyes: non-icteric ENT: oropharynx moist, other (ETT 24 cm JASON) Neck: supple, no JVD Effort: mildly labored Ascultation: Bilateral: diminished breath sounds, rhonchi Percussion: Bilateral: not dull Cardiovascular: irregular rhythm Gastrointestinal: normoactive bowel sounds, soft, non-tender, non-distended Integumentary: normal Extremities: no cyanosis, no edema, pulses normal, no ischemia or petechiae Neurologic: non-focal exam (moves all extremities with extreme agitation), pupils equal and round, motor strength normal and, other (sedated lightly) Psychiatric: anxious CBC and BMP: 12/25/19 04:18 12/26/19 00:18 ABG, PT/INR, D-dimer: ABG ABG pH 7.418 (7.320-7.450) 12/22/19 03:22 POC ABG pCO2 52.9 mmHg (32.0-48.0) H 12/22/19 03:22 ABG pCO2 48.7 mm Hg 12/19/19 09:20 POC ABG pO2 52.3 mmHg (83-108) L 12/22/19 03:22 ABG pO2 62.6 mm Hg (80.0-90.0) L 12/19/19 09:20 POC ABG HCO3 33.4 12/22/19 03:22 ABG O2 Saturation 93.8 % (95.0-99.0) L 12/19/19 09:20 PT/INR, D-dimer PT 13.8 Sec. (12.2-14.9) 12/21/19 10:13 INR 1.05 (0.87-1.13) 12/21/19 10:13 Abnormal lab findings: Abnormal Labs 11/24/19 11/24/19 11/24/19 02:53 02:53 03:45 WBC 14.3 H RBC Hgb Hct MCHC RDW 17.2 H Lymph % (Auto) [place] % (Auto) [place] # Eos # [place] # (Auto) Eos # (Auto) Seg Neutrophils % Seg Neuts % (Manual) Baso # (Auto) Lymphocytes % (Manual) Monocytes % (Manual) Eosinophils % (Manual) Basophils % (Manual) Seg Neutrophils # Seg Neutrophils # Man 8.3 H Lymphocytes # (Manual) Monocytes # (Manual) 0.9 H Eosinophils # (Manual) Nucleated RBC % Basophils # (Manual) APTT Heparin Anti-Xa Level ABG pH 7.313 L POC ABG pO2 ABG pO2 102.8 H ABG HCO3 ABG O2 Saturation ABG Base Excess -2.9 L POC ABG pCO2 ABG Hemoglobin ABG Oxyhemoglobin Oxyhemoglobin 93.9 L Sodium Potassium Chloride Carbon Dioxide BUN Creatinine Glucose 195 H POC Glucose Lactic Acid Calcium Phosphorus Magnesium AST ALT Lactate Dehydrogenase CK-MB (CK-2) 4.3 H C-Reactive Protein NT-Pro-B Natriuret Pep 1181 H Total Protein Albumin Urine WBC (Auto) 11/24/19 11/24/19 11/24/19 04:53 04:53 10:37 WBC RBC Hgb Hct MCHC RDW Lymph % (Auto) [place] % (Auto) [place] # Eos # [place] # (Auto) Eos # (Auto) Seg Neutrophils % Seg Neuts % (Manual) Baso # (Auto) Lymphocytes % (Manual) Monocytes % (Manual) Eosinophils % (Manual) Basophils % (Manual) Seg Neutrophils # Seg Neutrophils # Man Lymphocytes # (Manual) Monocytes # (Manual) Eosinophils # (Manual) Nucleated RBC % Basophils # (Manual) APTT Heparin Anti-Xa Level ABG pH POC ABG pO2 ABG pO2 ABG HCO3 ABG O2 Saturation ABG Base Excess POC ABG pCO2 ABG Hemoglobin ABG Oxyhemoglobin Oxyhemoglobin Sodium Potassium Chloride Carbon Dioxide BUN Creatinine Glucose 162 H POC Glucose Lactic Acid 2.40 H* 2.50 H* Calcium Phosphorus Magnesium AST ALT Lactate Dehydrogenase 240 H CK-MB (CK-2) C-Reactive Protein NT-Pro-B Natriuret Pep Total Protein Albumin Urine WBC (Auto) 11/24/19 11/24/19 11/24/19 12:21 14:50 19:54 WBC RBC Hgb Hct MCHC RDW Lymph % (Auto) [place] % (Auto) [place] # Eos # [place] # (Auto) Eos # (Auto) Seg Neutrophils % Seg Neuts % (Manual) Baso # (Auto) Lymphocytes % (Manual) Monocytes % (Manual) Eosinophils % (Manual) Basophils % (Manual) Seg Neutrophils # Seg Neutrophils # Man Lymphocytes # (Manual) Monocytes # (Manual) Eosinophils # (Manual) Nucleated RBC % Basophils # (Manual) APTT Heparin Anti-Xa Level ABG pH POC ABG pO2 ABG pO2 ABG HCO3 ABG O2 Saturation ABG Base Excess POC ABG pCO2 ABG Hemoglobin ABG Oxyhemoglobin Oxyhemoglobin Sodium Potassium Chloride Carbon Dioxide BUN Creatinine Glucose POC Glucose 145 H 143 H 124 H Lactic Acid Calcium Phosphorus Magnesium AST ALT Lactate Dehydrogenase CK-MB (CK-2) C-Reactive Protein NT-Pro-B Natriuret Pep Total Protein Albumin Urine WBC (Auto) 11/25/19 11/25/19 11/25/19 00:18 03:18 05:11 WBC 13.7 H RBC Hgb Hct MCHC RDW 17.1 H Lymph % (Auto) 10.8 L [place] % (Auto) 8.7 H [place] # 1.2 H Eos # [place] # (Auto) Eos # (Auto) Seg Neutrophils % 80.2 H Seg Neuts % (Manual) Baso # (Auto) Lymphocytes % (Manual) Monocytes % (Manual) Eosinophils % (Manual) Basophils % (Manual) Seg Neutrophils # 11.0 H Seg Neutrophils # Man Lymphocytes # (Manual) Monocytes # (Manual) Eosinophils # (Manual) Nucleated RBC % Basophils # (Manual) APTT Heparin Anti-Xa Level ABG pH 7.333 L POC ABG pO2 ABG pO2 61.2 L ABG HCO3 ABG O2 Saturation 90.2 L ABG Base Excess POC ABG pCO2 ABG Hemoglobin 13.7 L ABG Oxyhemoglobin Oxyhemoglobin 88.2 L Sodium Potassium Chloride Carbon Dioxide BUN Creatinine Glucose POC Glucose 109 H Lactic Acid Calcium Phosphorus Magnesium AST ALT Lactate Dehydrogenase CK-MB (CK-2) C-Reactive Protein NT-Pro-B Natriuret Pep Total Protein Albumin Urine WBC (Auto) 11/25/19 11/25/19 11/26/19 05:11 11:40 03:12 WBC RBC Hgb Hct MCHC RDW Lymph % (Auto) [place] % (Auto) [place] # Eos # [place] # (Auto) Eos # (Auto) Seg Neutrophils % Seg Neuts % (Manual) Baso # (Auto) Lymphocytes % (Manual) Monocytes % (Manual) Eosinophils % (Manual) Basophils % (Manual) Seg Neutrophils # Seg Neutrophils # Man Lymphocytes # (Manual) Monocytes # (Manual) Eosinophils # (Manual) Nucleated RBC % Basophils # (Manual) APTT Heparin Anti-Xa Level ABG pH POC ABG pO2 ABG pO2 155.1 H ABG HCO3 27.8 H ABG O2 Saturation ABG Base Excess POC ABG pCO2 ABG Hemoglobin 12.2 L ABG Oxyhemoglobin Oxyhemoglobin Sodium Potassium Chloride Carbon Dioxide BUN 23 H Creatinine Glucose 110 H POC Glucose 108 H Lactic Acid Calcium Phosphorus Magnesium AST ALT Lactate Dehydrogenase CK-MB (CK-2) C-Reactive Protein NT-Pro-B Natriuret Pep Total Protein Albumin Urine WBC (Auto) 11/26/19 11/26/19 11/26/19 06:17 10:43 10:43 WBC 11.4 H RBC Hgb Hct MCHC RDW 17.1 H Lymph % (Auto) [place] % (Auto) [place] # Eos # [place] # (Auto) Eos # (Auto) Seg Neutrophils % Seg Neuts % (Manual) Baso # (Auto) Lymphocytes % (Manual) Monocytes % (Manual) Eosinophils % (Manual) Basophils % (Manual) Seg Neutrophils # Seg Neutrophils # Man Lymphocytes # (Manual) Monocytes # (Manual) Eosinophils # (Manual) Nucleated RBC % Basophils # (Manual) APTT Heparin Anti-Xa Level ABG pH POC ABG pO2 ABG pO2 ABG HCO3 ABG O2 Saturation ABG Base Excess POC ABG pCO2 ABG Hemoglobin ABG Oxyhemoglobin Oxyhemoglobin Sodium Potassium Chloride Carbon Dioxide BUN 29 H Creatinine Glucose POC Glucose 107 H Lactic Acid Calcium Phosphorus Magnesium AST ALT Lactate Dehydrogenase CK-MB (CK-2) C-Reactive Protein NT-Pro-B Natriuret Pep Total Protein Albumin Urine WBC (Auto) 11/26/19 11/27/19 11/27/19 17:11 01:53 04:11 WBC RBC Hgb Hct MCHC RDW Lymph % (Auto) [place] % (Auto) [place] # Eos # [place] # (Auto) Eos # (Auto) Seg Neutrophils % Seg Neuts % (Manual) Baso # (Auto) Lymphocytes % (Manual) Monocytes % (Manual) Eosinophils % (Manual) Basophils % (Manual) Seg Neutrophils # Seg Neutrophils # Man Lymphocytes # (Manual) Monocytes # (Manual) Eosinophils # (Manual) Nucleated RBC % Basophils # (Manual) APTT Heparin Anti-Xa Level ABG pH POC ABG pO2 ABG pO2 ABG HCO3 29.2 H ABG O2 Saturation ABG Base Excess 3.4 H POC ABG pCO2 ABG Hemoglobin 13.3 L ABG Oxyhemoglobin Oxyhemoglobin 94.5 L Sodium Potassium Chloride Carbon Dioxide BUN Creatinine Glucose POC Glucose 113 H 108 H Lactic Acid Calcium Phosphorus Magnesium AST ALT Lactate Dehydrogenase CK-MB (CK-2) C-Reactive Protein NT-Pro-B Natriuret Pep Total Protein Albumin Urine WBC (Auto) 11/27/19 11/28/19 11/28/19 05:27 05:00 05:25 WBC RBC Hgb Hct MCHC RDW Lymph % (Auto) [place] % (Auto) [place] # Eos # [place] # (Auto) Eos # (Auto) Seg Neutrophils % Seg Neuts % (Manual) Baso # (Auto) Lymphocytes % (Manual) Monocytes % (Manual) Eosinophils % (Manual) Basophils % (Manual) Seg Neutrophils # Seg Neutrophils # Man Lymphocytes # (Manual) Monocytes # (Manual) Eosinophils # (Manual) Nucleated RBC % Basophils # (Manual) APTT Heparin Anti-Xa Level ABG pH POC ABG pO2 68.1 L ABG pO2 ABG HCO3 ABG O2 Saturation ABG Base Excess POC ABG pCO2 ABG Hemoglobin ABG Oxyhemoglobin 91.2 L Oxyhemoglobin Sodium Potassium Chloride Carbon Dioxide BUN Creatinine Glucose POC Glucose 111 H 110 H Lactic Acid Calcium Phosphorus Magnesium AST ALT Lactate Dehydrogenase CK-MB (CK-2) C-Reactive Protein NT-Pro-B Natriuret Pep Total Protein Albumin Urine WBC (Auto) 11/28/19 11/28/19 11/28/19 12:08 13:47 13:47 WBC 11.3 H RBC Hgb Hct MCHC RDW 16.1 H Lymph % (Auto) [place] % (Auto) 9.9 H [place] # 1.1 H Eos # [place] # (Auto) Eos # (Auto) Seg Neutrophils % 71.4 H Seg Neuts % (Manual) Baso # (Auto) Lymphocytes % (Manual) Monocytes % (Manual) Eosinophils % (Manual) Basophils % (Manual) Seg Neutrophils # 8.1 H Seg Neutrophils # Man Lymphocytes # (Manual) Monocytes # (Manual) Eosinophils # (Manual) Nucleated RBC % Basophils # (Manual) APTT Heparin Anti-Xa Level ABG pH POC ABG pO2 ABG pO2 ABG HCO3 ABG O2 Saturation ABG Base Excess POC ABG pCO2 ABG Hemoglobin ABG Oxyhemoglobin Oxyhemoglobin Sodium Potassium Chloride Carbon Dioxide BUN 23 H Creatinine Glucose 123 H POC Glucose 112 H Lactic Acid Calcium Phosphorus Magnesium AST ALT Lactate Dehydrogenase CK-MB (CK-2) C-Reactive Protein NT-Pro-B Natriuret Pep Total Protein Albumin 3.7 L Urine WBC (Auto) 11/28/19 11/29/19 11/29/19 17:26 03:55 17:04 WBC RBC Hgb Hct MCHC RDW Lymph % (Auto) [place] % (Auto) [place] # Eos # [place] # (Auto) Eos # (Auto) Seg Neutrophils % Seg Neuts % (Manual) Baso # (Auto) Lymphocytes % (Manual) Monocytes % (Manual) Eosinophils % (Manual) Basophils % (Manual) Seg Neutrophils # Seg Neutrophils # Man Lymphocytes # (Manual) Monocytes # (Manual) Eosinophils # (Manual) Nucleated RBC % Basophils # (Manual) APTT Heparin Anti-Xa Level ABG pH POC ABG pO2 ABG pO2 65.7 L ABG HCO3 28.3 H ABG O2 Saturation 93.9 L ABG Base Excess 3.6 H POC ABG pCO2 ABG Hemoglobin 13.3 L ABG Oxyhemoglobin Oxyhemoglobin 91.5 L Sodium Potassium Chloride Carbon Dioxide BUN Creatinine Glucose POC Glucose 123 H 119 H Lactic Acid Calcium Phosphorus Magnesium AST ALT Lactate Dehydrogenase CK-MB (CK-2) C-Reactive Protein NT-Pro-B Natriuret Pep Total Protein Albumin Urine WBC (Auto) 11/30/19 11/30/19 11/30/19 04:17 04:17 04:56 WBC 13.4 H RBC Hgb Hct MCHC RDW 15.6 H Lymph % (Auto) [place] % (Auto) [place] # Eos # [place] # (Auto) Eos # (Auto) Seg Neutrophils % Seg Neuts % (Manual) Baso # (Auto) Lymphocytes % (Manual) Monocytes % (Manual) Eosinophils % (Manual) Basophils % (Manual) Seg Neutrophils # Seg Neutrophils # Man Lymphocytes # (Manual) Monocytes # (Manual) Eosinophils # (Manual) Nucleated RBC % Basophils # (Manual) APTT Heparin Anti-Xa Level ABG pH POC ABG pO2 ABG pO2 56.3 L ABG HCO3 29.3 H ABG O2 Saturation 91.5 L ABG Base Excess 4.7 H POC ABG pCO2 ABG Hemoglobin 12.1 L ABG Oxyhemoglobin Oxyhemoglobin 89.2 L Sodium 147 H Potassium Chloride Carbon Dioxide BUN 30 H Creatinine Glucose 124 H POC Glucose Lactic Acid Calcium Phosphorus Magnesium AST ALT Lactate Dehydrogenase CK-MB (CK-2) C-Reactive Protein NT-Pro-B Natriuret Pep Total Protein Albumin 3.8 L Urine WBC (Auto) 11/30/19 11/30/19 11/30/19 05:51 11:54 18:17 WBC RBC Hgb Hct MCHC RDW Lymph % (Auto) [place] % (Auto) [place] # Eos # [place] # (Auto) Eos # (Auto) Seg Neutrophils % Seg Neuts % (Manual) Baso # (Auto) Lymphocytes % (Manual) Monocytes % (Manual) Eosinophils % (Manual) Basophils % (Manual) Seg Neutrophils # Seg Neutrophils # Man Lymphocytes # (Manual) Monocytes # (Manual) Eosinophils # (Manual) Nucleated RBC % Basophils # (Manual) APTT Heparin Anti-Xa Level ABG pH POC ABG pO2 ABG pO2 ABG HCO3 ABG O2 Saturation ABG Base Excess POC ABG pCO2 ABG Hemoglobin ABG Oxyhemoglobin Oxyhemoglobin Sodium Potassium Chloride Carbon Dioxide BUN Creatinine Glucose POC Glucose 127 H 115 H 143 H Lactic Acid Calcium Phosphorus Magnesium AST ALT Lactate Dehydrogenase CK-MB (CK-2) C-Reactive Protein NT-Pro-B Natriuret Pep Total Protein Albumin Urine WBC (Auto) 12/01/19 12/01/19 12/01/19 01:18 05:22 12:16 WBC RBC Hgb Hct MCHC RDW Lymph % (Auto) [place] % (Auto) [place] # Eos # [place] # (Auto) Eos # (Auto) Seg Neutrophils % Seg Neuts % (Manual) Baso # (Auto) Lymphocytes % (Manual) Monocytes % (Manual) Eosinophils % (Manual) Basophils % (Manual) Seg Neutrophils # Seg Neutrophils # Man Lymphocytes # (Manual) Monocytes # (Manual) Eosinophils # (Manual) Nucleated RBC % Basophils # (Manual) APTT Heparin Anti-Xa Level ABG pH POC ABG pO2 ABG pO2 ABG HCO3 ABG O2 Saturation ABG Base Excess POC ABG pCO2 ABG Hemoglobin ABG Oxyhemoglobin Oxyhemoglobin Sodium Potassium 3.5 L Chloride 107.8 H Carbon Dioxide BUN 37 H Creatinine Glucose 157 H POC Glucose 118 H 148 H Lactic Acid Calcium 8.2 L D Phosphorus Magnesium AST 48 H ALT 60 H Lactate Dehydrogenase 194 H CK-MB (CK-2) C-Reactive Protein 8.50 H NT-Pro-B Natriuret Pep Total Protein 5.5 L Albumin 2.8 L Urine WBC (Auto) 12/01/19 12/02/19 12/02/19 18:04 00:05 05:16 WBC 11.4 H RBC Hgb Hct MCHC RDW 15.9 H Lymph % (Auto) [place] % (Auto) 9.9 H [place] # 1.1 H Eos # [place] # (Auto) Eos # (Auto) Seg Neutrophils % 70.3 H Seg Neuts % (Manual) Baso # (Auto) Lymphocytes % (Manual) Monocytes % (Manual) Eosinophils % (Manual) Basophils % (Manual) Seg Neutrophils # 8.0 H Seg Neutrophils # Man Lymphocytes # (Manual) Monocytes # (Manual) Eosinophils # (Manual) Nucleated RBC % Basophils # (Manual) APTT Heparin Anti-Xa Level ABG pH POC ABG pO2 ABG pO2 ABG HCO3 ABG O2 Saturation ABG Base Excess POC ABG pCO2 ABG Hemoglobin ABG Oxyhemoglobin Oxyhemoglobin Sodium Potassium Chloride Carbon Dioxide BUN Creatinine Glucose POC Glucose 143 H 107 H Lactic Acid Calcium Phosphorus Magnesium AST ALT Lactate Dehydrogenase CK-MB (CK-2) C-Reactive Protein NT-Pro-B Natriuret Pep Total Protein Albumin Urine WBC (Auto) 12/02/19 12/02/19 12/02/19 05:16 06:03 11:52 WBC RBC Hgb Hct MCHC RDW Lymph % (Auto) [place] % (Auto) [place] # Eos # [place] # (Auto) Eos # (Auto) Seg Neutrophils % Seg Neuts % (Manual) Baso # (Auto) Lymphocytes % (Manual) Monocytes % (Manual) Eosinophils % (Manual) Basophils % (Manual) Seg Neutrophils # Seg Neutrophils # Man Lymphocytes # (Manual) Monocytes # (Manual) Eosinophils # (Manual) Nucleated RBC % Basophils # (Manual) APTT Heparin Anti-Xa Level ABG pH POC ABG pO2 ABG pO2 ABG HCO3 ABG O2 Saturation ABG Base Excess POC ABG pCO2 ABG Hemoglobin ABG Oxyhemoglobin Oxyhemoglobin Sodium 146 H Potassium Chloride Carbon Dioxide BUN 28 H Creatinine Glucose 123 H POC Glucose 110 H 152 H Lactic Acid Calcium Phosphorus Magnesium AST ALT Lactate Dehydrogenase CK-MB (CK-2) C-Reactive Protein NT-Pro-B Natriuret Pep Total Protein Albumin Urine WBC (Auto) 12/02/19 12/02/19 12/02/19 12:58 17:58 23:36 WBC RBC Hgb Hct MCHC RDW Lymph % (Auto) [place] % (Auto) [place] # Eos # [place] # (Auto) Eos # (Auto) Seg Neutrophils % Seg Neuts % (Manual) Baso # (Auto) Lymphocytes % (Manual) Monocytes % (Manual) Eosinophils % (Manual) Basophils % (Manual) Seg Neutrophils # Seg Neutrophils # Man Lymphocytes # (Manual) Monocytes # (Manual) Eosinophils # (Manual) Nucleated RBC % Basophils # (Manual) APTT Heparin Anti-Xa Level ABG pH POC ABG pO2 78.1 L ABG pO2 ABG HCO3 ABG O2 Saturation ABG Base Excess POC ABG pCO2 ABG Hemoglobin ABG Oxyhemoglobin Oxyhemoglobin Sodium Potassium Chloride Carbon Dioxide BUN Creatinine Glucose POC Glucose 120 H 123 H Lactic Acid Calcium Phosphorus Magnesium AST ALT Lactate Dehydrogenase CK-MB (CK-2) C-Reactive Protein NT-Pro-B Natriuret Pep Total Protein Albumin Urine WBC (Auto) 12/03/19 12/03/19 12/03/19 06:03 06:14 11:46 WBC RBC Hgb Hct MCHC RDW Lymph % (Auto) [place] % (Auto) [place] # Eos # [place] # (Auto) Eos # (Auto) Seg Neutrophils % Seg Neuts % (Manual) Baso # (Auto) Lymphocytes % (Manual) Monocytes % (Manual) Eosinophils % (Manual) Basophils % (Manual) Seg Neutrophils # Seg Neutrophils # Man Lymphocytes # (Manual) Monocytes # (Manual) Eosinophils # (Manual) Nucleated RBC % Basophils # (Manual) APTT Heparin Anti-Xa Level ABG pH POC ABG pO2 ABG pO2 ABG HCO3 ABG O2 Saturation ABG Base Excess POC ABG pCO2 ABG Hemoglobin ABG Oxyhemoglobin Oxyhemoglobin Sodium Potassium Chloride Carbon Dioxide BUN Creatinine Glucose POC Glucose 142 H 130 H Lactic Acid Calcium Phosphorus Magnesium AST ALT Lactate Dehydrogenase CK-MB (CK-2) C-Reactive Protein NT-Pro-B Natriuret Pep Total Protein Albumin Urine WBC (Auto) 8.0 H 12/03/19 12/03/19 12/04/19 15:50 17:39 00:04 WBC RBC Hgb Hct MCHC RDW Lymph % (Auto) [place] % (Auto) [place] # Eos # [place] # (Auto) Eos # (Auto) Seg Neutrophils % Seg Neuts % (Manual) Baso # (Auto) Lymphocytes % (Manual) Monocytes % (Manual) Eosinophils % (Manual) Basophils % (Manual) Seg Neutrophils # Seg Neutrophils # Man Lymphocytes # (Manual) Monocytes # (Manual) Eosinophils # (Manual) Nucleated RBC % Basophils # (Manual) APTT Heparin Anti-Xa Level ABG pH POC ABG pO2 ABG pO2 ABG HCO3 ABG O2 Saturation ABG Base Excess POC ABG pCO2 ABG Hemoglobin ABG Oxyhemoglobin Oxyhemoglobin Sodium Potassium Chloride Carbon Dioxide BUN Creatinine Glucose POC Glucose 146 H 133 H Lactic Acid Calcium Phosphorus 2.40 L Magnesium AST ALT Lactate Dehydrogenase CK-MB (CK-2) C-Reactive Protein NT-Pro-B Natriuret Pep Total Protein Albumin Urine WBC (Auto) 12/04/19 12/04/19 12/04/19 03:58 03:58 05:22 WBC 12.5 H RBC Hgb 11.2 L Hct 35.2 L MCHC RDW 16.0 H Lymph % (Auto) [place] % (Auto) 9.6 H [place] # 1.2 H Eos # 0.5 H [place] # (Auto) Eos # (Auto) Seg Neutrophils % Seg Neuts % (Manual) Baso # (Auto) Lymphocytes % (Manual) Monocytes % (Manual) Eosinophils % (Manual) Basophils % (Manual) Seg Neutrophils # 8.6 H Seg Neutrophils # Man Lymphocytes # (Manual) Monocytes # (Manual) Eosinophils # (Manual) Nucleated RBC % Basophils # (Manual) APTT Heparin Anti-Xa Level ABG pH POC ABG pO2 ABG pO2 ABG HCO3 ABG O2 Saturation ABG Base Excess POC ABG pCO2 ABG Hemoglobin ABG Oxyhemoglobin Oxyhemoglobin Sodium 146 H Potassium Chloride 108.6 H Carbon Dioxide BUN 30 H Creatinine 0.7 L Glucose 121 H POC Glucose 132 H Lactic Acid Calcium Phosphorus Magnesium AST ALT Lactate Dehydrogenase CK-MB (CK-2) C-Reactive Protein NT-Pro-B Natriuret Pep Total Protein Albumin Urine WBC (Auto) 12/04/19 12/04/19 12/05/19 13:26 18:43 00:19 WBC RBC Hgb Hct MCHC RDW Lymph % (Auto) [place] % (Auto) [place] # Eos # [place] # (Auto) Eos # (Auto) Seg Neutrophils % Seg Neuts % (Manual) Baso # (Auto) Lymphocytes % (Manual) Monocytes % (Manual) Eosinophils % (Manual) Basophils % (Manual) Seg Neutrophils # Seg Neutrophils # Man Lymphocytes # (Manual) Monocytes # (Manual) Eosinophils # (Manual) Nucleated RBC % Basophils # (Manual) APTT Heparin Anti-Xa Level ABG pH POC ABG pO2 ABG pO2 ABG HCO3 ABG O2 Saturation ABG Base Excess POC ABG pCO2 ABG Hemoglobin ABG Oxyhemoglobin Oxyhemoglobin Sodium Potassium Chloride Carbon Dioxide BUN Creatinine Glucose POC Glucose 185 H 156 H 150 H Lactic Acid Calcium Phosphorus Magnesium AST ALT Lactate Dehydrogenase CK-MB (CK-2) C-Reactive Protein NT-Pro-B Natriuret Pep Total Protein Albumin Urine WBC (Auto) 12/05/19 12/05/19 12/05/19 03:37 03:37 05:14 WBC 16.3 H RBC Hgb 11.4 L Hct MCHC RDW 15.6 H Lymph % (Auto) 9.9 L [place] % (Auto) 9.7 H [place] # 1.6 H Eos # [place] # (Auto) Eos # (Auto) Seg Neutrophils % 78.0 H Seg Neuts % (Manual) Baso # (Auto) Lymphocytes % (Manual) Monocytes % (Manual) Eosinophils % (Manual) Basophils % (Manual) Seg Neutrophils # 12.7 H Seg Neutrophils # Man Lymphocytes # (Manual) Monocytes # (Manual) Eosinophils # (Manual) Nucleated RBC % Basophils # (Manual) APTT Heparin Anti-Xa Level ABG pH POC ABG pO2 ABG pO2 ABG HCO3 ABG O2 Saturation ABG Base Excess POC ABG pCO2 ABG Hemoglobin ABG Oxyhemoglobin Oxyhemoglobin Sodium 146 H Potassium Chloride 107.2 H Carbon Dioxide BUN 27 H Creatinine 0.7 L Glucose 171 H POC Glucose 168 H Lactic Acid Calcium Phosphorus Magnesium AST ALT Lactate Dehydrogenase CK-MB (CK-2) C-Reactive Protein NT-Pro-B Natriuret Pep Total Protein Albumin Urine WBC (Auto) 12/05/19 12/05/19 12/05/19 12:31 18:10 23:58 WBC RBC Hgb Hct MCHC RDW Lymph % (Auto) [place] % (Auto) [place] # Eos # [place] # (Auto) Eos # (Auto) Seg Neutrophils % Seg Neuts % (Manual) Baso # (Auto) Lymphocytes % (Manual) Monocytes % (Manual) Eosinophils % (Manual) Basophils % (Manual) Seg Neutrophils # Seg Neutrophils # Man Lymphocytes # (Manual) Monocytes # (Manual) Eosinophils # (Manual) Nucleated RBC % Basophils # (Manual) APTT Heparin Anti-Xa Level ABG pH POC ABG pO2 ABG pO2 ABG HCO3 ABG O2 Saturation ABG Base Excess POC ABG pCO2 ABG Hemoglobin ABG Oxyhemoglobin Oxyhemoglobin Sodium Potassium Chloride Carbon Dioxide BUN Creatinine Glucose POC Glucose 159 H 198 H 115 H Lactic Acid Calcium Phosphorus Magnesium AST ALT Lactate Dehydrogenase CK-MB (CK-2) C-Reactive Protein NT-Pro-B Natriuret Pep Total Protein Albumin Urine WBC (Auto) 12/06/19 12/06/19 12/06/19 05:24 05:24 05:25 WBC 14.9 H RBC Hgb 10.8 L Hct 34.0 L MCHC RDW 15.6 H Lymph % (Auto) 10.7 L [place] % (Auto) 8.3 H [place] # 1.2 H Eos # [place] # (Auto) Eos # (Auto) Seg Neutrophils % 78.7 H Seg Neuts % (Manual) Baso # (Auto) Lymphocytes % (Manual) Monocytes % (Manual) Eosinophils % (Manual) Basophils % (Manual) Seg Neutrophils # 11.7 H Seg Neutrophils # Man Lymphocytes # (Manual) Monocytes # (Manual) Eosinophils # (Manual) Nucleated RBC % Basophils # (Manual) APTT Heparin Anti-Xa Level ABG pH POC ABG pO2 ABG pO2 ABG HCO3 ABG O2 Saturation ABG Base Excess POC ABG pCO2 ABG Hemoglobin ABG Oxyhemoglobin Oxyhemoglobin Sodium 148 H Potassium 5.1 H Chloride 107.6 H Carbon Dioxide BUN 27 H Creatinine 0.7 L Glucose 155 H POC Glucose 157 H Lactic Acid Calcium Phosphorus Magnesium AST ALT Lactate Dehydrogenase CK-MB (CK-2) C-Reactive Protein NT-Pro-B Natriuret Pep Total Protein Albumin Urine WBC (Auto) 12/07/19 12/07/19 12/07/19 00:13 05:34 11:33 WBC RBC Hgb Hct MCHC RDW Lymph % (Auto) [place] % (Auto) [place] # Eos # [place] # (Auto) Eos # (Auto) Seg Neutrophils % Seg Neuts % (Manual) Baso # (Auto) Lymphocytes % (Manual) Monocytes % (Manual) Eosinophils % (Manual) Basophils % (Manual) Seg Neutrophils # Seg Neutrophils # Man Lymphocytes # (Manual) Monocytes # (Manual) Eosinophils # (Manual) Nucleated RBC % Basophils # (Manual) APTT Heparin Anti-Xa Level ABG pH POC ABG pO2 ABG pO2 ABG HCO3 ABG O2 Saturation ABG Base Excess POC ABG pCO2 ABG Hemoglobin ABG Oxyhemoglobin Oxyhemoglobin Sodium Potassium Chloride Carbon Dioxide BUN Creatinine Glucose POC Glucose 142 H 111 H 169 H Lactic Acid Calcium Phosphorus Magnesium AST ALT Lactate Dehydrogenase CK-MB (CK-2) C-Reactive Protein NT-Pro-B Natriuret Pep Total Protein Albumin Urine WBC (Auto) 12/07/19 12/07/19 12/07/19 12:41 13:25 18:19 WBC 12.4 H RBC 3.53 L Hgb 10.2 L Hct 32.1 L MCHC RDW 15.3 H Lymph % (Auto) 10.6 L [place] % (Auto) 7.8 H [place] # 1.0 H Eos # [place] # (Auto) Eos # (Auto) Seg Neutrophils % 77.6 H Seg Neuts % (Manual) Baso # (Auto) Lymphocytes % (Manual) Monocytes % (Manual) Eosinophils % (Manual) Basophils % (Manual) Seg Neutrophils # 9.6 H Seg Neutrophils # Man Lymphocytes # (Manual) Monocytes # (Manual) Eosinophils # (Manual) Nucleated RBC % Basophils # (Manual) APTT Heparin Anti-Xa Level ABG pH POC ABG pO2 ABG pO2 ABG HCO3 ABG O2 Saturation ABG Base Excess POC ABG pCO2 ABG Hemoglobin ABG Oxyhemoglobin Oxyhemoglobin Sodium 149 H Potassium Chloride 108.4 H Carbon Dioxide BUN 26 H Creatinine 0.6 L Glucose 149 H POC Glucose 164 H Lactic Acid Calcium Phosphorus Magnesium 2.60 H AST 121 H ALT 145 H Lactate Dehydrogenase CK-MB (CK-2) C-Reactive Protein NT-Pro-B Natriuret Pep Total Protein Albumin 2.6 L Urine WBC (Auto) 12/07/19 12/08/19 12/08/19 22:25 00:02 03:55 WBC 13.3 H RBC 3.40 L Hgb 9.7 L Hct 30.8 L MCHC 31 L RDW 15.5 H Lymph % (Auto) [place] % (Auto) 8.1 H [place] # 1.1 H Eos # [place] # (Auto) Eos # (Auto) Seg Neutrophils % 73.0 H Seg Neuts % (Manual) Baso # (Auto) Lymphocytes % (Manual) Monocytes % (Manual) Eosinophils % (Manual) Basophils % (Manual) Seg Neutrophils # 9.7 H Seg Neutrophils # Man Lymphocytes # (Manual) Monocytes # (Manual) Eosinophils # (Manual) Nucleated RBC % Basophils # (Manual) APTT Heparin Anti-Xa Level 0.12 L ABG pH POC ABG pO2 ABG pO2 ABG HCO3 ABG O2 Saturation ABG Base Excess POC ABG pCO2 ABG Hemoglobin ABG Oxyhemoglobin Oxyhemoglobin Sodium Potassium Chloride Carbon Dioxide BUN Creatinine Glucose POC Glucose 151 H Lactic Acid Calcium Phosphorus Magnesium AST ALT Lactate Dehydrogenase CK-MB (CK-2) C-Reactive Protein NT-Pro-B Natriuret Pep Total Protein Albumin Urine WBC (Auto) 12/08/19 12/08/19 12/08/19 03:55 05:21 06:01 WBC RBC Hgb Hct MCHC RDW Lymph % (Auto) [place] % (Auto) [place] # Eos # [place] # (Auto) Eos # (Auto) Seg Neutrophils % Seg Neuts % (Manual) Baso # (Auto) Lymphocytes % (Manual) Monocytes % (Manual) Eosinophils % (Manual) Basophils % (Manual) Seg Neutrophils # Seg Neutrophils # Man Lymphocytes # (Manual) Monocytes # (Manual) Eosinophils # (Manual) Nucleated RBC % Basophils # (Manual) APTT Heparin Anti-Xa Level 0.20 L ABG pH POC ABG pO2 ABG pO2 ABG HCO3 ABG O2 Saturation ABG Base Excess POC ABG pCO2 ABG Hemoglobin ABG Oxyhemoglobin Oxyhemoglobin Sodium 149 H Potassium Chloride 108.0 H Carbon Dioxide BUN 28 H Creatinine 0.6 L Glucose 144 H POC Glucose 143 H Lactic Acid Calcium Phosphorus Magnesium AST 98 H ALT 145 H Lactate Dehydrogenase CK-MB (CK-2) C-Reactive Protein NT-Pro-B Natriuret Pep Total Protein 6.0 L Albumin 2.4 L Urine WBC (Auto) 12/08/19 12/08/19 12/08/19 12:08 18:11 23:53 WBC RBC Hgb Hct MCHC RDW Lymph % (Auto) [place] % (Auto) [place] # Eos # [place] # (Auto) Eos # (Auto) Seg Neutrophils % Seg Neuts % (Manual) Baso # (Auto) Lymphocytes % (Manual) Monocytes % (Manual) Eosinophils % (Manual) Basophils % (Manual) Seg Neutrophils # Seg Neutrophils # Man Lymphocytes # (Manual) Monocytes # (Manual) Eosinophils # (Manual) Nucleated RBC % Basophils # (Manual) APTT Heparin Anti-Xa Level ABG pH POC ABG pO2 ABG pO2 ABG HCO3 ABG O2 Saturation ABG Base Excess POC ABG pCO2 ABG Hemoglobin ABG Oxyhemoglobin Oxyhemoglobin Sodium Potassium Chloride Carbon Dioxide BUN Creatinine Glucose POC Glucose 172 H 122 H 162 H Lactic Acid Calcium Phosphorus Magnesium AST ALT Lactate Dehydrogenase CK-MB (CK-2) C-Reactive Protein NT-Pro-B Natriuret Pep Total Protein Albumin Urine WBC (Auto) 12/09/19 12/09/19 12/09/19 04:03 04:03 05:53 WBC RBC Hgb 9.1 L Hct 28.9 L MCHC RDW Lymph % (Auto) [place] % (Auto) [place] # Eos # [place] # (Auto) Eos # (Auto) Seg Neutrophils % Seg Neuts % (Manual) Baso # (Auto) Lymphocytes % (Manual) Monocytes % (Manual) Eosinophils % (Manual) Basophils % (Manual) Seg Neutrophils # Seg Neutrophils # Man Lymphocytes # (Manual) Monocytes # (Manual) Eosinophils # (Manual) Nucleated RBC % Basophils # (Manual) APTT Heparin Anti-Xa Level 0.15 L ABG pH POC ABG pO2 ABG pO2 ABG HCO3 ABG O2 Saturation ABG Base Excess POC ABG pCO2 ABG Hemoglobin ABG Oxyhemoglobin Oxyhemoglobin Sodium Potassium Chloride Carbon Dioxide BUN Creatinine Glucose POC Glucose 124 H Lactic Acid Calcium Phosphorus Magnesium AST ALT Lactate Dehydrogenase CK-MB (CK-2) C-Reactive Protein NT-Pro-B Natriuret Pep Total Protein Albumin Urine WBC (Auto) 12/09/19 12/09/19 12/10/19 09:43 12:41 00:13 WBC RBC Hgb Hct MCHC RDW Lymph % (Auto) [place] % (Auto) [place] # Eos # [place] # (Auto) Eos # (Auto) Seg Neutrophils % Seg Neuts % (Manual) Baso # (Auto) Lymphocytes % (Manual) Monocytes % (Manual) Eosinophils % (Manual) Basophils % (Manual) Seg Neutrophils # Seg Neutrophils # Man Lymphocytes # (Manual) Monocytes # (Manual) Eosinophils # (Manual) Nucleated RBC % Basophils # (Manual) APTT Heparin Anti-Xa Level ABG pH POC ABG pO2 ABG pO2 ABG HCO3 ABG O2 Saturation ABG Base Excess POC ABG pCO2 ABG Hemoglobin ABG Oxyhemoglobin Oxyhemoglobin Sodium Potassium Chloride Carbon Dioxide BUN 25 H Creatinine 0.6 L Glucose 131 H POC Glucose 109 H 120 H Lactic Acid Calcium Phosphorus Magnesium AST ALT Lactate Dehydrogenase CK-MB (CK-2) C-Reactive Protein NT-Pro-B Natriuret Pep Total Protein Albumin Urine WBC (Auto) 12/10/19 12/10/19 12/10/19 04:14 04:14 12:00 WBC 13.3 H RBC 3.34 L Hgb 9.6 L Hct 30.4 L MCHC RDW 15.4 H Lymph % (Auto) [place] % (Auto) [place] # Eos # [place] # (Auto) Eos # (Auto) Seg Neutrophils % Seg Neuts % (Manual) 75.0 H Baso # (Auto) Lymphocytes % (Manual) 13.0 L Monocytes % (Manual) 8.0 H Eosinophils % (Manual) Basophils % (Manual) 2.0 H Seg Neutrophils # Seg Neutrophils # Man 10.0 H Lymphocytes # (Manual) Monocytes # (Manual) 1.1 H Eosinophils # (Manual) Nucleated RBC % Basophils # (Manual) 0.3 H APTT Heparin Anti-Xa Level ABG pH POC ABG pO2 ABG pO2 ABG HCO3 ABG O2 Saturation ABG Base Excess POC ABG pCO2 ABG Hemoglobin ABG Oxyhemoglobin Oxyhemoglobin Sodium 147 H Potassium Chloride 108.3 H Carbon Dioxide BUN 21 H Creatinine 0.6 L Glucose 104 H POC Glucose 133 H Lactic Acid Calcium Phosphorus Magnesium AST ALT Lactate Dehydrogenase CK-MB (CK-2) C-Reactive Protein NT-Pro-B Natriuret Pep Total Protein Albumin Urine WBC (Auto) 12/10/19 12/10/19 12/11/19 18:44 21:20 00:08 WBC 14.9 H RBC 3.36 L Hgb 9.6 L Hct 30.5 L MCHC RDW 15.4 H Lymph % (Auto) [place] % (Auto) [place] # Eos # [place] # (Auto) Eos # (Auto) Seg Neutrophils % Seg Neuts % (Manual) Baso # (Auto) Lymphocytes % (Manual) Monocytes % (Manual) Eosinophils % (Manual) Basophils % (Manual) Seg Neutrophils # Seg Neutrophils # Man Lymphocytes # (Manual) Monocytes # (Manual) Eosinophils # (Manual) Nucleated RBC % Basophils # (Manual) APTT Heparin Anti-Xa Level ABG pH POC ABG pO2 ABG pO2 ABG HCO3 ABG O2 Saturation ABG Base Excess POC ABG pCO2 ABG Hemoglobin ABG Oxyhemoglobin Oxyhemoglobin Sodium Potassium Chloride Carbon Dioxide BUN Creatinine Glucose POC Glucose 119 H 134 H Lactic Acid Calcium Phosphorus Magnesium AST ALT Lactate Dehydrogenase CK-MB (CK-2) C-Reactive Protein NT-Pro-B Natriuret Pep Total Protein Albumin Urine WBC (Auto) 12/11/19 12/11/19 12/11/19 03:54 07:28 08:36 WBC 11.9 H RBC 3.25 L Hgb 9.6 L Hct 29.2 L MCHC RDW 15.7 H Lymph % (Auto) [place] % (Auto) [place] # Eos # [place] # (Auto) Eos # (Auto) Seg Neutrophils % Seg Neuts % (Manual) Baso # (Auto) Lymphocytes % (Manual) Monocytes % (Manual) Eosinophils % (Manual) Basophils % (Manual) Seg Neutrophils # Seg Neutrophils # Man Lymphocytes # (Manual) Monocytes # (Manual) Eosinophils # (Manual) Nucleated RBC % Basophils # (Manual) APTT Heparin Anti-Xa Level 0.10 L 0.16 L ABG pH POC ABG pO2 ABG pO2 ABG HCO3 ABG O2 Saturation ABG Base Excess POC ABG pCO2 ABG Hemoglobin ABG Oxyhemoglobin Oxyhemoglobin Sodium Potassium Chloride Carbon Dioxide BUN Creatinine Glucose POC Glucose Lactic Acid Calcium Phosphorus Magnesium AST ALT Lactate Dehydrogenase CK-MB (CK-2) C-Reactive Protein NT-Pro-B Natriuret Pep Total Protein Albumin Urine WBC (Auto) 12/11/19 12/11/19 12/11/19 08:36 11:45 17:15 WBC RBC Hgb Hct MCHC RDW Lymph % (Auto) [place] % (Auto) [place] # Eos # [place] # (Auto) Eos # (Auto) Seg Neutrophils % Seg Neuts % (Manual) Baso # (Auto) Lymphocytes % (Manual) Monocytes % (Manual) Eosinophils % (Manual) Basophils % (Manual) Seg Neutrophils # Seg Neutrophils # Man Lymphocytes # (Manual) Monocytes # (Manual) Eosinophils # (Manual) Nucleated RBC % Basophils # (Manual) APTT Heparin Anti-Xa Level ABG pH POC ABG pO2 ABG pO2 ABG HCO3 ABG O2 Saturation ABG Base Excess POC ABG pCO2 ABG Hemoglobin ABG Oxyhemoglobin Oxyhemoglobin Sodium Potassium Chloride Carbon Dioxide BUN Creatinine 0.5 L Glucose 128 H POC Glucose 136 H 109 H Lactic Acid Calcium Phosphorus Magnesium AST ALT Lactate Dehydrogenase CK-MB (CK-2) C-Reactive Protein NT-Pro-B Natriuret Pep Total Protein Albumin Urine WBC (Auto) 12/12/19 12/12/19 12/12/19 00:03 05:53 05:53 WBC RBC Hgb 8.8 L Hct 27.6 L MCHC RDW Lymph % (Auto) [place] % (Auto) [place] # Eos # [place] # (Auto) Eos # (Auto) Seg Neutrophils % Seg Neuts % (Manual) Baso # (Auto) Lymphocytes % (Manual) Monocytes % (Manual) Eosinophils % (Manual) Basophils % (Manual) Seg Neutrophils # Seg Neutrophils # Man Lymphocytes # (Manual) Monocytes # (Manual) Eosinophils # (Manual) Nucleated RBC % Basophils # (Manual) APTT Heparin Anti-Xa Level 0.22 L ABG pH POC ABG pO2 ABG pO2 ABG HCO3 ABG O2 Saturation ABG Base Excess POC ABG pCO2 ABG Hemoglobin ABG Oxyhemoglobin Oxyhemoglobin Sodium Potassium Chloride Carbon Dioxide BUN Creatinine Glucose POC Glucose 116 H Lactic Acid Calcium Phosphorus Magnesium AST ALT Lactate Dehydrogenase CK-MB (CK-2) C-Reactive Protein NT-Pro-B Natriuret Pep Total Protein Albumin Urine WBC (Auto) 12/12/19 12/12/19 12/12/19 09:38 12:18 17:44 WBC RBC Hgb Hct MCHC RDW Lymph % (Auto) [place] % (Auto) [place] # Eos # [place] # (Auto) Eos # (Auto) Seg Neutrophils % Seg Neuts % (Manual) Baso # (Auto) Lymphocytes % (Manual) Monocytes % (Manual) Eosinophils % (Manual) Basophils % (Manual) Seg Neutrophils # Seg Neutrophils # Man Lymphocytes # (Manual) Monocytes # (Manual) Eosinophils # (Manual) Nucleated RBC % Basophils # (Manual) APTT Heparin Anti-Xa Level ABG pH POC ABG pO2 ABG pO2 ABG HCO3 ABG O2 Saturation ABG Base Excess POC ABG pCO2 ABG Hemoglobin ABG Oxyhemoglobin Oxyhemoglobin Sodium Potassium Chloride Carbon Dioxide BUN Creatinine Glucose POC Glucose 115 H 146 H 146 H Lactic Acid Calcium Phosphorus Magnesium AST ALT Lactate Dehydrogenase CK-MB (CK-2) C-Reactive Protein NT-Pro-B Natriuret Pep Total Protein Albumin Urine WBC (Auto) 12/12/19 12/13/19 12/13/19 23:33 05:32 05:32 WBC 13.1 H RBC 3.27 L Hgb 9.5 L Hct 29.3 L MCHC RDW 15.6 H Lymph % (Auto) [place] % (Auto) [place] # Eos # [place] # (Auto) Eos # (Auto) Seg Neutrophils % Seg Neuts % (Manual) 74.0 H Baso # (Auto) Lymphocytes % (Manual) 8.0 L Monocytes % (Manual) 9.0 H Eosinophils % (Manual) 5.0 H Basophils % (Manual) Seg Neutrophils # Seg Neutrophils # Man 9.7 H Lymphocytes # (Manual) 1.0 L Monocytes # (Manual) 1.2 H Eosinophils # (Manual) 0.7 H Nucleated RBC % Basophils # (Manual) APTT Heparin Anti-Xa Level 0.20 L ABG pH POC ABG pO2 ABG pO2 ABG HCO3 ABG O2 Saturation ABG Base Excess POC ABG pCO2 ABG Hemoglobin ABG Oxyhemoglobin Oxyhemoglobin Sodium Potassium Chloride Carbon Dioxide BUN Creatinine Glucose POC Glucose 126 H Lactic Acid Calcium Phosphorus Magnesium AST ALT Lactate Dehydrogenase CK-MB (CK-2) C-Reactive Protein NT-Pro-B Natriuret Pep Total Protein Albumin Urine WBC (Auto) 12/13/19 12/13/19 12/13/19 05:32 05:46 11:57 WBC RBC Hgb Hct MCHC RDW Lymph % (Auto) [place] % (Auto) [place] # Eos # [place] # (Auto) Eos # (Auto) Seg Neutrophils % Seg Neuts % (Manual) Baso # (Auto) Lymphocytes % (Manual) Monocytes % (Manual) Eosinophils % (Manual) Basophils % (Manual) Seg Neutrophils # Seg Neutrophils # Man Lymphocytes # (Manual) Monocytes # (Manual) Eosinophils # (Manual) Nucleated RBC % Basophils # (Manual) APTT Heparin Anti-Xa Level ABG pH POC ABG pO2 ABG pO2 ABG HCO3 ABG O2 Saturation ABG Base Excess POC ABG pCO2 ABG Hemoglobin ABG Oxyhemoglobin Oxyhemoglobin Sodium Potassium Chloride Carbon Dioxide 31 H BUN Creatinine 0.6 L Glucose 114 H POC Glucose 118 H 133 H Lactic Acid Calcium Phosphorus Magnesium AST ALT Lactate Dehydrogenase CK-MB (CK-2) C-Reactive Protein NT-Pro-B Natriuret Pep Total Protein Albumin Urine WBC (Auto) 12/13/19 12/13/19 12/14/19 17:44 23:46 05:32 WBC RBC Hgb Hct MCHC RDW Lymph % (Auto) [place] % (Auto) [place] # Eos # [place] # (Auto) Eos # (Auto) Seg Neutrophils % Seg Neuts % (Manual) Baso # (Auto) Lymphocytes % (Manual) Monocytes % (Manual) Eosinophils % (Manual) Basophils % (Manual) Seg Neutrophils # Seg Neutrophils # Man Lymphocytes # (Manual) Monocytes # (Manual) Eosinophils # (Manual) Nucleated RBC % Basophils # (Manual) APTT Heparin Anti-Xa Level ABG pH POC ABG pO2 ABG pO2 ABG HCO3 ABG O2 Saturation ABG Base Excess POC ABG pCO2 ABG Hemoglobin ABG Oxyhemoglobin Oxyhemoglobin Sodium Potassium Chloride Carbon Dioxide BUN Creatinine Glucose POC Glucose 161 H 126 H 139 H Lactic Acid Calcium Phosphorus Magnesium AST ALT Lactate Dehydrogenase CK-MB (CK-2) C-Reactive Protein NT-Pro-B Natriuret Pep Total Protein Albumin Urine WBC (Auto) 12/14/19 12/14/19 12/14/19 06:03 06:03 09:37 WBC RBC Hgb 9.6 L Hct 30.4 L MCHC RDW Lymph % (Auto) [place] % (Auto) [place] # Eos # [place] # (Auto) Eos # (Auto) Seg Neutrophils % Seg Neuts % (Manual) Baso # (Auto) Lymphocytes % (Manual) Monocytes % (Manual) Eosinophils % (Manual) Basophils % (Manual) Seg Neutrophils # Seg Neutrophils # Man Lymphocytes # (Manual) Monocytes # (Manual) Eosinophils # (Manual) Nucleated RBC % Basophils # (Manual) APTT Heparin Anti-Xa Level 0.24 L ABG pH POC ABG pO2 ABG pO2 ABG HCO3 ABG O2 Saturation ABG Base Excess POC ABG pCO2 ABG Hemoglobin ABG Oxyhemoglobin Oxyhemoglobin Sodium Potassium Chloride Carbon Dioxide BUN Creatinine 0.6 L Glucose 162 H POC Glucose Lactic Acid Calcium Phosphorus Magnesium AST 71 H ALT 118 H Lactate Dehydrogenase CK-MB (CK-2) C-Reactive Protein NT-Pro-B Natriuret Pep Total Protein 6.2 L Albumin 2.3 L Urine WBC (Auto) 12/14/19 12/14/19 12/15/19 12:06 18:18 00:19 WBC RBC Hgb Hct MCHC RDW Lymph % (Auto) [place] % (Auto) [place] # Eos # [place] # (Auto) Eos # (Auto) Seg Neutrophils % Seg Neuts % (Manual) Baso # (Auto) Lymphocytes % (Manual) Monocytes % (Manual) Eosinophils % (Manual) Basophils % (Manual) Seg Neutrophils # Seg Neutrophils # Man Lymphocytes # (Manual) Monocytes # (Manual) Eosinophils # (Manual) Nucleated RBC % Basophils # (Manual) APTT Heparin Anti-Xa Level ABG pH POC ABG pO2 ABG pO2 ABG HCO3 ABG O2 Saturation ABG Base Excess POC ABG pCO2 ABG Hemoglobin ABG Oxyhemoglobin Oxyhemoglobin Sodium Potassium Chloride Carbon Dioxide BUN Creatinine Glucose POC Glucose 147 H 166 H 123 H Lactic Acid Calcium Phosphorus Magnesium AST ALT Lactate Dehydrogenase CK-MB (CK-2) C-Reactive Protein NT-Pro-B Natriuret Pep Total Protein Albumin Urine WBC (Auto) 12/15/19 12/15/19 12/15/19 05:28 05:29 05:29 WBC 14.9 H RBC 3.19 L Hgb 9.1 L Hct 28.7 L MCHC RDW 16.0 H Lymph % (Auto) [place] % (Auto) [place] # Eos # [place] # (Auto) Eos # (Auto) Seg Neutrophils % Seg Neuts % (Manual) Baso # (Auto) Lymphocytes % (Manual) Monocytes % (Manual) Eosinophils % (Manual) Basophils % (Manual) Seg Neutrophils # Seg Neutrophils # Man Lymphocytes # (Manual) Monocytes # (Manual) Eosinophils # (Manual) Nucleated RBC % Basophils # (Manual) APTT Heparin Anti-Xa Level 0.19 L ABG pH POC ABG pO2 ABG pO2 ABG HCO3 ABG O2 Saturation ABG Base Excess POC ABG pCO2 ABG Hemoglobin ABG Oxyhemoglobin Oxyhemoglobin Sodium Potassium Chloride Carbon Dioxide BUN Creatinine 0.6 L Glucose 110 H POC Glucose Lactic Acid Calcium Phosphorus Magnesium AST ALT Lactate Dehydrogenase CK-MB (CK-2) C-Reactive Protein NT-Pro-B Natriuret Pep Total Protein Albumin Urine WBC (Auto) 12/15/19 12/15/19 12/15/19 05:53 11:50 17:26 WBC RBC Hgb Hct MCHC RDW Lymph % (Auto) [place] % (Auto) [place] # Eos # [place] # (Auto) Eos # (Auto) Seg Neutrophils % Seg Neuts % (Manual) Baso # (Auto) Lymphocytes % (Manual) Monocytes % (Manual) Eosinophils % (Manual) Basophils % (Manual) Seg Neutrophils # Seg Neutrophils # Man Lymphocytes # (Manual) Monocytes # (Manual) Eosinophils # (Manual) Nucleated RBC % Basophils # (Manual) APTT Heparin Anti-Xa Level ABG pH POC ABG pO2 ABG pO2 ABG HCO3 ABG O2 Saturation ABG Base Excess POC ABG pCO2 ABG Hemoglobin ABG Oxyhemoglobin Oxyhemoglobin Sodium Potassium Chloride Carbon Dioxide BUN Creatinine Glucose POC Glucose 119 H 132 H 128 H Lactic Acid Calcium Phosphorus Magnesium AST ALT Lactate Dehydrogenase CK-MB (CK-2) C-Reactive Protein NT-Pro-B Natriuret Pep Total Protein Albumin Urine WBC (Auto) 12/15/19 12/16/19 12/16/19 23:11 05:30 05:46 WBC RBC Hgb 8.8 L Hct 27.9 L MCHC RDW Lymph % (Auto) [place] % (Auto) [place] # Eos # [place] # (Auto) Eos # (Auto) Seg Neutrophils % Seg Neuts % (Manual) Baso # (Auto) Lymphocytes % (Manual) Monocytes % (Manual) Eosinophils % (Manual) Basophils % (Manual) Seg Neutrophils # Seg Neutrophils # Man Lymphocytes # (Manual) Monocytes # (Manual) Eosinophils # (Manual) Nucleated RBC % Basophils # (Manual) APTT Heparin Anti-Xa Level ABG pH POC ABG pO2 ABG pO2 ABG HCO3 ABG O2 Saturation ABG Base Excess POC ABG pCO2 ABG Hemoglobin ABG Oxyhemoglobin Oxyhemoglobin Sodium Potassium Chloride Carbon Dioxide BUN Creatinine Glucose POC Glucose 150 H 134 H Lactic Acid Calcium Phosphorus Magnesium AST ALT Lactate Dehydrogenase CK-MB (CK-2) C-Reactive Protein NT-Pro-B Natriuret Pep Total Protein Albumin Urine WBC (Auto) 12/16/19 12/16/19 12/16/19 05:46 05:46 11:44 WBC RBC Hgb Hct MCHC RDW Lymph % (Auto) [place] % (Auto) [place] # Eos # [place] # (Auto) Eos # (Auto) Seg Neutrophils % Seg Neuts % (Manual) Baso # (Auto) Lymphocytes % (Manual) Monocytes % (Manual) Eosinophils % (Manual) Basophils % (Manual) Seg Neutrophils # Seg Neutrophils # Man Lymphocytes # (Manual) Monocytes # (Manual) Eosinophils # (Manual) Nucleated RBC % Basophils # (Manual) APTT Heparin Anti-Xa Level 0.20 L ABG pH POC ABG pO2 ABG pO2 ABG HCO3 ABG O2 Saturation ABG Base Excess POC ABG pCO2 ABG Hemoglobin ABG Oxyhemoglobin Oxyhemoglobin Sodium Potassium Chloride Carbon Dioxide 31 H BUN Creatinine 0.5 L Glucose 147 H POC Glucose 164 H Lactic Acid Calcium Phosphorus Magnesium AST ALT Lactate Dehydrogenase CK-MB (CK-2) C-Reactive Protein NT-Pro-B Natriuret Pep Total Protein Albumin Urine WBC (Auto) 12/16/19 12/16/19 12/17/19 17:17 23:49 05:30 WBC 13.9 H RBC 3.27 L Hgb 9.4 L Hct 29.2 L MCHC RDW 16.0 H Lymph % (Auto) [place] % (Auto) 8.8 H [place] # Eos # [place] # (Auto) 1.2 H Eos # (Auto) 0.5 H Seg Neutrophils % 70.5 H Seg Neuts % (Manual) Baso # (Auto) 0.2 H Lymphocytes % (Manual) Monocytes % (Manual) Eosinophils % (Manual) Basophils % (Manual) Seg Neutrophils # 9.8 H Seg Neutrophils # Man Lymphocytes # (Manual) Monocytes # (Manual) Eosinophils # (Manual) Nucleated RBC % Basophils # (Manual) APTT Heparin Anti-Xa Level ABG pH POC ABG pO2 ABG pO2 ABG HCO3 ABG O2 Saturation ABG Base Excess POC ABG pCO2 ABG Hemoglobin ABG Oxyhemoglobin Oxyhemoglobin Sodium Potassium Chloride Carbon Dioxide BUN Creatinine Glucose POC Glucose 162 H 144 H Lactic Acid Calcium Phosphorus Magnesium AST ALT Lactate Dehydrogenase CK-MB (CK-2) C-Reactive Protein NT-Pro-B Natriuret Pep Total Protein Albumin Urine WBC (Auto) 12/17/19 12/17/19 12/17/19 05:30 06:06 11:50 WBC RBC Hgb Hct MCHC RDW Lymph % (Auto) [place] % (Auto) [place] # Eos # [place] # (Auto) Eos # (Auto) Seg Neutrophils % Seg Neuts % (Manual) Baso # (Auto) Lymphocytes % (Manual) Monocytes % (Manual) Eosinophils % (Manual) Basophils % (Manual) Seg Neutrophils # Seg Neutrophils # Man Lymphocytes # (Manual) Monocytes # (Manual) Eosinophils # (Manual) Nucleated RBC % Basophils # (Manual) APTT Heparin Anti-Xa Level ABG pH POC ABG pO2 ABG pO2 ABG HCO3 ABG O2 Saturation ABG Base Excess POC ABG pCO2 ABG Hemoglobin ABG Oxyhemoglobin Oxyhemoglobin Sodium Potassium Chloride 97.4 L Carbon Dioxide 32 H BUN Creatinine 0.5 L Glucose 135 H POC Glucose 151 H 140 H Lactic Acid Calcium Phosphorus Magnesium AST ALT Lactate Dehydrogenase CK-MB (CK-2) C-Reactive Protein NT-Pro-B Natriuret Pep Total Protein Albumin Urine WBC (Auto) 12/17/19 12/17/19 12/18/19 17:50 23:46 05:17 WBC RBC Hgb 8.8 L Hct 28.0 L MCHC RDW Lymph % (Auto) [place] % (Auto) [place] # Eos # [place] # (Auto) Eos # (Auto) Seg Neutrophils % Seg Neuts % (Manual) Baso # (Auto) Lymphocytes % (Manual) Monocytes % (Manual) Eosinophils % (Manual) Basophils % (Manual) Seg Neutrophils # Seg Neutrophils # Man Lymphocytes # (Manual) Monocytes # (Manual) Eosinophils # (Manual) Nucleated RBC % Basophils # (Manual) APTT Heparin Anti-Xa Level ABG pH POC ABG pO2 ABG pO2 ABG HCO3 ABG O2 Saturation ABG Base Excess POC ABG pCO2 ABG Hemoglobin ABG Oxyhemoglobin Oxyhemoglobin Sodium Potassium Chloride Carbon Dioxide BUN Creatinine Glucose POC Glucose 158 H 150 H Lactic Acid Calcium Phosphorus Magnesium AST ALT Lactate Dehydrogenase CK-MB (CK-2) C-Reactive Protein NT-Pro-B Natriuret Pep Total Protein Albumin Urine WBC (Auto) 12/18/19 12/18/19 12/18/19 05:17 05:49 11:12 WBC RBC Hgb Hct MCHC RDW Lymph % (Auto) [place] % (Auto) [place] # Eos # [place] # (Auto) Eos # (Auto) Seg Neutrophils % Seg Neuts % (Manual) Baso # (Auto) Lymphocytes % (Manual) Monocytes % (Manual) Eosinophils % (Manual) Basophils % (Manual) Seg Neutrophils # Seg Neutrophils # Man Lymphocytes # (Manual) Monocytes # (Manual) Eosinophils # (Manual) Nucleated RBC % Basophils # (Manual) APTT Heparin Anti-Xa Level 0.16 L ABG pH POC ABG pO2 ABG pO2 ABG HCO3 ABG O2 Saturation ABG Base Excess POC ABG pCO2 ABG Hemoglobin ABG Oxyhemoglobin Oxyhemoglobin Sodium Potassium Chloride Carbon Dioxide BUN Creatinine Glucose POC Glucose 127 H 191 H Lactic Acid Calcium Phosphorus Magnesium AST ALT Lactate Dehydrogenase CK-MB (CK-2) C-Reactive Protein NT-Pro-B Natriuret Pep Total Protein Albumin Urine WBC (Auto) 12/18/19 12/18/19 12/19/19 17:03 20:16 00:08 WBC RBC Hgb Hct MCHC RDW Lymph % (Auto) [place] % (Auto) [place] # Eos # [place] # (Auto) Eos # (Auto) Seg Neutrophils % Seg Neuts % (Manual) Baso # (Auto) Lymphocytes % (Manual) Monocytes % (Manual) Eosinophils % (Manual) Basophils % (Manual) Seg Neutrophils # Seg Neutrophils # Man Lymphocytes # (Manual) Monocytes # (Manual) Eosinophils # (Manual) Nucleated RBC % Basophils # (Manual) APTT Heparin Anti-Xa Level ABG pH POC ABG pO2 ABG pO2 ABG HCO3 ABG O2 Saturation ABG Base Excess POC ABG pCO2 ABG Hemoglobin ABG Oxyhemoglobin Oxyhemoglobin Sodium Potassium Chloride Carbon Dioxide BUN Creatinine Glucose POC Glucose 133 H 128 H 129 H Lactic Acid Calcium Phosphorus Magnesium AST ALT Lactate Dehydrogenase CK-MB (CK-2) C-Reactive Protein NT-Pro-B Natriuret Pep Total Protein Albumin Urine WBC (Auto) 12/19/19 12/19/19 12/19/19 04:45 04:45 05:35 WBC RBC Hgb Hct MCHC RDW Lymph % (Auto) [place] % (Auto) [place] # Eos # [place] # (Auto) Eos # (Auto) Seg Neutrophils % Seg Neuts % (Manual) Baso # (Auto) Lymphocytes % (Manual) Monocytes % (Manual) Eosinophils % (Manual) Basophils % (Manual) Seg Neutrophils # Seg Neutrophils # Man Lymphocytes # (Manual) Monocytes # (Manual) Eosinophils # (Manual) Nucleated RBC % Basophils # (Manual) APTT Heparin Anti-Xa Level 0.17 L ABG pH POC ABG pO2 ABG pO2 ABG HCO3 ABG O2 Saturation ABG Base Excess POC ABG pCO2 ABG Hemoglobin ABG Oxyhemoglobin Oxyhemoglobin Sodium Potassium Chloride Carbon Dioxide BUN Creatinine Glucose POC Glucose 120 H Lactic Acid Calcium Phosphorus Magnesium AST ALT Lactate Dehydrogenase 228 H CK-MB (CK-2) C-Reactive Protein NT-Pro-B Natriuret Pep Total Protein Albumin Urine WBC (Auto) 12/19/19 12/19/19 12/19/19 09:20 11:32 11:32 WBC 14.6 H RBC 3.08 L Hgb 9.0 L Hct 26.8 L MCHC RDW 15.9 H Lymph % (Auto) [place] % (Auto) [place] # Eos # [place] # (Auto) Eos # (Auto) Seg Neutrophils % Seg Neuts % (Manual) 82.0 H Baso # (Auto) Lymphocytes % (Manual) 10.0 L Monocytes % (Manual) Eosinophils % (Manual) Basophils % (Manual) Seg Neutrophils # Seg Neutrophils # Man 12.0 H Lymphocytes # (Manual) Monocytes # (Manual) 0.9 H Eosinophils # (Manual) Nucleated RBC % 1.0 H Basophils # (Manual) APTT Heparin Anti-Xa Level ABG pH 7.451 H POC ABG pO2 ABG pO2 62.6 L ABG HCO3 33.2 H ABG O2 Saturation 93.8 L ABG Base Excess 8.3 H POC ABG pCO2 ABG Hemoglobin 8.3 L ABG Oxyhemoglobin Oxyhemoglobin 91.9 L Sodium Potassium Chloride 95.0 L Carbon Dioxide 33 H BUN 22 H Creatinine 0.6 L Glucose 150 H POC Glucose Lactic Acid Calcium Phosphorus Magnesium AST ALT Lactate Dehydrogenase CK-MB (CK-2) C-Reactive Protein NT-Pro-B Natriuret Pep Total Protein 6.2 L Albumin 2.4 L Urine WBC (Auto) 12/19/19 12/19/19 12/20/19 11:56 18:17 00:09 WBC RBC Hgb Hct MCHC RDW Lymph % (Auto) [place] % (Auto) [place] # Eos # [place] # (Auto) Eos # (Auto) Seg Neutrophils % Seg Neuts % (Manual) Baso # (Auto) Lymphocytes % (Manual) Monocytes % (Manual) Eosinophils % (Manual) Basophils % (Manual) Seg Neutrophils # Seg Neutrophils # Man Lymphocytes # (Manual) Monocytes # (Manual) Eosinophils # (Manual) Nucleated RBC % Basophils # (Manual) APTT Heparin Anti-Xa Level ABG pH POC ABG pO2 ABG pO2 ABG HCO3 ABG O2 Saturation ABG Base Excess POC ABG pCO2 ABG Hemoglobin ABG Oxyhemoglobin Oxyhemoglobin Sodium Potassium Chloride Carbon Dioxide BUN Creatinine Glucose POC Glucose 156 H 156 H 155 H Lactic Acid Calcium Phosphorus Magnesium AST ALT Lactate Dehydrogenase CK-MB (CK-2) C-Reactive Protein NT-Pro-B Natriuret Pep Total Protein Albumin Urine WBC (Auto) 12/20/19 12/20/19 12/20/19 05:26 06:02 18:17 WBC RBC Hgb Hct MCHC RDW Lymph % (Auto) [place] % (Auto) [place] # Eos # [place] # (Auto) Eos # (Auto) Seg Neutrophils % Seg Neuts % (Manual) Baso # (Auto) Lymphocytes % (Manual) Monocytes % (Manual) Eosinophils % (Manual) Basophils % (Manual) Seg Neutrophils # Seg Neutrophils # Man Lymphocytes # (Manual) Monocytes # (Manual) Eosinophils # (Manual) Nucleated RBC % Basophils # (Manual) APTT Heparin Anti-Xa Level 0.19 L ABG pH POC ABG pO2 ABG pO2 ABG HCO3 ABG O2 Saturation ABG Base Excess POC ABG pCO2 ABG Hemoglobin ABG Oxyhemoglobin Oxyhemoglobin Sodium Potassium Chloride Carbon Dioxide BUN Creatinine Glucose POC Glucose 137 H 128 H Lactic Acid Calcium Phosphorus Magnesium AST ALT Lactate Dehydrogenase CK-MB (CK-2) C-Reactive Protein NT-Pro-B Natriuret Pep Total Protein Albumin Urine WBC (Auto) 12/20/19 12/21/19 12/21/19 23:34 05:31 05:31 WBC 12.7 H RBC 3.09 L Hgb 8.9 L Hct 27.4 L MCHC RDW 15.8 H Lymph % (Auto) 12.1 L [place] % (Auto) 7.8 H [place] # Eos # [place] # (Auto) 1.0 H Eos # (Auto) Seg Neutrophils % 77.1 H Seg Neuts % (Manual) Baso # (Auto) Lymphocytes % (Manual) Monocytes % (Manual) Eosinophils % (Manual) Basophils % (Manual) Seg Neutrophils # 9.8 H Seg Neutrophils # Man Lymphocytes # (Manual) Monocytes # (Manual) Eosinophils # (Manual) Nucleated RBC % Basophils # (Manual) APTT Heparin Anti-Xa Level ABG pH POC ABG pO2 ABG pO2 ABG HCO3 ABG O2 Saturation ABG Base Excess POC ABG pCO2 ABG Hemoglobin ABG Oxyhemoglobin Oxyhemoglobin Sodium Potassium Chloride 96.9 L Carbon Dioxide 37 H BUN 27 H Creatinine 0.7 L Glucose 140 H POC Glucose 145 H Lactic Acid Calcium Phosphorus Magnesium AST ALT Lactate Dehydrogenase CK-MB (CK-2) C-Reactive Protein NT-Pro-B Natriuret Pep Total Protein Albumin Urine WBC (Auto) 12/21/19 12/21/19 12/21/19 05:38 10:13 11:51 WBC RBC Hgb Hct MCHC RDW Lymph % (Auto) [place] % (Auto) [place] # Eos # [place] # (Auto) Eos # (Auto) Seg Neutrophils % Seg Neuts % (Manual) Baso # (Auto) Lymphocytes % (Manual) Monocytes % (Manual) Eosinophils % (Manual) Basophils % (Manual) Seg Neutrophils # Seg Neutrophils # Man Lymphocytes # (Manual) Monocytes # (Manual) Eosinophils # (Manual) Nucleated RBC % Basophils # (Manual) APTT 23.9 L Heparin Anti-Xa Level < 0.10 L ABG pH POC ABG pO2 ABG pO2 ABG HCO3 ABG O2 Saturation ABG Base Excess POC ABG pCO2 ABG Hemoglobin ABG Oxyhemoglobin Oxyhemoglobin Sodium Potassium Chloride Carbon Dioxide BUN Creatinine Glucose POC Glucose 151 H 145 H Lactic Acid Calcium Phosphorus Magnesium AST ALT Lactate Dehydrogenase CK-MB (CK-2) C-Reactive Protein NT-Pro-B Natriuret Pep Total Protein Albumin Urine WBC (Auto) 12/21/19 12/22/19 12/22/19 17:16 00:01 01:33 WBC RBC Hgb Hct MCHC RDW Lymph % (Auto) [place] % (Auto) [place] # Eos # [place] # (Auto) Eos # (Auto) Seg Neutrophils % Seg Neuts % (Manual) Baso # (Auto) Lymphocytes % (Manual) Monocytes % (Manual) Eosinophils % (Manual) Basophils % (Manual) Seg Neutrophils # Seg Neutrophils # Man Lymphocytes # (Manual) Monocytes # (Manual) Eosinophils # (Manual) Nucleated RBC % Basophils # (Manual) APTT Heparin Anti-Xa Level 0.10 L ABG pH POC ABG pO2 ABG pO2 ABG HCO3 ABG O2 Saturation ABG Base Excess POC ABG pCO2 ABG Hemoglobin ABG Oxyhemoglobin Oxyhemoglobin Sodium Potassium Chloride Carbon Dioxide BUN Creatinine Glucose POC Glucose 167 H 179 H Lactic Acid Calcium Phosphorus Magnesium AST ALT Lactate Dehydrogenase CK-MB (CK-2) C-Reactive Protein NT-Pro-B Natriuret Pep Total Protein Albumin Urine WBC (Auto) 12/22/19 12/22/19 12/22/19 03:22 05:10 05:10 WBC 13.8 H RBC 3.20 L Hgb 8.9 L Hct 28.1 L MCHC RDW 15.9 H Lymph % (Auto) [place] % (Auto) [place] # Eos # [place] # (Auto) Eos # (Auto) Seg Neutrophils % Seg Neuts % (Manual) Baso # (Auto) Lymphocytes % (Manual) Monocytes % (Manual) Eosinophils % (Manual) Basophils % (Manual) Seg Neutrophils # Seg Neutrophils # Man Lymphocytes # (Manual) Monocytes # (Manual) Eosinophils # (Manual) Nucleated RBC % Basophils # (Manual) APTT Heparin Anti-Xa Level ABG pH POC ABG pO2 52.3 L ABG pO2 ABG HCO3 ABG O2 Saturation ABG Base Excess POC ABG pCO2 52.9 H ABG Hemoglobin 10.7 L ABG Oxyhemoglobin 84 L Oxyhemoglobin Sodium Potassium Chloride 96.6 L Carbon Dioxide BUN 25 H Creatinine 0.7 L Glucose 129 H POC Glucose Lactic Acid Calcium Phosphorus Magnesium AST ALT Lactate Dehydrogenase CK-MB (CK-2) C-Reactive Protein NT-Pro-B Natriuret Pep Total Protein Albumin Urine WBC (Auto) 12/22/19 12/22/19 12/22/19 05:18 12:32 12:43 WBC RBC Hgb Hct MCHC RDW Lymph % (Auto) [place] % (Auto) [place] # Eos # [place] # (Auto) Eos # (Auto) Seg Neutrophils % Seg Neuts % (Manual) Baso # (Auto) Lymphocytes % (Manual) Monocytes % (Manual) Eosinophils % (Manual) Basophils % (Manual) Seg Neutrophils # Seg Neutrophils # Man Lymphocytes # (Manual) Monocytes # (Manual) Eosinophils # (Manual) Nucleated RBC % Basophils # (Manual) APTT Heparin Anti-Xa Level 0.18 L ABG pH POC ABG pO2 ABG pO2 ABG HCO3 ABG O2 Saturation ABG Base Excess POC ABG pCO2 ABG Hemoglobin ABG Oxyhemoglobin Oxyhemoglobin Sodium Potassium Chloride Carbon Dioxide BUN Creatinine Glucose POC Glucose 131 H 208 H Lactic Acid Calcium Phosphorus Magnesium AST ALT Lactate Dehydrogenase CK-MB (CK-2) C-Reactive Protein NT-Pro-B Natriuret Pep Total Protein Albumin Urine WBC (Auto) 12/22/19 12/22/19 12/23/19 17:44 23:20 03:51 WBC 15.2 H RBC 3.43 L Hgb 9.6 L Hct 30.3 L MCHC RDW 15.9 H Lymph % (Auto) [place] % (Auto) [place] # Eos # [place] # (Auto) Eos # (Auto) Seg Neutrophils % Seg Neuts % (Manual) Baso # (Auto) Lymphocytes % (Manual) Monocytes % (Manual) Eosinophils % (Manual) Basophils % (Manual) Seg Neutrophils # Seg Neutrophils # Man Lymphocytes # (Manual) Monocytes # (Manual) Eosinophils # (Manual) Nucleated RBC % Basophils # (Manual) APTT Heparin Anti-Xa Level ABG pH POC ABG pO2 ABG pO2 ABG HCO3 ABG O2 Saturation ABG Base Excess POC ABG pCO2 ABG Hemoglobin ABG Oxyhemoglobin Oxyhemoglobin Sodium Potassium Chloride Carbon Dioxide BUN Creatinine Glucose POC Glucose 209 H 119 H Lactic Acid Calcium Phosphorus Magnesium AST ALT Lactate Dehydrogenase CK-MB (CK-2) C-Reactive Protein NT-Pro-B Natriuret Pep Total Protein Albumin Urine WBC (Auto) 12/23/19 12/23/19 12/23/19 03:51 05:31 12:09 WBC RBC Hgb Hct MCHC RDW Lymph % (Auto) [place] % (Auto) [place] # Eos # [place] # (Auto) Eos # (Auto) Seg Neutrophils % Seg Neuts % (Manual) Baso # (Auto) Lymphocytes % (Manual) Monocytes % (Manual) Eosinophils % (Manual) Basophils % (Manual) Seg Neutrophils # Seg Neutrophils # Man Lymphocytes # (Manual) Monocytes # (Manual) Eosinophils # (Manual) Nucleated RBC % Basophils # (Manual) APTT Heparin Anti-Xa Level ABG pH POC ABG pO2 ABG pO2 ABG HCO3 ABG O2 Saturation ABG Base Excess POC ABG pCO2 ABG Hemoglobin ABG Oxyhemoglobin Oxyhemoglobin Sodium Potassium Chloride 97.2 L Carbon Dioxide 31 H BUN 23 H Creatinine 0.6 L Glucose 153 H POC Glucose 149 H 144 H Lactic Acid Calcium Phosphorus Magnesium AST ALT Lactate Dehydrogenase CK-MB (CK-2) C-Reactive Protein NT-Pro-B Natriuret Pep Total Protein Albumin Urine WBC (Auto) 12/23/19 12/23/19 12/23/19 15:30 17:49 23:31 WBC RBC Hgb Hct MCHC RDW Lymph % (Auto) [place] % (Auto) [place] # Eos # [place] # (Auto) Eos # (Auto) Seg Neutrophils % Seg Neuts % (Manual) Baso # (Auto) Lymphocytes % (Manual) Monocytes % (Manual) Eosinophils % (Manual) Basophils % (Manual) Seg Neutrophils # Seg Neutrophils # Man Lymphocytes # (Manual) Monocytes # (Manual) Eosinophils # (Manual) Nucleated RBC % Basophils # (Manual) APTT Heparin Anti-Xa Level 0.21 L ABG pH POC ABG pO2 ABG pO2 ABG HCO3 ABG O2 Saturation ABG Base Excess POC ABG pCO2 ABG Hemoglobin ABG Oxyhemoglobin Oxyhemoglobin Sodium Potassium Chloride Carbon Dioxide BUN Creatinine Glucose POC Glucose 192 H 151 H Lactic Acid Calcium Phosphorus Magnesium AST ALT Lactate Dehydrogenase CK-MB (CK-2) C-Reactive Protein NT-Pro-B Natriuret Pep Total Protein Albumin Urine WBC (Auto) 12/24/19 12/24/19 12/24/19 05:34 12:13 16:50 WBC RBC Hgb Hct MCHC RDW Lymph % (Auto) [place] % (Auto) [place] # Eos # [place] # (Auto) Eos # (Auto) Seg Neutrophils % Seg Neuts % (Manual) Baso # (Auto) Lymphocytes % (Manual) Monocytes % (Manual) Eosinophils % (Manual) Basophils % (Manual) Seg Neutrophils # Seg Neutrophils # Man Lymphocytes # (Manual) Monocytes # (Manual) Eosinophils # (Manual) Nucleated RBC % Basophils # (Manual) APTT Heparin Anti-Xa Level 0.16 L ABG pH POC ABG pO2 ABG pO2 ABG HCO3 ABG O2 Saturation ABG Base Excess POC ABG pCO2 ABG Hemoglobin ABG Oxyhemoglobin Oxyhemoglobin Sodium Potassium Chloride Carbon Dioxide BUN Creatinine Glucose POC Glucose 145 H 124 H Lactic Acid Calcium Phosphorus Magnesium AST ALT Lactate Dehydrogenase CK-MB (CK-2) C-Reactive Protein NT-Pro-B Natriuret Pep Total Protein Albumin Urine WBC (Auto) 12/24/19 12/25/19 12/25/19 17:53 00:14 04:18 WBC 12.9 H RBC 3.30 L Hgb 9.1 L Hct 28.8 L MCHC RDW 16.4 H Lymph % (Auto) [place] % (Auto) 7.8 H [place] # Eos # [place] # (Auto) 1.0 H Eos # (Auto) Seg Neutrophils % 75.5 H Seg Neuts % (Manual) Baso # (Auto) Lymphocytes % (Manual) Monocytes % (Manual) Eosinophils % (Manual) Basophils % (Manual) Seg Neutrophils # 9.7 H Seg Neutrophils # Man Lymphocytes # (Manual) Monocytes # (Manual) Eosinophils # (Manual) Nucleated RBC % Basophils # (Manual) APTT Heparin Anti-Xa Level ABG pH POC ABG pO2 ABG pO2 ABG HCO3 ABG O2 Saturation ABG Base Excess POC ABG pCO2 ABG Hemoglobin ABG Oxyhemoglobin Oxyhemoglobin Sodium Potassium Chloride Carbon Dioxide BUN Creatinine Glucose POC Glucose 164 H 148 H Lactic Acid Calcium Phosphorus Magnesium AST ALT Lactate Dehydrogenase CK-MB (CK-2) C-Reactive Protein NT-Pro-B Natriuret Pep Total Protein Albumin Urine WBC (Auto) 12/25/19 12/25/19 12/25/19 04:18 05:38 11:44 WBC RBC Hgb Hct MCHC RDW Lymph % (Auto) [place] % (Auto) [place] # Eos # [place] # (Auto) Eos # (Auto) Seg Neutrophils % Seg Neuts % (Manual) Baso # (Auto) Lymphocytes % (Manual) Monocytes % (Manual) Eosinophils % (Manual) Basophils % (Manual) Seg Neutrophils # Seg Neutrophils # Man Lymphocytes # (Manual) Monocytes # (Manual) Eosinophils # (Manual) Nucleated RBC % Basophils # (Manual) APTT Heparin Anti-Xa Level ABG pH POC ABG pO2 ABG pO2 ABG HCO3 ABG O2 Saturation ABG Base Excess POC ABG pCO2 ABG Hemoglobin ABG Oxyhemoglobin Oxyhemoglobin Sodium Potassium Chloride Carbon Dioxide 33 H BUN 27 H Creatinine 0.6 L Glucose 132 H POC Glucose 152 H 166 H Lactic Acid Calcium Phosphorus Magnesium AST ALT Lactate Dehydrogenase CK-MB (CK-2) C-Reactive Protein NT-Pro-B Natriuret Pep Total Protein Albumin Urine WBC (Auto) 12/25/19 12/26/19 12/26/19 18:29 00:17 00:18 WBC RBC Hgb Hct MCHC RDW Lymph % (Auto) [place] % (Auto) [place] # Eos # [place] # (Auto) Eos # (Auto) Seg Neutrophils % Seg Neuts % (Manual) Baso # (Auto) Lymphocytes % (Manual) Monocytes % (Manual) Eosinophils % (Manual) Basophils % (Manual) Seg Neutrophils # Seg Neutrophils # Man Lymphocytes # (Manual) Monocytes # (Manual) Eosinophils # (Manual) Nucleated RBC % Basophils # (Manual) APTT Heparin Anti-Xa Level ABG pH POC ABG pO2 ABG pO2 ABG HCO3 ABG O2 Saturation ABG Base Excess POC ABG pCO2 ABG Hemoglobin ABG Oxyhemoglobin Oxyhemoglobin Sodium Potassium Chloride 97.8 L Carbon Dioxide BUN 25 H Creatinine 0.6 L Glucose 140 H POC Glucose 194 H 151 H Lactic Acid Calcium Phosphorus Magnesium AST ALT Lactate Dehydrogenase CK-MB (CK-2) C-Reactive Protein NT-Pro-B Natriuret Pep Total Protein Albumin Urine WBC (Auto) 12/26/19 12/26/19 05:36 11:41 WBC RBC Hgb Hct MCHC RDW Lymph % (Auto) [place] % (Auto) [place] # Eos # [place] # (Auto) Eos # (Auto) Seg Neutrophils % Seg Neuts % (Manual) Baso # (Auto) Lymphocytes % (Manual) Monocytes % (Manual) Eosinophils % (Manual) Basophils % (Manual) Seg Neutrophils # Seg Neutrophils # Man Lymphocytes # (Manual) Monocytes # (Manual) Eosinophils # (Manual) Nucleated RBC % Basophils # (Manual) APTT Heparin Anti-Xa Level ABG pH POC ABG pO2 ABG pO2 ABG HCO3 ABG O2 Saturation ABG Base Excess POC ABG pCO2 ABG Hemoglobin ABG Oxyhemoglobin Oxyhemoglobin Sodium Potassium Chloride Carbon Dioxide BUN Creatinine Glucose POC Glucose 156 H 148 H Lactic Acid Calcium Phosphorus Magnesium AST ALT Lactate Dehydrogenase CK-MB (CK-2) C-Reactive Protein NT-Pro-B Natriuret Pep Total Protein Albumin Urine WBC (Auto) Chest x-ray: other (none today) Allied health notes reviewed: nursing
[2019-12-26] MEDS: HEPARIN/ 0.45% NACL DRIP 25,000 UNIT/500 ML BAG IV SCH (16:13)
[2019-12-26] MEDS: fentaNYL 100 MCG/2 ML INJ IV PRN ×2 (16:51→22:26)
--- NOTE | 2019-12-26 17:24 | Progress Note ---
Assessment and Plan Transient Afib after CPAP trial currently in sinus rhythm Ischemic Cardiomyopathy, resolving re-echo this presentation reports an LVEF 40-45%. echo 08/2018: decreased LVEF 20-25%. Hx of CAD [facility] 12/2018: mild in-stent restenosis. No significant residual disease. Multifocal pneumonia with intermittent fevers negative COVID-19 test x 2 Respiratory failure Acute PE/DVT on IV heparin Recommendations: Continue amiodarone and metoprolol for suppression of paroxysmal atrial fibrillation. Otherwise, conservative cardiac management. We will follow intermittently. Subjective Date of service: 12/26/19 Principal diagnosis: Ac hypoxemic resp failure; Pneumonia; PUI COVID-19; CHF; COPD; HTN Interval history: No acute events Objective Vital Signs Temp Pulse Pulse Resp BP Pulse Ox 12/26/19 16:00 98.0 F 87 87 22 100/68 96 12/26/19 15:54 88 105/73 96 12/26/19 15:00 91 H 22 105/73 97 12/26/19 14:12 98 H 120/81 12/26/19 14:00 89 19 104/71 92 12/26/19 13:00 95 H 21 120/81 89 12/26/19 12:00 98.4 F 93 H 82 17 119/75 89 12/26/19 11:37 88 22 116/78 98 12/26/19 11:00 89 21 116/78 99 12/26/19 10:00 94 H 19 117/79 88 12/26/19 09:00 90 15 107/73 93 12/26/19 08:00 98.3 F 84 82 22 105/78 97 12/26/19 07:46 84 102/74 96 12/26/19 07:00 79 24 102/74 95 12/26/19 06:18 87 106/78 12/26/19 06:00 87 22 106/78 97 12/26/19 05:00 83 22 102/72 97 12/26/19 04:00 88 78 24 107/81 98 12/26/19 03:28 84 107/81 98 12/26/19 03:26 98.9 F 12/26/19 03:00 89 13 107/81 93 12/26/19 02:01 94 H 16 104/71 95 12/26/19 01:00 84 25 H 104/71 12/26/19 00:05 78 29 H 99/70 97 12/26/19 00:00 79 78 23 99/70 92 12/25/19 23:34 98.6 F 12/25/19 23:26 78 95/74 98 12/25/19 23:00 84 24 95/74 91 12/25/19 22:00 92 H 17 107/71 92 12/25/19 21:38 110 H 118/81 12/25/19 21:00 90 22 118/81 92 12/25/19 20:00 99.2 F 79 80 23 113/74 95 12/25/19 19:18 84 104/73 96 12/25/19 19:00 85 24 104/73 92 12/25/19 18:00 86 22 112/78 99 12/25/19 17:31 85 21 109/76 95 - Physical Examination General: Other (intubated on the vent) HEENT: Positive: PERRL Neck: Positive: neck supple Cardiac: Positive: Reg Rate and Rhythm Lungs: Positive: Rhonchi Abdomen: Positive: Soft Skin: Positive: Clear Extremities: Absent: edema - Labs and Meds Comprehensive Metabolic Panel 12/26/19 Range/Units 00:18 Sodium 140 (137-145) mmol/L Potassium 3.7 (3.6-5.0) mmol/L Chloride 97.8 L (98-107) mmol/L Carbon Dioxide 29 (22-30) mmol/L BUN 25 H (9-20) mg/dL Creatinine 0.6 L (0.8-1.3) mg/dL Glucose 140 H (75-100) mg/dL Calcium 9.2 (8.4-10.2) mg/dL - Allied health notes Allied health notes reviewed: nursing
[2019-12-26] MEDS: POLYETHYLENE GLYCOL 3350 17 GM POWDER PO SCH (21:28)
[2019-12-26] MEDS: TAMSULOSIN 0.4 MG CAP PO SCH (22:27)
[2019-12-27] MEDS: DOCUSATE SODIUM 100 MG/10 ML ORAL LIQD FEEDTUBE SCH ×3 (00:07→21:58)
[2019-12-27] MEDS: INSULIN LISPRO 100 UNIT/ML VIAL 3 mL SUB-Q SCH ×4 (00:39→20:02)
[2019-12-27] MEDS: METOPROLOL TARTRATE 50 MG TAB PO SCH ×3 (06:42→21:59)
[2019-12-27] MEDS: fentaNYL 100 MCG/2 ML INJ IV PRN ×2 (09:45→20:05)
[2019-12-27] MEDS: HEPARIN/ 0.45% NACL DRIP 25,000 UNIT/500 ML BAG IV SCH (09:46)
[2019-12-27] MEDS: QUEtiapine 200 MG TAB PO SCH ×2 (09:50→21:59)
[2019-12-27] MEDS: AMIODARONE 200 MG TAB PO SCH ×2 (09:50→21:59)
[2019-12-27] MEDS: FAMOTIDINE 20 MG TAB PO SCH ×2 (09:51→21:58)
--- NOTE | 2019-12-27 14:51 | Progress Note ---
Assessment and Plan -Acute LLL PE -Acute RLE DVT -Persistent fevers; secondary to sepsis and acute PE/DVT -Severe sepsis; secondary to bilateral pneumonia, persistent fevers -Acute hypoxemic respiratory failure, on vent unable to wean -Bilateral pneumonia, community acquired, -Aspiration Pneumonia -Sustained SVT, on amiodarone -Acute on chronic systolic congestive heart failure -History of cerebrovascular accident. -Tobacco use disorder -Alcohol abuse with DT -Acute chronic obstructive pulmonary disease exacerbation. -Hypertension and hypertensive urgency at presentation. -History of arthritis. -Paroxysmal atrial fibrillation -Leukocytosis with possible sepsis. -Lactic acidosis. -Bleeding from ET tube -Oropharyngeal dysphagia -S/P Knee surgery -History of peptic Ulcer Surgery -DVT prophylaxis COVID-19 test; 11/24/2019; negative 11/26/2019; negative Plan Continue ventilatory support Wean as tolerated as per critical care Completed abx, ID following Aspiration precautions Continue amiodarone and metoprolol for suppression of paroxysmal atrial fibrillation. Anticoagulation currently with intravenous heparin. thoracentesis cancelled as not much fluid to drawn May need trach and PEG DVT/GI prophy Heparin/Protonix Plan of care reviewed with the patient's nurse Closely monitor the patient and adjust management as needed The high probability of a clinically significant, sudden or life threatening deterioration of the [Respiratory, cardiovascular & neurological] system(s) required my full and direct attention, intervention and personal management. The aggregate critical care time was [33] minutes without overlap. Time includes spent on [x] Data Review and interpretation [x] Patient assessment and monitoring of vital signs [x] Documentation [x] Medication orders and management Brief History Patient is a 64-year-old male with known history of hypertension, COPD, history of coronary artery disease, CHF with ejection fraction of 20 to 25% in August 2018 presenting to the emergency room via EMS complaining of shortness of breath. Patient was found to be hypoxic and in respiratory distress. Patient was placed on CPAP in route to the hospital. Oxygen saturation was said to be 88%. Started on Solu-Medrol, Lasix and magnesium in ED, patient was also found to be lethargic with an oxygen saturation of about 91% on CPAP. He was subsequently intubated. Work-up in the emergency room including chest x-ray reveals bilateral pneumonia. He had an elevated white count of 14 and also had an elevated BNP. Patient admitted to the ICU and placed on empiric IV antibiotics for pneumonia. He tested negative for COVID-19 and placed on isolation precautions. Remains intubated on ventilatory support, sputum cultures positive for Pseudomonas, ID treated with cefepime and Vanco. His hospital course became complicated with acute PE, DVT, paroxysmal atrial fib - placed on heparin drip. Patient difficult to wean off, remains intubated. 11/25: Leukocytosis improving. Continue current management anticipate extubation possible today. 11/26. Still intubated. Failed SBT yesterday. Repeat COVID-19 test is negative. 11/27. CT head ordered for possible neuro status change is negative. More responsive as the day progressed as per RN. Chest xray today shows interval improvement. He is still on antibiotics - will complete regimen today. 11/28: Considering difficult extubation and severe cardiomyopathy, will obtain cardiology consult. Aspiration precautions, tube feeds held, continue antibiotics. 11/29: Still with intermittent fever but improving imaging, continue diuresis. 11/30; Extremely agitated when placed on PSV- SVT, hypertension. Patiet acknow ledged that he drinks. IV Ativan given, CIWA protocol initiated. 12 lead ordered showed SVT, one dose of amiodarone ordered. continue to follow up cardiology recommendation 12/01: Patient remains on mechanical ventilation, getting SBT trial. Remains in SVT, started on amiodarone drip by cardiology. 12/02; patient is on mechanical ventilation and on spontaneous breathing trial. Cardiology started the patient on PO amiodarone. Patient is on cefepime. 12/03: patient is on mechanical ventilation. Cardiology started the patient on PO amiodarone for SVT. Patient is on cefepime, no fever overnight. 12/04: Patient is sedated and on mechanical ventilation. Patient had fever yesterday afternoon 102.3, ID changed his cefepime to meropenem. Heart rate is controlled, cardiology is following. Patient has paroxysmal atrial fibrillation and on amiodarone and metoprolol, subcu heparin for anticoagulation and will need oral anticoagulation once stable. 12/05: Sputum cultures positive for Pseudomonas, ID following 12/06; patient is febrile T-max 24 hours 102 F ,ID change antibiotics to cefepime and Vancomycin 12/07: resumed care. Na 149 today, start on 03/26 NS. cont current care 12/08: remains in a stable sinus rhythm and stable blood pressure, continue supportive care. wean off vent as tolerated. persistent fever - ordered CTA chest 12/09: noted bloody discharges from ET tube last night. CTA and LE venous doppler positive for acute PE and DVT. resume heparin drip, consult vascular for possible EKOS/ IVC filter. monitor h/h. cont SBT trial, wean off vent as tolerated. called but no answer 12/10: cont heparin drip for acute PE and DVT, follow vascular recommendation. monitor h/h, wean off vent as tolerated 12/11: o/n had bleeding from ET tube, cont to monitor h/h. vascular recommending medical Mx. called ; Nicolle Araiza [phone]. 12/12: H&H remained stable, patient on heparin drip. Discussed with yesterday. Discussed with critical care attending. Patient not tolerating SBT trial. Continue to wean off from vent as tolerated, follow clinically. Tolerating tube feeding 12/13: Continue heparin drip, wean off from vent as tolerated. Discussed with pulmonary attending if no improvement by the end of 3 weeks of intubation patient may need trach and PEG. Continue to provide supportive care, follow CBC and BMP. 12/14: Stop cefepime today, wean off from vent as tolerated. cont Heparin infusion, while monitoring for bleeding 12/15: Patient is not tolerating SBT trial, becoming apnic on CPAP. May need to place on trach and PEG. Continue heparin drip, monitor off antibiotics 12/16. Still maintained on vent. May need PEG and trach as her has been failed SBTs 12/17. Had low UO overnight. Started on tamsulosin. May need PEG and trach - defer to pulm. 12/18-. Plan for US thoracentesis to help with weaning. Remains on heparin drip for VTE. 12/20. Discussed with spouse today. He will get thoracentesis today. INR/PTT ordered. Heparin drip held. 12/21: planned for trach and PEG, cont supportive care, thoracentesis cancelled 12/22: cont supportive care, wean off from vent, daily SBT 12/23: tolerating SBT, possible extubation soon. cont supportive care 12/24: wean off vent as tolerated, daily SBT, follow clinically 12/25; cont to monitor, wean off vent as tolerated 12/26: Continue to monitor wean off vent as tolerated patient is tolerating SBT trial well Subjective Date of service: 12/27/19 Principal diagnosis: Ac hypoxemic resp failure; Pneumonia; PUI COVID-19; CHF; COPD; HTN Interval history: Patient seen and examined Patient intubated on mechanical ventilation Discussed with RN at the bedside H/H STABLE, patient remains on heparin drip Objective - Exam Narrative Exam: General appearance: Present: well-nourished, other (Intubated), opens eyes to names and follows minor command - EENT Eyes: Present: PERRL, EOM intact. Absent: scleral icterus ENT: clear oral mucosa, dentition normal - Neck Neck: Present: supple, normal ROM - Respiratory Respiratory effort: normal, mechanical ventilation Respiratory: bilateral: rales - Cardiovascular Rhythm: regular Heart Sounds: Present: S1 & S2, tachycardic. Absent: gallop, systolic murmur, diastolic murmur, rub - Extremities Extremities: no ischemia, pulses intact, pulses symmetrical, No edema, Full ROM Peripheral Pulses: within normal limits - Abdominal General gastrointestinal: Present: soft, non-tender, non-distended, normal bowel sounds. Absent: mass - Integumentary Integumentary: Present: clear, warm, dry. Absent: rash - Musculoskeletal Musculoskeletal: no joint swelling - Psychiatric Psychiatric: sedated Neurology: no focal deficits - Constitutional Vitals: Vital Signs - 12hr 12/27/19 12/27/19 12/27/19 03:00 04:00 04:53 Temperature 97.9 F Pulse Rate 93 H 95 H 91 H Pulse Rate [ 91 H From Monitor] Respiratory 21 21 Rate Blood Pressure 104/77 100/79 100/79 O2 Sat by Pulse 90 94 93 Oximetry 12/27/19 12/27/19 12/27/19 05:00 06:00 06:42 Temperature Pulse Rate 94 H 92 H 93 H Pulse Rate [ From Monitor] Respiratory 21 21 Rate Blood Pressure 109/82 119/80 119/80 O2 Sat by Pulse 90 91 Oximetry 12/27/19 12/27/19 12/27/19 07:00 07:14 08:00 Temperature Pulse Rate 90 88 97 H Pulse Rate [ From Monitor] Respiratory 21 26 H Rate Blood Pressure 110/78 110/78 119/80 O2 Sat by Pulse 94 95 91 Oximetry 12/27/19 12/27/19 12/27/19 09:00 10:00 11:00 Temperature Pulse Rate 92 H 90 98 H Pulse Rate [ From Monitor] Respiratory 24 21 21 Rate Blood Pressure 118/80 114/75 116/78 O2 Sat by Pulse 93 83 L 90 Oximetry 12/27/19 12/27/19 12/27/19 11:51 12:00 13:00 Temperature Pulse Rate 89 92 H 90 Pulse Rate [ From Monitor] Respiratory 21 21 Rate Blood Pressure 116/78 117/79 118/76 O2 Sat by Pulse 94 90 Oximetry 12/27/19 12/27/19 13:11 14:00 Temperature Pulse Rate 92 H 100 H Pulse Rate [ From Monitor] Respiratory 25 H Rate Blood Pressure 118/76 117/79 O2 Sat by Pulse Oximetry - Labs CBC & Chem 7: 12/28/19 02:41 12/28/19 02:41 Labs: Abnormal lab results 12/26/19 12/26/19 12/27/19 Range/Units 17:50 23:19 05:34 POC Glucose 139 H 161 H 145 H (70-105) 12/27/19 Range/Units 12:02 POC Glucose 157 H (70-105) HEART Score - HEART Score Troponin: Troponin T < 0.010 ng/mL (0.00-0.029) 11/24/19 02:53
--- NOTE | 2019-12-27 15:11 | Progress Note ---
Assessment and Plan Acute hypoxemic respiratory failure Bilateral pneumonia, community acquired. Acute LLL branch P.E. Acute DVT Person under investigation for COVID-19 infection. Acute congestive heart failure exacerbation. History of cerebrovascular accident. Acute chronic obstructive pulmonary disease exacerbation. Hypertension and hypertensive urgency at presentation. History of arthritis. Leukocytosis. Lactic acidosis. Oropharyngeal dysphagia - awaiting tracheostomy - continue IV Heparin for VTE (Change to oral agent post trach & PEG) - continue care as below otherwise; - continue daily SAT's and SBT assessment as tolerated - continue Flomax dose at 0.8 mg qhs - continue low dose seroquel - COVID isolation per facility protocol - free water for hypernatremia - continue diuresis while following electrolytes / I's & O's - continue to wean oxygen for O2 sat's > 92% - continue bronchodilators with pulmonary hygiene per RT - VAP bundle addressed (Aspiration precautions, HOB >40) - continue to wean per pulmonary driven protocols - sedation target is RASS 0 to -1 - continue prn analgesia per CPOT score - follow clinically re: fever curves / trend WBC - Avoid delirium (no benzodiazepines if they can be avoided) - Maintain sleep-wake cycle - enteral nutrition at goal rate as tolerated - continue accucheck's with glycemic control per SSI for target blood glucose goal of 140-180 mg/dL while critically ill; Avoid hypoglycemia - for VTE he is on IV Heparin - continue stress ulcer prophylaxis with Famotidine - continue mobility protocols for pressure ulcer prophylaxis - continue fall precautions - continue wound care management per RN / WCT - Supportive transfusions to keep HgB>7g/dL - CXR's and ABG's prn - Continue to monitor neurologic function - Continue chronic home medications - Continue all supportive care ........ re-evaluate in am & prn CONDITION: CRITICAL PROGNOSIS: GUARDED CODE STATUS: FULL CODE The high probability of a clinically significant, sudden or life threatening deterioration of the [Respiratory, cardiovascular & neurological] system(s) required my full and direct attention, intervention and personal management. The aggregate critical care time was [33] minutes without overlap. Time includes spent on [x] Data Review and interpretation [x] Patient assessment and monitoring of vital signs [x] Documentation [x] Medication orders and management Subjective Date of service: 12/27/19 Principal diagnosis: Ac hypoxemic resp failure; Pneumonia; PUI COVID-19; CHF; COPD; HTN Interval history: Patient is seen today for: Acute hypoxemic respiratory failure; Adan. Pneumonia (CAP); PUI COVID-19 infection; AE-CHF; AE-COPD; H/O CVA; HTN Seen and examined at bedside; 24 hour events reviewed; nursing and respiratory care staff consulted; no adverse overnight events reported to me; resting peacefully in bed; remains on MVS; on PSV trial with p-supp at 12 cm H2O; gestures that he is thirsty; more coherent today; No N/V/F/V; denies pain Objective Vital Signs - 12hr 12/27/19 12/27/19 12/27/19 04:00 04:53 05:00 Temperature 97.9 F Pulse Rate 95 H 91 H 94 H Pulse Rate [ 91 H From Monitor] Respiratory 21 21 Rate Blood Pressure 100/79 100/79 109/82 O2 Sat by Pulse 94 93 90 Oximetry 12/27/19 12/27/19 12/27/19 06:00 06:42 07:00 Temperature Pulse Rate 92 H 93 H 90 Pulse Rate [ From Monitor] Respiratory 21 21 Rate Blood Pressure 119/80 119/80 110/78 O2 Sat by Pulse 91 94 Oximetry 12/27/19 12/27/19 12/27/19 07:14 08:00 09:00 Temperature Pulse Rate 88 97 H 92 H Pulse Rate [ From Monitor] Respiratory 26 H 24 Rate Blood Pressure 110/78 119/80 118/80 O2 Sat by Pulse 95 91 93 Oximetry 12/27/19 12/27/19 12/27/19 10:00 11:00 11:51 Temperature Pulse Rate 90 98 H 89 Pulse Rate [ From Monitor] Respiratory 21 21 Rate Blood Pressure 114/75 116/78 116/78 O2 Sat by Pulse 83 L 90 94 Oximetry 12/27/19 12/27/19 12/27/19 12:00 13:00 13:11 Temperature Pulse Rate 92 H 90 92 H Pulse Rate [ From Monitor] Respiratory 21 21 Rate Blood Pressure 117/79 118/76 118/76 O2 Sat by Pulse 90 Oximetry 12/27/19 14:00 Temperature Pulse Rate 100 H Pulse Rate [ From Monitor] Respiratory 25 H Rate Blood Pressure 117/79 O2 Sat by Pulse Oximetry Constitutional: no acute distress, agitated, other (elderly and obese male, normocephalic with mildly increased respiratory effort at rest on MVS) Eyes: non-icteric ENT: oropharynx moist, other (ETT 24 cm JASON) Neck: supple, no JVD Effort: mildly labored Ascultation: Bilateral: diminished breath sounds, rhonchi (R>L ) Percussion: Bilateral: not dull Cardiovascular: irregular rhythm Gastrointestinal: normoactive bowel sounds, soft, non-tender, non-distended Integumentary: normal Extremities: no cyanosis, no edema, pulses normal, no ischemia or petechiae Neurologic: non-focal exam (moves all extremities with extreme agitation), pupils equal and round, motor strength normal and, other (sedated lightly) Psychiatric: mood appropriate, affect normal CBC and BMP: 12/25/19 04:18 12/26/19 00:18 ABG, PT/INR, D-dimer: ABG ABG pH 7.418 (7.320-7.450) 12/22/19 03:22 POC ABG pCO2 52.9 mmHg (32.0-48.0) H 12/22/19 03:22 ABG pCO2 48.7 mm Hg 12/19/19 09:20 POC ABG pO2 52.3 mmHg (83-108) L 12/22/19 03:22 ABG pO2 62.6 mm Hg (80.0-90.0) L 12/19/19 09:20 POC ABG HCO3 33.4 12/22/19 03:22 ABG O2 Saturation 93.8 % (95.0-99.0) L 12/19/19 09:20 PT/INR, D-dimer PT 13.8 Sec. (12.2-14.9) 12/21/19 10:13 INR 1.05 (0.87-1.13) 12/21/19 10:13 Abnormal lab findings: Abnormal Labs 11/24/19 11/24/19 11/24/19 02:53 02:53 03:45 WBC 14.3 H RBC Hgb Hct MCHC RDW 17.2 H Lymph % (Auto) Tift % (Auto) Tift # Eos # Tift # (Auto) Eos # (Auto) Seg Neutrophils % Seg Neuts % (Manual) Baso # (Auto) Lymphocytes % (Manual) Monocytes % (Manual) Eosinophils % (Manual) Basophils % (Manual) Seg Neutrophils # Seg Neutrophils # Man 8.3 H Lymphocytes # (Manual) Monocytes # (Manual) 0.9 H Eosinophils # (Manual) Nucleated RBC % Basophils # (Manual) APTT Heparin Anti-Xa Level ABG pH 7.313 L POC ABG pO2 ABG pO2 102.8 H ABG HCO3 ABG O2 Saturation ABG Base Excess -2.9 L POC ABG pCO2 ABG Hemoglobin ABG Oxyhemoglobin Oxyhemoglobin 93.9 L Sodium Potassium Chloride Carbon Dioxide BUN Creatinine Glucose 195 H POC Glucose Lactic Acid Calcium Phosphorus Magnesium AST ALT Lactate Dehydrogenase CK-MB (CK-2) 4.3 H C-Reactive Protein NT-Pro-B Natriuret Pep 1181 H Total Protein Albumin Urine WBC (Auto) 11/24/19 11/24/19 11/24/19 04:53 04:53 10:37 WBC RBC Hgb Hct MCHC RDW Lymph % (Auto) Tift % (Auto) Tift # Eos # Tift # (Auto) Eos # (Auto) Seg Neutrophils % Seg Neuts % (Manual) Baso # (Auto) Lymphocytes % (Manual) Monocytes % (Manual) Eosinophils % (Manual) Basophils % (Manual) Seg Neutrophils # Seg Neutrophils # Man Lymphocytes # (Manual) Monocytes # (Manual) Eosinophils # (Manual) Nucleated RBC % Basophils # (Manual) APTT Heparin Anti-Xa Level ABG pH POC ABG pO2 ABG pO2 ABG HCO3 ABG O2 Saturation ABG Base Excess POC ABG pCO2 ABG Hemoglobin ABG Oxyhemoglobin Oxyhemoglobin Sodium Potassium Chloride Carbon Dioxide BUN Creatinine Glucose 162 H POC Glucose Lactic Acid 2.40 H* 2.50 H* Calcium Phosphorus Magnesium AST ALT Lactate Dehydrogenase 240 H CK-MB (CK-2) C-Reactive Protein NT-Pro-B Natriuret Pep Total Protein Albumin Urine WBC (Auto) 11/24/19 11/24/19 11/24/19 12:21 14:50 19:54 WBC RBC Hgb Hct MCHC RDW Lymph % (Auto) Tift % (Auto) Tift # Eos # Tift # (Auto) Eos # (Auto) Seg Neutrophils % Seg Neuts % (Manual) Baso # (Auto) Lymphocytes % (Manual) Monocytes % (Manual) Eosinophils % (Manual) Basophils % (Manual) Seg Neutrophils # Seg Neutrophils # Man Lymphocytes # (Manual) Monocytes # (Manual) Eosinophils # (Manual) Nucleated RBC % Basophils # (Manual) APTT Heparin Anti-Xa Level ABG pH POC ABG pO2 ABG pO2 ABG HCO3 ABG O2 Saturation ABG Base Excess POC ABG pCO2 ABG Hemoglobin ABG Oxyhemoglobin Oxyhemoglobin Sodium Potassium Chloride Carbon Dioxide BUN Creatinine Glucose POC Glucose 145 H 143 H 124 H Lactic Acid Calcium Phosphorus Magnesium AST ALT Lactate Dehydrogenase CK-MB (CK-2) C-Reactive Protein NT-Pro-B Natriuret Pep Total Protein Albumin Urine WBC (Auto) 11/25/19 11/25/19 11/25/19 00:18 03:18 05:11 WBC 13.7 H RBC Hgb Hct MCHC RDW 17.1 H Lymph % (Auto) 10.8 L Tift % (Auto) 8.7 H Tift # 1.2 H Eos # Tift # (Auto) Eos # (Auto) Seg Neutrophils % 80.2 H Seg Neuts % (Manual) Baso # (Auto) Lymphocytes % (Manual) Monocytes % (Manual) Eosinophils % (Manual) Basophils % (Manual) Seg Neutrophils # 11.0 H Seg Neutrophils # Man Lymphocytes # (Manual) Monocytes # (Manual) Eosinophils # (Manual) Nucleated RBC % Basophils # (Manual) APTT Heparin Anti-Xa Level ABG pH 7.333 L POC ABG pO2 ABG pO2 61.2 L ABG HCO3 ABG O2 Saturation 90.2 L ABG Base Excess POC ABG pCO2 ABG Hemoglobin 13.7 L ABG Oxyhemoglobin Oxyhemoglobin 88.2 L Sodium Potassium Chloride Carbon Dioxide BUN Creatinine Glucose POC Glucose 109 H Lactic Acid Calcium Phosphorus Magnesium AST ALT Lactate Dehydrogenase CK-MB (CK-2) C-Reactive Protein NT-Pro-B Natriuret Pep Total Protein Albumin Urine WBC (Auto) 11/25/19 11/25/19 11/26/19 05:11 11:40 03:12 WBC RBC Hgb Hct MCHC RDW Lymph % (Auto) Tift % (Auto) Tift # Eos # Tift # (Auto) Eos # (Auto) Seg Neutrophils % Seg Neuts % (Manual) Baso # (Auto) Lymphocytes % (Manual) Monocytes % (Manual) Eosinophils % (Manual) Basophils % (Manual) Seg Neutrophils # Seg Neutrophils # Man Lymphocytes # (Manual) Monocytes # (Manual) Eosinophils # (Manual) Nucleated RBC % Basophils # (Manual) APTT Heparin Anti-Xa Level ABG pH POC ABG pO2 ABG pO2 155.1 H ABG HCO3 27.8 H ABG O2 Saturation ABG Base Excess POC ABG pCO2 ABG Hemoglobin 12.2 L ABG Oxyhemoglobin Oxyhemoglobin Sodium Potassium Chloride Carbon Dioxide BUN 23 H Creatinine Glucose 110 H POC Glucose 108 H Lactic Acid Calcium Phosphorus Magnesium AST ALT Lactate Dehydrogenase CK-MB (CK-2) C-Reactive Protein NT-Pro-B Natriuret Pep Total Protein Albumin Urine WBC (Auto) 11/26/19 11/26/19 11/26/19 06:17 10:43 10:43 WBC 11.4 H RBC Hgb Hct MCHC RDW 17.1 H Lymph % (Auto) Tift % (Auto) Tift # Eos # Tift # (Auto) Eos # (Auto) Seg Neutrophils % Seg Neuts % (Manual) Baso # (Auto) Lymphocytes % (Manual) Monocytes % (Manual) Eosinophils % (Manual) Basophils % (Manual) Seg Neutrophils # Seg Neutrophils # Man Lymphocytes # (Manual) Monocytes # (Manual) Eosinophils # (Manual) Nucleated RBC % Basophils # (Manual) APTT Heparin Anti-Xa Level ABG pH POC ABG pO2 ABG pO2 ABG HCO3 ABG O2 Saturation ABG Base Excess POC ABG pCO2 ABG Hemoglobin ABG Oxyhemoglobin Oxyhemoglobin Sodium Potassium Chloride Carbon Dioxide BUN 29 H Creatinine Glucose POC Glucose 107 H Lactic Acid Calcium Phosphorus Magnesium AST ALT Lactate Dehydrogenase CK-MB (CK-2) C-Reactive Protein NT-Pro-B Natriuret Pep Total Protein Albumin Urine WBC (Auto) 11/26/19 11/27/19 11/27/19 17:11 01:53 04:11 WBC RBC Hgb Hct MCHC RDW Lymph % (Auto) Tift % (Auto) Tift # Eos # Tift # (Auto) Eos # (Auto) Seg Neutrophils % Seg Neuts % (Manual) Baso # (Auto) Lymphocytes % (Manual) Monocytes % (Manual) Eosinophils % (Manual) Basophils % (Manual) Seg Neutrophils # Seg Neutrophils # Man Lymphocytes # (Manual) Monocytes # (Manual) Eosinophils # (Manual) Nucleated RBC % Basophils # (Manual) APTT Heparin Anti-Xa Level ABG pH POC ABG pO2 ABG pO2 ABG HCO3 29.2 H ABG O2 Saturation ABG Base Excess 3.4 H POC ABG pCO2 ABG Hemoglobin 13.3 L ABG Oxyhemoglobin Oxyhemoglobin 94.5 L Sodium Potassium Chloride Carbon Dioxide BUN Creatinine Glucose POC Glucose 113 H 108 H Lactic Acid Calcium Phosphorus Magnesium AST ALT Lactate Dehydrogenase CK-MB (CK-2) C-Reactive Protein NT-Pro-B Natriuret Pep Total Protein Albumin Urine WBC (Auto) 11/27/19 11/28/19 11/28/19 05:27 05:00 05:25 WBC RBC Hgb Hct MCHC RDW Lymph % (Auto) Tift % (Auto) Tift # Eos # Tift # (Auto) Eos # (Auto) Seg Neutrophils % Seg Neuts % (Manual) Baso # (Auto) Lymphocytes % (Manual) Monocytes % (Manual) Eosinophils % (Manual) Basophils % (Manual) Seg Neutrophils # Seg Neutrophils # Man Lymphocytes # (Manual) Monocytes # (Manual) Eosinophils # (Manual) Nucleated RBC % Basophils # (Manual) APTT Heparin Anti-Xa Level ABG pH POC ABG pO2 68.1 L ABG pO2 ABG HCO3 ABG O2 Saturation ABG Base Excess POC ABG pCO2 ABG Hemoglobin ABG Oxyhemoglobin 91.2 L Oxyhemoglobin Sodium Potassium Chloride Carbon Dioxide BUN Creatinine Glucose POC Glucose 111 H 110 H Lactic Acid Calcium Phosphorus Magnesium AST ALT Lactate Dehydrogenase CK-MB (CK-2) C-Reactive Protein NT-Pro-B Natriuret Pep Total Protein Albumin Urine WBC (Auto) 11/28/19 11/28/19 11/28/19 12:08 13:47 13:47 WBC 11.3 H RBC Hgb Hct MCHC RDW 16.1 H Lymph % (Auto) Tift % (Auto) 9.9 H Tift # 1.1 H Eos # Tift # (Auto) Eos # (Auto) Seg Neutrophils % 71.4 H Seg Neuts % (Manual) Baso # (Auto) Lymphocytes % (Manual) Monocytes % (Manual) Eosinophils % (Manual) Basophils % (Manual) Seg Neutrophils # 8.1 H Seg Neutrophils # Man Lymphocytes # (Manual) Monocytes # (Manual) Eosinophils # (Manual) Nucleated RBC % Basophils # (Manual) APTT Heparin Anti-Xa Level ABG pH POC ABG pO2 ABG pO2 ABG HCO3 ABG O2 Saturation ABG Base Excess POC ABG pCO2 ABG Hemoglobin ABG Oxyhemoglobin Oxyhemoglobin Sodium Potassium Chloride Carbon Dioxide BUN 23 H Creatinine Glucose 123 H POC Glucose 112 H Lactic Acid Calcium Phosphorus Magnesium AST ALT Lactate Dehydrogenase CK-MB (CK-2) C-Reactive Protein NT-Pro-B Natriuret Pep Total Protein Albumin 3.7 L Urine WBC (Auto) 11/28/19 11/29/19 11/29/19 17:26 03:55 17:04 WBC RBC Hgb Hct MCHC RDW Lymph % (Auto) Tift % (Auto) Tift # Eos # Tift # (Auto) Eos # (Auto) Seg Neutrophils % Seg Neuts % (Manual) Baso # (Auto) Lymphocytes % (Manual) Monocytes % (Manual) Eosinophils % (Manual) Basophils % (Manual) Seg Neutrophils # Seg Neutrophils # Man Lymphocytes # (Manual) Monocytes # (Manual) Eosinophils # (Manual) Nucleated RBC % Basophils # (Manual) APTT Heparin Anti-Xa Level ABG pH POC ABG pO2 ABG pO2 65.7 L ABG HCO3 28.3 H ABG O2 Saturation 93.9 L ABG Base Excess 3.6 H POC ABG pCO2 ABG Hemoglobin 13.3 L ABG Oxyhemoglobin Oxyhemoglobin 91.5 L Sodium Potassium Chloride Carbon Dioxide BUN Creatinine Glucose POC Glucose 123 H 119 H Lactic Acid Calcium Phosphorus Magnesium AST ALT Lactate Dehydrogenase CK-MB (CK-2) C-Reactive Protein NT-Pro-B Natriuret Pep Total Protein Albumin Urine WBC (Auto) 11/30/19 11/30/19 11/30/19 04:17 04:17 04:56 WBC 13.4 H RBC Hgb Hct MCHC RDW 15.6 H Lymph % (Auto) Tift % (Auto) Tift # Eos # Tift # (Auto) Eos # (Auto) Seg Neutrophils % Seg Neuts % (Manual) Baso # (Auto) Lymphocytes % (Manual) Monocytes % (Manual) Eosinophils % (Manual) Basophils % (Manual) Seg Neutrophils # Seg Neutrophils # Man Lymphocytes # (Manual) Monocytes # (Manual) Eosinophils # (Manual) Nucleated RBC % Basophils # (Manual) APTT Heparin Anti-Xa Level ABG pH POC ABG pO2 ABG pO2 56.3 L ABG HCO3 29.3 H ABG O2 Saturation 91.5 L ABG Base Excess 4.7 H POC ABG pCO2 ABG Hemoglobin 12.1 L ABG Oxyhemoglobin Oxyhemoglobin 89.2 L Sodium 147 H Potassium Chloride Carbon Dioxide BUN 30 H Creatinine Glucose 124 H POC Glucose Lactic Acid Calcium Phosphorus Magnesium AST ALT Lactate Dehydrogenase CK-MB (CK-2) C-Reactive Protein NT-Pro-B Natriuret Pep Total Protein Albumin 3.8 L Urine WBC (Auto) 11/30/19 11/30/19 11/30/19 05:51 11:54 18:17 WBC RBC Hgb Hct MCHC RDW Lymph % (Auto) Tift % (Auto) Tift # Eos # Tift # (Auto) Eos # (Auto) Seg Neutrophils % Seg Neuts % (Manual) Baso # (Auto) Lymphocytes % (Manual) Monocytes % (Manual) Eosinophils % (Manual) Basophils % (Manual) Seg Neutrophils # Seg Neutrophils # Man Lymphocytes # (Manual) Monocytes # (Manual) Eosinophils # (Manual) Nucleated RBC % Basophils # (Manual) APTT Heparin Anti-Xa Level ABG pH POC ABG pO2 ABG pO2 ABG HCO3 ABG O2 Saturation ABG Base Excess POC ABG pCO2 ABG Hemoglobin ABG Oxyhemoglobin Oxyhemoglobin Sodium Potassium Chloride Carbon Dioxide BUN Creatinine Glucose POC Glucose 127 H 115 H 143 H Lactic Acid Calcium Phosphorus Magnesium AST ALT Lactate Dehydrogenase CK-MB (CK-2) C-Reactive Protein NT-Pro-B Natriuret Pep Total Protein Albumin Urine WBC (Auto) 12/01/19 12/01/19 12/01/19 01:18 05:22 12:16 WBC RBC Hgb Hct MCHC RDW Lymph % (Auto) Tift % (Auto) Tift # Eos # Tift # (Auto) Eos # (Auto) Seg Neutrophils % Seg Neuts % (Manual) Baso # (Auto) Lymphocytes % (Manual) Monocytes % (Manual) Eosinophils % (Manual) Basophils % (Manual) Seg Neutrophils # Seg Neutrophils # Man Lymphocytes # (Manual) Monocytes # (Manual) Eosinophils # (Manual) Nucleated RBC % Basophils # (Manual) APTT Heparin Anti-Xa Level ABG pH POC ABG pO2 ABG pO2 ABG HCO3 ABG O2 Saturation ABG Base Excess POC ABG pCO2 ABG Hemoglobin ABG Oxyhemoglobin Oxyhemoglobin Sodium Potassium 3.5 L Chloride 107.8 H Carbon Dioxide BUN 37 H Creatinine Glucose 157 H POC Glucose 118 H 148 H Lactic Acid Calcium 8.2 L D Phosphorus Magnesium AST 48 H ALT 60 H Lactate Dehydrogenase 194 H CK-MB (CK-2) C-Reactive Protein 8.50 H NT-Pro-B Natriuret Pep Total Protein 5.5 L Albumin 2.8 L Urine WBC (Auto) 12/01/19 12/02/19 12/02/19 18:04 00:05 05:16 WBC 11.4 H RBC Hgb Hct MCHC RDW 15.9 H Lymph % (Auto) Tift % (Auto) 9.9 H Tift # 1.1 H Eos # Tift # (Auto) Eos # (Auto) Seg Neutrophils % 70.3 H Seg Neuts % (Manual) Baso # (Auto) Lymphocytes % (Manual) Monocytes % (Manual) Eosinophils % (Manual) Basophils % (Manual) Seg Neutrophils # 8.0 H Seg Neutrophils # Man Lymphocytes # (Manual) Monocytes # (Manual) Eosinophils # (Manual) Nucleated RBC % Basophils # (Manual) APTT Heparin Anti-Xa Level ABG pH POC ABG pO2 ABG pO2 ABG HCO3 ABG O2 Saturation ABG Base Excess POC ABG pCO2 ABG Hemoglobin ABG Oxyhemoglobin Oxyhemoglobin Sodium Potassium Chloride Carbon Dioxide BUN Creatinine Glucose POC Glucose 143 H 107 H Lactic Acid Calcium Phosphorus Magnesium AST ALT Lactate Dehydrogenase CK-MB (CK-2) C-Reactive Protein NT-Pro-B Natriuret Pep Total Protein Albumin Urine WBC (Auto) 12/02/19 12/02/19 12/02/19 05:16 06:03 11:52 WBC RBC Hgb Hct MCHC RDW Lymph % (Auto) Tift % (Auto) Tift # Eos # Tift # (Auto) Eos # (Auto) Seg Neutrophils % Seg Neuts % (Manual) Baso # (Auto) Lymphocytes % (Manual) Monocytes % (Manual) Eosinophils % (Manual) Basophils % (Manual) Seg Neutrophils # Seg Neutrophils # Man Lymphocytes # (Manual) Monocytes # (Manual) Eosinophils # (Manual) Nucleated RBC % Basophils # (Manual) APTT Heparin Anti-Xa Level ABG pH POC ABG pO2 ABG pO2 ABG HCO3 ABG O2 Saturation ABG Base Excess POC ABG pCO2 ABG Hemoglobin ABG Oxyhemoglobin Oxyhemoglobin Sodium 146 H Potassium Chloride Carbon Dioxide BUN 28 H Creatinine Glucose 123 H POC Glucose 110 H 152 H Lactic Acid Calcium Phosphorus Magnesium AST ALT Lactate Dehydrogenase CK-MB (CK-2) C-Reactive Protein NT-Pro-B Natriuret Pep Total Protein Albumin Urine WBC (Auto) 12/02/19 12/02/19 12/02/19 12:58 17:58 23:36 WBC RBC Hgb Hct MCHC RDW Lymph % (Auto) Tift % (Auto) Tift # Eos # Tift # (Auto) Eos # (Auto) Seg Neutrophils % Seg Neuts % (Manual) Baso # (Auto) Lymphocytes % (Manual) Monocytes % (Manual) Eosinophils % (Manual) Basophils % (Manual) Seg Neutrophils # Seg Neutrophils # Man Lymphocytes # (Manual) Monocytes # (Manual) Eosinophils # (Manual) Nucleated RBC % Basophils # (Manual) APTT Heparin Anti-Xa Level ABG pH POC ABG pO2 78.1 L ABG pO2 ABG HCO3 ABG O2 Saturation ABG Base Excess POC ABG pCO2 ABG Hemoglobin ABG Oxyhemoglobin Oxyhemoglobin Sodium Potassium Chloride Carbon Dioxide BUN Creatinine Glucose POC Glucose 120 H 123 H Lactic Acid Calcium Phosphorus Magnesium AST ALT Lactate Dehydrogenase CK-MB (CK-2) C-Reactive Protein NT-Pro-B Natriuret Pep Total Protein Albumin Urine WBC (Auto) 12/03/19 12/03/19 12/03/19 06:03 06:14 11:46 WBC RBC Hgb Hct MCHC RDW Lymph % (Auto) Tift % (Auto) Tift # Eos # Tift # (Auto) Eos # (Auto) Seg Neutrophils % Seg Neuts % (Manual) Baso # (Auto) Lymphocytes % (Manual) Monocytes % (Manual) Eosinophils % (Manual) Basophils % (Manual) Seg Neutrophils # Seg Neutrophils # Man Lymphocytes # (Manual) Monocytes # (Manual) Eosinophils # (Manual) Nucleated RBC % Basophils # (Manual) APTT Heparin Anti-Xa Level ABG pH POC ABG pO2 ABG pO2 ABG HCO3 ABG O2 Saturation ABG Base Excess POC ABG pCO2 ABG Hemoglobin ABG Oxyhemoglobin Oxyhemoglobin Sodium Potassium Chloride Carbon Dioxide BUN Creatinine Glucose POC Glucose 142 H 130 H Lactic Acid Calcium Phosphorus Magnesium AST ALT Lactate Dehydrogenase CK-MB (CK-2) C-Reactive Protein NT-Pro-B Natriuret Pep Total Protein Albumin Urine WBC (Auto) 8.0 H 12/03/19 12/03/19 12/04/19 15:50 17:39 00:04 WBC RBC Hgb Hct MCHC RDW Lymph % (Auto) Tift % (Auto) Tift # Eos # Tift # (Auto) Eos # (Auto) Seg Neutrophils % Seg Neuts % (Manual) Baso # (Auto) Lymphocytes % (Manual) Monocytes % (Manual) Eosinophils % (Manual) Basophils % (Manual) Seg Neutrophils # Seg Neutrophils # Man Lymphocytes # (Manual) Monocytes # (Manual) Eosinophils # (Manual) Nucleated RBC % Basophils # (Manual) APTT Heparin Anti-Xa Level ABG pH POC ABG pO2 ABG pO2 ABG HCO3 ABG O2 Saturation ABG Base Excess POC ABG pCO2 ABG Hemoglobin ABG Oxyhemoglobin Oxyhemoglobin Sodium Potassium Chloride Carbon Dioxide BUN Creatinine Glucose POC Glucose 146 H 133 H Lactic Acid Calcium Phosphorus 2.40 L Magnesium AST ALT Lactate Dehydrogenase CK-MB (CK-2) C-Reactive Protein NT-Pro-B Natriuret Pep Total Protein Albumin Urine WBC (Auto) 12/04/19 12/04/19 12/04/19 03:58 03:58 05:22 WBC 12.5 H RBC Hgb 11.2 L Hct 35.2 L MCHC RDW 16.0 H Lymph % (Auto) Tift % (Auto) 9.6 H Tift # 1.2 H Eos # 0.5 H Tift # (Auto) Eos # (Auto) Seg Neutrophils % Seg Neuts % (Manual) Baso # (Auto) Lymphocytes % (Manual) Monocytes % (Manual) Eosinophils % (Manual) Basophils % (Manual) Seg Neutrophils # 8.6 H Seg Neutrophils # Man Lymphocytes # (Manual) Monocytes # (Manual) Eosinophils # (Manual) Nucleated RBC % Basophils # (Manual) APTT Heparin Anti-Xa Level ABG pH POC ABG pO2 ABG pO2 ABG HCO3 ABG O2 Saturation ABG Base Excess POC ABG pCO2 ABG Hemoglobin ABG Oxyhemoglobin Oxyhemoglobin Sodium 146 H Potassium Chloride 108.6 H Carbon Dioxide BUN 30 H Creatinine 0.7 L Glucose 121 H POC Glucose 132 H Lactic Acid Calcium Phosphorus Magnesium AST ALT Lactate Dehydrogenase CK-MB (CK-2) C-Reactive Protein NT-Pro-B Natriuret Pep Total Protein Albumin Urine WBC (Auto) 12/04/19 12/04/19 12/05/19 13:26 18:43 00:19 WBC RBC Hgb Hct MCHC RDW Lymph % (Auto) Tift % (Auto) Tift # Eos # Tift # (Auto) Eos # (Auto) Seg Neutrophils % Seg Neuts % (Manual) Baso # (Auto) Lymphocytes % (Manual) Monocytes % (Manual) Eosinophils % (Manual) Basophils % (Manual) Seg Neutrophils # Seg Neutrophils # Man Lymphocytes # (Manual) Monocytes # (Manual) Eosinophils # (Manual) Nucleated RBC % Basophils # (Manual) APTT Heparin Anti-Xa Level ABG pH POC ABG pO2 ABG pO2 ABG HCO3 ABG O2 Saturation ABG Base Excess POC ABG pCO2 ABG Hemoglobin ABG Oxyhemoglobin Oxyhemoglobin Sodium Potassium Chloride Carbon Dioxide BUN Creatinine Glucose POC Glucose 185 H 156 H 150 H Lactic Acid Calcium Phosphorus Magnesium AST ALT Lactate Dehydrogenase CK-MB (CK-2) C-Reactive Protein NT-Pro-B Natriuret Pep Total Protein Albumin Urine WBC (Auto) 12/05/19 12/05/19 12/05/19 03:37 03:37 05:14 WBC 16.3 H RBC Hgb 11.4 L Hct MCHC RDW 15.6 H Lymph % (Auto) 9.9 L Tift % (Auto) 9.7 H Tift # 1.6 H Eos # Tift # (Auto) Eos # (Auto) Seg Neutrophils % 78.0 H Seg Neuts % (Manual) Baso # (Auto) Lymphocytes % (Manual) Monocytes % (Manual) Eosinophils % (Manual) Basophils % (Manual) Seg Neutrophils # 12.7 H Seg Neutrophils # Man Lymphocytes # (Manual) Monocytes # (Manual) Eosinophils # (Manual) Nucleated RBC % Basophils # (Manual) APTT Heparin Anti-Xa Level ABG pH POC ABG pO2 ABG pO2 ABG HCO3 ABG O2 Saturation ABG Base Excess POC ABG pCO2 ABG Hemoglobin ABG Oxyhemoglobin Oxyhemoglobin Sodium 146 H Potassium Chloride 107.2 H Carbon Dioxide BUN 27 H Creatinine 0.7 L Glucose 171 H POC Glucose 168 H Lactic Acid Calcium Phosphorus Magnesium AST ALT Lactate Dehydrogenase CK-MB (CK-2) C-Reactive Protein NT-Pro-B Natriuret Pep Total Protein Albumin Urine WBC (Auto) 12/05/19 12/05/19 12/05/19 12:31 18:10 23:58 WBC RBC Hgb Hct MCHC RDW Lymph % (Auto) Tift % (Auto) Tift # Eos # Tift # (Auto) Eos # (Auto) Seg Neutrophils % Seg Neuts % (Manual) Baso # (Auto) Lymphocytes % (Manual) Monocytes % (Manual) Eosinophils % (Manual) Basophils % (Manual) Seg Neutrophils # Seg Neutrophils # Man Lymphocytes # (Manual) Monocytes # (Manual) Eosinophils # (Manual) Nucleated RBC % Basophils # (Manual) APTT Heparin Anti-Xa Level ABG pH POC ABG pO2 ABG pO2 ABG HCO3 ABG O2 Saturation ABG Base Excess POC ABG pCO2 ABG Hemoglobin ABG Oxyhemoglobin Oxyhemoglobin Sodium Potassium Chloride Carbon Dioxide BUN Creatinine Glucose POC Glucose 159 H 198 H 115 H Lactic Acid Calcium Phosphorus Magnesium AST ALT Lactate Dehydrogenase CK-MB (CK-2) C-Reactive Protein NT-Pro-B Natriuret Pep Total Protein Albumin Urine WBC (Auto) 12/06/19 12/06/19 12/06/19 05:24 05:24 05:25 WBC 14.9 H RBC Hgb 10.8 L Hct 34.0 L MCHC RDW 15.6 H Lymph % (Auto) 10.7 L Tift % (Auto) 8.3 H Tift # 1.2 H Eos # Tift # (Auto) Eos # (Auto) Seg Neutrophils % 78.7 H Seg Neuts % (Manual) Baso # (Auto) Lymphocytes % (Manual) Monocytes % (Manual) Eosinophils % (Manual) Basophils % (Manual) Seg Neutrophils # 11.7 H Seg Neutrophils # Man Lymphocytes # (Manual) Monocytes # (Manual) Eosinophils # (Manual) Nucleated RBC % Basophils # (Manual) APTT Heparin Anti-Xa Level ABG pH POC ABG pO2 ABG pO2 ABG HCO3 ABG O2 Saturation ABG Base Excess POC ABG pCO2 ABG Hemoglobin ABG Oxyhemoglobin Oxyhemoglobin Sodium 148 H Potassium 5.1 H Chloride 107.6 H Carbon Dioxide BUN 27 H Creatinine 0.7 L Glucose 155 H POC Glucose 157 H Lactic Acid Calcium Phosphorus Magnesium AST ALT Lactate Dehydrogenase CK-MB (CK-2) C-Reactive Protein NT-Pro-B Natriuret Pep Total Protein Albumin Urine WBC (Auto) 12/07/19 12/07/19 12/07/19 00:13 05:34 11:33 WBC RBC Hgb Hct MCHC RDW Lymph % (Auto) Tift % (Auto) Tift # Eos # Tift # (Auto) Eos # (Auto) Seg Neutrophils % Seg Neuts % (Manual) Baso # (Auto) Lymphocytes % (Manual) Monocytes % (Manual) Eosinophils % (Manual) Basophils % (Manual) Seg Neutrophils # Seg Neutrophils # Man Lymphocytes # (Manual) Monocytes # (Manual) Eosinophils # (Manual) Nucleated RBC % Basophils # (Manual) APTT Heparin Anti-Xa Level ABG pH POC ABG pO2 ABG pO2 ABG HCO3 ABG O2 Saturation ABG Base Excess POC ABG pCO2 ABG Hemoglobin ABG Oxyhemoglobin Oxyhemoglobin Sodium Potassium Chloride Carbon Dioxide BUN Creatinine Glucose POC Glucose 142 H 111 H 169 H Lactic Acid Calcium Phosphorus Magnesium AST ALT Lactate Dehydrogenase CK-MB (CK-2) C-Reactive Protein NT-Pro-B Natriuret Pep Total Protein Albumin Urine WBC (Auto) 12/07/19 12/07/19 12/07/19 12:41 13:25 18:19 WBC 12.4 H RBC 3.53 L Hgb 10.2 L Hct 32.1 L MCHC RDW 15.3 H Lymph % (Auto) 10.6 L Tift % (Auto) 7.8 H Tift # 1.0 H Eos # Tift # (Auto) Eos # (Auto) Seg Neutrophils % 77.6 H Seg Neuts % (Manual) Baso # (Auto) Lymphocytes % (Manual) Monocytes % (Manual) Eosinophils % (Manual) Basophils % (Manual) Seg Neutrophils # 9.6 H Seg Neutrophils # Man Lymphocytes # (Manual) Monocytes # (Manual) Eosinophils # (Manual) Nucleated RBC % Basophils # (Manual) APTT Heparin Anti-Xa Level ABG pH POC ABG pO2 ABG pO2 ABG HCO3 ABG O2 Saturation ABG Base Excess POC ABG pCO2 ABG Hemoglobin ABG Oxyhemoglobin Oxyhemoglobin Sodium 149 H Potassium Chloride 108.4 H Carbon Dioxide BUN 26 H Creatinine 0.6 L Glucose 149 H POC Glucose 164 H Lactic Acid Calcium Phosphorus Magnesium 2.60 H AST 121 H ALT 145 H Lactate Dehydrogenase CK-MB (CK-2) C-Reactive Protein NT-Pro-B Natriuret Pep Total Protein Albumin 2.6 L Urine WBC (Auto) 12/07/19 12/08/19 12/08/19 22:25 00:02 03:55 WBC 13.3 H RBC 3.40 L Hgb 9.7 L Hct 30.8 L MCHC 31 L RDW 15.5 H Lymph % (Auto) Tift % (Auto) 8.1 H Tift # 1.1 H Eos # Tift # (Auto) Eos # (Auto) Seg Neutrophils % 73.0 H Seg Neuts % (Manual) Baso # (Auto) Lymphocytes % (Manual) Monocytes % (Manual) Eosinophils % (Manual) Basophils % (Manual) Seg Neutrophils # 9.7 H Seg Neutrophils # Man Lymphocytes # (Manual) Monocytes # (Manual) Eosinophils # (Manual) Nucleated RBC % Basophils # (Manual) APTT Heparin Anti-Xa Level 0.12 L ABG pH POC ABG pO2 ABG pO2 ABG HCO3 ABG O2 Saturation ABG Base Excess POC ABG pCO2 ABG Hemoglobin ABG Oxyhemoglobin Oxyhemoglobin Sodium Potassium Chloride Carbon Dioxide BUN Creatinine Glucose POC Glucose 151 H Lactic Acid Calcium Phosphorus Magnesium AST ALT Lactate Dehydrogenase CK-MB (CK-2) C-Reactive Protein NT-Pro-B Natriuret Pep Total Protein Albumin Urine WBC (Auto) 12/08/19 12/08/19 12/08/19 03:55 05:21 06:01 WBC RBC Hgb Hct MCHC RDW Lymph % (Auto) Tift % (Auto) Tift # Eos # Tift # (Auto) Eos # (Auto) Seg Neutrophils % Seg Neuts % (Manual) Baso # (Auto) Lymphocytes % (Manual) Monocytes % (Manual) Eosinophils % (Manual) Basophils % (Manual) Seg Neutrophils # Seg Neutrophils # Man Lymphocytes # (Manual) Monocytes # (Manual) Eosinophils # (Manual) Nucleated RBC % Basophils # (Manual) APTT Heparin Anti-Xa Level 0.20 L ABG pH POC ABG pO2 ABG pO2 ABG HCO3 ABG O2 Saturation ABG Base Excess POC ABG pCO2 ABG Hemoglobin ABG Oxyhemoglobin Oxyhemoglobin Sodium 149 H Potassium Chloride 108.0 H Carbon Dioxide BUN 28 H Creatinine 0.6 L Glucose 144 H POC Glucose 143 H Lactic Acid Calcium Phosphorus Magnesium AST 98 H ALT 145 H Lactate Dehydrogenase CK-MB (CK-2) C-Reactive Protein NT-Pro-B Natriuret Pep Total Protein 6.0 L Albumin 2.4 L Urine WBC (Auto) 12/08/19 12/08/19 12/08/19 12:08 18:11 23:53 WBC RBC Hgb Hct MCHC RDW Lymph % (Auto) Tift % (Auto) Tift # Eos # Tift # (Auto) Eos # (Auto) Seg Neutrophils % Seg Neuts % (Manual) Baso # (Auto) Lymphocytes % (Manual) Monocytes % (Manual) Eosinophils % (Manual) Basophils % (Manual) Seg Neutrophils # Seg Neutrophils # Man Lymphocytes # (Manual) Monocytes # (Manual) Eosinophils # (Manual) Nucleated RBC % Basophils # (Manual) APTT Heparin Anti-Xa Level ABG pH POC ABG pO2 ABG pO2 ABG HCO3 ABG O2 Saturation ABG Base Excess POC ABG pCO2 ABG Hemoglobin ABG Oxyhemoglobin Oxyhemoglobin Sodium Potassium Chloride Carbon Dioxide BUN Creatinine Glucose POC Glucose 172 H 122 H 162 H Lactic Acid Calcium Phosphorus Magnesium AST ALT Lactate Dehydrogenase CK-MB (CK-2) C-Reactive Protein NT-Pro-B Natriuret Pep Total Protein Albumin Urine WBC (Auto) 12/09/19 12/09/19 12/09/19 04:03 04:03 05:53 WBC RBC Hgb 9.1 L Hct 28.9 L MCHC RDW Lymph % (Auto) Tift % (Auto) Tift # Eos # Tift # (Auto) Eos # (Auto) Seg Neutrophils % Seg Neuts % (Manual) Baso # (Auto) Lymphocytes % (Manual) Monocytes % (Manual) Eosinophils % (Manual) Basophils % (Manual) Seg Neutrophils # Seg Neutrophils # Man Lymphocytes # (Manual) Monocytes # (Manual) Eosinophils # (Manual) Nucleated RBC % Basophils # (Manual) APTT Heparin Anti-Xa Level 0.15 L ABG pH POC ABG pO2 ABG pO2 ABG HCO3 ABG O2 Saturation ABG Base Excess POC ABG pCO2 ABG Hemoglobin ABG Oxyhemoglobin Oxyhemoglobin Sodium Potassium Chloride Carbon Dioxide BUN Creatinine Glucose POC Glucose 124 H Lactic Acid Calcium Phosphorus Magnesium AST ALT Lactate Dehydrogenase CK-MB (CK-2) C-Reactive Protein NT-Pro-B Natriuret Pep Total Protein Albumin Urine WBC (Auto) 12/09/19 12/09/19 12/10/19 09:43 12:41 00:13 WBC RBC Hgb Hct MCHC RDW Lymph % (Auto) Tift % (Auto) Tift # Eos # Tift # (Auto) Eos # (Auto) Seg Neutrophils % Seg Neuts % (Manual) Baso # (Auto) Lymphocytes % (Manual) Monocytes % (Manual) Eosinophils % (Manual) Basophils % (Manual) Seg Neutrophils # Seg Neutrophils # Man Lymphocytes # (Manual) Monocytes # (Manual) Eosinophils # (Manual) Nucleated RBC % Basophils # (Manual) APTT Heparin Anti-Xa Level ABG pH POC ABG pO2 ABG pO2 ABG HCO3 ABG O2 Saturation ABG Base Excess POC ABG pCO2 ABG Hemoglobin ABG Oxyhemoglobin Oxyhemoglobin Sodium Potassium Chloride Carbon Dioxide BUN 25 H Creatinine 0.6 L Glucose 131 H POC Glucose 109 H 120 H Lactic Acid Calcium Phosphorus Magnesium AST ALT Lactate Dehydrogenase CK-MB (CK-2) C-Reactive Protein NT-Pro-B Natriuret Pep Total Protein Albumin Urine WBC (Auto) 12/10/19 12/10/19 12/10/19 04:14 04:14 12:00 WBC 13.3 H RBC 3.34 L Hgb 9.6 L Hct 30.4 L MCHC RDW 15.4 H Lymph % (Auto) Tift % (Auto) Tift # Eos # Tift # (Auto) Eos # (Auto) Seg Neutrophils % Seg Neuts % (Manual) 75.0 H Baso # (Auto) Lymphocytes % (Manual) 13.0 L Monocytes % (Manual) 8.0 H Eosinophils % (Manual) Basophils % (Manual) 2.0 H Seg Neutrophils # Seg Neutrophils # Man 10.0 H Lymphocytes # (Manual) Monocytes # (Manual) 1.1 H Eosinophils # (Manual) Nucleated RBC % Basophils # (Manual) 0.3 H APTT Heparin Anti-Xa Level ABG pH POC ABG pO2 ABG pO2 ABG HCO3 ABG O2 Saturation ABG Base Excess POC ABG pCO2 ABG Hemoglobin ABG Oxyhemoglobin Oxyhemoglobin Sodium 147 H Potassium Chloride 108.3 H Carbon Dioxide BUN 21 H Creatinine 0.6 L Glucose 104 H POC Glucose 133 H Lactic Acid Calcium Phosphorus Magnesium AST ALT Lactate Dehydrogenase CK-MB (CK-2) C-Reactive Protein NT-Pro-B Natriuret Pep Total Protein Albumin Urine WBC (Auto) 12/10/19 12/10/19 12/11/19 18:44 21:20 00:08 WBC 14.9 H RBC 3.36 L Hgb 9.6 L Hct 30.5 L MCHC RDW 15.4 H Lymph % (Auto) Tift % (Auto) Tift # Eos # Tift # (Auto) Eos # (Auto) Seg Neutrophils % Seg Neuts % (Manual) Baso # (Auto) Lymphocytes % (Manual) Monocytes % (Manual) Eosinophils % (Manual) Basophils % (Manual) Seg Neutrophils # Seg Neutrophils # Man Lymphocytes # (Manual) Monocytes # (Manual) Eosinophils # (Manual) Nucleated RBC % Basophils # (Manual) APTT Heparin Anti-Xa Level ABG pH POC ABG pO2 ABG pO2 ABG HCO3 ABG O2 Saturation ABG Base Excess POC ABG pCO2 ABG Hemoglobin ABG Oxyhemoglobin Oxyhemoglobin Sodium Potassium Chloride Carbon Dioxide BUN Creatinine Glucose POC Glucose 119 H 134 H Lactic Acid Calcium Phosphorus Magnesium AST ALT Lactate Dehydrogenase CK-MB (CK-2) C-Reactive Protein NT-Pro-B Natriuret Pep Total Protein Albumin Urine WBC (Auto) 12/11/19 12/11/19 12/11/19 03:54 07:28 08:36 WBC 11.9 H RBC 3.25 L Hgb 9.6 L Hct 29.2 L MCHC RDW 15.7 H Lymph % (Auto) Tift % (Auto) Tift # Eos # Tift # (Auto) Eos # (Auto) Seg Neutrophils % Seg Neuts % (Manual) Baso # (Auto) Lymphocytes % (Manual) Monocytes % (Manual) Eosinophils % (Manual) Basophils % (Manual) Seg Neutrophils # Seg Neutrophils # Man Lymphocytes # (Manual) Monocytes # (Manual) Eosinophils # (Manual) Nucleated RBC % Basophils # (Manual) APTT Heparin Anti-Xa Level 0.10 L 0.16 L ABG pH POC ABG pO2 ABG pO2 ABG HCO3 ABG O2 Saturation ABG Base Excess POC ABG pCO2 ABG Hemoglobin ABG Oxyhemoglobin Oxyhemoglobin Sodium Potassium Chloride Carbon Dioxide BUN Creatinine Glucose POC Glucose Lactic Acid Calcium Phosphorus Magnesium AST ALT Lactate Dehydrogenase CK-MB (CK-2) C-Reactive Protein NT-Pro-B Natriuret Pep Total Protein Albumin Urine WBC (Auto) 12/11/19 12/11/19 12/11/19 08:36 11:45 17:15 WBC RBC Hgb Hct MCHC RDW Lymph % (Auto) Tift % (Auto) Tift # Eos # Tift # (Auto) Eos # (Auto) Seg Neutrophils % Seg Neuts % (Manual) Baso # (Auto) Lymphocytes % (Manual) Monocytes % (Manual) Eosinophils % (Manual) Basophils % (Manual) Seg Neutrophils # Seg Neutrophils # Man Lymphocytes # (Manual) Monocytes # (Manual) Eosinophils # (Manual) Nucleated RBC % Basophils # (Manual) APTT Heparin Anti-Xa Level ABG pH POC ABG pO2 ABG pO2 ABG HCO3 ABG O2 Saturation ABG Base Excess POC ABG pCO2 ABG Hemoglobin ABG Oxyhemoglobin Oxyhemoglobin Sodium Potassium Chloride Carbon Dioxide BUN Creatinine 0.5 L Glucose 128 H POC Glucose 136 H 109 H Lactic Acid Calcium Phosphorus Magnesium AST ALT Lactate Dehydrogenase CK-MB (CK-2) C-Reactive Protein NT-Pro-B Natriuret Pep Total Protein Albumin Urine WBC (Auto) 12/12/19 12/12/19 12/12/19 00:03 05:53 05:53 WBC RBC Hgb 8.8 L Hct 27.6 L MCHC RDW Lymph % (Auto) Tift % (Auto) Tift # Eos # Tift # (Auto) Eos # (Auto) Seg Neutrophils % Seg Neuts % (Manual) Baso # (Auto) Lymphocytes % (Manual) Monocytes % (Manual) Eosinophils % (Manual) Basophils % (Manual) Seg Neutrophils # Seg Neutrophils # Man Lymphocytes # (Manual) Monocytes # (Manual) Eosinophils # (Manual) Nucleated RBC % Basophils # (Manual) APTT Heparin Anti-Xa Level 0.22 L ABG pH POC ABG pO2 ABG pO2 ABG HCO3 ABG O2 Saturation ABG Base Excess POC ABG pCO2 ABG Hemoglobin ABG Oxyhemoglobin Oxyhemoglobin Sodium Potassium Chloride Carbon Dioxide BUN Creatinine Glucose POC Glucose 116 H Lactic Acid Calcium Phosphorus Magnesium AST ALT Lactate Dehydrogenase CK-MB (CK-2) C-Reactive Protein NT-Pro-B Natriuret Pep Total Protein Albumin Urine WBC (Auto) 12/12/19 12/12/19 12/12/19 09:38 12:18 17:44 WBC RBC Hgb Hct MCHC RDW Lymph % (Auto) Tift % (Auto) Tift # Eos # Tift # (Auto) Eos # (Auto) Seg Neutrophils % Seg Neuts % (Manual) Baso # (Auto) Lymphocytes % (Manual) Monocytes % (Manual) Eosinophils % (Manual) Basophils % (Manual) Seg Neutrophils # Seg Neutrophils # Man Lymphocytes # (Manual) Monocytes # (Manual) Eosinophils # (Manual) Nucleated RBC % Basophils # (Manual) APTT Heparin Anti-Xa Level ABG pH POC ABG pO2 ABG pO2 ABG HCO3 ABG O2 Saturation ABG Base Excess POC ABG pCO2 ABG Hemoglobin ABG Oxyhemoglobin Oxyhemoglobin Sodium Potassium Chloride Carbon Dioxide BUN Creatinine Glucose POC Glucose 115 H 146 H 146 H Lactic Acid Calcium Phosphorus Magnesium AST ALT Lactate Dehydrogenase CK-MB (CK-2) C-Reactive Protein NT-Pro-B Natriuret Pep Total Protein Albumin Urine WBC (Auto) 12/12/19 12/13/19 12/13/19 23:33 05:32 05:32 WBC 13.1 H RBC 3.27 L Hgb 9.5 L Hct 29.3 L MCHC RDW 15.6 H Lymph % (Auto) Tift % (Auto) Tift # Eos # Tift # (Auto) Eos # (Auto) Seg Neutrophils % Seg Neuts % (Manual) 74.0 H Baso # (Auto) Lymphocytes % (Manual) 8.0 L Monocytes % (Manual) 9.0 H Eosinophils % (Manual) 5.0 H Basophils % (Manual) Seg Neutrophils # Seg Neutrophils # Man 9.7 H Lymphocytes # (Manual) 1.0 L Monocytes # (Manual) 1.2 H Eosinophils # (Manual) 0.7 H Nucleated RBC % Basophils # (Manual) APTT Heparin Anti-Xa Level 0.20 L ABG pH POC ABG pO2 ABG pO2 ABG HCO3 ABG O2 Saturation ABG Base Excess POC ABG pCO2 ABG Hemoglobin ABG Oxyhemoglobin Oxyhemoglobin Sodium Potassium Chloride Carbon Dioxide BUN Creatinine Glucose POC Glucose 126 H Lactic Acid Calcium Phosphorus Magnesium AST ALT Lactate Dehydrogenase CK-MB (CK-2) C-Reactive Protein NT-Pro-B Natriuret Pep Total Protein Albumin Urine WBC (Auto) 12/13/19 12/13/19 12/13/19 05:32 05:46 11:57 WBC RBC Hgb Hct MCHC RDW Lymph % (Auto) Tift % (Auto) Tift # Eos # Tift # (Auto) Eos # (Auto) Seg Neutrophils % Seg Neuts % (Manual) Baso # (Auto) Lymphocytes % (Manual) Monocytes % (Manual) Eosinophils % (Manual) Basophils % (Manual) Seg Neutrophils # Seg Neutrophils # Man Lymphocytes # (Manual) Monocytes # (Manual) Eosinophils # (Manual) Nucleated RBC % Basophils # (Manual) APTT Heparin Anti-Xa Level ABG pH POC ABG pO2 ABG pO2 ABG HCO3 ABG O2 Saturation ABG Base Excess POC ABG pCO2 ABG Hemoglobin ABG Oxyhemoglobin Oxyhemoglobin Sodium Potassium Chloride Carbon Dioxide 31 H BUN Creatinine 0.6 L Glucose 114 H POC Glucose 118 H 133 H Lactic Acid Calcium Phosphorus Magnesium AST ALT Lactate Dehydrogenase CK-MB (CK-2) C-Reactive Protein NT-Pro-B Natriuret Pep Total Protein Albumin Urine WBC (Auto) 12/13/19 12/13/19 12/14/19 17:44 23:46 05:32 WBC RBC Hgb Hct MCHC RDW Lymph % (Auto) Tift % (Auto) Tift # Eos # Tift # (Auto) Eos # (Auto) Seg Neutrophils % Seg Neuts % (Manual) Baso # (Auto) Lymphocytes % (Manual) Monocytes % (Manual) Eosinophils % (Manual) Basophils % (Manual) Seg Neutrophils # Seg Neutrophils # Man Lymphocytes # (Manual) Monocytes # (Manual) Eosinophils # (Manual) Nucleated RBC % Basophils # (Manual) APTT Heparin Anti-Xa Level ABG pH POC ABG pO2 ABG pO2 ABG HCO3 ABG O2 Saturation ABG Base Excess POC ABG pCO2 ABG Hemoglobin ABG Oxyhemoglobin Oxyhemoglobin Sodium Potassium Chloride Carbon Dioxide BUN Creatinine Glucose POC Glucose 161 H 126 H 139 H Lactic Acid Calcium Phosphorus Magnesium AST ALT Lactate Dehydrogenase CK-MB (CK-2) C-Reactive Protein NT-Pro-B Natriuret Pep Total Protein Albumin Urine WBC (Auto) 12/14/19 12/14/19 12/14/19 06:03 06:03 09:37 WBC RBC Hgb 9.6 L Hct 30.4 L MCHC RDW Lymph % (Auto) Tift % (Auto) Tift # Eos # Tift # (Auto) Eos # (Auto) Seg Neutrophils % Seg Neuts % (Manual) Baso # (Auto) Lymphocytes % (Manual) Monocytes % (Manual) Eosinophils % (Manual) Basophils % (Manual) Seg Neutrophils # Seg Neutrophils # Man Lymphocytes # (Manual) Monocytes # (Manual) Eosinophils # (Manual) Nucleated RBC % Basophils # (Manual) APTT Heparin Anti-Xa Level 0.24 L ABG pH POC ABG pO2 ABG pO2 ABG HCO3 ABG O2 Saturation ABG Base Excess POC ABG pCO2 ABG Hemoglobin ABG Oxyhemoglobin Oxyhemoglobin Sodium Potassium Chloride Carbon Dioxide BUN Creatinine 0.6 L Glucose 162 H POC Glucose Lactic Acid Calcium Phosphorus Magnesium AST 71 H ALT 118 H Lactate Dehydrogenase CK-MB (CK-2) C-Reactive Protein NT-Pro-B Natriuret Pep Total Protein 6.2 L Albumin 2.3 L Urine WBC (Auto) 12/14/19 12/14/19 12/15/19 12:06 18:18 00:19 WBC RBC Hgb Hct MCHC RDW Lymph % (Auto) Tift % (Auto) Tift # Eos # Tift # (Auto) Eos # (Auto) Seg Neutrophils % Seg Neuts % (Manual) Baso # (Auto) Lymphocytes % (Manual) Monocytes % (Manual) Eosinophils % (Manual) Basophils % (Manual) Seg Neutrophils # Seg Neutrophils # Man Lymphocytes # (Manual) Monocytes # (Manual) Eosinophils # (Manual) Nucleated RBC % Basophils # (Manual) APTT Heparin Anti-Xa Level ABG pH POC ABG pO2 ABG pO2 ABG HCO3 ABG O2 Saturation ABG Base Excess POC ABG pCO2 ABG Hemoglobin ABG Oxyhemoglobin Oxyhemoglobin Sodium Potassium Chloride Carbon Dioxide BUN Creatinine Glucose POC Glucose 147 H 166 H 123 H Lactic Acid Calcium Phosphorus Magnesium AST ALT Lactate Dehydrogenase CK-MB (CK-2) C-Reactive Protein NT-Pro-B Natriuret Pep Total Protein Albumin Urine WBC (Auto) 12/15/19 12/15/19 12/15/19 05:28 05:29 05:29 WBC 14.9 H RBC 3.19 L Hgb 9.1 L Hct 28.7 L MCHC RDW 16.0 H Lymph % (Auto) Tift % (Auto) Tift # Eos # Tift # (Auto) Eos # (Auto) Seg Neutrophils % Seg Neuts % (Manual) Baso # (Auto) Lymphocytes % (Manual) Monocytes % (Manual) Eosinophils % (Manual) Basophils % (Manual) Seg Neutrophils # Seg Neutrophils # Man Lymphocytes # (Manual) Monocytes # (Manual) Eosinophils # (Manual) Nucleated RBC % Basophils # (Manual) APTT Heparin Anti-Xa Level 0.19 L ABG pH POC ABG pO2 ABG pO2 ABG HCO3 ABG O2 Saturation ABG Base Excess POC ABG pCO2 ABG Hemoglobin ABG Oxyhemoglobin Oxyhemoglobin Sodium Potassium Chloride Carbon Dioxide BUN Creatinine 0.6 L Glucose 110 H POC Glucose Lactic Acid Calcium Phosphorus Magnesium AST ALT Lactate Dehydrogenase CK-MB (CK-2) C-Reactive Protein NT-Pro-B Natriuret Pep Total Protein Albumin Urine WBC (Auto) 12/15/19 12/15/19 12/15/19 05:53 11:50 17:26 WBC RBC Hgb Hct MCHC RDW Lymph % (Auto) Tift % (Auto) Tift # Eos # Tift # (Auto) Eos # (Auto) Seg Neutrophils % Seg Neuts % (Manual) Baso # (Auto) Lymphocytes % (Manual) Monocytes % (Manual) Eosinophils % (Manual) Basophils % (Manual) Seg Neutrophils # Seg Neutrophils # Man Lymphocytes # (Manual) Monocytes # (Manual) Eosinophils # (Manual) Nucleated RBC % Basophils # (Manual) APTT Heparin Anti-Xa Level ABG pH POC ABG pO2 ABG pO2 ABG HCO3 ABG O2 Saturation ABG Base Excess POC ABG pCO2 ABG Hemoglobin ABG Oxyhemoglobin Oxyhemoglobin Sodium Potassium Chloride Carbon Dioxide BUN Creatinine Glucose POC Glucose 119 H 132 H 128 H Lactic Acid Calcium Phosphorus Magnesium AST ALT Lactate Dehydrogenase CK-MB (CK-2) C-Reactive Protein NT-Pro-B Natriuret Pep Total Protein Albumin Urine WBC (Auto) 12/15/19 12/16/19 12/16/19 23:11 05:30 05:46 WBC RBC Hgb 8.8 L Hct 27.9 L MCHC RDW Lymph % (Auto) Tift % (Auto) Tift # Eos # Tift # (Auto) Eos # (Auto) Seg Neutrophils % Seg Neuts % (Manual) Baso # (Auto) Lymphocytes % (Manual) Monocytes % (Manual) Eosinophils % (Manual) Basophils % (Manual) Seg Neutrophils # Seg Neutrophils # Man Lymphocytes # (Manual) Monocytes # (Manual) Eosinophils # (Manual) Nucleated RBC % Basophils # (Manual) APTT Heparin Anti-Xa Level ABG pH POC ABG pO2 ABG pO2 ABG HCO3 ABG O2 Saturation ABG Base Excess POC ABG pCO2 ABG Hemoglobin ABG Oxyhemoglobin Oxyhemoglobin Sodium Potassium Chloride Carbon Dioxide BUN Creatinine Glucose POC Glucose 150 H 134 H Lactic Acid Calcium Phosphorus Magnesium AST ALT Lactate Dehydrogenase CK-MB (CK-2) C-Reactive Protein NT-Pro-B Natriuret Pep Total Protein Albumin Urine WBC (Auto) 12/16/19 12/16/19 12/16/19 05:46 05:46 11:44 WBC RBC Hgb Hct MCHC RDW Lymph % (Auto) Tift % (Auto) Tift # Eos # Tift # (Auto) Eos # (Auto) Seg Neutrophils % Seg Neuts % (Manual) Baso # (Auto) Lymphocytes % (Manual) Monocytes % (Manual) Eosinophils % (Manual) Basophils % (Manual) Seg Neutrophils # Seg Neutrophils # Man Lymphocytes # (Manual) Monocytes # (Manual) Eosinophils # (Manual) Nucleated RBC % Basophils # (Manual) APTT Heparin Anti-Xa Level 0.20 L ABG pH POC ABG pO2 ABG pO2 ABG HCO3 ABG O2 Saturation ABG Base Excess POC ABG pCO2 ABG Hemoglobin ABG Oxyhemoglobin Oxyhemoglobin Sodium Potassium Chloride Carbon Dioxide 31 H BUN Creatinine 0.5 L Glucose 147 H POC Glucose 164 H Lactic Acid Calcium Phosphorus Magnesium AST ALT Lactate Dehydrogenase CK-MB (CK-2) C-Reactive Protein NT-Pro-B Natriuret Pep Total Protein Albumin Urine WBC (Auto) 12/16/19 12/16/19 12/17/19 17:17 23:49 05:30 WBC 13.9 H RBC 3.27 L Hgb 9.4 L Hct 29.2 L MCHC RDW 16.0 H Lymph % (Auto) Tift % (Auto) 8.8 H Tift # Eos # Tift # (Auto) 1.2 H Eos # (Auto) 0.5 H Seg Neutrophils % 70.5 H Seg Neuts % (Manual) Baso # (Auto) 0.2 H Lymphocytes % (Manual) Monocytes % (Manual) Eosinophils % (Manual) Basophils % (Manual) Seg Neutrophils # 9.8 H Seg Neutrophils # Man Lymphocytes # (Manual) Monocytes # (Manual) Eosinophils # (Manual) Nucleated RBC % Basophils # (Manual) APTT Heparin Anti-Xa Level ABG pH POC ABG pO2 ABG pO2 ABG HCO3 ABG O2 Saturation ABG Base Excess POC ABG pCO2 ABG Hemoglobin ABG Oxyhemoglobin Oxyhemoglobin Sodium Potassium Chloride Carbon Dioxide BUN Creatinine Glucose POC Glucose 162 H 144 H Lactic Acid Calcium Phosphorus Magnesium AST ALT Lactate Dehydrogenase CK-MB (CK-2) C-Reactive Protein NT-Pro-B Natriuret Pep Total Protein Albumin Urine WBC (Auto) 12/17/19 12/17/19 12/17/19 05:30 06:06 11:50 WBC RBC Hgb Hct MCHC RDW Lymph % (Auto) Tift % (Auto) Tift # Eos # Tift # (Auto) Eos # (Auto) Seg Neutrophils % Seg Neuts % (Manual) Baso # (Auto) Lymphocytes % (Manual) Monocytes % (Manual) Eosinophils % (Manual) Basophils % (Manual) Seg Neutrophils # Seg Neutrophils # Man Lymphocytes # (Manual) Monocytes # (Manual) Eosinophils # (Manual) Nucleated RBC % Basophils # (Manual) APTT Heparin Anti-Xa Level ABG pH POC ABG pO2 ABG pO2 ABG HCO3 ABG O2 Saturation ABG Base Excess POC ABG pCO2 ABG Hemoglobin ABG Oxyhemoglobin Oxyhemoglobin Sodium Potassium Chloride 97.4 L Carbon Dioxide 32 H BUN Creatinine 0.5 L Glucose 135 H POC Glucose 151 H 140 H Lactic Acid Calcium Phosphorus Magnesium AST ALT Lactate Dehydrogenase CK-MB (CK-2) C-Reactive Protein NT-Pro-B Natriuret Pep Total Protein Albumin Urine WBC (Auto) 12/17/19 12/17/19 12/18/19 17:50 23:46 05:17 WBC RBC Hgb 8.8 L Hct 28.0 L MCHC RDW Lymph % (Auto) Tift % (Auto) Tift # Eos # Tift # (Auto) Eos # (Auto) Seg Neutrophils % Seg Neuts % (Manual) Baso # (Auto) Lymphocytes % (Manual) Monocytes % (Manual) Eosinophils % (Manual) Basophils % (Manual) Seg Neutrophils # Seg Neutrophils # Man Lymphocytes # (Manual) Monocytes # (Manual) Eosinophils # (Manual) Nucleated RBC % Basophils # (Manual) APTT Heparin Anti-Xa Level ABG pH POC ABG pO2 ABG pO2 ABG HCO3 ABG O2 Saturation ABG Base Excess POC ABG pCO2 ABG Hemoglobin ABG Oxyhemoglobin Oxyhemoglobin Sodium Potassium Chloride Carbon Dioxide BUN Creatinine Glucose POC Glucose 158 H 150 H Lactic Acid Calcium Phosphorus Magnesium AST ALT Lactate Dehydrogenase CK-MB (CK-2) C-Reactive Protein NT-Pro-B Natriuret Pep Total Protein Albumin Urine WBC (Auto) 12/18/19 12/18/19 12/18/19 05:17 05:49 11:12 WBC RBC Hgb Hct MCHC RDW Lymph % (Auto) Tift % (Auto) Tift # Eos # Tift # (Auto) Eos # (Auto) Seg Neutrophils % Seg Neuts % (Manual) Baso # (Auto) Lymphocytes % (Manual) Monocytes % (Manual) Eosinophils % (Manual) Basophils % (Manual) Seg Neutrophils # Seg Neutrophils # Man Lymphocytes # (Manual) Monocytes # (Manual) Eosinophils # (Manual) Nucleated RBC % Basophils # (Manual) APTT Heparin Anti-Xa Level 0.16 L ABG pH POC ABG pO2 ABG pO2 ABG HCO3 ABG O2 Saturation ABG Base Excess POC ABG pCO2 ABG Hemoglobin ABG Oxyhemoglobin Oxyhemoglobin Sodium Potassium Chloride Carbon Dioxide BUN Creatinine Glucose POC Glucose 127 H 191 H Lactic Acid Calcium Phosphorus Magnesium AST ALT Lactate Dehydrogenase CK-MB (CK-2) C-Reactive Protein NT-Pro-B Natriuret Pep Total Protein Albumin Urine WBC (Auto) 12/18/19 12/18/19 12/19/19 17:03 20:16 00:08 WBC RBC Hgb Hct MCHC RDW Lymph % (Auto) Tift % (Auto) Tift # Eos # Tift # (Auto) Eos # (Auto) Seg Neutrophils % Seg Neuts % (Manual) Baso # (Auto) Lymphocytes % (Manual) Monocytes % (Manual) Eosinophils % (Manual) Basophils % (Manual) Seg Neutrophils # Seg Neutrophils # Man Lymphocytes # (Manual) Monocytes # (Manual) Eosinophils # (Manual) Nucleated RBC % Basophils # (Manual) APTT Heparin Anti-Xa Level ABG pH POC ABG pO2 ABG pO2 ABG HCO3 ABG O2 Saturation ABG Base Excess POC ABG pCO2 ABG Hemoglobin ABG Oxyhemoglobin Oxyhemoglobin Sodium Potassium Chloride Carbon Dioxide BUN Creatinine Glucose POC Glucose 133 H 128 H 129 H Lactic Acid Calcium Phosphorus Magnesium AST ALT Lactate Dehydrogenase CK-MB (CK-2) C-Reactive Protein NT-Pro-B Natriuret Pep Total Protein Albumin Urine WBC (Auto) 12/19/19 12/19/19 12/19/19 04:45 04:45 05:35 WBC RBC Hgb Hct MCHC RDW Lymph % (Auto) Tift % (Auto) Tift # Eos # Tift # (Auto) Eos # (Auto) Seg Neutrophils % Seg Neuts % (Manual) Baso # (Auto) Lymphocytes % (Manual) Monocytes % (Manual) Eosinophils % (Manual) Basophils % (Manual) Seg Neutrophils # Seg Neutrophils # Man Lymphocytes # (Manual) Monocytes # (Manual) Eosinophils # (Manual) Nucleated RBC % Basophils # (Manual) APTT Heparin Anti-Xa Level 0.17 L ABG pH POC ABG pO2 ABG pO2 ABG HCO3 ABG O2 Saturation ABG Base Excess POC ABG pCO2 ABG Hemoglobin ABG Oxyhemoglobin Oxyhemoglobin Sodium Potassium Chloride Carbon Dioxide BUN Creatinine Glucose POC Glucose 120 H Lactic Acid Calcium Phosphorus Magnesium AST ALT Lactate Dehydrogenase 228 H CK-MB (CK-2) C-Reactive Protein NT-Pro-B Natriuret Pep Total Protein Albumin Urine WBC (Auto) 12/19/19 12/19/19 12/19/19 09:20 11:32 11:32 WBC 14.6 H RBC 3.08 L Hgb 9.0 L Hct 26.8 L MCHC RDW 15.9 H Lymph % (Auto) Tift % (Auto) Tift # Eos # Tift # (Auto) Eos # (Auto) Seg Neutrophils % Seg Neuts % (Manual) 82.0 H Baso # (Auto) Lymphocytes % (Manual) 10.0 L Monocytes % (Manual) Eosinophils % (Manual) Basophils % (Manual) Seg Neutrophils # Seg Neutrophils # Man 12.0 H Lymphocytes # (Manual) Monocytes # (Manual) 0.9 H Eosinophils # (Manual) Nucleated RBC % 1.0 H Basophils # (Manual) APTT Heparin Anti-Xa Level ABG pH 7.451 H POC ABG pO2 ABG pO2 62.6 L ABG HCO3 33.2 H ABG O2 Saturation 93.8 L ABG Base Excess 8.3 H POC ABG pCO2 ABG Hemoglobin 8.3 L ABG Oxyhemoglobin Oxyhemoglobin 91.9 L Sodium Potassium Chloride 95.0 L Carbon Dioxide 33 H BUN 22 H Creatinine 0.6 L Glucose 150 H POC Glucose Lactic Acid Calcium Phosphorus Magnesium AST ALT Lactate Dehydrogenase CK-MB (CK-2) C-Reactive Protein NT-Pro-B Natriuret Pep Total Protein 6.2 L Albumin 2.4 L Urine WBC (Auto) 12/19/19 12/19/19 12/20/19 11:56 18:17 00:09 WBC RBC Hgb Hct MCHC RDW Lymph % (Auto) Tift % (Auto) Tift # Eos # Tift # (Auto) Eos # (Auto) Seg Neutrophils % Seg Neuts % (Manual) Baso # (Auto) Lymphocytes % (Manual) Monocytes % (Manual) Eosinophils % (Manual) Basophils % (Manual) Seg Neutrophils # Seg Neutrophils # Man Lymphocytes # (Manual) Monocytes # (Manual) Eosinophils # (Manual) Nucleated RBC % Basophils # (Manual) APTT Heparin Anti-Xa Level ABG pH POC ABG pO2 ABG pO2 ABG HCO3 ABG O2 Saturation ABG Base Excess POC ABG pCO2 ABG Hemoglobin ABG Oxyhemoglobin Oxyhemoglobin Sodium Potassium Chloride Carbon Dioxide BUN Creatinine Glucose POC Glucose 156 H 156 H 155 H Lactic Acid Calcium Phosphorus Magnesium AST ALT Lactate Dehydrogenase CK-MB (CK-2) C-Reactive Protein NT-Pro-B Natriuret Pep Total Protein Albumin Urine WBC (Auto) 12/20/19 12/20/19 12/20/19 05:26 06:02 18:17 WBC RBC Hgb Hct MCHC RDW Lymph % (Auto) Tift % (Auto) Tift # Eos # Tift # (Auto) Eos # (Auto) Seg Neutrophils % Seg Neuts % (Manual) Baso # (Auto) Lymphocytes % (Manual) Monocytes % (Manual) Eosinophils % (Manual) Basophils % (Manual) Seg Neutrophils # Seg Neutrophils # Man Lymphocytes # (Manual) Monocytes # (Manual) Eosinophils # (Manual) Nucleated RBC % Basophils # (Manual) APTT Heparin Anti-Xa Level 0.19 L ABG pH POC ABG pO2 ABG pO2 ABG HCO3 ABG O2 Saturation ABG Base Excess POC ABG pCO2 ABG Hemoglobin ABG Oxyhemoglobin Oxyhemoglobin Sodium Potassium Chloride Carbon Dioxide BUN Creatinine Glucose POC Glucose 137 H 128 H Lactic Acid Calcium Phosphorus Magnesium AST ALT Lactate Dehydrogenase CK-MB (CK-2) C-Reactive Protein NT-Pro-B Natriuret Pep Total Protein Albumin Urine WBC (Auto) 12/20/19 12/21/19 12/21/19 23:34 05:31 05:31 WBC 12.7 H RBC 3.09 L Hgb 8.9 L Hct 27.4 L MCHC RDW 15.8 H Lymph % (Auto) 12.1 L Tift % (Auto) 7.8 H Tift # Eos # Tift # (Auto) 1.0 H Eos # (Auto) Seg Neutrophils % 77.1 H Seg Neuts % (Manual) Baso # (Auto) Lymphocytes % (Manual) Monocytes % (Manual) Eosinophils % (Manual) Basophils % (Manual) Seg Neutrophils # 9.8 H Seg Neutrophils # Man Lymphocytes # (Manual) Monocytes # (Manual) Eosinophils # (Manual) Nucleated RBC % Basophils # (Manual) APTT Heparin Anti-Xa Level ABG pH POC ABG pO2 ABG pO2 ABG HCO3 ABG O2 Saturation ABG Base Excess POC ABG pCO2 ABG Hemoglobin ABG Oxyhemoglobin Oxyhemoglobin Sodium Potassium Chloride 96.9 L Carbon Dioxide 37 H BUN 27 H Creatinine 0.7 L Glucose 140 H POC Glucose 145 H Lactic Acid Calcium Phosphorus Magnesium AST ALT Lactate Dehydrogenase CK-MB (CK-2) C-Reactive Protein NT-Pro-B Natriuret Pep Total Protein Albumin Urine WBC (Auto) 12/21/19 12/21/19 12/21/19 05:38 10:13 11:51 WBC RBC Hgb Hct MCHC RDW Lymph % (Auto) Tift % (Auto) Tift # Eos # Tift # (Auto) Eos # (Auto) Seg Neutrophils % Seg Neuts % (Manual) Baso # (Auto) Lymphocytes % (Manual) Monocytes % (Manual) Eosinophils % (Manual) Basophils % (Manual) Seg Neutrophils # Seg Neutrophils # Man Lymphocytes # (Manual) Monocytes # (Manual) Eosinophils # (Manual) Nucleated RBC % Basophils # (Manual) APTT 23.9 L Heparin Anti-Xa Level < 0.10 L ABG pH POC ABG pO2 ABG pO2 ABG HCO3 ABG O2 Saturation ABG Base Excess POC ABG pCO2 ABG Hemoglobin ABG Oxyhemoglobin Oxyhemoglobin Sodium Potassium Chloride Carbon Dioxide BUN Creatinine Glucose POC Glucose 151 H 145 H Lactic Acid Calcium Phosphorus Magnesium AST ALT Lactate Dehydrogenase CK-MB (CK-2) C-Reactive Protein NT-Pro-B Natriuret Pep Total Protein Albumin Urine WBC (Auto) 12/21/19 12/22/19 12/22/19 17:16 00:01 01:33 WBC RBC Hgb Hct MCHC RDW Lymph % (Auto) Tift % (Auto) Tift # Eos # Tift # (Auto) Eos # (Auto) Seg Neutrophils % Seg Neuts % (Manual) Baso # (Auto) Lymphocytes % (Manual) Monocytes % (Manual) Eosinophils % (Manual) Basophils % (Manual) Seg Neutrophils # Seg Neutrophils # Man Lymphocytes # (Manual) Monocytes # (Manual) Eosinophils # (Manual) Nucleated RBC % Basophils # (Manual) APTT Heparin Anti-Xa Level 0.10 L ABG pH POC ABG pO2 ABG pO2 ABG HCO3 ABG O2 Saturation ABG Base Excess POC ABG pCO2 ABG Hemoglobin ABG Oxyhemoglobin Oxyhemoglobin Sodium Potassium Chloride Carbon Dioxide BUN Creatinine Glucose POC Glucose 167 H 179 H Lactic Acid Calcium Phosphorus Magnesium AST ALT Lactate Dehydrogenase CK-MB (CK-2) C-Reactive Protein NT-Pro-B Natriuret Pep Total Protein Albumin Urine WBC (Auto) 12/22/19 12/22/19 12/22/19 03:22 05:10 05:10 WBC 13.8 H RBC 3.20 L Hgb 8.9 L Hct 28.1 L MCHC RDW 15.9 H Lymph % (Auto) Tift % (Auto) Tift # Eos # Tift # (Auto) Eos # (Auto) Seg Neutrophils % Seg Neuts % (Manual) Baso # (Auto) Lymphocytes % (Manual) Monocytes % (Manual) Eosinophils % (Manual) Basophils % (Manual) Seg Neutrophils # Seg Neutrophils # Man Lymphocytes # (Manual) Monocytes # (Manual) Eosinophils # (Manual) Nucleated RBC % Basophils # (Manual) APTT Heparin Anti-Xa Level ABG pH POC ABG pO2 52.3 L ABG pO2 ABG HCO3 ABG O2 Saturation ABG Base Excess POC ABG pCO2 52.9 H ABG Hemoglobin 10.7 L ABG Oxyhemoglobin 84 L Oxyhemoglobin Sodium Potassium Chloride 96.6 L Carbon Dioxide BUN 25 H Creatinine 0.7 L Glucose 129 H POC Glucose Lactic Acid Calcium Phosphorus Magnesium AST ALT Lactate Dehydrogenase CK-MB (CK-2) C-Reactive Protein NT-Pro-B Natriuret Pep Total Protein Albumin Urine WBC (Auto) 12/22/19 12/22/19 12/22/19 05:18 12:32 12:43 WBC RBC Hgb Hct MCHC RDW Lymph % (Auto) Tift % (Auto) Tift # Eos # Tift # (Auto) Eos # (Auto) Seg Neutrophils % Seg Neuts % (Manual) Baso # (Auto) Lymphocytes % (Manual) Monocytes % (Manual) Eosinophils % (Manual) Basophils % (Manual) Seg Neutrophils # Seg Neutrophils # Man Lymphocytes # (Manual) Monocytes # (Manual) Eosinophils # (Manual) Nucleated RBC % Basophils # (Manual) APTT Heparin Anti-Xa Level 0.18 L ABG pH POC ABG pO2 ABG pO2 ABG HCO3 ABG O2 Saturation ABG Base Excess POC ABG pCO2 ABG Hemoglobin ABG Oxyhemoglobin Oxyhemoglobin Sodium Potassium Chloride Carbon Dioxide BUN Creatinine Glucose POC Glucose 131 H 208 H Lactic Acid Calcium Phosphorus Magnesium AST ALT Lactate Dehydrogenase CK-MB (CK-2) C-Reactive Protein NT-Pro-B Natriuret Pep Total Protein Albumin Urine WBC (Auto) 12/22/19 12/22/19 12/23/19 17:44 23:20 03:51 WBC 15.2 H RBC 3.43 L Hgb 9.6 L Hct 30.3 L MCHC RDW 15.9 H Lymph % (Auto) Tift % (Auto) Tift # Eos # Tift # (Auto) Eos # (Auto) Seg Neutrophils % Seg Neuts % (Manual) Baso # (Auto) Lymphocytes % (Manual) Monocytes % (Manual) Eosinophils % (Manual) Basophils % (Manual) Seg Neutrophils # Seg Neutrophils # Man Lymphocytes # (Manual) Monocytes # (Manual) Eosinophils # (Manual) Nucleated RBC % Basophils # (Manual) APTT Heparin Anti-Xa Level ABG pH POC ABG pO2 ABG pO2 ABG HCO3 ABG O2 Saturation ABG Base Excess POC ABG pCO2 ABG Hemoglobin ABG Oxyhemoglobin Oxyhemoglobin Sodium Potassium Chloride Carbon Dioxide BUN Creatinine Glucose POC Glucose 209 H 119 H Lactic Acid Calcium Phosphorus Magnesium AST ALT Lactate Dehydrogenase CK-MB (CK-2) C-Reactive Protein NT-Pro-B Natriuret Pep Total Protein Albumin Urine WBC (Auto) 12/23/19 12/23/19 12/23/19 03:51 05:31 12:09 WBC RBC Hgb Hct MCHC RDW Lymph % (Auto) Tift % (Auto) Tift # Eos # Tift # (Auto) Eos # (Auto) Seg Neutrophils % Seg Neuts % (Manual) Baso # (Auto) Lymphocytes % (Manual) Monocytes % (Manual) Eosinophils % (Manual) Basophils % (Manual) Seg Neutrophils # Seg Neutrophils # Man Lymphocytes # (Manual) Monocytes # (Manual) Eosinophils # (Manual) Nucleated RBC % Basophils # (Manual) APTT Heparin Anti-Xa Level ABG pH POC ABG pO2 ABG pO2 ABG HCO3 ABG O2 Saturation ABG Base Excess POC ABG pCO2 ABG Hemoglobin ABG Oxyhemoglobin Oxyhemoglobin Sodium Potassium Chloride 97.2 L Carbon Dioxide 31 H BUN 23 H Creatinine 0.6 L Glucose 153 H POC Glucose 149 H 144 H Lactic Acid Calcium Phosphorus Magnesium AST ALT Lactate Dehydrogenase CK-MB (CK-2) C-Reactive Protein NT-Pro-B Natriuret Pep Total Protein Albumin Urine WBC (Auto) 12/23/19 12/23/19 12/23/19 15:30 17:49 23:31 WBC RBC Hgb Hct MCHC RDW Lymph % (Auto) Tift % (Auto) Tift # Eos # Tift # (Auto) Eos # (Auto) Seg Neutrophils % Seg Neuts % (Manual) Baso # (Auto) Lymphocytes % (Manual) Monocytes % (Manual) Eosinophils % (Manual) Basophils % (Manual) Seg Neutrophils # Seg Neutrophils # Man Lymphocytes # (Manual) Monocytes # (Manual) Eosinophils # (Manual) Nucleated RBC % Basophils # (Manual) APTT Heparin Anti-Xa Level 0.21 L ABG pH POC ABG pO2 ABG pO2 ABG HCO3 ABG O2 Saturation ABG Base Excess POC ABG pCO2 ABG Hemoglobin ABG Oxyhemoglobin Oxyhemoglobin Sodium Potassium Chloride Carbon Dioxide BUN Creatinine Glucose POC Glucose 192 H 151 H Lactic Acid Calcium Phosphorus Magnesium AST ALT Lactate Dehydrogenase CK-MB (CK-2) C-Reactive Protein NT-Pro-B Natriuret Pep Total Protein Albumin Urine WBC (Auto) 12/24/19 12/24/19 12/24/19 05:34 12:13 16:50 WBC RBC Hgb Hct MCHC RDW Lymph % (Auto) Tift % (Auto) Tift # Eos # Tift # (Auto) Eos # (Auto) Seg Neutrophils % Seg Neuts % (Manual) Baso # (Auto) Lymphocytes % (Manual) Monocytes % (Manual) Eosinophils % (Manual) Basophils % (Manual) Seg Neutrophils # Seg Neutrophils # Man Lymphocytes # (Manual) Monocytes # (Manual) Eosinophils # (Manual) Nucleated RBC % Basophils # (Manual) APTT Heparin Anti-Xa Level 0.16 L ABG pH POC ABG pO2 ABG pO2 ABG HCO3 ABG O2 Saturation ABG Base Excess POC ABG pCO2 ABG Hemoglobin ABG Oxyhemoglobin Oxyhemoglobin Sodium Potassium Chloride Carbon Dioxide BUN Creatinine Glucose POC Glucose 145 H 124 H Lactic Acid Calcium Phosphorus Magnesium AST ALT Lactate Dehydrogenase CK-MB (CK-2) C-Reactive Protein NT-Pro-B Natriuret Pep Total Protein Albumin Urine WBC (Auto) 12/24/19 12/25/19 12/25/19 17:53 00:14 04:18 WBC 12.9 H RBC 3.30 L Hgb 9.1 L Hct 28.8 L MCHC RDW 16.4 H Lymph % (Auto) Tift % (Auto) 7.8 H Tift # Eos # Tift # (Auto) 1.0 H Eos # (Auto) Seg Neutrophils % 75.5 H Seg Neuts % (Manual) Baso # (Auto) Lymphocytes % (Manual) Monocytes % (Manual) Eosinophils % (Manual) Basophils % (Manual) Seg Neutrophils # 9.7 H Seg Neutrophils # Man Lymphocytes # (Manual) Monocytes # (Manual) Eosinophils # (Manual) Nucleated RBC % Basophils # (Manual) APTT Heparin Anti-Xa Level ABG pH POC ABG pO2 ABG pO2 ABG HCO3 ABG O2 Saturation ABG Base Excess POC ABG pCO2 ABG Hemoglobin ABG Oxyhemoglobin Oxyhemoglobin Sodium Potassium Chloride Carbon Dioxide BUN Creatinine Glucose POC Glucose 164 H 148 H Lactic Acid Calcium Phosphorus Magnesium AST ALT Lactate Dehydrogenase CK-MB (CK-2) C-Reactive Protein NT-Pro-B Natriuret Pep Total Protein Albumin Urine WBC (Auto) 12/25/19 12/25/19 12/25/19 04:18 05:38 11:44 WBC RBC Hgb Hct MCHC RDW Lymph % (Auto) Tift % (Auto) Tift # Eos # Tift # (Auto) Eos # (Auto) Seg Neutrophils % Seg Neuts % (Manual) Baso # (Auto) Lymphocytes % (Manual) Monocytes % (Manual) Eosinophils % (Manual) Basophils % (Manual) Seg Neutrophils # Seg Neutrophils # Man Lymphocytes # (Manual) Monocytes # (Manual) Eosinophils # (Manual) Nucleated RBC % Basophils # (Manual) APTT Heparin Anti-Xa Level ABG pH POC ABG pO2 ABG pO2 ABG HCO3 ABG O2 Saturation ABG Base Excess POC ABG pCO2 ABG Hemoglobin ABG Oxyhemoglobin Oxyhemoglobin Sodium Potassium Chloride Carbon Dioxide 33 H BUN 27 H Creatinine 0.6 L Glucose 132 H POC Glucose 152 H 166 H Lactic Acid Calcium Phosphorus Magnesium AST ALT Lactate Dehydrogenase CK-MB (CK-2) C-Reactive Protein NT-Pro-B Natriuret Pep Total Protein Albumin Urine WBC (Auto) 12/25/19 12/26/19 12/26/19 18:29 00:17 00:18 WBC RBC Hgb Hct MCHC RDW Lymph % (Auto) Tift % (Auto) Tift # Eos # Tift # (Auto) Eos # (Auto) Seg Neutrophils % Seg Neuts % (Manual) Baso # (Auto) Lymphocytes % (Manual) Monocytes % (Manual) Eosinophils % (Manual) Basophils % (Manual) Seg Neutrophils # Seg Neutrophils # Man Lymphocytes # (Manual) Monocytes # (Manual) Eosinophils # (Manual) Nucleated RBC % Basophils # (Manual) APTT Heparin Anti-Xa Level ABG pH POC ABG pO2 ABG pO2 ABG HCO3 ABG O2 Saturation ABG Base Excess POC ABG pCO2 ABG Hemoglobin ABG Oxyhemoglobin Oxyhemoglobin Sodium Potassium Chloride 97.8 L Carbon Dioxide BUN 25 H Creatinine 0.6 L Glucose 140 H POC Glucose 194 H 151 H Lactic Acid Calcium Phosphorus Magnesium AST ALT Lactate Dehydrogenase CK-MB (CK-2) C-Reactive Protein NT-Pro-B Natriuret Pep Total Protein Albumin Urine WBC (Auto) 12/26/19 12/26/19 12/26/19 05:36 11:41 17:50 WBC RBC Hgb Hct MCHC RDW Lymph % (Auto) Tift % (Auto) Tift # Eos # Tift # (Auto) Eos # (Auto) Seg Neutrophils % Seg Neuts % (Manual) Baso # (Auto) Lymphocytes % (Manual) Monocytes % (Manual) Eosinophils % (Manual) Basophils % (Manual) Seg Neutrophils # Seg Neutrophils # Man Lymphocytes # (Manual) Monocytes # (Manual) Eosinophils # (Manual) Nucleated RBC % Basophils # (Manual) APTT Heparin Anti-Xa Level ABG pH POC ABG pO2 ABG pO2 ABG HCO3 ABG O2 Saturation ABG Base Excess POC ABG pCO2 ABG Hemoglobin ABG Oxyhemoglobin Oxyhemoglobin Sodium Potassium Chloride Carbon Dioxide BUN Creatinine Glucose POC Glucose 156 H 148 H 139 H Lactic Acid Calcium Phosphorus Magnesium AST ALT Lactate Dehydrogenase CK-MB (CK-2) C-Reactive Protein NT-Pro-B Natriuret Pep Total Protein Albumin Urine WBC (Auto) 12/26/19 12/27/19 12/27/19 23:19 05:34 12:02 WBC RBC Hgb Hct MCHC RDW Lymph % (Auto) Tift % (Auto) Tift # Eos # Tift # (Auto) Eos # (Auto) Seg Neutrophils % Seg Neuts % (Manual) Baso # (Auto) Lymphocytes % (Manual) Monocytes % (Manual) Eosinophils % (Manual) Basophils % (Manual) Seg Neutrophils # Seg Neutrophils # Man Lymphocytes # (Manual) Monocytes # (Manual) Eosinophils # (Manual) Nucleated RBC % Basophils # (Manual) APTT Heparin Anti-Xa Level ABG pH POC ABG pO2 ABG pO2 ABG HCO3 ABG O2 Saturation ABG Base Excess POC ABG pCO2 ABG Hemoglobin ABG Oxyhemoglobin Oxyhemoglobin Sodium Potassium Chloride Carbon Dioxide BUN Creatinine Glucose POC Glucose 161 H 145 H 157 H Lactic Acid Calcium Phosphorus Magnesium AST ALT Lactate Dehydrogenase CK-MB (CK-2) C-Reactive Protein NT-Pro-B Natriuret Pep Total Protein Albumin Urine WBC (Auto) Chest x-ray: other (none today) Allied health notes reviewed: nursing
[2019-12-27] MEDS: POLYETHYLENE GLYCOL 3350 17 GM POWDER PO SCH (21:57)
[2019-12-27] MEDS: TAMSULOSIN 0.4 MG CAP PO SCH (21:58)
[2019-12-28] MEDS: HEPARIN/ 0.45% NACL DRIP 25,000 UNIT/500 ML BAG IV SCH ×2 (00:30→15:58)
[2019-12-28] MEDS: INSULIN LISPRO 100 UNIT/ML VIAL 3 mL SUB-Q SCH ×4 (01:00→19:00)
[2019-12-28] MEDS: LORazepam 2 MG/ML VIAL IV PRN ×2 (03:00→08:04)
[2019-12-28 03:09] LABS: Basophils # (Auto) 0.1 K/mm3 (0.0-0.1); Basophils % (Auto) 0.9 % (0.0-1.8); Eosinophils # (Auto) 0.2 K/mm3 (0.0-0.4); Eosinophils % (Auto) 1.8 % (0.0-4.3); Hematocrit 30.6 % (35.5-45.6); Hemoglobin 9.5 gm/dl (11.8-15.2); Lymphocytes # (Auto) 1.7 K/mm3 (1.2-5.4); Mean Corpuscular HGB Conc 31 % (32-34); Mean Corpuscular Volume 88 fl (84-94); Platelet Count 264 K/mm3 (140-440); Red Blood Count 3.48 M/mm3 (3.65-5.03); Red Cell Distribution Width 16.6 % (13.2-15.2)
[2019-12-28 03:17] LABS: Blood Urea Nitrogen 22 mg/dL (9-20); Calcium 9.3 mg/dL (8.4-10.2); Hemolysis Index 9
[2019-12-28 03:18] LABS: BUN/Creatinine Ratio 37
[2019-12-28] MEDS: METOPROLOL TARTRATE 50 MG TAB PO SCH ×3 (06:50→21:44)
[2019-12-28] MEDS ORDERED: FUROSEMIDE 40 MG/4 ML INJ IV ONE (10:00)
--- NOTE | 2019-12-28 10:04 | Progress Note ---
<KACEY HICKEY - Last Filed: 12/28/19 10:02> Assessment and Plan Transient Afib after CPAP trial currently in sinus rhythm Ischemic Cardiomyopathy, resolving re-echo this presentation reports an LVEF 40-45%. echo 08/2018: decreased LVEF 20-25%. Hx of CAD [facility] 12/2018: mild in-stent restenosis. No significant residual disease. Multifocal pneumonia negative COVID-19 test x 2 Respiratory failure Acute PE/DVT on IV heparin Recommendations: Continue amiodarone and metoprolol for suppression of paroxysmal atrial fibrillation. Otherwise, conservative cardiac management. We will follow intermittently. Subjective Date of service: 12/28/19 Principal diagnosis: Ac hypoxemic resp failure; Pneumonia; PUI COVID-19; CHF; COPD; HTN Interval history: Remains intubated on the vent. Stable sinus rhythm on telemetry. Objective Vital Signs Temp Pulse Pulse Resp BP Pulse Ox 12/28/19 09:00 94 H 24 107/54 91 12/28/19 08:09 118 H 154/106 94 12/28/19 08:01 128 H 29 H 154/106 96 12/28/19 08:00 97.8 F 85 85 21 92 12/28/19 07:00 88 20 115/64 94 12/28/19 06:50 74 100/59 12/28/19 06:00 91 H 22 105/67 95 12/28/19 05:00 82 21 105/64 12/28/19 04:00 99.1 F 74 85 21 100/59 92 12/28/19 03:45 73 106/72 93 12/28/19 03:00 94 H 22 106/72 93 12/28/19 02:00 90 22 99/71 90 12/28/19 01:01 98 H 25 H 131/85 95 12/28/19 00:00 99.0 F 85 85 22 103/77 97 12/27/19 23:38 83 74/40 97 12/27/19 23:01 86 22 74/40 100 12/27/19 22:07 82 21 115/80 93 12/27/19 22:00 87 24 123/81 94 12/27/19 21:59 84 115/80 12/27/19 21:00 85 19 115/80 12/27/19 20:01 108 H 27 H 148/91 85 12/27/19 20:00 98.9 F 108 H 108 H 27 H 94 12/27/19 19:00 102 H 26 H 112/82 91 12/27/19 18:57 108 H 112/82 95 12/27/19 18:00 84 22 112/82 92 12/27/19 17:00 97 H 22 107/80 92 12/27/19 16:17 101 H 118/85 94 12/27/19 16:00 98.0 F 99 H 23 118/85 86 12/27/19 15:00 98 H 27 H 127/90 85 12/27/19 14:00 100 H 25 H 117/79 12/27/19 13:11 92 H 118/76 12/27/19 13:00 90 21 118/76 90 12/27/19 12:00 97.8 F 94 H 21 117/79 12/27/19 11:51 89 116/78 94 12/27/19 11:00 98 H 21 116/78 90 - Physical Examination General: Other (intubated on the vent) Cardiac: Positive: Reg Rate and Rhythm - Labs and Meds CBC 12/28/19 Range/Units 02:41 WBC 13.0 H (4.5-11.0) K/mm3 RBC 3.48 L (3.65-5.03) M/mm3 Hgb 9.5 L (11.8-15.2) gm/dl Hct 30.6 L (35.5-45.6) % Plt Count 264 (140-440) K/mm3 Lymph # (Auto) 1.7 (1.2-5.4) K/mm3 Bladen # (Auto) 1.0 H (0.0-0.8) K/mm3 Eos # (Auto) 0.2 (0.0-0.4) K/mm3 Baso # (Auto) 0.1 (0.0-0.1) K/mm3 Comprehensive Metabolic Panel 12/28/19 Range/Units 02:41 Sodium 141 (137-145) mmol/L Potassium 4.6 D (3.6-5.0) mmol/L Chloride 98.0 (98-107) mmol/L Carbon Dioxide 27 (22-30) mmol/L BUN 22 H (9-20) mg/dL Creatinine 0.6 L (0.8-1.3) mg/dL Glucose 101 H (75-100) mg/dL Calcium 9.3 (8.4-10.2) mg/dL - Allied health notes Allied health notes reviewed: nursing <PETRONA SHAHID - Last Filed: 12/28/19 20:45> Assessment and Plan - Patient Problems (1) Acute respiratory failure Current Visit: Yes Status: Acute (2) Bilateral pneumonia Current Visit: Yes Status: Acute (3) COPD exacerbation Current Visit: No Status: Acute (4) Hypertension Current Visit: No Status: Acute Qualifiers: Hypertension type: essential hypertension Qualified Code(s): I10 - Essential (primary) hypertension (5) Cardiomyopathy Current Visit: Yes Status: Acute (6) Paroxysmal atrial fibrillation Current Visit: Yes Status: Acute Subjective Interval history: I SAW THIS PT & AGREE WITH THE Dx & Tx PLAN Objective Vital Signs Temp Pulse Pulse Resp BP Pulse Ox 12/28/19 20:07 91 H 20 113/78 97 12/28/19 19:55 97.7 F 12/28/19 18:00 93 H 22 118/80 12/28/19 17:00 97 H 24 115/87 91 12/28/19 16:55 101 H 25 H 101/57 96 12/28/19 16:01 95 H 24 101/57 96 12/28/19 16:00 97.5 F L 97 H 85 21 92 12/28/19 15:58 97 H 107/66 12/28/19 15:00 83 22 107/66 12/28/19 14:00 81 21 102/63 12/28/19 13:00 88 23 111/70 96 12/28/19 12:22 97 H 22 110/76 96 12/28/19 12:00 98.2 F 83 85 18 109/69 91 12/28/19 11:00 97 H 24 110/76 96 12/28/19 10:35 93 H 95/64 96 12/28/19 10:00 88 19 95/64 92 12/28/19 09:00 94 H 24 107/54 91 12/28/19 08:09 118 H 154/106 94 12/28/19 08:01 128 H 29 H 154/106 96 12/28/19 08:00 97.8 F 85 85 21 92 12/28/19 07:00 88 20 115/64 94 12/28/19 06:50 74 100/59 12/28/19 06:00 91 H 22 105/67 95 12/28/19 05:00 82 21 105/64 12/28/19 04:00 99.1 F 74 85 21 100/59 92 12/28/19 03:45 73 106/72 93 12/28/19 03:00 94 H 22 106/72 93 12/28/19 02:00 90 22 99/71 90 12/28/19 01:01 98 H 25 H 131/85 95 12/28/19 00:00 99.0 F 85 85 22 103/77 97 12/27/19 23:38 83 74/40 97 12/27/19 23:01 86 22 74/40 100 12/27/19 22:07 82 21 115/80 93 12/27/19 22:00 87 24 123/81 94 12/27/19 21:59 84 115/80 12/27/19 21:00 85 19 115/80 - Labs and Meds CBC 12/28/19 Range/Units 02:41 WBC 13.0 H (4.5-11.0) K/mm3 RBC 3.48 L (3.65-5.03) M/mm3 Hgb 9.5 L (11.8-15.2) gm/dl Hct 30.6 L (35.5-45.6) % Plt Count 264 (140-440) K/mm3 Lymph # (Auto) 1.7 (1.2-5.4) K/mm3 Bladen # (Auto) 1.0 H (0.0-0.8) K/mm3 Eos # (Auto) 0.2 (0.0-0.4) K/mm3 Baso # (Auto) 0.1 (0.0-0.1) K/mm3 Comprehensive Metabolic Panel 12/28/19 Range/Units 02:41 Sodium 141 (137-145) mmol/L Potassium 4.6 D (3.6-5.0) mmol/L Chloride 98.0 (98-107) mmol/L Carbon Dioxide 27 (22-30) mmol/L BUN 22 H (9-20) mg/dL Creatinine 0.6 L (0.8-1.3) mg/dL Glucose 101 H (75-100) mg/dL Calcium 9.3 (8.4-10.2) mg/dL
[2019-12-28] MEDS: FAMOTIDINE 20 MG TAB PO SCH ×2 (10:28→21:43)
[2019-12-28] MEDS: AMIODARONE 200 MG TAB PO SCH ×2 (10:28→21:43)
[2019-12-28] MEDS: DOCUSATE SODIUM 100 MG/10 ML ORAL LIQD FEEDTUBE SCH ×2 (10:28→21:42)
[2019-12-28] MEDS: fentaNYL 25 MCG/HR PATCH 72HR TD SCH (10:29)
[2019-12-28] MEDS: QUEtiapine 200 MG TAB PO SCH ×2 (10:29→21:43)
--- NOTE | 2019-12-28 10:56 | Progress Note ---
Assessment and Plan Acute hypoxemic respiratory failure Bilateral pneumonia, community acquired. Acute congestive heart failure exacerbation. History of cerebrovascular accident. Acute chronic obstructive pulmonary disease exacerbation. Hypertension and hypertensive urgency at presentation. History of arthritis. Oropharyngeal dysphagia Right Lext DVT Pulmonary embolism SBTs as tolerated Bowel regimen Monitor off antibiotics, trend WCC and temperature curve Gentle diuretics as tolerated by renal function and hemodynamics Discussed with General Surgeon, plan for trach and PEG once COVID is negative. Continue with daily PSV as tolerated. If he tolerates it and meets weaning criteria prior to trach, will liberate from MVS - continue to monitor renal function, hemodynamics and electrolyte profile - continue to wean oxygen for O2 sats > 90% - continue bronchodilators with pulmonary hygiene per RT - VAP bundle addressed (Aspiration precautions, HOB >40) - continue to wean per pulmonary driven protocols - continue prn analgesia per CPOT score - follow clinically re: fever curves / trend WBC - Avoid delirium (no benzodiazepines if they can be avoided) - Enteral nutrition at goal rate as tolerated - continue accuchecks with glycemic control per SSI for target blood glucose goal of 140-180 mg/dL while critically ill; Avoid hypoglycemia - continue VTE prophylaxis with Heparin therapeutic dosing for PE/DVT - continue stress ulcer prophylaxis with Famotidine BID - continue mobility protocols for pressure ulcer prophylaxis - continue fall precautions - Supportive transfusions as indicated to keep HgB>7g/dL - Continue to monitor neurologic function - Continue chronic home medications as clinically indicated - Continue all supportive care CONDITION: CRITICAL PROGNOSIS: GUARDED CODE STATUS: FULL CODE The high probability of a clinically significant, sudden or life threatening deterioration of the [Respiratory, cardiovascular & neurological] system(s) required my full and direct attention, intervention and personal management. The aggregate critical care time was [33] minutes without overlap. Time includes spent on [x] Data Review and interpretation [x] Patient assessment and monitoring of vital signs [x] Documentation [x] Medication orders and management Subjective Date of service: 12/28/19 Principal diagnosis: Ac hypoxemic resp failure; Pneumonia; PUI COVID-19; CHF; COPD; HTN Interval history: Patient is seen today for: Acute hypoxemic respiratory failure; Adan. Pneumonia (CAP); PUI COVID-19 infection; AE-CHF; AE-COPD; H/O CVA; HTN; PE, DVT Seen and examined at bedside; 24 hour events reviewed; nursing and respiratory care staff consulted; no adverse overnight events reported to me; resting peacefully in bed; ETT in place. No asynchrony, No episodes of vomiting s/p Cefepime Vent 500/12/8/40%. Objective Vital Signs - 12hr 12/27/19 12/27/19 12/28/19 23:01 23:38 00:00 Temperature 99.0 F Pulse Rate 86 83 85 Pulse Rate [ 85 From Monitor] Respiratory 22 22 Rate Blood Pressure 74/40 74/40 103/77 O2 Sat by Pulse 100 97 97 Oximetry 12/28/19 12/28/19 12/28/19 01:01 02:00 03:00 Temperature Pulse Rate 98 H 90 94 H Pulse Rate [ From Monitor] Respiratory 25 H 22 22 Rate Blood Pressure 131/85 99/71 106/72 O2 Sat by Pulse 95 90 93 Oximetry 12/28/19 12/28/19 12/28/19 03:45 04:00 05:00 Temperature 99.1 F Pulse Rate 73 74 82 Pulse Rate [ 85 From Monitor] Respiratory 21 21 Rate Blood Pressure 106/72 100/59 105/64 O2 Sat by Pulse 93 92 Oximetry 12/28/19 12/28/19 12/28/19 06:00 06:50 07:00 Temperature Pulse Rate 91 H 74 88 Pulse Rate [ From Monitor] Respiratory 22 20 Rate Blood Pressure 105/67 100/59 115/64 O2 Sat by Pulse 95 94 Oximetry 12/28/19 12/28/19 12/28/19 08:00 08:01 08:09 Temperature 97.8 F Pulse Rate 85 128 H 118 H Pulse Rate [ 85 From Monitor] Respiratory 21 29 H Rate Blood Pressure 154/106 154/106 O2 Sat by Pulse 92 96 94 Oximetry 12/28/19 12/28/19 12/28/19 09:00 10:00 10:35 Temperature Pulse Rate 94 H 88 93 H Pulse Rate [ From Monitor] Respiratory 24 19 Rate Blood Pressure 107/54 95/64 95/64 O2 Sat by Pulse 91 92 96 Oximetry Constitutional: no acute distress, agitated, other (elderly and obese male, normocephalic with mildly increased respiratory effort at rest on MVS) Eyes: non-icteric ENT: oropharynx moist, other (ETT 24 cm JASON) Neck: supple, no JVD Effort: mildly labored Ascultation: Bilateral: clear, diminished breath sounds (bases R>L), rhonchi Percussion: Bilateral: not dull Cardiovascular: irregular rhythm Gastrointestinal: normoactive bowel sounds, soft, non-tender, non-distended Integumentary: normal Extremities: no cyanosis, pulses normal, no ischemia or petechiae, edema (bilateral upper ) Neurologic: non-focal exam (moves all extremities with extreme agitation), pupils equal and round, motor strength normal and, other (sedated lightly) Psychiatric: other (unable to assess re: AMS) CBC and BMP: 12/28/19 02:41 12/28/19 02:41 ABG, PT/INR, D-dimer: ABG ABG pH 7.418 (7.320-7.450) 12/22/19 03:22 POC ABG pCO2 52.9 mmHg (32.0-48.0) H 12/22/19 03:22 ABG pCO2 48.7 mm Hg 12/19/19 09:20 POC ABG pO2 52.3 mmHg (83-108) L 12/22/19 03:22 ABG pO2 62.6 mm Hg (80.0-90.0) L 12/19/19 09:20 POC ABG HCO3 33.4 12/22/19 03:22 ABG O2 Saturation 93.8 % (95.0-99.0) L 12/19/19 09:20 PT/INR, D-dimer PT 13.8 Sec. (12.2-14.9) 12/21/19 10:13 INR 1.05 (0.87-1.13) 12/21/19 10:13 Abnormal lab findings: Abnormal Labs 11/24/19 11/24/19 11/24/19 02:53 02:53 03:45 WBC 14.3 H RBC Hgb Hct MCHC RDW 17.2 H MCH Lymph % (Auto) [place] % (Auto) [place] # Eos # [place] # (Auto) Eos # (Auto) Seg Neutrophils % Seg Neuts % (Manual) Baso # (Auto) Lymphocytes % (Manual) Monocytes % (Manual) Eosinophils % (Manual) Basophils % (Manual) Seg Neutrophils # Seg Neutrophils # Man 8.3 H Lymphocytes # (Manual) Monocytes # (Manual) 0.9 H Eosinophils # (Manual) Nucleated RBC % Basophils # (Manual) APTT Heparin Anti-Xa Level ABG pH 7.313 L POC ABG pO2 ABG pO2 102.8 H ABG HCO3 ABG O2 Saturation ABG Base Excess -2.9 L POC ABG pCO2 ABG Hemoglobin ABG Oxyhemoglobin Oxyhemoglobin 93.9 L Sodium Potassium Chloride Carbon Dioxide BUN Creatinine Glucose 195 H POC Glucose Lactic Acid Calcium Phosphorus Magnesium AST ALT Lactate Dehydrogenase CK-MB (CK-2) 4.3 H C-Reactive Protein NT-Pro-B Natriuret Pep 1181 H Total Protein Albumin Urine WBC (Auto) 11/24/19 11/24/19 11/24/19 04:53 04:53 10:37 WBC RBC Hgb Hct MCHC RDW MCH Lymph % (Auto) [place] % (Auto) [place] # Eos # [place] # (Auto) Eos # (Auto) Seg Neutrophils % Seg Neuts % (Manual) Baso # (Auto) Lymphocytes % (Manual) Monocytes % (Manual) Eosinophils % (Manual) Basophils % (Manual) Seg Neutrophils # Seg Neutrophils # Man Lymphocytes # (Manual) Monocytes # (Manual) Eosinophils # (Manual) Nucleated RBC % Basophils # (Manual) APTT Heparin Anti-Xa Level ABG pH POC ABG pO2 ABG pO2 ABG HCO3 ABG O2 Saturation ABG Base Excess POC ABG pCO2 ABG Hemoglobin ABG Oxyhemoglobin Oxyhemoglobin Sodium Potassium Chloride Carbon Dioxide BUN Creatinine Glucose 162 H POC Glucose Lactic Acid 2.40 H* 2.50 H* Calcium Phosphorus Magnesium AST ALT Lactate Dehydrogenase 240 H CK-MB (CK-2) C-Reactive Protein NT-Pro-B Natriuret Pep Total Protein Albumin Urine WBC (Auto) 11/24/19 11/24/19 11/24/19 12:21 14:50 19:54 WBC RBC Hgb Hct MCHC RDW MCH Lymph % (Auto) [place] % (Auto) [place] # Eos # [place] # (Auto) Eos # (Auto) Seg Neutrophils % Seg Neuts % (Manual) Baso # (Auto) Lymphocytes % (Manual) Monocytes % (Manual) Eosinophils % (Manual) Basophils % (Manual) Seg Neutrophils # Seg Neutrophils # Man Lymphocytes # (Manual) Monocytes # (Manual) Eosinophils # (Manual) Nucleated RBC % Basophils # (Manual) APTT Heparin Anti-Xa Level ABG pH POC ABG pO2 ABG pO2 ABG HCO3 ABG O2 Saturation ABG Base Excess POC ABG pCO2 ABG Hemoglobin ABG Oxyhemoglobin Oxyhemoglobin Sodium Potassium Chloride Carbon Dioxide BUN Creatinine Glucose POC Glucose 145 H 143 H 124 H Lactic Acid Calcium Phosphorus Magnesium AST ALT Lactate Dehydrogenase CK-MB (CK-2) C-Reactive Protein NT-Pro-B Natriuret Pep Total Protein Albumin Urine WBC (Auto) 11/25/19 11/25/19 11/25/19 00:18 03:18 05:11 WBC 13.7 H RBC Hgb Hct MCHC RDW 17.1 H MCH Lymph % (Auto) 10.8 L [place] % (Auto) 8.7 H [place] # 1.2 H Eos # [place] # (Auto) Eos # (Auto) Seg Neutrophils % 80.2 H Seg Neuts % (Manual) Baso # (Auto) Lymphocytes % (Manual) Monocytes % (Manual) Eosinophils % (Manual) Basophils % (Manual) Seg Neutrophils # 11.0 H Seg Neutrophils # Man Lymphocytes # (Manual) Monocytes # (Manual) Eosinophils # (Manual) Nucleated RBC % Basophils # (Manual) APTT Heparin Anti-Xa Level ABG pH 7.333 L POC ABG pO2 ABG pO2 61.2 L ABG HCO3 ABG O2 Saturation 90.2 L ABG Base Excess POC ABG pCO2 ABG Hemoglobin 13.7 L ABG Oxyhemoglobin Oxyhemoglobin 88.2 L Sodium Potassium Chloride Carbon Dioxide BUN Creatinine Glucose POC Glucose 109 H Lactic Acid Calcium Phosphorus Magnesium AST ALT Lactate Dehydrogenase CK-MB (CK-2) C-Reactive Protein NT-Pro-B Natriuret Pep Total Protein Albumin Urine WBC (Auto) 11/25/19 11/25/19 11/26/19 05:11 11:40 03:12 WBC RBC Hgb Hct MCHC RDW MCH Lymph % (Auto) [place] % (Auto) [place] # Eos # [place] # (Auto) Eos # (Auto) Seg Neutrophils % Seg Neuts % (Manual) Baso # (Auto) Lymphocytes % (Manual) Monocytes % (Manual) Eosinophils % (Manual) Basophils % (Manual) Seg Neutrophils # Seg Neutrophils # Man Lymphocytes # (Manual) Monocytes # (Manual) Eosinophils # (Manual) Nucleated RBC % Basophils # (Manual) APTT Heparin Anti-Xa Level ABG pH POC ABG pO2 ABG pO2 155.1 H ABG HCO3 27.8 H ABG O2 Saturation ABG Base Excess POC ABG pCO2 ABG Hemoglobin 12.2 L ABG Oxyhemoglobin Oxyhemoglobin Sodium Potassium Chloride Carbon Dioxide BUN 23 H Creatinine Glucose 110 H POC Glucose 108 H Lactic Acid Calcium Phosphorus Magnesium AST ALT Lactate Dehydrogenase CK-MB (CK-2) C-Reactive Protein NT-Pro-B Natriuret Pep Total Protein Albumin Urine WBC (Auto) 11/26/19 11/26/19 11/26/19 06:17 10:43 10:43 WBC 11.4 H RBC Hgb Hct MCHC RDW 17.1 H MCH Lymph % (Auto) [place] % (Auto) [place] # Eos # [place] # (Auto) Eos # (Auto) Seg Neutrophils % Seg Neuts % (Manual) Baso # (Auto) Lymphocytes % (Manual) Monocytes % (Manual) Eosinophils % (Manual) Basophils % (Manual) Seg Neutrophils # Seg Neutrophils # Man Lymphocytes # (Manual) Monocytes # (Manual) Eosinophils # (Manual) Nucleated RBC % Basophils # (Manual) APTT Heparin Anti-Xa Level ABG pH POC ABG pO2 ABG pO2 ABG HCO3 ABG O2 Saturation ABG Base Excess POC ABG pCO2 ABG Hemoglobin ABG Oxyhemoglobin Oxyhemoglobin Sodium Potassium Chloride Carbon Dioxide BUN 29 H Creatinine Glucose POC Glucose 107 H Lactic Acid Calcium Phosphorus Magnesium AST ALT Lactate Dehydrogenase CK-MB (CK-2) C-Reactive Protein NT-Pro-B Natriuret Pep Total Protein Albumin Urine WBC (Auto) 11/26/19 11/27/19 11/27/19 17:11 01:53 04:11 WBC RBC Hgb Hct MCHC RDW MCH Lymph % (Auto) [place] % (Auto) [place] # Eos # [place] # (Auto) Eos # (Auto) Seg Neutrophils % Seg Neuts % (Manual) Baso # (Auto) Lymphocytes % (Manual) Monocytes % (Manual) Eosinophils % (Manual) Basophils % (Manual) Seg Neutrophils # Seg Neutrophils # Man Lymphocytes # (Manual) Monocytes # (Manual) Eosinophils # (Manual) Nucleated RBC % Basophils # (Manual) APTT Heparin Anti-Xa Level ABG pH POC ABG pO2 ABG pO2 ABG HCO3 29.2 H ABG O2 Saturation ABG Base Excess 3.4 H POC ABG pCO2 ABG Hemoglobin 13.3 L ABG Oxyhemoglobin Oxyhemoglobin 94.5 L Sodium Potassium Chloride Carbon Dioxide BUN Creatinine Glucose POC Glucose 113 H 108 H Lactic Acid Calcium Phosphorus Magnesium AST ALT Lactate Dehydrogenase CK-MB (CK-2) C-Reactive Protein NT-Pro-B Natriuret Pep Total Protein Albumin Urine WBC (Auto) 11/27/19 11/28/19 11/28/19 05:27 05:00 05:25 WBC RBC Hgb Hct MCHC RDW MCH Lymph % (Auto) [place] % (Auto) [place] # Eos # [place] # (Auto) Eos # (Auto) Seg Neutrophils % Seg Neuts % (Manual) Baso # (Auto) Lymphocytes % (Manual) Monocytes % (Manual) Eosinophils % (Manual) Basophils % (Manual) Seg Neutrophils # Seg Neutrophils # Man Lymphocytes # (Manual) Monocytes # (Manual) Eosinophils # (Manual) Nucleated RBC % Basophils # (Manual) APTT Heparin Anti-Xa Level ABG pH POC ABG pO2 68.1 L ABG pO2 ABG HCO3 ABG O2 Saturation ABG Base Excess POC ABG pCO2 ABG Hemoglobin ABG Oxyhemoglobin 91.2 L Oxyhemoglobin Sodium Potassium Chloride Carbon Dioxide BUN Creatinine Glucose POC Glucose 111 H 110 H Lactic Acid Calcium Phosphorus Magnesium AST ALT Lactate Dehydrogenase CK-MB (CK-2) C-Reactive Protein NT-Pro-B Natriuret Pep Total Protein Albumin Urine WBC (Auto) 11/28/19 11/28/19 11/28/19 12:08 13:47 13:47 WBC 11.3 H RBC Hgb Hct MCHC RDW 16.1 H MCH Lymph % (Auto) [place] % (Auto) 9.9 H [place] # 1.1 H Eos # [place] # (Auto) Eos # (Auto) Seg Neutrophils % 71.4 H Seg Neuts % (Manual) Baso # (Auto) Lymphocytes % (Manual) Monocytes % (Manual) Eosinophils % (Manual) Basophils % (Manual) Seg Neutrophils # 8.1 H Seg Neutrophils # Man Lymphocytes # (Manual) Monocytes # (Manual) Eosinophils # (Manual) Nucleated RBC % Basophils # (Manual) APTT Heparin Anti-Xa Level ABG pH POC ABG pO2 ABG pO2 ABG HCO3 ABG O2 Saturation ABG Base Excess POC ABG pCO2 ABG Hemoglobin ABG Oxyhemoglobin Oxyhemoglobin Sodium Potassium Chloride Carbon Dioxide BUN 23 H Creatinine Glucose 123 H POC Glucose 112 H Lactic Acid Calcium Phosphorus Magnesium AST ALT Lactate Dehydrogenase CK-MB (CK-2) C-Reactive Protein NT-Pro-B Natriuret Pep Total Protein Albumin 3.7 L Urine WBC (Auto) 11/28/19 11/29/19 11/29/19 17:26 03:55 17:04 WBC RBC Hgb Hct MCHC RDW MCH Lymph % (Auto) [place] % (Auto) [place] # Eos # [place] # (Auto) Eos # (Auto) Seg Neutrophils % Seg Neuts % (Manual) Baso # (Auto) Lymphocytes % (Manual) Monocytes % (Manual) Eosinophils % (Manual) Basophils % (Manual) Seg Neutrophils # Seg Neutrophils # Man Lymphocytes # (Manual) Monocytes # (Manual) Eosinophils # (Manual) Nucleated RBC % Basophils # (Manual) APTT Heparin Anti-Xa Level ABG pH POC ABG pO2 ABG pO2 65.7 L ABG HCO3 28.3 H ABG O2 Saturation 93.9 L ABG Base Excess 3.6 H POC ABG pCO2 ABG Hemoglobin 13.3 L ABG Oxyhemoglobin Oxyhemoglobin 91.5 L Sodium Potassium Chloride Carbon Dioxide BUN Creatinine Glucose POC Glucose 123 H 119 H Lactic Acid Calcium Phosphorus Magnesium AST ALT Lactate Dehydrogenase CK-MB (CK-2) C-Reactive Protein NT-Pro-B Natriuret Pep Total Protein Albumin Urine WBC (Auto) 11/30/19 11/30/19 11/30/19 04:17 04:17 04:56 WBC 13.4 H RBC Hgb Hct MCHC RDW 15.6 H MCH Lymph % (Auto) [place] % (Auto) [place] # Eos # [place] # (Auto) Eos # (Auto) Seg Neutrophils % Seg Neuts % (Manual) Baso # (Auto) Lymphocytes % (Manual) Monocytes % (Manual) Eosinophils % (Manual) Basophils % (Manual) Seg Neutrophils # Seg Neutrophils # Man Lymphocytes # (Manual) Monocytes # (Manual) Eosinophils # (Manual) Nucleated RBC % Basophils # (Manual) APTT Heparin Anti-Xa Level ABG pH POC ABG pO2 ABG pO2 56.3 L ABG HCO3 29.3 H ABG O2 Saturation 91.5 L ABG Base Excess 4.7 H POC ABG pCO2 ABG Hemoglobin 12.1 L ABG Oxyhemoglobin Oxyhemoglobin 89.2 L Sodium 147 H Potassium Chloride Carbon Dioxide BUN 30 H Creatinine Glucose 124 H POC Glucose Lactic Acid Calcium Phosphorus Magnesium AST ALT Lactate Dehydrogenase CK-MB (CK-2) C-Reactive Protein NT-Pro-B Natriuret Pep Total Protein Albumin 3.8 L Urine WBC (Auto) 11/30/19 11/30/19 11/30/19 05:51 11:54 18:17 WBC RBC Hgb Hct MCHC RDW MCH Lymph % (Auto) [place] % (Auto) [place] # Eos # [place] # (Auto) Eos # (Auto) Seg Neutrophils % Seg Neuts % (Manual) Baso # (Auto) Lymphocytes % (Manual) Monocytes % (Manual) Eosinophils % (Manual) Basophils % (Manual) Seg Neutrophils # Seg Neutrophils # Man Lymphocytes # (Manual) Monocytes # (Manual) Eosinophils # (Manual) Nucleated RBC % Basophils # (Manual) APTT Heparin Anti-Xa Level ABG pH POC ABG pO2 ABG pO2 ABG HCO3 ABG O2 Saturation ABG Base Excess POC ABG pCO2 ABG Hemoglobin ABG Oxyhemoglobin Oxyhemoglobin Sodium Potassium Chloride Carbon Dioxide BUN Creatinine Glucose POC Glucose 127 H 115 H 143 H Lactic Acid Calcium Phosphorus Magnesium AST ALT Lactate Dehydrogenase CK-MB (CK-2) C-Reactive Protein NT-Pro-B Natriuret Pep Total Protein Albumin Urine WBC (Auto) 12/01/19 12/01/19 12/01/19 01:18 05:22 12:16 WBC RBC Hgb Hct MCHC RDW MCH Lymph % (Auto) [place] % (Auto) [place] # Eos # [place] # (Auto) Eos # (Auto) Seg Neutrophils % Seg Neuts % (Manual) Baso # (Auto) Lymphocytes % (Manual) Monocytes % (Manual) Eosinophils % (Manual) Basophils % (Manual) Seg Neutrophils # Seg Neutrophils # Man Lymphocytes # (Manual) Monocytes # (Manual) Eosinophils # (Manual) Nucleated RBC % Basophils # (Manual) APTT Heparin Anti-Xa Level ABG pH POC ABG pO2 ABG pO2 ABG HCO3 ABG O2 Saturation ABG Base Excess POC ABG pCO2 ABG Hemoglobin ABG Oxyhemoglobin Oxyhemoglobin Sodium Potassium 3.5 L Chloride 107.8 H Carbon Dioxide BUN 37 H Creatinine Glucose 157 H POC Glucose 118 H 148 H Lactic Acid Calcium 8.2 L D Phosphorus Magnesium AST 48 H ALT 60 H Lactate Dehydrogenase 194 H CK-MB (CK-2) C-Reactive Protein 8.50 H NT-Pro-B Natriuret Pep Total Protein 5.5 L Albumin 2.8 L Urine WBC (Auto) 12/01/19 12/02/19 12/02/19 18:04 00:05 05:16 WBC 11.4 H RBC Hgb Hct MCHC RDW 15.9 H MCH Lymph % (Auto) [place] % (Auto) 9.9 H [place] # 1.1 H Eos # [place] # (Auto) Eos # (Auto) Seg Neutrophils % 70.3 H Seg Neuts % (Manual) Baso # (Auto) Lymphocytes % (Manual) Monocytes % (Manual) Eosinophils % (Manual) Basophils % (Manual) Seg Neutrophils # 8.0 H Seg Neutrophils # Man Lymphocytes # (Manual) Monocytes # (Manual) Eosinophils # (Manual) Nucleated RBC % Basophils # (Manual) APTT Heparin Anti-Xa Level ABG pH POC ABG pO2 ABG pO2 ABG HCO3 ABG O2 Saturation ABG Base Excess POC ABG pCO2 ABG Hemoglobin ABG Oxyhemoglobin Oxyhemoglobin Sodium Potassium Chloride Carbon Dioxide BUN Creatinine Glucose POC Glucose 143 H 107 H Lactic Acid Calcium Phosphorus Magnesium AST ALT Lactate Dehydrogenase CK-MB (CK-2) C-Reactive Protein NT-Pro-B Natriuret Pep Total Protein Albumin Urine WBC (Auto) 12/02/19 12/02/19 12/02/19 05:16 06:03 11:52 WBC RBC Hgb Hct MCHC RDW MCH Lymph % (Auto) [place] % (Auto) [place] # Eos # [place] # (Auto) Eos # (Auto) Seg Neutrophils % Seg Neuts % (Manual) Baso # (Auto) Lymphocytes % (Manual) Monocytes % (Manual) Eosinophils % (Manual) Basophils % (Manual) Seg Neutrophils # Seg Neutrophils # Man Lymphocytes # (Manual) Monocytes # (Manual) Eosinophils # (Manual) Nucleated RBC % Basophils # (Manual) APTT Heparin Anti-Xa Level ABG pH POC ABG pO2 ABG pO2 ABG HCO3 ABG O2 Saturation ABG Base Excess POC ABG pCO2 ABG Hemoglobin ABG Oxyhemoglobin Oxyhemoglobin Sodium 146 H Potassium Chloride Carbon Dioxide BUN 28 H Creatinine Glucose 123 H POC Glucose 110 H 152 H Lactic Acid Calcium Phosphorus Magnesium AST ALT Lactate Dehydrogenase CK-MB (CK-2) C-Reactive Protein NT-Pro-B Natriuret Pep Total Protein Albumin Urine WBC (Auto) 12/02/19 12/02/19 12/02/19 12:58 17:58 23:36 WBC RBC Hgb Hct MCHC RDW MCH Lymph % (Auto) [place] % (Auto) [place] # Eos # [place] # (Auto) Eos # (Auto) Seg Neutrophils % Seg Neuts % (Manual) Baso # (Auto) Lymphocytes % (Manual) Monocytes % (Manual) Eosinophils % (Manual) Basophils % (Manual) Seg Neutrophils # Seg Neutrophils # Man Lymphocytes # (Manual) Monocytes # (Manual) Eosinophils # (Manual) Nucleated RBC % Basophils # (Manual) APTT Heparin Anti-Xa Level ABG pH POC ABG pO2 78.1 L ABG pO2 ABG HCO3 ABG O2 Saturation ABG Base Excess POC ABG pCO2 ABG Hemoglobin ABG Oxyhemoglobin Oxyhemoglobin Sodium Potassium Chloride Carbon Dioxide BUN Creatinine Glucose POC Glucose 120 H 123 H Lactic Acid Calcium Phosphorus Magnesium AST ALT Lactate Dehydrogenase CK-MB (CK-2) C-Reactive Protein NT-Pro-B Natriuret Pep Total Protein Albumin Urine WBC (Auto) 12/03/19 12/03/19 12/03/19 06:03 06:14 11:46 WBC RBC Hgb Hct MCHC RDW MCH Lymph % (Auto) [place] % (Auto) [place] # Eos # [place] # (Auto) Eos # (Auto) Seg Neutrophils % Seg Neuts % (Manual) Baso # (Auto) Lymphocytes % (Manual) Monocytes % (Manual) Eosinophils % (Manual) Basophils % (Manual) Seg Neutrophils # Seg Neutrophils # Man Lymphocytes # (Manual) Monocytes # (Manual) Eosinophils # (Manual) Nucleated RBC % Basophils # (Manual) APTT Heparin Anti-Xa Level ABG pH POC ABG pO2 ABG pO2 ABG HCO3 ABG O2 Saturation ABG Base Excess POC ABG pCO2 ABG Hemoglobin ABG Oxyhemoglobin Oxyhemoglobin Sodium Potassium Chloride Carbon Dioxide BUN Creatinine Glucose POC Glucose 142 H 130 H Lactic Acid Calcium Phosphorus Magnesium AST ALT Lactate Dehydrogenase CK-MB (CK-2) C-Reactive Protein NT-Pro-B Natriuret Pep Total Protein Albumin Urine WBC (Auto) 8.0 H 12/03/19 12/03/19 12/04/19 15:50 17:39 00:04 WBC RBC Hgb Hct MCHC RDW MCH Lymph % (Auto) [place] % (Auto) [place] # Eos # [place] # (Auto) Eos # (Auto) Seg Neutrophils % Seg Neuts % (Manual) Baso # (Auto) Lymphocytes % (Manual) Monocytes % (Manual) Eosinophils % (Manual) Basophils % (Manual) Seg Neutrophils # Seg Neutrophils # Man Lymphocytes # (Manual) Monocytes # (Manual) Eosinophils # (Manual) Nucleated RBC % Basophils # (Manual) APTT Heparin Anti-Xa Level ABG pH POC ABG pO2 ABG pO2 ABG HCO3 ABG O2 Saturation ABG Base Excess POC ABG pCO2 ABG Hemoglobin ABG Oxyhemoglobin Oxyhemoglobin Sodium Potassium Chloride Carbon Dioxide BUN Creatinine Glucose POC Glucose 146 H 133 H Lactic Acid Calcium Phosphorus 2.40 L Magnesium AST ALT Lactate Dehydrogenase CK-MB (CK-2) C-Reactive Protein NT-Pro-B Natriuret Pep Total Protein Albumin Urine WBC (Auto) 12/04/19 12/04/19 12/04/19 03:58 03:58 05:22 WBC 12.5 H RBC Hgb 11.2 L Hct 35.2 L MCHC RDW 16.0 H MCH Lymph % (Auto) [place] % (Auto) 9.6 H [place] # 1.2 H Eos # 0.5 H [place] # (Auto) Eos # (Auto) Seg Neutrophils % Seg Neuts % (Manual) Baso # (Auto) Lymphocytes % (Manual) Monocytes % (Manual) Eosinophils % (Manual) Basophils % (Manual) Seg Neutrophils # 8.6 H Seg Neutrophils # Man Lymphocytes # (Manual) Monocytes # (Manual) Eosinophils # (Manual) Nucleated RBC % Basophils # (Manual) APTT Heparin Anti-Xa Level ABG pH POC ABG pO2 ABG pO2 ABG HCO3 ABG O2 Saturation ABG Base Excess POC ABG pCO2 ABG Hemoglobin ABG Oxyhemoglobin Oxyhemoglobin Sodium 146 H Potassium Chloride 108.6 H Carbon Dioxide BUN 30 H Creatinine 0.7 L Glucose 121 H POC Glucose 132 H Lactic Acid Calcium Phosphorus Magnesium AST ALT Lactate Dehydrogenase CK-MB (CK-2) C-Reactive Protein NT-Pro-B Natriuret Pep Total Protein Albumin Urine WBC (Auto) 12/04/19 12/04/19 12/05/19 13:26 18:43 00:19 WBC RBC Hgb Hct MCHC RDW MCH Lymph % (Auto) [place] % (Auto) [place] # Eos # [place] # (Auto) Eos # (Auto) Seg Neutrophils % Seg Neuts % (Manual) Baso # (Auto) Lymphocytes % (Manual) Monocytes % (Manual) Eosinophils % (Manual) Basophils % (Manual) Seg Neutrophils # Seg Neutrophils # Man Lymphocytes # (Manual) Monocytes # (Manual) Eosinophils # (Manual) Nucleated RBC % Basophils # (Manual) APTT Heparin Anti-Xa Level ABG pH POC ABG pO2 ABG pO2 ABG HCO3 ABG O2 Saturation ABG Base Excess POC ABG pCO2 ABG Hemoglobin ABG Oxyhemoglobin Oxyhemoglobin Sodium Potassium Chloride Carbon Dioxide BUN Creatinine Glucose POC Glucose 185 H 156 H 150 H Lactic Acid Calcium Phosphorus Magnesium AST ALT Lactate Dehydrogenase CK-MB (CK-2) C-Reactive Protein NT-Pro-B Natriuret Pep Total Protein Albumin Urine WBC (Auto) 12/05/19 12/05/19 12/05/19 03:37 03:37 05:14 WBC 16.3 H RBC Hgb 11.4 L Hct MCHC RDW 15.6 H MCH Lymph % (Auto) 9.9 L [place] % (Auto) 9.7 H [place] # 1.6 H Eos # [place] # (Auto) Eos # (Auto) Seg Neutrophils % 78.0 H Seg Neuts % (Manual) Baso # (Auto) Lymphocytes % (Manual) Monocytes % (Manual) Eosinophils % (Manual) Basophils % (Manual) Seg Neutrophils # 12.7 H Seg Neutrophils # Man Lymphocytes # (Manual) Monocytes # (Manual) Eosinophils # (Manual) Nucleated RBC % Basophils # (Manual) APTT Heparin Anti-Xa Level ABG pH POC ABG pO2 ABG pO2 ABG HCO3 ABG O2 Saturation ABG Base Excess POC ABG pCO2 ABG Hemoglobin ABG Oxyhemoglobin Oxyhemoglobin Sodium 146 H Potassium Chloride 107.2 H Carbon Dioxide BUN 27 H Creatinine 0.7 L Glucose 171 H POC Glucose 168 H Lactic Acid Calcium Phosphorus Magnesium AST ALT Lactate Dehydrogenase CK-MB (CK-2) C-Reactive Protein NT-Pro-B Natriuret Pep Total Protein Albumin Urine WBC (Auto) 12/05/19 12/05/19 12/05/19 12:31 18:10 23:58 WBC RBC Hgb Hct MCHC RDW MCH Lymph % (Auto) [place] % (Auto) [place] # Eos # [place] # (Auto) Eos # (Auto) Seg Neutrophils % Seg Neuts % (Manual) Baso # (Auto) Lymphocytes % (Manual) Monocytes % (Manual) Eosinophils % (Manual) Basophils % (Manual) Seg Neutrophils # Seg Neutrophils # Man Lymphocytes # (Manual) Monocytes # (Manual) Eosinophils # (Manual) Nucleated RBC % Basophils # (Manual) APTT Heparin Anti-Xa Level ABG pH POC ABG pO2 ABG pO2 ABG HCO3 ABG O2 Saturation ABG Base Excess POC ABG pCO2 ABG Hemoglobin ABG Oxyhemoglobin Oxyhemoglobin Sodium Potassium Chloride Carbon Dioxide BUN Creatinine Glucose POC Glucose 159 H 198 H 115 H Lactic Acid Calcium Phosphorus Magnesium AST ALT Lactate Dehydrogenase CK-MB (CK-2) C-Reactive Protein NT-Pro-B Natriuret Pep Total Protein Albumin Urine WBC (Auto) 12/06/19 12/06/19 12/06/19 05:24 05:24 05:25 WBC 14.9 H RBC Hgb 10.8 L Hct 34.0 L MCHC RDW 15.6 H MCH Lymph % (Auto) 10.7 L [place] % (Auto) 8.3 H [place] # 1.2 H Eos # [place] # (Auto) Eos # (Auto) Seg Neutrophils % 78.7 H Seg Neuts % (Manual) Baso # (Auto) Lymphocytes % (Manual) Monocytes % (Manual) Eosinophils % (Manual) Basophils % (Manual) Seg Neutrophils # 11.7 H Seg Neutrophils # Man Lymphocytes # (Manual) Monocytes # (Manual) Eosinophils # (Manual) Nucleated RBC % Basophils # (Manual) APTT Heparin Anti-Xa Level ABG pH POC ABG pO2 ABG pO2 ABG HCO3 ABG O2 Saturation ABG Base Excess POC ABG pCO2 ABG Hemoglobin ABG Oxyhemoglobin Oxyhemoglobin Sodium 148 H Potassium 5.1 H Chloride 107.6 H Carbon Dioxide BUN 27 H Creatinine 0.7 L Glucose 155 H POC Glucose 157 H Lactic Acid Calcium Phosphorus Magnesium AST ALT Lactate Dehydrogenase CK-MB (CK-2) C-Reactive Protein NT-Pro-B Natriuret Pep Total Protein Albumin Urine WBC (Auto) 12/07/19 12/07/19 12/07/19 00:13 05:34 11:33 WBC RBC Hgb Hct MCHC RDW MCH Lymph % (Auto) [place] % (Auto) [place] # Eos # [place] # (Auto) Eos # (Auto) Seg Neutrophils % Seg Neuts % (Manual) Baso # (Auto) Lymphocytes % (Manual) Monocytes % (Manual) Eosinophils % (Manual) Basophils % (Manual) Seg Neutrophils # Seg Neutrophils # Man Lymphocytes # (Manual) Monocytes # (Manual) Eosinophils # (Manual) Nucleated RBC % Basophils # (Manual) APTT Heparin Anti-Xa Level ABG pH POC ABG pO2 ABG pO2 ABG HCO3 ABG O2 Saturation ABG Base Excess POC ABG pCO2 ABG Hemoglobin ABG Oxyhemoglobin Oxyhemoglobin Sodium Potassium Chloride Carbon Dioxide BUN Creatinine Glucose POC Glucose 142 H 111 H 169 H Lactic Acid Calcium Phosphorus Magnesium AST ALT Lactate Dehydrogenase CK-MB (CK-2) C-Reactive Protein NT-Pro-B Natriuret Pep Total Protein Albumin Urine WBC (Auto) 12/07/19 12/07/19 12/07/19 12:41 13:25 18:19 WBC 12.4 H RBC 3.53 L Hgb 10.2 L Hct 32.1 L MCHC RDW 15.3 H MCH Lymph % (Auto) 10.6 L [place] % (Auto) 7.8 H [place] # 1.0 H Eos # [place] # (Auto) Eos # (Auto) Seg Neutrophils % 77.6 H Seg Neuts % (Manual) Baso # (Auto) Lymphocytes % (Manual) Monocytes % (Manual) Eosinophils % (Manual) Basophils % (Manual) Seg Neutrophils # 9.6 H Seg Neutrophils # Man Lymphocytes # (Manual) Monocytes # (Manual) Eosinophils # (Manual) Nucleated RBC % Basophils # (Manual) APTT Heparin Anti-Xa Level ABG pH POC ABG pO2 ABG pO2 ABG HCO3 ABG O2 Saturation ABG Base Excess POC ABG pCO2 ABG Hemoglobin ABG Oxyhemoglobin Oxyhemoglobin Sodium 149 H Potassium Chloride 108.4 H Carbon Dioxide BUN 26 H Creatinine 0.6 L Glucose 149 H POC Glucose 164 H Lactic Acid Calcium Phosphorus Magnesium 2.60 H AST 121 H ALT 145 H Lactate Dehydrogenase CK-MB (CK-2) C-Reactive Protein NT-Pro-B Natriuret Pep Total Protein Albumin 2.6 L Urine WBC (Auto) 12/07/19 12/08/19 12/08/19 22:25 00:02 03:55 WBC 13.3 H RBC 3.40 L Hgb 9.7 L Hct 30.8 L MCHC 31 L RDW 15.5 H MCH Lymph % (Auto) [place] % (Auto) 8.1 H [place] # 1.1 H Eos # [place] # (Auto) Eos # (Auto) Seg Neutrophils % 73.0 H Seg Neuts % (Manual) Baso # (Auto) Lymphocytes % (Manual) Monocytes % (Manual) Eosinophils % (Manual) Basophils % (Manual) Seg Neutrophils # 9.7 H Seg Neutrophils # Man Lymphocytes # (Manual) Monocytes # (Manual) Eosinophils # (Manual) Nucleated RBC % Basophils # (Manual) APTT Heparin Anti-Xa Level 0.12 L ABG pH POC ABG pO2 ABG pO2 ABG HCO3 ABG O2 Saturation ABG Base Excess POC ABG pCO2 ABG Hemoglobin ABG Oxyhemoglobin Oxyhemoglobin Sodium Potassium Chloride Carbon Dioxide BUN Creatinine Glucose POC Glucose 151 H Lactic Acid Calcium Phosphorus Magnesium AST ALT Lactate Dehydrogenase CK-MB (CK-2) C-Reactive Protein NT-Pro-B Natriuret Pep Total Protein Albumin Urine WBC (Auto) 12/08/19 12/08/19 12/08/19 03:55 05:21 06:01 WBC RBC Hgb Hct MCHC RDW MCH Lymph % (Auto) [place] % (Auto) [place] # Eos # [place] # (Auto) Eos # (Auto) Seg Neutrophils % Seg Neuts % (Manual) Baso # (Auto) Lymphocytes % (Manual) Monocytes % (Manual) Eosinophils % (Manual) Basophils % (Manual) Seg Neutrophils # Seg Neutrophils # Man Lymphocytes # (Manual) Monocytes # (Manual) Eosinophils # (Manual) Nucleated RBC % Basophils # (Manual) APTT Heparin Anti-Xa Level 0.20 L ABG pH POC ABG pO2 ABG pO2 ABG HCO3 ABG O2 Saturation ABG Base Excess POC ABG pCO2 ABG Hemoglobin ABG Oxyhemoglobin Oxyhemoglobin Sodium 149 H Potassium Chloride 108.0 H Carbon Dioxide BUN 28 H Creatinine 0.6 L Glucose 144 H POC Glucose 143 H Lactic Acid Calcium Phosphorus Magnesium AST 98 H ALT 145 H Lactate Dehydrogenase CK-MB (CK-2) C-Reactive Protein NT-Pro-B Natriuret Pep Total Protein 6.0 L Albumin 2.4 L Urine WBC (Auto) 12/08/19 12/08/19 12/08/19 12:08 18:11 23:53 WBC RBC Hgb Hct MCHC RDW MCH Lymph % (Auto) [place] % (Auto) [place] # Eos # [place] # (Auto) Eos # (Auto) Seg Neutrophils % Seg Neuts % (Manual) Baso # (Auto) Lymphocytes % (Manual) Monocytes % (Manual) Eosinophils % (Manual) Basophils % (Manual) Seg Neutrophils # Seg Neutrophils # Man Lymphocytes # (Manual) Monocytes # (Manual) Eosinophils # (Manual) Nucleated RBC % Basophils # (Manual) APTT Heparin Anti-Xa Level ABG pH POC ABG pO2 ABG pO2 ABG HCO3 ABG O2 Saturation ABG Base Excess POC ABG pCO2 ABG Hemoglobin ABG Oxyhemoglobin Oxyhemoglobin Sodium Potassium Chloride Carbon Dioxide BUN Creatinine Glucose POC Glucose 172 H 122 H 162 H Lactic Acid Calcium Phosphorus Magnesium AST ALT Lactate Dehydrogenase CK-MB (CK-2) C-Reactive Protein NT-Pro-B Natriuret Pep Total Protein Albumin Urine WBC (Auto) 12/09/19 12/09/19 12/09/19 04:03 04:03 05:53 WBC RBC Hgb 9.1 L Hct 28.9 L MCHC RDW MCH Lymph % (Auto) [place] % (Auto) [place] # Eos # [place] # (Auto) Eos # (Auto) Seg Neutrophils % Seg Neuts % (Manual) Baso # (Auto) Lymphocytes % (Manual) Monocytes % (Manual) Eosinophils % (Manual) Basophils % (Manual) Seg Neutrophils # Seg Neutrophils # Man Lymphocytes # (Manual) Monocytes # (Manual) Eosinophils # (Manual) Nucleated RBC % Basophils # (Manual) APTT Heparin Anti-Xa Level 0.15 L ABG pH POC ABG pO2 ABG pO2 ABG HCO3 ABG O2 Saturation ABG Base Excess POC ABG pCO2 ABG Hemoglobin ABG Oxyhemoglobin Oxyhemoglobin Sodium Potassium Chloride Carbon Dioxide BUN Creatinine Glucose POC Glucose 124 H Lactic Acid Calcium Phosphorus Magnesium AST ALT Lactate Dehydrogenase CK-MB (CK-2) C-Reactive Protein NT-Pro-B Natriuret Pep Total Protein Albumin Urine WBC (Auto) 12/09/19 12/09/19 12/10/19 09:43 12:41 00:13 WBC RBC Hgb Hct MCHC RDW MCH Lymph % (Auto) [place] % (Auto) [place] # Eos # [place] # (Auto) Eos # (Auto) Seg Neutrophils % Seg Neuts % (Manual) Baso # (Auto) Lymphocytes % (Manual) Monocytes % (Manual) Eosinophils % (Manual) Basophils % (Manual) Seg Neutrophils # Seg Neutrophils # Man Lymphocytes # (Manual) Monocytes # (Manual) Eosinophils # (Manual) Nucleated RBC % Basophils # (Manual) APTT Heparin Anti-Xa Level ABG pH POC ABG pO2 ABG pO2 ABG HCO3 ABG O2 Saturation ABG Base Excess POC ABG pCO2 ABG Hemoglobin ABG Oxyhemoglobin Oxyhemoglobin Sodium Potassium Chloride Carbon Dioxide BUN 25 H Creatinine 0.6 L Glucose 131 H POC Glucose 109 H 120 H Lactic Acid Calcium Phosphorus Magnesium AST ALT Lactate Dehydrogenase CK-MB (CK-2) C-Reactive Protein NT-Pro-B Natriuret Pep Total Protein Albumin Urine WBC (Auto) 12/10/19 12/10/19 12/10/19 04:14 04:14 12:00 WBC 13.3 H RBC 3.34 L Hgb 9.6 L Hct 30.4 L MCHC RDW 15.4 H MCH Lymph % (Auto) [place] % (Auto) [place] # Eos # [place] # (Auto) Eos # (Auto) Seg Neutrophils % Seg Neuts % (Manual) 75.0 H Baso # (Auto) Lymphocytes % (Manual) 13.0 L Monocytes % (Manual) 8.0 H Eosinophils % (Manual) Basophils % (Manual) 2.0 H Seg Neutrophils # Seg Neutrophils # Man 10.0 H Lymphocytes # (Manual) Monocytes # (Manual) 1.1 H Eosinophils # (Manual) Nucleated RBC % Basophils # (Manual) 0.3 H APTT Heparin Anti-Xa Level ABG pH POC ABG pO2 ABG pO2 ABG HCO3 ABG O2 Saturation ABG Base Excess POC ABG pCO2 ABG Hemoglobin ABG Oxyhemoglobin Oxyhemoglobin Sodium 147 H Potassium Chloride 108.3 H Carbon Dioxide BUN 21 H Creatinine 0.6 L Glucose 104 H POC Glucose 133 H Lactic Acid Calcium Phosphorus Magnesium AST ALT Lactate Dehydrogenase CK-MB (CK-2) C-Reactive Protein NT-Pro-B Natriuret Pep Total Protein Albumin Urine WBC (Auto) 12/10/19 12/10/19 12/11/19 18:44 21:20 00:08 WBC 14.9 H RBC 3.36 L Hgb 9.6 L Hct 30.5 L MCHC RDW 15.4 H MCH Lymph % (Auto) [place] % (Auto) [place] # Eos # [place] # (Auto) Eos # (Auto) Seg Neutrophils % Seg Neuts % (Manual) Baso # (Auto) Lymphocytes % (Manual) Monocytes % (Manual) Eosinophils % (Manual) Basophils % (Manual) Seg Neutrophils # Seg Neutrophils # Man Lymphocytes # (Manual) Monocytes # (Manual) Eosinophils # (Manual) Nucleated RBC % Basophils # (Manual) APTT Heparin Anti-Xa Level ABG pH POC ABG pO2 ABG pO2 ABG HCO3 ABG O2 Saturation ABG Base Excess POC ABG pCO2 ABG Hemoglobin ABG Oxyhemoglobin Oxyhemoglobin Sodium Potassium Chloride Carbon Dioxide BUN Creatinine Glucose POC Glucose 119 H 134 H Lactic Acid Calcium Phosphorus Magnesium AST ALT Lactate Dehydrogenase CK-MB (CK-2) C-Reactive Protein NT-Pro-B Natriuret Pep Total Protein Albumin Urine WBC (Auto) 12/11/19 12/11/19 12/11/19 03:54 07:28 08:36 WBC 11.9 H RBC 3.25 L Hgb 9.6 L Hct 29.2 L MCHC RDW 15.7 H MCH Lymph % (Auto) [place] % (Auto) [place] # Eos # [place] # (Auto) Eos # (Auto) Seg Neutrophils % Seg Neuts % (Manual) Baso # (Auto) Lymphocytes % (Manual) Monocytes % (Manual) Eosinophils % (Manual) Basophils % (Manual) Seg Neutrophils # Seg Neutrophils # Man Lymphocytes # (Manual) Monocytes # (Manual) Eosinophils # (Manual) Nucleated RBC % Basophils # (Manual) APTT Heparin Anti-Xa Level 0.10 L 0.16 L ABG pH POC ABG pO2 ABG pO2 ABG HCO3 ABG O2 Saturation ABG Base Excess POC ABG pCO2 ABG Hemoglobin ABG Oxyhemoglobin Oxyhemoglobin Sodium Potassium Chloride Carbon Dioxide BUN Creatinine Glucose POC Glucose Lactic Acid Calcium Phosphorus Magnesium AST ALT Lactate Dehydrogenase CK-MB (CK-2) C-Reactive Protein NT-Pro-B Natriuret Pep Total Protein Albumin Urine WBC (Auto) 12/11/19 12/11/19 12/11/19 08:36 11:45 17:15 WBC RBC Hgb Hct MCHC RDW MCH Lymph % (Auto) [place] % (Auto) [place] # Eos # [place] # (Auto) Eos # (Auto) Seg Neutrophils % Seg Neuts % (Manual) Baso # (Auto) Lymphocytes % (Manual) Monocytes % (Manual) Eosinophils % (Manual) Basophils % (Manual) Seg Neutrophils # Seg Neutrophils # Man Lymphocytes # (Manual) Monocytes # (Manual) Eosinophils # (Manual) Nucleated RBC % Basophils # (Manual) APTT Heparin Anti-Xa Level ABG pH POC ABG pO2 ABG pO2 ABG HCO3 ABG O2 Saturation ABG Base Excess POC ABG pCO2 ABG Hemoglobin ABG Oxyhemoglobin Oxyhemoglobin Sodium Potassium Chloride Carbon Dioxide BUN Creatinine 0.5 L Glucose 128 H POC Glucose 136 H 109 H Lactic Acid Calcium Phosphorus Magnesium AST ALT Lactate Dehydrogenase CK-MB (CK-2) C-Reactive Protein NT-Pro-B Natriuret Pep Total Protein Albumin Urine WBC (Auto) 12/12/19 12/12/19 12/12/19 00:03 05:53 05:53 WBC RBC Hgb 8.8 L Hct 27.6 L MCHC RDW MCH Lymph % (Auto) [place] % (Auto) [place] # Eos # [place] # (Auto) Eos # (Auto) Seg Neutrophils % Seg Neuts % (Manual) Baso # (Auto) Lymphocytes % (Manual) Monocytes % (Manual) Eosinophils % (Manual) Basophils % (Manual) Seg Neutrophils # Seg Neutrophils # Man Lymphocytes # (Manual) Monocytes # (Manual) Eosinophils # (Manual) Nucleated RBC % Basophils # (Manual) APTT Heparin Anti-Xa Level 0.22 L ABG pH POC ABG pO2 ABG pO2 ABG HCO3 ABG O2 Saturation ABG Base Excess POC ABG pCO2 ABG Hemoglobin ABG Oxyhemoglobin Oxyhemoglobin Sodium Potassium Chloride Carbon Dioxide BUN Creatinine Glucose POC Glucose 116 H Lactic Acid Calcium Phosphorus Magnesium AST ALT Lactate Dehydrogenase CK-MB (CK-2) C-Reactive Protein NT-Pro-B Natriuret Pep Total Protein Albumin Urine WBC (Auto) 12/12/19 12/12/19 12/12/19 09:38 12:18 17:44 WBC RBC Hgb Hct MCHC RDW MCH Lymph % (Auto) [place] % (Auto) [place] # Eos # [place] # (Auto) Eos # (Auto) Seg Neutrophils % Seg Neuts % (Manual) Baso # (Auto) Lymphocytes % (Manual) Monocytes % (Manual) Eosinophils % (Manual) Basophils % (Manual) Seg Neutrophils # Seg Neutrophils # Man Lymphocytes # (Manual) Monocytes # (Manual) Eosinophils # (Manual) Nucleated RBC % Basophils # (Manual) APTT Heparin Anti-Xa Level ABG pH POC ABG pO2 ABG pO2 ABG HCO3 ABG O2 Saturation ABG Base Excess POC ABG pCO2 ABG Hemoglobin ABG Oxyhemoglobin Oxyhemoglobin Sodium Potassium Chloride Carbon Dioxide BUN Creatinine Glucose POC Glucose 115 H 146 H 146 H Lactic Acid Calcium Phosphorus Magnesium AST ALT Lactate Dehydrogenase CK-MB (CK-2) C-Reactive Protein NT-Pro-B Natriuret Pep Total Protein Albumin Urine WBC (Auto) 12/12/19 12/13/19 12/13/19 23:33 05:32 05:32 WBC 13.1 H RBC 3.27 L Hgb 9.5 L Hct 29.3 L MCHC RDW 15.6 H MCH Lymph % (Auto) [place] % (Auto) [place] # Eos # [place] # (Auto) Eos # (Auto) Seg Neutrophils % Seg Neuts % (Manual) 74.0 H Baso # (Auto) Lymphocytes % (Manual) 8.0 L Monocytes % (Manual) 9.0 H Eosinophils % (Manual) 5.0 H Basophils % (Manual) Seg Neutrophils # Seg Neutrophils # Man 9.7 H Lymphocytes # (Manual) 1.0 L Monocytes # (Manual) 1.2 H Eosinophils # (Manual) 0.7 H Nucleated RBC % Basophils # (Manual) APTT Heparin Anti-Xa Level 0.20 L ABG pH POC ABG pO2 ABG pO2 ABG HCO3 ABG O2 Saturation ABG Base Excess POC ABG pCO2 ABG Hemoglobin ABG Oxyhemoglobin Oxyhemoglobin Sodium Potassium Chloride Carbon Dioxide BUN Creatinine Glucose POC Glucose 126 H Lactic Acid Calcium Phosphorus Magnesium AST ALT Lactate Dehydrogenase CK-MB (CK-2) C-Reactive Protein NT-Pro-B Natriuret Pep Total Protein Albumin Urine WBC (Auto) 12/13/19 12/13/19 12/13/19 05:32 05:46 11:57 WBC RBC Hgb Hct MCHC RDW MCH Lymph % (Auto) [place] % (Auto) [place] # Eos # [place] # (Auto) Eos # (Auto) Seg Neutrophils % Seg Neuts % (Manual) Baso # (Auto) Lymphocytes % (Manual) Monocytes % (Manual) Eosinophils % (Manual) Basophils % (Manual) Seg Neutrophils # Seg Neutrophils # Man Lymphocytes # (Manual) Monocytes # (Manual) Eosinophils # (Manual) Nucleated RBC % Basophils # (Manual) APTT Heparin Anti-Xa Level ABG pH POC ABG pO2 ABG pO2 ABG HCO3 ABG O2 Saturation ABG Base Excess POC ABG pCO2 ABG Hemoglobin ABG Oxyhemoglobin Oxyhemoglobin Sodium Potassium Chloride Carbon Dioxide 31 H BUN Creatinine 0.6 L Glucose 114 H POC Glucose 118 H 133 H Lactic Acid Calcium Phosphorus Magnesium AST ALT Lactate Dehydrogenase CK-MB (CK-2) C-Reactive Protein NT-Pro-B Natriuret Pep Total Protein Albumin Urine WBC (Auto) 12/13/19 12/13/19 12/14/19 17:44 23:46 05:32 WBC RBC Hgb Hct MCHC RDW MCH Lymph % (Auto) [place] % (Auto) [place] # Eos # [place] # (Auto) Eos # (Auto) Seg Neutrophils % Seg Neuts % (Manual) Baso # (Auto) Lymphocytes % (Manual) Monocytes % (Manual) Eosinophils % (Manual) Basophils % (Manual) Seg Neutrophils # Seg Neutrophils # Man Lymphocytes # (Manual) Monocytes # (Manual) Eosinophils # (Manual) Nucleated RBC % Basophils # (Manual) APTT Heparin Anti-Xa Level ABG pH POC ABG pO2 ABG pO2 ABG HCO3 ABG O2 Saturation ABG Base Excess POC ABG pCO2 ABG Hemoglobin ABG Oxyhemoglobin Oxyhemoglobin Sodium Potassium Chloride Carbon Dioxide BUN Creatinine Glucose POC Glucose 161 H 126 H 139 H Lactic Acid Calcium Phosphorus Magnesium AST ALT Lactate Dehydrogenase CK-MB (CK-2) C-Reactive Protein NT-Pro-B Natriuret Pep Total Protein Albumin Urine WBC (Auto) 12/14/19 12/14/19 12/14/19 06:03 06:03 09:37 WBC RBC Hgb 9.6 L Hct 30.4 L MCHC RDW MCH Lymph % (Auto) [place] % (Auto) [place] # Eos # [place] # (Auto) Eos # (Auto) Seg Neutrophils % Seg Neuts % (Manual) Baso # (Auto) Lymphocytes % (Manual) Monocytes % (Manual) Eosinophils % (Manual) Basophils % (Manual) Seg Neutrophils # Seg Neutrophils # Man Lymphocytes # (Manual) Monocytes # (Manual) Eosinophils # (Manual) Nucleated RBC % Basophils # (Manual) APTT Heparin Anti-Xa Level 0.24 L ABG pH POC ABG pO2 ABG pO2 ABG HCO3 ABG O2 Saturation ABG Base Excess POC ABG pCO2 ABG Hemoglobin ABG Oxyhemoglobin Oxyhemoglobin Sodium Potassium Chloride Carbon Dioxide BUN Creatinine 0.6 L Glucose 162 H POC Glucose Lactic Acid Calcium Phosphorus Magnesium AST 71 H ALT 118 H Lactate Dehydrogenase CK-MB (CK-2) C-Reactive Protein NT-Pro-B Natriuret Pep Total Protein 6.2 L Albumin 2.3 L Urine WBC (Auto) 12/14/19 12/14/19 12/15/19 12:06 18:18 00:19 WBC RBC Hgb Hct MCHC RDW MCH Lymph % (Auto) [place] % (Auto) [place] # Eos # [place] # (Auto) Eos # (Auto) Seg Neutrophils % Seg Neuts % (Manual) Baso # (Auto) Lymphocytes % (Manual) Monocytes % (Manual) Eosinophils % (Manual) Basophils % (Manual) Seg Neutrophils # Seg Neutrophils # Man Lymphocytes # (Manual) Monocytes # (Manual) Eosinophils # (Manual) Nucleated RBC % Basophils # (Manual) APTT Heparin Anti-Xa Level ABG pH POC ABG pO2 ABG pO2 ABG HCO3 ABG O2 Saturation ABG Base Excess POC ABG pCO2 ABG Hemoglobin ABG Oxyhemoglobin Oxyhemoglobin Sodium Potassium Chloride Carbon Dioxide BUN Creatinine Glucose POC Glucose 147 H 166 H 123 H Lactic Acid Calcium Phosphorus Magnesium AST ALT Lactate Dehydrogenase CK-MB (CK-2) C-Reactive Protein NT-Pro-B Natriuret Pep Total Protein Albumin Urine WBC (Auto) 12/15/19 12/15/19 12/15/19 05:28 05:29 05:29 WBC 14.9 H RBC 3.19 L Hgb 9.1 L Hct 28.7 L MCHC RDW 16.0 H MCH Lymph % (Auto) [place] % (Auto) [place] # Eos # [place] # (Auto) Eos # (Auto) Seg Neutrophils % Seg Neuts % (Manual) Baso # (Auto) Lymphocytes % (Manual) Monocytes % (Manual) Eosinophils % (Manual) Basophils % (Manual) Seg Neutrophils # Seg Neutrophils # Man Lymphocytes # (Manual) Monocytes # (Manual) Eosinophils # (Manual) Nucleated RBC % Basophils # (Manual) APTT Heparin Anti-Xa Level 0.19 L ABG pH POC ABG pO2 ABG pO2 ABG HCO3 ABG O2 Saturation ABG Base Excess POC ABG pCO2 ABG Hemoglobin ABG Oxyhemoglobin Oxyhemoglobin Sodium Potassium Chloride Carbon Dioxide BUN Creatinine 0.6 L Glucose 110 H POC Glucose Lactic Acid Calcium Phosphorus Magnesium AST ALT Lactate Dehydrogenase CK-MB (CK-2) C-Reactive Protein NT-Pro-B Natriuret Pep Total Protein Albumin Urine WBC (Auto) 12/15/19 12/15/19 12/15/19 05:53 11:50 17:26 WBC RBC Hgb Hct MCHC RDW MCH Lymph % (Auto) [place] % (Auto) [place] # Eos # [place] # (Auto) Eos # (Auto) Seg Neutrophils % Seg Neuts % (Manual) Baso # (Auto) Lymphocytes % (Manual) Monocytes % (Manual) Eosinophils % (Manual) Basophils % (Manual) Seg Neutrophils # Seg Neutrophils # Man Lymphocytes # (Manual) Monocytes # (Manual) Eosinophils # (Manual) Nucleated RBC % Basophils # (Manual) APTT Heparin Anti-Xa Level ABG pH POC ABG pO2 ABG pO2 ABG HCO3 ABG O2 Saturation ABG Base Excess POC ABG pCO2 ABG Hemoglobin ABG Oxyhemoglobin Oxyhemoglobin Sodium Potassium Chloride Carbon Dioxide BUN Creatinine Glucose POC Glucose 119 H 132 H 128 H Lactic Acid Calcium Phosphorus Magnesium AST ALT Lactate Dehydrogenase CK-MB (CK-2) C-Reactive Protein NT-Pro-B Natriuret Pep Total Protein Albumin Urine WBC (Auto) 12/15/19 12/16/19 12/16/19 23:11 05:30 05:46 WBC RBC Hgb 8.8 L Hct 27.9 L MCHC RDW MCH Lymph % (Auto) [place] % (Auto) [place] # Eos # [place] # (Auto) Eos # (Auto) Seg Neutrophils % Seg Neuts % (Manual) Baso # (Auto) Lymphocytes % (Manual) Monocytes % (Manual) Eosinophils % (Manual) Basophils % (Manual) Seg Neutrophils # Seg Neutrophils # Man Lymphocytes # (Manual) Monocytes # (Manual) Eosinophils # (Manual) Nucleated RBC % Basophils # (Manual) APTT Heparin Anti-Xa Level ABG pH POC ABG pO2 ABG pO2 ABG HCO3 ABG O2 Saturation ABG Base Excess POC ABG pCO2 ABG Hemoglobin ABG Oxyhemoglobin Oxyhemoglobin Sodium Potassium Chloride Carbon Dioxide BUN Creatinine Glucose POC Glucose 150 H 134 H Lactic Acid Calcium Phosphorus Magnesium AST ALT Lactate Dehydrogenase CK-MB (CK-2) C-Reactive Protein NT-Pro-B Natriuret Pep Total Protein Albumin Urine WBC (Auto) 12/16/19 12/16/19 12/16/19 05:46 05:46 11:44 WBC RBC Hgb Hct MCHC RDW MCH Lymph % (Auto) [place] % (Auto) [place] # Eos # [place] # (Auto) Eos # (Auto) Seg Neutrophils % Seg Neuts % (Manual) Baso # (Auto) Lymphocytes % (Manual) Monocytes % (Manual) Eosinophils % (Manual) Basophils % (Manual) Seg Neutrophils # Seg Neutrophils # Man Lymphocytes # (Manual) Monocytes # (Manual) Eosinophils # (Manual) Nucleated RBC % Basophils # (Manual) APTT Heparin Anti-Xa Level 0.20 L ABG pH POC ABG pO2 ABG pO2 ABG HCO3 ABG O2 Saturation ABG Base Excess POC ABG pCO2 ABG Hemoglobin ABG Oxyhemoglobin Oxyhemoglobin Sodium Potassium Chloride Carbon Dioxide 31 H BUN Creatinine 0.5 L Glucose 147 H POC Glucose 164 H Lactic Acid Calcium Phosphorus Magnesium AST ALT Lactate Dehydrogenase CK-MB (CK-2) C-Reactive Protein NT-Pro-B Natriuret Pep Total Protein Albumin Urine WBC (Auto) 12/16/19 12/16/19 12/17/19 17:17 23:49 05:30 WBC 13.9 H RBC 3.27 L Hgb 9.4 L Hct 29.2 L MCHC RDW 16.0 H MCH Lymph % (Auto) [place] % (Auto) 8.8 H [place] # Eos # [place] # (Auto) 1.2 H Eos # (Auto) 0.5 H Seg Neutrophils % 70.5 H Seg Neuts % (Manual) Baso # (Auto) 0.2 H Lymphocytes % (Manual) Monocytes % (Manual) Eosinophils % (Manual) Basophils % (Manual) Seg Neutrophils # 9.8 H Seg Neutrophils # Man Lymphocytes # (Manual) Monocytes # (Manual) Eosinophils # (Manual) Nucleated RBC % Basophils # (Manual) APTT Heparin Anti-Xa Level ABG pH POC ABG pO2 ABG pO2 ABG HCO3 ABG O2 Saturation ABG Base Excess POC ABG pCO2 ABG Hemoglobin ABG Oxyhemoglobin Oxyhemoglobin Sodium Potassium Chloride Carbon Dioxide BUN Creatinine Glucose POC Glucose 162 H 144 H Lactic Acid Calcium Phosphorus Magnesium AST ALT Lactate Dehydrogenase CK-MB (CK-2) C-Reactive Protein NT-Pro-B Natriuret Pep Total Protein Albumin Urine WBC (Auto) 12/17/19 12/17/19 12/17/19 05:30 06:06 11:50 WBC RBC Hgb Hct MCHC RDW MCH Lymph % (Auto) [place] % (Auto) [place] # Eos # [place] # (Auto) Eos # (Auto) Seg Neutrophils % Seg Neuts % (Manual) Baso # (Auto) Lymphocytes % (Manual) Monocytes % (Manual) Eosinophils % (Manual) Basophils % (Manual) Seg Neutrophils # Seg Neutrophils # Man Lymphocytes # (Manual) Monocytes # (Manual) Eosinophils # (Manual) Nucleated RBC % Basophils # (Manual) APTT Heparin Anti-Xa Level ABG pH POC ABG pO2 ABG pO2 ABG HCO3 ABG O2 Saturation ABG Base Excess POC ABG pCO2 ABG Hemoglobin ABG Oxyhemoglobin Oxyhemoglobin Sodium Potassium Chloride 97.4 L Carbon Dioxide 32 H BUN Creatinine 0.5 L Glucose 135 H POC Glucose 151 H 140 H Lactic Acid Calcium Phosphorus Magnesium AST ALT Lactate Dehydrogenase CK-MB (CK-2) C-Reactive Protein NT-Pro-B Natriuret Pep Total Protein Albumin Urine WBC (Auto) 12/17/19 12/17/19 12/18/19 17:50 23:46 05:17 WBC RBC Hgb 8.8 L Hct 28.0 L MCHC RDW MCH Lymph % (Auto) [place] % (Auto) [place] # Eos # [place] # (Auto) Eos # (Auto) Seg Neutrophils % Seg Neuts % (Manual) Baso # (Auto) Lymphocytes % (Manual) Monocytes % (Manual) Eosinophils % (Manual) Basophils % (Manual) Seg Neutrophils # Seg Neutrophils # Man Lymphocytes # (Manual) Monocytes # (Manual) Eosinophils # (Manual) Nucleated RBC % Basophils # (Manual) APTT Heparin Anti-Xa Level ABG pH POC ABG pO2 ABG pO2 ABG HCO3 ABG O2 Saturation ABG Base Excess POC ABG pCO2 ABG Hemoglobin ABG Oxyhemoglobin Oxyhemoglobin Sodium Potassium Chloride Carbon Dioxide BUN Creatinine Glucose POC Glucose 158 H 150 H Lactic Acid Calcium Phosphorus Magnesium AST ALT Lactate Dehydrogenase CK-MB (CK-2) C-Reactive Protein NT-Pro-B Natriuret Pep Total Protein Albumin Urine WBC (Auto) 12/18/19 12/18/19 12/18/19 05:17 05:49 11:12 WBC RBC Hgb Hct MCHC RDW MCH Lymph % (Auto) [place] % (Auto) [place] # Eos # [place] # (Auto) Eos # (Auto) Seg Neutrophils % Seg Neuts % (Manual) Baso # (Auto) Lymphocytes % (Manual) Monocytes % (Manual) Eosinophils % (Manual) Basophils % (Manual) Seg Neutrophils # Seg Neutrophils # Man Lymphocytes # (Manual) Monocytes # (Manual) Eosinophils # (Manual) Nucleated RBC % Basophils # (Manual) APTT Heparin Anti-Xa Level 0.16 L ABG pH POC ABG pO2 ABG pO2 ABG HCO3 ABG O2 Saturation ABG Base Excess POC ABG pCO2 ABG Hemoglobin ABG Oxyhemoglobin Oxyhemoglobin Sodium Potassium Chloride Carbon Dioxide BUN Creatinine Glucose POC Glucose 127 H 191 H Lactic Acid Calcium Phosphorus Magnesium AST ALT Lactate Dehydrogenase CK-MB (CK-2) C-Reactive Protein NT-Pro-B Natriuret Pep Total Protein Albumin Urine WBC (Auto) 12/18/19 12/18/19 12/19/19 17:03 20:16 00:08 WBC RBC Hgb Hct MCHC RDW MCH Lymph % (Auto) [place] % (Auto) [place] # Eos # [place] # (Auto) Eos # (Auto) Seg Neutrophils % Seg Neuts % (Manual) Baso # (Auto) Lymphocytes % (Manual) Monocytes % (Manual) Eosinophils % (Manual) Basophils % (Manual) Seg Neutrophils # Seg Neutrophils # Man Lymphocytes # (Manual) Monocytes # (Manual) Eosinophils # (Manual) Nucleated RBC % Basophils # (Manual) APTT Heparin Anti-Xa Level ABG pH POC ABG pO2 ABG pO2 ABG HCO3 ABG O2 Saturation ABG Base Excess POC ABG pCO2 ABG Hemoglobin ABG Oxyhemoglobin Oxyhemoglobin Sodium Potassium Chloride Carbon Dioxide BUN Creatinine Glucose POC Glucose 133 H 128 H 129 H Lactic Acid Calcium Phosphorus Magnesium AST ALT Lactate Dehydrogenase CK-MB (CK-2) C-Reactive Protein NT-Pro-B Natriuret Pep Total Protein Albumin Urine WBC (Auto) 12/19/19 12/19/19 12/19/19 04:45 04:45 05:35 WBC RBC Hgb Hct MCHC RDW MCH Lymph % (Auto) [place] % (Auto) [place] # Eos # [place] # (Auto) Eos # (Auto) Seg Neutrophils % Seg Neuts % (Manual) Baso # (Auto) Lymphocytes % (Manual) Monocytes % (Manual) Eosinophils % (Manual) Basophils % (Manual) Seg Neutrophils # Seg Neutrophils # Man Lymphocytes # (Manual) Monocytes # (Manual) Eosinophils # (Manual) Nucleated RBC % Basophils # (Manual) APTT Heparin Anti-Xa Level 0.17 L ABG pH POC ABG pO2 ABG pO2 ABG HCO3 ABG O2 Saturation ABG Base Excess POC ABG pCO2 ABG Hemoglobin ABG Oxyhemoglobin Oxyhemoglobin Sodium Potassium Chloride Carbon Dioxide BUN Creatinine Glucose POC Glucose 120 H Lactic Acid Calcium Phosphorus Magnesium AST ALT Lactate Dehydrogenase 228 H CK-MB (CK-2) C-Reactive Protein NT-Pro-B Natriuret Pep Total Protein Albumin Urine WBC (Auto) 12/19/19 12/19/19 12/19/19 09:20 11:32 11:32 WBC 14.6 H RBC 3.08 L Hgb 9.0 L Hct 26.8 L MCHC RDW 15.9 H MCH Lymph % (Auto) [place] % (Auto) [place] # Eos # [place] # (Auto) Eos # (Auto) Seg Neutrophils % Seg Neuts % (Manual) 82.0 H Baso # (Auto) Lymphocytes % (Manual) 10.0 L Monocytes % (Manual) Eosinophils % (Manual) Basophils % (Manual) Seg Neutrophils # Seg Neutrophils # Man 12.0 H Lymphocytes # (Manual) Monocytes # (Manual) 0.9 H Eosinophils # (Manual) Nucleated RBC % 1.0 H Basophils # (Manual) APTT Heparin Anti-Xa Level ABG pH 7.451 H POC ABG pO2 ABG pO2 62.6 L ABG HCO3 33.2 H ABG O2 Saturation 93.8 L ABG Base Excess 8.3 H POC ABG pCO2 ABG Hemoglobin 8.3 L ABG Oxyhemoglobin Oxyhemoglobin 91.9 L Sodium Potassium Chloride 95.0 L Carbon Dioxide 33 H BUN 22 H Creatinine 0.6 L Glucose 150 H POC Glucose Lactic Acid Calcium Phosphorus Magnesium AST ALT Lactate Dehydrogenase CK-MB (CK-2) C-Reactive Protein NT-Pro-B Natriuret Pep Total Protein 6.2 L Albumin 2.4 L Urine WBC (Auto) 12/19/19 12/19/19 12/20/19 11:56 18:17 00:09 WBC RBC Hgb Hct MCHC RDW MCH Lymph % (Auto) [place] % (Auto) [place] # Eos # [place] # (Auto) Eos # (Auto) Seg Neutrophils % Seg Neuts % (Manual) Baso # (Auto) Lymphocytes % (Manual) Monocytes % (Manual) Eosinophils % (Manual) Basophils % (Manual) Seg Neutrophils # Seg Neutrophils # Man Lymphocytes # (Manual) Monocytes # (Manual) Eosinophils # (Manual) Nucleated RBC % Basophils # (Manual) APTT Heparin Anti-Xa Level ABG pH POC ABG pO2 ABG pO2 ABG HCO3 ABG O2 Saturation ABG Base Excess POC ABG pCO2 ABG Hemoglobin ABG Oxyhemoglobin Oxyhemoglobin Sodium Potassium Chloride Carbon Dioxide BUN Creatinine Glucose POC Glucose 156 H 156 H 155 H Lactic Acid Calcium Phosphorus Magnesium AST ALT Lactate Dehydrogenase CK-MB (CK-2) C-Reactive Protein NT-Pro-B Natriuret Pep Total Protein Albumin Urine WBC (Auto) 0912/20/19 12/20/19 05:26 06:02 18:17 WBC RBC Hgb Hct MCHC RDW MCH Lymph % (Auto) [place] % (Auto) [place] # Eos # [place] # (Auto) Eos # (Auto) Seg Neutrophils % Seg Neuts % (Manual) Baso # (Auto) Lymphocytes % (Manual) Monocytes % (Manual) Eosinophils % (Manual) Basophils % (Manual) Seg Neutrophils # Seg Neutrophils # Man Lymphocytes # (Manual) Monocytes # (Manual) Eosinophils # (Manual) Nucleated RBC % Basophils # (Manual) APTT Heparin Anti-Xa Level 0.19 L ABG pH POC ABG pO2 ABG pO2 ABG HCO3 ABG O2 Saturation ABG Base Excess POC ABG pCO2 ABG Hemoglobin ABG Oxyhemoglobin Oxyhemoglobin Sodium Potassium Chloride Carbon Dioxide BUN Creatinine Glucose POC Glucose 137 H 128 H Lactic Acid Calcium Phosphorus Magnesium AST ALT Lactate Dehydrogenase CK-MB (CK-2) C-Reactive Protein NT-Pro-B Natriuret Pep Total Protein Albumin Urine WBC (Auto) 12/20/19 12/21/19 12/21/19 23:34 05:31 05:31 WBC 12.7 H RBC 3.09 L Hgb 8.9 L Hct 27.4 L MCHC RDW 15.8 H MCH Lymph % (Auto) 12.1 L [place] % (Auto) 7.8 H [place] # Eos # [place] # (Auto) 1.0 H Eos # (Auto) Seg Neutrophils % 77.1 H Seg Neuts % (Manual) Baso # (Auto) Lymphocytes % (Manual) Monocytes % (Manual) Eosinophils % (Manual) Basophils % (Manual) Seg Neutrophils # 9.8 H Seg Neutrophils # Man Lymphocytes # (Manual) Monocytes # (Manual) Eosinophils # (Manual) Nucleated RBC % Basophils # (Manual) APTT Heparin Anti-Xa Level ABG pH POC ABG pO2 ABG pO2 ABG HCO3 ABG O2 Saturation ABG Base Excess POC ABG pCO2 ABG Hemoglobin ABG Oxyhemoglobin Oxyhemoglobin Sodium Potassium Chloride 96.9 L Carbon Dioxide 37 H BUN 27 H Creatinine 0.7 L Glucose 140 H POC Glucose 145 H Lactic Acid Calcium Phosphorus Magnesium AST ALT Lactate Dehydrogenase CK-MB (CK-2) C-Reactive Protein NT-Pro-B Natriuret Pep Total Protein Albumin Urine WBC (Auto) 12/21/19 12/21/19 12/21/19 05:38 10:13 11:51 WBC RBC Hgb Hct MCHC RDW MCH Lymph % (Auto) [place] % (Auto) [place] # Eos # [place] # (Auto) Eos # (Auto) Seg Neutrophils % Seg Neuts % (Manual) Baso # (Auto) Lymphocytes % (Manual) Monocytes % (Manual) Eosinophils % (Manual) Basophils % (Manual) Seg Neutrophils # Seg Neutrophils # Man Lymphocytes # (Manual) Monocytes # (Manual) Eosinophils # (Manual) Nucleated RBC % Basophils # (Manual) APTT 23.9 L Heparin Anti-Xa Level < 0.10 L ABG pH POC ABG pO2 ABG pO2 ABG HCO3 ABG O2 Saturation ABG Base Excess POC ABG pCO2 ABG Hemoglobin ABG Oxyhemoglobin Oxyhemoglobin Sodium Potassium Chloride Carbon Dioxide BUN Creatinine Glucose POC Glucose 151 H 145 H Lactic Acid Calcium Phosphorus Magnesium AST ALT Lactate Dehydrogenase CK-MB (CK-2) C-Reactive Protein NT-Pro-B Natriuret Pep Total Protein Albumin Urine WBC (Auto) 12/21/19 12/22/19 12/22/19 17:16 00:01 01:33 WBC RBC Hgb Hct MCHC RDW MCH Lymph % (Auto) [place] % (Auto) [place] # Eos # [place] # (Auto) Eos # (Auto) Seg Neutrophils % Seg Neuts % (Manual) Baso # (Auto) Lymphocytes % (Manual) Monocytes % (Manual) Eosinophils % (Manual) Basophils % (Manual) Seg Neutrophils # Seg Neutrophils # Man Lymphocytes # (Manual) Monocytes # (Manual) Eosinophils # (Manual) Nucleated RBC % Basophils # (Manual) APTT Heparin Anti-Xa Level 0.10 L ABG pH POC ABG pO2 ABG pO2 ABG HCO3 ABG O2 Saturation ABG Base Excess POC ABG pCO2 ABG Hemoglobin ABG Oxyhemoglobin Oxyhemoglobin Sodium Potassium Chloride Carbon Dioxide BUN Creatinine Glucose POC Glucose 167 H 179 H Lactic Acid Calcium Phosphorus Magnesium AST ALT Lactate Dehydrogenase CK-MB (CK-2) C-Reactive Protein NT-Pro-B Natriuret Pep Total Protein Albumin Urine WBC (Auto) 12/22/19 12/22/19 12/22/19 03:22 05:10 05:10 WBC 13.8 H RBC 3.20 L Hgb 8.9 L Hct 28.1 L MCHC RDW 15.9 H MCH Lymph % (Auto) [place] % (Auto) [place] # Eos # [place] # (Auto) Eos # (Auto) Seg Neutrophils % Seg Neuts % (Manual) Baso # (Auto) Lymphocytes % (Manual) Monocytes % (Manual) Eosinophils % (Manual) Basophils % (Manual) Seg Neutrophils # Seg Neutrophils # Man Lymphocytes # (Manual) Monocytes # (Manual) Eosinophils # (Manual) Nucleated RBC % Basophils # (Manual) APTT Heparin Anti-Xa Level ABG pH POC ABG pO2 52.3 L ABG pO2 ABG HCO3 ABG O2 Saturation ABG Base Excess POC ABG pCO2 52.9 H ABG Hemoglobin 10.7 L ABG Oxyhemoglobin 84 L Oxyhemoglobin Sodium Potassium Chloride 96.6 L Carbon Dioxide BUN 25 H Creatinine 0.7 L Glucose 129 H POC Glucose Lactic Acid Calcium Phosphorus Magnesium AST ALT Lactate Dehydrogenase CK-MB (CK-2) C-Reactive Protein NT-Pro-B Natriuret Pep Total Protein Albumin Urine WBC (Auto) 12/22/19 12/22/19 12/22/19 05:18 12:32 12:43 WBC RBC Hgb Hct MCHC RDW MCH Lymph % (Auto) [place] % (Auto) [place] # Eos # [place] # (Auto) Eos # (Auto) Seg Neutrophils % Seg Neuts % (Manual) Baso # (Auto) Lymphocytes % (Manual) Monocytes % (Manual) Eosinophils % (Manual) Basophils % (Manual) Seg Neutrophils # Seg Neutrophils # Man Lymphocytes # (Manual) Monocytes # (Manual) Eosinophils # (Manual) Nucleated RBC % Basophils # (Manual) APTT Heparin Anti-Xa Level 0.18 L ABG pH POC ABG pO2 ABG pO2 ABG HCO3 ABG O2 Saturation ABG Base Excess POC ABG pCO2 ABG Hemoglobin ABG Oxyhemoglobin Oxyhemoglobin Sodium Potassium Chloride Carbon Dioxide BUN Creatinine Glucose POC Glucose 131 H 208 H Lactic Acid Calcium Phosphorus Magnesium AST ALT Lactate Dehydrogenase CK-MB (CK-2) C-Reactive Protein NT-Pro-B Natriuret Pep Total Protein Albumin Urine WBC (Auto) 12/22/19 12/22/19 12/23/19 17:44 23:20 03:51 WBC 15.2 H RBC 3.43 L Hgb 9.6 L Hct 30.3 L MCHC RDW 15.9 H MCH Lymph % (Auto) [place] % (Auto) [place] # Eos # [place] # (Auto) Eos # (Auto) Seg Neutrophils % Seg Neuts % (Manual) Baso # (Auto) Lymphocytes % (Manual) Monocytes % (Manual) Eosinophils % (Manual) Basophils % (Manual) Seg Neutrophils # Seg Neutrophils # Man Lymphocytes # (Manual) Monocytes # (Manual) Eosinophils # (Manual) Nucleated RBC % Basophils # (Manual) APTT Heparin Anti-Xa Level ABG pH POC ABG pO2 ABG pO2 ABG HCO3 ABG O2 Saturation ABG Base Excess POC ABG pCO2 ABG Hemoglobin ABG Oxyhemoglobin Oxyhemoglobin Sodium Potassium Chloride Carbon Dioxide BUN Creatinine Glucose POC Glucose 209 H 119 H Lactic Acid Calcium Phosphorus Magnesium AST ALT Lactate Dehydrogenase CK-MB (CK-2) C-Reactive Protein NT-Pro-B Natriuret Pep Total Protein Albumin Urine WBC (Auto) 12/23/19 12/23/19 12/23/19 03:51 05:31 12:09 WBC RBC Hgb Hct MCHC RDW MCH Lymph % (Auto) [place] % (Auto) [place] # Eos # [place] # (Auto) Eos # (Auto) Seg Neutrophils % Seg Neuts % (Manual) Baso # (Auto) Lymphocytes % (Manual) Monocytes % (Manual) Eosinophils % (Manual) Basophils % (Manual) Seg Neutrophils # Seg Neutrophils # Man Lymphocytes # (Manual) Monocytes # (Manual) Eosinophils # (Manual) Nucleated RBC % Basophils # (Manual) APTT Heparin Anti-Xa Level ABG pH POC ABG pO2 ABG pO2 ABG HCO3 ABG O2 Saturation ABG Base Excess POC ABG pCO2 ABG Hemoglobin ABG Oxyhemoglobin Oxyhemoglobin Sodium Potassium Chloride 97.2 L Carbon Dioxide 31 H BUN 23 H Creatinine 0.6 L Glucose 153 H POC Glucose 149 H 144 H Lactic Acid Calcium Phosphorus Magnesium AST ALT Lactate Dehydrogenase CK-MB (CK-2) C-Reactive Protein NT-Pro-B Natriuret Pep Total Protein Albumin Urine WBC (Auto) 12/23/19 12/23/19 12/23/19 15:30 17:49 23:31 WBC RBC Hgb Hct MCHC RDW MCH Lymph % (Auto) [place] % (Auto) [place] # Eos # [place] # (Auto) Eos # (Auto) Seg Neutrophils % Seg Neuts % (Manual) Baso # (Auto) Lymphocytes % (Manual) Monocytes % (Manual) Eosinophils % (Manual) Basophils % (Manual) Seg Neutrophils # Seg Neutrophils # Man Lymphocytes # (Manual) Monocytes # (Manual) Eosinophils # (Manual) Nucleated RBC % Basophils # (Manual) APTT Heparin Anti-Xa Level 0.21 L ABG pH POC ABG pO2 ABG pO2 ABG HCO3 ABG O2 Saturation ABG Base Excess POC ABG pCO2 ABG Hemoglobin ABG Oxyhemoglobin Oxyhemoglobin Sodium Potassium Chloride Carbon Dioxide BUN Creatinine Glucose POC Glucose 192 H 151 H Lactic Acid Calcium Phosphorus Magnesium AST ALT Lactate Dehydrogenase CK-MB (CK-2) C-Reactive Protein NT-Pro-B Natriuret Pep Total Protein Albumin Urine WBC (Auto) 12/24/19 12/24/19 12/24/19 05:34 12:13 16:50 WBC RBC Hgb Hct MCHC RDW MCH Lymph % (Auto) [place] % (Auto) [place] # Eos # [place] # (Auto) Eos # (Auto) Seg Neutrophils % Seg Neuts % (Manual) Baso # (Auto) Lymphocytes % (Manual) Monocytes % (Manual) Eosinophils % (Manual) Basophils % (Manual) Seg Neutrophils # Seg Neutrophils # Man Lymphocytes # (Manual) Monocytes # (Manual) Eosinophils # (Manual) Nucleated RBC % Basophils # (Manual) APTT Heparin Anti-Xa Level 0.16 L ABG pH POC ABG pO2 ABG pO2 ABG HCO3 ABG O2 Saturation ABG Base Excess POC ABG pCO2 ABG Hemoglobin ABG Oxyhemoglobin Oxyhemoglobin Sodium Potassium Chloride Carbon Dioxide BUN Creatinine Glucose POC Glucose 145 H 124 H Lactic Acid Calcium Phosphorus Magnesium AST ALT Lactate Dehydrogenase CK-MB (CK-2) C-Reactive Protein NT-Pro-B Natriuret Pep Total Protein Albumin Urine WBC (Auto) 12/24/19 12/25/19 12/25/19 17:53 00:14 04:18 WBC 12.9 H RBC 3.30 L Hgb 9.1 L Hct 28.8 L MCHC RDW 16.4 H MCH Lymph % (Auto) [place] % (Auto) 7.8 H [place] # Eos # [place] # (Auto) 1.0 H Eos # (Auto) Seg Neutrophils % 75.5 H Seg Neuts % (Manual) Baso # (Auto) Lymphocytes % (Manual) Monocytes % (Manual) Eosinophils % (Manual) Basophils % (Manual) Seg Neutrophils # 9.7 H Seg Neutrophils # Man Lymphocytes # (Manual) Monocytes # (Manual) Eosinophils # (Manual) Nucleated RBC % Basophils # (Manual) APTT Heparin Anti-Xa Level ABG pH POC ABG pO2 ABG pO2 ABG HCO3 ABG O2 Saturation ABG Base Excess POC ABG pCO2 ABG Hemoglobin ABG Oxyhemoglobin Oxyhemoglobin Sodium Potassium Chloride Carbon Dioxide BUN Creatinine Glucose POC Glucose 164 H 148 H Lactic Acid Calcium Phosphorus Magnesium AST ALT Lactate Dehydrogenase CK-MB (CK-2) C-Reactive Protein NT-Pro-B Natriuret Pep Total Protein Albumin Urine WBC (Auto) 12/25/19 12/25/19 12/25/19 04:18 05:38 11:44 WBC RBC Hgb Hct MCHC RDW MCH Lymph % (Auto) [place] % (Auto) [place] # Eos # [place] # (Auto) Eos # (Auto) Seg Neutrophils % Seg Neuts % (Manual) Baso # (Auto) Lymphocytes % (Manual) Monocytes % (Manual) Eosinophils % (Manual) Basophils % (Manual) Seg Neutrophils # Seg Neutrophils # Man Lymphocytes # (Manual) Monocytes # (Manual) Eosinophils # (Manual) Nucleated RBC % Basophils # (Manual) APTT Heparin Anti-Xa Level ABG pH POC ABG pO2 ABG pO2 ABG HCO3 ABG O2 Saturation ABG Base Excess POC ABG pCO2 ABG Hemoglobin ABG Oxyhemoglobin Oxyhemoglobin Sodium Potassium Chloride Carbon Dioxide 33 H BUN 27 H Creatinine 0.6 L Glucose 132 H POC Glucose 152 H 166 H Lactic Acid Calcium Phosphorus Magnesium AST ALT Lactate Dehydrogenase CK-MB (CK-2) C-Reactive Protein NT-Pro-B Natriuret Pep Total Protein Albumin Urine WBC (Auto) 12/25/19 12/26/19 12/26/19 18:29 00:17 00:18 WBC RBC Hgb Hct MCHC RDW MCH Lymph % (Auto) [place] % (Auto) [place] # Eos # [place] # (Auto) Eos # (Auto) Seg Neutrophils % Seg Neuts % (Manual) Baso # (Auto) Lymphocytes % (Manual) Monocytes % (Manual) Eosinophils % (Manual) Basophils % (Manual) Seg Neutrophils # Seg Neutrophils # Man Lymphocytes # (Manual) Monocytes # (Manual) Eosinophils # (Manual) Nucleated RBC % Basophils # (Manual) APTT Heparin Anti-Xa Level ABG pH POC ABG pO2 ABG pO2 ABG HCO3 ABG O2 Saturation ABG Base Excess POC ABG pCO2 ABG Hemoglobin ABG Oxyhemoglobin Oxyhemoglobin Sodium Potassium Chloride 97.8 L Carbon Dioxide BUN 25 H Creatinine 0.6 L Glucose 140 H POC Glucose 194 H 151 H Lactic Acid Calcium Phosphorus Magnesium AST ALT Lactate Dehydrogenase CK-MB (CK-2) C-Reactive Protein NT-Pro-B Natriuret Pep Total Protein Albumin Urine WBC (Auto) 12/26/19 12/26/19 12/26/19 05:36 11:41 17:50 WBC RBC Hgb Hct MCHC RDW MCH Lymph % (Auto) [place] % (Auto) [place] # Eos # [place] # (Auto) Eos # (Auto) Seg Neutrophils % Seg Neuts % (Manual) Baso # (Auto) Lymphocytes % (Manual) Monocytes % (Manual) Eosinophils % (Manual) Basophils % (Manual) Seg Neutrophils # Seg Neutrophils # Man Lymphocytes # (Manual) Monocytes # (Manual) Eosinophils # (Manual) Nucleated RBC % Basophils # (Manual) APTT Heparin Anti-Xa Level ABG pH POC ABG pO2 ABG pO2 ABG HCO3 ABG O2 Saturation ABG Base Excess POC ABG pCO2 ABG Hemoglobin ABG Oxyhemoglobin Oxyhemoglobin Sodium Potassium Chloride Carbon Dioxide BUN Creatinine Glucose POC Glucose 156 H 148 H 139 H Lactic Acid Calcium Phosphorus Magnesium AST ALT Lactate Dehydrogenase CK-MB (CK-2) C-Reactive Protein NT-Pro-B Natriuret Pep Total Protein Albumin Urine WBC (Auto) 12/26/19 12/27/19 12/27/19 23:19 05:34 12:02 WBC RBC Hgb Hct MCHC RDW MCH Lymph % (Auto) [place] % (Auto) [place] # Eos # [place] # (Auto) Eos # (Auto) Seg Neutrophils % Seg Neuts % (Manual) Baso # (Auto) Lymphocytes % (Manual) Monocytes % (Manual) Eosinophils % (Manual) Basophils % (Manual) Seg Neutrophils # Seg Neutrophils # Man Lymphocytes # (Manual) Monocytes # (Manual) Eosinophils # (Manual) Nucleated RBC % Basophils # (Manual) APTT Heparin Anti-Xa Level ABG pH POC ABG pO2 ABG pO2 ABG HCO3 ABG O2 Saturation ABG Base Excess POC ABG pCO2 ABG Hemoglobin ABG Oxyhemoglobin Oxyhemoglobin Sodium Potassium Chloride Carbon Dioxide BUN Creatinine Glucose POC Glucose 161 H 145 H 157 H Lactic Acid Calcium Phosphorus Magnesium AST ALT Lactate Dehydrogenase CK-MB (CK-2) C-Reactive Protein NT-Pro-B Natriuret Pep Total Protein Albumin Urine WBC (Auto) 12/27/19 12/27/19 12/27/19 17:35 20:11 23:00 WBC RBC Hgb Hct MCHC RDW MCH Lymph % (Auto) [place] % (Auto) [place] # Eos # [place] # (Auto) Eos # (Auto) Seg Neutrophils % Seg Neuts % (Manual) Baso # (Auto) Lymphocytes % (Manual) Monocytes % (Manual) Eosinophils % (Manual) Basophils % (Manual) Seg Neutrophils # Seg Neutrophils # Man Lymphocytes # (Manual) Monocytes # (Manual) Eosinophils # (Manual) Nucleated RBC % Basophils # (Manual) APTT Heparin Anti-Xa Level 0.19 L ABG pH POC ABG pO2 ABG pO2 ABG HCO3 ABG O2 Saturation ABG Base Excess POC ABG pCO2 ABG Hemoglobin ABG Oxyhemoglobin Oxyhemoglobin Sodium Potassium Chloride Carbon Dioxide BUN Creatinine Glucose POC Glucose 158 H 155 H Lactic Acid Calcium Phosphorus Magnesium AST ALT Lactate Dehydrogenase CK-MB (CK-2) C-Reactive Protein NT-Pro-B Natriuret Pep Total Protein Albumin Urine WBC (Auto) 12/27/19 12/28/19 12/28/19 23:45 02:41 02:41 WBC 13.0 H RBC 3.48 L Hgb 9.5 L Hct 30.6 L MCHC 31 L RDW 16.6 H MCH 27 L Lymph % (Auto) 13.0 L [place] % (Auto) 8.0 H [place] # Eos # [place] # (Auto) 1.0 H Eos # (Auto) Seg Neutrophils % 76.3 H Seg Neuts % (Manual) Baso # (Auto) Lymphocytes % (Manual) Monocytes % (Manual) Eosinophils % (Manual) Basophils % (Manual) Seg Neutrophils # 9.9 H Seg Neutrophils # Man Lymphocytes # (Manual) Monocytes # (Manual) Eosinophils # (Manual) Nucleated RBC % Basophils # (Manual) APTT Heparin Anti-Xa Level ABG pH POC ABG pO2 ABG pO2 ABG HCO3 ABG O2 Saturation ABG Base Excess POC ABG pCO2 ABG Hemoglobin ABG Oxyhemoglobin Oxyhemoglobin Sodium Potassium Chloride Carbon Dioxide BUN 22 H Creatinine 0.6 L Glucose 101 H POC Glucose 130 H Lactic Acid Calcium Phosphorus Magnesium AST ALT Lactate Dehydrogenase CK-MB (CK-2) C-Reactive Protein NT-Pro-B Natriuret Pep Total Protein Albumin Urine WBC (Auto) 12/28/19 06:00 WBC RBC Hgb Hct MCHC RDW MCH Lymph % (Auto) [place] % (Auto) [place] # Eos # [place] # (Auto) Eos # (Auto) Seg Neutrophils % Seg Neuts % (Manual) Baso # (Auto) Lymphocytes % (Manual) Monocytes % (Manual) Eosinophils % (Manual) Basophils % (Manual) Seg Neutrophils # Seg Neutrophils # Man Lymphocytes # (Manual) Monocytes # (Manual) Eosinophils # (Manual) Nucleated RBC % Basophils # (Manual) APTT Heparin Anti-Xa Level ABG pH POC ABG pO2 ABG pO2 ABG HCO3 ABG O2 Saturation ABG Base Excess POC ABG pCO2 ABG Hemoglobin ABG Oxyhemoglobin Oxyhemoglobin Sodium Potassium Chloride Carbon Dioxide BUN Creatinine Glucose POC Glucose 150 H Lactic Acid Calcium Phosphorus Magnesium AST ALT Lactate Dehydrogenase CK-MB (CK-2) C-Reactive Protein NT-Pro-B Natriuret Pep Total Protein Albumin Urine WBC (Auto) Allied health notes reviewed: nursing
--- NOTE | 2019-12-28 14:45 | Progress Note ---
Assessment and Plan -Acute LLL PE -Acute RLE DVT -Persistent fevers; secondary to sepsis and acute PE/DVT -Severe sepsis; secondary to bilateral pneumonia, persistent fevers -Acute hypoxemic respiratory failure, on vent unable to wean -Bilateral pneumonia, community acquired, -Aspiration Pneumonia -Sustained SVT, on amiodarone -Acute on chronic systolic congestive heart failure -History of cerebrovascular accident. -Tobacco use disorder -Alcohol abuse with DT -Acute chronic obstructive pulmonary disease exacerbation. -Hypertension and hypertensive urgency at presentation. -History of arthritis. -Paroxysmal atrial fibrillation -Leukocytosis with possible sepsis. -Lactic acidosis. -Bleeding from ET tube -Oropharyngeal dysphagia -S/P Knee surgery -History of peptic Ulcer Surgery -DVT prophylaxis COVID-19 test; 11/24/2019; negative 11/26/2019; negative Plan Continue ventilatory support Wean as tolerated as per critical care Completed abx, ID following Aspiration precautions Continue amiodarone and metoprolol for suppression of paroxysmal atrial fibrillation. Anticoagulation currently with intravenous heparin. thoracentesis cancelled as not much fluid to drawn Will need trach and PEG DVT/GI prophy Heparin/Protonix Plan of care reviewed with the patient's nurse Closely monitor the patient and adjust management as needed The high probability of a clinically significant, sudden or life threatening deterioration of the [Respiratory, cardiovascular & neurological] system(s) required my full and direct attention, intervention and personal management. The aggregate critical care time was [33] minutes without overlap. Time includes spent on [x] Data Review and interpretation [x] Patient assessment and monitoring of vital signs [x] Documentation [x] Medication orders and management Brief History Patient is a 64-year-old male with known history of hypertension, COPD, history of coronary artery disease, CHF with ejection fraction of 20 to 25% in August 2018 presenting to the emergency room via EMS complaining of shortness of breath. Patient was found to be hypoxic and in respiratory distress. Patient was placed on CPAP in route to the hospital. Oxygen saturation was said to be 88%. Started on Solu-Medrol, Lasix and magnesium in ED, patient was also found to be lethargic with an oxygen saturation of about 91% on CPAP. He was subsequently intubated. Work-up in the emergency room including chest x-ray reveals bilateral pneumonia. He had an elevated white count of 14 and also had an elevated BNP. Patient admitted to the ICU and placed on empiric IV antibiotics for pneumonia. He tested negative for COVID-19 and placed on isolation precautions. Remains intubated on ventilatory support, sputum cultures positive for Pseudomonas, ID treated with cefepime and Vanco. His hospital course became complicated with acute PE, DVT, paroxysmal atrial fib - placed on heparin drip. Patient difficult to wean off, remains intubated. 11/25: Leukocytosis improving. Continue current management anticipate extubation possible today. 11/26. Still intubated. Failed SBT yesterday. Repeat COVID-19 test is negative. 11/27. CT head ordered for possible neuro status change is negative. More responsive as the day progressed as per RN. Chest xray today shows interval improvement. He is still on antibiotics - will complete regimen today. 11/28: Considering difficult extubation and severe cardiomyopathy, will obtain cardiology consult. Aspiration precautions, tube feeds held, continue antibiotics. 11/29: Still with intermittent fever but improving imaging, continue diuresis. 11/30; Extremely agitated when placed on PSV- SVT, hypertension. Patiet acvadimo wledged that he drinks. IV Ativan given, CIWA protocol initiated. 12 lead ordered showed SVT, one dose of amiodarone ordered. continue to follow up cardiology recommendation 12/01: Patient remains on mechanical ventilation, getting SBT trial. Remains in SVT, started on amiodarone drip by cardiology. 12/02; patient is on mechanical ventilation and on spontaneous breathing trial. Cardiology started the patient on PO amiodarone. Patient is on cefepime. 12/03: patient is on mechanical ventilation. Cardiology started the patient on PO amiodarone for SVT. Patient is on cefepime, no fever overnight. 12/04: Patient is sedated and on mechanical ventilation. Patient had fever yesterday afternoon 102.3, ID changed his cefepime to meropenem. Heart rate is controlled, cardiology is following. Patient has paroxysmal atrial fibrillation and on amiodarone and metoprolol, subcu heparin for anticoagulation and will need oral anticoagulation once stable. 12/05: Sputum cultures positive for Pseudomonas, ID following 12/06; patient is febrile T-max 24 hours 102 F ,ID change antibiotics to cefepime and Vancomycin 12/07: resumed care. Na 149 today, start on 03/26 NS. cont current care 12/08: remains in a stable sinus rhythm and stable blood pressure, continue supportive care. wean off vent as tolerated. persistent fever - ordered CTA chest 12/09: noted bloody discharges from ET tube last night. CTA and LE venous doppler positive for acute PE and DVT. resume heparin drip, consult vascular for possible EKOS/ IVC filter. monitor h/h. cont SBT trial, wean off vent as tolerated. called but no answer 12/10: cont heparin drip for acute PE and DVT, follow vascular recommendation. monitor h/h, wean off vent as tolerated 12/11: o/n had bleeding from ET tube, cont to monitor h/h. vascular recommending medical Mx. called ; Nicolle Araiza [phone]. 12/12: H&H remained stable, patient on heparin drip. Discussed with yesterday. Discussed with critical care attending. Patient not tolerating SBT trial. Continue to wean off from vent as tolerated, follow clinically. Tolerating tube feeding 12/13: Continue heparin drip, wean off from vent as tolerated. Discussed with pulmonary attending if no improvement by the end of 3 weeks of intubation patient may need trach and PEG. Continue to provide supportive care, follow CBC and BMP. 12/14: Stop cefepime today, wean off from vent as tolerated. cont Heparin infusion, while monitoring for bleeding 12/15: Patient is not tolerating SBT trial, becoming apnic on CPAP. May need to place on trach and PEG. Continue heparin drip, monitor off antibiotics 12/16. Still maintained on vent. May need PEG and trach as her has been failed SBTs 12/17. Had low UO overnight. Started on tamsulosin. May need PEG and trach - defer to pulm. 12/18-. Plan for US thoracentesis to help with weaning. Remains on heparin drip for VTE. 12/20. Discussed with spouse today. He will get thoracentesis today. INR/PTT ordered. Heparin drip held. 12/21: planned for trach and PEG, cont supportive care, thoracentesis cancelled 12/22: cont supportive care, wean off from vent, daily SBT 12/23: tolerating SBT, possible extubation soon. cont supportive care 12/24: wean off vent as tolerated, daily SBT, follow clinically 12/25; cont to monitor, wean off vent as tolerated 12/26: Continue to monitor wean off vent as tolerated patient is tolerating SBT trial but not ready to wean off. 12/27: need trach and PEG, will f/u with GS, cont supportive care Subjective Date of service: 12/28/19 Principal diagnosis: Ac hypoxemic resp failure; Pneumonia; PUI COVID-19; CHF; COPD; HTN Interval history: Patient seen and examined Patient intubated on mechanical ventilation Discussed with RN at the bedside H/H STABLE, patient remains on heparin drip Objective - Exam Narrative Exam: General appearance: Present: well-nourished, other (Intubated), opens eyes to names and follows minor command - EENT Eyes: Present: PERRL, EOM intact. Absent: scleral icterus ENT: clear oral mucosa, dentition normal - Neck Neck: Present: supple, normal ROM - Respiratory Respiratory effort: normal, mechanical ventilation Respiratory: bilateral: rales - Cardiovascular Rhythm: regular Heart Sounds: Present: S1 & S2, tachycardic. Absent: gallop, systolic murmur, diastolic murmur, rub - Extremities Extremities: no ischemia, pulses intact, pulses symmetrical, No edema, Full ROM Peripheral Pulses: within normal limits - Abdominal General gastrointestinal: Present: soft, non-tender, non-distended, normal bowel sounds. Absent: mass - Integumentary Integumentary: Present: clear, warm, dry. Absent: rash - Musculoskeletal Musculoskeletal: no joint swelling - Psychiatric Psychiatric: sedated Neurology: no focal deficits - Constitutional Vitals: Vital Signs - 12hr 12/28/19 12/28/19 12/28/19 03:00 03:45 04:00 Temperature 99.1 F Pulse Rate 94 H 73 74 Pulse Rate [ 85 From Monitor] Respiratory 22 21 Rate Blood Pressure 106/72 106/72 100/59 O2 Sat by Pulse 93 93 92 Oximetry 12/28/19 12/28/19 12/28/19 05:00 06:00 06:50 Temperature Pulse Rate 82 91 H 74 Pulse Rate [ From Monitor] Respiratory 21 22 Rate Blood Pressure 105/64 105/67 100/59 O2 Sat by Pulse 95 Oximetry 12/28/19 12/28/19 12/28/19 07:00 08:00 08:01 Temperature 97.8 F Pulse Rate 88 85 128 H Pulse Rate [ 85 From Monitor] Respiratory 20 21 29 H Rate Blood Pressure 115/64 154/106 O2 Sat by Pulse 94 92 96 Oximetry 12/28/19 12/28/19 12/28/19 08:09 09:00 10:00 Temperature Pulse Rate 118 H 94 H 88 Pulse Rate [ From Monitor] Respiratory 24 19 Rate Blood Pressure 154/106 107/54 95/64 O2 Sat by Pulse 94 91 92 Oximetry 12/28/19 12/28/19 12/28/19 10:35 11:00 12:22 Temperature Pulse Rate 93 H 97 H 97 H Pulse Rate [ From Monitor] Respiratory 24 22 Rate Blood Pressure 95/64 110/76 110/76 O2 Sat by Pulse 96 96 96 Oximetry - Labs CBC & Chem 7: 12/28/19 02:41 12/28/19 02:41 Labs: Abnormal lab results 12/27/19 12/27/19 12/27/19 Range/Units 17:35 20:11 23:00 WBC (4.5-11.0) K/mm3 RBC (3.65-5.03) M/mm3 Hgb (11.8-15.2) gm/dl Hct (35.5-45.6) % MCH (28-32) pg MCHC (32-34) % RDW (13.2-15.2) % Lymph % (Auto) (13.4-35.0) % [place] % (Auto) (0.0-7.3) % [place] # (Auto) (0.0-0.8) K/mm3 Seg Neutrophils % (40.0-70.0) % Seg Neutrophils # (1.8-7.7) K/mm3 Heparin Anti-Xa Level 0.19 L (0.3-0.7) U.I./ml BUN (9-20) mg/dL Creatinine (0.8-1.3) mg/dL Glucose (75-100) mg/dL POC Glucose 158 H 155 H (70-105) 12/27/19 12/28/19 12/28/19 Range/Units 23:45 02:41 02:41 WBC 13.0 H (4.5-11.0) K/mm3 RBC 3.48 L (3.65-5.03) M/mm3 Hgb 9.5 L (11.8-15.2) gm/dl Hct 30.6 L (35.5-45.6) % MCH 27 L (28-32) pg MCHC 31 L (32-34) % RDW 16.6 H (13.2-15.2) % Lymph % (Auto) 13.0 L (13.4-35.0) % [place] % (Auto) 8.0 H (0.0-7.3) % [place] # (Auto) 1.0 H (0.0-0.8) K/mm3 Seg Neutrophils % 76.3 H (40.0-70.0) % Seg Neutrophils # 9.9 H (1.8-7.7) K/mm3 Heparin Anti-Xa Level (0.3-0.7) U.I./ml BUN 22 H (9-20) mg/dL Creatinine 0.6 L (0.8-1.3) mg/dL Glucose 101 H (75-100) mg/dL POC Glucose 130 H (70-105) 12/28/19 12/28/19 Range/Units 06:00 12:34 WBC (4.5-11.0) K/mm3 RBC (3.65-5.03) M/mm3 Hgb (11.8-15.2) gm/dl Hct (35.5-45.6) % MCH (28-32) pg MCHC (32-34) % RDW (13.2-15.2) % Lymph % (Auto) (13.4-35.0) % [place] % (Auto) (0.0-7.3) % [place] # (Auto) (0.0-0.8) K/mm3 Seg Neutrophils % (40.0-70.0) % Seg Neutrophils # (1.8-7.7) K/mm3 Heparin Anti-Xa Level (0.3-0.7) U.I./ml BUN (9-20) mg/dL Creatinine (0.8-1.3) mg/dL Glucose (75-100) mg/dL POC Glucose 150 H 161 H (70-105) HEART Score - HEART Score Troponin: Troponin T < 0.010 ng/mL (0.00-0.029) 11/24/19 02:53
--- NOTE | 2019-12-28 14:49 | Progress Note ---
Assessment and Plan 64 yo M with 1. VDRF 2. B/L PNA 3. acute PE/DVT 4. R pleural effusion Patient stable Plan: Per respiratory therapist, the patient tolerates CPAP for several hours but becomes tachypneic and restless due to thick secretions. Discussed case with Dr. Jarquin and Dr. Bishop. Patient has been optimized from the pulmonary standpoint and still unable to be extubated. Recommend proceeding with tracheostomy and PEG tube. 1. Patient is a candidate for trach and PEG. COVID testing ordered preop. If negative, will proceed with scheduling in the OR. 2. I spoke with the patient's Nicolle Araiza . We discussed all risks, benefits, alternatives to tracheostomy and PEG tube placement. All questions were answered and consent obtained. Will update her when we have a date and time for surgery. 3. Heparin drip to be held 6 hours prior to procedure and at least 6 hours after procedure. 4. Continue vent management per ICU team 5. Continue tube feeds as tolerated Thank you, please call with questions. Evaluation and treatment of this patient was during the time of the national and state emergency arising from COVID19 coronavirus pandemic. Treatment and procedures performed meet the current and available best practice and guidelines for patient during the COVID pandemic. Subjective Date of service: 12/28/19 Narrative: Patient seen and examined. No acute changes in condition. Remains on vent. Afebrile. Tolerating tube feeds. Objective Vital Signs - 12hr 12/28/19 12/28/19 12/28/19 03:00 03:45 04:00 Temperature 99.1 F Pulse Rate 94 H 73 74 Pulse Rate [ 85 From Monitor] Respiratory 22 21 Rate Blood Pressure 106/72 106/72 100/59 O2 Sat by Pulse 93 93 92 Oximetry 12/28/19 12/28/19 12/28/19 05:00 06:00 06:50 Temperature Pulse Rate 82 91 H 74 Pulse Rate [ From Monitor] Respiratory 21 22 Rate Blood Pressure 105/64 105/67 100/59 O2 Sat by Pulse 95 Oximetry 12/28/19 12/28/19 12/28/19 07:00 08:00 08:01 Temperature 97.8 F Pulse Rate 88 85 128 H Pulse Rate [ 85 From Monitor] Respiratory 20 21 29 H Rate Blood Pressure 115/64 154/106 O2 Sat by Pulse 94 92 96 Oximetry 12/28/19 12/28/19 12/28/19 08:09 09:00 10:00 Temperature Pulse Rate 118 H 94 H 88 Pulse Rate [ From Monitor] Respiratory 24 19 Rate Blood Pressure 154/106 107/54 95/64 O2 Sat by Pulse 94 91 92 Oximetry 12/28/19 12/28/19 12/28/19 10:35 11:00 12:22 Temperature Pulse Rate 93 H 97 H 97 H Pulse Rate [ From Monitor] Respiratory 24 22 Rate Blood Pressure 95/64 110/76 110/76 O2 Sat by Pulse 96 96 96 Oximetry - General physical appearance Narrative Exam: General: Awake on vent. Follows commands and answers yes/no questions appropriately. No apparent distress ENT: Trachea midline. No scleral icterus or conjunctival pallor. NG tube and ET tube in place. CV: S1, S2 present Respiratory: On vent Abdomen: Soft, nontender, nondistended Extremities: No clubbing, cyanosis, edema - Labs 12/28/19 02:41 12/28/19 02:41 Diabetes panel 12/28/19 Range/Units 02:41 Sodium 141 (137-145) mmol/L Potassium 4.6 D (3.6-5.0) mmol/L Chloride 98.0 (98-107) mmol/L Carbon Dioxide 27 (22-30) mmol/L BUN 22 H (9-20) mg/dL Creatinine 0.6 L (0.8-1.3) mg/dL Glucose 101 H (75-100) mg/dL Calcium 9.3 (8.4-10.2) mg/dL Calcium panel 12/28/19 Range/Units 02:41 Calcium 9.3 (8.4-10.2) mg/dL Pituitary panel 12/28/19 Range/Units 02:41 Sodium 141 (137-145) mmol/L Potassium 4.6 D (3.6-5.0) mmol/L Chloride 98.0 (98-107) mmol/L Carbon Dioxide 27 (22-30) mmol/L BUN 22 H (9-20) mg/dL Creatinine 0.6 L (0.8-1.3) mg/dL Glucose 101 H (75-100) mg/dL Calcium 9.3 (8.4-10.2) mg/dL Adrenal panel 12/28/19 Range/Units 02:41 Sodium 141 (137-145) mmol/L Potassium 4.6 D (3.6-5.0) mmol/L Chloride 98.0 (98-107) mmol/L Carbon Dioxide 27 (22-30) mmol/L BUN 22 H (9-20) mg/dL Creatinine 0.6 L (0.8-1.3) mg/dL Glucose 101 H (75-100) mg/dL Calcium 9.3 (8.4-10.2) mg/dL
[2019-12-28] MEDS: fentaNYL 100 MCG/2 ML INJ IV PRN (19:43)
[2019-12-28] MEDS: POLYETHYLENE GLYCOL 3350 17 GM POWDER PO SCH (21:43)
[2019-12-28] MEDS: TAMSULOSIN 0.4 MG CAP PO SCH (21:43)
[2019-12-29] MEDS: INSULIN LISPRO 100 UNIT/ML VIAL 3 mL SUB-Q SCH ×4 (00:48→19:00)
[2019-12-29] MEDS: METOPROLOL TARTRATE 50 MG TAB PO SCH ×3 (05:32→21:23)
[2019-12-29] MEDS: fentaNYL 100 MCG/2 ML INJ IV PRN ×2 (07:07→18:52)
--- NOTE | 2019-12-29 10:16 | Progress Note ---
Assessment and Plan Transient Afib after CPAP trial currently in sinus rhythm Ischemic Cardiomyopathy, resolving re-echo this presentation reports an LVEF 40-45%. echo 08/2018: decreased LVEF 20-25%. Hx of CAD [facility] 12/2018: mild in-stent restenosis. No significant residual disease. Multifocal pneumonia negative COVID-19 test x 2 Respiratory failure Acute PE/DVT on IV heparin Recommendations: Continue amiodarone and metoprolol for suppression of paroxysmal atrial fibrillation. Otherwise, conservative cardiac management. We will follow intermittently. Subjective Date of service: 12/29/19 Principal diagnosis: Ac hypoxemic resp failure; Pneumonia; PUI COVID-19; CHF; COPD; HTN Interval history: No interval cardiac changes. Stable sinus rhythm on telemetry. Patient is now planned for PEG and trach placement tomorrow. Objective Vital Signs Temp Pulse Pulse Resp BP Pulse Ox 12/29/19 08:58 100 H 26 H 102/71 93 12/29/19 07:00 91 H 18 93/69 90 12/29/19 06:00 85 19 91/65 93 12/29/19 05:32 94 H 101/62 12/29/19 05:00 91 H 22 101/62 97 12/29/19 04:20 90 104/62 95 12/29/19 04:00 97.6 F 90 90 22 107/80 96 12/29/19 03:00 89 29 H 109/80 94 12/29/19 02:00 90 21 109/80 89 12/29/19 01:00 85 21 106/75 95 12/29/19 00:25 88 97/75 96 12/29/19 00:00 97.4 F L 85 85 13 97/75 98 12/28/19 23:00 81 24 92/65 96 12/28/19 22:49 80 22 100/66 98 12/28/19 22:00 85 22 100/66 98 12/28/19 21:44 87 117/76 12/28/19 21:00 88 19 117/76 92 12/28/19 20:07 91 H 20 113/78 97 12/28/19 20:00 90 90 22 113/78 97 12/28/19 19:55 97.7 F 12/28/19 19:01 102 H 23 127/102 90 12/28/19 18:00 93 H 22 118/80 12/28/19 17:00 97 H 24 115/87 91 12/28/19 16:55 101 H 25 H 101/57 96 12/28/19 16:01 95 H 24 101/57 96 12/28/19 16:00 97.5 F L 97 H 85 21 92 12/28/19 15:58 97 H 107/66 12/28/19 15:00 83 22 107/66 12/28/19 14:00 81 21 102/63 12/28/19 13:00 88 23 111/70 96 12/28/19 12:22 97 H 22 110/76 96 12/28/19 12:00 98.2 F 83 85 18 109/69 91 12/28/19 11:00 97 H 24 110/76 96 12/28/19 10:35 93 H 95/64 96 - Physical Examination General: Other (intubated on the vent) HEENT: Positive: PERRL Neck: Positive: neck supple Cardiac: Positive: Reg Rate and Rhythm Extremities: Absent: edema - Allied health notes Allied health notes reviewed: nursing
[2019-12-29] MEDS: FAMOTIDINE 20 MG TAB PO SCH ×2 (10:43→21:23)
[2019-12-29] MEDS: AMIODARONE 200 MG TAB PO SCH ×2 (10:43→21:24)
[2019-12-29] MEDS: DOCUSATE SODIUM 100 MG/10 ML ORAL LIQD FEEDTUBE SCH ×2 (10:43→21:23)
[2019-12-29] MEDS: QUEtiapine 200 MG TAB PO SCH ×2 (10:45→21:24)
[2019-12-29] MEDS: LORazepam 2 MG/ML VIAL IV PRN ×2 (11:38→18:51)
[2019-12-29] MEDS: HEPARIN/ 0.45% NACL DRIP 25,000 UNIT/500 ML BAG IV SCH (12:00)
--- NOTE | 2019-12-29 12:18 | Progress Note ---
Assessment and Plan Acute hypoxemic respiratory failure Bilateral pneumonia, community acquired. Acute congestive heart failure exacerbation. History of cerebrovascular accident. Acute chronic obstructive pulmonary disease exacerbation. Hypertension and hypertensive urgency at presentation. History of arthritis. Oropharyngeal dysphagia Right Lext DVT Pulmonary embolism SBTs as tolerated Bowel regimen Monitor off antibiotics, trend WCC and temperature curve Gentle diuretics as tolerated by renal function and hemodynamics IV Furosemide today Discussed with General Surgeon, plan for trach and PEG once COVID is negative. Continue with daily PSV as tolerated. If he tolerates it and meets weaning criteria prior to trach, will liberate from MVS - continue to monitor renal function, hemodynamics and electrolyte profile - continue to wean oxygen for O2 sats > 90% - continue bronchodilators with pulmonary hygiene per RT - VAP bundle addressed (Aspiration precautions, HOB >40) - continue to wean per pulmonary driven protocols - continue prn analgesia per CPOT score - follow clinically re: fever curves / trend WBC - Avoid delirium (no benzodiazepines if they can be avoided) - Enteral nutrition at goal rate as tolerated - continue accuchecks with glycemic control per SSI for target blood glucose goal of 140-180 mg/dL while critically ill; Avoid hypoglycemia - continue VTE prophylaxis with Heparin therapeutic dosing for PE/DVT - continue stress ulcer prophylaxis with Famotidine BID - continue mobility protocols for pressure ulcer prophylaxis - continue fall precautions - Supportive transfusions as indicated to keep HgB>7g/dL - Continue to monitor neurologic function - Continue chronic home medications as clinically indicated - Continue all supportive care CONDITION: CRITICAL PROGNOSIS: GUARDED CODE STATUS: FULL CODE The high probability of a clinically significant, sudden or life threatening deterioration of the [Respiratory, cardiovascular & neurological] system(s) required my full and direct attention, intervention and personal management. The aggregate critical care time was [33] minutes without overlap. Time includes spent on [x] Data Review and interpretation [x] Patient assessment and monitoring of vital signs [x] Documentation [x] Medication orders and management Subjective Date of service: 12/29/19 Principal diagnosis: Ac hypoxemic resp failure; Pneumonia; PUI COVID-19; CHF; COPD; HTN Interval history: Patient is seen today for: Acute hypoxemic respiratory failure; [place]. Pneumonia (CAP); PUI COVID-19 infection; AE-CHF; AE-COPD; H/O CVA; HTN; PE, DVT Seen and examined at bedside; 24 hour events reviewed; nursing and respiratory care staff consulted; no adverse overnight events reported to me; resting peacefully in bed; ETT in place. No asynchrony, No episodes of vomiting. Awake and alert, motioning and mouthing words. Tolerating PSV 12/30 at this time Objective Vital Signs - 12hr 12/29/19 12/29/19 12/29/19 00:25 01:00 02:00 Temperature Pulse Rate 88 85 90 Pulse Rate [ From Monitor] Respiratory 21 21 Rate Blood Pressure 97/75 106/75 109/80 O2 Sat by Pulse 96 95 89 Oximetry 12/29/19 12/29/19 12/29/19 03:00 04:00 04:20 Temperature 97.6 F Pulse Rate 89 90 90 Pulse Rate [ 90 From Monitor] Respiratory 29 H 22 Rate Blood Pressure 109/80 107/80 104/62 O2 Sat by Pulse 94 96 95 Oximetry 12/29/19 12/29/19 12/29/19 05:00 05:32 06:00 Temperature Pulse Rate 91 H 94 H 85 Pulse Rate [ From Monitor] Respiratory 22 19 Rate Blood Pressure 101/62 101/62 91/65 O2 Sat by Pulse 97 93 Oximetry 12/29/19 12/29/19 12/29/19 07:00 08:00 08:58 Temperature 98.2 F Pulse Rate 91 H 93 H 100 H Pulse Rate [ From Monitor] Respiratory 18 22 26 H Rate Blood Pressure 93/69 102/71 102/71 O2 Sat by Pulse 90 94 93 Oximetry 12/29/19 12/29/19 12/29/19 09:00 10:00 11:00 Temperature Pulse Rate 98 H 94 H 98 H Pulse Rate [ From Monitor] Respiratory 25 H 23 25 H Rate Blood Pressure 115/82 102/73 110/83 O2 Sat by Pulse 92 89 93 Oximetry 12/29/19 12:00 Temperature Pulse Rate 99 H Pulse Rate [ From Monitor] Respiratory 21 Rate Blood Pressure 112/76 O2 Sat by Pulse 95 Oximetry Constitutional: no acute distress, alert, other (elderly and obese male, normocephalic with mildly increased respiratory effort at rest on MVS) Eyes: non-icteric ENT: oropharynx moist, other (ETT 24 cm JASON) Neck: supple, no JVD Effort: normal Ascultation: Bilateral: clear, diminished breath sounds (bases R>L), rhonchi Percussion: Bilateral: not dull Cardiovascular: irregular rhythm Gastrointestinal: normoactive bowel sounds, soft, non-tender, non-distended Integumentary: normal Extremities: no cyanosis, pulses normal, no ischemia or petechiae, edema (bilateral upper ) Neurologic: normal mental status, non-focal exam (moves all extremities with extreme agitation), pupils equal and round, motor strength normal and Psychiatric: mood appropriate, affect normal CBC and BMP: 12/28/19 02:41 12/28/19 02:41 ABG, PT/INR, D-dimer: ABG ABG pH 7.418 (7.320-7.450) 12/22/19 03:22 POC ABG pCO2 52.9 mmHg (32.0-48.0) H 12/22/19 03:22 ABG pCO2 48.7 mm Hg 12/19/19 09:20 POC ABG pO2 52.3 mmHg (83-108) L 12/22/19 03:22 ABG pO2 62.6 mm Hg (80.0-90.0) L 12/19/19 09:20 POC ABG HCO3 33.4 12/22/19 03:22 ABG O2 Saturation 93.8 % (95.0-99.0) L 12/19/19 09:20 PT/INR, D-dimer PT 13.8 Sec. (12.2-14.9) 12/21/19 10:13 INR 1.05 (0.87-1.13) 12/21/19 10:13 Abnormal lab findings: Abnormal Labs 11/24/19 11/24/19 11/24/19 02:53 02:53 03:45 WBC 14.3 H RBC Hgb Hct MCHC RDW 17.2 H MCH Lymph % (Auto) [place] % (Auto) [place] # Eos # [place] # (Auto) Eos # (Auto) Seg Neutrophils % Seg Neuts % (Manual) Baso # (Auto) Lymphocytes % (Manual) Monocytes % (Manual) Eosinophils % (Manual) Basophils % (Manual) Seg Neutrophils # Seg Neutrophils # Man 8.3 H Lymphocytes # (Manual) Monocytes # (Manual) 0.9 H Eosinophils # (Manual) Nucleated RBC % Basophils # (Manual) APTT Heparin Anti-Xa Level ABG pH 7.313 L POC ABG pO2 ABG pO2 102.8 H ABG HCO3 ABG O2 Saturation ABG Base Excess -2.9 L POC ABG pCO2 ABG Hemoglobin ABG Oxyhemoglobin Oxyhemoglobin 93.9 L Sodium Potassium Chloride Carbon Dioxide BUN Creatinine Glucose 195 H POC Glucose Lactic Acid Calcium Phosphorus Magnesium AST ALT Lactate Dehydrogenase CK-MB (CK-2) 4.3 H C-Reactive Protein NT-Pro-B Natriuret Pep 1181 H Total Protein Albumin Urine WBC (Auto) 11/24/19 11/24/19 11/24/19 04:53 04:53 10:37 WBC RBC Hgb Hct MCHC RDW MCH Lymph % (Auto) [place] % (Auto) [place] # Eos # [place] # (Auto) Eos # (Auto) Seg Neutrophils % Seg Neuts % (Manual) Baso # (Auto) Lymphocytes % (Manual) Monocytes % (Manual) Eosinophils % (Manual) Basophils % (Manual) Seg Neutrophils # Seg Neutrophils # Man Lymphocytes # (Manual) Monocytes # (Manual) Eosinophils # (Manual) Nucleated RBC % Basophils # (Manual) APTT Heparin Anti-Xa Level ABG pH POC ABG pO2 ABG pO2 ABG HCO3 ABG O2 Saturation ABG Base Excess POC ABG pCO2 ABG Hemoglobin ABG Oxyhemoglobin Oxyhemoglobin Sodium Potassium Chloride Carbon Dioxide BUN Creatinine Glucose 162 H POC Glucose Lactic Acid 2.40 H* 2.50 H* Calcium Phosphorus Magnesium AST ALT Lactate Dehydrogenase 240 H CK-MB (CK-2) C-Reactive Protein NT-Pro-B Natriuret Pep Total Protein Albumin Urine WBC (Auto) 11/24/19 11/24/19 11/24/19 12:21 14:50 19:54 WBC RBC Hgb Hct MCHC RDW MCH Lymph % (Auto) [place] % (Auto) [place] # Eos # [place] # (Auto) Eos # (Auto) Seg Neutrophils % Seg Neuts % (Manual) Baso # (Auto) Lymphocytes % (Manual) Monocytes % (Manual) Eosinophils % (Manual) Basophils % (Manual) Seg Neutrophils # Seg Neutrophils # Man Lymphocytes # (Manual) Monocytes # (Manual) Eosinophils # (Manual) Nucleated RBC % Basophils # (Manual) APTT Heparin Anti-Xa Level ABG pH POC ABG pO2 ABG pO2 ABG HCO3 ABG O2 Saturation ABG Base Excess POC ABG pCO2 ABG Hemoglobin ABG Oxyhemoglobin Oxyhemoglobin Sodium Potassium Chloride Carbon Dioxide BUN Creatinine Glucose POC Glucose 145 H 143 H 124 H Lactic Acid Calcium Phosphorus Magnesium AST ALT Lactate Dehydrogenase CK-MB (CK-2) C-Reactive Protein NT-Pro-B Natriuret Pep Total Protein Albumin Urine WBC (Auto) 11/25/19 11/25/19 11/25/19 00:18 03:18 05:11 WBC 13.7 H RBC Hgb Hct MCHC RDW 17.1 H MCH Lymph % (Auto) 10.8 L [place] % (Auto) 8.7 H [place] # 1.2 H Eos # [place] # (Auto) Eos # (Auto) Seg Neutrophils % 80.2 H Seg Neuts % (Manual) Baso # (Auto) Lymphocytes % (Manual) Monocytes % (Manual) Eosinophils % (Manual) Basophils % (Manual) Seg Neutrophils # 11.0 H Seg Neutrophils # Man Lymphocytes # (Manual) Monocytes # (Manual) Eosinophils # (Manual) Nucleated RBC % Basophils # (Manual) APTT Heparin Anti-Xa Level ABG pH 7.333 L POC ABG pO2 ABG pO2 61.2 L ABG HCO3 ABG O2 Saturation 90.2 L ABG Base Excess POC ABG pCO2 ABG Hemoglobin 13.7 L ABG Oxyhemoglobin Oxyhemoglobin 88.2 L Sodium Potassium Chloride Carbon Dioxide BUN Creatinine Glucose POC Glucose 109 H Lactic Acid Calcium Phosphorus Magnesium AST ALT Lactate Dehydrogenase CK-MB (CK-2) C-Reactive Protein NT-Pro-B Natriuret Pep Total Protein Albumin Urine WBC (Auto) 11/25/19 11/25/19 11/26/19 05:11 11:40 03:12 WBC RBC Hgb Hct MCHC RDW MCH Lymph % (Auto) [place] % (Auto) [place] # Eos # [place] # (Auto) Eos # (Auto) Seg Neutrophils % Seg Neuts % (Manual) Baso # (Auto) Lymphocytes % (Manual) Monocytes % (Manual) Eosinophils % (Manual) Basophils % (Manual) Seg Neutrophils # Seg Neutrophils # Man Lymphocytes # (Manual) Monocytes # (Manual) Eosinophils # (Manual) Nucleated RBC % Basophils # (Manual) APTT Heparin Anti-Xa Level ABG pH POC ABG pO2 ABG pO2 155.1 H ABG HCO3 27.8 H ABG O2 Saturation ABG Base Excess POC ABG pCO2 ABG Hemoglobin 12.2 L ABG Oxyhemoglobin Oxyhemoglobin Sodium Potassium Chloride Carbon Dioxide BUN 23 H Creatinine Glucose 110 H POC Glucose 108 H Lactic Acid Calcium Phosphorus Magnesium AST ALT Lactate Dehydrogenase CK-MB (CK-2) C-Reactive Protein NT-Pro-B Natriuret Pep Total Protein Albumin Urine WBC (Auto) 11/26/19 11/26/19 11/26/19 06:17 10:43 10:43 WBC 11.4 H RBC Hgb Hct MCHC RDW 17.1 H MCH Lymph % (Auto) [place] % (Auto) [place] # Eos # [place] # (Auto) Eos # (Auto) Seg Neutrophils % Seg Neuts % (Manual) Baso # (Auto) Lymphocytes % (Manual) Monocytes % (Manual) Eosinophils % (Manual) Basophils % (Manual) Seg Neutrophils # Seg Neutrophils # Man Lymphocytes # (Manual) Monocytes # (Manual) Eosinophils # (Manual) Nucleated RBC % Basophils # (Manual) APTT Heparin Anti-Xa Level ABG pH POC ABG pO2 ABG pO2 ABG HCO3 ABG O2 Saturation ABG Base Excess POC ABG pCO2 ABG Hemoglobin ABG Oxyhemoglobin Oxyhemoglobin Sodium Potassium Chloride Carbon Dioxide BUN 29 H Creatinine Glucose POC Glucose 107 H Lactic Acid Calcium Phosphorus Magnesium AST ALT Lactate Dehydrogenase CK-MB (CK-2) C-Reactive Protein NT-Pro-B Natriuret Pep Total Protein Albumin Urine WBC (Auto) 11/26/19 11/27/19 11/27/19 17:11 01:53 04:11 WBC RBC Hgb Hct MCHC RDW MCH Lymph % (Auto) [place] % (Auto) [place] # Eos # [place] # (Auto) Eos # (Auto) Seg Neutrophils % Seg Neuts % (Manual) Baso # (Auto) Lymphocytes % (Manual) Monocytes % (Manual) Eosinophils % (Manual) Basophils % (Manual) Seg Neutrophils # Seg Neutrophils # Man Lymphocytes # (Manual) Monocytes # (Manual) Eosinophils # (Manual) Nucleated RBC % Basophils # (Manual) APTT Heparin Anti-Xa Level ABG pH POC ABG pO2 ABG pO2 ABG HCO3 29.2 H ABG O2 Saturation ABG Base Excess 3.4 H POC ABG pCO2 ABG Hemoglobin 13.3 L ABG Oxyhemoglobin Oxyhemoglobin 94.5 L Sodium Potassium Chloride Carbon Dioxide BUN Creatinine Glucose POC Glucose 113 H 108 H Lactic Acid Calcium Phosphorus Magnesium AST ALT Lactate Dehydrogenase CK-MB (CK-2) C-Reactive Protein NT-Pro-B Natriuret Pep Total Protein Albumin Urine WBC (Auto) 11/27/19 11/28/19 11/28/19 05:27 05:00 05:25 WBC RBC Hgb Hct MCHC RDW MCH Lymph % (Auto) [place] % (Auto) [place] # Eos # [place] # (Auto) Eos # (Auto) Seg Neutrophils % Seg Neuts % (Manual) Baso # (Auto) Lymphocytes % (Manual) Monocytes % (Manual) Eosinophils % (Manual) Basophils % (Manual) Seg Neutrophils # Seg Neutrophils # Man Lymphocytes # (Manual) Monocytes # (Manual) Eosinophils # (Manual) Nucleated RBC % Basophils # (Manual) APTT Heparin Anti-Xa Level ABG pH POC ABG pO2 68.1 L ABG pO2 ABG HCO3 ABG O2 Saturation ABG Base Excess POC ABG pCO2 ABG Hemoglobin ABG Oxyhemoglobin 91.2 L Oxyhemoglobin Sodium Potassium Chloride Carbon Dioxide BUN Creatinine Glucose POC Glucose 111 H 110 H Lactic Acid Calcium Phosphorus Magnesium AST ALT Lactate Dehydrogenase CK-MB (CK-2) C-Reactive Protein NT-Pro-B Natriuret Pep Total Protein Albumin Urine WBC (Auto) 11/28/19 11/28/19 11/28/19 12:08 13:47 13:47 WBC 11.3 H RBC Hgb Hct MCHC RDW 16.1 H MCH Lymph % (Auto) [place] % (Auto) 9.9 H [place] # 1.1 H Eos # [place] # (Auto) Eos # (Auto) Seg Neutrophils % 71.4 H Seg Neuts % (Manual) Baso # (Auto) Lymphocytes % (Manual) Monocytes % (Manual) Eosinophils % (Manual) Basophils % (Manual) Seg Neutrophils # 8.1 H Seg Neutrophils # Man Lymphocytes # (Manual) Monocytes # (Manual) Eosinophils # (Manual) Nucleated RBC % Basophils # (Manual) APTT Heparin Anti-Xa Level ABG pH POC ABG pO2 ABG pO2 ABG HCO3 ABG O2 Saturation ABG Base Excess POC ABG pCO2 ABG Hemoglobin ABG Oxyhemoglobin Oxyhemoglobin Sodium Potassium Chloride Carbon Dioxide BUN 23 H Creatinine Glucose 123 H POC Glucose 112 H Lactic Acid Calcium Phosphorus Magnesium AST ALT Lactate Dehydrogenase CK-MB (CK-2) C-Reactive Protein NT-Pro-B Natriuret Pep Total Protein Albumin 3.7 L Urine WBC (Auto) 11/28/19 11/29/19 11/29/19 17:26 03:55 17:04 WBC RBC Hgb Hct MCHC RDW MCH Lymph % (Auto) [place] % (Auto) [place] # Eos # [place] # (Auto) Eos # (Auto) Seg Neutrophils % Seg Neuts % (Manual) Baso # (Auto) Lymphocytes % (Manual) Monocytes % (Manual) Eosinophils % (Manual) Basophils % (Manual) Seg Neutrophils # Seg Neutrophils # Man Lymphocytes # (Manual) Monocytes # (Manual) Eosinophils # (Manual) Nucleated RBC % Basophils # (Manual) APTT Heparin Anti-Xa Level ABG pH POC ABG pO2 ABG pO2 65.7 L ABG HCO3 28.3 H ABG O2 Saturation 93.9 L ABG Base Excess 3.6 H POC ABG pCO2 ABG Hemoglobin 13.3 L ABG Oxyhemoglobin Oxyhemoglobin 91.5 L Sodium Potassium Chloride Carbon Dioxide BUN Creatinine Glucose POC Glucose 123 H 119 H Lactic Acid Calcium Phosphorus Magnesium AST ALT Lactate Dehydrogenase CK-MB (CK-2) C-Reactive Protein NT-Pro-B Natriuret Pep Total Protein Albumin Urine WBC (Auto) 11/30/19 11/30/19 11/30/19 04:17 04:17 04:56 WBC 13.4 H RBC Hgb Hct MCHC RDW 15.6 H MCH Lymph % (Auto) [place] % (Auto) [place] # Eos # [place] # (Auto) Eos # (Auto) Seg Neutrophils % Seg Neuts % (Manual) Baso # (Auto) Lymphocytes % (Manual) Monocytes % (Manual) Eosinophils % (Manual) Basophils % (Manual) Seg Neutrophils # Seg Neutrophils # Man Lymphocytes # (Manual) Monocytes # (Manual) Eosinophils # (Manual) Nucleated RBC % Basophils # (Manual) APTT Heparin Anti-Xa Level ABG pH POC ABG pO2 ABG pO2 56.3 L ABG HCO3 29.3 H ABG O2 Saturation 91.5 L ABG Base Excess 4.7 H POC ABG pCO2 ABG Hemoglobin 12.1 L ABG Oxyhemoglobin Oxyhemoglobin 89.2 L Sodium 147 H Potassium Chloride Carbon Dioxide BUN 30 H Creatinine Glucose 124 H POC Glucose Lactic Acid Calcium Phosphorus Magnesium AST ALT Lactate Dehydrogenase CK-MB (CK-2) C-Reactive Protein NT-Pro-B Natriuret Pep Total Protein Albumin 3.8 L Urine WBC (Auto) 11/30/19 11/30/19 11/30/19 05:51 11:54 18:17 WBC RBC Hgb Hct MCHC RDW MCH Lymph % (Auto) [place] % (Auto) [place] # Eos # [place] # (Auto) Eos # (Auto) Seg Neutrophils % Seg Neuts % (Manual) Baso # (Auto) Lymphocytes % (Manual) Monocytes % (Manual) Eosinophils % (Manual) Basophils % (Manual) Seg Neutrophils # Seg Neutrophils # Man Lymphocytes # (Manual) Monocytes # (Manual) Eosinophils # (Manual) Nucleated RBC % Basophils # (Manual) APTT Heparin Anti-Xa Level ABG pH POC ABG pO2 ABG pO2 ABG HCO3 ABG O2 Saturation ABG Base Excess POC ABG pCO2 ABG Hemoglobin ABG Oxyhemoglobin Oxyhemoglobin Sodium Potassium Chloride Carbon Dioxide BUN Creatinine Glucose POC Glucose 127 H 115 H 143 H Lactic Acid Calcium Phosphorus Magnesium AST ALT Lactate Dehydrogenase CK-MB (CK-2) C-Reactive Protein NT-Pro-B Natriuret Pep Total Protein Albumin Urine WBC (Auto) 12/01/19 12/01/19 12/01/19 01:18 05:22 12:16 WBC RBC Hgb Hct MCHC RDW MCH Lymph % (Auto) [place] % (Auto) [place] # Eos # [place] # (Auto) Eos # (Auto) Seg Neutrophils % Seg Neuts % (Manual) Baso # (Auto) Lymphocytes % (Manual) Monocytes % (Manual) Eosinophils % (Manual) Basophils % (Manual) Seg Neutrophils # Seg Neutrophils # Man Lymphocytes # (Manual) Monocytes # (Manual) Eosinophils # (Manual) Nucleated RBC % Basophils # (Manual) APTT Heparin Anti-Xa Level ABG pH POC ABG pO2 ABG pO2 ABG HCO3 ABG O2 Saturation ABG Base Excess POC ABG pCO2 ABG Hemoglobin ABG Oxyhemoglobin Oxyhemoglobin Sodium Potassium 3.5 L Chloride 107.8 H Carbon Dioxide BUN 37 H Creatinine Glucose 157 H POC Glucose 118 H 148 H Lactic Acid Calcium 8.2 L D Phosphorus Magnesium AST 48 H ALT 60 H Lactate Dehydrogenase 194 H CK-MB (CK-2) C-Reactive Protein 8.50 H NT-Pro-B Natriuret Pep Total Protein 5.5 L Albumin 2.8 L Urine WBC (Auto) 12/01/19 12/02/19 12/02/19 18:04 00:05 05:16 WBC 11.4 H RBC Hgb Hct MCHC RDW 15.9 H MCH Lymph % (Auto) [place] % (Auto) 9.9 H [place] # 1.1 H Eos # [place] # (Auto) Eos # (Auto) Seg Neutrophils % 70.3 H Seg Neuts % (Manual) Baso # (Auto) Lymphocytes % (Manual) Monocytes % (Manual) Eosinophils % (Manual) Basophils % (Manual) Seg Neutrophils # 8.0 H Seg Neutrophils # Man Lymphocytes # (Manual) Monocytes # (Manual) Eosinophils # (Manual) Nucleated RBC % Basophils # (Manual) APTT Heparin Anti-Xa Level ABG pH POC ABG pO2 ABG pO2 ABG HCO3 ABG O2 Saturation ABG Base Excess POC ABG pCO2 ABG Hemoglobin ABG Oxyhemoglobin Oxyhemoglobin Sodium Potassium Chloride Carbon Dioxide BUN Creatinine Glucose POC Glucose 143 H 107 H Lactic Acid Calcium Phosphorus Magnesium AST ALT Lactate Dehydrogenase CK-MB (CK-2) C-Reactive Protein NT-Pro-B Natriuret Pep Total Protein Albumin Urine WBC (Auto) 12/02/19 12/02/19 12/02/19 05:16 06:03 11:52 WBC RBC Hgb Hct MCHC RDW MCH Lymph % (Auto) [place] % (Auto) [place] # Eos # [place] # (Auto) Eos # (Auto) Seg Neutrophils % Seg Neuts % (Manual) Baso # (Auto) Lymphocytes % (Manual) Monocytes % (Manual) Eosinophils % (Manual) Basophils % (Manual) Seg Neutrophils # Seg Neutrophils # Man Lymphocytes # (Manual) Monocytes # (Manual) Eosinophils # (Manual) Nucleated RBC % Basophils # (Manual) APTT Heparin Anti-Xa Level ABG pH POC ABG pO2 ABG pO2 ABG HCO3 ABG O2 Saturation ABG Base Excess POC ABG pCO2 ABG Hemoglobin ABG Oxyhemoglobin Oxyhemoglobin Sodium 146 H Potassium Chloride Carbon Dioxide BUN 28 H Creatinine Glucose 123 H POC Glucose 110 H 152 H Lactic Acid Calcium Phosphorus Magnesium AST ALT Lactate Dehydrogenase CK-MB (CK-2) C-Reactive Protein NT-Pro-B Natriuret Pep Total Protein Albumin Urine WBC (Auto) 12/02/19 12/02/19 12/02/19 12:58 17:58 23:36 WBC RBC Hgb Hct MCHC RDW MCH Lymph % (Auto) [place] % (Auto) [place] # Eos # [place] # (Auto) Eos # (Auto) Seg Neutrophils % Seg Neuts % (Manual) Baso # (Auto) Lymphocytes % (Manual) Monocytes % (Manual) Eosinophils % (Manual) Basophils % (Manual) Seg Neutrophils # Seg Neutrophils # Man Lymphocytes # (Manual) Monocytes # (Manual) Eosinophils # (Manual) Nucleated RBC % Basophils # (Manual) APTT Heparin Anti-Xa Level ABG pH POC ABG pO2 78.1 L ABG pO2 ABG HCO3 ABG O2 Saturation ABG Base Excess POC ABG pCO2 ABG Hemoglobin ABG Oxyhemoglobin Oxyhemoglobin Sodium Potassium Chloride Carbon Dioxide BUN Creatinine Glucose POC Glucose 120 H 123 H Lactic Acid Calcium Phosphorus Magnesium AST ALT Lactate Dehydrogenase CK-MB (CK-2) C-Reactive Protein NT-Pro-B Natriuret Pep Total Protein Albumin Urine WBC (Auto) 12/03/19 12/03/19 12/03/19 06:03 06:14 11:46 WBC RBC Hgb Hct MCHC RDW MCH Lymph % (Auto) [place] % (Auto) [place] # Eos # [place] # (Auto) Eos # (Auto) Seg Neutrophils % Seg Neuts % (Manual) Baso # (Auto) Lymphocytes % (Manual) Monocytes % (Manual) Eosinophils % (Manual) Basophils % (Manual) Seg Neutrophils # Seg Neutrophils # Man Lymphocytes # (Manual) Monocytes # (Manual) Eosinophils # (Manual) Nucleated RBC % Basophils # (Manual) APTT Heparin Anti-Xa Level ABG pH POC ABG pO2 ABG pO2 ABG HCO3 ABG O2 Saturation ABG Base Excess POC ABG pCO2 ABG Hemoglobin ABG Oxyhemoglobin Oxyhemoglobin Sodium Potassium Chloride Carbon Dioxide BUN Creatinine Glucose POC Glucose 142 H 130 H Lactic Acid Calcium Phosphorus Magnesium AST ALT Lactate Dehydrogenase CK-MB (CK-2) C-Reactive Protein NT-Pro-B Natriuret Pep Total Protein Albumin Urine WBC (Auto) 8.0 H 12/03/19 12/03/19 12/04/19 15:50 17:39 00:04 WBC RBC Hgb Hct MCHC RDW MCH Lymph % (Auto) [place] % (Auto) [place] # Eos # [place] # (Auto) Eos # (Auto) Seg Neutrophils % Seg Neuts % (Manual) Baso # (Auto) Lymphocytes % (Manual) Monocytes % (Manual) Eosinophils % (Manual) Basophils % (Manual) Seg Neutrophils # Seg Neutrophils # Man Lymphocytes # (Manual) Monocytes # (Manual) Eosinophils # (Manual) Nucleated RBC % Basophils # (Manual) APTT Heparin Anti-Xa Level ABG pH POC ABG pO2 ABG pO2 ABG HCO3 ABG O2 Saturation ABG Base Excess POC ABG pCO2 ABG Hemoglobin ABG Oxyhemoglobin Oxyhemoglobin Sodium Potassium Chloride Carbon Dioxide BUN Creatinine Glucose POC Glucose 146 H 133 H Lactic Acid Calcium Phosphorus 2.40 L Magnesium AST ALT Lactate Dehydrogenase CK-MB (CK-2) C-Reactive Protein NT-Pro-B Natriuret Pep Total Protein Albumin Urine WBC (Auto) 12/04/19 12/04/19 12/04/19 03:58 03:58 05:22 WBC 12.5 H RBC Hgb 11.2 L Hct 35.2 L MCHC RDW 16.0 H MCH Lymph % (Auto) [place] % (Auto) 9.6 H [place] # 1.2 H Eos # 0.5 H [place] # (Auto) Eos # (Auto) Seg Neutrophils % Seg Neuts % (Manual) Baso # (Auto) Lymphocytes % (Manual) Monocytes % (Manual) Eosinophils % (Manual) Basophils % (Manual) Seg Neutrophils # 8.6 H Seg Neutrophils # Man Lymphocytes # (Manual) Monocytes # (Manual) Eosinophils # (Manual) Nucleated RBC % Basophils # (Manual) APTT Heparin Anti-Xa Level ABG pH POC ABG pO2 ABG pO2 ABG HCO3 ABG O2 Saturation ABG Base Excess POC ABG pCO2 ABG Hemoglobin ABG Oxyhemoglobin Oxyhemoglobin Sodium 146 H Potassium Chloride 108.6 H Carbon Dioxide BUN 30 H Creatinine 0.7 L Glucose 121 H POC Glucose 132 H Lactic Acid Calcium Phosphorus Magnesium AST ALT Lactate Dehydrogenase CK-MB (CK-2) C-Reactive Protein NT-Pro-B Natriuret Pep Total Protein Albumin Urine WBC (Auto) 12/04/19 12/04/19 12/05/19 13:26 18:43 00:19 WBC RBC Hgb Hct MCHC RDW MCH Lymph % (Auto) [place] % (Auto) [place] # Eos # [place] # (Auto) Eos # (Auto) Seg Neutrophils % Seg Neuts % (Manual) Baso # (Auto) Lymphocytes % (Manual) Monocytes % (Manual) Eosinophils % (Manual) Basophils % (Manual) Seg Neutrophils # Seg Neutrophils # Man Lymphocytes # (Manual) Monocytes # (Manual) Eosinophils # (Manual) Nucleated RBC % Basophils # (Manual) APTT Heparin Anti-Xa Level ABG pH POC ABG pO2 ABG pO2 ABG HCO3 ABG O2 Saturation ABG Base Excess POC ABG pCO2 ABG Hemoglobin ABG Oxyhemoglobin Oxyhemoglobin Sodium Potassium Chloride Carbon Dioxide BUN Creatinine Glucose POC Glucose 185 H 156 H 150 H Lactic Acid Calcium Phosphorus Magnesium AST ALT Lactate Dehydrogenase CK-MB (CK-2) C-Reactive Protein NT-Pro-B Natriuret Pep Total Protein Albumin Urine WBC (Auto) 12/05/19 12/05/19 12/05/19 03:37 03:37 05:14 WBC 16.3 H RBC Hgb 11.4 L Hct MCHC RDW 15.6 H MCH Lymph % (Auto) 9.9 L [place] % (Auto) 9.7 H [place] # 1.6 H Eos # [place] # (Auto) Eos # (Auto) Seg Neutrophils % 78.0 H Seg Neuts % (Manual) Baso # (Auto) Lymphocytes % (Manual) Monocytes % (Manual) Eosinophils % (Manual) Basophils % (Manual) Seg Neutrophils # 12.7 H Seg Neutrophils # Man Lymphocytes # (Manual) Monocytes # (Manual) Eosinophils # (Manual) Nucleated RBC % Basophils # (Manual) APTT Heparin Anti-Xa Level ABG pH POC ABG pO2 ABG pO2 ABG HCO3 ABG O2 Saturation ABG Base Excess POC ABG pCO2 ABG Hemoglobin ABG Oxyhemoglobin Oxyhemoglobin Sodium 146 H Potassium Chloride 107.2 H Carbon Dioxide BUN 27 H Creatinine 0.7 L Glucose 171 H POC Glucose 168 H Lactic Acid Calcium Phosphorus Magnesium AST ALT Lactate Dehydrogenase CK-MB (CK-2) C-Reactive Protein NT-Pro-B Natriuret Pep Total Protein Albumin Urine WBC (Auto) 12/05/19 12/05/19 12/05/19 12:31 18:10 23:58 WBC RBC Hgb Hct MCHC RDW MCH Lymph % (Auto) [place] % (Auto) [place] # Eos # [place] # (Auto) Eos # (Auto) Seg Neutrophils % Seg Neuts % (Manual) Baso # (Auto) Lymphocytes % (Manual) Monocytes % (Manual) Eosinophils % (Manual) Basophils % (Manual) Seg Neutrophils # Seg Neutrophils # Man Lymphocytes # (Manual) Monocytes # (Manual) Eosinophils # (Manual) Nucleated RBC % Basophils # (Manual) APTT Heparin Anti-Xa Level ABG pH POC ABG pO2 ABG pO2 ABG HCO3 ABG O2 Saturation ABG Base Excess POC ABG pCO2 ABG Hemoglobin ABG Oxyhemoglobin Oxyhemoglobin Sodium Potassium Chloride Carbon Dioxide BUN Creatinine Glucose POC Glucose 159 H 198 H 115 H Lactic Acid Calcium Phosphorus Magnesium AST ALT Lactate Dehydrogenase CK-MB (CK-2) C-Reactive Protein NT-Pro-B Natriuret Pep Total Protein Albumin Urine WBC (Auto) 12/06/19 12/06/19 12/06/19 05:24 05:24 05:25 WBC 14.9 H RBC Hgb 10.8 L Hct 34.0 L MCHC RDW 15.6 H MCH Lymph % (Auto) 10.7 L [place] % (Auto) 8.3 H [place] # 1.2 H Eos # [place] # (Auto) Eos # (Auto) Seg Neutrophils % 78.7 H Seg Neuts % (Manual) Baso # (Auto) Lymphocytes % (Manual) Monocytes % (Manual) Eosinophils % (Manual) Basophils % (Manual) Seg Neutrophils # 11.7 H Seg Neutrophils # Man Lymphocytes # (Manual) Monocytes # (Manual) Eosinophils # (Manual) Nucleated RBC % Basophils # (Manual) APTT Heparin Anti-Xa Level ABG pH POC ABG pO2 ABG pO2 ABG HCO3 ABG O2 Saturation ABG Base Excess POC ABG pCO2 ABG Hemoglobin ABG Oxyhemoglobin Oxyhemoglobin Sodium 148 H Potassium 5.1 H Chloride 107.6 H Carbon Dioxide BUN 27 H Creatinine 0.7 L Glucose 155 H POC Glucose 157 H Lactic Acid Calcium Phosphorus Magnesium AST ALT Lactate Dehydrogenase CK-MB (CK-2) C-Reactive Protein NT-Pro-B Natriuret Pep Total Protein Albumin Urine WBC (Auto) 12/07/19 12/07/19 12/07/19 00:13 05:34 11:33 WBC RBC Hgb Hct MCHC RDW MCH Lymph % (Auto) [place] % (Auto) [place] # Eos # [place] # (Auto) Eos # (Auto) Seg Neutrophils % Seg Neuts % (Manual) Baso # (Auto) Lymphocytes % (Manual) Monocytes % (Manual) Eosinophils % (Manual) Basophils % (Manual) Seg Neutrophils # Seg Neutrophils # Man Lymphocytes # (Manual) Monocytes # (Manual) Eosinophils # (Manual) Nucleated RBC % Basophils # (Manual) APTT Heparin Anti-Xa Level ABG pH POC ABG pO2 ABG pO2 ABG HCO3 ABG O2 Saturation ABG Base Excess POC ABG pCO2 ABG Hemoglobin ABG Oxyhemoglobin Oxyhemoglobin Sodium Potassium Chloride Carbon Dioxide BUN Creatinine Glucose POC Glucose 142 H 111 H 169 H Lactic Acid Calcium Phosphorus Magnesium AST ALT Lactate Dehydrogenase CK-MB (CK-2) C-Reactive Protein NT-Pro-B Natriuret Pep Total Protein Albumin Urine WBC (Auto) 12/07/19 12/07/19 12/07/19 12:41 13:25 18:19 WBC 12.4 H RBC 3.53 L Hgb 10.2 L Hct 32.1 L MCHC RDW 15.3 H MCH Lymph % (Auto) 10.6 L [place] % (Auto) 7.8 H [place] # 1.0 H Eos # [place] # (Auto) Eos # (Auto) Seg Neutrophils % 77.6 H Seg Neuts % (Manual) Baso # (Auto) Lymphocytes % (Manual) Monocytes % (Manual) Eosinophils % (Manual) Basophils % (Manual) Seg Neutrophils # 9.6 H Seg Neutrophils # Man Lymphocytes # (Manual) Monocytes # (Manual) Eosinophils # (Manual) Nucleated RBC % Basophils # (Manual) APTT Heparin Anti-Xa Level ABG pH POC ABG pO2 ABG pO2 ABG HCO3 ABG O2 Saturation ABG Base Excess POC ABG pCO2 ABG Hemoglobin ABG Oxyhemoglobin Oxyhemoglobin Sodium 149 H Potassium Chloride 108.4 H Carbon Dioxide BUN 26 H Creatinine 0.6 L Glucose 149 H POC Glucose 164 H Lactic Acid Calcium Phosphorus Magnesium 2.60 H AST 121 H ALT 145 H Lactate Dehydrogenase CK-MB (CK-2) C-Reactive Protein NT-Pro-B Natriuret Pep Total Protein Albumin 2.6 L Urine WBC (Auto) 12/07/19 12/08/19 12/08/19 22:25 00:02 03:55 WBC 13.3 H RBC 3.40 L Hgb 9.7 L Hct 30.8 L MCHC 31 L RDW 15.5 H MCH Lymph % (Auto) [place] % (Auto) 8.1 H [place] # 1.1 H Eos # [place] # (Auto) Eos # (Auto) Seg Neutrophils % 73.0 H Seg Neuts % (Manual) Baso # (Auto) Lymphocytes % (Manual) Monocytes % (Manual) Eosinophils % (Manual) Basophils % (Manual) Seg Neutrophils # 9.7 H Seg Neutrophils # Man Lymphocytes # (Manual) Monocytes # (Manual) Eosinophils # (Manual) Nucleated RBC % Basophils # (Manual) APTT Heparin Anti-Xa Level 0.12 L ABG pH POC ABG pO2 ABG pO2 ABG HCO3 ABG O2 Saturation ABG Base Excess POC ABG pCO2 ABG Hemoglobin ABG Oxyhemoglobin Oxyhemoglobin Sodium Potassium Chloride Carbon Dioxide BUN Creatinine Glucose POC Glucose 151 H Lactic Acid Calcium Phosphorus Magnesium AST ALT Lactate Dehydrogenase CK-MB (CK-2) C-Reactive Protein NT-Pro-B Natriuret Pep Total Protein Albumin Urine WBC (Auto) 12/08/19 12/08/19 12/08/19 03:55 05:21 06:01 WBC RBC Hgb Hct MCHC RDW MCH Lymph % (Auto) [place] % (Auto) [place] # Eos # [place] # (Auto) Eos # (Auto) Seg Neutrophils % Seg Neuts % (Manual) Baso # (Auto) Lymphocytes % (Manual) Monocytes % (Manual) Eosinophils % (Manual) Basophils % (Manual) Seg Neutrophils # Seg Neutrophils # Man Lymphocytes # (Manual) Monocytes # (Manual) Eosinophils # (Manual) Nucleated RBC % Basophils # (Manual) APTT Heparin Anti-Xa Level 0.20 L ABG pH POC ABG pO2 ABG pO2 ABG HCO3 ABG O2 Saturation ABG Base Excess POC ABG pCO2 ABG Hemoglobin ABG Oxyhemoglobin Oxyhemoglobin Sodium 149 H Potassium Chloride 108.0 H Carbon Dioxide BUN 28 H Creatinine 0.6 L Glucose 144 H POC Glucose 143 H Lactic Acid Calcium Phosphorus Magnesium AST 98 H ALT 145 H Lactate Dehydrogenase CK-MB (CK-2) C-Reactive Protein NT-Pro-B Natriuret Pep Total Protein 6.0 L Albumin 2.4 L Urine WBC (Auto) 12/08/19 12/08/19 12/08/19 12:08 18:11 23:53 WBC RBC Hgb Hct MCHC RDW MCH Lymph % (Auto) [place] % (Auto) [place] # Eos # [place] # (Auto) Eos # (Auto) Seg Neutrophils % Seg Neuts % (Manual) Baso # (Auto) Lymphocytes % (Manual) Monocytes % (Manual) Eosinophils % (Manual) Basophils % (Manual) Seg Neutrophils # Seg Neutrophils # Man Lymphocytes # (Manual) Monocytes # (Manual) Eosinophils # (Manual) Nucleated RBC % Basophils # (Manual) APTT Heparin Anti-Xa Level ABG pH POC ABG pO2 ABG pO2 ABG HCO3 ABG O2 Saturation ABG Base Excess POC ABG pCO2 ABG Hemoglobin ABG Oxyhemoglobin Oxyhemoglobin Sodium Potassium Chloride Carbon Dioxide BUN Creatinine Glucose POC Glucose 172 H 122 H 162 H Lactic Acid Calcium Phosphorus Magnesium AST ALT Lactate Dehydrogenase CK-MB (CK-2) C-Reactive Protein NT-Pro-B Natriuret Pep Total Protein Albumin Urine WBC (Auto) 12/09/19 12/09/19 12/09/19 04:03 04:03 05:53 WBC RBC Hgb 9.1 L Hct 28.9 L MCHC RDW MCH Lymph % (Auto) [place] % (Auto) [place] # Eos # [place] # (Auto) Eos # (Auto) Seg Neutrophils % Seg Neuts % (Manual) Baso # (Auto) Lymphocytes % (Manual) Monocytes % (Manual) Eosinophils % (Manual) Basophils % (Manual) Seg Neutrophils # Seg Neutrophils # Man Lymphocytes # (Manual) Monocytes # (Manual) Eosinophils # (Manual) Nucleated RBC % Basophils # (Manual) APTT Heparin Anti-Xa Level 0.15 L ABG pH POC ABG pO2 ABG pO2 ABG HCO3 ABG O2 Saturation ABG Base Excess POC ABG pCO2 ABG Hemoglobin ABG Oxyhemoglobin Oxyhemoglobin Sodium Potassium Chloride Carbon Dioxide BUN Creatinine Glucose POC Glucose 124 H Lactic Acid Calcium Phosphorus Magnesium AST ALT Lactate Dehydrogenase CK-MB (CK-2) C-Reactive Protein NT-Pro-B Natriuret Pep Total Protein Albumin Urine WBC (Auto) 12/09/19 12/09/19 12/10/19 09:43 12:41 00:13 WBC RBC Hgb Hct MCHC RDW MCH Lymph % (Auto) [place] % (Auto) [place] # Eos # [place] # (Auto) Eos # (Auto) Seg Neutrophils % Seg Neuts % (Manual) Baso # (Auto) Lymphocytes % (Manual) Monocytes % (Manual) Eosinophils % (Manual) Basophils % (Manual) Seg Neutrophils # Seg Neutrophils # Man Lymphocytes # (Manual) Monocytes # (Manual) Eosinophils # (Manual) Nucleated RBC % Basophils # (Manual) APTT Heparin Anti-Xa Level ABG pH POC ABG pO2 ABG pO2 ABG HCO3 ABG O2 Saturation ABG Base Excess POC ABG pCO2 ABG Hemoglobin ABG Oxyhemoglobin Oxyhemoglobin Sodium Potassium Chloride Carbon Dioxide BUN 25 H Creatinine 0.6 L Glucose 131 H POC Glucose 109 H 120 H Lactic Acid Calcium Phosphorus Magnesium AST ALT Lactate Dehydrogenase CK-MB (CK-2) C-Reactive Protein NT-Pro-B Natriuret Pep Total Protein Albumin Urine WBC (Auto) 12/10/19 12/10/19 12/10/19 04:14 04:14 12:00 WBC 13.3 H RBC 3.34 L Hgb 9.6 L Hct 30.4 L MCHC RDW 15.4 H MCH Lymph % (Auto) [place] % (Auto) [place] # Eos # [place] # (Auto) Eos # (Auto) Seg Neutrophils % Seg Neuts % (Manual) 75.0 H Baso # (Auto) Lymphocytes % (Manual) 13.0 L Monocytes % (Manual) 8.0 H Eosinophils % (Manual) Basophils % (Manual) 2.0 H Seg Neutrophils # Seg Neutrophils # Man 10.0 H Lymphocytes # (Manual) Monocytes # (Manual) 1.1 H Eosinophils # (Manual) Nucleated RBC % Basophils # (Manual) 0.3 H APTT Heparin Anti-Xa Level ABG pH POC ABG pO2 ABG pO2 ABG HCO3 ABG O2 Saturation ABG Base Excess POC ABG pCO2 ABG Hemoglobin ABG Oxyhemoglobin Oxyhemoglobin Sodium 147 H Potassium Chloride 108.3 H Carbon Dioxide BUN 21 H Creatinine 0.6 L Glucose 104 H POC Glucose 133 H Lactic Acid Calcium Phosphorus Magnesium AST ALT Lactate Dehydrogenase CK-MB (CK-2) C-Reactive Protein NT-Pro-B Natriuret Pep Total Protein Albumin Urine WBC (Auto) 12/10/19 12/10/19 12/11/19 18:44 21:20 00:08 WBC 14.9 H RBC 3.36 L Hgb 9.6 L Hct 30.5 L MCHC RDW 15.4 H MCH Lymph % (Auto) [place] % (Auto) [place] # Eos # [place] # (Auto) Eos # (Auto) Seg Neutrophils % Seg Neuts % (Manual) Baso # (Auto) Lymphocytes % (Manual) Monocytes % (Manual) Eosinophils % (Manual) Basophils % (Manual) Seg Neutrophils # Seg Neutrophils # Man Lymphocytes # (Manual) Monocytes # (Manual) Eosinophils # (Manual) Nucleated RBC % Basophils # (Manual) APTT Heparin Anti-Xa Level ABG pH POC ABG pO2 ABG pO2 ABG HCO3 ABG O2 Saturation ABG Base Excess POC ABG pCO2 ABG Hemoglobin ABG Oxyhemoglobin Oxyhemoglobin Sodium Potassium Chloride Carbon Dioxide BUN Creatinine Glucose POC Glucose 119 H 134 H Lactic Acid Calcium Phosphorus Magnesium AST ALT Lactate Dehydrogenase CK-MB (CK-2) C-Reactive Protein NT-Pro-B Natriuret Pep Total Protein Albumin Urine WBC (Auto) 12/11/19 12/11/19 12/11/19 03:54 07:28 08:36 WBC 11.9 H RBC 3.25 L Hgb 9.6 L Hct 29.2 L MCHC RDW 15.7 H MCH Lymph % (Auto) [place] % (Auto) [place] # Eos # [place] # (Auto) Eos # (Auto) Seg Neutrophils % Seg Neuts % (Manual) Baso # (Auto) Lymphocytes % (Manual) Monocytes % (Manual) Eosinophils % (Manual) Basophils % (Manual) Seg Neutrophils # Seg Neutrophils # Man Lymphocytes # (Manual) Monocytes # (Manual) Eosinophils # (Manual) Nucleated RBC % Basophils # (Manual) APTT Heparin Anti-Xa Level 0.10 L 0.16 L ABG pH POC ABG pO2 ABG pO2 ABG HCO3 ABG O2 Saturation ABG Base Excess POC ABG pCO2 ABG Hemoglobin ABG Oxyhemoglobin Oxyhemoglobin Sodium Potassium Chloride Carbon Dioxide BUN Creatinine Glucose POC Glucose Lactic Acid Calcium Phosphorus Magnesium AST ALT Lactate Dehydrogenase CK-MB (CK-2) C-Reactive Protein NT-Pro-B Natriuret Pep Total Protein Albumin Urine WBC (Auto) 12/11/19 12/11/19 12/11/19 08:36 11:45 17:15 WBC RBC Hgb Hct MCHC RDW MCH Lymph % (Auto) [place] % (Auto) [place] # Eos # [place] # (Auto) Eos # (Auto) Seg Neutrophils % Seg Neuts % (Manual) Baso # (Auto) Lymphocytes % (Manual) Monocytes % (Manual) Eosinophils % (Manual) Basophils % (Manual) Seg Neutrophils # Seg Neutrophils # Man Lymphocytes # (Manual) Monocytes # (Manual) Eosinophils # (Manual) Nucleated RBC % Basophils # (Manual) APTT Heparin Anti-Xa Level ABG pH POC ABG pO2 ABG pO2 ABG HCO3 ABG O2 Saturation ABG Base Excess POC ABG pCO2 ABG Hemoglobin ABG Oxyhemoglobin Oxyhemoglobin Sodium Potassium Chloride Carbon Dioxide BUN Creatinine 0.5 L Glucose 128 H POC Glucose 136 H 109 H Lactic Acid Calcium Phosphorus Magnesium AST ALT Lactate Dehydrogenase CK-MB (CK-2) C-Reactive Protein NT-Pro-B Natriuret Pep Total Protein Albumin Urine WBC (Auto) 12/12/19 12/12/19 12/12/19 00:03 05:53 05:53 WBC RBC Hgb 8.8 L Hct 27.6 L MCHC RDW MCH Lymph % (Auto) [place] % (Auto) [place] # Eos # [place] # (Auto) Eos # (Auto) Seg Neutrophils % Seg Neuts % (Manual) Baso # (Auto) Lymphocytes % (Manual) Monocytes % (Manual) Eosinophils % (Manual) Basophils % (Manual) Seg Neutrophils # Seg Neutrophils # Man Lymphocytes # (Manual) Monocytes # (Manual) Eosinophils # (Manual) Nucleated RBC % Basophils # (Manual) APTT Heparin Anti-Xa Level 0.22 L ABG pH POC ABG pO2 ABG pO2 ABG HCO3 ABG O2 Saturation ABG Base Excess POC ABG pCO2 ABG Hemoglobin ABG Oxyhemoglobin Oxyhemoglobin Sodium Potassium Chloride Carbon Dioxide BUN Creatinine Glucose POC Glucose 116 H Lactic Acid Calcium Phosphorus Magnesium AST ALT Lactate Dehydrogenase CK-MB (CK-2) C-Reactive Protein NT-Pro-B Natriuret Pep Total Protein Albumin Urine WBC (Auto) 12/12/19 12/12/19 12/12/19 09:38 12:18 17:44 WBC RBC Hgb Hct MCHC RDW MCH Lymph % (Auto) [place] % (Auto) [place] # Eos # [place] # (Auto) Eos # (Auto) Seg Neutrophils % Seg Neuts % (Manual) Baso # (Auto) Lymphocytes % (Manual) Monocytes % (Manual) Eosinophils % (Manual) Basophils % (Manual) Seg Neutrophils # Seg Neutrophils # Man Lymphocytes # (Manual) Monocytes # (Manual) Eosinophils # (Manual) Nucleated RBC % Basophils # (Manual) APTT Heparin Anti-Xa Level ABG pH POC ABG pO2 ABG pO2 ABG HCO3 ABG O2 Saturation ABG Base Excess POC ABG pCO2 ABG Hemoglobin ABG Oxyhemoglobin Oxyhemoglobin Sodium Potassium Chloride Carbon Dioxide BUN Creatinine Glucose POC Glucose 115 H 146 H 146 H Lactic Acid Calcium Phosphorus Magnesium AST ALT Lactate Dehydrogenase CK-MB (CK-2) C-Reactive Protein NT-Pro-B Natriuret Pep Total Protein Albumin Urine WBC (Auto) 12/12/19 12/13/19 12/13/19 23:33 05:32 05:32 WBC 13.1 H RBC 3.27 L Hgb 9.5 L Hct 29.3 L MCHC RDW 15.6 H MCH Lymph % (Auto) [place] % (Auto) [place] # Eos # [place] # (Auto) Eos # (Auto) Seg Neutrophils % Seg Neuts % (Manual) 74.0 H Baso # (Auto) Lymphocytes % (Manual) 8.0 L Monocytes % (Manual) 9.0 H Eosinophils % (Manual) 5.0 H Basophils % (Manual) Seg Neutrophils # Seg Neutrophils # Man 9.7 H Lymphocytes # (Manual) 1.0 L Monocytes # (Manual) 1.2 H Eosinophils # (Manual) 0.7 H Nucleated RBC % Basophils # (Manual) APTT Heparin Anti-Xa Level 0.20 L ABG pH POC ABG pO2 ABG pO2 ABG HCO3 ABG O2 Saturation ABG Base Excess POC ABG pCO2 ABG Hemoglobin ABG Oxyhemoglobin Oxyhemoglobin Sodium Potassium Chloride Carbon Dioxide BUN Creatinine Glucose POC Glucose 126 H Lactic Acid Calcium Phosphorus Magnesium AST ALT Lactate Dehydrogenase CK-MB (CK-2) C-Reactive Protein NT-Pro-B Natriuret Pep Total Protein Albumin Urine WBC (Auto) 12/13/19 12/13/19 12/13/19 05:32 05:46 11:57 WBC RBC Hgb Hct MCHC RDW MCH Lymph % (Auto) [place] % (Auto) [place] # Eos # [place] # (Auto) Eos # (Auto) Seg Neutrophils % Seg Neuts % (Manual) Baso # (Auto) Lymphocytes % (Manual) Monocytes % (Manual) Eosinophils % (Manual) Basophils % (Manual) Seg Neutrophils # Seg Neutrophils # Man Lymphocytes # (Manual) Monocytes # (Manual) Eosinophils # (Manual) Nucleated RBC % Basophils # (Manual) APTT Heparin Anti-Xa Level ABG pH POC ABG pO2 ABG pO2 ABG HCO3 ABG O2 Saturation ABG Base Excess POC ABG pCO2 ABG Hemoglobin ABG Oxyhemoglobin Oxyhemoglobin Sodium Potassium Chloride Carbon Dioxide 31 H BUN Creatinine 0.6 L Glucose 114 H POC Glucose 118 H 133 H Lactic Acid Calcium Phosphorus Magnesium AST ALT Lactate Dehydrogenase CK-MB (CK-2) C-Reactive Protein NT-Pro-B Natriuret Pep Total Protein Albumin Urine WBC (Auto) 12/13/19 12/13/19 12/14/19 17:44 23:46 05:32 WBC RBC Hgb Hct MCHC RDW MCH Lymph % (Auto) [place] % (Auto) [place] # Eos # [place] # (Auto) Eos # (Auto) Seg Neutrophils % Seg Neuts % (Manual) Baso # (Auto) Lymphocytes % (Manual) Monocytes % (Manual) Eosinophils % (Manual) Basophils % (Manual) Seg Neutrophils # Seg Neutrophils # Man Lymphocytes # (Manual) Monocytes # (Manual) Eosinophils # (Manual) Nucleated RBC % Basophils # (Manual) APTT Heparin Anti-Xa Level ABG pH POC ABG pO2 ABG pO2 ABG HCO3 ABG O2 Saturation ABG Base Excess POC ABG pCO2 ABG Hemoglobin ABG Oxyhemoglobin Oxyhemoglobin Sodium Potassium Chloride Carbon Dioxide BUN Creatinine Glucose POC Glucose 161 H 126 H 139 H Lactic Acid Calcium Phosphorus Magnesium AST ALT Lactate Dehydrogenase CK-MB (CK-2) C-Reactive Protein NT-Pro-B Natriuret Pep Total Protein Albumin Urine WBC (Auto) 12/14/19 12/14/19 12/14/19 06:03 06:03 09:37 WBC RBC Hgb 9.6 L Hct 30.4 L MCHC RDW MCH Lymph % (Auto) [place] % (Auto) [place] # Eos # [place] # (Auto) Eos # (Auto) Seg Neutrophils % Seg Neuts % (Manual) Baso # (Auto) Lymphocytes % (Manual) Monocytes % (Manual) Eosinophils % (Manual) Basophils % (Manual) Seg Neutrophils # Seg Neutrophils # Man Lymphocytes # (Manual) Monocytes # (Manual) Eosinophils # (Manual) Nucleated RBC % Basophils # (Manual) APTT Heparin Anti-Xa Level 0.24 L ABG pH POC ABG pO2 ABG pO2 ABG HCO3 ABG O2 Saturation ABG Base Excess POC ABG pCO2 ABG Hemoglobin ABG Oxyhemoglobin Oxyhemoglobin Sodium Potassium Chloride Carbon Dioxide BUN Creatinine 0.6 L Glucose 162 H POC Glucose Lactic Acid Calcium Phosphorus Magnesium AST 71 H ALT 118 H Lactate Dehydrogenase CK-MB (CK-2) C-Reactive Protein NT-Pro-B Natriuret Pep Total Protein 6.2 L Albumin 2.3 L Urine WBC (Auto) 12/14/19 12/14/19 12/15/19 12:06 18:18 00:19 WBC RBC Hgb Hct MCHC RDW MCH Lymph % (Auto) [place] % (Auto) [place] # Eos # [place] # (Auto) Eos # (Auto) Seg Neutrophils % Seg Neuts % (Manual) Baso # (Auto) Lymphocytes % (Manual) Monocytes % (Manual) Eosinophils % (Manual) Basophils % (Manual) Seg Neutrophils # Seg Neutrophils # Man Lymphocytes # (Manual) Monocytes # (Manual) Eosinophils # (Manual) Nucleated RBC % Basophils # (Manual) APTT Heparin Anti-Xa Level ABG pH POC ABG pO2 ABG pO2 ABG HCO3 ABG O2 Saturation ABG Base Excess POC ABG pCO2 ABG Hemoglobin ABG Oxyhemoglobin Oxyhemoglobin Sodium Potassium Chloride Carbon Dioxide BUN Creatinine Glucose POC Glucose 147 H 166 H 123 H Lactic Acid Calcium Phosphorus Magnesium AST ALT Lactate Dehydrogenase CK-MB (CK-2) C-Reactive Protein NT-Pro-B Natriuret Pep Total Protein Albumin Urine WBC (Auto) 12/15/19 12/15/19 12/15/19 05:28 05:29 05:29 WBC 14.9 H RBC 3.19 L Hgb 9.1 L Hct 28.7 L MCHC RDW 16.0 H MCH Lymph % (Auto) [place] % (Auto) [place] # Eos # [place] # (Auto) Eos # (Auto) Seg Neutrophils % Seg Neuts % (Manual) Baso # (Auto) Lymphocytes % (Manual) Monocytes % (Manual) Eosinophils % (Manual) Basophils % (Manual) Seg Neutrophils # Seg Neutrophils # Man Lymphocytes # (Manual) Monocytes # (Manual) Eosinophils # (Manual) Nucleated RBC % Basophils # (Manual) APTT Heparin Anti-Xa Level 0.19 L ABG pH POC ABG pO2 ABG pO2 ABG HCO3 ABG O2 Saturation ABG Base Excess POC ABG pCO2 ABG Hemoglobin ABG Oxyhemoglobin Oxyhemoglobin Sodium Potassium Chloride Carbon Dioxide BUN Creatinine 0.6 L Glucose 110 H POC Glucose Lactic Acid Calcium Phosphorus Magnesium AST ALT Lactate Dehydrogenase CK-MB (CK-2) C-Reactive Protein NT-Pro-B Natriuret Pep Total Protein Albumin Urine WBC (Auto) 12/15/19 12/15/19 12/15/19 05:53 11:50 17:26 WBC RBC Hgb Hct MCHC RDW MCH Lymph % (Auto) [place] % (Auto) [place] # Eos # [place] # (Auto) Eos # (Auto) Seg Neutrophils % Seg Neuts % (Manual) Baso # (Auto) Lymphocytes % (Manual) Monocytes % (Manual) Eosinophils % (Manual) Basophils % (Manual) Seg Neutrophils # Seg Neutrophils # Man Lymphocytes # (Manual) Monocytes # (Manual) Eosinophils # (Manual) Nucleated RBC % Basophils # (Manual) APTT Heparin Anti-Xa Level ABG pH POC ABG pO2 ABG pO2 ABG HCO3 ABG O2 Saturation ABG Base Excess POC ABG pCO2 ABG Hemoglobin ABG Oxyhemoglobin Oxyhemoglobin Sodium Potassium Chloride Carbon Dioxide BUN Creatinine Glucose POC Glucose 119 H 132 H 128 H Lactic Acid Calcium Phosphorus Magnesium AST ALT Lactate Dehydrogenase CK-MB (CK-2) C-Reactive Protein NT-Pro-B Natriuret Pep Total Protein Albumin Urine WBC (Auto) 12/15/19 12/16/19 12/16/19 23:11 05:30 05:46 WBC RBC Hgb 8.8 L Hct 27.9 L MCHC RDW MCH Lymph % (Auto) [place] % (Auto) [place] # Eos # [place] # (Auto) Eos # (Auto) Seg Neutrophils % Seg Neuts % (Manual) Baso # (Auto) Lymphocytes % (Manual) Monocytes % (Manual) Eosinophils % (Manual) Basophils % (Manual) Seg Neutrophils # Seg Neutrophils # Man Lymphocytes # (Manual) Monocytes # (Manual) Eosinophils # (Manual) Nucleated RBC % Basophils # (Manual) APTT Heparin Anti-Xa Level ABG pH POC ABG pO2 ABG pO2 ABG HCO3 ABG O2 Saturation ABG Base Excess POC ABG pCO2 ABG Hemoglobin ABG Oxyhemoglobin Oxyhemoglobin Sodium Potassium Chloride Carbon Dioxide BUN Creatinine Glucose POC Glucose 150 H 134 H Lactic Acid Calcium Phosphorus Magnesium AST ALT Lactate Dehydrogenase CK-MB (CK-2) C-Reactive Protein NT-Pro-B Natriuret Pep Total Protein Albumin Urine WBC (Auto) 12/16/19 12/16/19 12/16/19 05:46 05:46 11:44 WBC RBC Hgb Hct MCHC RDW MCH Lymph % (Auto) [place] % (Auto) [place] # Eos # [place] # (Auto) Eos # (Auto) Seg Neutrophils % Seg Neuts % (Manual) Baso # (Auto) Lymphocytes % (Manual) Monocytes % (Manual) Eosinophils % (Manual) Basophils % (Manual) Seg Neutrophils # Seg Neutrophils # Man Lymphocytes # (Manual) Monocytes # (Manual) Eosinophils # (Manual) Nucleated RBC % Basophils # (Manual) APTT Heparin Anti-Xa Level 0.20 L ABG pH POC ABG pO2 ABG pO2 ABG HCO3 ABG O2 Saturation ABG Base Excess POC ABG pCO2 ABG Hemoglobin ABG Oxyhemoglobin Oxyhemoglobin Sodium Potassium Chloride Carbon Dioxide 31 H BUN Creatinine 0.5 L Glucose 147 H POC Glucose 164 H Lactic Acid Calcium Phosphorus Magnesium AST ALT Lactate Dehydrogenase CK-MB (CK-2) C-Reactive Protein NT-Pro-B Natriuret Pep Total Protein Albumin Urine WBC (Auto) 12/16/19 12/16/19 12/17/19 17:17 23:49 05:30 WBC 13.9 H RBC 3.27 L Hgb 9.4 L Hct 29.2 L MCHC RDW 16.0 H MCH Lymph % (Auto) [place] % (Auto) 8.8 H [place] # Eos # [place] # (Auto) 1.2 H Eos # (Auto) 0.5 H Seg Neutrophils % 70.5 H Seg Neuts % (Manual) Baso # (Auto) 0.2 H Lymphocytes % (Manual) Monocytes % (Manual) Eosinophils % (Manual) Basophils % (Manual) Seg Neutrophils # 9.8 H Seg Neutrophils # Man Lymphocytes # (Manual) Monocytes # (Manual) Eosinophils # (Manual) Nucleated RBC % Basophils # (Manual) APTT Heparin Anti-Xa Level ABG pH POC ABG pO2 ABG pO2 ABG HCO3 ABG O2 Saturation ABG Base Excess POC ABG pCO2 ABG Hemoglobin ABG Oxyhemoglobin Oxyhemoglobin Sodium Potassium Chloride Carbon Dioxide BUN Creatinine Glucose POC Glucose 162 H 144 H Lactic Acid Calcium Phosphorus Magnesium AST ALT Lactate Dehydrogenase CK-MB (CK-2) C-Reactive Protein NT-Pro-B Natriuret Pep Total Protein Albumin Urine WBC (Auto) 12/17/19 12/17/19 12/17/19 05:30 06:06 11:50 WBC RBC Hgb Hct MCHC RDW MCH Lymph % (Auto) [place] % (Auto) [place] # Eos # [place] # (Auto) Eos # (Auto) Seg Neutrophils % Seg Neuts % (Manual) Baso # (Auto) Lymphocytes % (Manual) Monocytes % (Manual) Eosinophils % (Manual) Basophils % (Manual) Seg Neutrophils # Seg Neutrophils # Man Lymphocytes # (Manual) Monocytes # (Manual) Eosinophils # (Manual) Nucleated RBC % Basophils # (Manual) APTT Heparin Anti-Xa Level ABG pH POC ABG pO2 ABG pO2 ABG HCO3 ABG O2 Saturation ABG Base Excess POC ABG pCO2 ABG Hemoglobin ABG Oxyhemoglobin Oxyhemoglobin Sodium Potassium Chloride 97.4 L Carbon Dioxide 32 H BUN Creatinine 0.5 L Glucose 135 H POC Glucose 151 H 140 H Lactic Acid Calcium Phosphorus Magnesium AST ALT Lactate Dehydrogenase CK-MB (CK-2) C-Reactive Protein NT-Pro-B Natriuret Pep Total Protein Albumin Urine WBC (Auto) 12/17/19 12/17/19 12/18/19 17:50 23:46 05:17 WBC RBC Hgb 8.8 L Hct 28.0 L MCHC RDW MCH Lymph % (Auto) [place] % (Auto) [place] # Eos # [place] # (Auto) Eos # (Auto) Seg Neutrophils % Seg Neuts % (Manual) Baso # (Auto) Lymphocytes % (Manual) Monocytes % (Manual) Eosinophils % (Manual) Basophils % (Manual) Seg Neutrophils # Seg Neutrophils # Man Lymphocytes # (Manual) Monocytes # (Manual) Eosinophils # (Manual) Nucleated RBC % Basophils # (Manual) APTT Heparin Anti-Xa Level ABG pH POC ABG pO2 ABG pO2 ABG HCO3 ABG O2 Saturation ABG Base Excess POC ABG pCO2 ABG Hemoglobin ABG Oxyhemoglobin Oxyhemoglobin Sodium Potassium Chloride Carbon Dioxide BUN Creatinine Glucose POC Glucose 158 H 150 H Lactic Acid Calcium Phosphorus Magnesium AST ALT Lactate Dehydrogenase CK-MB (CK-2) C-Reactive Protein NT-Pro-B Natriuret Pep Total Protein Albumin Urine WBC (Auto) 12/18/19 12/18/19 12/18/19 05:17 05:49 11:12 WBC RBC Hgb Hct MCHC RDW MCH Lymph % (Auto) [place] % (Auto) [place] # Eos # [place] # (Auto) Eos # (Auto) Seg Neutrophils % Seg Neuts % (Manual) Baso # (Auto) Lymphocytes % (Manual) Monocytes % (Manual) Eosinophils % (Manual) Basophils % (Manual) Seg Neutrophils # Seg Neutrophils # Man Lymphocytes # (Manual) Monocytes # (Manual) Eosinophils # (Manual) Nucleated RBC % Basophils # (Manual) APTT Heparin Anti-Xa Level 0.16 L ABG pH POC ABG pO2 ABG pO2 ABG HCO3 ABG O2 Saturation ABG Base Excess POC ABG pCO2 ABG Hemoglobin ABG Oxyhemoglobin Oxyhemoglobin Sodium Potassium Chloride Carbon Dioxide BUN Creatinine Glucose POC Glucose 127 H 191 H Lactic Acid Calcium Phosphorus Magnesium AST ALT Lactate Dehydrogenase CK-MB (CK-2) C-Reactive Protein NT-Pro-B Natriuret Pep Total Protein Albumin Urine WBC (Auto) 12/18/19 12/18/19 12/19/19 17:03 20:16 00:08 WBC RBC Hgb Hct MCHC RDW MCH Lymph % (Auto) [place] % (Auto) [place] # Eos # [place] # (Auto) Eos # (Auto) Seg Neutrophils % Seg Neuts % (Manual) Baso # (Auto) Lymphocytes % (Manual) Monocytes % (Manual) Eosinophils % (Manual) Basophils % (Manual) Seg Neutrophils # Seg Neutrophils # Man Lymphocytes # (Manual) Monocytes # (Manual) Eosinophils # (Manual) Nucleated RBC % Basophils # (Manual) APTT Heparin Anti-Xa Level ABG pH POC ABG pO2 ABG pO2 ABG HCO3 ABG O2 Saturation ABG Base Excess POC ABG pCO2 ABG Hemoglobin ABG Oxyhemoglobin Oxyhemoglobin Sodium Potassium Chloride Carbon Dioxide BUN Creatinine Glucose POC Glucose 133 H 128 H 129 H Lactic Acid Calcium Phosphorus Magnesium AST ALT Lactate Dehydrogenase CK-MB (CK-2) C-Reactive Protein NT-Pro-B Natriuret Pep Total Protein Albumin Urine WBC (Auto) 12/19/19 12/19/19 12/19/19 04:45 04:45 05:35 WBC RBC Hgb Hct MCHC RDW MCH Lymph % (Auto) [place] % (Auto) [place] # Eos # [place] # (Auto) Eos # (Auto) Seg Neutrophils % Seg Neuts % (Manual) Baso # (Auto) Lymphocytes % (Manual) Monocytes % (Manual) Eosinophils % (Manual) Basophils % (Manual) Seg Neutrophils # Seg Neutrophils # Man Lymphocytes # (Manual) Monocytes # (Manual) Eosinophils # (Manual) Nucleated RBC % Basophils # (Manual) APTT Heparin Anti-Xa Level 0.17 L ABG pH POC ABG pO2 ABG pO2 ABG HCO3 ABG O2 Saturation ABG Base Excess POC ABG pCO2 ABG Hemoglobin ABG Oxyhemoglobin Oxyhemoglobin Sodium Potassium Chloride Carbon Dioxide BUN Creatinine Glucose POC Glucose 120 H Lactic Acid Calcium Phosphorus Magnesium AST ALT Lactate Dehydrogenase 228 H CK-MB (CK-2) C-Reactive Protein NT-Pro-B Natriuret Pep Total Protein Albumin Urine WBC (Auto) 12/19/19 12/19/19 12/19/19 09:20 11:32 11:32 WBC 14.6 H RBC 3.08 L Hgb 9.0 L Hct 26.8 L MCHC RDW 15.9 H MCH Lymph % (Auto) [place] % (Auto) [place] # Eos # [place] # (Auto) Eos # (Auto) Seg Neutrophils % Seg Neuts % (Manual) 82.0 H Baso # (Auto) Lymphocytes % (Manual) 10.0 L Monocytes % (Manual) Eosinophils % (Manual) Basophils % (Manual) Seg Neutrophils # Seg Neutrophils # Man 12.0 H Lymphocytes # (Manual) Monocytes # (Manual) 0.9 H Eosinophils # (Manual) Nucleated RBC % 1.0 H Basophils # (Manual) APTT Heparin Anti-Xa Level ABG pH 7.451 H POC ABG pO2 ABG pO2 62.6 L ABG HCO3 33.2 H ABG O2 Saturation 93.8 L ABG Base Excess 8.3 H POC ABG pCO2 ABG Hemoglobin 8.3 L ABG Oxyhemoglobin Oxyhemoglobin 91.9 L Sodium Potassium Chloride 95.0 L Carbon Dioxide 33 H BUN 22 H Creatinine 0.6 L Glucose 150 H POC Glucose Lactic Acid Calcium Phosphorus Magnesium AST ALT Lactate Dehydrogenase CK-MB (CK-2) C-Reactive Protein NT-Pro-B Natriuret Pep Total Protein 6.2 L Albumin 2.4 L Urine WBC (Auto) 12/19/19 12/19/19 12/20/19 11:56 18:17 00:09 WBC RBC Hgb Hct MCHC RDW MCH Lymph % (Auto) [place] % (Auto) [place] # Eos # [place] # (Auto) Eos # (Auto) Seg Neutrophils % Seg Neuts % (Manual) Baso # (Auto) Lymphocytes % (Manual) Monocytes % (Manual) Eosinophils % (Manual) Basophils % (Manual) Seg Neutrophils # Seg Neutrophils # Man Lymphocytes # (Manual) Monocytes # (Manual) Eosinophils # (Manual) Nucleated RBC % Basophils # (Manual) APTT Heparin Anti-Xa Level ABG pH POC ABG pO2 ABG pO2 ABG HCO3 ABG O2 Saturation ABG Base Excess POC ABG pCO2 ABG Hemoglobin ABG Oxyhemoglobin Oxyhemoglobin Sodium Potassium Chloride Carbon Dioxide BUN Creatinine Glucose POC Glucose 156 H 156 H 155 H Lactic Acid Calcium Phosphorus Magnesium AST ALT Lactate Dehydrogenase CK-MB (CK-2) C-Reactive Protein NT-Pro-B Natriuret Pep Total Protein Albumin Urine WBC (Auto) 12/20/19 12/20/19 12/20/19 05:26 06:02 18:17 WBC RBC Hgb Hct MCHC RDW MCH Lymph % (Auto) [place] % (Auto) [place] # Eos # [place] # (Auto) Eos # (Auto) Seg Neutrophils % Seg Neuts % (Manual) Baso # (Auto) Lymphocytes % (Manual) Monocytes % (Manual) Eosinophils % (Manual) Basophils % (Manual) Seg Neutrophils # Seg Neutrophils # Man Lymphocytes # (Manual) Monocytes # (Manual) Eosinophils # (Manual) Nucleated RBC % Basophils # (Manual) APTT Heparin Anti-Xa Level 0.19 L ABG pH POC ABG pO2 ABG pO2 ABG HCO3 ABG O2 Saturation ABG Base Excess POC ABG pCO2 ABG Hemoglobin ABG Oxyhemoglobin Oxyhemoglobin Sodium Potassium Chloride Carbon Dioxide BUN Creatinine Glucose POC Glucose 137 H 128 H Lactic Acid Calcium Phosphorus Magnesium AST ALT Lactate Dehydrogenase CK-MB (CK-2) C-Reactive Protein NT-Pro-B Natriuret Pep Total Protein Albumin Urine WBC (Auto) 12/20/19 12/21/19 12/21/19 23:34 05:31 05:31 WBC 12.7 H RBC 3.09 L Hgb 8.9 L Hct 27.4 L MCHC RDW 15.8 H MCH Lymph % (Auto) 12.1 L [place] % (Auto) 7.8 H [place] # Eos # [place] # (Auto) 1.0 H Eos # (Auto) Seg Neutrophils % 77.1 H Seg Neuts % (Manual) Baso # (Auto) Lymphocytes % (Manual) Monocytes % (Manual) Eosinophils % (Manual) Basophils % (Manual) Seg Neutrophils # 9.8 H Seg Neutrophils # Man Lymphocytes # (Manual) Monocytes # (Manual) Eosinophils # (Manual) Nucleated RBC % Basophils # (Manual) APTT Heparin Anti-Xa Level ABG pH POC ABG pO2 ABG pO2 ABG HCO3 ABG O2 Saturation ABG Base Excess POC ABG pCO2 ABG Hemoglobin ABG Oxyhemoglobin Oxyhemoglobin Sodium Potassium Chloride 96.9 L Carbon Dioxide 37 H BUN 27 H Creatinine 0.7 L Glucose 140 H POC Glucose 145 H Lactic Acid Calcium Phosphorus Magnesium AST ALT Lactate Dehydrogenase CK-MB (CK-2) C-Reactive Protein NT-Pro-B Natriuret Pep Total Protein Albumin Urine WBC (Auto) 12/21/19 12/21/19 12/21/19 05:38 10:13 11:51 WBC RBC Hgb Hct MCHC RDW MCH Lymph % (Auto) [place] % (Auto) [place] # Eos # [place] # (Auto) Eos # (Auto) Seg Neutrophils % Seg Neuts % (Manual) Baso # (Auto) Lymphocytes % (Manual) Monocytes % (Manual) Eosinophils % (Manual) Basophils % (Manual) Seg Neutrophils # Seg Neutrophils # Man Lymphocytes # (Manual) Monocytes # (Manual) Eosinophils # (Manual) Nucleated RBC % Basophils # (Manual) APTT 23.9 L Heparin Anti-Xa Level < 0.10 L ABG pH POC ABG pO2 ABG pO2 ABG HCO3 ABG O2 Saturation ABG Base Excess POC ABG pCO2 ABG Hemoglobin ABG Oxyhemoglobin Oxyhemoglobin Sodium Potassium Chloride Carbon Dioxide BUN Creatinine Glucose POC Glucose 151 H 145 H Lactic Acid Calcium Phosphorus Magnesium AST ALT Lactate Dehydrogenase CK-MB (CK-2) C-Reactive Protein NT-Pro-B Natriuret Pep Total Protein Albumin Urine WBC (Auto) 12/21/19 12/22/19 12/22/19 17:16 00:01 01:33 WBC RBC Hgb Hct MCHC RDW MCH Lymph % (Auto) [place] % (Auto) [place] # Eos # [place] # (Auto) Eos # (Auto) Seg Neutrophils % Seg Neuts % (Manual) Baso # (Auto) Lymphocytes % (Manual) Monocytes % (Manual) Eosinophils % (Manual) Basophils % (Manual) Seg Neutrophils # Seg Neutrophils # Man Lymphocytes # (Manual) Monocytes # (Manual) Eosinophils # (Manual) Nucleated RBC % Basophils # (Manual) APTT Heparin Anti-Xa Level 0.10 L ABG pH POC ABG pO2 ABG pO2 ABG HCO3 ABG O2 Saturation ABG Base Excess POC ABG pCO2 ABG Hemoglobin ABG Oxyhemoglobin Oxyhemoglobin Sodium Potassium Chloride Carbon Dioxide BUN Creatinine Glucose POC Glucose 167 H 179 H Lactic Acid Calcium Phosphorus Magnesium AST ALT Lactate Dehydrogenase CK-MB (CK-2) C-Reactive Protein NT-Pro-B Natriuret Pep Total Protein Albumin Urine WBC (Auto) 12/22/19 12/22/19 12/22/19 03:22 05:10 05:10 WBC 13.8 H RBC 3.20 L Hgb 8.9 L Hct 28.1 L MCHC RDW 15.9 H MCH Lymph % (Auto) [place] % (Auto) [place] # Eos # [place] # (Auto) Eos # (Auto) Seg Neutrophils % Seg Neuts % (Manual) Baso # (Auto) Lymphocytes % (Manual) Monocytes % (Manual) Eosinophils % (Manual) Basophils % (Manual) Seg Neutrophils # Seg Neutrophils # Man Lymphocytes # (Manual) Monocytes # (Manual) Eosinophils # (Manual) Nucleated RBC % Basophils # (Manual) APTT Heparin Anti-Xa Level ABG pH POC ABG pO2 52.3 L ABG pO2 ABG HCO3 ABG O2 Saturation ABG Base Excess POC ABG pCO2 52.9 H ABG Hemoglobin 10.7 L ABG Oxyhemoglobin 84 L Oxyhemoglobin Sodium Potassium Chloride 96.6 L Carbon Dioxide BUN 25 H Creatinine 0.7 L Glucose 129 H POC Glucose Lactic Acid Calcium Phosphorus Magnesium AST ALT Lactate Dehydrogenase CK-MB (CK-2) C-Reactive Protein NT-Pro-B Natriuret Pep Total Protein Albumin Urine WBC (Auto) 12/22/19 12/22/19 12/22/19 05:18 12:32 12:43 WBC RBC Hgb Hct MCHC RDW MCH Lymph % (Auto) [place] % (Auto) [place] # Eos # [place] # (Auto) Eos # (Auto) Seg Neutrophils % Seg Neuts % (Manual) Baso # (Auto) Lymphocytes % (Manual) Monocytes % (Manual) Eosinophils % (Manual) Basophils % (Manual) Seg Neutrophils # Seg Neutrophils # Man Lymphocytes # (Manual) Monocytes # (Manual) Eosinophils # (Manual) Nucleated RBC % Basophils # (Manual) APTT Heparin Anti-Xa Level 0.18 L ABG pH POC ABG pO2 ABG pO2 ABG HCO3 ABG O2 Saturation ABG Base Excess POC ABG pCO2 ABG Hemoglobin ABG Oxyhemoglobin Oxyhemoglobin Sodium Potassium Chloride Carbon Dioxide BUN Creatinine Glucose POC Glucose 131 H 208 H Lactic Acid Calcium Phosphorus Magnesium AST ALT Lactate Dehydrogenase CK-MB (CK-2) C-Reactive Protein NT-Pro-B Natriuret Pep Total Protein Albumin Urine WBC (Auto) 12/22/19 12/22/19 12/23/19 17:44 23:20 03:51 WBC 15.2 H RBC 3.43 L Hgb 9.6 L Hct 30.3 L MCHC RDW 15.9 H MCH Lymph % (Auto) [place] % (Auto) [place] # Eos # [place] # (Auto) Eos # (Auto) Seg Neutrophils % Seg Neuts % (Manual) Baso # (Auto) Lymphocytes % (Manual) Monocytes % (Manual) Eosinophils % (Manual) Basophils % (Manual) Seg Neutrophils # Seg Neutrophils # Man Lymphocytes # (Manual) Monocytes # (Manual) Eosinophils # (Manual) Nucleated RBC % Basophils # (Manual) APTT Heparin Anti-Xa Level ABG pH POC ABG pO2 ABG pO2 ABG HCO3 ABG O2 Saturation ABG Base Excess POC ABG pCO2 ABG Hemoglobin ABG Oxyhemoglobin Oxyhemoglobin Sodium Potassium Chloride Carbon Dioxide BUN Creatinine Glucose POC Glucose 209 H 119 H Lactic Acid Calcium Phosphorus Magnesium AST ALT Lactate Dehydrogenase CK-MB (CK-2) C-Reactive Protein NT-Pro-B Natriuret Pep Total Protein Albumin Urine WBC (Auto) 12/23/19 12/23/19 12/23/19 03:51 05:31 12:09 WBC RBC Hgb Hct MCHC RDW MCH Lymph % (Auto) [place] % (Auto) [place] # Eos # [place] # (Auto) Eos # (Auto) Seg Neutrophils % Seg Neuts % (Manual) Baso # (Auto) Lymphocytes % (Manual) Monocytes % (Manual) Eosinophils % (Manual) Basophils % (Manual) Seg Neutrophils # Seg Neutrophils # Man Lymphocytes # (Manual) Monocytes # (Manual) Eosinophils # (Manual) Nucleated RBC % Basophils # (Manual) APTT Heparin Anti-Xa Level ABG pH POC ABG pO2 ABG pO2 ABG HCO3 ABG O2 Saturation ABG Base Excess POC ABG pCO2 ABG Hemoglobin ABG Oxyhemoglobin Oxyhemoglobin Sodium Potassium Chloride 97.2 L Carbon Dioxide 31 H BUN 23 H Creatinine 0.6 L Glucose 153 H POC Glucose 149 H 144 H Lactic Acid Calcium Phosphorus Magnesium AST ALT Lactate Dehydrogenase CK-MB (CK-2) C-Reactive Protein NT-Pro-B Natriuret Pep Total Protein Albumin Urine WBC (Auto) 12/23/19 12/23/19 12/23/19 15:30 17:49 23:31 WBC RBC Hgb Hct MCHC RDW MCH Lymph % (Auto) [place] % (Auto) [place] # Eos # [place] # (Auto) Eos # (Auto) Seg Neutrophils % Seg Neuts % (Manual) Baso # (Auto) Lymphocytes % (Manual) Monocytes % (Manual) Eosinophils % (Manual) Basophils % (Manual) Seg Neutrophils # Seg Neutrophils # Man Lymphocytes # (Manual) Monocytes # (Manual) Eosinophils # (Manual) Nucleated RBC % Basophils # (Manual) APTT Heparin Anti-Xa Level 0.21 L ABG pH POC ABG pO2 ABG pO2 ABG HCO3 ABG O2 Saturation ABG Base Excess POC ABG pCO2 ABG Hemoglobin ABG Oxyhemoglobin Oxyhemoglobin Sodium Potassium Chloride Carbon Dioxide BUN Creatinine Glucose POC Glucose 192 H 151 H Lactic Acid Calcium Phosphorus Magnesium AST ALT Lactate Dehydrogenase CK-MB (CK-2) C-Reactive Protein NT-Pro-B Natriuret Pep Total Protein Albumin Urine WBC (Auto) 12/24/19 12/24/19 12/24/19 05:34 12:13 16:50 WBC RBC Hgb Hct MCHC RDW MCH Lymph % (Auto) [place] % (Auto) [place] # Eos # [place] # (Auto) Eos # (Auto) Seg Neutrophils % Seg Neuts % (Manual) Baso # (Auto) Lymphocytes % (Manual) Monocytes % (Manual) Eosinophils % (Manual) Basophils % (Manual) Seg Neutrophils # Seg Neutrophils # Man Lymphocytes # (Manual) Monocytes # (Manual) Eosinophils # (Manual) Nucleated RBC % Basophils # (Manual) APTT Heparin Anti-Xa Level 0.16 L ABG pH POC ABG pO2 ABG pO2 ABG HCO3 ABG O2 Saturation ABG Base Excess POC ABG pCO2 ABG Hemoglobin ABG Oxyhemoglobin Oxyhemoglobin Sodium Potassium Chloride Carbon Dioxide BUN Creatinine Glucose POC Glucose 145 H 124 H Lactic Acid Calcium Phosphorus Magnesium AST ALT Lactate Dehydrogenase CK-MB (CK-2) C-Reactive Protein NT-Pro-B Natriuret Pep Total Protein Albumin Urine WBC (Auto) 12/24/19 12/25/19 12/25/19 17:53 00:14 04:18 WBC 12.9 H RBC 3.30 L Hgb 9.1 L Hct 28.8 L MCHC RDW 16.4 H MCH Lymph % (Auto) [place] % (Auto) 7.8 H [place] # Eos # [place] # (Auto) 1.0 H Eos # (Auto) Seg Neutrophils % 75.5 H Seg Neuts % (Manual) Baso # (Auto) Lymphocytes % (Manual) Monocytes % (Manual) Eosinophils % (Manual) Basophils % (Manual) Seg Neutrophils # 9.7 H Seg Neutrophils # Man Lymphocytes # (Manual) Monocytes # (Manual) Eosinophils # (Manual) Nucleated RBC % Basophils # (Manual) APTT Heparin Anti-Xa Level ABG pH POC ABG pO2 ABG pO2 ABG HCO3 ABG O2 Saturation ABG Base Excess POC ABG pCO2 ABG Hemoglobin ABG Oxyhemoglobin Oxyhemoglobin Sodium Potassium Chloride Carbon Dioxide BUN Creatinine Glucose POC Glucose 164 H 148 H Lactic Acid Calcium Phosphorus Magnesium AST ALT Lactate Dehydrogenase CK-MB (CK-2) C-Reactive Protein NT-Pro-B Natriuret Pep Total Protein Albumin Urine WBC (Auto) 12/25/19 12/25/19 12/25/19 04:18 05:38 11:44 WBC RBC Hgb Hct MCHC RDW MCH Lymph % (Auto) [place] % (Auto) [place] # Eos # [place] # (Auto) Eos # (Auto) Seg Neutrophils % Seg Neuts % (Manual) Baso # (Auto) Lymphocytes % (Manual) Monocytes % (Manual) Eosinophils % (Manual) Basophils % (Manual) Seg Neutrophils # Seg Neutrophils # Man Lymphocytes # (Manual) Monocytes # (Manual) Eosinophils # (Manual) Nucleated RBC % Basophils # (Manual) APTT Heparin Anti-Xa Level ABG pH POC ABG pO2 ABG pO2 ABG HCO3 ABG O2 Saturation ABG Base Excess POC ABG pCO2 ABG Hemoglobin ABG Oxyhemoglobin Oxyhemoglobin Sodium Potassium Chloride Carbon Dioxide 33 H BUN 27 H Creatinine 0.6 L Glucose 132 H POC Glucose 152 H 166 H Lactic Acid Calcium Phosphorus Magnesium AST ALT Lactate Dehydrogenase CK-MB (CK-2) C-Reactive Protein NT-Pro-B Natriuret Pep Total Protein Albumin Urine WBC (Auto) 12/25/19 12/26/19 12/26/19 18:29 00:17 00:18 WBC RBC Hgb Hct MCHC RDW MCH Lymph % (Auto) [place] % (Auto) [place] # Eos # [place] # (Auto) Eos # (Auto) Seg Neutrophils % Seg Neuts % (Manual) Baso # (Auto) Lymphocytes % (Manual) Monocytes % (Manual) Eosinophils % (Manual) Basophils % (Manual) Seg Neutrophils # Seg Neutrophils # Man Lymphocytes # (Manual) Monocytes # (Manual) Eosinophils # (Manual) Nucleated RBC % Basophils # (Manual) APTT Heparin Anti-Xa Level ABG pH POC ABG pO2 ABG pO2 ABG HCO3 ABG O2 Saturation ABG Base Excess POC ABG pCO2 ABG Hemoglobin ABG Oxyhemoglobin Oxyhemoglobin Sodium Potassium Chloride 97.8 L Carbon Dioxide BUN 25 H Creatinine 0.6 L Glucose 140 H POC Glucose 194 H 151 H Lactic Acid Calcium Phosphorus Magnesium AST ALT Lactate Dehydrogenase CK-MB (CK-2) C-Reactive Protein NT-Pro-B Natriuret Pep Total Protein Albumin Urine WBC (Auto) 12/26/19 12/26/19 12/26/19 05:36 11:41 17:50 WBC RBC Hgb Hct MCHC RDW MCH Lymph % (Auto) [place] % (Auto) [place] # Eos # [place] # (Auto) Eos # (Auto) Seg Neutrophils % Seg Neuts % (Manual) Baso # (Auto) Lymphocytes % (Manual) Monocytes % (Manual) Eosinophils % (Manual) Basophils % (Manual) Seg Neutrophils # Seg Neutrophils # Man Lymphocytes # (Manual) Monocytes # (Manual) Eosinophils # (Manual) Nucleated RBC % Basophils # (Manual) APTT Heparin Anti-Xa Level ABG pH POC ABG pO2 ABG pO2 ABG HCO3 ABG O2 Saturation ABG Base Excess POC ABG pCO2 ABG Hemoglobin ABG Oxyhemoglobin Oxyhemoglobin Sodium Potassium Chloride Carbon Dioxide BUN Creatinine Glucose POC Glucose 156 H 148 H 139 H Lactic Acid Calcium Phosphorus Magnesium AST ALT Lactate Dehydrogenase CK-MB (CK-2) C-Reactive Protein NT-Pro-B Natriuret Pep Total Protein Albumin Urine WBC (Auto) 12/26/19 12/27/19 12/27/19 23:19 05:34 12:02 WBC RBC Hgb Hct MCHC RDW MCH Lymph % (Auto) [place] % (Auto) [place] # Eos # [place] # (Auto) Eos # (Auto) Seg Neutrophils % Seg Neuts % (Manual) Baso # (Auto) Lymphocytes % (Manual) Monocytes % (Manual) Eosinophils % (Manual) Basophils % (Manual) Seg Neutrophils # Seg Neutrophils # Man Lymphocytes # (Manual) Monocytes # (Manual) Eosinophils # (Manual) Nucleated RBC % Basophils # (Manual) APTT Heparin Anti-Xa Level ABG pH POC ABG pO2 ABG pO2 ABG HCO3 ABG O2 Saturation ABG Base Excess POC ABG pCO2 ABG Hemoglobin ABG Oxyhemoglobin Oxyhemoglobin Sodium Potassium Chloride Carbon Dioxide BUN Creatinine Glucose POC Glucose 161 H 145 H 157 H Lactic Acid Calcium Phosphorus Magnesium AST ALT Lactate Dehydrogenase CK-MB (CK-2) C-Reactive Protein NT-Pro-B Natriuret Pep Total Protein Albumin Urine WBC (Auto) 12/27/19 12/27/19 12/27/19 17:35 20:11 23:00 WBC RBC Hgb Hct MCHC RDW MCH Lymph % (Auto) [place] % (Auto) [place] # Eos # [place] # (Auto) Eos # (Auto) Seg Neutrophils % Seg Neuts % (Manual) Baso # (Auto) Lymphocytes % (Manual) Monocytes % (Manual) Eosinophils % (Manual) Basophils % (Manual) Seg Neutrophils # Seg Neutrophils # Man Lymphocytes # (Manual) Monocytes # (Manual) Eosinophils # (Manual) Nucleated RBC % Basophils # (Manual) APTT Heparin Anti-Xa Level 0.19 L ABG pH POC ABG pO2 ABG pO2 ABG HCO3 ABG O2 Saturation ABG Base Excess POC ABG pCO2 ABG Hemoglobin ABG Oxyhemoglobin Oxyhemoglobin Sodium Potassium Chloride Carbon Dioxide BUN Creatinine Glucose POC Glucose 158 H 155 H Lactic Acid Calcium Phosphorus Magnesium AST ALT Lactate Dehydrogenase CK-MB (CK-2) C-Reactive Protein NT-Pro-B Natriuret Pep Total Protein Albumin Urine WBC (Auto) 12/27/19 12/28/19 12/28/19 23:45 02:41 02:41 WBC 13.0 H RBC 3.48 L Hgb 9.5 L Hct 30.6 L MCHC 31 L RDW 16.6 H MCH 27 L Lymph % (Auto) 13.0 L [place] % (Auto) 8.0 H [place] # Eos # [place] # (Auto) 1.0 H Eos # (Auto) Seg Neutrophils % 76.3 H Seg Neuts % (Manual) Baso # (Auto) Lymphocytes % (Manual) Monocytes % (Manual) Eosinophils % (Manual) Basophils % (Manual) Seg Neutrophils # 9.9 H Seg Neutrophils # Man Lymphocytes # (Manual) Monocytes # (Manual) Eosinophils # (Manual) Nucleated RBC % Basophils # (Manual) APTT Heparin Anti-Xa Level ABG pH POC ABG pO2 ABG pO2 ABG HCO3 ABG O2 Saturation ABG Base Excess POC ABG pCO2 ABG Hemoglobin ABG Oxyhemoglobin Oxyhemoglobin Sodium Potassium Chloride Carbon Dioxide BUN 22 H Creatinine 0.6 L Glucose 101 H POC Glucose 130 H Lactic Acid Calcium Phosphorus Magnesium AST ALT Lactate Dehydrogenase CK-MB (CK-2) C-Reactive Protein NT-Pro-B Natriuret Pep Total Protein Albumin Urine WBC (Auto) 12/28/19 12/28/19 12/28/19 06:00 12:34 18:13 WBC RBC Hgb Hct MCHC RDW MCH Lymph % (Auto) [place] % (Auto) [place] # Eos # [place] # (Auto) Eos # (Auto) Seg Neutrophils % Seg Neuts % (Manual) Baso # (Auto) Lymphocytes % (Manual) Monocytes % (Manual) Eosinophils % (Manual) Basophils % (Manual) Seg Neutrophils # Seg Neutrophils # Man Lymphocytes # (Manual) Monocytes # (Manual) Eosinophils # (Manual) Nucleated RBC % Basophils # (Manual) APTT Heparin Anti-Xa Level ABG pH POC ABG pO2 ABG pO2 ABG HCO3 ABG O2 Saturation ABG Base Excess POC ABG pCO2 ABG Hemoglobin ABG Oxyhemoglobin Oxyhemoglobin Sodium Potassium Chloride Carbon Dioxide BUN Creatinine Glucose POC Glucose 150 H 161 H 128 H Lactic Acid Calcium Phosphorus Magnesium AST ALT Lactate Dehydrogenase CK-MB (CK-2) C-Reactive Protein NT-Pro-B Natriuret Pep Total Protein Albumin Urine WBC (Auto) 12/28/19 12/29/19 12/29/19 23:36 05:21 11:40 WBC RBC Hgb Hct MCHC RDW MCH Lymph % (Auto) [place] % (Auto) [place] # Eos # [place] # (Auto) Eos # (Auto) Seg Neutrophils % Seg Neuts % (Manual) Baso # (Auto) Lymphocytes % (Manual) Monocytes % (Manual) Eosinophils % (Manual) Basophils % (Manual) Seg Neutrophils # Seg Neutrophils # Man Lymphocytes # (Manual) Monocytes # (Manual) Eosinophils # (Manual) Nucleated RBC % Basophils # (Manual) APTT Heparin Anti-Xa Level ABG pH POC ABG pO2 ABG pO2 ABG HCO3 ABG O2 Saturation ABG Base Excess POC ABG pCO2 ABG Hemoglobin ABG Oxyhemoglobin Oxyhemoglobin Sodium Potassium Chloride Carbon Dioxide BUN Creatinine Glucose POC Glucose 137 H 136 H 166 H Lactic Acid Calcium Phosphorus Magnesium AST ALT Lactate Dehydrogenase CK-MB (CK-2) C-Reactive Protein NT-Pro-B Natriuret Pep Total Protein Albumin Urine WBC (Auto) Chest x-ray: image reviewed Allied health notes reviewed: RT
[2019-12-29] MEDS ORDERED: FUROSEMIDE 40 MG/4 ML INJ IV ONE (13:00)
--- NOTE | 2019-12-29 15:10 | Progress Note ---
Assessment and Plan -Acute LLL PE -Acute RLE DVT -Persistent fevers; secondary to sepsis and acute PE/DVT -Severe sepsis; secondary to bilateral pneumonia, persistent fevers -Acute hypoxemic respiratory failure, on vent unable to wean -Bilateral pneumonia, community acquired, -Aspiration Pneumonia -Sustained SVT, on amiodarone -Acute on chronic systolic congestive heart failure -History of cerebrovascular accident. -Tobacco use disorder -Alcohol abuse with DT -Acute chronic obstructive pulmonary disease exacerbation. -Hypertension and hypertensive urgency at presentation. -History of arthritis. -Paroxysmal atrial fibrillation -Leukocytosis with possible sepsis. -Lactic acidosis. -Bleeding from ET tube -Oropharyngeal dysphagia -S/P Knee surgery -History of peptic Ulcer Surgery -DVT prophylaxis COVID-19 test; 11/24/2019; negative 11/26/2019; negative Plan Continue ventilatory support Wean as tolerated as per critical care Completed abx, ID following Aspiration precautions Continue amiodarone and metoprolol for suppression of paroxysmal atrial fibrillation. Anticoagulation currently with intravenous heparin. thoracentesis cancelled as not much fluid to drawn Will need trach and PEG DVT/GI prophy Heparin/Protonix Plan of care reviewed with the patient's nurse Closely monitor the patient and adjust management as needed The high probability of a clinically significant, sudden or life threatening deterioration of the [Respiratory, cardiovascular & neurological] system(s) required my full and direct attention, intervention and personal management. The aggregate critical care time was [33] minutes without overlap. Time includes spent on [x] Data Review and interpretation [x] Patient assessment and monitoring of vital signs [x] Documentation [x] Medication orders and management Brief History Patient is a 64-year-old male with known history of hypertension, COPD, history of coronary artery disease, CHF with ejection fraction of 20 to 25% in August 2018 presenting to the emergency room via EMS complaining of shortness of breath. Patient was found to be hypoxic and in respiratory distress. Patient was placed on CPAP in route to the hospital. Oxygen saturation was said to be 88%. Started on Solu-Medrol, Lasix and magnesium in ED, patient was also found to be lethargic with an oxygen saturation of about 91% on CPAP. He was subsequently intubated. Work-up in the emergency room including chest x-ray reveals bilateral pneumonia. He had an elevated white count of 14 and also had an elevated BNP. Patient admitted to the ICU and placed on empiric IV antibiotics for pneumonia. He tested negative for COVID-19 and placed on isolation precautions. Remains intubated on ventilatory support, sputum cultures positive for Pseudomonas, ID treated with cefepime and Vanco. His hospital course became complicated with acute PE, DVT, paroxysmal atrial fib - placed on heparin drip. Patient difficult to wean off, remains intubated. 11/25: Leukocytosis improving. Continue current management anticipate extubation possible today. 11/26. Still intubated. Failed SBT yesterday. Repeat COVID-19 test is negative. 11/27. CT head ordered for possible neuro status change is negative. More responsive as the day progressed as per RN. Chest xray today shows interval improvement. He is still on antibiotics - will complete regimen today. 11/28: Considering difficult extubation and severe cardiomyopathy, will obtain cardiology consult. Aspiration precautions, tube feeds held, continue antibiotics. 11/29: Still with intermittent fever but improving imaging, continue diuresis. 11/30; Extremely agitated when placed on PSV- SVT, hypertension. Patiet acvadimo wledged that he drinks. IV Ativan given, CIWA protocol initiated. 12 lead ordered showed SVT, one dose of amiodarone ordered. continue to follow up cardiology recommendation 12/01: Patient remains on mechanical ventilation, getting SBT trial. Remains in SVT, started on amiodarone drip by cardiology. 12/02; patient is on mechanical ventilation and on spontaneous breathing trial. Cardiology started the patient on PO amiodarone. Patient is on cefepime. 12/03: patient is on mechanical ventilation. Cardiology started the patient on PO amiodarone for SVT. Patient is on cefepime, no fever overnight. 12/04: Patient is sedated and on mechanical ventilation. Patient had fever yesterday afternoon 102.3, ID changed his cefepime to meropenem. Heart rate is controlled, cardiology is following. Patient has paroxysmal atrial fibrillation and on amiodarone and metoprolol, subcu heparin for anticoagulation and will need oral anticoagulation once stable. 12/05: Sputum cultures positive for Pseudomonas, ID following 12/06; patient is febrile T-max 24 hours 102 F ,ID change antibiotics to cefepime and Vancomycin 12/07: resumed care. Na 149 today, start on 03/26 NS. cont current care 12/08: remains in a stable sinus rhythm and stable blood pressure, continue supportive care. wean off vent as tolerated. persistent fever - ordered CTA chest 12/09: noted bloody discharges from ET tube last night. CTA and LE venous doppler positive for acute PE and DVT. resume heparin drip, consult vascular for possible EKOS/ IVC filter. monitor h/h. cont SBT trial, wean off vent as tolerated. called but no answer 12/10: cont heparin drip for acute PE and DVT, follow vascular recommendation. monitor h/h, wean off vent as tolerated 12/11: o/n had bleeding from ET tube, cont to monitor h/h. vascular recommending medical Mx. called ; Nicolle Araiza [phone]. 12/12: H&H remained stable, patient on heparin drip. Discussed with yesterday. Discussed with critical care attending. Patient not tolerating SBT trial. Continue to wean off from vent as tolerated, follow clinically. Tolerating tube feeding 12/13: Continue heparin drip, wean off from vent as tolerated. Discussed with pulmonary attending if no improvement by the end of 3 weeks of intubation patient may need trach and PEG. Continue to provide supportive care, follow CBC and BMP. 12/14: Stop cefepime today, wean off from vent as tolerated. cont Heparin infusion, while monitoring for bleeding 12/15: Patient is not tolerating SBT trial, becoming apnic on CPAP. May need to place on trach and PEG. Continue heparin drip, monitor off antibiotics 12/16. Still maintained on vent. May need PEG and trach as her has been failed SBTs 12/17. Had low UO overnight. Started on tamsulosin. May need PEG and trach - defer to pulm. 12/18-. Plan for US thoracentesis to help with weaning. Remains on heparin drip for VTE. 12/20. Discussed with spouse today. He will get thoracentesis today. INR/PTT ordered. Heparin drip held. 12/21: planned for trach and PEG, cont supportive care, thoracentesis cancelled 12/22: cont supportive care, wean off from vent, daily SBT 12/23: tolerating SBT, possible extubation soon. cont supportive care 12/24: wean off vent as tolerated, daily SBT, follow clinically 12/25; cont to monitor, wean off vent as tolerated 12/26: Continue to monitor wean off vent as tolerated patient is tolerating SBT trial but not ready to wean off. 12/27: need trach and PEG, will f/u with GS, cont supportive care 12/28: pending trach/PEG Subjective Date of service: 12/29/19 Principal diagnosis: Ac hypoxemic resp failure; Pneumonia; PUI COVID-19; CHF; COPD; HTN Interval history: Patient seen and examined Patient intubated on mechanical ventilation Discussed with RN at the bedside H/H STABLE, patient remains on heparin drip Objective - Exam Narrative Exam: General appearance: Present: well-nourished, other (Intubated), opens eyes to names and follows minor command - EENT Eyes: Present: PERRL, EOM intact. Absent: scleral icterus ENT: clear oral mucosa, dentition normal - Neck Neck: Present: supple, normal ROM - Respiratory Respiratory effort: normal, mechanical ventilation Respiratory: bilateral: rales - Cardiovascular Rhythm: regular Heart Sounds: Present: S1 & S2, tachycardic. Absent: gallop, systolic murmur, diastolic murmur, rub - Extremities Extremities: no ischemia, pulses intact, pulses symmetrical, No edema, Full ROM Peripheral Pulses: within normal limits - Abdominal General gastrointestinal: Present: soft, non-tender, non-distended, normal bowel sounds. Absent: mass - Integumentary Integumentary: Present: clear, warm, dry. Absent: rash - Musculoskeletal Musculoskeletal: no joint swelling - Psychiatric Psychiatric: sedated Neurology: no focal deficits - Constitutional Vitals: Vital Signs - 12hr 12/29/19 12/29/19 12/29/19 04:00 04:20 05:00 Temperature 97.6 F Pulse Rate 90 90 91 H Pulse Rate [ 90 From Monitor] Respiratory 22 22 Rate Blood Pressure 107/80 104/62 101/62 O2 Sat by Pulse 96 95 97 Oximetry 12/29/19 12/29/19 12/29/19 05:32 06:00 07:00 Temperature Pulse Rate 94 H 85 91 H Pulse Rate [ From Monitor] Respiratory 19 18 Rate Blood Pressure 101/62 91/65 93/69 O2 Sat by Pulse 93 90 Oximetry 12/29/19 12/29/19 12/29/19 08:00 08:58 09:00 Temperature 98.2 F Pulse Rate 93 H 100 H 98 H Pulse Rate [ 90 From Monitor] Respiratory 22 26 H 25 H Rate Blood Pressure 102/71 102/71 115/82 O2 Sat by Pulse 94 93 92 Oximetry 12/29/19 12/29/19 12/29/19 10:00 11:00 12:00 Temperature 97.6 F Pulse Rate 94 H 98 H 100 H Pulse Rate [ 90 From Monitor] Respiratory 23 25 H 22 Rate Blood Pressure 102/73 110/83 112/76 O2 Sat by Pulse 89 93 96 Oximetry 12/29/19 12/29/19 13:00 14:00 Temperature Pulse Rate 98 H 99 H Pulse Rate [ From Monitor] Respiratory 18 24 Rate Blood Pressure 115/71 109/79 O2 Sat by Pulse Oximetry - Labs CBC & Chem 7: 12/30/19 03:58 12/30/19 03:58 Labs: Abnormal lab results 12/28/19 12/28/19 12/29/19 Range/Units 18:13 23:36 05:21 POC Glucose 128 H 137 H 136 H (70-105) 12/29/19 Range/Units 11:40 POC Glucose 166 H (70-105) HEART Score - HEART Score Troponin: Troponin T < 0.010 ng/mL (0.00-0.029) 11/24/19 02:53
[2019-12-29] MEDS: POLYETHYLENE GLYCOL 3350 17 GM POWDER PO SCH (21:24)
[2019-12-29] MEDS: TAMSULOSIN 0.4 MG CAP PO SCH (21:24)
[2019-12-30] MEDS: INSULIN LISPRO 100 UNIT/ML VIAL 3 mL SUB-Q SCH ×4 (00:18→18:04)
[2019-12-30] MEDS: HEPARIN/ 0.45% NACL DRIP 25,000 UNIT/500 ML BAG IV SCH ×2 (01:00→18:02)
--- NOTE | 2019-12-30 03:23 | XRay Report ---
CHEST 1 VIEW INDICATION: resp failure COMPARISON: 12/26/2019 FINDINGS: Support devices: Unchanged. Heart: Stable. Lungs/Pleura: Extensive bilateral pleural-parenchymal disease, unchanged. IMPRESSION: 1. No significant change. Signer Name: Stas Baig MD Signed: 12/30/2019 3:19 AM Workstation Name: [id number]
[2019-12-30] MEDS: fentaNYL 100 MCG/2 ML INJ IV PRN ×2 (04:37→09:44)
[2019-12-30 04:54] LABS: Hematocrit 30.7 % (35.5-45.6); Hemoglobin 9.8 gm/dl (11.8-15.2); Mean Corpuscular HGB Conc 32 % (32-34); Mean Corpuscular Volume 87 fl (84-94); Platelet Count 269 K/mm3 (140-440); Red Blood Count 3.54 M/mm3 (3.65-5.03); Red Cell Distribution Width 16.8 % (13.2-15.2)
[2019-12-30 05:03] LABS: BUN/Creatinine Ratio 33; Blood Urea Nitrogen 26 mg/dL (9-20); Calcium 9.4 mg/dL (8.4-10.2); Hemolysis Index 0
[2019-12-30 05:08] LABS: ABG Base Excess 4.8 mmol/L (-2.0-3.0); ABG HCO3 29.8 mmol/L (20.0-26.0); ABG PH 7.439 pH Units (7.350-7.450); ABG PO2 89.3 mm Hg (80.0-90.0)
[2019-12-30] MEDS: METOPROLOL TARTRATE 50 MG TAB PO SCH ×3 (05:21→22:24)
[2019-12-30 05:22] LABS: ABG Methemoglobin 0.4 % (0.0-1.5); ABG Oxygen Saturation 96.3 % (95.0-99.0)
[2019-12-30] MEDS: LORazepam 2 MG/ML VIAL IV PRN ×3 (07:30→19:30)
[2019-12-30] MEDS: HALOPERIDOL LACTATE 5 MG/1 ML INJ IV PRN (08:03)
[2019-12-30] MEDS: DOCUSATE SODIUM 100 MG/10 ML ORAL LIQD FEEDTUBE SCH ×2 (09:44→22:24)
[2019-12-30] MEDS: QUEtiapine 200 MG TAB PO SCH ×2 (09:44→22:25)
[2019-12-30] MEDS: AMIODARONE 200 MG TAB PO SCH ×2 (09:44→22:24)
[2019-12-30] MEDS: FAMOTIDINE 20 MG TAB PO SCH ×2 (09:44→22:25)
--- NOTE | 2019-12-30 10:02 | Event Note ---
Date: 12/30/19 Patient's chart reviewed. COVID testing on 12/29/2019 is negative. Tracheostomy and PEG tube placement scheduled for Sunday 12/31. Consent already obtained and on the chart.
[2019-12-30] MEDS ORDERED: fentaNYL 100 MCG/2 ML INJ IV PRN (10:46)
--- NOTE | 2019-12-30 11:30 | Progress Note ---
Assessment and Plan Acute hypoxemic respiratory failure Bilateral pneumonia, community acquired. Acute congestive heart failure exacerbation. History of cerebrovascular accident. Acute chronic obstructive pulmonary disease exacerbation. Hypertension and hypertensive urgency at presentation. History of arthritis. Oropharyngeal dysphagia Right Lext DVT Pulmonary embolism Monitor off antibiotics, trend WCC and temperature curve Gentle diuretics as tolerated by renal function and hemodynamics Discussed with General Surgeon, plan for trach and PEG on Saturday Continue with daily PSV as tolerated. If he tolerates it and meets weaning criteria prior to trach, will liberate from MVS - continue to monitor renal function, hemodynamics and electrolyte profile - continue to wean oxygen for O2 sats > 90% - continue bronchodilators with pulmonary hygiene per RT - VAP bundle addressed (Aspiration precautions, HOB >40) - continue to wean per pulmonary driven protocols - continue prn analgesia per CPOT score - follow clinically re: fever curves / trend WBC - Avoid delirium (no benzodiazepines if they can be avoided) - Enteral nutrition at goal rate as tolerated - continue accuchecks with glycemic control per SSI for target blood glucose goal of 140-180 mg/dL while critically ill; Avoid hypoglycemia - continue VTE prophylaxis with Heparin therapeutic dosing for PE/DVT - continue stress ulcer prophylaxis with Famotidine BID - continue mobility protocols for pressure ulcer prophylaxis - continue fall precautions - Supportive transfusions as indicated to keep HgB>7g/dL - Continue to monitor neurologic function - Continue chronic home medications as clinically indicated - Continue all supportive care CONDITION: CRITICAL PROGNOSIS: GUARDED CODE STATUS: FULL CODE The high probability of a clinically significant, sudden or life threatening deterioration of the [Respiratory, cardiovascular & neurological] system(s) required my full and direct attention, intervention and personal management. The aggregate critical care time was [33] minutes without overlap. Time includes spent on [x] Data Review and interpretation [x] Patient assessment and monitoring of vital signs [x] Documentation [x] Medication orders and management Subjective Date of service: 12/30/19 Principal diagnosis: Ac hypoxemic resp failure; Pneumonia; PUI COVID-19; CHF; COPD; HTN Interval history: Patient is seen today for: Acute hypoxemic respiratory failure; Adan. Pneumonia (CAP); PUI COVID-19 infection; AE-CHF; AE-COPD; H/O CVA; HTN; PE, DVT Seen and examined at bedside; 24 hour events reviewed; nursing and respiratory care staff consulted; no adverse overnight events reported to me; resting peacefully in bed; ETT in place. No asynchrony, No episodes of vomiting. Awake and alert, motioning and mouthing words. No fevers. Plan to place trach, Objective Vital Signs - 12hr 12/30/19 12/30/19 12/30/19 00:00 00:44 01:00 Temperature 99.6 F Pulse Rate 92 H 94 H 90 Pulse Rate [ 92 H From Monitor] Respiratory 26 H 26 H Rate Blood Pressure 100/71 100/71 110/71 O2 Sat by Pulse 98 95 95 Oximetry 12/30/19 12/30/19 12/30/19 02:00 03:00 04:00 Temperature 99.0 F Pulse Rate 102 H 102 H 112 H Pulse Rate [ 112 H From Monitor] Respiratory 54 H 26 H 29 H Rate Blood Pressure 117/84 118/76 131/89 O2 Sat by Pulse 94 91 Oximetry 12/30/19 12/30/19 12/30/19 04:20 05:00 05:21 Temperature Pulse Rate 103 H 94 H 93 H Pulse Rate [ From Monitor] Respiratory 24 Rate Blood Pressure 131/89 107/73 107/73 O2 Sat by Pulse 94 91 Oximetry 12/30/19 12/30/19 12/30/19 06:01 07:01 07:58 Temperature Pulse Rate 98 H 103 H 111 H Pulse Rate [ From Monitor] Respiratory 32 H 34 H Rate Blood Pressure 110/81 134/103 128/98 O2 Sat by Pulse 89 86 95 Oximetry 12/30/19 12/30/19 12/30/19 08:00 09:00 10:00 Temperature 98.9 F Pulse Rate 111 H 96 H 96 H Pulse Rate [ 104 H From Monitor] Respiratory 32 H 25 H 25 H Rate Blood Pressure 128/98 129/78 127/85 O2 Sat by Pulse 89 93 Oximetry 12/30/19 11:00 Temperature Pulse Rate 96 H Pulse Rate [ From Monitor] Respiratory 16 Rate Blood Pressure 126/81 O2 Sat by Pulse 89 Oximetry Constitutional: no acute distress, alert, other (elderly and obese male, normocephalic with mildly increased respiratory effort at rest on MVS) Eyes: non-icteric ENT: oropharynx moist, other (ETT 24 cm JASON) Neck: supple, no JVD Effort: normal Ascultation: Bilateral: clear, diminished breath sounds (bases R>L), rhonchi Percussion: Bilateral: not dull Cardiovascular: irregular rhythm Gastrointestinal: normoactive bowel sounds, soft, non-tender, non-distended Integumentary: normal Extremities: no cyanosis, pulses normal, no ischemia or petechiae, edema (bilateral upper ) Neurologic: normal mental status, non-focal exam (moves all extremities with extreme agitation), pupils equal and round, motor strength normal and Psychiatric: mood appropriate, affect normal CBC and BMP: 01/01/20 15:33 01/01/20 10:40 ABG, PT/INR, D-dimer: ABG ABG pH 7.439 pH Units (7.350-7.450) 12/30/19 04:59 POC ABG pCO2 52.9 mmHg (32.0-48.0) H 12/22/19 03:22 ABG pCO2 45.0 mm Hg 12/30/19 04:59 POC ABG pO2 52.3 mmHg (83-108) L 12/22/19 03:22 ABG pO2 89.3 mm Hg (80.0-90.0) 12/30/19 04:59 POC ABG HCO3 33.4 12/22/19 03:22 ABG O2 Saturation 96.3 % (95.0-99.0) 12/30/19 04:59 PT/INR, D-dimer PT 13.8 Sec. (12.2-14.9) 12/21/19 10:13 INR 1.05 (0.87-1.13) 12/21/19 10:13 Abnormal lab findings: Abnormal Labs 11/24/19 11/24/19 11/24/19 02:53 02:53 03:45 WBC 14.3 H RBC Hgb Hct MCHC RDW 17.2 H MCH Lymph % (Auto) [place]man % (Auto) [place]man # Eos # [place]man # (Auto) Eos # (Auto) Seg Neutrophils % Seg Neuts % (Manual) Baso # (Auto) Lymphocytes % (Manual) Monocytes % (Manual) Eosinophils % (Manual) Basophils % (Manual) Seg Neutrophils # Seg Neutrophils # Man 8.3 H Lymphocytes # (Manual) Monocytes # (Manual) 0.9 H Eosinophils # (Manual) Nucleated RBC % Basophils # (Manual) APTT Heparin Anti-Xa Level ABG pH 7.313 L POC ABG pO2 ABG pO2 102.8 H ABG HCO3 ABG O2 Saturation ABG Base Excess -2.9 L POC ABG pCO2 ABG Hemoglobin ABG Oxyhemoglobin Oxyhemoglobin 93.9 L Sodium Potassium Chloride Carbon Dioxide BUN Creatinine Glucose 195 H POC Glucose Lactic Acid Calcium Phosphorus Magnesium AST ALT Lactate Dehydrogenase CK-MB (CK-2) 4.3 H C-Reactive Protein NT-Pro-B Natriuret Pep 1181 H Total Protein Albumin Urine WBC (Auto) 11/24/19 11/24/19 11/24/19 04:53 04:53 10:37 WBC RBC Hgb Hct MCHC RDW MCH Lymph % (Auto) [place] % (Auto) [place] # Eos # [place] # (Auto) Eos # (Auto) Seg Neutrophils % Seg Neuts % (Manual) Baso # (Auto) Lymphocytes % (Manual) Monocytes % (Manual) Eosinophils % (Manual) Basophils % (Manual) Seg Neutrophils # Seg Neutrophils # Man Lymphocytes # (Manual) Monocytes # (Manual) Eosinophils # (Manual) Nucleated RBC % Basophils # (Manual) APTT Heparin Anti-Xa Level ABG pH POC ABG pO2 ABG pO2 ABG HCO3 ABG O2 Saturation ABG Base Excess POC ABG pCO2 ABG Hemoglobin ABG Oxyhemoglobin Oxyhemoglobin Sodium Potassium Chloride Carbon Dioxide BUN Creatinine Glucose 162 H POC Glucose Lactic Acid 2.40 H* 2.50 H* Calcium Phosphorus Magnesium AST ALT Lactate Dehydrogenase 240 H CK-MB (CK-2) C-Reactive Protein NT-Pro-B Natriuret Pep Total Protein Albumin Urine WBC (Auto) 11/24/19 11/24/19 11/24/19 12:21 14:50 19:54 WBC RBC Hgb Hct MCHC RDW MCH Lymph % (Auto) [place] % (Auto) [place] # Eos # [place] # (Auto) Eos # (Auto) Seg Neutrophils % Seg Neuts % (Manual) Baso # (Auto) Lymphocytes % (Manual) Monocytes % (Manual) Eosinophils % (Manual) Basophils % (Manual) Seg Neutrophils # Seg Neutrophils # Man Lymphocytes # (Manual) Monocytes # (Manual) Eosinophils # (Manual) Nucleated RBC % Basophils # (Manual) APTT Heparin Anti-Xa Level ABG pH POC ABG pO2 ABG pO2 ABG HCO3 ABG O2 Saturation ABG Base Excess POC ABG pCO2 ABG Hemoglobin ABG Oxyhemoglobin Oxyhemoglobin Sodium Potassium Chloride Carbon Dioxide BUN Creatinine Glucose POC Glucose 145 H 143 H 124 H Lactic Acid Calcium Phosphorus Magnesium AST ALT Lactate Dehydrogenase CK-MB (CK-2) C-Reactive Protein NT-Pro-B Natriuret Pep Total Protein Albumin Urine WBC (Auto) 11/25/19 11/25/19 11/25/19 00:18 03:18 05:11 WBC 13.7 H RBC Hgb Hct MCHC RDW 17.1 H MCH Lymph % (Auto) 10.8 L [place] % (Auto) 8.7 H [place] # 1.2 H Eos # [place] # (Auto) Eos # (Auto) Seg Neutrophils % 80.2 H Seg Neuts % (Manual) Baso # (Auto) Lymphocytes % (Manual) Monocytes % (Manual) Eosinophils % (Manual) Basophils % (Manual) Seg Neutrophils # 11.0 H Seg Neutrophils # Man Lymphocytes # (Manual) Monocytes # (Manual) Eosinophils # (Manual) Nucleated RBC % Basophils # (Manual) APTT Heparin Anti-Xa Level ABG pH 7.333 L POC ABG pO2 ABG pO2 61.2 L ABG HCO3 ABG O2 Saturation 90.2 L ABG Base Excess POC ABG pCO2 ABG Hemoglobin 13.7 L ABG Oxyhemoglobin Oxyhemoglobin 88.2 L Sodium Potassium Chloride Carbon Dioxide BUN Creatinine Glucose POC Glucose 109 H Lactic Acid Calcium Phosphorus Magnesium AST ALT Lactate Dehydrogenase CK-MB (CK-2) C-Reactive Protein NT-Pro-B Natriuret Pep Total Protein Albumin Urine WBC (Auto) 11/25/19 11/25/19 11/26/19 05:11 11:40 03:12 WBC RBC Hgb Hct MCHC RDW MCH Lymph % (Auto) [place] % (Auto) [place] # Eos # [place] # (Auto) Eos # (Auto) Seg Neutrophils % Seg Neuts % (Manual) Baso # (Auto) Lymphocytes % (Manual) Monocytes % (Manual) Eosinophils % (Manual) Basophils % (Manual) Seg Neutrophils # Seg Neutrophils # Man Lymphocytes # (Manual) Monocytes # (Manual) Eosinophils # (Manual) Nucleated RBC % Basophils # (Manual) APTT Heparin Anti-Xa Level ABG pH POC ABG pO2 ABG pO2 155.1 H ABG HCO3 27.8 H ABG O2 Saturation ABG Base Excess POC ABG pCO2 ABG Hemoglobin 12.2 L ABG Oxyhemoglobin Oxyhemoglobin Sodium Potassium Chloride Carbon Dioxide BUN 23 H Creatinine Glucose 110 H POC Glucose 108 H Lactic Acid Calcium Phosphorus Magnesium AST ALT Lactate Dehydrogenase CK-MB (CK-2) C-Reactive Protein NT-Pro-B Natriuret Pep Total Protein Albumin Urine WBC (Auto) 11/26/19 11/26/19 11/26/19 06:17 10:43 10:43 WBC 11.4 H RBC Hgb Hct MCHC RDW 17.1 H MCH Lymph % (Auto) [place] % (Auto) [place] # Eos # [place] # (Auto) Eos # (Auto) Seg Neutrophils % Seg Neuts % (Manual) Baso # (Auto) Lymphocytes % (Manual) Monocytes % (Manual) Eosinophils % (Manual) Basophils % (Manual) Seg Neutrophils # Seg Neutrophils # Man Lymphocytes # (Manual) Monocytes # (Manual) Eosinophils # (Manual) Nucleated RBC % Basophils # (Manual) APTT Heparin Anti-Xa Level ABG pH POC ABG pO2 ABG pO2 ABG HCO3 ABG O2 Saturation ABG Base Excess POC ABG pCO2 ABG Hemoglobin ABG Oxyhemoglobin Oxyhemoglobin Sodium Potassium Chloride Carbon Dioxide BUN 29 H Creatinine Glucose POC Glucose 107 H Lactic Acid Calcium Phosphorus Magnesium AST ALT Lactate Dehydrogenase CK-MB (CK-2) C-Reactive Protein NT-Pro-B Natriuret Pep Total Protein Albumin Urine WBC (Auto) 11/26/19 11/27/19 11/27/19 17:11 01:53 04:11 WBC RBC Hgb Hct MCHC RDW MCH Lymph % (Auto) [place] % (Auto) [place] # Eos # [place] # (Auto) Eos # (Auto) Seg Neutrophils % Seg Neuts % (Manual) Baso # (Auto) Lymphocytes % (Manual) Monocytes % (Manual) Eosinophils % (Manual) Basophils % (Manual) Seg Neutrophils # Seg Neutrophils # Man Lymphocytes # (Manual) Monocytes # (Manual) Eosinophils # (Manual) Nucleated RBC % Basophils # (Manual) APTT Heparin Anti-Xa Level ABG pH POC ABG pO2 ABG pO2 ABG HCO3 29.2 H ABG O2 Saturation ABG Base Excess 3.4 H POC ABG pCO2 ABG Hemoglobin 13.3 L ABG Oxyhemoglobin Oxyhemoglobin 94.5 L Sodium Potassium Chloride Carbon Dioxide BUN Creatinine Glucose POC Glucose 113 H 108 H Lactic Acid Calcium Phosphorus Magnesium AST ALT Lactate Dehydrogenase CK-MB (CK-2) C-Reactive Protein NT-Pro-B Natriuret Pep Total Protein Albumin Urine WBC (Auto) 11/27/19 11/28/19 11/28/19 05:27 05:00 05:25 WBC RBC Hgb Hct MCHC RDW MCH Lymph % (Auto) [place] % (Auto) [place] # Eos # [place] # (Auto) Eos # (Auto) Seg Neutrophils % Seg Neuts % (Manual) Baso # (Auto) Lymphocytes % (Manual) Monocytes % (Manual) Eosinophils % (Manual) Basophils % (Manual) Seg Neutrophils # Seg Neutrophils # Man Lymphocytes # (Manual) Monocytes # (Manual) Eosinophils # (Manual) Nucleated RBC % Basophils # (Manual) APTT Heparin Anti-Xa Level ABG pH POC ABG pO2 68.1 L ABG pO2 ABG HCO3 ABG O2 Saturation ABG Base Excess POC ABG pCO2 ABG Hemoglobin ABG Oxyhemoglobin 91.2 L Oxyhemoglobin Sodium Potassium Chloride Carbon Dioxide BUN Creatinine Glucose POC Glucose 111 H 110 H Lactic Acid Calcium Phosphorus Magnesium AST ALT Lactate Dehydrogenase CK-MB (CK-2) C-Reactive Protein NT-Pro-B Natriuret Pep Total Protein Albumin Urine WBC (Auto) 11/28/19 11/28/19 11/28/19 12:08 13:47 13:47 WBC 11.3 H RBC Hgb Hct MCHC RDW 16.1 H MCH Lymph % (Auto) [place] % (Auto) 9.9 H [place] # 1.1 H Eos # [place] # (Auto) Eos # (Auto) Seg Neutrophils % 71.4 H Seg Neuts % (Manual) Baso # (Auto) Lymphocytes % (Manual) Monocytes % (Manual) Eosinophils % (Manual) Basophils % (Manual) Seg Neutrophils # 8.1 H Seg Neutrophils # Man Lymphocytes # (Manual) Monocytes # (Manual) Eosinophils # (Manual) Nucleated RBC % Basophils # (Manual) APTT Heparin Anti-Xa Level ABG pH POC ABG pO2 ABG pO2 ABG HCO3 ABG O2 Saturation ABG Base Excess POC ABG pCO2 ABG Hemoglobin ABG Oxyhemoglobin Oxyhemoglobin Sodium Potassium Chloride Carbon Dioxide BUN 23 H Creatinine Glucose 123 H POC Glucose 112 H Lactic Acid Calcium Phosphorus Magnesium AST ALT Lactate Dehydrogenase CK-MB (CK-2) C-Reactive Protein NT-Pro-B Natriuret Pep Total Protein Albumin 3.7 L Urine WBC (Auto) 11/28/19 11/29/19 11/29/19 17:26 03:55 17:04 WBC RBC Hgb Hct MCHC RDW MCH Lymph % (Auto) [place] % (Auto) [place] # Eos # [place] # (Auto) Eos # (Auto) Seg Neutrophils % Seg Neuts % (Manual) Baso # (Auto) Lymphocytes % (Manual) Monocytes % (Manual) Eosinophils % (Manual) Basophils % (Manual) Seg Neutrophils # Seg Neutrophils # Man Lymphocytes # (Manual) Monocytes # (Manual) Eosinophils # (Manual) Nucleated RBC % Basophils # (Manual) APTT Heparin Anti-Xa Level ABG pH POC ABG pO2 ABG pO2 65.7 L ABG HCO3 28.3 H ABG O2 Saturation 93.9 L ABG Base Excess 3.6 H POC ABG pCO2 ABG Hemoglobin 13.3 L ABG Oxyhemoglobin Oxyhemoglobin 91.5 L Sodium Potassium Chloride Carbon Dioxide BUN Creatinine Glucose POC Glucose 123 H 119 H Lactic Acid Calcium Phosphorus Magnesium AST ALT Lactate Dehydrogenase CK-MB (CK-2) C-Reactive Protein NT-Pro-B Natriuret Pep Total Protein Albumin Urine WBC (Auto) 11/30/19 11/30/19 11/30/19 04:17 04:17 04:56 WBC 13.4 H RBC Hgb Hct MCHC RDW 15.6 H MCH Lymph % (Auto) [place] % (Auto) [place] # Eos # [place] # (Auto) Eos # (Auto) Seg Neutrophils % Seg Neuts % (Manual) Baso # (Auto) Lymphocytes % (Manual) Monocytes % (Manual) Eosinophils % (Manual) Basophils % (Manual) Seg Neutrophils # Seg Neutrophils # Man Lymphocytes # (Manual) Monocytes # (Manual) Eosinophils # (Manual) Nucleated RBC % Basophils # (Manual) APTT Heparin Anti-Xa Level ABG pH POC ABG pO2 ABG pO2 56.3 L ABG HCO3 29.3 H ABG O2 Saturation 91.5 L ABG Base Excess 4.7 H POC ABG pCO2 ABG Hemoglobin 12.1 L ABG Oxyhemoglobin Oxyhemoglobin 89.2 L Sodium 147 H Potassium Chloride Carbon Dioxide BUN 30 H Creatinine Glucose 124 H POC Glucose Lactic Acid Calcium Phosphorus Magnesium AST ALT Lactate Dehydrogenase CK-MB (CK-2) C-Reactive Protein NT-Pro-B Natriuret Pep Total Protein Albumin 3.8 L Urine WBC (Auto) 11/30/19 11/30/19 11/30/19 05:51 11:54 18:17 WBC RBC Hgb Hct MCHC RDW MCH Lymph % (Auto) [place] % (Auto) [place] # Eos # [place] # (Auto) Eos # (Auto) Seg Neutrophils % Seg Neuts % (Manual) Baso # (Auto) Lymphocytes % (Manual) Monocytes % (Manual) Eosinophils % (Manual) Basophils % (Manual) Seg Neutrophils # Seg Neutrophils # Man Lymphocytes # (Manual) Monocytes # (Manual) Eosinophils # (Manual) Nucleated RBC % Basophils # (Manual) APTT Heparin Anti-Xa Level ABG pH POC ABG pO2 ABG pO2 ABG HCO3 ABG O2 Saturation ABG Base Excess POC ABG pCO2 ABG Hemoglobin ABG Oxyhemoglobin Oxyhemoglobin Sodium Potassium Chloride Carbon Dioxide BUN Creatinine Glucose POC Glucose 127 H 115 H 143 H Lactic Acid Calcium Phosphorus Magnesium AST ALT Lactate Dehydrogenase CK-MB (CK-2) C-Reactive Protein NT-Pro-B Natriuret Pep Total Protein Albumin Urine WBC (Auto) 12/01/19 12/01/19 12/01/19 01:18 05:22 12:16 WBC RBC Hgb Hct MCHC RDW MCH Lymph % (Auto) [place] % (Auto) [place] # Eos # [place] # (Auto) Eos # (Auto) Seg Neutrophils % Seg Neuts % (Manual) Baso # (Auto) Lymphocytes % (Manual) Monocytes % (Manual) Eosinophils % (Manual) Basophils % (Manual) Seg Neutrophils # Seg Neutrophils # Man Lymphocytes # (Manual) Monocytes # (Manual) Eosinophils # (Manual) Nucleated RBC % Basophils # (Manual) APTT Heparin Anti-Xa Level ABG pH POC ABG pO2 ABG pO2 ABG HCO3 ABG O2 Saturation ABG Base Excess POC ABG pCO2 ABG Hemoglobin ABG Oxyhemoglobin Oxyhemoglobin Sodium Potassium 3.5 L Chloride 107.8 H Carbon Dioxide BUN 37 H Creatinine Glucose 157 H POC Glucose 118 H 148 H Lactic Acid Calcium 8.2 L D Phosphorus Magnesium AST 48 H ALT 60 H Lactate Dehydrogenase 194 H CK-MB (CK-2) C-Reactive Protein 8.50 H NT-Pro-B Natriuret Pep Total Protein 5.5 L Albumin 2.8 L Urine WBC (Auto) 12/01/19 12/02/19 12/02/19 18:04 00:05 05:16 WBC 11.4 H RBC Hgb Hct MCHC RDW 15.9 H MCH Lymph % (Auto) [place] % (Auto) 9.9 H [place] # 1.1 H Eos # [place] # (Auto) Eos # (Auto) Seg Neutrophils % 70.3 H Seg Neuts % (Manual) Baso # (Auto) Lymphocytes % (Manual) Monocytes % (Manual) Eosinophils % (Manual) Basophils % (Manual) Seg Neutrophils # 8.0 H Seg Neutrophils # Man Lymphocytes # (Manual) Monocytes # (Manual) Eosinophils # (Manual) Nucleated RBC % Basophils # (Manual) APTT Heparin Anti-Xa Level ABG pH POC ABG pO2 ABG pO2 ABG HCO3 ABG O2 Saturation ABG Base Excess POC ABG pCO2 ABG Hemoglobin ABG Oxyhemoglobin Oxyhemoglobin Sodium Potassium Chloride Carbon Dioxide BUN Creatinine Glucose POC Glucose 143 H 107 H Lactic Acid Calcium Phosphorus Magnesium AST ALT Lactate Dehydrogenase CK-MB (CK-2) C-Reactive Protein NT-Pro-B Natriuret Pep Total Protein Albumin Urine WBC (Auto) 12/02/19 12/02/19 12/02/19 05:16 06:03 11:52 WBC RBC Hgb Hct MCHC RDW MCH Lymph % (Auto) [place] % (Auto) [place] # Eos # [place] # (Auto) Eos # (Auto) Seg Neutrophils % Seg Neuts % (Manual) Baso # (Auto) Lymphocytes % (Manual) Monocytes % (Manual) Eosinophils % (Manual) Basophils % (Manual) Seg Neutrophils # Seg Neutrophils # Man Lymphocytes # (Manual) Monocytes # (Manual) Eosinophils # (Manual) Nucleated RBC % Basophils # (Manual) APTT Heparin Anti-Xa Level ABG pH POC ABG pO2 ABG pO2 ABG HCO3 ABG O2 Saturation ABG Base Excess POC ABG pCO2 ABG Hemoglobin ABG Oxyhemoglobin Oxyhemoglobin Sodium 146 H Potassium Chloride Carbon Dioxide BUN 28 H Creatinine Glucose 123 H POC Glucose 110 H 152 H Lactic Acid Calcium Phosphorus Magnesium AST ALT Lactate Dehydrogenase CK-MB (CK-2) C-Reactive Protein NT-Pro-B Natriuret Pep Total Protein Albumin Urine WBC (Auto) 12/02/19 12/02/19 12/02/19 12:58 17:58 23:36 WBC RBC Hgb Hct MCHC RDW MCH Lymph % (Auto) [place] % (Auto) [place] # Eos # [place] # (Auto) Eos # (Auto) Seg Neutrophils % Seg Neuts % (Manual) Baso # (Auto) Lymphocytes % (Manual) Monocytes % (Manual) Eosinophils % (Manual) Basophils % (Manual) Seg Neutrophils # Seg Neutrophils # Man Lymphocytes # (Manual) Monocytes # (Manual) Eosinophils # (Manual) Nucleated RBC % Basophils # (Manual) APTT Heparin Anti-Xa Level ABG pH POC ABG pO2 78.1 L ABG pO2 ABG HCO3 ABG O2 Saturation ABG Base Excess POC ABG pCO2 ABG Hemoglobin ABG Oxyhemoglobin Oxyhemoglobin Sodium Potassium Chloride Carbon Dioxide BUN Creatinine Glucose POC Glucose 120 H 123 H Lactic Acid Calcium Phosphorus Magnesium AST ALT Lactate Dehydrogenase CK-MB (CK-2) C-Reactive Protein NT-Pro-B Natriuret Pep Total Protein Albumin Urine WBC (Auto) 12/03/19 12/03/19 12/03/19 06:03 06:14 11:46 WBC RBC Hgb Hct MCHC RDW MCH Lymph % (Auto) [place] % (Auto) [place] # Eos # [place] # (Auto) Eos # (Auto) Seg Neutrophils % Seg Neuts % (Manual) Baso # (Auto) Lymphocytes % (Manual) Monocytes % (Manual) Eosinophils % (Manual) Basophils % (Manual) Seg Neutrophils # Seg Neutrophils # Man Lymphocytes # (Manual) Monocytes # (Manual) Eosinophils # (Manual) Nucleated RBC % Basophils # (Manual) APTT Heparin Anti-Xa Level ABG pH POC ABG pO2 ABG pO2 ABG HCO3 ABG O2 Saturation ABG Base Excess POC ABG pCO2 ABG Hemoglobin ABG Oxyhemoglobin Oxyhemoglobin Sodium Potassium Chloride Carbon Dioxide BUN Creatinine Glucose POC Glucose 142 H 130 H Lactic Acid Calcium Phosphorus Magnesium AST ALT Lactate Dehydrogenase CK-MB (CK-2) C-Reactive Protein NT-Pro-B Natriuret Pep Total Protein Albumin Urine WBC (Auto) 8.0 H 12/03/19 12/03/19 12/04/19 15:50 17:39 00:04 WBC RBC Hgb Hct MCHC RDW MCH Lymph % (Auto) [place] % (Auto) [place] # Eos # [place] # (Auto) Eos # (Auto) Seg Neutrophils % Seg Neuts % (Manual) Baso # (Auto) Lymphocytes % (Manual) Monocytes % (Manual) Eosinophils % (Manual) Basophils % (Manual) Seg Neutrophils # Seg Neutrophils # Man Lymphocytes # (Manual) Monocytes # (Manual) Eosinophils # (Manual) Nucleated RBC % Basophils # (Manual) APTT Heparin Anti-Xa Level ABG pH POC ABG pO2 ABG pO2 ABG HCO3 ABG O2 Saturation ABG Base Excess POC ABG pCO2 ABG Hemoglobin ABG Oxyhemoglobin Oxyhemoglobin Sodium Potassium Chloride Carbon Dioxide BUN Creatinine Glucose POC Glucose 146 H 133 H Lactic Acid Calcium Phosphorus 2.40 L Magnesium AST ALT Lactate Dehydrogenase CK-MB (CK-2) C-Reactive Protein NT-Pro-B Natriuret Pep Total Protein Albumin Urine WBC (Auto) 12/04/19 12/04/19 12/04/19 03:58 03:58 05:22 WBC 12.5 H RBC Hgb 11.2 L Hct 35.2 L MCHC RDW 16.0 H MCH Lymph % (Auto) [place] % (Auto) 9.6 H [place] # 1.2 H Eos # 0.5 H [place] # (Auto) Eos # (Auto) Seg Neutrophils % Seg Neuts % (Manual) Baso # (Auto) Lymphocytes % (Manual) Monocytes % (Manual) Eosinophils % (Manual) Basophils % (Manual) Seg Neutrophils # 8.6 H Seg Neutrophils # Man Lymphocytes # (Manual) Monocytes # (Manual) Eosinophils # (Manual) Nucleated RBC % Basophils # (Manual) APTT Heparin Anti-Xa Level ABG pH POC ABG pO2 ABG pO2 ABG HCO3 ABG O2 Saturation ABG Base Excess POC ABG pCO2 ABG Hemoglobin ABG Oxyhemoglobin Oxyhemoglobin Sodium 146 H Potassium Chloride 108.6 H Carbon Dioxide BUN 30 H Creatinine 0.7 L Glucose 121 H POC Glucose 132 H Lactic Acid Calcium Phosphorus Magnesium AST ALT Lactate Dehydrogenase CK-MB (CK-2) C-Reactive Protein NT-Pro-B Natriuret Pep Total Protein Albumin Urine WBC (Auto) 12/04/19 12/04/19 12/05/19 13:26 18:43 00:19 WBC RBC Hgb Hct MCHC RDW MCH Lymph % (Auto) [place] % (Auto) [place] # Eos # [place] # (Auto) Eos # (Auto) Seg Neutrophils % Seg Neuts % (Manual) Baso # (Auto) Lymphocytes % (Manual) Monocytes % (Manual) Eosinophils % (Manual) Basophils % (Manual) Seg Neutrophils # Seg Neutrophils # Man Lymphocytes # (Manual) Monocytes # (Manual) Eosinophils # (Manual) Nucleated RBC % Basophils # (Manual) APTT Heparin Anti-Xa Level ABG pH POC ABG pO2 ABG pO2 ABG HCO3 ABG O2 Saturation ABG Base Excess POC ABG pCO2 ABG Hemoglobin ABG Oxyhemoglobin Oxyhemoglobin Sodium Potassium Chloride Carbon Dioxide BUN Creatinine Glucose POC Glucose 185 H 156 H 150 H Lactic Acid Calcium Phosphorus Magnesium AST ALT Lactate Dehydrogenase CK-MB (CK-2) C-Reactive Protein NT-Pro-B Natriuret Pep Total Protein Albumin Urine WBC (Auto) 12/05/19 12/05/19 12/05/19 03:37 03:37 05:14 WBC 16.3 H RBC Hgb 11.4 L Hct MCHC RDW 15.6 H MCH Lymph % (Auto) 9.9 L [place] % (Auto) 9.7 H Kaufman # 1.6 H Eos # [place] # (Auto) Eos # (Auto) Seg Neutrophils % 78.0 H Seg Neuts % (Manual) Baso # (Auto) Lymphocytes % (Manual) Monocytes % (Manual) Eosinophils % (Manual) Basophils % (Manual) Seg Neutrophils # 12.7 H Seg Neutrophils # Man Lymphocytes # (Manual) Monocytes # (Manual) Eosinophils # (Manual) Nucleated RBC % Basophils # (Manual) APTT Heparin Anti-Xa Level ABG pH POC ABG pO2 ABG pO2 ABG HCO3 ABG O2 Saturation ABG Base Excess POC ABG pCO2 ABG Hemoglobin ABG Oxyhemoglobin Oxyhemoglobin Sodium 146 H Potassium Chloride 107.2 H Carbon Dioxide BUN 27 H Creatinine 0.7 L Glucose 171 H POC Glucose 168 H Lactic Acid Calcium Phosphorus Magnesium AST ALT Lactate Dehydrogenase CK-MB (CK-2) C-Reactive Protein NT-Pro-B Natriuret Pep Total Protein Albumin Urine WBC (Auto) 12/05/19 12/05/19 12/05/19 12:31 18:10 23:58 WBC RBC Hgb Hct MCHC RDW MCH Lymph % (Auto) [place]man % (Auto) Kaufman # Eos # [place]man # (Auto) Eos # (Auto) Seg Neutrophils % Seg Neuts % (Manual) Baso # (Auto) Lymphocytes % (Manual) Monocytes % (Manual) Eosinophils % (Manual) Basophils % (Manual) Seg Neutrophils # Seg Neutrophils # Man Lymphocytes # (Manual) Monocytes # (Manual) Eosinophils # (Manual) Nucleated RBC % Basophils # (Manual) APTT Heparin Anti-Xa Level ABG pH POC ABG pO2 ABG pO2 ABG HCO3 ABG O2 Saturation ABG Base Excess POC ABG pCO2 ABG Hemoglobin ABG Oxyhemoglobin Oxyhemoglobin Sodium Potassium Chloride Carbon Dioxide BUN Creatinine Glucose POC Glucose 159 H 198 H 115 H Lactic Acid Calcium Phosphorus Magnesium AST ALT Lactate Dehydrogenase CK-MB (CK-2) C-Reactive Protein NT-Pro-B Natriuret Pep Total Protein Albumin Urine WBC (Auto) 12/06/19 12/06/19 12/06/19 05:24 05:24 05:25 WBC 14.9 H RBC Hgb 10.8 L Hct 34.0 L MCHC RDW 15.6 H MCH Lymph % (Auto) 10.7 L [place]man % (Auto) 8.3 H [place] # 1.2 H Eos # [place] # (Auto) Eos # (Auto) Seg Neutrophils % 78.7 H Seg Neuts % (Manual) Baso # (Auto) Lymphocytes % (Manual) Monocytes % (Manual) Eosinophils % (Manual) Basophils % (Manual) Seg Neutrophils # 11.7 H Seg Neutrophils # Man Lymphocytes # (Manual) Monocytes # (Manual) Eosinophils # (Manual) Nucleated RBC % Basophils # (Manual) APTT Heparin Anti-Xa Level ABG pH POC ABG pO2 ABG pO2 ABG HCO3 ABG O2 Saturation ABG Base Excess POC ABG pCO2 ABG Hemoglobin ABG Oxyhemoglobin Oxyhemoglobin Sodium 148 H Potassium 5.1 H Chloride 107.6 H Carbon Dioxide BUN 27 H Creatinine 0.7 L Glucose 155 H POC Glucose 157 H Lactic Acid Calcium Phosphorus Magnesium AST ALT Lactate Dehydrogenase CK-MB (CK-2) C-Reactive Protein NT-Pro-B Natriuret Pep Total Protein Albumin Urine WBC (Auto) 12/07/19 12/07/19 12/07/19 00:13 05:34 11:33 WBC RBC Hgb Hct MCHC RDW MCH Lymph % (Auto) [place] % (Auto) [place]man # Eos # [place] # (Auto) Eos # (Auto) Seg Neutrophils % Seg Neuts % (Manual) Baso # (Auto) Lymphocytes % (Manual) Monocytes % (Manual) Eosinophils % (Manual) Basophils % (Manual) Seg Neutrophils # Seg Neutrophils # Man Lymphocytes # (Manual) Monocytes # (Manual) Eosinophils # (Manual) Nucleated RBC % Basophils # (Manual) APTT Heparin Anti-Xa Level ABG pH POC ABG pO2 ABG pO2 ABG HCO3 ABG O2 Saturation ABG Base Excess POC ABG pCO2 ABG Hemoglobin ABG Oxyhemoglobin Oxyhemoglobin Sodium Potassium Chloride Carbon Dioxide BUN Creatinine Glucose POC Glucose 142 H 111 H 169 H Lactic Acid Calcium Phosphorus Magnesium AST ALT Lactate Dehydrogenase CK-MB (CK-2) C-Reactive Protein NT-Pro-B Natriuret Pep Total Protein Albumin Urine WBC (Auto) 12/07/19 12/07/19 12/07/19 12:41 13:25 18:19 WBC 12.4 H RBC 3.53 L Hgb 10.2 L Hct 32.1 L MCHC RDW 15.3 H MCH Lymph % (Auto) 10.6 L [place] % (Auto) 7.8 H [place] # 1.0 H Eos # [place] # (Auto) Eos # (Auto) Seg Neutrophils % 77.6 H Seg Neuts % (Manual) Baso # (Auto) Lymphocytes % (Manual) Monocytes % (Manual) Eosinophils % (Manual) Basophils % (Manual) Seg Neutrophils # 9.6 H Seg Neutrophils # Man Lymphocytes # (Manual) Monocytes # (Manual) Eosinophils # (Manual) Nucleated RBC % Basophils # (Manual) APTT Heparin Anti-Xa Level ABG pH POC ABG pO2 ABG pO2 ABG HCO3 ABG O2 Saturation ABG Base Excess POC ABG pCO2 ABG Hemoglobin ABG Oxyhemoglobin Oxyhemoglobin Sodium 149 H Potassium Chloride 108.4 H Carbon Dioxide BUN 26 H Creatinine 0.6 L Glucose 149 H POC Glucose 164 H Lactic Acid Calcium Phosphorus Magnesium 2.60 H AST 121 H ALT 145 H Lactate Dehydrogenase CK-MB (CK-2) C-Reactive Protein NT-Pro-B Natriuret Pep Total Protein Albumin 2.6 L Urine WBC (Auto) 12/07/19 12/08/19 12/08/19 22:25 00:02 03:55 WBC 13.3 H RBC 3.40 L Hgb 9.7 L Hct 30.8 L MCHC 31 L RDW 15.5 H MCH Lymph % (Auto) [place] % (Auto) 8.1 H [place] # 1.1 H Eos # [place] # (Auto) Eos # (Auto) Seg Neutrophils % 73.0 H Seg Neuts % (Manual) Baso # (Auto) Lymphocytes % (Manual) Monocytes % (Manual) Eosinophils % (Manual) Basophils % (Manual) Seg Neutrophils # 9.7 H Seg Neutrophils # Man Lymphocytes # (Manual) Monocytes # (Manual) Eosinophils # (Manual) Nucleated RBC % Basophils # (Manual) APTT Heparin Anti-Xa Level 0.12 L ABG pH POC ABG pO2 ABG pO2 ABG HCO3 ABG O2 Saturation ABG Base Excess POC ABG pCO2 ABG Hemoglobin ABG Oxyhemoglobin Oxyhemoglobin Sodium Potassium Chloride Carbon Dioxide BUN Creatinine Glucose POC Glucose 151 H Lactic Acid Calcium Phosphorus Magnesium AST ALT Lactate Dehydrogenase CK-MB (CK-2) C-Reactive Protein NT-Pro-B Natriuret Pep Total Protein Albumin Urine WBC (Auto) 12/08/19 12/08/19 12/08/19 03:55 05:21 06:01 WBC RBC Hgb Hct MCHC RDW MCH Lymph % (Auto) [place] % (Auto) [place]man # Eos # [place] # (Auto) Eos # (Auto) Seg Neutrophils % Seg Neuts % (Manual) Baso # (Auto) Lymphocytes % (Manual) Monocytes % (Manual) Eosinophils % (Manual) Basophils % (Manual) Seg Neutrophils # Seg Neutrophils # Man Lymphocytes # (Manual) Monocytes # (Manual) Eosinophils # (Manual) Nucleated RBC % Basophils # (Manual) APTT Heparin Anti-Xa Level 0.20 L ABG pH POC ABG pO2 ABG pO2 ABG HCO3 ABG O2 Saturation ABG Base Excess POC ABG pCO2 ABG Hemoglobin ABG Oxyhemoglobin Oxyhemoglobin Sodium 149 H Potassium Chloride 108.0 H Carbon Dioxide BUN 28 H Creatinine 0.6 L Glucose 144 H POC Glucose 143 H Lactic Acid Calcium Phosphorus Magnesium AST 98 H ALT 145 H Lactate Dehydrogenase CK-MB (CK-2) C-Reactive Protein NT-Pro-B Natriuret Pep Total Protein 6.0 L Albumin 2.4 L Urine WBC (Auto) 12/08/19 12/08/19 12/08/19 12:08 18:11 23:53 WBC RBC Hgb Hct MCHC RDW MCH Lymph % (Auto) [place] % (Auto) [place] # Eos # [place] # (Auto) Eos # (Auto) Seg Neutrophils % Seg Neuts % (Manual) Baso # (Auto) Lymphocytes % (Manual) Monocytes % (Manual) Eosinophils % (Manual) Basophils % (Manual) Seg Neutrophils # Seg Neutrophils # Man Lymphocytes # (Manual) Monocytes # (Manual) Eosinophils # (Manual) Nucleated RBC % Basophils # (Manual) APTT Heparin Anti-Xa Level ABG pH POC ABG pO2 ABG pO2 ABG HCO3 ABG O2 Saturation ABG Base Excess POC ABG pCO2 ABG Hemoglobin ABG Oxyhemoglobin Oxyhemoglobin Sodium Potassium Chloride Carbon Dioxide BUN Creatinine Glucose POC Glucose 172 H 122 H 162 H Lactic Acid Calcium Phosphorus Magnesium AST ALT Lactate Dehydrogenase CK-MB (CK-2) C-Reactive Protein NT-Pro-B Natriuret Pep Total Protein Albumin Urine WBC (Auto) 12/09/19 12/09/19 12/09/19 04:03 04:03 05:53 WBC RBC Hgb 9.1 L Hct 28.9 L MCHC RDW MCH Lymph % (Auto) [place] % (Auto) [place] # Eos # [place] # (Auto) Eos # (Auto) Seg Neutrophils % Seg Neuts % (Manual) Baso # (Auto) Lymphocytes % (Manual) Monocytes % (Manual) Eosinophils % (Manual) Basophils % (Manual) Seg Neutrophils # Seg Neutrophils # Man Lymphocytes # (Manual) Monocytes # (Manual) Eosinophils # (Manual) Nucleated RBC % Basophils # (Manual) APTT Heparin Anti-Xa Level 0.15 L ABG pH POC ABG pO2 ABG pO2 ABG HCO3 ABG O2 Saturation ABG Base Excess POC ABG pCO2 ABG Hemoglobin ABG Oxyhemoglobin Oxyhemoglobin Sodium Potassium Chloride Carbon Dioxide BUN Creatinine Glucose POC Glucose 124 H Lactic Acid Calcium Phosphorus Magnesium AST ALT Lactate Dehydrogenase CK-MB (CK-2) C-Reactive Protein NT-Pro-B Natriuret Pep Total Protein Albumin Urine WBC (Auto) 12/09/19 12/09/19 12/10/19 09:43 12:41 00:13 WBC RBC Hgb Hct MCHC RDW MCH Lymph % (Auto) [place] % (Auto) [place] # Eos # [place] # (Auto) Eos # (Auto) Seg Neutrophils % Seg Neuts % (Manual) Baso # (Auto) Lymphocytes % (Manual) Monocytes % (Manual) Eosinophils % (Manual) Basophils % (Manual) Seg Neutrophils # Seg Neutrophils # Man Lymphocytes # (Manual) Monocytes # (Manual) Eosinophils # (Manual) Nucleated RBC % Basophils # (Manual) APTT Heparin Anti-Xa Level ABG pH POC ABG pO2 ABG pO2 ABG HCO3 ABG O2 Saturation ABG Base Excess POC ABG pCO2 ABG Hemoglobin ABG Oxyhemoglobin Oxyhemoglobin Sodium Potassium Chloride Carbon Dioxide BUN 25 H Creatinine 0.6 L Glucose 131 H POC Glucose 109 H 120 H Lactic Acid Calcium Phosphorus Magnesium AST ALT Lactate Dehydrogenase CK-MB (CK-2) C-Reactive Protein NT-Pro-B Natriuret Pep Total Protein Albumin Urine WBC (Auto) 12/10/19 12/10/19 12/10/19 04:14 04:14 12:00 WBC 13.3 H RBC 3.34 L Hgb 9.6 L Hct 30.4 L MCHC RDW 15.4 H MCH Lymph % (Auto) [place] % (Auto) [place] # Eos # [place] # (Auto) Eos # (Auto) Seg Neutrophils % Seg Neuts % (Manual) 75.0 H Baso # (Auto) Lymphocytes % (Manual) 13.0 L Monocytes % (Manual) 8.0 H Eosinophils % (Manual) Basophils % (Manual) 2.0 H Seg Neutrophils # Seg Neutrophils # Man 10.0 H Lymphocytes # (Manual) Monocytes # (Manual) 1.1 H Eosinophils # (Manual) Nucleated RBC % Basophils # (Manual) 0.3 H APTT Heparin Anti-Xa Level ABG pH POC ABG pO2 ABG pO2 ABG HCO3 ABG O2 Saturation ABG Base Excess POC ABG pCO2 ABG Hemoglobin ABG Oxyhemoglobin Oxyhemoglobin Sodium 147 H Potassium Chloride 108.3 H Carbon Dioxide BUN 21 H Creatinine 0.6 L Glucose 104 H POC Glucose 133 H Lactic Acid Calcium Phosphorus Magnesium AST ALT Lactate Dehydrogenase CK-MB (CK-2) C-Reactive Protein NT-Pro-B Natriuret Pep Total Protein Albumin Urine WBC (Auto) 12/10/19 12/10/19 12/11/19 18:44 21:20 00:08 WBC 14.9 H RBC 3.36 L Hgb 9.6 L Hct 30.5 L MCHC RDW 15.4 H MCH Lymph % (Auto) [place] % (Auto) [place] # Eos # [place] # (Auto) Eos # (Auto) Seg Neutrophils % Seg Neuts % (Manual) Baso # (Auto) Lymphocytes % (Manual) Monocytes % (Manual) Eosinophils % (Manual) Basophils % (Manual) Seg Neutrophils # Seg Neutrophils # Man Lymphocytes # (Manual) Monocytes # (Manual) Eosinophils # (Manual) Nucleated RBC % Basophils # (Manual) APTT Heparin Anti-Xa Level ABG pH POC ABG pO2 ABG pO2 ABG HCO3 ABG O2 Saturation ABG Base Excess POC ABG pCO2 ABG Hemoglobin ABG Oxyhemoglobin Oxyhemoglobin Sodium Potassium Chloride Carbon Dioxide BUN Creatinine Glucose POC Glucose 119 H 134 H Lactic Acid Calcium Phosphorus Magnesium AST ALT Lactate Dehydrogenase CK-MB (CK-2) C-Reactive Protein NT-Pro-B Natriuret Pep Total Protein Albumin Urine WBC (Auto) 12/11/19 12/11/19 12/11/19 03:54 07:28 08:36 WBC 11.9 H RBC 3.25 L Hgb 9.6 L Hct 29.2 L MCHC RDW 15.7 H MCH Lymph % (Auto) [place] % (Auto) [place] # Eos # [place] # (Auto) Eos # (Auto) Seg Neutrophils % Seg Neuts % (Manual) Baso # (Auto) Lymphocytes % (Manual) Monocytes % (Manual) Eosinophils % (Manual) Basophils % (Manual) Seg Neutrophils # Seg Neutrophils # Man Lymphocytes # (Manual) Monocytes # (Manual) Eosinophils # (Manual) Nucleated RBC % Basophils # (Manual) APTT Heparin Anti-Xa Level 0.10 L 0.16 L ABG pH POC ABG pO2 ABG pO2 ABG HCO3 ABG O2 Saturation ABG Base Excess POC ABG pCO2 ABG Hemoglobin ABG Oxyhemoglobin Oxyhemoglobin Sodium Potassium Chloride Carbon Dioxide BUN Creatinine Glucose POC Glucose Lactic Acid Calcium Phosphorus Magnesium AST ALT Lactate Dehydrogenase CK-MB (CK-2) C-Reactive Protein NT-Pro-B Natriuret Pep Total Protein Albumin Urine WBC (Auto) 12/11/19 12/11/19 12/11/19 08:36 11:45 17:15 WBC RBC Hgb Hct MCHC RDW MCH Lymph % (Auto) [place] % (Auto) [place] # Eos # [place] # (Auto) Eos # (Auto) Seg Neutrophils % Seg Neuts % (Manual) Baso # (Auto) Lymphocytes % (Manual) Monocytes % (Manual) Eosinophils % (Manual) Basophils % (Manual) Seg Neutrophils # Seg Neutrophils # Man Lymphocytes # (Manual) Monocytes # (Manual) Eosinophils # (Manual) Nucleated RBC % Basophils # (Manual) APTT Heparin Anti-Xa Level ABG pH POC ABG pO2 ABG pO2 ABG HCO3 ABG O2 Saturation ABG Base Excess POC ABG pCO2 ABG Hemoglobin ABG Oxyhemoglobin Oxyhemoglobin Sodium Potassium Chloride Carbon Dioxide BUN Creatinine 0.5 L Glucose 128 H POC Glucose 136 H 109 H Lactic Acid Calcium Phosphorus Magnesium AST ALT Lactate Dehydrogenase CK-MB (CK-2) C-Reactive Protein NT-Pro-B Natriuret Pep Total Protein Albumin Urine WBC (Auto) 12/12/19 12/12/19 12/12/19 00:03 05:53 05:53 WBC RBC Hgb 8.8 L Hct 27.6 L MCHC RDW MCH Lymph % (Auto) [place] % (Auto) [place] # Eos # [place] # (Auto) Eos # (Auto) Seg Neutrophils % Seg Neuts % (Manual) Baso # (Auto) Lymphocytes % (Manual) Monocytes % (Manual) Eosinophils % (Manual) Basophils % (Manual) Seg Neutrophils # Seg Neutrophils # Man Lymphocytes # (Manual) Monocytes # (Manual) Eosinophils # (Manual) Nucleated RBC % Basophils # (Manual) APTT Heparin Anti-Xa Level 0.22 L ABG pH POC ABG pO2 ABG pO2 ABG HCO3 ABG O2 Saturation ABG Base Excess POC ABG pCO2 ABG Hemoglobin ABG Oxyhemoglobin Oxyhemoglobin Sodium Potassium Chloride Carbon Dioxide BUN Creatinine Glucose POC Glucose 116 H Lactic Acid Calcium Phosphorus Magnesium AST ALT Lactate Dehydrogenase CK-MB (CK-2) C-Reactive Protein NT-Pro-B Natriuret Pep Total Protein Albumin Urine WBC (Auto) 12/12/19 12/12/19 12/12/19 09:38 12:18 17:44 WBC RBC Hgb Hct MCHC RDW MCH Lymph % (Auto) [place] % (Auto) [place] # Eos # [place] # (Auto) Eos # (Auto) Seg Neutrophils % Seg Neuts % (Manual) Baso # (Auto) Lymphocytes % (Manual) Monocytes % (Manual) Eosinophils % (Manual) Basophils % (Manual) Seg Neutrophils # Seg Neutrophils # Man Lymphocytes # (Manual) Monocytes # (Manual) Eosinophils # (Manual) Nucleated RBC % Basophils # (Manual) APTT Heparin Anti-Xa Level ABG pH POC ABG pO2 ABG pO2 ABG HCO3 ABG O2 Saturation ABG Base Excess POC ABG pCO2 ABG Hemoglobin ABG Oxyhemoglobin Oxyhemoglobin Sodium Potassium Chloride Carbon Dioxide BUN Creatinine Glucose POC Glucose 115 H 146 H 146 H Lactic Acid Calcium Phosphorus Magnesium AST ALT Lactate Dehydrogenase CK-MB (CK-2) C-Reactive Protein NT-Pro-B Natriuret Pep Total Protein Albumin Urine WBC (Auto) 12/12/19 12/13/19 12/13/19 23:33 05:32 05:32 WBC 13.1 H RBC 3.27 L Hgb 9.5 L Hct 29.3 L MCHC RDW 15.6 H MCH Lymph % (Auto) [place] % (Auto) [place] # Eos # [place] # (Auto) Eos # (Auto) Seg Neutrophils % Seg Neuts % (Manual) 74.0 H Baso # (Auto) Lymphocytes % (Manual) 8.0 L Monocytes % (Manual) 9.0 H Eosinophils % (Manual) 5.0 H Basophils % (Manual) Seg Neutrophils # Seg Neutrophils # Man 9.7 H Lymphocytes # (Manual) 1.0 L Monocytes # (Manual) 1.2 H Eosinophils # (Manual) 0.7 H Nucleated RBC % Basophils # (Manual) APTT Heparin Anti-Xa Level 0.20 L ABG pH POC ABG pO2 ABG pO2 ABG HCO3 ABG O2 Saturation ABG Base Excess POC ABG pCO2 ABG Hemoglobin ABG Oxyhemoglobin Oxyhemoglobin Sodium Potassium Chloride Carbon Dioxide BUN Creatinine Glucose POC Glucose 126 H Lactic Acid Calcium Phosphorus Magnesium AST ALT Lactate Dehydrogenase CK-MB (CK-2) C-Reactive Protein NT-Pro-B Natriuret Pep Total Protein Albumin Urine WBC (Auto) 12/13/19 12/13/19 12/13/19 05:32 05:46 11:57 WBC RBC Hgb Hct MCHC RDW MCH Lymph % (Auto) [place] % (Auto) [place] # Eos # [place] # (Auto) Eos # (Auto) Seg Neutrophils % Seg Neuts % (Manual) Baso # (Auto) Lymphocytes % (Manual) Monocytes % (Manual) Eosinophils % (Manual) Basophils % (Manual) Seg Neutrophils # Seg Neutrophils # Man Lymphocytes # (Manual) Monocytes # (Manual) Eosinophils # (Manual) Nucleated RBC % Basophils # (Manual) APTT Heparin Anti-Xa Level ABG pH POC ABG pO2 ABG pO2 ABG HCO3 ABG O2 Saturation ABG Base Excess POC ABG pCO2 ABG Hemoglobin ABG Oxyhemoglobin Oxyhemoglobin Sodium Potassium Chloride Carbon Dioxide 31 H BUN Creatinine 0.6 L Glucose 114 H POC Glucose 118 H 133 H Lactic Acid Calcium Phosphorus Magnesium AST ALT Lactate Dehydrogenase CK-MB (CK-2) C-Reactive Protein NT-Pro-B Natriuret Pep Total Protein Albumin Urine WBC (Auto) 12/13/19 12/13/19 12/14/19 17:44 23:46 05:32 WBC RBC Hgb Hct MCHC RDW MCH Lymph % (Auto) [place] % (Auto) [place] # Eos # [place] # (Auto) Eos # (Auto) Seg Neutrophils % Seg Neuts % (Manual) Baso # (Auto) Lymphocytes % (Manual) Monocytes % (Manual) Eosinophils % (Manual) Basophils % (Manual) Seg Neutrophils # Seg Neutrophils # Man Lymphocytes # (Manual) Monocytes # (Manual) Eosinophils # (Manual) Nucleated RBC % Basophils # (Manual) APTT Heparin Anti-Xa Level ABG pH POC ABG pO2 ABG pO2 ABG HCO3 ABG O2 Saturation ABG Base Excess POC ABG pCO2 ABG Hemoglobin ABG Oxyhemoglobin Oxyhemoglobin Sodium Potassium Chloride Carbon Dioxide BUN Creatinine Glucose POC Glucose 161 H 126 H 139 H Lactic Acid Calcium Phosphorus Magnesium AST ALT Lactate Dehydrogenase CK-MB (CK-2) C-Reactive Protein NT-Pro-B Natriuret Pep Total Protein Albumin Urine WBC (Auto) 12/14/19 12/14/19 12/14/19 06:03 06:03 09:37 WBC RBC Hgb 9.6 L Hct 30.4 L MCHC RDW MCH Lymph % (Auto) [place] % (Auto) [place] # Eos # [place] # (Auto) Eos # (Auto) Seg Neutrophils % Seg Neuts % (Manual) Baso # (Auto) Lymphocytes % (Manual) Monocytes % (Manual) Eosinophils % (Manual) Basophils % (Manual) Seg Neutrophils # Seg Neutrophils # Man Lymphocytes # (Manual) Monocytes # (Manual) Eosinophils # (Manual) Nucleated RBC % Basophils # (Manual) APTT Heparin Anti-Xa Level 0.24 L ABG pH POC ABG pO2 ABG pO2 ABG HCO3 ABG O2 Saturation ABG Base Excess POC ABG pCO2 ABG Hemoglobin ABG Oxyhemoglobin Oxyhemoglobin Sodium Potassium Chloride Carbon Dioxide BUN Creatinine 0.6 L Glucose 162 H POC Glucose Lactic Acid Calcium Phosphorus Magnesium AST 71 H ALT 118 H Lactate Dehydrogenase CK-MB (CK-2) C-Reactive Protein NT-Pro-B Natriuret Pep Total Protein 6.2 L Albumin 2.3 L Urine WBC (Auto) 12/14/19 12/14/19 12/15/19 12:06 18:18 00:19 WBC RBC Hgb Hct MCHC RDW MCH Lymph % (Auto) [place] % (Auto) [place] # Eos # [place] # (Auto) Eos # (Auto) Seg Neutrophils % Seg Neuts % (Manual) Baso # (Auto) Lymphocytes % (Manual) Monocytes % (Manual) Eosinophils % (Manual) Basophils % (Manual) Seg Neutrophils # Seg Neutrophils # Man Lymphocytes # (Manual) Monocytes # (Manual) Eosinophils # (Manual) Nucleated RBC % Basophils # (Manual) APTT Heparin Anti-Xa Level ABG pH POC ABG pO2 ABG pO2 ABG HCO3 ABG O2 Saturation ABG Base Excess POC ABG pCO2 ABG Hemoglobin ABG Oxyhemoglobin Oxyhemoglobin Sodium Potassium Chloride Carbon Dioxide BUN Creatinine Glucose POC Glucose 147 H 166 H 123 H Lactic Acid Calcium Phosphorus Magnesium AST ALT Lactate Dehydrogenase CK-MB (CK-2) C-Reactive Protein NT-Pro-B Natriuret Pep Total Protein Albumin Urine WBC (Auto) 12/15/19 12/15/19 12/15/19 05:28 05:29 05:29 WBC 14.9 H RBC 3.19 L Hgb 9.1 L Hct 28.7 L MCHC RDW 16.0 H MCH Lymph % (Auto) [place] % (Auto) [place] # Eos # [place] # (Auto) Eos # (Auto) Seg Neutrophils % Seg Neuts % (Manual) Baso # (Auto) Lymphocytes % (Manual) Monocytes % (Manual) Eosinophils % (Manual) Basophils % (Manual) Seg Neutrophils # Seg Neutrophils # Man Lymphocytes # (Manual) Monocytes # (Manual) Eosinophils # (Manual) Nucleated RBC % Basophils # (Manual) APTT Heparin Anti-Xa Level 0.19 L ABG pH POC ABG pO2 ABG pO2 ABG HCO3 ABG O2 Saturation ABG Base Excess POC ABG pCO2 ABG Hemoglobin ABG Oxyhemoglobin Oxyhemoglobin Sodium Potassium Chloride Carbon Dioxide BUN Creatinine 0.6 L Glucose 110 H POC Glucose Lactic Acid Calcium Phosphorus Magnesium AST ALT Lactate Dehydrogenase CK-MB (CK-2) C-Reactive Protein NT-Pro-B Natriuret Pep Total Protein Albumin Urine WBC (Auto) 12/15/19 12/15/19 12/15/19 05:53 11:50 17:26 WBC RBC Hgb Hct MCHC RDW MCH Lymph % (Auto) [place] % (Auto) [place] # Eos # [place] # (Auto) Eos # (Auto) Seg Neutrophils % Seg Neuts % (Manual) Baso # (Auto) Lymphocytes % (Manual) Monocytes % (Manual) Eosinophils % (Manual) Basophils % (Manual) Seg Neutrophils # Seg Neutrophils # Man Lymphocytes # (Manual) Monocytes # (Manual) Eosinophils # (Manual) Nucleated RBC % Basophils # (Manual) APTT Heparin Anti-Xa Level ABG pH POC ABG pO2 ABG pO2 ABG HCO3 ABG O2 Saturation ABG Base Excess POC ABG pCO2 ABG Hemoglobin ABG Oxyhemoglobin Oxyhemoglobin Sodium Potassium Chloride Carbon Dioxide BUN Creatinine Glucose POC Glucose 119 H 132 H 128 H Lactic Acid Calcium Phosphorus Magnesium AST ALT Lactate Dehydrogenase CK-MB (CK-2) C-Reactive Protein NT-Pro-B Natriuret Pep Total Protein Albumin Urine WBC (Auto) 12/15/19 12/16/19 12/16/19 23:11 05:30 05:46 WBC RBC Hgb 8.8 L Hct 27.9 L MCHC RDW MCH Lymph % (Auto) [place] % (Auto) [place] # Eos # [place] # (Auto) Eos # (Auto) Seg Neutrophils % Seg Neuts % (Manual) Baso # (Auto) Lymphocytes % (Manual) Monocytes % (Manual) Eosinophils % (Manual) Basophils % (Manual) Seg Neutrophils # Seg Neutrophils # Man Lymphocytes # (Manual) Monocytes # (Manual) Eosinophils # (Manual) Nucleated RBC % Basophils # (Manual) APTT Heparin Anti-Xa Level ABG pH POC ABG pO2 ABG pO2 ABG HCO3 ABG O2 Saturation ABG Base Excess POC ABG pCO2 ABG Hemoglobin ABG Oxyhemoglobin Oxyhemoglobin Sodium Potassium Chloride Carbon Dioxide BUN Creatinine Glucose POC Glucose 150 H 134 H Lactic Acid Calcium Phosphorus Magnesium AST ALT Lactate Dehydrogenase CK-MB (CK-2) C-Reactive Protein NT-Pro-B Natriuret Pep Total Protein Albumin Urine WBC (Auto) 12/16/19 12/16/19 12/16/19 05:46 05:46 11:44 WBC RBC Hgb Hct MCHC RDW MCH Lymph % (Auto) [place] % (Auto) [place] # Eos # [place] # (Auto) Eos # (Auto) Seg Neutrophils % Seg Neuts % (Manual) Baso # (Auto) Lymphocytes % (Manual) Monocytes % (Manual) Eosinophils % (Manual) Basophils % (Manual) Seg Neutrophils # Seg Neutrophils # Man Lymphocytes # (Manual) Monocytes # (Manual) Eosinophils # (Manual) Nucleated RBC % Basophils # (Manual) APTT Heparin Anti-Xa Level 0.20 L ABG pH POC ABG pO2 ABG pO2 ABG HCO3 ABG O2 Saturation ABG Base Excess POC ABG pCO2 ABG Hemoglobin ABG Oxyhemoglobin Oxyhemoglobin Sodium Potassium Chloride Carbon Dioxide 31 H BUN Creatinine 0.5 L Glucose 147 H POC Glucose 164 H Lactic Acid Calcium Phosphorus Magnesium AST ALT Lactate Dehydrogenase CK-MB (CK-2) C-Reactive Protein NT-Pro-B Natriuret Pep Total Protein Albumin Urine WBC (Auto) 12/16/19 12/16/19 12/17/19 17:17 23:49 05:30 WBC 13.9 H RBC 3.27 L Hgb 9.4 L Hct 29.2 L MCHC RDW 16.0 H MCH Lymph % (Auto) [place] % (Auto) 8.8 H [place] # Eos # [place] # (Auto) 1.2 H Eos # (Auto) 0.5 H Seg Neutrophils % 70.5 H Seg Neuts % (Manual) Baso # (Auto) 0.2 H Lymphocytes % (Manual) Monocytes % (Manual) Eosinophils % (Manual) Basophils % (Manual) Seg Neutrophils # 9.8 H Seg Neutrophils # Man Lymphocytes # (Manual) Monocytes # (Manual) Eosinophils # (Manual) Nucleated RBC % Basophils # (Manual) APTT Heparin Anti-Xa Level ABG pH POC ABG pO2 ABG pO2 ABG HCO3 ABG O2 Saturation ABG Base Excess POC ABG pCO2 ABG Hemoglobin ABG Oxyhemoglobin Oxyhemoglobin Sodium Potassium Chloride Carbon Dioxide BUN Creatinine Glucose POC Glucose 162 H 144 H Lactic Acid Calcium Phosphorus Magnesium AST ALT Lactate Dehydrogenase CK-MB (CK-2) C-Reactive Protein NT-Pro-B Natriuret Pep Total Protein Albumin Urine WBC (Auto) 12/17/19 12/17/19 12/17/19 05:30 06:06 11:50 WBC RBC Hgb Hct MCHC RDW MCH Lymph % (Auto) [place] % (Auto) [place] # Eos # [place] # (Auto) Eos # (Auto) Seg Neutrophils % Seg Neuts % (Manual) Baso # (Auto) Lymphocytes % (Manual) Monocytes % (Manual) Eosinophils % (Manual) Basophils % (Manual) Seg Neutrophils # Seg Neutrophils # Man Lymphocytes # (Manual) Monocytes # (Manual) Eosinophils # (Manual) Nucleated RBC % Basophils # (Manual) APTT Heparin Anti-Xa Level ABG pH POC ABG pO2 ABG pO2 ABG HCO3 ABG O2 Saturation ABG Base Excess POC ABG pCO2 ABG Hemoglobin ABG Oxyhemoglobin Oxyhemoglobin Sodium Potassium Chloride 97.4 L Carbon Dioxide 32 H BUN Creatinine 0.5 L Glucose 135 H POC Glucose 151 H 140 H Lactic Acid Calcium Phosphorus Magnesium AST ALT Lactate Dehydrogenase CK-MB (CK-2) C-Reactive Protein NT-Pro-B Natriuret Pep Total Protein Albumin Urine WBC (Auto) 12/17/19 12/17/19 12/18/19 17:50 23:46 05:17 WBC RBC Hgb 8.8 L Hct 28.0 L MCHC RDW MCH Lymph % (Auto) [place] % (Auto) [place] # Eos # [place] # (Auto) Eos # (Auto) Seg Neutrophils % Seg Neuts % (Manual) Baso # (Auto) Lymphocytes % (Manual) Monocytes % (Manual) Eosinophils % (Manual) Basophils % (Manual) Seg Neutrophils # Seg Neutrophils # Man Lymphocytes # (Manual) Monocytes # (Manual) Eosinophils # (Manual) Nucleated RBC % Basophils # (Manual) APTT Heparin Anti-Xa Level ABG pH POC ABG pO2 ABG pO2 ABG HCO3 ABG O2 Saturation ABG Base Excess POC ABG pCO2 ABG Hemoglobin ABG Oxyhemoglobin Oxyhemoglobin Sodium Potassium Chloride Carbon Dioxide BUN Creatinine Glucose POC Glucose 158 H 150 H Lactic Acid Calcium Phosphorus Magnesium AST ALT Lactate Dehydrogenase CK-MB (CK-2) C-Reactive Protein NT-Pro-B Natriuret Pep Total Protein Albumin Urine WBC (Auto) 12/18/19 12/18/19 12/18/19 05:17 05:49 11:12 WBC RBC Hgb Hct MCHC RDW MCH Lymph % (Auto) [place] % (Auto) [place] # Eos # [place] # (Auto) Eos # (Auto) Seg Neutrophils % Seg Neuts % (Manual) Baso # (Auto) Lymphocytes % (Manual) Monocytes % (Manual) Eosinophils % (Manual) Basophils % (Manual) Seg Neutrophils # Seg Neutrophils # Man Lymphocytes # (Manual) Monocytes # (Manual) Eosinophils # (Manual) Nucleated RBC % Basophils # (Manual) APTT Heparin Anti-Xa Level 0.16 L ABG pH POC ABG pO2 ABG pO2 ABG HCO3 ABG O2 Saturation ABG Base Excess POC ABG pCO2 ABG Hemoglobin ABG Oxyhemoglobin Oxyhemoglobin Sodium Potassium Chloride Carbon Dioxide BUN Creatinine Glucose POC Glucose 127 H 191 H Lactic Acid Calcium Phosphorus Magnesium AST ALT Lactate Dehydrogenase CK-MB (CK-2) C-Reactive Protein NT-Pro-B Natriuret Pep Total Protein Albumin Urine WBC (Auto) 12/18/19 12/18/19 12/19/19 17:03 20:16 00:08 WBC RBC Hgb Hct MCHC RDW MCH Lymph % (Auto) [place] % (Auto) [place] # Eos # [place] # (Auto) Eos # (Auto) Seg Neutrophils % Seg Neuts % (Manual) Baso # (Auto) Lymphocytes % (Manual) Monocytes % (Manual) Eosinophils % (Manual) Basophils % (Manual) Seg Neutrophils # Seg Neutrophils # Man Lymphocytes # (Manual) Monocytes # (Manual) Eosinophils # (Manual) Nucleated RBC % Basophils # (Manual) APTT Heparin Anti-Xa Level ABG pH POC ABG pO2 ABG pO2 ABG HCO3 ABG O2 Saturation ABG Base Excess POC ABG pCO2 ABG Hemoglobin ABG Oxyhemoglobin Oxyhemoglobin Sodium Potassium Chloride Carbon Dioxide BUN Creatinine Glucose POC Glucose 133 H 128 H 129 H Lactic Acid Calcium Phosphorus Magnesium AST ALT Lactate Dehydrogenase CK-MB (CK-2) C-Reactive Protein NT-Pro-B Natriuret Pep Total Protein Albumin Urine WBC (Auto) 12/19/19 12/19/19 12/19/19 04:45 04:45 05:35 WBC RBC Hgb Hct MCHC RDW MCH Lymph % (Auto) [place] % (Auto) [place] # Eos # [place] # (Auto) Eos # (Auto) Seg Neutrophils % Seg Neuts % (Manual) Baso # (Auto) Lymphocytes % (Manual) Monocytes % (Manual) Eosinophils % (Manual) Basophils % (Manual) Seg Neutrophils # Seg Neutrophils # Man Lymphocytes # (Manual) Monocytes # (Manual) Eosinophils # (Manual) Nucleated RBC % Basophils # (Manual) APTT Heparin Anti-Xa Level 0.17 L ABG pH POC ABG pO2 ABG pO2 ABG HCO3 ABG O2 Saturation ABG Base Excess POC ABG pCO2 ABG Hemoglobin ABG Oxyhemoglobin Oxyhemoglobin Sodium Potassium Chloride Carbon Dioxide BUN Creatinine Glucose POC Glucose 120 H Lactic Acid Calcium Phosphorus Magnesium AST ALT Lactate Dehydrogenase 228 H CK-MB (CK-2) C-Reactive Protein NT-Pro-B Natriuret Pep Total Protein Albumin Urine WBC (Auto) 12/19/19 12/19/19 12/19/19 09:20 11:32 11:32 WBC 14.6 H RBC 3.08 L Hgb 9.0 L Hct 26.8 L MCHC RDW 15.9 H MCH Lymph % (Auto) [place] % (Auto) [place] # Eos # [place] # (Auto) Eos # (Auto) Seg Neutrophils % Seg Neuts % (Manual) 82.0 H Baso # (Auto) Lymphocytes % (Manual) 10.0 L Monocytes % (Manual) Eosinophils % (Manual) Basophils % (Manual) Seg Neutrophils # Seg Neutrophils # Man 12.0 H Lymphocytes # (Manual) Monocytes # (Manual) 0.9 H Eosinophils # (Manual) Nucleated RBC % 1.0 H Basophils # (Manual) APTT Heparin Anti-Xa Level ABG pH 7.451 H POC ABG pO2 ABG pO2 62.6 L ABG HCO3 33.2 H ABG O2 Saturation 93.8 L ABG Base Excess 8.3 H POC ABG pCO2 ABG Hemoglobin 8.3 L ABG Oxyhemoglobin Oxyhemoglobin 91.9 L Sodium Potassium Chloride 95.0 L Carbon Dioxide 33 H BUN 22 H Creatinine 0.6 L Glucose 150 H POC Glucose Lactic Acid Calcium Phosphorus Magnesium AST ALT Lactate Dehydrogenase CK-MB (CK-2) C-Reactive Protein NT-Pro-B Natriuret Pep Total Protein 6.2 L Albumin 2.4 L Urine WBC (Auto) 12/19/19 12/19/19 12/20/19 11:56 18:17 00:09 WBC RBC Hgb Hct MCHC RDW MCH Lymph % (Auto) [place] % (Auto) [place] # Eos # [place] # (Auto) Eos # (Auto) Seg Neutrophils % Seg Neuts % (Manual) Baso # (Auto) Lymphocytes % (Manual) Monocytes % (Manual) Eosinophils % (Manual) Basophils % (Manual) Seg Neutrophils # Seg Neutrophils # Man Lymphocytes # (Manual) Monocytes # (Manual) Eosinophils # (Manual) Nucleated RBC % Basophils # (Manual) APTT Heparin Anti-Xa Level ABG pH POC ABG pO2 ABG pO2 ABG HCO3 ABG O2 Saturation ABG Base Excess POC ABG pCO2 ABG Hemoglobin ABG Oxyhemoglobin Oxyhemoglobin Sodium Potassium Chloride Carbon Dioxide BUN Creatinine Glucose POC Glucose 156 H 156 H 155 H Lactic Acid Calcium Phosphorus Magnesium AST ALT Lactate Dehydrogenase CK-MB (CK-2) C-Reactive Protein NT-Pro-B Natriuret Pep Total Protein Albumin Urine WBC (Auto) 12/20/19 12/20/19 12/20/19 05:26 06:02 18:17 WBC RBC Hgb Hct MCHC RDW MCH Lymph % (Auto) [place] % (Auto) [place] # Eos # [place] # (Auto) Eos # (Auto) Seg Neutrophils % Seg Neuts % (Manual) Baso # (Auto) Lymphocytes % (Manual) Monocytes % (Manual) Eosinophils % (Manual) Basophils % (Manual) Seg Neutrophils # Seg Neutrophils # Man Lymphocytes # (Manual) Monocytes # (Manual) Eosinophils # (Manual) Nucleated RBC % Basophils # (Manual) APTT Heparin Anti-Xa Level 0.19 L ABG pH POC ABG pO2 ABG pO2 ABG HCO3 ABG O2 Saturation ABG Base Excess POC ABG pCO2 ABG Hemoglobin ABG Oxyhemoglobin Oxyhemoglobin Sodium Potassium Chloride Carbon Dioxide BUN Creatinine Glucose POC Glucose 137 H 128 H Lactic Acid Calcium Phosphorus Magnesium AST ALT Lactate Dehydrogenase CK-MB (CK-2) C-Reactive Protein NT-Pro-B Natriuret Pep Total Protein Albumin Urine WBC (Auto) 12/20/19 12/21/19 12/21/19 23:34 05:31 05:31 WBC 12.7 H RBC 3.09 L Hgb 8.9 L Hct 27.4 L MCHC RDW 15.8 H MCH Lymph % (Auto) 12.1 L [place] % (Auto) 7.8 H [place] # Eos # [place] # (Auto) 1.0 H Eos # (Auto) Seg Neutrophils % 77.1 H Seg Neuts % (Manual) Baso # (Auto) Lymphocytes % (Manual) Monocytes % (Manual) Eosinophils % (Manual) Basophils % (Manual) Seg Neutrophils # 9.8 H Seg Neutrophils # Man Lymphocytes # (Manual) Monocytes # (Manual) Eosinophils # (Manual) Nucleated RBC % Basophils # (Manual) APTT Heparin Anti-Xa Level ABG pH POC ABG pO2 ABG pO2 ABG HCO3 ABG O2 Saturation ABG Base Excess POC ABG pCO2 ABG Hemoglobin ABG Oxyhemoglobin Oxyhemoglobin Sodium Potassium Chloride 96.9 L Carbon Dioxide 37 H BUN 27 H Creatinine 0.7 L Glucose 140 H POC Glucose 145 H Lactic Acid Calcium Phosphorus Magnesium AST ALT Lactate Dehydrogenase CK-MB (CK-2) C-Reactive Protein NT-Pro-B Natriuret Pep Total Protein Albumin Urine WBC (Auto) 12/21/19 12/21/19 12/21/19 05:38 10:13 11:51 WBC RBC Hgb Hct MCHC RDW MCH Lymph % (Auto) [place] % (Auto) [place] # Eos # [place] # (Auto) Eos # (Auto) Seg Neutrophils % Seg Neuts % (Manual) Baso # (Auto) Lymphocytes % (Manual) Monocytes % (Manual) Eosinophils % (Manual) Basophils % (Manual) Seg Neutrophils # Seg Neutrophils # Man Lymphocytes # (Manual) Monocytes # (Manual) Eosinophils # (Manual) Nucleated RBC % Basophils # (Manual) APTT 23.9 L Heparin Anti-Xa Level < 0.10 L ABG pH POC ABG pO2 ABG pO2 ABG HCO3 ABG O2 Saturation ABG Base Excess POC ABG pCO2 ABG Hemoglobin ABG Oxyhemoglobin Oxyhemoglobin Sodium Potassium Chloride Carbon Dioxide BUN Creatinine Glucose POC Glucose 151 H 145 H Lactic Acid Calcium Phosphorus Magnesium AST ALT Lactate Dehydrogenase CK-MB (CK-2) C-Reactive Protein NT-Pro-B Natriuret Pep Total Protein Albumin Urine WBC (Auto) 12/21/19 12/22/19 12/22/19 17:16 00:01 01:33 WBC RBC Hgb Hct MCHC RDW MCH Lymph % (Auto) [place] % (Auto) [place] # Eos # [place] # (Auto) Eos # (Auto) Seg Neutrophils % Seg Neuts % (Manual) Baso # (Auto) Lymphocytes % (Manual) Monocytes % (Manual) Eosinophils % (Manual) Basophils % (Manual) Seg Neutrophils # Seg Neutrophils # Man Lymphocytes # (Manual) Monocytes # (Manual) Eosinophils # (Manual) Nucleated RBC % Basophils # (Manual) APTT Heparin Anti-Xa Level 0.10 L ABG pH POC ABG pO2 ABG pO2 ABG HCO3 ABG O2 Saturation ABG Base Excess POC ABG pCO2 ABG Hemoglobin ABG Oxyhemoglobin Oxyhemoglobin Sodium Potassium Chloride Carbon Dioxide BUN Creatinine Glucose POC Glucose 167 H 179 H Lactic Acid Calcium Phosphorus Magnesium AST ALT Lactate Dehydrogenase CK-MB (CK-2) C-Reactive Protein NT-Pro-B Natriuret Pep Total Protein Albumin Urine WBC (Auto) 12/22/19 12/22/19 12/22/19 03:22 05:10 05:10 WBC 13.8 H RBC 3.20 L Hgb 8.9 L Hct 28.1 L MCHC RDW 15.9 H MCH Lymph % (Auto) [place] % (Auto) [place] # Eos # [place] # (Auto) Eos # (Auto) Seg Neutrophils % Seg Neuts % (Manual) Baso # (Auto) Lymphocytes % (Manual) Monocytes % (Manual) Eosinophils % (Manual) Basophils % (Manual) Seg Neutrophils # Seg Neutrophils # Man Lymphocytes # (Manual) Monocytes # (Manual) Eosinophils # (Manual) Nucleated RBC % Basophils # (Manual) APTT Heparin Anti-Xa Level ABG pH POC ABG pO2 52.3 L ABG pO2 ABG HCO3 ABG O2 Saturation ABG Base Excess POC ABG pCO2 52.9 H ABG Hemoglobin 10.7 L ABG Oxyhemoglobin 84 L Oxyhemoglobin Sodium Potassium Chloride 96.6 L Carbon Dioxide BUN 25 H Creatinine 0.7 L Glucose 129 H POC Glucose Lactic Acid Calcium Phosphorus Magnesium AST ALT Lactate Dehydrogenase CK-MB (CK-2) C-Reactive Protein NT-Pro-B Natriuret Pep Total Protein Albumin Urine WBC (Auto) 12/22/19 12/22/19 12/22/19 05:18 12:32 12:43 WBC RBC Hgb Hct MCHC RDW MCH Lymph % (Auto) [place] % (Auto) [place] # Eos # [place] # (Auto) Eos # (Auto) Seg Neutrophils % Seg Neuts % (Manual) Baso # (Auto) Lymphocytes % (Manual) Monocytes % (Manual) Eosinophils % (Manual) Basophils % (Manual) Seg Neutrophils # Seg Neutrophils # Man Lymphocytes # (Manual) Monocytes # (Manual) Eosinophils # (Manual) Nucleated RBC % Basophils # (Manual) APTT Heparin Anti-Xa Level 0.18 L ABG pH POC ABG pO2 ABG pO2 ABG HCO3 ABG O2 Saturation ABG Base Excess POC ABG pCO2 ABG Hemoglobin ABG Oxyhemoglobin Oxyhemoglobin Sodium Potassium Chloride Carbon Dioxide BUN Creatinine Glucose POC Glucose 131 H 208 H Lactic Acid Calcium Phosphorus Magnesium AST ALT Lactate Dehydrogenase CK-MB (CK-2) C-Reactive Protein NT-Pro-B Natriuret Pep Total Protein Albumin Urine WBC (Auto) 12/22/19 12/22/19 12/23/19 17:44 23:20 03:51 WBC 15.2 H RBC 3.43 L Hgb 9.6 L Hct 30.3 L MCHC RDW 15.9 H MCH Lymph % (Auto) [place] % (Auto) [place] # Eos # [place] # (Auto) Eos # (Auto) Seg Neutrophils % Seg Neuts % (Manual) Baso # (Auto) Lymphocytes % (Manual) Monocytes % (Manual) Eosinophils % (Manual) Basophils % (Manual) Seg Neutrophils # Seg Neutrophils # Man Lymphocytes # (Manual) Monocytes # (Manual) Eosinophils # (Manual) Nucleated RBC % Basophils # (Manual) APTT Heparin Anti-Xa Level ABG pH POC ABG pO2 ABG pO2 ABG HCO3 ABG O2 Saturation ABG Base Excess POC ABG pCO2 ABG Hemoglobin ABG Oxyhemoglobin Oxyhemoglobin Sodium Potassium Chloride Carbon Dioxide BUN Creatinine Glucose POC Glucose 209 H 119 H Lactic Acid Calcium Phosphorus Magnesium AST ALT Lactate Dehydrogenase CK-MB (CK-2) C-Reactive Protein NT-Pro-B Natriuret Pep Total Protein Albumin Urine WBC (Auto) 12/23/19 12/23/19 12/23/19 03:51 05:31 12:09 WBC RBC Hgb Hct MCHC RDW MCH Lymph % (Auto) [place] % (Auto) [place] # Eos # [place] # (Auto) Eos # (Auto) Seg Neutrophils % Seg Neuts % (Manual) Baso # (Auto) Lymphocytes % (Manual) Monocytes % (Manual) Eosinophils % (Manual) Basophils % (Manual) Seg Neutrophils # Seg Neutrophils # Man Lymphocytes # (Manual) Monocytes # (Manual) Eosinophils # (Manual) Nucleated RBC % Basophils # (Manual) APTT Heparin Anti-Xa Level ABG pH POC ABG pO2 ABG pO2 ABG HCO3 ABG O2 Saturation ABG Base Excess POC ABG pCO2 ABG Hemoglobin ABG Oxyhemoglobin Oxyhemoglobin Sodium Potassium Chloride 97.2 L Carbon Dioxide 31 H BUN 23 H Creatinine 0.6 L Glucose 153 H POC Glucose 149 H 144 H Lactic Acid Calcium Phosphorus Magnesium AST ALT Lactate Dehydrogenase CK-MB (CK-2) C-Reactive Protein NT-Pro-B Natriuret Pep Total Protein Albumin Urine WBC (Auto) 12/23/19 12/23/19 12/23/19 15:30 17:49 23:31 WBC RBC Hgb Hct MCHC RDW MCH Lymph % (Auto) [place] % (Auto) [place] # Eos # [place] # (Auto) Eos # (Auto) Seg Neutrophils % Seg Neuts % (Manual) Baso # (Auto) Lymphocytes % (Manual) Monocytes % (Manual) Eosinophils % (Manual) Basophils % (Manual) Seg Neutrophils # Seg Neutrophils # Man Lymphocytes # (Manual) Monocytes # (Manual) Eosinophils # (Manual) Nucleated RBC % Basophils # (Manual) APTT Heparin Anti-Xa Level 0.21 L ABG pH POC ABG pO2 ABG pO2 ABG HCO3 ABG O2 Saturation ABG Base Excess POC ABG pCO2 ABG Hemoglobin ABG Oxyhemoglobin Oxyhemoglobin Sodium Potassium Chloride Carbon Dioxide BUN Creatinine Glucose POC Glucose 192 H 151 H Lactic Acid Calcium Phosphorus Magnesium AST ALT Lactate Dehydrogenase CK-MB (CK-2) C-Reactive Protein NT-Pro-B Natriuret Pep Total Protein Albumin Urine WBC (Auto) 12/24/19 12/24/19 12/24/19 05:34 12:13 16:50 WBC RBC Hgb Hct MCHC RDW MCH Lymph % (Auto) [place] % (Auto) [place] # Eos # [place] # (Auto) Eos # (Auto) Seg Neutrophils % Seg Neuts % (Manual) Baso # (Auto) Lymphocytes % (Manual) Monocytes % (Manual) Eosinophils % (Manual) Basophils % (Manual) Seg Neutrophils # Seg Neutrophils # Man Lymphocytes # (Manual) Monocytes # (Manual) Eosinophils # (Manual) Nucleated RBC % Basophils # (Manual) APTT Heparin Anti-Xa Level 0.16 L ABG pH POC ABG pO2 ABG pO2 ABG HCO3 ABG O2 Saturation ABG Base Excess POC ABG pCO2 ABG Hemoglobin ABG Oxyhemoglobin Oxyhemoglobin Sodium Potassium Chloride Carbon Dioxide BUN Creatinine Glucose POC Glucose 145 H 124 H Lactic Acid Calcium Phosphorus Magnesium AST ALT Lactate Dehydrogenase CK-MB (CK-2) C-Reactive Protein NT-Pro-B Natriuret Pep Total Protein Albumin Urine WBC (Auto) 12/24/19 12/25/19 12/25/19 17:53 00:14 04:18 WBC 12.9 H RBC 3.30 L Hgb 9.1 L Hct 28.8 L MCHC RDW 16.4 H MCH Lymph % (Auto) [place] % (Auto) 7.8 H [place] # Eos # [place] # (Auto) 1.0 H Eos # (Auto) Seg Neutrophils % 75.5 H Seg Neuts % (Manual) Baso # (Auto) Lymphocytes % (Manual) Monocytes % (Manual) Eosinophils % (Manual) Basophils % (Manual) Seg Neutrophils # 9.7 H Seg Neutrophils # Man Lymphocytes # (Manual) Monocytes # (Manual) Eosinophils # (Manual) Nucleated RBC % Basophils # (Manual) APTT Heparin Anti-Xa Level ABG pH POC ABG pO2 ABG pO2 ABG HCO3 ABG O2 Saturation ABG Base Excess POC ABG pCO2 ABG Hemoglobin ABG Oxyhemoglobin Oxyhemoglobin Sodium Potassium Chloride Carbon Dioxide BUN Creatinine Glucose POC Glucose 164 H 148 H Lactic Acid Calcium Phosphorus Magnesium AST ALT Lactate Dehydrogenase CK-MB (CK-2) C-Reactive Protein NT-Pro-B Natriuret Pep Total Protein Albumin Urine WBC (Auto) 12/25/19 12/25/19 12/25/19 04:18 05:38 11:44 WBC RBC Hgb Hct MCHC RDW MCH Lymph % (Auto) [place] % (Auto) [place] # Eos # [place] # (Auto) Eos # (Auto) Seg Neutrophils % Seg Neuts % (Manual) Baso # (Auto) Lymphocytes % (Manual) Monocytes % (Manual) Eosinophils % (Manual) Basophils % (Manual) Seg Neutrophils # Seg Neutrophils # Man Lymphocytes # (Manual) Monocytes # (Manual) Eosinophils # (Manual) Nucleated RBC % Basophils # (Manual) APTT Heparin Anti-Xa Level ABG pH POC ABG pO2 ABG pO2 ABG HCO3 ABG O2 Saturation ABG Base Excess POC ABG pCO2 ABG Hemoglobin ABG Oxyhemoglobin Oxyhemoglobin Sodium Potassium Chloride Carbon Dioxide 33 H BUN 27 H Creatinine 0.6 L Glucose 132 H POC Glucose 152 H 166 H Lactic Acid Calcium Phosphorus Magnesium AST ALT Lactate Dehydrogenase CK-MB (CK-2) C-Reactive Protein NT-Pro-B Natriuret Pep Total Protein Albumin Urine WBC (Auto) 12/25/19 12/26/19 12/26/19 18:29 00:17 00:18 WBC RBC Hgb Hct MCHC RDW MCH Lymph % (Auto) [place] % (Auto) [place] # Eos # [place] # (Auto) Eos # (Auto) Seg Neutrophils % Seg Neuts % (Manual) Baso # (Auto) Lymphocytes % (Manual) Monocytes % (Manual) Eosinophils % (Manual) Basophils % (Manual) Seg Neutrophils # Seg Neutrophils # Man Lymphocytes # (Manual) Monocytes # (Manual) Eosinophils # (Manual) Nucleated RBC % Basophils # (Manual) APTT Heparin Anti-Xa Level ABG pH POC ABG pO2 ABG pO2 ABG HCO3 ABG O2 Saturation ABG Base Excess POC ABG pCO2 ABG Hemoglobin ABG Oxyhemoglobin Oxyhemoglobin Sodium Potassium Chloride 97.8 L Carbon Dioxide BUN 25 H Creatinine 0.6 L Glucose 140 H POC Glucose 194 H 151 H Lactic Acid Calcium Phosphorus Magnesium AST ALT Lactate Dehydrogenase CK-MB (CK-2) C-Reactive Protein NT-Pro-B Natriuret Pep Total Protein Albumin Urine WBC (Auto) 12/26/19 12/26/19 12/26/19 05:36 11:41 17:50 WBC RBC Hgb Hct MCHC RDW MCH Lymph % (Auto) [place] % (Auto) [place] # Eos # [place] # (Auto) Eos # (Auto) Seg Neutrophils % Seg Neuts % (Manual) Baso # (Auto) Lymphocytes % (Manual) Monocytes % (Manual) Eosinophils % (Manual) Basophils % (Manual) Seg Neutrophils # Seg Neutrophils # Man Lymphocytes # (Manual) Monocytes # (Manual) Eosinophils # (Manual) Nucleated RBC % Basophils # (Manual) APTT Heparin Anti-Xa Level ABG pH POC ABG pO2 ABG pO2 ABG HCO3 ABG O2 Saturation ABG Base Excess POC ABG pCO2 ABG Hemoglobin ABG Oxyhemoglobin Oxyhemoglobin Sodium Potassium Chloride Carbon Dioxide BUN Creatinine Glucose POC Glucose 156 H 148 H 139 H Lactic Acid Calcium Phosphorus Magnesium AST ALT Lactate Dehydrogenase CK-MB (CK-2) C-Reactive Protein NT-Pro-B Natriuret Pep Total Protein Albumin Urine WBC (Auto) 12/26/19 12/27/19 12/27/19 23:19 05:34 12:02 WBC RBC Hgb Hct MCHC RDW MCH Lymph % (Auto) [place] % (Auto) [place] # Eos # [place] # (Auto) Eos # (Auto) Seg Neutrophils % Seg Neuts % (Manual) Baso # (Auto) Lymphocytes % (Manual) Monocytes % (Manual) Eosinophils % (Manual) Basophils % (Manual) Seg Neutrophils # Seg Neutrophils # Man Lymphocytes # (Manual) Monocytes # (Manual) Eosinophils # (Manual) Nucleated RBC % Basophils # (Manual) APTT Heparin Anti-Xa Level ABG pH POC ABG pO2 ABG pO2 ABG HCO3 ABG O2 Saturation ABG Base Excess POC ABG pCO2 ABG Hemoglobin ABG Oxyhemoglobin Oxyhemoglobin Sodium Potassium Chloride Carbon Dioxide BUN Creatinine Glucose POC Glucose 161 H 145 H 157 H Lactic Acid Calcium Phosphorus Magnesium AST ALT Lactate Dehydrogenase CK-MB (CK-2) C-Reactive Protein NT-Pro-B Natriuret Pep Total Protein Albumin Urine WBC (Auto) 12/27/19 12/27/19 12/27/19 17:35 20:11 23:00 WBC RBC Hgb Hct MCHC RDW MCH Lymph % (Auto) [place] % (Auto) [place] # Eos # [place] # (Auto) Eos # (Auto) Seg Neutrophils % Seg Neuts % (Manual) Baso # (Auto) Lymphocytes % (Manual) Monocytes % (Manual) Eosinophils % (Manual) Basophils % (Manual) Seg Neutrophils # Seg Neutrophils # Man Lymphocytes # (Manual) Monocytes # (Manual) Eosinophils # (Manual) Nucleated RBC % Basophils # (Manual) APTT Heparin Anti-Xa Level 0.19 L ABG pH POC ABG pO2 ABG pO2 ABG HCO3 ABG O2 Saturation ABG Base Excess POC ABG pCO2 ABG Hemoglobin ABG Oxyhemoglobin Oxyhemoglobin Sodium Potassium Chloride Carbon Dioxide BUN Creatinine Glucose POC Glucose 158 H 155 H Lactic Acid Calcium Phosphorus Magnesium AST ALT Lactate Dehydrogenase CK-MB (CK-2) C-Reactive Protein NT-Pro-B Natriuret Pep Total Protein Albumin Urine WBC (Auto) 12/27/19 12/28/19 12/28/19 23:45 02:41 02:41 WBC 13.0 H RBC 3.48 L Hgb 9.5 L Hct 30.6 L MCHC 31 L RDW 16.6 H MCH 27 L Lymph % (Auto) 13.0 L [place] % (Auto) 8.0 H [place] # Eos # [place] # (Auto) 1.0 H Eos # (Auto) Seg Neutrophils % 76.3 H Seg Neuts % (Manual) Baso # (Auto) Lymphocytes % (Manual) Monocytes % (Manual) Eosinophils % (Manual) Basophils % (Manual) Seg Neutrophils # 9.9 H Seg Neutrophils # Man Lymphocytes # (Manual) Monocytes # (Manual) Eosinophils # (Manual) Nucleated RBC % Basophils # (Manual) APTT Heparin Anti-Xa Level ABG pH POC ABG pO2 ABG pO2 ABG HCO3 ABG O2 Saturation ABG Base Excess POC ABG pCO2 ABG Hemoglobin ABG Oxyhemoglobin Oxyhemoglobin Sodium Potassium Chloride Carbon Dioxide BUN 22 H Creatinine 0.6 L Glucose 101 H POC Glucose 130 H Lactic Acid Calcium Phosphorus Magnesium AST ALT Lactate Dehydrogenase CK-MB (CK-2) C-Reactive Protein NT-Pro-B Natriuret Pep Total Protein Albumin Urine WBC (Auto) 12/28/19 12/28/19 12/28/19 06:00 12:34 18:13 WBC RBC Hgb Hct MCHC RDW MCH Lymph % (Auto) [place] % (Auto) [place] # Eos # [place] # (Auto) Eos # (Auto) Seg Neutrophils % Seg Neuts % (Manual) Baso # (Auto) Lymphocytes % (Manual) Monocytes % (Manual) Eosinophils % (Manual) Basophils % (Manual) Seg Neutrophils # Seg Neutrophils # Man Lymphocytes # (Manual) Monocytes # (Manual) Eosinophils # (Manual) Nucleated RBC % Basophils # (Manual) APTT Heparin Anti-Xa Level ABG pH POC ABG pO2 ABG pO2 ABG HCO3 ABG O2 Saturation ABG Base Excess POC ABG pCO2 ABG Hemoglobin ABG Oxyhemoglobin Oxyhemoglobin Sodium Potassium Chloride Carbon Dioxide BUN Creatinine Glucose POC Glucose 150 H 161 H 128 H Lactic Acid Calcium Phosphorus Magnesium AST ALT Lactate Dehydrogenase CK-MB (CK-2) C-Reactive Protein NT-Pro-B Natriuret Pep Total Protein Albumin Urine WBC (Auto) 12/28/19 12/29/19 12/29/19 23:36 05:21 11:40 WBC RBC Hgb Hct MCHC RDW MCH Lymph % (Auto) [place] % (Auto) [place] # Eos # [place] # (Auto) Eos # (Auto) Seg Neutrophils % Seg Neuts % (Manual) Baso # (Auto) Lymphocytes % (Manual) Monocytes % (Manual) Eosinophils % (Manual) Basophils % (Manual) Seg Neutrophils # Seg Neutrophils # Man Lymphocytes # (Manual) Monocytes # (Manual) Eosinophils # (Manual) Nucleated RBC % Basophils # (Manual) APTT Heparin Anti-Xa Level ABG pH POC ABG pO2 ABG pO2 ABG HCO3 ABG O2 Saturation ABG Base Excess POC ABG pCO2 ABG Hemoglobin ABG Oxyhemoglobin Oxyhemoglobin Sodium Potassium Chloride Carbon Dioxide BUN Creatinine Glucose POC Glucose 137 H 136 H 166 H Lactic Acid Calcium Phosphorus Magnesium AST ALT Lactate Dehydrogenase CK-MB (CK-2) C-Reactive Protein NT-Pro-B Natriuret Pep Total Protein Albumin Urine WBC (Auto) 12/29/19 12/29/19 12/29/19 17:23 19:21 23:38 WBC RBC Hgb Hct MCHC RDW MCH Lymph % (Auto) [place] % (Auto) [place] # Eos # [place] # (Auto) Eos # (Auto) Seg Neutrophils % Seg Neuts % (Manual) Baso # (Auto) Lymphocytes % (Manual) Monocytes % (Manual) Eosinophils % (Manual) Basophils % (Manual) Seg Neutrophils # Seg Neutrophils # Man Lymphocytes # (Manual) Monocytes # (Manual) Eosinophils # (Manual) Nucleated RBC % Basophils # (Manual) APTT Heparin Anti-Xa Level 0.20 L ABG pH POC ABG pO2 ABG pO2 ABG HCO3 ABG O2 Saturation ABG Base Excess POC ABG pCO2 ABG Hemoglobin ABG Oxyhemoglobin Oxyhemoglobin Sodium Potassium Chloride Carbon Dioxide BUN Creatinine Glucose POC Glucose 144 H 141 H Lactic Acid Calcium Phosphorus Magnesium AST ALT Lactate Dehydrogenase CK-MB (CK-2) C-Reactive Protein NT-Pro-B Natriuret Pep Total Protein Albumin Urine WBC (Auto) 12/30/19 12/30/19 12/30/19 03:58 03:58 04:59 WBC RBC 3.54 L Hgb 9.8 L Hct 30.7 L MCHC RDW 16.8 H MCH Lymph % (Auto) [place] % (Auto) [place] # Eos # [place] # (Auto) Eos # (Auto) Seg Neutrophils % Seg Neuts % (Manual) Baso # (Auto) Lymphocytes % (Manual) Monocytes % (Manual) Eosinophils % (Manual) Basophils % (Manual) Seg Neutrophils # Seg Neutrophils # Man Lymphocytes # (Manual) Monocytes # (Manual) Eosinophils # (Manual) Nucleated RBC % Basophils # (Manual) APTT Heparin Anti-Xa Level ABG pH POC ABG pO2 ABG pO2 ABG HCO3 29.8 H ABG O2 Saturation ABG Base Excess 4.8 H POC ABG pCO2 ABG Hemoglobin 11.2 L ABG Oxyhemoglobin Oxyhemoglobin 93.8 L Sodium Potassium Chloride 97.8 L Carbon Dioxide BUN 26 H Creatinine Glucose 168 H POC Glucose Lactic Acid Calcium Phosphorus Magnesium AST ALT Lactate Dehydrogenase CK-MB (CK-2) C-Reactive Protein NT-Pro-B Natriuret Pep Total Protein Albumin Urine WBC (Auto) 12/30/19 05:45 WBC RBC Hgb Hct MCHC RDW MCH Lymph % (Auto) Kaufman % (Auto) Kaufman # Eos # Kaufman # (Auto) Eos # (Auto) Seg Neutrophils % Seg Neuts % (Manual) Baso # (Auto) Lymphocytes % (Manual) Monocytes % (Manual) Eosinophils % (Manual) Basophils % (Manual) Seg Neutrophils # Seg Neutrophils # Man Lymphocytes # (Manual) Monocytes # (Manual) Eosinophils # (Manual) Nucleated RBC % Basophils # (Manual) APTT Heparin Anti-Xa Level ABG pH POC ABG pO2 ABG pO2 ABG HCO3 ABG O2 Saturation ABG Base Excess POC ABG pCO2 ABG Hemoglobin ABG Oxyhemoglobin Oxyhemoglobin Sodium Potassium Chloride Carbon Dioxide BUN Creatinine Glucose POC Glucose 163 H Lactic Acid Calcium Phosphorus Magnesium AST ALT Lactate Dehydrogenase CK-MB (CK-2) C-Reactive Protein NT-Pro-B Natriuret Pep Total Protein Albumin Urine WBC (Auto) Allied health notes reviewed: RT
[2019-12-30] MEDS: fentaNYL DRIP Premix 2,000 MCG/100 ML BAG IV SCH ×2 (11:52→18:03)
--- NOTE | 2019-12-30 13:41 | Progress Note ---
Assessment and Plan -Acute LLL PE -Acute RLE DVT -Persistent fevers; secondary to sepsis and acute PE/DVT -Severe sepsis; secondary to bilateral pneumonia, persistent fevers -Acute hypoxemic respiratory failure, on vent unable to wean -Bilateral pneumonia, community acquired, -Aspiration Pneumonia -Sustained SVT, on amiodarone -Acute on chronic systolic congestive heart failure -History of cerebrovascular accident. -Tobacco use disorder -Alcohol abuse with DT -Acute chronic obstructive pulmonary disease exacerbation. -Hypertension and hypertensive urgency at presentation. -History of arthritis. -Paroxysmal atrial fibrillation -Leukocytosis with possible sepsis. -Lactic acidosis. -Bleeding from ET tube -Oropharyngeal dysphagia -S/P Knee surgery -History of peptic Ulcer Surgery -DVT prophylaxis COVID-19 test; 11/24/2019; negative 11/26/2019; negative Plan Continue ventilatory support Wean as tolerated as per critical care Completed abx, ID following Aspiration precautions Continue amiodarone and metoprolol for suppression of paroxysmal atrial fibrillation. Anticoagulation currently with intravenous heparin. thoracentesis cancelled as not much fluid to drawn Will need trach and PEG DVT/GI prophy Heparin/Protonix Plan of care reviewed with the patient's nurse Closely monitor the patient and adjust management as needed The high probability of a clinically significant, sudden or life threatening deterioration of the [Respiratory, cardiovascular & neurological] system(s) required my full and direct attention, intervention and personal management. The aggregate critical care time was [33] minutes without overlap. Time includes spent on [x] Data Review and interpretation [x] Patient assessment and monitoring of vital signs [x] Documentation [x] Medication orders and management Brief History Patient is a 64-year-old male with known history of hypertension, COPD, history of coronary artery disease, CHF with ejection fraction of 20 to 25% in August 2018 presenting to the emergency room via EMS complaining of shortness of breath. Patient was found to be hypoxic and in respiratory distress. Patient was placed on CPAP in route to the hospital. Oxygen saturation was said to be 88%. Started on Solu-Medrol, Lasix and magnesium in ED, patient was also found to be lethargic with an oxygen saturation of about 91% on CPAP. He was subsequently intubated. Work-up in the emergency room including chest x-ray reveals bilateral pneumonia. He had an elevated white count of 14 and also had an elevated BNP. Patient admitted to the ICU and placed on empiric IV antibiotics for pneumonia. He tested negative for COVID-19 and placed on isolation precautions. Remains intubated on ventilatory support, sputum cultures positive for Pseudomonas, ID treated with cefepime and Vanco. His hospital course became complicated with acute PE, DVT, paroxysmal atrial fib - placed on heparin drip. Patient difficult to wean off, remains intubated. 11/25: Leukocytosis improving. Continue current management anticipate extubation possible today. 11/26. Still intubated. Failed SBT yesterday. Repeat COVID-19 test is negative. 11/27. CT head ordered for possible neuro status change is negative. More responsive as the day progressed as per RN. Chest xray today shows interval improvement. He is still on antibiotics - will complete regimen today. 11/28: Considering difficult extubation and severe cardiomyopathy, will obtain cardiology consult. Aspiration precautions, tube feeds held, continue antibiotics. 11/29: Still with intermittent fever but improving imaging, continue diuresis. 11/30; Extremely agitated when placed on PSV- SVT, hypertension. Patiet acvadimo wledged that he drinks. IV Ativan given, CIWA protocol initiated. 12 lead ordered showed SVT, one dose of amiodarone ordered. continue to follow up cardiology recommendation 12/01: Patient remains on mechanical ventilation, getting SBT trial. Remains in SVT, started on amiodarone drip by cardiology. 12/02; patient is on mechanical ventilation and on spontaneous breathing trial. Cardiology started the patient on PO amiodarone. Patient is on cefepime. 12/03: patient is on mechanical ventilation. Cardiology started the patient on PO amiodarone for SVT. Patient is on cefepime, no fever overnight. 12/04: Patient is sedated and on mechanical ventilation. Patient had fever yesterday afternoon 102.3, ID changed his cefepime to meropenem. Heart rate is controlled, cardiology is following. Patient has paroxysmal atrial fibrillation and on amiodarone and metoprolol, subcu heparin for anticoagulation and will need oral anticoagulation once stable. 12/05: Sputum cultures positive for Pseudomonas, ID following 12/06; patient is febrile T-max 24 hours 102 F ,ID change antibiotics to cefepime and Vancomycin 12/07: resumed care. Na 149 today, start on 03/26 NS. cont current care 12/08: remains in a stable sinus rhythm and stable blood pressure, continue supportive care. wean off vent as tolerated. persistent fever - ordered CTA chest 12/09: noted bloody discharges from ET tube last night. CTA and LE venous doppler positive for acute PE and DVT. resume heparin drip, consult vascular for possible EKOS/ IVC filter. monitor h/h. cont SBT trial, wean off vent as tolerated. called but no answer 12/10: cont heparin drip for acute PE and DVT, follow vascular recommendation. monitor h/h, wean off vent as tolerated 12/11: o/n had bleeding from ET tube, cont to monitor h/h. vascular recommending medical Mx. called ; Nicolle Araiza [phone]. 12/12: H&H remained stable, patient on heparin drip. Discussed with yesterday. Discussed with critical care attending. Patient not tolerating SBT trial. Continue to wean off from vent as tolerated, follow clinically. Tolerating tube feeding 12/13: Continue heparin drip, wean off from vent as tolerated. Discussed with pulmonary attending if no improvement by the end of 3 weeks of intubation patient may need trach and PEG. Continue to provide supportive care, follow CBC and BMP. 12/14: Stop cefepime today, wean off from vent as tolerated. cont Heparin infusion, while monitoring for bleeding 12/15: Patient is not tolerating SBT trial, becoming apnic on CPAP. May need to place on trach and PEG. Continue heparin drip, monitor off antibiotics 12/16. Still maintained on vent. May need PEG and trach as her has been failed SBTs 12/17. Had low UO overnight. Started on tamsulosin. May need PEG and trach - defer to pulm. 12/18-. Plan for US thoracentesis to help with weaning. Remains on heparin drip for VTE. 12/20. Discussed with spouse today. He will get thoracentesis today. INR/PTT ordered. Heparin drip held. 12/21: planned for trach and PEG, cont supportive care, thoracentesis cancelled 12/22: cont supportive care, wean off from vent, daily SBT 12/23: tolerating SBT, possible extubation soon. cont supportive care 12/24: wean off vent as tolerated, daily SBT, follow clinically 12/25; cont to monitor, wean off vent as tolerated 12/26: Continue to monitor wean off vent as tolerated patient is tolerating SBT trial but not ready to wean off. 12/27: need trach and PEG, will f/u with GS, cont supportive care 12/28: pending trach/PEG 12/29: plan for trach and PEG on Saturday Subjective Date of service: 12/30/19 Principal diagnosis: Ac hypoxemic resp failure; Pneumonia; PUI COVID-19; CHF; COPD; HTN Interval history: Patient seen and examined Patient intubated on mechanical ventilation Discussed with RN at the bedside H/H STABLE, patient remains on heparin drip Objective - Exam Narrative Exam: General appearance: Present: well-nourished, other (Intubated), opens eyes to names and follows minor command - EENT Eyes: Present: PERRL, EOM intact. Absent: scleral icterus ENT: clear oral mucosa, dentition normal - Neck Neck: Present: supple, normal ROM - Respiratory Respiratory effort: normal, mechanical ventilation Respiratory: bilateral: rales - Cardiovascular Rhythm: regular Heart Sounds: Present: S1 & S2, tachycardic. Absent: gallop, systolic murmur, diastolic murmur, rub - Extremities Extremities: no ischemia, pulses intact, pulses symmetrical, No edema, Full ROM Peripheral Pulses: within normal limits - Abdominal General gastrointestinal: Present: soft, non-tender, non-distended, normal bowel sounds. Absent: mass - Integumentary Integumentary: Present: clear, warm, dry. Absent: rash - Musculoskeletal Musculoskeletal: no joint swelling - Psychiatric Psychiatric: sedated Neurology: no focal deficits - Constitutional Vitals: Vital Signs - 12hr 12/30/19 12/30/19 12/30/19 02:00 03:00 04:00 Temperature 99.0 F Pulse Rate 102 H 102 H 112 H Pulse Rate [ 112 H From Monitor] Respiratory 54 H 26 H 29 H Rate Blood Pressure 117/84 118/76 131/89 O2 Sat by Pulse 94 91 Oximetry 12/30/19 12/30/19 12/30/19 04:20 05:00 05:21 Temperature Pulse Rate 103 H 94 H 93 H Pulse Rate [ From Monitor] Respiratory 24 Rate Blood Pressure 131/89 107/73 107/73 O2 Sat by Pulse 94 91 Oximetry 12/30/19 12/30/19 12/30/19 06:01 07:01 07:58 Temperature Pulse Rate 98 H 103 H 111 H Pulse Rate [ From Monitor] Respiratory 32 H 34 H Rate Blood Pressure 110/81 134/103 128/98 O2 Sat by Pulse 89 86 95 Oximetry 12/30/19 12/30/19 12/30/19 08:00 09:00 10:00 Temperature 98.9 F Pulse Rate 111 H 96 H 96 H Pulse Rate [ 104 H From Monitor] Respiratory 32 H 25 H 25 H Rate Blood Pressure 128/98 129/78 127/85 O2 Sat by Pulse 89 93 Oximetry 12/30/19 12/30/19 12/30/19 11:00 11:57 12:00 Temperature 99.1 F Pulse Rate 96 H 94 H 95 H Pulse Rate [ 93 H From Monitor] Respiratory 16 22 Rate Blood Pressure 126/81 126/81 117/78 O2 Sat by Pulse 89 93 91 Oximetry 12/30/19 13:00 Temperature Pulse Rate 93 H Pulse Rate [ From Monitor] Respiratory 21 Rate Blood Pressure 118/83 O2 Sat by Pulse 95 Oximetry - Labs CBC & Chem 7: 12/30/19 03:58 12/30/19 03:58 Labs: Abnormal lab results 12/29/19 12/29/19 12/29/19 Range/Units 17:23 19:21 23:38 RBC (3.65-5.03) M/mm3 Hgb (11.8-15.2) gm/dl Hct (35.5-45.6) % RDW (13.2-15.2) % Heparin Anti-Xa Level 0.20 L (0.3-0.7) U.I./ml ABG HCO3 (20.0-26.0) mmol/L ABG Base Excess (-2.0-3.0) mmol/L ABG Hemoglobin (14.0-18.0) gm/dl Oxyhemoglobin (95.0-99.0) % Chloride (98-107) mmol/L BUN (9-20) mg/dL Glucose (75-100) mg/dL POC Glucose 144 H 141 H (70-105) 12/30/19 12/30/19 12/30/19 Range/Units 03:58 03:58 04:59 RBC 3.54 L (3.65-5.03) M/mm3 Hgb 9.8 L (11.8-15.2) gm/dl Hct 30.7 L (35.5-45.6) % RDW 16.8 H (13.2-15.2) % Heparin Anti-Xa Level (0.3-0.7) U.I./ml ABG HCO3 29.8 H (20.0-26.0) mmol/L ABG Base Excess 4.8 H (-2.0-3.0) mmol/L ABG Hemoglobin 11.2 L (14.0-18.0) gm/dl Oxyhemoglobin 93.8 L (95.0-99.0) % Chloride 97.8 L (98-107) mmol/L BUN 26 H (9-20) mg/dL Glucose 168 H (75-100) mg/dL POC Glucose (70-105) 12/30/19 12/30/19 Range/Units 05:45 11:34 RBC (3.65-5.03) M/mm3 Hgb (11.8-15.2) gm/dl Hct (35.5-45.6) % RDW (13.2-15.2) % Heparin Anti-Xa Level (0.3-0.7) U.I./ml ABG HCO3 (20.0-26.0) mmol/L ABG Base Excess (-2.0-3.0) mmol/L ABG Hemoglobin (14.0-18.0) gm/dl Oxyhemoglobin (95.0-99.0) % Chloride (98-107) mmol/L BUN (9-20) mg/dL Glucose (75-100) mg/dL POC Glucose 163 H 180 H (70-105) HEART Score - HEART Score Troponin: Troponin T < 0.010 ng/mL (0.00-0.029) 11/24/19 02:53
[2019-12-30] MEDS: POLYETHYLENE GLYCOL 3350 17 GM POWDER PO SCH (22:25)
[2019-12-30] MEDS: TAMSULOSIN 0.4 MG CAP PO SCH (22:25)
[2019-12-31] MEDS: INSULIN LISPRO 100 UNIT/ML VIAL 3 mL SUB-Q SCH ×4 (01:00→21:25)
[2019-12-31] MEDS: METOPROLOL TARTRATE 50 MG TAB PO SCH ×3 (05:27→21:43)
[2019-12-31 05:49] LABS: BUN/Creatinine Ratio 41; Blood Urea Nitrogen 33 mg/dL (9-20); Hemolysis Index 23
[2019-12-31] MEDS ORDERED: SODIUM POLYSTYRENE 15 GM/60 ML ORAL LIQD PO NR (08:31)
[2019-12-31] MEDS: FAMOTIDINE 20 MG TAB PO SCH ×2 (09:41→21:43)
[2019-12-31] MEDS: AMIODARONE 200 MG TAB PO SCH ×2 (09:41→21:43)
[2019-12-31] MEDS: DOCUSATE SODIUM 100 MG/10 ML ORAL LIQD FEEDTUBE SCH ×2 (09:41→21:42)
[2019-12-31] MEDS: QUEtiapine 200 MG TAB PO SCH ×2 (09:41→21:43)
--- NOTE | 2019-12-31 09:44 | Progress Note ---
<KACEY HICKEY - Last Filed: 12/31/19 09:43> Assessment and Plan Transient Afib after CPAP trial currently in sinus rhythm Ischemic Cardiomyopathy, resolving re-echo this presentation reports an LVEF 40-45%. echo 08/2018: decreased LVEF 20-25%. Hx of CAD [facility] 12/2018: mild in-stent restenosis. No significant residual disease. Multifocal pneumonia negative COVID-19 test x 2 Respiratory failure Acute PE/DVT on IV heparin Recommendations: Continue amiodarone and metoprolol for suppression of paroxysmal atrial fibrillation. Otherwise, conservative cardiac management. We will follow intermittently. Subjective Date of service: 12/31/19 Principal diagnosis: Ac hypoxemic resp failure; Pneumonia; PUI COVID-19; CHF; COPD; HTN Interval history: No interval cardiac changes. Stable sinus rhythm on telemetry. Awaits PEG and trach placement. Objective Vital Signs Temp Pulse Pulse Resp BP Pulse Ox 12/31/19 09:20 99 H 94 12/31/19 09:00 108 H 19 137/95 98 12/31/19 08:50 99 H 137/95 92 12/31/19 08:00 102.0 F H 94 H 18 117/73 88 12/31/19 07:01 107 H 19 118/68 89 12/31/19 06:00 102 H 18 117/80 92 12/31/19 05:27 103 H 122/85 12/31/19 05:00 105 H 18 122/85 92 12/31/19 04:00 103 H 100 H 32 H 118/79 92 12/31/19 03:59 103 H 118/79 93 12/31/19 03:38 99.9 F H 12/31/19 03:00 104 H 19 124/79 93 12/31/19 02:00 105 H 18 114/81 93 12/31/19 01:00 103 H 18 130/89 92 12/31/19 00:51 102 H 124/85 91 12/31/19 00:00 98.9 F 99 H 115 H 17 124/85 92 12/30/19 23:53 99 H 17 114/94 92 12/30/19 23:00 106 H 20 114/94 92 12/30/19 22:24 101 H 133/100 12/30/19 22:00 100 H 16 133/100 92 12/30/19 21:00 101 H 17 117/94 92 12/30/19 20:00 99.0 F 103 H 100 H 17 117/94 96 12/30/19 19:00 97 H 17 122/91 93 12/30/19 18:00 97 H 17 121/91 99 12/30/19 17:01 96 H 22 107/76 93 12/30/19 16:59 101 H 107/76 92 12/30/19 16:00 98.4 F 94 H 96 H 13 107/76 96 12/30/19 15:46 105 H 124/81 12/30/19 15:00 96 H 16 124/81 94 12/30/19 14:00 94 H 16 122/84 94 12/30/19 13:00 93 H 21 118/83 95 12/30/19 12:00 99.1 F 95 H 93 H 22 117/78 91 12/30/19 11:57 94 H 126/81 93 12/30/19 11:00 96 H 16 126/81 89 12/30/19 10:00 96 H 25 H 127/85 93 - Physical Examination General: Other (intubated on the vent) Cardiac: Positive: Reg Rate and Rhythm - Labs and Meds Comprehensive Metabolic Panel 12/31/19 Range/Units 04:55 Sodium 138 (137-145) mmol/L Potassium 5.6 H D (3.6-5.0) mmol/L Chloride 100.0 (98-107) mmol/L Carbon Dioxide 23 (22-30) mmol/L BUN 33 H (9-20) mg/dL Creatinine 0.8 (0.8-1.3) mg/dL Glucose 131 H (75-100) mg/dL Calcium 9.0 (8.4-10.2) mg/dL - Allied health notes Allied health notes reviewed: RT <PETRONA SHAHID - Last Filed: 12/31/19 21:02> Assessment and Plan - Patient Problems (1) Acute respiratory failure Current Visit: Yes Status: Acute (2) Bilateral pneumonia Current Visit: Yes Status: Acute (3) COPD exacerbation Current Visit: No Status: Acute (4) Hypertension Current Visit: No Status: Acute Qualifiers: Hypertension type: essential hypertension Qualified Code(s): I10 - Essential (primary) hypertension (5) Cardiomyopathy Current Visit: Yes Status: Acute (6) Paroxysmal atrial fibrillation Current Visit: Yes Status: Acute Subjective Interval history: I SAW THIS PT & AGREE WITH THE Dx & Tx PLAN Objective Vital Signs Temp Pulse Pulse Resp BP Pulse Ox 12/31/19 19:43 98.9 F 12/31/19 19:27 95 H 157/114 94 12/31/19 18:00 109 H 19 115/97 89 12/31/19 17:50 103 H 110/92 93 12/31/19 17:00 103 H 21 110/92 85 12/31/19 16:00 101.0 F H 92 H 92 H 16 112/84 92 12/31/19 15:00 90 14 123/81 88 12/31/19 14:00 94 H 16 127/93 91 12/31/19 13:31 95 H 120/85 12/31/19 13:00 97 H 14 120/85 92 12/31/19 12:59 96 H 15 120/85 92 12/31/19 12:00 100.3 F H 95 H 95 H 20 124/79 92 12/31/19 11:00 97 H 17 124/79 91 12/31/19 10:00 103 H 19 137/95 91 12/31/19 09:20 99 H 22 94 12/31/19 09:00 108 H 19 137/95 98 12/31/19 08:50 99 H 137/95 92 12/31/19 08:00 102.0 F H 93 H 93 H 18 117/73 94 12/31/19 07:01 107 H 19 118/68 89 12/31/19 06:00 102 H 18 117/80 92 12/31/19 05:27 103 H 122/85 12/31/19 05:00 105 H 18 122/85 92 12/31/19 04:00 103 H 100 H 32 H 118/79 92 12/31/19 03:59 103 H 118/79 93 12/31/19 03:38 99.9 F H 12/31/19 03:00 104 H 19 124/79 93 12/31/19 02:00 105 H 18 114/81 93 12/31/19 01:00 103 H 18 130/89 92 12/31/19 00:51 102 H 124/85 91 12/31/19 00:00 98.9 F 99 H 115 H 17 124/85 92 12/30/19 23:53 99 H 17 114/94 92 12/30/19 23:00 106 H 20 114/94 92 12/30/19 22:24 101 H 133/100 12/30/19 22:00 100 H 16 133/100 92 - Labs and Meds Comprehensive Metabolic Panel 12/31/19 12/31/19 12/31/19 Range/Units 04:55 17:36 18:16 Sodium 138 141 139 (137-145) mmol/L Potassium 5.6 H D 5.0 4.9 (3.6-5.0) mmol/L Chloride 100.0 99.8 98.8 (98-107) mmol/L Carbon Dioxide 23 26 25 (22-30) mmol/L BUN 33 H 35 H 34 H (9-20) mg/dL Creatinine 0.8 0.8 0.9 (0.8-1.3) mg/dL Glucose 131 H 156 H 169 H (75-100) mg/dL Calcium 9.0 9.1 8.9 (8.4-10.2) mg/dL
[2019-12-31] MEDS: fentaNYL DRIP Premix 2,000 MCG/100 ML BAG IV SCH ×2 (10:04→18:18)
[2019-12-31] MEDS: HEPARIN/ 0.45% NACL DRIP 25,000 UNIT/500 ML BAG IV SCH (10:55)
--- NOTE | 2019-12-31 11:10 | Progress Note ---
Assessment and Plan Acute hypoxemic respiratory failure Bilateral pneumonia, community acquired. Acute LLL branch P.E. Acute DVT Person under investigation for COVID-19 infection. Acute congestive heart failure exacerbation. History of cerebrovascular accident. Acute chronic obstructive pulmonary disease exacerbation. Hypertension and hypertensive urgency at presentation. History of arthritis. Leukocytosis. Lactic acidosis. Oropharyngeal dysphagia - kayexalate 60 gms given earlier for hyperkalemia - tylenol for fevers - tentatively for tracheostomy in am - continue IV Heparin for VTE (Hold at 0600 am tomorrow for procedures) - transition to oral agent post trach & PEG - continue care as below otherwise; - continue daily SAT's and SBT assessment as tolerated - continue Flomax dose at 0.8 mg qhs - continue low dose seroquel - COVID isolation per facility protocol - free water for hypernatremia - continue diuresis while following electrolytes / I's & O's - continue to wean oxygen for O2 sat's > 92% - continue bronchodilators with pulmonary hygiene per RT - VAP bundle addressed (Aspiration precautions, HOB >40) - continue to wean per pulmonary driven protocols - sedation target is RASS 0 to -1 - continue prn analgesia per CPOT score - follow clinically re: fever curves / trend WBC - Avoid delirium (no benzodiazepines if they can be avoided) - Maintain sleep-wake cycle - enteral nutrition at goal rate as tolerated - continue accucheck's with glycemic control per SSI for target blood glucose goal of 140-180 mg/dL while critically ill; Avoid hypoglycemia - for VTE he is on IV Heparin - continue stress ulcer prophylaxis with Famotidine - continue mobility protocols for pressure ulcer prophylaxis - continue fall precautions - continue wound care management per RN / WCT - Supportive transfusions to keep HgB>7g/dL - CXR's and ABG's prn - Continue to monitor neurologic function - Continue chronic home medications - Continue all supportive care ........ re-evaluate in am & prn CONDITION: CRITICAL PROGNOSIS: GUARDED CODE STATUS: FULL CODE The high probability of a clinically significant, sudden or life threatening deterioration of the [Respiratory, cardiovascular & neurological] system(s) required my full and direct attention, intervention and personal management. The aggregate critical care time was [35] minutes without overlap. Time includes spent on [x] Data Review and interpretation [x] Patient assessment and monitoring of vital signs [x] Documentation [x] Medication orders and management Subjective Date of service: 12/31/19 Principal diagnosis: Ac hypoxemic resp failure; Pneumonia; PUI COVID-19; CHF; COPD; HTN Interval history: Patient is seen today for: Acute hypoxemic respiratory failure; Adan. Pneumonia (CAP); PUI COVID-19 infection; AE-CHF; AE-COPD; H/O CVA; HTN Seen and examined at bedside; 24 hour events reviewed; nursing and respiratory care staff consulted; no adverse overnight events reported to me; resting peacefully in bed; remains on MVS; on SBT with P-supp at 10; febrile to 102F earlier; no emsis or overt aspiration; agitated durine SAT with increased WOB Objective Vital Signs - 12hr 12/30/19 12/31/19 12/31/19 23:53 00:00 00:51 Temperature 98.9 F Pulse Rate 99 H 99 H 102 H Pulse Rate [ 115 H From Monitor] Respiratory 17 17 Rate Blood Pressure 114/94 124/85 124/85 O2 Sat by Pulse 92 92 91 Oximetry 12/31/19 12/31/19 12/31/19 01:00 02:00 03:00 Temperature Pulse Rate 103 H 105 H 104 H Pulse Rate [ From Monitor] Respiratory 18 18 19 Rate Blood Pressure 130/89 114/81 124/79 O2 Sat by Pulse 92 93 93 Oximetry 12/31/19 12/31/19 12/31/19 03:38 03:59 04:00 Temperature 99.9 F H Pulse Rate 103 H 103 H Pulse Rate [ 100 H From Monitor] Respiratory 32 H Rate Blood Pressure 118/79 118/79 O2 Sat by Pulse 93 92 Oximetry 12/31/19 12/31/19 12/31/19 05:00 05:27 06:00 Temperature Pulse Rate 105 H 103 H 102 H Pulse Rate [ From Monitor] Respiratory 18 18 Rate Blood Pressure 122/85 122/85 117/80 O2 Sat by Pulse 92 92 Oximetry 12/31/19 12/31/19 12/31/19 07:01 08:00 08:50 Temperature 102.0 F H Pulse Rate 107 H 94 H 99 H Pulse Rate [ From Monitor] Respiratory 19 18 Rate Blood Pressure 118/68 117/73 137/95 O2 Sat by Pulse 89 88 92 Oximetry 12/31/19 12/31/19 09:00 09:20 Temperature Pulse Rate 108 H 99 H Pulse Rate [ From Monitor] Respiratory 19 Rate Blood Pressure 137/95 O2 Sat by Pulse 98 94 Oximetry Constitutional: no acute distress, alert, other (elderly and obese male, normocephalic with mildly increased respiratory effort at rest on MVS) Eyes: non-icteric ENT: oropharynx moist, other (ETT 24 cm JASON) Neck: supple, no JVD Effort: normal Ascultation: Bilateral: diminished breath sounds, rhonchi Percussion: Bilateral: not dull Cardiovascular: irregular rhythm Gastrointestinal: normoactive bowel sounds, soft, non-tender, non-distended Integumentary: normal Extremities: no cyanosis, pulses normal, no ischemia or petechiae, edema (pedal and peripheral) Neurologic: non-focal exam (moves all extremities with extreme agitation), pupils equal and round, motor strength normal and, unable to assess Psychiatric: other (unable to assess re: AMS) CBC and BMP: 12/30/19 03:58 12/31/19 04:55 ABG, PT/INR, D-dimer: ABG ABG pH 7.439 pH Units (7.350-7.450) 12/30/19 04:59 POC ABG pCO2 52.9 mmHg (32.0-48.0) H 12/22/19 03:22 ABG pCO2 45.0 mm Hg 12/30/19 04:59 POC ABG pO2 52.3 mmHg (83-108) L 12/22/19 03:22 ABG pO2 89.3 mm Hg (80.0-90.0) 12/30/19 04:59 POC ABG HCO3 33.4 12/22/19 03:22 ABG O2 Saturation 96.3 % (95.0-99.0) 12/30/19 04:59 PT/INR, D-dimer PT 13.8 Sec. (12.2-14.9) 12/21/19 10:13 INR 1.05 (0.87-1.13) 12/21/19 10:13 Abnormal lab findings: Abnormal Labs 11/24/19 11/24/19 11/24/19 02:53 02:53 03:45 WBC 14.3 H RBC Hgb Hct MCHC RDW 17.2 H MCH Lymph % (Auto) Mathews % (Auto) Mathews # Eos # Mathews # (Auto) Eos # (Auto) Seg Neutrophils % Seg Neuts % (Manual) Baso # (Auto) Lymphocytes % (Manual) Monocytes % (Manual) Eosinophils % (Manual) Basophils % (Manual) Seg Neutrophils # Seg Neutrophils # Man 8.3 H Lymphocytes # (Manual) Monocytes # (Manual) 0.9 H Eosinophils # (Manual) Nucleated RBC % Basophils # (Manual) APTT Heparin Anti-Xa Level ABG pH 7.313 L POC ABG pO2 ABG pO2 102.8 H ABG HCO3 ABG O2 Saturation ABG Base Excess -2.9 L POC ABG pCO2 ABG Hemoglobin ABG Oxyhemoglobin Oxyhemoglobin 93.9 L Sodium Potassium Chloride Carbon Dioxide BUN Creatinine Glucose 195 H POC Glucose Lactic Acid Calcium Phosphorus Magnesium AST ALT Lactate Dehydrogenase CK-MB (CK-2) 4.3 H C-Reactive Protein NT-Pro-B Natriuret Pep 1181 H Total Protein Albumin Urine WBC (Auto) 11/24/19 11/24/19 11/24/19 04:53 04:53 10:37 WBC RBC Hgb Hct MCHC RDW MCH Lymph % (Auto) Mathews % (Auto) Mathews # Eos # Mathews # (Auto) Eos # (Auto) Seg Neutrophils % Seg Neuts % (Manual) Baso # (Auto) Lymphocytes % (Manual) Monocytes % (Manual) Eosinophils % (Manual) Basophils % (Manual) Seg Neutrophils # Seg Neutrophils # Man Lymphocytes # (Manual) Monocytes # (Manual) Eosinophils # (Manual) Nucleated RBC % Basophils # (Manual) APTT Heparin Anti-Xa Level ABG pH POC ABG pO2 ABG pO2 ABG HCO3 ABG O2 Saturation ABG Base Excess POC ABG pCO2 ABG Hemoglobin ABG Oxyhemoglobin Oxyhemoglobin Sodium Potassium Chloride Carbon Dioxide BUN Creatinine Glucose 162 H POC Glucose Lactic Acid 2.40 H* 2.50 H* Calcium Phosphorus Magnesium AST ALT Lactate Dehydrogenase 240 H CK-MB (CK-2) C-Reactive Protein NT-Pro-B Natriuret Pep Total Protein Albumin Urine WBC (Auto) 11/24/19 11/24/19 11/24/19 12:21 14:50 19:54 WBC RBC Hgb Hct MCHC RDW MCH Lymph % (Auto) Mathews % (Auto) Mathews # Eos # Mathews # (Auto) Eos # (Auto) Seg Neutrophils % Seg Neuts % (Manual) Baso # (Auto) Lymphocytes % (Manual) Monocytes % (Manual) Eosinophils % (Manual) Basophils % (Manual) Seg Neutrophils # Seg Neutrophils # Man Lymphocytes # (Manual) Monocytes # (Manual) Eosinophils # (Manual) Nucleated RBC % Basophils # (Manual) APTT Heparin Anti-Xa Level ABG pH POC ABG pO2 ABG pO2 ABG HCO3 ABG O2 Saturation ABG Base Excess POC ABG pCO2 ABG Hemoglobin ABG Oxyhemoglobin Oxyhemoglobin Sodium Potassium Chloride Carbon Dioxide BUN Creatinine Glucose POC Glucose 145 H 143 H 124 H Lactic Acid Calcium Phosphorus Magnesium AST ALT Lactate Dehydrogenase CK-MB (CK-2) C-Reactive Protein NT-Pro-B Natriuret Pep Total Protein Albumin Urine WBC (Auto) 11/25/19 11/25/19 11/25/19 00:18 03:18 05:11 WBC 13.7 H RBC Hgb Hct MCHC RDW 17.1 H MCH Lymph % (Auto) 10.8 L Mathews % (Auto) 8.7 H Mathews # 1.2 H Eos # Mathews # (Auto) Eos # (Auto) Seg Neutrophils % 80.2 H Seg Neuts % (Manual) Baso # (Auto) Lymphocytes % (Manual) Monocytes % (Manual) Eosinophils % (Manual) Basophils % (Manual) Seg Neutrophils # 11.0 H Seg Neutrophils # Man Lymphocytes # (Manual) Monocytes # (Manual) Eosinophils # (Manual) Nucleated RBC % Basophils # (Manual) APTT Heparin Anti-Xa Level ABG pH 7.333 L POC ABG pO2 ABG pO2 61.2 L ABG HCO3 ABG O2 Saturation 90.2 L ABG Base Excess POC ABG pCO2 ABG Hemoglobin 13.7 L ABG Oxyhemoglobin Oxyhemoglobin 88.2 L Sodium Potassium Chloride Carbon Dioxide BUN Creatinine Glucose POC Glucose 109 H Lactic Acid Calcium Phosphorus Magnesium AST ALT Lactate Dehydrogenase CK-MB (CK-2) C-Reactive Protein NT-Pro-B Natriuret Pep Total Protein Albumin Urine WBC (Auto) 11/25/19 11/25/19 11/26/19 05:11 11:40 03:12 WBC RBC Hgb Hct MCHC RDW MCH Lymph % (Auto) Mathews % (Auto) Mathews # Eos # Mathews # (Auto) Eos # (Auto) Seg Neutrophils % Seg Neuts % (Manual) Baso # (Auto) Lymphocytes % (Manual) Monocytes % (Manual) Eosinophils % (Manual) Basophils % (Manual) Seg Neutrophils # Seg Neutrophils # Man Lymphocytes # (Manual) Monocytes # (Manual) Eosinophils # (Manual) Nucleated RBC % Basophils # (Manual) APTT Heparin Anti-Xa Level ABG pH POC ABG pO2 ABG pO2 155.1 H ABG HCO3 27.8 H ABG O2 Saturation ABG Base Excess POC ABG pCO2 ABG Hemoglobin 12.2 L ABG Oxyhemoglobin Oxyhemoglobin Sodium Potassium Chloride Carbon Dioxide BUN 23 H Creatinine Glucose 110 H POC Glucose 108 H Lactic Acid Calcium Phosphorus Magnesium AST ALT Lactate Dehydrogenase CK-MB (CK-2) C-Reactive Protein NT-Pro-B Natriuret Pep Total Protein Albumin Urine WBC (Auto) 11/26/19 11/26/19 11/26/19 06:17 10:43 10:43 WBC 11.4 H RBC Hgb Hct MCHC RDW 17.1 H MCH Lymph % (Auto) Mathews % (Auto) Mathews # Eos # Mathews # (Auto) Eos # (Auto) Seg Neutrophils % Seg Neuts % (Manual) Baso # (Auto) Lymphocytes % (Manual) Monocytes % (Manual) Eosinophils % (Manual) Basophils % (Manual) Seg Neutrophils # Seg Neutrophils # Man Lymphocytes # (Manual) Monocytes # (Manual) Eosinophils # (Manual) Nucleated RBC % Basophils # (Manual) APTT Heparin Anti-Xa Level ABG pH POC ABG pO2 ABG pO2 ABG HCO3 ABG O2 Saturation ABG Base Excess POC ABG pCO2 ABG Hemoglobin ABG Oxyhemoglobin Oxyhemoglobin Sodium Potassium Chloride Carbon Dioxide BUN 29 H Creatinine Glucose POC Glucose 107 H Lactic Acid Calcium Phosphorus Magnesium AST ALT Lactate Dehydrogenase CK-MB (CK-2) C-Reactive Protein NT-Pro-B Natriuret Pep Total Protein Albumin Urine WBC (Auto) 11/26/19 11/27/19 11/27/19 17:11 01:53 04:11 WBC RBC Hgb Hct MCHC RDW MCH Lymph % (Auto) Mathews % (Auto) Mathews # Eos # Mathews # (Auto) Eos # (Auto) Seg Neutrophils % Seg Neuts % (Manual) Baso # (Auto) Lymphocytes % (Manual) Monocytes % (Manual) Eosinophils % (Manual) Basophils % (Manual) Seg Neutrophils # Seg Neutrophils # Man Lymphocytes # (Manual) Monocytes # (Manual) Eosinophils # (Manual) Nucleated RBC % Basophils # (Manual) APTT Heparin Anti-Xa Level ABG pH POC ABG pO2 ABG pO2 ABG HCO3 29.2 H ABG O2 Saturation ABG Base Excess 3.4 H POC ABG pCO2 ABG Hemoglobin 13.3 L ABG Oxyhemoglobin Oxyhemoglobin 94.5 L Sodium Potassium Chloride Carbon Dioxide BUN Creatinine Glucose POC Glucose 113 H 108 H Lactic Acid Calcium Phosphorus Magnesium AST ALT Lactate Dehydrogenase CK-MB (CK-2) C-Reactive Protein NT-Pro-B Natriuret Pep Total Protein Albumin Urine WBC (Auto) 11/27/19 11/28/19 11/28/19 05:27 05:00 05:25 WBC RBC Hgb Hct MCHC RDW MCH Lymph % (Auto) Mathews % (Auto) Mathews # Eos # Mathews # (Auto) Eos # (Auto) Seg Neutrophils % Seg Neuts % (Manual) Baso # (Auto) Lymphocytes % (Manual) Monocytes % (Manual) Eosinophils % (Manual) Basophils % (Manual) Seg Neutrophils # Seg Neutrophils # Man Lymphocytes # (Manual) Monocytes # (Manual) Eosinophils # (Manual) Nucleated RBC % Basophils # (Manual) APTT Heparin Anti-Xa Level ABG pH POC ABG pO2 68.1 L ABG pO2 ABG HCO3 ABG O2 Saturation ABG Base Excess POC ABG pCO2 ABG Hemoglobin ABG Oxyhemoglobin 91.2 L Oxyhemoglobin Sodium Potassium Chloride Carbon Dioxide BUN Creatinine Glucose POC Glucose 111 H 110 H Lactic Acid Calcium Phosphorus Magnesium AST ALT Lactate Dehydrogenase CK-MB (CK-2) C-Reactive Protein NT-Pro-B Natriuret Pep Total Protein Albumin Urine WBC (Auto) 11/28/19 11/28/19 11/28/19 12:08 13:47 13:47 WBC 11.3 H RBC Hgb Hct MCHC RDW 16.1 H MCH Lymph % (Auto) Mathews % (Auto) 9.9 H Mathews # 1.1 H Eos # Mathews # (Auto) Eos # (Auto) Seg Neutrophils % 71.4 H Seg Neuts % (Manual) Baso # (Auto) Lymphocytes % (Manual) Monocytes % (Manual) Eosinophils % (Manual) Basophils % (Manual) Seg Neutrophils # 8.1 H Seg Neutrophils # Man Lymphocytes # (Manual) Monocytes # (Manual) Eosinophils # (Manual) Nucleated RBC % Basophils # (Manual) APTT Heparin Anti-Xa Level ABG pH POC ABG pO2 ABG pO2 ABG HCO3 ABG O2 Saturation ABG Base Excess POC ABG pCO2 ABG Hemoglobin ABG Oxyhemoglobin Oxyhemoglobin Sodium Potassium Chloride Carbon Dioxide BUN 23 H Creatinine Glucose 123 H POC Glucose 112 H Lactic Acid Calcium Phosphorus Magnesium AST ALT Lactate Dehydrogenase CK-MB (CK-2) C-Reactive Protein NT-Pro-B Natriuret Pep Total Protein Albumin 3.7 L Urine WBC (Auto) 11/28/19 11/29/19 11/29/19 17:26 03:55 17:04 WBC RBC Hgb Hct MCHC RDW MCH Lymph % (Auto) Mathews % (Auto) Mathews # Eos # Mathews # (Auto) Eos # (Auto) Seg Neutrophils % Seg Neuts % (Manual) Baso # (Auto) Lymphocytes % (Manual) Monocytes % (Manual) Eosinophils % (Manual) Basophils % (Manual) Seg Neutrophils # Seg Neutrophils # Man Lymphocytes # (Manual) Monocytes # (Manual) Eosinophils # (Manual) Nucleated RBC % Basophils # (Manual) APTT Heparin Anti-Xa Level ABG pH POC ABG pO2 ABG pO2 65.7 L ABG HCO3 28.3 H ABG O2 Saturation 93.9 L ABG Base Excess 3.6 H POC ABG pCO2 ABG Hemoglobin 13.3 L ABG Oxyhemoglobin Oxyhemoglobin 91.5 L Sodium Potassium Chloride Carbon Dioxide BUN Creatinine Glucose POC Glucose 123 H 119 H Lactic Acid Calcium Phosphorus Magnesium AST ALT Lactate Dehydrogenase CK-MB (CK-2) C-Reactive Protein NT-Pro-B Natriuret Pep Total Protein Albumin Urine WBC (Auto) 11/30/19 11/30/19 11/30/19 04:17 04:17 04:56 WBC 13.4 H RBC Hgb Hct MCHC RDW 15.6 H MCH Lymph % (Auto) Mathews % (Auto) Mathews # Eos # Mathews # (Auto) Eos # (Auto) Seg Neutrophils % Seg Neuts % (Manual) Baso # (Auto) Lymphocytes % (Manual) Monocytes % (Manual) Eosinophils % (Manual) Basophils % (Manual) Seg Neutrophils # Seg Neutrophils # Man Lymphocytes # (Manual) Monocytes # (Manual) Eosinophils # (Manual) Nucleated RBC % Basophils # (Manual) APTT Heparin Anti-Xa Level ABG pH POC ABG pO2 ABG pO2 56.3 L ABG HCO3 29.3 H ABG O2 Saturation 91.5 L ABG Base Excess 4.7 H POC ABG pCO2 ABG Hemoglobin 12.1 L ABG Oxyhemoglobin Oxyhemoglobin 89.2 L Sodium 147 H Potassium Chloride Carbon Dioxide BUN 30 H Creatinine Glucose 124 H POC Glucose Lactic Acid Calcium Phosphorus Magnesium AST ALT Lactate Dehydrogenase CK-MB (CK-2) C-Reactive Protein NT-Pro-B Natriuret Pep Total Protein Albumin 3.8 L Urine WBC (Auto) 11/30/19 11/30/19 11/30/19 05:51 11:54 18:17 WBC RBC Hgb Hct MCHC RDW MCH Lymph % (Auto) Mathews % (Auto) Mathews # Eos # Mathews # (Auto) Eos # (Auto) Seg Neutrophils % Seg Neuts % (Manual) Baso # (Auto) Lymphocytes % (Manual) Monocytes % (Manual) Eosinophils % (Manual) Basophils % (Manual) Seg Neutrophils # Seg Neutrophils # Man Lymphocytes # (Manual) Monocytes # (Manual) Eosinophils # (Manual) Nucleated RBC % Basophils # (Manual) APTT Heparin Anti-Xa Level ABG pH POC ABG pO2 ABG pO2 ABG HCO3 ABG O2 Saturation ABG Base Excess POC ABG pCO2 ABG Hemoglobin ABG Oxyhemoglobin Oxyhemoglobin Sodium Potassium Chloride Carbon Dioxide BUN Creatinine Glucose POC Glucose 127 H 115 H 143 H Lactic Acid Calcium Phosphorus Magnesium AST ALT Lactate Dehydrogenase CK-MB (CK-2) C-Reactive Protein NT-Pro-B Natriuret Pep Total Protein Albumin Urine WBC (Auto) 12/01/19 12/01/19 12/01/19 01:18 05:22 12:16 WBC RBC Hgb Hct MCHC RDW MCH Lymph % (Auto) Mathews % (Auto) Mathews # Eos # Mathews # (Auto) Eos # (Auto) Seg Neutrophils % Seg Neuts % (Manual) Baso # (Auto) Lymphocytes % (Manual) Monocytes % (Manual) Eosinophils % (Manual) Basophils % (Manual) Seg Neutrophils # Seg Neutrophils # Man Lymphocytes # (Manual) Monocytes # (Manual) Eosinophils # (Manual) Nucleated RBC % Basophils # (Manual) APTT Heparin Anti-Xa Level ABG pH POC ABG pO2 ABG pO2 ABG HCO3 ABG O2 Saturation ABG Base Excess POC ABG pCO2 ABG Hemoglobin ABG Oxyhemoglobin Oxyhemoglobin Sodium Potassium 3.5 L Chloride 107.8 H Carbon Dioxide BUN 37 H Creatinine Glucose 157 H POC Glucose 118 H 148 H Lactic Acid Calcium 8.2 L D Phosphorus Magnesium AST 48 H ALT 60 H Lactate Dehydrogenase 194 H CK-MB (CK-2) C-Reactive Protein 8.50 H NT-Pro-B Natriuret Pep Total Protein 5.5 L Albumin 2.8 L Urine WBC (Auto) 12/01/19 12/02/19 12/02/19 18:04 00:05 05:16 WBC 11.4 H RBC Hgb Hct MCHC RDW 15.9 H MCH Lymph % (Auto) Mathews % (Auto) 9.9 H Mathews # 1.1 H Eos # Mathews # (Auto) Eos # (Auto) Seg Neutrophils % 70.3 H Seg Neuts % (Manual) Baso # (Auto) Lymphocytes % (Manual) Monocytes % (Manual) Eosinophils % (Manual) Basophils % (Manual) Seg Neutrophils # 8.0 H Seg Neutrophils # Man Lymphocytes # (Manual) Monocytes # (Manual) Eosinophils # (Manual) Nucleated RBC % Basophils # (Manual) APTT Heparin Anti-Xa Level ABG pH POC ABG pO2 ABG pO2 ABG HCO3 ABG O2 Saturation ABG Base Excess POC ABG pCO2 ABG Hemoglobin ABG Oxyhemoglobin Oxyhemoglobin Sodium Potassium Chloride Carbon Dioxide BUN Creatinine Glucose POC Glucose 143 H 107 H Lactic Acid Calcium Phosphorus Magnesium AST ALT Lactate Dehydrogenase CK-MB (CK-2) C-Reactive Protein NT-Pro-B Natriuret Pep Total Protein Albumin Urine WBC (Auto) 12/02/19 12/02/19 12/02/19 05:16 06:03 11:52 WBC RBC Hgb Hct MCHC RDW MCH Lymph % (Auto) Mathews % (Auto) Mathews # Eos # Mathews # (Auto) Eos # (Auto) Seg Neutrophils % Seg Neuts % (Manual) Baso # (Auto) Lymphocytes % (Manual) Monocytes % (Manual) Eosinophils % (Manual) Basophils % (Manual) Seg Neutrophils # Seg Neutrophils # Man Lymphocytes # (Manual) Monocytes # (Manual) Eosinophils # (Manual) Nucleated RBC % Basophils # (Manual) APTT Heparin Anti-Xa Level ABG pH POC ABG pO2 ABG pO2 ABG HCO3 ABG O2 Saturation ABG Base Excess POC ABG pCO2 ABG Hemoglobin ABG Oxyhemoglobin Oxyhemoglobin Sodium 146 H Potassium Chloride Carbon Dioxide BUN 28 H Creatinine Glucose 123 H POC Glucose 110 H 152 H Lactic Acid Calcium Phosphorus Magnesium AST ALT Lactate Dehydrogenase CK-MB (CK-2) C-Reactive Protein NT-Pro-B Natriuret Pep Total Protein Albumin Urine WBC (Auto) 12/02/19 12/02/19 12/02/19 12:58 17:58 23:36 WBC RBC Hgb Hct MCHC RDW MCH Lymph % (Auto) Mathews % (Auto) Mathews # Eos # Mathews # (Auto) Eos # (Auto) Seg Neutrophils % Seg Neuts % (Manual) Baso # (Auto) Lymphocytes % (Manual) Monocytes % (Manual) Eosinophils % (Manual) Basophils % (Manual) Seg Neutrophils # Seg Neutrophils # Man Lymphocytes # (Manual) Monocytes # (Manual) Eosinophils # (Manual) Nucleated RBC % Basophils # (Manual) APTT Heparin Anti-Xa Level ABG pH POC ABG pO2 78.1 L ABG pO2 ABG HCO3 ABG O2 Saturation ABG Base Excess POC ABG pCO2 ABG Hemoglobin ABG Oxyhemoglobin Oxyhemoglobin Sodium Potassium Chloride Carbon Dioxide BUN Creatinine Glucose POC Glucose 120 H 123 H Lactic Acid Calcium Phosphorus Magnesium AST ALT Lactate Dehydrogenase CK-MB (CK-2) C-Reactive Protein NT-Pro-B Natriuret Pep Total Protein Albumin Urine WBC (Auto) 12/03/19 12/03/19 12/03/19 06:03 06:14 11:46 WBC RBC Hgb Hct MCHC RDW MCH Lymph % (Auto) Mathews % (Auto) Mathews # Eos # Mathews # (Auto) Eos # (Auto) Seg Neutrophils % Seg Neuts % (Manual) Baso # (Auto) Lymphocytes % (Manual) Monocytes % (Manual) Eosinophils % (Manual) Basophils % (Manual) Seg Neutrophils # Seg Neutrophils # Man Lymphocytes # (Manual) Monocytes # (Manual) Eosinophils # (Manual) Nucleated RBC % Basophils # (Manual) APTT Heparin Anti-Xa Level ABG pH POC ABG pO2 ABG pO2 ABG HCO3 ABG O2 Saturation ABG Base Excess POC ABG pCO2 ABG Hemoglobin ABG Oxyhemoglobin Oxyhemoglobin Sodium Potassium Chloride Carbon Dioxide BUN Creatinine Glucose POC Glucose 142 H 130 H Lactic Acid Calcium Phosphorus Magnesium AST ALT Lactate Dehydrogenase CK-MB (CK-2) C-Reactive Protein NT-Pro-B Natriuret Pep Total Protein Albumin Urine WBC (Auto) 8.0 H 12/03/19 12/03/19 12/04/19 15:50 17:39 00:04 WBC RBC Hgb Hct MCHC RDW MCH Lymph % (Auto) Mathews % (Auto) Mathews # Eos # Mathews # (Auto) Eos # (Auto) Seg Neutrophils % Seg Neuts % (Manual) Baso # (Auto) Lymphocytes % (Manual) Monocytes % (Manual) Eosinophils % (Manual) Basophils % (Manual) Seg Neutrophils # Seg Neutrophils # Man Lymphocytes # (Manual) Monocytes # (Manual) Eosinophils # (Manual) Nucleated RBC % Basophils # (Manual) APTT Heparin Anti-Xa Level ABG pH POC ABG pO2 ABG pO2 ABG HCO3 ABG O2 Saturation ABG Base Excess POC ABG pCO2 ABG Hemoglobin ABG Oxyhemoglobin Oxyhemoglobin Sodium Potassium Chloride Carbon Dioxide BUN Creatinine Glucose POC Glucose 146 H 133 H Lactic Acid Calcium Phosphorus 2.40 L Magnesium AST ALT Lactate Dehydrogenase CK-MB (CK-2) C-Reactive Protein NT-Pro-B Natriuret Pep Total Protein Albumin Urine WBC (Auto) 12/04/19 12/04/19 12/04/19 03:58 03:58 05:22 WBC 12.5 H RBC Hgb 11.2 L Hct 35.2 L MCHC RDW 16.0 H MCH Lymph % (Auto) Mathews % (Auto) 9.6 H Mathews # 1.2 H Eos # 0.5 H Mathews # (Auto) Eos # (Auto) Seg Neutrophils % Seg Neuts % (Manual) Baso # (Auto) Lymphocytes % (Manual) Monocytes % (Manual) Eosinophils % (Manual) Basophils % (Manual) Seg Neutrophils # 8.6 H Seg Neutrophils # Man Lymphocytes # (Manual) Monocytes # (Manual) Eosinophils # (Manual) Nucleated RBC % Basophils # (Manual) APTT Heparin Anti-Xa Level ABG pH POC ABG pO2 ABG pO2 ABG HCO3 ABG O2 Saturation ABG Base Excess POC ABG pCO2 ABG Hemoglobin ABG Oxyhemoglobin Oxyhemoglobin Sodium 146 H Potassium Chloride 108.6 H Carbon Dioxide BUN 30 H Creatinine 0.7 L Glucose 121 H POC Glucose 132 H Lactic Acid Calcium Phosphorus Magnesium AST ALT Lactate Dehydrogenase CK-MB (CK-2) C-Reactive Protein NT-Pro-B Natriuret Pep Total Protein Albumin Urine WBC (Auto) 12/04/19 12/04/19 12/05/19 13:26 18:43 00:19 WBC RBC Hgb Hct MCHC RDW MCH Lymph % (Auto) Mathews % (Auto) Mathews # Eos # Mathews # (Auto) Eos # (Auto) Seg Neutrophils % Seg Neuts % (Manual) Baso # (Auto) Lymphocytes % (Manual) Monocytes % (Manual) Eosinophils % (Manual) Basophils % (Manual) Seg Neutrophils # Seg Neutrophils # Man Lymphocytes # (Manual) Monocytes # (Manual) Eosinophils # (Manual) Nucleated RBC % Basophils # (Manual) APTT Heparin Anti-Xa Level ABG pH POC ABG pO2 ABG pO2 ABG HCO3 ABG O2 Saturation ABG Base Excess POC ABG pCO2 ABG Hemoglobin ABG Oxyhemoglobin Oxyhemoglobin Sodium Potassium Chloride Carbon Dioxide BUN Creatinine Glucose POC Glucose 185 H 156 H 150 H Lactic Acid Calcium Phosphorus Magnesium AST ALT Lactate Dehydrogenase CK-MB (CK-2) C-Reactive Protein NT-Pro-B Natriuret Pep Total Protein Albumin Urine WBC (Auto) 12/05/19 12/05/19 12/05/19 03:37 03:37 05:14 WBC 16.3 H RBC Hgb 11.4 L Hct MCHC RDW 15.6 H MCH Lymph % (Auto) 9.9 L Mathews % (Auto) 9.7 H Mathews # 1.6 H Eos # Mathews # (Auto) Eos # (Auto) Seg Neutrophils % 78.0 H Seg Neuts % (Manual) Baso # (Auto) Lymphocytes % (Manual) Monocytes % (Manual) Eosinophils % (Manual) Basophils % (Manual) Seg Neutrophils # 12.7 H Seg Neutrophils # Man Lymphocytes # (Manual) Monocytes # (Manual) Eosinophils # (Manual) Nucleated RBC % Basophils # (Manual) APTT Heparin Anti-Xa Level ABG pH POC ABG pO2 ABG pO2 ABG HCO3 ABG O2 Saturation ABG Base Excess POC ABG pCO2 ABG Hemoglobin ABG Oxyhemoglobin Oxyhemoglobin Sodium 146 H Potassium Chloride 107.2 H Carbon Dioxide BUN 27 H Creatinine 0.7 L Glucose 171 H POC Glucose 168 H Lactic Acid Calcium Phosphorus Magnesium AST ALT Lactate Dehydrogenase CK-MB (CK-2) C-Reactive Protein NT-Pro-B Natriuret Pep Total Protein Albumin Urine WBC (Auto) 12/05/19 12/05/19 12/05/19 12:31 18:10 23:58 WBC RBC Hgb Hct MCHC RDW MCH Lymph % (Auto) Mathews % (Auto) Mathews # Eos # Mathews # (Auto) Eos # (Auto) Seg Neutrophils % Seg Neuts % (Manual) Baso # (Auto) Lymphocytes % (Manual) Monocytes % (Manual) Eosinophils % (Manual) Basophils % (Manual) Seg Neutrophils # Seg Neutrophils # Man Lymphocytes # (Manual) Monocytes # (Manual) Eosinophils # (Manual) Nucleated RBC % Basophils # (Manual) APTT Heparin Anti-Xa Level ABG pH POC ABG pO2 ABG pO2 ABG HCO3 ABG O2 Saturation ABG Base Excess POC ABG pCO2 ABG Hemoglobin ABG Oxyhemoglobin Oxyhemoglobin Sodium Potassium Chloride Carbon Dioxide BUN Creatinine Glucose POC Glucose 159 H 198 H 115 H Lactic Acid Calcium Phosphorus Magnesium AST ALT Lactate Dehydrogenase CK-MB (CK-2) C-Reactive Protein NT-Pro-B Natriuret Pep Total Protein Albumin Urine WBC (Auto) 12/06/19 12/06/19 12/06/19 05:24 05:24 05:25 WBC 14.9 H RBC Hgb 10.8 L Hct 34.0 L MCHC RDW 15.6 H MCH Lymph % (Auto) 10.7 L Mathews % (Auto) 8.3 H Mathews # 1.2 H Eos # Mathews # (Auto) Eos # (Auto) Seg Neutrophils % 78.7 H Seg Neuts % (Manual) Baso # (Auto) Lymphocytes % (Manual) Monocytes % (Manual) Eosinophils % (Manual) Basophils % (Manual) Seg Neutrophils # 11.7 H Seg Neutrophils # Man Lymphocytes # (Manual) Monocytes # (Manual) Eosinophils # (Manual) Nucleated RBC % Basophils # (Manual) APTT Heparin Anti-Xa Level ABG pH POC ABG pO2 ABG pO2 ABG HCO3 ABG O2 Saturation ABG Base Excess POC ABG pCO2 ABG Hemoglobin ABG Oxyhemoglobin Oxyhemoglobin Sodium 148 H Potassium 5.1 H Chloride 107.6 H Carbon Dioxide BUN 27 H Creatinine 0.7 L Glucose 155 H POC Glucose 157 H Lactic Acid Calcium Phosphorus Magnesium AST ALT Lactate Dehydrogenase CK-MB (CK-2) C-Reactive Protein NT-Pro-B Natriuret Pep Total Protein Albumin Urine WBC (Auto) 12/07/19 12/07/19 12/07/19 00:13 05:34 11:33 WBC RBC Hgb Hct MCHC RDW MCH Lymph % (Auto) Mathews % (Auto) Mathews # Eos # Mathews # (Auto) Eos # (Auto) Seg Neutrophils % Seg Neuts % (Manual) Baso # (Auto) Lymphocytes % (Manual) Monocytes % (Manual) Eosinophils % (Manual) Basophils % (Manual) Seg Neutrophils # Seg Neutrophils # Man Lymphocytes # (Manual) Monocytes # (Manual) Eosinophils # (Manual) Nucleated RBC % Basophils # (Manual) APTT Heparin Anti-Xa Level ABG pH POC ABG pO2 ABG pO2 ABG HCO3 ABG O2 Saturation ABG Base Excess POC ABG pCO2 ABG Hemoglobin ABG Oxyhemoglobin Oxyhemoglobin Sodium Potassium Chloride Carbon Dioxide BUN Creatinine Glucose POC Glucose 142 H 111 H 169 H Lactic Acid Calcium Phosphorus Magnesium AST ALT Lactate Dehydrogenase CK-MB (CK-2) C-Reactive Protein NT-Pro-B Natriuret Pep Total Protein Albumin Urine WBC (Auto) 12/07/19 12/07/19 12/07/19 12:41 13:25 18:19 WBC 12.4 H RBC 3.53 L Hgb 10.2 L Hct 32.1 L MCHC RDW 15.3 H MCH Lymph % (Auto) 10.6 L Mathews % (Auto) 7.8 H Mathews # 1.0 H Eos # Mathews # (Auto) Eos # (Auto) Seg Neutrophils % 77.6 H Seg Neuts % (Manual) Baso # (Auto) Lymphocytes % (Manual) Monocytes % (Manual) Eosinophils % (Manual) Basophils % (Manual) Seg Neutrophils # 9.6 H Seg Neutrophils # Man Lymphocytes # (Manual) Monocytes # (Manual) Eosinophils # (Manual) Nucleated RBC % Basophils # (Manual) APTT Heparin Anti-Xa Level ABG pH POC ABG pO2 ABG pO2 ABG HCO3 ABG O2 Saturation ABG Base Excess POC ABG pCO2 ABG Hemoglobin ABG Oxyhemoglobin Oxyhemoglobin Sodium 149 H Potassium Chloride 108.4 H Carbon Dioxide BUN 26 H Creatinine 0.6 L Glucose 149 H POC Glucose 164 H Lactic Acid Calcium Phosphorus Magnesium 2.60 H AST 121 H ALT 145 H Lactate Dehydrogenase CK-MB (CK-2) C-Reactive Protein NT-Pro-B Natriuret Pep Total Protein Albumin 2.6 L Urine WBC (Auto) 12/07/19 12/08/19 12/08/19 22:25 00:02 03:55 WBC 13.3 H RBC 3.40 L Hgb 9.7 L Hct 30.8 L MCHC 31 L RDW 15.5 H MCH Lymph % (Auto) Mathews % (Auto) 8.1 H Mathews # 1.1 H Eos # Mathews # (Auto) Eos # (Auto) Seg Neutrophils % 73.0 H Seg Neuts % (Manual) Baso # (Auto) Lymphocytes % (Manual) Monocytes % (Manual) Eosinophils % (Manual) Basophils % (Manual) Seg Neutrophils # 9.7 H Seg Neutrophils # Man Lymphocytes # (Manual) Monocytes # (Manual) Eosinophils # (Manual) Nucleated RBC % Basophils # (Manual) APTT Heparin Anti-Xa Level 0.12 L ABG pH POC ABG pO2 ABG pO2 ABG HCO3 ABG O2 Saturation ABG Base Excess POC ABG pCO2 ABG Hemoglobin ABG Oxyhemoglobin Oxyhemoglobin Sodium Potassium Chloride Carbon Dioxide BUN Creatinine Glucose POC Glucose 151 H Lactic Acid Calcium Phosphorus Magnesium AST ALT Lactate Dehydrogenase CK-MB (CK-2) C-Reactive Protein NT-Pro-B Natriuret Pep Total Protein Albumin Urine WBC (Auto) 12/08/19 12/08/19 12/08/19 03:55 05:21 06:01 WBC RBC Hgb Hct MCHC RDW MCH Lymph % (Auto) Mathews % (Auto) Mathews # Eos # Mathews # (Auto) Eos # (Auto) Seg Neutrophils % Seg Neuts % (Manual) Baso # (Auto) Lymphocytes % (Manual) Monocytes % (Manual) Eosinophils % (Manual) Basophils % (Manual) Seg Neutrophils # Seg Neutrophils # Man Lymphocytes # (Manual) Monocytes # (Manual) Eosinophils # (Manual) Nucleated RBC % Basophils # (Manual) APTT Heparin Anti-Xa Level 0.20 L ABG pH POC ABG pO2 ABG pO2 ABG HCO3 ABG O2 Saturation ABG Base Excess POC ABG pCO2 ABG Hemoglobin ABG Oxyhemoglobin Oxyhemoglobin Sodium 149 H Potassium Chloride 108.0 H Carbon Dioxide BUN 28 H Creatinine 0.6 L Glucose 144 H POC Glucose 143 H Lactic Acid Calcium Phosphorus Magnesium AST 98 H ALT 145 H Lactate Dehydrogenase CK-MB (CK-2) C-Reactive Protein NT-Pro-B Natriuret Pep Total Protein 6.0 L Albumin 2.4 L Urine WBC (Auto) 12/08/19 12/08/19 12/08/19 12:08 18:11 23:53 WBC RBC Hgb Hct MCHC RDW MCH Lymph % (Auto) Mathews % (Auto) Mathews # Eos # Mathews # (Auto) Eos # (Auto) Seg Neutrophils % Seg Neuts % (Manual) Baso # (Auto) Lymphocytes % (Manual) Monocytes % (Manual) Eosinophils % (Manual) Basophils % (Manual) Seg Neutrophils # Seg Neutrophils # Man Lymphocytes # (Manual) Monocytes # (Manual) Eosinophils # (Manual) Nucleated RBC % Basophils # (Manual) APTT Heparin Anti-Xa Level ABG pH POC ABG pO2 ABG pO2 ABG HCO3 ABG O2 Saturation ABG Base Excess POC ABG pCO2 ABG Hemoglobin ABG Oxyhemoglobin Oxyhemoglobin Sodium Potassium Chloride Carbon Dioxide BUN Creatinine Glucose POC Glucose 172 H 122 H 162 H Lactic Acid Calcium Phosphorus Magnesium AST ALT Lactate Dehydrogenase CK-MB (CK-2) C-Reactive Protein NT-Pro-B Natriuret Pep Total Protein Albumin Urine WBC (Auto) 12/09/19 12/09/19 12/09/19 04:03 04:03 05:53 WBC RBC Hgb 9.1 L Hct 28.9 L MCHC RDW MCH Lymph % (Auto) Mathews % (Auto) Mathews # Eos # Mathews # (Auto) Eos # (Auto) Seg Neutrophils % Seg Neuts % (Manual) Baso # (Auto) Lymphocytes % (Manual) Monocytes % (Manual) Eosinophils % (Manual) Basophils % (Manual) Seg Neutrophils # Seg Neutrophils # Man Lymphocytes # (Manual) Monocytes # (Manual) Eosinophils # (Manual) Nucleated RBC % Basophils # (Manual) APTT Heparin Anti-Xa Level 0.15 L ABG pH POC ABG pO2 ABG pO2 ABG HCO3 ABG O2 Saturation ABG Base Excess POC ABG pCO2 ABG Hemoglobin ABG Oxyhemoglobin Oxyhemoglobin Sodium Potassium Chloride Carbon Dioxide BUN Creatinine Glucose POC Glucose 124 H Lactic Acid Calcium Phosphorus Magnesium AST ALT Lactate Dehydrogenase CK-MB (CK-2) C-Reactive Protein NT-Pro-B Natriuret Pep Total Protein Albumin Urine WBC (Auto) 12/09/19 12/09/19 12/10/19 09:43 12:41 00:13 WBC RBC Hgb Hct MCHC RDW MCH Lymph % (Auto) Mathews % (Auto) Mathews # Eos # Mathews # (Auto) Eos # (Auto) Seg Neutrophils % Seg Neuts % (Manual) Baso # (Auto) Lymphocytes % (Manual) Monocytes % (Manual) Eosinophils % (Manual) Basophils % (Manual) Seg Neutrophils # Seg Neutrophils # Man Lymphocytes # (Manual) Monocytes # (Manual) Eosinophils # (Manual) Nucleated RBC % Basophils # (Manual) APTT Heparin Anti-Xa Level ABG pH POC ABG pO2 ABG pO2 ABG HCO3 ABG O2 Saturation ABG Base Excess POC ABG pCO2 ABG Hemoglobin ABG Oxyhemoglobin Oxyhemoglobin Sodium Potassium Chloride Carbon Dioxide BUN 25 H Creatinine 0.6 L Glucose 131 H POC Glucose 109 H 120 H Lactic Acid Calcium Phosphorus Magnesium AST ALT Lactate Dehydrogenase CK-MB (CK-2) C-Reactive Protein NT-Pro-B Natriuret Pep Total Protein Albumin Urine WBC (Auto) 12/10/19 12/10/19 12/10/19 04:14 04:14 12:00 WBC 13.3 H RBC 3.34 L Hgb 9.6 L Hct 30.4 L MCHC RDW 15.4 H MCH Lymph % (Auto) Mathews % (Auto) Mathews # Eos # Mathews # (Auto) Eos # (Auto) Seg Neutrophils % Seg Neuts % (Manual) 75.0 H Baso # (Auto) Lymphocytes % (Manual) 13.0 L Monocytes % (Manual) 8.0 H Eosinophils % (Manual) Basophils % (Manual) 2.0 H Seg Neutrophils # Seg Neutrophils # Man 10.0 H Lymphocytes # (Manual) Monocytes # (Manual) 1.1 H Eosinophils # (Manual) Nucleated RBC % Basophils # (Manual) 0.3 H APTT Heparin Anti-Xa Level ABG pH POC ABG pO2 ABG pO2 ABG HCO3 ABG O2 Saturation ABG Base Excess POC ABG pCO2 ABG Hemoglobin ABG Oxyhemoglobin Oxyhemoglobin Sodium 147 H Potassium Chloride 108.3 H Carbon Dioxide BUN 21 H Creatinine 0.6 L Glucose 104 H POC Glucose 133 H Lactic Acid Calcium Phosphorus Magnesium AST ALT Lactate Dehydrogenase CK-MB (CK-2) C-Reactive Protein NT-Pro-B Natriuret Pep Total Protein Albumin Urine WBC (Auto) 12/10/19 12/10/19 12/11/19 18:44 21:20 00:08 WBC 14.9 H RBC 3.36 L Hgb 9.6 L Hct 30.5 L MCHC RDW 15.4 H MCH Lymph % (Auto) Mathews % (Auto) Mathews # Eos # Mathews # (Auto) Eos # (Auto) Seg Neutrophils % Seg Neuts % (Manual) Baso # (Auto) Lymphocytes % (Manual) Monocytes % (Manual) Eosinophils % (Manual) Basophils % (Manual) Seg Neutrophils # Seg Neutrophils # Man Lymphocytes # (Manual) Monocytes # (Manual) Eosinophils # (Manual) Nucleated RBC % Basophils # (Manual) APTT Heparin Anti-Xa Level ABG pH POC ABG pO2 ABG pO2 ABG HCO3 ABG O2 Saturation ABG Base Excess POC ABG pCO2 ABG Hemoglobin ABG Oxyhemoglobin Oxyhemoglobin Sodium Potassium Chloride Carbon Dioxide BUN Creatinine Glucose POC Glucose 119 H 134 H Lactic Acid Calcium Phosphorus Magnesium AST ALT Lactate Dehydrogenase CK-MB (CK-2) C-Reactive Protein NT-Pro-B Natriuret Pep Total Protein Albumin Urine WBC (Auto) 12/11/19 12/11/19 12/11/19 03:54 07:28 08:36 WBC 11.9 H RBC 3.25 L Hgb 9.6 L Hct 29.2 L MCHC RDW 15.7 H MCH Lymph % (Auto) Mathews % (Auto) Mathews # Eos # Mathews # (Auto) Eos # (Auto) Seg Neutrophils % Seg Neuts % (Manual) Baso # (Auto) Lymphocytes % (Manual) Monocytes % (Manual) Eosinophils % (Manual) Basophils % (Manual) Seg Neutrophils # Seg Neutrophils # Man Lymphocytes # (Manual) Monocytes # (Manual) Eosinophils # (Manual) Nucleated RBC % Basophils # (Manual) APTT Heparin Anti-Xa Level 0.10 L 0.16 L ABG pH POC ABG pO2 ABG pO2 ABG HCO3 ABG O2 Saturation ABG Base Excess POC ABG pCO2 ABG Hemoglobin ABG Oxyhemoglobin Oxyhemoglobin Sodium Potassium Chloride Carbon Dioxide BUN Creatinine Glucose POC Glucose Lactic Acid Calcium Phosphorus Magnesium AST ALT Lactate Dehydrogenase CK-MB (CK-2) C-Reactive Protein NT-Pro-B Natriuret Pep Total Protein Albumin Urine WBC (Auto) 12/11/19 12/11/19 12/11/19 08:36 11:45 17:15 WBC RBC Hgb Hct MCHC RDW MCH Lymph % (Auto) Mathews % (Auto) Mathews # Eos # Mathews # (Auto) Eos # (Auto) Seg Neutrophils % Seg Neuts % (Manual) Baso # (Auto) Lymphocytes % (Manual) Monocytes % (Manual) Eosinophils % (Manual) Basophils % (Manual) Seg Neutrophils # Seg Neutrophils # Man Lymphocytes # (Manual) Monocytes # (Manual) Eosinophils # (Manual) Nucleated RBC % Basophils # (Manual) APTT Heparin Anti-Xa Level ABG pH POC ABG pO2 ABG pO2 ABG HCO3 ABG O2 Saturation ABG Base Excess POC ABG pCO2 ABG Hemoglobin ABG Oxyhemoglobin Oxyhemoglobin Sodium Potassium Chloride Carbon Dioxide BUN Creatinine 0.5 L Glucose 128 H POC Glucose 136 H 109 H Lactic Acid Calcium Phosphorus Magnesium AST ALT Lactate Dehydrogenase CK-MB (CK-2) C-Reactive Protein NT-Pro-B Natriuret Pep Total Protein Albumin Urine WBC (Auto) 12/12/19 12/12/19 12/12/19 00:03 05:53 05:53 WBC RBC Hgb 8.8 L Hct 27.6 L MCHC RDW MCH Lymph % (Auto) Mathews % (Auto) Mathews # Eos # Mathews # (Auto) Eos # (Auto) Seg Neutrophils % Seg Neuts % (Manual) Baso # (Auto) Lymphocytes % (Manual) Monocytes % (Manual) Eosinophils % (Manual) Basophils % (Manual) Seg Neutrophils # Seg Neutrophils # Man Lymphocytes # (Manual) Monocytes # (Manual) Eosinophils # (Manual) Nucleated RBC % Basophils # (Manual) APTT Heparin Anti-Xa Level 0.22 L ABG pH POC ABG pO2 ABG pO2 ABG HCO3 ABG O2 Saturation ABG Base Excess POC ABG pCO2 ABG Hemoglobin ABG Oxyhemoglobin Oxyhemoglobin Sodium Potassium Chloride Carbon Dioxide BUN Creatinine Glucose POC Glucose 116 H Lactic Acid Calcium Phosphorus Magnesium AST ALT Lactate Dehydrogenase CK-MB (CK-2) C-Reactive Protein NT-Pro-B Natriuret Pep Total Protein Albumin Urine WBC (Auto) 12/12/19 12/12/19 12/12/19 09:38 12:18 17:44 WBC RBC Hgb Hct MCHC RDW MCH Lymph % (Auto) Mathews % (Auto) Mathews # Eos # Mathews # (Auto) Eos # (Auto) Seg Neutrophils % Seg Neuts % (Manual) Baso # (Auto) Lymphocytes % (Manual) Monocytes % (Manual) Eosinophils % (Manual) Basophils % (Manual) Seg Neutrophils # Seg Neutrophils # Man Lymphocytes # (Manual) Monocytes # (Manual) Eosinophils # (Manual) Nucleated RBC % Basophils # (Manual) APTT Heparin Anti-Xa Level ABG pH POC ABG pO2 ABG pO2 ABG HCO3 ABG O2 Saturation ABG Base Excess POC ABG pCO2 ABG Hemoglobin ABG Oxyhemoglobin Oxyhemoglobin Sodium Potassium Chloride Carbon Dioxide BUN Creatinine Glucose POC Glucose 115 H 146 H 146 H Lactic Acid Calcium Phosphorus Magnesium AST ALT Lactate Dehydrogenase CK-MB (CK-2) C-Reactive Protein NT-Pro-B Natriuret Pep Total Protein Albumin Urine WBC (Auto) 12/12/19 12/13/19 12/13/19 23:33 05:32 05:32 WBC 13.1 H RBC 3.27 L Hgb 9.5 L Hct 29.3 L MCHC RDW 15.6 H MCH Lymph % (Auto) Mathews % (Auto) Mathews # Eos # Mathews # (Auto) Eos # (Auto) Seg Neutrophils % Seg Neuts % (Manual) 74.0 H Baso # (Auto) Lymphocytes % (Manual) 8.0 L Monocytes % (Manual) 9.0 H Eosinophils % (Manual) 5.0 H Basophils % (Manual) Seg Neutrophils # Seg Neutrophils # Man 9.7 H Lymphocytes # (Manual) 1.0 L Monocytes # (Manual) 1.2 H Eosinophils # (Manual) 0.7 H Nucleated RBC % Basophils # (Manual) APTT Heparin Anti-Xa Level 0.20 L ABG pH POC ABG pO2 ABG pO2 ABG HCO3 ABG O2 Saturation ABG Base Excess POC ABG pCO2 ABG Hemoglobin ABG Oxyhemoglobin Oxyhemoglobin Sodium Potassium Chloride Carbon Dioxide BUN Creatinine Glucose POC Glucose 126 H Lactic Acid Calcium Phosphorus Magnesium AST ALT Lactate Dehydrogenase CK-MB (CK-2) C-Reactive Protein NT-Pro-B Natriuret Pep Total Protein Albumin Urine WBC (Auto) 12/13/19 12/13/19 12/13/19 05:32 05:46 11:57 WBC RBC Hgb Hct MCHC RDW MCH Lymph % (Auto) Mathews % (Auto) Mathews # Eos # Mathews # (Auto) Eos # (Auto) Seg Neutrophils % Seg Neuts % (Manual) Baso # (Auto) Lymphocytes % (Manual) Monocytes % (Manual) Eosinophils % (Manual) Basophils % (Manual) Seg Neutrophils # Seg Neutrophils # Man Lymphocytes # (Manual) Monocytes # (Manual) Eosinophils # (Manual) Nucleated RBC % Basophils # (Manual) APTT Heparin Anti-Xa Level ABG pH POC ABG pO2 ABG pO2 ABG HCO3 ABG O2 Saturation ABG Base Excess POC ABG pCO2 ABG Hemoglobin ABG Oxyhemoglobin Oxyhemoglobin Sodium Potassium Chloride Carbon Dioxide 31 H BUN Creatinine 0.6 L Glucose 114 H POC Glucose 118 H 133 H Lactic Acid Calcium Phosphorus Magnesium AST ALT Lactate Dehydrogenase CK-MB (CK-2) C-Reactive Protein NT-Pro-B Natriuret Pep Total Protein Albumin Urine WBC (Auto) 12/13/19 12/13/19 12/14/19 17:44 23:46 05:32 WBC RBC Hgb Hct MCHC RDW MCH Lymph % (Auto) Mathews % (Auto) Mathews # Eos # Mathews # (Auto) Eos # (Auto) Seg Neutrophils % Seg Neuts % (Manual) Baso # (Auto) Lymphocytes % (Manual) Monocytes % (Manual) Eosinophils % (Manual) Basophils % (Manual) Seg Neutrophils # Seg Neutrophils # Man Lymphocytes # (Manual) Monocytes # (Manual) Eosinophils # (Manual) Nucleated RBC % Basophils # (Manual) APTT Heparin Anti-Xa Level ABG pH POC ABG pO2 ABG pO2 ABG HCO3 ABG O2 Saturation ABG Base Excess POC ABG pCO2 ABG Hemoglobin ABG Oxyhemoglobin Oxyhemoglobin Sodium Potassium Chloride Carbon Dioxide BUN Creatinine Glucose POC Glucose 161 H 126 H 139 H Lactic Acid Calcium Phosphorus Magnesium AST ALT Lactate Dehydrogenase CK-MB (CK-2) C-Reactive Protein NT-Pro-B Natriuret Pep Total Protein Albumin Urine WBC (Auto) 12/14/19 12/14/19 12/14/19 06:03 06:03 09:37 WBC RBC Hgb 9.6 L Hct 30.4 L MCHC RDW MCH Lymph % (Auto) Mathews % (Auto) Mathews # Eos # Mathews # (Auto) Eos # (Auto) Seg Neutrophils % Seg Neuts % (Manual) Baso # (Auto) Lymphocytes % (Manual) Monocytes % (Manual) Eosinophils % (Manual) Basophils % (Manual) Seg Neutrophils # Seg Neutrophils # Man Lymphocytes # (Manual) Monocytes # (Manual) Eosinophils # (Manual) Nucleated RBC % Basophils # (Manual) APTT Heparin Anti-Xa Level 0.24 L ABG pH POC ABG pO2 ABG pO2 ABG HCO3 ABG O2 Saturation ABG Base Excess POC ABG pCO2 ABG Hemoglobin ABG Oxyhemoglobin Oxyhemoglobin Sodium Potassium Chloride Carbon Dioxide BUN Creatinine 0.6 L Glucose 162 H POC Glucose Lactic Acid Calcium Phosphorus Magnesium AST 71 H ALT 118 H Lactate Dehydrogenase CK-MB (CK-2) C-Reactive Protein NT-Pro-B Natriuret Pep Total Protein 6.2 L Albumin 2.3 L Urine WBC (Auto) 12/14/19 12/14/19 12/15/19 12:06 18:18 00:19 WBC RBC Hgb Hct MCHC RDW MCH Lymph % (Auto) Mathews % (Auto) Mathews # Eos # Mathews # (Auto) Eos # (Auto) Seg Neutrophils % Seg Neuts % (Manual) Baso # (Auto) Lymphocytes % (Manual) Monocytes % (Manual) Eosinophils % (Manual) Basophils % (Manual) Seg Neutrophils # Seg Neutrophils # Man Lymphocytes # (Manual) Monocytes # (Manual) Eosinophils # (Manual) Nucleated RBC % Basophils # (Manual) APTT Heparin Anti-Xa Level ABG pH POC ABG pO2 ABG pO2 ABG HCO3 ABG O2 Saturation ABG Base Excess POC ABG pCO2 ABG Hemoglobin ABG Oxyhemoglobin Oxyhemoglobin Sodium Potassium Chloride Carbon Dioxide BUN Creatinine Glucose POC Glucose 147 H 166 H 123 H Lactic Acid Calcium Phosphorus Magnesium AST ALT Lactate Dehydrogenase CK-MB (CK-2) C-Reactive Protein NT-Pro-B Natriuret Pep Total Protein Albumin Urine WBC (Auto) 12/15/19 12/15/19 12/15/19 05:28 05:29 05:29 WBC 14.9 H RBC 3.19 L Hgb 9.1 L Hct 28.7 L MCHC RDW 16.0 H MCH Lymph % (Auto) Mathews % (Auto) Mathews # Eos # Mathews # (Auto) Eos # (Auto) Seg Neutrophils % Seg Neuts % (Manual) Baso # (Auto) Lymphocytes % (Manual) Monocytes % (Manual) Eosinophils % (Manual) Basophils % (Manual) Seg Neutrophils # Seg Neutrophils # Man Lymphocytes # (Manual) Monocytes # (Manual) Eosinophils # (Manual) Nucleated RBC % Basophils # (Manual) APTT Heparin Anti-Xa Level 0.19 L ABG pH POC ABG pO2 ABG pO2 ABG HCO3 ABG O2 Saturation ABG Base Excess POC ABG pCO2 ABG Hemoglobin ABG Oxyhemoglobin Oxyhemoglobin Sodium Potassium Chloride Carbon Dioxide BUN Creatinine 0.6 L Glucose 110 H POC Glucose Lactic Acid Calcium Phosphorus Magnesium AST ALT Lactate Dehydrogenase CK-MB (CK-2) C-Reactive Protein NT-Pro-B Natriuret Pep Total Protein Albumin Urine WBC (Auto) 12/15/19 12/15/19 12/15/19 05:53 11:50 17:26 WBC RBC Hgb Hct MCHC RDW MCH Lymph % (Auto) Mathews % (Auto) Mathews # Eos # Mathews # (Auto) Eos # (Auto) Seg Neutrophils % Seg Neuts % (Manual) Baso # (Auto) Lymphocytes % (Manual) Monocytes % (Manual) Eosinophils % (Manual) Basophils % (Manual) Seg Neutrophils # Seg Neutrophils # Man Lymphocytes # (Manual) Monocytes # (Manual) Eosinophils # (Manual) Nucleated RBC % Basophils # (Manual) APTT Heparin Anti-Xa Level ABG pH POC ABG pO2 ABG pO2 ABG HCO3 ABG O2 Saturation ABG Base Excess POC ABG pCO2 ABG Hemoglobin ABG Oxyhemoglobin Oxyhemoglobin Sodium Potassium Chloride Carbon Dioxide BUN Creatinine Glucose POC Glucose 119 H 132 H 128 H Lactic Acid Calcium Phosphorus Magnesium AST ALT Lactate Dehydrogenase CK-MB (CK-2) C-Reactive Protein NT-Pro-B Natriuret Pep Total Protein Albumin Urine WBC (Auto) 12/15/19 12/16/19 12/16/19 23:11 05:30 05:46 WBC RBC Hgb 8.8 L Hct 27.9 L MCHC RDW MCH Lymph % (Auto) Mathews % (Auto) Mathews # Eos # Mathews # (Auto) Eos # (Auto) Seg Neutrophils % Seg Neuts % (Manual) Baso # (Auto) Lymphocytes % (Manual) Monocytes % (Manual) Eosinophils % (Manual) Basophils % (Manual) Seg Neutrophils # Seg Neutrophils # Man Lymphocytes # (Manual) Monocytes # (Manual) Eosinophils # (Manual) Nucleated RBC % Basophils # (Manual) APTT Heparin Anti-Xa Level ABG pH POC ABG pO2 ABG pO2 ABG HCO3 ABG O2 Saturation ABG Base Excess POC ABG pCO2 ABG Hemoglobin ABG Oxyhemoglobin Oxyhemoglobin Sodium Potassium Chloride Carbon Dioxide BUN Creatinine Glucose POC Glucose 150 H 134 H Lactic Acid Calcium Phosphorus Magnesium AST ALT Lactate Dehydrogenase CK-MB (CK-2) C-Reactive Protein NT-Pro-B Natriuret Pep Total Protein Albumin Urine WBC (Auto) 12/16/19 12/16/19 12/16/19 05:46 05:46 11:44 WBC RBC Hgb Hct MCHC RDW MCH Lymph % (Auto) Mathews % (Auto) Mathews # Eos # Mathews # (Auto) Eos # (Auto) Seg Neutrophils % Seg Neuts % (Manual) Baso # (Auto) Lymphocytes % (Manual) Monocytes % (Manual) Eosinophils % (Manual) Basophils % (Manual) Seg Neutrophils # Seg Neutrophils # Man Lymphocytes # (Manual) Monocytes # (Manual) Eosinophils # (Manual) Nucleated RBC % Basophils # (Manual) APTT Heparin Anti-Xa Level 0.20 L ABG pH POC ABG pO2 ABG pO2 ABG HCO3 ABG O2 Saturation ABG Base Excess POC ABG pCO2 ABG Hemoglobin ABG Oxyhemoglobin Oxyhemoglobin Sodium Potassium Chloride Carbon Dioxide 31 H BUN Creatinine 0.5 L Glucose 147 H POC Glucose 164 H Lactic Acid Calcium Phosphorus Magnesium AST ALT Lactate Dehydrogenase CK-MB (CK-2) C-Reactive Protein NT-Pro-B Natriuret Pep Total Protein Albumin Urine WBC (Auto) 12/16/19 12/16/19 12/17/19 17:17 23:49 05:30 WBC 13.9 H RBC 3.27 L Hgb 9.4 L Hct 29.2 L MCHC RDW 16.0 H MCH Lymph % (Auto) Mathews % (Auto) 8.8 H Mathews # Eos # Mathews # (Auto) 1.2 H Eos # (Auto) 0.5 H Seg Neutrophils % 70.5 H Seg Neuts % (Manual) Baso # (Auto) 0.2 H Lymphocytes % (Manual) Monocytes % (Manual) Eosinophils % (Manual) Basophils % (Manual) Seg Neutrophils # 9.8 H Seg Neutrophils # Man Lymphocytes # (Manual) Monocytes # (Manual) Eosinophils # (Manual) Nucleated RBC % Basophils # (Manual) APTT Heparin Anti-Xa Level ABG pH POC ABG pO2 ABG pO2 ABG HCO3 ABG O2 Saturation ABG Base Excess POC ABG pCO2 ABG Hemoglobin ABG Oxyhemoglobin Oxyhemoglobin Sodium Potassium Chloride Carbon Dioxide BUN Creatinine Glucose POC Glucose 162 H 144 H Lactic Acid Calcium Phosphorus Magnesium AST ALT Lactate Dehydrogenase CK-MB (CK-2) C-Reactive Protein NT-Pro-B Natriuret Pep Total Protein Albumin Urine WBC (Auto) 12/17/19 12/17/19 12/17/19 05:30 06:06 11:50 WBC RBC Hgb Hct MCHC RDW MCH Lymph % (Auto) Mathews % (Auto) Mathews # Eos # Mathews # (Auto) Eos # (Auto) Seg Neutrophils % Seg Neuts % (Manual) Baso # (Auto) Lymphocytes % (Manual) Monocytes % (Manual) Eosinophils % (Manual) Basophils % (Manual) Seg Neutrophils # Seg Neutrophils # Man Lymphocytes # (Manual) Monocytes # (Manual) Eosinophils # (Manual) Nucleated RBC % Basophils # (Manual) APTT Heparin Anti-Xa Level ABG pH POC ABG pO2 ABG pO2 ABG HCO3 ABG O2 Saturation ABG Base Excess POC ABG pCO2 ABG Hemoglobin ABG Oxyhemoglobin Oxyhemoglobin Sodium Potassium Chloride 97.4 L Carbon Dioxide 32 H BUN Creatinine 0.5 L Glucose 135 H POC Glucose 151 H 140 H Lactic Acid Calcium Phosphorus Magnesium AST ALT Lactate Dehydrogenase CK-MB (CK-2) C-Reactive Protein NT-Pro-B Natriuret Pep Total Protein Albumin Urine WBC (Auto) 12/17/19 12/17/19 12/18/19 17:50 23:46 05:17 WBC RBC Hgb 8.8 L Hct 28.0 L MCHC RDW MCH Lymph % (Auto) Mathews % (Auto) Mathews # Eos # Mathews # (Auto) Eos # (Auto) Seg Neutrophils % Seg Neuts % (Manual) Baso # (Auto) Lymphocytes % (Manual) Monocytes % (Manual) Eosinophils % (Manual) Basophils % (Manual) Seg Neutrophils # Seg Neutrophils # Man Lymphocytes # (Manual) Monocytes # (Manual) Eosinophils # (Manual) Nucleated RBC % Basophils # (Manual) APTT Heparin Anti-Xa Level ABG pH POC ABG pO2 ABG pO2 ABG HCO3 ABG O2 Saturation ABG Base Excess POC ABG pCO2 ABG Hemoglobin ABG Oxyhemoglobin Oxyhemoglobin Sodium Potassium Chloride Carbon Dioxide BUN Creatinine Glucose POC Glucose 158 H 150 H Lactic Acid Calcium Phosphorus Magnesium AST ALT Lactate Dehydrogenase CK-MB (CK-2) C-Reactive Protein NT-Pro-B Natriuret Pep Total Protein Albumin Urine WBC (Auto) 12/18/19 12/18/19 12/18/19 05:17 05:49 11:12 WBC RBC Hgb Hct MCHC RDW MCH Lymph % (Auto) Mathews % (Auto) Mathews # Eos # Mathews # (Auto) Eos # (Auto) Seg Neutrophils % Seg Neuts % (Manual) Baso # (Auto) Lymphocytes % (Manual) Monocytes % (Manual) Eosinophils % (Manual) Basophils % (Manual) Seg Neutrophils # Seg Neutrophils # Man Lymphocytes # (Manual) Monocytes # (Manual) Eosinophils # (Manual) Nucleated RBC % Basophils # (Manual) APTT Heparin Anti-Xa Level 0.16 L ABG pH POC ABG pO2 ABG pO2 ABG HCO3 ABG O2 Saturation ABG Base Excess POC ABG pCO2 ABG Hemoglobin ABG Oxyhemoglobin Oxyhemoglobin Sodium Potassium Chloride Carbon Dioxide BUN Creatinine Glucose POC Glucose 127 H 191 H Lactic Acid Calcium Phosphorus Magnesium AST ALT Lactate Dehydrogenase CK-MB (CK-2) C-Reactive Protein NT-Pro-B Natriuret Pep Total Protein Albumin Urine WBC (Auto) 12/18/19 12/18/19 12/19/19 17:03 20:16 00:08 WBC RBC Hgb Hct MCHC RDW MCH Lymph % (Auto) Mathews % (Auto) Mathews # Eos # Mathews # (Auto) Eos # (Auto) Seg Neutrophils % Seg Neuts % (Manual) Baso # (Auto) Lymphocytes % (Manual) Monocytes % (Manual) Eosinophils % (Manual) Basophils % (Manual) Seg Neutrophils # Seg Neutrophils # Man Lymphocytes # (Manual) Monocytes # (Manual) Eosinophils # (Manual) Nucleated RBC % Basophils # (Manual) APTT Heparin Anti-Xa Level ABG pH POC ABG pO2 ABG pO2 ABG HCO3 ABG O2 Saturation ABG Base Excess POC ABG pCO2 ABG Hemoglobin ABG Oxyhemoglobin Oxyhemoglobin Sodium Potassium Chloride Carbon Dioxide BUN Creatinine Glucose POC Glucose 133 H 128 H 129 H Lactic Acid Calcium Phosphorus Magnesium AST ALT Lactate Dehydrogenase CK-MB (CK-2) C-Reactive Protein NT-Pro-B Natriuret Pep Total Protein Albumin Urine WBC (Auto) 12/19/19 12/19/19 12/19/19 04:45 04:45 05:35 WBC RBC Hgb Hct MCHC RDW MCH Lymph % (Auto) Mathews % (Auto) Mathews # Eos # Mathews # (Auto) Eos # (Auto) Seg Neutrophils % Seg Neuts % (Manual) Baso # (Auto) Lymphocytes % (Manual) Monocytes % (Manual) Eosinophils % (Manual) Basophils % (Manual) Seg Neutrophils # Seg Neutrophils # Man Lymphocytes # (Manual) Monocytes # (Manual) Eosinophils # (Manual) Nucleated RBC % Basophils # (Manual) APTT Heparin Anti-Xa Level 0.17 L ABG pH POC ABG pO2 ABG pO2 ABG HCO3 ABG O2 Saturation ABG Base Excess POC ABG pCO2 ABG Hemoglobin ABG Oxyhemoglobin Oxyhemoglobin Sodium Potassium Chloride Carbon Dioxide BUN Creatinine Glucose POC Glucose 120 H Lactic Acid Calcium Phosphorus Magnesium AST ALT Lactate Dehydrogenase 228 H CK-MB (CK-2) C-Reactive Protein NT-Pro-B Natriuret Pep Total Protein Albumin Urine WBC (Auto) 12/19/19 12/19/19 12/19/19 09:20 11:32 11:32 WBC 14.6 H RBC 3.08 L Hgb 9.0 L Hct 26.8 L MCHC RDW 15.9 H MCH Lymph % (Auto) Mathews % (Auto) Mathews # Eos # Mathews # (Auto) Eos # (Auto) Seg Neutrophils % Seg Neuts % (Manual) 82.0 H Baso # (Auto) Lymphocytes % (Manual) 10.0 L Monocytes % (Manual) Eosinophils % (Manual) Basophils % (Manual) Seg Neutrophils # Seg Neutrophils # Man 12.0 H Lymphocytes # (Manual) Monocytes # (Manual) 0.9 H Eosinophils # (Manual) Nucleated RBC % 1.0 H Basophils # (Manual) APTT Heparin Anti-Xa Level ABG pH 7.451 H POC ABG pO2 ABG pO2 62.6 L ABG HCO3 33.2 H ABG O2 Saturation 93.8 L ABG Base Excess 8.3 H POC ABG pCO2 ABG Hemoglobin 8.3 L ABG Oxyhemoglobin Oxyhemoglobin 91.9 L Sodium Potassium Chloride 95.0 L Carbon Dioxide 33 H BUN 22 H Creatinine 0.6 L Glucose 150 H POC Glucose Lactic Acid Calcium Phosphorus Magnesium AST ALT Lactate Dehydrogenase CK-MB (CK-2) C-Reactive Protein NT-Pro-B Natriuret Pep Total Protein 6.2 L Albumin 2.4 L Urine WBC (Auto) 12/19/19 12/19/19 12/20/19 11:56 18:17 00:09 WBC RBC Hgb Hct MCHC RDW MCH Lymph % (Auto) Mathews % (Auto) Mathews # Eos # Mathews # (Auto) Eos # (Auto) Seg Neutrophils % Seg Neuts % (Manual) Baso # (Auto) Lymphocytes % (Manual) Monocytes % (Manual) Eosinophils % (Manual) Basophils % (Manual) Seg Neutrophils # Seg Neutrophils # Man Lymphocytes # (Manual) Monocytes # (Manual) Eosinophils # (Manual) Nucleated RBC % Basophils # (Manual) APTT Heparin Anti-Xa Level ABG pH POC ABG pO2 ABG pO2 ABG HCO3 ABG O2 Saturation ABG Base Excess POC ABG pCO2 ABG Hemoglobin ABG Oxyhemoglobin Oxyhemoglobin Sodium Potassium Chloride Carbon Dioxide BUN Creatinine Glucose POC Glucose 156 H 156 H 155 H Lactic Acid Calcium Phosphorus Magnesium AST ALT Lactate Dehydrogenase CK-MB (CK-2) C-Reactive Protein NT-Pro-B Natriuret Pep Total Protein Albumin Urine WBC (Auto) 12/20/19 12/20/19 12/20/19 05:26 06:02 18:17 WBC RBC Hgb Hct MCHC RDW MCH Lymph % (Auto) Mathews % (Auto) Mathews # Eos # Mathews # (Auto) Eos # (Auto) Seg Neutrophils % Seg Neuts % (Manual) Baso # (Auto) Lymphocytes % (Manual) Monocytes % (Manual) Eosinophils % (Manual) Basophils % (Manual) Seg Neutrophils # Seg Neutrophils # Man Lymphocytes # (Manual) Monocytes # (Manual) Eosinophils # (Manual) Nucleated RBC % Basophils # (Manual) APTT Heparin Anti-Xa Level 0.19 L ABG pH POC ABG pO2 ABG pO2 ABG HCO3 ABG O2 Saturation ABG Base Excess POC ABG pCO2 ABG Hemoglobin ABG Oxyhemoglobin Oxyhemoglobin Sodium Potassium Chloride Carbon Dioxide BUN Creatinine Glucose POC Glucose 137 H 128 H Lactic Acid Calcium Phosphorus Magnesium AST ALT Lactate Dehydrogenase CK-MB (CK-2) C-Reactive Protein NT-Pro-B Natriuret Pep Total Protein Albumin Urine WBC (Auto) 12/20/19 12/21/19 12/21/19 23:34 05:31 05:31 WBC 12.7 H RBC 3.09 L Hgb 8.9 L Hct 27.4 L MCHC RDW 15.8 H MCH Lymph % (Auto) 12.1 L Mathews % (Auto) 7.8 H Mathews # Eos # Mathews # (Auto) 1.0 H Eos # (Auto) Seg Neutrophils % 77.1 H Seg Neuts % (Manual) Baso # (Auto) Lymphocytes % (Manual) Monocytes % (Manual) Eosinophils % (Manual) Basophils % (Manual) Seg Neutrophils # 9.8 H Seg Neutrophils # Man Lymphocytes # (Manual) Monocytes # (Manual) Eosinophils # (Manual) Nucleated RBC % Basophils # (Manual) APTT Heparin Anti-Xa Level ABG pH POC ABG pO2 ABG pO2 ABG HCO3 ABG O2 Saturation ABG Base Excess POC ABG pCO2 ABG Hemoglobin ABG Oxyhemoglobin Oxyhemoglobin Sodium Potassium Chloride 96.9 L Carbon Dioxide 37 H BUN 27 H Creatinine 0.7 L Glucose 140 H POC Glucose 145 H Lactic Acid Calcium Phosphorus Magnesium AST ALT Lactate Dehydrogenase CK-MB (CK-2) C-Reactive Protein NT-Pro-B Natriuret Pep Total Protein Albumin Urine WBC (Auto) 12/21/19 12/21/19 12/21/19 05:38 10:13 11:51 WBC RBC Hgb Hct MCHC RDW MCH Lymph % (Auto) Mathews % (Auto) Mathews # Eos # Mathews # (Auto) Eos # (Auto) Seg Neutrophils % Seg Neuts % (Manual) Baso # (Auto) Lymphocytes % (Manual) Monocytes % (Manual) Eosinophils % (Manual) Basophils % (Manual) Seg Neutrophils # Seg Neutrophils # Man Lymphocytes # (Manual) Monocytes # (Manual) Eosinophils # (Manual) Nucleated RBC % Basophils # (Manual) APTT 23.9 L Heparin Anti-Xa Level < 0.10 L ABG pH POC ABG pO2 ABG pO2 ABG HCO3 ABG O2 Saturation ABG Base Excess POC ABG pCO2 ABG Hemoglobin ABG Oxyhemoglobin Oxyhemoglobin Sodium Potassium Chloride Carbon Dioxide BUN Creatinine Glucose POC Glucose 151 H 145 H Lactic Acid Calcium Phosphorus Magnesium AST ALT Lactate Dehydrogenase CK-MB (CK-2) C-Reactive Protein NT-Pro-B Natriuret Pep Total Protein Albumin Urine WBC (Auto) 12/21/19 12/22/19 12/22/19 17:16 00:01 01:33 WBC RBC Hgb Hct MCHC RDW MCH Lymph % (Auto) Mathews % (Auto) Mathews # Eos # Mathews # (Auto) Eos # (Auto) Seg Neutrophils % Seg Neuts % (Manual) Baso # (Auto) Lymphocytes % (Manual) Monocytes % (Manual) Eosinophils % (Manual) Basophils % (Manual) Seg Neutrophils # Seg Neutrophils # Man Lymphocytes # (Manual) Monocytes # (Manual) Eosinophils # (Manual) Nucleated RBC % Basophils # (Manual) APTT Heparin Anti-Xa Level 0.10 L ABG pH POC ABG pO2 ABG pO2 ABG HCO3 ABG O2 Saturation ABG Base Excess POC ABG pCO2 ABG Hemoglobin ABG Oxyhemoglobin Oxyhemoglobin Sodium Potassium Chloride Carbon Dioxide BUN Creatinine Glucose POC Glucose 167 H 179 H Lactic Acid Calcium Phosphorus Magnesium AST ALT Lactate Dehydrogenase CK-MB (CK-2) C-Reactive Protein NT-Pro-B Natriuret Pep Total Protein Albumin Urine WBC (Auto) 12/22/19 12/22/19 12/22/19 03:22 05:10 05:10 WBC 13.8 H RBC 3.20 L Hgb 8.9 L Hct 28.1 L MCHC RDW 15.9 H MCH Lymph % (Auto) Mathews % (Auto) Mathews # Eos # Mathews # (Auto) Eos # (Auto) Seg Neutrophils % Seg Neuts % (Manual) Baso # (Auto) Lymphocytes % (Manual) Monocytes % (Manual) Eosinophils % (Manual) Basophils % (Manual) Seg Neutrophils # Seg Neutrophils # Man Lymphocytes # (Manual) Monocytes # (Manual) Eosinophils # (Manual) Nucleated RBC % Basophils # (Manual) APTT Heparin Anti-Xa Level ABG pH POC ABG pO2 52.3 L ABG pO2 ABG HCO3 ABG O2 Saturation ABG Base Excess POC ABG pCO2 52.9 H ABG Hemoglobin 10.7 L ABG Oxyhemoglobin 84 L Oxyhemoglobin Sodium Potassium Chloride 96.6 L Carbon Dioxide BUN 25 H Creatinine 0.7 L Glucose 129 H POC Glucose Lactic Acid Calcium Phosphorus Magnesium AST ALT Lactate Dehydrogenase CK-MB (CK-2) C-Reactive Protein NT-Pro-B Natriuret Pep Total Protein Albumin Urine WBC (Auto) 12/22/19 12/22/19 12/22/19 05:18 12:32 12:43 WBC RBC Hgb Hct MCHC RDW MCH Lymph % (Auto) Mathews % (Auto) Mathews # Eos # Mathews # (Auto) Eos # (Auto) Seg Neutrophils % Seg Neuts % (Manual) Baso # (Auto) Lymphocytes % (Manual) Monocytes % (Manual) Eosinophils % (Manual) Basophils % (Manual) Seg Neutrophils # Seg Neutrophils # Man Lymphocytes # (Manual) Monocytes # (Manual) Eosinophils # (Manual) Nucleated RBC % Basophils # (Manual) APTT Heparin Anti-Xa Level 0.18 L ABG pH POC ABG pO2 ABG pO2 ABG HCO3 ABG O2 Saturation ABG Base Excess POC ABG pCO2 ABG Hemoglobin ABG Oxyhemoglobin Oxyhemoglobin Sodium Potassium Chloride Carbon Dioxide BUN Creatinine Glucose POC Glucose 131 H 208 H Lactic Acid Calcium Phosphorus Magnesium AST ALT Lactate Dehydrogenase CK-MB (CK-2) C-Reactive Protein NT-Pro-B Natriuret Pep Total Protein Albumin Urine WBC (Auto) 12/22/19 12/22/19 12/23/19 17:44 23:20 03:51 WBC 15.2 H RBC 3.43 L Hgb 9.6 L Hct 30.3 L MCHC RDW 15.9 H MCH Lymph % (Auto) Mathews % (Auto) Mathews # Eos # Mathews # (Auto) Eos # (Auto) Seg Neutrophils % Seg Neuts % (Manual) Baso # (Auto) Lymphocytes % (Manual) Monocytes % (Manual) Eosinophils % (Manual) Basophils % (Manual) Seg Neutrophils # Seg Neutrophils # Man Lymphocytes # (Manual) Monocytes # (Manual) Eosinophils # (Manual) Nucleated RBC % Basophils # (Manual) APTT Heparin Anti-Xa Level ABG pH POC ABG pO2 ABG pO2 ABG HCO3 ABG O2 Saturation ABG Base Excess POC ABG pCO2 ABG Hemoglobin ABG Oxyhemoglobin Oxyhemoglobin Sodium Potassium Chloride Carbon Dioxide BUN Creatinine Glucose POC Glucose 209 H 119 H Lactic Acid Calcium Phosphorus Magnesium AST ALT Lactate Dehydrogenase CK-MB (CK-2) C-Reactive Protein NT-Pro-B Natriuret Pep Total Protein Albumin Urine WBC (Auto) 12/23/19 12/23/19 12/23/19 03:51 05:31 12:09 WBC RBC Hgb Hct MCHC RDW MCH Lymph % (Auto) Mathews % (Auto) Mathews # Eos # Mathews # (Auto) Eos # (Auto) Seg Neutrophils % Seg Neuts % (Manual) Baso # (Auto) Lymphocytes % (Manual) Monocytes % (Manual) Eosinophils % (Manual) Basophils % (Manual) Seg Neutrophils # Seg Neutrophils # Man Lymphocytes # (Manual) Monocytes # (Manual) Eosinophils # (Manual) Nucleated RBC % Basophils # (Manual) APTT Heparin Anti-Xa Level ABG pH POC ABG pO2 ABG pO2 ABG HCO3 ABG O2 Saturation ABG Base Excess POC ABG pCO2 ABG Hemoglobin ABG Oxyhemoglobin Oxyhemoglobin Sodium Potassium Chloride 97.2 L Carbon Dioxide 31 H BUN 23 H Creatinine 0.6 L Glucose 153 H POC Glucose 149 H 144 H Lactic Acid Calcium Phosphorus Magnesium AST ALT Lactate Dehydrogenase CK-MB (CK-2) C-Reactive Protein NT-Pro-B Natriuret Pep Total Protein Albumin Urine WBC (Auto) 12/23/19 12/23/1920 15:30 17:49 23:31 WBC RBC Hgb Hct MCHC RDW MCH Lymph % (Auto) Mathews % (Auto) Mathews # Eos # Mathews # (Auto) Eos # (Auto) Seg Neutrophils % Seg Neuts % (Manual) Baso # (Auto) Lymphocytes % (Manual) Monocytes % (Manual) Eosinophils % (Manual) Basophils % (Manual) Seg Neutrophils # Seg Neutrophils # Man Lymphocytes # (Manual) Monocytes # (Manual) Eosinophils # (Manual) Nucleated RBC % Basophils # (Manual) APTT Heparin Anti-Xa Level 0.21 L ABG pH POC ABG pO2 ABG pO2 ABG HCO3 ABG O2 Saturation ABG Base Excess POC ABG pCO2 ABG Hemoglobin ABG Oxyhemoglobin Oxyhemoglobin Sodium Potassium Chloride Carbon Dioxide BUN Creatinine Glucose POC Glucose 192 H 151 H Lactic Acid Calcium Phosphorus Magnesium AST ALT Lactate Dehydrogenase CK-MB (CK-2) C-Reactive Protein NT-Pro-B Natriuret Pep Total Protein Albumin Urine WBC (Auto) 12/24/19 12/24/19 12/24/19 05:34 12:13 16:50 WBC RBC Hgb Hct MCHC RDW MCH Lymph % (Auto) Mathews % (Auto) Mathews # Eos # Mathews # (Auto) Eos # (Auto) Seg Neutrophils % Seg Neuts % (Manual) Baso # (Auto) Lymphocytes % (Manual) Monocytes % (Manual) Eosinophils % (Manual) Basophils % (Manual) Seg Neutrophils # Seg Neutrophils # Man Lymphocytes # (Manual) Monocytes # (Manual) Eosinophils # (Manual) Nucleated RBC % Basophils # (Manual) APTT Heparin Anti-Xa Level 0.16 L ABG pH POC ABG pO2 ABG pO2 ABG HCO3 ABG O2 Saturation ABG Base Excess POC ABG pCO2 ABG Hemoglobin ABG Oxyhemoglobin Oxyhemoglobin Sodium Potassium Chloride Carbon Dioxide BUN Creatinine Glucose POC Glucose 145 H 124 H Lactic Acid Calcium Phosphorus Magnesium AST ALT Lactate Dehydrogenase CK-MB (CK-2) C-Reactive Protein NT-Pro-B Natriuret Pep Total Protein Albumin Urine WBC (Auto) 12/24/19 12/25/19 12/25/19 17:53 00:14 04:18 WBC 12.9 H RBC 3.30 L Hgb 9.1 L Hct 28.8 L MCHC RDW 16.4 H MCH Lymph % (Auto) Mathews % (Auto) 7.8 H Mathews # Eos # Mathews # (Auto) 1.0 H Eos # (Auto) Seg Neutrophils % 75.5 H Seg Neuts % (Manual) Baso # (Auto) Lymphocytes % (Manual) Monocytes % (Manual) Eosinophils % (Manual) Basophils % (Manual) Seg Neutrophils # 9.7 H Seg Neutrophils # Man Lymphocytes # (Manual) Monocytes # (Manual) Eosinophils # (Manual) Nucleated RBC % Basophils # (Manual) APTT Heparin Anti-Xa Level ABG pH POC ABG pO2 ABG pO2 ABG HCO3 ABG O2 Saturation ABG Base Excess POC ABG pCO2 ABG Hemoglobin ABG Oxyhemoglobin Oxyhemoglobin Sodium Potassium Chloride Carbon Dioxide BUN Creatinine Glucose POC Glucose 164 H 148 H Lactic Acid Calcium Phosphorus Magnesium AST ALT Lactate Dehydrogenase CK-MB (CK-2) C-Reactive Protein NT-Pro-B Natriuret Pep Total Protein Albumin Urine WBC (Auto) 12/25/19 12/25/19 12/25/19 04:18 05:38 11:44 WBC RBC Hgb Hct MCHC RDW MCH Lymph % (Auto) Mathews % (Auto) Mathews # Eos # Mathews # (Auto) Eos # (Auto) Seg Neutrophils % Seg Neuts % (Manual) Baso # (Auto) Lymphocytes % (Manual) Monocytes % (Manual) Eosinophils % (Manual) Basophils % (Manual) Seg Neutrophils # Seg Neutrophils # Man Lymphocytes # (Manual) Monocytes # (Manual) Eosinophils # (Manual) Nucleated RBC % Basophils # (Manual) APTT Heparin Anti-Xa Level ABG pH POC ABG pO2 ABG pO2 ABG HCO3 ABG O2 Saturation ABG Base Excess POC ABG pCO2 ABG Hemoglobin ABG Oxyhemoglobin Oxyhemoglobin Sodium Potassium Chloride Carbon Dioxide 33 H BUN 27 H Creatinine 0.6 L Glucose 132 H POC Glucose 152 H 166 H Lactic Acid Calcium Phosphorus Magnesium AST ALT Lactate Dehydrogenase CK-MB (CK-2) C-Reactive Protein NT-Pro-B Natriuret Pep Total Protein Albumin Urine WBC (Auto) 12/25/19 12/26/19 12/26/19 18:29 00:17 00:18 WBC RBC Hgb Hct MCHC RDW MCH Lymph % (Auto) Mathews % (Auto) Mathews # Eos # Mathews # (Auto) Eos # (Auto) Seg Neutrophils % Seg Neuts % (Manual) Baso # (Auto) Lymphocytes % (Manual) Monocytes % (Manual) Eosinophils % (Manual) Basophils % (Manual) Seg Neutrophils # Seg Neutrophils # Man Lymphocytes # (Manual) Monocytes # (Manual) Eosinophils # (Manual) Nucleated RBC % Basophils # (Manual) APTT Heparin Anti-Xa Level ABG pH POC ABG pO2 ABG pO2 ABG HCO3 ABG O2 Saturation ABG Base Excess POC ABG pCO2 ABG Hemoglobin ABG Oxyhemoglobin Oxyhemoglobin Sodium Potassium Chloride 97.8 L Carbon Dioxide BUN 25 H Creatinine 0.6 L Glucose 140 H POC Glucose 194 H 151 H Lactic Acid Calcium Phosphorus Magnesium AST ALT Lactate Dehydrogenase CK-MB (CK-2) C-Reactive Protein NT-Pro-B Natriuret Pep Total Protein Albumin Urine WBC (Auto) 12/26/19 12/26/19 12/26/19 05:36 11:41 17:50 WBC RBC Hgb Hct MCHC RDW MCH Lymph % (Auto) Mathews % (Auto) Mathews # Eos # Mathews # (Auto) Eos # (Auto) Seg Neutrophils % Seg Neuts % (Manual) Baso # (Auto) Lymphocytes % (Manual) Monocytes % (Manual) Eosinophils % (Manual) Basophils % (Manual) Seg Neutrophils # Seg Neutrophils # Man Lymphocytes # (Manual) Monocytes # (Manual) Eosinophils # (Manual) Nucleated RBC % Basophils # (Manual) APTT Heparin Anti-Xa Level ABG pH POC ABG pO2 ABG pO2 ABG HCO3 ABG O2 Saturation ABG Base Excess POC ABG pCO2 ABG Hemoglobin ABG Oxyhemoglobin Oxyhemoglobin Sodium Potassium Chloride Carbon Dioxide BUN Creatinine Glucose POC Glucose 156 H 148 H 139 H Lactic Acid Calcium Phosphorus Magnesium AST ALT Lactate Dehydrogenase CK-MB (CK-2) C-Reactive Protein NT-Pro-B Natriuret Pep Total Protein Albumin Urine WBC (Auto) 12/26/19 12/27/19 12/27/19 23:19 05:34 12:02 WBC RBC Hgb Hct MCHC RDW MCH Lymph % (Auto) Mathews % (Auto) Mathews # Eos # Mathews # (Auto) Eos # (Auto) Seg Neutrophils % Seg Neuts % (Manual) Baso # (Auto) Lymphocytes % (Manual) Monocytes % (Manual) Eosinophils % (Manual) Basophils % (Manual) Seg Neutrophils # Seg Neutrophils # Man Lymphocytes # (Manual) Monocytes # (Manual) Eosinophils # (Manual) Nucleated RBC % Basophils # (Manual) APTT Heparin Anti-Xa Level ABG pH POC ABG pO2 ABG pO2 ABG HCO3 ABG O2 Saturation ABG Base Excess POC ABG pCO2 ABG Hemoglobin ABG Oxyhemoglobin Oxyhemoglobin Sodium Potassium Chloride Carbon Dioxide BUN Creatinine Glucose POC Glucose 161 H 145 H 157 H Lactic Acid Calcium Phosphorus Magnesium AST ALT Lactate Dehydrogenase CK-MB (CK-2) C-Reactive Protein NT-Pro-B Natriuret Pep Total Protein Albumin Urine WBC (Auto) 12/27/19 12/27/19 12/27/19 17:35 20:11 23:00 WBC RBC Hgb Hct MCHC RDW MCH Lymph % (Auto) Mathews % (Auto) Mathews # Eos # Mathews # (Auto) Eos # (Auto) Seg Neutrophils % Seg Neuts % (Manual) Baso # (Auto) Lymphocytes % (Manual) Monocytes % (Manual) Eosinophils % (Manual) Basophils % (Manual) Seg Neutrophils # Seg Neutrophils # Man Lymphocytes # (Manual) Monocytes # (Manual) Eosinophils # (Manual) Nucleated RBC % Basophils # (Manual) APTT Heparin Anti-Xa Level 0.19 L ABG pH POC ABG pO2 ABG pO2 ABG HCO3 ABG O2 Saturation ABG Base Excess POC ABG pCO2 ABG Hemoglobin ABG Oxyhemoglobin Oxyhemoglobin Sodium Potassium Chloride Carbon Dioxide BUN Creatinine Glucose POC Glucose 158 H 155 H Lactic Acid Calcium Phosphorus Magnesium AST ALT Lactate Dehydrogenase CK-MB (CK-2) C-Reactive Protein NT-Pro-B Natriuret Pep Total Protein Albumin Urine WBC (Auto) 12/27/19 12/28/19 12/28/19 23:45 02:41 02:41 WBC 13.0 H RBC 3.48 L Hgb 9.5 L Hct 30.6 L MCHC 31 L RDW 16.6 H MCH 27 L Lymph % (Auto) 13.0 L Mathews % (Auto) 8.0 H Mathews # Eos # Mathews # (Auto) 1.0 H Eos # (Auto) Seg Neutrophils % 76.3 H Seg Neuts % (Manual) Baso # (Auto) Lymphocytes % (Manual) Monocytes % (Manual) Eosinophils % (Manual) Basophils % (Manual) Seg Neutrophils # 9.9 H Seg Neutrophils # Man Lymphocytes # (Manual) Monocytes # (Manual) Eosinophils # (Manual) Nucleated RBC % Basophils # (Manual) APTT Heparin Anti-Xa Level ABG pH POC ABG pO2 ABG pO2 ABG HCO3 ABG O2 Saturation ABG Base Excess POC ABG pCO2 ABG Hemoglobin ABG Oxyhemoglobin Oxyhemoglobin Sodium Potassium Chloride Carbon Dioxide BUN 22 H Creatinine 0.6 L Glucose 101 H POC Glucose 130 H Lactic Acid Calcium Phosphorus Magnesium AST ALT Lactate Dehydrogenase CK-MB (CK-2) C-Reactive Protein NT-Pro-B Natriuret Pep Total Protein Albumin Urine WBC (Auto) 12/28/19 12/28/19 12/28/19 06:00 12:34 18:13 WBC RBC Hgb Hct MCHC RDW MCH Lymph % (Auto) Mathews % (Auto) Mathews # Eos # Mathews # (Auto) Eos # (Auto) Seg Neutrophils % Seg Neuts % (Manual) Baso # (Auto) Lymphocytes % (Manual) Monocytes % (Manual) Eosinophils % (Manual) Basophils % (Manual) Seg Neutrophils # Seg Neutrophils # Man Lymphocytes # (Manual) Monocytes # (Manual) Eosinophils # (Manual) Nucleated RBC % Basophils # (Manual) APTT Heparin Anti-Xa Level ABG pH POC ABG pO2 ABG pO2 ABG HCO3 ABG O2 Saturation ABG Base Excess POC ABG pCO2 ABG Hemoglobin ABG Oxyhemoglobin Oxyhemoglobin Sodium Potassium Chloride Carbon Dioxide BUN Creatinine Glucose POC Glucose 150 H 161 H 128 H Lactic Acid Calcium Phosphorus Magnesium AST ALT Lactate Dehydrogenase CK-MB (CK-2) C-Reactive Protein NT-Pro-B Natriuret Pep Total Protein Albumin Urine WBC (Auto) 12/28/19 12/29/19 12/29/19 23:36 05:21 11:40 WBC RBC Hgb Hct MCHC RDW MCH Lymph % (Auto) Mathews % (Auto) Mathews # Eos # Mathews # (Auto) Eos # (Auto) Seg Neutrophils % Seg Neuts % (Manual) Baso # (Auto) Lymphocytes % (Manual) Monocytes % (Manual) Eosinophils % (Manual) Basophils % (Manual) Seg Neutrophils # Seg Neutrophils # Man Lymphocytes # (Manual) Monocytes # (Manual) Eosinophils # (Manual) Nucleated RBC % Basophils # (Manual) APTT Heparin Anti-Xa Level ABG pH POC ABG pO2 ABG pO2 ABG HCO3 ABG O2 Saturation ABG Base Excess POC ABG pCO2 ABG Hemoglobin ABG Oxyhemoglobin Oxyhemoglobin Sodium Potassium Chloride Carbon Dioxide BUN Creatinine Glucose POC Glucose 137 H 136 H 166 H Lactic Acid Calcium Phosphorus Magnesium AST ALT Lactate Dehydrogenase CK-MB (CK-2) C-Reactive Protein NT-Pro-B Natriuret Pep Total Protein Albumin Urine WBC (Auto) 12/29/19 12/29/19 12/29/19 17:23 19:21 23:38 WBC RBC Hgb Hct MCHC RDW MCH Lymph % (Auto) Mathews % (Auto) Mathews # Eos # Mathews # (Auto) Eos # (Auto) Seg Neutrophils % Seg Neuts % (Manual) Baso # (Auto) Lymphocytes % (Manual) Monocytes % (Manual) Eosinophils % (Manual) Basophils % (Manual) Seg Neutrophils # Seg Neutrophils # Man Lymphocytes # (Manual) Monocytes # (Manual) Eosinophils # (Manual) Nucleated RBC % Basophils # (Manual) APTT Heparin Anti-Xa Level 0.20 L ABG pH POC ABG pO2 ABG pO2 ABG HCO3 ABG O2 Saturation ABG Base Excess POC ABG pCO2 ABG Hemoglobin ABG Oxyhemoglobin Oxyhemoglobin Sodium Potassium Chloride Carbon Dioxide BUN Creatinine Glucose POC Glucose 144 H 141 H Lactic Acid Calcium Phosphorus Magnesium AST ALT Lactate Dehydrogenase CK-MB (CK-2) C-Reactive Protein NT-Pro-B Natriuret Pep Total Protein Albumin Urine WBC (Auto) 12/30/19 12/30/19 12/30/19 03:58 03:58 04:59 WBC RBC 3.54 L Hgb 9.8 L Hct 30.7 L MCHC RDW 16.8 H MCH Lymph % (Auto) Mathews % (Auto) Mathews # Eos # Mathews # (Auto) Eos # (Auto) Seg Neutrophils % Seg Neuts % (Manual) Baso # (Auto) Lymphocytes % (Manual) Monocytes % (Manual) Eosinophils % (Manual) Basophils % (Manual) Seg Neutrophils # Seg Neutrophils # Man Lymphocytes # (Manual) Monocytes # (Manual) Eosinophils # (Manual) Nucleated RBC % Basophils # (Manual) APTT Heparin Anti-Xa Level ABG pH POC ABG pO2 ABG pO2 ABG HCO3 29.8 H ABG O2 Saturation ABG Base Excess 4.8 H POC ABG pCO2 ABG Hemoglobin 11.2 L ABG Oxyhemoglobin Oxyhemoglobin 93.8 L Sodium Potassium Chloride 97.8 L Carbon Dioxide BUN 26 H Creatinine Glucose 168 H POC Glucose Lactic Acid Calcium Phosphorus Magnesium AST ALT Lactate Dehydrogenase CK-MB (CK-2) C-Reactive Protein NT-Pro-B Natriuret Pep Total Protein Albumin Urine WBC (Auto) 12/30/19 12/30/19 12/30/19 05:45 11:34 17:28 WBC RBC Hgb Hct MCHC RDW MCH Lymph % (Auto) Mathews % (Auto) Mathews # Eos # Mathews # (Auto) Eos # (Auto) Seg Neutrophils % Seg Neuts % (Manual) Baso # (Auto) Lymphocytes % (Manual) Monocytes % (Manual) Eosinophils % (Manual) Basophils % (Manual) Seg Neutrophils # Seg Neutrophils # Man Lymphocytes # (Manual) Monocytes # (Manual) Eosinophils # (Manual) Nucleated RBC % Basophils # (Manual) APTT Heparin Anti-Xa Level ABG pH POC ABG pO2 ABG pO2 ABG HCO3 ABG O2 Saturation ABG Base Excess POC ABG pCO2 ABG Hemoglobin ABG Oxyhemoglobin Oxyhemoglobin Sodium Potassium Chloride Carbon Dioxide BUN Creatinine Glucose POC Glucose 163 H 180 H 150 H Lactic Acid Calcium Phosphorus Magnesium AST ALT Lactate Dehydrogenase CK-MB (CK-2) C-Reactive Protein NT-Pro-B Natriuret Pep Total Protein Albumin Urine WBC (Auto) 12/30/19 12/31/19 12/31/19 23:43 04:55 05:07 WBC RBC Hgb Hct MCHC RDW MCH Lymph % (Auto) Mathews % (Auto) Mathews # Eos # Mathews # (Auto) Eos # (Auto) Seg Neutrophils % Seg Neuts % (Manual) Baso # (Auto) Lymphocytes % (Manual) Monocytes % (Manual) Eosinophils % (Manual) Basophils % (Manual) Seg Neutrophils # Seg Neutrophils # Man Lymphocytes # (Manual) Monocytes # (Manual) Eosinophils # (Manual) Nucleated RBC % Basophils # (Manual) APTT Heparin Anti-Xa Level ABG pH POC ABG pO2 ABG pO2 ABG HCO3 ABG O2 Saturation ABG Base Excess POC ABG pCO2 ABG Hemoglobin ABG Oxyhemoglobin Oxyhemoglobin Sodium Potassium 5.6 H D Chloride Carbon Dioxide BUN 33 H Creatinine Glucose 131 H POC Glucose 142 H 134 H Lactic Acid Calcium Phosphorus Magnesium AST ALT Lactate Dehydrogenase CK-MB (CK-2) C-Reactive Protein NT-Pro-B Natriuret Pep Total Protein Albumin Urine WBC (Auto) Chest x-ray: image reviewed (RLL open; persistent bibasilar predominant infiltrates) Allied health notes reviewed: nursing
[2019-12-31] MEDS: ACETAMINOPHEN 325 MG/10.15 ML ORAL LIQD UNIT DOSE FEEDTUBE PRN (12:43)
--- NOTE | 2019-12-31 18:04 | Progress Note ---
Assessment and Plan Assessment and plan: -Acute LLL PE -Acute RLE DVT -Persistent fevers; secondary to sepsis and acute PE/DVT -Severe sepsis; secondary to bilateral pneumonia, persistent fevers -Acute hypoxemic respiratory failure, on vent unable to wean -Bilateral pneumonia, community acquired, -Aspiration Pneumonia -Sustained SVT, on amiodarone -Acute on chronic systolic congestive heart failure -History of cerebrovascular accident. -Tobacco use disorder -Alcohol abuse with DT -Acute chronic obstructive pulmonary disease exacerbation. -Hypertension and hypertensive urgency at presentation. -History of arthritis. -Paroxysmal atrial fibrillation -Leukocytosis with possible sepsis. -Lactic acidosis. -Bleeding from ET tube -Oropharyngeal dysphagia -S/P Knee surgery -History of peptic Ulcer Surgery -DVT prophylaxis COVID-19 test; 11/24/2019; negative 11/26/2019; negative Plan Continue ventilatory support Wean as tolerated as per critical care Completed abx, ID following Aspiration precautions Continue amiodarone and metoprolol for suppression of paroxysmal atrial fibrillation. Anticoagulation currently with intravenous heparin. thoracentesis cancelled as not much fluid to drawn Will need trach and PEG DVT/GI prophy Heparin/Protonix Plan of care reviewed with the patient's nurse Closely monitor the patient and adjust management as needed The high probability of a clinically significant, sudden or life threatening deterioration of the [Respiratory, cardiovascular & neurological] system(s) required my full and direct attention, intervention and personal management. The aggregate critical care time was [33] minutes without overlap. Time includes spent on [x] Data Review and interpretation [x] Patient assessment and monitoring of vital signs [x] Documentation [x] Medication orders and management Brief History Patient is a 64-year-old male with known history of hypertension, COPD, history of coronary artery disease, CHF with ejection fraction of 20 to 25% in August 2018 presenting to the emergency room via EMS complaining of shortness of breath. Patient was found to be hypoxic and in respiratory distress. Patient was placed on CPAP in route to the hospital. Oxygen saturation was said to be 88%. Started on Solu-Medrol, Lasix and magnesium in ED, patient was also found to be lethargic with an oxygen saturation of about 91% on CPAP. He was subsequently intubated. Work-up in the emergency room including chest x-ray reveals bilateral pneumonia. He had an elevated white count of 14 and also had an elevated BNP. Patient admitted to the ICU and placed on empiric IV antibiotics for pneumonia. He tested negative for COVID-19 and placed on isolation precautions. Remains intubated on ventilatory support, sputum cultures positive for Pseudomonas, ID treated with cefepime and Vanco. His hospital course became complicated with acute PE, DVT, paroxysmal atrial fib - placed on heparin drip. Patient difficult to wean off, remains intubated. 11/25: Leukocytosis improving. Continue current management anticipate extubation possible today. 11/26. Still intubated. Failed SBT yesterday. Repeat COVID-19 test is negative. 11/27. CT head ordered for possible neuro status change is negative. More responsive as the day progressed as per RN. Chest xray today shows interval improvement. He is still on antibiotics - will complete regimen today. 11/28: Considering difficult extubation and severe cardiomyopathy, will obtain c ardiology consult. Aspiration precautions, tube feeds held, continue antibiotics. 11/29: Still with intermittent fever but improving imaging, continue diuresis. 11/30; Extremely agitated when placed on PSV- SVT, hypertension. Patiet acknowledged that he drinks. IV Ativan given, CIWA protocol initiated. 12 lead ordered showed SVT, one dose of amiodarone ordered. continue to follow up cardiology recommendation 12/01: Patient remains on mechanical ventilation, getting SBT trial. Remains in SVT, started on amiodarone drip by cardiology. 12/02; patient is on mechanical ventilation and on spontaneous breathing trial. Cardiology started the patient on PO amiodarone. Patient is on cefepime. 12/03: patient is on mechanical ventilation. Cardiology started the patient on PO amiodarone for SVT. Patient is on cefepime, no fever overnight. 12/04: Patient is sedated and on mechanical ventilation. Patient had fever yesterday afternoon 102.3, ID changed his cefepime to meropenem. Heart rate is controlled, cardiology is following. Patient has paroxysmal atrial fibrillation and on amiodarone and metoprolol, subcu heparin for anticoagulation and will need oral anticoagulation once stable. 12/05: Sputum cultures positive for Pseudomonas, ID following 12/06; patient is febrile T-max 24 hours 102 F ,ID change antibiotics to cefepime and Vancomycin 12/07: resumed care. Na 149 today, start on 03/26 NS. cont current care 12/08: remains in a stable sinus rhythm and stable blood pressure, continue supportive care. wean off vent as tolerated. persistent fever - ordered CTA chest 12/09: noted bloody discharges from ET tube last night. CTA and LE venous doppler positive for acute PE and DVT. resume heparin drip, consult vascular for possible EKOS/ IVC filter. monitor h/h. cont SBT trial, wean off vent as tolerated. called but no answer 12/10: cont heparin drip for acute PE and DVT, follow vascular recommendation. monitor h/h, wean off vent as tolerated 12/11: o/n had bleeding from ET tube, cont to monitor h/h. vascular recommending medical Mx. called ; Nicolle Araiza [phone]. 12/12: H&H remained stable, patient on heparin drip. Discussed with yesterday. Discussed with critical care attending. Patient not tolerating SBT trial. Continue to wean off from vent as tolerated, follow clinically. Tolerating tube feeding 12/13: Continue heparin drip, wean off from vent as tolerated. Discussed with pulmonary attending if no improvement by the end of 3 weeks of intubation roxana ent may need trach and PEG. Continue to provide supportive care, follow CBC and BMP. 12/14: Stop cefepime today, wean off from vent as tolerated. cont Heparin infusion, while monitoring for bleeding 12/15: Patient is not tolerating SBT trial, becoming apnic on CPAP. May need to place on trach and PEG. Continue heparin drip, monitor off antibiotics 12/16. Still maintained on vent. May need PEG and trach as her has been failed SBTs 12/17. Had low UO overnight. Started on tamsulosin. May need PEG and trach - defer to pulm. 12/18-. Plan for US thoracentesis to help with weaning. Remains on heparin drip for VTE. 12/20. Discussed with spouse today. He will get thoracentesis today. INR/PTT ordered. Heparin drip held. 12/21: planned for trach and PEG, cont supportive care, thoracentesis cancelled 12/22: cont supportive care, wean off from vent, daily SBT 12/23: tolerating SBT, possible extubation soon. cont supportive care 12/24: wean off vent as tolerated, daily SBT, follow clinically 12/25; cont to monitor, wean off vent as tolerated 12/26: Continue to monitor wean off vent as tolerated patient is tolerating SBT trial but not ready to wean off. 12/27: need trach and PEG, will f/u with GS, cont supportive care 12/28: pending trach/PEG 12/29: plan for trach and PEG on Saturday 12/30: Plan for trach and PEG. Temp 101F. Blood cultures, urinalysis and chest xray ordered. History Interval history: No change in medical condition. Still remains intubated. COVID-19 test negative. Hospitalist Physical - Constitutional Vitals: Temp Pulse Resp BP Pulse Ox 101.0 F H 103 H 21 110/92 85 12/31/19 16:00 12/31/19 17:00 12/31/19 17:00 12/31/19 17:00 12/31/19 17:00 General appearance: Present: well-nourished, other (Intubated. OG tube in place) - EENT Eyes: Present: PERRL - Neck Neck: Present: supple - Respiratory Respiratory: bilateral: diminished - Cardiovascular Heart Sounds: Present: S1 & S2 - Extremities Extremity abnormal: edema - Abdominal General gastrointestinal: soft, non-tender, non-distended, normal bowel sounds - Neurologic Neurologic: other (Sedated and intubated) HEART Score - HEART Score Troponin: Troponin T < 0.010 ng/mL (0.00-0.029) 11/24/19 02:53 Results - Labs CBC & Chem 7: 12/30/19 03:58 12/31/19 04:55 Labs: Laboratory Last Values WBC 10.5 K/mm3 (4.5-11.0) 12/30/19 03:58 RBC 3.54 M/mm3 (3.65-5.03) L 12/30/19 03:58 Hgb 9.8 gm/dl (11.8-15.2) L 12/30/19 03:58 Hct 30.7 % (35.5-45.6) L 12/30/19 03:58 MCV 87 fl (84-94) 12/30/19 03:58 MCH 28 pg (28-32) 12/30/19 03:58 MCHC 32 % (32-34) 12/30/19 03:58 RDW 16.8 % (13.2-15.2) H 12/30/19 03:58 Plt Count 269 K/mm3 (140-440) 12/30/19 03:58 Lymph % (Auto) 13.0 % (13.4-35.0) L 12/28/19 02:41 [place] % (Auto) 8.0 % (0.0-7.3) H 12/28/19 02:41 Eos % (Auto) 1.8 % (0.0-4.3) 12/28/19 02:41 Baso % (Auto) 0.9 % (0.0-1.8) 12/28/19 02:41 Lymph # (Auto) 1.7 K/mm3 (1.2-5.4) 12/28/19 02:41 [place] # (Auto) 1.0 K/mm3 (0.0-0.8) H 12/28/19 02:41 Eos # (Auto) 0.2 K/mm3 (0.0-0.4) 12/28/19 02:41 Baso # (Auto) 0.1 K/mm3 (0.0-0.1) 12/28/19 02:41 Add Manual Diff Complete 12/19/19 11:32 Total Counted 100 12/19/19 11:32 Seg Neutrophils % 76.3 % (40.0-70.0) H 12/28/19 02:41 Seg Neuts % (Manual) 82.0 % (40.0-70.0) H 12/19/19 11:32 Band Neutrophils % 0 % 12/19/19 11:32 Lymphocytes % (Manual) 10.0 % (13.4-35.0) L 12/19/19 11:32 Reactive Lymphs % (Man) 0 % 12/19/19 11:32 Monocytes % (Manual) 6.0 % (0.0-7.3) 12/19/19 11:32 Eosinophils % (Manual) 2.0 % (0.0-4.3) 12/19/19 11:32 Basophils % (Manual) 0 % (0.0-1.8) 12/19/19 11:32 Metamyelocytes % 0 % 12/19/19 11:32 Myelocytes % 0 % 12/19/19 11:32 Promyelocytes % 0 % 12/19/19 11:32 Blast Cells % 0 % 12/19/19 11:32 Nucleated RBC % 1.0 % (0.0-0.9) H 12/19/19 11:32 Seg Neutrophils # 9.9 K/mm3 (1.8-7.7) H 12/28/19 02:41 Seg Neutrophils # Man 12.0 K/mm3 (1.8-7.7) H 12/19/19 11:32 Band Neutrophils # 0.0 K/mm3 12/19/19 11:32 Lymphocytes # (Manual) 1.5 K/mm3 (1.2-5.4) 12/19/19 11:32 Abs React Lymphs (Man) 0.0 K/mm3 12/19/19 11:32 Monocytes # (Manual) 0.9 K/mm3 (0.0-0.8) H 12/19/19 11:32 Eosinophils # (Manual) 0.3 K/mm3 (0.0-0.4) 12/19/19 11:32 Basophils # (Manual) 0.0 K/mm3 (0.0-0.1) 12/19/19 11:32 Metamyelocytes # 0.0 K/mm3 12/19/19 11:32 Myelocytes # 0.0 K/mm3 12/19/19 11:32 Promyelocytes # 0.0 K/mm3 12/19/19 11:32 Blast Cells # 0.0 K/mm3 12/19/19 11:32 WBC Morphology Not Reportable 12/19/19 11:32 Hypersegmented Neuts Not Reportable 12/19/19 11:32 Hyposegmented Neuts Not Reportable 12/19/19 11:32 Hypogranular Neuts Not Reportable 12/19/19 11:32 Smudge Cells Not Reportable 12/19/19 11:32 Toxic Granulation Not Reportable 12/19/19 11:32 Toxic Vacuolation Not Reportable 12/19/19 11:32 Dohle Bodies Not Reportable 12/19/19 11:32 Pelger-Huet Anomaly Not Reportable 12/19/19 11:32 Hector Rods Not Reportable 12/19/19 11:32 Platelet Estimate Consistent w auto 12/19/19 11:32 Clumped Platelets Not Reportable 12/19/19 11:32 Plt Clumps, EDTA Not Reportable 12/19/19 11:32 Large Platelets Not Reportable 12/19/19 11:32 Giant Platelets Not Reportable 12/19/19 11:32 Platelet Satelliting Not Reportable 12/19/19 11:32 Plt Morphology Comment Not Reportable 12/19/19 11:32 RBC Morphology Not Reportable 12/19/19 11:32 Dimorphic RBCs Not Reportable 12/19/19 11:32 Polychromasia Not Reportable 12/19/19 11:32 Hypochromasia Few 12/19/19 11:32 Poikilocytosis Not Reportable 12/19/19 11:32 Anisocytosis 1+ 12/19/19 11:32 Microcytosis Few 12/19/19 11:32 Macrocytosis Few 12/19/19 11:32 Spherocytes Not Reportable 12/19/19 11:32 Pappenheimer Bodies Not Reportable 12/19/19 11:32 Sickle Cells Not Reportable 12/19/19 11:32 Target Cells Not Reportable 12/19/19 11:32 Tear Drop Cells Not Reportable 12/19/19 11:32 Ovalocytes Not Reportable 12/19/19 11:32 Helmet Cells Not Reportable 12/19/19 11:32 [place] Bodies Not Reportable 12/19/19 11:32 [place] Rings Not Reportable 12/19/19 11:32 Oc Cells Not Reportable 12/19/19 11:32 Bite Cells Not Reportable 12/19/19 11:32 Crenated Cell Not Reportable 12/19/19 11:32 Elliptocytes Not Reportable 12/19/19 11:32 Acanthocytes (Spur) Not Reportable 12/19/19 11:32 Rouleaux Not Reportable 12/19/19 11:32 Hemoglobin C Crystals Not Reportable 12/19/19 11:32 Schistocytes Not Reportable 12/19/19 11:32 Malaria parasites Not Reportable 12/19/19 11:32 Clifford Bodies Not Reportable 12/19/19 11:32 Hem Pathologist Commnt No 12/19/19 11:32 PT 13.8 Sec. (12.2-14.9) 12/21/19 10:13 INR 1.05 (0.87-1.13) 12/21/19 10:13 APTT 23.9 Sec. (24.2-36.6) L 12/21/19 10:13 Heparin Anti-Xa Level 0.31 U.I./ml (0.3-0.7) 12/30/19 19:57 ABG pH 7.439 pH Units (7.350-7.450) 12/30/19 04:59 POC ABG pCO2 52.9 mmHg (32.0-48.0) H 12/22/19 03:22 ABG pCO2 45.0 mm Hg 12/30/19 04:59 POC ABG pO2 52.3 mmHg (83-108) L 12/22/19 03:22 ABG pO2 89.3 mm Hg (80.0-90.0) 12/30/19 04:59 POC ABG HCO3 33.4 12/22/19 03:22 ABG HCO3 29.8 mmol/L (20.0-26.0) H 12/30/19 04:59 ABG O2 Saturation 96.3 % (95.0-99.0) 12/30/19 04:59 ABG O2 Content 20.6 (0.0-44) 12/30/19 04:59 POC ABG Base Excess 7.7 12/22/19 03:22 ABG Base Excess 4.8 mmol/L (-2.0-3.0) H 12/30/19 04:59 ABG Hemoglobin 11.2 gm/dl (14.0-18.0) L 12/30/19 04:59 ABG Oxyhemoglobin 84 (94-98) L 12/22/19 03:22 ABG Carboxyhemoglobin 2.2 % (0.0-5.0) 12/30/19 04:59 ABG Methemoglobin 0.4 % (0.0-1.5) 12/30/19 04:59 Oxyhemoglobin 93.8 % (95.0-99.0) L 12/30/19 04:59 Carboxyhemoglobin 0.7 (0.5-1.5) 12/22/19 03:22 FiO2 40 % 12/30/19 04:59 Sodium 138 mmol/L (137-145) 12/31/19 04:55 Potassium 5.6 mmol/L (3.6-5.0) H D 12/31/19 04:55 Chloride 100.0 mmol/L (98-107) 12/31/19 04:55 Carbon Dioxide 23 mmol/L (22-30) 12/31/19 04:55 Anion Gap 21 mmol/L 12/31/19 04:55 BUN 33 mg/dL (9-20) H 12/31/19 04:55 Creatinine 0.8 mg/dL (0.8-1.3) 12/31/19 04:55 Estimated GFR > 60 ml/min 12/31/19 04:55 BUN/Creatinine Ratio 41 % 12/31/19 04:55 Glucose 131 mg/dL (75-100) H 12/31/19 04:55 POC Glucose 181 (70-105) H 12/31/19 17:19 Lactic Acid 2.50 mmol/L (0.7-2.0) H* 11/24/19 10:37 Phosphorus 2.60 mg/dL (2.5-4.5) 12/06/19 05:24 Magnesium 2.60 mg/dL (1.7-2.3) H 12/07/19 12:41 Calcium 9.0 mg/dL (8.4-10.2) 12/31/19 04:55 Ferritin 84.4 ng/mL (30.0-300.0) 11/24/19 04:53 Direct Bilirubin < 0.2 mg/dL (0-0.2) 12/08/19 03:55 Indirect Bilirubin 0.2 mg/dL 12/08/19 03:55 Total Bilirubin 0.30 mg/dL (0.1-1.2) 12/19/19 11:32 Total Creatine Kinase 141 units/L (55-170) 11/24/19 02:53 CK-MB (CK-2) 4.3 ng/mL (0.0-4.0) H 11/24/19 02:53 AST 21 units/L (5-40) 12/19/19 11:32 ALT 40 units/L (7-56) 12/19/19 11:32 CK-MB (CK-2) Rel Index 3.0 (0-4) 11/24/19 02:53 Alkaline Phosphatase 68 units/L (35-129) 12/19/19 11:32 Troponin T < 0.010 ng/mL (0.00-0.029) 11/24/19 02:53 C-Reactive Protein 8.50 mg/dL (0.00-1.30) H 12/01/19 12:16 NT-Pro-B Natriuret Pep 286.1 pg/mL (0-900) 11/29/19 15:37 Lactate Dehydrogenase 228 units/L (91-180) H 12/19/19 04:45 Total Protein 6.2 g/dL (6.3-8.2) L 12/19/19 11:32 Albumin 2.4 g/dL (3.9-5) L 12/19/19 11:32 Albumin/Globulin Ratio 0.6 % 12/19/19 11:32 Procalcitonin 0.57 ng/mL (<0.15) 12/25/19 04:18 Urine Color Cecy (Yellow) 12/03/19 06:03 Urine Turbidity Clear (Clear) 12/03/19 06:03 Urine pH 5.0 (5.0-7.0) 12/03/19 06:03 Ur Specific [place] 1.030 (1.003-1.030) 12/03/19 06:03 Urine Protein <15 mg/dl mg/dL (Negative) 12/03/19 06:03 Urine Glucose (UA) Neg mg/dL (Negative) 12/03/19 06:03 Urine Ketones Neg mg/dL (Negative) 12/03/19 06:03 Urine Blood Neg (Negative) 12/03/19 06:03 Urine Nitrite Neg (Negative) 12/03/19 06:03 Urine Bilirubin Neg (Negative) 12/03/19 06:03 Urine Urobilinogen 4.0 mg/dL (<2.0) 12/03/19 06:03 Ur Leukocyte Esterase Neg (Negative) 12/03/19 06:03 Urine WBC (Auto) 8.0 /HPF (0.0-6.0) H 12/03/19 06:03 Urine RBC (Auto) 2.0 /HPF (0.0-6.0) 12/03/19 06:03 Urine Bacteria (Auto) 1+ /HPF (Negative) 12/03/19 06:03 Urine Mucus 1+ /HPF 12/03/19 06:03 Vancomycin Trough 14.2 ug/mL (5.0-20.0) 12/13/19 15:01 Coronavirus (PCR) Negative (Negative) 12/29/19 10:07 - Diagnostic Impressions Diagnostic Impressions: Echocardiogram 11/29/19 07:37 Transthoracic Echocardiogram Indication: CHF BP: 116/72 HR: 33 Conclusions *The study is technically limited due to poor acoustic windows. *Global left ventricular systolic function is normal. *The estimated ejection fraction is 50-55%. *Mild concentric left ventricular hypertrophy is observed. *There is trace of mitral regurgitation. *There is mild tricuspid regurgitation. Findings Procedure Info: The study quality is poor. The study is technically limited due to poor acoustic windows. The study is technically limited due to patient body habitus. Left Ventricle: The left ventricular chamber size is normal. Mild concentric left ventricular hypertrophy is observed. Global left ventricular systolic function is normal. The estimated ejection fraction is 50-55%. Left Atrium: The left atrial chamber size is normal. Right Ventricle: The right ventricular cavity size is normal. Right Atrium: The right atrial cavity size is normal. Aortic Valve: The aortic valve leaflets are moderately thickened. There is trace of aortic regurgitation. There is no evidence of aortic stenosis. Mitral Valve: The mitral valve leaflets are mildly thickened. There is trace of mitral regurgitation. There is no evidence of mitral stenosis. Tricuspid Valve: There is mild tricuspid regurgitation. No pulmonary hypertension is noted. Pulmonic Valve: There is trace pulmonic regurgitation. Pericardium: There is no pericardial effusion. Aorta: There is no dilatation of the aortic root. Venous: The inferior vena cava appears normal in size. Contrast: Definity was used to optimize study. Intravenous contrast was used to enhance endocardial border definition. Measurements Chambers 2D Name Value Normal Range Ao root diameter (2D) 3.4 cm (2 - 3.7) Aortic Valve Name Value Normal Range AV Vmax 0.98 m/sec - AV VTI 16.76 cm - AV peak gradient 3.83 mmHg - AV mean gradient 2.57 mmHg - LVOT diameter 3.11 cm - LVOT Vmax 0.68 m/sec - LVOT VTI 11.52 cm - LVOT peak gradient 1.84 mmHg - LVOT mean gradient 1.27 mmHg - SV LVOT 87.31 ml - MALOU (continuity Vmax) 5.24 cm2 - MALOU (continuity VTI) 5.21 cm2 - Tricuspid Valve Name Value Normal Range IVC diameter 2.24 cm (1.2 - 2.3) Hoffman/IV: Voiding Method Incontinent IV Catheter Type [Right Upper INT / Saline Lock arm] IV Catheter Type [Left Upper Mid-line arm] IV Catheter Type [Left Forearm Peripheral IV ] IV Catheter Type [Left Hand] INT / Saline Lock IV Catheter Type [Left Wrist] INT / Saline Lock IV Catheter Type [Right INT / Saline Lock Antecubital] Active Medications - Current Medications Current Medications: Generic Name Dose Route Start Last Admin Trade Name Freq PRN Reason Stop Dose Admin Acetaminophen 650 mg 12/31/19 11:43 12/31/19 12:43 Tylenol FEEDTUBE 650 mg Q6H PRN Administration Pain, Mild (1-3) Amiodarone HCl 200 mg 12/04/19 14:00 12/31/19 09:41 Cordarone PO 200 mg BID CAR Administration Lipase/Protease/Amylase 1 each 12/08/19 12:07 Pancreaztao Betancourt 10,500 Unit FEEDTUBE PRN PRN For Clogged Feeding Tube Docusate Sodium 100 mg 12/02/19 22:00 12/31/19 09:41 Colace FEEDTUBE 100 mg BID CAR Administration Famotidine 20 mg 11/25/19 10:00 12/31/19 09:41 Pepcid PO 20 mg BID CAR Administration Fentanyl 50 mcg 12/30/19 10:46 Sublimaze IV Q10MIN PRN ANALGESIA Haloperidol Lactate 5 mg 12/25/19 10:00 12/30/19 08:03 Haldol IV 5 mg Q6H PRN Administration Unrespon. to mult. doses BZD's Heparin Sodium/Sodium Chloride 25,000 unit in 500 mls @ 30 mls/hr 12/10/19 19:00 12/31/19 10:55 Heparin/ 0.45% Nacl-25,000 Unit/500 Ml IV 1,500 units/hr TITR CAR 30 mls/hr Administration Protocol 1,500 UNITS/HR Fentanyl Citrate 2,000 mcg in 100 mls @ 5.67 mls/hr 12/30/19 11:00 12/31/19 10:04 Fentanyl Drip Premix IV 2 mcg/kg/hr TITR CAR 11.34 mls/hr Administration Protocol 1 MCG/KG/HR Insulin Human Lispro 0 unit 12/05/19 19:00 12/31/19 12:46 Humalog SUB-Q 1 unit Q6H CAR Administration Protocol Lorazepam 2 mg 12/25/19 10:00 12/30/19 19:30 Ativan IV 2 mg Q6H PRN Administration AGITATION Metoprolol Tartrate 50 mg 12/07/19 14:00 12/31/19 13:31 Metoprolol PO 50 mg Q8HR CAR Administration Polyethylene Glycol 17 gm 12/04/19 22:00 12/30/19 22:25 Miralax 3350 PO 17 gm QHS CAR Administration Quetiapine Fumarate 200 mg 12/24/19 13:00 12/31/19 09:41 Seroquel PO 200 mg BID CAR Administration Simple Syrup 15 ml 12/08/19 12:07 Simple Syrup FEEDTUBE PRN PRN Hypoglycemia Simple Syrup 30 ml 12/08/19 12:07 Simple Syrup FEEDTUBE PRN PRN Hypoglycemia Sodium Bicarbonate 325 mg 12/08/19 12:07 Sodium Bicarbonate FEEDTUBE PRN PRN For Clogged Feeding Tube Sodium Chloride 10 ml 11/24/19 10:00 12/31/19 09:45 Sodium Chloride Flush Syringe 10 Ml IV 10 ml BID CAR Administration Tamsulosin HCl 0.8 mg 12/20/19 22:00 12/30/19 22:25 Flomax PO 0.8 mg QHS CAR Administration Nutrition/Malnutrition Assess - Dietary Evaluation Nutrition/Malnutrition Findings: Nutrition Notes Start: 11/24/19 12:22 Freq: Status: Active Protocol: Document 12/30/19 11:51 ARISTIDES (Rec: 12/30/19 11:56 [email or web address] [id number]) Co-Sign 12/30/19 11:51 Nutrition Notes Initial or Follow up Reassessment Current Diagnosis Coronary Artery Disease,Heart Failure,Respiratory Failure, Stroke,Hyperlipidemia Current Diet TF Vital HP 65ml/hr Labs/Tests BUN 26 BG 128 Pertinent Medications Insulin Height 6 ft 2 in Weight 116.7 kg [place] Body Weight (kg) 86.36 BMI 33.0 Weight change and time frame Wt change noted Weight Status Obese Subjective/Other Information F/U for stable TF. Pt tolerating TF at 65 ml/hr. Percent of energy/protein needs met: 100%/79% Burn Absent Trauma Absent Current % PO Negligible Minimum of two criteria No Fluid Accumulation Mild (non-severe) #1 Nutrition Diagnosis Inadequate oral intake Diagnosis Progress(for reassessment Continues documentation) Is patient on ventilator? Yes Is Patient Ambulatory and/or Out of Bed No REE-([facility]-confined to bed) 2442.744 Kcal/Kg value to use for calculation 13 Approximate Energy Requirements Using 1517 kcal/Kg Calculation Used for Recommendations Kcal/kg Additional Notes Protein needs 173g (at least 2 g/kg IBW) Fluid needs 1.5-1.9L Nutrition Intervention Change Diet Order: Continue TF Nutrition Support: Vital HP at 65ml/hr Flush 100ml q4h Hypernatermia 250ml q4h Kcal 1,560 Protein (gm) 137 Fluid (mL) 1,304 Goal #1 TF meets at least 80% of energy and protein needs. Goal #2 TF tolerance Anticipated Discharge Needs: unable to determine at this time Follow-Up By: 01/06/20 Additional Comments F/U for stable TF
[2019-12-31 18:40] LABS: BUN/Creatinine Ratio 44; Blood Urea Nitrogen 35 mg/dL (9-20); Calcium 9.1 mg/dL (8.4-10.2); Hemolysis Index 6
[2019-12-31] MEDS ORDERED: SODIUM POLYSTYRENE 15 GM/60 ML ORAL LIQD PO ONE (18:55)
[2019-12-31 18:57] LABS: Bilirubin,Urine NEG (Negative); Blood,Urine NEG (Negative); Color,Urine Amber (Yellow); Mucus,Urine 1+ /HPF; Protein,Urine <15 mg/dL mg/dL (Negative)
[2019-12-31 19:03] LABS: BUN/Creatinine Ratio 38; Blood Urea Nitrogen 34 mg/dL (9-20); Calcium 8.9 mg/dL (8.4-10.2); Hemolysis Index 23
--- NOTE | 2019-12-31 19:32 | XRay Report ---
Chest single view INDICATION: Dyspnea IMPRESSION: Worsening bilateral airspace disease when compared to yesterday's exam. The endotracheal tube terminates about 3 cm above the hi. Signer Name: Wong Malave MD Signed: 12/31/2019 7:27 PM Workstation Name: [id number]
[2019-12-31] MEDS: TAMSULOSIN 0.4 MG CAP PO SCH (21:42)
[2019-12-31] MEDS: POLYETHYLENE GLYCOL 3350 17 GM POWDER PO SCH (21:42)
[2020-01-01] MEDS: fentaNYL DRIP Premix 2,000 MCG/100 ML BAG IV SCH ×2 (03:32→14:35)
[2020-01-01] MEDS: HEPARIN/ 0.45% NACL DRIP 25,000 UNIT/500 ML BAG IV SCH (03:33)
[2020-01-01] MEDS: METOPROLOL TARTRATE 50 MG TAB PO SCH ×4 (06:14→21:44)
[2020-01-01] MEDS: INSULIN LISPRO 100 UNIT/ML VIAL 3 mL SUB-Q SCH ×5 (08:09→21:36)
--- NOTE | 2020-01-01 08:36 | Progress Note ---
<KACEY HICKEY - Last Filed: 01/01/20 08:33> Assessment and Plan Paroxysmal Afib on amiodarone and metoprolol Ischemic Cardiomyopathy, resolving re-echo this presentation reports an LVEF 40-45%. echo 08/2018: decreased LVEF 20-25%. Hx of CAD [facility] 12/2018: mild in-stent restenosis. No significant residual disease. Multifocal pneumonia negative COVID-19 test x 2 Respiratory failure Acute PE/DVT on IV heparin Recommendations: Continue amiodarone but will increase metoprolol for suppression of paroxysmal atrial fibrillation. Otherwise, conservative cardiac management. Subjective Date of service: 01/01/20 Principal diagnosis: Ac hypoxemic resp failure; Pneumonia; PUI COVID-19; CHF; COPD; HTN Interval history: No interval cardiac changes. Afib seen on telemetry this morning. Objective Vital Signs Temp Pulse Pulse Resp BP Pulse Ox 01/01/20 07:47 104 H 10 L 139/99 98 01/01/20 06:55 152 H 138/93 01/01/20 06:00 130 H 14 138/93 88 01/01/20 05:00 133 H 13 156/96 84 01/01/20 04:40 88 123/81 94 01/01/20 04:00 101 H 107 H 21 144/97 93 01/01/20 03:25 99 F 01/01/20 03:01 102 H 15 145/80 87 01/01/20 02:00 102 H 18 127/95 90 01/01/20 01:00 90 12 111/72 95 01/01/20 00:00 98.8 F 88 90 15 116/81 96 12/31/19 23:30 88 123/81 94 12/31/19 23:00 86 12 123/81 90 12/31/19 22:05 90 13 129/90 92 12/31/19 22:00 91 H 13 129/90 90 12/31/19 21:43 91 H 135/87 12/31/19 21:00 87 12 135/87 94 12/31/19 20:00 93 H 91 H 10 L 131/88 95 12/31/19 19:43 98.9 F 12/31/19 19:27 95 H 157/114 94 12/31/19 19:01 100 H 16 157/114 93 12/31/19 18:00 109 H 19 115/97 89 10/08/20 17:50 103 H 110/92 93 12/31/19 17:00 103 H 21 110/92 85 12/31/19 16:00 101.0 F H 92 H 92 H 16 112/84 92 12/31/19 15:00 90 14 123/81 88 12/31/19 14:00 94 H 16 127/93 91 12/31/19 13:31 95 H 120/85 12/31/19 13:00 97 H 14 120/85 92 12/31/19 12:59 96 H 15 120/85 92 12/31/19 12:00 100.3 F H 95 H 95 H 20 124/79 92 12/31/19 11:00 97 H 17 124/79 91 12/31/19 10:00 103 H 19 137/95 91 12/31/19 09:20 99 H 22 94 12/31/19 09:00 108 H 19 137/95 98 12/31/19 08:50 99 H 137/95 92 - Physical Examination General: Other (intubated on the vent) HEENT: Positive: PERRL Cardiac: Positive: irregularly irregular Neuro: Positive: Other (Intubated ,alert) Abdomen: Positive: Soft Skin: Positive: Clear Extremities: Absent: edema - Labs and Meds Comprehensive Metabolic Panel 12/31/19 12/31/19 Range/Units 17:36 18:16 Sodium 141 139 (137-145) mmol/L Potassium 5.0 4.9 (3.6-5.0) mmol/L Chloride 99.8 98.8 (98-107) mmol/L Carbon Dioxide 26 25 (22-30) mmol/L BUN 35 H 34 H (9-20) mg/dL Creatinine 0.8 0.9 (0.8-1.3) mg/dL Glucose 156 H 169 H (75-100) mg/dL Calcium 9.1 8.9 (8.4-10.2) mg/dL - Allied health notes Allied health notes reviewed: nursing <PETRONA SHAHID - Last Filed: 01/04/20 09:10> Assessment and Plan I SAW THIS PT & AGREE WITH THE Dx & Tx PLAN - Patient Problems (1) Acute respiratory failure Current Visit: Yes Status: Acute (2) Bilateral pneumonia Current Visit: Yes Status: Acute (3) COPD exacerbation Current Visit: No Status: Acute (4) Hypertension Current Visit: No Status: Acute Qualifiers: Hypertension type: essential hypertension Qualified Code(s): I10 - Essential (primary) hypertension (5) Cardiomyopathy Current Visit: Yes Status: Acute (6) Paroxysmal atrial fibrillation Current Visit: Yes Status: Acute Objective Vital Signs Temp Pulse Pulse Resp Resp BP Pulse Ox 01/04/20 07:43 102 H 107/71 97 01/04/20 06:14 104 H 105/75 01/04/20 04:00 104 H 105/75 97 01/04/20 03:19 99.5 F 01/04/20 00:03 108 H 104/68 01/04/20 00:00 98.1 F 115 H 105 H 18 19 104/68 100 01/03/20 23:31 130 H 103/70 100 01/03/20 23:30 118 H 103/70 100 01/03/20 23:09 124 H 94/76 100 01/03/20 23:01 127 H 94/76 01/03/20 22:30 118 H 112/73 01/03/20 22:00 110 H 128/72 99 01/03/20 21:30 113 H 126/69 100 01/03/20 21:01 112 H 110/69 100 01/03/20 20:31 103 H 102/75 98 01/03/20 20:00 103 H 137 H 16 19 102/66 99 01/03/20 19:47 97.8 F 01/03/20 19:30 105 H 102/72 97 01/03/20 19:27 102 H 108/66 97 01/03/20 19:00 97 H 108/66 86 01/03/20 18:31 105 H 112/61 95 01/03/20 18:00 105 H 120/71 87 01/03/20 17:30 115 H 114/75 90 01/03/20 17:23 138 H 111/72 01/03/20 17:01 135 H 98/77 97 01/03/20 16:30 103 H 111/72 92 01/03/20 16:00 98.6 F 111 H 108 H 18 19 104/61 93 01/03/20 15:30 118 H 111/63 93 01/03/20 15:00 143 H 116/72 92 01/03/20 14:30 142 H 119/77 95 01/03/20 14:03 141 H 103/70 01/03/20 14:00 134 H 103/70 94 01/03/20 13:30 143 H 101/72 95 01/03/20 13:00 134 H 102/66 76 L 01/03/20 12:30 141 H 102/66 96 01/03/20 12:00 99.2 F 142 H 141 H 16 16 110/71 97 01/03/20 11:54 141 H 106/74 01/03/20 11:30 146 H 106/74 94 01/03/20 11:18 145 H 113/81 95 01/03/20 11:00 144 H 113/81 93 01/03/20 10:30 144 H 109/73 91 01/03/20 10:00 144 H 123/64 93 01/03/20 09:30 138 H 124/88 94
[2020-01-01] MEDS: AMIODARONE 200 MG TAB PO SCH ×3 (08:47→21:43)
[2020-01-01] MEDS ORDERED: FUROSEMIDE 40 MG/4 ML INJ IV ONE (09:15)
[2020-01-01] MEDS: FUROSEMIDE 40 MG/4 ML INJ IV SCH ×2 (10:14→21:38)
[2020-01-01] MEDS: QUEtiapine 200 MG TAB PO SCH ×2 (10:14→21:40)
--- NOTE | 2020-01-01 11:11 | Anesthesia Consultation ---
Anesthesia Consult and Med Hx - Airway Anesthetic Teeth Evaluation: Poor ROM Head & Neck: Adequate Mental/Hyoid Distance: Adequate Mallampati Class: Class III Intubation Access Assessment: Possibly Difficult - Pre-Operative Health Status ASA Pre-Surgery Classification: ASA3 Proposed Anesthetic Plan: MAC - Pulmonary Hx Smoking: Yes Hx Asthma: No COPD: Yes Hx Pneumonia: No - Cardiovascular System Hx Hypertension: Yes (CHF) Hx Coronary Artery Disease: Yes (open heart surgery) Hx Heart Attack/AMI: Yes Hx Angina: Yes Hx Percutaneous Transluminal Coronary Angioplasty (PTCA): Yes (2016) Hx Pacemaker: No Hx Internal Defibrillator: No - Central Nervous System Hx Neuromuscular Disorder: No (Arthritis ) Hx Seizures: No CVA: Yes Hx Psychiatric Problems: No - Gastrointestinal Hx Ulcer: Yes (PERFORATED ULCER HX) - Endocrine Hx End Stage Renal Disease: No - Hematic Hx Anemia: Yes - Other Systems Hx Cancer: No (DENIES)
--- NOTE | 2020-01-01 11:12 | Anesthesia Day of Surgery ---
Anesthesia Day of Surgery - Day of Surgery Patient Examined: Yes Patient H&P Reviewed: Yes Patient is NPO: Yes
[2020-01-01 11:27] LABS: Alanine Aminotransferase 97 units/L (7-56); Albumin 2.8 g/dL (3.9-5); Blood Urea Nitrogen 31 mg/dL (9-20); Calcium 9.1 mg/dL (8.4-10.2); Hemolysis Index 115
--- NOTE | 2020-01-01 11:28 | Progress Note ---
Assessment and Plan Acute hypoxemic respiratory failure Bilateral pneumonia, community acquired. Acute LLL branch P.E. Acute DVT Person under investigation for COVID-19 infection. Acute congestive heart failure exacerbation. History of cerebrovascular accident. Acute chronic obstructive pulmonary disease exacerbation. Hypertension and hypertensive urgency at presentation. History of arthritis. Leukocytosis. Lactic acidosis. Oropharyngeal dysphagia - for tracheostomy today - IV Heparin on hold - transition to oral agent post trach & PEG - hold weaning today - continue care as below otherwise; - continue daily SAT's and SBT assessment as tolerated - continue Flomax dose at 0.8 mg qhs - continue low dose seroquel - COVID isolation per facility protocol - free water for hypernatremia - continue diuresis while following electrolytes / I's & O's - continue to wean oxygen for O2 sat's > 92% - continue bronchodilators with pulmonary hygiene per RT - VAP bundle addressed (Aspiration precautions, HOB >40) - continue to wean per pulmonary driven protocols - sedation target is RASS 0 to -1 - continue prn analgesia per CPOT score - follow clinically re: fever curves / trend WBC - Avoid delirium (no benzodiazepines if they can be avoided) - Maintain sleep-wake cycle - enteral nutrition at goal rate as tolerated - continue accucheck's with glycemic control per SSI for target blood glucose goal of 140-180 mg/dL while critically ill; Avoid hypoglycemia - for VTE he is on IV Heparin - continue stress ulcer prophylaxis with Famotidine - continue mobility protocols for pressure ulcer prophylaxis - continue fall precautions - continue wound care management per RN / WCT - Supportive transfusions to keep HgB>7g/dL - CXR's and ABG's prn - Continue to monitor neurologic function - Continue chronic home medications - Continue all supportive care ........ re-evaluate in am & prn CONDITION: CRITICAL PROGNOSIS: GUARDED CODE STATUS: FULL CODE The high probability of a clinically significant, sudden or life threatening deterioration of the [Respiratory, cardiovascular & neurological] system(s) required my full and direct attention, intervention and personal management. The aggregate critical care time was [32] minutes without overlap. Time includes spent on [x] Data Review and interpretation [x] Patient assessment and monitoring of vital signs [x] Documentation [x] Medication orders and management Subjective Date of service: 01/01/20 Principal diagnosis: Ac hypoxemic resp failure; Pneumonia; PUI COVID-19; CHF; COPD; HTN Interval history: Patient is seen today for: Acute hypoxemic respiratory failure; [place]. Pneumonia (CAP); PUI COVID-19 infection; AE-CHF; AE-COPD; H/O CVA; HTN Seen and examined at bedside; 24 hour events reviewed; nursing and respiratory care staff consulted; no adverse overnight events reported to me; resting peacefully in bed; remains on MVS; for trach today Objective Vital Signs - 12hr 12/31/19 01/01/20 01/01/20 23:30 00:00 01:00 Temperature 98.8 F Pulse Rate 88 88 90 Pulse Rate [ 90 From Monitor] Respiratory 15 12 Rate Blood Pressure 123/81 116/81 111/72 O2 Sat by Pulse 94 96 95 Oximetry 01/01/20 01/01/20 01/01/20 02:00 03:01 03:25 Temperature 99 F Pulse Rate 102 H 102 H Pulse Rate [ From Monitor] Respiratory 18 15 Rate Blood Pressure 127/95 145/80 O2 Sat by Pulse 90 87 Oximetry 01/01/20 01/01/20 01/01/20 04:00 04:40 05:00 Temperature Pulse Rate 101 H 88 133 H Pulse Rate [ 107 H From Monitor] Respiratory 21 13 Rate Blood Pressure 144/97 123/81 156/96 O2 Sat by Pulse 93 94 84 Oximetry 01/01/20 01/01/20 01/01/20 06:00 06:55 07:47 Temperature Pulse Rate 130 H 152 H 104 H Pulse Rate [ From Monitor] Respiratory 14 10 L Rate Blood Pressure 138/93 138/93 139/99 O2 Sat by Pulse 88 98 Oximetry 01/01/20 01/01/20 08:00 10:04 Temperature 98.8 F Pulse Rate 103 H Pulse Rate [ From Monitor] Respiratory Rate Blood Pressure 142/91 O2 Sat by Pulse 95 Oximetry Constitutional: no acute distress, alert, other (elderly and obese male, n ormocephalic with mildly increased respiratory effort at rest on MVS) Eyes: non-icteric ENT: oropharynx moist, other (ETT 24 cm JASON) Neck: supple, no JVD Effort: normal Ascultation: Bilateral: diminished breath sounds, rhonchi Percussion: Bilateral: not dull Cardiovascular: irregular rhythm Gastrointestinal: normoactive bowel sounds, soft, non-tender, non-distended Integumentary: normal Extremities: no cyanosis, pulses normal, no ischemia or petechiae, edema (pedal and peripheral) Neurologic: non-focal exam (moves all extremities with extreme agitation), pupils equal and round, motor strength normal and, unable to assess Psychiatric: other (unable to assess re: AMS) CBC and BMP: 01/06/20 04:44 01/06/20 04:44 ABG, PT/INR, D-dimer: ABG ABG pH 7.439 pH Units (7.350-7.450) 12/30/19 04:59 POC ABG pCO2 52.9 mmHg (32.0-48.0) H 12/22/19 03:22 ABG pCO2 45.0 mm Hg 12/30/19 04:59 POC ABG pO2 52.3 mmHg (83-108) L 12/22/19 03:22 ABG pO2 89.3 mm Hg (80.0-90.0) 12/30/19 04:59 POC ABG HCO3 33.4 12/22/19 03:22 ABG O2 Saturation 96.3 % (95.0-99.0) 12/30/19 04:59 PT/INR, D-dimer PT 13.8 Sec. (12.2-14.9) 12/21/19 10:13 INR 1.05 (0.87-1.13) 12/21/19 10:13 Abnormal lab findings: Abnormal Labs 11/24/19 11/24/19 11/24/19 02:53 02:53 03:45 WBC 14.3 H RBC Hgb Hct MCHC RDW 17.2 H MCH Lymph % (Auto) [place] % (Auto) [place] # Eos # [place] # (Auto) Eos # (Auto) Seg Neutrophils % Seg Neuts % (Manual) Baso # (Auto) Lymphocytes % (Manual) Monocytes % (Manual) Eosinophils % (Manual) Basophils % (Manual) Seg Neutrophils # Seg Neutrophils # Man 8.3 H Lymphocytes # (Manual) Monocytes # (Manual) 0.9 H Eosinophils # (Manual) Nucleated RBC % Basophils # (Manual) APTT Heparin Anti-Xa Level ABG pH 7.313 L POC ABG pO2 ABG pO2 102.8 H ABG HCO3 ABG O2 Saturation ABG Base Excess -2.9 L POC ABG pCO2 ABG Hemoglobin ABG Oxyhemoglobin Oxyhemoglobin 93.9 L Sodium Potassium Chloride Carbon Dioxide BUN Creatinine Glucose 195 H POC Glucose Lactic Acid Calcium Phosphorus Magnesium AST ALT Lactate Dehydrogenase CK-MB (CK-2) 4.3 H C-Reactive Protein NT-Pro-B Natriuret Pep 1181 H Total Protein Albumin Urine WBC (Auto) 11/24/19 11/24/19 11/24/19 04:53 04:53 10:37 WBC RBC Hgb Hct MCHC RDW MCH Lymph % (Auto) [place] % (Auto) [place] # Eos # [place] # (Auto) Eos # (Auto) Seg Neutrophils % Seg Neuts % (Manual) Baso # (Auto) Lymphocytes % (Manual) Monocytes % (Manual) Eosinophils % (Manual) Basophils % (Manual) Seg Neutrophils # Seg Neutrophils # Man Lymphocytes # (Manual) Monocytes # (Manual) Eosinophils # (Manual) Nucleated RBC % Basophils # (Manual) APTT Heparin Anti-Xa Level ABG pH POC ABG pO2 ABG pO2 ABG HCO3 ABG O2 Saturation ABG Base Excess POC ABG pCO2 ABG Hemoglobin ABG Oxyhemoglobin Oxyhemoglobin Sodium Potassium Chloride Carbon Dioxide BUN Creatinine Glucose 162 H POC Glucose Lactic Acid 2.40 H* 2.50 H* Calcium Phosphorus Magnesium AST ALT Lactate Dehydrogenase 240 H CK-MB (CK-2) C-Reactive Protein NT-Pro-B Natriuret Pep Total Protein Albumin Urine WBC (Auto) 11/24/19 11/24/19 11/24/19 12:21 14:50 19:54 WBC RBC Hgb Hct MCHC RDW MCH Lymph % (Auto) [place] % (Auto) [place] # Eos # [place] # (Auto) Eos # (Auto) Seg Neutrophils % Seg Neuts % (Manual) Baso # (Auto) Lymphocytes % (Manual) Monocytes % (Manual) Eosinophils % (Manual) Basophils % (Manual) Seg Neutrophils # Seg Neutrophils # Man Lymphocytes # (Manual) Monocytes # (Manual) Eosinophils # (Manual) Nucleated RBC % Basophils # (Manual) APTT Heparin Anti-Xa Level ABG pH POC ABG pO2 ABG pO2 ABG HCO3 ABG O2 Saturation ABG Base Excess POC ABG pCO2 ABG Hemoglobin ABG Oxyhemoglobin Oxyhemoglobin Sodium Potassium Chloride Carbon Dioxide BUN Creatinine Glucose POC Glucose 145 H 143 H 124 H Lactic Acid Calcium Phosphorus Magnesium AST ALT Lactate Dehydrogenase CK-MB (CK-2) C-Reactive Protein NT-Pro-B Natriuret Pep Total Protein Albumin Urine WBC (Auto) 11/25/19 11/25/19 11/25/19 00:18 03:18 05:11 WBC 13.7 H RBC Hgb Hct MCHC RDW 17.1 H MCH Lymph % (Auto) 10.8 L [place] % (Auto) 8.7 H [place] # 1.2 H Eos # [place] # (Auto) Eos # (Auto) Seg Neutrophils % 80.2 H Seg Neuts % (Manual) Baso # (Auto) Lymphocytes % (Manual) Monocytes % (Manual) Eosinophils % (Manual) Basophils % (Manual) Seg Neutrophils # 11.0 H Seg Neutrophils # Man Lymphocytes # (Manual) Monocytes # (Manual) Eosinophils # (Manual) Nucleated RBC % Basophils # (Manual) APTT Heparin Anti-Xa Level ABG pH 7.333 L POC ABG pO2 ABG pO2 61.2 L ABG HCO3 ABG O2 Saturation 90.2 L ABG Base Excess POC ABG pCO2 ABG Hemoglobin 13.7 L ABG Oxyhemoglobin Oxyhemoglobin 88.2 L Sodium Potassium Chloride Carbon Dioxide BUN Creatinine Glucose POC Glucose 109 H Lactic Acid Calcium Phosphorus Magnesium AST ALT Lactate Dehydrogenase CK-MB (CK-2) C-Reactive Protein NT-Pro-B Natriuret Pep Total Protein Albumin Urine WBC (Auto) 11/25/19 11/25/19 11/26/19 05:11 11:40 03:12 WBC RBC Hgb Hct MCHC RDW MCH Lymph % (Auto) [place] % (Auto) [place] # Eos # [place] # (Auto) Eos # (Auto) Seg Neutrophils % Seg Neuts % (Manual) Baso # (Auto) Lymphocytes % (Manual) Monocytes % (Manual) Eosinophils % (Manual) Basophils % (Manual) Seg Neutrophils # Seg Neutrophils # Man Lymphocytes # (Manual) Monocytes # (Manual) Eosinophils # (Manual) Nucleated RBC % Basophils # (Manual) APTT Heparin Anti-Xa Level ABG pH POC ABG pO2 ABG pO2 155.1 H ABG HCO3 27.8 H ABG O2 Saturation ABG Base Excess POC ABG pCO2 ABG Hemoglobin 12.2 L ABG Oxyhemoglobin Oxyhemoglobin Sodium Potassium Chloride Carbon Dioxide BUN 23 H Creatinine Glucose 110 H POC Glucose 108 H Lactic Acid Calcium Phosphorus Magnesium AST ALT Lactate Dehydrogenase CK-MB (CK-2) C-Reactive Protein NT-Pro-B Natriuret Pep Total Protein Albumin Urine WBC (Auto) 11/26/19 11/26/19 11/26/19 06:17 10:43 10:43 WBC 11.4 H RBC Hgb Hct MCHC RDW 17.1 H MCH Lymph % (Auto) [place] % (Auto) [place] # Eos # [place] # (Auto) Eos # (Auto) Seg Neutrophils % Seg Neuts % (Manual) Baso # (Auto) Lymphocytes % (Manual) Monocytes % (Manual) Eosinophils % (Manual) Basophils % (Manual) Seg Neutrophils # Seg Neutrophils # Man Lymphocytes # (Manual) Monocytes # (Manual) Eosinophils # (Manual) Nucleated RBC % Basophils # (Manual) APTT Heparin Anti-Xa Level ABG pH POC ABG pO2 ABG pO2 ABG HCO3 ABG O2 Saturation ABG Base Excess POC ABG pCO2 ABG Hemoglobin ABG Oxyhemoglobin Oxyhemoglobin Sodium Potassium Chloride Carbon Dioxide BUN 29 H Creatinine Glucose POC Glucose 107 H Lactic Acid Calcium Phosphorus Magnesium AST ALT Lactate Dehydrogenase CK-MB (CK-2) C-Reactive Protein NT-Pro-B Natriuret Pep Total Protein Albumin Urine WBC (Auto) 11/26/19 11/27/19 11/27/19 17:11 01:53 04:11 WBC RBC Hgb Hct MCHC RDW MCH Lymph % (Auto) [place] % (Auto) [place] # Eos # [place] # (Auto) Eos # (Auto) Seg Neutrophils % Seg Neuts % (Manual) Baso # (Auto) Lymphocytes % (Manual) Monocytes % (Manual) Eosinophils % (Manual) Basophils % (Manual) Seg Neutrophils # Seg Neutrophils # Man Lymphocytes # (Manual) Monocytes # (Manual) Eosinophils # (Manual) Nucleated RBC % Basophils # (Manual) APTT Heparin Anti-Xa Level ABG pH POC ABG pO2 ABG pO2 ABG HCO3 29.2 H ABG O2 Saturation ABG Base Excess 3.4 H POC ABG pCO2 ABG Hemoglobin 13.3 L ABG Oxyhemoglobin Oxyhemoglobin 94.5 L Sodium Potassium Chloride Carbon Dioxide BUN Creatinine Glucose POC Glucose 113 H 108 H Lactic Acid Calcium Phosphorus Magnesium AST ALT Lactate Dehydrogenase CK-MB (CK-2) C-Reactive Protein NT-Pro-B Natriuret Pep Total Protein Albumin Urine WBC (Auto) 11/27/19 11/28/19 11/28/19 05:27 05:00 05:25 WBC RBC Hgb Hct MCHC RDW MCH Lymph % (Auto) [place] % (Auto) [place] # Eos # [place] # (Auto) Eos # (Auto) Seg Neutrophils % Seg Neuts % (Manual) Baso # (Auto) Lymphocytes % (Manual) Monocytes % (Manual) Eosinophils % (Manual) Basophils % (Manual) Seg Neutrophils # Seg Neutrophils # Man Lymphocytes # (Manual) Monocytes # (Manual) Eosinophils # (Manual) Nucleated RBC % Basophils # (Manual) APTT Heparin Anti-Xa Level ABG pH POC ABG pO2 68.1 L ABG pO2 ABG HCO3 ABG O2 Saturation ABG Base Excess POC ABG pCO2 ABG Hemoglobin ABG Oxyhemoglobin 91.2 L Oxyhemoglobin Sodium Potassium Chloride Carbon Dioxide BUN Creatinine Glucose POC Glucose 111 H 110 H Lactic Acid Calcium Phosphorus Magnesium AST ALT Lactate Dehydrogenase CK-MB (CK-2) C-Reactive Protein NT-Pro-B Natriuret Pep Total Protein Albumin Urine WBC (Auto) 11/28/19 11/28/19 11/28/19 12:08 13:47 13:47 WBC 11.3 H RBC Hgb Hct MCHC RDW 16.1 H MCH Lymph % (Auto) [place] % (Auto) 9.9 H [place] # 1.1 H Eos # [place] # (Auto) Eos # (Auto) Seg Neutrophils % 71.4 H Seg Neuts % (Manual) Baso # (Auto) Lymphocytes % (Manual) Monocytes % (Manual) Eosinophils % (Manual) Basophils % (Manual) Seg Neutrophils # 8.1 H Seg Neutrophils # Man Lymphocytes # (Manual) Monocytes # (Manual) Eosinophils # (Manual) Nucleated RBC % Basophils # (Manual) APTT Heparin Anti-Xa Level ABG pH POC ABG pO2 ABG pO2 ABG HCO3 ABG O2 Saturation ABG Base Excess POC ABG pCO2 ABG Hemoglobin ABG Oxyhemoglobin Oxyhemoglobin Sodium Potassium Chloride Carbon Dioxide BUN 23 H Creatinine Glucose 123 H POC Glucose 112 H Lactic Acid Calcium Phosphorus Magnesium AST ALT Lactate Dehydrogenase CK-MB (CK-2) C-Reactive Protein NT-Pro-B Natriuret Pep Total Protein Albumin 3.7 L Urine WBC (Auto) 11/28/19 11/29/19 11/29/19 17:26 03:55 17:04 WBC RBC Hgb Hct MCHC RDW MCH Lymph % (Auto) [place] % (Auto) [place] # Eos # [place] # (Auto) Eos # (Auto) Seg Neutrophils % Seg Neuts % (Manual) Baso # (Auto) Lymphocytes % (Manual) Monocytes % (Manual) Eosinophils % (Manual) Basophils % (Manual) Seg Neutrophils # Seg Neutrophils # Man Lymphocytes # (Manual) Monocytes # (Manual) Eosinophils # (Manual) Nucleated RBC % Basophils # (Manual) APTT Heparin Anti-Xa Level ABG pH POC ABG pO2 ABG pO2 65.7 L ABG HCO3 28.3 H ABG O2 Saturation 93.9 L ABG Base Excess 3.6 H POC ABG pCO2 ABG Hemoglobin 13.3 L ABG Oxyhemoglobin Oxyhemoglobin 91.5 L Sodium Potassium Chloride Carbon Dioxide BUN Creatinine Glucose POC Glucose 123 H 119 H Lactic Acid Calcium Phosphorus Magnesium AST ALT Lactate Dehydrogenase CK-MB (CK-2) C-Reactive Protein NT-Pro-B Natriuret Pep Total Protein Albumin Urine WBC (Auto) 11/30/19 11/30/19 11/30/19 04:17 04:17 04:56 WBC 13.4 H RBC Hgb Hct MCHC RDW 15.6 H MCH Lymph % (Auto) [place] % (Auto) [place] # Eos # [place] # (Auto) Eos # (Auto) Seg Neutrophils % Seg Neuts % (Manual) Baso # (Auto) Lymphocytes % (Manual) Monocytes % (Manual) Eosinophils % (Manual) Basophils % (Manual) Seg Neutrophils # Seg Neutrophils # Man Lymphocytes # (Manual) Monocytes # (Manual) Eosinophils # (Manual) Nucleated RBC % Basophils # (Manual) APTT Heparin Anti-Xa Level ABG pH POC ABG pO2 ABG pO2 56.3 L ABG HCO3 29.3 H ABG O2 Saturation 91.5 L ABG Base Excess 4.7 H POC ABG pCO2 ABG Hemoglobin 12.1 L ABG Oxyhemoglobin Oxyhemoglobin 89.2 L Sodium 147 H Potassium Chloride Carbon Dioxide BUN 30 H Creatinine Glucose 124 H POC Glucose Lactic Acid Calcium Phosphorus Magnesium AST ALT Lactate Dehydrogenase CK-MB (CK-2) C-Reactive Protein NT-Pro-B Natriuret Pep Total Protein Albumin 3.8 L Urine WBC (Auto) 11/30/19 11/30/19 11/30/19 05:51 11:54 18:17 WBC RBC Hgb Hct MCHC RDW MCH Lymph % (Auto) [place] % (Auto) [place] # Eos # [place] # (Auto) Eos # (Auto) Seg Neutrophils % Seg Neuts % (Manual) Baso # (Auto) Lymphocytes % (Manual) Monocytes % (Manual) Eosinophils % (Manual) Basophils % (Manual) Seg Neutrophils # Seg Neutrophils # Man Lymphocytes # (Manual) Monocytes # (Manual) Eosinophils # (Manual) Nucleated RBC % Basophils # (Manual) APTT Heparin Anti-Xa Level ABG pH POC ABG pO2 ABG pO2 ABG HCO3 ABG O2 Saturation ABG Base Excess POC ABG pCO2 ABG Hemoglobin ABG Oxyhemoglobin Oxyhemoglobin Sodium Potassium Chloride Carbon Dioxide BUN Creatinine Glucose POC Glucose 127 H 115 H 143 H Lactic Acid Calcium Phosphorus Magnesium AST ALT Lactate Dehydrogenase CK-MB (CK-2) C-Reactive Protein NT-Pro-B Natriuret Pep Total Protein Albumin Urine WBC (Auto) 12/01/19 12/01/19 12/01/19 01:18 05:22 12:16 WBC RBC Hgb Hct MCHC RDW MCH Lymph % (Auto) [place] % (Auto) [place] # Eos # [place] # (Auto) Eos # (Auto) Seg Neutrophils % Seg Neuts % (Manual) Baso # (Auto) Lymphocytes % (Manual) Monocytes % (Manual) Eosinophils % (Manual) Basophils % (Manual) Seg Neutrophils # Seg Neutrophils # Man Lymphocytes # (Manual) Monocytes # (Manual) Eosinophils # (Manual) Nucleated RBC % Basophils # (Manual) APTT Heparin Anti-Xa Level ABG pH POC ABG pO2 ABG pO2 ABG HCO3 ABG O2 Saturation ABG Base Excess POC ABG pCO2 ABG Hemoglobin ABG Oxyhemoglobin Oxyhemoglobin Sodium Potassium 3.5 L Chloride 107.8 H Carbon Dioxide BUN 37 H Creatinine Glucose 157 H POC Glucose 118 H 148 H Lactic Acid Calcium 8.2 L D Phosphorus Magnesium AST 48 H ALT 60 H Lactate Dehydrogenase 194 H CK-MB (CK-2) C-Reactive Protein 8.50 H NT-Pro-B Natriuret Pep Total Protein 5.5 L Albumin 2.8 L Urine WBC (Auto) 12/01/19 12/02/19 12/02/19 18:04 00:05 05:16 WBC 11.4 H RBC Hgb Hct MCHC RDW 15.9 H MCH Lymph % (Auto) [place] % (Auto) 9.9 H [place] # 1.1 H Eos # [place] # (Auto) Eos # (Auto) Seg Neutrophils % 70.3 H Seg Neuts % (Manual) Baso # (Auto) Lymphocytes % (Manual) Monocytes % (Manual) Eosinophils % (Manual) Basophils % (Manual) Seg Neutrophils # 8.0 H Seg Neutrophils # Man Lymphocytes # (Manual) Monocytes # (Manual) Eosinophils # (Manual) Nucleated RBC % Basophils # (Manual) APTT Heparin Anti-Xa Level ABG pH POC ABG pO2 ABG pO2 ABG HCO3 ABG O2 Saturation ABG Base Excess POC ABG pCO2 ABG Hemoglobin ABG Oxyhemoglobin Oxyhemoglobin Sodium Potassium Chloride Carbon Dioxide BUN Creatinine Glucose POC Glucose 143 H 107 H Lactic Acid Calcium Phosphorus Magnesium AST ALT Lactate Dehydrogenase CK-MB (CK-2) C-Reactive Protein NT-Pro-B Natriuret Pep Total Protein Albumin Urine WBC (Auto) 12/02/19 12/02/19 12/02/19 05:16 06:03 11:52 WBC RBC Hgb Hct MCHC RDW MCH Lymph % (Auto) [place] % (Auto) [place] # Eos # [place] # (Auto) Eos # (Auto) Seg Neutrophils % Seg Neuts % (Manual) Baso # (Auto) Lymphocytes % (Manual) Monocytes % (Manual) Eosinophils % (Manual) Basophils % (Manual) Seg Neutrophils # Seg Neutrophils # Man Lymphocytes # (Manual) Monocytes # (Manual) Eosinophils # (Manual) Nucleated RBC % Basophils # (Manual) APTT Heparin Anti-Xa Level ABG pH POC ABG pO2 ABG pO2 ABG HCO3 ABG O2 Saturation ABG Base Excess POC ABG pCO2 ABG Hemoglobin ABG Oxyhemoglobin Oxyhemoglobin Sodium 146 H Potassium Chloride Carbon Dioxide BUN 28 H Creatinine Glucose 123 H POC Glucose 110 H 152 H Lactic Acid Calcium Phosphorus Magnesium AST ALT Lactate Dehydrogenase CK-MB (CK-2) C-Reactive Protein NT-Pro-B Natriuret Pep Total Protein Albumin Urine WBC (Auto) 12/02/19 12/02/19 12/02/19 12:58 17:58 23:36 WBC RBC Hgb Hct MCHC RDW MCH Lymph % (Auto) [place] % (Auto) [place] # Eos # [place] # (Auto) Eos # (Auto) Seg Neutrophils % Seg Neuts % (Manual) Baso # (Auto) Lymphocytes % (Manual) Monocytes % (Manual) Eosinophils % (Manual) Basophils % (Manual) Seg Neutrophils # Seg Neutrophils # Man Lymphocytes # (Manual) Monocytes # (Manual) Eosinophils # (Manual) Nucleated RBC % Basophils # (Manual) APTT Heparin Anti-Xa Level ABG pH POC ABG pO2 78.1 L ABG pO2 ABG HCO3 ABG O2 Saturation ABG Base Excess POC ABG pCO2 ABG Hemoglobin ABG Oxyhemoglobin Oxyhemoglobin Sodium Potassium Chloride Carbon Dioxide BUN Creatinine Glucose POC Glucose 120 H 123 H Lactic Acid Calcium Phosphorus Magnesium AST ALT Lactate Dehydrogenase CK-MB (CK-2) C-Reactive Protein NT-Pro-B Natriuret Pep Total Protein Albumin Urine WBC (Auto) 12/03/19 12/03/19 12/03/19 06:03 06:14 11:46 WBC RBC Hgb Hct MCHC RDW MCH Lymph % (Auto) [place] % (Auto) [place] # Eos # [place] # (Auto) Eos # (Auto) Seg Neutrophils % Seg Neuts % (Manual) Baso # (Auto) Lymphocytes % (Manual) Monocytes % (Manual) Eosinophils % (Manual) Basophils % (Manual) Seg Neutrophils # Seg Neutrophils # Man Lymphocytes # (Manual) Monocytes # (Manual) Eosinophils # (Manual) Nucleated RBC % Basophils # (Manual) APTT Heparin Anti-Xa Level ABG pH POC ABG pO2 ABG pO2 ABG HCO3 ABG O2 Saturation ABG Base Excess POC ABG pCO2 ABG Hemoglobin ABG Oxyhemoglobin Oxyhemoglobin Sodium Potassium Chloride Carbon Dioxide BUN Creatinine Glucose POC Glucose 142 H 130 H Lactic Acid Calcium Phosphorus Magnesium AST ALT Lactate Dehydrogenase CK-MB (CK-2) C-Reactive Protein NT-Pro-B Natriuret Pep Total Protein Albumin Urine WBC (Auto) 8.0 H 12/03/19 12/03/19 12/04/19 15:50 17:39 00:04 WBC RBC Hgb Hct MCHC RDW MCH Lymph % (Auto) [place] % (Auto) [place] # Eos # [place] # (Auto) Eos # (Auto) Seg Neutrophils % Seg Neuts % (Manual) Baso # (Auto) Lymphocytes % (Manual) Monocytes % (Manual) Eosinophils % (Manual) Basophils % (Manual) Seg Neutrophils # Seg Neutrophils # Man Lymphocytes # (Manual) Monocytes # (Manual) Eosinophils # (Manual) Nucleated RBC % Basophils # (Manual) APTT Heparin Anti-Xa Level ABG pH POC ABG pO2 ABG pO2 ABG HCO3 ABG O2 Saturation ABG Base Excess POC ABG pCO2 ABG Hemoglobin ABG Oxyhemoglobin Oxyhemoglobin Sodium Potassium Chloride Carbon Dioxide BUN Creatinine Glucose POC Glucose 146 H 133 H Lactic Acid Calcium Phosphorus 2.40 L Magnesium AST ALT Lactate Dehydrogenase CK-MB (CK-2) C-Reactive Protein NT-Pro-B Natriuret Pep Total Protein Albumin Urine WBC (Auto) 12/04/19 12/04/19 12/04/19 03:58 03:58 05:22 WBC 12.5 H RBC Hgb 11.2 L Hct 35.2 L MCHC RDW 16.0 H MCH Lymph % (Auto) [place] % (Auto) 9.6 H [place] # 1.2 H Eos # 0.5 H [place] # (Auto) Eos # (Auto) Seg Neutrophils % Seg Neuts % (Manual) Baso # (Auto) Lymphocytes % (Manual) Monocytes % (Manual) Eosinophils % (Manual) Basophils % (Manual) Seg Neutrophils # 8.6 H Seg Neutrophils # Man Lymphocytes # (Manual) Monocytes # (Manual) Eosinophils # (Manual) Nucleated RBC % Basophils # (Manual) APTT Heparin Anti-Xa Level ABG pH POC ABG pO2 ABG pO2 ABG HCO3 ABG O2 Saturation ABG Base Excess POC ABG pCO2 ABG Hemoglobin ABG Oxyhemoglobin Oxyhemoglobin Sodium 146 H Potassium Chloride 108.6 H Carbon Dioxide BUN 30 H Creatinine 0.7 L Glucose 121 H POC Glucose 132 H Lactic Acid Calcium Phosphorus Magnesium AST ALT Lactate Dehydrogenase CK-MB (CK-2) C-Reactive Protein NT-Pro-B Natriuret Pep Total Protein Albumin Urine WBC (Auto) 12/04/19 12/04/19 12/05/19 13:26 18:43 00:19 WBC RBC Hgb Hct MCHC RDW MCH Lymph % (Auto) [place] % (Auto) [place] # Eos # [place] # (Auto) Eos # (Auto) Seg Neutrophils % Seg Neuts % (Manual) Baso # (Auto) Lymphocytes % (Manual) Monocytes % (Manual) Eosinophils % (Manual) Basophils % (Manual) Seg Neutrophils # Seg Neutrophils # Man Lymphocytes # (Manual) Monocytes # (Manual) Eosinophils # (Manual) Nucleated RBC % Basophils # (Manual) APTT Heparin Anti-Xa Level ABG pH POC ABG pO2 ABG pO2 ABG HCO3 ABG O2 Saturation ABG Base Excess POC ABG pCO2 ABG Hemoglobin ABG Oxyhemoglobin Oxyhemoglobin Sodium Potassium Chloride Carbon Dioxide BUN Creatinine Glucose POC Glucose 185 H 156 H 150 H Lactic Acid Calcium Phosphorus Magnesium AST ALT Lactate Dehydrogenase CK-MB (CK-2) C-Reactive Protein NT-Pro-B Natriuret Pep Total Protein Albumin Urine WBC (Auto) 12/05/19 12/05/19 12/05/19 03:37 03:37 05:14 WBC 16.3 H RBC Hgb 11.4 L Hct MCHC RDW 15.6 H MCH Lymph % (Auto) 9.9 L [place] % (Auto) 9.7 H [place] # 1.6 H Eos # [place] # (Auto) Eos # (Auto) Seg Neutrophils % 78.0 H Seg Neuts % (Manual) Baso # (Auto) Lymphocytes % (Manual) Monocytes % (Manual) Eosinophils % (Manual) Basophils % (Manual) Seg Neutrophils # 12.7 H Seg Neutrophils # Man Lymphocytes # (Manual) Monocytes # (Manual) Eosinophils # (Manual) Nucleated RBC % Basophils # (Manual) APTT Heparin Anti-Xa Level ABG pH POC ABG pO2 ABG pO2 ABG HCO3 ABG O2 Saturation ABG Base Excess POC ABG pCO2 ABG Hemoglobin ABG Oxyhemoglobin Oxyhemoglobin Sodium 146 H Potassium Chloride 107.2 H Carbon Dioxide BUN 27 H Creatinine 0.7 L Glucose 171 H POC Glucose 168 H Lactic Acid Calcium Phosphorus Magnesium AST ALT Lactate Dehydrogenase CK-MB (CK-2) C-Reactive Protein NT-Pro-B Natriuret Pep Total Protein Albumin Urine WBC (Auto) 12/05/19 12/05/19 12/05/19 12:31 18:10 23:58 WBC RBC Hgb Hct MCHC RDW MCH Lymph % (Auto) [place] % (Auto) [place] # Eos # [place] # (Auto) Eos # (Auto) Seg Neutrophils % Seg Neuts % (Manual) Baso # (Auto) Lymphocytes % (Manual) Monocytes % (Manual) Eosinophils % (Manual) Basophils % (Manual) Seg Neutrophils # Seg Neutrophils # Man Lymphocytes # (Manual) Monocytes # (Manual) Eosinophils # (Manual) Nucleated RBC % Basophils # (Manual) APTT Heparin Anti-Xa Level ABG pH POC ABG pO2 ABG pO2 ABG HCO3 ABG O2 Saturation ABG Base Excess POC ABG pCO2 ABG Hemoglobin ABG Oxyhemoglobin Oxyhemoglobin Sodium Potassium Chloride Carbon Dioxide BUN Creatinine Glucose POC Glucose 159 H 198 H 115 H Lactic Acid Calcium Phosphorus Magnesium AST ALT Lactate Dehydrogenase CK-MB (CK-2) C-Reactive Protein NT-Pro-B Natriuret Pep Total Protein Albumin Urine WBC (Auto) 12/06/19 12/06/19 12/06/19 05:24 05:24 05:25 WBC 14.9 H RBC Hgb 10.8 L Hct 34.0 L MCHC RDW 15.6 H MCH Lymph % (Auto) 10.7 L [place] % (Auto) 8.3 H [place] # 1.2 H Eos # [place] # (Auto) Eos # (Auto) Seg Neutrophils % 78.7 H Seg Neuts % (Manual) Baso # (Auto) Lymphocytes % (Manual) Monocytes % (Manual) Eosinophils % (Manual) Basophils % (Manual) Seg Neutrophils # 11.7 H Seg Neutrophils # Man Lymphocytes # (Manual) Monocytes # (Manual) Eosinophils # (Manual) Nucleated RBC % Basophils # (Manual) APTT Heparin Anti-Xa Level ABG pH POC ABG pO2 ABG pO2 ABG HCO3 ABG O2 Saturation ABG Base Excess POC ABG pCO2 ABG Hemoglobin ABG Oxyhemoglobin Oxyhemoglobin Sodium 148 H Potassium 5.1 H Chloride 107.6 H Carbon Dioxide BUN 27 H Creatinine 0.7 L Glucose 155 H POC Glucose 157 H Lactic Acid Calcium Phosphorus Magnesium AST ALT Lactate Dehydrogenase CK-MB (CK-2) C-Reactive Protein NT-Pro-B Natriuret Pep Total Protein Albumin Urine WBC (Auto) 12/07/19 12/07/19 12/07/19 00:13 05:34 11:33 WBC RBC Hgb Hct MCHC RDW MCH Lymph % (Auto) [place] % (Auto) [place] # Eos # [place] # (Auto) Eos # (Auto) Seg Neutrophils % Seg Neuts % (Manual) Baso # (Auto) Lymphocytes % (Manual) Monocytes % (Manual) Eosinophils % (Manual) Basophils % (Manual) Seg Neutrophils # Seg Neutrophils # Man Lymphocytes # (Manual) Monocytes # (Manual) Eosinophils # (Manual) Nucleated RBC % Basophils # (Manual) APTT Heparin Anti-Xa Level ABG pH POC ABG pO2 ABG pO2 ABG HCO3 ABG O2 Saturation ABG Base Excess POC ABG pCO2 ABG Hemoglobin ABG Oxyhemoglobin Oxyhemoglobin Sodium Potassium Chloride Carbon Dioxide BUN Creatinine Glucose POC Glucose 142 H 111 H 169 H Lactic Acid Calcium Phosphorus Magnesium AST ALT Lactate Dehydrogenase CK-MB (CK-2) C-Reactive Protein NT-Pro-B Natriuret Pep Total Protein Albumin Urine WBC (Auto) 12/07/19 12/07/19 12/07/19 12:41 13:25 18:19 WBC 12.4 H RBC 3.53 L Hgb 10.2 L Hct 32.1 L MCHC RDW 15.3 H MCH Lymph % (Auto) 10.6 L [place] % (Auto) 7.8 H [place] # 1.0 H Eos # [place] # (Auto) Eos # (Auto) Seg Neutrophils % 77.6 H Seg Neuts % (Manual) Baso # (Auto) Lymphocytes % (Manual) Monocytes % (Manual) Eosinophils % (Manual) Basophils % (Manual) Seg Neutrophils # 9.6 H Seg Neutrophils # Man Lymphocytes # (Manual) Monocytes # (Manual) Eosinophils # (Manual) Nucleated RBC % Basophils # (Manual) APTT Heparin Anti-Xa Level ABG pH POC ABG pO2 ABG pO2 ABG HCO3 ABG O2 Saturation ABG Base Excess POC ABG pCO2 ABG Hemoglobin ABG Oxyhemoglobin Oxyhemoglobin Sodium 149 H Potassium Chloride 108.4 H Carbon Dioxide BUN 26 H Creatinine 0.6 L Glucose 149 H POC Glucose 164 H Lactic Acid Calcium Phosphorus Magnesium 2.60 H AST 121 H ALT 145 H Lactate Dehydrogenase CK-MB (CK-2) C-Reactive Protein NT-Pro-B Natriuret Pep Total Protein Albumin 2.6 L Urine WBC (Auto) 12/07/19 12/08/19 12/08/19 22:25 00:02 03:55 WBC 13.3 H RBC 3.40 L Hgb 9.7 L Hct 30.8 L MCHC 31 L RDW 15.5 H MCH Lymph % (Auto) [place] % (Auto) 8.1 H [place] # 1.1 H Eos # [place] # (Auto) Eos # (Auto) Seg Neutrophils % 73.0 H Seg Neuts % (Manual) Baso # (Auto) Lymphocytes % (Manual) Monocytes % (Manual) Eosinophils % (Manual) Basophils % (Manual) Seg Neutrophils # 9.7 H Seg Neutrophils # Man Lymphocytes # (Manual) Monocytes # (Manual) Eosinophils # (Manual) Nucleated RBC % Basophils # (Manual) APTT Heparin Anti-Xa Level 0.12 L ABG pH POC ABG pO2 ABG pO2 ABG HCO3 ABG O2 Saturation ABG Base Excess POC ABG pCO2 ABG Hemoglobin ABG Oxyhemoglobin Oxyhemoglobin Sodium Potassium Chloride Carbon Dioxide BUN Creatinine Glucose POC Glucose 151 H Lactic Acid Calcium Phosphorus Magnesium AST ALT Lactate Dehydrogenase CK-MB (CK-2) C-Reactive Protein NT-Pro-B Natriuret Pep Total Protein Albumin Urine WBC (Auto) 12/08/19 12/08/19 12/08/19 03:55 05:21 06:01 WBC RBC Hgb Hct MCHC RDW MCH Lymph % (Auto) [place] % (Auto) [place] # Eos # [place] # (Auto) Eos # (Auto) Seg Neutrophils % Seg Neuts % (Manual) Baso # (Auto) Lymphocytes % (Manual) Monocytes % (Manual) Eosinophils % (Manual) Basophils % (Manual) Seg Neutrophils # Seg Neutrophils # Man Lymphocytes # (Manual) Monocytes # (Manual) Eosinophils # (Manual) Nucleated RBC % Basophils # (Manual) APTT Heparin Anti-Xa Level 0.20 L ABG pH POC ABG pO2 ABG pO2 ABG HCO3 ABG O2 Saturation ABG Base Excess POC ABG pCO2 ABG Hemoglobin ABG Oxyhemoglobin Oxyhemoglobin Sodium 149 H Potassium Chloride 108.0 H Carbon Dioxide BUN 28 H Creatinine 0.6 L Glucose 144 H POC Glucose 143 H Lactic Acid Calcium Phosphorus Magnesium AST 98 H ALT 145 H Lactate Dehydrogenase CK-MB (CK-2) C-Reactive Protein NT-Pro-B Natriuret Pep Total Protein 6.0 L Albumin 2.4 L Urine WBC (Auto) 12/08/19 12/08/19 12/08/19 12:08 18:11 23:53 WBC RBC Hgb Hct MCHC RDW MCH Lymph % (Auto) [place] % (Auto) [place] # Eos # [place] # (Auto) Eos # (Auto) Seg Neutrophils % Seg Neuts % (Manual) Baso # (Auto) Lymphocytes % (Manual) Monocytes % (Manual) Eosinophils % (Manual) Basophils % (Manual) Seg Neutrophils # Seg Neutrophils # Man Lymphocytes # (Manual) Monocytes # (Manual) Eosinophils # (Manual) Nucleated RBC % Basophils # (Manual) APTT Heparin Anti-Xa Level ABG pH POC ABG pO2 ABG pO2 ABG HCO3 ABG O2 Saturation ABG Base Excess POC ABG pCO2 ABG Hemoglobin ABG Oxyhemoglobin Oxyhemoglobin Sodium Potassium Chloride Carbon Dioxide BUN Creatinine Glucose POC Glucose 172 H 122 H 162 H Lactic Acid Calcium Phosphorus Magnesium AST ALT Lactate Dehydrogenase CK-MB (CK-2) C-Reactive Protein NT-Pro-B Natriuret Pep Total Protein Albumin Urine WBC (Auto) 12/09/19 12/09/19 12/09/19 04:03 04:03 05:53 WBC RBC Hgb 9.1 L Hct 28.9 L MCHC RDW MCH Lymph % (Auto) [place] % (Auto) [place] # Eos # [place] # (Auto) Eos # (Auto) Seg Neutrophils % Seg Neuts % (Manual) Baso # (Auto) Lymphocytes % (Manual) Monocytes % (Manual) Eosinophils % (Manual) Basophils % (Manual) Seg Neutrophils # Seg Neutrophils # Man Lymphocytes # (Manual) Monocytes # (Manual) Eosinophils # (Manual) Nucleated RBC % Basophils # (Manual) APTT Heparin Anti-Xa Level 0.15 L ABG pH POC ABG pO2 ABG pO2 ABG HCO3 ABG O2 Saturation ABG Base Excess POC ABG pCO2 ABG Hemoglobin ABG Oxyhemoglobin Oxyhemoglobin Sodium Potassium Chloride Carbon Dioxide BUN Creatinine Glucose POC Glucose 124 H Lactic Acid Calcium Phosphorus Magnesium AST ALT Lactate Dehydrogenase CK-MB (CK-2) C-Reactive Protein NT-Pro-B Natriuret Pep Total Protein Albumin Urine WBC (Auto) 12/09/19 12/09/19 12/10/19 09:43 12:41 00:13 WBC RBC Hgb Hct MCHC RDW MCH Lymph % (Auto) [place] % (Auto) [place] # Eos # [place] # (Auto) Eos # (Auto) Seg Neutrophils % Seg Neuts % (Manual) Baso # (Auto) Lymphocytes % (Manual) Monocytes % (Manual) Eosinophils % (Manual) Basophils % (Manual) Seg Neutrophils # Seg Neutrophils # Man Lymphocytes # (Manual) Monocytes # (Manual) Eosinophils # (Manual) Nucleated RBC % Basophils # (Manual) APTT Heparin Anti-Xa Level ABG pH POC ABG pO2 ABG pO2 ABG HCO3 ABG O2 Saturation ABG Base Excess POC ABG pCO2 ABG Hemoglobin ABG Oxyhemoglobin Oxyhemoglobin Sodium Potassium Chloride Carbon Dioxide BUN 25 H Creatinine 0.6 L Glucose 131 H POC Glucose 109 H 120 H Lactic Acid Calcium Phosphorus Magnesium AST ALT Lactate Dehydrogenase CK-MB (CK-2) C-Reactive Protein NT-Pro-B Natriuret Pep Total Protein Albumin Urine WBC (Auto) 12/10/19 12/10/1912/09/20 04:14 04:14 12:00 WBC 13.3 H RBC 3.34 L Hgb 9.6 L Hct 30.4 L MCHC RDW 15.4 H MCH Lymph % (Auto) [place] % (Auto) [place] # Eos # [place] # (Auto) Eos # (Auto) Seg Neutrophils % Seg Neuts % (Manual) 75.0 H Baso # (Auto) Lymphocytes % (Manual) 13.0 L Monocytes % (Manual) 8.0 H Eosinophils % (Manual) Basophils % (Manual) 2.0 H Seg Neutrophils # Seg Neutrophils # Man 10.0 H Lymphocytes # (Manual) Monocytes # (Manual) 1.1 H Eosinophils # (Manual) Nucleated RBC % Basophils # (Manual) 0.3 H APTT Heparin Anti-Xa Level ABG pH POC ABG pO2 ABG pO2 ABG HCO3 ABG O2 Saturation ABG Base Excess POC ABG pCO2 ABG Hemoglobin ABG Oxyhemoglobin Oxyhemoglobin Sodium 147 H Potassium Chloride 108.3 H Carbon Dioxide BUN 21 H Creatinine 0.6 L Glucose 104 H POC Glucose 133 H Lactic Acid Calcium Phosphorus Magnesium AST ALT Lactate Dehydrogenase CK-MB (CK-2) C-Reactive Protein NT-Pro-B Natriuret Pep Total Protein Albumin Urine WBC (Auto) 12/10/19 12/10/19 12/11/19 18:44 21:20 00:08 WBC 14.9 H RBC 3.36 L Hgb 9.6 L Hct 30.5 L MCHC RDW 15.4 H MCH Lymph % (Auto) [place] % (Auto) [place] # Eos # [place] # (Auto) Eos # (Auto) Seg Neutrophils % Seg Neuts % (Manual) Baso # (Auto) Lymphocytes % (Manual) Monocytes % (Manual) Eosinophils % (Manual) Basophils % (Manual) Seg Neutrophils # Seg Neutrophils # Man Lymphocytes # (Manual) Monocytes # (Manual) Eosinophils # (Manual) Nucleated RBC % Basophils # (Manual) APTT Heparin Anti-Xa Level ABG pH POC ABG pO2 ABG pO2 ABG HCO3 ABG O2 Saturation ABG Base Excess POC ABG pCO2 ABG Hemoglobin ABG Oxyhemoglobin Oxyhemoglobin Sodium Potassium Chloride Carbon Dioxide BUN Creatinine Glucose POC Glucose 119 H 134 H Lactic Acid Calcium Phosphorus Magnesium AST ALT Lactate Dehydrogenase CK-MB (CK-2) C-Reactive Protein NT-Pro-B Natriuret Pep Total Protein Albumin Urine WBC (Auto) 12/11/19 12/11/19 12/11/19 03:54 07:28 08:36 WBC 11.9 H RBC 3.25 L Hgb 9.6 L Hct 29.2 L MCHC RDW 15.7 H MCH Lymph % (Auto) [place] % (Auto) [place] # Eos # [place] # (Auto) Eos # (Auto) Seg Neutrophils % Seg Neuts % (Manual) Baso # (Auto) Lymphocytes % (Manual) Monocytes % (Manual) Eosinophils % (Manual) Basophils % (Manual) Seg Neutrophils # Seg Neutrophils # Man Lymphocytes # (Manual) Monocytes # (Manual) Eosinophils # (Manual) Nucleated RBC % Basophils # (Manual) APTT Heparin Anti-Xa Level 0.10 L 0.16 L ABG pH POC ABG pO2 ABG pO2 ABG HCO3 ABG O2 Saturation ABG Base Excess POC ABG pCO2 ABG Hemoglobin ABG Oxyhemoglobin Oxyhemoglobin Sodium Potassium Chloride Carbon Dioxide BUN Creatinine Glucose POC Glucose Lactic Acid Calcium Phosphorus Magnesium AST ALT Lactate Dehydrogenase CK-MB (CK-2) C-Reactive Protein NT-Pro-B Natriuret Pep Total Protein Albumin Urine WBC (Auto) 12/11/19 12/11/19 12/11/19 08:36 11:45 17:15 WBC RBC Hgb Hct MCHC RDW MCH Lymph % (Auto) [place] % (Auto) [place] # Eos # [place] # (Auto) Eos # (Auto) Seg Neutrophils % Seg Neuts % (Manual) Baso # (Auto) Lymphocytes % (Manual) Monocytes % (Manual) Eosinophils % (Manual) Basophils % (Manual) Seg Neutrophils # Seg Neutrophils # Man Lymphocytes # (Manual) Monocytes # (Manual) Eosinophils # (Manual) Nucleated RBC % Basophils # (Manual) APTT Heparin Anti-Xa Level ABG pH POC ABG pO2 ABG pO2 ABG HCO3 ABG O2 Saturation ABG Base Excess POC ABG pCO2 ABG Hemoglobin ABG Oxyhemoglobin Oxyhemoglobin Sodium Potassium Chloride Carbon Dioxide BUN Creatinine 0.5 L Glucose 128 H POC Glucose 136 H 109 H Lactic Acid Calcium Phosphorus Magnesium AST ALT Lactate Dehydrogenase CK-MB (CK-2) C-Reactive Protein NT-Pro-B Natriuret Pep Total Protein Albumin Urine WBC (Auto) 12/12/19 12/12/19 12/12/19 00:03 05:53 05:53 WBC RBC Hgb 8.8 L Hct 27.6 L MCHC RDW MCH Lymph % (Auto) [place] % (Auto) [place] # Eos # [place] # (Auto) Eos # (Auto) Seg Neutrophils % Seg Neuts % (Manual) Baso # (Auto) Lymphocytes % (Manual) Monocytes % (Manual) Eosinophils % (Manual) Basophils % (Manual) Seg Neutrophils # Seg Neutrophils # Man Lymphocytes # (Manual) Monocytes # (Manual) Eosinophils # (Manual) Nucleated RBC % Basophils # (Manual) APTT Heparin Anti-Xa Level 0.22 L ABG pH POC ABG pO2 ABG pO2 ABG HCO3 ABG O2 Saturation ABG Base Excess POC ABG pCO2 ABG Hemoglobin ABG Oxyhemoglobin Oxyhemoglobin Sodium Potassium Chloride Carbon Dioxide BUN Creatinine Glucose POC Glucose 116 H Lactic Acid Calcium Phosphorus Magnesium AST ALT Lactate Dehydrogenase CK-MB (CK-2) C-Reactive Protein NT-Pro-B Natriuret Pep Total Protein Albumin Urine WBC (Auto) 12/12/19 12/12/19 12/12/19 09:38 12:18 17:44 WBC RBC Hgb Hct MCHC RDW MCH Lymph % (Auto) [place] % (Auto) [place] # Eos # [place] # (Auto) Eos # (Auto) Seg Neutrophils % Seg Neuts % (Manual) Baso # (Auto) Lymphocytes % (Manual) Monocytes % (Manual) Eosinophils % (Manual) Basophils % (Manual) Seg Neutrophils # Seg Neutrophils # Man Lymphocytes # (Manual) Monocytes # (Manual) Eosinophils # (Manual) Nucleated RBC % Basophils # (Manual) APTT Heparin Anti-Xa Level ABG pH POC ABG pO2 ABG pO2 ABG HCO3 ABG O2 Saturation ABG Base Excess POC ABG pCO2 ABG Hemoglobin ABG Oxyhemoglobin Oxyhemoglobin Sodium Potassium Chloride Carbon Dioxide BUN Creatinine Glucose POC Glucose 115 H 146 H 146 H Lactic Acid Calcium Phosphorus Magnesium AST ALT Lactate Dehydrogenase CK-MB (CK-2) C-Reactive Protein NT-Pro-B Natriuret Pep Total Protein Albumin Urine WBC (Auto) 12/12/19 12/13/19 12/13/19 23:33 05:32 05:32 WBC 13.1 H RBC 3.27 L Hgb 9.5 L Hct 29.3 L MCHC RDW 15.6 H MCH Lymph % (Auto) [place] % (Auto) [place] # Eos # [place] # (Auto) Eos # (Auto) Seg Neutrophils % Seg Neuts % (Manual) 74.0 H Baso # (Auto) Lymphocytes % (Manual) 8.0 L Monocytes % (Manual) 9.0 H Eosinophils % (Manual) 5.0 H Basophils % (Manual) Seg Neutrophils # Seg Neutrophils # Man 9.7 H Lymphocytes # (Manual) 1.0 L Monocytes # (Manual) 1.2 H Eosinophils # (Manual) 0.7 H Nucleated RBC % Basophils # (Manual) APTT Heparin Anti-Xa Level 0.20 L ABG pH POC ABG pO2 ABG pO2 ABG HCO3 ABG O2 Saturation ABG Base Excess POC ABG pCO2 ABG Hemoglobin ABG Oxyhemoglobin Oxyhemoglobin Sodium Potassium Chloride Carbon Dioxide BUN Creatinine Glucose POC Glucose 126 H Lactic Acid Calcium Phosphorus Magnesium AST ALT Lactate Dehydrogenase CK-MB (CK-2) C-Reactive Protein NT-Pro-B Natriuret Pep Total Protein Albumin Urine WBC (Auto) 12/13/19 12/13/19 12/13/19 05:32 05:46 11:57 WBC RBC Hgb Hct MCHC RDW MCH Lymph % (Auto) [place] % (Auto) [place] # Eos # [place] # (Auto) Eos # (Auto) Seg Neutrophils % Seg Neuts % (Manual) Baso # (Auto) Lymphocytes % (Manual) Monocytes % (Manual) Eosinophils % (Manual) Basophils % (Manual) Seg Neutrophils # Seg Neutrophils # Man Lymphocytes # (Manual) Monocytes # (Manual) Eosinophils # (Manual) Nucleated RBC % Basophils # (Manual) APTT Heparin Anti-Xa Level ABG pH POC ABG pO2 ABG pO2 ABG HCO3 ABG O2 Saturation ABG Base Excess POC ABG pCO2 ABG Hemoglobin ABG Oxyhemoglobin Oxyhemoglobin Sodium Potassium Chloride Carbon Dioxide 31 H BUN Creatinine 0.6 L Glucose 114 H POC Glucose 118 H 133 H Lactic Acid Calcium Phosphorus Magnesium AST ALT Lactate Dehydrogenase CK-MB (CK-2) C-Reactive Protein NT-Pro-B Natriuret Pep Total Protein Albumin Urine WBC (Auto) 12/13/19 12/13/19 12/14/19 17:44 23:46 05:32 WBC RBC Hgb Hct MCHC RDW MCH Lymph % (Auto) [place] % (Auto) [place] # Eos # [place] # (Auto) Eos # (Auto) Seg Neutrophils % Seg Neuts % (Manual) Baso # (Auto) Lymphocytes % (Manual) Monocytes % (Manual) Eosinophils % (Manual) Basophils % (Manual) Seg Neutrophils # Seg Neutrophils # Man Lymphocytes # (Manual) Monocytes # (Manual) Eosinophils # (Manual) Nucleated RBC % Basophils # (Manual) APTT Heparin Anti-Xa Level ABG pH POC ABG pO2 ABG pO2 ABG HCO3 ABG O2 Saturation ABG Base Excess POC ABG pCO2 ABG Hemoglobin ABG Oxyhemoglobin Oxyhemoglobin Sodium Potassium Chloride Carbon Dioxide BUN Creatinine Glucose POC Glucose 161 H 126 H 139 H Lactic Acid Calcium Phosphorus Magnesium AST ALT Lactate Dehydrogenase CK-MB (CK-2) C-Reactive Protein NT-Pro-B Natriuret Pep Total Protein Albumin Urine WBC (Auto) 12/14/19 12/14/19 12/14/19 06:03 06:03 09:37 WBC RBC Hgb 9.6 L Hct 30.4 L MCHC RDW MCH Lymph % (Auto) [place] % (Auto) [place] # Eos # [place] # (Auto) Eos # (Auto) Seg Neutrophils % Seg Neuts % (Manual) Baso # (Auto) Lymphocytes % (Manual) Monocytes % (Manual) Eosinophils % (Manual) Basophils % (Manual) Seg Neutrophils # Seg Neutrophils # Man Lymphocytes # (Manual) Monocytes # (Manual) Eosinophils # (Manual) Nucleated RBC % Basophils # (Manual) APTT Heparin Anti-Xa Level 0.24 L ABG pH POC ABG pO2 ABG pO2 ABG HCO3 ABG O2 Saturation ABG Base Excess POC ABG pCO2 ABG Hemoglobin ABG Oxyhemoglobin Oxyhemoglobin Sodium Potassium Chloride Carbon Dioxide BUN Creatinine 0.6 L Glucose 162 H POC Glucose Lactic Acid Calcium Phosphorus Magnesium AST 71 H ALT 118 H Lactate Dehydrogenase CK-MB (CK-2) C-Reactive Protein NT-Pro-B Natriuret Pep Total Protein 6.2 L Albumin 2.3 L Urine WBC (Auto) 12/14/19 12/14/19 12/15/19 12:06 18:18 00:19 WBC RBC Hgb Hct MCHC RDW MCH Lymph % (Auto) [place] % (Auto) [place] # Eos # [place] # (Auto) Eos # (Auto) Seg Neutrophils % Seg Neuts % (Manual) Baso # (Auto) Lymphocytes % (Manual) Monocytes % (Manual) Eosinophils % (Manual) Basophils % (Manual) Seg Neutrophils # Seg Neutrophils # Man Lymphocytes # (Manual) Monocytes # (Manual) Eosinophils # (Manual) Nucleated RBC % Basophils # (Manual) APTT Heparin Anti-Xa Level ABG pH POC ABG pO2 ABG pO2 ABG HCO3 ABG O2 Saturation ABG Base Excess POC ABG pCO2 ABG Hemoglobin ABG Oxyhemoglobin Oxyhemoglobin Sodium Potassium Chloride Carbon Dioxide BUN Creatinine Glucose POC Glucose 147 H 166 H 123 H Lactic Acid Calcium Phosphorus Magnesium AST ALT Lactate Dehydrogenase CK-MB (CK-2) C-Reactive Protein NT-Pro-B Natriuret Pep Total Protein Albumin Urine WBC (Auto) 12/15/19 12/15/19 12/15/19 05:28 05:29 05:29 WBC 14.9 H RBC 3.19 L Hgb 9.1 L Hct 28.7 L MCHC RDW 16.0 H MCH Lymph % (Auto) [place] % (Auto) [place] # Eos # [place] # (Auto) Eos # (Auto) Seg Neutrophils % Seg Neuts % (Manual) Baso # (Auto) Lymphocytes % (Manual) Monocytes % (Manual) Eosinophils % (Manual) Basophils % (Manual) Seg Neutrophils # Seg Neutrophils # Man Lymphocytes # (Manual) Monocytes # (Manual) Eosinophils # (Manual) Nucleated RBC % Basophils # (Manual) APTT Heparin Anti-Xa Level 0.19 L ABG pH POC ABG pO2 ABG pO2 ABG HCO3 ABG O2 Saturation ABG Base Excess POC ABG pCO2 ABG Hemoglobin ABG Oxyhemoglobin Oxyhemoglobin Sodium Potassium Chloride Carbon Dioxide BUN Creatinine 0.6 L Glucose 110 H POC Glucose Lactic Acid Calcium Phosphorus Magnesium AST ALT Lactate Dehydrogenase CK-MB (CK-2) C-Reactive Protein NT-Pro-B Natriuret Pep Total Protein Albumin Urine WBC (Auto) 12/15/19 12/15/19 12/15/19 05:53 11:50 17:26 WBC RBC Hgb Hct MCHC RDW MCH Lymph % (Auto) [place] % (Auto) [place] # Eos # [place] # (Auto) Eos # (Auto) Seg Neutrophils % Seg Neuts % (Manual) Baso # (Auto) Lymphocytes % (Manual) Monocytes % (Manual) Eosinophils % (Manual) Basophils % (Manual) Seg Neutrophils # Seg Neutrophils # Man Lymphocytes # (Manual) Monocytes # (Manual) Eosinophils # (Manual) Nucleated RBC % Basophils # (Manual) APTT Heparin Anti-Xa Level ABG pH POC ABG pO2 ABG pO2 ABG HCO3 ABG O2 Saturation ABG Base Excess POC ABG pCO2 ABG Hemoglobin ABG Oxyhemoglobin Oxyhemoglobin Sodium Potassium Chloride Carbon Dioxide BUN Creatinine Glucose POC Glucose 119 H 132 H 128 H Lactic Acid Calcium Phosphorus Magnesium AST ALT Lactate Dehydrogenase CK-MB (CK-2) C-Reactive Protein NT-Pro-B Natriuret Pep Total Protein Albumin Urine WBC (Auto) 12/15/19 12/16/19 12/16/19 23:11 05:30 05:46 WBC RBC Hgb 8.8 L Hct 27.9 L MCHC RDW MCH Lymph % (Auto) [place] % (Auto) [place] # Eos # [place] # (Auto) Eos # (Auto) Seg Neutrophils % Seg Neuts % (Manual) Baso # (Auto) Lymphocytes % (Manual) Monocytes % (Manual) Eosinophils % (Manual) Basophils % (Manual) Seg Neutrophils # Seg Neutrophils # Man Lymphocytes # (Manual) Monocytes # (Manual) Eosinophils # (Manual) Nucleated RBC % Basophils # (Manual) APTT Heparin Anti-Xa Level ABG pH POC ABG pO2 ABG pO2 ABG HCO3 ABG O2 Saturation ABG Base Excess POC ABG pCO2 ABG Hemoglobin ABG Oxyhemoglobin Oxyhemoglobin Sodium Potassium Chloride Carbon Dioxide BUN Creatinine Glucose POC Glucose 150 H 134 H Lactic Acid Calcium Phosphorus Magnesium AST ALT Lactate Dehydrogenase CK-MB (CK-2) C-Reactive Protein NT-Pro-B Natriuret Pep Total Protein Albumin Urine WBC (Auto) 12/16/19 12/16/19 12/16/19 05:46 05:46 11:44 WBC RBC Hgb Hct MCHC RDW MCH Lymph % (Auto) [place] % (Auto) [place] # Eos # [place] # (Auto) Eos # (Auto) Seg Neutrophils % Seg Neuts % (Manual) Baso # (Auto) Lymphocytes % (Manual) Monocytes % (Manual) Eosinophils % (Manual) Basophils % (Manual) Seg Neutrophils # Seg Neutrophils # Man Lymphocytes # (Manual) Monocytes # (Manual) Eosinophils # (Manual) Nucleated RBC % Basophils # (Manual) APTT Heparin Anti-Xa Level 0.20 L ABG pH POC ABG pO2 ABG pO2 ABG HCO3 ABG O2 Saturation ABG Base Excess POC ABG pCO2 ABG Hemoglobin ABG Oxyhemoglobin Oxyhemoglobin Sodium Potassium Chloride Carbon Dioxide 31 H BUN Creatinine 0.5 L Glucose 147 H POC Glucose 164 H Lactic Acid Calcium Phosphorus Magnesium AST ALT Lactate Dehydrogenase CK-MB (CK-2) C-Reactive Protein NT-Pro-B Natriuret Pep Total Protein Albumin Urine WBC (Auto) 12/16/19 12/16/19 12/17/19 17:17 23:49 05:30 WBC 13.9 H RBC 3.27 L Hgb 9.4 L Hct 29.2 L MCHC RDW 16.0 H MCH Lymph % (Auto) [place] % (Auto) 8.8 H [place] # Eos # [place] # (Auto) 1.2 H Eos # (Auto) 0.5 H Seg Neutrophils % 70.5 H Seg Neuts % (Manual) Baso # (Auto) 0.2 H Lymphocytes % (Manual) Monocytes % (Manual) Eosinophils % (Manual) Basophils % (Manual) Seg Neutrophils # 9.8 H Seg Neutrophils # Man Lymphocytes # (Manual) Monocytes # (Manual) Eosinophils # (Manual) Nucleated RBC % Basophils # (Manual) APTT Heparin Anti-Xa Level ABG pH POC ABG pO2 ABG pO2 ABG HCO3 ABG O2 Saturation ABG Base Excess POC ABG pCO2 ABG Hemoglobin ABG Oxyhemoglobin Oxyhemoglobin Sodium Potassium Chloride Carbon Dioxide BUN Creatinine Glucose POC Glucose 162 H 144 H Lactic Acid Calcium Phosphorus Magnesium AST ALT Lactate Dehydrogenase CK-MB (CK-2) C-Reactive Protein NT-Pro-B Natriuret Pep Total Protein Albumin Urine WBC (Auto) 12/17/19 12/17/19 12/17/19 05:30 06:06 11:50 WBC RBC Hgb Hct MCHC RDW MCH Lymph % (Auto) [place] % (Auto) [place] # Eos # [place] # (Auto) Eos # (Auto) Seg Neutrophils % Seg Neuts % (Manual) Baso # (Auto) Lymphocytes % (Manual) Monocytes % (Manual) Eosinophils % (Manual) Basophils % (Manual) Seg Neutrophils # Seg Neutrophils # Man Lymphocytes # (Manual) Monocytes # (Manual) Eosinophils # (Manual) Nucleated RBC % Basophils # (Manual) APTT Heparin Anti-Xa Level ABG pH POC ABG pO2 ABG pO2 ABG HCO3 ABG O2 Saturation ABG Base Excess POC ABG pCO2 ABG Hemoglobin ABG Oxyhemoglobin Oxyhemoglobin Sodium Potassium Chloride 97.4 L Carbon Dioxide 32 H BUN Creatinine 0.5 L Glucose 135 H POC Glucose 151 H 140 H Lactic Acid Calcium Phosphorus Magnesium AST ALT Lactate Dehydrogenase CK-MB (CK-2) C-Reactive Protein NT-Pro-B Natriuret Pep Total Protein Albumin Urine WBC (Auto) 12/17/19 12/17/19 12/18/19 17:50 23:46 05:17 WBC RBC Hgb 8.8 L Hct 28.0 L MCHC RDW MCH Lymph % (Auto) [place] % (Auto) [place] # Eos # [place] # (Auto) Eos # (Auto) Seg Neutrophils % Seg Neuts % (Manual) Baso # (Auto) Lymphocytes % (Manual) Monocytes % (Manual) Eosinophils % (Manual) Basophils % (Manual) Seg Neutrophils # Seg Neutrophils # Man Lymphocytes # (Manual) Monocytes # (Manual) Eosinophils # (Manual) Nucleated RBC % Basophils # (Manual) APTT Heparin Anti-Xa Level ABG pH POC ABG pO2 ABG pO2 ABG HCO3 ABG O2 Saturation ABG Base Excess POC ABG pCO2 ABG Hemoglobin ABG Oxyhemoglobin Oxyhemoglobin Sodium Potassium Chloride Carbon Dioxide BUN Creatinine Glucose POC Glucose 158 H 150 H Lactic Acid Calcium Phosphorus Magnesium AST ALT Lactate Dehydrogenase CK-MB (CK-2) C-Reactive Protein NT-Pro-B Natriuret Pep Total Protein Albumin Urine WBC (Auto) 12/18/19 12/18/19 12/18/19 05:17 05:49 11:12 WBC RBC Hgb Hct MCHC RDW MCH Lymph % (Auto) [place] % (Auto) [place] # Eos # [place] # (Auto) Eos # (Auto) Seg Neutrophils % Seg Neuts % (Manual) Baso # (Auto) Lymphocytes % (Manual) Monocytes % (Manual) Eosinophils % (Manual) Basophils % (Manual) Seg Neutrophils # Seg Neutrophils # Man Lymphocytes # (Manual) Monocytes # (Manual) Eosinophils # (Manual) Nucleated RBC % Basophils # (Manual) APTT Heparin Anti-Xa Level 0.16 L ABG pH POC ABG pO2 ABG pO2 ABG HCO3 ABG O2 Saturation ABG Base Excess POC ABG pCO2 ABG Hemoglobin ABG Oxyhemoglobin Oxyhemoglobin Sodium Potassium Chloride Carbon Dioxide BUN Creatinine Glucose POC Glucose 127 H 191 H Lactic Acid Calcium Phosphorus Magnesium AST ALT Lactate Dehydrogenase CK-MB (CK-2) C-Reactive Protein NT-Pro-B Natriuret Pep Total Protein Albumin Urine WBC (Auto) 09/25/20 09/25/20 09/26/20 17:03 20:16 00:08 WBC RBC Hgb Hct MCHC RDW MCH Lymph % (Auto) [place] % (Auto) [place] # Eos # [place] # (Auto) Eos # (Auto) Seg Neutrophils % Seg Neuts % (Manual) Baso # (Auto) Lymphocytes % (Manual) Monocytes % (Manual) Eosinophils % (Manual) Basophils % (Manual) Seg Neutrophils # Seg Neutrophils # Man Lymphocytes # (Manual) Monocytes # (Manual) Eosinophils # (Manual) Nucleated RBC % Basophils # (Manual) APTT Heparin Anti-Xa Level ABG pH POC ABG pO2 ABG pO2 ABG HCO3 ABG O2 Saturation ABG Base Excess POC ABG pCO2 ABG Hemoglobin ABG Oxyhemoglobin Oxyhemoglobin Sodium Potassium Chloride Carbon Dioxide BUN Creatinine Glucose POC Glucose 133 H 128 H 129 H Lactic Acid Calcium Phosphorus Magnesium AST ALT Lactate Dehydrogenase CK-MB (CK-2) C-Reactive Protein NT-Pro-B Natriuret Pep Total Protein Albumin Urine WBC (Auto) 12/19/19 12/19/19 12/19/19 04:45 04:45 05:35 WBC RBC Hgb Hct MCHC RDW MCH Lymph % (Auto) [place] % (Auto) [place] # Eos # [place] # (Auto) Eos # (Auto) Seg Neutrophils % Seg Neuts % (Manual) Baso # (Auto) Lymphocytes % (Manual) Monocytes % (Manual) Eosinophils % (Manual) Basophils % (Manual) Seg Neutrophils # Seg Neutrophils # Man Lymphocytes # (Manual) Monocytes # (Manual) Eosinophils # (Manual) Nucleated RBC % Basophils # (Manual) APTT Heparin Anti-Xa Level 0.17 L ABG pH POC ABG pO2 ABG pO2 ABG HCO3 ABG O2 Saturation ABG Base Excess POC ABG pCO2 ABG Hemoglobin ABG Oxyhemoglobin Oxyhemoglobin Sodium Potassium Chloride Carbon Dioxide BUN Creatinine Glucose POC Glucose 120 H Lactic Acid Calcium Phosphorus Magnesium AST ALT Lactate Dehydrogenase 228 H CK-MB (CK-2) C-Reactive Protein NT-Pro-B Natriuret Pep Total Protein Albumin Urine WBC (Auto) 12/19/19 12/19/19 12/19/19 09:20 11:32 11:32 WBC 14.6 H RBC 3.08 L Hgb 9.0 L Hct 26.8 L MCHC RDW 15.9 H MCH Lymph % (Auto) [place] % (Auto) [place] # Eos # [place] # (Auto) Eos # (Auto) Seg Neutrophils % Seg Neuts % (Manual) 82.0 H Baso # (Auto) Lymphocytes % (Manual) 10.0 L Monocytes % (Manual) Eosinophils % (Manual) Basophils % (Manual) Seg Neutrophils # Seg Neutrophils # Man 12.0 H Lymphocytes # (Manual) Monocytes # (Manual) 0.9 H Eosinophils # (Manual) Nucleated RBC % 1.0 H Basophils # (Manual) APTT Heparin Anti-Xa Level ABG pH 7.451 H POC ABG pO2 ABG pO2 62.6 L ABG HCO3 33.2 H ABG O2 Saturation 93.8 L ABG Base Excess 8.3 H POC ABG pCO2 ABG Hemoglobin 8.3 L ABG Oxyhemoglobin Oxyhemoglobin 91.9 L Sodium Potassium Chloride 95.0 L Carbon Dioxide 33 H BUN 22 H Creatinine 0.6 L Glucose 150 H POC Glucose Lactic Acid Calcium Phosphorus Magnesium AST ALT Lactate Dehydrogenase CK-MB (CK-2) C-Reactive Protein NT-Pro-B Natriuret Pep Total Protein 6.2 L Albumin 2.4 L Urine WBC (Auto) 12/19/19 12/19/19 12/20/19 11:56 18:17 00:09 WBC RBC Hgb Hct MCHC RDW MCH Lymph % (Auto) [place] % (Auto) [place] # Eos # [place] # (Auto) Eos # (Auto) Seg Neutrophils % Seg Neuts % (Manual) Baso # (Auto) Lymphocytes % (Manual) Monocytes % (Manual) Eosinophils % (Manual) Basophils % (Manual) Seg Neutrophils # Seg Neutrophils # Man Lymphocytes # (Manual) Monocytes # (Manual) Eosinophils # (Manual) Nucleated RBC % Basophils # (Manual) APTT Heparin Anti-Xa Level ABG pH POC ABG pO2 ABG pO2 ABG HCO3 ABG O2 Saturation ABG Base Excess POC ABG pCO2 ABG Hemoglobin ABG Oxyhemoglobin Oxyhemoglobin Sodium Potassium Chloride Carbon Dioxide BUN Creatinine Glucose POC Glucose 156 H 156 H 155 H Lactic Acid Calcium Phosphorus Magnesium AST ALT Lactate Dehydrogenase CK-MB (CK-2) C-Reactive Protein NT-Pro-B Natriuret Pep Total Protein Albumin Urine WBC (Auto) 12/20/19 12/20/19 12/20/19 05:26 06:02 18:17 WBC RBC Hgb Hct MCHC RDW MCH Lymph % (Auto) [place] % (Auto) [place] # Eos # [place] # (Auto) Eos # (Auto) Seg Neutrophils % Seg Neuts % (Manual) Baso # (Auto) Lymphocytes % (Manual) Monocytes % (Manual) Eosinophils % (Manual) Basophils % (Manual) Seg Neutrophils # Seg Neutrophils # Man Lymphocytes # (Manual) Monocytes # (Manual) Eosinophils # (Manual) Nucleated RBC % Basophils # (Manual) APTT Heparin Anti-Xa Level 0.19 L ABG pH POC ABG pO2 ABG pO2 ABG HCO3 ABG O2 Saturation ABG Base Excess POC ABG pCO2 ABG Hemoglobin ABG Oxyhemoglobin Oxyhemoglobin Sodium Potassium Chloride Carbon Dioxide BUN Creatinine Glucose POC Glucose 137 H 128 H Lactic Acid Calcium Phosphorus Magnesium AST ALT Lactate Dehydrogenase CK-MB (CK-2) C-Reactive Protein NT-Pro-B Natriuret Pep Total Protein Albumin Urine WBC (Auto) 12/20/19 12/21/19 12/21/19 23:34 05:31 05:31 WBC 12.7 H RBC 3.09 L Hgb 8.9 L Hct 27.4 L MCHC RDW 15.8 H MCH Lymph % (Auto) 12.1 L [place] % (Auto) 7.8 H [place] # Eos # [place] # (Auto) 1.0 H Eos # (Auto) Seg Neutrophils % 77.1 H Seg Neuts % (Manual) Baso # (Auto) Lymphocytes % (Manual) Monocytes % (Manual) Eosinophils % (Manual) Basophils % (Manual) Seg Neutrophils # 9.8 H Seg Neutrophils # Man Lymphocytes # (Manual) Monocytes # (Manual) Eosinophils # (Manual) Nucleated RBC % Basophils # (Manual) APTT Heparin Anti-Xa Level ABG pH POC ABG pO2 ABG pO2 ABG HCO3 ABG O2 Saturation ABG Base Excess POC ABG pCO2 ABG Hemoglobin ABG Oxyhemoglobin Oxyhemoglobin Sodium Potassium Chloride 96.9 L Carbon Dioxide 37 H BUN 27 H Creatinine 0.7 L Glucose 140 H POC Glucose 145 H Lactic Acid Calcium Phosphorus Magnesium AST ALT Lactate Dehydrogenase CK-MB (CK-2) C-Reactive Protein NT-Pro-B Natriuret Pep Total Protein Albumin Urine WBC (Auto) 12/21/19 12/21/19 12/21/19 05:38 10:13 11:51 WBC RBC Hgb Hct MCHC RDW MCH Lymph % (Auto) [place] % (Auto) [place] # Eos # [place] # (Auto) Eos # (Auto) Seg Neutrophils % Seg Neuts % (Manual) Baso # (Auto) Lymphocytes % (Manual) Monocytes % (Manual) Eosinophils % (Manual) Basophils % (Manual) Seg Neutrophils # Seg Neutrophils # Man Lymphocytes # (Manual) Monocytes # (Manual) Eosinophils # (Manual) Nucleated RBC % Basophils # (Manual) APTT 23.9 L Heparin Anti-Xa Level < 0.10 L ABG pH POC ABG pO2 ABG pO2 ABG HCO3 ABG O2 Saturation ABG Base Excess POC ABG pCO2 ABG Hemoglobin ABG Oxyhemoglobin Oxyhemoglobin Sodium Potassium Chloride Carbon Dioxide BUN Creatinine Glucose POC Glucose 151 H 145 H Lactic Acid Calcium Phosphorus Magnesium AST ALT Lactate Dehydrogenase CK-MB (CK-2) C-Reactive Protein NT-Pro-B Natriuret Pep Total Protein Albumin Urine WBC (Auto) 12/21/19 12/22/19 12/22/19 17:16 00:01 01:33 WBC RBC Hgb Hct MCHC RDW MCH Lymph % (Auto) [place] % (Auto) [place] # Eos # [place] # (Auto) Eos # (Auto) Seg Neutrophils % Seg Neuts % (Manual) Baso # (Auto) Lymphocytes % (Manual) Monocytes % (Manual) Eosinophils % (Manual) Basophils % (Manual) Seg Neutrophils # Seg Neutrophils # Man Lymphocytes # (Manual) Monocytes # (Manual) Eosinophils # (Manual) Nucleated RBC % Basophils # (Manual) APTT Heparin Anti-Xa Level 0.10 L ABG pH POC ABG pO2 ABG pO2 ABG HCO3 ABG O2 Saturation ABG Base Excess POC ABG pCO2 ABG Hemoglobin ABG Oxyhemoglobin Oxyhemoglobin Sodium Potassium Chloride Carbon Dioxide BUN Creatinine Glucose POC Glucose 167 H 179 H Lactic Acid Calcium Phosphorus Magnesium AST ALT Lactate Dehydrogenase CK-MB (CK-2) C-Reactive Protein NT-Pro-B Natriuret Pep Total Protein Albumin Urine WBC (Auto) 12/22/19 12/22/19 12/22/19 03:22 05:10 05:10 WBC 13.8 H RBC 3.20 L Hgb 8.9 L Hct 28.1 L MCHC RDW 15.9 H MCH Lymph % (Auto) [place] % (Auto) [place] # Eos # [place] # (Auto) Eos # (Auto) Seg Neutrophils % Seg Neuts % (Manual) Baso # (Auto) Lymphocytes % (Manual) Monocytes % (Manual) Eosinophils % (Manual) Basophils % (Manual) Seg Neutrophils # Seg Neutrophils # Man Lymphocytes # (Manual) Monocytes # (Manual) Eosinophils # (Manual) Nucleated RBC % Basophils # (Manual) APTT Heparin Anti-Xa Level ABG pH POC ABG pO2 52.3 L ABG pO2 ABG HCO3 ABG O2 Saturation ABG Base Excess POC ABG pCO2 52.9 H ABG Hemoglobin 10.7 L ABG Oxyhemoglobin 84 L Oxyhemoglobin Sodium Potassium Chloride 96.6 L Carbon Dioxide BUN 25 H Creatinine 0.7 L Glucose 129 H POC Glucose Lactic Acid Calcium Phosphorus Magnesium AST ALT Lactate Dehydrogenase CK-MB (CK-2) C-Reactive Protein NT-Pro-B Natriuret Pep Total Protein Albumin Urine WBC (Auto) 12/22/19 12/22/19 12/22/19 05:18 12:32 12:43 WBC RBC Hgb Hct MCHC RDW MCH Lymph % (Auto) [place] % (Auto) [place] # Eos # [place] # (Auto) Eos # (Auto) Seg Neutrophils % Seg Neuts % (Manual) Baso # (Auto) Lymphocytes % (Manual) Monocytes % (Manual) Eosinophils % (Manual) Basophils % (Manual) Seg Neutrophils # Seg Neutrophils # Man Lymphocytes # (Manual) Monocytes # (Manual) Eosinophils # (Manual) Nucleated RBC % Basophils # (Manual) APTT Heparin Anti-Xa Level 0.18 L ABG pH POC ABG pO2 ABG pO2 ABG HCO3 ABG O2 Saturation ABG Base Excess POC ABG pCO2 ABG Hemoglobin ABG Oxyhemoglobin Oxyhemoglobin Sodium Potassium Chloride Carbon Dioxide BUN Creatinine Glucose POC Glucose 131 H 208 H Lactic Acid Calcium Phosphorus Magnesium AST ALT Lactate Dehydrogenase CK-MB (CK-2) C-Reactive Protein NT-Pro-B Natriuret Pep Total Protein Albumin Urine WBC (Auto) 12/22/19 12/22/19 12/23/19 17:44 23:20 03:51 WBC 15.2 H RBC 3.43 L Hgb 9.6 L Hct 30.3 L MCHC RDW 15.9 H MCH Lymph % (Auto) [place] % (Auto) [place] # Eos # [place] # (Auto) Eos # (Auto) Seg Neutrophils % Seg Neuts % (Manual) Baso # (Auto) Lymphocytes % (Manual) Monocytes % (Manual) Eosinophils % (Manual) Basophils % (Manual) Seg Neutrophils # Seg Neutrophils # Man Lymphocytes # (Manual) Monocytes # (Manual) Eosinophils # (Manual) Nucleated RBC % Basophils # (Manual) APTT Heparin Anti-Xa Level ABG pH POC ABG pO2 ABG pO2 ABG HCO3 ABG O2 Saturation ABG Base Excess POC ABG pCO2 ABG Hemoglobin ABG Oxyhemoglobin Oxyhemoglobin Sodium Potassium Chloride Carbon Dioxide BUN Creatinine Glucose POC Glucose 209 H 119 H Lactic Acid Calcium Phosphorus Magnesium AST ALT Lactate Dehydrogenase CK-MB (CK-2) C-Reactive Protein NT-Pro-B Natriuret Pep Total Protein Albumin Urine WBC (Auto) 12/23/19 12/23/19 12/23/19 03:51 05:31 12:09 WBC RBC Hgb Hct MCHC RDW MCH Lymph % (Auto) [place] % (Auto) [place] # Eos # [place] # (Auto) Eos # (Auto) Seg Neutrophils % Seg Neuts % (Manual) Baso # (Auto) Lymphocytes % (Manual) Monocytes % (Manual) Eosinophils % (Manual) Basophils % (Manual) Seg Neutrophils # Seg Neutrophils # Man Lymphocytes # (Manual) Monocytes # (Manual) Eosinophils # (Manual) Nucleated RBC % Basophils # (Manual) APTT Heparin Anti-Xa Level ABG pH POC ABG pO2 ABG pO2 ABG HCO3 ABG O2 Saturation ABG Base Excess POC ABG pCO2 ABG Hemoglobin ABG Oxyhemoglobin Oxyhemoglobin Sodium Potassium Chloride 97.2 L Carbon Dioxide 31 H BUN 23 H Creatinine 0.6 L Glucose 153 H POC Glucose 149 H 144 H Lactic Acid Calcium Phosphorus Magnesium AST ALT Lactate Dehydrogenase CK-MB (CK-2) C-Reactive Protein NT-Pro-B Natriuret Pep Total Protein Albumin Urine WBC (Auto) 12/23/19 12/23/19 12/23/19 15:30 17:49 23:31 WBC RBC Hgb Hct MCHC RDW MCH Lymph % (Auto) [place] % (Auto) [place] # Eos # [place] # (Auto) Eos # (Auto) Seg Neutrophils % Seg Neuts % (Manual) Baso # (Auto) Lymphocytes % (Manual) Monocytes % (Manual) Eosinophils % (Manual) Basophils % (Manual) Seg Neutrophils # Seg Neutrophils # Man Lymphocytes # (Manual) Monocytes # (Manual) Eosinophils # (Manual) Nucleated RBC % Basophils # (Manual) APTT Heparin Anti-Xa Level 0.21 L ABG pH POC ABG pO2 ABG pO2 ABG HCO3 ABG O2 Saturation ABG Base Excess POC ABG pCO2 ABG Hemoglobin ABG Oxyhemoglobin Oxyhemoglobin Sodium Potassium Chloride Carbon Dioxide BUN Creatinine Glucose POC Glucose 192 H 151 H Lactic Acid Calcium Phosphorus Magnesium AST ALT Lactate Dehydrogenase CK-MB (CK-2) C-Reactive Protein NT-Pro-B Natriuret Pep Total Protein Albumin Urine WBC (Auto) 12/24/19 12/24/19 12/24/19 05:34 12:13 16:50 WBC RBC Hgb Hct MCHC RDW MCH Lymph % (Auto) [place] % (Auto) [place] # Eos # [place] # (Auto) Eos # (Auto) Seg Neutrophils % Seg Neuts % (Manual) Baso # (Auto) Lymphocytes % (Manual) Monocytes % (Manual) Eosinophils % (Manual) Basophils % (Manual) Seg Neutrophils # Seg Neutrophils # Man Lymphocytes # (Manual) Monocytes # (Manual) Eosinophils # (Manual) Nucleated RBC % Basophils # (Manual) APTT Heparin Anti-Xa Level 0.16 L ABG pH POC ABG pO2 ABG pO2 ABG HCO3 ABG O2 Saturation ABG Base Excess POC ABG pCO2 ABG Hemoglobin ABG Oxyhemoglobin Oxyhemoglobin Sodium Potassium Chloride Carbon Dioxide BUN Creatinine Glucose POC Glucose 145 H 124 H Lactic Acid Calcium Phosphorus Magnesium AST ALT Lactate Dehydrogenase CK-MB (CK-2) C-Reactive Protein NT-Pro-B Natriuret Pep Total Protein Albumin Urine WBC (Auto) 12/24/19 12/25/19 12/25/19 17:53 00:14 04:18 WBC 12.9 H RBC 3.30 L Hgb 9.1 L Hct 28.8 L MCHC RDW 16.4 H MCH Lymph % (Auto) [place] % (Auto) 7.8 H [place] # Eos # [place] # (Auto) 1.0 H Eos # (Auto) Seg Neutrophils % 75.5 H Seg Neuts % (Manual) Baso # (Auto) Lymphocytes % (Manual) Monocytes % (Manual) Eosinophils % (Manual) Basophils % (Manual) Seg Neutrophils # 9.7 H Seg Neutrophils # Man Lymphocytes # (Manual) Monocytes # (Manual) Eosinophils # (Manual) Nucleated RBC % Basophils # (Manual) APTT Heparin Anti-Xa Level ABG pH POC ABG pO2 ABG pO2 ABG HCO3 ABG O2 Saturation ABG Base Excess POC ABG pCO2 ABG Hemoglobin ABG Oxyhemoglobin Oxyhemoglobin Sodium Potassium Chloride Carbon Dioxide BUN Creatinine Glucose POC Glucose 164 H 148 H Lactic Acid Calcium Phosphorus Magnesium AST ALT Lactate Dehydrogenase CK-MB (CK-2) C-Reactive Protein NT-Pro-B Natriuret Pep Total Protein Albumin Urine WBC (Auto) 12/25/19 12/25/19 12/25/19 04:18 05:38 11:44 WBC RBC Hgb Hct MCHC RDW MCH Lymph % (Auto) [place] % (Auto) [place] # Eos # [place] # (Auto) Eos # (Auto) Seg Neutrophils % Seg Neuts % (Manual) Baso # (Auto) Lymphocytes % (Manual) Monocytes % (Manual) Eosinophils % (Manual) Basophils % (Manual) Seg Neutrophils # Seg Neutrophils # Man Lymphocytes # (Manual) Monocytes # (Manual) Eosinophils # (Manual) Nucleated RBC % Basophils # (Manual) APTT Heparin Anti-Xa Level ABG pH POC ABG pO2 ABG pO2 ABG HCO3 ABG O2 Saturation ABG Base Excess POC ABG pCO2 ABG Hemoglobin ABG Oxyhemoglobin Oxyhemoglobin Sodium Potassium Chloride Carbon Dioxide 33 H BUN 27 H Creatinine 0.6 L Glucose 132 H POC Glucose 152 H 166 H Lactic Acid Calcium Phosphorus Magnesium AST ALT Lactate Dehydrogenase CK-MB (CK-2) C-Reactive Protein NT-Pro-B Natriuret Pep Total Protein Albumin Urine WBC (Auto) 12/25/19 12/26/19 12/26/19 18:29 00:17 00:18 WBC RBC Hgb Hct MCHC RDW MCH Lymph % (Auto) [place] % (Auto) [place] # Eos # [place] # (Auto) Eos # (Auto) Seg Neutrophils % Seg Neuts % (Manual) Baso # (Auto) Lymphocytes % (Manual) Monocytes % (Manual) Eosinophils % (Manual) Basophils % (Manual) Seg Neutrophils # Seg Neutrophils # Man Lymphocytes # (Manual) Monocytes # (Manual) Eosinophils # (Manual) Nucleated RBC % Basophils # (Manual) APTT Heparin Anti-Xa Level ABG pH POC ABG pO2 ABG pO2 ABG HCO3 ABG O2 Saturation ABG Base Excess POC ABG pCO2 ABG Hemoglobin ABG Oxyhemoglobin Oxyhemoglobin Sodium Potassium Chloride 97.8 L Carbon Dioxide BUN 25 H Creatinine 0.6 L Glucose 140 H POC Glucose 194 H 151 H Lactic Acid Calcium Phosphorus Magnesium AST ALT Lactate Dehydrogenase CK-MB (CK-2) C-Reactive Protein NT-Pro-B Natriuret Pep Total Protein Albumin Urine WBC (Auto) 12/26/19 12/26/19 12/26/19 05:36 11:41 17:50 WBC RBC Hgb Hct MCHC RDW MCH Lymph % (Auto) [place] % (Auto) [place] # Eos # [place] # (Auto) Eos # (Auto) Seg Neutrophils % Seg Neuts % (Manual) Baso # (Auto) Lymphocytes % (Manual) Monocytes % (Manual) Eosinophils % (Manual) Basophils % (Manual) Seg Neutrophils # Seg Neutrophils # Man Lymphocytes # (Manual) Monocytes # (Manual) Eosinophils # (Manual) Nucleated RBC % Basophils # (Manual) APTT Heparin Anti-Xa Level ABG pH POC ABG pO2 ABG pO2 ABG HCO3 ABG O2 Saturation ABG Base Excess POC ABG pCO2 ABG Hemoglobin ABG Oxyhemoglobin Oxyhemoglobin Sodium Potassium Chloride Carbon Dioxide BUN Creatinine Glucose POC Glucose 156 H 148 H 139 H Lactic Acid Calcium Phosphorus Magnesium AST ALT Lactate Dehydrogenase CK-MB (CK-2) C-Reactive Protein NT-Pro-B Natriuret Pep Total Protein Albumin Urine WBC (Auto) 12/26/19 12/27/19 12/27/19 23:19 05:34 12:02 WBC RBC Hgb Hct MCHC RDW MCH Lymph % (Auto) [place] % (Auto) [place] # Eos # [place] # (Auto) Eos # (Auto) Seg Neutrophils % Seg Neuts % (Manual) Baso # (Auto) Lymphocytes % (Manual) Monocytes % (Manual) Eosinophils % (Manual) Basophils % (Manual) Seg Neutrophils # Seg Neutrophils # Man Lymphocytes # (Manual) Monocytes # (Manual) Eosinophils # (Manual) Nucleated RBC % Basophils # (Manual) APTT Heparin Anti-Xa Level ABG pH POC ABG pO2 ABG pO2 ABG HCO3 ABG O2 Saturation ABG Base Excess POC ABG pCO2 ABG Hemoglobin ABG Oxyhemoglobin Oxyhemoglobin Sodium Potassium Chloride Carbon Dioxide BUN Creatinine Glucose POC Glucose 161 H 145 H 157 H Lactic Acid Calcium Phosphorus Magnesium AST ALT Lactate Dehydrogenase CK-MB (CK-2) C-Reactive Protein NT-Pro-B Natriuret Pep Total Protein Albumin Urine WBC (Auto) 12/27/19 12/27/19 12/27/19 17:35 20:11 23:00 WBC RBC Hgb Hct MCHC RDW MCH Lymph % (Auto) [place] % (Auto) [place] # Eos # [place] # (Auto) Eos # (Auto) Seg Neutrophils % Seg Neuts % (Manual) Baso # (Auto) Lymphocytes % (Manual) Monocytes % (Manual) Eosinophils % (Manual) Basophils % (Manual) Seg Neutrophils # Seg Neutrophils # Man Lymphocytes # (Manual) Monocytes # (Manual) Eosinophils # (Manual) Nucleated RBC % Basophils # (Manual) APTT Heparin Anti-Xa Level 0.19 L ABG pH POC ABG pO2 ABG pO2 ABG HCO3 ABG O2 Saturation ABG Base Excess POC ABG pCO2 ABG Hemoglobin ABG Oxyhemoglobin Oxyhemoglobin Sodium Potassium Chloride Carbon Dioxide BUN Creatinine Glucose POC Glucose 158 H 155 H Lactic Acid Calcium Phosphorus Magnesium AST ALT Lactate Dehydrogenase CK-MB (CK-2) C-Reactive Protein NT-Pro-B Natriuret Pep Total Protein Albumin Urine WBC (Auto) 12/27/19 12/28/19 12/28/19 23:45 02:41 02:41 WBC 13.0 H RBC 3.48 L Hgb 9.5 L Hct 30.6 L MCHC 31 L RDW 16.6 H MCH 27 L Lymph % (Auto) 13.0 L [place] % (Auto) 8.0 H [place] # Eos # [place] # (Auto) 1.0 H Eos # (Auto) Seg Neutrophils % 76.3 H Seg Neuts % (Manual) Baso # (Auto) Lymphocytes % (Manual) Monocytes % (Manual) Eosinophils % (Manual) Basophils % (Manual) Seg Neutrophils # 9.9 H Seg Neutrophils # Man Lymphocytes # (Manual) Monocytes # (Manual) Eosinophils # (Manual) Nucleated RBC % Basophils # (Manual) APTT Heparin Anti-Xa Level ABG pH POC ABG pO2 ABG pO2 ABG HCO3 ABG O2 Saturation ABG Base Excess POC ABG pCO2 ABG Hemoglobin ABG Oxyhemoglobin Oxyhemoglobin Sodium Potassium Chloride Carbon Dioxide BUN 22 H Creatinine 0.6 L Glucose 101 H POC Glucose 130 H Lactic Acid Calcium Phosphorus Magnesium AST ALT Lactate Dehydrogenase CK-MB (CK-2) C-Reactive Protein NT-Pro-B Natriuret Pep Total Protein Albumin Urine WBC (Auto) 12/28/19 12/28/19 12/28/19 06:00 12:34 18:13 WBC RBC Hgb Hct MCHC RDW MCH Lymph % (Auto) [place] % (Auto) [place] # Eos # [place] # (Auto) Eos # (Auto) Seg Neutrophils % Seg Neuts % (Manual) Baso # (Auto) Lymphocytes % (Manual) Monocytes % (Manual) Eosinophils % (Manual) Basophils % (Manual) Seg Neutrophils # Seg Neutrophils # Man Lymphocytes # (Manual) Monocytes # (Manual) Eosinophils # (Manual) Nucleated RBC % Basophils # (Manual) APTT Heparin Anti-Xa Level ABG pH POC ABG pO2 ABG pO2 ABG HCO3 ABG O2 Saturation ABG Base Excess POC ABG pCO2 ABG Hemoglobin ABG Oxyhemoglobin Oxyhemoglobin Sodium Potassium Chloride Carbon Dioxide BUN Creatinine Glucose POC Glucose 150 H 161 H 128 H Lactic Acid Calcium Phosphorus Magnesium AST ALT Lactate Dehydrogenase CK-MB (CK-2) C-Reactive Protein NT-Pro-B Natriuret Pep Total Protein Albumin Urine WBC (Auto) 12/28/19 12/29/19 12/29/19 23:36 05:21 11:40 WBC RBC Hgb Hct MCHC RDW MCH Lymph % (Auto) [place] % (Auto) [place] # Eos # [place] # (Auto) Eos # (Auto) Seg Neutrophils % Seg Neuts % (Manual) Baso # (Auto) Lymphocytes % (Manual) Monocytes % (Manual) Eosinophils % (Manual) Basophils % (Manual) Seg Neutrophils # Seg Neutrophils # Man Lymphocytes # (Manual) Monocytes # (Manual) Eosinophils # (Manual) Nucleated RBC % Basophils # (Manual) APTT Heparin Anti-Xa Level ABG pH POC ABG pO2 ABG pO2 ABG HCO3 ABG O2 Saturation ABG Base Excess POC ABG pCO2 ABG Hemoglobin ABG Oxyhemoglobin Oxyhemoglobin Sodium Potassium Chloride Carbon Dioxide BUN Creatinine Glucose POC Glucose 137 H 136 H 166 H Lactic Acid Calcium Phosphorus Magnesium AST ALT Lactate Dehydrogenase CK-MB (CK-2) C-Reactive Protein NT-Pro-B Natriuret Pep Total Protein Albumin Urine WBC (Auto) 12/29/19 12/29/19 12/29/19 17:23 19:21 23:38 WBC RBC Hgb Hct MCHC RDW MCH Lymph % (Auto) [place] % (Auto) [place] # Eos # [place] # (Auto) Eos # (Auto) Seg Neutrophils % Seg Neuts % (Manual) Baso # (Auto) Lymphocytes % (Manual) Monocytes % (Manual) Eosinophils % (Manual) Basophils % (Manual) Seg Neutrophils # Seg Neutrophils # Man Lymphocytes # (Manual) Monocytes # (Manual) Eosinophils # (Manual) Nucleated RBC % Basophils # (Manual) APTT Heparin Anti-Xa Level 0.20 L ABG pH POC ABG pO2 ABG pO2 ABG HCO3 ABG O2 Saturation ABG Base Excess POC ABG pCO2 ABG Hemoglobin ABG Oxyhemoglobin Oxyhemoglobin Sodium Potassium Chloride Carbon Dioxide BUN Creatinine Glucose POC Glucose 144 H 141 H Lactic Acid Calcium Phosphorus Magnesium AST ALT Lactate Dehydrogenase CK-MB (CK-2) C-Reactive Protein NT-Pro-B Natriuret Pep Total Protein Albumin Urine WBC (Auto) 12/30/19 12/30/19 12/30/19 03:58 03:58 04:59 WBC RBC 3.54 L Hgb 9.8 L Hct 30.7 L MCHC RDW 16.8 H MCH Lymph % (Auto) [place] % (Auto) [place] # Eos # [place] # (Auto) Eos # (Auto) Seg Neutrophils % Seg Neuts % (Manual) Baso # (Auto) Lymphocytes % (Manual) Monocytes % (Manual) Eosinophils % (Manual) Basophils % (Manual) Seg Neutrophils # Seg Neutrophils # Man Lymphocytes # (Manual) Monocytes # (Manual) Eosinophils # (Manual) Nucleated RBC % Basophils # (Manual) APTT Heparin Anti-Xa Level ABG pH POC ABG pO2 ABG pO2 ABG HCO3 29.8 H ABG O2 Saturation ABG Base Excess 4.8 H POC ABG pCO2 ABG Hemoglobin 11.2 L ABG Oxyhemoglobin Oxyhemoglobin 93.8 L Sodium Potassium Chloride 97.8 L Carbon Dioxide BUN 26 H Creatinine Glucose 168 H POC Glucose Lactic Acid Calcium Phosphorus Magnesium AST ALT Lactate Dehydrogenase CK-MB (CK-2) C-Reactive Protein NT-Pro-B Natriuret Pep Total Protein Albumin Urine WBC (Auto) 12/30/19 12/30/19 12/30/19 05:45 11:34 17:28 WBC RBC Hgb Hct MCHC RDW MCH Lymph % (Auto) [place] % (Auto) [place] # Eos # [place] # (Auto) Eos # (Auto) Seg Neutrophils % Seg Neuts % (Manual) Baso # (Auto) Lymphocytes % (Manual) Monocytes % (Manual) Eosinophils % (Manual) Basophils % (Manual) Seg Neutrophils # Seg Neutrophils # Man Lymphocytes # (Manual) Monocytes # (Manual) Eosinophils # (Manual) Nucleated RBC % Basophils # (Manual) APTT Heparin Anti-Xa Level ABG pH POC ABG pO2 ABG pO2 ABG HCO3 ABG O2 Saturation ABG Base Excess POC ABG pCO2 ABG Hemoglobin ABG Oxyhemoglobin Oxyhemoglobin Sodium Potassium Chloride Carbon Dioxide BUN Creatinine Glucose POC Glucose 163 H 180 H 150 H Lactic Acid Calcium Phosphorus Magnesium AST ALT Lactate Dehydrogenase CK-MB (CK-2) C-Reactive Protein NT-Pro-B Natriuret Pep Total Protein Albumin Urine WBC (Auto) 12/30/19 12/31/19 12/31/19 23:43 04:55 05:07 WBC RBC Hgb Hct MCHC RDW MCH Lymph % (Auto) [place] % (Auto) [place] # Eos # [place] # (Auto) Eos # (Auto) Seg Neutrophils % Seg Neuts % (Manual) Baso # (Auto) Lymphocytes % (Manual) Monocytes % (Manual) Eosinophils % (Manual) Basophils % (Manual) Seg Neutrophils # Seg Neutrophils # Man Lymphocytes # (Manual) Monocytes # (Manual) Eosinophils # (Manual) Nucleated RBC % Basophils # (Manual) APTT Heparin Anti-Xa Level ABG pH POC ABG pO2 ABG pO2 ABG HCO3 ABG O2 Saturation ABG Base Excess POC ABG pCO2 ABG Hemoglobin ABG Oxyhemoglobin Oxyhemoglobin Sodium Potassium 5.6 H D Chloride Carbon Dioxide BUN 33 H Creatinine Glucose 131 H POC Glucose 142 H 134 H Lactic Acid Calcium Phosphorus Magnesium AST ALT Lactate Dehydrogenase CK-MB (CK-2) C-Reactive Protein NT-Pro-B Natriuret Pep Total Protein Albumin Urine WBC (Auto) 12/31/19 12/31/19 12/31/19 11:30 17:19 17:36 WBC RBC Hgb Hct MCHC RDW MCH Lymph % (Auto) [place] % (Auto) [place] # Eos # [place] # (Auto) Eos # (Auto) Seg Neutrophils % Seg Neuts % (Manual) Baso # (Auto) Lymphocytes % (Manual) Monocytes % (Manual) Eosinophils % (Manual) Basophils % (Manual) Seg Neutrophils # Seg Neutrophils # Man Lymphocytes # (Manual) Monocytes # (Manual) Eosinophils # (Manual) Nucleated RBC % Basophils # (Manual) APTT Heparin Anti-Xa Level ABG pH POC ABG pO2 ABG pO2 ABG HCO3 ABG O2 Saturation ABG Base Excess POC ABG pCO2 ABG Hemoglobin ABG Oxyhemoglobin Oxyhemoglobin Sodium Potassium Chloride Carbon Dioxide BUN 35 H Creatinine Glucose 156 H POC Glucose 158 H 181 H Lactic Acid Calcium Phosphorus Magnesium AST ALT Lactate Dehydrogenase CK-MB (CK-2) C-Reactive Protein NT-Pro-B Natriuret Pep Total Protein Albumin Urine WBC (Auto) 12/31/19 12/31/19 12/31/19 18:16 19:41 21:53 WBC RBC Hgb Hct MCHC RDW MCH Lymph % (Auto) [place] % (Auto) [place] # Eos # [place] # (Auto) Eos # (Auto) Seg Neutrophils % Seg Neuts % (Manual) Baso # (Auto) Lymphocytes % (Manual) Monocytes % (Manual) Eosinophils % (Manual) Basophils % (Manual) Seg Neutrophils # Seg Neutrophils # Man Lymphocytes # (Manual) Monocytes # (Manual) Eosinophils # (Manual) Nucleated RBC % Basophils # (Manual) APTT Heparin Anti-Xa Level 0.20 L ABG pH POC ABG pO2 ABG pO2 ABG HCO3 ABG O2 Saturation ABG Base Excess POC ABG pCO2 ABG Hemoglobin ABG Oxyhemoglobin Oxyhemoglobin Sodium Potassium Chloride Carbon Dioxide BUN 34 H Creatinine Glucose 169 H POC Glucose 141 H Lactic Acid Calcium Phosphorus Magnesium AST ALT Lactate Dehydrogenase CK-MB (CK-2) C-Reactive Protein NT-Pro-B Natriuret Pep Total Protein Albumin Urine WBC (Auto) 12/31/19 01/01/20 23:51 05:17 WBC RBC Hgb Hct MCHC RDW MCH Lymph % (Auto) [place] % (Auto) [place] # Eos # [place] # (Auto) Eos # (Auto) Seg Neutrophils % Seg Neuts % (Manual) Baso # (Auto) Lymphocytes % (Manual) Monocytes % (Manual) Eosinophils % (Manual) Basophils % (Manual) Seg Neutrophils # Seg Neutrophils # Man Lymphocytes # (Manual) Monocytes # (Manual) Eosinophils # (Manual) Nucleated RBC % Basophils # (Manual) APTT Heparin Anti-Xa Level ABG pH POC ABG pO2 ABG pO2 ABG HCO3 ABG O2 Saturation ABG Base Excess POC ABG pCO2 ABG Hemoglobin ABG Oxyhemoglobin Oxyhemoglobin Sodium Potassium Chloride Carbon Dioxide BUN Creatinine Glucose POC Glucose 131 H 155 H Lactic Acid Calcium Phosphorus Magnesium AST ALT Lactate Dehydrogenase CK-MB (CK-2) C-Reactive Protein NT-Pro-B Natriuret Pep Total Protein Albumin Urine WBC (Auto) Allied health notes reviewed: nursing
[2020-01-01 11:29] LABS: BUN/Creatinine Ratio 44
[2020-01-01] MEDS ORDERED: ROCURONIUM 50 MG/5 ML INJ IV ONE (11:51)
[2020-01-01] MEDS ORDERED: SODIUM CHLORIDE 0.9% 1000 ML 1,000 ML ONE (12:49)
--- NOTE | 2020-01-01 13:41 | Progress Note ---
Assessment and Plan Assessment and plan: -Acute LLL PE -Acute RLE DVT -Persistent fevers; secondary to sepsis and acute PE/DVT -Severe sepsis; secondary to bilateral pneumonia, persistent fevers -Acute hypoxemic respiratory failure, on vent unable to wean -Bilateral pneumonia, community acquired, -Aspiration Pneumonia -Sustained SVT, on amiodarone -Acute on chronic systolic congestive heart failure -History of cerebrovascular accident. -Tobacco use disorder -Alcohol abuse with DT -Acute chronic obstructive pulmonary disease exacerbation. -Hypertension and hypertensive urgency at presentation. -History of arthritis. -Paroxysmal atrial fibrillation -Leukocytosis with possible sepsis. -Lactic acidosis. -Bleeding from ET tube -Oropharyngeal dysphagia -S/P Knee surgery -History of peptic Ulcer Surgery -DVT prophylaxis COVID-19 test; 11/24/2019; negative 11/26/2019; negative Plan Continue ventilatory support Wean as tolerated as per critical care Completed abx, ID following Aspiration precautions Continue amiodarone and metoprolol for suppression of paroxysmal atrial fibrillation. Anticoagulation on hold for procedure Plan for trach and PEG placement today Low-dose Lasix for now Repeat chest x-ray in a.m. DVT/GI prophy Heparin/Protonix Plan of care reviewed with the patient's nurse Closely monitor the patient and adjust management as needed The high probability of a clinically significant, sudden or life threatening deterioration of the [Respiratory, cardiovascular & neurological] system(s) required my full and direct attention, intervention and personal management. The aggregate critical care time was [33] minutes without overlap. Time includes spent on [x] Data Review and interpretation [x] Patient assessment and monitoring of vital signs [x] Documentation [x] Medication orders and management Brief History Patient is a 64-year-old male with known history of hypertension, COPD, history of coronary artery disease, CHF with ejection fraction of 20 to 25% in August 2018 presenting to the emergency room via EMS complaining of shortness of breath. Patient was found to be hypoxic and in respiratory distress. Patient was placed on CPAP in route to the hospital. Oxygen saturation was said to be 88%. Started on Solu-Medrol, Lasix and magnesium in ED, patient was also found to be lethargic with an oxygen saturation of about 91% on CPAP. He was subsequently intubated. Work-up in the emergency room including chest x-ray reveals bilateral pneumonia. He had an elevated white count of 14 and also had an elevated BNP. Patient admitted to the ICU and placed on empiric IV antibiotics for pneumonia. He tested negative for COVID-19 and placed on isolation precautions. Remains intubated on ventilatory support, sputum cultures positive for Pseudomonas, ID treated with cefepime and Vanco. His hospital course became complicated with acute PE, DVT, paroxysmal atrial fib - placed on heparin drip. Patient difficult to wean off, remains intubated. 11/25: Leukocytosis improving. Continue current management anticipate extubation possible today. 11/26. Still intubated. Failed SBT yesterday. Repeat COVID-19 test is negative. 11/27. CT head ordered for possible neuro status change is negative. More responsive as the day progressed as per RN. Chest xray today shows interval improvement. He is still on antibiotics - will complete regimen today. 11/28: Considering difficult extubation and severe cardiomyopathy, will obtain ca rdiology consult. Aspiration precautions, tube feeds held, continue antibiotics. 11/29: Still with intermittent fever but improving imaging, continue diuresis. 11/30; Extremely agitated when placed on PSV- SVT, hypertension. Patiet acknowledged that he drinks. IV Ativan given, CIWA protocol initiated. 12 lead ordered showed SVT, one dose of amiodarone ordered. continue to follow up cardiology recommendation 12/01: Patient remains on mechanical ventilation, getting SBT trial. Remains in SVT, started on amiodarone drip by cardiology. 12/02; patient is on mechanical ventilation and on spontaneous breathing trial. Cardiology started the patient on PO amiodarone. Patient is on cefepime. 12/03: patient is on mechanical ventilation. Cardiology started the patient on PO amiodarone for SVT. Patient is on cefepime, no fever overnight. 12/04: Patient is sedated and on mechanical ventilation. Patient had fever yesterday afternoon 102.3, ID changed his cefepime to meropenem. Heart rate is controlled, cardiology is following. Patient has paroxysmal atrial fibrillation and on amiodarone and metoprolol, subcu heparin for anticoagulation and will need oral anticoagulation once stable. 12/05: Sputum cultures positive for Pseudomonas, ID following 12/06; patient is febrile T-max 24 hours 102 F ,ID change antibiotics to cefepime and Vancomycin 12/07: resumed care. Na 149 today, start on 1/2 NS. cont current care 12/08: remains in a stable sinus rhythm and stable blood pressure, continue supportive care. wean off vent as tolerated. persistent fever - ordered CTA chest 12/09: noted bloody discharges from ET tube last night. CTA and LE venous doppler positive for acute PE and DVT. resume heparin drip, consult vascular for possible EKOS/ IVC filter. monitor h/h. cont SBT trial, wean off vent as tolerated. called but no answer 12/10: cont heparin drip for acute PE and DVT, follow vascular recommendation. monitor h/h, wean off vent as tolerated 12/11: o/n had bleeding from ET tube, cont to monitor h/h. vascular recommending medical Mx. called ; Nicolle Araiza [phone]. 12/12: H&H remained stable, patient on heparin drip. Discussed with yesterday. Discussed with critical care attending. Patient not tolerating SBT trial. Continue to wean off from vent as tolerated, follow clinically. Tolerating tube feeding 12/13: Continue heparin drip, wean off from vent as tolerated. Discussed with pulmonary attending if no improvement by the end of 3 weeks of intubation patie nt may need trach and PEG. Continue to provide supportive care, follow CBC and BMP. 12/14: Stop cefepime today, wean off from vent as tolerated. cont Heparin infusion, while monitoring for bleeding 12/15: Patient is not tolerating SBT trial, becoming apnic on CPAP. May need to place on trach and PEG. Continue heparin drip, monitor off antibiotics 12/16. Still maintained on vent. May need PEG and trach as her has been failed SBTs 12/17. Had low UO overnight. Started on tamsulosin. May need PEG and trach - defer to pulm. 12/18-. Plan for US thoracentesis to help with weaning. Remains on heparin drip for VTE. 12/20. Discussed with spouse today. He will get thoracentesis today. INR/PTT ordered. Heparin drip held. 12/21: planned for trach and PEG, cont supportive care, thoracentesis cancelled 12/22: cont supportive care, wean off from vent, daily SBT 12/23: tolerating SBT, possible extubation soon. cont supportive care 12/24: wean off vent as tolerated, daily SBT, follow clinically 12/25; cont to monitor, wean off vent as tolerated 12/26: Continue to monitor wean off vent as tolerated patient is tolerating SBT trial but not ready to wean off. 12/27: need trach and PEG, will f/u with GS, cont supportive care 12/28: pending trach/PEG 12/29: plan for trach and PEG on Saturday 12/30: Plan for trach and PEG. Temp 101F. Blood cultures, urinalysis and chest xray ordered. 12/31. Had afib with RVR overnight. Metoprolol dose has been increased. He is still on amiodarone. Plan for PEG tube placement today. Repeat chest x-ray shows worsening infiltrates. Started on the Lasix. Monitor fever now. Blood cultures negative so far. Urinalysis pending History Interval history: No change in medical condition. Still remains intubated. COVID-19 test negative. Plan for trach and PEG today. Had afib with RVR last night. Hospitalist Physical - Constitutional Vitals: Temp Pulse Resp BP Pulse Ox 100.4 F H 103 H 10 L 142/91 95 01/01/20 12:00 01/01/20 10:04 01/01/20 07:47 01/01/20 10:04 01/01/20 10:04 General appearance: Present: well-nourished, other (Intubated. OG tube in place) - EENT Eyes: Present: PERRL - Neck Neck: Present: supple - Respiratory Respiratory: bilateral: rales - Cardiovascular Heart Sounds: Present: S1 & S2 - Extremities Extremity abnormal: edema - Abdominal General gastrointestinal: soft, non-tender, non-distended, normal bowel sounds - Neurologic Neurologic: other (Sedated and intubated) HEART Score - HEART Score Troponin: Troponin T < 0.010 ng/mL (0.00-0.029) 11/24/19 02:53 Results - Labs CBC & Chem 7: 12/30/19 03:58 01/01/20 10:40 Labs: Laboratory Last Values WBC 10.5 K/mm3 (4.5-11.0) 12/30/19 03:58 RBC 3.54 M/mm3 (3.65-5.03) L 12/30/19 03:58 Hgb 9.8 gm/dl (11.8-15.2) L 12/30/19 03:58 Hct 30.7 % (35.5-45.6) L 12/30/19 03:58 MCV 87 fl (84-94) 12/30/19 03:58 MCH 28 pg (28-32) 12/30/19 03:58 MCHC 32 % (32-34) 12/30/19 03:58 RDW 16.8 % (13.2-15.2) H 12/30/19 03:58 Plt Count 269 K/mm3 (140-440) 12/30/19 03:58 Lymph % (Auto) 13.0 % (13.4-35.0) L 12/28/19 02:41 [place] % (Auto) 8.0 % (0.0-7.3) H 12/28/19 02:41 Eos % (Auto) 1.8 % (0.0-4.3) 12/28/19 02:41 Baso % (Auto) 0.9 % (0.0-1.8) 12/28/19 02:41 Lymph # (Auto) 1.7 K/mm3 (1.2-5.4) 12/28/19 02:41 [place] # (Auto) 1.0 K/mm3 (0.0-0.8) H 12/28/19 02:41 Eos # (Auto) 0.2 K/mm3 (0.0-0.4) 12/28/19 02:41 Baso # (Auto) 0.1 K/mm3 (0.0-0.1) 12/28/19 02:41 Add Manual Diff Complete 12/19/19 11:32 Total Counted 100 12/19/19 11:32 Seg Neutrophils % 76.3 % (40.0-70.0) H 12/28/19 02:41 Seg Neuts % (Manual) 82.0 % (40.0-70.0) H 12/19/19 11:32 Band Neutrophils % 0 % 12/19/19 11:32 Lymphocytes % (Manual) 10.0 % (13.4-35.0) L 12/19/19 11:32 Reactive Lymphs % (Man) 0 % 12/19/19 11:32 Monocytes % (Manual) 6.0 % (0.0-7.3) 12/19/19 11:32 Eosinophils % (Manual) 2.0 % (0.0-4.3) 12/19/19 11:32 Basophils % (Manual) 0 % (0.0-1.8) 12/19/19 11:32 Metamyelocytes % 0 % 12/19/19 11:32 Myelocytes % 0 % 12/19/19 11:32 Promyelocytes % 0 % 12/19/19 11:32 Blast Cells % 0 % 12/19/19 11:32 Nucleated RBC % 1.0 % (0.0-0.9) H 12/19/19 11:32 Seg Neutrophils # 9.9 K/mm3 (1.8-7.7) H 12/28/19 02:41 Seg Neutrophils # Man 12.0 K/mm3 (1.8-7.7) H 12/19/19 11:32 Band Neutrophils # 0.0 K/mm3 12/19/19 11:32 Lymphocytes # (Manual) 1.5 K/mm3 (1.2-5.4) 12/19/19 11:32 Abs React Lymphs (Man) 0.0 K/mm3 12/19/19 11:32 Monocytes # (Manual) 0.9 K/mm3 (0.0-0.8) H 12/19/19 11:32 Eosinophils # (Manual) 0.3 K/mm3 (0.0-0.4) 12/19/19 11:32 Basophils # (Manual) 0.0 K/mm3 (0.0-0.1) 12/19/19 11:32 Metamyelocytes # 0.0 K/mm3 12/19/19 11:32 Myelocytes # 0.0 K/mm3 12/19/19 11:32 Promyelocytes # 0.0 K/mm3 12/19/19 11:32 Blast Cells # 0.0 K/mm3 12/19/19 11:32 WBC Morphology Not Reportable 12/19/19 11:32 Hypersegmented Neuts Not Reportable 12/19/19 11:32 Hyposegmented Neuts Not Reportable 12/19/19 11:32 Hypogranular Neuts Not Reportable 12/19/19 11:32 Smudge Cells Not Reportable 12/19/19 11:32 Toxic Granulation Not Reportable 12/19/19 11:32 Toxic Vacuolation Not Reportable 12/19/19 11:32 Dohle Bodies Not Reportable 12/19/19 11:32 Pelger-Huet Anomaly Not Reportable 12/19/19 11:32 Hector Rods Not Reportable 12/19/19 11:32 Platelet Estimate Consistent w auto 12/19/19 11:32 Clumped Platelets Not Reportable 12/19/19 11:32 Plt Clumps, EDTA Not Reportable 12/19/19 11:32 Large Platelets Not Reportable 12/19/19 11:32 Giant Platelets Not Reportable 12/19/19 11:32 Platelet Satelliting Not Reportable 12/19/19 11:32 Plt Morphology Comment Not Reportable 12/19/19 11:32 RBC Morphology Not Reportable 12/19/19 11:32 Dimorphic RBCs Not Reportable 12/19/19 11:32 Polychromasia Not Reportable 12/19/19 11:32 Hypochromasia Few 12/19/19 11:32 Poikilocytosis Not Reportable 12/19/19 11:32 Anisocytosis 1+ 12/19/19 11:32 Microcytosis Few 12/19/19 11:32 Macrocytosis Few 12/19/19 11:32 Spherocytes Not Reportable 12/19/19 11:32 Pappenheimer Bodies Not Reportable 12/19/19 11:32 Sickle Cells Not Reportable 12/19/19 11:32 Target Cells Not Reportable 12/19/19 11:32 Tear Drop Cells Not Reportable 12/19/19 11:32 Ovalocytes Not Reportable 12/19/19 11:32 Helmet Cells Not Reportable 12/19/19 11:32 Gottlieb-Rainelle Bodies Not Reportable 12/19/19 11:32 [place] Rings Not Reportable 12/19/19 11:32 [employer] Cells Not Reportable 12/19/19 11:32 Bite Cells Not Reportable 12/19/19 11:32 Crenated Cell Not Reportable 12/19/19 11:32 Elliptocytes Not Reportable 12/19/19 11:32 Acanthocytes (Spur) Not Reportable 12/19/19 11:32 Rouleaux Not Reportable 12/19/19 11:32 Hemoglobin C Crystals Not Reportable 12/19/19 11:32 Schistocytes Not Reportable 12/19/19 11:32 Malaria parasites Not Reportable 12/19/19 11:32 Clifford Bodies Not Reportable 12/19/19 11:32 Hem Pathologist Commnt No 12/19/19 11:32 PT 13.8 Sec. (12.2-14.9) 12/21/19 10:13 INR 1.05 (0.87-1.13) 12/21/19 10:13 APTT 23.9 Sec. (24.2-36.6) L 12/21/19 10:13 Heparin Anti-Xa Level 0.20 U.I./ml (0.3-0.7) L 12/31/19 19:41 ABG pH 7.439 pH Units (7.350-7.450) 12/30/19 04:59 POC ABG pCO2 52.9 mmHg (32.0-48.0) H 12/22/19 03:22 ABG pCO2 45.0 mm Hg 12/30/19 04:59 POC ABG pO2 52.3 mmHg (83-108) L 12/22/19 03:22 ABG pO2 89.3 mm Hg (80.0-90.0) 12/30/19 04:59 POC ABG HCO3 33.4 12/22/19 03:22 ABG HCO3 29.8 mmol/L (20.0-26.0) H 12/30/19 04:59 ABG O2 Saturation 96.3 % (95.0-99.0) 12/30/19 04:59 ABG O2 Content 20.6 (0.0-44) 12/30/19 04:59 POC ABG Base Excess 7.7 12/22/19 03:22 ABG Base Excess 4.8 mmol/L (-2.0-3.0) H 12/30/19 04:59 ABG Hemoglobin 11.2 gm/dl (14.0-18.0) L 12/30/19 04:59 ABG Oxyhemoglobin 84 (94-98) L 12/22/19 03:22 ABG Carboxyhemoglobin 2.2 % (0.0-5.0) 12/30/19 04:59 ABG Methemoglobin 0.4 % (0.0-1.5) 12/30/19 04:59 Oxyhemoglobin 93.8 % (95.0-99.0) L 12/30/19 04:59 Carboxyhemoglobin 0.7 (0.5-1.5) 12/22/19 03:22 FiO2 40 % 12/30/19 04:59 Sodium 145 mmol/L (137-145) 01/01/20 10:40 Potassium 5.0 mmol/L (3.6-5.0) 01/01/20 10:40 Chloride 100.7 mmol/L (98-107) 01/01/20 10:40 Carbon Dioxide 27 mmol/L (22-30) 01/01/20 10:40 Anion Gap 22 mmol/L 01/01/20 10:40 BUN 31 mg/dL (9-20) H 01/01/20 10:40 Creatinine 0.7 mg/dL (0.8-1.3) L 01/01/20 10:40 Estimated GFR > 60 ml/min 01/01/20 10:40 BUN/Creatinine Ratio 44 % 01/01/20 10:40 Glucose 137 mg/dL (75-100) H 01/01/20 10:40 POC Glucose 128 (70-105) H 01/01/20 12:26 Lactic Acid 2.50 mmol/L (0.7-2.0) H* 11/24/19 10:37 Phosphorus 2.60 mg/dL (2.5-4.5) 12/06/19 05:24 Magnesium 2.60 mg/dL (1.7-2.3) H 12/07/19 12:41 Calcium 9.1 mg/dL (8.4-10.2) 01/01/20 10:40 Ferritin 84.4 ng/mL (30.0-300.0) 11/24/19 04:53 Direct Bilirubin < 0.2 mg/dL (0-0.2) 12/08/19 03:55 Indirect Bilirubin 0.2 mg/dL 12/08/19 03:55 Total Bilirubin 0.80 mg/dL (0.1-1.2) 01/01/20 10:40 Total Creatine Kinase 141 units/L (55-170) 11/24/19 02:53 CK-MB (CK-2) 4.3 ng/mL (0.0-4.0) H 11/24/19 02:53 AST 73 units/L (5-40) H 01/01/20 10:40 ALT 97 units/L (7-56) H 01/01/20 10:40 CK-MB (CK-2) Rel Index 3.0 (0-4) 11/24/19 02:53 Alkaline Phosphatase 71 units/L (35-129) 01/01/20 10:40 Troponin T < 0.010 ng/mL (0.00-0.029) 11/24/19 02:53 C-Reactive Protein 8.50 mg/dL (0.00-1.30) H 12/01/19 12:16 Lactate Dehydrogenase 228 units/L (91-180) H 12/19/19 04:45 NT-Pro-B Natriuret Pep 3866 pg/mL (0-900) H 01/01/20 10:40 Total Protein 7.0 g/dL (6.3-8.2) 01/01/20 10:40 Albumin 2.8 g/dL (3.9-5) L 01/01/20 10:40 Albumin/Globulin Ratio 0.7 % 01/01/20 10:40 Procalcitonin 0.57 ng/mL (<0.15) 12/25/19 04:18 Urine Color Cecy (Yellow) 12/31/19 18:04 Urine Turbidity Clear (Clear) 12/31/19 18:04 Urine pH 5.0 (5.0-7.0) 12/31/19 18:04 Ur Specific [place] 1.023 (1.003-1.030) 12/31/19 18:04 Urine Protein <15 mg/dl mg/dL (Negative) 12/31/19 18:04 Urine Glucose (UA) Neg mg/dL (Negative) 12/31/19 18:04 Urine Ketones Neg mg/dL (Negative) 12/31/19 18:04 Urine Blood Neg (Negative) 12/31/19 18:04 Urine Bacteria (Auto) 1+ /HPF (Negative) 12/03/19 06:03 Urine Nitrite Neg (Negative) 12/31/19 18:04 Urine Bilirubin Neg (Negative) 12/31/19 18:04 Urine Urobilinogen 4.0 mg/dL (<2.0) 12/31/19 18:04 Ur Leukocyte Esterase Neg (Negative) 12/31/19 18:04 Urine WBC (Auto) 2.0 /HPF (0.0-6.0) 12/31/19 18:04 Urine RBC (Auto) 3.0 /HPF (0.0-6.0) 12/31/19 18:04 U Epithel Cells (Auto) 2.0 /HPF (0-13.0) 12/31/19 18:04 Urine Mucus 1+ /HPF 12/31/19 18:04 Vancomycin Trough 14.2 ug/mL (5.0-20.0) 12/13/19 15:01 Coronavirus (PCR) Negative (Negative) 12/29/19 10:07 Microbiology: Microbiology 12/31/19 18:16 Peripheral/Venous Blood Culture - Preliminary Culture in Progress 12/31/19 18:16 Peripheral/Venous Blood Culture - Preliminary Culture in Progress - Diagnostic Impressions Diagnostic Impressions: Echocardiogram 11/29/19 07:37 Transthoracic Echocardiogram Indication: CHF BP: 116/72 HR: 33 Conclusions *The study is technically limited due to poor acoustic windows. *Global left ventricular systolic function is normal. *The estimated ejection fraction is 50-55%. *Mild concentric left ventricular hypertrophy is observed. *There is trace of mitral regurgitation. *There is mild tricuspid regurgitation. Findings Procedure Info: The study quality is poor. The study is technically limited due to poor acoustic windows. The study is technically limited due to patient body habitus. Left Ventricle: The left ventricular chamber size is normal. Mild concentric left ventricular hypertrophy is observed. Global left ventricular systolic function is normal. The estimated ejection fraction is 50-55%. Left Atrium: The left atrial chamber size is normal. Right Ventricle: The right ventricular cavity size is normal. Right Atrium: The right atrial cavity size is normal. Aortic Valve: The aortic valve leaflets are moderately thickened. There is trace of aortic regurgitation. There is no evidence of aortic stenosis. Mitral Valve: The mitral valve leaflets are mildly thickened. There is trace of mitral regurgitation. There is no evidence of mitral stenosis. Tricuspid Valve: There is mild tricuspid regurgitation. No pulmonary hypertension is noted. Pulmonic Valve: There is trace pulmonic regurgitation. Pericardium: There is no pericardial effusion. Aorta: There is no dilatation of the aortic root. Venous: The inferior vena cava appears normal in size. Contrast: Definity was used to optimize study. Intravenous contrast was used to enhance endocardial border definition. Measurements Chambers 2D Name Value Normal Range Ao root diameter (2D) 3.4 cm (2 - 3.7) Aortic Valve Name Value Normal Range AV Vmax 0.98 m/sec - AV VTI 16.76 cm - AV peak gradient 3.83 mmHg - AV mean gradient 2.57 mmHg - LVOT diameter 3.11 cm - LVOT Vmax 0.68 m/sec - LVOT VTI 11.52 cm - LVOT peak gradient 1.84 mmHg - LVOT mean gradient 1.27 mmHg - SV LVOT 87.31 ml - MALOU (continuity Vmax) 5.24 cm2 - MALOU (continuity VTI) 5.21 cm2 - Tricuspid Valve Name Value Normal Range IVC diameter 2.24 cm (1.2 - 2.3) Hoffman/IV: Voiding Method Incontinent IV Catheter Type [Right Upper INT / Saline Lock arm] IV Catheter Type [Left Upper Mid-line arm] IV Catheter Type [Left Forearm Peripheral IV ] IV Catheter Type [Left Hand] INT / Saline Lock IV Catheter Type [Left Wrist] INT / Saline Lock IV Catheter Type [Right INT / Saline Lock Antecubital] Active Medications - Current Medications Current Medications: Generic Name Dose Route Start Last Admin Trade Name Freq PRN Reason Stop Dose Admin Acetaminophen 650 mg 12/31/19 11:43 12/31/19 12:43 Tylenol FEEDTUBE 650 mg Q6H PRN Administration Pain, Mild (1-3) Amiodarone HCl 200 mg 12/04/19 14:00 01/01/20 08:47 Cordarone PO 200 mg BID CAR Administration Lipase/Protease/Amylase 1 each 12/08/19 12:07 Pancreaztao Betancourt 10,500 Unit FEEDTUBE PRN PRN For Clogged Feeding Tube Docusate Sodium 100 mg 12/02/19 22:00 12/31/19 21:42 Colace FEEDTUBE 100 mg BID CAR Administration Famotidine 20 mg 11/25/19 10:00 12/31/19 21:43 Pepcid PO 20 mg BID CAR Administration Fentanyl 50 mcg 12/30/19 10:46 Sublimaze IV Q10MIN PRN ANALGESIA Furosemide 40 mg 01/01/20 10:00 01/01/20 10:14 Lasix IV 40 mg BID CAR Administration Haloperidol Lactate 5 mg 12/25/19 10:00 12/30/19 08:03 Haldol IV 5 mg Q6H PRN Administration Unrespon. to mult. doses BZD's Heparin Sodium/Sodium Chloride 25,000 unit in 500 mls @ 30 mls/hr 12/10/19 19:00 01/01/20 03:33 Heparin/ 0.45% Nacl-25,000 Unit/500 Ml IV 1,500 units/hr TITR CAR 30 mls/hr Administration Protocol 1,500 UNITS/HR Fentanyl Citrate 2,000 mcg in 100 mls @ 5.67 mls/hr 12/30/19 11:00 01/01/20 03:32 Fentanyl Drip Premix IV 2 mcg/kg/hr TITR CAR 11.34 mls/hr Administration Protocol 1 MCG/KG/HR Insulin Human Lispro 0 unit 12/05/19 19:00 01/01/20 08:11 Humalog SUB-Q Not Given Q6H [facility] Protocol Lorazepam 2 mg 12/25/19 10:00 12/30/19 19:30 Ativan IV 2 mg Q6H PRN Administration AGITATION Metoprolol Tartrate 50 mg 12/07/19 14:00 01/01/20 06:55 Metoprolol PO 50 mg Q8HR CAR Administration Polyethylene Glycol 17 gm 12/04/19 22:00 12/31/19 21:42 Miralax 3350 PO 17 gm QHS CAR Administration Quetiapine Fumarate 200 mg 12/24/19 13:00 01/01/20 10:14 Seroquel PO 200 mg BID CAR Administration Simple Syrup 15 ml 12/08/19 12:07 Simple Syrup FEEDTUBE PRN PRN Hypoglycemia Simple Syrup 30 ml 12/08/19 12:07 Simple Syrup FEEDTUBE PRN PRN Hypoglycemia Sodium Bicarbonate 325 mg 12/08/19 12:07 Sodium Bicarbonate FEEDTUBE PRN PRN For Clogged Feeding Tube Sodium Chloride 10 ml 11/24/19 10:00 12/31/19 09:45 Sodium Chloride Flush Syringe 10 Ml IV 10 ml BID CAR Administration Tamsulosin HCl 0.8 mg 12/20/19 22:00 12/31/19 21:42 Flomax PO 0.8 mg QHS CAR Administration Nutrition/Malnutrition Assess - Dietary Evaluation Nutrition/Malnutrition Findings: Nutrition Notes Start: 11/24/19 12:22 Freq: Status: Active Protocol: Document 12/30/19 11:51 ARISTIDES (Rec: 12/30/19 11:56 [email or web address] [id number]) Co-Sign 12/30/19 11:51 MK Nutrition Notes Initial or Follow up Reassessment Current Diagnosis Coronary Artery Disease,Heart Failure,Respiratory Failure, Stroke,Hyperlipidemia Current Diet TF Vital HP 65ml/hr Labs/Tests BUN 26 BG 128 Pertinent Medications Insulin Height 6 ft 2 in Weight 116.7 kg [place] Body Weight (kg) 86.36 BMI 33.0 Weight change and time frame Wt change noted Weight Status Obese Subjective/Other Information F/U for stable TF. Pt tolerating TF at 65 ml/hr. Percent of energy/protein needs met: 100%/79% Burn Absent Trauma Absent Current % PO Negligible Minimum of two criteria No Fluid Accumulation Mild (non-severe) #1 Nutrition Diagnosis Inadequate oral intake Diagnosis Progress(for reassessment Continues documentation) Is patient on ventilator? Yes Is Patient Ambulatory and/or Out of Bed No REE-([place]-confined to bed) 2442.744 Kcal/Kg value to use for calculation 13 Approximate Energy Requirements Using 1517 kcal/Kg Calculation Used for Recommendations Kcal/kg Additional Notes Protein needs 173g (at least 2 g/kg IBW) Fluid needs 1.5-1.9L Nutrition Intervention Change Diet Order: Continue TF Nutrition Support: Vital HP at 65ml/hr Flush 100ml q4h Hypernatermia 250ml q4h Kcal 1,560 Protein (gm) 137 Fluid (mL) 1,304 Goal #1 TF meets at least 80% of energy and protein needs. Goal #2 TF tolerance Anticipated Discharge Needs: unable to determine at this time Follow-Up By: 01/06/20 Additional Comments F/U for stable TF
--- NOTE | 2020-01-01 13:53 | Operative Report ---
Operative Report Operative Report: Date of surgery: 01/01/2020 Preoperative diagnosis: Vent dependence Postoperative diagnosis: Same as above Procedure: Percutaneous tracheostomy, PEG tube placement Surgeon: Maribeth Akbar DO Anesthesia: Geta, local Findings: Good placement of tracheostomy as visualized by fiberoptic bronchoscopy. PEG tube bumper at 4 cm at the skin EBL: LESS than 5 cc Specimen: None Complications: None Disposition: Stable to ICU HPI and indication: Patient is a 64-year-old male with hx of HTN, COPD, CHF, CAD who presented to ER on 11/23 with increasing SOB and was found to be hypoxic. Pt has remained on the vent since admission and is unable to be weaned. He is being treated for b/l PNA. Surgery is consulted for trach/peg placement. COVID testing was negative. Patient recently diagnosed with small PE and LE DVT and is on hepgtt. The procedure indication along with the risks benefits and alternatives were discussed with the patient's Bunny Araiza and all questions answered. Consent was obtained for percutaneous tracheostomy, possible open, PEG tube placement, fiberoptic bronchoscopy. The tube feeds were held at midnight the night before surgery and the heparin drip held greater than 6 hours prior to surgery. Procedure in detail: The patient was identified in the ICU and brought down to the operating room and positioned in supine position in the hospital bed. Consent was verified on the chart timeout was performed. Anesthesia was administered. A shoulder roll was placed, with the patient's neck mildly hyperextended. The neck was prepped and draped in usual sterile fashion. Anesthesia provider performed fiberoptic bronchoscopy throughout the entire procedure. The fiberoptic bronchoscope was inserted through the endotracheal tube via the adapter and the trachea examined. The trachea was unremarkable and the 8 ET tube was approximately 4 cm from hi at 26 cm at the lip. 1% lidocaine was infiltrated into the skin and subcutaneous tissue approximately 2 fingerbreadths above the sternal notch. A 2 cm incision was made in a horizontal fashion using a 15 blade. Using a hemostat the soft tissues were bluntly dissected until the trachea was encountered. The ET tube was then pulled back slowly to approximately 16 cm. Using the introducer needle, the trachea was entered under direct visualization. The wire was passed down the trachea towards the hi. Introducer needle was then removed. The trachea was then serially dilated, after which a 8 Maori Shiley tracheostomy tube was inserted. The balloon was inflated and patient placed back on ventilator. There was end-tidal CO2 detected and tidal volumes assessed which were satisfactory. The bronchoscope was then placed through the tracheostomy and showed good positioning of the tracheostomy approximately 4 cm above the hi and no bleeding. No significant mucus was identified in the trachea or upper airways. A drain sponge was placed between the skin and tracheostomy. The tracheostomy flanges were sutured to the skin using 2-0 Prolene suture. The tracheostomy was secured to the patient's neck using a tracheostomy strap. The ET tube was removed. Next we turned our attention to performing the PEG tube. A mouthguard was placed through which a flexible endoscope was passed through the mouth and into the esophagus. The NG tube was visualized along the way. The endoscope was advanced through the esophagus and into the stomach. The stomach was unremarkable. The stomach was insufflated and transillumination performed. An area of transillumination was clearly visualized in the left upper quadrant, slightly to the left of the midline scar and marked. The skin was then prepped and draped in usual sterile fashion. Local anesthetic was infiltrated to the skin at the intended incision site. A small incision was made in the skin using an 11 blade. An introducer needle/breakaway sheath was inserted directly through this incision into the stomach under direct endoscopic visualization. The needle was removed. The wire was passed and grasped with a snare by the certified first assistant and the wire pulled along with the endoscope through the mouth. The PEG tube was assembled onto the wire and pulled back through the mouth and down into the stomach. The outer bumper was at 4 cm at the skin. The PEG tube was cut to size and assembled in the usual fashion. A drain sponge was applied between the skin and the PEG tube and the tube secured with tape. I then reinserted the endoscope into the mouth and down into the stomach. The PEG tube inner bumper was seen to lay flush against the gastric mucosa without tension. There is no bleeding. The pylorus was entered and the first portion of the duodenum was unremarkable. The scope was then withdrawn back into the stomach and retroflexed. The entirety of the stomach was unremarkable. The NG tube was withdrawn. The stomach was then desufflated and the endoscope withdrawn. The patient tolerated the procedures well. All sharps were disposed of appropriately. Postop chest x-ray is pending. The patient was taken back to the ICU in stable condition. Patient's Bunny Araiza updated.
[2020-01-01] MEDS: DOCUSATE SODIUM 100 MG/10 ML ORAL LIQD FEEDTUBE SCH ×2 (14:25→23:51)
[2020-01-01] MEDS: FAMOTIDINE 20 MG TAB PO SCH ×2 (14:26→21:39)
--- NOTE | 2020-01-01 14:58 | XRay Report ---
CHEST 1 VIEW 01/01/2020 1:47 PM INDICATION / CLINICAL INFORMATION: s/p tracheostomy. COMPARISON: Chest one view from 12/31/2019 FINDINGS: SUPPORT DEVICES: The ET tube has been removed and a tracheostomy tube has been placed that is in good position. The esophagogastric tube has also been removed. HEART / MEDIASTINUM: Stable. LUNGS / PLEURA: Increased left airspace opacities with slightly improved aeration of the right lung. No large pleural effusion. No pneumothorax. ADDITIONAL FINDINGS: No significant additional findings. IMPRESSION: 1. Increased left airspace opacities with slightly improved aeration of the right lung. 2. Satisfactory positioning of the tracheostomy tube. Signer Name: Rod Pina MD Signed: 01/01/2020 2:53 PM Workstation Name: [id number]
--- NOTE | 2020-01-01 15:29 | Post Anesthesia Evaluation ---
- Post Anesthesia Evaluation Patient Participated: No Airway Patent: Yes Stable Respiratory Function: Yes Nausea/Vomiting: No Temp > 96.8F: Yes Pain Manageable: Yes Adequeate Hydration: Yes Anesthesia Complications: No Block Receding Appropriately: Not Applicable Patient on Ventilator: Yes
[2020-01-01 16:14] LABS: Basophils # (Auto) 0.1 K/mm3 (0.0-0.1); Basophils % (Auto) 0.9 % (0.0-1.8); Eosinophils # (Auto) 0.2 K/mm3 (0.0-0.4); Eosinophils % (Auto) 1.2 % (0.0-4.3); Hematocrit 28.8 % (35.5-45.6); Hemoglobin 9.1 gm/dl (11.8-15.2); Mean Corpuscular HGB Conc 32 % (32-34); Mean Corpuscular Volume 86 fl (84-94); Monocytes # (Auto) 1.1 K/mm3 (0.0-0.8); Monocytes % (Auto) 7.6 % (0.0-7.3); Platelet Count 219 K/mm3 (140-440); Red Blood Count 3.35 M/mm3 (3.65-5.03)
[2020-01-01] MEDS: TAMSULOSIN 0.4 MG CAP PO SCH (21:37)
[2020-01-01] MEDS ORDERED: VANCOMYCIN PHARMACY TO DOSE IV SCH (23:00)
[2020-01-01] MEDS ORDERED: VANCOMYCIN 2,000 MG in SODIUM CHLORIDE 0.9% 500 ML 500 ML IV ONE (23:00)
[2020-01-01] MEDS: POLYETHYLENE GLYCOL 3350 17 GM POWDER PO SCH (23:52)
--- NOTE | 2020-01-02 01:51 | XRay Report ---
CHEST 1 VIEW INDICATION: Pulmonary edema. COMPARISON: One day prior. FINDINGS: Support devices: Unchanged. Heart: Stable. Lungs/Pleura: Bilateral airspace disease is stable. No pneumothorax. IMPRESSION: 1. No significant change. Signer Name: Marbin Sanchez MD Signed: 01/02/2020 1:47 AM Workstation Name: [id number]
[2020-01-02] MEDS: ACETAMINOPHEN 325 MG/10.15 ML ORAL LIQD UNIT DOSE FEEDTUBE PRN (03:20)
[2020-01-02] MEDS: INSULIN LISPRO 100 UNIT/ML VIAL 3 mL SUB-Q SCH ×4 (05:57→18:30)
[2020-01-02] MEDS: METOPROLOL TARTRATE 50 MG TAB PO SCH (05:57)
[2020-01-02] MEDS: PIPERACIL/TAZOBACTA 4.5/NS 100 4.5 GM/100 ML VIAL IV SCH ×3 (08:26→21:59)
[2020-01-02] MEDS: FAMOTIDINE 20 MG TAB PO SCH ×2 (09:04→21:58)
[2020-01-02] MEDS: DOCUSATE SODIUM 100 MG/10 ML ORAL LIQD FEEDTUBE SCH ×2 (09:04→21:58)
[2020-01-02] MEDS: QUEtiapine 200 MG TAB PO SCH ×2 (09:05→22:02)
[2020-01-02] MEDS: FUROSEMIDE 40 MG/4 ML INJ IV SCH ×2 (09:05→21:58)
[2020-01-02] MEDS: AMIODARONE 200 MG TAB PO SCH ×2 (09:05→22:02)
--- NOTE | 2020-01-02 09:40 | Progress Note ---
Assessment and Plan 64 yo M s/p Percutaneous tracheostomy with fiberoptic bronchoscopy, PEG tube placement, POD 1 1. VDRF 2. B/L PNA 3. acute PE/DVT 4. R pleural effusion Patient stable. Vent settings unchanged - AC TV500 Ccz980% RR12 PEEP 8. CXR 01/01 - B/L airspace disease stable. NO PTX. Tracheostomy in satisfactory position. Plan: 1. vent weaning per critical care team 2. continue trach care per protocol 3. order placed for trach sutures to be removed on 01/06 by respiratory therapy 4. hepgtt resumed 5. continue TF via PEG, PEG care per protocol Will s/o. Please call with questions. Evaluation and treatment of this patient was during the time of the national and state emergency arising from COVID19 coronavirus pandemic. Treatment and procedures performed meet the current and available best practice and guidelines for patient during the COVID pandemic. Subjective Date of service: 01/02/20 Narrative: Pt seen and examined. No overnight events noted. Pt denies pain. Asking for water. Continues to have fevers with Tm 102.4. Tolerating TF. Objective Vital Signs - 12hr 01/01/20 01/01/20 01/01/20 21:44 22:00 23:00 Temperature Pulse Rate 101 H 112 H 110 H Pulse Rate [ From Monitor] Respiratory 14 16 Rate Blood Pressure 105/76 109/72 112/69 O2 Sat by Pulse 91 92 Oximetry O2 Sat by Pulse Oximetry [ Assessment] 01/01/20 01/01/20 01/01/20 23:14 23:31 23:46 Temperature 98.8 F Pulse Rate 115 H 106 H Pulse Rate [ From Monitor] Respiratory 16 Rate Blood Pressure 110/75 O2 Sat by Pulse 94 95 Oximetry O2 Sat by Pulse Oximetry [ Assessment] 01/02/20 01/02/20 01/02/20 00:00 00:01 01:01 Temperature Pulse Rate 108 H 109 H 116 H Pulse Rate [ 108 H From Monitor] Respiratory 22 13 15 Rate Blood Pressure 101/68 102/71 O2 Sat by Pulse 95 92 94 Oximetry O2 Sat by Pulse Oximetry [ Assessment] 01/02/20 01/02/20 01/02/20 02:00 03:00 03:29 Temperature 102.4 F H Pulse Rate 109 H 119 H Pulse Rate [ From Monitor] Respiratory 36 H 24 Rate Blood Pressure 112/77 115/69 O2 Sat by Pulse 92 92 Oximetry O2 Sat by Pulse Oximetry [ Assessment] 01/02/20 01/02/20 01/02/20 04:00 04:01 05:01 Temperature Pulse Rate 128 H 111 H 129 H Pulse Rate [ 128 H From Monitor] Respiratory 25 H 12 13 Rate Blood Pressure 105/74 105/74 117/84 O2 Sat by Pulse 95 93 94 Oximetry O2 Sat by Pulse Oximetry [ Assessment] 01/02/20 01/02/20 01/02/20 05:57 06:00 06:30 Temperature Pulse Rate 117 H 98 H 89 Pulse Rate [ From Monitor] Respiratory 14 13 Rate Blood Pressure 114/76 101/75 110/75 O2 Sat by Pulse 98 Oximetry O2 Sat by Pulse Oximetry [ Assessment] 01/02/20 01/02/20 01/02/20 07:00 07:30 08:00 Temperature Pulse Rate 107 H 109 H 105 H Pulse Rate [ From Monitor] Respiratory 19 24 18 Rate Blood Pressure 104/81 111/79 110/78 O2 Sat by Pulse 98 99 97 Oximetry O2 Sat by Pulse Oximetry [ Assessment] 01/02/20 01/02/20 01/02/20 08:30 08:33 09:00 Temperature Pulse Rate 125 H 127 H Pulse Rate [ From Monitor] Respiratory 22 14 Rate Blood Pressure 114/87 116/92 O2 Sat by Pulse 95 98 Oximetry O2 Sat by Pulse 99 Oximetry [ Assessment] 01/02/20 09:31 Temperature Pulse Rate 123 H Pulse Rate [ From Monitor] Respiratory 19 Rate Blood Pressure 108/85 O2 Sat by Pulse 96 Oximetry O2 Sat by Pulse Oximetry [ Assessment] - General physical appearance Narrative Exam: Gen: Awake and alert on vent. Answers yes/no questions appropriately. Follows commands ENT: Trach in place. Dressing c/d/i. CV: S1, S2 +. Tachy Resp: even and unlabored Abd: soft, NT, ND. PEG in place, dressing c/d/i. Bumper at 4cm at skin. Ext: mild edema - Labs 01/01/20 15:33 01/01/20 10:40 Diabetes panel 01/01/20 Range/Units 10:40 Sodium 145 (137-145) mmol/L Potassium 5.0 (3.6-5.0) mmol/L Chloride 100.7 (98-107) mmol/L Carbon Dioxide 27 (22-30) mmol/L BUN 31 H (9-20) mg/dL Creatinine 0.7 L (0.8-1.3) mg/dL Glucose 137 H (75-100) mg/dL Calcium 9.1 (8.4-10.2) mg/dL AST 73 H (5-40) units/L ALT 97 H (7-56) units/L Alkaline Phosphatase 71 (35-129) units/L Total Protein 7.0 (6.3-8.2) g/dL Albumin 2.8 L (3.9-5) g/dL Calcium panel 01/01/20 Range/Units 10:40 Calcium 9.1 (8.4-10.2) mg/dL Albumin 2.8 L (3.9-5) g/dL Pituitary panel 01/01/20 Range/Units 10:40 Sodium 145 (137-145) mmol/L Potassium 5.0 (3.6-5.0) mmol/L Chloride 100.7 (98-107) mmol/L Carbon Dioxide 27 (22-30) mmol/L BUN 31 H (9-20) mg/dL Creatinine 0.7 L (0.8-1.3) mg/dL Glucose 137 H (75-100) mg/dL Calcium 9.1 (8.4-10.2) mg/dL Adrenal panel 01/01/20 Range/Units 10:40 Sodium 145 (137-145) mmol/L Potassium 5.0 (3.6-5.0) mmol/L Chloride 100.7 (98-107) mmol/L Carbon Dioxide 27 (22-30) mmol/L BUN 31 H (9-20) mg/dL Creatinine 0.7 L (0.8-1.3) mg/dL Glucose 137 H (75-100) mg/dL Calcium 9.1 (8.4-10.2) mg/dL Total Bilirubin 0.80 (0.1-1.2) mg/dL AST 73 H (5-40) units/L ALT 97 H (7-56) units/L Alkaline Phosphatase 71 (35-129) units/L Total Protein 7.0 (6.3-8.2) g/dL Albumin 2.8 L (3.9-5) g/dL
--- NOTE | 2020-01-02 09:42 | Progress Note ---
Assessment and Plan - Patient Problems (1) Acute respiratory failure Current Visit: Yes Status: Acute (2) Bilateral pneumonia Current Visit: Yes Status: Acute (3) COPD exacerbation Current Visit: No Status: Acute (4) Hypertension Current Visit: No Status: Acute Qualifiers: Qualified Code(s): I10 - Essential (primary) hypertension (5) Cardiomyopathy Current Visit: Yes Status: Acute (6) Paroxysmal atrial fibrillation Current Visit: Yes Status: Acute Subjective Date of service: 01/02/20 Principal diagnosis: Ac hypoxemic resp failure; Pneumonia; PUI COVID-19; CHF; COPD; HTN Interval history: I SAW THIS PT & AGREE WITH THE Dx & Tx PLAN Objective Vital Signs Temp Pulse Pulse Resp BP Pulse Ox Pulse Ox 01/02/20 09:31 123 H 19 108/85 96 01/02/20 09:00 127 H 14 116/92 98 01/02/20 08:33 99 01/02/20 08:30 125 H 22 114/87 95 01/02/20 08:00 105 H 18 110/78 97 01/02/20 07:30 109 H 24 111/79 99 01/02/20 07:00 107 H 19 104/81 98 01/02/20 06:30 89 13 110/75 98 01/02/20 06:00 98 H 14 101/75 01/02/20 05:57 117 H 114/76 01/02/20 05:01 129 H 13 117/84 94 01/02/20 04:01 111 H 12 105/74 93 01/02/20 04:00 128 H 128 H 25 H 105/74 95 01/02/20 03:29 102.4 F H 01/02/20 03:00 119 H 24 115/69 92 01/02/20 02:00 109 H 36 H 112/77 92 01/02/20 01:01 116 H 15 102/71 94 01/02/20 00:01 109 H 13 101/68 92 01/02/20 00:00 108 H 108 H 22 95 01/01/20 23:46 106 H 110/75 95 01/01/20 23:31 98.8 F 01/01/20 23:14 115 H 16 94 01/01/20 23:00 110 H 16 112/69 92 01/01/20 22:00 112 H 14 109/72 91 01/01/20 21:44 101 H 105/76 01/01/20 21:00 109 H 16 114/75 90 01/01/20 20:00 107 H 115 H 19 106/75 92 01/01/20 19:56 98.9 F 01/01/20 19:43 103 H 99/69 96 01/01/20 19:00 109 H 15 101/71 94 01/01/20 18:00 118 H 12 103/78 90 01/01/20 17:00 113 H 13 116/78 84 01/01/20 16:21 98 H 108/67 97 01/01/20 16:00 99.5 F 101 H 86 15 108/67 87 01/01/20 15:00 135 H 20 149/102 92 01/01/20 14:29 125 H 155/109 01/01/20 14:28 127 H 155/109 97 01/01/20 14:03 117 H 104/66 01/01/20 12:01 123 H 12 104/66 91 01/01/20 12:00 100.4 F H 01/01/20 11:00 112 H 10 L 127/68 90 01/01/20 10:04 103 H 142/91 95 01/01/20 10:01 127 H 20 142/91 81 L - Physical Examination General: Other (intubated on the vent) HEENT: Positive: PERRL Neck: Positive: neck supple Cardiac: Positive: Irregularly Regular Lungs: Positive: Rhonchi Neuro: Positive: Other (Intubated ,alert) Abdomen: Positive: Soft Skin: Positive: Clear Extremities: Absent: edema - Labs and Meds Cardiac Enzymes 01/01/20 Range/Units 10:40 AST 73 H (5-40) units/L CBC 01/01/20 Range/Units 15:33 WBC 14.3 H (4.5-11.0) K/mm3 RBC 3.35 L (3.65-5.03) M/mm3 Hgb 9.1 L (11.8-15.2) gm/dl Hct 28.8 L (35.5-45.6) % Plt Count 219 (140-440) K/mm3 Lymph # (Auto) 1.0 L (1.2-5.4) K/mm3 [place]borne # (Auto) 1.1 H (0.0-0.8) K/mm3 Eos # (Auto) 0.2 (0.0-0.4) K/mm3 Baso # (Auto) 0.1 (0.0-0.1) K/mm3 Comprehensive Metabolic Panel 01/01/20 Range/Units 10:40 Sodium 145 (137-145) mmol/L Potassium 5.0 (3.6-5.0) mmol/L Chloride 100.7 (98-107) mmol/L Carbon Dioxide 27 (22-30) mmol/L BUN 31 H (9-20) mg/dL Creatinine 0.7 L (0.8-1.3) mg/dL Glucose 137 H (75-100) mg/dL Calcium 9.1 (8.4-10.2) mg/dL AST 73 H (5-40) units/L ALT 97 H (7-56) units/L Alkaline Phosphatase 71 (35-129) units/L Total Protein 7.0 (6.3-8.2) g/dL Albumin 2.8 L (3.9-5) g/dL - Allied health notes Allied health notes reviewed: nursing
[2020-01-02] MEDS: METOPROLOL TARTRATE 25 MG TAB FEEDTUBE SCH ×2 (10:05→17:13)
[2020-01-02] MEDS: fentaNYL DRIP Premix 2,000 MCG/100 ML BAG IV SCH ×3 (10:45→22:02)
--- NOTE | 2020-01-02 12:28 | Progress Note ---
Assessment and Plan Acute hypoxemic respiratory failure s/p trach on MVS Bilateral pneumonia, community acquired. Acute congestive heart failure exacerbation. History of cerebrovascular accident. Acute chronic obstructive pulmonary disease exacerbation. Hypertension and hypertensive urgency at presentation. History of arthritis. Oropharyngeal dysphagia Right Lext DVT Pulmonary embolism Trach care, airway clearance, secretion management Anticoagulation for PE Gentle intermittent diuretic as tolerated by hemodynamics and renal function Monitor closely - continue to monitor renal function, hemodynamics and electrolyte profile - continue to wean oxygen for O2 sats > 90% - continue bronchodilators with pulmonary hygiene per RT - VAP bundle addressed (Aspiration precautions, HOB >40) - continue to wean per pulmonary driven protocols - continue prn analgesia per CPOT score - follow clinically re: fever curves / trend WBC - Avoid delirium (no benzodiazepines if they can be avoided) - Enteral nutrition at goal rate as tolerated - continue accuchecks with glycemic control per SSI for target blood glucose goal of 140-180 mg/dL while critically ill; Avoid hypoglycemia - continue VTE prophylaxis with Heparin therapeutic dosing for PE/DVT - continue stress ulcer prophylaxis with Famotidine BID - continue mobility protocols for pressure ulcer prophylaxis - continue fall precautions - Supportive transfusions as indicated to keep HgB>7g/dL - Continue to monitor neurologic function - Continue chronic home medications as clinically indicated - Continue all supportive care CONDITION: CRITICAL PROGNOSIS: GUARDED CODE STATUS: FULL CODE The high probability of a clinically significant, sudden or life threatening deterioration of the [Respiratory, cardiovascular & neurological] system(s) required my full and direct attention, intervention and personal management. The aggregate critical care time was [33] minutes without overlap. Time includes spent on [x] Data Review and interpretation [x] Patient assessment and monitoring of vital signs [x] Documentation [x] Medication orders and management Subjective Date of service: 01/02/20 Principal diagnosis: Ac hypoxemic resp failure; Pneumonia; PUI COVID-19; CHF; COPD; HTN Interval history: Patient is seen today for: Acute hypoxemic respiratory failure; [place]. Pneumonia (CAP); PUI COVID-19 infection; AE-CHF; AE-COPD; H/O CVA; HTN; PE, DVT Seen and examined at bedside; 24 hour events reviewed; nursing and respiratory care staff consulted; no adverse overnight events reported to me; resting peacefully in bed;s/p trach No asynchrony, No episodes of vomiting. No fevers. Did not tolerate SBT this morning, tachypnea and some agitation Objective Vital Signs - 12hr 01/02/20 01/02/20 01/02/20 01:01 02:00 03:00 Temperature Pulse Rate 116 H 109 H 119 H Pulse Rate [ From Monitor] Respiratory 15 36 H 24 Rate Respiratory Rate [Chest] Blood Pressure 102/71 112/77 115/69 O2 Sat by Pulse 94 92 92 Oximetry O2 Sat by Pulse Oximetry [ Assessment] 01/02/20 01/02/20 01/02/20 03:29 04:00 04:01 Temperature 102.4 F H Pulse Rate 128 H 111 H Pulse Rate [ 128 H From Monitor] Respiratory 25 H 12 Rate Respiratory Rate [Chest] Blood Pressure 105/74 105/74 O2 Sat by Pulse 95 93 Oximetry O2 Sat by Pulse Oximetry [ Assessment] 01/02/20 01/02/20 01/02/20 05:01 05:57 06:00 Temperature Pulse Rate 129 H 117 H 98 H Pulse Rate [ From Monitor] Respiratory 13 14 Rate Respiratory Rate [Chest] Blood Pressure 117/84 114/76 101/75 O2 Sat by Pulse 94 Oximetry O2 Sat by Pulse Oximetry [ Assessment] 01/02/20 01/02/20 01/02/20 06:30 07:00 07:30 Temperature Pulse Rate 89 107 H 109 H Pulse Rate [ From Monitor] Respiratory 13 19 24 Rate Respiratory Rate [Chest] Blood Pressure 110/75 104/81 111/79 O2 Sat by Pulse 98 98 99 Oximetry O2 Sat by Pulse Oximetry [ Assessment] 01/02/20 01/02/20 01/02/20 08:00 08:30 08:33 Temperature 98.6 F Pulse Rate 102 H 125 H Pulse Rate [ 102 H From Monitor] Respiratory 19 22 Rate Respiratory 19 Rate [Chest] Blood Pressure 110/78 114/87 O2 Sat by Pulse 95 95 Oximetry O2 Sat by Pulse 99 Oximetry [ Assessment] 01/02/20 01/02/20 01/02/20 09:00 09:31 10:00 Temperature Pulse Rate 127 H 123 H 159 H Pulse Rate [ From Monitor] Respiratory 14 19 28 H Rate Respiratory Rate [Chest] Blood Pressure 116/92 108/85 108/85 O2 Sat by Pulse 98 96 98 Oximetry O2 Sat by Pulse Oximetry [ Assessment] 01/02/20 01/02/20 01/02/20 10:05 10:06 10:31 Temperature Pulse Rate 142 H 131 H Pulse Rate [ From Monitor] Respiratory 18 17 Rate Respiratory Rate [Chest] Blood Pressure 167/88 121/80 O2 Sat by Pulse 95 Oximetry O2 Sat by Pulse Oximetry [ Assessment] 01/02/20 01/02/20 01/02/20 11:00 11:06 11:30 Temperature Pulse Rate 139 H 136 H Pulse Rate [ From Monitor] Respiratory 16 16 22 Rate Respiratory Rate [Chest] Blood Pressure 104/68 115/89 O2 Sat by Pulse 93 96 Oximetry O2 Sat by Pulse Oximetry [ Assessment] 01/02/20 01/02/20 11:49 12:00 Temperature 98.8 F Pulse Rate 137 H Pulse Rate [ 125 H From Monitor] Respiratory 18 14 Rate Respiratory 18 Rate [Chest] Blood Pressure 118/85 O2 Sat by Pulse 96 96 Oximetry O2 Sat by Pulse Oximetry [ Assessment] Constitutional: no acute distress, alert, other (elderly and obese male, normocephalic with mildly increased respiratory effort at rest on MVS) Eyes: non-icteric ENT: oropharynx moist, other (trach to MVS) Neck: supple, no JVD Effort: mildly labored Ascultation: Bilateral: clear, diminished breath sounds (bases R>L), rhonchi Percussion: Bilateral: not dull Cardiovascular: irregular rhythm, other (S1,S2) Gastrointestinal: normoactive bowel sounds, soft, non-tender, non-distended Integumentary: normal Extremities: no cyanosis, pulses normal, no ischemia or petechiae, edema (bilateral upper ) Neurologic: normal mental status, non-focal exam (moves all extremities with extreme agitation), pupils equal and round, motor strength normal and Psychiatric: mood appropriate, affect normal CBC and BMP: 01/03/20 07:45 01/03/20 07:25 ABG, PT/INR, D-dimer: ABG ABG pH 7.439 pH Units (7.350-7.450) 12/30/19 04:59 POC ABG pCO2 52.9 mmHg (32.0-48.0) H 12/22/19 03:22 ABG pCO2 45.0 mm Hg 12/30/19 04:59 POC ABG pO2 52.3 mmHg (83-108) L 12/22/19 03:22 ABG pO2 89.3 mm Hg (80.0-90.0) 12/30/19 04:59 POC ABG HCO3 33.4 12/22/19 03:22 ABG O2 Saturation 96.3 % (95.0-99.0) 12/30/19 04:59 PT/INR, D-dimer PT 13.8 Sec. (12.2-14.9) 12/21/19 10:13 INR 1.05 (0.87-1.13) 12/21/19 10:13 Abnormal lab findings: Abnormal Labs 11/24/19 11/24/19 11/24/19 02:53 02:53 03:45 WBC 14.3 H RBC Hgb Hct MCHC RDW 17.2 H MCH Lymph % (Auto) [place] % (Auto) [place] # Eos # Lymph # (Auto) [place] # (Auto) Eos # (Auto) Seg Neutrophils % Seg Neuts % (Manual) Baso # (Auto) Lymphocytes % (Manual) Monocytes % (Manual) Eosinophils % (Manual) Basophils % (Manual) Seg Neutrophils # Seg Neutrophils # Man 8.3 H Lymphocytes # (Manual) Monocytes # (Manual) 0.9 H Eosinophils # (Manual) Nucleated RBC % Basophils # (Manual) APTT Heparin Anti-Xa Level ABG pH 7.313 L POC ABG pO2 ABG pO2 102.8 H ABG HCO3 ABG O2 Saturation ABG Base Excess -2.9 L POC ABG pCO2 ABG Hemoglobin ABG Oxyhemoglobin Oxyhemoglobin 93.9 L Sodium Potassium Chloride Carbon Dioxide BUN Creatinine Glucose 195 H POC Glucose Lactic Acid Calcium Phosphorus Magnesium AST ALT Lactate Dehydrogenase CK-MB (CK-2) 4.3 H C-Reactive Protein NT-Pro-B Natriuret Pep 1181 H Total Protein Albumin Urine WBC (Auto) 11/24/19 11/24/19 11/24/19 04:53 04:53 10:37 WBC RBC Hgb Hct MCHC RDW MCH Lymph % (Auto) [place] % (Auto) [place] # Eos # Lymph # (Auto) [place] # (Auto) Eos # (Auto) Seg Neutrophils % Seg Neuts % (Manual) Baso # (Auto) Lymphocytes % (Manual) Monocytes % (Manual) Eosinophils % (Manual) Basophils % (Manual) Seg Neutrophils # Seg Neutrophils # Man Lymphocytes # (Manual) Monocytes # (Manual) Eosinophils # (Manual) Nucleated RBC % Basophils # (Manual) APTT Heparin Anti-Xa Level ABG pH POC ABG pO2 ABG pO2 ABG HCO3 ABG O2 Saturation ABG Base Excess POC ABG pCO2 ABG Hemoglobin ABG Oxyhemoglobin Oxyhemoglobin Sodium Potassium Chloride Carbon Dioxide BUN Creatinine Glucose 162 H POC Glucose Lactic Acid 2.40 H* 2.50 H* Calcium Phosphorus Magnesium AST ALT Lactate Dehydrogenase 240 H CK-MB (CK-2) C-Reactive Protein NT-Pro-B Natriuret Pep Total Protein Albumin Urine WBC (Auto) 11/24/19 11/24/19 11/24/19 12:21 14:50 19:54 WBC RBC Hgb Hct MCHC RDW MCH Lymph % (Auto) [place] % (Auto) [place] # Eos # Lymph # (Auto) [place] # (Auto) Eos # (Auto) Seg Neutrophils % Seg Neuts % (Manual) Baso # (Auto) Lymphocytes % (Manual) Monocytes % (Manual) Eosinophils % (Manual) Basophils % (Manual) Seg Neutrophils # Seg Neutrophils # Man Lymphocytes # (Manual) Monocytes # (Manual) Eosinophils # (Manual) Nucleated RBC % Basophils # (Manual) APTT Heparin Anti-Xa Level ABG pH POC ABG pO2 ABG pO2 ABG HCO3 ABG O2 Saturation ABG Base Excess POC ABG pCO2 ABG Hemoglobin ABG Oxyhemoglobin Oxyhemoglobin Sodium Potassium Chloride Carbon Dioxide BUN Creatinine Glucose POC Glucose 145 H 143 H 124 H Lactic Acid Calcium Phosphorus Magnesium AST ALT Lactate Dehydrogenase CK-MB (CK-2) C-Reactive Protein NT-Pro-B Natriuret Pep Total Protein Albumin Urine WBC (Auto) 11/25/19 11/25/19 11/25/19 00:18 03:18 05:11 WBC 13.7 H RBC Hgb Hct MCHC RDW 17.1 H MCH Lymph % (Auto) 10.8 L [place] % (Auto) 8.7 H [place] # 1.2 H Eos # Lymph # (Auto) [place] # (Auto) Eos # (Auto) Seg Neutrophils % 80.2 H Seg Neuts % (Manual) Baso # (Auto) Lymphocytes % (Manual) Monocytes % (Manual) Eosinophils % (Manual) Basophils % (Manual) Seg Neutrophils # 11.0 H Seg Neutrophils # Man Lymphocytes # (Manual) Monocytes # (Manual) Eosinophils # (Manual) Nucleated RBC % Basophils # (Manual) APTT Heparin Anti-Xa Level ABG pH 7.333 L POC ABG pO2 ABG pO2 61.2 L ABG HCO3 ABG O2 Saturation 90.2 L ABG Base Excess POC ABG pCO2 ABG Hemoglobin 13.7 L ABG Oxyhemoglobin Oxyhemoglobin 88.2 L Sodium Potassium Chloride Carbon Dioxide BUN Creatinine Glucose POC Glucose 109 H Lactic Acid Calcium Phosphorus Magnesium AST ALT Lactate Dehydrogenase CK-MB (CK-2) C-Reactive Protein NT-Pro-B Natriuret Pep Total Protein Albumin Urine WBC (Auto) 11/25/19 11/25/19 11/26/19 05:11 11:40 03:12 WBC RBC Hgb Hct MCHC RDW MCH Lymph % (Auto) [place] % (Auto) [place] # Eos # Lymph # (Auto) [place] # (Auto) Eos # (Auto) Seg Neutrophils % Seg Neuts % (Manual) Baso # (Auto) Lymphocytes % (Manual) Monocytes % (Manual) Eosinophils % (Manual) Basophils % (Manual) Seg Neutrophils # Seg Neutrophils # Man Lymphocytes # (Manual) Monocytes # (Manual) Eosinophils # (Manual) Nucleated RBC % Basophils # (Manual) APTT Heparin Anti-Xa Level ABG pH POC ABG pO2 ABG pO2 155.1 H ABG HCO3 27.8 H ABG O2 Saturation ABG Base Excess POC ABG pCO2 ABG Hemoglobin 12.2 L ABG Oxyhemoglobin Oxyhemoglobin Sodium Potassium Chloride Carbon Dioxide BUN 23 H Creatinine Glucose 110 H POC Glucose 108 H Lactic Acid Calcium Phosphorus Magnesium AST ALT Lactate Dehydrogenase CK-MB (CK-2) C-Reactive Protein NT-Pro-B Natriuret Pep Total Protein Albumin Urine WBC (Auto) 11/26/19 11/26/19 11/26/19 06:17 10:43 10:43 WBC 11.4 H RBC Hgb Hct MCHC RDW 17.1 H MCH Lymph % (Auto) [place] % (Auto) [place] # Eos # Lymph # (Auto) [place] # (Auto) Eos # (Auto) Seg Neutrophils % Seg Neuts % (Manual) Baso # (Auto) Lymphocytes % (Manual) Monocytes % (Manual) Eosinophils % (Manual) Basophils % (Manual) Seg Neutrophils # Seg Neutrophils # Man Lymphocytes # (Manual) Monocytes # (Manual) Eosinophils # (Manual) Nucleated RBC % Basophils # (Manual) APTT Heparin Anti-Xa Level ABG pH POC ABG pO2 ABG pO2 ABG HCO3 ABG O2 Saturation ABG Base Excess POC ABG pCO2 ABG Hemoglobin ABG Oxyhemoglobin Oxyhemoglobin Sodium Potassium Chloride Carbon Dioxide BUN 29 H Creatinine Glucose POC Glucose 107 H Lactic Acid Calcium Phosphorus Magnesium AST ALT Lactate Dehydrogenase CK-MB (CK-2) C-Reactive Protein NT-Pro-B Natriuret Pep Total Protein Albumin Urine WBC (Auto) 11/26/19 11/27/19 11/27/19 17:11 01:53 04:11 WBC RBC Hgb Hct MCHC RDW MCH Lymph % (Auto) [place] % (Auto) [place] # Eos # Lymph # (Auto) [place] # (Auto) Eos # (Auto) Seg Neutrophils % Seg Neuts % (Manual) Baso # (Auto) Lymphocytes % (Manual) Monocytes % (Manual) Eosinophils % (Manual) Basophils % (Manual) Seg Neutrophils # Seg Neutrophils # Man Lymphocytes # (Manual) Monocytes # (Manual) Eosinophils # (Manual) Nucleated RBC % Basophils # (Manual) APTT Heparin Anti-Xa Level ABG pH POC ABG pO2 ABG pO2 ABG HCO3 29.2 H ABG O2 Saturation ABG Base Excess 3.4 H POC ABG pCO2 ABG Hemoglobin 13.3 L ABG Oxyhemoglobin Oxyhemoglobin 94.5 L Sodium Potassium Chloride Carbon Dioxide BUN Creatinine Glucose POC Glucose 113 H 108 H Lactic Acid Calcium Phosphorus Magnesium AST ALT Lactate Dehydrogenase CK-MB (CK-2) C-Reactive Protein NT-Pro-B Natriuret Pep Total Protein Albumin Urine WBC (Auto) 11/27/19 11/28/19 11/28/19 05:27 05:00 05:25 WBC RBC Hgb Hct MCHC RDW MCH Lymph % (Auto) [place] % (Auto) [place] # Eos # Lymph # (Auto) [place] # (Auto) Eos # (Auto) Seg Neutrophils % Seg Neuts % (Manual) Baso # (Auto) Lymphocytes % (Manual) Monocytes % (Manual) Eosinophils % (Manual) Basophils % (Manual) Seg Neutrophils # Seg Neutrophils # Man Lymphocytes # (Manual) Monocytes # (Manual) Eosinophils # (Manual) Nucleated RBC % Basophils # (Manual) APTT Heparin Anti-Xa Level ABG pH POC ABG pO2 68.1 L ABG pO2 ABG HCO3 ABG O2 Saturation ABG Base Excess POC ABG pCO2 ABG Hemoglobin ABG Oxyhemoglobin 91.2 L Oxyhemoglobin Sodium Potassium Chloride Carbon Dioxide BUN Creatinine Glucose POC Glucose 111 H 110 H Lactic Acid Calcium Phosphorus Magnesium AST ALT Lactate Dehydrogenase CK-MB (CK-2) C-Reactive Protein NT-Pro-B Natriuret Pep Total Protein Albumin Urine WBC (Auto) 11/28/19 11/28/19 11/28/19 12:08 13:47 13:47 WBC 11.3 H RBC Hgb Hct MCHC RDW 16.1 H MCH Lymph % (Auto) [place] % (Auto) 9.9 H [place] # 1.1 H Eos # Lymph # (Auto) [place] # (Auto) Eos # (Auto) Seg Neutrophils % 71.4 H Seg Neuts % (Manual) Baso # (Auto) Lymphocytes % (Manual) Monocytes % (Manual) Eosinophils % (Manual) Basophils % (Manual) Seg Neutrophils # 8.1 H Seg Neutrophils # Man Lymphocytes # (Manual) Monocytes # (Manual) Eosinophils # (Manual) Nucleated RBC % Basophils # (Manual) APTT Heparin Anti-Xa Level ABG pH POC ABG pO2 ABG pO2 ABG HCO3 ABG O2 Saturation ABG Base Excess POC ABG pCO2 ABG Hemoglobin ABG Oxyhemoglobin Oxyhemoglobin Sodium Potassium Chloride Carbon Dioxide BUN 23 H Creatinine Glucose 123 H POC Glucose 112 H Lactic Acid Calcium Phosphorus Magnesium AST ALT Lactate Dehydrogenase CK-MB (CK-2) C-Reactive Protein NT-Pro-B Natriuret Pep Total Protein Albumin 3.7 L Urine WBC (Auto) 11/28/19 11/29/19 11/29/19 17:26 03:55 17:04 WBC RBC Hgb Hct MCHC RDW MCH Lymph % (Auto) [place] % (Auto) [place] # Eos # Lymph # (Auto) [place] # (Auto) Eos # (Auto) Seg Neutrophils % Seg Neuts % (Manual) Baso # (Auto) Lymphocytes % (Manual) Monocytes % (Manual) Eosinophils % (Manual) Basophils % (Manual) Seg Neutrophils # Seg Neutrophils # Man Lymphocytes # (Manual) Monocytes # (Manual) Eosinophils # (Manual) Nucleated RBC % Basophils # (Manual) APTT Heparin Anti-Xa Level ABG pH POC ABG pO2 ABG pO2 65.7 L ABG HCO3 28.3 H ABG O2 Saturation 93.9 L ABG Base Excess 3.6 H POC ABG pCO2 ABG Hemoglobin 13.3 L ABG Oxyhemoglobin Oxyhemoglobin 91.5 L Sodium Potassium Chloride Carbon Dioxide BUN Creatinine Glucose POC Glucose 123 H 119 H Lactic Acid Calcium Phosphorus Magnesium AST ALT Lactate Dehydrogenase CK-MB (CK-2) C-Reactive Protein NT-Pro-B Natriuret Pep Total Protein Albumin Urine WBC (Auto) 11/30/19 11/30/19 11/30/19 04:17 04:17 04:56 WBC 13.4 H RBC Hgb Hct MCHC RDW 15.6 H MCH Lymph % (Auto) [place] % (Auto) [place] # Eos # Lymph # (Auto) [place] # (Auto) Eos # (Auto) Seg Neutrophils % Seg Neuts % (Manual) Baso # (Auto) Lymphocytes % (Manual) Monocytes % (Manual) Eosinophils % (Manual) Basophils % (Manual) Seg Neutrophils # Seg Neutrophils # Man Lymphocytes # (Manual) Monocytes # (Manual) Eosinophils # (Manual) Nucleated RBC % Basophils # (Manual) APTT Heparin Anti-Xa Level ABG pH POC ABG pO2 ABG pO2 56.3 L ABG HCO3 29.3 H ABG O2 Saturation 91.5 L ABG Base Excess 4.7 H POC ABG pCO2 ABG Hemoglobin 12.1 L ABG Oxyhemoglobin Oxyhemoglobin 89.2 L Sodium 147 H Potassium Chloride Carbon Dioxide BUN 30 H Creatinine Glucose 124 H POC Glucose Lactic Acid Calcium Phosphorus Magnesium AST ALT Lactate Dehydrogenase CK-MB (CK-2) C-Reactive Protein NT-Pro-B Natriuret Pep Total Protein Albumin 3.8 L Urine WBC (Auto) 11/30/19 11/30/19 11/30/19 05:51 11:54 18:17 WBC RBC Hgb Hct MCHC RDW MCH Lymph % (Auto) [place] % (Auto) [place] # Eos # Lymph # (Auto) [place] # (Auto) Eos # (Auto) Seg Neutrophils % Seg Neuts % (Manual) Baso # (Auto) Lymphocytes % (Manual) Monocytes % (Manual) Eosinophils % (Manual) Basophils % (Manual) Seg Neutrophils # Seg Neutrophils # Man Lymphocytes # (Manual) Monocytes # (Manual) Eosinophils # (Manual) Nucleated RBC % Basophils # (Manual) APTT Heparin Anti-Xa Level ABG pH POC ABG pO2 ABG pO2 ABG HCO3 ABG O2 Saturation ABG Base Excess POC ABG pCO2 ABG Hemoglobin ABG Oxyhemoglobin Oxyhemoglobin Sodium Potassium Chloride Carbon Dioxide BUN Creatinine Glucose POC Glucose 127 H 115 H 143 H Lactic Acid Calcium Phosphorus Magnesium AST ALT Lactate Dehydrogenase CK-MB (CK-2) C-Reactive Protein NT-Pro-B Natriuret Pep Total Protein Albumin Urine WBC (Auto) 12/01/19 12/01/19 12/01/19 01:18 05:22 12:16 WBC RBC Hgb Hct MCHC RDW MCH Lymph % (Auto) [place] % (Auto) [place] # Eos # Lymph # (Auto) [place] # (Auto) Eos # (Auto) Seg Neutrophils % Seg Neuts % (Manual) Baso # (Auto) Lymphocytes % (Manual) Monocytes % (Manual) Eosinophils % (Manual) Basophils % (Manual) Seg Neutrophils # Seg Neutrophils # Man Lymphocytes # (Manual) Monocytes # (Manual) Eosinophils # (Manual) Nucleated RBC % Basophils # (Manual) APTT Heparin Anti-Xa Level ABG pH POC ABG pO2 ABG pO2 ABG HCO3 ABG O2 Saturation ABG Base Excess POC ABG pCO2 ABG Hemoglobin ABG Oxyhemoglobin Oxyhemoglobin Sodium Potassium 3.5 L Chloride 107.8 H Carbon Dioxide BUN 37 H Creatinine Glucose 157 H POC Glucose 118 H 148 H Lactic Acid Calcium 8.2 L D Phosphorus Magnesium AST 48 H ALT 60 H Lactate Dehydrogenase 194 H CK-MB (CK-2) C-Reactive Protein 8.50 H NT-Pro-B Natriuret Pep Total Protein 5.5 L Albumin 2.8 L Urine WBC (Auto) 12/01/19 12/02/19 12/02/19 18:04 00:05 05:16 WBC 11.4 H RBC Hgb Hct MCHC RDW 15.9 H MCH Lymph % (Auto) [place] % (Auto) 9.9 H [place] # 1.1 H Eos # Lymph # (Auto) [place] # (Auto) Eos # (Auto) Seg Neutrophils % 70.3 H Seg Neuts % (Manual) Baso # (Auto) Lymphocytes % (Manual) Monocytes % (Manual) Eosinophils % (Manual) Basophils % (Manual) Seg Neutrophils # 8.0 H Seg Neutrophils # Man Lymphocytes # (Manual) Monocytes # (Manual) Eosinophils # (Manual) Nucleated RBC % Basophils # (Manual) APTT Heparin Anti-Xa Level ABG pH POC ABG pO2 ABG pO2 ABG HCO3 ABG O2 Saturation ABG Base Excess POC ABG pCO2 ABG Hemoglobin ABG Oxyhemoglobin Oxyhemoglobin Sodium Potassium Chloride Carbon Dioxide BUN Creatinine Glucose POC Glucose 143 H 107 H Lactic Acid Calcium Phosphorus Magnesium AST ALT Lactate Dehydrogenase CK-MB (CK-2) C-Reactive Protein NT-Pro-B Natriuret Pep Total Protein Albumin Urine WBC (Auto) 12/02/19 12/02/19 12/02/19 05:16 06:03 11:52 WBC RBC Hgb Hct MCHC RDW MCH Lymph % (Auto) [place] % (Auto) [place] # Eos # Lymph # (Auto) [place] # (Auto) Eos # (Auto) Seg Neutrophils % Seg Neuts % (Manual) Baso # (Auto) Lymphocytes % (Manual) Monocytes % (Manual) Eosinophils % (Manual) Basophils % (Manual) Seg Neutrophils # Seg Neutrophils # Man Lymphocytes # (Manual) Monocytes # (Manual) Eosinophils # (Manual) Nucleated RBC % Basophils # (Manual) APTT Heparin Anti-Xa Level ABG pH POC ABG pO2 ABG pO2 ABG HCO3 ABG O2 Saturation ABG Base Excess POC ABG pCO2 ABG Hemoglobin ABG Oxyhemoglobin Oxyhemoglobin Sodium 146 H Potassium Chloride Carbon Dioxide BUN 28 H Creatinine Glucose 123 H POC Glucose 110 H 152 H Lactic Acid Calcium Phosphorus Magnesium AST ALT Lactate Dehydrogenase CK-MB (CK-2) C-Reactive Protein NT-Pro-B Natriuret Pep Total Protein Albumin Urine WBC (Auto) 12/02/19 12/02/19 12/02/19 12:58 17:58 23:36 WBC RBC Hgb Hct MCHC RDW MCH Lymph % (Auto) [place] % (Auto) [place] # Eos # Lymph # (Auto) [place] # (Auto) Eos # (Auto) Seg Neutrophils % Seg Neuts % (Manual) Baso # (Auto) Lymphocytes % (Manual) Monocytes % (Manual) Eosinophils % (Manual) Basophils % (Manual) Seg Neutrophils # Seg Neutrophils # Man Lymphocytes # (Manual) Monocytes # (Manual) Eosinophils # (Manual) Nucleated RBC % Basophils # (Manual) APTT Heparin Anti-Xa Level ABG pH POC ABG pO2 78.1 L ABG pO2 ABG HCO3 ABG O2 Saturation ABG Base Excess POC ABG pCO2 ABG Hemoglobin ABG Oxyhemoglobin Oxyhemoglobin Sodium Potassium Chloride Carbon Dioxide BUN Creatinine Glucose POC Glucose 120 H 123 H Lactic Acid Calcium Phosphorus Magnesium AST ALT Lactate Dehydrogenase CK-MB (CK-2) C-Reactive Protein NT-Pro-B Natriuret Pep Total Protein Albumin Urine WBC (Auto) 12/03/19 12/03/19 12/03/19 06:03 06:14 11:46 WBC RBC Hgb Hct MCHC RDW MCH Lymph % (Auto) [place] % (Auto) [place] # Eos # Lymph # (Auto) [place] # (Auto) Eos # (Auto) Seg Neutrophils % Seg Neuts % (Manual) Baso # (Auto) Lymphocytes % (Manual) Monocytes % (Manual) Eosinophils % (Manual) Basophils % (Manual) Seg Neutrophils # Seg Neutrophils # Man Lymphocytes # (Manual) Monocytes # (Manual) Eosinophils # (Manual) Nucleated RBC % Basophils # (Manual) APTT Heparin Anti-Xa Level ABG pH POC ABG pO2 ABG pO2 ABG HCO3 ABG O2 Saturation ABG Base Excess POC ABG pCO2 ABG Hemoglobin ABG Oxyhemoglobin Oxyhemoglobin Sodium Potassium Chloride Carbon Dioxide BUN Creatinine Glucose POC Glucose 142 H 130 H Lactic Acid Calcium Phosphorus Magnesium AST ALT Lactate Dehydrogenase CK-MB (CK-2) C-Reactive Protein NT-Pro-B Natriuret Pep Total Protein Albumin Urine WBC (Auto) 8.0 H 12/03/19 12/03/19 12/04/19 15:50 17:39 00:04 WBC RBC Hgb Hct MCHC RDW MCH Lymph % (Auto) [place] % (Auto) [place] # Eos # Lymph # (Auto) [place] # (Auto) Eos # (Auto) Seg Neutrophils % Seg Neuts % (Manual) Baso # (Auto) Lymphocytes % (Manual) Monocytes % (Manual) Eosinophils % (Manual) Basophils % (Manual) Seg Neutrophils # Seg Neutrophils # Man Lymphocytes # (Manual) Monocytes # (Manual) Eosinophils # (Manual) Nucleated RBC % Basophils # (Manual) APTT Heparin Anti-Xa Level ABG pH POC ABG pO2 ABG pO2 ABG HCO3 ABG O2 Saturation ABG Base Excess POC ABG pCO2 ABG Hemoglobin ABG Oxyhemoglobin Oxyhemoglobin Sodium Potassium Chloride Carbon Dioxide BUN Creatinine Glucose POC Glucose 146 H 133 H Lactic Acid Calcium Phosphorus 2.40 L Magnesium AST ALT Lactate Dehydrogenase CK-MB (CK-2) C-Reactive Protein NT-Pro-B Natriuret Pep Total Protein Albumin Urine WBC (Auto) 12/04/19 12/04/19 12/04/19 03:58 03:58 05:22 WBC 12.5 H RBC Hgb 11.2 L Hct 35.2 L MCHC RDW 16.0 H MCH Lymph % (Auto) [place] % (Auto) 9.6 H [place] # 1.2 H Eos # 0.5 H Lymph # (Auto) [place] # (Auto) Eos # (Auto) Seg Neutrophils % Seg Neuts % (Manual) Baso # (Auto) Lymphocytes % (Manual) Monocytes % (Manual) Eosinophils % (Manual) Basophils % (Manual) Seg Neutrophils # 8.6 H Seg Neutrophils # Man Lymphocytes # (Manual) Monocytes # (Manual) Eosinophils # (Manual) Nucleated RBC % Basophils # (Manual) APTT Heparin Anti-Xa Level ABG pH POC ABG pO2 ABG pO2 ABG HCO3 ABG O2 Saturation ABG Base Excess POC ABG pCO2 ABG Hemoglobin ABG Oxyhemoglobin Oxyhemoglobin Sodium 146 H Potassium Chloride 108.6 H Carbon Dioxide BUN 30 H Creatinine 0.7 L Glucose 121 H POC Glucose 132 H Lactic Acid Calcium Phosphorus Magnesium AST ALT Lactate Dehydrogenase CK-MB (CK-2) C-Reactive Protein NT-Pro-B Natriuret Pep Total Protein Albumin Urine WBC (Auto) 12/04/19 12/04/19 12/05/19 13:26 18:43 00:19 WBC RBC Hgb Hct MCHC RDW MCH Lymph % (Auto) [place] % (Auto) [place] # Eos # Lymph # (Auto) [place] # (Auto) Eos # (Auto) Seg Neutrophils % Seg Neuts % (Manual) Baso # (Auto) Lymphocytes % (Manual) Monocytes % (Manual) Eosinophils % (Manual) Basophils % (Manual) Seg Neutrophils # Seg Neutrophils # Man Lymphocytes # (Manual) Monocytes # (Manual) Eosinophils # (Manual) Nucleated RBC % Basophils # (Manual) APTT Heparin Anti-Xa Level ABG pH POC ABG pO2 ABG pO2 ABG HCO3 ABG O2 Saturation ABG Base Excess POC ABG pCO2 ABG Hemoglobin ABG Oxyhemoglobin Oxyhemoglobin Sodium Potassium Chloride Carbon Dioxide BUN Creatinine Glucose POC Glucose 185 H 156 H 150 H Lactic Acid Calcium Phosphorus Magnesium AST ALT Lactate Dehydrogenase CK-MB (CK-2) C-Reactive Protein NT-Pro-B Natriuret Pep Total Protein Albumin Urine WBC (Auto) 12/05/19 12/05/19 12/05/19 03:37 03:37 05:14 WBC 16.3 H RBC Hgb 11.4 L Hct MCHC RDW 15.6 H MCH Lymph % (Auto) 9.9 L [place] % (Auto) 9.7 H [place] # 1.6 H Eos # Lymph # (Auto) [place] # (Auto) Eos # (Auto) Seg Neutrophils % 78.0 H Seg Neuts % (Manual) Baso # (Auto) Lymphocytes % (Manual) Monocytes % (Manual) Eosinophils % (Manual) Basophils % (Manual) Seg Neutrophils # 12.7 H Seg Neutrophils # Man Lymphocytes # (Manual) Monocytes # (Manual) Eosinophils # (Manual) Nucleated RBC % Basophils # (Manual) APTT Heparin Anti-Xa Level ABG pH POC ABG pO2 ABG pO2 ABG HCO3 ABG O2 Saturation ABG Base Excess POC ABG pCO2 ABG Hemoglobin ABG Oxyhemoglobin Oxyhemoglobin Sodium 146 H Potassium Chloride 107.2 H Carbon Dioxide BUN 27 H Creatinine 0.7 L Glucose 171 H POC Glucose 168 H Lactic Acid Calcium Phosphorus Magnesium AST ALT Lactate Dehydrogenase CK-MB (CK-2) C-Reactive Protein NT-Pro-B Natriuret Pep Total Protein Albumin Urine WBC (Auto) 12/05/19 12/05/19 12/05/19 12:31 18:10 23:58 WBC RBC Hgb Hct MCHC RDW MCH Lymph % (Auto) [place] % (Auto) [place] # Eos # Lymph # (Auto) [place] # (Auto) Eos # (Auto) Seg Neutrophils % Seg Neuts % (Manual) Baso # (Auto) Lymphocytes % (Manual) Monocytes % (Manual) Eosinophils % (Manual) Basophils % (Manual) Seg Neutrophils # Seg Neutrophils # Man Lymphocytes # (Manual) Monocytes # (Manual) Eosinophils # (Manual) Nucleated RBC % Basophils # (Manual) APTT Heparin Anti-Xa Level ABG pH POC ABG pO2 ABG pO2 ABG HCO3 ABG O2 Saturation ABG Base Excess POC ABG pCO2 ABG Hemoglobin ABG Oxyhemoglobin Oxyhemoglobin Sodium Potassium Chloride Carbon Dioxide BUN Creatinine Glucose POC Glucose 159 H 198 H 115 H Lactic Acid Calcium Phosphorus Magnesium AST ALT Lactate Dehydrogenase CK-MB (CK-2) C-Reactive Protein NT-Pro-B Natriuret Pep Total Protein Albumin Urine WBC (Auto) 12/06/19 12/06/19 12/06/19 05:24 05:24 05:25 WBC 14.9 H RBC Hgb 10.8 L Hct 34.0 L MCHC RDW 15.6 H MCH Lymph % (Auto) 10.7 L [place] % (Auto) 8.3 H [place] # 1.2 H Eos # Lymph # (Auto) [place] # (Auto) Eos # (Auto) Seg Neutrophils % 78.7 H Seg Neuts % (Manual) Baso # (Auto) Lymphocytes % (Manual) Monocytes % (Manual) Eosinophils % (Manual) Basophils % (Manual) Seg Neutrophils # 11.7 H Seg Neutrophils # Man Lymphocytes # (Manual) Monocytes # (Manual) Eosinophils # (Manual) Nucleated RBC % Basophils # (Manual) APTT Heparin Anti-Xa Level ABG pH POC ABG pO2 ABG pO2 ABG HCO3 ABG O2 Saturation ABG Base Excess POC ABG pCO2 ABG Hemoglobin ABG Oxyhemoglobin Oxyhemoglobin Sodium 148 H Potassium 5.1 H Chloride 107.6 H Carbon Dioxide BUN 27 H Creatinine 0.7 L Glucose 155 H POC Glucose 157 H Lactic Acid Calcium Phosphorus Magnesium AST ALT Lactate Dehydrogenase CK-MB (CK-2) C-Reactive Protein NT-Pro-B Natriuret Pep Total Protein Albumin Urine WBC (Auto) 12/07/19 12/07/19 12/07/19 00:13 05:34 11:33 WBC RBC Hgb Hct MCHC RDW MCH Lymph % (Auto) [place] % (Auto) [place] # Eos # Lymph # (Auto) [place] # (Auto) Eos # (Auto) Seg Neutrophils % Seg Neuts % (Manual) Baso # (Auto) Lymphocytes % (Manual) Monocytes % (Manual) Eosinophils % (Manual) Basophils % (Manual) Seg Neutrophils # Seg Neutrophils # Man Lymphocytes # (Manual) Monocytes # (Manual) Eosinophils # (Manual) Nucleated RBC % Basophils # (Manual) APTT Heparin Anti-Xa Level ABG pH POC ABG pO2 ABG pO2 ABG HCO3 ABG O2 Saturation ABG Base Excess POC ABG pCO2 ABG Hemoglobin ABG Oxyhemoglobin Oxyhemoglobin Sodium Potassium Chloride Carbon Dioxide BUN Creatinine Glucose POC Glucose 142 H 111 H 169 H Lactic Acid Calcium Phosphorus Magnesium AST ALT Lactate Dehydrogenase CK-MB (CK-2) C-Reactive Protein NT-Pro-B Natriuret Pep Total Protein Albumin Urine WBC (Auto) 12/07/19 12/07/19 12/07/19 12:41 13:25 18:19 WBC 12.4 H RBC 3.53 L Hgb 10.2 L Hct 32.1 L MCHC RDW 15.3 H MCH Lymph % (Auto) 10.6 L [place] % (Auto) 7.8 H [place] # 1.0 H Eos # Lymph # (Auto) [place] # (Auto) Eos # (Auto) Seg Neutrophils % 77.6 H Seg Neuts % (Manual) Baso # (Auto) Lymphocytes % (Manual) Monocytes % (Manual) Eosinophils % (Manual) Basophils % (Manual) Seg Neutrophils # 9.6 H Seg Neutrophils # Man Lymphocytes # (Manual) Monocytes # (Manual) Eosinophils # (Manual) Nucleated RBC % Basophils # (Manual) APTT Heparin Anti-Xa Level ABG pH POC ABG pO2 ABG pO2 ABG HCO3 ABG O2 Saturation ABG Base Excess POC ABG pCO2 ABG Hemoglobin ABG Oxyhemoglobin Oxyhemoglobin Sodium 149 H Potassium Chloride 108.4 H Carbon Dioxide BUN 26 H Creatinine 0.6 L Glucose 149 H POC Glucose 164 H Lactic Acid Calcium Phosphorus Magnesium 2.60 H AST 121 H ALT 145 H Lactate Dehydrogenase CK-MB (CK-2) C-Reactive Protein NT-Pro-B Natriuret Pep Total Protein Albumin 2.6 L Urine WBC (Auto) 12/07/19 12/08/19 12/08/19 22:25 00:02 03:55 WBC 13.3 H RBC 3.40 L Hgb 9.7 L Hct 30.8 L MCHC 31 L RDW 15.5 H MCH Lymph % (Auto) [place] % (Auto) 8.1 H [place] # 1.1 H Eos # Lymph # (Auto) [place] # (Auto) Eos # (Auto) Seg Neutrophils % 73.0 H Seg Neuts % (Manual) Baso # (Auto) Lymphocytes % (Manual) Monocytes % (Manual) Eosinophils % (Manual) Basophils % (Manual) Seg Neutrophils # 9.7 H Seg Neutrophils # Man Lymphocytes # (Manual) Monocytes # (Manual) Eosinophils # (Manual) Nucleated RBC % Basophils # (Manual) APTT Heparin Anti-Xa Level 0.12 L ABG pH POC ABG pO2 ABG pO2 ABG HCO3 ABG O2 Saturation ABG Base Excess POC ABG pCO2 ABG Hemoglobin ABG Oxyhemoglobin Oxyhemoglobin Sodium Potassium Chloride Carbon Dioxide BUN Creatinine Glucose POC Glucose 151 H Lactic Acid Calcium Phosphorus Magnesium AST ALT Lactate Dehydrogenase CK-MB (CK-2) C-Reactive Protein NT-Pro-B Natriuret Pep Total Protein Albumin Urine WBC (Auto) 12/08/19 12/08/19 12/08/19 03:55 05:21 06:01 WBC RBC Hgb Hct MCHC RDW MCH Lymph % (Auto) [place] % (Auto) [place] # Eos # Lymph # (Auto) [place] # (Auto) Eos # (Auto) Seg Neutrophils % Seg Neuts % (Manual) Baso # (Auto) Lymphocytes % (Manual) Monocytes % (Manual) Eosinophils % (Manual) Basophils % (Manual) Seg Neutrophils # Seg Neutrophils # Man Lymphocytes # (Manual) Monocytes # (Manual) Eosinophils # (Manual) Nucleated RBC % Basophils # (Manual) APTT Heparin Anti-Xa Level 0.20 L ABG pH POC ABG pO2 ABG pO2 ABG HCO3 ABG O2 Saturation ABG Base Excess POC ABG pCO2 ABG Hemoglobin ABG Oxyhemoglobin Oxyhemoglobin Sodium 149 H Potassium Chloride 108.0 H Carbon Dioxide BUN 28 H Creatinine 0.6 L Glucose 144 H POC Glucose 143 H Lactic Acid Calcium Phosphorus Magnesium AST 98 H ALT 145 H Lactate Dehydrogenase CK-MB (CK-2) C-Reactive Protein NT-Pro-B Natriuret Pep Total Protein 6.0 L Albumin 2.4 L Urine WBC (Auto) 12/08/19 12/08/19 12/08/19 12:08 18:11 23:53 WBC RBC Hgb Hct MCHC RDW MCH Lymph % (Auto) [place] % (Auto) [place] # Eos # Lymph # (Auto) [place] # (Auto) Eos # (Auto) Seg Neutrophils % Seg Neuts % (Manual) Baso # (Auto) Lymphocytes % (Manual) Monocytes % (Manual) Eosinophils % (Manual) Basophils % (Manual) Seg Neutrophils # Seg Neutrophils # Man Lymphocytes # (Manual) Monocytes # (Manual) Eosinophils # (Manual) Nucleated RBC % Basophils # (Manual) APTT Heparin Anti-Xa Level ABG pH POC ABG pO2 ABG pO2 ABG HCO3 ABG O2 Saturation ABG Base Excess POC ABG pCO2 ABG Hemoglobin ABG Oxyhemoglobin Oxyhemoglobin Sodium Potassium Chloride Carbon Dioxide BUN Creatinine Glucose POC Glucose 172 H 122 H 162 H Lactic Acid Calcium Phosphorus Magnesium AST ALT Lactate Dehydrogenase CK-MB (CK-2) C-Reactive Protein NT-Pro-B Natriuret Pep Total Protein Albumin Urine WBC (Auto) 12/09/19 12/09/19 12/09/19 04:03 04:03 05:53 WBC RBC Hgb 9.1 L Hct 28.9 L MCHC RDW MCH Lymph % (Auto) [place] % (Auto) [place] # Eos # Lymph # (Auto) [place] # (Auto) Eos # (Auto) Seg Neutrophils % Seg Neuts % (Manual) Baso # (Auto) Lymphocytes % (Manual) Monocytes % (Manual) Eosinophils % (Manual) Basophils % (Manual) Seg Neutrophils # Seg Neutrophils # Man Lymphocytes # (Manual) Monocytes # (Manual) Eosinophils # (Manual) Nucleated RBC % Basophils # (Manual) APTT Heparin Anti-Xa Level 0.15 L ABG pH POC ABG pO2 ABG pO2 ABG HCO3 ABG O2 Saturation ABG Base Excess POC ABG pCO2 ABG Hemoglobin ABG Oxyhemoglobin Oxyhemoglobin Sodium Potassium Chloride Carbon Dioxide BUN Creatinine Glucose POC Glucose 124 H Lactic Acid Calcium Phosphorus Magnesium AST ALT Lactate Dehydrogenase CK-MB (CK-2) C-Reactive Protein NT-Pro-B Natriuret Pep Total Protein Albumin Urine WBC (Auto) 12/09/19 12/09/19 12/10/19 09:43 12:41 00:13 WBC RBC Hgb Hct MCHC RDW MCH Lymph % (Auto) [place] % (Auto) [place] # Eos # Lymph # (Auto) [place] # (Auto) Eos # (Auto) Seg Neutrophils % Seg Neuts % (Manual) Baso # (Auto) Lymphocytes % (Manual) Monocytes % (Manual) Eosinophils % (Manual) Basophils % (Manual) Seg Neutrophils # Seg Neutrophils # Man Lymphocytes # (Manual) Monocytes # (Manual) Eosinophils # (Manual) Nucleated RBC % Basophils # (Manual) APTT Heparin Anti-Xa Level ABG pH POC ABG pO2 ABG pO2 ABG HCO3 ABG O2 Saturation ABG Base Excess POC ABG pCO2 ABG Hemoglobin ABG Oxyhemoglobin Oxyhemoglobin Sodium Potassium Chloride Carbon Dioxide BUN 25 H Creatinine 0.6 L Glucose 131 H POC Glucose 109 H 120 H Lactic Acid Calcium Phosphorus Magnesium AST ALT Lactate Dehydrogenase CK-MB (CK-2) C-Reactive Protein NT-Pro-B Natriuret Pep Total Protein Albumin Urine WBC (Auto) 12/10/19 12/10/19 12/10/19 04:14 04:14 12:00 WBC 13.3 H RBC 3.34 L Hgb 9.6 L Hct 30.4 L MCHC RDW 15.4 H MCH Lymph % (Auto) [place] % (Auto) [place] # Eos # Lymph # (Auto) [place] # (Auto) Eos # (Auto) Seg Neutrophils % Seg Neuts % (Manual) 75.0 H Baso # (Auto) Lymphocytes % (Manual) 13.0 L Monocytes % (Manual) 8.0 H Eosinophils % (Manual) Basophils % (Manual) 2.0 H Seg Neutrophils # Seg Neutrophils # Man 10.0 H Lymphocytes # (Manual) Monocytes # (Manual) 1.1 H Eosinophils # (Manual) Nucleated RBC % Basophils # (Manual) 0.3 H APTT Heparin Anti-Xa Level ABG pH POC ABG pO2 ABG pO2 ABG HCO3 ABG O2 Saturation ABG Base Excess POC ABG pCO2 ABG Hemoglobin ABG Oxyhemoglobin Oxyhemoglobin Sodium 147 H Potassium Chloride 108.3 H Carbon Dioxide BUN 21 H Creatinine 0.6 L Glucose 104 H POC Glucose 133 H Lactic Acid Calcium Phosphorus Magnesium AST ALT Lactate Dehydrogenase CK-MB (CK-2) C-Reactive Protein NT-Pro-B Natriuret Pep Total Protein Albumin Urine WBC (Auto) 12/10/19 12/10/19 12/11/19 18:44 21:20 00:08 WBC 14.9 H RBC 3.36 L Hgb 9.6 L Hct 30.5 L MCHC RDW 15.4 H MCH Lymph % (Auto) [place] % (Auto) [place] # Eos # Lymph # (Auto) [place] # (Auto) Eos # (Auto) Seg Neutrophils % Seg Neuts % (Manual) Baso # (Auto) Lymphocytes % (Manual) Monocytes % (Manual) Eosinophils % (Manual) Basophils % (Manual) Seg Neutrophils # Seg Neutrophils # Man Lymphocytes # (Manual) Monocytes # (Manual) Eosinophils # (Manual) Nucleated RBC % Basophils # (Manual) APTT Heparin Anti-Xa Level ABG pH POC ABG pO2 ABG pO2 ABG HCO3 ABG O2 Saturation ABG Base Excess POC ABG pCO2 ABG Hemoglobin ABG Oxyhemoglobin Oxyhemoglobin Sodium Potassium Chloride Carbon Dioxide BUN Creatinine Glucose POC Glucose 119 H 134 H Lactic Acid Calcium Phosphorus Magnesium AST ALT Lactate Dehydrogenase CK-MB (CK-2) C-Reactive Protein NT-Pro-B Natriuret Pep Total Protein Albumin Urine WBC (Auto) 12/11/19 12/11/19 12/11/19 03:54 07:28 08:36 WBC 11.9 H RBC 3.25 L Hgb 9.6 L Hct 29.2 L MCHC RDW 15.7 H MCH Lymph % (Auto) [place] % (Auto) [place] # Eos # Lymph # (Auto) [place] # (Auto) Eos # (Auto) Seg Neutrophils % Seg Neuts % (Manual) Baso # (Auto) Lymphocytes % (Manual) Monocytes % (Manual) Eosinophils % (Manual) Basophils % (Manual) Seg Neutrophils # Seg Neutrophils # Man Lymphocytes # (Manual) Monocytes # (Manual) Eosinophils # (Manual) Nucleated RBC % Basophils # (Manual) APTT Heparin Anti-Xa Level 0.10 L 0.16 L ABG pH POC ABG pO2 ABG pO2 ABG HCO3 ABG O2 Saturation ABG Base Excess POC ABG pCO2 ABG Hemoglobin ABG Oxyhemoglobin Oxyhemoglobin Sodium Potassium Chloride Carbon Dioxide BUN Creatinine Glucose POC Glucose Lactic Acid Calcium Phosphorus Magnesium AST ALT Lactate Dehydrogenase CK-MB (CK-2) C-Reactive Protein NT-Pro-B Natriuret Pep Total Protein Albumin Urine WBC (Auto) 12/11/19 12/11/19 12/11/19 08:36 11:45 17:15 WBC RBC Hgb Hct MCHC RDW MCH Lymph % (Auto) [place] % (Auto) [place] # Eos # Lymph # (Auto) [place] # (Auto) Eos # (Auto) Seg Neutrophils % Seg Neuts % (Manual) Baso # (Auto) Lymphocytes % (Manual) Monocytes % (Manual) Eosinophils % (Manual) Basophils % (Manual) Seg Neutrophils # Seg Neutrophils # Man Lymphocytes # (Manual) Monocytes # (Manual) Eosinophils # (Manual) Nucleated RBC % Basophils # (Manual) APTT Heparin Anti-Xa Level ABG pH POC ABG pO2 ABG pO2 ABG HCO3 ABG O2 Saturation ABG Base Excess POC ABG pCO2 ABG Hemoglobin ABG Oxyhemoglobin Oxyhemoglobin Sodium Potassium Chloride Carbon Dioxide BUN Creatinine 0.5 L Glucose 128 H POC Glucose 136 H 109 H Lactic Acid Calcium Phosphorus Magnesium AST ALT Lactate Dehydrogenase CK-MB (CK-2) C-Reactive Protein NT-Pro-B Natriuret Pep Total Protein Albumin Urine WBC (Auto) 12/12/19 12/12/19 12/12/19 00:03 05:53 05:53 WBC RBC Hgb 8.8 L Hct 27.6 L MCHC RDW MCH Lymph % (Auto) [place] % (Auto) [place] # Eos # Lymph # (Auto) [place] # (Auto) Eos # (Auto) Seg Neutrophils % Seg Neuts % (Manual) Baso # (Auto) Lymphocytes % (Manual) Monocytes % (Manual) Eosinophils % (Manual) Basophils % (Manual) Seg Neutrophils # Seg Neutrophils # Man Lymphocytes # (Manual) Monocytes # (Manual) Eosinophils # (Manual) Nucleated RBC % Basophils # (Manual) APTT Heparin Anti-Xa Level 0.22 L ABG pH POC ABG pO2 ABG pO2 ABG HCO3 ABG O2 Saturation ABG Base Excess POC ABG pCO2 ABG Hemoglobin ABG Oxyhemoglobin Oxyhemoglobin Sodium Potassium Chloride Carbon Dioxide BUN Creatinine Glucose POC Glucose 116 H Lactic Acid Calcium Phosphorus Magnesium AST ALT Lactate Dehydrogenase CK-MB (CK-2) C-Reactive Protein NT-Pro-B Natriuret Pep Total Protein Albumin Urine WBC (Auto) 12/12/19 12/12/19 12/12/19 09:38 12:18 17:44 WBC RBC Hgb Hct MCHC RDW MCH Lymph % (Auto) [place] % (Auto) [place] # Eos # Lymph # (Auto) [place] # (Auto) Eos # (Auto) Seg Neutrophils % Seg Neuts % (Manual) Baso # (Auto) Lymphocytes % (Manual) Monocytes % (Manual) Eosinophils % (Manual) Basophils % (Manual) Seg Neutrophils # Seg Neutrophils # Man Lymphocytes # (Manual) Monocytes # (Manual) Eosinophils # (Manual) Nucleated RBC % Basophils # (Manual) APTT Heparin Anti-Xa Level ABG pH POC ABG pO2 ABG pO2 ABG HCO3 ABG O2 Saturation ABG Base Excess POC ABG pCO2 ABG Hemoglobin ABG Oxyhemoglobin Oxyhemoglobin Sodium Potassium Chloride Carbon Dioxide BUN Creatinine Glucose POC Glucose 115 H 146 H 146 H Lactic Acid Calcium Phosphorus Magnesium AST ALT Lactate Dehydrogenase CK-MB (CK-2) C-Reactive Protein NT-Pro-B Natriuret Pep Total Protein Albumin Urine WBC (Auto) 12/12/19 12/13/19 12/13/19 23:33 05:32 05:32 WBC 13.1 H RBC 3.27 L Hgb 9.5 L Hct 29.3 L MCHC RDW 15.6 H MCH Lymph % (Auto) [place] % (Auto) [place] # Eos # Lymph # (Auto) [place] # (Auto) Eos # (Auto) Seg Neutrophils % Seg Neuts % (Manual) 74.0 H Baso # (Auto) Lymphocytes % (Manual) 8.0 L Monocytes % (Manual) 9.0 H Eosinophils % (Manual) 5.0 H Basophils % (Manual) Seg Neutrophils # Seg Neutrophils # Man 9.7 H Lymphocytes # (Manual) 1.0 L Monocytes # (Manual) 1.2 H Eosinophils # (Manual) 0.7 H Nucleated RBC % Basophils # (Manual) APTT Heparin Anti-Xa Level 0.20 L ABG pH POC ABG pO2 ABG pO2 ABG HCO3 ABG O2 Saturation ABG Base Excess POC ABG pCO2 ABG Hemoglobin ABG Oxyhemoglobin Oxyhemoglobin Sodium Potassium Chloride Carbon Dioxide BUN Creatinine Glucose POC Glucose 126 H Lactic Acid Calcium Phosphorus Magnesium AST ALT Lactate Dehydrogenase CK-MB (CK-2) C-Reactive Protein NT-Pro-B Natriuret Pep Total Protein Albumin Urine WBC (Auto) 12/13/19 12/13/19 12/13/19 05:32 05:46 11:57 WBC RBC Hgb Hct MCHC RDW MCH Lymph % (Auto) [place] % (Auto) [place] # Eos # Lymph # (Auto) [place] # (Auto) Eos # (Auto) Seg Neutrophils % Seg Neuts % (Manual) Baso # (Auto) Lymphocytes % (Manual) Monocytes % (Manual) Eosinophils % (Manual) Basophils % (Manual) Seg Neutrophils # Seg Neutrophils # Man Lymphocytes # (Manual) Monocytes # (Manual) Eosinophils # (Manual) Nucleated RBC % Basophils # (Manual) APTT Heparin Anti-Xa Level ABG pH POC ABG pO2 ABG pO2 ABG HCO3 ABG O2 Saturation ABG Base Excess POC ABG pCO2 ABG Hemoglobin ABG Oxyhemoglobin Oxyhemoglobin Sodium Potassium Chloride Carbon Dioxide 31 H BUN Creatinine 0.6 L Glucose 114 H POC Glucose 118 H 133 H Lactic Acid Calcium Phosphorus Magnesium AST ALT Lactate Dehydrogenase CK-MB (CK-2) C-Reactive Protein NT-Pro-B Natriuret Pep Total Protein Albumin Urine WBC (Auto) 12/13/19 12/13/19 12/14/19 17:44 23:46 05:32 WBC RBC Hgb Hct MCHC RDW MCH Lymph % (Auto) [place] % (Auto) [place] # Eos # Lymph # (Auto) [place] # (Auto) Eos # (Auto) Seg Neutrophils % Seg Neuts % (Manual) Baso # (Auto) Lymphocytes % (Manual) Monocytes % (Manual) Eosinophils % (Manual) Basophils % (Manual) Seg Neutrophils # Seg Neutrophils # Man Lymphocytes # (Manual) Monocytes # (Manual) Eosinophils # (Manual) Nucleated RBC % Basophils # (Manual) APTT Heparin Anti-Xa Level ABG pH POC ABG pO2 ABG pO2 ABG HCO3 ABG O2 Saturation ABG Base Excess POC ABG pCO2 ABG Hemoglobin ABG Oxyhemoglobin Oxyhemoglobin Sodium Potassium Chloride Carbon Dioxide BUN Creatinine Glucose POC Glucose 161 H 126 H 139 H Lactic Acid Calcium Phosphorus Magnesium AST ALT Lactate Dehydrogenase CK-MB (CK-2) C-Reactive Protein NT-Pro-B Natriuret Pep Total Protein Albumin Urine WBC (Auto) 12/14/19 12/14/19 12/14/19 06:03 06:03 09:37 WBC RBC Hgb 9.6 L Hct 30.4 L MCHC RDW MCH Lymph % (Auto) [place] % (Auto) [place] # Eos # Lymph # (Auto) [place] # (Auto) Eos # (Auto) Seg Neutrophils % Seg Neuts % (Manual) Baso # (Auto) Lymphocytes % (Manual) Monocytes % (Manual) Eosinophils % (Manual) Basophils % (Manual) Seg Neutrophils # Seg Neutrophils # Man Lymphocytes # (Manual) Monocytes # (Manual) Eosinophils # (Manual) Nucleated RBC % Basophils # (Manual) APTT Heparin Anti-Xa Level 0.24 L ABG pH POC ABG pO2 ABG pO2 ABG HCO3 ABG O2 Saturation ABG Base Excess POC ABG pCO2 ABG Hemoglobin ABG Oxyhemoglobin Oxyhemoglobin Sodium Potassium Chloride Carbon Dioxide BUN Creatinine 0.6 L Glucose 162 H POC Glucose Lactic Acid Calcium Phosphorus Magnesium AST 71 H ALT 118 H Lactate Dehydrogenase CK-MB (CK-2) C-Reactive Protein NT-Pro-B Natriuret Pep Total Protein 6.2 L Albumin 2.3 L Urine WBC (Auto) 12/14/19 12/14/19 12/15/19 12:06 18:18 00:19 WBC RBC Hgb Hct MCHC RDW MCH Lymph % (Auto) [place] % (Auto) [place] # Eos # Lymph # (Auto) [place] # (Auto) Eos # (Auto) Seg Neutrophils % Seg Neuts % (Manual) Baso # (Auto) Lymphocytes % (Manual) Monocytes % (Manual) Eosinophils % (Manual) Basophils % (Manual) Seg Neutrophils # Seg Neutrophils # Man Lymphocytes # (Manual) Monocytes # (Manual) Eosinophils # (Manual) Nucleated RBC % Basophils # (Manual) APTT Heparin Anti-Xa Level ABG pH POC ABG pO2 ABG pO2 ABG HCO3 ABG O2 Saturation ABG Base Excess POC ABG pCO2 ABG Hemoglobin ABG Oxyhemoglobin Oxyhemoglobin Sodium Potassium Chloride Carbon Dioxide BUN Creatinine Glucose POC Glucose 147 H 166 H 123 H Lactic Acid Calcium Phosphorus Magnesium AST ALT Lactate Dehydrogenase CK-MB (CK-2) C-Reactive Protein NT-Pro-B Natriuret Pep Total Protein Albumin Urine WBC (Auto) 12/15/19 12/15/19 12/15/19 05:28 05:29 05:29 WBC 14.9 H RBC 3.19 L Hgb 9.1 L Hct 28.7 L MCHC RDW 16.0 H MCH Lymph % (Auto) [place] % (Auto) [place] # Eos # Lymph # (Auto) [place] # (Auto) Eos # (Auto) Seg Neutrophils % Seg Neuts % (Manual) Baso # (Auto) Lymphocytes % (Manual) Monocytes % (Manual) Eosinophils % (Manual) Basophils % (Manual) Seg Neutrophils # Seg Neutrophils # Man Lymphocytes # (Manual) Monocytes # (Manual) Eosinophils # (Manual) Nucleated RBC % Basophils # (Manual) APTT Heparin Anti-Xa Level 0.19 L ABG pH POC ABG pO2 ABG pO2 ABG HCO3 ABG O2 Saturation ABG Base Excess POC ABG pCO2 ABG Hemoglobin ABG Oxyhemoglobin Oxyhemoglobin Sodium Potassium Chloride Carbon Dioxide BUN Creatinine 0.6 L Glucose 110 H POC Glucose Lactic Acid Calcium Phosphorus Magnesium AST ALT Lactate Dehydrogenase CK-MB (CK-2) C-Reactive Protein NT-Pro-B Natriuret Pep Total Protein Albumin Urine WBC (Auto) 12/15/19 12/15/19 12/15/19 05:53 11:50 17:26 WBC RBC Hgb Hct MCHC RDW MCH Lymph % (Auto) [place] % (Auto) [place] # Eos # Lymph # (Auto) [place] # (Auto) Eos # (Auto) Seg Neutrophils % Seg Neuts % (Manual) Baso # (Auto) Lymphocytes % (Manual) Monocytes % (Manual) Eosinophils % (Manual) Basophils % (Manual) Seg Neutrophils # Seg Neutrophils # Man Lymphocytes # (Manual) Monocytes # (Manual) Eosinophils # (Manual) Nucleated RBC % Basophils # (Manual) APTT Heparin Anti-Xa Level ABG pH POC ABG pO2 ABG pO2 ABG HCO3 ABG O2 Saturation ABG Base Excess POC ABG pCO2 ABG Hemoglobin ABG Oxyhemoglobin Oxyhemoglobin Sodium Potassium Chloride Carbon Dioxide BUN Creatinine Glucose POC Glucose 119 H 132 H 128 H Lactic Acid Calcium Phosphorus Magnesium AST ALT Lactate Dehydrogenase CK-MB (CK-2) C-Reactive Protein NT-Pro-B Natriuret Pep Total Protein Albumin Urine WBC (Auto) 12/15/19 12/16/19 12/16/19 23:11 05:30 05:46 WBC RBC Hgb 8.8 L Hct 27.9 L MCHC RDW MCH Lymph % (Auto) [place] % (Auto) [place] # Eos # Lymph # (Auto) [place] # (Auto) Eos # (Auto) Seg Neutrophils % Seg Neuts % (Manual) Baso # (Auto) Lymphocytes % (Manual) Monocytes % (Manual) Eosinophils % (Manual) Basophils % (Manual) Seg Neutrophils # Seg Neutrophils # Man Lymphocytes # (Manual) Monocytes # (Manual) Eosinophils # (Manual) Nucleated RBC % Basophils # (Manual) APTT Heparin Anti-Xa Level ABG pH POC ABG pO2 ABG pO2 ABG HCO3 ABG O2 Saturation ABG Base Excess POC ABG pCO2 ABG Hemoglobin ABG Oxyhemoglobin Oxyhemoglobin Sodium Potassium Chloride Carbon Dioxide BUN Creatinine Glucose POC Glucose 150 H 134 H Lactic Acid Calcium Phosphorus Magnesium AST ALT Lactate Dehydrogenase CK-MB (CK-2) C-Reactive Protein NT-Pro-B Natriuret Pep Total Protein Albumin Urine WBC (Auto) 12/16/19 12/16/19 12/16/19 05:46 05:46 11:44 WBC RBC Hgb Hct MCHC RDW MCH Lymph % (Auto) [place] % (Auto) [place] # Eos # Lymph # (Auto) [place] # (Auto) Eos # (Auto) Seg Neutrophils % Seg Neuts % (Manual) Baso # (Auto) Lymphocytes % (Manual) Monocytes % (Manual) Eosinophils % (Manual) Basophils % (Manual) Seg Neutrophils # Seg Neutrophils # Man Lymphocytes # (Manual) Monocytes # (Manual) Eosinophils # (Manual) Nucleated RBC % Basophils # (Manual) APTT Heparin Anti-Xa Level 0.20 L ABG pH POC ABG pO2 ABG pO2 ABG HCO3 ABG O2 Saturation ABG Base Excess POC ABG pCO2 ABG Hemoglobin ABG Oxyhemoglobin Oxyhemoglobin Sodium Potassium Chloride Carbon Dioxide 31 H BUN Creatinine 0.5 L Glucose 147 H POC Glucose 164 H Lactic Acid Calcium Phosphorus Magnesium AST ALT Lactate Dehydrogenase CK-MB (CK-2) C-Reactive Protein NT-Pro-B Natriuret Pep Total Protein Albumin Urine WBC (Auto) 12/16/19 12/16/19 12/17/19 17:17 23:49 05:30 WBC 13.9 H RBC 3.27 L Hgb 9.4 L Hct 29.2 L MCHC RDW 16.0 H MCH Lymph % (Auto) [place] % (Auto) 8.8 H [place] # Eos # Lymph # (Auto) [place] # (Auto) 1.2 H Eos # (Auto) 0.5 H Seg Neutrophils % 70.5 H Seg Neuts % (Manual) Baso # (Auto) 0.2 H Lymphocytes % (Manual) Monocytes % (Manual) Eosinophils % (Manual) Basophils % (Manual) Seg Neutrophils # 9.8 H Seg Neutrophils # Man Lymphocytes # (Manual) Monocytes # (Manual) Eosinophils # (Manual) Nucleated RBC % Basophils # (Manual) APTT Heparin Anti-Xa Level ABG pH POC ABG pO2 ABG pO2 ABG HCO3 ABG O2 Saturation ABG Base Excess POC ABG pCO2 ABG Hemoglobin ABG Oxyhemoglobin Oxyhemoglobin Sodium Potassium Chloride Carbon Dioxide BUN Creatinine Glucose POC Glucose 162 H 144 H Lactic Acid Calcium Phosphorus Magnesium AST ALT Lactate Dehydrogenase CK-MB (CK-2) C-Reactive Protein NT-Pro-B Natriuret Pep Total Protein Albumin Urine WBC (Auto) 12/17/19 12/17/19 12/17/19 05:30 06:06 11:50 WBC RBC Hgb Hct MCHC RDW MCH Lymph % (Auto) [place] % (Auto) [place] # Eos # Lymph # (Auto) [place] # (Auto) Eos # (Auto) Seg Neutrophils % Seg Neuts % (Manual) Baso # (Auto) Lymphocytes % (Manual) Monocytes % (Manual) Eosinophils % (Manual) Basophils % (Manual) Seg Neutrophils # Seg Neutrophils # Man Lymphocytes # (Manual) Monocytes # (Manual) Eosinophils # (Manual) Nucleated RBC % Basophils # (Manual) APTT Heparin Anti-Xa Level ABG pH POC ABG pO2 ABG pO2 ABG HCO3 ABG O2 Saturation ABG Base Excess POC ABG pCO2 ABG Hemoglobin ABG Oxyhemoglobin Oxyhemoglobin Sodium Potassium Chloride 97.4 L Carbon Dioxide 32 H BUN Creatinine 0.5 L Glucose 135 H POC Glucose 151 H 140 H Lactic Acid Calcium Phosphorus Magnesium AST ALT Lactate Dehydrogenase CK-MB (CK-2) C-Reactive Protein NT-Pro-B Natriuret Pep Total Protein Albumin Urine WBC (Auto) 12/17/19 12/17/19 12/18/19 17:50 23:46 05:17 WBC RBC Hgb 8.8 L Hct 28.0 L MCHC RDW MCH Lymph % (Auto) [place] % (Auto) [place] # Eos # Lymph # (Auto) [place] # (Auto) Eos # (Auto) Seg Neutrophils % Seg Neuts % (Manual) Baso # (Auto) Lymphocytes % (Manual) Monocytes % (Manual) Eosinophils % (Manual) Basophils % (Manual) Seg Neutrophils # Seg Neutrophils # Man Lymphocytes # (Manual) Monocytes # (Manual) Eosinophils # (Manual) Nucleated RBC % Basophils # (Manual) APTT Heparin Anti-Xa Level ABG pH POC ABG pO2 ABG pO2 ABG HCO3 ABG O2 Saturation ABG Base Excess POC ABG pCO2 ABG Hemoglobin ABG Oxyhemoglobin Oxyhemoglobin Sodium Potassium Chloride Carbon Dioxide BUN Creatinine Glucose POC Glucose 158 H 150 H Lactic Acid Calcium Phosphorus Magnesium AST ALT Lactate Dehydrogenase CK-MB (CK-2) C-Reactive Protein NT-Pro-B Natriuret Pep Total Protein Albumin Urine WBC (Auto) 12/18/19 12/18/19 12/18/19 05:17 05:49 11:12 WBC RBC Hgb Hct MCHC RDW MCH Lymph % (Auto) [place] % (Auto) [place] # Eos # Lymph # (Auto) [place] # (Auto) Eos # (Auto) Seg Neutrophils % Seg Neuts % (Manual) Baso # (Auto) Lymphocytes % (Manual) Monocytes % (Manual) Eosinophils % (Manual) Basophils % (Manual) Seg Neutrophils # Seg Neutrophils # Man Lymphocytes # (Manual) Monocytes # (Manual) Eosinophils # (Manual) Nucleated RBC % Basophils # (Manual) APTT Heparin Anti-Xa Level 0.16 L ABG pH POC ABG pO2 ABG pO2 ABG HCO3 ABG O2 Saturation ABG Base Excess POC ABG pCO2 ABG Hemoglobin ABG Oxyhemoglobin Oxyhemoglobin Sodium Potassium Chloride Carbon Dioxide BUN Creatinine Glucose POC Glucose 127 H 191 H Lactic Acid Calcium Phosphorus Magnesium AST ALT Lactate Dehydrogenase CK-MB (CK-2) C-Reactive Protein NT-Pro-B Natriuret Pep Total Protein Albumin Urine WBC (Auto) 12/18/19 12/18/19 12/19/19 17:03 20:16 00:08 WBC RBC Hgb Hct MCHC RDW MCH Lymph % (Auto) [place] % (Auto) [place] # Eos # Lymph # (Auto) [place] # (Auto) Eos # (Auto) Seg Neutrophils % Seg Neuts % (Manual) Baso # (Auto) Lymphocytes % (Manual) Monocytes % (Manual) Eosinophils % (Manual) Basophils % (Manual) Seg Neutrophils # Seg Neutrophils # Man Lymphocytes # (Manual) Monocytes # (Manual) Eosinophils # (Manual) Nucleated RBC % Basophils # (Manual) APTT Heparin Anti-Xa Level ABG pH POC ABG pO2 ABG pO2 ABG HCO3 ABG O2 Saturation ABG Base Excess POC ABG pCO2 ABG Hemoglobin ABG Oxyhemoglobin Oxyhemoglobin Sodium Potassium Chloride Carbon Dioxide BUN Creatinine Glucose POC Glucose 133 H 128 H 129 H Lactic Acid Calcium Phosphorus Magnesium AST ALT Lactate Dehydrogenase CK-MB (CK-2) C-Reactive Protein NT-Pro-B Natriuret Pep Total Protein Albumin Urine WBC (Auto) 12/19/19 12/19/19 12/19/19 04:45 04:45 05:35 WBC RBC Hgb Hct MCHC RDW MCH Lymph % (Auto) [place] % (Auto) [place] # Eos # Lymph # (Auto) [place] # (Auto) Eos # (Auto) Seg Neutrophils % Seg Neuts % (Manual) Baso # (Auto) Lymphocytes % (Manual) Monocytes % (Manual) Eosinophils % (Manual) Basophils % (Manual) Seg Neutrophils # Seg Neutrophils # Man Lymphocytes # (Manual) Monocytes # (Manual) Eosinophils # (Manual) Nucleated RBC % Basophils # (Manual) APTT Heparin Anti-Xa Level 0.17 L ABG pH POC ABG pO2 ABG pO2 ABG HCO3 ABG O2 Saturation ABG Base Excess POC ABG pCO2 ABG Hemoglobin ABG Oxyhemoglobin Oxyhemoglobin Sodium Potassium Chloride Carbon Dioxide BUN Creatinine Glucose POC Glucose 120 H Lactic Acid Calcium Phosphorus Magnesium AST ALT Lactate Dehydrogenase 228 H CK-MB (CK-2) C-Reactive Protein NT-Pro-B Natriuret Pep Total Protein Albumin Urine WBC (Auto) 12/19/19 12/19/19 12/19/19 09:20 11:32 11:32 WBC 14.6 H RBC 3.08 L Hgb 9.0 L Hct 26.8 L MCHC RDW 15.9 H MCH Lymph % (Auto) [place] % (Auto) [place] # Eos # Lymph # (Auto) [place] # (Auto) Eos # (Auto) Seg Neutrophils % Seg Neuts % (Manual) 82.0 H Baso # (Auto) Lymphocytes % (Manual) 10.0 L Monocytes % (Manual) Eosinophils % (Manual) Basophils % (Manual) Seg Neutrophils # Seg Neutrophils # Man 12.0 H Lymphocytes # (Manual) Monocytes # (Manual) 0.9 H Eosinophils # (Manual) Nucleated RBC % 1.0 H Basophils # (Manual) APTT Heparin Anti-Xa Level ABG pH 7.451 H POC ABG pO2 ABG pO2 62.6 L ABG HCO3 33.2 H ABG O2 Saturation 93.8 L ABG Base Excess 8.3 H POC ABG pCO2 ABG Hemoglobin 8.3 L ABG Oxyhemoglobin Oxyhemoglobin 91.9 L Sodium Potassium Chloride 95.0 L Carbon Dioxide 33 H BUN 22 H Creatinine 0.6 L Glucose 150 H POC Glucose Lactic Acid Calcium Phosphorus Magnesium AST ALT Lactate Dehydrogenase CK-MB (CK-2) C-Reactive Protein NT-Pro-B Natriuret Pep Total Protein 6.2 L Albumin 2.4 L Urine WBC (Auto) 12/19/19 12/19/19 12/20/19 11:56 18:17 00:09 WBC RBC Hgb Hct MCHC RDW MCH Lymph % (Auto) [place] % (Auto) [place] # Eos # Lymph # (Auto) [place] # (Auto) Eos # (Auto) Seg Neutrophils % Seg Neuts % (Manual) Baso # (Auto) Lymphocytes % (Manual) Monocytes % (Manual) Eosinophils % (Manual) Basophils % (Manual) Seg Neutrophils # Seg Neutrophils # Man Lymphocytes # (Manual) Monocytes # (Manual) Eosinophils # (Manual) Nucleated RBC % Basophils # (Manual) APTT Heparin Anti-Xa Level ABG pH POC ABG pO2 ABG pO2 ABG HCO3 ABG O2 Saturation ABG Base Excess POC ABG pCO2 ABG Hemoglobin ABG Oxyhemoglobin Oxyhemoglobin Sodium Potassium Chloride Carbon Dioxide BUN Creatinine Glucose POC Glucose 156 H 156 H 155 H Lactic Acid Calcium Phosphorus Magnesium AST ALT Lactate Dehydrogenase CK-MB (CK-2) C-Reactive Protein NT-Pro-B Natriuret Pep Total Protein Albumin Urine WBC (Auto) 12/20/19 12/20/19 12/20/19 05:26 06:02 18:17 WBC RBC Hgb Hct MCHC RDW MCH Lymph % (Auto) [place] % (Auto) [place] # Eos # Lymph # (Auto) [place] # (Auto) Eos # (Auto) Seg Neutrophils % Seg Neuts % (Manual) Baso # (Auto) Lymphocytes % (Manual) Monocytes % (Manual) Eosinophils % (Manual) Basophils % (Manual) Seg Neutrophils # Seg Neutrophils # Man Lymphocytes # (Manual) Monocytes # (Manual) Eosinophils # (Manual) Nucleated RBC % Basophils # (Manual) APTT Heparin Anti-Xa Level 0.19 L ABG pH POC ABG pO2 ABG pO2 ABG HCO3 ABG O2 Saturation ABG Base Excess POC ABG pCO2 ABG Hemoglobin ABG Oxyhemoglobin Oxyhemoglobin Sodium Potassium Chloride Carbon Dioxide BUN Creatinine Glucose POC Glucose 137 H 128 H Lactic Acid Calcium Phosphorus Magnesium AST ALT Lactate Dehydrogenase CK-MB (CK-2) C-Reactive Protein NT-Pro-B Natriuret Pep Total Protein Albumin Urine WBC (Auto) 12/20/19 12/21/19 12/21/19 23:34 05:31 05:31 WBC 12.7 H RBC 3.09 L Hgb 8.9 L Hct 27.4 L MCHC RDW 15.8 H MCH Lymph % (Auto) 12.1 L [place] % (Auto) 7.8 H [place] # Eos # Lymph # (Auto) [place] # (Auto) 1.0 H Eos # (Auto) Seg Neutrophils % 77.1 H Seg Neuts % (Manual) Baso # (Auto) Lymphocytes % (Manual) Monocytes % (Manual) Eosinophils % (Manual) Basophils % (Manual) Seg Neutrophils # 9.8 H Seg Neutrophils # Man Lymphocytes # (Manual) Monocytes # (Manual) Eosinophils # (Manual) Nucleated RBC % Basophils # (Manual) APTT Heparin Anti-Xa Level ABG pH POC ABG pO2 ABG pO2 ABG HCO3 ABG O2 Saturation ABG Base Excess POC ABG pCO2 ABG Hemoglobin ABG Oxyhemoglobin Oxyhemoglobin Sodium Potassium Chloride 96.9 L Carbon Dioxide 37 H BUN 27 H Creatinine 0.7 L Glucose 140 H POC Glucose 145 H Lactic Acid Calcium Phosphorus Magnesium AST ALT Lactate Dehydrogenase CK-MB (CK-2) C-Reactive Protein NT-Pro-B Natriuret Pep Total Protein Albumin Urine WBC (Auto) 12/21/19 12/21/19 12/21/19 05:38 10:13 11:51 WBC RBC Hgb Hct MCHC RDW MCH Lymph % (Auto) [place] % (Auto) [place] # Eos # Lymph # (Auto) [place] # (Auto) Eos # (Auto) Seg Neutrophils % Seg Neuts % (Manual) Baso # (Auto) Lymphocytes % (Manual) Monocytes % (Manual) Eosinophils % (Manual) Basophils % (Manual) Seg Neutrophils # Seg Neutrophils # Man Lymphocytes # (Manual) Monocytes # (Manual) Eosinophils # (Manual) Nucleated RBC % Basophils # (Manual) APTT 23.9 L Heparin Anti-Xa Level < 0.10 L ABG pH POC ABG pO2 ABG pO2 ABG HCO3 ABG O2 Saturation ABG Base Excess POC ABG pCO2 ABG Hemoglobin ABG Oxyhemoglobin Oxyhemoglobin Sodium Potassium Chloride Carbon Dioxide BUN Creatinine Glucose POC Glucose 151 H 145 H Lactic Acid Calcium Phosphorus Magnesium AST ALT Lactate Dehydrogenase CK-MB (CK-2) C-Reactive Protein NT-Pro-B Natriuret Pep Total Protein Albumin Urine WBC (Auto) 12/21/19 12/22/19 12/22/19 17:16 00:01 01:33 WBC RBC Hgb Hct MCHC RDW MCH Lymph % (Auto) [place] % (Auto) [place] # Eos # Lymph # (Auto) [place] # (Auto) Eos # (Auto) Seg Neutrophils % Seg Neuts % (Manual) Baso # (Auto) Lymphocytes % (Manual) Monocytes % (Manual) Eosinophils % (Manual) Basophils % (Manual) Seg Neutrophils # Seg Neutrophils # Man Lymphocytes # (Manual) Monocytes # (Manual) Eosinophils # (Manual) Nucleated RBC % Basophils # (Manual) APTT Heparin Anti-Xa Level 0.10 L ABG pH POC ABG pO2 ABG pO2 ABG HCO3 ABG O2 Saturation ABG Base Excess POC ABG pCO2 ABG Hemoglobin ABG Oxyhemoglobin Oxyhemoglobin Sodium Potassium Chloride Carbon Dioxide BUN Creatinine Glucose POC Glucose 167 H 179 H Lactic Acid Calcium Phosphorus Magnesium AST ALT Lactate Dehydrogenase CK-MB (CK-2) C-Reactive Protein NT-Pro-B Natriuret Pep Total Protein Albumin Urine WBC (Auto) 12/22/19 12/22/19 12/22/19 03:22 05:10 05:10 WBC 13.8 H RBC 3.20 L Hgb 8.9 L Hct 28.1 L MCHC RDW 15.9 H MCH Lymph % (Auto) [place] % (Auto) [place] # Eos # Lymph # (Auto) [place] # (Auto) Eos # (Auto) Seg Neutrophils % Seg Neuts % (Manual) Baso # (Auto) Lymphocytes % (Manual) Monocytes % (Manual) Eosinophils % (Manual) Basophils % (Manual) Seg Neutrophils # Seg Neutrophils # Man Lymphocytes # (Manual) Monocytes # (Manual) Eosinophils # (Manual) Nucleated RBC % Basophils # (Manual) APTT Heparin Anti-Xa Level ABG pH POC ABG pO2 52.3 L ABG pO2 ABG HCO3 ABG O2 Saturation ABG Base Excess POC ABG pCO2 52.9 H ABG Hemoglobin 10.7 L ABG Oxyhemoglobin 84 L Oxyhemoglobin Sodium Potassium Chloride 96.6 L Carbon Dioxide BUN 25 H Creatinine 0.7 L Glucose 129 H POC Glucose Lactic Acid Calcium Phosphorus Magnesium AST ALT Lactate Dehydrogenase CK-MB (CK-2) C-Reactive Protein NT-Pro-B Natriuret Pep Total Protein Albumin Urine WBC (Auto) 12/22/19 12/22/19 12/22/19 05:18 12:32 12:43 WBC RBC Hgb Hct MCHC RDW MCH Lymph % (Auto) [place] % (Auto) [place] # Eos # Lymph # (Auto) [place] # (Auto) Eos # (Auto) Seg Neutrophils % Seg Neuts % (Manual) Baso # (Auto) Lymphocytes % (Manual) Monocytes % (Manual) Eosinophils % (Manual) Basophils % (Manual) Seg Neutrophils # Seg Neutrophils # Man Lymphocytes # (Manual) Monocytes # (Manual) Eosinophils # (Manual) Nucleated RBC % Basophils # (Manual) APTT Heparin Anti-Xa Level 0.18 L ABG pH POC ABG pO2 ABG pO2 ABG HCO3 ABG O2 Saturation ABG Base Excess POC ABG pCO2 ABG Hemoglobin ABG Oxyhemoglobin Oxyhemoglobin Sodium Potassium Chloride Carbon Dioxide BUN Creatinine Glucose POC Glucose 131 H 208 H Lactic Acid Calcium Phosphorus Magnesium AST ALT Lactate Dehydrogenase CK-MB (CK-2) C-Reactive Protein NT-Pro-B Natriuret Pep Total Protein Albumin Urine WBC (Auto) 12/22/19 12/22/19 12/23/19 17:44 23:20 03:51 WBC 15.2 H RBC 3.43 L Hgb 9.6 L Hct 30.3 L MCHC RDW 15.9 H MCH Lymph % (Auto) [place] % (Auto) [place] # Eos # Lymph # (Auto) [place] # (Auto) Eos # (Auto) Seg Neutrophils % Seg Neuts % (Manual) Baso # (Auto) Lymphocytes % (Manual) Monocytes % (Manual) Eosinophils % (Manual) Basophils % (Manual) Seg Neutrophils # Seg Neutrophils # Man Lymphocytes # (Manual) Monocytes # (Manual) Eosinophils # (Manual) Nucleated RBC % Basophils # (Manual) APTT Heparin Anti-Xa Level ABG pH POC ABG pO2 ABG pO2 ABG HCO3 ABG O2 Saturation ABG Base Excess POC ABG pCO2 ABG Hemoglobin ABG Oxyhemoglobin Oxyhemoglobin Sodium Potassium Chloride Carbon Dioxide BUN Creatinine Glucose POC Glucose 209 H 119 H Lactic Acid Calcium Phosphorus Magnesium AST ALT Lactate Dehydrogenase CK-MB (CK-2) C-Reactive Protein NT-Pro-B Natriuret Pep Total Protein Albumin Urine WBC (Auto) 12/23/19 12/23/19 12/23/19 03:51 05:31 12:09 WBC RBC Hgb Hct MCHC RDW MCH Lymph % (Auto) [place] % (Auto) [place] # Eos # Lymph # (Auto) [place] # (Auto) Eos # (Auto) Seg Neutrophils % Seg Neuts % (Manual) Baso # (Auto) Lymphocytes % (Manual) Monocytes % (Manual) Eosinophils % (Manual) Basophils % (Manual) Seg Neutrophils # Seg Neutrophils # Man Lymphocytes # (Manual) Monocytes # (Manual) Eosinophils # (Manual) Nucleated RBC % Basophils # (Manual) APTT Heparin Anti-Xa Level ABG pH POC ABG pO2 ABG pO2 ABG HCO3 ABG O2 Saturation ABG Base Excess POC ABG pCO2 ABG Hemoglobin ABG Oxyhemoglobin Oxyhemoglobin Sodium Potassium Chloride 97.2 L Carbon Dioxide 31 H BUN 23 H Creatinine 0.6 L Glucose 153 H POC Glucose 149 H 144 H Lactic Acid Calcium Phosphorus Magnesium AST ALT Lactate Dehydrogenase CK-MB (CK-2) C-Reactive Protein NT-Pro-B Natriuret Pep Total Protein Albumin Urine WBC (Auto) 12/23/19 12/23/19 12/23/19 15:30 17:49 23:31 WBC RBC Hgb Hct MCHC RDW MCH Lymph % (Auto) [place] % (Auto) [place] # Eos # Lymph # (Auto) [place] # (Auto) Eos # (Auto) Seg Neutrophils % Seg Neuts % (Manual) Baso # (Auto) Lymphocytes % (Manual) Monocytes % (Manual) Eosinophils % (Manual) Basophils % (Manual) Seg Neutrophils # Seg Neutrophils # Man Lymphocytes # (Manual) Monocytes # (Manual) Eosinophils # (Manual) Nucleated RBC % Basophils # (Manual) APTT Heparin Anti-Xa Level 0.21 L ABG pH POC ABG pO2 ABG pO2 ABG HCO3 ABG O2 Saturation ABG Base Excess POC ABG pCO2 ABG Hemoglobin ABG Oxyhemoglobin Oxyhemoglobin Sodium Potassium Chloride Carbon Dioxide BUN Creatinine Glucose POC Glucose 192 H 151 H Lactic Acid Calcium Phosphorus Magnesium AST ALT Lactate Dehydrogenase CK-MB (CK-2) C-Reactive Protein NT-Pro-B Natriuret Pep Total Protein Albumin Urine WBC (Auto) 12/24/19 12/24/19 12/24/19 05:34 12:13 16:50 WBC RBC Hgb Hct MCHC RDW MCH Lymph % (Auto) [place] % (Auto) [place] # Eos # Lymph # (Auto) [place] # (Auto) Eos # (Auto) Seg Neutrophils % Seg Neuts % (Manual) Baso # (Auto) Lymphocytes % (Manual) Monocytes % (Manual) Eosinophils % (Manual) Basophils % (Manual) Seg Neutrophils # Seg Neutrophils # Man Lymphocytes # (Manual) Monocytes # (Manual) Eosinophils # (Manual) Nucleated RBC % Basophils # (Manual) APTT Heparin Anti-Xa Level 0.16 L ABG pH POC ABG pO2 ABG pO2 ABG HCO3 ABG O2 Saturation ABG Base Excess POC ABG pCO2 ABG Hemoglobin ABG Oxyhemoglobin Oxyhemoglobin Sodium Potassium Chloride Carbon Dioxide BUN Creatinine Glucose POC Glucose 145 H 124 H Lactic Acid Calcium Phosphorus Magnesium AST ALT Lactate Dehydrogenase CK-MB (CK-2) C-Reactive Protein NT-Pro-B Natriuret Pep Total Protein Albumin Urine WBC (Auto) 12/24/19 12/25/19 12/25/19 17:53 00:14 04:18 WBC 12.9 H RBC 3.30 L Hgb 9.1 L Hct 28.8 L MCHC RDW 16.4 H MCH Lymph % (Auto) [place] % (Auto) 7.8 H [place] # Eos # Lymph # (Auto) [place] # (Auto) 1.0 H Eos # (Auto) Seg Neutrophils % 75.5 H Seg Neuts % (Manual) Baso # (Auto) Lymphocytes % (Manual) Monocytes % (Manual) Eosinophils % (Manual) Basophils % (Manual) Seg Neutrophils # 9.7 H Seg Neutrophils # Man Lymphocytes # (Manual) Monocytes # (Manual) Eosinophils # (Manual) Nucleated RBC % Basophils # (Manual) APTT Heparin Anti-Xa Level ABG pH POC ABG pO2 ABG pO2 ABG HCO3 ABG O2 Saturation ABG Base Excess POC ABG pCO2 ABG Hemoglobin ABG Oxyhemoglobin Oxyhemoglobin Sodium Potassium Chloride Carbon Dioxide BUN Creatinine Glucose POC Glucose 164 H 148 H Lactic Acid Calcium Phosphorus Magnesium AST ALT Lactate Dehydrogenase CK-MB (CK-2) C-Reactive Protein NT-Pro-B Natriuret Pep Total Protein Albumin Urine WBC (Auto) 12/25/19 12/25/19 12/25/19 04:18 05:38 11:44 WBC RBC Hgb Hct MCHC RDW MCH Lymph % (Auto) [place] % (Auto) [place] # Eos # Lymph # (Auto) [place] # (Auto) Eos # (Auto) Seg Neutrophils % Seg Neuts % (Manual) Baso # (Auto) Lymphocytes % (Manual) Monocytes % (Manual) Eosinophils % (Manual) Basophils % (Manual) Seg Neutrophils # Seg Neutrophils # Man Lymphocytes # (Manual) Monocytes # (Manual) Eosinophils # (Manual) Nucleated RBC % Basophils # (Manual) APTT Heparin Anti-Xa Level ABG pH POC ABG pO2 ABG pO2 ABG HCO3 ABG O2 Saturation ABG Base Excess POC ABG pCO2 ABG Hemoglobin ABG Oxyhemoglobin Oxyhemoglobin Sodium Potassium Chloride Carbon Dioxide 33 H BUN 27 H Creatinine 0.6 L Glucose 132 H POC Glucose 152 H 166 H Lactic Acid Calcium Phosphorus Magnesium AST ALT Lactate Dehydrogenase CK-MB (CK-2) C-Reactive Protein NT-Pro-B Natriuret Pep Total Protein Albumin Urine WBC (Auto) 12/25/19 12/26/19 12/26/19 18:29 00:17 00:18 WBC RBC Hgb Hct MCHC RDW MCH Lymph % (Auto) [place] % (Auto) [place] # Eos # Lymph # (Auto) [place] # (Auto) Eos # (Auto) Seg Neutrophils % Seg Neuts % (Manual) Baso # (Auto) Lymphocytes % (Manual) Monocytes % (Manual) Eosinophils % (Manual) Basophils % (Manual) Seg Neutrophils # Seg Neutrophils # Man Lymphocytes # (Manual) Monocytes # (Manual) Eosinophils # (Manual) Nucleated RBC % Basophils # (Manual) APTT Heparin Anti-Xa Level ABG pH POC ABG pO2 ABG pO2 ABG HCO3 ABG O2 Saturation ABG Base Excess POC ABG pCO2 ABG Hemoglobin ABG Oxyhemoglobin Oxyhemoglobin Sodium Potassium Chloride 97.8 L Carbon Dioxide BUN 25 H Creatinine 0.6 L Glucose 140 H POC Glucose 194 H 151 H Lactic Acid Calcium Phosphorus Magnesium AST ALT Lactate Dehydrogenase CK-MB (CK-2) C-Reactive Protein NT-Pro-B Natriuret Pep Total Protein Albumin Urine WBC (Auto) 12/26/19 12/26/19 12/26/19 05:36 11:41 17:50 WBC RBC Hgb Hct MCHC RDW MCH Lymph % (Auto) [place] % (Auto) [place] # Eos # Lymph # (Auto) [place] # (Auto) Eos # (Auto) Seg Neutrophils % Seg Neuts % (Manual) Baso # (Auto) Lymphocytes % (Manual) Monocytes % (Manual) Eosinophils % (Manual) Basophils % (Manual) Seg Neutrophils # Seg Neutrophils # Man Lymphocytes # (Manual) Monocytes # (Manual) Eosinophils # (Manual) Nucleated RBC % Basophils # (Manual) APTT Heparin Anti-Xa Level ABG pH POC ABG pO2 ABG pO2 ABG HCO3 ABG O2 Saturation ABG Base Excess POC ABG pCO2 ABG Hemoglobin ABG Oxyhemoglobin Oxyhemoglobin Sodium Potassium Chloride Carbon Dioxide BUN Creatinine Glucose POC Glucose 156 H 148 H 139 H Lactic Acid Calcium Phosphorus Magnesium AST ALT Lactate Dehydrogenase CK-MB (CK-2) C-Reactive Protein NT-Pro-B Natriuret Pep Total Protein Albumin Urine WBC (Auto) 12/26/19 12/27/19 12/27/19 23:19 05:34 12:02 WBC RBC Hgb Hct MCHC RDW MCH Lymph % (Auto) [place] % (Auto) [place] # Eos # Lymph # (Auto) [place] # (Auto) Eos # (Auto) Seg Neutrophils % Seg Neuts % (Manual) Baso # (Auto) Lymphocytes % (Manual) Monocytes % (Manual) Eosinophils % (Manual) Basophils % (Manual) Seg Neutrophils # Seg Neutrophils # Man Lymphocytes # (Manual) Monocytes # (Manual) Eosinophils # (Manual) Nucleated RBC % Basophils # (Manual) APTT Heparin Anti-Xa Level ABG pH POC ABG pO2 ABG pO2 ABG HCO3 ABG O2 Saturation ABG Base Excess POC ABG pCO2 ABG Hemoglobin ABG Oxyhemoglobin Oxyhemoglobin Sodium Potassium Chloride Carbon Dioxide BUN Creatinine Glucose POC Glucose 161 H 145 H 157 H Lactic Acid Calcium Phosphorus Magnesium AST ALT Lactate Dehydrogenase CK-MB (CK-2) C-Reactive Protein NT-Pro-B Natriuret Pep Total Protein Albumin Urine WBC (Auto) 12/27/19 12/27/19 12/27/19 17:35 20:11 23:00 WBC RBC Hgb Hct MCHC RDW MCH Lymph % (Auto) [place] % (Auto) [place] # Eos # Lymph # (Auto) [place] # (Auto) Eos # (Auto) Seg Neutrophils % Seg Neuts % (Manual) Baso # (Auto) Lymphocytes % (Manual) Monocytes % (Manual) Eosinophils % (Manual) Basophils % (Manual) Seg Neutrophils # Seg Neutrophils # Man Lymphocytes # (Manual) Monocytes # (Manual) Eosinophils # (Manual) Nucleated RBC % Basophils # (Manual) APTT Heparin Anti-Xa Level 0.19 L ABG pH POC ABG pO2 ABG pO2 ABG HCO3 ABG O2 Saturation ABG Base Excess POC ABG pCO2 ABG Hemoglobin ABG Oxyhemoglobin Oxyhemoglobin Sodium Potassium Chloride Carbon Dioxide BUN Creatinine Glucose POC Glucose 158 H 155 H Lactic Acid Calcium Phosphorus Magnesium AST ALT Lactate Dehydrogenase CK-MB (CK-2) C-Reactive Protein NT-Pro-B Natriuret Pep Total Protein Albumin Urine WBC (Auto) 12/27/19 12/28/19 12/28/19 23:45 02:41 02:41 WBC 13.0 H RBC 3.48 L Hgb 9.5 L Hct 30.6 L MCHC 31 L RDW 16.6 H MCH 27 L Lymph % (Auto) 13.0 L [place] % (Auto) 8.0 H [place] # Eos # Lymph # (Auto) [place] # (Auto) 1.0 H Eos # (Auto) Seg Neutrophils % 76.3 H Seg Neuts % (Manual) Baso # (Auto) Lymphocytes % (Manual) Monocytes % (Manual) Eosinophils % (Manual) Basophils % (Manual) Seg Neutrophils # 9.9 H Seg Neutrophils # Man Lymphocytes # (Manual) Monocytes # (Manual) Eosinophils # (Manual) Nucleated RBC % Basophils # (Manual) APTT Heparin Anti-Xa Level ABG pH POC ABG pO2 ABG pO2 ABG HCO3 ABG O2 Saturation ABG Base Excess POC ABG pCO2 ABG Hemoglobin ABG Oxyhemoglobin Oxyhemoglobin Sodium Potassium Chloride Carbon Dioxide BUN 22 H Creatinine 0.6 L Glucose 101 H POC Glucose 130 H Lactic Acid Calcium Phosphorus Magnesium AST ALT Lactate Dehydrogenase CK-MB (CK-2) C-Reactive Protein NT-Pro-B Natriuret Pep Total Protein Albumin Urine WBC (Auto) 12/28/19 12/28/19 12/28/19 06:00 12:34 18:13 WBC RBC Hgb Hct MCHC RDW MCH Lymph % (Auto) [place] % (Auto) [place] # Eos # Lymph # (Auto) [place] # (Auto) Eos # (Auto) Seg Neutrophils % Seg Neuts % (Manual) Baso # (Auto) Lymphocytes % (Manual) Monocytes % (Manual) Eosinophils % (Manual) Basophils % (Manual) Seg Neutrophils # Seg Neutrophils # Man Lymphocytes # (Manual) Monocytes # (Manual) Eosinophils # (Manual) Nucleated RBC % Basophils # (Manual) APTT Heparin Anti-Xa Level ABG pH POC ABG pO2 ABG pO2 ABG HCO3 ABG O2 Saturation ABG Base Excess POC ABG pCO2 ABG Hemoglobin ABG Oxyhemoglobin Oxyhemoglobin Sodium Potassium Chloride Carbon Dioxide BUN Creatinine Glucose POC Glucose 150 H 161 H 128 H Lactic Acid Calcium Phosphorus Magnesium AST ALT Lactate Dehydrogenase CK-MB (CK-2) C-Reactive Protein NT-Pro-B Natriuret Pep Total Protein Albumin Urine WBC (Auto) 12/28/19 12/29/19 12/29/19 23:36 05:21 11:40 WBC RBC Hgb Hct MCHC RDW MCH Lymph % (Auto) [place] % (Auto) [place] # Eos # Lymph # (Auto) [place] # (Auto) Eos # (Auto) Seg Neutrophils % Seg Neuts % (Manual) Baso # (Auto) Lymphocytes % (Manual) Monocytes % (Manual) Eosinophils % (Manual) Basophils % (Manual) Seg Neutrophils # Seg Neutrophils # Man Lymphocytes # (Manual) Monocytes # (Manual) Eosinophils # (Manual) Nucleated RBC % Basophils # (Manual) APTT Heparin Anti-Xa Level ABG pH POC ABG pO2 ABG pO2 ABG HCO3 ABG O2 Saturation ABG Base Excess POC ABG pCO2 ABG Hemoglobin ABG Oxyhemoglobin Oxyhemoglobin Sodium Potassium Chloride Carbon Dioxide BUN Creatinine Glucose POC Glucose 137 H 136 H 166 H Lactic Acid Calcium Phosphorus Magnesium AST ALT Lactate Dehydrogenase CK-MB (CK-2) C-Reactive Protein NT-Pro-B Natriuret Pep Total Protein Albumin Urine WBC (Auto) 12/29/19 12/29/19 12/29/19 17:23 19:21 23:38 WBC RBC Hgb Hct MCHC RDW MCH Lymph % (Auto) [place] % (Auto) [place] # Eos # Lymph # (Auto) [place] # (Auto) Eos # (Auto) Seg Neutrophils % Seg Neuts % (Manual) Baso # (Auto) Lymphocytes % (Manual) Monocytes % (Manual) Eosinophils % (Manual) Basophils % (Manual) Seg Neutrophils # Seg Neutrophils # Man Lymphocytes # (Manual) Monocytes # (Manual) Eosinophils # (Manual) Nucleated RBC % Basophils # (Manual) APTT Heparin Anti-Xa Level 0.20 L ABG pH POC ABG pO2 ABG pO2 ABG HCO3 ABG O2 Saturation ABG Base Excess POC ABG pCO2 ABG Hemoglobin ABG Oxyhemoglobin Oxyhemoglobin Sodium Potassium Chloride Carbon Dioxide BUN Creatinine Glucose POC Glucose 144 H 141 H Lactic Acid Calcium Phosphorus Magnesium AST ALT Lactate Dehydrogenase CK-MB (CK-2) C-Reactive Protein NT-Pro-B Natriuret Pep Total Protein Albumin Urine WBC (Auto) 12/30/19 12/30/19 12/30/19 03:58 03:58 04:59 WBC RBC 3.54 L Hgb 9.8 L Hct 30.7 L MCHC RDW 16.8 H MCH Lymph % (Auto) [place] % (Auto) [place] # Eos # Lymph # (Auto) [place] # (Auto) Eos # (Auto) Seg Neutrophils % Seg Neuts % (Manual) Baso # (Auto) Lymphocytes % (Manual) Monocytes % (Manual) Eosinophils % (Manual) Basophils % (Manual) Seg Neutrophils # Seg Neutrophils # Man Lymphocytes # (Manual) Monocytes # (Manual) Eosinophils # (Manual) Nucleated RBC % Basophils # (Manual) APTT Heparin Anti-Xa Level ABG pH POC ABG pO2 ABG pO2 ABG HCO3 29.8 H ABG O2 Saturation ABG Base Excess 4.8 H POC ABG pCO2 ABG Hemoglobin 11.2 L ABG Oxyhemoglobin Oxyhemoglobin 93.8 L Sodium Potassium Chloride 97.8 L Carbon Dioxide BUN 26 H Creatinine Glucose 168 H POC Glucose Lactic Acid Calcium Phosphorus Magnesium AST ALT Lactate Dehydrogenase CK-MB (CK-2) C-Reactive Protein NT-Pro-B Natriuret Pep Total Protein Albumin Urine WBC (Auto) 12/30/19 12/30/19 12/30/19 05:45 11:34 17:28 WBC RBC Hgb Hct MCHC RDW MCH Lymph % (Auto) [place] % (Auto) [place] # Eos # Lymph # (Auto) [place] # (Auto) Eos # (Auto) Seg Neutrophils % Seg Neuts % (Manual) Baso # (Auto) Lymphocytes % (Manual) Monocytes % (Manual) Eosinophils % (Manual) Basophils % (Manual) Seg Neutrophils # Seg Neutrophils # Man Lymphocytes # (Manual) Monocytes # (Manual) Eosinophils # (Manual) Nucleated RBC % Basophils # (Manual) APTT Heparin Anti-Xa Level ABG pH POC ABG pO2 ABG pO2 ABG HCO3 ABG O2 Saturation ABG Base Excess POC ABG pCO2 ABG Hemoglobin ABG Oxyhemoglobin Oxyhemoglobin Sodium Potassium Chloride Carbon Dioxide BUN Creatinine Glucose POC Glucose 163 H 180 H 150 H Lactic Acid Calcium Phosphorus Magnesium AST ALT Lactate Dehydrogenase CK-MB (CK-2) C-Reactive Protein NT-Pro-B Natriuret Pep Total Protein Albumin Urine WBC (Auto) 12/30/19 12/31/19 12/31/19 23:43 04:55 05:07 WBC RBC Hgb Hct MCHC RDW MCH Lymph % (Auto) [place] % (Auto) [place] # Eos # Lymph # (Auto) [place] # (Auto) Eos # (Auto) Seg Neutrophils % Seg Neuts % (Manual) Baso # (Auto) Lymphocytes % (Manual) Monocytes % (Manual) Eosinophils % (Manual) Basophils % (Manual) Seg Neutrophils # Seg Neutrophils # Man Lymphocytes # (Manual) Monocytes # (Manual) Eosinophils # (Manual) Nucleated RBC % Basophils # (Manual) APTT Heparin Anti-Xa Level ABG pH POC ABG pO2 ABG pO2 ABG HCO3 ABG O2 Saturation ABG Base Excess POC ABG pCO2 ABG Hemoglobin ABG Oxyhemoglobin Oxyhemoglobin Sodium Potassium 5.6 H D Chloride Carbon Dioxide BUN 33 H Creatinine Glucose 131 H POC Glucose 142 H 134 H Lactic Acid Calcium Phosphorus Magnesium AST ALT Lactate Dehydrogenase CK-MB (CK-2) C-Reactive Protein NT-Pro-B Natriuret Pep Total Protein Albumin Urine WBC (Auto) 12/31/19 12/31/19 12/31/19 11:30 17:19 17:36 WBC RBC Hgb Hct MCHC RDW MCH Lymph % (Auto) [place] % (Auto) [place] # Eos # Lymph # (Auto) [place] # (Auto) Eos # (Auto) Seg Neutrophils % Seg Neuts % (Manual) Baso # (Auto) Lymphocytes % (Manual) Monocytes % (Manual) Eosinophils % (Manual) Basophils % (Manual) Seg Neutrophils # Seg Neutrophils # Man Lymphocytes # (Manual) Monocytes # (Manual) Eosinophils # (Manual) Nucleated RBC % Basophils # (Manual) APTT Heparin Anti-Xa Level ABG pH POC ABG pO2 ABG pO2 ABG HCO3 ABG O2 Saturation ABG Base Excess POC ABG pCO2 ABG Hemoglobin ABG Oxyhemoglobin Oxyhemoglobin Sodium Potassium Chloride Carbon Dioxide BUN 35 H Creatinine Glucose 156 H POC Glucose 158 H 181 H Lactic Acid Calcium Phosphorus Magnesium AST ALT Lactate Dehydrogenase CK-MB (CK-2) C-Reactive Protein NT-Pro-B Natriuret Pep Total Protein Albumin Urine WBC (Auto) 12/31/19 12/31/19 12/31/19 18:16 19:41 21:53 WBC RBC Hgb Hct MCHC RDW MCH Lymph % (Auto) [place] % (Auto) [place] # Eos # Lymph # (Auto) [place] # (Auto) Eos # (Auto) Seg Neutrophils % Seg Neuts % (Manual) Baso # (Auto) Lymphocytes % (Manual) Monocytes % (Manual) Eosinophils % (Manual) Basophils % (Manual) Seg Neutrophils # Seg Neutrophils # Man Lymphocytes # (Manual) Monocytes # (Manual) Eosinophils # (Manual) Nucleated RBC % Basophils # (Manual) APTT Heparin Anti-Xa Level 0.20 L ABG pH POC ABG pO2 ABG pO2 ABG HCO3 ABG O2 Saturation ABG Base Excess POC ABG pCO2 ABG Hemoglobin ABG Oxyhemoglobin Oxyhemoglobin Sodium Potassium Chloride Carbon Dioxide BUN 34 H Creatinine Glucose 169 H POC Glucose 141 H Lactic Acid Calcium Phosphorus Magnesium AST ALT Lactate Dehydrogenase CK-MB (CK-2) C-Reactive Protein NT-Pro-B Natriuret Pep Total Protein Albumin Urine WBC (Auto) 12/31/19 01/01/20 01/01/20 23:51 05:17 10:40 WBC RBC Hgb Hct MCHC RDW MCH Lymph % (Auto) [place] % (Auto) [place] # Eos # Lymph # (Auto) [place] # (Auto) Eos # (Auto) Seg Neutrophils % Seg Neuts % (Manual) Baso # (Auto) Lymphocytes % (Manual) Monocytes % (Manual) Eosinophils % (Manual) Basophils % (Manual) Seg Neutrophils # Seg Neutrophils # Man Lymphocytes # (Manual) Monocytes # (Manual) Eosinophils # (Manual) Nucleated RBC % Basophils # (Manual) APTT Heparin Anti-Xa Level ABG pH POC ABG pO2 ABG pO2 ABG HCO3 ABG O2 Saturation ABG Base Excess POC ABG pCO2 ABG Hemoglobin ABG Oxyhemoglobin Oxyhemoglobin Sodium Potassium Chloride Carbon Dioxide BUN 31 H Creatinine 0.7 L Glucose 137 H POC Glucose 131 H 155 H Lactic Acid Calcium Phosphorus Magnesium AST 73 H ALT 97 H Lactate Dehydrogenase CK-MB (CK-2) C-Reactive Protein NT-Pro-B Natriuret Pep 3866 H Total Protein Albumin 2.8 L Urine WBC (Auto) 01/01/20 01/01/20 01/01/20 12:26 15:33 17:53 WBC 14.3 H RBC 3.35 L Hgb 9.1 L Hct 28.8 L MCHC RDW 17.0 H MCH 27 L Lymph % (Auto) 7.0 L [place] % (Auto) 7.6 H [place] # Eos # Lymph # (Auto) 1.0 L [place] # (Auto) 1.1 H Eos # (Auto) Seg Neutrophils % 83.3 H Seg Neuts % (Manual) Baso # (Auto) Lymphocytes % (Manual) Monocytes % (Manual) Eosinophils % (Manual) Basophils % (Manual) Seg Neutrophils # 12.0 H Seg Neutrophils # Man Lymphocytes # (Manual) Monocytes # (Manual) Eosinophils # (Manual) Nucleated RBC % Basophils # (Manual) APTT Heparin Anti-Xa Level ABG pH POC ABG pO2 ABG pO2 ABG HCO3 ABG O2 Saturation ABG Base Excess POC ABG pCO2 ABG Hemoglobin ABG Oxyhemoglobin Oxyhemoglobin Sodium Potassium Chloride Carbon Dioxide BUN Creatinine Glucose POC Glucose 128 H 128 H Lactic Acid Calcium Phosphorus Magnesium AST ALT Lactate Dehydrogenase CK-MB (CK-2) C-Reactive Protein NT-Pro-B Natriuret Pep Total Protein Albumin Urine WBC (Auto) 01/01/20 01/02/20 01/02/20 23:04 05:39 07:00 WBC RBC Hgb Hct MCHC RDW MCH Lymph % (Auto) [place] % (Auto) [place] # Eos # Lymph # (Auto) [place] # (Auto) Eos # (Auto) Seg Neutrophils % Seg Neuts % (Manual) Baso # (Auto) Lymphocytes % (Manual) Monocytes % (Manual) Eosinophils % (Manual) Basophils % (Manual) Seg Neutrophils # Seg Neutrophils # Man Lymphocytes # (Manual) Monocytes # (Manual) Eosinophils # (Manual) Nucleated RBC % Basophils # (Manual) APTT Heparin Anti-Xa Level 0.13 L ABG pH POC ABG pO2 ABG pO2 ABG HCO3 ABG O2 Saturation ABG Base Excess POC ABG pCO2 ABG Hemoglobin ABG Oxyhemoglobin Oxyhemoglobin Sodium Potassium Chloride Carbon Dioxide BUN Creatinine Glucose POC Glucose 120 H 169 H Lactic Acid Calcium Phosphorus Magnesium AST ALT Lactate Dehydrogenase CK-MB (CK-2) C-Reactive Protein NT-Pro-B Natriuret Pep Total Protein Albumin Urine WBC (Auto) Chest x-ray: image reviewed (Bilateral alveolar infitrates, appears worse) Allied health notes reviewed: RT
[2020-01-02] MEDS: HEPARIN/ 0.45% NACL DRIP 25,000 UNIT/500 ML BAG IV SCH (12:31)
[2020-01-02] MEDS: VANCOMYCIN 1,750 MG in SODIUM CHLORIDE 0.9% 500 ML 500 ML IV SCH (12:31)
--- NOTE | 2020-01-02 15:06 | Progress Note ---
Assessment and Plan Assessment and plan: -Acute LLL PE -Acute RLE DVT -Persistent fevers; secondary to sepsis and acute PE/DVT -Severe sepsis; secondary to bilateral pneumonia, persistent fevers -Acute hypoxemic respiratory failure, on vent unable to wean -Bilateral pneumonia, community acquired, -Aspiration Pneumonia -Sustained SVT, on amiodarone -Acute on chronic systolic congestive heart failure -History of cerebrovascular accident. -Tobacco use disorder -Alcohol abuse with DT -Acute chronic obstructive pulmonary disease exacerbation. -Hypertension and hypertensive urgency at presentation. -History of arthritis. -Paroxysmal atrial fibrillation -Leukocytosis with possible sepsis. -Lactic acidosis. -Bleeding from ET tube -Oropharyngeal dysphagia -S/P Knee surgery -History of peptic Ulcer Surgery -DVT prophylaxis COVID-19 test; 11/24/2019; negative 11/26/2019; negative Plan Continue ventilatory support - Now s/p trach and PEG Wean as tolerated as per critical care Aspiration precautions Continue amiodarone and metoprolol for suppression of paroxysmal atrial fibrillation. Continue anticoagulation Started on vancomycin and zosyn BC 03/28 - coag negative staph ?contaminant. Sputum cultures pending. Low-dose Lasix for now DVT/GI prophy Heparin/Protonix Plan of care reviewed with the patient's nurse Closely monitor the patient and adjust management as needed The high probability of a clinically significant, sudden or life threatening deterioration of the [Respiratory, cardiovascular & neurological] system(s) required my full and direct attention, intervention and personal management. The aggregate critical care time was [33] minutes without overlap. Time includes spent on [x] Data Review and interpretation [x] Patient assessment and monitoring of vital signs [x] Documentation [x] Medication orders and management Brief History Patient is a 64-year-old male with known history of hypertension, COPD, history of coronary artery disease, CHF with ejection fraction of 20 to 25% in August 2018 presenting to the emergency room via EMS complaining of shortness of breath. Patient was found to be hypoxic and in respiratory distress. Patient was placed on CPAP in route to the hospital. Oxygen saturation was said to be 88%. Sta rted on Solu-Medrol, Lasix and magnesium in ED, patient was also found to be lethargic with an oxygen saturation of about 91% on CPAP. He was subsequently intubated. Work-up in the emergency room including chest x-ray reveals bilateral pneumonia. He had an elevated white count of 14 and also had an elevated BNP. Patient admitted to the ICU and placed on empiric IV antibiotics for pneumonia. He tested negative for COVID-19 and placed on isolation precautions. Remains intubated on ventilatory support, sputum cultures positive for Pseudomonas, ID treated with cefepime and Vanco. His hospital course became complicated with acute PE, DVT, paroxysmal atrial fib - placed on heparin drip. Patient difficult to wean off, remains intubated. 11/25: Leukocytosis improving. Continue current management anticipate extubation possible today. 11/26. Still intubated. Failed SBT yesterday. Repeat COVID-19 test is negative. 11/27. CT head ordered for possible neuro status change is negative. More responsi ve as the day progressed as per RN. Chest xray today shows interval improvement. He is still on antibiotics - will complete regimen today. 11/28: Considering difficult extubation and severe cardiomyopathy, will obtain cardiology consult. Aspiration precautions, tube feeds held, continue antibiotics. 11/29: Still with intermittent fever but improving imaging, continue diuresis. 11/30; Extremely agitated when placed on PSV- SVT, hypertension. Patiet acknowledged that he drinks. IV Ativan given, CIWA protocol initiated. 12 lead ordered showed SVT, one dose of amiodarone ordered. continue to follow up cardiology recommendation 12/01: Patient remains on mechanical ventilation, getting SBT trial. Remains in SVT, started on amiodarone drip by cardiology. 12/02; patient is on mechanical ventilation and on spontaneous breathing trial. Cardiology started the patient on PO amiodarone. Patient is on cefepime. 12/03: patient is on mechanical ventilation. Cardiology started the patient on PO amiodarone for SVT. Patient is on cefepime, no fever overnight. 12/04: Patient is sedated and on mechanical ventilation. Patient had fever yesterday afternoon 102.3, ID changed his cefepime to meropenem. Heart rate is controlled, cardiology is following. Patient has paroxysmal atrial fibrillation and on amiodarone and metoprolol, subcu heparin for anticoagulation and will need oral anticoagulation once stable. 12/05: Sputum cultures positive for Pseudomonas, ID following 12/06; patient is febrile T-max 24 hours 102 F ,ID change antibiotics to cefepime and Vancomycin 12/07: resumed care. Na 149 today, start on 1/2 NS. cont current care 12/08: remains in a stable sinus rhythm and stable blood pressure, continue supportive care. wean off vent as tolerated. persistent fever - ordered CTA chest 12/09: noted bloody discharges from ET tube last night. CTA and LE venous doppler positive for acute PE and DVT. resume heparin drip, consult vascular for possible EKOS/ IVC filter. monitor h/h. cont SBT trial, wean off vent as tolerated. called but no answer 12/10: cont heparin drip for acute PE and DVT, follow vascular recommendation. monitor h/h, wean off vent as tolerated 12/11: o/n had bleeding from ET tube, cont to monitor h/h. vascular recommending medical Mx. called ; Nicolle Araiza [phone]. 12/12: H&H remained stable, patient on heparin drip. Discussed with yesterday. Discussed with critical care attending. Patient not tolerating SBT trial. Continue to wean off from vent as tolerated, follow clinically. Tolerating tube feeding 12/13: Continue heparin drip, wean off from vent as tolerated. Discussed with pulmonary attending if no improvement by the end of 3 weeks of intubation patient may need trach and PEG. Continue to provide supportive care, follow CBC and BMP. 12/14: Stop cefepime today, wean off from vent as tolerated. cont Heparin infusion, while monitoring for bleeding 12/15: Patient is not tolerating SBT trial, becoming apnic on CPAP. May need to place on trach and PEG. Continue heparin drip, monitor off antibiotics 12/16. Still maintained on vent. May need PEG and trach as her has been failed SBTs 12/17. Had low UO overnight. Started on tamsulosin. May need PEG and trach - defer to pulm. 12/18-. Plan for US thoracentesis to help with weaning. Remains on heparin drip for VTE. 12/20. Discussed with spouse today. He will get thoracentesis today. INR/PTT ordered. Heparin drip held. 12/21: planned for trach and PEG, cont supportive care, thoracentesis cancelled 12/22: cont supportive care, wean off from vent, daily SBT 12/23: tolerating SBT, possible extubation soon. cont supportive care 12/24: wean off vent as tolerated, daily SBT, follow clinically 12/25; cont to monitor, wean off vent as tolerated 12/26: Continue to monitor wean off vent as tolerated patient is tolerating SBT trial but not ready to wean off. 12/27: need trach and PEG, will f/u with GS, cont supportive care 12/28: pending trach/PEG 12/29: plan for trach and PEG on Saturday 12/30: Plan for trach and PEG. Temp 101F. Blood cultures, urinalysis and chest xray ordered. 12/31. Had afib with RVR overnight. Metoprolol dose has been increased. He is still on amiodarone. Plan for PEG tube placement today. Repeat chest x-ray shows worsening infiltrates. Started on the Lasix. Monitor fever now. Blood cultures negative so far. Urinalysis pending 01/01. Started on antibiotics as he had another fever. On vancomycin and zosyn. ID consulted. HR still in the 100s. Had trach and PEG placement on 12/31 with no complications. BC 03/28 - Coag negative staph? contaminant. History Interval history: No change in medical condition. Still remains intubated. COVID-19 test negative. Had trach and PEG placed yesterday. Hospitalist Physical - Constitutional Vitals: Temp Pulse Resp BP Pulse Ox 98.8 F 137 H 18 100/74 99 01/02/20 12:00 01/02/20 12:00 01/02/20 12:00 01/02/20 12:00 01/02/20 12:00 General appearance: Present: well-nourished, other (Sedated) - Neck Neck: Present: supple, other (Trach in place) - Respiratory Respiratory: bilateral: rales - Cardiovascular Heart Sounds: Present: S1 & S2 - Extremities Extremity abnormal: edema - Abdominal General gastrointestinal: soft, non-tender, non-distended, normal bowel sounds - Neurologic Neurologic: other (Sedated) HEART Score - HEART Score Troponin: Troponin T < 0.010 ng/mL (0.00-0.029) 11/24/19 02:53 Results - Labs CBC & Chem 7: 01/01/20 15:33 01/01/20 10:40 Labs: Laboratory Last Values WBC 14.3 K/mm3 (4.5-11.0) H 01/01/20 15:33 RBC 3.35 M/mm3 (3.65-5.03) L 01/01/20 15:33 Hgb 9.1 gm/dl (11.8-15.2) L 01/01/20 15:33 Hct 28.8 % (35.5-45.6) L 01/01/20 15:33 MCV 86 fl (84-94) 01/01/20 15: MCH 27 pg (28-32) L 01/01/20 15: MCHC 32 % (32-34) 01/01/20 15: RDW 17.0 % (13.2-15.2) H 01/01/20 15: Plt Count 219 K/mm3 (140-440) 01/01/20 15: Lymph % (Auto) 7.0 % (13.4-35.0) L 01/01/20 15:33 [place] % (Auto) 7.6 % (0.0-7.3) H 01/01/20 15: Eos % (Auto) 1.2 % (0.0-4.3) 01/01/20 15:33 Baso % (Auto) 0.9 % (0.0-1.8) 01/01/20 15: Lymph # (Auto) 1.0 K/mm3 (1.2-5.4) L 01/01/20 15:33 [place] # (Auto) 1.1 K/mm3 (0.0-0.8) H 01/01/20 15: Eos # (Auto) 0.2 K/mm3 (0.0-0.4) 01/01/20 15:33 Baso # (Auto) 0.1 K/mm3 (0.0-0.1) 01/01/20 15:33 Add Manual Diff Complete 12/19/19 11:32 Total Counted 100 12/19/19 11:32 Seg Neutrophils % 83.3 % (40.0-70.0) H 01/01/20 15:33 Seg Neuts % (Manual) 82.0 % (40.0-70.0) H 12/19/19 11:32 Band Neutrophils % 0 % 12/19/19 11:32 Lymphocytes % (Manual) 10.0 % (13.4-35.0) L 12/19/19 11:32 Reactive Lymphs % (Man) 0 % 12/19/19 11:32 Monocytes % (Manual) 6.0 % (0.0-7.3) 12/19/19 11:32 Eosinophils % (Manual) 2.0 % (0.0-4.3) 12/19/19 11:32 Basophils % (Manual) 0 % (0.0-1.8) 12/19/19 11:32 Metamyelocytes % 0 % 12/19/19 11:32 Myelocytes % 0 % 12/19/19 11:32 Promyelocytes % 0 % 12/19/19 11:32 Blast Cells % 0 % 12/19/19 11:32 Nucleated RBC % 1.0 % (0.0-0.9) H 12/19/19 11:32 Seg Neutrophils # 12.0 K/mm3 (1.8-7.7) H 01/01/20 15:33 Seg Neutrophils # Man 12.0 K/mm3 (1.8-7.7) H 12/19/19 11:32 Band Neutrophils # 0.0 K/mm3 12/19/19 11:32 Lymphocytes # (Manual) 1.5 K/mm3 (1.2-5.4) 12/19/19 11:32 Abs React Lymphs (Man) 0.0 K/mm3 12/19/19 11:32 Monocytes # (Manual) 0.9 K/mm3 (0.0-0.8) H 12/19/19 11:32 Eosinophils # (Manual) 0.3 K/mm3 (0.0-0.4) 12/19/19 11:32 Basophils # (Manual) 0.0 K/mm3 (0.0-0.1) 12/19/19 11:32 Metamyelocytes # 0.0 K/mm3 12/19/19 11:32 Myelocytes # 0.0 K/mm3 12/19/19 11:32 Promyelocytes # 0.0 K/mm3 12/19/19 11:32 Blast Cells # 0.0 K/mm3 12/19/19 11:32 WBC Morphology Not Reportable 12/19/19 11:32 Hypersegmented Neuts Not Reportable 12/19/19 11:32 Hyposegmented Neuts Not Reportable 12/19/19 11:32 Hypogranular Neuts Not Reportable 12/19/19 11:32 Smudge Cells Not Reportable 12/19/19 11:32 Toxic Granulation Not Reportable 12/19/19 11:32 Toxic Vacuolation Not Reportable 12/19/19 11:32 Dohle Bodies Not Reportable 12/19/19 11:32 Pelger-Huet Anomaly Not Reportable 12/19/19 11:32 Hector Rods Not Reportable 12/19/19 11:32 Platelet Estimate Consistent w auto 12/19/19 11:32 Clumped Platelets Not Reportable 12/19/19 11:32 Plt Clumps, EDTA Not Reportable 12/19/19 11:32 Large Platelets Not Reportable 12/19/19 11:32 Giant Platelets Not Reportable 12/19/19 11:32 Platelet Satelliting Not Reportable 12/19/19 11:32 Plt Morphology Comment Not Reportable 12/19/19 11:32 RBC Morphology Not Reportable 12/19/19 11:32 Dimorphic RBCs Not Reportable 12/19/19 11:32 Polychromasia Not Reportable 12/19/19 11:32 Hypochromasia Few 12/19/19 11:32 Poikilocytosis Not Reportable 12/19/19 11:32 Anisocytosis 1+ 12/19/19 11:32 Microcytosis Few 12/19/19 11:32 Macrocytosis Few 12/19/19 11:32 Spherocytes Not Reportable 12/19/19 11:32 Pappenheimer Bodies Not Reportable 12/19/19 11:32 Sickle Cells Not Reportable 12/19/19 11:32 Target Cells Not Reportable 12/19/19 11:32 Tear Drop Cells Not Reportable 12/19/19 11:32 Ovalocytes Not Reportable 12/19/19 11:32 Helmet Cells Not Reportable 12/19/19 11:32 [place] Bodies Not Reportable 12/19/19 11:32 [place] Rings Not Reportable 12/19/19 11:32 Oc Cells Not Reportable 12/19/19 11:32 Bite Cells Not Reportable 12/19/19 11:32 Crenated Cell Not Reportable 12/19/19 11:32 Elliptocytes Not Reportable 12/19/19 11:32 Acanthocytes (Spur) Not Reportable 12/19/19 11:32 Rouleaux Not Reportable 12/19/19 11:32 Hemoglobin C Crystals Not Reportable 12/19/19 11:32 Schistocytes Not Reportable 12/19/19 11:32 Malaria parasites Not Reportable 12/19/19 11:32 Clifford Bodies Not Reportable 12/19/19 11:32 Hem Pathologist Commnt No 12/19/19 11:32 PT 13.8 Sec. (12.2-14.9) 12/21/19 10:13 INR 1.05 (0.87-1.13) 12/21/19 10:13 APTT 23.9 Sec. (24.2-36.6) L 12/21/19 10:13 Heparin Anti-Xa Level < 0.10 U.I./ml (0.3-0.7) L 01/02/20 14:06 ABG pH 7.439 pH Units (7.350-7.450) 12/30/19 04:59 POC ABG pCO2 52.9 mmHg (32.0-48.0) H 12/22/19 03:22 ABG pCO2 45.0 mm Hg 12/30/19 04:59 POC ABG pO2 52.3 mmHg (83-108) L 12/22/19 03:22 ABG pO2 89.3 mm Hg (80.0-90.0) 12/30/19 04:59 POC ABG HCO3 33.4 12/22/19 03:22 ABG HCO3 29.8 mmol/L (20.0-26.0) H 12/30/19 04:59 ABG O2 Saturation 96.3 % (95.0-99.0) 12/30/19 04:59 ABG O2 Content 20.6 (0.0-44) 12/30/19 04:59 POC ABG Base Excess 7.7 12/22/19 03:22 ABG Base Excess 4.8 mmol/L (-2.0-3.0) H 12/30/19 04:59 ABG Hemoglobin 11.2 gm/dl (14.0-18.0) L 12/30/19 04:59 ABG Oxyhemoglobin 84 (94-98) L 12/22/19 03:22 ABG Carboxyhemoglobin 2.2 % (0.0-5.0) 12/30/19 04:59 ABG Methemoglobin 0.4 % (0.0-1.5) 12/30/19 04:59 Oxyhemoglobin 93.8 % (95.0-99.0) L 12/30/19 04:59 Carboxyhemoglobin 0.7 (0.5-1.5) 12/22/19 03:22 FiO2 40 % 12/30/19 04:59 Sodium 145 mmol/L (137-145) 01/01/20 10:40 Potassium 5.0 mmol/L (3.6-5.0) 01/01/20 10:40 Chloride 100.7 mmol/L (98-107) 01/01/20 10:40 Carbon Dioxide 27 mmol/L (22-30) 01/01/20 10:40 Anion Gap 22 mmol/L 01/01/20 10:40 BUN 31 mg/dL (9-20) H 01/01/20 10:40 Creatinine 0.7 mg/dL (0.8-1.3) L 01/01/20 10:40 Estimated GFR > 60 ml/min 01/01/20 10:40 BUN/Creatinine Ratio 44 % 01/01/20 10:40 Glucose 137 mg/dL (75-100) H 01/01/20 10:40 POC Glucose 169 (70-105) H 01/02/20 05:39 Lactic Acid 2.50 mmol/L (0.7-2.0) H* 11/24/19 10:37 Phosphorus 2.60 mg/dL (2.5-4.5) 12/06/19 05:24 Magnesium 2.60 mg/dL (1.7-2.3) H 12/07/19 12:41 Calcium 9.1 mg/dL (8.4-10.2) 01/01/20 10:40 Ferritin 84.4 ng/mL (30.0-300.0) 11/24/19 04:53 Direct Bilirubin < 0.2 mg/dL (0-0.2) 12/08/19 03:55 Indirect Bilirubin 0.2 mg/dL 12/08/19 03:55 Total Bilirubin 0.80 mg/dL (0.1-1.2) 01/01/20 10:40 Total Creatine Kinase 141 units/L (55-170) 11/24/19 02:53 CK-MB (CK-2) 4.3 ng/mL (0.0-4.0) H 11/24/19 02:53 AST 73 units/L (5-40) H 01/01/20 10:40 ALT 97 units/L (7-56) H 01/01/20 10:40 CK-MB (CK-2) Rel Index 3.0 (0-4) 11/24/19 02:53 Alkaline Phosphatase 71 units/L (35-129) 01/01/20 10:40 Troponin T < 0.010 ng/mL (0.00-0.029) 11/24/19 02:53 C-Reactive Protein 8.50 mg/dL (0.00-1.30) H 12/01/19 12:16 Lactate Dehydrogenase 228 units/L (91-180) H 12/19/19 04:45 NT-Pro-B Natriuret Pep 3866 pg/mL (0-900) H 01/01/20 10:40 Total Protein 7.0 g/dL (6.3-8.2) 01/01/20 10:40 Albumin 2.8 g/dL (3.9-5) L 01/01/20 10:40 Albumin/Globulin Ratio 0.7 % 01/01/20 10:40 Procalcitonin 0.76 ng/mL (<0.15) 01/01/20 10:40 Urine Color Cecy (Yellow) 12/31/19 18:04 Urine Turbidity Clear (Clear) 12/31/19 18:04 Urine pH 5.0 (5.0-7.0) 12/31/19 18:04 Ur Specific [place] 1.023 (1.003-1.030) 12/31/19 18:04 Urine Protein <15 mg/dl mg/dL (Negative) 12/31/19 18:04 Urine Glucose (UA) Neg mg/dL (Negative) 12/31/19 18:04 Urine Ketones Neg mg/dL (Negative) 12/31/19 18:04 Urine Blood Neg (Negative) 12/31/19 18:04 Urine Bacteria (Auto) 1+ /HPF (Negative) 12/03/19 06:03 Urine Nitrite Neg (Negative) 12/31/19 18:04 Urine Bilirubin Neg (Negative) 12/31/19 18:04 Urine Urobilinogen 4.0 mg/dL (<2.0) 12/31/19 18:04 Ur Leukocyte Esterase Neg (Negative) 12/31/19 18:04 Urine WBC (Auto) 2.0 /HPF (0.0-6.0) 12/31/19 18:04 Urine RBC (Auto) 3.0 /HPF (0.0-6.0) 12/31/19 18:04 U Epithel Cells (Auto) 2.0 /HPF (0-13.0) 12/31/19 18:04 Urine Mucus 1+ /HPF 12/31/19 18:04 Vancomycin Trough 14.2 ug/mL (5.0-20.0) 12/13/19 15:01 Coronavirus (PCR) Negative (Negative) 12/29/19 10:07 Microbiology: Microbiology 12/31/19 18:16 Peripheral/Venous Blood Culture - Preliminary Coag Negative Staphylococcus 12/31/19 18:16 Peripheral/Venous Blood Culture - Preliminary NO GROWTH AFTER 24 HOURS - Diagnostic Impressions Diagnostic Impressions: Echocardiogram 11/29/19 07:37 Transthoracic Echocardiogram Indication: CHF BP: 116/72 HR: 33 Conclusions *The study is technically limited due to poor acoustic windows. *Global left ventricular systolic function is normal. *The estimated ejection fraction is 50-55%. *Mild concentric left ventricular hypertrophy is observed. *There is trace of mitral regurgitation. *There is mild tricuspid regurgitation. Findings Procedure Info: The study quality is poor. The study is technically limited due to poor acoustic windows. The study is technically limited due to patient body habitus. Left Ventricle: The left ventricular chamber size is normal. Mild concentric left ventricular hypertrophy is observed. Global left ventricular systolic function is normal. The estimated ejection fraction is 50-55%. Left Atrium: The left atrial chamber size is normal. Right Ventricle: The right ventricular cavity size is normal. Right Atrium: The right atrial cavity size is normal. Aortic Valve: The aortic valve leaflets are moderately thickened. There is trace of aortic regurgitation. There is no evidence of aortic stenosis. Mitral Valve: The mitral valve leaflets are mildly thickened. There is trace of mitral regurgitation. There is no evidence of mitral stenosis. Tricuspid Valve: There is mild tricuspid regurgitation. No pulmonary hypertension is noted. Pulmonic Valve: There is trace pulmonic regurgitation. Pericardium: There is no pericardial effusion. Aorta: There is no dilatation of the aortic root. Venous: The inferior vena cava appears normal in size. Contrast: Definity was used to optimize study. Intravenous contrast was used to enhance endocardial border definition. Measurements Chambers 2D Name Value Normal Range Ao root diameter (2D) 3.4 cm (2 - 3.7) Aortic Valve Name Value Normal Range AV Vmax 0.98 m/sec - AV VTI 16.76 cm - AV peak gradient 3.83 mmHg - AV mean gradient 2.57 mmHg - LVOT diameter 3.11 cm - LVOT Vmax 0.68 m/sec - LVOT VTI 11.52 cm - LVOT peak gradient 1.84 mmHg - LVOT mean gradient 1.27 mmHg - SV LVOT 87.31 ml - MALOU (continuity Vmax) 5.24 cm2 - MALOU (continuity VTI) 5.21 cm2 - Tricuspid Valve Name Value Normal Range IVC diameter 2.24 cm (1.2 - 2.3) Hoffman/IV: Voiding Method Condom Catheter IV Catheter Type [Right Hand] INT / Saline Lock IV Catheter Type [Right Upper INT / Saline Lock arm] IV Catheter Type [Left Upper Mid-line arm] IV Catheter Type [Left Forearm Peripheral IV ] IV Catheter Type [Left Hand] INT / Saline Lock IV Catheter Type [Left Wrist] INT / Saline Lock IV Catheter Type [Right INT / Saline Lock Antecubital] Active Medications - Current Medications Current Medications: Generic Name Dose Route Start Last Admin Trade Name Freq PRN Reason Stop Dose Admin Acetaminophen 650 mg 12/31/19 11:43 01/02/20 03:20 Tylenol FEEDTUBE 650 mg Q6H PRN Administration Pain, Mild (1-3) Amiodarone HCl 200 mg 12/04/19 14:00 01/02/20 09:05 Cordarone PO 200 mg BID CAR Administration Lipase/Protease/Amylase 1 each 12/08/19 12:[address] 10,500 Unit FEEDTUBE PRN PRN For Clogged Feeding Tube Docusate Sodium 100 mg 12/02/19 22:00 01/02/20 09:04 Colace FEEDTUBE 100 mg BID CAR Administration Famotidine 20 mg 11/25/19 10:00 01/02/20 09:04 Pepcid PO 20 mg BID CAR Administration Fentanyl 50 mcg 12/30/19 10:46 01/02/20 10:06 Sublimaze IV 50 mcg Q10MIN PRN Administration ANALGESIA Furosemide 40 mg 01/01/20 10:00 01/02/20 09:05 Lasix IV 40 mg BID CAR Administration Haloperidol Lactate 5 mg 12/25/19 10:00 12/30/19 08:03 Haldol IV 5 mg Q6H PRN Administration Unrespon. to mult. doses BZD's Heparin Sodium/Sodium Chloride 25,000 unit in 500 mls @ 30 mls/hr 12/10/19 19:00 01/02/20 12:31 Heparin/ 0.45% Nacl-25,000 Unit/500 Ml IV 1,600 units/hr TITR CAR 32 mls/hr Administration Protocol 1,500 UNITS/HR Fentanyl Citrate 2,000 mcg in 100 mls @ 5.67 mls/hr 12/30/19 11:00 01/02/20 11:00 Fentanyl Drip Premix IV 2 mcg/kg/hr TITR CAR 11.34 mls/hr Administration Protocol 1 MCG/KG/HR Vancomycin HCl 1,750 mg/ 535 mls @ 333.333 mls/hr 01/02/20 12:00 01/02/20 12:31 Sodium Chloride IV 333.333 mls/hr Q12H CAR Administration Piperacillin Sod/Tazobactam Sod 4.5 gm in 100 mls @ 200 mls/hr 01/02/20 08:00 01/02/20 14:12 Zosyn/Ns 4.5gm/100ml IV 200 mls/hr Q8HR CAR Administration Protocol Insulin Human Lispro 0 unit 12/05/19 19:00 01/02/20 12:31 Humalog SUB-Q 1 unit Q6H CAR Administration Protocol Lorazepam 2 mg 12/25/19 10:00 12/30/19 19:30 Ativan IV 2 mg Q6H PRN Administration AGITATION Metoprolol Tartrate 50 mg 01/02/20 10:00 01/02/20 10:05 Metoprolol FEEDTUBE 50 mg Q6HR CAR Administration Polyethylene Glycol 17 gm 12/04/19 22:00 01/01/20 23:52 Miralax 3350 PO Not Given QHS CAR Quetiapine Fumarate 200 mg 12/24/19 13:00 01/02/20 09:05 Seroquel PO 200 mg BID CAR Administration Simple Syrup 15 ml 12/08/19 12:07 Simple Syrup FEEDTUBE PRN PRN Hypoglycemia Simple Syrup 30 ml 12/08/19 12:07 Simple Syrup FEEDTUBE PRN PRN Hypoglycemia Sodium Bicarbonate 325 mg 12/08/19 12:07 Sodium Bicarbonate FEEDTUBE PRN PRN For Clogged Feeding Tube Sodium Chloride 10 ml 11/24/19 10:00 01/02/20 09:05 Sodium Chloride Flush Syringe 10 Ml IV 10 ml BID CAR Administration Tamsulosin HCl 0.8 mg 12/20/19 22:00 01/01/20 21:37 Flomax PO 0.8 mg QHS CAR Administration Nutrition/Malnutrition Assess - Dietary Evaluation Nutrition/Malnutrition Findings: Nutrition Notes Start: 11/24/19 12:22 Freq: Status: Active Protocol: Document 12/30/19 11:51 ARISTIDES (Rec: 12/30/19 11:56 [email or web address]) Co-Sign 12/30/19 11:51 Nutrition Notes Initial or Follow up Reassessment Current Diagnosis Coronary Artery Disease,Heart Failure,Respiratory Failure, Stroke,Hyperlipidemia Current Diet TF Vital HP 65ml/hr Labs/Tests BUN 26 BG 128 Pertinent Medications Insulin Height 6 ft 2 in Weight 116.7 kg [place] Body Weight (kg) 86.36 BMI 33.0 Weight change and time frame Wt change noted Weight Status Obese Subjective/Other Information F/U for stable TF. Pt tolerating TF at 65 ml/hr. Percent of energy/protein needs met: 100%/79% Burn Absent Trauma Absent Current % PO Negligible Minimum of two criteria No Fluid Accumulation Mild (non-severe) #1 Nutrition Diagnosis Inadequate oral intake Diagnosis Progress(for reassessment Continues documentation) Is patient on ventilator? Yes Is Patient Ambulatory and/or Out of Bed No REE-([facility]-confined to bed) 2442.744 Kcal/Kg value to use for calculation 13 Approximate Energy Requirements Using 1517 kcal/Kg Calculation Used for Recommendations Kcal/kg Additional Notes Protein needs 173g (at least 2 g/kg IBW) Fluid needs 1.5-1.9L Nutrition Intervention Change Diet Order: Continue TF Nutrition Support: Vital HP at 65ml/hr Flush 100ml q4h Hypernatermia 250ml q4h Kcal 1,560 Protein (gm) 137 Fluid (mL) 1,304 Goal #1 TF meets at least 80% of energy and protein needs. Goal #2 TF tolerance Anticipated Discharge Needs: unable to determine at this time Follow-Up By: 01/06/20 Additional Comments F/U for stable TF
[2020-01-02] MEDS ORDERED: SODIUM CHLORIDE 0.9% 250ML 200 ML IV ONE (15:35)
[2020-01-02] MEDS: HALOPERIDOL LACTATE 5 MG/1 ML INJ IV PRN (17:13)
[2020-01-02] MEDS: LORazepam 2 MG/ML VIAL IV PRN (18:28)
[2020-01-02] MEDS: POLYETHYLENE GLYCOL 3350 17 GM POWDER PO SCH (21:58)
[2020-01-02] MEDS: TAMSULOSIN 0.4 MG CAP PO SCH (21:59)
[2020-01-03] MEDS: METOPROLOL TARTRATE 25 MG TAB FEEDTUBE SCH ×4 (00:44→17:23)
[2020-01-03] MEDS: VANCOMYCIN 1,750 MG in SODIUM CHLORIDE 0.9% 500 ML 500 ML IV SCH ×2 (00:45→11:53)
[2020-01-03] MEDS: HEPARIN/ 0.45% NACL DRIP 25,000 UNIT/500 ML BAG IV SCH ×2 (03:11→17:24)
[2020-01-03] MEDS: PIPERACIL/TAZOBACTA 4.5/NS 100 4.5 GM/100 ML VIAL IV SCH ×3 (06:43→22:17)
[2020-01-03 08:10] LABS: Alanine Aminotransferase 88 units/L (7-56); Albumin 2.9 g/dL (3.9-5); Blood Urea Nitrogen 23 mg/dL (9-20); Calcium 9.2 mg/dL (8.4-10.2); Hemolysis Index 0
[2020-01-03] MEDS: INSULIN LISPRO 100 UNIT/ML VIAL 3 mL SUB-Q SCH ×3 (08:10→18:07)
[2020-01-03 08:14] LABS: BUN/Creatinine Ratio 38
[2020-01-03 08:18] LABS: Basophils # (Auto) 0.1 K/mm3 (0.0-0.1); Basophils % (Auto) 0.8 % (0.0-1.8); Eosinophils # (Auto) 0.2 K/mm3 (0.0-0.4); Eosinophils % (Auto) 1.7 % (0.0-4.3); Hematocrit 28.9 % (35.5-45.6); Lymphocytes # (Auto) 1.6 K/mm3 (1.2-5.4); Mean Corpuscular HGB Conc 31 % (32-34); Mean Corpuscular Volume 86 fl (84-94); Monocytes % (Auto) 8.6 % (0.0-7.3); Platelet Count 236 K/mm3 (140-440); Red Blood Count 3.35 M/mm3 (3.65-5.03); Red Cell Distribution Width 16.6 % (13.2-15.2)
[2020-01-03] MEDS: AMIODARONE 200 MG TAB PO SCH ×2 (09:20→22:18)
[2020-01-03] MEDS: DOCUSATE SODIUM 100 MG/10 ML ORAL LIQD FEEDTUBE SCH ×2 (09:20→22:18)
[2020-01-03] MEDS: QUEtiapine 200 MG TAB PO SCH ×2 (09:20→22:18)
[2020-01-03] MEDS: FAMOTIDINE 20 MG TAB PO SCH ×2 (09:20→22:18)
--- NOTE | 2020-01-03 10:17 | XRay Report ---
CHEST 1 VIEW 01/03/2020 8:57 AM INDICATION / CLINICAL INFORMATION: CHF. COMPARISON: 01/02/2020. FINDINGS: SUPPORT DEVICES: Unchanged. HEART / MEDIASTINUM: Stable. LUNGS / PLEURA: Bilateral patchy airspace disease is relatively unchanged. No pneumothorax. ADDITIONAL FINDINGS: No significant additional findings. IMPRESSION: 1. No significant change. Signer Name: Jae Yadav MD Signed: 01/03/2020 10:12 AM Workstation Name: [id number]
[2020-01-03] MEDS: LORazepam 2 MG/ML VIAL IV PRN (10:23)
--- NOTE | 2020-01-03 10:59 | Progress Note ---
Assessment and Plan - Patient Problems (1) Acute respiratory failure Current Visit: Yes Status: Acute (2) Bilateral pneumonia Current Visit: Yes Status: Acute (3) COPD exacerbation Current Visit: No Status: Acute (4) Hypertension Current Visit: No Status: Acute Qualifiers: Hypertension type: essential hypertension Qualified Code(s): I10 - Essential (primary) hypertension (5) Cardiomyopathy Current Visit: Yes Status: Acute (6) Paroxysmal atrial fibrillation Current Visit: Yes Status: Acute Subjective Date of service: 01/03/20 Principal diagnosis: Ac hypoxemic resp failure; Pneumonia; PUI COVID-19; CHF; COPD; HTN Interval history: I SAW THIS PT & AGREE WITH THE Dx & Tx PLAN Objective Vital Signs Temp Pulse Pulse Resp Resp BP Pulse Ox 01/03/20 09:01 124 H 154/86 94 01/03/20 08:31 119 H 142/97 95 01/03/20 08:01 124 H 119/69 94 01/03/20 07:56 132 H 19 95 01/03/20 07:31 119 H 119/69 100 01/03/20 07:15 135 H 118/70 95 01/03/20 07:00 130 H 118/70 92 01/03/20 06:43 125 H 110/76 01/03/20 06:30 122 H 110/76 92 01/03/20 06:00 103 H 113/79 92 01/03/20 05:31 110 H 32 H 121/84 94 01/03/20 05:00 106 H 18 121/84 93 01/03/20 04:30 99 H 22 117/76 94 01/03/20 04:00 101 H 101 H 18 16 118/92 95 01/03/20 03:32 98.8 F 01/03/20 03:30 99 H 21 110/75 98 01/03/20 03:00 100 H 22 103/76 93 01/03/20 02:30 100 H 21 112/78 97 01/03/20 02:00 99 H 22 118/80 96 01/03/20 01:30 94 H 16 108/76 97 01/03/20 01:00 95 H 18 103/70 01/03/20 00:44 94 H 108/68 01/03/20 00:30 94 H 17 108/68 01/03/20 00:00 98 H 94 H 20 16 114/74 96 01/02/20 23:52 98.9 F 01/02/20 23:30 103 H 22 114/84 96 01/02/20 23:00 95 H 21 102/70 95 01/02/20 22:30 104 H 25 H 111/80 93 01/02/20 22:00 111 H 18 113/86 94 01/02/20 21:31 102 H 17 99/78 96 01/02/20 21:00 139 H 18 101/74 100 01/02/20 20:30 115 H 18 97/76 97 01/02/20 20:01 121 H 19 101/69 99 01/02/20 20:00 131 H 131 H 23 16 101/69 95 01/02/20 19:41 98.9 F 01/02/20 19:31 119 H 21 101/70 100 01/02/20 19:01 128 H 23 106/72 99 01/02/20 18:30 119 H 19 106/72 97 01/02/20 18:11 132 H 11 L 105/79 99 01/02/20 18:00 124 H 18 105/79 98 01/02/20 17:31 148 H 15 109/75 96 01/02/20 17:13 135 H 115/82 01/02/20 17:01 139 H 14 115/82 97 01/02/20 16:30 146 H 16 103/74 96 01/02/20 16:00 98.7 F 128 H 135 H 16 16 93/69 96 01/02/20 15:30 133 H 15 100/71 94 01/02/20 15:01 134 H 17 100/73 97 01/02/20 14:30 139 H 13 96/70 97 01/02/20 14:00 133 H 16 110/74 94 01/02/20 13:30 123 H 16 115/93 95 01/02/20 13:01 131 H 19 100/74 96 01/02/20 12:30 132 H 18 110/77 96 01/02/20 12:00 98.8 F 137 H 14 18 100/74 99 01/02/20 11:49 125 H 18 96 01/02/20 11:30 136 H 22 115/89 96 01/02/20 11:06 16 01/02/20 11:00 139 H 16 104/68 93 - Physical Examination General: Other (intubated on the vent) HEENT: Positive: PERRL Neck: Positive: neck supple Cardiac: Positive: Irregularly Regular, Tachycardia Lungs: Positive: Rhonchi Neuro: Positive: Other (Intubated ,alert) Abdomen: Positive: Soft Skin: Positive: Clear Extremities: Absent: edema - Labs and Meds Cardiac Enzymes 01/03/20 Range/Units 07:25 AST 40 (5-40) units/L CBC 01/03/20 Range/Units 07:45 WBC 12.1 H (4.5-11.0) K/mm3 RBC 3.35 L (3.65-5.03) M/mm3 Hgb 9.0 L (11.8-15.2) gm/dl Hct 28.9 L (35.5-45.6) % Plt Count 236 (140-440) K/mm3 Lymph # (Auto) 1.6 (1.2-5.4) K/mm3 [place] # (Auto) 1.0 H (0.0-0.8) K/mm3 Eos # (Auto) 0.2 (0.0-0.4) K/mm3 Baso # (Auto) 0.1 (0.0-0.1) K/mm3 Comprehensive Metabolic Panel 01/03/20 Range/Units 07:25 Sodium 145 (137-145) mmol/L Potassium 3.3 L D (3.6-5.0) mmol/L Chloride 100.3 (98-107) mmol/L Carbon Dioxide 35 H D (22-30) mmol/L BUN 23 H (9-20) mg/dL Creatinine 0.6 L (0.8-1.3) mg/dL Glucose 149 H (75-100) mg/dL Calcium 9.2 (8.4-10.2) mg/dL AST 40 (5-40) units/L ALT 88 H (7-56) units/L Alkaline Phosphatase 76 (35-129) units/L Total Protein 6.2 L (6.3-8.2) g/dL Albumin 2.9 L (3.9-5) g/dL - Allied health notes Allied health notes reviewed: RT
[2020-01-03] MEDS ORDERED: AMIODARONE 150 MG in DEXTROSE 5% IN WATER 100 ML IV ONE (11:00)
[2020-01-03] MEDS ORDERED: POTASSIUM CHLORIDE 20 MEQ PACKET FEEDTUBE ONE (12:00)
[2020-01-03] MEDS: fentaNYL DRIP Premix 2,000 MCG/100 ML BAG IV SCH ×2 (12:31→20:03)
--- NOTE | 2020-01-03 12:58 | Progress Note ---
Assessment and Plan Acute hypoxemic respiratory failure s/p trach on MVS Bilateral pneumonia, community acquired. Acute congestive heart failure exacerbation. History of cerebrovascular accident. Acute chronic obstructive pulmonary disease exacerbation. Hypertension and hypertensive urgency at presentation. History of arthritis. Oropharyngeal dysphagia Right Lext DVT Pulmonary embolism Trach care, airway clearance, secretion management Anticoagulation for PE Added one dose of digoxin for rate control Hold off on SBT today secondary to hemodynamic instability and agitation Monitor closely CXR, ABG in am - continue to monitor renal function, hemodynamics and electrolyte profile - continue to wean oxygen for O2 sats > 90% - continue bronchodilators with pulmonary hygiene per RT - VAP bundle addressed (Aspiration precautions, HOB >40) - continue to wean per pulmonary driven protocols - continue prn analgesia per CPOT score - follow clinically re: fever curves / trend WBC - Avoid delirium (no benzodiazepines if they can be avoided) - Enteral nutrition at goal rate as tolerated - continue accuchecks with glycemic control per SSI for target blood glucose goal of 140-180 mg/dL while critically ill; Avoid hypoglycemia - continue VTE prophylaxis with Heparin therapeutic dosing for PE/DVT - continue stress ulcer prophylaxis with Famotidine BID - continue mobility protocols for pressure ulcer prophylaxis - continue fall precautions - Supportive transfusions as indicated to keep HgB>7g/dL - Continue to monitor neurologic function - Continue chronic home medications as clinically indicated - Continue all supportive care CONDITION: CRITICAL PROGNOSIS: GUARDED CODE STATUS: FULL CODE The high probability of a clinically significant, sudden or life threatening deterioration of the [Respiratory, cardiovascular & neurological] system(s) required my full and direct attention, intervention and personal management. The aggregate critical care time was [33] minutes without overlap. Time includes spent on [x] Data Review and interpretation [x] Patient assessment and monitoring of vital signs [x] Documentation [x] Medication orders and management Subjective Date of service: 01/03/20 Principal diagnosis: Ac hypoxemic resp failure; Pneumonia; PUI COVID-19; CHF; COPD; HTN Interval history: Patient is seen today for: Acute hypoxemic respiratory failure; Adan. Pneumonia (CAP); PUI COVID-19 infection; AE-CHF; AE-COPD; H/O CVA; HTN; PE, DVT Seen and examined at bedside; 24 hour events reviewed; nursing and respiratory care staff consulted; no adverse overnight events reported to me; resting peacefully in bed;s/p trach No asynchrony, No episodes of vomiting. No fevers. Did not tolerate SBT this morning, tachypnea and some agitation In Afib with RVR, amiodarone and metoprolol per Cardiology Objective Vital Signs - 12hr 01/03/20 01/03/20 01/03/20 01:00 01:30 02:00 Temperature Pulse Rate 95 H 94 H 99 H Pulse Rate [ From Monitor] Respiratory 18 16 22 Rate Respiratory Rate [Chest] Blood Pressure 103/70 108/76 118/80 O2 Sat by Pulse 97 96 Oximetry 01/03/20 01/03/20 01/03/20 02:30 03:00 03:30 Temperature Pulse Rate 100 H 100 H 99 H Pulse Rate [ From Monitor] Respiratory 21 22 21 Rate Respiratory Rate [Chest] Blood Pressure 112/78 103/76 110/75 O2 Sat by Pulse 97 93 98 Oximetry 01/03/20 01/03/20 01/03/20 03:32 04:00 04:30 Temperature 98.8 F Pulse Rate 101 H 99 H Pulse Rate [ 101 H From Monitor] Respiratory 18 22 Rate Respiratory 16 Rate [Chest] Blood Pressure 118/92 117/76 O2 Sat by Pulse 95 94 Oximetry 01/03/20 01/03/20 01/03/20 05:00 05:31 06:00 Temperature Pulse Rate 106 H 110 H 103 H Pulse Rate [ From Monitor] Respiratory 18 32 H Rate Respiratory Rate [Chest] Blood Pressure 121/84 121/84 113/79 O2 Sat by Pulse 93 94 92 Oximetry 01/03/20 01/03/20 01/03/20 06:30 06:43 07:00 Temperature Pulse Rate 122 H 125 H 130 H Pulse Rate [ From Monitor] Respiratory Rate Respiratory Rate [Chest] Blood Pressure 110/76 110/76 118/70 O2 Sat by Pulse 92 92 Oximetry 01/03/20 01/03/20 01/03/20 07:15 07:31 07:56 Temperature Pulse Rate 135 H 119 H Pulse Rate [ 132 H From Monitor] Respiratory 19 Rate Respiratory Rate [Chest] Blood Pressure 118/70 119/69 O2 Sat by Pulse 95 100 95 Oximetry 01/03/20 01/03/20 01/03/20 08:00 08:01 08:31 Temperature 99.5 F Pulse Rate 124 H 119 H Pulse Rate [ From Monitor] Respiratory Rate Respiratory Rate [Chest] Blood Pressure 119/69 142/97 O2 Sat by Pulse 94 95 Oximetry 01/03/20 01/03/20 01/03/20 09:01 09:30 10:00 Temperature Pulse Rate 124 H 138 H 144 H Pulse Rate [ From Monitor] Respiratory Rate Respiratory Rate [Chest] Blood Pressure 154/86 124/88 123/64 O2 Sat by Pulse 94 94 93 Oximetry 01/03/20 01/03/20 01/03/20 10:30 11:00 11:18 Temperature Pulse Rate 144 H 144 H 145 H Pulse Rate [ From Monitor] Respiratory Rate Respiratory Rate [Chest] Blood Pressure 109/73 113/81 113/81 O2 Sat by Pulse 91 93 95 Oximetry 01/03/20 01/03/20 01/03/20 11:30 11:54 12:00 Temperature 99.2 F Pulse Rate 146 H 141 H 142 H Pulse Rate [ From Monitor] Respiratory Rate Respiratory Rate [Chest] Blood Pressure 106/74 106/74 110/71 O2 Sat by Pulse 94 97 Oximetry 01/03/20 12:30 Temperature Pulse Rate 141 H Pulse Rate [ From Monitor] Respiratory Rate Respiratory Rate [Chest] Blood Pressure 102/66 O2 Sat by Pulse 96 Oximetry Constitutional: no acute distress, alert, other (elderly and obese male, normocephalic with mildly increased respiratory effort at rest on MVS) Eyes: non-icteric ENT: oropharynx moist, other (trach to MVS) Neck: supple, no JVD Effort: mildly labored Ascultation: Bilateral: clear, diminished breath sounds (bases R>L), rhonchi Percussion: Bilateral: not dull Cardiovascular: irregular rhythm, other (S1,S2) Gastrointestinal: normoactive bowel sounds, soft, non-tender, non-distended Integumentary: normal Extremities: no cyanosis, pulses normal, no ischemia or petechiae, edema (bilateral upper ) Neurologic: normal mental status, non-focal exam (moves all extremities with extreme agitation), pupils equal and round, motor strength normal and Psychiatric: mood appropriate, affect normal CBC and BMP: 01/04/20 09:50 01/04/20 09:50 ABG, PT/INR, D-dimer: ABG ABG pH 7.439 pH Units (7.350-7.450) 12/30/19 04:59 POC ABG pCO2 52.9 mmHg (32.0-48.0) H 12/22/19 03:22 ABG pCO2 45.0 mm Hg 12/30/19 04:59 POC ABG pO2 52.3 mmHg (83-108) L 12/22/19 03:22 ABG pO2 89.3 mm Hg (80.0-90.0) 12/30/19 04:59 POC ABG HCO3 33.4 12/22/19 03:22 ABG O2 Saturation 96.3 % (95.0-99.0) 12/30/19 04:59 PT/INR, D-dimer PT 13.8 Sec. (12.2-14.9) 12/21/19 10:13 INR 1.05 (0.87-1.13) 12/21/19 10:13 Abnormal lab findings: Abnormal Labs 11/24/19 11/24/19 11/24/19 02:53 02:53 03:45 WBC 14.3 H RBC Hgb Hct MCHC RDW 17.2 H MCH Lymph % (Auto) [place] % (Auto) [place] # Eos # Lymph # (Auto) [place] # (Auto) Eos # (Auto) Seg Neutrophils % Seg Neuts % (Manual) Baso # (Auto) Lymphocytes % (Manual) Monocytes % (Manual) Eosinophils % (Manual) Basophils % (Manual) Seg Neutrophils # Seg Neutrophils # Man 8.3 H Lymphocytes # (Manual) Monocytes # (Manual) 0.9 H Eosinophils # (Manual) Nucleated RBC % Basophils # (Manual) APTT Heparin Anti-Xa Level ABG pH 7.313 L POC ABG pO2 ABG pO2 102.8 H ABG HCO3 ABG O2 Saturation ABG Base Excess -2.9 L POC ABG pCO2 ABG Hemoglobin ABG Oxyhemoglobin Oxyhemoglobin 93.9 L Sodium Potassium Chloride Carbon Dioxide BUN Creatinine Glucose 195 H POC Glucose Lactic Acid Calcium Phosphorus Magnesium AST ALT Lactate Dehydrogenase CK-MB (CK-2) 4.3 H C-Reactive Protein NT-Pro-B Natriuret Pep 1181 H Total Protein Albumin Urine WBC (Auto) 11/24/19 11/24/19 11/24/19 04:53 04:53 10:37 WBC RBC Hgb Hct MCHC RDW MCH Lymph % (Auto) [place] % (Auto) [place] # Eos # Lymph # (Auto) [place] # (Auto) Eos # (Auto) Seg Neutrophils % Seg Neuts % (Manual) Baso # (Auto) Lymphocytes % (Manual) Monocytes % (Manual) Eosinophils % (Manual) Basophils % (Manual) Seg Neutrophils # Seg Neutrophils # Man Lymphocytes # (Manual) Monocytes # (Manual) Eosinophils # (Manual) Nucleated RBC % Basophils # (Manual) APTT Heparin Anti-Xa Level ABG pH POC ABG pO2 ABG pO2 ABG HCO3 ABG O2 Saturation ABG Base Excess POC ABG pCO2 ABG Hemoglobin ABG Oxyhemoglobin Oxyhemoglobin Sodium Potassium Chloride Carbon Dioxide BUN Creatinine Glucose 162 H POC Glucose Lactic Acid 2.40 H* 2.50 H* Calcium Phosphorus Magnesium AST ALT Lactate Dehydrogenase 240 H CK-MB (CK-2) C-Reactive Protein NT-Pro-B Natriuret Pep Total Protein Albumin Urine WBC (Auto) 11/24/19 11/24/19 11/24/19 12:21 14:50 19:54 WBC RBC Hgb Hct MCHC RDW MCH Lymph % (Auto) [place] % (Auto) [place] # Eos # Lymph # (Auto) [place] # (Auto) Eos # (Auto) Seg Neutrophils % Seg Neuts % (Manual) Baso # (Auto) Lymphocytes % (Manual) Monocytes % (Manual) Eosinophils % (Manual) Basophils % (Manual) Seg Neutrophils # Seg Neutrophils # Man Lymphocytes # (Manual) Monocytes # (Manual) Eosinophils # (Manual) Nucleated RBC % Basophils # (Manual) APTT Heparin Anti-Xa Level ABG pH POC ABG pO2 ABG pO2 ABG HCO3 ABG O2 Saturation ABG Base Excess POC ABG pCO2 ABG Hemoglobin ABG Oxyhemoglobin Oxyhemoglobin Sodium Potassium Chloride Carbon Dioxide BUN Creatinine Glucose POC Glucose 145 H 143 H 124 H Lactic Acid Calcium Phosphorus Magnesium AST ALT Lactate Dehydrogenase CK-MB (CK-2) C-Reactive Protein NT-Pro-B Natriuret Pep Total Protein Albumin Urine WBC (Auto) 11/25/19 11/25/19 11/25/19 00:18 03:18 05:11 WBC 13.7 H RBC Hgb Hct MCHC RDW 17.1 H MCH Lymph % (Auto) 10.8 L [place] % (Auto) 8.7 H [place] # 1.2 H Eos # Lymph # (Auto) [place] # (Auto) Eos # (Auto) Seg Neutrophils % 80.2 H Seg Neuts % (Manual) Baso # (Auto) Lymphocytes % (Manual) Monocytes % (Manual) Eosinophils % (Manual) Basophils % (Manual) Seg Neutrophils # 11.0 H Seg Neutrophils # Man Lymphocytes # (Manual) Monocytes # (Manual) Eosinophils # (Manual) Nucleated RBC % Basophils # (Manual) APTT Heparin Anti-Xa Level ABG pH 7.333 L POC ABG pO2 ABG pO2 61.2 L ABG HCO3 ABG O2 Saturation 90.2 L ABG Base Excess POC ABG pCO2 ABG Hemoglobin 13.7 L ABG Oxyhemoglobin Oxyhemoglobin 88.2 L Sodium Potassium Chloride Carbon Dioxide BUN Creatinine Glucose POC Glucose 109 H Lactic Acid Calcium Phosphorus Magnesium AST ALT Lactate Dehydrogenase CK-MB (CK-2) C-Reactive Protein NT-Pro-B Natriuret Pep Total Protein Albumin Urine WBC (Auto) 11/25/19 11/25/19 11/26/19 05:11 11:40 03:12 WBC RBC Hgb Hct MCHC RDW MCH Lymph % (Auto) [place] % (Auto) [place] # Eos # Lymph # (Auto) [place] # (Auto) Eos # (Auto) Seg Neutrophils % Seg Neuts % (Manual) Baso # (Auto) Lymphocytes % (Manual) Monocytes % (Manual) Eosinophils % (Manual) Basophils % (Manual) Seg Neutrophils # Seg Neutrophils # Man Lymphocytes # (Manual) Monocytes # (Manual) Eosinophils # (Manual) Nucleated RBC % Basophils # (Manual) APTT Heparin Anti-Xa Level ABG pH POC ABG pO2 ABG pO2 155.1 H ABG HCO3 27.8 H ABG O2 Saturation ABG Base Excess POC ABG pCO2 ABG Hemoglobin 12.2 L ABG Oxyhemoglobin Oxyhemoglobin Sodium Potassium Chloride Carbon Dioxide BUN 23 H Creatinine Glucose 110 H POC Glucose 108 H Lactic Acid Calcium Phosphorus Magnesium AST ALT Lactate Dehydrogenase CK-MB (CK-2) C-Reactive Protein NT-Pro-B Natriuret Pep Total Protein Albumin Urine WBC (Auto) 11/26/19 11/26/19 11/26/19 06:17 10:43 10:43 WBC 11.4 H RBC Hgb Hct MCHC RDW 17.1 H MCH Lymph % (Auto) [place] % (Auto) [place] # Eos # Lymph # (Auto) [place] # (Auto) Eos # (Auto) Seg Neutrophils % Seg Neuts % (Manual) Baso # (Auto) Lymphocytes % (Manual) Monocytes % (Manual) Eosinophils % (Manual) Basophils % (Manual) Seg Neutrophils # Seg Neutrophils # Man Lymphocytes # (Manual) Monocytes # (Manual) Eosinophils # (Manual) Nucleated RBC % Basophils # (Manual) APTT Heparin Anti-Xa Level ABG pH POC ABG pO2 ABG pO2 ABG HCO3 ABG O2 Saturation ABG Base Excess POC ABG pCO2 ABG Hemoglobin ABG Oxyhemoglobin Oxyhemoglobin Sodium Potassium Chloride Carbon Dioxide BUN 29 H Creatinine Glucose POC Glucose 107 H Lactic Acid Calcium Phosphorus Magnesium AST ALT Lactate Dehydrogenase CK-MB (CK-2) C-Reactive Protein NT-Pro-B Natriuret Pep Total Protein Albumin Urine WBC (Auto) 11/26/19 11/27/19 11/27/19 17:11 01:53 04:11 WBC RBC Hgb Hct MCHC RDW MCH Lymph % (Auto) [place] % (Auto) [place] # Eos # Lymph # (Auto) [place] # (Auto) Eos # (Auto) Seg Neutrophils % Seg Neuts % (Manual) Baso # (Auto) Lymphocytes % (Manual) Monocytes % (Manual) Eosinophils % (Manual) Basophils % (Manual) Seg Neutrophils # Seg Neutrophils # Man Lymphocytes # (Manual) Monocytes # (Manual) Eosinophils # (Manual) Nucleated RBC % Basophils # (Manual) APTT Heparin Anti-Xa Level ABG pH POC ABG pO2 ABG pO2 ABG HCO3 29.2 H ABG O2 Saturation ABG Base Excess 3.4 H POC ABG pCO2 ABG Hemoglobin 13.3 L ABG Oxyhemoglobin Oxyhemoglobin 94.5 L Sodium Potassium Chloride Carbon Dioxide BUN Creatinine Glucose POC Glucose 113 H 108 H Lactic Acid Calcium Phosphorus Magnesium AST ALT Lactate Dehydrogenase CK-MB (CK-2) C-Reactive Protein NT-Pro-B Natriuret Pep Total Protein Albumin Urine WBC (Auto) 11/27/19 11/28/19 11/28/19 05:27 05:00 05:25 WBC RBC Hgb Hct MCHC RDW MCH Lymph % (Auto) [place] % (Auto) [place] # Eos # Lymph # (Auto) [place] # (Auto) Eos # (Auto) Seg Neutrophils % Seg Neuts % (Manual) Baso # (Auto) Lymphocytes % (Manual) Monocytes % (Manual) Eosinophils % (Manual) Basophils % (Manual) Seg Neutrophils # Seg Neutrophils # Man Lymphocytes # (Manual) Monocytes # (Manual) Eosinophils # (Manual) Nucleated RBC % Basophils # (Manual) APTT Heparin Anti-Xa Level ABG pH POC ABG pO2 68.1 L ABG pO2 ABG HCO3 ABG O2 Saturation ABG Base Excess POC ABG pCO2 ABG Hemoglobin ABG Oxyhemoglobin 91.2 L Oxyhemoglobin Sodium Potassium Chloride Carbon Dioxide BUN Creatinine Glucose POC Glucose 111 H 110 H Lactic Acid Calcium Phosphorus Magnesium AST ALT Lactate Dehydrogenase CK-MB (CK-2) C-Reactive Protein NT-Pro-B Natriuret Pep Total Protein Albumin Urine WBC (Auto) 11/28/19 11/28/19 11/28/19 12:08 13:47 13:47 WBC 11.3 H RBC Hgb Hct MCHC RDW 16.1 H MCH Lymph % (Auto) [place] % (Auto) 9.9 H [place] # 1.1 H Eos # Lymph # (Auto) [place] # (Auto) Eos # (Auto) Seg Neutrophils % 71.4 H Seg Neuts % (Manual) Baso # (Auto) Lymphocytes % (Manual) Monocytes % (Manual) Eosinophils % (Manual) Basophils % (Manual) Seg Neutrophils # 8.1 H Seg Neutrophils # Man Lymphocytes # (Manual) Monocytes # (Manual) Eosinophils # (Manual) Nucleated RBC % Basophils # (Manual) APTT Heparin Anti-Xa Level ABG pH POC ABG pO2 ABG pO2 ABG HCO3 ABG O2 Saturation ABG Base Excess POC ABG pCO2 ABG Hemoglobin ABG Oxyhemoglobin Oxyhemoglobin Sodium Potassium Chloride Carbon Dioxide BUN 23 H Creatinine Glucose 123 H POC Glucose 112 H Lactic Acid Calcium Phosphorus Magnesium AST ALT Lactate Dehydrogenase CK-MB (CK-2) C-Reactive Protein NT-Pro-B Natriuret Pep Total Protein Albumin 3.7 L Urine WBC (Auto) 11/28/19 11/29/19 11/29/19 17:26 03:55 17:04 WBC RBC Hgb Hct MCHC RDW MCH Lymph % (Auto) [place] % (Auto) [place] # Eos # Lymph # (Auto) [place] # (Auto) Eos # (Auto) Seg Neutrophils % Seg Neuts % (Manual) Baso # (Auto) Lymphocytes % (Manual) Monocytes % (Manual) Eosinophils % (Manual) Basophils % (Manual) Seg Neutrophils # Seg Neutrophils # Man Lymphocytes # (Manual) Monocytes # (Manual) Eosinophils # (Manual) Nucleated RBC % Basophils # (Manual) APTT Heparin Anti-Xa Level ABG pH POC ABG pO2 ABG pO2 65.7 L ABG HCO3 28.3 H ABG O2 Saturation 93.9 L ABG Base Excess 3.6 H POC ABG pCO2 ABG Hemoglobin 13.3 L ABG Oxyhemoglobin Oxyhemoglobin 91.5 L Sodium Potassium Chloride Carbon Dioxide BUN Creatinine Glucose POC Glucose 123 H 119 H Lactic Acid Calcium Phosphorus Magnesium AST ALT Lactate Dehydrogenase CK-MB (CK-2) C-Reactive Protein NT-Pro-B Natriuret Pep Total Protein Albumin Urine WBC (Auto) 11/30/19 11/30/19 11/30/19 04:17 04:17 04:56 WBC 13.4 H RBC Hgb Hct MCHC RDW 15.6 H MCH Lymph % (Auto) [place] % (Auto) [place] # Eos # Lymph # (Auto) [place] # (Auto) Eos # (Auto) Seg Neutrophils % Seg Neuts % (Manual) Baso # (Auto) Lymphocytes % (Manual) Monocytes % (Manual) Eosinophils % (Manual) Basophils % (Manual) Seg Neutrophils # Seg Neutrophils # Man Lymphocytes # (Manual) Monocytes # (Manual) Eosinophils # (Manual) Nucleated RBC % Basophils # (Manual) APTT Heparin Anti-Xa Level ABG pH POC ABG pO2 ABG pO2 56.3 L ABG HCO3 29.3 H ABG O2 Saturation 91.5 L ABG Base Excess 4.7 H POC ABG pCO2 ABG Hemoglobin 12.1 L ABG Oxyhemoglobin Oxyhemoglobin 89.2 L Sodium 147 H Potassium Chloride Carbon Dioxide BUN 30 H Creatinine Glucose 124 H POC Glucose Lactic Acid Calcium Phosphorus Magnesium AST ALT Lactate Dehydrogenase CK-MB (CK-2) C-Reactive Protein NT-Pro-B Natriuret Pep Total Protein Albumin 3.8 L Urine WBC (Auto) 11/30/19 11/30/19 11/30/19 05:51 11:54 18:17 WBC RBC Hgb Hct MCHC RDW MCH Lymph % (Auto) [place] % (Auto) [place] # Eos # Lymph # (Auto) [place] # (Auto) Eos # (Auto) Seg Neutrophils % Seg Neuts % (Manual) Baso # (Auto) Lymphocytes % (Manual) Monocytes % (Manual) Eosinophils % (Manual) Basophils % (Manual) Seg Neutrophils # Seg Neutrophils # Man Lymphocytes # (Manual) Monocytes # (Manual) Eosinophils # (Manual) Nucleated RBC % Basophils # (Manual) APTT Heparin Anti-Xa Level ABG pH POC ABG pO2 ABG pO2 ABG HCO3 ABG O2 Saturation ABG Base Excess POC ABG pCO2 ABG Hemoglobin ABG Oxyhemoglobin Oxyhemoglobin Sodium Potassium Chloride Carbon Dioxide BUN Creatinine Glucose POC Glucose 127 H 115 H 143 H Lactic Acid Calcium Phosphorus Magnesium AST ALT Lactate Dehydrogenase CK-MB (CK-2) C-Reactive Protein NT-Pro-B Natriuret Pep Total Protein Albumin Urine WBC (Auto) 12/01/19 12/01/19 12/01/19 01:18 05:22 12:16 WBC RBC Hgb Hct MCHC RDW MCH Lymph % (Auto) [place] % (Auto) [place] # Eos # Lymph # (Auto) [place] # (Auto) Eos # (Auto) Seg Neutrophils % Seg Neuts % (Manual) Baso # (Auto) Lymphocytes % (Manual) Monocytes % (Manual) Eosinophils % (Manual) Basophils % (Manual) Seg Neutrophils # Seg Neutrophils # Man Lymphocytes # (Manual) Monocytes # (Manual) Eosinophils # (Manual) Nucleated RBC % Basophils # (Manual) APTT Heparin Anti-Xa Level ABG pH POC ABG pO2 ABG pO2 ABG HCO3 ABG O2 Saturation ABG Base Excess POC ABG pCO2 ABG Hemoglobin ABG Oxyhemoglobin Oxyhemoglobin Sodium Potassium 3.5 L Chloride 107.8 H Carbon Dioxide BUN 37 H Creatinine Glucose 157 H POC Glucose 118 H 148 H Lactic Acid Calcium 8.2 L D Phosphorus Magnesium AST 48 H ALT 60 H Lactate Dehydrogenase 194 H CK-MB (CK-2) C-Reactive Protein 8.50 H NT-Pro-B Natriuret Pep Total Protein 5.5 L Albumin 2.8 L Urine WBC (Auto) 12/01/19 12/02/19 12/02/19 18:04 00:05 05:16 WBC 11.4 H RBC Hgb Hct MCHC RDW 15.9 H MCH Lymph % (Auto) [place] % (Auto) 9.9 H [place] # 1.1 H Eos # Lymph # (Auto) [place] # (Auto) Eos # (Auto) Seg Neutrophils % 70.3 H Seg Neuts % (Manual) Baso # (Auto) Lymphocytes % (Manual) Monocytes % (Manual) Eosinophils % (Manual) Basophils % (Manual) Seg Neutrophils # 8.0 H Seg Neutrophils # Man Lymphocytes # (Manual) Monocytes # (Manual) Eosinophils # (Manual) Nucleated RBC % Basophils # (Manual) APTT Heparin Anti-Xa Level ABG pH POC ABG pO2 ABG pO2 ABG HCO3 ABG O2 Saturation ABG Base Excess POC ABG pCO2 ABG Hemoglobin ABG Oxyhemoglobin Oxyhemoglobin Sodium Potassium Chloride Carbon Dioxide BUN Creatinine Glucose POC Glucose 143 H 107 H Lactic Acid Calcium Phosphorus Magnesium AST ALT Lactate Dehydrogenase CK-MB (CK-2) C-Reactive Protein NT-Pro-B Natriuret Pep Total Protein Albumin Urine WBC (Auto) 12/02/19 12/02/19 12/02/19 05:16 06:03 11:52 WBC RBC Hgb Hct MCHC RDW MCH Lymph % (Auto) [place] % (Auto) [place] # Eos # Lymph # (Auto) [place] # (Auto) Eos # (Auto) Seg Neutrophils % Seg Neuts % (Manual) Baso # (Auto) Lymphocytes % (Manual) Monocytes % (Manual) Eosinophils % (Manual) Basophils % (Manual) Seg Neutrophils # Seg Neutrophils # Man Lymphocytes # (Manual) Monocytes # (Manual) Eosinophils # (Manual) Nucleated RBC % Basophils # (Manual) APTT Heparin Anti-Xa Level ABG pH POC ABG pO2 ABG pO2 ABG HCO3 ABG O2 Saturation ABG Base Excess POC ABG pCO2 ABG Hemoglobin ABG Oxyhemoglobin Oxyhemoglobin Sodium 146 H Potassium Chloride Carbon Dioxide BUN 28 H Creatinine Glucose 123 H POC Glucose 110 H 152 H Lactic Acid Calcium Phosphorus Magnesium AST ALT Lactate Dehydrogenase CK-MB (CK-2) C-Reactive Protein NT-Pro-B Natriuret Pep Total Protein Albumin Urine WBC (Auto) 12/02/19 12/02/19 12/02/19 12:58 17:58 23:36 WBC RBC Hgb Hct MCHC RDW MCH Lymph % (Auto) [place] % (Auto) [place] # Eos # Lymph # (Auto) [place] # (Auto) Eos # (Auto) Seg Neutrophils % Seg Neuts % (Manual) Baso # (Auto) Lymphocytes % (Manual) Monocytes % (Manual) Eosinophils % (Manual) Basophils % (Manual) Seg Neutrophils # Seg Neutrophils # Man Lymphocytes # (Manual) Monocytes # (Manual) Eosinophils # (Manual) Nucleated RBC % Basophils # (Manual) APTT Heparin Anti-Xa Level ABG pH POC ABG pO2 78.1 L ABG pO2 ABG HCO3 ABG O2 Saturation ABG Base Excess POC ABG pCO2 ABG Hemoglobin ABG Oxyhemoglobin Oxyhemoglobin Sodium Potassium Chloride Carbon Dioxide BUN Creatinine Glucose POC Glucose 120 H 123 H Lactic Acid Calcium Phosphorus Magnesium AST ALT Lactate Dehydrogenase CK-MB (CK-2) C-Reactive Protein NT-Pro-B Natriuret Pep Total Protein Albumin Urine WBC (Auto) 12/03/19 12/03/19 12/03/19 06:03 06:14 11:46 WBC RBC Hgb Hct MCHC RDW MCH Lymph % (Auto) [place] % (Auto) [place] # Eos # Lymph # (Auto) [place] # (Auto) Eos # (Auto) Seg Neutrophils % Seg Neuts % (Manual) Baso # (Auto) Lymphocytes % (Manual) Monocytes % (Manual) Eosinophils % (Manual) Basophils % (Manual) Seg Neutrophils # Seg Neutrophils # Man Lymphocytes # (Manual) Monocytes # (Manual) Eosinophils # (Manual) Nucleated RBC % Basophils # (Manual) APTT Heparin Anti-Xa Level ABG pH POC ABG pO2 ABG pO2 ABG HCO3 ABG O2 Saturation ABG Base Excess POC ABG pCO2 ABG Hemoglobin ABG Oxyhemoglobin Oxyhemoglobin Sodium Potassium Chloride Carbon Dioxide BUN Creatinine Glucose POC Glucose 142 H 130 H Lactic Acid Calcium Phosphorus Magnesium AST ALT Lactate Dehydrogenase CK-MB (CK-2) C-Reactive Protein NT-Pro-B Natriuret Pep Total Protein Albumin Urine WBC (Auto) 8.0 H 12/03/19 12/03/19 12/04/19 15:50 17:39 00:04 WBC RBC Hgb Hct MCHC RDW MCH Lymph % (Auto) [place] % (Auto) [place] # Eos # Lymph # (Auto) [place] # (Auto) Eos # (Auto) Seg Neutrophils % Seg Neuts % (Manual) Baso # (Auto) Lymphocytes % (Manual) Monocytes % (Manual) Eosinophils % (Manual) Basophils % (Manual) Seg Neutrophils # Seg Neutrophils # Man Lymphocytes # (Manual) Monocytes # (Manual) Eosinophils # (Manual) Nucleated RBC % Basophils # (Manual) APTT Heparin Anti-Xa Level ABG pH POC ABG pO2 ABG pO2 ABG HCO3 ABG O2 Saturation ABG Base Excess POC ABG pCO2 ABG Hemoglobin ABG Oxyhemoglobin Oxyhemoglobin Sodium Potassium Chloride Carbon Dioxide BUN Creatinine Glucose POC Glucose 146 H 133 H Lactic Acid Calcium Phosphorus 2.40 L Magnesium AST ALT Lactate Dehydrogenase CK-MB (CK-2) C-Reactive Protein NT-Pro-B Natriuret Pep Total Protein Albumin Urine WBC (Auto) 12/04/19 12/04/19 12/04/19 03:58 03:58 05:22 WBC 12.5 H RBC Hgb 11.2 L Hct 35.2 L MCHC RDW 16.0 H MCH Lymph % (Auto) [place] % (Auto) 9.6 H [place] # 1.2 H Eos # 0.5 H Lymph # (Auto) [place] # (Auto) Eos # (Auto) Seg Neutrophils % Seg Neuts % (Manual) Baso # (Auto) Lymphocytes % (Manual) Monocytes % (Manual) Eosinophils % (Manual) Basophils % (Manual) Seg Neutrophils # 8.6 H Seg Neutrophils # Man Lymphocytes # (Manual) Monocytes # (Manual) Eosinophils # (Manual) Nucleated RBC % Basophils # (Manual) APTT Heparin Anti-Xa Level ABG pH POC ABG pO2 ABG pO2 ABG HCO3 ABG O2 Saturation ABG Base Excess POC ABG pCO2 ABG Hemoglobin ABG Oxyhemoglobin Oxyhemoglobin Sodium 146 H Potassium Chloride 108.6 H Carbon Dioxide BUN 30 H Creatinine 0.7 L Glucose 121 H POC Glucose 132 H Lactic Acid Calcium Phosphorus Magnesium AST ALT Lactate Dehydrogenase CK-MB (CK-2) C-Reactive Protein NT-Pro-B Natriuret Pep Total Protein Albumin Urine WBC (Auto) 12/04/19 12/04/19 12/05/19 13:26 18:43 00:19 WBC RBC Hgb Hct MCHC RDW MCH Lymph % (Auto) [place] % (Auto) [place] # Eos # Lymph # (Auto) [place] # (Auto) Eos # (Auto) Seg Neutrophils % Seg Neuts % (Manual) Baso # (Auto) Lymphocytes % (Manual) Monocytes % (Manual) Eosinophils % (Manual) Basophils % (Manual) Seg Neutrophils # Seg Neutrophils # Man Lymphocytes # (Manual) Monocytes # (Manual) Eosinophils # (Manual) Nucleated RBC % Basophils # (Manual) APTT Heparin Anti-Xa Level ABG pH POC ABG pO2 ABG pO2 ABG HCO3 ABG O2 Saturation ABG Base Excess POC ABG pCO2 ABG Hemoglobin ABG Oxyhemoglobin Oxyhemoglobin Sodium Potassium Chloride Carbon Dioxide BUN Creatinine Glucose POC Glucose 185 H 156 H 150 H Lactic Acid Calcium Phosphorus Magnesium AST ALT Lactate Dehydrogenase CK-MB (CK-2) C-Reactive Protein NT-Pro-B Natriuret Pep Total Protein Albumin Urine WBC (Auto) 12/05/19 12/05/19 12/05/19 03:37 03:37 05:14 WBC 16.3 H RBC Hgb 11.4 L Hct MCHC RDW 15.6 H MCH Lymph % (Auto) 9.9 L [place] % (Auto) 9.7 H [place] # 1.6 H Eos # Lymph # (Auto) [place] # (Auto) Eos # (Auto) Seg Neutrophils % 78.0 H Seg Neuts % (Manual) Baso # (Auto) Lymphocytes % (Manual) Monocytes % (Manual) Eosinophils % (Manual) Basophils % (Manual) Seg Neutrophils # 12.7 H Seg Neutrophils # Man Lymphocytes # (Manual) Monocytes # (Manual) Eosinophils # (Manual) Nucleated RBC % Basophils # (Manual) APTT Heparin Anti-Xa Level ABG pH POC ABG pO2 ABG pO2 ABG HCO3 ABG O2 Saturation ABG Base Excess POC ABG pCO2 ABG Hemoglobin ABG Oxyhemoglobin Oxyhemoglobin Sodium 146 H Potassium Chloride 107.2 H Carbon Dioxide BUN 27 H Creatinine 0.7 L Glucose 171 H POC Glucose 168 H Lactic Acid Calcium Phosphorus Magnesium AST ALT Lactate Dehydrogenase CK-MB (CK-2) C-Reactive Protein NT-Pro-B Natriuret Pep Total Protein Albumin Urine WBC (Auto) 12/05/19 12/05/19 12/05/19 12:31 18:10 23:58 WBC RBC Hgb Hct MCHC RDW MCH Lymph % (Auto) [place] % (Auto) [place] # Eos # Lymph # (Auto) [place] # (Auto) Eos # (Auto) Seg Neutrophils % Seg Neuts % (Manual) Baso # (Auto) Lymphocytes % (Manual) Monocytes % (Manual) Eosinophils % (Manual) Basophils % (Manual) Seg Neutrophils # Seg Neutrophils # Man Lymphocytes # (Manual) Monocytes # (Manual) Eosinophils # (Manual) Nucleated RBC % Basophils # (Manual) APTT Heparin Anti-Xa Level ABG pH POC ABG pO2 ABG pO2 ABG HCO3 ABG O2 Saturation ABG Base Excess POC ABG pCO2 ABG Hemoglobin ABG Oxyhemoglobin Oxyhemoglobin Sodium Potassium Chloride Carbon Dioxide BUN Creatinine Glucose POC Glucose 159 H 198 H 115 H Lactic Acid Calcium Phosphorus Magnesium AST ALT Lactate Dehydrogenase CK-MB (CK-2) C-Reactive Protein NT-Pro-B Natriuret Pep Total Protein Albumin Urine WBC (Auto) 12/06/19 12/06/19 12/06/19 05:24 05:24 05:25 WBC 14.9 H RBC Hgb 10.8 L Hct 34.0 L MCHC RDW 15.6 H MCH Lymph % (Auto) 10.7 L [place] % (Auto) 8.3 H [place] # 1.2 H Eos # Lymph # (Auto) [place] # (Auto) Eos # (Auto) Seg Neutrophils % 78.7 H Seg Neuts % (Manual) Baso # (Auto) Lymphocytes % (Manual) Monocytes % (Manual) Eosinophils % (Manual) Basophils % (Manual) Seg Neutrophils # 11.7 H Seg Neutrophils # Man Lymphocytes # (Manual) Monocytes # (Manual) Eosinophils # (Manual) Nucleated RBC % Basophils # (Manual) APTT Heparin Anti-Xa Level ABG pH POC ABG pO2 ABG pO2 ABG HCO3 ABG O2 Saturation ABG Base Excess POC ABG pCO2 ABG Hemoglobin ABG Oxyhemoglobin Oxyhemoglobin Sodium 148 H Potassium 5.1 H Chloride 107.6 H Carbon Dioxide BUN 27 H Creatinine 0.7 L Glucose 155 H POC Glucose 157 H Lactic Acid Calcium Phosphorus Magnesium AST ALT Lactate Dehydrogenase CK-MB (CK-2) C-Reactive Protein NT-Pro-B Natriuret Pep Total Protein Albumin Urine WBC (Auto) 12/07/19 12/07/19 12/07/19 00:13 05:34 11:33 WBC RBC Hgb Hct MCHC RDW MCH Lymph % (Auto) [place] % (Auto) [place] # Eos # Lymph # (Auto) [place] # (Auto) Eos # (Auto) Seg Neutrophils % Seg Neuts % (Manual) Baso # (Auto) Lymphocytes % (Manual) Monocytes % (Manual) Eosinophils % (Manual) Basophils % (Manual) Seg Neutrophils # Seg Neutrophils # Man Lymphocytes # (Manual) Monocytes # (Manual) Eosinophils # (Manual) Nucleated RBC % Basophils # (Manual) APTT Heparin Anti-Xa Level ABG pH POC ABG pO2 ABG pO2 ABG HCO3 ABG O2 Saturation ABG Base Excess POC ABG pCO2 ABG Hemoglobin ABG Oxyhemoglobin Oxyhemoglobin Sodium Potassium Chloride Carbon Dioxide BUN Creatinine Glucose POC Glucose 142 H 111 H 169 H Lactic Acid Calcium Phosphorus Magnesium AST ALT Lactate Dehydrogenase CK-MB (CK-2) C-Reactive Protein NT-Pro-B Natriuret Pep Total Protein Albumin Urine WBC (Auto) 12/07/19 12/07/19 12/07/19 12:41 13:25 18:19 WBC 12.4 H RBC 3.53 L Hgb 10.2 L Hct 32.1 L MCHC RDW 15.3 H MCH Lymph % (Auto) 10.6 L [place] % (Auto) 7.8 H [place] # 1.0 H Eos # Lymph # (Auto) [place] # (Auto) Eos # (Auto) Seg Neutrophils % 77.6 H Seg Neuts % (Manual) Baso # (Auto) Lymphocytes % (Manual) Monocytes % (Manual) Eosinophils % (Manual) Basophils % (Manual) Seg Neutrophils # 9.6 H Seg Neutrophils # Man Lymphocytes # (Manual) Monocytes # (Manual) Eosinophils # (Manual) Nucleated RBC % Basophils # (Manual) APTT Heparin Anti-Xa Level ABG pH POC ABG pO2 ABG pO2 ABG HCO3 ABG O2 Saturation ABG Base Excess POC ABG pCO2 ABG Hemoglobin ABG Oxyhemoglobin Oxyhemoglobin Sodium 149 H Potassium Chloride 108.4 H Carbon Dioxide BUN 26 H Creatinine 0.6 L Glucose 149 H POC Glucose 164 H Lactic Acid Calcium Phosphorus Magnesium 2.60 H AST 121 H ALT 145 H Lactate Dehydrogenase CK-MB (CK-2) C-Reactive Protein NT-Pro-B Natriuret Pep Total Protein Albumin 2.6 L Urine WBC (Auto) 12/07/19 12/08/19 12/08/19 22:25 00:02 03:55 WBC 13.3 H RBC 3.40 L Hgb 9.7 L Hct 30.8 L MCHC 31 L RDW 15.5 H MCH Lymph % (Auto) [place] % (Auto) 8.1 H [place] # 1.1 H Eos # Lymph # (Auto) [place] # (Auto) Eos # (Auto) Seg Neutrophils % 73.0 H Seg Neuts % (Manual) Baso # (Auto) Lymphocytes % (Manual) Monocytes % (Manual) Eosinophils % (Manual) Basophils % (Manual) Seg Neutrophils # 9.7 H Seg Neutrophils # Man Lymphocytes # (Manual) Monocytes # (Manual) Eosinophils # (Manual) Nucleated RBC % Basophils # (Manual) APTT Heparin Anti-Xa Level 0.12 L ABG pH POC ABG pO2 ABG pO2 ABG HCO3 ABG O2 Saturation ABG Base Excess POC ABG pCO2 ABG Hemoglobin ABG Oxyhemoglobin Oxyhemoglobin Sodium Potassium Chloride Carbon Dioxide BUN Creatinine Glucose POC Glucose 151 H Lactic Acid Calcium Phosphorus Magnesium AST ALT Lactate Dehydrogenase CK-MB (CK-2) C-Reactive Protein NT-Pro-B Natriuret Pep Total Protein Albumin Urine WBC (Auto) 12/08/19 12/08/19 12/08/19 03:55 05:21 06:01 WBC RBC Hgb Hct MCHC RDW MCH Lymph % (Auto) [place] % (Auto) [place] # Eos # Lymph # (Auto) [place] # (Auto) Eos # (Auto) Seg Neutrophils % Seg Neuts % (Manual) Baso # (Auto) Lymphocytes % (Manual) Monocytes % (Manual) Eosinophils % (Manual) Basophils % (Manual) Seg Neutrophils # Seg Neutrophils # Man Lymphocytes # (Manual) Monocytes # (Manual) Eosinophils # (Manual) Nucleated RBC % Basophils # (Manual) APTT Heparin Anti-Xa Level 0.20 L ABG pH POC ABG pO2 ABG pO2 ABG HCO3 ABG O2 Saturation ABG Base Excess POC ABG pCO2 ABG Hemoglobin ABG Oxyhemoglobin Oxyhemoglobin Sodium 149 H Potassium Chloride 108.0 H Carbon Dioxide BUN 28 H Creatinine 0.6 L Glucose 144 H POC Glucose 143 H Lactic Acid Calcium Phosphorus Magnesium AST 98 H ALT 145 H Lactate Dehydrogenase CK-MB (CK-2) C-Reactive Protein NT-Pro-B Natriuret Pep Total Protein 6.0 L Albumin 2.4 L Urine WBC (Auto) 12/08/19 12/08/19 12/08/19 12:08 18:11 23:53 WBC RBC Hgb Hct MCHC RDW MCH Lymph % (Auto) [place] % (Auto) [place] # Eos # Lymph # (Auto) [place] # (Auto) Eos # (Auto) Seg Neutrophils % Seg Neuts % (Manual) Baso # (Auto) Lymphocytes % (Manual) Monocytes % (Manual) Eosinophils % (Manual) Basophils % (Manual) Seg Neutrophils # Seg Neutrophils # Man Lymphocytes # (Manual) Monocytes # (Manual) Eosinophils # (Manual) Nucleated RBC % Basophils # (Manual) APTT Heparin Anti-Xa Level ABG pH POC ABG pO2 ABG pO2 ABG HCO3 ABG O2 Saturation ABG Base Excess POC ABG pCO2 ABG Hemoglobin ABG Oxyhemoglobin Oxyhemoglobin Sodium Potassium Chloride Carbon Dioxide BUN Creatinine Glucose POC Glucose 172 H 122 H 162 H Lactic Acid Calcium Phosphorus Magnesium AST ALT Lactate Dehydrogenase CK-MB (CK-2) C-Reactive Protein NT-Pro-B Natriuret Pep Total Protein Albumin Urine WBC (Auto) 12/09/19 12/09/19 12/09/19 04:03 04:03 05:53 WBC RBC Hgb 9.1 L Hct 28.9 L MCHC RDW MCH Lymph % (Auto) [place] % (Auto) [place] # Eos # Lymph # (Auto) [place] # (Auto) Eos # (Auto) Seg Neutrophils % Seg Neuts % (Manual) Baso # (Auto) Lymphocytes % (Manual) Monocytes % (Manual) Eosinophils % (Manual) Basophils % (Manual) Seg Neutrophils # Seg Neutrophils # Man Lymphocytes # (Manual) Monocytes # (Manual) Eosinophils # (Manual) Nucleated RBC % Basophils # (Manual) APTT Heparin Anti-Xa Level 0.15 L ABG pH POC ABG pO2 ABG pO2 ABG HCO3 ABG O2 Saturation ABG Base Excess POC ABG pCO2 ABG Hemoglobin ABG Oxyhemoglobin Oxyhemoglobin Sodium Potassium Chloride Carbon Dioxide BUN Creatinine Glucose POC Glucose 124 H Lactic Acid Calcium Phosphorus Magnesium AST ALT Lactate Dehydrogenase CK-MB (CK-2) C-Reactive Protein NT-Pro-B Natriuret Pep Total Protein Albumin Urine WBC (Auto) 12/09/19 12/09/19 12/10/19 09:43 12:41 00:13 WBC RBC Hgb Hct MCHC RDW MCH Lymph % (Auto) [place] % (Auto) [place] # Eos # Lymph # (Auto) [place] # (Auto) Eos # (Auto) Seg Neutrophils % Seg Neuts % (Manual) Baso # (Auto) Lymphocytes % (Manual) Monocytes % (Manual) Eosinophils % (Manual) Basophils % (Manual) Seg Neutrophils # Seg Neutrophils # Man Lymphocytes # (Manual) Monocytes # (Manual) Eosinophils # (Manual) Nucleated RBC % Basophils # (Manual) APTT Heparin Anti-Xa Level ABG pH POC ABG pO2 ABG pO2 ABG HCO3 ABG O2 Saturation ABG Base Excess POC ABG pCO2 ABG Hemoglobin ABG Oxyhemoglobin Oxyhemoglobin Sodium Potassium Chloride Carbon Dioxide BUN 25 H Creatinine 0.6 L Glucose 131 H POC Glucose 109 H 120 H Lactic Acid Calcium Phosphorus Magnesium AST ALT Lactate Dehydrogenase CK-MB (CK-2) C-Reactive Protein NT-Pro-B Natriuret Pep Total Protein Albumin Urine WBC (Auto) 12/10/19 12/10/19 12/10/19 04:14 04:14 12:00 WBC 13.3 H RBC 3.34 L Hgb 9.6 L Hct 30.4 L MCHC RDW 15.4 H MCH Lymph % (Auto) [place] % (Auto) [place] # Eos # Lymph # (Auto) [place] # (Auto) Eos # (Auto) Seg Neutrophils % Seg Neuts % (Manual) 75.0 H Baso # (Auto) Lymphocytes % (Manual) 13.0 L Monocytes % (Manual) 8.0 H Eosinophils % (Manual) Basophils % (Manual) 2.0 H Seg Neutrophils # Seg Neutrophils # Man 10.0 H Lymphocytes # (Manual) Monocytes # (Manual) 1.1 H Eosinophils # (Manual) Nucleated RBC % Basophils # (Manual) 0.3 H APTT Heparin Anti-Xa Level ABG pH POC ABG pO2 ABG pO2 ABG HCO3 ABG O2 Saturation ABG Base Excess POC ABG pCO2 ABG Hemoglobin ABG Oxyhemoglobin Oxyhemoglobin Sodium 147 H Potassium Chloride 108.3 H Carbon Dioxide BUN 21 H Creatinine 0.6 L Glucose 104 H POC Glucose 133 H Lactic Acid Calcium Phosphorus Magnesium AST ALT Lactate Dehydrogenase CK-MB (CK-2) C-Reactive Protein NT-Pro-B Natriuret Pep Total Protein Albumin Urine WBC (Auto) 12/10/19 12/10/19 12/11/19 18:44 21:20 00:08 WBC 14.9 H RBC 3.36 L Hgb 9.6 L Hct 30.5 L MCHC RDW 15.4 H MCH Lymph % (Auto) [place] % (Auto) [place] # Eos # Lymph # (Auto) [place] # (Auto) Eos # (Auto) Seg Neutrophils % Seg Neuts % (Manual) Baso # (Auto) Lymphocytes % (Manual) Monocytes % (Manual) Eosinophils % (Manual) Basophils % (Manual) Seg Neutrophils # Seg Neutrophils # Man Lymphocytes # (Manual) Monocytes # (Manual) Eosinophils # (Manual) Nucleated RBC % Basophils # (Manual) APTT Heparin Anti-Xa Level ABG pH POC ABG pO2 ABG pO2 ABG HCO3 ABG O2 Saturation ABG Base Excess POC ABG pCO2 ABG Hemoglobin ABG Oxyhemoglobin Oxyhemoglobin Sodium Potassium Chloride Carbon Dioxide BUN Creatinine Glucose POC Glucose 119 H 134 H Lactic Acid Calcium Phosphorus Magnesium AST ALT Lactate Dehydrogenase CK-MB (CK-2) C-Reactive Protein NT-Pro-B Natriuret Pep Total Protein Albumin Urine WBC (Auto) 12/11/19 12/11/19 12/11/19 03:54 07:28 08:36 WBC 11.9 H RBC 3.25 L Hgb 9.6 L Hct 29.2 L MCHC RDW 15.7 H MCH Lymph % (Auto) [place] % (Auto) [place] # Eos # Lymph # (Auto) [place] # (Auto) Eos # (Auto) Seg Neutrophils % Seg Neuts % (Manual) Baso # (Auto) Lymphocytes % (Manual) Monocytes % (Manual) Eosinophils % (Manual) Basophils % (Manual) Seg Neutrophils # Seg Neutrophils # Man Lymphocytes # (Manual) Monocytes # (Manual) Eosinophils # (Manual) Nucleated RBC % Basophils # (Manual) APTT Heparin Anti-Xa Level 0.10 L 0.16 L ABG pH POC ABG pO2 ABG pO2 ABG HCO3 ABG O2 Saturation ABG Base Excess POC ABG pCO2 ABG Hemoglobin ABG Oxyhemoglobin Oxyhemoglobin Sodium Potassium Chloride Carbon Dioxide BUN Creatinine Glucose POC Glucose Lactic Acid Calcium Phosphorus Magnesium AST ALT Lactate Dehydrogenase CK-MB (CK-2) C-Reactive Protein NT-Pro-B Natriuret Pep Total Protein Albumin Urine WBC (Auto) 12/11/19 12/11/19 12/11/19 08:36 11:45 17:15 WBC RBC Hgb Hct MCHC RDW MCH Lymph % (Auto) [place] % (Auto) [place] # Eos # Lymph # (Auto) [place] # (Auto) Eos # (Auto) Seg Neutrophils % Seg Neuts % (Manual) Baso # (Auto) Lymphocytes % (Manual) Monocytes % (Manual) Eosinophils % (Manual) Basophils % (Manual) Seg Neutrophils # Seg Neutrophils # Man Lymphocytes # (Manual) Monocytes # (Manual) Eosinophils # (Manual) Nucleated RBC % Basophils # (Manual) APTT Heparin Anti-Xa Level ABG pH POC ABG pO2 ABG pO2 ABG HCO3 ABG O2 Saturation ABG Base Excess POC ABG pCO2 ABG Hemoglobin ABG Oxyhemoglobin Oxyhemoglobin Sodium Potassium Chloride Carbon Dioxide BUN Creatinine 0.5 L Glucose 128 H POC Glucose 136 H 109 H Lactic Acid Calcium Phosphorus Magnesium AST ALT Lactate Dehydrogenase CK-MB (CK-2) C-Reactive Protein NT-Pro-B Natriuret Pep Total Protein Albumin Urine WBC (Auto) 12/12/19 12/12/19 12/12/19 00:03 05:53 05:53 WBC RBC Hgb 8.8 L Hct 27.6 L MCHC RDW MCH Lymph % (Auto) [place] % (Auto) [place] # Eos # Lymph # (Auto) [place] # (Auto) Eos # (Auto) Seg Neutrophils % Seg Neuts % (Manual) Baso # (Auto) Lymphocytes % (Manual) Monocytes % (Manual) Eosinophils % (Manual) Basophils % (Manual) Seg Neutrophils # Seg Neutrophils # Man Lymphocytes # (Manual) Monocytes # (Manual) Eosinophils # (Manual) Nucleated RBC % Basophils # (Manual) APTT Heparin Anti-Xa Level 0.22 L ABG pH POC ABG pO2 ABG pO2 ABG HCO3 ABG O2 Saturation ABG Base Excess POC ABG pCO2 ABG Hemoglobin ABG Oxyhemoglobin Oxyhemoglobin Sodium Potassium Chloride Carbon Dioxide BUN Creatinine Glucose POC Glucose 116 H Lactic Acid Calcium Phosphorus Magnesium AST ALT Lactate Dehydrogenase CK-MB (CK-2) C-Reactive Protein NT-Pro-B Natriuret Pep Total Protein Albumin Urine WBC (Auto) 12/12/19 12/12/19 12/12/19 09:38 12:18 17:44 WBC RBC Hgb Hct MCHC RDW MCH Lymph % (Auto) [place] % (Auto) [place] # Eos # Lymph # (Auto) [place] # (Auto) Eos # (Auto) Seg Neutrophils % Seg Neuts % (Manual) Baso # (Auto) Lymphocytes % (Manual) Monocytes % (Manual) Eosinophils % (Manual) Basophils % (Manual) Seg Neutrophils # Seg Neutrophils # Man Lymphocytes # (Manual) Monocytes # (Manual) Eosinophils # (Manual) Nucleated RBC % Basophils # (Manual) APTT Heparin Anti-Xa Level ABG pH POC ABG pO2 ABG pO2 ABG HCO3 ABG O2 Saturation ABG Base Excess POC ABG pCO2 ABG Hemoglobin ABG Oxyhemoglobin Oxyhemoglobin Sodium Potassium Chloride Carbon Dioxide BUN Creatinine Glucose POC Glucose 115 H 146 H 146 H Lactic Acid Calcium Phosphorus Magnesium AST ALT Lactate Dehydrogenase CK-MB (CK-2) C-Reactive Protein NT-Pro-B Natriuret Pep Total Protein Albumin Urine WBC (Auto) 12/12/19 12/13/19 12/13/19 23:33 05:32 05:32 WBC 13.1 H RBC 3.27 L Hgb 9.5 L Hct 29.3 L MCHC RDW 15.6 H MCH Lymph % (Auto) [place] % (Auto) [place] # Eos # Lymph # (Auto) [place] # (Auto) Eos # (Auto) Seg Neutrophils % Seg Neuts % (Manual) 74.0 H Baso # (Auto) Lymphocytes % (Manual) 8.0 L Monocytes % (Manual) 9.0 H Eosinophils % (Manual) 5.0 H Basophils % (Manual) Seg Neutrophils # Seg Neutrophils # Man 9.7 H Lymphocytes # (Manual) 1.0 L Monocytes # (Manual) 1.2 H Eosinophils # (Manual) 0.7 H Nucleated RBC % Basophils # (Manual) APTT Heparin Anti-Xa Level 0.20 L ABG pH POC ABG pO2 ABG pO2 ABG HCO3 ABG O2 Saturation ABG Base Excess POC ABG pCO2 ABG Hemoglobin ABG Oxyhemoglobin Oxyhemoglobin Sodium Potassium Chloride Carbon Dioxide BUN Creatinine Glucose POC Glucose 126 H Lactic Acid Calcium Phosphorus Magnesium AST ALT Lactate Dehydrogenase CK-MB (CK-2) C-Reactive Protein NT-Pro-B Natriuret Pep Total Protein Albumin Urine WBC (Auto) 12/13/19 12/13/19 12/13/19 05:32 05:46 11:57 WBC RBC Hgb Hct MCHC RDW MCH Lymph % (Auto) [place] % (Auto) [place] # Eos # Lymph # (Auto) [place] # (Auto) Eos # (Auto) Seg Neutrophils % Seg Neuts % (Manual) Baso # (Auto) Lymphocytes % (Manual) Monocytes % (Manual) Eosinophils % (Manual) Basophils % (Manual) Seg Neutrophils # Seg Neutrophils # Man Lymphocytes # (Manual) Monocytes # (Manual) Eosinophils # (Manual) Nucleated RBC % Basophils # (Manual) APTT Heparin Anti-Xa Level ABG pH POC ABG pO2 ABG pO2 ABG HCO3 ABG O2 Saturation ABG Base Excess POC ABG pCO2 ABG Hemoglobin ABG Oxyhemoglobin Oxyhemoglobin Sodium Potassium Chloride Carbon Dioxide 31 H BUN Creatinine 0.6 L Glucose 114 H POC Glucose 118 H 133 H Lactic Acid Calcium Phosphorus Magnesium AST ALT Lactate Dehydrogenase CK-MB (CK-2) C-Reactive Protein NT-Pro-B Natriuret Pep Total Protein Albumin Urine WBC (Auto) 12/13/19 12/13/19 12/14/19 17:44 23:46 05:32 WBC RBC Hgb Hct MCHC RDW MCH Lymph % (Auto) [place] % (Auto) [place] # Eos # Lymph # (Auto) [place] # (Auto) Eos # (Auto) Seg Neutrophils % Seg Neuts % (Manual) Baso # (Auto) Lymphocytes % (Manual) Monocytes % (Manual) Eosinophils % (Manual) Basophils % (Manual) Seg Neutrophils # Seg Neutrophils # Man Lymphocytes # (Manual) Monocytes # (Manual) Eosinophils # (Manual) Nucleated RBC % Basophils # (Manual) APTT Heparin Anti-Xa Level ABG pH POC ABG pO2 ABG pO2 ABG HCO3 ABG O2 Saturation ABG Base Excess POC ABG pCO2 ABG Hemoglobin ABG Oxyhemoglobin Oxyhemoglobin Sodium Potassium Chloride Carbon Dioxide BUN Creatinine Glucose POC Glucose 161 H 126 H 139 H Lactic Acid Calcium Phosphorus Magnesium AST ALT Lactate Dehydrogenase CK-MB (CK-2) C-Reactive Protein NT-Pro-B Natriuret Pep Total Protein Albumin Urine WBC (Auto) 12/14/19 12/14/19 12/14/19 06:03 06:03 09:37 WBC RBC Hgb 9.6 L Hct 30.4 L MCHC RDW MCH Lymph % (Auto) [place] % (Auto) [place] # Eos # Lymph # (Auto) [place] # (Auto) Eos # (Auto) Seg Neutrophils % Seg Neuts % (Manual) Baso # (Auto) Lymphocytes % (Manual) Monocytes % (Manual) Eosinophils % (Manual) Basophils % (Manual) Seg Neutrophils # Seg Neutrophils # Man Lymphocytes # (Manual) Monocytes # (Manual) Eosinophils # (Manual) Nucleated RBC % Basophils # (Manual) APTT Heparin Anti-Xa Level 0.24 L ABG pH POC ABG pO2 ABG pO2 ABG HCO3 ABG O2 Saturation ABG Base Excess POC ABG pCO2 ABG Hemoglobin ABG Oxyhemoglobin Oxyhemoglobin Sodium Potassium Chloride Carbon Dioxide BUN Creatinine 0.6 L Glucose 162 H POC Glucose Lactic Acid Calcium Phosphorus Magnesium AST 71 H ALT 118 H Lactate Dehydrogenase CK-MB (CK-2) C-Reactive Protein NT-Pro-B Natriuret Pep Total Protein 6.2 L Albumin 2.3 L Urine WBC (Auto) 12/14/19 12/14/19 12/15/19 12:06 18:18 00:19 WBC RBC Hgb Hct MCHC RDW MCH Lymph % (Auto) [place] % (Auto) [place] # Eos # Lymph # (Auto) [place] # (Auto) Eos # (Auto) Seg Neutrophils % Seg Neuts % (Manual) Baso # (Auto) Lymphocytes % (Manual) Monocytes % (Manual) Eosinophils % (Manual) Basophils % (Manual) Seg Neutrophils # Seg Neutrophils # Man Lymphocytes # (Manual) Monocytes # (Manual) Eosinophils # (Manual) Nucleated RBC % Basophils # (Manual) APTT Heparin Anti-Xa Level ABG pH POC ABG pO2 ABG pO2 ABG HCO3 ABG O2 Saturation ABG Base Excess POC ABG pCO2 ABG Hemoglobin ABG Oxyhemoglobin Oxyhemoglobin Sodium Potassium Chloride Carbon Dioxide BUN Creatinine Glucose POC Glucose 147 H 166 H 123 H Lactic Acid Calcium Phosphorus Magnesium AST ALT Lactate Dehydrogenase CK-MB (CK-2) C-Reactive Protein NT-Pro-B Natriuret Pep Total Protein Albumin Urine WBC (Auto) 12/15/19 12/15/19 12/15/19 05:28 05:29 05:29 WBC 14.9 H RBC 3.19 L Hgb 9.1 L Hct 28.7 L MCHC RDW 16.0 H MCH Lymph % (Auto) [place] % (Auto) [place] # Eos # Lymph # (Auto) [place] # (Auto) Eos # (Auto) Seg Neutrophils % Seg Neuts % (Manual) Baso # (Auto) Lymphocytes % (Manual) Monocytes % (Manual) Eosinophils % (Manual) Basophils % (Manual) Seg Neutrophils # Seg Neutrophils # Man Lymphocytes # (Manual) Monocytes # (Manual) Eosinophils # (Manual) Nucleated RBC % Basophils # (Manual) APTT Heparin Anti-Xa Level 0.19 L ABG pH POC ABG pO2 ABG pO2 ABG HCO3 ABG O2 Saturation ABG Base Excess POC ABG pCO2 ABG Hemoglobin ABG Oxyhemoglobin Oxyhemoglobin Sodium Potassium Chloride Carbon Dioxide BUN Creatinine 0.6 L Glucose 110 H POC Glucose Lactic Acid Calcium Phosphorus Magnesium AST ALT Lactate Dehydrogenase CK-MB (CK-2) C-Reactive Protein NT-Pro-B Natriuret Pep Total Protein Albumin Urine WBC (Auto) 12/15/19 12/15/19 12/15/19 05:53 11:50 17:26 WBC RBC Hgb Hct MCHC RDW MCH Lymph % (Auto) [place] % (Auto) [place] # Eos # Lymph # (Auto) [place] # (Auto) Eos # (Auto) Seg Neutrophils % Seg Neuts % (Manual) Baso # (Auto) Lymphocytes % (Manual) Monocytes % (Manual) Eosinophils % (Manual) Basophils % (Manual) Seg Neutrophils # Seg Neutrophils # Man Lymphocytes # (Manual) Monocytes # (Manual) Eosinophils # (Manual) Nucleated RBC % Basophils # (Manual) APTT Heparin Anti-Xa Level ABG pH POC ABG pO2 ABG pO2 ABG HCO3 ABG O2 Saturation ABG Base Excess POC ABG pCO2 ABG Hemoglobin ABG Oxyhemoglobin Oxyhemoglobin Sodium Potassium Chloride Carbon Dioxide BUN Creatinine Glucose POC Glucose 119 H 132 H 128 H Lactic Acid Calcium Phosphorus Magnesium AST ALT Lactate Dehydrogenase CK-MB (CK-2) C-Reactive Protein NT-Pro-B Natriuret Pep Total Protein Albumin Urine WBC (Auto) 12/15/19 12/16/19 12/16/19 23:11 05:30 05:46 WBC RBC Hgb 8.8 L Hct 27.9 L MCHC RDW MCH Lymph % (Auto) [place] % (Auto) [place] # Eos # Lymph # (Auto) [place] # (Auto) Eos # (Auto) Seg Neutrophils % Seg Neuts % (Manual) Baso # (Auto) Lymphocytes % (Manual) Monocytes % (Manual) Eosinophils % (Manual) Basophils % (Manual) Seg Neutrophils # Seg Neutrophils # Man Lymphocytes # (Manual) Monocytes # (Manual) Eosinophils # (Manual) Nucleated RBC % Basophils # (Manual) APTT Heparin Anti-Xa Level ABG pH POC ABG pO2 ABG pO2 ABG HCO3 ABG O2 Saturation ABG Base Excess POC ABG pCO2 ABG Hemoglobin ABG Oxyhemoglobin Oxyhemoglobin Sodium Potassium Chloride Carbon Dioxide BUN Creatinine Glucose POC Glucose 150 H 134 H Lactic Acid Calcium Phosphorus Magnesium AST ALT Lactate Dehydrogenase CK-MB (CK-2) C-Reactive Protein NT-Pro-B Natriuret Pep Total Protein Albumin Urine WBC (Auto) 12/16/19 12/16/19 12/16/19 05:46 05:46 11:44 WBC RBC Hgb Hct MCHC RDW MCH Lymph % (Auto) [place] % (Auto) [place] # Eos # Lymph # (Auto) [place] # (Auto) Eos # (Auto) Seg Neutrophils % Seg Neuts % (Manual) Baso # (Auto) Lymphocytes % (Manual) Monocytes % (Manual) Eosinophils % (Manual) Basophils % (Manual) Seg Neutrophils # Seg Neutrophils # Man Lymphocytes # (Manual) Monocytes # (Manual) Eosinophils # (Manual) Nucleated RBC % Basophils # (Manual) APTT Heparin Anti-Xa Level 0.20 L ABG pH POC ABG pO2 ABG pO2 ABG HCO3 ABG O2 Saturation ABG Base Excess POC ABG pCO2 ABG Hemoglobin ABG Oxyhemoglobin Oxyhemoglobin Sodium Potassium Chloride Carbon Dioxide 31 H BUN Creatinine 0.5 L Glucose 147 H POC Glucose 164 H Lactic Acid Calcium Phosphorus Magnesium AST ALT Lactate Dehydrogenase CK-MB (CK-2) C-Reactive Protein NT-Pro-B Natriuret Pep Total Protein Albumin Urine WBC (Auto) 12/16/19 12/16/19 12/17/19 17:17 23:49 05:30 WBC 13.9 H RBC 3.27 L Hgb 9.4 L Hct 29.2 L MCHC RDW 16.0 H MCH Lymph % (Auto) [place] % (Auto) 8.8 H [place] # Eos # Lymph # (Auto) [place] # (Auto) 1.2 H Eos # (Auto) 0.5 H Seg Neutrophils % 70.5 H Seg Neuts % (Manual) Baso # (Auto) 0.2 H Lymphocytes % (Manual) Monocytes % (Manual) Eosinophils % (Manual) Basophils % (Manual) Seg Neutrophils # 9.8 H Seg Neutrophils # Man Lymphocytes # (Manual) Monocytes # (Manual) Eosinophils # (Manual) Nucleated RBC % Basophils # (Manual) APTT Heparin Anti-Xa Level ABG pH POC ABG pO2 ABG pO2 ABG HCO3 ABG O2 Saturation ABG Base Excess POC ABG pCO2 ABG Hemoglobin ABG Oxyhemoglobin Oxyhemoglobin Sodium Potassium Chloride Carbon Dioxide BUN Creatinine Glucose POC Glucose 162 H 144 H Lactic Acid Calcium Phosphorus Magnesium AST ALT Lactate Dehydrogenase CK-MB (CK-2) C-Reactive Protein NT-Pro-B Natriuret Pep Total Protein Albumin Urine WBC (Auto) 12/17/19 12/17/19 12/17/19 05:30 06:06 11:50 WBC RBC Hgb Hct MCHC RDW MCH Lymph % (Auto) [place] % (Auto) [place] # Eos # Lymph # (Auto) [place] # (Auto) Eos # (Auto) Seg Neutrophils % Seg Neuts % (Manual) Baso # (Auto) Lymphocytes % (Manual) Monocytes % (Manual) Eosinophils % (Manual) Basophils % (Manual) Seg Neutrophils # Seg Neutrophils # Man Lymphocytes # (Manual) Monocytes # (Manual) Eosinophils # (Manual) Nucleated RBC % Basophils # (Manual) APTT Heparin Anti-Xa Level ABG pH POC ABG pO2 ABG pO2 ABG HCO3 ABG O2 Saturation ABG Base Excess POC ABG pCO2 ABG Hemoglobin ABG Oxyhemoglobin Oxyhemoglobin Sodium Potassium Chloride 97.4 L Carbon Dioxide 32 H BUN Creatinine 0.5 L Glucose 135 H POC Glucose 151 H 140 H Lactic Acid Calcium Phosphorus Magnesium AST ALT Lactate Dehydrogenase CK-MB (CK-2) C-Reactive Protein NT-Pro-B Natriuret Pep Total Protein Albumin Urine WBC (Auto) 12/17/19 12/17/19 12/18/19 17:50 23:46 05:17 WBC RBC Hgb 8.8 L Hct 28.0 L MCHC RDW MCH Lymph % (Auto) [place] % (Auto) [place] # Eos # Lymph # (Auto) [place] # (Auto) Eos # (Auto) Seg Neutrophils % Seg Neuts % (Manual) Baso # (Auto) Lymphocytes % (Manual) Monocytes % (Manual) Eosinophils % (Manual) Basophils % (Manual) Seg Neutrophils # Seg Neutrophils # Man Lymphocytes # (Manual) Monocytes # (Manual) Eosinophils # (Manual) Nucleated RBC % Basophils # (Manual) APTT Heparin Anti-Xa Level ABG pH POC ABG pO2 ABG pO2 ABG HCO3 ABG O2 Saturation ABG Base Excess POC ABG pCO2 ABG Hemoglobin ABG Oxyhemoglobin Oxyhemoglobin Sodium Potassium Chloride Carbon Dioxide BUN Creatinine Glucose POC Glucose 158 H 150 H Lactic Acid Calcium Phosphorus Magnesium AST ALT Lactate Dehydrogenase CK-MB (CK-2) C-Reactive Protein NT-Pro-B Natriuret Pep Total Protein Albumin Urine WBC (Auto) 12/18/19 12/18/19 12/18/19 05:17 05:49 11:12 WBC RBC Hgb Hct MCHC RDW MCH Lymph % (Auto) [place] % (Auto) [place] # Eos # Lymph # (Auto) [place] # (Auto) Eos # (Auto) Seg Neutrophils % Seg Neuts % (Manual) Baso # (Auto) Lymphocytes % (Manual) Monocytes % (Manual) Eosinophils % (Manual) Basophils % (Manual) Seg Neutrophils # Seg Neutrophils # Man Lymphocytes # (Manual) Monocytes # (Manual) Eosinophils # (Manual) Nucleated RBC % Basophils # (Manual) APTT Heparin Anti-Xa Level 0.16 L ABG pH POC ABG pO2 ABG pO2 ABG HCO3 ABG O2 Saturation ABG Base Excess POC ABG pCO2 ABG Hemoglobin ABG Oxyhemoglobin Oxyhemoglobin Sodium Potassium Chloride Carbon Dioxide BUN Creatinine Glucose POC Glucose 127 H 191 H Lactic Acid Calcium Phosphorus Magnesium AST ALT Lactate Dehydrogenase CK-MB (CK-2) C-Reactive Protein NT-Pro-B Natriuret Pep Total Protein Albumin Urine WBC (Auto) 12/18/19 12/18/19 12/19/19 17:03 20:16 00:08 WBC RBC Hgb Hct MCHC RDW MCH Lymph % (Auto) [place] % (Auto) [place] # Eos # Lymph # (Auto) [place] # (Auto) Eos # (Auto) Seg Neutrophils % Seg Neuts % (Manual) Baso # (Auto) Lymphocytes % (Manual) Monocytes % (Manual) Eosinophils % (Manual) Basophils % (Manual) Seg Neutrophils # Seg Neutrophils # Man Lymphocytes # (Manual) Monocytes # (Manual) Eosinophils # (Manual) Nucleated RBC % Basophils # (Manual) APTT Heparin Anti-Xa Level ABG pH POC ABG pO2 ABG pO2 ABG HCO3 ABG O2 Saturation ABG Base Excess POC ABG pCO2 ABG Hemoglobin ABG Oxyhemoglobin Oxyhemoglobin Sodium Potassium Chloride Carbon Dioxide BUN Creatinine Glucose POC Glucose 133 H 128 H 129 H Lactic Acid Calcium Phosphorus Magnesium AST ALT Lactate Dehydrogenase CK-MB (CK-2) C-Reactive Protein NT-Pro-B Natriuret Pep Total Protein Albumin Urine WBC (Auto) 12/19/19 12/19/19 12/19/19 04:45 04:45 05:35 WBC RBC Hgb Hct MCHC RDW MCH Lymph % (Auto) [place] % (Auto) [place] # Eos # Lymph # (Auto) [place] # (Auto) Eos # (Auto) Seg Neutrophils % Seg Neuts % (Manual) Baso # (Auto) Lymphocytes % (Manual) Monocytes % (Manual) Eosinophils % (Manual) Basophils % (Manual) Seg Neutrophils # Seg Neutrophils # Man Lymphocytes # (Manual) Monocytes # (Manual) Eosinophils # (Manual) Nucleated RBC % Basophils # (Manual) APTT Heparin Anti-Xa Level 0.17 L ABG pH POC ABG pO2 ABG pO2 ABG HCO3 ABG O2 Saturation ABG Base Excess POC ABG pCO2 ABG Hemoglobin ABG Oxyhemoglobin Oxyhemoglobin Sodium Potassium Chloride Carbon Dioxide BUN Creatinine Glucose POC Glucose 120 H Lactic Acid Calcium Phosphorus Magnesium AST ALT Lactate Dehydrogenase 228 H CK-MB (CK-2) C-Reactive Protein NT-Pro-B Natriuret Pep Total Protein Albumin Urine WBC (Auto) 12/19/19 12/19/19 12/19/19 09:20 11:32 11:32 WBC 14.6 H RBC 3.08 L Hgb 9.0 L Hct 26.8 L MCHC RDW 15.9 H MCH Lymph % (Auto) [place] % (Auto) [place] # Eos # Lymph # (Auto) [place] # (Auto) Eos # (Auto) Seg Neutrophils % Seg Neuts % (Manual) 82.0 H Baso # (Auto) Lymphocytes % (Manual) 10.0 L Monocytes % (Manual) Eosinophils % (Manual) Basophils % (Manual) Seg Neutrophils # Seg Neutrophils # Man 12.0 H Lymphocytes # (Manual) Monocytes # (Manual) 0.9 H Eosinophils # (Manual) Nucleated RBC % 1.0 H Basophils # (Manual) APTT Heparin Anti-Xa Level ABG pH 7.451 H POC ABG pO2 ABG pO2 62.6 L ABG HCO3 33.2 H ABG O2 Saturation 93.8 L ABG Base Excess 8.3 H POC ABG pCO2 ABG Hemoglobin 8.3 L ABG Oxyhemoglobin Oxyhemoglobin 91.9 L Sodium Potassium Chloride 95.0 L Carbon Dioxide 33 H BUN 22 H Creatinine 0.6 L Glucose 150 H POC Glucose Lactic Acid Calcium Phosphorus Magnesium AST ALT Lactate Dehydrogenase CK-MB (CK-2) C-Reactive Protein NT-Pro-B Natriuret Pep Total Protein 6.2 L Albumin 2.4 L Urine WBC (Auto) 12/19/19 12/19/19 12/20/19 11:56 18:17 00:09 WBC RBC Hgb Hct MCHC RDW MCH Lymph % (Auto) [place] % (Auto) [place] # Eos # Lymph # (Auto) [place] # (Auto) Eos # (Auto) Seg Neutrophils % Seg Neuts % (Manual) Baso # (Auto) Lymphocytes % (Manual) Monocytes % (Manual) Eosinophils % (Manual) Basophils % (Manual) Seg Neutrophils # Seg Neutrophils # Man Lymphocytes # (Manual) Monocytes # (Manual) Eosinophils # (Manual) Nucleated RBC % Basophils # (Manual) APTT Heparin Anti-Xa Level ABG pH POC ABG pO2 ABG pO2 ABG HCO3 ABG O2 Saturation ABG Base Excess POC ABG pCO2 ABG Hemoglobin ABG Oxyhemoglobin Oxyhemoglobin Sodium Potassium Chloride Carbon Dioxide BUN Creatinine Glucose POC Glucose 156 H 156 H 155 H Lactic Acid Calcium Phosphorus Magnesium AST ALT Lactate Dehydrogenase CK-MB (CK-2) C-Reactive Protein NT-Pro-B Natriuret Pep Total Protein Albumin Urine WBC (Auto) 12/20/19 12/20/19 12/20/19 05:26 06:02 18:17 WBC RBC Hgb Hct MCHC RDW MCH Lymph % (Auto) [place] % (Auto) [place] # Eos # Lymph # (Auto) [place] # (Auto) Eos # (Auto) Seg Neutrophils % Seg Neuts % (Manual) Baso # (Auto) Lymphocytes % (Manual) Monocytes % (Manual) Eosinophils % (Manual) Basophils % (Manual) Seg Neutrophils # Seg Neutrophils # Man Lymphocytes # (Manual) Monocytes # (Manual) Eosinophils # (Manual) Nucleated RBC % Basophils # (Manual) APTT Heparin Anti-Xa Level 0.19 L ABG pH POC ABG pO2 ABG pO2 ABG HCO3 ABG O2 Saturation ABG Base Excess POC ABG pCO2 ABG Hemoglobin ABG Oxyhemoglobin Oxyhemoglobin Sodium Potassium Chloride Carbon Dioxide BUN Creatinine Glucose POC Glucose 137 H 128 H Lactic Acid Calcium Phosphorus Magnesium AST ALT Lactate Dehydrogenase CK-MB (CK-2) C-Reactive Protein NT-Pro-B Natriuret Pep Total Protein Albumin Urine WBC (Auto) 12/20/19 12/21/19 12/21/19 23:34 05:31 05:31 WBC 12.7 H RBC 3.09 L Hgb 8.9 L Hct 27.4 L MCHC RDW 15.8 H MCH Lymph % (Auto) 12.1 L [place] % (Auto) 7.8 H [place] # Eos # Lymph # (Auto) [place] # (Auto) 1.0 H Eos # (Auto) Seg Neutrophils % 77.1 H Seg Neuts % (Manual) Baso # (Auto) Lymphocytes % (Manual) Monocytes % (Manual) Eosinophils % (Manual) Basophils % (Manual) Seg Neutrophils # 9.8 H Seg Neutrophils # Man Lymphocytes # (Manual) Monocytes # (Manual) Eosinophils # (Manual) Nucleated RBC % Basophils # (Manual) APTT Heparin Anti-Xa Level ABG pH POC ABG pO2 ABG pO2 ABG HCO3 ABG O2 Saturation ABG Base Excess POC ABG pCO2 ABG Hemoglobin ABG Oxyhemoglobin Oxyhemoglobin Sodium Potassium Chloride 96.9 L Carbon Dioxide 37 H BUN 27 H Creatinine 0.7 L Glucose 140 H POC Glucose 145 H Lactic Acid Calcium Phosphorus Magnesium AST ALT Lactate Dehydrogenase CK-MB (CK-2) C-Reactive Protein NT-Pro-B Natriuret Pep Total Protein Albumin Urine WBC (Auto) 12/21/19 12/21/19 12/21/19 05:38 10:13 11:51 WBC RBC Hgb Hct MCHC RDW MCH Lymph % (Auto) [place] % (Auto) [place] # Eos # Lymph # (Auto) [place] # (Auto) Eos # (Auto) Seg Neutrophils % Seg Neuts % (Manual) Baso # (Auto) Lymphocytes % (Manual) Monocytes % (Manual) Eosinophils % (Manual) Basophils % (Manual) Seg Neutrophils # Seg Neutrophils # Man Lymphocytes # (Manual) Monocytes # (Manual) Eosinophils # (Manual) Nucleated RBC % Basophils # (Manual) APTT 23.9 L Heparin Anti-Xa Level < 0.10 L ABG pH POC ABG pO2 ABG pO2 ABG HCO3 ABG O2 Saturation ABG Base Excess POC ABG pCO2 ABG Hemoglobin ABG Oxyhemoglobin Oxyhemoglobin Sodium Potassium Chloride Carbon Dioxide BUN Creatinine Glucose POC Glucose 151 H 145 H Lactic Acid Calcium Phosphorus Magnesium AST ALT Lactate Dehydrogenase CK-MB (CK-2) C-Reactive Protein NT-Pro-B Natriuret Pep Total Protein Albumin Urine WBC (Auto) 12/21/19 12/22/19 12/22/19 17:16 00:01 01:33 WBC RBC Hgb Hct MCHC RDW MCH Lymph % (Auto) [place] % (Auto) [place] # Eos # Lymph # (Auto) [place] # (Auto) Eos # (Auto) Seg Neutrophils % Seg Neuts % (Manual) Baso # (Auto) Lymphocytes % (Manual) Monocytes % (Manual) Eosinophils % (Manual) Basophils % (Manual) Seg Neutrophils # Seg Neutrophils # Man Lymphocytes # (Manual) Monocytes # (Manual) Eosinophils # (Manual) Nucleated RBC % Basophils # (Manual) APTT Heparin Anti-Xa Level 0.10 L ABG pH POC ABG pO2 ABG pO2 ABG HCO3 ABG O2 Saturation ABG Base Excess POC ABG pCO2 ABG Hemoglobin ABG Oxyhemoglobin Oxyhemoglobin Sodium Potassium Chloride Carbon Dioxide BUN Creatinine Glucose POC Glucose 167 H 179 H Lactic Acid Calcium Phosphorus Magnesium AST ALT Lactate Dehydrogenase CK-MB (CK-2) C-Reactive Protein NT-Pro-B Natriuret Pep Total Protein Albumin Urine WBC (Auto) 12/22/19 12/22/19 12/22/19 03:22 05:10 05:10 WBC 13.8 H RBC 3.20 L Hgb 8.9 L Hct 28.1 L MCHC RDW 15.9 H MCH Lymph % (Auto) [place] % (Auto) [place] # Eos # Lymph # (Auto) [place] # (Auto) Eos # (Auto) Seg Neutrophils % Seg Neuts % (Manual) Baso # (Auto) Lymphocytes % (Manual) Monocytes % (Manual) Eosinophils % (Manual) Basophils % (Manual) Seg Neutrophils # Seg Neutrophils # Man Lymphocytes # (Manual) Monocytes # (Manual) Eosinophils # (Manual) Nucleated RBC % Basophils # (Manual) APTT Heparin Anti-Xa Level ABG pH POC ABG pO2 52.3 L ABG pO2 ABG HCO3 ABG O2 Saturation ABG Base Excess POC ABG pCO2 52.9 H ABG Hemoglobin 10.7 L ABG Oxyhemoglobin 84 L Oxyhemoglobin Sodium Potassium Chloride 96.6 L Carbon Dioxide BUN 25 H Creatinine 0.7 L Glucose 129 H POC Glucose Lactic Acid Calcium Phosphorus Magnesium AST ALT Lactate Dehydrogenase CK-MB (CK-2) C-Reactive Protein NT-Pro-B Natriuret Pep Total Protein Albumin Urine WBC (Auto) 12/22/19 12/22/19 12/22/19 05:18 12:32 12:43 WBC RBC Hgb Hct MCHC RDW MCH Lymph % (Auto) [place] % (Auto) [place] # Eos # Lymph # (Auto) [place] # (Auto) Eos # (Auto) Seg Neutrophils % Seg Neuts % (Manual) Baso # (Auto) Lymphocytes % (Manual) Monocytes % (Manual) Eosinophils % (Manual) Basophils % (Manual) Seg Neutrophils # Seg Neutrophils # Man Lymphocytes # (Manual) Monocytes # (Manual) Eosinophils # (Manual) Nucleated RBC % Basophils # (Manual) APTT Heparin Anti-Xa Level 0.18 L ABG pH POC ABG pO2 ABG pO2 ABG HCO3 ABG O2 Saturation ABG Base Excess POC ABG pCO2 ABG Hemoglobin ABG Oxyhemoglobin Oxyhemoglobin Sodium Potassium Chloride Carbon Dioxide BUN Creatinine Glucose POC Glucose 131 H 208 H Lactic Acid Calcium Phosphorus Magnesium AST ALT Lactate Dehydrogenase CK-MB (CK-2) C-Reactive Protein NT-Pro-B Natriuret Pep Total Protein Albumin Urine WBC (Auto) 12/22/19 12/22/19 12/23/19 17:44 23:20 03:51 WBC 15.2 H RBC 3.43 L Hgb 9.6 L Hct 30.3 L MCHC RDW 15.9 H MCH Lymph % (Auto) [place] % (Auto) [place] # Eos # Lymph # (Auto) [place] # (Auto) Eos # (Auto) Seg Neutrophils % Seg Neuts % (Manual) Baso # (Auto) Lymphocytes % (Manual) Monocytes % (Manual) Eosinophils % (Manual) Basophils % (Manual) Seg Neutrophils # Seg Neutrophils # Man Lymphocytes # (Manual) Monocytes # (Manual) Eosinophils # (Manual) Nucleated RBC % Basophils # (Manual) APTT Heparin Anti-Xa Level ABG pH POC ABG pO2 ABG pO2 ABG HCO3 ABG O2 Saturation ABG Base Excess POC ABG pCO2 ABG Hemoglobin ABG Oxyhemoglobin Oxyhemoglobin Sodium Potassium Chloride Carbon Dioxide BUN Creatinine Glucose POC Glucose 209 H 119 H Lactic Acid Calcium Phosphorus Magnesium AST ALT Lactate Dehydrogenase CK-MB (CK-2) C-Reactive Protein NT-Pro-B Natriuret Pep Total Protein Albumin Urine WBC (Auto) 12/23/19 12/23/19 12/23/19 03:51 05:31 12:09 WBC RBC Hgb Hct MCHC RDW MCH Lymph % (Auto) [place] % (Auto) [place] # Eos # Lymph # (Auto) [place] # (Auto) Eos # (Auto) Seg Neutrophils % Seg Neuts % (Manual) Baso # (Auto) Lymphocytes % (Manual) Monocytes % (Manual) Eosinophils % (Manual) Basophils % (Manual) Seg Neutrophils # Seg Neutrophils # Man Lymphocytes # (Manual) Monocytes # (Manual) Eosinophils # (Manual) Nucleated RBC % Basophils # (Manual) APTT Heparin Anti-Xa Level ABG pH POC ABG pO2 ABG pO2 ABG HCO3 ABG O2 Saturation ABG Base Excess POC ABG pCO2 ABG Hemoglobin ABG Oxyhemoglobin Oxyhemoglobin Sodium Potassium Chloride 97.2 L Carbon Dioxide 31 H BUN 23 H Creatinine 0.6 L Glucose 153 H POC Glucose 149 H 144 H Lactic Acid Calcium Phosphorus Magnesium AST ALT Lactate Dehydrogenase CK-MB (CK-2) C-Reactive Protein NT-Pro-B Natriuret Pep Total Protein Albumin Urine WBC (Auto) 12/23/19 12/23/19 12/23/19 15:30 17:49 23:31 WBC RBC Hgb Hct MCHC RDW MCH Lymph % (Auto) [place] % (Auto) [place] # Eos # Lymph # (Auto) [place] # (Auto) Eos # (Auto) Seg Neutrophils % Seg Neuts % (Manual) Baso # (Auto) Lymphocytes % (Manual) Monocytes % (Manual) Eosinophils % (Manual) Basophils % (Manual) Seg Neutrophils # Seg Neutrophils # Man Lymphocytes # (Manual) Monocytes # (Manual) Eosinophils # (Manual) Nucleated RBC % Basophils # (Manual) APTT Heparin Anti-Xa Level 0.21 L ABG pH POC ABG pO2 ABG pO2 ABG HCO3 ABG O2 Saturation ABG Base Excess POC ABG pCO2 ABG Hemoglobin ABG Oxyhemoglobin Oxyhemoglobin Sodium Potassium Chloride Carbon Dioxide BUN Creatinine Glucose POC Glucose 192 H 151 H Lactic Acid Calcium Phosphorus Magnesium AST ALT Lactate Dehydrogenase CK-MB (CK-2) C-Reactive Protein NT-Pro-B Natriuret Pep Total Protein Albumin Urine WBC (Auto) 12/24/19 12/24/19 12/24/19 05:34 12:13 16:50 WBC RBC Hgb Hct MCHC RDW MCH Lymph % (Auto) [place] % (Auto) [place] # Eos # Lymph # (Auto) [place] # (Auto) Eos # (Auto) Seg Neutrophils % Seg Neuts % (Manual) Baso # (Auto) Lymphocytes % (Manual) Monocytes % (Manual) Eosinophils % (Manual) Basophils % (Manual) Seg Neutrophils # Seg Neutrophils # Man Lymphocytes # (Manual) Monocytes # (Manual) Eosinophils # (Manual) Nucleated RBC % Basophils # (Manual) APTT Heparin Anti-Xa Level 0.16 L ABG pH POC ABG pO2 ABG pO2 ABG HCO3 ABG O2 Saturation ABG Base Excess POC ABG pCO2 ABG Hemoglobin ABG Oxyhemoglobin Oxyhemoglobin Sodium Potassium Chloride Carbon Dioxide BUN Creatinine Glucose POC Glucose 145 H 124 H Lactic Acid Calcium Phosphorus Magnesium AST ALT Lactate Dehydrogenase CK-MB (CK-2) C-Reactive Protein NT-Pro-B Natriuret Pep Total Protein Albumin Urine WBC (Auto) 12/24/19 12/25/19 12/25/19 17:53 00:14 04:18 WBC 12.9 H RBC 3.30 L Hgb 9.1 L Hct 28.8 L MCHC RDW 16.4 H MCH Lymph % (Auto) [place] % (Auto) 7.8 H [place] # Eos # Lymph # (Auto) [place] # (Auto) 1.0 H Eos # (Auto) Seg Neutrophils % 75.5 H Seg Neuts % (Manual) Baso # (Auto) Lymphocytes % (Manual) Monocytes % (Manual) Eosinophils % (Manual) Basophils % (Manual) Seg Neutrophils # 9.7 H Seg Neutrophils # Man Lymphocytes # (Manual) Monocytes # (Manual) Eosinophils # (Manual) Nucleated RBC % Basophils # (Manual) APTT Heparin Anti-Xa Level ABG pH POC ABG pO2 ABG pO2 ABG HCO3 ABG O2 Saturation ABG Base Excess POC ABG pCO2 ABG Hemoglobin ABG Oxyhemoglobin Oxyhemoglobin Sodium Potassium Chloride Carbon Dioxide BUN Creatinine Glucose POC Glucose 164 H 148 H Lactic Acid Calcium Phosphorus Magnesium AST ALT Lactate Dehydrogenase CK-MB (CK-2) C-Reactive Protein NT-Pro-B Natriuret Pep Total Protein Albumin Urine WBC (Auto) 12/25/19 12/25/19 12/25/19 04:18 05:38 11:44 WBC RBC Hgb Hct MCHC RDW MCH Lymph % (Auto) [place] % (Auto) [place] # Eos # Lymph # (Auto) [place] # (Auto) Eos # (Auto) Seg Neutrophils % Seg Neuts % (Manual) Baso # (Auto) Lymphocytes % (Manual) Monocytes % (Manual) Eosinophils % (Manual) Basophils % (Manual) Seg Neutrophils # Seg Neutrophils # Man Lymphocytes # (Manual) Monocytes # (Manual) Eosinophils # (Manual) Nucleated RBC % Basophils # (Manual) APTT Heparin Anti-Xa Level ABG pH POC ABG pO2 ABG pO2 ABG HCO3 ABG O2 Saturation ABG Base Excess POC ABG pCO2 ABG Hemoglobin ABG Oxyhemoglobin Oxyhemoglobin Sodium Potassium Chloride Carbon Dioxide 33 H BUN 27 H Creatinine 0.6 L Glucose 132 H POC Glucose 152 H 166 H Lactic Acid Calcium Phosphorus Magnesium AST ALT Lactate Dehydrogenase CK-MB (CK-2) C-Reactive Protein NT-Pro-B Natriuret Pep Total Protein Albumin Urine WBC (Auto) 12/25/19 12/26/19 12/26/19 18:29 00:17 00:18 WBC RBC Hgb Hct MCHC RDW MCH Lymph % (Auto) [place] % (Auto) [place] # Eos # Lymph # (Auto) [place] # (Auto) Eos # (Auto) Seg Neutrophils % Seg Neuts % (Manual) Baso # (Auto) Lymphocytes % (Manual) Monocytes % (Manual) Eosinophils % (Manual) Basophils % (Manual) Seg Neutrophils # Seg Neutrophils # Man Lymphocytes # (Manual) Monocytes # (Manual) Eosinophils # (Manual) Nucleated RBC % Basophils # (Manual) APTT Heparin Anti-Xa Level ABG pH POC ABG pO2 ABG pO2 ABG HCO3 ABG O2 Saturation ABG Base Excess POC ABG pCO2 ABG Hemoglobin ABG Oxyhemoglobin Oxyhemoglobin Sodium Potassium Chloride 97.8 L Carbon Dioxide BUN 25 H Creatinine 0.6 L Glucose 140 H POC Glucose 194 H 151 H Lactic Acid Calcium Phosphorus Magnesium AST ALT Lactate Dehydrogenase CK-MB (CK-2) C-Reactive Protein NT-Pro-B Natriuret Pep Total Protein Albumin Urine WBC (Auto) 12/26/19 12/26/19 12/26/19 05:36 11:41 17:50 WBC RBC Hgb Hct MCHC RDW MCH Lymph % (Auto) [place] % (Auto) [place] # Eos # Lymph # (Auto) [place] # (Auto) Eos # (Auto) Seg Neutrophils % Seg Neuts % (Manual) Baso # (Auto) Lymphocytes % (Manual) Monocytes % (Manual) Eosinophils % (Manual) Basophils % (Manual) Seg Neutrophils # Seg Neutrophils # Man Lymphocytes # (Manual) Monocytes # (Manual) Eosinophils # (Manual) Nucleated RBC % Basophils # (Manual) APTT Heparin Anti-Xa Level ABG pH POC ABG pO2 ABG pO2 ABG HCO3 ABG O2 Saturation ABG Base Excess POC ABG pCO2 ABG Hemoglobin ABG Oxyhemoglobin Oxyhemoglobin Sodium Potassium Chloride Carbon Dioxide BUN Creatinine Glucose POC Glucose 156 H 148 H 139 H Lactic Acid Calcium Phosphorus Magnesium AST ALT Lactate Dehydrogenase CK-MB (CK-2) C-Reactive Protein NT-Pro-B Natriuret Pep Total Protein Albumin Urine WBC (Auto) 12/26/19 12/27/19 12/27/19 23:19 05:34 12:02 WBC RBC Hgb Hct MCHC RDW MCH Lymph % (Auto) [place] % (Auto) [place] # Eos # Lymph # (Auto) [place] # (Auto) Eos # (Auto) Seg Neutrophils % Seg Neuts % (Manual) Baso # (Auto) Lymphocytes % (Manual) Monocytes % (Manual) Eosinophils % (Manual) Basophils % (Manual) Seg Neutrophils # Seg Neutrophils # Man Lymphocytes # (Manual) Monocytes # (Manual) Eosinophils # (Manual) Nucleated RBC % Basophils # (Manual) APTT Heparin Anti-Xa Level ABG pH POC ABG pO2 ABG pO2 ABG HCO3 ABG O2 Saturation ABG Base Excess POC ABG pCO2 ABG Hemoglobin ABG Oxyhemoglobin Oxyhemoglobin Sodium Potassium Chloride Carbon Dioxide BUN Creatinine Glucose POC Glucose 161 H 145 H 157 H Lactic Acid Calcium Phosphorus Magnesium AST ALT Lactate Dehydrogenase CK-MB (CK-2) C-Reactive Protein NT-Pro-B Natriuret Pep Total Protein Albumin Urine WBC (Auto) 12/27/19 12/27/19 12/27/19 17:35 20:11 23:00 WBC RBC Hgb Hct MCHC RDW MCH Lymph % (Auto) [place] % (Auto) [place] # Eos # Lymph # (Auto) [place] # (Auto) Eos # (Auto) Seg Neutrophils % Seg Neuts % (Manual) Baso # (Auto) Lymphocytes % (Manual) Monocytes % (Manual) Eosinophils % (Manual) Basophils % (Manual) Seg Neutrophils # Seg Neutrophils # Man Lymphocytes # (Manual) Monocytes # (Manual) Eosinophils # (Manual) Nucleated RBC % Basophils # (Manual) APTT Heparin Anti-Xa Level 0.19 L ABG pH POC ABG pO2 ABG pO2 ABG HCO3 ABG O2 Saturation ABG Base Excess POC ABG pCO2 ABG Hemoglobin ABG Oxyhemoglobin Oxyhemoglobin Sodium Potassium Chloride Carbon Dioxide BUN Creatinine Glucose POC Glucose 158 H 155 H Lactic Acid Calcium Phosphorus Magnesium AST ALT Lactate Dehydrogenase CK-MB (CK-2) C-Reactive Protein NT-Pro-B Natriuret Pep Total Protein Albumin Urine WBC (Auto) 12/27/19 12/28/19 12/28/19 23:45 02:41 02:41 WBC 13.0 H RBC 3.48 L Hgb 9.5 L Hct 30.6 L MCHC 31 L RDW 16.6 H MCH 27 L Lymph % (Auto) 13.0 L [place] % (Auto) 8.0 H [place] # Eos # Lymph # (Auto) [place] # (Auto) 1.0 H Eos # (Auto) Seg Neutrophils % 76.3 H Seg Neuts % (Manual) Baso # (Auto) Lymphocytes % (Manual) Monocytes % (Manual) Eosinophils % (Manual) Basophils % (Manual) Seg Neutrophils # 9.9 H Seg Neutrophils # Man Lymphocytes # (Manual) Monocytes # (Manual) Eosinophils # (Manual) Nucleated RBC % Basophils # (Manual) APTT Heparin Anti-Xa Level ABG pH POC ABG pO2 ABG pO2 ABG HCO3 ABG O2 Saturation ABG Base Excess POC ABG pCO2 ABG Hemoglobin ABG Oxyhemoglobin Oxyhemoglobin Sodium Potassium Chloride Carbon Dioxide BUN 22 H Creatinine 0.6 L Glucose 101 H POC Glucose 130 H Lactic Acid Calcium Phosphorus Magnesium AST ALT Lactate Dehydrogenase CK-MB (CK-2) C-Reactive Protein NT-Pro-B Natriuret Pep Total Protein Albumin Urine WBC (Auto) 12/28/19 12/28/19 12/28/19 06:00 12:34 18:13 WBC RBC Hgb Hct MCHC RDW MCH Lymph % (Auto) [place] % (Auto) [place] # Eos # Lymph # (Auto) [place] # (Auto) Eos # (Auto) Seg Neutrophils % Seg Neuts % (Manual) Baso # (Auto) Lymphocytes % (Manual) Monocytes % (Manual) Eosinophils % (Manual) Basophils % (Manual) Seg Neutrophils # Seg Neutrophils # Man Lymphocytes # (Manual) Monocytes # (Manual) Eosinophils # (Manual) Nucleated RBC % Basophils # (Manual) APTT Heparin Anti-Xa Level ABG pH POC ABG pO2 ABG pO2 ABG HCO3 ABG O2 Saturation ABG Base Excess POC ABG pCO2 ABG Hemoglobin ABG Oxyhemoglobin Oxyhemoglobin Sodium Potassium Chloride Carbon Dioxide BUN Creatinine Glucose POC Glucose 150 H 161 H 128 H Lactic Acid Calcium Phosphorus Magnesium AST ALT Lactate Dehydrogenase CK-MB (CK-2) C-Reactive Protein NT-Pro-B Natriuret Pep Total Protein Albumin Urine WBC (Auto) 12/28/19 12/29/19 12/29/19 23:36 05:21 11:40 WBC RBC Hgb Hct MCHC RDW MCH Lymph % (Auto) [place] % (Auto) [place] # Eos # Lymph # (Auto) [place] # (Auto) Eos # (Auto) Seg Neutrophils % Seg Neuts % (Manual) Baso # (Auto) Lymphocytes % (Manual) Monocytes % (Manual) Eosinophils % (Manual) Basophils % (Manual) Seg Neutrophils # Seg Neutrophils # Man Lymphocytes # (Manual) Monocytes # (Manual) Eosinophils # (Manual) Nucleated RBC % Basophils # (Manual) APTT Heparin Anti-Xa Level ABG pH POC ABG pO2 ABG pO2 ABG HCO3 ABG O2 Saturation ABG Base Excess POC ABG pCO2 ABG Hemoglobin ABG Oxyhemoglobin Oxyhemoglobin Sodium Potassium Chloride Carbon Dioxide BUN Creatinine Glucose POC Glucose 137 H 136 H 166 H Lactic Acid Calcium Phosphorus Magnesium AST ALT Lactate Dehydrogenase CK-MB (CK-2) C-Reactive Protein NT-Pro-B Natriuret Pep Total Protein Albumin Urine WBC (Auto) 12/29/19 12/29/19 12/29/19 17:23 19:21 23:38 WBC RBC Hgb Hct MCHC RDW MCH Lymph % (Auto) [place] % (Auto) [place] # Eos # Lymph # (Auto) [place] # (Auto) Eos # (Auto) Seg Neutrophils % Seg Neuts % (Manual) Baso # (Auto) Lymphocytes % (Manual) Monocytes % (Manual) Eosinophils % (Manual) Basophils % (Manual) Seg Neutrophils # Seg Neutrophils # Man Lymphocytes # (Manual) Monocytes # (Manual) Eosinophils # (Manual) Nucleated RBC % Basophils # (Manual) APTT Heparin Anti-Xa Level 0.20 L ABG pH POC ABG pO2 ABG pO2 ABG HCO3 ABG O2 Saturation ABG Base Excess POC ABG pCO2 ABG Hemoglobin ABG Oxyhemoglobin Oxyhemoglobin Sodium Potassium Chloride Carbon Dioxide BUN Creatinine Glucose POC Glucose 144 H 141 H Lactic Acid Calcium Phosphorus Magnesium AST ALT Lactate Dehydrogenase CK-MB (CK-2) C-Reactive Protein NT-Pro-B Natriuret Pep Total Protein Albumin Urine WBC (Auto) 12/30/19 12/30/19 12/30/19 03:58 03:58 04:59 WBC RBC 3.54 L Hgb 9.8 L Hct 30.7 L MCHC RDW 16.8 H MCH Lymph % (Auto) [place] % (Auto) [place] # Eos # Lymph # (Auto) [place] # (Auto) Eos # (Auto) Seg Neutrophils % Seg Neuts % (Manual) Baso # (Auto) Lymphocytes % (Manual) Monocytes % (Manual) Eosinophils % (Manual) Basophils % (Manual) Seg Neutrophils # Seg Neutrophils # Man Lymphocytes # (Manual) Monocytes # (Manual) Eosinophils # (Manual) Nucleated RBC % Basophils # (Manual) APTT Heparin Anti-Xa Level ABG pH POC ABG pO2 ABG pO2 ABG HCO3 29.8 H ABG O2 Saturation ABG Base Excess 4.8 H POC ABG pCO2 ABG Hemoglobin 11.2 L ABG Oxyhemoglobin Oxyhemoglobin 93.8 L Sodium Potassium Chloride 97.8 L Carbon Dioxide BUN 26 H Creatinine Glucose 168 H POC Glucose Lactic Acid Calcium Phosphorus Magnesium AST ALT Lactate Dehydrogenase CK-MB (CK-2) C-Reactive Protein NT-Pro-B Natriuret Pep Total Protein Albumin Urine WBC (Auto) 12/30/19 12/30/19 12/30/19 05:45 11:34 17:28 WBC RBC Hgb Hct MCHC RDW MCH Lymph % (Auto) [place] % (Auto) [place] # Eos # Lymph # (Auto) [place] # (Auto) Eos # (Auto) Seg Neutrophils % Seg Neuts % (Manual) Baso # (Auto) Lymphocytes % (Manual) Monocytes % (Manual) Eosinophils % (Manual) Basophils % (Manual) Seg Neutrophils # Seg Neutrophils # Man Lymphocytes # (Manual) Monocytes # (Manual) Eosinophils # (Manual) Nucleated RBC % Basophils # (Manual) APTT Heparin Anti-Xa Level ABG pH POC ABG pO2 ABG pO2 ABG HCO3 ABG O2 Saturation ABG Base Excess POC ABG pCO2 ABG Hemoglobin ABG Oxyhemoglobin Oxyhemoglobin Sodium Potassium Chloride Carbon Dioxide BUN Creatinine Glucose POC Glucose 163 H 180 H 150 H Lactic Acid Calcium Phosphorus Magnesium AST ALT Lactate Dehydrogenase CK-MB (CK-2) C-Reactive Protein NT-Pro-B Natriuret Pep Total Protein Albumin Urine WBC (Auto) 12/30/19 12/31/19 12/31/19 23:43 04:55 05:07 WBC RBC Hgb Hct MCHC RDW MCH Lymph % (Auto) [place] % (Auto) [place] # Eos # Lymph # (Auto) [place] # (Auto) Eos # (Auto) Seg Neutrophils % Seg Neuts % (Manual) Baso # (Auto) Lymphocytes % (Manual) Monocytes % (Manual) Eosinophils % (Manual) Basophils % (Manual) Seg Neutrophils # Seg Neutrophils # Man Lymphocytes # (Manual) Monocytes # (Manual) Eosinophils # (Manual) Nucleated RBC % Basophils # (Manual) APTT Heparin Anti-Xa Level ABG pH POC ABG pO2 ABG pO2 ABG HCO3 ABG O2 Saturation ABG Base Excess POC ABG pCO2 ABG Hemoglobin ABG Oxyhemoglobin Oxyhemoglobin Sodium Potassium 5.6 H D Chloride Carbon Dioxide BUN 33 H Creatinine Glucose 131 H POC Glucose 142 H 134 H Lactic Acid Calcium Phosphorus Magnesium AST ALT Lactate Dehydrogenase CK-MB (CK-2) C-Reactive Protein NT-Pro-B Natriuret Pep Total Protein Albumin Urine WBC (Auto) 12/31/19 12/31/19 12/31/19 11:30 17:19 17:36 WBC RBC Hgb Hct MCHC RDW MCH Lymph % (Auto) [place] % (Auto) [place] # Eos # Lymph # (Auto) [place] # (Auto) Eos # (Auto) Seg Neutrophils % Seg Neuts % (Manual) Baso # (Auto) Lymphocytes % (Manual) Monocytes % (Manual) Eosinophils % (Manual) Basophils % (Manual) Seg Neutrophils # Seg Neutrophils # Man Lymphocytes # (Manual) Monocytes # (Manual) Eosinophils # (Manual) Nucleated RBC % Basophils # (Manual) APTT Heparin Anti-Xa Level ABG pH POC ABG pO2 ABG pO2 ABG HCO3 ABG O2 Saturation ABG Base Excess POC ABG pCO2 ABG Hemoglobin ABG Oxyhemoglobin Oxyhemoglobin Sodium Potassium Chloride Carbon Dioxide BUN 35 H Creatinine Glucose 156 H POC Glucose 158 H 181 H Lactic Acid Calcium Phosphorus Magnesium AST ALT Lactate Dehydrogenase CK-MB (CK-2) C-Reactive Protein NT-Pro-B Natriuret Pep Total Protein Albumin Urine WBC (Auto) 12/31/19 12/31/19 12/31/19 18:16 19:41 21:53 WBC RBC Hgb Hct MCHC RDW MCH Lymph % (Auto) [place] % (Auto) [place] # Eos # Lymph # (Auto) [place] # (Auto) Eos # (Auto) Seg Neutrophils % Seg Neuts % (Manual) Baso # (Auto) Lymphocytes % (Manual) Monocytes % (Manual) Eosinophils % (Manual) Basophils % (Manual) Seg Neutrophils # Seg Neutrophils # Man Lymphocytes # (Manual) Monocytes # (Manual) Eosinophils # (Manual) Nucleated RBC % Basophils # (Manual) APTT Heparin Anti-Xa Level 0.20 L ABG pH POC ABG pO2 ABG pO2 ABG HCO3 ABG O2 Saturation ABG Base Excess POC ABG pCO2 ABG Hemoglobin ABG Oxyhemoglobin Oxyhemoglobin Sodium Potassium Chloride Carbon Dioxide BUN 34 H Creatinine Glucose 169 H POC Glucose 141 H Lactic Acid Calcium Phosphorus Magnesium AST ALT Lactate Dehydrogenase CK-MB (CK-2) C-Reactive Protein NT-Pro-B Natriuret Pep Total Protein Albumin Urine WBC (Auto) 12/31/19 01/01/20 01/01/20 23:51 05:17 10:40 WBC RBC Hgb Hct MCHC RDW MCH Lymph % (Auto) [place] % (Auto) [place] # Eos # Lymph # (Auto) [place] # (Auto) Eos # (Auto) Seg Neutrophils % Seg Neuts % (Manual) Baso # (Auto) Lymphocytes % (Manual) Monocytes % (Manual) Eosinophils % (Manual) Basophils % (Manual) Seg Neutrophils # Seg Neutrophils # Man Lymphocytes # (Manual) Monocytes # (Manual) Eosinophils # (Manual) Nucleated RBC % Basophils # (Manual) APTT Heparin Anti-Xa Level ABG pH POC ABG pO2 ABG pO2 ABG HCO3 ABG O2 Saturation ABG Base Excess POC ABG pCO2 ABG Hemoglobin ABG Oxyhemoglobin Oxyhemoglobin Sodium Potassium Chloride Carbon Dioxide BUN 31 H Creatinine 0.7 L Glucose 137 H POC Glucose 131 H 155 H Lactic Acid Calcium Phosphorus Magnesium AST 73 H ALT 97 H Lactate Dehydrogenase CK-MB (CK-2) C-Reactive Protein NT-Pro-B Natriuret Pep 3866 H Total Protein Albumin 2.8 L Urine WBC (Auto) 01/01/20 01/01/20 01/01/20 12:26 15:33 17:53 WBC 14.3 H RBC 3.35 L Hgb 9.1 L Hct 28.8 L MCHC RDW 17.0 H MCH 27 L Lymph % (Auto) 7.0 L [place] % (Auto) 7.6 H [place] # Eos # Lymph # (Auto) 1.0 L [place] # (Auto) 1.1 H Eos # (Auto) Seg Neutrophils % 83.3 H Seg Neuts % (Manual) Baso # (Auto) Lymphocytes % (Manual) Monocytes % (Manual) Eosinophils % (Manual) Basophils % (Manual) Seg Neutrophils # 12.0 H Seg Neutrophils # Man Lymphocytes # (Manual) Monocytes # (Manual) Eosinophils # (Manual) Nucleated RBC % Basophils # (Manual) APTT Heparin Anti-Xa Level ABG pH POC ABG pO2 ABG pO2 ABG HCO3 ABG O2 Saturation ABG Base Excess POC ABG pCO2 ABG Hemoglobin ABG Oxyhemoglobin Oxyhemoglobin Sodium Potassium Chloride Carbon Dioxide BUN Creatinine Glucose POC Glucose 128 H 128 H Lactic Acid Calcium Phosphorus Magnesium AST ALT Lactate Dehydrogenase CK-MB (CK-2) C-Reactive Protein NT-Pro-B Natriuret Pep Total Protein Albumin Urine WBC (Auto) 01/01/20 01/02/20 01/02/20 23:04 05:39 07:00 WBC RBC Hgb Hct MCHC RDW MCH Lymph % (Auto) [place] % (Auto) [place] # Eos # Lymph # (Auto) [place] # (Auto) Eos # (Auto) Seg Neutrophils % Seg Neuts % (Manual) Baso # (Auto) Lymphocytes % (Manual) Monocytes % (Manual) Eosinophils % (Manual) Basophils % (Manual) Seg Neutrophils # Seg Neutrophils # Man Lymphocytes # (Manual) Monocytes # (Manual) Eosinophils # (Manual) Nucleated RBC % Basophils # (Manual) APTT Heparin Anti-Xa Level 0.13 L ABG pH POC ABG pO2 ABG pO2 ABG HCO3 ABG O2 Saturation ABG Base Excess POC ABG pCO2 ABG Hemoglobin ABG Oxyhemoglobin Oxyhemoglobin Sodium Potassium Chloride Carbon Dioxide BUN Creatinine Glucose POC Glucose 120 H 169 H Lactic Acid Calcium Phosphorus Magnesium AST ALT Lactate Dehydrogenase CK-MB (CK-2) C-Reactive Protein NT-Pro-B Natriuret Pep Total Protein Albumin Urine WBC (Auto) 01/02/20 01/02/20 01/02/20 12:15 14:06 17:58 WBC RBC Hgb Hct MCHC RDW MCH Lymph % (Auto) [place] % (Auto) [place] # Eos # Lymph # (Auto) [place] # (Auto) Eos # (Auto) Seg Neutrophils % Seg Neuts % (Manual) Baso # (Auto) Lymphocytes % (Manual) Monocytes % (Manual) Eosinophils % (Manual) Basophils % (Manual) Seg Neutrophils # Seg Neutrophils # Man Lymphocytes # (Manual) Monocytes # (Manual) Eosinophils # (Manual) Nucleated RBC % Basophils # (Manual) APTT Heparin Anti-Xa Level < 0.10 L ABG pH POC ABG pO2 ABG pO2 ABG HCO3 ABG O2 Saturation ABG Base Excess POC ABG pCO2 ABG Hemoglobin ABG Oxyhemoglobin Oxyhemoglobin Sodium Potassium Chloride Carbon Dioxide BUN Creatinine Glucose POC Glucose 190 H 198 H Lactic Acid Calcium Phosphorus Magnesium AST ALT Lactate Dehydrogenase CK-MB (CK-2) C-Reactive Protein NT-Pro-B Natriuret Pep Total Protein Albumin Urine WBC (Auto) 01/02/20 01/02/20 01/03/20 21:43 23:33 05:42 WBC RBC Hgb Hct MCHC RDW MCH Lymph % (Auto) [place] % (Auto) [place] # Eos # Lymph # (Auto) [place] # (Auto) Eos # (Auto) Seg Neutrophils % Seg Neuts % (Manual) Baso # (Auto) Lymphocytes % (Manual) Monocytes % (Manual) Eosinophils % (Manual) Basophils % (Manual) Seg Neutrophils # Seg Neutrophils # Man Lymphocytes # (Manual) Monocytes # (Manual) Eosinophils # (Manual) Nucleated RBC % Basophils # (Manual) APTT Heparin Anti-Xa Level 0.10 L ABG pH POC ABG pO2 ABG pO2 ABG HCO3 ABG O2 Saturation ABG Base Excess POC ABG pCO2 ABG Hemoglobin ABG Oxyhemoglobin Oxyhemoglobin Sodium Potassium Chloride Carbon Dioxide BUN Creatinine Glucose POC Glucose 180 H 163 H Lactic Acid Calcium Phosphorus Magnesium AST ALT Lactate Dehydrogenase CK-MB (CK-2) C-Reactive Protein NT-Pro-B Natriuret Pep Total Protein Albumin Urine WBC (Auto) 01/03/20 01/03/20 01/03/20 06:50 07:25 07:45 WBC 12.1 H RBC 3.35 L Hgb 9.0 L Hct 28.9 L MCHC 31 L RDW 16.6 H MCH 27 L Lymph % (Auto) 13.0 L [place] % (Auto) 8.6 H [place] # Eos # Lymph # (Auto) [place] # (Auto) 1.0 H Eos # (Auto) Seg Neutrophils % 75.9 H Seg Neuts % (Manual) Baso # (Auto) Lymphocytes % (Manual) Monocytes % (Manual) Eosinophils % (Manual) Basophils % (Manual) Seg Neutrophils # 9.2 H Seg Neutrophils # Man Lymphocytes # (Manual) Monocytes # (Manual) Eosinophils # (Manual) Nucleated RBC % Basophils # (Manual) APTT Heparin Anti-Xa Level 0.29 L ABG pH POC ABG pO2 ABG pO2 ABG HCO3 ABG O2 Saturation ABG Base Excess POC ABG pCO2 ABG Hemoglobin ABG Oxyhemoglobin Oxyhemoglobin Sodium Potassium 3.3 L D Chloride Carbon Dioxide 35 H D BUN 23 H Creatinine 0.6 L Glucose 149 H POC Glucose Lactic Acid Calcium Phosphorus Magnesium AST ALT 88 H Lactate Dehydrogenase CK-MB (CK-2) C-Reactive Protein NT-Pro-B Natriuret Pep Total Protein 6.2 L Albumin 2.9 L Urine WBC (Auto) 01/03/20 12:05 WBC RBC Hgb Hct MCHC RDW MCH Lymph % (Auto) [place] % (Auto) [place] # Eos # Lymph # (Auto) [place] # (Auto) Eos # (Auto) Seg Neutrophils % Seg Neuts % (Manual) Baso # (Auto) Lymphocytes % (Manual) Monocytes % (Manual) Eosinophils % (Manual) Basophils % (Manual) Seg Neutrophils # Seg Neutrophils # Man Lymphocytes # (Manual) Monocytes # (Manual) Eosinophils # (Manual) Nucleated RBC % Basophils # (Manual) APTT Heparin Anti-Xa Level ABG pH POC ABG pO2 ABG pO2 ABG HCO3 ABG O2 Saturation ABG Base Excess POC ABG pCO2 ABG Hemoglobin ABG Oxyhemoglobin Oxyhemoglobin Sodium Potassium Chloride Carbon Dioxide BUN Creatinine Glucose POC Glucose 128 H Lactic Acid Calcium Phosphorus Magnesium AST ALT Lactate Dehydrogenase CK-MB (CK-2) C-Reactive Protein NT-Pro-B Natriuret Pep Total Protein Albumin Urine WBC (Auto) Allied health notes reviewed: RT
[2020-01-03] MEDS ORDERED: DIGOXIN 0.5 MG/2 ML INJ IV ONE (13:38)
[2020-01-03] MEDS ORDERED: BUMETANIDE 1 MG/4 ML INJ IV ONE (14:00)
--- NOTE | 2020-01-03 14:12 | Progress Note ---
Assessment and Plan Assessment and plan: -Acute LLL PE -Acute RLE DVT -Persistent fevers; secondary to sepsis and acute PE/DVT -Severe sepsis; secondary to bilateral pneumonia, persistent fevers -Acute hypoxemic respiratory failure, on vent unable to wean -Bilateral pneumonia, community acquired, -Aspiration Pneumonia -Sustained SVT, on amiodarone -Acute on chronic systolic congestive heart failure -History of cerebrovascular accident. -Tobacco use disorder -Alcohol abuse with DT -Acute chronic obstructive pulmonary disease exacerbation. -Hypertension and hypertensive urgency at presentation. -History of arthritis. -Paroxysmal atrial fibrillation -Leukocytosis with possible sepsis. -Lactic acidosis. -Bleeding from ET tube -Oropharyngeal dysphagia -S/P Knee surgery -History of peptic Ulcer Surgery -DVT prophylaxis COVID-19 test; 11/24/2019; negative 11/26/2019; negative Plan Continue ventilatory support - Now s/p trach and PEG Aspiration precautions Continue to adjust amiodarone and metoprolol for suppression of paroxysmal atrial fibrillation. Continue anticoagulation Started on vancomycin and zosyn BC 03/28 - coag negative staph ?contaminant. Sputum cultures pending. Low-dose Lasix as needed DVT/GI prophy Heparin/Protonix Plan of care reviewed with the patient's nurse Closely monitor the patient and adjust management as needed The high probability of a clinically significant, sudden or life threatening deterioration of the [Respiratory, cardiovascular & neurological] system(s) required my full and direct attention, intervention and personal management. The aggregate critical care time was [33] minutes without overlap. Time includes spent on [x] Data Review and interpretation [x] Patient assessment and monitoring of vital signs [x] Documentation [x] Medication orders and management Brief History Patient is a 64-year-old male with known history of hypertension, COPD, history of coronary artery disease, CHF with ejection fraction of 20 to 25% in August 2018 presenting to the emergency room via EMS complaining of shortness of breath. Patient was found to be hypoxic and in respiratory distress. Patient was placed on CPAP in route to the hospital. Oxygen saturation was said to be 88%. Started on Solu-Medrol, Lasix and magnesium in ED, patient was also found to be lethargic with an oxygen saturation of about 91% on CPAP. He was subsequently intubated. Work-up in the emergency room including chest x-ray reveals bilateral pneumonia. He had an elevated white count of 14 and also had an elevated BNP. Patient adm itted to the ICU and placed on empiric IV antibiotics for pneumonia. He tested negative for COVID-19 and placed on isolation precautions. Remains intubated on ventilatory support, sputum cultures positive for Pseudomonas, ID treated with cefepime and Vanco. His hospital course became complicated with acute PE, DVT, paroxysmal atrial fib - placed on heparin drip. Patient difficult to wean off, remains intubated. 11/25: Leukocytosis improving. Continue current management anticipate extubation possible today. 11/26. Still intubated. Failed SBT yesterday. Repeat COVID-19 test is negative. 11/27. CT head ordered for possible neuro status change is negative. More responsive as the day progressed as per RN. Chest xray today shows interval improvement. He is still on antibiotics - will complete regimen today. 11/28: Considering difficult extubation and severe cardiomyopathy, will obtain cardiology consult. Aspiration precautions, tube feeds held, continue antibiotics. 11/29: Still with intermittent fever but improving imaging, continue diuresis. 11/30; Extremely agitated when placed on PSV- SVT, hypertension. Patiet acknowledged that he drinks. IV Ativan given, CIWA protocol initiated. 12 lead ordered showed SVT, one dose of amiodarone ordered. continue to follow up cardiology recommendation 12/01: Patient remains on mechanical ventilation, getting SBT trial. Remains in SVT, started on amiodarone drip by cardiology. 12/02; patient is on mechanical ventilation and on spontaneous breathing trial. Cardiology started the patient on PO amiodarone. Patient is on cefepime. 12/03: patient is on mechanical ventilation. Cardiology started the patient on PO amiodarone for SVT. Patient is on cefepime, no fever overnight. 12/04: Patient is sedated and on mechanical ventilation. Patient had fever yesterday afternoon 102.3, ID changed his cefepime to meropenem. Heart rate is controlled, cardiology is following. Patient has paroxysmal atrial fibrillation and on amiodarone and metoprolol, subcu heparin for anticoagulation and will need oral anticoagulation once stable. 12/05: Sputum cultures positive for Pseudomonas, ID following 12/06; patient is febrile T-max 24 hours 102 F ,ID change antibiotics to cefepime and Vancomycin 12/07: resumed care. Na 149 today, start on 03/26 NS. cont current care 12/08: remains in a stable sinus rhythm and stable blood pressure, continue supportive care. wean off vent as tolerated. persistent fever - ordered CTA chest 12/09: noted bloody discharges from ET tube last night. CTA and LE venous doppler positive for acute PE and DVT. resume heparin drip, consult vascular for possible EKOS/ IVC filter. monitor h/h. cont SBT trial, wean off vent as tolerated. called but no answer 12/10: cont heparin drip for acute PE and DVT, follow vascular recommendation. monitor h/h, wean off vent as tolerated 12/11: o/n had bleeding from ET tube, cont to monitor h/h. vascular recommending medical Mx. called ; Nicolle Araiza [phone]. 12/12: H&H remained stable, patient on heparin drip. Discussed with yesterday. Discussed with critical care attending. Patient not tolerating SBT trial. Continue to wean off from vent as tolerated, follow clinically. Tolerating tube feeding 12/13: Continue heparin drip, wean off from vent as tolerated. Discussed with pulmonary attending if no improvement by the end of 3 weeks of intubation patient may need trach and PEG. Continue to provide supportive care, follow CBC and BMP. 12/14: Stop cefepime today, wean off from vent as tolerated. cont Heparin infusion, while monitoring for bleeding 12/15: Patient is not tolerating SBT trial, becoming apnic on CPAP. May need to place on trach and PEG. Continue heparin drip, monitor off antibiotics 12/16. Still maintained on vent. May need PEG and trach as her has been failed SBTs 12/17. Had low UO overnight. Started on tamsulosin. May need PEG and trach - defer to pulm. 12/18-. Plan for US thoracentesis to help with weaning. Remains on heparin drip for VTE. 12/20. Discussed with spouse today. He will get thoracentesis today. INR/PTT ordered. Heparin drip held. 12/21: planned for trach and PEG, cont supportive care, thoracentesis cancelled 12/22: cont supportive care, wean off from vent, daily SBT 12/23: tolerating SBT, possible extubation soon. cont supportive care 12/24: wean off vent as tolerated, daily SBT, follow clinically 12/25; cont to monitor, wean off vent as tolerated 12/26: Continue to monitor wean off vent as tolerated patient is tolerating SBT trial but not ready to wean off. 12/27: need trach and PEG, will f/u with GS, cont supportive care 12/28: pending trach/PEG 12/29: plan for trach and PEG on Saturday 12/30: Plan for trach and PEG. Temp 101F. Blood cultures, urinalysis and chest xray ordered. 12/31. Had afib with RVR overnight. Metoprolol dose has been increased. He is still on amiodarone. Plan for PEG tube placement today. Repeat chest x-ray shows worsening infiltrates. Started on the Lasix. Monitor fever now. Blood cultures negative so far. Urinalysis pending 01/01. Started on antibiotics as he had another fever. On vancomycin and zosyn. ID consulted. HR still in the 100s. Had trach and PEG placement on 12/31 with no complications. BC 03/28 - Coag negative staph? contaminant. 01/02. On antibiotics. ID consulted. HR still high. Cardiology adjusting HR control medications. History Interval history: No change in medical condition. Still remains intubated. COVID-19 test negative. He is tachycardic. Hospitalist Physical - Constitutional Vitals: Temp Pulse Resp BP Pulse Ox 99.2 F 141 H 16 103/70 96 01/03/20 12:00 01/03/20 14:03 01/03/20 12:00 01/03/20 14:03 01/03/20 12:30 General appearance: Present: well-nourished, other - Neck Neck: Present: supple, other - Respiratory Respiratory: bilateral: rales - Cardiovascular Heart Sounds: Present: S1 & S2 - Extremities Extremity abnormal: edema - Abdominal General gastrointestinal: soft, non-tender, non-distended, normal bowel sounds - Neurologic Neurologic: other (Sedated) HEART Score - HEART Score Troponin: Troponin T < 0.010 ng/mL (0.00-0.029) 11/24/19 02:53 Results - Labs CBC & Chem 7: 01/03/20 07:45 01/03/20 07:25 Labs: Laboratory Last Values WBC 12.1 K/mm3 (4.5-11.0) H 01/03/20 07:45 RBC 3.35 M/mm3 (3.65-5.03) L 01/03/20 07:45 Hgb 9.0 gm/dl (11.8-15.2) L 01/03/20 07:45 Hct 28.9 % (35.5-45.6) L 01/03/20 07:45 MCV 86 fl (84-94) 01/03/20 07:45 MCH 27 pg (28-32) L 01/03/20 07:45 MCHC 31 % (32-34) L 01/03/20 07:45 RDW 16.6 % (13.2-15.2) H 01/03/20 07:45 Plt Count 236 K/mm3 (140-440) 01/03/20 07:45 Lymph % (Auto) 13.0 % (13.4-35.0) L 01/03/20 07:45 Jerauld % (Auto) 8.6 % (0.0-7.3) H 01/03/20 07:45 Eos % (Auto) 1.7 % (0.0-4.3) 01/03/20 07:45 Baso % (Auto) 0.8 % (0.0-1.8) 01/03/20 07:45 Lymph # (Auto) 1.6 K/mm3 (1.2-5.4) 01/03/20 07:45 Jerauld # (Auto) 1.0 K/mm3 (0.0-0.8) H 01/03/20 07:45 Eos # (Auto) 0.2 K/mm3 (0.0-0.4) 01/03/20 07:45 Baso # (Auto) 0.1 K/mm3 (0.0-0.1) 01/03/20 07:45 Add Manual Diff Complete 12/19/19 11:32 Total Counted 100 12/19/19 11:32 Seg Neutrophils % 75.9 % (40.0-70.0) H 01/03/20 07:45 Seg Neuts % (Manual) 82.0 % (40.0-70.0) H 12/19/19 11:32 Band Neutrophils % 0 % 12/19/19 11:32 Lymphocytes % (Manual) 10.0 % (13.4-35.0) L 12/19/19 11:32 Reactive Lymphs % (Man) 0 % 12/19/19 11:32 Monocytes % (Manual) 6.0 % (0.0-7.3) 12/19/19 11:32 Eosinophils % (Manual) 2.0 % (0.0-4.3) 12/19/19 11:32 Basophils % (Manual) 0 % (0.0-1.8) 12/19/19 11:32 Metamyelocytes % 0 % 12/19/19 11:32 Myelocytes % 0 % 12/19/19 11:32 Promyelocytes % 0 % 12/19/19 11:32 Blast Cells % 0 % 12/19/19 11:32 Nucleated RBC % 1.0 % (0.0-0.9) H 12/19/19 11:32 Seg Neutrophils # 9.2 K/mm3 (1.8-7.7) H 01/03/20 07:45 Seg Neutrophils # Man 12.0 K/mm3 (1.8-7.7) H 12/19/19 11:32 Band Neutrophils # 0.0 K/mm3 12/19/19 11:32 Lymphocytes # (Manual) 1.5 K/mm3 (1.2-5.4) 12/19/19 11:32 Abs React Lymphs (Man) 0.0 K/mm3 12/19/19 11:32 Monocytes # (Manual) 0.9 K/mm3 (0.0-0.8) H 12/19/19 11:32 Eosinophils # (Manual) 0.3 K/mm3 (0.0-0.4) 12/19/19 11:32 Basophils # (Manual) 0.0 K/mm3 (0.0-0.1) 12/19/19 11:32 Metamyelocytes # 0.0 K/mm3 12/19/19 11:32 Myelocytes # 0.0 K/mm3 12/19/19 11:32 Promyelocytes # 0.0 K/mm3 12/19/19 11:32 Blast Cells # 0.0 K/mm3 12/19/19 11:32 WBC Morphology Not Reportable 12/19/19 11:32 Hypersegmented Neuts Not Reportable 12/19/19 11:32 Hyposegmented Neuts Not Reportable 12/19/19 11:32 Hypogranular Neuts Not Reportable 12/19/19 11:32 Smudge Cells Not Reportable 12/19/19 11:32 Toxic Granulation Not Reportable 12/19/19 11:32 Toxic Vacuolation Not Reportable 12/19/19 11:32 Dohle Bodies Not Reportable 12/19/19 11:32 Pelger-Huet Anomaly Not Reportable 12/19/19 11:32 Hector Rods Not Reportable 12/19/19 11:32 Platelet Estimate Consistent w auto 12/19/19 11:32 Clumped Platelets Not Reportable 12/19/19 11:32 Plt Clumps, EDTA Not Reportable 12/19/19 11:32 Large Platelets Not Reportable 12/19/19 11:32 Giant Platelets Not Reportable 12/19/19 11:32 Platelet Satelliting Not Reportable 12/19/19 11:32 Plt Morphology Comment Not Reportable 12/19/19 11:32 RBC Morphology Not Reportable 12/19/19 11:32 Dimorphic RBCs Not Reportable 12/19/19 11:32 Polychromasia Not Reportable 12/19/19 11:32 Hypochromasia Few 12/19/19 11:32 Poikilocytosis Not Reportable 12/19/19 11:32 Anisocytosis 1+ 12/19/19 11:32 Microcytosis Few 12/19/19 11:32 Macrocytosis Few 12/19/19 11:32 Spherocytes Not Reportable 12/19/19 11:32 Pappenheimer Bodies Not Reportable 12/19/19 11:32 Sickle Cells Not Reportable 12/19/19 11:32 Target Cells Not Reportable 12/19/19 11:32 Tear Drop Cells Not Reportable 12/19/19 11:32 Ovalocytes Not Reportable 12/19/19 11:32 Helmet Cells Not Reportable 12/19/19 11:32 Gottlieb-Marne Bodies Not Reportable 12/19/19 11:32 Anton Rings Not Reportable 12/19/19 11:32 [place] Cells Not Reportable 12/19/19 11:32 Bite Cells Not Reportable 12/19/19 11:32 Crenated Cell Not Reportable 12/19/19 11:32 Elliptocytes Not Reportable 12/19/19 11:32 Acanthocytes (Spur) Not Reportable 12/19/19 11:32 Rouleaux Not Reportable 12/19/19 11:32 Hemoglobin C Crystals Not Reportable 12/19/19 11:32 Schistocytes Not Reportable 12/19/19 11:32 Malaria parasites Not Reportable 12/19/19 11:32 Clifford Bodies Not Reportable 12/19/19 11:32 Hem Pathologist Commnt No 12/19/19 11:32 PT 13.8 Sec. (12.2-14.9) 12/21/19 10:13 INR 1.05 (0.87-1.13) 12/21/19 10:13 APTT 23.9 Sec. (24.2-36.6) L 12/21/19 10:13 Heparin Anti-Xa Level 0.29 U.I./ml (0.3-0.7) L 01/03/20 06:50 ABG pH 7.439 pH Units (7.350-7.450) 12/30/19 04:59 POC ABG pCO2 52.9 mmHg (32.0-48.0) H 12/22/19 03:22 ABG pCO2 45.0 mm Hg 12/30/19 04:59 POC ABG pO2 52.3 mmHg (83-108) L 12/22/19 03:22 ABG pO2 89.3 mm Hg (80.0-90.0) 12/30/19 04:59 POC ABG HCO3 33.4 12/22/19 03:22 ABG HCO3 29.8 mmol/L (20.0-26.0) H 12/30/19 04:59 ABG O2 Saturation 96.3 % (95.0-99.0) 12/30/19 04:59 ABG O2 Content 20.6 (0.0-44) 12/30/19 04:59 POC ABG Base Excess 7.7 12/22/19 03:22 ABG Base Excess 4.8 mmol/L (-2.0-3.0) H 12/30/19 04:59 ABG Hemoglobin 11.2 gm/dl (14.0-18.0) L 12/30/19 04:59 ABG Oxyhemoglobin 84 (94-98) L 12/22/19 03:22 ABG Carboxyhemoglobin 2.2 % (0.0-5.0) 12/30/19 04:59 ABG Methemoglobin 0.4 % (0.0-1.5) 12/30/19 04:59 Oxyhemoglobin 93.8 % (95.0-99.0) L 12/30/19 04:59 Carboxyhemoglobin 0.7 (0.5-1.5) 12/22/19 03:22 FiO2 40 % 12/30/19 04:59 Sodium 145 mmol/L (137-145) 01/03/20 07:25 Potassium 3.3 mmol/L (3.6-5.0) L D 01/03/20 07:25 Chloride 100.3 mmol/L (98-107) 01/03/20 07:25 Carbon Dioxide 35 mmol/L (22-30) H D 01/03/20 07:25 Anion Gap 13 mmol/L 01/03/20 07:25 BUN 23 mg/dL (9-20) H 01/03/20 07:25 Creatinine 0.6 mg/dL (0.8-1.3) L 01/03/20 07:25 Estimated GFR > 60 ml/min 01/03/20 07:25 BUN/Creatinine Ratio 38 % 01/03/20 07:25 Glucose 149 mg/dL (75-100) H 01/03/20 07:25 POC Glucose 128 (70-105) H 01/03/20 12:05 Lactic Acid 2.50 mmol/L (0.7-2.0) H* 11/24/19 10:37 Phosphorus 2.60 mg/dL (2.5-4.5) 12/06/19 05:24 Magnesium 2.60 mg/dL (1.7-2.3) H 12/07/19 12:41 Calcium 9.2 mg/dL (8.4-10.2) 01/03/20 07:25 Ferritin 84.4 ng/mL (30.0-300.0) 11/24/19 04:53 Direct Bilirubin < 0.2 mg/dL (0-0.2) 12/08/19 03:55 Indirect Bilirubin 0.2 mg/dL 12/08/19 03:55 Total Bilirubin 1.10 mg/dL (0.1-1.2) 01/03/20 07:25 Total Creatine Kinase 141 units/L (55-170) 11/24/19 02:53 CK-MB (CK-2) 4.3 ng/mL (0.0-4.0) H 11/24/19 02:53 AST 40 units/L (5-40) 01/03/20 07:25 ALT 88 units/L (7-56) H 01/03/20 07:25 CK-MB (CK-2) Rel Index 3.0 (0-4) 11/24/19 02:53 Alkaline Phosphatase 76 units/L (35-129) 01/03/20 07:25 Troponin T < 0.010 ng/mL (0.00-0.029) 11/24/19 02:53 C-Reactive Protein 8.50 mg/dL (0.00-1.30) H 12/01/19 12:16 Lactate Dehydrogenase 228 units/L (91-180) H 12/19/19 04:45 NT-Pro-B Natriuret Pep 3866 pg/mL (0-900) H 01/01/20 10:40 Total Protein 6.2 g/dL (6.3-8.2) L 01/03/20 07:25 Albumin 2.9 g/dL (3.9-5) L 01/03/20 07:25 Albumin/Globulin Ratio 0.9 % 01/03/20 07:25 Procalcitonin 0.76 ng/mL (<0.15) 01/01/20 10:40 Urine Color Cecy (Yellow) 12/31/19 18:04 Urine Turbidity Clear (Clear) 12/31/19 18:04 Urine pH 5.0 (5.0-7.0) 12/31/19 18:04 Ur Specific [place] 1.023 (1.003-1.030) 12/31/19 18:04 Urine Protein <15 mg/dl mg/dL (Negative) 12/31/19 18:04 Urine Glucose (UA) Neg mg/dL (Negative) 12/31/19 18:04 Urine Ketones Neg mg/dL (Negative) 12/31/19 18:04 Urine Blood Neg (Negative) 12/31/19 18:04 Urine Bacteria (Auto) 1+ /HPF (Negative) 12/03/19 06:03 Urine Nitrite Neg (Negative) 12/31/19 18:04 Urine Bilirubin Neg (Negative) 12/31/19 18:04 Urine Urobilinogen 4.0 mg/dL (<2.0) 12/31/19 18:04 Ur Leukocyte Esterase Neg (Negative) 12/31/19 18:04 Urine WBC (Auto) 2.0 /HPF (0.0-6.0) 12/31/19 18:04 Urine RBC (Auto) 3.0 /HPF (0.0-6.0) 12/31/19 18:04 U Epithel Cells (Auto) 2.0 /HPF (0-13.0) 12/31/19 18:04 Urine Mucus 1+ /HPF 12/31/19 18:04 Vancomycin Trough 14.2 ug/mL (5.0-20.0) 12/13/19 15:01 Coronavirus (PCR) Negative (Negative) 12/29/19 10:07 Microbiology: Microbiology 12/31/19 18:16 Peripheral/Venous Blood Culture - Preliminary NO GROWTH AFTER 48 HOURS - Diagnostic Impressions Diagnostic Impressions: Echocardiogram 11/29/19 07:37 Transthoracic Echocardiogram Indication: CHF BP: 116/72 HR: 33 Conclusions *The study is technically limited due to poor acoustic windows. *Global left ventricular systolic function is normal. *The estimated ejection fraction is 50-55%. *Mild concentric left ventricular hypertrophy is observed. *There is trace of mitral regurgitation. *There is mild tricuspid regurgitation. Findings Procedure Info: The study quality is poor. The study is technically limited due to poor acoustic windows. The study is technically limited due to patient body habitus. Left Ventricle: The left ventricular chamber size is normal. Mild concentric left ventricular hypertrophy is observed. Global left ventricular systolic function is normal. The estimated ejection fraction is 50-55%. Left Atrium: The left atrial chamber size is normal. Right Ventricle: The right ventricular cavity size is normal. Right Atrium: The right atrial cavity size is normal. Aortic Valve: The aortic valve leaflets are moderately thickened. There is trace of aortic regurgitation. There is no evidence of aortic stenosis. Mitral Valve: The mitral valve leaflets are mildly thickened. There is trace of mitral regurgitation. There is no evidence of mitral stenosis. Tricuspid Valve: There is mild tricuspid regurgitation. No pulmonary hypertension is noted. Pulmonic Valve: There is trace pulmonic regurgitation. Pericardium: There is no pericardial effusion. Aorta: There is no dilatation of the aortic root. Venous: The inferior vena cava appears normal in size. Contrast: Definity was used to optimize study. Intravenous contrast was used to enhance endocardial border definition. Measurements Chambers 2D Name Value Normal Range Ao root diameter (2D) 3.4 cm (2 - 3.7) Aortic Valve Name Value Normal Range AV Vmax 0.98 m/sec - AV VTI 16.76 cm - AV peak gradient 3.83 mmHg - AV mean gradient 2.57 mmHg - LVOT diameter 3.11 cm - LVOT Vmax 0.68 m/sec - LVOT VTI 11.52 cm - LVOT peak gradient 1.84 mmHg - LVOT mean gradient 1.27 mmHg - SV LVOT 87.31 ml - MALOU (continuity Vmax) 5.24 cm2 - MALOU (continuity VTI) 5.21 cm2 - Tricuspid Valve Name Value Normal Range IVC diameter 2.24 cm (1.2 - 2.3) Hoffman/IV: Voiding Method Condom Catheter IV Catheter Type [Right Hand] INT / Saline Lock IV Catheter Type [Right Upper INT / Saline Lock arm] IV Catheter Type [Left Upper Mid-line arm] IV Catheter Type [Left Forearm Peripheral IV ] IV Catheter Type [Left Hand] INT / Saline Lock IV Catheter Type [Left Wrist] INT / Saline Lock IV Catheter Type [Right INT / Saline Lock Antecubital] Active Medications - Current Medications Current Medications: Generic Name Dose Route Start Last Admin Trade Name Freq PRN Reason Stop Dose Admin Acetaminophen 650 mg 12/31/19 11:43 01/02/20 03:20 Tylenol FEEDTUBE 650 mg Q6H PRN Administration Pain, Mild (1-3) Amiodarone HCl 200 mg 12/04/19 14:00 01/03/20 09:20 Cordarone PO 200 mg BID CAR Administration Lipase/Protease/Amylase 1 each 12/08/19 12:07 Nadir Betancourt 10,500 Unit FEEDTUBE PRN PRN For Clogged Feeding Tube Docusate Sodium 100 mg 12/02/19 22:00 01/03/20 09:20 Colace FEEDTUBE 100 mg BID CAR Administration Famotidine 20 mg 11/25/19 10:00 01/03/20 09:20 Pepcid PO 20 mg BID CAR Administration Fentanyl 50 mcg 12/30/19 10:46 01/02/20 10:06 Sublimaze IV 50 mcg Q10MIN PRN Administration ANALGESIA Haloperidol Lactate 5 mg 12/25/19 10:00 01/02/20 17:13 Haldol IV 5 mg Q6H PRN Administration Unrespon. to mult. doses BZD's Heparin Sodium/Sodium Chloride 25,000 unit in 500 mls @ 30 mls/hr 12/10/19 19:00 01/03/20 07:40 Heparin/ 0.45% Nacl-25,000 Unit/500 Ml IV 1,900 units/hr TITR CAR 38 mls/hr Titration Protocol 1,500 UNITS/HR Fentanyl Citrate 2,000 mcg in 100 mls @ 5.67 mls/hr 12/30/19 11:00 01/03/20 12:31 Fentanyl Drip Premix IV 2 mcg/kg/hr TITR CAR 11.34 mls/hr Administration Protocol 1 MCG/KG/HR Vancomycin HCl 1,750 mg/ 535 mls @ 333.333 mls/hr 01/02/20 12:00 01/03/20 11:53 Sodium Chloride IV 333.333 mls/hr Q12H CAR Administration Piperacillin Sod/Tazobactam Sod 4.5 gm in 100 mls @ 200 mls/hr 01/02/20 08:00 01/03/20 13:48 Zosyn/Ns 4.5gm/100ml IV 200 mls/hr Q8HR CAR Administration Protocol Insulin Human Lispro 0 unit 12/05/19 19:00 01/03/20 12:39 Humalog SUB-Q Not Given Q6H [facility] Protocol Lorazepam 2 mg 12/25/19 10:00 01/03/20 10:23 Ativan IV 2 mg Q6H PRN Administration AGITATION Metoprolol Tartrate 50 mg 01/02/20 10:00 01/03/20 11:54 Metoprolol FEEDTUBE 50 mg Q6HR CAR Administration Polyethylene Glycol 17 gm 12/04/19 22:00 01/02/20 21:58 Miralax 3350 PO 17 gm QHS CAR Administration Quetiapine Fumarate 200 mg 12/24/19 13:00 01/03/20 09:20 Seroquel PO 200 mg BID CAR Administration Simple Syrup 15 ml 12/08/19 12:07 Simple Syrup FEEDTUBE PRN PRN Hypoglycemia Simple Syrup 30 ml 12/08/19 12:07 Simple Syrup FEEDTUBE PRN PRN Hypoglycemia Sodium Bicarbonate 325 mg 12/08/19 12:07 Sodium Bicarbonate FEEDTUBE PRN PRN For Clogged Feeding Tube Sodium Chloride 10 ml 11/24/19 10:00 01/03/20 09:21 Sodium Chloride Flush Syringe 10 Ml IV 10 ml BID CAR Administration Tamsulosin HCl 0.8 mg 12/20/19 22:00 01/02/20 21:59 Flomax PO 0.8 mg QHS CAR Administration Nutrition/Malnutrition Assess - Dietary Evaluation Nutrition/Malnutrition Findings: Nutrition Notes Start: 11/24/19 12:22 Freq: Status: Active Protocol: Document 12/30/19 11:51 ARISTIDES (Rec: 12/30/19 11:56 [email or web address] [id number]) Co-Sign 12/30/19 11:51 MK Nutrition Notes Initial or Follow up Reassessment Current Diagnosis Coronary Artery Disease,Heart Failure,Respiratory Failure, Stroke,Hyperlipidemia Current Diet TF Vital HP 65ml/hr Labs/Tests BUN 26 BG 128 Pertinent Medications Insulin Height 6 ft 2 in Weight 116.7 kg [place] Body Weight (kg) 86.36 BMI 33.0 Weight change and time frame Wt change noted Weight Status Obese Subjective/Other Information F/U for stable TF. Pt tolerating TF at 65 ml/hr. Percent of energy/protein needs met: 100%/79% Burn Absent Trauma Absent Current % PO Negligible Minimum of two criteria No Fluid Accumulation Mild (non-severe) #1 Nutrition Diagnosis Inadequate oral intake Diagnosis Progress(for reassessment Continues documentation) Is patient on ventilator? Yes Is Patient Ambulatory and/or Out of Bed No REE-([facility]-confined to bed) 2442.744 Kcal/Kg value to use for calculation 13 Approximate Energy Requirements Using 1517 kcal/Kg Calculation Used for Recommendations Kcal/kg Additional Notes Protein needs 173g (at least 2 g/kg IBW) Fluid needs 1.5-1.9L Nutrition Intervention Change Diet Order: Continue TF Nutrition Support: Vital HP at 65ml/hr Flush 100ml q4h Hypernatermia 250ml q4h Kcal 1,560 Protein (gm) 137 Fluid (mL) 1,304 Goal #1 TF meets at least 80% of energy and protein needs. Goal #2 TF tolerance Anticipated Discharge Needs: unable to determine at this time Follow-Up By: 01/06/20 Additional Comments F/U for stable TF
[2020-01-03 18:49] LABS: ABG HCO3 36.1 mmol/L (20.0-26.0); ABG Methemoglobin 0.6 % (0.0-1.5); ABG Oxygen Saturation 94.4 % (95.0-99.0); ABG PCO2 57.6 mm Hg; ABG PH 7.415 pH Units (7.350-7.450); ABG PO2 70.7 mm Hg (80.0-90.0)
[2020-01-03] MEDS: POLYETHYLENE GLYCOL 3350 17 GM POWDER PO SCH (22:18)
[2020-01-03] MEDS: TAMSULOSIN 0.4 MG CAP PO SCH (22:18)
[2020-01-04] MEDS: METOPROLOL TARTRATE 25 MG TAB FEEDTUBE SCH ×4 (00:03→19:14)
[2020-01-04] MEDS: VANCOMYCIN 1,750 MG in SODIUM CHLORIDE 0.9% 500 ML 500 ML IV SCH ×2 (00:03→14:49)
[2020-01-04] MEDS: fentaNYL DRIP Premix 2,000 MCG/100 ML BAG IV SCH ×3 (04:43→20:52)
[2020-01-04] MEDS: PIPERACIL/TAZOBACTA 4.5/NS 100 4.5 GM/100 ML VIAL IV SCH ×3 (06:13→23:30)
[2020-01-04 10:58] LABS: Basophils # (Auto) 0.1 K/mm3 (0.0-0.1); Basophils % (Auto) 0.6 % (0.0-1.8); Eosinophils # (Auto) 0.4 K/mm3 (0.0-0.4); Eosinophils % (Auto) 2.9 % (0.0-4.3); Hematocrit 28.2 % (35.5-45.6); Hemoglobin 8.7 gm/dl (11.8-15.2); Lymphocytes # (Auto) 2.1 K/mm3 (1.2-5.4); Lymphocytes % (Auto) 13.5 % (13.4-35.0); Mean Corpuscular HGB Conc 31 % (32-34); Mean Corpuscular Volume 85 fl (84-94); Monocytes # (Auto) 1.2 K/mm3 (0.0-0.8); Monocytes % (Auto) 7.6 % (0.0-7.3)
[2020-01-04 11:12] LABS: Alanine Aminotransferase 59 units/L (7-56); Albumin 2.6 g/dL (3.9-5); Blood Urea Nitrogen 17 mg/dL (9-20); Calcium 9.4 mg/dL (8.4-10.2); Hemolysis Index 0
[2020-01-04 11:13] LABS: BUN/Creatinine Ratio 28
--- NOTE | 2020-01-04 11:17 | Progress Note ---
<KACEY HICKEY - Last Filed: 01/04/20 11:15> Assessment and Plan Atrial fibrillation on amiodarone and metoprolol Ischemic Cardiomyopathy, resolving re-echo this presentation reports an LVEF 40-45%. echo 08/2018: decreased LVEF 20-25%. Hx of CAD [facility] 12/2018: mild in-stent restenosis. No significant residual disease. Multifocal pneumonia negative COVID-19 test x 2 Respiratory failure Acute PE/DVT on IV heparin Recommendations: Continue amiodarone and metoprolol for paroxysmal atrial fibrillation. Otherwise, conservative cardiac management. Subjective Date of service: 01/04/20 Principal diagnosis: Ac hypoxemic resp failure; Pneumonia; PUI COVID-19; CHF; COPD; HTN Interval history: No interval cardiac changes. Afib with a well controlled ventricular rate on telemetry. Objective Vital Signs Temp Pulse Pulse Resp Resp BP Pulse Ox 01/04/20 07:43 102 H 107/71 97 01/04/20 06:14 104 H 105/75 01/04/20 04:00 104 H 105/75 97 01/04/20 03:19 99.5 F 01/04/20 00:03 108 H 104/68 01/04/20 00:00 98.1 F 115 H 105 H 18 19 104/68 100 01/03/20 23:31 130 H 103/70 100 01/03/20 23:30 118 H 103/70 100 01/03/20 23:09 124 H 94/76 100 01/03/20 23:01 127 H 94/76 01/03/20 22:30 118 H 112/73 01/03/20 22:00 110 H 128/72 99 01/03/20 21:30 113 H 126/69 100 01/03/20 21:01 112 H 110/69 100 01/03/20 20:31 103 H 102/75 98 01/03/20 20:00 103 H 137 H 16 19 102/66 99 01/03/20 19:47 97.8 F 01/03/20 19:30 105 H 102/72 97 01/03/20 19:27 102 H 108/66 97 01/03/20 19:00 97 H 108/66 86 01/03/20 18:31 105 H 112/61 95 01/03/20 18:00 105 H 120/71 87 01/03/20 17:30 115 H 114/75 90 01/03/20 17:23 138 H 111/72 01/03/20 17:01 135 H 98/77 97 01/03/20 16:30 103 H 111/72 92 01/03/20 16:00 98.6 F 111 H 108 H 18 19 104/61 93 01/03/20 15:30 118 H 111/63 93 01/03/20 15:00 143 H 116/72 92 01/03/20 14:30 142 H 119/77 95 01/03/20 14:03 141 H 103/70 01/03/20 14:00 134 H 103/70 94 01/03/20 13:30 143 H 101/72 95 01/03/20 13:00 134 H 102/66 76 L 01/03/20 12:30 141 H 102/66 96 01/03/20 12:00 99.2 F 142 H 141 H 16 16 110/71 97 01/03/20 11:54 141 H 106/74 01/03/20 11:30 146 H 106/74 94 01/03/20 11:18 145 H 113/81 95 - Physical Examination General: Other (vent to trach) Cardiac: Positive: irregularly irregular Extremities: Absent: edema - Labs and Meds Cardiac Enzymes 01/04/20 Range/Units 09:50 AST 26 (5-40) units/L CBC 01/04/20 Range/Units 09:50 WBC 15.4 H (4.5-11.0) K/mm3 RBC 3.30 L (3.65-5.03) M/mm3 Hgb 8.7 L (11.8-15.2) gm/dl Hct 28.2 L (35.5-45.6) % Lymph # (Auto) 2.1 (1.2-5.4) K/mm3 [place] # (Auto) 1.2 H (0.0-0.8) K/mm3 Eos # (Auto) 0.4 (0.0-0.4) K/mm3 Baso # (Auto) 0.1 (0.0-0.1) K/mm3 Comprehensive Metabolic Panel 01/04/20 Range/Units 09:50 Sodium 148 H (137-145) mmol/L Potassium 3.5 L (3.6-5.0) mmol/L Chloride 105.0 (98-107) mmol/L BUN 17 (9-20) mg/dL Creatinine 0.6 L (0.8-1.3) mg/dL Glucose 114 H (75-100) mg/dL Calcium 9.4 (8.4-10.2) mg/dL AST 26 (5-40) units/L ALT 59 H (7-56) units/L Alkaline Phosphatase 65 (35-129) units/L Total Protein 6.4 (6.3-8.2) g/dL Albumin 2.6 L (3.9-5) g/dL - Allied health notes Allied health notes reviewed: RT <PETRONA SHAHID - Last Filed: 01/12/20 23:06> Assessment and Plan I SAWT HIS PT & AGREE WITH THE Dx & Tx PLAN. - Patient Problems (1) Acute respiratory failure Current Visit: Yes Status: Acute (2) Bilateral pneumonia Current Visit: Yes Status: Acute (3) COPD exacerbation Current Visit: No Status: Acute (4) Hypertension Current Visit: No Status: Acute Qualifiers: Hypertension type: essential hypertension Qualified Code(s): I10 - Essential (primary) hypertension (5) Cardiomyopathy Current Visit: Yes Status: Acute (6) Paroxysmal atrial fibrillation Current Visit: Yes Status: Acute Objective Vital Signs Temp Pulse Pulse Resp Resp BP Pulse Ox 01/12/20 22:00 78 18 97/67 100 01/12/20 21:45 76 23 98/64 100 01/12/20 21:30 56 L 22 96/60 95 01/12/20 21:15 60 22 100/61 95 01/12/20 21:00 63 21 100/64 96 01/12/20 20:45 76 18 100/70 100 01/12/20 20:30 83 19 107/76 01/12/20 20:24 83 98/71 01/12/20 20:21 83 98/71 100 01/12/20 20:15 79 22 98/71 99 01/12/20 20:09 98.4 F 01/12/20 20:00 77 84 24 20 94/70 99 01/12/20 19:45 79 21 102/71 99 01/12/20 19:30 79 26 H 102/69 97 01/12/20 19:15 84 20 107/75 99 10/20/20 19:00 86 23 103/75 98 10/20/20 18:45 76 25 H 94/66 97 10/20/20 18:30 71 21 99/62 96 10/20/20 18:15 66 21 103/65 95 10/20/20 18:00 65 22 102/63 96 10/20/20 17:45 77 19 99/68 99 10/20/20 17:42 10/20/20 17:38 81 96/70 98 10/20/20 17:30 83 22 96/70 97 10/20/20 17:15 82 20 105/73 96 10/20/20 17:00 83 22 101/68 96 10/20/20 16:45 83 22 104/67 95 10/20/20 16:30 83 21 106/63 96 10/20/20 16:15 84 21 105/75 98 10/20/20 16:00 98.6 F 82 82 22 104/73 96 10/20/20 15:45 82 21 100/69 95 10/20/20 15:30 83 20 103/70 96 10/20/20 15:16 82 101/72 10/20/20 15:15 83 21 101/72 96 10/20/20 15:00 82 21 106/66 97 10/20/20 14:45 83 21 99/71 96 10/20/20 14:30 82 20 105/68 96 10/20/20 14:15 81 21 101/68 98 10/20/20 14:00 81 21 102/67 95 10/20/20 13:45 85 21 108/71 96 10/20/20 13:30 82 19 100/69 99 10/20/20 13:15 82 20 100/68 95 10/20/20 13:00 82 21 97/69 95 10/20/20 12:45 81 19 97/69 94 10/20/20 12:30 81 21 103/70 93 10/20/20 12:15 87 25 H 117/71 93 10/20/20 12:00 98.1 F 87 87 25 H 122/78 94 10/20/20 11:45 95 H 21 117/83 97 10/20/20 11:30 89 21 113/73 97 10/20/20 11:16 86 18 105/75 98 10/20/20 11:15 85 21 105/75 96 10/20/20 11:00 83 24 106/73 97 10/20/20 10:45 84 23 116/69 94 10/20/20 10:30 95 H 21 127/85 97 10/20/20 10:15 85 24 124/81 96 10/20/20 10:02 87 120/75 10/20/20 10:00 87 24 120/75 95 10/20/20 09:45 87 22 118/76 96 10/20/20 09:30 82 23 111/75 94 10/20/20 09:15 82 24 115/76 94 10/20/20 09:00 88 23 117/81 96 10/20/20 08:45 94 H 14 130/79 97 10/20/20 08:33 85 22 119/79 100 10/20/20 08:30 89 26 H 119/79 100 10/20/20 08:15 83 21 113/77 99 10/20/20 08:00 98.3 F 82 80 17 103/73 97 10/20/20 07:45 83 24 113/77 99 10/20/20 07:30 83 21 112/73 99 10/20/20 07:15 84 19 111/74 100 10/20/20 07:00 84 19 122/74 99 10/20/20 06:45 85 21 117/76 99 10/20/20 06:30 86 21 122/79 99 10/20/20 06:15 87 20 116/83 99 10/20/20 06:00 91 H 21 125/84 100 10/20/20 05:45 87 19 115/80 98 10/20/20 05:30 83 19 118/75 97 10/20/20 05:15 89 20 122/78 97 10/20/20 05:00 92 H 22 123/81 98 10/20/20 04:45 98 H 18 117/80 99 10/20/20 04:31 89 21 117/80 98 10/20/20 04:23 88 117/80 98 10/20/20 04:15 87 16 117/80 98 10/20/20 04:00 98.4 F 85 88 19 111/82 97 10/20/20 03:57 10/20/20 03:45 84 22 100/74 98 10/20/20 03:30 86 21 107/75 98 10/20/20 03:15 85 20 107/76 98 10/20/20 03:00 84 21 111/74 98 10/20/20 02:45 83 20 110/74 99 10/20/20 02:30 82 20 105/71 98 10/20/20 02:15 78 19 95/69 98 10/20/20 02:00 79 19 100/69 97 10/20/20 01:45 84 21 111/75 98 10/20/20 01:30 85 22 116/84 97 10/20/20 01:15 78 19 98/72 99 10/20/20 01:00 73 19 91/65 99 10/20/20 00:45 75 18 96/68 99 1020/20 00:30 79 18 102/75 96 1020/20 00:15 76 18 94/68 99 1020/20 00:05 76 100/67 100 1020/20 00:00 77 76 18 22 100/67 99 19/20 23:45 76 20 92/66 98 1019/20 23:39 98.2 F 19/20 23:30 77 20 99/67 100 1019/20 23:15 82 18 100/73 100 Pulse Ox 20/20 22:00 20/20 21:45 1020/20 21:30 1020/20 21:15 1020/20 21:00 20/20 20:45 1020/20 20:30 1020/20 20:24 1020/20 20:21 1020/20 20:15 1020/20 20:09 20/20 20:00 1020/20 19:45 1020/20 19:30 1020/20 19:15 1020/20 19:00 1020/20 18:45 1020/20 18:30 1020/20 18:15 1020/20 18:00 1020/20 17:45 1020/20 17:42 99 1020/20 17:38 1020/20 17:30 1020/20 17:15 1020/20 17:00 1020/20 16:45 1020/20 16:30 1020/20 16:15 10/20/20 16:00 10/20/20 15:45 10/20/20 15:30 10/20/20 15:16 10/20/20 15:15 10/20/20 15:00 10/20/20 14:45 10/20/20 14:30 10/20/20 14:15 10/20/20 14:00 10/20/20 13:45 10/20/20 13:30 10/20/20 13:15 10/20/20 13:00 10/20/20 12:45 10/20/20 12:30 10/20/20 12:15 10/20/20 12:00 10/20/20 11:45 10/20/20 11:30 10/20/20 11:16 10/20/20 11:15 10/20/20 11:00 1020/20 10:45 1020/20 10:30 10/20/20 10:15 10/20/20 10:02 1020/20 10:00 1020/20 09:45 10/20/20 09:30 10/20/20 09:15 10/20/20 09:00 10/20/20 08:45 10/20/20 08:33 10/20/20 08:30 10/20/20 08:15 10/20/20 08:00 10/20/20 07:45 10/20/20 07:30 10/20/20 07:15 10/20/20 07:00 10/20/20 06:45 10/20/20 06:30 10/20/20 06:15 10/20/20 06:00 10/20/20 05:45 10/20/20 05:30 10/20/20 05:15 10/20/20 05:00 10/20/20 04:45 10/20/20 04:31 10/20/20 04:23 10/20/20 04:15 10/20/20 04:00 10/20/20 03:57 99 10/20/20 03:45 10/20/20 03:30 10/20/20 03:15 10/20/20 03:00 10/20/20 02:45 10/20/20 02:30 10/20/20 02:15 10/20/20 02:00 01/12/20 01:45 01/12/20 01:30 01/12/20 01:15 01/12/20 01:00 01/12/20 00:45 01/12/20 00:30 01/12/20 00:15 01/12/20 00:05 01/12/20 00:00 01/11/20 23:45 01/11/20 23:39 01/11/20 23:30 01/11/20 23:15 - Labs and Meds Cardiac Enzymes 01/12/20 Range/Units 00:23 AST 16 (5-40) units/L CBC 01/12/20 01/12/20 Range/Units 00:23 04:18 WBC 9.3 8.8 (4.5-11.0) K/mm3 RBC 3.81 3.80 (3.65-5.03) M/mm3 Hgb 9.8 L 9.6 L (11.8-15.2) gm/dl Hct 31.6 L 30.9 L (35.5-45.6) % Plt Count 250 248 (140-440) K/mm3 Lymph # (Auto) 2.2 (1.2-5.4) K/mm3 [place] # (Auto) 0.7 (0.0-0.8) K/mm3 Eos # (Auto) 0.2 (0.0-0.4) K/mm3 Baso # (Auto) 0.1 (0.0-0.1) K/mm3 Comprehensive Metabolic Panel 01/12/20 01/12/20 Range/Units 00:23 04:18 Sodium 144 143 (137-145) mmol/L Potassium 3.6 3.8 (3.6-5.0) mmol/L Chloride 102.9 100.8 (98-107) mmol/L Carbon Dioxide 29 28 (22-30) mmol/L BUN 11 11 (9-20) mg/dL Creatinine 0.7 L 0.7 L (0.8-1.3) mg/dL Glucose 111 H 108 H (75-100) mg/dL Calcium 8.8 8.8 (8.4-10.2) mg/dL AST 16 (5-40) units/L ALT 22 (7-56) units/L Alkaline Phosphatase 59 (35-129) units/L Total Protein 6.3 (6.3-8.2) g/dL Albumin 2.6 L (3.9-5) g/dL
[2020-01-04 11:38] LABS: Platelet Count 205 K/mm3 (140-440)
--- NOTE | 2020-01-04 13:18 | Progress Note ---
Assessment and Plan Acute hypoxemic respiratory failure s/p trach on MVS Bilateral pneumonia, community acquired. Acute congestive heart failure exacerbation. History of cerebrovascular accident. Acute chronic obstructive pulmonary disease exacerbation. Hypertension and hypertensive urgency at presentation. History of arthritis. Oropharyngeal dysphagia Right Lext DVT Pulmonary embolism Trach care, airway clearance, secretion management Anticoagulation for PE- stop heparin, start Apixaban Conservative fluid management as tolerated by hemodynamics, renal function and electrolytes Increase free water flushes for hypernatremia BMP in am Scheduled Bumex for 4 doses Monitor closely CXR, ABG as clinically indicated - continue to monitor renal function, hemodynamics and electrolyte profile - continue to wean oxygen for O2 sats > 90% - continue bronchodilators with pulmonary hygiene per RT - VAP bundle addressed (Aspiration precautions, HOB >40) - continue to wean per pulmonary driven protocols - continue prn analgesia per CPOT score - follow clinically re: fever curves / trend WBC - Avoid delirium (no benzodiazepines if they can be avoided) - Enteral nutrition at goal rate as tolerated - continue accuchecks with glycemic control per SSI for target blood glucose goal of 140-180 mg/dL while critically ill; Avoid hypoglycemia - continue stress ulcer prophylaxis with Famotidine BID - continue mobility protocols for pressure ulcer prophylaxis - continue fall precautions - Supportive transfusions as indicated to keep HgB>7g/dL - Continue to monitor neurologic function - Continue chronic home medications as clinically indicated - Continue all supportive care CONDITION: CRITICAL PROGNOSIS: GUARDED CODE STATUS: FULL CODE The high probability of a clinically significant, sudden or life threatening deterioration of the [Respiratory, cardiovascular & neurological] system(s) required my full and direct attention, intervention and personal management. The aggregate critical care time was [33] minutes without overlap. Time includes spent on [x] Data Review and interpretation [x] Patient assessment and monitoring of vital signs [x] Documentation [x] Medication orders and management Subjective Date of service: 01/04/20 Principal diagnosis: Ac hypoxemic resp failure; Pneumonia; PUI COVID-19; CHF; COPD; HTN Interval history: Patient is seen today for: Acute hypoxemic respiratory failure; Adan. Pneumonia (CAP); PUI COVID-19 infection; AE-CHF; AE-COPD; H/O CVA; HTN; PE, DVT Seen and examined at bedside; 24 hour events reviewed; nursing and respiratory care staff consulted; no adverse overnight events reported to me; resting peacefully in bed;s/p trach No asynchrony, No episodes of vomiting. No fevers. Tolerating some SBT today. Did well with one dose of Bumex yesterday, CXR shows persistent mixed alveolar-interstitial infiltrates Objective Vital Signs - 12hr 01/04/20 01/04/20 01/04/20 03:19 04:00 06:14 Temperature 99.5 F Pulse Rate 104 H 104 H Respiratory Rate Blood Pressure 105/75 105/75 O2 Sat by Pulse 97 Oximetry 01/04/20 01/04/20 07:43 12:28 Temperature Pulse Rate 102 H 95 H Respiratory 17 22 Rate Blood Pressure 107/71 109/73 O2 Sat by Pulse 97 94 Oximetry Constitutional: no acute distress, alert, other (elderly and obese male, normocephalic with mildly increased respiratory effort at rest on MVS) Eyes: non-icteric ENT: oropharynx moist, other (trach to MVS) Neck: supple, no JVD Effort: mildly labored Ascultation: Bilateral: clear, diminished breath sounds (bases R>L), rhonchi Percussion: Bilateral: not dull Cardiovascular: irregular rhythm, other (S1,S2) Gastrointestinal: normoactive bowel sounds, soft, non-tender, non-distended Integumentary: normal Extremities: no cyanosis, pulses normal, no ischemia or petechiae, edema (bilateral upper ) Neurologic: normal mental status, non-focal exam (moves all extremities with extreme agitation), pupils equal and round, motor strength normal and Psychiatric: mood appropriate, affect normal CBC and BMP: 01/04/20 09:50 01/04/20 09:50 ABG, PT/INR, D-dimer: ABG ABG pH 7.415 pH Units (7.350-7.450) 01/03/20 18:30 POC ABG pCO2 52.9 mmHg (32.0-48.0) H 12/22/19 03:22 ABG pCO2 57.6 mm Hg 01/03/20 18:30 POC ABG pO2 52.3 mmHg (83-108) L 12/22/19 03:22 ABG pO2 70.7 mm Hg (80.0-90.0) L 01/03/20 18:30 POC ABG HCO3 33.4 12/22/19 03:22 ABG O2 Saturation 94.4 % (95.0-99.0) L 01/03/20 18:30 PT/INR, D-dimer PT 13.8 Sec. (12.2-14.9) 12/21/19 10:13 INR 1.05 (0.87-1.13) 12/21/19 10:13 Abnormal lab findings: Abnormal Labs 11/24/19 11/24/19 11/24/19 02:53 02:53 03:45 WBC 14.3 H RBC Hgb Hct MCHC RDW 17.2 H MCH Lymph % (Auto) [place] % (Auto) [place] # Eos # Lymph # (Auto) [place] # (Auto) Eos # (Auto) Seg Neutrophils % Seg Neuts % (Manual) Baso # (Auto) Lymphocytes % (Manual) Monocytes % (Manual) Eosinophils % (Manual) Basophils % (Manual) Seg Neutrophils # Seg Neutrophils # Man 8.3 H Lymphocytes # (Manual) Monocytes # (Manual) 0.9 H Eosinophils # (Manual) Nucleated RBC % Basophils # (Manual) APTT Heparin Anti-Xa Level ABG pH 7.313 L POC ABG pO2 ABG pO2 102.8 H ABG HCO3 ABG O2 Saturation ABG Base Excess -2.9 L POC ABG pCO2 ABG Hemoglobin ABG Oxyhemoglobin Oxyhemoglobin 93.9 L Sodium Potassium Chloride Carbon Dioxide BUN Creatinine Glucose 195 H POC Glucose Lactic Acid Calcium Phosphorus Magnesium AST ALT Lactate Dehydrogenase CK-MB (CK-2) 4.3 H C-Reactive Protein NT-Pro-B Natriuret Pep 1181 H Total Protein Albumin Urine WBC (Auto) 11/24/19 11/24/19 11/24/19 04:53 04:53 10:37 WBC RBC Hgb Hct MCHC RDW MCH Lymph % (Auto) [place] % (Auto) [place] # Eos # Lymph # (Auto) [place] # (Auto) Eos # (Auto) Seg Neutrophils % Seg Neuts % (Manual) Baso # (Auto) Lymphocytes % (Manual) Monocytes % (Manual) Eosinophils % (Manual) Basophils % (Manual) Seg Neutrophils # Seg Neutrophils # Man Lymphocytes # (Manual) Monocytes # (Manual) Eosinophils # (Manual) Nucleated RBC % Basophils # (Manual) APTT Heparin Anti-Xa Level ABG pH POC ABG pO2 ABG pO2 ABG HCO3 ABG O2 Saturation ABG Base Excess POC ABG pCO2 ABG Hemoglobin ABG Oxyhemoglobin Oxyhemoglobin Sodium Potassium Chloride Carbon Dioxide BUN Creatinine Glucose 162 H POC Glucose Lactic Acid 2.40 H* 2.50 H* Calcium Phosphorus Magnesium AST ALT Lactate Dehydrogenase 240 H CK-MB (CK-2) C-Reactive Protein NT-Pro-B Natriuret Pep Total Protein Albumin Urine WBC (Auto) 11/24/19 11/24/19 11/24/19 12:21 14:50 19:54 WBC RBC Hgb Hct MCHC RDW MCH Lymph % (Auto) [place] % (Auto) [place] # Eos # Lymph # (Auto) [place] # (Auto) Eos # (Auto) Seg Neutrophils % Seg Neuts % (Manual) Baso # (Auto) Lymphocytes % (Manual) Monocytes % (Manual) Eosinophils % (Manual) Basophils % (Manual) Seg Neutrophils # Seg Neutrophils # Man Lymphocytes # (Manual) Monocytes # (Manual) Eosinophils # (Manual) Nucleated RBC % Basophils # (Manual) APTT Heparin Anti-Xa Level ABG pH POC ABG pO2 ABG pO2 ABG HCO3 ABG O2 Saturation ABG Base Excess POC ABG pCO2 ABG Hemoglobin ABG Oxyhemoglobin Oxyhemoglobin Sodium Potassium Chloride Carbon Dioxide BUN Creatinine Glucose POC Glucose 145 H 143 H 124 H Lactic Acid Calcium Phosphorus Magnesium AST ALT Lactate Dehydrogenase CK-MB (CK-2) C-Reactive Protein NT-Pro-B Natriuret Pep Total Protein Albumin Urine WBC (Auto) 11/25/19 11/25/19 11/25/19 00:18 03:18 05:11 WBC 13.7 H RBC Hgb Hct MCHC RDW 17.1 H MCH Lymph % (Auto) 10.8 L [place] % (Auto) 8.7 H [place] # 1.2 H Eos # Lymph # (Auto) [place] # (Auto) Eos # (Auto) Seg Neutrophils % 80.2 H Seg Neuts % (Manual) Baso # (Auto) Lymphocytes % (Manual) Monocytes % (Manual) Eosinophils % (Manual) Basophils % (Manual) Seg Neutrophils # 11.0 H Seg Neutrophils # Man Lymphocytes # (Manual) Monocytes # (Manual) Eosinophils # (Manual) Nucleated RBC % Basophils # (Manual) APTT Heparin Anti-Xa Level ABG pH 7.333 L POC ABG pO2 ABG pO2 61.2 L ABG HCO3 ABG O2 Saturation 90.2 L ABG Base Excess POC ABG pCO2 ABG Hemoglobin 13.7 L ABG Oxyhemoglobin Oxyhemoglobin 88.2 L Sodium Potassium Chloride Carbon Dioxide BUN Creatinine Glucose POC Glucose 109 H Lactic Acid Calcium Phosphorus Magnesium AST ALT Lactate Dehydrogenase CK-MB (CK-2) C-Reactive Protein NT-Pro-B Natriuret Pep Total Protein Albumin Urine WBC (Auto) 11/25/19 11/25/19 11/26/19 05:11 11:40 03:12 WBC RBC Hgb Hct MCHC RDW MCH Lymph % (Auto) [place] % (Auto) [place] # Eos # Lymph # (Auto) [place] # (Auto) Eos # (Auto) Seg Neutrophils % Seg Neuts % (Manual) Baso # (Auto) Lymphocytes % (Manual) Monocytes % (Manual) Eosinophils % (Manual) Basophils % (Manual) Seg Neutrophils # Seg Neutrophils # Man Lymphocytes # (Manual) Monocytes # (Manual) Eosinophils # (Manual) Nucleated RBC % Basophils # (Manual) APTT Heparin Anti-Xa Level ABG pH POC ABG pO2 ABG pO2 155.1 H ABG HCO3 27.8 H ABG O2 Saturation ABG Base Excess POC ABG pCO2 ABG Hemoglobin 12.2 L ABG Oxyhemoglobin Oxyhemoglobin Sodium Potassium Chloride Carbon Dioxide BUN 23 H Creatinine Glucose 110 H POC Glucose 108 H Lactic Acid Calcium Phosphorus Magnesium AST ALT Lactate Dehydrogenase CK-MB (CK-2) C-Reactive Protein NT-Pro-B Natriuret Pep Total Protein Albumin Urine WBC (Auto) 11/26/19 11/26/19 11/26/19 06:17 10:43 10:43 WBC 11.4 H RBC Hgb Hct MCHC RDW 17.1 H MCH Lymph % (Auto) [place] % (Auto) [place] # Eos # Lymph # (Auto) [place] # (Auto) Eos # (Auto) Seg Neutrophils % Seg Neuts % (Manual) Baso # (Auto) Lymphocytes % (Manual) Monocytes % (Manual) Eosinophils % (Manual) Basophils % (Manual) Seg Neutrophils # Seg Neutrophils # Man Lymphocytes # (Manual) Monocytes # (Manual) Eosinophils # (Manual) Nucleated RBC % Basophils # (Manual) APTT Heparin Anti-Xa Level ABG pH POC ABG pO2 ABG pO2 ABG HCO3 ABG O2 Saturation ABG Base Excess POC ABG pCO2 ABG Hemoglobin ABG Oxyhemoglobin Oxyhemoglobin Sodium Potassium Chloride Carbon Dioxide BUN 29 H Creatinine Glucose POC Glucose 107 H Lactic Acid Calcium Phosphorus Magnesium AST ALT Lactate Dehydrogenase CK-MB (CK-2) C-Reactive Protein NT-Pro-B Natriuret Pep Total Protein Albumin Urine WBC (Auto) 11/26/19 11/27/19 11/27/19 17:11 01:53 04:11 WBC RBC Hgb Hct MCHC RDW MCH Lymph % (Auto) [place] % (Auto) [place] # Eos # Lymph # (Auto) [place] # (Auto) Eos # (Auto) Seg Neutrophils % Seg Neuts % (Manual) Baso # (Auto) Lymphocytes % (Manual) Monocytes % (Manual) Eosinophils % (Manual) Basophils % (Manual) Seg Neutrophils # Seg Neutrophils # Man Lymphocytes # (Manual) Monocytes # (Manual) Eosinophils # (Manual) Nucleated RBC % Basophils # (Manual) APTT Heparin Anti-Xa Level ABG pH POC ABG pO2 ABG pO2 ABG HCO3 29.2 H ABG O2 Saturation ABG Base Excess 3.4 H POC ABG pCO2 ABG Hemoglobin 13.3 L ABG Oxyhemoglobin Oxyhemoglobin 94.5 L Sodium Potassium Chloride Carbon Dioxide BUN Creatinine Glucose POC Glucose 113 H 108 H Lactic Acid Calcium Phosphorus Magnesium AST ALT Lactate Dehydrogenase CK-MB (CK-2) C-Reactive Protein NT-Pro-B Natriuret Pep Total Protein Albumin Urine WBC (Auto) 11/27/19 11/28/19 11/28/19 05:27 05:00 05:25 WBC RBC Hgb Hct MCHC RDW MCH Lymph % (Auto) [place] % (Auto) [place] # Eos # Lymph # (Auto) [place] # (Auto) Eos # (Auto) Seg Neutrophils % Seg Neuts % (Manual) Baso # (Auto) Lymphocytes % (Manual) Monocytes % (Manual) Eosinophils % (Manual) Basophils % (Manual) Seg Neutrophils # Seg Neutrophils # Man Lymphocytes # (Manual) Monocytes # (Manual) Eosinophils # (Manual) Nucleated RBC % Basophils # (Manual) APTT Heparin Anti-Xa Level ABG pH POC ABG pO2 68.1 L ABG pO2 ABG HCO3 ABG O2 Saturation ABG Base Excess POC ABG pCO2 ABG Hemoglobin ABG Oxyhemoglobin 91.2 L Oxyhemoglobin Sodium Potassium Chloride Carbon Dioxide BUN Creatinine Glucose POC Glucose 111 H 110 H Lactic Acid Calcium Phosphorus Magnesium AST ALT Lactate Dehydrogenase CK-MB (CK-2) C-Reactive Protein NT-Pro-B Natriuret Pep Total Protein Albumin Urine WBC (Auto) 11/28/19 11/28/19 11/28/19 12:08 13:47 13:47 WBC 11.3 H RBC Hgb Hct MCHC RDW 16.1 H MCH Lymph % (Auto) [place] % (Auto) 9.9 H [place] # 1.1 H Eos # Lymph # (Auto) [place] # (Auto) Eos # (Auto) Seg Neutrophils % 71.4 H Seg Neuts % (Manual) Baso # (Auto) Lymphocytes % (Manual) Monocytes % (Manual) Eosinophils % (Manual) Basophils % (Manual) Seg Neutrophils # 8.1 H Seg Neutrophils # Man Lymphocytes # (Manual) Monocytes # (Manual) Eosinophils # (Manual) Nucleated RBC % Basophils # (Manual) APTT Heparin Anti-Xa Level ABG pH POC ABG pO2 ABG pO2 ABG HCO3 ABG O2 Saturation ABG Base Excess POC ABG pCO2 ABG Hemoglobin ABG Oxyhemoglobin Oxyhemoglobin Sodium Potassium Chloride Carbon Dioxide BUN 23 H Creatinine Glucose 123 H POC Glucose 112 H Lactic Acid Calcium Phosphorus Magnesium AST ALT Lactate Dehydrogenase CK-MB (CK-2) C-Reactive Protein NT-Pro-B Natriuret Pep Total Protein Albumin 3.7 L Urine WBC (Auto) 11/28/19 11/29/19 11/29/19 17:26 03:55 17:04 WBC RBC Hgb Hct MCHC RDW MCH Lymph % (Auto) [place] % (Auto) [place] # Eos # Lymph # (Auto) [place] # (Auto) Eos # (Auto) Seg Neutrophils % Seg Neuts % (Manual) Baso # (Auto) Lymphocytes % (Manual) Monocytes % (Manual) Eosinophils % (Manual) Basophils % (Manual) Seg Neutrophils # Seg Neutrophils # Man Lymphocytes # (Manual) Monocytes # (Manual) Eosinophils # (Manual) Nucleated RBC % Basophils # (Manual) APTT Heparin Anti-Xa Level ABG pH POC ABG pO2 ABG pO2 65.7 L ABG HCO3 28.3 H ABG O2 Saturation 93.9 L ABG Base Excess 3.6 H POC ABG pCO2 ABG Hemoglobin 13.3 L ABG Oxyhemoglobin Oxyhemoglobin 91.5 L Sodium Potassium Chloride Carbon Dioxide BUN Creatinine Glucose POC Glucose 123 H 119 H Lactic Acid Calcium Phosphorus Magnesium AST ALT Lactate Dehydrogenase CK-MB (CK-2) C-Reactive Protein NT-Pro-B Natriuret Pep Total Protein Albumin Urine WBC (Auto) 11/30/19 11/30/19 11/30/19 04:17 04:17 04:56 WBC 13.4 H RBC Hgb Hct MCHC RDW 15.6 H MCH Lymph % (Auto) [place] % (Auto) [place] # Eos # Lymph # (Auto) [place] # (Auto) Eos # (Auto) Seg Neutrophils % Seg Neuts % (Manual) Baso # (Auto) Lymphocytes % (Manual) Monocytes % (Manual) Eosinophils % (Manual) Basophils % (Manual) Seg Neutrophils # Seg Neutrophils # Man Lymphocytes # (Manual) Monocytes # (Manual) Eosinophils # (Manual) Nucleated RBC % Basophils # (Manual) APTT Heparin Anti-Xa Level ABG pH POC ABG pO2 ABG pO2 56.3 L ABG HCO3 29.3 H ABG O2 Saturation 91.5 L ABG Base Excess 4.7 H POC ABG pCO2 ABG Hemoglobin 12.1 L ABG Oxyhemoglobin Oxyhemoglobin 89.2 L Sodium 147 H Potassium Chloride Carbon Dioxide BUN 30 H Creatinine Glucose 124 H POC Glucose Lactic Acid Calcium Phosphorus Magnesium AST ALT Lactate Dehydrogenase CK-MB (CK-2) C-Reactive Protein NT-Pro-B Natriuret Pep Total Protein Albumin 3.8 L Urine WBC (Auto) 11/30/19 11/30/19 11/30/19 05:51 11:54 18:17 WBC RBC Hgb Hct MCHC RDW MCH Lymph % (Auto) [place] % (Auto) [place] # Eos # Lymph # (Auto) [place] # (Auto) Eos # (Auto) Seg Neutrophils % Seg Neuts % (Manual) Baso # (Auto) Lymphocytes % (Manual) Monocytes % (Manual) Eosinophils % (Manual) Basophils % (Manual) Seg Neutrophils # Seg Neutrophils # Man Lymphocytes # (Manual) Monocytes # (Manual) Eosinophils # (Manual) Nucleated RBC % Basophils # (Manual) APTT Heparin Anti-Xa Level ABG pH POC ABG pO2 ABG pO2 ABG HCO3 ABG O2 Saturation ABG Base Excess POC ABG pCO2 ABG Hemoglobin ABG Oxyhemoglobin Oxyhemoglobin Sodium Potassium Chloride Carbon Dioxide BUN Creatinine Glucose POC Glucose 127 H 115 H 143 H Lactic Acid Calcium Phosphorus Magnesium AST ALT Lactate Dehydrogenase CK-MB (CK-2) C-Reactive Protein NT-Pro-B Natriuret Pep Total Protein Albumin Urine WBC (Auto) 12/01/19 12/01/19 12/01/19 01:18 05:22 12:16 WBC RBC Hgb Hct MCHC RDW MCH Lymph % (Auto) [place] % (Auto) [place] # Eos # Lymph # (Auto) [place] # (Auto) Eos # (Auto) Seg Neutrophils % Seg Neuts % (Manual) Baso # (Auto) Lymphocytes % (Manual) Monocytes % (Manual) Eosinophils % (Manual) Basophils % (Manual) Seg Neutrophils # Seg Neutrophils # Man Lymphocytes # (Manual) Monocytes # (Manual) Eosinophils # (Manual) Nucleated RBC % Basophils # (Manual) APTT Heparin Anti-Xa Level ABG pH POC ABG pO2 ABG pO2 ABG HCO3 ABG O2 Saturation ABG Base Excess POC ABG pCO2 ABG Hemoglobin ABG Oxyhemoglobin Oxyhemoglobin Sodium Potassium 3.5 L Chloride 107.8 H Carbon Dioxide BUN 37 H Creatinine Glucose 157 H POC Glucose 118 H 148 H Lactic Acid Calcium 8.2 L D Phosphorus Magnesium AST 48 H ALT 60 H Lactate Dehydrogenase 194 H CK-MB (CK-2) C-Reactive Protein 8.50 H NT-Pro-B Natriuret Pep Total Protein 5.5 L Albumin 2.8 L Urine WBC (Auto) 12/01/19 12/02/19 12/02/19 18:04 00:05 05:16 WBC 11.4 H RBC Hgb Hct MCHC RDW 15.9 H MCH Lymph % (Auto) [place] % (Auto) 9.9 H [place] # 1.1 H Eos # Lymph # (Auto) [place] # (Auto) Eos # (Auto) Seg Neutrophils % 70.3 H Seg Neuts % (Manual) Baso # (Auto) Lymphocytes % (Manual) Monocytes % (Manual) Eosinophils % (Manual) Basophils % (Manual) Seg Neutrophils # 8.0 H Seg Neutrophils # Man Lymphocytes # (Manual) Monocytes # (Manual) Eosinophils # (Manual) Nucleated RBC % Basophils # (Manual) APTT Heparin Anti-Xa Level ABG pH POC ABG pO2 ABG pO2 ABG HCO3 ABG O2 Saturation ABG Base Excess POC ABG pCO2 ABG Hemoglobin ABG Oxyhemoglobin Oxyhemoglobin Sodium Potassium Chloride Carbon Dioxide BUN Creatinine Glucose POC Glucose 143 H 107 H Lactic Acid Calcium Phosphorus Magnesium AST ALT Lactate Dehydrogenase CK-MB (CK-2) C-Reactive Protein NT-Pro-B Natriuret Pep Total Protein Albumin Urine WBC (Auto) 12/02/19 12/02/19 12/02/19 05:16 06:03 11:52 WBC RBC Hgb Hct MCHC RDW MCH Lymph % (Auto) [place] % (Auto) [place] # Eos # Lymph # (Auto) [place] # (Auto) Eos # (Auto) Seg Neutrophils % Seg Neuts % (Manual) Baso # (Auto) Lymphocytes % (Manual) Monocytes % (Manual) Eosinophils % (Manual) Basophils % (Manual) Seg Neutrophils # Seg Neutrophils # Man Lymphocytes # (Manual) Monocytes # (Manual) Eosinophils # (Manual) Nucleated RBC % Basophils # (Manual) APTT Heparin Anti-Xa Level ABG pH POC ABG pO2 ABG pO2 ABG HCO3 ABG O2 Saturation ABG Base Excess POC ABG pCO2 ABG Hemoglobin ABG Oxyhemoglobin Oxyhemoglobin Sodium 146 H Potassium Chloride Carbon Dioxide BUN 28 H Creatinine Glucose 123 H POC Glucose 110 H 152 H Lactic Acid Calcium Phosphorus Magnesium AST ALT Lactate Dehydrogenase CK-MB (CK-2) C-Reactive Protein NT-Pro-B Natriuret Pep Total Protein Albumin Urine WBC (Auto) 12/02/19 12/02/19 12/02/19 12:58 17:58 23:36 WBC RBC Hgb Hct MCHC RDW MCH Lymph % (Auto) [place] % (Auto) [place] # Eos # Lymph # (Auto) [place] # (Auto) Eos # (Auto) Seg Neutrophils % Seg Neuts % (Manual) Baso # (Auto) Lymphocytes % (Manual) Monocytes % (Manual) Eosinophils % (Manual) Basophils % (Manual) Seg Neutrophils # Seg Neutrophils # Man Lymphocytes # (Manual) Monocytes # (Manual) Eosinophils # (Manual) Nucleated RBC % Basophils # (Manual) APTT Heparin Anti-Xa Level ABG pH POC ABG pO2 78.1 L ABG pO2 ABG HCO3 ABG O2 Saturation ABG Base Excess POC ABG pCO2 ABG Hemoglobin ABG Oxyhemoglobin Oxyhemoglobin Sodium Potassium Chloride Carbon Dioxide BUN Creatinine Glucose POC Glucose 120 H 123 H Lactic Acid Calcium Phosphorus Magnesium AST ALT Lactate Dehydrogenase CK-MB (CK-2) C-Reactive Protein NT-Pro-B Natriuret Pep Total Protein Albumin Urine WBC (Auto) 12/03/19 12/03/19 12/03/19 06:03 06:14 11:46 WBC RBC Hgb Hct MCHC RDW MCH Lymph % (Auto) [place] % (Auto) [place] # Eos # Lymph # (Auto) [place] # (Auto) Eos # (Auto) Seg Neutrophils % Seg Neuts % (Manual) Baso # (Auto) Lymphocytes % (Manual) Monocytes % (Manual) Eosinophils % (Manual) Basophils % (Manual) Seg Neutrophils # Seg Neutrophils # Man Lymphocytes # (Manual) Monocytes # (Manual) Eosinophils # (Manual) Nucleated RBC % Basophils # (Manual) APTT Heparin Anti-Xa Level ABG pH POC ABG pO2 ABG pO2 ABG HCO3 ABG O2 Saturation ABG Base Excess POC ABG pCO2 ABG Hemoglobin ABG Oxyhemoglobin Oxyhemoglobin Sodium Potassium Chloride Carbon Dioxide BUN Creatinine Glucose POC Glucose 142 H 130 H Lactic Acid Calcium Phosphorus Magnesium AST ALT Lactate Dehydrogenase CK-MB (CK-2) C-Reactive Protein NT-Pro-B Natriuret Pep Total Protein Albumin Urine WBC (Auto) 8.0 H 12/03/19 12/03/19 12/04/19 15:50 17:39 00:04 WBC RBC Hgb Hct MCHC RDW MCH Lymph % (Auto) [place] % (Auto) [place] # Eos # Lymph # (Auto) [place] # (Auto) Eos # (Auto) Seg Neutrophils % Seg Neuts % (Manual) Baso # (Auto) Lymphocytes % (Manual) Monocytes % (Manual) Eosinophils % (Manual) Basophils % (Manual) Seg Neutrophils # Seg Neutrophils # Man Lymphocytes # (Manual) Monocytes # (Manual) Eosinophils # (Manual) Nucleated RBC % Basophils # (Manual) APTT Heparin Anti-Xa Level ABG pH POC ABG pO2 ABG pO2 ABG HCO3 ABG O2 Saturation ABG Base Excess POC ABG pCO2 ABG Hemoglobin ABG Oxyhemoglobin Oxyhemoglobin Sodium Potassium Chloride Carbon Dioxide BUN Creatinine Glucose POC Glucose 146 H 133 H Lactic Acid Calcium Phosphorus 2.40 L Magnesium AST ALT Lactate Dehydrogenase CK-MB (CK-2) C-Reactive Protein NT-Pro-B Natriuret Pep Total Protein Albumin Urine WBC (Auto) 12/04/19 12/04/19 12/04/19 03:58 03:58 05:22 WBC 12.5 H RBC Hgb 11.2 L Hct 35.2 L MCHC RDW 16.0 H MCH Lymph % (Auto) [place] % (Auto) 9.6 H [place] # 1.2 H Eos # 0.5 H Lymph # (Auto) [place] # (Auto) Eos # (Auto) Seg Neutrophils % Seg Neuts % (Manual) Baso # (Auto) Lymphocytes % (Manual) Monocytes % (Manual) Eosinophils % (Manual) Basophils % (Manual) Seg Neutrophils # 8.6 H Seg Neutrophils # Man Lymphocytes # (Manual) Monocytes # (Manual) Eosinophils # (Manual) Nucleated RBC % Basophils # (Manual) APTT Heparin Anti-Xa Level ABG pH POC ABG pO2 ABG pO2 ABG HCO3 ABG O2 Saturation ABG Base Excess POC ABG pCO2 ABG Hemoglobin ABG Oxyhemoglobin Oxyhemoglobin Sodium 146 H Potassium Chloride 108.6 H Carbon Dioxide BUN 30 H Creatinine 0.7 L Glucose 121 H POC Glucose 132 H Lactic Acid Calcium Phosphorus Magnesium AST ALT Lactate Dehydrogenase CK-MB (CK-2) C-Reactive Protein NT-Pro-B Natriuret Pep Total Protein Albumin Urine WBC (Auto) 12/04/19 12/04/19 12/05/19 13:26 18:43 00:19 WBC RBC Hgb Hct MCHC RDW MCH Lymph % (Auto) [place] % (Auto) [place] # Eos # Lymph # (Auto) [place] # (Auto) Eos # (Auto) Seg Neutrophils % Seg Neuts % (Manual) Baso # (Auto) Lymphocytes % (Manual) Monocytes % (Manual) Eosinophils % (Manual) Basophils % (Manual) Seg Neutrophils # Seg Neutrophils # Man Lymphocytes # (Manual) Monocytes # (Manual) Eosinophils # (Manual) Nucleated RBC % Basophils # (Manual) APTT Heparin Anti-Xa Level ABG pH POC ABG pO2 ABG pO2 ABG HCO3 ABG O2 Saturation ABG Base Excess POC ABG pCO2 ABG Hemoglobin ABG Oxyhemoglobin Oxyhemoglobin Sodium Potassium Chloride Carbon Dioxide BUN Creatinine Glucose POC Glucose 185 H 156 H 150 H Lactic Acid Calcium Phosphorus Magnesium AST ALT Lactate Dehydrogenase CK-MB (CK-2) C-Reactive Protein NT-Pro-B Natriuret Pep Total Protein Albumin Urine WBC (Auto) 12/05/19 12/05/19 12/05/19 03:37 03:37 05:14 WBC 16.3 H RBC Hgb 11.4 L Hct MCHC RDW 15.6 H MCH Lymph % (Auto) 9.9 L [place] % (Auto) 9.7 H [place] # 1.6 H Eos # Lymph # (Auto) [place] # (Auto) Eos # (Auto) Seg Neutrophils % 78.0 H Seg Neuts % (Manual) Baso # (Auto) Lymphocytes % (Manual) Monocytes % (Manual) Eosinophils % (Manual) Basophils % (Manual) Seg Neutrophils # 12.7 H Seg Neutrophils # Man Lymphocytes # (Manual) Monocytes # (Manual) Eosinophils # (Manual) Nucleated RBC % Basophils # (Manual) APTT Heparin Anti-Xa Level ABG pH POC ABG pO2 ABG pO2 ABG HCO3 ABG O2 Saturation ABG Base Excess POC ABG pCO2 ABG Hemoglobin ABG Oxyhemoglobin Oxyhemoglobin Sodium 146 H Potassium Chloride 107.2 H Carbon Dioxide BUN 27 H Creatinine 0.7 L Glucose 171 H POC Glucose 168 H Lactic Acid Calcium Phosphorus Magnesium AST ALT Lactate Dehydrogenase CK-MB (CK-2) C-Reactive Protein NT-Pro-B Natriuret Pep Total Protein Albumin Urine WBC (Auto) 12/05/19 12/05/19 12/05/19 12:31 18:10 23:58 WBC RBC Hgb Hct MCHC RDW MCH Lymph % (Auto) [place] % (Auto) [place]key # Eos # Lymph # (Auto) Dickey # (Auto) Eos # (Auto) Seg Neutrophils % Seg Neuts % (Manual) Baso # (Auto) Lymphocytes % (Manual) Monocytes % (Manual) Eosinophils % (Manual) Basophils % (Manual) Seg Neutrophils # Seg Neutrophils # Man Lymphocytes # (Manual) Monocytes # (Manual) Eosinophils # (Manual) Nucleated RBC % Basophils # (Manual) APTT Heparin Anti-Xa Level ABG pH POC ABG pO2 ABG pO2 ABG HCO3 ABG O2 Saturation ABG Base Excess POC ABG pCO2 ABG Hemoglobin ABG Oxyhemoglobin Oxyhemoglobin Sodium Potassium Chloride Carbon Dioxide BUN Creatinine Glucose POC Glucose 159 H 198 H 115 H Lactic Acid Calcium Phosphorus Magnesium AST ALT Lactate Dehydrogenase CK-MB (CK-2) C-Reactive Protein NT-Pro-B Natriuret Pep Total Protein Albumin Urine WBC (Auto) 12/06/19 12/06/19 12/06/19 05:24 05:24 05:25 WBC 14.9 H RBC Hgb 10.8 L Hct 34.0 L MCHC RDW 15.6 H MCH Lymph % (Auto) 10.7 L [place] % (Auto) 8.3 H [place] # 1.2 H Eos # Lymph # (Auto) [place] # (Auto) Eos # (Auto) Seg Neutrophils % 78.7 H Seg Neuts % (Manual) Baso # (Auto) Lymphocytes % (Manual) Monocytes % (Manual) Eosinophils % (Manual) Basophils % (Manual) Seg Neutrophils # 11.7 H Seg Neutrophils # Man Lymphocytes # (Manual) Monocytes # (Manual) Eosinophils # (Manual) Nucleated RBC % Basophils # (Manual) APTT Heparin Anti-Xa Level ABG pH POC ABG pO2 ABG pO2 ABG HCO3 ABG O2 Saturation ABG Base Excess POC ABG pCO2 ABG Hemoglobin ABG Oxyhemoglobin Oxyhemoglobin Sodium 148 H Potassium 5.1 H Chloride 107.6 H Carbon Dioxide BUN 27 H Creatinine 0.7 L Glucose 155 H POC Glucose 157 H Lactic Acid Calcium Phosphorus Magnesium AST ALT Lactate Dehydrogenase CK-MB (CK-2) C-Reactive Protein NT-Pro-B Natriuret Pep Total Protein Albumin Urine WBC (Auto) 12/07/19 12/07/19 12/07/19 00:13 05:34 11:33 WBC RBC Hgb Hct MCHC RDW MCH Lymph % (Auto) [place] % (Auto) [place] # Eos # Lymph # (Auto) [place] # (Auto) Eos # (Auto) Seg Neutrophils % Seg Neuts % (Manual) Baso # (Auto) Lymphocytes % (Manual) Monocytes % (Manual) Eosinophils % (Manual) Basophils % (Manual) Seg Neutrophils # Seg Neutrophils # Man Lymphocytes # (Manual) Monocytes # (Manual) Eosinophils # (Manual) Nucleated RBC % Basophils # (Manual) APTT Heparin Anti-Xa Level ABG pH POC ABG pO2 ABG pO2 ABG HCO3 ABG O2 Saturation ABG Base Excess POC ABG pCO2 ABG Hemoglobin ABG Oxyhemoglobin Oxyhemoglobin Sodium Potassium Chloride Carbon Dioxide BUN Creatinine Glucose POC Glucose 142 H 111 H 169 H Lactic Acid Calcium Phosphorus Magnesium AST ALT Lactate Dehydrogenase CK-MB (CK-2) C-Reactive Protein NT-Pro-B Natriuret Pep Total Protein Albumin Urine WBC (Auto) 12/07/19 12/07/19 12/07/19 12:41 13:25 18:19 WBC 12.4 H RBC 3.53 L Hgb 10.2 L Hct 32.1 L MCHC RDW 15.3 H MCH Lymph % (Auto) 10.6 L [place] % (Auto) 7.8 H [place] # 1.0 H Eos # Lymph # (Auto) [place] # (Auto) Eos # (Auto) Seg Neutrophils % 77.6 H Seg Neuts % (Manual) Baso # (Auto) Lymphocytes % (Manual) Monocytes % (Manual) Eosinophils % (Manual) Basophils % (Manual) Seg Neutrophils # 9.6 H Seg Neutrophils # Man Lymphocytes # (Manual) Monocytes # (Manual) Eosinophils # (Manual) Nucleated RBC % Basophils # (Manual) APTT Heparin Anti-Xa Level ABG pH POC ABG pO2 ABG pO2 ABG HCO3 ABG O2 Saturation ABG Base Excess POC ABG pCO2 ABG Hemoglobin ABG Oxyhemoglobin Oxyhemoglobin Sodium 149 H Potassium Chloride 108.4 H Carbon Dioxide BUN 26 H Creatinine 0.6 L Glucose 149 H POC Glucose 164 H Lactic Acid Calcium Phosphorus Magnesium 2.60 H AST 121 H ALT 145 H Lactate Dehydrogenase CK-MB (CK-2) C-Reactive Protein NT-Pro-B Natriuret Pep Total Protein Albumin 2.6 L Urine WBC (Auto) 12/07/19 12/08/19 12/08/19 22:25 00:02 03:55 WBC 13.3 H RBC 3.40 L Hgb 9.7 L Hct 30.8 L MCHC 31 L RDW 15.5 H MCH Lymph % (Auto) [place] % (Auto) 8.1 H [place] # 1.1 H Eos # Lymph # (Auto) [place] # (Auto) Eos # (Auto) Seg Neutrophils % 73.0 H Seg Neuts % (Manual) Baso # (Auto) Lymphocytes % (Manual) Monocytes % (Manual) Eosinophils % (Manual) Basophils % (Manual) Seg Neutrophils # 9.7 H Seg Neutrophils # Man Lymphocytes # (Manual) Monocytes # (Manual) Eosinophils # (Manual) Nucleated RBC % Basophils # (Manual) APTT Heparin Anti-Xa Level 0.12 L ABG pH POC ABG pO2 ABG pO2 ABG HCO3 ABG O2 Saturation ABG Base Excess POC ABG pCO2 ABG Hemoglobin ABG Oxyhemoglobin Oxyhemoglobin Sodium Potassium Chloride Carbon Dioxide BUN Creatinine Glucose POC Glucose 151 H Lactic Acid Calcium Phosphorus Magnesium AST ALT Lactate Dehydrogenase CK-MB (CK-2) C-Reactive Protein NT-Pro-B Natriuret Pep Total Protein Albumin Urine WBC (Auto) 12/08/19 12/08/19 12/08/19 03:55 05:21 06:01 WBC RBC Hgb Hct MCHC RDW MCH Lymph % (Auto) [place] % (Auto) [place] # Eos # Lymph # (Auto) [place] # (Auto) Eos # (Auto) Seg Neutrophils % Seg Neuts % (Manual) Baso # (Auto) Lymphocytes % (Manual) Monocytes % (Manual) Eosinophils % (Manual) Basophils % (Manual) Seg Neutrophils # Seg Neutrophils # Man Lymphocytes # (Manual) Monocytes # (Manual) Eosinophils # (Manual) Nucleated RBC % Basophils # (Manual) APTT Heparin Anti-Xa Level 0.20 L ABG pH POC ABG pO2 ABG pO2 ABG HCO3 ABG O2 Saturation ABG Base Excess POC ABG pCO2 ABG Hemoglobin ABG Oxyhemoglobin Oxyhemoglobin Sodium 149 H Potassium Chloride 108.0 H Carbon Dioxide BUN 28 H Creatinine 0.6 L Glucose 144 H POC Glucose 143 H Lactic Acid Calcium Phosphorus Magnesium AST 98 H ALT 145 H Lactate Dehydrogenase CK-MB (CK-2) C-Reactive Protein NT-Pro-B Natriuret Pep Total Protein 6.0 L Albumin 2.4 L Urine WBC (Auto) 12/08/19 12/08/19 12/08/19 12:08 18:11 23:53 WBC RBC Hgb Hct MCHC RDW MCH Lymph % (Auto) [place] % (Auto) [place] # Eos # Lymph # (Auto) [place] # (Auto) Eos # (Auto) Seg Neutrophils % Seg Neuts % (Manual) Baso # (Auto) Lymphocytes % (Manual) Monocytes % (Manual) Eosinophils % (Manual) Basophils % (Manual) Seg Neutrophils # Seg Neutrophils # Man Lymphocytes # (Manual) Monocytes # (Manual) Eosinophils # (Manual) Nucleated RBC % Basophils # (Manual) APTT Heparin Anti-Xa Level ABG pH POC ABG pO2 ABG pO2 ABG HCO3 ABG O2 Saturation ABG Base Excess POC ABG pCO2 ABG Hemoglobin ABG Oxyhemoglobin Oxyhemoglobin Sodium Potassium Chloride Carbon Dioxide BUN Creatinine Glucose POC Glucose 172 H 122 H 162 H Lactic Acid Calcium Phosphorus Magnesium AST ALT Lactate Dehydrogenase CK-MB (CK-2) C-Reactive Protein NT-Pro-B Natriuret Pep Total Protein Albumin Urine WBC (Auto) 12/09/19 12/09/19 12/09/19 04:03 04:03 05:53 WBC RBC Hgb 9.1 L Hct 28.9 L MCHC RDW MCH Lymph % (Auto) [place] % (Auto) [place] # Eos # Lymph # (Auto) [place] # (Auto) Eos # (Auto) Seg Neutrophils % Seg Neuts % (Manual) Baso # (Auto) Lymphocytes % (Manual) Monocytes % (Manual) Eosinophils % (Manual) Basophils % (Manual) Seg Neutrophils # Seg Neutrophils # Man Lymphocytes # (Manual) Monocytes # (Manual) Eosinophils # (Manual) Nucleated RBC % Basophils # (Manual) APTT Heparin Anti-Xa Level 0.15 L ABG pH POC ABG pO2 ABG pO2 ABG HCO3 ABG O2 Saturation ABG Base Excess POC ABG pCO2 ABG Hemoglobin ABG Oxyhemoglobin Oxyhemoglobin Sodium Potassium Chloride Carbon Dioxide BUN Creatinine Glucose POC Glucose 124 H Lactic Acid Calcium Phosphorus Magnesium AST ALT Lactate Dehydrogenase CK-MB (CK-2) C-Reactive Protein NT-Pro-B Natriuret Pep Total Protein Albumin Urine WBC (Auto) 12/09/19 12/09/19 12/10/19 09:43 12:41 00:13 WBC RBC Hgb Hct MCHC RDW MCH Lymph % (Auto) [place] % (Auto) [place] # Eos # Lymph # (Auto) [place] # (Auto) Eos # (Auto) Seg Neutrophils % Seg Neuts % (Manual) Baso # (Auto) Lymphocytes % (Manual) Monocytes % (Manual) Eosinophils % (Manual) Basophils % (Manual) Seg Neutrophils # Seg Neutrophils # Man Lymphocytes # (Manual) Monocytes # (Manual) Eosinophils # (Manual) Nucleated RBC % Basophils # (Manual) APTT Heparin Anti-Xa Level ABG pH POC ABG pO2 ABG pO2 ABG HCO3 ABG O2 Saturation ABG Base Excess POC ABG pCO2 ABG Hemoglobin ABG Oxyhemoglobin Oxyhemoglobin Sodium Potassium Chloride Carbon Dioxide BUN 25 H Creatinine 0.6 L Glucose 131 H POC Glucose 109 H 120 H Lactic Acid Calcium Phosphorus Magnesium AST ALT Lactate Dehydrogenase CK-MB (CK-2) C-Reactive Protein NT-Pro-B Natriuret Pep Total Protein Albumin Urine WBC (Auto) 12/10/19 12/10/19 12/10/19 04:14 04:14 12:00 WBC 13.3 H RBC 3.34 L Hgb 9.6 L Hct 30.4 L MCHC RDW 15.4 H MCH Lymph % (Auto) [place] % (Auto) [place] # Eos # Lymph # (Auto) [place] # (Auto) Eos # (Auto) Seg Neutrophils % Seg Neuts % (Manual) 75.0 H Baso # (Auto) Lymphocytes % (Manual) 13.0 L Monocytes % (Manual) 8.0 H Eosinophils % (Manual) Basophils % (Manual) 2.0 H Seg Neutrophils # Seg Neutrophils # Man 10.0 H Lymphocytes # (Manual) Monocytes # (Manual) 1.1 H Eosinophils # (Manual) Nucleated RBC % Basophils # (Manual) 0.3 H APTT Heparin Anti-Xa Level ABG pH POC ABG pO2 ABG pO2 ABG HCO3 ABG O2 Saturation ABG Base Excess POC ABG pCO2 ABG Hemoglobin ABG Oxyhemoglobin Oxyhemoglobin Sodium 147 H Potassium Chloride 108.3 H Carbon Dioxide BUN 21 H Creatinine 0.6 L Glucose 104 H POC Glucose 133 H Lactic Acid Calcium Phosphorus Magnesium AST ALT Lactate Dehydrogenase CK-MB (CK-2) C-Reactive Protein NT-Pro-B Natriuret Pep Total Protein Albumin Urine WBC (Auto) 12/10/19 12/10/19 12/11/19 18:44 21:20 00:08 WBC 14.9 H RBC 3.36 L Hgb 9.6 L Hct 30.5 L MCHC RDW 15.4 H MCH Lymph % (Auto) [place] % (Auto) [place] # Eos # Lymph # (Auto) [place] # (Auto) Eos # (Auto) Seg Neutrophils % Seg Neuts % (Manual) Baso # (Auto) Lymphocytes % (Manual) Monocytes % (Manual) Eosinophils % (Manual) Basophils % (Manual) Seg Neutrophils # Seg Neutrophils # Man Lymphocytes # (Manual) Monocytes # (Manual) Eosinophils # (Manual) Nucleated RBC % Basophils # (Manual) APTT Heparin Anti-Xa Level ABG pH POC ABG pO2 ABG pO2 ABG HCO3 ABG O2 Saturation ABG Base Excess POC ABG pCO2 ABG Hemoglobin ABG Oxyhemoglobin Oxyhemoglobin Sodium Potassium Chloride Carbon Dioxide BUN Creatinine Glucose POC Glucose 119 H 134 H Lactic Acid Calcium Phosphorus Magnesium AST ALT Lactate Dehydrogenase CK-MB (CK-2) C-Reactive Protein NT-Pro-B Natriuret Pep Total Protein Albumin Urine WBC (Auto) 12/11/19 12/11/19 12/11/19 03:54 07:28 08:36 WBC 11.9 H RBC 3.25 L Hgb 9.6 L Hct 29.2 L MCHC RDW 15.7 H MCH Lymph % (Auto) [place] % (Auto) [place] # Eos # Lymph # (Auto) [place] # (Auto) Eos # (Auto) Seg Neutrophils % Seg Neuts % (Manual) Baso # (Auto) Lymphocytes % (Manual) Monocytes % (Manual) Eosinophils % (Manual) Basophils % (Manual) Seg Neutrophils # Seg Neutrophils # Man Lymphocytes # (Manual) Monocytes # (Manual) Eosinophils # (Manual) Nucleated RBC % Basophils # (Manual) APTT Heparin Anti-Xa Level 0.10 L 0.16 L ABG pH POC ABG pO2 ABG pO2 ABG HCO3 ABG O2 Saturation ABG Base Excess POC ABG pCO2 ABG Hemoglobin ABG Oxyhemoglobin Oxyhemoglobin Sodium Potassium Chloride Carbon Dioxide BUN Creatinine Glucose POC Glucose Lactic Acid Calcium Phosphorus Magnesium AST ALT Lactate Dehydrogenase CK-MB (CK-2) C-Reactive Protein NT-Pro-B Natriuret Pep Total Protein Albumin Urine WBC (Auto) 12/11/19 12/11/19 12/11/19 08:36 11:45 17:15 WBC RBC Hgb Hct MCHC RDW MCH Lymph % (Auto) [place] % (Auto) [place] # Eos # Lymph # (Auto) [place] # (Auto) Eos # (Auto) Seg Neutrophils % Seg Neuts % (Manual) Baso # (Auto) Lymphocytes % (Manual) Monocytes % (Manual) Eosinophils % (Manual) Basophils % (Manual) Seg Neutrophils # Seg Neutrophils # Man Lymphocytes # (Manual) Monocytes # (Manual) Eosinophils # (Manual) Nucleated RBC % Basophils # (Manual) APTT Heparin Anti-Xa Level ABG pH POC ABG pO2 ABG pO2 ABG HCO3 ABG O2 Saturation ABG Base Excess POC ABG pCO2 ABG Hemoglobin ABG Oxyhemoglobin Oxyhemoglobin Sodium Potassium Chloride Carbon Dioxide BUN Creatinine 0.5 L Glucose 128 H POC Glucose 136 H 109 H Lactic Acid Calcium Phosphorus Magnesium AST ALT Lactate Dehydrogenase CK-MB (CK-2) C-Reactive Protein NT-Pro-B Natriuret Pep Total Protein Albumin Urine WBC (Auto) 12/12/19 12/12/19 12/12/19 00:03 05:53 05:53 WBC RBC Hgb 8.8 L Hct 27.6 L MCHC RDW MCH Lymph % (Auto) [place] % (Auto) [place] # Eos # Lymph # (Auto) [place] # (Auto) Eos # (Auto) Seg Neutrophils % Seg Neuts % (Manual) Baso # (Auto) Lymphocytes % (Manual) Monocytes % (Manual) Eosinophils % (Manual) Basophils % (Manual) Seg Neutrophils # Seg Neutrophils # Man Lymphocytes # (Manual) Monocytes # (Manual) Eosinophils # (Manual) Nucleated RBC % Basophils # (Manual) APTT Heparin Anti-Xa Level 0.22 L ABG pH POC ABG pO2 ABG pO2 ABG HCO3 ABG O2 Saturation ABG Base Excess POC ABG pCO2 ABG Hemoglobin ABG Oxyhemoglobin Oxyhemoglobin Sodium Potassium Chloride Carbon Dioxide BUN Creatinine Glucose POC Glucose 116 H Lactic Acid Calcium Phosphorus Magnesium AST ALT Lactate Dehydrogenase CK-MB (CK-2) C-Reactive Protein NT-Pro-B Natriuret Pep Total Protein Albumin Urine WBC (Auto) 12/12/19 12/12/19 12/12/19 09:38 12:18 17:44 WBC RBC Hgb Hct MCHC RDW MCH Lymph % (Auto) [place] % (Auto) [place] # Eos # Lymph # (Auto) [place] # (Auto) Eos # (Auto) Seg Neutrophils % Seg Neuts % (Manual) Baso # (Auto) Lymphocytes % (Manual) Monocytes % (Manual) Eosinophils % (Manual) Basophils % (Manual) Seg Neutrophils # Seg Neutrophils # Man Lymphocytes # (Manual) Monocytes # (Manual) Eosinophils # (Manual) Nucleated RBC % Basophils # (Manual) APTT Heparin Anti-Xa Level ABG pH POC ABG pO2 ABG pO2 ABG HCO3 ABG O2 Saturation ABG Base Excess POC ABG pCO2 ABG Hemoglobin ABG Oxyhemoglobin Oxyhemoglobin Sodium Potassium Chloride Carbon Dioxide BUN Creatinine Glucose POC Glucose 115 H 146 H 146 H Lactic Acid Calcium Phosphorus Magnesium AST ALT Lactate Dehydrogenase CK-MB (CK-2) C-Reactive Protein NT-Pro-B Natriuret Pep Total Protein Albumin Urine WBC (Auto) 12/12/19 12/13/19 12/13/19 23:33 05:32 05:32 WBC 13.1 H RBC 3.27 L Hgb 9.5 L Hct 29.3 L MCHC RDW 15.6 H MCH Lymph % (Auto) [place] % (Auto) [place] # Eos # Lymph # (Auto) [place] # (Auto) Eos # (Auto) Seg Neutrophils % Seg Neuts % (Manual) 74.0 H Baso # (Auto) Lymphocytes % (Manual) 8.0 L Monocytes % (Manual) 9.0 H Eosinophils % (Manual) 5.0 H Basophils % (Manual) Seg Neutrophils # Seg Neutrophils # Man 9.7 H Lymphocytes # (Manual) 1.0 L Monocytes # (Manual) 1.2 H Eosinophils # (Manual) 0.7 H Nucleated RBC % Basophils # (Manual) APTT Heparin Anti-Xa Level 0.20 L ABG pH POC ABG pO2 ABG pO2 ABG HCO3 ABG O2 Saturation ABG Base Excess POC ABG pCO2 ABG Hemoglobin ABG Oxyhemoglobin Oxyhemoglobin Sodium Potassium Chloride Carbon Dioxide BUN Creatinine Glucose POC Glucose 126 H Lactic Acid Calcium Phosphorus Magnesium AST ALT Lactate Dehydrogenase CK-MB (CK-2) C-Reactive Protein NT-Pro-B Natriuret Pep Total Protein Albumin Urine WBC (Auto) 12/13/19 12/13/19 12/13/19 05:32 05:46 11:57 WBC RBC Hgb Hct MCHC RDW MCH Lymph % (Auto) [place] % (Auto) [place] # Eos # Lymph # (Auto) [place] # (Auto) Eos # (Auto) Seg Neutrophils % Seg Neuts % (Manual) Baso # (Auto) Lymphocytes % (Manual) Monocytes % (Manual) Eosinophils % (Manual) Basophils % (Manual) Seg Neutrophils # Seg Neutrophils # Man Lymphocytes # (Manual) Monocytes # (Manual) Eosinophils # (Manual) Nucleated RBC % Basophils # (Manual) APTT Heparin Anti-Xa Level ABG pH POC ABG pO2 ABG pO2 ABG HCO3 ABG O2 Saturation ABG Base Excess POC ABG pCO2 ABG Hemoglobin ABG Oxyhemoglobin Oxyhemoglobin Sodium Potassium Chloride Carbon Dioxide 31 H BUN Creatinine 0.6 L Glucose 114 H POC Glucose 118 H 133 H Lactic Acid Calcium Phosphorus Magnesium AST ALT Lactate Dehydrogenase CK-MB (CK-2) C-Reactive Protein NT-Pro-B Natriuret Pep Total Protein Albumin Urine WBC (Auto) 12/13/19 12/13/19 12/14/19 17:44 23:46 05:32 WBC RBC Hgb Hct MCHC RDW MCH Lymph % (Auto) [place] % (Auto) [place] # Eos # Lymph # (Auto) [place] # (Auto) Eos # (Auto) Seg Neutrophils % Seg Neuts % (Manual) Baso # (Auto) Lymphocytes % (Manual) Monocytes % (Manual) Eosinophils % (Manual) Basophils % (Manual) Seg Neutrophils # Seg Neutrophils # Man Lymphocytes # (Manual) Monocytes # (Manual) Eosinophils # (Manual) Nucleated RBC % Basophils # (Manual) APTT Heparin Anti-Xa Level ABG pH POC ABG pO2 ABG pO2 ABG HCO3 ABG O2 Saturation ABG Base Excess POC ABG pCO2 ABG Hemoglobin ABG Oxyhemoglobin Oxyhemoglobin Sodium Potassium Chloride Carbon Dioxide BUN Creatinine Glucose POC Glucose 161 H 126 H 139 H Lactic Acid Calcium Phosphorus Magnesium AST ALT Lactate Dehydrogenase CK-MB (CK-2) C-Reactive Protein NT-Pro-B Natriuret Pep Total Protein Albumin Urine WBC (Auto) 12/14/19 12/14/19 12/14/19 06:03 06:03 09:37 WBC RBC Hgb 9.6 L Hct 30.4 L MCHC RDW MCH Lymph % (Auto) [place] % (Auto) [place] # Eos # Lymph # (Auto) [place] # (Auto) Eos # (Auto) Seg Neutrophils % Seg Neuts % (Manual) Baso # (Auto) Lymphocytes % (Manual) Monocytes % (Manual) Eosinophils % (Manual) Basophils % (Manual) Seg Neutrophils # Seg Neutrophils # Man Lymphocytes # (Manual) Monocytes # (Manual) Eosinophils # (Manual) Nucleated RBC % Basophils # (Manual) APTT Heparin Anti-Xa Level 0.24 L ABG pH POC ABG pO2 ABG pO2 ABG HCO3 ABG O2 Saturation ABG Base Excess POC ABG pCO2 ABG Hemoglobin ABG Oxyhemoglobin Oxyhemoglobin Sodium Potassium Chloride Carbon Dioxide BUN Creatinine 0.6 L Glucose 162 H POC Glucose Lactic Acid Calcium Phosphorus Magnesium AST 71 H ALT 118 H Lactate Dehydrogenase CK-MB (CK-2) C-Reactive Protein NT-Pro-B Natriuret Pep Total Protein 6.2 L Albumin 2.3 L Urine WBC (Auto) 12/14/19 12/14/19 12/15/19 12:06 18:18 00:19 WBC RBC Hgb Hct MCHC RDW MCH Lymph % (Auto) [place] % (Auto) [place] # Eos # Lymph # (Auto) [place] # (Auto) Eos # (Auto) Seg Neutrophils % Seg Neuts % (Manual) Baso # (Auto) Lymphocytes % (Manual) Monocytes % (Manual) Eosinophils % (Manual) Basophils % (Manual) Seg Neutrophils # Seg Neutrophils # Man Lymphocytes # (Manual) Monocytes # (Manual) Eosinophils # (Manual) Nucleated RBC % Basophils # (Manual) APTT Heparin Anti-Xa Level ABG pH POC ABG pO2 ABG pO2 ABG HCO3 ABG O2 Saturation ABG Base Excess POC ABG pCO2 ABG Hemoglobin ABG Oxyhemoglobin Oxyhemoglobin Sodium Potassium Chloride Carbon Dioxide BUN Creatinine Glucose POC Glucose 147 H 166 H 123 H Lactic Acid Calcium Phosphorus Magnesium AST ALT Lactate Dehydrogenase CK-MB (CK-2) C-Reactive Protein NT-Pro-B Natriuret Pep Total Protein Albumin Urine WBC (Auto) 12/15/19 12/15/19 12/15/19 05:28 05:29 05:29 WBC 14.9 H RBC 3.19 L Hgb 9.1 L Hct 28.7 L MCHC RDW 16.0 H MCH Lymph % (Auto) [place] % (Auto) [place] # Eos # Lymph # (Auto) [place] # (Auto) Eos # (Auto) Seg Neutrophils % Seg Neuts % (Manual) Baso # (Auto) Lymphocytes % (Manual) Monocytes % (Manual) Eosinophils % (Manual) Basophils % (Manual) Seg Neutrophils # Seg Neutrophils # Man Lymphocytes # (Manual) Monocytes # (Manual) Eosinophils # (Manual) Nucleated RBC % Basophils # (Manual) APTT Heparin Anti-Xa Level 0.19 L ABG pH POC ABG pO2 ABG pO2 ABG HCO3 ABG O2 Saturation ABG Base Excess POC ABG pCO2 ABG Hemoglobin ABG Oxyhemoglobin Oxyhemoglobin Sodium Potassium Chloride Carbon Dioxide BUN Creatinine 0.6 L Glucose 110 H POC Glucose Lactic Acid Calcium Phosphorus Magnesium AST ALT Lactate Dehydrogenase CK-MB (CK-2) C-Reactive Protein NT-Pro-B Natriuret Pep Total Protein Albumin Urine WBC (Auto) 12/15/19 12/15/19 12/15/19 05:53 11:50 17:26 WBC RBC Hgb Hct MCHC RDW MCH Lymph % (Auto) [place] % (Auto) [place] # Eos # Lymph # (Auto) [place] # (Auto) Eos # (Auto) Seg Neutrophils % Seg Neuts % (Manual) Baso # (Auto) Lymphocytes % (Manual) Monocytes % (Manual) Eosinophils % (Manual) Basophils % (Manual) Seg Neutrophils # Seg Neutrophils # Man Lymphocytes # (Manual) Monocytes # (Manual) Eosinophils # (Manual) Nucleated RBC % Basophils # (Manual) APTT Heparin Anti-Xa Level ABG pH POC ABG pO2 ABG pO2 ABG HCO3 ABG O2 Saturation ABG Base Excess POC ABG pCO2 ABG Hemoglobin ABG Oxyhemoglobin Oxyhemoglobin Sodium Potassium Chloride Carbon Dioxide BUN Creatinine Glucose POC Glucose 119 H 132 H 128 H Lactic Acid Calcium Phosphorus Magnesium AST ALT Lactate Dehydrogenase CK-MB (CK-2) C-Reactive Protein NT-Pro-B Natriuret Pep Total Protein Albumin Urine WBC (Auto) 12/15/19 12/16/19 12/16/19 23:11 05:30 05:46 WBC RBC Hgb 8.8 L Hct 27.9 L MCHC RDW MCH Lymph % (Auto) [place] % (Auto) [place] # Eos # Lymph # (Auto) [place] # (Auto) Eos # (Auto) Seg Neutrophils % Seg Neuts % (Manual) Baso # (Auto) Lymphocytes % (Manual) Monocytes % (Manual) Eosinophils % (Manual) Basophils % (Manual) Seg Neutrophils # Seg Neutrophils # Man Lymphocytes # (Manual) Monocytes # (Manual) Eosinophils # (Manual) Nucleated RBC % Basophils # (Manual) APTT Heparin Anti-Xa Level ABG pH POC ABG pO2 ABG pO2 ABG HCO3 ABG O2 Saturation ABG Base Excess POC ABG pCO2 ABG Hemoglobin ABG Oxyhemoglobin Oxyhemoglobin Sodium Potassium Chloride Carbon Dioxide BUN Creatinine Glucose POC Glucose 150 H 134 H Lactic Acid Calcium Phosphorus Magnesium AST ALT Lactate Dehydrogenase CK-MB (CK-2) C-Reactive Protein NT-Pro-B Natriuret Pep Total Protein Albumin Urine WBC (Auto) 12/16/19 12/16/19 12/16/19 05:46 05:46 11:44 WBC RBC Hgb Hct MCHC RDW MCH Lymph % (Auto) [place] % (Auto) [place] # Eos # Lymph # (Auto) [place] # (Auto) Eos # (Auto) Seg Neutrophils % Seg Neuts % (Manual) Baso # (Auto) Lymphocytes % (Manual) Monocytes % (Manual) Eosinophils % (Manual) Basophils % (Manual) Seg Neutrophils # Seg Neutrophils # Man Lymphocytes # (Manual) Monocytes # (Manual) Eosinophils # (Manual) Nucleated RBC % Basophils # (Manual) APTT Heparin Anti-Xa Level 0.20 L ABG pH POC ABG pO2 ABG pO2 ABG HCO3 ABG O2 Saturation ABG Base Excess POC ABG pCO2 ABG Hemoglobin ABG Oxyhemoglobin Oxyhemoglobin Sodium Potassium Chloride Carbon Dioxide 31 H BUN Creatinine 0.5 L Glucose 147 H POC Glucose 164 H Lactic Acid Calcium Phosphorus Magnesium AST ALT Lactate Dehydrogenase CK-MB (CK-2) C-Reactive Protein NT-Pro-B Natriuret Pep Total Protein Albumin Urine WBC (Auto) 12/16/19 12/16/19 12/17/19 17:17 23:49 05:30 WBC 13.9 H RBC 3.27 L Hgb 9.4 L Hct 29.2 L MCHC RDW 16.0 H MCH Lymph % (Auto) [place] % (Auto) 8.8 H [place] # Eos # Lymph # (Auto) [place] # (Auto) 1.2 H Eos # (Auto) 0.5 H Seg Neutrophils % 70.5 H Seg Neuts % (Manual) Baso # (Auto) 0.2 H Lymphocytes % (Manual) Monocytes % (Manual) Eosinophils % (Manual) Basophils % (Manual) Seg Neutrophils # 9.8 H Seg Neutrophils # Man Lymphocytes # (Manual) Monocytes # (Manual) Eosinophils # (Manual) Nucleated RBC % Basophils # (Manual) APTT Heparin Anti-Xa Level ABG pH POC ABG pO2 ABG pO2 ABG HCO3 ABG O2 Saturation ABG Base Excess POC ABG pCO2 ABG Hemoglobin ABG Oxyhemoglobin Oxyhemoglobin Sodium Potassium Chloride Carbon Dioxide BUN Creatinine Glucose POC Glucose 162 H 144 H Lactic Acid Calcium Phosphorus Magnesium AST ALT Lactate Dehydrogenase CK-MB (CK-2) C-Reactive Protein NT-Pro-B Natriuret Pep Total Protein Albumin Urine WBC (Auto) 12/17/19 12/17/19 12/17/19 05:30 06:06 11:50 WBC RBC Hgb Hct MCHC RDW MCH Lymph % (Auto) [place] % (Auto) [place] # Eos # Lymph # (Auto) [place] # (Auto) Eos # (Auto) Seg Neutrophils % Seg Neuts % (Manual) Baso # (Auto) Lymphocytes % (Manual) Monocytes % (Manual) Eosinophils % (Manual) Basophils % (Manual) Seg Neutrophils # Seg Neutrophils # Man Lymphocytes # (Manual) Monocytes # (Manual) Eosinophils # (Manual) Nucleated RBC % Basophils # (Manual) APTT Heparin Anti-Xa Level ABG pH POC ABG pO2 ABG pO2 ABG HCO3 ABG O2 Saturation ABG Base Excess POC ABG pCO2 ABG Hemoglobin ABG Oxyhemoglobin Oxyhemoglobin Sodium Potassium Chloride 97.4 L Carbon Dioxide 32 H BUN Creatinine 0.5 L Glucose 135 H POC Glucose 151 H 140 H Lactic Acid Calcium Phosphorus Magnesium AST ALT Lactate Dehydrogenase CK-MB (CK-2) C-Reactive Protein NT-Pro-B Natriuret Pep Total Protein Albumin Urine WBC (Auto) 12/17/19 12/17/19 12/18/19 17:50 23:46 05:17 WBC RBC Hgb 8.8 L Hct 28.0 L MCHC RDW MCH Lymph % (Auto) [place] % (Auto) D[place]key # Eos # Lymph # (Auto) [place] # (Auto) Eos # (Auto) Seg Neutrophils % Seg Neuts % (Manual) Baso # (Auto) Lymphocytes % (Manual) Monocytes % (Manual) Eosinophils % (Manual) Basophils % (Manual) Seg Neutrophils # Seg Neutrophils # Man Lymphocytes # (Manual) Monocytes # (Manual) Eosinophils # (Manual) Nucleated RBC % Basophils # (Manual) APTT Heparin Anti-Xa Level ABG pH POC ABG pO2 ABG pO2 ABG HCO3 ABG O2 Saturation ABG Base Excess POC ABG pCO2 ABG Hemoglobin ABG Oxyhemoglobin Oxyhemoglobin Sodium Potassium Chloride Carbon Dioxide BUN Creatinine Glucose POC Glucose 158 H 150 H Lactic Acid Calcium Phosphorus Magnesium AST ALT Lactate Dehydrogenase CK-MB (CK-2) C-Reactive Protein NT-Pro-B Natriuret Pep Total Protein Albumin Urine WBC (Auto) 12/18/19 12/18/19 12/18/19 05:17 05:49 11:12 WBC RBC Hgb Hct MCHC RDW MCH Lymph % (Auto) [place] % (Auto) [place] # Eos # Lymph # (Auto) [place] # (Auto) Eos # (Auto) Seg Neutrophils % Seg Neuts % (Manual) Baso # (Auto) Lymphocytes % (Manual) Monocytes % (Manual) Eosinophils % (Manual) Basophils % (Manual) Seg Neutrophils # Seg Neutrophils # Man Lymphocytes # (Manual) Monocytes # (Manual) Eosinophils # (Manual) Nucleated RBC % Basophils # (Manual) APTT Heparin Anti-Xa Level 0.16 L ABG pH POC ABG pO2 ABG pO2 ABG HCO3 ABG O2 Saturation ABG Base Excess POC ABG pCO2 ABG Hemoglobin ABG Oxyhemoglobin Oxyhemoglobin Sodium Potassium Chloride Carbon Dioxide BUN Creatinine Glucose POC Glucose 127 H 191 H Lactic Acid Calcium Phosphorus Magnesium AST ALT Lactate Dehydrogenase CK-MB (CK-2) C-Reactive Protein NT-Pro-B Natriuret Pep Total Protein Albumin Urine WBC (Auto) 12/18/19 12/18/19 12/19/19 17:03 20:16 00:08 WBC RBC Hgb Hct MCHC RDW MCH Lymph % (Auto) [place] % (Auto) [place] # Eos # Lymph # (Auto) [place] # (Auto) Eos # (Auto) Seg Neutrophils % Seg Neuts % (Manual) Baso # (Auto) Lymphocytes % (Manual) Monocytes % (Manual) Eosinophils % (Manual) Basophils % (Manual) Seg Neutrophils # Seg Neutrophils # Man Lymphocytes # (Manual) Monocytes # (Manual) Eosinophils # (Manual) Nucleated RBC % Basophils # (Manual) APTT Heparin Anti-Xa Level ABG pH POC ABG pO2 ABG pO2 ABG HCO3 ABG O2 Saturation ABG Base Excess POC ABG pCO2 ABG Hemoglobin ABG Oxyhemoglobin Oxyhemoglobin Sodium Potassium Chloride Carbon Dioxide BUN Creatinine Glucose POC Glucose 133 H 128 H 129 H Lactic Acid Calcium Phosphorus Magnesium AST ALT Lactate Dehydrogenase CK-MB (CK-2) C-Reactive Protein NT-Pro-B Natriuret Pep Total Protein Albumin Urine WBC (Auto) 12/19/19 12/19/19 12/19/19 04:45 04:45 05:35 WBC RBC Hgb Hct MCHC RDW MCH Lymph % (Auto) [place] % (Auto) [place] # Eos # Lymph # (Auto) [place] # (Auto) Eos # (Auto) Seg Neutrophils % Seg Neuts % (Manual) Baso # (Auto) Lymphocytes % (Manual) Monocytes % (Manual) Eosinophils % (Manual) Basophils % (Manual) Seg Neutrophils # Seg Neutrophils # Man Lymphocytes # (Manual) Monocytes # (Manual) Eosinophils # (Manual) Nucleated RBC % Basophils # (Manual) APTT Heparin Anti-Xa Level 0.17 L ABG pH POC ABG pO2 ABG pO2 ABG HCO3 ABG O2 Saturation ABG Base Excess POC ABG pCO2 ABG Hemoglobin ABG Oxyhemoglobin Oxyhemoglobin Sodium Potassium Chloride Carbon Dioxide BUN Creatinine Glucose POC Glucose 120 H Lactic Acid Calcium Phosphorus Magnesium AST ALT Lactate Dehydrogenase 228 H CK-MB (CK-2) C-Reactive Protein NT-Pro-B Natriuret Pep Total Protein Albumin Urine WBC (Auto) 12/19/19 12/19/19 12/19/19 09:20 11:32 11:32 WBC 14.6 H RBC 3.08 L Hgb 9.0 L Hct 26.8 L MCHC RDW 15.9 H MCH Lymph % (Auto) [place] % (Auto) [place] # Eos # Lymph # (Auto) [place] # (Auto) Eos # (Auto) Seg Neutrophils % Seg Neuts % (Manual) 82.0 H Baso # (Auto) Lymphocytes % (Manual) 10.0 L Monocytes % (Manual) Eosinophils % (Manual) Basophils % (Manual) Seg Neutrophils # Seg Neutrophils # Man 12.0 H Lymphocytes # (Manual) Monocytes # (Manual) 0.9 H Eosinophils # (Manual) Nucleated RBC % 1.0 H Basophils # (Manual) APTT Heparin Anti-Xa Level ABG pH 7.451 H POC ABG pO2 ABG pO2 62.6 L ABG HCO3 33.2 H ABG O2 Saturation 93.8 L ABG Base Excess 8.3 H POC ABG pCO2 ABG Hemoglobin 8.3 L ABG Oxyhemoglobin Oxyhemoglobin 91.9 L Sodium Potassium Chloride 95.0 L Carbon Dioxide 33 H BUN 22 H Creatinine 0.6 L Glucose 150 H POC Glucose Lactic Acid Calcium Phosphorus Magnesium AST ALT Lactate Dehydrogenase CK-MB (CK-2) C-Reactive Protein NT-Pro-B Natriuret Pep Total Protein 6.2 L Albumin 2.4 L Urine WBC (Auto) 12/19/19 12/19/19 12/20/19 11:56 18:17 00:09 WBC RBC Hgb Hct MCHC RDW MCH Lymph % (Auto) [place] % (Auto) [place] # Eos # Lymph # (Auto) [place] # (Auto) Eos # (Auto) Seg Neutrophils % Seg Neuts % (Manual) Baso # (Auto) Lymphocytes % (Manual) Monocytes % (Manual) Eosinophils % (Manual) Basophils % (Manual) Seg Neutrophils # Seg Neutrophils # Man Lymphocytes # (Manual) Monocytes # (Manual) Eosinophils # (Manual) Nucleated RBC % Basophils # (Manual) APTT Heparin Anti-Xa Level ABG pH POC ABG pO2 ABG pO2 ABG HCO3 ABG O2 Saturation ABG Base Excess POC ABG pCO2 ABG Hemoglobin ABG Oxyhemoglobin Oxyhemoglobin Sodium Potassium Chloride Carbon Dioxide BUN Creatinine Glucose POC Glucose 156 H 156 H 155 H Lactic Acid Calcium Phosphorus Magnesium AST ALT Lactate Dehydrogenase CK-MB (CK-2) C-Reactive Protein NT-Pro-B Natriuret Pep Total Protein Albumin Urine WBC (Auto) 12/20/19 12/20/19 12/20/19 05:26 06:02 18:17 WBC RBC Hgb Hct MCHC RDW MCH Lymph % (Auto) [place] % (Auto) [place] # Eos # Lymph # (Auto) [place] # (Auto) Eos # (Auto) Seg Neutrophils % Seg Neuts % (Manual) Baso # (Auto) Lymphocytes % (Manual) Monocytes % (Manual) Eosinophils % (Manual) Basophils % (Manual) Seg Neutrophils # Seg Neutrophils # Man Lymphocytes # (Manual) Monocytes # (Manual) Eosinophils # (Manual) Nucleated RBC % Basophils # (Manual) APTT Heparin Anti-Xa Level 0.19 L ABG pH POC ABG pO2 ABG pO2 ABG HCO3 ABG O2 Saturation ABG Base Excess POC ABG pCO2 ABG Hemoglobin ABG Oxyhemoglobin Oxyhemoglobin Sodium Potassium Chloride Carbon Dioxide BUN Creatinine Glucose POC Glucose 137 H 128 H Lactic Acid Calcium Phosphorus Magnesium AST ALT Lactate Dehydrogenase CK-MB (CK-2) C-Reactive Protein NT-Pro-B Natriuret Pep Total Protein Albumin Urine WBC (Auto) 12/20/19 12/21/19 12/21/19 23:34 05:31 05:31 WBC 12.7 H RBC 3.09 L Hgb 8.9 L Hct 27.4 L MCHC RDW 15.8 H MCH Lymph % (Auto) 12.1 L [place] % (Auto) 7.8 H [place] # Eos # Lymph # (Auto) [place] # (Auto) 1.0 H Eos # (Auto) Seg Neutrophils % 77.1 H Seg Neuts % (Manual) Baso # (Auto) Lymphocytes % (Manual) Monocytes % (Manual) Eosinophils % (Manual) Basophils % (Manual) Seg Neutrophils # 9.8 H Seg Neutrophils # Man Lymphocytes # (Manual) Monocytes # (Manual) Eosinophils # (Manual) Nucleated RBC % Basophils # (Manual) APTT Heparin Anti-Xa Level ABG pH POC ABG pO2 ABG pO2 ABG HCO3 ABG O2 Saturation ABG Base Excess POC ABG pCO2 ABG Hemoglobin ABG Oxyhemoglobin Oxyhemoglobin Sodium Potassium Chloride 96.9 L Carbon Dioxide 37 H BUN 27 H Creatinine 0.7 L Glucose 140 H POC Glucose 145 H Lactic Acid Calcium Phosphorus Magnesium AST ALT Lactate Dehydrogenase CK-MB (CK-2) C-Reactive Protein NT-Pro-B Natriuret Pep Total Protein Albumin Urine WBC (Auto) 12/21/19 12/21/19 12/21/19 05:38 10:13 11:51 WBC RBC Hgb Hct MCHC RDW MCH Lymph % (Auto) [place] % (Auto) [place] # Eos # Lymph # (Auto) [place] # (Auto) Eos # (Auto) Seg Neutrophils % Seg Neuts % (Manual) Baso # (Auto) Lymphocytes % (Manual) Monocytes % (Manual) Eosinophils % (Manual) Basophils % (Manual) Seg Neutrophils # Seg Neutrophils # Man Lymphocytes # (Manual) Monocytes # (Manual) Eosinophils # (Manual) Nucleated RBC % Basophils # (Manual) APTT 23.9 L Heparin Anti-Xa Level < 0.10 L ABG pH POC ABG pO2 ABG pO2 ABG HCO3 ABG O2 Saturation ABG Base Excess POC ABG pCO2 ABG Hemoglobin ABG Oxyhemoglobin Oxyhemoglobin Sodium Potassium Chloride Carbon Dioxide BUN Creatinine Glucose POC Glucose 151 H 145 H Lactic Acid Calcium Phosphorus Magnesium AST ALT Lactate Dehydrogenase CK-MB (CK-2) C-Reactive Protein NT-Pro-B Natriuret Pep Total Protein Albumin Urine WBC (Auto) 12/21/19 12/22/19 12/22/19 17:16 00:01 01:33 WBC RBC Hgb Hct MCHC RDW MCH Lymph % (Auto) [place] % (Auto) [place] # Eos # Lymph # (Auto) [place] # (Auto) Eos # (Auto) Seg Neutrophils % Seg Neuts % (Manual) Baso # (Auto) Lymphocytes % (Manual) Monocytes % (Manual) Eosinophils % (Manual) Basophils % (Manual) Seg Neutrophils # Seg Neutrophils # Man Lymphocytes # (Manual) Monocytes # (Manual) Eosinophils # (Manual) Nucleated RBC % Basophils # (Manual) APTT Heparin Anti-Xa Level 0.10 L ABG pH POC ABG pO2 ABG pO2 ABG HCO3 ABG O2 Saturation ABG Base Excess POC ABG pCO2 ABG Hemoglobin ABG Oxyhemoglobin Oxyhemoglobin Sodium Potassium Chloride Carbon Dioxide BUN Creatinine Glucose POC Glucose 167 H 179 H Lactic Acid Calcium Phosphorus Magnesium AST ALT Lactate Dehydrogenase CK-MB (CK-2) C-Reactive Protein NT-Pro-B Natriuret Pep Total Protein Albumin Urine WBC (Auto) 12/22/19 12/22/19 12/22/19 03:22 05:10 05:10 WBC 13.8 H RBC 3.20 L Hgb 8.9 L Hct 28.1 L MCHC RDW 15.9 H MCH Lymph % (Auto) [place] % (Auto) [place] # Eos # Lymph # (Auto) [place] # (Auto) Eos # (Auto) Seg Neutrophils % Seg Neuts % (Manual) Baso # (Auto) Lymphocytes % (Manual) Monocytes % (Manual) Eosinophils % (Manual) Basophils % (Manual) Seg Neutrophils # Seg Neutrophils # Man Lymphocytes # (Manual) Monocytes # (Manual) Eosinophils # (Manual) Nucleated RBC % Basophils # (Manual) APTT Heparin Anti-Xa Level ABG pH POC ABG pO2 52.3 L ABG pO2 ABG HCO3 ABG O2 Saturation ABG Base Excess POC ABG pCO2 52.9 H ABG Hemoglobin 10.7 L ABG Oxyhemoglobin 84 L Oxyhemoglobin Sodium Potassium Chloride 96.6 L Carbon Dioxide BUN 25 H Creatinine 0.7 L Glucose 129 H POC Glucose Lactic Acid Calcium Phosphorus Magnesium AST ALT Lactate Dehydrogenase CK-MB (CK-2) C-Reactive Protein NT-Pro-B Natriuret Pep Total Protein Albumin Urine WBC (Auto) 12/22/19 12/22/19 12/22/19 05:18 12:32 12:43 WBC RBC Hgb Hct MCHC RDW MCH Lymph % (Auto) [place] % (Auto) [place] # Eos # Lymph # (Auto) [place] # (Auto) Eos # (Auto) Seg Neutrophils % Seg Neuts % (Manual) Baso # (Auto) Lymphocytes % (Manual) Monocytes % (Manual) Eosinophils % (Manual) Basophils % (Manual) Seg Neutrophils # Seg Neutrophils # Man Lymphocytes # (Manual) Monocytes # (Manual) Eosinophils # (Manual) Nucleated RBC % Basophils # (Manual) APTT Heparin Anti-Xa Level 0.18 L ABG pH POC ABG pO2 ABG pO2 ABG HCO3 ABG O2 Saturation ABG Base Excess POC ABG pCO2 ABG Hemoglobin ABG Oxyhemoglobin Oxyhemoglobin Sodium Potassium Chloride Carbon Dioxide BUN Creatinine Glucose POC Glucose 131 H 208 H Lactic Acid Calcium Phosphorus Magnesium AST ALT Lactate Dehydrogenase CK-MB (CK-2) C-Reactive Protein NT-Pro-B Natriuret Pep Total Protein Albumin Urine WBC (Auto) 12/22/19 12/22/19 12/23/19 17:44 23:20 03:51 WBC 15.2 H RBC 3.43 L Hgb 9.6 L Hct 30.3 L MCHC RDW 15.9 H MCH Lymph % (Auto) [place] % (Auto) [place] # Eos # Lymph # (Auto) [place] # (Auto) Eos # (Auto) Seg Neutrophils % Seg Neuts % (Manual) Baso # (Auto) Lymphocytes % (Manual) Monocytes % (Manual) Eosinophils % (Manual) Basophils % (Manual) Seg Neutrophils # Seg Neutrophils # Man Lymphocytes # (Manual) Monocytes # (Manual) Eosinophils # (Manual) Nucleated RBC % Basophils # (Manual) APTT Heparin Anti-Xa Level ABG pH POC ABG pO2 ABG pO2 ABG HCO3 ABG O2 Saturation ABG Base Excess POC ABG pCO2 ABG Hemoglobin ABG Oxyhemoglobin Oxyhemoglobin Sodium Potassium Chloride Carbon Dioxide BUN Creatinine Glucose POC Glucose 209 H 119 H Lactic Acid Calcium Phosphorus Magnesium AST ALT Lactate Dehydrogenase CK-MB (CK-2) C-Reactive Protein NT-Pro-B Natriuret Pep Total Protein Albumin Urine WBC (Auto) 12/23/19 12/23/19 12/23/19 03:51 05:31 12:09 WBC RBC Hgb Hct MCHC RDW MCH Lymph % (Auto) [place] % (Auto) [place] # Eos # Lymph # (Auto) [place] # (Auto) Eos # (Auto) Seg Neutrophils % Seg Neuts % (Manual) Baso # (Auto) Lymphocytes % (Manual) Monocytes % (Manual) Eosinophils % (Manual) Basophils % (Manual) Seg Neutrophils # Seg Neutrophils # Man Lymphocytes # (Manual) Monocytes # (Manual) Eosinophils # (Manual) Nucleated RBC % Basophils # (Manual) APTT Heparin Anti-Xa Level ABG pH POC ABG pO2 ABG pO2 ABG HCO3 ABG O2 Saturation ABG Base Excess POC ABG pCO2 ABG Hemoglobin ABG Oxyhemoglobin Oxyhemoglobin Sodium Potassium Chloride 97.2 L Carbon Dioxide 31 H BUN 23 H Creatinine 0.6 L Glucose 153 H POC Glucose 149 H 144 H Lactic Acid Calcium Phosphorus Magnesium AST ALT Lactate Dehydrogenase CK-MB (CK-2) C-Reactive Protein NT-Pro-B Natriuret Pep Total Protein Albumin Urine WBC (Auto) 12/23/19 12/23/19 12/23/19 15:30 17:49 23:31 WBC RBC Hgb Hct MCHC RDW MCH Lymph % (Auto) [place] % (Auto) [place] # Eos # Lymph # (Auto) [place] # (Auto) Eos # (Auto) Seg Neutrophils % Seg Neuts % (Manual) Baso # (Auto) Lymphocytes % (Manual) Monocytes % (Manual) Eosinophils % (Manual) Basophils % (Manual) Seg Neutrophils # Seg Neutrophils # Man Lymphocytes # (Manual) Monocytes # (Manual) Eosinophils # (Manual) Nucleated RBC % Basophils # (Manual) APTT Heparin Anti-Xa Level 0.21 L ABG pH POC ABG pO2 ABG pO2 ABG HCO3 ABG O2 Saturation ABG Base Excess POC ABG pCO2 ABG Hemoglobin ABG Oxyhemoglobin Oxyhemoglobin Sodium Potassium Chloride Carbon Dioxide BUN Creatinine Glucose POC Glucose 192 H 151 H Lactic Acid Calcium Phosphorus Magnesium AST ALT Lactate Dehydrogenase CK-MB (CK-2) C-Reactive Protein NT-Pro-B Natriuret Pep Total Protein Albumin Urine WBC (Auto) 12/24/19 12/24/19 12/24/19 05:34 12:13 16:50 WBC RBC Hgb Hct MCHC RDW MCH Lymph % (Auto) [place] % (Auto) [place] # Eos # Lymph # (Auto) [place] # (Auto) Eos # (Auto) Seg Neutrophils % Seg Neuts % (Manual) Baso # (Auto) Lymphocytes % (Manual) Monocytes % (Manual) Eosinophils % (Manual) Basophils % (Manual) Seg Neutrophils # Seg Neutrophils # Man Lymphocytes # (Manual) Monocytes # (Manual) Eosinophils # (Manual) Nucleated RBC % Basophils # (Manual) APTT Heparin Anti-Xa Level 0.16 L ABG pH POC ABG pO2 ABG pO2 ABG HCO3 ABG O2 Saturation ABG Base Excess POC ABG pCO2 ABG Hemoglobin ABG Oxyhemoglobin Oxyhemoglobin Sodium Potassium Chloride Carbon Dioxide BUN Creatinine Glucose POC Glucose 145 H 124 H Lactic Acid Calcium Phosphorus Magnesium AST ALT Lactate Dehydrogenase CK-MB (CK-2) C-Reactive Protein NT-Pro-B Natriuret Pep Total Protein Albumin Urine WBC (Auto) 12/24/19 12/25/19 12/25/19 17:53 00:14 04:18 WBC 12.9 H RBC 3.30 L Hgb 9.1 L Hct 28.8 L MCHC RDW 16.4 H MCH Lymph % (Auto) [place] % (Auto) 7.8 H [place] # Eos # Lymph # (Auto) [place] # (Auto) 1.0 H Eos # (Auto) Seg Neutrophils % 75.5 H Seg Neuts % (Manual) Baso # (Auto) Lymphocytes % (Manual) Monocytes % (Manual) Eosinophils % (Manual) Basophils % (Manual) Seg Neutrophils # 9.7 H Seg Neutrophils # Man Lymphocytes # (Manual) Monocytes # (Manual) Eosinophils # (Manual) Nucleated RBC % Basophils # (Manual) APTT Heparin Anti-Xa Level ABG pH POC ABG pO2 ABG pO2 ABG HCO3 ABG O2 Saturation ABG Base Excess POC ABG pCO2 ABG Hemoglobin ABG Oxyhemoglobin Oxyhemoglobin Sodium Potassium Chloride Carbon Dioxide BUN Creatinine Glucose POC Glucose 164 H 148 H Lactic Acid Calcium Phosphorus Magnesium AST ALT Lactate Dehydrogenase CK-MB (CK-2) C-Reactive Protein NT-Pro-B Natriuret Pep Total Protein Albumin Urine WBC (Auto) 12/25/19 12/25/19 12/25/19 04:18 05:38 11:44 WBC RBC Hgb Hct MCHC RDW MCH Lymph % (Auto) [place] % (Auto) [place] # Eos # Lymph # (Auto) [place] # (Auto) Eos # (Auto) Seg Neutrophils % Seg Neuts % (Manual) Baso # (Auto) Lymphocytes % (Manual) Monocytes % (Manual) Eosinophils % (Manual) Basophils % (Manual) Seg Neutrophils # Seg Neutrophils # Man Lymphocytes # (Manual) Monocytes # (Manual) Eosinophils # (Manual) Nucleated RBC % Basophils # (Manual) APTT Heparin Anti-Xa Level ABG pH POC ABG pO2 ABG pO2 ABG HCO3 ABG O2 Saturation ABG Base Excess POC ABG pCO2 ABG Hemoglobin ABG Oxyhemoglobin Oxyhemoglobin Sodium Potassium Chloride Carbon Dioxide 33 H BUN 27 H Creatinine 0.6 L Glucose 132 H POC Glucose 152 H 166 H Lactic Acid Calcium Phosphorus Magnesium AST ALT Lactate Dehydrogenase CK-MB (CK-2) C-Reactive Protein NT-Pro-B Natriuret Pep Total Protein Albumin Urine WBC (Auto) 12/25/19 12/26/19 12/26/19 18:29 00:17 00:18 WBC RBC Hgb Hct MCHC RDW MCH Lymph % (Auto) [place] % (Auto) [place] # Eos # Lymph # (Auto) [place] # (Auto) Eos # (Auto) Seg Neutrophils % Seg Neuts % (Manual) Baso # (Auto) Lymphocytes % (Manual) Monocytes % (Manual) Eosinophils % (Manual) Basophils % (Manual) Seg Neutrophils # Seg Neutrophils # Man Lymphocytes # (Manual) Monocytes # (Manual) Eosinophils # (Manual) Nucleated RBC % Basophils # (Manual) APTT Heparin Anti-Xa Level ABG pH POC ABG pO2 ABG pO2 ABG HCO3 ABG O2 Saturation ABG Base Excess POC ABG pCO2 ABG Hemoglobin ABG Oxyhemoglobin Oxyhemoglobin Sodium Potassium Chloride 97.8 L Carbon Dioxide BUN 25 H Creatinine 0.6 L Glucose 140 H POC Glucose 194 H 151 H Lactic Acid Calcium Phosphorus Magnesium AST ALT Lactate Dehydrogenase CK-MB (CK-2) C-Reactive Protein NT-Pro-B Natriuret Pep Total Protein Albumin Urine WBC (Auto) 12/26/19 12/26/19 12/26/19 05:36 11:41 17:50 WBC RBC Hgb Hct MCHC RDW MCH Lymph % (Auto) [place] % (Auto) [place] # Eos # Lymph # (Auto) [place] # (Auto) Eos # (Auto) Seg Neutrophils % Seg Neuts % (Manual) Baso # (Auto) Lymphocytes % (Manual) Monocytes % (Manual) Eosinophils % (Manual) Basophils % (Manual) Seg Neutrophils # Seg Neutrophils # Man Lymphocytes # (Manual) Monocytes # (Manual) Eosinophils # (Manual) Nucleated RBC % Basophils # (Manual) APTT Heparin Anti-Xa Level ABG pH POC ABG pO2 ABG pO2 ABG HCO3 ABG O2 Saturation ABG Base Excess POC ABG pCO2 ABG Hemoglobin ABG Oxyhemoglobin Oxyhemoglobin Sodium Potassium Chloride Carbon Dioxide BUN Creatinine Glucose POC Glucose 156 H 148 H 139 H Lactic Acid Calcium Phosphorus Magnesium AST ALT Lactate Dehydrogenase CK-MB (CK-2) C-Reactive Protein NT-Pro-B Natriuret Pep Total Protein Albumin Urine WBC (Auto) 12/26/19 12/27/19 12/27/19 23:19 05:34 12:02 WBC RBC Hgb Hct MCHC RDW MCH Lymph % (Auto) [place] % (Auto) [place] # Eos # Lymph # (Auto) [place] # (Auto) Eos # (Auto) Seg Neutrophils % Seg Neuts % (Manual) Baso # (Auto) Lymphocytes % (Manual) Monocytes % (Manual) Eosinophils % (Manual) Basophils % (Manual) Seg Neutrophils # Seg Neutrophils # Man Lymphocytes # (Manual) Monocytes # (Manual) Eosinophils # (Manual) Nucleated RBC % Basophils # (Manual) APTT Heparin Anti-Xa Level ABG pH POC ABG pO2 ABG pO2 ABG HCO3 ABG O2 Saturation ABG Base Excess POC ABG pCO2 ABG Hemoglobin ABG Oxyhemoglobin Oxyhemoglobin Sodium Potassium Chloride Carbon Dioxide BUN Creatinine Glucose POC Glucose 161 H 145 H 157 H Lactic Acid Calcium Phosphorus Magnesium AST ALT Lactate Dehydrogenase CK-MB (CK-2) C-Reactive Protein NT-Pro-B Natriuret Pep Total Protein Albumin Urine WBC (Auto) 12/27/19 12/27/19 12/27/19 17:35 20:11 23:00 WBC RBC Hgb Hct MCHC RDW MCH Lymph % (Auto) [place] % (Auto) [place] # Eos # Lymph # (Auto) [place] # (Auto) Eos # (Auto) Seg Neutrophils % Seg Neuts % (Manual) Baso # (Auto) Lymphocytes % (Manual) Monocytes % (Manual) Eosinophils % (Manual) Basophils % (Manual) Seg Neutrophils # Seg Neutrophils # Man Lymphocytes # (Manual) Monocytes # (Manual) Eosinophils # (Manual) Nucleated RBC % Basophils # (Manual) APTT Heparin Anti-Xa Level 0.19 L ABG pH POC ABG pO2 ABG pO2 ABG HCO3 ABG O2 Saturation ABG Base Excess POC ABG pCO2 ABG Hemoglobin ABG Oxyhemoglobin Oxyhemoglobin Sodium Potassium Chloride Carbon Dioxide BUN Creatinine Glucose POC Glucose 158 H 155 H Lactic Acid Calcium Phosphorus Magnesium AST ALT Lactate Dehydrogenase CK-MB (CK-2) C-Reactive Protein NT-Pro-B Natriuret Pep Total Protein Albumin Urine WBC (Auto) 12/27/19 12/28/19 12/28/19 23:45 02:41 02:41 WBC 13.0 H RBC 3.48 L Hgb 9.5 L Hct 30.6 L MCHC 31 L RDW 16.6 H MCH 27 L Lymph % (Auto) 13.0 L [place] % (Auto) 8.0 H [place] # Eos # Lymph # (Auto) [place] # (Auto) 1.0 H Eos # (Auto) Seg Neutrophils % 76.3 H Seg Neuts % (Manual) Baso # (Auto) Lymphocytes % (Manual) Monocytes % (Manual) Eosinophils % (Manual) Basophils % (Manual) Seg Neutrophils # 9.9 H Seg Neutrophils # Man Lymphocytes # (Manual) Monocytes # (Manual) Eosinophils # (Manual) Nucleated RBC % Basophils # (Manual) APTT Heparin Anti-Xa Level ABG pH POC ABG pO2 ABG pO2 ABG HCO3 ABG O2 Saturation ABG Base Excess POC ABG pCO2 ABG Hemoglobin ABG Oxyhemoglobin Oxyhemoglobin Sodium Potassium Chloride Carbon Dioxide BUN 22 H Creatinine 0.6 L Glucose 101 H POC Glucose 130 H Lactic Acid Calcium Phosphorus Magnesium AST ALT Lactate Dehydrogenase CK-MB (CK-2) C-Reactive Protein NT-Pro-B Natriuret Pep Total Protein Albumin Urine WBC (Auto) 12/28/19 12/28/19 12/28/19 06:00 12:34 18:13 WBC RBC Hgb Hct MCHC RDW MCH Lymph % (Auto) [place] % (Auto) [place] # Eos # Lymph # (Auto) [place] # (Auto) Eos # (Auto) Seg Neutrophils % Seg Neuts % (Manual) Baso # (Auto) Lymphocytes % (Manual) Monocytes % (Manual) Eosinophils % (Manual) Basophils % (Manual) Seg Neutrophils # Seg Neutrophils # Man Lymphocytes # (Manual) Monocytes # (Manual) Eosinophils # (Manual) Nucleated RBC % Basophils # (Manual) APTT Heparin Anti-Xa Level ABG pH POC ABG pO2 ABG pO2 ABG HCO3 ABG O2 Saturation ABG Base Excess POC ABG pCO2 ABG Hemoglobin ABG Oxyhemoglobin Oxyhemoglobin Sodium Potassium Chloride Carbon Dioxide BUN Creatinine Glucose POC Glucose 150 H 161 H 128 H Lactic Acid Calcium Phosphorus Magnesium AST ALT Lactate Dehydrogenase CK-MB (CK-2) C-Reactive Protein NT-Pro-B Natriuret Pep Total Protein Albumin Urine WBC (Auto) 12/28/19 12/29/19 12/29/19 23:36 05:21 11:40 WBC RBC Hgb Hct MCHC RDW MCH Lymph % (Auto) [place] % (Auto) [place] # Eos # Lymph # (Auto) [place] # (Auto) Eos # (Auto) Seg Neutrophils % Seg Neuts % (Manual) Baso # (Auto) Lymphocytes % (Manual) Monocytes % (Manual) Eosinophils % (Manual) Basophils % (Manual) Seg Neutrophils # Seg Neutrophils # Man Lymphocytes # (Manual) Monocytes # (Manual) Eosinophils # (Manual) Nucleated RBC % Basophils # (Manual) APTT Heparin Anti-Xa Level ABG pH POC ABG pO2 ABG pO2 ABG HCO3 ABG O2 Saturation ABG Base Excess POC ABG pCO2 ABG Hemoglobin ABG Oxyhemoglobin Oxyhemoglobin Sodium Potassium Chloride Carbon Dioxide BUN Creatinine Glucose POC Glucose 137 H 136 H 166 H Lactic Acid Calcium Phosphorus Magnesium AST ALT Lactate Dehydrogenase CK-MB (CK-2) C-Reactive Protein NT-Pro-B Natriuret Pep Total Protein Albumin Urine WBC (Auto) 12/29/19 12/29/19 12/29/19 17:23 19:21 23:38 WBC RBC Hgb Hct MCHC RDW MCH Lymph % (Auto) [place] % (Auto) [place] # Eos # Lymph # (Auto) [place] # (Auto) Eos # (Auto) Seg Neutrophils % Seg Neuts % (Manual) Baso # (Auto) Lymphocytes % (Manual) Monocytes % (Manual) Eosinophils % (Manual) Basophils % (Manual) Seg Neutrophils # Seg Neutrophils # Man Lymphocytes # (Manual) Monocytes # (Manual) Eosinophils # (Manual) Nucleated RBC % Basophils # (Manual) APTT Heparin Anti-Xa Level 0.20 L ABG pH POC ABG pO2 ABG pO2 ABG HCO3 ABG O2 Saturation ABG Base Excess POC ABG pCO2 ABG Hemoglobin ABG Oxyhemoglobin Oxyhemoglobin Sodium Potassium Chloride Carbon Dioxide BUN Creatinine Glucose POC Glucose 144 H 141 H Lactic Acid Calcium Phosphorus Magnesium AST ALT Lactate Dehydrogenase CK-MB (CK-2) C-Reactive Protein NT-Pro-B Natriuret Pep Total Protein Albumin Urine WBC (Auto) 12/30/19 12/30/19 12/30/19 03:58 03:58 04:59 WBC RBC 3.54 L Hgb 9.8 L Hct 30.7 L MCHC RDW 16.8 H MCH Lymph % (Auto) [place] % (Auto) [place] # Eos # Lymph # (Auto) [place] # (Auto) Eos # (Auto) Seg Neutrophils % Seg Neuts % (Manual) Baso # (Auto) Lymphocytes % (Manual) Monocytes % (Manual) Eosinophils % (Manual) Basophils % (Manual) Seg Neutrophils # Seg Neutrophils # Man Lymphocytes # (Manual) Monocytes # (Manual) Eosinophils # (Manual) Nucleated RBC % Basophils # (Manual) APTT Heparin Anti-Xa Level ABG pH POC ABG pO2 ABG pO2 ABG HCO3 29.8 H ABG O2 Saturation ABG Base Excess 4.8 H POC ABG pCO2 ABG Hemoglobin 11.2 L ABG Oxyhemoglobin Oxyhemoglobin 93.8 L Sodium Potassium Chloride 97.8 L Carbon Dioxide BUN 26 H Creatinine Glucose 168 H POC Glucose Lactic Acid Calcium Phosphorus Magnesium AST ALT Lactate Dehydrogenase CK-MB (CK-2) C-Reactive Protein NT-Pro-B Natriuret Pep Total Protein Albumin Urine WBC (Auto) 12/30/19 12/30/19 12/30/19 05:45 11:34 17:28 WBC RBC Hgb Hct MCHC RDW MCH Lymph % (Auto) Dickey % (Auto) Dickey # Eos # Lymph # (Auto) D[place]key # (Auto) Eos # (Auto) Seg Neutrophils % Seg Neuts % (Manual) Baso # (Auto) Lymphocytes % (Manual) Monocytes % (Manual) Eosinophils % (Manual) Basophils % (Manual) Seg Neutrophils # Seg Neutrophils # Man Lymphocytes # (Manual) Monocytes # (Manual) Eosinophils # (Manual) Nucleated RBC % Basophils # (Manual) APTT Heparin Anti-Xa Level ABG pH POC ABG pO2 ABG pO2 ABG HCO3 ABG O2 Saturation ABG Base Excess POC ABG pCO2 ABG Hemoglobin ABG Oxyhemoglobin Oxyhemoglobin Sodium Potassium Chloride Carbon Dioxide BUN Creatinine Glucose POC Glucose 163 H 180 H 150 H Lactic Acid Calcium Phosphorus Magnesium AST ALT Lactate Dehydrogenase CK-MB (CK-2) C-Reactive Protein NT-Pro-B Natriuret Pep Total Protein Albumin Urine WBC (Auto) 12/30/19 12/31/19 12/31/19 23:43 04:55 05:07 WBC RBC Hgb Hct MCHC RDW MCH Lymph % (Auto) D[place]key % (Auto) Dickey # Eos # Lymph # (Auto) [place]key # (Auto) Eos # (Auto) Seg Neutrophils % Seg Neuts % (Manual) Baso # (Auto) Lymphocytes % (Manual) Monocytes % (Manual) Eosinophils % (Manual) Basophils % (Manual) Seg Neutrophils # Seg Neutrophils # Man Lymphocytes # (Manual) Monocytes # (Manual) Eosinophils # (Manual) Nucleated RBC % Basophils # (Manual) APTT Heparin Anti-Xa Level ABG pH POC ABG pO2 ABG pO2 ABG HCO3 ABG O2 Saturation ABG Base Excess POC ABG pCO2 ABG Hemoglobin ABG Oxyhemoglobin Oxyhemoglobin Sodium Potassium 5.6 H D Chloride Carbon Dioxide BUN 33 H Creatinine Glucose 131 H POC Glucose 142 H 134 H Lactic Acid Calcium Phosphorus Magnesium AST ALT Lactate Dehydrogenase CK-MB (CK-2) C-Reactive Protein NT-Pro-B Natriuret Pep Total Protein Albumin Urine WBC (Auto) 12/31/19 12/31/19 12/31/19 11:30 17:19 17:36 WBC RBC Hgb Hct MCHC RDW MCH Lymph % (Auto) [place] % (Auto) [place] # Eos # Lymph # (Auto) [place] # (Auto) Eos # (Auto) Seg Neutrophils % Seg Neuts % (Manual) Baso # (Auto) Lymphocytes % (Manual) Monocytes % (Manual) Eosinophils % (Manual) Basophils % (Manual) Seg Neutrophils # Seg Neutrophils # Man Lymphocytes # (Manual) Monocytes # (Manual) Eosinophils # (Manual) Nucleated RBC % Basophils # (Manual) APTT Heparin Anti-Xa Level ABG pH POC ABG pO2 ABG pO2 ABG HCO3 ABG O2 Saturation ABG Base Excess POC ABG pCO2 ABG Hemoglobin ABG Oxyhemoglobin Oxyhemoglobin Sodium Potassium Chloride Carbon Dioxide BUN 35 H Creatinine Glucose 156 H POC Glucose 158 H 181 H Lactic Acid Calcium Phosphorus Magnesium AST ALT Lactate Dehydrogenase CK-MB (CK-2) C-Reactive Protein NT-Pro-B Natriuret Pep Total Protein Albumin Urine WBC (Auto) 12/31/19 12/31/19 12/31/19 18:16 19:41 21:53 WBC RBC Hgb Hct MCHC RDW MCH Lymph % (Auto) [place] % (Auto) [place] # Eos # Lymph # (Auto) [place] # (Auto) Eos # (Auto) Seg Neutrophils % Seg Neuts % (Manual) Baso # (Auto) Lymphocytes % (Manual) Monocytes % (Manual) Eosinophils % (Manual) Basophils % (Manual) Seg Neutrophils # Seg Neutrophils # Man Lymphocytes # (Manual) Monocytes # (Manual) Eosinophils # (Manual) Nucleated RBC % Basophils # (Manual) APTT Heparin Anti-Xa Level 0.20 L ABG pH POC ABG pO2 ABG pO2 ABG HCO3 ABG O2 Saturation ABG Base Excess POC ABG pCO2 ABG Hemoglobin ABG Oxyhemoglobin Oxyhemoglobin Sodium Potassium Chloride Carbon Dioxide BUN 34 H Creatinine Glucose 169 H POC Glucose 141 H Lactic Acid Calcium Phosphorus Magnesium AST ALT Lactate Dehydrogenase CK-MB (CK-2) C-Reactive Protein NT-Pro-B Natriuret Pep Total Protein Albumin Urine WBC (Auto) 12/31/19 01/01/20 01/01/20 23:51 05:17 10:40 WBC RBC Hgb Hct MCHC RDW MCH Lymph % (Auto) [place] % (Auto) [place] # Eos # Lymph # (Auto) [place] # (Auto) Eos # (Auto) Seg Neutrophils % Seg Neuts % (Manual) Baso # (Auto) Lymphocytes % (Manual) Monocytes % (Manual) Eosinophils % (Manual) Basophils % (Manual) Seg Neutrophils # Seg Neutrophils # Man Lymphocytes # (Manual) Monocytes # (Manual) Eosinophils # (Manual) Nucleated RBC % Basophils # (Manual) APTT Heparin Anti-Xa Level ABG pH POC ABG pO2 ABG pO2 ABG HCO3 ABG O2 Saturation ABG Base Excess POC ABG pCO2 ABG Hemoglobin ABG Oxyhemoglobin Oxyhemoglobin Sodium Potassium Chloride Carbon Dioxide BUN 31 H Creatinine 0.7 L Glucose 137 H POC Glucose 131 H 155 H Lactic Acid Calcium Phosphorus Magnesium AST 73 H ALT 97 H Lactate Dehydrogenase CK-MB (CK-2) C-Reactive Protein NT-Pro-B Natriuret Pep 3866 H Total Protein Albumin 2.8 L Urine WBC (Auto) 01/01/20 01/01/20 01/01/20 12:26 15:33 17:53 WBC 14.3 H RBC 3.35 L Hgb 9.1 L Hct 28.8 L MCHC RDW 17.0 H MCH 27 L Lymph % (Auto) 7.0 L [place] % (Auto) 7.6 H [place] # Eos # Lymph # (Auto) 1.0 L [place] # (Auto) 1.1 H Eos # (Auto) Seg Neutrophils % 83.3 H Seg Neuts % (Manual) Baso # (Auto) Lymphocytes % (Manual) Monocytes % (Manual) Eosinophils % (Manual) Basophils % (Manual) Seg Neutrophils # 12.0 H Seg Neutrophils # Man Lymphocytes # (Manual) Monocytes # (Manual) Eosinophils # (Manual) Nucleated RBC % Basophils # (Manual) APTT Heparin Anti-Xa Level ABG pH POC ABG pO2 ABG pO2 ABG HCO3 ABG O2 Saturation ABG Base Excess POC ABG pCO2 ABG Hemoglobin ABG Oxyhemoglobin Oxyhemoglobin Sodium Potassium Chloride Carbon Dioxide BUN Creatinine Glucose POC Glucose 128 H 128 H Lactic Acid Calcium Phosphorus Magnesium AST ALT Lactate Dehydrogenase CK-MB (CK-2) C-Reactive Protein NT-Pro-B Natriuret Pep Total Protein Albumin Urine WBC (Auto) 01/01/20 01/02/20 01/02/20 23:04 05:39 07:00 WBC RBC Hgb Hct MCHC RDW MCH Lymph % (Auto) [place] % (Auto) [place] # Eos # Lymph # (Auto) [place] # (Auto) Eos # (Auto) Seg Neutrophils % Seg Neuts % (Manual) Baso # (Auto) Lymphocytes % (Manual) Monocytes % (Manual) Eosinophils % (Manual) Basophils % (Manual) Seg Neutrophils # Seg Neutrophils # Man Lymphocytes # (Manual) Monocytes # (Manual) Eosinophils # (Manual) Nucleated RBC % Basophils # (Manual) APTT Heparin Anti-Xa Level 0.13 L ABG pH POC ABG pO2 ABG pO2 ABG HCO3 ABG O2 Saturation ABG Base Excess POC ABG pCO2 ABG Hemoglobin ABG Oxyhemoglobin Oxyhemoglobin Sodium Potassium Chloride Carbon Dioxide BUN Creatinine Glucose POC Glucose 120 H 169 H Lactic Acid Calcium Phosphorus Magnesium AST ALT Lactate Dehydrogenase CK-MB (CK-2) C-Reactive Protein NT-Pro-B Natriuret Pep Total Protein Albumin Urine WBC (Auto) 01/02/20 01/02/20 01/02/20 12:15 14:06 17:58 WBC RBC Hgb Hct MCHC RDW MCH Lymph % (Auto) [place] % (Auto) [place] # Eos # Lymph # (Auto) [place] # (Auto) Eos # (Auto) Seg Neutrophils % Seg Neuts % (Manual) Baso # (Auto) Lymphocytes % (Manual) Monocytes % (Manual) Eosinophils % (Manual) Basophils % (Manual) Seg Neutrophils # Seg Neutrophils # Man Lymphocytes # (Manual) Monocytes # (Manual) Eosinophils # (Manual) Nucleated RBC % Basophils # (Manual) APTT Heparin Anti-Xa Level < 0.10 L ABG pH POC ABG pO2 ABG pO2 ABG HCO3 ABG O2 Saturation ABG Base Excess POC ABG pCO2 ABG Hemoglobin ABG Oxyhemoglobin Oxyhemoglobin Sodium Potassium Chloride Carbon Dioxide BUN Creatinine Glucose POC Glucose 190 H 198 H Lactic Acid Calcium Phosphorus Magnesium AST ALT Lactate Dehydrogenase CK-MB (CK-2) C-Reactive Protein NT-Pro-B Natriuret Pep Total Protein Albumin Urine WBC (Auto) 01/02/20 01/02/20 01/03/20 21:43 23:33 05:42 WBC RBC Hgb Hct MCHC RDW MCH Lymph % (Auto) [place] % (Auto) [place] # Eos # Lymph # (Auto) [place] # (Auto) Eos # (Auto) Seg Neutrophils % Seg Neuts % (Manual) Baso # (Auto) Lymphocytes % (Manual) Monocytes % (Manual) Eosinophils % (Manual) Basophils % (Manual) Seg Neutrophils # Seg Neutrophils # Man Lymphocytes # (Manual) Monocytes # (Manual) Eosinophils # (Manual) Nucleated RBC % Basophils # (Manual) APTT Heparin Anti-Xa Level 0.10 L ABG pH POC ABG pO2 ABG pO2 ABG HCO3 ABG O2 Saturation ABG Base Excess POC ABG pCO2 ABG Hemoglobin ABG Oxyhemoglobin Oxyhemoglobin Sodium Potassium Chloride Carbon Dioxide BUN Creatinine Glucose POC Glucose 180 H 163 H Lactic Acid Calcium Phosphorus Magnesium AST ALT Lactate Dehydrogenase CK-MB (CK-2) C-Reactive Protein NT-Pro-B Natriuret Pep Total Protein Albumin Urine WBC (Auto) 01/03/20 01/03/20 01/03/20 06:50 07:25 07:45 WBC 12.1 H RBC 3.35 L Hgb 9.0 L Hct 28.9 L MCHC 31 L RDW 16.6 H MCH 27 L Lymph % (Auto) 13.0 L [place] % (Auto) 8.6 H [place] # Eos # Lymph # (Auto) [place] # (Auto) 1.0 H Eos # (Auto) Seg Neutrophils % 75.9 H Seg Neuts % (Manual) Baso # (Auto) Lymphocytes % (Manual) Monocytes % (Manual) Eosinophils % (Manual) Basophils % (Manual) Seg Neutrophils # 9.2 H Seg Neutrophils # Man Lymphocytes # (Manual) Monocytes # (Manual) Eosinophils # (Manual) Nucleated RBC % Basophils # (Manual) APTT Heparin Anti-Xa Level 0.29 L ABG pH POC ABG pO2 ABG pO2 ABG HCO3 ABG O2 Saturation ABG Base Excess POC ABG pCO2 ABG Hemoglobin ABG Oxyhemoglobin Oxyhemoglobin Sodium Potassium 3.3 L D Chloride Carbon Dioxide 35 H D BUN 23 H Creatinine 0.6 L Glucose 149 H POC Glucose Lactic Acid Calcium Phosphorus Magnesium AST ALT 88 H Lactate Dehydrogenase CK-MB (CK-2) C-Reactive Protein NT-Pro-B Natriuret Pep Total Protein 6.2 L Albumin 2.9 L Urine WBC (Auto) 01/03/20 01/03/20 01/03/20 12:05 17:42 18:30 WBC RBC Hgb Hct MCHC RDW MCH Lymph % (Auto) [place] % (Auto) [place] # Eos # Lymph # (Auto) [place] # (Auto) Eos # (Auto) Seg Neutrophils % Seg Neuts % (Manual) Baso # (Auto) Lymphocytes % (Manual) Monocytes % (Manual) Eosinophils % (Manual) Basophils % (Manual) Seg Neutrophils # Seg Neutrophils # Man Lymphocytes # (Manual) Monocytes # (Manual) Eosinophils # (Manual) Nucleated RBC % Basophils # (Manual) APTT Heparin Anti-Xa Level ABG pH POC ABG pO2 ABG pO2 70.7 L ABG HCO3 36.1 H ABG O2 Saturation 94.4 L ABG Base Excess 10.0 H POC ABG pCO2 ABG Hemoglobin 9.7 L ABG Oxyhemoglobin Oxyhemoglobin 91.8 L Sodium Potassium Chloride Carbon Dioxide BUN Creatinine Glucose POC Glucose 128 H 132 H Lactic Acid Calcium Phosphorus Magnesium AST ALT Lactate Dehydrogenase CK-MB (CK-2) C-Reactive Protein NT-Pro-B Natriuret Pep Total Protein Albumin Urine WBC (Auto) 01/04/20 01/04/20 01/04/20 00:10 04:26 05:23 WBC RBC Hgb Hct MCHC RDW MCH Lymph % (Auto) [place] % (Auto) [place] # Eos # Lymph # (Auto) [place] # (Auto) Eos # (Auto) Seg Neutrophils % Seg Neuts % (Manual) Baso # (Auto) Lymphocytes % (Manual) Monocytes % (Manual) Eosinophils % (Manual) Basophils % (Manual) Seg Neutrophils # Seg Neutrophils # Man Lymphocytes # (Manual) Monocytes # (Manual) Eosinophils # (Manual) Nucleated RBC % Basophils # (Manual) APTT Heparin Anti-Xa Level 0.16 L ABG pH POC ABG pO2 ABG pO2 ABG HCO3 ABG O2 Saturation ABG Base Excess POC ABG pCO2 ABG Hemoglobin ABG Oxyhemoglobin Oxyhemoglobin Sodium Potassium Chloride Carbon Dioxide BUN Creatinine Glucose POC Glucose 121 H 119 H Lactic Acid Calcium Phosphorus Magnesium AST ALT Lactate Dehydrogenase CK-MB (CK-2) C-Reactive Protein NT-Pro-B Natriuret Pep Total Protein Albumin Urine WBC (Auto) 01/04/20 01/04/20 01/04/20 09:50 09:50 12:18 WBC 15.4 H RBC 3.30 L Hgb 8.7 L Hct 28.2 L MCHC 31 L RDW 17.0 H MCH 26 L Lymph % (Auto) [place] % (Auto) 7.6 H [place] # Eos # Lymph # (Auto) [place] # (Auto) 1.2 H Eos # (Auto) Seg Neutrophils % 75.4 H Seg Neuts % (Manual) Baso # (Auto) Lymphocytes % (Manual) Monocytes % (Manual) Eosinophils % (Manual) Basophils % (Manual) Seg Neutrophils # 11.6 H Seg Neutrophils # Man Lymphocytes # (Manual) Monocytes # (Manual) Eosinophils # (Manual) Nucleated RBC % Basophils # (Manual) APTT Heparin Anti-Xa Level ABG pH POC ABG pO2 ABG pO2 ABG HCO3 ABG O2 Saturation ABG Base Excess POC ABG pCO2 ABG Hemoglobin ABG Oxyhemoglobin Oxyhemoglobin Sodium 148 H Potassium 3.5 L Chloride Carbon Dioxide 32 H BUN Creatinine 0.6 L Glucose 114 H POC Glucose 111 H Lactic Acid Calcium Phosphorus Magnesium AST ALT 59 H Lactate Dehydrogenase CK-MB (CK-2) C-Reactive Protein NT-Pro-B Natriuret Pep Total Protein Albumin 2.6 L Urine WBC (Auto) Allied health notes reviewed: RT
--- NOTE | 2020-01-04 13:52 | Progress Note ---
Assessment and Plan Assessment and plan: -Acute LLL PE -Acute RLE DVT -Persistent fevers; secondary to sepsis and acute PE/DVT -Severe sepsis; secondary to bilateral pneumonia, persistent fevers -Acute hypoxemic respiratory failure, on vent unable to wean -Bilateral pneumonia, community acquired, -Aspiration Pneumonia -Sustained SVT, on amiodarone -Acute on chronic systolic congestive heart failure -History of cerebrovascular accident. -Tobacco use disorder -Alcohol abuse with DT -Acute chronic obstructive pulmonary disease exacerbation. -Hypertension and hypertensive urgency at presentation. -History of arthritis. -Paroxysmal atrial fibrillation -Leukocytosis with possible sepsis. -Lactic acidosis. -Bleeding from ET tube -Oropharyngeal dysphagia -S/P Knee surgery -History of peptic Ulcer Surgery -DVT prophylaxis COVID-19 test; 11/24/2019; negative 11/26/2019; negative Plan Continue ventilatory support - Now s/p trach and PEG Aspiration precautions Continue to adjust amiodarone and metoprolol for suppression of paroxysmal atrial fibrillation. Continue anticoagulation Started on vancomycin and zosyn BC 03/28 - coag negative staph ?contaminant. Sputum cultures pending. Low-dose Lasix as needed DVT/GI prophy Heparin/Protonix Plan of care reviewed with the patient's nurse Closely monitor the patient and adjust management as needed The high probability of a clinically significant, sudden or life threatening deterioration of the [Respiratory, cardiovascular & neurological] system(s) required my full and direct attention, intervention and personal management. The aggregate critical care time was [33] minutes without overlap. Time includes spent on [x] Data Review and interpretation [x] Patient assessment and monitoring of vital signs [x] Documentation [x] Medication orders and management Brief History Patient is a 64-year-old male with known history of hypertension, COPD, history of coronary artery disease, CHF with ejection fraction of 20 to 25% in August 2018 presenting to the emergency room via EMS complaining of shortness of breath. Patient was found to be hypoxic and in respiratory distress. Patient was placed on CPAP in route to the hospital. Oxygen saturation was said to be 88%. Started on Solu-Medrol, Lasix and magnesium in ED, patient was also found to be lethargic with an oxygen saturation of about 91% on CPAP. He was subsequently intubated. Work-up in the emergency room including chest x-ray reveals bilateral pneumonia. He had an elevated white count of 14 and also had an elevated BNP. Patient adm itted to the ICU and placed on empiric IV antibiotics for pneumonia. He tested negative for COVID-19 and placed on isolation precautions. Remains intubated on ventilatory support, sputum cultures positive for Pseudomonas, ID treated with cefepime and Vanco. His hospital course became complicated with acute PE, DVT, paroxysmal atrial fib - placed on heparin drip. Patient difficult to wean off, remains intubated. 11/25: Leukocytosis improving. Continue current management anticipate extubation possible today. 11/26. Still intubated. Failed SBT yesterday. Repeat COVID-19 test is negative. 11/27. CT head ordered for possible neuro status change is negative. More responsive as the day progressed as per RN. Chest xray today shows interval improvement. He is still on antibiotics - will complete regimen today. 11/28: Considering difficult extubation and severe cardiomyopathy, will obtain cardiology consult. Aspiration precautions, tube feeds held, continue antibiotics. 11/29: Still with intermittent fever but improving imaging, continue diuresis. 11/30; Extremely agitated when placed on PSV- SVT, hypertension. Patiet acknowledged that he drinks. IV Ativan given, CIWA protocol initiated. 12 lead ordered showed SVT, one dose of amiodarone ordered. continue to follow up cardiology recommendation 12/01: Patient remains on mechanical ventilation, getting SBT trial. Remains in SVT, started on amiodarone drip by cardiology. 12/02; patient is on mechanical ventilation and on spontaneous breathing trial. Cardiology started the patient on PO amiodarone. Patient is on cefepime. 12/03: patient is on mechanical ventilation. Cardiology started the patient on PO amiodarone for SVT. Patient is on cefepime, no fever overnight. 12/04: Patient is sedated and on mechanical ventilation. Patient had fever yesterday afternoon 102.3, ID changed his cefepime to meropenem. Heart rate is controlled, cardiology is following. Patient has paroxysmal atrial fibrillation and on amiodarone and metoprolol, subcu heparin for anticoagulation and will need oral anticoagulation once stable. 12/05: Sputum cultures positive for Pseudomonas, ID following 12/06; patient is febrile T-max 24 hours 102 F ,ID change antibiotics to cefepime and Vancomycin 12/07: resumed care. Na 149 today, start on 03/26 NS. cont current care 12/08: remains in a stable sinus rhythm and stable blood pressure, continue supportive care. wean off vent as tolerated. persistent fever - ordered CTA chest 12/09: noted bloody discharges from ET tube last night. CTA and LE venous doppler positive for acute PE and DVT. resume heparin drip, consult vascular for possible EKOS/ IVC filter. monitor h/h. cont SBT trial, wean off vent as tolerated. called but no answer 12/10: cont heparin drip for acute PE and DVT, follow vascular recommendation. monitor h/h, wean off vent as tolerated 12/11: o/n had bleeding from ET tube, cont to monitor h/h. vascular recommending medical Mx. called ; Nicolle Araiza [phone]. 12/12: H&H remained stable, patient on heparin drip. Discussed with yesterday. Discussed with critical care attending. Patient not tolerating SBT trial. Continue to wean off from vent as tolerated, follow clinically. Tolerating tube feeding 12/13: Continue heparin drip, wean off from vent as tolerated. Discussed with pulmonary attending if no improvement by the end of 3 weeks of intubation patient may need trach and PEG. Continue to provide supportive care, follow CBC and BMP. 12/14: Stop cefepime today, wean off from vent as tolerated. cont Heparin infusion, while monitoring for bleeding 12/15: Patient is not tolerating SBT trial, becoming apnic on CPAP. May need to place on trach and PEG. Continue heparin drip, monitor off antibiotics 12/16. Still maintained on vent. May need PEG and trach as her has been failed SBTs 12/17. Had low UO overnight. Started on tamsulosin. May need PEG and trach - defer to pulm. 12/18-. Plan for US thoracentesis to help with weaning. Remains on heparin drip for VTE. 12/20. Discussed with spouse today. He will get thoracentesis today. INR/PTT ordered. Heparin drip held. 12/21: planned for trach and PEG, cont supportive care, thoracentesis cancelled 12/22: cont supportive care, wean off from vent, daily SBT 12/23: tolerating SBT, possible extubation soon. cont supportive care 12/24: wean off vent as tolerated, daily SBT, follow clinically 12/25; cont to monitor, wean off vent as tolerated 12/26: Continue to monitor wean off vent as tolerated patient is tolerating SBT trial but not ready to wean off. 12/27: need trach and PEG, will f/u with GS, cont supportive care 12/28: pending trach/PEG 12/29: plan for trach and PEG on Saturday 12/30: Plan for trach and PEG. Temp 101F. Blood cultures, urinalysis and chest xray ordered. 12/31. Had afib with RVR overnight. Metoprolol dose has been increased. He is still on amiodarone. Plan for PEG tube placement today. Repeat chest x-ray shows worsening infiltrates. Started on the Lasix. Monitor fever now. Blood cultures negative so far. Urinalysis pending 01/01. Started on antibiotics as he had another fever. On vancomycin and zosyn. ID consulted. HR still in the 100s. Had trach and PEG placement on 12/31 with no complications. BC 03/28 - Coag negative staph? contaminant. 01/02. On antibiotics. ID consulted. HR still high. Cardiology adjusting HR control medications. 01/03. HR better. Heparin switched to DOAC. HR better. Started on bumex History Interval history: No change in medical condition. Had trach placement on 12/31. Vital stable this morning Hospitalist Physical - Constitutional Vitals: Temp Pulse Resp BP Pulse Ox 99.5 F 95 H 22 109/73 94 01/04/20 03:19 01/04/20 12:28 01/04/20 12:28 01/04/20 12:28 01/04/20 12:28 General appearance: Present: well-nourished, other - EENT Eyes: Present: PERRL - Respiratory Respiratory: bilateral: rales - Cardiovascular Heart Sounds: Present: S1 & S2 - Extremities Extremity abnormal: edema - Abdominal General gastrointestinal: soft, non-tender, non-distended, normal bowel sounds - Neurologic Neurologic: other (Sedated) - Allied Health Allied health notes reviewed: nursing HEART Score - HEART Score Troponin: Troponin T < 0.010 ng/mL (0.00-0.029) 11/24/19 02:53 Results - Labs CBC & Chem 7: 01/04/20 09:50 01/04/20 09:50 Labs: Laboratory Last Values WBC 15.4 K/mm3 (4.5-11.0) H 01/04/20 09:50 RBC 3.30 M/mm3 (3.65-5.03) L 01/04/20 09:50 Hgb 8.7 gm/dl (11.8-15.2) L 01/04/20 09:50 Hct 28.2 % (35.5-45.6) L 01/04/20 09:50 MCV 85 fl (84-94) 01/04/20 09:50 MCH 26 pg (28-32) L 01/04/20 09:50 MCHC 31 % (32-34) L 01/04/20 09:50 RDW 17.0 % (13.2-15.2) H 01/04/20 09:50 Plt Count 205 K/mm3 (140-440) 01/04/20 09:50 Lymph % (Auto) 13.5 % (13.4-35.0) 01/04/20 09:50 [place] % (Auto) 7.6 % (0.0-7.3) H 01/04/20 09:50 Eos % (Auto) 2.9 % (0.0-4.3) 01/04/20 09:50 Baso % (Auto) 0.6 % (0.0-1.8) 01/04/20 09:50 Lymph # (Auto) 2.1 K/mm3 (1.2-5.4) 01/04/20 09:50 [place] # (Auto) 1.2 K/mm3 (0.0-0.8) H 01/04/20 09:50 Eos # (Auto) 0.4 K/mm3 (0.0-0.4) 01/04/20 09:50 Baso # (Auto) 0.1 K/mm3 (0.0-0.1) 01/04/20 09:50 Add Manual Diff Complete 12/19/19 11:32 Total Counted 100 12/19/19 11:32 Seg Neutrophils % 75.4 % (40.0-70.0) H 01/04/20 09:50 Seg Neuts % (Manual) 82.0 % (40.0-70.0) H 12/19/19 11:32 Band Neutrophils % 0 % 12/19/19 11:32 Lymphocytes % (Manual) 10.0 % (13.4-35.0) L 12/19/19 11:32 Reactive Lymphs % (Man) 0 % 12/19/19 11:32 Monocytes % (Manual) 6.0 % (0.0-7.3) 12/19/19 11:32 Eosinophils % (Manual) 2.0 % (0.0-4.3) 12/19/19 11:32 Basophils % (Manual) 0 % (0.0-1.8) 12/19/19 11:32 Metamyelocytes % 0 % 12/19/19 11:32 Myelocytes % 0 % 12/19/19 11:32 Promyelocytes % 0 % 12/19/19 11:32 Blast Cells % 0 % 12/19/19 11:32 Nucleated RBC % 1.0 % (0.0-0.9) H 12/19/19 11:32 Seg Neutrophils # 11.6 K/mm3 (1.8-7.7) H 01/04/20 09:50 Seg Neutrophils # Man 12.0 K/mm3 (1.8-7.7) H 12/19/19 11:32 Band Neutrophils # 0.0 K/mm3 12/19/19 11:32 Lymphocytes # (Manual) 1.5 K/mm3 (1.2-5.4) 12/19/19 11:32 Abs React Lymphs (Man) 0.0 K/mm3 12/19/19 11:32 Monocytes # (Manual) 0.9 K/mm3 (0.0-0.8) H 12/19/19 11:32 Eosinophils # (Manual) 0.3 K/mm3 (0.0-0.4) 12/19/19 11:32 Basophils # (Manual) 0.0 K/mm3 (0.0-0.1) 12/19/19 11:32 Metamyelocytes # 0.0 K/mm3 12/19/19 11:32 Myelocytes # 0.0 K/mm3 12/19/19 11:32 Promyelocytes # 0.0 K/mm3 12/19/19 11:32 Blast Cells # 0.0 K/mm3 12/19/19 11:32 WBC Morphology Not Reportable 12/19/19 11:32 Hypersegmented Neuts Not Reportable 12/19/19 11:32 Hyposegmented Neuts Not Reportable 12/19/19 11:32 Hypogranular Neuts Not Reportable 12/19/19 11:32 Smudge Cells Not Reportable 12/19/19 11:32 Toxic Granulation Not Reportable 12/19/19 11:32 Toxic Vacuolation Not Reportable 12/19/19 11:32 Dohle Bodies Not Reportable 12/19/19 11:32 Pelger-Huet Anomaly Not Reportable 12/19/19 11:32 Hector Rods Not Reportable 12/19/19 11:32 Platelet Estimate Consistent w auto 12/19/19 11:32 Clumped Platelets Not Reportable 12/19/19 11:32 Plt Clumps, EDTA Not Reportable 12/19/19 11:32 Large Platelets Not Reportable 12/19/19 11:32 Giant Platelets Not Reportable 12/19/19 11:32 Platelet Satelliting Not Reportable 12/19/19 11:32 Plt Morphology Comment Not Reportable 12/19/19 11:32 RBC Morphology Not Reportable 12/19/19 11:32 Dimorphic RBCs Not Reportable 12/19/19 11:32 Polychromasia Not Reportable 12/19/19 11:32 Hypochromasia Few 12/19/19 11:32 Poikilocytosis Not Reportable 12/19/19 11:32 Anisocytosis 1+ 12/19/19 11:32 Microcytosis Few 12/19/19 11:32 Macrocytosis Few 12/19/19 11:32 Spherocytes Not Reportable 12/19/19 11:32 Pappenheimer Bodies Not Reportable 12/19/19 11:32 Sickle Cells Not Reportable 12/19/19 11:32 Target Cells Not Reportable 12/19/19 11:32 Tear Drop Cells Not Reportable 12/19/19 11:32 Ovalocytes Not Reportable 12/19/19 11:32 Helmet Cells Not Reportable 12/19/19 11:[address] [place] Bodies Not Reportable 12/19/19 11:32 [place] Rings Not Reportable 12/19/19 11:32 [place] Cells Not Reportable 12/19/19 11:32 Bite Cells Not Reportable 12/19/19 11:32 Crenated Cell Not Reportable 12/19/19 11:32 Elliptocytes Not Reportable 12/19/19 11:32 Acanthocytes (Spur) Not Reportable 12/19/19 11:32 Rouleaux Not Reportable 12/19/19 11:32 Hemoglobin C Crystals Not Reportable 12/19/19 11:32 Schistocytes Not Reportable 12/19/19 11:32 Malaria parasites Not Reportable 12/19/19 11:32 Clifford Bodies Not Reportable 12/19/19 11:32 Hem Pathologist Commnt No 12/19/19 11:32 PT 13.8 Sec. (12.2-14.9) 12/21/19 10:13 INR 1.05 (0.87-1.13) 12/21/19 10:13 APTT 23.9 Sec. (24.2-36.6) L 12/21/19 10:13 Heparin Anti-Xa Level 0.16 U.I./ml (0.3-0.7) L 01/04/20 04:26 ABG pH 7.415 pH Units (7.350-7.450) 01/03/20 18:30 POC ABG pCO2 52.9 mmHg (32.0-48.0) H 12/22/19 03:22 ABG pCO2 57.6 mm Hg 01/03/20 18:30 POC ABG pO2 52.3 mmHg (83-108) L 12/22/19 03:22 ABG pO2 70.7 mm Hg (80.0-90.0) L 01/03/20 18:30 POC ABG HCO3 33.4 12/22/19 03:22 ABG HCO3 36.1 mmol/L (20.0-26.0) H 01/03/20 18:30 ABG O2 Saturation 94.4 % (95.0-99.0) L 01/03/20 18:30 ABG O2 Content 12.5 (0.0-44) 01/03/20 18:30 POC ABG Base Excess 7.7 12/22/19 03:22 ABG Base Excess 10.0 mmol/L (-2.0-3.0) H 01/03/20 18:30 ABG Hemoglobin 9.7 gm/dl (14.0-18.0) L 01/03/20 18:30 ABG Oxyhemoglobin 84 (94-98) L 12/22/19 03:22 ABG Carboxyhemoglobin 2.2 % (0.0-5.0) 01/03/20 18:30 ABG Methemoglobin 0.6 % (0.0-1.5) 01/03/20 18:30 Oxyhemoglobin 91.8 % (95.0-99.0) L 01/03/20 18:30 Carboxyhemoglobin 0.7 (0.5-1.5) 12/22/19 03:22 FiO2 50 % 01/03/20 18:30 Sodium 148 mmol/L (137-145) H 01/04/20 09:50 Potassium 3.5 mmol/L (3.6-5.0) L 01/04/20 09:50 Chloride 105.0 mmol/L (98-107) 01/04/20 09:50 Carbon Dioxide 32 mmol/L (22-30) H 01/04/20 09:50 Anion Gap 15 mmol/L 01/04/20 09:50 BUN 17 mg/dL (9-20) 01/04/20 09:50 Creatinine 0.6 mg/dL (0.8-1.3) L 01/04/20 09:50 Estimated GFR > 60 ml/min 01/04/20 09:50 BUN/Creatinine Ratio 28 % 01/04/20 09:50 Glucose 114 mg/dL (75-100) H 01/04/20 09:50 POC Glucose 111 (70-105) H 01/04/20 12:18 Lactic Acid 2.50 mmol/L (0.7-2.0) H* 11/24/19 10:37 Phosphorus 2.60 mg/dL (2.5-4.5) 12/06/19 05:24 Magnesium 2.60 mg/dL (1.7-2.3) H 12/07/19 12:41 Calcium 9.4 mg/dL (8.4-10.2) 01/04/20 09:50 Ferritin 84.4 ng/mL (30.0-300.0) 11/24/19 04:53 Direct Bilirubin < 0.2 mg/dL (0-0.2) 12/08/19 03:55 Indirect Bilirubin 0.2 mg/dL 12/08/19 03:55 Total Bilirubin 1.20 mg/dL (0.1-1.2) 01/04/20 09:50 Total Creatine Kinase 141 units/L (55-170) 11/24/19 02:53 CK-MB (CK-2) 4.3 ng/mL (0.0-4.0) H 11/24/19 02:53 AST 26 units/L (5-40) 01/04/20 09:50 ALT 59 units/L (7-56) H 01/04/20 09:50 CK-MB (CK-2) Rel Index 3.0 (0-4) 11/24/19 02:53 Alkaline Phosphatase 65 units/L (35-129) 01/04/20 09:50 Troponin T < 0.010 ng/mL (0.00-0.029) 11/24/19 02:53 C-Reactive Protein 8.50 mg/dL (0.00-1.30) H 12/01/19 12:16 Lactate Dehydrogenase 228 units/L (91-180) H 12/19/19 04:45 NT-Pro-B Natriuret Pep 3866 pg/mL (0-900) H 01/01/20 10:40 Total Protein 6.4 g/dL (6.3-8.2) 01/04/20 09:50 Albumin 2.6 g/dL (3.9-5) L 01/04/20 09:50 Albumin/Globulin Ratio 0.7 % 01/04/20 09:50 Procalcitonin 0.76 ng/mL (<0.15) 01/01/20 10:40 Urine Color Cecy (Yellow) 12/31/19 18:04 Urine Turbidity Clear (Clear) 12/31/19 18:04 Urine pH 5.0 (5.0-7.0) 12/31/19 18:04 Ur Specific [place] 1.023 (1.003-1.030) 12/31/19 18:04 Urine Protein <15 mg/dl mg/dL (Negative) 12/31/19 18:04 Urine Glucose (UA) Neg mg/dL (Negative) 12/31/19 18:04 Urine Ketones Neg mg/dL (Negative) 12/31/19 18:04 Urine Blood Neg (Negative) 12/31/19 18:04 Urine Bacteria (Auto) 1+ /HPF (Negative) 12/03/19 06:03 Urine Nitrite Neg (Negative) 12/31/19 18:04 Urine Bilirubin Neg (Negative) 12/31/19 18:04 Urine Urobilinogen 4.0 mg/dL (<2.0) 12/31/19 18:04 Ur Leukocyte Esterase Neg (Negative) 12/31/19 18:04 Urine WBC (Auto) 2.0 /HPF (0.0-6.0) 12/31/19 18:04 Urine RBC (Auto) 3.0 /HPF (0.0-6.0) 12/31/19 18:04 U Epithel Cells (Auto) 2.0 /HPF (0-13.0) 12/31/19 18:04 Urine Mucus 1+ /HPF 12/31/19 18:04 Vancomycin Trough 14.2 ug/mL (5.0-20.0) 12/13/19 15:01 Coronavirus (PCR) Negative (Negative) 12/29/19 10:07 Microbiology: Microbiology 01/03/20 04:58 Tracheal Aspirate Sputum Culture - Preliminary Gram Negative Satish 12/31/19 18:16 Peripheral/Venous Blood Culture - Preliminary NO GROWTH AFTER 72 HOURS - Diagnostic Impressions Diagnostic Impressions: Echocardiogram 11/29/19 07:37 Transthoracic Echocardiogram Indication: CHF BP: 116/72 HR: 33 Conclusions *The study is technically limited due to poor acoustic windows. *Global left ventricular systolic function is normal. *The estimated ejection fraction is 50-55%. *Mild concentric left ventricular hypertrophy is observed. *There is trace of mitral regurgitation. *There is mild tricuspid regurgitation. Findings Procedure Info: The study quality is poor. The study is technically limited due to poor acoustic windows. The study is technically limited due to patient body habitus. Left Ventricle: The left ventricular chamber size is normal. Mild concentric left ventricular hypertrophy is observed. Global left ventricular systolic function is normal. The estimated ejection fraction is 50-55%. Left Atrium: The left atrial chamber size is normal. Right Ventricle: The right ventricular cavity size is normal. Right Atrium: The right atrial cavity size is normal. Aortic Valve: The aortic valve leaflets are moderately thickened. There is trace of aortic regurgitation. There is no evidence of aortic stenosis. Mitral Valve: The mitral valve leaflets are mildly thickened. There is trace of mitral regurgitation. There is no evidence of mitral stenosis. Tricuspid Valve: There is mild tricuspid regurgitation. No pulmonary hypertension is noted. Pulmonic Valve: There is trace pulmonic regurgitation. Pericardium: There is no pericardial effusion. Aorta: There is no dilatation of the aortic root. Venous: The inferior vena cava appears normal in size. Contrast: Definity was used to optimize study. Intravenous contrast was used to enhance endocardial border definition. Measurements Chambers 2D Name Value Normal Range Ao root diameter (2D) 3.4 cm (2 - 3.7) Aortic Valve Name Value Normal Range AV Vmax 0.98 m/sec - AV VTI 16.76 cm - AV peak gradient 3.83 mmHg - AV mean gradient 2.57 mmHg - LVOT diameter 3.11 cm - LVOT Vmax 0.68 m/sec - LVOT VTI 11.52 cm - LVOT peak gradient 1.84 mmHg - LVOT mean gradient 1.27 mmHg - SV LVOT 87.31 ml - MALOU (continuity Vmax) 5.24 cm2 - MALOU (continuity VTI) 5.21 cm2 - Tricuspid Valve Name Value Normal Range IVC diameter 2.24 cm (1.2 - 2.3) Hoffman/IV: Voiding Method Condom Catheter IV Catheter Type [Right Hand] INT / Saline Lock IV Catheter Type [Right Upper INT / Saline Lock arm] IV Catheter Type [Left Upper Mid-line arm] IV Catheter Type [Left Forearm Peripheral IV ] IV Catheter Type [Left Hand] INT / Saline Lock IV Catheter Type [Left Wrist] INT / Saline Lock IV Catheter Type [Right INT / Saline Lock Antecubital] Active Medications - Current Medications Current Medications: Generic Name Dose Route Start Last Admin Trade Name Freq PRN Reason Stop Dose Admin Acetaminophen 650 mg 12/31/19 11:43 01/02/20 03:20 Tylenol FEEDTUBE 650 mg Q6H PRN Administration Pain, Mild (1-3) Amiodarone HCl 200 mg 12/04/19 14:00 01/03/20 22:18 Cordarone PO 200 mg BID CAR Administration Lipase/Protease/Amylase 1 each 12/08/19 12:[address] 10,500 Unit FEEDTUBE PRN PRN For Clogged Feeding Tube Apixaban 5 mg 01/04/20 22:00 Eliquis PO Q12HR CAR Protocol Bumetanide 1 mg 01/04/20 18:00 Bumex IV 01/06/20 06:01 BID@0600,1800 [facility] Docusate Sodium 100 mg 12/02/19 22:00 01/03/20 22:18 Colace FEEDTUBE 100 mg BID CAR Administration Famotidine 20 mg 11/25/19 10:00 01/03/20 22:18 Pepcid PO 20 mg BID CAR Administration Fentanyl 50 mcg 12/30/19 10:46 01/02/20 10:06 Sublimaze IV 50 mcg Q10MIN PRN Administration ANALGESIA Haloperidol Lactate 5 mg 12/25/19 10:00 01/02/20 17:13 Haldol IV 5 mg Q6H PRN Administration Unrespon. to mult. doses BZD's Fentanyl Citrate 2,000 mcg in 100 mls @ 5.67 mls/hr 12/30/19 11:00 01/04/20 04:43 Fentanyl Drip Premix IV 2 mcg/kg/hr TITR CAR 11.34 mls/hr Administration Protocol 1 MCG/KG/HR Vancomycin HCl 1,750 mg/ 535 mls @ 333.333 mls/hr 01/02/20 12:00 01/04/20 00:03 Sodium Chloride IV 333.333 mls/hr Q12H CAR Administration Piperacillin Sod/Tazobactam Sod 4.5 gm in 100 mls @ 200 mls/hr 01/02/20 08:00 01/04/20 06:13 Zosyn/Ns 4.5gm/100ml IV 200 mls/hr Q8HR CAR Administration Protocol Insulin Human Lispro 0 unit 12/05/19 19:00 01/03/20 18:07 Humalog SUB-Q Not Given Q6H [facility] Protocol Lorazepam 2 mg 12/25/19 10:00 01/03/20 10:23 Ativan IV 2 mg Q6H PRN Administration AGITATION Metoprolol Tartrate 50 mg 01/02/20 10:00 01/04/20 06:14 Metoprolol FEEDTUBE 50 mg Q6HR CAR Administration Polyethylene Glycol 17 gm 12/04/19 22:00 01/03/20 22:18 Miralax 3350 PO 17 gm QHS CAR Administration Potassium Chloride 40 meq 01/04/20 13:41 K-Dur PO 01/04/20 13:42 ONCE ONE Quetiapine Fumarate 200 mg 12/24/19 13:00 01/03/20 22:18 Seroquel PO 200 mg BID CAR Administration Simple Syrup 15 ml 12/08/19 12:07 Simple Syrup FEEDTUBE PRN PRN Hypoglycemia Simple Syrup 30 ml 12/08/19 12:07 Simple Syrup FEEDTUBE PRN PRN Hypoglycemia Sodium Bicarbonate 325 mg 12/08/19 12:07 Sodium Bicarbonate FEEDTUBE PRN PRN For Clogged Feeding Tube Sodium Chloride 10 ml 11/24/19 10:00 01/03/20 09:21 Sodium Chloride Flush Syringe 10 Ml IV 10 ml BID CAR Administration Tamsulosin HCl 0.8 mg 12/20/19 22:00 01/03/20 22:18 Flomax PO 0.8 mg QHS CAR Administration Nutrition/Malnutrition Assess - Dietary Evaluation Nutrition/Malnutrition Findings: Nutrition Notes Start: 11/24/19 12:22 Freq: Status: Active Protocol: Document 12/30/19 11:51 ARISTIDES (Rec: 12/30/19 11:56 [email or web address] [email or web address]) Co-Sign 12/30/19 11:51 LEONA Nutrition Notes Initial or Follow up Reassessment Current Diagnosis Coronary Artery Disease,Heart Failure,Respiratory Failure, Stroke,Hyperlipidemia Current Diet TF Vital HP 65ml/hr Labs/Tests BUN 26 BG 128 Pertinent Medications Insulin Height 6 ft 2 in Weight 116.7 kg [place] Body Weight (kg) 86.36 BMI 33.0 Weight change and time frame Wt change noted Weight Status Obese Subjective/Other Information F/U for stable TF. Pt tolerating TF at 65 ml/hr. Percent of energy/protein needs met: 100%/79% Burn Absent Trauma Absent Current % PO Negligible Minimum of two criteria No Fluid Accumulation Mild (non-severe) #1 Nutrition Diagnosis Inadequate oral intake Diagnosis Progress(for reassessment Continues documentation) Is patient on ventilator? Yes Is Patient Ambulatory and/or Out of Bed No REE-([facility]-confined to bed) 2442.744 Kcal/Kg value to use for calculation 13 Approximate Energy Requirements Using 1517 kcal/Kg Calculation Used for Recommendations Kcal/kg Additional Notes Protein needs 173g (at least 2 g/kg IBW) Fluid needs 1.5-1.9L Nutrition Intervention Change Diet Order: Continue TF Nutrition Support: Vital HP at 65ml/hr Flush 100ml q4h Hypernatermia 250ml q4h Kcal 1,560 Protein (gm) 137 Fluid (mL) 1,304 Goal #1 TF meets at least 80% of energy and protein needs. Goal #2 TF tolerance Anticipated Discharge Needs: unable to determine at this time Follow-Up By: 01/06/20 Additional Comments F/U for stable TF
[2020-01-04] MEDS ORDERED: POTASSIUM CHLORIDE ER 20 MEQ TAB PO ONE (14:00)
[2020-01-04] MEDS: INSULIN LISPRO 100 UNIT/ML VIAL 3 mL SUB-Q SCH ×4 (14:29→19:03)
[2020-01-04] MEDS: QUEtiapine 200 MG TAB PO SCH ×2 (14:45→21:24)
[2020-01-04] MEDS: DOCUSATE SODIUM 100 MG/10 ML ORAL LIQD FEEDTUBE SCH ×2 (14:45→21:21)
[2020-01-04] MEDS: FAMOTIDINE 20 MG TAB PO SCH ×2 (14:45→21:23)
[2020-01-04] MEDS: AMIODARONE 200 MG TAB PO SCH ×2 (14:46→21:23)
[2020-01-04] MEDS: BUMETANIDE 1 MG/4 ML INJ IV SCH (19:13)
[2020-01-04] MEDS: TAMSULOSIN 0.4 MG CAP PO SCH (21:23)
[2020-01-04] MEDS: POLYETHYLENE GLYCOL 3350 17 GM POWDER PO SCH (21:23)
[2020-01-04] MEDS: APIXABAN 5 MG TAB PO SCH (21:23)
[2020-01-05] MEDS: VANCOMYCIN 1,750 MG in SODIUM CHLORIDE 0.9% 500 ML 500 ML IV SCH (00:08)
[2020-01-05] MEDS: METOPROLOL TARTRATE 25 MG TAB FEEDTUBE SCH ×5 (00:08→23:56)
[2020-01-05] MEDS: INSULIN LISPRO 100 UNIT/ML VIAL 3 mL SUB-Q SCH ×3 (02:35→18:55)
--- NOTE | 2020-01-05 02:48 | XRay Report ---
CHEST 1 VIEW INDICATION: respiratory failure. COMPARISON: 2 days prior FINDINGS: Support devices: Unchanged. Heart: Stable. Lungs/Pleura: Bilateral pulmonary opacities are stable. IMPRESSION: 1. No significant change. Signer Name: Marbin Sanchez MD Signed: 01/05/2020 2:43 AM Workstation Name: [id number]
[2020-01-05 05:19] LABS: Basophils # (Auto) 0.1 K/mm3 (0.0-0.1); Basophils % (Auto) 0.6 % (0.0-1.8); Eosinophils # (Auto) 0.3 K/mm3 (0.0-0.4); Eosinophils % (Auto) 2.6 % (0.0-4.3); Hematocrit 29.9 % (35.5-45.6); Hemoglobin 9.3 gm/dl (11.8-15.2); Lymphocytes # (Auto) 1.5 K/mm3 (1.2-5.4); Lymphocytes % (Auto) 13.1 % (13.4-35.0); Mean Corpuscular HGB Conc 31 % (32-34); Mean Corpuscular Volume 85 fl (84-94); Monocytes # (Auto) 1.1 K/mm3 (0.0-0.8); Monocytes % (Auto) 9.7 % (0.0-7.3); Platelet Count 252 K/mm3 (140-440); Red Cell Distribution Width 16.6 % (13.2-15.2)
[2020-01-05] MEDS: fentaNYL DRIP Premix 2,000 MCG/100 ML BAG IV SCH ×2 (05:19→12:33)
[2020-01-05 05:31] LABS: Alanine Aminotransferase 59 units/L (7-56); Albumin 2.6 g/dL (3.9-5); Blood Urea Nitrogen 14 mg/dL (9-20); Calcium 9.3 mg/dL (8.4-10.2); Hemolysis Index 1
[2020-01-05 05:38] LABS: BUN/Creatinine Ratio 20
--- NOTE | 2020-01-05 05:51 | XRay Report ---
ABDOMEN 3 VIEW(S) INDICATION / CLINICAL INFORMATION: Vomiting. COMPARISON: 12/22/2019 FINDINGS: TUBES / LINES: Gastrostomy tip projects over the gastric antrum. BOWEL GAS PATTERN: There are diffusely dilated, gas-filled loops of small bowel. Gas is noted through out the colon, which is normal in caliber. FREE AIR / EXTRALUMINAL GAS: None seen. ADDITIONAL FINDINGS: No significant additional findings. IMPRESSION: 1. Diffuse small bowel dilatation. While there is gas noted throughout the colon, the colon is relati vely normal in caliber. These findings are concerning for at least partial small bowel obstruction. Signer Name: Marbin Sanchez MD Signed: 01/05/2020 5:46 AM Workstation Name: [id number]
[2020-01-05] MEDS: PIPERACIL/TAZOBACTA 4.5/NS 100 4.5 GM/100 ML VIAL IV SCH ×3 (06:39→22:35)
[2020-01-05] MEDS: BUMETANIDE 1 MG/4 ML INJ IV SCH ×2 (06:39→19:01)
[2020-01-05] MEDS: AMIODARONE 200 MG TAB PO SCH ×2 (10:29→21:40)
[2020-01-05] MEDS: APIXABAN 5 MG TAB PO SCH (10:29)
[2020-01-05] MEDS: DOCUSATE SODIUM 100 MG/10 ML ORAL LIQD FEEDTUBE SCH ×2 (10:29→21:40)
[2020-01-05] MEDS: QUEtiapine 200 MG TAB PO SCH ×2 (10:30→21:41)
[2020-01-05] MEDS: FAMOTIDINE 20 MG TAB PO SCH ×2 (10:30→21:41)
--- NOTE | 2020-01-05 10:30 | Progress Note ---
Assessment and Plan Acute hypoxemic respiratory failure s/p trach on MVS Bilateral pneumonia, community acquired. Acute congestive heart failure exacerbation. History of cerebrovascular accident. Acute chronic obstructive pulmonary disease exacerbation. Hypertension and hypertensive urgency at presentation. History of arthritis. Oropharyngeal dysphagia Right Lext DVT Pulmonary embolism Trach care, airway clearance, secretion management Get CT Abdomen and pelvis with oral contrast Place NGT to LIS, PEG to gravity Stop Apixaban, chnage to therapeutic lovenox Strict NPO, bowel rest with serial abdominal exams Start D5 1/2Nsaline at 75ml/hour while NPO, monitor hypernatremia General surgery consult, once CTScan/Abdomen is reviewed BMP in am Monitor closely CXR, ABG as clinically indicated Start Precedex Continue accuchecks with glycemic control per SSI for target blood glucose goal of 140-180 mg/dL while critically ill; Avoid hypoglycemia - continue to monitor renal function, hemodynamics and electrolyte profile - continue to wean oxygen for O2 sats > 90% - continue bronchodilators with pulmonary hygiene per RT - VAP bundle addressed (Aspiration precautions, HOB >40) - continue to wean per pulmonary driven protocols - continue prn analgesia per CPOT score - follow clinically re: fever curves / trend WBC - Avoid delirium (no benzodiazepines if they can be avoided) - continue stress ulcer prophylaxis with Famotidine BID - continue mobility protocols for pressure ulcer prophylaxis - continue fall precautions - Supportive transfusions as indicated to keep HgB>7g/dL - Continue to monitor neurologic function - Continue chronic home medications as clinically indicated - Continue all supportive care CONDITION: CRITICAL PROGNOSIS: GUARDED CODE STATUS: FULL CODE The high probability of a clinically significant, sudden or life threatening deterioration of the [Respiratory, cardiovascular & neurological] system(s) required my full and direct attention, intervention and personal management. The aggregate critical care time was [33] minutes without overlap. Time includes spent on [x] Data Review and interpretation [x] Patient assessment and monitoring of vital signs [x] Documentation [x] Medication orders and management Subjective Date of service: 01/05/20 Principal diagnosis: Ac hypoxemic resp failure; Pneumonia; PUI COVID-19; CHF; COPD; HTN Interval history: Patient is seen today for: Acute hypoxemic respiratory failure; [place]. Pneumonia (CAP); PUI COVID-19 infection; AE-CHF; AE-COPD; H/O CVA; HTN; PE, DVT Seen and examined at bedside; 24 hour events reviewed; nursing and respiratory care staff consulted; no adverse overnight events reported to me; resting peacefully in bed;s/p trach No asynchrony, Vomiting overnight and this morning. Tube feedings on hold No fevers. Objective Vital Signs - 12hr 01/04/20 01/04/20 01/04/20 22:30 23:00 23:18 Temperature Pulse Rate 97 H 95 H 97 H Pulse Rate [ From Monitor] Respiratory Rate Blood Pressure 113/77 114/71 114/71 O2 Sat by Pulse 93 88 96 Oximetry 01/04/20 01/04/20 01/05/20 23:22 23:30 00:00 Temperature 99.7 F H Pulse Rate 101 H 112 H Pulse Rate [ From Monitor] Respiratory Rate Blood Pressure 114/66 107/81 O2 Sat by Pulse 88 94 Oximetry 01/05/20 01/05/20 01/05/20 00:30 01:00 01:30 Temperature Pulse Rate 98 H 113 H 88 Pulse Rate [ 97 H From Monitor] Respiratory 22 Rate Blood Pressure 116/72 120/74 115/78 O2 Sat by Pulse 86 93 96 Oximetry 01/05/20 01/05/20 01/05/20 02:00 02:30 03:00 Temperature Pulse Rate 97 H 132 H 109 H Pulse Rate [ From Monitor] Respiratory Rate Blood Pressure 120/78 127/91 127/79 O2 Sat by Pulse 94 94 94 Oximetry 01/05/20 01/05/20 01/05/20 03:30 03:31 03:46 Temperature 99.1 F Pulse Rate 99 H 99 H Pulse Rate [ From Monitor] Respiratory Rate Blood Pressure 123/83 123/83 O2 Sat by Pulse 93 96 Oximetry 01/05/20 01/05/20 01/05/20 04:00 04:19 04:30 Temperature Pulse Rate 118 H 125 H 115 H Pulse Rate [ 125 H From Monitor] Respiratory 20 Rate Blood Pressure 130/76 128/86 O2 Sat by Pulse 94 97 Oximetry 01/05/20 01/05/20 01/05/20 05:01 05:30 06:00 Temperature Pulse Rate 136 H 144 H Pulse Rate [ From Monitor] Respiratory 24 15 Rate Blood Pressure 147/92 156/97 157/78 O2 Sat by Pulse 94 95 95 Oximetry 01/05/20 01/05/20 01/05/20 06:31 07:01 08:00 Temperature 100.1 F H Pulse Rate 99 H 147 H Pulse Rate [ From Monitor] Respiratory 12 19 Rate Blood Pressure 128/78 126/82 O2 Sat by Pulse 96 100 Oximetry 01/05/20 08:20 Temperature Pulse Rate 109 H Pulse Rate [ From Monitor] Respiratory Rate Blood Pressure 138/92 O2 Sat by Pulse 98 Oximetry Constitutional: no acute distress, alert, other (elelderly and obese male, normocephalic with mildly increased respiratory effort at rest on MVS) Eyes: non-icteric ENT: oropharynx moist, other (trach to MVS) Neck: supple, no JVD Effort: mildly labored Ascultation: Bilateral: clear, diminished breath sounds (bases R>L), rhonchi Percussion: Bilateral: not dull Cardiovascular: irregular rhythm, other (S1,S2) Gastrointestinal: hypoactive bowel sounds, soft, non-tender, other (distended) Integumentary: normal Extremities: no cyanosis, pulses normal, no ischemia or petechiae, edema (bilateral upper ) Neurologic: normal mental status, non-focal exam (moves all extremities with extreme agitation), pupils equal and round Psychiatric: anxious CBC and BMP: 01/07/20 04:10 01/07/20 04:10 ABG, PT/INR, D-dimer: ABG ABG pH 7.415 pH Units (7.350-7.450) 01/03/20 18:30 POC ABG pCO2 52.9 mmHg (32.0-48.0) H 12/22/19 03:22 ABG pCO2 57.6 mm Hg 01/03/20 18:30 POC ABG pO2 52.3 mmHg (83-108) L 12/22/19 03:22 ABG pO2 70.7 mm Hg (80.0-90.0) L 01/03/20 18:30 POC ABG HCO3 33.4 12/22/19 03:22 ABG O2 Saturation 94.4 % (95.0-99.0) L 01/03/20 18:30 PT/INR, D-dimer PT 13.8 Sec. (12.2-14.9) 12/21/19 10:13 INR 1.05 (0.87-1.13) 12/21/19 10:13 Abnormal lab findings: Abnormal Labs 0911/24/19 11/24/19 02:53 02:53 03:45 WBC 14.3 H RBC Hgb Hct MCHC RDW 17.2 H MCH Lymph % (Auto) [place] % (Auto) [place] # Eos # Lymph # (Auto) [place] # (Auto) Eos # (Auto) Seg Neutrophils % Seg Neuts % (Manual) Baso # (Auto) Lymphocytes % (Manual) Monocytes % (Manual) Eosinophils % (Manual) Basophils % (Manual) Seg Neutrophils # Seg Neutrophils # Man 8.3 H Lymphocytes # (Manual) Monocytes # (Manual) 0.9 H Eosinophils # (Manual) Nucleated RBC % Basophils # (Manual) APTT Heparin Anti-Xa Level ABG pH 7.313 L POC ABG pO2 ABG pO2 102.8 H ABG HCO3 ABG O2 Saturation ABG Base Excess -2.9 L POC ABG pCO2 ABG Hemoglobin ABG Oxyhemoglobin Oxyhemoglobin 93.9 L Sodium Potassium Chloride Carbon Dioxide BUN Creatinine Glucose 195 H POC Glucose Lactic Acid Calcium Phosphorus Magnesium AST ALT Lactate Dehydrogenase CK-MB (CK-2) 4.3 H C-Reactive Protein NT-Pro-B Natriuret Pep 1181 H Total Protein Albumin Urine WBC (Auto) 11/24/19 11/24/19 11/24/19 04:53 04:53 10:37 WBC RBC Hgb Hct MCHC RDW MCH Lymph % (Auto) [place] % (Auto) [place] # Eos # Lymph # (Auto) [place] # (Auto) Eos # (Auto) Seg Neutrophils % Seg Neuts % (Manual) Baso # (Auto) Lymphocytes % (Manual) Monocytes % (Manual) Eosinophils % (Manual) Basophils % (Manual) Seg Neutrophils # Seg Neutrophils # Man Lymphocytes # (Manual) Monocytes # (Manual) Eosinophils # (Manual) Nucleated RBC % Basophils # (Manual) APTT Heparin Anti-Xa Level ABG pH POC ABG pO2 ABG pO2 ABG HCO3 ABG O2 Saturation ABG Base Excess POC ABG pCO2 ABG Hemoglobin ABG Oxyhemoglobin Oxyhemoglobin Sodium Potassium Chloride Carbon Dioxide BUN Creatinine Glucose 162 H POC Glucose Lactic Acid 2.40 H* 2.50 H* Calcium Phosphorus Magnesium AST ALT Lactate Dehydrogenase 240 H CK-MB (CK-2) C-Reactive Protein NT-Pro-B Natriuret Pep Total Protein Albumin Urine WBC (Auto) 11/24/19 11/24/19 11/24/19 12:21 14:50 19:54 WBC RBC Hgb Hct MCHC RDW MCH Lymph % (Auto) [place] % (Auto) [place] # Eos # Lymph # (Auto) [place] # (Auto) Eos # (Auto) Seg Neutrophils % Seg Neuts % (Manual) Baso # (Auto) Lymphocytes % (Manual) Monocytes % (Manual) Eosinophils % (Manual) Basophils % (Manual) Seg Neutrophils # Seg Neutrophils # Man Lymphocytes # (Manual) Monocytes # (Manual) Eosinophils # (Manual) Nucleated RBC % Basophils # (Manual) APTT Heparin Anti-Xa Level ABG pH POC ABG pO2 ABG pO2 ABG HCO3 ABG O2 Saturation ABG Base Excess POC ABG pCO2 ABG Hemoglobin ABG Oxyhemoglobin Oxyhemoglobin Sodium Potassium Chloride Carbon Dioxide BUN Creatinine Glucose POC Glucose 145 H 143 H 124 H Lactic Acid Calcium Phosphorus Magnesium AST ALT Lactate Dehydrogenase CK-MB (CK-2) C-Reactive Protein NT-Pro-B Natriuret Pep Total Protein Albumin Urine WBC (Auto) 11/25/19 11/25/19 11/25/19 00:18 03:18 05:11 WBC 13.7 H RBC Hgb Hct MCHC RDW 17.1 H MCH Lymph % (Auto) 10.8 L [place] % (Auto) 8.7 H [place] # 1.2 H Eos # Lymph # (Auto) [place] # (Auto) Eos # (Auto) Seg Neutrophils % 80.2 H Seg Neuts % (Manual) Baso # (Auto) Lymphocytes % (Manual) Monocytes % (Manual) Eosinophils % (Manual) Basophils % (Manual) Seg Neutrophils # 11.0 H Seg Neutrophils # Man Lymphocytes # (Manual) Monocytes # (Manual) Eosinophils # (Manual) Nucleated RBC % Basophils # (Manual) APTT Heparin Anti-Xa Level ABG pH 7.333 L POC ABG pO2 ABG pO2 61.2 L ABG HCO3 ABG O2 Saturation 90.2 L ABG Base Excess POC ABG pCO2 ABG Hemoglobin 13.7 L ABG Oxyhemoglobin Oxyhemoglobin 88.2 L Sodium Potassium Chloride Carbon Dioxide BUN Creatinine Glucose POC Glucose 109 H Lactic Acid Calcium Phosphorus Magnesium AST ALT Lactate Dehydrogenase CK-MB (CK-2) C-Reactive Protein NT-Pro-B Natriuret Pep Total Protein Albumin Urine WBC (Auto) 11/25/19 11/25/19 11/26/19 05:11 11:40 03:12 WBC RBC Hgb Hct MCHC RDW MCH Lymph % (Auto) [place] % (Auto) [place] # Eos # Lymph # (Auto) [place] # (Auto) Eos # (Auto) Seg Neutrophils % Seg Neuts % (Manual) Baso # (Auto) Lymphocytes % (Manual) Monocytes % (Manual) Eosinophils % (Manual) Basophils % (Manual) Seg Neutrophils # Seg Neutrophils # Man Lymphocytes # (Manual) Monocytes # (Manual) Eosinophils # (Manual) Nucleated RBC % Basophils # (Manual) APTT Heparin Anti-Xa Level ABG pH POC ABG pO2 ABG pO2 155.1 H ABG HCO3 27.8 H ABG O2 Saturation ABG Base Excess POC ABG pCO2 ABG Hemoglobin 12.2 L ABG Oxyhemoglobin Oxyhemoglobin Sodium Potassium Chloride Carbon Dioxide BUN 23 H Creatinine Glucose 110 H POC Glucose 108 H Lactic Acid Calcium Phosphorus Magnesium AST ALT Lactate Dehydrogenase CK-MB (CK-2) C-Reactive Protein NT-Pro-B Natriuret Pep Total Protein Albumin Urine WBC (Auto) 11/26/19 11/26/19 11/26/19 06:17 10:43 10:43 WBC 11.4 H RBC Hgb Hct MCHC RDW 17.1 H MCH Lymph % (Auto) [place] % (Auto) [place] # Eos # Lymph # (Auto) [place] # (Auto) Eos # (Auto) Seg Neutrophils % Seg Neuts % (Manual) Baso # (Auto) Lymphocytes % (Manual) Monocytes % (Manual) Eosinophils % (Manual) Basophils % (Manual) Seg Neutrophils # Seg Neutrophils # Man Lymphocytes # (Manual) Monocytes # (Manual) Eosinophils # (Manual) Nucleated RBC % Basophils # (Manual) APTT Heparin Anti-Xa Level ABG pH POC ABG pO2 ABG pO2 ABG HCO3 ABG O2 Saturation ABG Base Excess POC ABG pCO2 ABG Hemoglobin ABG Oxyhemoglobin Oxyhemoglobin Sodium Potassium Chloride Carbon Dioxide BUN 29 H Creatinine Glucose POC Glucose 107 H Lactic Acid Calcium Phosphorus Magnesium AST ALT Lactate Dehydrogenase CK-MB (CK-2) C-Reactive Protein NT-Pro-B Natriuret Pep Total Protein Albumin Urine WBC (Auto) 11/26/19 11/27/19 11/27/19 17:11 01:53 04:11 WBC RBC Hgb Hct MCHC RDW MCH Lymph % (Auto) [place] % (Auto) [place] # Eos # Lymph # (Auto) [place] # (Auto) Eos # (Auto) Seg Neutrophils % Seg Neuts % (Manual) Baso # (Auto) Lymphocytes % (Manual) Monocytes % (Manual) Eosinophils % (Manual) Basophils % (Manual) Seg Neutrophils # Seg Neutrophils # Man Lymphocytes # (Manual) Monocytes # (Manual) Eosinophils # (Manual) Nucleated RBC % Basophils # (Manual) APTT Heparin Anti-Xa Level ABG pH POC ABG pO2 ABG pO2 ABG HCO3 29.2 H ABG O2 Saturation ABG Base Excess 3.4 H POC ABG pCO2 ABG Hemoglobin 13.3 L ABG Oxyhemoglobin Oxyhemoglobin 94.5 L Sodium Potassium Chloride Carbon Dioxide BUN Creatinine Glucose POC Glucose 113 H 108 H Lactic Acid Calcium Phosphorus Magnesium AST ALT Lactate Dehydrogenase CK-MB (CK-2) C-Reactive Protein NT-Pro-B Natriuret Pep Total Protein Albumin Urine WBC (Auto) 11/27/19 11/28/19 11/28/19 05:27 05:00 05:25 WBC RBC Hgb Hct MCHC RDW MCH Lymph % (Auto) [place] % (Auto) [place] # Eos # Lymph # (Auto) [place] # (Auto) Eos # (Auto) Seg Neutrophils % Seg Neuts % (Manual) Baso # (Auto) Lymphocytes % (Manual) Monocytes % (Manual) Eosinophils % (Manual) Basophils % (Manual) Seg Neutrophils # Seg Neutrophils # Man Lymphocytes # (Manual) Monocytes # (Manual) Eosinophils # (Manual) Nucleated RBC % Basophils # (Manual) APTT Heparin Anti-Xa Level ABG pH POC ABG pO2 68.1 L ABG pO2 ABG HCO3 ABG O2 Saturation ABG Base Excess POC ABG pCO2 ABG Hemoglobin ABG Oxyhemoglobin 91.2 L Oxyhemoglobin Sodium Potassium Chloride Carbon Dioxide BUN Creatinine Glucose POC Glucose 111 H 110 H Lactic Acid Calcium Phosphorus Magnesium AST ALT Lactate Dehydrogenase CK-MB (CK-2) C-Reactive Protein NT-Pro-B Natriuret Pep Total Protein Albumin Urine WBC (Auto) 11/28/19 11/28/19 11/28/19 12:08 13:47 13:47 WBC 11.3 H RBC Hgb Hct MCHC RDW 16.1 H MCH Lymph % (Auto) [place] % (Auto) 9.9 H [place] # 1.1 H Eos # Lymph # (Auto) [place] # (Auto) Eos # (Auto) Seg Neutrophils % 71.4 H Seg Neuts % (Manual) Baso # (Auto) Lymphocytes % (Manual) Monocytes % (Manual) Eosinophils % (Manual) Basophils % (Manual) Seg Neutrophils # 8.1 H Seg Neutrophils # Man Lymphocytes # (Manual) Monocytes # (Manual) Eosinophils # (Manual) Nucleated RBC % Basophils # (Manual) APTT Heparin Anti-Xa Level ABG pH POC ABG pO2 ABG pO2 ABG HCO3 ABG O2 Saturation ABG Base Excess POC ABG pCO2 ABG Hemoglobin ABG Oxyhemoglobin Oxyhemoglobin Sodium Potassium Chloride Carbon Dioxide BUN 23 H Creatinine Glucose 123 H POC Glucose 112 H Lactic Acid Calcium Phosphorus Magnesium AST ALT Lactate Dehydrogenase CK-MB (CK-2) C-Reactive Protein NT-Pro-B Natriuret Pep Total Protein Albumin 3.7 L Urine WBC (Auto) 11/28/19 11/29/19 11/29/19 17:26 03:55 17:04 WBC RBC Hgb Hct MCHC RDW MCH Lymph % (Auto) [place] % (Auto) [place] # Eos # Lymph # (Auto) [place] # (Auto) Eos # (Auto) Seg Neutrophils % Seg Neuts % (Manual) Baso # (Auto) Lymphocytes % (Manual) Monocytes % (Manual) Eosinophils % (Manual) Basophils % (Manual) Seg Neutrophils # Seg Neutrophils # Man Lymphocytes # (Manual) Monocytes # (Manual) Eosinophils # (Manual) Nucleated RBC % Basophils # (Manual) APTT Heparin Anti-Xa Level ABG pH POC ABG pO2 ABG pO2 65.7 L ABG HCO3 28.3 H ABG O2 Saturation 93.9 L ABG Base Excess 3.6 H POC ABG pCO2 ABG Hemoglobin 13.3 L ABG Oxyhemoglobin Oxyhemoglobin 91.5 L Sodium Potassium Chloride Carbon Dioxide BUN Creatinine Glucose POC Glucose 123 H 119 H Lactic Acid Calcium Phosphorus Magnesium AST ALT Lactate Dehydrogenase CK-MB (CK-2) C-Reactive Protein NT-Pro-B Natriuret Pep Total Protein Albumin Urine WBC (Auto) 11/30/19 11/30/19 11/30/19 04:17 04:17 04:56 WBC 13.4 H RBC Hgb Hct MCHC RDW 15.6 H MCH Lymph % (Auto) [place] % (Auto) [place] # Eos # Lymph # (Auto) [place] # (Auto) Eos # (Auto) Seg Neutrophils % Seg Neuts % (Manual) Baso # (Auto) Lymphocytes % (Manual) Monocytes % (Manual) Eosinophils % (Manual) Basophils % (Manual) Seg Neutrophils # Seg Neutrophils # Man Lymphocytes # (Manual) Monocytes # (Manual) Eosinophils # (Manual) Nucleated RBC % Basophils # (Manual) APTT Heparin Anti-Xa Level ABG pH POC ABG pO2 ABG pO2 56.3 L ABG HCO3 29.3 H ABG O2 Saturation 91.5 L ABG Base Excess 4.7 H POC ABG pCO2 ABG Hemoglobin 12.1 L ABG Oxyhemoglobin Oxyhemoglobin 89.2 L Sodium 147 H Potassium Chloride Carbon Dioxide BUN 30 H Creatinine Glucose 124 H POC Glucose Lactic Acid Calcium Phosphorus Magnesium AST ALT Lactate Dehydrogenase CK-MB (CK-2) C-Reactive Protein NT-Pro-B Natriuret Pep Total Protein Albumin 3.8 L Urine WBC (Auto) 11/30/19 11/30/19 11/30/19 05:51 11:54 18:17 WBC RBC Hgb Hct MCHC RDW MCH Lymph % (Auto) [place] % (Auto) [place] # Eos # Lymph # (Auto) [place] # (Auto) Eos # (Auto) Seg Neutrophils % Seg Neuts % (Manual) Baso # (Auto) Lymphocytes % (Manual) Monocytes % (Manual) Eosinophils % (Manual) Basophils % (Manual) Seg Neutrophils # Seg Neutrophils # Man Lymphocytes # (Manual) Monocytes # (Manual) Eosinophils # (Manual) Nucleated RBC % Basophils # (Manual) APTT Heparin Anti-Xa Level ABG pH POC ABG pO2 ABG pO2 ABG HCO3 ABG O2 Saturation ABG Base Excess POC ABG pCO2 ABG Hemoglobin ABG Oxyhemoglobin Oxyhemoglobin Sodium Potassium Chloride Carbon Dioxide BUN Creatinine Glucose POC Glucose 127 H 115 H 143 H Lactic Acid Calcium Phosphorus Magnesium AST ALT Lactate Dehydrogenase CK-MB (CK-2) C-Reactive Protein NT-Pro-B Natriuret Pep Total Protein Albumin Urine WBC (Auto) 12/01/19 12/01/19 12/01/19 01:18 05:22 12:16 WBC RBC Hgb Hct MCHC RDW MCH Lymph % (Auto) [place] % (Auto) [place] # Eos # Lymph # (Auto) [place] # (Auto) Eos # (Auto) Seg Neutrophils % Seg Neuts % (Manual) Baso # (Auto) Lymphocytes % (Manual) Monocytes % (Manual) Eosinophils % (Manual) Basophils % (Manual) Seg Neutrophils # Seg Neutrophils # Man Lymphocytes # (Manual) Monocytes # (Manual) Eosinophils # (Manual) Nucleated RBC % Basophils # (Manual) APTT Heparin Anti-Xa Level ABG pH POC ABG pO2 ABG pO2 ABG HCO3 ABG O2 Saturation ABG Base Excess POC ABG pCO2 ABG Hemoglobin ABG Oxyhemoglobin Oxyhemoglobin Sodium Potassium 3.5 L Chloride 107.8 H Carbon Dioxide BUN 37 H Creatinine Glucose 157 H POC Glucose 118 H 148 H Lactic Acid Calcium 8.2 L D Phosphorus Magnesium AST 48 H ALT 60 H Lactate Dehydrogenase 194 H CK-MB (CK-2) C-Reactive Protein 8.50 H NT-Pro-B Natriuret Pep Total Protein 5.5 L Albumin 2.8 L Urine WBC (Auto) 12/01/19 12/02/19 12/02/19 18:04 00:05 05:16 WBC 11.4 H RBC Hgb Hct MCHC RDW 15.9 H MCH Lymph % (Auto) [place] % (Auto) 9.9 H [place] # 1.1 H Eos # Lymph # (Auto) [place] # (Auto) Eos # (Auto) Seg Neutrophils % 70.3 H Seg Neuts % (Manual) Baso # (Auto) Lymphocytes % (Manual) Monocytes % (Manual) Eosinophils % (Manual) Basophils % (Manual) Seg Neutrophils # 8.0 H Seg Neutrophils # Man Lymphocytes # (Manual) Monocytes # (Manual) Eosinophils # (Manual) Nucleated RBC % Basophils # (Manual) APTT Heparin Anti-Xa Level ABG pH POC ABG pO2 ABG pO2 ABG HCO3 ABG O2 Saturation ABG Base Excess POC ABG pCO2 ABG Hemoglobin ABG Oxyhemoglobin Oxyhemoglobin Sodium Potassium Chloride Carbon Dioxide BUN Creatinine Glucose POC Glucose 143 H 107 H Lactic Acid Calcium Phosphorus Magnesium AST ALT Lactate Dehydrogenase CK-MB (CK-2) C-Reactive Protein NT-Pro-B Natriuret Pep Total Protein Albumin Urine WBC (Auto) 12/02/19 12/02/19 12/02/19 05:16 06:03 11:52 WBC RBC Hgb Hct MCHC RDW MCH Lymph % (Auto) [place] % (Auto) [place] # Eos # Lymph # (Auto) [place] # (Auto) Eos # (Auto) Seg Neutrophils % Seg Neuts % (Manual) Baso # (Auto) Lymphocytes % (Manual) Monocytes % (Manual) Eosinophils % (Manual) Basophils % (Manual) Seg Neutrophils # Seg Neutrophils # Man Lymphocytes # (Manual) Monocytes # (Manual) Eosinophils # (Manual) Nucleated RBC % Basophils # (Manual) APTT Heparin Anti-Xa Level ABG pH POC ABG pO2 ABG pO2 ABG HCO3 ABG O2 Saturation ABG Base Excess POC ABG pCO2 ABG Hemoglobin ABG Oxyhemoglobin Oxyhemoglobin Sodium 146 H Potassium Chloride Carbon Dioxide BUN 28 H Creatinine Glucose 123 H POC Glucose 110 H 152 H Lactic Acid Calcium Phosphorus Magnesium AST ALT Lactate Dehydrogenase CK-MB (CK-2) C-Reactive Protein NT-Pro-B Natriuret Pep Total Protein Albumin Urine WBC (Auto) 12/02/19 12/02/19 12/02/19 12:58 17:58 23:36 WBC RBC Hgb Hct MCHC RDW MCH Lymph % (Auto) [place] % (Auto) [place] # Eos # Lymph # (Auto) [place] # (Auto) Eos # (Auto) Seg Neutrophils % Seg Neuts % (Manual) Baso # (Auto) Lymphocytes % (Manual) Monocytes % (Manual) Eosinophils % (Manual) Basophils % (Manual) Seg Neutrophils # Seg Neutrophils # Man Lymphocytes # (Manual) Monocytes # (Manual) Eosinophils # (Manual) Nucleated RBC % Basophils # (Manual) APTT Heparin Anti-Xa Level ABG pH POC ABG pO2 78.1 L ABG pO2 ABG HCO3 ABG O2 Saturation ABG Base Excess POC ABG pCO2 ABG Hemoglobin ABG Oxyhemoglobin Oxyhemoglobin Sodium Potassium Chloride Carbon Dioxide BUN Creatinine Glucose POC Glucose 120 H 123 H Lactic Acid Calcium Phosphorus Magnesium AST ALT Lactate Dehydrogenase CK-MB (CK-2) C-Reactive Protein NT-Pro-B Natriuret Pep Total Protein Albumin Urine WBC (Auto) 12/03/19 12/03/19 12/03/19 06:03 06:14 11:46 WBC RBC Hgb Hct MCHC RDW MCH Lymph % (Auto) [place] % (Auto) [place] # Eos # Lymph # (Auto) [place] # (Auto) Eos # (Auto) Seg Neutrophils % Seg Neuts % (Manual) Baso # (Auto) Lymphocytes % (Manual) Monocytes % (Manual) Eosinophils % (Manual) Basophils % (Manual) Seg Neutrophils # Seg Neutrophils # Man Lymphocytes # (Manual) Monocytes # (Manual) Eosinophils # (Manual) Nucleated RBC % Basophils # (Manual) APTT Heparin Anti-Xa Level ABG pH POC ABG pO2 ABG pO2 ABG HCO3 ABG O2 Saturation ABG Base Excess POC ABG pCO2 ABG Hemoglobin ABG Oxyhemoglobin Oxyhemoglobin Sodium Potassium Chloride Carbon Dioxide BUN Creatinine Glucose POC Glucose 142 H 130 H Lactic Acid Calcium Phosphorus Magnesium AST ALT Lactate Dehydrogenase CK-MB (CK-2) C-Reactive Protein NT-Pro-B Natriuret Pep Total Protein Albumin Urine WBC (Auto) 8.0 H 12/03/19 12/03/19 12/04/19 15:50 17:39 00:04 WBC RBC Hgb Hct MCHC RDW MCH Lymph % (Auto) [place] % (Auto) [place] # Eos # Lymph # (Auto) [place] # (Auto) Eos # (Auto) Seg Neutrophils % Seg Neuts % (Manual) Baso # (Auto) Lymphocytes % (Manual) Monocytes % (Manual) Eosinophils % (Manual) Basophils % (Manual) Seg Neutrophils # Seg Neutrophils # Man Lymphocytes # (Manual) Monocytes # (Manual) Eosinophils # (Manual) Nucleated RBC % Basophils # (Manual) APTT Heparin Anti-Xa Level ABG pH POC ABG pO2 ABG pO2 ABG HCO3 ABG O2 Saturation ABG Base Excess POC ABG pCO2 ABG Hemoglobin ABG Oxyhemoglobin Oxyhemoglobin Sodium Potassium Chloride Carbon Dioxide BUN Creatinine Glucose POC Glucose 146 H 133 H Lactic Acid Calcium Phosphorus 2.40 L Magnesium AST ALT Lactate Dehydrogenase CK-MB (CK-2) C-Reactive Protein NT-Pro-B Natriuret Pep Total Protein Albumin Urine WBC (Auto) 12/04/19 12/04/19 12/04/19 03:58 03:58 05:22 WBC 12.5 H RBC Hgb 11.2 L Hct 35.2 L MCHC RDW 16.0 H MCH Lymph % (Auto) [place] % (Auto) 9.6 H [place] # 1.2 H Eos # 0.5 H Lymph # (Auto) [place] # (Auto) Eos # (Auto) Seg Neutrophils % Seg Neuts % (Manual) Baso # (Auto) Lymphocytes % (Manual) Monocytes % (Manual) Eosinophils % (Manual) Basophils % (Manual) Seg Neutrophils # 8.6 H Seg Neutrophils # Man Lymphocytes # (Manual) Monocytes # (Manual) Eosinophils # (Manual) Nucleated RBC % Basophils # (Manual) APTT Heparin Anti-Xa Level ABG pH POC ABG pO2 ABG pO2 ABG HCO3 ABG O2 Saturation ABG Base Excess POC ABG pCO2 ABG Hemoglobin ABG Oxyhemoglobin Oxyhemoglobin Sodium 146 H Potassium Chloride 108.6 H Carbon Dioxide BUN 30 H Creatinine 0.7 L Glucose 121 H POC Glucose 132 H Lactic Acid Calcium Phosphorus Magnesium AST ALT Lactate Dehydrogenase CK-MB (CK-2) C-Reactive Protein NT-Pro-B Natriuret Pep Total Protein Albumin Urine WBC (Auto) 12/04/19 12/04/19 12/05/19 13:26 18:43 00:19 WBC RBC Hgb Hct MCHC RDW MCH Lymph % (Auto) [place] % (Auto) [place] # Eos # Lymph # (Auto) [place] # (Auto) Eos # (Auto) Seg Neutrophils % Seg Neuts % (Manual) Baso # (Auto) Lymphocytes % (Manual) Monocytes % (Manual) Eosinophils % (Manual) Basophils % (Manual) Seg Neutrophils # Seg Neutrophils # Man Lymphocytes # (Manual) Monocytes # (Manual) Eosinophils # (Manual) Nucleated RBC % Basophils # (Manual) APTT Heparin Anti-Xa Level ABG pH POC ABG pO2 ABG pO2 ABG HCO3 ABG O2 Saturation ABG Base Excess POC ABG pCO2 ABG Hemoglobin ABG Oxyhemoglobin Oxyhemoglobin Sodium Potassium Chloride Carbon Dioxide BUN Creatinine Glucose POC Glucose 185 H 156 H 150 H Lactic Acid Calcium Phosphorus Magnesium AST ALT Lactate Dehydrogenase CK-MB (CK-2) C-Reactive Protein NT-Pro-B Natriuret Pep Total Protein Albumin Urine WBC (Auto) 12/05/19 12/05/19 12/05/19 03:37 03:37 05:14 WBC 16.3 H RBC Hgb 11.4 L Hct MCHC RDW 15.6 H MCH Lymph % (Auto) 9.9 L [place] % (Auto) 9.7 H [place] # 1.6 H Eos # Lymph # (Auto) [place] # (Auto) Eos # (Auto) Seg Neutrophils % 78.0 H Seg Neuts % (Manual) Baso # (Auto) Lymphocytes % (Manual) Monocytes % (Manual) Eosinophils % (Manual) Basophils % (Manual) Seg Neutrophils # 12.7 H Seg Neutrophils # Man Lymphocytes # (Manual) Monocytes # (Manual) Eosinophils # (Manual) Nucleated RBC % Basophils # (Manual) APTT Heparin Anti-Xa Level ABG pH POC ABG pO2 ABG pO2 ABG HCO3 ABG O2 Saturation ABG Base Excess POC ABG pCO2 ABG Hemoglobin ABG Oxyhemoglobin Oxyhemoglobin Sodium 146 H Potassium Chloride 107.2 H Carbon Dioxide BUN 27 H Creatinine 0.7 L Glucose 171 H POC Glucose 168 H Lactic Acid Calcium Phosphorus Magnesium AST ALT Lactate Dehydrogenase CK-MB (CK-2) C-Reactive Protein NT-Pro-B Natriuret Pep Total Protein Albumin Urine WBC (Auto) 12/05/19 12/05/19 12/05/19 12:31 18:10 23:58 WBC RBC Hgb Hct MCHC RDW MCH Lymph % (Auto) [place] % (Auto) [place] # Eos # Lymph # (Auto) [place] # (Auto) Eos # (Auto) Seg Neutrophils % Seg Neuts % (Manual) Baso # (Auto) Lymphocytes % (Manual) Monocytes % (Manual) Eosinophils % (Manual) Basophils % (Manual) Seg Neutrophils # Seg Neutrophils # Man Lymphocytes # (Manual) Monocytes # (Manual) Eosinophils # (Manual) Nucleated RBC % Basophils # (Manual) APTT Heparin Anti-Xa Level ABG pH POC ABG pO2 ABG pO2 ABG HCO3 ABG O2 Saturation ABG Base Excess POC ABG pCO2 ABG Hemoglobin ABG Oxyhemoglobin Oxyhemoglobin Sodium Potassium Chloride Carbon Dioxide BUN Creatinine Glucose POC Glucose 159 H 198 H 115 H Lactic Acid Calcium Phosphorus Magnesium AST ALT Lactate Dehydrogenase CK-MB (CK-2) C-Reactive Protein NT-Pro-B Natriuret Pep Total Protein Albumin Urine WBC (Auto) 12/06/19 12/06/19 12/06/19 05:24 05:24 05:25 WBC 14.9 H RBC Hgb 10.8 L Hct 34.0 L MCHC RDW 15.6 H MCH Lymph % (Auto) 10.7 L [place] % (Auto) 8.3 H [place] # 1.2 H Eos # Lymph # (Auto) [place] # (Auto) Eos # (Auto) Seg Neutrophils % 78.7 H Seg Neuts % (Manual) Baso # (Auto) Lymphocytes % (Manual) Monocytes % (Manual) Eosinophils % (Manual) Basophils % (Manual) Seg Neutrophils # 11.7 H Seg Neutrophils # Man Lymphocytes # (Manual) Monocytes # (Manual) Eosinophils # (Manual) Nucleated RBC % Basophils # (Manual) APTT Heparin Anti-Xa Level ABG pH POC ABG pO2 ABG pO2 ABG HCO3 ABG O2 Saturation ABG Base Excess POC ABG pCO2 ABG Hemoglobin ABG Oxyhemoglobin Oxyhemoglobin Sodium 148 H Potassium 5.1 H Chloride 107.6 H Carbon Dioxide BUN 27 H Creatinine 0.7 L Glucose 155 H POC Glucose 157 H Lactic Acid Calcium Phosphorus Magnesium AST ALT Lactate Dehydrogenase CK-MB (CK-2) C-Reactive Protein NT-Pro-B Natriuret Pep Total Protein Albumin Urine WBC (Auto) 12/07/19 12/07/19 12/07/19 00:13 05:34 11:33 WBC RBC Hgb Hct MCHC RDW MCH Lymph % (Auto) [place] % (Auto) [place] # Eos # Lymph # (Auto) [place] # (Auto) Eos # (Auto) Seg Neutrophils % Seg Neuts % (Manual) Baso # (Auto) Lymphocytes % (Manual) Monocytes % (Manual) Eosinophils % (Manual) Basophils % (Manual) Seg Neutrophils # Seg Neutrophils # Man Lymphocytes # (Manual) Monocytes # (Manual) Eosinophils # (Manual) Nucleated RBC % Basophils # (Manual) APTT Heparin Anti-Xa Level ABG pH POC ABG pO2 ABG pO2 ABG HCO3 ABG O2 Saturation ABG Base Excess POC ABG pCO2 ABG Hemoglobin ABG Oxyhemoglobin Oxyhemoglobin Sodium Potassium Chloride Carbon Dioxide BUN Creatinine Glucose POC Glucose 142 H 111 H 169 H Lactic Acid Calcium Phosphorus Magnesium AST ALT Lactate Dehydrogenase CK-MB (CK-2) C-Reactive Protein NT-Pro-B Natriuret Pep Total Protein Albumin Urine WBC (Auto) 12/07/19 12/07/19 12/07/19 12:41 13:25 18:19 WBC 12.4 H RBC 3.53 L Hgb 10.2 L Hct 32.1 L MCHC RDW 15.3 H MCH Lymph % (Auto) 10.6 L [place] % (Auto) 7.8 H [place] # 1.0 H Eos # Lymph # (Auto) [place] # (Auto) Eos # (Auto) Seg Neutrophils % 77.6 H Seg Neuts % (Manual) Baso # (Auto) Lymphocytes % (Manual) Monocytes % (Manual) Eosinophils % (Manual) Basophils % (Manual) Seg Neutrophils # 9.6 H Seg Neutrophils # Man Lymphocytes # (Manual) Monocytes # (Manual) Eosinophils # (Manual) Nucleated RBC % Basophils # (Manual) APTT Heparin Anti-Xa Level ABG pH POC ABG pO2 ABG pO2 ABG HCO3 ABG O2 Saturation ABG Base Excess POC ABG pCO2 ABG Hemoglobin ABG Oxyhemoglobin Oxyhemoglobin Sodium 149 H Potassium Chloride 108.4 H Carbon Dioxide BUN 26 H Creatinine 0.6 L Glucose 149 H POC Glucose 164 H Lactic Acid Calcium Phosphorus Magnesium 2.60 H AST 121 H ALT 145 H Lactate Dehydrogenase CK-MB (CK-2) C-Reactive Protein NT-Pro-B Natriuret Pep Total Protein Albumin 2.6 L Urine WBC (Auto) 12/07/19 12/08/19 12/08/19 22:25 00:02 03:55 WBC 13.3 H RBC 3.40 L Hgb 9.7 L Hct 30.8 L MCHC 31 L RDW 15.5 H MCH Lymph % (Auto) [place] % (Auto) 8.1 H [place] # 1.1 H Eos # Lymph # (Auto) [place] # (Auto) Eos # (Auto) Seg Neutrophils % 73.0 H Seg Neuts % (Manual) Baso # (Auto) Lymphocytes % (Manual) Monocytes % (Manual) Eosinophils % (Manual) Basophils % (Manual) Seg Neutrophils # 9.7 H Seg Neutrophils # Man Lymphocytes # (Manual) Monocytes # (Manual) Eosinophils # (Manual) Nucleated RBC % Basophils # (Manual) APTT Heparin Anti-Xa Level 0.12 L ABG pH POC ABG pO2 ABG pO2 ABG HCO3 ABG O2 Saturation ABG Base Excess POC ABG pCO2 ABG Hemoglobin ABG Oxyhemoglobin Oxyhemoglobin Sodium Potassium Chloride Carbon Dioxide BUN Creatinine Glucose POC Glucose 151 H Lactic Acid Calcium Phosphorus Magnesium AST ALT Lactate Dehydrogenase CK-MB (CK-2) C-Reactive Protein NT-Pro-B Natriuret Pep Total Protein Albumin Urine WBC (Auto) 12/08/19 12/08/19 12/08/19 03:55 05:21 06:01 WBC RBC Hgb Hct MCHC RDW MCH Lymph % (Auto) [place] % (Auto) [place] # Eos # Lymph # (Auto) [place] # (Auto) Eos # (Auto) Seg Neutrophils % Seg Neuts % (Manual) Baso # (Auto) Lymphocytes % (Manual) Monocytes % (Manual) Eosinophils % (Manual) Basophils % (Manual) Seg Neutrophils # Seg Neutrophils # Man Lymphocytes # (Manual) Monocytes # (Manual) Eosinophils # (Manual) Nucleated RBC % Basophils # (Manual) APTT Heparin Anti-Xa Level 0.20 L ABG pH POC ABG pO2 ABG pO2 ABG HCO3 ABG O2 Saturation ABG Base Excess POC ABG pCO2 ABG Hemoglobin ABG Oxyhemoglobin Oxyhemoglobin Sodium 149 H Potassium Chloride 108.0 H Carbon Dioxide BUN 28 H Creatinine 0.6 L Glucose 144 H POC Glucose 143 H Lactic Acid Calcium Phosphorus Magnesium AST 98 H ALT 145 H Lactate Dehydrogenase CK-MB (CK-2) C-Reactive Protein NT-Pro-B Natriuret Pep Total Protein 6.0 L Albumin 2.4 L Urine WBC (Auto) 12/08/19 12/08/19 12/08/19 12:08 18:11 23:53 WBC RBC Hgb Hct MCHC RDW MCH Lymph % (Auto) [place] % (Auto) [place] # Eos # Lymph # (Auto) [place] # (Auto) Eos # (Auto) Seg Neutrophils % Seg Neuts % (Manual) Baso # (Auto) Lymphocytes % (Manual) Monocytes % (Manual) Eosinophils % (Manual) Basophils % (Manual) Seg Neutrophils # Seg Neutrophils # Man Lymphocytes # (Manual) Monocytes # (Manual) Eosinophils # (Manual) Nucleated RBC % Basophils # (Manual) APTT Heparin Anti-Xa Level ABG pH POC ABG pO2 ABG pO2 ABG HCO3 ABG O2 Saturation ABG Base Excess POC ABG pCO2 ABG Hemoglobin ABG Oxyhemoglobin Oxyhemoglobin Sodium Potassium Chloride Carbon Dioxide BUN Creatinine Glucose POC Glucose 172 H 122 H 162 H Lactic Acid Calcium Phosphorus Magnesium AST ALT Lactate Dehydrogenase CK-MB (CK-2) C-Reactive Protein NT-Pro-B Natriuret Pep Total Protein Albumin Urine WBC (Auto) 12/09/19 12/09/19 12/09/19 04:03 04:03 05:53 WBC RBC Hgb 9.1 L Hct 28.9 L MCHC RDW MCH Lymph % (Auto) [place] % (Auto) [place] # Eos # Lymph # (Auto) [place] # (Auto) Eos # (Auto) Seg Neutrophils % Seg Neuts % (Manual) Baso # (Auto) Lymphocytes % (Manual) Monocytes % (Manual) Eosinophils % (Manual) Basophils % (Manual) Seg Neutrophils # Seg Neutrophils # Man Lymphocytes # (Manual) Monocytes # (Manual) Eosinophils # (Manual) Nucleated RBC % Basophils # (Manual) APTT Heparin Anti-Xa Level 0.15 L ABG pH POC ABG pO2 ABG pO2 ABG HCO3 ABG O2 Saturation ABG Base Excess POC ABG pCO2 ABG Hemoglobin ABG Oxyhemoglobin Oxyhemoglobin Sodium Potassium Chloride Carbon Dioxide BUN Creatinine Glucose POC Glucose 124 H Lactic Acid Calcium Phosphorus Magnesium AST ALT Lactate Dehydrogenase CK-MB (CK-2) C-Reactive Protein NT-Pro-B Natriuret Pep Total Protein Albumin Urine WBC (Auto) 12/09/19 12/09/19 12/10/19 09:43 12:41 00:13 WBC RBC Hgb Hct MCHC RDW MCH Lymph % (Auto) [place] % (Auto) [place] # Eos # Lymph # (Auto) [place] # (Auto) Eos # (Auto) Seg Neutrophils % Seg Neuts % (Manual) Baso # (Auto) Lymphocytes % (Manual) Monocytes % (Manual) Eosinophils % (Manual) Basophils % (Manual) Seg Neutrophils # Seg Neutrophils # Man Lymphocytes # (Manual) Monocytes # (Manual) Eosinophils # (Manual) Nucleated RBC % Basophils # (Manual) APTT Heparin Anti-Xa Level ABG pH POC ABG pO2 ABG pO2 ABG HCO3 ABG O2 Saturation ABG Base Excess POC ABG pCO2 ABG Hemoglobin ABG Oxyhemoglobin Oxyhemoglobin Sodium Potassium Chloride Carbon Dioxide BUN 25 H Creatinine 0.6 L Glucose 131 H POC Glucose 109 H 120 H Lactic Acid Calcium Phosphorus Magnesium AST ALT Lactate Dehydrogenase CK-MB (CK-2) C-Reactive Protein NT-Pro-B Natriuret Pep Total Protein Albumin Urine WBC (Auto) 12/10/19 12/10/19 12/10/19 04:14 04:14 12:00 WBC 13.3 H RBC 3.34 L Hgb 9.6 L Hct 30.4 L MCHC RDW 15.4 H MCH Lymph % (Auto) [place] % (Auto) [place] # Eos # Lymph # (Auto) [place] # (Auto) Eos # (Auto) Seg Neutrophils % Seg Neuts % (Manual) 75.0 H Baso # (Auto) Lymphocytes % (Manual) 13.0 L Monocytes % (Manual) 8.0 H Eosinophils % (Manual) Basophils % (Manual) 2.0 H Seg Neutrophils # Seg Neutrophils # Man 10.0 H Lymphocytes # (Manual) Monocytes # (Manual) 1.1 H Eosinophils # (Manual) Nucleated RBC % Basophils # (Manual) 0.3 H APTT Heparin Anti-Xa Level ABG pH POC ABG pO2 ABG pO2 ABG HCO3 ABG O2 Saturation ABG Base Excess POC ABG pCO2 ABG Hemoglobin ABG Oxyhemoglobin Oxyhemoglobin Sodium 147 H Potassium Chloride 108.3 H Carbon Dioxide BUN 21 H Creatinine 0.6 L Glucose 104 H POC Glucose 133 H Lactic Acid Calcium Phosphorus Magnesium AST ALT Lactate Dehydrogenase CK-MB (CK-2) C-Reactive Protein NT-Pro-B Natriuret Pep Total Protein Albumin Urine WBC (Auto) 12/10/19 12/10/19 12/11/19 18:44 21:20 00:08 WBC 14.9 H RBC 3.36 L Hgb 9.6 L Hct 30.5 L MCHC RDW 15.4 H MCH Lymph % (Auto) [place] % (Auto) [place] # Eos # Lymph # (Auto) [place] # (Auto) Eos # (Auto) Seg Neutrophils % Seg Neuts % (Manual) Baso # (Auto) Lymphocytes % (Manual) Monocytes % (Manual) Eosinophils % (Manual) Basophils % (Manual) Seg Neutrophils # Seg Neutrophils # Man Lymphocytes # (Manual) Monocytes # (Manual) Eosinophils # (Manual) Nucleated RBC % Basophils # (Manual) APTT Heparin Anti-Xa Level ABG pH POC ABG pO2 ABG pO2 ABG HCO3 ABG O2 Saturation ABG Base Excess POC ABG pCO2 ABG Hemoglobin ABG Oxyhemoglobin Oxyhemoglobin Sodium Potassium Chloride Carbon Dioxide BUN Creatinine Glucose POC Glucose 119 H 134 H Lactic Acid Calcium Phosphorus Magnesium AST ALT Lactate Dehydrogenase CK-MB (CK-2) C-Reactive Protein NT-Pro-B Natriuret Pep Total Protein Albumin Urine WBC (Auto) 12/11/19 12/11/19 12/11/19 03:54 07:28 08:36 WBC 11.9 H RBC 3.25 L Hgb 9.6 L Hct 29.2 L MCHC RDW 15.7 H MCH Lymph % (Auto) [place] % (Auto) [place] # Eos # Lymph # (Auto) [place] # (Auto) Eos # (Auto) Seg Neutrophils % Seg Neuts % (Manual) Baso # (Auto) Lymphocytes % (Manual) Monocytes % (Manual) Eosinophils % (Manual) Basophils % (Manual) Seg Neutrophils # Seg Neutrophils # Man Lymphocytes # (Manual) Monocytes # (Manual) Eosinophils # (Manual) Nucleated RBC % Basophils # (Manual) APTT Heparin Anti-Xa Level 0.10 L 0.16 L ABG pH POC ABG pO2 ABG pO2 ABG HCO3 ABG O2 Saturation ABG Base Excess POC ABG pCO2 ABG Hemoglobin ABG Oxyhemoglobin Oxyhemoglobin Sodium Potassium Chloride Carbon Dioxide BUN Creatinine Glucose POC Glucose Lactic Acid Calcium Phosphorus Magnesium AST ALT Lactate Dehydrogenase CK-MB (CK-2) C-Reactive Protein NT-Pro-B Natriuret Pep Total Protein Albumin Urine WBC (Auto) 12/11/19 12/11/19 12/11/19 08:36 11:45 17:15 WBC RBC Hgb Hct MCHC RDW MCH Lymph % (Auto) [place] % (Auto) [place] # Eos # Lymph # (Auto) [place] # (Auto) Eos # (Auto) Seg Neutrophils % Seg Neuts % (Manual) Baso # (Auto) Lymphocytes % (Manual) Monocytes % (Manual) Eosinophils % (Manual) Basophils % (Manual) Seg Neutrophils # Seg Neutrophils # Man Lymphocytes # (Manual) Monocytes # (Manual) Eosinophils # (Manual) Nucleated RBC % Basophils # (Manual) APTT Heparin Anti-Xa Level ABG pH POC ABG pO2 ABG pO2 ABG HCO3 ABG O2 Saturation ABG Base Excess POC ABG pCO2 ABG Hemoglobin ABG Oxyhemoglobin Oxyhemoglobin Sodium Potassium Chloride Carbon Dioxide BUN Creatinine 0.5 L Glucose 128 H POC Glucose 136 H 109 H Lactic Acid Calcium Phosphorus Magnesium AST ALT Lactate Dehydrogenase CK-MB (CK-2) C-Reactive Protein NT-Pro-B Natriuret Pep Total Protein Albumin Urine WBC (Auto) 12/12/19 12/12/19 12/12/19 00:03 05:53 05:53 WBC RBC Hgb 8.8 L Hct 27.6 L MCHC RDW MCH Lymph % (Auto) [place] % (Auto) [place] # Eos # Lymph # (Auto) [place] # (Auto) Eos # (Auto) Seg Neutrophils % Seg Neuts % (Manual) Baso # (Auto) Lymphocytes % (Manual) Monocytes % (Manual) Eosinophils % (Manual) Basophils % (Manual) Seg Neutrophils # Seg Neutrophils # Man Lymphocytes # (Manual) Monocytes # (Manual) Eosinophils # (Manual) Nucleated RBC % Basophils # (Manual) APTT Heparin Anti-Xa Level 0.22 L ABG pH POC ABG pO2 ABG pO2 ABG HCO3 ABG O2 Saturation ABG Base Excess POC ABG pCO2 ABG Hemoglobin ABG Oxyhemoglobin Oxyhemoglobin Sodium Potassium Chloride Carbon Dioxide BUN Creatinine Glucose POC Glucose 116 H Lactic Acid Calcium Phosphorus Magnesium AST ALT Lactate Dehydrogenase CK-MB (CK-2) C-Reactive Protein NT-Pro-B Natriuret Pep Total Protein Albumin Urine WBC (Auto) 12/12/19 12/12/19 12/12/19 09:38 12:18 17:44 WBC RBC Hgb Hct MCHC RDW MCH Lymph % (Auto) [place] % (Auto) [place] # Eos # Lymph # (Auto) [place] # (Auto) Eos # (Auto) Seg Neutrophils % Seg Neuts % (Manual) Baso # (Auto) Lymphocytes % (Manual) Monocytes % (Manual) Eosinophils % (Manual) Basophils % (Manual) Seg Neutrophils # Seg Neutrophils # Man Lymphocytes # (Manual) Monocytes # (Manual) Eosinophils # (Manual) Nucleated RBC % Basophils # (Manual) APTT Heparin Anti-Xa Level ABG pH POC ABG pO2 ABG pO2 ABG HCO3 ABG O2 Saturation ABG Base Excess POC ABG pCO2 ABG Hemoglobin ABG Oxyhemoglobin Oxyhemoglobin Sodium Potassium Chloride Carbon Dioxide BUN Creatinine Glucose POC Glucose 115 H 146 H 146 H Lactic Acid Calcium Phosphorus Magnesium AST ALT Lactate Dehydrogenase CK-MB (CK-2) C-Reactive Protein NT-Pro-B Natriuret Pep Total Protein Albumin Urine WBC (Auto) 12/12/19 12/13/19 12/13/19 23:33 05:32 05:32 WBC 13.1 H RBC 3.27 L Hgb 9.5 L Hct 29.3 L MCHC RDW 15.6 H MCH Lymph % (Auto) [place] % (Auto) [place] # Eos # Lymph # (Auto) [place] # (Auto) Eos # (Auto) Seg Neutrophils % Seg Neuts % (Manual) 74.0 H Baso # (Auto) Lymphocytes % (Manual) 8.0 L Monocytes % (Manual) 9.0 H Eosinophils % (Manual) 5.0 H Basophils % (Manual) Seg Neutrophils # Seg Neutrophils # Man 9.7 H Lymphocytes # (Manual) 1.0 L Monocytes # (Manual) 1.2 H Eosinophils # (Manual) 0.7 H Nucleated RBC % Basophils # (Manual) APTT Heparin Anti-Xa Level 0.20 L ABG pH POC ABG pO2 ABG pO2 ABG HCO3 ABG O2 Saturation ABG Base Excess POC ABG pCO2 ABG Hemoglobin ABG Oxyhemoglobin Oxyhemoglobin Sodium Potassium Chloride Carbon Dioxide BUN Creatinine Glucose POC Glucose 126 H Lactic Acid Calcium Phosphorus Magnesium AST ALT Lactate Dehydrogenase CK-MB (CK-2) C-Reactive Protein NT-Pro-B Natriuret Pep Total Protein Albumin Urine WBC (Auto) 12/13/19 12/13/19 12/13/19 05:32 05:46 11:57 WBC RBC Hgb Hct MCHC RDW MCH Lymph % (Auto) [place] % (Auto) [place] # Eos # Lymph # (Auto) [place] # (Auto) Eos # (Auto) Seg Neutrophils % Seg Neuts % (Manual) Baso # (Auto) Lymphocytes % (Manual) Monocytes % (Manual) Eosinophils % (Manual) Basophils % (Manual) Seg Neutrophils # Seg Neutrophils # Man Lymphocytes # (Manual) Monocytes # (Manual) Eosinophils # (Manual) Nucleated RBC % Basophils # (Manual) APTT Heparin Anti-Xa Level ABG pH POC ABG pO2 ABG pO2 ABG HCO3 ABG O2 Saturation ABG Base Excess POC ABG pCO2 ABG Hemoglobin ABG Oxyhemoglobin Oxyhemoglobin Sodium Potassium Chloride Carbon Dioxide 31 H BUN Creatinine 0.6 L Glucose 114 H POC Glucose 118 H 133 H Lactic Acid Calcium Phosphorus Magnesium AST ALT Lactate Dehydrogenase CK-MB (CK-2) C-Reactive Protein NT-Pro-B Natriuret Pep Total Protein Albumin Urine WBC (Auto) 12/13/19 12/13/19 12/14/19 17:44 23:46 05:32 WBC RBC Hgb Hct MCHC RDW MCH Lymph % (Auto) [place] % (Auto) [place] # Eos # Lymph # (Auto) [place] # (Auto) Eos # (Auto) Seg Neutrophils % Seg Neuts % (Manual) Baso # (Auto) Lymphocytes % (Manual) Monocytes % (Manual) Eosinophils % (Manual) Basophils % (Manual) Seg Neutrophils # Seg Neutrophils # Man Lymphocytes # (Manual) Monocytes # (Manual) Eosinophils # (Manual) Nucleated RBC % Basophils # (Manual) APTT Heparin Anti-Xa Level ABG pH POC ABG pO2 ABG pO2 ABG HCO3 ABG O2 Saturation ABG Base Excess POC ABG pCO2 ABG Hemoglobin ABG Oxyhemoglobin Oxyhemoglobin Sodium Potassium Chloride Carbon Dioxide BUN Creatinine Glucose POC Glucose 161 H 126 H 139 H Lactic Acid Calcium Phosphorus Magnesium AST ALT Lactate Dehydrogenase CK-MB (CK-2) C-Reactive Protein NT-Pro-B Natriuret Pep Total Protein Albumin Urine WBC (Auto) 12/14/19 12/14/19 12/14/19 06:03 06:03 09:37 WBC RBC Hgb 9.6 L Hct 30.4 L MCHC RDW MCH Lymph % (Auto) [place] % (Auto) [place] # Eos # Lymph # (Auto) [place] # (Auto) Eos # (Auto) Seg Neutrophils % Seg Neuts % (Manual) Baso # (Auto) Lymphocytes % (Manual) Monocytes % (Manual) Eosinophils % (Manual) Basophils % (Manual) Seg Neutrophils # Seg Neutrophils # Man Lymphocytes # (Manual) Monocytes # (Manual) Eosinophils # (Manual) Nucleated RBC % Basophils # (Manual) APTT Heparin Anti-Xa Level 0.24 L ABG pH POC ABG pO2 ABG pO2 ABG HCO3 ABG O2 Saturation ABG Base Excess POC ABG pCO2 ABG Hemoglobin ABG Oxyhemoglobin Oxyhemoglobin Sodium Potassium Chloride Carbon Dioxide BUN Creatinine 0.6 L Glucose 162 H POC Glucose Lactic Acid Calcium Phosphorus Magnesium AST 71 H ALT 118 H Lactate Dehydrogenase CK-MB (CK-2) C-Reactive Protein NT-Pro-B Natriuret Pep Total Protein 6.2 L Albumin 2.3 L Urine WBC (Auto) 12/14/19 12/14/19 12/15/19 12:06 18:18 00:19 WBC RBC Hgb Hct MCHC RDW MCH Lymph % (Auto) [place] % (Auto) [place] # Eos # Lymph # (Auto) [place] # (Auto) Eos # (Auto) Seg Neutrophils % Seg Neuts % (Manual) Baso # (Auto) Lymphocytes % (Manual) Monocytes % (Manual) Eosinophils % (Manual) Basophils % (Manual) Seg Neutrophils # Seg Neutrophils # Man Lymphocytes # (Manual) Monocytes # (Manual) Eosinophils # (Manual) Nucleated RBC % Basophils # (Manual) APTT Heparin Anti-Xa Level ABG pH POC ABG pO2 ABG pO2 ABG HCO3 ABG O2 Saturation ABG Base Excess POC ABG pCO2 ABG Hemoglobin ABG Oxyhemoglobin Oxyhemoglobin Sodium Potassium Chloride Carbon Dioxide BUN Creatinine Glucose POC Glucose 147 H 166 H 123 H Lactic Acid Calcium Phosphorus Magnesium AST ALT Lactate Dehydrogenase CK-MB (CK-2) C-Reactive Protein NT-Pro-B Natriuret Pep Total Protein Albumin Urine WBC (Auto) 12/15/19 12/15/19 12/15/19 05:28 05:29 05:29 WBC 14.9 H RBC 3.19 L Hgb 9.1 L Hct 28.7 L MCHC RDW 16.0 H MCH Lymph % (Auto) [place] % (Auto) [place] # Eos # Lymph # (Auto) [place] # (Auto) Eos # (Auto) Seg Neutrophils % Seg Neuts % (Manual) Baso # (Auto) Lymphocytes % (Manual) Monocytes % (Manual) Eosinophils % (Manual) Basophils % (Manual) Seg Neutrophils # Seg Neutrophils # Man Lymphocytes # (Manual) Monocytes # (Manual) Eosinophils # (Manual) Nucleated RBC % Basophils # (Manual) APTT Heparin Anti-Xa Level 0.19 L ABG pH POC ABG pO2 ABG pO2 ABG HCO3 ABG O2 Saturation ABG Base Excess POC ABG pCO2 ABG Hemoglobin ABG Oxyhemoglobin Oxyhemoglobin Sodium Potassium Chloride Carbon Dioxide BUN Creatinine 0.6 L Glucose 110 H POC Glucose Lactic Acid Calcium Phosphorus Magnesium AST ALT Lactate Dehydrogenase CK-MB (CK-2) C-Reactive Protein NT-Pro-B Natriuret Pep Total Protein Albumin Urine WBC (Auto) 12/15/19 12/15/19 12/15/19 05:53 11:50 17:26 WBC RBC Hgb Hct MCHC RDW MCH Lymph % (Auto) [place] % (Auto) [place] # Eos # Lymph # (Auto) [place] # (Auto) Eos # (Auto) Seg Neutrophils % Seg Neuts % (Manual) Baso # (Auto) Lymphocytes % (Manual) Monocytes % (Manual) Eosinophils % (Manual) Basophils % (Manual) Seg Neutrophils # Seg Neutrophils # Man Lymphocytes # (Manual) Monocytes # (Manual) Eosinophils # (Manual) Nucleated RBC % Basophils # (Manual) APTT Heparin Anti-Xa Level ABG pH POC ABG pO2 ABG pO2 ABG HCO3 ABG O2 Saturation ABG Base Excess POC ABG pCO2 ABG Hemoglobin ABG Oxyhemoglobin Oxyhemoglobin Sodium Potassium Chloride Carbon Dioxide BUN Creatinine Glucose POC Glucose 119 H 132 H 128 H Lactic Acid Calcium Phosphorus Magnesium AST ALT Lactate Dehydrogenase CK-MB (CK-2) C-Reactive Protein NT-Pro-B Natriuret Pep Total Protein Albumin Urine WBC (Auto) 12/15/19 12/16/19 12/16/19 23:11 05:30 05:46 WBC RBC Hgb 8.8 L Hct 27.9 L MCHC RDW MCH Lymph % (Auto) [place] % (Auto) [place] # Eos # Lymph # (Auto) [place] # (Auto) Eos # (Auto) Seg Neutrophils % Seg Neuts % (Manual) Baso # (Auto) Lymphocytes % (Manual) Monocytes % (Manual) Eosinophils % (Manual) Basophils % (Manual) Seg Neutrophils # Seg Neutrophils # Man Lymphocytes # (Manual) Monocytes # (Manual) Eosinophils # (Manual) Nucleated RBC % Basophils # (Manual) APTT Heparin Anti-Xa Level ABG pH POC ABG pO2 ABG pO2 ABG HCO3 ABG O2 Saturation ABG Base Excess POC ABG pCO2 ABG Hemoglobin ABG Oxyhemoglobin Oxyhemoglobin Sodium Potassium Chloride Carbon Dioxide BUN Creatinine Glucose POC Glucose 150 H 134 H Lactic Acid Calcium Phosphorus Magnesium AST ALT Lactate Dehydrogenase CK-MB (CK-2) C-Reactive Protein NT-Pro-B Natriuret Pep Total Protein Albumin Urine WBC (Auto) 12/16/19 12/16/19 12/16/19 05:46 05:46 11:44 WBC RBC Hgb Hct MCHC RDW MCH Lymph % (Auto) [place] % (Auto) [place] # Eos # Lymph # (Auto) [place] # (Auto) Eos # (Auto) Seg Neutrophils % Seg Neuts % (Manual) Baso # (Auto) Lymphocytes % (Manual) Monocytes % (Manual) Eosinophils % (Manual) Basophils % (Manual) Seg Neutrophils # Seg Neutrophils # Man Lymphocytes # (Manual) Monocytes # (Manual) Eosinophils # (Manual) Nucleated RBC % Basophils # (Manual) APTT Heparin Anti-Xa Level 0.20 L ABG pH POC ABG pO2 ABG pO2 ABG HCO3 ABG O2 Saturation ABG Base Excess POC ABG pCO2 ABG Hemoglobin ABG Oxyhemoglobin Oxyhemoglobin Sodium Potassium Chloride Carbon Dioxide 31 H BUN Creatinine 0.5 L Glucose 147 H POC Glucose 164 H Lactic Acid Calcium Phosphorus Magnesium AST ALT Lactate Dehydrogenase CK-MB (CK-2) C-Reactive Protein NT-Pro-B Natriuret Pep Total Protein Albumin Urine WBC (Auto) 12/16/19 12/16/19 12/17/19 17:17 23:49 05:30 WBC 13.9 H RBC 3.27 L Hgb 9.4 L Hct 29.2 L MCHC RDW 16.0 H MCH Lymph % (Auto) [place] % (Auto) 8.8 H [place] # Eos # Lymph # (Auto) [place] # (Auto) 1.2 H Eos # (Auto) 0.5 H Seg Neutrophils % 70.5 H Seg Neuts % (Manual) Baso # (Auto) 0.2 H Lymphocytes % (Manual) Monocytes % (Manual) Eosinophils % (Manual) Basophils % (Manual) Seg Neutrophils # 9.8 H Seg Neutrophils # Man Lymphocytes # (Manual) Monocytes # (Manual) Eosinophils # (Manual) Nucleated RBC % Basophils # (Manual) APTT Heparin Anti-Xa Level ABG pH POC ABG pO2 ABG pO2 ABG HCO3 ABG O2 Saturation ABG Base Excess POC ABG pCO2 ABG Hemoglobin ABG Oxyhemoglobin Oxyhemoglobin Sodium Potassium Chloride Carbon Dioxide BUN Creatinine Glucose POC Glucose 162 H 144 H Lactic Acid Calcium Phosphorus Magnesium AST ALT Lactate Dehydrogenase CK-MB (CK-2) C-Reactive Protein NT-Pro-B Natriuret Pep Total Protein Albumin Urine WBC (Auto) 12/17/19 12/17/19 12/17/19 05:30 06:06 11:50 WBC RBC Hgb Hct MCHC RDW MCH Lymph % (Auto) [place] % (Auto) [place] # Eos # Lymph # (Auto) [place] # (Auto) Eos # (Auto) Seg Neutrophils % Seg Neuts % (Manual) Baso # (Auto) Lymphocytes % (Manual) Monocytes % (Manual) Eosinophils % (Manual) Basophils % (Manual) Seg Neutrophils # Seg Neutrophils # Man Lymphocytes # (Manual) Monocytes # (Manual) Eosinophils # (Manual) Nucleated RBC % Basophils # (Manual) APTT Heparin Anti-Xa Level ABG pH POC ABG pO2 ABG pO2 ABG HCO3 ABG O2 Saturation ABG Base Excess POC ABG pCO2 ABG Hemoglobin ABG Oxyhemoglobin Oxyhemoglobin Sodium Potassium Chloride 97.4 L Carbon Dioxide 32 H BUN Creatinine 0.5 L Glucose 135 H POC Glucose 151 H 140 H Lactic Acid Calcium Phosphorus Magnesium AST ALT Lactate Dehydrogenase CK-MB (CK-2) C-Reactive Protein NT-Pro-B Natriuret Pep Total Protein Albumin Urine WBC (Auto) 12/17/19 12/17/19 12/18/19 17:50 23:46 05:17 WBC RBC Hgb 8.8 L Hct 28.0 L MCHC RDW MCH Lymph % (Auto) [place] % (Auto) [place] # Eos # Lymph # (Auto) [place] # (Auto) Eos # (Auto) Seg Neutrophils % Seg Neuts % (Manual) Baso # (Auto) Lymphocytes % (Manual) Monocytes % (Manual) Eosinophils % (Manual) Basophils % (Manual) Seg Neutrophils # Seg Neutrophils # Man Lymphocytes # (Manual) Monocytes # (Manual) Eosinophils # (Manual) Nucleated RBC % Basophils # (Manual) APTT Heparin Anti-Xa Level ABG pH POC ABG pO2 ABG pO2 ABG HCO3 ABG O2 Saturation ABG Base Excess POC ABG pCO2 ABG Hemoglobin ABG Oxyhemoglobin Oxyhemoglobin Sodium Potassium Chloride Carbon Dioxide BUN Creatinine Glucose POC Glucose 158 H 150 H Lactic Acid Calcium Phosphorus Magnesium AST ALT Lactate Dehydrogenase CK-MB (CK-2) C-Reactive Protein NT-Pro-B Natriuret Pep Total Protein Albumin Urine WBC (Auto) 12/18/19 12/18/19 12/18/19 05:17 05:49 11:12 WBC RBC Hgb Hct MCHC RDW MCH Lymph % (Auto) [place] % (Auto) [place] # Eos # Lymph # (Auto) [place] # (Auto) Eos # (Auto) Seg Neutrophils % Seg Neuts % (Manual) Baso # (Auto) Lymphocytes % (Manual) Monocytes % (Manual) Eosinophils % (Manual) Basophils % (Manual) Seg Neutrophils # Seg Neutrophils # Man Lymphocytes # (Manual) Monocytes # (Manual) Eosinophils # (Manual) Nucleated RBC % Basophils # (Manual) APTT Heparin Anti-Xa Level 0.16 L ABG pH POC ABG pO2 ABG pO2 ABG HCO3 ABG O2 Saturation ABG Base Excess POC ABG pCO2 ABG Hemoglobin ABG Oxyhemoglobin Oxyhemoglobin Sodium Potassium Chloride Carbon Dioxide BUN Creatinine Glucose POC Glucose 127 H 191 H Lactic Acid Calcium Phosphorus Magnesium AST ALT Lactate Dehydrogenase CK-MB (CK-2) C-Reactive Protein NT-Pro-B Natriuret Pep Total Protein Albumin Urine WBC (Auto) 12/18/19 12/18/19 12/19/19 17:03 20:16 00:08 WBC RBC Hgb Hct MCHC RDW MCH Lymph % (Auto) [place] % (Auto) [place] # Eos # Lymph # (Auto) [place] # (Auto) Eos # (Auto) Seg Neutrophils % Seg Neuts % (Manual) Baso # (Auto) Lymphocytes % (Manual) Monocytes % (Manual) Eosinophils % (Manual) Basophils % (Manual) Seg Neutrophils # Seg Neutrophils # Man Lymphocytes # (Manual) Monocytes # (Manual) Eosinophils # (Manual) Nucleated RBC % Basophils # (Manual) APTT Heparin Anti-Xa Level ABG pH POC ABG pO2 ABG pO2 ABG HCO3 ABG O2 Saturation ABG Base Excess POC ABG pCO2 ABG Hemoglobin ABG Oxyhemoglobin Oxyhemoglobin Sodium Potassium Chloride Carbon Dioxide BUN Creatinine Glucose POC Glucose 133 H 128 H 129 H Lactic Acid Calcium Phosphorus Magnesium AST ALT Lactate Dehydrogenase CK-MB (CK-2) C-Reactive Protein NT-Pro-B Natriuret Pep Total Protein Albumin Urine WBC (Auto) 12/19/19 12/19/19 12/19/19 04:45 04:45 05:35 WBC RBC Hgb Hct MCHC RDW MCH Lymph % (Auto) [place] % (Auto) [place] # Eos # Lymph # (Auto) [place] # (Auto) Eos # (Auto) Seg Neutrophils % Seg Neuts % (Manual) Baso # (Auto) Lymphocytes % (Manual) Monocytes % (Manual) Eosinophils % (Manual) Basophils % (Manual) Seg Neutrophils # Seg Neutrophils # Man Lymphocytes # (Manual) Monocytes # (Manual) Eosinophils # (Manual) Nucleated RBC % Basophils # (Manual) APTT Heparin Anti-Xa Level 0.17 L ABG pH POC ABG pO2 ABG pO2 ABG HCO3 ABG O2 Saturation ABG Base Excess POC ABG pCO2 ABG Hemoglobin ABG Oxyhemoglobin Oxyhemoglobin Sodium Potassium Chloride Carbon Dioxide BUN Creatinine Glucose POC Glucose 120 H Lactic Acid Calcium Phosphorus Magnesium AST ALT Lactate Dehydrogenase 228 H CK-MB (CK-2) C-Reactive Protein NT-Pro-B Natriuret Pep Total Protein Albumin Urine WBC (Auto) 12/19/19 12/19/19 12/19/19 09:20 11:32 11:32 WBC 14.6 H RBC 3.08 L Hgb 9.0 L Hct 26.8 L MCHC RDW 15.9 H MCH Lymph % (Auto) [place] % (Auto) [place] # Eos # Lymph # (Auto) [place] # (Auto) Eos # (Auto) Seg Neutrophils % Seg Neuts % (Manual) 82.0 H Baso # (Auto) Lymphocytes % (Manual) 10.0 L Monocytes % (Manual) Eosinophils % (Manual) Basophils % (Manual) Seg Neutrophils # Seg Neutrophils # Man 12.0 H Lymphocytes # (Manual) Monocytes # (Manual) 0.9 H Eosinophils # (Manual) Nucleated RBC % 1.0 H Basophils # (Manual) APTT Heparin Anti-Xa Level ABG pH 7.451 H POC ABG pO2 ABG pO2 62.6 L ABG HCO3 33.2 H ABG O2 Saturation 93.8 L ABG Base Excess 8.3 H POC ABG pCO2 ABG Hemoglobin 8.3 L ABG Oxyhemoglobin Oxyhemoglobin 91.9 L Sodium Potassium Chloride 95.0 L Carbon Dioxide 33 H BUN 22 H Creatinine 0.6 L Glucose 150 H POC Glucose Lactic Acid Calcium Phosphorus Magnesium AST ALT Lactate Dehydrogenase CK-MB (CK-2) C-Reactive Protein NT-Pro-B Natriuret Pep Total Protein 6.2 L Albumin 2.4 L Urine WBC (Auto) 12/19/19 12/19/19 12/20/19 11:56 18:17 00:09 WBC RBC Hgb Hct MCHC RDW MCH Lymph % (Auto) [place] % (Auto) [place] # Eos # Lymph # (Auto) [place] # (Auto) Eos # (Auto) Seg Neutrophils % Seg Neuts % (Manual) Baso # (Auto) Lymphocytes % (Manual) Monocytes % (Manual) Eosinophils % (Manual) Basophils % (Manual) Seg Neutrophils # Seg Neutrophils # Man Lymphocytes # (Manual) Monocytes # (Manual) Eosinophils # (Manual) Nucleated RBC % Basophils # (Manual) APTT Heparin Anti-Xa Level ABG pH POC ABG pO2 ABG pO2 ABG HCO3 ABG O2 Saturation ABG Base Excess POC ABG pCO2 ABG Hemoglobin ABG Oxyhemoglobin Oxyhemoglobin Sodium Potassium Chloride Carbon Dioxide BUN Creatinine Glucose POC Glucose 156 H 156 H 155 H Lactic Acid Calcium Phosphorus Magnesium AST ALT Lactate Dehydrogenase CK-MB (CK-2) C-Reactive Protein NT-Pro-B Natriuret Pep Total Protein Albumin Urine WBC (Auto) 12/20/19 12/20/19 12/20/19 05:26 06:02 18:17 WBC RBC Hgb Hct MCHC RDW MCH Lymph % (Auto) [place] % (Auto) [place] # Eos # Lymph # (Auto) [place] # (Auto) Eos # (Auto) Seg Neutrophils % Seg Neuts % (Manual) Baso # (Auto) Lymphocytes % (Manual) Monocytes % (Manual) Eosinophils % (Manual) Basophils % (Manual) Seg Neutrophils # Seg Neutrophils # Man Lymphocytes # (Manual) Monocytes # (Manual) Eosinophils # (Manual) Nucleated RBC % Basophils # (Manual) APTT Heparin Anti-Xa Level 0.19 L ABG pH POC ABG pO2 ABG pO2 ABG HCO3 ABG O2 Saturation ABG Base Excess POC ABG pCO2 ABG Hemoglobin ABG Oxyhemoglobin Oxyhemoglobin Sodium Potassium Chloride Carbon Dioxide BUN Creatinine Glucose POC Glucose 137 H 128 H Lactic Acid Calcium Phosphorus Magnesium AST ALT Lactate Dehydrogenase CK-MB (CK-2) C-Reactive Protein NT-Pro-B Natriuret Pep Total Protein Albumin Urine WBC (Auto) 12/20/19 12/21/19 12/21/19 23:34 05:31 05:31 WBC 12.7 H RBC 3.09 L Hgb 8.9 L Hct 27.4 L MCHC RDW 15.8 H MCH Lymph % (Auto) 12.1 L [place] % (Auto) 7.8 H [place] # Eos # Lymph # (Auto) [place] # (Auto) 1.0 H Eos # (Auto) Seg Neutrophils % 77.1 H Seg Neuts % (Manual) Baso # (Auto) Lymphocytes % (Manual) Monocytes % (Manual) Eosinophils % (Manual) Basophils % (Manual) Seg Neutrophils # 9.8 H Seg Neutrophils # Man Lymphocytes # (Manual) Monocytes # (Manual) Eosinophils # (Manual) Nucleated RBC % Basophils # (Manual) APTT Heparin Anti-Xa Level ABG pH POC ABG pO2 ABG pO2 ABG HCO3 ABG O2 Saturation ABG Base Excess POC ABG pCO2 ABG Hemoglobin ABG Oxyhemoglobin Oxyhemoglobin Sodium Potassium Chloride 96.9 L Carbon Dioxide 37 H BUN 27 H Creatinine 0.7 L Glucose 140 H POC Glucose 145 H Lactic Acid Calcium Phosphorus Magnesium AST ALT Lactate Dehydrogenase CK-MB (CK-2) C-Reactive Protein NT-Pro-B Natriuret Pep Total Protein Albumin Urine WBC (Auto) 12/21/19 12/21/19 12/21/19 05:38 10:13 11:51 WBC RBC Hgb Hct MCHC RDW MCH Lymph % (Auto) [place] % (Auto) [place] # Eos # Lymph # (Auto) [place] # (Auto) Eos # (Auto) Seg Neutrophils % Seg Neuts % (Manual) Baso # (Auto) Lymphocytes % (Manual) Monocytes % (Manual) Eosinophils % (Manual) Basophils % (Manual) Seg Neutrophils # Seg Neutrophils # Man Lymphocytes # (Manual) Monocytes # (Manual) Eosinophils # (Manual) Nucleated RBC % Basophils # (Manual) APTT 23.9 L Heparin Anti-Xa Level < 0.10 L ABG pH POC ABG pO2 ABG pO2 ABG HCO3 ABG O2 Saturation ABG Base Excess POC ABG pCO2 ABG Hemoglobin ABG Oxyhemoglobin Oxyhemoglobin Sodium Potassium Chloride Carbon Dioxide BUN Creatinine Glucose POC Glucose 151 H 145 H Lactic Acid Calcium Phosphorus Magnesium AST ALT Lactate Dehydrogenase CK-MB (CK-2) C-Reactive Protein NT-Pro-B Natriuret Pep Total Protein Albumin Urine WBC (Auto) 12/21/19 12/22/19 12/22/19 17:16 00:01 01:33 WBC RBC Hgb Hct MCHC RDW MCH Lymph % (Auto) [place] % (Auto) [place] # Eos # Lymph # (Auto) [place] # (Auto) Eos # (Auto) Seg Neutrophils % Seg Neuts % (Manual) Baso # (Auto) Lymphocytes % (Manual) Monocytes % (Manual) Eosinophils % (Manual) Basophils % (Manual) Seg Neutrophils # Seg Neutrophils # Man Lymphocytes # (Manual) Monocytes # (Manual) Eosinophils # (Manual) Nucleated RBC % Basophils # (Manual) APTT Heparin Anti-Xa Level 0.10 L ABG pH POC ABG pO2 ABG pO2 ABG HCO3 ABG O2 Saturation ABG Base Excess POC ABG pCO2 ABG Hemoglobin ABG Oxyhemoglobin Oxyhemoglobin Sodium Potassium Chloride Carbon Dioxide BUN Creatinine Glucose POC Glucose 167 H 179 H Lactic Acid Calcium Phosphorus Magnesium AST ALT Lactate Dehydrogenase CK-MB (CK-2) C-Reactive Protein NT-Pro-B Natriuret Pep Total Protein Albumin Urine WBC (Auto) 12/22/19 12/22/19 12/22/19 03:22 05:10 05:10 WBC 13.8 H RBC 3.20 L Hgb 8.9 L Hct 28.1 L MCHC RDW 15.9 H MCH Lymph % (Auto) [place] % (Auto) [place] # Eos # Lymph # (Auto) [place] # (Auto) Eos # (Auto) Seg Neutrophils % Seg Neuts % (Manual) Baso # (Auto) Lymphocytes % (Manual) Monocytes % (Manual) Eosinophils % (Manual) Basophils % (Manual) Seg Neutrophils # Seg Neutrophils # Man Lymphocytes # (Manual) Monocytes # (Manual) Eosinophils # (Manual) Nucleated RBC % Basophils # (Manual) APTT Heparin Anti-Xa Level ABG pH POC ABG pO2 52.3 L ABG pO2 ABG HCO3 ABG O2 Saturation ABG Base Excess POC ABG pCO2 52.9 H ABG Hemoglobin 10.7 L ABG Oxyhemoglobin 84 L Oxyhemoglobin Sodium Potassium Chloride 96.6 L Carbon Dioxide BUN 25 H Creatinine 0.7 L Glucose 129 H POC Glucose Lactic Acid Calcium Phosphorus Magnesium AST ALT Lactate Dehydrogenase CK-MB (CK-2) C-Reactive Protein NT-Pro-B Natriuret Pep Total Protein Albumin Urine WBC (Auto) 12/22/19 12/22/19 12/22/19 05:18 12:32 12:43 WBC RBC Hgb Hct MCHC RDW MCH Lymph % (Auto) [place] % (Auto) [place] # Eos # Lymph # (Auto) [place] # (Auto) Eos # (Auto) Seg Neutrophils % Seg Neuts % (Manual) Baso # (Auto) Lymphocytes % (Manual) Monocytes % (Manual) Eosinophils % (Manual) Basophils % (Manual) Seg Neutrophils # Seg Neutrophils # Man Lymphocytes # (Manual) Monocytes # (Manual) Eosinophils # (Manual) Nucleated RBC % Basophils # (Manual) APTT Heparin Anti-Xa Level 0.18 L ABG pH POC ABG pO2 ABG pO2 ABG HCO3 ABG O2 Saturation ABG Base Excess POC ABG pCO2 ABG Hemoglobin ABG Oxyhemoglobin Oxyhemoglobin Sodium Potassium Chloride Carbon Dioxide BUN Creatinine Glucose POC Glucose 131 H 208 H Lactic Acid Calcium Phosphorus Magnesium AST ALT Lactate Dehydrogenase CK-MB (CK-2) C-Reactive Protein NT-Pro-B Natriuret Pep Total Protein Albumin Urine WBC (Auto) 12/22/19 12/22/19 12/23/19 17:44 23:20 03:51 WBC 15.2 H RBC 3.43 L Hgb 9.6 L Hct 30.3 L MCHC RDW 15.9 H MCH Lymph % (Auto) [place] % (Auto) [place] # Eos # Lymph # (Auto) [place] # (Auto) Eos # (Auto) Seg Neutrophils % Seg Neuts % (Manual) Baso # (Auto) Lymphocytes % (Manual) Monocytes % (Manual) Eosinophils % (Manual) Basophils % (Manual) Seg Neutrophils # Seg Neutrophils # Man Lymphocytes # (Manual) Monocytes # (Manual) Eosinophils # (Manual) Nucleated RBC % Basophils # (Manual) APTT Heparin Anti-Xa Level ABG pH POC ABG pO2 ABG pO2 ABG HCO3 ABG O2 Saturation ABG Base Excess POC ABG pCO2 ABG Hemoglobin ABG Oxyhemoglobin Oxyhemoglobin Sodium Potassium Chloride Carbon Dioxide BUN Creatinine Glucose POC Glucose 209 H 119 H Lactic Acid Calcium Phosphorus Magnesium AST ALT Lactate Dehydrogenase CK-MB (CK-2) C-Reactive Protein NT-Pro-B Natriuret Pep Total Protein Albumin Urine WBC (Auto) 12/23/19 12/23/19 12/23/19 03:51 05:31 12:09 WBC RBC Hgb Hct MCHC RDW MCH Lymph % (Auto) [place] % (Auto) [place] # Eos # Lymph # (Auto) [place] # (Auto) Eos # (Auto) Seg Neutrophils % Seg Neuts % (Manual) Baso # (Auto) Lymphocytes % (Manual) Monocytes % (Manual) Eosinophils % (Manual) Basophils % (Manual) Seg Neutrophils # Seg Neutrophils # Man Lymphocytes # (Manual) Monocytes # (Manual) Eosinophils # (Manual) Nucleated RBC % Basophils # (Manual) APTT Heparin Anti-Xa Level ABG pH POC ABG pO2 ABG pO2 ABG HCO3 ABG O2 Saturation ABG Base Excess POC ABG pCO2 ABG Hemoglobin ABG Oxyhemoglobin Oxyhemoglobin Sodium Potassium Chloride 97.2 L Carbon Dioxide 31 H BUN 23 H Creatinine 0.6 L Glucose 153 H POC Glucose 149 H 144 H Lactic Acid Calcium Phosphorus Magnesium AST ALT Lactate Dehydrogenase CK-MB (CK-2) C-Reactive Protein NT-Pro-B Natriuret Pep Total Protein Albumin Urine WBC (Auto) 12/23/19 12/23/19 12/23/19 15:30 17:49 23:31 WBC RBC Hgb Hct MCHC RDW MCH Lymph % (Auto) [place] % (Auto) [place] # Eos # Lymph # (Auto) [place] # (Auto) Eos # (Auto) Seg Neutrophils % Seg Neuts % (Manual) Baso # (Auto) Lymphocytes % (Manual) Monocytes % (Manual) Eosinophils % (Manual) Basophils % (Manual) Seg Neutrophils # Seg Neutrophils # Man Lymphocytes # (Manual) Monocytes # (Manual) Eosinophils # (Manual) Nucleated RBC % Basophils # (Manual) APTT Heparin Anti-Xa Level 0.21 L ABG pH POC ABG pO2 ABG pO2 ABG HCO3 ABG O2 Saturation ABG Base Excess POC ABG pCO2 ABG Hemoglobin ABG Oxyhemoglobin Oxyhemoglobin Sodium Potassium Chloride Carbon Dioxide BUN Creatinine Glucose POC Glucose 192 H 151 H Lactic Acid Calcium Phosphorus Magnesium AST ALT Lactate Dehydrogenase CK-MB (CK-2) C-Reactive Protein NT-Pro-B Natriuret Pep Total Protein Albumin Urine WBC (Auto) 12/24/19 12/24/19 12/24/19 05:34 12:13 16:50 WBC RBC Hgb Hct MCHC RDW MCH Lymph % (Auto) [place] % (Auto) [place] # Eos # Lymph # (Auto) [place] # (Auto) Eos # (Auto) Seg Neutrophils % Seg Neuts % (Manual) Baso # (Auto) Lymphocytes % (Manual) Monocytes % (Manual) Eosinophils % (Manual) Basophils % (Manual) Seg Neutrophils # Seg Neutrophils # Man Lymphocytes # (Manual) Monocytes # (Manual) Eosinophils # (Manual) Nucleated RBC % Basophils # (Manual) APTT Heparin Anti-Xa Level 0.16 L ABG pH POC ABG pO2 ABG pO2 ABG HCO3 ABG O2 Saturation ABG Base Excess POC ABG pCO2 ABG Hemoglobin ABG Oxyhemoglobin Oxyhemoglobin Sodium Potassium Chloride Carbon Dioxide BUN Creatinine Glucose POC Glucose 145 H 124 H Lactic Acid Calcium Phosphorus Magnesium AST ALT Lactate Dehydrogenase CK-MB (CK-2) C-Reactive Protein NT-Pro-B Natriuret Pep Total Protein Albumin Urine WBC (Auto) 12/24/19 12/25/19 12/25/19 17:53 00:14 04:18 WBC 12.9 H RBC 3.30 L Hgb 9.1 L Hct 28.8 L MCHC RDW 16.4 H MCH Lymph % (Auto) [place] % (Auto) 7.8 H [place] # Eos # Lymph # (Auto) [place] # (Auto) 1.0 H Eos # (Auto) Seg Neutrophils % 75.5 H Seg Neuts % (Manual) Baso # (Auto) Lymphocytes % (Manual) Monocytes % (Manual) Eosinophils % (Manual) Basophils % (Manual) Seg Neutrophils # 9.7 H Seg Neutrophils # Man Lymphocytes # (Manual) Monocytes # (Manual) Eosinophils # (Manual) Nucleated RBC % Basophils # (Manual) APTT Heparin Anti-Xa Level ABG pH POC ABG pO2 ABG pO2 ABG HCO3 ABG O2 Saturation ABG Base Excess POC ABG pCO2 ABG Hemoglobin ABG Oxyhemoglobin Oxyhemoglobin Sodium Potassium Chloride Carbon Dioxide BUN Creatinine Glucose POC Glucose 164 H 148 H Lactic Acid Calcium Phosphorus Magnesium AST ALT Lactate Dehydrogenase CK-MB (CK-2) C-Reactive Protein NT-Pro-B Natriuret Pep Total Protein Albumin Urine WBC (Auto) 12/25/19 12/25/19 12/25/19 04:18 05:38 11:44 WBC RBC Hgb Hct MCHC RDW MCH Lymph % (Auto) [place] % (Auto) [place] # Eos # Lymph # (Auto) [place] # (Auto) Eos # (Auto) Seg Neutrophils % Seg Neuts % (Manual) Baso # (Auto) Lymphocytes % (Manual) Monocytes % (Manual) Eosinophils % (Manual) Basophils % (Manual) Seg Neutrophils # Seg Neutrophils # Man Lymphocytes # (Manual) Monocytes # (Manual) Eosinophils # (Manual) Nucleated RBC % Basophils # (Manual) APTT Heparin Anti-Xa Level ABG pH POC ABG pO2 ABG pO2 ABG HCO3 ABG O2 Saturation ABG Base Excess POC ABG pCO2 ABG Hemoglobin ABG Oxyhemoglobin Oxyhemoglobin Sodium Potassium Chloride Carbon Dioxide 33 H BUN 27 H Creatinine 0.6 L Glucose 132 H POC Glucose 152 H 166 H Lactic Acid Calcium Phosphorus Magnesium AST ALT Lactate Dehydrogenase CK-MB (CK-2) C-Reactive Protein NT-Pro-B Natriuret Pep Total Protein Albumin Urine WBC (Auto) 12/25/19 12/26/19 12/26/19 18:29 00:17 00:18 WBC RBC Hgb Hct MCHC RDW MCH Lymph % (Auto) [place] % (Auto) [place] # Eos # Lymph # (Auto) [place] # (Auto) Eos # (Auto) Seg Neutrophils % Seg Neuts % (Manual) Baso # (Auto) Lymphocytes % (Manual) Monocytes % (Manual) Eosinophils % (Manual) Basophils % (Manual) Seg Neutrophils # Seg Neutrophils # Man Lymphocytes # (Manual) Monocytes # (Manual) Eosinophils # (Manual) Nucleated RBC % Basophils # (Manual) APTT Heparin Anti-Xa Level ABG pH POC ABG pO2 ABG pO2 ABG HCO3 ABG O2 Saturation ABG Base Excess POC ABG pCO2 ABG Hemoglobin ABG Oxyhemoglobin Oxyhemoglobin Sodium Potassium Chloride 97.8 L Carbon Dioxide BUN 25 H Creatinine 0.6 L Glucose 140 H POC Glucose 194 H 151 H Lactic Acid Calcium Phosphorus Magnesium AST ALT Lactate Dehydrogenase CK-MB (CK-2) C-Reactive Protein NT-Pro-B Natriuret Pep Total Protein Albumin Urine WBC (Auto) 12/26/19 12/26/19 12/26/19 05:36 11:41 17:50 WBC RBC Hgb Hct MCHC RDW MCH Lymph % (Auto) [place] % (Auto) [place] # Eos # Lymph # (Auto) [place] # (Auto) Eos # (Auto) Seg Neutrophils % Seg Neuts % (Manual) Baso # (Auto) Lymphocytes % (Manual) Monocytes % (Manual) Eosinophils % (Manual) Basophils % (Manual) Seg Neutrophils # Seg Neutrophils # Man Lymphocytes # (Manual) Monocytes # (Manual) Eosinophils # (Manual) Nucleated RBC % Basophils # (Manual) APTT Heparin Anti-Xa Level ABG pH POC ABG pO2 ABG pO2 ABG HCO3 ABG O2 Saturation ABG Base Excess POC ABG pCO2 ABG Hemoglobin ABG Oxyhemoglobin Oxyhemoglobin Sodium Potassium Chloride Carbon Dioxide BUN Creatinine Glucose POC Glucose 156 H 148 H 139 H Lactic Acid Calcium Phosphorus Magnesium AST ALT Lactate Dehydrogenase CK-MB (CK-2) C-Reactive Protein NT-Pro-B Natriuret Pep Total Protein Albumin Urine WBC (Auto) 12/26/19 12/27/19 12/27/19 23:19 05:34 12:02 WBC RBC Hgb Hct MCHC RDW MCH Lymph % (Auto) [place] % (Auto) [place] # Eos # Lymph # (Auto) [place] # (Auto) Eos # (Auto) Seg Neutrophils % Seg Neuts % (Manual) Baso # (Auto) Lymphocytes % (Manual) Monocytes % (Manual) Eosinophils % (Manual) Basophils % (Manual) Seg Neutrophils # Seg Neutrophils # Man Lymphocytes # (Manual) Monocytes # (Manual) Eosinophils # (Manual) Nucleated RBC % Basophils # (Manual) APTT Heparin Anti-Xa Level ABG pH POC ABG pO2 ABG pO2 ABG HCO3 ABG O2 Saturation ABG Base Excess POC ABG pCO2 ABG Hemoglobin ABG Oxyhemoglobin Oxyhemoglobin Sodium Potassium Chloride Carbon Dioxide BUN Creatinine Glucose POC Glucose 161 H 145 H 157 H Lactic Acid Calcium Phosphorus Magnesium AST ALT Lactate Dehydrogenase CK-MB (CK-2) C-Reactive Protein NT-Pro-B Natriuret Pep Total Protein Albumin Urine WBC (Auto) 12/27/19 12/27/19 12/27/19 17:35 20:11 23:00 WBC RBC Hgb Hct MCHC RDW MCH Lymph % (Auto) [place] % (Auto) [place] # Eos # Lymph # (Auto) [place] # (Auto) Eos # (Auto) Seg Neutrophils % Seg Neuts % (Manual) Baso # (Auto) Lymphocytes % (Manual) Monocytes % (Manual) Eosinophils % (Manual) Basophils % (Manual) Seg Neutrophils # Seg Neutrophils # Man Lymphocytes # (Manual) Monocytes # (Manual) Eosinophils # (Manual) Nucleated RBC % Basophils # (Manual) APTT Heparin Anti-Xa Level 0.19 L ABG pH POC ABG pO2 ABG pO2 ABG HCO3 ABG O2 Saturation ABG Base Excess POC ABG pCO2 ABG Hemoglobin ABG Oxyhemoglobin Oxyhemoglobin Sodium Potassium Chloride Carbon Dioxide BUN Creatinine Glucose POC Glucose 158 H 155 H Lactic Acid Calcium Phosphorus Magnesium AST ALT Lactate Dehydrogenase CK-MB (CK-2) C-Reactive Protein NT-Pro-B Natriuret Pep Total Protein Albumin Urine WBC (Auto) 12/27/19 12/28/19 12/28/19 23:45 02:41 02:41 WBC 13.0 H RBC 3.48 L Hgb 9.5 L Hct 30.6 L MCHC 31 L RDW 16.6 H MCH 27 L Lymph % (Auto) 13.0 L [place] % (Auto) 8.0 H [place] # Eos # Lymph # (Auto) [place] # (Auto) 1.0 H Eos # (Auto) Seg Neutrophils % 76.3 H Seg Neuts % (Manual) Baso # (Auto) Lymphocytes % (Manual) Monocytes % (Manual) Eosinophils % (Manual) Basophils % (Manual) Seg Neutrophils # 9.9 H Seg Neutrophils # Man Lymphocytes # (Manual) Monocytes # (Manual) Eosinophils # (Manual) Nucleated RBC % Basophils # (Manual) APTT Heparin Anti-Xa Level ABG pH POC ABG pO2 ABG pO2 ABG HCO3 ABG O2 Saturation ABG Base Excess POC ABG pCO2 ABG Hemoglobin ABG Oxyhemoglobin Oxyhemoglobin Sodium Potassium Chloride Carbon Dioxide BUN 22 H Creatinine 0.6 L Glucose 101 H POC Glucose 130 H Lactic Acid Calcium Phosphorus Magnesium AST ALT Lactate Dehydrogenase CK-MB (CK-2) C-Reactive Protein NT-Pro-B Natriuret Pep Total Protein Albumin Urine WBC (Auto) 12/28/19 12/28/19 12/28/19 06:00 12:34 18:13 WBC RBC Hgb Hct MCHC RDW MCH Lymph % (Auto) [place] % (Auto) [place] # Eos # Lymph # (Auto) [place] # (Auto) Eos # (Auto) Seg Neutrophils % Seg Neuts % (Manual) Baso # (Auto) Lymphocytes % (Manual) Monocytes % (Manual) Eosinophils % (Manual) Basophils % (Manual) Seg Neutrophils # Seg Neutrophils # Man Lymphocytes # (Manual) Monocytes # (Manual) Eosinophils # (Manual) Nucleated RBC % Basophils # (Manual) APTT Heparin Anti-Xa Level ABG pH POC ABG pO2 ABG pO2 ABG HCO3 ABG O2 Saturation ABG Base Excess POC ABG pCO2 ABG Hemoglobin ABG Oxyhemoglobin Oxyhemoglobin Sodium Potassium Chloride Carbon Dioxide BUN Creatinine Glucose POC Glucose 150 H 161 H 128 H Lactic Acid Calcium Phosphorus Magnesium AST ALT Lactate Dehydrogenase CK-MB (CK-2) C-Reactive Protein NT-Pro-B Natriuret Pep Total Protein Albumin Urine WBC (Auto) 12/28/19 12/29/19 12/29/19 23:36 05:21 11:40 WBC RBC Hgb Hct MCHC RDW MCH Lymph % (Auto) [place] % (Auto) [place] # Eos # Lymph # (Auto) [place] # (Auto) Eos # (Auto) Seg Neutrophils % Seg Neuts % (Manual) Baso # (Auto) Lymphocytes % (Manual) Monocytes % (Manual) Eosinophils % (Manual) Basophils % (Manual) Seg Neutrophils # Seg Neutrophils # Man Lymphocytes # (Manual) Monocytes # (Manual) Eosinophils # (Manual) Nucleated RBC % Basophils # (Manual) APTT Heparin Anti-Xa Level ABG pH POC ABG pO2 ABG pO2 ABG HCO3 ABG O2 Saturation ABG Base Excess POC ABG pCO2 ABG Hemoglobin ABG Oxyhemoglobin Oxyhemoglobin Sodium Potassium Chloride Carbon Dioxide BUN Creatinine Glucose POC Glucose 137 H 136 H 166 H Lactic Acid Calcium Phosphorus Magnesium AST ALT Lactate Dehydrogenase CK-MB (CK-2) C-Reactive Protein NT-Pro-B Natriuret Pep Total Protein Albumin Urine WBC (Auto) 12/29/19 12/29/19 12/29/19 17:23 19:21 23:38 WBC RBC Hgb Hct MCHC RDW MCH Lymph % (Auto) [place] % (Auto) [place] # Eos # Lymph # (Auto) [place] # (Auto) Eos # (Auto) Seg Neutrophils % Seg Neuts % (Manual) Baso # (Auto) Lymphocytes % (Manual) Monocytes % (Manual) Eosinophils % (Manual) Basophils % (Manual) Seg Neutrophils # Seg Neutrophils # Man Lymphocytes # (Manual) Monocytes # (Manual) Eosinophils # (Manual) Nucleated RBC % Basophils # (Manual) APTT Heparin Anti-Xa Level 0.20 L ABG pH POC ABG pO2 ABG pO2 ABG HCO3 ABG O2 Saturation ABG Base Excess POC ABG pCO2 ABG Hemoglobin ABG Oxyhemoglobin Oxyhemoglobin Sodium Potassium Chloride Carbon Dioxide BUN Creatinine Glucose POC Glucose 144 H 141 H Lactic Acid Calcium Phosphorus Magnesium AST ALT Lactate Dehydrogenase CK-MB (CK-2) C-Reactive Protein NT-Pro-B Natriuret Pep Total Protein Albumin Urine WBC (Auto) 12/30/19 12/30/19 12/30/19 03:58 03:58 04:59 WBC RBC 3.54 L Hgb 9.8 L Hct 30.7 L MCHC RDW 16.8 H MCH Lymph % (Auto) [place] % (Auto) [place] # Eos # Lymph # (Auto) [place] # (Auto) Eos # (Auto) Seg Neutrophils % Seg Neuts % (Manual) Baso # (Auto) Lymphocytes % (Manual) Monocytes % (Manual) Eosinophils % (Manual) Basophils % (Manual) Seg Neutrophils # Seg Neutrophils # Man Lymphocytes # (Manual) Monocytes # (Manual) Eosinophils # (Manual) Nucleated RBC % Basophils # (Manual) APTT Heparin Anti-Xa Level ABG pH POC ABG pO2 ABG pO2 ABG HCO3 29.8 H ABG O2 Saturation ABG Base Excess 4.8 H POC ABG pCO2 ABG Hemoglobin 11.2 L ABG Oxyhemoglobin Oxyhemoglobin 93.8 L Sodium Potassium Chloride 97.8 L Carbon Dioxide BUN 26 H Creatinine Glucose 168 H POC Glucose Lactic Acid Calcium Phosphorus Magnesium AST ALT Lactate Dehydrogenase CK-MB (CK-2) C-Reactive Protein NT-Pro-B Natriuret Pep Total Protein Albumin Urine WBC (Auto) 12/30/19 12/30/19 12/30/19 05:45 11:34 17:28 WBC RBC Hgb Hct MCHC RDW MCH Lymph % (Auto) [place] % (Auto) [place] # Eos # Lymph # (Auto) [place] # (Auto) Eos # (Auto) Seg Neutrophils % Seg Neuts % (Manual) Baso # (Auto) Lymphocytes % (Manual) Monocytes % (Manual) Eosinophils % (Manual) Basophils % (Manual) Seg Neutrophils # Seg Neutrophils # Man Lymphocytes # (Manual) Monocytes # (Manual) Eosinophils # (Manual) Nucleated RBC % Basophils # (Manual) APTT Heparin Anti-Xa Level ABG pH POC ABG pO2 ABG pO2 ABG HCO3 ABG O2 Saturation ABG Base Excess POC ABG pCO2 ABG Hemoglobin ABG Oxyhemoglobin Oxyhemoglobin Sodium Potassium Chloride Carbon Dioxide BUN Creatinine Glucose POC Glucose 163 H 180 H 150 H Lactic Acid Calcium Phosphorus Magnesium AST ALT Lactate Dehydrogenase CK-MB (CK-2) C-Reactive Protein NT-Pro-B Natriuret Pep Total Protein Albumin Urine WBC (Auto) 12/30/19 12/31/19 12/31/19 23:43 04:55 05:07 WBC RBC Hgb Hct MCHC RDW MCH Lymph % (Auto) [place] % (Auto) [place] # Eos # Lymph # (Auto) [place] # (Auto) Eos # (Auto) Seg Neutrophils % Seg Neuts % (Manual) Baso # (Auto) Lymphocytes % (Manual) Monocytes % (Manual) Eosinophils % (Manual) Basophils % (Manual) Seg Neutrophils # Seg Neutrophils # Man Lymphocytes # (Manual) Monocytes # (Manual) Eosinophils # (Manual) Nucleated RBC % Basophils # (Manual) APTT Heparin Anti-Xa Level ABG pH POC ABG pO2 ABG pO2 ABG HCO3 ABG O2 Saturation ABG Base Excess POC ABG pCO2 ABG Hemoglobin ABG Oxyhemoglobin Oxyhemoglobin Sodium Potassium 5.6 H D Chloride Carbon Dioxide BUN 33 H Creatinine Glucose 131 H POC Glucose 142 H 134 H Lactic Acid Calcium Phosphorus Magnesium AST ALT Lactate Dehydrogenase CK-MB (CK-2) C-Reactive Protein NT-Pro-B Natriuret Pep Total Protein Albumin Urine WBC (Auto) 12/31/19 12/31/19 12/31/19 11:30 17:19 17:36 WBC RBC Hgb Hct MCHC RDW MCH Lymph % (Auto) [place] % (Auto) [place] # Eos # Lymph # (Auto) [place] # (Auto) Eos # (Auto) Seg Neutrophils % Seg Neuts % (Manual) Baso # (Auto) Lymphocytes % (Manual) Monocytes % (Manual) Eosinophils % (Manual) Basophils % (Manual) Seg Neutrophils # Seg Neutrophils # Man Lymphocytes # (Manual) Monocytes # (Manual) Eosinophils # (Manual) Nucleated RBC % Basophils # (Manual) APTT Heparin Anti-Xa Level ABG pH POC ABG pO2 ABG pO2 ABG HCO3 ABG O2 Saturation ABG Base Excess POC ABG pCO2 ABG Hemoglobin ABG Oxyhemoglobin Oxyhemoglobin Sodium Potassium Chloride Carbon Dioxide BUN 35 H Creatinine Glucose 156 H POC Glucose 158 H 181 H Lactic Acid Calcium Phosphorus Magnesium AST ALT Lactate Dehydrogenase CK-MB (CK-2) C-Reactive Protein NT-Pro-B Natriuret Pep Total Protein Albumin Urine WBC (Auto) 12/31/19 12/31/19 12/31/19 18:16 19:41 21:53 WBC RBC Hgb Hct MCHC RDW MCH Lymph % (Auto) [place] % (Auto) [place] # Eos # Lymph # (Auto) [place] # (Auto) Eos # (Auto) Seg Neutrophils % Seg Neuts % (Manual) Baso # (Auto) Lymphocytes % (Manual) Monocytes % (Manual) Eosinophils % (Manual) Basophils % (Manual) Seg Neutrophils # Seg Neutrophils # Man Lymphocytes # (Manual) Monocytes # (Manual) Eosinophils # (Manual) Nucleated RBC % Basophils # (Manual) APTT Heparin Anti-Xa Level 0.20 L ABG pH POC ABG pO2 ABG pO2 ABG HCO3 ABG O2 Saturation ABG Base Excess POC ABG pCO2 ABG Hemoglobin ABG Oxyhemoglobin Oxyhemoglobin Sodium Potassium Chloride Carbon Dioxide BUN 34 H Creatinine Glucose 169 H POC Glucose 141 H Lactic Acid Calcium Phosphorus Magnesium AST ALT Lactate Dehydrogenase CK-MB (CK-2) C-Reactive Protein NT-Pro-B Natriuret Pep Total Protein Albumin Urine WBC (Auto) 12/31/19 01/01/20 01/01/20 23:51 05:17 10:40 WBC RBC Hgb Hct MCHC RDW MCH Lymph % (Auto) [place] % (Auto) [place] # Eos # Lymph # (Auto) [place] # (Auto) Eos # (Auto) Seg Neutrophils % Seg Neuts % (Manual) Baso # (Auto) Lymphocytes % (Manual) Monocytes % (Manual) Eosinophils % (Manual) Basophils % (Manual) Seg Neutrophils # Seg Neutrophils # Man Lymphocytes # (Manual) Monocytes # (Manual) Eosinophils # (Manual) Nucleated RBC % Basophils # (Manual) APTT Heparin Anti-Xa Level ABG pH POC ABG pO2 ABG pO2 ABG HCO3 ABG O2 Saturation ABG Base Excess POC ABG pCO2 ABG Hemoglobin ABG Oxyhemoglobin Oxyhemoglobin Sodium Potassium Chloride Carbon Dioxide BUN 31 H Creatinine 0.7 L Glucose 137 H POC Glucose 131 H 155 H Lactic Acid Calcium Phosphorus Magnesium AST 73 H ALT 97 H Lactate Dehydrogenase CK-MB (CK-2) C-Reactive Protein NT-Pro-B Natriuret Pep 3866 H Total Protein Albumin 2.8 L Urine WBC (Auto) 01/01/20 01/01/20 01/01/20 12:26 15:33 17:53 WBC 14.3 H RBC 3.35 L Hgb 9.1 L Hct 28.8 L MCHC RDW 17.0 H MCH 27 L Lymph % (Auto) 7.0 L [place] % (Auto) 7.6 H [place] # Eos # Lymph # (Auto) 1.0 L [place] # (Auto) 1.1 H Eos # (Auto) Seg Neutrophils % 83.3 H Seg Neuts % (Manual) Baso # (Auto) Lymphocytes % (Manual) Monocytes % (Manual) Eosinophils % (Manual) Basophils % (Manual) Seg Neutrophils # 12.0 H Seg Neutrophils # Man Lymphocytes # (Manual) Monocytes # (Manual) Eosinophils # (Manual) Nucleated RBC % Basophils # (Manual) APTT Heparin Anti-Xa Level ABG pH POC ABG pO2 ABG pO2 ABG HCO3 ABG O2 Saturation ABG Base Excess POC ABG pCO2 ABG Hemoglobin ABG Oxyhemoglobin Oxyhemoglobin Sodium Potassium Chloride Carbon Dioxide BUN Creatinine Glucose POC Glucose 128 H 128 H Lactic Acid Calcium Phosphorus Magnesium AST ALT Lactate Dehydrogenase CK-MB (CK-2) C-Reactive Protein NT-Pro-B Natriuret Pep Total Protein Albumin Urine WBC (Auto) 01/01/20 01/02/20 01/02/20 23:04 05:39 07:00 WBC RBC Hgb Hct MCHC RDW MCH Lymph % (Auto) [place] % (Auto) [place] # Eos # Lymph # (Auto) [place] # (Auto) Eos # (Auto) Seg Neutrophils % Seg Neuts % (Manual) Baso # (Auto) Lymphocytes % (Manual) Monocytes % (Manual) Eosinophils % (Manual) Basophils % (Manual) Seg Neutrophils # Seg Neutrophils # Man Lymphocytes # (Manual) Monocytes # (Manual) Eosinophils # (Manual) Nucleated RBC % Basophils # (Manual) APTT Heparin Anti-Xa Level 0.13 L ABG pH POC ABG pO2 ABG pO2 ABG HCO3 ABG O2 Saturation ABG Base Excess POC ABG pCO2 ABG Hemoglobin ABG Oxyhemoglobin Oxyhemoglobin Sodium Potassium Chloride Carbon Dioxide BUN Creatinine Glucose POC Glucose 120 H 169 H Lactic Acid Calcium Phosphorus Magnesium AST ALT Lactate Dehydrogenase CK-MB (CK-2) C-Reactive Protein NT-Pro-B Natriuret Pep Total Protein Albumin Urine WBC (Auto) 01/02/20 01/02/20 01/02/20 12:15 14:06 17:58 WBC RBC Hgb Hct MCHC RDW MCH Lymph % (Auto) [place] % (Auto) [place] # Eos # Lymph # (Auto) [place] # (Auto) Eos # (Auto) Seg Neutrophils % Seg Neuts % (Manual) Baso # (Auto) Lymphocytes % (Manual) Monocytes % (Manual) Eosinophils % (Manual) Basophils % (Manual) Seg Neutrophils # Seg Neutrophils # Man Lymphocytes # (Manual) Monocytes # (Manual) Eosinophils # (Manual) Nucleated RBC % Basophils # (Manual) APTT Heparin Anti-Xa Level < 0.10 L ABG pH POC ABG pO2 ABG pO2 ABG HCO3 ABG O2 Saturation ABG Base Excess POC ABG pCO2 ABG Hemoglobin ABG Oxyhemoglobin Oxyhemoglobin Sodium Potassium Chloride Carbon Dioxide BUN Creatinine Glucose POC Glucose 190 H 198 H Lactic Acid Calcium Phosphorus Magnesium AST ALT Lactate Dehydrogenase CK-MB (CK-2) C-Reactive Protein NT-Pro-B Natriuret Pep Total Protein Albumin Urine WBC (Auto) 01/02/20 01/02/20 01/03/20 21:43 23:33 05:42 WBC RBC Hgb Hct MCHC RDW MCH Lymph % (Auto) [place] % (Auto) [place] # Eos # Lymph # (Auto) [place] # (Auto) Eos # (Auto) Seg Neutrophils % Seg Neuts % (Manual) Baso # (Auto) Lymphocytes % (Manual) Monocytes % (Manual) Eosinophils % (Manual) Basophils % (Manual) Seg Neutrophils # Seg Neutrophils # Man Lymphocytes # (Manual) Monocytes # (Manual) Eosinophils # (Manual) Nucleated RBC % Basophils # (Manual) APTT Heparin Anti-Xa Level 0.10 L ABG pH POC ABG pO2 ABG pO2 ABG HCO3 ABG O2 Saturation ABG Base Excess POC ABG pCO2 ABG Hemoglobin ABG Oxyhemoglobin Oxyhemoglobin Sodium Potassium Chloride Carbon Dioxide BUN Creatinine Glucose POC Glucose 180 H 163 H Lactic Acid Calcium Phosphorus Magnesium AST ALT Lactate Dehydrogenase CK-MB (CK-2) C-Reactive Protein NT-Pro-B Natriuret Pep Total Protein Albumin Urine WBC (Auto) 01/03/20 01/03/20 01/03/20 06:50 07:25 07:45 WBC 12.1 H RBC 3.35 L Hgb 9.0 L Hct 28.9 L MCHC 31 L RDW 16.6 H MCH 27 L Lymph % (Auto) 13.0 L [place] % (Auto) 8.6 H [place] # Eos # Lymph # (Auto) [place] # (Auto) 1.0 H Eos # (Auto) Seg Neutrophils % 75.9 H Seg Neuts % (Manual) Baso # (Auto) Lymphocytes % (Manual) Monocytes % (Manual) Eosinophils % (Manual) Basophils % (Manual) Seg Neutrophils # 9.2 H Seg Neutrophils # Man Lymphocytes # (Manual) Monocytes # (Manual) Eosinophils # (Manual) Nucleated RBC % Basophils # (Manual) APTT Heparin Anti-Xa Level 0.29 L ABG pH POC ABG pO2 ABG pO2 ABG HCO3 ABG O2 Saturation ABG Base Excess POC ABG pCO2 ABG Hemoglobin ABG Oxyhemoglobin Oxyhemoglobin Sodium Potassium 3.3 L D Chloride Carbon Dioxide 35 H D BUN 23 H Creatinine 0.6 L Glucose 149 H POC Glucose Lactic Acid Calcium Phosphorus Magnesium AST ALT 88 H Lactate Dehydrogenase CK-MB (CK-2) C-Reactive Protein NT-Pro-B Natriuret Pep Total Protein 6.2 L Albumin 2.9 L Urine WBC (Auto) 01/03/20 01/03/20 01/03/20 12:05 17:42 18:30 WBC RBC Hgb Hct MCHC RDW MCH Lymph % (Auto) [place] % (Auto) [place] # Eos # Lymph # (Auto) [place] # (Auto) Eos # (Auto) Seg Neutrophils % Seg Neuts % (Manual) Baso # (Auto) Lymphocytes % (Manual) Monocytes % (Manual) Eosinophils % (Manual) Basophils % (Manual) Seg Neutrophils # Seg Neutrophils # Man Lymphocytes # (Manual) Monocytes # (Manual) Eosinophils # (Manual) Nucleated RBC % Basophils # (Manual) APTT Heparin Anti-Xa Level ABG pH POC ABG pO2 ABG pO2 70.7 L ABG HCO3 36.1 H ABG O2 Saturation 94.4 L ABG Base Excess 10.0 H POC ABG pCO2 ABG Hemoglobin 9.7 L ABG Oxyhemoglobin Oxyhemoglobin 91.8 L Sodium Potassium Chloride Carbon Dioxide BUN Creatinine Glucose POC Glucose 128 H 132 H Lactic Acid Calcium Phosphorus Magnesium AST ALT Lactate Dehydrogenase CK-MB (CK-2) C-Reactive Protein NT-Pro-B Natriuret Pep Total Protein Albumin Urine WBC (Auto) 01/04/20 01/04/20 01/04/20 00:10 04:26 05:23 WBC RBC Hgb Hct MCHC RDW MCH Lymph % (Auto) [place] % (Auto) [place] # Eos # Lymph # (Auto) [place] # (Auto) Eos # (Auto) Seg Neutrophils % Seg Neuts % (Manual) Baso # (Auto) Lymphocytes % (Manual) Monocytes % (Manual) Eosinophils % (Manual) Basophils % (Manual) Seg Neutrophils # Seg Neutrophils # Man Lymphocytes # (Manual) Monocytes # (Manual) Eosinophils # (Manual) Nucleated RBC % Basophils # (Manual) APTT Heparin Anti-Xa Level 0.16 L ABG pH POC ABG pO2 ABG pO2 ABG HCO3 ABG O2 Saturation ABG Base Excess POC ABG pCO2 ABG Hemoglobin ABG Oxyhemoglobin Oxyhemoglobin Sodium Potassium Chloride Carbon Dioxide BUN Creatinine Glucose POC Glucose 121 H 119 H Lactic Acid Calcium Phosphorus Magnesium AST ALT Lactate Dehydrogenase CK-MB (CK-2) C-Reactive Protein NT-Pro-B Natriuret Pep Total Protein Albumin Urine WBC (Auto) 01/04/20 01/04/20 01/04/20 09:50 09:50 12:18 WBC 15.4 H RBC 3.30 L Hgb 8.7 L Hct 28.2 L MCHC 31 L RDW 17.0 H MCH 26 L Lymph % (Auto) [place] % (Auto) 7.6 H [place] # Eos # Lymph # (Auto) [place] # (Auto) 1.2 H Eos # (Auto) Seg Neutrophils % 75.4 H Seg Neuts % (Manual) Baso # (Auto) Lymphocytes % (Manual) Monocytes % (Manual) Eosinophils % (Manual) Basophils % (Manual) Seg Neutrophils # 11.6 H Seg Neutrophils # Man Lymphocytes # (Manual) Monocytes # (Manual) Eosinophils # (Manual) Nucleated RBC % Basophils # (Manual) APTT Heparin Anti-Xa Level ABG pH POC ABG pO2 ABG pO2 ABG HCO3 ABG O2 Saturation ABG Base Excess POC ABG pCO2 ABG Hemoglobin ABG Oxyhemoglobin Oxyhemoglobin Sodium 148 H Potassium 3.5 L Chloride Carbon Dioxide 32 H BUN Creatinine 0.6 L Glucose 114 H POC Glucose 111 H Lactic Acid Calcium Phosphorus Magnesium AST ALT 59 H Lactate Dehydrogenase CK-MB (CK-2) C-Reactive Protein NT-Pro-B Natriuret Pep Total Protein Albumin 2.6 L Urine WBC (Auto) 01/05/20 01/05/20 01/05/20 04:05 04:05 05:19 WBC 11.7 H RBC 3.50 L Hgb 9.3 L Hct 29.9 L MCHC 31 L RDW 16.6 H MCH 27 L Lymph % (Auto) 13.1 L [place] % (Auto) 9.7 H [place] # Eos # Lymph # (Auto) [place] # (Auto) 1.1 H Eos # (Auto) Seg Neutrophils % 74.0 H Seg Neuts % (Manual) Baso # (Auto) Lymphocytes % (Manual) Monocytes % (Manual) Eosinophils % (Manual) Basophils % (Manual) Seg Neutrophils # 8.6 H Seg Neutrophils # Man Lymphocytes # (Manual) Monocytes # (Manual) Eosinophils # (Manual) Nucleated RBC % Basophils # (Manual) APTT Heparin Anti-Xa Level ABG pH POC ABG pO2 ABG pO2 ABG HCO3 ABG O2 Saturation ABG Base Excess POC ABG pCO2 ABG Hemoglobin ABG Oxyhemoglobin Oxyhemoglobin Sodium 151 H Potassium Chloride Carbon Dioxide 34 H BUN Creatinine 0.7 L Glucose POC Glucose 112 H Lactic Acid Calcium Phosphorus Magnesium AST ALT 59 H Lactate Dehydrogenase CK-MB (CK-2) C-Reactive Protein NT-Pro-B Natriuret Pep Total Protein 5.8 L Albumin 2.6 L Urine WBC (Auto) Allied health notes reviewed: RT
[2020-01-05] MEDS ORDERED: SODIUM CHLORIDE 0.9% 250ML 250 ML IV ONE (11:58)
--- NOTE | 2020-01-05 12:01 | Progress Note ---
<KACEY HICKEY - Last Filed: 01/05/20 11:59> Assessment and Plan Atrial fibrillation on amiodarone and metoprolol Ischemic Cardiomyopathy, resolving re-echo this presentation reports an LVEF 40-45%. echo 08/2018: decreased LVEF 20-25%. Hx of CAD [facility] 12/2018: mild in-stent restenosis. No significant residual disease. Multifocal pneumonia negative COVID-19 test x 2 Respiratory failure Acute PE/DVT initiated on Eliquis Recommendations: Continue amiodarone and metoprolol for paroxysmal atrial fibrillation. Will order normal saline bolus for hypernatremia. Otherwise, conservative cardiac management. Subjective Date of service: 01/05/20 Principal diagnosis: Ac hypoxemic resp failure; Pneumonia; PUI COVID-19; CHF; COPD; HTN Interval history: No interval cardiac changes. Afib with a well controlled ventricular rate on telemetry. Objective Vital Signs Temp Pulse Pulse Resp Resp BP Pulse Ox 01/05/20 08:20 109 H 138/92 98 01/05/20 08:00 100.1 F H 01/05/20 07:01 147 H 19 126/82 100 01/05/20 06:31 99 H 12 128/78 96 01/05/20 06:00 157/78 95 01/05/20 05:30 144 H 15 156/97 95 01/05/20 05:01 136 H 24 147/92 94 01/05/20 04:30 115 H 128/86 01/05/20 04:19 125 H 125 H 20 97 01/05/20 04:00 118 H 130/76 94 01/05/20 03:46 99 H 123/83 96 01/05/20 03:31 99.1 F 01/05/20 03:30 99 H 123/83 93 01/05/20 03:00 109 H 127/79 94 01/05/20 02:30 132 H 127/91 94 01/05/20 02:00 97 H 120/78 94 01/05/20 01:30 88 115/78 96 01/05/20 01:00 113 H 97 H 22 120/74 93 01/05/20 00:30 98 H 116/72 86 01/05/20 00:00 112 H 107/81 94 01/04/20 23:30 101 H 114/66 88 10/12/20 23:22 99.7 F H 10/12/20 23:18 97 H 114/71 96 01/04/20 23:00 95 H 114/71 88 01/04/20 22:30 97 H 113/77 93 01/04/20 22:05 102 H 124/77 97 01/04/20 22:00 114 H 124/77 91 01/04/20 21:31 108 H 120/71 93 01/04/20 21:01 129 H 128/77 94 01/04/20 20:45 140 H 22 97 01/04/20 20:30 131 H 128/77 92 01/04/20 20:01 134 H 142/89 97 01/04/20 20:00 144 H 01/04/20 19:43 100 F H 01/04/20 19:35 01/04/20 19:31 109 H 140/70 93 01/04/20 19:23 108 H 18 101/63 93 01/04/20 19:14 116 H 101/63 01/04/20 19:01 122 H 101/63 87 01/04/20 18:01 120 H 104/69 89 01/04/20 17:30 102 H 111/74 92 01/04/20 17:03 99 H 21 111/76 93 01/04/20 17:00 110 H 111/74 91 01/04/20 16:30 103 H 122/68 88 01/04/20 16:00 98.1 F 108 H 120 H 19 19 117/76 87 01/04/20 15:31 121 H 115/79 90 01/04/20 15:00 108 H 112/65 88 01/04/20 14:45 101 H 104/68 01/04/20 14:30 93 H 104/68 90 01/04/20 14:00 103 H 98/77 90 01/04/20 13:30 89 97/70 85 01/04/20 13:00 103 H 99/69 89 01/04/20 12:30 109 H 96/66 88 01/04/20 12:28 95 H 22 109/73 94 01/04/20 12:00 98.5 F 107 H 117 H 21 19 109/73 90 Pulse Ox 01/05/20 08:20 01/05/20 08:00 01/05/20 07:01 01/05/20 06:31 01/05/20 06:00 01/05/20 05:30 01/05/20 05:01 01/05/20 04:30 01/05/20 04:19 01/05/20 04:00 01/05/20 03:46 01/05/20 03:31 01/05/20 03:30 01/05/20 03:00 01/05/20 02:30 01/05/20 02:00 01/05/20 01:30 01/05/20 01:00 01/05/20 00:30 01/05/20 00:00 01/04/20 23:30 01/04/20 23:22 01/04/20 23:18 01/04/20 23:00 01/04/20 22:30 01/04/20 22:05 01/04/20 22:00 01/04/20 21:31 01/04/20 21:01 01/04/20 20:45 01/04/20 20:30 01/04/20 20:01 01/04/20 20:00 01/04/20 19:43 01/04/20 19:35 98 01/04/20 19:31 01/04/20 19:23 01/04/20 19:14 01/04/20 19:01 01/04/20 18:01 01/04/20 17:30 01/04/20 17:03 01/04/20 17:00 01/04/20 16:30 01/04/20 16:00 01/04/20 15:31 01/04/20 15:00 01/04/20 14:45 01/04/20 14:30 01/04/20 14:00 01/04/20 13:30 01/04/20 13:00 01/04/20 12:30 01/04/20 12:28 01/04/20 12:00 - Physical Examination General: Other (vent to trach) Cardiac: Positive: irregularly irregular Extremities: Absent: edema - Labs and Meds Cardiac Enzymes 01/05/20 Range/Units 04:05 AST 28 (5-40) units/L CBC 01/05/20 Range/Units 04:05 WBC 11.7 H (4.5-11.0) K/mm3 RBC 3.50 L (3.65-5.03) M/mm3 Hgb 9.3 L (11.8-15.2) gm/dl Hct 29.9 L (35.5-45.6) % Plt Count 252 (140-440) K/mm3 Lymph # (Auto) 1.5 (1.2-5.4) K/mm3 [place] # (Auto) 1.1 H (0.0-0.8) K/mm3 Eos # (Auto) 0.3 (0.0-0.4) K/mm3 Baso # (Auto) 0.1 (0.0-0.1) K/mm3 Comprehensive Metabolic Panel 01/04/20 01/05/20 Range/Units 09:50 04:05 Sodium 151 H (137-145) mmol/L Potassium 3.6 (3.6-5.0) mmol/L Chloride 105.1 (98-107) mmol/L Carbon Dioxide 32 H 34 H (22-30) mmol/L BUN 14 (9-20) mg/dL Creatinine 0.7 L (0.8-1.3) mg/dL Glucose 95 (75-100) mg/dL Calcium 9.3 (8.4-10.2) mg/dL AST 28 (5-40) units/L ALT 59 H (7-56) units/L Alkaline Phosphatase 66 (35-129) units/L Total Protein 5.8 L (6.3-8.2) g/dL Albumin 2.6 L (3.9-5) g/dL - Allied health notes Allied health notes reviewed: RT <PETRONA SHAHID - Last Filed: 01/12/20 22:59> Assessment and Plan I SAWT HIS PT & AGREE WITH THE Dx & Tx PLAN. - Patient Problems (1) Acute respiratory failure Current Visit: Yes Status: Acute (2) Bilateral pneumonia Current Visit: Yes Status: Acute (3) COPD exacerbation Current Visit: No Status: Acute (4) Hypertension Current Visit: No Status: Acute Qualifiers: Hypertension type: essential hypertension Qualified Code(s): I10 - Essential (primary) hypertension (5) Cardiomyopathy Current Visit: Yes Status: Acute (6) Paroxysmal atrial fibrillation Current Visit: Yes Status: Acute Objective Vital Signs Temp Pulse Pulse Resp Resp BP Pulse Ox 01/12/20 22:00 78 18 97/67 100 10/20/20 21:45 76 23 98/64 100 10/20/20 21:30 56 L 22 96/60 95 10/20/20 21:15 60 22 100/61 95 10/20/20 21:00 63 21 100/64 96 10/20/20 20:45 76 18 100/70 100 10/20/20 20:30 83 19 107/76 10/20/20 20:24 83 98/71 10/20/20 20:21 83 98/71 100 10/20/20 20:15 79 22 98/71 99 10/20/20 20:09 98.4 F 10/20/20 20:00 77 84 24 20 94/70 99 10/20/20 19:45 79 21 102/71 99 10/20/20 19:30 79 26 H 102/69 97 10/20/20 19:15 84 20 107/75 99 10/20/20 19:00 86 23 103/75 98 10/20/20 18:45 76 25 H 94/66 97 10/20/20 18:30 71 21 99/62 96 10/20/20 18:15 66 21 103/65 95 10/20/20 18:00 65 22 102/63 96 10/20/20 17:45 77 19 99/68 99 10/20/20 17:42 10/20/20 17:38 81 96/70 98 10/20/20 17:30 83 22 96/70 97 10/20/20 17:15 82 20 105/73 96 10/20/20 17:00 83 22 101/68 96 10/20/20 16:45 83 22 104/67 95 10/20/20 16:30 83 21 106/63 96 10/20/20 16:15 84 21 105/75 98 10/20/20 16:00 98.6 F 82 82 22 104/73 96 10/20/20 15:45 82 21 100/69 95 10/20/20 15:30 83 20 103/70 96 10/20/20 15:16 82 101/72 10/20/20 15:15 83 21 101/72 96 10/20/20 15:00 82 21 106/66 97 10/20/20 14:45 83 21 99/71 96 10/20/20 14:30 82 20 105/68 96 10/20/20 14:15 81 21 101/68 98 10/20/20 14:00 81 21 102/67 95 10/20/20 13:45 85 21 108/71 96 10/20/20 13:30 82 19 100/69 99 10/20/20 13:15 82 20 100/68 95 10/20/20 13:00 82 21 97/69 95 10/20/20 12:45 81 19 97/69 94 10/20/20 12:30 81 21 103/70 93 10/20/20 12:15 87 25 H 117/71 93 10/20/20 12:00 98.1 F 87 87 25 H 122/78 94 10/20/20 11:45 95 H 21 117/83 97 10/20/20 11:30 89 21 113/73 97 10/20/20 11:16 86 18 105/75 98 10/20/20 11:15 85 21 105/75 96 10/20/20 11:00 83 24 106/73 97 10/20/20 10:45 84 23 116/69 94 10/20/20 10:30 95 H 21 127/85 97 10/20/20 10:15 85 24 124/81 96 10/20/20 10:02 87 120/75 10/20/20 10:00 87 24 120/75 95 10/20/20 09:45 87 22 118/76 96 10/20/20 09:30 82 23 111/75 94 10/20/20 09:15 82 24 115/76 94 10/20/20 09:00 88 23 117/81 96 10/20/20 08:45 94 H 14 130/79 97 10/20/20 08:33 85 22 119/79 100 10/20/20 08:30 89 26 H 119/79 100 10/20/20 08:15 83 21 113/77 99 10/20/20 08:00 98.3 F 82 80 17 103/73 97 10/20/20 07:45 83 24 113/77 99 10/20/20 07:30 83 21 112/73 99 10/20/20 07:15 84 19 111/74 100 10/20/20 07:00 84 19 122/74 99 10/20/20 06:45 85 21 117/76 99 10/20/20 06:30 86 21 122/79 99 10/20/20 06:15 87 20 116/83 99 10/20/20 06:00 91 H 21 125/84 100 10/20/20 05:45 87 19 115/80 98 10/20/20 05:30 83 19 118/75 97 10/20/20 05:15 89 20 122/78 97 10/20/20 05:00 92 H 22 123/81 98 10/20/20 04:45 98 H 18 117/80 99 10/20/20 04:31 89 21 117/80 98 10/20/20 04:23 88 117/80 98 10/20/20 04:15 87 16 117/80 98 10/20/20 04:00 98.4 F 85 88 19 111/82 97 10/20/20 03:57 10/20/20 03:45 84 22 100/74 98 10/20/20 03:30 86 21 107/75 98 10/20/20 03:15 85 20 107/76 98 10/20/20 03:00 84 21 111/74 98 10/20/20 02:45 83 20 110/74 99 10/20/20 02:30 82 20 105/71 98 10/20/20 02:15 78 19 95/69 98 10/20/20 02:00 79 19 100/69 97 10/20/20 01:45 84 21 111/75 98 10/20/20 01:30 85 22 116/84 97 10/20/20 01:15 78 19 98/72 99 10/20/20 01:00 73 19 91/65 99 10/20/20 00:45 75 18 96/68 99 10/20/20 00:30 79 18 102/75 96 10/20/20 00:15 76 18 94/68 99 10/20/20 00:05 76 100/67 100 10/20/20 00:00 77 76 18 22 100/67 99 10/19/20 23:45 76 20 92/66 98 10/19/20 23:39 98.2 F 10/19/20 23:30 77 20 99/67 100 10/19/20 23:15 82 18 100/73 100 10/19/20 23:03 77 21 88/61 100 10/19/20 23:00 76 19 88/61 100 Pulse Ox 10/20/20 22:00 1020/20 21:45 10/20/20 21:30 10/20/20 21:15 10/20/20 21:00 1020/20 20:45 1020/20 20:30 10/20/20 20:24 10/20/20 20:21 10/20/20 20:15 10/20/20 20:09 1020/20 20:00 1020/20 19:45 1020/20 19:30 1020/20 19:15 1020/20 19:00 1020/20 18:45 1020/20 18:30 1020/20 18:15 1020/20 18:00 1020/20 17:45 1020/20 17:42 99 1020/20 17:38 1020/20 17:30 1020/20 17:15 1020/20 17:00 1020/20 16:45 1020/20 16:30 1020/20 16:15 1020/20 16:00 1020/20 15:45 1020/20 15:30 1020/20 15:16 1020/20 15:15 1020/20 15:00 1020/20 14:45 1020/20 14:30 1020/20 14:15 1020/20 14:00 1020/20 13:45 1020/20 13:30 1020/20 13:15 1020/20 13:00 1020/20 12:45 1020/20 12:30 10/20/20 12:15 10/20/20 12:00 1020/20 11:45 1020/20 11:30 10/20/20 11:16 10/20/20 11:15 10/20/20 11:00 1020/20 10:45 1020/20 10:30 10/20/20 10:15 10/20/20 10:02 1020/20 10:00 1020/20 09:45 1020/20 09:30 1020/20 09:15 1020/20 09:00 1020/20 08:45 1020/20 08:33 1020/20 08:30 1020/20 08:15 01/12/20 08:00 01/12/20 07:45 01/12/20 07:30 01/12/20 07:15 01/12/20 07:00 01/12/20 06:45 01/12/20 06:30 01/12/20 06:15 01/12/20 06:00 01/12/20 05:45 01/12/20 05:30 01/12/20 05:15 01/12/20 05:00 01/12/20 04:45 01/12/20 04:31 01/12/20 04:23 01/12/20 04:15 01/12/20 04:00 01/12/20 03:57 99 01/12/20 03:45 01/12/20 03:30 01/12/20 03:15 01/12/20 03:00 01/12/20 02:45 01/12/20 02:30 01/12/20 02:15 01/12/20 02:00 01/12/20 01:45 01/12/20 01:30 01/12/20 01:15 01/12/20 01:00 01/12/20 00:45 01/12/20 00:30 01/12/20 00:15 01/12/20 00:05 01/12/20 00:00 01/11/20 23:45 01/11/20 23:39 01/11/20 23:30 01/11/20 23:15 01/11/20 23:03 01/11/20 23:00 - Labs and Meds Cardiac Enzymes 01/12/20 Range/Units 00:23 AST 16 (5-40) units/L CBC 01/12/20 01/12/20 Range/Units 00:23 04:18 WBC 9.3 8.8 (4.5-11.0) K/mm3 RBC 3.81 3.80 (3.65-5.03) M/mm3 Hgb 9.8 L 9.6 L (11.8-15.2) gm/dl Hct 31.6 L 30.9 L (35.5-45.6) % Plt Count 250 248 (140-440) K/mm3 Lymph # (Auto) 2.2 (1.2-5.4) K/mm3 [place] # (Auto) 0.7 (0.0-0.8) K/mm3 Eos # (Auto) 0.2 (0.0-0.4) K/mm3 Baso # (Auto) 0.1 (0.0-0.1) K/mm3 Comprehensive Metabolic Panel 01/12/20 01/12/20 Range/Units 00:23 04:18 Sodium 144 143 (137-145) mmol/L Potassium 3.6 3.8 (3.6-5.0) mmol/L Chloride 102.9 100.8 (98-107) mmol/L Carbon Dioxide 29 28 (22-30) mmol/L BUN 11 11 (9-20) mg/dL Creatinine 0.7 L 0.7 L (0.8-1.3) mg/dL Glucose 111 H 108 H (75-100) mg/dL Calcium 8.8 8.8 (8.4-10.2) mg/dL AST 16 (5-40) units/L ALT 22 (7-56) units/L Alkaline Phosphatase 59 (35-129) units/L Total Protein 6.3 (6.3-8.2) g/dL Albumin 2.6 L (3.9-5) g/dL
--- NOTE | 2020-01-05 13:52 | Cat Scan Report ---
CT abdomen pelvis w con INDICATION: Continued vomiting, small bowel dilatation noted on abdominal radiograph obtained earlier today. TECHNIQUE: All CT scans at this location are performed using the following dose modulation technique: Automated exposure control. Helical slices were obtained through the abdomen and pelvis following the administr ation of 100 cc of Omnipaque 300 COMPARISON: CTA of the chest dated 12/10/2019 FINDINGS: Abdomen: There are patchy parenchymal opacities noted in the upper lobes of the lung. There is consol idation in the lung bases which has improved since 12/09 but has not entirely resolved. There are smal l bilateral pleural effusions right greater than left. The liver, spleen, pancreas, adrenal glands, and kidneys show no acute abnormality. The aorta is norm al in diameter. There are scattered diverticula throughout the colon. There is a PEG tube in the stom ach. There are mildly dilated loops of small bowel involving the jejunum and ileum. The bowel is predomina ntly fluid-filled. The distal end terminal ileum are normal in caliber. The appearance is characteris tic of a partial mechanical small bowel obstruction. Pelvis: There are mildly dilated loops of small bowel which are fluid-filled. There is a small amount of free fluid. There are diverticula in the sigmoid colon. There is no inflammatory change. On review of bone windows, no acute osseous abnormalities are seen. IMPRESSION: There is a partial mechanical small bowel obstruction. There are airspace opacities noted in the lungs opacities in the upper lung zones have developed in t he interval may represent edema or pneumonia. Consolidation in the lung bases has improved since 12/09. There has been interval placement of PEG tube since 12/09. Signer Name: Jcarlos Ansari MD Signed: 01/05/2020 1:47 PM Workstation Name: [id number]
[2020-01-05] MEDS ORDERED: MAGNESIUM CITRATE 300 ML ORAL LIQD PO ONE (14:00)
--- NOTE | 2020-01-05 14:48 | Progress Note ---
Assessment and Plan _Partial SBO -Acute LLL PE -Acute RLE DVT -Persistent fevers; secondary to sepsis and acute PE/DVT -Severe sepsis; secondary to bilateral pneumonia, persistent fevers -Acute hypoxemic respiratory failure, on vent unable to wean -Bilateral pneumonia, community acquired, -Aspiration Pneumonia -Sustained SVT, on amiodarone -Acute on chronic systolic congestive heart failure -History of cerebrovascular accident. -Tobacco use disorder -Alcohol abuse with DT -Acute chronic obstructive pulmonary disease exacerbation. -Hypertension and hypertensive urgency at presentation. -History of arthritis. -Paroxysmal atrial fibrillation -Leukocytosis with possible sepsis. -Lactic acidosis. -Bleeding from ET tube -Oropharyngeal dysphagia -S/P Knee surgery -History of peptic Ulcer Surgery -DVT prophylaxis COVID-19 test; 11/24/2019; negative 11/26/2019; negative Plan Continue ventilatory support - Now s/p trach and PEG Aspiration precautions Continue to adjust amiodarone and metoprolol for suppression of paroxysmal atri al fibrillation. Continue anticoagulation Started back on vancomycin and zosyn BC 03/28 - coag negative staph ?contaminant. Sputum cultures pending. Low-dose Lasix as needed DVT/GI prophy Heparin/Protonix Plan of care reviewed with the patient's nurse BS consulted for partial SBO Closely monitor the patient and adjust management as needed The high probability of a clinically significant, sudden or life threatening deterioration of the [Respiratory, cardiovascular & neurological] system(s) required my full and direct attention, intervention and personal management. The aggregate critical care time was [33] minutes without overlap. Time includes spent on [x] Data Review and interpretation [x] Patient assessment and monitoring of vital signs [x] Documentation [x] Medication orders and management Brief History Patient is a 64-year-old male with known history of hypertension, COPD, history of coronary artery disease, CHF with ejection fraction of 20 to 25% in August 2018 presenting to the emergency room via EMS complaining of shortness of breath. Patient was found to be hypoxic and in respiratory distress. Patient was placed on CPAP in route to the hospital. Oxygen saturation was said to be 88%. Started on Solu-Medrol, Lasix and magnesium in ED, patient was also found to be lethargic with an oxygen saturation of about 91% on CPAP. He was subsequently intubated. Work-up in the emergency room including chest x-ray reveals bilateral pneumonia. He had an elevated white count of 14 and also had an elevated BNP. Patient admitted to the ICU and placed on empiric IV antibiotics for pneumonia. He tested negative for COVID-19 and placed on isolation precautions. Remains intubated on ventilatory support, sputum cultures positive for Pseudomonas, ID treated with cefepime and Vanco. His hospital course became complicated with acute PE, DVT, paroxysmal atrial fib - placed on heparin drip. Patient difficult to wean off, remains intubated. 11/25: Leukocytosis improving. Continue current management anticipate extubation possible today. 11/26. Still intubated. Failed SBT yesterday. Repeat COVID-19 test is negative. 11/27. CT head ordered for possible neuro status change is negative. More responsive as the day progressed as per RN. Chest xray today shows interval improvement. He is still on antibiotics - will complete regimen today. 11/28: Considering difficult extubation and severe cardiomyopathy, will obtain cardiology consult. Aspiration precautions, tube feeds held, continue antibiotics. 11/29: Still with intermittent fever but improving imaging, continue diuresis. 11/30; Extremely agitated when placed on PSV- SVT, hypertension. Patiet acknowledged that he drinks. IV Ativan given, CIWA protocol initiated. 12 lead ordered showed SVT, one dose of amiodarone ordered. continue to follow up cardiology recommendation 12/01: Patient remains on mechanical ventilation, getting SBT trial. Remains in SVT, started on amiodarone drip by cardiology. 12/02; patient is on mechanical ventilation and on spontaneous breathing trial. Cardiology started the patient on PO amiodarone. Patient is on cefepime. 12/03: patient is on mechanical ventilation. Cardiology started the patient on PO amiodarone for SVT. Patient is on cefepime, no fever overnight. 12/04: Patient is sedated and on mechanical ventilation. Patient had fever yesterday afternoon 102.3, ID changed his cefepime to meropenem. Heart rate is controlled, cardiology is following. Patient has paroxysmal atrial fibrillation and on amiodarone and metoprolol, subcu heparin for anticoagulation and will need oral anticoagulation once stable. 12/05: Sputum cultures positive for Pseudomonas, ID following 12/06; patient is febrile T-max 24 hours 102 F ,ID change antibiotics to cefepime and Vancomycin 12/07: resumed care. Na 149 today, start on 1/2 NS. cont current care 12/08: remains in a stable sinus rhythm and stable blood pressure, continue supportive care. wean off vent as tolerated. persistent fever - ordered CTA chest 12/09: noted bloody discharges from ET tube last night. CTA and LE venous doppler positive for acute PE and DVT. resume heparin drip, consult vascular for possible EKOS/ IVC filter. monitor h/h. cont SBT trial, wean off vent as tolerated. called but no answer 12/10: cont heparin drip for acute PE and DVT, follow vascular recommendation. monitor h/h, wean off vent as tolerated 12/11: o/n had bleeding from ET tube, cont to monitor h/h. vascular recommending medical Mx. called ; Nicolle Araiza [phone]. 12/12: H&H remained stable, patient on heparin drip. Discussed with yesterday. Discussed with critical care attending. Patient not tolerating SBT trial. Continue to wean off from vent as tolerated, follow clinically. Tolerating tube feeding 12/13: Continue heparin drip, wean off from vent as tolerated. Discussed with pulmonary attending if no improvement by the end of 3 weeks of intubation pa tient may need trach and PEG. Continue to provide supportive care, follow CBC and BMP. 12/14: Stop cefepime today, wean off from vent as tolerated. cont Heparin infusion, while monitoring for bleeding 12/15: Patient is not tolerating SBT trial, becoming apnic on CPAP. May need to place on trach and PEG. Continue heparin drip, monitor off antibiotics 12/16. Still maintained on vent. May need PEG and trach as her has been failed SBTs 12/17. Had low UO overnight. Started on tamsulosin. May need PEG and trach - defer to pulm. 12/18-. Plan for US thoracentesis to help with weaning. Remains on heparin drip for VTE. 12/20. Discussed with spouse today. He will get thoracentesis today. INR/PTT ordered. Heparin drip held. 12/21: planned for trach and PEG, cont supportive care, thoracentesis cancelled 12/22: cont supportive care, wean off from vent, daily SBT 12/23: tolerating SBT, possible extubation soon. cont supportive care 12/24: wean off vent as tolerated, daily SBT, follow clinically 12/25; cont to monitor, wean off vent as tolerated 12/26: Continue to monitor wean off vent as tolerated patient is tolerating SBT trial but not ready to wean off. 12/27: need trach and PEG, will f/u with GS, cont supportive care 12/28: pending trach/PEG 12/29: plan for trach and PEG on Saturday 12/30: Plan for trach and PEG. Temp 101F. Blood cultures, urinalysis and chest xray ordered. 12/31. Had afib with RVR overnight. Metoprolol dose has been increased. He is still on amiodarone. Plan for PEG tube placement today. Repeat chest x-ray shows worsening infiltrates. Started on the Lasix. Monitor fever now. Blood cultures negative so far. Urinalysis pending 01/01. Started on antibiotics as he had another fever. On vancomycin and zosyn. ID consulted. HR still in the 100s. Had trach and PEG placement on 12/31 with no complications. BC 03/28 - Coag negative staph? contaminant. 01/02. On antibiotics. ID consulted. HR still high. Cardiology adjusting HR control medications. 01/03. HR better. Heparin switched to DOAC. HR better. Started on bumex 01/04: c/o abdominal pain, not tolerating TF, had projectile vomiting few times. Abd xry/CT abd suggestive of partial SBO, reconsult surgery, place NG with suction, start iv fluid. Subjective Date of service: 01/05/20 Principal diagnosis: Ac hypoxemic resp failure; Pneumonia; PUI COVID-19; CHF; COPD; HTN Interval history: Patient seen and examined Patient intubated on trach Discussed with RN at the bedside H/H STABLE, patient TF on hold b/o Vomiting episode CT abd showed SBO Objective - Exam Narrative Exam: General appearance: Present: well-nourished, opens eyes to names and follows minor command - EENT Eyes: Present: PERRL, EOM intact. Absent: scleral icterus ENT: clear oral mucosa, dentition normal - Neck Neck: Present: supple, normal ROM - Respiratory Respiratory effort: normal, mechanical ventilation with trach Respiratory: bilateral: rales - Cardiovascular Rhythm: regular Heart Sounds: Present: S1 & S2, tachycardic. Absent: gallop, systolic murmur, diastolic murmur, rub - Extremities Extremities: no ischemia, pulses intact, pulses symmetrical, No edema, Full ROM Peripheral Pulses: within normal limits - Abdominal General gastrointestinal: Present: soft, + tender, distended, hypoactive bowel sounds. - Integumentary Integumentary: Present: clear, warm, dry. Absent: rash - Musculoskeletal Musculoskeletal: no joint swelling - Psychiatric Psychiatric: no agitation Neurology: no focal deficits - Constitutional Vitals: Vital Signs - 12hr 01/05/20 01/05/20 01/05/20 03:00 03:30 03:31 Temperature 99.1 F Pulse Rate 109 H 99 H Pulse Rate [ From Monitor] Respiratory Rate Blood Pressure 127/79 123/83 O2 Sat by Pulse 94 93 Oximetry 01/05/20 01/05/20 01/05/20 03:46 04:00 04:19 Temperature Pulse Rate 99 H 118 H 125 H Pulse Rate [ 125 H From Monitor] Respiratory 20 Rate Blood Pressure 123/83 130/76 O2 Sat by Pulse 96 94 97 Oximetry 01/05/20 01/05/20 01/05/20 04:30 05:01 05:30 Temperature Pulse Rate 115 H 136 H 144 H Pulse Rate [ From Monitor] Respiratory 24 15 Rate Blood Pressure 128/86 147/92 156/97 O2 Sat by Pulse 94 95 Oximetry 01/05/20 01/05/20 01/05/20 06:00 06:31 07:01 Temperature Pulse Rate 99 H 147 H Pulse Rate [ From Monitor] Respiratory 12 19 Rate Blood Pressure 157/78 128/78 126/82 O2 Sat by Pulse 95 96 100 Oximetry 01/05/20 01/05/20 01/05/20 08:00 08:20 12:17 Temperature 100.1 F H Pulse Rate 109 H 116 H Pulse Rate [ From Monitor] Respiratory Rate Blood Pressure 138/92 132/80 O2 Sat by Pulse 98 98 Oximetry - Labs CBC & Chem 7: 01/06/20 04:44 01/06/20 04:44 Labs: Abnormal lab results 01/05/20 01/05/20 01/05/20 Range/Units 04:05 04:05 05:19 WBC 11.7 H (4.5-11.0) K/mm3 RBC 3.50 L (3.65-5.03) M/mm3 Hgb 9.3 L (11.8-15.2) gm/dl Hct 29.9 L (35.5-45.6) % MCH 27 L (28-32) pg MCHC 31 L (32-34) % RDW 16.6 H (13.2-15.2) % Lymph % (Auto) 13.1 L (13.4-35.0) % [place] % (Auto) 9.7 H (0.0-7.3) % [place] # (Auto) 1.1 H (0.0-0.8) K/mm3 Seg Neutrophils % 74.0 H (40.0-70.0) % Seg Neutrophils # 8.6 H (1.8-7.7) K/mm3 Sodium 151 H (137-145) mmol/L Carbon Dioxide 34 H (22-30) mmol/L Creatinine 0.7 L (0.8-1.3) mg/dL POC Glucose 112 H (70-105) ALT 59 H (7-56) units/L Total Protein 5.8 L (6.3-8.2) g/dL Albumin 2.6 L (3.9-5) g/dL HEART Score - HEART Score Troponin: Troponin T < 0.010 ng/mL (0.00-0.029) 11/24/19 02:53
[2020-01-05] MEDS: ONDANSETRON 4 MG/2 ML INJ IV PRN (16:18)
[2020-01-05 17:10] LABS: Blood Urea Nitrogen 12 mg/dL (9-20); Calcium 9.5 mg/dL (8.4-10.2); Hemolysis Index 0
[2020-01-05 17:13] LABS: BUN/Creatinine Ratio 20
[2020-01-05] MEDS: D5W/0.45% NACL 1,000 ML IV SCH (18:54)
[2020-01-05] MEDS: ENOXAPARIN 120 MG/0.8 ML INJ SUB-Q SCH ×2 (19:00→21:40)
[2020-01-05] MEDS: POLYETHYLENE GLYCOL 3350 17 GM POWDER PO SCH (21:41)
[2020-01-05] MEDS: TAMSULOSIN 0.4 MG CAP PO SCH (21:41)
[2020-01-06 06:14] LABS: Basophils % (Auto) 0.5 % (0.0-1.8); Eosinophils # (Auto) 0.3 K/mm3 (0.0-0.4); Eosinophils % (Auto) 4.3 % (0.0-4.3); Hematocrit 28.7 % (35.5-45.6); Hemoglobin 8.9 gm/dl (11.8-15.2); Lymphocytes # (Auto) 1.3 K/mm3 (1.2-5.4); Lymphocytes % (Auto) 16.4 % (13.4-35.0); Mean Corpuscular HGB Conc 31 % (32-34); Mean Corpuscular Volume 86 fl (84-94); Monocytes # (Auto) 0.7 K/mm3 (0.0-0.8); Monocytes % (Auto) 9.4 % (0.0-7.3); Platelet Count 242 K/mm3 (140-440); Red Blood Count 3.36 M/mm3 (3.65-5.03); Red Cell Distribution Width 16.9 % (13.2-15.2)
[2020-01-06 06:18] LABS: Alanine Aminotransferase 45 units/L (7-56); Albumin 2.6 g/dL (3.9-5); Blood Urea Nitrogen 13 mg/dL (9-20); Calcium 9.5 mg/dL (8.4-10.2); Hemolysis Index 0
[2020-01-06 06:23] LABS: BUN/Creatinine Ratio 22
[2020-01-06] MEDS: PIPERACIL/TAZOBACTA 4.5/NS 100 4.5 GM/100 ML VIAL IV SCH ×3 (06:43→21:23)
[2020-01-06] MEDS: METOPROLOL TARTRATE 25 MG TAB FEEDTUBE SCH ×3 (06:43→21:25)
[2020-01-06] MEDS: BUMETANIDE 1 MG/4 ML INJ IV SCH (06:43)
[2020-01-06] MEDS: DOCUSATE SODIUM 100 MG/10 ML ORAL LIQD FEEDTUBE SCH ×2 (10:00→21:25)
--- NOTE | 2020-01-06 10:01 | Progress Note ---
<KACEY HICKEY - Last Filed: 01/06/20 10:00> Assessment and Plan Atrial fibrillation, paroxysmal on amiodarone and metoprolol Ischemic Cardiomyopathy, resolving re-echo this presentation reports an LVEF 40-45%. echo 08/2018: decreased LVEF 20-25%. Hx of CAD [facility] 12/2018: mild in-stent restenosis. No significant residual disease. Multifocal pneumonia negative COVID-19 test x 2 Respiratory failure Acute PE/DVT Anemia Recommendations: Continue amiodarone and metoprolol for paroxysmal atrial fibrillation. Otherwise, conservative cardiac management. Subjective Date of service: 01/06/20 Principal diagnosis: Ac hypoxemic resp failure; Pneumonia; PUI COVID-19; CHF; COPD; HTN Interval history: Sinus rhythm on telemetry. Objective Vital Signs Temp Pulse Pulse Resp BP Pulse Ox Pulse Ox 01/06/20 08:00 98.1 F 01/06/20 06:00 83 20 118/77 99 01/06/20 05:30 84 23 124/79 94 01/06/20 05:00 91 H 16 128/88 98 01/06/20 04:31 97 H 19 100 01/06/20 04:30 91 H 18 119/86 96 01/06/20 04:21 91 H 107/80 98 01/06/20 04:00 100.0 F H 89 15 107/80 100 01/06/20 03:30 77 15 107/71 99 01/06/20 03:00 77 19 113/70 96 01/06/20 02:30 78 19 106/71 89 01/06/20 02:00 81 22 111/71 97 01/06/20 01:30 82 17 113/75 01/06/20 01:00 92 H 16 129/90 98 01/06/20 00:30 93 H 21 128/93 98 01/06/20 00:15 97 H 19 100 01/06/20 00:01 98 H 14 129/93 100 01/06/20 00:00 100.0 F H 98 H 01/05/20 23:33 89 17 103/79 100 01/05/20 23:30 100 H 19 103/79 100 01/05/20 23:00 80 21 104/70 100 01/05/20 22:30 87 23 100/74 100 01/05/20 22:00 79 19 117/64 97 01/05/20 21:31 125 H 16 122/76 96 01/05/20 21:01 97 H 20 121/69 98 01/05/20 20:31 98 H 20 130/82 97 01/05/20 20:25 127 H 19 100 01/05/20 20:23 127 H 01/05/20 20:01 116 H 13 138/97 100 01/05/20 20:00 99.1 F 01/05/20 19:42 100 01/05/20 19:31 129 H 127/76 100 01/05/20 19:30 120 H 19 127/76 99 01/05/20 19:00 104 H 15 125/75 97 01/05/20 18:31 128 H 16 129/87 97 01/05/20 18:01 117 H 12 131/93 100 01/05/20 17:31 123 H 16 131/93 96 01/05/20 17:00 118 H 13 114/93 97 01/05/20 16:30 114 H 12 121/85 94 01/05/20 16:01 111 H 12 127/91 96 01/05/20 16:00 99 F 128 H 128 H 19 98 01/05/20 15:51 108 H 134/81 100 01/05/20 15:31 95 H 14 134/81 97 01/05/20 15:00 107 H 13 138/83 99 01/05/20 14:30 124 H 15 129/89 98 01/05/20 14:01 120 H 14 129/85 97 01/05/20 13:31 109 H 15 130/79 99 01/05/20 13:29 104 H 14 118/64 100 01/05/20 12:30 105 H 11 L 118/64 98 01/05/20 12:17 116 H 132/80 98 01/05/20 12:00 99.4 F 99 H 108 H 24 132/80 94 01/05/20 11:30 107 H 13 121/80 01/05/20 11:00 94 H 12 117/78 98 01/05/20 10:30 127 H 9 L 124/79 97 01/05/20 10:01 152 H 16 114/82 98 - Physical Examination General: Other (vent to trach) Cardiac: Positive: Reg Rate and Rhythm - Labs and Meds Cardiac Enzymes 01/06/20 Range/Units 04:44 AST 18 (5-40) units/L CBC 01/06/20 Range/Units 04:44 WBC 7.8 (4.5-11.0) K/mm3 RBC 3.36 L (3.65-5.03) M/mm3 Hgb 8.9 L (11.8-15.2) gm/dl Hct 28.7 L (35.5-45.6) % Plt Count 242 (140-440) K/mm3 Lymph # (Auto) 1.3 (1.2-5.4) K/mm3 [place] # (Auto) 0.7 (0.0-0.8) K/mm3 Eos # (Auto) 0.3 (0.0-0.4) K/mm3 Baso # (Auto) 0.0 (0.0-0.1) K/mm3 Comprehensive Metabolic Panel 01/05/20 01/06/20 Range/Units 16:04 04:44 Sodium 151 H 151 H (137-145) mmol/L Potassium 3.2 L 3.4 L (3.6-5.0) mmol/L Chloride 105.8 105.8 (98-107) mmol/L Carbon Dioxide 34 H 33 H (22-30) mmol/L BUN 12 13 (9-20) mg/dL Creatinine 0.6 L 0.6 L (0.8-1.3) mg/dL Glucose 97 118 H (75-100) mg/dL Calcium 9.5 9.5 (8.4-10.2) mg/dL AST 18 (5-40) units/L ALT 45 (7-56) units/L Alkaline Phosphatase 59 (35-129) units/L Total Protein 6.2 L (6.3-8.2) g/dL Albumin 2.6 L (3.9-5) g/dL - Allied health notes Allied health notes reviewed: RT <PETRONA SHAHID - Last Filed: 01/12/20 22:52> Assessment and Plan - Patient Problems (1) Acute respiratory failure Current Visit: Yes Status: Acute (2) Bilateral pneumonia Current Visit: Yes Status: Acute (3) COPD exacerbation Current Visit: No Status: Acute (4) Hypertension Current Visit: No Status: Acute Qualifiers: Hypertension type: essential hypertension Qualified Code(s): I10 - Essential (primary) hypertension (5) Cardiomyopathy Current Visit: Yes Status: Acute (6) Paroxysmal atrial fibrillation Current Visit: Yes Status: Acute Subjective Interval history: I SAWT HIS PT & AGREE WITH THE Dx & Tx PLAN. Objective Vital Signs Temp Pulse Pulse Resp Resp BP Pulse Ox 01/12/20 22:00 78 18 97/67 100 01/12/20 21:45 76 23 98/64 100 01/12/20 21:30 56 L 22 96/60 95 01/12/20 21:15 60 22 100/61 95 01/12/20 21:00 63 21 100/64 96 01/12/20 20:45 76 18 100/70 100 01/12/20 20:30 83 19 107/76 01/12/20 20:24 83 98/71 01/12/20 20:21 83 98/71 100 01/12/20 20:15 79 22 98/71 99 01/12/20 20:09 98.4 F 01/12/20 20:00 77 84 24 20 94/70 99 01/12/20 19:45 79 21 102/71 99 01/12/20 19:30 79 26 H 102/69 97 01/12/20 19:15 84 20 107/75 99 01/12/20 19:00 86 23 103/75 98 01/12/20 18:45 76 25 H 94/66 97 01/12/20 18:30 71 21 99/62 96 01/12/20 18:15 66 21 103/65 95 01/12/20 18:00 65 22 102/63 96 01/12/20 17:45 77 19 99/68 99 01/12/20 17:42 01/12/20 17:38 81 96/70 98 01/12/20 17:30 83 22 96/70 97 01/12/20 17:15 82 20 105/73 96 01/12/20 17:00 83 22 101/68 96 01/12/20 16:45 83 22 104/67 95 20 16:30 83 21 106/63 96 20 16:15 84 21 105/75 98 01/12/20 16:00 98.6 F 82 82 22 104/73 96 01/12/20 15:45 82 21 100/69 95 01/12/20 15:30 83 20 103/70 96 10/20/20 15:16 82 101/72 10/20/20 15:15 83 21 101/72 96 10/20/20 15:00 82 21 106/66 97 10/20/20 14:45 83 21 99/71 96 10/20/20 14:30 82 20 105/68 96 10/20/20 14:15 81 21 101/68 98 10/20/20 14:00 81 21 102/67 95 10/20/20 13:45 85 21 108/71 96 10/20/20 13:30 82 19 100/69 99 10/20/20 13:15 82 20 100/68 95 10/20/20 13:00 82 21 97/69 95 10/20/20 12:45 81 19 97/69 94 10/20/20 12:30 81 21 103/70 93 10/20/20 12:15 87 25 H 117/71 93 10/20/20 12:00 98.1 F 87 87 25 H 122/78 94 10/20/20 11:45 95 H 21 117/83 97 10/20/20 11:30 89 21 113/73 97 10/20/20 11:16 86 18 105/75 98 10/20/20 11:15 85 21 105/75 96 10/20/20 11:00 83 24 106/73 97 10/20/20 10:45 84 23 116/69 94 10/20/20 10:30 95 H 21 127/85 97 10/20/20 10:15 85 24 124/81 96 10/20/20 10:02 87 120/75 10/20/20 10:00 87 24 120/75 95 10/20/20 09:45 87 22 118/76 96 10/20/20 09:30 82 23 111/75 94 10/20/20 09:15 82 24 115/76 94 10/20/20 09:00 88 23 117/81 96 10/20/20 08:45 94 H 14 130/79 97 10/20/20 08:33 85 22 119/79 100 10/20/20 08:30 89 26 H 119/79 100 10/20/20 08:15 83 21 113/77 99 10/20/20 08:00 98.3 F 82 80 17 103/73 97 10/20/20 07:45 83 24 113/77 99 10/20/20 07:30 83 21 112/73 99 10/20/20 07:15 84 19 111/74 100 10/20/20 07:00 84 19 122/74 99 10/20/20 06:45 85 21 117/76 99 10/20/20 06:30 86 21 122/79 99 10/20/20 06:15 87 20 116/83 99 10/20/20 06:00 91 H 21 125/84 100 10/20/20 05:45 87 19 115/80 98 10/20/20 05:30 83 19 118/75 97 10/20/20 05:15 89 20 122/78 97 10/20/20 05:00 92 H 22 123/81 98 10/20/20 04:45 98 H 18 117/80 99 10/20/20 04:31 89 21 117/80 98 10/20/20 04:23 88 117/80 98 10/20/20 04:15 87 16 117/80 98 10/20/20 04:00 98.4 F 85 88 19 111/82 97 10/20/20 03:57 10/20/20 03:45 84 22 100/74 98 10/20/20 03:30 86 21 107/75 98 10/20/20 03:15 85 20 107/76 98 10/20/20 03:00 84 21 111/74 98 10/20/20 02:45 83 20 110/74 99 10/20/20 02:30 82 20 105/71 98 10/20/20 02:15 78 19 95/69 98 10/20/20 02:00 79 19 100/69 97 10/20/20 01:45 84 21 111/75 98 10/20/20 01:30 85 22 116/84 97 10/20/20 01:15 78 19 98/72 99 10/20/20 01:00 73 19 91/65 99 10/20/20 00:45 75 18 96/68 99 10/20/20 00:30 79 18 102/75 96 10/20/20 00:15 76 18 94/68 99 10/20/20 00:05 76 100/67 100 10/20/20 00:00 77 76 18 22 100/67 99 10/19/20 23:45 76 20 92/66 98 01/11/20 23:39 98.2 F 01/11/20 23:30 77 20 99/67 100 20 23:15 82 18 100/73 100 20 23:03 77 21 88/61 100 20 23:00 76 19 88/61 100 Pulse Ox 20 22:00 2020 21:45 2020 21:30 2020 21:15 2020 21:00 20 20:45 2020 20:30 2020 20:24 20 20:21 20 20:15 20 20:09 20 20:00 20 19:45 2020 19:30 2020 19:15 2020 19:00 20 18:45 20 18:30 20 18:15 20 18:00 20 17:45 20 17:42 99 20 17:38 20 17:30 20 17:15 20 17:00 01/12/20 16:45 20 16:30 20 16:15 20 16:00 20 15:45 20 15:30 2020 15:16 20 15:15 2020 15:00 20 14:45 2020 14:30 2020 14:15 2020 14:00 2020 13:45 20/20 13:30 2020 13:15 2020 13:00 2020 12:45 2020 12:30 20/20 12:15 20/20 12:00 2020 11:45 20/20 11:30 20/20 11:16 2020 11:15 2020 11:00 2020 10:45 2020 10:30 1020/20 10:15 01/12/20 10:02 01/12/20 10:00 01/12/20 09:45 01/12/20 09:30 01/12/20 09:15 01/12/20 09:00 01/12/20 08:45 01/12/20 08:33 01/12/20 08:30 01/12/20 08:15 01/12/20 08:00 01/12/20 07:45 01/12/20 07:30 01/12/20 07:15 01/12/20 07:00 01/12/20 06:45 01/12/20 06:30 01/12/20 06:15 01/12/20 06:00 01/12/20 05:45 01/12/20 05:30 01/12/20 05:15 01/12/20 05:00 01/12/20 04:45 01/12/20 04:31 01/12/20 04:23 01/12/20 04:15 01/12/20 04:00 01/12/20 03:57 99 01/12/20 03:45 01/12/20 03:30 01/12/20 03:15 01/12/20 03:00 01/12/20 02:45 01/12/20 02:30 01/12/20 02:15 01/12/20 02:00 01/12/20 01:45 01/12/20 01:30 01/12/20 01:15 01/12/20 01:00 01/12/20 00:45 01/12/20 00:30 01/12/20 00:15 01/12/20 00:05 01/12/20 00:00 01/11/20 23:45 01/11/20 23:39 01/11/20 23:30 01/11/20 23:15 01/11/20 23:03 01/11/20 23:00 - Labs and Meds Cardiac Enzymes 01/12/20 Range/Units 00:23 AST 16 (5-40) units/L CBC 01/12/20 01/12/20 Range/Units 00:23 04:18 WBC 9.3 8.8 (4.5-11.0) K/mm3 RBC 3.81 3.80 (3.65-5.03) M/mm3 Hgb 9.8 L 9.6 L (11.8-15.2) gm/dl Hct 31.6 L 30.9 L (35.5-45.6) % Plt Count 250 248 (140-440) K/mm3 Lymph # (Auto) 2.2 (1.2-5.4) K/mm3 [place] # (Auto) 0.7 (0.0-0.8) K/mm3 Eos # (Auto) 0.2 (0.0-0.4) K/mm3 Baso # (Auto) 0.1 (0.0-0.1) K/mm3 Comprehensive Metabolic Panel 01/12/20 01/12/20 Range/Units 00:23 04:18 Sodium 144 143 (137-145) mmol/L Potassium 3.6 3.8 (3.6-5.0) mmol/L Chloride 102.9 100.8 (98-107) mmol/L Carbon Dioxide 29 28 (22-30) mmol/L BUN 11 11 (9-20) mg/dL Creatinine 0.7 L 0.7 L (0.8-1.3) mg/dL Glucose 111 H 108 H (75-100) mg/dL Calcium 8.8 8.8 (8.4-10.2) mg/dL AST 16 (5-40) units/L ALT 22 (7-56) units/L Alkaline Phosphatase 59 (35-129) units/L Total Protein 6.3 (6.3-8.2) g/dL Albumin 2.6 L (3.9-5) g/dL
--- NOTE | 2020-01-06 10:10 | Progress Note ---
Assessment and Plan Acute hypoxemic respiratory failure Bilateral pneumonia, community acquired. Acute LLL branch P.E. Acute DVT Person under investigation for COVID-19 infection. Acute congestive heart failure exacerbation. History of cerebrovascular accident. Acute chronic obstructive pulmonary disease exacerbation. Hypertension and hypertensive urgency at presentation. History of arthritis. Leukocytosis. Lactic acidosis. Oropharyngeal dysphagia - continue full anticoagulation with Lovenox - tentatively t-pioerce trials in am - continue NGT to LIS - aggressive electrolyte replacement re: Ileus - resume scopolamine patch - continue care as below otherwise; - continue daily SAT's and SBT assessment as tolerated - continue seroquel for anxiolysis / delirium - COVID isolation per facility protocol - prn diuresis while following electrolytes / I's & O's - continue to wean oxygen for O2 sat's > 92% - continue bronchodilators with routine trach care and pulmonary hygiene per RT - VAP bundle addressed (Aspiration precautions, HOB >40) - continue to wean per pulmonary driven protocols - sedation target is RASS 0 to -1 - continue prn analgesia per CPOT score - follow clinically re: fever curves / trend WBC - Avoid delirium (no benzodiazepines if they can be avoided) - Maintain sleep-wake cycle - enteral nutrition at goal rate as tolerated - continue accucheck's with glycemic control per SSI for target blood glucose goal of 140-180 mg/dL while critically ill; Avoid hypoglycemia - for VTE he is on IV Heparin - continue stress ulcer prophylaxis with Famotidine - continue mobility protocols for pressure ulcer prophylaxis - continue fall precautions - continue wound care management per RN / WCT - Supportive transfusions to keep HgB>7g/dL - CXR's and ABG's prn - Continue to monitor neurologic function - Continue chronic home medications - Continue all supportive care ........ re-evaluate in am & prn CONDITION: CRITICAL PROGNOSIS: GUARDED CODE STATUS: FULL CODE The high probability of a clinically significant, sudden or life threatening deterioration of the [Respiratory, cardiovascular & neurological] system(s) re quired my full and direct attention, intervention and personal management. The aggregate critical care time was [35] minutes without overlap. Time includes spent on [x] Data Review and interpretation [x] Patient assessment and monitoring of vital signs [x] Documentation [x] Medication orders and management Subjective Date of service: 01/06/20 Principal diagnosis: Ac hypoxemic resp failure; Pneumonia; PUI COVID-19; CHF; COPD; HTN Interval history: Patient is seen today for: Acute hypoxemic respiratory failure; Adan. Pneumonia (CAP); PUI COVID-19 infection; AE-CHF; AE-COPD; H/O CVA; HTN Seen and examined at bedside; 24 hour events reviewed; nursing and respiratory care staff consulted; no adverse overnight events reported to me; resting peacefully in bed; remains on MVS; s/p trach; on SBT and tolerating well; No N/V/F/C Objective Vital Signs - 12hr 01/05/20 01/05/20 01/05/20 22:30 23:00 23:30 Temperature Pulse Rate 87 80 100 H Pulse Rate [ From Monitor] Respiratory 23 21 19 Rate Blood Pressure 100/74 104/70 103/79 O2 Sat by Pulse 100 100 100 Oximetry 01/05/20 01/06/20 01/06/20 23:33 00:00 00:01 Temperature 100.0 F H Pulse Rate 89 98 H 98 H Pulse Rate [ From Monitor] Respiratory 17 14 Rate Blood Pressure 103/79 129/93 O2 Sat by Pulse 100 100 Oximetry 01/06/20 01/06/20 01/06/20 00:15 00:30 01:00 Temperature Pulse Rate 93 H 92 H Pulse Rate [ 97 H From Monitor] Respiratory 19 21 16 Rate Blood Pressure 128/93 129/90 O2 Sat by Pulse 100 98 98 Oximetry 01/06/20 01/06/20 01/06/20 01:30 02:00 02:30 Temperature Pulse Rate 82 81 78 Pulse Rate [ From Monitor] Respiratory 17 22 19 Rate Blood Pressure 113/75 111/71 106/71 O2 Sat by Pulse 97 89 Oximetry 01/06/20 01/06/20 01/06/20 03:00 03:30 04:00 Temperature 100.0 F H Pulse Rate 77 77 89 Pulse Rate [ From Monitor] Respiratory 19 15 15 Rate Blood Pressure 113/70 107/71 107/80 O2 Sat by Pulse 96 99 100 Oximetry 01/06/20 01/06/20 01/06/20 04:21 04:30 04:31 Temperature Pulse Rate 91 H 91 H Pulse Rate [ 97 H From Monitor] Respiratory 18 19 Rate Blood Pressure 107/80 119/86 O2 Sat by Pulse 98 96 100 Oximetry 01/06/20 01/06/20 01/06/20 05:00 05:30 06:00 Temperature Pulse Rate 91 H 84 83 Pulse Rate [ From Monitor] Respiratory 16 23 20 Rate Blood Pressure 128/88 124/79 118/77 O2 Sat by Pulse 98 94 99 Oximetry 01/06/20 08:00 Temperature 98.1 F Pulse Rate Pulse Rate [ From Monitor] Respiratory Rate Blood Pressure O2 Sat by Pulse Oximetry Constitutional: no acute distress, alert, other (elderly and obese male, normocephalic with mildly increased respiratory effort at rest on MVS) Eyes: non-icteric ENT: oropharynx moist, other (+ midline tracheostomy ) Neck: supple, no JVD Effort: mildly labored Ascultation: Bilateral: diminished breath sounds, rhonchi, other (mild to moderate secretions) Percussion: Bilateral: not dull Cardiovascular: irregular rhythm Gastrointestinal: normoactive bowel sounds, soft, non-tender, non-distended Integumentary: normal Extremities: no cyanosis, pulses normal, no ischemia or petechiae, edema (pedal and peripheral) Neurologic: non-focal exam (moves all extremities with extreme agitation), pupils equal and round, motor strength normal and Psychiatric: mood appropriate, affect normal CBC and BMP: 01/06/20 04:44 01/06/20 04:44 ABG, PT/INR, D-dimer: ABG ABG pH 7.415 pH Units (7.350-7.450) 01/03/20 18:30 POC ABG pCO2 52.9 mmHg (32.0-48.0) H 12/22/19 03:22 ABG pCO2 57.6 mm Hg 01/03/20 18:30 POC ABG pO2 52.3 mmHg (83-108) L 12/22/19 03:22 ABG pO2 70.7 mm Hg (80.0-90.0) L 01/03/20 18:30 POC ABG HCO3 33.4 12/22/19 03:22 ABG O2 Saturation 94.4 % (95.0-99.0) L 01/03/20 18:30 PT/INR, D-dimer PT 13.8 Sec. (12.2-14.9) 12/21/19 10:13 INR 1.05 (0.87-1.13) 12/21/19 10:13 Abnormal lab findings: Abnormal Labs 11/24/19 11/24/19 11/24/19 02:53 02:53 03:45 WBC 14.3 H RBC Hgb Hct MCHC RDW 17.2 H MCH Lymph % (Auto) Perry % (Auto) Perry # Eos # Lymph # (Auto) Perry # (Auto) Eos # (Auto) Seg Neutrophils % Seg Neuts % (Manual) Baso # (Auto) Lymphocytes % (Manual) Monocytes % (Manual) Eosinophils % (Manual) Basophils % (Manual) Seg Neutrophils # Seg Neutrophils # Man 8.3 H Lymphocytes # (Manual) Monocytes # (Manual) 0.9 H Eosinophils # (Manual) Nucleated RBC % Basophils # (Manual) APTT Heparin Anti-Xa Level ABG pH 7.313 L POC ABG pO2 ABG pO2 102.8 H ABG HCO3 ABG O2 Saturation ABG Base Excess -2.9 L POC ABG pCO2 ABG Hemoglobin ABG Oxyhemoglobin Oxyhemoglobin 93.9 L Sodium Potassium Chloride Carbon Dioxide BUN Creatinine Glucose 195 H POC Glucose Lactic Acid Calcium Phosphorus Magnesium AST ALT Lactate Dehydrogenase CK-MB (CK-2) 4.3 H C-Reactive Protein NT-Pro-B Natriuret Pep 1181 H Total Protein Albumin Urine WBC (Auto) 11/24/19 11/24/19 11/24/19 04:53 04:53 10:37 WBC RBC Hgb Hct MCHC RDW MCH Lymph % (Auto) Perry % (Auto) Perry # Eos # Lymph # (Auto) Perry # (Auto) Eos # (Auto) Seg Neutrophils % Seg Neuts % (Manual) Baso # (Auto) Lymphocytes % (Manual) Monocytes % (Manual) Eosinophils % (Manual) Basophils % (Manual) Seg Neutrophils # Seg Neutrophils # Man Lymphocytes # (Manual) Monocytes # (Manual) Eosinophils # (Manual) Nucleated RBC % Basophils # (Manual) APTT Heparin Anti-Xa Level ABG pH POC ABG pO2 ABG pO2 ABG HCO3 ABG O2 Saturation ABG Base Excess POC ABG pCO2 ABG Hemoglobin ABG Oxyhemoglobin Oxyhemoglobin Sodium Potassium Chloride Carbon Dioxide BUN Creatinine Glucose 162 H POC Glucose Lactic Acid 2.40 H* 2.50 H* Calcium Phosphorus Magnesium AST ALT Lactate Dehydrogenase 240 H CK-MB (CK-2) C-Reactive Protein NT-Pro-B Natriuret Pep Total Protein Albumin Urine WBC (Auto) 09/01/20 09/01/20 09/01/20 12:21 14:50 19:54 WBC RBC Hgb Hct MCHC RDW MCH Lymph % (Auto) Perry % (Auto) Perry # Eos # Lymph # (Auto) Perry # (Auto) Eos # (Auto) Seg Neutrophils % Seg Neuts % (Manual) Baso # (Auto) Lymphocytes % (Manual) Monocytes % (Manual) Eosinophils % (Manual) Basophils % (Manual) Seg Neutrophils # Seg Neutrophils # Man Lymphocytes # (Manual) Monocytes # (Manual) Eosinophils # (Manual) Nucleated RBC % Basophils # (Manual) APTT Heparin Anti-Xa Level ABG pH POC ABG pO2 ABG pO2 ABG HCO3 ABG O2 Saturation ABG Base Excess POC ABG pCO2 ABG Hemoglobin ABG Oxyhemoglobin Oxyhemoglobin Sodium Potassium Chloride Carbon Dioxide BUN Creatinine Glucose POC Glucose 145 H 143 H 124 H Lactic Acid Calcium Phosphorus Magnesium AST ALT Lactate Dehydrogenase CK-MB (CK-2) C-Reactive Protein NT-Pro-B Natriuret Pep Total Protein Albumin Urine WBC (Auto) 11/25/19 11/25/19 11/25/19 00:18 03:18 05:11 WBC 13.7 H RBC Hgb Hct MCHC RDW 17.1 H MCH Lymph % (Auto) 10.8 L Perry % (Auto) 8.7 H Perry # 1.2 H Eos # Lymph # (Auto) Perry # (Auto) Eos # (Auto) Seg Neutrophils % 80.2 H Seg Neuts % (Manual) Baso # (Auto) Lymphocytes % (Manual) Monocytes % (Manual) Eosinophils % (Manual) Basophils % (Manual) Seg Neutrophils # 11.0 H Seg Neutrophils # Man Lymphocytes # (Manual) Monocytes # (Manual) Eosinophils # (Manual) Nucleated RBC % Basophils # (Manual) APTT Heparin Anti-Xa Level ABG pH 7.333 L POC ABG pO2 ABG pO2 61.2 L ABG HCO3 ABG O2 Saturation 90.2 L ABG Base Excess POC ABG pCO2 ABG Hemoglobin 13.7 L ABG Oxyhemoglobin Oxyhemoglobin 88.2 L Sodium Potassium Chloride Carbon Dioxide BUN Creatinine Glucose POC Glucose 109 H Lactic Acid Calcium Phosphorus Magnesium AST ALT Lactate Dehydrogenase CK-MB (CK-2) C-Reactive Protein NT-Pro-B Natriuret Pep Total Protein Albumin Urine WBC (Auto) 11/25/19 11/25/19 11/26/19 05:11 11:40 03:12 WBC RBC Hgb Hct MCHC RDW MCH Lymph % (Auto) Perry % (Auto) Perry # Eos # Lymph # (Auto) Perry # (Auto) Eos # (Auto) Seg Neutrophils % Seg Neuts % (Manual) Baso # (Auto) Lymphocytes % (Manual) Monocytes % (Manual) Eosinophils % (Manual) Basophils % (Manual) Seg Neutrophils # Seg Neutrophils # Man Lymphocytes # (Manual) Monocytes # (Manual) Eosinophils # (Manual) Nucleated RBC % Basophils # (Manual) APTT Heparin Anti-Xa Level ABG pH POC ABG pO2 ABG pO2 155.1 H ABG HCO3 27.8 H ABG O2 Saturation ABG Base Excess POC ABG pCO2 ABG Hemoglobin 12.2 L ABG Oxyhemoglobin Oxyhemoglobin Sodium Potassium Chloride Carbon Dioxide BUN 23 H Creatinine Glucose 110 H POC Glucose 108 H Lactic Acid Calcium Phosphorus Magnesium AST ALT Lactate Dehydrogenase CK-MB (CK-2) C-Reactive Protein NT-Pro-B Natriuret Pep Total Protein Albumin Urine WBC (Auto) 11/26/19 11/26/19 11/26/19 06:17 10:43 10:43 WBC 11.4 H RBC Hgb Hct MCHC RDW 17.1 H MCH Lymph % (Auto) Perry % (Auto) Perry # Eos # Lymph # (Auto) Perry # (Auto) Eos # (Auto) Seg Neutrophils % Seg Neuts % (Manual) Baso # (Auto) Lymphocytes % (Manual) Monocytes % (Manual) Eosinophils % (Manual) Basophils % (Manual) Seg Neutrophils # Seg Neutrophils # Man Lymphocytes # (Manual) Monocytes # (Manual) Eosinophils # (Manual) Nucleated RBC % Basophils # (Manual) APTT Heparin Anti-Xa Level ABG pH POC ABG pO2 ABG pO2 ABG HCO3 ABG O2 Saturation ABG Base Excess POC ABG pCO2 ABG Hemoglobin ABG Oxyhemoglobin Oxyhemoglobin Sodium Potassium Chloride Carbon Dioxide BUN 29 H Creatinine Glucose POC Glucose 107 H Lactic Acid Calcium Phosphorus Magnesium AST ALT Lactate Dehydrogenase CK-MB (CK-2) C-Reactive Protein NT-Pro-B Natriuret Pep Total Protein Albumin Urine WBC (Auto) 11/26/19 11/27/19 11/27/19 17:11 01:53 04:11 WBC RBC Hgb Hct MCHC RDW MCH Lymph % (Auto) Perry % (Auto) Perry # Eos # Lymph # (Auto) Perry # (Auto) Eos # (Auto) Seg Neutrophils % Seg Neuts % (Manual) Baso # (Auto) Lymphocytes % (Manual) Monocytes % (Manual) Eosinophils % (Manual) Basophils % (Manual) Seg Neutrophils # Seg Neutrophils # Man Lymphocytes # (Manual) Monocytes # (Manual) Eosinophils # (Manual) Nucleated RBC % Basophils # (Manual) APTT Heparin Anti-Xa Level ABG pH POC ABG pO2 ABG pO2 ABG HCO3 29.2 H ABG O2 Saturation ABG Base Excess 3.4 H POC ABG pCO2 ABG Hemoglobin 13.3 L ABG Oxyhemoglobin Oxyhemoglobin 94.5 L Sodium Potassium Chloride Carbon Dioxide BUN Creatinine Glucose POC Glucose 113 H 108 H Lactic Acid Calcium Phosphorus Magnesium AST ALT Lactate Dehydrogenase CK-MB (CK-2) C-Reactive Protein NT-Pro-B Natriuret Pep Total Protein Albumin Urine WBC (Auto) 11/27/19 11/28/19 11/28/19 05:27 05:00 05:25 WBC RBC Hgb Hct MCHC RDW MCH Lymph % (Auto) Perry % (Auto) Perry # Eos # Lymph # (Auto) Perry # (Auto) Eos # (Auto) Seg Neutrophils % Seg Neuts % (Manual) Baso # (Auto) Lymphocytes % (Manual) Monocytes % (Manual) Eosinophils % (Manual) Basophils % (Manual) Seg Neutrophils # Seg Neutrophils # Man Lymphocytes # (Manual) Monocytes # (Manual) Eosinophils # (Manual) Nucleated RBC % Basophils # (Manual) APTT Heparin Anti-Xa Level ABG pH POC ABG pO2 68.1 L ABG pO2 ABG HCO3 ABG O2 Saturation ABG Base Excess POC ABG pCO2 ABG Hemoglobin ABG Oxyhemoglobin 91.2 L Oxyhemoglobin Sodium Potassium Chloride Carbon Dioxide BUN Creatinine Glucose POC Glucose 111 H 110 H Lactic Acid Calcium Phosphorus Magnesium AST ALT Lactate Dehydrogenase CK-MB (CK-2) C-Reactive Protein NT-Pro-B Natriuret Pep Total Protein Albumin Urine WBC (Auto) 11/28/19 11/28/19 11/28/19 12:08 13:47 13:47 WBC 11.3 H RBC Hgb Hct MCHC RDW 16.1 H MCH Lymph % (Auto) Perry % (Auto) 9.9 H Perry # 1.1 H Eos # Lymph # (Auto) Perry # (Auto) Eos # (Auto) Seg Neutrophils % 71.4 H Seg Neuts % (Manual) Baso # (Auto) Lymphocytes % (Manual) Monocytes % (Manual) Eosinophils % (Manual) Basophils % (Manual) Seg Neutrophils # 8.1 H Seg Neutrophils # Man Lymphocytes # (Manual) Monocytes # (Manual) Eosinophils # (Manual) Nucleated RBC % Basophils # (Manual) APTT Heparin Anti-Xa Level ABG pH POC ABG pO2 ABG pO2 ABG HCO3 ABG O2 Saturation ABG Base Excess POC ABG pCO2 ABG Hemoglobin ABG Oxyhemoglobin Oxyhemoglobin Sodium Potassium Chloride Carbon Dioxide BUN 23 H Creatinine Glucose 123 H POC Glucose 112 H Lactic Acid Calcium Phosphorus Magnesium AST ALT Lactate Dehydrogenase CK-MB (CK-2) C-Reactive Protein NT-Pro-B Natriuret Pep Total Protein Albumin 3.7 L Urine WBC (Auto) 11/28/19 11/29/19 11/29/19 17:26 03:55 17:04 WBC RBC Hgb Hct MCHC RDW MCH Lymph % (Auto) Perry % (Auto) Perry # Eos # Lymph # (Auto) Perry # (Auto) Eos # (Auto) Seg Neutrophils % Seg Neuts % (Manual) Baso # (Auto) Lymphocytes % (Manual) Monocytes % (Manual) Eosinophils % (Manual) Basophils % (Manual) Seg Neutrophils # Seg Neutrophils # Man Lymphocytes # (Manual) Monocytes # (Manual) Eosinophils # (Manual) Nucleated RBC % Basophils # (Manual) APTT Heparin Anti-Xa Level ABG pH POC ABG pO2 ABG pO2 65.7 L ABG HCO3 28.3 H ABG O2 Saturation 93.9 L ABG Base Excess 3.6 H POC ABG pCO2 ABG Hemoglobin 13.3 L ABG Oxyhemoglobin Oxyhemoglobin 91.5 L Sodium Potassium Chloride Carbon Dioxide BUN Creatinine Glucose POC Glucose 123 H 119 H Lactic Acid Calcium Phosphorus Magnesium AST ALT Lactate Dehydrogenase CK-MB (CK-2) C-Reactive Protein NT-Pro-B Natriuret Pep Total Protein Albumin Urine WBC (Auto) 11/30/19 11/30/19 11/30/19 04:17 04:17 04:56 WBC 13.4 H RBC Hgb Hct MCHC RDW 15.6 H MCH Lymph % (Auto) Perry % (Auto) Perry # Eos # Lymph # (Auto) Perry # (Auto) Eos # (Auto) Seg Neutrophils % Seg Neuts % (Manual) Baso # (Auto) Lymphocytes % (Manual) Monocytes % (Manual) Eosinophils % (Manual) Basophils % (Manual) Seg Neutrophils # Seg Neutrophils # Man Lymphocytes # (Manual) Monocytes # (Manual) Eosinophils # (Manual) Nucleated RBC % Basophils # (Manual) APTT Heparin Anti-Xa Level ABG pH POC ABG pO2 ABG pO2 56.3 L ABG HCO3 29.3 H ABG O2 Saturation 91.5 L ABG Base Excess 4.7 H POC ABG pCO2 ABG Hemoglobin 12.1 L ABG Oxyhemoglobin Oxyhemoglobin 89.2 L Sodium 147 H Potassium Chloride Carbon Dioxide BUN 30 H Creatinine Glucose 124 H POC Glucose Lactic Acid Calcium Phosphorus Magnesium AST ALT Lactate Dehydrogenase CK-MB (CK-2) C-Reactive Protein NT-Pro-B Natriuret Pep Total Protein Albumin 3.8 L Urine WBC (Auto) 11/30/19 11/30/19 11/30/19 05:51 11:54 18:17 WBC RBC Hgb Hct MCHC RDW MCH Lymph % (Auto) Perry % (Auto) Perry # Eos # Lymph # (Auto) Perry # (Auto) Eos # (Auto) Seg Neutrophils % Seg Neuts % (Manual) Baso # (Auto) Lymphocytes % (Manual) Monocytes % (Manual) Eosinophils % (Manual) Basophils % (Manual) Seg Neutrophils # Seg Neutrophils # Man Lymphocytes # (Manual) Monocytes # (Manual) Eosinophils # (Manual) Nucleated RBC % Basophils # (Manual) APTT Heparin Anti-Xa Level ABG pH POC ABG pO2 ABG pO2 ABG HCO3 ABG O2 Saturation ABG Base Excess POC ABG pCO2 ABG Hemoglobin ABG Oxyhemoglobin Oxyhemoglobin Sodium Potassium Chloride Carbon Dioxide BUN Creatinine Glucose POC Glucose 127 H 115 H 143 H Lactic Acid Calcium Phosphorus Magnesium AST ALT Lactate Dehydrogenase CK-MB (CK-2) C-Reactive Protein NT-Pro-B Natriuret Pep Total Protein Albumin Urine WBC (Auto) 12/01/19 12/01/19 12/01/19 01:18 05:22 12:16 WBC RBC Hgb Hct MCHC RDW MCH Lymph % (Auto) Perry % (Auto) Perry # Eos # Lymph # (Auto) Perry # (Auto) Eos # (Auto) Seg Neutrophils % Seg Neuts % (Manual) Baso # (Auto) Lymphocytes % (Manual) Monocytes % (Manual) Eosinophils % (Manual) Basophils % (Manual) Seg Neutrophils # Seg Neutrophils # Man Lymphocytes # (Manual) Monocytes # (Manual) Eosinophils # (Manual) Nucleated RBC % Basophils # (Manual) APTT Heparin Anti-Xa Level ABG pH POC ABG pO2 ABG pO2 ABG HCO3 ABG O2 Saturation ABG Base Excess POC ABG pCO2 ABG Hemoglobin ABG Oxyhemoglobin Oxyhemoglobin Sodium Potassium 3.5 L Chloride 107.8 H Carbon Dioxide BUN 37 H Creatinine Glucose 157 H POC Glucose 118 H 148 H Lactic Acid Calcium 8.2 L D Phosphorus Magnesium AST 48 H ALT 60 H Lactate Dehydrogenase 194 H CK-MB (CK-2) C-Reactive Protein 8.50 H NT-Pro-B Natriuret Pep Total Protein 5.5 L Albumin 2.8 L Urine WBC (Auto) 12/01/19 12/02/19 12/02/19 18:04 00:05 05:16 WBC 11.4 H RBC Hgb Hct MCHC RDW 15.9 H MCH Lymph % (Auto) Perry % (Auto) 9.9 H Perry # 1.1 H Eos # Lymph # (Auto) Perry # (Auto) Eos # (Auto) Seg Neutrophils % 70.3 H Seg Neuts % (Manual) Baso # (Auto) Lymphocytes % (Manual) Monocytes % (Manual) Eosinophils % (Manual) Basophils % (Manual) Seg Neutrophils # 8.0 H Seg Neutrophils # Man Lymphocytes # (Manual) Monocytes # (Manual) Eosinophils # (Manual) Nucleated RBC % Basophils # (Manual) APTT Heparin Anti-Xa Level ABG pH POC ABG pO2 ABG pO2 ABG HCO3 ABG O2 Saturation ABG Base Excess POC ABG pCO2 ABG Hemoglobin ABG Oxyhemoglobin Oxyhemoglobin Sodium Potassium Chloride Carbon Dioxide BUN Creatinine Glucose POC Glucose 143 H 107 H Lactic Acid Calcium Phosphorus Magnesium AST ALT Lactate Dehydrogenase CK-MB (CK-2) C-Reactive Protein NT-Pro-B Natriuret Pep Total Protein Albumin Urine WBC (Auto) 12/02/19 12/02/19 12/02/19 05:16 06:03 11:52 WBC RBC Hgb Hct MCHC RDW MCH Lymph % (Auto) Perry % (Auto) Perry # Eos # Lymph # (Auto) Perry # (Auto) Eos # (Auto) Seg Neutrophils % Seg Neuts % (Manual) Baso # (Auto) Lymphocytes % (Manual) Monocytes % (Manual) Eosinophils % (Manual) Basophils % (Manual) Seg Neutrophils # Seg Neutrophils # Man Lymphocytes # (Manual) Monocytes # (Manual) Eosinophils # (Manual) Nucleated RBC % Basophils # (Manual) APTT Heparin Anti-Xa Level ABG pH POC ABG pO2 ABG pO2 ABG HCO3 ABG O2 Saturation ABG Base Excess POC ABG pCO2 ABG Hemoglobin ABG Oxyhemoglobin Oxyhemoglobin Sodium 146 H Potassium Chloride Carbon Dioxide BUN 28 H Creatinine Glucose 123 H POC Glucose 110 H 152 H Lactic Acid Calcium Phosphorus Magnesium AST ALT Lactate Dehydrogenase CK-MB (CK-2) C-Reactive Protein NT-Pro-B Natriuret Pep Total Protein Albumin Urine WBC (Auto) 12/02/19 12/02/19 12/02/19 12:58 17:58 23:36 WBC RBC Hgb Hct MCHC RDW MCH Lymph % (Auto) Perry % (Auto) Perry # Eos # Lymph # (Auto) Perry # (Auto) Eos # (Auto) Seg Neutrophils % Seg Neuts % (Manual) Baso # (Auto) Lymphocytes % (Manual) Monocytes % (Manual) Eosinophils % (Manual) Basophils % (Manual) Seg Neutrophils # Seg Neutrophils # Man Lymphocytes # (Manual) Monocytes # (Manual) Eosinophils # (Manual) Nucleated RBC % Basophils # (Manual) APTT Heparin Anti-Xa Level ABG pH POC ABG pO2 78.1 L ABG pO2 ABG HCO3 ABG O2 Saturation ABG Base Excess POC ABG pCO2 ABG Hemoglobin ABG Oxyhemoglobin Oxyhemoglobin Sodium Potassium Chloride Carbon Dioxide BUN Creatinine Glucose POC Glucose 120 H 123 H Lactic Acid Calcium Phosphorus Magnesium AST ALT Lactate Dehydrogenase CK-MB (CK-2) C-Reactive Protein NT-Pro-B Natriuret Pep Total Protein Albumin Urine WBC (Auto) 12/03/19 12/03/19 12/03/19 06:03 06:14 11:46 WBC RBC Hgb Hct MCHC RDW MCH Lymph % (Auto) Perry % (Auto) Perry # Eos # Lymph # (Auto) Perry # (Auto) Eos # (Auto) Seg Neutrophils % Seg Neuts % (Manual) Baso # (Auto) Lymphocytes % (Manual) Monocytes % (Manual) Eosinophils % (Manual) Basophils % (Manual) Seg Neutrophils # Seg Neutrophils # Man Lymphocytes # (Manual) Monocytes # (Manual) Eosinophils # (Manual) Nucleated RBC % Basophils # (Manual) APTT Heparin Anti-Xa Level ABG pH POC ABG pO2 ABG pO2 ABG HCO3 ABG O2 Saturation ABG Base Excess POC ABG pCO2 ABG Hemoglobin ABG Oxyhemoglobin Oxyhemoglobin Sodium Potassium Chloride Carbon Dioxide BUN Creatinine Glucose POC Glucose 142 H 130 H Lactic Acid Calcium Phosphorus Magnesium AST ALT Lactate Dehydrogenase CK-MB (CK-2) C-Reactive Protein NT-Pro-B Natriuret Pep Total Protein Albumin Urine WBC (Auto) 8.0 H 12/03/19 12/03/19 12/04/19 15:50 17:39 00:04 WBC RBC Hgb Hct MCHC RDW MCH Lymph % (Auto) Perry % (Auto) Perry # Eos # Lymph # (Auto) Perry # (Auto) Eos # (Auto) Seg Neutrophils % Seg Neuts % (Manual) Baso # (Auto) Lymphocytes % (Manual) Monocytes % (Manual) Eosinophils % (Manual) Basophils % (Manual) Seg Neutrophils # Seg Neutrophils # Man Lymphocytes # (Manual) Monocytes # (Manual) Eosinophils # (Manual) Nucleated RBC % Basophils # (Manual) APTT Heparin Anti-Xa Level ABG pH POC ABG pO2 ABG pO2 ABG HCO3 ABG O2 Saturation ABG Base Excess POC ABG pCO2 ABG Hemoglobin ABG Oxyhemoglobin Oxyhemoglobin Sodium Potassium Chloride Carbon Dioxide BUN Creatinine Glucose POC Glucose 146 H 133 H Lactic Acid Calcium Phosphorus 2.40 L Magnesium AST ALT Lactate Dehydrogenase CK-MB (CK-2) C-Reactive Protein NT-Pro-B Natriuret Pep Total Protein Albumin Urine WBC (Auto) 12/04/19 12/04/19 12/04/19 03:58 03:58 05:22 WBC 12.5 H RBC Hgb 11.2 L Hct 35.2 L MCHC RDW 16.0 H MCH Lymph % (Auto) Perry % (Auto) 9.6 H Perry # 1.2 H Eos # 0.5 H Lymph # (Auto) Perry # (Auto) Eos # (Auto) Seg Neutrophils % Seg Neuts % (Manual) Baso # (Auto) Lymphocytes % (Manual) Monocytes % (Manual) Eosinophils % (Manual) Basophils % (Manual) Seg Neutrophils # 8.6 H Seg Neutrophils # Man Lymphocytes # (Manual) Monocytes # (Manual) Eosinophils # (Manual) Nucleated RBC % Basophils # (Manual) APTT Heparin Anti-Xa Level ABG pH POC ABG pO2 ABG pO2 ABG HCO3 ABG O2 Saturation ABG Base Excess POC ABG pCO2 ABG Hemoglobin ABG Oxyhemoglobin Oxyhemoglobin Sodium 146 H Potassium Chloride 108.6 H Carbon Dioxide BUN 30 H Creatinine 0.7 L Glucose 121 H POC Glucose 132 H Lactic Acid Calcium Phosphorus Magnesium AST ALT Lactate Dehydrogenase CK-MB (CK-2) C-Reactive Protein NT-Pro-B Natriuret Pep Total Protein Albumin Urine WBC (Auto) 12/04/19 12/04/19 12/05/19 13:26 18:43 00:19 WBC RBC Hgb Hct MCHC RDW MCH Lymph % (Auto) Perry % (Auto) Perry # Eos # Lymph # (Auto) Perry # (Auto) Eos # (Auto) Seg Neutrophils % Seg Neuts % (Manual) Baso # (Auto) Lymphocytes % (Manual) Monocytes % (Manual) Eosinophils % (Manual) Basophils % (Manual) Seg Neutrophils # Seg Neutrophils # Man Lymphocytes # (Manual) Monocytes # (Manual) Eosinophils # (Manual) Nucleated RBC % Basophils # (Manual) APTT Heparin Anti-Xa Level ABG pH POC ABG pO2 ABG pO2 ABG HCO3 ABG O2 Saturation ABG Base Excess POC ABG pCO2 ABG Hemoglobin ABG Oxyhemoglobin Oxyhemoglobin Sodium Potassium Chloride Carbon Dioxide BUN Creatinine Glucose POC Glucose 185 H 156 H 150 H Lactic Acid Calcium Phosphorus Magnesium AST ALT Lactate Dehydrogenase CK-MB (CK-2) C-Reactive Protein NT-Pro-B Natriuret Pep Total Protein Albumin Urine WBC (Auto) 12/05/19 12/05/19 12/05/19 03:37 03:37 05:14 WBC 16.3 H RBC Hgb 11.4 L Hct MCHC RDW 15.6 H MCH Lymph % (Auto) 9.9 L Perry % (Auto) 9.7 H Perry # 1.6 H Eos # Lymph # (Auto) Perry # (Auto) Eos # (Auto) Seg Neutrophils % 78.0 H Seg Neuts % (Manual) Baso # (Auto) Lymphocytes % (Manual) Monocytes % (Manual) Eosinophils % (Manual) Basophils % (Manual) Seg Neutrophils # 12.7 H Seg Neutrophils # Man Lymphocytes # (Manual) Monocytes # (Manual) Eosinophils # (Manual) Nucleated RBC % Basophils # (Manual) APTT Heparin Anti-Xa Level ABG pH POC ABG pO2 ABG pO2 ABG HCO3 ABG O2 Saturation ABG Base Excess POC ABG pCO2 ABG Hemoglobin ABG Oxyhemoglobin Oxyhemoglobin Sodium 146 H Potassium Chloride 107.2 H Carbon Dioxide BUN 27 H Creatinine 0.7 L Glucose 171 H POC Glucose 168 H Lactic Acid Calcium Phosphorus Magnesium AST ALT Lactate Dehydrogenase CK-MB (CK-2) C-Reactive Protein NT-Pro-B Natriuret Pep Total Protein Albumin Urine WBC (Auto) 12/05/19 12/05/19 12/05/19 12:31 18:10 23:58 WBC RBC Hgb Hct MCHC RDW MCH Lymph % (Auto) Perry % (Auto) Perry # Eos # Lymph # (Auto) Perry # (Auto) Eos # (Auto) Seg Neutrophils % Seg Neuts % (Manual) Baso # (Auto) Lymphocytes % (Manual) Monocytes % (Manual) Eosinophils % (Manual) Basophils % (Manual) Seg Neutrophils # Seg Neutrophils # Man Lymphocytes # (Manual) Monocytes # (Manual) Eosinophils # (Manual) Nucleated RBC % Basophils # (Manual) APTT Heparin Anti-Xa Level ABG pH POC ABG pO2 ABG pO2 ABG HCO3 ABG O2 Saturation ABG Base Excess POC ABG pCO2 ABG Hemoglobin ABG Oxyhemoglobin Oxyhemoglobin Sodium Potassium Chloride Carbon Dioxide BUN Creatinine Glucose POC Glucose 159 H 198 H 115 H Lactic Acid Calcium Phosphorus Magnesium AST ALT Lactate Dehydrogenase CK-MB (CK-2) C-Reactive Protein NT-Pro-B Natriuret Pep Total Protein Albumin Urine WBC (Auto) 12/06/19 12/06/19 12/06/19 05:24 05:24 05:25 WBC 14.9 H RBC Hgb 10.8 L Hct 34.0 L MCHC RDW 15.6 H MCH Lymph % (Auto) 10.7 L Perry % (Auto) 8.3 H Perry # 1.2 H Eos # Lymph # (Auto) Perry # (Auto) Eos # (Auto) Seg Neutrophils % 78.7 H Seg Neuts % (Manual) Baso # (Auto) Lymphocytes % (Manual) Monocytes % (Manual) Eosinophils % (Manual) Basophils % (Manual) Seg Neutrophils # 11.7 H Seg Neutrophils # Man Lymphocytes # (Manual) Monocytes # (Manual) Eosinophils # (Manual) Nucleated RBC % Basophils # (Manual) APTT Heparin Anti-Xa Level ABG pH POC ABG pO2 ABG pO2 ABG HCO3 ABG O2 Saturation ABG Base Excess POC ABG pCO2 ABG Hemoglobin ABG Oxyhemoglobin Oxyhemoglobin Sodium 148 H Potassium 5.1 H Chloride 107.6 H Carbon Dioxide BUN 27 H Creatinine 0.7 L Glucose 155 H POC Glucose 157 H Lactic Acid Calcium Phosphorus Magnesium AST ALT Lactate Dehydrogenase CK-MB (CK-2) C-Reactive Protein NT-Pro-B Natriuret Pep Total Protein Albumin Urine WBC (Auto) 12/07/19 12/07/19 12/07/19 00:13 05:34 11:33 WBC RBC Hgb Hct MCHC RDW MCH Lymph % (Auto) Perry % (Auto) Perry # Eos # Lymph # (Auto) Perry # (Auto) Eos # (Auto) Seg Neutrophils % Seg Neuts % (Manual) Baso # (Auto) Lymphocytes % (Manual) Monocytes % (Manual) Eosinophils % (Manual) Basophils % (Manual) Seg Neutrophils # Seg Neutrophils # Man Lymphocytes # (Manual) Monocytes # (Manual) Eosinophils # (Manual) Nucleated RBC % Basophils # (Manual) APTT Heparin Anti-Xa Level ABG pH POC ABG pO2 ABG pO2 ABG HCO3 ABG O2 Saturation ABG Base Excess POC ABG pCO2 ABG Hemoglobin ABG Oxyhemoglobin Oxyhemoglobin Sodium Potassium Chloride Carbon Dioxide BUN Creatinine Glucose POC Glucose 142 H 111 H 169 H Lactic Acid Calcium Phosphorus Magnesium AST ALT Lactate Dehydrogenase CK-MB (CK-2) C-Reactive Protein NT-Pro-B Natriuret Pep Total Protein Albumin Urine WBC (Auto) 12/07/19 12/07/19 12/07/19 12:41 13:25 18:19 WBC 12.4 H RBC 3.53 L Hgb 10.2 L Hct 32.1 L MCHC RDW 15.3 H MCH Lymph % (Auto) 10.6 L Perry % (Auto) 7.8 H Perry # 1.0 H Eos # Lymph # (Auto) Perry # (Auto) Eos # (Auto) Seg Neutrophils % 77.6 H Seg Neuts % (Manual) Baso # (Auto) Lymphocytes % (Manual) Monocytes % (Manual) Eosinophils % (Manual) Basophils % (Manual) Seg Neutrophils # 9.6 H Seg Neutrophils # Man Lymphocytes # (Manual) Monocytes # (Manual) Eosinophils # (Manual) Nucleated RBC % Basophils # (Manual) APTT Heparin Anti-Xa Level ABG pH POC ABG pO2 ABG pO2 ABG HCO3 ABG O2 Saturation ABG Base Excess POC ABG pCO2 ABG Hemoglobin ABG Oxyhemoglobin Oxyhemoglobin Sodium 149 H Potassium Chloride 108.4 H Carbon Dioxide BUN 26 H Creatinine 0.6 L Glucose 149 H POC Glucose 164 H Lactic Acid Calcium Phosphorus Magnesium 2.60 H AST 121 H ALT 145 H Lactate Dehydrogenase CK-MB (CK-2) C-Reactive Protein NT-Pro-B Natriuret Pep Total Protein Albumin 2.6 L Urine WBC (Auto) 12/07/19 12/08/19 12/08/19 22:25 00:02 03:55 WBC 13.3 H RBC 3.40 L Hgb 9.7 L Hct 30.8 L MCHC 31 L RDW 15.5 H MCH Lymph % (Auto) Perry % (Auto) 8.1 H Perry # 1.1 H Eos # Lymph # (Auto) Perry # (Auto) Eos # (Auto) Seg Neutrophils % 73.0 H Seg Neuts % (Manual) Baso # (Auto) Lymphocytes % (Manual) Monocytes % (Manual) Eosinophils % (Manual) Basophils % (Manual) Seg Neutrophils # 9.7 H Seg Neutrophils # Man Lymphocytes # (Manual) Monocytes # (Manual) Eosinophils # (Manual) Nucleated RBC % Basophils # (Manual) APTT Heparin Anti-Xa Level 0.12 L ABG pH POC ABG pO2 ABG pO2 ABG HCO3 ABG O2 Saturation ABG Base Excess POC ABG pCO2 ABG Hemoglobin ABG Oxyhemoglobin Oxyhemoglobin Sodium Potassium Chloride Carbon Dioxide BUN Creatinine Glucose POC Glucose 151 H Lactic Acid Calcium Phosphorus Magnesium AST ALT Lactate Dehydrogenase CK-MB (CK-2) C-Reactive Protein NT-Pro-B Natriuret Pep Total Protein Albumin Urine WBC (Auto) 12/08/19 12/08/19 12/08/19 03:55 05:21 06:01 WBC RBC Hgb Hct MCHC RDW MCH Lymph % (Auto) Perry % (Auto) Perry # Eos # Lymph # (Auto) Perry # (Auto) Eos # (Auto) Seg Neutrophils % Seg Neuts % (Manual) Baso # (Auto) Lymphocytes % (Manual) Monocytes % (Manual) Eosinophils % (Manual) Basophils % (Manual) Seg Neutrophils # Seg Neutrophils # Man Lymphocytes # (Manual) Monocytes # (Manual) Eosinophils # (Manual) Nucleated RBC % Basophils # (Manual) APTT Heparin Anti-Xa Level 0.20 L ABG pH POC ABG pO2 ABG pO2 ABG HCO3 ABG O2 Saturation ABG Base Excess POC ABG pCO2 ABG Hemoglobin ABG Oxyhemoglobin Oxyhemoglobin Sodium 149 H Potassium Chloride 108.0 H Carbon Dioxide BUN 28 H Creatinine 0.6 L Glucose 144 H POC Glucose 143 H Lactic Acid Calcium Phosphorus Magnesium AST 98 H ALT 145 H Lactate Dehydrogenase CK-MB (CK-2) C-Reactive Protein NT-Pro-B Natriuret Pep Total Protein 6.0 L Albumin 2.4 L Urine WBC (Auto) 12/08/19 12/08/19 12/08/19 12:08 18:11 23:53 WBC RBC Hgb Hct MCHC RDW MCH Lymph % (Auto) Perry % (Auto) Perry # Eos # Lymph # (Auto) Perry # (Auto) Eos # (Auto) Seg Neutrophils % Seg Neuts % (Manual) Baso # (Auto) Lymphocytes % (Manual) Monocytes % (Manual) Eosinophils % (Manual) Basophils % (Manual) Seg Neutrophils # Seg Neutrophils # Man Lymphocytes # (Manual) Monocytes # (Manual) Eosinophils # (Manual) Nucleated RBC % Basophils # (Manual) APTT Heparin Anti-Xa Level ABG pH POC ABG pO2 ABG pO2 ABG HCO3 ABG O2 Saturation ABG Base Excess POC ABG pCO2 ABG Hemoglobin ABG Oxyhemoglobin Oxyhemoglobin Sodium Potassium Chloride Carbon Dioxide BUN Creatinine Glucose POC Glucose 172 H 122 H 162 H Lactic Acid Calcium Phosphorus Magnesium AST ALT Lactate Dehydrogenase CK-MB (CK-2) C-Reactive Protein NT-Pro-B Natriuret Pep Total Protein Albumin Urine WBC (Auto) 12/09/19 12/09/19 12/09/19 04:03 04:03 05:53 WBC RBC Hgb 9.1 L Hct 28.9 L MCHC RDW MCH Lymph % (Auto) Perry % (Auto) Perry # Eos # Lymph # (Auto) Perry # (Auto) Eos # (Auto) Seg Neutrophils % Seg Neuts % (Manual) Baso # (Auto) Lymphocytes % (Manual) Monocytes % (Manual) Eosinophils % (Manual) Basophils % (Manual) Seg Neutrophils # Seg Neutrophils # Man Lymphocytes # (Manual) Monocytes # (Manual) Eosinophils # (Manual) Nucleated RBC % Basophils # (Manual) APTT Heparin Anti-Xa Level 0.15 L ABG pH POC ABG pO2 ABG pO2 ABG HCO3 ABG O2 Saturation ABG Base Excess POC ABG pCO2 ABG Hemoglobin ABG Oxyhemoglobin Oxyhemoglobin Sodium Potassium Chloride Carbon Dioxide BUN Creatinine Glucose POC Glucose 124 H Lactic Acid Calcium Phosphorus Magnesium AST ALT Lactate Dehydrogenase CK-MB (CK-2) C-Reactive Protein NT-Pro-B Natriuret Pep Total Protein Albumin Urine WBC (Auto) 12/09/19 12/09/19 12/10/19 09:43 12:41 00:13 WBC RBC Hgb Hct MCHC RDW MCH Lymph % (Auto) Perry % (Auto) Perry # Eos # Lymph # (Auto) Perry # (Auto) Eos # (Auto) Seg Neutrophils % Seg Neuts % (Manual) Baso # (Auto) Lymphocytes % (Manual) Monocytes % (Manual) Eosinophils % (Manual) Basophils % (Manual) Seg Neutrophils # Seg Neutrophils # Man Lymphocytes # (Manual) Monocytes # (Manual) Eosinophils # (Manual) Nucleated RBC % Basophils # (Manual) APTT Heparin Anti-Xa Level ABG pH POC ABG pO2 ABG pO2 ABG HCO3 ABG O2 Saturation ABG Base Excess POC ABG pCO2 ABG Hemoglobin ABG Oxyhemoglobin Oxyhemoglobin Sodium Potassium Chloride Carbon Dioxide BUN 25 H Creatinine 0.6 L Glucose 131 H POC Glucose 109 H 120 H Lactic Acid Calcium Phosphorus Magnesium AST ALT Lactate Dehydrogenase CK-MB (CK-2) C-Reactive Protein NT-Pro-B Natriuret Pep Total Protein Albumin Urine WBC (Auto) 12/10/19 12/10/19 12/10/19 04:14 04:14 12:00 WBC 13.3 H RBC 3.34 L Hgb 9.6 L Hct 30.4 L MCHC RDW 15.4 H MCH Lymph % (Auto) Perry % (Auto) Perry # Eos # Lymph # (Auto) Perry # (Auto) Eos # (Auto) Seg Neutrophils % Seg Neuts % (Manual) 75.0 H Baso # (Auto) Lymphocytes % (Manual) 13.0 L Monocytes % (Manual) 8.0 H Eosinophils % (Manual) Basophils % (Manual) 2.0 H Seg Neutrophils # Seg Neutrophils # Man 10.0 H Lymphocytes # (Manual) Monocytes # (Manual) 1.1 H Eosinophils # (Manual) Nucleated RBC % Basophils # (Manual) 0.3 H APTT Heparin Anti-Xa Level ABG pH POC ABG pO2 ABG pO2 ABG HCO3 ABG O2 Saturation ABG Base Excess POC ABG pCO2 ABG Hemoglobin ABG Oxyhemoglobin Oxyhemoglobin Sodium 147 H Potassium Chloride 108.3 H Carbon Dioxide BUN 21 H Creatinine 0.6 L Glucose 104 H POC Glucose 133 H Lactic Acid Calcium Phosphorus Magnesium AST ALT Lactate Dehydrogenase CK-MB (CK-2) C-Reactive Protein NT-Pro-B Natriuret Pep Total Protein Albumin Urine WBC (Auto) 12/10/19 12/10/19 12/11/19 18:44 21:20 00:08 WBC 14.9 H RBC 3.36 L Hgb 9.6 L Hct 30.5 L MCHC RDW 15.4 H MCH Lymph % (Auto) Perry % (Auto) Perry # Eos # Lymph # (Auto) Perry # (Auto) Eos # (Auto) Seg Neutrophils % Seg Neuts % (Manual) Baso # (Auto) Lymphocytes % (Manual) Monocytes % (Manual) Eosinophils % (Manual) Basophils % (Manual) Seg Neutrophils # Seg Neutrophils # Man Lymphocytes # (Manual) Monocytes # (Manual) Eosinophils # (Manual) Nucleated RBC % Basophils # (Manual) APTT Heparin Anti-Xa Level ABG pH POC ABG pO2 ABG pO2 ABG HCO3 ABG O2 Saturation ABG Base Excess POC ABG pCO2 ABG Hemoglobin ABG Oxyhemoglobin Oxyhemoglobin Sodium Potassium Chloride Carbon Dioxide BUN Creatinine Glucose POC Glucose 119 H 134 H Lactic Acid Calcium Phosphorus Magnesium AST ALT Lactate Dehydrogenase CK-MB (CK-2) C-Reactive Protein NT-Pro-B Natriuret Pep Total Protein Albumin Urine WBC (Auto) 12/11/19 12/11/19 12/11/19 03:54 07:28 08:36 WBC 11.9 H RBC 3.25 L Hgb 9.6 L Hct 29.2 L MCHC RDW 15.7 H MCH Lymph % (Auto) Perry % (Auto) Perry # Eos # Lymph # (Auto) Perry # (Auto) Eos # (Auto) Seg Neutrophils % Seg Neuts % (Manual) Baso # (Auto) Lymphocytes % (Manual) Monocytes % (Manual) Eosinophils % (Manual) Basophils % (Manual) Seg Neutrophils # Seg Neutrophils # Man Lymphocytes # (Manual) Monocytes # (Manual) Eosinophils # (Manual) Nucleated RBC % Basophils # (Manual) APTT Heparin Anti-Xa Level 0.10 L 0.16 L ABG pH POC ABG pO2 ABG pO2 ABG HCO3 ABG O2 Saturation ABG Base Excess POC ABG pCO2 ABG Hemoglobin ABG Oxyhemoglobin Oxyhemoglobin Sodium Potassium Chloride Carbon Dioxide BUN Creatinine Glucose POC Glucose Lactic Acid Calcium Phosphorus Magnesium AST ALT Lactate Dehydrogenase CK-MB (CK-2) C-Reactive Protein NT-Pro-B Natriuret Pep Total Protein Albumin Urine WBC (Auto) 12/11/19 12/11/19 12/11/19 08:36 11:45 17:15 WBC RBC Hgb Hct MCHC RDW MCH Lymph % (Auto) Perry % (Auto) Perry # Eos # Lymph # (Auto) Perry # (Auto) Eos # (Auto) Seg Neutrophils % Seg Neuts % (Manual) Baso # (Auto) Lymphocytes % (Manual) Monocytes % (Manual) Eosinophils % (Manual) Basophils % (Manual) Seg Neutrophils # Seg Neutrophils # Man Lymphocytes # (Manual) Monocytes # (Manual) Eosinophils # (Manual) Nucleated RBC % Basophils # (Manual) APTT Heparin Anti-Xa Level ABG pH POC ABG pO2 ABG pO2 ABG HCO3 ABG O2 Saturation ABG Base Excess POC ABG pCO2 ABG Hemoglobin ABG Oxyhemoglobin Oxyhemoglobin Sodium Potassium Chloride Carbon Dioxide BUN Creatinine 0.5 L Glucose 128 H POC Glucose 136 H 109 H Lactic Acid Calcium Phosphorus Magnesium AST ALT Lactate Dehydrogenase CK-MB (CK-2) C-Reactive Protein NT-Pro-B Natriuret Pep Total Protein Albumin Urine WBC (Auto) 12/12/19 12/12/19 12/12/19 00:03 05:53 05:53 WBC RBC Hgb 8.8 L Hct 27.6 L MCHC RDW MCH Lymph % (Auto) Perry % (Auto) Perry # Eos # Lymph # (Auto) Perry # (Auto) Eos # (Auto) Seg Neutrophils % Seg Neuts % (Manual) Baso # (Auto) Lymphocytes % (Manual) Monocytes % (Manual) Eosinophils % (Manual) Basophils % (Manual) Seg Neutrophils # Seg Neutrophils # Man Lymphocytes # (Manual) Monocytes # (Manual) Eosinophils # (Manual) Nucleated RBC % Basophils # (Manual) APTT Heparin Anti-Xa Level 0.22 L ABG pH POC ABG pO2 ABG pO2 ABG HCO3 ABG O2 Saturation ABG Base Excess POC ABG pCO2 ABG Hemoglobin ABG Oxyhemoglobin Oxyhemoglobin Sodium Potassium Chloride Carbon Dioxide BUN Creatinine Glucose POC Glucose 116 H Lactic Acid Calcium Phosphorus Magnesium AST ALT Lactate Dehydrogenase CK-MB (CK-2) C-Reactive Protein NT-Pro-B Natriuret Pep Total Protein Albumin Urine WBC (Auto) 12/12/19 12/12/19 12/12/19 09:38 12:18 17:44 WBC RBC Hgb Hct MCHC RDW MCH Lymph % (Auto) Perry % (Auto) Perry # Eos # Lymph # (Auto) Perry # (Auto) Eos # (Auto) Seg Neutrophils % Seg Neuts % (Manual) Baso # (Auto) Lymphocytes % (Manual) Monocytes % (Manual) Eosinophils % (Manual) Basophils % (Manual) Seg Neutrophils # Seg Neutrophils # Man Lymphocytes # (Manual) Monocytes # (Manual) Eosinophils # (Manual) Nucleated RBC % Basophils # (Manual) APTT Heparin Anti-Xa Level ABG pH POC ABG pO2 ABG pO2 ABG HCO3 ABG O2 Saturation ABG Base Excess POC ABG pCO2 ABG Hemoglobin ABG Oxyhemoglobin Oxyhemoglobin Sodium Potassium Chloride Carbon Dioxide BUN Creatinine Glucose POC Glucose 115 H 146 H 146 H Lactic Acid Calcium Phosphorus Magnesium AST ALT Lactate Dehydrogenase CK-MB (CK-2) C-Reactive Protein NT-Pro-B Natriuret Pep Total Protein Albumin Urine WBC (Auto) 12/12/19 12/13/19 12/13/19 23:33 05:32 05:32 WBC 13.1 H RBC 3.27 L Hgb 9.5 L Hct 29.3 L MCHC RDW 15.6 H MCH Lymph % (Auto) Perry % (Auto) Perry # Eos # Lymph # (Auto) Perry # (Auto) Eos # (Auto) Seg Neutrophils % Seg Neuts % (Manual) 74.0 H Baso # (Auto) Lymphocytes % (Manual) 8.0 L Monocytes % (Manual) 9.0 H Eosinophils % (Manual) 5.0 H Basophils % (Manual) Seg Neutrophils # Seg Neutrophils # Man 9.7 H Lymphocytes # (Manual) 1.0 L Monocytes # (Manual) 1.2 H Eosinophils # (Manual) 0.7 H Nucleated RBC % Basophils # (Manual) APTT Heparin Anti-Xa Level 0.20 L ABG pH POC ABG pO2 ABG pO2 ABG HCO3 ABG O2 Saturation ABG Base Excess POC ABG pCO2 ABG Hemoglobin ABG Oxyhemoglobin Oxyhemoglobin Sodium Potassium Chloride Carbon Dioxide BUN Creatinine Glucose POC Glucose 126 H Lactic Acid Calcium Phosphorus Magnesium AST ALT Lactate Dehydrogenase CK-MB (CK-2) C-Reactive Protein NT-Pro-B Natriuret Pep Total Protein Albumin Urine WBC (Auto) 12/13/19 12/13/19 12/13/19 05:32 05:46 11:57 WBC RBC Hgb Hct MCHC RDW MCH Lymph % (Auto) Perry % (Auto) Perry # Eos # Lymph # (Auto) Perry # (Auto) Eos # (Auto) Seg Neutrophils % Seg Neuts % (Manual) Baso # (Auto) Lymphocytes % (Manual) Monocytes % (Manual) Eosinophils % (Manual) Basophils % (Manual) Seg Neutrophils # Seg Neutrophils # Man Lymphocytes # (Manual) Monocytes # (Manual) Eosinophils # (Manual) Nucleated RBC % Basophils # (Manual) APTT Heparin Anti-Xa Level ABG pH POC ABG pO2 ABG pO2 ABG HCO3 ABG O2 Saturation ABG Base Excess POC ABG pCO2 ABG Hemoglobin ABG Oxyhemoglobin Oxyhemoglobin Sodium Potassium Chloride Carbon Dioxide 31 H BUN Creatinine 0.6 L Glucose 114 H POC Glucose 118 H 133 H Lactic Acid Calcium Phosphorus Magnesium AST ALT Lactate Dehydrogenase CK-MB (CK-2) C-Reactive Protein NT-Pro-B Natriuret Pep Total Protein Albumin Urine WBC (Auto) 12/13/19 12/13/19 12/14/19 17:44 23:46 05:32 WBC RBC Hgb Hct MCHC RDW MCH Lymph % (Auto) Perry % (Auto) Perry # Eos # Lymph # (Auto) Perry # (Auto) Eos # (Auto) Seg Neutrophils % Seg Neuts % (Manual) Baso # (Auto) Lymphocytes % (Manual) Monocytes % (Manual) Eosinophils % (Manual) Basophils % (Manual) Seg Neutrophils # Seg Neutrophils # Man Lymphocytes # (Manual) Monocytes # (Manual) Eosinophils # (Manual) Nucleated RBC % Basophils # (Manual) APTT Heparin Anti-Xa Level ABG pH POC ABG pO2 ABG pO2 ABG HCO3 ABG O2 Saturation ABG Base Excess POC ABG pCO2 ABG Hemoglobin ABG Oxyhemoglobin Oxyhemoglobin Sodium Potassium Chloride Carbon Dioxide BUN Creatinine Glucose POC Glucose 161 H 126 H 139 H Lactic Acid Calcium Phosphorus Magnesium AST ALT Lactate Dehydrogenase CK-MB (CK-2) C-Reactive Protein NT-Pro-B Natriuret Pep Total Protein Albumin Urine WBC (Auto) 12/14/19 12/14/19 12/14/19 06:03 06:03 09:37 WBC RBC Hgb 9.6 L Hct 30.4 L MCHC RDW MCH Lymph % (Auto) Perry % (Auto) Perry # Eos # Lymph # (Auto) Perry # (Auto) Eos # (Auto) Seg Neutrophils % Seg Neuts % (Manual) Baso # (Auto) Lymphocytes % (Manual) Monocytes % (Manual) Eosinophils % (Manual) Basophils % (Manual) Seg Neutrophils # Seg Neutrophils # Man Lymphocytes # (Manual) Monocytes # (Manual) Eosinophils # (Manual) Nucleated RBC % Basophils # (Manual) APTT Heparin Anti-Xa Level 0.24 L ABG pH POC ABG pO2 ABG pO2 ABG HCO3 ABG O2 Saturation ABG Base Excess POC ABG pCO2 ABG Hemoglobin ABG Oxyhemoglobin Oxyhemoglobin Sodium Potassium Chloride Carbon Dioxide BUN Creatinine 0.6 L Glucose 162 H POC Glucose Lactic Acid Calcium Phosphorus Magnesium AST 71 H ALT 118 H Lactate Dehydrogenase CK-MB (CK-2) C-Reactive Protein NT-Pro-B Natriuret Pep Total Protein 6.2 L Albumin 2.3 L Urine WBC (Auto) 12/14/19 12/14/19 12/15/19 12:06 18:18 00:19 WBC RBC Hgb Hct MCHC RDW MCH Lymph % (Auto) Perry % (Auto) Perry # Eos # Lymph # (Auto) Perry # (Auto) Eos # (Auto) Seg Neutrophils % Seg Neuts % (Manual) Baso # (Auto) Lymphocytes % (Manual) Monocytes % (Manual) Eosinophils % (Manual) Basophils % (Manual) Seg Neutrophils # Seg Neutrophils # Man Lymphocytes # (Manual) Monocytes # (Manual) Eosinophils # (Manual) Nucleated RBC % Basophils # (Manual) APTT Heparin Anti-Xa Level ABG pH POC ABG pO2 ABG pO2 ABG HCO3 ABG O2 Saturation ABG Base Excess POC ABG pCO2 ABG Hemoglobin ABG Oxyhemoglobin Oxyhemoglobin Sodium Potassium Chloride Carbon Dioxide BUN Creatinine Glucose POC Glucose 147 H 166 H 123 H Lactic Acid Calcium Phosphorus Magnesium AST ALT Lactate Dehydrogenase CK-MB (CK-2) C-Reactive Protein NT-Pro-B Natriuret Pep Total Protein Albumin Urine WBC (Auto) 12/15/19 12/15/19 12/15/19 05:28 05:29 05:29 WBC 14.9 H RBC 3.19 L Hgb 9.1 L Hct 28.7 L MCHC RDW 16.0 H MCH Lymph % (Auto) Perry % (Auto) Perry # Eos # Lymph # (Auto) Perry # (Auto) Eos # (Auto) Seg Neutrophils % Seg Neuts % (Manual) Baso # (Auto) Lymphocytes % (Manual) Monocytes % (Manual) Eosinophils % (Manual) Basophils % (Manual) Seg Neutrophils # Seg Neutrophils # Man Lymphocytes # (Manual) Monocytes # (Manual) Eosinophils # (Manual) Nucleated RBC % Basophils # (Manual) APTT Heparin Anti-Xa Level 0.19 L ABG pH POC ABG pO2 ABG pO2 ABG HCO3 ABG O2 Saturation ABG Base Excess POC ABG pCO2 ABG Hemoglobin ABG Oxyhemoglobin Oxyhemoglobin Sodium Potassium Chloride Carbon Dioxide BUN Creatinine 0.6 L Glucose 110 H POC Glucose Lactic Acid Calcium Phosphorus Magnesium AST ALT Lactate Dehydrogenase CK-MB (CK-2) C-Reactive Protein NT-Pro-B Natriuret Pep Total Protein Albumin Urine WBC (Auto) 12/15/19 12/15/19 12/15/19 05:53 11:50 17:26 WBC RBC Hgb Hct MCHC RDW MCH Lymph % (Auto) Perry % (Auto) Perry # Eos # Lymph # (Auto) Perry # (Auto) Eos # (Auto) Seg Neutrophils % Seg Neuts % (Manual) Baso # (Auto) Lymphocytes % (Manual) Monocytes % (Manual) Eosinophils % (Manual) Basophils % (Manual) Seg Neutrophils # Seg Neutrophils # Man Lymphocytes # (Manual) Monocytes # (Manual) Eosinophils # (Manual) Nucleated RBC % Basophils # (Manual) APTT Heparin Anti-Xa Level ABG pH POC ABG pO2 ABG pO2 ABG HCO3 ABG O2 Saturation ABG Base Excess POC ABG pCO2 ABG Hemoglobin ABG Oxyhemoglobin Oxyhemoglobin Sodium Potassium Chloride Carbon Dioxide BUN Creatinine Glucose POC Glucose 119 H 132 H 128 H Lactic Acid Calcium Phosphorus Magnesium AST ALT Lactate Dehydrogenase CK-MB (CK-2) C-Reactive Protein NT-Pro-B Natriuret Pep Total Protein Albumin Urine WBC (Auto) 09/12/16/19 12/16/19 23:11 05:30 05:46 WBC RBC Hgb 8.8 L Hct 27.9 L MCHC RDW MCH Lymph % (Auto) Perry % (Auto) Perry # Eos # Lymph # (Auto) Perry # (Auto) Eos # (Auto) Seg Neutrophils % Seg Neuts % (Manual) Baso # (Auto) Lymphocytes % (Manual) Monocytes % (Manual) Eosinophils % (Manual) Basophils % (Manual) Seg Neutrophils # Seg Neutrophils # Man Lymphocytes # (Manual) Monocytes # (Manual) Eosinophils # (Manual) Nucleated RBC % Basophils # (Manual) APTT Heparin Anti-Xa Level ABG pH POC ABG pO2 ABG pO2 ABG HCO3 ABG O2 Saturation ABG Base Excess POC ABG pCO2 ABG Hemoglobin ABG Oxyhemoglobin Oxyhemoglobin Sodium Potassium Chloride Carbon Dioxide BUN Creatinine Glucose POC Glucose 150 H 134 H Lactic Acid Calcium Phosphorus Magnesium AST ALT Lactate Dehydrogenase CK-MB (CK-2) C-Reactive Protein NT-Pro-B Natriuret Pep Total Protein Albumin Urine WBC (Auto) 12/16/19 12/16/19 12/16/19 05:46 05:46 11:44 WBC RBC Hgb Hct MCHC RDW MCH Lymph % (Auto) Perry % (Auto) Perry # Eos # Lymph # (Auto) Perry # (Auto) Eos # (Auto) Seg Neutrophils % Seg Neuts % (Manual) Baso # (Auto) Lymphocytes % (Manual) Monocytes % (Manual) Eosinophils % (Manual) Basophils % (Manual) Seg Neutrophils # Seg Neutrophils # Man Lymphocytes # (Manual) Monocytes # (Manual) Eosinophils # (Manual) Nucleated RBC % Basophils # (Manual) APTT Heparin Anti-Xa Level 0.20 L ABG pH POC ABG pO2 ABG pO2 ABG HCO3 ABG O2 Saturation ABG Base Excess POC ABG pCO2 ABG Hemoglobin ABG Oxyhemoglobin Oxyhemoglobin Sodium Potassium Chloride Carbon Dioxide 31 H BUN Creatinine 0.5 L Glucose 147 H POC Glucose 164 H Lactic Acid Calcium Phosphorus Magnesium AST ALT Lactate Dehydrogenase CK-MB (CK-2) C-Reactive Protein NT-Pro-B Natriuret Pep Total Protein Albumin Urine WBC (Auto) 12/16/19 12/16/19 12/17/19 17:17 23:49 05:30 WBC 13.9 H RBC 3.27 L Hgb 9.4 L Hct 29.2 L MCHC RDW 16.0 H MCH Lymph % (Auto) Perry % (Auto) 8.8 H Perry # Eos # Lymph # (Auto) Perry # (Auto) 1.2 H Eos # (Auto) 0.5 H Seg Neutrophils % 70.5 H Seg Neuts % (Manual) Baso # (Auto) 0.2 H Lymphocytes % (Manual) Monocytes % (Manual) Eosinophils % (Manual) Basophils % (Manual) Seg Neutrophils # 9.8 H Seg Neutrophils # Man Lymphocytes # (Manual) Monocytes # (Manual) Eosinophils # (Manual) Nucleated RBC % Basophils # (Manual) APTT Heparin Anti-Xa Level ABG pH POC ABG pO2 ABG pO2 ABG HCO3 ABG O2 Saturation ABG Base Excess POC ABG pCO2 ABG Hemoglobin ABG Oxyhemoglobin Oxyhemoglobin Sodium Potassium Chloride Carbon Dioxide BUN Creatinine Glucose POC Glucose 162 H 144 H Lactic Acid Calcium Phosphorus Magnesium AST ALT Lactate Dehydrogenase CK-MB (CK-2) C-Reactive Protein NT-Pro-B Natriuret Pep Total Protein Albumin Urine WBC (Auto) 12/17/19 12/17/19 12/17/19 05:30 06:06 11:50 WBC RBC Hgb Hct MCHC RDW MCH Lymph % (Auto) Perry % (Auto) Perry # Eos # Lymph # (Auto) Perry # (Auto) Eos # (Auto) Seg Neutrophils % Seg Neuts % (Manual) Baso # (Auto) Lymphocytes % (Manual) Monocytes % (Manual) Eosinophils % (Manual) Basophils % (Manual) Seg Neutrophils # Seg Neutrophils # Man Lymphocytes # (Manual) Monocytes # (Manual) Eosinophils # (Manual) Nucleated RBC % Basophils # (Manual) APTT Heparin Anti-Xa Level ABG pH POC ABG pO2 ABG pO2 ABG HCO3 ABG O2 Saturation ABG Base Excess POC ABG pCO2 ABG Hemoglobin ABG Oxyhemoglobin Oxyhemoglobin Sodium Potassium Chloride 97.4 L Carbon Dioxide 32 H BUN Creatinine 0.5 L Glucose 135 H POC Glucose 151 H 140 H Lactic Acid Calcium Phosphorus Magnesium AST ALT Lactate Dehydrogenase CK-MB (CK-2) C-Reactive Protein NT-Pro-B Natriuret Pep Total Protein Albumin Urine WBC (Auto) 12/17/19 12/17/19 12/18/19 17:50 23:46 05:17 WBC RBC Hgb 8.8 L Hct 28.0 L MCHC RDW MCH Lymph % (Auto) Perry % (Auto) Perry # Eos # Lymph # (Auto) Perry # (Auto) Eos # (Auto) Seg Neutrophils % Seg Neuts % (Manual) Baso # (Auto) Lymphocytes % (Manual) Monocytes % (Manual) Eosinophils % (Manual) Basophils % (Manual) Seg Neutrophils # Seg Neutrophils # Man Lymphocytes # (Manual) Monocytes # (Manual) Eosinophils # (Manual) Nucleated RBC % Basophils # (Manual) APTT Heparin Anti-Xa Level ABG pH POC ABG pO2 ABG pO2 ABG HCO3 ABG O2 Saturation ABG Base Excess POC ABG pCO2 ABG Hemoglobin ABG Oxyhemoglobin Oxyhemoglobin Sodium Potassium Chloride Carbon Dioxide BUN Creatinine Glucose POC Glucose 158 H 150 H Lactic Acid Calcium Phosphorus Magnesium AST ALT Lactate Dehydrogenase CK-MB (CK-2) C-Reactive Protein NT-Pro-B Natriuret Pep Total Protein Albumin Urine WBC (Auto) 12/18/19 12/18/19 12/18/19 05:17 05:49 11:12 WBC RBC Hgb Hct MCHC RDW MCH Lymph % (Auto) Perry % (Auto) Perry # Eos # Lymph # (Auto) Perry # (Auto) Eos # (Auto) Seg Neutrophils % Seg Neuts % (Manual) Baso # (Auto) Lymphocytes % (Manual) Monocytes % (Manual) Eosinophils % (Manual) Basophils % (Manual) Seg Neutrophils # Seg Neutrophils # Man Lymphocytes # (Manual) Monocytes # (Manual) Eosinophils # (Manual) Nucleated RBC % Basophils # (Manual) APTT Heparin Anti-Xa Level 0.16 L ABG pH POC ABG pO2 ABG pO2 ABG HCO3 ABG O2 Saturation ABG Base Excess POC ABG pCO2 ABG Hemoglobin ABG Oxyhemoglobin Oxyhemoglobin Sodium Potassium Chloride Carbon Dioxide BUN Creatinine Glucose POC Glucose 127 H 191 H Lactic Acid Calcium Phosphorus Magnesium AST ALT Lactate Dehydrogenase CK-MB (CK-2) C-Reactive Protein NT-Pro-B Natriuret Pep Total Protein Albumin Urine WBC (Auto) 12/18/19 12/18/19 12/19/19 17:03 20:16 00:08 WBC RBC Hgb Hct MCHC RDW MCH Lymph % (Auto) Perry % (Auto) Perry # Eos # Lymph # (Auto) Perry # (Auto) Eos # (Auto) Seg Neutrophils % Seg Neuts % (Manual) Baso # (Auto) Lymphocytes % (Manual) Monocytes % (Manual) Eosinophils % (Manual) Basophils % (Manual) Seg Neutrophils # Seg Neutrophils # Man Lymphocytes # (Manual) Monocytes # (Manual) Eosinophils # (Manual) Nucleated RBC % Basophils # (Manual) APTT Heparin Anti-Xa Level ABG pH POC ABG pO2 ABG pO2 ABG HCO3 ABG O2 Saturation ABG Base Excess POC ABG pCO2 ABG Hemoglobin ABG Oxyhemoglobin Oxyhemoglobin Sodium Potassium Chloride Carbon Dioxide BUN Creatinine Glucose POC Glucose 133 H 128 H 129 H Lactic Acid Calcium Phosphorus Magnesium AST ALT Lactate Dehydrogenase CK-MB (CK-2) C-Reactive Protein NT-Pro-B Natriuret Pep Total Protein Albumin Urine WBC (Auto) 12/19/19 12/19/19 12/19/19 04:45 04:45 05:35 WBC RBC Hgb Hct MCHC RDW MCH Lymph % (Auto) Perry % (Auto) Perry # Eos # Lymph # (Auto) Perry # (Auto) Eos # (Auto) Seg Neutrophils % Seg Neuts % (Manual) Baso # (Auto) Lymphocytes % (Manual) Monocytes % (Manual) Eosinophils % (Manual) Basophils % (Manual) Seg Neutrophils # Seg Neutrophils # Man Lymphocytes # (Manual) Monocytes # (Manual) Eosinophils # (Manual) Nucleated RBC % Basophils # (Manual) APTT Heparin Anti-Xa Level 0.17 L ABG pH POC ABG pO2 ABG pO2 ABG HCO3 ABG O2 Saturation ABG Base Excess POC ABG pCO2 ABG Hemoglobin ABG Oxyhemoglobin Oxyhemoglobin Sodium Potassium Chloride Carbon Dioxide BUN Creatinine Glucose POC Glucose 120 H Lactic Acid Calcium Phosphorus Magnesium AST ALT Lactate Dehydrogenase 228 H CK-MB (CK-2) C-Reactive Protein NT-Pro-B Natriuret Pep Total Protein Albumin Urine WBC (Auto) 12/19/19 12/19/19 12/19/19 09:20 11:32 11:32 WBC 14.6 H RBC 3.08 L Hgb 9.0 L Hct 26.8 L MCHC RDW 15.9 H MCH Lymph % (Auto) Perry % (Auto) Perry # Eos # Lymph # (Auto) Perry # (Auto) Eos # (Auto) Seg Neutrophils % Seg Neuts % (Manual) 82.0 H Baso # (Auto) Lymphocytes % (Manual) 10.0 L Monocytes % (Manual) Eosinophils % (Manual) Basophils % (Manual) Seg Neutrophils # Seg Neutrophils # Man 12.0 H Lymphocytes # (Manual) Monocytes # (Manual) 0.9 H Eosinophils # (Manual) Nucleated RBC % 1.0 H Basophils # (Manual) APTT Heparin Anti-Xa Level ABG pH 7.451 H POC ABG pO2 ABG pO2 62.6 L ABG HCO3 33.2 H ABG O2 Saturation 93.8 L ABG Base Excess 8.3 H POC ABG pCO2 ABG Hemoglobin 8.3 L ABG Oxyhemoglobin Oxyhemoglobin 91.9 L Sodium Potassium Chloride 95.0 L Carbon Dioxide 33 H BUN 22 H Creatinine 0.6 L Glucose 150 H POC Glucose Lactic Acid Calcium Phosphorus Magnesium AST ALT Lactate Dehydrogenase CK-MB (CK-2) C-Reactive Protein NT-Pro-B Natriuret Pep Total Protein 6.2 L Albumin 2.4 L Urine WBC (Auto) 12/19/19 12/19/19 12/20/19 11:56 18:17 00:09 WBC RBC Hgb Hct MCHC RDW MCH Lymph % (Auto) Perry % (Auto) Perry # Eos # Lymph # (Auto) Perry # (Auto) Eos # (Auto) Seg Neutrophils % Seg Neuts % (Manual) Baso # (Auto) Lymphocytes % (Manual) Monocytes % (Manual) Eosinophils % (Manual) Basophils % (Manual) Seg Neutrophils # Seg Neutrophils # Man Lymphocytes # (Manual) Monocytes # (Manual) Eosinophils # (Manual) Nucleated RBC % Basophils # (Manual) APTT Heparin Anti-Xa Level ABG pH POC ABG pO2 ABG pO2 ABG HCO3 ABG O2 Saturation ABG Base Excess POC ABG pCO2 ABG Hemoglobin ABG Oxyhemoglobin Oxyhemoglobin Sodium Potassium Chloride Carbon Dioxide BUN Creatinine Glucose POC Glucose 156 H 156 H 155 H Lactic Acid Calcium Phosphorus Magnesium AST ALT Lactate Dehydrogenase CK-MB (CK-2) C-Reactive Protein NT-Pro-B Natriuret Pep Total Protein Albumin Urine WBC (Auto) 12/20/19 12/20/19 12/20/19 05:26 06:02 18:17 WBC RBC Hgb Hct MCHC RDW MCH Lymph % (Auto) Perry % (Auto) Perry # Eos # Lymph # (Auto) Perry # (Auto) Eos # (Auto) Seg Neutrophils % Seg Neuts % (Manual) Baso # (Auto) Lymphocytes % (Manual) Monocytes % (Manual) Eosinophils % (Manual) Basophils % (Manual) Seg Neutrophils # Seg Neutrophils # Man Lymphocytes # (Manual) Monocytes # (Manual) Eosinophils # (Manual) Nucleated RBC % Basophils # (Manual) APTT Heparin Anti-Xa Level 0.19 L ABG pH POC ABG pO2 ABG pO2 ABG HCO3 ABG O2 Saturation ABG Base Excess POC ABG pCO2 ABG Hemoglobin ABG Oxyhemoglobin Oxyhemoglobin Sodium Potassium Chloride Carbon Dioxide BUN Creatinine Glucose POC Glucose 137 H 128 H Lactic Acid Calcium Phosphorus Magnesium AST ALT Lactate Dehydrogenase CK-MB (CK-2) C-Reactive Protein NT-Pro-B Natriuret Pep Total Protein Albumin Urine WBC (Auto) 12/20/19 12/21/19 12/21/19 23:34 05:31 05:31 WBC 12.7 H RBC 3.09 L Hgb 8.9 L Hct 27.4 L MCHC RDW 15.8 H MCH Lymph % (Auto) 12.1 L Perry % (Auto) 7.8 H Perry # Eos # Lymph # (Auto) Perry # (Auto) 1.0 H Eos # (Auto) Seg Neutrophils % 77.1 H Seg Neuts % (Manual) Baso # (Auto) Lymphocytes % (Manual) Monocytes % (Manual) Eosinophils % (Manual) Basophils % (Manual) Seg Neutrophils # 9.8 H Seg Neutrophils # Man Lymphocytes # (Manual) Monocytes # (Manual) Eosinophils # (Manual) Nucleated RBC % Basophils # (Manual) APTT Heparin Anti-Xa Level ABG pH POC ABG pO2 ABG pO2 ABG HCO3 ABG O2 Saturation ABG Base Excess POC ABG pCO2 ABG Hemoglobin ABG Oxyhemoglobin Oxyhemoglobin Sodium Potassium Chloride 96.9 L Carbon Dioxide 37 H BUN 27 H Creatinine 0.7 L Glucose 140 H POC Glucose 145 H Lactic Acid Calcium Phosphorus Magnesium AST ALT Lactate Dehydrogenase CK-MB (CK-2) C-Reactive Protein NT-Pro-B Natriuret Pep Total Protein Albumin Urine WBC (Auto) 12/21/19 12/21/19 12/21/19 05:38 10:13 11:51 WBC RBC Hgb Hct MCHC RDW MCH Lymph % (Auto) Perry % (Auto) Perry # Eos # Lymph # (Auto) Perry # (Auto) Eos # (Auto) Seg Neutrophils % Seg Neuts % (Manual) Baso # (Auto) Lymphocytes % (Manual) Monocytes % (Manual) Eosinophils % (Manual) Basophils % (Manual) Seg Neutrophils # Seg Neutrophils # Man Lymphocytes # (Manual) Monocytes # (Manual) Eosinophils # (Manual) Nucleated RBC % Basophils # (Manual) APTT 23.9 L Heparin Anti-Xa Level < 0.10 L ABG pH POC ABG pO2 ABG pO2 ABG HCO3 ABG O2 Saturation ABG Base Excess POC ABG pCO2 ABG Hemoglobin ABG Oxyhemoglobin Oxyhemoglobin Sodium Potassium Chloride Carbon Dioxide BUN Creatinine Glucose POC Glucose 151 H 145 H Lactic Acid Calcium Phosphorus Magnesium AST ALT Lactate Dehydrogenase CK-MB (CK-2) C-Reactive Protein NT-Pro-B Natriuret Pep Total Protein Albumin Urine WBC (Auto) 12/21/19 12/22/19 12/22/19 17:16 00:01 01:33 WBC RBC Hgb Hct MCHC RDW MCH Lymph % (Auto) Perry % (Auto) Perry # Eos # Lymph # (Auto) Perry # (Auto) Eos # (Auto) Seg Neutrophils % Seg Neuts % (Manual) Baso # (Auto) Lymphocytes % (Manual) Monocytes % (Manual) Eosinophils % (Manual) Basophils % (Manual) Seg Neutrophils # Seg Neutrophils # Man Lymphocytes # (Manual) Monocytes # (Manual) Eosinophils # (Manual) Nucleated RBC % Basophils # (Manual) APTT Heparin Anti-Xa Level 0.10 L ABG pH POC ABG pO2 ABG pO2 ABG HCO3 ABG O2 Saturation ABG Base Excess POC ABG pCO2 ABG Hemoglobin ABG Oxyhemoglobin Oxyhemoglobin Sodium Potassium Chloride Carbon Dioxide BUN Creatinine Glucose POC Glucose 167 H 179 H Lactic Acid Calcium Phosphorus Magnesium AST ALT Lactate Dehydrogenase CK-MB (CK-2) C-Reactive Protein NT-Pro-B Natriuret Pep Total Protein Albumin Urine WBC (Auto) 12/22/19 12/22/19 12/22/19 03:22 05:10 05:10 WBC 13.8 H RBC 3.20 L Hgb 8.9 L Hct 28.1 L MCHC RDW 15.9 H MCH Lymph % (Auto) Perry % (Auto) Perry # Eos # Lymph # (Auto) Perry # (Auto) Eos # (Auto) Seg Neutrophils % Seg Neuts % (Manual) Baso # (Auto) Lymphocytes % (Manual) Monocytes % (Manual) Eosinophils % (Manual) Basophils % (Manual) Seg Neutrophils # Seg Neutrophils # Man Lymphocytes # (Manual) Monocytes # (Manual) Eosinophils # (Manual) Nucleated RBC % Basophils # (Manual) APTT Heparin Anti-Xa Level ABG pH POC ABG pO2 52.3 L ABG pO2 ABG HCO3 ABG O2 Saturation ABG Base Excess POC ABG pCO2 52.9 H ABG Hemoglobin 10.7 L ABG Oxyhemoglobin 84 L Oxyhemoglobin Sodium Potassium Chloride 96.6 L Carbon Dioxide BUN 25 H Creatinine 0.7 L Glucose 129 H POC Glucose Lactic Acid Calcium Phosphorus Magnesium AST ALT Lactate Dehydrogenase CK-MB (CK-2) C-Reactive Protein NT-Pro-B Natriuret Pep Total Protein Albumin Urine WBC (Auto) 12/22/19 12/22/19 12/22/19 05:18 12:32 12:43 WBC RBC Hgb Hct MCHC RDW MCH Lymph % (Auto) Perry % (Auto) Perry # Eos # Lymph # (Auto) Perry # (Auto) Eos # (Auto) Seg Neutrophils % Seg Neuts % (Manual) Baso # (Auto) Lymphocytes % (Manual) Monocytes % (Manual) Eosinophils % (Manual) Basophils % (Manual) Seg Neutrophils # Seg Neutrophils # Man Lymphocytes # (Manual) Monocytes # (Manual) Eosinophils # (Manual) Nucleated RBC % Basophils # (Manual) APTT Heparin Anti-Xa Level 0.18 L ABG pH POC ABG pO2 ABG pO2 ABG HCO3 ABG O2 Saturation ABG Base Excess POC ABG pCO2 ABG Hemoglobin ABG Oxyhemoglobin Oxyhemoglobin Sodium Potassium Chloride Carbon Dioxide BUN Creatinine Glucose POC Glucose 131 H 208 H Lactic Acid Calcium Phosphorus Magnesium AST ALT Lactate Dehydrogenase CK-MB (CK-2) C-Reactive Protein NT-Pro-B Natriuret Pep Total Protein Albumin Urine WBC (Auto) 12/22/19 12/22/19 12/23/19 17:44 23:20 03:51 WBC 15.2 H RBC 3.43 L Hgb 9.6 L Hct 30.3 L MCHC RDW 15.9 H MCH Lymph % (Auto) Perry % (Auto) Perry # Eos # Lymph # (Auto) Perry # (Auto) Eos # (Auto) Seg Neutrophils % Seg Neuts % (Manual) Baso # (Auto) Lymphocytes % (Manual) Monocytes % (Manual) Eosinophils % (Manual) Basophils % (Manual) Seg Neutrophils # Seg Neutrophils # Man Lymphocytes # (Manual) Monocytes # (Manual) Eosinophils # (Manual) Nucleated RBC % Basophils # (Manual) APTT Heparin Anti-Xa Level ABG pH POC ABG pO2 ABG pO2 ABG HCO3 ABG O2 Saturation ABG Base Excess POC ABG pCO2 ABG Hemoglobin ABG Oxyhemoglobin Oxyhemoglobin Sodium Potassium Chloride Carbon Dioxide BUN Creatinine Glucose POC Glucose 209 H 119 H Lactic Acid Calcium Phosphorus Magnesium AST ALT Lactate Dehydrogenase CK-MB (CK-2) C-Reactive Protein NT-Pro-B Natriuret Pep Total Protein Albumin Urine WBC (Auto) 12/23/19 12/23/19 12/23/19 03:51 05:31 12:09 WBC RBC Hgb Hct MCHC RDW MCH Lymph % (Auto) Perry % (Auto) Perry # Eos # Lymph # (Auto) Perry # (Auto) Eos # (Auto) Seg Neutrophils % Seg Neuts % (Manual) Baso # (Auto) Lymphocytes % (Manual) Monocytes % (Manual) Eosinophils % (Manual) Basophils % (Manual) Seg Neutrophils # Seg Neutrophils # Man Lymphocytes # (Manual) Monocytes # (Manual) Eosinophils # (Manual) Nucleated RBC % Basophils # (Manual) APTT Heparin Anti-Xa Level ABG pH POC ABG pO2 ABG pO2 ABG HCO3 ABG O2 Saturation ABG Base Excess POC ABG pCO2 ABG Hemoglobin ABG Oxyhemoglobin Oxyhemoglobin Sodium Potassium Chloride 97.2 L Carbon Dioxide 31 H BUN 23 H Creatinine 0.6 L Glucose 153 H POC Glucose 149 H 144 H Lactic Acid Calcium Phosphorus Magnesium AST ALT Lactate Dehydrogenase CK-MB (CK-2) C-Reactive Protein NT-Pro-B Natriuret Pep Total Protein Albumin Urine WBC (Auto) 12/23/19 12/23/19 12/23/19 15:30 17:49 23:31 WBC RBC Hgb Hct MCHC RDW MCH Lymph % (Auto) Perry % (Auto) Perry # Eos # Lymph # (Auto) Perry # (Auto) Eos # (Auto) Seg Neutrophils % Seg Neuts % (Manual) Baso # (Auto) Lymphocytes % (Manual) Monocytes % (Manual) Eosinophils % (Manual) Basophils % (Manual) Seg Neutrophils # Seg Neutrophils # Man Lymphocytes # (Manual) Monocytes # (Manual) Eosinophils # (Manual) Nucleated RBC % Basophils # (Manual) APTT Heparin Anti-Xa Level 0.21 L ABG pH POC ABG pO2 ABG pO2 ABG HCO3 ABG O2 Saturation ABG Base Excess POC ABG pCO2 ABG Hemoglobin ABG Oxyhemoglobin Oxyhemoglobin Sodium Potassium Chloride Carbon Dioxide BUN Creatinine Glucose POC Glucose 192 H 151 H Lactic Acid Calcium Phosphorus Magnesium AST ALT Lactate Dehydrogenase CK-MB (CK-2) C-Reactive Protein NT-Pro-B Natriuret Pep Total Protein Albumin Urine WBC (Auto) 12/24/19 12/24/19 12/24/19 05:34 12:13 16:50 WBC RBC Hgb Hct MCHC RDW MCH Lymph % (Auto) Perry % (Auto) Perry # Eos # Lymph # (Auto) Perry # (Auto) Eos # (Auto) Seg Neutrophils % Seg Neuts % (Manual) Baso # (Auto) Lymphocytes % (Manual) Monocytes % (Manual) Eosinophils % (Manual) Basophils % (Manual) Seg Neutrophils # Seg Neutrophils # Man Lymphocytes # (Manual) Monocytes # (Manual) Eosinophils # (Manual) Nucleated RBC % Basophils # (Manual) APTT Heparin Anti-Xa Level 0.16 L ABG pH POC ABG pO2 ABG pO2 ABG HCO3 ABG O2 Saturation ABG Base Excess POC ABG pCO2 ABG Hemoglobin ABG Oxyhemoglobin Oxyhemoglobin Sodium Potassium Chloride Carbon Dioxide BUN Creatinine Glucose POC Glucose 145 H 124 H Lactic Acid Calcium Phosphorus Magnesium AST ALT Lactate Dehydrogenase CK-MB (CK-2) C-Reactive Protein NT-Pro-B Natriuret Pep Total Protein Albumin Urine WBC (Auto) 12/24/19 12/25/19 12/25/19 17:53 00:14 04:18 WBC 12.9 H RBC 3.30 L Hgb 9.1 L Hct 28.8 L MCHC RDW 16.4 H MCH Lymph % (Auto) Perry % (Auto) 7.8 H Perry # Eos # Lymph # (Auto) Perry # (Auto) 1.0 H Eos # (Auto) Seg Neutrophils % 75.5 H Seg Neuts % (Manual) Baso # (Auto) Lymphocytes % (Manual) Monocytes % (Manual) Eosinophils % (Manual) Basophils % (Manual) Seg Neutrophils # 9.7 H Seg Neutrophils # Man Lymphocytes # (Manual) Monocytes # (Manual) Eosinophils # (Manual) Nucleated RBC % Basophils # (Manual) APTT Heparin Anti-Xa Level ABG pH POC ABG pO2 ABG pO2 ABG HCO3 ABG O2 Saturation ABG Base Excess POC ABG pCO2 ABG Hemoglobin ABG Oxyhemoglobin Oxyhemoglobin Sodium Potassium Chloride Carbon Dioxide BUN Creatinine Glucose POC Glucose 164 H 148 H Lactic Acid Calcium Phosphorus Magnesium AST ALT Lactate Dehydrogenase CK-MB (CK-2) C-Reactive Protein NT-Pro-B Natriuret Pep Total Protein Albumin Urine WBC (Auto) 12/25/19 12/25/19 12/25/19 04:18 05:38 11:44 WBC RBC Hgb Hct MCHC RDW MCH Lymph % (Auto) Perry % (Auto) Perry # Eos # Lymph # (Auto) Perry # (Auto) Eos # (Auto) Seg Neutrophils % Seg Neuts % (Manual) Baso # (Auto) Lymphocytes % (Manual) Monocytes % (Manual) Eosinophils % (Manual) Basophils % (Manual) Seg Neutrophils # Seg Neutrophils # Man Lymphocytes # (Manual) Monocytes # (Manual) Eosinophils # (Manual) Nucleated RBC % Basophils # (Manual) APTT Heparin Anti-Xa Level ABG pH POC ABG pO2 ABG pO2 ABG HCO3 ABG O2 Saturation ABG Base Excess POC ABG pCO2 ABG Hemoglobin ABG Oxyhemoglobin Oxyhemoglobin Sodium Potassium Chloride Carbon Dioxide 33 H BUN 27 H Creatinine 0.6 L Glucose 132 H POC Glucose 152 H 166 H Lactic Acid Calcium Phosphorus Magnesium AST ALT Lactate Dehydrogenase CK-MB (CK-2) C-Reactive Protein NT-Pro-B Natriuret Pep Total Protein Albumin Urine WBC (Auto) 12/25/19 12/26/19 12/26/19 18:29 00:17 00:18 WBC RBC Hgb Hct MCHC RDW MCH Lymph % (Auto) Perry % (Auto) Perry # Eos # Lymph # (Auto) Perry # (Auto) Eos # (Auto) Seg Neutrophils % Seg Neuts % (Manual) Baso # (Auto) Lymphocytes % (Manual) Monocytes % (Manual) Eosinophils % (Manual) Basophils % (Manual) Seg Neutrophils # Seg Neutrophils # Man Lymphocytes # (Manual) Monocytes # (Manual) Eosinophils # (Manual) Nucleated RBC % Basophils # (Manual) APTT Heparin Anti-Xa Level ABG pH POC ABG pO2 ABG pO2 ABG HCO3 ABG O2 Saturation ABG Base Excess POC ABG pCO2 ABG Hemoglobin ABG Oxyhemoglobin Oxyhemoglobin Sodium Potassium Chloride 97.8 L Carbon Dioxide BUN 25 H Creatinine 0.6 L Glucose 140 H POC Glucose 194 H 151 H Lactic Acid Calcium Phosphorus Magnesium AST ALT Lactate Dehydrogenase CK-MB (CK-2) C-Reactive Protein NT-Pro-B Natriuret Pep Total Protein Albumin Urine WBC (Auto) 12/26/19 12/26/19 12/26/19 05:36 11:41 17:50 WBC RBC Hgb Hct MCHC RDW MCH Lymph % (Auto) Perry % (Auto) Perry # Eos # Lymph # (Auto) Perry # (Auto) Eos # (Auto) Seg Neutrophils % Seg Neuts % (Manual) Baso # (Auto) Lymphocytes % (Manual) Monocytes % (Manual) Eosinophils % (Manual) Basophils % (Manual) Seg Neutrophils # Seg Neutrophils # Man Lymphocytes # (Manual) Monocytes # (Manual) Eosinophils # (Manual) Nucleated RBC % Basophils # (Manual) APTT Heparin Anti-Xa Level ABG pH POC ABG pO2 ABG pO2 ABG HCO3 ABG O2 Saturation ABG Base Excess POC ABG pCO2 ABG Hemoglobin ABG Oxyhemoglobin Oxyhemoglobin Sodium Potassium Chloride Carbon Dioxide BUN Creatinine Glucose POC Glucose 156 H 148 H 139 H Lactic Acid Calcium Phosphorus Magnesium AST ALT Lactate Dehydrogenase CK-MB (CK-2) C-Reactive Protein NT-Pro-B Natriuret Pep Total Protein Albumin Urine WBC (Auto) 12/26/19 12/27/19 12/27/19 23:19 05:34 12:02 WBC RBC Hgb Hct MCHC RDW MCH Lymph % (Auto) Perry % (Auto) Perry # Eos # Lymph # (Auto) Perry # (Auto) Eos # (Auto) Seg Neutrophils % Seg Neuts % (Manual) Baso # (Auto) Lymphocytes % (Manual) Monocytes % (Manual) Eosinophils % (Manual) Basophils % (Manual) Seg Neutrophils # Seg Neutrophils # Man Lymphocytes # (Manual) Monocytes # (Manual) Eosinophils # (Manual) Nucleated RBC % Basophils # (Manual) APTT Heparin Anti-Xa Level ABG pH POC ABG pO2 ABG pO2 ABG HCO3 ABG O2 Saturation ABG Base Excess POC ABG pCO2 ABG Hemoglobin ABG Oxyhemoglobin Oxyhemoglobin Sodium Potassium Chloride Carbon Dioxide BUN Creatinine Glucose POC Glucose 161 H 145 H 157 H Lactic Acid Calcium Phosphorus Magnesium AST ALT Lactate Dehydrogenase CK-MB (CK-2) C-Reactive Protein NT-Pro-B Natriuret Pep Total Protein Albumin Urine WBC (Auto) 12/27/19 12/27/1912/26/20 17:35 20:11 23:00 WBC RBC Hgb Hct MCHC RDW MCH Lymph % (Auto) Perry % (Auto) Perry # Eos # Lymph # (Auto) Perry # (Auto) Eos # (Auto) Seg Neutrophils % Seg Neuts % (Manual) Baso # (Auto) Lymphocytes % (Manual) Monocytes % (Manual) Eosinophils % (Manual) Basophils % (Manual) Seg Neutrophils # Seg Neutrophils # Man Lymphocytes # (Manual) Monocytes # (Manual) Eosinophils # (Manual) Nucleated RBC % Basophils # (Manual) APTT Heparin Anti-Xa Level 0.19 L ABG pH POC ABG pO2 ABG pO2 ABG HCO3 ABG O2 Saturation ABG Base Excess POC ABG pCO2 ABG Hemoglobin ABG Oxyhemoglobin Oxyhemoglobin Sodium Potassium Chloride Carbon Dioxide BUN Creatinine Glucose POC Glucose 158 H 155 H Lactic Acid Calcium Phosphorus Magnesium AST ALT Lactate Dehydrogenase CK-MB (CK-2) C-Reactive Protein NT-Pro-B Natriuret Pep Total Protein Albumin Urine WBC (Auto) 12/27/19 12/28/19 12/28/19 23:45 02:41 02:41 WBC 13.0 H RBC 3.48 L Hgb 9.5 L Hct 30.6 L MCHC 31 L RDW 16.6 H MCH 27 L Lymph % (Auto) 13.0 L Perry % (Auto) 8.0 H Perry # Eos # Lymph # (Auto) Perry # (Auto) 1.0 H Eos # (Auto) Seg Neutrophils % 76.3 H Seg Neuts % (Manual) Baso # (Auto) Lymphocytes % (Manual) Monocytes % (Manual) Eosinophils % (Manual) Basophils % (Manual) Seg Neutrophils # 9.9 H Seg Neutrophils # Man Lymphocytes # (Manual) Monocytes # (Manual) Eosinophils # (Manual) Nucleated RBC % Basophils # (Manual) APTT Heparin Anti-Xa Level ABG pH POC ABG pO2 ABG pO2 ABG HCO3 ABG O2 Saturation ABG Base Excess POC ABG pCO2 ABG Hemoglobin ABG Oxyhemoglobin Oxyhemoglobin Sodium Potassium Chloride Carbon Dioxide BUN 22 H Creatinine 0.6 L Glucose 101 H POC Glucose 130 H Lactic Acid Calcium Phosphorus Magnesium AST ALT Lactate Dehydrogenase CK-MB (CK-2) C-Reactive Protein NT-Pro-B Natriuret Pep Total Protein Albumin Urine WBC (Auto) 1012/28/19 12/28/19 06:00 12:34 18:13 WBC RBC Hgb Hct MCHC RDW MCH Lymph % (Auto) Perry % (Auto) Perry # Eos # Lymph # (Auto) Perry # (Auto) Eos # (Auto) Seg Neutrophils % Seg Neuts % (Manual) Baso # (Auto) Lymphocytes % (Manual) Monocytes % (Manual) Eosinophils % (Manual) Basophils % (Manual) Seg Neutrophils # Seg Neutrophils # Man Lymphocytes # (Manual) Monocytes # (Manual) Eosinophils # (Manual) Nucleated RBC % Basophils # (Manual) APTT Heparin Anti-Xa Level ABG pH POC ABG pO2 ABG pO2 ABG HCO3 ABG O2 Saturation ABG Base Excess POC ABG pCO2 ABG Hemoglobin ABG Oxyhemoglobin Oxyhemoglobin Sodium Potassium Chloride Carbon Dioxide BUN Creatinine Glucose POC Glucose 150 H 161 H 128 H Lactic Acid Calcium Phosphorus Magnesium AST ALT Lactate Dehydrogenase CK-MB (CK-2) C-Reactive Protein NT-Pro-B Natriuret Pep Total Protein Albumin Urine WBC (Auto) 12/28/19 12/29/19 12/29/19 23:36 05:21 11:40 WBC RBC Hgb Hct MCHC RDW MCH Lymph % (Auto) Perry % (Auto) Perry # Eos # Lymph # (Auto) Perry # (Auto) Eos # (Auto) Seg Neutrophils % Seg Neuts % (Manual) Baso # (Auto) Lymphocytes % (Manual) Monocytes % (Manual) Eosinophils % (Manual) Basophils % (Manual) Seg Neutrophils # Seg Neutrophils # Man Lymphocytes # (Manual) Monocytes # (Manual) Eosinophils # (Manual) Nucleated RBC % Basophils # (Manual) APTT Heparin Anti-Xa Level ABG pH POC ABG pO2 ABG pO2 ABG HCO3 ABG O2 Saturation ABG Base Excess POC ABG pCO2 ABG Hemoglobin ABG Oxyhemoglobin Oxyhemoglobin Sodium Potassium Chloride Carbon Dioxide BUN Creatinine Glucose POC Glucose 137 H 136 H 166 H Lactic Acid Calcium Phosphorus Magnesium AST ALT Lactate Dehydrogenase CK-MB (CK-2) C-Reactive Protein NT-Pro-B Natriuret Pep Total Protein Albumin Urine WBC (Auto) 12/29/19 12/29/19 12/29/19 17:23 19:21 23:38 WBC RBC Hgb Hct MCHC RDW MCH Lymph % (Auto) Perry % (Auto) Perry # Eos # Lymph # (Auto) Perry # (Auto) Eos # (Auto) Seg Neutrophils % Seg Neuts % (Manual) Baso # (Auto) Lymphocytes % (Manual) Monocytes % (Manual) Eosinophils % (Manual) Basophils % (Manual) Seg Neutrophils # Seg Neutrophils # Man Lymphocytes # (Manual) Monocytes # (Manual) Eosinophils # (Manual) Nucleated RBC % Basophils # (Manual) APTT Heparin Anti-Xa Level 0.20 L ABG pH POC ABG pO2 ABG pO2 ABG HCO3 ABG O2 Saturation ABG Base Excess POC ABG pCO2 ABG Hemoglobin ABG Oxyhemoglobin Oxyhemoglobin Sodium Potassium Chloride Carbon Dioxide BUN Creatinine Glucose POC Glucose 144 H 141 H Lactic Acid Calcium Phosphorus Magnesium AST ALT Lactate Dehydrogenase CK-MB (CK-2) C-Reactive Protein NT-Pro-B Natriuret Pep Total Protein Albumin Urine WBC (Auto) 12/30/19 12/30/19 12/30/19 03:58 03:58 04:59 WBC RBC 3.54 L Hgb 9.8 L Hct 30.7 L MCHC RDW 16.8 H MCH Lymph % (Auto) Perry % (Auto) Perry # Eos # Lymph # (Auto) Perry # (Auto) Eos # (Auto) Seg Neutrophils % Seg Neuts % (Manual) Baso # (Auto) Lymphocytes % (Manual) Monocytes % (Manual) Eosinophils % (Manual) Basophils % (Manual) Seg Neutrophils # Seg Neutrophils # Man Lymphocytes # (Manual) Monocytes # (Manual) Eosinophils # (Manual) Nucleated RBC % Basophils # (Manual) APTT Heparin Anti-Xa Level ABG pH POC ABG pO2 ABG pO2 ABG HCO3 29.8 H ABG O2 Saturation ABG Base Excess 4.8 H POC ABG pCO2 ABG Hemoglobin 11.2 L ABG Oxyhemoglobin Oxyhemoglobin 93.8 L Sodium Potassium Chloride 97.8 L Carbon Dioxide BUN 26 H Creatinine Glucose 168 H POC Glucose Lactic Acid Calcium Phosphorus Magnesium AST ALT Lactate Dehydrogenase CK-MB (CK-2) C-Reactive Protein NT-Pro-B Natriuret Pep Total Protein Albumin Urine WBC (Auto) 12/30/19 12/30/19 12/30/19 05:45 11:34 17:28 WBC RBC Hgb Hct MCHC RDW MCH Lymph % (Auto) Perry % (Auto) Perry # Eos # Lymph # (Auto) Perry # (Auto) Eos # (Auto) Seg Neutrophils % Seg Neuts % (Manual) Baso # (Auto) Lymphocytes % (Manual) Monocytes % (Manual) Eosinophils % (Manual) Basophils % (Manual) Seg Neutrophils # Seg Neutrophils # Man Lymphocytes # (Manual) Monocytes # (Manual) Eosinophils # (Manual) Nucleated RBC % Basophils # (Manual) APTT Heparin Anti-Xa Level ABG pH POC ABG pO2 ABG pO2 ABG HCO3 ABG O2 Saturation ABG Base Excess POC ABG pCO2 ABG Hemoglobin ABG Oxyhemoglobin Oxyhemoglobin Sodium Potassium Chloride Carbon Dioxide BUN Creatinine Glucose POC Glucose 163 H 180 H 150 H Lactic Acid Calcium Phosphorus Magnesium AST ALT Lactate Dehydrogenase CK-MB (CK-2) C-Reactive Protein NT-Pro-B Natriuret Pep Total Protein Albumin Urine WBC (Auto) 12/30/19 12/31/19 12/31/19 23:43 04:55 05:07 WBC RBC Hgb Hct MCHC RDW MCH Lymph % (Auto) Perry % (Auto) Perry # Eos # Lymph # (Auto) Perry # (Auto) Eos # (Auto) Seg Neutrophils % Seg Neuts % (Manual) Baso # (Auto) Lymphocytes % (Manual) Monocytes % (Manual) Eosinophils % (Manual) Basophils % (Manual) Seg Neutrophils # Seg Neutrophils # Man Lymphocytes # (Manual) Monocytes # (Manual) Eosinophils # (Manual) Nucleated RBC % Basophils # (Manual) APTT Heparin Anti-Xa Level ABG pH POC ABG pO2 ABG pO2 ABG HCO3 ABG O2 Saturation ABG Base Excess POC ABG pCO2 ABG Hemoglobin ABG Oxyhemoglobin Oxyhemoglobin Sodium Potassium 5.6 H D Chloride Carbon Dioxide BUN 33 H Creatinine Glucose 131 H POC Glucose 142 H 134 H Lactic Acid Calcium Phosphorus Magnesium AST ALT Lactate Dehydrogenase CK-MB (CK-2) C-Reactive Protein NT-Pro-B Natriuret Pep Total Protein Albumin Urine WBC (Auto) 12/31/19 12/31/19 12/31/19 11:30 17:19 17:36 WBC RBC Hgb Hct MCHC RDW MCH Lymph % (Auto) Perry % (Auto) Perry # Eos # Lymph # (Auto) Perry # (Auto) Eos # (Auto) Seg Neutrophils % Seg Neuts % (Manual) Baso # (Auto) Lymphocytes % (Manual) Monocytes % (Manual) Eosinophils % (Manual) Basophils % (Manual) Seg Neutrophils # Seg Neutrophils # Man Lymphocytes # (Manual) Monocytes # (Manual) Eosinophils # (Manual) Nucleated RBC % Basophils # (Manual) APTT Heparin Anti-Xa Level ABG pH POC ABG pO2 ABG pO2 ABG HCO3 ABG O2 Saturation ABG Base Excess POC ABG pCO2 ABG Hemoglobin ABG Oxyhemoglobin Oxyhemoglobin Sodium Potassium Chloride Carbon Dioxide BUN 35 H Creatinine Glucose 156 H POC Glucose 158 H 181 H Lactic Acid Calcium Phosphorus Magnesium AST ALT Lactate Dehydrogenase CK-MB (CK-2) C-Reactive Protein NT-Pro-B Natriuret Pep Total Protein Albumin Urine WBC (Auto) 12/31/19 12/31/19 12/31/19 18:16 19:41 21:53 WBC RBC Hgb Hct MCHC RDW MCH Lymph % (Auto) Perry % (Auto) Perry # Eos # Lymph # (Auto) Perry # (Auto) Eos # (Auto) Seg Neutrophils % Seg Neuts % (Manual) Baso # (Auto) Lymphocytes % (Manual) Monocytes % (Manual) Eosinophils % (Manual) Basophils % (Manual) Seg Neutrophils # Seg Neutrophils # Man Lymphocytes # (Manual) Monocytes # (Manual) Eosinophils # (Manual) Nucleated RBC % Basophils # (Manual) APTT Heparin Anti-Xa Level 0.20 L ABG pH POC ABG pO2 ABG pO2 ABG HCO3 ABG O2 Saturation ABG Base Excess POC ABG pCO2 ABG Hemoglobin ABG Oxyhemoglobin Oxyhemoglobin Sodium Potassium Chloride Carbon Dioxide BUN 34 H Creatinine Glucose 169 H POC Glucose 141 H Lactic Acid Calcium Phosphorus Magnesium AST ALT Lactate Dehydrogenase CK-MB (CK-2) C-Reactive Protein NT-Pro-B Natriuret Pep Total Protein Albumin Urine WBC (Auto) 12/31/19 01/01/20 01/01/20 23:51 05:17 10:40 WBC RBC Hgb Hct MCHC RDW MCH Lymph % (Auto) Perry % (Auto) Perry # Eos # Lymph # (Auto) Perry # (Auto) Eos # (Auto) Seg Neutrophils % Seg Neuts % (Manual) Baso # (Auto) Lymphocytes % (Manual) Monocytes % (Manual) Eosinophils % (Manual) Basophils % (Manual) Seg Neutrophils # Seg Neutrophils # Man Lymphocytes # (Manual) Monocytes # (Manual) Eosinophils # (Manual) Nucleated RBC % Basophils # (Manual) APTT Heparin Anti-Xa Level ABG pH POC ABG pO2 ABG pO2 ABG HCO3 ABG O2 Saturation ABG Base Excess POC ABG pCO2 ABG Hemoglobin ABG Oxyhemoglobin Oxyhemoglobin Sodium Potassium Chloride Carbon Dioxide BUN 31 H Creatinine 0.7 L Glucose 137 H POC Glucose 131 H 155 H Lactic Acid Calcium Phosphorus Magnesium AST 73 H ALT 97 H Lactate Dehydrogenase CK-MB (CK-2) C-Reactive Protein NT-Pro-B Natriuret Pep 3866 H Total Protein Albumin 2.8 L Urine WBC (Auto) 01/01/20 01/01/20 01/01/20 12:26 15:33 17:53 WBC 14.3 H RBC 3.35 L Hgb 9.1 L Hct 28.8 L MCHC RDW 17.0 H MCH 27 L Lymph % (Auto) 7.0 L Perry % (Auto) 7.6 H Perry # Eos # Lymph # (Auto) 1.0 L Perry # (Auto) 1.1 H Eos # (Auto) Seg Neutrophils % 83.3 H Seg Neuts % (Manual) Baso # (Auto) Lymphocytes % (Manual) Monocytes % (Manual) Eosinophils % (Manual) Basophils % (Manual) Seg Neutrophils # 12.0 H Seg Neutrophils # Man Lymphocytes # (Manual) Monocytes # (Manual) Eosinophils # (Manual) Nucleated RBC % Basophils # (Manual) APTT Heparin Anti-Xa Level ABG pH POC ABG pO2 ABG pO2 ABG HCO3 ABG O2 Saturation ABG Base Excess POC ABG pCO2 ABG Hemoglobin ABG Oxyhemoglobin Oxyhemoglobin Sodium Potassium Chloride Carbon Dioxide BUN Creatinine Glucose POC Glucose 128 H 128 H Lactic Acid Calcium Phosphorus Magnesium AST ALT Lactate Dehydrogenase CK-MB (CK-2) C-Reactive Protein NT-Pro-B Natriuret Pep Total Protein Albumin Urine WBC (Auto) 01/01/20 01/02/20 01/02/20 23:04 05:39 07:00 WBC RBC Hgb Hct MCHC RDW MCH Lymph % (Auto) Perry % (Auto) Perry # Eos # Lymph # (Auto) Perry # (Auto) Eos # (Auto) Seg Neutrophils % Seg Neuts % (Manual) Baso # (Auto) Lymphocytes % (Manual) Monocytes % (Manual) Eosinophils % (Manual) Basophils % (Manual) Seg Neutrophils # Seg Neutrophils # Man Lymphocytes # (Manual) Monocytes # (Manual) Eosinophils # (Manual) Nucleated RBC % Basophils # (Manual) APTT Heparin Anti-Xa Level 0.13 L ABG pH POC ABG pO2 ABG pO2 ABG HCO3 ABG O2 Saturation ABG Base Excess POC ABG pCO2 ABG Hemoglobin ABG Oxyhemoglobin Oxyhemoglobin Sodium Potassium Chloride Carbon Dioxide BUN Creatinine Glucose POC Glucose 120 H 169 H Lactic Acid Calcium Phosphorus Magnesium AST ALT Lactate Dehydrogenase CK-MB (CK-2) C-Reactive Protein NT-Pro-B Natriuret Pep Total Protein Albumin Urine WBC (Auto) 01/02/20 01/02/20 01/02/20 12:15 14:06 17:58 WBC RBC Hgb Hct MCHC RDW MCH Lymph % (Auto) Perry % (Auto) Perry # Eos # Lymph # (Auto) Perry # (Auto) Eos # (Auto) Seg Neutrophils % Seg Neuts % (Manual) Baso # (Auto) Lymphocytes % (Manual) Monocytes % (Manual) Eosinophils % (Manual) Basophils % (Manual) Seg Neutrophils # Seg Neutrophils # Man Lymphocytes # (Manual) Monocytes # (Manual) Eosinophils # (Manual) Nucleated RBC % Basophils # (Manual) APTT Heparin Anti-Xa Level < 0.10 L ABG pH POC ABG pO2 ABG pO2 ABG HCO3 ABG O2 Saturation ABG Base Excess POC ABG pCO2 ABG Hemoglobin ABG Oxyhemoglobin Oxyhemoglobin Sodium Potassium Chloride Carbon Dioxide BUN Creatinine Glucose POC Glucose 190 H 198 H Lactic Acid Calcium Phosphorus Magnesium AST ALT Lactate Dehydrogenase CK-MB (CK-2) C-Reactive Protein NT-Pro-B Natriuret Pep Total Protein Albumin Urine WBC (Auto) 01/02/20 01/02/20 01/03/20 21:43 23:33 05:42 WBC RBC Hgb Hct MCHC RDW MCH Lymph % (Auto) Perry % (Auto) Perry # Eos # Lymph # (Auto) Perry # (Auto) Eos # (Auto) Seg Neutrophils % Seg Neuts % (Manual) Baso # (Auto) Lymphocytes % (Manual) Monocytes % (Manual) Eosinophils % (Manual) Basophils % (Manual) Seg Neutrophils # Seg Neutrophils # Man Lymphocytes # (Manual) Monocytes # (Manual) Eosinophils # (Manual) Nucleated RBC % Basophils # (Manual) APTT Heparin Anti-Xa Level 0.10 L ABG pH POC ABG pO2 ABG pO2 ABG HCO3 ABG O2 Saturation ABG Base Excess POC ABG pCO2 ABG Hemoglobin ABG Oxyhemoglobin Oxyhemoglobin Sodium Potassium Chloride Carbon Dioxide BUN Creatinine Glucose POC Glucose 180 H 163 H Lactic Acid Calcium Phosphorus Magnesium AST ALT Lactate Dehydrogenase CK-MB (CK-2) C-Reactive Protein NT-Pro-B Natriuret Pep Total Protein Albumin Urine WBC (Auto) 01/03/20 01/03/20 01/03/20 06:50 07:25 07:45 WBC 12.1 H RBC 3.35 L Hgb 9.0 L Hct 28.9 L MCHC 31 L RDW 16.6 H MCH 27 L Lymph % (Auto) 13.0 L Perry % (Auto) 8.6 H Perry # Eos # Lymph # (Auto) Perry # (Auto) 1.0 H Eos # (Auto) Seg Neutrophils % 75.9 H Seg Neuts % (Manual) Baso # (Auto) Lymphocytes % (Manual) Monocytes % (Manual) Eosinophils % (Manual) Basophils % (Manual) Seg Neutrophils # 9.2 H Seg Neutrophils # Man Lymphocytes # (Manual) Monocytes # (Manual) Eosinophils # (Manual) Nucleated RBC % Basophils # (Manual) APTT Heparin Anti-Xa Level 0.29 L ABG pH POC ABG pO2 ABG pO2 ABG HCO3 ABG O2 Saturation ABG Base Excess POC ABG pCO2 ABG Hemoglobin ABG Oxyhemoglobin Oxyhemoglobin Sodium Potassium 3.3 L D Chloride Carbon Dioxide 35 H D BUN 23 H Creatinine 0.6 L Glucose 149 H POC Glucose Lactic Acid Calcium Phosphorus Magnesium AST ALT 88 H Lactate Dehydrogenase CK-MB (CK-2) C-Reactive Protein NT-Pro-B Natriuret Pep Total Protein 6.2 L Albumin 2.9 L Urine WBC (Auto) 01/03/20 01/03/20 01/03/20 12:05 17:42 18:30 WBC RBC Hgb Hct MCHC RDW MCH Lymph % (Auto) Perry % (Auto) Perry # Eos # Lymph # (Auto) Perry # (Auto) Eos # (Auto) Seg Neutrophils % Seg Neuts % (Manual) Baso # (Auto) Lymphocytes % (Manual) Monocytes % (Manual) Eosinophils % (Manual) Basophils % (Manual) Seg Neutrophils # Seg Neutrophils # Man Lymphocytes # (Manual) Monocytes # (Manual) Eosinophils # (Manual) Nucleated RBC % Basophils # (Manual) APTT Heparin Anti-Xa Level ABG pH POC ABG pO2 ABG pO2 70.7 L ABG HCO3 36.1 H ABG O2 Saturation 94.4 L ABG Base Excess 10.0 H POC ABG pCO2 ABG Hemoglobin 9.7 L ABG Oxyhemoglobin Oxyhemoglobin 91.8 L Sodium Potassium Chloride Carbon Dioxide BUN Creatinine Glucose POC Glucose 128 H 132 H Lactic Acid Calcium Phosphorus Magnesium AST ALT Lactate Dehydrogenase CK-MB (CK-2) C-Reactive Protein NT-Pro-B Natriuret Pep Total Protein Albumin Urine WBC (Auto) 01/04/20 01/04/20 01/04/20 00:10 04:26 05:23 WBC RBC Hgb Hct MCHC RDW MCH Lymph % (Auto) Perry % (Auto) Perry # Eos # Lymph # (Auto) Perry # (Auto) Eos # (Auto) Seg Neutrophils % Seg Neuts % (Manual) Baso # (Auto) Lymphocytes % (Manual) Monocytes % (Manual) Eosinophils % (Manual) Basophils % (Manual) Seg Neutrophils # Seg Neutrophils # Man Lymphocytes # (Manual) Monocytes # (Manual) Eosinophils # (Manual) Nucleated RBC % Basophils # (Manual) APTT Heparin Anti-Xa Level 0.16 L ABG pH POC ABG pO2 ABG pO2 ABG HCO3 ABG O2 Saturation ABG Base Excess POC ABG pCO2 ABG Hemoglobin ABG Oxyhemoglobin Oxyhemoglobin Sodium Potassium Chloride Carbon Dioxide BUN Creatinine Glucose POC Glucose 121 H 119 H Lactic Acid Calcium Phosphorus Magnesium AST ALT Lactate Dehydrogenase CK-MB (CK-2) C-Reactive Protein NT-Pro-B Natriuret Pep Total Protein Albumin Urine WBC (Auto) 01/04/20 01/04/20 01/04/20 09:50 09:50 12:18 WBC 15.4 H RBC 3.30 L Hgb 8.7 L Hct 28.2 L MCHC 31 L RDW 17.0 H MCH 26 L Lymph % (Auto) Perry % (Auto) 7.6 H Perry # Eos # Lymph # (Auto) Perry # (Auto) 1.2 H Eos # (Auto) Seg Neutrophils % 75.4 H Seg Neuts % (Manual) Baso # (Auto) Lymphocytes % (Manual) Monocytes % (Manual) Eosinophils % (Manual) Basophils % (Manual) Seg Neutrophils # 11.6 H Seg Neutrophils # Man Lymphocytes # (Manual) Monocytes # (Manual) Eosinophils # (Manual) Nucleated RBC % Basophils # (Manual) APTT Heparin Anti-Xa Level ABG pH POC ABG pO2 ABG pO2 ABG HCO3 ABG O2 Saturation ABG Base Excess POC ABG pCO2 ABG Hemoglobin ABG Oxyhemoglobin Oxyhemoglobin Sodium 148 H Potassium 3.5 L Chloride Carbon Dioxide 32 H BUN Creatinine 0.6 L Glucose 114 H POC Glucose 111 H Lactic Acid Calcium Phosphorus Magnesium AST ALT 59 H Lactate Dehydrogenase CK-MB (CK-2) C-Reactive Protein NT-Pro-B Natriuret Pep Total Protein Albumin 2.6 L Urine WBC (Auto) 01/05/20 01/05/20 01/05/20 04:05 04:05 05:19 WBC 11.7 H RBC 3.50 L Hgb 9.3 L Hct 29.9 L MCHC 31 L RDW 16.6 H MCH 27 L Lymph % (Auto) 13.1 L Perry % (Auto) 9.7 H Perry # Eos # Lymph # (Auto) Perry # (Auto) 1.1 H Eos # (Auto) Seg Neutrophils % 74.0 H Seg Neuts % (Manual) Baso # (Auto) Lymphocytes % (Manual) Monocytes % (Manual) Eosinophils % (Manual) Basophils % (Manual) Seg Neutrophils # 8.6 H Seg Neutrophils # Man Lymphocytes # (Manual) Monocytes # (Manual) Eosinophils # (Manual) Nucleated RBC % Basophils # (Manual) APTT Heparin Anti-Xa Level ABG pH POC ABG pO2 ABG pO2 ABG HCO3 ABG O2 Saturation ABG Base Excess POC ABG pCO2 ABG Hemoglobin ABG Oxyhemoglobin Oxyhemoglobin Sodium 151 H Potassium Chloride Carbon Dioxide 34 H BUN Creatinine 0.7 L Glucose POC Glucose 112 H Lactic Acid Calcium Phosphorus Magnesium AST ALT 59 H Lactate Dehydrogenase CK-MB (CK-2) C-Reactive Protein NT-Pro-B Natriuret Pep Total Protein 5.8 L Albumin 2.6 L Urine WBC (Auto) 01/05/20 01/06/20 01/06/20 16:04 00:23 04:44 WBC RBC 3.36 L Hgb 8.9 L Hct 28.7 L MCHC 31 L RDW 16.9 H MCH 26 L Lymph % (Auto) Perry % (Auto) 9.4 H Perry # Eos # Lymph # (Auto) Perry # (Auto) Eos # (Auto) Seg Neutrophils % Seg Neuts % (Manual) Baso # (Auto) Lymphocytes % (Manual) Monocytes % (Manual) Eosinophils % (Manual) Basophils % (Manual) Seg Neutrophils # Seg Neutrophils # Man Lymphocytes # (Manual) Monocytes # (Manual) Eosinophils # (Manual) Nucleated RBC % Basophils # (Manual) APTT Heparin Anti-Xa Level ABG pH POC ABG pO2 ABG pO2 ABG HCO3 ABG O2 Saturation ABG Base Excess POC ABG pCO2 ABG Hemoglobin ABG Oxyhemoglobin Oxyhemoglobin Sodium 151 H Potassium 3.2 L Chloride Carbon Dioxide 34 H BUN Creatinine 0.6 L Glucose POC Glucose 107 H Lactic Acid Calcium Phosphorus Magnesium AST ALT Lactate Dehydrogenase CK-MB (CK-2) C-Reactive Protein NT-Pro-B Natriuret Pep Total Protein Albumin Urine WBC (Auto) 01/06/20 01/06/20 04:44 05:33 WBC RBC Hgb Hct MCHC RDW MCH Lymph % (Auto) Perry % (Auto) Perry # Eos # Lymph # (Auto) Perry # (Auto) Eos # (Auto) Seg Neutrophils % Seg Neuts % (Manual) Baso # (Auto) Lymphocytes % (Manual) Monocytes % (Manual) Eosinophils % (Manual) Basophils % (Manual) Seg Neutrophils # Seg Neutrophils # Man Lymphocytes # (Manual) Monocytes # (Manual) Eosinophils # (Manual) Nucleated RBC % Basophils # (Manual) APTT Heparin Anti-Xa Level ABG pH POC ABG pO2 ABG pO2 ABG HCO3 ABG O2 Saturation ABG Base Excess POC ABG pCO2 ABG Hemoglobin ABG Oxyhemoglobin Oxyhemoglobin Sodium 151 H Potassium 3.4 L Chloride Carbon Dioxide 33 H BUN Creatinine 0.6 L Glucose 118 H POC Glucose 118 H Lactic Acid Calcium Phosphorus Magnesium AST ALT Lactate Dehydrogenase CK-MB (CK-2) C-Reactive Protein NT-Pro-B Natriuret Pep Total Protein 6.2 L Albumin 2.6 L Urine WBC (Auto) Chest x-ray: image reviewed (persistent bilateral interstitial infiltrates) Allied health notes reviewed: nursing
[2020-01-06] MEDS: FAMOTIDINE 20 MG TAB PO SCH ×2 (10:17→21:24)
[2020-01-06] MEDS: AMIODARONE 200 MG TAB PO SCH ×2 (10:17→21:25)
[2020-01-06] MEDS: QUEtiapine 200 MG TAB PO SCH ×2 (10:18→21:24)
[2020-01-06] MEDS: ENOXAPARIN 120 MG/0.8 ML INJ SUB-Q SCH ×2 (10:44→21:24)
[2020-01-06] MEDS: D5W/0.45% NACL 1,000 ML IV SCH (10:52)
--- NOTE | 2020-01-06 13:28 | Progress Note ---
Assessment and Plan 64 yoM with pSBO vs ileus CT a/p - possible partial distal mechanical sbo. Pt stable. NGT output 650cc over 24 hours, bilious. No f/c, WBC within normal limits Pt with hx of exlap in past. 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 NGT already in place and to LIWS 2. place PEG to gravity 3. suppository 4. hold TF, gentle IVF 5. repeat abd xray in am 6. monitor lytes and replace as needed will follow Thank you. Please call with questions. Subjective Date of service: 01/06/20 Narrative: Reconsult for SBO. Pt had copious emesis yesterday. Has not had BM in a few days. Trach and PEG done on 12/31. Pt denies pain or nausea. He is asking for water. CT A/p done yesterday and was concerning for partial small bowel obstruction. Surgery consulted for evaluation. Objective Vital Signs - 12hr 01/06/20 01/06/20 01/06/20 01:30 02:00 02:30 Temperature Pulse Rate 82 81 78 Pulse Rate [ From Monitor] Respiratory 17 22 19 Rate Blood Pressure 113/75 111/71 106/71 O2 Sat by Pulse 97 89 Oximetry 01/06/20 01/06/20 01/06/20 03:00 03:30 04:00 Temperature 100.0 F H Pulse Rate 77 77 89 Pulse Rate [ From Monitor] Respiratory 19 15 15 Rate Blood Pressure 113/70 107/71 107/80 O2 Sat by Pulse 96 99 100 Oximetry 01/06/20 01/06/20 01/06/20 04:21 04:30 04:31 Temperature Pulse Rate 91 H 91 H Pulse Rate [ 97 H From Monitor] Respiratory 18 19 Rate Blood Pressure 107/80 119/86 O2 Sat by Pulse 98 96 100 Oximetry 01/06/20 01/06/20 01/06/20 05:00 05:30 06:00 Temperature Pulse Rate 91 H 84 83 Pulse Rate [ From Monitor] Respiratory 16 23 20 Rate Blood Pressure 128/88 124/79 118/77 O2 Sat by Pulse 98 94 99 Oximetry 01/06/20 01/06/20 01/06/20 06:30 07:00 07:30 Temperature Pulse Rate 80 90 93 H Pulse Rate [ From Monitor] Respiratory 21 17 22 Rate Blood Pressure 116/72 117/78 115/84 O2 Sat by Pulse 98 98 95 Oximetry 01/06/20 01/06/20 01/06/20 08:00 08:30 09:01 Temperature 98.1 F Pulse Rate 92 H 90 91 H Pulse Rate [ From Monitor] Respiratory 14 21 15 Rate Blood Pressure 121/80 125/87 125/87 O2 Sat by Pulse 99 99 99 Oximetry 01/06/20 01/06/20 01/06/20 09:30 09:40 10:00 Temperature Pulse Rate 95 H 90 87 Pulse Rate [ From Monitor] Respiratory 13 19 Rate Blood Pressure 164/98 164/98 116/81 O2 Sat by Pulse 100 100 98 Oximetry 01/06/20 01/06/20 01/06/20 10:30 11:00 11:30 Temperature Pulse Rate 79 87 85 Pulse Rate [ From Monitor] Respiratory 23 16 11 L Rate Blood Pressure 112/71 111/77 136/77 O2 Sat by Pulse 98 100 100 Oximetry 01/06/20 01/06/20 01/06/20 12:00 12:30 12:55 Temperature 98 F Pulse Rate 84 84 82 Pulse Rate [ From Monitor] Respiratory 21 18 Rate Blood Pressure 114/75 112/80 174/75 O2 Sat by Pulse 98 99 100 Oximetry - General physical appearance Narrative Exam: Gen: Awake and alert. NAD ENT: trach in place. site c/d/i CV: S1, S2+ Resp: on vent Abd: soft, ND. Mild discomfort at PEG site. PEG site c/d/i with bumper at 4cm. Remainder of abdomen nontender - Labs 01/06/20 04:44 01/06/20 04:44 Diabetes panel 01/05/20 01/06/20 Range/Units 16:04 04:44 Sodium 151 H 151 H (137-145) mmol/L Potassium 3.2 L 3.4 L (3.6-5.0) mmol/L Chloride 105.8 105.8 (98-107) mmol/L Carbon Dioxide 34 H 33 H (22-30) mmol/L BUN 12 13 (9-20) mg/dL Creatinine 0.6 L 0.6 L (0.8-1.3) mg/dL Glucose 97 118 H (75-100) mg/dL Calcium 9.5 9.5 (8.4-10.2) mg/dL AST 18 (5-40) units/L ALT 45 (7-56) units/L Alkaline Phosphatase 59 (35-129) units/L Total Protein 6.2 L (6.3-8.2) g/dL Albumin 2.6 L (3.9-5) g/dL Calcium panel 01/05/20 01/06/20 Range/Units 16:04 04:44 Calcium 9.5 9.5 (8.4-10.2) mg/dL Albumin 2.6 L (3.9-5) g/dL Pituitary panel 01/05/20 01/06/20 Range/Units 16:04 04:44 Sodium 151 H 151 H (137-145) mmol/L Potassium 3.2 L 3.4 L (3.6-5.0) mmol/L Chloride 105.8 105.8 (98-107) mmol/L Carbon Dioxide 34 H 33 H (22-30) mmol/L BUN 12 13 (9-20) mg/dL Creatinine 0.6 L 0.6 L (0.8-1.3) mg/dL Glucose 97 118 H (75-100) mg/dL Calcium 9.5 9.5 (8.4-10.2) mg/dL Adrenal panel 01/05/20 01/06/20 Range/Units 16:04 04:44 Sodium 151 H 151 H (137-145) mmol/L Potassium 3.2 L 3.4 L (3.6-5.0) mmol/L Chloride 105.8 105.8 (98-107) mmol/L Carbon Dioxide 34 H 33 H (22-30) mmol/L BUN 12 13 (9-20) mg/dL Creatinine 0.6 L 0.6 L (0.8-1.3) mg/dL Glucose 97 118 H (75-100) mg/dL Calcium 9.5 9.5 (8.4-10.2) mg/dL Total Bilirubin 0.60 (0.1-1.2) mg/dL AST 18 (5-40) units/L ALT 45 (7-56) units/L Alkaline Phosphatase 59 (35-129) units/L Total Protein 6.2 L (6.3-8.2) g/dL Albumin 2.6 L (3.9-5) g/dL
--- NOTE | 2020-01-06 13:53 | Progress Note ---
Assessment and Plan -Partial SBO -Acute LLL PE -Acute RLE DVT -Persistent fevers; secondary to sepsis and acute PE/DVT -Severe sepsis; secondary to bilateral pneumonia, persistent fevers -Acute hypoxemic respiratory failure, on vent unable to wean -Bilateral pneumonia, community acquired, -Aspiration Pneumonia -Sustained SVT, on amiodarone -Acute on chronic systolic congestive heart failure -History of cerebrovascular accident. -Tobacco use disorder -Alcohol abuse with DT -Acute chronic obstructive pulmonary disease exacerbation. -Hypertension and hypertensive urgency at presentation. -History of arthritis. -Paroxysmal atrial fibrillation -Leukocytosis with possible sepsis. -Lactic acidosis. -Bleeding from ET tube -Oropharyngeal dysphagia -S/P Knee surgery -History of peptic Ulcer Surgery -DVT prophylaxis COVID-19 test; 11/24/2019; negative 11/26/2019; negative Plan Continue ventilatory support - Now s/p trach and PEG Aspiration precautions Continue to adjust amiodarone and metoprolol for suppression of paroxysmal atri al fibrillation. Continue anticoagulation Started back on vancomycin and zosyn BC 03/28 - coag negative staph ?contaminant. Sputum cultures pending. Low-dose Lasix as needed DVT/GI prophy Heparin/Protonix Plan of care reviewed with the patient's nurse BS consulted for partial SBO Closely monitor the patient and adjust management as needed The high probability of a clinically significant, sudden or life threatening deterioration of the [Respiratory, cardiovascular & neurological] system(s) required my full and direct attention, intervention and personal management. The aggregate critical care time was [33] minutes without overlap. Time includes spent on [x] Data Review and interpretation [x] Patient assessment and monitoring of vital signs [x] Documentation [x] Medication orders and management Brief History Patient is a 64-year-old male with known history of hypertension, COPD, history of coronary artery disease, CHF with ejection fraction of 20 to 25% in August 2018 presenting to the emergency room via EMS complaining of shortness of breath. Patient was found to be hypoxic and in respiratory distress. Patient was placed on CPAP in route to the hospital. Oxygen saturation was said to be 88%. Started on Solu-Medrol, Lasix and magnesium in ED, patient was also found to be lethargic with an oxygen saturation of about 91% on CPAP. He was subsequently intubated. Work-up in the emergency room including chest x-ray reveals bilateral pneumonia. He had an elevated white count of 14 and also had an elevated BNP. Patient admitted to the ICU and placed on empiric IV antibiotics for pneumonia. He tested negative for COVID-19 and placed on isolation precautions. Remains intubated on ventilatory support, sputum cultures positive for Pseudomonas, ID treated with cefepime and Vanco. His hospital course became complicated with acute PE, DVT, paroxysmal atrial fib - placed on chronic anticoagulation. Patient was difficult to wean off, status post trach and PEG, remains on mechanical ventilation with trach tube. He now developed partial small bowel obstruction and not tolerating tube feeding. Placed on NG suction, general surgery following. 11/25: Leukocytosis improving. Continue current management anticipate extubation possible today. 11/26. Still intubated. Failed SBT yesterday. Repeat COVID-19 test is negative. 11/27. CT head ordered for possible neuro status change is negative. More responsive as the day progressed as per RN. Chest xray today shows interval improvement. He is still on antibiotics - will complete regimen today. 11/28: Considering difficult extubation and severe cardiomyopathy, will obtain cardiology consult. Aspiration precautions, tube feeds held, continue antibiotics. 11/29: Still with intermittent fever but improving imaging, continue diuresis. 11/30; Extremely agitated when placed on PSV- SVT, hypertension. Patiet acknowledged that he drinks. IV Ativan given, CIWA protocol initiated. 12 lead ordered showed SVT, one dose of amiodarone ordered. continue to follow up cardiology recommendation 12/01: Patient remains on mechanical ventilation, getting SBT trial. Remains in SVT, started on amiodarone drip by cardiology. 12/02; patient is on mechanical ventilation and on spontaneous breathing trial. Cardiology started the patient on PO amiodarone. Patient is on cefepime. 12/03: patient is on mechanical ventilation. Cardiology started the patient on PO amiodarone for SVT. Patient is on cefepime, no fever overnight. 12/04: Patient is sedated and on mechanical ventilation. Patient had fever yesterday afternoon 102.3, ID changed his cefepime to meropenem. Heart rate is controlled, cardiology is following. Patient has paroxysmal atrial fibrillation and on amiodarone and metoprolol, subcu heparin for anticoagulation and will need oral anticoagulation once stable. 12/05: Sputum cultures positive for Pseudomonas, ID following 12/06; patient is febrile T-max 24 hours 102 F ,ID change antibiotics to cefepime and Vancomycin 12/07: resumed care. Na 149 today, start on 1/2 NS. cont current care 12/08: remains in a stable sinus rhythm and stable blood pressure, continue supportive care. wean off vent as tolerated. persistent fever - ordered CTA chest 12/09: noted bloody discharges from ET tube last night. CTA and LE venous doppler positive for acute PE and DVT. resume heparin drip, consult vascular for possible EKOS/ IVC filter. monitor h/h. cont SBT trial, wean off vent as tolerated. called but no answer 12/10: cont heparin drip for acute PE and DVT, follow vascular recommendation. monitor h/h, wean off vent as tolerated 12/11: o/n had bleeding from ET tube, cont to monitor h/h. vascular recommending medical Mx. called ; Nicolle Araiza [phone]. 12/12: H&H remained stable, patient on heparin drip. Discussed with yesterday. Discussed with critical care attending. Patient not tolerating SBT trial. Continue to wean off from vent as tolerated, follow clinically. Tolerating tube feeding 12/13: Continue heparin drip, wean off from vent as tolerated. Discussed with pulmonary attending if no improvement by the end of 3 weeks of intubation patient may need trach and PEG. Continue to provide supportive care, follow CBC and BMP. 12/14: Stop cefepime today, wean off from vent as tolerated. cont Heparin infusion, while monitoring for bleeding 12/15: Patient is not tolerating SBT trial, becoming apnic on CPAP. May need to place on trach and PEG. Continue heparin drip, monitor off antibiotics 12/16. Still maintained on vent. May need PEG and trach as her has been failed SBTs 12/17. Had low UO overnight. Started on tamsulosin. May need PEG and trach - defer to pulm. . Plan for US thoracentesis to help with weaning. Remains on heparin drip for VTE. 12/20. Discussed with spouse today. He will get thoracentesis today. INR/PTT ordered. Heparin drip held. 12/21: planned for trach and PEG, cont supportive care, thoracentesis cancelled 12/22: cont supportive care, wean off from vent, daily SBT 12/23: tolerating SBT, possible extubation soon. cont supportive care 12/24: wean off vent as tolerated, daily SBT, follow clinically 12/25; cont to monitor, wean off vent as tolerated 12/26: Continue to monitor wean off vent as tolerated patient is tolerating SBT trial but not ready to wean off. 12/27: need trach and PEG, will f/u with GS, cont supportive care 12/28: pending trach/PEG 12/29: plan for trach and PEG on Saturday 12/30: Plan for trach and PEG. Temp 101F. Blood cultures, urinalysis and chest xray ordered. 12/31. Had afib with RVR overnight. Metoprolol dose has been increased. He is still on amiodarone. Plan for PEG tube placement today. Repeat chest x-ray shows worsening infiltrates. Started on the Lasix. Monitor fever now. Blood cultures negative so far. Urinalysis pending 01/01. Started on antibiotics as he had another fever. On vancomycin and zosyn. ID consulted. HR still in the 100s. Had trach and PEG placement on 12/31 with no complications. BC 03/28 - Coag negative staph? contaminant. 01/02. On antibiotics. ID consulted. HR still high. Cardiology adjusting HR control medications. 01/03. HR better. Heparin switched to DOAC. HR better. Started on bumex 01/04: c/o abdominal pain, not tolerating TF, had projectile vomiting few times. Abd xry/CT abd suggestive of partial SBO, reconsult surgery, place NG with suction, start iv fluid. 01/05; Pt stable. NGT output 650cc over 24 hours, bilious. No f/c, WBC within normal limits. cont NG suction and cont to hold TF Subjective Date of service: 01/06/20 Principal diagnosis: Ac hypoxemic resp failure; Pneumonia; PUI COVID-19; CHF; COPD; HTN Interval history: Patient seen and examined Patient intubated on trach Discussed with RN at the bedside H/H STABLE, patient TF on hold b/o Vomiting episode and SBO Objective - Exam Narrative Exam: General appearance: Present: well-nourished, opens eyes to names and follows minor command - EENT Eyes: Present: PERRL, EOM intact. Absent: scleral icterus ENT: clear oral mucosa, dentition normal - Neck Neck: Present: supple, normal ROM - Respiratory Respiratory effort: normal, mechanical ventilation with trach Respiratory: bilateral: rales - Cardiovascular Rhythm: regular Heart Sounds: Present: S1 & S2, tachycardic. Absent: gallop, systolic murmur, diastolic murmur, rub - Extremities Extremities: no ischemia, pulses intact, pulses symmetrical, No edema, Full ROM Peripheral Pulses: within normal limits - Abdominal General gastrointestinal: Present: soft, + tender, distended, hypoactive bowel sounds. - Integumentary Integumentary: Present: clear, warm, dry. Absent: rash - Musculoskeletal Musculoskeletal: no joint swelling - Psychiatric Psychiatric: no agitation Neurology: no focal deficits - Constitutional Vitals: Vital Signs - 12hr 01/06/20 01/06/20 01/06/20 02:00 02:30 03:00 Temperature Pulse Rate 81 78 77 Pulse Rate [ From Monitor] Respiratory 22 19 19 Rate Blood Pressure 111/71 106/71 113/70 O2 Sat by Pulse 97 89 96 Oximetry 01/06/20 01/06/20 01/06/20 03:30 04:00 04:21 Temperature 100.0 F H Pulse Rate 77 89 91 H Pulse Rate [ From Monitor] Respiratory 15 15 Rate Blood Pressure 107/71 107/80 107/80 O2 Sat by Pulse 99 100 98 Oximetry 01/06/20 01/06/20 01/06/20 04:30 04:31 05:00 Temperature Pulse Rate 91 H 91 H Pulse Rate [ 97 H From Monitor] Respiratory 18 19 16 Rate Blood Pressure 119/86 128/88 O2 Sat by Pulse 96 100 98 Oximetry 01/06/20 01/06/20 01/06/20 05:30 06:00 06:30 Temperature Pulse Rate 84 83 80 Pulse Rate [ From Monitor] Respiratory 23 20 21 Rate Blood Pressure 124/79 118/77 116/72 O2 Sat by Pulse 94 99 98 Oximetry 01/06/20 01/06/20 01/06/20 07:00 07:30 08:00 Temperature 98.1 F Pulse Rate 90 93 H 92 H Pulse Rate [ From Monitor] Respiratory 17 22 14 Rate Blood Pressure 117/78 115/84 121/80 O2 Sat by Pulse 98 95 99 Oximetry 01/06/20 01/06/20 01/06/20 08:30 09:01 09:30 Temperature Pulse Rate 90 91 H 95 H Pulse Rate [ From Monitor] Respiratory 21 15 13 Rate Blood Pressure 125/87 125/87 164/98 O2 Sat by Pulse 99 99 100 Oximetry 01/06/20 01/06/20 01/06/20 09:40 10:00 10:30 Temperature Pulse Rate 90 87 79 Pulse Rate [ From Monitor] Respiratory 19 23 Rate Blood Pressure 164/98 116/81 112/71 O2 Sat by Pulse 100 98 98 Oximetry 01/06/20 01/06/20 01/06/20 11:00 11:30 12:00 Temperature 98 F Pulse Rate 87 85 84 Pulse Rate [ From Monitor] Respiratory 16 11 L 21 Rate Blood Pressure 111/77 136/77 114/75 O2 Sat by Pulse 100 100 98 Oximetry 01/06/20 01/06/20 12:30 12:55 Temperature Pulse Rate 84 82 Pulse Rate [ From Monitor] Respiratory 18 Rate Blood Pressure 112/80 174/75 O2 Sat by Pulse 99 100 Oximetry - Labs CBC & Chem 7: 01/07/20 04:10 01/07/20 04:10 Labs: Abnormal lab results 01/05/20 01/06/20 01/06/20 Range/Units 16:04 00:23 04:44 RBC 3.36 L (3.65-5.03) M/mm3 Hgb 8.9 L (11.8-15.2) gm/dl Hct 28.7 L (35.5-45.6) % MCH 26 L (28-32) pg MCHC 31 L (32-34) % RDW 16.9 H (13.2-15.2) % [place] % (Auto) 9.4 H (0.0-7.3) % Sodium 151 H (137-145) mmol/L Potassium 3.2 L (3.6-5.0) mmol/L Carbon Dioxide 34 H (22-30) mmol/L Creatinine 0.6 L (0.8-1.3) mg/dL Glucose (75-100) mg/dL POC Glucose 107 H (70-105) Total Protein (6.3-8.2) g/dL Albumin (3.9-5) g/dL 01/06/20 01/06/20 01/06/20 Range/Units 04:44 05:33 12:04 RBC (3.65-5.03) M/mm3 Hgb (11.8-15.2) gm/dl Hct (35.5-45.6) % MCH (28-32) pg MCHC (32-34) % RDW (13.2-15.2) % [place] % (Auto) (0.0-7.3) % Sodium 151 H (137-145) mmol/L Potassium 3.4 L (3.6-5.0) mmol/L Carbon Dioxide 33 H (22-30) mmol/L Creatinine 0.6 L (0.8-1.3) mg/dL Glucose 118 H (75-100) mg/dL POC Glucose 118 H 123 H (70-105) Total Protein 6.2 L (6.3-8.2) g/dL Albumin 2.6 L (3.9-5) g/dL HEART Score - HEART Score Troponin: Troponin T < 0.010 ng/mL (0.00-0.029) 11/24/19 02:53
[2020-01-06] MEDS: POTASSIUM CHLORIDE 10 MEQ 10 MEQ/100 ML BAG IV SCH ×2 (14:55→17:02)
[2020-01-06] MEDS ORDERED: SCOPOLAMINE TRANSDERMAL PATCH 72 HR TD SCH (15:00)
[2020-01-06] MEDS: MORPHINE 2 MG/1 ML INJ IV PRN (18:01)
[2020-01-06] MEDS: POLYETHYLENE GLYCOL 3350 17 GM POWDER PO SCH (21:24)
[2020-01-06] MEDS: TAMSULOSIN 0.4 MG CAP PO SCH (21:24)
[2020-01-07] MEDS: METOPROLOL TARTRATE 25 MG TAB FEEDTUBE SCH ×4 (00:17→17:21)
[2020-01-07 05:40] LABS: Basophils # (Auto) 0.1 K/mm3 (0.0-0.1); Basophils % (Auto) 0.6 % (0.0-1.8); Eosinophils # (Auto) 0.3 K/mm3 (0.0-0.4); Eosinophils % (Auto) 3.5 % (0.0-4.3); Hemoglobin 8.9 gm/dl (11.8-15.2); Lymphocytes # (Auto) 1.5 K/mm3 (1.2-5.4); Lymphocytes % (Auto) 19.1 % (13.4-35.0); Mean Corpuscular HGB Conc 31 % (32-34); Mean Corpuscular Volume 85 fl (84-94); Monocytes # (Auto) 0.7 K/mm3 (0.0-0.8); Monocytes % (Auto) 8.4 % (0.0-7.3); Platelet Count 232 K/mm3 (140-440); Red Blood Count 3.42 M/mm3 (3.65-5.03); Red Cell Distribution Width 17.1 % (13.2-15.2)
[2020-01-07] MEDS: D5W/0.45% NACL 1,000 ML IV SCH (05:57)
[2020-01-07 06:02] LABS: Alanine Aminotransferase 31 units/L (7-56); Albumin 2.4 g/dL (3.9-5); Blood Urea Nitrogen 13 mg/dL (9-20); Calcium 9.3 mg/dL (8.4-10.2); Hemolysis Index 0
[2020-01-07 06:03] LABS: BUN/Creatinine Ratio 22
--- NOTE | 2020-01-07 07:58 | Progress Note ---
Assessment and Plan Atrial fibrillation, paroxysmal on amiodarone and metoprolol Ischemic Cardiomyopathy, resolving re-echo this presentation reports an LVEF 40-45%. echo 08/2018: decreased LVEF 20-25%. Hx of CAD [facility] 12/2018: mild in-stent restenosis. No significant residual disease. Multifocal pneumonia negative COVID-19 test x 2 Respiratory failure Acute PE/DVT Anemia Partial SBO vs ileus Recommendations: Continue amiodarone and metoprolol for paroxysmal atrial fibrillation. Otherwise, conservative cardiac management. Subjective Date of service: 01/07/20 Principal diagnosis: Ac hypoxemic resp failure; Pneumonia; PUI COVID-19; CHF; COPD; HTN Interval history: Stable sinus rhythm on telemetry. Objective Vital Signs Temp Pulse Pulse Resp BP Pulse Ox Pulse Ox 01/07/20 07:39 100 01/07/20 07:23 84 6 L 136/91 100 01/07/20 06:30 76 18 112/73 96 01/07/20 06:00 81 20 107/76 98 01/07/20 05:30 79 20 111/70 98 01/07/20 05:00 98.8 F 82 17 111/71 98 01/07/20 04:30 81 14 103/67 100 01/07/20 04:06 75 95/56 99 01/07/20 04:00 98.8 F 73 74 26 H 95/56 100 01/07/20 03:30 74 19 99/59 98 01/07/20 03:00 80 19 114/65 97 01/07/20 02:30 84 20 130/81 95 01/07/20 02:01 87 21 104/67 01/07/20 01:30 71 22 104/67 96 01/07/20 01:00 72 25 H 111/64 95 01/07/20 00:30 72 19 106/67 93 01/07/20 00:12 71 111/62 97 01/07/20 00:00 99.0 F 72 82 21 111/62 96 01/06/20 23:30 74 18 102/68 98 01/06/20 23:00 74 22 106/66 99 01/06/20 22:30 75 19 102/65 99 01/06/20 22:00 79 22 115/70 97 01/06/20 21:30 80 18 114/76 100 01/06/20 21:00 76 21 104/66 97 01/06/20 20:41 78 21 113/74 99 01/06/20 20:30 83 12 113/74 100 01/06/20 20:00 98.9 F 85 82 12 119/79 93 01/06/20 19:36 100 01/06/20 19:31 83 12 132/87 100 01/06/20 19:26 85 16 111/86 100 01/06/20 19:00 80 20 111/86 93 01/06/20 18:30 86 12 117/80 97 01/06/20 18:01 88 16 117/77 95 01/06/20 17:30 87 13 129/81 100 01/06/20 17:00 88 11 L 117/97 100 01/06/20 16:30 88 16 110/77 100 01/06/20 16:04 90 17 113/81 100 01/06/20 16:00 99.4 F 91 H 91 H 16 113/81 100 01/06/20 15:30 86 15 113/72 100 01/06/20 15:00 88 12 116/84 98 01/06/20 14:30 89 12 115/81 100 01/06/20 14:00 88 11 L 111/76 100 01/06/20 13:30 87 22 120/84 99 01/06/20 13:00 87 19 120/82 99 01/06/20 12:55 82 19 174/75 100 01/06/20 12:30 84 18 112/80 99 01/06/20 12:00 98 F 84 84 21 114/75 98 01/06/20 11:30 85 11 L 136/77 100 01/06/20 11:00 87 16 111/77 100 01/06/20 10:30 79 23 112/71 98 01/06/20 10:00 87 19 116/81 98 01/06/20 09:40 90 19 164/98 100 01/06/20 09:30 95 H 13 164/98 100 01/06/20 09:01 91 H 15 125/87 99 01/06/20 08:30 90 21 125/87 99 01/06/20 08:00 98.1 F 92 H 92 H 14 121/80 99 - Physical Examination General: Other (vent to trach) Cardiac: Positive: Reg Rate and Rhythm - Labs and Meds Cardiac Enzymes 01/07/20 Range/Units 04:10 AST 11 (5-40) units/L CBC 01/07/20 Range/Units 04:10 WBC 8.1 (4.5-11.0) K/mm3 RBC 3.42 L (3.65-5.03) M/mm3 Hgb 8.9 L (11.8-15.2) gm/dl Hct 29.0 L (35.5-45.6) % Plt Count 232 (140-440) K/mm3 Lymph # (Auto) 1.5 (1.2-5.4) K/mm3 [place] # (Auto) 0.7 (0.0-0.8) K/mm3 Eos # (Auto) 0.3 (0.0-0.4) K/mm3 Baso # (Auto) 0.1 (0.0-0.1) K/mm3 Comprehensive Metabolic Panel 01/07/20 Range/Units 04:10 Sodium 153 H (137-145) mmol/L Potassium 3.5 L (3.6-5.0) mmol/L Chloride 106.9 (98-107) mmol/L Carbon Dioxide 34 H (22-30) mmol/L BUN 13 (9-20) mg/dL Creatinine 0.6 L (0.8-1.3) mg/dL Glucose 121 H (75-100) mg/dL Calcium 9.3 (8.4-10.2) mg/dL AST 11 (5-40) units/L ALT 31 (7-56) units/L Alkaline Phosphatase 53 (35-129) units/L Total Protein 5.9 L (6.3-8.2) g/dL Albumin 2.4 L (3.9-5) g/dL - Allied health notes Allied health notes reviewed: nursing
[2020-01-07] MEDS: POTASSIUM CHLORIDE 10 MEQ 10 MEQ/100 ML BAG IV SCH ×5 (09:17→14:20)
[2020-01-07] MEDS: DOCUSATE SODIUM 100 MG/10 ML ORAL LIQD FEEDTUBE SCH ×3 (09:18→21:16)
[2020-01-07] MEDS: AMIODARONE 200 MG TAB PO SCH ×3 (09:18→21:16)
[2020-01-07] MEDS: FAMOTIDINE 20 MG/2 ML INJ IV SCH ×2 (09:18→21:09)
[2020-01-07] MEDS: DEXTROSE 5% IN WATER 1,000 ML IV SCH ×2 (09:18→22:00)
[2020-01-07] MEDS: QUEtiapine 200 MG TAB PO SCH ×2 (09:18→21:07)
[2020-01-07] MEDS: ENOXAPARIN 120 MG/0.8 ML INJ SUB-Q SCH ×2 (10:08→21:09)
[2020-01-07] MEDS: MORPHINE 2 MG/1 ML INJ IV PRN ×2 (10:09→18:37)
--- NOTE | 2020-01-07 10:20 | Progress Note ---
Assessment and Plan Acute hypoxemic respiratory failure s/p trach on MVS Bilateral pneumonia, community acquired. Acute congestive heart failure exacerbation. History of cerebrovascular accident. Acute chronic obstructive pulmonary disease exacerbation. Hypertension and hypertensive urgency at presentation. History of arthritis. Oropharyngeal dysphagia Right Lext DVT Pulmonary embolism Trach care, airway clearance, secretion management ATP trials today as tolerated and per protocol Continue NGT to LIS, PEG to gravity Continue therapeutic Lovenox, while NPO Strict NPO, bowel rest with serial abdominal exams Continue D5 1/2Nsaline at 75ml/hour while NPO, monitor hypernatremia General surgery notes reviewed and appreciate BMPdaily for 3 days Monitor closely CXR, ABG as clinically indicated Continue Precedex for agitation management Continue accuchecks with glycemic control per SSI for target blood glucose goal of 140-180 mg/dL while critically ill; Avoid hypoglycemia - continue to monitor renal function, hemodynamics and electrolyte profile - continue to wean oxygen for O2 sats > 90% - continue bronchodilators with pulmonary hygiene per RT - VAP bundle addressed (Aspiration precautions, HOB >40) - continue to wean per pulmonary driven protocols - continue prn analgesia per CPOT score - follow clinically re: fever curves / trend WBC - Avoid delirium (no benzodiazepines if they can be avoided) - continue stress ulcer prophylaxis with Famotidine BID - continue mobility protocols for pressure ulcer prophylaxis - continue fall precautions - Supportive transfusions as indicated to keep HgB>7g/dL - Continue to monitor neurologic function - Continue chronic home medications as clinically indicated - Continue all supportive care CONDITION: CRITICAL PROGNOSIS: GUARDED CODE STATUS: FULL CODE The high probability of a clinically significant, sudden or life threatening deterioration of the [Respiratory, cardiovascular & neurological] system(s) required my full and direct attention, intervention and personal management. The aggregate critical care time was [33] minutes without overlap. Time includes spent on [x] Data Review and interpretation [x] Patient assessment and monitoring of vital signs [x] Documentation [x] Medication orders and management Subjective Date of service: 01/07/20 Principal diagnosis: Ac hypoxemic resp failure; Pneumonia; PUI COVID-19; CHF; COPD; HTN Interval history: Patient is seen today for: Acute hypoxemic respiratory failure; Adan. Pneumonia (CAP); PUI COVID-19 infection; AE-CHF; AE-COPD; H/O CVA; HTN; PE, DVT Seen and examined at bedside; 24 hour events reviewed; nursing and respiratory care staff consulted; no adverse overnight events reported to me; resting peacefully in bed;s/p trach No asynchrony, Tube feedings on hold, NGT to LIS and PEG to gravity. Tolerating PSV trials today, remains NPO. No fevers. Objective Vital Signs - 12hr 01/06/20 01/06/20 01/06/20 22:30 23:00 23:30 Temperature Pulse Rate 75 74 74 Pulse Rate [ From Monitor] Respiratory 19 22 18 Rate Blood Pressure 102/65 106/66 102/68 O2 Sat by Pulse 99 99 98 Oximetry O2 Sat by Pulse Oximetry [ Assessment] 01/07/20 01/07/20 01/07/20 00:00 00:12 00:30 Temperature 99.0 F Pulse Rate 72 71 72 Pulse Rate [ 82 From Monitor] Respiratory 21 19 Rate Blood Pressure 111/62 111/62 106/67 O2 Sat by Pulse 96 97 93 Oximetry O2 Sat by Pulse Oximetry [ Assessment] 01/07/20 01/07/20 01/07/20 01:00 01:30 02:01 Temperature Pulse Rate 72 71 87 Pulse Rate [ From Monitor] Respiratory 25 H 22 21 Rate Blood Pressure 111/64 104/67 104/67 O2 Sat by Pulse 95 96 Oximetry O2 Sat by Pulse Oximetry [ Assessment] 01/07/20 01/07/20 01/07/20 02:30 03:00 03:30 Temperature Pulse Rate 84 80 74 Pulse Rate [ From Monitor] Respiratory 20 19 19 Rate Blood Pressure 130/81 114/65 99/59 O2 Sat by Pulse 95 97 98 Oximetry O2 Sat by Pulse Oximetry [ Assessment] 01/07/20 01/07/20 01/07/20 04:00 04:06 04:30 Temperature 98.8 F Pulse Rate 73 75 81 Pulse Rate [ 74 From Monitor] Respiratory 26 H 14 Rate Blood Pressure 95/56 95/56 103/67 O2 Sat by Pulse 100 99 100 Oximetry O2 Sat by Pulse Oximetry [ Assessment] 01/07/20 01/07/20 01/07/20 05:00 05:30 06:00 Temperature 98.8 F Pulse Rate 82 79 81 Pulse Rate [ From Monitor] Respiratory 17 20 20 Rate Blood Pressure 111/71 111/70 107/76 O2 Sat by Pulse 98 98 98 Oximetry O2 Sat by Pulse Oximetry [ Assessment] 01/07/20 01/07/20 01/07/20 06:30 07:23 07:39 Temperature Pulse Rate 76 84 Pulse Rate [ From Monitor] Respiratory 18 6 L Rate Blood Pressure 112/73 136/91 O2 Sat by Pulse 96 100 Oximetry O2 Sat by Pulse 100 Oximetry [ Assessment] 01/07/20 08:11 Temperature Pulse Rate 83 Pulse Rate [ From Monitor] Respiratory 11 L Rate Blood Pressure 133/82 O2 Sat by Pulse 100 Oximetry O2 Sat by Pulse Oximetry [ Assessment] Constitutional: no acute distress, alert, other (elelderly and obese male, normocephalic with mildly increased respiratory effort at rest on MVS) Eyes: non-icteric ENT: oropharynx moist, other (trach to MVS) Neck: supple, no JVD Effort: mildly labored Ascultation: Bilateral: clear, diminished breath sounds (bases R>L), rhonchi, other (mild to moderate secretions) Percussion: Bilateral: not dull Cardiovascular: irregular rhythm, other (S1,S2) Gastrointestinal: hypoactive bowel sounds, soft, non-tender, other (distended) Integumentary: normal Extremities: no cyanosis, pulses normal, no ischemia or petechiae, edema (bilateral upper ) Neurologic: normal mental status, non-focal exam (moves all extremities with extreme agitation), pupils equal and round Psychiatric: mood appropriate, affect normal CBC and BMP: 01/09/20 04:11 01/09/20 04:11 ABG, PT/INR, D-dimer: ABG ABG pH 7.415 pH Units (7.350-7.450) 01/03/20 18:30 POC ABG pCO2 52.9 mmHg (32.0-48.0) H 12/22/19 03:22 ABG pCO2 57.6 mm Hg 01/03/20 18:30 POC ABG pO2 52.3 mmHg (83-108) L 12/22/19 03:22 ABG pO2 70.7 mm Hg (80.0-90.0) L 01/03/20 18:30 POC ABG HCO3 33.4 12/22/19 03:22 ABG O2 Saturation 94.4 % (95.0-99.0) L 01/03/20 18:30 PT/INR, D-dimer PT 13.8 Sec. (12.2-14.9) 12/21/19 10:13 INR 1.05 (0.87-1.13) 12/21/19 10:13 Abnormal lab findings: Abnormal Labs 11/24/19 11/24/19 11/24/19 02:53 02:53 03:45 WBC 14.3 H RBC Hgb Hct MCHC RDW 17.2 H MCH Lymph % (Auto) Clinch % (Auto) Clinch # Eos # Lymph # (Auto) Clinch # (Auto) Eos # (Auto) Seg Neutrophils % Seg Neuts % (Manual) Baso # (Auto) Lymphocytes % (Manual) Monocytes % (Manual) Eosinophils % (Manual) Basophils % (Manual) Seg Neutrophils # Seg Neutrophils # Man 8.3 H Lymphocytes # (Manual) Monocytes # (Manual) 0.9 H Eosinophils # (Manual) Nucleated RBC % Basophils # (Manual) APTT Heparin Anti-Xa Level ABG pH 7.313 L POC ABG pO2 ABG pO2 102.8 H ABG HCO3 ABG O2 Saturation ABG Base Excess -2.9 L POC ABG pCO2 ABG Hemoglobin ABG Oxyhemoglobin Oxyhemoglobin 93.9 L Sodium Potassium Chloride Carbon Dioxide BUN Creatinine Glucose 195 H POC Glucose Lactic Acid Calcium Phosphorus Magnesium AST ALT Lactate Dehydrogenase CK-MB (CK-2) 4.3 H C-Reactive Protein NT-Pro-B Natriuret Pep 1181 H Total Protein Albumin Urine WBC (Auto) 11/24/19 11/24/19 11/24/19 04:53 04:53 10:37 WBC RBC Hgb Hct MCHC RDW MCH Lymph % (Auto) Clinch % (Auto) Clinch # Eos # Lymph # (Auto) Clinch # (Auto) Eos # (Auto) Seg Neutrophils % Seg Neuts % (Manual) Baso # (Auto) Lymphocytes % (Manual) Monocytes % (Manual) Eosinophils % (Manual) Basophils % (Manual) Seg Neutrophils # Seg Neutrophils # Man Lymphocytes # (Manual) Monocytes # (Manual) Eosinophils # (Manual) Nucleated RBC % Basophils # (Manual) APTT Heparin Anti-Xa Level ABG pH POC ABG pO2 ABG pO2 ABG HCO3 ABG O2 Saturation ABG Base Excess POC ABG pCO2 ABG Hemoglobin ABG Oxyhemoglobin Oxyhemoglobin Sodium Potassium Chloride Carbon Dioxide BUN Creatinine Glucose 162 H POC Glucose Lactic Acid 2.40 H* 2.50 H* Calcium Phosphorus Magnesium AST ALT Lactate Dehydrogenase 240 H CK-MB (CK-2) C-Reactive Protein NT-Pro-B Natriuret Pep Total Protein Albumin Urine WBC (Auto) 11/24/19 11/24/19 11/24/19 12:21 14:50 19:54 WBC RBC Hgb Hct MCHC RDW MCH Lymph % (Auto) Clinch % (Auto) Clinch # Eos # Lymph # (Auto) Clinch # (Auto) Eos # (Auto) Seg Neutrophils % Seg Neuts % (Manual) Baso # (Auto) Lymphocytes % (Manual) Monocytes % (Manual) Eosinophils % (Manual) Basophils % (Manual) Seg Neutrophils # Seg Neutrophils # Man Lymphocytes # (Manual) Monocytes # (Manual) Eosinophils # (Manual) Nucleated RBC % Basophils # (Manual) APTT Heparin Anti-Xa Level ABG pH POC ABG pO2 ABG pO2 ABG HCO3 ABG O2 Saturation ABG Base Excess POC ABG pCO2 ABG Hemoglobin ABG Oxyhemoglobin Oxyhemoglobin Sodium Potassium Chloride Carbon Dioxide BUN Creatinine Glucose POC Glucose 145 H 143 H 124 H Lactic Acid Calcium Phosphorus Magnesium AST ALT Lactate Dehydrogenase CK-MB (CK-2) C-Reactive Protein NT-Pro-B Natriuret Pep Total Protein Albumin Urine WBC (Auto) 11/25/19 11/25/19 11/25/19 00:18 03:18 05:11 WBC 13.7 H RBC Hgb Hct MCHC RDW 17.1 H MCH Lymph % (Auto) 10.8 L Clinch % (Auto) 8.7 H Clinch # 1.2 H Eos # Lymph # (Auto) Clinch # (Auto) Eos # (Auto) Seg Neutrophils % 80.2 H Seg Neuts % (Manual) Baso # (Auto) Lymphocytes % (Manual) Monocytes % (Manual) Eosinophils % (Manual) Basophils % (Manual) Seg Neutrophils # 11.0 H Seg Neutrophils # Man Lymphocytes # (Manual) Monocytes # (Manual) Eosinophils # (Manual) Nucleated RBC % Basophils # (Manual) APTT Heparin Anti-Xa Level ABG pH 7.333 L POC ABG pO2 ABG pO2 61.2 L ABG HCO3 ABG O2 Saturation 90.2 L ABG Base Excess POC ABG pCO2 ABG Hemoglobin 13.7 L ABG Oxyhemoglobin Oxyhemoglobin 88.2 L Sodium Potassium Chloride Carbon Dioxide BUN Creatinine Glucose POC Glucose 109 H Lactic Acid Calcium Phosphorus Magnesium AST ALT Lactate Dehydrogenase CK-MB (CK-2) C-Reactive Protein NT-Pro-B Natriuret Pep Total Protein Albumin Urine WBC (Auto) 11/25/19 11/25/19 11/26/19 05:11 11:40 03:12 WBC RBC Hgb Hct MCHC RDW MCH Lymph % (Auto) Clinch % (Auto) Clinch # Eos # Lymph # (Auto) Clinch # (Auto) Eos # (Auto) Seg Neutrophils % Seg Neuts % (Manual) Baso # (Auto) Lymphocytes % (Manual) Monocytes % (Manual) Eosinophils % (Manual) Basophils % (Manual) Seg Neutrophils # Seg Neutrophils # Man Lymphocytes # (Manual) Monocytes # (Manual) Eosinophils # (Manual) Nucleated RBC % Basophils # (Manual) APTT Heparin Anti-Xa Level ABG pH POC ABG pO2 ABG pO2 155.1 H ABG HCO3 27.8 H ABG O2 Saturation ABG Base Excess POC ABG pCO2 ABG Hemoglobin 12.2 L ABG Oxyhemoglobin Oxyhemoglobin Sodium Potassium Chloride Carbon Dioxide BUN 23 H Creatinine Glucose 110 H POC Glucose 108 H Lactic Acid Calcium Phosphorus Magnesium AST ALT Lactate Dehydrogenase CK-MB (CK-2) C-Reactive Protein NT-Pro-B Natriuret Pep Total Protein Albumin Urine WBC (Auto) 11/26/19 11/26/19 11/26/19 06:17 10:43 10:43 WBC 11.4 H RBC Hgb Hct MCHC RDW 17.1 H MCH Lymph % (Auto) Clinch % (Auto) Clinch # Eos # Lymph # (Auto) Clinch # (Auto) Eos # (Auto) Seg Neutrophils % Seg Neuts % (Manual) Baso # (Auto) Lymphocytes % (Manual) Monocytes % (Manual) Eosinophils % (Manual) Basophils % (Manual) Seg Neutrophils # Seg Neutrophils # Man Lymphocytes # (Manual) Monocytes # (Manual) Eosinophils # (Manual) Nucleated RBC % Basophils # (Manual) APTT Heparin Anti-Xa Level ABG pH POC ABG pO2 ABG pO2 ABG HCO3 ABG O2 Saturation ABG Base Excess POC ABG pCO2 ABG Hemoglobin ABG Oxyhemoglobin Oxyhemoglobin Sodium Potassium Chloride Carbon Dioxide BUN 29 H Creatinine Glucose POC Glucose 107 H Lactic Acid Calcium Phosphorus Magnesium AST ALT Lactate Dehydrogenase CK-MB (CK-2) C-Reactive Protein NT-Pro-B Natriuret Pep Total Protein Albumin Urine WBC (Auto) 11/26/19 11/27/19 11/27/19 17:11 01:53 04:11 WBC RBC Hgb Hct MCHC RDW MCH Lymph % (Auto) Clinch % (Auto) Clinch # Eos # Lymph # (Auto) Clinch # (Auto) Eos # (Auto) Seg Neutrophils % Seg Neuts % (Manual) Baso # (Auto) Lymphocytes % (Manual) Monocytes % (Manual) Eosinophils % (Manual) Basophils % (Manual) Seg Neutrophils # Seg Neutrophils # Man Lymphocytes # (Manual) Monocytes # (Manual) Eosinophils # (Manual) Nucleated RBC % Basophils # (Manual) APTT Heparin Anti-Xa Level ABG pH POC ABG pO2 ABG pO2 ABG HCO3 29.2 H ABG O2 Saturation ABG Base Excess 3.4 H POC ABG pCO2 ABG Hemoglobin 13.3 L ABG Oxyhemoglobin Oxyhemoglobin 94.5 L Sodium Potassium Chloride Carbon Dioxide BUN Creatinine Glucose POC Glucose 113 H 108 H Lactic Acid Calcium Phosphorus Magnesium AST ALT Lactate Dehydrogenase CK-MB (CK-2) C-Reactive Protein NT-Pro-B Natriuret Pep Total Protein Albumin Urine WBC (Auto) 11/27/19 11/28/19 11/28/19 05:27 05:00 05:25 WBC RBC Hgb Hct MCHC RDW MCH Lymph % (Auto) Clinch % (Auto) Clinch # Eos # Lymph # (Auto) Clinch # (Auto) Eos # (Auto) Seg Neutrophils % Seg Neuts % (Manual) Baso # (Auto) Lymphocytes % (Manual) Monocytes % (Manual) Eosinophils % (Manual) Basophils % (Manual) Seg Neutrophils # Seg Neutrophils # Man Lymphocytes # (Manual) Monocytes # (Manual) Eosinophils # (Manual) Nucleated RBC % Basophils # (Manual) APTT Heparin Anti-Xa Level ABG pH POC ABG pO2 68.1 L ABG pO2 ABG HCO3 ABG O2 Saturation ABG Base Excess POC ABG pCO2 ABG Hemoglobin ABG Oxyhemoglobin 91.2 L Oxyhemoglobin Sodium Potassium Chloride Carbon Dioxide BUN Creatinine Glucose POC Glucose 111 H 110 H Lactic Acid Calcium Phosphorus Magnesium AST ALT Lactate Dehydrogenase CK-MB (CK-2) C-Reactive Protein NT-Pro-B Natriuret Pep Total Protein Albumin Urine WBC (Auto) 11/28/19 11/28/19 11/28/19 12:08 13:47 13:47 WBC 11.3 H RBC Hgb Hct MCHC RDW 16.1 H MCH Lymph % (Auto) Clinch % (Auto) 9.9 H Clinch # 1.1 H Eos # Lymph # (Auto) Clinch # (Auto) Eos # (Auto) Seg Neutrophils % 71.4 H Seg Neuts % (Manual) Baso # (Auto) Lymphocytes % (Manual) Monocytes % (Manual) Eosinophils % (Manual) Basophils % (Manual) Seg Neutrophils # 8.1 H Seg Neutrophils # Man Lymphocytes # (Manual) Monocytes # (Manual) Eosinophils # (Manual) Nucleated RBC % Basophils # (Manual) APTT Heparin Anti-Xa Level ABG pH POC ABG pO2 ABG pO2 ABG HCO3 ABG O2 Saturation ABG Base Excess POC ABG pCO2 ABG Hemoglobin ABG Oxyhemoglobin Oxyhemoglobin Sodium Potassium Chloride Carbon Dioxide BUN 23 H Creatinine Glucose 123 H POC Glucose 112 H Lactic Acid Calcium Phosphorus Magnesium AST ALT Lactate Dehydrogenase CK-MB (CK-2) C-Reactive Protein NT-Pro-B Natriuret Pep Total Protein Albumin 3.7 L Urine WBC (Auto) 11/28/19 11/29/19 11/29/19 17:26 03:55 17:04 WBC RBC Hgb Hct MCHC RDW MCH Lymph % (Auto) Clinch % (Auto) Clinch # Eos # Lymph # (Auto) Clinch # (Auto) Eos # (Auto) Seg Neutrophils % Seg Neuts % (Manual) Baso # (Auto) Lymphocytes % (Manual) Monocytes % (Manual) Eosinophils % (Manual) Basophils % (Manual) Seg Neutrophils # Seg Neutrophils # Man Lymphocytes # (Manual) Monocytes # (Manual) Eosinophils # (Manual) Nucleated RBC % Basophils # (Manual) APTT Heparin Anti-Xa Level ABG pH POC ABG pO2 ABG pO2 65.7 L ABG HCO3 28.3 H ABG O2 Saturation 93.9 L ABG Base Excess 3.6 H POC ABG pCO2 ABG Hemoglobin 13.3 L ABG Oxyhemoglobin Oxyhemoglobin 91.5 L Sodium Potassium Chloride Carbon Dioxide BUN Creatinine Glucose POC Glucose 123 H 119 H Lactic Acid Calcium Phosphorus Magnesium AST ALT Lactate Dehydrogenase CK-MB (CK-2) C-Reactive Protein NT-Pro-B Natriuret Pep Total Protein Albumin Urine WBC (Auto) 11/30/19 11/30/19 11/30/19 04:17 04:17 04:56 WBC 13.4 H RBC Hgb Hct MCHC RDW 15.6 H MCH Lymph % (Auto) Clinch % (Auto) Clinch # Eos # Lymph # (Auto) Clinch # (Auto) Eos # (Auto) Seg Neutrophils % Seg Neuts % (Manual) Baso # (Auto) Lymphocytes % (Manual) Monocytes % (Manual) Eosinophils % (Manual) Basophils % (Manual) Seg Neutrophils # Seg Neutrophils # Man Lymphocytes # (Manual) Monocytes # (Manual) Eosinophils # (Manual) Nucleated RBC % Basophils # (Manual) APTT Heparin Anti-Xa Level ABG pH POC ABG pO2 ABG pO2 56.3 L ABG HCO3 29.3 H ABG O2 Saturation 91.5 L ABG Base Excess 4.7 H POC ABG pCO2 ABG Hemoglobin 12.1 L ABG Oxyhemoglobin Oxyhemoglobin 89.2 L Sodium 147 H Potassium Chloride Carbon Dioxide BUN 30 H Creatinine Glucose 124 H POC Glucose Lactic Acid Calcium Phosphorus Magnesium AST ALT Lactate Dehydrogenase CK-MB (CK-2) C-Reactive Protein NT-Pro-B Natriuret Pep Total Protein Albumin 3.8 L Urine WBC (Auto) 11/30/19 11/30/19 11/30/19 05:51 11:54 18:17 WBC RBC Hgb Hct MCHC RDW MCH Lymph % (Auto) Clinch % (Auto) Clinch # Eos # Lymph # (Auto) Clinch # (Auto) Eos # (Auto) Seg Neutrophils % Seg Neuts % (Manual) Baso # (Auto) Lymphocytes % (Manual) Monocytes % (Manual) Eosinophils % (Manual) Basophils % (Manual) Seg Neutrophils # Seg Neutrophils # Man Lymphocytes # (Manual) Monocytes # (Manual) Eosinophils # (Manual) Nucleated RBC % Basophils # (Manual) APTT Heparin Anti-Xa Level ABG pH POC ABG pO2 ABG pO2 ABG HCO3 ABG O2 Saturation ABG Base Excess POC ABG pCO2 ABG Hemoglobin ABG Oxyhemoglobin Oxyhemoglobin Sodium Potassium Chloride Carbon Dioxide BUN Creatinine Glucose POC Glucose 127 H 115 H 143 H Lactic Acid Calcium Phosphorus Magnesium AST ALT Lactate Dehydrogenase CK-MB (CK-2) C-Reactive Protein NT-Pro-B Natriuret Pep Total Protein Albumin Urine WBC (Auto) 12/01/19 12/01/19 12/01/19 01:18 05:22 12:16 WBC RBC Hgb Hct MCHC RDW MCH Lymph % (Auto) Clinch % (Auto) Clinch # Eos # Lymph # (Auto) Clinch # (Auto) Eos # (Auto) Seg Neutrophils % Seg Neuts % (Manual) Baso # (Auto) Lymphocytes % (Manual) Monocytes % (Manual) Eosinophils % (Manual) Basophils % (Manual) Seg Neutrophils # Seg Neutrophils # Man Lymphocytes # (Manual) Monocytes # (Manual) Eosinophils # (Manual) Nucleated RBC % Basophils # (Manual) APTT Heparin Anti-Xa Level ABG pH POC ABG pO2 ABG pO2 ABG HCO3 ABG O2 Saturation ABG Base Excess POC ABG pCO2 ABG Hemoglobin ABG Oxyhemoglobin Oxyhemoglobin Sodium Potassium 3.5 L Chloride 107.8 H Carbon Dioxide BUN 37 H Creatinine Glucose 157 H POC Glucose 118 H 148 H Lactic Acid Calcium 8.2 L D Phosphorus Magnesium AST 48 H ALT 60 H Lactate Dehydrogenase 194 H CK-MB (CK-2) C-Reactive Protein 8.50 H NT-Pro-B Natriuret Pep Total Protein 5.5 L Albumin 2.8 L Urine WBC (Auto) 12/01/19 12/02/19 12/02/19 18:04 00:05 05:16 WBC 11.4 H RBC Hgb Hct MCHC RDW 15.9 H MCH Lymph % (Auto) Clinch % (Auto) 9.9 H Clinch # 1.1 H Eos # Lymph # (Auto) Clinch # (Auto) Eos # (Auto) Seg Neutrophils % 70.3 H Seg Neuts % (Manual) Baso # (Auto) Lymphocytes % (Manual) Monocytes % (Manual) Eosinophils % (Manual) Basophils % (Manual) Seg Neutrophils # 8.0 H Seg Neutrophils # Man Lymphocytes # (Manual) Monocytes # (Manual) Eosinophils # (Manual) Nucleated RBC % Basophils # (Manual) APTT Heparin Anti-Xa Level ABG pH POC ABG pO2 ABG pO2 ABG HCO3 ABG O2 Saturation ABG Base Excess POC ABG pCO2 ABG Hemoglobin ABG Oxyhemoglobin Oxyhemoglobin Sodium Potassium Chloride Carbon Dioxide BUN Creatinine Glucose POC Glucose 143 H 107 H Lactic Acid Calcium Phosphorus Magnesium AST ALT Lactate Dehydrogenase CK-MB (CK-2) C-Reactive Protein NT-Pro-B Natriuret Pep Total Protein Albumin Urine WBC (Auto) 12/02/19 12/02/19 12/02/19 05:16 06:03 11:52 WBC RBC Hgb Hct MCHC RDW MCH Lymph % (Auto) Clinch % (Auto) Clinch # Eos # Lymph # (Auto) Clinch # (Auto) Eos # (Auto) Seg Neutrophils % Seg Neuts % (Manual) Baso # (Auto) Lymphocytes % (Manual) Monocytes % (Manual) Eosinophils % (Manual) Basophils % (Manual) Seg Neutrophils # Seg Neutrophils # Man Lymphocytes # (Manual) Monocytes # (Manual) Eosinophils # (Manual) Nucleated RBC % Basophils # (Manual) APTT Heparin Anti-Xa Level ABG pH POC ABG pO2 ABG pO2 ABG HCO3 ABG O2 Saturation ABG Base Excess POC ABG pCO2 ABG Hemoglobin ABG Oxyhemoglobin Oxyhemoglobin Sodium 146 H Potassium Chloride Carbon Dioxide BUN 28 H Creatinine Glucose 123 H POC Glucose 110 H 152 H Lactic Acid Calcium Phosphorus Magnesium AST ALT Lactate Dehydrogenase CK-MB (CK-2) C-Reactive Protein NT-Pro-B Natriuret Pep Total Protein Albumin Urine WBC (Auto) 12/02/19 12/02/19 12/02/19 12:58 17:58 23:36 WBC RBC Hgb Hct MCHC RDW MCH Lymph % (Auto) Clinch % (Auto) Clinch # Eos # Lymph # (Auto) Clinch # (Auto) Eos # (Auto) Seg Neutrophils % Seg Neuts % (Manual) Baso # (Auto) Lymphocytes % (Manual) Monocytes % (Manual) Eosinophils % (Manual) Basophils % (Manual) Seg Neutrophils # Seg Neutrophils # Man Lymphocytes # (Manual) Monocytes # (Manual) Eosinophils # (Manual) Nucleated RBC % Basophils # (Manual) APTT Heparin Anti-Xa Level ABG pH POC ABG pO2 78.1 L ABG pO2 ABG HCO3 ABG O2 Saturation ABG Base Excess POC ABG pCO2 ABG Hemoglobin ABG Oxyhemoglobin Oxyhemoglobin Sodium Potassium Chloride Carbon Dioxide BUN Creatinine Glucose POC Glucose 120 H 123 H Lactic Acid Calcium Phosphorus Magnesium AST ALT Lactate Dehydrogenase CK-MB (CK-2) C-Reactive Protein NT-Pro-B Natriuret Pep Total Protein Albumin Urine WBC (Auto) 12/03/19 12/03/19 12/03/19 06:03 06:14 11:46 WBC RBC Hgb Hct MCHC RDW MCH Lymph % (Auto) Clinch % (Auto) Clinch # Eos # Lymph # (Auto) Clinch # (Auto) Eos # (Auto) Seg Neutrophils % Seg Neuts % (Manual) Baso # (Auto) Lymphocytes % (Manual) Monocytes % (Manual) Eosinophils % (Manual) Basophils % (Manual) Seg Neutrophils # Seg Neutrophils # Man Lymphocytes # (Manual) Monocytes # (Manual) Eosinophils # (Manual) Nucleated RBC % Basophils # (Manual) APTT Heparin Anti-Xa Level ABG pH POC ABG pO2 ABG pO2 ABG HCO3 ABG O2 Saturation ABG Base Excess POC ABG pCO2 ABG Hemoglobin ABG Oxyhemoglobin Oxyhemoglobin Sodium Potassium Chloride Carbon Dioxide BUN Creatinine Glucose POC Glucose 142 H 130 H Lactic Acid Calcium Phosphorus Magnesium AST ALT Lactate Dehydrogenase CK-MB (CK-2) C-Reactive Protein NT-Pro-B Natriuret Pep Total Protein Albumin Urine WBC (Auto) 8.0 H 12/03/19 12/03/19 12/04/19 15:50 17:39 00:04 WBC RBC Hgb Hct MCHC RDW MCH Lymph % (Auto) Clinch % (Auto) Clinch # Eos # Lymph # (Auto) Clinch # (Auto) Eos # (Auto) Seg Neutrophils % Seg Neuts % (Manual) Baso # (Auto) Lymphocytes % (Manual) Monocytes % (Manual) Eosinophils % (Manual) Basophils % (Manual) Seg Neutrophils # Seg Neutrophils # Man Lymphocytes # (Manual) Monocytes # (Manual) Eosinophils # (Manual) Nucleated RBC % Basophils # (Manual) APTT Heparin Anti-Xa Level ABG pH POC ABG pO2 ABG pO2 ABG HCO3 ABG O2 Saturation ABG Base Excess POC ABG pCO2 ABG Hemoglobin ABG Oxyhemoglobin Oxyhemoglobin Sodium Potassium Chloride Carbon Dioxide BUN Creatinine Glucose POC Glucose 146 H 133 H Lactic Acid Calcium Phosphorus 2.40 L Magnesium AST ALT Lactate Dehydrogenase CK-MB (CK-2) C-Reactive Protein NT-Pro-B Natriuret Pep Total Protein Albumin Urine WBC (Auto) 12/04/19 12/04/19 12/04/19 03:58 03:58 05:22 WBC 12.5 H RBC Hgb 11.2 L Hct 35.2 L MCHC RDW 16.0 H MCH Lymph % (Auto) Clinch % (Auto) 9.6 H Clinch # 1.2 H Eos # 0.5 H Lymph # (Auto) Clinch # (Auto) Eos # (Auto) Seg Neutrophils % Seg Neuts % (Manual) Baso # (Auto) Lymphocytes % (Manual) Monocytes % (Manual) Eosinophils % (Manual) Basophils % (Manual) Seg Neutrophils # 8.6 H Seg Neutrophils # Man Lymphocytes # (Manual) Monocytes # (Manual) Eosinophils # (Manual) Nucleated RBC % Basophils # (Manual) APTT Heparin Anti-Xa Level ABG pH POC ABG pO2 ABG pO2 ABG HCO3 ABG O2 Saturation ABG Base Excess POC ABG pCO2 ABG Hemoglobin ABG Oxyhemoglobin Oxyhemoglobin Sodium 146 H Potassium Chloride 108.6 H Carbon Dioxide BUN 30 H Creatinine 0.7 L Glucose 121 H POC Glucose 132 H Lactic Acid Calcium Phosphorus Magnesium AST ALT Lactate Dehydrogenase CK-MB (CK-2) C-Reactive Protein NT-Pro-B Natriuret Pep Total Protein Albumin Urine WBC (Auto) 12/04/19 12/04/19 12/05/19 13:26 18:43 00:19 WBC RBC Hgb Hct MCHC RDW MCH Lymph % (Auto) Clinch % (Auto) Clinch # Eos # Lymph # (Auto) Clinch # (Auto) Eos # (Auto) Seg Neutrophils % Seg Neuts % (Manual) Baso # (Auto) Lymphocytes % (Manual) Monocytes % (Manual) Eosinophils % (Manual) Basophils % (Manual) Seg Neutrophils # Seg Neutrophils # Man Lymphocytes # (Manual) Monocytes # (Manual) Eosinophils # (Manual) Nucleated RBC % Basophils # (Manual) APTT Heparin Anti-Xa Level ABG pH POC ABG pO2 ABG pO2 ABG HCO3 ABG O2 Saturation ABG Base Excess POC ABG pCO2 ABG Hemoglobin ABG Oxyhemoglobin Oxyhemoglobin Sodium Potassium Chloride Carbon Dioxide BUN Creatinine Glucose POC Glucose 185 H 156 H 150 H Lactic Acid Calcium Phosphorus Magnesium AST ALT Lactate Dehydrogenase CK-MB (CK-2) C-Reactive Protein NT-Pro-B Natriuret Pep Total Protein Albumin Urine WBC (Auto) 12/05/19 12/05/19 12/05/19 03:37 03:37 05:14 WBC 16.3 H RBC Hgb 11.4 L Hct MCHC RDW 15.6 H MCH Lymph % (Auto) 9.9 L Clinch % (Auto) 9.7 H Clinch # 1.6 H Eos # Lymph # (Auto) Clinch # (Auto) Eos # (Auto) Seg Neutrophils % 78.0 H Seg Neuts % (Manual) Baso # (Auto) Lymphocytes % (Manual) Monocytes % (Manual) Eosinophils % (Manual) Basophils % (Manual) Seg Neutrophils # 12.7 H Seg Neutrophils # Man Lymphocytes # (Manual) Monocytes # (Manual) Eosinophils # (Manual) Nucleated RBC % Basophils # (Manual) APTT Heparin Anti-Xa Level ABG pH POC ABG pO2 ABG pO2 ABG HCO3 ABG O2 Saturation ABG Base Excess POC ABG pCO2 ABG Hemoglobin ABG Oxyhemoglobin Oxyhemoglobin Sodium 146 H Potassium Chloride 107.2 H Carbon Dioxide BUN 27 H Creatinine 0.7 L Glucose 171 H POC Glucose 168 H Lactic Acid Calcium Phosphorus Magnesium AST ALT Lactate Dehydrogenase CK-MB (CK-2) C-Reactive Protein NT-Pro-B Natriuret Pep Total Protein Albumin Urine WBC (Auto) 12/05/19 12/05/19 12/05/19 12:31 18:10 23:58 WBC RBC Hgb Hct MCHC RDW MCH Lymph % (Auto) Clinch % (Auto) Clinch # Eos # Lymph # (Auto) Clinch # (Auto) Eos # (Auto) Seg Neutrophils % Seg Neuts % (Manual) Baso # (Auto) Lymphocytes % (Manual) Monocytes % (Manual) Eosinophils % (Manual) Basophils % (Manual) Seg Neutrophils # Seg Neutrophils # Man Lymphocytes # (Manual) Monocytes # (Manual) Eosinophils # (Manual) Nucleated RBC % Basophils # (Manual) APTT Heparin Anti-Xa Level ABG pH POC ABG pO2 ABG pO2 ABG HCO3 ABG O2 Saturation ABG Base Excess POC ABG pCO2 ABG Hemoglobin ABG Oxyhemoglobin Oxyhemoglobin Sodium Potassium Chloride Carbon Dioxide BUN Creatinine Glucose POC Glucose 159 H 198 H 115 H Lactic Acid Calcium Phosphorus Magnesium AST ALT Lactate Dehydrogenase CK-MB (CK-2) C-Reactive Protein NT-Pro-B Natriuret Pep Total Protein Albumin Urine WBC (Auto) 12/06/19 12/06/19 12/06/19 05:24 05:24 05:25 WBC 14.9 H RBC Hgb 10.8 L Hct 34.0 L MCHC RDW 15.6 H MCH Lymph % (Auto) 10.7 L Clinch % (Auto) 8.3 H Clinch # 1.2 H Eos # Lymph # (Auto) Clinch # (Auto) Eos # (Auto) Seg Neutrophils % 78.7 H Seg Neuts % (Manual) Baso # (Auto) Lymphocytes % (Manual) Monocytes % (Manual) Eosinophils % (Manual) Basophils % (Manual) Seg Neutrophils # 11.7 H Seg Neutrophils # Man Lymphocytes # (Manual) Monocytes # (Manual) Eosinophils # (Manual) Nucleated RBC % Basophils # (Manual) APTT Heparin Anti-Xa Level ABG pH POC ABG pO2 ABG pO2 ABG HCO3 ABG O2 Saturation ABG Base Excess POC ABG pCO2 ABG Hemoglobin ABG Oxyhemoglobin Oxyhemoglobin Sodium 148 H Potassium 5.1 H Chloride 107.6 H Carbon Dioxide BUN 27 H Creatinine 0.7 L Glucose 155 H POC Glucose 157 H Lactic Acid Calcium Phosphorus Magnesium AST ALT Lactate Dehydrogenase CK-MB (CK-2) C-Reactive Protein NT-Pro-B Natriuret Pep Total Protein Albumin Urine WBC (Auto) 12/07/19 12/07/19 12/07/19 00:13 05:34 11:33 WBC RBC Hgb Hct MCHC RDW MCH Lymph % (Auto) Clinch % (Auto) Clinch # Eos # Lymph # (Auto) Clinch # (Auto) Eos # (Auto) Seg Neutrophils % Seg Neuts % (Manual) Baso # (Auto) Lymphocytes % (Manual) Monocytes % (Manual) Eosinophils % (Manual) Basophils % (Manual) Seg Neutrophils # Seg Neutrophils # Man Lymphocytes # (Manual) Monocytes # (Manual) Eosinophils # (Manual) Nucleated RBC % Basophils # (Manual) APTT Heparin Anti-Xa Level ABG pH POC ABG pO2 ABG pO2 ABG HCO3 ABG O2 Saturation ABG Base Excess POC ABG pCO2 ABG Hemoglobin ABG Oxyhemoglobin Oxyhemoglobin Sodium Potassium Chloride Carbon Dioxide BUN Creatinine Glucose POC Glucose 142 H 111 H 169 H Lactic Acid Calcium Phosphorus Magnesium AST ALT Lactate Dehydrogenase CK-MB (CK-2) C-Reactive Protein NT-Pro-B Natriuret Pep Total Protein Albumin Urine WBC (Auto) 12/07/19 12/07/19 12/07/19 12:41 13:25 18:19 WBC 12.4 H RBC 3.53 L Hgb 10.2 L Hct 32.1 L MCHC RDW 15.3 H MCH Lymph % (Auto) 10.6 L Clinch % (Auto) 7.8 H Clinch # 1.0 H Eos # Lymph # (Auto) Clinch # (Auto) Eos # (Auto) Seg Neutrophils % 77.6 H Seg Neuts % (Manual) Baso # (Auto) Lymphocytes % (Manual) Monocytes % (Manual) Eosinophils % (Manual) Basophils % (Manual) Seg Neutrophils # 9.6 H Seg Neutrophils # Man Lymphocytes # (Manual) Monocytes # (Manual) Eosinophils # (Manual) Nucleated RBC % Basophils # (Manual) APTT Heparin Anti-Xa Level ABG pH POC ABG pO2 ABG pO2 ABG HCO3 ABG O2 Saturation ABG Base Excess POC ABG pCO2 ABG Hemoglobin ABG Oxyhemoglobin Oxyhemoglobin Sodium 149 H Potassium Chloride 108.4 H Carbon Dioxide BUN 26 H Creatinine 0.6 L Glucose 149 H POC Glucose 164 H Lactic Acid Calcium Phosphorus Magnesium 2.60 H AST 121 H ALT 145 H Lactate Dehydrogenase CK-MB (CK-2) C-Reactive Protein NT-Pro-B Natriuret Pep Total Protein Albumin 2.6 L Urine WBC (Auto) 12/07/19 12/08/19 12/08/19 22:25 00:02 03:55 WBC 13.3 H RBC 3.40 L Hgb 9.7 L Hct 30.8 L MCHC 31 L RDW 15.5 H MCH Lymph % (Auto) Clinch % (Auto) 8.1 H Clinch # 1.1 H Eos # Lymph # (Auto) Clinch # (Auto) Eos # (Auto) Seg Neutrophils % 73.0 H Seg Neuts % (Manual) Baso # (Auto) Lymphocytes % (Manual) Monocytes % (Manual) Eosinophils % (Manual) Basophils % (Manual) Seg Neutrophils # 9.7 H Seg Neutrophils # Man Lymphocytes # (Manual) Monocytes # (Manual) Eosinophils # (Manual) Nucleated RBC % Basophils # (Manual) APTT Heparin Anti-Xa Level 0.12 L ABG pH POC ABG pO2 ABG pO2 ABG HCO3 ABG O2 Saturation ABG Base Excess POC ABG pCO2 ABG Hemoglobin ABG Oxyhemoglobin Oxyhemoglobin Sodium Potassium Chloride Carbon Dioxide BUN Creatinine Glucose POC Glucose 151 H Lactic Acid Calcium Phosphorus Magnesium AST ALT Lactate Dehydrogenase CK-MB (CK-2) C-Reactive Protein NT-Pro-B Natriuret Pep Total Protein Albumin Urine WBC (Auto) 12/08/19 12/08/19 12/08/19 03:55 05:21 06:01 WBC RBC Hgb Hct MCHC RDW MCH Lymph % (Auto) Clinch % (Auto) Clinch # Eos # Lymph # (Auto) Clinch # (Auto) Eos # (Auto) Seg Neutrophils % Seg Neuts % (Manual) Baso # (Auto) Lymphocytes % (Manual) Monocytes % (Manual) Eosinophils % (Manual) Basophils % (Manual) Seg Neutrophils # Seg Neutrophils # Man Lymphocytes # (Manual) Monocytes # (Manual) Eosinophils # (Manual) Nucleated RBC % Basophils # (Manual) APTT Heparin Anti-Xa Level 0.20 L ABG pH POC ABG pO2 ABG pO2 ABG HCO3 ABG O2 Saturation ABG Base Excess POC ABG pCO2 ABG Hemoglobin ABG Oxyhemoglobin Oxyhemoglobin Sodium 149 H Potassium Chloride 108.0 H Carbon Dioxide BUN 28 H Creatinine 0.6 L Glucose 144 H POC Glucose 143 H Lactic Acid Calcium Phosphorus Magnesium AST 98 H ALT 145 H Lactate Dehydrogenase CK-MB (CK-2) C-Reactive Protein NT-Pro-B Natriuret Pep Total Protein 6.0 L Albumin 2.4 L Urine WBC (Auto) 12/08/19 12/08/19 12/08/19 12:08 18:11 23:53 WBC RBC Hgb Hct MCHC RDW MCH Lymph % (Auto) Clinch % (Auto) Clinch # Eos # Lymph # (Auto) Clinch # (Auto) Eos # (Auto) Seg Neutrophils % Seg Neuts % (Manual) Baso # (Auto) Lymphocytes % (Manual) Monocytes % (Manual) Eosinophils % (Manual) Basophils % (Manual) Seg Neutrophils # Seg Neutrophils # Man Lymphocytes # (Manual) Monocytes # (Manual) Eosinophils # (Manual) Nucleated RBC % Basophils # (Manual) APTT Heparin Anti-Xa Level ABG pH POC ABG pO2 ABG pO2 ABG HCO3 ABG O2 Saturation ABG Base Excess POC ABG pCO2 ABG Hemoglobin ABG Oxyhemoglobin Oxyhemoglobin Sodium Potassium Chloride Carbon Dioxide BUN Creatinine Glucose POC Glucose 172 H 122 H 162 H Lactic Acid Calcium Phosphorus Magnesium AST ALT Lactate Dehydrogenase CK-MB (CK-2) C-Reactive Protein NT-Pro-B Natriuret Pep Total Protein Albumin Urine WBC (Auto) 12/09/19 12/09/19 12/09/19 04:03 04:03 05:53 WBC RBC Hgb 9.1 L Hct 28.9 L MCHC RDW MCH Lymph % (Auto) Clinch % (Auto) Clinch # Eos # Lymph # (Auto) Clinch # (Auto) Eos # (Auto) Seg Neutrophils % Seg Neuts % (Manual) Baso # (Auto) Lymphocytes % (Manual) Monocytes % (Manual) Eosinophils % (Manual) Basophils % (Manual) Seg Neutrophils # Seg Neutrophils # Man Lymphocytes # (Manual) Monocytes # (Manual) Eosinophils # (Manual) Nucleated RBC % Basophils # (Manual) APTT Heparin Anti-Xa Level 0.15 L ABG pH POC ABG pO2 ABG pO2 ABG HCO3 ABG O2 Saturation ABG Base Excess POC ABG pCO2 ABG Hemoglobin ABG Oxyhemoglobin Oxyhemoglobin Sodium Potassium Chloride Carbon Dioxide BUN Creatinine Glucose POC Glucose 124 H Lactic Acid Calcium Phosphorus Magnesium AST ALT Lactate Dehydrogenase CK-MB (CK-2) C-Reactive Protein NT-Pro-B Natriuret Pep Total Protein Albumin Urine WBC (Auto) 12/09/19 12/09/19 12/10/19 09:43 12:41 00:13 WBC RBC Hgb Hct MCHC RDW MCH Lymph % (Auto) Clinch % (Auto) Clinch # Eos # Lymph # (Auto) Clinch # (Auto) Eos # (Auto) Seg Neutrophils % Seg Neuts % (Manual) Baso # (Auto) Lymphocytes % (Manual) Monocytes % (Manual) Eosinophils % (Manual) Basophils % (Manual) Seg Neutrophils # Seg Neutrophils # Man Lymphocytes # (Manual) Monocytes # (Manual) Eosinophils # (Manual) Nucleated RBC % Basophils # (Manual) APTT Heparin Anti-Xa Level ABG pH POC ABG pO2 ABG pO2 ABG HCO3 ABG O2 Saturation ABG Base Excess POC ABG pCO2 ABG Hemoglobin ABG Oxyhemoglobin Oxyhemoglobin Sodium Potassium Chloride Carbon Dioxide BUN 25 H Creatinine 0.6 L Glucose 131 H POC Glucose 109 H 120 H Lactic Acid Calcium Phosphorus Magnesium AST ALT Lactate Dehydrogenase CK-MB (CK-2) C-Reactive Protein NT-Pro-B Natriuret Pep Total Protein Albumin Urine WBC (Auto) 12/10/19 12/10/19 12/10/19 04:14 04:14 12:00 WBC 13.3 H RBC 3.34 L Hgb 9.6 L Hct 30.4 L MCHC RDW 15.4 H MCH Lymph % (Auto) Clinch % (Auto) Clinch # Eos # Lymph # (Auto) Clinch # (Auto) Eos # (Auto) Seg Neutrophils % Seg Neuts % (Manual) 75.0 H Baso # (Auto) Lymphocytes % (Manual) 13.0 L Monocytes % (Manual) 8.0 H Eosinophils % (Manual) Basophils % (Manual) 2.0 H Seg Neutrophils # Seg Neutrophils # Man 10.0 H Lymphocytes # (Manual) Monocytes # (Manual) 1.1 H Eosinophils # (Manual) Nucleated RBC % Basophils # (Manual) 0.3 H APTT Heparin Anti-Xa Level ABG pH POC ABG pO2 ABG pO2 ABG HCO3 ABG O2 Saturation ABG Base Excess POC ABG pCO2 ABG Hemoglobin ABG Oxyhemoglobin Oxyhemoglobin Sodium 147 H Potassium Chloride 108.3 H Carbon Dioxide BUN 21 H Creatinine 0.6 L Glucose 104 H POC Glucose 133 H Lactic Acid Calcium Phosphorus Magnesium AST ALT Lactate Dehydrogenase CK-MB (CK-2) C-Reactive Protein NT-Pro-B Natriuret Pep Total Protein Albumin Urine WBC (Auto) 12/10/19 12/10/19 12/11/19 18:44 21:20 00:08 WBC 14.9 H RBC 3.36 L Hgb 9.6 L Hct 30.5 L MCHC RDW 15.4 H MCH Lymph % (Auto) Clinch % (Auto) Clinch # Eos # Lymph # (Auto) Clinch # (Auto) Eos # (Auto) Seg Neutrophils % Seg Neuts % (Manual) Baso # (Auto) Lymphocytes % (Manual) Monocytes % (Manual) Eosinophils % (Manual) Basophils % (Manual) Seg Neutrophils # Seg Neutrophils # Man Lymphocytes # (Manual) Monocytes # (Manual) Eosinophils # (Manual) Nucleated RBC % Basophils # (Manual) APTT Heparin Anti-Xa Level ABG pH POC ABG pO2 ABG pO2 ABG HCO3 ABG O2 Saturation ABG Base Excess POC ABG pCO2 ABG Hemoglobin ABG Oxyhemoglobin Oxyhemoglobin Sodium Potassium Chloride Carbon Dioxide BUN Creatinine Glucose POC Glucose 119 H 134 H Lactic Acid Calcium Phosphorus Magnesium AST ALT Lactate Dehydrogenase CK-MB (CK-2) C-Reactive Protein NT-Pro-B Natriuret Pep Total Protein Albumin Urine WBC (Auto) 12/11/19 12/11/19 12/11/19 03:54 07:28 08:36 WBC 11.9 H RBC 3.25 L Hgb 9.6 L Hct 29.2 L MCHC RDW 15.7 H MCH Lymph % (Auto) Clinch % (Auto) Clinch # Eos # Lymph # (Auto) Clinch # (Auto) Eos # (Auto) Seg Neutrophils % Seg Neuts % (Manual) Baso # (Auto) Lymphocytes % (Manual) Monocytes % (Manual) Eosinophils % (Manual) Basophils % (Manual) Seg Neutrophils # Seg Neutrophils # Man Lymphocytes # (Manual) Monocytes # (Manual) Eosinophils # (Manual) Nucleated RBC % Basophils # (Manual) APTT Heparin Anti-Xa Level 0.10 L 0.16 L ABG pH POC ABG pO2 ABG pO2 ABG HCO3 ABG O2 Saturation ABG Base Excess POC ABG pCO2 ABG Hemoglobin ABG Oxyhemoglobin Oxyhemoglobin Sodium Potassium Chloride Carbon Dioxide BUN Creatinine Glucose POC Glucose Lactic Acid Calcium Phosphorus Magnesium AST ALT Lactate Dehydrogenase CK-MB (CK-2) C-Reactive Protein NT-Pro-B Natriuret Pep Total Protein Albumin Urine WBC (Auto) 12/11/19 12/11/19 12/11/19 08:36 11:45 17:15 WBC RBC Hgb Hct MCHC RDW MCH Lymph % (Auto) Clinch % (Auto) Clinch # Eos # Lymph # (Auto) Clinch # (Auto) Eos # (Auto) Seg Neutrophils % Seg Neuts % (Manual) Baso # (Auto) Lymphocytes % (Manual) Monocytes % (Manual) Eosinophils % (Manual) Basophils % (Manual) Seg Neutrophils # Seg Neutrophils # Man Lymphocytes # (Manual) Monocytes # (Manual) Eosinophils # (Manual) Nucleated RBC % Basophils # (Manual) APTT Heparin Anti-Xa Level ABG pH POC ABG pO2 ABG pO2 ABG HCO3 ABG O2 Saturation ABG Base Excess POC ABG pCO2 ABG Hemoglobin ABG Oxyhemoglobin Oxyhemoglobin Sodium Potassium Chloride Carbon Dioxide BUN Creatinine 0.5 L Glucose 128 H POC Glucose 136 H 109 H Lactic Acid Calcium Phosphorus Magnesium AST ALT Lactate Dehydrogenase CK-MB (CK-2) C-Reactive Protein NT-Pro-B Natriuret Pep Total Protein Albumin Urine WBC (Auto) 12/12/19 12/12/19 12/12/19 00:03 05:53 05:53 WBC RBC Hgb 8.8 L Hct 27.6 L MCHC RDW MCH Lymph % (Auto) Clinch % (Auto) Clinch # Eos # Lymph # (Auto) Clinch # (Auto) Eos # (Auto) Seg Neutrophils % Seg Neuts % (Manual) Baso # (Auto) Lymphocytes % (Manual) Monocytes % (Manual) Eosinophils % (Manual) Basophils % (Manual) Seg Neutrophils # Seg Neutrophils # Man Lymphocytes # (Manual) Monocytes # (Manual) Eosinophils # (Manual) Nucleated RBC % Basophils # (Manual) APTT Heparin Anti-Xa Level 0.22 L ABG pH POC ABG pO2 ABG pO2 ABG HCO3 ABG O2 Saturation ABG Base Excess POC ABG pCO2 ABG Hemoglobin ABG Oxyhemoglobin Oxyhemoglobin Sodium Potassium Chloride Carbon Dioxide BUN Creatinine Glucose POC Glucose 116 H Lactic Acid Calcium Phosphorus Magnesium AST ALT Lactate Dehydrogenase CK-MB (CK-2) C-Reactive Protein NT-Pro-B Natriuret Pep Total Protein Albumin Urine WBC (Auto) 12/12/19 12/12/19 12/12/19 09:38 12:18 17:44 WBC RBC Hgb Hct MCHC RDW MCH Lymph % (Auto) Clinch % (Auto) Clinch # Eos # Lymph # (Auto) Clinch # (Auto) Eos # (Auto) Seg Neutrophils % Seg Neuts % (Manual) Baso # (Auto) Lymphocytes % (Manual) Monocytes % (Manual) Eosinophils % (Manual) Basophils % (Manual) Seg Neutrophils # Seg Neutrophils # Man Lymphocytes # (Manual) Monocytes # (Manual) Eosinophils # (Manual) Nucleated RBC % Basophils # (Manual) APTT Heparin Anti-Xa Level ABG pH POC ABG pO2 ABG pO2 ABG HCO3 ABG O2 Saturation ABG Base Excess POC ABG pCO2 ABG Hemoglobin ABG Oxyhemoglobin Oxyhemoglobin Sodium Potassium Chloride Carbon Dioxide BUN Creatinine Glucose POC Glucose 115 H 146 H 146 H Lactic Acid Calcium Phosphorus Magnesium AST ALT Lactate Dehydrogenase CK-MB (CK-2) C-Reactive Protein NT-Pro-B Natriuret Pep Total Protein Albumin Urine WBC (Auto) 12/12/19 12/13/19 12/13/19 23:33 05:32 05:32 WBC 13.1 H RBC 3.27 L Hgb 9.5 L Hct 29.3 L MCHC RDW 15.6 H MCH Lymph % (Auto) Clinch % (Auto) Clinch # Eos # Lymph # (Auto) Clinch # (Auto) Eos # (Auto) Seg Neutrophils % Seg Neuts % (Manual) 74.0 H Baso # (Auto) Lymphocytes % (Manual) 8.0 L Monocytes % (Manual) 9.0 H Eosinophils % (Manual) 5.0 H Basophils % (Manual) Seg Neutrophils # Seg Neutrophils # Man 9.7 H Lymphocytes # (Manual) 1.0 L Monocytes # (Manual) 1.2 H Eosinophils # (Manual) 0.7 H Nucleated RBC % Basophils # (Manual) APTT Heparin Anti-Xa Level 0.20 L ABG pH POC ABG pO2 ABG pO2 ABG HCO3 ABG O2 Saturation ABG Base Excess POC ABG pCO2 ABG Hemoglobin ABG Oxyhemoglobin Oxyhemoglobin Sodium Potassium Chloride Carbon Dioxide BUN Creatinine Glucose POC Glucose 126 H Lactic Acid Calcium Phosphorus Magnesium AST ALT Lactate Dehydrogenase CK-MB (CK-2) C-Reactive Protein NT-Pro-B Natriuret Pep Total Protein Albumin Urine WBC (Auto) 12/13/19 12/13/19 12/13/19 05:32 05:46 11:57 WBC RBC Hgb Hct MCHC RDW MCH Lymph % (Auto) Clinch % (Auto) Clinch # Eos # Lymph # (Auto) Clinch # (Auto) Eos # (Auto) Seg Neutrophils % Seg Neuts % (Manual) Baso # (Auto) Lymphocytes % (Manual) Monocytes % (Manual) Eosinophils % (Manual) Basophils % (Manual) Seg Neutrophils # Seg Neutrophils # Man Lymphocytes # (Manual) Monocytes # (Manual) Eosinophils # (Manual) Nucleated RBC % Basophils # (Manual) APTT Heparin Anti-Xa Level ABG pH POC ABG pO2 ABG pO2 ABG HCO3 ABG O2 Saturation ABG Base Excess POC ABG pCO2 ABG Hemoglobin ABG Oxyhemoglobin Oxyhemoglobin Sodium Potassium Chloride Carbon Dioxide 31 H BUN Creatinine 0.6 L Glucose 114 H POC Glucose 118 H 133 H Lactic Acid Calcium Phosphorus Magnesium AST ALT Lactate Dehydrogenase CK-MB (CK-2) C-Reactive Protein NT-Pro-B Natriuret Pep Total Protein Albumin Urine WBC (Auto) 12/13/19 12/13/19 12/14/19 17:44 23:46 05:32 WBC RBC Hgb Hct MCHC RDW MCH Lymph % (Auto) Clinch % (Auto) Clinch # Eos # Lymph # (Auto) Clinch # (Auto) Eos # (Auto) Seg Neutrophils % Seg Neuts % (Manual) Baso # (Auto) Lymphocytes % (Manual) Monocytes % (Manual) Eosinophils % (Manual) Basophils % (Manual) Seg Neutrophils # Seg Neutrophils # Man Lymphocytes # (Manual) Monocytes # (Manual) Eosinophils # (Manual) Nucleated RBC % Basophils # (Manual) APTT Heparin Anti-Xa Level ABG pH POC ABG pO2 ABG pO2 ABG HCO3 ABG O2 Saturation ABG Base Excess POC ABG pCO2 ABG Hemoglobin ABG Oxyhemoglobin Oxyhemoglobin Sodium Potassium Chloride Carbon Dioxide BUN Creatinine Glucose POC Glucose 161 H 126 H 139 H Lactic Acid Calcium Phosphorus Magnesium AST ALT Lactate Dehydrogenase CK-MB (CK-2) C-Reactive Protein NT-Pro-B Natriuret Pep Total Protein Albumin Urine WBC (Auto) 12/14/19 12/14/19 12/14/19 06:03 06:03 09:37 WBC RBC Hgb 9.6 L Hct 30.4 L MCHC RDW MCH Lymph % (Auto) Clinch % (Auto) Clinch # Eos # Lymph # (Auto) Clinch # (Auto) Eos # (Auto) Seg Neutrophils % Seg Neuts % (Manual) Baso # (Auto) Lymphocytes % (Manual) Monocytes % (Manual) Eosinophils % (Manual) Basophils % (Manual) Seg Neutrophils # Seg Neutrophils # Man Lymphocytes # (Manual) Monocytes # (Manual) Eosinophils # (Manual) Nucleated RBC % Basophils # (Manual) APTT Heparin Anti-Xa Level 0.24 L ABG pH POC ABG pO2 ABG pO2 ABG HCO3 ABG O2 Saturation ABG Base Excess POC ABG pCO2 ABG Hemoglobin ABG Oxyhemoglobin Oxyhemoglobin Sodium Potassium Chloride Carbon Dioxide BUN Creatinine 0.6 L Glucose 162 H POC Glucose Lactic Acid Calcium Phosphorus Magnesium AST 71 H ALT 118 H Lactate Dehydrogenase CK-MB (CK-2) C-Reactive Protein NT-Pro-B Natriuret Pep Total Protein 6.2 L Albumin 2.3 L Urine WBC (Auto) 12/14/19 12/14/19 12/15/19 12:06 18:18 00:19 WBC RBC Hgb Hct MCHC RDW MCH Lymph % (Auto) Clinch % (Auto) Clinch # Eos # Lymph # (Auto) Clinch # (Auto) Eos # (Auto) Seg Neutrophils % Seg Neuts % (Manual) Baso # (Auto) Lymphocytes % (Manual) Monocytes % (Manual) Eosinophils % (Manual) Basophils % (Manual) Seg Neutrophils # Seg Neutrophils # Man Lymphocytes # (Manual) Monocytes # (Manual) Eosinophils # (Manual) Nucleated RBC % Basophils # (Manual) APTT Heparin Anti-Xa Level ABG pH POC ABG pO2 ABG pO2 ABG HCO3 ABG O2 Saturation ABG Base Excess POC ABG pCO2 ABG Hemoglobin ABG Oxyhemoglobin Oxyhemoglobin Sodium Potassium Chloride Carbon Dioxide BUN Creatinine Glucose POC Glucose 147 H 166 H 123 H Lactic Acid Calcium Phosphorus Magnesium AST ALT Lactate Dehydrogenase CK-MB (CK-2) C-Reactive Protein NT-Pro-B Natriuret Pep Total Protein Albumin Urine WBC (Auto) 12/15/19 12/15/19 12/15/19 05:28 05:29 05:29 WBC 14.9 H RBC 3.19 L Hgb 9.1 L Hct 28.7 L MCHC RDW 16.0 H MCH Lymph % (Auto) Clinch % (Auto) Clinch # Eos # Lymph # (Auto) Clinch # (Auto) Eos # (Auto) Seg Neutrophils % Seg Neuts % (Manual) Baso # (Auto) Lymphocytes % (Manual) Monocytes % (Manual) Eosinophils % (Manual) Basophils % (Manual) Seg Neutrophils # Seg Neutrophils # Man Lymphocytes # (Manual) Monocytes # (Manual) Eosinophils # (Manual) Nucleated RBC % Basophils # (Manual) APTT Heparin Anti-Xa Level 0.19 L ABG pH POC ABG pO2 ABG pO2 ABG HCO3 ABG O2 Saturation ABG Base Excess POC ABG pCO2 ABG Hemoglobin ABG Oxyhemoglobin Oxyhemoglobin Sodium Potassium Chloride Carbon Dioxide BUN Creatinine 0.6 L Glucose 110 H POC Glucose Lactic Acid Calcium Phosphorus Magnesium AST ALT Lactate Dehydrogenase CK-MB (CK-2) C-Reactive Protein NT-Pro-B Natriuret Pep Total Protein Albumin Urine WBC (Auto) 12/15/19 12/15/19 12/15/19 05:53 11:50 17:26 WBC RBC Hgb Hct MCHC RDW MCH Lymph % (Auto) Clinch % (Auto) Clinch # Eos # Lymph # (Auto) Clinch # (Auto) Eos # (Auto) Seg Neutrophils % Seg Neuts % (Manual) Baso # (Auto) Lymphocytes % (Manual) Monocytes % (Manual) Eosinophils % (Manual) Basophils % (Manual) Seg Neutrophils # Seg Neutrophils # Man Lymphocytes # (Manual) Monocytes # (Manual) Eosinophils # (Manual) Nucleated RBC % Basophils # (Manual) APTT Heparin Anti-Xa Level ABG pH POC ABG pO2 ABG pO2 ABG HCO3 ABG O2 Saturation ABG Base Excess POC ABG pCO2 ABG Hemoglobin ABG Oxyhemoglobin Oxyhemoglobin Sodium Potassium Chloride Carbon Dioxide BUN Creatinine Glucose POC Glucose 119 H 132 H 128 H Lactic Acid Calcium Phosphorus Magnesium AST ALT Lactate Dehydrogenase CK-MB (CK-2) C-Reactive Protein NT-Pro-B Natriuret Pep Total Protein Albumin Urine WBC (Auto) 12/15/19 12/16/19 12/16/19 23:11 05:30 05:46 WBC RBC Hgb 8.8 L Hct 27.9 L MCHC RDW MCH Lymph % (Auto) Clinch % (Auto) Clinch # Eos # Lymph # (Auto) Clinch # (Auto) Eos # (Auto) Seg Neutrophils % Seg Neuts % (Manual) Baso # (Auto) Lymphocytes % (Manual) Monocytes % (Manual) Eosinophils % (Manual) Basophils % (Manual) Seg Neutrophils # Seg Neutrophils # Man Lymphocytes # (Manual) Monocytes # (Manual) Eosinophils # (Manual) Nucleated RBC % Basophils # (Manual) APTT Heparin Anti-Xa Level ABG pH POC ABG pO2 ABG pO2 ABG HCO3 ABG O2 Saturation ABG Base Excess POC ABG pCO2 ABG Hemoglobin ABG Oxyhemoglobin Oxyhemoglobin Sodium Potassium Chloride Carbon Dioxide BUN Creatinine Glucose POC Glucose 150 H 134 H Lactic Acid Calcium Phosphorus Magnesium AST ALT Lactate Dehydrogenase CK-MB (CK-2) C-Reactive Protein NT-Pro-B Natriuret Pep Total Protein Albumin Urine WBC (Auto) 12/16/19 12/16/19 12/16/19 05:46 05:46 11:44 WBC RBC Hgb Hct MCHC RDW MCH Lymph % (Auto) Clinch % (Auto) Clinch # Eos # Lymph # (Auto) Clinch # (Auto) Eos # (Auto) Seg Neutrophils % Seg Neuts % (Manual) Baso # (Auto) Lymphocytes % (Manual) Monocytes % (Manual) Eosinophils % (Manual) Basophils % (Manual) Seg Neutrophils # Seg Neutrophils # Man Lymphocytes # (Manual) Monocytes # (Manual) Eosinophils # (Manual) Nucleated RBC % Basophils # (Manual) APTT Heparin Anti-Xa Level 0.20 L ABG pH POC ABG pO2 ABG pO2 ABG HCO3 ABG O2 Saturation ABG Base Excess POC ABG pCO2 ABG Hemoglobin ABG Oxyhemoglobin Oxyhemoglobin Sodium Potassium Chloride Carbon Dioxide 31 H BUN Creatinine 0.5 L Glucose 147 H POC Glucose 164 H Lactic Acid Calcium Phosphorus Magnesium AST ALT Lactate Dehydrogenase CK-MB (CK-2) C-Reactive Protein NT-Pro-B Natriuret Pep Total Protein Albumin Urine WBC (Auto) 12/16/19 12/16/1920 17:17 23:49 05:30 WBC 13.9 H RBC 3.27 L Hgb 9.4 L Hct 29.2 L MCHC RDW 16.0 H MCH Lymph % (Auto) Clinch % (Auto) 8.8 H Clinch # Eos # Lymph # (Auto) Clinch # (Auto) 1.2 H Eos # (Auto) 0.5 H Seg Neutrophils % 70.5 H Seg Neuts % (Manual) Baso # (Auto) 0.2 H Lymphocytes % (Manual) Monocytes % (Manual) Eosinophils % (Manual) Basophils % (Manual) Seg Neutrophils # 9.8 H Seg Neutrophils # Man Lymphocytes # (Manual) Monocytes # (Manual) Eosinophils # (Manual) Nucleated RBC % Basophils # (Manual) APTT Heparin Anti-Xa Level ABG pH POC ABG pO2 ABG pO2 ABG HCO3 ABG O2 Saturation ABG Base Excess POC ABG pCO2 ABG Hemoglobin ABG Oxyhemoglobin Oxyhemoglobin Sodium Potassium Chloride Carbon Dioxide BUN Creatinine Glucose POC Glucose 162 H 144 H Lactic Acid Calcium Phosphorus Magnesium AST ALT Lactate Dehydrogenase CK-MB (CK-2) C-Reactive Protein NT-Pro-B Natriuret Pep Total Protein Albumin Urine WBC (Auto) 12/17/19 12/17/19 12/17/19 05:30 06:06 11:50 WBC RBC Hgb Hct MCHC RDW MCH Lymph % (Auto) Clinch % (Auto) Clinch # Eos # Lymph # (Auto) Clinch # (Auto) Eos # (Auto) Seg Neutrophils % Seg Neuts % (Manual) Baso # (Auto) Lymphocytes % (Manual) Monocytes % (Manual) Eosinophils % (Manual) Basophils % (Manual) Seg Neutrophils # Seg Neutrophils # Man Lymphocytes # (Manual) Monocytes # (Manual) Eosinophils # (Manual) Nucleated RBC % Basophils # (Manual) APTT Heparin Anti-Xa Level ABG pH POC ABG pO2 ABG pO2 ABG HCO3 ABG O2 Saturation ABG Base Excess POC ABG pCO2 ABG Hemoglobin ABG Oxyhemoglobin Oxyhemoglobin Sodium Potassium Chloride 97.4 L Carbon Dioxide 32 H BUN Creatinine 0.5 L Glucose 135 H POC Glucose 151 H 140 H Lactic Acid Calcium Phosphorus Magnesium AST ALT Lactate Dehydrogenase CK-MB (CK-2) C-Reactive Protein NT-Pro-B Natriuret Pep Total Protein Albumin Urine WBC (Auto) 12/17/19 12/17/19 12/18/19 17:50 23:46 05:17 WBC RBC Hgb 8.8 L Hct 28.0 L MCHC RDW MCH Lymph % (Auto) Clinch % (Auto) Clinch # Eos # Lymph # (Auto) Clinch # (Auto) Eos # (Auto) Seg Neutrophils % Seg Neuts % (Manual) Baso # (Auto) Lymphocytes % (Manual) Monocytes % (Manual) Eosinophils % (Manual) Basophils % (Manual) Seg Neutrophils # Seg Neutrophils # Man Lymphocytes # (Manual) Monocytes # (Manual) Eosinophils # (Manual) Nucleated RBC % Basophils # (Manual) APTT Heparin Anti-Xa Level ABG pH POC ABG pO2 ABG pO2 ABG HCO3 ABG O2 Saturation ABG Base Excess POC ABG pCO2 ABG Hemoglobin ABG Oxyhemoglobin Oxyhemoglobin Sodium Potassium Chloride Carbon Dioxide BUN Creatinine Glucose POC Glucose 158 H 150 H Lactic Acid Calcium Phosphorus Magnesium AST ALT Lactate Dehydrogenase CK-MB (CK-2) C-Reactive Protein NT-Pro-B Natriuret Pep Total Protein Albumin Urine WBC (Auto) 12/18/19 12/18/19 12/18/19 05:17 05:49 11:12 WBC RBC Hgb Hct MCHC RDW MCH Lymph % (Auto) Clinch % (Auto) Clinch # Eos # Lymph # (Auto) Clinch # (Auto) Eos # (Auto) Seg Neutrophils % Seg Neuts % (Manual) Baso # (Auto) Lymphocytes % (Manual) Monocytes % (Manual) Eosinophils % (Manual) Basophils % (Manual) Seg Neutrophils # Seg Neutrophils # Man Lymphocytes # (Manual) Monocytes # (Manual) Eosinophils # (Manual) Nucleated RBC % Basophils # (Manual) APTT Heparin Anti-Xa Level 0.16 L ABG pH POC ABG pO2 ABG pO2 ABG HCO3 ABG O2 Saturation ABG Base Excess POC ABG pCO2 ABG Hemoglobin ABG Oxyhemoglobin Oxyhemoglobin Sodium Potassium Chloride Carbon Dioxide BUN Creatinine Glucose POC Glucose 127 H 191 H Lactic Acid Calcium Phosphorus Magnesium AST ALT Lactate Dehydrogenase CK-MB (CK-2) C-Reactive Protein NT-Pro-B Natriuret Pep Total Protein Albumin Urine WBC (Auto) 12/18/19 12/18/19 12/19/19 17:03 20:16 00:08 WBC RBC Hgb Hct MCHC RDW MCH Lymph % (Auto) Clinch % (Auto) Clinch # Eos # Lymph # (Auto) Clinch # (Auto) Eos # (Auto) Seg Neutrophils % Seg Neuts % (Manual) Baso # (Auto) Lymphocytes % (Manual) Monocytes % (Manual) Eosinophils % (Manual) Basophils % (Manual) Seg Neutrophils # Seg Neutrophils # Man Lymphocytes # (Manual) Monocytes # (Manual) Eosinophils # (Manual) Nucleated RBC % Basophils # (Manual) APTT Heparin Anti-Xa Level ABG pH POC ABG pO2 ABG pO2 ABG HCO3 ABG O2 Saturation ABG Base Excess POC ABG pCO2 ABG Hemoglobin ABG Oxyhemoglobin Oxyhemoglobin Sodium Potassium Chloride Carbon Dioxide BUN Creatinine Glucose POC Glucose 133 H 128 H 129 H Lactic Acid Calcium Phosphorus Magnesium AST ALT Lactate Dehydrogenase CK-MB (CK-2) C-Reactive Protein NT-Pro-B Natriuret Pep Total Protein Albumin Urine WBC (Auto) 12/19/19 12/19/19 12/19/19 04:45 04:45 05:35 WBC RBC Hgb Hct MCHC RDW MCH Lymph % (Auto) Clinch % (Auto) Clinch # Eos # Lymph # (Auto) Clinch # (Auto) Eos # (Auto) Seg Neutrophils % Seg Neuts % (Manual) Baso # (Auto) Lymphocytes % (Manual) Monocytes % (Manual) Eosinophils % (Manual) Basophils % (Manual) Seg Neutrophils # Seg Neutrophils # Man Lymphocytes # (Manual) Monocytes # (Manual) Eosinophils # (Manual) Nucleated RBC % Basophils # (Manual) APTT Heparin Anti-Xa Level 0.17 L ABG pH POC ABG pO2 ABG pO2 ABG HCO3 ABG O2 Saturation ABG Base Excess POC ABG pCO2 ABG Hemoglobin ABG Oxyhemoglobin Oxyhemoglobin Sodium Potassium Chloride Carbon Dioxide BUN Creatinine Glucose POC Glucose 120 H Lactic Acid Calcium Phosphorus Magnesium AST ALT Lactate Dehydrogenase 228 H CK-MB (CK-2) C-Reactive Protein NT-Pro-B Natriuret Pep Total Protein Albumin Urine WBC (Auto) 12/19/19 12/19/19 12/19/19 09:20 11:32 11:32 WBC 14.6 H RBC 3.08 L Hgb 9.0 L Hct 26.8 L MCHC RDW 15.9 H MCH Lymph % (Auto) Clinch % (Auto) Clinch # Eos # Lymph # (Auto) Clinch # (Auto) Eos # (Auto) Seg Neutrophils % Seg Neuts % (Manual) 82.0 H Baso # (Auto) Lymphocytes % (Manual) 10.0 L Monocytes % (Manual) Eosinophils % (Manual) Basophils % (Manual) Seg Neutrophils # Seg Neutrophils # Man 12.0 H Lymphocytes # (Manual) Monocytes # (Manual) 0.9 H Eosinophils # (Manual) Nucleated RBC % 1.0 H Basophils # (Manual) APTT Heparin Anti-Xa Level ABG pH 7.451 H POC ABG pO2 ABG pO2 62.6 L ABG HCO3 33.2 H ABG O2 Saturation 93.8 L ABG Base Excess 8.3 H POC ABG pCO2 ABG Hemoglobin 8.3 L ABG Oxyhemoglobin Oxyhemoglobin 91.9 L Sodium Potassium Chloride 95.0 L Carbon Dioxide 33 H BUN 22 H Creatinine 0.6 L Glucose 150 H POC Glucose Lactic Acid Calcium Phosphorus Magnesium AST ALT Lactate Dehydrogenase CK-MB (CK-2) C-Reactive Protein NT-Pro-B Natriuret Pep Total Protein 6.2 L Albumin 2.4 L Urine WBC (Auto) 12/19/19 12/19/19 12/20/19 11:56 18:17 00:09 WBC RBC Hgb Hct MCHC RDW MCH Lymph % (Auto) Clinch % (Auto) Clinch # Eos # Lymph # (Auto) Clinch # (Auto) Eos # (Auto) Seg Neutrophils % Seg Neuts % (Manual) Baso # (Auto) Lymphocytes % (Manual) Monocytes % (Manual) Eosinophils % (Manual) Basophils % (Manual) Seg Neutrophils # Seg Neutrophils # Man Lymphocytes # (Manual) Monocytes # (Manual) Eosinophils # (Manual) Nucleated RBC % Basophils # (Manual) APTT Heparin Anti-Xa Level ABG pH POC ABG pO2 ABG pO2 ABG HCO3 ABG O2 Saturation ABG Base Excess POC ABG pCO2 ABG Hemoglobin ABG Oxyhemoglobin Oxyhemoglobin Sodium Potassium Chloride Carbon Dioxide BUN Creatinine Glucose POC Glucose 156 H 156 H 155 H Lactic Acid Calcium Phosphorus Magnesium AST ALT Lactate Dehydrogenase CK-MB (CK-2) C-Reactive Protein NT-Pro-B Natriuret Pep Total Protein Albumin Urine WBC (Auto) 12/20/19 12/20/19 12/20/19 05:26 06:02 18:17 WBC RBC Hgb Hct MCHC RDW MCH Lymph % (Auto) Clinch % (Auto) Clinch # Eos # Lymph # (Auto) Clinch # (Auto) Eos # (Auto) Seg Neutrophils % Seg Neuts % (Manual) Baso # (Auto) Lymphocytes % (Manual) Monocytes % (Manual) Eosinophils % (Manual) Basophils % (Manual) Seg Neutrophils # Seg Neutrophils # Man Lymphocytes # (Manual) Monocytes # (Manual) Eosinophils # (Manual) Nucleated RBC % Basophils # (Manual) APTT Heparin Anti-Xa Level 0.19 L ABG pH POC ABG pO2 ABG pO2 ABG HCO3 ABG O2 Saturation ABG Base Excess POC ABG pCO2 ABG Hemoglobin ABG Oxyhemoglobin Oxyhemoglobin Sodium Potassium Chloride Carbon Dioxide BUN Creatinine Glucose POC Glucose 137 H 128 H Lactic Acid Calcium Phosphorus Magnesium AST ALT Lactate Dehydrogenase CK-MB (CK-2) C-Reactive Protein NT-Pro-B Natriuret Pep Total Protein Albumin Urine WBC (Auto) 12/20/19 12/21/19 12/21/19 23:34 05:31 05:31 WBC 12.7 H RBC 3.09 L Hgb 8.9 L Hct 27.4 L MCHC RDW 15.8 H MCH Lymph % (Auto) 12.1 L Clinch % (Auto) 7.8 H Clinch # Eos # Lymph # (Auto) Clinch # (Auto) 1.0 H Eos # (Auto) Seg Neutrophils % 77.1 H Seg Neuts % (Manual) Baso # (Auto) Lymphocytes % (Manual) Monocytes % (Manual) Eosinophils % (Manual) Basophils % (Manual) Seg Neutrophils # 9.8 H Seg Neutrophils # Man Lymphocytes # (Manual) Monocytes # (Manual) Eosinophils # (Manual) Nucleated RBC % Basophils # (Manual) APTT Heparin Anti-Xa Level ABG pH POC ABG pO2 ABG pO2 ABG HCO3 ABG O2 Saturation ABG Base Excess POC ABG pCO2 ABG Hemoglobin ABG Oxyhemoglobin Oxyhemoglobin Sodium Potassium Chloride 96.9 L Carbon Dioxide 37 H BUN 27 H Creatinine 0.7 L Glucose 140 H POC Glucose 145 H Lactic Acid Calcium Phosphorus Magnesium AST ALT Lactate Dehydrogenase CK-MB (CK-2) C-Reactive Protein NT-Pro-B Natriuret Pep Total Protein Albumin Urine WBC (Auto) 12/21/19 12/21/19 12/21/19 05:38 10:13 11:51 WBC RBC Hgb Hct MCHC RDW MCH Lymph % (Auto) Clinch % (Auto) Clinch # Eos # Lymph # (Auto) Clinch # (Auto) Eos # (Auto) Seg Neutrophils % Seg Neuts % (Manual) Baso # (Auto) Lymphocytes % (Manual) Monocytes % (Manual) Eosinophils % (Manual) Basophils % (Manual) Seg Neutrophils # Seg Neutrophils # Man Lymphocytes # (Manual) Monocytes # (Manual) Eosinophils # (Manual) Nucleated RBC % Basophils # (Manual) APTT 23.9 L Heparin Anti-Xa Level < 0.10 L ABG pH POC ABG pO2 ABG pO2 ABG HCO3 ABG O2 Saturation ABG Base Excess POC ABG pCO2 ABG Hemoglobin ABG Oxyhemoglobin Oxyhemoglobin Sodium Potassium Chloride Carbon Dioxide BUN Creatinine Glucose POC Glucose 151 H 145 H Lactic Acid Calcium Phosphorus Magnesium AST ALT Lactate Dehydrogenase CK-MB (CK-2) C-Reactive Protein NT-Pro-B Natriuret Pep Total Protein Albumin Urine WBC (Auto) 12/21/19 12/22/19 12/22/19 17:16 00:01 01:33 WBC RBC Hgb Hct MCHC RDW MCH Lymph % (Auto) Clinch % (Auto) Clinch # Eos # Lymph # (Auto) Clinch # (Auto) Eos # (Auto) Seg Neutrophils % Seg Neuts % (Manual) Baso # (Auto) Lymphocytes % (Manual) Monocytes % (Manual) Eosinophils % (Manual) Basophils % (Manual) Seg Neutrophils # Seg Neutrophils # Man Lymphocytes # (Manual) Monocytes # (Manual) Eosinophils # (Manual) Nucleated RBC % Basophils # (Manual) APTT Heparin Anti-Xa Level 0.10 L ABG pH POC ABG pO2 ABG pO2 ABG HCO3 ABG O2 Saturation ABG Base Excess POC ABG pCO2 ABG Hemoglobin ABG Oxyhemoglobin Oxyhemoglobin Sodium Potassium Chloride Carbon Dioxide BUN Creatinine Glucose POC Glucose 167 H 179 H Lactic Acid Calcium Phosphorus Magnesium AST ALT Lactate Dehydrogenase CK-MB (CK-2) C-Reactive Protein NT-Pro-B Natriuret Pep Total Protein Albumin Urine WBC (Auto) 12/22/19 12/22/19 12/22/19 03:22 05:10 05:10 WBC 13.8 H RBC 3.20 L Hgb 8.9 L Hct 28.1 L MCHC RDW 15.9 H MCH Lymph % (Auto) Clinch % (Auto) Clinch # Eos # Lymph # (Auto) Clinch # (Auto) Eos # (Auto) Seg Neutrophils % Seg Neuts % (Manual) Baso # (Auto) Lymphocytes % (Manual) Monocytes % (Manual) Eosinophils % (Manual) Basophils % (Manual) Seg Neutrophils # Seg Neutrophils # Man Lymphocytes # (Manual) Monocytes # (Manual) Eosinophils # (Manual) Nucleated RBC % Basophils # (Manual) APTT Heparin Anti-Xa Level ABG pH POC ABG pO2 52.3 L ABG pO2 ABG HCO3 ABG O2 Saturation ABG Base Excess POC ABG pCO2 52.9 H ABG Hemoglobin 10.7 L ABG Oxyhemoglobin 84 L Oxyhemoglobin Sodium Potassium Chloride 96.6 L Carbon Dioxide BUN 25 H Creatinine 0.7 L Glucose 129 H POC Glucose Lactic Acid Calcium Phosphorus Magnesium AST ALT Lactate Dehydrogenase CK-MB (CK-2) C-Reactive Protein NT-Pro-B Natriuret Pep Total Protein Albumin Urine WBC (Auto) 12/22/19 12/22/19 12/22/19 05:18 12:32 12:43 WBC RBC Hgb Hct MCHC RDW MCH Lymph % (Auto) Clinch % (Auto) Clinch # Eos # Lymph # (Auto) Clinch # (Auto) Eos # (Auto) Seg Neutrophils % Seg Neuts % (Manual) Baso # (Auto) Lymphocytes % (Manual) Monocytes % (Manual) Eosinophils % (Manual) Basophils % (Manual) Seg Neutrophils # Seg Neutrophils # Man Lymphocytes # (Manual) Monocytes # (Manual) Eosinophils # (Manual) Nucleated RBC % Basophils # (Manual) APTT Heparin Anti-Xa Level 0.18 L ABG pH POC ABG pO2 ABG pO2 ABG HCO3 ABG O2 Saturation ABG Base Excess POC ABG pCO2 ABG Hemoglobin ABG Oxyhemoglobin Oxyhemoglobin Sodium Potassium Chloride Carbon Dioxide BUN Creatinine Glucose POC Glucose 131 H 208 H Lactic Acid Calcium Phosphorus Magnesium AST ALT Lactate Dehydrogenase CK-MB (CK-2) C-Reactive Protein NT-Pro-B Natriuret Pep Total Protein Albumin Urine WBC (Auto) 12/22/19 12/22/19 12/23/19 17:44 23:20 03:51 WBC 15.2 H RBC 3.43 L Hgb 9.6 L Hct 30.3 L MCHC RDW 15.9 H MCH Lymph % (Auto) Clinch % (Auto) Clinch # Eos # Lymph # (Auto) Clinch # (Auto) Eos # (Auto) Seg Neutrophils % Seg Neuts % (Manual) Baso # (Auto) Lymphocytes % (Manual) Monocytes % (Manual) Eosinophils % (Manual) Basophils % (Manual) Seg Neutrophils # Seg Neutrophils # Man Lymphocytes # (Manual) Monocytes # (Manual) Eosinophils # (Manual) Nucleated RBC % Basophils # (Manual) APTT Heparin Anti-Xa Level ABG pH POC ABG pO2 ABG pO2 ABG HCO3 ABG O2 Saturation ABG Base Excess POC ABG pCO2 ABG Hemoglobin ABG Oxyhemoglobin Oxyhemoglobin Sodium Potassium Chloride Carbon Dioxide BUN Creatinine Glucose POC Glucose 209 H 119 H Lactic Acid Calcium Phosphorus Magnesium AST ALT Lactate Dehydrogenase CK-MB (CK-2) C-Reactive Protein NT-Pro-B Natriuret Pep Total Protein Albumin Urine WBC (Auto) 12/23/19 12/23/19 12/23/19 03:51 05:31 12:09 WBC RBC Hgb Hct MCHC RDW MCH Lymph % (Auto) Clinch % (Auto) Clinch # Eos # Lymph # (Auto) Clinch # (Auto) Eos # (Auto) Seg Neutrophils % Seg Neuts % (Manual) Baso # (Auto) Lymphocytes % (Manual) Monocytes % (Manual) Eosinophils % (Manual) Basophils % (Manual) Seg Neutrophils # Seg Neutrophils # Man Lymphocytes # (Manual) Monocytes # (Manual) Eosinophils # (Manual) Nucleated RBC % Basophils # (Manual) APTT Heparin Anti-Xa Level ABG pH POC ABG pO2 ABG pO2 ABG HCO3 ABG O2 Saturation ABG Base Excess POC ABG pCO2 ABG Hemoglobin ABG Oxyhemoglobin Oxyhemoglobin Sodium Potassium Chloride 97.2 L Carbon Dioxide 31 H BUN 23 H Creatinine 0.6 L Glucose 153 H POC Glucose 149 H 144 H Lactic Acid Calcium Phosphorus Magnesium AST ALT Lactate Dehydrogenase CK-MB (CK-2) C-Reactive Protein NT-Pro-B Natriuret Pep Total Protein Albumin Urine WBC (Auto) 12/23/19 12/23/19 12/23/19 15:30 17:49 23:31 WBC RBC Hgb Hct MCHC RDW MCH Lymph % (Auto) Clinch % (Auto) Clinch # Eos # Lymph # (Auto) Clinch # (Auto) Eos # (Auto) Seg Neutrophils % Seg Neuts % (Manual) Baso # (Auto) Lymphocytes % (Manual) Monocytes % (Manual) Eosinophils % (Manual) Basophils % (Manual) Seg Neutrophils # Seg Neutrophils # Man Lymphocytes # (Manual) Monocytes # (Manual) Eosinophils # (Manual) Nucleated RBC % Basophils # (Manual) APTT Heparin Anti-Xa Level 0.21 L ABG pH POC ABG pO2 ABG pO2 ABG HCO3 ABG O2 Saturation ABG Base Excess POC ABG pCO2 ABG Hemoglobin ABG Oxyhemoglobin Oxyhemoglobin Sodium Potassium Chloride Carbon Dioxide BUN Creatinine Glucose POC Glucose 192 H 151 H Lactic Acid Calcium Phosphorus Magnesium AST ALT Lactate Dehydrogenase CK-MB (CK-2) C-Reactive Protein NT-Pro-B Natriuret Pep Total Protein Albumin Urine WBC (Auto) 12/24/19 12/24/19 12/24/19 05:34 12:13 16:50 WBC RBC Hgb Hct MCHC RDW MCH Lymph % (Auto) Clinch % (Auto) Clinch # Eos # Lymph # (Auto) Clinch # (Auto) Eos # (Auto) Seg Neutrophils % Seg Neuts % (Manual) Baso # (Auto) Lymphocytes % (Manual) Monocytes % (Manual) Eosinophils % (Manual) Basophils % (Manual) Seg Neutrophils # Seg Neutrophils # Man Lymphocytes # (Manual) Monocytes # (Manual) Eosinophils # (Manual) Nucleated RBC % Basophils # (Manual) APTT Heparin Anti-Xa Level 0.16 L ABG pH POC ABG pO2 ABG pO2 ABG HCO3 ABG O2 Saturation ABG Base Excess POC ABG pCO2 ABG Hemoglobin ABG Oxyhemoglobin Oxyhemoglobin Sodium Potassium Chloride Carbon Dioxide BUN Creatinine Glucose POC Glucose 145 H 124 H Lactic Acid Calcium Phosphorus Magnesium AST ALT Lactate Dehydrogenase CK-MB (CK-2) C-Reactive Protein NT-Pro-B Natriuret Pep Total Protein Albumin Urine WBC (Auto) 12/24/19 12/25/19 12/25/19 17:53 00:14 04:18 WBC 12.9 H RBC 3.30 L Hgb 9.1 L Hct 28.8 L MCHC RDW 16.4 H MCH Lymph % (Auto) Clinch % (Auto) 7.8 H Clinch # Eos # Lymph # (Auto) Clinch # (Auto) 1.0 H Eos # (Auto) Seg Neutrophils % 75.5 H Seg Neuts % (Manual) Baso # (Auto) Lymphocytes % (Manual) Monocytes % (Manual) Eosinophils % (Manual) Basophils % (Manual) Seg Neutrophils # 9.7 H Seg Neutrophils # Man Lymphocytes # (Manual) Monocytes # (Manual) Eosinophils # (Manual) Nucleated RBC % Basophils # (Manual) APTT Heparin Anti-Xa Level ABG pH POC ABG pO2 ABG pO2 ABG HCO3 ABG O2 Saturation ABG Base Excess POC ABG pCO2 ABG Hemoglobin ABG Oxyhemoglobin Oxyhemoglobin Sodium Potassium Chloride Carbon Dioxide BUN Creatinine Glucose POC Glucose 164 H 148 H Lactic Acid Calcium Phosphorus Magnesium AST ALT Lactate Dehydrogenase CK-MB (CK-2) C-Reactive Protein NT-Pro-B Natriuret Pep Total Protein Albumin Urine WBC (Auto) 12/25/19 12/25/19 12/25/19 04:18 05:38 11:44 WBC RBC Hgb Hct MCHC RDW MCH Lymph % (Auto) Clinch % (Auto) Clinch # Eos # Lymph # (Auto) Clinch # (Auto) Eos # (Auto) Seg Neutrophils % Seg Neuts % (Manual) Baso # (Auto) Lymphocytes % (Manual) Monocytes % (Manual) Eosinophils % (Manual) Basophils % (Manual) Seg Neutrophils # Seg Neutrophils # Man Lymphocytes # (Manual) Monocytes # (Manual) Eosinophils # (Manual) Nucleated RBC % Basophils # (Manual) APTT Heparin Anti-Xa Level ABG pH POC ABG pO2 ABG pO2 ABG HCO3 ABG O2 Saturation ABG Base Excess POC ABG pCO2 ABG Hemoglobin ABG Oxyhemoglobin Oxyhemoglobin Sodium Potassium Chloride Carbon Dioxide 33 H BUN 27 H Creatinine 0.6 L Glucose 132 H POC Glucose 152 H 166 H Lactic Acid Calcium Phosphorus Magnesium AST ALT Lactate Dehydrogenase CK-MB (CK-2) C-Reactive Protein NT-Pro-B Natriuret Pep Total Protein Albumin Urine WBC (Auto) 12/25/19 12/26/19 12/26/19 18:29 00:17 00:18 WBC RBC Hgb Hct MCHC RDW MCH Lymph % (Auto) Clinch % (Auto) Clinch # Eos # Lymph # (Auto) Clinch # (Auto) Eos # (Auto) Seg Neutrophils % Seg Neuts % (Manual) Baso # (Auto) Lymphocytes % (Manual) Monocytes % (Manual) Eosinophils % (Manual) Basophils % (Manual) Seg Neutrophils # Seg Neutrophils # Man Lymphocytes # (Manual) Monocytes # (Manual) Eosinophils # (Manual) Nucleated RBC % Basophils # (Manual) APTT Heparin Anti-Xa Level ABG pH POC ABG pO2 ABG pO2 ABG HCO3 ABG O2 Saturation ABG Base Excess POC ABG pCO2 ABG Hemoglobin ABG Oxyhemoglobin Oxyhemoglobin Sodium Potassium Chloride 97.8 L Carbon Dioxide BUN 25 H Creatinine 0.6 L Glucose 140 H POC Glucose 194 H 151 H Lactic Acid Calcium Phosphorus Magnesium AST ALT Lactate Dehydrogenase CK-MB (CK-2) C-Reactive Protein NT-Pro-B Natriuret Pep Total Protein Albumin Urine WBC (Auto) 12/26/19 12/26/19 12/26/19 05:36 11:41 17:50 WBC RBC Hgb Hct MCHC RDW MCH Lymph % (Auto) Clinch % (Auto) Clinch # Eos # Lymph # (Auto) Clinch # (Auto) Eos # (Auto) Seg Neutrophils % Seg Neuts % (Manual) Baso # (Auto) Lymphocytes % (Manual) Monocytes % (Manual) Eosinophils % (Manual) Basophils % (Manual) Seg Neutrophils # Seg Neutrophils # Man Lymphocytes # (Manual) Monocytes # (Manual) Eosinophils # (Manual) Nucleated RBC % Basophils # (Manual) APTT Heparin Anti-Xa Level ABG pH POC ABG pO2 ABG pO2 ABG HCO3 ABG O2 Saturation ABG Base Excess POC ABG pCO2 ABG Hemoglobin ABG Oxyhemoglobin Oxyhemoglobin Sodium Potassium Chloride Carbon Dioxide BUN Creatinine Glucose POC Glucose 156 H 148 H 139 H Lactic Acid Calcium Phosphorus Magnesium AST ALT Lactate Dehydrogenase CK-MB (CK-2) C-Reactive Protein NT-Pro-B Natriuret Pep Total Protein Albumin Urine WBC (Auto) 12/26/19 12/27/19 12/27/19 23:19 05:34 12:02 WBC RBC Hgb Hct MCHC RDW MCH Lymph % (Auto) Clinch % (Auto) Clinch # Eos # Lymph # (Auto) Clinch # (Auto) Eos # (Auto) Seg Neutrophils % Seg Neuts % (Manual) Baso # (Auto) Lymphocytes % (Manual) Monocytes % (Manual) Eosinophils % (Manual) Basophils % (Manual) Seg Neutrophils # Seg Neutrophils # Man Lymphocytes # (Manual) Monocytes # (Manual) Eosinophils # (Manual) Nucleated RBC % Basophils # (Manual) APTT Heparin Anti-Xa Level ABG pH POC ABG pO2 ABG pO2 ABG HCO3 ABG O2 Saturation ABG Base Excess POC ABG pCO2 ABG Hemoglobin ABG Oxyhemoglobin Oxyhemoglobin Sodium Potassium Chloride Carbon Dioxide BUN Creatinine Glucose POC Glucose 161 H 145 H 157 H Lactic Acid Calcium Phosphorus Magnesium AST ALT Lactate Dehydrogenase CK-MB (CK-2) C-Reactive Protein NT-Pro-B Natriuret Pep Total Protein Albumin Urine WBC (Auto) 12/27/19 12/27/19 12/27/19 17:35 20:11 23:00 WBC RBC Hgb Hct MCHC RDW MCH Lymph % (Auto) Clinch % (Auto) Clinch # Eos # Lymph # (Auto) Clinch # (Auto) Eos # (Auto) Seg Neutrophils % Seg Neuts % (Manual) Baso # (Auto) Lymphocytes % (Manual) Monocytes % (Manual) Eosinophils % (Manual) Basophils % (Manual) Seg Neutrophils # Seg Neutrophils # Man Lymphocytes # (Manual) Monocytes # (Manual) Eosinophils # (Manual) Nucleated RBC % Basophils # (Manual) APTT Heparin Anti-Xa Level 0.19 L ABG pH POC ABG pO2 ABG pO2 ABG HCO3 ABG O2 Saturation ABG Base Excess POC ABG pCO2 ABG Hemoglobin ABG Oxyhemoglobin Oxyhemoglobin Sodium Potassium Chloride Carbon Dioxide BUN Creatinine Glucose POC Glucose 158 H 155 H Lactic Acid Calcium Phosphorus Magnesium AST ALT Lactate Dehydrogenase CK-MB (CK-2) C-Reactive Protein NT-Pro-B Natriuret Pep Total Protein Albumin Urine WBC (Auto) 12/27/19 12/28/19 12/28/19 23:45 02:41 02:41 WBC 13.0 H RBC 3.48 L Hgb 9.5 L Hct 30.6 L MCHC 31 L RDW 16.6 H MCH 27 L Lymph % (Auto) 13.0 L Clinch % (Auto) 8.0 H Clinch # Eos # Lymph # (Auto) Clinch # (Auto) 1.0 H Eos # (Auto) Seg Neutrophils % 76.3 H Seg Neuts % (Manual) Baso # (Auto) Lymphocytes % (Manual) Monocytes % (Manual) Eosinophils % (Manual) Basophils % (Manual) Seg Neutrophils # 9.9 H Seg Neutrophils # Man Lymphocytes # (Manual) Monocytes # (Manual) Eosinophils # (Manual) Nucleated RBC % Basophils # (Manual) APTT Heparin Anti-Xa Level ABG pH POC ABG pO2 ABG pO2 ABG HCO3 ABG O2 Saturation ABG Base Excess POC ABG pCO2 ABG Hemoglobin ABG Oxyhemoglobin Oxyhemoglobin Sodium Potassium Chloride Carbon Dioxide BUN 22 H Creatinine 0.6 L Glucose 101 H POC Glucose 130 H Lactic Acid Calcium Phosphorus Magnesium AST ALT Lactate Dehydrogenase CK-MB (CK-2) C-Reactive Protein NT-Pro-B Natriuret Pep Total Protein Albumin Urine WBC (Auto) 12/28/19 12/28/19 12/28/19 06:00 12:34 18:13 WBC RBC Hgb Hct MCHC RDW MCH Lymph % (Auto) Clinch % (Auto) Clinch # Eos # Lymph # (Auto) Clinch # (Auto) Eos # (Auto) Seg Neutrophils % Seg Neuts % (Manual) Baso # (Auto) Lymphocytes % (Manual) Monocytes % (Manual) Eosinophils % (Manual) Basophils % (Manual) Seg Neutrophils # Seg Neutrophils # Man Lymphocytes # (Manual) Monocytes # (Manual) Eosinophils # (Manual) Nucleated RBC % Basophils # (Manual) APTT Heparin Anti-Xa Level ABG pH POC ABG pO2 ABG pO2 ABG HCO3 ABG O2 Saturation ABG Base Excess POC ABG pCO2 ABG Hemoglobin ABG Oxyhemoglobin Oxyhemoglobin Sodium Potassium Chloride Carbon Dioxide BUN Creatinine Glucose POC Glucose 150 H 161 H 128 H Lactic Acid Calcium Phosphorus Magnesium AST ALT Lactate Dehydrogenase CK-MB (CK-2) C-Reactive Protein NT-Pro-B Natriuret Pep Total Protein Albumin Urine WBC (Auto) 12/28/19 12/29/19 12/29/19 23:36 05:21 11:40 WBC RBC Hgb Hct MCHC RDW MCH Lymph % (Auto) Clinch % (Auto) Clinch # Eos # Lymph # (Auto) Clinch # (Auto) Eos # (Auto) Seg Neutrophils % Seg Neuts % (Manual) Baso # (Auto) Lymphocytes % (Manual) Monocytes % (Manual) Eosinophils % (Manual) Basophils % (Manual) Seg Neutrophils # Seg Neutrophils # Man Lymphocytes # (Manual) Monocytes # (Manual) Eosinophils # (Manual) Nucleated RBC % Basophils # (Manual) APTT Heparin Anti-Xa Level ABG pH POC ABG pO2 ABG pO2 ABG HCO3 ABG O2 Saturation ABG Base Excess POC ABG pCO2 ABG Hemoglobin ABG Oxyhemoglobin Oxyhemoglobin Sodium Potassium Chloride Carbon Dioxide BUN Creatinine Glucose POC Glucose 137 H 136 H 166 H Lactic Acid Calcium Phosphorus Magnesium AST ALT Lactate Dehydrogenase CK-MB (CK-2) C-Reactive Protein NT-Pro-B Natriuret Pep Total Protein Albumin Urine WBC (Auto) 12/29/19 12/29/19 12/29/19 17:23 19:21 23:38 WBC RBC Hgb Hct MCHC RDW MCH Lymph % (Auto) Clinch % (Auto) Clinch # Eos # Lymph # (Auto) Clinch # (Auto) Eos # (Auto) Seg Neutrophils % Seg Neuts % (Manual) Baso # (Auto) Lymphocytes % (Manual) Monocytes % (Manual) Eosinophils % (Manual) Basophils % (Manual) Seg Neutrophils # Seg Neutrophils # Man Lymphocytes # (Manual) Monocytes # (Manual) Eosinophils # (Manual) Nucleated RBC % Basophils # (Manual) APTT Heparin Anti-Xa Level 0.20 L ABG pH POC ABG pO2 ABG pO2 ABG HCO3 ABG O2 Saturation ABG Base Excess POC ABG pCO2 ABG Hemoglobin ABG Oxyhemoglobin Oxyhemoglobin Sodium Potassium Chloride Carbon Dioxide BUN Creatinine Glucose POC Glucose 144 H 141 H Lactic Acid Calcium Phosphorus Magnesium AST ALT Lactate Dehydrogenase CK-MB (CK-2) C-Reactive Protein NT-Pro-B Natriuret Pep Total Protein Albumin Urine WBC (Auto) 12/30/19 12/30/19 12/30/19 03:58 03:58 04:59 WBC RBC 3.54 L Hgb 9.8 L Hct 30.7 L MCHC RDW 16.8 H MCH Lymph % (Auto) Clinch % (Auto) Clinch # Eos # Lymph # (Auto) Clinch # (Auto) Eos # (Auto) Seg Neutrophils % Seg Neuts % (Manual) Baso # (Auto) Lymphocytes % (Manual) Monocytes % (Manual) Eosinophils % (Manual) Basophils % (Manual) Seg Neutrophils # Seg Neutrophils # Man Lymphocytes # (Manual) Monocytes # (Manual) Eosinophils # (Manual) Nucleated RBC % Basophils # (Manual) APTT Heparin Anti-Xa Level ABG pH POC ABG pO2 ABG pO2 ABG HCO3 29.8 H ABG O2 Saturation ABG Base Excess 4.8 H POC ABG pCO2 ABG Hemoglobin 11.2 L ABG Oxyhemoglobin Oxyhemoglobin 93.8 L Sodium Potassium Chloride 97.8 L Carbon Dioxide BUN 26 H Creatinine Glucose 168 H POC Glucose Lactic Acid Calcium Phosphorus Magnesium AST ALT Lactate Dehydrogenase CK-MB (CK-2) C-Reactive Protein NT-Pro-B Natriuret Pep Total Protein Albumin Urine WBC (Auto) 12/30/19 12/30/19 12/30/19 05:45 11:34 17:28 WBC RBC Hgb Hct MCHC RDW MCH Lymph % (Auto) Clinch % (Auto) Clinch # Eos # Lymph # (Auto) Clinch # (Auto) Eos # (Auto) Seg Neutrophils % Seg Neuts % (Manual) Baso # (Auto) Lymphocytes % (Manual) Monocytes % (Manual) Eosinophils % (Manual) Basophils % (Manual) Seg Neutrophils # Seg Neutrophils # Man Lymphocytes # (Manual) Monocytes # (Manual) Eosinophils # (Manual) Nucleated RBC % Basophils # (Manual) APTT Heparin Anti-Xa Level ABG pH POC ABG pO2 ABG pO2 ABG HCO3 ABG O2 Saturation ABG Base Excess POC ABG pCO2 ABG Hemoglobin ABG Oxyhemoglobin Oxyhemoglobin Sodium Potassium Chloride Carbon Dioxide BUN Creatinine Glucose POC Glucose 163 H 180 H 150 H Lactic Acid Calcium Phosphorus Magnesium AST ALT Lactate Dehydrogenase CK-MB (CK-2) C-Reactive Protein NT-Pro-B Natriuret Pep Total Protein Albumin Urine WBC (Auto) 12/30/19 12/31/19 12/31/19 23:43 04:55 05:07 WBC RBC Hgb Hct MCHC RDW MCH Lymph % (Auto) Clinch % (Auto) Clinch # Eos # Lymph # (Auto) Clinch # (Auto) Eos # (Auto) Seg Neutrophils % Seg Neuts % (Manual) Baso # (Auto) Lymphocytes % (Manual) Monocytes % (Manual) Eosinophils % (Manual) Basophils % (Manual) Seg Neutrophils # Seg Neutrophils # Man Lymphocytes # (Manual) Monocytes # (Manual) Eosinophils # (Manual) Nucleated RBC % Basophils # (Manual) APTT Heparin Anti-Xa Level ABG pH POC ABG pO2 ABG pO2 ABG HCO3 ABG O2 Saturation ABG Base Excess POC ABG pCO2 ABG Hemoglobin ABG Oxyhemoglobin Oxyhemoglobin Sodium Potassium 5.6 H D Chloride Carbon Dioxide BUN 33 H Creatinine Glucose 131 H POC Glucose 142 H 134 H Lactic Acid Calcium Phosphorus Magnesium AST ALT Lactate Dehydrogenase CK-MB (CK-2) C-Reactive Protein NT-Pro-B Natriuret Pep Total Protein Albumin Urine WBC (Auto) 12/31/19 12/31/19 12/31/19 11:30 17:19 17:36 WBC RBC Hgb Hct MCHC RDW MCH Lymph % (Auto) Clinch % (Auto) Clinch # Eos # Lymph # (Auto) Clinch # (Auto) Eos # (Auto) Seg Neutrophils % Seg Neuts % (Manual) Baso # (Auto) Lymphocytes % (Manual) Monocytes % (Manual) Eosinophils % (Manual) Basophils % (Manual) Seg Neutrophils # Seg Neutrophils # Man Lymphocytes # (Manual) Monocytes # (Manual) Eosinophils # (Manual) Nucleated RBC % Basophils # (Manual) APTT Heparin Anti-Xa Level ABG pH POC ABG pO2 ABG pO2 ABG HCO3 ABG O2 Saturation ABG Base Excess POC ABG pCO2 ABG Hemoglobin ABG Oxyhemoglobin Oxyhemoglobin Sodium Potassium Chloride Carbon Dioxide BUN 35 H Creatinine Glucose 156 H POC Glucose 158 H 181 H Lactic Acid Calcium Phosphorus Magnesium AST ALT Lactate Dehydrogenase CK-MB (CK-2) C-Reactive Protein NT-Pro-B Natriuret Pep Total Protein Albumin Urine WBC (Auto) 12/31/19 12/31/19 12/31/19 18:16 19:41 21:53 WBC RBC Hgb Hct MCHC RDW MCH Lymph % (Auto) Clinch % (Auto) Clinch # Eos # Lymph # (Auto) Clinch # (Auto) Eos # (Auto) Seg Neutrophils % Seg Neuts % (Manual) Baso # (Auto) Lymphocytes % (Manual) Monocytes % (Manual) Eosinophils % (Manual) Basophils % (Manual) Seg Neutrophils # Seg Neutrophils # Man Lymphocytes # (Manual) Monocytes # (Manual) Eosinophils # (Manual) Nucleated RBC % Basophils # (Manual) APTT Heparin Anti-Xa Level 0.20 L ABG pH POC ABG pO2 ABG pO2 ABG HCO3 ABG O2 Saturation ABG Base Excess POC ABG pCO2 ABG Hemoglobin ABG Oxyhemoglobin Oxyhemoglobin Sodium Potassium Chloride Carbon Dioxide BUN 34 H Creatinine Glucose 169 H POC Glucose 141 H Lactic Acid Calcium Phosphorus Magnesium AST ALT Lactate Dehydrogenase CK-MB (CK-2) C-Reactive Protein NT-Pro-B Natriuret Pep Total Protein Albumin Urine WBC (Auto) 12/31/19 01/01/20 01/01/20 23:51 05:17 10:40 WBC RBC Hgb Hct MCHC RDW MCH Lymph % (Auto) Clinch % (Auto) Clinch # Eos # Lymph # (Auto) Clinch # (Auto) Eos # (Auto) Seg Neutrophils % Seg Neuts % (Manual) Baso # (Auto) Lymphocytes % (Manual) Monocytes % (Manual) Eosinophils % (Manual) Basophils % (Manual) Seg Neutrophils # Seg Neutrophils # Man Lymphocytes # (Manual) Monocytes # (Manual) Eosinophils # (Manual) Nucleated RBC % Basophils # (Manual) APTT Heparin Anti-Xa Level ABG pH POC ABG pO2 ABG pO2 ABG HCO3 ABG O2 Saturation ABG Base Excess POC ABG pCO2 ABG Hemoglobin ABG Oxyhemoglobin Oxyhemoglobin Sodium Potassium Chloride Carbon Dioxide BUN 31 H Creatinine 0.7 L Glucose 137 H POC Glucose 131 H 155 H Lactic Acid Calcium Phosphorus Magnesium AST 73 H ALT 97 H Lactate Dehydrogenase CK-MB (CK-2) C-Reactive Protein NT-Pro-B Natriuret Pep 3866 H Total Protein Albumin 2.8 L Urine WBC (Auto) 01/01/20 01/01/20 01/01/20 12:26 15:33 17:53 WBC 14.3 H RBC 3.35 L Hgb 9.1 L Hct 28.8 L MCHC RDW 17.0 H MCH 27 L Lymph % (Auto) 7.0 L Clinch % (Auto) 7.6 H Clinch # Eos # Lymph # (Auto) 1.0 L Clinch # (Auto) 1.1 H Eos # (Auto) Seg Neutrophils % 83.3 H Seg Neuts % (Manual) Baso # (Auto) Lymphocytes % (Manual) Monocytes % (Manual) Eosinophils % (Manual) Basophils % (Manual) Seg Neutrophils # 12.0 H Seg Neutrophils # Man Lymphocytes # (Manual) Monocytes # (Manual) Eosinophils # (Manual) Nucleated RBC % Basophils # (Manual) APTT Heparin Anti-Xa Level ABG pH POC ABG pO2 ABG pO2 ABG HCO3 ABG O2 Saturation ABG Base Excess POC ABG pCO2 ABG Hemoglobin ABG Oxyhemoglobin Oxyhemoglobin Sodium Potassium Chloride Carbon Dioxide BUN Creatinine Glucose POC Glucose 128 H 128 H Lactic Acid Calcium Phosphorus Magnesium AST ALT Lactate Dehydrogenase CK-MB (CK-2) C-Reactive Protein NT-Pro-B Natriuret Pep Total Protein Albumin Urine WBC (Auto) 01/01/20 01/02/20 01/02/20 23:04 05:39 07:00 WBC RBC Hgb Hct MCHC RDW MCH Lymph % (Auto) Clinch % (Auto) Clinch # Eos # Lymph # (Auto) Clinch # (Auto) Eos # (Auto) Seg Neutrophils % Seg Neuts % (Manual) Baso # (Auto) Lymphocytes % (Manual) Monocytes % (Manual) Eosinophils % (Manual) Basophils % (Manual) Seg Neutrophils # Seg Neutrophils # Man Lymphocytes # (Manual) Monocytes # (Manual) Eosinophils # (Manual) Nucleated RBC % Basophils # (Manual) APTT Heparin Anti-Xa Level 0.13 L ABG pH POC ABG pO2 ABG pO2 ABG HCO3 ABG O2 Saturation ABG Base Excess POC ABG pCO2 ABG Hemoglobin ABG Oxyhemoglobin Oxyhemoglobin Sodium Potassium Chloride Carbon Dioxide BUN Creatinine Glucose POC Glucose 120 H 169 H Lactic Acid Calcium Phosphorus Magnesium AST ALT Lactate Dehydrogenase CK-MB (CK-2) C-Reactive Protein NT-Pro-B Natriuret Pep Total Protein Albumin Urine WBC (Auto) 01/02/20 01/02/20 01/02/20 12:15 14:06 17:58 WBC RBC Hgb Hct MCHC RDW MCH Lymph % (Auto) Clinch % (Auto) Clinch # Eos # Lymph # (Auto) Clinch # (Auto) Eos # (Auto) Seg Neutrophils % Seg Neuts % (Manual) Baso # (Auto) Lymphocytes % (Manual) Monocytes % (Manual) Eosinophils % (Manual) Basophils % (Manual) Seg Neutrophils # Seg Neutrophils # Man Lymphocytes # (Manual) Monocytes # (Manual) Eosinophils # (Manual) Nucleated RBC % Basophils # (Manual) APTT Heparin Anti-Xa Level < 0.10 L ABG pH POC ABG pO2 ABG pO2 ABG HCO3 ABG O2 Saturation ABG Base Excess POC ABG pCO2 ABG Hemoglobin ABG Oxyhemoglobin Oxyhemoglobin Sodium Potassium Chloride Carbon Dioxide BUN Creatinine Glucose POC Glucose 190 H 198 H Lactic Acid Calcium Phosphorus Magnesium AST ALT Lactate Dehydrogenase CK-MB (CK-2) C-Reactive Protein NT-Pro-B Natriuret Pep Total Protein Albumin Urine WBC (Auto) 01/02/20 01/02/20 01/03/20 21:43 23:33 05:42 WBC RBC Hgb Hct MCHC RDW MCH Lymph % (Auto) Clinch % (Auto) Clinch # Eos # Lymph # (Auto) Clinch # (Auto) Eos # (Auto) Seg Neutrophils % Seg Neuts % (Manual) Baso # (Auto) Lymphocytes % (Manual) Monocytes % (Manual) Eosinophils % (Manual) Basophils % (Manual) Seg Neutrophils # Seg Neutrophils # Man Lymphocytes # (Manual) Monocytes # (Manual) Eosinophils # (Manual) Nucleated RBC % Basophils # (Manual) APTT Heparin Anti-Xa Level 0.10 L ABG pH POC ABG pO2 ABG pO2 ABG HCO3 ABG O2 Saturation ABG Base Excess POC ABG pCO2 ABG Hemoglobin ABG Oxyhemoglobin Oxyhemoglobin Sodium Potassium Chloride Carbon Dioxide BUN Creatinine Glucose POC Glucose 180 H 163 H Lactic Acid Calcium Phosphorus Magnesium AST ALT Lactate Dehydrogenase CK-MB (CK-2) C-Reactive Protein NT-Pro-B Natriuret Pep Total Protein Albumin Urine WBC (Auto) 01/03/20 01/03/20 01/03/20 06:50 07:25 07:45 WBC 12.1 H RBC 3.35 L Hgb 9.0 L Hct 28.9 L MCHC 31 L RDW 16.6 H MCH 27 L Lymph % (Auto) 13.0 L Clinch % (Auto) 8.6 H Clinch # Eos # Lymph # (Auto) Clinch # (Auto) 1.0 H Eos # (Auto) Seg Neutrophils % 75.9 H Seg Neuts % (Manual) Baso # (Auto) Lymphocytes % (Manual) Monocytes % (Manual) Eosinophils % (Manual) Basophils % (Manual) Seg Neutrophils # 9.2 H Seg Neutrophils # Man Lymphocytes # (Manual) Monocytes # (Manual) Eosinophils # (Manual) Nucleated RBC % Basophils # (Manual) APTT Heparin Anti-Xa Level 0.29 L ABG pH POC ABG pO2 ABG pO2 ABG HCO3 ABG O2 Saturation ABG Base Excess POC ABG pCO2 ABG Hemoglobin ABG Oxyhemoglobin Oxyhemoglobin Sodium Potassium 3.3 L D Chloride Carbon Dioxide 35 H D BUN 23 H Creatinine 0.6 L Glucose 149 H POC Glucose Lactic Acid Calcium Phosphorus Magnesium AST ALT 88 H Lactate Dehydrogenase CK-MB (CK-2) C-Reactive Protein NT-Pro-B Natriuret Pep Total Protein 6.2 L Albumin 2.9 L Urine WBC (Auto) 01/03/20 01/03/20 01/03/20 12:05 17:42 18:30 WBC RBC Hgb Hct MCHC RDW MCH Lymph % (Auto) Clinch % (Auto) Clinch # Eos # Lymph # (Auto) Clinch # (Auto) Eos # (Auto) Seg Neutrophils % Seg Neuts % (Manual) Baso # (Auto) Lymphocytes % (Manual) Monocytes % (Manual) Eosinophils % (Manual) Basophils % (Manual) Seg Neutrophils # Seg Neutrophils # Man Lymphocytes # (Manual) Monocytes # (Manual) Eosinophils # (Manual) Nucleated RBC % Basophils # (Manual) APTT Heparin Anti-Xa Level ABG pH POC ABG pO2 ABG pO2 70.7 L ABG HCO3 36.1 H ABG O2 Saturation 94.4 L ABG Base Excess 10.0 H POC ABG pCO2 ABG Hemoglobin 9.7 L ABG Oxyhemoglobin Oxyhemoglobin 91.8 L Sodium Potassium Chloride Carbon Dioxide BUN Creatinine Glucose POC Glucose 128 H 132 H Lactic Acid Calcium Phosphorus Magnesium AST ALT Lactate Dehydrogenase CK-MB (CK-2) C-Reactive Protein NT-Pro-B Natriuret Pep Total Protein Albumin Urine WBC (Auto) 01/04/20 01/04/20 01/04/20 00:10 04:26 05:23 WBC RBC Hgb Hct MCHC RDW MCH Lymph % (Auto) Clinch % (Auto) Clinch # Eos # Lymph # (Auto) Clinch # (Auto) Eos # (Auto) Seg Neutrophils % Seg Neuts % (Manual) Baso # (Auto) Lymphocytes % (Manual) Monocytes % (Manual) Eosinophils % (Manual) Basophils % (Manual) Seg Neutrophils # Seg Neutrophils # Man Lymphocytes # (Manual) Monocytes # (Manual) Eosinophils # (Manual) Nucleated RBC % Basophils # (Manual) APTT Heparin Anti-Xa Level 0.16 L ABG pH POC ABG pO2 ABG pO2 ABG HCO3 ABG O2 Saturation ABG Base Excess POC ABG pCO2 ABG Hemoglobin ABG Oxyhemoglobin Oxyhemoglobin Sodium Potassium Chloride Carbon Dioxide BUN Creatinine Glucose POC Glucose 121 H 119 H Lactic Acid Calcium Phosphorus Magnesium AST ALT Lactate Dehydrogenase CK-MB (CK-2) C-Reactive Protein NT-Pro-B Natriuret Pep Total Protein Albumin Urine WBC (Auto) 01/04/20 01/04/20 01/04/20 09:50 09:50 12:18 WBC 15.4 H RBC 3.30 L Hgb 8.7 L Hct 28.2 L MCHC 31 L RDW 17.0 H MCH 26 L Lymph % (Auto) Clinch % (Auto) 7.6 H Clinch # Eos # Lymph # (Auto) Clinch # (Auto) 1.2 H Eos # (Auto) Seg Neutrophils % 75.4 H Seg Neuts % (Manual) Baso # (Auto) Lymphocytes % (Manual) Monocytes % (Manual) Eosinophils % (Manual) Basophils % (Manual) Seg Neutrophils # 11.6 H Seg Neutrophils # Man Lymphocytes # (Manual) Monocytes # (Manual) Eosinophils # (Manual) Nucleated RBC % Basophils # (Manual) APTT Heparin Anti-Xa Level ABG pH POC ABG pO2 ABG pO2 ABG HCO3 ABG O2 Saturation ABG Base Excess POC ABG pCO2 ABG Hemoglobin ABG Oxyhemoglobin Oxyhemoglobin Sodium 148 H Potassium 3.5 L Chloride Carbon Dioxide 32 H BUN Creatinine 0.6 L Glucose 114 H POC Glucose 111 H Lactic Acid Calcium Phosphorus Magnesium AST ALT 59 H Lactate Dehydrogenase CK-MB (CK-2) C-Reactive Protein NT-Pro-B Natriuret Pep Total Protein Albumin 2.6 L Urine WBC (Auto) 01/05/20 01/05/20 01/05/20 04:05 04:05 05:19 WBC 11.7 H RBC 3.50 L Hgb 9.3 L Hct 29.9 L MCHC 31 L RDW 16.6 H MCH 27 L Lymph % (Auto) 13.1 L Clinch % (Auto) 9.7 H Clinch # Eos # Lymph # (Auto) Clinch # (Auto) 1.1 H Eos # (Auto) Seg Neutrophils % 74.0 H Seg Neuts % (Manual) Baso # (Auto) Lymphocytes % (Manual) Monocytes % (Manual) Eosinophils % (Manual) Basophils % (Manual) Seg Neutrophils # 8.6 H Seg Neutrophils # Man Lymphocytes # (Manual) Monocytes # (Manual) Eosinophils # (Manual) Nucleated RBC % Basophils # (Manual) APTT Heparin Anti-Xa Level ABG pH POC ABG pO2 ABG pO2 ABG HCO3 ABG O2 Saturation ABG Base Excess POC ABG pCO2 ABG Hemoglobin ABG Oxyhemoglobin Oxyhemoglobin Sodium 151 H Potassium Chloride Carbon Dioxide 34 H BUN Creatinine 0.7 L Glucose POC Glucose 112 H Lactic Acid Calcium Phosphorus Magnesium AST ALT 59 H Lactate Dehydrogenase CK-MB (CK-2) C-Reactive Protein NT-Pro-B Natriuret Pep Total Protein 5.8 L Albumin 2.6 L Urine WBC (Auto) 01/05/20 01/06/20 01/06/20 16:04 00:23 04:44 WBC RBC 3.36 L Hgb 8.9 L Hct 28.7 L MCHC 31 L RDW 16.9 H MCH 26 L Lymph % (Auto) Clinch % (Auto) 9.4 H Clinch # Eos # Lymph # (Auto) Clinch # (Auto) Eos # (Auto) Seg Neutrophils % Seg Neuts % (Manual) Baso # (Auto) Lymphocytes % (Manual) Monocytes % (Manual) Eosinophils % (Manual) Basophils % (Manual) Seg Neutrophils # Seg Neutrophils # Man Lymphocytes # (Manual) Monocytes # (Manual) Eosinophils # (Manual) Nucleated RBC % Basophils # (Manual) APTT Heparin Anti-Xa Level ABG pH POC ABG pO2 ABG pO2 ABG HCO3 ABG O2 Saturation ABG Base Excess POC ABG pCO2 ABG Hemoglobin ABG Oxyhemoglobin Oxyhemoglobin Sodium 151 H Potassium 3.2 L Chloride Carbon Dioxide 34 H BUN Creatinine 0.6 L Glucose POC Glucose 107 H Lactic Acid Calcium Phosphorus Magnesium AST ALT Lactate Dehydrogenase CK-MB (CK-2) C-Reactive Protein NT-Pro-B Natriuret Pep Total Protein Albumin Urine WBC (Auto) 01/06/20 01/06/20 01/06/20 04:44 05:33 12:04 WBC RBC Hgb Hct MCHC RDW MCH Lymph % (Auto) Clinch % (Auto) Clinch # Eos # Lymph # (Auto) Clinch # (Auto) Eos # (Auto) Seg Neutrophils % Seg Neuts % (Manual) Baso # (Auto) Lymphocytes % (Manual) Monocytes % (Manual) Eosinophils % (Manual) Basophils % (Manual) Seg Neutrophils # Seg Neutrophils # Man Lymphocytes # (Manual) Monocytes # (Manual) Eosinophils # (Manual) Nucleated RBC % Basophils # (Manual) APTT Heparin Anti-Xa Level ABG pH POC ABG pO2 ABG pO2 ABG HCO3 ABG O2 Saturation ABG Base Excess POC ABG pCO2 ABG Hemoglobin ABG Oxyhemoglobin Oxyhemoglobin Sodium 151 H Potassium 3.4 L Chloride Carbon Dioxide 33 H BUN Creatinine 0.6 L Glucose 118 H POC Glucose 118 H 123 H Lactic Acid Calcium Phosphorus Magnesium AST ALT Lactate Dehydrogenase CK-MB (CK-2) C-Reactive Protein NT-Pro-B Natriuret Pep Total Protein 6.2 L Albumin 2.6 L Urine WBC (Auto) 01/06/20 01/07/20 01/07/20 17:54 00:06 04:10 WBC RBC 3.42 L Hgb 8.9 L Hct 29.0 L MCHC 31 L RDW 17.1 H MCH 26 L Lymph % (Auto) Clinch % (Auto) 8.4 H Clinch # Eos # Lymph # (Auto) Clinch # (Auto) Eos # (Auto) Seg Neutrophils % Seg Neuts % (Manual) Baso # (Auto) Lymphocytes % (Manual) Monocytes % (Manual) Eosinophils % (Manual) Basophils % (Manual) Seg Neutrophils # Seg Neutrophils # Man Lymphocytes # (Manual) Monocytes # (Manual) Eosinophils # (Manual) Nucleated RBC % Basophils # (Manual) APTT Heparin Anti-Xa Level ABG pH POC ABG pO2 ABG pO2 ABG HCO3 ABG O2 Saturation ABG Base Excess POC ABG pCO2 ABG Hemoglobin ABG Oxyhemoglobin Oxyhemoglobin Sodium Potassium Chloride Carbon Dioxide BUN Creatinine Glucose POC Glucose 112 H 126 H Lactic Acid Calcium Phosphorus Magnesium AST ALT Lactate Dehydrogenase CK-MB (CK-2) C-Reactive Protein NT-Pro-B Natriuret Pep Total Protein Albumin Urine WBC (Auto) 01/07/20 01/07/20 04:10 05:59 WBC RBC Hgb Hct MCHC RDW MCH Lymph % (Auto) Clinch % (Auto) Clinch # Eos # Lymph # (Auto) Clinch # (Auto) Eos # (Auto) Seg Neutrophils % Seg Neuts % (Manual) Baso # (Auto) Lymphocytes % (Manual) Monocytes % (Manual) Eosinophils % (Manual) Basophils % (Manual) Seg Neutrophils # Seg Neutrophils # Man Lymphocytes # (Manual) Monocytes # (Manual) Eosinophils # (Manual) Nucleated RBC % Basophils # (Manual) APTT Heparin Anti-Xa Level ABG pH POC ABG pO2 ABG pO2 ABG HCO3 ABG O2 Saturation ABG Base Excess POC ABG pCO2 ABG Hemoglobin ABG Oxyhemoglobin Oxyhemoglobin Sodium 153 H Potassium 3.5 L Chloride Carbon Dioxide 34 H BUN Creatinine 0.6 L Glucose 121 H POC Glucose 121 H Lactic Acid Calcium Phosphorus Magnesium AST ALT Lactate Dehydrogenase CK-MB (CK-2) C-Reactive Protein NT-Pro-B Natriuret Pep Total Protein 5.9 L Albumin 2.4 L Urine WBC (Auto) Chest x-ray: image reviewed (Persitent alveolar infiltrars, slowly improving) Allied health notes reviewed: RT
--- NOTE | 2020-01-07 11:11 | XRay Report ---
ABDOMINAL SERIES WITH CHEST X-RAY ONE VIEW HISTORY: Partial small bowel obstruction COMPARISON: AP abdomen 01/05/2020 IMPRESSION: Single view of the chest demonstrates scattered bilateral lung opacities concerning for viral infecti on or congestive changes. No consolidation or pleural effusion. Heart size is normal. Tracheostomy is in place. Supine and upright views the abdomen demonstrate mild improvement in the dilated small bowel in the m idabdomen. There is normal gas and stool in the colon. PEG tube remains in the same position. Nasogas tric tube terminates in the distal stomach or just within the duodenum. No new acute process is appre ciated. Signer Name: Nicholas St Jr, MD Signed: 01/07/2020 11:06 AM Workstation Name: [id number]
--- NOTE | 2020-01-07 13:32 | Progress Note ---
Assessment and Plan 64 yoM with pSBO vs ileus Obs series - mild improvement in small bowel distension in mid abdomen, normal gas/stool pattern in colon. NGT in duodenum Pt stable. G tube output recorded at 250cc over 24 hours, bilious. NGT output not recorded. No f/c, WBC within normal limits Pt with hx of exlap in past. 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 continue NGT to LIWS 2. continue PEG to gravity 3. suppository daily 4. hold TF, gentle IVF 5. monitor lytes and replace as needed Patient's updated over the telephone. Will follow Thank you. Please call with questions. Subjective Date of service: 01/07/20 Narrative: Pt seen and examined. No acute complaints or overnight events. No f/c. No n/v. Asking for water. Now off vent and on tpiece via trach. Denies flatus and no BM per RN and I/O records. Objective Vital Signs - 12hr 01/07/20 01/07/20 01/07/20 01:30 02:01 02:30 Temperature Pulse Rate 71 87 84 Pulse Rate [ From Monitor] Respiratory 22 21 20 Rate Blood Pressure 104/67 104/67 130/81 O2 Sat by Pulse 96 95 Oximetry O2 Sat by Pulse Oximetry [ Assessment] 01/07/20 01/07/20 01/07/20 03:00 03:30 04:00 Temperature 98.8 F Pulse Rate 80 74 73 Pulse Rate [ 74 From Monitor] Respiratory 19 19 26 H Rate Blood Pressure 114/65 99/59 95/56 O2 Sat by Pulse 97 98 100 Oximetry O2 Sat by Pulse Oximetry [ Assessment] 01/07/20 01/07/20 01/07/20 04:06 04:30 05:00 Temperature 98.8 F Pulse Rate 75 81 82 Pulse Rate [ From Monitor] Respiratory 14 17 Rate Blood Pressure 95/56 103/67 111/71 O2 Sat by Pulse 99 100 98 Oximetry O2 Sat by Pulse Oximetry [ Assessment] 01/07/20 01/07/20 01/07/20 05:30 06:00 06:30 Temperature Pulse Rate 79 81 76 Pulse Rate [ From Monitor] Respiratory 20 20 18 Rate Blood Pressure 111/70 107/76 112/73 O2 Sat by Pulse 98 98 96 Oximetry O2 Sat by Pulse Oximetry [ Assessment] 01/07/20 01/07/20 01/07/20 07:00 07:23 07:31 Temperature Pulse Rate 77 84 81 Pulse Rate [ From Monitor] Respiratory 21 6 L 20 Rate Blood Pressure 105/68 136/91 136/91 O2 Sat by Pulse 95 100 99 Oximetry O2 Sat by Pulse Oximetry [ Assessment] 01/07/20 01/07/20 01/07/20 07:39 08:00 08:11 Temperature 98.3 F Pulse Rate 85 83 Pulse Rate [ 85 From Monitor] Respiratory 17 11 L Rate Blood Pressure 133/82 133/82 O2 Sat by Pulse 100 100 Oximetry O2 Sat by Pulse 100 Oximetry [ Assessment] 01/07/20 01/07/20 01/07/20 08:30 09:00 09:30 Temperature Pulse Rate 82 86 81 Pulse Rate [ From Monitor] Respiratory 21 23 20 Rate Blood Pressure 130/80 120/88 124/78 O2 Sat by Pulse 99 99 99 Oximetry O2 Sat by Pulse Oximetry [ Assessment] 01/07/20 01/07/20 01/07/20 10:00 10:31 11:01 Temperature Pulse Rate 79 84 81 Pulse Rate [ From Monitor] Respiratory 19 20 19 Rate Blood Pressure 119/77 141/98 150/98 O2 Sat by Pulse 99 99 97 Oximetry O2 Sat by Pulse Oximetry [ Assessment] - General physical appearance Narrative Exam: Gen: Awake and alert. NAD ENT: trach in place. site c/d/i CV: S1, S2+ Resp: CTAB Abd: soft, ND, NT. hypoactive but present bowel sounds in all 4 quadrants. - Labs 01/07/20 04:10 01/07/20 04:10 Diabetes panel 01/07/20 Range/Units 04:10 Sodium 153 H (137-145) mmol/L Potassium 3.5 L (3.6-5.0) mmol/L Chloride 106.9 (98-107) mmol/L Carbon Dioxide 34 H (22-30) mmol/L BUN 13 (9-20) mg/dL Creatinine 0.6 L (0.8-1.3) mg/dL Glucose 121 H (75-100) mg/dL Calcium 9.3 (8.4-10.2) mg/dL AST 11 (5-40) units/L ALT 31 (7-56) units/L Alkaline Phosphatase 53 (35-129) units/L Total Protein 5.9 L (6.3-8.2) g/dL Albumin 2.4 L (3.9-5) g/dL Calcium panel 01/07/20 Range/Units 04:10 Calcium 9.3 (8.4-10.2) mg/dL Albumin 2.4 L (3.9-5) g/dL Pituitary panel 01/07/20 Range/Units 04:10 Sodium 153 H (137-145) mmol/L Potassium 3.5 L (3.6-5.0) mmol/L Chloride 106.9 (98-107) mmol/L Carbon Dioxide 34 H (22-30) mmol/L BUN 13 (9-20) mg/dL Creatinine 0.6 L (0.8-1.3) mg/dL Glucose 121 H (75-100) mg/dL Calcium 9.3 (8.4-10.2) mg/dL Adrenal panel 01/07/20 Range/Units 04:10 Sodium 153 H (137-145) mmol/L Potassium 3.5 L (3.6-5.0) mmol/L Chloride 106.9 (98-107) mmol/L Carbon Dioxide 34 H (22-30) mmol/L BUN 13 (9-20) mg/dL Creatinine 0.6 L (0.8-1.3) mg/dL Glucose 121 H (75-100) mg/dL Calcium 9.3 (8.4-10.2) mg/dL Total Bilirubin 0.50 (0.1-1.2) mg/dL AST 11 (5-40) units/L ALT 31 (7-56) units/L Alkaline Phosphatase 53 (35-129) units/L Total Protein 5.9 L (6.3-8.2) g/dL Albumin 2.4 L (3.9-5) g/dL
[2020-01-07] MEDS: METOPROLOL TARTRATE 5 MG/5 ML INJ IV SCH ×2 (14:19→21:06)
--- NOTE | 2020-01-07 14:44 | Progress Note ---
Assessment and Plan -Partial SBO -Acute LLL PE -Acute RLE DVT -Persistent fevers; secondary to sepsis and acute PE/DVT -Severe sepsis; secondary to bilateral pneumonia, persistent fevers -Acute hypoxemic respiratory failure, on vent unable to wean -Bilateral pneumonia, community acquired, -Aspiration Pneumonia -Sustained SVT, on amiodarone -Acute on chronic systolic congestive heart failure -History of cerebrovascular accident. -Tobacco use disorder -Alcohol abuse with DT -Acute chronic obstructive pulmonary disease exacerbation. -Hypertension and hypertensive urgency at presentation. -History of arthritis. -Paroxysmal atrial fibrillation -Leukocytosis with possible sepsis. -Lactic acidosis. -Bleeding from ET tube -Oropharyngeal dysphagia -S/P Knee surgery -History of peptic Ulcer Surgery -DVT prophylaxis COVID-19 test; 11/24/2019; negative 11/26/2019; negative Plan Continue ventilatory support - Now s/p trach and PEG Aspiration precautions Continue to adjust amiodarone and metoprolol for suppression of paroxysmal atri al fibrillation. Continue anticoagulation Started back on vancomycin and zosyn BC 03/28 - coag negative staph ?contaminant. Sputum cultures pending. Low-dose Lasix as needed DVT/GI prophy Heparin/Protonix Plan of care reviewed with the patient's nurse BS consulted for partial SBO Closely monitor the patient and adjust management as needed The high probability of a clinically significant, sudden or life threatening deterioration of the [Respiratory, cardiovascular & neurological] system(s) required my full and direct attention, intervention and personal management. The aggregate critical care time was [33] minutes without overlap. Time includes spent on [x] Data Review and interpretation [x] Patient assessment and monitoring of vital signs [x] Documentation [x] Medication orders and management Brief History Patient is a 64-year-old male with known history of hypertension, COPD, history of coronary artery disease, CHF with ejection fraction of 20 to 25% in August 2018 presenting to the emergency room via EMS complaining of shortness of breath. Patient was found to be hypoxic and in respiratory distress. Patient was placed on CPAP in route to the hospital. Oxygen saturation was said to be 88%. Started on Solu-Medrol, Lasix and magnesium in ED, patient was also found to be lethargic with an oxygen saturation of about 91% on CPAP. He was subsequently intubated. Work-up in the emergency room including chest x-ray reveals bilateral pneumonia. He had an elevated white count of 14 and also had an elevated BNP. Patient admitted to the ICU and placed on empiric IV antibiotics for pneumonia. He tested negative for COVID-19 and placed on isolation precautions. Remains intubated on ventilatory support, sputum cultures positive for Pseudomonas, ID treated with cefepime and Vanco. His hospital course became complicated with acute PE, DVT, paroxysmal atrial fib - placed on chronic anticoagulation. Patient was difficult to wean off, status post trach and PEG, remains on mechanical ventilation with trach tube. He now developed partial small bowel obstruction and not tolerating tube feeding. Placed on NG suction, general surgery following. 11/25: Leukocytosis improving. Continue current management anticipate extubation possible today. 11/26. Still intubated. Failed SBT yesterday. Repeat COVID-19 test is negative. 11/27. CT head ordered for possible neuro status change is negative. More responsive as the day progressed as per RN. Chest xray today shows interval improvement. He is still on antibiotics - will complete regimen today. 11/28: Considering difficult extubation and severe cardiomyopathy, will obtain cardiology consult. Aspiration precautions, tube feeds held, continue antibiotics. 11/29: Still with intermittent fever but improving imaging, continue diuresis. 11/30; Extremely agitated when placed on PSV- SVT, hypertension. Patiet acknowledged that he drinks. IV Ativan given, CIWA protocol initiated. 12 lead ordered showed SVT, one dose of amiodarone ordered. continue to follow up cardiology recommendation 12/01: Patient remains on mechanical ventilation, getting SBT trial. Remains in SVT, started on amiodarone drip by cardiology. 12/02; patient is on mechanical ventilation and on spontaneous breathing trial. Cardiology started the patient on PO amiodarone. Patient is on cefepime. 12/03: patient is on mechanical ventilation. Cardiology started the patient on PO amiodarone for SVT. Patient is on cefepime, no fever overnight. 12/04: Patient is sedated and on mechanical ventilation. Patient had fever yesterday afternoon 102.3, ID changed his cefepime to meropenem. Heart rate is controlled, cardiology is following. Patient has paroxysmal atrial fibrillation and on amiodarone and metoprolol, subcu heparin for anticoagulation and will need oral anticoagulation once stable. 12/05: Sputum cultures positive for Pseudomonas, ID following 12/06; patient is febrile T-max 24 hours 102 F ,ID change antibiotics to cefepime and Vancomycin 12/07: resumed care. Na 149 today, start on 1/2 NS. cont current care 12/08: remains in a stable sinus rhythm and stable blood pressure, continue supportive care. wean off vent as tolerated. persistent fever - ordered CTA chest 12/09: noted bloody discharges from ET tube last night. CTA and LE venous doppler positive for acute PE and DVT. resume heparin drip, consult vascular for possible EKOS/ IVC filter. monitor h/h. cont SBT trial, wean off vent as tolerated. called but no answer 12/10: cont heparin drip for acute PE and DVT, follow vascular recommendation. monitor h/h, wean off vent as tolerated 12/11: o/n had bleeding from ET tube, cont to monitor h/h. vascular recommending medical Mx. called ; Nicolle Araiza [phone]. 12/12: H&H remained stable, patient on heparin drip. Discussed with yesterday. Discussed with critical care attending. Patient not tolerating SBT trial. Continue to wean off from vent as tolerated, follow clinically. Tolerating tube feeding 12/13: Continue heparin drip, wean off from vent as tolerated. Discussed with pulmonary attending if no improvement by the end of 3 weeks of intubation patient may need trach and PEG. Continue to provide supportive care, follow CBC and BMP. 12/14: Stop cefepime today, wean off from vent as tolerated. cont Heparin infusion, while monitoring for bleeding 12/15: Patient is not tolerating SBT trial, becoming apnic on CPAP. May need to place on trach and PEG. Continue heparin drip, monitor off antibiotics 12/16. Still maintained on vent. May need PEG and trach as her has been failed SBTs 12/17. Had low UO overnight. Started on tamsulosin. May need PEG and trach - defer to pulm. . Plan for US thoracentesis to help with weaning. Remains on heparin drip for VTE. 12/20. Discussed with spouse today. He will get thoracentesis today. INR/PTT ordered. Heparin drip held. 12/21: planned for trach and PEG, cont supportive care, thoracentesis cancelled 12/22: cont supportive care, wean off from vent, daily SBT 12/23: tolerating SBT, possible extubation soon. cont supportive care 12/24: wean off vent as tolerated, daily SBT, follow clinically 12/25; cont to monitor, wean off vent as tolerated 12/26: Continue to monitor wean off vent as tolerated patient is tolerating SBT trial but not ready to wean off. 12/27: need trach and PEG, will f/u with GS, cont supportive care 12/28: pending trach/PEG 12/29: plan for trach and PEG on Saturday 12/30: Plan for trach and PEG. Temp 101F. Blood cultures, urinalysis and chest xray ordered. 12/31. Had afib with RVR overnight. Metoprolol dose has been increased. He is still on amiodarone. Plan for PEG tube placement today. Repeat chest x-ray shows worsening infiltrates. Started on the Lasix. Monitor fever now. Blood cultures negative so far. Urinalysis pending 01/01. Started on antibiotics as he had another fever. On vancomycin and zosyn. ID consulted. HR still in the 100s. Had trach and PEG placement on 12/31 with no complications. BC 03/28 - Coag negative staph? contaminant. 01/02. On antibiotics. ID consulted. HR still high. Cardiology adjusting HR control medications. 01/03. HR better. Heparin switched to DOAC. HR better. Started on bumex 01/04: c/o abdominal pain, not tolerating TF, had projectile vomiting few times. Abd xry/CT abd suggestive of partial SBO, reconsult surgery, place NG with suction, start iv fluid. 01/05; Pt stable. NGT output 650cc over 24 hours, bilious. No f/c, WBC within normal limits. cont NG suction and cont to hold TF 01/06: Abs series - mild improvement in small bowel distension in mid abdomen, normal gas/stool pattern in colon. NGT in duodenum. Continue to hold tube feeding, maintain NG tube with low intermittent suction. Patient's was updated by phone. Continue to provide supportive care and monitor clinically. Subjective Date of service: 01/07/20 Principal diagnosis: Ac hypoxemic resp failure; Pneumonia; PUI COVID-19; CHF; COPD; HTN Interval history: Patient seen and examined Patient intubated on trach Discussed with RN at the bedside H/H STABLE, patient TF on hold b/o Vomiting episode and SBO Objective - Exam Narrative Exam: General appearance: Present: well-nourished, opens eyes to names and follows minor command - EENT Eyes: Present: PERRL, EOM intact. Absent: scleral icterus ENT: clear oral mucosa, dentition normal - Neck Neck: Present: supple, normal ROM - Respiratory Respiratory effort: normal, mechanical ventilation with trach Respiratory: bilateral: rales - Cardiovascular Rhythm: regular Heart Sounds: Present: S1 & S2, tachycardic. Absent: gallop, systolic murmur, diastolic murmur, rub - Extremities Extremities: no ischemia, pulses intact, pulses symmetrical, No edema, Full ROM Peripheral Pulses: within normal limits - Abdominal General gastrointestinal: Present: soft, + tender, distended, hypoactive bowel sounds. - Integumentary Integumentary: Present: clear, warm, dry. Absent: rash - Musculoskeletal Musculoskeletal: no joint swelling - Psychiatric Psychiatric: no agitation Neurology: no focal deficits - Constitutional Vitals: Vital Signs - 12hr 01/07/20 01/07/20 01/07/20 03:00 03:30 04:00 Temperature 98.8 F Pulse Rate 80 74 73 Pulse Rate [ 74 From Monitor] Respiratory 19 19 26 H Rate Blood Pressure 114/65 99/59 95/56 O2 Sat by Pulse 97 98 100 Oximetry O2 Sat by Pulse Oximetry [ Assessment] 01/07/20 01/07/20 01/07/20 04:06 04:30 05:00 Temperature 98.8 F Pulse Rate 75 81 82 Pulse Rate [ From Monitor] Respiratory 14 17 Rate Blood Pressure 95/56 103/67 111/71 O2 Sat by Pulse 99 100 98 Oximetry O2 Sat by Pulse Oximetry [ Assessment] 01/07/20 01/07/20 01/07/20 05:30 06:00 06:30 Temperature Pulse Rate 79 81 76 Pulse Rate [ From Monitor] Respiratory 20 20 18 Rate Blood Pressure 111/70 107/76 112/73 O2 Sat by Pulse 98 98 96 Oximetry O2 Sat by Pulse Oximetry [ Assessment] 01/07/20 01/07/20 01/07/20 07:00 07:23 07:31 Temperature Pulse Rate 77 84 81 Pulse Rate [ From Monitor] Respiratory 21 6 L 20 Rate Blood Pressure 105/68 136/91 136/91 O2 Sat by Pulse 95 100 99 Oximetry O2 Sat by Pulse Oximetry [ Assessment] 01/07/20 01/07/20 01/07/20 07:39 08:00 08:11 Temperature 98.3 F Pulse Rate 84 83 Pulse Rate [ 85 From Monitor] Respiratory 17 11 L Rate Blood Pressure 133/82 133/82 O2 Sat by Pulse 100 100 Oximetry O2 Sat by Pulse 100 Oximetry [ Assessment] 01/07/20 01/07/20 01/07/20 08:30 09:00 09:30 Temperature Pulse Rate 82 86 81 Pulse Rate [ From Monitor] Respiratory 21 23 20 Rate Blood Pressure 130/80 120/88 124/78 O2 Sat by Pulse 99 99 99 Oximetry O2 Sat by Pulse Oximetry [ Assessment] 01/07/20 01/07/20 01/07/20 10:00 10:31 11:01 Temperature Pulse Rate 79 84 81 Pulse Rate [ From Monitor] Respiratory 19 20 19 Rate Blood Pressure 119/77 141/98 150/98 O2 Sat by Pulse 99 99 97 Oximetry O2 Sat by Pulse Oximetry [ Assessment] 01/07/20 01/07/20 01/07/20 11:30 12:00 12:30 Temperature Pulse Rate 83 87 88 Pulse Rate [ From Monitor] Respiratory 22 22 22 Rate Blood Pressure 145/94 169/110 158/102 O2 Sat by Pulse 99 100 100 Oximetry O2 Sat by Pulse Oximetry [ Assessment] 01/07/20 01/07/20 01/07/20 13:00 13:31 14:01 Temperature Pulse Rate 86 86 110 H Pulse Rate [ From Monitor] Respiratory 21 23 25 H Rate Blood Pressure 139/94 143/87 143/87 O2 Sat by Pulse 98 97 94 Oximetry O2 Sat by Pulse Oximetry [ Assessment] 01/07/20 01/07/20 14:19 14:30 Temperature Pulse Rate 90 88 Pulse Rate [ From Monitor] Respiratory 18 Rate Blood Pressure 109/90 118/78 O2 Sat by Pulse 99 Oximetry O2 Sat by Pulse Oximetry [ Assessment] - Labs CBC & Chem 7: 01/09/20 04:11 01/09/20 04:11 Labs: Abnormal lab results 01/06/20 01/07/20 01/07/20 Range/Units 17:54 00:06 04:10 RBC 3.42 L (3.65-5.03) M/mm3 Hgb 8.9 L (11.8-15.2) gm/dl Hct 29.0 L (35.5-45.6) % MCH 26 L (28-32) pg MCHC 31 L (32-34) % RDW 17.1 H (13.2-15.2) % Posey % (Auto) 8.4 H (0.0-7.3) % Sodium (137-145) mmol/L Potassium (3.6-5.0) mmol/L Carbon Dioxide (22-30) mmol/L Creatinine (0.8-1.3) mg/dL Glucose (75-100) mg/dL POC Glucose 112 H 126 H (70-105) Total Protein (6.3-8.2) g/dL Albumin (3.9-5) g/dL 01/07/20 01/07/20 01/07/20 Range/Units 04:10 05:59 12:27 RBC (3.65-5.03) M/mm3 Hgb (11.8-15.2) gm/dl Hct (35.5-45.6) % MCH (28-32) pg MCHC (32-34) % RDW (13.2-15.2) % Posey % (Auto) (0.0-7.3) % Sodium 153 H (137-145) mmol/L Potassium 3.5 L (3.6-5.0) mmol/L Carbon Dioxide 34 H (22-30) mmol/L Creatinine 0.6 L (0.8-1.3) mg/dL Glucose 121 H (75-100) mg/dL POC Glucose 121 H 126 H (70-105) Total Protein 5.9 L (6.3-8.2) g/dL Albumin 2.4 L (3.9-5) g/dL HEART Score - HEART Score Troponin: Troponin T < 0.010 ng/mL (0.00-0.029) 11/24/19 02:53
[2020-01-07] MEDS ORDERED: SCOPOLAMINE TRANSDERMAL PATCH 72 HR TD SCH (20:00)
[2020-01-07] MEDS: TAMSULOSIN 0.4 MG CAP PO SCH (21:07)
[2020-01-07] MEDS: POLYETHYLENE GLYCOL 3350 17 GM POWDER PO SCH (21:09)
[2020-01-08] MEDS: MORPHINE 2 MG/1 ML INJ IV PRN (01:39)
[2020-01-08] MEDS: METOPROLOL TARTRATE 5 MG/5 ML INJ IV SCH ×3 (02:00→13:44)
[2020-01-08] MEDS ORDERED: SODIUM CHLORIDE 0.9% 1000 ML 250 ML IV ONE ×2 (03:25→04:10)
[2020-01-08] MEDS: METOPROLOL TARTRATE 25 MG TAB FEEDTUBE SCH ×4 (05:47→18:25)
[2020-01-08] MEDS ORDERED: SODIUM CHLORIDE 0.9% 250ML 250 ML IV NR (08:00)
[2020-01-08] MEDS: HALOPERIDOL LACTATE 5 MG/1 ML INJ IV PRN ×2 (08:30→17:00)
[2020-01-08] MEDS: LORazepam 2 MG/ML VIAL IV PRN ×2 (08:30→17:00)
--- NOTE | 2020-01-08 10:46 | Progress Note ---
Assessment and Plan - Patient Problems (1) Paroxysmal atrial fibrillation Current Visit: Yes Status: Acute Plan to address problem: Continue conservative cardiac medical management as previously outlined. Subjective Date of service: 01/08/20 Principal diagnosis: Ac hypoxemic resp failure; Pneumonia; PUI COVID-19; CHF; COPD; HTN Interval history: Patient is sedated, on the vent via a tracheostomy. groundwater monitoring technician shows a normal sinus rhythm at 90, blood pressure 132 systolic. Objective Vital Signs Temp Pulse Pulse Resp BP Pulse Ox Pulse Ox 01/08/20 10:30 81 40 H 111/72 100 01/08/20 10:01 85 22 115/80 100 01/08/20 09:30 98 H 41 H 132/85 100 01/08/20 09:00 142 H 32 H 172/126 99 01/08/20 08:57 142 H 189/120 01/08/20 08:30 139 H 32 H 189/120 88 01/08/20 08:07 151 H 186/120 100 01/08/20 08:01 148 H 28 H 148/98 100 01/08/20 08:00 98.8 F 01/08/20 07:31 152 H 27 H 148/98 80 L 01/08/20 07:00 101 H 26 H 148/98 93 01/08/20 06:30 99 H 27 H 147/103 98 01/08/20 06:00 91 H 21 138/94 100 01/08/20 05:30 86 22 124/89 98 01/08/20 05:00 84 23 123/85 98 01/08/20 04:30 79 17 115/74 97 01/08/20 04:05 78 108/71 99 01/08/20 04:00 74 21 108/71 100 01/08/20 03:30 83 19 123/83 96 01/08/20 03:22 98.8 F 01/08/20 03:00 88 23 127/85 94 01/08/20 02:30 90 23 127/82 98 01/08/20 02:00 89 23 119/85 95 01/08/20 01:38 97 01/08/20 01:30 93 H 24 117/87 96 01/08/20 01:01 89 21 122/87 97 01/08/20 00:30 81 24 107/74 98 10/16/20 00:00 74 79 18 104/71 99 01/07/20 23:59 82 104/71 99 01/07/20 23:57 78 21 104/70 99 01/07/20 23:30 80 24 97/66 100 01/07/20 23:00 97.9 F 81 25 H 104/70 97 01/07/20 22:30 80 24 112/74 97 01/07/20 22:00 89 19 130/95 99 01/07/20 21:30 78 24 106/74 100 01/07/20 21:06 84 114/77 01/07/20 21:00 85 23 114/77 97 01/07/20 20:30 89 19 112/82 98 01/07/20 20:02 92 H 139/94 97 01/07/20 20:00 90 87 21 139/94 100 01/07/20 19:50 99 F 01/07/20 19:30 96 H 26 H 127/91 100 01/07/20 19:00 89 22 125/82 98 01/07/20 18:31 95 H 26 H 138/88 99 01/07/20 18:00 89 23 111/81 01/07/20 17:30 90 22 112/71 97 01/07/20 17:01 87 20 121/82 94 01/07/20 16:30 89 22 117/81 98 01/07/20 16:00 98.8 F 90 87 21 119/80 100 01/07/20 15:30 90 20 113/72 100 01/07/20 15:00 89 22 115/69 99 01/07/20 14:30 88 18 118/78 99 01/07/20 14:19 90 109/90 01/07/20 14:01 110 H 25 H 143/87 94 01/07/20 13:31 86 23 143/87 97 01/07/20 13:00 86 21 139/94 98 01/07/20 12:30 88 22 158/102 100 01/07/20 12:00 98.2 F 87 110 H 22 169/110 100 01/07/20 11:30 83 22 145/94 99 01/07/20 11:01 81 19 150/98 97 - Physical Examination General: Other (vent to trach) HEENT: Positive: PERRL Neck: Positive: neck supple Cardiac: Positive: Reg Rate and Rhythm Lungs: Positive: Decreased Breath Sounds Neuro: Positive: Other (Sedated, on the vent via trach) Abdomen: Positive: Soft Skin: Positive: Clear Extremities: Absent: edema - Allied health notes Allied health notes reviewed: RT
--- NOTE | 2020-01-08 11:37 | XRay Report ---
CHEST 1 VIEW 01/08/2020 10:25 AM INDICATION / CLINICAL INFORMATION: respiratory distress. COMPARISON: Chest x-ray on 01/07/2020 FINDINGS: SUPPORT DEVICES: Stable, satisfactory device positioning. HEART / MEDIASTINUM: Stable. LUNGS / PLEURA: Stable diffuse bilateral pulmonary opacities. No pneumothorax. ADDITIONAL FINDINGS: No significant additional findings. IMPRESSION: 1. No significant change. Signer Name: Tad Burnett MD Signed: 01/08/2020 11:33 AM Workstation Name: [id number]
--- NOTE | 2020-01-08 11:41 | Progress Note ---
Assessment and Plan Acute hypoxemic respiratory failure s/p trach on MVS Bilateral pneumonia, community acquired. Acute congestive heart failure exacerbation. History of cerebrovascular accident. Acute chronic obstructive pulmonary disease exacerbation. Hypertension and hypertensive urgency at presentation. History of arthritis. Oropharyngeal dysphagia Right Lext DVT Pulmonary embolism Trach care, airway clearance, secretion management Replete potassium, keep at 4, magnesium at 2 and Phos at 2.5 Continue NGT to LIS, PEG to gravity- plan to initiate trophic feeding in the next 24 hours, bowel regimen Continue therapeutic Lovenox, while NPO Bowel rest with serial abdominal exams Continue D5 1/2Nsaline at 75ml/hour while NPO, hypernatremia is improving General surgery notes reviewed and appreciate BMP daily for 2 days then as clinically indicated Monitor closely CXR, ABG as clinically indicated Continue Precedex for agitation management Continue accuchecks with glycemic control per SSI for target blood glucose goal of 140-180 mg/dL while critically ill; Avoid hypoglycemia - continue to monitor renal function, hemodynamics and electrolyte profile - continue to wean oxygen for O2 sats > 90% - continue bronchodilators with pulmonary hygiene per RT - VAP bundle addressed (Aspiration precautions, HOB >40) - continue to wean per pulmonary driven protocols - continue prn analgesia per CPOT score - follow clinically re: fever curves / trend WBC - Avoid delirium (no benzodiazepines if they can be avoided) - continue stress ulcer prophylaxis with Famotidine BID - continue mobility protocols for pressure ulcer prophylaxis - continue fall precautions - Supportive transfusions as indicated to keep HgB>7g/dL - Continue to monitor neurologic function - Continue chronic home medications as clinically indicated - Continue all supportive care CONDITION: CRITICAL PROGNOSIS: GUARDED CODE STATUS: FULL CODE The high probability of a clinically significant, sudden or life threatening deterioration of the [Respiratory, cardiovascular, GI & neurological] system(s) required my full and direct attention, intervention and personal management. The aggregate critical care time was [32] minutes without overlap. Time includes sp ent on [x] Data Review and interpretation [x] Patient assessment and monitoring of vital signs [x] Documentation [x] Medication orders and management Subjective Date of service: 01/08/20 Principal diagnosis: Ac hypoxemic resp failure; Pneumonia; PUI COVID-19; CHF; COPD; HTN Interval history: Patient is seen today for: Acute hypoxemic respiratory failure; [place]. Pneumonia (CAP); PUI COVID-19 infection; AE-CHF; AE-COPD; H/O CVA; HTN; PE, DVT Seen and examined at bedside; 24 hour events reviewed; nursing and respiratory care staff consulted; no adverse overnight events reported to me; resting peacefully in bed;s/p trach No asynchrony,episodes of agitation with episodes of desaturations requiring increasing his FIO2 to 100%, now back down to 50%. No BMs No fevers. Objective Vital Signs - 12hr 01/07/20 01/07/20 01/08/20 23:57 23:59 00:00 Temperature Pulse Rate 78 82 74 Pulse Rate [ 79 From Monitor] Respiratory 21 18 Rate Blood Pressure 104/70 104/71 104/71 O2 Sat by Pulse 99 99 99 Oximetry O2 Sat by Pulse Oximetry [ Assessment] 01/08/20 01/08/20 01/08/20 00:30 01:01 01:30 Temperature Pulse Rate 81 89 93 H Pulse Rate [ From Monitor] Respiratory 24 21 24 Rate Blood Pressure 107/74 122/87 117/87 O2 Sat by Pulse 98 97 96 Oximetry O2 Sat by Pulse Oximetry [ Assessment] 01/08/20 01/08/20 01/08/20 01:38 02:00 02:30 Temperature Pulse Rate 89 90 Pulse Rate [ From Monitor] Respiratory 23 23 Rate Blood Pressure 119/85 127/82 O2 Sat by Pulse 95 98 Oximetry O2 Sat by Pulse 97 Oximetry [ Assessment] 01/08/20 01/08/20 01/08/20 03:00 03:22 03:30 Temperature 98.8 F Pulse Rate 88 83 Pulse Rate [ From Monitor] Respiratory 23 19 Rate Blood Pressure 127/85 123/83 O2 Sat by Pulse 94 96 Oximetry O2 Sat by Pulse Oximetry [ Assessment] 01/08/20 01/08/20 01/08/20 04:00 04:05 04:30 Temperature Pulse Rate 74 78 79 Pulse Rate [ From Monitor] Respiratory 21 17 Rate Blood Pressure 108/71 108/71 115/74 O2 Sat by Pulse 100 99 97 Oximetry O2 Sat by Pulse Oximetry [ Assessment] 01/08/20 01/08/20 01/08/20 05:00 05:30 06:00 Temperature Pulse Rate 84 86 91 H Pulse Rate [ From Monitor] Respiratory 23 22 21 Rate Blood Pressure 123/85 124/89 138/94 O2 Sat by Pulse 98 98 100 Oximetry O2 Sat by Pulse Oximetry [ Assessment] 01/08/20 01/08/20 01/08/20 06:30 07:00 07:31 Temperature Pulse Rate 99 H 101 H 152 H Pulse Rate [ From Monitor] Respiratory 27 H 26 H 27 H Rate Blood Pressure 147/103 148/98 148/98 O2 Sat by Pulse 98 93 80 L Oximetry O2 Sat by Pulse Oximetry [ Assessment] 01/08/20 01/08/20 01/08/20 08:00 08:01 08:07 Temperature 98.8 F Pulse Rate 148 H 151 H Pulse Rate [ From Monitor] Respiratory 28 H Rate Blood Pressure 148/98 186/120 O2 Sat by Pulse 100 100 Oximetry O2 Sat by Pulse Oximetry [ Assessment] 01/08/20 01/08/20 01/08/20 08:30 08:57 09:00 Temperature Pulse Rate 139 H 142 H 142 H Pulse Rate [ From Monitor] Respiratory 32 H 32 H Rate Blood Pressure 189/120 189/120 172/126 O2 Sat by Pulse 88 99 Oximetry O2 Sat by Pulse Oximetry [ Assessment] 01/08/20 01/08/20 01/08/20 09:30 10:01 10:30 Temperature Pulse Rate 98 H 85 81 Pulse Rate [ From Monitor] Respiratory 41 H 22 40 H Rate Blood Pressure 132/85 115/80 111/72 O2 Sat by Pulse 100 100 100 Oximetry O2 Sat by Pulse Oximetry [ Assessment] Constitutional: no acute distress, asleep (sedated), other (elelderly and obese male, normocephalic with mildly increased respiratory effort at rest on MVS) Eyes: non-icteric ENT: oropharynx moist, other (trach to MVS, NGT to LIS) Neck: supple, no JVD Effort: mildly labored Ascultation: Bilateral: diminished breath sounds (bases), rhonchi, other (mild secretions) Percussion: Bilateral: not dull Cardiovascular: irregular rhythm, other (S1,S2) Gastrointestinal: normoactive bowel sounds, soft, non-tender, other (distended, PEG in place) Integumentary: normal Extremities: no cyanosis, pulses normal, no ischemia or petechiae, edema (bilateral upper ) Neurologic: non-focal exam (moves extremities), pupils equal and round Psychiatric: anxious CBC and BMP: 01/09/20 04:11 01/09/20 04:11 ABG, PT/INR, D-dimer: ABG ABG pH 7.415 pH Units (7.350-7.450) 01/03/20 18:30 POC ABG pCO2 52.9 mmHg (32.0-48.0) H 12/22/19 03:22 ABG pCO2 57.6 mm Hg 01/03/20 18:30 POC ABG pO2 52.3 mmHg (83-108) L 12/22/19 03:22 ABG pO2 70.7 mm Hg (80.0-90.0) L 01/03/20 18:30 POC ABG HCO3 33.4 12/22/19 03:22 ABG O2 Saturation 94.4 % (95.0-99.0) L 01/03/20 18:30 PT/INR, D-dimer PT 13.8 Sec. (12.2-14.9) 12/21/19 10:13 INR 1.05 (0.87-1.13) 12/21/19 10:13 Abnormal lab findings: Abnormal Labs 11/24/19 11/24/19 11/24/19 02:53 02:53 03:45 WBC 14.3 H RBC Hgb Hct MCHC RDW 17.2 H MCH Lymph % (Auto) [place] % (Auto) [place] # Eos # Lymph # (Auto) [place] # (Auto) Eos # (Auto) Seg Neutrophils % Seg Neuts % (Manual) Baso # (Auto) Lymphocytes % (Manual) Monocytes % (Manual) Eosinophils % (Manual) Basophils % (Manual) Seg Neutrophils # Seg Neutrophils # Man 8.3 H Lymphocytes # (Manual) Monocytes # (Manual) 0.9 H Eosinophils # (Manual) Nucleated RBC % Basophils # (Manual) APTT Heparin Anti-Xa Level ABG pH 7.313 L POC ABG pO2 ABG pO2 102.8 H ABG HCO3 ABG O2 Saturation ABG Base Excess -2.9 L POC ABG pCO2 ABG Hemoglobin ABG Oxyhemoglobin Oxyhemoglobin 93.9 L Sodium Potassium Chloride Carbon Dioxide BUN Creatinine Glucose 195 H POC Glucose Lactic Acid Calcium Phosphorus Magnesium AST ALT Lactate Dehydrogenase CK-MB (CK-2) 4.3 H C-Reactive Protein NT-Pro-B Natriuret Pep 1181 H Total Protein Albumin Urine WBC (Auto) 11/24/19 11/24/19 11/24/19 04:53 04:53 10:37 WBC RBC Hgb Hct MCHC RDW MCH Lymph % (Auto) [place] % (Auto) [place] # Eos # Lymph # (Auto) [place] # (Auto) Eos # (Auto) Seg Neutrophils % Seg Neuts % (Manual) Baso # (Auto) Lymphocytes % (Manual) Monocytes % (Manual) Eosinophils % (Manual) Basophils % (Manual) Seg Neutrophils # Seg Neutrophils # Man Lymphocytes # (Manual) Monocytes # (Manual) Eosinophils # (Manual) Nucleated RBC % Basophils # (Manual) APTT Heparin Anti-Xa Level ABG pH POC ABG pO2 ABG pO2 ABG HCO3 ABG O2 Saturation ABG Base Excess POC ABG pCO2 ABG Hemoglobin ABG Oxyhemoglobin Oxyhemoglobin Sodium Potassium Chloride Carbon Dioxide BUN Creatinine Glucose 162 H POC Glucose Lactic Acid 2.40 H* 2.50 H* Calcium Phosphorus Magnesium AST ALT Lactate Dehydrogenase 240 H CK-MB (CK-2) C-Reactive Protein NT-Pro-B Natriuret Pep Total Protein Albumin Urine WBC (Auto) 11/24/19 11/24/19 11/24/19 12:21 14:50 19:54 WBC RBC Hgb Hct MCHC RDW MCH Lymph % (Auto) [place] % (Auto) [place] # Eos # Lymph # (Auto) [place] # (Auto) Eos # (Auto) Seg Neutrophils % Seg Neuts % (Manual) Baso # (Auto) Lymphocytes % (Manual) Monocytes % (Manual) Eosinophils % (Manual) Basophils % (Manual) Seg Neutrophils # Seg Neutrophils # Man Lymphocytes # (Manual) Monocytes # (Manual) Eosinophils # (Manual) Nucleated RBC % Basophils # (Manual) APTT Heparin Anti-Xa Level ABG pH POC ABG pO2 ABG pO2 ABG HCO3 ABG O2 Saturation ABG Base Excess POC ABG pCO2 ABG Hemoglobin ABG Oxyhemoglobin Oxyhemoglobin Sodium Potassium Chloride Carbon Dioxide BUN Creatinine Glucose POC Glucose 145 H 143 H 124 H Lactic Acid Calcium Phosphorus Magnesium AST ALT Lactate Dehydrogenase CK-MB (CK-2) C-Reactive Protein NT-Pro-B Natriuret Pep Total Protein Albumin Urine WBC (Auto) 11/25/19 11/25/19 11/25/19 00:18 03:18 05:11 WBC 13.7 H RBC Hgb Hct MCHC RDW 17.1 H MCH Lymph % (Auto) 10.8 L [place] % (Auto) 8.7 H [place] # 1.2 H Eos # Lymph # (Auto) [place] # (Auto) Eos # (Auto) Seg Neutrophils % 80.2 H Seg Neuts % (Manual) Baso # (Auto) Lymphocytes % (Manual) Monocytes % (Manual) Eosinophils % (Manual) Basophils % (Manual) Seg Neutrophils # 11.0 H Seg Neutrophils # Man Lymphocytes # (Manual) Monocytes # (Manual) Eosinophils # (Manual) Nucleated RBC % Basophils # (Manual) APTT Heparin Anti-Xa Level ABG pH 7.333 L POC ABG pO2 ABG pO2 61.2 L ABG HCO3 ABG O2 Saturation 90.2 L ABG Base Excess POC ABG pCO2 ABG Hemoglobin 13.7 L ABG Oxyhemoglobin Oxyhemoglobin 88.2 L Sodium Potassium Chloride Carbon Dioxide BUN Creatinine Glucose POC Glucose 109 H Lactic Acid Calcium Phosphorus Magnesium AST ALT Lactate Dehydrogenase CK-MB (CK-2) C-Reactive Protein NT-Pro-B Natriuret Pep Total Protein Albumin Urine WBC (Auto) 11/25/19 11/25/19 11/26/19 05:11 11:40 03:12 WBC RBC Hgb Hct MCHC RDW MCH Lymph % (Auto) [place] % (Auto) [place] # Eos # Lymph # (Auto) [place] # (Auto) Eos # (Auto) Seg Neutrophils % Seg Neuts % (Manual) Baso # (Auto) Lymphocytes % (Manual) Monocytes % (Manual) Eosinophils % (Manual) Basophils % (Manual) Seg Neutrophils # Seg Neutrophils # Man Lymphocytes # (Manual) Monocytes # (Manual) Eosinophils # (Manual) Nucleated RBC % Basophils # (Manual) APTT Heparin Anti-Xa Level ABG pH POC ABG pO2 ABG pO2 155.1 H ABG HCO3 27.8 H ABG O2 Saturation ABG Base Excess POC ABG pCO2 ABG Hemoglobin 12.2 L ABG Oxyhemoglobin Oxyhemoglobin Sodium Potassium Chloride Carbon Dioxide BUN 23 H Creatinine Glucose 110 H POC Glucose 108 H Lactic Acid Calcium Phosphorus Magnesium AST ALT Lactate Dehydrogenase CK-MB (CK-2) C-Reactive Protein NT-Pro-B Natriuret Pep Total Protein Albumin Urine WBC (Auto) 11/26/19 11/26/19 11/26/19 06:17 10:43 10:43 WBC 11.4 H RBC Hgb Hct MCHC RDW 17.1 H MCH Lymph % (Auto) [place] % (Auto) [place] # Eos # Lymph # (Auto) [place] # (Auto) Eos # (Auto) Seg Neutrophils % Seg Neuts % (Manual) Baso # (Auto) Lymphocytes % (Manual) Monocytes % (Manual) Eosinophils % (Manual) Basophils % (Manual) Seg Neutrophils # Seg Neutrophils # Man Lymphocytes # (Manual) Monocytes # (Manual) Eosinophils # (Manual) Nucleated RBC % Basophils # (Manual) APTT Heparin Anti-Xa Level ABG pH POC ABG pO2 ABG pO2 ABG HCO3 ABG O2 Saturation ABG Base Excess POC ABG pCO2 ABG Hemoglobin ABG Oxyhemoglobin Oxyhemoglobin Sodium Potassium Chloride Carbon Dioxide BUN 29 H Creatinine Glucose POC Glucose 107 H Lactic Acid Calcium Phosphorus Magnesium AST ALT Lactate Dehydrogenase CK-MB (CK-2) C-Reactive Protein NT-Pro-B Natriuret Pep Total Protein Albumin Urine WBC (Auto) 11/26/19 11/27/19 11/27/19 17:11 01:53 04:11 WBC RBC Hgb Hct MCHC RDW MCH Lymph % (Auto) [place] % (Auto) [place] # Eos # Lymph # (Auto) [place] # (Auto) Eos # (Auto) Seg Neutrophils % Seg Neuts % (Manual) Baso # (Auto) Lymphocytes % (Manual) Monocytes % (Manual) Eosinophils % (Manual) Basophils % (Manual) Seg Neutrophils # Seg Neutrophils # Man Lymphocytes # (Manual) Monocytes # (Manual) Eosinophils # (Manual) Nucleated RBC % Basophils # (Manual) APTT Heparin Anti-Xa Level ABG pH POC ABG pO2 ABG pO2 ABG HCO3 29.2 H ABG O2 Saturation ABG Base Excess 3.4 H POC ABG pCO2 ABG Hemoglobin 13.3 L ABG Oxyhemoglobin Oxyhemoglobin 94.5 L Sodium Potassium Chloride Carbon Dioxide BUN Creatinine Glucose POC Glucose 113 H 108 H Lactic Acid Calcium Phosphorus Magnesium AST ALT Lactate Dehydrogenase CK-MB (CK-2) C-Reactive Protein NT-Pro-B Natriuret Pep Total Protein Albumin Urine WBC (Auto) 11/27/19 11/28/19 11/28/19 05:27 05:00 05:25 WBC RBC Hgb Hct MCHC RDW MCH Lymph % (Auto) [place] % (Auto) [place] # Eos # Lymph # (Auto) [place] # (Auto) Eos # (Auto) Seg Neutrophils % Seg Neuts % (Manual) Baso # (Auto) Lymphocytes % (Manual) Monocytes % (Manual) Eosinophils % (Manual) Basophils % (Manual) Seg Neutrophils # Seg Neutrophils # Man Lymphocytes # (Manual) Monocytes # (Manual) Eosinophils # (Manual) Nucleated RBC % Basophils # (Manual) APTT Heparin Anti-Xa Level ABG pH POC ABG pO2 68.1 L ABG pO2 ABG HCO3 ABG O2 Saturation ABG Base Excess POC ABG pCO2 ABG Hemoglobin ABG Oxyhemoglobin 91.2 L Oxyhemoglobin Sodium Potassium Chloride Carbon Dioxide BUN Creatinine Glucose POC Glucose 111 H 110 H Lactic Acid Calcium Phosphorus Magnesium AST ALT Lactate Dehydrogenase CK-MB (CK-2) C-Reactive Protein NT-Pro-B Natriuret Pep Total Protein Albumin Urine WBC (Auto) 11/28/19 11/28/19 11/28/19 12:08 13:47 13:47 WBC 11.3 H RBC Hgb Hct MCHC RDW 16.1 H MCH Lymph % (Auto) [place] % (Auto) 9.9 H [place] # 1.1 H Eos # Lymph # (Auto) [place] # (Auto) Eos # (Auto) Seg Neutrophils % 71.4 H Seg Neuts % (Manual) Baso # (Auto) Lymphocytes % (Manual) Monocytes % (Manual) Eosinophils % (Manual) Basophils % (Manual) Seg Neutrophils # 8.1 H Seg Neutrophils # Man Lymphocytes # (Manual) Monocytes # (Manual) Eosinophils # (Manual) Nucleated RBC % Basophils # (Manual) APTT Heparin Anti-Xa Level ABG pH POC ABG pO2 ABG pO2 ABG HCO3 ABG O2 Saturation ABG Base Excess POC ABG pCO2 ABG Hemoglobin ABG Oxyhemoglobin Oxyhemoglobin Sodium Potassium Chloride Carbon Dioxide BUN 23 H Creatinine Glucose 123 H POC Glucose 112 H Lactic Acid Calcium Phosphorus Magnesium AST ALT Lactate Dehydrogenase CK-MB (CK-2) C-Reactive Protein NT-Pro-B Natriuret Pep Total Protein Albumin 3.7 L Urine WBC (Auto) 11/28/19 11/29/19 11/29/19 17:26 03:55 17:04 WBC RBC Hgb Hct MCHC RDW MCH Lymph % (Auto) [place] % (Auto) [place] # Eos # Lymph # (Auto) [place] # (Auto) Eos # (Auto) Seg Neutrophils % Seg Neuts % (Manual) Baso # (Auto) Lymphocytes % (Manual) Monocytes % (Manual) Eosinophils % (Manual) Basophils % (Manual) Seg Neutrophils # Seg Neutrophils # Man Lymphocytes # (Manual) Monocytes # (Manual) Eosinophils # (Manual) Nucleated RBC % Basophils # (Manual) APTT Heparin Anti-Xa Level ABG pH POC ABG pO2 ABG pO2 65.7 L ABG HCO3 28.3 H ABG O2 Saturation 93.9 L ABG Base Excess 3.6 H POC ABG pCO2 ABG Hemoglobin 13.3 L ABG Oxyhemoglobin Oxyhemoglobin 91.5 L Sodium Potassium Chloride Carbon Dioxide BUN Creatinine Glucose POC Glucose 123 H 119 H Lactic Acid Calcium Phosphorus Magnesium AST ALT Lactate Dehydrogenase CK-MB (CK-2) C-Reactive Protein NT-Pro-B Natriuret Pep Total Protein Albumin Urine WBC (Auto) 11/30/19 11/30/19 11/30/19 04:17 04:17 04:56 WBC 13.4 H RBC Hgb Hct MCHC RDW 15.6 H MCH Lymph % (Auto) [place] % (Auto) [place] # Eos # Lymph # (Auto) [place] # (Auto) Eos # (Auto) Seg Neutrophils % Seg Neuts % (Manual) Baso # (Auto) Lymphocytes % (Manual) Monocytes % (Manual) Eosinophils % (Manual) Basophils % (Manual) Seg Neutrophils # Seg Neutrophils # Man Lymphocytes # (Manual) Monocytes # (Manual) Eosinophils # (Manual) Nucleated RBC % Basophils # (Manual) APTT Heparin Anti-Xa Level ABG pH POC ABG pO2 ABG pO2 56.3 L ABG HCO3 29.3 H ABG O2 Saturation 91.5 L ABG Base Excess 4.7 H POC ABG pCO2 ABG Hemoglobin 12.1 L ABG Oxyhemoglobin Oxyhemoglobin 89.2 L Sodium 147 H Potassium Chloride Carbon Dioxide BUN 30 H Creatinine Glucose 124 H POC Glucose Lactic Acid Calcium Phosphorus Magnesium AST ALT Lactate Dehydrogenase CK-MB (CK-2) C-Reactive Protein NT-Pro-B Natriuret Pep Total Protein Albumin 3.8 L Urine WBC (Auto) 11/30/19 11/30/19 11/30/19 05:51 11:54 18:17 WBC RBC Hgb Hct MCHC RDW MCH Lymph % (Auto) [place] % (Auto) [place] # Eos # Lymph # (Auto) [place] # (Auto) Eos # (Auto) Seg Neutrophils % Seg Neuts % (Manual) Baso # (Auto) Lymphocytes % (Manual) Monocytes % (Manual) Eosinophils % (Manual) Basophils % (Manual) Seg Neutrophils # Seg Neutrophils # Man Lymphocytes # (Manual) Monocytes # (Manual) Eosinophils # (Manual) Nucleated RBC % Basophils # (Manual) APTT Heparin Anti-Xa Level ABG pH POC ABG pO2 ABG pO2 ABG HCO3 ABG O2 Saturation ABG Base Excess POC ABG pCO2 ABG Hemoglobin ABG Oxyhemoglobin Oxyhemoglobin Sodium Potassium Chloride Carbon Dioxide BUN Creatinine Glucose POC Glucose 127 H 115 H 143 H Lactic Acid Calcium Phosphorus Magnesium AST ALT Lactate Dehydrogenase CK-MB (CK-2) C-Reactive Protein NT-Pro-B Natriuret Pep Total Protein Albumin Urine WBC (Auto) 12/01/19 12/01/19 12/01/19 01:18 05:22 12:16 WBC RBC Hgb Hct MCHC RDW MCH Lymph % (Auto) [place] % (Auto) [place] # Eos # Lymph # (Auto) [place] # (Auto) Eos # (Auto) Seg Neutrophils % Seg Neuts % (Manual) Baso # (Auto) Lymphocytes % (Manual) Monocytes % (Manual) Eosinophils % (Manual) Basophils % (Manual) Seg Neutrophils # Seg Neutrophils # Man Lymphocytes # (Manual) Monocytes # (Manual) Eosinophils # (Manual) Nucleated RBC % Basophils # (Manual) APTT Heparin Anti-Xa Level ABG pH POC ABG pO2 ABG pO2 ABG HCO3 ABG O2 Saturation ABG Base Excess POC ABG pCO2 ABG Hemoglobin ABG Oxyhemoglobin Oxyhemoglobin Sodium Potassium 3.5 L Chloride 107.8 H Carbon Dioxide BUN 37 H Creatinine Glucose 157 H POC Glucose 118 H 148 H Lactic Acid Calcium 8.2 L D Phosphorus Magnesium AST 48 H ALT 60 H Lactate Dehydrogenase 194 H CK-MB (CK-2) C-Reactive Protein 8.50 H NT-Pro-B Natriuret Pep Total Protein 5.5 L Albumin 2.8 L Urine WBC (Auto) 12/01/19 12/02/19 12/02/19 18:04 00:05 05:16 WBC 11.4 H RBC Hgb Hct MCHC RDW 15.9 H MCH Lymph % (Auto) [place] % (Auto) 9.9 H [place] # 1.1 H Eos # Lymph # (Auto) [place] # (Auto) Eos # (Auto) Seg Neutrophils % 70.3 H Seg Neuts % (Manual) Baso # (Auto) Lymphocytes % (Manual) Monocytes % (Manual) Eosinophils % (Manual) Basophils % (Manual) Seg Neutrophils # 8.0 H Seg Neutrophils # Man Lymphocytes # (Manual) Monocytes # (Manual) Eosinophils # (Manual) Nucleated RBC % Basophils # (Manual) APTT Heparin Anti-Xa Level ABG pH POC ABG pO2 ABG pO2 ABG HCO3 ABG O2 Saturation ABG Base Excess POC ABG pCO2 ABG Hemoglobin ABG Oxyhemoglobin Oxyhemoglobin Sodium Potassium Chloride Carbon Dioxide BUN Creatinine Glucose POC Glucose 143 H 107 H Lactic Acid Calcium Phosphorus Magnesium AST ALT Lactate Dehydrogenase CK-MB (CK-2) C-Reactive Protein NT-Pro-B Natriuret Pep Total Protein Albumin Urine WBC (Auto) 12/02/19 12/02/19 12/02/19 05:16 06:03 11:52 WBC RBC Hgb Hct MCHC RDW MCH Lymph % (Auto) [place] % (Auto) [place] # Eos # Lymph # (Auto) [place] # (Auto) Eos # (Auto) Seg Neutrophils % Seg Neuts % (Manual) Baso # (Auto) Lymphocytes % (Manual) Monocytes % (Manual) Eosinophils % (Manual) Basophils % (Manual) Seg Neutrophils # Seg Neutrophils # Man Lymphocytes # (Manual) Monocytes # (Manual) Eosinophils # (Manual) Nucleated RBC % Basophils # (Manual) APTT Heparin Anti-Xa Level ABG pH POC ABG pO2 ABG pO2 ABG HCO3 ABG O2 Saturation ABG Base Excess POC ABG pCO2 ABG Hemoglobin ABG Oxyhemoglobin Oxyhemoglobin Sodium 146 H Potassium Chloride Carbon Dioxide BUN 28 H Creatinine Glucose 123 H POC Glucose 110 H 152 H Lactic Acid Calcium Phosphorus Magnesium AST ALT Lactate Dehydrogenase CK-MB (CK-2) C-Reactive Protein NT-Pro-B Natriuret Pep Total Protein Albumin Urine WBC (Auto) 12/02/19 12/02/19 12/02/19 12:58 17:58 23:36 WBC RBC Hgb Hct MCHC RDW MCH Lymph % (Auto) [place] % (Auto) [place] # Eos # Lymph # (Auto) [place] # (Auto) Eos # (Auto) Seg Neutrophils % Seg Neuts % (Manual) Baso # (Auto) Lymphocytes % (Manual) Monocytes % (Manual) Eosinophils % (Manual) Basophils % (Manual) Seg Neutrophils # Seg Neutrophils # Man Lymphocytes # (Manual) Monocytes # (Manual) Eosinophils # (Manual) Nucleated RBC % Basophils # (Manual) APTT Heparin Anti-Xa Level ABG pH POC ABG pO2 78.1 L ABG pO2 ABG HCO3 ABG O2 Saturation ABG Base Excess POC ABG pCO2 ABG Hemoglobin ABG Oxyhemoglobin Oxyhemoglobin Sodium Potassium Chloride Carbon Dioxide BUN Creatinine Glucose POC Glucose 120 H 123 H Lactic Acid Calcium Phosphorus Magnesium AST ALT Lactate Dehydrogenase CK-MB (CK-2) C-Reactive Protein NT-Pro-B Natriuret Pep Total Protein Albumin Urine WBC (Auto) 12/03/19 12/03/19 12/03/19 06:03 06:14 11:46 WBC RBC Hgb Hct MCHC RDW MCH Lymph % (Auto) [place] % (Auto) [place] # Eos # Lymph # (Auto) [place] # (Auto) Eos # (Auto) Seg Neutrophils % Seg Neuts % (Manual) Baso # (Auto) Lymphocytes % (Manual) Monocytes % (Manual) Eosinophils % (Manual) Basophils % (Manual) Seg Neutrophils # Seg Neutrophils # Man Lymphocytes # (Manual) Monocytes # (Manual) Eosinophils # (Manual) Nucleated RBC % Basophils # (Manual) APTT Heparin Anti-Xa Level ABG pH POC ABG pO2 ABG pO2 ABG HCO3 ABG O2 Saturation ABG Base Excess POC ABG pCO2 ABG Hemoglobin ABG Oxyhemoglobin Oxyhemoglobin Sodium Potassium Chloride Carbon Dioxide BUN Creatinine Glucose POC Glucose 142 H 130 H Lactic Acid Calcium Phosphorus Magnesium AST ALT Lactate Dehydrogenase CK-MB (CK-2) C-Reactive Protein NT-Pro-B Natriuret Pep Total Protein Albumin Urine WBC (Auto) 8.0 H 12/03/19 12/03/19 12/04/19 15:50 17:39 00:04 WBC RBC Hgb Hct MCHC RDW MCH Lymph % (Auto) [place] % (Auto) [place] # Eos # Lymph # (Auto) [place] # (Auto) Eos # (Auto) Seg Neutrophils % Seg Neuts % (Manual) Baso # (Auto) Lymphocytes % (Manual) Monocytes % (Manual) Eosinophils % (Manual) Basophils % (Manual) Seg Neutrophils # Seg Neutrophils # Man Lymphocytes # (Manual) Monocytes # (Manual) Eosinophils # (Manual) Nucleated RBC % Basophils # (Manual) APTT Heparin Anti-Xa Level ABG pH POC ABG pO2 ABG pO2 ABG HCO3 ABG O2 Saturation ABG Base Excess POC ABG pCO2 ABG Hemoglobin ABG Oxyhemoglobin Oxyhemoglobin Sodium Potassium Chloride Carbon Dioxide BUN Creatinine Glucose POC Glucose 146 H 133 H Lactic Acid Calcium Phosphorus 2.40 L Magnesium AST ALT Lactate Dehydrogenase CK-MB (CK-2) C-Reactive Protein NT-Pro-B Natriuret Pep Total Protein Albumin Urine WBC (Auto) 12/04/19 12/04/19 12/04/19 03:58 03:58 05:22 WBC 12.5 H RBC Hgb 11.2 L Hct 35.2 L MCHC RDW 16.0 H MCH Lymph % (Auto) [place] % (Auto) 9.6 H [place] # 1.2 H Eos # 0.5 H Lymph # (Auto) [place] # (Auto) Eos # (Auto) Seg Neutrophils % Seg Neuts % (Manual) Baso # (Auto) Lymphocytes % (Manual) Monocytes % (Manual) Eosinophils % (Manual) Basophils % (Manual) Seg Neutrophils # 8.6 H Seg Neutrophils # Man Lymphocytes # (Manual) Monocytes # (Manual) Eosinophils # (Manual) Nucleated RBC % Basophils # (Manual) APTT Heparin Anti-Xa Level ABG pH POC ABG pO2 ABG pO2 ABG HCO3 ABG O2 Saturation ABG Base Excess POC ABG pCO2 ABG Hemoglobin ABG Oxyhemoglobin Oxyhemoglobin Sodium 146 H Potassium Chloride 108.6 H Carbon Dioxide BUN 30 H Creatinine 0.7 L Glucose 121 H POC Glucose 132 H Lactic Acid Calcium Phosphorus Magnesium AST ALT Lactate Dehydrogenase CK-MB (CK-2) C-Reactive Protein NT-Pro-B Natriuret Pep Total Protein Albumin Urine WBC (Auto) 12/04/19 12/04/19 12/05/19 13:26 18:43 00:19 WBC RBC Hgb Hct MCHC RDW MCH Lymph % (Auto) [place] % (Auto) [place] # Eos # Lymph # (Auto) [place] # (Auto) Eos # (Auto) Seg Neutrophils % Seg Neuts % (Manual) Baso # (Auto) Lymphocytes % (Manual) Monocytes % (Manual) Eosinophils % (Manual) Basophils % (Manual) Seg Neutrophils # Seg Neutrophils # Man Lymphocytes # (Manual) Monocytes # (Manual) Eosinophils # (Manual) Nucleated RBC % Basophils # (Manual) APTT Heparin Anti-Xa Level ABG pH POC ABG pO2 ABG pO2 ABG HCO3 ABG O2 Saturation ABG Base Excess POC ABG pCO2 ABG Hemoglobin ABG Oxyhemoglobin Oxyhemoglobin Sodium Potassium Chloride Carbon Dioxide BUN Creatinine Glucose POC Glucose 185 H 156 H 150 H Lactic Acid Calcium Phosphorus Magnesium AST ALT Lactate Dehydrogenase CK-MB (CK-2) C-Reactive Protein NT-Pro-B Natriuret Pep Total Protein Albumin Urine WBC (Auto) 12/05/19 12/05/19 12/05/19 03:37 03:37 05:14 WBC 16.3 H RBC Hgb 11.4 L Hct MCHC RDW 15.6 H MCH Lymph % (Auto) 9.9 L [place] % (Auto) 9.7 H [place] # 1.6 H Eos # Lymph # (Auto) [place] # (Auto) Eos # (Auto) Seg Neutrophils % 78.0 H Seg Neuts % (Manual) Baso # (Auto) Lymphocytes % (Manual) Monocytes % (Manual) Eosinophils % (Manual) Basophils % (Manual) Seg Neutrophils # 12.7 H Seg Neutrophils # Man Lymphocytes # (Manual) Monocytes # (Manual) Eosinophils # (Manual) Nucleated RBC % Basophils # (Manual) APTT Heparin Anti-Xa Level ABG pH POC ABG pO2 ABG pO2 ABG HCO3 ABG O2 Saturation ABG Base Excess POC ABG pCO2 ABG Hemoglobin ABG Oxyhemoglobin Oxyhemoglobin Sodium 146 H Potassium Chloride 107.2 H Carbon Dioxide BUN 27 H Creatinine 0.7 L Glucose 171 H POC Glucose 168 H Lactic Acid Calcium Phosphorus Magnesium AST ALT Lactate Dehydrogenase CK-MB (CK-2) C-Reactive Protein NT-Pro-B Natriuret Pep Total Protein Albumin Urine WBC (Auto) 12/05/19 12/05/19 12/05/19 12:31 18:10 23:58 WBC RBC Hgb Hct MCHC RDW MCH Lymph % (Auto) [place] % (Auto) [place] # Eos # Lymph # (Auto) [place] # (Auto) Eos # (Auto) Seg Neutrophils % Seg Neuts % (Manual) Baso # (Auto) Lymphocytes % (Manual) Monocytes % (Manual) Eosinophils % (Manual) Basophils % (Manual) Seg Neutrophils # Seg Neutrophils # Man Lymphocytes # (Manual) Monocytes # (Manual) Eosinophils # (Manual) Nucleated RBC % Basophils # (Manual) APTT Heparin Anti-Xa Level ABG pH POC ABG pO2 ABG pO2 ABG HCO3 ABG O2 Saturation ABG Base Excess POC ABG pCO2 ABG Hemoglobin ABG Oxyhemoglobin Oxyhemoglobin Sodium Potassium Chloride Carbon Dioxide BUN Creatinine Glucose POC Glucose 159 H 198 H 115 H Lactic Acid Calcium Phosphorus Magnesium AST ALT Lactate Dehydrogenase CK-MB (CK-2) C-Reactive Protein NT-Pro-B Natriuret Pep Total Protein Albumin Urine WBC (Auto) 12/06/19 12/06/19 12/06/19 05:24 05:24 05:25 WBC 14.9 H RBC Hgb 10.8 L Hct 34.0 L MCHC RDW 15.6 H MCH Lymph % (Auto) 10.7 L [place] % (Auto) 8.3 H [place] # 1.2 H Eos # Lymph # (Auto) [place] # (Auto) Eos # (Auto) Seg Neutrophils % 78.7 H Seg Neuts % (Manual) Baso # (Auto) Lymphocytes % (Manual) Monocytes % (Manual) Eosinophils % (Manual) Basophils % (Manual) Seg Neutrophils # 11.7 H Seg Neutrophils # Man Lymphocytes # (Manual) Monocytes # (Manual) Eosinophils # (Manual) Nucleated RBC % Basophils # (Manual) APTT Heparin Anti-Xa Level ABG pH POC ABG pO2 ABG pO2 ABG HCO3 ABG O2 Saturation ABG Base Excess POC ABG pCO2 ABG Hemoglobin ABG Oxyhemoglobin Oxyhemoglobin Sodium 148 H Potassium 5.1 H Chloride 107.6 H Carbon Dioxide BUN 27 H Creatinine 0.7 L Glucose 155 H POC Glucose 157 H Lactic Acid Calcium Phosphorus Magnesium AST ALT Lactate Dehydrogenase CK-MB (CK-2) C-Reactive Protein NT-Pro-B Natriuret Pep Total Protein Albumin Urine WBC (Auto) 12/07/19 12/07/19 12/07/19 00:13 05:34 11:33 WBC RBC Hgb Hct MCHC RDW MCH Lymph % (Auto) [place] % (Auto) [place] # Eos # Lymph # (Auto) [place] # (Auto) Eos # (Auto) Seg Neutrophils % Seg Neuts % (Manual) Baso # (Auto) Lymphocytes % (Manual) Monocytes % (Manual) Eosinophils % (Manual) Basophils % (Manual) Seg Neutrophils # Seg Neutrophils # Man Lymphocytes # (Manual) Monocytes # (Manual) Eosinophils # (Manual) Nucleated RBC % Basophils # (Manual) APTT Heparin Anti-Xa Level ABG pH POC ABG pO2 ABG pO2 ABG HCO3 ABG O2 Saturation ABG Base Excess POC ABG pCO2 ABG Hemoglobin ABG Oxyhemoglobin Oxyhemoglobin Sodium Potassium Chloride Carbon Dioxide BUN Creatinine Glucose POC Glucose 142 H 111 H 169 H Lactic Acid Calcium Phosphorus Magnesium AST ALT Lactate Dehydrogenase CK-MB (CK-2) C-Reactive Protein NT-Pro-B Natriuret Pep Total Protein Albumin Urine WBC (Auto) 12/07/19 12/07/19 12/07/19 12:41 13:25 18:19 WBC 12.4 H RBC 3.53 L Hgb 10.2 L Hct 32.1 L MCHC RDW 15.3 H MCH Lymph % (Auto) 10.6 L [place] % (Auto) 7.8 H [place] # 1.0 H Eos # Lymph # (Auto) [place] # (Auto) Eos # (Auto) Seg Neutrophils % 77.6 H Seg Neuts % (Manual) Baso # (Auto) Lymphocytes % (Manual) Monocytes % (Manual) Eosinophils % (Manual) Basophils % (Manual) Seg Neutrophils # 9.6 H Seg Neutrophils # Man Lymphocytes # (Manual) Monocytes # (Manual) Eosinophils # (Manual) Nucleated RBC % Basophils # (Manual) APTT Heparin Anti-Xa Level ABG pH POC ABG pO2 ABG pO2 ABG HCO3 ABG O2 Saturation ABG Base Excess POC ABG pCO2 ABG Hemoglobin ABG Oxyhemoglobin Oxyhemoglobin Sodium 149 H Potassium Chloride 108.4 H Carbon Dioxide BUN 26 H Creatinine 0.6 L Glucose 149 H POC Glucose 164 H Lactic Acid Calcium Phosphorus Magnesium 2.60 H AST 121 H ALT 145 H Lactate Dehydrogenase CK-MB (CK-2) C-Reactive Protein NT-Pro-B Natriuret Pep Total Protein Albumin 2.6 L Urine WBC (Auto) 12/07/19 12/08/19 12/08/19 22:25 00:02 03:55 WBC 13.3 H RBC 3.40 L Hgb 9.7 L Hct 30.8 L MCHC 31 L RDW 15.5 H MCH Lymph % (Auto) [place] % (Auto) 8.1 H [place] # 1.1 H Eos # Lymph # (Auto) [place] # (Auto) Eos # (Auto) Seg Neutrophils % 73.0 H Seg Neuts % (Manual) Baso # (Auto) Lymphocytes % (Manual) Monocytes % (Manual) Eosinophils % (Manual) Basophils % (Manual) Seg Neutrophils # 9.7 H Seg Neutrophils # Man Lymphocytes # (Manual) Monocytes # (Manual) Eosinophils # (Manual) Nucleated RBC % Basophils # (Manual) APTT Heparin Anti-Xa Level 0.12 L ABG pH POC ABG pO2 ABG pO2 ABG HCO3 ABG O2 Saturation ABG Base Excess POC ABG pCO2 ABG Hemoglobin ABG Oxyhemoglobin Oxyhemoglobin Sodium Potassium Chloride Carbon Dioxide BUN Creatinine Glucose POC Glucose 151 H Lactic Acid Calcium Phosphorus Magnesium AST ALT Lactate Dehydrogenase CK-MB (CK-2) C-Reactive Protein NT-Pro-B Natriuret Pep Total Protein Albumin Urine WBC (Auto) 12/08/19 12/08/19 12/08/19 03:55 05:21 06:01 WBC RBC Hgb Hct MCHC RDW MCH Lymph % (Auto) [place] % (Auto) [place] # Eos # Lymph # (Auto) [place] # (Auto) Eos # (Auto) Seg Neutrophils % Seg Neuts % (Manual) Baso # (Auto) Lymphocytes % (Manual) Monocytes % (Manual) Eosinophils % (Manual) Basophils % (Manual) Seg Neutrophils # Seg Neutrophils # Man Lymphocytes # (Manual) Monocytes # (Manual) Eosinophils # (Manual) Nucleated RBC % Basophils # (Manual) APTT Heparin Anti-Xa Level 0.20 L ABG pH POC ABG pO2 ABG pO2 ABG HCO3 ABG O2 Saturation ABG Base Excess POC ABG pCO2 ABG Hemoglobin ABG Oxyhemoglobin Oxyhemoglobin Sodium 149 H Potassium Chloride 108.0 H Carbon Dioxide BUN 28 H Creatinine 0.6 L Glucose 144 H POC Glucose 143 H Lactic Acid Calcium Phosphorus Magnesium AST 98 H ALT 145 H Lactate Dehydrogenase CK-MB (CK-2) C-Reactive Protein NT-Pro-B Natriuret Pep Total Protein 6.0 L Albumin 2.4 L Urine WBC (Auto) 12/08/19 12/08/19 12/08/19 12:08 18:11 23:53 WBC RBC Hgb Hct MCHC RDW MCH Lymph % (Auto) [place] % (Auto) [place] # Eos # Lymph # (Auto) [place] # (Auto) Eos # (Auto) Seg Neutrophils % Seg Neuts % (Manual) Baso # (Auto) Lymphocytes % (Manual) Monocytes % (Manual) Eosinophils % (Manual) Basophils % (Manual) Seg Neutrophils # Seg Neutrophils # Man Lymphocytes # (Manual) Monocytes # (Manual) Eosinophils # (Manual) Nucleated RBC % Basophils # (Manual) APTT Heparin Anti-Xa Level ABG pH POC ABG pO2 ABG pO2 ABG HCO3 ABG O2 Saturation ABG Base Excess POC ABG pCO2 ABG Hemoglobin ABG Oxyhemoglobin Oxyhemoglobin Sodium Potassium Chloride Carbon Dioxide BUN Creatinine Glucose POC Glucose 172 H 122 H 162 H Lactic Acid Calcium Phosphorus Magnesium AST ALT Lactate Dehydrogenase CK-MB (CK-2) C-Reactive Protein NT-Pro-B Natriuret Pep Total Protein Albumin Urine WBC (Auto) 12/09/19 12/09/19 12/09/19 04:03 04:03 05:53 WBC RBC Hgb 9.1 L Hct 28.9 L MCHC RDW MCH Lymph % (Auto) [place] % (Auto) [place] # Eos # Lymph # (Auto) [place] # (Auto) Eos # (Auto) Seg Neutrophils % Seg Neuts % (Manual) Baso # (Auto) Lymphocytes % (Manual) Monocytes % (Manual) Eosinophils % (Manual) Basophils % (Manual) Seg Neutrophils # Seg Neutrophils # Man Lymphocytes # (Manual) Monocytes # (Manual) Eosinophils # (Manual) Nucleated RBC % Basophils # (Manual) APTT Heparin Anti-Xa Level 0.15 L ABG pH POC ABG pO2 ABG pO2 ABG HCO3 ABG O2 Saturation ABG Base Excess POC ABG pCO2 ABG Hemoglobin ABG Oxyhemoglobin Oxyhemoglobin Sodium Potassium Chloride Carbon Dioxide BUN Creatinine Glucose POC Glucose 124 H Lactic Acid Calcium Phosphorus Magnesium AST ALT Lactate Dehydrogenase CK-MB (CK-2) C-Reactive Protein NT-Pro-B Natriuret Pep Total Protein Albumin Urine WBC (Auto) 12/09/19 12/09/19 12/10/19 09:43 12:41 00:13 WBC RBC Hgb Hct MCHC RDW MCH Lymph % (Auto) [place] % (Auto) [place] # Eos # Lymph # (Auto) [place] # (Auto) Eos # (Auto) Seg Neutrophils % Seg Neuts % (Manual) Baso # (Auto) Lymphocytes % (Manual) Monocytes % (Manual) Eosinophils % (Manual) Basophils % (Manual) Seg Neutrophils # Seg Neutrophils # Man Lymphocytes # (Manual) Monocytes # (Manual) Eosinophils # (Manual) Nucleated RBC % Basophils # (Manual) APTT Heparin Anti-Xa Level ABG pH POC ABG pO2 ABG pO2 ABG HCO3 ABG O2 Saturation ABG Base Excess POC ABG pCO2 ABG Hemoglobin ABG Oxyhemoglobin Oxyhemoglobin Sodium Potassium Chloride Carbon Dioxide BUN 25 H Creatinine 0.6 L Glucose 131 H POC Glucose 109 H 120 H Lactic Acid Calcium Phosphorus Magnesium AST ALT Lactate Dehydrogenase CK-MB (CK-2) C-Reactive Protein NT-Pro-B Natriuret Pep Total Protein Albumin Urine WBC (Auto) 12/10/19 12/10/19 12/10/19 04:14 04:14 12:00 WBC 13.3 H RBC 3.34 L Hgb 9.6 L Hct 30.4 L MCHC RDW 15.4 H MCH Lymph % (Auto) [place] % (Auto) [place] # Eos # Lymph # (Auto) [place] # (Auto) Eos # (Auto) Seg Neutrophils % Seg Neuts % (Manual) 75.0 H Baso # (Auto) Lymphocytes % (Manual) 13.0 L Monocytes % (Manual) 8.0 H Eosinophils % (Manual) Basophils % (Manual) 2.0 H Seg Neutrophils # Seg Neutrophils # Man 10.0 H Lymphocytes # (Manual) Monocytes # (Manual) 1.1 H Eosinophils # (Manual) Nucleated RBC % Basophils # (Manual) 0.3 H APTT Heparin Anti-Xa Level ABG pH POC ABG pO2 ABG pO2 ABG HCO3 ABG O2 Saturation ABG Base Excess POC ABG pCO2 ABG Hemoglobin ABG Oxyhemoglobin Oxyhemoglobin Sodium 147 H Potassium Chloride 108.3 H Carbon Dioxide BUN 21 H Creatinine 0.6 L Glucose 104 H POC Glucose 133 H Lactic Acid Calcium Phosphorus Magnesium AST ALT Lactate Dehydrogenase CK-MB (CK-2) C-Reactive Protein NT-Pro-B Natriuret Pep Total Protein Albumin Urine WBC (Auto) 12/10/19 12/10/19 12/11/19 18:44 21:20 00:08 WBC 14.9 H RBC 3.36 L Hgb 9.6 L Hct 30.5 L MCHC RDW 15.4 H MCH Lymph % (Auto) [place] % (Auto) [place] # Eos # Lymph # (Auto) [place] # (Auto) Eos # (Auto) Seg Neutrophils % Seg Neuts % (Manual) Baso # (Auto) Lymphocytes % (Manual) Monocytes % (Manual) Eosinophils % (Manual) Basophils % (Manual) Seg Neutrophils # Seg Neutrophils # Man Lymphocytes # (Manual) Monocytes # (Manual) Eosinophils # (Manual) Nucleated RBC % Basophils # (Manual) APTT Heparin Anti-Xa Level ABG pH POC ABG pO2 ABG pO2 ABG HCO3 ABG O2 Saturation ABG Base Excess POC ABG pCO2 ABG Hemoglobin ABG Oxyhemoglobin Oxyhemoglobin Sodium Potassium Chloride Carbon Dioxide BUN Creatinine Glucose POC Glucose 119 H 134 H Lactic Acid Calcium Phosphorus Magnesium AST ALT Lactate Dehydrogenase CK-MB (CK-2) C-Reactive Protein NT-Pro-B Natriuret Pep Total Protein Albumin Urine WBC (Auto) 12/11/19 12/11/19 12/11/19 03:54 07:28 08:36 WBC 11.9 H RBC 3.25 L Hgb 9.6 L Hct 29.2 L MCHC RDW 15.7 H MCH Lymph % (Auto) [place] % (Auto) [place] # Eos # Lymph # (Auto) [place] # (Auto) Eos # (Auto) Seg Neutrophils % Seg Neuts % (Manual) Baso # (Auto) Lymphocytes % (Manual) Monocytes % (Manual) Eosinophils % (Manual) Basophils % (Manual) Seg Neutrophils # Seg Neutrophils # Man Lymphocytes # (Manual) Monocytes # (Manual) Eosinophils # (Manual) Nucleated RBC % Basophils # (Manual) APTT Heparin Anti-Xa Level 0.10 L 0.16 L ABG pH POC ABG pO2 ABG pO2 ABG HCO3 ABG O2 Saturation ABG Base Excess POC ABG pCO2 ABG Hemoglobin ABG Oxyhemoglobin Oxyhemoglobin Sodium Potassium Chloride Carbon Dioxide BUN Creatinine Glucose POC Glucose Lactic Acid Calcium Phosphorus Magnesium AST ALT Lactate Dehydrogenase CK-MB (CK-2) C-Reactive Protein NT-Pro-B Natriuret Pep Total Protein Albumin Urine WBC (Auto) 12/11/19 12/11/19 12/11/19 08:36 11:45 17:15 WBC RBC Hgb Hct MCHC RDW MCH Lymph % (Auto) [place] % (Auto) [place] # Eos # Lymph # (Auto) [place] # (Auto) Eos # (Auto) Seg Neutrophils % Seg Neuts % (Manual) Baso # (Auto) Lymphocytes % (Manual) Monocytes % (Manual) Eosinophils % (Manual) Basophils % (Manual) Seg Neutrophils # Seg Neutrophils # Man Lymphocytes # (Manual) Monocytes # (Manual) Eosinophils # (Manual) Nucleated RBC % Basophils # (Manual) APTT Heparin Anti-Xa Level ABG pH POC ABG pO2 ABG pO2 ABG HCO3 ABG O2 Saturation ABG Base Excess POC ABG pCO2 ABG Hemoglobin ABG Oxyhemoglobin Oxyhemoglobin Sodium Potassium Chloride Carbon Dioxide BUN Creatinine 0.5 L Glucose 128 H POC Glucose 136 H 109 H Lactic Acid Calcium Phosphorus Magnesium AST ALT Lactate Dehydrogenase CK-MB (CK-2) C-Reactive Protein NT-Pro-B Natriuret Pep Total Protein Albumin Urine WBC (Auto) 12/12/19 12/12/19 12/12/19 00:03 05:53 05:53 WBC RBC Hgb 8.8 L Hct 27.6 L MCHC RDW MCH Lymph % (Auto) [place] % (Auto) [place] # Eos # Lymph # (Auto) [place] # (Auto) Eos # (Auto) Seg Neutrophils % Seg Neuts % (Manual) Baso # (Auto) Lymphocytes % (Manual) Monocytes % (Manual) Eosinophils % (Manual) Basophils % (Manual) Seg Neutrophils # Seg Neutrophils # Man Lymphocytes # (Manual) Monocytes # (Manual) Eosinophils # (Manual) Nucleated RBC % Basophils # (Manual) APTT Heparin Anti-Xa Level 0.22 L ABG pH POC ABG pO2 ABG pO2 ABG HCO3 ABG O2 Saturation ABG Base Excess POC ABG pCO2 ABG Hemoglobin ABG Oxyhemoglobin Oxyhemoglobin Sodium Potassium Chloride Carbon Dioxide BUN Creatinine Glucose POC Glucose 116 H Lactic Acid Calcium Phosphorus Magnesium AST ALT Lactate Dehydrogenase CK-MB (CK-2) C-Reactive Protein NT-Pro-B Natriuret Pep Total Protein Albumin Urine WBC (Auto) 12/12/19 12/12/19 12/12/19 09:38 12:18 17:44 WBC RBC Hgb Hct MCHC RDW MCH Lymph % (Auto) [place] % (Auto) [place] # Eos # Lymph # (Auto) [place] # (Auto) Eos # (Auto) Seg Neutrophils % Seg Neuts % (Manual) Baso # (Auto) Lymphocytes % (Manual) Monocytes % (Manual) Eosinophils % (Manual) Basophils % (Manual) Seg Neutrophils # Seg Neutrophils # Man Lymphocytes # (Manual) Monocytes # (Manual) Eosinophils # (Manual) Nucleated RBC % Basophils # (Manual) APTT Heparin Anti-Xa Level ABG pH POC ABG pO2 ABG pO2 ABG HCO3 ABG O2 Saturation ABG Base Excess POC ABG pCO2 ABG Hemoglobin ABG Oxyhemoglobin Oxyhemoglobin Sodium Potassium Chloride Carbon Dioxide BUN Creatinine Glucose POC Glucose 115 H 146 H 146 H Lactic Acid Calcium Phosphorus Magnesium AST ALT Lactate Dehydrogenase CK-MB (CK-2) C-Reactive Protein NT-Pro-B Natriuret Pep Total Protein Albumin Urine WBC (Auto) 12/12/19 12/13/19 12/13/19 23:33 05:32 05:32 WBC 13.1 H RBC 3.27 L Hgb 9.5 L Hct 29.3 L MCHC RDW 15.6 H MCH Lymph % (Auto) [place] % (Auto) [place] # Eos # Lymph # (Auto) [place] # (Auto) Eos # (Auto) Seg Neutrophils % Seg Neuts % (Manual) 74.0 H Baso # (Auto) Lymphocytes % (Manual) 8.0 L Monocytes % (Manual) 9.0 H Eosinophils % (Manual) 5.0 H Basophils % (Manual) Seg Neutrophils # Seg Neutrophils # Man 9.7 H Lymphocytes # (Manual) 1.0 L Monocytes # (Manual) 1.2 H Eosinophils # (Manual) 0.7 H Nucleated RBC % Basophils # (Manual) APTT Heparin Anti-Xa Level 0.20 L ABG pH POC ABG pO2 ABG pO2 ABG HCO3 ABG O2 Saturation ABG Base Excess POC ABG pCO2 ABG Hemoglobin ABG Oxyhemoglobin Oxyhemoglobin Sodium Potassium Chloride Carbon Dioxide BUN Creatinine Glucose POC Glucose 126 H Lactic Acid Calcium Phosphorus Magnesium AST ALT Lactate Dehydrogenase CK-MB (CK-2) C-Reactive Protein NT-Pro-B Natriuret Pep Total Protein Albumin Urine WBC (Auto) 12/13/19 12/13/19 12/13/19 05:32 05:46 11:57 WBC RBC Hgb Hct MCHC RDW MCH Lymph % (Auto) [place] % (Auto) [place] # Eos # Lymph # (Auto) [place] # (Auto) Eos # (Auto) Seg Neutrophils % Seg Neuts % (Manual) Baso # (Auto) Lymphocytes % (Manual) Monocytes % (Manual) Eosinophils % (Manual) Basophils % (Manual) Seg Neutrophils # Seg Neutrophils # Man Lymphocytes # (Manual) Monocytes # (Manual) Eosinophils # (Manual) Nucleated RBC % Basophils # (Manual) APTT Heparin Anti-Xa Level ABG pH POC ABG pO2 ABG pO2 ABG HCO3 ABG O2 Saturation ABG Base Excess POC ABG pCO2 ABG Hemoglobin ABG Oxyhemoglobin Oxyhemoglobin Sodium Potassium Chloride Carbon Dioxide 31 H BUN Creatinine 0.6 L Glucose 114 H POC Glucose 118 H 133 H Lactic Acid Calcium Phosphorus Magnesium AST ALT Lactate Dehydrogenase CK-MB (CK-2) C-Reactive Protein NT-Pro-B Natriuret Pep Total Protein Albumin Urine WBC (Auto) 12/13/19 12/13/19 12/14/19 17:44 23:46 05:32 WBC RBC Hgb Hct MCHC RDW MCH Lymph % (Auto) [place] % (Auto) [place] # Eos # Lymph # (Auto) [place] # (Auto) Eos # (Auto) Seg Neutrophils % Seg Neuts % (Manual) Baso # (Auto) Lymphocytes % (Manual) Monocytes % (Manual) Eosinophils % (Manual) Basophils % (Manual) Seg Neutrophils # Seg Neutrophils # Man Lymphocytes # (Manual) Monocytes # (Manual) Eosinophils # (Manual) Nucleated RBC % Basophils # (Manual) APTT Heparin Anti-Xa Level ABG pH POC ABG pO2 ABG pO2 ABG HCO3 ABG O2 Saturation ABG Base Excess POC ABG pCO2 ABG Hemoglobin ABG Oxyhemoglobin Oxyhemoglobin Sodium Potassium Chloride Carbon Dioxide BUN Creatinine Glucose POC Glucose 161 H 126 H 139 H Lactic Acid Calcium Phosphorus Magnesium AST ALT Lactate Dehydrogenase CK-MB (CK-2) C-Reactive Protein NT-Pro-B Natriuret Pep Total Protein Albumin Urine WBC (Auto) 12/14/19 12/14/19 12/14/19 06:03 06:03 09:37 WBC RBC Hgb 9.6 L Hct 30.4 L MCHC RDW MCH Lymph % (Auto) [place] % (Auto) [place] # Eos # Lymph # (Auto) [place] # (Auto) Eos # (Auto) Seg Neutrophils % Seg Neuts % (Manual) Baso # (Auto) Lymphocytes % (Manual) Monocytes % (Manual) Eosinophils % (Manual) Basophils % (Manual) Seg Neutrophils # Seg Neutrophils # Man Lymphocytes # (Manual) Monocytes # (Manual) Eosinophils # (Manual) Nucleated RBC % Basophils # (Manual) APTT Heparin Anti-Xa Level 0.24 L ABG pH POC ABG pO2 ABG pO2 ABG HCO3 ABG O2 Saturation ABG Base Excess POC ABG pCO2 ABG Hemoglobin ABG Oxyhemoglobin Oxyhemoglobin Sodium Potassium Chloride Carbon Dioxide BUN Creatinine 0.6 L Glucose 162 H POC Glucose Lactic Acid Calcium Phosphorus Magnesium AST 71 H ALT 118 H Lactate Dehydrogenase CK-MB (CK-2) C-Reactive Protein NT-Pro-B Natriuret Pep Total Protein 6.2 L Albumin 2.3 L Urine WBC (Auto) 12/14/19 12/14/19 12/15/19 12:06 18:18 00:19 WBC RBC Hgb Hct MCHC RDW MCH Lymph % (Auto) [place] % (Auto) [place] # Eos # Lymph # (Auto) [place] # (Auto) Eos # (Auto) Seg Neutrophils % Seg Neuts % (Manual) Baso # (Auto) Lymphocytes % (Manual) Monocytes % (Manual) Eosinophils % (Manual) Basophils % (Manual) Seg Neutrophils # Seg Neutrophils # Man Lymphocytes # (Manual) Monocytes # (Manual) Eosinophils # (Manual) Nucleated RBC % Basophils # (Manual) APTT Heparin Anti-Xa Level ABG pH POC ABG pO2 ABG pO2 ABG HCO3 ABG O2 Saturation ABG Base Excess POC ABG pCO2 ABG Hemoglobin ABG Oxyhemoglobin Oxyhemoglobin Sodium Potassium Chloride Carbon Dioxide BUN Creatinine Glucose POC Glucose 147 H 166 H 123 H Lactic Acid Calcium Phosphorus Magnesium AST ALT Lactate Dehydrogenase CK-MB (CK-2) C-Reactive Protein NT-Pro-B Natriuret Pep Total Protein Albumin Urine WBC (Auto) 12/15/19 12/15/19 12/15/19 05:28 05:29 05:29 WBC 14.9 H RBC 3.19 L Hgb 9.1 L Hct 28.7 L MCHC RDW 16.0 H MCH Lymph % (Auto) [place] % (Auto) [place] # Eos # Lymph # (Auto) [place] # (Auto) Eos # (Auto) Seg Neutrophils % Seg Neuts % (Manual) Baso # (Auto) Lymphocytes % (Manual) Monocytes % (Manual) Eosinophils % (Manual) Basophils % (Manual) Seg Neutrophils # Seg Neutrophils # Man Lymphocytes # (Manual) Monocytes # (Manual) Eosinophils # (Manual) Nucleated RBC % Basophils # (Manual) APTT Heparin Anti-Xa Level 0.19 L ABG pH POC ABG pO2 ABG pO2 ABG HCO3 ABG O2 Saturation ABG Base Excess POC ABG pCO2 ABG Hemoglobin ABG Oxyhemoglobin Oxyhemoglobin Sodium Potassium Chloride Carbon Dioxide BUN Creatinine 0.6 L Glucose 110 H POC Glucose Lactic Acid Calcium Phosphorus Magnesium AST ALT Lactate Dehydrogenase CK-MB (CK-2) C-Reactive Protein NT-Pro-B Natriuret Pep Total Protein Albumin Urine WBC (Auto) 12/15/19 12/15/19 12/15/19 05:53 11:50 17:26 WBC RBC Hgb Hct MCHC RDW MCH Lymph % (Auto) [place] % (Auto) [place] # Eos # Lymph # (Auto) [place] # (Auto) Eos # (Auto) Seg Neutrophils % Seg Neuts % (Manual) Baso # (Auto) Lymphocytes % (Manual) Monocytes % (Manual) Eosinophils % (Manual) Basophils % (Manual) Seg Neutrophils # Seg Neutrophils # Man Lymphocytes # (Manual) Monocytes # (Manual) Eosinophils # (Manual) Nucleated RBC % Basophils # (Manual) APTT Heparin Anti-Xa Level ABG pH POC ABG pO2 ABG pO2 ABG HCO3 ABG O2 Saturation ABG Base Excess POC ABG pCO2 ABG Hemoglobin ABG Oxyhemoglobin Oxyhemoglobin Sodium Potassium Chloride Carbon Dioxide BUN Creatinine Glucose POC Glucose 119 H 132 H 128 H Lactic Acid Calcium Phosphorus Magnesium AST ALT Lactate Dehydrogenase CK-MB (CK-2) C-Reactive Protein NT-Pro-B Natriuret Pep Total Protein Albumin Urine WBC (Auto) 12/15/19 12/16/19 12/16/19 23:11 05:30 05:46 WBC RBC Hgb 8.8 L Hct 27.9 L MCHC RDW MCH Lymph % (Auto) [place] % (Auto) [place] # Eos # Lymph # (Auto) [place] # (Auto) Eos # (Auto) Seg Neutrophils % Seg Neuts % (Manual) Baso # (Auto) Lymphocytes % (Manual) Monocytes % (Manual) Eosinophils % (Manual) Basophils % (Manual) Seg Neutrophils # Seg Neutrophils # Man Lymphocytes # (Manual) Monocytes # (Manual) Eosinophils # (Manual) Nucleated RBC % Basophils # (Manual) APTT Heparin Anti-Xa Level ABG pH POC ABG pO2 ABG pO2 ABG HCO3 ABG O2 Saturation ABG Base Excess POC ABG pCO2 ABG Hemoglobin ABG Oxyhemoglobin Oxyhemoglobin Sodium Potassium Chloride Carbon Dioxide BUN Creatinine Glucose POC Glucose 150 H 134 H Lactic Acid Calcium Phosphorus Magnesium AST ALT Lactate Dehydrogenase CK-MB (CK-2) C-Reactive Protein NT-Pro-B Natriuret Pep Total Protein Albumin Urine WBC (Auto) 12/16/19 12/16/19 12/16/19 05:46 05:46 11:44 WBC RBC Hgb Hct MCHC RDW MCH Lymph % (Auto) [place] % (Auto) [place] # Eos # Lymph # (Auto) [place] # (Auto) Eos # (Auto) Seg Neutrophils % Seg Neuts % (Manual) Baso # (Auto) Lymphocytes % (Manual) Monocytes % (Manual) Eosinophils % (Manual) Basophils % (Manual) Seg Neutrophils # Seg Neutrophils # Man Lymphocytes # (Manual) Monocytes # (Manual) Eosinophils # (Manual) Nucleated RBC % Basophils # (Manual) APTT Heparin Anti-Xa Level 0.20 L ABG pH POC ABG pO2 ABG pO2 ABG HCO3 ABG O2 Saturation ABG Base Excess POC ABG pCO2 ABG Hemoglobin ABG Oxyhemoglobin Oxyhemoglobin Sodium Potassium Chloride Carbon Dioxide 31 H BUN Creatinine 0.5 L Glucose 147 H POC Glucose 164 H Lactic Acid Calcium Phosphorus Magnesium AST ALT Lactate Dehydrogenase CK-MB (CK-2) C-Reactive Protein NT-Pro-B Natriuret Pep Total Protein Albumin Urine WBC (Auto) 12/16/19 12/16/19 12/17/19 17:17 23:49 05:30 WBC 13.9 H RBC 3.27 L Hgb 9.4 L Hct 29.2 L MCHC RDW 16.0 H MCH Lymph % (Auto) [place] % (Auto) 8.8 H [place] # Eos # Lymph # (Auto) [place] # (Auto) 1.2 H Eos # (Auto) 0.5 H Seg Neutrophils % 70.5 H Seg Neuts % (Manual) Baso # (Auto) 0.2 H Lymphocytes % (Manual) Monocytes % (Manual) Eosinophils % (Manual) Basophils % (Manual) Seg Neutrophils # 9.8 H Seg Neutrophils # Man Lymphocytes # (Manual) Monocytes # (Manual) Eosinophils # (Manual) Nucleated RBC % Basophils # (Manual) APTT Heparin Anti-Xa Level ABG pH POC ABG pO2 ABG pO2 ABG HCO3 ABG O2 Saturation ABG Base Excess POC ABG pCO2 ABG Hemoglobin ABG Oxyhemoglobin Oxyhemoglobin Sodium Potassium Chloride Carbon Dioxide BUN Creatinine Glucose POC Glucose 162 H 144 H Lactic Acid Calcium Phosphorus Magnesium AST ALT Lactate Dehydrogenase CK-MB (CK-2) C-Reactive Protein NT-Pro-B Natriuret Pep Total Protein Albumin Urine WBC (Auto) 12/17/19 12/17/19 12/17/19 05:30 06:06 11:50 WBC RBC Hgb Hct MCHC RDW MCH Lymph % (Auto) [place] % (Auto) [place] # Eos # Lymph # (Auto) [place] # (Auto) Eos # (Auto) Seg Neutrophils % Seg Neuts % (Manual) Baso # (Auto) Lymphocytes % (Manual) Monocytes % (Manual) Eosinophils % (Manual) Basophils % (Manual) Seg Neutrophils # Seg Neutrophils # Man Lymphocytes # (Manual) Monocytes # (Manual) Eosinophils # (Manual) Nucleated RBC % Basophils # (Manual) APTT Heparin Anti-Xa Level ABG pH POC ABG pO2 ABG pO2 ABG HCO3 ABG O2 Saturation ABG Base Excess POC ABG pCO2 ABG Hemoglobin ABG Oxyhemoglobin Oxyhemoglobin Sodium Potassium Chloride 97.4 L Carbon Dioxide 32 H BUN Creatinine 0.5 L Glucose 135 H POC Glucose 151 H 140 H Lactic Acid Calcium Phosphorus Magnesium AST ALT Lactate Dehydrogenase CK-MB (CK-2) C-Reactive Protein NT-Pro-B Natriuret Pep Total Protein Albumin Urine WBC (Auto) 12/17/19 12/17/19 12/18/19 17:50 23:46 05:17 WBC RBC Hgb 8.8 L Hct 28.0 L MCHC RDW MCH Lymph % (Auto) [place] % (Auto) [place] # Eos # Lymph # (Auto) [place] # (Auto) Eos # (Auto) Seg Neutrophils % Seg Neuts % (Manual) Baso # (Auto) Lymphocytes % (Manual) Monocytes % (Manual) Eosinophils % (Manual) Basophils % (Manual) Seg Neutrophils # Seg Neutrophils # Man Lymphocytes # (Manual) Monocytes # (Manual) Eosinophils # (Manual) Nucleated RBC % Basophils # (Manual) APTT Heparin Anti-Xa Level ABG pH POC ABG pO2 ABG pO2 ABG HCO3 ABG O2 Saturation ABG Base Excess POC ABG pCO2 ABG Hemoglobin ABG Oxyhemoglobin Oxyhemoglobin Sodium Potassium Chloride Carbon Dioxide BUN Creatinine Glucose POC Glucose 158 H 150 H Lactic Acid Calcium Phosphorus Magnesium AST ALT Lactate Dehydrogenase CK-MB (CK-2) C-Reactive Protein NT-Pro-B Natriuret Pep Total Protein Albumin Urine WBC (Auto) 12/18/19 12/18/19 12/18/19 05:17 05:49 11:12 WBC RBC Hgb Hct MCHC RDW MCH Lymph % (Auto) [place] % (Auto) [place] # Eos # Lymph # (Auto) [place] # (Auto) Eos # (Auto) Seg Neutrophils % Seg Neuts % (Manual) Baso # (Auto) Lymphocytes % (Manual) Monocytes % (Manual) Eosinophils % (Manual) Basophils % (Manual) Seg Neutrophils # Seg Neutrophils # Man Lymphocytes # (Manual) Monocytes # (Manual) Eosinophils # (Manual) Nucleated RBC % Basophils # (Manual) APTT Heparin Anti-Xa Level 0.16 L ABG pH POC ABG pO2 ABG pO2 ABG HCO3 ABG O2 Saturation ABG Base Excess POC ABG pCO2 ABG Hemoglobin ABG Oxyhemoglobin Oxyhemoglobin Sodium Potassium Chloride Carbon Dioxide BUN Creatinine Glucose POC Glucose 127 H 191 H Lactic Acid Calcium Phosphorus Magnesium AST ALT Lactate Dehydrogenase CK-MB (CK-2) C-Reactive Protein NT-Pro-B Natriuret Pep Total Protein Albumin Urine WBC (Auto) 12/18/19 12/18/19 12/19/19 17:03 20:16 00:08 WBC RBC Hgb Hct MCHC RDW MCH Lymph % (Auto) [place] % (Auto) [place] # Eos # Lymph # (Auto) [place] # (Auto) Eos # (Auto) Seg Neutrophils % Seg Neuts % (Manual) Baso # (Auto) Lymphocytes % (Manual) Monocytes % (Manual) Eosinophils % (Manual) Basophils % (Manual) Seg Neutrophils # Seg Neutrophils # Man Lymphocytes # (Manual) Monocytes # (Manual) Eosinophils # (Manual) Nucleated RBC % Basophils # (Manual) APTT Heparin Anti-Xa Level ABG pH POC ABG pO2 ABG pO2 ABG HCO3 ABG O2 Saturation ABG Base Excess POC ABG pCO2 ABG Hemoglobin ABG Oxyhemoglobin Oxyhemoglobin Sodium Potassium Chloride Carbon Dioxide BUN Creatinine Glucose POC Glucose 133 H 128 H 129 H Lactic Acid Calcium Phosphorus Magnesium AST ALT Lactate Dehydrogenase CK-MB (CK-2) C-Reactive Protein NT-Pro-B Natriuret Pep Total Protein Albumin Urine WBC (Auto) 12/19/19 12/19/19 12/19/19 04:45 04:45 05:35 WBC RBC Hgb Hct MCHC RDW MCH Lymph % (Auto) [place] % (Auto) [place] # Eos # Lymph # (Auto) [place] # (Auto) Eos # (Auto) Seg Neutrophils % Seg Neuts % (Manual) Baso # (Auto) Lymphocytes % (Manual) Monocytes % (Manual) Eosinophils % (Manual) Basophils % (Manual) Seg Neutrophils # Seg Neutrophils # Man Lymphocytes # (Manual) Monocytes # (Manual) Eosinophils # (Manual) Nucleated RBC % Basophils # (Manual) APTT Heparin Anti-Xa Level 0.17 L ABG pH POC ABG pO2 ABG pO2 ABG HCO3 ABG O2 Saturation ABG Base Excess POC ABG pCO2 ABG Hemoglobin ABG Oxyhemoglobin Oxyhemoglobin Sodium Potassium Chloride Carbon Dioxide BUN Creatinine Glucose POC Glucose 120 H Lactic Acid Calcium Phosphorus Magnesium AST ALT Lactate Dehydrogenase 228 H CK-MB (CK-2) C-Reactive Protein NT-Pro-B Natriuret Pep Total Protein Albumin Urine WBC (Auto) 12/19/19 12/19/19 12/19/19 09:20 11:32 11:32 WBC 14.6 H RBC 3.08 L Hgb 9.0 L Hct 26.8 L MCHC RDW 15.9 H MCH Lymph % (Auto) [place] % (Auto) [place] # Eos # Lymph # (Auto) [place] # (Auto) Eos # (Auto) Seg Neutrophils % Seg Neuts % (Manual) 82.0 H Baso # (Auto) Lymphocytes % (Manual) 10.0 L Monocytes % (Manual) Eosinophils % (Manual) Basophils % (Manual) Seg Neutrophils # Seg Neutrophils # Man 12.0 H Lymphocytes # (Manual) Monocytes # (Manual) 0.9 H Eosinophils # (Manual) Nucleated RBC % 1.0 H Basophils # (Manual) APTT Heparin Anti-Xa Level ABG pH 7.451 H POC ABG pO2 ABG pO2 62.6 L ABG HCO3 33.2 H ABG O2 Saturation 93.8 L ABG Base Excess 8.3 H POC ABG pCO2 ABG Hemoglobin 8.3 L ABG Oxyhemoglobin Oxyhemoglobin 91.9 L Sodium Potassium Chloride 95.0 L Carbon Dioxide 33 H BUN 22 H Creatinine 0.6 L Glucose 150 H POC Glucose Lactic Acid Calcium Phosphorus Magnesium AST ALT Lactate Dehydrogenase CK-MB (CK-2) C-Reactive Protein NT-Pro-B Natriuret Pep Total Protein 6.2 L Albumin 2.4 L Urine WBC (Auto) 12/19/19 12/19/19 12/20/19 11:56 18:17 00:09 WBC RBC Hgb Hct MCHC RDW MCH Lymph % (Auto) [place] % (Auto) [place] # Eos # Lymph # (Auto) [place] # (Auto) Eos # (Auto) Seg Neutrophils % Seg Neuts % (Manual) Baso # (Auto) Lymphocytes % (Manual) Monocytes % (Manual) Eosinophils % (Manual) Basophils % (Manual) Seg Neutrophils # Seg Neutrophils # Man Lymphocytes # (Manual) Monocytes # (Manual) Eosinophils # (Manual) Nucleated RBC % Basophils # (Manual) APTT Heparin Anti-Xa Level ABG pH POC ABG pO2 ABG pO2 ABG HCO3 ABG O2 Saturation ABG Base Excess POC ABG pCO2 ABG Hemoglobin ABG Oxyhemoglobin Oxyhemoglobin Sodium Potassium Chloride Carbon Dioxide BUN Creatinine Glucose POC Glucose 156 H 156 H 155 H Lactic Acid Calcium Phosphorus Magnesium AST ALT Lactate Dehydrogenase CK-MB (CK-2) C-Reactive Protein NT-Pro-B Natriuret Pep Total Protein Albumin Urine WBC (Auto) 12/20/19 12/20/19 12/20/19 05:26 06:02 18:17 WBC RBC Hgb Hct MCHC RDW MCH Lymph % (Auto) [place] % (Auto) [place] # Eos # Lymph # (Auto) [place] # (Auto) Eos # (Auto) Seg Neutrophils % Seg Neuts % (Manual) Baso # (Auto) Lymphocytes % (Manual) Monocytes % (Manual) Eosinophils % (Manual) Basophils % (Manual) Seg Neutrophils # Seg Neutrophils # Man Lymphocytes # (Manual) Monocytes # (Manual) Eosinophils # (Manual) Nucleated RBC % Basophils # (Manual) APTT Heparin Anti-Xa Level 0.19 L ABG pH POC ABG pO2 ABG pO2 ABG HCO3 ABG O2 Saturation ABG Base Excess POC ABG pCO2 ABG Hemoglobin ABG Oxyhemoglobin Oxyhemoglobin Sodium Potassium Chloride Carbon Dioxide BUN Creatinine Glucose POC Glucose 137 H 128 H Lactic Acid Calcium Phosphorus Magnesium AST ALT Lactate Dehydrogenase CK-MB (CK-2) C-Reactive Protein NT-Pro-B Natriuret Pep Total Protein Albumin Urine WBC (Auto) 12/20/19 12/21/19 12/21/19 23:34 05:31 05:31 WBC 12.7 H RBC 3.09 L Hgb 8.9 L Hct 27.4 L MCHC RDW 15.8 H MCH Lymph % (Auto) 12.1 L [place] % (Auto) 7.8 H [place] # Eos # Lymph # (Auto) [place] # (Auto) 1.0 H Eos # (Auto) Seg Neutrophils % 77.1 H Seg Neuts % (Manual) Baso # (Auto) Lymphocytes % (Manual) Monocytes % (Manual) Eosinophils % (Manual) Basophils % (Manual) Seg Neutrophils # 9.8 H Seg Neutrophils # Man Lymphocytes # (Manual) Monocytes # (Manual) Eosinophils # (Manual) Nucleated RBC % Basophils # (Manual) APTT Heparin Anti-Xa Level ABG pH POC ABG pO2 ABG pO2 ABG HCO3 ABG O2 Saturation ABG Base Excess POC ABG pCO2 ABG Hemoglobin ABG Oxyhemoglobin Oxyhemoglobin Sodium Potassium Chloride 96.9 L Carbon Dioxide 37 H BUN 27 H Creatinine 0.7 L Glucose 140 H POC Glucose 145 H Lactic Acid Calcium Phosphorus Magnesium AST ALT Lactate Dehydrogenase CK-MB (CK-2) C-Reactive Protein NT-Pro-B Natriuret Pep Total Protein Albumin Urine WBC (Auto) 12/21/19 12/21/19 12/21/19 05:38 10:13 11:51 WBC RBC Hgb Hct MCHC RDW MCH Lymph % (Auto) [place] % (Auto) [place] # Eos # Lymph # (Auto) [place] # (Auto) Eos # (Auto) Seg Neutrophils % Seg Neuts % (Manual) Baso # (Auto) Lymphocytes % (Manual) Monocytes % (Manual) Eosinophils % (Manual) Basophils % (Manual) Seg Neutrophils # Seg Neutrophils # Man Lymphocytes # (Manual) Monocytes # (Manual) Eosinophils # (Manual) Nucleated RBC % Basophils # (Manual) APTT 23.9 L Heparin Anti-Xa Level < 0.10 L ABG pH POC ABG pO2 ABG pO2 ABG HCO3 ABG O2 Saturation ABG Base Excess POC ABG pCO2 ABG Hemoglobin ABG Oxyhemoglobin Oxyhemoglobin Sodium Potassium Chloride Carbon Dioxide BUN Creatinine Glucose POC Glucose 151 H 145 H Lactic Acid Calcium Phosphorus Magnesium AST ALT Lactate Dehydrogenase CK-MB (CK-2) C-Reactive Protein NT-Pro-B Natriuret Pep Total Protein Albumin Urine WBC (Auto) 12/21/19 12/22/19 12/22/19 17:16 00:01 01:33 WBC RBC Hgb Hct MCHC RDW MCH Lymph % (Auto) [place] % (Auto) [place] # Eos # Lymph # (Auto) [place] # (Auto) Eos # (Auto) Seg Neutrophils % Seg Neuts % (Manual) Baso # (Auto) Lymphocytes % (Manual) Monocytes % (Manual) Eosinophils % (Manual) Basophils % (Manual) Seg Neutrophils # Seg Neutrophils # Man Lymphocytes # (Manual) Monocytes # (Manual) Eosinophils # (Manual) Nucleated RBC % Basophils # (Manual) APTT Heparin Anti-Xa Level 0.10 L ABG pH POC ABG pO2 ABG pO2 ABG HCO3 ABG O2 Saturation ABG Base Excess POC ABG pCO2 ABG Hemoglobin ABG Oxyhemoglobin Oxyhemoglobin Sodium Potassium Chloride Carbon Dioxide BUN Creatinine Glucose POC Glucose 167 H 179 H Lactic Acid Calcium Phosphorus Magnesium AST ALT Lactate Dehydrogenase CK-MB (CK-2) C-Reactive Protein NT-Pro-B Natriuret Pep Total Protein Albumin Urine WBC (Auto) 12/22/19 12/22/19 12/22/19 03:22 05:10 05:10 WBC 13.8 H RBC 3.20 L Hgb 8.9 L Hct 28.1 L MCHC RDW 15.9 H MCH Lymph % (Auto) [place] % (Auto) [place] # Eos # Lymph # (Auto) [place] # (Auto) Eos # (Auto) Seg Neutrophils % Seg Neuts % (Manual) Baso # (Auto) Lymphocytes % (Manual) Monocytes % (Manual) Eosinophils % (Manual) Basophils % (Manual) Seg Neutrophils # Seg Neutrophils # Man Lymphocytes # (Manual) Monocytes # (Manual) Eosinophils # (Manual) Nucleated RBC % Basophils # (Manual) APTT Heparin Anti-Xa Level ABG pH POC ABG pO2 52.3 L ABG pO2 ABG HCO3 ABG O2 Saturation ABG Base Excess POC ABG pCO2 52.9 H ABG Hemoglobin 10.7 L ABG Oxyhemoglobin 84 L Oxyhemoglobin Sodium Potassium Chloride 96.6 L Carbon Dioxide BUN 25 H Creatinine 0.7 L Glucose 129 H POC Glucose Lactic Acid Calcium Phosphorus Magnesium AST ALT Lactate Dehydrogenase CK-MB (CK-2) C-Reactive Protein NT-Pro-B Natriuret Pep Total Protein Albumin Urine WBC (Auto) 12/22/19 12/22/19 12/22/19 05:18 12:32 12:43 WBC RBC Hgb Hct MCHC RDW MCH Lymph % (Auto) [place] % (Auto) [place] # Eos # Lymph # (Auto) [place] # (Auto) Eos # (Auto) Seg Neutrophils % Seg Neuts % (Manual) Baso # (Auto) Lymphocytes % (Manual) Monocytes % (Manual) Eosinophils % (Manual) Basophils % (Manual) Seg Neutrophils # Seg Neutrophils # Man Lymphocytes # (Manual) Monocytes # (Manual) Eosinophils # (Manual) Nucleated RBC % Basophils # (Manual) APTT Heparin Anti-Xa Level 0.18 L ABG pH POC ABG pO2 ABG pO2 ABG HCO3 ABG O2 Saturation ABG Base Excess POC ABG pCO2 ABG Hemoglobin ABG Oxyhemoglobin Oxyhemoglobin Sodium Potassium Chloride Carbon Dioxide BUN Creatinine Glucose POC Glucose 131 H 208 H Lactic Acid Calcium Phosphorus Magnesium AST ALT Lactate Dehydrogenase CK-MB (CK-2) C-Reactive Protein NT-Pro-B Natriuret Pep Total Protein Albumin Urine WBC (Auto) 12/22/19 12/22/19 12/23/19 17:44 23:20 03:51 WBC 15.2 H RBC 3.43 L Hgb 9.6 L Hct 30.3 L MCHC RDW 15.9 H MCH Lymph % (Auto) [place] % (Auto) [place] # Eos # Lymph # (Auto) [place] # (Auto) Eos # (Auto) Seg Neutrophils % Seg Neuts % (Manual) Baso # (Auto) Lymphocytes % (Manual) Monocytes % (Manual) Eosinophils % (Manual) Basophils % (Manual) Seg Neutrophils # Seg Neutrophils # Man Lymphocytes # (Manual) Monocytes # (Manual) Eosinophils # (Manual) Nucleated RBC % Basophils # (Manual) APTT Heparin Anti-Xa Level ABG pH POC ABG pO2 ABG pO2 ABG HCO3 ABG O2 Saturation ABG Base Excess POC ABG pCO2 ABG Hemoglobin ABG Oxyhemoglobin Oxyhemoglobin Sodium Potassium Chloride Carbon Dioxide BUN Creatinine Glucose POC Glucose 209 H 119 H Lactic Acid Calcium Phosphorus Magnesium AST ALT Lactate Dehydrogenase CK-MB (CK-2) C-Reactive Protein NT-Pro-B Natriuret Pep Total Protein Albumin Urine WBC (Auto) 12/23/19 12/23/19 12/23/19 03:51 05:31 12:09 WBC RBC Hgb Hct MCHC RDW MCH Lymph % (Auto) [place] % (Auto) [place] # Eos # Lymph # (Auto) [place] # (Auto) Eos # (Auto) Seg Neutrophils % Seg Neuts % (Manual) Baso # (Auto) Lymphocytes % (Manual) Monocytes % (Manual) Eosinophils % (Manual) Basophils % (Manual) Seg Neutrophils # Seg Neutrophils # Man Lymphocytes # (Manual) Monocytes # (Manual) Eosinophils # (Manual) Nucleated RBC % Basophils # (Manual) APTT Heparin Anti-Xa Level ABG pH POC ABG pO2 ABG pO2 ABG HCO3 ABG O2 Saturation ABG Base Excess POC ABG pCO2 ABG Hemoglobin ABG Oxyhemoglobin Oxyhemoglobin Sodium Potassium Chloride 97.2 L Carbon Dioxide 31 H BUN 23 H Creatinine 0.6 L Glucose 153 H POC Glucose 149 H 144 H Lactic Acid Calcium Phosphorus Magnesium AST ALT Lactate Dehydrogenase CK-MB (CK-2) C-Reactive Protein NT-Pro-B Natriuret Pep Total Protein Albumin Urine WBC (Auto) 12/23/19 12/23/19 12/23/19 15:30 17:49 23:31 WBC RBC Hgb Hct MCHC RDW MCH Lymph % (Auto) [place] % (Auto) [place] # Eos # Lymph # (Auto) [place] # (Auto) Eos # (Auto) Seg Neutrophils % Seg Neuts % (Manual) Baso # (Auto) Lymphocytes % (Manual) Monocytes % (Manual) Eosinophils % (Manual) Basophils % (Manual) Seg Neutrophils # Seg Neutrophils # Man Lymphocytes # (Manual) Monocytes # (Manual) Eosinophils # (Manual) Nucleated RBC % Basophils # (Manual) APTT Heparin Anti-Xa Level 0.21 L ABG pH POC ABG pO2 ABG pO2 ABG HCO3 ABG O2 Saturation ABG Base Excess POC ABG pCO2 ABG Hemoglobin ABG Oxyhemoglobin Oxyhemoglobin Sodium Potassium Chloride Carbon Dioxide BUN Creatinine Glucose POC Glucose 192 H 151 H Lactic Acid Calcium Phosphorus Magnesium AST ALT Lactate Dehydrogenase CK-MB (CK-2) C-Reactive Protein NT-Pro-B Natriuret Pep Total Protein Albumin Urine WBC (Auto) 12/24/19 12/24/19 12/24/19 05:34 12:13 16:50 WBC RBC Hgb Hct MCHC RDW MCH Lymph % (Auto) [place] % (Auto) [place] # Eos # Lymph # (Auto) [place] # (Auto) Eos # (Auto) Seg Neutrophils % Seg Neuts % (Manual) Baso # (Auto) Lymphocytes % (Manual) Monocytes % (Manual) Eosinophils % (Manual) Basophils % (Manual) Seg Neutrophils # Seg Neutrophils # Man Lymphocytes # (Manual) Monocytes # (Manual) Eosinophils # (Manual) Nucleated RBC % Basophils # (Manual) APTT Heparin Anti-Xa Level 0.16 L ABG pH POC ABG pO2 ABG pO2 ABG HCO3 ABG O2 Saturation ABG Base Excess POC ABG pCO2 ABG Hemoglobin ABG Oxyhemoglobin Oxyhemoglobin Sodium Potassium Chloride Carbon Dioxide BUN Creatinine Glucose POC Glucose 145 H 124 H Lactic Acid Calcium Phosphorus Magnesium AST ALT Lactate Dehydrogenase CK-MB (CK-2) C-Reactive Protein NT-Pro-B Natriuret Pep Total Protein Albumin Urine WBC (Auto) 12/24/19 12/25/19 12/25/19 17:53 00:14 04:18 WBC 12.9 H RBC 3.30 L Hgb 9.1 L Hct 28.8 L MCHC RDW 16.4 H MCH Lymph % (Auto) [place] % (Auto) 7.8 H [place] # Eos # Lymph # (Auto) [place] # (Auto) 1.0 H Eos # (Auto) Seg Neutrophils % 75.5 H Seg Neuts % (Manual) Baso # (Auto) Lymphocytes % (Manual) Monocytes % (Manual) Eosinophils % (Manual) Basophils % (Manual) Seg Neutrophils # 9.7 H Seg Neutrophils # Man Lymphocytes # (Manual) Monocytes # (Manual) Eosinophils # (Manual) Nucleated RBC % Basophils # (Manual) APTT Heparin Anti-Xa Level ABG pH POC ABG pO2 ABG pO2 ABG HCO3 ABG O2 Saturation ABG Base Excess POC ABG pCO2 ABG Hemoglobin ABG Oxyhemoglobin Oxyhemoglobin Sodium Potassium Chloride Carbon Dioxide BUN Creatinine Glucose POC Glucose 164 H 148 H Lactic Acid Calcium Phosphorus Magnesium AST ALT Lactate Dehydrogenase CK-MB (CK-2) C-Reactive Protein NT-Pro-B Natriuret Pep Total Protein Albumin Urine WBC (Auto) 12/25/19 12/25/19 12/25/19 04:18 05:38 11:44 WBC RBC Hgb Hct MCHC RDW MCH Lymph % (Auto) [place] % (Auto) [place] # Eos # Lymph # (Auto) [place] # (Auto) Eos # (Auto) Seg Neutrophils % Seg Neuts % (Manual) Baso # (Auto) Lymphocytes % (Manual) Monocytes % (Manual) Eosinophils % (Manual) Basophils % (Manual) Seg Neutrophils # Seg Neutrophils # Man Lymphocytes # (Manual) Monocytes # (Manual) Eosinophils # (Manual) Nucleated RBC % Basophils # (Manual) APTT Heparin Anti-Xa Level ABG pH POC ABG pO2 ABG pO2 ABG HCO3 ABG O2 Saturation ABG Base Excess POC ABG pCO2 ABG Hemoglobin ABG Oxyhemoglobin Oxyhemoglobin Sodium Potassium Chloride Carbon Dioxide 33 H BUN 27 H Creatinine 0.6 L Glucose 132 H POC Glucose 152 H 166 H Lactic Acid Calcium Phosphorus Magnesium AST ALT Lactate Dehydrogenase CK-MB (CK-2) C-Reactive Protein NT-Pro-B Natriuret Pep Total Protein Albumin Urine WBC (Auto) 12/25/19 12/26/19 12/26/19 18:29 00:17 00:18 WBC RBC Hgb Hct MCHC RDW MCH Lymph % (Auto) [place] % (Auto) [place] # Eos # Lymph # (Auto) [place] # (Auto) Eos # (Auto) Seg Neutrophils % Seg Neuts % (Manual) Baso # (Auto) Lymphocytes % (Manual) Monocytes % (Manual) Eosinophils % (Manual) Basophils % (Manual) Seg Neutrophils # Seg Neutrophils # Man Lymphocytes # (Manual) Monocytes # (Manual) Eosinophils # (Manual) Nucleated RBC % Basophils # (Manual) APTT Heparin Anti-Xa Level ABG pH POC ABG pO2 ABG pO2 ABG HCO3 ABG O2 Saturation ABG Base Excess POC ABG pCO2 ABG Hemoglobin ABG Oxyhemoglobin Oxyhemoglobin Sodium Potassium Chloride 97.8 L Carbon Dioxide BUN 25 H Creatinine 0.6 L Glucose 140 H POC Glucose 194 H 151 H Lactic Acid Calcium Phosphorus Magnesium AST ALT Lactate Dehydrogenase CK-MB (CK-2) C-Reactive Protein NT-Pro-B Natriuret Pep Total Protein Albumin Urine WBC (Auto) 12/26/19 12/26/19 12/26/19 05:36 11:41 17:50 WBC RBC Hgb Hct MCHC RDW MCH Lymph % (Auto) [place] % (Auto) [place] # Eos # Lymph # (Auto) [place] # (Auto) Eos # (Auto) Seg Neutrophils % Seg Neuts % (Manual) Baso # (Auto) Lymphocytes % (Manual) Monocytes % (Manual) Eosinophils % (Manual) Basophils % (Manual) Seg Neutrophils # Seg Neutrophils # Man Lymphocytes # (Manual) Monocytes # (Manual) Eosinophils # (Manual) Nucleated RBC % Basophils # (Manual) APTT Heparin Anti-Xa Level ABG pH POC ABG pO2 ABG pO2 ABG HCO3 ABG O2 Saturation ABG Base Excess POC ABG pCO2 ABG Hemoglobin ABG Oxyhemoglobin Oxyhemoglobin Sodium Potassium Chloride Carbon Dioxide BUN Creatinine Glucose POC Glucose 156 H 148 H 139 H Lactic Acid Calcium Phosphorus Magnesium AST ALT Lactate Dehydrogenase CK-MB (CK-2) C-Reactive Protein NT-Pro-B Natriuret Pep Total Protein Albumin Urine WBC (Auto) 12/26/19 12/27/19 12/27/19 23:19 05:34 12:02 WBC RBC Hgb Hct MCHC RDW MCH Lymph % (Auto) [place] % (Auto) [place] # Eos # Lymph # (Auto) [place] # (Auto) Eos # (Auto) Seg Neutrophils % Seg Neuts % (Manual) Baso # (Auto) Lymphocytes % (Manual) Monocytes % (Manual) Eosinophils % (Manual) Basophils % (Manual) Seg Neutrophils # Seg Neutrophils # Man Lymphocytes # (Manual) Monocytes # (Manual) Eosinophils # (Manual) Nucleated RBC % Basophils # (Manual) APTT Heparin Anti-Xa Level ABG pH POC ABG pO2 ABG pO2 ABG HCO3 ABG O2 Saturation ABG Base Excess POC ABG pCO2 ABG Hemoglobin ABG Oxyhemoglobin Oxyhemoglobin Sodium Potassium Chloride Carbon Dioxide BUN Creatinine Glucose POC Glucose 161 H 145 H 157 H Lactic Acid Calcium Phosphorus Magnesium AST ALT Lactate Dehydrogenase CK-MB (CK-2) C-Reactive Protein NT-Pro-B Natriuret Pep Total Protein Albumin Urine WBC (Auto) 12/27/19 12/27/19 12/27/19 17:35 20:11 23:00 WBC RBC Hgb Hct MCHC RDW MCH Lymph % (Auto) [place] % (Auto) [place] # Eos # Lymph # (Auto) [place] # (Auto) Eos # (Auto) Seg Neutrophils % Seg Neuts % (Manual) Baso # (Auto) Lymphocytes % (Manual) Monocytes % (Manual) Eosinophils % (Manual) Basophils % (Manual) Seg Neutrophils # Seg Neutrophils # Man Lymphocytes # (Manual) Monocytes # (Manual) Eosinophils # (Manual) Nucleated RBC % Basophils # (Manual) APTT Heparin Anti-Xa Level 0.19 L ABG pH POC ABG pO2 ABG pO2 ABG HCO3 ABG O2 Saturation ABG Base Excess POC ABG pCO2 ABG Hemoglobin ABG Oxyhemoglobin Oxyhemoglobin Sodium Potassium Chloride Carbon Dioxide BUN Creatinine Glucose POC Glucose 158 H 155 H Lactic Acid Calcium Phosphorus Magnesium AST ALT Lactate Dehydrogenase CK-MB (CK-2) C-Reactive Protein NT-Pro-B Natriuret Pep Total Protein Albumin Urine WBC (Auto) 12/27/19 12/28/19 12/28/19 23:45 02:41 02:41 WBC 13.0 H RBC 3.48 L Hgb 9.5 L Hct 30.6 L MCHC 31 L RDW 16.6 H MCH 27 L Lymph % (Auto) 13.0 L [place] % (Auto) 8.0 H [place] # Eos # Lymph # (Auto) [place] # (Auto) 1.0 H Eos # (Auto) Seg Neutrophils % 76.3 H Seg Neuts % (Manual) Baso # (Auto) Lymphocytes % (Manual) Monocytes % (Manual) Eosinophils % (Manual) Basophils % (Manual) Seg Neutrophils # 9.9 H Seg Neutrophils # Man Lymphocytes # (Manual) Monocytes # (Manual) Eosinophils # (Manual) Nucleated RBC % Basophils # (Manual) APTT Heparin Anti-Xa Level ABG pH POC ABG pO2 ABG pO2 ABG HCO3 ABG O2 Saturation ABG Base Excess POC ABG pCO2 ABG Hemoglobin ABG Oxyhemoglobin Oxyhemoglobin Sodium Potassium Chloride Carbon Dioxide BUN 22 H Creatinine 0.6 L Glucose 101 H POC Glucose 130 H Lactic Acid Calcium Phosphorus Magnesium AST ALT Lactate Dehydrogenase CK-MB (CK-2) C-Reactive Protein NT-Pro-B Natriuret Pep Total Protein Albumin Urine WBC (Auto) 12/28/19 12/28/19 12/28/19 06:00 12:34 18:13 WBC RBC Hgb Hct MCHC RDW MCH Lymph % (Auto) [place] % (Auto) [place] # Eos # Lymph # (Auto) [place] # (Auto) Eos # (Auto) Seg Neutrophils % Seg Neuts % (Manual) Baso # (Auto) Lymphocytes % (Manual) Monocytes % (Manual) Eosinophils % (Manual) Basophils % (Manual) Seg Neutrophils # Seg Neutrophils # Man Lymphocytes # (Manual) Monocytes # (Manual) Eosinophils # (Manual) Nucleated RBC % Basophils # (Manual) APTT Heparin Anti-Xa Level ABG pH POC ABG pO2 ABG pO2 ABG HCO3 ABG O2 Saturation ABG Base Excess POC ABG pCO2 ABG Hemoglobin ABG Oxyhemoglobin Oxyhemoglobin Sodium Potassium Chloride Carbon Dioxide BUN Creatinine Glucose POC Glucose 150 H 161 H 128 H Lactic Acid Calcium Phosphorus Magnesium AST ALT Lactate Dehydrogenase CK-MB (CK-2) C-Reactive Protein NT-Pro-B Natriuret Pep Total Protein Albumin Urine WBC (Auto) 12/28/19 12/29/19 12/29/19 23:36 05:21 11:40 WBC RBC Hgb Hct MCHC RDW MCH Lymph % (Auto) [place] % (Auto) [place] # Eos # Lymph # (Auto) [place] # (Auto) Eos # (Auto) Seg Neutrophils % Seg Neuts % (Manual) Baso # (Auto) Lymphocytes % (Manual) Monocytes % (Manual) Eosinophils % (Manual) Basophils % (Manual) Seg Neutrophils # Seg Neutrophils # Man Lymphocytes # (Manual) Monocytes # (Manual) Eosinophils # (Manual) Nucleated RBC % Basophils # (Manual) APTT Heparin Anti-Xa Level ABG pH POC ABG pO2 ABG pO2 ABG HCO3 ABG O2 Saturation ABG Base Excess POC ABG pCO2 ABG Hemoglobin ABG Oxyhemoglobin Oxyhemoglobin Sodium Potassium Chloride Carbon Dioxide BUN Creatinine Glucose POC Glucose 137 H 136 H 166 H Lactic Acid Calcium Phosphorus Magnesium AST ALT Lactate Dehydrogenase CK-MB (CK-2) C-Reactive Protein NT-Pro-B Natriuret Pep Total Protein Albumin Urine WBC (Auto) 12/29/19 12/29/19 12/29/19 17:23 19:21 23:38 WBC RBC Hgb Hct MCHC RDW MCH Lymph % (Auto) [place] % (Auto) [place] # Eos # Lymph # (Auto) [place] # (Auto) Eos # (Auto) Seg Neutrophils % Seg Neuts % (Manual) Baso # (Auto) Lymphocytes % (Manual) Monocytes % (Manual) Eosinophils % (Manual) Basophils % (Manual) Seg Neutrophils # Seg Neutrophils # Man Lymphocytes # (Manual) Monocytes # (Manual) Eosinophils # (Manual) Nucleated RBC % Basophils # (Manual) APTT Heparin Anti-Xa Level 0.20 L ABG pH POC ABG pO2 ABG pO2 ABG HCO3 ABG O2 Saturation ABG Base Excess POC ABG pCO2 ABG Hemoglobin ABG Oxyhemoglobin Oxyhemoglobin Sodium Potassium Chloride Carbon Dioxide BUN Creatinine Glucose POC Glucose 144 H 141 H Lactic Acid Calcium Phosphorus Magnesium AST ALT Lactate Dehydrogenase CK-MB (CK-2) C-Reactive Protein NT-Pro-B Natriuret Pep Total Protein Albumin Urine WBC (Auto) 12/30/19 12/30/19 12/30/19 03:58 03:58 04:59 WBC RBC 3.54 L Hgb 9.8 L Hct 30.7 L MCHC RDW 16.8 H MCH Lymph % (Auto) [place] % (Auto) [place] # Eos # Lymph # (Auto) [place] # (Auto) Eos # (Auto) Seg Neutrophils % Seg Neuts % (Manual) Baso # (Auto) Lymphocytes % (Manual) Monocytes % (Manual) Eosinophils % (Manual) Basophils % (Manual) Seg Neutrophils # Seg Neutrophils # Man Lymphocytes # (Manual) Monocytes # (Manual) Eosinophils # (Manual) Nucleated RBC % Basophils # (Manual) APTT Heparin Anti-Xa Level ABG pH POC ABG pO2 ABG pO2 ABG HCO3 29.8 H ABG O2 Saturation ABG Base Excess 4.8 H POC ABG pCO2 ABG Hemoglobin 11.2 L ABG Oxyhemoglobin Oxyhemoglobin 93.8 L Sodium Potassium Chloride 97.8 L Carbon Dioxide BUN 26 H Creatinine Glucose 168 H POC Glucose Lactic Acid Calcium Phosphorus Magnesium AST ALT Lactate Dehydrogenase CK-MB (CK-2) C-Reactive Protein NT-Pro-B Natriuret Pep Total Protein Albumin Urine WBC (Auto) 12/30/19 12/30/19 12/30/19 05:45 11:34 17:28 WBC RBC Hgb Hct MCHC RDW MCH Lymph % (Auto) [place] % (Auto) [place] # Eos # Lymph # (Auto) [place] # (Auto) Eos # (Auto) Seg Neutrophils % Seg Neuts % (Manual) Baso # (Auto) Lymphocytes % (Manual) Monocytes % (Manual) Eosinophils % (Manual) Basophils % (Manual) Seg Neutrophils # Seg Neutrophils # Man Lymphocytes # (Manual) Monocytes # (Manual) Eosinophils # (Manual) Nucleated RBC % Basophils # (Manual) APTT Heparin Anti-Xa Level ABG pH POC ABG pO2 ABG pO2 ABG HCO3 ABG O2 Saturation ABG Base Excess POC ABG pCO2 ABG Hemoglobin ABG Oxyhemoglobin Oxyhemoglobin Sodium Potassium Chloride Carbon Dioxide BUN Creatinine Glucose POC Glucose 163 H 180 H 150 H Lactic Acid Calcium Phosphorus Magnesium AST ALT Lactate Dehydrogenase CK-MB (CK-2) C-Reactive Protein NT-Pro-B Natriuret Pep Total Protein Albumin Urine WBC (Auto) 12/30/19 12/31/19 12/31/19 23:43 04:55 05:07 WBC RBC Hgb Hct MCHC RDW MCH Lymph % (Auto) [place] % (Auto) [place] # Eos # Lymph # (Auto) [place] # (Auto) Eos # (Auto) Seg Neutrophils % Seg Neuts % (Manual) Baso # (Auto) Lymphocytes % (Manual) Monocytes % (Manual) Eosinophils % (Manual) Basophils % (Manual) Seg Neutrophils # Seg Neutrophils # Man Lymphocytes # (Manual) Monocytes # (Manual) Eosinophils # (Manual) Nucleated RBC % Basophils # (Manual) APTT Heparin Anti-Xa Level ABG pH POC ABG pO2 ABG pO2 ABG HCO3 ABG O2 Saturation ABG Base Excess POC ABG pCO2 ABG Hemoglobin ABG Oxyhemoglobin Oxyhemoglobin Sodium Potassium 5.6 H D Chloride Carbon Dioxide BUN 33 H Creatinine Glucose 131 H POC Glucose 142 H 134 H Lactic Acid Calcium Phosphorus Magnesium AST ALT Lactate Dehydrogenase CK-MB (CK-2) C-Reactive Protein NT-Pro-B Natriuret Pep Total Protein Albumin Urine WBC (Auto) 12/31/19 12/31/19 12/31/19 11:30 17:19 17:36 WBC RBC Hgb Hct MCHC RDW MCH Lymph % (Auto) [place] % (Auto) [place] # Eos # Lymph # (Auto) [place] # (Auto) Eos # (Auto) Seg Neutrophils % Seg Neuts % (Manual) Baso # (Auto) Lymphocytes % (Manual) Monocytes % (Manual) Eosinophils % (Manual) Basophils % (Manual) Seg Neutrophils # Seg Neutrophils # Man Lymphocytes # (Manual) Monocytes # (Manual) Eosinophils # (Manual) Nucleated RBC % Basophils # (Manual) APTT Heparin Anti-Xa Level ABG pH POC ABG pO2 ABG pO2 ABG HCO3 ABG O2 Saturation ABG Base Excess POC ABG pCO2 ABG Hemoglobin ABG Oxyhemoglobin Oxyhemoglobin Sodium Potassium Chloride Carbon Dioxide BUN 35 H Creatinine Glucose 156 H POC Glucose 158 H 181 H Lactic Acid Calcium Phosphorus Magnesium AST ALT Lactate Dehydrogenase CK-MB (CK-2) C-Reactive Protein NT-Pro-B Natriuret Pep Total Protein Albumin Urine WBC (Auto) 12/31/19 12/31/19 12/31/19 18:16 19:41 21:53 WBC RBC Hgb Hct MCHC RDW MCH Lymph % (Auto) [place] % (Auto) [place] # Eos # Lymph # (Auto) [place] # (Auto) Eos # (Auto) Seg Neutrophils % Seg Neuts % (Manual) Baso # (Auto) Lymphocytes % (Manual) Monocytes % (Manual) Eosinophils % (Manual) Basophils % (Manual) Seg Neutrophils # Seg Neutrophils # Man Lymphocytes # (Manual) Monocytes # (Manual) Eosinophils # (Manual) Nucleated RBC % Basophils # (Manual) APTT Heparin Anti-Xa Level 0.20 L ABG pH POC ABG pO2 ABG pO2 ABG HCO3 ABG O2 Saturation ABG Base Excess POC ABG pCO2 ABG Hemoglobin ABG Oxyhemoglobin Oxyhemoglobin Sodium Potassium Chloride Carbon Dioxide BUN 34 H Creatinine Glucose 169 H POC Glucose 141 H Lactic Acid Calcium Phosphorus Magnesium AST ALT Lactate Dehydrogenase CK-MB (CK-2) C-Reactive Protein NT-Pro-B Natriuret Pep Total Protein Albumin Urine WBC (Auto) 12/31/19 01/01/20 01/01/20 23:51 05:17 10:40 WBC RBC Hgb Hct MCHC RDW MCH Lymph % (Auto) [place] % (Auto) [place] # Eos # Lymph # (Auto) [place] # (Auto) Eos # (Auto) Seg Neutrophils % Seg Neuts % (Manual) Baso # (Auto) Lymphocytes % (Manual) Monocytes % (Manual) Eosinophils % (Manual) Basophils % (Manual) Seg Neutrophils # Seg Neutrophils # Man Lymphocytes # (Manual) Monocytes # (Manual) Eosinophils # (Manual) Nucleated RBC % Basophils # (Manual) APTT Heparin Anti-Xa Level ABG pH POC ABG pO2 ABG pO2 ABG HCO3 ABG O2 Saturation ABG Base Excess POC ABG pCO2 ABG Hemoglobin ABG Oxyhemoglobin Oxyhemoglobin Sodium Potassium Chloride Carbon Dioxide BUN 31 H Creatinine 0.7 L Glucose 137 H POC Glucose 131 H 155 H Lactic Acid Calcium Phosphorus Magnesium AST 73 H ALT 97 H Lactate Dehydrogenase CK-MB (CK-2) C-Reactive Protein NT-Pro-B Natriuret Pep 3866 H Total Protein Albumin 2.8 L Urine WBC (Auto) 01/01/20 01/01/20 01/01/20 12:26 15:33 17:53 WBC 14.3 H RBC 3.35 L Hgb 9.1 L Hct 28.8 L MCHC RDW 17.0 H MCH 27 L Lymph % (Auto) 7.0 L [place] % (Auto) 7.6 H [place] # Eos # Lymph # (Auto) 1.0 L [place] # (Auto) 1.1 H Eos # (Auto) Seg Neutrophils % 83.3 H Seg Neuts % (Manual) Baso # (Auto) Lymphocytes % (Manual) Monocytes % (Manual) Eosinophils % (Manual) Basophils % (Manual) Seg Neutrophils # 12.0 H Seg Neutrophils # Man Lymphocytes # (Manual) Monocytes # (Manual) Eosinophils # (Manual) Nucleated RBC % Basophils # (Manual) APTT Heparin Anti-Xa Level ABG pH POC ABG pO2 ABG pO2 ABG HCO3 ABG O2 Saturation ABG Base Excess POC ABG pCO2 ABG Hemoglobin ABG Oxyhemoglobin Oxyhemoglobin Sodium Potassium Chloride Carbon Dioxide BUN Creatinine Glucose POC Glucose 128 H 128 H Lactic Acid Calcium Phosphorus Magnesium AST ALT Lactate Dehydrogenase CK-MB (CK-2) C-Reactive Protein NT-Pro-B Natriuret Pep Total Protein Albumin Urine WBC (Auto) 01/01/20 01/02/20 01/02/20 23:04 05:39 07:00 WBC RBC Hgb Hct MCHC RDW MCH Lymph % (Auto) [place] % (Auto) [place] # Eos # Lymph # (Auto) [place] # (Auto) Eos # (Auto) Seg Neutrophils % Seg Neuts % (Manual) Baso # (Auto) Lymphocytes % (Manual) Monocytes % (Manual) Eosinophils % (Manual) Basophils % (Manual) Seg Neutrophils # Seg Neutrophils # Man Lymphocytes # (Manual) Monocytes # (Manual) Eosinophils # (Manual) Nucleated RBC % Basophils # (Manual) APTT Heparin Anti-Xa Level 0.13 L ABG pH POC ABG pO2 ABG pO2 ABG HCO3 ABG O2 Saturation ABG Base Excess POC ABG pCO2 ABG Hemoglobin ABG Oxyhemoglobin Oxyhemoglobin Sodium Potassium Chloride Carbon Dioxide BUN Creatinine Glucose POC Glucose 120 H 169 H Lactic Acid Calcium Phosphorus Magnesium AST ALT Lactate Dehydrogenase CK-MB (CK-2) C-Reactive Protein NT-Pro-B Natriuret Pep Total Protein Albumin Urine WBC (Auto) 01/02/20 01/02/20 01/02/20 12:15 14:06 17:58 WBC RBC Hgb Hct MCHC RDW MCH Lymph % (Auto) [place] % (Auto) [place] # Eos # Lymph # (Auto) [place] # (Auto) Eos # (Auto) Seg Neutrophils % Seg Neuts % (Manual) Baso # (Auto) Lymphocytes % (Manual) Monocytes % (Manual) Eosinophils % (Manual) Basophils % (Manual) Seg Neutrophils # Seg Neutrophils # Man Lymphocytes # (Manual) Monocytes # (Manual) Eosinophils # (Manual) Nucleated RBC % Basophils # (Manual) APTT Heparin Anti-Xa Level < 0.10 L ABG pH POC ABG pO2 ABG pO2 ABG HCO3 ABG O2 Saturation ABG Base Excess POC ABG pCO2 ABG Hemoglobin ABG Oxyhemoglobin Oxyhemoglobin Sodium Potassium Chloride Carbon Dioxide BUN Creatinine Glucose POC Glucose 190 H 198 H Lactic Acid Calcium Phosphorus Magnesium AST ALT Lactate Dehydrogenase CK-MB (CK-2) C-Reactive Protein NT-Pro-B Natriuret Pep Total Protein Albumin Urine WBC (Auto) 01/02/20 01/02/20 01/03/20 21:43 23:33 05:42 WBC RBC Hgb Hct MCHC RDW MCH Lymph % (Auto) [place] % (Auto) [place] # Eos # Lymph # (Auto) [place] # (Auto) Eos # (Auto) Seg Neutrophils % Seg Neuts % (Manual) Baso # (Auto) Lymphocytes % (Manual) Monocytes % (Manual) Eosinophils % (Manual) Basophils % (Manual) Seg Neutrophils # Seg Neutrophils # Man Lymphocytes # (Manual) Monocytes # (Manual) Eosinophils # (Manual) Nucleated RBC % Basophils # (Manual) APTT Heparin Anti-Xa Level 0.10 L ABG pH POC ABG pO2 ABG pO2 ABG HCO3 ABG O2 Saturation ABG Base Excess POC ABG pCO2 ABG Hemoglobin ABG Oxyhemoglobin Oxyhemoglobin Sodium Potassium Chloride Carbon Dioxide BUN Creatinine Glucose POC Glucose 180 H 163 H Lactic Acid Calcium Phosphorus Magnesium AST ALT Lactate Dehydrogenase CK-MB (CK-2) C-Reactive Protein NT-Pro-B Natriuret Pep Total Protein Albumin Urine WBC (Auto) 01/03/20 01/03/20 01/03/20 06:50 07:25 07:45 WBC 12.1 H RBC 3.35 L Hgb 9.0 L Hct 28.9 L MCHC 31 L RDW 16.6 H MCH 27 L Lymph % (Auto) 13.0 L [place] % (Auto) 8.6 H [place] # Eos # Lymph # (Auto) [place] # (Auto) 1.0 H Eos # (Auto) Seg Neutrophils % 75.9 H Seg Neuts % (Manual) Baso # (Auto) Lymphocytes % (Manual) Monocytes % (Manual) Eosinophils % (Manual) Basophils % (Manual) Seg Neutrophils # 9.2 H Seg Neutrophils # Man Lymphocytes # (Manual) Monocytes # (Manual) Eosinophils # (Manual) Nucleated RBC % Basophils # (Manual) APTT Heparin Anti-Xa Level 0.29 L ABG pH POC ABG pO2 ABG pO2 ABG HCO3 ABG O2 Saturation ABG Base Excess POC ABG pCO2 ABG Hemoglobin ABG Oxyhemoglobin Oxyhemoglobin Sodium Potassium 3.3 L D Chloride Carbon Dioxide 35 H D BUN 23 H Creatinine 0.6 L Glucose 149 H POC Glucose Lactic Acid Calcium Phosphorus Magnesium AST ALT 88 H Lactate Dehydrogenase CK-MB (CK-2) C-Reactive Protein NT-Pro-B Natriuret Pep Total Protein 6.2 L Albumin 2.9 L Urine WBC (Auto) 01/03/20 01/03/20 01/03/20 12:05 17:42 18:30 WBC RBC Hgb Hct MCHC RDW MCH Lymph % (Auto) [place] % (Auto) [place] # Eos # Lymph # (Auto) [place] # (Auto) Eos # (Auto) Seg Neutrophils % Seg Neuts % (Manual) Baso # (Auto) Lymphocytes % (Manual) Monocytes % (Manual) Eosinophils % (Manual) Basophils % (Manual) Seg Neutrophils # Seg Neutrophils # Man Lymphocytes # (Manual) Monocytes # (Manual) Eosinophils # (Manual) Nucleated RBC % Basophils # (Manual) APTT Heparin Anti-Xa Level ABG pH POC ABG pO2 ABG pO2 70.7 L ABG HCO3 36.1 H ABG O2 Saturation 94.4 L ABG Base Excess 10.0 H POC ABG pCO2 ABG Hemoglobin 9.7 L ABG Oxyhemoglobin Oxyhemoglobin 91.8 L Sodium Potassium Chloride Carbon Dioxide BUN Creatinine Glucose POC Glucose 128 H 132 H Lactic Acid Calcium Phosphorus Magnesium AST ALT Lactate Dehydrogenase CK-MB (CK-2) C-Reactive Protein NT-Pro-B Natriuret Pep Total Protein Albumin Urine WBC (Auto) 01/04/20 01/04/20 01/04/20 00:10 04:26 05:23 WBC RBC Hgb Hct MCHC RDW MCH Lymph % (Auto) [place] % (Auto) [place] # Eos # Lymph # (Auto) [place] # (Auto) Eos # (Auto) Seg Neutrophils % Seg Neuts % (Manual) Baso # (Auto) Lymphocytes % (Manual) Monocytes % (Manual) Eosinophils % (Manual) Basophils % (Manual) Seg Neutrophils # Seg Neutrophils # Man Lymphocytes # (Manual) Monocytes # (Manual) Eosinophils # (Manual) Nucleated RBC % Basophils # (Manual) APTT Heparin Anti-Xa Level 0.16 L ABG pH POC ABG pO2 ABG pO2 ABG HCO3 ABG O2 Saturation ABG Base Excess POC ABG pCO2 ABG Hemoglobin ABG Oxyhemoglobin Oxyhemoglobin Sodium Potassium Chloride Carbon Dioxide BUN Creatinine Glucose POC Glucose 121 H 119 H Lactic Acid Calcium Phosphorus Magnesium AST ALT Lactate Dehydrogenase CK-MB (CK-2) C-Reactive Protein NT-Pro-B Natriuret Pep Total Protein Albumin Urine WBC (Auto) 01/04/20 01/04/20 01/04/20 09:50 09:50 12:18 WBC 15.4 H RBC 3.30 L Hgb 8.7 L Hct 28.2 L MCHC 31 L RDW 17.0 H MCH 26 L Lymph % (Auto) [place] % (Auto) 7.6 H [place] # Eos # Lymph # (Auto) [place] # (Auto) 1.2 H Eos # (Auto) Seg Neutrophils % 75.4 H Seg Neuts % (Manual) Baso # (Auto) Lymphocytes % (Manual) Monocytes % (Manual) Eosinophils % (Manual) Basophils % (Manual) Seg Neutrophils # 11.6 H Seg Neutrophils # Man Lymphocytes # (Manual) Monocytes # (Manual) Eosinophils # (Manual) Nucleated RBC % Basophils # (Manual) APTT Heparin Anti-Xa Level ABG pH POC ABG pO2 ABG pO2 ABG HCO3 ABG O2 Saturation ABG Base Excess POC ABG pCO2 ABG Hemoglobin ABG Oxyhemoglobin Oxyhemoglobin Sodium 148 H Potassium 3.5 L Chloride Carbon Dioxide 32 H BUN Creatinine 0.6 L Glucose 114 H POC Glucose 111 H Lactic Acid Calcium Phosphorus Magnesium AST ALT 59 H Lactate Dehydrogenase CK-MB (CK-2) C-Reactive Protein NT-Pro-B Natriuret Pep Total Protein Albumin 2.6 L Urine WBC (Auto) 01/05/20 01/05/20 01/05/20 04:05 04:05 05:19 WBC 11.7 H RBC 3.50 L Hgb 9.3 L Hct 29.9 L MCHC 31 L RDW 16.6 H MCH 27 L Lymph % (Auto) 13.1 L [place] % (Auto) 9.7 H [place] # Eos # Lymph # (Auto) [place] # (Auto) 1.1 H Eos # (Auto) Seg Neutrophils % 74.0 H Seg Neuts % (Manual) Baso # (Auto) Lymphocytes % (Manual) Monocytes % (Manual) Eosinophils % (Manual) Basophils % (Manual) Seg Neutrophils # 8.6 H Seg Neutrophils # Man Lymphocytes # (Manual) Monocytes # (Manual) Eosinophils # (Manual) Nucleated RBC % Basophils # (Manual) APTT Heparin Anti-Xa Level ABG pH POC ABG pO2 ABG pO2 ABG HCO3 ABG O2 Saturation ABG Base Excess POC ABG pCO2 ABG Hemoglobin ABG Oxyhemoglobin Oxyhemoglobin Sodium 151 H Potassium Chloride Carbon Dioxide 34 H BUN Creatinine 0.7 L Glucose POC Glucose 112 H Lactic Acid Calcium Phosphorus Magnesium AST ALT 59 H Lactate Dehydrogenase CK-MB (CK-2) C-Reactive Protein NT-Pro-B Natriuret Pep Total Protein 5.8 L Albumin 2.6 L Urine WBC (Auto) 01/05/20 01/06/20 01/06/20 16:04 00:23 04:44 WBC RBC 3.36 L Hgb 8.9 L Hct 28.7 L MCHC 31 L RDW 16.9 H MCH 26 L Lymph % (Auto) [place] % (Auto) 9.4 H [place] # Eos # Lymph # (Auto) [place] # (Auto) Eos # (Auto) Seg Neutrophils % Seg Neuts % (Manual) Baso # (Auto) Lymphocytes % (Manual) Monocytes % (Manual) Eosinophils % (Manual) Basophils % (Manual) Seg Neutrophils # Seg Neutrophils # Man Lymphocytes # (Manual) Monocytes # (Manual) Eosinophils # (Manual) Nucleated RBC % Basophils # (Manual) APTT Heparin Anti-Xa Level ABG pH POC ABG pO2 ABG pO2 ABG HCO3 ABG O2 Saturation ABG Base Excess POC ABG pCO2 ABG Hemoglobin ABG Oxyhemoglobin Oxyhemoglobin Sodium 151 H Potassium 3.2 L Chloride Carbon Dioxide 34 H BUN Creatinine 0.6 L Glucose POC Glucose 107 H Lactic Acid Calcium Phosphorus Magnesium AST ALT Lactate Dehydrogenase CK-MB (CK-2) C-Reactive Protein NT-Pro-B Natriuret Pep Total Protein Albumin Urine WBC (Auto) 01/06/20 01/06/20 01/06/20 04:44 05:33 12:04 WBC RBC Hgb Hct MCHC RDW MCH Lymph % (Auto) [place] % (Auto) [place] # Eos # Lymph # (Auto) [place] # (Auto) Eos # (Auto) Seg Neutrophils % Seg Neuts % (Manual) Baso # (Auto) Lymphocytes % (Manual) Monocytes % (Manual) Eosinophils % (Manual) Basophils % (Manual) Seg Neutrophils # Seg Neutrophils # Man Lymphocytes # (Manual) Monocytes # (Manual) Eosinophils # (Manual) Nucleated RBC % Basophils # (Manual) APTT Heparin Anti-Xa Level ABG pH POC ABG pO2 ABG pO2 ABG HCO3 ABG O2 Saturation ABG Base Excess POC ABG pCO2 ABG Hemoglobin ABG Oxyhemoglobin Oxyhemoglobin Sodium 151 H Potassium 3.4 L Chloride Carbon Dioxide 33 H BUN Creatinine 0.6 L Glucose 118 H POC Glucose 118 H 123 H Lactic Acid Calcium Phosphorus Magnesium AST ALT Lactate Dehydrogenase CK-MB (CK-2) C-Reactive Protein NT-Pro-B Natriuret Pep Total Protein 6.2 L Albumin 2.6 L Urine WBC (Auto) 01/06/20 01/07/20 01/07/20 17:54 00:06 04:10 WBC RBC 3.42 L Hgb 8.9 L Hct 29.0 L MCHC 31 L RDW 17.1 H MCH 26 L Lymph % (Auto) [place] % (Auto) 8.4 H [place] # Eos # Lymph # (Auto) [place] # (Auto) Eos # (Auto) Seg Neutrophils % Seg Neuts % (Manual) Baso # (Auto) Lymphocytes % (Manual) Monocytes % (Manual) Eosinophils % (Manual) Basophils % (Manual) Seg Neutrophils # Seg Neutrophils # Man Lymphocytes # (Manual) Monocytes # (Manual) Eosinophils # (Manual) Nucleated RBC % Basophils # (Manual) APTT Heparin Anti-Xa Level ABG pH POC ABG pO2 ABG pO2 ABG HCO3 ABG O2 Saturation ABG Base Excess POC ABG pCO2 ABG Hemoglobin ABG Oxyhemoglobin Oxyhemoglobin Sodium Potassium Chloride Carbon Dioxide BUN Creatinine Glucose POC Glucose 112 H 126 H Lactic Acid Calcium Phosphorus Magnesium AST ALT Lactate Dehydrogenase CK-MB (CK-2) C-Reactive Protein NT-Pro-B Natriuret Pep Total Protein Albumin Urine WBC (Auto) 01/07/20 01/07/20 01/07/20 04:10 05:59 12:27 WBC RBC Hgb Hct MCHC RDW MCH Lymph % (Auto) [place] % (Auto) [place] # Eos # Lymph # (Auto) [place] # (Auto) Eos # (Auto) Seg Neutrophils % Seg Neuts % (Manual) Baso # (Auto) Lymphocytes % (Manual) Monocytes % (Manual) Eosinophils % (Manual) Basophils % (Manual) Seg Neutrophils # Seg Neutrophils # Man Lymphocytes # (Manual) Monocytes # (Manual) Eosinophils # (Manual) Nucleated RBC % Basophils # (Manual) APTT Heparin Anti-Xa Level ABG pH POC ABG pO2 ABG pO2 ABG HCO3 ABG O2 Saturation ABG Base Excess POC ABG pCO2 ABG Hemoglobin ABG Oxyhemoglobin Oxyhemoglobin Sodium 153 H Potassium 3.5 L Chloride Carbon Dioxide 34 H BUN Creatinine 0.6 L Glucose 121 H POC Glucose 121 H 126 H Lactic Acid Calcium Phosphorus Magnesium AST ALT Lactate Dehydrogenase CK-MB (CK-2) C-Reactive Protein NT-Pro-B Natriuret Pep Total Protein 5.9 L Albumin 2.4 L Urine WBC (Auto) 01/07/20 01/08/20 01/08/20 18:12 00:03 05:41 WBC RBC Hgb Hct MCHC RDW MCH Lymph % (Auto) [place] % (Auto) [place] # Eos # Lymph # (Auto) [place] # (Auto) Eos # (Auto) Seg Neutrophils % Seg Neuts % (Manual) Baso # (Auto) Lymphocytes % (Manual) Monocytes % (Manual) Eosinophils % (Manual) Basophils % (Manual) Seg Neutrophils # Seg Neutrophils # Man Lymphocytes # (Manual) Monocytes # (Manual) Eosinophils # (Manual) Nucleated RBC % Basophils # (Manual) APTT Heparin Anti-Xa Level ABG pH POC ABG pO2 ABG pO2 ABG HCO3 ABG O2 Saturation ABG Base Excess POC ABG pCO2 ABG Hemoglobin ABG Oxyhemoglobin Oxyhemoglobin Sodium Potassium Chloride Carbon Dioxide BUN Creatinine Glucose POC Glucose 124 H 130 H 138 H Lactic Acid Calcium Phosphorus Magnesium AST ALT Lactate Dehydrogenase CK-MB (CK-2) C-Reactive Protein NT-Pro-B Natriuret Pep Total Protein Albumin Urine WBC (Auto) 01/08/20 09:28 WBC RBC Hgb Hct MCHC RDW MCH Lymph % (Auto) [place] % (Auto) [place] # Eos # Lymph # (Auto) [place] # (Auto) Eos # (Auto) Seg Neutrophils % Seg Neuts % (Manual) Baso # (Auto) Lymphocytes % (Manual) Monocytes % (Manual) Eosinophils % (Manual) Basophils % (Manual) Seg Neutrophils # Seg Neutrophils # Man Lymphocytes # (Manual) Monocytes # (Manual) Eosinophils # (Manual) Nucleated RBC % Basophils # (Manual) APTT Heparin Anti-Xa Level ABG pH POC ABG pO2 ABG pO2 ABG HCO3 ABG O2 Saturation ABG Base Excess POC ABG pCO2 ABG Hemoglobin ABG Oxyhemoglobin Oxyhemoglobin Sodium Potassium Chloride Carbon Dioxide BUN Creatinine Glucose POC Glucose 181 H Lactic Acid Calcium Phosphorus Magnesium AST ALT Lactate Dehydrogenase CK-MB (CK-2) C-Reactive Protein NT-Pro-B Natriuret Pep Total Protein Albumin Urine WBC (Auto) Allied health notes reviewed: RT
[2020-01-08] MEDS: DOCUSATE SODIUM 100 MG/10 ML ORAL LIQD FEEDTUBE SCH ×2 (12:38→22:21)
[2020-01-08] MEDS: DEXTROSE 5% IN WATER 1,000 ML IV SCH (12:38)
[2020-01-08] MEDS: QUEtiapine 200 MG TAB PO SCH ×2 (12:39→22:22)
[2020-01-08] MEDS: AMIODARONE 200 MG TAB PO SCH ×2 (12:39→23:22)
[2020-01-08] MEDS: ENOXAPARIN 120 MG/0.8 ML INJ SUB-Q SCH ×2 (12:44→22:13)
[2020-01-08] MEDS: FAMOTIDINE 20 MG/2 ML INJ IV SCH ×2 (12:44→22:13)
--- NOTE | 2020-01-08 14:31 | Progress Note ---
Assessment and Plan 64 yo M with pSBO vs ileus Pt stable. +BMs and NGT/PEG output appears more gastric today. Plan: 1. clamp NGT 2. continue PEG to gravity 3. suppository daily 4. hold TF, gentle IVF 5. monitor lytes and replace as needed 6. will consider starting TTF tomorrow if continues to clinically improve Thank you. Please call with questions. Subjective Date of service: 01/08/20 Narrative: Pt seen and examined. Resting in bed, sleeping. No f/c, cp, sob. No n/v. 2BMs documented. Pt back on vent. Objective Vital Signs - 12hr 01/08/20 01/08/20 01/08/20 03:00 03:22 03:30 Temperature 98.8 F Pulse Rate 88 83 Pulse Rate [ From Monitor] Respiratory 23 19 Rate Blood Pressure 127/85 123/83 O2 Sat by Pulse 94 96 Oximetry 01/08/20 01/08/20 01/08/20 04:00 04:05 04:30 Temperature Pulse Rate 74 78 79 Pulse Rate [ From Monitor] Respiratory 21 17 Rate Blood Pressure 108/71 108/71 115/74 O2 Sat by Pulse 100 99 97 Oximetry 01/08/20 01/08/20 01/08/20 05:00 05:30 06:00 Temperature Pulse Rate 84 86 91 H Pulse Rate [ From Monitor] Respiratory 23 22 21 Rate Blood Pressure 123/85 124/89 138/94 O2 Sat by Pulse 98 98 100 Oximetry 01/08/20 01/08/20 01/08/20 06:30 07:00 07:31 Temperature Pulse Rate 99 H 101 H 152 H Pulse Rate [ From Monitor] Respiratory 27 H 26 H 27 H Rate Blood Pressure 147/103 148/98 148/98 O2 Sat by Pulse 98 93 80 L Oximetry 01/08/20 01/08/20 01/08/20 08:00 08:01 08:07 Temperature 98.8 F Pulse Rate 150 H 148 H 151 H Pulse Rate [ 150 H From Monitor] Respiratory 30 H 28 H Rate Blood Pressure 148/98 186/120 O2 Sat by Pulse 83 L 100 100 Oximetry 01/08/20 01/08/20 01/08/20 08:30 08:57 09:00 Temperature Pulse Rate 139 H 142 H 142 H Pulse Rate [ From Monitor] Respiratory 32 H 32 H Rate Blood Pressure 189/120 189/120 172/126 O2 Sat by Pulse 88 99 Oximetry 01/08/20 01/08/20 01/08/20 09:30 10:01 10:30 Temperature Pulse Rate 98 H 85 81 Pulse Rate [ From Monitor] Respiratory 41 H 22 40 H Rate Blood Pressure 132/85 115/80 111/72 O2 Sat by Pulse 100 100 100 Oximetry 01/08/20 01/08/20 01/08/20 11:00 11:30 11:56 Temperature Pulse Rate 84 82 69 Pulse Rate [ From Monitor] Respiratory 26 H 27 H Rate Blood Pressure 114/78 107/76 107/76 O2 Sat by Pulse 97 98 Oximetry 01/08/20 01/08/20 01/08/20 12:00 12:30 13:00 Temperature 98.6 F Pulse Rate 74 74 76 Pulse Rate [ 74 From Monitor] Respiratory 17 20 25 H Rate Blood Pressure 100/67 102/70 103/73 O2 Sat by Pulse 98 98 99 Oximetry 01/08/20 13:44 Temperature Pulse Rate 77 Pulse Rate [ From Monitor] Respiratory Rate Blood Pressure 101/72 O2 Sat by Pulse Oximetry - General physical appearance Narrative Exam: Gen: Resting comfortably. NAD ENT: trach in place. site c/d/i. NGT in place with output appearing less bilious and more gastric CV: S1, S2+ Resp: on vent Abd: soft, ND, NT. hypoactive bowel sounds. PEG site c/d/i with bumper at 4cm. G tube output appears more gastric Ext: edema : sánchez with yellow urine - Labs 01/07/20 04:10 01/07/20 04:10
--- NOTE | 2020-01-08 18:59 | Progress Note ---
Assessment and Plan -Partial SBO -Acute LLL PE -Acute RLE DVT -Persistent fevers; secondary to sepsis and acute PE/DVT -Severe sepsis; secondary to bilateral pneumonia, persistent fevers -Acute hypoxemic respiratory failure, on vent unable to wean -Bilateral pneumonia, community acquired, -Aspiration Pneumonia -Sustained SVT, on amiodarone -Acute on chronic systolic congestive heart failure -History of cerebrovascular accident. -Tobacco use disorder -Alcohol abuse with DT -Acute chronic obstructive pulmonary disease exacerbation. -Hypertension and hypertensive urgency at presentation. -History of arthritis. -Paroxysmal atrial fibrillation -Leukocytosis with possible sepsis. -Lactic acidosis. -Bleeding from ET tube -Oropharyngeal dysphagia -S/P Knee surgery -History of peptic Ulcer Surgery -DVT prophylaxis COVID-19 test; 11/24/2019; negative 11/26/2019; negative Plan Continue ventilatory support - Now s/p trach and PEG Aspiration precautions Continue to adjust amiodarone and metoprolol for suppression of paroxysmal atri al fibrillation. Continue anticoagulation Started back on vancomycin and zosyn BC 03/28 - coag negative staph ?contaminant. Sputum cultures pending. Low-dose Lasix as needed DVT/GI prophy Heparin/Protonix Plan of care reviewed with the patient's nurse BS consulted for partial SBO Closely monitor the patient and adjust management as needed The high probability of a clinically significant, sudden or life threatening deterioration of the [Respiratory, cardiovascular & neurological] system(s) required my full and direct attention, intervention and personal management. The aggregate critical care time was [33] minutes without overlap. Time includes spent on [x] Data Review and interpretation [x] Patient assessment and monitoring of vital signs [x] Documentation [x] Medication orders and management Brief History Patient is a 64-year-old male with known history of hypertension, COPD, history of coronary artery disease, CHF with ejection fraction of 20 to 25% in August 2018 presenting to the emergency room via EMS complaining of shortness of breath. Patient was found to be hypoxic and in respiratory distress. Patient was placed on CPAP in route to the hospital. Oxygen saturation was said to be 88%. Started on Solu-Medrol, Lasix and magnesium in ED, patient was also found to be lethargic with an oxygen saturation of about 91% on CPAP. He was subsequently intubated. Work-up in the emergency room including chest x-ray reveals bilateral pneumonia. He had an elevated white count of 14 and also had an elevated BNP. Patient admitted to the ICU and placed on empiric IV antibiotics for pneumonia. He tested negative for COVID-19 and placed on isolation precautions. Remains intubated on ventilatory support, sputum cultures positive for Pseudomonas, ID treated with cefepime and Vanco. His hospital course became complicated with acute PE, DVT, paroxysmal atrial fib - placed on chronic anticoagulation. Patient was difficult to wean off, status post trach and PEG, remains on mechanical ventilation with trach tube. He now developed partial small bowel obstruction and not tolerating tube feeding. Placed on NG suction, general surgery following. 11/25: Leukocytosis improving. Continue current management anticipate extubation possible today. 11/26. Still intubated. Failed SBT yesterday. Repeat COVID-19 test is negative. 11/27. CT head ordered for possible neuro status change is negative. More responsive as the day progressed as per RN. Chest xray today shows interval improvement. He is still on antibiotics - will complete regimen today. 11/28: Considering difficult extubation and severe cardiomyopathy, will obtain cardiology consult. Aspiration precautions, tube feeds held, continue antibiotics. 11/29: Still with intermittent fever but improving imaging, continue diuresis. 11/30; Extremely agitated when placed on PSV- SVT, hypertension. Patiet acknowledged that he drinks. IV Ativan given, CIWA protocol initiated. 12 lead ordered showed SVT, one dose of amiodarone ordered. continue to follow up cardiology recommendation 12/01: Patient remains on mechanical ventilation, getting SBT trial. Remains in SVT, started on amiodarone drip by cardiology. 12/02; patient is on mechanical ventilation and on spontaneous breathing trial. Cardiology started the patient on PO amiodarone. Patient is on cefepime. 12/03: patient is on mechanical ventilation. Cardiology started the patient on PO amiodarone for SVT. Patient is on cefepime, no fever overnight. 12/04: Patient is sedated and on mechanical ventilation. Patient had fever yesterday afternoon 102.3, ID changed his cefepime to meropenem. Heart rate is controlled, cardiology is following. Patient has paroxysmal atrial fibrillation and on amiodarone and metoprolol, subcu heparin for anticoagulation and will need oral anticoagulation once stable. 12/05: Sputum cultures positive for Pseudomonas, ID following 12/06; patient is febrile T-max 24 hours 102 F ,ID change antibiotics to cefepime and Vancomycin 12/07: resumed care. Na 149 today, start on 1/2 NS. cont current care 12/08: remains in a stable sinus rhythm and stable blood pressure, continue supportive care. wean off vent as tolerated. persistent fever - ordered CTA chest 12/09: noted bloody discharges from ET tube last night. CTA and LE venous doppler positive for acute PE and DVT. resume heparin drip, consult vascular for possible EKOS/ IVC filter. monitor h/h. cont SBT trial, wean off vent as tolerated. called but no answer 12/10: cont heparin drip for acute PE and DVT, follow vascular recommendation. monitor h/h, wean off vent as tolerated 12/11: o/n had bleeding from ET tube, cont to monitor h/h. vascular recommending medical Mx. called ; Nicolle Araiza [phone]. 12/12: H&H remained stable, patient on heparin drip. Discussed with yesterday. Discussed with critical care attending. Patient not tolerating SBT trial. Continue to wean off from vent as tolerated, follow clinically. Tolerating tube feeding 12/13: Continue heparin drip, wean off from vent as tolerated. Discussed with pulmonary attending if no improvement by the end of 3 weeks of intubation patient may need trach and PEG. Continue to provide supportive care, follow CBC and BMP. 12/14: Stop cefepime today, wean off from vent as tolerated. cont Heparin infusion, while monitoring for bleeding 12/15: Patient is not tolerating SBT trial, becoming apnic on CPAP. May need to place on trach and PEG. Continue heparin drip, monitor off antibiotics 12/16. Still maintained on vent. May need PEG and trach as her has been failed SBTs 12/17. Had low UO overnight. Started on tamsulosin. May need PEG and trach - defer to pulm. . Plan for US thoracentesis to help with weaning. Remains on heparin drip for VTE. 12/20. Discussed with spouse today. He will get thoracentesis today. INR/PTT ordered. Heparin drip held. 12/21: planned for trach and PEG, cont supportive care, thoracentesis cancelled 12/22: cont supportive care, wean off from vent, daily SBT 12/23: tolerating SBT, possible extubation soon. cont supportive care 12/24: wean off vent as tolerated, daily SBT, follow clinically 12/25; cont to monitor, wean off vent as tolerated 12/26: Continue to monitor wean off vent as tolerated patient is tolerating SBT trial but not ready to wean off. 12/27: need trach and PEG, will f/u with GS, cont supportive care 12/28: pending trach/PEG 12/29: plan for trach and PEG on Saturday 12/30: Plan for trach and PEG. Temp 101F. Blood cultures, urinalysis and chest xray ordered. 12/31. Had afib with RVR overnight. Metoprolol dose has been increased. He is still on amiodarone. Plan for PEG tube placement today. Repeat chest x-ray shows worsening infiltrates. Started on the Lasix. Monitor fever now. Blood cultures negative so far. Urinalysis pending 01/01. Started on antibiotics as he had another fever. On vancomycin and zosyn. ID consulted. HR still in the 100s. Had trach and PEG placement on 12/31 with no complications. BC 03/28 - Coag negative staph? contaminant. 01/02. On antibiotics. ID consulted. HR still high. Cardiology adjusting HR control medications. 01/03. HR better. Heparin switched to DOAC. HR better. Started on bumex 01/04: c/o abdominal pain, not tolerating TF, had projectile vomiting few times. Abd xry/CT abd suggestive of partial SBO, reconsult surgery, place NG with suction, start iv fluid. 01/05; Pt stable. NGT output 650cc over 24 hours, bilious. No f/c, WBC within normal limits. cont NG suction and cont to hold TF 01/06: Abs series - mild improvement in small bowel distension in mid abdomen, normal gas/stool pattern in colon. NGT in duodenum. Continue to hold tube feeding, maintain NG tube with low intermittent suction. Patient's was updated by phone. Continue to provide supportive care and monitor clinically. 01/07: +BMs today and NGT/PEG output appears more gastric today. Plan to clamp NGT, if tolerates start TF from tomorrow. cont supportive care. Subjective Date of service: 01/08/20 Principal diagnosis: Ac hypoxemic resp failure; Pneumonia; PUI COVID-19; CHF; COPD; HTN Interval history: Patient seen and examined Patient intubated on trach Discussed with RN at the bedside H/H STABLE, on NG suction Objective - Exam Narrative Exam: General appearance: Present: well-nourished, opens eyes to names and follows minor command - EENT Eyes: Present: PERRL, EOM intact. Absent: scleral icterus ENT: clear oral mucosa, dentition normal - Neck Neck: Present: supple, normal ROM - Respiratory Respiratory effort: normal, mechanical ventilation with trach Respiratory: bilateral: rales - Cardiovascular Rhythm: regular Heart Sounds: Present: S1 & S2, tachycardic. Absent: gallop, systolic murmur, diastolic murmur, rub - Extremities Extremities: no ischemia, pulses intact, pulses symmetrical, No edema, Full ROM Peripheral Pulses: within normal limits - Abdominal General gastrointestinal: Present: soft, + tender, distended, hypoactive bowel sounds. - Integumentary Integumentary: Present: clear, warm, dry. Absent: rash - Musculoskeletal Musculoskeletal: no joint swelling - Psychiatric Psychiatric: no agitation Neurology: no focal deficits - Constitutional Vitals: Vital Signs - 12hr 01/08/20 01/08/20 01/08/20 07:00 07:31 08:00 Temperature 98.8 F Pulse Rate 101 H 152 H 150 H Pulse Rate [ 150 H From Monitor] Respiratory 26 H 27 H 30 H Rate Blood Pressure 148/98 148/98 O2 Sat by Pulse 93 80 L 83 L Oximetry O2 Sat by Pulse Oximetry [ Assessment] 01/08/20 01/08/20 01/08/20 08:01 08:07 08:30 Temperature Pulse Rate 148 H 151 H 139 H Pulse Rate [ From Monitor] Respiratory 28 H 32 H Rate Blood Pressure 148/98 186/120 189/120 O2 Sat by Pulse 100 100 88 Oximetry O2 Sat by Pulse Oximetry [ Assessment] 01/08/20 01/08/20 01/08/20 08:57 09:00 09:30 Temperature Pulse Rate 142 H 142 H 98 H Pulse Rate [ From Monitor] Respiratory 32 H 41 H Rate Blood Pressure 189/120 172/126 132/85 O2 Sat by Pulse 99 100 Oximetry O2 Sat by Pulse Oximetry [ Assessment] 01/08/20 01/08/2020 10:01 10:30 11:00 Temperature Pulse Rate 85 81 84 Pulse Rate [ From Monitor] Respiratory 22 40 H 26 H Rate Blood Pressure 115/80 111/72 114/78 O2 Sat by Pulse 100 100 Oximetry O2 Sat by Pulse Oximetry [ Assessment] 01/08/20 01/08/20 01/08/20 11:30 11:56 12:00 Temperature 98.6 F Pulse Rate 82 69 74 Pulse Rate [ 74 From Monitor] Respiratory 27 H 17 Rate Blood Pressure 107/76 107/76 100/67 O2 Sat by Pulse 97 98 98 Oximetry O2 Sat by Pulse Oximetry [ Assessment] 01/08/20 01/08/20 01/08/20 12:30 13:00 13:30 Temperature Pulse Rate 74 76 77 Pulse Rate [ From Monitor] Respiratory 20 25 H 14 Rate Blood Pressure 102/70 103/73 101/72 O2 Sat by Pulse 98 99 100 Oximetry O2 Sat by Pulse Oximetry [ Assessment] 01/08/20 01/08/20 01/08/20 13:44 14:00 14:30 Temperature Pulse Rate 77 77 77 Pulse Rate [ From Monitor] Respiratory 24 21 Rate Blood Pressure 101/72 104/73 105/72 O2 Sat by Pulse 99 Oximetry O2 Sat by Pulse Oximetry [ Assessment] 01/08/20 01/08/20 01/08/20 15:00 15:30 16:00 Temperature 98.8 F Pulse Rate 80 76 74 Pulse Rate [ 74 From Monitor] Respiratory 27 H 27 H 26 H Rate Blood Pressure 105/75 94/70 103/71 O2 Sat by Pulse 97 97 98 Oximetry O2 Sat by Pulse Oximetry [ Assessment] 01/08/20 01/08/20 01/08/20 16:30 16:59 17:00 Temperature Pulse Rate 83 89 Pulse Rate [ From Monitor] Respiratory 22 31 H Rate Blood Pressure 120/86 118/84 118/84 O2 Sat by Pulse 99 100 100 Oximetry O2 Sat by Pulse 99 Oximetry [ Assessment] 01/08/20 01/08/20 17:30 18:00 Temperature Pulse Rate 72 76 Pulse Rate [ From Monitor] Respiratory 20 23 Rate Blood Pressure 104/74 111/72 O2 Sat by Pulse 98 100 Oximetry O2 Sat by Pulse Oximetry [ Assessment] - Labs CBC & Chem 7: 01/09/20 04:11 01/09/20 04:11 Labs: Abnormal lab results 01/08/20 01/08/20 01/08/20 Range/Units 00:03 05:41 09:28 POC Glucose 130 H 138 H 181 H (70-105) 01/08/20 01/08/20 Range/Units 11:42 18:21 POC Glucose 150 H 129 H (70-105) HEART Score - HEART Score Troponin: Troponin T < 0.010 ng/mL (0.00-0.029) 11/24/19 02:53
[2020-01-08 21:16] LABS: Blood Urea Nitrogen 12 mg/dL (9-20); Calcium 8.7 mg/dL (8.4-10.2); Hemolysis Index 102
[2020-01-08 21:18] LABS: BUN/Creatinine Ratio 17
[2020-01-09] MEDS: DEXTROSE 5% IN WATER 1,000 ML IV SCH ×2 (01:18→19:29)
[2020-01-09] MEDS ORDERED: SODIUM CHLORIDE 0.9% 250ML 250 ML IV ONE (03:09)
[2020-01-09 05:21] LABS: Basophils # (Auto) 0.1 K/mm3 (0.0-0.1); Basophils % (Auto) 1.6 % (0.0-1.8); Eosinophils # (Auto) 0.2 K/mm3 (0.0-0.4); Hematocrit 28.7 % (35.5-45.6); Hemoglobin 8.9 gm/dl (11.8-15.2); Lymphocytes # (Auto) 1.5 K/mm3 (1.2-5.4); Lymphocytes % (Auto) 19.1 % (13.4-35.0); Mean Corpuscular HGB Conc 31 % (32-34); Mean Corpuscular Volume 84 fl (84-94); Monocytes # (Auto) 0.7 K/mm3 (0.0-0.8); Monocytes % (Auto) 8.6 % (0.0-7.3); Platelet Count 250 K/mm3 (140-440); Red Blood Count 3.43 M/mm3 (3.65-5.03); Red Cell Distribution Width 17.6 % (13.2-15.2)
[2020-01-09 05:25] LABS: Blood Urea Nitrogen 11 mg/dL (9-20); Hemolysis Index 0
[2020-01-09 05:45] LABS: BUN/Creatinine Ratio 18
[2020-01-09] MEDS: METOPROLOL TARTRATE 5 MG/5 ML INJ IV SCH ×5 (06:29→20:00)
[2020-01-09] MEDS: METOPROLOL TARTRATE 25 MG TAB FEEDTUBE SCH ×4 (06:30→19:12)
[2020-01-09] MEDS: POLYETHYLENE GLYCOL 3350 17 GM POWDER PO SCH ×2 (06:32→21:10)
[2020-01-09] MEDS: TAMSULOSIN 0.4 MG CAP PO SCH ×2 (06:32→21:08)
[2020-01-09] MEDS: MORPHINE 2 MG/1 ML INJ IV PRN ×3 (07:21→15:27)
--- NOTE | 2020-01-09 09:22 | Progress Note ---
Assessment and Plan Paroxysmal atrial fibrillation Maintaining sinus rhythm Ischemic cardiomyopathy LVEF 40-45% Coronary artery disease s/p PCI Cath 12/2018 - no evidence of obstructive CAD Chronic respiratory failure s/p trach and mechanically ventilated History of COPD Multifocal pneumonia Small bowel obstruction Possible Ileus Acute PE/DVT on SC lovenox Recommendations: Continue current management No new cardiac recommendations Subjective Date of service: 01/09/20 Principal diagnosis: Ac hypoxemic resp failure; Pneumonia; PUI COVID-19; CHF; COPD; HTN Interval history: Patient appears comfortable. Patient has a trach and is mechanically ventilated. Tele is showing sinus rhythm. Objective Vital Signs Temp Pulse Pulse Resp BP Pulse Ox Pulse Ox 01/09/20 08:00 78 24 116/70 99 01/09/20 07:57 98.2 F 01/09/20 07:55 100 01/09/20 07:52 79 117/69 100 01/09/20 07:39 74 18 100 01/09/20 07:30 75 25 H 117/69 98 01/09/20 07:00 74 19 101/67 99 01/09/20 06:30 69 23 101/63 100 01/09/20 06:00 71 22 111/72 98 01/09/20 05:30 74 24 105/68 98 01/09/20 05:00 78 22 111/70 92 01/09/20 04:30 69 18 103/65 98 01/09/20 04:01 74 107/67 99 01/09/20 04:00 74 14 101/66 98 01/09/20 03:40 97.8 F 01/09/20 03:30 68 25 H 101/66 99 01/09/20 03:00 76 21 105/60 100 01/09/20 02:44 100 01/09/20 02:30 64 24 96/60 99 01/09/20 02:00 64 18 100/63 99 01/09/20 01:30 65 19 96/62 01/09/20 01:00 64 23 93/61 100 01/09/20 00:30 63 21 94/61 99 01/09/20 00:00 64 65 19 95/59 99 01/08/20 23:58 66 95/59 100 01/08/20 23:30 64 26 H 95/61 100 01/08/20 23:26 98.8 F 01/08/20 23:17 64 20 97/61 99 01/08/20 23:00 65 18 109/70 99 01/08/20 22:30 76 27 H 109/70 100 01/08/20 22:00 77 19 114/75 100 01/08/20 21:30 62 26 H 111/72 96 01/08/20 21:00 64 22 105/69 95 01/08/20 20:30 67 19 105/71 94 01/08/20 20:14 70 101/68 94 01/08/20 20:00 69 65 26 H 101/68 100 01/08/20 19:50 98.4 F 01/08/20 19:30 70 18 101/68 100 01/08/20 19:00 68 13 106/67 100 01/08/20 18:30 64 17 99/68 100 01/08/20 18:00 76 23 111/72 100 01/08/20 17:30 72 20 104/74 98 01/08/20 17:00 31 H 118/84 100 01/08/20 16:59 89 118/84 100 99 01/08/20 16:30 83 22 120/86 99 01/08/20 16:00 98.8 F 74 74 26 H 103/71 98 01/08/20 15:30 76 27 H 94/70 97 01/08/20 15:00 80 27 H 105/75 97 01/08/20 14:30 77 21 105/72 99 01/08/20 14:00 77 24 104/73 01/08/20 13:44 77 101/72 01/08/20 13:30 77 14 101/72 100 01/08/20 13:00 76 25 H 103/73 99 01/08/20 12:30 74 20 102/70 98 01/08/20 12:00 98.6 F 74 74 17 100/67 98 01/08/20 11:56 69 107/76 98 01/08/20 11:30 82 27 H 107/76 97 01/08/20 11:00 84 26 H 114/78 01/08/20 10:30 81 40 H 111/72 100 01/08/20 10:01 85 22 115/80 100 01/08/20 09:30 98 H 41 H 132/85 100 - Physical Examination General: Other (vent to trach) HEENT: Positive: PERRL Neck: Positive: neck supple Cardiac: Positive: Reg Rate and Rhythm Lungs: Positive: Ventilated Respirations Neuro: Positive: Other (Sedated, on the vent via trach) Abdomen: Positive: Soft Skin: Positive: Clear Extremities: Absent: edema - Labs and Meds CBC 01/09/20 Range/Units 04:11 WBC 8.0 (4.5-11.0) K/mm3 RBC 3.43 L (3.65-5.03) M/mm3 Hgb 8.9 L (11.8-15.2) gm/dl Hct 28.7 L (35.5-45.6) % Plt Count 250 (140-440) K/mm3 Lymph # (Auto) 1.5 (1.2-5.4) K/mm3 Love # (Auto) 0.7 (0.0-0.8) K/mm3 Eos # (Auto) 0.2 (0.0-0.4) K/mm3 Baso # (Auto) 0.1 (0.0-0.1) K/mm3 Comprehensive Metabolic Panel 01/08/20 01/09/20 Range/Units 19:25 04:11 Sodium 145 D 147 H (137-145) mmol/L Potassium 4.2 3.3 L D (3.6-5.0) mmol/L Chloride 103.1 104.0 (98-107) mmol/L Carbon Dioxide 26 D 32 H (22-30) mmol/L BUN 12 11 (9-20) mg/dL Creatinine 0.7 L 0.6 L (0.8-1.3) mg/dL Glucose 117 H 106 H (75-100) mg/dL Calcium 8.7 9.0 (8.4-10.2) mg/dL - Allied health notes Allied health notes reviewed: RT
[2020-01-09] MEDS ORDERED: LIPASE 10,500/PROTEASE 25,000/AMYLASE 43,750 (UNITS) DR CAP FEEDTUBE PRN (11:08)
[2020-01-09] MEDS ORDERED: SIMPLE SYRUP 15 ML FEEDTUBE PRN ×4 (11:08→12:01)
[2020-01-09] MEDS ORDERED: SODIUM BICARBONATE 325 MG TAB FEEDTUBE PRN ×2 (11:08→12:01)
[2020-01-09] MEDS: DOCUSATE SODIUM 100 MG/10 ML ORAL LIQD FEEDTUBE SCH ×2 (11:13→21:07)
[2020-01-09] MEDS: FAMOTIDINE 20 MG/2 ML INJ IV SCH ×2 (11:15→21:08)
[2020-01-09] MEDS: QUEtiapine 200 MG TAB PO SCH ×2 (11:15→21:09)
[2020-01-09] MEDS: AMIODARONE 200 MG TAB PO SCH ×2 (11:16→21:09)
[2020-01-09] MEDS: ENOXAPARIN 120 MG/0.8 ML INJ SUB-Q SCH ×2 (11:18→21:11)
--- NOTE | 2020-01-09 12:02 | Progress Note ---
Assessment and Plan 64 yo M with pSBO vs ileus Pt stable. Gastric output decreased over last 24 hours. NGT has been clamped x 24 hours. Plan: 1. dc NGT 2. start TTF via PEG - vital HF @10cc/hr - do not advance 3. suppository daily. 4. gentle IVF. Will give bolus of 500cc NS for low urine output. 5. monitor lytes and replace as needed Thank you. Please call with questions. Subjective Date of service: 01/09/20 Narrative: Pt seen and examined. No overnight events. He is currently on the ventilator via the tracheostomy. He denies abdominal pain, nausea, vomiting. No bowel movement in last 24 hours. The patient is asking when he can eat and drink. Objective Vital Signs - 12hr 01/09/20 01/09/20 01/09/20 00:00 00:30 01:00 Temperature Pulse Rate 64 63 64 Pulse Rate [ 65 From Monitor] Respiratory 19 21 23 Rate Blood Pressure 95/59 94/61 93/61 O2 Sat by Pulse 99 99 100 Oximetry O2 Sat by Pulse Oximetry [ Assessment] 01/09/20 01/09/20 01/09/20 01:30 02:00 02:30 Temperature Pulse Rate 65 64 64 Pulse Rate [ From Monitor] Respiratory 19 18 24 Rate Blood Pressure 96/62 100/63 96/60 O2 Sat by Pulse 99 99 Oximetry O2 Sat by Pulse Oximetry [ Assessment] 01/09/20 01/09/20 01/09/20 02:44 03:00 03:30 Temperature Pulse Rate 76 68 Pulse Rate [ From Monitor] Respiratory 21 25 H Rate Blood Pressure 105/60 101/66 O2 Sat by Pulse 100 99 Oximetry O2 Sat by Pulse 100 Oximetry [ Assessment] 01/09/20 01/09/20 01/09/20 03:40 04:00 04:01 Temperature 97.8 F Pulse Rate 74 74 Pulse Rate [ From Monitor] Respiratory 14 Rate Blood Pressure 101/66 107/67 O2 Sat by Pulse 98 99 Oximetry O2 Sat by Pulse Oximetry [ Assessment] 01/09/20 01/09/20 01/09/20 04:30 05:00 05:30 Temperature Pulse Rate 69 78 74 Pulse Rate [ From Monitor] Respiratory 18 22 24 Rate Blood Pressure 103/65 111/70 105/68 O2 Sat by Pulse 98 92 98 Oximetry O2 Sat by Pulse Oximetry [ Assessment] 01/09/20 01/09/20 01/09/20 06:00 06:30 07:00 Temperature Pulse Rate 71 69 74 Pulse Rate [ From Monitor] Respiratory 22 23 19 Rate Blood Pressure 111/72 101/63 101/67 O2 Sat by Pulse 98 100 99 Oximetry O2 Sat by Pulse Oximetry [ Assessment] 01/09/20 01/09/20 01/09/20 07:30 07:39 07:52 Temperature Pulse Rate 75 79 Pulse Rate [ 74 From Monitor] Respiratory 25 H 18 Rate Blood Pressure 117/69 117/69 O2 Sat by Pulse 98 100 100 Oximetry O2 Sat by Pulse Oximetry [ Assessment] 01/09/20 01/09/20 01/09/20 07:55 07:57 08:00 Temperature 98.2 F Pulse Rate 78 Pulse Rate [ From Monitor] Respiratory 24 Rate Blood Pressure 116/70 O2 Sat by Pulse 99 Oximetry O2 Sat by Pulse 100 Oximetry [ Assessment] 01/09/20 01/09/20 01/09/20 08:30 09:00 09:30 Temperature Pulse Rate 78 75 79 Pulse Rate [ From Monitor] Respiratory 22 22 21 Rate Blood Pressure 110/72 117/72 112/68 O2 Sat by Pulse 100 99 100 Oximetry O2 Sat by Pulse Oximetry [ Assessment] 01/09/20 01/09/20 01/09/20 10:00 10:30 11:00 Temperature Pulse Rate 77 76 82 Pulse Rate [ From Monitor] Respiratory 21 25 H 21 Rate Blood Pressure 110/72 105/75 112/75 O2 Sat by Pulse 100 100 100 Oximetry O2 Sat by Pulse Oximetry [ Assessment] 01/09/20 01/09/20 01/09/20 11:15 11:21 11:30 Temperature Pulse Rate 77 81 77 Pulse Rate [ From Monitor] Respiratory 24 Rate Blood Pressure 112/75 112/75 119/80 O2 Sat by Pulse 99 Oximetry O2 Sat by Pulse Oximetry [ Assessment] - General physical appearance Narrative Exam: Gen: Resting comfortably. NAD ENT: trach in place. site c/d/i. NGT in place - clamped CV: S1, S2+ Resp: on vent Abd: soft, ND, NT. PEG site c/d/i with bumper at 4cm. G tube output green Ext: edema : sánchez with dark yellow urine - Labs 01/09/20 04:11 01/09/20 04:11 Diabetes panel 01/08/20 01/09/20 Range/Units 19:25 04:11 Sodium 145 D 147 H (137-145) mmol/L Potassium 4.2 3.3 L D (3.6-5.0) mmol/L Chloride 103.1 104.0 (98-107) mmol/L Carbon Dioxide 26 D 32 H (22-30) mmol/L BUN 12 11 (9-20) mg/dL Creatinine 0.7 L 0.6 L (0.8-1.3) mg/dL Glucose 117 H 106 H (75-100) mg/dL Calcium 8.7 9.0 (8.4-10.2) mg/dL Calcium panel 01/08/20 01/09/20 Range/Units 19:25 04:11 Calcium 8.7 9.0 (8.4-10.2) mg/dL Pituitary panel 01/08/20 01/09/20 Range/Units 19:25 04:11 Sodium 145 D 147 H (137-145) mmol/L Potassium 4.2 3.3 L D (3.6-5.0) mmol/L Chloride 103.1 104.0 (98-107) mmol/L Carbon Dioxide 26 D 32 H (22-30) mmol/L BUN 12 11 (9-20) mg/dL Creatinine 0.7 L 0.6 L (0.8-1.3) mg/dL Glucose 117 H 106 H (75-100) mg/dL Calcium 8.7 9.0 (8.4-10.2) mg/dL Adrenal panel 01/08/20 01/09/20 Range/Units 19:25 04:11 Sodium 145 D 147 H (137-145) mmol/L Potassium 4.2 3.3 L D (3.6-5.0) mmol/L Chloride 103.1 104.0 (98-107) mmol/L Carbon Dioxide 26 D 32 H (22-30) mmol/L BUN 12 11 (9-20) mg/dL Creatinine 0.7 L 0.6 L (0.8-1.3) mg/dL Glucose 117 H 106 H (75-100) mg/dL Calcium 8.7 9.0 (8.4-10.2) mg/dL
[2020-01-09] MEDS ORDERED: SODIUM CHLORIDE 0.9% 500 ML 500 ML IV ONE (12:03)
--- NOTE | 2020-01-09 14:22 | Progress Note ---
Assessment and Plan Acute hypoxemic respiratory failure Bilateral pneumonia, community acquired. Acute LLL branch P.E. Acute DVT Person under investigation for COVID-19 infection. Acute congestive heart failure exacerbation. History of cerebrovascular accident. Acute chronic obstructive pulmonary disease exacerbation. Hypertension and hypertensive urgency at presentation. History of arthritis. Leukocytosis. Lactic acidosis. Oropharyngeal dysphagia - continue daily SAT's and SBT assessment as tolerated - continue full anticoagulation with Lovenox - to [id number] trickle feeding today - continue scopolamine patch - continue care as below otherwise; - continue seroquel for anxiolysis / delirium - COVID isolation per facility protocol - prn diuresis while following electrolytes / I's & O's - continue to wean oxygen for O2 sat's > 92% - continue bronchodilators with routine trach care and pulmonary hygiene per RT - VAP bundle addressed (Aspiration precautions, HOB >40) - continue to wean per pulmonary driven protocols - sedation target is RASS 0 to -1 - continue prn analgesia per CPOT score - follow clinically re: fever curves / trend WBC - Avoid delirium (no benzodiazepines if they can be avoided) - Maintain sleep-wake cycle - enteral nutrition at goal rate as tolerated - continue accucheck's with glycemic control per SSI for target blood glucose goal of 140-180 mg/dL while critically ill; Avoid hypoglycemia - for VTE he is on IV Heparin - continue stress ulcer prophylaxis with Famotidine - continue mobility protocols for pressure ulcer prophylaxis - continue fall precautions - continue wound care management per RN / WCT - Supportive transfusions to keep HgB>7g/dL - CXR's and ABG's prn - Continue to monitor neurologic function - Continue chronic home medications - Continue all supportive care ........ re-evaluate in am & prn CONDITION: CRITICAL PROGNOSIS: GUARDED CODE STATUS: FULL CODE The high probability of a clinically significant, sudden or life threatening deterioration of the [Respiratory, cardiovascular & neurological] system(s) required my full and direct attention, intervention and personal management. The aggregate critical care time was [33] minutes without overlap. Time includes spent on [x] Data Review and interpretation [x] Patient assessment and monitoring of vital signs [x] Documentation [x] Medication orders and management Subjective Date of service: 01/09/20 Principal diagnosis: Ac hypoxemic resp failure; Pneumonia; PUI COVID-19; CHF; COPD; HTN Interval history: Patient is seen today for: Acute hypoxemic respiratory failure; [place]. Pneumonia (CAP); PUI COVID-19 infection; AE-CHF; AE-COPD; H/O CVA; HTN Seen and examined at bedside; 24 hour events reviewed; nursing and respiratory care staff consulted; no adverse overnight events reported to me; resting peacefully in bed; remains on MVS; continues to wean tenuously and tolerated only a couple hours on PSV trial today Objective Vital Signs - 12hr 01/09/20 01/09/20 01/09/20 02:30 02:44 03:00 Temperature Pulse Rate 64 76 Pulse Rate [ From Monitor] Respiratory 24 21 Rate Blood Pressure 96/60 105/60 O2 Sat by Pulse 99 100 Oximetry O2 Sat by Pulse 100 Oximetry [ Assessment] 01/09/20 01/09/20 01/09/20 03:30 03:40 04:00 Temperature 97.8 F Pulse Rate 68 74 Pulse Rate [ From Monitor] Respiratory 25 H 14 Rate Blood Pressure 101/66 101/66 O2 Sat by Pulse 99 98 Oximetry O2 Sat by Pulse Oximetry [ Assessment] 01/09/20 01/09/20 01/09/20 04:01 04:30 05:00 Temperature Pulse Rate 74 69 78 Pulse Rate [ From Monitor] Respiratory 18 22 Rate Blood Pressure 107/67 103/65 111/70 O2 Sat by Pulse 99 98 92 Oximetry O2 Sat by Pulse Oximetry [ Assessment] 01/09/20 01/09/20 01/09/20 05:30 06:00 06:30 Temperature Pulse Rate 74 71 69 Pulse Rate [ From Monitor] Respiratory 24 22 23 Rate Blood Pressure 105/68 111/72 101/63 O2 Sat by Pulse 98 98 100 Oximetry O2 Sat by Pulse Oximetry [ Assessment] 01/09/20 01/09/20 01/09/20 07:00 07:30 07:39 Temperature Pulse Rate 74 75 Pulse Rate [ 74 From Monitor] Respiratory 19 25 H 18 Rate Blood Pressure 101/67 117/69 O2 Sat by Pulse 99 98 100 Oximetry O2 Sat by Pulse Oximetry [ Assessment] 01/09/20 01/09/20 01/09/20 07:52 07:55 07:57 Temperature 98.2 F Pulse Rate 79 Pulse Rate [ From Monitor] Respiratory Rate Blood Pressure 117/69 O2 Sat by Pulse 100 Oximetry O2 Sat by Pulse 100 Oximetry [ Assessment] 01/09/20 01/09/20 01/09/20 08:00 08:30 09:00 Temperature Pulse Rate 78 78 75 Pulse Rate [ From Monitor] Respiratory 24 22 22 Rate Blood Pressure 116/70 110/72 117/72 O2 Sat by Pulse 99 100 99 Oximetry O2 Sat by Pulse Oximetry [ Assessment] 01/09/20 01/09/20 01/09/20 09:30 10:00 10:30 Temperature Pulse Rate 79 77 76 Pulse Rate [ From Monitor] Respiratory 21 21 25 H Rate Blood Pressure 112/68 110/72 105/75 O2 Sat by Pulse 100 100 100 Oximetry O2 Sat by Pulse Oximetry [ Assessment] 01/09/20 01/09/20 01/09/20 11:00 11:15 11:21 Temperature Pulse Rate 82 77 81 Pulse Rate [ From Monitor] Respiratory 21 Rate Blood Pressure 112/75 112/75 112/75 O2 Sat by Pulse 100 Oximetry O2 Sat by Pulse Oximetry [ Assessment] 01/09/20 01/09/20 01/09/20 11:30 12:00 12:09 Temperature 98.3 F Pulse Rate 77 69 73 Pulse Rate [ 81 From Monitor] Respiratory 24 22 Rate Blood Pressure 119/80 117/73 117/73 O2 Sat by Pulse 99 99 100 Oximetry O2 Sat by Pulse Oximetry [ Assessment] 01/09/20 01/09/20 12:30 13:00 Temperature Pulse Rate 80 72 Pulse Rate [ From Monitor] Respiratory 25 H 23 Rate Blood Pressure 117/73 107/75 O2 Sat by Pulse 99 Oximetry O2 Sat by Pulse Oximetry [ Assessment] Constitutional: no acute distress, asleep (sedated), other (elelderly and obese male, normocephalic with mildly increased respiratory effort at rest on MVS) Eyes: non-icteric ENT: oropharynx moist, other (trach to MVS, NGT to LIS) Neck: supple, no JVD Effort: mildly labored Ascultation: Bilateral: diminished breath sounds, rhonchi, other (mild secretions) Percussion: Bilateral: not dull Cardiovascular: irregular rhythm, other (S1,S2) Gastrointestinal: normoactive bowel sounds, soft, non-tender, other (distended, PEG in place) Integumentary: normal Extremities: no cyanosis, pulses normal, no ischemia or petechiae, edema (bilateral upper ) Neurologic: non-focal exam (moves extremities), pupils equal and round Psychiatric: mood appropriate, affect normal CBC and BMP: 01/09/20 04:11 01/10/20 04:05 ABG, PT/INR, D-dimer: ABG ABG pH 7.415 pH Units (7.350-7.450) 01/03/20 18:30 POC ABG pCO2 52.9 mmHg (32.0-48.0) H 12/22/19 03:22 ABG pCO2 57.6 mm Hg 01/03/20 18:30 POC ABG pO2 52.3 mmHg (83-108) L 12/22/19 03:22 ABG pO2 70.7 mm Hg (80.0-90.0) L 01/03/20 18:30 POC ABG HCO3 33.4 12/22/19 03:22 ABG O2 Saturation 94.4 % (95.0-99.0) L 01/03/20 18:30 PT/INR, D-dimer PT 13.8 Sec. (12.2-14.9) 12/21/19 10:13 INR 1.05 (0.87-1.13) 12/21/19 10:13 Abnormal lab findings: Abnormal Labs 11/24/19 11/24/19 11/24/19 02:53 02:53 03:45 WBC 14.3 H RBC Hgb Hct MCHC RDW 17.2 H MCH Lymph % (Auto) [place] % (Auto) [place] # Eos # Lymph # (Auto) [place] # (Auto) Eos # (Auto) Seg Neutrophils % Seg Neuts % (Manual) Baso # (Auto) Lymphocytes % (Manual) Monocytes % (Manual) Eosinophils % (Manual) Basophils % (Manual) Seg Neutrophils # Seg Neutrophils # Man 8.3 H Lymphocytes # (Manual) Monocytes # (Manual) 0.9 H Eosinophils # (Manual) Nucleated RBC % Basophils # (Manual) APTT Heparin Anti-Xa Level ABG pH 7.313 L POC ABG pO2 ABG pO2 102.8 H ABG HCO3 ABG O2 Saturation ABG Base Excess -2.9 L POC ABG pCO2 ABG Hemoglobin ABG Oxyhemoglobin Oxyhemoglobin 93.9 L Sodium Potassium Chloride Carbon Dioxide BUN Creatinine Glucose 195 H POC Glucose Lactic Acid Calcium Phosphorus Magnesium AST ALT Lactate Dehydrogenase CK-MB (CK-2) 4.3 H C-Reactive Protein NT-Pro-B Natriuret Pep 1181 H Total Protein Albumin Urine WBC (Auto) 11/24/19 11/24/19 11/24/19 04:53 04:53 10:37 WBC RBC Hgb Hct MCHC RDW MCH Lymph % (Auto) [place] % (Auto) [place] # Eos # Lymph # (Auto) [place] # (Auto) Eos # (Auto) Seg Neutrophils % Seg Neuts % (Manual) Baso # (Auto) Lymphocytes % (Manual) Monocytes % (Manual) Eosinophils % (Manual) Basophils % (Manual) Seg Neutrophils # Seg Neutrophils # Man Lymphocytes # (Manual) Monocytes # (Manual) Eosinophils # (Manual) Nucleated RBC % Basophils # (Manual) APTT Heparin Anti-Xa Level ABG pH POC ABG pO2 ABG pO2 ABG HCO3 ABG O2 Saturation ABG Base Excess POC ABG pCO2 ABG Hemoglobin ABG Oxyhemoglobin Oxyhemoglobin Sodium Potassium Chloride Carbon Dioxide BUN Creatinine Glucose 162 H POC Glucose Lactic Acid 2.40 H* 2.50 H* Calcium Phosphorus Magnesium AST ALT Lactate Dehydrogenase 240 H CK-MB (CK-2) C-Reactive Protein NT-Pro-B Natriuret Pep Total Protein Albumin Urine WBC (Auto) 11/24/19 11/24/19 11/24/19 12:21 14:50 19:54 WBC RBC Hgb Hct MCHC RDW MCH Lymph % (Auto) [place] % (Auto) [place] # Eos # Lymph # (Auto) [place] # (Auto) Eos # (Auto) Seg Neutrophils % Seg Neuts % (Manual) Baso # (Auto) Lymphocytes % (Manual) Monocytes % (Manual) Eosinophils % (Manual) Basophils % (Manual) Seg Neutrophils # Seg Neutrophils # Man Lymphocytes # (Manual) Monocytes # (Manual) Eosinophils # (Manual) Nucleated RBC % Basophils # (Manual) APTT Heparin Anti-Xa Level ABG pH POC ABG pO2 ABG pO2 ABG HCO3 ABG O2 Saturation ABG Base Excess POC ABG pCO2 ABG Hemoglobin ABG Oxyhemoglobin Oxyhemoglobin Sodium Potassium Chloride Carbon Dioxide BUN Creatinine Glucose POC Glucose 145 H 143 H 124 H Lactic Acid Calcium Phosphorus Magnesium AST ALT Lactate Dehydrogenase CK-MB (CK-2) C-Reactive Protein NT-Pro-B Natriuret Pep Total Protein Albumin Urine WBC (Auto) 11/25/19 11/25/19 11/25/19 00:18 03:18 05:11 WBC 13.7 H RBC Hgb Hct MCHC RDW 17.1 H MCH Lymph % (Auto) 10.8 L [place] % (Auto) 8.7 H [place] # 1.2 H Eos # Lymph # (Auto) [place] # (Auto) Eos # (Auto) Seg Neutrophils % 80.2 H Seg Neuts % (Manual) Baso # (Auto) Lymphocytes % (Manual) Monocytes % (Manual) Eosinophils % (Manual) Basophils % (Manual) Seg Neutrophils # 11.0 H Seg Neutrophils # Man Lymphocytes # (Manual) Monocytes # (Manual) Eosinophils # (Manual) Nucleated RBC % Basophils # (Manual) APTT Heparin Anti-Xa Level ABG pH 7.333 L POC ABG pO2 ABG pO2 61.2 L ABG HCO3 ABG O2 Saturation 90.2 L ABG Base Excess POC ABG pCO2 ABG Hemoglobin 13.7 L ABG Oxyhemoglobin Oxyhemoglobin 88.2 L Sodium Potassium Chloride Carbon Dioxide BUN Creatinine Glucose POC Glucose 109 H Lactic Acid Calcium Phosphorus Magnesium AST ALT Lactate Dehydrogenase CK-MB (CK-2) C-Reactive Protein NT-Pro-B Natriuret Pep Total Protein Albumin Urine WBC (Auto) 11/25/19 11/25/19 11/26/19 05:11 11:40 03:12 WBC RBC Hgb Hct MCHC RDW MCH Lymph % (Auto) [place] % (Auto) [place] # Eos # Lymph # (Auto) [place] # (Auto) Eos # (Auto) Seg Neutrophils % Seg Neuts % (Manual) Baso # (Auto) Lymphocytes % (Manual) Monocytes % (Manual) Eosinophils % (Manual) Basophils % (Manual) Seg Neutrophils # Seg Neutrophils # Man Lymphocytes # (Manual) Monocytes # (Manual) Eosinophils # (Manual) Nucleated RBC % Basophils # (Manual) APTT Heparin Anti-Xa Level ABG pH POC ABG pO2 ABG pO2 155.1 H ABG HCO3 27.8 H ABG O2 Saturation ABG Base Excess POC ABG pCO2 ABG Hemoglobin 12.2 L ABG Oxyhemoglobin Oxyhemoglobin Sodium Potassium Chloride Carbon Dioxide BUN 23 H Creatinine Glucose 110 H POC Glucose 108 H Lactic Acid Calcium Phosphorus Magnesium AST ALT Lactate Dehydrogenase CK-MB (CK-2) C-Reactive Protein NT-Pro-B Natriuret Pep Total Protein Albumin Urine WBC (Auto) 11/26/19 11/26/19 11/26/19 06:17 10:43 10:43 WBC 11.4 H RBC Hgb Hct MCHC RDW 17.1 H MCH Lymph % (Auto) [place] % (Auto) [place] # Eos # Lymph # (Auto) [place] # (Auto) Eos # (Auto) Seg Neutrophils % Seg Neuts % (Manual) Baso # (Auto) Lymphocytes % (Manual) Monocytes % (Manual) Eosinophils % (Manual) Basophils % (Manual) Seg Neutrophils # Seg Neutrophils # Man Lymphocytes # (Manual) Monocytes # (Manual) Eosinophils # (Manual) Nucleated RBC % Basophils # (Manual) APTT Heparin Anti-Xa Level ABG pH POC ABG pO2 ABG pO2 ABG HCO3 ABG O2 Saturation ABG Base Excess POC ABG pCO2 ABG Hemoglobin ABG Oxyhemoglobin Oxyhemoglobin Sodium Potassium Chloride Carbon Dioxide BUN 29 H Creatinine Glucose POC Glucose 107 H Lactic Acid Calcium Phosphorus Magnesium AST ALT Lactate Dehydrogenase CK-MB (CK-2) C-Reactive Protein NT-Pro-B Natriuret Pep Total Protein Albumin Urine WBC (Auto) 11/26/19 11/27/19 11/27/19 17:11 01:53 04:11 WBC RBC Hgb Hct MCHC RDW MCH Lymph % (Auto) [place] % (Auto) [place] # Eos # Lymph # (Auto) [place] # (Auto) Eos # (Auto) Seg Neutrophils % Seg Neuts % (Manual) Baso # (Auto) Lymphocytes % (Manual) Monocytes % (Manual) Eosinophils % (Manual) Basophils % (Manual) Seg Neutrophils # Seg Neutrophils # Man Lymphocytes # (Manual) Monocytes # (Manual) Eosinophils # (Manual) Nucleated RBC % Basophils # (Manual) APTT Heparin Anti-Xa Level ABG pH POC ABG pO2 ABG pO2 ABG HCO3 29.2 H ABG O2 Saturation ABG Base Excess 3.4 H POC ABG pCO2 ABG Hemoglobin 13.3 L ABG Oxyhemoglobin Oxyhemoglobin 94.5 L Sodium Potassium Chloride Carbon Dioxide BUN Creatinine Glucose POC Glucose 113 H 108 H Lactic Acid Calcium Phosphorus Magnesium AST ALT Lactate Dehydrogenase CK-MB (CK-2) C-Reactive Protein NT-Pro-B Natriuret Pep Total Protein Albumin Urine WBC (Auto) 11/27/19 11/28/19 11/28/19 05:27 05:00 05:25 WBC RBC Hgb Hct MCHC RDW MCH Lymph % (Auto) [place] % (Auto) [place] # Eos # Lymph # (Auto) [place] # (Auto) Eos # (Auto) Seg Neutrophils % Seg Neuts % (Manual) Baso # (Auto) Lymphocytes % (Manual) Monocytes % (Manual) Eosinophils % (Manual) Basophils % (Manual) Seg Neutrophils # Seg Neutrophils # Man Lymphocytes # (Manual) Monocytes # (Manual) Eosinophils # (Manual) Nucleated RBC % Basophils # (Manual) APTT Heparin Anti-Xa Level ABG pH POC ABG pO2 68.1 L ABG pO2 ABG HCO3 ABG O2 Saturation ABG Base Excess POC ABG pCO2 ABG Hemoglobin ABG Oxyhemoglobin 91.2 L Oxyhemoglobin Sodium Potassium Chloride Carbon Dioxide BUN Creatinine Glucose POC Glucose 111 H 110 H Lactic Acid Calcium Phosphorus Magnesium AST ALT Lactate Dehydrogenase CK-MB (CK-2) C-Reactive Protein NT-Pro-B Natriuret Pep Total Protein Albumin Urine WBC (Auto) 11/28/19 11/28/19 11/28/19 12:08 13:47 13:47 WBC 11.3 H RBC Hgb Hct MCHC RDW 16.1 H MCH Lymph % (Auto) [place] % (Auto) 9.9 H [place] # 1.1 H Eos # Lymph # (Auto) [place] # (Auto) Eos # (Auto) Seg Neutrophils % 71.4 H Seg Neuts % (Manual) Baso # (Auto) Lymphocytes % (Manual) Monocytes % (Manual) Eosinophils % (Manual) Basophils % (Manual) Seg Neutrophils # 8.1 H Seg Neutrophils # Man Lymphocytes # (Manual) Monocytes # (Manual) Eosinophils # (Manual) Nucleated RBC % Basophils # (Manual) APTT Heparin Anti-Xa Level ABG pH POC ABG pO2 ABG pO2 ABG HCO3 ABG O2 Saturation ABG Base Excess POC ABG pCO2 ABG Hemoglobin ABG Oxyhemoglobin Oxyhemoglobin Sodium Potassium Chloride Carbon Dioxide BUN 23 H Creatinine Glucose 123 H POC Glucose 112 H Lactic Acid Calcium Phosphorus Magnesium AST ALT Lactate Dehydrogenase CK-MB (CK-2) C-Reactive Protein NT-Pro-B Natriuret Pep Total Protein Albumin 3.7 L Urine WBC (Auto) 11/28/19 11/29/19 11/29/19 17:26 03:55 17:04 WBC RBC Hgb Hct MCHC RDW MCH Lymph % (Auto) [place] % (Auto) [place] # Eos # Lymph # (Auto) [place] # (Auto) Eos # (Auto) Seg Neutrophils % Seg Neuts % (Manual) Baso # (Auto) Lymphocytes % (Manual) Monocytes % (Manual) Eosinophils % (Manual) Basophils % (Manual) Seg Neutrophils # Seg Neutrophils # Man Lymphocytes # (Manual) Monocytes # (Manual) Eosinophils # (Manual) Nucleated RBC % Basophils # (Manual) APTT Heparin Anti-Xa Level ABG pH POC ABG pO2 ABG pO2 65.7 L ABG HCO3 28.3 H ABG O2 Saturation 93.9 L ABG Base Excess 3.6 H POC ABG pCO2 ABG Hemoglobin 13.3 L ABG Oxyhemoglobin Oxyhemoglobin 91.5 L Sodium Potassium Chloride Carbon Dioxide BUN Creatinine Glucose POC Glucose 123 H 119 H Lactic Acid Calcium Phosphorus Magnesium AST ALT Lactate Dehydrogenase CK-MB (CK-2) C-Reactive Protein NT-Pro-B Natriuret Pep Total Protein Albumin Urine WBC (Auto) 11/30/19 11/30/19 11/30/19 04:17 04:17 04:56 WBC 13.4 H RBC Hgb Hct MCHC RDW 15.6 H MCH Lymph % (Auto) [place] % (Auto) [place] # Eos # Lymph # (Auto) [place] # (Auto) Eos # (Auto) Seg Neutrophils % Seg Neuts % (Manual) Baso # (Auto) Lymphocytes % (Manual) Monocytes % (Manual) Eosinophils % (Manual) Basophils % (Manual) Seg Neutrophils # Seg Neutrophils # Man Lymphocytes # (Manual) Monocytes # (Manual) Eosinophils # (Manual) Nucleated RBC % Basophils # (Manual) APTT Heparin Anti-Xa Level ABG pH POC ABG pO2 ABG pO2 56.3 L ABG HCO3 29.3 H ABG O2 Saturation 91.5 L ABG Base Excess 4.7 H POC ABG pCO2 ABG Hemoglobin 12.1 L ABG Oxyhemoglobin Oxyhemoglobin 89.2 L Sodium 147 H Potassium Chloride Carbon Dioxide BUN 30 H Creatinine Glucose 124 H POC Glucose Lactic Acid Calcium Phosphorus Magnesium AST ALT Lactate Dehydrogenase CK-MB (CK-2) C-Reactive Protein NT-Pro-B Natriuret Pep Total Protein Albumin 3.8 L Urine WBC (Auto) 11/30/19 11/30/19 11/30/19 05:51 11:54 18:17 WBC RBC Hgb Hct MCHC RDW MCH Lymph % (Auto) [place] % (Auto) [place] # Eos # Lymph # (Auto) [place] # (Auto) Eos # (Auto) Seg Neutrophils % Seg Neuts % (Manual) Baso # (Auto) Lymphocytes % (Manual) Monocytes % (Manual) Eosinophils % (Manual) Basophils % (Manual) Seg Neutrophils # Seg Neutrophils # Man Lymphocytes # (Manual) Monocytes # (Manual) Eosinophils # (Manual) Nucleated RBC % Basophils # (Manual) APTT Heparin Anti-Xa Level ABG pH POC ABG pO2 ABG pO2 ABG HCO3 ABG O2 Saturation ABG Base Excess POC ABG pCO2 ABG Hemoglobin ABG Oxyhemoglobin Oxyhemoglobin Sodium Potassium Chloride Carbon Dioxide BUN Creatinine Glucose POC Glucose 127 H 115 H 143 H Lactic Acid Calcium Phosphorus Magnesium AST ALT Lactate Dehydrogenase CK-MB (CK-2) C-Reactive Protein NT-Pro-B Natriuret Pep Total Protein Albumin Urine WBC (Auto) 12/01/19 12/01/19 12/01/19 01:18 05:22 12:16 WBC RBC Hgb Hct MCHC RDW MCH Lymph % (Auto) [place] % (Auto) [place] # Eos # Lymph # (Auto) [place] # (Auto) Eos # (Auto) Seg Neutrophils % Seg Neuts % (Manual) Baso # (Auto) Lymphocytes % (Manual) Monocytes % (Manual) Eosinophils % (Manual) Basophils % (Manual) Seg Neutrophils # Seg Neutrophils # Man Lymphocytes # (Manual) Monocytes # (Manual) Eosinophils # (Manual) Nucleated RBC % Basophils # (Manual) APTT Heparin Anti-Xa Level ABG pH POC ABG pO2 ABG pO2 ABG HCO3 ABG O2 Saturation ABG Base Excess POC ABG pCO2 ABG Hemoglobin ABG Oxyhemoglobin Oxyhemoglobin Sodium Potassium 3.5 L Chloride 107.8 H Carbon Dioxide BUN 37 H Creatinine Glucose 157 H POC Glucose 118 H 148 H Lactic Acid Calcium 8.2 L D Phosphorus Magnesium AST 48 H ALT 60 H Lactate Dehydrogenase 194 H CK-MB (CK-2) C-Reactive Protein 8.50 H NT-Pro-B Natriuret Pep Total Protein 5.5 L Albumin 2.8 L Urine WBC (Auto) 12/01/19 12/02/19 12/02/19 18:04 00:05 05:16 WBC 11.4 H RBC Hgb Hct MCHC RDW 15.9 H MCH Lymph % (Auto) [place] % (Auto) 9.9 H [place] # 1.1 H Eos # Lymph # (Auto) [place] # (Auto) Eos # (Auto) Seg Neutrophils % 70.3 H Seg Neuts % (Manual) Baso # (Auto) Lymphocytes % (Manual) Monocytes % (Manual) Eosinophils % (Manual) Basophils % (Manual) Seg Neutrophils # 8.0 H Seg Neutrophils # Man Lymphocytes # (Manual) Monocytes # (Manual) Eosinophils # (Manual) Nucleated RBC % Basophils # (Manual) APTT Heparin Anti-Xa Level ABG pH POC ABG pO2 ABG pO2 ABG HCO3 ABG O2 Saturation ABG Base Excess POC ABG pCO2 ABG Hemoglobin ABG Oxyhemoglobin Oxyhemoglobin Sodium Potassium Chloride Carbon Dioxide BUN Creatinine Glucose POC Glucose 143 H 107 H Lactic Acid Calcium Phosphorus Magnesium AST ALT Lactate Dehydrogenase CK-MB (CK-2) C-Reactive Protein NT-Pro-B Natriuret Pep Total Protein Albumin Urine WBC (Auto) 12/02/19 12/02/19 12/02/19 05:16 06:03 11:52 WBC RBC Hgb Hct MCHC RDW MCH Lymph % (Auto) [place] % (Auto) [place] # Eos # Lymph # (Auto) [place] # (Auto) Eos # (Auto) Seg Neutrophils % Seg Neuts % (Manual) Baso # (Auto) Lymphocytes % (Manual) Monocytes % (Manual) Eosinophils % (Manual) Basophils % (Manual) Seg Neutrophils # Seg Neutrophils # Man Lymphocytes # (Manual) Monocytes # (Manual) Eosinophils # (Manual) Nucleated RBC % Basophils # (Manual) APTT Heparin Anti-Xa Level ABG pH POC ABG pO2 ABG pO2 ABG HCO3 ABG O2 Saturation ABG Base Excess POC ABG pCO2 ABG Hemoglobin ABG Oxyhemoglobin Oxyhemoglobin Sodium 146 H Potassium Chloride Carbon Dioxide BUN 28 H Creatinine Glucose 123 H POC Glucose 110 H 152 H Lactic Acid Calcium Phosphorus Magnesium AST ALT Lactate Dehydrogenase CK-MB (CK-2) C-Reactive Protein NT-Pro-B Natriuret Pep Total Protein Albumin Urine WBC (Auto) 12/02/19 12/02/19 12/02/19 12:58 17:58 23:36 WBC RBC Hgb Hct MCHC RDW MCH Lymph % (Auto) [place] % (Auto) [place] # Eos # Lymph # (Auto) [place] # (Auto) Eos # (Auto) Seg Neutrophils % Seg Neuts % (Manual) Baso # (Auto) Lymphocytes % (Manual) Monocytes % (Manual) Eosinophils % (Manual) Basophils % (Manual) Seg Neutrophils # Seg Neutrophils # Man Lymphocytes # (Manual) Monocytes # (Manual) Eosinophils # (Manual) Nucleated RBC % Basophils # (Manual) APTT Heparin Anti-Xa Level ABG pH POC ABG pO2 78.1 L ABG pO2 ABG HCO3 ABG O2 Saturation ABG Base Excess POC ABG pCO2 ABG Hemoglobin ABG Oxyhemoglobin Oxyhemoglobin Sodium Potassium Chloride Carbon Dioxide BUN Creatinine Glucose POC Glucose 120 H 123 H Lactic Acid Calcium Phosphorus Magnesium AST ALT Lactate Dehydrogenase CK-MB (CK-2) C-Reactive Protein NT-Pro-B Natriuret Pep Total Protein Albumin Urine WBC (Auto) 12/03/19 12/03/19 12/03/19 06:03 06:14 11:46 WBC RBC Hgb Hct MCHC RDW MCH Lymph % (Auto) [place] % (Auto) [place] # Eos # Lymph # (Auto) [place] # (Auto) Eos # (Auto) Seg Neutrophils % Seg Neuts % (Manual) Baso # (Auto) Lymphocytes % (Manual) Monocytes % (Manual) Eosinophils % (Manual) Basophils % (Manual) Seg Neutrophils # Seg Neutrophils # Man Lymphocytes # (Manual) Monocytes # (Manual) Eosinophils # (Manual) Nucleated RBC % Basophils # (Manual) APTT Heparin Anti-Xa Level ABG pH POC ABG pO2 ABG pO2 ABG HCO3 ABG O2 Saturation ABG Base Excess POC ABG pCO2 ABG Hemoglobin ABG Oxyhemoglobin Oxyhemoglobin Sodium Potassium Chloride Carbon Dioxide BUN Creatinine Glucose POC Glucose 142 H 130 H Lactic Acid Calcium Phosphorus Magnesium AST ALT Lactate Dehydrogenase CK-MB (CK-2) C-Reactive Protein NT-Pro-B Natriuret Pep Total Protein Albumin Urine WBC (Auto) 8.0 H 12/03/19 12/03/19 12/04/19 15:50 17:39 00:04 WBC RBC Hgb Hct MCHC RDW MCH Lymph % (Auto) [place] % (Auto) [place] # Eos # Lymph # (Auto) [place] # (Auto) Eos # (Auto) Seg Neutrophils % Seg Neuts % (Manual) Baso # (Auto) Lymphocytes % (Manual) Monocytes % (Manual) Eosinophils % (Manual) Basophils % (Manual) Seg Neutrophils # Seg Neutrophils # Man Lymphocytes # (Manual) Monocytes # (Manual) Eosinophils # (Manual) Nucleated RBC % Basophils # (Manual) APTT Heparin Anti-Xa Level ABG pH POC ABG pO2 ABG pO2 ABG HCO3 ABG O2 Saturation ABG Base Excess POC ABG pCO2 ABG Hemoglobin ABG Oxyhemoglobin Oxyhemoglobin Sodium Potassium Chloride Carbon Dioxide BUN Creatinine Glucose POC Glucose 146 H 133 H Lactic Acid Calcium Phosphorus 2.40 L Magnesium AST ALT Lactate Dehydrogenase CK-MB (CK-2) C-Reactive Protein NT-Pro-B Natriuret Pep Total Protein Albumin Urine WBC (Auto) 12/04/19 12/04/19 12/04/19 03:58 03:58 05:22 WBC 12.5 H RBC Hgb 11.2 L Hct 35.2 L MCHC RDW 16.0 H MCH Lymph % (Auto) [place] % (Auto) 9.6 H [place] # 1.2 H Eos # 0.5 H Lymph # (Auto) [place] # (Auto) Eos # (Auto) Seg Neutrophils % Seg Neuts % (Manual) Baso # (Auto) Lymphocytes % (Manual) Monocytes % (Manual) Eosinophils % (Manual) Basophils % (Manual) Seg Neutrophils # 8.6 H Seg Neutrophils # Man Lymphocytes # (Manual) Monocytes # (Manual) Eosinophils # (Manual) Nucleated RBC % Basophils # (Manual) APTT Heparin Anti-Xa Level ABG pH POC ABG pO2 ABG pO2 ABG HCO3 ABG O2 Saturation ABG Base Excess POC ABG pCO2 ABG Hemoglobin ABG Oxyhemoglobin Oxyhemoglobin Sodium 146 H Potassium Chloride 108.6 H Carbon Dioxide BUN 30 H Creatinine 0.7 L Glucose 121 H POC Glucose 132 H Lactic Acid Calcium Phosphorus Magnesium AST ALT Lactate Dehydrogenase CK-MB (CK-2) C-Reactive Protein NT-Pro-B Natriuret Pep Total Protein Albumin Urine WBC (Auto) 12/04/19 12/04/19 12/05/19 13:26 18:43 00:19 WBC RBC Hgb Hct MCHC RDW MCH Lymph % (Auto) [place] % (Auto) [place] # Eos # Lymph # (Auto) [place] # (Auto) Eos # (Auto) Seg Neutrophils % Seg Neuts % (Manual) Baso # (Auto) Lymphocytes % (Manual) Monocytes % (Manual) Eosinophils % (Manual) Basophils % (Manual) Seg Neutrophils # Seg Neutrophils # Man Lymphocytes # (Manual) Monocytes # (Manual) Eosinophils # (Manual) Nucleated RBC % Basophils # (Manual) APTT Heparin Anti-Xa Level ABG pH POC ABG pO2 ABG pO2 ABG HCO3 ABG O2 Saturation ABG Base Excess POC ABG pCO2 ABG Hemoglobin ABG Oxyhemoglobin Oxyhemoglobin Sodium Potassium Chloride Carbon Dioxide BUN Creatinine Glucose POC Glucose 185 H 156 H 150 H Lactic Acid Calcium Phosphorus Magnesium AST ALT Lactate Dehydrogenase CK-MB (CK-2) C-Reactive Protein NT-Pro-B Natriuret Pep Total Protein Albumin Urine WBC (Auto) 12/05/19 12/05/19 12/05/19 03:37 03:37 05:14 WBC 16.3 H RBC Hgb 11.4 L Hct MCHC RDW 15.6 H MCH Lymph % (Auto) 9.9 L [place] % (Auto) 9.7 H [place] # 1.6 H Eos # Lymph # (Auto) [place] # (Auto) Eos # (Auto) Seg Neutrophils % 78.0 H Seg Neuts % (Manual) Baso # (Auto) Lymphocytes % (Manual) Monocytes % (Manual) Eosinophils % (Manual) Basophils % (Manual) Seg Neutrophils # 12.7 H Seg Neutrophils # Man Lymphocytes # (Manual) Monocytes # (Manual) Eosinophils # (Manual) Nucleated RBC % Basophils # (Manual) APTT Heparin Anti-Xa Level ABG pH POC ABG pO2 ABG pO2 ABG HCO3 ABG O2 Saturation ABG Base Excess POC ABG pCO2 ABG Hemoglobin ABG Oxyhemoglobin Oxyhemoglobin Sodium 146 H Potassium Chloride 107.2 H Carbon Dioxide BUN 27 H Creatinine 0.7 L Glucose 171 H POC Glucose 168 H Lactic Acid Calcium Phosphorus Magnesium AST ALT Lactate Dehydrogenase CK-MB (CK-2) C-Reactive Protein NT-Pro-B Natriuret Pep Total Protein Albumin Urine WBC (Auto) 12/05/19 12/05/19 12/05/19 12:31 18:10 23:58 WBC RBC Hgb Hct MCHC RDW MCH Lymph % (Auto) [place] % (Auto) [place] # Eos # Lymph # (Auto) [place] # (Auto) Eos # (Auto) Seg Neutrophils % Seg Neuts % (Manual) Baso # (Auto) Lymphocytes % (Manual) Monocytes % (Manual) Eosinophils % (Manual) Basophils % (Manual) Seg Neutrophils # Seg Neutrophils # Man Lymphocytes # (Manual) Monocytes # (Manual) Eosinophils # (Manual) Nucleated RBC % Basophils # (Manual) APTT Heparin Anti-Xa Level ABG pH POC ABG pO2 ABG pO2 ABG HCO3 ABG O2 Saturation ABG Base Excess POC ABG pCO2 ABG Hemoglobin ABG Oxyhemoglobin Oxyhemoglobin Sodium Potassium Chloride Carbon Dioxide BUN Creatinine Glucose POC Glucose 159 H 198 H 115 H Lactic Acid Calcium Phosphorus Magnesium AST ALT Lactate Dehydrogenase CK-MB (CK-2) C-Reactive Protein NT-Pro-B Natriuret Pep Total Protein Albumin Urine WBC (Auto) 12/06/19 12/06/19 12/06/19 05:24 05:24 05:25 WBC 14.9 H RBC Hgb 10.8 L Hct 34.0 L MCHC RDW 15.6 H MCH Lymph % (Auto) 10.7 L [place] % (Auto) 8.3 H [place] # 1.2 H Eos # Lymph # (Auto) [place] # (Auto) Eos # (Auto) Seg Neutrophils % 78.7 H Seg Neuts % (Manual) Baso # (Auto) Lymphocytes % (Manual) Monocytes % (Manual) Eosinophils % (Manual) Basophils % (Manual) Seg Neutrophils # 11.7 H Seg Neutrophils # Man Lymphocytes # (Manual) Monocytes # (Manual) Eosinophils # (Manual) Nucleated RBC % Basophils # (Manual) APTT Heparin Anti-Xa Level ABG pH POC ABG pO2 ABG pO2 ABG HCO3 ABG O2 Saturation ABG Base Excess POC ABG pCO2 ABG Hemoglobin ABG Oxyhemoglobin Oxyhemoglobin Sodium 148 H Potassium 5.1 H Chloride 107.6 H Carbon Dioxide BUN 27 H Creatinine 0.7 L Glucose 155 H POC Glucose 157 H Lactic Acid Calcium Phosphorus Magnesium AST ALT Lactate Dehydrogenase CK-MB (CK-2) C-Reactive Protein NT-Pro-B Natriuret Pep Total Protein Albumin Urine WBC (Auto) 12/07/19 12/07/19 12/07/19 00:13 05:34 11:33 WBC RBC Hgb Hct MCHC RDW MCH Lymph % (Auto) [place] % (Auto) [place] # Eos # Lymph # (Auto) [place] # (Auto) Eos # (Auto) Seg Neutrophils % Seg Neuts % (Manual) Baso # (Auto) Lymphocytes % (Manual) Monocytes % (Manual) Eosinophils % (Manual) Basophils % (Manual) Seg Neutrophils # Seg Neutrophils # Man Lymphocytes # (Manual) Monocytes # (Manual) Eosinophils # (Manual) Nucleated RBC % Basophils # (Manual) APTT Heparin Anti-Xa Level ABG pH POC ABG pO2 ABG pO2 ABG HCO3 ABG O2 Saturation ABG Base Excess POC ABG pCO2 ABG Hemoglobin ABG Oxyhemoglobin Oxyhemoglobin Sodium Potassium Chloride Carbon Dioxide BUN Creatinine Glucose POC Glucose 142 H 111 H 169 H Lactic Acid Calcium Phosphorus Magnesium AST ALT Lactate Dehydrogenase CK-MB (CK-2) C-Reactive Protein NT-Pro-B Natriuret Pep Total Protein Albumin Urine WBC (Auto) 12/07/19 12/07/19 12/07/19 12:41 13:25 18:19 WBC 12.4 H RBC 3.53 L Hgb 10.2 L Hct 32.1 L MCHC RDW 15.3 H MCH Lymph % (Auto) 10.6 L [place] % (Auto) 7.8 H [place] # 1.0 H Eos # Lymph # (Auto) [place] # (Auto) Eos # (Auto) Seg Neutrophils % 77.6 H Seg Neuts % (Manual) Baso # (Auto) Lymphocytes % (Manual) Monocytes % (Manual) Eosinophils % (Manual) Basophils % (Manual) Seg Neutrophils # 9.6 H Seg Neutrophils # Man Lymphocytes # (Manual) Monocytes # (Manual) Eosinophils # (Manual) Nucleated RBC % Basophils # (Manual) APTT Heparin Anti-Xa Level ABG pH POC ABG pO2 ABG pO2 ABG HCO3 ABG O2 Saturation ABG Base Excess POC ABG pCO2 ABG Hemoglobin ABG Oxyhemoglobin Oxyhemoglobin Sodium 149 H Potassium Chloride 108.4 H Carbon Dioxide BUN 26 H Creatinine 0.6 L Glucose 149 H POC Glucose 164 H Lactic Acid Calcium Phosphorus Magnesium 2.60 H AST 121 H ALT 145 H Lactate Dehydrogenase CK-MB (CK-2) C-Reactive Protein NT-Pro-B Natriuret Pep Total Protein Albumin 2.6 L Urine WBC (Auto) 12/07/19 12/08/19 12/08/19 22:25 00:02 03:55 WBC 13.3 H RBC 3.40 L Hgb 9.7 L Hct 30.8 L MCHC 31 L RDW 15.5 H MCH Lymph % (Auto) [place] % (Auto) 8.1 H [place] # 1.1 H Eos # Lymph # (Auto) [place] # (Auto) Eos # (Auto) Seg Neutrophils % 73.0 H Seg Neuts % (Manual) Baso # (Auto) Lymphocytes % (Manual) Monocytes % (Manual) Eosinophils % (Manual) Basophils % (Manual) Seg Neutrophils # 9.7 H Seg Neutrophils # Man Lymphocytes # (Manual) Monocytes # (Manual) Eosinophils # (Manual) Nucleated RBC % Basophils # (Manual) APTT Heparin Anti-Xa Level 0.12 L ABG pH POC ABG pO2 ABG pO2 ABG HCO3 ABG O2 Saturation ABG Base Excess POC ABG pCO2 ABG Hemoglobin ABG Oxyhemoglobin Oxyhemoglobin Sodium Potassium Chloride Carbon Dioxide BUN Creatinine Glucose POC Glucose 151 H Lactic Acid Calcium Phosphorus Magnesium AST ALT Lactate Dehydrogenase CK-MB (CK-2) C-Reactive Protein NT-Pro-B Natriuret Pep Total Protein Albumin Urine WBC (Auto) 12/08/19 12/08/19 12/08/19 03:55 05:21 06:01 WBC RBC Hgb Hct MCHC RDW MCH Lymph % (Auto) [place] % (Auto) [place] # Eos # Lymph # (Auto) [place] # (Auto) Eos # (Auto) Seg Neutrophils % Seg Neuts % (Manual) Baso # (Auto) Lymphocytes % (Manual) Monocytes % (Manual) Eosinophils % (Manual) Basophils % (Manual) Seg Neutrophils # Seg Neutrophils # Man Lymphocytes # (Manual) Monocytes # (Manual) Eosinophils # (Manual) Nucleated RBC % Basophils # (Manual) APTT Heparin Anti-Xa Level 0.20 L ABG pH POC ABG pO2 ABG pO2 ABG HCO3 ABG O2 Saturation ABG Base Excess POC ABG pCO2 ABG Hemoglobin ABG Oxyhemoglobin Oxyhemoglobin Sodium 149 H Potassium Chloride 108.0 H Carbon Dioxide BUN 28 H Creatinine 0.6 L Glucose 144 H POC Glucose 143 H Lactic Acid Calcium Phosphorus Magnesium AST 98 H ALT 145 H Lactate Dehydrogenase CK-MB (CK-2) C-Reactive Protein NT-Pro-B Natriuret Pep Total Protein 6.0 L Albumin 2.4 L Urine WBC (Auto) 12/08/19 12/08/19 12/08/19 12:08 18:11 23:53 WBC RBC Hgb Hct MCHC RDW MCH Lymph % (Auto) [place] % (Auto) [place] # Eos # Lymph # (Auto) [place] # (Auto) Eos # (Auto) Seg Neutrophils % Seg Neuts % (Manual) Baso # (Auto) Lymphocytes % (Manual) Monocytes % (Manual) Eosinophils % (Manual) Basophils % (Manual) Seg Neutrophils # Seg Neutrophils # Man Lymphocytes # (Manual) Monocytes # (Manual) Eosinophils # (Manual) Nucleated RBC % Basophils # (Manual) APTT Heparin Anti-Xa Level ABG pH POC ABG pO2 ABG pO2 ABG HCO3 ABG O2 Saturation ABG Base Excess POC ABG pCO2 ABG Hemoglobin ABG Oxyhemoglobin Oxyhemoglobin Sodium Potassium Chloride Carbon Dioxide BUN Creatinine Glucose POC Glucose 172 H 122 H 162 H Lactic Acid Calcium Phosphorus Magnesium AST ALT Lactate Dehydrogenase CK-MB (CK-2) C-Reactive Protein NT-Pro-B Natriuret Pep Total Protein Albumin Urine WBC (Auto) 12/09/19 12/09/19 12/09/19 04:03 04:03 05:53 WBC RBC Hgb 9.1 L Hct 28.9 L MCHC RDW MCH Lymph % (Auto) [place] % (Auto) [place] # Eos # Lymph # (Auto) [place] # (Auto) Eos # (Auto) Seg Neutrophils % Seg Neuts % (Manual) Baso # (Auto) Lymphocytes % (Manual) Monocytes % (Manual) Eosinophils % (Manual) Basophils % (Manual) Seg Neutrophils # Seg Neutrophils # Man Lymphocytes # (Manual) Monocytes # (Manual) Eosinophils # (Manual) Nucleated RBC % Basophils # (Manual) APTT Heparin Anti-Xa Level 0.15 L ABG pH POC ABG pO2 ABG pO2 ABG HCO3 ABG O2 Saturation ABG Base Excess POC ABG pCO2 ABG Hemoglobin ABG Oxyhemoglobin Oxyhemoglobin Sodium Potassium Chloride Carbon Dioxide BUN Creatinine Glucose POC Glucose 124 H Lactic Acid Calcium Phosphorus Magnesium AST ALT Lactate Dehydrogenase CK-MB (CK-2) C-Reactive Protein NT-Pro-B Natriuret Pep Total Protein Albumin Urine WBC (Auto) 12/09/19 12/09/19 12/10/19 09:43 12:41 00:13 WBC RBC Hgb Hct MCHC RDW MCH Lymph % (Auto) [place] % (Auto) [place] # Eos # Lymph # (Auto) [place] # (Auto) Eos # (Auto) Seg Neutrophils % Seg Neuts % (Manual) Baso # (Auto) Lymphocytes % (Manual) Monocytes % (Manual) Eosinophils % (Manual) Basophils % (Manual) Seg Neutrophils # Seg Neutrophils # Man Lymphocytes # (Manual) Monocytes # (Manual) Eosinophils # (Manual) Nucleated RBC % Basophils # (Manual) APTT Heparin Anti-Xa Level ABG pH POC ABG pO2 ABG pO2 ABG HCO3 ABG O2 Saturation ABG Base Excess POC ABG pCO2 ABG Hemoglobin ABG Oxyhemoglobin Oxyhemoglobin Sodium Potassium Chloride Carbon Dioxide BUN 25 H Creatinine 0.6 L Glucose 131 H POC Glucose 109 H 120 H Lactic Acid Calcium Phosphorus Magnesium AST ALT Lactate Dehydrogenase CK-MB (CK-2) C-Reactive Protein NT-Pro-B Natriuret Pep Total Protein Albumin Urine WBC (Auto) 12/10/19 12/10/19 12/10/19 04:14 04:14 12:00 WBC 13.3 H RBC 3.34 L Hgb 9.6 L Hct 30.4 L MCHC RDW 15.4 H MCH Lymph % (Auto) [place] % (Auto) [place] # Eos # Lymph # (Auto) [place] # (Auto) Eos # (Auto) Seg Neutrophils % Seg Neuts % (Manual) 75.0 H Baso # (Auto) Lymphocytes % (Manual) 13.0 L Monocytes % (Manual) 8.0 H Eosinophils % (Manual) Basophils % (Manual) 2.0 H Seg Neutrophils # Seg Neutrophils # Man 10.0 H Lymphocytes # (Manual) Monocytes # (Manual) 1.1 H Eosinophils # (Manual) Nucleated RBC % Basophils # (Manual) 0.3 H APTT Heparin Anti-Xa Level ABG pH POC ABG pO2 ABG pO2 ABG HCO3 ABG O2 Saturation ABG Base Excess POC ABG pCO2 ABG Hemoglobin ABG Oxyhemoglobin Oxyhemoglobin Sodium 147 H Potassium Chloride 108.3 H Carbon Dioxide BUN 21 H Creatinine 0.6 L Glucose 104 H POC Glucose 133 H Lactic Acid Calcium Phosphorus Magnesium AST ALT Lactate Dehydrogenase CK-MB (CK-2) C-Reactive Protein NT-Pro-B Natriuret Pep Total Protein Albumin Urine WBC (Auto) 12/10/19 12/10/19 12/11/19 18:44 21:20 00:08 WBC 14.9 H RBC 3.36 L Hgb 9.6 L Hct 30.5 L MCHC RDW 15.4 H MCH Lymph % (Auto) [place] % (Auto) [place] # Eos # Lymph # (Auto) [place] # (Auto) Eos # (Auto) Seg Neutrophils % Seg Neuts % (Manual) Baso # (Auto) Lymphocytes % (Manual) Monocytes % (Manual) Eosinophils % (Manual) Basophils % (Manual) Seg Neutrophils # Seg Neutrophils # Man Lymphocytes # (Manual) Monocytes # (Manual) Eosinophils # (Manual) Nucleated RBC % Basophils # (Manual) APTT Heparin Anti-Xa Level ABG pH POC ABG pO2 ABG pO2 ABG HCO3 ABG O2 Saturation ABG Base Excess POC ABG pCO2 ABG Hemoglobin ABG Oxyhemoglobin Oxyhemoglobin Sodium Potassium Chloride Carbon Dioxide BUN Creatinine Glucose POC Glucose 119 H 134 H Lactic Acid Calcium Phosphorus Magnesium AST ALT Lactate Dehydrogenase CK-MB (CK-2) C-Reactive Protein NT-Pro-B Natriuret Pep Total Protein Albumin Urine WBC (Auto) 12/11/19 12/11/19 12/11/19 03:54 07:28 08:36 WBC 11.9 H RBC 3.25 L Hgb 9.6 L Hct 29.2 L MCHC RDW 15.7 H MCH Lymph % (Auto) [place] % (Auto) [place] # Eos # Lymph # (Auto) [place] # (Auto) Eos # (Auto) Seg Neutrophils % Seg Neuts % (Manual) Baso # (Auto) Lymphocytes % (Manual) Monocytes % (Manual) Eosinophils % (Manual) Basophils % (Manual) Seg Neutrophils # Seg Neutrophils # Man Lymphocytes # (Manual) Monocytes # (Manual) Eosinophils # (Manual) Nucleated RBC % Basophils # (Manual) APTT Heparin Anti-Xa Level 0.10 L 0.16 L ABG pH POC ABG pO2 ABG pO2 ABG HCO3 ABG O2 Saturation ABG Base Excess POC ABG pCO2 ABG Hemoglobin ABG Oxyhemoglobin Oxyhemoglobin Sodium Potassium Chloride Carbon Dioxide BUN Creatinine Glucose POC Glucose Lactic Acid Calcium Phosphorus Magnesium AST ALT Lactate Dehydrogenase CK-MB (CK-2) C-Reactive Protein NT-Pro-B Natriuret Pep Total Protein Albumin Urine WBC (Auto) 12/11/19 12/11/19 12/11/19 08:36 11:45 17:15 WBC RBC Hgb Hct MCHC RDW MCH Lymph % (Auto) [place] % (Auto) [place] # Eos # Lymph # (Auto) [place] # (Auto) Eos # (Auto) Seg Neutrophils % Seg Neuts % (Manual) Baso # (Auto) Lymphocytes % (Manual) Monocytes % (Manual) Eosinophils % (Manual) Basophils % (Manual) Seg Neutrophils # Seg Neutrophils # Man Lymphocytes # (Manual) Monocytes # (Manual) Eosinophils # (Manual) Nucleated RBC % Basophils # (Manual) APTT Heparin Anti-Xa Level ABG pH POC ABG pO2 ABG pO2 ABG HCO3 ABG O2 Saturation ABG Base Excess POC ABG pCO2 ABG Hemoglobin ABG Oxyhemoglobin Oxyhemoglobin Sodium Potassium Chloride Carbon Dioxide BUN Creatinine 0.5 L Glucose 128 H POC Glucose 136 H 109 H Lactic Acid Calcium Phosphorus Magnesium AST ALT Lactate Dehydrogenase CK-MB (CK-2) C-Reactive Protein NT-Pro-B Natriuret Pep Total Protein Albumin Urine WBC (Auto) 12/12/19 12/12/19 12/12/19 00:03 05:53 05:53 WBC RBC Hgb 8.8 L Hct 27.6 L MCHC RDW MCH Lymph % (Auto) [place] % (Auto) [place] # Eos # Lymph # (Auto) [place] # (Auto) Eos # (Auto) Seg Neutrophils % Seg Neuts % (Manual) Baso # (Auto) Lymphocytes % (Manual) Monocytes % (Manual) Eosinophils % (Manual) Basophils % (Manual) Seg Neutrophils # Seg Neutrophils # Man Lymphocytes # (Manual) Monocytes # (Manual) Eosinophils # (Manual) Nucleated RBC % Basophils # (Manual) APTT Heparin Anti-Xa Level 0.22 L ABG pH POC ABG pO2 ABG pO2 ABG HCO3 ABG O2 Saturation ABG Base Excess POC ABG pCO2 ABG Hemoglobin ABG Oxyhemoglobin Oxyhemoglobin Sodium Potassium Chloride Carbon Dioxide BUN Creatinine Glucose POC Glucose 116 H Lactic Acid Calcium Phosphorus Magnesium AST ALT Lactate Dehydrogenase CK-MB (CK-2) C-Reactive Protein NT-Pro-B Natriuret Pep Total Protein Albumin Urine WBC (Auto) 12/12/19 12/12/19 12/12/19 09:38 12:18 17:44 WBC RBC Hgb Hct MCHC RDW MCH Lymph % (Auto) [place] % (Auto) [place] # Eos # Lymph # (Auto) [place] # (Auto) Eos # (Auto) Seg Neutrophils % Seg Neuts % (Manual) Baso # (Auto) Lymphocytes % (Manual) Monocytes % (Manual) Eosinophils % (Manual) Basophils % (Manual) Seg Neutrophils # Seg Neutrophils # Man Lymphocytes # (Manual) Monocytes # (Manual) Eosinophils # (Manual) Nucleated RBC % Basophils # (Manual) APTT Heparin Anti-Xa Level ABG pH POC ABG pO2 ABG pO2 ABG HCO3 ABG O2 Saturation ABG Base Excess POC ABG pCO2 ABG Hemoglobin ABG Oxyhemoglobin Oxyhemoglobin Sodium Potassium Chloride Carbon Dioxide BUN Creatinine Glucose POC Glucose 115 H 146 H 146 H Lactic Acid Calcium Phosphorus Magnesium AST ALT Lactate Dehydrogenase CK-MB (CK-2) C-Reactive Protein NT-Pro-B Natriuret Pep Total Protein Albumin Urine WBC (Auto) 12/12/19 12/13/19 12/13/19 23:33 05:32 05:32 WBC 13.1 H RBC 3.27 L Hgb 9.5 L Hct 29.3 L MCHC RDW 15.6 H MCH Lymph % (Auto) [place] % (Auto) [place] # Eos # Lymph # (Auto) [place] # (Auto) Eos # (Auto) Seg Neutrophils % Seg Neuts % (Manual) 74.0 H Baso # (Auto) Lymphocytes % (Manual) 8.0 L Monocytes % (Manual) 9.0 H Eosinophils % (Manual) 5.0 H Basophils % (Manual) Seg Neutrophils # Seg Neutrophils # Man 9.7 H Lymphocytes # (Manual) 1.0 L Monocytes # (Manual) 1.2 H Eosinophils # (Manual) 0.7 H Nucleated RBC % Basophils # (Manual) APTT Heparin Anti-Xa Level 0.20 L ABG pH POC ABG pO2 ABG pO2 ABG HCO3 ABG O2 Saturation ABG Base Excess POC ABG pCO2 ABG Hemoglobin ABG Oxyhemoglobin Oxyhemoglobin Sodium Potassium Chloride Carbon Dioxide BUN Creatinine Glucose POC Glucose 126 H Lactic Acid Calcium Phosphorus Magnesium AST ALT Lactate Dehydrogenase CK-MB (CK-2) C-Reactive Protein NT-Pro-B Natriuret Pep Total Protein Albumin Urine WBC (Auto) 12/13/19 12/13/19 12/13/19 05:32 05:46 11:57 WBC RBC Hgb Hct MCHC RDW MCH Lymph % (Auto) [place] % (Auto) [place] # Eos # Lymph # (Auto) [place] # (Auto) Eos # (Auto) Seg Neutrophils % Seg Neuts % (Manual) Baso # (Auto) Lymphocytes % (Manual) Monocytes % (Manual) Eosinophils % (Manual) Basophils % (Manual) Seg Neutrophils # Seg Neutrophils # Man Lymphocytes # (Manual) Monocytes # (Manual) Eosinophils # (Manual) Nucleated RBC % Basophils # (Manual) APTT Heparin Anti-Xa Level ABG pH POC ABG pO2 ABG pO2 ABG HCO3 ABG O2 Saturation ABG Base Excess POC ABG pCO2 ABG Hemoglobin ABG Oxyhemoglobin Oxyhemoglobin Sodium Potassium Chloride Carbon Dioxide 31 H BUN Creatinine 0.6 L Glucose 114 H POC Glucose 118 H 133 H Lactic Acid Calcium Phosphorus Magnesium AST ALT Lactate Dehydrogenase CK-MB (CK-2) C-Reactive Protein NT-Pro-B Natriuret Pep Total Protein Albumin Urine WBC (Auto) 12/13/19 12/13/19 12/14/19 17:44 23:46 05:32 WBC RBC Hgb Hct MCHC RDW MCH Lymph % (Auto) [place] % (Auto) [place] # Eos # Lymph # (Auto) [place] # (Auto) Eos # (Auto) Seg Neutrophils % Seg Neuts % (Manual) Baso # (Auto) Lymphocytes % (Manual) Monocytes % (Manual) Eosinophils % (Manual) Basophils % (Manual) Seg Neutrophils # Seg Neutrophils # Man Lymphocytes # (Manual) Monocytes # (Manual) Eosinophils # (Manual) Nucleated RBC % Basophils # (Manual) APTT Heparin Anti-Xa Level ABG pH POC ABG pO2 ABG pO2 ABG HCO3 ABG O2 Saturation ABG Base Excess POC ABG pCO2 ABG Hemoglobin ABG Oxyhemoglobin Oxyhemoglobin Sodium Potassium Chloride Carbon Dioxide BUN Creatinine Glucose POC Glucose 161 H 126 H 139 H Lactic Acid Calcium Phosphorus Magnesium AST ALT Lactate Dehydrogenase CK-MB (CK-2) C-Reactive Protein NT-Pro-B Natriuret Pep Total Protein Albumin Urine WBC (Auto) 12/14/19 12/14/19 12/14/19 06:03 06:03 09:37 WBC RBC Hgb 9.6 L Hct 30.4 L MCHC RDW MCH Lymph % (Auto) [place] % (Auto) [place] # Eos # Lymph # (Auto) [place] # (Auto) Eos # (Auto) Seg Neutrophils % Seg Neuts % (Manual) Baso # (Auto) Lymphocytes % (Manual) Monocytes % (Manual) Eosinophils % (Manual) Basophils % (Manual) Seg Neutrophils # Seg Neutrophils # Man Lymphocytes # (Manual) Monocytes # (Manual) Eosinophils # (Manual) Nucleated RBC % Basophils # (Manual) APTT Heparin Anti-Xa Level 0.24 L ABG pH POC ABG pO2 ABG pO2 ABG HCO3 ABG O2 Saturation ABG Base Excess POC ABG pCO2 ABG Hemoglobin ABG Oxyhemoglobin Oxyhemoglobin Sodium Potassium Chloride Carbon Dioxide BUN Creatinine 0.6 L Glucose 162 H POC Glucose Lactic Acid Calcium Phosphorus Magnesium AST 71 H ALT 118 H Lactate Dehydrogenase CK-MB (CK-2) C-Reactive Protein NT-Pro-B Natriuret Pep Total Protein 6.2 L Albumin 2.3 L Urine WBC (Auto) 12/14/19 12/14/19 12/15/19 12:06 18:18 00:19 WBC RBC Hgb Hct MCHC RDW MCH Lymph % (Auto) [place] % (Auto) [place] # Eos # Lymph # (Auto) [place] # (Auto) Eos # (Auto) Seg Neutrophils % Seg Neuts % (Manual) Baso # (Auto) Lymphocytes % (Manual) Monocytes % (Manual) Eosinophils % (Manual) Basophils % (Manual) Seg Neutrophils # Seg Neutrophils # Man Lymphocytes # (Manual) Monocytes # (Manual) Eosinophils # (Manual) Nucleated RBC % Basophils # (Manual) APTT Heparin Anti-Xa Level ABG pH POC ABG pO2 ABG pO2 ABG HCO3 ABG O2 Saturation ABG Base Excess POC ABG pCO2 ABG Hemoglobin ABG Oxyhemoglobin Oxyhemoglobin Sodium Potassium Chloride Carbon Dioxide BUN Creatinine Glucose POC Glucose 147 H 166 H 123 H Lactic Acid Calcium Phosphorus Magnesium AST ALT Lactate Dehydrogenase CK-MB (CK-2) C-Reactive Protein NT-Pro-B Natriuret Pep Total Protein Albumin Urine WBC (Auto) 12/15/19 12/15/19 12/15/19 05:28 05:29 05:29 WBC 14.9 H RBC 3.19 L Hgb 9.1 L Hct 28.7 L MCHC RDW 16.0 H MCH Lymph % (Auto) [place] % (Auto) [place] # Eos # Lymph # (Auto) [place] # (Auto) Eos # (Auto) Seg Neutrophils % Seg Neuts % (Manual) Baso # (Auto) Lymphocytes % (Manual) Monocytes % (Manual) Eosinophils % (Manual) Basophils % (Manual) Seg Neutrophils # Seg Neutrophils # Man Lymphocytes # (Manual) Monocytes # (Manual) Eosinophils # (Manual) Nucleated RBC % Basophils # (Manual) APTT Heparin Anti-Xa Level 0.19 L ABG pH POC ABG pO2 ABG pO2 ABG HCO3 ABG O2 Saturation ABG Base Excess POC ABG pCO2 ABG Hemoglobin ABG Oxyhemoglobin Oxyhemoglobin Sodium Potassium Chloride Carbon Dioxide BUN Creatinine 0.6 L Glucose 110 H POC Glucose Lactic Acid Calcium Phosphorus Magnesium AST ALT Lactate Dehydrogenase CK-MB (CK-2) C-Reactive Protein NT-Pro-B Natriuret Pep Total Protein Albumin Urine WBC (Auto) 12/15/19 12/15/19 12/15/19 05:53 11:50 17:26 WBC RBC Hgb Hct MCHC RDW MCH Lymph % (Auto) [place] % (Auto) [place] # Eos # Lymph # (Auto) [place] # (Auto) Eos # (Auto) Seg Neutrophils % Seg Neuts % (Manual) Baso # (Auto) Lymphocytes % (Manual) Monocytes % (Manual) Eosinophils % (Manual) Basophils % (Manual) Seg Neutrophils # Seg Neutrophils # Man Lymphocytes # (Manual) Monocytes # (Manual) Eosinophils # (Manual) Nucleated RBC % Basophils # (Manual) APTT Heparin Anti-Xa Level ABG pH POC ABG pO2 ABG pO2 ABG HCO3 ABG O2 Saturation ABG Base Excess POC ABG pCO2 ABG Hemoglobin ABG Oxyhemoglobin Oxyhemoglobin Sodium Potassium Chloride Carbon Dioxide BUN Creatinine Glucose POC Glucose 119 H 132 H 128 H Lactic Acid Calcium Phosphorus Magnesium AST ALT Lactate Dehydrogenase CK-MB (CK-2) C-Reactive Protein NT-Pro-B Natriuret Pep Total Protein Albumin Urine WBC (Auto) 12/15/19 12/16/19 12/16/19 23:11 05:30 05:46 WBC RBC Hgb 8.8 L Hct 27.9 L MCHC RDW MCH Lymph % (Auto) [place] % (Auto) [place] # Eos # Lymph # (Auto) [place] # (Auto) Eos # (Auto) Seg Neutrophils % Seg Neuts % (Manual) Baso # (Auto) Lymphocytes % (Manual) Monocytes % (Manual) Eosinophils % (Manual) Basophils % (Manual) Seg Neutrophils # Seg Neutrophils # Man Lymphocytes # (Manual) Monocytes # (Manual) Eosinophils # (Manual) Nucleated RBC % Basophils # (Manual) APTT Heparin Anti-Xa Level ABG pH POC ABG pO2 ABG pO2 ABG HCO3 ABG O2 Saturation ABG Base Excess POC ABG pCO2 ABG Hemoglobin ABG Oxyhemoglobin Oxyhemoglobin Sodium Potassium Chloride Carbon Dioxide BUN Creatinine Glucose POC Glucose 150 H 134 H Lactic Acid Calcium Phosphorus Magnesium AST ALT Lactate Dehydrogenase CK-MB (CK-2) C-Reactive Protein NT-Pro-B Natriuret Pep Total Protein Albumin Urine WBC (Auto) 12/16/19 12/16/19 12/16/19 05:46 05:46 11:44 WBC RBC Hgb Hct MCHC RDW MCH Lymph % (Auto) [place] % (Auto) [place] # Eos # Lymph # (Auto) [place] # (Auto) Eos # (Auto) Seg Neutrophils % Seg Neuts % (Manual) Baso # (Auto) Lymphocytes % (Manual) Monocytes % (Manual) Eosinophils % (Manual) Basophils % (Manual) Seg Neutrophils # Seg Neutrophils # Man Lymphocytes # (Manual) Monocytes # (Manual) Eosinophils # (Manual) Nucleated RBC % Basophils # (Manual) APTT Heparin Anti-Xa Level 0.20 L ABG pH POC ABG pO2 ABG pO2 ABG HCO3 ABG O2 Saturation ABG Base Excess POC ABG pCO2 ABG Hemoglobin ABG Oxyhemoglobin Oxyhemoglobin Sodium Potassium Chloride Carbon Dioxide 31 H BUN Creatinine 0.5 L Glucose 147 H POC Glucose 164 H Lactic Acid Calcium Phosphorus Magnesium AST ALT Lactate Dehydrogenase CK-MB (CK-2) C-Reactive Protein NT-Pro-B Natriuret Pep Total Protein Albumin Urine WBC (Auto) 12/16/19 12/16/19 12/17/19 17:17 23:49 05:30 WBC 13.9 H RBC 3.27 L Hgb 9.4 L Hct 29.2 L MCHC RDW 16.0 H MCH Lymph % (Auto) [place] % (Auto) 8.8 H [place] # Eos # Lymph # (Auto) [place] # (Auto) 1.2 H Eos # (Auto) 0.5 H Seg Neutrophils % 70.5 H Seg Neuts % (Manual) Baso # (Auto) 0.2 H Lymphocytes % (Manual) Monocytes % (Manual) Eosinophils % (Manual) Basophils % (Manual) Seg Neutrophils # 9.8 H Seg Neutrophils # Man Lymphocytes # (Manual) Monocytes # (Manual) Eosinophils # (Manual) Nucleated RBC % Basophils # (Manual) APTT Heparin Anti-Xa Level ABG pH POC ABG pO2 ABG pO2 ABG HCO3 ABG O2 Saturation ABG Base Excess POC ABG pCO2 ABG Hemoglobin ABG Oxyhemoglobin Oxyhemoglobin Sodium Potassium Chloride Carbon Dioxide BUN Creatinine Glucose POC Glucose 162 H 144 H Lactic Acid Calcium Phosphorus Magnesium AST ALT Lactate Dehydrogenase CK-MB (CK-2) C-Reactive Protein NT-Pro-B Natriuret Pep Total Protein Albumin Urine WBC (Auto) 12/17/19 12/17/1912/16/20 05:30 06:06 11:50 WBC RBC Hgb Hct MCHC RDW MCH Lymph % (Auto) [place] % (Auto) [place] # Eos # Lymph # (Auto) [place] # (Auto) Eos # (Auto) Seg Neutrophils % Seg Neuts % (Manual) Baso # (Auto) Lymphocytes % (Manual) Monocytes % (Manual) Eosinophils % (Manual) Basophils % (Manual) Seg Neutrophils # Seg Neutrophils # Man Lymphocytes # (Manual) Monocytes # (Manual) Eosinophils # (Manual) Nucleated RBC % Basophils # (Manual) APTT Heparin Anti-Xa Level ABG pH POC ABG pO2 ABG pO2 ABG HCO3 ABG O2 Saturation ABG Base Excess POC ABG pCO2 ABG Hemoglobin ABG Oxyhemoglobin Oxyhemoglobin Sodium Potassium Chloride 97.4 L Carbon Dioxide 32 H BUN Creatinine 0.5 L Glucose 135 H POC Glucose 151 H 140 H Lactic Acid Calcium Phosphorus Magnesium AST ALT Lactate Dehydrogenase CK-MB (CK-2) C-Reactive Protein NT-Pro-B Natriuret Pep Total Protein Albumin Urine WBC (Auto) 12/17/19 12/17/19 12/18/19 17:50 23:46 05:17 WBC RBC Hgb 8.8 L Hct 28.0 L MCHC RDW MCH Lymph % (Auto) [place] % (Auto) [place] # Eos # Lymph # (Auto) [place] # (Auto) Eos # (Auto) Seg Neutrophils % Seg Neuts % (Manual) Baso # (Auto) Lymphocytes % (Manual) Monocytes % (Manual) Eosinophils % (Manual) Basophils % (Manual) Seg Neutrophils # Seg Neutrophils # Man Lymphocytes # (Manual) Monocytes # (Manual) Eosinophils # (Manual) Nucleated RBC % Basophils # (Manual) APTT Heparin Anti-Xa Level ABG pH POC ABG pO2 ABG pO2 ABG HCO3 ABG O2 Saturation ABG Base Excess POC ABG pCO2 ABG Hemoglobin ABG Oxyhemoglobin Oxyhemoglobin Sodium Potassium Chloride Carbon Dioxide BUN Creatinine Glucose POC Glucose 158 H 150 H Lactic Acid Calcium Phosphorus Magnesium AST ALT Lactate Dehydrogenase CK-MB (CK-2) C-Reactive Protein NT-Pro-B Natriuret Pep Total Protein Albumin Urine WBC (Auto) 12/18/19 12/18/19 12/18/19 05:17 05:49 11:12 WBC RBC Hgb Hct MCHC RDW MCH Lymph % (Auto) [place] % (Auto) [place] # Eos # Lymph # (Auto) [place] # (Auto) Eos # (Auto) Seg Neutrophils % Seg Neuts % (Manual) Baso # (Auto) Lymphocytes % (Manual) Monocytes % (Manual) Eosinophils % (Manual) Basophils % (Manual) Seg Neutrophils # Seg Neutrophils # Man Lymphocytes # (Manual) Monocytes # (Manual) Eosinophils # (Manual) Nucleated RBC % Basophils # (Manual) APTT Heparin Anti-Xa Level 0.16 L ABG pH POC ABG pO2 ABG pO2 ABG HCO3 ABG O2 Saturation ABG Base Excess POC ABG pCO2 ABG Hemoglobin ABG Oxyhemoglobin Oxyhemoglobin Sodium Potassium Chloride Carbon Dioxide BUN Creatinine Glucose POC Glucose 127 H 191 H Lactic Acid Calcium Phosphorus Magnesium AST ALT Lactate Dehydrogenase CK-MB (CK-2) C-Reactive Protein NT-Pro-B Natriuret Pep Total Protein Albumin Urine WBC (Auto) 12/18/19 12/18/19 12/19/19 17:03 20:16 00:08 WBC RBC Hgb Hct MCHC RDW MCH Lymph % (Auto) [place] % (Auto) [place] # Eos # Lymph # (Auto) [place] # (Auto) Eos # (Auto) Seg Neutrophils % Seg Neuts % (Manual) Baso # (Auto) Lymphocytes % (Manual) Monocytes % (Manual) Eosinophils % (Manual) Basophils % (Manual) Seg Neutrophils # Seg Neutrophils # Man Lymphocytes # (Manual) Monocytes # (Manual) Eosinophils # (Manual) Nucleated RBC % Basophils # (Manual) APTT Heparin Anti-Xa Level ABG pH POC ABG pO2 ABG pO2 ABG HCO3 ABG O2 Saturation ABG Base Excess POC ABG pCO2 ABG Hemoglobin ABG Oxyhemoglobin Oxyhemoglobin Sodium Potassium Chloride Carbon Dioxide BUN Creatinine Glucose POC Glucose 133 H 128 H 129 H Lactic Acid Calcium Phosphorus Magnesium AST ALT Lactate Dehydrogenase CK-MB (CK-2) C-Reactive Protein NT-Pro-B Natriuret Pep Total Protein Albumin Urine WBC (Auto) 12/19/19 12/19/19 12/19/19 04:45 04:45 05:35 WBC RBC Hgb Hct MCHC RDW MCH Lymph % (Auto) [place] % (Auto) [place] # Eos # Lymph # (Auto) [place] # (Auto) Eos # (Auto) Seg Neutrophils % Seg Neuts % (Manual) Baso # (Auto) Lymphocytes % (Manual) Monocytes % (Manual) Eosinophils % (Manual) Basophils % (Manual) Seg Neutrophils # Seg Neutrophils # Man Lymphocytes # (Manual) Monocytes # (Manual) Eosinophils # (Manual) Nucleated RBC % Basophils # (Manual) APTT Heparin Anti-Xa Level 0.17 L ABG pH POC ABG pO2 ABG pO2 ABG HCO3 ABG O2 Saturation ABG Base Excess POC ABG pCO2 ABG Hemoglobin ABG Oxyhemoglobin Oxyhemoglobin Sodium Potassium Chloride Carbon Dioxide BUN Creatinine Glucose POC Glucose 120 H Lactic Acid Calcium Phosphorus Magnesium AST ALT Lactate Dehydrogenase 228 H CK-MB (CK-2) C-Reactive Protein NT-Pro-B Natriuret Pep Total Protein Albumin Urine WBC (Auto) 12/19/19 12/19/19 12/19/19 09:20 11:32 11:32 WBC 14.6 H RBC 3.08 L Hgb 9.0 L Hct 26.8 L MCHC RDW 15.9 H MCH Lymph % (Auto) [place] % (Auto) [place] # Eos # Lymph # (Auto) [place] # (Auto) Eos # (Auto) Seg Neutrophils % Seg Neuts % (Manual) 82.0 H Baso # (Auto) Lymphocytes % (Manual) 10.0 L Monocytes % (Manual) Eosinophils % (Manual) Basophils % (Manual) Seg Neutrophils # Seg Neutrophils # Man 12.0 H Lymphocytes # (Manual) Monocytes # (Manual) 0.9 H Eosinophils # (Manual) Nucleated RBC % 1.0 H Basophils # (Manual) APTT Heparin Anti-Xa Level ABG pH 7.451 H POC ABG pO2 ABG pO2 62.6 L ABG HCO3 33.2 H ABG O2 Saturation 93.8 L ABG Base Excess 8.3 H POC ABG pCO2 ABG Hemoglobin 8.3 L ABG Oxyhemoglobin Oxyhemoglobin 91.9 L Sodium Potassium Chloride 95.0 L Carbon Dioxide 33 H BUN 22 H Creatinine 0.6 L Glucose 150 H POC Glucose Lactic Acid Calcium Phosphorus Magnesium AST ALT Lactate Dehydrogenase CK-MB (CK-2) C-Reactive Protein NT-Pro-B Natriuret Pep Total Protein 6.2 L Albumin 2.4 L Urine WBC (Auto) 12/19/19 12/19/19 12/20/19 11:56 18:17 00:09 WBC RBC Hgb Hct MCHC RDW MCH Lymph % (Auto) [place] % (Auto) [place] # Eos # Lymph # (Auto) [place] # (Auto) Eos # (Auto) Seg Neutrophils % Seg Neuts % (Manual) Baso # (Auto) Lymphocytes % (Manual) Monocytes % (Manual) Eosinophils % (Manual) Basophils % (Manual) Seg Neutrophils # Seg Neutrophils # Man Lymphocytes # (Manual) Monocytes # (Manual) Eosinophils # (Manual) Nucleated RBC % Basophils # (Manual) APTT Heparin Anti-Xa Level ABG pH POC ABG pO2 ABG pO2 ABG HCO3 ABG O2 Saturation ABG Base Excess POC ABG pCO2 ABG Hemoglobin ABG Oxyhemoglobin Oxyhemoglobin Sodium Potassium Chloride Carbon Dioxide BUN Creatinine Glucose POC Glucose 156 H 156 H 155 H Lactic Acid Calcium Phosphorus Magnesium AST ALT Lactate Dehydrogenase CK-MB (CK-2) C-Reactive Protein NT-Pro-B Natriuret Pep Total Protein Albumin Urine WBC (Auto) 12/20/19 12/20/19 12/20/19 05:26 06:02 18:17 WBC RBC Hgb Hct MCHC RDW MCH Lymph % (Auto) [place] % (Auto) [place] # Eos # Lymph # (Auto) [place] # (Auto) Eos # (Auto) Seg Neutrophils % Seg Neuts % (Manual) Baso # (Auto) Lymphocytes % (Manual) Monocytes % (Manual) Eosinophils % (Manual) Basophils % (Manual) Seg Neutrophils # Seg Neutrophils # Man Lymphocytes # (Manual) Monocytes # (Manual) Eosinophils # (Manual) Nucleated RBC % Basophils # (Manual) APTT Heparin Anti-Xa Level 0.19 L ABG pH POC ABG pO2 ABG pO2 ABG HCO3 ABG O2 Saturation ABG Base Excess POC ABG pCO2 ABG Hemoglobin ABG Oxyhemoglobin Oxyhemoglobin Sodium Potassium Chloride Carbon Dioxide BUN Creatinine Glucose POC Glucose 137 H 128 H Lactic Acid Calcium Phosphorus Magnesium AST ALT Lactate Dehydrogenase CK-MB (CK-2) C-Reactive Protein NT-Pro-B Natriuret Pep Total Protein Albumin Urine WBC (Auto) 12/20/19 12/21/19 12/21/19 23:34 05:31 05:31 WBC 12.7 H RBC 3.09 L Hgb 8.9 L Hct 27.4 L MCHC RDW 15.8 H MCH Lymph % (Auto) 12.1 L [place] % (Auto) 7.8 H [place] # Eos # Lymph # (Auto) [place] # (Auto) 1.0 H Eos # (Auto) Seg Neutrophils % 77.1 H Seg Neuts % (Manual) Baso # (Auto) Lymphocytes % (Manual) Monocytes % (Manual) Eosinophils % (Manual) Basophils % (Manual) Seg Neutrophils # 9.8 H Seg Neutrophils # Man Lymphocytes # (Manual) Monocytes # (Manual) Eosinophils # (Manual) Nucleated RBC % Basophils # (Manual) APTT Heparin Anti-Xa Level ABG pH POC ABG pO2 ABG pO2 ABG HCO3 ABG O2 Saturation ABG Base Excess POC ABG pCO2 ABG Hemoglobin ABG Oxyhemoglobin Oxyhemoglobin Sodium Potassium Chloride 96.9 L Carbon Dioxide 37 H BUN 27 H Creatinine 0.7 L Glucose 140 H POC Glucose 145 H Lactic Acid Calcium Phosphorus Magnesium AST ALT Lactate Dehydrogenase CK-MB (CK-2) C-Reactive Protein NT-Pro-B Natriuret Pep Total Protein Albumin Urine WBC (Auto) 12/21/19 12/21/19 12/21/19 05:38 10:13 11:51 WBC RBC Hgb Hct MCHC RDW MCH Lymph % (Auto) [place] % (Auto) [place] # Eos # Lymph # (Auto) [place] # (Auto) Eos # (Auto) Seg Neutrophils % Seg Neuts % (Manual) Baso # (Auto) Lymphocytes % (Manual) Monocytes % (Manual) Eosinophils % (Manual) Basophils % (Manual) Seg Neutrophils # Seg Neutrophils # Man Lymphocytes # (Manual) Monocytes # (Manual) Eosinophils # (Manual) Nucleated RBC % Basophils # (Manual) APTT 23.9 L Heparin Anti-Xa Level < 0.10 L ABG pH POC ABG pO2 ABG pO2 ABG HCO3 ABG O2 Saturation ABG Base Excess POC ABG pCO2 ABG Hemoglobin ABG Oxyhemoglobin Oxyhemoglobin Sodium Potassium Chloride Carbon Dioxide BUN Creatinine Glucose POC Glucose 151 H 145 H Lactic Acid Calcium Phosphorus Magnesium AST ALT Lactate Dehydrogenase CK-MB (CK-2) C-Reactive Protein NT-Pro-B Natriuret Pep Total Protein Albumin Urine WBC (Auto) 12/21/19 12/22/19 12/22/19 17:16 00:01 01:33 WBC RBC Hgb Hct MCHC RDW MCH Lymph % (Auto) [place] % (Auto) [place] # Eos # Lymph # (Auto) [place] # (Auto) Eos # (Auto) Seg Neutrophils % Seg Neuts % (Manual) Baso # (Auto) Lymphocytes % (Manual) Monocytes % (Manual) Eosinophils % (Manual) Basophils % (Manual) Seg Neutrophils # Seg Neutrophils # Man Lymphocytes # (Manual) Monocytes # (Manual) Eosinophils # (Manual) Nucleated RBC % Basophils # (Manual) APTT Heparin Anti-Xa Level 0.10 L ABG pH POC ABG pO2 ABG pO2 ABG HCO3 ABG O2 Saturation ABG Base Excess POC ABG pCO2 ABG Hemoglobin ABG Oxyhemoglobin Oxyhemoglobin Sodium Potassium Chloride Carbon Dioxide BUN Creatinine Glucose POC Glucose 167 H 179 H Lactic Acid Calcium Phosphorus Magnesium AST ALT Lactate Dehydrogenase CK-MB (CK-2) C-Reactive Protein NT-Pro-B Natriuret Pep Total Protein Albumin Urine WBC (Auto) 12/22/19 12/22/19 12/22/19 03:22 05:10 05:10 WBC 13.8 H RBC 3.20 L Hgb 8.9 L Hct 28.1 L MCHC RDW 15.9 H MCH Lymph % (Auto) [place] % (Auto) [place] # Eos # Lymph # (Auto) [place] # (Auto) Eos # (Auto) Seg Neutrophils % Seg Neuts % (Manual) Baso # (Auto) Lymphocytes % (Manual) Monocytes % (Manual) Eosinophils % (Manual) Basophils % (Manual) Seg Neutrophils # Seg Neutrophils # Man Lymphocytes # (Manual) Monocytes # (Manual) Eosinophils # (Manual) Nucleated RBC % Basophils # (Manual) APTT Heparin Anti-Xa Level ABG pH POC ABG pO2 52.3 L ABG pO2 ABG HCO3 ABG O2 Saturation ABG Base Excess POC ABG pCO2 52.9 H ABG Hemoglobin 10.7 L ABG Oxyhemoglobin 84 L Oxyhemoglobin Sodium Potassium Chloride 96.6 L Carbon Dioxide BUN 25 H Creatinine 0.7 L Glucose 129 H POC Glucose Lactic Acid Calcium Phosphorus Magnesium AST ALT Lactate Dehydrogenase CK-MB (CK-2) C-Reactive Protein NT-Pro-B Natriuret Pep Total Protein Albumin Urine WBC (Auto) 12/22/19 12/22/19 12/22/19 05:18 12:32 12:43 WBC RBC Hgb Hct MCHC RDW MCH Lymph % (Auto) [place] % (Auto) [place] # Eos # Lymph # (Auto) [place] # (Auto) Eos # (Auto) Seg Neutrophils % Seg Neuts % (Manual) Baso # (Auto) Lymphocytes % (Manual) Monocytes % (Manual) Eosinophils % (Manual) Basophils % (Manual) Seg Neutrophils # Seg Neutrophils # Man Lymphocytes # (Manual) Monocytes # (Manual) Eosinophils # (Manual) Nucleated RBC % Basophils # (Manual) APTT Heparin Anti-Xa Level 0.18 L ABG pH POC ABG pO2 ABG pO2 ABG HCO3 ABG O2 Saturation ABG Base Excess POC ABG pCO2 ABG Hemoglobin ABG Oxyhemoglobin Oxyhemoglobin Sodium Potassium Chloride Carbon Dioxide BUN Creatinine Glucose POC Glucose 131 H 208 H Lactic Acid Calcium Phosphorus Magnesium AST ALT Lactate Dehydrogenase CK-MB (CK-2) C-Reactive Protein NT-Pro-B Natriuret Pep Total Protein Albumin Urine WBC (Auto) 12/22/19 12/22/19 12/23/19 17:44 23:20 03:51 WBC 15.2 H RBC 3.43 L Hgb 9.6 L Hct 30.3 L MCHC RDW 15.9 H MCH Lymph % (Auto) [place] % (Auto) [place] # Eos # Lymph # (Auto) [place] # (Auto) Eos # (Auto) Seg Neutrophils % Seg Neuts % (Manual) Baso # (Auto) Lymphocytes % (Manual) Monocytes % (Manual) Eosinophils % (Manual) Basophils % (Manual) Seg Neutrophils # Seg Neutrophils # Man Lymphocytes # (Manual) Monocytes # (Manual) Eosinophils # (Manual) Nucleated RBC % Basophils # (Manual) APTT Heparin Anti-Xa Level ABG pH POC ABG pO2 ABG pO2 ABG HCO3 ABG O2 Saturation ABG Base Excess POC ABG pCO2 ABG Hemoglobin ABG Oxyhemoglobin Oxyhemoglobin Sodium Potassium Chloride Carbon Dioxide BUN Creatinine Glucose POC Glucose 209 H 119 H Lactic Acid Calcium Phosphorus Magnesium AST ALT Lactate Dehydrogenase CK-MB (CK-2) C-Reactive Protein NT-Pro-B Natriuret Pep Total Protein Albumin Urine WBC (Auto) 12/23/19 12/23/19 12/23/19 03:51 05:31 12:09 WBC RBC Hgb Hct MCHC RDW MCH Lymph % (Auto) [place] % (Auto) [place] # Eos # Lymph # (Auto) [place] # (Auto) Eos # (Auto) Seg Neutrophils % Seg Neuts % (Manual) Baso # (Auto) Lymphocytes % (Manual) Monocytes % (Manual) Eosinophils % (Manual) Basophils % (Manual) Seg Neutrophils # Seg Neutrophils # Man Lymphocytes # (Manual) Monocytes # (Manual) Eosinophils # (Manual) Nucleated RBC % Basophils # (Manual) APTT Heparin Anti-Xa Level ABG pH POC ABG pO2 ABG pO2 ABG HCO3 ABG O2 Saturation ABG Base Excess POC ABG pCO2 ABG Hemoglobin ABG Oxyhemoglobin Oxyhemoglobin Sodium Potassium Chloride 97.2 L Carbon Dioxide 31 H BUN 23 H Creatinine 0.6 L Glucose 153 H POC Glucose 149 H 144 H Lactic Acid Calcium Phosphorus Magnesium AST ALT Lactate Dehydrogenase CK-MB (CK-2) C-Reactive Protein NT-Pro-B Natriuret Pep Total Protein Albumin Urine WBC (Auto) 12/23/19 12/23/19 12/23/19 15:30 17:49 23:31 WBC RBC Hgb Hct MCHC RDW MCH Lymph % (Auto) [place] % (Auto) [place] # Eos # Lymph # (Auto) [place] # (Auto) Eos # (Auto) Seg Neutrophils % Seg Neuts % (Manual) Baso # (Auto) Lymphocytes % (Manual) Monocytes % (Manual) Eosinophils % (Manual) Basophils % (Manual) Seg Neutrophils # Seg Neutrophils # Man Lymphocytes # (Manual) Monocytes # (Manual) Eosinophils # (Manual) Nucleated RBC % Basophils # (Manual) APTT Heparin Anti-Xa Level 0.21 L ABG pH POC ABG pO2 ABG pO2 ABG HCO3 ABG O2 Saturation ABG Base Excess POC ABG pCO2 ABG Hemoglobin ABG Oxyhemoglobin Oxyhemoglobin Sodium Potassium Chloride Carbon Dioxide BUN Creatinine Glucose POC Glucose 192 H 151 H Lactic Acid Calcium Phosphorus Magnesium AST ALT Lactate Dehydrogenase CK-MB (CK-2) C-Reactive Protein NT-Pro-B Natriuret Pep Total Protein Albumin Urine WBC (Auto) 12/24/19 12/24/19 12/24/19 05:34 12:13 16:50 WBC RBC Hgb Hct MCHC RDW MCH Lymph % (Auto) [place] % (Auto) [place] # Eos # Lymph # (Auto) [place] # (Auto) Eos # (Auto) Seg Neutrophils % Seg Neuts % (Manual) Baso # (Auto) Lymphocytes % (Manual) Monocytes % (Manual) Eosinophils % (Manual) Basophils % (Manual) Seg Neutrophils # Seg Neutrophils # Man Lymphocytes # (Manual) Monocytes # (Manual) Eosinophils # (Manual) Nucleated RBC % Basophils # (Manual) APTT Heparin Anti-Xa Level 0.16 L ABG pH POC ABG pO2 ABG pO2 ABG HCO3 ABG O2 Saturation ABG Base Excess POC ABG pCO2 ABG Hemoglobin ABG Oxyhemoglobin Oxyhemoglobin Sodium Potassium Chloride Carbon Dioxide BUN Creatinine Glucose POC Glucose 145 H 124 H Lactic Acid Calcium Phosphorus Magnesium AST ALT Lactate Dehydrogenase CK-MB (CK-2) C-Reactive Protein NT-Pro-B Natriuret Pep Total Protein Albumin Urine WBC (Auto) 12/24/19 12/25/19 12/25/19 17:53 00:14 04:18 WBC 12.9 H RBC 3.30 L Hgb 9.1 L Hct 28.8 L MCHC RDW 16.4 H MCH Lymph % (Auto) [place] % (Auto) 7.8 H [place] # Eos # Lymph # (Auto) [place] # (Auto) 1.0 H Eos # (Auto) Seg Neutrophils % 75.5 H Seg Neuts % (Manual) Baso # (Auto) Lymphocytes % (Manual) Monocytes % (Manual) Eosinophils % (Manual) Basophils % (Manual) Seg Neutrophils # 9.7 H Seg Neutrophils # Man Lymphocytes # (Manual) Monocytes # (Manual) Eosinophils # (Manual) Nucleated RBC % Basophils # (Manual) APTT Heparin Anti-Xa Level ABG pH POC ABG pO2 ABG pO2 ABG HCO3 ABG O2 Saturation ABG Base Excess POC ABG pCO2 ABG Hemoglobin ABG Oxyhemoglobin Oxyhemoglobin Sodium Potassium Chloride Carbon Dioxide BUN Creatinine Glucose POC Glucose 164 H 148 H Lactic Acid Calcium Phosphorus Magnesium AST ALT Lactate Dehydrogenase CK-MB (CK-2) C-Reactive Protein NT-Pro-B Natriuret Pep Total Protein Albumin Urine WBC (Auto) 12/25/19 12/25/19 12/25/19 04:18 05:38 11:44 WBC RBC Hgb Hct MCHC RDW MCH Lymph % (Auto) [place] % (Auto) [place] # Eos # Lymph # (Auto) [place] # (Auto) Eos # (Auto) Seg Neutrophils % Seg Neuts % (Manual) Baso # (Auto) Lymphocytes % (Manual) Monocytes % (Manual) Eosinophils % (Manual) Basophils % (Manual) Seg Neutrophils # Seg Neutrophils # Man Lymphocytes # (Manual) Monocytes # (Manual) Eosinophils # (Manual) Nucleated RBC % Basophils # (Manual) APTT Heparin Anti-Xa Level ABG pH POC ABG pO2 ABG pO2 ABG HCO3 ABG O2 Saturation ABG Base Excess POC ABG pCO2 ABG Hemoglobin ABG Oxyhemoglobin Oxyhemoglobin Sodium Potassium Chloride Carbon Dioxide 33 H BUN 27 H Creatinine 0.6 L Glucose 132 H POC Glucose 152 H 166 H Lactic Acid Calcium Phosphorus Magnesium AST ALT Lactate Dehydrogenase CK-MB (CK-2) C-Reactive Protein NT-Pro-B Natriuret Pep Total Protein Albumin Urine WBC (Auto) 12/25/19 12/26/19 12/26/19 18:29 00:17 00:18 WBC RBC Hgb Hct MCHC RDW MCH Lymph % (Auto) [place] % (Auto) [place] # Eos # Lymph # (Auto) [place] # (Auto) Eos # (Auto) Seg Neutrophils % Seg Neuts % (Manual) Baso # (Auto) Lymphocytes % (Manual) Monocytes % (Manual) Eosinophils % (Manual) Basophils % (Manual) Seg Neutrophils # Seg Neutrophils # Man Lymphocytes # (Manual) Monocytes # (Manual) Eosinophils # (Manual) Nucleated RBC % Basophils # (Manual) APTT Heparin Anti-Xa Level ABG pH POC ABG pO2 ABG pO2 ABG HCO3 ABG O2 Saturation ABG Base Excess POC ABG pCO2 ABG Hemoglobin ABG Oxyhemoglobin Oxyhemoglobin Sodium Potassium Chloride 97.8 L Carbon Dioxide BUN 25 H Creatinine 0.6 L Glucose 140 H POC Glucose 194 H 151 H Lactic Acid Calcium Phosphorus Magnesium AST ALT Lactate Dehydrogenase CK-MB (CK-2) C-Reactive Protein NT-Pro-B Natriuret Pep Total Protein Albumin Urine WBC (Auto) 12/26/19 12/26/19 12/26/19 05:36 11:41 17:50 WBC RBC Hgb Hct MCHC RDW MCH Lymph % (Auto) [place] % (Auto) [place] # Eos # Lymph # (Auto) [place] # (Auto) Eos # (Auto) Seg Neutrophils % Seg Neuts % (Manual) Baso # (Auto) Lymphocytes % (Manual) Monocytes % (Manual) Eosinophils % (Manual) Basophils % (Manual) Seg Neutrophils # Seg Neutrophils # Man Lymphocytes # (Manual) Monocytes # (Manual) Eosinophils # (Manual) Nucleated RBC % Basophils # (Manual) APTT Heparin Anti-Xa Level ABG pH POC ABG pO2 ABG pO2 ABG HCO3 ABG O2 Saturation ABG Base Excess POC ABG pCO2 ABG Hemoglobin ABG Oxyhemoglobin Oxyhemoglobin Sodium Potassium Chloride Carbon Dioxide BUN Creatinine Glucose POC Glucose 156 H 148 H 139 H Lactic Acid Calcium Phosphorus Magnesium AST ALT Lactate Dehydrogenase CK-MB (CK-2) C-Reactive Protein NT-Pro-B Natriuret Pep Total Protein Albumin Urine WBC (Auto) 12/26/19 12/27/19 12/27/19 23:19 05:34 12:02 WBC RBC Hgb Hct MCHC RDW MCH Lymph % (Auto) [place] % (Auto) [place] # Eos # Lymph # (Auto) [place] # (Auto) Eos # (Auto) Seg Neutrophils % Seg Neuts % (Manual) Baso # (Auto) Lymphocytes % (Manual) Monocytes % (Manual) Eosinophils % (Manual) Basophils % (Manual) Seg Neutrophils # Seg Neutrophils # Man Lymphocytes # (Manual) Monocytes # (Manual) Eosinophils # (Manual) Nucleated RBC % Basophils # (Manual) APTT Heparin Anti-Xa Level ABG pH POC ABG pO2 ABG pO2 ABG HCO3 ABG O2 Saturation ABG Base Excess POC ABG pCO2 ABG Hemoglobin ABG Oxyhemoglobin Oxyhemoglobin Sodium Potassium Chloride Carbon Dioxide BUN Creatinine Glucose POC Glucose 161 H 145 H 157 H Lactic Acid Calcium Phosphorus Magnesium AST ALT Lactate Dehydrogenase CK-MB (CK-2) C-Reactive Protein NT-Pro-B Natriuret Pep Total Protein Albumin Urine WBC (Auto) 12/27/19 12/27/19 12/27/19 17:35 20:11 23:00 WBC RBC Hgb Hct MCHC RDW MCH Lymph % (Auto) [place] % (Auto) [place] # Eos # Lymph # (Auto) [place] # (Auto) Eos # (Auto) Seg Neutrophils % Seg Neuts % (Manual) Baso # (Auto) Lymphocytes % (Manual) Monocytes % (Manual) Eosinophils % (Manual) Basophils % (Manual) Seg Neutrophils # Seg Neutrophils # Man Lymphocytes # (Manual) Monocytes # (Manual) Eosinophils # (Manual) Nucleated RBC % Basophils # (Manual) APTT Heparin Anti-Xa Level 0.19 L ABG pH POC ABG pO2 ABG pO2 ABG HCO3 ABG O2 Saturation ABG Base Excess POC ABG pCO2 ABG Hemoglobin ABG Oxyhemoglobin Oxyhemoglobin Sodium Potassium Chloride Carbon Dioxide BUN Creatinine Glucose POC Glucose 158 H 155 H Lactic Acid Calcium Phosphorus Magnesium AST ALT Lactate Dehydrogenase CK-MB (CK-2) C-Reactive Protein NT-Pro-B Natriuret Pep Total Protein Albumin Urine WBC (Auto) 12/27/19 12/28/19 12/28/19 23:45 02:41 02:41 WBC 13.0 H RBC 3.48 L Hgb 9.5 L Hct 30.6 L MCHC 31 L RDW 16.6 H MCH 27 L Lymph % (Auto) 13.0 L [place] % (Auto) 8.0 H [place] # Eos # Lymph # (Auto) [place] # (Auto) 1.0 H Eos # (Auto) Seg Neutrophils % 76.3 H Seg Neuts % (Manual) Baso # (Auto) Lymphocytes % (Manual) Monocytes % (Manual) Eosinophils % (Manual) Basophils % (Manual) Seg Neutrophils # 9.9 H Seg Neutrophils # Man Lymphocytes # (Manual) Monocytes # (Manual) Eosinophils # (Manual) Nucleated RBC % Basophils # (Manual) APTT Heparin Anti-Xa Level ABG pH POC ABG pO2 ABG pO2 ABG HCO3 ABG O2 Saturation ABG Base Excess POC ABG pCO2 ABG Hemoglobin ABG Oxyhemoglobin Oxyhemoglobin Sodium Potassium Chloride Carbon Dioxide BUN 22 H Creatinine 0.6 L Glucose 101 H POC Glucose 130 H Lactic Acid Calcium Phosphorus Magnesium AST ALT Lactate Dehydrogenase CK-MB (CK-2) C-Reactive Protein NT-Pro-B Natriuret Pep Total Protein Albumin Urine WBC (Auto) 12/28/19 12/28/19 12/28/19 06:00 12:34 18:13 WBC RBC Hgb Hct MCHC RDW MCH Lymph % (Auto) [place] % (Auto) [place] # Eos # Lymph # (Auto) [place] # (Auto) Eos # (Auto) Seg Neutrophils % Seg Neuts % (Manual) Baso # (Auto) Lymphocytes % (Manual) Monocytes % (Manual) Eosinophils % (Manual) Basophils % (Manual) Seg Neutrophils # Seg Neutrophils # Man Lymphocytes # (Manual) Monocytes # (Manual) Eosinophils # (Manual) Nucleated RBC % Basophils # (Manual) APTT Heparin Anti-Xa Level ABG pH POC ABG pO2 ABG pO2 ABG HCO3 ABG O2 Saturation ABG Base Excess POC ABG pCO2 ABG Hemoglobin ABG Oxyhemoglobin Oxyhemoglobin Sodium Potassium Chloride Carbon Dioxide BUN Creatinine Glucose POC Glucose 150 H 161 H 128 H Lactic Acid Calcium Phosphorus Magnesium AST ALT Lactate Dehydrogenase CK-MB (CK-2) C-Reactive Protein NT-Pro-B Natriuret Pep Total Protein Albumin Urine WBC (Auto) 12/28/19 12/29/19 12/29/19 23:36 05:21 11:40 WBC RBC Hgb Hct MCHC RDW MCH Lymph % (Auto) [place] % (Auto) [place] # Eos # Lymph # (Auto) [place] # (Auto) Eos # (Auto) Seg Neutrophils % Seg Neuts % (Manual) Baso # (Auto) Lymphocytes % (Manual) Monocytes % (Manual) Eosinophils % (Manual) Basophils % (Manual) Seg Neutrophils # Seg Neutrophils # Man Lymphocytes # (Manual) Monocytes # (Manual) Eosinophils # (Manual) Nucleated RBC % Basophils # (Manual) APTT Heparin Anti-Xa Level ABG pH POC ABG pO2 ABG pO2 ABG HCO3 ABG O2 Saturation ABG Base Excess POC ABG pCO2 ABG Hemoglobin ABG Oxyhemoglobin Oxyhemoglobin Sodium Potassium Chloride Carbon Dioxide BUN Creatinine Glucose POC Glucose 137 H 136 H 166 H Lactic Acid Calcium Phosphorus Magnesium AST ALT Lactate Dehydrogenase CK-MB (CK-2) C-Reactive Protein NT-Pro-B Natriuret Pep Total Protein Albumin Urine WBC (Auto) 12/29/19 12/29/19 12/29/19 17:23 19:21 23:38 WBC RBC Hgb Hct MCHC RDW MCH Lymph % (Auto) [place] % (Auto) [place] # Eos # Lymph # (Auto) [place] # (Auto) Eos # (Auto) Seg Neutrophils % Seg Neuts % (Manual) Baso # (Auto) Lymphocytes % (Manual) Monocytes % (Manual) Eosinophils % (Manual) Basophils % (Manual) Seg Neutrophils # Seg Neutrophils # Man Lymphocytes # (Manual) Monocytes # (Manual) Eosinophils # (Manual) Nucleated RBC % Basophils # (Manual) APTT Heparin Anti-Xa Level 0.20 L ABG pH POC ABG pO2 ABG pO2 ABG HCO3 ABG O2 Saturation ABG Base Excess POC ABG pCO2 ABG Hemoglobin ABG Oxyhemoglobin Oxyhemoglobin Sodium Potassium Chloride Carbon Dioxide BUN Creatinine Glucose POC Glucose 144 H 141 H Lactic Acid Calcium Phosphorus Magnesium AST ALT Lactate Dehydrogenase CK-MB (CK-2) C-Reactive Protein NT-Pro-B Natriuret Pep Total Protein Albumin Urine WBC (Auto) 12/30/19 12/30/19 12/30/19 03:58 03:58 04:59 WBC RBC 3.54 L Hgb 9.8 L Hct 30.7 L MCHC RDW 16.8 H MCH Lymph % (Auto) [place] % (Auto) [place] # Eos # Lymph # (Auto) [place] # (Auto) Eos # (Auto) Seg Neutrophils % Seg Neuts % (Manual) Baso # (Auto) Lymphocytes % (Manual) Monocytes % (Manual) Eosinophils % (Manual) Basophils % (Manual) Seg Neutrophils # Seg Neutrophils # Man Lymphocytes # (Manual) Monocytes # (Manual) Eosinophils # (Manual) Nucleated RBC % Basophils # (Manual) APTT Heparin Anti-Xa Level ABG pH POC ABG pO2 ABG pO2 ABG HCO3 29.8 H ABG O2 Saturation ABG Base Excess 4.8 H POC ABG pCO2 ABG Hemoglobin 11.2 L ABG Oxyhemoglobin Oxyhemoglobin 93.8 L Sodium Potassium Chloride 97.8 L Carbon Dioxide BUN 26 H Creatinine Glucose 168 H POC Glucose Lactic Acid Calcium Phosphorus Magnesium AST ALT Lactate Dehydrogenase CK-MB (CK-2) C-Reactive Protein NT-Pro-B Natriuret Pep Total Protein Albumin Urine WBC (Auto) 12/30/19 12/30/19 12/30/19 05:45 11:34 17:28 WBC RBC Hgb Hct MCHC RDW MCH Lymph % (Auto) [place] % (Auto) [place] # Eos # Lymph # (Auto) [place] # (Auto) Eos # (Auto) Seg Neutrophils % Seg Neuts % (Manual) Baso # (Auto) Lymphocytes % (Manual) Monocytes % (Manual) Eosinophils % (Manual) Basophils % (Manual) Seg Neutrophils # Seg Neutrophils # Man Lymphocytes # (Manual) Monocytes # (Manual) Eosinophils # (Manual) Nucleated RBC % Basophils # (Manual) APTT Heparin Anti-Xa Level ABG pH POC ABG pO2 ABG pO2 ABG HCO3 ABG O2 Saturation ABG Base Excess POC ABG pCO2 ABG Hemoglobin ABG Oxyhemoglobin Oxyhemoglobin Sodium Potassium Chloride Carbon Dioxide BUN Creatinine Glucose POC Glucose 163 H 180 H 150 H Lactic Acid Calcium Phosphorus Magnesium AST ALT Lactate Dehydrogenase CK-MB (CK-2) C-Reactive Protein NT-Pro-B Natriuret Pep Total Protein Albumin Urine WBC (Auto) 12/30/19 12/31/19 12/31/19 23:43 04:55 05:07 WBC RBC Hgb Hct MCHC RDW MCH Lymph % (Auto) [place] % (Auto) [place] # Eos # Lymph # (Auto) [place] # (Auto) Eos # (Auto) Seg Neutrophils % Seg Neuts % (Manual) Baso # (Auto) Lymphocytes % (Manual) Monocytes % (Manual) Eosinophils % (Manual) Basophils % (Manual) Seg Neutrophils # Seg Neutrophils # Man Lymphocytes # (Manual) Monocytes # (Manual) Eosinophils # (Manual) Nucleated RBC % Basophils # (Manual) APTT Heparin Anti-Xa Level ABG pH POC ABG pO2 ABG pO2 ABG HCO3 ABG O2 Saturation ABG Base Excess POC ABG pCO2 ABG Hemoglobin ABG Oxyhemoglobin Oxyhemoglobin Sodium Potassium 5.6 H D Chloride Carbon Dioxide BUN 33 H Creatinine Glucose 131 H POC Glucose 142 H 134 H Lactic Acid Calcium Phosphorus Magnesium AST ALT Lactate Dehydrogenase CK-MB (CK-2) C-Reactive Protein NT-Pro-B Natriuret Pep Total Protein Albumin Urine WBC (Auto) 12/31/19 12/31/19 12/31/19 11:30 17:19 17:36 WBC RBC Hgb Hct MCHC RDW MCH Lymph % (Auto) [place] % (Auto) [place] # Eos # Lymph # (Auto) [place] # (Auto) Eos # (Auto) Seg Neutrophils % Seg Neuts % (Manual) Baso # (Auto) Lymphocytes % (Manual) Monocytes % (Manual) Eosinophils % (Manual) Basophils % (Manual) Seg Neutrophils # Seg Neutrophils # Man Lymphocytes # (Manual) Monocytes # (Manual) Eosinophils # (Manual) Nucleated RBC % Basophils # (Manual) APTT Heparin Anti-Xa Level ABG pH POC ABG pO2 ABG pO2 ABG HCO3 ABG O2 Saturation ABG Base Excess POC ABG pCO2 ABG Hemoglobin ABG Oxyhemoglobin Oxyhemoglobin Sodium Potassium Chloride Carbon Dioxide BUN 35 H Creatinine Glucose 156 H POC Glucose 158 H 181 H Lactic Acid Calcium Phosphorus Magnesium AST ALT Lactate Dehydrogenase CK-MB (CK-2) C-Reactive Protein NT-Pro-B Natriuret Pep Total Protein Albumin Urine WBC (Auto) 12/31/19 12/31/19 12/31/19 18:16 19:41 21:53 WBC RBC Hgb Hct MCHC RDW MCH Lymph % (Auto) [place] % (Auto) [place] # Eos # Lymph # (Auto) [place] # (Auto) Eos # (Auto) Seg Neutrophils % Seg Neuts % (Manual) Baso # (Auto) Lymphocytes % (Manual) Monocytes % (Manual) Eosinophils % (Manual) Basophils % (Manual) Seg Neutrophils # Seg Neutrophils # Man Lymphocytes # (Manual) Monocytes # (Manual) Eosinophils # (Manual) Nucleated RBC % Basophils # (Manual) APTT Heparin Anti-Xa Level 0.20 L ABG pH POC ABG pO2 ABG pO2 ABG HCO3 ABG O2 Saturation ABG Base Excess POC ABG pCO2 ABG Hemoglobin ABG Oxyhemoglobin Oxyhemoglobin Sodium Potassium Chloride Carbon Dioxide BUN 34 H Creatinine Glucose 169 H POC Glucose 141 H Lactic Acid Calcium Phosphorus Magnesium AST ALT Lactate Dehydrogenase CK-MB (CK-2) C-Reactive Protein NT-Pro-B Natriuret Pep Total Protein Albumin Urine WBC (Auto) 12/31/19 01/01/20 01/01/20 23:51 05:17 10:40 WBC RBC Hgb Hct MCHC RDW MCH Lymph % (Auto) [place] % (Auto) [place] # Eos # Lymph # (Auto) [place] # (Auto) Eos # (Auto) Seg Neutrophils % Seg Neuts % (Manual) Baso # (Auto) Lymphocytes % (Manual) Monocytes % (Manual) Eosinophils % (Manual) Basophils % (Manual) Seg Neutrophils # Seg Neutrophils # Man Lymphocytes # (Manual) Monocytes # (Manual) Eosinophils # (Manual) Nucleated RBC % Basophils # (Manual) APTT Heparin Anti-Xa Level ABG pH POC ABG pO2 ABG pO2 ABG HCO3 ABG O2 Saturation ABG Base Excess POC ABG pCO2 ABG Hemoglobin ABG Oxyhemoglobin Oxyhemoglobin Sodium Potassium Chloride Carbon Dioxide BUN 31 H Creatinine 0.7 L Glucose 137 H POC Glucose 131 H 155 H Lactic Acid Calcium Phosphorus Magnesium AST 73 H ALT 97 H Lactate Dehydrogenase CK-MB (CK-2) C-Reactive Protein NT-Pro-B Natriuret Pep 3866 H Total Protein Albumin 2.8 L Urine WBC (Auto) 01/01/20 01/01/20 01/01/20 12:26 15:33 17:53 WBC 14.3 H RBC 3.35 L Hgb 9.1 L Hct 28.8 L MCHC RDW 17.0 H MCH 27 L Lymph % (Auto) 7.0 L [place] % (Auto) 7.6 H [place] # Eos # Lymph # (Auto) 1.0 L [place] # (Auto) 1.1 H Eos # (Auto) Seg Neutrophils % 83.3 H Seg Neuts % (Manual) Baso # (Auto) Lymphocytes % (Manual) Monocytes % (Manual) Eosinophils % (Manual) Basophils % (Manual) Seg Neutrophils # 12.0 H Seg Neutrophils # Man Lymphocytes # (Manual) Monocytes # (Manual) Eosinophils # (Manual) Nucleated RBC % Basophils # (Manual) APTT Heparin Anti-Xa Level ABG pH POC ABG pO2 ABG pO2 ABG HCO3 ABG O2 Saturation ABG Base Excess POC ABG pCO2 ABG Hemoglobin ABG Oxyhemoglobin Oxyhemoglobin Sodium Potassium Chloride Carbon Dioxide BUN Creatinine Glucose POC Glucose 128 H 128 H Lactic Acid Calcium Phosphorus Magnesium AST ALT Lactate Dehydrogenase CK-MB (CK-2) C-Reactive Protein NT-Pro-B Natriuret Pep Total Protein Albumin Urine WBC (Auto) 01/01/20 01/02/20 01/02/20 23:04 05:39 07:00 WBC RBC Hgb Hct MCHC RDW MCH Lymph % (Auto) [place] % (Auto) [place] # Eos # Lymph # (Auto) [place] # (Auto) Eos # (Auto) Seg Neutrophils % Seg Neuts % (Manual) Baso # (Auto) Lymphocytes % (Manual) Monocytes % (Manual) Eosinophils % (Manual) Basophils % (Manual) Seg Neutrophils # Seg Neutrophils # Man Lymphocytes # (Manual) Monocytes # (Manual) Eosinophils # (Manual) Nucleated RBC % Basophils # (Manual) APTT Heparin Anti-Xa Level 0.13 L ABG pH POC ABG pO2 ABG pO2 ABG HCO3 ABG O2 Saturation ABG Base Excess POC ABG pCO2 ABG Hemoglobin ABG Oxyhemoglobin Oxyhemoglobin Sodium Potassium Chloride Carbon Dioxide BUN Creatinine Glucose POC Glucose 120 H 169 H Lactic Acid Calcium Phosphorus Magnesium AST ALT Lactate Dehydrogenase CK-MB (CK-2) C-Reactive Protein NT-Pro-B Natriuret Pep Total Protein Albumin Urine WBC (Auto) 01/02/20 01/02/20 01/02/20 12:15 14:06 17:58 WBC RBC Hgb Hct MCHC RDW MCH Lymph % (Auto) [place] % (Auto) [place] # Eos # Lymph # (Auto) [place] # (Auto) Eos # (Auto) Seg Neutrophils % Seg Neuts % (Manual) Baso # (Auto) Lymphocytes % (Manual) Monocytes % (Manual) Eosinophils % (Manual) Basophils % (Manual) Seg Neutrophils # Seg Neutrophils # Man Lymphocytes # (Manual) Monocytes # (Manual) Eosinophils # (Manual) Nucleated RBC % Basophils # (Manual) APTT Heparin Anti-Xa Level < 0.10 L ABG pH POC ABG pO2 ABG pO2 ABG HCO3 ABG O2 Saturation ABG Base Excess POC ABG pCO2 ABG Hemoglobin ABG Oxyhemoglobin Oxyhemoglobin Sodium Potassium Chloride Carbon Dioxide BUN Creatinine Glucose POC Glucose 190 H 198 H Lactic Acid Calcium Phosphorus Magnesium AST ALT Lactate Dehydrogenase CK-MB (CK-2) C-Reactive Protein NT-Pro-B Natriuret Pep Total Protein Albumin Urine WBC (Auto) 01/02/20 01/02/20 01/03/20 21:43 23:33 05:42 WBC RBC Hgb Hct MCHC RDW MCH Lymph % (Auto) [place] % (Auto) [place] # Eos # Lymph # (Auto) [place] # (Auto) Eos # (Auto) Seg Neutrophils % Seg Neuts % (Manual) Baso # (Auto) Lymphocytes % (Manual) Monocytes % (Manual) Eosinophils % (Manual) Basophils % (Manual) Seg Neutrophils # Seg Neutrophils # Man Lymphocytes # (Manual) Monocytes # (Manual) Eosinophils # (Manual) Nucleated RBC % Basophils # (Manual) APTT Heparin Anti-Xa Level 0.10 L ABG pH POC ABG pO2 ABG pO2 ABG HCO3 ABG O2 Saturation ABG Base Excess POC ABG pCO2 ABG Hemoglobin ABG Oxyhemoglobin Oxyhemoglobin Sodium Potassium Chloride Carbon Dioxide BUN Creatinine Glucose POC Glucose 180 H 163 H Lactic Acid Calcium Phosphorus Magnesium AST ALT Lactate Dehydrogenase CK-MB (CK-2) C-Reactive Protein NT-Pro-B Natriuret Pep Total Protein Albumin Urine WBC (Auto) 01/03/20 01/03/20 01/03/20 06:50 07:25 07:45 WBC 12.1 H RBC 3.35 L Hgb 9.0 L Hct 28.9 L MCHC 31 L RDW 16.6 H MCH 27 L Lymph % (Auto) 13.0 L [place] % (Auto) 8.6 H [place] # Eos # Lymph # (Auto) [place] # (Auto) 1.0 H Eos # (Auto) Seg Neutrophils % 75.9 H Seg Neuts % (Manual) Baso # (Auto) Lymphocytes % (Manual) Monocytes % (Manual) Eosinophils % (Manual) Basophils % (Manual) Seg Neutrophils # 9.2 H Seg Neutrophils # Man Lymphocytes # (Manual) Monocytes # (Manual) Eosinophils # (Manual) Nucleated RBC % Basophils # (Manual) APTT Heparin Anti-Xa Level 0.29 L ABG pH POC ABG pO2 ABG pO2 ABG HCO3 ABG O2 Saturation ABG Base Excess POC ABG pCO2 ABG Hemoglobin ABG Oxyhemoglobin Oxyhemoglobin Sodium Potassium 3.3 L D Chloride Carbon Dioxide 35 H D BUN 23 H Creatinine 0.6 L Glucose 149 H POC Glucose Lactic Acid Calcium Phosphorus Magnesium AST ALT 88 H Lactate Dehydrogenase CK-MB (CK-2) C-Reactive Protein NT-Pro-B Natriuret Pep Total Protein 6.2 L Albumin 2.9 L Urine WBC (Auto) 01/03/20 01/03/20 01/03/20 12:05 17:42 18:30 WBC RBC Hgb Hct MCHC RDW MCH Lymph % (Auto) [place] % (Auto) [place] # Eos # Lymph # (Auto) [place] # (Auto) Eos # (Auto) Seg Neutrophils % Seg Neuts % (Manual) Baso # (Auto) Lymphocytes % (Manual) Monocytes % (Manual) Eosinophils % (Manual) Basophils % (Manual) Seg Neutrophils # Seg Neutrophils # Man Lymphocytes # (Manual) Monocytes # (Manual) Eosinophils # (Manual) Nucleated RBC % Basophils # (Manual) APTT Heparin Anti-Xa Level ABG pH POC ABG pO2 ABG pO2 70.7 L ABG HCO3 36.1 H ABG O2 Saturation 94.4 L ABG Base Excess 10.0 H POC ABG pCO2 ABG Hemoglobin 9.7 L ABG Oxyhemoglobin Oxyhemoglobin 91.8 L Sodium Potassium Chloride Carbon Dioxide BUN Creatinine Glucose POC Glucose 128 H 132 H Lactic Acid Calcium Phosphorus Magnesium AST ALT Lactate Dehydrogenase CK-MB (CK-2) C-Reactive Protein NT-Pro-B Natriuret Pep Total Protein Albumin Urine WBC (Auto) 01/04/20 01/04/20 01/04/20 00:10 04:26 05:23 WBC RBC Hgb Hct MCHC RDW MCH Lymph % (Auto) [place] % (Auto) [place] # Eos # Lymph # (Auto) [place] # (Auto) Eos # (Auto) Seg Neutrophils % Seg Neuts % (Manual) Baso # (Auto) Lymphocytes % (Manual) Monocytes % (Manual) Eosinophils % (Manual) Basophils % (Manual) Seg Neutrophils # Seg Neutrophils # Man Lymphocytes # (Manual) Monocytes # (Manual) Eosinophils # (Manual) Nucleated RBC % Basophils # (Manual) APTT Heparin Anti-Xa Level 0.16 L ABG pH POC ABG pO2 ABG pO2 ABG HCO3 ABG O2 Saturation ABG Base Excess POC ABG pCO2 ABG Hemoglobin ABG Oxyhemoglobin Oxyhemoglobin Sodium Potassium Chloride Carbon Dioxide BUN Creatinine Glucose POC Glucose 121 H 119 H Lactic Acid Calcium Phosphorus Magnesium AST ALT Lactate Dehydrogenase CK-MB (CK-2) C-Reactive Protein NT-Pro-B Natriuret Pep Total Protein Albumin Urine WBC (Auto) 01/04/20 01/04/20 01/04/20 09:50 09:50 12:18 WBC 15.4 H RBC 3.30 L Hgb 8.7 L Hct 28.2 L MCHC 31 L RDW 17.0 H MCH 26 L Lymph % (Auto) [place] % (Auto) 7.6 H [place] # Eos # Lymph # (Auto) [place] # (Auto) 1.2 H Eos # (Auto) Seg Neutrophils % 75.4 H Seg Neuts % (Manual) Baso # (Auto) Lymphocytes % (Manual) Monocytes % (Manual) Eosinophils % (Manual) Basophils % (Manual) Seg Neutrophils # 11.6 H Seg Neutrophils # Man Lymphocytes # (Manual) Monocytes # (Manual) Eosinophils # (Manual) Nucleated RBC % Basophils # (Manual) APTT Heparin Anti-Xa Level ABG pH POC ABG pO2 ABG pO2 ABG HCO3 ABG O2 Saturation ABG Base Excess POC ABG pCO2 ABG Hemoglobin ABG Oxyhemoglobin Oxyhemoglobin Sodium 148 H Potassium 3.5 L Chloride Carbon Dioxide 32 H BUN Creatinine 0.6 L Glucose 114 H POC Glucose 111 H Lactic Acid Calcium Phosphorus Magnesium AST ALT 59 H Lactate Dehydrogenase CK-MB (CK-2) C-Reactive Protein NT-Pro-B Natriuret Pep Total Protein Albumin 2.6 L Urine WBC (Auto) 01/05/20 01/05/20 01/05/20 04:05 04:05 05:19 WBC 11.7 H RBC 3.50 L Hgb 9.3 L Hct 29.9 L MCHC 31 L RDW 16.6 H MCH 27 L Lymph % (Auto) 13.1 L [place] % (Auto) 9.7 H [place] # Eos # Lymph # (Auto) [place] # (Auto) 1.1 H Eos # (Auto) Seg Neutrophils % 74.0 H Seg Neuts % (Manual) Baso # (Auto) Lymphocytes % (Manual) Monocytes % (Manual) Eosinophils % (Manual) Basophils % (Manual) Seg Neutrophils # 8.6 H Seg Neutrophils # Man Lymphocytes # (Manual) Monocytes # (Manual) Eosinophils # (Manual) Nucleated RBC % Basophils # (Manual) APTT Heparin Anti-Xa Level ABG pH POC ABG pO2 ABG pO2 ABG HCO3 ABG O2 Saturation ABG Base Excess POC ABG pCO2 ABG Hemoglobin ABG Oxyhemoglobin Oxyhemoglobin Sodium 151 H Potassium Chloride Carbon Dioxide 34 H BUN Creatinine 0.7 L Glucose POC Glucose 112 H Lactic Acid Calcium Phosphorus Magnesium AST ALT 59 H Lactate Dehydrogenase CK-MB (CK-2) C-Reactive Protein NT-Pro-B Natriuret Pep Total Protein 5.8 L Albumin 2.6 L Urine WBC (Auto) 01/05/20 01/06/20 01/06/20 16:04 00:23 04:44 WBC RBC 3.36 L Hgb 8.9 L Hct 28.7 L MCHC 31 L RDW 16.9 H MCH 26 L Lymph % (Auto) [place] % (Auto) 9.4 H [place] # Eos # Lymph # (Auto) [place] # (Auto) Eos # (Auto) Seg Neutrophils % Seg Neuts % (Manual) Baso # (Auto) Lymphocytes % (Manual) Monocytes % (Manual) Eosinophils % (Manual) Basophils % (Manual) Seg Neutrophils # Seg Neutrophils # Man Lymphocytes # (Manual) Monocytes # (Manual) Eosinophils # (Manual) Nucleated RBC % Basophils # (Manual) APTT Heparin Anti-Xa Level ABG pH POC ABG pO2 ABG pO2 ABG HCO3 ABG O2 Saturation ABG Base Excess POC ABG pCO2 ABG Hemoglobin ABG Oxyhemoglobin Oxyhemoglobin Sodium 151 H Potassium 3.2 L Chloride Carbon Dioxide 34 H BUN Creatinine 0.6 L Glucose POC Glucose 107 H Lactic Acid Calcium Phosphorus Magnesium AST ALT Lactate Dehydrogenase CK-MB (CK-2) C-Reactive Protein NT-Pro-B Natriuret Pep Total Protein Albumin Urine WBC (Auto) 01/06/20 01/06/20 01/06/20 04:44 05:33 12:04 WBC RBC Hgb Hct MCHC RDW MCH Lymph % (Auto) [place] % (Auto) [place] # Eos # Lymph # (Auto) [place] # (Auto) Eos # (Auto) Seg Neutrophils % Seg Neuts % (Manual) Baso # (Auto) Lymphocytes % (Manual) Monocytes % (Manual) Eosinophils % (Manual) Basophils % (Manual) Seg Neutrophils # Seg Neutrophils # Man Lymphocytes # (Manual) Monocytes # (Manual) Eosinophils # (Manual) Nucleated RBC % Basophils # (Manual) APTT Heparin Anti-Xa Level ABG pH POC ABG pO2 ABG pO2 ABG HCO3 ABG O2 Saturation ABG Base Excess POC ABG pCO2 ABG Hemoglobin ABG Oxyhemoglobin Oxyhemoglobin Sodium 151 H Potassium 3.4 L Chloride Carbon Dioxide 33 H BUN Creatinine 0.6 L Glucose 118 H POC Glucose 118 H 123 H Lactic Acid Calcium Phosphorus Magnesium AST ALT Lactate Dehydrogenase CK-MB (CK-2) C-Reactive Protein NT-Pro-B Natriuret Pep Total Protein 6.2 L Albumin 2.6 L Urine WBC (Auto) 01/06/20 01/07/20 01/07/20 17:54 00:06 04:10 WBC RBC 3.42 L Hgb 8.9 L Hct 29.0 L MCHC 31 L RDW 17.1 H MCH 26 L Lymph % (Auto) [place] % (Auto) 8.4 H [place] # Eos # Lymph # (Auto) [place] # (Auto) Eos # (Auto) Seg Neutrophils % Seg Neuts % (Manual) Baso # (Auto) Lymphocytes % (Manual) Monocytes % (Manual) Eosinophils % (Manual) Basophils % (Manual) Seg Neutrophils # Seg Neutrophils # Man Lymphocytes # (Manual) Monocytes # (Manual) Eosinophils # (Manual) Nucleated RBC % Basophils # (Manual) APTT Heparin Anti-Xa Level ABG pH POC ABG pO2 ABG pO2 ABG HCO3 ABG O2 Saturation ABG Base Excess POC ABG pCO2 ABG Hemoglobin ABG Oxyhemoglobin Oxyhemoglobin Sodium Potassium Chloride Carbon Dioxide BUN Creatinine Glucose POC Glucose 112 H 126 H Lactic Acid Calcium Phosphorus Magnesium AST ALT Lactate Dehydrogenase CK-MB (CK-2) C-Reactive Protein NT-Pro-B Natriuret Pep Total Protein Albumin Urine WBC (Auto) 01/07/20 01/07/20 01/07/20 04:10 05:59 12:27 WBC RBC Hgb Hct MCHC RDW MCH Lymph % (Auto) [place] % (Auto) [place] # Eos # Lymph # (Auto) [place] # (Auto) Eos # (Auto) Seg Neutrophils % Seg Neuts % (Manual) Baso # (Auto) Lymphocytes % (Manual) Monocytes % (Manual) Eosinophils % (Manual) Basophils % (Manual) Seg Neutrophils # Seg Neutrophils # Man Lymphocytes # (Manual) Monocytes # (Manual) Eosinophils # (Manual) Nucleated RBC % Basophils # (Manual) APTT Heparin Anti-Xa Level ABG pH POC ABG pO2 ABG pO2 ABG HCO3 ABG O2 Saturation ABG Base Excess POC ABG pCO2 ABG Hemoglobin ABG Oxyhemoglobin Oxyhemoglobin Sodium 153 H Potassium 3.5 L Chloride Carbon Dioxide 34 H BUN Creatinine 0.6 L Glucose 121 H POC Glucose 121 H 126 H Lactic Acid Calcium Phosphorus Magnesium AST ALT Lactate Dehydrogenase CK-MB (CK-2) C-Reactive Protein NT-Pro-B Natriuret Pep Total Protein 5.9 L Albumin 2.4 L Urine WBC (Auto) 01/07/20 01/08/20 01/08/20 18:12 00:03 05:41 WBC RBC Hgb Hct MCHC RDW MCH Lymph % (Auto) [place] % (Auto) [place] # Eos # Lymph # (Auto) [place] # (Auto) Eos # (Auto) Seg Neutrophils % Seg Neuts % (Manual) Baso # (Auto) Lymphocytes % (Manual) Monocytes % (Manual) Eosinophils % (Manual) Basophils % (Manual) Seg Neutrophils # Seg Neutrophils # Man Lymphocytes # (Manual) Monocytes # (Manual) Eosinophils # (Manual) Nucleated RBC % Basophils # (Manual) APTT Heparin Anti-Xa Level ABG pH POC ABG pO2 ABG pO2 ABG HCO3 ABG O2 Saturation ABG Base Excess POC ABG pCO2 ABG Hemoglobin ABG Oxyhemoglobin Oxyhemoglobin Sodium Potassium Chloride Carbon Dioxide BUN Creatinine Glucose POC Glucose 124 H 130 H 138 H Lactic Acid Calcium Phosphorus Magnesium AST ALT Lactate Dehydrogenase CK-MB (CK-2) C-Reactive Protein NT-Pro-B Natriuret Pep Total Protein Albumin Urine WBC (Auto) 01/08/20 01/08/20 01/08/20 09:28 11:42 18:21 WBC RBC Hgb Hct MCHC RDW MCH Lymph % (Auto) [place] % (Auto) [place] # Eos # Lymph # (Auto) [place] # (Auto) Eos # (Auto) Seg Neutrophils % Seg Neuts % (Manual) Baso # (Auto) Lymphocytes % (Manual) Monocytes % (Manual) Eosinophils % (Manual) Basophils % (Manual) Seg Neutrophils # Seg Neutrophils # Man Lymphocytes # (Manual) Monocytes # (Manual) Eosinophils # (Manual) Nucleated RBC % Basophils # (Manual) APTT Heparin Anti-Xa Level ABG pH POC ABG pO2 ABG pO2 ABG HCO3 ABG O2 Saturation ABG Base Excess POC ABG pCO2 ABG Hemoglobin ABG Oxyhemoglobin Oxyhemoglobin Sodium Potassium Chloride Carbon Dioxide BUN Creatinine Glucose POC Glucose 181 H 150 H 129 H Lactic Acid Calcium Phosphorus Magnesium AST ALT Lactate Dehydrogenase CK-MB (CK-2) C-Reactive Protein NT-Pro-B Natriuret Pep Total Protein Albumin Urine WBC (Auto) 01/08/20 01/08/20 01/09/20 19:25 23:55 04:11 WBC RBC 3.43 L Hgb 8.9 L Hct 28.7 L MCHC 31 L RDW 17.6 H MCH 26 L Lymph % (Auto) [place] % (Auto) 8.6 H [place] # Eos # Lymph # (Auto) [place] # (Auto) Eos # (Auto) Seg Neutrophils % Seg Neuts % (Manual) Baso # (Auto) Lymphocytes % (Manual) Monocytes % (Manual) Eosinophils % (Manual) Basophils % (Manual) Seg Neutrophils # Seg Neutrophils # Man Lymphocytes # (Manual) Monocytes # (Manual) Eosinophils # (Manual) Nucleated RBC % Basophils # (Manual) APTT Heparin Anti-Xa Level ABG pH POC ABG pO2 ABG pO2 ABG HCO3 ABG O2 Saturation ABG Base Excess POC ABG pCO2 ABG Hemoglobin ABG Oxyhemoglobin Oxyhemoglobin Sodium Potassium Chloride Carbon Dioxide BUN Creatinine 0.7 L Glucose 117 H POC Glucose 132 H Lactic Acid Calcium Phosphorus Magnesium AST ALT Lactate Dehydrogenase CK-MB (CK-2) C-Reactive Protein NT-Pro-B Natriuret Pep Total Protein Albumin Urine WBC (Auto) 01/09/20 01/09/20 04:11 05:38 WBC RBC Hgb Hct MCHC RDW MCH Lymph % (Auto) [place] % (Auto) [place] # Eos # Lymph # (Auto) [place] # (Auto) Eos # (Auto) Seg Neutrophils % Seg Neuts % (Manual) Baso # (Auto) Lymphocytes % (Manual) Monocytes % (Manual) Eosinophils % (Manual) Basophils % (Manual) Seg Neutrophils # Seg Neutrophils # Man Lymphocytes # (Manual) Monocytes # (Manual) Eosinophils # (Manual) Nucleated RBC % Basophils # (Manual) APTT Heparin Anti-Xa Level ABG pH POC ABG pO2 ABG pO2 ABG HCO3 ABG O2 Saturation ABG Base Excess POC ABG pCO2 ABG Hemoglobin ABG Oxyhemoglobin Oxyhemoglobin Sodium 147 H Potassium 3.3 L D Chloride Carbon Dioxide 32 H BUN Creatinine 0.6 L Glucose 106 H POC Glucose 107 H Lactic Acid Calcium Phosphorus Magnesium AST ALT Lactate Dehydrogenase CK-MB (CK-2) C-Reactive Protein NT-Pro-B Natriuret Pep Total Protein Albumin Urine WBC (Auto) Chest x-ray: other (none today) Allied health notes reviewed: nursing
--- NOTE | 2020-01-09 14:31 | Progress Note ---
Assessment and Plan -Partial SBO, resolved -Acute LLL PE -Acute RLE DVT -Persistent fevers; secondary to sepsis and acute PE/DVT -Severe sepsis; secondary to bilateral pneumonia, persistent fevers -Acute hypoxemic respiratory failure, on vent unable to wean -Bilateral pneumonia, community acquired, -Aspiration Pneumonia -Sustained SVT, on amiodarone -Acute on chronic systolic congestive heart failure -History of cerebrovascular accident. -Tobacco use disorder -Alcohol abuse with DT -Acute chronic obstructive pulmonary disease exacerbation. -Hypertension and hypertensive urgency at presentation. -History of arthritis. -Paroxysmal atrial fibrillation -Leukocytosis with possible sepsis. -Lactic acidosis. -Bleeding from ET tube -Oropharyngeal dysphagia -S/P Knee surgery -History of peptic Ulcer Surgery -DVT prophylaxis COVID-19 test; 11/24/2019; negative 11/26/2019; negative Plan Continue ventilatory support - Now s/p trach and PEG Aspiration precautions Continue to adjust amiodarone and metoprolol for suppression of paroxysmal atrial fibrillation. Continue anticoagulation Started back on vancomycin and zosyn BC 03/28 - coag negative staph ?contaminant. Sputum cultures pending. Low-dose Lasix as needed DVT/GI prophy Heparin/Protonix Plan of care reviewed with the patient's nurse BS consulted for partial SBO Closely monitor the patient and adjust management as needed The high probability of a clinically significant, sudden or life threatening deterioration of the [Respiratory, cardiovascular & neurological] system(s) required my full and direct attention, intervention and personal management. The aggregate critical care time was [33] minutes without overlap. Time includes spent on [x] Data Review and interpretation [x] Patient assessment and monitoring of vital signs [x] Documentation [x] Medication orders and management Brief History Patient is a 64-year-old male with known history of hypertension, COPD, history of coronary artery disease, CHF with ejection fraction of 20 to 25% in August 2018 presenting to the emergency room via EMS complaining of shortness of breath. Patient was found to be hypoxic and in respiratory distress. Patient was placed on CPAP in route to the hospital. Oxygen saturation was said to be 88%. Started on Solu-Medrol, Lasix and magnesium in ED, patient was also found to be lethargic with an oxygen saturation of about 91% on CPAP. He was subsequently intubated. Work-up in the emergency room including chest x-ray reveals bilateral pneumonia. He had an elevated white count of 14 and also had an elevated BNP. Patient admitted to the ICU and placed on empiric IV antibiotics for pneumonia. He tested negative for COVID-19 and placed on isolation precautions. Remains intubated on ventilatory support, sputum cultures positive for Pseudomonas, ID treated with cefepime and Vanco. His hospital course became complicated with acute PE, DVT, paroxysmal atrial fib - placed on chronic anticoagulation. P atient was difficult to wean off, status post trach and PEG, remains on mechanical ventilation with trach tube. He now developed partial small bowel obstruction and not tolerating tube feeding. Placed on NG suction, general surgery following. 11/25: Leukocytosis improving. Continue current management anticipate extubation possible today. 11/26. Still intubated. Failed SBT yesterday. Repeat COVID-19 test is negative. 11/27. CT head ordered for possible neuro status change is negative. More respon sive as the day progressed as per RN. Chest xray today shows interval improvement. He is still on antibiotics - will complete regimen today. 11/28: Considering difficult extubation and severe cardiomyopathy, will obtain cardiology consult. Aspiration precautions, tube feeds held, continue antibiotics. 11/29: Still with intermittent fever but improving imaging, continue diuresis. 11/30; Extremely agitated when placed on PSV- SVT, hypertension. Patiet acknowledged that he drinks. IV Ativan given, CIWA protocol initiated. 12 lead ordered showed SVT, one dose of amiodarone ordered. continue to follow u p cardiology recommendation 12/01: Patient remains on mechanical ventilation, getting SBT trial. Remains in SVT, started on amiodarone drip by cardiology. 12/02; patient is on mechanical ventilation and on spontaneous breathing trial. Cardiology started the patient on PO amiodarone. Patient is on cefepime. 12/03: patient is on mechanical ventilation. Cardiology started the patient on PO amiodarone for SVT. Patient is on cefepime, no fever overnight. 12/04: Patient is sedated and on mechanical ventilation. Patient had fever yesterday afternoon 102.3, ID changed his cefepime to meropenem. Heart rate is controlled, cardiology is following. Patient has paroxysmal atrial fibrillation and on amiodarone and metoprolol, subcu heparin for anticoagulation and will need oral anticoagulation once stable. 12/05: Sputum cultures positive for Pseudomonas, ID following 12/06; patient is febrile T-max 24 hours 102 F ,ID change antibiotics to cefepime and Vancomycin 12/07: resumed care. Na 149 today, start on 1/2 NS. cont current care 12/08: remains in a stable sinus rhythm and stable blood pressure, continue supportive care. wean off vent as tolerated. persistent fever - ordered CTA chest 12/09: noted bloody discharges from ET tube last night. CTA and LE venous doppler positive for acute PE and DVT. resume heparin drip, consult vascular for possible EKOS/ IVC filter. monitor h/h. cont SBT trial, wean off vent as tolerated. called but no answer 12/10: cont heparin drip for acute PE and DVT, follow vascular recommendation. monitor h/h, wean off vent as tolerated 12/11: o/n had bleeding from ET tube, cont to monitor h/h. vascular recommending medical Mx. called ; Nicolle Araiza [phone]. 12/12: H&H remained stable, patient on heparin drip. Discussed with yesterday. Discussed with critical care attending. Patient not tolerating SBT trial. Continue to wean off from vent as tolerated, follow clinically. Tolerating tube feeding 12/13: Continue heparin drip, wean off from vent as tolerated. Discussed with pulmonary attending if no improvement by the end of 3 weeks of intubation patient may need trach and PEG. Continue to provide supportive care, follow CBC and BMP. 12/14: Stop cefepime today, wean off from vent as tolerated. cont Heparin infusion, while monitoring for bleeding 12/15: Patient is not tolerating SBT trial, becoming apnic on CPAP. May need to place on trach and PEG. Continue heparin drip, monitor off antibiotics 12/16. Still maintained on vent. May need PEG and trach as her has been failed SBTs 12/17. Had low UO overnight. Started on tamsulosin. May need PEG and trach - defer to pulm. 12/18-. Plan for US thoracentesis to help with weaning. Remains on heparin drip for VTE. 12/20. Discussed with spouse today. He will get thoracentesis today. INR/PTT ordered. Heparin drip held. 12/21: planned for trach and PEG, cont supportive care, thoracentesis cancelled 12/22: cont supportive care, wean off from vent, daily SBT 12/23: tolerating SBT, possible extubation soon. cont supportive care 12/24: wean off vent as tolerated, daily SBT, follow clinically 12/25; cont to monitor, wean off vent as tolerated 12/26: Continue to monitor wean off vent as tolerated patient is tolerating SBT trial but not ready to wean off. 12/27: need trach and PEG, will f/u with GS, cont supportive care 12/28: pending trach/PEG 12/29: plan for trach and PEG on Saturday 12/30: Plan for trach and PEG. Temp 101F. Blood cultures, urinalysis and chest xray ordered. 12/31. Had afib with RVR overnight. Metoprolol dose has been increased. He is still on amiodarone. Plan for PEG tube placement today. Repeat chest x-ray shows worsening infiltrates. Started on the Lasix. Monitor fever now. Blood cultures negative so far. Urinalysis pending 01/01. Started on antibiotics as he had another fever. On vancomycin and zosyn. ID consulted. HR still in the 100s. Had trach and PEG placement on 12/31 with no complications. BC 03/28 - Coag negative staph? contaminant. 01/02. On antibiotics. ID consulted. HR still high. Cardiology adjusting HR control medications. 01/03. HR better. Heparin switched to DOAC. HR better. Started on bumex 01/04: c/o abdominal pain, not tolerating TF, had projectile vomiting few times. Abd xry/CT abd suggestive of partial SBO, reconsult surgery, place NG with suction, start iv fluid. 01/05; Pt stable. NGT output 650cc over 24 hours, bilious. No f/c, WBC within normal limits. cont NG suction and cont to hold TF 01/06: Abs series - mild improvement in small bowel distension in mid abdomen, normal gas/stool pattern in colon. NGT in duodenum. Continue to hold tube feeding, maintain NG tube with low intermittent suction. Patient's was updated by phone. Continue to provide supportive care and monitor clinically. 01/07: +BMs today and NGT/PEG output appears more gastric today. Plan to clamp NGT, if tolerates start TF from tomorrow. cont supportive care. 01/08; Gastric output decreased over last 24 hours. NGT has been clamped x 24 hours. plan to dc NGT and to start TTF via PEG - vital HF @10cc/hr Subjective Date of service: 01/09/20 Principal diagnosis: Ac hypoxemic resp failure; Pneumonia; PUI COVID-19; CHF; COPD; HTN Interval history: Patient seen and examined Patient intubated on trach Discussed with RN at the bedside H/H STABLE, Objective - Exam Narrative Exam: General appearance: Present: well-nourished, opens eyes to names and follows minor command - EENT Eyes: Present: PERRL, EOM intact. Absent: scleral icterus ENT: clear oral mucosa, dentition normal - Neck Neck: Present: supple, normal ROM - Respiratory Respiratory effort: normal, mechanical ventilation with trach Respiratory: bilateral: rales - Cardiovascular Rhythm: regular Heart Sounds: Present: S1 & S2, tachycardic. Absent: gallop, systolic murmur, diastolic murmur, rub - Extremities Extremities: no ischemia, pulses intact, pulses symmetrical, No edema, Full ROM Peripheral Pulses: within normal limits - Abdominal General gastrointestinal: Present: soft, + tender, distended, hypoactive bowel sounds. - Integumentary Integumentary: Present: clear, warm, dry. Absent: rash - Musculoskeletal Musculoskeletal: no joint swelling - Psychiatric Psychiatric: no agitation Neurology: no focal deficits - Constitutional Vitals: Vital Signs - 12hr 01/09/20 01/09/20 01/09/20 02:44 03:00 03:30 Temperature Pulse Rate 76 68 Pulse Rate [ From Monitor] Respiratory 21 25 H Rate Blood Pressure 105/60 101/66 O2 Sat by Pulse 100 99 Oximetry O2 Sat by Pulse 100 Oximetry [ Assessment] 01/09/20 01/09/20 01/09/20 03:40 04:00 04:01 Temperature 97.8 F Pulse Rate 74 74 Pulse Rate [ From Monitor] Respiratory 14 Rate Blood Pressure 101/66 107/67 O2 Sat by Pulse 98 99 Oximetry O2 Sat by Pulse Oximetry [ Assessment] 01/09/20 01/09/20 01/09/20 04:30 05:00 05:30 Temperature Pulse Rate 69 78 74 Pulse Rate [ From Monitor] Respiratory 18 22 24 Rate Blood Pressure 103/65 111/70 105/68 O2 Sat by Pulse 98 92 98 Oximetry O2 Sat by Pulse Oximetry [ Assessment] 01/09/20 01/09/20 01/09/20 06:00 06:30 07:00 Temperature Pulse Rate 71 69 74 Pulse Rate [ From Monitor] Respiratory 22 23 19 Rate Blood Pressure 111/72 101/63 101/67 O2 Sat by Pulse 98 100 99 Oximetry O2 Sat by Pulse Oximetry [ Assessment] 01/09/20 01/09/20 01/09/20 07:30 07:39 07:52 Temperature Pulse Rate 75 79 Pulse Rate [ 74 From Monitor] Respiratory 25 H 18 Rate Blood Pressure 117/69 117/69 O2 Sat by Pulse 98 100 100 Oximetry O2 Sat by Pulse Oximetry [ Assessment] 01/09/20 01/09/20 01/09/20 07:55 07:57 08:00 Temperature 98.2 F Pulse Rate 78 Pulse Rate [ From Monitor] Respiratory 24 Rate Blood Pressure 116/70 O2 Sat by Pulse 99 Oximetry O2 Sat by Pulse 100 Oximetry [ Assessment] 01/09/20 01/09/20 01/09/20 08:30 09:00 09:30 Temperature Pulse Rate 78 75 79 Pulse Rate [ From Monitor] Respiratory 22 22 21 Rate Blood Pressure 110/72 117/72 112/68 O2 Sat by Pulse 100 99 100 Oximetry O2 Sat by Pulse Oximetry [ Assessment] 01/09/20 01/09/20 01/09/20 10:00 10:30 11:00 Temperature Pulse Rate 77 76 82 Pulse Rate [ From Monitor] Respiratory 21 25 H 21 Rate Blood Pressure 110/72 105/75 112/75 O2 Sat by Pulse 100 100 100 Oximetry O2 Sat by Pulse Oximetry [ Assessment] 01/09/20 01/09/20 01/09/20 11:15 11:21 11:30 Temperature Pulse Rate 77 81 77 Pulse Rate [ From Monitor] Respiratory 24 Rate Blood Pressure 112/75 112/75 119/80 O2 Sat by Pulse 99 Oximetry O2 Sat by Pulse Oximetry [ Assessment] 01/09/20 01/09/20 01/09/20 12:00 12:09 12:30 Temperature 98.3 F Pulse Rate 69 73 80 Pulse Rate [ 81 From Monitor] Respiratory 22 25 H Rate Blood Pressure 117/73 117/73 117/73 O2 Sat by Pulse 99 100 Oximetry O2 Sat by Pulse Oximetry [ Assessment] 01/09/20 13:00 Temperature Pulse Rate 72 Pulse Rate [ From Monitor] Respiratory 23 Rate Blood Pressure 107/75 O2 Sat by Pulse 99 Oximetry O2 Sat by Pulse Oximetry [ Assessment] - Labs CBC & Chem 7: 01/09/20 04:11 01/10/20 04:05 Labs: Abnormal lab results 01/08/20 01/08/20 01/08/20 Range/Units 11:42 18:21 19:25 RBC (3.65-5.03) M/mm3 Hgb (11.8-15.2) gm/dl Hct (35.5-45.6) % MCH (28-32) pg MCHC (32-34) % RDW (13.2-15.2) % [facility] % (Auto) (0.0-7.3) % Sodium (137-145) mmol/L Potassium (3.6-5.0) mmol/L Carbon Dioxide (22-30) mmol/L Creatinine 0.7 L (0.8-1.3) mg/dL Glucose 117 H (75-100) mg/dL POC Glucose 150 H 129 H (70-105) 01/08/20 01/09/20 01/09/20 Range/Units 23:55 04:11 04:11 RBC 3.43 L (3.65-5.03) M/mm3 Hgb 8.9 L (11.8-15.2) gm/dl Hct 28.7 L (35.5-45.6) % MCH 26 L (28-32) pg MCHC 31 L (32-34) % RDW 17.6 H (13.2-15.2) % [facility] % (Auto) 8.6 H (0.0-7.3) % Sodium 147 H (137-145) mmol/L Potassium 3.3 L D (3.6-5.0) mmol/L Carbon Dioxide 32 H (22-30) mmol/L Creatinine 0.6 L (0.8-1.3) mg/dL Glucose 106 H (75-100) mg/dL POC Glucose 132 H (70-105) 01/09/20 Range/Units 05:38 RBC (3.65-5.03) M/mm3 Hgb (11.8-15.2) gm/dl Hct (35.5-45.6) % MCH (28-32) pg MCHC (32-34) % RDW (13.2-15.2) % [facility] % (Auto) (0.0-7.3) % Sodium (137-145) mmol/L Potassium (3.6-5.0) mmol/L Carbon Dioxide (22-30) mmol/L Creatinine (0.8-1.3) mg/dL Glucose (75-100) mg/dL POC Glucose 107 H (70-105) HEART Score - HEART Score Troponin: Troponin T < 0.010 ng/mL (0.00-0.029) 11/24/19 02:53
[2020-01-09] MEDS ORDERED: SODIUM CHLORIDE 0.9% 500 ML 500 ML ONE (19:04)
[2020-01-09] MEDS: POTASSIUM CHLORIDE 10 MEQ 10 MEQ/100 ML BAG IV SCH ×3 (19:16→21:03)
[2020-01-10] MEDS: METOPROLOL TARTRATE 25 MG TAB FEEDTUBE SCH ×4 (00:28→17:24)
[2020-01-10] MEDS: METOPROLOL TARTRATE 5 MG/5 ML INJ IV SCH ×4 (02:00→19:55)
[2020-01-10] MEDS ORDERED: SODIUM CHLORIDE 0.9% 1000 ML 250 ML IV ONE (02:39)
[2020-01-10] MEDS ORDERED: SODIUM CHLORIDE 0.9% 250ML 250 ML IV SCH (02:45)
[2020-01-10 05:08] LABS: Blood Urea Nitrogen 11 mg/dL (9-20); Calcium 8.7 mg/dL (8.4-10.2); Hemolysis Index 44
[2020-01-10 05:09] LABS: BUN/Creatinine Ratio 16
[2020-01-10] MEDS ORDERED: SODIUM CHLORIDE 0.9% 500 ML 500 ML IV ONE (06:20)
[2020-01-10] MEDS: DEXTROSE 5% IN WATER 1,000 ML IV SCH (08:49)
[2020-01-10] MEDS: MORPHINE 2 MG/1 ML INJ IV PRN ×2 (09:43→22:05)
[2020-01-10] MEDS: QUEtiapine 200 MG TAB PO SCH ×2 (09:43→21:41)
[2020-01-10] MEDS: DOCUSATE SODIUM 100 MG/10 ML ORAL LIQD FEEDTUBE SCH ×2 (09:43→21:40)
[2020-01-10] MEDS: FAMOTIDINE 20 MG/2 ML INJ IV SCH ×2 (09:43→21:41)
[2020-01-10] MEDS: AMIODARONE 200 MG TAB PO SCH ×2 (09:43→21:41)
[2020-01-10] MEDS: ENOXAPARIN 120 MG/0.8 ML INJ SUB-Q SCH ×2 (09:44→21:40)
--- NOTE | 2020-01-10 10:41 | Progress Note ---
Assessment and Plan Paroxysmal atrial fibrillation Maintaining sinus rhythm Ischemic cardiomyopathy LVEF 40-45% Coronary artery disease s/p PCI Cath 12/2018 - no evidence of obstructive CAD Chronic respiratory failure s/p trach and mechanically ventilated History of COPD Multifocal pneumonia Small bowel obstruction Possible Ileus Acute PE/DVT on SC lovenox Recommendations: Continue current management with amiodarone, lovenox and metoprolol Holding metoprolol due to borderline low blood pressure No new cardiac recommendations Subjective Date of service: 01/10/20 Principal diagnosis: Ac hypoxemic resp failure; Pneumonia; PUI COVID-19; CHF; COPD; HTN Interval history: Patient appears comfortable. Patient has a trach and is mechanically ventilated. Tele is showing sinus rhythm. Objective Vital Signs Temp Pulse Pulse Resp BP Pulse Ox Pulse Ox 01/10/20 10:00 79 19 98/76 100 01/10/20 09:30 78 24 98/70 99 01/10/20 09:00 81 16 103/75 99 01/10/20 08:30 81 21 96/67 99 01/10/20 08:09 98 01/10/20 08:01 86 21 108/75 94 01/10/20 08:00 98.4 F 77 86 18 88/57 99 01/10/20 07:30 74 27 H 88/57 98 01/10/20 07:01 93 H 22 116/83 100 01/10/20 06:34 70 83/56 01/10/20 06:30 73 15 86/56 99 01/10/20 06:00 67 21 79/51 100 01/10/20 05:30 70 25 H 85/53 98 01/10/20 05:25 100 01/10/20 05:00 71 25 H 81/52 98 01/10/20 04:31 72 22 84/54 96 01/10/20 04:19 73 106/67 99 01/10/20 04:00 97.5 F L 78 68 18 106/67 97 01/10/20 03:31 77 21 138/91 98 01/10/20 03:00 80 15 114/74 01/10/20 02:30 85 21 114/78 97 01/10/20 02:00 69 15 104/60 97 01/10/20 01:30 68 16 102/66 01/10/20 01:00 68 14 104/64 99 01/10/20 00:30 66 12 96/61 98 20 00:28 66 102/63 01/10/20 00:00 73 68 11 L 102/63 98 01/09/20 23:51 98.2 F 01/09/20 23:30 78 18 118/72 90 01/09/20 23:26 73 111/68 98 01/09/20 23:10 68 18 111/68 99 01/09/20 23:00 69 18 111/68 98 01/09/20 22:30 67 21 101/70 94 01/09/20 22:00 68 19 115/64 91 01/09/20 21:30 76 24 117/70 95 01/09/20 21:00 74 24 110/71 96 01/09/20 20:32 74 103/63 99 01/09/20 20:30 74 25 H 103/63 100 01/09/20 20:00 98.7 F 68 21 109/70 100 01/09/20 19:57 68 24 100 01/09/20 19:30 70 21 109/67 97 01/09/20 19:12 72 113/73 01/09/20 19:00 75 24 113/73 98 01/09/20 18:30 83 20 118/84 97 01/09/20 18:00 74 10 L 111/80 01/09/20 17:30 73 20 121/77 99 01/09/20 17:00 78 22 120/81 100 01/09/20 16:30 75 19 115/81 100 01/09/20 16:00 75 78 18 108/73 97 01/09/20 15:59 98.2 F 01/09/20 15:41 100 01/09/20 15:39 79 99/75 100 01/09/20 15:30 75 18 99/75 100 01/09/20 15:00 75 22 96/74 100 01/09/20 14:30 71 21 98/69 100 01/09/20 14:00 69 21 99/68 100 01/09/20 13:30 68 19 107/73 99 01/09/20 13:00 72 23 107/75 99 01/09/20 12:30 80 25 H 117/73 01/09/20 12:09 73 117/73 100 01/09/20 12:00 98.3 F 69 81 22 117/73 99 01/09/20 11:30 77 24 119/80 99 01/09/20 11:21 81 112/75 01/09/20 11:15 77 112/75 01/09/20 11:00 82 21 112/75 100 - Physical Examination General: Other (vent to trach) HEENT: Positive: PERRL Neck: Positive: neck supple Cardiac: Positive: Reg Rate and Rhythm Lungs: Positive: Ventilated Respirations Neuro: Positive: Other (Sedated, on the vent via trach) Abdomen: Positive: Soft Skin: Positive: Clear Extremities: Absent: edema - Labs and Meds Comprehensive Metabolic Panel 01/10/20 Range/Units 04:05 Sodium 142 (137-145) mmol/L Potassium 3.9 (3.6-5.0) mmol/L Chloride 102.0 (98-107) mmol/L Carbon Dioxide 29 (22-30) mmol/L BUN 11 (9-20) mg/dL Creatinine 0.7 L (0.8-1.3) mg/dL Glucose 110 H (75-100) mg/dL Calcium 8.7 (8.4-10.2) mg/dL - Allied health notes Allied health notes reviewed: RT
--- NOTE | 2020-01-10 13:34 | Progress Note ---
Assessment and Plan Acute hypoxemic respiratory failure Bilateral pneumonia, community acquired. Acute LLL branch P.E. Acute DVT Person under investigation for COVID-19 infection. Acute congestive heart failure exacerbation. History of cerebrovascular accident. Acute chronic obstructive pulmonary disease exacerbation. Hypertension and hypertensive urgency at presentation. History of arthritis. Leukocytosis. Lactic acidosis. Oropharyngeal dysphagia - continue daily SAT's and SBT assessment as tolerated (RT to resume SBT) - continue full anticoagulation with Lovenox - continue trickle feeding as tolerated and advance per surgeon - continue scopolamine patch for secretions - continue care as below otherwise; - continue seroquel for anxiolysis / delirium - COVID isolation per facility protocol - prn diuresis while following electrolytes / I's & O's - continue to wean oxygen for O2 sat's > 92% - continue bronchodilators with routine trach care and pulmonary hygiene per RT - VAP bundle addressed (Aspiration precautions, HOB >40) - continue to wean per pulmonary driven protocols - sedation target is RASS 0 to -1 - continue prn analgesia per CPOT score - follow clinically re: fever curves / trend WBC - Avoid delirium (no benzodiazepines if they can be avoided) - Maintain sleep-wake cycle - enteral nutrition at goal rate as tolerated - continue accucheck's with glycemic control per SSI for target blood glucose goal of 140-180 mg/dL while critically ill; Avoid hypoglycemia - for VTE he is on IV Heparin - continue stress ulcer prophylaxis with Famotidine - continue mobility protocols for pressure ulcer prophylaxis - continue fall precautions - continue wound care management per RN / WCT - Supportive transfusions to keep HgB>7g/dL - CXR's and ABG's prn - Continue to monitor neurologic function - Continue chronic home medications - Continue all supportive care ........ re-evaluate in am & prn CONDITION: CRITICAL PROGNOSIS: GUARDED CODE STATUS: FULL CODE The high probability of a clinically significant, sudden or life threatening deterioration of the [Respiratory, cardiovascular & neurological] system(s) required my full and direct attention, intervention and personal management. The aggregate critical care time was [31] minutes without overlap. Time includes spent on [x] Data Review and interpretation [x] Patient assessment and monitoring of vital signs [x] Documentation [x] Medication orders and management Subjective Date of service: 01/10/20 Principal diagnosis: Ac hypoxemic resp failure; Pneumonia; PUI COVID-19; CHF; COPD; HTN Interval history: Patient is seen today for: Acute hypoxemic respiratory failure; Adan. Pneumonia (CAP); PUI COVID-19 infection; AE-CHF; AE-COPD; H/O CVA; HTN Seen and examined at bedside; 24 hour events reviewed; nursing and respiratory care staff consulted; no adverse overnight events reported to me; resting peacefully in bed; remains on MVS; weaning tenuously; no emesis or overt aspirat ion; denies any pain; wants to eat; tolerating trickle feeding Objective Vital Signs - 12hr 01/10/20 01/10/20 01/10/20 02:00 02:30 03:00 Temperature Pulse Rate 69 85 80 Pulse Rate [ From Monitor] Respiratory 15 21 15 Rate Blood Pressure 104/60 114/78 114/74 O2 Sat by Pulse 97 97 Oximetry O2 Sat by Pulse Oximetry [ Assessment] 01/10/20 01/10/20 01/10/20 03:31 04:00 04:19 Temperature 97.5 F L Pulse Rate 77 78 73 Pulse Rate [ 68 From Monitor] Respiratory 21 18 Rate Blood Pressure 138/91 106/67 106/67 O2 Sat by Pulse 98 97 99 Oximetry O2 Sat by Pulse Oximetry [ Assessment] 01/10/20 01/10/20 01/10/20 04:31 05:00 05:25 Temperature Pulse Rate 72 71 Pulse Rate [ From Monitor] Respiratory 22 25 H Rate Blood Pressure 84/54 81/52 O2 Sat by Pulse 96 98 Oximetry O2 Sat by Pulse 100 Oximetry [ Assessment] 01/10/20 01/10/20 01/10/20 05:30 06:00 06:30 Temperature Pulse Rate 70 67 73 Pulse Rate [ From Monitor] Respiratory 25 H 21 15 Rate Blood Pressure 85/53 79/51 86/56 O2 Sat by Pulse 98 100 99 Oximetry O2 Sat by Pulse Oximetry [ Assessment] 01/10/20 01/10/20 01/10/20 06:34 07:01 07:30 Temperature Pulse Rate 70 93 H 74 Pulse Rate [ From Monitor] Respiratory 22 27 H Rate Blood Pressure 83/56 116/83 88/57 O2 Sat by Pulse 100 98 Oximetry O2 Sat by Pulse Oximetry [ Assessment] 01/10/20 01/10/20 01/10/20 08:00 08:01 08:09 Temperature 98.4 F Pulse Rate 77 86 Pulse Rate [ 86 From Monitor] Respiratory 18 21 Rate Blood Pressure 88/57 108/75 O2 Sat by Pulse 99 94 Oximetry O2 Sat by Pulse 98 Oximetry [ Assessment] 01/10/20 01/10/20 01/10/20 08:30 09:00 09:30 Temperature Pulse Rate 81 81 78 Pulse Rate [ From Monitor] Respiratory 21 16 24 Rate Blood Pressure 96/67 103/75 98/70 O2 Sat by Pulse 99 99 99 Oximetry O2 Sat by Pulse Oximetry [ Assessment] 01/10/20 01/10/20 01/10/20 10:00 10:30 11:00 Temperature Pulse Rate 79 75 73 Pulse Rate [ From Monitor] Respiratory 19 18 17 Rate Blood Pressure 98/76 93/64 93/66 O2 Sat by Pulse 100 98 Oximetry O2 Sat by Pulse Oximetry [ Assessment] 01/10/20 01/10/20 01/10/20 11:08 11:31 11:43 Temperature 98.7 F Pulse Rate 73 74 Pulse Rate [ 73 From Monitor] Respiratory 17 16 Rate Blood Pressure 98/68 O2 Sat by Pulse 98 100 Oximetry O2 Sat by Pulse Oximetry [ Assessment] 01/10/20 01/10/20 01/10/20 12:00 12:30 13:00 Temperature Pulse Rate 78 78 78 Pulse Rate [ From Monitor] Respiratory 22 21 22 Rate Blood Pressure 103/70 103/73 103/70 O2 Sat by Pulse 98 99 Oximetry O2 Sat by Pulse Oximetry [ Assessment] Constitutional: no acute distress, other (elelderly and obese male, normocephalic with mildly increased respiratory effort at rest on MVS) Eyes: non-icteric ENT: oropharynx moist, other (trach to MVS, NGT to LIS) Neck: supple, no JVD Effort: mildly labored Ascultation: Bilateral: diminished breath sounds, rhonchi, other (mild secretions) Percussion: Bilateral: not dull Cardiovascular: irregular rhythm, other (S1,S2) Gastrointestinal: normoactive bowel sounds, soft, non-tender, other (distended, PEG in place) Integumentary: normal Extremities: no cyanosis, pulses normal, no ischemia or petechiae, edema (bilateral upper ) Neurologic: non-focal exam (moves extremities), pupils equal and round, CN II- XII normal Psychiatric: mood appropriate, affect normal CBC and BMP: 01/12/20 04:18 01/12/20 04:18 ABG, PT/INR, D-dimer: ABG ABG pH 7.415 pH Units (7.350-7.450) 01/03/20 18:30 POC ABG pCO2 52.9 mmHg (32.0-48.0) H 12/22/19 03:22 ABG pCO2 57.6 mm Hg 01/03/20 18:30 POC ABG pO2 52.3 mmHg (83-108) L 12/22/19 03:22 ABG pO2 70.7 mm Hg (80.0-90.0) L 01/03/20 18:30 POC ABG HCO3 33.4 12/22/19 03:22 ABG O2 Saturation 94.4 % (95.0-99.0) L 01/03/20 18:30 PT/INR, D-dimer PT 13.8 Sec. (12.2-14.9) 12/21/19 10:13 INR 1.05 (0.87-1.13) 12/21/19 10:13 Abnormal lab findings: Abnormal Labs 11/24/19 11/24/19 11/24/19 02:53 02:53 03:45 WBC 14.3 H RBC Hgb Hct MCHC RDW 17.2 H MCH Lymph % (Auto) [place] % (Auto) [place] # Eos # Lymph # (Auto) [place] # (Auto) Eos # (Auto) Seg Neutrophils % Seg Neuts % (Manual) Baso # (Auto) Lymphocytes % (Manual) Monocytes % (Manual) Eosinophils % (Manual) Basophils % (Manual) Seg Neutrophils # Seg Neutrophils # Man 8.3 H Lymphocytes # (Manual) Monocytes # (Manual) 0.9 H Eosinophils # (Manual) Nucleated RBC % Basophils # (Manual) APTT Heparin Anti-Xa Level ABG pH 7.313 L POC ABG pO2 ABG pO2 102.8 H ABG HCO3 ABG O2 Saturation ABG Base Excess -2.9 L POC ABG pCO2 ABG Hemoglobin ABG Oxyhemoglobin Oxyhemoglobin 93.9 L Sodium Potassium Chloride Carbon Dioxide BUN Creatinine Glucose 195 H POC Glucose Lactic Acid Calcium Phosphorus Magnesium AST ALT Lactate Dehydrogenase CK-MB (CK-2) 4.3 H C-Reactive Protein NT-Pro-B Natriuret Pep 1181 H Total Protein Albumin Urine WBC (Auto) 11/24/19 11/24/19 11/24/19 04:53 04:53 10:37 WBC RBC Hgb Hct MCHC RDW MCH Lymph % (Auto) [place] % (Auto) [place] # Eos # Lymph # (Auto) [place] # (Auto) Eos # (Auto) Seg Neutrophils % Seg Neuts % (Manual) Baso # (Auto) Lymphocytes % (Manual) Monocytes % (Manual) Eosinophils % (Manual) Basophils % (Manual) Seg Neutrophils # Seg Neutrophils # Man Lymphocytes # (Manual) Monocytes # (Manual) Eosinophils # (Manual) Nucleated RBC % Basophils # (Manual) APTT Heparin Anti-Xa Level ABG pH POC ABG pO2 ABG pO2 ABG HCO3 ABG O2 Saturation ABG Base Excess POC ABG pCO2 ABG Hemoglobin ABG Oxyhemoglobin Oxyhemoglobin Sodium Potassium Chloride Carbon Dioxide BUN Creatinine Glucose 162 H POC Glucose Lactic Acid 2.40 H* 2.50 H* Calcium Phosphorus Magnesium AST ALT Lactate Dehydrogenase 240 H CK-MB (CK-2) C-Reactive Protein NT-Pro-B Natriuret Pep Total Protein Albumin Urine WBC (Auto) 11/24/19 11/24/19 11/24/19 12:21 14:50 19:54 WBC RBC Hgb Hct MCHC RDW MCH Lymph % (Auto) [place] % (Auto) [place] # Eos # Lymph # (Auto) [place] # (Auto) Eos # (Auto) Seg Neutrophils % Seg Neuts % (Manual) Baso # (Auto) Lymphocytes % (Manual) Monocytes % (Manual) Eosinophils % (Manual) Basophils % (Manual) Seg Neutrophils # Seg Neutrophils # Man Lymphocytes # (Manual) Monocytes # (Manual) Eosinophils # (Manual) Nucleated RBC % Basophils # (Manual) APTT Heparin Anti-Xa Level ABG pH POC ABG pO2 ABG pO2 ABG HCO3 ABG O2 Saturation ABG Base Excess POC ABG pCO2 ABG Hemoglobin ABG Oxyhemoglobin Oxyhemoglobin Sodium Potassium Chloride Carbon Dioxide BUN Creatinine Glucose POC Glucose 145 H 143 H 124 H Lactic Acid Calcium Phosphorus Magnesium AST ALT Lactate Dehydrogenase CK-MB (CK-2) C-Reactive Protein NT-Pro-B Natriuret Pep Total Protein Albumin Urine WBC (Auto) 11/25/19 11/25/19 11/25/19 00:18 03:18 05:11 WBC 13.7 H RBC Hgb Hct MCHC RDW 17.1 H MCH Lymph % (Auto) 10.8 L [place] % (Auto) 8.7 H [place] # 1.2 H Eos # Lymph # (Auto) [place] # (Auto) Eos # (Auto) Seg Neutrophils % 80.2 H Seg Neuts % (Manual) Baso # (Auto) Lymphocytes % (Manual) Monocytes % (Manual) Eosinophils % (Manual) Basophils % (Manual) Seg Neutrophils # 11.0 H Seg Neutrophils # Man Lymphocytes # (Manual) Monocytes # (Manual) Eosinophils # (Manual) Nucleated RBC % Basophils # (Manual) APTT Heparin Anti-Xa Level ABG pH 7.333 L POC ABG pO2 ABG pO2 61.2 L ABG HCO3 ABG O2 Saturation 90.2 L ABG Base Excess POC ABG pCO2 ABG Hemoglobin 13.7 L ABG Oxyhemoglobin Oxyhemoglobin 88.2 L Sodium Potassium Chloride Carbon Dioxide BUN Creatinine Glucose POC Glucose 109 H Lactic Acid Calcium Phosphorus Magnesium AST ALT Lactate Dehydrogenase CK-MB (CK-2) C-Reactive Protein NT-Pro-B Natriuret Pep Total Protein Albumin Urine WBC (Auto) 11/25/19 11/25/19 11/26/19 05:11 11:40 03:12 WBC RBC Hgb Hct MCHC RDW MCH Lymph % (Auto) [place] % (Auto) [place] # Eos # Lymph # (Auto) [place] # (Auto) Eos # (Auto) Seg Neutrophils % Seg Neuts % (Manual) Baso # (Auto) Lymphocytes % (Manual) Monocytes % (Manual) Eosinophils % (Manual) Basophils % (Manual) Seg Neutrophils # Seg Neutrophils # Man Lymphocytes # (Manual) Monocytes # (Manual) Eosinophils # (Manual) Nucleated RBC % Basophils # (Manual) APTT Heparin Anti-Xa Level ABG pH POC ABG pO2 ABG pO2 155.1 H ABG HCO3 27.8 H ABG O2 Saturation ABG Base Excess POC ABG pCO2 ABG Hemoglobin 12.2 L ABG Oxyhemoglobin Oxyhemoglobin Sodium Potassium Chloride Carbon Dioxide BUN 23 H Creatinine Glucose 110 H POC Glucose 108 H Lactic Acid Calcium Phosphorus Magnesium AST ALT Lactate Dehydrogenase CK-MB (CK-2) C-Reactive Protein NT-Pro-B Natriuret Pep Total Protein Albumin Urine WBC (Auto) 09/03/20 09/03/20 09/03/20 06:17 10:43 10:43 WBC 11.4 H RBC Hgb Hct MCHC RDW 17.1 H MCH Lymph % (Auto) [place] % (Auto) [place] # Eos # Lymph # (Auto) [place] # (Auto) Eos # (Auto) Seg Neutrophils % Seg Neuts % (Manual) Baso # (Auto) Lymphocytes % (Manual) Monocytes % (Manual) Eosinophils % (Manual) Basophils % (Manual) Seg Neutrophils # Seg Neutrophils # Man Lymphocytes # (Manual) Monocytes # (Manual) Eosinophils # (Manual) Nucleated RBC % Basophils # (Manual) APTT Heparin Anti-Xa Level ABG pH POC ABG pO2 ABG pO2 ABG HCO3 ABG O2 Saturation ABG Base Excess POC ABG pCO2 ABG Hemoglobin ABG Oxyhemoglobin Oxyhemoglobin Sodium Potassium Chloride Carbon Dioxide BUN 29 H Creatinine Glucose POC Glucose 107 H Lactic Acid Calcium Phosphorus Magnesium AST ALT Lactate Dehydrogenase CK-MB (CK-2) C-Reactive Protein NT-Pro-B Natriuret Pep Total Protein Albumin Urine WBC (Auto) 11/26/19 11/27/19 11/27/19 17:11 01:53 04:11 WBC RBC Hgb Hct MCHC RDW MCH Lymph % (Auto) [place] % (Auto) [place] # Eos # Lymph # (Auto) [place] # (Auto) Eos # (Auto) Seg Neutrophils % Seg Neuts % (Manual) Baso # (Auto) Lymphocytes % (Manual) Monocytes % (Manual) Eosinophils % (Manual) Basophils % (Manual) Seg Neutrophils # Seg Neutrophils # Man Lymphocytes # (Manual) Monocytes # (Manual) Eosinophils # (Manual) Nucleated RBC % Basophils # (Manual) APTT Heparin Anti-Xa Level ABG pH POC ABG pO2 ABG pO2 ABG HCO3 29.2 H ABG O2 Saturation ABG Base Excess 3.4 H POC ABG pCO2 ABG Hemoglobin 13.3 L ABG Oxyhemoglobin Oxyhemoglobin 94.5 L Sodium Potassium Chloride Carbon Dioxide BUN Creatinine Glucose POC Glucose 113 H 108 H Lactic Acid Calcium Phosphorus Magnesium AST ALT Lactate Dehydrogenase CK-MB (CK-2) C-Reactive Protein NT-Pro-B Natriuret Pep Total Protein Albumin Urine WBC (Auto) 11/27/19 11/28/19 11/28/19 05:27 05:00 05:25 WBC RBC Hgb Hct MCHC RDW MCH Lymph % (Auto) [place] % (Auto) [place] # Eos # Lymph # (Auto) [place] # (Auto) Eos # (Auto) Seg Neutrophils % Seg Neuts % (Manual) Baso # (Auto) Lymphocytes % (Manual) Monocytes % (Manual) Eosinophils % (Manual) Basophils % (Manual) Seg Neutrophils # Seg Neutrophils # Man Lymphocytes # (Manual) Monocytes # (Manual) Eosinophils # (Manual) Nucleated RBC % Basophils # (Manual) APTT Heparin Anti-Xa Level ABG pH POC ABG pO2 68.1 L ABG pO2 ABG HCO3 ABG O2 Saturation ABG Base Excess POC ABG pCO2 ABG Hemoglobin ABG Oxyhemoglobin 91.2 L Oxyhemoglobin Sodium Potassium Chloride Carbon Dioxide BUN Creatinine Glucose POC Glucose 111 H 110 H Lactic Acid Calcium Phosphorus Magnesium AST ALT Lactate Dehydrogenase CK-MB (CK-2) C-Reactive Protein NT-Pro-B Natriuret Pep Total Protein Albumin Urine WBC (Auto) 11/28/19 11/28/19 11/28/19 12:08 13:47 13:47 WBC 11.3 H RBC Hgb Hct MCHC RDW 16.1 H MCH Lymph % (Auto) [place] % (Auto) 9.9 H [place] # 1.1 H Eos # Lymph # (Auto) [place] # (Auto) Eos # (Auto) Seg Neutrophils % 71.4 H Seg Neuts % (Manual) Baso # (Auto) Lymphocytes % (Manual) Monocytes % (Manual) Eosinophils % (Manual) Basophils % (Manual) Seg Neutrophils # 8.1 H Seg Neutrophils # Man Lymphocytes # (Manual) Monocytes # (Manual) Eosinophils # (Manual) Nucleated RBC % Basophils # (Manual) APTT Heparin Anti-Xa Level ABG pH POC ABG pO2 ABG pO2 ABG HCO3 ABG O2 Saturation ABG Base Excess POC ABG pCO2 ABG Hemoglobin ABG Oxyhemoglobin Oxyhemoglobin Sodium Potassium Chloride Carbon Dioxide BUN 23 H Creatinine Glucose 123 H POC Glucose 112 H Lactic Acid Calcium Phosphorus Magnesium AST ALT Lactate Dehydrogenase CK-MB (CK-2) C-Reactive Protein NT-Pro-B Natriuret Pep Total Protein Albumin 3.7 L Urine WBC (Auto) 11/28/19 11/29/19 11/29/19 17:26 03:55 17:04 WBC RBC Hgb Hct MCHC RDW MCH Lymph % (Auto) [place] % (Auto) [place] # Eos # Lymph # (Auto) [place] # (Auto) Eos # (Auto) Seg Neutrophils % Seg Neuts % (Manual) Baso # (Auto) Lymphocytes % (Manual) Monocytes % (Manual) Eosinophils % (Manual) Basophils % (Manual) Seg Neutrophils # Seg Neutrophils # Man Lymphocytes # (Manual) Monocytes # (Manual) Eosinophils # (Manual) Nucleated RBC % Basophils # (Manual) APTT Heparin Anti-Xa Level ABG pH POC ABG pO2 ABG pO2 65.7 L ABG HCO3 28.3 H ABG O2 Saturation 93.9 L ABG Base Excess 3.6 H POC ABG pCO2 ABG Hemoglobin 13.3 L ABG Oxyhemoglobin Oxyhemoglobin 91.5 L Sodium Potassium Chloride Carbon Dioxide BUN Creatinine Glucose POC Glucose 123 H 119 H Lactic Acid Calcium Phosphorus Magnesium AST ALT Lactate Dehydrogenase CK-MB (CK-2) C-Reactive Protein NT-Pro-B Natriuret Pep Total Protein Albumin Urine WBC (Auto) 11/30/19 11/30/19 11/30/19 04:17 04:17 04:56 WBC 13.4 H RBC Hgb Hct MCHC RDW 15.6 H MCH Lymph % (Auto) [place] % (Auto) [place] # Eos # Lymph # (Auto) [place] # (Auto) Eos # (Auto) Seg Neutrophils % Seg Neuts % (Manual) Baso # (Auto) Lymphocytes % (Manual) Monocytes % (Manual) Eosinophils % (Manual) Basophils % (Manual) Seg Neutrophils # Seg Neutrophils # Man Lymphocytes # (Manual) Monocytes # (Manual) Eosinophils # (Manual) Nucleated RBC % Basophils # (Manual) APTT Heparin Anti-Xa Level ABG pH POC ABG pO2 ABG pO2 56.3 L ABG HCO3 29.3 H ABG O2 Saturation 91.5 L ABG Base Excess 4.7 H POC ABG pCO2 ABG Hemoglobin 12.1 L ABG Oxyhemoglobin Oxyhemoglobin 89.2 L Sodium 147 H Potassium Chloride Carbon Dioxide BUN 30 H Creatinine Glucose 124 H POC Glucose Lactic Acid Calcium Phosphorus Magnesium AST ALT Lactate Dehydrogenase CK-MB (CK-2) C-Reactive Protein NT-Pro-B Natriuret Pep Total Protein Albumin 3.8 L Urine WBC (Auto) 11/30/19 11/30/19 11/30/19 05:51 11:54 18:17 WBC RBC Hgb Hct MCHC RDW MCH Lymph % (Auto) [place] % (Auto) [place] # Eos # Lymph # (Auto) [place] # (Auto) Eos # (Auto) Seg Neutrophils % Seg Neuts % (Manual) Baso # (Auto) Lymphocytes % (Manual) Monocytes % (Manual) Eosinophils % (Manual) Basophils % (Manual) Seg Neutrophils # Seg Neutrophils # Man Lymphocytes # (Manual) Monocytes # (Manual) Eosinophils # (Manual) Nucleated RBC % Basophils # (Manual) APTT Heparin Anti-Xa Level ABG pH POC ABG pO2 ABG pO2 ABG HCO3 ABG O2 Saturation ABG Base Excess POC ABG pCO2 ABG Hemoglobin ABG Oxyhemoglobin Oxyhemoglobin Sodium Potassium Chloride Carbon Dioxide BUN Creatinine Glucose POC Glucose 127 H 115 H 143 H Lactic Acid Calcium Phosphorus Magnesium AST ALT Lactate Dehydrogenase CK-MB (CK-2) C-Reactive Protein NT-Pro-B Natriuret Pep Total Protein Albumin Urine WBC (Auto) 12/01/19 12/01/19 12/01/19 01:18 05:22 12:16 WBC RBC Hgb Hct MCHC RDW MCH Lymph % (Auto) [place] % (Auto) [place] # Eos # Lymph # (Auto) [place] # (Auto) Eos # (Auto) Seg Neutrophils % Seg Neuts % (Manual) Baso # (Auto) Lymphocytes % (Manual) Monocytes % (Manual) Eosinophils % (Manual) Basophils % (Manual) Seg Neutrophils # Seg Neutrophils # Man Lymphocytes # (Manual) Monocytes # (Manual) Eosinophils # (Manual) Nucleated RBC % Basophils # (Manual) APTT Heparin Anti-Xa Level ABG pH POC ABG pO2 ABG pO2 ABG HCO3 ABG O2 Saturation ABG Base Excess POC ABG pCO2 ABG Hemoglobin ABG Oxyhemoglobin Oxyhemoglobin Sodium Potassium 3.5 L Chloride 107.8 H Carbon Dioxide BUN 37 H Creatinine Glucose 157 H POC Glucose 118 H 148 H Lactic Acid Calcium 8.2 L D Phosphorus Magnesium AST 48 H ALT 60 H Lactate Dehydrogenase 194 H CK-MB (CK-2) C-Reactive Protein 8.50 H NT-Pro-B Natriuret Pep Total Protein 5.5 L Albumin 2.8 L Urine WBC (Auto) 12/01/19 12/02/19 12/02/19 18:04 00:05 05:16 WBC 11.4 H RBC Hgb Hct MCHC RDW 15.9 H MCH Lymph % (Auto) [place] % (Auto) 9.9 H [place] # 1.1 H Eos # Lymph # (Auto) [place] # (Auto) Eos # (Auto) Seg Neutrophils % 70.3 H Seg Neuts % (Manual) Baso # (Auto) Lymphocytes % (Manual) Monocytes % (Manual) Eosinophils % (Manual) Basophils % (Manual) Seg Neutrophils # 8.0 H Seg Neutrophils # Man Lymphocytes # (Manual) Monocytes # (Manual) Eosinophils # (Manual) Nucleated RBC % Basophils # (Manual) APTT Heparin Anti-Xa Level ABG pH POC ABG pO2 ABG pO2 ABG HCO3 ABG O2 Saturation ABG Base Excess POC ABG pCO2 ABG Hemoglobin ABG Oxyhemoglobin Oxyhemoglobin Sodium Potassium Chloride Carbon Dioxide BUN Creatinine Glucose POC Glucose 143 H 107 H Lactic Acid Calcium Phosphorus Magnesium AST ALT Lactate Dehydrogenase CK-MB (CK-2) C-Reactive Protein NT-Pro-B Natriuret Pep Total Protein Albumin Urine WBC (Auto) 12/02/19 12/02/19 12/02/19 05:16 06:03 11:52 WBC RBC Hgb Hct MCHC RDW MCH Lymph % (Auto) [place] % (Auto) [place] # Eos # Lymph # (Auto) [place] # (Auto) Eos # (Auto) Seg Neutrophils % Seg Neuts % (Manual) Baso # (Auto) Lymphocytes % (Manual) Monocytes % (Manual) Eosinophils % (Manual) Basophils % (Manual) Seg Neutrophils # Seg Neutrophils # Man Lymphocytes # (Manual) Monocytes # (Manual) Eosinophils # (Manual) Nucleated RBC % Basophils # (Manual) APTT Heparin Anti-Xa Level ABG pH POC ABG pO2 ABG pO2 ABG HCO3 ABG O2 Saturation ABG Base Excess POC ABG pCO2 ABG Hemoglobin ABG Oxyhemoglobin Oxyhemoglobin Sodium 146 H Potassium Chloride Carbon Dioxide BUN 28 H Creatinine Glucose 123 H POC Glucose 110 H 152 H Lactic Acid Calcium Phosphorus Magnesium AST ALT Lactate Dehydrogenase CK-MB (CK-2) C-Reactive Protein NT-Pro-B Natriuret Pep Total Protein Albumin Urine WBC (Auto) 12/02/19 12/02/19 12/02/19 12:58 17:58 23:36 WBC RBC Hgb Hct MCHC RDW MCH Lymph % (Auto) [place] % (Auto) [place] # Eos # Lymph # (Auto) [place] # (Auto) Eos # (Auto) Seg Neutrophils % Seg Neuts % (Manual) Baso # (Auto) Lymphocytes % (Manual) Monocytes % (Manual) Eosinophils % (Manual) Basophils % (Manual) Seg Neutrophils # Seg Neutrophils # Man Lymphocytes # (Manual) Monocytes # (Manual) Eosinophils # (Manual) Nucleated RBC % Basophils # (Manual) APTT Heparin Anti-Xa Level ABG pH POC ABG pO2 78.1 L ABG pO2 ABG HCO3 ABG O2 Saturation ABG Base Excess POC ABG pCO2 ABG Hemoglobin ABG Oxyhemoglobin Oxyhemoglobin Sodium Potassium Chloride Carbon Dioxide BUN Creatinine Glucose POC Glucose 120 H 123 H Lactic Acid Calcium Phosphorus Magnesium AST ALT Lactate Dehydrogenase CK-MB (CK-2) C-Reactive Protein NT-Pro-B Natriuret Pep Total Protein Albumin Urine WBC (Auto) 12/03/19 12/03/19 12/03/19 06:03 06:14 11:46 WBC RBC Hgb Hct MCHC RDW MCH Lymph % (Auto) [place] % (Auto) [place] # Eos # Lymph # (Auto) [place] # (Auto) Eos # (Auto) Seg Neutrophils % Seg Neuts % (Manual) Baso # (Auto) Lymphocytes % (Manual) Monocytes % (Manual) Eosinophils % (Manual) Basophils % (Manual) Seg Neutrophils # Seg Neutrophils # Man Lymphocytes # (Manual) Monocytes # (Manual) Eosinophils # (Manual) Nucleated RBC % Basophils # (Manual) APTT Heparin Anti-Xa Level ABG pH POC ABG pO2 ABG pO2 ABG HCO3 ABG O2 Saturation ABG Base Excess POC ABG pCO2 ABG Hemoglobin ABG Oxyhemoglobin Oxyhemoglobin Sodium Potassium Chloride Carbon Dioxide BUN Creatinine Glucose POC Glucose 142 H 130 H Lactic Acid Calcium Phosphorus Magnesium AST ALT Lactate Dehydrogenase CK-MB (CK-2) C-Reactive Protein NT-Pro-B Natriuret Pep Total Protein Albumin Urine WBC (Auto) 8.0 H 12/03/19 12/03/19 12/04/19 15:50 17:39 00:04 WBC RBC Hgb Hct MCHC RDW MCH Lymph % (Auto) [place] % (Auto) [place] # Eos # Lymph # (Auto) [place] # (Auto) Eos # (Auto) Seg Neutrophils % Seg Neuts % (Manual) Baso # (Auto) Lymphocytes % (Manual) Monocytes % (Manual) Eosinophils % (Manual) Basophils % (Manual) Seg Neutrophils # Seg Neutrophils # Man Lymphocytes # (Manual) Monocytes # (Manual) Eosinophils # (Manual) Nucleated RBC % Basophils # (Manual) APTT Heparin Anti-Xa Level ABG pH POC ABG pO2 ABG pO2 ABG HCO3 ABG O2 Saturation ABG Base Excess POC ABG pCO2 ABG Hemoglobin ABG Oxyhemoglobin Oxyhemoglobin Sodium Potassium Chloride Carbon Dioxide BUN Creatinine Glucose POC Glucose 146 H 133 H Lactic Acid Calcium Phosphorus 2.40 L Magnesium AST ALT Lactate Dehydrogenase CK-MB (CK-2) C-Reactive Protein NT-Pro-B Natriuret Pep Total Protein Albumin Urine WBC (Auto) 12/04/19 12/04/19 12/04/19 03:58 03:58 05:22 WBC 12.5 H RBC Hgb 11.2 L Hct 35.2 L MCHC RDW 16.0 H MCH Lymph % (Auto) [place] % (Auto) 9.6 H [place] # 1.2 H Eos # 0.5 H Lymph # (Auto) [place] # (Auto) Eos # (Auto) Seg Neutrophils % Seg Neuts % (Manual) Baso # (Auto) Lymphocytes % (Manual) Monocytes % (Manual) Eosinophils % (Manual) Basophils % (Manual) Seg Neutrophils # 8.6 H Seg Neutrophils # Man Lymphocytes # (Manual) Monocytes # (Manual) Eosinophils # (Manual) Nucleated RBC % Basophils # (Manual) APTT Heparin Anti-Xa Level ABG pH POC ABG pO2 ABG pO2 ABG HCO3 ABG O2 Saturation ABG Base Excess POC ABG pCO2 ABG Hemoglobin ABG Oxyhemoglobin Oxyhemoglobin Sodium 146 H Potassium Chloride 108.6 H Carbon Dioxide BUN 30 H Creatinine 0.7 L Glucose 121 H POC Glucose 132 H Lactic Acid Calcium Phosphorus Magnesium AST ALT Lactate Dehydrogenase CK-MB (CK-2) C-Reactive Protein NT-Pro-B Natriuret Pep Total Protein Albumin Urine WBC (Auto) 12/04/19 12/04/19 12/05/19 13:26 18:43 00:19 WBC RBC Hgb Hct MCHC RDW MCH Lymph % (Auto) [place] % (Auto) [place] # Eos # Lymph # (Auto) [place] # (Auto) Eos # (Auto) Seg Neutrophils % Seg Neuts % (Manual) Baso # (Auto) Lymphocytes % (Manual) Monocytes % (Manual) Eosinophils % (Manual) Basophils % (Manual) Seg Neutrophils # Seg Neutrophils # Man Lymphocytes # (Manual) Monocytes # (Manual) Eosinophils # (Manual) Nucleated RBC % Basophils # (Manual) APTT Heparin Anti-Xa Level ABG pH POC ABG pO2 ABG pO2 ABG HCO3 ABG O2 Saturation ABG Base Excess POC ABG pCO2 ABG Hemoglobin ABG Oxyhemoglobin Oxyhemoglobin Sodium Potassium Chloride Carbon Dioxide BUN Creatinine Glucose POC Glucose 185 H 156 H 150 H Lactic Acid Calcium Phosphorus Magnesium AST ALT Lactate Dehydrogenase CK-MB (CK-2) C-Reactive Protein NT-Pro-B Natriuret Pep Total Protein Albumin Urine WBC (Auto) 12/05/19 12/05/19 12/05/19 03:37 03:37 05:14 WBC 16.3 H RBC Hgb 11.4 L Hct MCHC RDW 15.6 H MCH Lymph % (Auto) 9.9 L [place] % (Auto) 9.7 H [place] # 1.6 H Eos # Lymph # (Auto) [place] # (Auto) Eos # (Auto) Seg Neutrophils % 78.0 H Seg Neuts % (Manual) Baso # (Auto) Lymphocytes % (Manual) Monocytes % (Manual) Eosinophils % (Manual) Basophils % (Manual) Seg Neutrophils # 12.7 H Seg Neutrophils # Man Lymphocytes # (Manual) Monocytes # (Manual) Eosinophils # (Manual) Nucleated RBC % Basophils # (Manual) APTT Heparin Anti-Xa Level ABG pH POC ABG pO2 ABG pO2 ABG HCO3 ABG O2 Saturation ABG Base Excess POC ABG pCO2 ABG Hemoglobin ABG Oxyhemoglobin Oxyhemoglobin Sodium 146 H Potassium Chloride 107.2 H Carbon Dioxide BUN 27 H Creatinine 0.7 L Glucose 171 H POC Glucose 168 H Lactic Acid Calcium Phosphorus Magnesium AST ALT Lactate Dehydrogenase CK-MB (CK-2) C-Reactive Protein NT-Pro-B Natriuret Pep Total Protein Albumin Urine WBC (Auto) 12/05/19 12/05/19 12/05/19 12:31 18:10 23:58 WBC RBC Hgb Hct MCHC RDW MCH Lymph % (Auto) [place] % (Auto) [place] # Eos # Lymph # (Auto) [place] # (Auto) Eos # (Auto) Seg Neutrophils % Seg Neuts % (Manual) Baso # (Auto) Lymphocytes % (Manual) Monocytes % (Manual) Eosinophils % (Manual) Basophils % (Manual) Seg Neutrophils # Seg Neutrophils # Man Lymphocytes # (Manual) Monocytes # (Manual) Eosinophils # (Manual) Nucleated RBC % Basophils # (Manual) APTT Heparin Anti-Xa Level ABG pH POC ABG pO2 ABG pO2 ABG HCO3 ABG O2 Saturation ABG Base Excess POC ABG pCO2 ABG Hemoglobin ABG Oxyhemoglobin Oxyhemoglobin Sodium Potassium Chloride Carbon Dioxide BUN Creatinine Glucose POC Glucose 159 H 198 H 115 H Lactic Acid Calcium Phosphorus Magnesium AST ALT Lactate Dehydrogenase CK-MB (CK-2) C-Reactive Protein NT-Pro-B Natriuret Pep Total Protein Albumin Urine WBC (Auto) 12/06/19 12/06/19 12/06/19 05:24 05:24 05:25 WBC 14.9 H RBC Hgb 10.8 L Hct 34.0 L MCHC RDW 15.6 H MCH Lymph % (Auto) 10.7 L [place] % (Auto) 8.3 H [place] # 1.2 H Eos # Lymph # (Auto) [place] # (Auto) Eos # (Auto) Seg Neutrophils % 78.7 H Seg Neuts % (Manual) Baso # (Auto) Lymphocytes % (Manual) Monocytes % (Manual) Eosinophils % (Manual) Basophils % (Manual) Seg Neutrophils # 11.7 H Seg Neutrophils # Man Lymphocytes # (Manual) Monocytes # (Manual) Eosinophils # (Manual) Nucleated RBC % Basophils # (Manual) APTT Heparin Anti-Xa Level ABG pH POC ABG pO2 ABG pO2 ABG HCO3 ABG O2 Saturation ABG Base Excess POC ABG pCO2 ABG Hemoglobin ABG Oxyhemoglobin Oxyhemoglobin Sodium 148 H Potassium 5.1 H Chloride 107.6 H Carbon Dioxide BUN 27 H Creatinine 0.7 L Glucose 155 H POC Glucose 157 H Lactic Acid Calcium Phosphorus Magnesium AST ALT Lactate Dehydrogenase CK-MB (CK-2) C-Reactive Protein NT-Pro-B Natriuret Pep Total Protein Albumin Urine WBC (Auto) 12/07/19 12/07/19 12/07/19 00:13 05:34 11:33 WBC RBC Hgb Hct MCHC RDW MCH Lymph % (Auto) [place] % (Auto) [place] # Eos # Lymph # (Auto) [place] # (Auto) Eos # (Auto) Seg Neutrophils % Seg Neuts % (Manual) Baso # (Auto) Lymphocytes % (Manual) Monocytes % (Manual) Eosinophils % (Manual) Basophils % (Manual) Seg Neutrophils # Seg Neutrophils # Man Lymphocytes # (Manual) Monocytes # (Manual) Eosinophils # (Manual) Nucleated RBC % Basophils # (Manual) APTT Heparin Anti-Xa Level ABG pH POC ABG pO2 ABG pO2 ABG HCO3 ABG O2 Saturation ABG Base Excess POC ABG pCO2 ABG Hemoglobin ABG Oxyhemoglobin Oxyhemoglobin Sodium Potassium Chloride Carbon Dioxide BUN Creatinine Glucose POC Glucose 142 H 111 H 169 H Lactic Acid Calcium Phosphorus Magnesium AST ALT Lactate Dehydrogenase CK-MB (CK-2) C-Reactive Protein NT-Pro-B Natriuret Pep Total Protein Albumin Urine WBC (Auto) 12/07/19 12/07/19 12/07/19 12:41 13:25 18:19 WBC 12.4 H RBC 3.53 L Hgb 10.2 L Hct 32.1 L MCHC RDW 15.3 H MCH Lymph % (Auto) 10.6 L [place] % (Auto) 7.8 H [place] # 1.0 H Eos # Lymph # (Auto) [place] # (Auto) Eos # (Auto) Seg Neutrophils % 77.6 H Seg Neuts % (Manual) Baso # (Auto) Lymphocytes % (Manual) Monocytes % (Manual) Eosinophils % (Manual) Basophils % (Manual) Seg Neutrophils # 9.6 H Seg Neutrophils # Man Lymphocytes # (Manual) Monocytes # (Manual) Eosinophils # (Manual) Nucleated RBC % Basophils # (Manual) APTT Heparin Anti-Xa Level ABG pH POC ABG pO2 ABG pO2 ABG HCO3 ABG O2 Saturation ABG Base Excess POC ABG pCO2 ABG Hemoglobin ABG Oxyhemoglobin Oxyhemoglobin Sodium 149 H Potassium Chloride 108.4 H Carbon Dioxide BUN 26 H Creatinine 0.6 L Glucose 149 H POC Glucose 164 H Lactic Acid Calcium Phosphorus Magnesium 2.60 H AST 121 H ALT 145 H Lactate Dehydrogenase CK-MB (CK-2) C-Reactive Protein NT-Pro-B Natriuret Pep Total Protein Albumin 2.6 L Urine WBC (Auto) 12/07/19 12/08/19 12/08/19 22:25 00:02 03:55 WBC 13.3 H RBC 3.40 L Hgb 9.7 L Hct 30.8 L MCHC 31 L RDW 15.5 H MCH Lymph % (Auto) [place] % (Auto) 8.1 H [place] # 1.1 H Eos # Lymph # (Auto) [place] # (Auto) Eos # (Auto) Seg Neutrophils % 73.0 H Seg Neuts % (Manual) Baso # (Auto) Lymphocytes % (Manual) Monocytes % (Manual) Eosinophils % (Manual) Basophils % (Manual) Seg Neutrophils # 9.7 H Seg Neutrophils # Man Lymphocytes # (Manual) Monocytes # (Manual) Eosinophils # (Manual) Nucleated RBC % Basophils # (Manual) APTT Heparin Anti-Xa Level 0.12 L ABG pH POC ABG pO2 ABG pO2 ABG HCO3 ABG O2 Saturation ABG Base Excess POC ABG pCO2 ABG Hemoglobin ABG Oxyhemoglobin Oxyhemoglobin Sodium Potassium Chloride Carbon Dioxide BUN Creatinine Glucose POC Glucose 151 H Lactic Acid Calcium Phosphorus Magnesium AST ALT Lactate Dehydrogenase CK-MB (CK-2) C-Reactive Protein NT-Pro-B Natriuret Pep Total Protein Albumin Urine WBC (Auto) 12/08/19 12/08/19 12/08/19 03:55 05:21 06:01 WBC RBC Hgb Hct MCHC RDW MCH Lymph % (Auto) [place] % (Auto) [place] # Eos # Lymph # (Auto) [place] # (Auto) Eos # (Auto) Seg Neutrophils % Seg Neuts % (Manual) Baso # (Auto) Lymphocytes % (Manual) Monocytes % (Manual) Eosinophils % (Manual) Basophils % (Manual) Seg Neutrophils # Seg Neutrophils # Man Lymphocytes # (Manual) Monocytes # (Manual) Eosinophils # (Manual) Nucleated RBC % Basophils # (Manual) APTT Heparin Anti-Xa Level 0.20 L ABG pH POC ABG pO2 ABG pO2 ABG HCO3 ABG O2 Saturation ABG Base Excess POC ABG pCO2 ABG Hemoglobin ABG Oxyhemoglobin Oxyhemoglobin Sodium 149 H Potassium Chloride 108.0 H Carbon Dioxide BUN 28 H Creatinine 0.6 L Glucose 144 H POC Glucose 143 H Lactic Acid Calcium Phosphorus Magnesium AST 98 H ALT 145 H Lactate Dehydrogenase CK-MB (CK-2) C-Reactive Protein NT-Pro-B Natriuret Pep Total Protein 6.0 L Albumin 2.4 L Urine WBC (Auto) 12/08/19 12/08/19 12/08/19 12:08 18:11 23:53 WBC RBC Hgb Hct MCHC RDW MCH Lymph % (Auto) [place] % (Auto) [place] # Eos # Lymph # (Auto) [place] # (Auto) Eos # (Auto) Seg Neutrophils % Seg Neuts % (Manual) Baso # (Auto) Lymphocytes % (Manual) Monocytes % (Manual) Eosinophils % (Manual) Basophils % (Manual) Seg Neutrophils # Seg Neutrophils # Man Lymphocytes # (Manual) Monocytes # (Manual) Eosinophils # (Manual) Nucleated RBC % Basophils # (Manual) APTT Heparin Anti-Xa Level ABG pH POC ABG pO2 ABG pO2 ABG HCO3 ABG O2 Saturation ABG Base Excess POC ABG pCO2 ABG Hemoglobin ABG Oxyhemoglobin Oxyhemoglobin Sodium Potassium Chloride Carbon Dioxide BUN Creatinine Glucose POC Glucose 172 H 122 H 162 H Lactic Acid Calcium Phosphorus Magnesium AST ALT Lactate Dehydrogenase CK-MB (CK-2) C-Reactive Protein NT-Pro-B Natriuret Pep Total Protein Albumin Urine WBC (Auto) 12/09/19 12/09/19 12/09/19 04:03 04:03 05:53 WBC RBC Hgb 9.1 L Hct 28.9 L MCHC RDW MCH Lymph % (Auto) [place] % (Auto) [place] # Eos # Lymph # (Auto) [place] # (Auto) Eos # (Auto) Seg Neutrophils % Seg Neuts % (Manual) Baso # (Auto) Lymphocytes % (Manual) Monocytes % (Manual) Eosinophils % (Manual) Basophils % (Manual) Seg Neutrophils # Seg Neutrophils # Man Lymphocytes # (Manual) Monocytes # (Manual) Eosinophils # (Manual) Nucleated RBC % Basophils # (Manual) APTT Heparin Anti-Xa Level 0.15 L ABG pH POC ABG pO2 ABG pO2 ABG HCO3 ABG O2 Saturation ABG Base Excess POC ABG pCO2 ABG Hemoglobin ABG Oxyhemoglobin Oxyhemoglobin Sodium Potassium Chloride Carbon Dioxide BUN Creatinine Glucose POC Glucose 124 H Lactic Acid Calcium Phosphorus Magnesium AST ALT Lactate Dehydrogenase CK-MB (CK-2) C-Reactive Protein NT-Pro-B Natriuret Pep Total Protein Albumin Urine WBC (Auto) 12/09/19 12/09/19 12/10/19 09:43 12:41 00:13 WBC RBC Hgb Hct MCHC RDW MCH Lymph % (Auto) [place] % (Auto) [place] # Eos # Lymph # (Auto) [place] # (Auto) Eos # (Auto) Seg Neutrophils % Seg Neuts % (Manual) Baso # (Auto) Lymphocytes % (Manual) Monocytes % (Manual) Eosinophils % (Manual) Basophils % (Manual) Seg Neutrophils # Seg Neutrophils # Man Lymphocytes # (Manual) Monocytes # (Manual) Eosinophils # (Manual) Nucleated RBC % Basophils # (Manual) APTT Heparin Anti-Xa Level ABG pH POC ABG pO2 ABG pO2 ABG HCO3 ABG O2 Saturation ABG Base Excess POC ABG pCO2 ABG Hemoglobin ABG Oxyhemoglobin Oxyhemoglobin Sodium Potassium Chloride Carbon Dioxide BUN 25 H Creatinine 0.6 L Glucose 131 H POC Glucose 109 H 120 H Lactic Acid Calcium Phosphorus Magnesium AST ALT Lactate Dehydrogenase CK-MB (CK-2) C-Reactive Protein NT-Pro-B Natriuret Pep Total Protein Albumin Urine WBC (Auto) 12/10/19 12/10/19 12/10/19 04:14 04:14 12:00 WBC 13.3 H RBC 3.34 L Hgb 9.6 L Hct 30.4 L MCHC RDW 15.4 H MCH Lymph % (Auto) [place] % (Auto) [place] # Eos # Lymph # (Auto) [place] # (Auto) Eos # (Auto) Seg Neutrophils % Seg Neuts % (Manual) 75.0 H Baso # (Auto) Lymphocytes % (Manual) 13.0 L Monocytes % (Manual) 8.0 H Eosinophils % (Manual) Basophils % (Manual) 2.0 H Seg Neutrophils # Seg Neutrophils # Man 10.0 H Lymphocytes # (Manual) Monocytes # (Manual) 1.1 H Eosinophils # (Manual) Nucleated RBC % Basophils # (Manual) 0.3 H APTT Heparin Anti-Xa Level ABG pH POC ABG pO2 ABG pO2 ABG HCO3 ABG O2 Saturation ABG Base Excess POC ABG pCO2 ABG Hemoglobin ABG Oxyhemoglobin Oxyhemoglobin Sodium 147 H Potassium Chloride 108.3 H Carbon Dioxide BUN 21 H Creatinine 0.6 L Glucose 104 H POC Glucose 133 H Lactic Acid Calcium Phosphorus Magnesium AST ALT Lactate Dehydrogenase CK-MB (CK-2) C-Reactive Protein NT-Pro-B Natriuret Pep Total Protein Albumin Urine WBC (Auto) 12/10/19 12/10/19 12/11/19 18:44 21:20 00:08 WBC 14.9 H RBC 3.36 L Hgb 9.6 L Hct 30.5 L MCHC RDW 15.4 H MCH Lymph % (Auto) [place] % (Auto) [place] # Eos # Lymph # (Auto) [place] # (Auto) Eos # (Auto) Seg Neutrophils % Seg Neuts % (Manual) Baso # (Auto) Lymphocytes % (Manual) Monocytes % (Manual) Eosinophils % (Manual) Basophils % (Manual) Seg Neutrophils # Seg Neutrophils # Man Lymphocytes # (Manual) Monocytes # (Manual) Eosinophils # (Manual) Nucleated RBC % Basophils # (Manual) APTT Heparin Anti-Xa Level ABG pH POC ABG pO2 ABG pO2 ABG HCO3 ABG O2 Saturation ABG Base Excess POC ABG pCO2 ABG Hemoglobin ABG Oxyhemoglobin Oxyhemoglobin Sodium Potassium Chloride Carbon Dioxide BUN Creatinine Glucose POC Glucose 119 H 134 H Lactic Acid Calcium Phosphorus Magnesium AST ALT Lactate Dehydrogenase CK-MB (CK-2) C-Reactive Protein NT-Pro-B Natriuret Pep Total Protein Albumin Urine WBC (Auto) 12/11/19 12/11/19 12/11/19 03:54 07:28 08:36 WBC 11.9 H RBC 3.25 L Hgb 9.6 L Hct 29.2 L MCHC RDW 15.7 H MCH Lymph % (Auto) [place] % (Auto) [place] # Eos # Lymph # (Auto) [place] # (Auto) Eos # (Auto) Seg Neutrophils % Seg Neuts % (Manual) Baso # (Auto) Lymphocytes % (Manual) Monocytes % (Manual) Eosinophils % (Manual) Basophils % (Manual) Seg Neutrophils # Seg Neutrophils # Man Lymphocytes # (Manual) Monocytes # (Manual) Eosinophils # (Manual) Nucleated RBC % Basophils # (Manual) APTT Heparin Anti-Xa Level 0.10 L 0.16 L ABG pH POC ABG pO2 ABG pO2 ABG HCO3 ABG O2 Saturation ABG Base Excess POC ABG pCO2 ABG Hemoglobin ABG Oxyhemoglobin Oxyhemoglobin Sodium Potassium Chloride Carbon Dioxide BUN Creatinine Glucose POC Glucose Lactic Acid Calcium Phosphorus Magnesium AST ALT Lactate Dehydrogenase CK-MB (CK-2) C-Reactive Protein NT-Pro-B Natriuret Pep Total Protein Albumin Urine WBC (Auto) 12/11/19 12/11/19 12/11/19 08:36 11:45 17:15 WBC RBC Hgb Hct MCHC RDW MCH Lymph % (Auto) [place] % (Auto) [place] # Eos # Lymph # (Auto) [place] # (Auto) Eos # (Auto) Seg Neutrophils % Seg Neuts % (Manual) Baso # (Auto) Lymphocytes % (Manual) Monocytes % (Manual) Eosinophils % (Manual) Basophils % (Manual) Seg Neutrophils # Seg Neutrophils # Man Lymphocytes # (Manual) Monocytes # (Manual) Eosinophils # (Manual) Nucleated RBC % Basophils # (Manual) APTT Heparin Anti-Xa Level ABG pH POC ABG pO2 ABG pO2 ABG HCO3 ABG O2 Saturation ABG Base Excess POC ABG pCO2 ABG Hemoglobin ABG Oxyhemoglobin Oxyhemoglobin Sodium Potassium Chloride Carbon Dioxide BUN Creatinine 0.5 L Glucose 128 H POC Glucose 136 H 109 H Lactic Acid Calcium Phosphorus Magnesium AST ALT Lactate Dehydrogenase CK-MB (CK-2) C-Reactive Protein NT-Pro-B Natriuret Pep Total Protein Albumin Urine WBC (Auto) 12/12/19 12/12/19 12/12/19 00:03 05:53 05:53 WBC RBC Hgb 8.8 L Hct 27.6 L MCHC RDW MCH Lymph % (Auto) [place] % (Auto) [place] # Eos # Lymph # (Auto) [place] # (Auto) Eos # (Auto) Seg Neutrophils % Seg Neuts % (Manual) Baso # (Auto) Lymphocytes % (Manual) Monocytes % (Manual) Eosinophils % (Manual) Basophils % (Manual) Seg Neutrophils # Seg Neutrophils # Man Lymphocytes # (Manual) Monocytes # (Manual) Eosinophils # (Manual) Nucleated RBC % Basophils # (Manual) APTT Heparin Anti-Xa Level 0.22 L ABG pH POC ABG pO2 ABG pO2 ABG HCO3 ABG O2 Saturation ABG Base Excess POC ABG pCO2 ABG Hemoglobin ABG Oxyhemoglobin Oxyhemoglobin Sodium Potassium Chloride Carbon Dioxide BUN Creatinine Glucose POC Glucose 116 H Lactic Acid Calcium Phosphorus Magnesium AST ALT Lactate Dehydrogenase CK-MB (CK-2) C-Reactive Protein NT-Pro-B Natriuret Pep Total Protein Albumin Urine WBC (Auto) 12/12/19 12/12/19 12/12/19 09:38 12:18 17:44 WBC RBC Hgb Hct MCHC RDW MCH Lymph % (Auto) [place] % (Auto) [place] # Eos # Lymph # (Auto) [place] # (Auto) Eos # (Auto) Seg Neutrophils % Seg Neuts % (Manual) Baso # (Auto) Lymphocytes % (Manual) Monocytes % (Manual) Eosinophils % (Manual) Basophils % (Manual) Seg Neutrophils # Seg Neutrophils # Man Lymphocytes # (Manual) Monocytes # (Manual) Eosinophils # (Manual) Nucleated RBC % Basophils # (Manual) APTT Heparin Anti-Xa Level ABG pH POC ABG pO2 ABG pO2 ABG HCO3 ABG O2 Saturation ABG Base Excess POC ABG pCO2 ABG Hemoglobin ABG Oxyhemoglobin Oxyhemoglobin Sodium Potassium Chloride Carbon Dioxide BUN Creatinine Glucose POC Glucose 115 H 146 H 146 H Lactic Acid Calcium Phosphorus Magnesium AST ALT Lactate Dehydrogenase CK-MB (CK-2) C-Reactive Protein NT-Pro-B Natriuret Pep Total Protein Albumin Urine WBC (Auto) 12/12/19 12/13/19 12/13/19 23:33 05:32 05:32 WBC 13.1 H RBC 3.27 L Hgb 9.5 L Hct 29.3 L MCHC RDW 15.6 H MCH Lymph % (Auto) [place] % (Auto) [place] # Eos # Lymph # (Auto) [place] # (Auto) Eos # (Auto) Seg Neutrophils % Seg Neuts % (Manual) 74.0 H Baso # (Auto) Lymphocytes % (Manual) 8.0 L Monocytes % (Manual) 9.0 H Eosinophils % (Manual) 5.0 H Basophils % (Manual) Seg Neutrophils # Seg Neutrophils # Man 9.7 H Lymphocytes # (Manual) 1.0 L Monocytes # (Manual) 1.2 H Eosinophils # (Manual) 0.7 H Nucleated RBC % Basophils # (Manual) APTT Heparin Anti-Xa Level 0.20 L ABG pH POC ABG pO2 ABG pO2 ABG HCO3 ABG O2 Saturation ABG Base Excess POC ABG pCO2 ABG Hemoglobin ABG Oxyhemoglobin Oxyhemoglobin Sodium Potassium Chloride Carbon Dioxide BUN Creatinine Glucose POC Glucose 126 H Lactic Acid Calcium Phosphorus Magnesium AST ALT Lactate Dehydrogenase CK-MB (CK-2) C-Reactive Protein NT-Pro-B Natriuret Pep Total Protein Albumin Urine WBC (Auto) 12/13/19 12/13/19 12/13/19 05:32 05:46 11:57 WBC RBC Hgb Hct MCHC RDW MCH Lymph % (Auto) [place] % (Auto) [place] # Eos # Lymph # (Auto) [place] # (Auto) Eos # (Auto) Seg Neutrophils % Seg Neuts % (Manual) Baso # (Auto) Lymphocytes % (Manual) Monocytes % (Manual) Eosinophils % (Manual) Basophils % (Manual) Seg Neutrophils # Seg Neutrophils # Man Lymphocytes # (Manual) Monocytes # (Manual) Eosinophils # (Manual) Nucleated RBC % Basophils # (Manual) APTT Heparin Anti-Xa Level ABG pH POC ABG pO2 ABG pO2 ABG HCO3 ABG O2 Saturation ABG Base Excess POC ABG pCO2 ABG Hemoglobin ABG Oxyhemoglobin Oxyhemoglobin Sodium Potassium Chloride Carbon Dioxide 31 H BUN Creatinine 0.6 L Glucose 114 H POC Glucose 118 H 133 H Lactic Acid Calcium Phosphorus Magnesium AST ALT Lactate Dehydrogenase CK-MB (CK-2) C-Reactive Protein NT-Pro-B Natriuret Pep Total Protein Albumin Urine WBC (Auto) 12/13/19 12/13/19 12/14/19 17:44 23:46 05:32 WBC RBC Hgb Hct MCHC RDW MCH Lymph % (Auto) [place] % (Auto) [place] # Eos # Lymph # (Auto) [place] # (Auto) Eos # (Auto) Seg Neutrophils % Seg Neuts % (Manual) Baso # (Auto) Lymphocytes % (Manual) Monocytes % (Manual) Eosinophils % (Manual) Basophils % (Manual) Seg Neutrophils # Seg Neutrophils # Man Lymphocytes # (Manual) Monocytes # (Manual) Eosinophils # (Manual) Nucleated RBC % Basophils # (Manual) APTT Heparin Anti-Xa Level ABG pH POC ABG pO2 ABG pO2 ABG HCO3 ABG O2 Saturation ABG Base Excess POC ABG pCO2 ABG Hemoglobin ABG Oxyhemoglobin Oxyhemoglobin Sodium Potassium Chloride Carbon Dioxide BUN Creatinine Glucose POC Glucose 161 H 126 H 139 H Lactic Acid Calcium Phosphorus Magnesium AST ALT Lactate Dehydrogenase CK-MB (CK-2) C-Reactive Protein NT-Pro-B Natriuret Pep Total Protein Albumin Urine WBC (Auto) 12/14/19 12/14/19 12/14/19 06:03 06:03 09:37 WBC RBC Hgb 9.6 L Hct 30.4 L MCHC RDW MCH Lymph % (Auto) [place] % (Auto) [place] # Eos # Lymph # (Auto) [place] # (Auto) Eos # (Auto) Seg Neutrophils % Seg Neuts % (Manual) Baso # (Auto) Lymphocytes % (Manual) Monocytes % (Manual) Eosinophils % (Manual) Basophils % (Manual) Seg Neutrophils # Seg Neutrophils # Man Lymphocytes # (Manual) Monocytes # (Manual) Eosinophils # (Manual) Nucleated RBC % Basophils # (Manual) APTT Heparin Anti-Xa Level 0.24 L ABG pH POC ABG pO2 ABG pO2 ABG HCO3 ABG O2 Saturation ABG Base Excess POC ABG pCO2 ABG Hemoglobin ABG Oxyhemoglobin Oxyhemoglobin Sodium Potassium Chloride Carbon Dioxide BUN Creatinine 0.6 L Glucose 162 H POC Glucose Lactic Acid Calcium Phosphorus Magnesium AST 71 H ALT 118 H Lactate Dehydrogenase CK-MB (CK-2) C-Reactive Protein NT-Pro-B Natriuret Pep Total Protein 6.2 L Albumin 2.3 L Urine WBC (Auto) 12/14/19 12/14/19 12/15/19 12:06 18:18 00:19 WBC RBC Hgb Hct MCHC RDW MCH Lymph % (Auto) [place] % (Auto) [place] # Eos # Lymph # (Auto) [place] # (Auto) Eos # (Auto) Seg Neutrophils % Seg Neuts % (Manual) Baso # (Auto) Lymphocytes % (Manual) Monocytes % (Manual) Eosinophils % (Manual) Basophils % (Manual) Seg Neutrophils # Seg Neutrophils # Man Lymphocytes # (Manual) Monocytes # (Manual) Eosinophils # (Manual) Nucleated RBC % Basophils # (Manual) APTT Heparin Anti-Xa Level ABG pH POC ABG pO2 ABG pO2 ABG HCO3 ABG O2 Saturation ABG Base Excess POC ABG pCO2 ABG Hemoglobin ABG Oxyhemoglobin Oxyhemoglobin Sodium Potassium Chloride Carbon Dioxide BUN Creatinine Glucose POC Glucose 147 H 166 H 123 H Lactic Acid Calcium Phosphorus Magnesium AST ALT Lactate Dehydrogenase CK-MB (CK-2) C-Reactive Protein NT-Pro-B Natriuret Pep Total Protein Albumin Urine WBC (Auto) 12/15/19 12/15/19 12/15/19 05:28 05:29 05:29 WBC 14.9 H RBC 3.19 L Hgb 9.1 L Hct 28.7 L MCHC RDW 16.0 H MCH Lymph % (Auto) [place] % (Auto) [place] # Eos # Lymph # (Auto) [place] # (Auto) Eos # (Auto) Seg Neutrophils % Seg Neuts % (Manual) Baso # (Auto) Lymphocytes % (Manual) Monocytes % (Manual) Eosinophils % (Manual) Basophils % (Manual) Seg Neutrophils # Seg Neutrophils # Man Lymphocytes # (Manual) Monocytes # (Manual) Eosinophils # (Manual) Nucleated RBC % Basophils # (Manual) APTT Heparin Anti-Xa Level 0.19 L ABG pH POC ABG pO2 ABG pO2 ABG HCO3 ABG O2 Saturation ABG Base Excess POC ABG pCO2 ABG Hemoglobin ABG Oxyhemoglobin Oxyhemoglobin Sodium Potassium Chloride Carbon Dioxide BUN Creatinine 0.6 L Glucose 110 H POC Glucose Lactic Acid Calcium Phosphorus Magnesium AST ALT Lactate Dehydrogenase CK-MB (CK-2) C-Reactive Protein NT-Pro-B Natriuret Pep Total Protein Albumin Urine WBC (Auto) 12/15/19 12/15/19 12/15/19 05:53 11:50 17:26 WBC RBC Hgb Hct MCHC RDW MCH Lymph % (Auto) [place] % (Auto) [place] # Eos # Lymph # (Auto) [place] # (Auto) Eos # (Auto) Seg Neutrophils % Seg Neuts % (Manual) Baso # (Auto) Lymphocytes % (Manual) Monocytes % (Manual) Eosinophils % (Manual) Basophils % (Manual) Seg Neutrophils # Seg Neutrophils # Man Lymphocytes # (Manual) Monocytes # (Manual) Eosinophils # (Manual) Nucleated RBC % Basophils # (Manual) APTT Heparin Anti-Xa Level ABG pH POC ABG pO2 ABG pO2 ABG HCO3 ABG O2 Saturation ABG Base Excess POC ABG pCO2 ABG Hemoglobin ABG Oxyhemoglobin Oxyhemoglobin Sodium Potassium Chloride Carbon Dioxide BUN Creatinine Glucose POC Glucose 119 H 132 H 128 H Lactic Acid Calcium Phosphorus Magnesium AST ALT Lactate Dehydrogenase CK-MB (CK-2) C-Reactive Protein NT-Pro-B Natriuret Pep Total Protein Albumin Urine WBC (Auto) 12/15/19 12/16/19 12/16/19 23:11 05:30 05:46 WBC RBC Hgb 8.8 L Hct 27.9 L MCHC RDW MCH Lymph % (Auto) [place] % (Auto) [place] # Eos # Lymph # (Auto) [place] # (Auto) Eos # (Auto) Seg Neutrophils % Seg Neuts % (Manual) Baso # (Auto) Lymphocytes % (Manual) Monocytes % (Manual) Eosinophils % (Manual) Basophils % (Manual) Seg Neutrophils # Seg Neutrophils # Man Lymphocytes # (Manual) Monocytes # (Manual) Eosinophils # (Manual) Nucleated RBC % Basophils # (Manual) APTT Heparin Anti-Xa Level ABG pH POC ABG pO2 ABG pO2 ABG HCO3 ABG O2 Saturation ABG Base Excess POC ABG pCO2 ABG Hemoglobin ABG Oxyhemoglobin Oxyhemoglobin Sodium Potassium Chloride Carbon Dioxide BUN Creatinine Glucose POC Glucose 150 H 134 H Lactic Acid Calcium Phosphorus Magnesium AST ALT Lactate Dehydrogenase CK-MB (CK-2) C-Reactive Protein NT-Pro-B Natriuret Pep Total Protein Albumin Urine WBC (Auto) 12/16/19 12/16/19 12/16/19 05:46 05:46 11:44 WBC RBC Hgb Hct MCHC RDW MCH Lymph % (Auto) [place] % (Auto) [place] # Eos # Lymph # (Auto) [place] # (Auto) Eos # (Auto) Seg Neutrophils % Seg Neuts % (Manual) Baso # (Auto) Lymphocytes % (Manual) Monocytes % (Manual) Eosinophils % (Manual) Basophils % (Manual) Seg Neutrophils # Seg Neutrophils # Man Lymphocytes # (Manual) Monocytes # (Manual) Eosinophils # (Manual) Nucleated RBC % Basophils # (Manual) APTT Heparin Anti-Xa Level 0.20 L ABG pH POC ABG pO2 ABG pO2 ABG HCO3 ABG O2 Saturation ABG Base Excess POC ABG pCO2 ABG Hemoglobin ABG Oxyhemoglobin Oxyhemoglobin Sodium Potassium Chloride Carbon Dioxide 31 H BUN Creatinine 0.5 L Glucose 147 H POC Glucose 164 H Lactic Acid Calcium Phosphorus Magnesium AST ALT Lactate Dehydrogenase CK-MB (CK-2) C-Reactive Protein NT-Pro-B Natriuret Pep Total Protein Albumin Urine WBC (Auto) 12/16/19 12/16/19 12/17/19 17:17 23:49 05:30 WBC 13.9 H RBC 3.27 L Hgb 9.4 L Hct 29.2 L MCHC RDW 16.0 H MCH Lymph % (Auto) [place] % (Auto) 8.8 H [place] # Eos # Lymph # (Auto) [place] # (Auto) 1.2 H Eos # (Auto) 0.5 H Seg Neutrophils % 70.5 H Seg Neuts % (Manual) Baso # (Auto) 0.2 H Lymphocytes % (Manual) Monocytes % (Manual) Eosinophils % (Manual) Basophils % (Manual) Seg Neutrophils # 9.8 H Seg Neutrophils # Man Lymphocytes # (Manual) Monocytes # (Manual) Eosinophils # (Manual) Nucleated RBC % Basophils # (Manual) APTT Heparin Anti-Xa Level ABG pH POC ABG pO2 ABG pO2 ABG HCO3 ABG O2 Saturation ABG Base Excess POC ABG pCO2 ABG Hemoglobin ABG Oxyhemoglobin Oxyhemoglobin Sodium Potassium Chloride Carbon Dioxide BUN Creatinine Glucose POC Glucose 162 H 144 H Lactic Acid Calcium Phosphorus Magnesium AST ALT Lactate Dehydrogenase CK-MB (CK-2) C-Reactive Protein NT-Pro-B Natriuret Pep Total Protein Albumin Urine WBC (Auto) 12/17/19 12/17/19 12/17/19 05:30 06:06 11:50 WBC RBC Hgb Hct MCHC RDW MCH Lymph % (Auto) [place] % (Auto) [place] # Eos # Lymph # (Auto) [place] # (Auto) Eos # (Auto) Seg Neutrophils % Seg Neuts % (Manual) Baso # (Auto) Lymphocytes % (Manual) Monocytes % (Manual) Eosinophils % (Manual) Basophils % (Manual) Seg Neutrophils # Seg Neutrophils # Man Lymphocytes # (Manual) Monocytes # (Manual) Eosinophils # (Manual) Nucleated RBC % Basophils # (Manual) APTT Heparin Anti-Xa Level ABG pH POC ABG pO2 ABG pO2 ABG HCO3 ABG O2 Saturation ABG Base Excess POC ABG pCO2 ABG Hemoglobin ABG Oxyhemoglobin Oxyhemoglobin Sodium Potassium Chloride 97.4 L Carbon Dioxide 32 H BUN Creatinine 0.5 L Glucose 135 H POC Glucose 151 H 140 H Lactic Acid Calcium Phosphorus Magnesium AST ALT Lactate Dehydrogenase CK-MB (CK-2) C-Reactive Protein NT-Pro-B Natriuret Pep Total Protein Albumin Urine WBC (Auto) 12/17/19 12/17/19 12/18/19 17:50 23:46 05:17 WBC RBC Hgb 8.8 L Hct 28.0 L MCHC RDW MCH Lymph % (Auto) [place] % (Auto) [place] # Eos # Lymph # (Auto) [place] # (Auto) Eos # (Auto) Seg Neutrophils % Seg Neuts % (Manual) Baso # (Auto) Lymphocytes % (Manual) Monocytes % (Manual) Eosinophils % (Manual) Basophils % (Manual) Seg Neutrophils # Seg Neutrophils # Man Lymphocytes # (Manual) Monocytes # (Manual) Eosinophils # (Manual) Nucleated RBC % Basophils # (Manual) APTT Heparin Anti-Xa Level ABG pH POC ABG pO2 ABG pO2 ABG HCO3 ABG O2 Saturation ABG Base Excess POC ABG pCO2 ABG Hemoglobin ABG Oxyhemoglobin Oxyhemoglobin Sodium Potassium Chloride Carbon Dioxide BUN Creatinine Glucose POC Glucose 158 H 150 H Lactic Acid Calcium Phosphorus Magnesium AST ALT Lactate Dehydrogenase CK-MB (CK-2) C-Reactive Protein NT-Pro-B Natriuret Pep Total Protein Albumin Urine WBC (Auto) 12/18/19 12/18/19 12/18/19 05:17 05:49 11:12 WBC RBC Hgb Hct MCHC RDW MCH Lymph % (Auto) [place] % (Auto) [place] # Eos # Lymph # (Auto) [place] # (Auto) Eos # (Auto) Seg Neutrophils % Seg Neuts % (Manual) Baso # (Auto) Lymphocytes % (Manual) Monocytes % (Manual) Eosinophils % (Manual) Basophils % (Manual) Seg Neutrophils # Seg Neutrophils # Man Lymphocytes # (Manual) Monocytes # (Manual) Eosinophils # (Manual) Nucleated RBC % Basophils # (Manual) APTT Heparin Anti-Xa Level 0.16 L ABG pH POC ABG pO2 ABG pO2 ABG HCO3 ABG O2 Saturation ABG Base Excess POC ABG pCO2 ABG Hemoglobin ABG Oxyhemoglobin Oxyhemoglobin Sodium Potassium Chloride Carbon Dioxide BUN Creatinine Glucose POC Glucose 127 H 191 H Lactic Acid Calcium Phosphorus Magnesium AST ALT Lactate Dehydrogenase CK-MB (CK-2) C-Reactive Protein NT-Pro-B Natriuret Pep Total Protein Albumin Urine WBC (Auto) 12/18/19 12/18/19 12/19/19 17:03 20:16 00:08 WBC RBC Hgb Hct MCHC RDW MCH Lymph % (Auto) [place] % (Auto) [place] # Eos # Lymph # (Auto) [place] # (Auto) Eos # (Auto) Seg Neutrophils % Seg Neuts % (Manual) Baso # (Auto) Lymphocytes % (Manual) Monocytes % (Manual) Eosinophils % (Manual) Basophils % (Manual) Seg Neutrophils # Seg Neutrophils # Man Lymphocytes # (Manual) Monocytes # (Manual) Eosinophils # (Manual) Nucleated RBC % Basophils # (Manual) APTT Heparin Anti-Xa Level ABG pH POC ABG pO2 ABG pO2 ABG HCO3 ABG O2 Saturation ABG Base Excess POC ABG pCO2 ABG Hemoglobin ABG Oxyhemoglobin Oxyhemoglobin Sodium Potassium Chloride Carbon Dioxide BUN Creatinine Glucose POC Glucose 133 H 128 H 129 H Lactic Acid Calcium Phosphorus Magnesium AST ALT Lactate Dehydrogenase CK-MB (CK-2) C-Reactive Protein NT-Pro-B Natriuret Pep Total Protein Albumin Urine WBC (Auto) 12/19/19 12/19/19 12/19/19 04:45 04:45 05:35 WBC RBC Hgb Hct MCHC RDW MCH Lymph % (Auto) [place] % (Auto) [place] # Eos # Lymph # (Auto) [place] # (Auto) Eos # (Auto) Seg Neutrophils % Seg Neuts % (Manual) Baso # (Auto) Lymphocytes % (Manual) Monocytes % (Manual) Eosinophils % (Manual) Basophils % (Manual) Seg Neutrophils # Seg Neutrophils # Man Lymphocytes # (Manual) Monocytes # (Manual) Eosinophils # (Manual) Nucleated RBC % Basophils # (Manual) APTT Heparin Anti-Xa Level 0.17 L ABG pH POC ABG pO2 ABG pO2 ABG HCO3 ABG O2 Saturation ABG Base Excess POC ABG pCO2 ABG Hemoglobin ABG Oxyhemoglobin Oxyhemoglobin Sodium Potassium Chloride Carbon Dioxide BUN Creatinine Glucose POC Glucose 120 H Lactic Acid Calcium Phosphorus Magnesium AST ALT Lactate Dehydrogenase 228 H CK-MB (CK-2) C-Reactive Protein NT-Pro-B Natriuret Pep Total Protein Albumin Urine WBC (Auto) 12/19/19 12/19/19 12/19/19 09:20 11:32 11:32 WBC 14.6 H RBC 3.08 L Hgb 9.0 L Hct 26.8 L MCHC RDW 15.9 H MCH Lymph % (Auto) [place] % (Auto) [place] # Eos # Lymph # (Auto) [place] # (Auto) Eos # (Auto) Seg Neutrophils % Seg Neuts % (Manual) 82.0 H Baso # (Auto) Lymphocytes % (Manual) 10.0 L Monocytes % (Manual) Eosinophils % (Manual) Basophils % (Manual) Seg Neutrophils # Seg Neutrophils # Man 12.0 H Lymphocytes # (Manual) Monocytes # (Manual) 0.9 H Eosinophils # (Manual) Nucleated RBC % 1.0 H Basophils # (Manual) APTT Heparin Anti-Xa Level ABG pH 7.451 H POC ABG pO2 ABG pO2 62.6 L ABG HCO3 33.2 H ABG O2 Saturation 93.8 L ABG Base Excess 8.3 H POC ABG pCO2 ABG Hemoglobin 8.3 L ABG Oxyhemoglobin Oxyhemoglobin 91.9 L Sodium Potassium Chloride 95.0 L Carbon Dioxide 33 H BUN 22 H Creatinine 0.6 L Glucose 150 H POC Glucose Lactic Acid Calcium Phosphorus Magnesium AST ALT Lactate Dehydrogenase CK-MB (CK-2) C-Reactive Protein NT-Pro-B Natriuret Pep Total Protein 6.2 L Albumin 2.4 L Urine WBC (Auto) 12/19/19 12/19/19 12/20/19 11:56 18:17 00:09 WBC RBC Hgb Hct MCHC RDW MCH Lymph % (Auto) [place] % (Auto) [place] # Eos # Lymph # (Auto) [place] # (Auto) Eos # (Auto) Seg Neutrophils % Seg Neuts % (Manual) Baso # (Auto) Lymphocytes % (Manual) Monocytes % (Manual) Eosinophils % (Manual) Basophils % (Manual) Seg Neutrophils # Seg Neutrophils # Man Lymphocytes # (Manual) Monocytes # (Manual) Eosinophils # (Manual) Nucleated RBC % Basophils # (Manual) APTT Heparin Anti-Xa Level ABG pH POC ABG pO2 ABG pO2 ABG HCO3 ABG O2 Saturation ABG Base Excess POC ABG pCO2 ABG Hemoglobin ABG Oxyhemoglobin Oxyhemoglobin Sodium Potassium Chloride Carbon Dioxide BUN Creatinine Glucose POC Glucose 156 H 156 H 155 H Lactic Acid Calcium Phosphorus Magnesium AST ALT Lactate Dehydrogenase CK-MB (CK-2) C-Reactive Protein NT-Pro-B Natriuret Pep Total Protein Albumin Urine WBC (Auto) 12/20/19 12/20/19 12/20/19 05:26 06:02 18:17 WBC RBC Hgb Hct MCHC RDW MCH Lymph % (Auto) [place] % (Auto) [place] # Eos # Lymph # (Auto) [place] # (Auto) Eos # (Auto) Seg Neutrophils % Seg Neuts % (Manual) Baso # (Auto) Lymphocytes % (Manual) Monocytes % (Manual) Eosinophils % (Manual) Basophils % (Manual) Seg Neutrophils # Seg Neutrophils # Man Lymphocytes # (Manual) Monocytes # (Manual) Eosinophils # (Manual) Nucleated RBC % Basophils # (Manual) APTT Heparin Anti-Xa Level 0.19 L ABG pH POC ABG pO2 ABG pO2 ABG HCO3 ABG O2 Saturation ABG Base Excess POC ABG pCO2 ABG Hemoglobin ABG Oxyhemoglobin Oxyhemoglobin Sodium Potassium Chloride Carbon Dioxide BUN Creatinine Glucose POC Glucose 137 H 128 H Lactic Acid Calcium Phosphorus Magnesium AST ALT Lactate Dehydrogenase CK-MB (CK-2) C-Reactive Protein NT-Pro-B Natriuret Pep Total Protein Albumin Urine WBC (Auto) 12/20/19 12/21/19 12/21/19 23:34 05:31 05:31 WBC 12.7 H RBC 3.09 L Hgb 8.9 L Hct 27.4 L MCHC RDW 15.8 H MCH Lymph % (Auto) 12.1 L [place] % (Auto) 7.8 H [place] # Eos # Lymph # (Auto) [place] # (Auto) 1.0 H Eos # (Auto) Seg Neutrophils % 77.1 H Seg Neuts % (Manual) Baso # (Auto) Lymphocytes % (Manual) Monocytes % (Manual) Eosinophils % (Manual) Basophils % (Manual) Seg Neutrophils # 9.8 H Seg Neutrophils # Man Lymphocytes # (Manual) Monocytes # (Manual) Eosinophils # (Manual) Nucleated RBC % Basophils # (Manual) APTT Heparin Anti-Xa Level ABG pH POC ABG pO2 ABG pO2 ABG HCO3 ABG O2 Saturation ABG Base Excess POC ABG pCO2 ABG Hemoglobin ABG Oxyhemoglobin Oxyhemoglobin Sodium Potassium Chloride 96.9 L Carbon Dioxide 37 H BUN 27 H Creatinine 0.7 L Glucose 140 H POC Glucose 145 H Lactic Acid Calcium Phosphorus Magnesium AST ALT Lactate Dehydrogenase CK-MB (CK-2) C-Reactive Protein NT-Pro-B Natriuret Pep Total Protein Albumin Urine WBC (Auto) 12/21/19 12/21/19 12/21/19 05:38 10:13 11:51 WBC RBC Hgb Hct MCHC RDW MCH Lymph % (Auto) [place] % (Auto) [place] # Eos # Lymph # (Auto) [place] # (Auto) Eos # (Auto) Seg Neutrophils % Seg Neuts % (Manual) Baso # (Auto) Lymphocytes % (Manual) Monocytes % (Manual) Eosinophils % (Manual) Basophils % (Manual) Seg Neutrophils # Seg Neutrophils # Man Lymphocytes # (Manual) Monocytes # (Manual) Eosinophils # (Manual) Nucleated RBC % Basophils # (Manual) APTT 23.9 L Heparin Anti-Xa Level < 0.10 L ABG pH POC ABG pO2 ABG pO2 ABG HCO3 ABG O2 Saturation ABG Base Excess POC ABG pCO2 ABG Hemoglobin ABG Oxyhemoglobin Oxyhemoglobin Sodium Potassium Chloride Carbon Dioxide BUN Creatinine Glucose POC Glucose 151 H 145 H Lactic Acid Calcium Phosphorus Magnesium AST ALT Lactate Dehydrogenase CK-MB (CK-2) C-Reactive Protein NT-Pro-B Natriuret Pep Total Protein Albumin Urine WBC (Auto) 12/21/19 12/22/19 12/22/19 17:16 00:01 01:33 WBC RBC Hgb Hct MCHC RDW MCH Lymph % (Auto) [place] % (Auto) [place] # Eos # Lymph # (Auto) [place] # (Auto) Eos # (Auto) Seg Neutrophils % Seg Neuts % (Manual) Baso # (Auto) Lymphocytes % (Manual) Monocytes % (Manual) Eosinophils % (Manual) Basophils % (Manual) Seg Neutrophils # Seg Neutrophils # Man Lymphocytes # (Manual) Monocytes # (Manual) Eosinophils # (Manual) Nucleated RBC % Basophils # (Manual) APTT Heparin Anti-Xa Level 0.10 L ABG pH POC ABG pO2 ABG pO2 ABG HCO3 ABG O2 Saturation ABG Base Excess POC ABG pCO2 ABG Hemoglobin ABG Oxyhemoglobin Oxyhemoglobin Sodium Potassium Chloride Carbon Dioxide BUN Creatinine Glucose POC Glucose 167 H 179 H Lactic Acid Calcium Phosphorus Magnesium AST ALT Lactate Dehydrogenase CK-MB (CK-2) C-Reactive Protein NT-Pro-B Natriuret Pep Total Protein Albumin Urine WBC (Auto) 12/22/19 12/22/19 12/22/19 03:22 05:10 05:10 WBC 13.8 H RBC 3.20 L Hgb 8.9 L Hct 28.1 L MCHC RDW 15.9 H MCH Lymph % (Auto) [place] % (Auto) [place] # Eos # Lymph # (Auto) [place] # (Auto) Eos # (Auto) Seg Neutrophils % Seg Neuts % (Manual) Baso # (Auto) Lymphocytes % (Manual) Monocytes % (Manual) Eosinophils % (Manual) Basophils % (Manual) Seg Neutrophils # Seg Neutrophils # Man Lymphocytes # (Manual) Monocytes # (Manual) Eosinophils # (Manual) Nucleated RBC % Basophils # (Manual) APTT Heparin Anti-Xa Level ABG pH POC ABG pO2 52.3 L ABG pO2 ABG HCO3 ABG O2 Saturation ABG Base Excess POC ABG pCO2 52.9 H ABG Hemoglobin 10.7 L ABG Oxyhemoglobin 84 L Oxyhemoglobin Sodium Potassium Chloride 96.6 L Carbon Dioxide BUN 25 H Creatinine 0.7 L Glucose 129 H POC Glucose Lactic Acid Calcium Phosphorus Magnesium AST ALT Lactate Dehydrogenase CK-MB (CK-2) C-Reactive Protein NT-Pro-B Natriuret Pep Total Protein Albumin Urine WBC (Auto) 12/22/19 12/22/19 12/22/19 05:18 12:32 12:43 WBC RBC Hgb Hct MCHC RDW MCH Lymph % (Auto) [place] % (Auto) [place] # Eos # Lymph # (Auto) [place] # (Auto) Eos # (Auto) Seg Neutrophils % Seg Neuts % (Manual) Baso # (Auto) Lymphocytes % (Manual) Monocytes % (Manual) Eosinophils % (Manual) Basophils % (Manual) Seg Neutrophils # Seg Neutrophils # Man Lymphocytes # (Manual) Monocytes # (Manual) Eosinophils # (Manual) Nucleated RBC % Basophils # (Manual) APTT Heparin Anti-Xa Level 0.18 L ABG pH POC ABG pO2 ABG pO2 ABG HCO3 ABG O2 Saturation ABG Base Excess POC ABG pCO2 ABG Hemoglobin ABG Oxyhemoglobin Oxyhemoglobin Sodium Potassium Chloride Carbon Dioxide BUN Creatinine Glucose POC Glucose 131 H 208 H Lactic Acid Calcium Phosphorus Magnesium AST ALT Lactate Dehydrogenase CK-MB (CK-2) C-Reactive Protein NT-Pro-B Natriuret Pep Total Protein Albumin Urine WBC (Auto) 12/22/19 12/22/19 12/23/19 17:44 23:20 03:51 WBC 15.2 H RBC 3.43 L Hgb 9.6 L Hct 30.3 L MCHC RDW 15.9 H MCH Lymph % (Auto) [place] % (Auto) [place] # Eos # Lymph # (Auto) [place] # (Auto) Eos # (Auto) Seg Neutrophils % Seg Neuts % (Manual) Baso # (Auto) Lymphocytes % (Manual) Monocytes % (Manual) Eosinophils % (Manual) Basophils % (Manual) Seg Neutrophils # Seg Neutrophils # Man Lymphocytes # (Manual) Monocytes # (Manual) Eosinophils # (Manual) Nucleated RBC % Basophils # (Manual) APTT Heparin Anti-Xa Level ABG pH POC ABG pO2 ABG pO2 ABG HCO3 ABG O2 Saturation ABG Base Excess POC ABG pCO2 ABG Hemoglobin ABG Oxyhemoglobin Oxyhemoglobin Sodium Potassium Chloride Carbon Dioxide BUN Creatinine Glucose POC Glucose 209 H 119 H Lactic Acid Calcium Phosphorus Magnesium AST ALT Lactate Dehydrogenase CK-MB (CK-2) C-Reactive Protein NT-Pro-B Natriuret Pep Total Protein Albumin Urine WBC (Auto) 12/23/19 12/23/19 12/23/19 03:51 05:31 12:09 WBC RBC Hgb Hct MCHC RDW MCH Lymph % (Auto) [place] % (Auto) [place] # Eos # Lymph # (Auto) [place] # (Auto) Eos # (Auto) Seg Neutrophils % Seg Neuts % (Manual) Baso # (Auto) Lymphocytes % (Manual) Monocytes % (Manual) Eosinophils % (Manual) Basophils % (Manual) Seg Neutrophils # Seg Neutrophils # Man Lymphocytes # (Manual) Monocytes # (Manual) Eosinophils # (Manual) Nucleated RBC % Basophils # (Manual) APTT Heparin Anti-Xa Level ABG pH POC ABG pO2 ABG pO2 ABG HCO3 ABG O2 Saturation ABG Base Excess POC ABG pCO2 ABG Hemoglobin ABG Oxyhemoglobin Oxyhemoglobin Sodium Potassium Chloride 97.2 L Carbon Dioxide 31 H BUN 23 H Creatinine 0.6 L Glucose 153 H POC Glucose 149 H 144 H Lactic Acid Calcium Phosphorus Magnesium AST ALT Lactate Dehydrogenase CK-MB (CK-2) C-Reactive Protein NT-Pro-B Natriuret Pep Total Protein Albumin Urine WBC (Auto) 12/23/19 12/23/19 12/23/19 15:30 17:49 23:31 WBC RBC Hgb Hct MCHC RDW MCH Lymph % (Auto) [place] % (Auto) [place] # Eos # Lymph # (Auto) [place] # (Auto) Eos # (Auto) Seg Neutrophils % Seg Neuts % (Manual) Baso # (Auto) Lymphocytes % (Manual) Monocytes % (Manual) Eosinophils % (Manual) Basophils % (Manual) Seg Neutrophils # Seg Neutrophils # Man Lymphocytes # (Manual) Monocytes # (Manual) Eosinophils # (Manual) Nucleated RBC % Basophils # (Manual) APTT Heparin Anti-Xa Level 0.21 L ABG pH POC ABG pO2 ABG pO2 ABG HCO3 ABG O2 Saturation ABG Base Excess POC ABG pCO2 ABG Hemoglobin ABG Oxyhemoglobin Oxyhemoglobin Sodium Potassium Chloride Carbon Dioxide BUN Creatinine Glucose POC Glucose 192 H 151 H Lactic Acid Calcium Phosphorus Magnesium AST ALT Lactate Dehydrogenase CK-MB (CK-2) C-Reactive Protein NT-Pro-B Natriuret Pep Total Protein Albumin Urine WBC (Auto) 12/24/19 12/24/19 12/24/19 05:34 12:13 16:50 WBC RBC Hgb Hct MCHC RDW MCH Lymph % (Auto) [place] % (Auto) [place] # Eos # Lymph # (Auto) [place] # (Auto) Eos # (Auto) Seg Neutrophils % Seg Neuts % (Manual) Baso # (Auto) Lymphocytes % (Manual) Monocytes % (Manual) Eosinophils % (Manual) Basophils % (Manual) Seg Neutrophils # Seg Neutrophils # Man Lymphocytes # (Manual) Monocytes # (Manual) Eosinophils # (Manual) Nucleated RBC % Basophils # (Manual) APTT Heparin Anti-Xa Level 0.16 L ABG pH POC ABG pO2 ABG pO2 ABG HCO3 ABG O2 Saturation ABG Base Excess POC ABG pCO2 ABG Hemoglobin ABG Oxyhemoglobin Oxyhemoglobin Sodium Potassium Chloride Carbon Dioxide BUN Creatinine Glucose POC Glucose 145 H 124 H Lactic Acid Calcium Phosphorus Magnesium AST ALT Lactate Dehydrogenase CK-MB (CK-2) C-Reactive Protein NT-Pro-B Natriuret Pep Total Protein Albumin Urine WBC (Auto) 12/24/19 12/25/19 12/25/19 17:53 00:14 04:18 WBC 12.9 H RBC 3.30 L Hgb 9.1 L Hct 28.8 L MCHC RDW 16.4 H MCH Lymph % (Auto) [place] % (Auto) 7.8 H [place] # Eos # Lymph # (Auto) [place] # (Auto) 1.0 H Eos # (Auto) Seg Neutrophils % 75.5 H Seg Neuts % (Manual) Baso # (Auto) Lymphocytes % (Manual) Monocytes % (Manual) Eosinophils % (Manual) Basophils % (Manual) Seg Neutrophils # 9.7 H Seg Neutrophils # Man Lymphocytes # (Manual) Monocytes # (Manual) Eosinophils # (Manual) Nucleated RBC % Basophils # (Manual) APTT Heparin Anti-Xa Level ABG pH POC ABG pO2 ABG pO2 ABG HCO3 ABG O2 Saturation ABG Base Excess POC ABG pCO2 ABG Hemoglobin ABG Oxyhemoglobin Oxyhemoglobin Sodium Potassium Chloride Carbon Dioxide BUN Creatinine Glucose POC Glucose 164 H 148 H Lactic Acid Calcium Phosphorus Magnesium AST ALT Lactate Dehydrogenase CK-MB (CK-2) C-Reactive Protein NT-Pro-B Natriuret Pep Total Protein Albumin Urine WBC (Auto) 12/25/19 12/25/19 12/25/19 04:18 05:38 11:44 WBC RBC Hgb Hct MCHC RDW MCH Lymph % (Auto) [place] % (Auto) [place] # Eos # Lymph # (Auto) [place] # (Auto) Eos # (Auto) Seg Neutrophils % Seg Neuts % (Manual) Baso # (Auto) Lymphocytes % (Manual) Monocytes % (Manual) Eosinophils % (Manual) Basophils % (Manual) Seg Neutrophils # Seg Neutrophils # Man Lymphocytes # (Manual) Monocytes # (Manual) Eosinophils # (Manual) Nucleated RBC % Basophils # (Manual) APTT Heparin Anti-Xa Level ABG pH POC ABG pO2 ABG pO2 ABG HCO3 ABG O2 Saturation ABG Base Excess POC ABG pCO2 ABG Hemoglobin ABG Oxyhemoglobin Oxyhemoglobin Sodium Potassium Chloride Carbon Dioxide 33 H BUN 27 H Creatinine 0.6 L Glucose 132 H POC Glucose 152 H 166 H Lactic Acid Calcium Phosphorus Magnesium AST ALT Lactate Dehydrogenase CK-MB (CK-2) C-Reactive Protein NT-Pro-B Natriuret Pep Total Protein Albumin Urine WBC (Auto) 12/25/19 12/26/19 12/26/19 18:29 00:17 00:18 WBC RBC Hgb Hct MCHC RDW MCH Lymph % (Auto) [place] % (Auto) [place] # Eos # Lymph # (Auto) [place] # (Auto) Eos # (Auto) Seg Neutrophils % Seg Neuts % (Manual) Baso # (Auto) Lymphocytes % (Manual) Monocytes % (Manual) Eosinophils % (Manual) Basophils % (Manual) Seg Neutrophils # Seg Neutrophils # Man Lymphocytes # (Manual) Monocytes # (Manual) Eosinophils # (Manual) Nucleated RBC % Basophils # (Manual) APTT Heparin Anti-Xa Level ABG pH POC ABG pO2 ABG pO2 ABG HCO3 ABG O2 Saturation ABG Base Excess POC ABG pCO2 ABG Hemoglobin ABG Oxyhemoglobin Oxyhemoglobin Sodium Potassium Chloride 97.8 L Carbon Dioxide BUN 25 H Creatinine 0.6 L Glucose 140 H POC Glucose 194 H 151 H Lactic Acid Calcium Phosphorus Magnesium AST ALT Lactate Dehydrogenase CK-MB (CK-2) C-Reactive Protein NT-Pro-B Natriuret Pep Total Protein Albumin Urine WBC (Auto) 12/26/19 12/26/19 12/26/19 05:36 11:41 17:50 WBC RBC Hgb Hct MCHC RDW MCH Lymph % (Auto) [place] % (Auto) [place] # Eos # Lymph # (Auto) [place] # (Auto) Eos # (Auto) Seg Neutrophils % Seg Neuts % (Manual) Baso # (Auto) Lymphocytes % (Manual) Monocytes % (Manual) Eosinophils % (Manual) Basophils % (Manual) Seg Neutrophils # Seg Neutrophils # Man Lymphocytes # (Manual) Monocytes # (Manual) Eosinophils # (Manual) Nucleated RBC % Basophils # (Manual) APTT Heparin Anti-Xa Level ABG pH POC ABG pO2 ABG pO2 ABG HCO3 ABG O2 Saturation ABG Base Excess POC ABG pCO2 ABG Hemoglobin ABG Oxyhemoglobin Oxyhemoglobin Sodium Potassium Chloride Carbon Dioxide BUN Creatinine Glucose POC Glucose 156 H 148 H 139 H Lactic Acid Calcium Phosphorus Magnesium AST ALT Lactate Dehydrogenase CK-MB (CK-2) C-Reactive Protein NT-Pro-B Natriuret Pep Total Protein Albumin Urine WBC (Auto) 12/26/19 12/27/19 12/27/19 23:19 05:34 12:02 WBC RBC Hgb Hct MCHC RDW MCH Lymph % (Auto) [place] % (Auto) [place] # Eos # Lymph # (Auto) [place] # (Auto) Eos # (Auto) Seg Neutrophils % Seg Neuts % (Manual) Baso # (Auto) Lymphocytes % (Manual) Monocytes % (Manual) Eosinophils % (Manual) Basophils % (Manual) Seg Neutrophils # Seg Neutrophils # Man Lymphocytes # (Manual) Monocytes # (Manual) Eosinophils # (Manual) Nucleated RBC % Basophils # (Manual) APTT Heparin Anti-Xa Level ABG pH POC ABG pO2 ABG pO2 ABG HCO3 ABG O2 Saturation ABG Base Excess POC ABG pCO2 ABG Hemoglobin ABG Oxyhemoglobin Oxyhemoglobin Sodium Potassium Chloride Carbon Dioxide BUN Creatinine Glucose POC Glucose 161 H 145 H 157 H Lactic Acid Calcium Phosphorus Magnesium AST ALT Lactate Dehydrogenase CK-MB (CK-2) C-Reactive Protein NT-Pro-B Natriuret Pep Total Protein Albumin Urine WBC (Auto) 12/27/19 12/27/19 12/27/19 17:35 20:11 23:00 WBC RBC Hgb Hct MCHC RDW MCH Lymph % (Auto) [place] % (Auto) [place] # Eos # Lymph # (Auto) [place] # (Auto) Eos # (Auto) Seg Neutrophils % Seg Neuts % (Manual) Baso # (Auto) Lymphocytes % (Manual) Monocytes % (Manual) Eosinophils % (Manual) Basophils % (Manual) Seg Neutrophils # Seg Neutrophils # Man Lymphocytes # (Manual) Monocytes # (Manual) Eosinophils # (Manual) Nucleated RBC % Basophils # (Manual) APTT Heparin Anti-Xa Level 0.19 L ABG pH POC ABG pO2 ABG pO2 ABG HCO3 ABG O2 Saturation ABG Base Excess POC ABG pCO2 ABG Hemoglobin ABG Oxyhemoglobin Oxyhemoglobin Sodium Potassium Chloride Carbon Dioxide BUN Creatinine Glucose POC Glucose 158 H 155 H Lactic Acid Calcium Phosphorus Magnesium AST ALT Lactate Dehydrogenase CK-MB (CK-2) C-Reactive Protein NT-Pro-B Natriuret Pep Total Protein Albumin Urine WBC (Auto) 12/27/19 12/28/19 12/28/19 23:45 02:41 02:41 WBC 13.0 H RBC 3.48 L Hgb 9.5 L Hct 30.6 L MCHC 31 L RDW 16.6 H MCH 27 L Lymph % (Auto) 13.0 L [place] % (Auto) 8.0 H [place] # Eos # Lymph # (Auto) [place] # (Auto) 1.0 H Eos # (Auto) Seg Neutrophils % 76.3 H Seg Neuts % (Manual) Baso # (Auto) Lymphocytes % (Manual) Monocytes % (Manual) Eosinophils % (Manual) Basophils % (Manual) Seg Neutrophils # 9.9 H Seg Neutrophils # Man Lymphocytes # (Manual) Monocytes # (Manual) Eosinophils # (Manual) Nucleated RBC % Basophils # (Manual) APTT Heparin Anti-Xa Level ABG pH POC ABG pO2 ABG pO2 ABG HCO3 ABG O2 Saturation ABG Base Excess POC ABG pCO2 ABG Hemoglobin ABG Oxyhemoglobin Oxyhemoglobin Sodium Potassium Chloride Carbon Dioxide BUN 22 H Creatinine 0.6 L Glucose 101 H POC Glucose 130 H Lactic Acid Calcium Phosphorus Magnesium AST ALT Lactate Dehydrogenase CK-MB (CK-2) C-Reactive Protein NT-Pro-B Natriuret Pep Total Protein Albumin Urine WBC (Auto) 12/28/19 12/28/19 12/28/19 06:00 12:34 18:13 WBC RBC Hgb Hct MCHC RDW MCH Lymph % (Auto) [place] % (Auto) [place] # Eos # Lymph # (Auto) [place] # (Auto) Eos # (Auto) Seg Neutrophils % Seg Neuts % (Manual) Baso # (Auto) Lymphocytes % (Manual) Monocytes % (Manual) Eosinophils % (Manual) Basophils % (Manual) Seg Neutrophils # Seg Neutrophils # Man Lymphocytes # (Manual) Monocytes # (Manual) Eosinophils # (Manual) Nucleated RBC % Basophils # (Manual) APTT Heparin Anti-Xa Level ABG pH POC ABG pO2 ABG pO2 ABG HCO3 ABG O2 Saturation ABG Base Excess POC ABG pCO2 ABG Hemoglobin ABG Oxyhemoglobin Oxyhemoglobin Sodium Potassium Chloride Carbon Dioxide BUN Creatinine Glucose POC Glucose 150 H 161 H 128 H Lactic Acid Calcium Phosphorus Magnesium AST ALT Lactate Dehydrogenase CK-MB (CK-2) C-Reactive Protein NT-Pro-B Natriuret Pep Total Protein Albumin Urine WBC (Auto) 12/28/19 12/29/19 12/29/19 23:36 05:21 11:40 WBC RBC Hgb Hct MCHC RDW MCH Lymph % (Auto) [place] % (Auto) [place] # Eos # Lymph # (Auto) [place] # (Auto) Eos # (Auto) Seg Neutrophils % Seg Neuts % (Manual) Baso # (Auto) Lymphocytes % (Manual) Monocytes % (Manual) Eosinophils % (Manual) Basophils % (Manual) Seg Neutrophils # Seg Neutrophils # Man Lymphocytes # (Manual) Monocytes # (Manual) Eosinophils # (Manual) Nucleated RBC % Basophils # (Manual) APTT Heparin Anti-Xa Level ABG pH POC ABG pO2 ABG pO2 ABG HCO3 ABG O2 Saturation ABG Base Excess POC ABG pCO2 ABG Hemoglobin ABG Oxyhemoglobin Oxyhemoglobin Sodium Potassium Chloride Carbon Dioxide BUN Creatinine Glucose POC Glucose 137 H 136 H 166 H Lactic Acid Calcium Phosphorus Magnesium AST ALT Lactate Dehydrogenase CK-MB (CK-2) C-Reactive Protein NT-Pro-B Natriuret Pep Total Protein Albumin Urine WBC (Auto) 12/29/19 12/29/19 12/29/19 17:23 19:21 23:38 WBC RBC Hgb Hct MCHC RDW MCH Lymph % (Auto) [place] % (Auto) Victoria # Eos # Lymph # (Auto) [place] # (Auto) Eos # (Auto) Seg Neutrophils % Seg Neuts % (Manual) Baso # (Auto) Lymphocytes % (Manual) Monocytes % (Manual) Eosinophils % (Manual) Basophils % (Manual) Seg Neutrophils # Seg Neutrophils # Man Lymphocytes # (Manual) Monocytes # (Manual) Eosinophils # (Manual) Nucleated RBC % Basophils # (Manual) APTT Heparin Anti-Xa Level 0.20 L ABG pH POC ABG pO2 ABG pO2 ABG HCO3 ABG O2 Saturation ABG Base Excess POC ABG pCO2 ABG Hemoglobin ABG Oxyhemoglobin Oxyhemoglobin Sodium Potassium Chloride Carbon Dioxide BUN Creatinine Glucose POC Glucose 144 H 141 H Lactic Acid Calcium Phosphorus Magnesium AST ALT Lactate Dehydrogenase CK-MB (CK-2) C-Reactive Protein NT-Pro-B Natriuret Pep Total Protein Albumin Urine WBC (Auto) 12/30/19 12/30/19 12/30/19 03:58 03:58 04:59 WBC RBC 3.54 L Hgb 9.8 L Hct 30.7 L MCHC RDW 16.8 H MCH Lymph % (Auto) [place] % (Auto) [place] # Eos # Lymph # (Auto) [place] # (Auto) Eos # (Auto) Seg Neutrophils % Seg Neuts % (Manual) Baso # (Auto) Lymphocytes % (Manual) Monocytes % (Manual) Eosinophils % (Manual) Basophils % (Manual) Seg Neutrophils # Seg Neutrophils # Man Lymphocytes # (Manual) Monocytes # (Manual) Eosinophils # (Manual) Nucleated RBC % Basophils # (Manual) APTT Heparin Anti-Xa Level ABG pH POC ABG pO2 ABG pO2 ABG HCO3 29.8 H ABG O2 Saturation ABG Base Excess 4.8 H POC ABG pCO2 ABG Hemoglobin 11.2 L ABG Oxyhemoglobin Oxyhemoglobin 93.8 L Sodium Potassium Chloride 97.8 L Carbon Dioxide BUN 26 H Creatinine Glucose 168 H POC Glucose Lactic Acid Calcium Phosphorus Magnesium AST ALT Lactate Dehydrogenase CK-MB (CK-2) C-Reactive Protein NT-Pro-B Natriuret Pep Total Protein Albumin Urine WBC (Auto) 12/30/19 12/30/19 12/30/19 05:45 11:34 17:28 WBC RBC Hgb Hct MCHC RDW MCH Lymph % (Auto) [place] % (Auto) [place] # Eos # Lymph # (Auto) [place] # (Auto) Eos # (Auto) Seg Neutrophils % Seg Neuts % (Manual) Baso # (Auto) Lymphocytes % (Manual) Monocytes % (Manual) Eosinophils % (Manual) Basophils % (Manual) Seg Neutrophils # Seg Neutrophils # Man Lymphocytes # (Manual) Monocytes # (Manual) Eosinophils # (Manual) Nucleated RBC % Basophils # (Manual) APTT Heparin Anti-Xa Level ABG pH POC ABG pO2 ABG pO2 ABG HCO3 ABG O2 Saturation ABG Base Excess POC ABG pCO2 ABG Hemoglobin ABG Oxyhemoglobin Oxyhemoglobin Sodium Potassium Chloride Carbon Dioxide BUN Creatinine Glucose POC Glucose 163 H 180 H 150 H Lactic Acid Calcium Phosphorus Magnesium AST ALT Lactate Dehydrogenase CK-MB (CK-2) C-Reactive Protein NT-Pro-B Natriuret Pep Total Protein Albumin Urine WBC (Auto) 12/30/19 12/31/19 12/31/19 23:43 04:55 05:07 WBC RBC Hgb Hct MCHC RDW MCH Lymph % (Auto) [place] % (Auto) [place] # Eos # Lymph # (Auto) [place] # (Auto) Eos # (Auto) Seg Neutrophils % Seg Neuts % (Manual) Baso # (Auto) Lymphocytes % (Manual) Monocytes % (Manual) Eosinophils % (Manual) Basophils % (Manual) Seg Neutrophils # Seg Neutrophils # Man Lymphocytes # (Manual) Monocytes # (Manual) Eosinophils # (Manual) Nucleated RBC % Basophils # (Manual) APTT Heparin Anti-Xa Level ABG pH POC ABG pO2 ABG pO2 ABG HCO3 ABG O2 Saturation ABG Base Excess POC ABG pCO2 ABG Hemoglobin ABG Oxyhemoglobin Oxyhemoglobin Sodium Potassium 5.6 H D Chloride Carbon Dioxide BUN 33 H Creatinine Glucose 131 H POC Glucose 142 H 134 H Lactic Acid Calcium Phosphorus Magnesium AST ALT Lactate Dehydrogenase CK-MB (CK-2) C-Reactive Protein NT-Pro-B Natriuret Pep Total Protein Albumin Urine WBC (Auto) 12/31/19 12/31/19 12/31/19 11:30 17:19 17:36 WBC RBC Hgb Hct MCHC RDW MCH Lymph % (Auto) [place] % (Auto) [place] # Eos # Lymph # (Auto) [place] # (Auto) Eos # (Auto) Seg Neutrophils % Seg Neuts % (Manual) Baso # (Auto) Lymphocytes % (Manual) Monocytes % (Manual) Eosinophils % (Manual) Basophils % (Manual) Seg Neutrophils # Seg Neutrophils # Man Lymphocytes # (Manual) Monocytes # (Manual) Eosinophils # (Manual) Nucleated RBC % Basophils # (Manual) APTT Heparin Anti-Xa Level ABG pH POC ABG pO2 ABG pO2 ABG HCO3 ABG O2 Saturation ABG Base Excess POC ABG pCO2 ABG Hemoglobin ABG Oxyhemoglobin Oxyhemoglobin Sodium Potassium Chloride Carbon Dioxide BUN 35 H Creatinine Glucose 156 H POC Glucose 158 H 181 H Lactic Acid Calcium Phosphorus Magnesium AST ALT Lactate Dehydrogenase CK-MB (CK-2) C-Reactive Protein NT-Pro-B Natriuret Pep Total Protein Albumin Urine WBC (Auto) 12/31/19 12/31/19 12/31/19 18:16 19:41 21:53 WBC RBC Hgb Hct MCHC RDW MCH Lymph % (Auto) [place] % (Auto) [place] # Eos # Lymph # (Auto) [place] # (Auto) Eos # (Auto) Seg Neutrophils % Seg Neuts % (Manual) Baso # (Auto) Lymphocytes % (Manual) Monocytes % (Manual) Eosinophils % (Manual) Basophils % (Manual) Seg Neutrophils # Seg Neutrophils # Man Lymphocytes # (Manual) Monocytes # (Manual) Eosinophils # (Manual) Nucleated RBC % Basophils # (Manual) APTT Heparin Anti-Xa Level 0.20 L ABG pH POC ABG pO2 ABG pO2 ABG HCO3 ABG O2 Saturation ABG Base Excess POC ABG pCO2 ABG Hemoglobin ABG Oxyhemoglobin Oxyhemoglobin Sodium Potassium Chloride Carbon Dioxide BUN 34 H Creatinine Glucose 169 H POC Glucose 141 H Lactic Acid Calcium Phosphorus Magnesium AST ALT Lactate Dehydrogenase CK-MB (CK-2) C-Reactive Protein NT-Pro-B Natriuret Pep Total Protein Albumin Urine WBC (Auto) 12/31/19 01/01/20 01/01/20 23:51 05:17 10:40 WBC RBC Hgb Hct MCHC RDW MCH Lymph % (Auto) [place] % (Auto) [place] # Eos # Lymph # (Auto) [place] # (Auto) Eos # (Auto) Seg Neutrophils % Seg Neuts % (Manual) Baso # (Auto) Lymphocytes % (Manual) Monocytes % (Manual) Eosinophils % (Manual) Basophils % (Manual) Seg Neutrophils # Seg Neutrophils # Man Lymphocytes # (Manual) Monocytes # (Manual) Eosinophils # (Manual) Nucleated RBC % Basophils # (Manual) APTT Heparin Anti-Xa Level ABG pH POC ABG pO2 ABG pO2 ABG HCO3 ABG O2 Saturation ABG Base Excess POC ABG pCO2 ABG Hemoglobin ABG Oxyhemoglobin Oxyhemoglobin Sodium Potassium Chloride Carbon Dioxide BUN 31 H Creatinine 0.7 L Glucose 137 H POC Glucose 131 H 155 H Lactic Acid Calcium Phosphorus Magnesium AST 73 H ALT 97 H Lactate Dehydrogenase CK-MB (CK-2) C-Reactive Protein NT-Pro-B Natriuret Pep 3866 H Total Protein Albumin 2.8 L Urine WBC (Auto) 01/01/20 01/01/20 01/01/20 12:26 15:33 17:53 WBC 14.3 H RBC 3.35 L Hgb 9.1 L Hct 28.8 L MCHC RDW 17.0 H MCH 27 L Lymph % (Auto) 7.0 L [place] % (Auto) 7.6 H [place] # Eos # Lymph # (Auto) 1.0 L [place] # (Auto) 1.1 H Eos # (Auto) Seg Neutrophils % 83.3 H Seg Neuts % (Manual) Baso # (Auto) Lymphocytes % (Manual) Monocytes % (Manual) Eosinophils % (Manual) Basophils % (Manual) Seg Neutrophils # 12.0 H Seg Neutrophils # Man Lymphocytes # (Manual) Monocytes # (Manual) Eosinophils # (Manual) Nucleated RBC % Basophils # (Manual) APTT Heparin Anti-Xa Level ABG pH POC ABG pO2 ABG pO2 ABG HCO3 ABG O2 Saturation ABG Base Excess POC ABG pCO2 ABG Hemoglobin ABG Oxyhemoglobin Oxyhemoglobin Sodium Potassium Chloride Carbon Dioxide BUN Creatinine Glucose POC Glucose 128 H 128 H Lactic Acid Calcium Phosphorus Magnesium AST ALT Lactate Dehydrogenase CK-MB (CK-2) C-Reactive Protein NT-Pro-B Natriuret Pep Total Protein Albumin Urine WBC (Auto) 01/01/20 01/02/20 01/02/20 23:04 05:39 07:00 WBC RBC Hgb Hct MCHC RDW MCH Lymph % (Auto) [place] % (Auto) [place] # Eos # Lymph # (Auto) [place] # (Auto) Eos # (Auto) Seg Neutrophils % Seg Neuts % (Manual) Baso # (Auto) Lymphocytes % (Manual) Monocytes % (Manual) Eosinophils % (Manual) Basophils % (Manual) Seg Neutrophils # Seg Neutrophils # Man Lymphocytes # (Manual) Monocytes # (Manual) Eosinophils # (Manual) Nucleated RBC % Basophils # (Manual) APTT Heparin Anti-Xa Level 0.13 L ABG pH POC ABG pO2 ABG pO2 ABG HCO3 ABG O2 Saturation ABG Base Excess POC ABG pCO2 ABG Hemoglobin ABG Oxyhemoglobin Oxyhemoglobin Sodium Potassium Chloride Carbon Dioxide BUN Creatinine Glucose POC Glucose 120 H 169 H Lactic Acid Calcium Phosphorus Magnesium AST ALT Lactate Dehydrogenase CK-MB (CK-2) C-Reactive Protein NT-Pro-B Natriuret Pep Total Protein Albumin Urine WBC (Auto) 01/02/20 01/02/20 01/02/20 12:15 14:06 17:58 WBC RBC Hgb Hct MCHC RDW MCH Lymph % (Auto) [place] % (Auto) [place] # Eos # Lymph # (Auto) [place] # (Auto) Eos # (Auto) Seg Neutrophils % Seg Neuts % (Manual) Baso # (Auto) Lymphocytes % (Manual) Monocytes % (Manual) Eosinophils % (Manual) Basophils % (Manual) Seg Neutrophils # Seg Neutrophils # Man Lymphocytes # (Manual) Monocytes # (Manual) Eosinophils # (Manual) Nucleated RBC % Basophils # (Manual) APTT Heparin Anti-Xa Level < 0.10 L ABG pH POC ABG pO2 ABG pO2 ABG HCO3 ABG O2 Saturation ABG Base Excess POC ABG pCO2 ABG Hemoglobin ABG Oxyhemoglobin Oxyhemoglobin Sodium Potassium Chloride Carbon Dioxide BUN Creatinine Glucose POC Glucose 190 H 198 H Lactic Acid Calcium Phosphorus Magnesium AST ALT Lactate Dehydrogenase CK-MB (CK-2) C-Reactive Protein NT-Pro-B Natriuret Pep Total Protein Albumin Urine WBC (Auto) 01/02/20 01/02/20 01/03/20 21:43 23:33 05:42 WBC RBC Hgb Hct MCHC RDW MCH Lymph % (Auto) [place] % (Auto) [place] # Eos # Lymph # (Auto) [place] # (Auto) Eos # (Auto) Seg Neutrophils % Seg Neuts % (Manual) Baso # (Auto) Lymphocytes % (Manual) Monocytes % (Manual) Eosinophils % (Manual) Basophils % (Manual) Seg Neutrophils # Seg Neutrophils # Man Lymphocytes # (Manual) Monocytes # (Manual) Eosinophils # (Manual) Nucleated RBC % Basophils # (Manual) APTT Heparin Anti-Xa Level 0.10 L ABG pH POC ABG pO2 ABG pO2 ABG HCO3 ABG O2 Saturation ABG Base Excess POC ABG pCO2 ABG Hemoglobin ABG Oxyhemoglobin Oxyhemoglobin Sodium Potassium Chloride Carbon Dioxide BUN Creatinine Glucose POC Glucose 180 H 163 H Lactic Acid Calcium Phosphorus Magnesium AST ALT Lactate Dehydrogenase CK-MB (CK-2) C-Reactive Protein NT-Pro-B Natriuret Pep Total Protein Albumin Urine WBC (Auto) 01/03/20 01/03/20 01/03/20 06:50 07:25 07:45 WBC 12.1 H RBC 3.35 L Hgb 9.0 L Hct 28.9 L MCHC 31 L RDW 16.6 H MCH 27 L Lymph % (Auto) 13.0 L [place] % (Auto) 8.6 H [place] # Eos # Lymph # (Auto) [place] # (Auto) 1.0 H Eos # (Auto) Seg Neutrophils % 75.9 H Seg Neuts % (Manual) Baso # (Auto) Lymphocytes % (Manual) Monocytes % (Manual) Eosinophils % (Manual) Basophils % (Manual) Seg Neutrophils # 9.2 H Seg Neutrophils # Man Lymphocytes # (Manual) Monocytes # (Manual) Eosinophils # (Manual) Nucleated RBC % Basophils # (Manual) APTT Heparin Anti-Xa Level 0.29 L ABG pH POC ABG pO2 ABG pO2 ABG HCO3 ABG O2 Saturation ABG Base Excess POC ABG pCO2 ABG Hemoglobin ABG Oxyhemoglobin Oxyhemoglobin Sodium Potassium 3.3 L D Chloride Carbon Dioxide 35 H D BUN 23 H Creatinine 0.6 L Glucose 149 H POC Glucose Lactic Acid Calcium Phosphorus Magnesium AST ALT 88 H Lactate Dehydrogenase CK-MB (CK-2) C-Reactive Protein NT-Pro-B Natriuret Pep Total Protein 6.2 L Albumin 2.9 L Urine WBC (Auto) 01/03/20 01/03/20 01/03/20 12:05 17:42 18:30 WBC RBC Hgb Hct MCHC RDW MCH Lymph % (Auto) [place] % (Auto) [place] # Eos # Lymph # (Auto) [place] # (Auto) Eos # (Auto) Seg Neutrophils % Seg Neuts % (Manual) Baso # (Auto) Lymphocytes % (Manual) Monocytes % (Manual) Eosinophils % (Manual) Basophils % (Manual) Seg Neutrophils # Seg Neutrophils # Man Lymphocytes # (Manual) Monocytes # (Manual) Eosinophils # (Manual) Nucleated RBC % Basophils # (Manual) APTT Heparin Anti-Xa Level ABG pH POC ABG pO2 ABG pO2 70.7 L ABG HCO3 36.1 H ABG O2 Saturation 94.4 L ABG Base Excess 10.0 H POC ABG pCO2 ABG Hemoglobin 9.7 L ABG Oxyhemoglobin Oxyhemoglobin 91.8 L Sodium Potassium Chloride Carbon Dioxide BUN Creatinine Glucose POC Glucose 128 H 132 H Lactic Acid Calcium Phosphorus Magnesium AST ALT Lactate Dehydrogenase CK-MB (CK-2) C-Reactive Protein NT-Pro-B Natriuret Pep Total Protein Albumin Urine WBC (Auto) 01/04/20 01/04/20 01/04/20 00:10 04:26 05:23 WBC RBC Hgb Hct MCHC RDW MCH Lymph % (Auto) [place] % (Auto) [place] # Eos # Lymph # (Auto) [place] # (Auto) Eos # (Auto) Seg Neutrophils % Seg Neuts % (Manual) Baso # (Auto) Lymphocytes % (Manual) Monocytes % (Manual) Eosinophils % (Manual) Basophils % (Manual) Seg Neutrophils # Seg Neutrophils # Man Lymphocytes # (Manual) Monocytes # (Manual) Eosinophils # (Manual) Nucleated RBC % Basophils # (Manual) APTT Heparin Anti-Xa Level 0.16 L ABG pH POC ABG pO2 ABG pO2 ABG HCO3 ABG O2 Saturation ABG Base Excess POC ABG pCO2 ABG Hemoglobin ABG Oxyhemoglobin Oxyhemoglobin Sodium Potassium Chloride Carbon Dioxide BUN Creatinine Glucose POC Glucose 121 H 119 H Lactic Acid Calcium Phosphorus Magnesium AST ALT Lactate Dehydrogenase CK-MB (CK-2) C-Reactive Protein NT-Pro-B Natriuret Pep Total Protein Albumin Urine WBC (Auto) 01/04/20 01/04/20 01/04/20 09:50 09:50 12:18 WBC 15.4 H RBC 3.30 L Hgb 8.7 L Hct 28.2 L MCHC 31 L RDW 17.0 H MCH 26 L Lymph % (Auto) [place] % (Auto) 7.6 H [place] # Eos # Lymph # (Auto) [place] # (Auto) 1.2 H Eos # (Auto) Seg Neutrophils % 75.4 H Seg Neuts % (Manual) Baso # (Auto) Lymphocytes % (Manual) Monocytes % (Manual) Eosinophils % (Manual) Basophils % (Manual) Seg Neutrophils # 11.6 H Seg Neutrophils # Man Lymphocytes # (Manual) Monocytes # (Manual) Eosinophils # (Manual) Nucleated RBC % Basophils # (Manual) APTT Heparin Anti-Xa Level ABG pH POC ABG pO2 ABG pO2 ABG HCO3 ABG O2 Saturation ABG Base Excess POC ABG pCO2 ABG Hemoglobin ABG Oxyhemoglobin Oxyhemoglobin Sodium 148 H Potassium 3.5 L Chloride Carbon Dioxide 32 H BUN Creatinine 0.6 L Glucose 114 H POC Glucose 111 H Lactic Acid Calcium Phosphorus Magnesium AST ALT 59 H Lactate Dehydrogenase CK-MB (CK-2) C-Reactive Protein NT-Pro-B Natriuret Pep Total Protein Albumin 2.6 L Urine WBC (Auto) 01/05/20 01/05/20 01/05/20 04:05 04:05 05:19 WBC 11.7 H RBC 3.50 L Hgb 9.3 L Hct 29.9 L MCHC 31 L RDW 16.6 H MCH 27 L Lymph % (Auto) 13.1 L [place] % (Auto) 9.7 H [place] # Eos # Lymph # (Auto) [place] # (Auto) 1.1 H Eos # (Auto) Seg Neutrophils % 74.0 H Seg Neuts % (Manual) Baso # (Auto) Lymphocytes % (Manual) Monocytes % (Manual) Eosinophils % (Manual) Basophils % (Manual) Seg Neutrophils # 8.6 H Seg Neutrophils # Man Lymphocytes # (Manual) Monocytes # (Manual) Eosinophils # (Manual) Nucleated RBC % Basophils # (Manual) APTT Heparin Anti-Xa Level ABG pH POC ABG pO2 ABG pO2 ABG HCO3 ABG O2 Saturation ABG Base Excess POC ABG pCO2 ABG Hemoglobin ABG Oxyhemoglobin Oxyhemoglobin Sodium 151 H Potassium Chloride Carbon Dioxide 34 H BUN Creatinine 0.7 L Glucose POC Glucose 112 H Lactic Acid Calcium Phosphorus Magnesium AST ALT 59 H Lactate Dehydrogenase CK-MB (CK-2) C-Reactive Protein NT-Pro-B Natriuret Pep Total Protein 5.8 L Albumin 2.6 L Urine WBC (Auto) 01/05/20 01/06/20 01/06/20 16:04 00:23 04:44 WBC RBC 3.36 L Hgb 8.9 L Hct 28.7 L MCHC 31 L RDW 16.9 H MCH 26 L Lymph % (Auto) [place] % (Auto) 9.4 H [place] # Eos # Lymph # (Auto) [place] # (Auto) Eos # (Auto) Seg Neutrophils % Seg Neuts % (Manual) Baso # (Auto) Lymphocytes % (Manual) Monocytes % (Manual) Eosinophils % (Manual) Basophils % (Manual) Seg Neutrophils # Seg Neutrophils # Man Lymphocytes # (Manual) Monocytes # (Manual) Eosinophils # (Manual) Nucleated RBC % Basophils # (Manual) APTT Heparin Anti-Xa Level ABG pH POC ABG pO2 ABG pO2 ABG HCO3 ABG O2 Saturation ABG Base Excess POC ABG pCO2 ABG Hemoglobin ABG Oxyhemoglobin Oxyhemoglobin Sodium 151 H Potassium 3.2 L Chloride Carbon Dioxide 34 H BUN Creatinine 0.6 L Glucose POC Glucose 107 H Lactic Acid Calcium Phosphorus Magnesium AST ALT Lactate Dehydrogenase CK-MB (CK-2) C-Reactive Protein NT-Pro-B Natriuret Pep Total Protein Albumin Urine WBC (Auto) 01/06/20 01/06/20 01/06/20 04:44 05:33 12:04 WBC RBC Hgb Hct MCHC RDW MCH Lymph % (Auto) [place] % (Auto) [place] # Eos # Lymph # (Auto) [place] # (Auto) Eos # (Auto) Seg Neutrophils % Seg Neuts % (Manual) Baso # (Auto) Lymphocytes % (Manual) Monocytes % (Manual) Eosinophils % (Manual) Basophils % (Manual) Seg Neutrophils # Seg Neutrophils # Man Lymphocytes # (Manual) Monocytes # (Manual) Eosinophils # (Manual) Nucleated RBC % Basophils # (Manual) APTT Heparin Anti-Xa Level ABG pH POC ABG pO2 ABG pO2 ABG HCO3 ABG O2 Saturation ABG Base Excess POC ABG pCO2 ABG Hemoglobin ABG Oxyhemoglobin Oxyhemoglobin Sodium 151 H Potassium 3.4 L Chloride Carbon Dioxide 33 H BUN Creatinine 0.6 L Glucose 118 H POC Glucose 118 H 123 H Lactic Acid Calcium Phosphorus Magnesium AST ALT Lactate Dehydrogenase CK-MB (CK-2) C-Reactive Protein NT-Pro-B Natriuret Pep Total Protein 6.2 L Albumin 2.6 L Urine WBC (Auto) 01/06/20 01/07/20 01/07/20 17:54 00:06 04:10 WBC RBC 3.42 L Hgb 8.9 L Hct 29.0 L MCHC 31 L RDW 17.1 H MCH 26 L Lymph % (Auto) [place] % (Auto) 8.4 H [place] # Eos # Lymph # (Auto) [place] # (Auto) Eos # (Auto) Seg Neutrophils % Seg Neuts % (Manual) Baso # (Auto) Lymphocytes % (Manual) Monocytes % (Manual) Eosinophils % (Manual) Basophils % (Manual) Seg Neutrophils # Seg Neutrophils # Man Lymphocytes # (Manual) Monocytes # (Manual) Eosinophils # (Manual) Nucleated RBC % Basophils # (Manual) APTT Heparin Anti-Xa Level ABG pH POC ABG pO2 ABG pO2 ABG HCO3 ABG O2 Saturation ABG Base Excess POC ABG pCO2 ABG Hemoglobin ABG Oxyhemoglobin Oxyhemoglobin Sodium Potassium Chloride Carbon Dioxide BUN Creatinine Glucose POC Glucose 112 H 126 H Lactic Acid Calcium Phosphorus Magnesium AST ALT Lactate Dehydrogenase CK-MB (CK-2) C-Reactive Protein NT-Pro-B Natriuret Pep Total Protein Albumin Urine WBC (Auto) 01/07/20 01/07/20 01/07/20 04:10 05:59 12:27 WBC RBC Hgb Hct MCHC RDW MCH Lymph % (Auto) [place] % (Auto) [place] # Eos # Lymph # (Auto) [place] # (Auto) Eos # (Auto) Seg Neutrophils % Seg Neuts % (Manual) Baso # (Auto) Lymphocytes % (Manual) Monocytes % (Manual) Eosinophils % (Manual) Basophils % (Manual) Seg Neutrophils # Seg Neutrophils # Man Lymphocytes # (Manual) Monocytes # (Manual) Eosinophils # (Manual) Nucleated RBC % Basophils # (Manual) APTT Heparin Anti-Xa Level ABG pH POC ABG pO2 ABG pO2 ABG HCO3 ABG O2 Saturation ABG Base Excess POC ABG pCO2 ABG Hemoglobin ABG Oxyhemoglobin Oxyhemoglobin Sodium 153 H Potassium 3.5 L Chloride Carbon Dioxide 34 H BUN Creatinine 0.6 L Glucose 121 H POC Glucose 121 H 126 H Lactic Acid Calcium Phosphorus Magnesium AST ALT Lactate Dehydrogenase CK-MB (CK-2) C-Reactive Protein NT-Pro-B Natriuret Pep Total Protein 5.9 L Albumin 2.4 L Urine WBC (Auto) 01/07/20 01/08/20 01/08/20 18:12 00:03 05:41 WBC RBC Hgb Hct MCHC RDW MCH Lymph % (Auto) [place] % (Auto) [place] # Eos # Lymph # (Auto) [place] # (Auto) Eos # (Auto) Seg Neutrophils % Seg Neuts % (Manual) Baso # (Auto) Lymphocytes % (Manual) Monocytes % (Manual) Eosinophils % (Manual) Basophils % (Manual) Seg Neutrophils # Seg Neutrophils # Man Lymphocytes # (Manual) Monocytes # (Manual) Eosinophils # (Manual) Nucleated RBC % Basophils # (Manual) APTT Heparin Anti-Xa Level ABG pH POC ABG pO2 ABG pO2 ABG HCO3 ABG O2 Saturation ABG Base Excess POC ABG pCO2 ABG Hemoglobin ABG Oxyhemoglobin Oxyhemoglobin Sodium Potassium Chloride Carbon Dioxide BUN Creatinine Glucose POC Glucose 124 H 130 H 138 H Lactic Acid Calcium Phosphorus Magnesium AST ALT Lactate Dehydrogenase CK-MB (CK-2) C-Reactive Protein NT-Pro-B Natriuret Pep Total Protein Albumin Urine WBC (Auto) 01/08/20 01/08/20 01/08/20 09:28 11:42 18:21 WBC RBC Hgb Hct MCHC RDW MCH Lymph % (Auto) [place] % (Auto) [place] # Eos # Lymph # (Auto) [place] # (Auto) Eos # (Auto) Seg Neutrophils % Seg Neuts % (Manual) Baso # (Auto) Lymphocytes % (Manual) Monocytes % (Manual) Eosinophils % (Manual) Basophils % (Manual) Seg Neutrophils # Seg Neutrophils # Man Lymphocytes # (Manual) Monocytes # (Manual) Eosinophils # (Manual) Nucleated RBC % Basophils # (Manual) APTT Heparin Anti-Xa Level ABG pH POC ABG pO2 ABG pO2 ABG HCO3 ABG O2 Saturation ABG Base Excess POC ABG pCO2 ABG Hemoglobin ABG Oxyhemoglobin Oxyhemoglobin Sodium Potassium Chloride Carbon Dioxide BUN Creatinine Glucose POC Glucose 181 H 150 H 129 H Lactic Acid Calcium Phosphorus Magnesium AST ALT Lactate Dehydrogenase CK-MB (CK-2) C-Reactive Protein NT-Pro-B Natriuret Pep Total Protein Albumin Urine WBC (Auto) 01/08/20 01/08/20 01/09/20 19:25 23:55 04:11 WBC RBC 3.43 L Hgb 8.9 L Hct 28.7 L MCHC 31 L RDW 17.6 H MCH 26 L Lymph % (Auto) [place] % (Auto) 8.6 H [place] # Eos # Lymph # (Auto) [place] # (Auto) Eos # (Auto) Seg Neutrophils % Seg Neuts % (Manual) Baso # (Auto) Lymphocytes % (Manual) Monocytes % (Manual) Eosinophils % (Manual) Basophils % (Manual) Seg Neutrophils # Seg Neutrophils # Man Lymphocytes # (Manual) Monocytes # (Manual) Eosinophils # (Manual) Nucleated RBC % Basophils # (Manual) APTT Heparin Anti-Xa Level ABG pH POC ABG pO2 ABG pO2 ABG HCO3 ABG O2 Saturation ABG Base Excess POC ABG pCO2 ABG Hemoglobin ABG Oxyhemoglobin Oxyhemoglobin Sodium Potassium Chloride Carbon Dioxide BUN Creatinine 0.7 L Glucose 117 H POC Glucose 132 H Lactic Acid Calcium Phosphorus Magnesium AST ALT Lactate Dehydrogenase CK-MB (CK-2) C-Reactive Protein NT-Pro-B Natriuret Pep Total Protein Albumin Urine WBC (Auto) 01/09/20 01/09/20 01/09/20 04:11 05:38 22:58 WBC RBC Hgb Hct MCHC RDW MCH Lymph % (Auto) [place] % (Auto) [place] # Eos # Lymph # (Auto) [place] # (Auto) Eos # (Auto) Seg Neutrophils % Seg Neuts % (Manual) Baso # (Auto) Lymphocytes % (Manual) Monocytes % (Manual) Eosinophils % (Manual) Basophils % (Manual) Seg Neutrophils # Seg Neutrophils # Man Lymphocytes # (Manual) Monocytes # (Manual) Eosinophils # (Manual) Nucleated RBC % Basophils # (Manual) APTT Heparin Anti-Xa Level ABG pH POC ABG pO2 ABG pO2 ABG HCO3 ABG O2 Saturation ABG Base Excess POC ABG pCO2 ABG Hemoglobin ABG Oxyhemoglobin Oxyhemoglobin Sodium 147 H Potassium 3.3 L D Chloride Carbon Dioxide 32 H BUN Creatinine 0.6 L Glucose 106 H POC Glucose 107 H 113 H Lactic Acid Calcium Phosphorus Magnesium AST ALT Lactate Dehydrogenase CK-MB (CK-2) C-Reactive Protein NT-Pro-B Natriuret Pep Total Protein Albumin Urine WBC (Auto) 01/10/20 01/10/20 04:05 11:36 WBC RBC Hgb Hct MCHC RDW MCH Lymph % (Auto) [place] % (Auto) [place] # Eos # Lymph # (Auto) [place] # (Auto) Eos # (Auto) Seg Neutrophils % Seg Neuts % (Manual) Baso # (Auto) Lymphocytes % (Manual) Monocytes % (Manual) Eosinophils % (Manual) Basophils % (Manual) Seg Neutrophils # Seg Neutrophils # Man Lymphocytes # (Manual) Monocytes # (Manual) Eosinophils # (Manual) Nucleated RBC % Basophils # (Manual) APTT Heparin Anti-Xa Level ABG pH POC ABG pO2 ABG pO2 ABG HCO3 ABG O2 Saturation ABG Base Excess POC ABG pCO2 ABG Hemoglobin ABG Oxyhemoglobin Oxyhemoglobin Sodium Potassium Chloride Carbon Dioxide BUN Creatinine 0.7 L Glucose 110 H POC Glucose 129 H Lactic Acid Calcium Phosphorus Magnesium AST ALT Lactate Dehydrogenase CK-MB (CK-2) C-Reactive Protein NT-Pro-B Natriuret Pep Total Protein Albumin Urine WBC (Auto) Chest x-ray: pending Allied health notes reviewed: nursing
--- NOTE | 2020-01-10 14:52 | Progress Note ---
Assessment and Plan -Partial SBO, resolved -Acute LLL PE -Acute RLE DVT -Persistent fevers; secondary to sepsis and acute PE/DVT -Severe sepsis; secondary to bilateral pneumonia, persistent fevers -Acute hypoxemic respiratory failure, on vent unable to wean -Bilateral pneumonia, community acquired, -Aspiration Pneumonia -Sustained SVT, on amiodarone -Acute on chronic systolic congestive heart failure -History of cerebrovascular accident. -Tobacco use disorder -Alcohol abuse with DT -Acute chronic obstructive pulmonary disease exacerbation. -Hypertension and hypertensive urgency at presentation. -History of arthritis. -Paroxysmal atrial fibrillation -Leukocytosis with possible sepsis. -Lactic acidosis. -Bleeding from ET tube -Oropharyngeal dysphagia -S/P Knee surgery -History of peptic Ulcer Surgery -DVT prophylaxis COVID-19 test; 11/24/2019; negative 11/26/2019; negative Plan Continue ventilatory support - Now s/p trach and PEG Aspiration precautions Continue to adjust amiodarone and metoprolol for suppression of paroxysmal atrial fibrillation. Continue anticoagulation Started back on vancomycin and zosyn BC 03/28 - coag negative staph ?contaminant. Sputum cultures pending. Low-dose Lasix as needed DVT/GI prophy Heparin/Protonix Plan of care reviewed with the patient's nurse BS consulted for partial SBO Closely monitor the patient and adjust management as needed The high probability of a clinically significant, sudden or life threatening deterioration of the [Respiratory, cardiovascular & neurological] system(s) required my full and direct attention, intervention and personal management. The aggregate critical care time was [33] minutes without overlap. Time includes spent on [x] Data Review and interpretation [x] Patient assessment and monitoring of vital signs [x] Documentation [x] Medication orders and management Brief History Patient is a 64-year-old male with known history of hypertension, COPD, history of coronary artery disease, CHF with ejection fraction of 20 to 25% in August 2018 presenting to the emergency room via EMS complaining of shortness of breath. Patient was found to be hypoxic and in respiratory distress. Patient was placed on CPAP in route to the hospital. Oxygen saturation was said to be 88%. Started on Solu-Medrol, Lasix and magnesium in ED, patient was also found to be lethargic with an oxygen saturation of about 91% on CPAP. He was subsequently intubated. Work-up in the emergency room including chest x-ray reveals bilateral pneumonia. He had an elevated white count of 14 and also had an elevated BNP. Patient admitted to the ICU and placed on empiric IV antibiotics for pneumonia. He tested negative for COVID-19 and placed on isolation precautions. Remains intubated on ventilatory support, sputum cultures positive for Pseudomonas, ID treated with cefepime and Vanco. His hospital course became complicated with acute PE, DVT, paroxysmal atrial fib - placed on chronic anticoagulation. P atient was difficult to wean off, status post trach and PEG, remains on mechanical ventilation with trach tube. He then developed partial small bowel obstruction and not tolerating tube feeding. Placed on NG suction, general surgery following. Symptom improved with medical Mx, TF restarted. 11/25: Leukocytosis improving. Continue current management anticipate extubation possible today. 11/26. Still intubated. Failed SBT yesterday. Repeat COVID-19 test is negative. 11/27. CT head ordered for possible neuro status change is negative. More responsive as the day progressed as per RN. Chest xray today shows interval improvement. He is still on antibiotics - will complete regimen today. 11/28: Considering difficult extubation and severe cardiomyopathy, will obtain cardiology consult. Aspiration precautions, tube feeds held, continue antibiotics. 11/29: Still with intermittent fever but improving imaging, continue diuresis. 11/30; Extremely agitated when placed on PSV- SVT, hypertension. Patiet ac knowledged that he drinks. IV Ativan given, CIWA protocol initiated. 12 lead ordered showed SVT, one dose of amiodarone ordered. continue to follow up cardiology recommendation 12/01: Patient remains on mechanical ventilation, getting SBT trial. Remains in SVT, started on amiodarone drip by cardiology. 12/02; patient is on mechanical ventilation and on spontaneous breathing trial. Cardiology started the patient on PO amiodarone. Patient is on cefepime. 12/03: patient is on mechanical ventilation. Cardiology started the patient on PO amiodarone for SVT. Patient is on cefepime, no fever overnight. 12/04: Patient is sedated and on mechanical ventilation. Patient had fever yesterday afternoon 102.3, ID changed his cefepime to meropenem. Heart rate is controlled, cardiology is following. Patient has paroxysmal atrial fibrillation and on amiodarone and metoprolol, subcu heparin for anticoagulation and will need oral anticoagulation once stable. 12/05: Sputum cultures positive for Pseudomonas, ID following 12/06; patient is febrile T-max 24 hours 102 F ,ID change antibiotics to cefepime and Vancomycin 12/07: resumed care. Na 149 today, start on 1/2 NS. cont current care 12/08: remains in a stable sinus rhythm and stable blood pressure, continue supportive care. wean off vent as tolerated. persistent fever - ordered CTA chest 12/09: noted bloody discharges from ET tube last night. CTA and LE venous doppler positive for acute PE and DVT. resume heparin drip, consult vascular for poss ible EKOS/ IVC filter. monitor h/h. cont SBT trial, wean off vent as tolerated. called but no answer 12/10: cont heparin drip for acute PE and DVT, follow vascular recommendation. monitor h/h, wean off vent as tolerated 12/11: o/n had bleeding from ET tube, cont to monitor h/h. vascular recommending medical Mx. called ; Nicolle Araiza [phone]. 12/12: H&H remained stable, patient on heparin drip. Discussed with yesterday. Discussed with critical care attending. Patient not tolerating SBT trial. Continue to wean off from vent as tolerated, follow clinically. Tolerating tube feeding 12/13: Continue heparin drip, wean off from vent as tolerated. Discussed with pulmonary attending if no improvement by the end of 3 weeks of intubation patient may need trach and PEG. Continue to provide supportive care, follow CBC and BMP. 12/14: Stop cefepime today, wean off from vent as tolerated. cont Heparin infusion, while monitoring for bleeding 12/15: Patient is not tolerating SBT trial, becoming apnic on CPAP. May need to place on trach and PEG. Continue heparin drip, monitor off antibiotics 12/16. Still maintained on vent. May need PEG and trach as her has been failed SBTs 12/17. Had low UO overnight. Started on tamsulosin. May need PEG and trach - defer to pulm. 12/18-. Plan for US thoracentesis to help with weaning. Remains on heparin drip for VTE. 12/20. Discussed with spouse today. He will get thoracentesis today. INR/PTT ordered. Heparin drip held. 12/21: planned for trach and PEG, cont supportive care, thoracentesis cancelled 12/22: cont supportive care, wean off from vent, daily SBT 12/23: tolerating SBT, possible extubation soon. cont supportive care 12/24: wean off vent as tolerated, daily SBT, follow clinically 12/25; cont to monitor, wean off vent as tolerated 12/26: Continue to monitor wean off vent as tolerated patient is tolerating SBT trial but not ready to wean off. 12/27: need trach and PEG, will f/u with GS, cont supportive care 12/28: pending trach/PEG 12/29: plan for trach and PEG on Saturday 12/30: Plan for trach and PEG. Temp 101F. Blood cultures, urinalysis and chest xray ordered. 12/31. Had afib with RVR overnight. Metoprolol dose has been increased. He is still on amiodarone. Plan for PEG tube placement today. Repeat chest x-ray shows worsening infiltrates. Started on the Lasix. Monitor fever now. Blood cultures negative so far. Urinalysis pending 01/01. Started on antibiotics as he had another fever. On vancomycin and zosyn. ID consulted. HR still in the 100s. Had trach and PEG placement on 12/31 with no complications. BC 03/28 - Coag negative staph? contaminant. 01/02. On antibiotics. ID consulted. HR still high. Cardiology adjusting HR control medications. 01/03. HR better. Heparin switched to DOAC. HR better. Started on bumex 01/04: c/o abdominal pain, not tolerating TF, had projectile vomiting few times. Abd xry/CT abd suggestive of partial SBO, reconsult surgery, place NG with suction, start iv fluid. 01/05; Pt stable. NGT output 650cc over 24 hours, bilious. No f/c, WBC within normal limits. cont NG suction and cont to hold TF 01/06: Abs series - mild improvement in small bowel distension in mid abdomen, normal gas/stool pattern in colon. NGT in duodenum. Continue to hold tube feeding, maintain NG tube with low intermittent suction. Patient's was updated by phone. Continue to provide supportive care and monitor clinically. 01/07: +BMs today and NGT/PEG output appears more gastric today. Plan to clamp NGT, if tolerates start TF from tomorrow. cont supportive care. 01/08; Gastric output decreased over last 24 hours. NGT has been clamped x 24 hours. plan to dc NGT and to start TTF via PEG - vital HF @10cc/hr 01/09: clinically stable, tolerating TF. monitor BMP, wean off from vent as tolerated Subjective Date of service: 01/10/20 Principal diagnosis: Ac hypoxemic resp failure; Pneumonia; PUI COVID-19; CHF; COPD; HTN Interval history: Patient seen and examined Patient intubated on trach Discussed with RN at the bedside H/H STABLE, Objective - Exam Narrative Exam: General appearance: Present: well-nourished, opens eyes to names and follows minor command - EENT Eyes: Present: PERRL, EOM intact. Absent: scleral icterus ENT: clear oral mucosa, dentition normal - Neck Neck: Present: supple, normal ROM - Respiratory Respiratory effort: normal, mechanical ventilation with trach Respiratory: bilateral: rales - Cardiovascular Rhythm: regular Heart Sounds: Present: S1 & S2, tachycardic. Absent: gallop, systolic murmur, diastolic murmur, rub - Extremities Extremities: no ischemia, pulses intact, pulses symmetrical, No edema, Full ROM Peripheral Pulses: within normal limits - Abdominal General gastrointestinal: Present: soft, nondistended, + bowel sounds. - Integumentary Integumentary: Present: clear, warm, dry. Absent: rash - Musculoskeletal Musculoskeletal: no joint swelling - Psychiatric Psychiatric: no agitation Neurology: no focal deficits - Constitutional Vitals: Vital Signs - 12hr 01/10/20 01/10/20 01/10/20 03:00 03:31 04:00 Temperature 97.5 F L Pulse Rate 80 77 78 Pulse Rate [ 68 From Monitor] Respiratory 15 21 18 Rate Blood Pressure 114/74 138/91 106/67 O2 Sat by Pulse 98 97 Oximetry O2 Sat by Pulse Oximetry [ Assessment] 01/10/20 01/10/20 01/10/20 04:19 04:31 05:00 Temperature Pulse Rate 73 72 71 Pulse Rate [ From Monitor] Respiratory 22 25 H Rate Blood Pressure 106/67 84/54 81/52 O2 Sat by Pulse 99 96 98 Oximetry O2 Sat by Pulse Oximetry [ Assessment] 10/18/20 10/18/20 10/18/20 05:25 05:30 06:00 Temperature Pulse Rate 70 67 Pulse Rate [ From Monitor] Respiratory 25 H 21 Rate Blood Pressure 85/53 79/51 O2 Sat by Pulse 98 100 Oximetry O2 Sat by Pulse 100 Oximetry [ Assessment] 01/10/20 01/10/20 01/10/20 06:30 06:34 07:01 Temperature Pulse Rate 73 70 93 H Pulse Rate [ From Monitor] Respiratory 15 22 Rate Blood Pressure 86/56 83/56 116/83 O2 Sat by Pulse 99 100 Oximetry O2 Sat by Pulse Oximetry [ Assessment] 01/10/20 01/10/20 01/10/20 07:30 08:00 08:01 Temperature 98.4 F Pulse Rate 74 77 86 Pulse Rate [ 86 From Monitor] Respiratory 27 H 18 21 Rate Blood Pressure 88/57 88/57 108/75 O2 Sat by Pulse 98 99 94 Oximetry O2 Sat by Pulse Oximetry [ Assessment] 01/10/20 01/10/20 01/10/20 08:09 08:30 09:00 Temperature Pulse Rate 81 81 Pulse Rate [ From Monitor] Respiratory 21 16 Rate Blood Pressure 96/67 103/75 O2 Sat by Pulse 99 99 Oximetry O2 Sat by Pulse 98 Oximetry [ Assessment] 01/10/20 01/10/20 01/10/20 09:30 10:00 10:30 Temperature Pulse Rate 78 79 75 Pulse Rate [ From Monitor] Respiratory 24 19 18 Rate Blood Pressure 98/70 98/76 93/64 O2 Sat by Pulse 99 100 Oximetry O2 Sat by Pulse Oximetry [ Assessment] 01/10/20 01/10/20 01/10/20 11:00 11:08 11:31 Temperature Pulse Rate 73 73 74 Pulse Rate [ 73 From Monitor] Respiratory 17 17 16 Rate Blood Pressure 93/66 98/68 O2 Sat by Pulse 98 98 100 Oximetry O2 Sat by Pulse Oximetry [ Assessment] 01/10/20 01/10/20 01/10/20 11:43 12:00 12:30 Temperature 98.7 F Pulse Rate 78 78 Pulse Rate [ From Monitor] Respiratory 22 21 Rate Blood Pressure 103/70 103/73 O2 Sat by Pulse 98 99 Oximetry O2 Sat by Pulse Oximetry [ Assessment] 01/10/20 01/10/20 01/10/20 12:40 13:00 13:30 Temperature Pulse Rate 77 78 77 Pulse Rate [ From Monitor] Respiratory 21 22 22 Rate Blood Pressure 100/69 103/70 100/69 O2 Sat by Pulse 100 100 Oximetry O2 Sat by Pulse Oximetry [ Assessment] 01/10/20 01/10/20 13:38 14:00 Temperature Pulse Rate 78 75 Pulse Rate [ From Monitor] Respiratory 19 Rate Blood Pressure 103/70 105/69 O2 Sat by Pulse 100 Oximetry O2 Sat by Pulse Oximetry [ Assessment] - Labs CBC & Chem 7: 01/09/20 04:11 01/10/20 04:05 Labs: Abnormal lab results 01/09/20 01/10/20 01/10/20 Range/Units 22:58 04:05 11:36 Creatinine 0.7 L (0.8-1.3) mg/dL Glucose 110 H (75-100) mg/dL POC Glucose 113 H 129 H (70-105) HEART Score - HEART Score Troponin: Troponin T < 0.010 ng/mL (0.00-0.029) 11/24/19 02:53
--- NOTE | 2020-01-10 15:32 | Progress Note ---
Assessment and Plan 64 yo M with pSBO vs ileus Pt stable. Figu[place]a TTF for 24 hours. Plan: 1. adv vital HF to 20cc/hr - do not advance 2. suppository daily along with stool softener, if continues to figueroa TF will add MOM tomorrow 3. IVF - continue to bolus for low BP if needed 4. monitor lytes and replace as needed 5. Recommend OOB to chair if possible Thank you. Please call with questions. Subjective Date of service: 01/10/20 Narrative: Pt seen and examined. Has no complaints. Denies abdominal pain, n/v. No BM recorded yesterday or today. Per patient's RN, appears to be tolerating TF Objective Vital Signs - 12hr 01/10/20 01/10/20 01/10/20 03:31 04:00 04:19 Temperature 97.5 F L Pulse Rate 77 78 73 Pulse Rate [ 68 From Monitor] Respiratory 21 18 Rate Blood Pressure 138/91 106/67 106/67 O2 Sat by Pulse 98 97 99 Oximetry O2 Sat by Pulse Oximetry [ Assessment] 01/10/20 01/10/20 01/10/20 04:31 05:00 05:25 Temperature Pulse Rate 72 71 Pulse Rate [ From Monitor] Respiratory 22 25 H Rate Blood Pressure 84/54 81/52 O2 Sat by Pulse 96 98 Oximetry O2 Sat by Pulse 100 Oximetry [ Assessment] 01/10/20 01/10/20 01/10/20 05:30 06:00 06:30 Temperature Pulse Rate 70 67 73 Pulse Rate [ From Monitor] Respiratory 25 H 21 15 Rate Blood Pressure 85/53 79/51 86/56 O2 Sat by Pulse 98 100 99 Oximetry O2 Sat by Pulse Oximetry [ Assessment] 01/10/20 01/10/20 01/10/20 06:34 07:01 07:30 Temperature Pulse Rate 70 93 H 74 Pulse Rate [ From Monitor] Respiratory 22 27 H Rate Blood Pressure 83/56 116/83 88/57 O2 Sat by Pulse 100 98 Oximetry O2 Sat by Pulse Oximetry [ Assessment] 01/10/20 01/10/20 01/10/20 08:00 08:01 08:09 Temperature 98.4 F Pulse Rate 77 86 Pulse Rate [ 86 From Monitor] Respiratory 18 21 Rate Blood Pressure 88/57 108/75 O2 Sat by Pulse 99 94 Oximetry O2 Sat by Pulse 98 Oximetry [ Assessment] 01/10/20 01/10/20 01/10/20 08:30 09:00 09:30 Temperature Pulse Rate 81 81 78 Pulse Rate [ From Monitor] Respiratory 21 16 24 Rate Blood Pressure 96/67 103/75 98/70 O2 Sat by Pulse 99 99 99 Oximetry O2 Sat by Pulse Oximetry [ Assessment] 01/10/20 01/10/20 01/10/20 10:00 10:30 11:00 Temperature Pulse Rate 79 75 73 Pulse Rate [ From Monitor] Respiratory 19 18 17 Rate Blood Pressure 98/76 93/64 93/66 O2 Sat by Pulse 100 98 Oximetry O2 Sat by Pulse Oximetry [ Assessment] 01/10/20 01/10/20 01/10/20 11:08 11:31 11:43 Temperature 98.7 F Pulse Rate 73 74 Pulse Rate [ 73 From Monitor] Respiratory 17 16 Rate Blood Pressure 98/68 O2 Sat by Pulse 98 100 Oximetry O2 Sat by Pulse Oximetry [ Assessment] 01/10/20 01/10/20 01/10/20 12:00 12:30 12:40 Temperature Pulse Rate 78 78 77 Pulse Rate [ From Monitor] Respiratory 22 21 21 Rate Blood Pressure 103/70 103/73 100/69 O2 Sat by Pulse 98 99 100 Oximetry O2 Sat by Pulse Oximetry [ Assessment] 01/10/20 01/10/20 01/10/20 13:00 13:30 13:38 Temperature Pulse Rate 78 77 78 Pulse Rate [ From Monitor] Respiratory 22 22 Rate Blood Pressure 103/70 100/69 103/70 O2 Sat by Pulse 100 Oximetry O2 Sat by Pulse Oximetry [ Assessment] 01/10/20 01/10/20 01/10/20 14:00 14:30 15:00 Temperature Pulse Rate 75 78 82 Pulse Rate [ From Monitor] Respiratory 19 21 12 Rate Blood Pressure 105/69 100/70 111/78 O2 Sat by Pulse 100 100 97 Oximetry O2 Sat by Pulse Oximetry [ Assessment] - General physical appearance Narrative Exam: Gen: Awake and alert. NAD ENT: Trach in place, site c/d/i CV: S1, S2+ Resp: even and unlabored Abd: soft, protuberant, mildly distended, NT Ext: edema - sánchez with dark kathryn urine - Labs 01/09/20 04:11 01/10/20 04:05 Diabetes panel 01/10/20 Range/Units 04:05 Sodium 142 (137-145) mmol/L Potassium 3.9 (3.6-5.0) mmol/L Chloride 102.0 (98-107) mmol/L Carbon Dioxide 29 (22-30) mmol/L BUN 11 (9-20) mg/dL Creatinine 0.7 L (0.8-1.3) mg/dL Glucose 110 H (75-100) mg/dL Calcium 8.7 (8.4-10.2) mg/dL Calcium panel 01/10/20 Range/Units 04:05 Calcium 8.7 (8.4-10.2) mg/dL Pituitary panel 01/10/20 Range/Units 04:05 Sodium 142 (137-145) mmol/L Potassium 3.9 (3.6-5.0) mmol/L Chloride 102.0 (98-107) mmol/L Carbon Dioxide 29 (22-30) mmol/L BUN 11 (9-20) mg/dL Creatinine 0.7 L (0.8-1.3) mg/dL Glucose 110 H (75-100) mg/dL Calcium 8.7 (8.4-10.2) mg/dL Adrenal panel 01/10/20 Range/Units 04:05 Sodium 142 (137-145) mmol/L Potassium 3.9 (3.6-5.0) mmol/L Chloride 102.0 (98-107) mmol/L Carbon Dioxide 29 (22-30) mmol/L BUN 11 (9-20) mg/dL Creatinine 0.7 L (0.8-1.3) mg/dL Glucose 110 H (75-100) mg/dL Calcium 8.7 (8.4-10.2) mg/dL
[2020-01-10] MEDS: POLYETHYLENE GLYCOL 3350 17 GM POWDER PO SCH (21:40)
[2020-01-10] MEDS: TAMSULOSIN 0.4 MG CAP PO SCH (21:41)
[2020-01-11] MEDS: DEXTROSE 5% IN WATER 1,000 ML IV SCH (00:01)
[2020-01-11] MEDS: METOPROLOL TARTRATE 25 MG TAB FEEDTUBE SCH ×3 (00:07→12:45)
[2020-01-11] MEDS: METOPROLOL TARTRATE 5 MG/5 ML INJ IV SCH (03:47)
[2020-01-11] MEDS: MORPHINE 2 MG/1 ML INJ IV PRN ×2 (04:28→09:34)
--- NOTE | 2020-01-11 08:48 | Progress Note ---
Assessment and Plan Acute hypoxemic respiratory failure s/p trach on MVS Bilateral pneumonia, community acquired. Acute congestive heart failure exacerbation. History of cerebrovascular accident. Acute chronic obstructive pulmonary disease exacerbation. Hypertension and hypertensive urgency at presentation. History of arthritis. Oropharyngeal dysphagia Right Lext DVT Pulmonary embolism Trach care, airway clearance, secretion management SATs and SBTs daily. Replete potassium, keep at 4, magnesium at 2 and Phos at 2.5 Conitnue feedings, advance as tolerated Stop [id number], improved hypernatremia and he is tolerating tube feedings Stop therapeutic Lovenox, resume Apixaban Bowel regimen Monitor closely CXR, ABG as clinically indicated Continue Precedex for agitation management Continue accuchecks with glycemic control per SSI for target blood glucose goal of 140-180 mg/dL while critically ill; Avoid hypoglycemia - continue to monitor renal function, hemodynamics and electrolyte profile - continue to wean oxygen for O2 sats > 90% - continue bronchodilators with pulmonary hygiene per RT - VAP bundle addressed (Aspiration precautions, HOB >40) - continue to wean per pulmonary driven protocols - continue prn analgesia per CPOT score - follow clinically re: fever curves / trend WBC - Avoid delirium (no benzodiazepines if they can be avoided) - continue stress ulcer prophylaxis with Famotidine BID - continue mobility protocols for pressure ulcer prophylaxis - continue fall precautions - Supportive transfusions as indicated to keep HgB>7g/dL - Continue to monitor neurologic function - Continue chronic home medications as clinically indicated - Continue all supportive care CONDITION: CRITICAL PROGNOSIS: GUARDED CODE STATUS: FULL CODE The high probability of a clinically significant, sudden or life threatening deterioration of the [Respiratory, cardiovascular, GI & neurological] system(s) required my full and direct attention, intervention and personal management. The aggregate critical care time was [32] minutes without overlap. Time includes spent on [x] Data Review and interpretation [x] Patient assessment and monitoring of vital signs [x] Documentation [x] Medication orders and management Subjective Date of service: 01/11/20 Principal diagnosis: Ac hypoxemic resp failure; Pneumonia; PUI COVID-19; CHF; COPD; HTN Interval history: Patient is seen today for: Acute hypoxemic respiratory failure; Adan. Pneumonia (CAP); PUI COVID-19 infection; AE-CHF; AE-COPD; H/O CVA; HTN; PE, DVT Seen and examined at bedside; 24 hour events reviewed; nursing and respiratory care staff consulted; no adverse overnight events reported to me; resting peacefully in bed;s/p trach on PSV PS 10/6, awake and alert, tube feedings at 20ml, on [id number], no bowel movement No fevers. Objective Vital Signs - 12hr 01/10/20 01/10/20 01/10/20 20:59 21:00 21:15 Temperature Pulse Rate 77 77 78 Pulse Rate [ From Monitor] Respiratory 23 23 Rate Respiratory Rate [Abdomen] Blood Pressure 109/78 109/78 109/75 O2 Sat by Pulse 99 98 99 Oximetry O2 Sat by Pulse Oximetry [ Assessment] 01/10/20 01/10/20 01/10/20 21:30 21:45 22:00 Temperature Pulse Rate 75 76 77 Pulse Rate [ From Monitor] Respiratory 21 21 22 Rate Respiratory Rate [Abdomen] Blood Pressure 102/75 107/75 112/80 O2 Sat by Pulse 99 100 99 Oximetry O2 Sat by Pulse Oximetry [ Assessment] 01/10/20 01/10/20 01/10/20 22:15 22:19 22:30 Temperature Pulse Rate 73 71 73 Pulse Rate [ From Monitor] Respiratory 21 21 20 Rate Respiratory Rate [Abdomen] Blood Pressure 90/64 90/64 95/66 O2 Sat by Pulse 98 100 100 Oximetry O2 Sat by Pulse Oximetry [ Assessment] 01/10/20 01/10/20 01/10/20 22:45 23:00 23:15 Temperature Pulse Rate 72 73 73 Pulse Rate [ From Monitor] Respiratory 20 20 21 Rate Respiratory Rate [Abdomen] Blood Pressure 85/62 93/61 94/64 O2 Sat by Pulse 99 100 100 Oximetry O2 Sat by Pulse Oximetry [ Assessment] 01/10/20 01/10/20 01/11/20 23:30 23:45 00:00 Temperature 97.8 F Pulse Rate 73 72 70 Pulse Rate [ 70 From Monitor] Respiratory 21 21 25 H Rate Respiratory Rate [Abdomen] Blood Pressure 91/61 93/58 87/60 O2 Sat by Pulse 99 98 100 Oximetry O2 Sat by Pulse Oximetry [ Assessment] 01/11/20 01/11/20 01/11/20 00:07 00:11 00:15 Temperature Pulse Rate 72 70 69 Pulse Rate [ From Monitor] Respiratory 23 Rate Respiratory Rate [Abdomen] Blood Pressure 87/60 87/60 86/61 O2 Sat by Pulse 100 96 Oximetry O2 Sat by Pulse Oximetry [ Assessment] 01/11/20 01/11/20 01/11/20 00:17 00:30 00:45 Temperature Pulse Rate 69 85 71 Pulse Rate [ From Monitor] Respiratory 23 21 Rate Respiratory Rate [Abdomen] Blood Pressure 112/58 100/66 O2 Sat by Pulse 88 89 Oximetry O2 Sat by Pulse Oximetry [ Assessment] 01/11/20 01/11/20 01/11/20 01:00 01:15 01:30 Temperature Pulse Rate 81 76 74 Pulse Rate [ From Monitor] Respiratory 21 21 22 Rate Respiratory Rate [Abdomen] Blood Pressure 93/75 86/68 89/65 O2 Sat by Pulse 89 90 91 Oximetry O2 Sat by Pulse Oximetry [ Assessment] 01/11/20 01/11/20 01/11/20 01:45 02:00 02:15 Temperature Pulse Rate 76 76 75 Pulse Rate [ From Monitor] Respiratory 19 21 20 Rate Respiratory Rate [Abdomen] Blood Pressure 92/65 108/68 106/72 O2 Sat by Pulse 91 90 91 Oximetry O2 Sat by Pulse Oximetry [ Assessment] 01/11/20 01/11/20 01/11/20 02:30 02:45 03:00 Temperature Pulse Rate 76 77 79 Pulse Rate [ From Monitor] Respiratory 21 19 20 Rate Respiratory Rate [Abdomen] Blood Pressure 110/65 104/69 111/78 O2 Sat by Pulse 91 92 Oximetry O2 Sat by Pulse Oximetry [ Assessment] 01/11/20 01/11/20 01/11/20 03:15 03:30 03:45 Temperature Pulse Rate 79 80 78 Pulse Rate [ From Monitor] Respiratory 21 19 19 Rate Respiratory Rate [Abdomen] Blood Pressure 108/73 113/74 107/73 O2 Sat by Pulse 95 94 93 Oximetry O2 Sat by Pulse Oximetry [ Assessment] 01/11/20 01/11/20 01/11/20 03:47 04:00 04:15 Temperature 98.3 F Pulse Rate 79 79 81 Pulse Rate [ 79 From Monitor] Respiratory 17 20 Rate Respiratory 22 Rate [Abdomen] Blood Pressure 107/73 115/75 114/75 O2 Sat by Pulse 95 95 Oximetry O2 Sat by Pulse Oximetry [ Assessment] 01/11/20 01/11/20 01/11/20 04:30 04:45 04:51 Temperature Pulse Rate 81 79 81 Pulse Rate [ From Monitor] Respiratory 22 22 Rate Respiratory Rate [Abdomen] Blood Pressure 124/79 123/83 123/83 O2 Sat by Pulse 93 92 96 Oximetry O2 Sat by Pulse 96 Oximetry [ Assessment] 01/11/20 01/11/20 01/11/20 05:00 05:15 05:30 Temperature Pulse Rate 78 78 76 Pulse Rate [ From Monitor] Respiratory 21 21 20 Rate Respiratory Rate [Abdomen] Blood Pressure 112/75 105/72 105/70 O2 Sat by Pulse 97 99 98 Oximetry O2 Sat by Pulse Oximetry [ Assessment] 01/11/20 01/11/20 01/11/20 05:45 06:00 06:15 Temperature Pulse Rate 75 78 77 Pulse Rate [ From Monitor] Respiratory 21 23 20 Rate Respiratory Rate [Abdomen] Blood Pressure 98/65 108/72 100/68 O2 Sat by Pulse 98 100 Oximetry O2 Sat by Pulse Oximetry [ Assessment] 01/11/20 01/11/20 01/11/20 06:53 08:12 08:15 Temperature Pulse Rate 77 78 78 Pulse Rate [ From Monitor] Respiratory 19 Rate Respiratory Rate [Abdomen] Blood Pressure 113/78 107/72 105/74 O2 Sat by Pulse 100 100 Oximetry O2 Sat by Pulse Oximetry [ Assessment] Constitutional: no acute distress, asleep (sedated), other (elelderly and obese male, normocephalic with mildly increased respiratory effort at rest on MVS) Eyes: non-icteric ENT: oropharynx moist, other (trach to MVS, NGT to LIS) Neck: supple, no JVD Effort: mildly labored Ascultation: Bilateral: clear, diminished breath sounds, rhonchi, other (mild secretions) Percussion: Bilateral: not dull Cardiovascular: irregular rhythm, other (S1,S2) Gastrointestinal: normoactive bowel sounds, soft, non-tender, other (distended, PEG in place) Integumentary: normal Extremities: no cyanosis, pulses normal, no ischemia or petechiae, edema (bilateral upper ) Neurologic: non-focal exam (moves extremities), pupils equal and round Psychiatric: mood appropriate, affect normal CBC and BMP: 01/09/20 04:11 01/10/20 04:05 ABG, PT/INR, D-dimer: ABG ABG pH 7.415 pH Units (7.350-7.450) 01/03/20 18:30 POC ABG pCO2 52.9 mmHg (32.0-48.0) H 12/22/19 03:22 ABG pCO2 57.6 mm Hg 01/03/20 18:30 POC ABG pO2 52.3 mmHg (83-108) L 12/22/19 03:22 ABG pO2 70.7 mm Hg (80.0-90.0) L 01/03/20 18:30 POC ABG HCO3 33.4 12/22/19 03:22 ABG O2 Saturation 94.4 % (95.0-99.0) L 01/03/20 18:30 PT/INR, D-dimer PT 13.8 Sec. (12.2-14.9) 12/21/19 10:13 INR 1.05 (0.87-1.13) 12/21/19 10:13 Abnormal lab findings: Abnormal Labs 11/24/19 11/24/19 11/24/19 02:53 02:53 03:45 WBC 14.3 H RBC Hgb Hct MCHC RDW 17.2 H MCH Lymph % (Auto) Island % (Auto) Island # Eos # Lymph # (Auto) [place] # (Auto) Eos # (Auto) Seg Neutrophils % Seg Neuts % (Manual) Baso # (Auto) Lymphocytes % (Manual) Monocytes % (Manual) Eosinophils % (Manual) Basophils % (Manual) Seg Neutrophils # Seg Neutrophils # Man 8.3 H Lymphocytes # (Manual) Monocytes # (Manual) 0.9 H Eosinophils # (Manual) Nucleated RBC % Basophils # (Manual) APTT Heparin Anti-Xa Level ABG pH 7.313 L POC ABG pO2 ABG pO2 102.8 H ABG HCO3 ABG O2 Saturation ABG Base Excess -2.9 L POC ABG pCO2 ABG Hemoglobin ABG Oxyhemoglobin Oxyhemoglobin 93.9 L Sodium Potassium Chloride Carbon Dioxide BUN Creatinine Glucose 195 H POC Glucose Lactic Acid Calcium Phosphorus Magnesium AST ALT Lactate Dehydrogenase CK-MB (CK-2) 4.3 H C-Reactive Protein NT-Pro-B Natriuret Pep 1181 H Total Protein Albumin Urine WBC (Auto) 11/24/19 11/24/19 11/24/19 04:53 04:53 10:37 WBC RBC Hgb Hct MCHC RDW MCH Lymph % (Auto) Island % (Auto) Island # Eos # Lymph # (Auto) [place] # (Auto) Eos # (Auto) Seg Neutrophils % Seg Neuts % (Manual) Baso # (Auto) Lymphocytes % (Manual) Monocytes % (Manual) Eosinophils % (Manual) Basophils % (Manual) Seg Neutrophils # Seg Neutrophils # Man Lymphocytes # (Manual) Monocytes # (Manual) Eosinophils # (Manual) Nucleated RBC % Basophils # (Manual) APTT Heparin Anti-Xa Level ABG pH POC ABG pO2 ABG pO2 ABG HCO3 ABG O2 Saturation ABG Base Excess POC ABG pCO2 ABG Hemoglobin ABG Oxyhemoglobin Oxyhemoglobin Sodium Potassium Chloride Carbon Dioxide BUN Creatinine Glucose 162 H POC Glucose Lactic Acid 2.40 H* 2.50 H* Calcium Phosphorus Magnesium AST ALT Lactate Dehydrogenase 240 H CK-MB (CK-2) C-Reactive Protein NT-Pro-B Natriuret Pep Total Protein Albumin Urine WBC (Auto) 11/24/19 11/24/19 11/24/19 12:21 14:50 19:54 WBC RBC Hgb Hct MCHC RDW MCH Lymph % (Auto) Island % (Auto) Island # Eos # Lymph # (Auto) [place] # (Auto) Eos # (Auto) Seg Neutrophils % Seg Neuts % (Manual) Baso # (Auto) Lymphocytes % (Manual) Monocytes % (Manual) Eosinophils % (Manual) Basophils % (Manual) Seg Neutrophils # Seg Neutrophils # Man Lymphocytes # (Manual) Monocytes # (Manual) Eosinophils # (Manual) Nucleated RBC % Basophils # (Manual) APTT Heparin Anti-Xa Level ABG pH POC ABG pO2 ABG pO2 ABG HCO3 ABG O2 Saturation ABG Base Excess POC ABG pCO2 ABG Hemoglobin ABG Oxyhemoglobin Oxyhemoglobin Sodium Potassium Chloride Carbon Dioxide BUN Creatinine Glucose POC Glucose 145 H 143 H 124 H Lactic Acid Calcium Phosphorus Magnesium AST ALT Lactate Dehydrogenase CK-MB (CK-2) C-Reactive Protein NT-Pro-B Natriuret Pep Total Protein Albumin Urine WBC (Auto) 11/25/19 11/25/19 11/25/19 00:18 03:18 05:11 WBC 13.7 H RBC Hgb Hct MCHC RDW 17.1 H MCH Lymph % (Auto) 10.8 L Island % (Auto) 8.7 H [place] # 1.2 H Eos # Lymph # (Auto) [place] # (Auto) Eos # (Auto) Seg Neutrophils % 80.2 H Seg Neuts % (Manual) Baso # (Auto) Lymphocytes % (Manual) Monocytes % (Manual) Eosinophils % (Manual) Basophils % (Manual) Seg Neutrophils # 11.0 H Seg Neutrophils # Man Lymphocytes # (Manual) Monocytes # (Manual) Eosinophils # (Manual) Nucleated RBC % Basophils # (Manual) APTT Heparin Anti-Xa Level ABG pH 7.333 L POC ABG pO2 ABG pO2 61.2 L ABG HCO3 ABG O2 Saturation 90.2 L ABG Base Excess POC ABG pCO2 ABG Hemoglobin 13.7 L ABG Oxyhemoglobin Oxyhemoglobin 88.2 L Sodium Potassium Chloride Carbon Dioxide BUN Creatinine Glucose POC Glucose 109 H Lactic Acid Calcium Phosphorus Magnesium AST ALT Lactate Dehydrogenase CK-MB (CK-2) C-Reactive Protein NT-Pro-B Natriuret Pep Total Protein Albumin Urine WBC (Auto) 11/25/19 11/25/19 11/26/19 05:11 11:40 03:12 WBC RBC Hgb Hct MCHC RDW MCH Lymph % (Auto) Island % (Auto) Island # Eos # Lymph # (Auto) [place] # (Auto) Eos # (Auto) Seg Neutrophils % Seg Neuts % (Manual) Baso # (Auto) Lymphocytes % (Manual) Monocytes % (Manual) Eosinophils % (Manual) Basophils % (Manual) Seg Neutrophils # Seg Neutrophils # Man Lymphocytes # (Manual) Monocytes # (Manual) Eosinophils # (Manual) Nucleated RBC % Basophils # (Manual) APTT Heparin Anti-Xa Level ABG pH POC ABG pO2 ABG pO2 155.1 H ABG HCO3 27.8 H ABG O2 Saturation ABG Base Excess POC ABG pCO2 ABG Hemoglobin 12.2 L ABG Oxyhemoglobin Oxyhemoglobin Sodium Potassium Chloride Carbon Dioxide BUN 23 H Creatinine Glucose 110 H POC Glucose 108 H Lactic Acid Calcium Phosphorus Magnesium AST ALT Lactate Dehydrogenase CK-MB (CK-2) C-Reactive Protein NT-Pro-B Natriuret Pep Total Protein Albumin Urine WBC (Auto) 11/26/19 11/26/19 11/26/19 06:17 10:43 10:43 WBC 11.4 H RBC Hgb Hct MCHC RDW 17.1 H MCH Lymph % (Auto) Island % (Auto) Island # Eos # Lymph # (Auto) [place] # (Auto) Eos # (Auto) Seg Neutrophils % Seg Neuts % (Manual) Baso # (Auto) Lymphocytes % (Manual) Monocytes % (Manual) Eosinophils % (Manual) Basophils % (Manual) Seg Neutrophils # Seg Neutrophils # Man Lymphocytes # (Manual) Monocytes # (Manual) Eosinophils # (Manual) Nucleated RBC % Basophils # (Manual) APTT Heparin Anti-Xa Level ABG pH POC ABG pO2 ABG pO2 ABG HCO3 ABG O2 Saturation ABG Base Excess POC ABG pCO2 ABG Hemoglobin ABG Oxyhemoglobin Oxyhemoglobin Sodium Potassium Chloride Carbon Dioxide BUN 29 H Creatinine Glucose POC Glucose 107 H Lactic Acid Calcium Phosphorus Magnesium AST ALT Lactate Dehydrogenase CK-MB (CK-2) C-Reactive Protein NT-Pro-B Natriuret Pep Total Protein Albumin Urine WBC (Auto) 11/26/19 11/27/19 11/27/19 17:11 01:53 04:11 WBC RBC Hgb Hct MCHC RDW MCH Lymph % (Auto) Island % (Auto) Island # Eos # Lymph # (Auto) [place] # (Auto) Eos # (Auto) Seg Neutrophils % Seg Neuts % (Manual) Baso # (Auto) Lymphocytes % (Manual) Monocytes % (Manual) Eosinophils % (Manual) Basophils % (Manual) Seg Neutrophils # Seg Neutrophils # Man Lymphocytes # (Manual) Monocytes # (Manual) Eosinophils # (Manual) Nucleated RBC % Basophils # (Manual) APTT Heparin Anti-Xa Level ABG pH POC ABG pO2 ABG pO2 ABG HCO3 29.2 H ABG O2 Saturation ABG Base Excess 3.4 H POC ABG pCO2 ABG Hemoglobin 13.3 L ABG Oxyhemoglobin Oxyhemoglobin 94.5 L Sodium Potassium Chloride Carbon Dioxide BUN Creatinine Glucose POC Glucose 113 H 108 H Lactic Acid Calcium Phosphorus Magnesium AST ALT Lactate Dehydrogenase CK-MB (CK-2) C-Reactive Protein NT-Pro-B Natriuret Pep Total Protein Albumin Urine WBC (Auto) 11/27/19 11/28/19 11/28/19 05:27 05:00 05:25 WBC RBC Hgb Hct MCHC RDW MCH Lymph % (Auto) Island % (Auto) Island # Eos # Lymph # (Auto) [place] # (Auto) Eos # (Auto) Seg Neutrophils % Seg Neuts % (Manual) Baso # (Auto) Lymphocytes % (Manual) Monocytes % (Manual) Eosinophils % (Manual) Basophils % (Manual) Seg Neutrophils # Seg Neutrophils # Man Lymphocytes # (Manual) Monocytes # (Manual) Eosinophils # (Manual) Nucleated RBC % Basophils # (Manual) APTT Heparin Anti-Xa Level ABG pH POC ABG pO2 68.1 L ABG pO2 ABG HCO3 ABG O2 Saturation ABG Base Excess POC ABG pCO2 ABG Hemoglobin ABG Oxyhemoglobin 91.2 L Oxyhemoglobin Sodium Potassium Chloride Carbon Dioxide BUN Creatinine Glucose POC Glucose 111 H 110 H Lactic Acid Calcium Phosphorus Magnesium AST ALT Lactate Dehydrogenase CK-MB (CK-2) C-Reactive Protein NT-Pro-B Natriuret Pep Total Protein Albumin Urine WBC (Auto) 11/28/19 11/28/19 11/28/19 12:08 13:47 13:47 WBC 11.3 H RBC Hgb Hct MCHC RDW 16.1 H MCH Lymph % (Auto) Island % (Auto) 9.9 H [place] # 1.1 H Eos # Lymph # (Auto) [place] # (Auto) Eos # (Auto) Seg Neutrophils % 71.4 H Seg Neuts % (Manual) Baso # (Auto) Lymphocytes % (Manual) Monocytes % (Manual) Eosinophils % (Manual) Basophils % (Manual) Seg Neutrophils # 8.1 H Seg Neutrophils # Man Lymphocytes # (Manual) Monocytes # (Manual) Eosinophils # (Manual) Nucleated RBC % Basophils # (Manual) APTT Heparin Anti-Xa Level ABG pH POC ABG pO2 ABG pO2 ABG HCO3 ABG O2 Saturation ABG Base Excess POC ABG pCO2 ABG Hemoglobin ABG Oxyhemoglobin Oxyhemoglobin Sodium Potassium Chloride Carbon Dioxide BUN 23 H Creatinine Glucose 123 H POC Glucose 112 H Lactic Acid Calcium Phosphorus Magnesium AST ALT Lactate Dehydrogenase CK-MB (CK-2) C-Reactive Protein NT-Pro-B Natriuret Pep Total Protein Albumin 3.7 L Urine WBC (Auto) 11/28/19 11/29/19 11/29/19 17:26 03:55 17:04 WBC RBC Hgb Hct MCHC RDW MCH Lymph % (Auto) Island % (Auto) Island # Eos # Lymph # (Auto) [place] # (Auto) Eos # (Auto) Seg Neutrophils % Seg Neuts % (Manual) Baso # (Auto) Lymphocytes % (Manual) Monocytes % (Manual) Eosinophils % (Manual) Basophils % (Manual) Seg Neutrophils # Seg Neutrophils # Man Lymphocytes # (Manual) Monocytes # (Manual) Eosinophils # (Manual) Nucleated RBC % Basophils # (Manual) APTT Heparin Anti-Xa Level ABG pH POC ABG pO2 ABG pO2 65.7 L ABG HCO3 28.3 H ABG O2 Saturation 93.9 L ABG Base Excess 3.6 H POC ABG pCO2 ABG Hemoglobin 13.3 L ABG Oxyhemoglobin Oxyhemoglobin 91.5 L Sodium Potassium Chloride Carbon Dioxide BUN Creatinine Glucose POC Glucose 123 H 119 H Lactic Acid Calcium Phosphorus Magnesium AST ALT Lactate Dehydrogenase CK-MB (CK-2) C-Reactive Protein NT-Pro-B Natriuret Pep Total Protein Albumin Urine WBC (Auto) 11/30/19 11/30/19 11/30/19 04:17 04:17 04:56 WBC 13.4 H RBC Hgb Hct MCHC RDW 15.6 H MCH Lymph % (Auto) Island % (Auto) Island # Eos # Lymph # (Auto) [place] # (Auto) Eos # (Auto) Seg Neutrophils % Seg Neuts % (Manual) Baso # (Auto) Lymphocytes % (Manual) Monocytes % (Manual) Eosinophils % (Manual) Basophils % (Manual) Seg Neutrophils # Seg Neutrophils # Man Lymphocytes # (Manual) Monocytes # (Manual) Eosinophils # (Manual) Nucleated RBC % Basophils # (Manual) APTT Heparin Anti-Xa Level ABG pH POC ABG pO2 ABG pO2 56.3 L ABG HCO3 29.3 H ABG O2 Saturation 91.5 L ABG Base Excess 4.7 H POC ABG pCO2 ABG Hemoglobin 12.1 L ABG Oxyhemoglobin Oxyhemoglobin 89.2 L Sodium 147 H Potassium Chloride Carbon Dioxide BUN 30 H Creatinine Glucose 124 H POC Glucose Lactic Acid Calcium Phosphorus Magnesium AST ALT Lactate Dehydrogenase CK-MB (CK-2) C-Reactive Protein NT-Pro-B Natriuret Pep Total Protein Albumin 3.8 L Urine WBC (Auto) 11/30/19 11/30/19 11/30/19 05:51 11:54 18:17 WBC RBC Hgb Hct MCHC RDW MCH Lymph % (Auto) Island % (Auto) Island # Eos # Lymph # (Auto) Island # (Auto) Eos # (Auto) Seg Neutrophils % Seg Neuts % (Manual) Baso # (Auto) Lymphocytes % (Manual) Monocytes % (Manual) Eosinophils % (Manual) Basophils % (Manual) Seg Neutrophils # Seg Neutrophils # Man Lymphocytes # (Manual) Monocytes # (Manual) Eosinophils # (Manual) Nucleated RBC % Basophils # (Manual) APTT Heparin Anti-Xa Level ABG pH POC ABG pO2 ABG pO2 ABG HCO3 ABG O2 Saturation ABG Base Excess POC ABG pCO2 ABG Hemoglobin ABG Oxyhemoglobin Oxyhemoglobin Sodium Potassium Chloride Carbon Dioxide BUN Creatinine Glucose POC Glucose 127 H 115 H 143 H Lactic Acid Calcium Phosphorus Magnesium AST ALT Lactate Dehydrogenase CK-MB (CK-2) C-Reactive Protein NT-Pro-B Natriuret Pep Total Protein Albumin Urine WBC (Auto) 12/01/19 12/01/19 12/01/19 01:18 05:22 12:16 WBC RBC Hgb Hct MCHC RDW MCH Lymph % (Auto) Island % (Auto) Island # Eos # Lymph # (Auto) [place] # (Auto) Eos # (Auto) Seg Neutrophils % Seg Neuts % (Manual) Baso # (Auto) Lymphocytes % (Manual) Monocytes % (Manual) Eosinophils % (Manual) Basophils % (Manual) Seg Neutrophils # Seg Neutrophils # Man Lymphocytes # (Manual) Monocytes # (Manual) Eosinophils # (Manual) Nucleated RBC % Basophils # (Manual) APTT Heparin Anti-Xa Level ABG pH POC ABG pO2 ABG pO2 ABG HCO3 ABG O2 Saturation ABG Base Excess POC ABG pCO2 ABG Hemoglobin ABG Oxyhemoglobin Oxyhemoglobin Sodium Potassium 3.5 L Chloride 107.8 H Carbon Dioxide BUN 37 H Creatinine Glucose 157 H POC Glucose 118 H 148 H Lactic Acid Calcium 8.2 L D Phosphorus Magnesium AST 48 H ALT 60 H Lactate Dehydrogenase 194 H CK-MB (CK-2) C-Reactive Protein 8.50 H NT-Pro-B Natriuret Pep Total Protein 5.5 L Albumin 2.8 L Urine WBC (Auto) 12/01/19 12/02/19 12/02/19 18:04 00:05 05:16 WBC 11.4 H RBC Hgb Hct MCHC RDW 15.9 H MCH Lymph % (Auto) Island % (Auto) 9.9 H [place] # 1.1 H Eos # Lymph # (Auto) [place] # (Auto) Eos # (Auto) Seg Neutrophils % 70.3 H Seg Neuts % (Manual) Baso # (Auto) Lymphocytes % (Manual) Monocytes % (Manual) Eosinophils % (Manual) Basophils % (Manual) Seg Neutrophils # 8.0 H Seg Neutrophils # Man Lymphocytes # (Manual) Monocytes # (Manual) Eosinophils # (Manual) Nucleated RBC % Basophils # (Manual) APTT Heparin Anti-Xa Level ABG pH POC ABG pO2 ABG pO2 ABG HCO3 ABG O2 Saturation ABG Base Excess POC ABG pCO2 ABG Hemoglobin ABG Oxyhemoglobin Oxyhemoglobin Sodium Potassium Chloride Carbon Dioxide BUN Creatinine Glucose POC Glucose 143 H 107 H Lactic Acid Calcium Phosphorus Magnesium AST ALT Lactate Dehydrogenase CK-MB (CK-2) C-Reactive Protein NT-Pro-B Natriuret Pep Total Protein Albumin Urine WBC (Auto) 12/02/19 12/02/19 12/02/19 05:16 06:03 11:52 WBC RBC Hgb Hct MCHC RDW MCH Lymph % (Auto) Island % (Auto) Island # Eos # Lymph # (Auto) [place] # (Auto) Eos # (Auto) Seg Neutrophils % Seg Neuts % (Manual) Baso # (Auto) Lymphocytes % (Manual) Monocytes % (Manual) Eosinophils % (Manual) Basophils % (Manual) Seg Neutrophils # Seg Neutrophils # Man Lymphocytes # (Manual) Monocytes # (Manual) Eosinophils # (Manual) Nucleated RBC % Basophils # (Manual) APTT Heparin Anti-Xa Level ABG pH POC ABG pO2 ABG pO2 ABG HCO3 ABG O2 Saturation ABG Base Excess POC ABG pCO2 ABG Hemoglobin ABG Oxyhemoglobin Oxyhemoglobin Sodium 146 H Potassium Chloride Carbon Dioxide BUN 28 H Creatinine Glucose 123 H POC Glucose 110 H 152 H Lactic Acid Calcium Phosphorus Magnesium AST ALT Lactate Dehydrogenase CK-MB (CK-2) C-Reactive Protein NT-Pro-B Natriuret Pep Total Protein Albumin Urine WBC (Auto) 12/02/19 12/02/19 12/02/19 12:58 17:58 23:36 WBC RBC Hgb Hct MCHC RDW MCH Lymph % (Auto) Island % (Auto) Island # Eos # Lymph # (Auto) [place] # (Auto) Eos # (Auto) Seg Neutrophils % Seg Neuts % (Manual) Baso # (Auto) Lymphocytes % (Manual) Monocytes % (Manual) Eosinophils % (Manual) Basophils % (Manual) Seg Neutrophils # Seg Neutrophils # Man Lymphocytes # (Manual) Monocytes # (Manual) Eosinophils # (Manual) Nucleated RBC % Basophils # (Manual) APTT Heparin Anti-Xa Level ABG pH POC ABG pO2 78.1 L ABG pO2 ABG HCO3 ABG O2 Saturation ABG Base Excess POC ABG pCO2 ABG Hemoglobin ABG Oxyhemoglobin Oxyhemoglobin Sodium Potassium Chloride Carbon Dioxide BUN Creatinine Glucose POC Glucose 120 H 123 H Lactic Acid Calcium Phosphorus Magnesium AST ALT Lactate Dehydrogenase CK-MB (CK-2) C-Reactive Protein NT-Pro-B Natriuret Pep Total Protein Albumin Urine WBC (Auto) 12/03/19 12/03/19 12/03/19 06:03 06:14 11:46 WBC RBC Hgb Hct MCHC RDW MCH Lymph % (Auto) Island % (Auto) Island # Eos # Lymph # (Auto) [place] # (Auto) Eos # (Auto) Seg Neutrophils % Seg Neuts % (Manual) Baso # (Auto) Lymphocytes % (Manual) Monocytes % (Manual) Eosinophils % (Manual) Basophils % (Manual) Seg Neutrophils # Seg Neutrophils # Man Lymphocytes # (Manual) Monocytes # (Manual) Eosinophils # (Manual) Nucleated RBC % Basophils # (Manual) APTT Heparin Anti-Xa Level ABG pH POC ABG pO2 ABG pO2 ABG HCO3 ABG O2 Saturation ABG Base Excess POC ABG pCO2 ABG Hemoglobin ABG Oxyhemoglobin Oxyhemoglobin Sodium Potassium Chloride Carbon Dioxide BUN Creatinine Glucose POC Glucose 142 H 130 H Lactic Acid Calcium Phosphorus Magnesium AST ALT Lactate Dehydrogenase CK-MB (CK-2) C-Reactive Protein NT-Pro-B Natriuret Pep Total Protein Albumin Urine WBC (Auto) 8.0 H 12/03/19 12/03/19 12/04/19 15:50 17:39 00:04 WBC RBC Hgb Hct MCHC RDW MCH Lymph % (Auto) Island % (Auto) Island # Eos # Lymph # (Auto) [place] # (Auto) Eos # (Auto) Seg Neutrophils % Seg Neuts % (Manual) Baso # (Auto) Lymphocytes % (Manual) Monocytes % (Manual) Eosinophils % (Manual) Basophils % (Manual) Seg Neutrophils # Seg Neutrophils # Man Lymphocytes # (Manual) Monocytes # (Manual) Eosinophils # (Manual) Nucleated RBC % Basophils # (Manual) APTT Heparin Anti-Xa Level ABG pH POC ABG pO2 ABG pO2 ABG HCO3 ABG O2 Saturation ABG Base Excess POC ABG pCO2 ABG Hemoglobin ABG Oxyhemoglobin Oxyhemoglobin Sodium Potassium Chloride Carbon Dioxide BUN Creatinine Glucose POC Glucose 146 H 133 H Lactic Acid Calcium Phosphorus 2.40 L Magnesium AST ALT Lactate Dehydrogenase CK-MB (CK-2) C-Reactive Protein NT-Pro-B Natriuret Pep Total Protein Albumin Urine WBC (Auto) 12/04/19 12/04/19 12/04/19 03:58 03:58 05:22 WBC 12.5 H RBC Hgb 11.2 L Hct 35.2 L MCHC RDW 16.0 H MCH Lymph % (Auto) Island % (Auto) 9.6 H Island # 1.2 H Eos # 0.5 H Lymph # (Auto) Island # (Auto) Eos # (Auto) Seg Neutrophils % Seg Neuts % (Manual) Baso # (Auto) Lymphocytes % (Manual) Monocytes % (Manual) Eosinophils % (Manual) Basophils % (Manual) Seg Neutrophils # 8.6 H Seg Neutrophils # Man Lymphocytes # (Manual) Monocytes # (Manual) Eosinophils # (Manual) Nucleated RBC % Basophils # (Manual) APTT Heparin Anti-Xa Level ABG pH POC ABG pO2 ABG pO2 ABG HCO3 ABG O2 Saturation ABG Base Excess POC ABG pCO2 ABG Hemoglobin ABG Oxyhemoglobin Oxyhemoglobin Sodium 146 H Potassium Chloride 108.6 H Carbon Dioxide BUN 30 H Creatinine 0.7 L Glucose 121 H POC Glucose 132 H Lactic Acid Calcium Phosphorus Magnesium AST ALT Lactate Dehydrogenase CK-MB (CK-2) C-Reactive Protein NT-Pro-B Natriuret Pep Total Protein Albumin Urine WBC (Auto) 12/04/19 12/04/19 12/05/19 13:26 18:43 00:19 WBC RBC Hgb Hct MCHC RDW MCH Lymph % (Auto) Island % (Auto) Island # Eos # Lymph # (Auto) Island # (Auto) Eos # (Auto) Seg Neutrophils % Seg Neuts % (Manual) Baso # (Auto) Lymphocytes % (Manual) Monocytes % (Manual) Eosinophils % (Manual) Basophils % (Manual) Seg Neutrophils # Seg Neutrophils # Man Lymphocytes # (Manual) Monocytes # (Manual) Eosinophils # (Manual) Nucleated RBC % Basophils # (Manual) APTT Heparin Anti-Xa Level ABG pH POC ABG pO2 ABG pO2 ABG HCO3 ABG O2 Saturation ABG Base Excess POC ABG pCO2 ABG Hemoglobin ABG Oxyhemoglobin Oxyhemoglobin Sodium Potassium Chloride Carbon Dioxide BUN Creatinine Glucose POC Glucose 185 H 156 H 150 H Lactic Acid Calcium Phosphorus Magnesium AST ALT Lactate Dehydrogenase CK-MB (CK-2) C-Reactive Protein NT-Pro-B Natriuret Pep Total Protein Albumin Urine WBC (Auto) 12/05/19 12/05/19 12/05/19 03:37 03:37 05:14 WBC 16.3 H RBC Hgb 11.4 L Hct MCHC RDW 15.6 H MCH Lymph % (Auto) 9.9 L Island % (Auto) 9.7 H Island # 1.6 H Eos # Lymph # (Auto) Island # (Auto) Eos # (Auto) Seg Neutrophils % 78.0 H Seg Neuts % (Manual) Baso # (Auto) Lymphocytes % (Manual) Monocytes % (Manual) Eosinophils % (Manual) Basophils % (Manual) Seg Neutrophils # 12.7 H Seg Neutrophils # Man Lymphocytes # (Manual) Monocytes # (Manual) Eosinophils # (Manual) Nucleated RBC % Basophils # (Manual) APTT Heparin Anti-Xa Level ABG pH POC ABG pO2 ABG pO2 ABG HCO3 ABG O2 Saturation ABG Base Excess POC ABG pCO2 ABG Hemoglobin ABG Oxyhemoglobin Oxyhemoglobin Sodium 146 H Potassium Chloride 107.2 H Carbon Dioxide BUN 27 H Creatinine 0.7 L Glucose 171 H POC Glucose 168 H Lactic Acid Calcium Phosphorus Magnesium AST ALT Lactate Dehydrogenase CK-MB (CK-2) C-Reactive Protein NT-Pro-B Natriuret Pep Total Protein Albumin Urine WBC (Auto) 12/05/19 12/05/19 12/05/19 12:31 18:10 23:58 WBC RBC Hgb Hct MCHC RDW MCH Lymph % (Auto) Island % (Auto) Island # Eos # Lymph # (Auto) Island # (Auto) Eos # (Auto) Seg Neutrophils % Seg Neuts % (Manual) Baso # (Auto) Lymphocytes % (Manual) Monocytes % (Manual) Eosinophils % (Manual) Basophils % (Manual) Seg Neutrophils # Seg Neutrophils # Man Lymphocytes # (Manual) Monocytes # (Manual) Eosinophils # (Manual) Nucleated RBC % Basophils # (Manual) APTT Heparin Anti-Xa Level ABG pH POC ABG pO2 ABG pO2 ABG HCO3 ABG O2 Saturation ABG Base Excess POC ABG pCO2 ABG Hemoglobin ABG Oxyhemoglobin Oxyhemoglobin Sodium Potassium Chloride Carbon Dioxide BUN Creatinine Glucose POC Glucose 159 H 198 H 115 H Lactic Acid Calcium Phosphorus Magnesium AST ALT Lactate Dehydrogenase CK-MB (CK-2) C-Reactive Protein NT-Pro-B Natriuret Pep Total Protein Albumin Urine WBC (Auto) 12/06/19 12/06/19 12/06/19 05:24 05:24 05:25 WBC 14.9 H RBC Hgb 10.8 L Hct 34.0 L MCHC RDW 15.6 H MCH Lymph % (Auto) 10.7 L Island % (Auto) 8.3 H Island # 1.2 H Eos # Lymph # (Auto) Island # (Auto) Eos # (Auto) Seg Neutrophils % 78.7 H Seg Neuts % (Manual) Baso # (Auto) Lymphocytes % (Manual) Monocytes % (Manual) Eosinophils % (Manual) Basophils % (Manual) Seg Neutrophils # 11.7 H Seg Neutrophils # Man Lymphocytes # (Manual) Monocytes # (Manual) Eosinophils # (Manual) Nucleated RBC % Basophils # (Manual) APTT Heparin Anti-Xa Level ABG pH POC ABG pO2 ABG pO2 ABG HCO3 ABG O2 Saturation ABG Base Excess POC ABG pCO2 ABG Hemoglobin ABG Oxyhemoglobin Oxyhemoglobin Sodium 148 H Potassium 5.1 H Chloride 107.6 H Carbon Dioxide BUN 27 H Creatinine 0.7 L Glucose 155 H POC Glucose 157 H Lactic Acid Calcium Phosphorus Magnesium AST ALT Lactate Dehydrogenase CK-MB (CK-2) C-Reactive Protein NT-Pro-B Natriuret Pep Total Protein Albumin Urine WBC (Auto) 12/07/19 12/07/19 12/07/19 00:13 05:34 11:33 WBC RBC Hgb Hct MCHC RDW MCH Lymph % (Auto) Island % (Auto) Island # Eos # Lymph # (Auto) Island # (Auto) Eos # (Auto) Seg Neutrophils % Seg Neuts % (Manual) Baso # (Auto) Lymphocytes % (Manual) Monocytes % (Manual) Eosinophils % (Manual) Basophils % (Manual) Seg Neutrophils # Seg Neutrophils # Man Lymphocytes # (Manual) Monocytes # (Manual) Eosinophils # (Manual) Nucleated RBC % Basophils # (Manual) APTT Heparin Anti-Xa Level ABG pH POC ABG pO2 ABG pO2 ABG HCO3 ABG O2 Saturation ABG Base Excess POC ABG pCO2 ABG Hemoglobin ABG Oxyhemoglobin Oxyhemoglobin Sodium Potassium Chloride Carbon Dioxide BUN Creatinine Glucose POC Glucose 142 H 111 H 169 H Lactic Acid Calcium Phosphorus Magnesium AST ALT Lactate Dehydrogenase CK-MB (CK-2) C-Reactive Protein NT-Pro-B Natriuret Pep Total Protein Albumin Urine WBC (Auto) 12/07/19 12/07/19 12/07/19 12:41 13:25 18:19 WBC 12.4 H RBC 3.53 L Hgb 10.2 L Hct 32.1 L MCHC RDW 15.3 H MCH Lymph % (Auto) 10.6 L Island % (Auto) 7.8 H Island # 1.0 H Eos # Lymph # (Auto) Island # (Auto) Eos # (Auto) Seg Neutrophils % 77.6 H Seg Neuts % (Manual) Baso # (Auto) Lymphocytes % (Manual) Monocytes % (Manual) Eosinophils % (Manual) Basophils % (Manual) Seg Neutrophils # 9.6 H Seg Neutrophils # Man Lymphocytes # (Manual) Monocytes # (Manual) Eosinophils # (Manual) Nucleated RBC % Basophils # (Manual) APTT Heparin Anti-Xa Level ABG pH POC ABG pO2 ABG pO2 ABG HCO3 ABG O2 Saturation ABG Base Excess POC ABG pCO2 ABG Hemoglobin ABG Oxyhemoglobin Oxyhemoglobin Sodium 149 H Potassium Chloride 108.4 H Carbon Dioxide BUN 26 H Creatinine 0.6 L Glucose 149 H POC Glucose 164 H Lactic Acid Calcium Phosphorus Magnesium 2.60 H AST 121 H ALT 145 H Lactate Dehydrogenase CK-MB (CK-2) C-Reactive Protein NT-Pro-B Natriuret Pep Total Protein Albumin 2.6 L Urine WBC (Auto) 12/07/19 12/08/19 12/08/19 22:25 00:02 03:55 WBC 13.3 H RBC 3.40 L Hgb 9.7 L Hct 30.8 L MCHC 31 L RDW 15.5 H MCH Lymph % (Auto) Island % (Auto) 8.1 H Island # 1.1 H Eos # Lymph # (Auto) Island # (Auto) Eos # (Auto) Seg Neutrophils % 73.0 H Seg Neuts % (Manual) Baso # (Auto) Lymphocytes % (Manual) Monocytes % (Manual) Eosinophils % (Manual) Basophils % (Manual) Seg Neutrophils # 9.7 H Seg Neutrophils # Man Lymphocytes # (Manual) Monocytes # (Manual) Eosinophils # (Manual) Nucleated RBC % Basophils # (Manual) APTT Heparin Anti-Xa Level 0.12 L ABG pH POC ABG pO2 ABG pO2 ABG HCO3 ABG O2 Saturation ABG Base Excess POC ABG pCO2 ABG Hemoglobin ABG Oxyhemoglobin Oxyhemoglobin Sodium Potassium Chloride Carbon Dioxide BUN Creatinine Glucose POC Glucose 151 H Lactic Acid Calcium Phosphorus Magnesium AST ALT Lactate Dehydrogenase CK-MB (CK-2) C-Reactive Protein NT-Pro-B Natriuret Pep Total Protein Albumin Urine WBC (Auto) 12/08/19 12/08/19 12/08/19 03:55 05:21 06:01 WBC RBC Hgb Hct MCHC RDW MCH Lymph % (Auto) Island % (Auto) Island # Eos # Lymph # (Auto) Island # (Auto) Eos # (Auto) Seg Neutrophils % Seg Neuts % (Manual) Baso # (Auto) Lymphocytes % (Manual) Monocytes % (Manual) Eosinophils % (Manual) Basophils % (Manual) Seg Neutrophils # Seg Neutrophils # Man Lymphocytes # (Manual) Monocytes # (Manual) Eosinophils # (Manual) Nucleated RBC % Basophils # (Manual) APTT Heparin Anti-Xa Level 0.20 L ABG pH POC ABG pO2 ABG pO2 ABG HCO3 ABG O2 Saturation ABG Base Excess POC ABG pCO2 ABG Hemoglobin ABG Oxyhemoglobin Oxyhemoglobin Sodium 149 H Potassium Chloride 108.0 H Carbon Dioxide BUN 28 H Creatinine 0.6 L Glucose 144 H POC Glucose 143 H Lactic Acid Calcium Phosphorus Magnesium AST 98 H ALT 145 H Lactate Dehydrogenase CK-MB (CK-2) C-Reactive Protein NT-Pro-B Natriuret Pep Total Protein 6.0 L Albumin 2.4 L Urine WBC (Auto) 12/08/19 12/08/19 12/08/19 12:08 18:11 23:53 WBC RBC Hgb Hct MCHC RDW MCH Lymph % (Auto) Island % (Auto) Island # Eos # Lymph # (Auto) Island # (Auto) Eos # (Auto) Seg Neutrophils % Seg Neuts % (Manual) Baso # (Auto) Lymphocytes % (Manual) Monocytes % (Manual) Eosinophils % (Manual) Basophils % (Manual) Seg Neutrophils # Seg Neutrophils # Man Lymphocytes # (Manual) Monocytes # (Manual) Eosinophils # (Manual) Nucleated RBC % Basophils # (Manual) APTT Heparin Anti-Xa Level ABG pH POC ABG pO2 ABG pO2 ABG HCO3 ABG O2 Saturation ABG Base Excess POC ABG pCO2 ABG Hemoglobin ABG Oxyhemoglobin Oxyhemoglobin Sodium Potassium Chloride Carbon Dioxide BUN Creatinine Glucose POC Glucose 172 H 122 H 162 H Lactic Acid Calcium Phosphorus Magnesium AST ALT Lactate Dehydrogenase CK-MB (CK-2) C-Reactive Protein NT-Pro-B Natriuret Pep Total Protein Albumin Urine WBC (Auto) 12/09/19 12/09/19 12/09/19 04:03 04:03 05:53 WBC RBC Hgb 9.1 L Hct 28.9 L MCHC RDW MCH Lymph % (Auto) Island % (Auto) Island # Eos # Lymph # (Auto) Island # (Auto) Eos # (Auto) Seg Neutrophils % Seg Neuts % (Manual) Baso # (Auto) Lymphocytes % (Manual) Monocytes % (Manual) Eosinophils % (Manual) Basophils % (Manual) Seg Neutrophils # Seg Neutrophils # Man Lymphocytes # (Manual) Monocytes # (Manual) Eosinophils # (Manual) Nucleated RBC % Basophils # (Manual) APTT Heparin Anti-Xa Level 0.15 L ABG pH POC ABG pO2 ABG pO2 ABG HCO3 ABG O2 Saturation ABG Base Excess POC ABG pCO2 ABG Hemoglobin ABG Oxyhemoglobin Oxyhemoglobin Sodium Potassium Chloride Carbon Dioxide BUN Creatinine Glucose POC Glucose 124 H Lactic Acid Calcium Phosphorus Magnesium AST ALT Lactate Dehydrogenase CK-MB (CK-2) C-Reactive Protein NT-Pro-B Natriuret Pep Total Protein Albumin Urine WBC (Auto) 12/09/19 12/09/19 12/10/19 09:43 12:41 00:13 WBC RBC Hgb Hct MCHC RDW MCH Lymph % (Auto) Island % (Auto) Island # Eos # Lymph # (Auto) Island # (Auto) Eos # (Auto) Seg Neutrophils % Seg Neuts % (Manual) Baso # (Auto) Lymphocytes % (Manual) Monocytes % (Manual) Eosinophils % (Manual) Basophils % (Manual) Seg Neutrophils # Seg Neutrophils # Man Lymphocytes # (Manual) Monocytes # (Manual) Eosinophils # (Manual) Nucleated RBC % Basophils # (Manual) APTT Heparin Anti-Xa Level ABG pH POC ABG pO2 ABG pO2 ABG HCO3 ABG O2 Saturation ABG Base Excess POC ABG pCO2 ABG Hemoglobin ABG Oxyhemoglobin Oxyhemoglobin Sodium Potassium Chloride Carbon Dioxide BUN 25 H Creatinine 0.6 L Glucose 131 H POC Glucose 109 H 120 H Lactic Acid Calcium Phosphorus Magnesium AST ALT Lactate Dehydrogenase CK-MB (CK-2) C-Reactive Protein NT-Pro-B Natriuret Pep Total Protein Albumin Urine WBC (Auto) 12/10/19 12/10/19 12/10/19 04:14 04:14 12:00 WBC 13.3 H RBC 3.34 L Hgb 9.6 L Hct 30.4 L MCHC RDW 15.4 H MCH Lymph % (Auto) Island % (Auto) Island # Eos # Lymph # (Auto) Island # (Auto) Eos # (Auto) Seg Neutrophils % Seg Neuts % (Manual) 75.0 H Baso # (Auto) Lymphocytes % (Manual) 13.0 L Monocytes % (Manual) 8.0 H Eosinophils % (Manual) Basophils % (Manual) 2.0 H Seg Neutrophils # Seg Neutrophils # Man 10.0 H Lymphocytes # (Manual) Monocytes # (Manual) 1.1 H Eosinophils # (Manual) Nucleated RBC % Basophils # (Manual) 0.3 H APTT Heparin Anti-Xa Level ABG pH POC ABG pO2 ABG pO2 ABG HCO3 ABG O2 Saturation ABG Base Excess POC ABG pCO2 ABG Hemoglobin ABG Oxyhemoglobin Oxyhemoglobin Sodium 147 H Potassium Chloride 108.3 H Carbon Dioxide BUN 21 H Creatinine 0.6 L Glucose 104 H POC Glucose 133 H Lactic Acid Calcium Phosphorus Magnesium AST ALT Lactate Dehydrogenase CK-MB (CK-2) C-Reactive Protein NT-Pro-B Natriuret Pep Total Protein Albumin Urine WBC (Auto) 12/10/19 12/10/19 12/11/19 18:44 21:20 00:08 WBC 14.9 H RBC 3.36 L Hgb 9.6 L Hct 30.5 L MCHC RDW 15.4 H MCH Lymph % (Auto) Island % (Auto) Island # Eos # Lymph # (Auto) [place] # (Auto) Eos # (Auto) Seg Neutrophils % Seg Neuts % (Manual) Baso # (Auto) Lymphocytes % (Manual) Monocytes % (Manual) Eosinophils % (Manual) Basophils % (Manual) Seg Neutrophils # Seg Neutrophils # Man Lymphocytes # (Manual) Monocytes # (Manual) Eosinophils # (Manual) Nucleated RBC % Basophils # (Manual) APTT Heparin Anti-Xa Level ABG pH POC ABG pO2 ABG pO2 ABG HCO3 ABG O2 Saturation ABG Base Excess POC ABG pCO2 ABG Hemoglobin ABG Oxyhemoglobin Oxyhemoglobin Sodium Potassium Chloride Carbon Dioxide BUN Creatinine Glucose POC Glucose 119 H 134 H Lactic Acid Calcium Phosphorus Magnesium AST ALT Lactate Dehydrogenase CK-MB (CK-2) C-Reactive Protein NT-Pro-B Natriuret Pep Total Protein Albumin Urine WBC (Auto) 12/11/19 12/11/19 12/11/19 03:54 07:28 08:36 WBC 11.9 H RBC 3.25 L Hgb 9.6 L Hct 29.2 L MCHC RDW 15.7 H MCH Lymph % (Auto) Island % (Auto) Island # Eos # Lymph # (Auto) Island # (Auto) Eos # (Auto) Seg Neutrophils % Seg Neuts % (Manual) Baso # (Auto) Lymphocytes % (Manual) Monocytes % (Manual) Eosinophils % (Manual) Basophils % (Manual) Seg Neutrophils # Seg Neutrophils # Man Lymphocytes # (Manual) Monocytes # (Manual) Eosinophils # (Manual) Nucleated RBC % Basophils # (Manual) APTT Heparin Anti-Xa Level 0.10 L 0.16 L ABG pH POC ABG pO2 ABG pO2 ABG HCO3 ABG O2 Saturation ABG Base Excess POC ABG pCO2 ABG Hemoglobin ABG Oxyhemoglobin Oxyhemoglobin Sodium Potassium Chloride Carbon Dioxide BUN Creatinine Glucose POC Glucose Lactic Acid Calcium Phosphorus Magnesium AST ALT Lactate Dehydrogenase CK-MB (CK-2) C-Reactive Protein NT-Pro-B Natriuret Pep Total Protein Albumin Urine WBC (Auto) 12/11/19 12/11/19 12/11/19 08:36 11:45 17:15 WBC RBC Hgb Hct MCHC RDW MCH Lymph % (Auto) Island % (Auto) Island # Eos # Lymph # (Auto) Island # (Auto) Eos # (Auto) Seg Neutrophils % Seg Neuts % (Manual) Baso # (Auto) Lymphocytes % (Manual) Monocytes % (Manual) Eosinophils % (Manual) Basophils % (Manual) Seg Neutrophils # Seg Neutrophils # Man Lymphocytes # (Manual) Monocytes # (Manual) Eosinophils # (Manual) Nucleated RBC % Basophils # (Manual) APTT Heparin Anti-Xa Level ABG pH POC ABG pO2 ABG pO2 ABG HCO3 ABG O2 Saturation ABG Base Excess POC ABG pCO2 ABG Hemoglobin ABG Oxyhemoglobin Oxyhemoglobin Sodium Potassium Chloride Carbon Dioxide BUN Creatinine 0.5 L Glucose 128 H POC Glucose 136 H 109 H Lactic Acid Calcium Phosphorus Magnesium AST ALT Lactate Dehydrogenase CK-MB (CK-2) C-Reactive Protein NT-Pro-B Natriuret Pep Total Protein Albumin Urine WBC (Auto) 12/12/19 12/12/19 12/12/19 00:03 05:53 05:53 WBC RBC Hgb 8.8 L Hct 27.6 L MCHC RDW MCH Lymph % (Auto) Island % (Auto) Island # Eos # Lymph # (Auto) Island # (Auto) Eos # (Auto) Seg Neutrophils % Seg Neuts % (Manual) Baso # (Auto) Lymphocytes % (Manual) Monocytes % (Manual) Eosinophils % (Manual) Basophils % (Manual) Seg Neutrophils # Seg Neutrophils # Man Lymphocytes # (Manual) Monocytes # (Manual) Eosinophils # (Manual) Nucleated RBC % Basophils # (Manual) APTT Heparin Anti-Xa Level 0.22 L ABG pH POC ABG pO2 ABG pO2 ABG HCO3 ABG O2 Saturation ABG Base Excess POC ABG pCO2 ABG Hemoglobin ABG Oxyhemoglobin Oxyhemoglobin Sodium Potassium Chloride Carbon Dioxide BUN Creatinine Glucose POC Glucose 116 H Lactic Acid Calcium Phosphorus Magnesium AST ALT Lactate Dehydrogenase CK-MB (CK-2) C-Reactive Protein NT-Pro-B Natriuret Pep Total Protein Albumin Urine WBC (Auto) 12/12/19 12/12/19 12/12/19 09:38 12:18 17:44 WBC RBC Hgb Hct MCHC RDW MCH Lymph % (Auto) Island % (Auto) Island # Eos # Lymph # (Auto) [place] # (Auto) Eos # (Auto) Seg Neutrophils % Seg Neuts % (Manual) Baso # (Auto) Lymphocytes % (Manual) Monocytes % (Manual) Eosinophils % (Manual) Basophils % (Manual) Seg Neutrophils # Seg Neutrophils # Man Lymphocytes # (Manual) Monocytes # (Manual) Eosinophils # (Manual) Nucleated RBC % Basophils # (Manual) APTT Heparin Anti-Xa Level ABG pH POC ABG pO2 ABG pO2 ABG HCO3 ABG O2 Saturation ABG Base Excess POC ABG pCO2 ABG Hemoglobin ABG Oxyhemoglobin Oxyhemoglobin Sodium Potassium Chloride Carbon Dioxide BUN Creatinine Glucose POC Glucose 115 H 146 H 146 H Lactic Acid Calcium Phosphorus Magnesium AST ALT Lactate Dehydrogenase CK-MB (CK-2) C-Reactive Protein NT-Pro-B Natriuret Pep Total Protein Albumin Urine WBC (Auto) 12/12/19 12/13/19 12/13/19 23:33 05:32 05:32 WBC 13.1 H RBC 3.27 L Hgb 9.5 L Hct 29.3 L MCHC RDW 15.6 H MCH Lymph % (Auto) Island % (Auto) Island # Eos # Lymph # (Auto) [place] # (Auto) Eos # (Auto) Seg Neutrophils % Seg Neuts % (Manual) 74.0 H Baso # (Auto) Lymphocytes % (Manual) 8.0 L Monocytes % (Manual) 9.0 H Eosinophils % (Manual) 5.0 H Basophils % (Manual) Seg Neutrophils # Seg Neutrophils # Man 9.7 H Lymphocytes # (Manual) 1.0 L Monocytes # (Manual) 1.2 H Eosinophils # (Manual) 0.7 H Nucleated RBC % Basophils # (Manual) APTT Heparin Anti-Xa Level 0.20 L ABG pH POC ABG pO2 ABG pO2 ABG HCO3 ABG O2 Saturation ABG Base Excess POC ABG pCO2 ABG Hemoglobin ABG Oxyhemoglobin Oxyhemoglobin Sodium Potassium Chloride Carbon Dioxide BUN Creatinine Glucose POC Glucose 126 H Lactic Acid Calcium Phosphorus Magnesium AST ALT Lactate Dehydrogenase CK-MB (CK-2) C-Reactive Protein NT-Pro-B Natriuret Pep Total Protein Albumin Urine WBC (Auto) 12/13/19 12/13/19 12/13/19 05:32 05:46 11:57 WBC RBC Hgb Hct MCHC RDW MCH Lymph % (Auto) Island % (Auto) Island # Eos # Lymph # (Auto) Island # (Auto) Eos # (Auto) Seg Neutrophils % Seg Neuts % (Manual) Baso # (Auto) Lymphocytes % (Manual) Monocytes % (Manual) Eosinophils % (Manual) Basophils % (Manual) Seg Neutrophils # Seg Neutrophils # Man Lymphocytes # (Manual) Monocytes # (Manual) Eosinophils # (Manual) Nucleated RBC % Basophils # (Manual) APTT Heparin Anti-Xa Level ABG pH POC ABG pO2 ABG pO2 ABG HCO3 ABG O2 Saturation ABG Base Excess POC ABG pCO2 ABG Hemoglobin ABG Oxyhemoglobin Oxyhemoglobin Sodium Potassium Chloride Carbon Dioxide 31 H BUN Creatinine 0.6 L Glucose 114 H POC Glucose 118 H 133 H Lactic Acid Calcium Phosphorus Magnesium AST ALT Lactate Dehydrogenase CK-MB (CK-2) C-Reactive Protein NT-Pro-B Natriuret Pep Total Protein Albumin Urine WBC (Auto) 12/13/19 12/13/19 12/14/19 17:44 23:46 05:32 WBC RBC Hgb Hct MCHC RDW MCH Lymph % (Auto) Island % (Auto) Island # Eos # Lymph # (Auto) Island # (Auto) Eos # (Auto) Seg Neutrophils % Seg Neuts % (Manual) Baso # (Auto) Lymphocytes % (Manual) Monocytes % (Manual) Eosinophils % (Manual) Basophils % (Manual) Seg Neutrophils # Seg Neutrophils # Man Lymphocytes # (Manual) Monocytes # (Manual) Eosinophils # (Manual) Nucleated RBC % Basophils # (Manual) APTT Heparin Anti-Xa Level ABG pH POC ABG pO2 ABG pO2 ABG HCO3 ABG O2 Saturation ABG Base Excess POC ABG pCO2 ABG Hemoglobin ABG Oxyhemoglobin Oxyhemoglobin Sodium Potassium Chloride Carbon Dioxide BUN Creatinine Glucose POC Glucose 161 H 126 H 139 H Lactic Acid Calcium Phosphorus Magnesium AST ALT Lactate Dehydrogenase CK-MB (CK-2) C-Reactive Protein NT-Pro-B Natriuret Pep Total Protein Albumin Urine WBC (Auto) 12/14/19 12/14/19 12/14/19 06:03 06:03 09:37 WBC RBC Hgb 9.6 L Hct 30.4 L MCHC RDW MCH Lymph % (Auto) Island % (Auto) Island # Eos # Lymph # (Auto) Island # (Auto) Eos # (Auto) Seg Neutrophils % Seg Neuts % (Manual) Baso # (Auto) Lymphocytes % (Manual) Monocytes % (Manual) Eosinophils % (Manual) Basophils % (Manual) Seg Neutrophils # Seg Neutrophils # Man Lymphocytes # (Manual) Monocytes # (Manual) Eosinophils # (Manual) Nucleated RBC % Basophils # (Manual) APTT Heparin Anti-Xa Level 0.24 L ABG pH POC ABG pO2 ABG pO2 ABG HCO3 ABG O2 Saturation ABG Base Excess POC ABG pCO2 ABG Hemoglobin ABG Oxyhemoglobin Oxyhemoglobin Sodium Potassium Chloride Carbon Dioxide BUN Creatinine 0.6 L Glucose 162 H POC Glucose Lactic Acid Calcium Phosphorus Magnesium AST 71 H ALT 118 H Lactate Dehydrogenase CK-MB (CK-2) C-Reactive Protein NT-Pro-B Natriuret Pep Total Protein 6.2 L Albumin 2.3 L Urine WBC (Auto) 12/14/19 12/14/19 12/15/19 12:06 18:18 00:19 WBC RBC Hgb Hct MCHC RDW MCH Lymph % (Auto) Island % (Auto) Island # Eos # Lymph # (Auto) [place] # (Auto) Eos # (Auto) Seg Neutrophils % Seg Neuts % (Manual) Baso # (Auto) Lymphocytes % (Manual) Monocytes % (Manual) Eosinophils % (Manual) Basophils % (Manual) Seg Neutrophils # Seg Neutrophils # Man Lymphocytes # (Manual) Monocytes # (Manual) Eosinophils # (Manual) Nucleated RBC % Basophils # (Manual) APTT Heparin Anti-Xa Level ABG pH POC ABG pO2 ABG pO2 ABG HCO3 ABG O2 Saturation ABG Base Excess POC ABG pCO2 ABG Hemoglobin ABG Oxyhemoglobin Oxyhemoglobin Sodium Potassium Chloride Carbon Dioxide BUN Creatinine Glucose POC Glucose 147 H 166 H 123 H Lactic Acid Calcium Phosphorus Magnesium AST ALT Lactate Dehydrogenase CK-MB (CK-2) C-Reactive Protein NT-Pro-B Natriuret Pep Total Protein Albumin Urine WBC (Auto) 12/15/19 12/15/19 12/15/19 05:28 05:29 05:29 WBC 14.9 H RBC 3.19 L Hgb 9.1 L Hct 28.7 L MCHC RDW 16.0 H MCH Lymph % (Auto) Island % (Auto) Island # Eos # Lymph # (Auto) [place] # (Auto) Eos # (Auto) Seg Neutrophils % Seg Neuts % (Manual) Baso # (Auto) Lymphocytes % (Manual) Monocytes % (Manual) Eosinophils % (Manual) Basophils % (Manual) Seg Neutrophils # Seg Neutrophils # Man Lymphocytes # (Manual) Monocytes # (Manual) Eosinophils # (Manual) Nucleated RBC % Basophils # (Manual) APTT Heparin Anti-Xa Level 0.19 L ABG pH POC ABG pO2 ABG pO2 ABG HCO3 ABG O2 Saturation ABG Base Excess POC ABG pCO2 ABG Hemoglobin ABG Oxyhemoglobin Oxyhemoglobin Sodium Potassium Chloride Carbon Dioxide BUN Creatinine 0.6 L Glucose 110 H POC Glucose Lactic Acid Calcium Phosphorus Magnesium AST ALT Lactate Dehydrogenase CK-MB (CK-2) C-Reactive Protein NT-Pro-B Natriuret Pep Total Protein Albumin Urine WBC (Auto) 12/15/19 12/15/19 12/15/19 05:53 11:50 17:26 WBC RBC Hgb Hct MCHC RDW MCH Lymph % (Auto) Island % (Auto) Island # Eos # Lymph # (Auto) [place] # (Auto) Eos # (Auto) Seg Neutrophils % Seg Neuts % (Manual) Baso # (Auto) Lymphocytes % (Manual) Monocytes % (Manual) Eosinophils % (Manual) Basophils % (Manual) Seg Neutrophils # Seg Neutrophils # Man Lymphocytes # (Manual) Monocytes # (Manual) Eosinophils # (Manual) Nucleated RBC % Basophils # (Manual) APTT Heparin Anti-Xa Level ABG pH POC ABG pO2 ABG pO2 ABG HCO3 ABG O2 Saturation ABG Base Excess POC ABG pCO2 ABG Hemoglobin ABG Oxyhemoglobin Oxyhemoglobin Sodium Potassium Chloride Carbon Dioxide BUN Creatinine Glucose POC Glucose 119 H 132 H 128 H Lactic Acid Calcium Phosphorus Magnesium AST ALT Lactate Dehydrogenase CK-MB (CK-2) C-Reactive Protein NT-Pro-B Natriuret Pep Total Protein Albumin Urine WBC (Auto) 12/15/19 12/16/19 12/16/19 23:11 05:30 05:46 WBC RBC Hgb 8.8 L Hct 27.9 L MCHC RDW MCH Lymph % (Auto) Island % (Auto) Island # Eos # Lymph # (Auto) Island # (Auto) Eos # (Auto) Seg Neutrophils % Seg Neuts % (Manual) Baso # (Auto) Lymphocytes % (Manual) Monocytes % (Manual) Eosinophils % (Manual) Basophils % (Manual) Seg Neutrophils # Seg Neutrophils # Man Lymphocytes # (Manual) Monocytes # (Manual) Eosinophils # (Manual) Nucleated RBC % Basophils # (Manual) APTT Heparin Anti-Xa Level ABG pH POC ABG pO2 ABG pO2 ABG HCO3 ABG O2 Saturation ABG Base Excess POC ABG pCO2 ABG Hemoglobin ABG Oxyhemoglobin Oxyhemoglobin Sodium Potassium Chloride Carbon Dioxide BUN Creatinine Glucose POC Glucose 150 H 134 H Lactic Acid Calcium Phosphorus Magnesium AST ALT Lactate Dehydrogenase CK-MB (CK-2) C-Reactive Protein NT-Pro-B Natriuret Pep Total Protein Albumin Urine WBC (Auto) 12/16/19 12/16/19 12/16/19 05:46 05:46 11:44 WBC RBC Hgb Hct MCHC RDW MCH Lymph % (Auto) Island % (Auto) Island # Eos # Lymph # (Auto) Island # (Auto) Eos # (Auto) Seg Neutrophils % Seg Neuts % (Manual) Baso # (Auto) Lymphocytes % (Manual) Monocytes % (Manual) Eosinophils % (Manual) Basophils % (Manual) Seg Neutrophils # Seg Neutrophils # Man Lymphocytes # (Manual) Monocytes # (Manual) Eosinophils # (Manual) Nucleated RBC % Basophils # (Manual) APTT Heparin Anti-Xa Level 0.20 L ABG pH POC ABG pO2 ABG pO2 ABG HCO3 ABG O2 Saturation ABG Base Excess POC ABG pCO2 ABG Hemoglobin ABG Oxyhemoglobin Oxyhemoglobin Sodium Potassium Chloride Carbon Dioxide 31 H BUN Creatinine 0.5 L Glucose 147 H POC Glucose 164 H Lactic Acid Calcium Phosphorus Magnesium AST ALT Lactate Dehydrogenase CK-MB (CK-2) C-Reactive Protein NT-Pro-B Natriuret Pep Total Protein Albumin Urine WBC (Auto) 12/16/19 12/16/19 12/17/19 17:17 23:49 05:30 WBC 13.9 H RBC 3.27 L Hgb 9.4 L Hct 29.2 L MCHC RDW 16.0 H MCH Lymph % (Auto) Island % (Auto) 8.8 H Island # Eos # Lymph # (Auto) Island # (Auto) 1.2 H Eos # (Auto) 0.5 H Seg Neutrophils % 70.5 H Seg Neuts % (Manual) Baso # (Auto) 0.2 H Lymphocytes % (Manual) Monocytes % (Manual) Eosinophils % (Manual) Basophils % (Manual) Seg Neutrophils # 9.8 H Seg Neutrophils # Man Lymphocytes # (Manual) Monocytes # (Manual) Eosinophils # (Manual) Nucleated RBC % Basophils # (Manual) APTT Heparin Anti-Xa Level ABG pH POC ABG pO2 ABG pO2 ABG HCO3 ABG O2 Saturation ABG Base Excess POC ABG pCO2 ABG Hemoglobin ABG Oxyhemoglobin Oxyhemoglobin Sodium Potassium Chloride Carbon Dioxide BUN Creatinine Glucose POC Glucose 162 H 144 H Lactic Acid Calcium Phosphorus Magnesium AST ALT Lactate Dehydrogenase CK-MB (CK-2) C-Reactive Protein NT-Pro-B Natriuret Pep Total Protein Albumin Urine WBC (Auto) 12/17/19 12/17/19 12/17/19 05:30 06:06 11:50 WBC RBC Hgb Hct MCHC RDW MCH Lymph % (Auto) Island % (Auto) Island # Eos # Lymph # (Auto) Island # (Auto) Eos # (Auto) Seg Neutrophils % Seg Neuts % (Manual) Baso # (Auto) Lymphocytes % (Manual) Monocytes % (Manual) Eosinophils % (Manual) Basophils % (Manual) Seg Neutrophils # Seg Neutrophils # Man Lymphocytes # (Manual) Monocytes # (Manual) Eosinophils # (Manual) Nucleated RBC % Basophils # (Manual) APTT Heparin Anti-Xa Level ABG pH POC ABG pO2 ABG pO2 ABG HCO3 ABG O2 Saturation ABG Base Excess POC ABG pCO2 ABG Hemoglobin ABG Oxyhemoglobin Oxyhemoglobin Sodium Potassium Chloride 97.4 L Carbon Dioxide 32 H BUN Creatinine 0.5 L Glucose 135 H POC Glucose 151 H 140 H Lactic Acid Calcium Phosphorus Magnesium AST ALT Lactate Dehydrogenase CK-MB (CK-2) C-Reactive Protein NT-Pro-B Natriuret Pep Total Protein Albumin Urine WBC (Auto) 12/17/19 12/17/19 12/18/19 17:50 23:46 05:17 WBC RBC Hgb 8.8 L Hct 28.0 L MCHC RDW MCH Lymph % (Auto) Island % (Auto) Island # Eos # Lymph # (Auto) [place] # (Auto) Eos # (Auto) Seg Neutrophils % Seg Neuts % (Manual) Baso # (Auto) Lymphocytes % (Manual) Monocytes % (Manual) Eosinophils % (Manual) Basophils % (Manual) Seg Neutrophils # Seg Neutrophils # Man Lymphocytes # (Manual) Monocytes # (Manual) Eosinophils # (Manual) Nucleated RBC % Basophils # (Manual) APTT Heparin Anti-Xa Level ABG pH POC ABG pO2 ABG pO2 ABG HCO3 ABG O2 Saturation ABG Base Excess POC ABG pCO2 ABG Hemoglobin ABG Oxyhemoglobin Oxyhemoglobin Sodium Potassium Chloride Carbon Dioxide BUN Creatinine Glucose POC Glucose 158 H 150 H Lactic Acid Calcium Phosphorus Magnesium AST ALT Lactate Dehydrogenase CK-MB (CK-2) C-Reactive Protein NT-Pro-B Natriuret Pep Total Protein Albumin Urine WBC (Auto) 12/18/19 12/18/19 12/18/19 05:17 05:49 11:12 WBC RBC Hgb Hct MCHC RDW MCH Lymph % (Auto) Island % (Auto) Island # Eos # Lymph # (Auto) [place] # (Auto) Eos # (Auto) Seg Neutrophils % Seg Neuts % (Manual) Baso # (Auto) Lymphocytes % (Manual) Monocytes % (Manual) Eosinophils % (Manual) Basophils % (Manual) Seg Neutrophils # Seg Neutrophils # Man Lymphocytes # (Manual) Monocytes # (Manual) Eosinophils # (Manual) Nucleated RBC % Basophils # (Manual) APTT Heparin Anti-Xa Level 0.16 L ABG pH POC ABG pO2 ABG pO2 ABG HCO3 ABG O2 Saturation ABG Base Excess POC ABG pCO2 ABG Hemoglobin ABG Oxyhemoglobin Oxyhemoglobin Sodium Potassium Chloride Carbon Dioxide BUN Creatinine Glucose POC Glucose 127 H 191 H Lactic Acid Calcium Phosphorus Magnesium AST ALT Lactate Dehydrogenase CK-MB (CK-2) C-Reactive Protein NT-Pro-B Natriuret Pep Total Protein Albumin Urine WBC (Auto) 12/18/19 12/18/19 12/19/19 17:03 20:16 00:08 WBC RBC Hgb Hct MCHC RDW MCH Lymph % (Auto) Island % (Auto) Island # Eos # Lymph # (Auto) [place] # (Auto) Eos # (Auto) Seg Neutrophils % Seg Neuts % (Manual) Baso # (Auto) Lymphocytes % (Manual) Monocytes % (Manual) Eosinophils % (Manual) Basophils % (Manual) Seg Neutrophils # Seg Neutrophils # Man Lymphocytes # (Manual) Monocytes # (Manual) Eosinophils # (Manual) Nucleated RBC % Basophils # (Manual) APTT Heparin Anti-Xa Level ABG pH POC ABG pO2 ABG pO2 ABG HCO3 ABG O2 Saturation ABG Base Excess POC ABG pCO2 ABG Hemoglobin ABG Oxyhemoglobin Oxyhemoglobin Sodium Potassium Chloride Carbon Dioxide BUN Creatinine Glucose POC Glucose 133 H 128 H 129 H Lactic Acid Calcium Phosphorus Magnesium AST ALT Lactate Dehydrogenase CK-MB (CK-2) C-Reactive Protein NT-Pro-B Natriuret Pep Total Protein Albumin Urine WBC (Auto) 12/19/19 12/19/19 12/19/19 04:45 04:45 05:35 WBC RBC Hgb Hct MCHC RDW MCH Lymph % (Auto) Island % (Auto) Island # Eos # Lymph # (Auto) [place] # (Auto) Eos # (Auto) Seg Neutrophils % Seg Neuts % (Manual) Baso # (Auto) Lymphocytes % (Manual) Monocytes % (Manual) Eosinophils % (Manual) Basophils % (Manual) Seg Neutrophils # Seg Neutrophils # Man Lymphocytes # (Manual) Monocytes # (Manual) Eosinophils # (Manual) Nucleated RBC % Basophils # (Manual) APTT Heparin Anti-Xa Level 0.17 L ABG pH POC ABG pO2 ABG pO2 ABG HCO3 ABG O2 Saturation ABG Base Excess POC ABG pCO2 ABG Hemoglobin ABG Oxyhemoglobin Oxyhemoglobin Sodium Potassium Chloride Carbon Dioxide BUN Creatinine Glucose POC Glucose 120 H Lactic Acid Calcium Phosphorus Magnesium AST ALT Lactate Dehydrogenase 228 H CK-MB (CK-2) C-Reactive Protein NT-Pro-B Natriuret Pep Total Protein Albumin Urine WBC (Auto) 12/19/19 12/19/19 12/19/19 09:20 11:32 11:32 WBC 14.6 H RBC 3.08 L Hgb 9.0 L Hct 26.8 L MCHC RDW 15.9 H MCH Lymph % (Auto) Island % (Auto) Island # Eos # Lymph # (Auto) [place] # (Auto) Eos # (Auto) Seg Neutrophils % Seg Neuts % (Manual) 82.0 H Baso # (Auto) Lymphocytes % (Manual) 10.0 L Monocytes % (Manual) Eosinophils % (Manual) Basophils % (Manual) Seg Neutrophils # Seg Neutrophils # Man 12.0 H Lymphocytes # (Manual) Monocytes # (Manual) 0.9 H Eosinophils # (Manual) Nucleated RBC % 1.0 H Basophils # (Manual) APTT Heparin Anti-Xa Level ABG pH 7.451 H POC ABG pO2 ABG pO2 62.6 L ABG HCO3 33.2 H ABG O2 Saturation 93.8 L ABG Base Excess 8.3 H POC ABG pCO2 ABG Hemoglobin 8.3 L ABG Oxyhemoglobin Oxyhemoglobin 91.9 L Sodium Potassium Chloride 95.0 L Carbon Dioxide 33 H BUN 22 H Creatinine 0.6 L Glucose 150 H POC Glucose Lactic Acid Calcium Phosphorus Magnesium AST ALT Lactate Dehydrogenase CK-MB (CK-2) C-Reactive Protein NT-Pro-B Natriuret Pep Total Protein 6.2 L Albumin 2.4 L Urine WBC (Auto) 12/19/19 12/19/19 12/20/19 11:56 18:17 00:09 WBC RBC Hgb Hct MCHC RDW MCH Lymph % (Auto) Island % (Auto) Island # Eos # Lymph # (Auto) [place] # (Auto) Eos # (Auto) Seg Neutrophils % Seg Neuts % (Manual) Baso # (Auto) Lymphocytes % (Manual) Monocytes % (Manual) Eosinophils % (Manual) Basophils % (Manual) Seg Neutrophils # Seg Neutrophils # Man Lymphocytes # (Manual) Monocytes # (Manual) Eosinophils # (Manual) Nucleated RBC % Basophils # (Manual) APTT Heparin Anti-Xa Level ABG pH POC ABG pO2 ABG pO2 ABG HCO3 ABG O2 Saturation ABG Base Excess POC ABG pCO2 ABG Hemoglobin ABG Oxyhemoglobin Oxyhemoglobin Sodium Potassium Chloride Carbon Dioxide BUN Creatinine Glucose POC Glucose 156 H 156 H 155 H Lactic Acid Calcium Phosphorus Magnesium AST ALT Lactate Dehydrogenase CK-MB (CK-2) C-Reactive Protein NT-Pro-B Natriuret Pep Total Protein Albumin Urine WBC (Auto) 12/20/19 12/20/19 12/20/19 05:26 06:02 18:17 WBC RBC Hgb Hct MCHC RDW MCH Lymph % (Auto) Island % (Auto) Island # Eos # Lymph # (Auto) [place] # (Auto) Eos # (Auto) Seg Neutrophils % Seg Neuts % (Manual) Baso # (Auto) Lymphocytes % (Manual) Monocytes % (Manual) Eosinophils % (Manual) Basophils % (Manual) Seg Neutrophils # Seg Neutrophils # Man Lymphocytes # (Manual) Monocytes # (Manual) Eosinophils # (Manual) Nucleated RBC % Basophils # (Manual) APTT Heparin Anti-Xa Level 0.19 L ABG pH POC ABG pO2 ABG pO2 ABG HCO3 ABG O2 Saturation ABG Base Excess POC ABG pCO2 ABG Hemoglobin ABG Oxyhemoglobin Oxyhemoglobin Sodium Potassium Chloride Carbon Dioxide BUN Creatinine Glucose POC Glucose 137 H 128 H Lactic Acid Calcium Phosphorus Magnesium AST ALT Lactate Dehydrogenase CK-MB (CK-2) C-Reactive Protein NT-Pro-B Natriuret Pep Total Protein Albumin Urine WBC (Auto) 12/20/19 12/21/19 12/21/19 23:34 05:31 05:31 WBC 12.7 H RBC 3.09 L Hgb 8.9 L Hct 27.4 L MCHC RDW 15.8 H MCH Lymph % (Auto) 12.1 L Island % (Auto) 7.8 H [place] # Eos # Lymph # (Auto) [place] # (Auto) 1.0 H Eos # (Auto) Seg Neutrophils % 77.1 H Seg Neuts % (Manual) Baso # (Auto) Lymphocytes % (Manual) Monocytes % (Manual) Eosinophils % (Manual) Basophils % (Manual) Seg Neutrophils # 9.8 H Seg Neutrophils # Man Lymphocytes # (Manual) Monocytes # (Manual) Eosinophils # (Manual) Nucleated RBC % Basophils # (Manual) APTT Heparin Anti-Xa Level ABG pH POC ABG pO2 ABG pO2 ABG HCO3 ABG O2 Saturation ABG Base Excess POC ABG pCO2 ABG Hemoglobin ABG Oxyhemoglobin Oxyhemoglobin Sodium Potassium Chloride 96.9 L Carbon Dioxide 37 H BUN 27 H Creatinine 0.7 L Glucose 140 H POC Glucose 145 H Lactic Acid Calcium Phosphorus Magnesium AST ALT Lactate Dehydrogenase CK-MB (CK-2) C-Reactive Protein NT-Pro-B Natriuret Pep Total Protein Albumin Urine WBC (Auto) 12/21/19 12/21/19 12/21/19 05:38 10:13 11:51 WBC RBC Hgb Hct MCHC RDW MCH Lymph % (Auto) Island % (Auto) Island # Eos # Lymph # (Auto) [place] # (Auto) Eos # (Auto) Seg Neutrophils % Seg Neuts % (Manual) Baso # (Auto) Lymphocytes % (Manual) Monocytes % (Manual) Eosinophils % (Manual) Basophils % (Manual) Seg Neutrophils # Seg Neutrophils # Man Lymphocytes # (Manual) Monocytes # (Manual) Eosinophils # (Manual) Nucleated RBC % Basophils # (Manual) APTT 23.9 L Heparin Anti-Xa Level < 0.10 L ABG pH POC ABG pO2 ABG pO2 ABG HCO3 ABG O2 Saturation ABG Base Excess POC ABG pCO2 ABG Hemoglobin ABG Oxyhemoglobin Oxyhemoglobin Sodium Potassium Chloride Carbon Dioxide BUN Creatinine Glucose POC Glucose 151 H 145 H Lactic Acid Calcium Phosphorus Magnesium AST ALT Lactate Dehydrogenase CK-MB (CK-2) C-Reactive Protein NT-Pro-B Natriuret Pep Total Protein Albumin Urine WBC (Auto) 12/21/19 12/22/19 12/22/19 17:16 00:01 01:33 WBC RBC Hgb Hct MCHC RDW MCH Lymph % (Auto) Island % (Auto) Island # Eos # Lymph # (Auto) [place] # (Auto) Eos # (Auto) Seg Neutrophils % Seg Neuts % (Manual) Baso # (Auto) Lymphocytes % (Manual) Monocytes % (Manual) Eosinophils % (Manual) Basophils % (Manual) Seg Neutrophils # Seg Neutrophils # Man Lymphocytes # (Manual) Monocytes # (Manual) Eosinophils # (Manual) Nucleated RBC % Basophils # (Manual) APTT Heparin Anti-Xa Level 0.10 L ABG pH POC ABG pO2 ABG pO2 ABG HCO3 ABG O2 Saturation ABG Base Excess POC ABG pCO2 ABG Hemoglobin ABG Oxyhemoglobin Oxyhemoglobin Sodium Potassium Chloride Carbon Dioxide BUN Creatinine Glucose POC Glucose 167 H 179 H Lactic Acid Calcium Phosphorus Magnesium AST ALT Lactate Dehydrogenase CK-MB (CK-2) C-Reactive Protein NT-Pro-B Natriuret Pep Total Protein Albumin Urine WBC (Auto) 12/22/19 12/22/19 12/22/19 03:22 05:10 05:10 WBC 13.8 H RBC 3.20 L Hgb 8.9 L Hct 28.1 L MCHC RDW 15.9 H MCH Lymph % (Auto) Island % (Auto) Island # Eos # Lymph # (Auto) [place] # (Auto) Eos # (Auto) Seg Neutrophils % Seg Neuts % (Manual) Baso # (Auto) Lymphocytes % (Manual) Monocytes % (Manual) Eosinophils % (Manual) Basophils % (Manual) Seg Neutrophils # Seg Neutrophils # Man Lymphocytes # (Manual) Monocytes # (Manual) Eosinophils # (Manual) Nucleated RBC % Basophils # (Manual) APTT Heparin Anti-Xa Level ABG pH POC ABG pO2 52.3 L ABG pO2 ABG HCO3 ABG O2 Saturation ABG Base Excess POC ABG pCO2 52.9 H ABG Hemoglobin 10.7 L ABG Oxyhemoglobin 84 L Oxyhemoglobin Sodium Potassium Chloride 96.6 L Carbon Dioxide BUN 25 H Creatinine 0.7 L Glucose 129 H POC Glucose Lactic Acid Calcium Phosphorus Magnesium AST ALT Lactate Dehydrogenase CK-MB (CK-2) C-Reactive Protein NT-Pro-B Natriuret Pep Total Protein Albumin Urine WBC (Auto) 12/22/19 12/22/19 12/22/19 05:18 12:32 12:43 WBC RBC Hgb Hct MCHC RDW MCH Lymph % (Auto) Island % (Auto) Island # Eos # Lymph # (Auto) [place] # (Auto) Eos # (Auto) Seg Neutrophils % Seg Neuts % (Manual) Baso # (Auto) Lymphocytes % (Manual) Monocytes % (Manual) Eosinophils % (Manual) Basophils % (Manual) Seg Neutrophils # Seg Neutrophils # Man Lymphocytes # (Manual) Monocytes # (Manual) Eosinophils # (Manual) Nucleated RBC % Basophils # (Manual) APTT Heparin Anti-Xa Level 0.18 L ABG pH POC ABG pO2 ABG pO2 ABG HCO3 ABG O2 Saturation ABG Base Excess POC ABG pCO2 ABG Hemoglobin ABG Oxyhemoglobin Oxyhemoglobin Sodium Potassium Chloride Carbon Dioxide BUN Creatinine Glucose POC Glucose 131 H 208 H Lactic Acid Calcium Phosphorus Magnesium AST ALT Lactate Dehydrogenase CK-MB (CK-2) C-Reactive Protein NT-Pro-B Natriuret Pep Total Protein Albumin Urine WBC (Auto) 12/22/19 12/22/19 12/23/19 17:44 23:20 03:51 WBC 15.2 H RBC 3.43 L Hgb 9.6 L Hct 30.3 L MCHC RDW 15.9 H MCH Lymph % (Auto) Island % (Auto) Island # Eos # Lymph # (Auto) [place] # (Auto) Eos # (Auto) Seg Neutrophils % Seg Neuts % (Manual) Baso # (Auto) Lymphocytes % (Manual) Monocytes % (Manual) Eosinophils % (Manual) Basophils % (Manual) Seg Neutrophils # Seg Neutrophils # Man Lymphocytes # (Manual) Monocytes # (Manual) Eosinophils # (Manual) Nucleated RBC % Basophils # (Manual) APTT Heparin Anti-Xa Level ABG pH POC ABG pO2 ABG pO2 ABG HCO3 ABG O2 Saturation ABG Base Excess POC ABG pCO2 ABG Hemoglobin ABG Oxyhemoglobin Oxyhemoglobin Sodium Potassium Chloride Carbon Dioxide BUN Creatinine Glucose POC Glucose 209 H 119 H Lactic Acid Calcium Phosphorus Magnesium AST ALT Lactate Dehydrogenase CK-MB (CK-2) C-Reactive Protein NT-Pro-B Natriuret Pep Total Protein Albumin Urine WBC (Auto) 12/23/19 12/23/19 12/23/19 03:51 05:31 12:09 WBC RBC Hgb Hct MCHC RDW MCH Lymph % (Auto) Island % (Auto) Island # Eos # Lymph # (Auto) [place] # (Auto) Eos # (Auto) Seg Neutrophils % Seg Neuts % (Manual) Baso # (Auto) Lymphocytes % (Manual) Monocytes % (Manual) Eosinophils % (Manual) Basophils % (Manual) Seg Neutrophils # Seg Neutrophils # Man Lymphocytes # (Manual) Monocytes # (Manual) Eosinophils # (Manual) Nucleated RBC % Basophils # (Manual) APTT Heparin Anti-Xa Level ABG pH POC ABG pO2 ABG pO2 ABG HCO3 ABG O2 Saturation ABG Base Excess POC ABG pCO2 ABG Hemoglobin ABG Oxyhemoglobin Oxyhemoglobin Sodium Potassium Chloride 97.2 L Carbon Dioxide 31 H BUN 23 H Creatinine 0.6 L Glucose 153 H POC Glucose 149 H 144 H Lactic Acid Calcium Phosphorus Magnesium AST ALT Lactate Dehydrogenase CK-MB (CK-2) C-Reactive Protein NT-Pro-B Natriuret Pep Total Protein Albumin Urine WBC (Auto) 12/23/19 12/23/19 12/23/19 15:30 17:49 23:31 WBC RBC Hgb Hct MCHC RDW MCH Lymph % (Auto) Island % (Auto) Island # Eos # Lymph # (Auto) [place] # (Auto) Eos # (Auto) Seg Neutrophils % Seg Neuts % (Manual) Baso # (Auto) Lymphocytes % (Manual) Monocytes % (Manual) Eosinophils % (Manual) Basophils % (Manual) Seg Neutrophils # Seg Neutrophils # Man Lymphocytes # (Manual) Monocytes # (Manual) Eosinophils # (Manual) Nucleated RBC % Basophils # (Manual) APTT Heparin Anti-Xa Level 0.21 L ABG pH POC ABG pO2 ABG pO2 ABG HCO3 ABG O2 Saturation ABG Base Excess POC ABG pCO2 ABG Hemoglobin ABG Oxyhemoglobin Oxyhemoglobin Sodium Potassium Chloride Carbon Dioxide BUN Creatinine Glucose POC Glucose 192 H 151 H Lactic Acid Calcium Phosphorus Magnesium AST ALT Lactate Dehydrogenase CK-MB (CK-2) C-Reactive Protein NT-Pro-B Natriuret Pep Total Protein Albumin Urine WBC (Auto) 12/24/19 12/24/19 12/24/19 05:34 12:13 16:50 WBC RBC Hgb Hct MCHC RDW MCH Lymph % (Auto) Island % (Auto) Island # Eos # Lymph # (Auto) [place] # (Auto) Eos # (Auto) Seg Neutrophils % Seg Neuts % (Manual) Baso # (Auto) Lymphocytes % (Manual) Monocytes % (Manual) Eosinophils % (Manual) Basophils % (Manual) Seg Neutrophils # Seg Neutrophils # Man Lymphocytes # (Manual) Monocytes # (Manual) Eosinophils # (Manual) Nucleated RBC % Basophils # (Manual) APTT Heparin Anti-Xa Level 0.16 L ABG pH POC ABG pO2 ABG pO2 ABG HCO3 ABG O2 Saturation ABG Base Excess POC ABG pCO2 ABG Hemoglobin ABG Oxyhemoglobin Oxyhemoglobin Sodium Potassium Chloride Carbon Dioxide BUN Creatinine Glucose POC Glucose 145 H 124 H Lactic Acid Calcium Phosphorus Magnesium AST ALT Lactate Dehydrogenase CK-MB (CK-2) C-Reactive Protein NT-Pro-B Natriuret Pep Total Protein Albumin Urine WBC (Auto) 12/24/19 12/25/19 12/25/19 17:53 00:14 04:18 WBC 12.9 H RBC 3.30 L Hgb 9.1 L Hct 28.8 L MCHC RDW 16.4 H MCH Lymph % (Auto) Island % (Auto) 7.8 H [place] # Eos # Lymph # (Auto) [place] # (Auto) 1.0 H Eos # (Auto) Seg Neutrophils % 75.5 H Seg Neuts % (Manual) Baso # (Auto) Lymphocytes % (Manual) Monocytes % (Manual) Eosinophils % (Manual) Basophils % (Manual) Seg Neutrophils # 9.7 H Seg Neutrophils # Man Lymphocytes # (Manual) Monocytes # (Manual) Eosinophils # (Manual) Nucleated RBC % Basophils # (Manual) APTT Heparin Anti-Xa Level ABG pH POC ABG pO2 ABG pO2 ABG HCO3 ABG O2 Saturation ABG Base Excess POC ABG pCO2 ABG Hemoglobin ABG Oxyhemoglobin Oxyhemoglobin Sodium Potassium Chloride Carbon Dioxide BUN Creatinine Glucose POC Glucose 164 H 148 H Lactic Acid Calcium Phosphorus Magnesium AST ALT Lactate Dehydrogenase CK-MB (CK-2) C-Reactive Protein NT-Pro-B Natriuret Pep Total Protein Albumin Urine WBC (Auto) 12/25/19 12/25/19 12/25/19 04:18 05:38 11:44 WBC RBC Hgb Hct MCHC RDW MCH Lymph % (Auto) Island % (Auto) Island # Eos # Lymph # (Auto) [place] # (Auto) Eos # (Auto) Seg Neutrophils % Seg Neuts % (Manual) Baso # (Auto) Lymphocytes % (Manual) Monocytes % (Manual) Eosinophils % (Manual) Basophils % (Manual) Seg Neutrophils # Seg Neutrophils # Man Lymphocytes # (Manual) Monocytes # (Manual) Eosinophils # (Manual) Nucleated RBC % Basophils # (Manual) APTT Heparin Anti-Xa Level ABG pH POC ABG pO2 ABG pO2 ABG HCO3 ABG O2 Saturation ABG Base Excess POC ABG pCO2 ABG Hemoglobin ABG Oxyhemoglobin Oxyhemoglobin Sodium Potassium Chloride Carbon Dioxide 33 H BUN 27 H Creatinine 0.6 L Glucose 132 H POC Glucose 152 H 166 H Lactic Acid Calcium Phosphorus Magnesium AST ALT Lactate Dehydrogenase CK-MB (CK-2) C-Reactive Protein NT-Pro-B Natriuret Pep Total Protein Albumin Urine WBC (Auto) 12/25/19 12/26/19 12/26/19 18:29 00:17 00:18 WBC RBC Hgb Hct MCHC RDW MCH Lymph % (Auto) Island % (Auto) Island # Eos # Lymph # (Auto) [place] # (Auto) Eos # (Auto) Seg Neutrophils % Seg Neuts % (Manual) Baso # (Auto) Lymphocytes % (Manual) Monocytes % (Manual) Eosinophils % (Manual) Basophils % (Manual) Seg Neutrophils # Seg Neutrophils # Man Lymphocytes # (Manual) Monocytes # (Manual) Eosinophils # (Manual) Nucleated RBC % Basophils # (Manual) APTT Heparin Anti-Xa Level ABG pH POC ABG pO2 ABG pO2 ABG HCO3 ABG O2 Saturation ABG Base Excess POC ABG pCO2 ABG Hemoglobin ABG Oxyhemoglobin Oxyhemoglobin Sodium Potassium Chloride 97.8 L Carbon Dioxide BUN 25 H Creatinine 0.6 L Glucose 140 H POC Glucose 194 H 151 H Lactic Acid Calcium Phosphorus Magnesium AST ALT Lactate Dehydrogenase CK-MB (CK-2) C-Reactive Protein NT-Pro-B Natriuret Pep Total Protein Albumin Urine WBC (Auto) 12/26/19 12/26/19 12/26/19 05:36 11:41 17:50 WBC RBC Hgb Hct MCHC RDW MCH Lymph % (Auto) Island % (Auto) Island # Eos # Lymph # (Auto) [place] # (Auto) Eos # (Auto) Seg Neutrophils % Seg Neuts % (Manual) Baso # (Auto) Lymphocytes % (Manual) Monocytes % (Manual) Eosinophils % (Manual) Basophils % (Manual) Seg Neutrophils # Seg Neutrophils # Man Lymphocytes # (Manual) Monocytes # (Manual) Eosinophils # (Manual) Nucleated RBC % Basophils # (Manual) APTT Heparin Anti-Xa Level ABG pH POC ABG pO2 ABG pO2 ABG HCO3 ABG O2 Saturation ABG Base Excess POC ABG pCO2 ABG Hemoglobin ABG Oxyhemoglobin Oxyhemoglobin Sodium Potassium Chloride Carbon Dioxide BUN Creatinine Glucose POC Glucose 156 H 148 H 139 H Lactic Acid Calcium Phosphorus Magnesium AST ALT Lactate Dehydrogenase CK-MB (CK-2) C-Reactive Protein NT-Pro-B Natriuret Pep Total Protein Albumin Urine WBC (Auto) 12/26/19 12/27/19 12/27/19 23:19 05:34 12:02 WBC RBC Hgb Hct MCHC RDW MCH Lymph % (Auto) Island % (Auto) Island # Eos # Lymph # (Auto) [place] # (Auto) Eos # (Auto) Seg Neutrophils % Seg Neuts % (Manual) Baso # (Auto) Lymphocytes % (Manual) Monocytes % (Manual) Eosinophils % (Manual) Basophils % (Manual) Seg Neutrophils # Seg Neutrophils # Man Lymphocytes # (Manual) Monocytes # (Manual) Eosinophils # (Manual) Nucleated RBC % Basophils # (Manual) APTT Heparin Anti-Xa Level ABG pH POC ABG pO2 ABG pO2 ABG HCO3 ABG O2 Saturation ABG Base Excess POC ABG pCO2 ABG Hemoglobin ABG Oxyhemoglobin Oxyhemoglobin Sodium Potassium Chloride Carbon Dioxide BUN Creatinine Glucose POC Glucose 161 H 145 H 157 H Lactic Acid Calcium Phosphorus Magnesium AST ALT Lactate Dehydrogenase CK-MB (CK-2) C-Reactive Protein NT-Pro-B Natriuret Pep Total Protein Albumin Urine WBC (Auto) 12/27/19 12/27/19 12/27/19 17:35 20:11 23:00 WBC RBC Hgb Hct MCHC RDW MCH Lymph % (Auto) Island % (Auto) Island # Eos # Lymph # (Auto) [place] # (Auto) Eos # (Auto) Seg Neutrophils % Seg Neuts % (Manual) Baso # (Auto) Lymphocytes % (Manual) Monocytes % (Manual) Eosinophils % (Manual) Basophils % (Manual) Seg Neutrophils # Seg Neutrophils # Man Lymphocytes # (Manual) Monocytes # (Manual) Eosinophils # (Manual) Nucleated RBC % Basophils # (Manual) APTT Heparin Anti-Xa Level 0.19 L ABG pH POC ABG pO2 ABG pO2 ABG HCO3 ABG O2 Saturation ABG Base Excess POC ABG pCO2 ABG Hemoglobin ABG Oxyhemoglobin Oxyhemoglobin Sodium Potassium Chloride Carbon Dioxide BUN Creatinine Glucose POC Glucose 158 H 155 H Lactic Acid Calcium Phosphorus Magnesium AST ALT Lactate Dehydrogenase CK-MB (CK-2) C-Reactive Protein NT-Pro-B Natriuret Pep Total Protein Albumin Urine WBC (Auto) 12/27/19 12/28/19 12/28/19 23:45 02:41 02:41 WBC 13.0 H RBC 3.48 L Hgb 9.5 L Hct 30.6 L MCHC 31 L RDW 16.6 H MCH 27 L Lymph % (Auto) 13.0 L [place] % (Auto) 8.0 H [place] # Eos # Lymph # (Auto) [place] # (Auto) 1.0 H Eos # (Auto) Seg Neutrophils % 76.3 H Seg Neuts % (Manual) Baso # (Auto) Lymphocytes % (Manual) Monocytes % (Manual) Eosinophils % (Manual) Basophils % (Manual) Seg Neutrophils # 9.9 H Seg Neutrophils # Man Lymphocytes # (Manual) Monocytes # (Manual) Eosinophils # (Manual) Nucleated RBC % Basophils # (Manual) APTT Heparin Anti-Xa Level ABG pH POC ABG pO2 ABG pO2 ABG HCO3 ABG O2 Saturation ABG Base Excess POC ABG pCO2 ABG Hemoglobin ABG Oxyhemoglobin Oxyhemoglobin Sodium Potassium Chloride Carbon Dioxide BUN 22 H Creatinine 0.6 L Glucose 101 H POC Glucose 130 H Lactic Acid Calcium Phosphorus Magnesium AST ALT Lactate Dehydrogenase CK-MB (CK-2) C-Reactive Protein NT-Pro-B Natriuret Pep Total Protein Albumin Urine WBC (Auto) 12/28/19 12/28/19 12/28/19 06:00 12:34 18:13 WBC RBC Hgb Hct MCHC RDW MCH Lymph % (Auto) Island % (Auto) Island # Eos # Lymph # (Auto) Island # (Auto) Eos # (Auto) Seg Neutrophils % Seg Neuts % (Manual) Baso # (Auto) Lymphocytes % (Manual) Monocytes % (Manual) Eosinophils % (Manual) Basophils % (Manual) Seg Neutrophils # Seg Neutrophils # Man Lymphocytes # (Manual) Monocytes # (Manual) Eosinophils # (Manual) Nucleated RBC % Basophils # (Manual) APTT Heparin Anti-Xa Level ABG pH POC ABG pO2 ABG pO2 ABG HCO3 ABG O2 Saturation ABG Base Excess POC ABG pCO2 ABG Hemoglobin ABG Oxyhemoglobin Oxyhemoglobin Sodium Potassium Chloride Carbon Dioxide BUN Creatinine Glucose POC Glucose 150 H 161 H 128 H Lactic Acid Calcium Phosphorus Magnesium AST ALT Lactate Dehydrogenase CK-MB (CK-2) C-Reactive Protein NT-Pro-B Natriuret Pep Total Protein Albumin Urine WBC (Auto) 12/28/19 12/29/19 12/29/19 23:36 05:21 11:40 WBC RBC Hgb Hct MCHC RDW MCH Lymph % (Auto) Island % (Auto) Island # Eos # Lymph # (Auto) Island # (Auto) Eos # (Auto) Seg Neutrophils % Seg Neuts % (Manual) Baso # (Auto) Lymphocytes % (Manual) Monocytes % (Manual) Eosinophils % (Manual) Basophils % (Manual) Seg Neutrophils # Seg Neutrophils # Man Lymphocytes # (Manual) Monocytes # (Manual) Eosinophils # (Manual) Nucleated RBC % Basophils # (Manual) APTT Heparin Anti-Xa Level ABG pH POC ABG pO2 ABG pO2 ABG HCO3 ABG O2 Saturation ABG Base Excess POC ABG pCO2 ABG Hemoglobin ABG Oxyhemoglobin Oxyhemoglobin Sodium Potassium Chloride Carbon Dioxide BUN Creatinine Glucose POC Glucose 137 H 136 H 166 H Lactic Acid Calcium Phosphorus Magnesium AST ALT Lactate Dehydrogenase CK-MB (CK-2) C-Reactive Protein NT-Pro-B Natriuret Pep Total Protein Albumin Urine WBC (Auto) 12/29/19 12/29/19 12/29/19 17:23 19:21 23:38 WBC RBC Hgb Hct MCHC RDW MCH Lymph % (Auto) Island % (Auto) Island # Eos # Lymph # (Auto) [place] # (Auto) Eos # (Auto) Seg Neutrophils % Seg Neuts % (Manual) Baso # (Auto) Lymphocytes % (Manual) Monocytes % (Manual) Eosinophils % (Manual) Basophils % (Manual) Seg Neutrophils # Seg Neutrophils # Man Lymphocytes # (Manual) Monocytes # (Manual) Eosinophils # (Manual) Nucleated RBC % Basophils # (Manual) APTT Heparin Anti-Xa Level 0.20 L ABG pH POC ABG pO2 ABG pO2 ABG HCO3 ABG O2 Saturation ABG Base Excess POC ABG pCO2 ABG Hemoglobin ABG Oxyhemoglobin Oxyhemoglobin Sodium Potassium Chloride Carbon Dioxide BUN Creatinine Glucose POC Glucose 144 H 141 H Lactic Acid Calcium Phosphorus Magnesium AST ALT Lactate Dehydrogenase CK-MB (CK-2) C-Reactive Protein NT-Pro-B Natriuret Pep Total Protein Albumin Urine WBC (Auto) 12/30/19 12/30/19 12/30/19 03:58 03:58 04:59 WBC RBC 3.54 L Hgb 9.8 L Hct 30.7 L MCHC RDW 16.8 H MCH Lymph % (Auto) Island % (Auto) Island # Eos # Lymph # (Auto) [place] # (Auto) Eos # (Auto) Seg Neutrophils % Seg Neuts % (Manual) Baso # (Auto) Lymphocytes % (Manual) Monocytes % (Manual) Eosinophils % (Manual) Basophils % (Manual) Seg Neutrophils # Seg Neutrophils # Man Lymphocytes # (Manual) Monocytes # (Manual) Eosinophils # (Manual) Nucleated RBC % Basophils # (Manual) APTT Heparin Anti-Xa Level ABG pH POC ABG pO2 ABG pO2 ABG HCO3 29.8 H ABG O2 Saturation ABG Base Excess 4.8 H POC ABG pCO2 ABG Hemoglobin 11.2 L ABG Oxyhemoglobin Oxyhemoglobin 93.8 L Sodium Potassium Chloride 97.8 L Carbon Dioxide BUN 26 H Creatinine Glucose 168 H POC Glucose Lactic Acid Calcium Phosphorus Magnesium AST ALT Lactate Dehydrogenase CK-MB (CK-2) C-Reactive Protein NT-Pro-B Natriuret Pep Total Protein Albumin Urine WBC (Auto) 12/30/19 12/30/19 12/30/19 05:45 11:34 17:28 WBC RBC Hgb Hct MCHC RDW MCH Lymph % (Auto) Island % (Auto) Island # Eos # Lymph # (Auto) [place] # (Auto) Eos # (Auto) Seg Neutrophils % Seg Neuts % (Manual) Baso # (Auto) Lymphocytes % (Manual) Monocytes % (Manual) Eosinophils % (Manual) Basophils % (Manual) Seg Neutrophils # Seg Neutrophils # Man Lymphocytes # (Manual) Monocytes # (Manual) Eosinophils # (Manual) Nucleated RBC % Basophils # (Manual) APTT Heparin Anti-Xa Level ABG pH POC ABG pO2 ABG pO2 ABG HCO3 ABG O2 Saturation ABG Base Excess POC ABG pCO2 ABG Hemoglobin ABG Oxyhemoglobin Oxyhemoglobin Sodium Potassium Chloride Carbon Dioxide BUN Creatinine Glucose POC Glucose 163 H 180 H 150 H Lactic Acid Calcium Phosphorus Magnesium AST ALT Lactate Dehydrogenase CK-MB (CK-2) C-Reactive Protein NT-Pro-B Natriuret Pep Total Protein Albumin Urine WBC (Auto) 12/30/19 12/31/19 12/31/19 23:43 04:55 05:07 WBC RBC Hgb Hct MCHC RDW MCH Lymph % (Auto) Island % (Auto) Island # Eos # Lymph # (Auto) [place] # (Auto) Eos # (Auto) Seg Neutrophils % Seg Neuts % (Manual) Baso # (Auto) Lymphocytes % (Manual) Monocytes % (Manual) Eosinophils % (Manual) Basophils % (Manual) Seg Neutrophils # Seg Neutrophils # Man Lymphocytes # (Manual) Monocytes # (Manual) Eosinophils # (Manual) Nucleated RBC % Basophils # (Manual) APTT Heparin Anti-Xa Level ABG pH POC ABG pO2 ABG pO2 ABG HCO3 ABG O2 Saturation ABG Base Excess POC ABG pCO2 ABG Hemoglobin ABG Oxyhemoglobin Oxyhemoglobin Sodium Potassium 5.6 H D Chloride Carbon Dioxide BUN 33 H Creatinine Glucose 131 H POC Glucose 142 H 134 H Lactic Acid Calcium Phosphorus Magnesium AST ALT Lactate Dehydrogenase CK-MB (CK-2) C-Reactive Protein NT-Pro-B Natriuret Pep Total Protein Albumin Urine WBC (Auto) 12/31/19 12/31/19 12/31/19 11:30 17:19 17:36 WBC RBC Hgb Hct MCHC RDW MCH Lymph % (Auto) Island % (Auto) Island # Eos # Lymph # (Auto) [place] # (Auto) Eos # (Auto) Seg Neutrophils % Seg Neuts % (Manual) Baso # (Auto) Lymphocytes % (Manual) Monocytes % (Manual) Eosinophils % (Manual) Basophils % (Manual) Seg Neutrophils # Seg Neutrophils # Man Lymphocytes # (Manual) Monocytes # (Manual) Eosinophils # (Manual) Nucleated RBC % Basophils # (Manual) APTT Heparin Anti-Xa Level ABG pH POC ABG pO2 ABG pO2 ABG HCO3 ABG O2 Saturation ABG Base Excess POC ABG pCO2 ABG Hemoglobin ABG Oxyhemoglobin Oxyhemoglobin Sodium Potassium Chloride Carbon Dioxide BUN 35 H Creatinine Glucose 156 H POC Glucose 158 H 181 H Lactic Acid Calcium Phosphorus Magnesium AST ALT Lactate Dehydrogenase CK-MB (CK-2) C-Reactive Protein NT-Pro-B Natriuret Pep Total Protein Albumin Urine WBC (Auto) 12/31/19 12/31/19 12/31/19 18:16 19:41 21:53 WBC RBC Hgb Hct MCHC RDW MCH Lymph % (Auto) Island % (Auto) Island # Eos # Lymph # (Auto) [place] # (Auto) Eos # (Auto) Seg Neutrophils % Seg Neuts % (Manual) Baso # (Auto) Lymphocytes % (Manual) Monocytes % (Manual) Eosinophils % (Manual) Basophils % (Manual) Seg Neutrophils # Seg Neutrophils # Man Lymphocytes # (Manual) Monocytes # (Manual) Eosinophils # (Manual) Nucleated RBC % Basophils # (Manual) APTT Heparin Anti-Xa Level 0.20 L ABG pH POC ABG pO2 ABG pO2 ABG HCO3 ABG O2 Saturation ABG Base Excess POC ABG pCO2 ABG Hemoglobin ABG Oxyhemoglobin Oxyhemoglobin Sodium Potassium Chloride Carbon Dioxide BUN 34 H Creatinine Glucose 169 H POC Glucose 141 H Lactic Acid Calcium Phosphorus Magnesium AST ALT Lactate Dehydrogenase CK-MB (CK-2) C-Reactive Protein NT-Pro-B Natriuret Pep Total Protein Albumin Urine WBC (Auto) 12/31/19 01/01/20 01/01/20 23:51 05:17 10:40 WBC RBC Hgb Hct MCHC RDW MCH Lymph % (Auto) Island % (Auto) Island # Eos # Lymph # (Auto) [place] # (Auto) Eos # (Auto) Seg Neutrophils % Seg Neuts % (Manual) Baso # (Auto) Lymphocytes % (Manual) Monocytes % (Manual) Eosinophils % (Manual) Basophils % (Manual) Seg Neutrophils # Seg Neutrophils # Man Lymphocytes # (Manual) Monocytes # (Manual) Eosinophils # (Manual) Nucleated RBC % Basophils # (Manual) APTT Heparin Anti-Xa Level ABG pH POC ABG pO2 ABG pO2 ABG HCO3 ABG O2 Saturation ABG Base Excess POC ABG pCO2 ABG Hemoglobin ABG Oxyhemoglobin Oxyhemoglobin Sodium Potassium Chloride Carbon Dioxide BUN 31 H Creatinine 0.7 L Glucose 137 H POC Glucose 131 H 155 H Lactic Acid Calcium Phosphorus Magnesium AST 73 H ALT 97 H Lactate Dehydrogenase CK-MB (CK-2) C-Reactive Protein NT-Pro-B Natriuret Pep 3866 H Total Protein Albumin 2.8 L Urine WBC (Auto) 01/01/20 01/01/20 01/01/20 12:26 15:33 17:53 WBC 14.3 H RBC 3.35 L Hgb 9.1 L Hct 28.8 L MCHC RDW 17.0 H MCH 27 L Lymph % (Auto) 7.0 L Island % (Auto) 7.6 H [place] # Eos # Lymph # (Auto) 1.0 L [place] # (Auto) 1.1 H Eos # (Auto) Seg Neutrophils % 83.3 H Seg Neuts % (Manual) Baso # (Auto) Lymphocytes % (Manual) Monocytes % (Manual) Eosinophils % (Manual) Basophils % (Manual) Seg Neutrophils # 12.0 H Seg Neutrophils # Man Lymphocytes # (Manual) Monocytes # (Manual) Eosinophils # (Manual) Nucleated RBC % Basophils # (Manual) APTT Heparin Anti-Xa Level ABG pH POC ABG pO2 ABG pO2 ABG HCO3 ABG O2 Saturation ABG Base Excess POC ABG pCO2 ABG Hemoglobin ABG Oxyhemoglobin Oxyhemoglobin Sodium Potassium Chloride Carbon Dioxide BUN Creatinine Glucose POC Glucose 128 H 128 H Lactic Acid Calcium Phosphorus Magnesium AST ALT Lactate Dehydrogenase CK-MB (CK-2) C-Reactive Protein NT-Pro-B Natriuret Pep Total Protein Albumin Urine WBC (Auto) 01/01/20 01/02/20 01/02/20 23:04 05:39 07:00 WBC RBC Hgb Hct MCHC RDW MCH Lymph % (Auto) Island % (Auto) Island # Eos # Lymph # (Auto) [place] # (Auto) Eos # (Auto) Seg Neutrophils % Seg Neuts % (Manual) Baso # (Auto) Lymphocytes % (Manual) Monocytes % (Manual) Eosinophils % (Manual) Basophils % (Manual) Seg Neutrophils # Seg Neutrophils # Man Lymphocytes # (Manual) Monocytes # (Manual) Eosinophils # (Manual) Nucleated RBC % Basophils # (Manual) APTT Heparin Anti-Xa Level 0.13 L ABG pH POC ABG pO2 ABG pO2 ABG HCO3 ABG O2 Saturation ABG Base Excess POC ABG pCO2 ABG Hemoglobin ABG Oxyhemoglobin Oxyhemoglobin Sodium Potassium Chloride Carbon Dioxide BUN Creatinine Glucose POC Glucose 120 H 169 H Lactic Acid Calcium Phosphorus Magnesium AST ALT Lactate Dehydrogenase CK-MB (CK-2) C-Reactive Protein NT-Pro-B Natriuret Pep Total Protein Albumin Urine WBC (Auto) 01/02/20 01/02/20 01/02/20 12:15 14:06 17:58 WBC RBC Hgb Hct MCHC RDW MCH Lymph % (Auto) Island % (Auto) [place] # Eos # Lymph # (Auto) [place] # (Auto) Eos # (Auto) Seg Neutrophils % Seg Neuts % (Manual) Baso # (Auto) Lymphocytes % (Manual) Monocytes % (Manual) Eosinophils % (Manual) Basophils % (Manual) Seg Neutrophils # Seg Neutrophils # Man Lymphocytes # (Manual) Monocytes # (Manual) Eosinophils # (Manual) Nucleated RBC % Basophils # (Manual) APTT Heparin Anti-Xa Level < 0.10 L ABG pH POC ABG pO2 ABG pO2 ABG HCO3 ABG O2 Saturation ABG Base Excess POC ABG pCO2 ABG Hemoglobin ABG Oxyhemoglobin Oxyhemoglobin Sodium Potassium Chloride Carbon Dioxide BUN Creatinine Glucose POC Glucose 190 H 198 H Lactic Acid Calcium Phosphorus Magnesium AST ALT Lactate Dehydrogenase CK-MB (CK-2) C-Reactive Protein NT-Pro-B Natriuret Pep Total Protein Albumin Urine WBC (Auto) 01/02/20 01/02/20 01/03/20 21:43 23:33 05:42 WBC RBC Hgb Hct MCHC RDW MCH Lymph % (Auto) Island % (Auto) Island # Eos # Lymph # (Auto) [place] # (Auto) Eos # (Auto) Seg Neutrophils % Seg Neuts % (Manual) Baso # (Auto) Lymphocytes % (Manual) Monocytes % (Manual) Eosinophils % (Manual) Basophils % (Manual) Seg Neutrophils # Seg Neutrophils # Man Lymphocytes # (Manual) Monocytes # (Manual) Eosinophils # (Manual) Nucleated RBC % Basophils # (Manual) APTT Heparin Anti-Xa Level 0.10 L ABG pH POC ABG pO2 ABG pO2 ABG HCO3 ABG O2 Saturation ABG Base Excess POC ABG pCO2 ABG Hemoglobin ABG Oxyhemoglobin Oxyhemoglobin Sodium Potassium Chloride Carbon Dioxide BUN Creatinine Glucose POC Glucose 180 H 163 H Lactic Acid Calcium Phosphorus Magnesium AST ALT Lactate Dehydrogenase CK-MB (CK-2) C-Reactive Protein NT-Pro-B Natriuret Pep Total Protein Albumin Urine WBC (Auto) 01/03/20 01/03/20 01/03/20 06:50 07:25 07:45 WBC 12.1 H RBC 3.35 L Hgb 9.0 L Hct 28.9 L MCHC 31 L RDW 16.6 H MCH 27 L Lymph % (Auto) 13.0 L [place] % (Auto) 8.6 H [place] # Eos # Lymph # (Auto) [place] # (Auto) 1.0 H Eos # (Auto) Seg Neutrophils % 75.9 H Seg Neuts % (Manual) Baso # (Auto) Lymphocytes % (Manual) Monocytes % (Manual) Eosinophils % (Manual) Basophils % (Manual) Seg Neutrophils # 9.2 H Seg Neutrophils # Man Lymphocytes # (Manual) Monocytes # (Manual) Eosinophils # (Manual) Nucleated RBC % Basophils # (Manual) APTT Heparin Anti-Xa Level 0.29 L ABG pH POC ABG pO2 ABG pO2 ABG HCO3 ABG O2 Saturation ABG Base Excess POC ABG pCO2 ABG Hemoglobin ABG Oxyhemoglobin Oxyhemoglobin Sodium Potassium 3.3 L D Chloride Carbon Dioxide 35 H D BUN 23 H Creatinine 0.6 L Glucose 149 H POC Glucose Lactic Acid Calcium Phosphorus Magnesium AST ALT 88 H Lactate Dehydrogenase CK-MB (CK-2) C-Reactive Protein NT-Pro-B Natriuret Pep Total Protein 6.2 L Albumin 2.9 L Urine WBC (Auto) 01/03/20 01/03/20 01/03/20 12:05 17:42 18:30 WBC RBC Hgb Hct MCHC RDW MCH Lymph % (Auto) Island % (Auto) Island # Eos # Lymph # (Auto) [place] # (Auto) Eos # (Auto) Seg Neutrophils % Seg Neuts % (Manual) Baso # (Auto) Lymphocytes % (Manual) Monocytes % (Manual) Eosinophils % (Manual) Basophils % (Manual) Seg Neutrophils # Seg Neutrophils # Man Lymphocytes # (Manual) Monocytes # (Manual) Eosinophils # (Manual) Nucleated RBC % Basophils # (Manual) APTT Heparin Anti-Xa Level ABG pH POC ABG pO2 ABG pO2 70.7 L ABG HCO3 36.1 H ABG O2 Saturation 94.4 L ABG Base Excess 10.0 H POC ABG pCO2 ABG Hemoglobin 9.7 L ABG Oxyhemoglobin Oxyhemoglobin 91.8 L Sodium Potassium Chloride Carbon Dioxide BUN Creatinine Glucose POC Glucose 128 H 132 H Lactic Acid Calcium Phosphorus Magnesium AST ALT Lactate Dehydrogenase CK-MB (CK-2) C-Reactive Protein NT-Pro-B Natriuret Pep Total Protein Albumin Urine WBC (Auto) 01/04/20 01/04/20 01/04/20 00:10 04:26 05:23 WBC RBC Hgb Hct MCHC RDW MCH Lymph % (Auto) Island % (Auto) Island # Eos # Lymph # (Auto) [place] # (Auto) Eos # (Auto) Seg Neutrophils % Seg Neuts % (Manual) Baso # (Auto) Lymphocytes % (Manual) Monocytes % (Manual) Eosinophils % (Manual) Basophils % (Manual) Seg Neutrophils # Seg Neutrophils # Man Lymphocytes # (Manual) Monocytes # (Manual) Eosinophils # (Manual) Nucleated RBC % Basophils # (Manual) APTT Heparin Anti-Xa Level 0.16 L ABG pH POC ABG pO2 ABG pO2 ABG HCO3 ABG O2 Saturation ABG Base Excess POC ABG pCO2 ABG Hemoglobin ABG Oxyhemoglobin Oxyhemoglobin Sodium Potassium Chloride Carbon Dioxide BUN Creatinine Glucose POC Glucose 121 H 119 H Lactic Acid Calcium Phosphorus Magnesium AST ALT Lactate Dehydrogenase CK-MB (CK-2) C-Reactive Protein NT-Pro-B Natriuret Pep Total Protein Albumin Urine WBC (Auto) 01/04/20 01/04/20 01/04/20 09:50 09:50 12:18 WBC 15.4 H RBC 3.30 L Hgb 8.7 L Hct 28.2 L MCHC 31 L RDW 17.0 H MCH 26 L Lymph % (Auto) Island % (Auto) 7.6 H [place] # Eos # Lymph # (Auto) [place] # (Auto) 1.2 H Eos # (Auto) Seg Neutrophils % 75.4 H Seg Neuts % (Manual) Baso # (Auto) Lymphocytes % (Manual) Monocytes % (Manual) Eosinophils % (Manual) Basophils % (Manual) Seg Neutrophils # 11.6 H Seg Neutrophils # Man Lymphocytes # (Manual) Monocytes # (Manual) Eosinophils # (Manual) Nucleated RBC % Basophils # (Manual) APTT Heparin Anti-Xa Level ABG pH POC ABG pO2 ABG pO2 ABG HCO3 ABG O2 Saturation ABG Base Excess POC ABG pCO2 ABG Hemoglobin ABG Oxyhemoglobin Oxyhemoglobin Sodium 148 H Potassium 3.5 L Chloride Carbon Dioxide 32 H BUN Creatinine 0.6 L Glucose 114 H POC Glucose 111 H Lactic Acid Calcium Phosphorus Magnesium AST ALT 59 H Lactate Dehydrogenase CK-MB (CK-2) C-Reactive Protein NT-Pro-B Natriuret Pep Total Protein Albumin 2.6 L Urine WBC (Auto) 01/05/20 01/05/20 01/05/20 04:05 04:05 05:19 WBC 11.7 H RBC 3.50 L Hgb 9.3 L Hct 29.9 L MCHC 31 L RDW 16.6 H MCH 27 L Lymph % (Auto) 13.1 L [place] % (Auto) 9.7 H [place] # Eos # Lymph # (Auto) [place] # (Auto) 1.1 H Eos # (Auto) Seg Neutrophils % 74.0 H Seg Neuts % (Manual) Baso # (Auto) Lymphocytes % (Manual) Monocytes % (Manual) Eosinophils % (Manual) Basophils % (Manual) Seg Neutrophils # 8.6 H Seg Neutrophils # Man Lymphocytes # (Manual) Monocytes # (Manual) Eosinophils # (Manual) Nucleated RBC % Basophils # (Manual) APTT Heparin Anti-Xa Level ABG pH POC ABG pO2 ABG pO2 ABG HCO3 ABG O2 Saturation ABG Base Excess POC ABG pCO2 ABG Hemoglobin ABG Oxyhemoglobin Oxyhemoglobin Sodium 151 H Potassium Chloride Carbon Dioxide 34 H BUN Creatinine 0.7 L Glucose POC Glucose 112 H Lactic Acid Calcium Phosphorus Magnesium AST ALT 59 H Lactate Dehydrogenase CK-MB (CK-2) C-Reactive Protein NT-Pro-B Natriuret Pep Total Protein 5.8 L Albumin 2.6 L Urine WBC (Auto) 01/05/20 01/06/20 01/06/20 16:04 00:23 04:44 WBC RBC 3.36 L Hgb 8.9 L Hct 28.7 L MCHC 31 L RDW 16.9 H MCH 26 L Lymph % (Auto) [place] % (Auto) 9.4 H [place] # Eos # Lymph # (Auto) [place] # (Auto) Eos # (Auto) Seg Neutrophils % Seg Neuts % (Manual) Baso # (Auto) Lymphocytes % (Manual) Monocytes % (Manual) Eosinophils % (Manual) Basophils % (Manual) Seg Neutrophils # Seg Neutrophils # Man Lymphocytes # (Manual) Monocytes # (Manual) Eosinophils # (Manual) Nucleated RBC % Basophils # (Manual) APTT Heparin Anti-Xa Level ABG pH POC ABG pO2 ABG pO2 ABG HCO3 ABG O2 Saturation ABG Base Excess POC ABG pCO2 ABG Hemoglobin ABG Oxyhemoglobin Oxyhemoglobin Sodium 151 H Potassium 3.2 L Chloride Carbon Dioxide 34 H BUN Creatinine 0.6 L Glucose POC Glucose 107 H Lactic Acid Calcium Phosphorus Magnesium AST ALT Lactate Dehydrogenase CK-MB (CK-2) C-Reactive Protein NT-Pro-B Natriuret Pep Total Protein Albumin Urine WBC (Auto) 01/06/20 01/06/20 01/06/20 04:44 05:33 12:04 WBC RBC Hgb Hct MCHC RDW MCH Lymph % (Auto) Island % (Auto) Island # Eos # Lymph # (Auto) [place] # (Auto) Eos # (Auto) Seg Neutrophils % Seg Neuts % (Manual) Baso # (Auto) Lymphocytes % (Manual) Monocytes % (Manual) Eosinophils % (Manual) Basophils % (Manual) Seg Neutrophils # Seg Neutrophils # Man Lymphocytes # (Manual) Monocytes # (Manual) Eosinophils # (Manual) Nucleated RBC % Basophils # (Manual) APTT Heparin Anti-Xa Level ABG pH POC ABG pO2 ABG pO2 ABG HCO3 ABG O2 Saturation ABG Base Excess POC ABG pCO2 ABG Hemoglobin ABG Oxyhemoglobin Oxyhemoglobin Sodium 151 H Potassium 3.4 L Chloride Carbon Dioxide 33 H BUN Creatinine 0.6 L Glucose 118 H POC Glucose 118 H 123 H Lactic Acid Calcium Phosphorus Magnesium AST ALT Lactate Dehydrogenase CK-MB (CK-2) C-Reactive Protein NT-Pro-B Natriuret Pep Total Protein 6.2 L Albumin 2.6 L Urine WBC (Auto) 01/06/20 01/07/20 01/07/20 17:54 00:06 04:10 WBC RBC 3.42 L Hgb 8.9 L Hct 29.0 L MCHC 31 L RDW 17.1 H MCH 26 L Lymph % (Auto) Island % (Auto) 8.4 H [place] # Eos # Lymph # (Auto) [place] # (Auto) Eos # (Auto) Seg Neutrophils % Seg Neuts % (Manual) Baso # (Auto) Lymphocytes % (Manual) Monocytes % (Manual) Eosinophils % (Manual) Basophils % (Manual) Seg Neutrophils # Seg Neutrophils # Man Lymphocytes # (Manual) Monocytes # (Manual) Eosinophils # (Manual) Nucleated RBC % Basophils # (Manual) APTT Heparin Anti-Xa Level ABG pH POC ABG pO2 ABG pO2 ABG HCO3 ABG O2 Saturation ABG Base Excess POC ABG pCO2 ABG Hemoglobin ABG Oxyhemoglobin Oxyhemoglobin Sodium Potassium Chloride Carbon Dioxide BUN Creatinine Glucose POC Glucose 112 H 126 H Lactic Acid Calcium Phosphorus Magnesium AST ALT Lactate Dehydrogenase CK-MB (CK-2) C-Reactive Protein NT-Pro-B Natriuret Pep Total Protein Albumin Urine WBC (Auto) 01/07/20 01/07/20 01/07/20 04:10 05:59 12:27 WBC RBC Hgb Hct MCHC RDW MCH Lymph % (Auto) Island % (Auto) Island # Eos # Lymph # (Auto) [place] # (Auto) Eos # (Auto) Seg Neutrophils % Seg Neuts % (Manual) Baso # (Auto) Lymphocytes % (Manual) Monocytes % (Manual) Eosinophils % (Manual) Basophils % (Manual) Seg Neutrophils # Seg Neutrophils # Man Lymphocytes # (Manual) Monocytes # (Manual) Eosinophils # (Manual) Nucleated RBC % Basophils # (Manual) APTT Heparin Anti-Xa Level ABG pH POC ABG pO2 ABG pO2 ABG HCO3 ABG O2 Saturation ABG Base Excess POC ABG pCO2 ABG Hemoglobin ABG Oxyhemoglobin Oxyhemoglobin Sodium 153 H Potassium 3.5 L Chloride Carbon Dioxide 34 H BUN Creatinine 0.6 L Glucose 121 H POC Glucose 121 H 126 H Lactic Acid Calcium Phosphorus Magnesium AST ALT Lactate Dehydrogenase CK-MB (CK-2) C-Reactive Protein NT-Pro-B Natriuret Pep Total Protein 5.9 L Albumin 2.4 L Urine WBC (Auto) 01/07/20 01/08/20 01/08/20 18:12 00:03 05:41 WBC RBC Hgb Hct MCHC RDW MCH Lymph % (Auto) Island % (Auto) Island # Eos # Lymph # (Auto) [place] # (Auto) Eos # (Auto) Seg Neutrophils % Seg Neuts % (Manual) Baso # (Auto) Lymphocytes % (Manual) Monocytes % (Manual) Eosinophils % (Manual) Basophils % (Manual) Seg Neutrophils # Seg Neutrophils # Man Lymphocytes # (Manual) Monocytes # (Manual) Eosinophils # (Manual) Nucleated RBC % Basophils # (Manual) APTT Heparin Anti-Xa Level ABG pH POC ABG pO2 ABG pO2 ABG HCO3 ABG O2 Saturation ABG Base Excess POC ABG pCO2 ABG Hemoglobin ABG Oxyhemoglobin Oxyhemoglobin Sodium Potassium Chloride Carbon Dioxide BUN Creatinine Glucose POC Glucose 124 H 130 H 138 H Lactic Acid Calcium Phosphorus Magnesium AST ALT Lactate Dehydrogenase CK-MB (CK-2) C-Reactive Protein NT-Pro-B Natriuret Pep Total Protein Albumin Urine WBC (Auto) 01/08/20 01/08/20 01/08/20 09:28 11:42 18:21 WBC RBC Hgb Hct MCHC RDW MCH Lymph % (Auto) Island % (Auto) Island # Eos # Lymph # (Auto) [place] # (Auto) Eos # (Auto) Seg Neutrophils % Seg Neuts % (Manual) Baso # (Auto) Lymphocytes % (Manual) Monocytes % (Manual) Eosinophils % (Manual) Basophils % (Manual) Seg Neutrophils # Seg Neutrophils # Man Lymphocytes # (Manual) Monocytes # (Manual) Eosinophils # (Manual) Nucleated RBC % Basophils # (Manual) APTT Heparin Anti-Xa Level ABG pH POC ABG pO2 ABG pO2 ABG HCO3 ABG O2 Saturation ABG Base Excess POC ABG pCO2 ABG Hemoglobin ABG Oxyhemoglobin Oxyhemoglobin Sodium Potassium Chloride Carbon Dioxide BUN Creatinine Glucose POC Glucose 181 H 150 H 129 H Lactic Acid Calcium Phosphorus Magnesium AST ALT Lactate Dehydrogenase CK-MB (CK-2) C-Reactive Protein NT-Pro-B Natriuret Pep Total Protein Albumin Urine WBC (Auto) 01/08/20 01/08/20 01/09/20 19:25 23:55 04:11 WBC RBC 3.43 L Hgb 8.9 L Hct 28.7 L MCHC 31 L RDW 17.6 H MCH 26 L Lymph % (Auto) Island % (Auto) 8.6 H [place] # Eos # Lymph # (Auto) [place] # (Auto) Eos # (Auto) Seg Neutrophils % Seg Neuts % (Manual) Baso # (Auto) Lymphocytes % (Manual) Monocytes % (Manual) Eosinophils % (Manual) Basophils % (Manual) Seg Neutrophils # Seg Neutrophils # Man Lymphocytes # (Manual) Monocytes # (Manual) Eosinophils # (Manual) Nucleated RBC % Basophils # (Manual) APTT Heparin Anti-Xa Level ABG pH POC ABG pO2 ABG pO2 ABG HCO3 ABG O2 Saturation ABG Base Excess POC ABG pCO2 ABG Hemoglobin ABG Oxyhemoglobin Oxyhemoglobin Sodium Potassium Chloride Carbon Dioxide BUN Creatinine 0.7 L Glucose 117 H POC Glucose 132 H Lactic Acid Calcium Phosphorus Magnesium AST ALT Lactate Dehydrogenase CK-MB (CK-2) C-Reactive Protein NT-Pro-B Natriuret Pep Total Protein Albumin Urine WBC (Auto) 01/09/20 01/09/20 01/09/20 04:11 05:38 22:58 WBC RBC Hgb Hct MCHC RDW MCH Lymph % (Auto) [place] % (Auto) Island # Eos # Lymph # (Auto) [place] # (Auto) Eos # (Auto) Seg Neutrophils % Seg Neuts % (Manual) Baso # (Auto) Lymphocytes % (Manual) Monocytes % (Manual) Eosinophils % (Manual) Basophils % (Manual) Seg Neutrophils # Seg Neutrophils # Man Lymphocytes # (Manual) Monocytes # (Manual) Eosinophils # (Manual) Nucleated RBC % Basophils # (Manual) APTT Heparin Anti-Xa Level ABG pH POC ABG pO2 ABG pO2 ABG HCO3 ABG O2 Saturation ABG Base Excess POC ABG pCO2 ABG Hemoglobin ABG Oxyhemoglobin Oxyhemoglobin Sodium 147 H Potassium 3.3 L D Chloride Carbon Dioxide 32 H BUN Creatinine 0.6 L Glucose 106 H POC Glucose 107 H 113 H Lactic Acid Calcium Phosphorus Magnesium AST ALT Lactate Dehydrogenase CK-MB (CK-2) C-Reactive Protein NT-Pro-B Natriuret Pep Total Protein Albumin Urine WBC (Auto) 01/10/20 01/10/20 01/10/20 04:05 11:36 17:54 WBC RBC Hgb Hct MCHC RDW MCH Lymph % (Auto) Island % (Auto) [place] # Eos # Lymph # (Auto) [place] # (Auto) Eos # (Auto) Seg Neutrophils % Seg Neuts % (Manual) Baso # (Auto) Lymphocytes % (Manual) Monocytes % (Manual) Eosinophils % (Manual) Basophils % (Manual) Seg Neutrophils # Seg Neutrophils # Man Lymphocytes # (Manual) Monocytes # (Manual) Eosinophils # (Manual) Nucleated RBC % Basophils # (Manual) APTT Heparin Anti-Xa Level ABG pH POC ABG pO2 ABG pO2 ABG HCO3 ABG O2 Saturation ABG Base Excess POC ABG pCO2 ABG Hemoglobin ABG Oxyhemoglobin Oxyhemoglobin Sodium Potassium Chloride Carbon Dioxide BUN Creatinine 0.7 L Glucose 110 H POC Glucose 129 H 117 H Lactic Acid Calcium Phosphorus Magnesium AST ALT Lactate Dehydrogenase CK-MB (CK-2) C-Reactive Protein NT-Pro-B Natriuret Pep Total Protein Albumin Urine WBC (Auto) 01/10/20 01/11/20 23:52 03:19 WBC RBC Hgb Hct MCHC RDW MCH Lymph % (Auto) Island % (Auto) Island # Eos # Lymph # (Auto) Island # (Auto) Eos # (Auto) Seg Neutrophils % Seg Neuts % (Manual) Baso # (Auto) Lymphocytes % (Manual) Monocytes % (Manual) Eosinophils % (Manual) Basophils % (Manual) Seg Neutrophils # Seg Neutrophils # Man Lymphocytes # (Manual) Monocytes # (Manual) Eosinophils # (Manual) Nucleated RBC % Basophils # (Manual) APTT Heparin Anti-Xa Level ABG pH POC ABG pO2 ABG pO2 ABG HCO3 ABG O2 Saturation ABG Base Excess POC ABG pCO2 ABG Hemoglobin ABG Oxyhemoglobin Oxyhemoglobin Sodium Potassium Chloride Carbon Dioxide BUN Creatinine Glucose POC Glucose 117 H 136 H Lactic Acid Calcium Phosphorus Magnesium AST ALT Lactate Dehydrogenase CK-MB (CK-2) C-Reactive Protein NT-Pro-B Natriuret Pep Total Protein Albumin Urine WBC (Auto) Allied health notes reviewed: nursing
[2020-01-11] MEDS: DOCUSATE SODIUM 100 MG/10 ML ORAL LIQD FEEDTUBE SCH ×2 (09:33→21:03)
[2020-01-11] MEDS: AMIODARONE 200 MG TAB PO SCH ×2 (09:33→21:05)
[2020-01-11] MEDS: FAMOTIDINE 20 MG/2 ML INJ IV SCH ×2 (09:33→21:04)
[2020-01-11] MEDS: QUEtiapine 200 MG TAB PO SCH ×2 (09:34→21:05)
[2020-01-11] MEDS ORDERED: MAGNESIUM CITRATE 300 ML ORAL LIQD PO SCH (10:00)
[2020-01-11] MEDS ORDERED: ENOXAPARIN 150 MG/1 ML INJ SUB-Q SCH (10:00)
--- NOTE | 2020-01-11 12:22 | Progress Note ---
Assessment and Plan Atrial fibrillation, paroxysmal on amiodarone and metoprolol currently in sinus rhythm Ischemic Cardiomyopathy re-echo this presentation reports an LVEF 40-45%. echo 08/2018: decreased LVEF 20-25%. Hx of CAD [facility] 12/2018: mild in-stent restenosis. No significant residual disease. Multifocal pneumonia negative COVID-19 test x 2 Chronic Respiratory failure s/p trach and mechanically ventilated History of COPD Acute PE/DVT Anemia Partial SBO vs ileus Recommendations: Continue amiodarone and metoprolol for paroxysmal atrial fibrillation. Otherwise, conservative cardiac management. Subjective Date of service: 01/11/20 Principal diagnosis: Ac hypoxemic resp failure; Pneumonia; PUI COVID-19; CHF; COPD; HTN Interval history: Stable sinus rhythm on telemetry. Objective Vital Signs Temp Pulse Pulse Resp Resp BP Pulse Ox 01/11/20 11:35 79 19 103/76 100 01/11/20 11:00 80 21 109/77 99 01/11/20 10:45 84 20 119/72 98 01/11/20 10:30 78 22 108/71 97 01/11/20 10:15 78 22 111/77 98 01/11/20 10:00 76 23 109/76 01/11/20 09:45 77 23 115/87 97 01/11/20 09:30 80 22 107/81 97 01/11/20 09:15 80 23 111/76 98 01/11/20 09:00 80 22 103/76 98 01/11/20 08:45 75 22 99/69 100 01/11/20 08:30 78 19 104/70 01/11/20 08:15 79 20 105/74 100 01/11/20 08:12 78 107/72 100 01/11/20 08:00 98.3 F 78 78 21 20 107/72 99 01/11/20 07:45 78 18 105/71 100 01/11/20 07:30 77 21 105/68 99 01/11/20 07:15 77 22 102/69 100 01/11/20 07:00 76 22 101/70 100 01/11/20 06:53 77 113/78 01/11/20 06:45 78 18 113/78 99 01/11/20 06:30 78 21 100/68 99 01/11/20 06:15 77 20 100/68 10/19/20 06:00 78 23 108/72 100 19/20 05:45 75 21 98/65 98 19/20 05:30 76 20 105/70 98 19/20 05:15 78 21 105/72 99 01/10/20 05:00 78 21 112/75 97 01/10/20 04:51 81 123/83 96 19/20 04:45 79 22 123/83 92 19/20 04:30 81 22 124/79 93 19/20 04:15 81 20 114/75 95 19/20 04:00 98.3 F 79 79 17 22 115/75 95 19/20 03:47 79 107/73 19/20 03:45 78 19 107/73 93 01/10/20 03:30 80 19 113/74 94 01/10/20 03:15 79 21 108/73 95 01/10/20 03:00 79 20 111/78 01/10/20 02:45 77 19 104/69 92 01/10/20 02:30 76 21 110/65 91 01/10/20 02:15 75 20 106/72 91 01/10/20 02:00 76 21 108/68 90 01/10/20 01:45 76 19 92/65 91 01/10/20 01:30 74 22 89/65 91 01/10/20 01:15 76 21 86/68 90 19/20 01:00 81 21 93/75 89 19/20 00:45 71 21 100/66 89 19/20 00:30 85 23 112/58 88 19/20 00:17 69 19/20 00:15 69 23 86/61 96 19/20 00:11 70 87/60 100 1019/20 00:07 72 87/60 1019/20 00:00 97.8 F 70 70 25 H 87/60 100 18/20 23:45 72 21 93/58 98 18/20 23:30 73 21 91/61 99 18/20 23:15 73 21 94/64 100 1018/20 23:00 73 20 93/61 100 1018/20 22:45 72 20 85/62 99 1018/20 22:30 73 20 95/66 100 10/18/20 22:19 71 21 90/64 100 10/18/20 22:15 73 21 90/64 98 10/18/20 22:00 77 22 112/80 99 10/18/20 21:45 76 21 107/75 100 10/18/20 21:30 75 21 102/75 99 10/18/20 21:15 78 23 109/75 99 10/18/20 21:00 77 23 109/78 98 10/18/20 20:59 77 109/78 99 10/18/20 20:45 76 21 105/75 98 10/18/20 20:30 75 23 100/73 98 10/18/20 20:15 77 23 104/73 98 10/18/20 20:00 97.8 F 79 79 23 107/77 99 10/18/20 19:55 78 111/82 10/18/20 19:45 79 22 111/82 100 10/18/20 19:30 80 22 116/86 100 10/18/20 19:15 77 21 112/79 100 10/18/20 19:00 77 27 H 104/76 100 10/18/20 18:00 73 21 106/76 100 10/18/20 17:45 73 26 H 104/75 100 10/18/20 17:30 73 26 H 107/77 100 10/18/20 17:24 82 111/80 10/18/20 17:21 74 23 111/81 98 10/18/20 17:02 75 20 111/80 99 10/18/20 17:00 77 21 111/80 100 10/18/20 16:41 74 111/80 10/18/20 16:30 75 19 111/80 99 10/18/20 16:00 98.6 F 80 21 118/80 98 10/18/20 15:57 82 10/18/20 15:55 82 25 H 99 10/18/20 15:30 82 23 122/81 99 10/18/20 15:00 82 12 111/78 97 10/18/20 14:30 78 21 100/70 100 10/18/20 14:00 75 19 105/69 100 10/18/20 13:38 78 103/70 10/18/20 13:30 77 22 100/69 100 10/18/20 13:00 78 22 103/70 10/18/20 12:40 77 21 100/69 100 01/10/20 12:30 78 21 103/73 99 Pulse Ox 01/11/20 11:35 01/11/20 11:00 01/11/20 10:45 01/11/20 10:30 01/11/20 10:15 01/11/20 10:00 01/11/20 09:45 01/11/20 09:30 01/11/20 09:15 01/11/20 09:00 01/11/20 08:45 01/11/20 08:30 01/11/20 08:15 01/11/20 08:12 01/11/20 08:00 01/11/20 07:45 01/11/20 07:30 01/11/20 07:15 01/11/20 07:00 01/11/20 06:53 01/11/20 06:45 01/11/20 06:30 01/11/20 06:15 01/11/20 06:00 01/11/20 05:45 01/11/20 05:30 01/11/20 05:15 01/11/20 05:00 01/11/20 04:51 96 01/11/20 04:45 01/11/20 04:30 01/11/20 04:15 01/11/20 04:00 01/11/20 03:47 01/11/20 03:45 01/11/20 03:30 01/11/20 03:15 01/11/20 03:00 01/11/20 02:45 01/11/20 02:30 01/11/20 02:15 01/11/20 02:00 01/11/20 01:45 01/11/20 01:30 01/11/20 01:15 01/11/20 01:00 01/11/20 00:45 01/11/20 00:30 01/11/20 00:17 01/11/20 00:15 01/11/20 00:11 01/11/20 00:07 01/11/20 00:00 01/10/20 23:45 01/10/20 23:30 01/10/20 23:15 01/10/20 23:00 01/10/20 22:45 01/10/20 22:30 01/10/20 22:19 01/10/20 22:15 01/10/20 22:00 01/10/20 21:45 01/10/20 21:30 01/10/20 21:15 01/10/20 21:00 01/10/20 20:59 01/10/20 20:45 01/10/20 20:30 01/10/20 20:15 01/10/20 20:00 01/10/20 19:55 01/10/20 19:45 01/10/20 19:30 01/10/20 19:15 01/10/20 19:00 01/10/20 18:00 01/10/20 17:45 01/10/20 17:30 01/10/20 17:24 01/10/20 17:21 01/10/20 17:02 99 01/10/20 17:00 01/10/20 16:41 01/10/20 16:30 01/10/20 16:00 01/10/20 15:57 01/10/20 15:55 01/10/20 15:30 01/10/20 15:00 01/10/20 14:30 01/10/20 14:00 01/10/20 13:38 01/10/20 13:30 01/10/20 13:00 01/10/20 12:40 01/10/20 12:30 - Physical Examination General: Other (vent to trach) Cardiac: Positive: Reg Rate and Rhythm - Allied health notes Allied health notes reviewed: nursing
[2020-01-11] MEDS: METOPROLOL TARTRATE 25 MG TAB PO SCH ×2 (13:02→18:49)
--- NOTE | 2020-01-11 16:10 | Progress Note ---
Assessment and Plan -Partial SBO, resolved -Acute LLL PE -Acute RLE DVT -Persistent fevers; secondary to sepsis and acute PE/DVT -Severe sepsis; secondary to bilateral pneumonia, persistent fevers -Acute hypoxemic respiratory failure, on vent unable to wean -Bilateral pneumonia, community acquired, -Aspiration Pneumonia -Sustained SVT, on amiodarone -Acute on chronic systolic congestive heart failure -History of cerebrovascular accident. -Tobacco use disorder -Alcohol abuse with DT -Acute chronic obstructive pulmonary disease exacerbation. -Hypertension and hypertensive urgency at presentation. -History of arthritis. -Paroxysmal atrial fibrillation -Leukocytosis with possible sepsis. -Lactic acidosis. -Bleeding from ET tube -Oropharyngeal dysphagia -S/P Knee surgery -History of peptic Ulcer Surgery -DVT prophylaxis COVID-19 test; 11/24/2019; negative 11/26/2019; negative Plan Continue ventilatory support - Now s/p trach and PEG Aspiration precautions Continue to adjust amiodarone and metoprolol for suppression of paroxysmal atrial fibrillation. Continue anticoagulation Started back on vancomycin and zosyn BC 03/28 - coag negative staph ?contaminant. Sputum cultures pending. Low-dose Lasix as needed DVT/GI prophy Heparin/Protonix Plan of care reviewed with the patient's nurse BS consulted for partial SBO Closely monitor the patient and adjust management as needed The high probability of a clinically significant, sudden or life threatening deterioration of the [Respiratory, cardiovascular & neurological] system(s) required my full and direct attention, intervention and personal management. The aggregate critical care time was [33] minutes without overlap. Time includes spent on [x] Data Review and interpretation [x] Patient assessment and monitoring of vital signs [x] Documentation [x] Medication orders and management Brief History Patient is a 64-year-old male with known history of hypertension, COPD, history of coronary artery disease, CHF with ejection fraction of 20 to 25% in August 2018 presenting to the emergency room via EMS complaining of shortness of breath. Patient was found to be hypoxic and in respiratory distress. Patient was placed on CPAP in route to the hospital. Oxygen saturation was said to be 88%. Started on Solu-Medrol, Lasix and magnesium in ED, patient was also found to be lethargic with an oxygen saturation of about 91% on CPAP. He was subsequently intubated. Work-up in the emergency room including chest x-ray reveals bilateral pneumonia. He had an elevated white count of 14 and also had an elevated BNP. Patient admitted to the ICU and placed on empiric IV antibiotics for pneumonia. He tested negative for COVID-19 and placed on isolation precautions. Remains intubated on ventilatory support, sputum cultures positive for Pseudomonas, ID treated with cefepime and Vanco. His hospital course became complicated with acute PE, DVT, paroxysmal atrial fib - placed on chronic anticoagulation. P atient was difficult to wean off, status post trach and PEG, remains on mechanical ventilation with trach tube. He then developed partial small bowel obstruction and not tolerating tube feeding. Placed on NG suction, general surgery following. Symptom improved with medical Mx, TF restarted. 11/25: Leukocytosis improving. Continue current management anticipate extubation possible today. 11/26. Still intubated. Failed SBT yesterday. Repeat COVID-19 test is negative. 11/27. CT head ordered for possible neuro status change is negative. More responsive as the day progressed as per RN. Chest xray today shows interval improvement. He is still on antibiotics - will complete regimen today. 11/28: Considering difficult extubation and severe cardiomyopathy, will obtain cardiology consult. Aspiration precautions, tube feeds held, continue antibiotics. 11/29: Still with intermittent fever but improving imaging, continue diuresis. 11/30; Extremely agitated when placed on PSV- SVT, hypertension. Patiet ac knowledged that he drinks. IV Ativan given, CIWA protocol initiated. 12 lead ordered showed SVT, one dose of amiodarone ordered. continue to follow up cardiology recommendation 12/01: Patient remains on mechanical ventilation, getting SBT trial. Remains in SVT, started on amiodarone drip by cardiology. 12/02; patient is on mechanical ventilation and on spontaneous breathing trial. Cardiology started the patient on PO amiodarone. Patient is on cefepime. 12/03: patient is on mechanical ventilation. Cardiology started the patient on PO amiodarone for SVT. Patient is on cefepime, no fever overnight. 12/04: Patient is sedated and on mechanical ventilation. Patient had fever yesterday afternoon 102.3, ID changed his cefepime to meropenem. Heart rate is controlled, cardiology is following. Patient has paroxysmal atrial fibrillation and on amiodarone and metoprolol, subcu heparin for anticoagulation and will need oral anticoagulation once stable. 12/05: Sputum cultures positive for Pseudomonas, ID following 12/06; patient is febrile T-max 24 hours 102 F ,ID change antibiotics to cefepime and Vancomycin 12/07: resumed care. Na 149 today, start on 1/2 NS. cont current care 12/08: remains in a stable sinus rhythm and stable blood pressure, continue supportive care. wean off vent as tolerated. persistent fever - ordered CTA chest 12/09: noted bloody discharges from ET tube last night. CTA and LE venous doppler positive for acute PE and DVT. resume heparin drip, consult vascular for poss ible EKOS/ IVC filter. monitor h/h. cont SBT trial, wean off vent as tolerated. called but no answer 12/10: cont heparin drip for acute PE and DVT, follow vascular recommendation. monitor h/h, wean off vent as tolerated 12/11: o/n had bleeding from ET tube, cont to monitor h/h. vascular recommending medical Mx. called ; Nicolle Araiza [phone]. 12/12: H&H remained stable, patient on heparin drip. Discussed with yesterday. Discussed with critical care attending. Patient not tolerating SBT trial. Continue to wean off from vent as tolerated, follow clinically. Tolerating tube feeding 12/13: Continue heparin drip, wean off from vent as tolerated. Discussed with pulmonary attending if no improvement by the end of 3 weeks of intubation patient may need trach and PEG. Continue to provide supportive care, follow CBC and BMP. 12/14: Stop cefepime today, wean off from vent as tolerated. cont Heparin infusion, while monitoring for bleeding 12/15: Patient is not tolerating SBT trial, becoming apnic on CPAP. May need to place on trach and PEG. Continue heparin drip, monitor off antibiotics 12/16. Still maintained on vent. May need PEG and trach as her has been failed SBTs 12/17. Had low UO overnight. Started on tamsulosin. May need PEG and trach - defer to pulm. 12/18-. Plan for US thoracentesis to help with weaning. Remains on heparin drip for VTE. 12/20. Discussed with spouse today. He will get thoracentesis today. INR/PTT ordered. Heparin drip held. 12/21: planned for trach and PEG, cont supportive care, thoracentesis cancelled 12/22: cont supportive care, wean off from vent, daily SBT 12/23: tolerating SBT, possible extubation soon. cont supportive care 12/24: wean off vent as tolerated, daily SBT, follow clinically 12/25; cont to monitor, wean off vent as tolerated 12/26: Continue to monitor wean off vent as tolerated patient is tolerating SBT trial but not ready to wean off. 12/27: need trach and PEG, will f/u with GS, cont supportive care 12/28: pending trach/PEG 12/29: plan for trach and PEG on Saturday 12/30: Plan for trach and PEG. Temp 101F. Blood cultures, urinalysis and chest xray ordered. 12/31. Had afib with RVR overnight. Metoprolol dose has been increased. He is still on amiodarone. Plan for PEG tube placement today. Repeat chest x-ray shows worsening infiltrates. Started on the Lasix. Monitor fever now. Blood cultures negative so far. Urinalysis pending 01/01. Started on antibiotics as he had another fever. On vancomycin and zosyn. ID consulted. HR still in the 100s. Had trach and PEG placement on 12/31 with no complications. BC 03/28 - Coag negative staph? contaminant. 01/02. On antibiotics. ID consulted. HR still high. Cardiology adjusting HR control medications. 01/03. HR better. Heparin switched to DOAC. HR better. Started on bumex 01/04: c/o abdominal pain, not tolerating TF, had projectile vomiting few times. Abd xry/CT abd suggestive of partial SBO, reconsult surgery, place NG with suction, start iv fluid. 01/05; Pt stable. NGT output 650cc over 24 hours, bilious. No f/c, WBC within normal limits. cont NG suction and cont to hold TF 01/06: Abs series - mild improvement in small bowel distension in mid abdomen, normal gas/stool pattern in colon. NGT in duodenum. Continue to hold tube feeding, maintain NG tube with low intermittent suction. Patient's was updated by phone. Continue to provide supportive care and monitor clinically. 01/07: +BMs today and NGT/PEG output appears more gastric today. Plan to clamp NGT, if tolerates start TF from tomorrow. cont supportive care. 01/08; Gastric output decreased over last 24 hours. NGT has been clamped x 24 hours. plan to dc NGT and to start TTF via PEG - vital HF @10cc/hr 01/09: clinically stable, tolerating TF. monitor BMP, wean off from vent as tolerated 01/10: clinically stable, on TF. wean off vent as tolerated Subjective Date of service: 01/11/20 Principal diagnosis: Ac hypoxemic resp failure; Pneumonia; PUI COVID-19; CHF; COPD; HTN Interval history: Patient seen and examined Patient intubated on trach Discussed with RN at the bedside H/H STABLE, Objective - Exam Narrative Exam: General appearance: Present: well-nourished, opens eyes to names and follows minor command - EENT Eyes: Present: PERRL, EOM intact. Absent: scleral icterus ENT: clear oral mucosa, dentition normal - Neck Neck: Present: supple, normal ROM, trach on place - Respiratory Respiratory effort: normal, mechanical ventilation with trach Respiratory: bilateral: rales - Cardiovascular Rhythm: regular Heart Sounds: Present: S1 & S2, tachycardic. Absent: gallop, systolic murmur, diastolic murmur, rub - Extremities Extremities: no ischemia, pulses intact, pulses symmetrical, No edema, Full ROM Peripheral Pulses: within normal limits - Abdominal General gastrointestinal: Present: soft, nondistended, + bowel sounds. - Integumentary Integumentary: Present: clear, warm, dry. Absent: rash - Musculoskeletal Musculoskeletal: no joint swelling - Psychiatric Psychiatric: no agitation Neurology: no focal deficits - Constitutional Vitals: Vital Signs - 12hr 01/11/20 01/11/20 01/11/20 04:15 04:30 04:45 Temperature Pulse Rate 81 81 79 Pulse Rate [ From Monitor] Respiratory 20 22 22 Rate Respiratory Rate [Abdomen] Blood Pressure 114/75 124/79 123/83 O2 Sat by Pulse 95 93 92 Oximetry O2 Sat by Pulse Oximetry [ Assessment] 01/11/20 01/11/20 01/11/20 04:51 05:00 05:15 Temperature Pulse Rate 81 78 78 Pulse Rate [ From Monitor] Respiratory 21 21 Rate Respiratory Rate [Abdomen] Blood Pressure 123/83 112/75 105/72 O2 Sat by Pulse 96 97 99 Oximetry O2 Sat by Pulse 96 Oximetry [ Assessment] 01/11/20 01/11/20 01/11/20 05:30 05:45 06:00 Temperature Pulse Rate 76 75 78 Pulse Rate [ From Monitor] Respiratory 20 21 23 Rate Respiratory Rate [Abdomen] Blood Pressure 105/70 98/65 108/72 O2 Sat by Pulse 98 98 100 Oximetry O2 Sat by Pulse Oximetry [ Assessment] 01/11/20 01/11/20 01/11/20 06:15 06:30 06:45 Temperature Pulse Rate 77 78 78 Pulse Rate [ From Monitor] Respiratory 20 21 18 Rate Respiratory Rate [Abdomen] Blood Pressure 100/68 100/68 113/78 O2 Sat by Pulse 99 99 Oximetry O2 Sat by Pulse Oximetry [ Assessment] 01/11/20 01/11/20 01/11/20 06:53 07:00 07:15 Temperature Pulse Rate 77 76 77 Pulse Rate [ From Monitor] Respiratory 22 22 Rate Respiratory Rate [Abdomen] Blood Pressure 113/78 101/70 102/69 O2 Sat by Pulse 100 100 Oximetry O2 Sat by Pulse Oximetry [ Assessment] 01/11/20 01/11/20 01/11/20 07:30 07:45 08:00 Temperature 98.3 F Pulse Rate 77 78 77 Pulse Rate [ 78 From Monitor] Respiratory 21 18 21 Rate Respiratory 20 Rate [Abdomen] Blood Pressure 105/68 105/71 107/72 O2 Sat by Pulse 99 100 99 Oximetry O2 Sat by Pulse Oximetry [ Assessment] 01/11/20 01/11/20 01/11/20 08:12 08:15 08:30 Temperature Pulse Rate 78 79 78 Pulse Rate [ From Monitor] Respiratory 20 19 Rate Respiratory Rate [Abdomen] Blood Pressure 107/72 105/74 104/70 O2 Sat by Pulse 100 100 Oximetry O2 Sat by Pulse Oximetry [ Assessment] 01/11/20 01/11/20 01/11/20 08:45 09:00 09:15 Temperature Pulse Rate 75 80 80 Pulse Rate [ From Monitor] Respiratory 22 22 23 Rate Respiratory Rate [Abdomen] Blood Pressure 99/69 103/76 111/76 O2 Sat by Pulse 100 98 98 Oximetry O2 Sat by Pulse Oximetry [ Assessment] 01/11/20 01/11/20 01/11/20 09:30 09:45 10:00 Temperature Pulse Rate 80 77 76 Pulse Rate [ From Monitor] Respiratory 22 23 23 Rate Respiratory Rate [Abdomen] Blood Pressure 107/81 115/87 109/76 O2 Sat by Pulse 97 97 Oximetry O2 Sat by Pulse Oximetry [ Assessment] 01/11/20 01/11/20 01/11/20 10:15 10:30 10:45 Temperature Pulse Rate 78 78 84 Pulse Rate [ From Monitor] Respiratory 22 22 20 Rate Respiratory Rate [Abdomen] Blood Pressure 111/77 108/71 119/72 O2 Sat by Pulse 98 97 98 Oximetry O2 Sat by Pulse Oximetry [ Assessment] 01/11/20 01/11/20 01/11/20 11:00 11:15 11:30 Temperature Pulse Rate 80 80 79 Pulse Rate [ From Monitor] Respiratory 21 20 19 Rate Respiratory Rate [Abdomen] Blood Pressure 109/77 108/78 103/76 O2 Sat by Pulse 99 100 99 Oximetry O2 Sat by Pulse Oximetry [ Assessment] 01/11/20 01/11/20 01/11/20 11:35 11:45 12:00 Temperature 98.7 F Pulse Rate 79 77 78 Pulse Rate [ 78 From Monitor] Respiratory 19 19 20 Rate Respiratory Rate [Abdomen] Blood Pressure 103/76 105/72 102/75 O2 Sat by Pulse 100 99 99 Oximetry O2 Sat by Pulse Oximetry [ Assessment] 01/11/20 01/11/20 01/11/20 12:15 12:30 12:45 Temperature Pulse Rate 90 93 H 91 H Pulse Rate [ From Monitor] Respiratory 21 21 21 Rate Respiratory Rate [Abdomen] Blood Pressure 103/76 138/96 129/93 O2 Sat by Pulse 100 99 98 Oximetry O2 Sat by Pulse Oximetry [ Assessment] 01/11/20 01/11/20 01/11/20 13:00 13:02 13:15 Temperature Pulse Rate 87 80 Pulse Rate [ From Monitor] Respiratory 20 Rate Respiratory Rate [Abdomen] Blood Pressure 132/91 132/91 124/80 O2 Sat by Pulse 99 99 Oximetry O2 Sat by Pulse Oximetry [ Assessment] 01/11/20 01/11/20 01/11/20 13:30 13:45 14:00 Temperature Pulse Rate 81 81 78 Pulse Rate [ From Monitor] Respiratory 19 19 18 Rate Respiratory Rate [Abdomen] Blood Pressure 117/83 118/80 113/83 O2 Sat by Pulse 98 98 98 Oximetry O2 Sat by Pulse Oximetry [ Assessment] 01/11/20 01/11/20 14:15 15:28 Temperature Pulse Rate 78 88 Pulse Rate [ From Monitor] Respiratory 18 22 Rate Respiratory Rate [Abdomen] Blood Pressure 112/79 116/90 O2 Sat by Pulse 99 100 Oximetry O2 Sat by Pulse Oximetry [ Assessment] - Labs CBC & Chem 7: 01/12/20 04:18 01/12/20 04:18 Labs: Abnormal lab results 01/10/20 01/10/20 01/11/20 Range/Units 17:54 23:52 03:19 POC Glucose 117 H 117 H 136 H (70-105) 01/11/20 Range/Units 12:09 POC Glucose 115 H (70-105) HEART Score - HEART Score Troponin: Troponin T < 0.010 ng/mL (0.00-0.029) 11/24/19 02:53
[2020-01-11] MEDS ORDERED: MAGNESIUM HYDROXIDE (MOM) ORAL LIQD UDC FEEDTUBE ONE (16:26)
--- NOTE | 2020-01-11 16:28 | Progress Note ---
Assessment and Plan 64 yo M with pSBO vs ileus Pt stable. Continues to figueroa TF. Plan: 1. will advance TF slowly to goal of 70cc/hr - orders written to adv by 10cc/hr every 4 hours until goal is reached 2. continue bowel reg. 1 dose MOM today 3. IVF - continue to bolus for low BP if needed 4. monitor lytes and replace as needed 5. Recommend OOB to chair if possible Thank you. Please call with questions. Subjective Date of service: 01/11/20 Narrative: Pt seen and examined. No complaints. Tolerating TF. Objective Vital Signs - 12hr 01/11/20 01/11/20 01/11/20 04:30 04:45 04:51 Temperature Pulse Rate 81 79 81 Pulse Rate [ From Monitor] Respiratory 22 22 Rate Respiratory Rate [Abdomen] Blood Pressure 124/79 123/83 123/83 O2 Sat by Pulse 93 92 96 Oximetry O2 Sat by Pulse 96 Oximetry [ Assessment] 01/11/20 01/11/20 01/11/20 05:00 05:15 05:30 Temperature Pulse Rate 78 78 76 Pulse Rate [ From Monitor] Respiratory 21 21 20 Rate Respiratory Rate [Abdomen] Blood Pressure 112/75 105/72 105/70 O2 Sat by Pulse 97 99 98 Oximetry O2 Sat by Pulse Oximetry [ Assessment] 01/11/20 01/11/20 01/11/20 05:45 06:00 06:15 Temperature Pulse Rate 75 78 77 Pulse Rate [ From Monitor] Respiratory 21 23 20 Rate Respiratory Rate [Abdomen] Blood Pressure 98/65 108/72 100/68 O2 Sat by Pulse 98 100 Oximetry O2 Sat by Pulse Oximetry [ Assessment] 01/11/20 01/11/20 01/11/20 06:30 06:45 06:53 Temperature Pulse Rate 78 78 77 Pulse Rate [ From Monitor] Respiratory 21 18 Rate Respiratory Rate [Abdomen] Blood Pressure 100/68 113/78 113/78 O2 Sat by Pulse 99 99 Oximetry O2 Sat by Pulse Oximetry [ Assessment] 01/11/20 01/11/20 01/11/20 07:00 07:15 07:30 Temperature Pulse Rate 76 77 77 Pulse Rate [ From Monitor] Respiratory 22 22 21 Rate Respiratory Rate [Abdomen] Blood Pressure 101/70 102/69 105/68 O2 Sat by Pulse 100 100 99 Oximetry O2 Sat by Pulse Oximetry [ Assessment] 01/11/20 01/11/20 01/11/20 07:45 08:00 08:12 Temperature 98.3 F Pulse Rate 78 77 78 Pulse Rate [ 78 From Monitor] Respiratory 18 21 Rate Respiratory 20 Rate [Abdomen] Blood Pressure 105/71 107/72 107/72 O2 Sat by Pulse 100 99 100 Oximetry O2 Sat by Pulse Oximetry [ Assessment] 01/11/20 01/11/20 01/11/20 08:15 08:30 08:45 Temperature Pulse Rate 79 78 75 Pulse Rate [ From Monitor] Respiratory 20 19 22 Rate Respiratory Rate [Abdomen] Blood Pressure 105/74 104/70 99/69 O2 Sat by Pulse 100 100 Oximetry O2 Sat by Pulse Oximetry [ Assessment] 01/11/20 01/11/20 01/11/20 09:00 09:15 09:30 Temperature Pulse Rate 80 80 80 Pulse Rate [ From Monitor] Respiratory 22 23 22 Rate Respiratory Rate [Abdomen] Blood Pressure 103/76 111/76 107/81 O2 Sat by Pulse 98 98 97 Oximetry O2 Sat by Pulse Oximetry [ Assessment] 01/11/20 01/11/20 01/11/20 09:45 10:00 10:15 Temperature Pulse Rate 77 76 78 Pulse Rate [ From Monitor] Respiratory 23 23 22 Rate Respiratory Rate [Abdomen] Blood Pressure 115/87 109/76 111/77 O2 Sat by Pulse 97 98 Oximetry O2 Sat by Pulse Oximetry [ Assessment] 01/11/20 01/11/20 01/11/20 10:30 10:45 11:00 Temperature Pulse Rate 78 84 80 Pulse Rate [ From Monitor] Respiratory 22 20 21 Rate Respiratory Rate [Abdomen] Blood Pressure 108/71 119/72 109/77 O2 Sat by Pulse 97 98 99 Oximetry O2 Sat by Pulse Oximetry [ Assessment] 01/11/20 01/11/20 01/11/20 11:15 11:30 11:35 Temperature Pulse Rate 80 79 79 Pulse Rate [ From Monitor] Respiratory 20 19 19 Rate Respiratory Rate [Abdomen] Blood Pressure 108/78 103/76 103/76 O2 Sat by Pulse 100 99 100 Oximetry O2 Sat by Pulse Oximetry [ Assessment] 01/11/20 01/11/20 01/11/20 11:45 12:00 12:15 Temperature 98.7 F Pulse Rate 77 78 90 Pulse Rate [ 78 From Monitor] Respiratory 19 20 21 Rate Respiratory Rate [Abdomen] Blood Pressure 105/72 102/75 103/76 O2 Sat by Pulse 99 99 100 Oximetry O2 Sat by Pulse Oximetry [ Assessment] 01/11/20 01/11/20 01/11/20 12:30 12:45 13:00 Temperature Pulse Rate 93 H 91 H Pulse Rate [ From Monitor] Respiratory 21 21 Rate Respiratory Rate [Abdomen] Blood Pressure 138/96 129/93 132/91 O2 Sat by Pulse 99 98 99 Oximetry O2 Sat by Pulse Oximetry [ Assessment] 01/11/20 01/11/20 01/11/20 13:02 13:15 13:30 Temperature Pulse Rate 87 80 81 Pulse Rate [ From Monitor] Respiratory 20 19 Rate Respiratory Rate [Abdomen] Blood Pressure 132/91 124/80 117/83 O2 Sat by Pulse 99 98 Oximetry O2 Sat by Pulse Oximetry [ Assessment] 01/11/20 01/11/20 01/11/20 13:45 14:00 14:15 Temperature Pulse Rate 81 78 78 Pulse Rate [ From Monitor] Respiratory 19 18 18 Rate Respiratory Rate [Abdomen] Blood Pressure 118/80 113/83 112/79 O2 Sat by Pulse 98 98 99 Oximetry O2 Sat by Pulse Oximetry [ Assessment] 01/11/20 01/11/20 01/11/20 14:31 14:45 15:00 Temperature Pulse Rate 80 80 87 Pulse Rate [ From Monitor] Respiratory 21 20 21 Rate Respiratory Rate [Abdomen] Blood Pressure 116/81 116/84 122/89 O2 Sat by Pulse 98 99 98 Oximetry O2 Sat by Pulse Oximetry [ Assessment] 01/11/20 01/11/20 01/11/20 15:15 15:28 15:30 Temperature Pulse Rate 88 88 87 Pulse Rate [ From Monitor] Respiratory 18 22 22 Rate Respiratory Rate [Abdomen] Blood Pressure 116/90 116/90 110/89 O2 Sat by Pulse 99 100 100 Oximetry O2 Sat by Pulse Oximetry [ Assessment] 01/11/20 01/11/20 01/11/20 15:45 16:00 16:15 Temperature Pulse Rate 79 81 82 Pulse Rate [ From Monitor] Respiratory 21 23 22 Rate Respiratory Rate [Abdomen] Blood Pressure 113/80 111/79 111/79 O2 Sat by Pulse 100 99 98 Oximetry O2 Sat by Pulse Oximetry [ Assessment] - General physical appearance Narrative Exam: Gen: Sleeping but arousable. NAD ENT: Trach in place, site c/d/i CV: S1, S2+ Resp: even and unlabored Abd: soft, protuberant, mildly distended, NT Ext: edema - sánchez with scant dark kathryn urine - Labs 01/09/20 04:11 01/10/20 04:05
[2020-01-11] MEDS: ACETAMINOPHEN 325 MG/10.15 ML ORAL LIQD UNIT DOSE FEEDTUBE PRN (21:03)
[2020-01-11] MEDS: TAMSULOSIN 0.4 MG CAP PO SCH (21:05)
[2020-01-11] MEDS: APIXABAN 5 MG TAB PO SCH (21:05)
[2020-01-11] MEDS: POLYETHYLENE GLYCOL 3350 17 GM POWDER PO SCH (21:06)
[2020-01-12 00:55] LABS: Basophils # (Auto) 0.1 K/mm3 (0.0-0.1); Basophils % (Auto) 0.9 % (0.0-1.8); Eosinophils # (Auto) 0.2 K/mm3 (0.0-0.4); Eosinophils % (Auto) 2.2 % (0.0-4.3); Hematocrit 31.6 % (35.5-45.6); Hemoglobin 9.8 gm/dl (11.8-15.2); Lymphocytes # (Auto) 2.2 K/mm3 (1.2-5.4); Lymphocytes % (Auto) 24.1 % (13.4-35.0); Mean Corpuscular HGB Conc 31 % (32-34); Mean Corpuscular Volume 83 fl (84-94); Monocytes # (Auto) 0.7 K/mm3 (0.0-0.8); Platelet Count 250 K/mm3 (140-440); Red Blood Count 3.81 M/mm3 (3.65-5.03); Red Cell Distribution Width 17.8 % (13.2-15.2)
[2020-01-12 01:13] LABS: Alanine Aminotransferase 22 units/L (7-56); Albumin 2.6 g/dL (3.9-5); Blood Urea Nitrogen 11 mg/dL (9-20); Calcium 8.8 mg/dL (8.4-10.2); Hemolysis Index 3
[2020-01-12 01:16] LABS: BUN/Creatinine Ratio 16
[2020-01-12] MEDS: METOPROLOL TARTRATE 25 MG TAB PO SCH ×4 (02:51→20:24)
[2020-01-12 06:24] LABS: Hematocrit 30.9 % (35.5-45.6); Hemoglobin 9.6 gm/dl (11.8-15.2); Mean Corpuscular HGB Conc 31 % (32-34); Mean Corpuscular Volume 81 fl (84-94); Platelet Count 248 K/mm3 (140-440); Red Cell Distribution Width 17.3 % (13.2-15.2)
[2020-01-12 06:50] LABS: Blood Urea Nitrogen 11 mg/dL (9-20); Calcium 8.8 mg/dL (8.4-10.2); Hemolysis Index 5
[2020-01-12 06:52] LABS: BUN/Creatinine Ratio 16
[2020-01-12] MEDS: QUEtiapine 200 MG TAB PO SCH ×2 (10:02→21:43)
[2020-01-12] MEDS: DOCUSATE SODIUM 100 MG/10 ML ORAL LIQD FEEDTUBE SCH ×2 (10:02→21:43)
[2020-01-12] MEDS: AMIODARONE 200 MG TAB PO SCH ×2 (10:03→21:43)
[2020-01-12] MEDS: FAMOTIDINE 20 MG TAB PO SCH ×2 (10:03→21:43)
[2020-01-12] MEDS: APIXABAN 5 MG TAB PO SCH ×2 (10:03→21:43)
--- NOTE | 2020-01-12 11:20 | Progress Note ---
Assessment and Plan Atrial fibrillation, paroxysmal on amiodarone and metoprolol currently in sinus rhythm Ischemic Cardiomyopathy re-echo this presentation reports an LVEF 40-45%. echo 08/2018: decreased LVEF 20-25%. Hx of CAD [facility] 12/2018: mild in-stent restenosis. No significant residual disease. Multifocal pneumonia negative COVID-19 test x 2 Chronic Respiratory failure s/p trach and mechanically ventilated History of COPD Acute PE/DVT -initiated on Eliquis Anemia Partial SBO vs ileus Recommendations: Continue amiodarone and metoprolol for paroxysmal atrial fibrillation. Otherwise, conservative cardiac management. Subjective Date of service: 01/12/20 Principal diagnosis: Ac hypoxemic resp failure; Pneumonia; PUI COVID-19; CHF; COPD; HTN Interval history: Stable sinus rhythm on telemetry. Objective Vital Signs Temp Pulse Pulse Resp Resp BP Pulse Ox 01/12/20 11:16 86 18 105/75 98 01/12/20 11:15 85 21 105/75 96 01/12/20 11:00 83 24 106/73 97 01/12/20 10:45 84 23 116/69 94 01/12/20 10:30 95 H 21 127/85 97 01/12/20 10:15 85 24 124/81 96 01/12/20 10:02 87 120/75 01/12/20 10:00 87 24 120/75 95 01/12/20 09:45 87 22 118/76 96 01/12/20 09:30 82 23 111/75 94 01/12/20 09:15 82 24 115/76 94 01/12/20 09:00 88 23 117/81 96 01/12/20 08:45 94 H 14 130/79 97 01/12/20 08:33 85 22 119/79 100 01/12/20 08:30 89 26 H 119/79 100 01/12/20 08:15 83 21 113/77 99 01/12/20 08:00 98.3 F 80 80 17 103/73 97 01/12/20 07:45 83 24 113/77 99 01/12/20 07:30 83 21 112/73 99 01/12/20 07:15 84 19 111/74 100 01/12/20 07:00 84 19 122/74 99 01/12/20 06:45 85 21 117/76 99 10/20/20 06:30 86 21 122/79 99 10/20/20 06:15 87 20 116/83 99 10/20/20 06:00 91 H 21 125/84 100 10/20/20 05:45 87 19 115/80 98 10/20/20 05:30 83 19 118/75 97 10/20/20 05:15 89 20 122/78 97 10/20/20 05:00 92 H 22 123/81 98 10/20/20 04:45 98 H 18 117/80 99 10/20/20 04:31 89 21 117/80 98 10/20/20 04:23 88 117/80 98 10/20/20 04:15 87 16 117/80 98 10/20/20 04:00 98.4 F 85 88 19 111/82 97 10/20/20 03:57 10/20/20 03:45 84 22 100/74 98 10/20/20 03:30 86 21 107/75 98 10/20/20 03:15 85 20 107/76 98 10/20/20 03:00 84 21 111/74 98 10/20/20 02:45 83 20 110/74 99 10/20/20 02:30 82 20 105/71 98 10/20/20 02:15 78 19 95/69 98 10/20/20 02:00 79 19 100/69 97 10/20/20 01:45 84 21 111/75 98 10/20/20 01:30 85 22 116/84 97 10/20/20 01:15 78 19 98/72 99 10/20/20 01:00 73 19 91/65 99 10/20/20 00:45 75 18 96/68 99 10/20/20 00:30 79 18 102/75 96 10/20/20 00:15 76 18 94/68 99 10/20/20 00:05 76 100/67 100 10/20/20 00:00 77 76 18 22 100/67 99 10/19/20 23:45 76 20 92/66 98 10/19/20 23:39 98.2 F 10/19/20 23:30 77 20 99/67 100 10/19/20 23:15 82 18 100/73 100 10/19/20 23:03 77 21 88/61 100 10/19/20 23:00 76 19 88/61 100 10/19/20 22:45 76 20 87/58 98 19/20 22:30 79 19 94/67 98 01/10/20 22:15 76 20 93/54 98 19/20 22:03 23 01/10/20 22:00 73 20 94/51 97 19/20 21:45 81 20 99/65 97 19/20 21:30 82 21 91/67 97 20 21:15 83 22 106/70 100 20 21:03 21 20 21:00 84 23 103/71 97 19/20 20:45 82 22 104/64 96 19/20 20:30 85 22 103/73 96 01/10/20 20:15 83 22 109/66 97 01/10/20 20:12 99.3 F 20 20:00 85 78 22 104/62 99 01/10/20 19:45 84 22 103/68 95 20 19:35 89 109/80 99 20 19:30 91 H 19 109/80 97 20 19:15 90 24 118/80 95 01/10/20 19:00 82 20 98/66 99 01/10/20 18:49 81 92/70 01/10/20 18:45 82 22 92/70 100 19/20 18:30 81 20 96/66 98 01/10/20 18:15 80 22 95/64 97 01/10/20 18:00 81 21 93/64 99 19/20 17:45 80 22 94/65 99 19/20 17:30 81 21 101/60 96 19/20 17:21 01/10/20 17:19 83 21 102/62 99 19/20 17:15 83 20 102/62 99 01/10/20 17:00 87 22 96/68 19/20 16:45 87 11 L 110/84 98 19/20 16:30 85 24 110/84 98 19/20 16:15 82 22 111/79 98 19/20 16:00 98.3 F 81 81 23 111/79 99 19/20 15:45 79 21 113/80 100 19/20 15:30 87 22 110/89 100 01/10/20 15:28 88 22 116/90 100 01/10/20 15:15 88 18 116/90 99 20 15:00 87 21 122/89 98 20 14:45 80 20 116/84 99 01/10/20 14:31 80 21 116/81 98 01/10/20 14:15 78 18 112/79 99 01/11/20 14:00 78 18 113/83 98 01/11/20 13:45 81 19 118/80 98 01/11/20 13:30 81 19 117/83 98 01/11/20 13:15 80 20 124/80 99 01/11/20 13:02 87 132/91 01/11/20 13:00 132/91 99 01/11/20 12:45 91 H 21 129/93 98 01/11/20 12:30 93 H 21 138/96 99 01/11/20 12:15 90 21 103/76 100 01/11/20 12:00 98.7 F 78 78 20 102/75 99 01/11/20 11:45 77 19 105/72 99 01/11/20 11:35 79 19 103/76 100 20 11:30 79 19 103/76 99 Pulse Ox 01/12/20 11:16 20 11:15 20 11:00 20 10:45 01/11/20 10:30 01/11/20 10:15 20/20 10:02 20 10:00 20/20 09:45 20/20 09:30 20/20 09:15 20/20 09:00 20/20 08:45 20/20 08:33 1020/20 08:30 20/20 08:15 20/20 08:00 20/20 07:45 20/20 07:30 20/20 07:15 20/20 07:00 20/20 06:45 20/20 06:30 1020/20 06:15 20/20 06:00 20/20 05:45 20/20 05:30 20/20 05:15 10/20/20 05:00 10/20/20 04:45 01/12/20 04:31 01/12/20 04:23 01/12/20 04:15 01/12/20 04:00 01/12/20 03:57 99 01/12/20 03:45 01/12/20 03:30 01/12/20 03:15 01/12/20 03:00 01/12/20 02:45 01/12/20 02:30 01/12/20 02:15 01/12/20 02:00 01/12/20 01:45 01/12/20 01:30 01/12/20 01:15 01/12/20 01:00 01/12/20 00:45 01/12/20 00:30 01/12/20 00:15 01/12/20 00:05 01/12/20 00:00 01/11/20 23:45 01/11/20 23:39 01/11/20 23:30 01/11/20 23:15 01/11/20 23:03 01/11/20 23:00 01/11/20 22:45 01/11/20 22:30 01/11/20 22:15 01/11/20 22:03 01/11/20 22:00 01/11/20 21:45 01/11/20 21:30 01/11/20 21:15 01/11/20 21:03 01/11/20 21:00 01/11/20 20:45 01/11/20 20:30 01/11/20 20:15 01/11/20 20:12 01/11/20 20:00 01/11/20 19:45 01/11/20 19:35 01/11/20 19:30 01/11/20 19:15 01/11/20 19:00 01/11/20 18:49 01/11/20 18:45 01/11/20 18:30 01/11/20 18:15 01/11/20 18:00 01/11/20 17:45 01/11/20 17:30 01/11/20 17:21 99 01/11/20 17:19 01/11/20 17:15 01/11/20 17:00 01/11/20 16:45 01/11/20 16:30 01/11/20 16:15 01/11/20 16:00 01/11/20 15:45 01/11/20 15:30 01/11/20 15:28 01/11/20 15:15 01/11/20 15:00 01/11/20 14:45 01/11/20 14:31 01/11/20 14:15 01/11/20 14:00 01/11/20 13:45 01/11/20 13:30 01/11/20 13:15 01/11/20 13:02 01/11/20 13:00 01/11/20 12:45 01/11/20 12:30 01/11/20 12:15 01/11/20 12:00 01/11/20 11:45 01/11/20 11:35 01/11/20 11:30 - Physical Examination General: Other (vent to trach) HEENT: Positive: PERRL Cardiac: Positive: Reg Rate and Rhythm - Labs and Meds Cardiac Enzymes 01/12/20 Range/Units 00:23 AST 16 (5-40) units/L CBC 01/12/20 01/12/20 Range/Units 00:23 04:18 WBC 9.3 8.8 (4.5-11.0) K/mm3 RBC 3.81 3.80 (3.65-5.03) M/mm3 Hgb 9.8 L 9.6 L (11.8-15.2) gm/dl Hct 31.6 L 30.9 L (35.5-45.6) % Plt Count 250 248 (140-440) K/mm3 Lymph # (Auto) 2.2 (1.2-5.4) K/mm3 [place] # (Auto) 0.7 (0.0-0.8) K/mm3 Eos # (Auto) 0.2 (0.0-0.4) K/mm3 Baso # (Auto) 0.1 (0.0-0.1) K/mm3 Comprehensive Metabolic Panel 01/12/20 01/12/20 Range/Units 00:23 04:18 Sodium 144 143 (137-145) mmol/L Potassium 3.6 3.8 (3.6-5.0) mmol/L Chloride 102.9 100.8 (98-107) mmol/L Carbon Dioxide 29 28 (22-30) mmol/L BUN 11 11 (9-20) mg/dL Creatinine 0.7 L 0.7 L (0.8-1.3) mg/dL Glucose 111 H 108 H (75-100) mg/dL Calcium 8.8 8.8 (8.4-10.2) mg/dL AST 16 (5-40) units/L ALT 22 (7-56) units/L Alkaline Phosphatase 59 (35-129) units/L Total Protein 6.3 (6.3-8.2) g/dL Albumin 2.6 L (3.9-5) g/dL - Allied health notes Allied health notes reviewed: nursing
--- NOTE | 2020-01-12 11:59 | Progress Note ---
Assessment and Plan Acute hypoxemic respiratory failure Bilateral pneumonia, community acquired. Acute LLL branch P.E. Acute DVT Person under investigation for COVID-19 infection. Acute congestive heart failure exacerbation. History of cerebrovascular accident. Acute chronic obstructive pulmonary disease exacerbation. Hypertension and hypertensive urgency at presentation. History of arthritis. Leukocytosis. Lactic acidosis. 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 - discharge planning ongoing concurrently - continue scopolamine patch for secretions - continue care as below otherwise; - continue seroquel for anxiolysis / delirium - COVID isolation per facility protocol - prn diuresis while following electrolytes / I's & O's - continue to wean oxygen for O2 sat's > 92% - continue bronchodilators with routine trach care and pulmonary hygiene per RT - VAP bundle addressed (Aspiration precautions, HOB >40) - continue to wean per pulmonary driven protocols - sedation target is RASS 0 to -1 - continue prn analgesia per CPOT score - follow clinically re: fever curves / trend WBC - Avoid delirium (no benzodiazepines if they can be avoided) - Maintain sleep-wake cycle - enteral nutrition at goal rate as tolerated - continue accucheck's with glycemic control per SSI for target blood glucose g oal of 140-180 mg/dL while critically ill; Avoid hypoglycemia - continue stress ulcer prophylaxis with Famotidine - continue mobility protocols for pressure ulcer prophylaxis - continue fall precautions - continue wound care management per RN / WCT - Supportive transfusions to keep HgB>7g/dL - CXR's and ABG's prn - Continue to monitor neurologic function - Continue chronic home medications - Continue all supportive care ........ re-evaluate in am & prn CONDITION: CRITICAL PROGNOSIS: GUARDED CODE STATUS: FULL CODE The high probability of a clinically significant, sudden or life threatening deterioration of the [Respiratory, cardiovascular & neurological] system(s) required my full and direct attention, intervention and personal management. The aggregate critical care time was [36] minutes without overlap. Time includes spent on [x] Data Review and interpretation [x] Patient assessment and monitoring of vital signs [x] Documentation [x] Medication orders and management Subjective Date of service: 01/10/20 Principal diagnosis: Ac hypoxemic resp failure; Pneumonia; PUI COVID-19; CHF; COPD; HTN Interval history: Subjective Date of service: 01/12/20 Principal diagnosis: Ac hypoxemic resp failure; Pneumonia; PUI COVID-19; CHF; COPD; HTN Interval history: Patient is seen today for: Acute hypoxemic respiratory failure; Adan. Pneumonia (CAP); PUI COVID-19 infection; AE-CHF; AE-COPD; H/O CVA; HTN Seen and examined at bedside; 24 hour events reviewed; nursing and respiratory care staff consulted; no adverse overnight events reported to me; resting peacefully in bed; remains on MVS; secretions largte today; denies chest pains; on SBT and tolerating well now (12/28 PSV) Objective Vital Signs - 12hr 01/12/20 01/12/20 01/12/20 00:00 00:05 00:15 Temperature Pulse Rate 77 76 76 Pulse Rate [ 76 From Monitor] Respiratory 18 18 Rate Respiratory 22 Rate [Abdomen] Blood Pressure 100/67 100/67 94/68 O2 Sat by Pulse 99 100 99 Oximetry O2 Sat by Pulse Oximetry [ Assessment] 01/12/20 01/12/20 01/12/20 00:30 00:45 01:00 Temperature Pulse Rate 79 75 73 Pulse Rate [ From Monitor] Respiratory 18 18 19 Rate Respiratory Rate [Abdomen] Blood Pressure 102/75 96/68 91/65 O2 Sat by Pulse 96 99 99 Oximetry O2 Sat by Pulse Oximetry [ Assessment] 01/12/20 01/12/20 01/12/20 01:15 01:30 01:45 Temperature Pulse Rate 78 85 84 Pulse Rate [ From Monitor] Respiratory 19 22 21 Rate Respiratory Rate [Abdomen] Blood Pressure 98/72 116/84 111/75 O2 Sat by Pulse 99 97 98 Oximetry O2 Sat by Pulse Oximetry [ Assessment] 01/12/20 01/12/20 01/12/20 02:00 02:15 02:30 Temperature Pulse Rate 79 78 82 Pulse Rate [ From Monitor] Respiratory 19 19 20 Rate Respiratory Rate [Abdomen] Blood Pressure 100/69 95/69 105/71 O2 Sat by Pulse 97 98 98 Oximetry O2 Sat by Pulse Oximetry [ Assessment] 01/12/20 01/12/20 01/12/20 02:45 03:00 03:15 Temperature Pulse Rate 83 84 85 Pulse Rate [ From Monitor] Respiratory 20 21 20 Rate Respiratory Rate [Abdomen] Blood Pressure 110/74 111/74 107/76 O2 Sat by Pulse 99 98 98 Oximetry O2 Sat by Pulse Oximetry [ Assessment] 01/12/20 01/12/20 01/12/20 03:30 03:45 03:57 Temperature Pulse Rate 86 84 Pulse Rate [ From Monitor] Respiratory 21 22 Rate Respiratory Rate [Abdomen] Blood Pressure 107/75 100/74 O2 Sat by Pulse 98 98 Oximetry O2 Sat by Pulse 99 Oximetry [ Assessment] 01/12/20 01/12/20 01/12/20 04:00 04:15 04:23 Temperature 98.4 F Pulse Rate 85 87 88 Pulse Rate [ 88 From Monitor] Respiratory 19 16 Rate Respiratory Rate [Abdomen] Blood Pressure 111/82 117/80 117/80 O2 Sat by Pulse 97 98 98 Oximetry O2 Sat by Pulse Oximetry [ Assessment] 01/12/20 01/12/20 01/12/20 04:31 04:45 05:00 Temperature Pulse Rate 89 98 H 92 H Pulse Rate [ From Monitor] Respiratory 21 18 22 Rate Respiratory Rate [Abdomen] Blood Pressure 117/80 117/80 123/81 O2 Sat by Pulse 98 99 98 Oximetry O2 Sat by Pulse Oximetry [ Assessment] 01/12/20 01/12/20 01/12/20 05:15 05:30 05:45 Temperature Pulse Rate 89 83 87 Pulse Rate [ From Monitor] Respiratory 20 19 19 Rate Respiratory Rate [Abdomen] Blood Pressure 122/78 118/75 115/80 O2 Sat by Pulse 97 97 98 Oximetry O2 Sat by Pulse Oximetry [ Assessment] 01/12/20 01/12/20 01/12/20 06:00 06:15 06:30 Temperature Pulse Rate 91 H 87 86 Pulse Rate [ From Monitor] Respiratory 21 20 21 Rate Respiratory Rate [Abdomen] Blood Pressure 125/84 116/83 122/79 O2 Sat by Pulse 100 99 99 Oximetry O2 Sat by Pulse Oximetry [ Assessment] 01/12/20 01/12/20 01/12/20 06:45 07:00 07:15 Temperature Pulse Rate 85 84 84 Pulse Rate [ From Monitor] Respiratory 21 19 19 Rate Respiratory Rate [Abdomen] Blood Pressure 117/76 122/74 111/74 O2 Sat by Pulse 99 99 100 Oximetry O2 Sat by Pulse Oximetry [ Assessment] 01/12/20 01/12/20 01/12/20 07:30 07:45 08:00 Temperature 98.3 F Pulse Rate 83 83 80 Pulse Rate [ 80 From Monitor] Respiratory 21 24 17 Rate Respiratory Rate [Abdomen] Blood Pressure 112/73 113/77 103/73 O2 Sat by Pulse 99 99 97 Oximetry O2 Sat by Pulse Oximetry [ Assessment] 01/12/20 01/12/20 01/12/20 08:15 08:30 08:33 Temperature Pulse Rate 83 89 85 Pulse Rate [ From Monitor] Respiratory 21 26 H 22 Rate Respiratory Rate [Abdomen] Blood Pressure 113/77 119/79 119/79 O2 Sat by Pulse 99 100 100 Oximetry O2 Sat by Pulse Oximetry [ Assessment] 01/12/20 01/12/20 01/12/20 08:45 09:00 09:15 Temperature Pulse Rate 94 H 88 82 Pulse Rate [ From Monitor] Respiratory 14 23 24 Rate Respiratory Rate [Abdomen] Blood Pressure 130/79 117/81 115/76 O2 Sat by Pulse 97 96 94 Oximetry O2 Sat by Pulse Oximetry [ Assessment] 01/12/20 01/12/20 01/12/20 09:30 09:45 10:00 Temperature Pulse Rate 82 87 87 Pulse Rate [ From Monitor] Respiratory 23 22 24 Rate Respiratory Rate [Abdomen] Blood Pressure 111/75 118/76 120/75 O2 Sat by Pulse 94 96 95 Oximetry O2 Sat by Pulse Oximetry [ Assessment] 01/12/20 01/12/20 01/12/20 10:02 10:15 10:30 Temperature Pulse Rate 87 85 95 H Pulse Rate [ From Monitor] Respiratory 24 21 Rate Respiratory Rate [Abdomen] Blood Pressure 120/75 124/81 127/85 O2 Sat by Pulse 96 97 Oximetry O2 Sat by Pulse Oximetry [ Assessment] 01/12/20 01/12/20 01/12/20 10:45 11:00 11:15 Temperature Pulse Rate 84 83 85 Pulse Rate [ From Monitor] Respiratory 23 24 21 Rate Respiratory Rate [Abdomen] Blood Pressure 116/69 106/73 105/75 O2 Sat by Pulse 94 97 96 Oximetry O2 Sat by Pulse Oximetry [ Assessment] 01/12/20 11:16 Temperature Pulse Rate 86 Pulse Rate [ From Monitor] Respiratory 18 Rate Respiratory Rate [Abdomen] Blood Pressure 105/75 O2 Sat by Pulse 98 Oximetry O2 Sat by Pulse Oximetry [ Assessment] Constitutional: no acute distress, other (elelderly and obese male, normocephalic with mildly increased respiratory effort at rest on MVS) Eyes: non-icteric ENT: oropharynx moist, other (trach to MVS, NGT to LIS) Neck: supple, no JVD Effort: mildly labored Ascultation: Bilateral: diminished breath sounds, rhonchi Percussion: Bilateral: not dull Cardiovascular: irregular rhythm, other (S1,S2) Gastrointestinal: normoactive bowel sounds, soft, non-tender, other (protuberant; PEG in place) Integumentary: normal Extremities: no cyanosis, pulses normal, no ischemia or petechiae, edema (bilateral upper ) Neurologic: non-focal exam (moves extremities), pupils equal and round, CN II- XII normal, motor strength normal and (weak) Psychiatric: mood appropriate, affect normal CBC and BMP: 01/12/20 04:18 01/12/20 04:18 ABG, PT/INR, D-dimer: ABG ABG pH 7.415 pH Units (7.350-7.450) 01/03/20 18:30 POC ABG pCO2 52.9 mmHg (32.0-48.0) H 12/22/19 03:22 ABG pCO2 57.6 mm Hg 01/03/20 18:30 POC ABG pO2 52.3 mmHg (83-108) L 12/22/19 03:22 ABG pO2 70.7 mm Hg (80.0-90.0) L 01/03/20 18:30 POC ABG HCO3 33.4 12/22/19 03:22 ABG O2 Saturation 94.4 % (95.0-99.0) L 01/03/20 18:30 PT/INR, D-dimer PT 13.8 Sec. (12.2-14.9) 12/21/19 10:13 INR 1.05 (0.87-1.13) 12/21/19 10:13 Abnormal lab findings: Abnormal Labs 11/24/19 11/24/19 11/24/19 02:53 02:53 03:45 WBC 14.3 H RBC Hgb Hct MCHC RDW 17.2 H MCV MCH Lymph % (Auto) Wright % (Auto) Wright # Eos # Lymph # (Auto) Wright # (Auto) Eos # (Auto) Seg Neutrophils % Seg Neuts % (Manual) Baso # (Auto) Lymphocytes % (Manual) Monocytes % (Manual) Eosinophils % (Manual) Basophils % (Manual) Seg Neutrophils # Seg Neutrophils # Man 8.3 H Lymphocytes # (Manual) Monocytes # (Manual) 0.9 H Eosinophils # (Manual) Nucleated RBC % Basophils # (Manual) APTT Heparin Anti-Xa Level ABG pH 7.313 L POC ABG pO2 ABG pO2 102.8 H ABG HCO3 ABG O2 Saturation ABG Base Excess -2.9 L POC ABG pCO2 ABG Hemoglobin ABG Oxyhemoglobin Oxyhemoglobin 93.9 L Sodium Potassium Chloride Carbon Dioxide BUN Creatinine Glucose 195 H POC Glucose Lactic Acid Calcium Phosphorus Magnesium AST ALT Lactate Dehydrogenase CK-MB (CK-2) 4.3 H C-Reactive Protein NT-Pro-B Natriuret Pep 1181 H Total Protein Albumin Urine WBC (Auto) 11/24/19 11/24/19 11/24/19 04:53 04:53 10:37 WBC RBC Hgb Hct MCHC RDW MCV MCH Lymph % (Auto) Wright % (Auto) Wright # Eos # Lymph # (Auto) Wright # (Auto) Eos # (Auto) Seg Neutrophils % Seg Neuts % (Manual) Baso # (Auto) Lymphocytes % (Manual) Monocytes % (Manual) Eosinophils % (Manual) Basophils % (Manual) Seg Neutrophils # Seg Neutrophils # Man Lymphocytes # (Manual) Monocytes # (Manual) Eosinophils # (Manual) Nucleated RBC % Basophils # (Manual) APTT Heparin Anti-Xa Level ABG pH POC ABG pO2 ABG pO2 ABG HCO3 ABG O2 Saturation ABG Base Excess POC ABG pCO2 ABG Hemoglobin ABG Oxyhemoglobin Oxyhemoglobin Sodium Potassium Chloride Carbon Dioxide BUN Creatinine Glucose 162 H POC Glucose Lactic Acid 2.40 H* 2.50 H* Calcium Phosphorus Magnesium AST ALT Lactate Dehydrogenase 240 H CK-MB (CK-2) C-Reactive Protein NT-Pro-B Natriuret Pep Total Protein Albumin Urine WBC (Auto) 11/24/19 11/24/19 11/24/19 12:21 14:50 19:54 WBC RBC Hgb Hct MCHC RDW MCV MCH Lymph % (Auto) Wright % (Auto) Wright # Eos # Lymph # (Auto) Wright # (Auto) Eos # (Auto) Seg Neutrophils % Seg Neuts % (Manual) Baso # (Auto) Lymphocytes % (Manual) Monocytes % (Manual) Eosinophils % (Manual) Basophils % (Manual) Seg Neutrophils # Seg Neutrophils # Man Lymphocytes # (Manual) Monocytes # (Manual) Eosinophils # (Manual) Nucleated RBC % Basophils # (Manual) APTT Heparin Anti-Xa Level ABG pH POC ABG pO2 ABG pO2 ABG HCO3 ABG O2 Saturation ABG Base Excess POC ABG pCO2 ABG Hemoglobin ABG Oxyhemoglobin Oxyhemoglobin Sodium Potassium Chloride Carbon Dioxide BUN Creatinine Glucose POC Glucose 145 H 143 H 124 H Lactic Acid Calcium Phosphorus Magnesium AST ALT Lactate Dehydrogenase CK-MB (CK-2) C-Reactive Protein NT-Pro-B Natriuret Pep Total Protein Albumin Urine WBC (Auto) 11/25/19 11/25/19 11/25/19 00:18 03:18 05:11 WBC 13.7 H RBC Hgb Hct MCHC RDW 17.1 H MCV MCH Lymph % (Auto) 10.8 L Wright % (Auto) 8.7 H Wright # 1.2 H Eos # Lymph # (Auto) Wright # (Auto) Eos # (Auto) Seg Neutrophils % 80.2 H Seg Neuts % (Manual) Baso # (Auto) Lymphocytes % (Manual) Monocytes % (Manual) Eosinophils % (Manual) Basophils % (Manual) Seg Neutrophils # 11.0 H Seg Neutrophils # Man Lymphocytes # (Manual) Monocytes # (Manual) Eosinophils # (Manual) Nucleated RBC % Basophils # (Manual) APTT Heparin Anti-Xa Level ABG pH 7.333 L POC ABG pO2 ABG pO2 61.2 L ABG HCO3 ABG O2 Saturation 90.2 L ABG Base Excess POC ABG pCO2 ABG Hemoglobin 13.7 L ABG Oxyhemoglobin Oxyhemoglobin 88.2 L Sodium Potassium Chloride Carbon Dioxide BUN Creatinine Glucose POC Glucose 109 H Lactic Acid Calcium Phosphorus Magnesium AST ALT Lactate Dehydrogenase CK-MB (CK-2) C-Reactive Protein NT-Pro-B Natriuret Pep Total Protein Albumin Urine WBC (Auto) 11/25/19 11/25/19 11/26/19 05:11 11:40 03:12 WBC RBC Hgb Hct MCHC RDW MCV MCH Lymph % (Auto) Wright % (Auto) Wright # Eos # Lymph # (Auto) Wright # (Auto) Eos # (Auto) Seg Neutrophils % Seg Neuts % (Manual) Baso # (Auto) Lymphocytes % (Manual) Monocytes % (Manual) Eosinophils % (Manual) Basophils % (Manual) Seg Neutrophils # Seg Neutrophils # Man Lymphocytes # (Manual) Monocytes # (Manual) Eosinophils # (Manual) Nucleated RBC % Basophils # (Manual) APTT Heparin Anti-Xa Level ABG pH POC ABG pO2 ABG pO2 155.1 H ABG HCO3 27.8 H ABG O2 Saturation ABG Base Excess POC ABG pCO2 ABG Hemoglobin 12.2 L ABG Oxyhemoglobin Oxyhemoglobin Sodium Potassium Chloride Carbon Dioxide BUN 23 H Creatinine Glucose 110 H POC Glucose 108 H Lactic Acid Calcium Phosphorus Magnesium AST ALT Lactate Dehydrogenase CK-MB (CK-2) C-Reactive Protein NT-Pro-B Natriuret Pep Total Protein Albumin Urine WBC (Auto) 11/26/19 11/26/19 11/26/19 06:17 10:43 10:43 WBC 11.4 H RBC Hgb Hct MCHC RDW 17.1 H MCV MCH Lymph % (Auto) Wright % (Auto) Wright # Eos # Lymph # (Auto) Wright # (Auto) Eos # (Auto) Seg Neutrophils % Seg Neuts % (Manual) Baso # (Auto) Lymphocytes % (Manual) Monocytes % (Manual) Eosinophils % (Manual) Basophils % (Manual) Seg Neutrophils # Seg Neutrophils # Man Lymphocytes # (Manual) Monocytes # (Manual) Eosinophils # (Manual) Nucleated RBC % Basophils # (Manual) APTT Heparin Anti-Xa Level ABG pH POC ABG pO2 ABG pO2 ABG HCO3 ABG O2 Saturation ABG Base Excess POC ABG pCO2 ABG Hemoglobin ABG Oxyhemoglobin Oxyhemoglobin Sodium Potassium Chloride Carbon Dioxide BUN 29 H Creatinine Glucose POC Glucose 107 H Lactic Acid Calcium Phosphorus Magnesium AST ALT Lactate Dehydrogenase CK-MB (CK-2) C-Reactive Protein NT-Pro-B Natriuret Pep Total Protein Albumin Urine WBC (Auto) 11/26/19 11/27/19 11/27/19 17:11 01:53 04:11 WBC RBC Hgb Hct MCHC RDW MCV MCH Lymph % (Auto) Wright % (Auto) Wright # Eos # Lymph # (Auto) Wright # (Auto) Eos # (Auto) Seg Neutrophils % Seg Neuts % (Manual) Baso # (Auto) Lymphocytes % (Manual) Monocytes % (Manual) Eosinophils % (Manual) Basophils % (Manual) Seg Neutrophils # Seg Neutrophils # Man Lymphocytes # (Manual) Monocytes # (Manual) Eosinophils # (Manual) Nucleated RBC % Basophils # (Manual) APTT Heparin Anti-Xa Level ABG pH POC ABG pO2 ABG pO2 ABG HCO3 29.2 H ABG O2 Saturation ABG Base Excess 3.4 H POC ABG pCO2 ABG Hemoglobin 13.3 L ABG Oxyhemoglobin Oxyhemoglobin 94.5 L Sodium Potassium Chloride Carbon Dioxide BUN Creatinine Glucose POC Glucose 113 H 108 H Lactic Acid Calcium Phosphorus Magnesium AST ALT Lactate Dehydrogenase CK-MB (CK-2) C-Reactive Protein NT-Pro-B Natriuret Pep Total Protein Albumin Urine WBC (Auto) 11/27/19 11/28/19 11/28/19 05:27 05:00 05:25 WBC RBC Hgb Hct MCHC RDW MCV MCH Lymph % (Auto) Wright % (Auto) Wright # Eos # Lymph # (Auto) Wright # (Auto) Eos # (Auto) Seg Neutrophils % Seg Neuts % (Manual) Baso # (Auto) Lymphocytes % (Manual) Monocytes % (Manual) Eosinophils % (Manual) Basophils % (Manual) Seg Neutrophils # Seg Neutrophils # Man Lymphocytes # (Manual) Monocytes # (Manual) Eosinophils # (Manual) Nucleated RBC % Basophils # (Manual) APTT Heparin Anti-Xa Level ABG pH POC ABG pO2 68.1 L ABG pO2 ABG HCO3 ABG O2 Saturation ABG Base Excess POC ABG pCO2 ABG Hemoglobin ABG Oxyhemoglobin 91.2 L Oxyhemoglobin Sodium Potassium Chloride Carbon Dioxide BUN Creatinine Glucose POC Glucose 111 H 110 H Lactic Acid Calcium Phosphorus Magnesium AST ALT Lactate Dehydrogenase CK-MB (CK-2) C-Reactive Protein NT-Pro-B Natriuret Pep Total Protein Albumin Urine WBC (Auto) 11/28/19 11/28/19 11/28/19 12:08 13:47 13:47 WBC 11.3 H RBC Hgb Hct MCHC RDW 16.1 H MCV MCH Lymph % (Auto) Wright % (Auto) 9.9 H Wright # 1.1 H Eos # Lymph # (Auto) Wright # (Auto) Eos # (Auto) Seg Neutrophils % 71.4 H Seg Neuts % (Manual) Baso # (Auto) Lymphocytes % (Manual) Monocytes % (Manual) Eosinophils % (Manual) Basophils % (Manual) Seg Neutrophils # 8.1 H Seg Neutrophils # Man Lymphocytes # (Manual) Monocytes # (Manual) Eosinophils # (Manual) Nucleated RBC % Basophils # (Manual) APTT Heparin Anti-Xa Level ABG pH POC ABG pO2 ABG pO2 ABG HCO3 ABG O2 Saturation ABG Base Excess POC ABG pCO2 ABG Hemoglobin ABG Oxyhemoglobin Oxyhemoglobin Sodium Potassium Chloride Carbon Dioxide BUN 23 H Creatinine Glucose 123 H POC Glucose 112 H Lactic Acid Calcium Phosphorus Magnesium AST ALT Lactate Dehydrogenase CK-MB (CK-2) C-Reactive Protein NT-Pro-B Natriuret Pep Total Protein Albumin 3.7 L Urine WBC (Auto) 11/28/19 11/29/19 11/29/19 17:26 03:55 17:04 WBC RBC Hgb Hct MCHC RDW MCV MCH Lymph % (Auto) Wright % (Auto) Wright # Eos # Lymph # (Auto) Wright # (Auto) Eos # (Auto) Seg Neutrophils % Seg Neuts % (Manual) Baso # (Auto) Lymphocytes % (Manual) Monocytes % (Manual) Eosinophils % (Manual) Basophils % (Manual) Seg Neutrophils # Seg Neutrophils # Man Lymphocytes # (Manual) Monocytes # (Manual) Eosinophils # (Manual) Nucleated RBC % Basophils # (Manual) APTT Heparin Anti-Xa Level ABG pH POC ABG pO2 ABG pO2 65.7 L ABG HCO3 28.3 H ABG O2 Saturation 93.9 L ABG Base Excess 3.6 H POC ABG pCO2 ABG Hemoglobin 13.3 L ABG Oxyhemoglobin Oxyhemoglobin 91.5 L Sodium Potassium Chloride Carbon Dioxide BUN Creatinine Glucose POC Glucose 123 H 119 H Lactic Acid Calcium Phosphorus Magnesium AST ALT Lactate Dehydrogenase CK-MB (CK-2) C-Reactive Protein NT-Pro-B Natriuret Pep Total Protein Albumin Urine WBC (Auto) 11/30/19 11/30/19 11/30/19 04:17 04:17 04:56 WBC 13.4 H RBC Hgb Hct MCHC RDW 15.6 H MCV MCH Lymph % (Auto) Wright % (Auto) Wright # Eos # Lymph # (Auto) Wright # (Auto) Eos # (Auto) Seg Neutrophils % Seg Neuts % (Manual) Baso # (Auto) Lymphocytes % (Manual) Monocytes % (Manual) Eosinophils % (Manual) Basophils % (Manual) Seg Neutrophils # Seg Neutrophils # Man Lymphocytes # (Manual) Monocytes # (Manual) Eosinophils # (Manual) Nucleated RBC % Basophils # (Manual) APTT Heparin Anti-Xa Level ABG pH POC ABG pO2 ABG pO2 56.3 L ABG HCO3 29.3 H ABG O2 Saturation 91.5 L ABG Base Excess 4.7 H POC ABG pCO2 ABG Hemoglobin 12.1 L ABG Oxyhemoglobin Oxyhemoglobin 89.2 L Sodium 147 H Potassium Chloride Carbon Dioxide BUN 30 H Creatinine Glucose 124 H POC Glucose Lactic Acid Calcium Phosphorus Magnesium AST ALT Lactate Dehydrogenase CK-MB (CK-2) C-Reactive Protein NT-Pro-B Natriuret Pep Total Protein Albumin 3.8 L Urine WBC (Auto) 11/30/19 11/30/19 11/30/19 05:51 11:54 18:17 WBC RBC Hgb Hct MCHC RDW MCV MCH Lymph % (Auto) Wright % (Auto) Wright # Eos # Lymph # (Auto) Wright # (Auto) Eos # (Auto) Seg Neutrophils % Seg Neuts % (Manual) Baso # (Auto) Lymphocytes % (Manual) Monocytes % (Manual) Eosinophils % (Manual) Basophils % (Manual) Seg Neutrophils # Seg Neutrophils # Man Lymphocytes # (Manual) Monocytes # (Manual) Eosinophils # (Manual) Nucleated RBC % Basophils # (Manual) APTT Heparin Anti-Xa Level ABG pH POC ABG pO2 ABG pO2 ABG HCO3 ABG O2 Saturation ABG Base Excess POC ABG pCO2 ABG Hemoglobin ABG Oxyhemoglobin Oxyhemoglobin Sodium Potassium Chloride Carbon Dioxide BUN Creatinine Glucose POC Glucose 127 H 115 H 143 H Lactic Acid Calcium Phosphorus Magnesium AST ALT Lactate Dehydrogenase CK-MB (CK-2) C-Reactive Protein NT-Pro-B Natriuret Pep Total Protein Albumin Urine WBC (Auto) 12/01/19 12/01/19 12/01/19 01:18 05:22 12:16 WBC RBC Hgb Hct MCHC RDW MCV MCH Lymph % (Auto) Wright % (Auto) Wright # Eos # Lymph # (Auto) Wright # (Auto) Eos # (Auto) Seg Neutrophils % Seg Neuts % (Manual) Baso # (Auto) Lymphocytes % (Manual) Monocytes % (Manual) Eosinophils % (Manual) Basophils % (Manual) Seg Neutrophils # Seg Neutrophils # Man Lymphocytes # (Manual) Monocytes # (Manual) Eosinophils # (Manual) Nucleated RBC % Basophils # (Manual) APTT Heparin Anti-Xa Level ABG pH POC ABG pO2 ABG pO2 ABG HCO3 ABG O2 Saturation ABG Base Excess POC ABG pCO2 ABG Hemoglobin ABG Oxyhemoglobin Oxyhemoglobin Sodium Potassium 3.5 L Chloride 107.8 H Carbon Dioxide BUN 37 H Creatinine Glucose 157 H POC Glucose 118 H 148 H Lactic Acid Calcium 8.2 L D Phosphorus Magnesium AST 48 H ALT 60 H Lactate Dehydrogenase 194 H CK-MB (CK-2) C-Reactive Protein 8.50 H NT-Pro-B Natriuret Pep Total Protein 5.5 L Albumin 2.8 L Urine WBC (Auto) 12/01/19 12/02/19 12/02/19 18:04 00:05 05:16 WBC 11.4 H RBC Hgb Hct MCHC RDW 15.9 H MCV MCH Lymph % (Auto) Wright % (Auto) 9.9 H Wright # 1.1 H Eos # Lymph # (Auto) Wright # (Auto) Eos # (Auto) Seg Neutrophils % 70.3 H Seg Neuts % (Manual) Baso # (Auto) Lymphocytes % (Manual) Monocytes % (Manual) Eosinophils % (Manual) Basophils % (Manual) Seg Neutrophils # 8.0 H Seg Neutrophils # Man Lymphocytes # (Manual) Monocytes # (Manual) Eosinophils # (Manual) Nucleated RBC % Basophils # (Manual) APTT Heparin Anti-Xa Level ABG pH POC ABG pO2 ABG pO2 ABG HCO3 ABG O2 Saturation ABG Base Excess POC ABG pCO2 ABG Hemoglobin ABG Oxyhemoglobin Oxyhemoglobin Sodium Potassium Chloride Carbon Dioxide BUN Creatinine Glucose POC Glucose 143 H 107 H Lactic Acid Calcium Phosphorus Magnesium AST ALT Lactate Dehydrogenase CK-MB (CK-2) C-Reactive Protein NT-Pro-B Natriuret Pep Total Protein Albumin Urine WBC (Auto) 12/02/19 12/02/19 12/02/19 05:16 06:03 11:52 WBC RBC Hgb Hct MCHC RDW MCV MCH Lymph % (Auto) Wright % (Auto) Wright # Eos # Lymph # (Auto) Wright # (Auto) Eos # (Auto) Seg Neutrophils % Seg Neuts % (Manual) Baso # (Auto) Lymphocytes % (Manual) Monocytes % (Manual) Eosinophils % (Manual) Basophils % (Manual) Seg Neutrophils # Seg Neutrophils # Man Lymphocytes # (Manual) Monocytes # (Manual) Eosinophils # (Manual) Nucleated RBC % Basophils # (Manual) APTT Heparin Anti-Xa Level ABG pH POC ABG pO2 ABG pO2 ABG HCO3 ABG O2 Saturation ABG Base Excess POC ABG pCO2 ABG Hemoglobin ABG Oxyhemoglobin Oxyhemoglobin Sodium 146 H Potassium Chloride Carbon Dioxide BUN 28 H Creatinine Glucose 123 H POC Glucose 110 H 152 H Lactic Acid Calcium Phosphorus Magnesium AST ALT Lactate Dehydrogenase CK-MB (CK-2) C-Reactive Protein NT-Pro-B Natriuret Pep Total Protein Albumin Urine WBC (Auto) 12/02/19 12/02/19 12/02/19 12:58 17:58 23:36 WBC RBC Hgb Hct MCHC RDW MCV MCH Lymph % (Auto) Wright % (Auto) Wright # Eos # Lymph # (Auto) Wright # (Auto) Eos # (Auto) Seg Neutrophils % Seg Neuts % (Manual) Baso # (Auto) Lymphocytes % (Manual) Monocytes % (Manual) Eosinophils % (Manual) Basophils % (Manual) Seg Neutrophils # Seg Neutrophils # Man Lymphocytes # (Manual) Monocytes # (Manual) Eosinophils # (Manual) Nucleated RBC % Basophils # (Manual) APTT Heparin Anti-Xa Level ABG pH POC ABG pO2 78.1 L ABG pO2 ABG HCO3 ABG O2 Saturation ABG Base Excess POC ABG pCO2 ABG Hemoglobin ABG Oxyhemoglobin Oxyhemoglobin Sodium Potassium Chloride Carbon Dioxide BUN Creatinine Glucose POC Glucose 120 H 123 H Lactic Acid Calcium Phosphorus Magnesium AST ALT Lactate Dehydrogenase CK-MB (CK-2) C-Reactive Protein NT-Pro-B Natriuret Pep Total Protein Albumin Urine WBC (Auto) 12/03/19 12/03/19 12/03/19 06:03 06:14 11:46 WBC RBC Hgb Hct MCHC RDW MCV MCH Lymph % (Auto) Wright % (Auto) Wright # Eos # Lymph # (Auto) Wright # (Auto) Eos # (Auto) Seg Neutrophils % Seg Neuts % (Manual) Baso # (Auto) Lymphocytes % (Manual) Monocytes % (Manual) Eosinophils % (Manual) Basophils % (Manual) Seg Neutrophils # Seg Neutrophils # Man Lymphocytes # (Manual) Monocytes # (Manual) Eosinophils # (Manual) Nucleated RBC % Basophils # (Manual) APTT Heparin Anti-Xa Level ABG pH POC ABG pO2 ABG pO2 ABG HCO3 ABG O2 Saturation ABG Base Excess POC ABG pCO2 ABG Hemoglobin ABG Oxyhemoglobin Oxyhemoglobin Sodium Potassium Chloride Carbon Dioxide BUN Creatinine Glucose POC Glucose 142 H 130 H Lactic Acid Calcium Phosphorus Magnesium AST ALT Lactate Dehydrogenase CK-MB (CK-2) C-Reactive Protein NT-Pro-B Natriuret Pep Total Protein Albumin Urine WBC (Auto) 8.0 H 12/03/19 12/03/19 12/04/19 15:50 17:39 00:04 WBC RBC Hgb Hct MCHC RDW MCV MCH Lymph % (Auto) Wright % (Auto) Wright # Eos # Lymph # (Auto) Wright # (Auto) Eos # (Auto) Seg Neutrophils % Seg Neuts % (Manual) Baso # (Auto) Lymphocytes % (Manual) Monocytes % (Manual) Eosinophils % (Manual) Basophils % (Manual) Seg Neutrophils # Seg Neutrophils # Man Lymphocytes # (Manual) Monocytes # (Manual) Eosinophils # (Manual) Nucleated RBC % Basophils # (Manual) APTT Heparin Anti-Xa Level ABG pH POC ABG pO2 ABG pO2 ABG HCO3 ABG O2 Saturation ABG Base Excess POC ABG pCO2 ABG Hemoglobin ABG Oxyhemoglobin Oxyhemoglobin Sodium Potassium Chloride Carbon Dioxide BUN Creatinine Glucose POC Glucose 146 H 133 H Lactic Acid Calcium Phosphorus 2.40 L Magnesium AST ALT Lactate Dehydrogenase CK-MB (CK-2) C-Reactive Protein NT-Pro-B Natriuret Pep Total Protein Albumin Urine WBC (Auto) 12/04/19 12/04/19 12/04/19 03:58 03:58 05:22 WBC 12.5 H RBC Hgb 11.2 L Hct 35.2 L MCHC RDW 16.0 H MCV MCH Lymph % (Auto) Wright % (Auto) 9.6 H Wright # 1.2 H Eos # 0.5 H Lymph # (Auto) Wright # (Auto) Eos # (Auto) Seg Neutrophils % Seg Neuts % (Manual) Baso # (Auto) Lymphocytes % (Manual) Monocytes % (Manual) Eosinophils % (Manual) Basophils % (Manual) Seg Neutrophils # 8.6 H Seg Neutrophils # Man Lymphocytes # (Manual) Monocytes # (Manual) Eosinophils # (Manual) Nucleated RBC % Basophils # (Manual) APTT Heparin Anti-Xa Level ABG pH POC ABG pO2 ABG pO2 ABG HCO3 ABG O2 Saturation ABG Base Excess POC ABG pCO2 ABG Hemoglobin ABG Oxyhemoglobin Oxyhemoglobin Sodium 146 H Potassium Chloride 108.6 H Carbon Dioxide BUN 30 H Creatinine 0.7 L Glucose 121 H POC Glucose 132 H Lactic Acid Calcium Phosphorus Magnesium AST ALT Lactate Dehydrogenase CK-MB (CK-2) C-Reactive Protein NT-Pro-B Natriuret Pep Total Protein Albumin Urine WBC (Auto) 12/04/19 12/04/19 12/05/19 13:26 18:43 00:19 WBC RBC Hgb Hct MCHC RDW MCV MCH Lymph % (Auto) Wright % (Auto) Wright # Eos # Lymph # (Auto) Wright # (Auto) Eos # (Auto) Seg Neutrophils % Seg Neuts % (Manual) Baso # (Auto) Lymphocytes % (Manual) Monocytes % (Manual) Eosinophils % (Manual) Basophils % (Manual) Seg Neutrophils # Seg Neutrophils # Man Lymphocytes # (Manual) Monocytes # (Manual) Eosinophils # (Manual) Nucleated RBC % Basophils # (Manual) APTT Heparin Anti-Xa Level ABG pH POC ABG pO2 ABG pO2 ABG HCO3 ABG O2 Saturation ABG Base Excess POC ABG pCO2 ABG Hemoglobin ABG Oxyhemoglobin Oxyhemoglobin Sodium Potassium Chloride Carbon Dioxide BUN Creatinine Glucose POC Glucose 185 H 156 H 150 H Lactic Acid Calcium Phosphorus Magnesium AST ALT Lactate Dehydrogenase CK-MB (CK-2) C-Reactive Protein NT-Pro-B Natriuret Pep Total Protein Albumin Urine WBC (Auto) 12/05/19 12/05/19 12/05/19 03:37 03:37 05:14 WBC 16.3 H RBC Hgb 11.4 L Hct MCHC RDW 15.6 H MCV MCH Lymph % (Auto) 9.9 L Wright % (Auto) 9.7 H Wright # 1.6 H Eos # Lymph # (Auto) Wright # (Auto) Eos # (Auto) Seg Neutrophils % 78.0 H Seg Neuts % (Manual) Baso # (Auto) Lymphocytes % (Manual) Monocytes % (Manual) Eosinophils % (Manual) Basophils % (Manual) Seg Neutrophils # 12.7 H Seg Neutrophils # Man Lymphocytes # (Manual) Monocytes # (Manual) Eosinophils # (Manual) Nucleated RBC % Basophils # (Manual) APTT Heparin Anti-Xa Level ABG pH POC ABG pO2 ABG pO2 ABG HCO3 ABG O2 Saturation ABG Base Excess POC ABG pCO2 ABG Hemoglobin ABG Oxyhemoglobin Oxyhemoglobin Sodium 146 H Potassium Chloride 107.2 H Carbon Dioxide BUN 27 H Creatinine 0.7 L Glucose 171 H POC Glucose 168 H Lactic Acid Calcium Phosphorus Magnesium AST ALT Lactate Dehydrogenase CK-MB (CK-2) C-Reactive Protein NT-Pro-B Natriuret Pep Total Protein Albumin Urine WBC (Auto) 12/05/19 12/05/19 12/05/19 12:31 18:10 23:58 WBC RBC Hgb Hct MCHC RDW MCV MCH Lymph % (Auto) Wright % (Auto) Wright # Eos # Lymph # (Auto) Wright # (Auto) Eos # (Auto) Seg Neutrophils % Seg Neuts % (Manual) Baso # (Auto) Lymphocytes % (Manual) Monocytes % (Manual) Eosinophils % (Manual) Basophils % (Manual) Seg Neutrophils # Seg Neutrophils # Man Lymphocytes # (Manual) Monocytes # (Manual) Eosinophils # (Manual) Nucleated RBC % Basophils # (Manual) APTT Heparin Anti-Xa Level ABG pH POC ABG pO2 ABG pO2 ABG HCO3 ABG O2 Saturation ABG Base Excess POC ABG pCO2 ABG Hemoglobin ABG Oxyhemoglobin Oxyhemoglobin Sodium Potassium Chloride Carbon Dioxide BUN Creatinine Glucose POC Glucose 159 H 198 H 115 H Lactic Acid Calcium Phosphorus Magnesium AST ALT Lactate Dehydrogenase CK-MB (CK-2) C-Reactive Protein NT-Pro-B Natriuret Pep Total Protein Albumin Urine WBC (Auto) 12/06/19 12/06/19 12/06/19 05:24 05:24 05:25 WBC 14.9 H RBC Hgb 10.8 L Hct 34.0 L MCHC RDW 15.6 H MCV MCH Lymph % (Auto) 10.7 L Wright % (Auto) 8.3 H Wright # 1.2 H Eos # Lymph # (Auto) Wright # (Auto) Eos # (Auto) Seg Neutrophils % 78.7 H Seg Neuts % (Manual) Baso # (Auto) Lymphocytes % (Manual) Monocytes % (Manual) Eosinophils % (Manual) Basophils % (Manual) Seg Neutrophils # 11.7 H Seg Neutrophils # Man Lymphocytes # (Manual) Monocytes # (Manual) Eosinophils # (Manual) Nucleated RBC % Basophils # (Manual) APTT Heparin Anti-Xa Level ABG pH POC ABG pO2 ABG pO2 ABG HCO3 ABG O2 Saturation ABG Base Excess POC ABG pCO2 ABG Hemoglobin ABG Oxyhemoglobin Oxyhemoglobin Sodium 148 H Potassium 5.1 H Chloride 107.6 H Carbon Dioxide BUN 27 H Creatinine 0.7 L Glucose 155 H POC Glucose 157 H Lactic Acid Calcium Phosphorus Magnesium AST ALT Lactate Dehydrogenase CK-MB (CK-2) C-Reactive Protein NT-Pro-B Natriuret Pep Total Protein Albumin Urine WBC (Auto) 12/07/19 12/07/19 12/07/19 00:13 05:34 11:33 WBC RBC Hgb Hct MCHC RDW MCV MCH Lymph % (Auto) Wright % (Auto) Wright # Eos # Lymph # (Auto) Wright # (Auto) Eos # (Auto) Seg Neutrophils % Seg Neuts % (Manual) Baso # (Auto) Lymphocytes % (Manual) Monocytes % (Manual) Eosinophils % (Manual) Basophils % (Manual) Seg Neutrophils # Seg Neutrophils # Man Lymphocytes # (Manual) Monocytes # (Manual) Eosinophils # (Manual) Nucleated RBC % Basophils # (Manual) APTT Heparin Anti-Xa Level ABG pH POC ABG pO2 ABG pO2 ABG HCO3 ABG O2 Saturation ABG Base Excess POC ABG pCO2 ABG Hemoglobin ABG Oxyhemoglobin Oxyhemoglobin Sodium Potassium Chloride Carbon Dioxide BUN Creatinine Glucose POC Glucose 142 H 111 H 169 H Lactic Acid Calcium Phosphorus Magnesium AST ALT Lactate Dehydrogenase CK-MB (CK-2) C-Reactive Protein NT-Pro-B Natriuret Pep Total Protein Albumin Urine WBC (Auto) 12/07/19 12/07/19 12/07/19 12:41 13:25 18:19 WBC 12.4 H RBC 3.53 L Hgb 10.2 L Hct 32.1 L MCHC RDW 15.3 H MCV MCH Lymph % (Auto) 10.6 L Wright % (Auto) 7.8 H Wright # 1.0 H Eos # Lymph # (Auto) Wright # (Auto) Eos # (Auto) Seg Neutrophils % 77.6 H Seg Neuts % (Manual) Baso # (Auto) Lymphocytes % (Manual) Monocytes % (Manual) Eosinophils % (Manual) Basophils % (Manual) Seg Neutrophils # 9.6 H Seg Neutrophils # Man Lymphocytes # (Manual) Monocytes # (Manual) Eosinophils # (Manual) Nucleated RBC % Basophils # (Manual) APTT Heparin Anti-Xa Level ABG pH POC ABG pO2 ABG pO2 ABG HCO3 ABG O2 Saturation ABG Base Excess POC ABG pCO2 ABG Hemoglobin ABG Oxyhemoglobin Oxyhemoglobin Sodium 149 H Potassium Chloride 108.4 H Carbon Dioxide BUN 26 H Creatinine 0.6 L Glucose 149 H POC Glucose 164 H Lactic Acid Calcium Phosphorus Magnesium 2.60 H AST 121 H ALT 145 H Lactate Dehydrogenase CK-MB (CK-2) C-Reactive Protein NT-Pro-B Natriuret Pep Total Protein Albumin 2.6 L Urine WBC (Auto) 12/07/19 12/08/19 12/08/19 22:25 00:02 03:55 WBC 13.3 H RBC 3.40 L Hgb 9.7 L Hct 30.8 L MCHC 31 L RDW 15.5 H MCV MCH Lymph % (Auto) Wright % (Auto) 8.1 H Wright # 1.1 H Eos # Lymph # (Auto) Wright # (Auto) Eos # (Auto) Seg Neutrophils % 73.0 H Seg Neuts % (Manual) Baso # (Auto) Lymphocytes % (Manual) Monocytes % (Manual) Eosinophils % (Manual) Basophils % (Manual) Seg Neutrophils # 9.7 H Seg Neutrophils # Man Lymphocytes # (Manual) Monocytes # (Manual) Eosinophils # (Manual) Nucleated RBC % Basophils # (Manual) APTT Heparin Anti-Xa Level 0.12 L ABG pH POC ABG pO2 ABG pO2 ABG HCO3 ABG O2 Saturation ABG Base Excess POC ABG pCO2 ABG Hemoglobin ABG Oxyhemoglobin Oxyhemoglobin Sodium Potassium Chloride Carbon Dioxide BUN Creatinine Glucose POC Glucose 151 H Lactic Acid Calcium Phosphorus Magnesium AST ALT Lactate Dehydrogenase CK-MB (CK-2) C-Reactive Protein NT-Pro-B Natriuret Pep Total Protein Albumin Urine WBC (Auto) 12/08/19 12/08/19 12/08/19 03:55 05:21 06:01 WBC RBC Hgb Hct MCHC RDW MCV MCH Lymph % (Auto) Wright % (Auto) Wright # Eos # Lymph # (Auto) Wright # (Auto) Eos # (Auto) Seg Neutrophils % Seg Neuts % (Manual) Baso # (Auto) Lymphocytes % (Manual) Monocytes % (Manual) Eosinophils % (Manual) Basophils % (Manual) Seg Neutrophils # Seg Neutrophils # Man Lymphocytes # (Manual) Monocytes # (Manual) Eosinophils # (Manual) Nucleated RBC % Basophils # (Manual) APTT Heparin Anti-Xa Level 0.20 L ABG pH POC ABG pO2 ABG pO2 ABG HCO3 ABG O2 Saturation ABG Base Excess POC ABG pCO2 ABG Hemoglobin ABG Oxyhemoglobin Oxyhemoglobin Sodium 149 H Potassium Chloride 108.0 H Carbon Dioxide BUN 28 H Creatinine 0.6 L Glucose 144 H POC Glucose 143 H Lactic Acid Calcium Phosphorus Magnesium AST 98 H ALT 145 H Lactate Dehydrogenase CK-MB (CK-2) C-Reactive Protein NT-Pro-B Natriuret Pep Total Protein 6.0 L Albumin 2.4 L Urine WBC (Auto) 12/08/19 12/08/19 12/08/19 12:08 18:11 23:53 WBC RBC Hgb Hct MCHC RDW MCV MCH Lymph % (Auto) Wright % (Auto) Wright # Eos # Lymph # (Auto) Wright # (Auto) Eos # (Auto) Seg Neutrophils % Seg Neuts % (Manual) Baso # (Auto) Lymphocytes % (Manual) Monocytes % (Manual) Eosinophils % (Manual) Basophils % (Manual) Seg Neutrophils # Seg Neutrophils # Man Lymphocytes # (Manual) Monocytes # (Manual) Eosinophils # (Manual) Nucleated RBC % Basophils # (Manual) APTT Heparin Anti-Xa Level ABG pH POC ABG pO2 ABG pO2 ABG HCO3 ABG O2 Saturation ABG Base Excess POC ABG pCO2 ABG Hemoglobin ABG Oxyhemoglobin Oxyhemoglobin Sodium Potassium Chloride Carbon Dioxide BUN Creatinine Glucose POC Glucose 172 H 122 H 162 H Lactic Acid Calcium Phosphorus Magnesium AST ALT Lactate Dehydrogenase CK-MB (CK-2) C-Reactive Protein NT-Pro-B Natriuret Pep Total Protein Albumin Urine WBC (Auto) 12/09/19 12/09/19 12/09/19 04:03 04:03 05:53 WBC RBC Hgb 9.1 L Hct 28.9 L MCHC RDW MCV MCH Lymph % (Auto) Wright % (Auto) Wright # Eos # Lymph # (Auto) Wright # (Auto) Eos # (Auto) Seg Neutrophils % Seg Neuts % (Manual) Baso # (Auto) Lymphocytes % (Manual) Monocytes % (Manual) Eosinophils % (Manual) Basophils % (Manual) Seg Neutrophils # Seg Neutrophils # Man Lymphocytes # (Manual) Monocytes # (Manual) Eosinophils # (Manual) Nucleated RBC % Basophils # (Manual) APTT Heparin Anti-Xa Level 0.15 L ABG pH POC ABG pO2 ABG pO2 ABG HCO3 ABG O2 Saturation ABG Base Excess POC ABG pCO2 ABG Hemoglobin ABG Oxyhemoglobin Oxyhemoglobin Sodium Potassium Chloride Carbon Dioxide BUN Creatinine Glucose POC Glucose 124 H Lactic Acid Calcium Phosphorus Magnesium AST ALT Lactate Dehydrogenase CK-MB (CK-2) C-Reactive Protein NT-Pro-B Natriuret Pep Total Protein Albumin Urine WBC (Auto) 12/09/19 12/09/19 12/10/19 09:43 12:41 00:13 WBC RBC Hgb Hct MCHC RDW MCV MCH Lymph % (Auto) Wright % (Auto) Wright # Eos # Lymph # (Auto) Wright # (Auto) Eos # (Auto) Seg Neutrophils % Seg Neuts % (Manual) Baso # (Auto) Lymphocytes % (Manual) Monocytes % (Manual) Eosinophils % (Manual) Basophils % (Manual) Seg Neutrophils # Seg Neutrophils # Man Lymphocytes # (Manual) Monocytes # (Manual) Eosinophils # (Manual) Nucleated RBC % Basophils # (Manual) APTT Heparin Anti-Xa Level ABG pH POC ABG pO2 ABG pO2 ABG HCO3 ABG O2 Saturation ABG Base Excess POC ABG pCO2 ABG Hemoglobin ABG Oxyhemoglobin Oxyhemoglobin Sodium Potassium Chloride Carbon Dioxide BUN 25 H Creatinine 0.6 L Glucose 131 H POC Glucose 109 H 120 H Lactic Acid Calcium Phosphorus Magnesium AST ALT Lactate Dehydrogenase CK-MB (CK-2) C-Reactive Protein NT-Pro-B Natriuret Pep Total Protein Albumin Urine WBC (Auto) 12/10/19 12/10/19 12/10/19 04:14 04:14 12:00 WBC 13.3 H RBC 3.34 L Hgb 9.6 L Hct 30.4 L MCHC RDW 15.4 H MCV MCH Lymph % (Auto) Wright % (Auto) Wright # Eos # Lymph # (Auto) Wright # (Auto) Eos # (Auto) Seg Neutrophils % Seg Neuts % (Manual) 75.0 H Baso # (Auto) Lymphocytes % (Manual) 13.0 L Monocytes % (Manual) 8.0 H Eosinophils % (Manual) Basophils % (Manual) 2.0 H Seg Neutrophils # Seg Neutrophils # Man 10.0 H Lymphocytes # (Manual) Monocytes # (Manual) 1.1 H Eosinophils # (Manual) Nucleated RBC % Basophils # (Manual) 0.3 H APTT Heparin Anti-Xa Level ABG pH POC ABG pO2 ABG pO2 ABG HCO3 ABG O2 Saturation ABG Base Excess POC ABG pCO2 ABG Hemoglobin ABG Oxyhemoglobin Oxyhemoglobin Sodium 147 H Potassium Chloride 108.3 H Carbon Dioxide BUN 21 H Creatinine 0.6 L Glucose 104 H POC Glucose 133 H Lactic Acid Calcium Phosphorus Magnesium AST ALT Lactate Dehydrogenase CK-MB (CK-2) C-Reactive Protein NT-Pro-B Natriuret Pep Total Protein Albumin Urine WBC (Auto) 12/10/19 12/10/19 12/11/19 18:44 21:20 00:08 WBC 14.9 H RBC 3.36 L Hgb 9.6 L Hct 30.5 L MCHC RDW 15.4 H MCV MCH Lymph % (Auto) Wright % (Auto) Wright # Eos # Lymph # (Auto) Wright # (Auto) Eos # (Auto) Seg Neutrophils % Seg Neuts % (Manual) Baso # (Auto) Lymphocytes % (Manual) Monocytes % (Manual) Eosinophils % (Manual) Basophils % (Manual) Seg Neutrophils # Seg Neutrophils # Man Lymphocytes # (Manual) Monocytes # (Manual) Eosinophils # (Manual) Nucleated RBC % Basophils # (Manual) APTT Heparin Anti-Xa Level ABG pH POC ABG pO2 ABG pO2 ABG HCO3 ABG O2 Saturation ABG Base Excess POC ABG pCO2 ABG Hemoglobin ABG Oxyhemoglobin Oxyhemoglobin Sodium Potassium Chloride Carbon Dioxide BUN Creatinine Glucose POC Glucose 119 H 134 H Lactic Acid Calcium Phosphorus Magnesium AST ALT Lactate Dehydrogenase CK-MB (CK-2) C-Reactive Protein NT-Pro-B Natriuret Pep Total Protein Albumin Urine WBC (Auto) 12/11/19 12/11/19 12/11/19 03:54 07:28 08:36 WBC 11.9 H RBC 3.25 L Hgb 9.6 L Hct 29.2 L MCHC RDW 15.7 H MCV MCH Lymph % (Auto) Wright % (Auto) Wright # Eos # Lymph # (Auto) Wright # (Auto) Eos # (Auto) Seg Neutrophils % Seg Neuts % (Manual) Baso # (Auto) Lymphocytes % (Manual) Monocytes % (Manual) Eosinophils % (Manual) Basophils % (Manual) Seg Neutrophils # Seg Neutrophils # Man Lymphocytes # (Manual) Monocytes # (Manual) Eosinophils # (Manual) Nucleated RBC % Basophils # (Manual) APTT Heparin Anti-Xa Level 0.10 L 0.16 L ABG pH POC ABG pO2 ABG pO2 ABG HCO3 ABG O2 Saturation ABG Base Excess POC ABG pCO2 ABG Hemoglobin ABG Oxyhemoglobin Oxyhemoglobin Sodium Potassium Chloride Carbon Dioxide BUN Creatinine Glucose POC Glucose Lactic Acid Calcium Phosphorus Magnesium AST ALT Lactate Dehydrogenase CK-MB (CK-2) C-Reactive Protein NT-Pro-B Natriuret Pep Total Protein Albumin Urine WBC (Auto) 12/11/19 12/11/19 12/11/19 08:36 11:45 17:15 WBC RBC Hgb Hct MCHC RDW MCV MCH Lymph % (Auto) Wright % (Auto) Wright # Eos # Lymph # (Auto) Wright # (Auto) Eos # (Auto) Seg Neutrophils % Seg Neuts % (Manual) Baso # (Auto) Lymphocytes % (Manual) Monocytes % (Manual) Eosinophils % (Manual) Basophils % (Manual) Seg Neutrophils # Seg Neutrophils # Man Lymphocytes # (Manual) Monocytes # (Manual) Eosinophils # (Manual) Nucleated RBC % Basophils # (Manual) APTT Heparin Anti-Xa Level ABG pH POC ABG pO2 ABG pO2 ABG HCO3 ABG O2 Saturation ABG Base Excess POC ABG pCO2 ABG Hemoglobin ABG Oxyhemoglobin Oxyhemoglobin Sodium Potassium Chloride Carbon Dioxide BUN Creatinine 0.5 L Glucose 128 H POC Glucose 136 H 109 H Lactic Acid Calcium Phosphorus Magnesium AST ALT Lactate Dehydrogenase CK-MB (CK-2) C-Reactive Protein NT-Pro-B Natriuret Pep Total Protein Albumin Urine WBC (Auto) 12/12/19 12/12/19 12/12/19 00:03 05:53 05:53 WBC RBC Hgb 8.8 L Hct 27.6 L MCHC RDW MCV MCH Lymph % (Auto) Wright % (Auto) Wright # Eos # Lymph # (Auto) Wright # (Auto) Eos # (Auto) Seg Neutrophils % Seg Neuts % (Manual) Baso # (Auto) Lymphocytes % (Manual) Monocytes % (Manual) Eosinophils % (Manual) Basophils % (Manual) Seg Neutrophils # Seg Neutrophils # Man Lymphocytes # (Manual) Monocytes # (Manual) Eosinophils # (Manual) Nucleated RBC % Basophils # (Manual) APTT Heparin Anti-Xa Level 0.22 L ABG pH POC ABG pO2 ABG pO2 ABG HCO3 ABG O2 Saturation ABG Base Excess POC ABG pCO2 ABG Hemoglobin ABG Oxyhemoglobin Oxyhemoglobin Sodium Potassium Chloride Carbon Dioxide BUN Creatinine Glucose POC Glucose 116 H Lactic Acid Calcium Phosphorus Magnesium AST ALT Lactate Dehydrogenase CK-MB (CK-2) C-Reactive Protein NT-Pro-B Natriuret Pep Total Protein Albumin Urine WBC (Auto) 12/12/19 12/12/19 12/12/19 09:38 12:18 17:44 WBC RBC Hgb Hct MCHC RDW MCV MCH Lymph % (Auto) Wright % (Auto) Wright # Eos # Lymph # (Auto) Wright # (Auto) Eos # (Auto) Seg Neutrophils % Seg Neuts % (Manual) Baso # (Auto) Lymphocytes % (Manual) Monocytes % (Manual) Eosinophils % (Manual) Basophils % (Manual) Seg Neutrophils # Seg Neutrophils # Man Lymphocytes # (Manual) Monocytes # (Manual) Eosinophils # (Manual) Nucleated RBC % Basophils # (Manual) APTT Heparin Anti-Xa Level ABG pH POC ABG pO2 ABG pO2 ABG HCO3 ABG O2 Saturation ABG Base Excess POC ABG pCO2 ABG Hemoglobin ABG Oxyhemoglobin Oxyhemoglobin Sodium Potassium Chloride Carbon Dioxide BUN Creatinine Glucose POC Glucose 115 H 146 H 146 H Lactic Acid Calcium Phosphorus Magnesium AST ALT Lactate Dehydrogenase CK-MB (CK-2) C-Reactive Protein NT-Pro-B Natriuret Pep Total Protein Albumin Urine WBC (Auto) 12/12/19 12/13/19 12/13/19 23:33 05:32 05:32 WBC 13.1 H RBC 3.27 L Hgb 9.5 L Hct 29.3 L MCHC RDW 15.6 H MCV MCH Lymph % (Auto) Wright % (Auto) Wright # Eos # Lymph # (Auto) Wright # (Auto) Eos # (Auto) Seg Neutrophils % Seg Neuts % (Manual) 74.0 H Baso # (Auto) Lymphocytes % (Manual) 8.0 L Monocytes % (Manual) 9.0 H Eosinophils % (Manual) 5.0 H Basophils % (Manual) Seg Neutrophils # Seg Neutrophils # Man 9.7 H Lymphocytes # (Manual) 1.0 L Monocytes # (Manual) 1.2 H Eosinophils # (Manual) 0.7 H Nucleated RBC % Basophils # (Manual) APTT Heparin Anti-Xa Level 0.20 L ABG pH POC ABG pO2 ABG pO2 ABG HCO3 ABG O2 Saturation ABG Base Excess POC ABG pCO2 ABG Hemoglobin ABG Oxyhemoglobin Oxyhemoglobin Sodium Potassium Chloride Carbon Dioxide BUN Creatinine Glucose POC Glucose 126 H Lactic Acid Calcium Phosphorus Magnesium AST ALT Lactate Dehydrogenase CK-MB (CK-2) C-Reactive Protein NT-Pro-B Natriuret Pep Total Protein Albumin Urine WBC (Auto) 12/13/19 12/13/19 12/13/19 05:32 05:46 11:57 WBC RBC Hgb Hct MCHC RDW MCV MCH Lymph % (Auto) Wright % (Auto) Wright # Eos # Lymph # (Auto) Wright # (Auto) Eos # (Auto) Seg Neutrophils % Seg Neuts % (Manual) Baso # (Auto) Lymphocytes % (Manual) Monocytes % (Manual) Eosinophils % (Manual) Basophils % (Manual) Seg Neutrophils # Seg Neutrophils # Man Lymphocytes # (Manual) Monocytes # (Manual) Eosinophils # (Manual) Nucleated RBC % Basophils # (Manual) APTT Heparin Anti-Xa Level ABG pH POC ABG pO2 ABG pO2 ABG HCO3 ABG O2 Saturation ABG Base Excess POC ABG pCO2 ABG Hemoglobin ABG Oxyhemoglobin Oxyhemoglobin Sodium Potassium Chloride Carbon Dioxide 31 H BUN Creatinine 0.6 L Glucose 114 H POC Glucose 118 H 133 H Lactic Acid Calcium Phosphorus Magnesium AST ALT Lactate Dehydrogenase CK-MB (CK-2) C-Reactive Protein NT-Pro-B Natriuret Pep Total Protein Albumin Urine WBC (Auto) 12/13/19 12/13/19 12/14/19 17:44 23:46 05:32 WBC RBC Hgb Hct MCHC RDW MCV MCH Lymph % (Auto) Wright % (Auto) Wright # Eos # Lymph # (Auto) Wright # (Auto) Eos # (Auto) Seg Neutrophils % Seg Neuts % (Manual) Baso # (Auto) Lymphocytes % (Manual) Monocytes % (Manual) Eosinophils % (Manual) Basophils % (Manual) Seg Neutrophils # Seg Neutrophils # Man Lymphocytes # (Manual) Monocytes # (Manual) Eosinophils # (Manual) Nucleated RBC % Basophils # (Manual) APTT Heparin Anti-Xa Level ABG pH POC ABG pO2 ABG pO2 ABG HCO3 ABG O2 Saturation ABG Base Excess POC ABG pCO2 ABG Hemoglobin ABG Oxyhemoglobin Oxyhemoglobin Sodium Potassium Chloride Carbon Dioxide BUN Creatinine Glucose POC Glucose 161 H 126 H 139 H Lactic Acid Calcium Phosphorus Magnesium AST ALT Lactate Dehydrogenase CK-MB (CK-2) C-Reactive Protein NT-Pro-B Natriuret Pep Total Protein Albumin Urine WBC (Auto) 12/14/19 12/14/19 12/14/19 06:03 06:03 09:37 WBC RBC Hgb 9.6 L Hct 30.4 L MCHC RDW MCV MCH Lymph % (Auto) Wright % (Auto) Wright # Eos # Lymph # (Auto) Wright # (Auto) Eos # (Auto) Seg Neutrophils % Seg Neuts % (Manual) Baso # (Auto) Lymphocytes % (Manual) Monocytes % (Manual) Eosinophils % (Manual) Basophils % (Manual) Seg Neutrophils # Seg Neutrophils # Man Lymphocytes # (Manual) Monocytes # (Manual) Eosinophils # (Manual) Nucleated RBC % Basophils # (Manual) APTT Heparin Anti-Xa Level 0.24 L ABG pH POC ABG pO2 ABG pO2 ABG HCO3 ABG O2 Saturation ABG Base Excess POC ABG pCO2 ABG Hemoglobin ABG Oxyhemoglobin Oxyhemoglobin Sodium Potassium Chloride Carbon Dioxide BUN Creatinine 0.6 L Glucose 162 H POC Glucose Lactic Acid Calcium Phosphorus Magnesium AST 71 H ALT 118 H Lactate Dehydrogenase CK-MB (CK-2) C-Reactive Protein NT-Pro-B Natriuret Pep Total Protein 6.2 L Albumin 2.3 L Urine WBC (Auto) 12/14/19 12/14/19 12/15/19 12:06 18:18 00:19 WBC RBC Hgb Hct MCHC RDW MCV MCH Lymph % (Auto) Wright % (Auto) Wright # Eos # Lymph # (Auto) Wright # (Auto) Eos # (Auto) Seg Neutrophils % Seg Neuts % (Manual) Baso # (Auto) Lymphocytes % (Manual) Monocytes % (Manual) Eosinophils % (Manual) Basophils % (Manual) Seg Neutrophils # Seg Neutrophils # Man Lymphocytes # (Manual) Monocytes # (Manual) Eosinophils # (Manual) Nucleated RBC % Basophils # (Manual) APTT Heparin Anti-Xa Level ABG pH POC ABG pO2 ABG pO2 ABG HCO3 ABG O2 Saturation ABG Base Excess POC ABG pCO2 ABG Hemoglobin ABG Oxyhemoglobin Oxyhemoglobin Sodium Potassium Chloride Carbon Dioxide BUN Creatinine Glucose POC Glucose 147 H 166 H 123 H Lactic Acid Calcium Phosphorus Magnesium AST ALT Lactate Dehydrogenase CK-MB (CK-2) C-Reactive Protein NT-Pro-B Natriuret Pep Total Protein Albumin Urine WBC (Auto) 12/15/19 12/15/19 12/15/19 05:28 05:29 05:29 WBC 14.9 H RBC 3.19 L Hgb 9.1 L Hct 28.7 L MCHC RDW 16.0 H MCV MCH Lymph % (Auto) Wright % (Auto) Wright # Eos # Lymph # (Auto) Wright # (Auto) Eos # (Auto) Seg Neutrophils % Seg Neuts % (Manual) Baso # (Auto) Lymphocytes % (Manual) Monocytes % (Manual) Eosinophils % (Manual) Basophils % (Manual) Seg Neutrophils # Seg Neutrophils # Man Lymphocytes # (Manual) Monocytes # (Manual) Eosinophils # (Manual) Nucleated RBC % Basophils # (Manual) APTT Heparin Anti-Xa Level 0.19 L ABG pH POC ABG pO2 ABG pO2 ABG HCO3 ABG O2 Saturation ABG Base Excess POC ABG pCO2 ABG Hemoglobin ABG Oxyhemoglobin Oxyhemoglobin Sodium Potassium Chloride Carbon Dioxide BUN Creatinine 0.6 L Glucose 110 H POC Glucose Lactic Acid Calcium Phosphorus Magnesium AST ALT Lactate Dehydrogenase CK-MB (CK-2) C-Reactive Protein NT-Pro-B Natriuret Pep Total Protein Albumin Urine WBC (Auto) 12/15/19 12/15/19 12/15/19 05:53 11:50 17:26 WBC RBC Hgb Hct MCHC RDW MCV MCH Lymph % (Auto) Wright % (Auto) Wright # Eos # Lymph # (Auto) Wright # (Auto) Eos # (Auto) Seg Neutrophils % Seg Neuts % (Manual) Baso # (Auto) Lymphocytes % (Manual) Monocytes % (Manual) Eosinophils % (Manual) Basophils % (Manual) Seg Neutrophils # Seg Neutrophils # Man Lymphocytes # (Manual) Monocytes # (Manual) Eosinophils # (Manual) Nucleated RBC % Basophils # (Manual) APTT Heparin Anti-Xa Level ABG pH POC ABG pO2 ABG pO2 ABG HCO3 ABG O2 Saturation ABG Base Excess POC ABG pCO2 ABG Hemoglobin ABG Oxyhemoglobin Oxyhemoglobin Sodium Potassium Chloride Carbon Dioxide BUN Creatinine Glucose POC Glucose 119 H 132 H 128 H Lactic Acid Calcium Phosphorus Magnesium AST ALT Lactate Dehydrogenase CK-MB (CK-2) C-Reactive Protein NT-Pro-B Natriuret Pep Total Protein Albumin Urine WBC (Auto) 12/15/19 12/16/19 12/16/19 23:11 05:30 05:46 WBC RBC Hgb 8.8 L Hct 27.9 L MCHC RDW MCV MCH Lymph % (Auto) Wright % (Auto) Wright # Eos # Lymph # (Auto) Wright # (Auto) Eos # (Auto) Seg Neutrophils % Seg Neuts % (Manual) Baso # (Auto) Lymphocytes % (Manual) Monocytes % (Manual) Eosinophils % (Manual) Basophils % (Manual) Seg Neutrophils # Seg Neutrophils # Man Lymphocytes # (Manual) Monocytes # (Manual) Eosinophils # (Manual) Nucleated RBC % Basophils # (Manual) APTT Heparin Anti-Xa Level ABG pH POC ABG pO2 ABG pO2 ABG HCO3 ABG O2 Saturation ABG Base Excess POC ABG pCO2 ABG Hemoglobin ABG Oxyhemoglobin Oxyhemoglobin Sodium Potassium Chloride Carbon Dioxide BUN Creatinine Glucose POC Glucose 150 H 134 H Lactic Acid Calcium Phosphorus Magnesium AST ALT Lactate Dehydrogenase CK-MB (CK-2) C-Reactive Protein NT-Pro-B Natriuret Pep Total Protein Albumin Urine WBC (Auto) 12/16/19 12/16/19 12/16/19 05:46 05:46 11:44 WBC RBC Hgb Hct MCHC RDW MCV MCH Lymph % (Auto) Wright % (Auto) Wright # Eos # Lymph # (Auto) Wright # (Auto) Eos # (Auto) Seg Neutrophils % Seg Neuts % (Manual) Baso # (Auto) Lymphocytes % (Manual) Monocytes % (Manual) Eosinophils % (Manual) Basophils % (Manual) Seg Neutrophils # Seg Neutrophils # Man Lymphocytes # (Manual) Monocytes # (Manual) Eosinophils # (Manual) Nucleated RBC % Basophils # (Manual) APTT Heparin Anti-Xa Level 0.20 L ABG pH POC ABG pO2 ABG pO2 ABG HCO3 ABG O2 Saturation ABG Base Excess POC ABG pCO2 ABG Hemoglobin ABG Oxyhemoglobin Oxyhemoglobin Sodium Potassium Chloride Carbon Dioxide 31 H BUN Creatinine 0.5 L Glucose 147 H POC Glucose 164 H Lactic Acid Calcium Phosphorus Magnesium AST ALT Lactate Dehydrogenase CK-MB (CK-2) C-Reactive Protein NT-Pro-B Natriuret Pep Total Protein Albumin Urine WBC (Auto) 12/16/19 12/16/19 12/17/19 17:17 23:49 05:30 WBC 13.9 H RBC 3.27 L Hgb 9.4 L Hct 29.2 L MCHC RDW 16.0 H MCV MCH Lymph % (Auto) Wright % (Auto) 8.8 H Wright # Eos # Lymph # (Auto) Wright # (Auto) 1.2 H Eos # (Auto) 0.5 H Seg Neutrophils % 70.5 H Seg Neuts % (Manual) Baso # (Auto) 0.2 H Lymphocytes % (Manual) Monocytes % (Manual) Eosinophils % (Manual) Basophils % (Manual) Seg Neutrophils # 9.8 H Seg Neutrophils # Man Lymphocytes # (Manual) Monocytes # (Manual) Eosinophils # (Manual) Nucleated RBC % Basophils # (Manual) APTT Heparin Anti-Xa Level ABG pH POC ABG pO2 ABG pO2 ABG HCO3 ABG O2 Saturation ABG Base Excess POC ABG pCO2 ABG Hemoglobin ABG Oxyhemoglobin Oxyhemoglobin Sodium Potassium Chloride Carbon Dioxide BUN Creatinine Glucose POC Glucose 162 H 144 H Lactic Acid Calcium Phosphorus Magnesium AST ALT Lactate Dehydrogenase CK-MB (CK-2) C-Reactive Protein NT-Pro-B Natriuret Pep Total Protein Albumin Urine WBC (Auto) 12/17/19 12/17/19 12/17/19 05:30 06:06 11:50 WBC RBC Hgb Hct MCHC RDW MCV MCH Lymph % (Auto) Wright % (Auto) Wright # Eos # Lymph # (Auto) Wright # (Auto) Eos # (Auto) Seg Neutrophils % Seg Neuts % (Manual) Baso # (Auto) Lymphocytes % (Manual) Monocytes % (Manual) Eosinophils % (Manual) Basophils % (Manual) Seg Neutrophils # Seg Neutrophils # Man Lymphocytes # (Manual) Monocytes # (Manual) Eosinophils # (Manual) Nucleated RBC % Basophils # (Manual) APTT Heparin Anti-Xa Level ABG pH POC ABG pO2 ABG pO2 ABG HCO3 ABG O2 Saturation ABG Base Excess POC ABG pCO2 ABG Hemoglobin ABG Oxyhemoglobin Oxyhemoglobin Sodium Potassium Chloride 97.4 L Carbon Dioxide 32 H BUN Creatinine 0.5 L Glucose 135 H POC Glucose 151 H 140 H Lactic Acid Calcium Phosphorus Magnesium AST ALT Lactate Dehydrogenase CK-MB (CK-2) C-Reactive Protein NT-Pro-B Natriuret Pep Total Protein Albumin Urine WBC (Auto) 12/17/19 12/17/19 12/18/19 17:50 23:46 05:17 WBC RBC Hgb 8.8 L Hct 28.0 L MCHC RDW MCV MCH Lymph % (Auto) Wright % (Auto) Wright # Eos # Lymph # (Auto) Wright # (Auto) Eos # (Auto) Seg Neutrophils % Seg Neuts % (Manual) Baso # (Auto) Lymphocytes % (Manual) Monocytes % (Manual) Eosinophils % (Manual) Basophils % (Manual) Seg Neutrophils # Seg Neutrophils # Man Lymphocytes # (Manual) Monocytes # (Manual) Eosinophils # (Manual) Nucleated RBC % Basophils # (Manual) APTT Heparin Anti-Xa Level ABG pH POC ABG pO2 ABG pO2 ABG HCO3 ABG O2 Saturation ABG Base Excess POC ABG pCO2 ABG Hemoglobin ABG Oxyhemoglobin Oxyhemoglobin Sodium Potassium Chloride Carbon Dioxide BUN Creatinine Glucose POC Glucose 158 H 150 H Lactic Acid Calcium Phosphorus Magnesium AST ALT Lactate Dehydrogenase CK-MB (CK-2) C-Reactive Protein NT-Pro-B Natriuret Pep Total Protein Albumin Urine WBC (Auto) 12/18/19 12/18/19 12/18/19 05:17 05:49 11:12 WBC RBC Hgb Hct MCHC RDW MCV MCH Lymph % (Auto) Wright % (Auto) Wright # Eos # Lymph # (Auto) Wright # (Auto) Eos # (Auto) Seg Neutrophils % Seg Neuts % (Manual) Baso # (Auto) Lymphocytes % (Manual) Monocytes % (Manual) Eosinophils % (Manual) Basophils % (Manual) Seg Neutrophils # Seg Neutrophils # Man Lymphocytes # (Manual) Monocytes # (Manual) Eosinophils # (Manual) Nucleated RBC % Basophils # (Manual) APTT Heparin Anti-Xa Level 0.16 L ABG pH POC ABG pO2 ABG pO2 ABG HCO3 ABG O2 Saturation ABG Base Excess POC ABG pCO2 ABG Hemoglobin ABG Oxyhemoglobin Oxyhemoglobin Sodium Potassium Chloride Carbon Dioxide BUN Creatinine Glucose POC Glucose 127 H 191 H Lactic Acid Calcium Phosphorus Magnesium AST ALT Lactate Dehydrogenase CK-MB (CK-2) C-Reactive Protein NT-Pro-B Natriuret Pep Total Protein Albumin Urine WBC (Auto) 12/18/19 12/18/19 12/19/19 17:03 20:16 00:08 WBC RBC Hgb Hct MCHC RDW MCV MCH Lymph % (Auto) Wright % (Auto) Wright # Eos # Lymph # (Auto) Wright # (Auto) Eos # (Auto) Seg Neutrophils % Seg Neuts % (Manual) Baso # (Auto) Lymphocytes % (Manual) Monocytes % (Manual) Eosinophils % (Manual) Basophils % (Manual) Seg Neutrophils # Seg Neutrophils # Man Lymphocytes # (Manual) Monocytes # (Manual) Eosinophils # (Manual) Nucleated RBC % Basophils # (Manual) APTT Heparin Anti-Xa Level ABG pH POC ABG pO2 ABG pO2 ABG HCO3 ABG O2 Saturation ABG Base Excess POC ABG pCO2 ABG Hemoglobin ABG Oxyhemoglobin Oxyhemoglobin Sodium Potassium Chloride Carbon Dioxide BUN Creatinine Glucose POC Glucose 133 H 128 H 129 H Lactic Acid Calcium Phosphorus Magnesium AST ALT Lactate Dehydrogenase CK-MB (CK-2) C-Reactive Protein NT-Pro-B Natriuret Pep Total Protein Albumin Urine WBC (Auto) 12/19/19 12/19/19 12/19/19 04:45 04:45 05:35 WBC RBC Hgb Hct MCHC RDW MCV MCH Lymph % (Auto) Wright % (Auto) Wright # Eos # Lymph # (Auto) Wright # (Auto) Eos # (Auto) Seg Neutrophils % Seg Neuts % (Manual) Baso # (Auto) Lymphocytes % (Manual) Monocytes % (Manual) Eosinophils % (Manual) Basophils % (Manual) Seg Neutrophils # Seg Neutrophils # Man Lymphocytes # (Manual) Monocytes # (Manual) Eosinophils # (Manual) Nucleated RBC % Basophils # (Manual) APTT Heparin Anti-Xa Level 0.17 L ABG pH POC ABG pO2 ABG pO2 ABG HCO3 ABG O2 Saturation ABG Base Excess POC ABG pCO2 ABG Hemoglobin ABG Oxyhemoglobin Oxyhemoglobin Sodium Potassium Chloride Carbon Dioxide BUN Creatinine Glucose POC Glucose 120 H Lactic Acid Calcium Phosphorus Magnesium AST ALT Lactate Dehydrogenase 228 H CK-MB (CK-2) C-Reactive Protein NT-Pro-B Natriuret Pep Total Protein Albumin Urine WBC (Auto) 12/19/19 12/19/19 12/19/19 09:20 11:32 11:32 WBC 14.6 H RBC 3.08 L Hgb 9.0 L Hct 26.8 L MCHC RDW 15.9 H MCV MCH Lymph % (Auto) Wright % (Auto) Wright # Eos # Lymph # (Auto) Wright # (Auto) Eos # (Auto) Seg Neutrophils % Seg Neuts % (Manual) 82.0 H Baso # (Auto) Lymphocytes % (Manual) 10.0 L Monocytes % (Manual) Eosinophils % (Manual) Basophils % (Manual) Seg Neutrophils # Seg Neutrophils # Man 12.0 H Lymphocytes # (Manual) Monocytes # (Manual) 0.9 H Eosinophils # (Manual) Nucleated RBC % 1.0 H Basophils # (Manual) APTT Heparin Anti-Xa Level ABG pH 7.451 H POC ABG pO2 ABG pO2 62.6 L ABG HCO3 33.2 H ABG O2 Saturation 93.8 L ABG Base Excess 8.3 H POC ABG pCO2 ABG Hemoglobin 8.3 L ABG Oxyhemoglobin Oxyhemoglobin 91.9 L Sodium Potassium Chloride 95.0 L Carbon Dioxide 33 H BUN 22 H Creatinine 0.6 L Glucose 150 H POC Glucose Lactic Acid Calcium Phosphorus Magnesium AST ALT Lactate Dehydrogenase CK-MB (CK-2) C-Reactive Protein NT-Pro-B Natriuret Pep Total Protein 6.2 L Albumin 2.4 L Urine WBC (Auto) 12/19/19 12/19/19 12/20/19 11:56 18:17 00:09 WBC RBC Hgb Hct MCHC RDW MCV MCH Lymph % (Auto) Wright % (Auto) Wright # Eos # Lymph # (Auto) Wright # (Auto) Eos # (Auto) Seg Neutrophils % Seg Neuts % (Manual) Baso # (Auto) Lymphocytes % (Manual) Monocytes % (Manual) Eosinophils % (Manual) Basophils % (Manual) Seg Neutrophils # Seg Neutrophils # Man Lymphocytes # (Manual) Monocytes # (Manual) Eosinophils # (Manual) Nucleated RBC % Basophils # (Manual) APTT Heparin Anti-Xa Level ABG pH POC ABG pO2 ABG pO2 ABG HCO3 ABG O2 Saturation ABG Base Excess POC ABG pCO2 ABG Hemoglobin ABG Oxyhemoglobin Oxyhemoglobin Sodium Potassium Chloride Carbon Dioxide BUN Creatinine Glucose POC Glucose 156 H 156 H 155 H Lactic Acid Calcium Phosphorus Magnesium AST ALT Lactate Dehydrogenase CK-MB (CK-2) C-Reactive Protein NT-Pro-B Natriuret Pep Total Protein Albumin Urine WBC (Auto) 12/20/19 12/20/19 12/20/19 05:26 06:02 18:17 WBC RBC Hgb Hct MCHC RDW MCV MCH Lymph % (Auto) Wright % (Auto) Wright # Eos # Lymph # (Auto) Wright # (Auto) Eos # (Auto) Seg Neutrophils % Seg Neuts % (Manual) Baso # (Auto) Lymphocytes % (Manual) Monocytes % (Manual) Eosinophils % (Manual) Basophils % (Manual) Seg Neutrophils # Seg Neutrophils # Man Lymphocytes # (Manual) Monocytes # (Manual) Eosinophils # (Manual) Nucleated RBC % Basophils # (Manual) APTT Heparin Anti-Xa Level 0.19 L ABG pH POC ABG pO2 ABG pO2 ABG HCO3 ABG O2 Saturation ABG Base Excess POC ABG pCO2 ABG Hemoglobin ABG Oxyhemoglobin Oxyhemoglobin Sodium Potassium Chloride Carbon Dioxide BUN Creatinine Glucose POC Glucose 137 H 128 H Lactic Acid Calcium Phosphorus Magnesium AST ALT Lactate Dehydrogenase CK-MB (CK-2) C-Reactive Protein NT-Pro-B Natriuret Pep Total Protein Albumin Urine WBC (Auto) 12/20/19 12/21/19 12/21/19 23:34 05:31 05:31 WBC 12.7 H RBC 3.09 L Hgb 8.9 L Hct 27.4 L MCHC RDW 15.8 H MCV MCH Lymph % (Auto) 12.1 L Wright % (Auto) 7.8 H Wright # Eos # Lymph # (Auto) Wright # (Auto) 1.0 H Eos # (Auto) Seg Neutrophils % 77.1 H Seg Neuts % (Manual) Baso # (Auto) Lymphocytes % (Manual) Monocytes % (Manual) Eosinophils % (Manual) Basophils % (Manual) Seg Neutrophils # 9.8 H Seg Neutrophils # Man Lymphocytes # (Manual) Monocytes # (Manual) Eosinophils # (Manual) Nucleated RBC % Basophils # (Manual) APTT Heparin Anti-Xa Level ABG pH POC ABG pO2 ABG pO2 ABG HCO3 ABG O2 Saturation ABG Base Excess POC ABG pCO2 ABG Hemoglobin ABG Oxyhemoglobin Oxyhemoglobin Sodium Potassium Chloride 96.9 L Carbon Dioxide 37 H BUN 27 H Creatinine 0.7 L Glucose 140 H POC Glucose 145 H Lactic Acid Calcium Phosphorus Magnesium AST ALT Lactate Dehydrogenase CK-MB (CK-2) C-Reactive Protein NT-Pro-B Natriuret Pep Total Protein Albumin Urine WBC (Auto) 12/21/19 12/21/19 12/21/19 05:38 10:13 11:51 WBC RBC Hgb Hct MCHC RDW MCV MCH Lymph % (Auto) Wright % (Auto) Wright # Eos # Lymph # (Auto) Wright # (Auto) Eos # (Auto) Seg Neutrophils % Seg Neuts % (Manual) Baso # (Auto) Lymphocytes % (Manual) Monocytes % (Manual) Eosinophils % (Manual) Basophils % (Manual) Seg Neutrophils # Seg Neutrophils # Man Lymphocytes # (Manual) Monocytes # (Manual) Eosinophils # (Manual) Nucleated RBC % Basophils # (Manual) APTT 23.9 L Heparin Anti-Xa Level < 0.10 L ABG pH POC ABG pO2 ABG pO2 ABG HCO3 ABG O2 Saturation ABG Base Excess POC ABG pCO2 ABG Hemoglobin ABG Oxyhemoglobin Oxyhemoglobin Sodium Potassium Chloride Carbon Dioxide BUN Creatinine Glucose POC Glucose 151 H 145 H Lactic Acid Calcium Phosphorus Magnesium AST ALT Lactate Dehydrogenase CK-MB (CK-2) C-Reactive Protein NT-Pro-B Natriuret Pep Total Protein Albumin Urine WBC (Auto) 12/21/19 12/22/19 12/22/19 17:16 00:01 01:33 WBC RBC Hgb Hct MCHC RDW MCV MCH Lymph % (Auto) Wright % (Auto) Wright # Eos # Lymph # (Auto) Wright # (Auto) Eos # (Auto) Seg Neutrophils % Seg Neuts % (Manual) Baso # (Auto) Lymphocytes % (Manual) Monocytes % (Manual) Eosinophils % (Manual) Basophils % (Manual) Seg Neutrophils # Seg Neutrophils # Man Lymphocytes # (Manual) Monocytes # (Manual) Eosinophils # (Manual) Nucleated RBC % Basophils # (Manual) APTT Heparin Anti-Xa Level 0.10 L ABG pH POC ABG pO2 ABG pO2 ABG HCO3 ABG O2 Saturation ABG Base Excess POC ABG pCO2 ABG Hemoglobin ABG Oxyhemoglobin Oxyhemoglobin Sodium Potassium Chloride Carbon Dioxide BUN Creatinine Glucose POC Glucose 167 H 179 H Lactic Acid Calcium Phosphorus Magnesium AST ALT Lactate Dehydrogenase CK-MB (CK-2) C-Reactive Protein NT-Pro-B Natriuret Pep Total Protein Albumin Urine WBC (Auto) 12/22/19 12/22/19 12/22/19 03:22 05:10 05:10 WBC 13.8 H RBC 3.20 L Hgb 8.9 L Hct 28.1 L MCHC RDW 15.9 H MCV MCH Lymph % (Auto) Wright % (Auto) Wright # Eos # Lymph # (Auto) Wright # (Auto) Eos # (Auto) Seg Neutrophils % Seg Neuts % (Manual) Baso # (Auto) Lymphocytes % (Manual) Monocytes % (Manual) Eosinophils % (Manual) Basophils % (Manual) Seg Neutrophils # Seg Neutrophils # Man Lymphocytes # (Manual) Monocytes # (Manual) Eosinophils # (Manual) Nucleated RBC % Basophils # (Manual) APTT Heparin Anti-Xa Level ABG pH POC ABG pO2 52.3 L ABG pO2 ABG HCO3 ABG O2 Saturation ABG Base Excess POC ABG pCO2 52.9 H ABG Hemoglobin 10.7 L ABG Oxyhemoglobin 84 L Oxyhemoglobin Sodium Potassium Chloride 96.6 L Carbon Dioxide BUN 25 H Creatinine 0.7 L Glucose 129 H POC Glucose Lactic Acid Calcium Phosphorus Magnesium AST ALT Lactate Dehydrogenase CK-MB (CK-2) C-Reactive Protein NT-Pro-B Natriuret Pep Total Protein Albumin Urine WBC (Auto) 12/22/19 12/22/19 12/22/19 05:18 12:32 12:43 WBC RBC Hgb Hct MCHC RDW MCV MCH Lymph % (Auto) Wright % (Auto) Wright # Eos # Lymph # (Auto) Wright # (Auto) Eos # (Auto) Seg Neutrophils % Seg Neuts % (Manual) Baso # (Auto) Lymphocytes % (Manual) Monocytes % (Manual) Eosinophils % (Manual) Basophils % (Manual) Seg Neutrophils # Seg Neutrophils # Man Lymphocytes # (Manual) Monocytes # (Manual) Eosinophils # (Manual) Nucleated RBC % Basophils # (Manual) APTT Heparin Anti-Xa Level 0.18 L ABG pH POC ABG pO2 ABG pO2 ABG HCO3 ABG O2 Saturation ABG Base Excess POC ABG pCO2 ABG Hemoglobin ABG Oxyhemoglobin Oxyhemoglobin Sodium Potassium Chloride Carbon Dioxide BUN Creatinine Glucose POC Glucose 131 H 208 H Lactic Acid Calcium Phosphorus Magnesium AST ALT Lactate Dehydrogenase CK-MB (CK-2) C-Reactive Protein NT-Pro-B Natriuret Pep Total Protein Albumin Urine WBC (Auto) 12/22/19 12/22/19 12/23/19 17:44 23:20 03:51 WBC 15.2 H RBC 3.43 L Hgb 9.6 L Hct 30.3 L MCHC RDW 15.9 H MCV MCH Lymph % (Auto) Wright % (Auto) Wright # Eos # Lymph # (Auto) Wright # (Auto) Eos # (Auto) Seg Neutrophils % Seg Neuts % (Manual) Baso # (Auto) Lymphocytes % (Manual) Monocytes % (Manual) Eosinophils % (Manual) Basophils % (Manual) Seg Neutrophils # Seg Neutrophils # Man Lymphocytes # (Manual) Monocytes # (Manual) Eosinophils # (Manual) Nucleated RBC % Basophils # (Manual) APTT Heparin Anti-Xa Level ABG pH POC ABG pO2 ABG pO2 ABG HCO3 ABG O2 Saturation ABG Base Excess POC ABG pCO2 ABG Hemoglobin ABG Oxyhemoglobin Oxyhemoglobin Sodium Potassium Chloride Carbon Dioxide BUN Creatinine Glucose POC Glucose 209 H 119 H Lactic Acid Calcium Phosphorus Magnesium AST ALT Lactate Dehydrogenase CK-MB (CK-2) C-Reactive Protein NT-Pro-B Natriuret Pep Total Protein Albumin Urine WBC (Auto) 12/23/19 12/23/19 12/23/19 03:51 05:31 12:09 WBC RBC Hgb Hct MCHC RDW MCV MCH Lymph % (Auto) Wright % (Auto) Wright # Eos # Lymph # (Auto) Wright # (Auto) Eos # (Auto) Seg Neutrophils % Seg Neuts % (Manual) Baso # (Auto) Lymphocytes % (Manual) Monocytes % (Manual) Eosinophils % (Manual) Basophils % (Manual) Seg Neutrophils # Seg Neutrophils # Man Lymphocytes # (Manual) Monocytes # (Manual) Eosinophils # (Manual) Nucleated RBC % Basophils # (Manual) APTT Heparin Anti-Xa Level ABG pH POC ABG pO2 ABG pO2 ABG HCO3 ABG O2 Saturation ABG Base Excess POC ABG pCO2 ABG Hemoglobin ABG Oxyhemoglobin Oxyhemoglobin Sodium Potassium Chloride 97.2 L Carbon Dioxide 31 H BUN 23 H Creatinine 0.6 L Glucose 153 H POC Glucose 149 H 144 H Lactic Acid Calcium Phosphorus Magnesium AST ALT Lactate Dehydrogenase CK-MB (CK-2) C-Reactive Protein NT-Pro-B Natriuret Pep Total Protein Albumin Urine WBC (Auto) 12/23/19 12/23/19 12/23/19 15:30 17:49 23:31 WBC RBC Hgb Hct MCHC RDW MCV MCH Lymph % (Auto) Wright % (Auto) Wright # Eos # Lymph # (Auto) Wright # (Auto) Eos # (Auto) Seg Neutrophils % Seg Neuts % (Manual) Baso # (Auto) Lymphocytes % (Manual) Monocytes % (Manual) Eosinophils % (Manual) Basophils % (Manual) Seg Neutrophils # Seg Neutrophils # Man Lymphocytes # (Manual) Monocytes # (Manual) Eosinophils # (Manual) Nucleated RBC % Basophils # (Manual) APTT Heparin Anti-Xa Level 0.21 L ABG pH POC ABG pO2 ABG pO2 ABG HCO3 ABG O2 Saturation ABG Base Excess POC ABG pCO2 ABG Hemoglobin ABG Oxyhemoglobin Oxyhemoglobin Sodium Potassium Chloride Carbon Dioxide BUN Creatinine Glucose POC Glucose 192 H 151 H Lactic Acid Calcium Phosphorus Magnesium AST ALT Lactate Dehydrogenase CK-MB (CK-2) C-Reactive Protein NT-Pro-B Natriuret Pep Total Protein Albumin Urine WBC (Auto) 12/24/19 12/24/19 12/24/19 05:34 12:13 16:50 WBC RBC Hgb Hct MCHC RDW MCV MCH Lymph % (Auto) Wright % (Auto) Wright # Eos # Lymph # (Auto) Wright # (Auto) Eos # (Auto) Seg Neutrophils % Seg Neuts % (Manual) Baso # (Auto) Lymphocytes % (Manual) Monocytes % (Manual) Eosinophils % (Manual) Basophils % (Manual) Seg Neutrophils # Seg Neutrophils # Man Lymphocytes # (Manual) Monocytes # (Manual) Eosinophils # (Manual) Nucleated RBC % Basophils # (Manual) APTT Heparin Anti-Xa Level 0.16 L ABG pH POC ABG pO2 ABG pO2 ABG HCO3 ABG O2 Saturation ABG Base Excess POC ABG pCO2 ABG Hemoglobin ABG Oxyhemoglobin Oxyhemoglobin Sodium Potassium Chloride Carbon Dioxide BUN Creatinine Glucose POC Glucose 145 H 124 H Lactic Acid Calcium Phosphorus Magnesium AST ALT Lactate Dehydrogenase CK-MB (CK-2) C-Reactive Protein NT-Pro-B Natriuret Pep Total Protein Albumin Urine WBC (Auto) 12/24/19 12/25/19 12/25/19 17:53 00:14 04:18 WBC 12.9 H RBC 3.30 L Hgb 9.1 L Hct 28.8 L MCHC RDW 16.4 H MCV MCH Lymph % (Auto) Wright % (Auto) 7.8 H Wright # Eos # Lymph # (Auto) Wright # (Auto) 1.0 H Eos # (Auto) Seg Neutrophils % 75.5 H Seg Neuts % (Manual) Baso # (Auto) Lymphocytes % (Manual) Monocytes % (Manual) Eosinophils % (Manual) Basophils % (Manual) Seg Neutrophils # 9.7 H Seg Neutrophils # Man Lymphocytes # (Manual) Monocytes # (Manual) Eosinophils # (Manual) Nucleated RBC % Basophils # (Manual) APTT Heparin Anti-Xa Level ABG pH POC ABG pO2 ABG pO2 ABG HCO3 ABG O2 Saturation ABG Base Excess POC ABG pCO2 ABG Hemoglobin ABG Oxyhemoglobin Oxyhemoglobin Sodium Potassium Chloride Carbon Dioxide BUN Creatinine Glucose POC Glucose 164 H 148 H Lactic Acid Calcium Phosphorus Magnesium AST ALT Lactate Dehydrogenase CK-MB (CK-2) C-Reactive Protein NT-Pro-B Natriuret Pep Total Protein Albumin Urine WBC (Auto) 12/25/19 12/25/19 12/25/19 04:18 05:38 11:44 WBC RBC Hgb Hct MCHC RDW MCV MCH Lymph % (Auto) Wright % (Auto) Wright # Eos # Lymph # (Auto) Wright # (Auto) Eos # (Auto) Seg Neutrophils % Seg Neuts % (Manual) Baso # (Auto) Lymphocytes % (Manual) Monocytes % (Manual) Eosinophils % (Manual) Basophils % (Manual) Seg Neutrophils # Seg Neutrophils # Man Lymphocytes # (Manual) Monocytes # (Manual) Eosinophils # (Manual) Nucleated RBC % Basophils # (Manual) APTT Heparin Anti-Xa Level ABG pH POC ABG pO2 ABG pO2 ABG HCO3 ABG O2 Saturation ABG Base Excess POC ABG pCO2 ABG Hemoglobin ABG Oxyhemoglobin Oxyhemoglobin Sodium Potassium Chloride Carbon Dioxide 33 H BUN 27 H Creatinine 0.6 L Glucose 132 H POC Glucose 152 H 166 H Lactic Acid Calcium Phosphorus Magnesium AST ALT Lactate Dehydrogenase CK-MB (CK-2) C-Reactive Protein NT-Pro-B Natriuret Pep Total Protein Albumin Urine WBC (Auto) 12/25/19 12/26/19 12/26/19 18:29 00:17 00:18 WBC RBC Hgb Hct MCHC RDW MCV MCH Lymph % (Auto) Wright % (Auto) Wright # Eos # Lymph # (Auto) Wright # (Auto) Eos # (Auto) Seg Neutrophils % Seg Neuts % (Manual) Baso # (Auto) Lymphocytes % (Manual) Monocytes % (Manual) Eosinophils % (Manual) Basophils % (Manual) Seg Neutrophils # Seg Neutrophils # Man Lymphocytes # (Manual) Monocytes # (Manual) Eosinophils # (Manual) Nucleated RBC % Basophils # (Manual) APTT Heparin Anti-Xa Level ABG pH POC ABG pO2 ABG pO2 ABG HCO3 ABG O2 Saturation ABG Base Excess POC ABG pCO2 ABG Hemoglobin ABG Oxyhemoglobin Oxyhemoglobin Sodium Potassium Chloride 97.8 L Carbon Dioxide BUN 25 H Creatinine 0.6 L Glucose 140 H POC Glucose 194 H 151 H Lactic Acid Calcium Phosphorus Magnesium AST ALT Lactate Dehydrogenase CK-MB (CK-2) C-Reactive Protein NT-Pro-B Natriuret Pep Total Protein Albumin Urine WBC (Auto) 12/26/19 12/26/19 12/26/19 05:36 11:41 17:50 WBC RBC Hgb Hct MCHC RDW MCV MCH Lymph % (Auto) Wright % (Auto) Wright # Eos # Lymph # (Auto) Wright # (Auto) Eos # (Auto) Seg Neutrophils % Seg Neuts % (Manual) Baso # (Auto) Lymphocytes % (Manual) Monocytes % (Manual) Eosinophils % (Manual) Basophils % (Manual) Seg Neutrophils # Seg Neutrophils # Man Lymphocytes # (Manual) Monocytes # (Manual) Eosinophils # (Manual) Nucleated RBC % Basophils # (Manual) APTT Heparin Anti-Xa Level ABG pH POC ABG pO2 ABG pO2 ABG HCO3 ABG O2 Saturation ABG Base Excess POC ABG pCO2 ABG Hemoglobin ABG Oxyhemoglobin Oxyhemoglobin Sodium Potassium Chloride Carbon Dioxide BUN Creatinine Glucose POC Glucose 156 H 148 H 139 H Lactic Acid Calcium Phosphorus Magnesium AST ALT Lactate Dehydrogenase CK-MB (CK-2) C-Reactive Protein NT-Pro-B Natriuret Pep Total Protein Albumin Urine WBC (Auto) 12/26/19 12/27/19 12/27/19 23:19 05:34 12:02 WBC RBC Hgb Hct MCHC RDW MCV MCH Lymph % (Auto) Wright % (Auto) Wright # Eos # Lymph # (Auto) Wright # (Auto) Eos # (Auto) Seg Neutrophils % Seg Neuts % (Manual) Baso # (Auto) Lymphocytes % (Manual) Monocytes % (Manual) Eosinophils % (Manual) Basophils % (Manual) Seg Neutrophils # Seg Neutrophils # Man Lymphocytes # (Manual) Monocytes # (Manual) Eosinophils # (Manual) Nucleated RBC % Basophils # (Manual) APTT Heparin Anti-Xa Level ABG pH POC ABG pO2 ABG pO2 ABG HCO3 ABG O2 Saturation ABG Base Excess POC ABG pCO2 ABG Hemoglobin ABG Oxyhemoglobin Oxyhemoglobin Sodium Potassium Chloride Carbon Dioxide BUN Creatinine Glucose POC Glucose 161 H 145 H 157 H Lactic Acid Calcium Phosphorus Magnesium AST ALT Lactate Dehydrogenase CK-MB (CK-2) C-Reactive Protein NT-Pro-B Natriuret Pep Total Protein Albumin Urine WBC (Auto) 12/27/19 12/27/19 12/27/19 17:35 20:11 23:00 WBC RBC Hgb Hct MCHC RDW MCV MCH Lymph % (Auto) Wright % (Auto) Wright # Eos # Lymph # (Auto) Wright # (Auto) Eos # (Auto) Seg Neutrophils % Seg Neuts % (Manual) Baso # (Auto) Lymphocytes % (Manual) Monocytes % (Manual) Eosinophils % (Manual) Basophils % (Manual) Seg Neutrophils # Seg Neutrophils # Man Lymphocytes # (Manual) Monocytes # (Manual) Eosinophils # (Manual) Nucleated RBC % Basophils # (Manual) APTT Heparin Anti-Xa Level 0.19 L ABG pH POC ABG pO2 ABG pO2 ABG HCO3 ABG O2 Saturation ABG Base Excess POC ABG pCO2 ABG Hemoglobin ABG Oxyhemoglobin Oxyhemoglobin Sodium Potassium Chloride Carbon Dioxide BUN Creatinine Glucose POC Glucose 158 H 155 H Lactic Acid Calcium Phosphorus Magnesium AST ALT Lactate Dehydrogenase CK-MB (CK-2) C-Reactive Protein NT-Pro-B Natriuret Pep Total Protein Albumin Urine WBC (Auto) 12/27/19 12/28/19 12/28/19 23:45 02:41 02:41 WBC 13.0 H RBC 3.48 L Hgb 9.5 L Hct 30.6 L MCHC 31 L RDW 16.6 H MCV MCH 27 L Lymph % (Auto) 13.0 L Wright % (Auto) 8.0 H Wright # Eos # Lymph # (Auto) Wright # (Auto) 1.0 H Eos # (Auto) Seg Neutrophils % 76.3 H Seg Neuts % (Manual) Baso # (Auto) Lymphocytes % (Manual) Monocytes % (Manual) Eosinophils % (Manual) Basophils % (Manual) Seg Neutrophils # 9.9 H Seg Neutrophils # Man Lymphocytes # (Manual) Monocytes # (Manual) Eosinophils # (Manual) Nucleated RBC % Basophils # (Manual) APTT Heparin Anti-Xa Level ABG pH POC ABG pO2 ABG pO2 ABG HCO3 ABG O2 Saturation ABG Base Excess POC ABG pCO2 ABG Hemoglobin ABG Oxyhemoglobin Oxyhemoglobin Sodium Potassium Chloride Carbon Dioxide BUN 22 H Creatinine 0.6 L Glucose 101 H POC Glucose 130 H Lactic Acid Calcium Phosphorus Magnesium AST ALT Lactate Dehydrogenase CK-MB (CK-2) C-Reactive Protein NT-Pro-B Natriuret Pep Total Protein Albumin Urine WBC (Auto) 12/28/19 12/28/19 12/28/19 06:00 12:34 18:13 WBC RBC Hgb Hct MCHC RDW MCV MCH Lymph % (Auto) Wright % (Auto) Wright # Eos # Lymph # (Auto) Wright # (Auto) Eos # (Auto) Seg Neutrophils % Seg Neuts % (Manual) Baso # (Auto) Lymphocytes % (Manual) Monocytes % (Manual) Eosinophils % (Manual) Basophils % (Manual) Seg Neutrophils # Seg Neutrophils # Man Lymphocytes # (Manual) Monocytes # (Manual) Eosinophils # (Manual) Nucleated RBC % Basophils # (Manual) APTT Heparin Anti-Xa Level ABG pH POC ABG pO2 ABG pO2 ABG HCO3 ABG O2 Saturation ABG Base Excess POC ABG pCO2 ABG Hemoglobin ABG Oxyhemoglobin Oxyhemoglobin Sodium Potassium Chloride Carbon Dioxide BUN Creatinine Glucose POC Glucose 150 H 161 H 128 H Lactic Acid Calcium Phosphorus Magnesium AST ALT Lactate Dehydrogenase CK-MB (CK-2) C-Reactive Protein NT-Pro-B Natriuret Pep Total Protein Albumin Urine WBC (Auto) 12/28/19 12/29/19 12/29/19 23:36 05:21 11:40 WBC RBC Hgb Hct MCHC RDW MCV MCH Lymph % (Auto) Wright % (Auto) Wright # Eos # Lymph # (Auto) Wright # (Auto) Eos # (Auto) Seg Neutrophils % Seg Neuts % (Manual) Baso # (Auto) Lymphocytes % (Manual) Monocytes % (Manual) Eosinophils % (Manual) Basophils % (Manual) Seg Neutrophils # Seg Neutrophils # Man Lymphocytes # (Manual) Monocytes # (Manual) Eosinophils # (Manual) Nucleated RBC % Basophils # (Manual) APTT Heparin Anti-Xa Level ABG pH POC ABG pO2 ABG pO2 ABG HCO3 ABG O2 Saturation ABG Base Excess POC ABG pCO2 ABG Hemoglobin ABG Oxyhemoglobin Oxyhemoglobin Sodium Potassium Chloride Carbon Dioxide BUN Creatinine Glucose POC Glucose 137 H 136 H 166 H Lactic Acid Calcium Phosphorus Magnesium AST ALT Lactate Dehydrogenase CK-MB (CK-2) C-Reactive Protein NT-Pro-B Natriuret Pep Total Protein Albumin Urine WBC (Auto) 12/29/19 12/29/19 12/29/19 17:23 19:21 23:38 WBC RBC Hgb Hct MCHC RDW MCV MCH Lymph % (Auto) Wright % (Auto) Wright # Eos # Lymph # (Auto) Wright # (Auto) Eos # (Auto) Seg Neutrophils % Seg Neuts % (Manual) Baso # (Auto) Lymphocytes % (Manual) Monocytes % (Manual) Eosinophils % (Manual) Basophils % (Manual) Seg Neutrophils # Seg Neutrophils # Man Lymphocytes # (Manual) Monocytes # (Manual) Eosinophils # (Manual) Nucleated RBC % Basophils # (Manual) APTT Heparin Anti-Xa Level 0.20 L ABG pH POC ABG pO2 ABG pO2 ABG HCO3 ABG O2 Saturation ABG Base Excess POC ABG pCO2 ABG Hemoglobin ABG Oxyhemoglobin Oxyhemoglobin Sodium Potassium Chloride Carbon Dioxide BUN Creatinine Glucose POC Glucose 144 H 141 H Lactic Acid Calcium Phosphorus Magnesium AST ALT Lactate Dehydrogenase CK-MB (CK-2) C-Reactive Protein NT-Pro-B Natriuret Pep Total Protein Albumin Urine WBC (Auto) 12/30/19 12/30/19 12/30/19 03:58 03:58 04:59 WBC RBC 3.54 L Hgb 9.8 L Hct 30.7 L MCHC RDW 16.8 H MCV MCH Lymph % (Auto) Wright % (Auto) Wright # Eos # Lymph # (Auto) Wright # (Auto) Eos # (Auto) Seg Neutrophils % Seg Neuts % (Manual) Baso # (Auto) Lymphocytes % (Manual) Monocytes % (Manual) Eosinophils % (Manual) Basophils % (Manual) Seg Neutrophils # Seg Neutrophils # Man Lymphocytes # (Manual) Monocytes # (Manual) Eosinophils # (Manual) Nucleated RBC % Basophils # (Manual) APTT Heparin Anti-Xa Level ABG pH POC ABG pO2 ABG pO2 ABG HCO3 29.8 H ABG O2 Saturation ABG Base Excess 4.8 H POC ABG pCO2 ABG Hemoglobin 11.2 L ABG Oxyhemoglobin Oxyhemoglobin 93.8 L Sodium Potassium Chloride 97.8 L Carbon Dioxide BUN 26 H Creatinine Glucose 168 H POC Glucose Lactic Acid Calcium Phosphorus Magnesium AST ALT Lactate Dehydrogenase CK-MB (CK-2) C-Reactive Protein NT-Pro-B Natriuret Pep Total Protein Albumin Urine WBC (Auto) 12/30/19 12/30/19 12/30/19 05:45 11:34 17:28 WBC RBC Hgb Hct MCHC RDW MCV MCH Lymph % (Auto) Wright % (Auto) Wright # Eos # Lymph # (Auto) Wright # (Auto) Eos # (Auto) Seg Neutrophils % Seg Neuts % (Manual) Baso # (Auto) Lymphocytes % (Manual) Monocytes % (Manual) Eosinophils % (Manual) Basophils % (Manual) Seg Neutrophils # Seg Neutrophils # Man Lymphocytes # (Manual) Monocytes # (Manual) Eosinophils # (Manual) Nucleated RBC % Basophils # (Manual) APTT Heparin Anti-Xa Level ABG pH POC ABG pO2 ABG pO2 ABG HCO3 ABG O2 Saturation ABG Base Excess POC ABG pCO2 ABG Hemoglobin ABG Oxyhemoglobin Oxyhemoglobin Sodium Potassium Chloride Carbon Dioxide BUN Creatinine Glucose POC Glucose 163 H 180 H 150 H Lactic Acid Calcium Phosphorus Magnesium AST ALT Lactate Dehydrogenase CK-MB (CK-2) C-Reactive Protein NT-Pro-B Natriuret Pep Total Protein Albumin Urine WBC (Auto) 12/30/19 12/31/19 12/31/19 23:43 04:55 05:07 WBC RBC Hgb Hct MCHC RDW MCV MCH Lymph % (Auto) Wright % (Auto) Wright # Eos # Lymph # (Auto) Wright # (Auto) Eos # (Auto) Seg Neutrophils % Seg Neuts % (Manual) Baso # (Auto) Lymphocytes % (Manual) Monocytes % (Manual) Eosinophils % (Manual) Basophils % (Manual) Seg Neutrophils # Seg Neutrophils # Man Lymphocytes # (Manual) Monocytes # (Manual) Eosinophils # (Manual) Nucleated RBC % Basophils # (Manual) APTT Heparin Anti-Xa Level ABG pH POC ABG pO2 ABG pO2 ABG HCO3 ABG O2 Saturation ABG Base Excess POC ABG pCO2 ABG Hemoglobin ABG Oxyhemoglobin Oxyhemoglobin Sodium Potassium 5.6 H D Chloride Carbon Dioxide BUN 33 H Creatinine Glucose 131 H POC Glucose 142 H 134 H Lactic Acid Calcium Phosphorus Magnesium AST ALT Lactate Dehydrogenase CK-MB (CK-2) C-Reactive Protein NT-Pro-B Natriuret Pep Total Protein Albumin Urine WBC (Auto) 12/31/19 12/31/19 12/31/19 11:30 17:19 17:36 WBC RBC Hgb Hct MCHC RDW MCV MCH Lymph % (Auto) Wright % (Auto) Wright # Eos # Lymph # (Auto) Wright # (Auto) Eos # (Auto) Seg Neutrophils % Seg Neuts % (Manual) Baso # (Auto) Lymphocytes % (Manual) Monocytes % (Manual) Eosinophils % (Manual) Basophils % (Manual) Seg Neutrophils # Seg Neutrophils # Man Lymphocytes # (Manual) Monocytes # (Manual) Eosinophils # (Manual) Nucleated RBC % Basophils # (Manual) APTT Heparin Anti-Xa Level ABG pH POC ABG pO2 ABG pO2 ABG HCO3 ABG O2 Saturation ABG Base Excess POC ABG pCO2 ABG Hemoglobin ABG Oxyhemoglobin Oxyhemoglobin Sodium Potassium Chloride Carbon Dioxide BUN 35 H Creatinine Glucose 156 H POC Glucose 158 H 181 H Lactic Acid Calcium Phosphorus Magnesium AST ALT Lactate Dehydrogenase CK-MB (CK-2) C-Reactive Protein NT-Pro-B Natriuret Pep Total Protein Albumin Urine WBC (Auto) 12/31/19 12/31/19 12/31/19 18:16 19:41 21:53 WBC RBC Hgb Hct MCHC RDW MCV MCH Lymph % (Auto) Wright % (Auto) Wright # Eos # Lymph # (Auto) Wright # (Auto) Eos # (Auto) Seg Neutrophils % Seg Neuts % (Manual) Baso # (Auto) Lymphocytes % (Manual) Monocytes % (Manual) Eosinophils % (Manual) Basophils % (Manual) Seg Neutrophils # Seg Neutrophils # Man Lymphocytes # (Manual) Monocytes # (Manual) Eosinophils # (Manual) Nucleated RBC % Basophils # (Manual) APTT Heparin Anti-Xa Level 0.20 L ABG pH POC ABG pO2 ABG pO2 ABG HCO3 ABG O2 Saturation ABG Base Excess POC ABG pCO2 ABG Hemoglobin ABG Oxyhemoglobin Oxyhemoglobin Sodium Potassium Chloride Carbon Dioxide BUN 34 H Creatinine Glucose 169 H POC Glucose 141 H Lactic Acid Calcium Phosphorus Magnesium AST ALT Lactate Dehydrogenase CK-MB (CK-2) C-Reactive Protein NT-Pro-B Natriuret Pep Total Protein Albumin Urine WBC (Auto) 12/31/19 01/01/20 01/01/20 23:51 05:17 10:40 WBC RBC Hgb Hct MCHC RDW MCV MCH Lymph % (Auto) Wright % (Auto) Wright # Eos # Lymph # (Auto) Wright # (Auto) Eos # (Auto) Seg Neutrophils % Seg Neuts % (Manual) Baso # (Auto) Lymphocytes % (Manual) Monocytes % (Manual) Eosinophils % (Manual) Basophils % (Manual) Seg Neutrophils # Seg Neutrophils # Man Lymphocytes # (Manual) Monocytes # (Manual) Eosinophils # (Manual) Nucleated RBC % Basophils # (Manual) APTT Heparin Anti-Xa Level ABG pH POC ABG pO2 ABG pO2 ABG HCO3 ABG O2 Saturation ABG Base Excess POC ABG pCO2 ABG Hemoglobin ABG Oxyhemoglobin Oxyhemoglobin Sodium Potassium Chloride Carbon Dioxide BUN 31 H Creatinine 0.7 L Glucose 137 H POC Glucose 131 H 155 H Lactic Acid Calcium Phosphorus Magnesium AST 73 H ALT 97 H Lactate Dehydrogenase CK-MB (CK-2) C-Reactive Protein NT-Pro-B Natriuret Pep 3866 H Total Protein Albumin 2.8 L Urine WBC (Auto) 01/01/20 01/01/20 01/01/20 12:26 15:33 17:53 WBC 14.3 H RBC 3.35 L Hgb 9.1 L Hct 28.8 L MCHC RDW 17.0 H MCV MCH 27 L Lymph % (Auto) 7.0 L Wright % (Auto) 7.6 H Wright # Eos # Lymph # (Auto) 1.0 L Wright # (Auto) 1.1 H Eos # (Auto) Seg Neutrophils % 83.3 H Seg Neuts % (Manual) Baso # (Auto) Lymphocytes % (Manual) Monocytes % (Manual) Eosinophils % (Manual) Basophils % (Manual) Seg Neutrophils # 12.0 H Seg Neutrophils # Man Lymphocytes # (Manual) Monocytes # (Manual) Eosinophils # (Manual) Nucleated RBC % Basophils # (Manual) APTT Heparin Anti-Xa Level ABG pH POC ABG pO2 ABG pO2 ABG HCO3 ABG O2 Saturation ABG Base Excess POC ABG pCO2 ABG Hemoglobin ABG Oxyhemoglobin Oxyhemoglobin Sodium Potassium Chloride Carbon Dioxide BUN Creatinine Glucose POC Glucose 128 H 128 H Lactic Acid Calcium Phosphorus Magnesium AST ALT Lactate Dehydrogenase CK-MB (CK-2) C-Reactive Protein NT-Pro-B Natriuret Pep Total Protein Albumin Urine WBC (Auto) 01/01/20 01/02/20 01/02/20 23:04 05:39 07:00 WBC RBC Hgb Hct MCHC RDW MCV MCH Lymph % (Auto) Wright % (Auto) Wright # Eos # Lymph # (Auto) Wright # (Auto) Eos # (Auto) Seg Neutrophils % Seg Neuts % (Manual) Baso # (Auto) Lymphocytes % (Manual) Monocytes % (Manual) Eosinophils % (Manual) Basophils % (Manual) Seg Neutrophils # Seg Neutrophils # Man Lymphocytes # (Manual) Monocytes # (Manual) Eosinophils # (Manual) Nucleated RBC % Basophils # (Manual) APTT Heparin Anti-Xa Level 0.13 L ABG pH POC ABG pO2 ABG pO2 ABG HCO3 ABG O2 Saturation ABG Base Excess POC ABG pCO2 ABG Hemoglobin ABG Oxyhemoglobin Oxyhemoglobin Sodium Potassium Chloride Carbon Dioxide BUN Creatinine Glucose POC Glucose 120 H 169 H Lactic Acid Calcium Phosphorus Magnesium AST ALT Lactate Dehydrogenase CK-MB (CK-2) C-Reactive Protein NT-Pro-B Natriuret Pep Total Protein Albumin Urine WBC (Auto) 01/02/20 01/02/20 01/02/20 12:15 14:06 17:58 WBC RBC Hgb Hct MCHC RDW MCV MCH Lymph % (Auto) Wright % (Auto) Wright # Eos # Lymph # (Auto) Wright # (Auto) Eos # (Auto) Seg Neutrophils % Seg Neuts % (Manual) Baso # (Auto) Lymphocytes % (Manual) Monocytes % (Manual) Eosinophils % (Manual) Basophils % (Manual) Seg Neutrophils # Seg Neutrophils # Man Lymphocytes # (Manual) Monocytes # (Manual) Eosinophils # (Manual) Nucleated RBC % Basophils # (Manual) APTT Heparin Anti-Xa Level < 0.10 L ABG pH POC ABG pO2 ABG pO2 ABG HCO3 ABG O2 Saturation ABG Base Excess POC ABG pCO2 ABG Hemoglobin ABG Oxyhemoglobin Oxyhemoglobin Sodium Potassium Chloride Carbon Dioxide BUN Creatinine Glucose POC Glucose 190 H 198 H Lactic Acid Calcium Phosphorus Magnesium AST ALT Lactate Dehydrogenase CK-MB (CK-2) C-Reactive Protein NT-Pro-B Natriuret Pep Total Protein Albumin Urine WBC (Auto) 01/02/20 01/02/20 01/03/20 21:43 23:33 05:42 WBC RBC Hgb Hct MCHC RDW MCV MCH Lymph % (Auto) Wright % (Auto) Wright # Eos # Lymph # (Auto) Wright # (Auto) Eos # (Auto) Seg Neutrophils % Seg Neuts % (Manual) Baso # (Auto) Lymphocytes % (Manual) Monocytes % (Manual) Eosinophils % (Manual) Basophils % (Manual) Seg Neutrophils # Seg Neutrophils # Man Lymphocytes # (Manual) Monocytes # (Manual) Eosinophils # (Manual) Nucleated RBC % Basophils # (Manual) APTT Heparin Anti-Xa Level 0.10 L ABG pH POC ABG pO2 ABG pO2 ABG HCO3 ABG O2 Saturation ABG Base Excess POC ABG pCO2 ABG Hemoglobin ABG Oxyhemoglobin Oxyhemoglobin Sodium Potassium Chloride Carbon Dioxide BUN Creatinine Glucose POC Glucose 180 H 163 H Lactic Acid Calcium Phosphorus Magnesium AST ALT Lactate Dehydrogenase CK-MB (CK-2) C-Reactive Protein NT-Pro-B Natriuret Pep Total Protein Albumin Urine WBC (Auto) 01/03/20 01/03/20 01/03/20 06:50 07:25 07:45 WBC 12.1 H RBC 3.35 L Hgb 9.0 L Hct 28.9 L MCHC 31 L RDW 16.6 H MCV MCH 27 L Lymph % (Auto) 13.0 L Wright % (Auto) 8.6 H Wright # Eos # Lymph # (Auto) Wright # (Auto) 1.0 H Eos # (Auto) Seg Neutrophils % 75.9 H Seg Neuts % (Manual) Baso # (Auto) Lymphocytes % (Manual) Monocytes % (Manual) Eosinophils % (Manual) Basophils % (Manual) Seg Neutrophils # 9.2 H Seg Neutrophils # Man Lymphocytes # (Manual) Monocytes # (Manual) Eosinophils # (Manual) Nucleated RBC % Basophils # (Manual) APTT Heparin Anti-Xa Level 0.29 L ABG pH POC ABG pO2 ABG pO2 ABG HCO3 ABG O2 Saturation ABG Base Excess POC ABG pCO2 ABG Hemoglobin ABG Oxyhemoglobin Oxyhemoglobin Sodium Potassium 3.3 L D Chloride Carbon Dioxide 35 H D BUN 23 H Creatinine 0.6 L Glucose 149 H POC Glucose Lactic Acid Calcium Phosphorus Magnesium AST ALT 88 H Lactate Dehydrogenase CK-MB (CK-2) C-Reactive Protein NT-Pro-B Natriuret Pep Total Protein 6.2 L Albumin 2.9 L Urine WBC (Auto) 01/03/20 01/03/20 01/03/20 12:05 17:42 18:30 WBC RBC Hgb Hct MCHC RDW MCV MCH Lymph % (Auto) Wright % (Auto) Wright # Eos # Lymph # (Auto) Wright # (Auto) Eos # (Auto) Seg Neutrophils % Seg Neuts % (Manual) Baso # (Auto) Lymphocytes % (Manual) Monocytes % (Manual) Eosinophils % (Manual) Basophils % (Manual) Seg Neutrophils # Seg Neutrophils # Man Lymphocytes # (Manual) Monocytes # (Manual) Eosinophils # (Manual) Nucleated RBC % Basophils # (Manual) APTT Heparin Anti-Xa Level ABG pH POC ABG pO2 ABG pO2 70.7 L ABG HCO3 36.1 H ABG O2 Saturation 94.4 L ABG Base Excess 10.0 H POC ABG pCO2 ABG Hemoglobin 9.7 L ABG Oxyhemoglobin Oxyhemoglobin 91.8 L Sodium Potassium Chloride Carbon Dioxide BUN Creatinine Glucose POC Glucose 128 H 132 H Lactic Acid Calcium Phosphorus Magnesium AST ALT Lactate Dehydrogenase CK-MB (CK-2) C-Reactive Protein NT-Pro-B Natriuret Pep Total Protein Albumin Urine WBC (Auto) 01/04/20 01/04/20 01/04/20 00:10 04:26 05:23 WBC RBC Hgb Hct MCHC RDW MCV MCH Lymph % (Auto) Wright % (Auto) Wright # Eos # Lymph # (Auto) Wright # (Auto) Eos # (Auto) Seg Neutrophils % Seg Neuts % (Manual) Baso # (Auto) Lymphocytes % (Manual) Monocytes % (Manual) Eosinophils % (Manual) Basophils % (Manual) Seg Neutrophils # Seg Neutrophils # Man Lymphocytes # (Manual) Monocytes # (Manual) Eosinophils # (Manual) Nucleated RBC % Basophils # (Manual) APTT Heparin Anti-Xa Level 0.16 L ABG pH POC ABG pO2 ABG pO2 ABG HCO3 ABG O2 Saturation ABG Base Excess POC ABG pCO2 ABG Hemoglobin ABG Oxyhemoglobin Oxyhemoglobin Sodium Potassium Chloride Carbon Dioxide BUN Creatinine Glucose POC Glucose 121 H 119 H Lactic Acid Calcium Phosphorus Magnesium AST ALT Lactate Dehydrogenase CK-MB (CK-2) C-Reactive Protein NT-Pro-B Natriuret Pep Total Protein Albumin Urine WBC (Auto) 01/04/20 01/04/20 01/04/20 09:50 09:50 12:18 WBC 15.4 H RBC 3.30 L Hgb 8.7 L Hct 28.2 L MCHC 31 L RDW 17.0 H MCV MCH 26 L Lymph % (Auto) Wright % (Auto) 7.6 H Wright # Eos # Lymph # (Auto) Wright # (Auto) 1.2 H Eos # (Auto) Seg Neutrophils % 75.4 H Seg Neuts % (Manual) Baso # (Auto) Lymphocytes % (Manual) Monocytes % (Manual) Eosinophils % (Manual) Basophils % (Manual) Seg Neutrophils # 11.6 H Seg Neutrophils # Man Lymphocytes # (Manual) Monocytes # (Manual) Eosinophils # (Manual) Nucleated RBC % Basophils # (Manual) APTT Heparin Anti-Xa Level ABG pH POC ABG pO2 ABG pO2 ABG HCO3 ABG O2 Saturation ABG Base Excess POC ABG pCO2 ABG Hemoglobin ABG Oxyhemoglobin Oxyhemoglobin Sodium 148 H Potassium 3.5 L Chloride Carbon Dioxide 32 H BUN Creatinine 0.6 L Glucose 114 H POC Glucose 111 H Lactic Acid Calcium Phosphorus Magnesium AST ALT 59 H Lactate Dehydrogenase CK-MB (CK-2) C-Reactive Protein NT-Pro-B Natriuret Pep Total Protein Albumin 2.6 L Urine WBC (Auto) 01/05/20 01/05/20 01/05/20 04:05 04:05 05:19 WBC 11.7 H RBC 3.50 L Hgb 9.3 L Hct 29.9 L MCHC 31 L RDW 16.6 H MCV MCH 27 L Lymph % (Auto) 13.1 L Wright % (Auto) 9.7 H Wright # Eos # Lymph # (Auto) Wright # (Auto) 1.1 H Eos # (Auto) Seg Neutrophils % 74.0 H Seg Neuts % (Manual) Baso # (Auto) Lymphocytes % (Manual) Monocytes % (Manual) Eosinophils % (Manual) Basophils % (Manual) Seg Neutrophils # 8.6 H Seg Neutrophils # Man Lymphocytes # (Manual) Monocytes # (Manual) Eosinophils # (Manual) Nucleated RBC % Basophils # (Manual) APTT Heparin Anti-Xa Level ABG pH POC ABG pO2 ABG pO2 ABG HCO3 ABG O2 Saturation ABG Base Excess POC ABG pCO2 ABG Hemoglobin ABG Oxyhemoglobin Oxyhemoglobin Sodium 151 H Potassium Chloride Carbon Dioxide 34 H BUN Creatinine 0.7 L Glucose POC Glucose 112 H Lactic Acid Calcium Phosphorus Magnesium AST ALT 59 H Lactate Dehydrogenase CK-MB (CK-2) C-Reactive Protein NT-Pro-B Natriuret Pep Total Protein 5.8 L Albumin 2.6 L Urine WBC (Auto) 01/05/20 01/06/20 01/06/20 16:04 00:23 04:44 WBC RBC 3.36 L Hgb 8.9 L Hct 28.7 L MCHC 31 L RDW 16.9 H MCV MCH 26 L Lymph % (Auto) Wright % (Auto) 9.4 H Wright # Eos # Lymph # (Auto) Wright # (Auto) Eos # (Auto) Seg Neutrophils % Seg Neuts % (Manual) Baso # (Auto) Lymphocytes % (Manual) Monocytes % (Manual) Eosinophils % (Manual) Basophils % (Manual) Seg Neutrophils # Seg Neutrophils # Man Lymphocytes # (Manual) Monocytes # (Manual) Eosinophils # (Manual) Nucleated RBC % Basophils # (Manual) APTT Heparin Anti-Xa Level ABG pH POC ABG pO2 ABG pO2 ABG HCO3 ABG O2 Saturation ABG Base Excess POC ABG pCO2 ABG Hemoglobin ABG Oxyhemoglobin Oxyhemoglobin Sodium 151 H Potassium 3.2 L Chloride Carbon Dioxide 34 H BUN Creatinine 0.6 L Glucose POC Glucose 107 H Lactic Acid Calcium Phosphorus Magnesium AST ALT Lactate Dehydrogenase CK-MB (CK-2) C-Reactive Protein NT-Pro-B Natriuret Pep Total Protein Albumin Urine WBC (Auto) 01/06/20 01/06/20 01/06/20 04:44 05:33 12:04 WBC RBC Hgb Hct MCHC RDW MCV MCH Lymph % (Auto) Wright % (Auto) Wright # Eos # Lymph # (Auto) Wright # (Auto) Eos # (Auto) Seg Neutrophils % Seg Neuts % (Manual) Baso # (Auto) Lymphocytes % (Manual) Monocytes % (Manual) Eosinophils % (Manual) Basophils % (Manual) Seg Neutrophils # Seg Neutrophils # Man Lymphocytes # (Manual) Monocytes # (Manual) Eosinophils # (Manual) Nucleated RBC % Basophils # (Manual) APTT Heparin Anti-Xa Level ABG pH POC ABG pO2 ABG pO2 ABG HCO3 ABG O2 Saturation ABG Base Excess POC ABG pCO2 ABG Hemoglobin ABG Oxyhemoglobin Oxyhemoglobin Sodium 151 H Potassium 3.4 L Chloride Carbon Dioxide 33 H BUN Creatinine 0.6 L Glucose 118 H POC Glucose 118 H 123 H Lactic Acid Calcium Phosphorus Magnesium AST ALT Lactate Dehydrogenase CK-MB (CK-2) C-Reactive Protein NT-Pro-B Natriuret Pep Total Protein 6.2 L Albumin 2.6 L Urine WBC (Auto) 01/06/20 01/07/20 01/07/20 17:54 00:06 04:10 WBC RBC 3.42 L Hgb 8.9 L Hct 29.0 L MCHC 31 L RDW 17.1 H MCV MCH 26 L Lymph % (Auto) Wright % (Auto) 8.4 H Wright # Eos # Lymph # (Auto) Wright # (Auto) Eos # (Auto) Seg Neutrophils % Seg Neuts % (Manual) Baso # (Auto) Lymphocytes % (Manual) Monocytes % (Manual) Eosinophils % (Manual) Basophils % (Manual) Seg Neutrophils # Seg Neutrophils # Man Lymphocytes # (Manual) Monocytes # (Manual) Eosinophils # (Manual) Nucleated RBC % Basophils # (Manual) APTT Heparin Anti-Xa Level ABG pH POC ABG pO2 ABG pO2 ABG HCO3 ABG O2 Saturation ABG Base Excess POC ABG pCO2 ABG Hemoglobin ABG Oxyhemoglobin Oxyhemoglobin Sodium Potassium Chloride Carbon Dioxide BUN Creatinine Glucose POC Glucose 112 H 126 H Lactic Acid Calcium Phosphorus Magnesium AST ALT Lactate Dehydrogenase CK-MB (CK-2) C-Reactive Protein NT-Pro-B Natriuret Pep Total Protein Albumin Urine WBC (Auto) 01/07/20 01/07/20 01/07/20 04:10 05:59 12:27 WBC RBC Hgb Hct MCHC RDW MCV MCH Lymph % (Auto) Wright % (Auto) Wright # Eos # Lymph # (Auto) Wright # (Auto) Eos # (Auto) Seg Neutrophils % Seg Neuts % (Manual) Baso # (Auto) Lymphocytes % (Manual) Monocytes % (Manual) Eosinophils % (Manual) Basophils % (Manual) Seg Neutrophils # Seg Neutrophils # Man Lymphocytes # (Manual) Monocytes # (Manual) Eosinophils # (Manual) Nucleated RBC % Basophils # (Manual) APTT Heparin Anti-Xa Level ABG pH POC ABG pO2 ABG pO2 ABG HCO3 ABG O2 Saturation ABG Base Excess POC ABG pCO2 ABG Hemoglobin ABG Oxyhemoglobin Oxyhemoglobin Sodium 153 H Potassium 3.5 L Chloride Carbon Dioxide 34 H BUN Creatinine 0.6 L Glucose 121 H POC Glucose 121 H 126 H Lactic Acid Calcium Phosphorus Magnesium AST ALT Lactate Dehydrogenase CK-MB (CK-2) C-Reactive Protein NT-Pro-B Natriuret Pep Total Protein 5.9 L Albumin 2.4 L Urine WBC (Auto) 01/07/20 01/08/20 01/08/20 18:12 00:03 05:41 WBC RBC Hgb Hct MCHC RDW MCV MCH Lymph % (Auto) Wright % (Auto) Wright # Eos # Lymph # (Auto) Wright # (Auto) Eos # (Auto) Seg Neutrophils % Seg Neuts % (Manual) Baso # (Auto) Lymphocytes % (Manual) Monocytes % (Manual) Eosinophils % (Manual) Basophils % (Manual) Seg Neutrophils # Seg Neutrophils # Man Lymphocytes # (Manual) Monocytes # (Manual) Eosinophils # (Manual) Nucleated RBC % Basophils # (Manual) APTT Heparin Anti-Xa Level ABG pH POC ABG pO2 ABG pO2 ABG HCO3 ABG O2 Saturation ABG Base Excess POC ABG pCO2 ABG Hemoglobin ABG Oxyhemoglobin Oxyhemoglobin Sodium Potassium Chloride Carbon Dioxide BUN Creatinine Glucose POC Glucose 124 H 130 H 138 H Lactic Acid Calcium Phosphorus Magnesium AST ALT Lactate Dehydrogenase CK-MB (CK-2) C-Reactive Protein NT-Pro-B Natriuret Pep Total Protein Albumin Urine WBC (Auto) 01/08/20 01/08/20 01/08/20 09:28 11:42 18:21 WBC RBC Hgb Hct MCHC RDW MCV MCH Lymph % (Auto) Wright % (Auto) Wright # Eos # Lymph # (Auto) Wright # (Auto) Eos # (Auto) Seg Neutrophils % Seg Neuts % (Manual) Baso # (Auto) Lymphocytes % (Manual) Monocytes % (Manual) Eosinophils % (Manual) Basophils % (Manual) Seg Neutrophils # Seg Neutrophils # Man Lymphocytes # (Manual) Monocytes # (Manual) Eosinophils # (Manual) Nucleated RBC % Basophils # (Manual) APTT Heparin Anti-Xa Level ABG pH POC ABG pO2 ABG pO2 ABG HCO3 ABG O2 Saturation ABG Base Excess POC ABG pCO2 ABG Hemoglobin ABG Oxyhemoglobin Oxyhemoglobin Sodium Potassium Chloride Carbon Dioxide BUN Creatinine Glucose POC Glucose 181 H 150 H 129 H Lactic Acid Calcium Phosphorus Magnesium AST ALT Lactate Dehydrogenase CK-MB (CK-2) C-Reactive Protein NT-Pro-B Natriuret Pep Total Protein Albumin Urine WBC (Auto) 01/08/20 01/08/20 01/09/20 19:25 23:55 04:11 WBC RBC 3.43 L Hgb 8.9 L Hct 28.7 L MCHC 31 L RDW 17.6 H MCV MCH 26 L Lymph % (Auto) Wright % (Auto) 8.6 H Wright # Eos # Lymph # (Auto) Wright # (Auto) Eos # (Auto) Seg Neutrophils % Seg Neuts % (Manual) Baso # (Auto) Lymphocytes % (Manual) Monocytes % (Manual) Eosinophils % (Manual) Basophils % (Manual) Seg Neutrophils # Seg Neutrophils # Man Lymphocytes # (Manual) Monocytes # (Manual) Eosinophils # (Manual) Nucleated RBC % Basophils # (Manual) APTT Heparin Anti-Xa Level ABG pH POC ABG pO2 ABG pO2 ABG HCO3 ABG O2 Saturation ABG Base Excess POC ABG pCO2 ABG Hemoglobin ABG Oxyhemoglobin Oxyhemoglobin Sodium Potassium Chloride Carbon Dioxide BUN Creatinine 0.7 L Glucose 117 H POC Glucose 132 H Lactic Acid Calcium Phosphorus Magnesium AST ALT Lactate Dehydrogenase CK-MB (CK-2) C-Reactive Protein NT-Pro-B Natriuret Pep Total Protein Albumin Urine WBC (Auto) 01/09/20 01/09/20 01/09/20 04:11 05:38 22:58 WBC RBC Hgb Hct MCHC RDW MCV MCH Lymph % (Auto) Wright % (Auto) Wright # Eos # Lymph # (Auto) Wright # (Auto) Eos # (Auto) Seg Neutrophils % Seg Neuts % (Manual) Baso # (Auto) Lymphocytes % (Manual) Monocytes % (Manual) Eosinophils % (Manual) Basophils % (Manual) Seg Neutrophils # Seg Neutrophils # Man Lymphocytes # (Manual) Monocytes # (Manual) Eosinophils # (Manual) Nucleated RBC % Basophils # (Manual) APTT Heparin Anti-Xa Level ABG pH POC ABG pO2 ABG pO2 ABG HCO3 ABG O2 Saturation ABG Base Excess POC ABG pCO2 ABG Hemoglobin ABG Oxyhemoglobin Oxyhemoglobin Sodium 147 H Potassium 3.3 L D Chloride Carbon Dioxide 32 H BUN Creatinine 0.6 L Glucose 106 H POC Glucose 107 H 113 H Lactic Acid Calcium Phosphorus Magnesium AST ALT Lactate Dehydrogenase CK-MB (CK-2) C-Reactive Protein NT-Pro-B Natriuret Pep Total Protein Albumin Urine WBC (Auto) 01/10/20 01/10/20 01/10/20 04:05 11:36 17:54 WBC RBC Hgb Hct MCHC RDW MCV MCH Lymph % (Auto) Wright % (Auto) Wright # Eos # Lymph # (Auto) Wright # (Auto) Eos # (Auto) Seg Neutrophils % Seg Neuts % (Manual) Baso # (Auto) Lymphocytes % (Manual) Monocytes % (Manual) Eosinophils % (Manual) Basophils % (Manual) Seg Neutrophils # Seg Neutrophils # Man Lymphocytes # (Manual) Monocytes # (Manual) Eosinophils # (Manual) Nucleated RBC % Basophils # (Manual) APTT Heparin Anti-Xa Level ABG pH POC ABG pO2 ABG pO2 ABG HCO3 ABG O2 Saturation ABG Base Excess POC ABG pCO2 ABG Hemoglobin ABG Oxyhemoglobin Oxyhemoglobin Sodium Potassium Chloride Carbon Dioxide BUN Creatinine 0.7 L Glucose 110 H POC Glucose 129 H 117 H Lactic Acid Calcium Phosphorus Magnesium AST ALT Lactate Dehydrogenase CK-MB (CK-2) C-Reactive Protein NT-Pro-B Natriuret Pep Total Protein Albumin Urine WBC (Auto) 01/10/20 01/11/20 01/11/20 23:52 03:19 12:09 WBC RBC Hgb Hct MCHC RDW MCV MCH Lymph % (Auto) Wright % (Auto) Wright # Eos # Lymph # (Auto) Wright # (Auto) Eos # (Auto) Seg Neutrophils % Seg Neuts % (Manual) Baso # (Auto) Lymphocytes % (Manual) Monocytes % (Manual) Eosinophils % (Manual) Basophils % (Manual) Seg Neutrophils # Seg Neutrophils # Man Lymphocytes # (Manual) Monocytes # (Manual) Eosinophils # (Manual) Nucleated RBC % Basophils # (Manual) APTT Heparin Anti-Xa Level ABG pH POC ABG pO2 ABG pO2 ABG HCO3 ABG O2 Saturation ABG Base Excess POC ABG pCO2 ABG Hemoglobin ABG Oxyhemoglobin Oxyhemoglobin Sodium Potassium Chloride Carbon Dioxide BUN Creatinine Glucose POC Glucose 117 H 136 H 115 H Lactic Acid Calcium Phosphorus Magnesium AST ALT Lactate Dehydrogenase CK-MB (CK-2) C-Reactive Protein NT-Pro-B Natriuret Pep Total Protein Albumin Urine WBC (Auto) 01/11/20 01/11/20 01/12/20 18:27 23:28 00:23 WBC RBC Hgb 9.8 L Hct 31.6 L MCHC 31 L RDW 17.8 H MCV 83 L MCH 26 L Lymph % (Auto) Wright % (Auto) 8.0 H Wright # Eos # Lymph # (Auto) Wright # (Auto) Eos # (Auto) Seg Neutrophils % Seg Neuts % (Manual) Baso # (Auto) Lymphocytes % (Manual) Monocytes % (Manual) Eosinophils % (Manual) Basophils % (Manual) Seg Neutrophils # Seg Neutrophils # Man Lymphocytes # (Manual) Monocytes # (Manual) Eosinophils # (Manual) Nucleated RBC % Basophils # (Manual) APTT Heparin Anti-Xa Level ABG pH POC ABG pO2 ABG pO2 ABG HCO3 ABG O2 Saturation ABG Base Excess POC ABG pCO2 ABG Hemoglobin ABG Oxyhemoglobin Oxyhemoglobin Sodium Potassium Chloride Carbon Dioxide BUN Creatinine Glucose POC Glucose 118 H 122 H Lactic Acid Calcium Phosphorus Magnesium AST ALT Lactate Dehydrogenase CK-MB (CK-2) C-Reactive Protein NT-Pro-B Natriuret Pep Total Protein Albumin Urine WBC (Auto) 01/12/20 01/12/20 01/12/20 00:23 04:18 04:18 WBC RBC Hgb 9.6 L Hct 30.9 L MCHC 31 L RDW 17.3 H MCV 81 L MCH 25 L Lymph % (Auto) Wright % (Auto) Wright # Eos # Lymph # (Auto) Wright # (Auto) Eos # (Auto) Seg Neutrophils % Seg Neuts % (Manual) Baso # (Auto) Lymphocytes % (Manual) Monocytes % (Manual) Eosinophils % (Manual) Basophils % (Manual) Seg Neutrophils # Seg Neutrophils # Man Lymphocytes # (Manual) Monocytes # (Manual) Eosinophils # (Manual) Nucleated RBC % Basophils # (Manual) APTT Heparin Anti-Xa Level ABG pH POC ABG pO2 ABG pO2 ABG HCO3 ABG O2 Saturation ABG Base Excess POC ABG pCO2 ABG Hemoglobin ABG Oxyhemoglobin Oxyhemoglobin Sodium Potassium Chloride Carbon Dioxide BUN Creatinine 0.7 L 0.7 L Glucose 111 H 108 H POC Glucose Lactic Acid Calcium Phosphorus Magnesium AST ALT Lactate Dehydrogenase CK-MB (CK-2) C-Reactive Protein NT-Pro-B Natriuret Pep Total Protein Albumin 2.6 L Urine WBC (Auto) 01/12/20 06:03 WBC RBC Hgb Hct MCHC RDW MCV MCH Lymph % (Auto) Wright % (Auto) Wright # Eos # Lymph # (Auto) Wright # (Auto) Eos # (Auto) Seg Neutrophils % Seg Neuts % (Manual) Baso # (Auto) Lymphocytes % (Manual) Monocytes % (Manual) Eosinophils % (Manual) Basophils % (Manual) Seg Neutrophils # Seg Neutrophils # Man Lymphocytes # (Manual) Monocytes # (Manual) Eosinophils # (Manual) Nucleated RBC % Basophils # (Manual) APTT Heparin Anti-Xa Level ABG pH POC ABG pO2 ABG pO2 ABG HCO3 ABG O2 Saturation ABG Base Excess POC ABG pCO2 ABG Hemoglobin ABG Oxyhemoglobin Oxyhemoglobin Sodium Potassium Chloride Carbon Dioxide BUN Creatinine Glucose POC Glucose 128 H Lactic Acid Calcium Phosphorus Magnesium AST ALT Lactate Dehydrogenase CK-MB (CK-2) C-Reactive Protein NT-Pro-B Natriuret Pep Total Protein Albumin Urine WBC (Auto) Chest x-ray: other (none today) Allied health notes reviewed: nursing
[2020-01-12] MEDS ORDERED: GLYCOPYRROLATE 0.4 MG/2 ML INJ IV STA (12:01)
--- NOTE | 2020-01-12 15:06 | Progress Note ---
Assessment and Plan -Partial SBO, resolved -Acute LLL PE -Acute RLE DVT -Persistent fevers; secondary to sepsis and acute PE/DVT -Severe sepsis; secondary to bilateral pneumonia, persistent fevers -Acute hypoxemic respiratory failure, on vent unable to wean -Bilateral pneumonia, community acquired, -Aspiration Pneumonia -Sustained SVT, on amiodarone -Acute on chronic systolic congestive heart failure -History of cerebrovascular accident. -Tobacco use disorder -Alcohol abuse with DT -Acute chronic obstructive pulmonary disease exacerbation. -Hypertension and hypertensive urgency at presentation. -History of arthritis. -Paroxysmal atrial fibrillation -Leukocytosis with possible sepsis. -Lactic acidosis. -Bleeding from ET tube -Oropharyngeal dysphagia -S/P Knee surgery -History of peptic Ulcer Surgery -DVT prophylaxis COVID-19 test; 11/24/2019; negative 11/26/2019; negative Plan Continue ventilatory support - Now s/p trach and PEG Aspiration precautions Continue to adjust amiodarone and metoprolol for suppression of paroxysmal atrial fibrillation. Continue anticoagulation Started back on vancomycin and zosyn BC 03/28 - coag negative staph ?contaminant. Sputum cultures pending. Low-dose Lasix as needed DVT/GI prophy Heparin/Protonix Plan of care reviewed with the patient's nurse BS consulted for partial SBO Closely monitor the patient and adjust management as needed The high probability of a clinically significant, sudden or life threatening deterioration of the [Respiratory, cardiovascular & neurological] system(s) required my full and direct attention, intervention and personal management. The aggregate critical care time was [33] minutes without overlap. Time includes spent on [x] Data Review and interpretation [x] Patient assessment and monitoring of vital signs [x] Documentation [x] Medication orders and management Brief History Patient is a 64-year-old male with known history of hypertension, COPD, history of coronary artery disease, CHF with ejection fraction of 20 to 25% in August 2018 presenting to the emergency room via EMS complaining of shortness of breath. Patient was found to be hypoxic and in respiratory distress. Patient was placed on CPAP in route to the hospital. Oxygen saturation was said to be 88%. Started on Solu-Medrol, Lasix and magnesium in ED, patient was also found to be lethargic with an oxygen saturation of about 91% on CPAP. He was subsequently intubated. Work-up in the emergency room including chest x-ray reveals bilateral pneumonia. He had an elevated white count of 14 and also had an elevated BNP. Patient admitted to the ICU and placed on empiric IV antibiotics for pneumonia. He tested negative for COVID-19 and placed on isolation precautions. Remains intubated on ventilatory support, sputum cultures positive for Pseudomonas, ID treated with cefepime and Vanco. His hospital course became complicated with acute PE, DVT, paroxysmal atrial fib - placed on chronic anticoagulation. P atient was difficult to wean off, status post trach and PEG, remains on mechanical ventilation with trach tube. He then developed partial small bowel obstruction and not tolerating tube feeding. Placed on NG suction, general surgery following. Symptom improved with medical Mx, TF restarted. 11/25: Leukocytosis improving. Continue current management anticipate extubation possible today. 11/26. Still intubated. Failed SBT yesterday. Repeat COVID-19 test is negative. 11/27. CT head ordered for possible neuro status change is negative. More responsive as the day progressed as per RN. Chest xray today shows interval improvement. He is still on antibiotics - will complete regimen today. 11/28: Considering difficult extubation and severe cardiomyopathy, will obtain cardiology consult. Aspiration precautions, tube feeds held, continue antibiotics. 11/29: Still with intermittent fever but improving imaging, continue diuresis. 11/30; Extremely agitated when placed on PSV- SVT, hypertension. Patiet ac knowledged that he drinks. IV Ativan given, CIWA protocol initiated. 12 lead ordered showed SVT, one dose of amiodarone ordered. continue to follow up cardiology recommendation 12/01: Patient remains on mechanical ventilation, getting SBT trial. Remains in SVT, started on amiodarone drip by cardiology. 12/02; patient is on mechanical ventilation and on spontaneous breathing trial. Cardiology started the patient on PO amiodarone. Patient is on cefepime. 12/03: patient is on mechanical ventilation. Cardiology started the patient on PO amiodarone for SVT. Patient is on cefepime, no fever overnight. 12/04: Patient is sedated and on mechanical ventilation. Patient had fever yesterday afternoon 102.3, ID changed his cefepime to meropenem. Heart rate is controlled, cardiology is following. Patient has paroxysmal atrial fibrillation and on amiodarone and metoprolol, subcu heparin for anticoagulation and will need oral anticoagulation once stable. 12/05: Sputum cultures positive for Pseudomonas, ID following 12/06; patient is febrile T-max 24 hours 102 F ,ID change antibiotics to cefepime and Vancomycin 12/07: resumed care. Na 149 today, start on 1/2 NS. cont current care 12/08: remains in a stable sinus rhythm and stable blood pressure, continue supportive care. wean off vent as tolerated. persistent fever - ordered CTA chest 12/09: noted bloody discharges from ET tube last night. CTA and LE venous doppler positive for acute PE and DVT. resume heparin drip, consult vascular for poss ible EKOS/ IVC filter. monitor h/h. cont SBT trial, wean off vent as tolerated. called but no answer 12/10: cont heparin drip for acute PE and DVT, follow vascular recommendation. monitor h/h, wean off vent as tolerated 12/11: o/n had bleeding from ET tube, cont to monitor h/h. vascular recommending medical Mx. called ; Nicolle Araiza [phone]. 12/12: H&H remained stable, patient on heparin drip. Discussed with yesterday. Discussed with critical care attending. Patient not tolerating SBT trial. Continue to wean off from vent as tolerated, follow clinically. Tolerating tube feeding 12/13: Continue heparin drip, wean off from vent as tolerated. Discussed with pulmonary attending if no improvement by the end of 3 weeks of intubation patient may need trach and PEG. Continue to provide supportive care, follow CBC and BMP. 12/14: Stop cefepime today, wean off from vent as tolerated. cont Heparin infusion, while monitoring for bleeding 12/15: Patient is not tolerating SBT trial, becoming apnic on CPAP. May need to place on trach and PEG. Continue heparin drip, monitor off antibiotics 12/16. Still maintained on vent. May need PEG and trach as her has been failed SBTs 12/17. Had low UO overnight. Started on tamsulosin. May need PEG and trach - defer to pulm. 12/18-. Plan for US thoracentesis to help with weaning. Remains on heparin drip for VTE. 12/20. Discussed with spouse today. He will get thoracentesis today. INR/PTT ordered. Heparin drip held. 12/21: planned for trach and PEG, cont supportive care, thoracentesis cancelled 12/22: cont supportive care, wean off from vent, daily SBT 12/23: tolerating SBT, possible extubation soon. cont supportive care 12/24: wean off vent as tolerated, daily SBT, follow clinically 12/25; cont to monitor, wean off vent as tolerated 12/26: Continue to monitor wean off vent as tolerated patient is tolerating SBT trial but not ready to wean off. 12/27: need trach and PEG, will f/u with GS, cont supportive care 12/28: pending trach/PEG 12/29: plan for trach and PEG on Saturday 12/30: Plan for trach and PEG. Temp 101F. Blood cultures, urinalysis and chest xray ordered. 12/31. Had afib with RVR overnight. Metoprolol dose has been increased. He is still on amiodarone. Plan for PEG tube placement today. Repeat chest x-ray shows worsening infiltrates. Started on the Lasix. Monitor fever now. Blood cultures negative so far. Urinalysis pending 01/01. Started on antibiotics as he had another fever. On vancomycin and zosyn. ID consulted. HR still in the 100s. Had trach and PEG placement on 12/31 with no complications. BC 03/28 - Coag negative staph? contaminant. 01/02. On antibiotics. ID consulted. HR still high. Cardiology adjusting HR control medications. 01/03. HR better. Heparin switched to DOAC. HR better. Started on bumex 01/04: c/o abdominal pain, not tolerating TF, had projectile vomiting few times. Abd xry/CT abd suggestive of partial SBO, reconsult surgery, place NG with suction, start iv fluid. 01/05; Pt stable. NGT output 650cc over 24 hours, bilious. No f/c, WBC within normal limits. cont NG suction and cont to hold TF 01/06: Abs series - mild improvement in small bowel distension in mid abdomen, normal gas/stool pattern in colon. NGT in duodenum. Continue to hold tube feeding, maintain NG tube with low intermittent suction. Patient's was updated by phone. Continue to provide supportive care and monitor clinically. 01/07: +BMs today and NGT/PEG output appears more gastric today. Plan to clamp NGT, if tolerates start TF from tomorrow. cont supportive care. 01/08; Gastric output decreased over last 24 hours. NGT has been clamped x 24 hours. plan to dc NGT and to start TTF via PEG - vital HF @10cc/hr 01/09: clinically stable, tolerating TF. monitor BMP, wean off from vent as tolerated clinically stable, on TF. wean off vent as tolerated 01/11: wean off from vent, cont to monitor, on TF Subjective Date of service: 01/12/20 Principal diagnosis: Ac hypoxemic resp failure; Pneumonia; PUI COVID-19; CHF; COPD; HTN Interval history: Patient seen and examined Patient intubated on trach Discussed with RN at the bedside H/H STABLE, Objective - Exam Narrative Exam: General appearance: Present: well-nourished, opens eyes to names and follows minor command - EENT Eyes: Present: PERRL, EOM intact. Absent: scleral icterus ENT: clear oral mucosa, dentition normal - Neck Neck: Present: supple, normal ROM, trach on place - Respiratory Respiratory effort: normal, mechanical ventilation with trach Respiratory: bilateral: rales - Cardiovascular Rhythm: regular Heart Sounds: Present: S1 & S2, tachycardic. Absent: gallop, systolic murmur, diastolic murmur, rub - Extremities Extremities: no ischemia, pulses intact, pulses symmetrical, No edema, Full ROM Peripheral Pulses: within normal limits - Abdominal General gastrointestinal: Present: soft, nondistended, + bowel sounds. - Integumentary Integumentary: Present: clear, warm, dry. Absent: rash - Musculoskeletal Musculoskeletal: no joint swelling - Psychiatric Psychiatric: no agitation Neurology: no focal deficits - Constitutional Vitals: Vital Signs - 12hr 01/12/20 01/12/20 01/12/20 03:15 03:30 03:45 Temperature Pulse Rate 85 86 84 Pulse Rate [ From Monitor] Respiratory 20 21 22 Rate Blood Pressure 107/76 107/75 100/74 O2 Sat by Pulse 98 98 98 Oximetry O2 Sat by Pulse Oximetry [ Assessment] 01/12/20 01/12/20 01/12/20 03:57 04:00 04:15 Temperature 98.4 F Pulse Rate 85 87 Pulse Rate [ 88 From Monitor] Respiratory 19 16 Rate Blood Pressure 111/82 117/80 O2 Sat by Pulse 97 98 Oximetry O2 Sat by Pulse 99 Oximetry [ Assessment] 01/12/20 01/12/20 01/12/20 04:23 04:31 04:45 Temperature Pulse Rate 88 89 98 H Pulse Rate [ From Monitor] Respiratory 21 18 Rate Blood Pressure 117/80 117/80 117/80 O2 Sat by Pulse 98 98 99 Oximetry O2 Sat by Pulse Oximetry [ Assessment] 01/12/20 01/12/20 01/12/20 05:00 05:15 05:30 Temperature Pulse Rate 92 H 89 83 Pulse Rate [ From Monitor] Respiratory 22 20 19 Rate Blood Pressure 123/81 122/78 118/75 O2 Sat by Pulse 98 97 97 Oximetry O2 Sat by Pulse Oximetry [ Assessment] 01/12/20 01/12/20 01/12/20 05:45 06:00 06:15 Temperature Pulse Rate 87 91 H 87 Pulse Rate [ From Monitor] Respiratory 19 21 20 Rate Blood Pressure 115/80 125/84 116/83 O2 Sat by Pulse 98 100 99 Oximetry O2 Sat by Pulse Oximetry [ Assessment] 01/12/20 01/12/20 01/12/20 06:30 06:45 07:00 Temperature Pulse Rate 86 85 84 Pulse Rate [ From Monitor] Respiratory 21 21 19 Rate Blood Pressure 122/79 117/76 122/74 O2 Sat by Pulse 99 99 99 Oximetry O2 Sat by Pulse Oximetry [ Assessment] 01/12/20 01/12/20 01/12/20 07:15 07:30 07:45 Temperature Pulse Rate 84 83 83 Pulse Rate [ From Monitor] Respiratory 19 21 24 Rate Blood Pressure 111/74 112/73 113/77 O2 Sat by Pulse 100 99 99 Oximetry O2 Sat by Pulse Oximetry [ Assessment] 01/12/20 01/12/20 01/12/20 08:00 08:15 08:30 Temperature 98.3 F Pulse Rate 82 83 89 Pulse Rate [ 80 From Monitor] Respiratory 17 21 26 H Rate Blood Pressure 103/73 113/77 119/79 O2 Sat by Pulse 97 99 100 Oximetry O2 Sat by Pulse Oximetry [ Assessment] 01/12/20 01/12/20 01/12/20 08:33 08:45 09:00 Temperature Pulse Rate 85 94 H 88 Pulse Rate [ From Monitor] Respiratory 22 14 23 Rate Blood Pressure 119/79 130/79 117/81 O2 Sat by Pulse 100 97 96 Oximetry O2 Sat by Pulse Oximetry [ Assessment] 01/12/20 01/12/20 01/12/20 09:15 09:30 09:45 Temperature Pulse Rate 82 82 87 Pulse Rate [ From Monitor] Respiratory 24 23 22 Rate Blood Pressure 115/76 111/75 118/76 O2 Sat by Pulse 94 94 96 Oximetry O2 Sat by Pulse Oximetry [ Assessment] 01/12/20 01/12/20 01/12/20 10:00 10:02 10:15 Temperature Pulse Rate 87 87 85 Pulse Rate [ From Monitor] Respiratory 24 24 Rate Blood Pressure 120/75 120/75 124/81 O2 Sat by Pulse 95 96 Oximetry O2 Sat by Pulse Oximetry [ Assessment] 01/12/20 01/12/20 01/12/20 10:30 10:45 11:00 Temperature Pulse Rate 95 H 84 83 Pulse Rate [ From Monitor] Respiratory 21 23 24 Rate Blood Pressure 127/85 116/69 106/73 O2 Sat by Pulse 97 94 97 Oximetry O2 Sat by Pulse Oximetry [ Assessment] 01/12/20 01/12/20 01/12/20 11:15 11:16 11:30 Temperature Pulse Rate 85 86 89 Pulse Rate [ From Monitor] Respiratory 21 18 21 Rate Blood Pressure 105/75 105/75 113/73 O2 Sat by Pulse 96 98 97 Oximetry O2 Sat by Pulse Oximetry [ Assessment] 01/12/20 01/12/20 01/12/20 11:45 12:00 12:15 Temperature 98.1 F Pulse Rate 95 H 87 87 Pulse Rate [ 87 From Monitor] Respiratory 21 25 H 25 H Rate Blood Pressure 117/83 122/78 117/71 O2 Sat by Pulse 97 94 93 Oximetry O2 Sat by Pulse Oximetry [ Assessment] 01/12/20 01/12/20 01/12/20 12:30 12:45 13:00 Temperature Pulse Rate 81 81 82 Pulse Rate [ From Monitor] Respiratory 21 19 21 Rate Blood Pressure 103/70 97/69 97/69 O2 Sat by Pulse 93 94 95 Oximetry O2 Sat by Pulse Oximetry [ Assessment] 01/12/20 01/12/20 01/12/20 13:15 13:30 13:45 Temperature Pulse Rate 82 82 85 Pulse Rate [ From Monitor] Respiratory 20 19 21 Rate Blood Pressure 100/68 100/69 108/71 O2 Sat by Pulse 95 99 96 Oximetry O2 Sat by Pulse Oximetry [ Assessment] - Labs CBC & Chem 7: 01/12/20 04:18 01/12/20 04:18 Labs: Abnormal lab results 01/11/20 01/11/20 01/12/20 Range/Units 18:27 23:28 00:23 Hgb 9.8 L (11.8-15.2) gm/dl Hct 31.6 L (35.5-45.6) % MCV 83 L (84-94) fl MCH 26 L (28-32) pg MCHC 31 L (32-34) % RDW 17.8 H (13.2-15.2) % Mccormick % (Auto) 8.0 H (0.0-7.3) % ABG pH (7.320-7.450) POC ABG pO2 (83-108) mmHg ABG Hemoglobin (12.0-17.5) ABG Glucose (65-95) mg/dL Creatinine (0.8-1.3) mg/dL Glucose (75-100) mg/dL POC Glucose 118 H 122 H (70-105) Albumin (3.9-5) g/dL Arterial Blood Glucose (65-95) mg/dL 01/12/20 01/12/20 01/12/20 Range/Units 00:23 04:18 04:18 Hgb 9.6 L (11.8-15.2) gm/dl Hct 30.9 L (35.5-45.6) % MCV 81 L (84-94) fl MCH 25 L (28-32) pg MCHC 31 L (32-34) % RDW 17.3 H (13.2-15.2) % Mccormick % (Auto) (0.0-7.3) % ABG pH (7.320-7.450) POC ABG pO2 (83-108) mmHg ABG Hemoglobin (12.0-17.5) ABG Glucose (65-95) mg/dL Creatinine 0.7 L 0.7 L (0.8-1.3) mg/dL Glucose 111 H 108 H (75-100) mg/dL POC Glucose (70-105) Albumin 2.6 L (3.9-5) g/dL Arterial Blood Glucose (65-95) mg/dL 01/12/20 01/12/20 Range/Units 06:03 13:58 Hgb (11.8-15.2) gm/dl Hct (35.5-45.6) % MCV (84-94) fl MCH (28-32) pg MCHC (32-34) % RDW (13.2-15.2) % Mccormick % (Auto) (0.0-7.3) % ABG pH 7.453 H (7.320-7.450) POC ABG pO2 76.6 L (83-108) mmHg ABG Hemoglobin 10.3 L (12.0-17.5) ABG Glucose 99 H (65-95) mg/dL Creatinine (0.8-1.3) mg/dL Glucose (75-100) mg/dL POC Glucose 128 H (70-105) Albumin (3.9-5) g/dL Arterial Blood Glucose 99 H (65-95) mg/dL HEART Score - HEART Score Troponin: Troponin T < 0.010 ng/mL (0.00-0.029) 11/24/19 02:53
--- NOTE | 2020-01-12 16:18 | Progress Note ---
Assessment and Plan 64 yo M with pSBO vs ileus Plan: 1. Orders written to adv TF yesterday but not done. Discussed with patient's RN today and TF will be advanced to a goal of 70cc slowly as ordered. 2. continue bowel regimen as ordered 3. IVF per 1' service 4. monitor lytes and replace as needed 5. Recommend OOB to chair if possible Thank you. Please call with questions. Subjective Date of service: 01/12/20 Narrative: Pt seen and examined. Agitated and restless this am per RN notes. Patient calm now without complaints. Had two BMs over night. No f/c. Continues to figueroa TF @20cc/hr. Objective Vital Signs - 12hr 01/12/20 01/12/20 01/12/20 04:23 04:31 04:45 Temperature Pulse Rate 88 89 98 H Pulse Rate [ From Monitor] Respiratory 21 18 Rate Blood Pressure 117/80 117/80 117/80 O2 Sat by Pulse 98 98 99 Oximetry 01/12/20 01/12/20 01/12/20 05:00 05:15 05:30 Temperature Pulse Rate 92 H 89 83 Pulse Rate [ From Monitor] Respiratory 22 20 19 Rate Blood Pressure 123/81 122/78 118/75 O2 Sat by Pulse 98 97 97 Oximetry 01/12/20 01/12/20 01/12/20 05:45 06:00 06:15 Temperature Pulse Rate 87 91 H 87 Pulse Rate [ From Monitor] Respiratory 19 21 20 Rate Blood Pressure 115/80 125/84 116/83 O2 Sat by Pulse 98 100 99 Oximetry 01/12/20 01/12/20 01/12/20 06:30 06:45 07:00 Temperature Pulse Rate 86 85 84 Pulse Rate [ From Monitor] Respiratory 21 21 19 Rate Blood Pressure 122/79 117/76 122/74 O2 Sat by Pulse 99 99 99 Oximetry 01/12/20 01/12/20 01/12/20 07:15 07:30 07:45 Temperature Pulse Rate 84 83 83 Pulse Rate [ From Monitor] Respiratory 19 21 24 Rate Blood Pressure 111/74 112/73 113/77 O2 Sat by Pulse 100 99 99 Oximetry 01/12/20 01/12/20 01/12/20 08:00 08:15 08:30 Temperature 98.3 F Pulse Rate 82 83 89 Pulse Rate [ 80 From Monitor] Respiratory 17 21 26 H Rate Blood Pressure 103/73 113/77 119/79 O2 Sat by Pulse 97 99 100 Oximetry 01/11/20 10/20/20 20 08:33 08:45 09:00 Temperature Pulse Rate 85 94 H 88 Pulse Rate [ From Monitor] Respiratory 22 14 23 Rate Blood Pressure 119/79 130/79 117/81 O2 Sat by Pulse 100 97 96 Oximetry 01/11/20 10/20/20 102020 09:15 09:30 09:45 Temperature Pulse Rate 82 82 87 Pulse Rate [ From Monitor] Respiratory 24 23 22 Rate Blood Pressure 115/76 111/75 118/76 O2 Sat by Pulse 94 94 96 Oximetry 01/11/20 01/11/20 20 10:00 10:02 10:15 Temperature Pulse Rate 87 87 85 Pulse Rate [ From Monitor] Respiratory 24 24 Rate Blood Pressure 120/75 120/75 124/81 O2 Sat by Pulse 95 96 Oximetry 01/11/20 01/11/20 20 10:30 10:45 11:00 Temperature Pulse Rate 95 H 84 83 Pulse Rate [ From Monitor] Respiratory 21 23 24 Rate Blood Pressure 127/85 116/69 106/73 O2 Sat by Pulse 97 94 97 Oximetry 01/11/20 //20 20 11:15 11:16 11:30 Temperature Pulse Rate 85 86 89 Pulse Rate [ From Monitor] Respiratory 21 18 21 Rate Blood Pressure 105/75 105/75 113/73 O2 Sat by Pulse 96 98 97 Oximetry 01/11/20 01/11/20 1020 11:45 12:00 12:15 Temperature 98.1 F Pulse Rate 95 H 87 87 Pulse Rate [ 87 From Monitor] Respiratory 21 25 H 25 H Rate Blood Pressure 117/83 122/78 117/71 O2 Sat by Pulse 97 94 93 Oximetry 01/11/20 10/20/20 1020/20 12:30 12:45 13:00 Temperature Pulse Rate 81 81 82 Pulse Rate [ From Monitor] Respiratory 21 19 21 Rate Blood Pressure 103/70 97/69 97/69 O2 Sat by Pulse 93 94 95 Oximetry 20/20 10/20/20 10/20/20 13:15 13:30 13:45 Temperature Pulse Rate 82 82 85 Pulse Rate [ From Monitor] Respiratory 20 19 21 Rate Blood Pressure 100/68 100/69 108/71 O2 Sat by Pulse 95 99 96 Oximetry 01/12/20 01/12/20 01/12/20 14:00 14:15 14:30 Temperature Pulse Rate 81 81 82 Pulse Rate [ From Monitor] Respiratory 21 21 20 Rate Blood Pressure 102/67 101/68 105/68 O2 Sat by Pulse 95 98 96 Oximetry 01/12/20 01/12/20 01/12/20 14:45 15:00 15:15 Temperature Pulse Rate 83 82 83 Pulse Rate [ From Monitor] Respiratory 21 21 21 Rate Blood Pressure 99/71 106/66 101/72 O2 Sat by Pulse 96 97 96 Oximetry 01/12/20 15:16 Temperature Pulse Rate 82 Pulse Rate [ From Monitor] Respiratory Rate Blood Pressure 101/72 O2 Sat by Pulse Oximetry - General physical appearance Narrative Exam: Gen: Sleeping but arousable. NAD ENT: Trach in place, site c/d/i CV: S1, S2+ Resp: even and unlabored Abd: soft, protuberant, ND, NT. TF running via PEG Ext: edema - Labs 01/12/20 04:18 01/12/20 04:18 Diabetes panel 01/12/20 01/12/20 Range/Units 00:23 04:18 Sodium 144 143 (137-145) mmol/L Potassium 3.6 3.8 (3.6-5.0) mmol/L Chloride 102.9 100.8 (98-107) mmol/L Carbon Dioxide 29 28 (22-30) mmol/L BUN 11 11 (9-20) mg/dL Creatinine 0.7 L 0.7 L (0.8-1.3) mg/dL Glucose 111 H 108 H (75-100) mg/dL Calcium 8.8 8.8 (8.4-10.2) mg/dL AST 16 (5-40) units/L ALT 22 (7-56) units/L Alkaline Phosphatase 59 (35-129) units/L Total Protein 6.3 (6.3-8.2) g/dL Albumin 2.6 L (3.9-5) g/dL Calcium panel 01/12/20 01/12/20 01/12/20 Range/Units 00:23 04:18 12:01 Calcium 8.8 8.8 (8.4-10.2) mg/dL Phosphorus 3.40 (2.5-4.5) mg/dL Albumin 2.6 L (3.9-5) g/dL Pituitary panel 01/12/20 01/12/20 Range/Units 00:23 04:18 Sodium 144 143 (137-145) mmol/L Potassium 3.6 3.8 (3.6-5.0) mmol/L Chloride 102.9 100.8 (98-107) mmol/L Carbon Dioxide 29 28 (22-30) mmol/L BUN 11 11 (9-20) mg/dL Creatinine 0.7 L 0.7 L (0.8-1.3) mg/dL Glucose 111 H 108 H (75-100) mg/dL Calcium 8.8 8.8 (8.4-10.2) mg/dL Adrenal panel 01/12/20 01/12/20 Range/Units 00:23 04:18 Sodium 144 143 (137-145) mmol/L Potassium 3.6 3.8 (3.6-5.0) mmol/L Chloride 102.9 100.8 (98-107) mmol/L Carbon Dioxide 29 28 (22-30) mmol/L BUN 11 11 (9-20) mg/dL Creatinine 0.7 L 0.7 L (0.8-1.3) mg/dL Glucose 111 H 108 H (75-100) mg/dL Calcium 8.8 8.8 (8.4-10.2) mg/dL Total Bilirubin 0.50 (0.1-1.2) mg/dL AST 16 (5-40) units/L ALT 22 (7-56) units/L Alkaline Phosphatase 59 (35-129) units/L Total Protein 6.3 (6.3-8.2) g/dL Albumin 2.6 L (3.9-5) g/dL
[2020-01-12] MEDS: TAMSULOSIN 0.4 MG CAP PO SCH (21:42)
[2020-01-12] MEDS: GLYCOPYRROLATE 2 MG TAB PO SCH (21:42)
[2020-01-12] MEDS: POLYETHYLENE GLYCOL 3350 17 GM POWDER PO SCH (21:43)
[2020-01-13] MEDS: ACETAMINOPHEN 325 MG/10.15 ML ORAL LIQD UNIT DOSE FEEDTUBE PRN ×3 (02:41→19:16)
[2020-01-13] MEDS: METOPROLOL TARTRATE 25 MG TAB PO SCH ×4 (02:46→19:15)
[2020-01-13] MEDS: AMIODARONE 200 MG TAB PO SCH ×2 (09:36→22:33)
[2020-01-13] MEDS: APIXABAN 5 MG TAB PO SCH ×2 (09:36→22:33)
[2020-01-13] MEDS: GLYCOPYRROLATE 2 MG TAB PO SCH ×2 (09:36→22:09)
[2020-01-13] MEDS: DOCUSATE SODIUM 100 MG/10 ML ORAL LIQD FEEDTUBE SCH ×2 (09:36→22:33)
[2020-01-13] MEDS: FAMOTIDINE 20 MG TAB PO SCH ×2 (09:36→22:33)
[2020-01-13] MEDS: QUEtiapine 200 MG TAB PO SCH (09:36)
--- NOTE | 2020-01-13 09:51 | Progress Note ---
Assessment and Plan Atrial fibrillation, paroxysmal on amiodarone and metoprolol currently in sinus rhythm Ischemic Cardiomyopathy re-echo this presentation reports an LVEF 40-45%. echo 08/2018: decreased LVEF 20-25%. Hx of CAD [facility] 12/2018: mild in-stent restenosis. No significant residual disease. Multifocal pneumonia negative COVID-19 test x 2 Chronic Respiratory failure s/p trach and mechanically ventilated History of COPD Acute PE/DVT -initiated on Eliquis Anemia Partial SBO vs ileus Recommendations: Continue amiodarone and metoprolol for paroxysmal atrial fibrillation. Otherwise, conservative cardiac management. Subjective Date of service: 01/13/20 Principal diagnosis: Ac hypoxemic resp failure; Pneumonia; PUI COVID-19; CHF; COPD; HTN Interval history: Stable sinus rhythm on telemetry. Objective Vital Signs Temp Pulse Pulse Resp Resp BP Pulse Ox 01/13/20 08:36 01/13/20 08:35 95 01/13/20 08:34 95 H 119/80 95 01/13/20 08:30 97 H 23 119/80 01/13/20 08:15 78 20 102/64 97 01/13/20 08:00 84 84 23 20 102/70 99 01/13/20 07:46 97.7 F 01/13/20 07:45 86 20 108/73 100 01/13/20 07:30 83 21 99/69 100 01/13/20 07:15 77 16 96/63 100 01/13/20 07:00 63 22 95/59 95 01/13/20 06:45 65 18 94/55 95 01/13/20 06:39 65 97/55 01/13/20 06:30 65 21 97/55 97 01/13/20 06:15 68 18 105/63 96 01/13/20 06:00 82 20 102/72 97 01/13/20 05:45 76 17 93/65 100 01/13/20 05:30 79 20 98/70 100 01/13/20 05:15 75 26 H 95/62 01/13/20 05:00 77 24 97/67 99 01/13/20 04:45 77 24 95/64 99 01/13/20 04:30 77 23 96/67 100 01/13/20 04:24 77 96/57 100 01/13/20 04:15 73 19 96/57 98 01/13/20 04:00 62 19 99/57 94 01/13/20 03:51 62 16 100 01/13/20 03:50 98.8 F 01/13/20 03:48 64 15 01/13/20 03:45 63 17 97/57 95 01/13/20 03:30 69 22 90/60 95 01/13/20 03:15 67 20 96/59 96 01/13/20 03:00 69 20 99/58 96 01/13/20 02:45 71 17 109/69 96 01/13/20 02:41 21 01/13/20 02:30 81 21 110/73 99 01/13/20 02:25 01/13/20 02:15 82 20 106/74 99 01/13/20 02:00 87 21 101/71 99 01/13/20 01:45 60 21 94/62 96 01/13/20 01:30 56 L 23 92/60 95 01/13/20 01:15 57 L 23 94/59 94 01/13/20 01:00 58 L 23 95/58 94 01/13/20 00:45 60 19 96/61 96 01/13/20 00:30 59 L 25 H 105/67 99 01/13/20 00:15 76 19 97/70 100 01/13/20 00:07 69 96/63 100 01/13/20 00:00 71 71 25 H 23 96/63 100 01/12/20 23:59 98.5 F 01/12/20 23:45 73 20 94/67 100 01/12/20 23:30 74 23 93/68 99 01/12/20 23:15 76 21 93/67 99 01/12/20 23:00 78 24 99/69 99 20 22:45 75 22 94/66 20 22:30 75 28 H 98/68 01/12/20 22:15 77 24 97/69 100 01/12/20 22:00 78 18 97/67 100 2020 21:45 76 23 98/64 100 01/12/20 21:30 56 L 22 96/60 95 20 21:15 60 22 100/61 95 20 21:00 63 21 100/64 96 01/12/20 20:45 76 18 100/70 100 10/20/20 20:30 83 19 107/76 10/20/20 20:24 83 98/71 10/20/20 20:21 83 98/71 100 10/20/20 20:15 79 22 98/71 99 10/20/20 20:09 98.4 F 10/20/20 20:00 77 84 24 20 94/70 99 10/20/20 19:45 79 21 102/71 99 10/20/20 19:30 79 26 H 102/69 97 10/20/20 19:15 84 20 107/75 99 10/20/20 19:00 86 23 103/75 98 10/20/20 18:45 76 25 H 94/66 97 10/20/20 18:30 71 21 99/62 96 10/20/20 18:15 66 21 103/65 95 10/20/20 18:00 65 22 102/63 96 10/20/20 17:45 77 19 99/68 99 10/20/20 17:42 10/20/20 17:38 81 96/70 98 10/20/20 17:30 83 22 96/70 97 10/20/20 17:15 82 20 105/73 96 10/20/20 17:00 83 22 101/68 96 10/20/20 16:45 83 22 104/67 95 10/20/20 16:30 83 21 106/63 96 10/20/20 16:15 84 21 105/75 98 10/20/20 16:00 98.6 F 82 82 22 104/73 96 10/20/20 15:45 82 21 100/69 95 10/20/20 15:30 83 20 103/70 96 10/20/20 15:16 82 101/72 10/20/20 15:15 83 21 101/72 96 10/20/20 15:00 82 21 106/66 97 10/20/20 14:45 83 21 99/71 96 10/20/20 14:30 82 20 105/68 96 10/20/20 14:15 81 21 101/68 98 10/20/20 14:00 81 21 102/67 95 10/20/20 13:45 85 21 108/71 96 10/20/20 13:30 82 19 100/69 99 10/20/20 13:15 82 20 100/68 95 10/20/20 13:00 82 21 97/69 95 01/12/20 12:45 81 19 97/69 94 01/12/20 12:30 81 21 103/70 93 01/12/20 12:15 87 25 H 117/71 93 01/12/20 12:00 98.1 F 87 87 25 H 122/78 94 01/12/20 11:45 95 H 21 117/83 97 01/12/20 11:30 89 21 113/73 97 01/12/20 11:16 86 18 105/75 98 01/12/20 11:15 85 21 105/75 96 01/12/20 11:00 83 24 106/73 97 01/12/20 10:45 84 23 116/69 94 01/12/20 10:30 95 H 21 127/85 97 01/12/20 10:15 85 24 124/81 96 01/12/20 10:02 87 120/75 01/12/20 10:00 87 24 120/75 95 Pulse Ox 01/13/20 08:36 95 01/13/20 08:35 01/13/20 08:34 01/13/20 08:30 01/13/20 08:15 01/13/20 08:00 01/13/20 07:46 01/13/20 07:45 01/13/20 07:30 01/13/20 07:15 01/13/20 07:00 01/13/20 06:45 01/13/20 06:39 01/13/20 06:30 01/13/20 06:15 01/13/20 06:00 01/13/20 05:45 01/13/20 05:30 01/13/20 05:15 01/13/20 05:00 01/13/20 04:45 01/13/20 04:30 01/13/20 04:24 01/13/20 04:15 01/13/20 04:00 01/13/20 03:51 01/13/20 03:50 01/13/20 03:48 01/13/20 03:45 01/13/20 03:30 01/13/20 03:15 01/13/20 03:00 01/13/20 02:45 01/13/20 02:41 01/13/20 02:30 01/13/20 02:25 100 01/13/20 02:15 01/13/20 02:00 01/13/20 01:45 01/13/20 01:30 01/13/20 01:15 01/13/20 01:00 01/13/20 00:45 01/13/20 00:30 01/13/20 00:15 01/13/20 00:07 01/13/20 00:00 01/12/20 23:59 01/12/20 23:45 01/12/20 23:30 01/12/20 23:15 01/12/20 23:00 01/12/20 22:45 01/12/20 22:30 20 22:15 20 22:00 01/12/20 21:45 20 21:30 20 21:15 20 21:00 20 20:45 2020 20:30 2020 20:24 20 20:21 20 20:15 2020 20:09 2020 20:00 2020 19:45 2020 19:30 2020 19:15 2020 19:00 20 18:45 2020 18:30 2020 18:15 2020 18:00 2020 17:45 2020 17:42 99 2020 17:38 2020 17:30 2020 17:15 2020 17:00 2020 16:45 2020 16:30 2020 16:15 2020 16:00 2020 15:45 2020 15:30 2020 15:16 2020 15:15 2020 15:00 2020 14:45 2020 14:30 2020 14:15 2020 14:00 2020 13:45 2020 13:30 20/20 13:15 01/12/20 13:00 01/12/20 12:45 01/12/20 12:30 01/12/20 12:15 01/12/20 12:00 01/12/20 11:45 01/12/20 11:30 01/12/20 11:16 01/12/20 11:15 01/12/20 11:00 01/12/20 10:45 01/12/20 10:30 01/12/20 10:15 01/12/20 10:02 01/12/20 10:00 - Physical Examination General: Other (vent to trach) HEENT: Positive: PERRL Cardiac: Positive: Reg Rate and Rhythm - Allied health notes Allied health notes reviewed: nursing
[2020-01-13] MEDS ORDERED: QUEtiapine 100 MG TAB PO ONE (12:00)
--- NOTE | 2020-01-13 12:59 | Progress Note ---
Assessment and Plan Acute hypoxemic respiratory failure Bilateral pneumonia, community acquired. Acute LLL branch P.E. Acute DVT Person under investigation for COVID-19 infection. Acute congestive heart failure exacerbation. History of cerebrovascular accident. Acute chronic obstructive pulmonary disease exacerbation. Hypertension and hypertensive urgency at presentation. History of arthritis. Leukocytosis. Lactic acidosis. Oropharyngeal dysphagia - keep on RTC t-piece as tolerated - ABG at 9 pm to assess ventilation - continue Robinul TID - continue care as below otherwise; - continue Apixaban for VTE - [employer]VEYING evaluation once off MVS - discharge planning ongoing concurrently - continue scopolamine patch for secretions - continue seroquel for anxiolysis / delirium - COVID isolation per facility protocol - prn diuresis while following electrolytes / I's & O's - continue to wean oxygen for O2 sat's > 92% - continue bronchodilators with routine trach care and pulmonary hygiene per RT - VAP bundle addressed (Aspiration precautions, HOB >40) - continue to wean per pulmonary driven protocols - sedation target is RASS 0 to -1 - continue prn analgesia per CPOT score - follow clinically re: fever curves / trend WBC - Avoid delirium (no benzodiazepines if they can be avoided) - Maintain sleep-wake cycle - enteral nutrition at goal rate as tolerated - continue accucheck's with glycemic control per SSI for target blood glucose goal of 140-180 mg/dL while critically ill; Avoid hypoglycemia - continue stress ulcer prophylaxis with Famotidine - continue mobility protocols for pressure ulcer prophylaxis - continue fall precautions - continue wound care management per RN / WCT - Supportive transfusions to keep HgB>7g/dL - CXR's and ABG's prn - Continue to monitor neurologic function - Continue chronic home medications - Continue all supportive care ........ re-evaluate in am & prn CONDITION: CRITICAL PROGNOSIS: GUARDED CODE STATUS: FULL CODE The high probability of a clinically significant, sudden or life threatening deterioration of the [Respiratory, cardiovascular & neurological] system(s) required my full and direct attention, intervention and personal management. The aggregate critical care time was [32] minutes without overlap. Time includes spent on [x] Data Review and interpretation [x] Patient assessment and monitoring of vital signs [x] Documentation [x] Medication orders and management Subjective Date of service: 01/13/20 Principal diagnosis: Ac hypoxemic resp failure; Pneumonia; PUI COVID-19; CHF; COPD; HTN Interval history: Patient is seen today for: Acute hypoxemic respiratory failure; Adan. Pneumonia (CAP); PUI COVID-19 infection; AE-CHF; AE-COPD; H/O CVA; HTN Seen and examined at bedside; 24 hour events reviewed; nursing and respiratory care staff consulted; no adverse overnight events reported to me; resting peacefully in bed; remains on MVS; secretions better; on t-piece and tolerating well; denies chest pain or SOB Objective Vital Signs - 12hr 01/13/20 01/13/20 01/13/20 01:00 01:15 01:30 Temperature Pulse Rate 58 L 57 L 56 L Pulse Rate [ From Monitor] Respiratory 23 23 23 Rate Respiratory Rate [Abdomen] Blood Pressure 95/58 94/59 92/60 O2 Sat by Pulse 94 94 95 Oximetry O2 Sat by Pulse Oximetry [ Assessment] 01/13/20 01/13/20 01/13/20 01:45 02:00 02:15 Temperature Pulse Rate 60 87 82 Pulse Rate [ From Monitor] Respiratory 21 21 20 Rate Respiratory Rate [Abdomen] Blood Pressure 94/62 101/71 106/74 O2 Sat by Pulse 96 99 99 Oximetry O2 Sat by Pulse Oximetry [ Assessment] 01/13/20 01/13/20 01/13/20 02:25 02:30 02:41 Temperature Pulse Rate 81 Pulse Rate [ From Monitor] Respiratory 21 21 Rate Respiratory Rate [Abdomen] Blood Pressure 110/73 O2 Sat by Pulse 99 Oximetry O2 Sat by Pulse 100 Oximetry [ Assessment] 01/13/20 01/13/20 01/13/20 02:45 03:00 03:15 Temperature Pulse Rate 71 69 67 Pulse Rate [ From Monitor] Respiratory 17 20 20 Rate Respiratory Rate [Abdomen] Blood Pressure 109/69 99/58 96/59 O2 Sat by Pulse 96 96 96 Oximetry O2 Sat by Pulse Oximetry [ Assessment] 01/13/20 01/13/20 01/13/20 03:30 03:45 03:48 Temperature Pulse Rate 69 63 64 Pulse Rate [ From Monitor] Respiratory 22 17 Rate Respiratory 15 Rate [Abdomen] Blood Pressure 90/60 97/57 O2 Sat by Pulse 95 95 Oximetry O2 Sat by Pulse Oximetry [ Assessment] 01/13/20 01/13/20 01/13/20 03:50 03:51 04:00 Temperature 98.8 F Pulse Rate 62 Pulse Rate [ 62 From Monitor] Respiratory 16 19 Rate Respiratory Rate [Abdomen] Blood Pressure 99/57 O2 Sat by Pulse 100 94 Oximetry O2 Sat by Pulse Oximetry [ Assessment] 01/13/20 01/13/20 01/13/20 04:15 04:24 04:30 Temperature Pulse Rate 73 77 77 Pulse Rate [ From Monitor] Respiratory 19 23 Rate Respiratory Rate [Abdomen] Blood Pressure 96/57 96/57 96/67 O2 Sat by Pulse 98 100 100 Oximetry O2 Sat by Pulse Oximetry [ Assessment] 01/13/20 01/13/20 01/13/20 04:45 05:00 05:15 Temperature Pulse Rate 77 77 75 Pulse Rate [ From Monitor] Respiratory 24 24 26 H Rate Respiratory Rate [Abdomen] Blood Pressure 95/64 97/67 95/62 O2 Sat by Pulse 99 99 Oximetry O2 Sat by Pulse Oximetry [ Assessment] 01/13/20 01/13/20 01/13/20 05:30 05:45 06:00 Temperature Pulse Rate 79 76 82 Pulse Rate [ From Monitor] Respiratory 20 17 20 Rate Respiratory Rate [Abdomen] Blood Pressure 98/70 93/65 102/72 O2 Sat by Pulse 100 100 97 Oximetry O2 Sat by Pulse Oximetry [ Assessment] 01/13/20 01/13/20 01/13/20 06:15 06:30 06:39 Temperature Pulse Rate 68 65 65 Pulse Rate [ From Monitor] Respiratory 18 21 Rate Respiratory Rate [Abdomen] Blood Pressure 105/63 97/55 97/55 O2 Sat by Pulse 96 97 Oximetry O2 Sat by Pulse Oximetry [ Assessment] 01/13/20 01/13/20 01/13/20 06:45 07:00 07:15 Temperature Pulse Rate 65 63 77 Pulse Rate [ From Monitor] Respiratory 18 22 16 Rate Respiratory Rate [Abdomen] Blood Pressure 94/55 95/59 96/63 O2 Sat by Pulse 95 95 100 Oximetry O2 Sat by Pulse Oximetry [ Assessment] 01/13/20 01/13/20 01/13/20 07:30 07:45 07:46 Temperature 97.7 F Pulse Rate 83 86 Pulse Rate [ From Monitor] Respiratory 21 20 Rate Respiratory Rate [Abdomen] Blood Pressure 99/69 108/73 O2 Sat by Pulse 100 100 Oximetry O2 Sat by Pulse Oximetry [ Assessment] 01/13/20 01/13/20 01/13/20 08:00 08:15 08:30 Temperature Pulse Rate 84 78 97 H Pulse Rate [ 84 From Monitor] Respiratory 23 20 23 Rate Respiratory 20 Rate [Abdomen] Blood Pressure 102/70 102/64 119/80 O2 Sat by Pulse 99 97 Oximetry O2 Sat by Pulse Oximetry [ Assessment] 01/13/20 01/13/20 01/13/20 08:34 08:35 08:36 Temperature Pulse Rate 95 H Pulse Rate [ From Monitor] Respiratory Rate Respiratory Rate [Abdomen] Blood Pressure 119/80 O2 Sat by Pulse 95 95 Oximetry O2 Sat by Pulse 95 Oximetry [ Assessment] 01/13/20 01/13/20 01/13/20 08:45 09:00 09:15 Temperature Pulse Rate 92 H 90 93 H Pulse Rate [ From Monitor] Respiratory 22 17 23 Rate Respiratory Rate [Abdomen] Blood Pressure 109/75 106/76 101/69 O2 Sat by Pulse 94 94 91 Oximetry O2 Sat by Pulse Oximetry [ Assessment] 01/13/20 01/13/20 01/13/20 09:30 09:45 10:00 Temperature Pulse Rate 90 90 86 Pulse Rate [ From Monitor] Respiratory 24 16 22 Rate Respiratory Rate [Abdomen] Blood Pressure 91/70 106/73 106/73 O2 Sat by Pulse 94 97 96 Oximetry O2 Sat by Pulse Oximetry [ Assessment] 01/13/20 01/13/20 01/13/20 10:15 10:30 10:45 Temperature Pulse Rate 82 91 H 96 H Pulse Rate [ From Monitor] Respiratory 19 20 26 H Rate Respiratory Rate [Abdomen] Blood Pressure 103/66 108/68 110/72 O2 Sat by Pulse 95 93 Oximetry O2 Sat by Pulse Oximetry [ Assessment] 01/13/20 01/13/20 01/13/20 11:00 11:15 11:30 Temperature Pulse Rate 92 H 91 H 114 H Pulse Rate [ From Monitor] Respiratory 22 20 21 Rate Respiratory Rate [Abdomen] Blood Pressure 117/65 116/65 117/65 O2 Sat by Pulse 98 98 92 Oximetry O2 Sat by Pulse Oximetry [ Assessment] 01/13/20 01/13/20 01/13/20 11:46 12:00 12:16 Temperature 97.9 F Pulse Rate 108 H 99 H 98 H Pulse Rate [ From Monitor] Respiratory 17 22 22 Rate Respiratory 22 Rate [Abdomen] Blood Pressure 117/65 117/65 117/65 O2 Sat by Pulse 94 96 96 Oximetry O2 Sat by Pulse Oximetry [ Assessment] 01/13/20 01/13/20 01/13/20 12:30 12:34 12:35 Temperature Pulse Rate 130 H Pulse Rate [ From Monitor] Respiratory 25 H Rate Respiratory Rate [Abdomen] Blood Pressure 125/81 O2 Sat by Pulse 92 94 Oximetry O2 Sat by Pulse 94 Oximetry [ Assessment] Constitutional: no acute distress, other (elelderly and obese male, normocephalic with mildly increased respiratory effort at rest on MVS) Eyes: non-icteric ENT: oropharynx moist, other (trach to MVS, NGT to LIS) Neck: supple, no JVD Effort: mildly labored Ascultation: Bilateral: diminished breath sounds, rhonchi Percussion: Bilateral: not dull Cardiovascular: irregular rhythm, other (S1,S2) Gastrointestinal: normoactive bowel sounds, soft, non-tender, other (protuberant; PEG in place) Integumentary: normal Extremities: no cyanosis, pulses normal, no ischemia or petechiae, edema (bilateral upper ) Neurologic: non-focal exam (moves extremities), pupils equal and round, CN II- XII normal, motor strength normal and (weak) Psychiatric: mood appropriate, affect normal CBC and BMP: 01/12/20 04:18 01/12/20 04:18 ABG, PT/INR, D-dimer: ABG ABG pH 7.453 (7.320-7.450) H 01/12/20 13:58 POC ABG pCO2 45.6 mmHg (32.0-48.0) 01/12/20 13:58 ABG pCO2 57.6 mm Hg 01/03/20 18:30 POC ABG pO2 76.6 mmHg (83-108) L 01/12/20 13:58 ABG pO2 70.7 mm Hg (80.0-90.0) L 01/03/20 18:30 POC ABG HCO3 31.2 01/12/20 13:58 ABG O2 Saturation 94.4 % (95.0-99.0) L 01/03/20 18:30 PT/INR, D-dimer PT 13.8 Sec. (12.2-14.9) 12/21/19 10:13 INR 1.05 (0.87-1.13) 12/21/19 10:13 Abnormal lab findings: Abnormal Labs 11/24/19 11/24/19 11/24/19 02:53 02:53 03:45 WBC 14.3 H RBC Hgb Hct MCHC RDW 17.2 H MCV MCH Lymph % (Auto) [facility] % (Auto) [facility] # Eos # Lymph # (Auto) [facility] # (Auto) Eos # (Auto) Seg Neutrophils % Seg Neuts % (Manual) Baso # (Auto) Lymphocytes % (Manual) Monocytes % (Manual) Eosinophils % (Manual) Basophils % (Manual) Seg Neutrophils # Seg Neutrophils # Man 8.3 H Lymphocytes # (Manual) Monocytes # (Manual) 0.9 H Eosinophils # (Manual) Nucleated RBC % Basophils # (Manual) APTT Heparin Anti-Xa Level ABG pH 7.313 L POC ABG pO2 ABG pO2 102.8 H ABG HCO3 ABG O2 Saturation ABG Base Excess -2.9 L POC ABG pCO2 ABG Hemoglobin ABG Oxyhemoglobin ABG Glucose Oxyhemoglobin 93.9 L Sodium Potassium Chloride Carbon Dioxide BUN Creatinine Glucose 195 H POC Glucose Lactic Acid Calcium Phosphorus Magnesium AST ALT Lactate Dehydrogenase CK-MB (CK-2) 4.3 H C-Reactive Protein NT-Pro-B Natriuret Pep 1181 H Total Protein Albumin Arterial Blood Glucose Urine WBC (Auto) 11/24/19 11/24/19 11/24/19 04:53 04:53 10:37 WBC RBC Hgb Hct MCHC RDW MCV MCH Lymph % (Auto) [facility] % (Auto) [facility] # Eos # Lymph # (Auto) [facility] # (Auto) Eos # (Auto) Seg Neutrophils % Seg Neuts % (Manual) Baso # (Auto) Lymphocytes % (Manual) Monocytes % (Manual) Eosinophils % (Manual) Basophils % (Manual) Seg Neutrophils # Seg Neutrophils # Man Lymphocytes # (Manual) Monocytes # (Manual) Eosinophils # (Manual) Nucleated RBC % Basophils # (Manual) APTT Heparin Anti-Xa Level ABG pH POC ABG pO2 ABG pO2 ABG HCO3 ABG O2 Saturation ABG Base Excess POC ABG pCO2 ABG Hemoglobin ABG Oxyhemoglobin ABG Glucose Oxyhemoglobin Sodium Potassium Chloride Carbon Dioxide BUN Creatinine Glucose 162 H POC Glucose Lactic Acid 2.40 H* 2.50 H* Calcium Phosphorus Magnesium AST ALT Lactate Dehydrogenase 240 H CK-MB (CK-2) C-Reactive Protein NT-Pro-B Natriuret Pep Total Protein Albumin Arterial Blood Glucose Urine WBC (Auto) 11/24/19 11/24/19 11/24/19 12:21 14:50 19:54 WBC RBC Hgb Hct MCHC RDW MCV MCH Lymph % (Auto) [facility] % (Auto) [facility] # Eos # Lymph # (Auto) [facility] # (Auto) Eos # (Auto) Seg Neutrophils % Seg Neuts % (Manual) Baso # (Auto) Lymphocytes % (Manual) Monocytes % (Manual) Eosinophils % (Manual) Basophils % (Manual) Seg Neutrophils # Seg Neutrophils # Man Lymphocytes # (Manual) Monocytes # (Manual) Eosinophils # (Manual) Nucleated RBC % Basophils # (Manual) APTT Heparin Anti-Xa Level ABG pH POC ABG pO2 ABG pO2 ABG HCO3 ABG O2 Saturation ABG Base Excess POC ABG pCO2 ABG Hemoglobin ABG Oxyhemoglobin ABG Glucose Oxyhemoglobin Sodium Potassium Chloride Carbon Dioxide BUN Creatinine Glucose POC Glucose 145 H 143 H 124 H Lactic Acid Calcium Phosphorus Magnesium AST ALT Lactate Dehydrogenase CK-MB (CK-2) C-Reactive Protein NT-Pro-B Natriuret Pep Total Protein Albumin Arterial Blood Glucose Urine WBC (Auto) 11/25/19 11/25/19 11/25/19 00:18 03:18 05:11 WBC 13.7 H RBC Hgb Hct MCHC RDW 17.1 H MCV MCH Lymph % (Auto) 10.[address] [facility] % (Auto) 8.[address] [facility] # 1.2 H Eos # Lymph # (Auto) [facility] # (Auto) Eos # (Auto) Seg Neutrophils % 80.2 H Seg Neuts % (Manual) Baso # (Auto) Lymphocytes % (Manual) Monocytes % (Manual) Eosinophils % (Manual) Basophils % (Manual) Seg Neutrophils # 11.0 H Seg Neutrophils # Man Lymphocytes # (Manual) Monocytes # (Manual) Eosinophils # (Manual) Nucleated RBC % Basophils # (Manual) APTT Heparin Anti-Xa Level ABG pH 7.333 L POC ABG pO2 ABG pO2 61.2 L ABG HCO3 ABG O2 Saturation 90.2 L ABG Base Excess POC ABG pCO2 ABG Hemoglobin 13.7 L ABG Oxyhemoglobin ABG Glucose Oxyhemoglobin 88.2 L Sodium Potassium Chloride Carbon Dioxide BUN Creatinine Glucose POC Glucose 109 H Lactic Acid Calcium Phosphorus Magnesium AST ALT Lactate Dehydrogenase CK-MB (CK-2) C-Reactive Protein NT-Pro-B Natriuret Pep Total Protein Albumin Arterial Blood Glucose Urine WBC (Auto) 11/25/19 11/25/19 11/26/19 05:11 11:40 03:12 WBC RBC Hgb Hct MCHC RDW MCV MCH Lymph % (Auto) [facility] % (Auto) [facility] # Eos # Lymph # (Auto) [facility] # (Auto) Eos # (Auto) Seg Neutrophils % Seg Neuts % (Manual) Baso # (Auto) Lymphocytes % (Manual) Monocytes % (Manual) Eosinophils % (Manual) Basophils % (Manual) Seg Neutrophils # Seg Neutrophils # Man Lymphocytes # (Manual) Monocytes # (Manual) Eosinophils # (Manual) Nucleated RBC % Basophils # (Manual) APTT Heparin Anti-Xa Level ABG pH POC ABG pO2 ABG pO2 155.1 H ABG HCO3 27.8 H ABG O2 Saturation ABG Base Excess POC ABG pCO2 ABG Hemoglobin 12.2 L ABG Oxyhemoglobin ABG Glucose Oxyhemoglobin Sodium Potassium Chloride Carbon Dioxide BUN 23 H Creatinine Glucose 110 H POC Glucose 108 H Lactic Acid Calcium Phosphorus Magnesium AST ALT Lactate Dehydrogenase CK-MB (CK-2) C-Reactive Protein NT-Pro-B Natriuret Pep Total Protein Albumin Arterial Blood Glucose Urine WBC (Auto) 11/26/19 11/26/19 11/26/19 06:17 10:43 10:43 WBC 11.4 H RBC Hgb Hct MCHC RDW 17.1 H MCV MCH Lymph % (Auto) [facility] % (Auto) [facility] # Eos # Lymph # (Auto) [facility] # (Auto) Eos # (Auto) Seg Neutrophils % Seg Neuts % (Manual) Baso # (Auto) Lymphocytes % (Manual) Monocytes % (Manual) Eosinophils % (Manual) Basophils % (Manual) Seg Neutrophils # Seg Neutrophils # Man Lymphocytes # (Manual) Monocytes # (Manual) Eosinophils # (Manual) Nucleated RBC % Basophils # (Manual) APTT Heparin Anti-Xa Level ABG pH POC ABG pO2 ABG pO2 ABG HCO3 ABG O2 Saturation ABG Base Excess POC ABG pCO2 ABG Hemoglobin ABG Oxyhemoglobin ABG Glucose Oxyhemoglobin Sodium Potassium Chloride Carbon Dioxide BUN 29 H Creatinine Glucose POC Glucose 107 H Lactic Acid Calcium Phosphorus Magnesium AST ALT Lactate Dehydrogenase CK-MB (CK-2) C-Reactive Protein NT-Pro-B Natriuret Pep Total Protein Albumin Arterial Blood Glucose Urine WBC (Auto) 11/26/19 11/27/19 11/27/19 17:11 01:53 04:11 WBC RBC Hgb Hct MCHC RDW MCV MCH Lymph % (Auto) [facility] % (Auto) [facility] # Eos # Lymph # (Auto) [facility] # (Auto) Eos # (Auto) Seg Neutrophils % Seg Neuts % (Manual) Baso # (Auto) Lymphocytes % (Manual) Monocytes % (Manual) Eosinophils % (Manual) Basophils % (Manual) Seg Neutrophils # Seg Neutrophils # Man Lymphocytes # (Manual) Monocytes # (Manual) Eosinophils # (Manual) Nucleated RBC % Basophils # (Manual) APTT Heparin Anti-Xa Level ABG pH POC ABG pO2 ABG pO2 ABG HCO3 29.2 H ABG O2 Saturation ABG Base Excess 3.4 H POC ABG pCO2 ABG Hemoglobin 13.3 L ABG Oxyhemoglobin ABG Glucose Oxyhemoglobin 94.5 L Sodium Potassium Chloride Carbon Dioxide BUN Creatinine Glucose POC Glucose 113 H 108 H Lactic Acid Calcium Phosphorus Magnesium AST ALT Lactate Dehydrogenase CK-MB (CK-2) C-Reactive Protein NT-Pro-B Natriuret Pep Total Protein Albumin Arterial Blood Glucose Urine WBC (Auto) 11/27/19 11/28/19 11/28/19 05:27 05:00 05:25 WBC RBC Hgb Hct MCHC RDW MCV MCH Lymph % (Auto) [facility] % (Auto) [facility] # Eos # Lymph # (Auto) [facility] # (Auto) Eos # (Auto) Seg Neutrophils % Seg Neuts % (Manual) Baso # (Auto) Lymphocytes % (Manual) Monocytes % (Manual) Eosinophils % (Manual) Basophils % (Manual) Seg Neutrophils # Seg Neutrophils # Man Lymphocytes # (Manual) Monocytes # (Manual) Eosinophils # (Manual) Nucleated RBC % Basophils # (Manual) APTT Heparin Anti-Xa Level ABG pH POC ABG pO2 68.1 L ABG pO2 ABG HCO3 ABG O2 Saturation ABG Base Excess POC ABG pCO2 ABG Hemoglobin ABG Oxyhemoglobin 91.2 L ABG Glucose Oxyhemoglobin Sodium Potassium Chloride Carbon Dioxide BUN Creatinine Glucose POC Glucose 111 H 110 H Lactic Acid Calcium Phosphorus Magnesium AST ALT Lactate Dehydrogenase CK-MB (CK-2) C-Reactive Protein NT-Pro-B Natriuret Pep Total Protein Albumin Arterial Blood Glucose Urine WBC (Auto) 11/28/19 11/28/19 11/28/19 12:08 13:47 13:47 WBC 11.3 H RBC Hgb Hct MCHC RDW 16.1 H MCV MCH Lymph % (Auto) [facility] % (Auto) 9.[address] [facility] # 1.1 H Eos # Lymph # (Auto) [facility] # (Auto) Eos # (Auto) Seg Neutrophils % 71.4 H Seg Neuts % (Manual) Baso # (Auto) Lymphocytes % (Manual) Monocytes % (Manual) Eosinophils % (Manual) Basophils % (Manual) Seg Neutrophils # 8.1 H Seg Neutrophils # Man Lymphocytes # (Manual) Monocytes # (Manual) Eosinophils # (Manual) Nucleated RBC % Basophils # (Manual) APTT Heparin Anti-Xa Level ABG pH POC ABG pO2 ABG pO2 ABG HCO3 ABG O2 Saturation ABG Base Excess POC ABG pCO2 ABG Hemoglobin ABG Oxyhemoglobin ABG Glucose Oxyhemoglobin Sodium Potassium Chloride Carbon Dioxide BUN 23 H Creatinine Glucose 123 H POC Glucose 112 H Lactic Acid Calcium Phosphorus Magnesium AST ALT Lactate Dehydrogenase CK-MB (CK-2) C-Reactive Protein NT-Pro-B Natriuret Pep Total Protein Albumin 3.7 L Arterial Blood Glucose Urine WBC (Auto) 11/28/19 11/29/19 11/29/19 17:26 03:55 17:04 WBC RBC Hgb Hct MCHC RDW MCV MCH Lymph % (Auto) [facility] % (Auto) [facility] # Eos # Lymph # (Auto) [facility] # (Auto) Eos # (Auto) Seg Neutrophils % Seg Neuts % (Manual) Baso # (Auto) Lymphocytes % (Manual) Monocytes % (Manual) Eosinophils % (Manual) Basophils % (Manual) Seg Neutrophils # Seg Neutrophils # Man Lymphocytes # (Manual) Monocytes # (Manual) Eosinophils # (Manual) Nucleated RBC % Basophils # (Manual) APTT Heparin Anti-Xa Level ABG pH POC ABG pO2 ABG pO2 65.7 L ABG HCO3 28.3 H ABG O2 Saturation 93.9 L ABG Base Excess 3.6 H POC ABG pCO2 ABG Hemoglobin 13.3 L ABG Oxyhemoglobin ABG Glucose Oxyhemoglobin 91.5 L Sodium Potassium Chloride Carbon Dioxide BUN Creatinine Glucose POC Glucose 123 H 119 H Lactic Acid Calcium Phosphorus Magnesium AST ALT Lactate Dehydrogenase CK-MB (CK-2) C-Reactive Protein NT-Pro-B Natriuret Pep Total Protein Albumin Arterial Blood Glucose Urine WBC (Auto) 11/30/19 11/30/19 11/30/19 04:17 04:17 04:56 WBC 13.4 H RBC Hgb Hct MCHC RDW 15.6 H MCV MCH Lymph % (Auto) [facility] % (Auto) [facility] # Eos # Lymph # (Auto) [facility] # (Auto) Eos # (Auto) Seg Neutrophils % Seg Neuts % (Manual) Baso # (Auto) Lymphocytes % (Manual) Monocytes % (Manual) Eosinophils % (Manual) Basophils % (Manual) Seg Neutrophils # Seg Neutrophils # Man Lymphocytes # (Manual) Monocytes # (Manual) Eosinophils # (Manual) Nucleated RBC % Basophils # (Manual) APTT Heparin Anti-Xa Level ABG pH POC ABG pO2 ABG pO2 56.3 L ABG HCO3 29.3 H ABG O2 Saturation 91.5 L ABG Base Excess 4.7 H POC ABG pCO2 ABG Hemoglobin 12.1 L ABG Oxyhemoglobin ABG Glucose Oxyhemoglobin 89.2 L Sodium 147 H Potassium Chloride Carbon Dioxide BUN 30 H Creatinine Glucose 124 H POC Glucose Lactic Acid Calcium Phosphorus Magnesium AST ALT Lactate Dehydrogenase CK-MB (CK-2) C-Reactive Protein NT-Pro-B Natriuret Pep Total Protein Albumin 3.8 L Arterial Blood Glucose Urine WBC (Auto) 11/30/19 11/30/19 11/30/19 05:51 11:54 18:17 WBC RBC Hgb Hct MCHC RDW MCV MCH Lymph % (Auto) [facility] % (Auto) [facility] # Eos # Lymph # (Auto) [facility] # (Auto) Eos # (Auto) Seg Neutrophils % Seg Neuts % (Manual) Baso # (Auto) Lymphocytes % (Manual) Monocytes % (Manual) Eosinophils % (Manual) Basophils % (Manual) Seg Neutrophils # Seg Neutrophils # Man Lymphocytes # (Manual) Monocytes # (Manual) Eosinophils # (Manual) Nucleated RBC % Basophils # (Manual) APTT Heparin Anti-Xa Level ABG pH POC ABG pO2 ABG pO2 ABG HCO3 ABG O2 Saturation ABG Base Excess POC ABG pCO2 ABG Hemoglobin ABG Oxyhemoglobin ABG Glucose Oxyhemoglobin Sodium Potassium Chloride Carbon Dioxide BUN Creatinine Glucose POC Glucose 127 H 115 H 143 H Lactic Acid Calcium Phosphorus Magnesium AST ALT Lactate Dehydrogenase CK-MB (CK-2) C-Reactive Protein NT-Pro-B Natriuret Pep Total Protein Albumin Arterial Blood Glucose Urine WBC (Auto) 12/01/19 12/01/19 12/01/19 01:18 05:22 12:16 WBC RBC Hgb Hct MCHC RDW MCV MCH Lymph % (Auto) [facility] % (Auto) [facility] # Eos # Lymph # (Auto) [facility] # (Auto) Eos # (Auto) Seg Neutrophils % Seg Neuts % (Manual) Baso # (Auto) Lymphocytes % (Manual) Monocytes % (Manual) Eosinophils % (Manual) Basophils % (Manual) Seg Neutrophils # Seg Neutrophils # Man Lymphocytes # (Manual) Monocytes # (Manual) Eosinophils # (Manual) Nucleated RBC % Basophils # (Manual) APTT Heparin Anti-Xa Level ABG pH POC ABG pO2 ABG pO2 ABG HCO3 ABG O2 Saturation ABG Base Excess POC ABG pCO2 ABG Hemoglobin ABG Oxyhemoglobin ABG Glucose Oxyhemoglobin Sodium Potassium 3.5 L Chloride 107.8 H Carbon Dioxide BUN 37 H Creatinine Glucose 157 H POC Glucose 118 H 148 H Lactic Acid Calcium 8.2 L D Phosphorus Magnesium AST 48 H ALT 60 H Lactate Dehydrogenase 194 H CK-MB (CK-2) C-Reactive Protein 8.50 H NT-Pro-B Natriuret Pep Total Protein 5.5 L Albumin 2.8 L Arterial Blood Glucose Urine WBC (Auto) 12/01/19 12/02/19 12/02/19 18:04 00:05 05:16 WBC 11.4 H RBC Hgb Hct MCHC RDW 15.9 H MCV MCH Lymph % (Auto) [facility] % (Auto) 9.[address] [facility] # 1.1 H Eos # Lymph # (Auto) [facility] # (Auto) Eos # (Auto) Seg Neutrophils % 70.3 H Seg Neuts % (Manual) Baso # (Auto) Lymphocytes % (Manual) Monocytes % (Manual) Eosinophils % (Manual) Basophils % (Manual) Seg Neutrophils # 8.0 H Seg Neutrophils # Man Lymphocytes # (Manual) Monocytes # (Manual) Eosinophils # (Manual) Nucleated RBC % Basophils # (Manual) APTT Heparin Anti-Xa Level ABG pH POC ABG pO2 ABG pO2 ABG HCO3 ABG O2 Saturation ABG Base Excess POC ABG pCO2 ABG Hemoglobin ABG Oxyhemoglobin ABG Glucose Oxyhemoglobin Sodium Potassium Chloride Carbon Dioxide BUN Creatinine Glucose POC Glucose 143 H 107 H Lactic Acid Calcium Phosphorus Magnesium AST ALT Lactate Dehydrogenase CK-MB (CK-2) C-Reactive Protein NT-Pro-B Natriuret Pep Total Protein Albumin Arterial Blood Glucose Urine WBC (Auto) 12/02/19 12/02/19 12/02/19 05:16 06:03 11:52 WBC RBC Hgb Hct MCHC RDW MCV MCH Lymph % (Auto) [facility] % (Auto) [facility] # Eos # Lymph # (Auto) [facility] # (Auto) Eos # (Auto) Seg Neutrophils % Seg Neuts % (Manual) Baso # (Auto) Lymphocytes % (Manual) Monocytes % (Manual) Eosinophils % (Manual) Basophils % (Manual) Seg Neutrophils # Seg Neutrophils # Man Lymphocytes # (Manual) Monocytes # (Manual) Eosinophils # (Manual) Nucleated RBC % Basophils # (Manual) APTT Heparin Anti-Xa Level ABG pH POC ABG pO2 ABG pO2 ABG HCO3 ABG O2 Saturation ABG Base Excess POC ABG pCO2 ABG Hemoglobin ABG Oxyhemoglobin ABG Glucose Oxyhemoglobin Sodium 146 H Potassium Chloride Carbon Dioxide BUN 28 H Creatinine Glucose 123 H POC Glucose 110 H 152 H Lactic Acid Calcium Phosphorus Magnesium AST ALT Lactate Dehydrogenase CK-MB (CK-2) C-Reactive Protein NT-Pro-B Natriuret Pep Total Protein Albumin Arterial Blood Glucose Urine WBC (Auto) 12/02/19 12/02/19 12/02/19 12:58 17:58 23:36 WBC RBC Hgb Hct MCHC RDW MCV MCH Lymph % (Auto) [facility] % (Auto) [facility] # Eos # Lymph # (Auto) [facility] # (Auto) Eos # (Auto) Seg Neutrophils % Seg Neuts % (Manual) Baso # (Auto) Lymphocytes % (Manual) Monocytes % (Manual) Eosinophils % (Manual) Basophils % (Manual) Seg Neutrophils # Seg Neutrophils # Man Lymphocytes # (Manual) Monocytes # (Manual) Eosinophils # (Manual) Nucleated RBC % Basophils # (Manual) APTT Heparin Anti-Xa Level ABG pH POC ABG pO2 78.1 L ABG pO2 ABG HCO3 ABG O2 Saturation ABG Base Excess POC ABG pCO2 ABG Hemoglobin ABG Oxyhemoglobin ABG Glucose Oxyhemoglobin Sodium Potassium Chloride Carbon Dioxide BUN Creatinine Glucose POC Glucose 120 H 123 H Lactic Acid Calcium Phosphorus Magnesium AST ALT Lactate Dehydrogenase CK-MB (CK-2) C-Reactive Protein NT-Pro-B Natriuret Pep Total Protein Albumin Arterial Blood Glucose Urine WBC (Auto) 12/03/19 12/03/19 12/03/19 06:03 06:14 11:46 WBC RBC Hgb Hct MCHC RDW MCV MCH Lymph % (Auto) [facility] % (Auto) [facility] # Eos # Lymph # (Auto) [facility] # (Auto) Eos # (Auto) Seg Neutrophils % Seg Neuts % (Manual) Baso # (Auto) Lymphocytes % (Manual) Monocytes % (Manual) Eosinophils % (Manual) Basophils % (Manual) Seg Neutrophils # Seg Neutrophils # Man Lymphocytes # (Manual) Monocytes # (Manual) Eosinophils # (Manual) Nucleated RBC % Basophils # (Manual) APTT Heparin Anti-Xa Level ABG pH POC ABG pO2 ABG pO2 ABG HCO3 ABG O2 Saturation ABG Base Excess POC ABG pCO2 ABG Hemoglobin ABG Oxyhemoglobin ABG Glucose Oxyhemoglobin Sodium Potassium Chloride Carbon Dioxide BUN Creatinine Glucose POC Glucose 142 H 130 H Lactic Acid Calcium Phosphorus Magnesium AST ALT Lactate Dehydrogenase CK-MB (CK-2) C-Reactive Protein NT-Pro-B Natriuret Pep Total Protein Albumin Arterial Blood Glucose Urine WBC (Auto) 8.0 H 12/03/19 12/03/19 12/04/19 15:50 17:39 00:04 WBC RBC Hgb Hct MCHC RDW MCV MCH Lymph % (Auto) [facility] % (Auto) [facility] # Eos # Lymph # (Auto) [facility] # (Auto) Eos # (Auto) Seg Neutrophils % Seg Neuts % (Manual) Baso # (Auto) Lymphocytes % (Manual) Monocytes % (Manual) Eosinophils % (Manual) Basophils % (Manual) Seg Neutrophils # Seg Neutrophils # Man Lymphocytes # (Manual) Monocytes # (Manual) Eosinophils # (Manual) Nucleated RBC % Basophils # (Manual) APTT Heparin Anti-Xa Level ABG pH POC ABG pO2 ABG pO2 ABG HCO3 ABG O2 Saturation ABG Base Excess POC ABG pCO2 ABG Hemoglobin ABG Oxyhemoglobin ABG Glucose Oxyhemoglobin Sodium Potassium Chloride Carbon Dioxide BUN Creatinine Glucose POC Glucose 146 H 133 H Lactic Acid Calcium Phosphorus 2.40 L Magnesium AST ALT Lactate Dehydrogenase CK-MB (CK-2) C-Reactive Protein NT-Pro-B Natriuret Pep Total Protein Albumin Arterial Blood Glucose Urine WBC (Auto) 12/04/19 12/04/19 12/04/19 03:58 03:58 05:22 WBC 12.5 H RBC Hgb 11.2 L Hct 35.2 L MCHC RDW 16.0 H MCV MCH Lymph % (Auto) [facility] % (Auto) 9.[address] [facility] # 1.2 H Eos # 0.5 H Lymph # (Auto) [facility] # (Auto) Eos # (Auto) Seg Neutrophils % Seg Neuts % (Manual) Baso # (Auto) Lymphocytes % (Manual) Monocytes % (Manual) Eosinophils % (Manual) Basophils % (Manual) Seg Neutrophils # 8.6 H Seg Neutrophils # Man Lymphocytes # (Manual) Monocytes # (Manual) Eosinophils # (Manual) Nucleated RBC % Basophils # (Manual) APTT Heparin Anti-Xa Level ABG pH POC ABG pO2 ABG pO2 ABG HCO3 ABG O2 Saturation ABG Base Excess POC ABG pCO2 ABG Hemoglobin ABG Oxyhemoglobin ABG Glucose Oxyhemoglobin Sodium 146 H Potassium Chloride 108.6 H Carbon Dioxide BUN 30 H Creatinine 0.7 L Glucose 121 H POC Glucose 132 H Lactic Acid Calcium Phosphorus Magnesium AST ALT Lactate Dehydrogenase CK-MB (CK-2) C-Reactive Protein NT-Pro-B Natriuret Pep Total Protein Albumin Arterial Blood Glucose Urine WBC (Auto) 12/04/19 12/04/19 12/05/19 13:26 18:43 00:19 WBC RBC Hgb Hct MCHC RDW MCV MCH Lymph % (Auto) [facility] % (Auto) [facility] # Eos # Lymph # (Auto) [facility] # (Auto) Eos # (Auto) Seg Neutrophils % Seg Neuts % (Manual) Baso # (Auto) Lymphocytes % (Manual) Monocytes % (Manual) Eosinophils % (Manual) Basophils % (Manual) Seg Neutrophils # Seg Neutrophils # Man Lymphocytes # (Manual) Monocytes # (Manual) Eosinophils # (Manual) Nucleated RBC % Basophils # (Manual) APTT Heparin Anti-Xa Level ABG pH POC ABG pO2 ABG pO2 ABG HCO3 ABG O2 Saturation ABG Base Excess POC ABG pCO2 ABG Hemoglobin ABG Oxyhemoglobin ABG Glucose Oxyhemoglobin Sodium Potassium Chloride Carbon Dioxide BUN Creatinine Glucose POC Glucose 185 H 156 H 150 H Lactic Acid Calcium Phosphorus Magnesium AST ALT Lactate Dehydrogenase CK-MB (CK-2) C-Reactive Protein NT-Pro-B Natriuret Pep Total Protein Albumin Arterial Blood Glucose Urine WBC (Auto) 12/05/19 12/05/19 12/05/19 03:37 03:37 05:14 WBC 16.3 H RBC Hgb 11.4 L Hct MCHC RDW 15.6 H MCV MCH Lymph % (Auto) 9.[address] [facility] % (Auto) 9.[address] [facility] # 1.6 H Eos # Lymph # (Auto) [facility] # (Auto) Eos # (Auto) Seg Neutrophils % 78.0 H Seg Neuts % (Manual) Baso # (Auto) Lymphocytes % (Manual) Monocytes % (Manual) Eosinophils % (Manual) Basophils % (Manual) Seg Neutrophils # 12.7 H Seg Neutrophils # Man Lymphocytes # (Manual) Monocytes # (Manual) Eosinophils # (Manual) Nucleated RBC % Basophils # (Manual) APTT Heparin Anti-Xa Level ABG pH POC ABG pO2 ABG pO2 ABG HCO3 ABG O2 Saturation ABG Base Excess POC ABG pCO2 ABG Hemoglobin ABG Oxyhemoglobin ABG Glucose Oxyhemoglobin Sodium 146 H Potassium Chloride 107.2 H Carbon Dioxide BUN 27 H Creatinine 0.7 L Glucose 171 H POC Glucose 168 H Lactic Acid Calcium Phosphorus Magnesium AST ALT Lactate Dehydrogenase CK-MB (CK-2) C-Reactive Protein NT-Pro-B Natriuret Pep Total Protein Albumin Arterial Blood Glucose Urine WBC (Auto) 12/05/19 12/05/19 12/05/19 12:31 18:10 23:58 WBC RBC Hgb Hct MCHC RDW MCV MCH Lymph % (Auto) [facility] % (Auto) [facility] # Eos # Lymph # (Auto) [facility] # (Auto) Eos # (Auto) Seg Neutrophils % Seg Neuts % (Manual) Baso # (Auto) Lymphocytes % (Manual) Monocytes % (Manual) Eosinophils % (Manual) Basophils % (Manual) Seg Neutrophils # Seg Neutrophils # Man Lymphocytes # (Manual) Monocytes # (Manual) Eosinophils # (Manual) Nucleated RBC % Basophils # (Manual) APTT Heparin Anti-Xa Level ABG pH POC ABG pO2 ABG pO2 ABG HCO3 ABG O2 Saturation ABG Base Excess POC ABG pCO2 ABG Hemoglobin ABG Oxyhemoglobin ABG Glucose Oxyhemoglobin Sodium Potassium Chloride Carbon Dioxide BUN Creatinine Glucose POC Glucose 159 H 198 H 115 H Lactic Acid Calcium Phosphorus Magnesium AST ALT Lactate Dehydrogenase CK-MB (CK-2) C-Reactive Protein NT-Pro-B Natriuret Pep Total Protein Albumin Arterial Blood Glucose Urine WBC (Auto) 12/06/19 12/06/19 12/06/19 05:24 05:24 05:25 WBC 14.9 H RBC Hgb 10.8 L Hct 34.0 L MCHC RDW 15.6 H MCV MCH Lymph % (Auto) 10.[address] [facility] % (Auto) 8.[address] [facility] # 1.2 H Eos # Lymph # (Auto) [facility] # (Auto) Eos # (Auto) Seg Neutrophils % 78.7 H Seg Neuts % (Manual) Baso # (Auto) Lymphocytes % (Manual) Monocytes % (Manual) Eosinophils % (Manual) Basophils % (Manual) Seg Neutrophils # 11.7 H Seg Neutrophils # Man Lymphocytes # (Manual) Monocytes # (Manual) Eosinophils # (Manual) Nucleated RBC % Basophils # (Manual) APTT Heparin Anti-Xa Level ABG pH POC ABG pO2 ABG pO2 ABG HCO3 ABG O2 Saturation ABG Base Excess POC ABG pCO2 ABG Hemoglobin ABG Oxyhemoglobin ABG Glucose Oxyhemoglobin Sodium 148 H Potassium 5.1 H Chloride 107.6 H Carbon Dioxide BUN 27 H Creatinine 0.7 L Glucose 155 H POC Glucose 157 H Lactic Acid Calcium Phosphorus Magnesium AST ALT Lactate Dehydrogenase CK-MB (CK-2) C-Reactive Protein NT-Pro-B Natriuret Pep Total Protein Albumin Arterial Blood Glucose Urine WBC (Auto) 12/07/19 12/07/19 12/07/19 00:13 05:34 11:33 WBC RBC Hgb Hct MCHC RDW MCV MCH Lymph % (Auto) [facility] % (Auto) [facility] # Eos # Lymph # (Auto) [facility] # (Auto) Eos # (Auto) Seg Neutrophils % Seg Neuts % (Manual) Baso # (Auto) Lymphocytes % (Manual) Monocytes % (Manual) Eosinophils % (Manual) Basophils % (Manual) Seg Neutrophils # Seg Neutrophils # Man Lymphocytes # (Manual) Monocytes # (Manual) Eosinophils # (Manual) Nucleated RBC % Basophils # (Manual) APTT Heparin Anti-Xa Level ABG pH POC ABG pO2 ABG pO2 ABG HCO3 ABG O2 Saturation ABG Base Excess POC ABG pCO2 ABG Hemoglobin ABG Oxyhemoglobin ABG Glucose Oxyhemoglobin Sodium Potassium Chloride Carbon Dioxide BUN Creatinine Glucose POC Glucose 142 H 111 H 169 H Lactic Acid Calcium Phosphorus Magnesium AST ALT Lactate Dehydrogenase CK-MB (CK-2) C-Reactive Protein NT-Pro-B Natriuret Pep Total Protein Albumin Arterial Blood Glucose Urine WBC (Auto) 12/07/19 12/07/19 12/07/19 12:41 13:25 18:19 WBC 12.4 H RBC 3.53 L Hgb 10.2 L Hct 32.1 L MCHC RDW 15.3 H MCV MCH Lymph % (Auto) 10.[address] [facility] % (Auto) 7.[address] [facility] # 1.0 H Eos # Lymph # (Auto) [facility] # (Auto) Eos # (Auto) Seg Neutrophils % 77.6 H Seg Neuts % (Manual) Baso # (Auto) Lymphocytes % (Manual) Monocytes % (Manual) Eosinophils % (Manual) Basophils % (Manual) Seg Neutrophils # 9.6 H Seg Neutrophils # Man Lymphocytes # (Manual) Monocytes # (Manual) Eosinophils # (Manual) Nucleated RBC % Basophils # (Manual) APTT Heparin Anti-Xa Level ABG pH POC ABG pO2 ABG pO2 ABG HCO3 ABG O2 Saturation ABG Base Excess POC ABG pCO2 ABG Hemoglobin ABG Oxyhemoglobin ABG Glucose Oxyhemoglobin Sodium 149 H Potassium Chloride 108.4 H Carbon Dioxide BUN 26 H Creatinine 0.6 L Glucose 149 H POC Glucose 164 H Lactic Acid Calcium Phosphorus Magnesium 2.60 H AST 121 H ALT 145 H Lactate Dehydrogenase CK-MB (CK-2) C-Reactive Protein NT-Pro-B Natriuret Pep Total Protein Albumin 2.6 L Arterial Blood Glucose Urine WBC (Auto) 12/07/19 12/08/19 12/08/19 22:25 00:02 03:55 WBC 13.3 H RBC 3.40 L Hgb 9.7 L Hct 30.8 L MCHC 31 L RDW 15.5 H MCV MCH Lymph % (Auto) [facility] % (Auto) 8.[address] [facility] # 1.1 H Eos # Lymph # (Auto) [facility] # (Auto) Eos # (Auto) Seg Neutrophils % 73.0 H Seg Neuts % (Manual) Baso # (Auto) Lymphocytes % (Manual) Monocytes % (Manual) Eosinophils % (Manual) Basophils % (Manual) Seg Neutrophils # 9.7 H Seg Neutrophils # Man Lymphocytes # (Manual) Monocytes # (Manual) Eosinophils # (Manual) Nucleated RBC % Basophils # (Manual) APTT Heparin Anti-Xa Level 0.12 L ABG pH POC ABG pO2 ABG pO2 ABG HCO3 ABG O2 Saturation ABG Base Excess POC ABG pCO2 ABG Hemoglobin ABG Oxyhemoglobin ABG Glucose Oxyhemoglobin Sodium Potassium Chloride Carbon Dioxide BUN Creatinine Glucose POC Glucose 151 H Lactic Acid Calcium Phosphorus Magnesium AST ALT Lactate Dehydrogenase CK-MB (CK-2) C-Reactive Protein NT-Pro-B Natriuret Pep Total Protein Albumin Arterial Blood Glucose Urine WBC (Auto) 12/08/19 12/08/19 12/08/19 03:55 05:21 06:01 WBC RBC Hgb Hct MCHC RDW MCV MCH Lymph % (Auto) [facility] % (Auto) [facility] # Eos # Lymph # (Auto) [facility] # (Auto) Eos # (Auto) Seg Neutrophils % Seg Neuts % (Manual) Baso # (Auto) Lymphocytes % (Manual) Monocytes % (Manual) Eosinophils % (Manual) Basophils % (Manual) Seg Neutrophils # Seg Neutrophils # Man Lymphocytes # (Manual) Monocytes # (Manual) Eosinophils # (Manual) Nucleated RBC % Basophils # (Manual) APTT Heparin Anti-Xa Level 0.20 L ABG pH POC ABG pO2 ABG pO2 ABG HCO3 ABG O2 Saturation ABG Base Excess POC ABG pCO2 ABG Hemoglobin ABG Oxyhemoglobin ABG Glucose Oxyhemoglobin Sodium 149 H Potassium Chloride 108.0 H Carbon Dioxide BUN 28 H Creatinine 0.6 L Glucose 144 H POC Glucose 143 H Lactic Acid Calcium Phosphorus Magnesium AST 98 H ALT 145 H Lactate Dehydrogenase CK-MB (CK-2) C-Reactive Protein NT-Pro-B Natriuret Pep Total Protein 6.0 L Albumin 2.4 L Arterial Blood Glucose Urine WBC (Auto) 12/08/19 12/08/19 12/08/19 12:08 18:11 23:53 WBC RBC Hgb Hct MCHC RDW MCV MCH Lymph % (Auto) [facility] % (Auto) [facility] # Eos # Lymph # (Auto) [facility] # (Auto) Eos # (Auto) Seg Neutrophils % Seg Neuts % (Manual) Baso # (Auto) Lymphocytes % (Manual) Monocytes % (Manual) Eosinophils % (Manual) Basophils % (Manual) Seg Neutrophils # Seg Neutrophils # Man Lymphocytes # (Manual) Monocytes # (Manual) Eosinophils # (Manual) Nucleated RBC % Basophils # (Manual) APTT Heparin Anti-Xa Level ABG pH POC ABG pO2 ABG pO2 ABG HCO3 ABG O2 Saturation ABG Base Excess POC ABG pCO2 ABG Hemoglobin ABG Oxyhemoglobin ABG Glucose Oxyhemoglobin Sodium Potassium Chloride Carbon Dioxide BUN Creatinine Glucose POC Glucose 172 H 122 H 162 H Lactic Acid Calcium Phosphorus Magnesium AST ALT Lactate Dehydrogenase CK-MB (CK-2) C-Reactive Protein NT-Pro-B Natriuret Pep Total Protein Albumin Arterial Blood Glucose Urine WBC (Auto) 12/09/19 12/09/19 12/09/19 04:03 04:03 05:53 WBC RBC Hgb 9.1 L Hct 28.9 L MCHC RDW MCV MCH Lymph % (Auto) [facility] % (Auto) [facility] # Eos # Lymph # (Auto) [facility] # (Auto) Eos # (Auto) Seg Neutrophils % Seg Neuts % (Manual) Baso # (Auto) Lymphocytes % (Manual) Monocytes % (Manual) Eosinophils % (Manual) Basophils % (Manual) Seg Neutrophils # Seg Neutrophils # Man Lymphocytes # (Manual) Monocytes # (Manual) Eosinophils # (Manual) Nucleated RBC % Basophils # (Manual) APTT Heparin Anti-Xa Level 0.15 L ABG pH POC ABG pO2 ABG pO2 ABG HCO3 ABG O2 Saturation ABG Base Excess POC ABG pCO2 ABG Hemoglobin ABG Oxyhemoglobin ABG Glucose Oxyhemoglobin Sodium Potassium Chloride Carbon Dioxide BUN Creatinine Glucose POC Glucose 124 H Lactic Acid Calcium Phosphorus Magnesium AST ALT Lactate Dehydrogenase CK-MB (CK-2) C-Reactive Protein NT-Pro-B Natriuret Pep Total Protein Albumin Arterial Blood Glucose Urine WBC (Auto) 12/09/19 12/09/19 12/10/19 09:43 12:41 00:13 WBC RBC Hgb Hct MCHC RDW MCV MCH Lymph % (Auto) [facility] % (Auto) [facility] # Eos # Lymph # (Auto) [facility] # (Auto) Eos # (Auto) Seg Neutrophils % Seg Neuts % (Manual) Baso # (Auto) Lymphocytes % (Manual) Monocytes % (Manual) Eosinophils % (Manual) Basophils % (Manual) Seg Neutrophils # Seg Neutrophils # Man Lymphocytes # (Manual) Monocytes # (Manual) Eosinophils # (Manual) Nucleated RBC % Basophils # (Manual) APTT Heparin Anti-Xa Level ABG pH POC ABG pO2 ABG pO2 ABG HCO3 ABG O2 Saturation ABG Base Excess POC ABG pCO2 ABG Hemoglobin ABG Oxyhemoglobin ABG Glucose Oxyhemoglobin Sodium Potassium Chloride Carbon Dioxide BUN 25 H Creatinine 0.6 L Glucose 131 H POC Glucose 109 H 120 H Lactic Acid Calcium Phosphorus Magnesium AST ALT Lactate Dehydrogenase CK-MB (CK-2) C-Reactive Protein NT-Pro-B Natriuret Pep Total Protein Albumin Arterial Blood Glucose Urine WBC (Auto) 12/10/19 12/10/19 12/10/19 04:14 04:14 12:00 WBC 13.3 H RBC 3.34 L Hgb 9.6 L Hct 30.4 L MCHC RDW 15.4 H MCV MCH Lymph % (Auto) [facility] % (Auto) [facility] # Eos # Lymph # (Auto) [facility] # (Auto) Eos # (Auto) Seg Neutrophils % Seg Neuts % (Manual) 75.0 H Baso # (Auto) Lymphocytes % (Manual) 13.0 L Monocytes % (Manual) 8.0 H Eosinophils % (Manual) Basophils % (Manual) 2.0 H Seg Neutrophils # Seg Neutrophils # Man 10.0 H Lymphocytes # (Manual) Monocytes # (Manual) 1.1 H Eosinophils # (Manual) Nucleated RBC % Basophils # (Manual) 0.3 H APTT Heparin Anti-Xa Level ABG pH POC ABG pO2 ABG pO2 ABG HCO3 ABG O2 Saturation ABG Base Excess POC ABG pCO2 ABG Hemoglobin ABG Oxyhemoglobin ABG Glucose Oxyhemoglobin Sodium 147 H Potassium Chloride 108.3 H Carbon Dioxide BUN 21 H Creatinine 0.6 L Glucose 104 H POC Glucose 133 H Lactic Acid Calcium Phosphorus Magnesium AST ALT Lactate Dehydrogenase CK-MB (CK-2) C-Reactive Protein NT-Pro-B Natriuret Pep Total Protein Albumin Arterial Blood Glucose Urine WBC (Auto) 12/10/19 12/10/19 12/11/19 18:44 21:20 00:08 WBC 14.9 H RBC 3.36 L Hgb 9.6 L Hct 30.5 L MCHC RDW 15.4 H MCV MCH Lymph % (Auto) [facility] % (Auto) [facility] # Eos # Lymph # (Auto) [facility] # (Auto) Eos # (Auto) Seg Neutrophils % Seg Neuts % (Manual) Baso # (Auto) Lymphocytes % (Manual) Monocytes % (Manual) Eosinophils % (Manual) Basophils % (Manual) Seg Neutrophils # Seg Neutrophils # Man Lymphocytes # (Manual) Monocytes # (Manual) Eosinophils # (Manual) Nucleated RBC % Basophils # (Manual) APTT Heparin Anti-Xa Level ABG pH POC ABG pO2 ABG pO2 ABG HCO3 ABG O2 Saturation ABG Base Excess POC ABG pCO2 ABG Hemoglobin ABG Oxyhemoglobin ABG Glucose Oxyhemoglobin Sodium Potassium Chloride Carbon Dioxide BUN Creatinine Glucose POC Glucose 119 H 134 H Lactic Acid Calcium Phosphorus Magnesium AST ALT Lactate Dehydrogenase CK-MB (CK-2) C-Reactive Protein NT-Pro-B Natriuret Pep Total Protein Albumin Arterial Blood Glucose Urine WBC (Auto) 12/11/19 12/11/19 12/11/19 03:54 07:28 08:36 WBC 11.9 H RBC 3.25 L Hgb 9.6 L Hct 29.2 L MCHC RDW 15.7 H MCV MCH Lymph % (Auto) [facility] % (Auto) [facility] # Eos # Lymph # (Auto) [facility] # (Auto) Eos # (Auto) Seg Neutrophils % Seg Neuts % (Manual) Baso # (Auto) Lymphocytes % (Manual) Monocytes % (Manual) Eosinophils % (Manual) Basophils % (Manual) Seg Neutrophils # Seg Neutrophils # Man Lymphocytes # (Manual) Monocytes # (Manual) Eosinophils # (Manual) Nucleated RBC % Basophils # (Manual) APTT Heparin Anti-Xa Level 0.10 L 0.16 L ABG pH POC ABG pO2 ABG pO2 ABG HCO3 ABG O2 Saturation ABG Base Excess POC ABG pCO2 ABG Hemoglobin ABG Oxyhemoglobin ABG Glucose Oxyhemoglobin Sodium Potassium Chloride Carbon Dioxide BUN Creatinine Glucose POC Glucose Lactic Acid Calcium Phosphorus Magnesium AST ALT Lactate Dehydrogenase CK-MB (CK-2) C-Reactive Protein NT-Pro-B Natriuret Pep Total Protein Albumin Arterial Blood Glucose Urine WBC (Auto) 12/11/19 12/11/19 12/11/19 08:36 11:45 17:15 WBC RBC Hgb Hct MCHC RDW MCV MCH Lymph % (Auto) [facility] % (Auto) [facility] # Eos # Lymph # (Auto) [facility] # (Auto) Eos # (Auto) Seg Neutrophils % Seg Neuts % (Manual) Baso # (Auto) Lymphocytes % (Manual) Monocytes % (Manual) Eosinophils % (Manual) Basophils % (Manual) Seg Neutrophils # Seg Neutrophils # Man Lymphocytes # (Manual) Monocytes # (Manual) Eosinophils # (Manual) Nucleated RBC % Basophils # (Manual) APTT Heparin Anti-Xa Level ABG pH POC ABG pO2 ABG pO2 ABG HCO3 ABG O2 Saturation ABG Base Excess POC ABG pCO2 ABG Hemoglobin ABG Oxyhemoglobin ABG Glucose Oxyhemoglobin Sodium Potassium Chloride Carbon Dioxide BUN Creatinine 0.5 L Glucose 128 H POC Glucose 136 H 109 H Lactic Acid Calcium Phosphorus Magnesium AST ALT Lactate Dehydrogenase CK-MB (CK-2) C-Reactive Protein NT-Pro-B Natriuret Pep Total Protein Albumin Arterial Blood Glucose Urine WBC (Auto) 12/12/19 12/12/19 12/12/19 00:03 05:53 05:53 WBC RBC Hgb 8.8 L Hct 27.6 L MCHC RDW MCV MCH Lymph % (Auto) [facility] % (Auto) [facility] # Eos # Lymph # (Auto) [facility] # (Auto) Eos # (Auto) Seg Neutrophils % Seg Neuts % (Manual) Baso # (Auto) Lymphocytes % (Manual) Monocytes % (Manual) Eosinophils % (Manual) Basophils % (Manual) Seg Neutrophils # Seg Neutrophils # Man Lymphocytes # (Manual) Monocytes # (Manual) Eosinophils # (Manual) Nucleated RBC % Basophils # (Manual) APTT Heparin Anti-Xa Level 0.22 L ABG pH POC ABG pO2 ABG pO2 ABG HCO3 ABG O2 Saturation ABG Base Excess POC ABG pCO2 ABG Hemoglobin ABG Oxyhemoglobin ABG Glucose Oxyhemoglobin Sodium Potassium Chloride Carbon Dioxide BUN Creatinine Glucose POC Glucose 116 H Lactic Acid Calcium Phosphorus Magnesium AST ALT Lactate Dehydrogenase CK-MB (CK-2) C-Reactive Protein NT-Pro-B Natriuret Pep Total Protein Albumin Arterial Blood Glucose Urine WBC (Auto) 12/12/19 12/12/19 12/12/19 09:38 12:18 17:44 WBC RBC Hgb Hct MCHC RDW MCV MCH Lymph % (Auto) [facility] % (Auto) [facility] # Eos # Lymph # (Auto) [facility] # (Auto) Eos # (Auto) Seg Neutrophils % Seg Neuts % (Manual) Baso # (Auto) Lymphocytes % (Manual) Monocytes % (Manual) Eosinophils % (Manual) Basophils % (Manual) Seg Neutrophils # Seg Neutrophils # Man Lymphocytes # (Manual) Monocytes # (Manual) Eosinophils # (Manual) Nucleated RBC % Basophils # (Manual) APTT Heparin Anti-Xa Level ABG pH POC ABG pO2 ABG pO2 ABG HCO3 ABG O2 Saturation ABG Base Excess POC ABG pCO2 ABG Hemoglobin ABG Oxyhemoglobin ABG Glucose Oxyhemoglobin Sodium Potassium Chloride Carbon Dioxide BUN Creatinine Glucose POC Glucose 115 H 146 H 146 H Lactic Acid Calcium Phosphorus Magnesium AST ALT Lactate Dehydrogenase CK-MB (CK-2) C-Reactive Protein NT-Pro-B Natriuret Pep Total Protein Albumin Arterial Blood Glucose Urine WBC (Auto) 12/12/19 12/13/19 12/13/19 23:33 05:32 05:32 WBC 13.1 H RBC 3.27 L Hgb 9.5 L Hct 29.3 L MCHC RDW 15.6 H MCV MCH Lymph % (Auto) [facility] % (Auto) [facility] # Eos # Lymph # (Auto) [facility] # (Auto) Eos # (Auto) Seg Neutrophils % Seg Neuts % (Manual) 74.0 H Baso # (Auto) Lymphocytes % (Manual) 8.0 L Monocytes % (Manual) 9.0 H Eosinophils % (Manual) 5.0 H Basophils % (Manual) Seg Neutrophils # Seg Neutrophils # Man 9.7 H Lymphocytes # (Manual) 1.0 L Monocytes # (Manual) 1.2 H Eosinophils # (Manual) 0.7 H Nucleated RBC % Basophils # (Manual) APTT Heparin Anti-Xa Level 0.20 L ABG pH POC ABG pO2 ABG pO2 ABG HCO3 ABG O2 Saturation ABG Base Excess POC ABG pCO2 ABG Hemoglobin ABG Oxyhemoglobin ABG Glucose Oxyhemoglobin Sodium Potassium Chloride Carbon Dioxide BUN Creatinine Glucose POC Glucose 126 H Lactic Acid Calcium Phosphorus Magnesium AST ALT Lactate Dehydrogenase CK-MB (CK-2) C-Reactive Protein NT-Pro-B Natriuret Pep Total Protein Albumin Arterial Blood Glucose Urine WBC (Auto) 12/13/19 12/13/19 12/13/19 05:32 05:46 11:57 WBC RBC Hgb Hct MCHC RDW MCV MCH Lymph % (Auto) [facility] % (Auto) [facility] # Eos # Lymph # (Auto) [facility] # (Auto) Eos # (Auto) Seg Neutrophils % Seg Neuts % (Manual) Baso # (Auto) Lymphocytes % (Manual) Monocytes % (Manual) Eosinophils % (Manual) Basophils % (Manual) Seg Neutrophils # Seg Neutrophils # Man Lymphocytes # (Manual) Monocytes # (Manual) Eosinophils # (Manual) Nucleated RBC % Basophils # (Manual) APTT Heparin Anti-Xa Level ABG pH POC ABG pO2 ABG pO2 ABG HCO3 ABG O2 Saturation ABG Base Excess POC ABG pCO2 ABG Hemoglobin ABG Oxyhemoglobin ABG Glucose Oxyhemoglobin Sodium Potassium Chloride Carbon Dioxide 31 H BUN Creatinine 0.6 L Glucose 114 H POC Glucose 118 H 133 H Lactic Acid Calcium Phosphorus Magnesium AST ALT Lactate Dehydrogenase CK-MB (CK-2) C-Reactive Protein NT-Pro-B Natriuret Pep Total Protein Albumin Arterial Blood Glucose Urine WBC (Auto) 12/13/19 12/13/19 12/14/19 17:44 23:46 05:32 WBC RBC Hgb Hct MCHC RDW MCV MCH Lymph % (Auto) [facility] % (Auto) [facility] # Eos # Lymph # (Auto) [facility] # (Auto) Eos # (Auto) Seg Neutrophils % Seg Neuts % (Manual) Baso # (Auto) Lymphocytes % (Manual) Monocytes % (Manual) Eosinophils % (Manual) Basophils % (Manual) Seg Neutrophils # Seg Neutrophils # Man Lymphocytes # (Manual) Monocytes # (Manual) Eosinophils # (Manual) Nucleated RBC % Basophils # (Manual) APTT Heparin Anti-Xa Level ABG pH POC ABG pO2 ABG pO2 ABG HCO3 ABG O2 Saturation ABG Base Excess POC ABG pCO2 ABG Hemoglobin ABG Oxyhemoglobin ABG Glucose Oxyhemoglobin Sodium Potassium Chloride Carbon Dioxide BUN Creatinine Glucose POC Glucose 161 H 126 H 139 H Lactic Acid Calcium Phosphorus Magnesium AST ALT Lactate Dehydrogenase CK-MB (CK-2) C-Reactive Protein NT-Pro-B Natriuret Pep Total Protein Albumin Arterial Blood Glucose Urine WBC (Auto) 12/14/19 12/14/19 12/14/19 06:03 06:03 09:37 WBC RBC Hgb 9.6 L Hct 30.4 L MCHC RDW MCV MCH Lymph % (Auto) [facility] % (Auto) [facility] # Eos # Lymph # (Auto) [facility] # (Auto) Eos # (Auto) Seg Neutrophils % Seg Neuts % (Manual) Baso # (Auto) Lymphocytes % (Manual) Monocytes % (Manual) Eosinophils % (Manual) Basophils % (Manual) Seg Neutrophils # Seg Neutrophils # Man Lymphocytes # (Manual) Monocytes # (Manual) Eosinophils # (Manual) Nucleated RBC % Basophils # (Manual) APTT Heparin Anti-Xa Level 0.24 L ABG pH POC ABG pO2 ABG pO2 ABG HCO3 ABG O2 Saturation ABG Base Excess POC ABG pCO2 ABG Hemoglobin ABG Oxyhemoglobin ABG Glucose Oxyhemoglobin Sodium Potassium Chloride Carbon Dioxide BUN Creatinine 0.6 L Glucose 162 H POC Glucose Lactic Acid Calcium Phosphorus Magnesium AST 71 H ALT 118 H Lactate Dehydrogenase CK-MB (CK-2) C-Reactive Protein NT-Pro-B Natriuret Pep Total Protein 6.2 L Albumin 2.3 L Arterial Blood Glucose Urine WBC (Auto) 12/14/19 12/14/19 12/15/19 12:06 18:18 00:19 WBC RBC Hgb Hct MCHC RDW MCV MCH Lymph % (Auto) [facility] % (Auto) [facility] # Eos # Lymph # (Auto) [facility] # (Auto) Eos # (Auto) Seg Neutrophils % Seg Neuts % (Manual) Baso # (Auto) Lymphocytes % (Manual) Monocytes % (Manual) Eosinophils % (Manual) Basophils % (Manual) Seg Neutrophils # Seg Neutrophils # Man Lymphocytes # (Manual) Monocytes # (Manual) Eosinophils # (Manual) Nucleated RBC % Basophils # (Manual) APTT Heparin Anti-Xa Level ABG pH POC ABG pO2 ABG pO2 ABG HCO3 ABG O2 Saturation ABG Base Excess POC ABG pCO2 ABG Hemoglobin ABG Oxyhemoglobin ABG Glucose Oxyhemoglobin Sodium Potassium Chloride Carbon Dioxide BUN Creatinine Glucose POC Glucose 147 H 166 H 123 H Lactic Acid Calcium Phosphorus Magnesium AST ALT Lactate Dehydrogenase CK-MB (CK-2) C-Reactive Protein NT-Pro-B Natriuret Pep Total Protein Albumin Arterial Blood Glucose Urine WBC (Auto) 12/15/19 12/15/19 12/15/19 05:28 05:29 05:29 WBC 14.9 H RBC 3.19 L Hgb 9.1 L Hct 28.7 L MCHC RDW 16.0 H MCV MCH Lymph % (Auto) [facility] % (Auto) [facility] # Eos # Lymph # (Auto) [facility] # (Auto) Eos # (Auto) Seg Neutrophils % Seg Neuts % (Manual) Baso # (Auto) Lymphocytes % (Manual) Monocytes % (Manual) Eosinophils % (Manual) Basophils % (Manual) Seg Neutrophils # Seg Neutrophils # Man Lymphocytes # (Manual) Monocytes # (Manual) Eosinophils # (Manual) Nucleated RBC % Basophils # (Manual) APTT Heparin Anti-Xa Level 0.19 L ABG pH POC ABG pO2 ABG pO2 ABG HCO3 ABG O2 Saturation ABG Base Excess POC ABG pCO2 ABG Hemoglobin ABG Oxyhemoglobin ABG Glucose Oxyhemoglobin Sodium Potassium Chloride Carbon Dioxide BUN Creatinine 0.6 L Glucose 110 H POC Glucose Lactic Acid Calcium Phosphorus Magnesium AST ALT Lactate Dehydrogenase CK-MB (CK-2) C-Reactive Protein NT-Pro-B Natriuret Pep Total Protein Albumin Arterial Blood Glucose Urine WBC (Auto) 12/15/19 12/15/19 12/15/19 05:53 11:50 17:26 WBC RBC Hgb Hct MCHC RDW MCV MCH Lymph % (Auto) [facility] % (Auto) [facility] # Eos # Lymph # (Auto) [facility] # (Auto) Eos # (Auto) Seg Neutrophils % Seg Neuts % (Manual) Baso # (Auto) Lymphocytes % (Manual) Monocytes % (Manual) Eosinophils % (Manual) Basophils % (Manual) Seg Neutrophils # Seg Neutrophils # Man Lymphocytes # (Manual) Monocytes # (Manual) Eosinophils # (Manual) Nucleated RBC % Basophils # (Manual) APTT Heparin Anti-Xa Level ABG pH POC ABG pO2 ABG pO2 ABG HCO3 ABG O2 Saturation ABG Base Excess POC ABG pCO2 ABG Hemoglobin ABG Oxyhemoglobin ABG Glucose Oxyhemoglobin Sodium Potassium Chloride Carbon Dioxide BUN Creatinine Glucose POC Glucose 119 H 132 H 128 H Lactic Acid Calcium Phosphorus Magnesium AST ALT Lactate Dehydrogenase CK-MB (CK-2) C-Reactive Protein NT-Pro-B Natriuret Pep Total Protein Albumin Arterial Blood Glucose Urine WBC (Auto) 12/15/19 12/16/19 12/16/19 23:11 05:30 05:46 WBC RBC Hgb 8.8 L Hct 27.9 L MCHC RDW MCV MCH Lymph % (Auto) [facility] % (Auto) [facility] # Eos # Lymph # (Auto) [facility] # (Auto) Eos # (Auto) Seg Neutrophils % Seg Neuts % (Manual) Baso # (Auto) Lymphocytes % (Manual) Monocytes % (Manual) Eosinophils % (Manual) Basophils % (Manual) Seg Neutrophils # Seg Neutrophils # Man Lymphocytes # (Manual) Monocytes # (Manual) Eosinophils # (Manual) Nucleated RBC % Basophils # (Manual) APTT Heparin Anti-Xa Level ABG pH POC ABG pO2 ABG pO2 ABG HCO3 ABG O2 Saturation ABG Base Excess POC ABG pCO2 ABG Hemoglobin ABG Oxyhemoglobin ABG Glucose Oxyhemoglobin Sodium Potassium Chloride Carbon Dioxide BUN Creatinine Glucose POC Glucose 150 H 134 H Lactic Acid Calcium Phosphorus Magnesium AST ALT Lactate Dehydrogenase CK-MB (CK-2) C-Reactive Protein NT-Pro-B Natriuret Pep Total Protein Albumin Arterial Blood Glucose Urine WBC (Auto) 12/16/19 12/16/19 12/16/19 05:46 05:46 11:44 WBC RBC Hgb Hct MCHC RDW MCV MCH Lymph % (Auto) [facility] % (Auto) [facility] # Eos # Lymph # (Auto) [facility] # (Auto) Eos # (Auto) Seg Neutrophils % Seg Neuts % (Manual) Baso # (Auto) Lymphocytes % (Manual) Monocytes % (Manual) Eosinophils % (Manual) Basophils % (Manual) Seg Neutrophils # Seg Neutrophils # Man Lymphocytes # (Manual) Monocytes # (Manual) Eosinophils # (Manual) Nucleated RBC % Basophils # (Manual) APTT Heparin Anti-Xa Level 0.20 L ABG pH POC ABG pO2 ABG pO2 ABG HCO3 ABG O2 Saturation ABG Base Excess POC ABG pCO2 ABG Hemoglobin ABG Oxyhemoglobin ABG Glucose Oxyhemoglobin Sodium Potassium Chloride Carbon Dioxide 31 H BUN Creatinine 0.5 L Glucose 147 H POC Glucose 164 H Lactic Acid Calcium Phosphorus Magnesium AST ALT Lactate Dehydrogenase CK-MB (CK-2) C-Reactive Protein NT-Pro-B Natriuret Pep Total Protein Albumin Arterial Blood Glucose Urine WBC (Auto) 12/16/19 12/16/19 12/17/19 17:17 23:49 05:30 WBC 13.9 H RBC 3.27 L Hgb 9.4 L Hct 29.2 L MCHC RDW 16.0 H MCV MCH Lymph % (Auto) [facility] % (Auto) 8.[address] [facility] # Eos # Lymph # (Auto) [facility] # (Auto) 1.2 H Eos # (Auto) 0.5 H Seg Neutrophils % 70.5 H Seg Neuts % (Manual) Baso # (Auto) 0.2 H Lymphocytes % (Manual) Monocytes % (Manual) Eosinophils % (Manual) Basophils % (Manual) Seg Neutrophils # 9.8 H Seg Neutrophils # Man Lymphocytes # (Manual) Monocytes # (Manual) Eosinophils # (Manual) Nucleated RBC % Basophils # (Manual) APTT Heparin Anti-Xa Level ABG pH POC ABG pO2 ABG pO2 ABG HCO3 ABG O2 Saturation ABG Base Excess POC ABG pCO2 ABG Hemoglobin ABG Oxyhemoglobin ABG Glucose Oxyhemoglobin Sodium Potassium Chloride Carbon Dioxide BUN Creatinine Glucose POC Glucose 162 H 144 H Lactic Acid Calcium Phosphorus Magnesium AST ALT Lactate Dehydrogenase CK-MB (CK-2) C-Reactive Protein NT-Pro-B Natriuret Pep Total Protein Albumin Arterial Blood Glucose Urine WBC (Auto) 12/17/19 12/17/19 12/17/19 05:30 06:06 11:50 WBC RBC Hgb Hct MCHC RDW MCV MCH Lymph % (Auto) [facility] % (Auto) [facility] # Eos # Lymph # (Auto) [facility] # (Auto) Eos # (Auto) Seg Neutrophils % Seg Neuts % (Manual) Baso # (Auto) Lymphocytes % (Manual) Monocytes % (Manual) Eosinophils % (Manual) Basophils % (Manual) Seg Neutrophils # Seg Neutrophils # Man Lymphocytes # (Manual) Monocytes # (Manual) Eosinophils # (Manual) Nucleated RBC % Basophils # (Manual) APTT Heparin Anti-Xa Level ABG pH POC ABG pO2 ABG pO2 ABG HCO3 ABG O2 Saturation ABG Base Excess POC ABG pCO2 ABG Hemoglobin ABG Oxyhemoglobin ABG Glucose Oxyhemoglobin Sodium Potassium Chloride 97.4 L Carbon Dioxide 32 H BUN Creatinine 0.5 L Glucose 135 H POC Glucose 151 H 140 H Lactic Acid Calcium Phosphorus Magnesium AST ALT Lactate Dehydrogenase CK-MB (CK-2) C-Reactive Protein NT-Pro-B Natriuret Pep Total Protein Albumin Arterial Blood Glucose Urine WBC (Auto) 12/17/19 12/17/19 12/18/19 17:50 23:46 05:17 WBC RBC Hgb 8.8 L Hct 28.0 L MCHC RDW MCV MCH Lymph % (Auto) [facility] % (Auto) [facility] # Eos # Lymph # (Auto) [facility] # (Auto) Eos # (Auto) Seg Neutrophils % Seg Neuts % (Manual) Baso # (Auto) Lymphocytes % (Manual) Monocytes % (Manual) Eosinophils % (Manual) Basophils % (Manual) Seg Neutrophils # Seg Neutrophils # Man Lymphocytes # (Manual) Monocytes # (Manual) Eosinophils # (Manual) Nucleated RBC % Basophils # (Manual) APTT Heparin Anti-Xa Level ABG pH POC ABG pO2 ABG pO2 ABG HCO3 ABG O2 Saturation ABG Base Excess POC ABG pCO2 ABG Hemoglobin ABG Oxyhemoglobin ABG Glucose Oxyhemoglobin Sodium Potassium Chloride Carbon Dioxide BUN Creatinine Glucose POC Glucose 158 H 150 H Lactic Acid Calcium Phosphorus Magnesium AST ALT Lactate Dehydrogenase CK-MB (CK-2) C-Reactive Protein NT-Pro-B Natriuret Pep Total Protein Albumin Arterial Blood Glucose Urine WBC (Auto) 12/18/19 12/18/19 12/18/19 05:17 05:49 11:12 WBC RBC Hgb Hct MCHC RDW MCV MCH Lymph % (Auto) [facility] % (Auto) [facility] # Eos # Lymph # (Auto) [facility] # (Auto) Eos # (Auto) Seg Neutrophils % Seg Neuts % (Manual) Baso # (Auto) Lymphocytes % (Manual) Monocytes % (Manual) Eosinophils % (Manual) Basophils % (Manual) Seg Neutrophils # Seg Neutrophils # Man Lymphocytes # (Manual) Monocytes # (Manual) Eosinophils # (Manual) Nucleated RBC % Basophils # (Manual) APTT Heparin Anti-Xa Level 0.16 L ABG pH POC ABG pO2 ABG pO2 ABG HCO3 ABG O2 Saturation ABG Base Excess POC ABG pCO2 ABG Hemoglobin ABG Oxyhemoglobin ABG Glucose Oxyhemoglobin Sodium Potassium Chloride Carbon Dioxide BUN Creatinine Glucose POC Glucose 127 H 191 H Lactic Acid Calcium Phosphorus Magnesium AST ALT Lactate Dehydrogenase CK-MB (CK-2) C-Reactive Protein NT-Pro-B Natriuret Pep Total Protein Albumin Arterial Blood Glucose Urine WBC (Auto) 12/18/19 12/18/19 12/19/19 17:03 20:16 00:08 WBC RBC Hgb Hct MCHC RDW MCV MCH Lymph % (Auto) [facility] % (Auto) [facility] # Eos # Lymph # (Auto) [facility] # (Auto) Eos # (Auto) Seg Neutrophils % Seg Neuts % (Manual) Baso # (Auto) Lymphocytes % (Manual) Monocytes % (Manual) Eosinophils % (Manual) Basophils % (Manual) Seg Neutrophils # Seg Neutrophils # Man Lymphocytes # (Manual) Monocytes # (Manual) Eosinophils # (Manual) Nucleated RBC % Basophils # (Manual) APTT Heparin Anti-Xa Level ABG pH POC ABG pO2 ABG pO2 ABG HCO3 ABG O2 Saturation ABG Base Excess POC ABG pCO2 ABG Hemoglobin ABG Oxyhemoglobin ABG Glucose Oxyhemoglobin Sodium Potassium Chloride Carbon Dioxide BUN Creatinine Glucose POC Glucose 133 H 128 H 129 H Lactic Acid Calcium Phosphorus Magnesium AST ALT Lactate Dehydrogenase CK-MB (CK-2) C-Reactive Protein NT-Pro-B Natriuret Pep Total Protein Albumin Arterial Blood Glucose Urine WBC (Auto) 12/19/19 12/19/19 12/19/19 04:45 04:45 05:35 WBC RBC Hgb Hct MCHC RDW MCV MCH Lymph % (Auto) [facility] % (Auto) [facility] # Eos # Lymph # (Auto) [facility] # (Auto) Eos # (Auto) Seg Neutrophils % Seg Neuts % (Manual) Baso # (Auto) Lymphocytes % (Manual) Monocytes % (Manual) Eosinophils % (Manual) Basophils % (Manual) Seg Neutrophils # Seg Neutrophils # Man Lymphocytes # (Manual) Monocytes # (Manual) Eosinophils # (Manual) Nucleated RBC % Basophils # (Manual) APTT Heparin Anti-Xa Level 0.17 L ABG pH POC ABG pO2 ABG pO2 ABG HCO3 ABG O2 Saturation ABG Base Excess POC ABG pCO2 ABG Hemoglobin ABG Oxyhemoglobin ABG Glucose Oxyhemoglobin Sodium Potassium Chloride Carbon Dioxide BUN Creatinine Glucose POC Glucose 120 H Lactic Acid Calcium Phosphorus Magnesium AST ALT Lactate Dehydrogenase 228 H CK-MB (CK-2) C-Reactive Protein NT-Pro-B Natriuret Pep Total Protein Albumin Arterial Blood Glucose Urine WBC (Auto) 12/19/19 12/19/19 12/19/19 09:20 11:32 11:32 WBC 14.6 H RBC 3.08 L Hgb 9.0 L Hct 26.8 L MCHC RDW 15.9 H MCV MCH Lymph % (Auto) [facility] % (Auto) [facility] # Eos # Lymph # (Auto) [facility] # (Auto) Eos # (Auto) Seg Neutrophils % Seg Neuts % (Manual) 82.0 H Baso # (Auto) Lymphocytes % (Manual) 10.0 L Monocytes % (Manual) Eosinophils % (Manual) Basophils % (Manual) Seg Neutrophils # Seg Neutrophils # Man 12.0 H Lymphocytes # (Manual) Monocytes # (Manual) 0.9 H Eosinophils # (Manual) Nucleated RBC % 1.0 H Basophils # (Manual) APTT Heparin Anti-Xa Level ABG pH 7.451 H POC ABG pO2 ABG pO2 62.6 L ABG HCO3 33.2 H ABG O2 Saturation 93.8 L ABG Base Excess 8.3 H POC ABG pCO2 ABG Hemoglobin 8.3 L ABG Oxyhemoglobin ABG Glucose Oxyhemoglobin 91.9 L Sodium Potassium Chloride 95.0 L Carbon Dioxide 33 H BUN 22 H Creatinine 0.6 L Glucose 150 H POC Glucose Lactic Acid Calcium Phosphorus Magnesium AST ALT Lactate Dehydrogenase CK-MB (CK-2) C-Reactive Protein NT-Pro-B Natriuret Pep Total Protein 6.2 L Albumin 2.4 L Arterial Blood Glucose Urine WBC (Auto) 12/19/19 12/19/19 12/20/19 11:56 18:17 00:09 WBC RBC Hgb Hct MCHC RDW MCV MCH Lymph % (Auto) [facility] % (Auto) [facility] # Eos # Lymph # (Auto) [facility] # (Auto) Eos # (Auto) Seg Neutrophils % Seg Neuts % (Manual) Baso # (Auto) Lymphocytes % (Manual) Monocytes % (Manual) Eosinophils % (Manual) Basophils % (Manual) Seg Neutrophils # Seg Neutrophils # Man Lymphocytes # (Manual) Monocytes # (Manual) Eosinophils # (Manual) Nucleated RBC % Basophils # (Manual) APTT Heparin Anti-Xa Level ABG pH POC ABG pO2 ABG pO2 ABG HCO3 ABG O2 Saturation ABG Base Excess POC ABG pCO2 ABG Hemoglobin ABG Oxyhemoglobin ABG Glucose Oxyhemoglobin Sodium Potassium Chloride Carbon Dioxide BUN Creatinine Glucose POC Glucose 156 H 156 H 155 H Lactic Acid Calcium Phosphorus Magnesium AST ALT Lactate Dehydrogenase CK-MB (CK-2) C-Reactive Protein NT-Pro-B Natriuret Pep Total Protein Albumin Arterial Blood Glucose Urine WBC (Auto) 12/20/19 12/20/19 12/20/19 05:26 06:02 18:17 WBC RBC Hgb Hct MCHC RDW MCV MCH Lymph % (Auto) [facility] % (Auto) [facility] # Eos # Lymph # (Auto) [facility] # (Auto) Eos # (Auto) Seg Neutrophils % Seg Neuts % (Manual) Baso # (Auto) Lymphocytes % (Manual) Monocytes % (Manual) Eosinophils % (Manual) Basophils % (Manual) Seg Neutrophils # Seg Neutrophils # Man Lymphocytes # (Manual) Monocytes # (Manual) Eosinophils # (Manual) Nucleated RBC % Basophils # (Manual) APTT Heparin Anti-Xa Level 0.19 L ABG pH POC ABG pO2 ABG pO2 ABG HCO3 ABG O2 Saturation ABG Base Excess POC ABG pCO2 ABG Hemoglobin ABG Oxyhemoglobin ABG Glucose Oxyhemoglobin Sodium Potassium Chloride Carbon Dioxide BUN Creatinine Glucose POC Glucose 137 H 128 H Lactic Acid Calcium Phosphorus Magnesium AST ALT Lactate Dehydrogenase CK-MB (CK-2) C-Reactive Protein NT-Pro-B Natriuret Pep Total Protein Albumin Arterial Blood Glucose Urine WBC (Auto) 12/20/19 12/21/19 12/21/19 23:34 05:31 05:31 WBC 12.7 H RBC 3.09 L Hgb 8.9 L Hct 27.4 L MCHC RDW 15.8 H MCV MCH Lymph % (Auto) 12.[address] [facility] % (Auto) 7.[address] [facility] # Eos # Lymph # (Auto) [facility] # (Auto) 1.0 H Eos # (Auto) Seg Neutrophils % 77.1 H Seg Neuts % (Manual) Baso # (Auto) Lymphocytes % (Manual) Monocytes % (Manual) Eosinophils % (Manual) Basophils % (Manual) Seg Neutrophils # 9.8 H Seg Neutrophils # Man Lymphocytes # (Manual) Monocytes # (Manual) Eosinophils # (Manual) Nucleated RBC % Basophils # (Manual) APTT Heparin Anti-Xa Level ABG pH POC ABG pO2 ABG pO2 ABG HCO3 ABG O2 Saturation ABG Base Excess POC ABG pCO2 ABG Hemoglobin ABG Oxyhemoglobin ABG Glucose Oxyhemoglobin Sodium Potassium Chloride 96.9 L Carbon Dioxide 37 H BUN 27 H Creatinine 0.7 L Glucose 140 H POC Glucose 145 H Lactic Acid Calcium Phosphorus Magnesium AST ALT Lactate Dehydrogenase CK-MB (CK-2) C-Reactive Protein NT-Pro-B Natriuret Pep Total Protein Albumin Arterial Blood Glucose Urine WBC (Auto) 12/21/19 12/21/19 12/21/19 05:38 10:13 11:51 WBC RBC Hgb Hct MCHC RDW MCV MCH Lymph % (Auto) [facility] % (Auto) [facility] # Eos # Lymph # (Auto) [facility] # (Auto) Eos # (Auto) Seg Neutrophils % Seg Neuts % (Manual) Baso # (Auto) Lymphocytes % (Manual) Monocytes % (Manual) Eosinophils % (Manual) Basophils % (Manual) Seg Neutrophils # Seg Neutrophils # Man Lymphocytes # (Manual) Monocytes # (Manual) Eosinophils # (Manual) Nucleated RBC % Basophils # (Manual) APTT 23.9 L Heparin Anti-Xa Level < 0.10 L ABG pH POC ABG pO2 ABG pO2 ABG HCO3 ABG O2 Saturation ABG Base Excess POC ABG pCO2 ABG Hemoglobin ABG Oxyhemoglobin ABG Glucose Oxyhemoglobin Sodium Potassium Chloride Carbon Dioxide BUN Creatinine Glucose POC Glucose 151 H 145 H Lactic Acid Calcium Phosphorus Magnesium AST ALT Lactate Dehydrogenase CK-MB (CK-2) C-Reactive Protein NT-Pro-B Natriuret Pep Total Protein Albumin Arterial Blood Glucose Urine WBC (Auto) 12/21/19 12/22/19 12/22/19 17:16 00:01 01:33 WBC RBC Hgb Hct MCHC RDW MCV MCH Lymph % (Auto) [facility] % (Auto) [facility] # Eos # Lymph # (Auto) [facility] # (Auto) Eos # (Auto) Seg Neutrophils % Seg Neuts % (Manual) Baso # (Auto) Lymphocytes % (Manual) Monocytes % (Manual) Eosinophils % (Manual) Basophils % (Manual) Seg Neutrophils # Seg Neutrophils # Man Lymphocytes # (Manual) Monocytes # (Manual) Eosinophils # (Manual) Nucleated RBC % Basophils # (Manual) APTT Heparin Anti-Xa Level 0.10 L ABG pH POC ABG pO2 ABG pO2 ABG HCO3 ABG O2 Saturation ABG Base Excess POC ABG pCO2 ABG Hemoglobin ABG Oxyhemoglobin ABG Glucose Oxyhemoglobin Sodium Potassium Chloride Carbon Dioxide BUN Creatinine Glucose POC Glucose 167 H 179 H Lactic Acid Calcium Phosphorus Magnesium AST ALT Lactate Dehydrogenase CK-MB (CK-2) C-Reactive Protein NT-Pro-B Natriuret Pep Total Protein Albumin Arterial Blood Glucose Urine WBC (Auto) 12/22/19 12/22/19 12/22/19 03:22 05:10 05:10 WBC 13.8 H RBC 3.20 L Hgb 8.9 L Hct 28.1 L MCHC RDW 15.9 H MCV MCH Lymph % (Auto) [facility] % (Auto) [facility] # Eos # Lymph # (Auto) [facility] # (Auto) Eos # (Auto) Seg Neutrophils % Seg Neuts % (Manual) Baso # (Auto) Lymphocytes % (Manual) Monocytes % (Manual) Eosinophils % (Manual) Basophils % (Manual) Seg Neutrophils # Seg Neutrophils # Man Lymphocytes # (Manual) Monocytes # (Manual) Eosinophils # (Manual) Nucleated RBC % Basophils # (Manual) APTT Heparin Anti-Xa Level ABG pH POC ABG pO2 52.3 L ABG pO2 ABG HCO3 ABG O2 Saturation ABG Base Excess POC ABG pCO2 52.9 H ABG Hemoglobin 10.7 L ABG Oxyhemoglobin 84 L ABG Glucose Oxyhemoglobin Sodium Potassium Chloride 96.6 L Carbon Dioxide BUN 25 H Creatinine 0.7 L Glucose 129 H POC Glucose Lactic Acid Calcium Phosphorus Magnesium AST ALT Lactate Dehydrogenase CK-MB (CK-2) C-Reactive Protein NT-Pro-B Natriuret Pep Total Protein Albumin Arterial Blood Glucose Urine WBC (Auto) 12/22/19 12/22/19 12/22/19 05:18 12:32 12:43 WBC RBC Hgb Hct MCHC RDW MCV MCH Lymph % (Auto) [facility] % (Auto) [facility] # Eos # Lymph # (Auto) [facility] # (Auto) Eos # (Auto) Seg Neutrophils % Seg Neuts % (Manual) Baso # (Auto) Lymphocytes % (Manual) Monocytes % (Manual) Eosinophils % (Manual) Basophils % (Manual) Seg Neutrophils # Seg Neutrophils # Man Lymphocytes # (Manual) Monocytes # (Manual) Eosinophils # (Manual) Nucleated RBC % Basophils # (Manual) APTT Heparin Anti-Xa Level 0.18 L ABG pH POC ABG pO2 ABG pO2 ABG HCO3 ABG O2 Saturation ABG Base Excess POC ABG pCO2 ABG Hemoglobin ABG Oxyhemoglobin ABG Glucose Oxyhemoglobin Sodium Potassium Chloride Carbon Dioxide BUN Creatinine Glucose POC Glucose 131 H 208 H Lactic Acid Calcium Phosphorus Magnesium AST ALT Lactate Dehydrogenase CK-MB (CK-2) C-Reactive Protein NT-Pro-B Natriuret Pep Total Protein Albumin Arterial Blood Glucose Urine WBC (Auto) 12/22/19 12/22/19 12/23/19 17:44 23:20 03:51 WBC 15.2 H RBC 3.43 L Hgb 9.6 L Hct 30.3 L MCHC RDW 15.9 H MCV MCH Lymph % (Auto) [facility] % (Auto) [facility] # Eos # Lymph # (Auto) [facility] # (Auto) Eos # (Auto) Seg Neutrophils % Seg Neuts % (Manual) Baso # (Auto) Lymphocytes % (Manual) Monocytes % (Manual) Eosinophils % (Manual) Basophils % (Manual) Seg Neutrophils # Seg Neutrophils # Man Lymphocytes # (Manual) Monocytes # (Manual) Eosinophils # (Manual) Nucleated RBC % Basophils # (Manual) APTT Heparin Anti-Xa Level ABG pH POC ABG pO2 ABG pO2 ABG HCO3 ABG O2 Saturation ABG Base Excess POC ABG pCO2 ABG Hemoglobin ABG Oxyhemoglobin ABG Glucose Oxyhemoglobin Sodium Potassium Chloride Carbon Dioxide BUN Creatinine Glucose POC Glucose 209 H 119 H Lactic Acid Calcium Phosphorus Magnesium AST ALT Lactate Dehydrogenase CK-MB (CK-2) C-Reactive Protein NT-Pro-B Natriuret Pep Total Protein Albumin Arterial Blood Glucose Urine WBC (Auto) 12/23/19 12/23/19 12/23/19 03:51 05:31 12:09 WBC RBC Hgb Hct MCHC RDW MCV MCH Lymph % (Auto) [facility] % (Auto) [facility] # Eos # Lymph # (Auto) [facility] # (Auto) Eos # (Auto) Seg Neutrophils % Seg Neuts % (Manual) Baso # (Auto) Lymphocytes % (Manual) Monocytes % (Manual) Eosinophils % (Manual) Basophils % (Manual) Seg Neutrophils # Seg Neutrophils # Man Lymphocytes # (Manual) Monocytes # (Manual) Eosinophils # (Manual) Nucleated RBC % Basophils # (Manual) APTT Heparin Anti-Xa Level ABG pH POC ABG pO2 ABG pO2 ABG HCO3 ABG O2 Saturation ABG Base Excess POC ABG pCO2 ABG Hemoglobin ABG Oxyhemoglobin ABG Glucose Oxyhemoglobin Sodium Potassium Chloride 97.2 L Carbon Dioxide 31 H BUN 23 H Creatinine 0.6 L Glucose 153 H POC Glucose 149 H 144 H Lactic Acid Calcium Phosphorus Magnesium AST ALT Lactate Dehydrogenase CK-MB (CK-2) C-Reactive Protein NT-Pro-B Natriuret Pep Total Protein Albumin Arterial Blood Glucose Urine WBC (Auto) 12/23/19 12/23/19 12/23/19 15:30 17:49 23:31 WBC RBC Hgb Hct MCHC RDW MCV MCH Lymph % (Auto) [facility] % (Auto) [facility] # Eos # Lymph # (Auto) [facility] # (Auto) Eos # (Auto) Seg Neutrophils % Seg Neuts % (Manual) Baso # (Auto) Lymphocytes % (Manual) Monocytes % (Manual) Eosinophils % (Manual) Basophils % (Manual) Seg Neutrophils # Seg Neutrophils # Man Lymphocytes # (Manual) Monocytes # (Manual) Eosinophils # (Manual) Nucleated RBC % Basophils # (Manual) APTT Heparin Anti-Xa Level 0.21 L ABG pH POC ABG pO2 ABG pO2 ABG HCO3 ABG O2 Saturation ABG Base Excess POC ABG pCO2 ABG Hemoglobin ABG Oxyhemoglobin ABG Glucose Oxyhemoglobin Sodium Potassium Chloride Carbon Dioxide BUN Creatinine Glucose POC Glucose 192 H 151 H Lactic Acid Calcium Phosphorus Magnesium AST ALT Lactate Dehydrogenase CK-MB (CK-2) C-Reactive Protein NT-Pro-B Natriuret Pep Total Protein Albumin Arterial Blood Glucose Urine WBC (Auto) 12/24/19 12/24/19 12/24/19 05:34 12:13 16:50 WBC RBC Hgb Hct MCHC RDW MCV MCH Lymph % (Auto) [facility] % (Auto) [facility] # Eos # Lymph # (Auto) [facility] # (Auto) Eos # (Auto) Seg Neutrophils % Seg Neuts % (Manual) Baso # (Auto) Lymphocytes % (Manual) Monocytes % (Manual) Eosinophils % (Manual) Basophils % (Manual) Seg Neutrophils # Seg Neutrophils # Man Lymphocytes # (Manual) Monocytes # (Manual) Eosinophils # (Manual) Nucleated RBC % Basophils # (Manual) APTT Heparin Anti-Xa Level 0.16 L ABG pH POC ABG pO2 ABG pO2 ABG HCO3 ABG O2 Saturation ABG Base Excess POC ABG pCO2 ABG Hemoglobin ABG Oxyhemoglobin ABG Glucose Oxyhemoglobin Sodium Potassium Chloride Carbon Dioxide BUN Creatinine Glucose POC Glucose 145 H 124 H Lactic Acid Calcium Phosphorus Magnesium AST ALT Lactate Dehydrogenase CK-MB (CK-2) C-Reactive Protein NT-Pro-B Natriuret Pep Total Protein Albumin Arterial Blood Glucose Urine WBC (Auto) 12/24/19 12/25/19 12/25/19 17:53 00:14 04:18 WBC 12.9 H RBC 3.30 L Hgb 9.1 L Hct 28.8 L MCHC RDW 16.4 H MCV MCH Lymph % (Auto) [facility] % (Auto) 7.[address] [facility] # Eos # Lymph # (Auto) [facility] # (Auto) 1.0 H Eos # (Auto) Seg Neutrophils % 75.5 H Seg Neuts % (Manual) Baso # (Auto) Lymphocytes % (Manual) Monocytes % (Manual) Eosinophils % (Manual) Basophils % (Manual) Seg Neutrophils # 9.7 H Seg Neutrophils # Man Lymphocytes # (Manual) Monocytes # (Manual) Eosinophils # (Manual) Nucleated RBC % Basophils # (Manual) APTT Heparin Anti-Xa Level ABG pH POC ABG pO2 ABG pO2 ABG HCO3 ABG O2 Saturation ABG Base Excess POC ABG pCO2 ABG Hemoglobin ABG Oxyhemoglobin ABG Glucose Oxyhemoglobin Sodium Potassium Chloride Carbon Dioxide BUN Creatinine Glucose POC Glucose 164 H 148 H Lactic Acid Calcium Phosphorus Magnesium AST ALT Lactate Dehydrogenase CK-MB (CK-2) C-Reactive Protein NT-Pro-B Natriuret Pep Total Protein Albumin Arterial Blood Glucose Urine WBC (Auto) 12/25/19 12/25/19 12/25/19 04:18 05:38 11:44 WBC RBC Hgb Hct MCHC RDW MCV MCH Lymph % (Auto) [facility] % (Auto) [facility] # Eos # Lymph # (Auto) [facility] # (Auto) Eos # (Auto) Seg Neutrophils % Seg Neuts % (Manual) Baso # (Auto) Lymphocytes % (Manual) Monocytes % (Manual) Eosinophils % (Manual) Basophils % (Manual) Seg Neutrophils # Seg Neutrophils # Man Lymphocytes # (Manual) Monocytes # (Manual) Eosinophils # (Manual) Nucleated RBC % Basophils # (Manual) APTT Heparin Anti-Xa Level ABG pH POC ABG pO2 ABG pO2 ABG HCO3 ABG O2 Saturation ABG Base Excess POC ABG pCO2 ABG Hemoglobin ABG Oxyhemoglobin ABG Glucose Oxyhemoglobin Sodium Potassium Chloride Carbon Dioxide 33 H BUN 27 H Creatinine 0.6 L Glucose 132 H POC Glucose 152 H 166 H Lactic Acid Calcium Phosphorus Magnesium AST ALT Lactate Dehydrogenase CK-MB (CK-2) C-Reactive Protein NT-Pro-B Natriuret Pep Total Protein Albumin Arterial Blood Glucose Urine WBC (Auto) 12/25/19 12/26/19 12/26/19 18:29 00:17 00:18 WBC RBC Hgb Hct MCHC RDW MCV MCH Lymph % (Auto) [facility] % (Auto) [facility] # Eos # Lymph # (Auto) [facility] # (Auto) Eos # (Auto) Seg Neutrophils % Seg Neuts % (Manual) Baso # (Auto) Lymphocytes % (Manual) Monocytes % (Manual) Eosinophils % (Manual) Basophils % (Manual) Seg Neutrophils # Seg Neutrophils # Man Lymphocytes # (Manual) Monocytes # (Manual) Eosinophils # (Manual) Nucleated RBC % Basophils # (Manual) APTT Heparin Anti-Xa Level ABG pH POC ABG pO2 ABG pO2 ABG HCO3 ABG O2 Saturation ABG Base Excess POC ABG pCO2 ABG Hemoglobin ABG Oxyhemoglobin ABG Glucose Oxyhemoglobin Sodium Potassium Chloride 97.8 L Carbon Dioxide BUN 25 H Creatinine 0.6 L Glucose 140 H POC Glucose 194 H 151 H Lactic Acid Calcium Phosphorus Magnesium AST ALT Lactate Dehydrogenase CK-MB (CK-2) C-Reactive Protein NT-Pro-B Natriuret Pep Total Protein Albumin Arterial Blood Glucose Urine WBC (Auto) 12/26/19 12/26/19 12/26/19 05:36 11:41 17:50 WBC RBC Hgb Hct MCHC RDW MCV MCH Lymph % (Auto) [facility] % (Auto) [facility] # Eos # Lymph # (Auto) [facility] # (Auto) Eos # (Auto) Seg Neutrophils % Seg Neuts % (Manual) Baso # (Auto) Lymphocytes % (Manual) Monocytes % (Manual) Eosinophils % (Manual) Basophils % (Manual) Seg Neutrophils # Seg Neutrophils # Man Lymphocytes # (Manual) Monocytes # (Manual) Eosinophils # (Manual) Nucleated RBC % Basophils # (Manual) APTT Heparin Anti-Xa Level ABG pH POC ABG pO2 ABG pO2 ABG HCO3 ABG O2 Saturation ABG Base Excess POC ABG pCO2 ABG Hemoglobin ABG Oxyhemoglobin ABG Glucose Oxyhemoglobin Sodium Potassium Chloride Carbon Dioxide BUN Creatinine Glucose POC Glucose 156 H 148 H 139 H Lactic Acid Calcium Phosphorus Magnesium AST ALT Lactate Dehydrogenase CK-MB (CK-2) C-Reactive Protein NT-Pro-B Natriuret Pep Total Protein Albumin Arterial Blood Glucose Urine WBC (Auto) 12/26/19 12/27/19 12/27/19 23:19 05:34 12:02 WBC RBC Hgb Hct MCHC RDW MCV MCH Lymph % (Auto) [facility] % (Auto) [facility] # Eos # Lymph # (Auto) [facility] # (Auto) Eos # (Auto) Seg Neutrophils % Seg Neuts % (Manual) Baso # (Auto) Lymphocytes % (Manual) Monocytes % (Manual) Eosinophils % (Manual) Basophils % (Manual) Seg Neutrophils # Seg Neutrophils # Man Lymphocytes # (Manual) Monocytes # (Manual) Eosinophils # (Manual) Nucleated RBC % Basophils # (Manual) APTT Heparin Anti-Xa Level ABG pH POC ABG pO2 ABG pO2 ABG HCO3 ABG O2 Saturation ABG Base Excess POC ABG pCO2 ABG Hemoglobin ABG Oxyhemoglobin ABG Glucose Oxyhemoglobin Sodium Potassium Chloride Carbon Dioxide BUN Creatinine Glucose POC Glucose 161 H 145 H 157 H Lactic Acid Calcium Phosphorus Magnesium AST ALT Lactate Dehydrogenase CK-MB (CK-2) C-Reactive Protein NT-Pro-B Natriuret Pep Total Protein Albumin Arterial Blood Glucose Urine WBC (Auto) 12/27/19 12/27/19 12/27/19 17:35 20:11 23:00 WBC RBC Hgb Hct MCHC RDW MCV MCH Lymph % (Auto) [facility] % (Auto) [facility] # Eos # Lymph # (Auto) [facility] # (Auto) Eos # (Auto) Seg Neutrophils % Seg Neuts % (Manual) Baso # (Auto) Lymphocytes % (Manual) Monocytes % (Manual) Eosinophils % (Manual) Basophils % (Manual) Seg Neutrophils # Seg Neutrophils # Man Lymphocytes # (Manual) Monocytes # (Manual) Eosinophils # (Manual) Nucleated RBC % Basophils # (Manual) APTT Heparin Anti-Xa Level 0.19 L ABG pH POC ABG pO2 ABG pO2 ABG HCO3 ABG O2 Saturation ABG Base Excess POC ABG pCO2 ABG Hemoglobin ABG Oxyhemoglobin ABG Glucose Oxyhemoglobin Sodium Potassium Chloride Carbon Dioxide BUN Creatinine Glucose POC Glucose 158 H 155 H Lactic Acid Calcium Phosphorus Magnesium AST ALT Lactate Dehydrogenase CK-MB (CK-2) C-Reactive Protein NT-Pro-B Natriuret Pep Total Protein Albumin Arterial Blood Glucose Urine WBC (Auto) 12/27/19 12/28/19 12/28/19 23:45 02:41 02:41 WBC 13.0 H RBC 3.48 L Hgb 9.5 L Hct 30.6 L MCHC 31 L RDW 16.6 H MCV MCH 27 L Lymph % (Auto) 13.[address] [facility] % (Auto) [address] [facility] # Eos # Lymph # (Auto) [facility] # (Auto) 1.0 H Eos # (Auto) Seg Neutrophils % 76.3 H Seg Neuts % (Manual) Baso # (Auto) Lymphocytes % (Manual) Monocytes % (Manual) Eosinophils % (Manual) Basophils % (Manual) Seg Neutrophils # 9.9 H Seg Neutrophils # Man Lymphocytes # (Manual) Monocytes # (Manual) Eosinophils # (Manual) Nucleated RBC % Basophils # (Manual) APTT Heparin Anti-Xa Level ABG pH POC ABG pO2 ABG pO2 ABG HCO3 ABG O2 Saturation ABG Base Excess POC ABG pCO2 ABG Hemoglobin ABG Oxyhemoglobin ABG Glucose Oxyhemoglobin Sodium Potassium Chloride Carbon Dioxide BUN 22 H Creatinine 0.6 L Glucose 101 H POC Glucose 130 H Lactic Acid Calcium Phosphorus Magnesium AST ALT Lactate Dehydrogenase CK-MB (CK-2) C-Reactive Protein NT-Pro-B Natriuret Pep Total Protein Albumin Arterial Blood Glucose Urine WBC (Auto) 12/28/19 12/28/19 12/28/19 06:00 12:34 18:13 WBC RBC Hgb Hct MCHC RDW MCV MCH Lymph % (Auto) [facility] % (Auto) [facility] # Eos # Lymph # (Auto) [facility] # (Auto) Eos # (Auto) Seg Neutrophils % Seg Neuts % (Manual) Baso # (Auto) Lymphocytes % (Manual) Monocytes % (Manual) Eosinophils % (Manual) Basophils % (Manual) Seg Neutrophils # Seg Neutrophils # Man Lymphocytes # (Manual) Monocytes # (Manual) Eosinophils # (Manual) Nucleated RBC % Basophils # (Manual) APTT Heparin Anti-Xa Level ABG pH POC ABG pO2 ABG pO2 ABG HCO3 ABG O2 Saturation ABG Base Excess POC ABG pCO2 ABG Hemoglobin ABG Oxyhemoglobin ABG Glucose Oxyhemoglobin Sodium Potassium Chloride Carbon Dioxide BUN Creatinine Glucose POC Glucose 150 H 161 H 128 H Lactic Acid Calcium Phosphorus Magnesium AST ALT Lactate Dehydrogenase CK-MB (CK-2) C-Reactive Protein NT-Pro-B Natriuret Pep Total Protein Albumin Arterial Blood Glucose Urine WBC (Auto) 12/28/19 12/29/19 12/29/19 23:36 05:21 11:40 WBC RBC Hgb Hct MCHC RDW MCV MCH Lymph % (Auto) [facility] % (Auto) [facility] # Eos # Lymph # (Auto) [facility] # (Auto) Eos # (Auto) Seg Neutrophils % Seg Neuts % (Manual) Baso # (Auto) Lymphocytes % (Manual) Monocytes % (Manual) Eosinophils % (Manual) Basophils % (Manual) Seg Neutrophils # Seg Neutrophils # Man Lymphocytes # (Manual) Monocytes # (Manual) Eosinophils # (Manual) Nucleated RBC % Basophils # (Manual) APTT Heparin Anti-Xa Level ABG pH POC ABG pO2 ABG pO2 ABG HCO3 ABG O2 Saturation ABG Base Excess POC ABG pCO2 ABG Hemoglobin ABG Oxyhemoglobin ABG Glucose Oxyhemoglobin Sodium Potassium Chloride Carbon Dioxide BUN Creatinine Glucose POC Glucose 137 H 136 H 166 H Lactic Acid Calcium Phosphorus Magnesium AST ALT Lactate Dehydrogenase CK-MB (CK-2) C-Reactive Protein NT-Pro-B Natriuret Pep Total Protein Albumin Arterial Blood Glucose Urine WBC (Auto) 12/29/19 12/29/19 12/29/19 17:23 19:21 23:38 WBC RBC Hgb Hct MCHC RDW MCV MCH Lymph % (Auto) [facility] % (Auto) [facility] # Eos # Lymph # (Auto) [facility] # (Auto) Eos # (Auto) Seg Neutrophils % Seg Neuts % (Manual) Baso # (Auto) Lymphocytes % (Manual) Monocytes % (Manual) Eosinophils % (Manual) Basophils % (Manual) Seg Neutrophils # Seg Neutrophils # Man Lymphocytes # (Manual) Monocytes # (Manual) Eosinophils # (Manual) Nucleated RBC % Basophils # (Manual) APTT Heparin Anti-Xa Level 0.20 L ABG pH POC ABG pO2 ABG pO2 ABG HCO3 ABG O2 Saturation ABG Base Excess POC ABG pCO2 ABG Hemoglobin ABG Oxyhemoglobin ABG Glucose Oxyhemoglobin Sodium Potassium Chloride Carbon Dioxide BUN Creatinine Glucose POC Glucose 144 H 141 H Lactic Acid Calcium Phosphorus Magnesium AST ALT Lactate Dehydrogenase CK-MB (CK-2) C-Reactive Protein NT-Pro-B Natriuret Pep Total Protein Albumin Arterial Blood Glucose Urine WBC (Auto) 12/30/19 12/30/19 12/30/19 03:58 03:58 04:59 WBC RBC 3.54 L Hgb 9.8 L Hct 30.7 L MCHC RDW 16.8 H MCV MCH Lymph % (Auto) [facility] % (Auto) [facility] # Eos # Lymph # (Auto) [facility] # (Auto) Eos # (Auto) Seg Neutrophils % Seg Neuts % (Manual) Baso # (Auto) Lymphocytes % (Manual) Monocytes % (Manual) Eosinophils % (Manual) Basophils % (Manual) Seg Neutrophils # Seg Neutrophils # Man Lymphocytes # (Manual) Monocytes # (Manual) Eosinophils # (Manual) Nucleated RBC % Basophils # (Manual) APTT Heparin Anti-Xa Level ABG pH POC ABG pO2 ABG pO2 ABG HCO3 29.8 H ABG O2 Saturation ABG Base Excess 4.8 H POC ABG pCO2 ABG Hemoglobin 11.2 L ABG Oxyhemoglobin ABG Glucose Oxyhemoglobin 93.8 L Sodium Potassium Chloride 97.8 L Carbon Dioxide BUN 26 H Creatinine Glucose 168 H POC Glucose Lactic Acid Calcium Phosphorus Magnesium AST ALT Lactate Dehydrogenase CK-MB (CK-2) C-Reactive Protein NT-Pro-B Natriuret Pep Total Protein Albumin Arterial Blood Glucose Urine WBC (Auto) 12/30/19 12/30/19 12/30/19 05:45 11:34 17:28 WBC RBC Hgb Hct MCHC RDW MCV MCH Lymph % (Auto) [facility] % (Auto) [facility] # Eos # Lymph # (Auto) [facility] # (Auto) Eos # (Auto) Seg Neutrophils % Seg Neuts % (Manual) Baso # (Auto) Lymphocytes % (Manual) Monocytes % (Manual) Eosinophils % (Manual) Basophils % (Manual) Seg Neutrophils # Seg Neutrophils # Man Lymphocytes # (Manual) Monocytes # (Manual) Eosinophils # (Manual) Nucleated RBC % Basophils # (Manual) APTT Heparin Anti-Xa Level ABG pH POC ABG pO2 ABG pO2 ABG HCO3 ABG O2 Saturation ABG Base Excess POC ABG pCO2 ABG Hemoglobin ABG Oxyhemoglobin ABG Glucose Oxyhemoglobin Sodium Potassium Chloride Carbon Dioxide BUN Creatinine Glucose POC Glucose 163 H 180 H 150 H Lactic Acid Calcium Phosphorus Magnesium AST ALT Lactate Dehydrogenase CK-MB (CK-2) C-Reactive Protein NT-Pro-B Natriuret Pep Total Protein Albumin Arterial Blood Glucose Urine WBC (Auto) 12/30/19 12/31/19 12/31/19 23:43 04:55 05:07 WBC RBC Hgb Hct MCHC RDW MCV MCH Lymph % (Auto) [facility] % (Auto) [facility] # Eos # Lymph # (Auto) [facility] # (Auto) Eos # (Auto) Seg Neutrophils % Seg Neuts % (Manual) Baso # (Auto) Lymphocytes % (Manual) Monocytes % (Manual) Eosinophils % (Manual) Basophils % (Manual) Seg Neutrophils # Seg Neutrophils # Man Lymphocytes # (Manual) Monocytes # (Manual) Eosinophils # (Manual) Nucleated RBC % Basophils # (Manual) APTT Heparin Anti-Xa Level ABG pH POC ABG pO2 ABG pO2 ABG HCO3 ABG O2 Saturation ABG Base Excess POC ABG pCO2 ABG Hemoglobin ABG Oxyhemoglobin ABG Glucose Oxyhemoglobin Sodium Potassium 5.6 H D Chloride Carbon Dioxide BUN 33 H Creatinine Glucose 131 H POC Glucose 142 H 134 H Lactic Acid Calcium Phosphorus Magnesium AST ALT Lactate Dehydrogenase CK-MB (CK-2) C-Reactive Protein NT-Pro-B Natriuret Pep Total Protein Albumin Arterial Blood Glucose Urine WBC (Auto) 12/31/19 12/31/19 12/31/19 11:30 17:19 17:36 WBC RBC Hgb Hct MCHC RDW MCV MCH Lymph % (Auto) [facility] % (Auto) [facility] # Eos # Lymph # (Auto) [facility] # (Auto) Eos # (Auto) Seg Neutrophils % Seg Neuts % (Manual) Baso # (Auto) Lymphocytes % (Manual) Monocytes % (Manual) Eosinophils % (Manual) Basophils % (Manual) Seg Neutrophils # Seg Neutrophils # Man Lymphocytes # (Manual) Monocytes # (Manual) Eosinophils # (Manual) Nucleated RBC % Basophils # (Manual) APTT Heparin Anti-Xa Level ABG pH POC ABG pO2 ABG pO2 ABG HCO3 ABG O2 Saturation ABG Base Excess POC ABG pCO2 ABG Hemoglobin ABG Oxyhemoglobin ABG Glucose Oxyhemoglobin Sodium Potassium Chloride Carbon Dioxide BUN 35 H Creatinine Glucose 156 H POC Glucose 158 H 181 H Lactic Acid Calcium Phosphorus Magnesium AST ALT Lactate Dehydrogenase CK-MB (CK-2) C-Reactive Protein NT-Pro-B Natriuret Pep Total Protein Albumin Arterial Blood Glucose Urine WBC (Auto) 12/31/19 12/31/19 12/31/19 18:16 19:41 21:53 WBC RBC Hgb Hct MCHC RDW MCV MCH Lymph % (Auto) [facility] % (Auto) [facility] # Eos # Lymph # (Auto) [facility] # (Auto) Eos # (Auto) Seg Neutrophils % Seg Neuts % (Manual) Baso # (Auto) Lymphocytes % (Manual) Monocytes % (Manual) Eosinophils % (Manual) Basophils % (Manual) Seg Neutrophils # Seg Neutrophils # Man Lymphocytes # (Manual) Monocytes # (Manual) Eosinophils # (Manual) Nucleated RBC % Basophils # (Manual) APTT Heparin Anti-Xa Level 0.20 L ABG pH POC ABG pO2 ABG pO2 ABG HCO3 ABG O2 Saturation ABG Base Excess POC ABG pCO2 ABG Hemoglobin ABG Oxyhemoglobin ABG Glucose Oxyhemoglobin Sodium Potassium Chloride Carbon Dioxide BUN 34 H Creatinine Glucose 169 H POC Glucose 141 H Lactic Acid Calcium Phosphorus Magnesium AST ALT Lactate Dehydrogenase CK-MB (CK-2) C-Reactive Protein NT-Pro-B Natriuret Pep Total Protein Albumin Arterial Blood Glucose Urine WBC (Auto) 12/31/19 01/01/20 01/01/20 23:51 05:17 10:40 WBC RBC Hgb Hct MCHC RDW MCV MCH Lymph % (Auto) [facility] % (Auto) [facility] # Eos # Lymph # (Auto) [facility] # (Auto) Eos # (Auto) Seg Neutrophils % Seg Neuts % (Manual) Baso # (Auto) Lymphocytes % (Manual) Monocytes % (Manual) Eosinophils % (Manual) Basophils % (Manual) Seg Neutrophils # Seg Neutrophils # Man Lymphocytes # (Manual) Monocytes # (Manual) Eosinophils # (Manual) Nucleated RBC % Basophils # (Manual) APTT Heparin Anti-Xa Level ABG pH POC ABG pO2 ABG pO2 ABG HCO3 ABG O2 Saturation ABG Base Excess POC ABG pCO2 ABG Hemoglobin ABG Oxyhemoglobin ABG Glucose Oxyhemoglobin Sodium Potassium Chloride Carbon Dioxide BUN 31 H Creatinine 0.7 L Glucose 137 H POC Glucose 131 H 155 H Lactic Acid Calcium Phosphorus Magnesium AST 73 H ALT 97 H Lactate Dehydrogenase CK-MB (CK-2) C-Reactive Protein NT-Pro-B Natriuret Pep 3866 H Total Protein Albumin 2.8 L Arterial Blood Glucose Urine WBC (Auto) 01/01/20 01/01/20 01/01/20 12:26 15:33 17:53 WBC 14.3 H RBC 3.35 L Hgb 9.1 L Hct 28.8 L MCHC RDW 17.0 H MCV MCH 27 L Lymph % (Auto) 7.[address] [facility] % (Auto) 7.[address] [facility] # Eos # Lymph # (Auto) 1.[address] [facility] # (Auto) 1.1 H Eos # (Auto) Seg Neutrophils % 83.3 H Seg Neuts % (Manual) Baso # (Auto) Lymphocytes % (Manual) Monocytes % (Manual) Eosinophils % (Manual) Basophils % (Manual) Seg Neutrophils # 12.0 H Seg Neutrophils # Man Lymphocytes # (Manual) Monocytes # (Manual) Eosinophils # (Manual) Nucleated RBC % Basophils # (Manual) APTT Heparin Anti-Xa Level ABG pH POC ABG pO2 ABG pO2 ABG HCO3 ABG O2 Saturation ABG Base Excess POC ABG pCO2 ABG Hemoglobin ABG Oxyhemoglobin ABG Glucose Oxyhemoglobin Sodium Potassium Chloride Carbon Dioxide BUN Creatinine Glucose POC Glucose 128 H 128 H Lactic Acid Calcium Phosphorus Magnesium AST ALT Lactate Dehydrogenase CK-MB (CK-2) C-Reactive Protein NT-Pro-B Natriuret Pep Total Protein Albumin Arterial Blood Glucose Urine WBC (Auto) 01/01/20 01/02/20 01/02/20 23:04 05:39 07:00 WBC RBC Hgb Hct MCHC RDW MCV MCH Lymph % (Auto) [facility] % (Auto) [facility] # Eos # Lymph # (Auto) [facility] # (Auto) Eos # (Auto) Seg Neutrophils % Seg Neuts % (Manual) Baso # (Auto) Lymphocytes % (Manual) Monocytes % (Manual) Eosinophils % (Manual) Basophils % (Manual) Seg Neutrophils # Seg Neutrophils # Man Lymphocytes # (Manual) Monocytes # (Manual) Eosinophils # (Manual) Nucleated RBC % Basophils # (Manual) APTT Heparin Anti-Xa Level 0.13 L ABG pH POC ABG pO2 ABG pO2 ABG HCO3 ABG O2 Saturation ABG Base Excess POC ABG pCO2 ABG Hemoglobin ABG Oxyhemoglobin ABG Glucose Oxyhemoglobin Sodium Potassium Chloride Carbon Dioxide BUN Creatinine Glucose POC Glucose 120 H 169 H Lactic Acid Calcium Phosphorus Magnesium AST ALT Lactate Dehydrogenase CK-MB (CK-2) C-Reactive Protein NT-Pro-B Natriuret Pep Total Protein Albumin Arterial Blood Glucose Urine WBC (Auto) 01/02/20 01/02/20 01/02/20 12:15 14:06 17:58 WBC RBC Hgb Hct MCHC RDW MCV MCH Lymph % (Auto) [facility] % (Auto) [facility] # Eos # Lymph # (Auto) [facility] # (Auto) Eos # (Auto) Seg Neutrophils % Seg Neuts % (Manual) Baso # (Auto) Lymphocytes % (Manual) Monocytes % (Manual) Eosinophils % (Manual) Basophils % (Manual) Seg Neutrophils # Seg Neutrophils # Man Lymphocytes # (Manual) Monocytes # (Manual) Eosinophils # (Manual) Nucleated RBC % Basophils # (Manual) APTT Heparin Anti-Xa Level < 0.10 L ABG pH POC ABG pO2 ABG pO2 ABG HCO3 ABG O2 Saturation ABG Base Excess POC ABG pCO2 ABG Hemoglobin ABG Oxyhemoglobin ABG Glucose Oxyhemoglobin Sodium Potassium Chloride Carbon Dioxide BUN Creatinine Glucose POC Glucose 190 H 198 H Lactic Acid Calcium Phosphorus Magnesium AST ALT Lactate Dehydrogenase CK-MB (CK-2) C-Reactive Protein NT-Pro-B Natriuret Pep Total Protein Albumin Arterial Blood Glucose Urine WBC (Auto) 01/02/20 01/02/20 01/03/20 21:43 23:33 05:42 WBC RBC Hgb Hct MCHC RDW MCV MCH Lymph % (Auto) [facility] % (Auto) [facility] # Eos # Lymph # (Auto) [facility] # (Auto) Eos # (Auto) Seg Neutrophils % Seg Neuts % (Manual) Baso # (Auto) Lymphocytes % (Manual) Monocytes % (Manual) Eosinophils % (Manual) Basophils % (Manual) Seg Neutrophils # Seg Neutrophils # Man Lymphocytes # (Manual) Monocytes # (Manual) Eosinophils # (Manual) Nucleated RBC % Basophils # (Manual) APTT Heparin Anti-Xa Level 0.10 L ABG pH POC ABG pO2 ABG pO2 ABG HCO3 ABG O2 Saturation ABG Base Excess POC ABG pCO2 ABG Hemoglobin ABG Oxyhemoglobin ABG Glucose Oxyhemoglobin Sodium Potassium Chloride Carbon Dioxide BUN Creatinine Glucose POC Glucose 180 H 163 H Lactic Acid Calcium Phosphorus Magnesium AST ALT Lactate Dehydrogenase CK-MB (CK-2) C-Reactive Protein NT-Pro-B Natriuret Pep Total Protein Albumin Arterial Blood Glucose Urine WBC (Auto) 01/03/20 01/03/20 01/03/20 06:50 07:25 07:45 WBC 12.1 H RBC 3.35 L Hgb 9.0 L Hct 28.9 L MCHC 31 L RDW 16.6 H MCV MCH 27 L Lymph % (Auto) 13.[address] [facility] % (Auto) 8.[address] [facility] # Eos # Lymph # (Auto) [facility] # (Auto) 1.0 H Eos # (Auto) Seg Neutrophils % 75.9 H Seg Neuts % (Manual) Baso # (Auto) Lymphocytes % (Manual) Monocytes % (Manual) Eosinophils % (Manual) Basophils % (Manual) Seg Neutrophils # 9.2 H Seg Neutrophils # Man Lymphocytes # (Manual) Monocytes # (Manual) Eosinophils # (Manual) Nucleated RBC % Basophils # (Manual) APTT Heparin Anti-Xa Level 0.29 L ABG pH POC ABG pO2 ABG pO2 ABG HCO3 ABG O2 Saturation ABG Base Excess POC ABG pCO2 ABG Hemoglobin ABG Oxyhemoglobin ABG Glucose Oxyhemoglobin Sodium Potassium 3.3 L D Chloride Carbon Dioxide 35 H D BUN 23 H Creatinine 0.6 L Glucose 149 H POC Glucose Lactic Acid Calcium Phosphorus Magnesium AST ALT 88 H Lactate Dehydrogenase CK-MB (CK-2) C-Reactive Protein NT-Pro-B Natriuret Pep Total Protein 6.2 L Albumin 2.9 L Arterial Blood Glucose Urine WBC (Auto) 01/03/20 01/03/20 01/03/20 12:05 17:42 18:30 WBC RBC Hgb Hct MCHC RDW MCV MCH Lymph % (Auto) [facility] % (Auto) [facility] # Eos # Lymph # (Auto) [facility] # (Auto) Eos # (Auto) Seg Neutrophils % Seg Neuts % (Manual) Baso # (Auto) Lymphocytes % (Manual) Monocytes % (Manual) Eosinophils % (Manual) Basophils % (Manual) Seg Neutrophils # Seg Neutrophils # Man Lymphocytes # (Manual) Monocytes # (Manual) Eosinophils # (Manual) Nucleated RBC % Basophils # (Manual) APTT Heparin Anti-Xa Level ABG pH POC ABG pO2 ABG pO2 70.7 L ABG HCO3 36.1 H ABG O2 Saturation 94.4 L ABG Base Excess 10.0 H POC ABG pCO2 ABG Hemoglobin 9.7 L ABG Oxyhemoglobin ABG Glucose Oxyhemoglobin 91.8 L Sodium Potassium Chloride Carbon Dioxide BUN Creatinine Glucose POC Glucose 128 H 132 H Lactic Acid Calcium Phosphorus Magnesium AST ALT Lactate Dehydrogenase CK-MB (CK-2) C-Reactive Protein NT-Pro-B Natriuret Pep Total Protein Albumin Arterial Blood Glucose Urine WBC (Auto) 01/04/20 01/04/20 01/04/20 00:10 04:26 05:23 WBC RBC Hgb Hct MCHC RDW MCV MCH Lymph % (Auto) [facility] % (Auto) [facility] # Eos # Lymph # (Auto) [facility] # (Auto) Eos # (Auto) Seg Neutrophils % Seg Neuts % (Manual) Baso # (Auto) Lymphocytes % (Manual) Monocytes % (Manual) Eosinophils % (Manual) Basophils % (Manual) Seg Neutrophils # Seg Neutrophils # Man Lymphocytes # (Manual) Monocytes # (Manual) Eosinophils # (Manual) Nucleated RBC % Basophils # (Manual) APTT Heparin Anti-Xa Level 0.16 L ABG pH POC ABG pO2 ABG pO2 ABG HCO3 ABG O2 Saturation ABG Base Excess POC ABG pCO2 ABG Hemoglobin ABG Oxyhemoglobin ABG Glucose Oxyhemoglobin Sodium Potassium Chloride Carbon Dioxide BUN Creatinine Glucose POC Glucose 121 H 119 H Lactic Acid Calcium Phosphorus Magnesium AST ALT Lactate Dehydrogenase CK-MB (CK-2) C-Reactive Protein NT-Pro-B Natriuret Pep Total Protein Albumin Arterial Blood Glucose Urine WBC (Auto) 01/04/20 01/04/20 01/04/20 09:50 09:50 12:18 WBC 15.4 H RBC 3.30 L Hgb 8.7 L Hct 28.2 L MCHC 31 L RDW 17.0 H MCV MCH 26 L Lymph % (Auto) [facility] % (Auto) 7.[address] [facility] # Eos # Lymph # (Auto) [facility] # (Auto) 1.2 H Eos # (Auto) Seg Neutrophils % 75.4 H Seg Neuts % (Manual) Baso # (Auto) Lymphocytes % (Manual) Monocytes % (Manual) Eosinophils % (Manual) Basophils % (Manual) Seg Neutrophils # 11.6 H Seg Neutrophils # Man Lymphocytes # (Manual) Monocytes # (Manual) Eosinophils # (Manual) Nucleated RBC % Basophils # (Manual) APTT Heparin Anti-Xa Level ABG pH POC ABG pO2 ABG pO2 ABG HCO3 ABG O2 Saturation ABG Base Excess POC ABG pCO2 ABG Hemoglobin ABG Oxyhemoglobin ABG Glucose Oxyhemoglobin Sodium 148 H Potassium 3.5 L Chloride Carbon Dioxide 32 H BUN Creatinine 0.6 L Glucose 114 H POC Glucose 111 H Lactic Acid Calcium Phosphorus Magnesium AST ALT 59 H Lactate Dehydrogenase CK-MB (CK-2) C-Reactive Protein NT-Pro-B Natriuret Pep Total Protein Albumin 2.6 L Arterial Blood Glucose Urine WBC (Auto) 01/05/20 01/05/20 01/05/20 04:05 04:05 05:19 WBC 11.7 H RBC 3.50 L Hgb 9.3 L Hct 29.9 L MCHC 31 L RDW 16.6 H MCV MCH 27 L Lymph % (Auto) 13.[address] [facility] % (Auto) 9.[address] [facility] # Eos # Lymph # (Auto) [facility] # (Auto) 1.1 H Eos # (Auto) Seg Neutrophils % 74.0 H Seg Neuts % (Manual) Baso # (Auto) Lymphocytes % (Manual) Monocytes % (Manual) Eosinophils % (Manual) Basophils % (Manual) Seg Neutrophils # 8.6 H Seg Neutrophils # Man Lymphocytes # (Manual) Monocytes # (Manual) Eosinophils # (Manual) Nucleated RBC % Basophils # (Manual) APTT Heparin Anti-Xa Level ABG pH POC ABG pO2 ABG pO2 ABG HCO3 ABG O2 Saturation ABG Base Excess POC ABG pCO2 ABG Hemoglobin ABG Oxyhemoglobin ABG Glucose Oxyhemoglobin Sodium 151 H Potassium Chloride Carbon Dioxide 34 H BUN Creatinine 0.7 L Glucose POC Glucose 112 H Lactic Acid Calcium Phosphorus Magnesium AST ALT 59 H Lactate Dehydrogenase CK-MB (CK-2) C-Reactive Protein NT-Pro-B Natriuret Pep Total Protein 5.8 L Albumin 2.6 L Arterial Blood Glucose Urine WBC (Auto) 01/05/20 01/06/20 01/06/20 16:04 00:23 04:44 WBC RBC 3.36 L Hgb 8.9 L Hct 28.7 L MCHC 31 L RDW 16.9 H MCV MCH 26 L Lymph % (Auto) [facility] % (Auto) 9.[address] [facility] # Eos # Lymph # (Auto) [facility] # (Auto) Eos # (Auto) Seg Neutrophils % Seg Neuts % (Manual) Baso # (Auto) Lymphocytes % (Manual) Monocytes % (Manual) Eosinophils % (Manual) Basophils % (Manual) Seg Neutrophils # Seg Neutrophils # Man Lymphocytes # (Manual) Monocytes # (Manual) Eosinophils # (Manual) Nucleated RBC % Basophils # (Manual) APTT Heparin Anti-Xa Level ABG pH POC ABG pO2 ABG pO2 ABG HCO3 ABG O2 Saturation ABG Base Excess POC ABG pCO2 ABG Hemoglobin ABG Oxyhemoglobin ABG Glucose Oxyhemoglobin Sodium 151 H Potassium 3.2 L Chloride Carbon Dioxide 34 H BUN Creatinine 0.6 L Glucose POC Glucose 107 H Lactic Acid Calcium Phosphorus Magnesium AST ALT Lactate Dehydrogenase CK-MB (CK-2) C-Reactive Protein NT-Pro-B Natriuret Pep Total Protein Albumin Arterial Blood Glucose Urine WBC (Auto) 01/06/20 01/06/20 01/06/20 04:44 05:33 12:04 WBC RBC Hgb Hct MCHC RDW MCV MCH Lymph % (Auto) [facility] % (Auto) [facility] # Eos # Lymph # (Auto) [facility] # (Auto) Eos # (Auto) Seg Neutrophils % Seg Neuts % (Manual) Baso # (Auto) Lymphocytes % (Manual) Monocytes % (Manual) Eosinophils % (Manual) Basophils % (Manual) Seg Neutrophils # Seg Neutrophils # Man Lymphocytes # (Manual) Monocytes # (Manual) Eosinophils # (Manual) Nucleated RBC % Basophils # (Manual) APTT Heparin Anti-Xa Level ABG pH POC ABG pO2 ABG pO2 ABG HCO3 ABG O2 Saturation ABG Base Excess POC ABG pCO2 ABG Hemoglobin ABG Oxyhemoglobin ABG Glucose Oxyhemoglobin Sodium 151 H Potassium 3.4 L Chloride Carbon Dioxide 33 H BUN Creatinine 0.6 L Glucose 118 H POC Glucose 118 H 123 H Lactic Acid Calcium Phosphorus Magnesium AST ALT Lactate Dehydrogenase CK-MB (CK-2) C-Reactive Protein NT-Pro-B Natriuret Pep Total Protein 6.2 L Albumin 2.6 L Arterial Blood Glucose Urine WBC (Auto) 01/06/20 01/07/20 01/07/20 17:54 00:06 04:10 WBC RBC 3.42 L Hgb 8.9 L Hct 29.0 L MCHC 31 L RDW 17.1 H MCV MCH 26 L Lymph % (Auto) [facility] % (Auto) 8.[address] [facility] # Eos # Lymph # (Auto) [facility] # (Auto) Eos # (Auto) Seg Neutrophils % Seg Neuts % (Manual) Baso # (Auto) Lymphocytes % (Manual) Monocytes % (Manual) Eosinophils % (Manual) Basophils % (Manual) Seg Neutrophils # Seg Neutrophils # Man Lymphocytes # (Manual) Monocytes # (Manual) Eosinophils # (Manual) Nucleated RBC % Basophils # (Manual) APTT Heparin Anti-Xa Level ABG pH POC ABG pO2 ABG pO2 ABG HCO3 ABG O2 Saturation ABG Base Excess POC ABG pCO2 ABG Hemoglobin ABG Oxyhemoglobin ABG Glucose Oxyhemoglobin Sodium Potassium Chloride Carbon Dioxide BUN Creatinine Glucose POC Glucose 112 H 126 H Lactic Acid Calcium Phosphorus Magnesium AST ALT Lactate Dehydrogenase CK-MB (CK-2) C-Reactive Protein NT-Pro-B Natriuret Pep Total Protein Albumin Arterial Blood Glucose Urine WBC (Auto) 01/07/20 01/07/20 01/07/20 04:10 05:59 12:27 WBC RBC Hgb Hct MCHC RDW MCV MCH Lymph % (Auto) [facility] % (Auto) [facility] # Eos # Lymph # (Auto) [facility] # (Auto) Eos # (Auto) Seg Neutrophils % Seg Neuts % (Manual) Baso # (Auto) Lymphocytes % (Manual) Monocytes % (Manual) Eosinophils % (Manual) Basophils % (Manual) Seg Neutrophils # Seg Neutrophils # Man Lymphocytes # (Manual) Monocytes # (Manual) Eosinophils # (Manual) Nucleated RBC % Basophils # (Manual) APTT Heparin Anti-Xa Level ABG pH POC ABG pO2 ABG pO2 ABG HCO3 ABG O2 Saturation ABG Base Excess POC ABG pCO2 ABG Hemoglobin ABG Oxyhemoglobin ABG Glucose Oxyhemoglobin Sodium 153 H Potassium 3.5 L Chloride Carbon Dioxide 34 H BUN Creatinine 0.6 L Glucose 121 H POC Glucose 121 H 126 H Lactic Acid Calcium Phosphorus Magnesium AST ALT Lactate Dehydrogenase CK-MB (CK-2) C-Reactive Protein NT-Pro-B Natriuret Pep Total Protein 5.9 L Albumin 2.4 L Arterial Blood Glucose Urine WBC (Auto) 01/07/20 01/08/20 01/08/20 18:12 00:03 05:41 WBC RBC Hgb Hct MCHC RDW MCV MCH Lymph % (Auto) [facility] % (Auto) [facility] # Eos # Lymph # (Auto) [facility] # (Auto) Eos # (Auto) Seg Neutrophils % Seg Neuts % (Manual) Baso # (Auto) Lymphocytes % (Manual) Monocytes % (Manual) Eosinophils % (Manual) Basophils % (Manual) Seg Neutrophils # Seg Neutrophils # Man Lymphocytes # (Manual) Monocytes # (Manual) Eosinophils # (Manual) Nucleated RBC % Basophils # (Manual) APTT Heparin Anti-Xa Level ABG pH POC ABG pO2 ABG pO2 ABG HCO3 ABG O2 Saturation ABG Base Excess POC ABG pCO2 ABG Hemoglobin ABG Oxyhemoglobin ABG Glucose Oxyhemoglobin Sodium Potassium Chloride Carbon Dioxide BUN Creatinine Glucose POC Glucose 124 H 130 H 138 H Lactic Acid Calcium Phosphorus Magnesium AST ALT Lactate Dehydrogenase CK-MB (CK-2) C-Reactive Protein NT-Pro-B Natriuret Pep Total Protein Albumin Arterial Blood Glucose Urine WBC (Auto) 01/08/20 01/08/20 01/08/20 09:28 11:42 18:21 WBC RBC Hgb Hct MCHC RDW MCV MCH Lymph % (Auto) [facility] % (Auto) [facility] # Eos # Lymph # (Auto) [facility] # (Auto) Eos # (Auto) Seg Neutrophils % Seg Neuts % (Manual) Baso # (Auto) Lymphocytes % (Manual) Monocytes % (Manual) Eosinophils % (Manual) Basophils % (Manual) Seg Neutrophils # Seg Neutrophils # Man Lymphocytes # (Manual) Monocytes # (Manual) Eosinophils # (Manual) Nucleated RBC % Basophils # (Manual) APTT Heparin Anti-Xa Level ABG pH POC ABG pO2 ABG pO2 ABG HCO3 ABG O2 Saturation ABG Base Excess POC ABG pCO2 ABG Hemoglobin ABG Oxyhemoglobin ABG Glucose Oxyhemoglobin Sodium Potassium Chloride Carbon Dioxide BUN Creatinine Glucose POC Glucose 181 H 150 H 129 H Lactic Acid Calcium Phosphorus Magnesium AST ALT Lactate Dehydrogenase CK-MB (CK-2) C-Reactive Protein NT-Pro-B Natriuret Pep Total Protein Albumin Arterial Blood Glucose Urine WBC (Auto) 10/16/20 10/16/20 10/17/20 19:25 23:55 04:11 WBC RBC 3.43 L Hgb 8.9 L Hct 28.7 L MCHC 31 L RDW 17.6 H MCV MCH 26 L Lymph % (Auto) [facility] % (Auto) 8.[address] [facility] # Eos # Lymph # (Auto) [facility] # (Auto) Eos # (Auto) Seg Neutrophils % Seg Neuts % (Manual) Baso # (Auto) Lymphocytes % (Manual) Monocytes % (Manual) Eosinophils % (Manual) Basophils % (Manual) Seg Neutrophils # Seg Neutrophils # Man Lymphocytes # (Manual) Monocytes # (Manual) Eosinophils # (Manual) Nucleated RBC % Basophils # (Manual) APTT Heparin Anti-Xa Level ABG pH POC ABG pO2 ABG pO2 ABG HCO3 ABG O2 Saturation ABG Base Excess POC ABG pCO2 ABG Hemoglobin ABG Oxyhemoglobin ABG Glucose Oxyhemoglobin Sodium Potassium Chloride Carbon Dioxide BUN Creatinine 0.7 L Glucose 117 H POC Glucose 132 H Lactic Acid Calcium Phosphorus Magnesium AST ALT Lactate Dehydrogenase CK-MB (CK-2) C-Reactive Protein NT-Pro-B Natriuret Pep Total Protein Albumin Arterial Blood Glucose Urine WBC (Auto) 01/09/20 01/09/20 01/09/20 04:11 05:38 22:58 WBC RBC Hgb Hct MCHC RDW MCV MCH Lymph % (Auto) [facility] % (Auto) [facility] # Eos # Lymph # (Auto) [facility] # (Auto) Eos # (Auto) Seg Neutrophils % Seg Neuts % (Manual) Baso # (Auto) Lymphocytes % (Manual) Monocytes % (Manual) Eosinophils % (Manual) Basophils % (Manual) Seg Neutrophils # Seg Neutrophils # Man Lymphocytes # (Manual) Monocytes # (Manual) Eosinophils # (Manual) Nucleated RBC % Basophils # (Manual) APTT Heparin Anti-Xa Level ABG pH POC ABG pO2 ABG pO2 ABG HCO3 ABG O2 Saturation ABG Base Excess POC ABG pCO2 ABG Hemoglobin ABG Oxyhemoglobin ABG Glucose Oxyhemoglobin Sodium 147 H Potassium 3.3 L D Chloride Carbon Dioxide 32 H BUN Creatinine 0.6 L Glucose 106 H POC Glucose 107 H 113 H Lactic Acid Calcium Phosphorus Magnesium AST ALT Lactate Dehydrogenase CK-MB (CK-2) C-Reactive Protein NT-Pro-B Natriuret Pep Total Protein Albumin Arterial Blood Glucose Urine WBC (Auto) 01/10/20 01/10/20 01/10/20 04:05 11:36 17:54 WBC RBC Hgb Hct MCHC RDW MCV MCH Lymph % (Auto) [facility] % (Auto) [facility] # Eos # Lymph # (Auto) [facility] # (Auto) Eos # (Auto) Seg Neutrophils % Seg Neuts % (Manual) Baso # (Auto) Lymphocytes % (Manual) Monocytes % (Manual) Eosinophils % (Manual) Basophils % (Manual) Seg Neutrophils # Seg Neutrophils # Man Lymphocytes # (Manual) Monocytes # (Manual) Eosinophils # (Manual) Nucleated RBC % Basophils # (Manual) APTT Heparin Anti-Xa Level ABG pH POC ABG pO2 ABG pO2 ABG HCO3 ABG O2 Saturation ABG Base Excess POC ABG pCO2 ABG Hemoglobin ABG Oxyhemoglobin ABG Glucose Oxyhemoglobin Sodium Potassium Chloride Carbon Dioxide BUN Creatinine 0.7 L Glucose 110 H POC Glucose 129 H 117 H Lactic Acid Calcium Phosphorus Magnesium AST ALT Lactate Dehydrogenase CK-MB (CK-2) C-Reactive Protein NT-Pro-B Natriuret Pep Total Protein Albumin Arterial Blood Glucose Urine WBC (Auto) 01/10/20 01/11/20 01/11/20 23:52 03:19 12:09 WBC RBC Hgb Hct MCHC RDW MCV MCH Lymph % (Auto) [facility] % (Auto) [facility] # Eos # Lymph # (Auto) [facility] # (Auto) Eos # (Auto) Seg Neutrophils % Seg Neuts % (Manual) Baso # (Auto) Lymphocytes % (Manual) Monocytes % (Manual) Eosinophils % (Manual) Basophils % (Manual) Seg Neutrophils # Seg Neutrophils # Man Lymphocytes # (Manual) Monocytes # (Manual) Eosinophils # (Manual) Nucleated RBC % Basophils # (Manual) APTT Heparin Anti-Xa Level ABG pH POC ABG pO2 ABG pO2 ABG HCO3 ABG O2 Saturation ABG Base Excess POC ABG pCO2 ABG Hemoglobin ABG Oxyhemoglobin ABG Glucose Oxyhemoglobin Sodium Potassium Chloride Carbon Dioxide BUN Creatinine Glucose POC Glucose 117 H 136 H 115 H Lactic Acid Calcium Phosphorus Magnesium AST ALT Lactate Dehydrogenase CK-MB (CK-2) C-Reactive Protein NT-Pro-B Natriuret Pep Total Protein Albumin Arterial Blood Glucose Urine WBC (Auto) 01/11/20 01/11/20 01/12/20 18:27 23:28 00:23 WBC RBC Hgb 9.8 L Hct 31.6 L MCHC 31 L RDW 17.8 H MCV 83 L MCH 26 L Lymph % (Auto) [facility] % (Auto) 8.[address] [facility] # Eos # Lymph # (Auto) [facility] # (Auto) Eos # (Auto) Seg Neutrophils % Seg Neuts % (Manual) Baso # (Auto) Lymphocytes % (Manual) Monocytes % (Manual) Eosinophils % (Manual) Basophils % (Manual) Seg Neutrophils # Seg Neutrophils # Man Lymphocytes # (Manual) Monocytes # (Manual) Eosinophils # (Manual) Nucleated RBC % Basophils # (Manual) APTT Heparin Anti-Xa Level ABG pH POC ABG pO2 ABG pO2 ABG HCO3 ABG O2 Saturation ABG Base Excess POC ABG pCO2 ABG Hemoglobin ABG Oxyhemoglobin ABG Glucose Oxyhemoglobin Sodium Potassium Chloride Carbon Dioxide BUN Creatinine Glucose POC Glucose 118 H 122 H Lactic Acid Calcium Phosphorus Magnesium AST ALT Lactate Dehydrogenase CK-MB (CK-2) C-Reactive Protein NT-Pro-B Natriuret Pep Total Protein Albumin Arterial Blood Glucose Urine WBC (Auto) 01/12/20 01/12/20 01/12/20 00:23 04:18 04:18 WBC RBC Hgb 9.6 L Hct 30.9 L MCHC 31 L RDW 17.3 H MCV 81 L MCH 25 L Lymph % (Auto) [facility] % (Auto) [facility] # Eos # Lymph # (Auto) [facility] # (Auto) Eos # (Auto) Seg Neutrophils % Seg Neuts % (Manual) Baso # (Auto) Lymphocytes % (Manual) Monocytes % (Manual) Eosinophils % (Manual) Basophils % (Manual) Seg Neutrophils # Seg Neutrophils # Man Lymphocytes # (Manual) Monocytes # (Manual) Eosinophils # (Manual) Nucleated RBC % Basophils # (Manual) APTT Heparin Anti-Xa Level ABG pH POC ABG pO2 ABG pO2 ABG HCO3 ABG O2 Saturation ABG Base Excess POC ABG pCO2 ABG Hemoglobin ABG Oxyhemoglobin ABG Glucose Oxyhemoglobin Sodium Potassium Chloride Carbon Dioxide BUN Creatinine 0.7 L 0.7 L Glucose 111 H 108 H POC Glucose Lactic Acid Calcium Phosphorus Magnesium AST ALT Lactate Dehydrogenase CK-MB (CK-2) C-Reactive Protein NT-Pro-B Natriuret Pep Total Protein Albumin 2.6 L Arterial Blood Glucose Urine WBC (Auto) 10/01/12/20 01/12/20 06:03 12:27 13:58 WBC RBC Hgb Hct MCHC RDW MCV MCH Lymph % (Auto) [facility] % (Auto) [facility] # Eos # Lymph # (Auto) [facility] # (Auto) Eos # (Auto) Seg Neutrophils % Seg Neuts % (Manual) Baso # (Auto) Lymphocytes % (Manual) Monocytes % (Manual) Eosinophils % (Manual) Basophils % (Manual) Seg Neutrophils # Seg Neutrophils # Man Lymphocytes # (Manual) Monocytes # (Manual) Eosinophils # (Manual) Nucleated RBC % Basophils # (Manual) APTT Heparin Anti-Xa Level ABG pH 7.453 H POC ABG pO2 76.6 L ABG pO2 ABG HCO3 ABG O2 Saturation ABG Base Excess POC ABG pCO2 ABG Hemoglobin 10.3 L ABG Oxyhemoglobin ABG Glucose 99 H Oxyhemoglobin Sodium Potassium Chloride Carbon Dioxide BUN Creatinine Glucose POC Glucose 128 H 121 H Lactic Acid Calcium Phosphorus Magnesium AST ALT Lactate Dehydrogenase CK-MB (CK-2) C-Reactive Protein NT-Pro-B Natriuret Pep Total Protein Albumin Arterial Blood Glucose 99 H Urine WBC (Auto) 01/12/20 18:24 WBC RBC Hgb Hct MCHC RDW MCV MCH Lymph % (Auto) [facility] % (Auto) [facility] # Eos # Lymph # (Auto) [facility] # (Auto) Eos # (Auto) Seg Neutrophils % Seg Neuts % (Manual) Baso # (Auto) Lymphocytes % (Manual) Monocytes % (Manual) Eosinophils % (Manual) Basophils % (Manual) Seg Neutrophils # Seg Neutrophils # Man Lymphocytes # (Manual) Monocytes # (Manual) Eosinophils # (Manual) Nucleated RBC % Basophils # (Manual) APTT Heparin Anti-Xa Level ABG pH POC ABG pO2 ABG pO2 ABG HCO3 ABG O2 Saturation ABG Base Excess POC ABG pCO2 ABG Hemoglobin ABG Oxyhemoglobin ABG Glucose Oxyhemoglobin Sodium Potassium Chloride Carbon Dioxide BUN Creatinine Glucose POC Glucose 119 H Lactic Acid Calcium Phosphorus Magnesium AST ALT Lactate Dehydrogenase CK-MB (CK-2) C-Reactive Protein NT-Pro-B Natriuret Pep Total Protein Albumin Arterial Blood Glucose Urine WBC (Auto) Allied health notes reviewed: nursing
--- NOTE | 2020-01-13 16:25 | Progress Note ---
Assessment and Plan 64 yo M with pSBO vs ileus Plan: 1. Advance tube feeds to goal as ordered 2. continue bowel regimen as ordered 3. IVF per 1' service 4. monitor lytes and replace as needed 5. Recommend OOB to chair if possible, PT consult Will sign off. Thank you. Please call with questions. Subjective Date of service: 01/13/20 Narrative: Patient seen and examined. Complains of some pain near the trach site. No fevers or chills. No nausea or vomiting. He is tolerating tube feeds which are currently at 50 cc an hour. Objective Vital Signs - 12hr 01/13/20 01/13/20 01/13/20 04:30 04:45 05:00 Temperature Pulse Rate 77 77 77 Pulse Rate [ From Monitor] Respiratory 23 24 24 Rate Respiratory Rate [Abdomen] Blood Pressure 96/67 95/64 97/67 O2 Sat by Pulse 100 99 99 Oximetry O2 Sat by Pulse Oximetry [ Assessment] 01/13/20 01/13/20 01/13/20 05:15 05:30 05:45 Temperature Pulse Rate 75 79 76 Pulse Rate [ From Monitor] Respiratory 26 H 20 17 Rate Respiratory Rate [Abdomen] Blood Pressure 95/62 98/70 93/65 O2 Sat by Pulse 100 100 Oximetry O2 Sat by Pulse Oximetry [ Assessment] 01/13/20 01/13/20 01/13/20 06:00 06:15 06:30 Temperature Pulse Rate 82 68 65 Pulse Rate [ From Monitor] Respiratory 20 18 21 Rate Respiratory Rate [Abdomen] Blood Pressure 102/72 105/63 97/55 O2 Sat by Pulse 97 96 97 Oximetry O2 Sat by Pulse Oximetry [ Assessment] 01/13/20 01/13/20 01/13/20 06:39 06:45 07:00 Temperature Pulse Rate 65 65 63 Pulse Rate [ From Monitor] Respiratory 18 22 Rate Respiratory Rate [Abdomen] Blood Pressure 97/55 94/55 95/59 O2 Sat by Pulse 95 95 Oximetry O2 Sat by Pulse Oximetry [ Assessment] 01/13/20 01/13/20 01/13/20 07:15 07:30 07:45 Temperature Pulse Rate 77 83 86 Pulse Rate [ From Monitor] Respiratory 16 21 20 Rate Respiratory Rate [Abdomen] Blood Pressure 96/63 99/69 108/73 O2 Sat by Pulse 100 100 100 Oximetry O2 Sat by Pulse Oximetry [ Assessment] 01/13/20 01/13/20 01/13/20 07:46 08:00 08:15 Temperature 97.7 F Pulse Rate 84 78 Pulse Rate [ 84 From Monitor] Respiratory 23 20 Rate Respiratory 20 Rate [Abdomen] Blood Pressure 102/70 102/64 O2 Sat by Pulse 99 97 Oximetry O2 Sat by Pulse Oximetry [ Assessment] 01/13/20 01/13/20 01/13/20 08:30 08:34 08:35 Temperature Pulse Rate 97 H 95 H Pulse Rate [ From Monitor] Respiratory 23 Rate Respiratory Rate [Abdomen] Blood Pressure 119/80 119/80 O2 Sat by Pulse 95 95 Oximetry O2 Sat by Pulse Oximetry [ Assessment] 01/13/20 01/13/20 01/13/20 08:36 08:45 09:00 Temperature Pulse Rate 92 H 90 Pulse Rate [ From Monitor] Respiratory 22 17 Rate Respiratory Rate [Abdomen] Blood Pressure 109/75 106/76 O2 Sat by Pulse 94 94 Oximetry O2 Sat by Pulse 95 Oximetry [ Assessment] 01/13/20 01/13/20 01/13/20 09:15 09:30 09:45 Temperature Pulse Rate 93 H 90 90 Pulse Rate [ From Monitor] Respiratory 23 24 16 Rate Respiratory Rate [Abdomen] Blood Pressure 101/69 91/70 106/73 O2 Sat by Pulse 91 94 97 Oximetry O2 Sat by Pulse Oximetry [ Assessment] 01/13/20 01/13/20 01/13/20 10:00 10:15 10:30 Temperature Pulse Rate 86 82 91 H Pulse Rate [ From Monitor] Respiratory 22 19 20 Rate Respiratory Rate [Abdomen] Blood Pressure 106/73 103/66 108/68 O2 Sat by Pulse 96 95 Oximetry O2 Sat by Pulse Oximetry [ Assessment] 01/13/20 01/13/20 01/13/20 10:45 11:00 11:15 Temperature Pulse Rate 96 H 92 H 91 H Pulse Rate [ From Monitor] Respiratory 26 H 22 20 Rate Respiratory Rate [Abdomen] Blood Pressure 110/72 117/65 116/65 O2 Sat by Pulse 93 98 98 Oximetry O2 Sat by Pulse Oximetry [ Assessment] 01/13/20 01/13/20 01/13/20 11:30 11:46 12:00 Temperature 97.9 F Pulse Rate 114 H 108 H 99 H Pulse Rate [ From Monitor] Respiratory 21 17 22 Rate Respiratory 22 Rate [Abdomen] Blood Pressure 117/65 117/65 117/65 O2 Sat by Pulse 92 94 96 Oximetry O2 Sat by Pulse Oximetry [ Assessment] 01/13/20 01/13/20 01/13/20 12:16 12:30 12:34 Temperature Pulse Rate 98 H 130 H Pulse Rate [ From Monitor] Respiratory 22 25 H Rate Respiratory Rate [Abdomen] Blood Pressure 117/65 125/81 O2 Sat by Pulse 96 92 94 Oximetry O2 Sat by Pulse Oximetry [ Assessment] 01/13/20 01/13/20 01/13/20 12:35 12:46 13:00 Temperature Pulse Rate 131 H 137 H Pulse Rate [ From Monitor] Respiratory 22 23 Rate Respiratory Rate [Abdomen] Blood Pressure 125/81 116/92 O2 Sat by Pulse 96 94 Oximetry O2 Sat by Pulse 94 Oximetry [ Assessment] 01/13/20 01/13/20 01/13/20 13:16 13:30 13:46 Temperature Pulse Rate 127 H 128 H 130 H Pulse Rate [ From Monitor] Respiratory 21 23 21 Rate Respiratory Rate [Abdomen] Blood Pressure 116/92 119/84 119/84 O2 Sat by Pulse 93 93 95 Oximetry O2 Sat by Pulse Oximetry [ Assessment] 01/13/20 01/13/20 01/13/20 14:00 14:16 14:30 Temperature Pulse Rate 86 86 88 Pulse Rate [ From Monitor] Respiratory 18 20 20 Rate Respiratory Rate [Abdomen] Blood Pressure 116/74 116/74 111/72 O2 Sat by Pulse 92 95 93 Oximetry O2 Sat by Pulse Oximetry [ Assessment] 01/13/20 01/13/20 14:46 15:00 Temperature Pulse Rate 88 86 Pulse Rate [ From Monitor] Respiratory 21 20 Rate Respiratory Rate [Abdomen] Blood Pressure 111/72 109/67 O2 Sat by Pulse 95 90 Oximetry O2 Sat by Pulse Oximetry [ Assessment] - General physical appearance Narrative Exam: Gen: Awake, alert. NAD ENT: Trach in place, site c/d/i CV: S1, S2+ Resp: even and unlabored Abd: soft, protuberant, ND, NT. TF running via PEG Ext: edema - Labs 01/12/20 04:18 01/12/20 04:18
--- NOTE | 2020-01-13 17:34 | Progress Note ---
Assessment and Plan -Partial SBO, resolved -Acute LLL PE -Acute RLE DVT -Persistent fevers; secondary to sepsis and acute PE/DVT -Severe sepsis; secondary to bilateral pneumonia, persistent fevers -Acute hypoxemic respiratory failure, on vent unable to wean -Bilateral pneumonia, community acquired, -Aspiration Pneumonia -Sustained SVT, on amiodarone -Acute on chronic systolic congestive heart failure -History of cerebrovascular accident. -Tobacco use disorder -Alcohol abuse with DT -Acute chronic obstructive pulmonary disease exacerbation. -Hypertension and hypertensive urgency at presentation. -History of arthritis. -Paroxysmal atrial fibrillation -Leukocytosis with possible sepsis. -Lactic acidosis. -Bleeding from ET tube -Oropharyngeal dysphagia -S/P Knee surgery -History of peptic Ulcer Surgery -DVT prophylaxis COVID-19 test; 11/24/2019; negative 11/26/2019; negative Plan Continue ventilatory support - Now s/p trach and PEG Aspiration precautions Continue to adjust amiodarone and metoprolol for suppression of paroxysmal atrial fibrillation. Continue anticoagulation Started back on vancomycin and zosyn BC 03/28 - coag negative staph ?contaminant. Sputum cultures pending. Low-dose Lasix as needed DVT/GI prophy Heparin/Protonix Plan of care reviewed with the patient's nurse BS consulted for partial SBO Closely monitor the patient and adjust management as needed The high probability of a clinically significant, sudden or life threatening deterioration of the [Respiratory, cardiovascular & neurological] system(s) required my full and direct attention, intervention and personal management. The aggregate critical care time was [33] minutes without overlap. Time includes spent on [x] Data Review and interpretation [x] Patient assessment and monitoring of vital signs [x] Documentation [x] Medication orders and management Brief History Patient is a 64-year-old male with known history of hypertension, COPD, history of coronary artery disease, CHF with ejection fraction of 20 to 25% in August 2018 presenting to the emergency room via EMS complaining of shortness of breath. Patient was found to be hypoxic and in respiratory distress. Patient was placed on CPAP in route to the hospital. Oxygen saturation was said to be 88%. Started on Solu-Medrol, Lasix and magnesium in ED, patient was also found to be lethargic with an oxygen saturation of about 91% on CPAP. He was subsequently intubated. Work-up in the emergency room including chest x-ray reveals bilateral pneumonia. He had an elevated white count of 14 and also had an elevated BNP. Patient admitted to the ICU and placed on empiric IV antibiotics for pneumonia. He tested negative for COVID-19 and placed on isolation precautions. Remains intubated on ventilatory support, sputum cultures positive for Pseudomonas, ID treated with cefepime and Vanco. His hospital course became complicated with acute PE, DVT, paroxysmal atrial fib - placed on chronic anticoagulation. P atient was difficult to wean off, status post trach and PEG, remains on mechanical ventilation with trach tube. He then developed partial small bowel obstruction and not tolerating tube feeding. Placed on NG suction, general surgery following. Symptom improved with medical Mx, TF restarted. Now weaning from vent, needs placemn 11/25: Leukocytosis improving. Continue current management anticipate extubation possible today. 11/26. Still intubated. Failed SBT yesterday. Repeat COVID-19 test is negative. 11/27. CT head ordered for possible neuro status change is negative. More responsive as the day progressed as per RN. Chest xray today shows interval improvement. He is still on antibiotics - will complete regimen today. 11/28: Considering difficult extubation and severe cardiomyopathy, will obtain cardiology consult. Aspiration precautions, tube feeds held, continue antibiotics. 11/29: Still with intermittent fever but improving imaging, continue diuresis. 11/30; Extremely agitated when placed on PSV- SVT, hypertension. Patiet acknowledged that he drinks. IV Ativan given, CIWA protocol initiated. 12 lead ordered showed SVT, one dose of amiodarone ordered. continue to follow up cardiology recommendation 12/01: Patient remains on mechanical ventilation, getting SBT trial. Remains in SVT, started on amiodarone drip by cardiology. 12/02; patient is on mechanical ventilation and on spontaneous breathing trial. Cardiology started the patient on PO amiodarone. Patient is on cefepime. 12/03: patient is on mechanical ventilation. Cardiology started the patient on PO amiodarone for SVT. Patient is on cefepime, no fever overnight. 12/04: Patient is sedated and on mechanical ventilation. Patient had fever yesterday afternoon 102.3, ID changed his cefepime to meropenem. Heart rate is controlled, cardiology is following. Patient has paroxysmal atrial fibrillation and on amiodarone and metoprolol, subcu heparin for anticoagulation and will need oral anticoagulation once stable. 12/05: Sputum cultures positive for Pseudomonas, ID following 12/06; patient is febrile T-max 24 hours 102 F ,ID change antibiotics to cefepime and Vancomycin 12/07: resumed care. Na 149 today, start on 1/2 NS. cont current care 12/08: remains in a stable sinus rhythm and stable blood pressure, continue supp ortive care. wean off vent as tolerated. persistent fever - ordered CTA chest 12/09: noted bloody discharges from ET tube last night. CTA and LE venous doppler positive for acute PE and DVT. resume heparin drip, consult vascular for possible EKOS/ IVC filter. monitor h/h. cont SBT trial, wean off vent as tolerated. called but no answer 12/10: cont heparin drip for acute PE and DVT, follow vascular recommendation. monitor h/h, wean off vent as tolerated 12/11: o/n had bleeding from ET tube, cont to monitor h/h. vascular recommending medical Mx. called ; Nicolle Araiza [phone]. 12/12: H&H remained stable, patient on heparin drip. Discussed with yesterday. Discussed with critical care attending. Patient not tolerating SBT trial. Continue to wean off from vent as tolerated, follow clinically. Tolerating tube feeding 12/13: Continue heparin drip, wean off from vent as tolerated. Discussed with pulmonary attending if no improvement by the end of 3 weeks of intubation patient may need trach and PEG. Continue to provide supportive care, follow CBC and BMP. 12/14: Stop cefepime today, wean off from vent as tolerated. cont Heparin infusion, while monitoring for bleeding 12/15: Patient is not tolerating SBT trial, becoming apnic on CPAP. May need to place on trach and PEG. Continue heparin drip, monitor off antibiotics 12/16. Still maintained on vent. May need PEG and trach as her has been failed SBTs 12/17. Had low UO overnight. Started on tamsulosin. May need PEG and trach - defer to pulm. 12/18-. Plan for US thoracentesis to help with weaning. Remains on heparin drip for VTE. 12/20. Discussed with spouse today. He will get thoracentesis today. INR/PTT orde red. Heparin drip held. 12/21: planned for trach and PEG, cont supportive care, thoracentesis cancelled 12/22: cont supportive care, wean off from vent, daily SBT 12/23: tolerating SBT, possible extubation soon. cont supportive care 12/24: wean off vent as tolerated, daily SBT, follow clinically 12/25; cont to monitor, wean off vent as tolerated 12/26: Continue to monitor wean off vent as tolerated patient is tolerating SBT trial but not ready to wean off. 12/27: need trach and PEG, will f/u with GS, cont supportive care 12/28: pending trach/PEG 12/29: plan for trach and PEG on Saturday 12/30: Plan for trach and PEG. Temp 101F. Blood cultures, urinalysis and chest xray ordered. 12/31. Had afib with RVR overnight. Metoprolol dose has been increased. He is still on amiodarone. Plan for PEG tube placement today. Repeat chest x-ray shows worsening infiltrates. Started on the Lasix. Monitor fever now. Blood cultures negative so far. Urinalysis pending 01/01. Started on antibiotics as he had another fever. On vancomycin and zosyn. ID consulted. HR still in the 100s. Had trach and PEG placement on 12/31 with no complications. BC 03/28 - Coag negative staph? contaminant. 01/02. On antibiotics. ID consulted. HR still high. Cardiology adjusting HR control medications. 01/03. HR better. Heparin switched to DOAC. HR better. Started on bumex 01/04: c/o abdominal pain, not tolerating TF, had projectile vomiting few times. Abd xry/CT abd suggestive of partial SBO, reconsult surgery, place NG with suction, start iv fluid. 01/05; Pt stable. NGT output 650cc over 24 hours, bilious. No f/c, WBC within normal limits. cont NG suction and cont to hold TF 01/06: Abs series - mild improvement in small bowel distension in mid abdomen, normal gas/stool pattern in colon. NGT in duodenum. Continue to hold tube feeding, maintain NG tube with low intermittent suction. Patient's was u pdated by phone. Continue to provide supportive care and monitor clinically. 01/07: +BMs today and NGT/PEG output appears more gastric today. Plan to clamp NGT, if tolerates start TF from tomorrow. cont supportive care. 01/08; Gastric output decreased over last 24 hours. NGT has been clamped x 24 hours. plan to dc NGT and to start TTF via PEG - vital HF @10cc/hr 01/09: clinically stable, tolerating TF. monitor BMP, wean off from vent as tolerated clinically stable, on TF. wean off vent as tolerated 01/11: wean off from vent, cont to monitor, on TF 01/12: wean off from vent, cont to monitor, on TF. need placement - unfunded Subjective Date of service: 01/13/20 Principal diagnosis: Ac hypoxemic resp failure; Pneumonia; PUI COVID-19; CHF; COPD; HTN Interval history: Patient seen and examined Patient intubated on trach Discussed with RN at the bedside H/H STABLE, Objective - Exam Narrative Exam: General appearance: Present: well-nourished, opens eyes to names and follows minor command - EENT Eyes: Present: PERRL, EOM intact. Absent: scleral icterus ENT: clear oral mucosa, dentition normal - Neck Neck: Present: supple, normal ROM, trach on place - Respiratory Respiratory effort: normal, mechanical ventilation with trach Respiratory: bilateral: rales - Cardiovascular Rhythm: regular Heart Sounds: Present: S1 & S2, tachycardic. Absent: gallop, systolic murmur, diastolic murmur, rub - Extremities Extremities: no ischemia, pulses intact, pulses symmetrical, No edema, Full ROM Peripheral Pulses: within normal limits - Abdominal General gastrointestinal: Present: soft, nondistended, + bowel sounds. - Integumentary Integumentary: Present: clear, warm, dry. Absent: rash - Musculoskeletal Musculoskeletal: no joint swelling - Psychiatric Psychiatric: no agitation Neurology: no focal deficits - Constitutional Vitals: Vital Signs - 12hr 01/13/20 01/13/20 01/13/20 05:45 06:00 06:15 Temperature Pulse Rate 76 82 68 Pulse Rate [ From Monitor] Respiratory 17 20 18 Rate Respiratory Rate [Abdomen] Blood Pressure 93/65 102/72 105/63 O2 Sat by Pulse 100 97 96 Oximetry O2 Sat by Pulse Oximetry [ Assessment] 01/13/20 01/13/20 01/13/20 06:30 06:39 06:45 Temperature Pulse Rate 65 65 65 Pulse Rate [ From Monitor] Respiratory 21 18 Rate Respiratory Rate [Abdomen] Blood Pressure 97/55 97/55 94/55 O2 Sat by Pulse 97 95 Oximetry O2 Sat by Pulse Oximetry [ Assessment] 01/13/20 01/13/20 01/13/20 07:00 07:15 07:30 Temperature Pulse Rate 63 77 83 Pulse Rate [ From Monitor] Respiratory 22 16 21 Rate Respiratory Rate [Abdomen] Blood Pressure 95/59 96/63 99/69 O2 Sat by Pulse 95 100 100 Oximetry O2 Sat by Pulse Oximetry [ Assessment] 01/13/20 01/13/20 01/13/20 07:45 07:46 08:00 Temperature 97.7 F Pulse Rate 86 84 Pulse Rate [ 84 From Monitor] Respiratory 20 23 Rate Respiratory 20 Rate [Abdomen] Blood Pressure 108/73 102/70 O2 Sat by Pulse 100 99 Oximetry O2 Sat by Pulse Oximetry [ Assessment] 01/13/20 01/13/20 01/13/20 08:15 08:30 08:34 Temperature Pulse Rate 78 97 H 95 H Pulse Rate [ From Monitor] Respiratory 20 23 Rate Respiratory Rate [Abdomen] Blood Pressure 102/64 119/80 119/80 O2 Sat by Pulse 97 95 Oximetry O2 Sat by Pulse Oximetry [ Assessment] 01/13/20 01/13/20 01/13/20 08:35 08:36 08:45 Temperature Pulse Rate 92 H Pulse Rate [ From Monitor] Respiratory 22 Rate Respiratory Rate [Abdomen] Blood Pressure 109/75 O2 Sat by Pulse 95 94 Oximetry O2 Sat by Pulse 95 Oximetry [ Assessment] 01/13/20 01/13/20 01/13/20 09:00 09:15 09:30 Temperature Pulse Rate 90 93 H 90 Pulse Rate [ From Monitor] Respiratory 17 23 24 Rate Respiratory Rate [Abdomen] Blood Pressure 106/76 101/69 91/70 O2 Sat by Pulse 94 91 94 Oximetry O2 Sat by Pulse Oximetry [ Assessment] 01/13/20 01/13/20 01/13/20 09:45 10:00 10:15 Temperature Pulse Rate 90 86 82 Pulse Rate [ From Monitor] Respiratory 16 22 19 Rate Respiratory Rate [Abdomen] Blood Pressure 106/73 106/73 103/66 O2 Sat by Pulse 97 96 Oximetry O2 Sat by Pulse Oximetry [ Assessment] 01/13/20 01/13/20 01/13/20 10:30 10:45 11:00 Temperature Pulse Rate 91 H 96 H 92 H Pulse Rate [ From Monitor] Respiratory 20 26 H 22 Rate Respiratory Rate [Abdomen] Blood Pressure 108/68 110/72 117/65 O2 Sat by Pulse 95 93 98 Oximetry O2 Sat by Pulse Oximetry [ Assessment] 01/13/20 01/13/20 01/13/20 11:15 11:30 11:46 Temperature Pulse Rate 91 H 114 H 108 H Pulse Rate [ From Monitor] Respiratory 20 21 17 Rate Respiratory Rate [Abdomen] Blood Pressure 116/65 117/65 117/65 O2 Sat by Pulse 98 92 94 Oximetry O2 Sat by Pulse Oximetry [ Assessment] 01/13/20 01/13/20 01/13/20 12:00 12:16 12:30 Temperature 97.9 F Pulse Rate 99 H 98 H 130 H Pulse Rate [ 99 H From Monitor] Respiratory 22 22 25 H Rate Respiratory 22 Rate [Abdomen] Blood Pressure 117/65 117/65 125/81 O2 Sat by Pulse 96 96 92 Oximetry O2 Sat by Pulse Oximetry [ Assessment] 01/13/20 01/13/20 01/13/20 12:34 12:35 12:46 Temperature Pulse Rate 131 H Pulse Rate [ From Monitor] Respiratory 22 Rate Respiratory Rate [Abdomen] Blood Pressure 125/81 O2 Sat by Pulse 94 96 Oximetry O2 Sat by Pulse 94 Oximetry [ Assessment] 01/13/20 01/13/20 01/13/20 13:00 13:16 13:30 Temperature Pulse Rate 137 H 127 H 128 H Pulse Rate [ From Monitor] Respiratory 23 21 23 Rate Respiratory Rate [Abdomen] Blood Pressure 116/92 116/92 119/84 O2 Sat by Pulse 94 93 93 Oximetry O2 Sat by Pulse Oximetry [ Assessment] 01/13/20 01/13/20 01/13/20 13:46 14:00 14:16 Temperature Pulse Rate 130 H 86 86 Pulse Rate [ From Monitor] Respiratory 21 18 20 Rate Respiratory Rate [Abdomen] Blood Pressure 119/84 116/74 116/74 O2 Sat by Pulse 95 92 95 Oximetry O2 Sat by Pulse Oximetry [ Assessment] 01/13/20 01/13/20 01/13/20 14:30 14:46 15:00 Temperature Pulse Rate 88 88 86 Pulse Rate [ From Monitor] Respiratory 20 21 20 Rate Respiratory Rate [Abdomen] Blood Pressure 111/72 111/72 109/67 O2 Sat by Pulse 93 95 90 Oximetry O2 Sat by Pulse Oximetry [ Assessment] 01/13/20 01/13/20 01/13/20 15:16 15:30 15:46 Temperature Pulse Rate 81 84 84 Pulse Rate [ From Monitor] Respiratory 19 18 19 Rate Respiratory Rate [Abdomen] Blood Pressure 109/67 103/68 103/68 O2 Sat by Pulse 94 94 95 Oximetry O2 Sat by Pulse Oximetry [ Assessment] 01/13/20 01/13/20 01/13/20 16:00 16:16 16:30 Temperature Pulse Rate 85 88 89 Pulse Rate [ 85 From Monitor] Respiratory 21 21 21 Rate Respiratory 21 Rate [Abdomen] Blood Pressure 105/69 105/69 100/69 O2 Sat by Pulse 92 96 97 Oximetry O2 Sat by Pulse Oximetry [ Assessment] 01/13/20 17:10 Temperature Pulse Rate 91 H Pulse Rate [ From Monitor] Respiratory Rate Respiratory Rate [Abdomen] Blood Pressure 100/78 O2 Sat by Pulse 98 Oximetry O2 Sat by Pulse Oximetry [ Assessment] - Labs CBC & Chem 7: 01/12/20 04:18 01/12/20 04:18 Labs: Abnormal lab results 01/12/20 Range/Units 18:24 POC Glucose 119 H (70-105) mg/dL HEART Score - HEART Score Troponin: Troponin T < 0.010 ng/mL (0.00-0.029) 11/24/19 02:53
[2020-01-13 21:06] LABS: ABG Base Excess 6.7 mmol/L (-2.0-3.0); ABG HCO3 31.8 mmol/L (20.0-26.0); ABG Methemoglobin 0.6 % (0.0-1.5); ABG Oxygen Saturation 93.5 % (95.0-99.0); ABG PCO2 46.9 mm Hg; ABG PH 7.449 pH Units (7.350-7.450); ABG PO2 65.3 mm Hg (80.0-90.0)
[2020-01-13] MEDS: TAMSULOSIN 0.4 MG CAP PO SCH (22:33)
[2020-01-13] MEDS: QUEtiapine 100 MG TAB PO SCH (22:33)
[2020-01-13] MEDS: POLYETHYLENE GLYCOL 3350 17 GM POWDER PO SCH (22:33)
[2020-01-13] MEDS: MORPHINE 2 MG/1 ML INJ IV PRN (22:42)
[2020-01-14] MEDS: METOPROLOL TARTRATE 25 MG TAB PO SCH ×4 (02:25→18:23)
[2020-01-14] MEDS: METOPROLOL TARTRATE 5 MG/5 ML INJ IV PRN (02:32)
[2020-01-14] MEDS: MORPHINE 2 MG/1 ML INJ IV PRN ×2 (03:53→22:52)
--- NOTE | 2020-01-14 07:53 | Progress Note ---
Assessment and Plan Assessment and plan: -Partial SBO, resolved -Acute LLL PE -Acute RLE DVT -Persistent fevers; secondary to sepsis and acute PE/DVT -Severe sepsis; secondary to bilateral pneumonia, persistent fevers -Acute hypoxemic respiratory failure, on vent unable to wean -Bilateral pneumonia, community acquired, -Aspiration Pneumonia -Sustained SVT, on amiodarone -Acute on chronic systolic congestive heart failure -History of cerebrovascular accident. -Tobacco use disorder -Alcohol abuse with DT -Acute chronic obstructive pulmonary disease exacerbation. -Hypertension and hypertensive urgency at presentation. -History of arthritis. -Paroxysmal atrial fibrillation -Leukocytosis with possible sepsis. -Lactic acidosis. -Bleeding from ET tube -Oropharyngeal dysphagia -S/P Knee surgery -History of peptic Ulcer Surgery -DVT prophylaxis COVID-19 test; 11/24/2019; negative 11/26/2019; negative 12/29/19; negative Plan Continue ventilatory support - Now s/p trach and PEG Aspiration precautions Continue to adjust amiodarone and metoprolol for suppression of paroxysmal atrial fibrillation. Continue anticoagulation s/p vancomycin and zosyn BC 03/28 - coag negative staph ?contaminant. Sputum cultures pending. Low-dose Lasix as needed DVT/GI prophy Heparin/Protonix Plan of care reviewed with the patient's nurse GS evaluated partial SBO Closely monitor the patient and adjust management as needed The high probability of a clinically significant, sudden or life threatening deterioration of the [Respiratory, cardiovascular & neurological] system(s) required my full and direct attention, intervention and personal management. The aggregate critical care time was [32] minutes without overlap. Time includes spent on [x] Data Review and interpretation [x] Patient assessment and monitoring of vital signs [x] Documentation [x] Medication orders and management 01/05; Pt stable. NGT output 650cc over 24 hours, bilious. No f/c, WBC within normal limits. cont NG suction and cont to hold TF 01/06: Abs series - mild improvement in small bowel distension in mid abdomen, normal gas/stool pattern in colon. NGT in duodenum. Continue to hold tube feeding, maintain NG tube with low intermittent suction. Patient's was updated by phone. Continue to provide supportive care and monitor clinically. 01/07: +BMs today and NGT/PEG output appears more gastric today. Plan to clamp NGT, if tolerates start TF from tomorrow. cont supportive care. 01/08; Gastric output decreased over last 24 hours. NGT has been clamped x 24 hours. plan to dc NGT and to start TTF via PEG - vital HF @10cc/hr 01/09: clinically stable, tolerating TF. monitor BMP, wean off from vent as tolerated clinically stable, on TF. wean off vent as tolerated 01/11: wean off from vent, cont to monitor, on TF 01/12: wean off from vent, cont to monitor, on TF. need placement - unfunded 01/13; remains on ventilatory support, unable to wean, DC planning possible LTAC, unfunded History Interval history: I have seen and examined the patient at the bedside Patient's chart and medications reviewed Patient with tracheostomy on ventilatory support Vital signs noted No new events reported by the nursing Hospitalist Physical - Constitutional Vitals: Temp Pulse Resp BP Pulse Ox 98.4 F 101 H 23 134/82 98 01/14/20 04:00 01/14/20 07:15 01/14/20 07:15 01/14/20 07:15 01/14/20 07:15 General appearance: Present: well-nourished, obese, other (Tracheostomy on vent) - EENT Eyes: Present: PERRL, EOM intact ENT: other (Trach in place) - Neck Neck: Present: supple, normal ROM - Respiratory Respiratory effort: normal Respiratory: bilateral: diminished, rhonchi, negative: rales, wheezing - Cardiovascular Rhythm: regular Heart Sounds: Present: S1 & S2 - Extremities Extremities: no ischemia, No edema - Abdominal General gastrointestinal: soft, non-tender, non-distended, normal bowel sounds - Integumentary Integumentary: Present: clear, warm - Psychiatric Psychiatric: other (Intubated on vent) - Neurologic Neurologic: other (Tracheostomy on vent) HEART Score - HEART Score Troponin: Troponin T < 0.010 ng/mL (0.00-0.029) 11/24/19 02:53 Results - Labs CBC & Chem 7: 01/14/20 16:14 01/14/20 16:14 Labs: Laboratory Last Values WBC 8.8 K/mm3 (4.5-11.0) 01/12/20 04:18 RBC 3.80 M/mm3 (3.65-5.03) 01/12/20 04:18 Hgb 9.6 gm/dl (11.8-15.2) L 01/12/20 04:18 Hct 30.9 % (35.5-45.6) L 01/12/20 04:18 MCV 81 fl (84-94) L 01/12/20 04:18 MCH 25 pg (28-32) L 01/12/20 04:18 MCHC 31 % (32-34) L 01/12/20 04:18 RDW 17.3 % (13.2-15.2) H 01/12/20 04:18 Plt Count 248 K/mm3 (140-440) 01/12/20 04:18 Lymph % (Auto) 24.1 % (13.4-35.0) 01/12/20 00:23 [place] % (Auto) 8.0 % (0.0-7.3) H 01/12/20 00:23 Eos % (Auto) 2.2 % (0.0-4.3) 01/12/20 00:23 Baso % (Auto) 0.9 % (0.0-1.8) 01/12/20 00:23 Lymph # (Auto) 2.2 K/mm3 (1.2-5.4) 01/12/20 00:23 [place] # (Auto) 0.7 K/mm3 (0.0-0.8) 01/12/20 00:23 Eos # (Auto) 0.2 K/mm3 (0.0-0.4) 01/12/20 00:23 Baso # (Auto) 0.1 K/mm3 (0.0-0.1) 01/12/20 00:23 Add Manual Diff Complete 12/19/19 11:32 Total Counted 100 12/19/19 11:32 Seg Neutrophils % 64.8 % (40.0-70.0) 01/12/20 00:23 Seg Neuts % (Manual) 82.0 % (40.0-70.0) H 12/19/19 11:32 Band Neutrophils % 0 % 12/19/19 11:32 Lymphocytes % (Manual) 10.0 % (13.4-35.0) L 12/19/19 11:32 Reactive Lymphs % (Man) 0 % 12/19/19 11:32 Monocytes % (Manual) 6.0 % (0.0-7.3) 12/19/19 11:32 Eosinophils % (Manual) 2.0 % (0.0-4.3) 12/19/19 11:32 Basophils % (Manual) 0 % (0.0-1.8) 12/19/19 11:32 Metamyelocytes % 0 % 12/19/19 11:32 Myelocytes % 0 % 12/19/19 11:32 Promyelocytes % 0 % 12/19/19 11:32 Blast Cells % 0 % 12/19/19 11:32 Nucleated RBC % 1.0 % (0.0-0.9) H 12/19/19 11:32 Seg Neutrophils # 6.0 K/mm3 (1.8-7.7) 01/12/20 00:23 Seg Neutrophils # Man 12.0 K/mm3 (1.8-7.7) H 12/19/19 11:32 Band Neutrophils # 0.0 K/mm3 12/19/19 11:32 Lymphocytes # (Manual) 1.5 K/mm3 (1.2-5.4) 12/19/19 11:32 Abs React Lymphs (Man) 0.0 K/mm3 12/19/19 11:32 Monocytes # (Manual) 0.9 K/mm3 (0.0-0.8) H 12/19/19 11:32 Eosinophils # (Manual) 0.3 K/mm3 (0.0-0.4) 12/19/19 11:32 Basophils # (Manual) 0.0 K/mm3 (0.0-0.1) 12/19/19 11:32 Metamyelocytes # 0.0 K/mm3 12/19/19 11:32 Myelocytes # 0.0 K/mm3 12/19/19 11:32 Promyelocytes # 0.0 K/mm3 12/19/19 11:32 Blast Cells # 0.0 K/mm3 12/19/19 11:32 WBC Morphology Not Reportable 12/19/19 11:32 Hypersegmented Neuts Not Reportable 12/19/19 11:32 Hyposegmented Neuts Not Reportable 12/19/19 11:32 Hypogranular Neuts Not Reportable 12/19/19 11:32 Smudge Cells Not Reportable 12/19/19 11:32 Toxic Granulation Not Reportable 12/19/19 11:32 Toxic Vacuolation Not Reportable 12/19/19 11:32 Dohle Bodies Not Reportable 12/19/19 11:32 Pelger-Huet Anomaly Not Reportable 12/19/19 11:32 Hector Rods Not Reportable 12/19/19 11:32 Platelet Estimate Consistent w auto 12/19/19 11:32 Clumped Platelets Not Reportable 12/19/19 11:32 Plt Clumps, EDTA Not Reportable 12/19/19 11:32 Large Platelets Not Reportable 12/19/19 11:32 Giant Platelets Not Reportable 12/19/19 11:32 Platelet Satelliting Not Reportable 12/19/19 11:32 Plt Morphology Comment Not Reportable 12/19/19 11:32 RBC Morphology Not Reportable 12/19/19 11:32 Dimorphic RBCs Not Reportable 12/19/19 11:32 Polychromasia Not Reportable 12/19/19 11:32 Hypochromasia Few 12/19/19 11:32 Poikilocytosis Not Reportable 12/19/19 11:32 Anisocytosis 1+ 12/19/19 11:32 Microcytosis Few 12/19/19 11:32 Macrocytosis Few 12/19/19 11:32 Spherocytes Not Reportable 12/19/19 11:32 Pappenheimer Bodies Not Reportable 12/19/19 11:32 Sickle Cells Not Reportable 12/19/19 11:32 Target Cells Not Reportable 12/19/19 11:32 Tear Drop Cells Not Reportable 12/19/19 11:32 Ovalocytes Not Reportable 12/19/19 11:32 Helmet Cells Not Reportable 12/19/19 11:32 Gottlieb-Sadler Bodies Not Reportable 12/19/19 11:32 [place] Rings Not Reportable 12/19/19 11:32 Oc Cells Not Reportable 12/19/19 11:32 Bite Cells Not Reportable 12/19/19 11:32 Crenated Cell Not Reportable 12/19/19 11:32 Elliptocytes Not Reportable 12/19/19 11:32 Acanthocytes (Spur) Not Reportable 12/19/19 11:32 Rouleaux Not Reportable 12/19/19 11:32 Hemoglobin C Crystals Not Reportable 12/19/19 11:32 Schistocytes Not Reportable 12/19/19 11:32 Malaria parasites Not Reportable 12/19/19 11:32 Clifford Bodies Not Reportable 12/19/19 11:32 Hem Pathologist Commnt No 12/19/19 11:32 PT 13.8 Sec. (12.2-14.9) 12/21/19 10:13 INR 1.05 (0.87-1.13) 12/21/19 10:13 APTT 23.9 Sec. (24.2-36.6) L 12/21/19 10:13 Heparin Anti-Xa Level 0.16 U.I./ml (0.3-0.7) L 01/04/20 04:26 ABG pH 7.449 pH Units (7.350-7.450) 01/13/20 20:40 POC ABG pCO2 45.6 mmHg (32.0-48.0) 01/12/20 13:58 ABG pCO2 46.9 mm Hg 01/13/20 20:40 POC ABG pO2 76.6 mmHg (83-108) L 01/12/20 13:58 ABG pO2 65.3 mm Hg (80.0-90.0) L 01/13/20 20:40 POC ABG HCO3 31.2 01/12/20 13:58 ABG HCO3 31.8 mmol/L (20.0-26.0) H 01/13/20 20:40 ABG O2 Saturation 93.5 % (95.0-99.0) L 01/13/20 20:40 ABG O2 Content 17.0 (0.0-44) 01/13/20 20:40 POC ABG Base Excess 6.5 01/12/20 13:58 ABG Base Excess 6.7 mmol/L (-2.0-3.0) H 01/13/20 20:40 ABG Hemoglobin 13.3 gm/dl (14.0-18.0) L 01/13/20 20:40 ABG Oxyhemoglobin 84 (94-98) L 12/22/19 03:22 ABG Carboxyhemoglobin 2.2 % (0.0-5.0) 01/13/20 20:40 ABG Methemoglobin 0.6 % (0.0-1.5) 01/13/20 20:40 ABG Sodium 136.8 mmol/L (136.0-145.0) 01/12/20 13:58 ABG Potassium 3.7 mmol/L (3.40-4.50) 01/12/20 13:58 ABG Chloride 103.0 mmol/L (98-107) 01/12/20 13:58 ABG Glucose 99 mg/dL (65-95) H 01/12/20 13:58 Oxyhemoglobin 90.9 % (95.0-99.0) L 01/13/20 20:40 Carboxyhemoglobin 0.7 (0.5-1.5) 12/22/19 03:22 FiO2 35 % 01/13/20 20:40 Sodium 143 mmol/L (137-145) 01/12/20 04:18 Potassium 3.8 mmol/L (3.6-5.0) 01/12/20 04:18 Chloride 100.8 mmol/L (98-107) 01/12/20 04:18 Carbon Dioxide 28 mmol/L (22-30) 01/12/20 04:18 Anion Gap 18 mmol/L 01/12/20 04:18 BUN 11 mg/dL (9-20) 01/12/20 04:18 Creatinine 0.7 mg/dL (0.8-1.3) L 01/12/20 04:18 Estimated GFR > 60 ml/min 01/12/20 04:18 BUN/Creatinine Ratio 16 % 01/12/20 04:18 Glucose 108 mg/dL (75-100) H 01/12/20 04:18 POC Glucose 111 mg/dL (70-105) H 01/14/20 05:33 Lactic Acid 2.50 mmol/L (0.7-2.0) H* 11/24/19 10:37 Magnesium 2.60 mg/dL (1.7-2.3) H 12/07/19 12:41 Calcium 8.8 mg/dL (8.4-10.2) 01/12/20 04:18 Ferritin 84.4 ng/mL (30.0-300.0) 11/24/19 04:53 Direct Bilirubin < 0.2 mg/dL (0-0.2) 12/08/19 03:55 Indirect Bilirubin 0.2 mg/dL 12/08/19 03:55 Phosphorus 3.40 mg/dL (2.5-4.5) 01/12/20 12:01 Total Bilirubin 0.50 mg/dL (0.1-1.2) 01/12/20 00:23 Total Creatine Kinase 141 units/L (55-170) 11/24/19 02:53 CK-MB (CK-2) 4.3 ng/mL (0.0-4.0) H 11/24/19 02:53 AST 16 units/L (5-40) 01/12/20 00:23 ALT 22 units/L (7-56) 01/12/20 00:23 CK-MB (CK-2) Rel Index 3.0 (0-4) 11/24/19 02:53 Alkaline Phosphatase 59 units/L (35-129) 01/12/20 00:23 Troponin T < 0.010 ng/mL (0.00-0.029) 11/24/19 02:53 C-Reactive Protein 8.50 mg/dL (0.00-1.30) H 12/01/19 12:16 Lactate Dehydrogenase 228 units/L (91-180) H 12/19/19 04:45 NT-Pro-B Natriuret Pep 3866 pg/mL (0-900) H 01/01/20 10:40 Total Protein 6.3 g/dL (6.3-8.2) 01/12/20 00:23 Albumin 2.6 g/dL (3.9-5) L 01/12/20 00:23 Albumin/Globulin Ratio 0.7 % 01/12/20 00:23 Procalcitonin 0.76 ng/mL (<0.15) 01/01/20 10:40 Arterial Blood Glucose 99 mg/dL (65-95) H 01/12/20 13:58 Arterial Blood Ionized Calcium 4.8 mg/dL (4.6-5.3) 01/12/20 13:58 Urine Color Cecy (Yellow) 12/31/19 18:04 Urine Turbidity Clear (Clear) 12/31/19 18:04 Urine pH 5.0 (5.0-7.0) 12/31/19 18:04 Ur Specific [place] 1.023 (1.003-1.030) 12/31/19 18:04 Urine Protein <15 mg/dl mg/dL (Negative) 12/31/19 18:04 Urine Glucose (UA) Neg mg/dL (Negative) 12/31/19 18:04 Urine Ketones Neg mg/dL (Negative) 12/31/19 18:04 Urine Blood Neg (Negative) 12/31/19 18:04 Urine Bacteria (Auto) 1+ /HPF (Negative) 12/03/19 06:03 Urine Nitrite Neg (Negative) 12/31/19 18:04 Urine Bilirubin Neg (Negative) 12/31/19 18:04 Urine Urobilinogen 4.0 mg/dL (<2.0) 12/31/19 18:04 Ur Leukocyte Esterase Neg (Negative) 12/31/19 18:04 Urine WBC (Auto) 2.0 /HPF (0.0-6.0) 12/31/19 18:04 Urine RBC (Auto) 3.0 /HPF (0.0-6.0) 12/31/19 18:04 U Epithel Cells (Auto) 2.0 /HPF (0-13.0) 12/31/19 18:04 Urine Mucus 1+ /HPF 12/31/19 18:04 Vancomycin Trough 14.2 ug/mL (5.0-20.0) 12/13/19 15:01 Coronavirus (PCR) Negative (Negative) 12/29/19 10:07 - Diagnostic Impressions Diagnostic Impressions: Echocardiogram 11/29/19 07:37 Transthoracic Echocardiogram Indication: CHF BP: 116/72 HR: 33 Conclusions *The study is technically limited due to poor acoustic windows. *Global left ventricular systolic function is normal. *The estimated ejection fraction is 50-55%. *Mild concentric left ventricular hypertrophy is observed. *There is trace of mitral regurgitation. *There is mild tricuspid regurgitation. Findings Procedure Info: The study quality is poor. The study is technically limited due to poor acoustic windows. The study is technically limited due to patient body habitus. Left Ventricle: The left ventricular chamber size is normal. Mild concentric left ventricular hypertrophy is observed. Global left ventricular systolic function is normal. The estimated ejection fraction is 50-55%. Left Atrium: The left atrial chamber size is normal. Right Ventricle: The right ventricular cavity size is normal. Right Atrium: The right atrial cavity size is normal. Aortic Valve: The aortic valve leaflets are moderately thickened. There is trace of aortic regurgitation. There is no evidence of aortic stenosis. Mitral Valve: The mitral valve leaflets are mildly thickened. There is trace of mitral regurgitation. There is no evidence of mitral stenosis. Tricuspid Valve: There is mild tricuspid regurgitation. No pulmonary hypertension is noted. Pulmonic Valve: There is trace pulmonic regurgitation. Pericardium: There is no pericardial effusion. Aorta: There is no dilatation of the aortic root. Venous: The inferior vena cava appears normal in size. Contrast: Definity was used to optimize study. Intravenous contrast was used to enhance endocardial border definition. Measurements Chambers 2D Name Value Normal Range Ao root diameter (2D) 3.4 cm (2 - 3.7) Aortic Valve Name Value Normal Range AV Vmax 0.98 m/sec - AV VTI 16.76 cm - AV peak gradient 3.83 mmHg - AV mean gradient 2.57 mmHg - LVOT diameter 3.11 cm - LVOT Vmax 0.68 m/sec - LVOT VTI 11.52 cm - LVOT peak gradient 1.84 mmHg - LVOT mean gradient 1.27 mmHg - SV LVOT 87.31 ml - MALOU (continuity Vmax) 5.24 cm2 - MALOU (continuity VTI) 5.21 cm2 - Tricuspid Valve Name Value Normal Range IVC diameter 2.24 cm (1.2 - 2.3) Hoffman/IV: Voiding Method Condom Catheter IV Catheter Type [Right Hand] INT / Saline Lock IV Catheter Type [Right Upper INT / Saline Lock arm] IV Catheter Type [Left Upper Mid-line arm] IV Catheter Type [Left Forearm INT / Saline Lock ] IV Catheter Type [Left Hand] INT / Saline Lock IV Catheter Type [Left Wrist] INT / Saline Lock IV Catheter Type [Right Peripheral IV Antecubital] Active Medications - Current Medications Current Medications: Generic Name Dose Route Start Last Admin Trade Name Freq PRN Reason Stop Dose Admin Acetaminophen 650 mg 12/31/19 11:43 01/13/20 19:16 Tylenol FEEDTUBE 650 mg Q6H PRN Administration Pain, Mild (1-3) Amiodarone HCl 200 mg 12/04/19 14:00 01/13/20 22:33 Cordarone PO 200 mg BID CAR Administration Lipase/Protease/Amylase 1 each 01/09/20 12:01 Pancrepetr Betancourt 10,500 Unit FEEDTUBE PRN PRN For Clogged Feeding Tube Apixaban 5 mg 01/11/20 22:00 01/13/20 22:33 Eliquis PO 5 mg Q12HR CAR Administration Protocol Bisacodyl 10 mg 01/06/20 13:00 01/13/20 09:36 Dulcolax NV 10 mg DAILY CAR Administration Docusate Sodium 100 mg 12/02/19 22:00 01/13/20 22:33 Colace FEEDTUBE 100 mg BID CAR Administration Famotidine 20 mg 01/12/20 10:00 01/13/20 22:33 Pepcid PO 20 mg BID CAR Administration Glycopyrrolate 2 mg 01/12/20 22:00 01/13/20 22:09 Glycopyrrolate PO Not Given BID CAR Haloperidol Lactate 5 mg 12/25/19 10:00 01/08/20 17:00 Haldol IV 5 mg Q6H PRN Administration Unrespon. to mult. doses BZD's Lorazepam 2 mg 12/25/19 10:00 01/08/20 17:00 Ativan IV 2 mg Q6H PRN Administration AGITATION Metoprolol Tartrate 5 mg 01/11/20 08:00 01/14/20 02:32 Metoprolol IV 5 mg Q6H PRN Administration SEE INSTRUCTIONS Metoprolol Tartrate 25 mg 01/11/20 13:00 01/14/20 06:41 Metoprolol PO 25 mg Q6H CAR Administration Morphine Sulfate 2 mg 01/06/20 15:41 01/14/20 03:53 Morphine IV 2 mg Q4H PRN Administration Pain, Moderate (4-6) Ondansetron HCl 4 mg 01/05/20 14:37 01/05/20 16:18 Zofran IV 4 mg Q8H PRN Administration Nausea And Vomiting Polyethylene Glycol 17 gm 12/04/19 22:00 01/13/20 22:33 Miralax 3350 PO 17 gm QHS CAR Administration Quetiapine Fumarate 300 mg 01/13/20 22:00 01/13/20 22:33 Seroquel PO 300 mg BID CAR Administration Scopolamine 1 each 01/07/20 20:00 01/07/20 21:08 Transderm-Scop TD 1 each Q72HR CAR Administration Simple Syrup 15 ml 01/09/20 12:01 Simple Syrup FEEDTUBE PRN PRN Hypoglycemia Simple Syrup 30 ml 01/09/20 12:01 Simple Syrup FEEDTUBE PRN PRN Hypoglycemia Sodium Bicarbonate 325 mg 01/09/20 12:01 Sodium Bicarbonate FEEDTUBE PRN PRN For Clogged Feeding Tube Sodium Chloride 10 ml 11/24/19 10:00 01/13/20 22:35 Sodium Chloride Flush Syringe 10 Ml IV 10 ml BID CAR Administration Tamsulosin HCl 0.8 mg 12/20/19 22:00 01/13/20 22:33 Flomax PO 0.8 mg QHS CAR Administration Nutrition/Malnutrition Assess - Dietary Evaluation Nutrition/Malnutrition Findings: Nutrition Notes Start: 11/24/19 12:22 Freq: Status: Active Protocol: Document 01/13/20 12:54 AL (Rec: 01/13/20 13:02 AL [email or web address]) Co-Sign 01/13/20 12:54 MK Nutrition Notes Initial or Follow up Reassessment Current Diagnosis Coronary Artery Disease,Heart Failure,Respiratory Failure, Stroke,Hyperlipidemia Other Pertinent Diagnosis Partial SBO, pneu Current Diet Vital HP at 70 ml/hr (goal rate) Labs/Tests Reviewed Pertinent Medications Reviewed Height 6 ft 2 in Weight 120 kg [place] Body Weight (kg) 86.36 BMI 34.0 Weight Status Obese Subjective/Other Information Per RN, TF was at 50 ml/hr, but was stopped this morning due to an issue with trach line. RN will try to restart TF. Percent of energy/protein needs met: 0%/0% Burn Absent Trauma Absent GI Symptoms None Current % PO Negligible Minimum of two criteria No Fluid Accumulation Mild (non-severe) #1 Nutrition Diagnosis Inadequate oral intake Diagnosis Progress(for reassessment Continues documentation) Is patient on ventilator? Yes Is Patient Ambulatory and/or Out of Bed No REE-([facility]-confined to bed) 2482.308 Kcal/Kg value to use for calculation 14 Approximate Energy Requirements Using 1680 kcal/Kg Calculation Used for Recommendations Kcal/kg Additional Notes Pro needs 2g/kg IBW: 173g/day Fluid needs 1ml/kcal Nutrition Intervention Change Diet Order: TF Nutrition Support: Vital HP at 70ml/hr (goal rate ) Flush 50ml q4h or per MD Kcal 1,680 Protein (gm) 147 Fluid (mL) 1,404 Goal #1 Restart TF Anticipated Discharge Needs: unable to determine Follow-Up By: 01/15/20 Additional Comments F/U for TF restart
[2020-01-14] MEDS: ACETAMINOPHEN 325 MG/10.15 ML ORAL LIQD UNIT DOSE FEEDTUBE PRN (08:27)
[2020-01-14] MEDS: APIXABAN 5 MG TAB PO SCH ×2 (09:06→22:51)
[2020-01-14] MEDS: QUEtiapine 100 MG TAB PO SCH ×2 (09:06→22:51)
[2020-01-14] MEDS: AMIODARONE 200 MG TAB PO SCH ×2 (09:06→22:52)
[2020-01-14] MEDS: FAMOTIDINE 20 MG TAB PO SCH ×2 (09:06→22:51)
[2020-01-14] MEDS: DOCUSATE SODIUM 100 MG/10 ML ORAL LIQD FEEDTUBE SCH ×2 (09:07→22:49)
[2020-01-14] MEDS: GLYCOPYRROLATE 2 MG TAB PO SCH ×2 (10:15→23:37)
--- NOTE | 2020-01-14 11:41 | Progress Note ---
Assessment and Plan - Patient Problems (1) Paroxysmal atrial fibrillation Current Visit: Yes Status: Acute Plan to address problem: Continue conservative cardiac medical management as previously outlined. Subjective Date of service: 01/14/20 Principal diagnosis: Ac hypoxemic resp failure; Pneumonia; PUI COVID-19; CHF; COPD; HTN Interval history: Patient is awake, on the vent via trach. On the supervising bailiff he is in stable sinus rhythm. Objective Vital Signs Temp Pulse Pulse Resp Resp BP Pulse Ox 01/14/20 11:30 97 H 17 110/75 100 01/14/20 11:15 98 H 22 116/77 100 01/14/20 11:00 99 H 19 116/77 99 01/14/20 10:45 101 H 19 116/74 98 01/14/20 10:30 96 H 19 116/74 99 01/14/20 10:15 93 H 20 128/71 99 01/14/20 10:00 97 H 19 128/71 99 01/14/20 09:45 107 H 20 143/112 99 01/14/20 09:30 105 H 23 143/112 99 01/14/20 09:15 109 H 24 146/102 96 01/14/20 09:01 112 H 29 H 146/102 94 01/14/20 08:45 106 H 27 H 125/88 94 01/14/20 08:30 103 H 27 H 125/88 94 01/14/20 08:22 102 H 126/83 96 01/14/20 08:21 96 01/14/20 08:15 98 H 25 H 126/83 96 01/14/20 08:00 98.6 F 100 H 99 H 26 H 26 H 126/83 98 01/14/20 07:45 99 H 24 122/81 97 01/14/20 07:30 102 H 23 122/81 97 01/14/20 07:15 101 H 23 134/82 98 01/14/20 07:00 100 H 22 134/82 99 01/14/20 06:45 101 H 20 136/84 96 01/14/20 06:41 101 H 136/84 01/14/20 06:30 103 H 27 H 136/84 94 01/14/20 06:15 106 H 24 126/87 94 01/14/20 06:00 102 H 27 H 126/87 99 01/14/20 05:45 97 H 23 109/88 97 01/14/20 05:30 98 H 22 109/88 96 01/14/20 05:15 100 H 21 117/85 96 01/14/20 05:00 100 H 25 H 117/85 95 01/14/20 04:45 95 H 23 114/78 97 01/14/20 04:30 96 H 23 114/78 97 01/14/20 04:15 95 H 22 111/72 96 01/14/20 04:00 98.4 F 97 H 96 H 22 26 H 110/71 97 01/14/20 03:56 98 H 111/72 97 01/14/20 03:53 19 01/14/20 03:45 96 H 25 H 111/72 96 01/14/20 03:30 97 H 23 111/72 96 01/14/20 03:15 95 H 23 107/63 97 01/14/20 03:01 93 H 18 107/63 97 01/14/20 02:45 116 H 21 115/60 98 01/14/20 02:32 141 H 115/60 01/14/20 02:31 118 H 22 115/60 94 01/14/20 02:25 121 H 117/64 01/14/20 02:15 137 H 19 103/76 94 01/14/20 02:01 129 H 24 117/64 95 01/14/20 01:46 101 H 24 103/76 92 01/14/20 01:30 99 H 25 H 103/76 96 01/14/20 01:16 94 H 22 119/77 94 01/14/20 01:00 93 H 25 H 119/77 95 01/14/20 00:46 89 21 128/65 89 01/14/20 00:30 91 H 22 128/65 90 01/14/20 00:16 95 H 21 122/72 93 01/14/20 00:15 94 H 122/72 95 01/14/20 00:00 98.5 F 96 H 94 H 25 H 21 122/72 100 01/13/20 23:46 95 H 25 H 128/85 100 01/13/20 23:30 95 H 24 128/85 90 01/13/20 23:16 98 H 23 128/85 92 01/13/20 23:00 104 H 25 H 128/85 93 01/13/20 22:46 103 H 25 H 128/85 96 2120 22:42 28 H 01/13/20 22:30 103 H 22 128/85 94 20 22:16 102 H 22 107/76 93 20 22:00 96 H 24 107/76 94 20 21:46 96 H 26 H 116/80 95 01/13/20 21:30 96 H 25 H 116/80 94 01/13/20 21:16 97 H 25 H 119/73 94 20 21:06 94 H 25 H 119/73 94 20 21:01 97 01/13/20 21:00 94 H 24 119/73 95 01/13/20 20:46 100 H 28 H 119/71 93 01/13/20 20:30 96 H 21 119/71 94 01/13/20 20:16 93 H 24 113/80 93 01/13/20 20:00 97.9 F 94 H 98 H 25 H 25 H 119/73 97 01/13/20 19:46 96 H 26 H 112/88 95 01/13/20 19:30 101 H 20 112/88 95 01/13/20 19:16 97 H 27 H 116/80 94 01/13/20 19:00 98 H 26 H 116/80 91 01/13/20 18:46 97 H 25 H 113/76 92 01/13/20 18:30 95 H 23 113/76 94 01/13/20 18:16 95 H 23 122/78 96 01/13/20 18:00 94 H 24 122/78 96 01/13/20 17:46 92 H 22 120/78 98 01/13/20 17:30 91 H 20 120/78 96 01/13/20 17:16 91 H 24 101/78 96 01/13/20 17:10 91 H 100/78 98 01/13/20 17:00 95 H 23 101/78 01/13/20 16:46 88 22 105/69 98 01/13/20 16:30 89 21 100/69 97 01/13/20 16:16 88 21 105/69 96 01/13/20 16:00 98.0 F 85 85 21 21 105/69 92 01/13/20 15:46 84 19 103/68 95 01/13/20 15:30 84 18 103/68 94 01/13/20 15:16 81 19 109/67 94 01/13/20 15:00 86 20 109/67 90 01/13/20 14:46 88 21 111/72 95 01/13/20 14:30 88 20 111/72 93 01/13/20 14:16 86 20 116/74 95 01/13/20 14:00 86 18 116/74 92 01/13/20 13:46 130 H 21 119/84 95 01/13/20 13:30 128 H 23 119/84 93 01/13/20 13:16 127 H 21 116/92 93 01/13/20 13:00 137 H 23 116/92 94 01/13/20 12:46 131 H 22 125/81 96 01/13/20 12:35 01/13/20 12:34 94 01/13/20 12:30 130 H 25 H 125/81 92 01/13/20 12:16 98 H 22 117/65 96 01/13/20 12:00 97.9 F 99 H 99 H 22 22 117/65 96 01/13/20 11:46 108 H 17 117/65 94 Pulse Ox 01/14/20 11:30 01/14/20 11:15 01/14/20 11:00 01/14/20 10:45 01/14/20 10:30 01/14/20 10:15 01/14/20 10:00 01/14/20 09:45 01/14/20 09:30 01/14/20 09:15 01/14/20 09:01 01/14/20 08:45 01/14/20 08:30 01/14/20 08:22 01/14/20 08:21 01/14/20 08:15 01/14/20 08:00 01/14/20 07:45 01/14/20 07:30 01/14/20 07:15 01/14/20 07:00 01/14/20 06:45 01/14/20 06:41 01/14/20 06:30 01/14/20 06:15 01/14/20 06:00 01/14/20 05:45 01/14/20 05:30 01/14/20 05:15 01/14/20 05:00 01/14/20 04:45 01/14/20 04:30 01/14/20 04:15 01/14/20 04:00 01/14/20 03:56 01/14/20 03:53 01/14/20 03:45 01/14/20 03:30 01/14/20 03:15 01/14/20 03:01 01/14/20 02:45 01/14/20 02:32 01/14/20 02:31 01/14/20 02:25 01/14/20 02:15 01/14/20 02:01 01/14/20 01:46 01/14/20 01:30 01/14/20 01:16 01/14/20 01:00 01/14/20 00:46 01/14/20 00:30 01/14/20 00:16 01/14/20 00:15 01/14/20 00:00 01/13/20 23:46 01/13/20 23:30 01/13/20 23:16 01/13/20 23:00 01/13/20 22:46 01/13/20 22:42 01/13/20 22:30 01/13/20 22:16 01/13/20 22:00 01/13/20 21:46 01/13/20 21:30 01/13/20 21:16 01/13/20 21:06 01/13/20 21:01 01/13/20 21:00 01/13/20 20:46 01/13/20 20:30 01/13/20 20:16 01/13/20 20:00 01/13/20 19:46 01/13/20 19:30 01/13/20 19:16 01/13/20 19:00 01/13/20 18:46 01/13/20 18:30 01/13/20 18:16 01/13/20 18:00 01/13/20 17:46 01/13/20 17:30 01/13/20 17:16 01/13/20 17:10 01/13/20 17:00 01/13/20 16:46 01/13/20 16:30 01/13/20 16:16 01/13/20 16:00 01/13/20 15:46 01/13/20 15:30 01/13/20 15:16 01/13/20 15:00 01/13/20 14:46 01/13/20 14:30 01/13/20 14:16 01/13/20 14:00 01/13/20 13:46 01/13/20 13:30 01/13/20 13:16 01/13/20 13:00 01/13/20 12:46 01/13/20 12:35 94 01/13/20 12:34 01/13/20 12:30 01/13/20 12:16 01/13/20 12:00 01/13/20 11:46 - Physical Examination General: Other (Awake, vent to trach) HEENT: Positive: PERRL Neck: Positive: neck supple Cardiac: Positive: Reg Rate and Rhythm Lungs: Positive: Decreased Breath Sounds Neuro: Positive: Weakness, Other (Sedated, on the vent via trach) Abdomen: Positive: Soft Skin: Positive: Clear Extremities: Absent: edema - Allied health notes Allied health notes reviewed: nursing
[2020-01-14] MEDS ORDERED: MAGNESIUM HYDROXIDE (MOM) ORAL LIQD UDC PO PRN (13:35)
--- NOTE | 2020-01-14 13:49 | Progress Note ---
Assessment and Plan Acute hypoxemic respiratory failure Bilateral pneumonia, community acquired. Acute LLL branch P.E. Acute DVT Person under investigation for COVID-19 infection. Acute congestive heart failure exacerbation. History of cerebrovascular accident. Acute chronic obstructive pulmonary disease exacerbation. Hypertension and hypertensive urgency at presentation. History of arthritis. Leukocytosis. Lactic acidosis. Oropharyngeal dysphagia - passed bedside SBT but will get full swallow evaluation - downsize tracheostomy to a #6 Shiley - keep on RTC t-piece as tolerated - prn ABG's at this time - continue Robinul TID - continue care as below otherwise; - continue Apixaban for VTE - continue scopolamine patch for secretions - continue seroquel for anxiolysis / delirium - COVID isolation per facility protocol - prn diuresis while following electrolytes / I's & O's - continue to wean oxygen for O2 sat's > 92% - continue bronchodilators with routine trach care and pulmonary hygiene per RT - aspiration precautions, HOB >40 - continue to wean per pulmonary driven protocols - continue prn analgesia per pain score - follow clinically re: fever curves / trend WBC - Avoid delirium (no benzodiazepines if they can be avoided) - Maintain sleep-wake cycle - enteral nutrition at goal rate as tolerated - continue accucheck's with glycemic control per SSI for target blood glucose goal of < 180 mg/dL; Avoid hypoglycemia - continue stress ulcer prophylaxis with Famotidine - continue mobility protocols for pressure ulcer prophylaxis - continue fall precautions - continue wound care management per RN / WCT - Supportive transfusions to keep HgB>7g/dL - CXR's and ABG's prn - Continue to monitor neurologic function - Continue chronic home medications - Continue all supportive care .... will transfer to [facility] ........ re-evaluate in am & prn CONDITION: FAIR PROGNOSIS: GUARDED CODE STATUS: FULL CODE Subjective Date of service: 01/14/20 Principal diagnosis: Ac hypoxemic resp failure; Pneumonia; PUI COVID-19; CHF; COPD; HTN Interval history: Patient is seen today for: Acute hypoxemic respiratory failure; Adan. Pneumonia (CAP); PUI COVID-19 infection; AE-CHF; AE-COPD; H/O CVA; HTN Seen and examined at bedside; 24 hour events reviewed; nursing and respiratory care staff consulted; no adverse overnight events reported to me; resting peacefully in bed; remains on MVS; tolerated RTC t-piece well so far; wants to eat; No N/V/F/C Objective Vital Signs - 12hr 01/14/20 01/14/20 01/14/20 02:01 02:15 02:25 Temperature Pulse Rate 129 H 137 H 121 H Pulse Rate [ From Monitor] Respiratory 24 19 Rate Respiratory Rate [Abdomen] Blood Pressure 117/64 103/76 117/64 O2 Sat by Pulse 95 94 Oximetry O2 Sat by Pulse Oximetry [ Assessment] 01/14/20 01/14/20 01/14/20 02:31 02:32 02:45 Temperature Pulse Rate 118 H 141 H 116 H Pulse Rate [ From Monitor] Respiratory 22 21 Rate Respiratory Rate [Abdomen] Blood Pressure 115/60 115/60 115/60 O2 Sat by Pulse 94 98 Oximetry O2 Sat by Pulse Oximetry [ Assessment] 01/14/20 01/14/20 01/14/20 03:01 03:15 03:30 Temperature Pulse Rate 93 H 95 H 97 H Pulse Rate [ From Monitor] Respiratory 18 23 23 Rate Respiratory Rate [Abdomen] Blood Pressure 107/63 107/63 111/72 O2 Sat by Pulse 97 97 96 Oximetry O2 Sat by Pulse Oximetry [ Assessment] 01/14/20 01/14/20 01/14/20 03:45 03:53 03:56 Temperature Pulse Rate 96 H 98 H Pulse Rate [ From Monitor] Respiratory 25 H 19 Rate Respiratory Rate [Abdomen] Blood Pressure 111/72 111/72 O2 Sat by Pulse 96 97 Oximetry O2 Sat by Pulse Oximetry [ Assessment] 01/14/20 01/14/20 01/14/20 04:00 04:15 04:30 Temperature 98.4 F Pulse Rate 97 H 95 H 96 H Pulse Rate [ 96 H From Monitor] Respiratory 22 22 23 Rate Respiratory 26 H Rate [Abdomen] Blood Pressure 110/71 111/72 114/78 O2 Sat by Pulse 97 96 97 Oximetry O2 Sat by Pulse Oximetry [ Assessment] 01/14/20 01/14/20 01/14/20 04:45 05:00 05:15 Temperature Pulse Rate 95 H 100 H 100 H Pulse Rate [ From Monitor] Respiratory 23 25 H 21 Rate Respiratory Rate [Abdomen] Blood Pressure 114/78 117/85 117/85 O2 Sat by Pulse 97 95 96 Oximetry O2 Sat by Pulse Oximetry [ Assessment] 01/14/20 01/14/20 01/14/20 05:30 05:45 06:00 Temperature Pulse Rate 98 H 97 H 102 H Pulse Rate [ From Monitor] Respiratory 22 23 27 H Rate Respiratory Rate [Abdomen] Blood Pressure 109/88 109/88 126/87 O2 Sat by Pulse 96 97 99 Oximetry O2 Sat by Pulse Oximetry [ Assessment] 01/14/20 01/14/20 01/14/20 06:15 06:30 06:41 Temperature Pulse Rate 106 H 103 H 101 H Pulse Rate [ From Monitor] Respiratory 24 27 H Rate Respiratory Rate [Abdomen] Blood Pressure 126/87 136/84 136/84 O2 Sat by Pulse 94 94 Oximetry O2 Sat by Pulse Oximetry [ Assessment] 01/14/20 01/14/20 01/14/20 06:45 07:00 07:15 Temperature Pulse Rate 101 H 100 H 101 H Pulse Rate [ From Monitor] Respiratory 20 22 23 Rate Respiratory Rate [Abdomen] Blood Pressure 136/84 134/82 134/82 O2 Sat by Pulse 96 99 98 Oximetry O2 Sat by Pulse Oximetry [ Assessment] 01/14/20 01/14/20 01/14/20 07:30 07:45 08:00 Temperature 98.6 F Pulse Rate 102 H 99 H 100 H Pulse Rate [ 99 H From Monitor] Respiratory 23 24 26 H Rate Respiratory 26 H Rate [Abdomen] Blood Pressure 122/81 122/81 126/83 O2 Sat by Pulse 97 97 98 Oximetry O2 Sat by Pulse Oximetry [ Assessment] 01/14/20 01/14/20 01/14/20 08:15 08:21 08:22 Temperature Pulse Rate 98 H 102 H Pulse Rate [ From Monitor] Respiratory 25 H Rate Respiratory Rate [Abdomen] Blood Pressure 126/83 126/83 O2 Sat by Pulse 96 96 96 Oximetry O2 Sat by Pulse Oximetry [ Assessment] 01/14/20 01/14/20 01/14/20 08:30 08:45 09:01 Temperature Pulse Rate 103 H 106 H 112 H Pulse Rate [ From Monitor] Respiratory 27 H 27 H 29 H Rate Respiratory Rate [Abdomen] Blood Pressure 125/88 125/88 146/102 O2 Sat by Pulse 94 94 94 Oximetry O2 Sat by Pulse Oximetry [ Assessment] 01/14/20 01/14/20 01/14/20 09:15 09:30 09:45 Temperature Pulse Rate 109 H 105 H 107 H Pulse Rate [ From Monitor] Respiratory 24 23 20 Rate Respiratory Rate [Abdomen] Blood Pressure 146/102 143/112 143/112 O2 Sat by Pulse 96 99 99 Oximetry O2 Sat by Pulse Oximetry [ Assessment] 01/14/20 01/14/20 01/14/20 10:00 10:15 10:30 Temperature Pulse Rate 97 H 93 H 96 H Pulse Rate [ From Monitor] Respiratory 19 20 19 Rate Respiratory Rate [Abdomen] Blood Pressure 128/71 128/71 116/74 O2 Sat by Pulse 99 99 99 Oximetry O2 Sat by Pulse Oximetry [ Assessment] 01/14/20 01/14/20 01/14/20 10:45 11:00 11:15 Temperature Pulse Rate 101 H 99 H 98 H Pulse Rate [ From Monitor] Respiratory 19 19 22 Rate Respiratory Rate [Abdomen] Blood Pressure 116/74 116/77 116/77 O2 Sat by Pulse 98 99 100 Oximetry O2 Sat by Pulse Oximetry [ Assessment] 01/14/20 01/14/20 01/14/20 11:30 11:45 12:00 Temperature 97.7 F Pulse Rate 97 H 99 H 90 Pulse Rate [ 94 H From Monitor] Respiratory 17 21 19 Rate Respiratory 26 H Rate [Abdomen] Blood Pressure 110/75 110/75 120/84 O2 Sat by Pulse 100 99 100 Oximetry O2 Sat by Pulse Oximetry [ Assessment] 01/14/20 01/14/20 01/14/20 12:15 12:30 12:45 Temperature Pulse Rate 96 H 87 97 H Pulse Rate [ From Monitor] Respiratory 23 17 21 Rate Respiratory Rate [Abdomen] Blood Pressure 120/84 119/80 119/80 O2 Sat by Pulse 99 99 100 Oximetry O2 Sat by Pulse Oximetry [ Assessment] 01/14/20 01/14/20 13:00 13:03 Temperature Pulse Rate 94 H 96 H Pulse Rate [ From Monitor] Respiratory 24 Rate Respiratory Rate [Abdomen] Blood Pressure 119/80 119/80 O2 Sat by Pulse 96 95 Oximetry O2 Sat by Pulse 96 Oximetry [ Assessment] Constitutional: no acute distress, other (elelderly and obese male, normocephalic with mildly increased respiratory effort at rest on MVS) Eyes: non-icteric ENT: oropharynx moist, other (trach to t-piece) Neck: supple, no JVD Effort: mildly labored Ascultation: Bilateral: diminished breath sounds, rhonchi Percussion: Bilateral: not dull Cardiovascular: irregular rhythm, other (S1,S2) Gastrointestinal: normoactive bowel sounds, soft, non-tender, other (protuberant; PEG in place) Integumentary: normal Extremities: no cyanosis, pulses normal, no ischemia or petechiae, edema (bilateral upper ) Neurologic: non-focal exam (moves extremities), pupils equal and round, CN II- XII normal, motor strength normal and (weak) Psychiatric: mood appropriate, affect normal CBC and BMP: 01/12/20 04:18 01/12/20 04:18 ABG, PT/INR, D-dimer: ABG ABG pH 7.449 pH Units (7.350-7.450) 01/13/20 20:40 POC ABG pCO2 45.6 mmHg (32.0-48.0) 01/12/20 13:58 ABG pCO2 46.9 mm Hg 01/13/20 20:40 POC ABG pO2 76.6 mmHg (83-108) L 01/12/20 13:58 ABG pO2 65.3 mm Hg (80.0-90.0) L 01/13/20 20:40 POC ABG HCO3 31.2 01/12/20 13:58 ABG O2 Saturation 93.5 % (95.0-99.0) L 01/13/20 20:40 PT/INR, D-dimer PT 13.8 Sec. (12.2-14.9) 12/21/19 10:13 INR 1.05 (0.87-1.13) 12/21/19 10:13 Abnormal lab findings: Abnormal Labs 11/24/19 11/24/19 11/24/19 02:53 02:53 03:45 WBC 14.3 H RBC Hgb Hct MCHC RDW 17.2 H MCV MCH Lymph % (Auto) Patrick % (Auto) Patrick # Eos # Lymph # (Auto) Patrick # (Auto) Eos # (Auto) Seg Neutrophils % Seg Neuts % (Manual) Baso # (Auto) Lymphocytes % (Manual) Monocytes % (Manual) Eosinophils % (Manual) Basophils % (Manual) Seg Neutrophils # Seg Neutrophils # Man 8.3 H Lymphocytes # (Manual) Monocytes # (Manual) 0.9 H Eosinophils # (Manual) Nucleated RBC % Basophils # (Manual) APTT Heparin Anti-Xa Level ABG pH 7.313 L POC ABG pO2 ABG pO2 102.8 H ABG HCO3 ABG O2 Saturation ABG Base Excess -2.9 L POC ABG pCO2 ABG Hemoglobin ABG Oxyhemoglobin ABG Glucose Oxyhemoglobin 93.9 L Sodium Potassium Chloride Carbon Dioxide BUN Creatinine Glucose 195 H POC Glucose Lactic Acid Calcium Phosphorus Magnesium AST ALT Lactate Dehydrogenase CK-MB (CK-2) 4.3 H C-Reactive Protein NT-Pro-B Natriuret Pep 1181 H Total Protein Albumin Arterial Blood Glucose Urine WBC (Auto) 11/24/19 11/24/19 11/24/19 04:53 04:53 10:37 WBC RBC Hgb Hct MCHC RDW MCV MCH Lymph % (Auto) Patrick % (Auto) Patrick # Eos # Lymph # (Auto) Patrick # (Auto) Eos # (Auto) Seg Neutrophils % Seg Neuts % (Manual) Baso # (Auto) Lymphocytes % (Manual) Monocytes % (Manual) Eosinophils % (Manual) Basophils % (Manual) Seg Neutrophils # Seg Neutrophils # Man Lymphocytes # (Manual) Monocytes # (Manual) Eosinophils # (Manual) Nucleated RBC % Basophils # (Manual) APTT Heparin Anti-Xa Level ABG pH POC ABG pO2 ABG pO2 ABG HCO3 ABG O2 Saturation ABG Base Excess POC ABG pCO2 ABG Hemoglobin ABG Oxyhemoglobin ABG Glucose Oxyhemoglobin Sodium Potassium Chloride Carbon Dioxide BUN Creatinine Glucose 162 H POC Glucose Lactic Acid 2.40 H* 2.50 H* Calcium Phosphorus Magnesium AST ALT Lactate Dehydrogenase 240 H CK-MB (CK-2) C-Reactive Protein NT-Pro-B Natriuret Pep Total Protein Albumin Arterial Blood Glucose Urine WBC (Auto) 11/24/19 11/24/19 11/24/19 12:21 14:50 19:54 WBC RBC Hgb Hct MCHC RDW MCV MCH Lymph % (Auto) Patrick % (Auto) Patrick # Eos # Lymph # (Auto) Patrick # (Auto) Eos # (Auto) Seg Neutrophils % Seg Neuts % (Manual) Baso # (Auto) Lymphocytes % (Manual) Monocytes % (Manual) Eosinophils % (Manual) Basophils % (Manual) Seg Neutrophils # Seg Neutrophils # Man Lymphocytes # (Manual) Monocytes # (Manual) Eosinophils # (Manual) Nucleated RBC % Basophils # (Manual) APTT Heparin Anti-Xa Level ABG pH POC ABG pO2 ABG pO2 ABG HCO3 ABG O2 Saturation ABG Base Excess POC ABG pCO2 ABG Hemoglobin ABG Oxyhemoglobin ABG Glucose Oxyhemoglobin Sodium Potassium Chloride Carbon Dioxide BUN Creatinine Glucose POC Glucose 145 H 143 H 124 H Lactic Acid Calcium Phosphorus Magnesium AST ALT Lactate Dehydrogenase CK-MB (CK-2) C-Reactive Protein NT-Pro-B Natriuret Pep Total Protein Albumin Arterial Blood Glucose Urine WBC (Auto) 11/25/19 11/25/19 11/25/19 00:18 03:18 05:11 WBC 13.7 H RBC Hgb Hct MCHC RDW 17.1 H MCV MCH Lymph % (Auto) 10.8 L Patrick % (Auto) 8.7 H Patrick # 1.2 H Eos # Lymph # (Auto) Patrick # (Auto) Eos # (Auto) Seg Neutrophils % 80.2 H Seg Neuts % (Manual) Baso # (Auto) Lymphocytes % (Manual) Monocytes % (Manual) Eosinophils % (Manual) Basophils % (Manual) Seg Neutrophils # 11.0 H Seg Neutrophils # Man Lymphocytes # (Manual) Monocytes # (Manual) Eosinophils # (Manual) Nucleated RBC % Basophils # (Manual) APTT Heparin Anti-Xa Level ABG pH 7.333 L POC ABG pO2 ABG pO2 61.2 L ABG HCO3 ABG O2 Saturation 90.2 L ABG Base Excess POC ABG pCO2 ABG Hemoglobin 13.7 L ABG Oxyhemoglobin ABG Glucose Oxyhemoglobin 88.2 L Sodium Potassium Chloride Carbon Dioxide BUN Creatinine Glucose POC Glucose 109 H Lactic Acid Calcium Phosphorus Magnesium AST ALT Lactate Dehydrogenase CK-MB (CK-2) C-Reactive Protein NT-Pro-B Natriuret Pep Total Protein Albumin Arterial Blood Glucose Urine WBC (Auto) 11/25/19 11/25/19 11/26/19 05:11 11:40 03:12 WBC RBC Hgb Hct MCHC RDW MCV MCH Lymph % (Auto) Patrick % (Auto) Patrick # Eos # Lymph # (Auto) Patrick # (Auto) Eos # (Auto) Seg Neutrophils % Seg Neuts % (Manual) Baso # (Auto) Lymphocytes % (Manual) Monocytes % (Manual) Eosinophils % (Manual) Basophils % (Manual) Seg Neutrophils # Seg Neutrophils # Man Lymphocytes # (Manual) Monocytes # (Manual) Eosinophils # (Manual) Nucleated RBC % Basophils # (Manual) APTT Heparin Anti-Xa Level ABG pH POC ABG pO2 ABG pO2 155.1 H ABG HCO3 27.8 H ABG O2 Saturation ABG Base Excess POC ABG pCO2 ABG Hemoglobin 12.2 L ABG Oxyhemoglobin ABG Glucose Oxyhemoglobin Sodium Potassium Chloride Carbon Dioxide BUN 23 H Creatinine Glucose 110 H POC Glucose 108 H Lactic Acid Calcium Phosphorus Magnesium AST ALT Lactate Dehydrogenase CK-MB (CK-2) C-Reactive Protein NT-Pro-B Natriuret Pep Total Protein Albumin Arterial Blood Glucose Urine WBC (Auto) 11/26/19 11/26/19 11/26/19 06:17 10:43 10:43 WBC 11.4 H RBC Hgb Hct MCHC RDW 17.1 H MCV MCH Lymph % (Auto) Patrick % (Auto) Patrick # Eos # Lymph # (Auto) Patrick # (Auto) Eos # (Auto) Seg Neutrophils % Seg Neuts % (Manual) Baso # (Auto) Lymphocytes % (Manual) Monocytes % (Manual) Eosinophils % (Manual) Basophils % (Manual) Seg Neutrophils # Seg Neutrophils # Man Lymphocytes # (Manual) Monocytes # (Manual) Eosinophils # (Manual) Nucleated RBC % Basophils # (Manual) APTT Heparin Anti-Xa Level ABG pH POC ABG pO2 ABG pO2 ABG HCO3 ABG O2 Saturation ABG Base Excess POC ABG pCO2 ABG Hemoglobin ABG Oxyhemoglobin ABG Glucose Oxyhemoglobin Sodium Potassium Chloride Carbon Dioxide BUN 29 H Creatinine Glucose POC Glucose 107 H Lactic Acid Calcium Phosphorus Magnesium AST ALT Lactate Dehydrogenase CK-MB (CK-2) C-Reactive Protein NT-Pro-B Natriuret Pep Total Protein Albumin Arterial Blood Glucose Urine WBC (Auto) 11/26/19 11/27/19 11/27/19 17:11 01:53 04:11 WBC RBC Hgb Hct MCHC RDW MCV MCH Lymph % (Auto) Patrick % (Auto) Patrick # Eos # Lymph # (Auto) Patrick # (Auto) Eos # (Auto) Seg Neutrophils % Seg Neuts % (Manual) Baso # (Auto) Lymphocytes % (Manual) Monocytes % (Manual) Eosinophils % (Manual) Basophils % (Manual) Seg Neutrophils # Seg Neutrophils # Man Lymphocytes # (Manual) Monocytes # (Manual) Eosinophils # (Manual) Nucleated RBC % Basophils # (Manual) APTT Heparin Anti-Xa Level ABG pH POC ABG pO2 ABG pO2 ABG HCO3 29.2 H ABG O2 Saturation ABG Base Excess 3.4 H POC ABG pCO2 ABG Hemoglobin 13.3 L ABG Oxyhemoglobin ABG Glucose Oxyhemoglobin 94.5 L Sodium Potassium Chloride Carbon Dioxide BUN Creatinine Glucose POC Glucose 113 H 108 H Lactic Acid Calcium Phosphorus Magnesium AST ALT Lactate Dehydrogenase CK-MB (CK-2) C-Reactive Protein NT-Pro-B Natriuret Pep Total Protein Albumin Arterial Blood Glucose Urine WBC (Auto) 11/27/19 11/28/19 11/28/19 05:27 05:00 05:25 WBC RBC Hgb Hct MCHC RDW MCV MCH Lymph % (Auto) Patrick % (Auto) Patrick # Eos # Lymph # (Auto) Patrick # (Auto) Eos # (Auto) Seg Neutrophils % Seg Neuts % (Manual) Baso # (Auto) Lymphocytes % (Manual) Monocytes % (Manual) Eosinophils % (Manual) Basophils % (Manual) Seg Neutrophils # Seg Neutrophils # Man Lymphocytes # (Manual) Monocytes # (Manual) Eosinophils # (Manual) Nucleated RBC % Basophils # (Manual) APTT Heparin Anti-Xa Level ABG pH POC ABG pO2 68.1 L ABG pO2 ABG HCO3 ABG O2 Saturation ABG Base Excess POC ABG pCO2 ABG Hemoglobin ABG Oxyhemoglobin 91.2 L ABG Glucose Oxyhemoglobin Sodium Potassium Chloride Carbon Dioxide BUN Creatinine Glucose POC Glucose 111 H 110 H Lactic Acid Calcium Phosphorus Magnesium AST ALT Lactate Dehydrogenase CK-MB (CK-2) C-Reactive Protein NT-Pro-B Natriuret Pep Total Protein Albumin Arterial Blood Glucose Urine WBC (Auto) 11/28/19 11/28/19 11/28/19 12:08 13:47 13:47 WBC 11.3 H RBC Hgb Hct MCHC RDW 16.1 H MCV MCH Lymph % (Auto) Patrick % (Auto) 9.9 H Patrick # 1.1 H Eos # Lymph # (Auto) Patrick # (Auto) Eos # (Auto) Seg Neutrophils % 71.4 H Seg Neuts % (Manual) Baso # (Auto) Lymphocytes % (Manual) Monocytes % (Manual) Eosinophils % (Manual) Basophils % (Manual) Seg Neutrophils # 8.1 H Seg Neutrophils # Man Lymphocytes # (Manual) Monocytes # (Manual) Eosinophils # (Manual) Nucleated RBC % Basophils # (Manual) APTT Heparin Anti-Xa Level ABG pH POC ABG pO2 ABG pO2 ABG HCO3 ABG O2 Saturation ABG Base Excess POC ABG pCO2 ABG Hemoglobin ABG Oxyhemoglobin ABG Glucose Oxyhemoglobin Sodium Potassium Chloride Carbon Dioxide BUN 23 H Creatinine Glucose 123 H POC Glucose 112 H Lactic Acid Calcium Phosphorus Magnesium AST ALT Lactate Dehydrogenase CK-MB (CK-2) C-Reactive Protein NT-Pro-B Natriuret Pep Total Protein Albumin 3.7 L Arterial Blood Glucose Urine WBC (Auto) 11/28/19 11/29/19 11/29/19 17:26 03:55 17:04 WBC RBC Hgb Hct MCHC RDW MCV MCH Lymph % (Auto) Patrick % (Auto) Patrick # Eos # Lymph # (Auto) Patrick # (Auto) Eos # (Auto) Seg Neutrophils % Seg Neuts % (Manual) Baso # (Auto) Lymphocytes % (Manual) Monocytes % (Manual) Eosinophils % (Manual) Basophils % (Manual) Seg Neutrophils # Seg Neutrophils # Man Lymphocytes # (Manual) Monocytes # (Manual) Eosinophils # (Manual) Nucleated RBC % Basophils # (Manual) APTT Heparin Anti-Xa Level ABG pH POC ABG pO2 ABG pO2 65.7 L ABG HCO3 28.3 H ABG O2 Saturation 93.9 L ABG Base Excess 3.6 H POC ABG pCO2 ABG Hemoglobin 13.3 L ABG Oxyhemoglobin ABG Glucose Oxyhemoglobin 91.5 L Sodium Potassium Chloride Carbon Dioxide BUN Creatinine Glucose POC Glucose 123 H 119 H Lactic Acid Calcium Phosphorus Magnesium AST ALT Lactate Dehydrogenase CK-MB (CK-2) C-Reactive Protein NT-Pro-B Natriuret Pep Total Protein Albumin Arterial Blood Glucose Urine WBC (Auto) 11/30/19 11/30/19 11/30/19 04:17 04:17 04:56 WBC 13.4 H RBC Hgb Hct MCHC RDW 15.6 H MCV MCH Lymph % (Auto) Patrick % (Auto) Patrick # Eos # Lymph # (Auto) Patrick # (Auto) Eos # (Auto) Seg Neutrophils % Seg Neuts % (Manual) Baso # (Auto) Lymphocytes % (Manual) Monocytes % (Manual) Eosinophils % (Manual) Basophils % (Manual) Seg Neutrophils # Seg Neutrophils # Man Lymphocytes # (Manual) Monocytes # (Manual) Eosinophils # (Manual) Nucleated RBC % Basophils # (Manual) APTT Heparin Anti-Xa Level ABG pH POC ABG pO2 ABG pO2 56.3 L ABG HCO3 29.3 H ABG O2 Saturation 91.5 L ABG Base Excess 4.7 H POC ABG pCO2 ABG Hemoglobin 12.1 L ABG Oxyhemoglobin ABG Glucose Oxyhemoglobin 89.2 L Sodium 147 H Potassium Chloride Carbon Dioxide BUN 30 H Creatinine Glucose 124 H POC Glucose Lactic Acid Calcium Phosphorus Magnesium AST ALT Lactate Dehydrogenase CK-MB (CK-2) C-Reactive Protein NT-Pro-B Natriuret Pep Total Protein Albumin 3.8 L Arterial Blood Glucose Urine WBC (Auto) 11/30/19 11/30/19 11/30/19 05:51 11:54 18:17 WBC RBC Hgb Hct MCHC RDW MCV MCH Lymph % (Auto) Patrick % (Auto) Patrick # Eos # Lymph # (Auto) Patrick # (Auto) Eos # (Auto) Seg Neutrophils % Seg Neuts % (Manual) Baso # (Auto) Lymphocytes % (Manual) Monocytes % (Manual) Eosinophils % (Manual) Basophils % (Manual) Seg Neutrophils # Seg Neutrophils # Man Lymphocytes # (Manual) Monocytes # (Manual) Eosinophils # (Manual) Nucleated RBC % Basophils # (Manual) APTT Heparin Anti-Xa Level ABG pH POC ABG pO2 ABG pO2 ABG HCO3 ABG O2 Saturation ABG Base Excess POC ABG pCO2 ABG Hemoglobin ABG Oxyhemoglobin ABG Glucose Oxyhemoglobin Sodium Potassium Chloride Carbon Dioxide BUN Creatinine Glucose POC Glucose 127 H 115 H 143 H Lactic Acid Calcium Phosphorus Magnesium AST ALT Lactate Dehydrogenase CK-MB (CK-2) C-Reactive Protein NT-Pro-B Natriuret Pep Total Protein Albumin Arterial Blood Glucose Urine WBC (Auto) 12/01/19 12/01/19 12/01/19 01:18 05:22 12:16 WBC RBC Hgb Hct MCHC RDW MCV MCH Lymph % (Auto) Patrick % (Auto) Patrick # Eos # Lymph # (Auto) Patrick # (Auto) Eos # (Auto) Seg Neutrophils % Seg Neuts % (Manual) Baso # (Auto) Lymphocytes % (Manual) Monocytes % (Manual) Eosinophils % (Manual) Basophils % (Manual) Seg Neutrophils # Seg Neutrophils # Man Lymphocytes # (Manual) Monocytes # (Manual) Eosinophils # (Manual) Nucleated RBC % Basophils # (Manual) APTT Heparin Anti-Xa Level ABG pH POC ABG pO2 ABG pO2 ABG HCO3 ABG O2 Saturation ABG Base Excess POC ABG pCO2 ABG Hemoglobin ABG Oxyhemoglobin ABG Glucose Oxyhemoglobin Sodium Potassium 3.5 L Chloride 107.8 H Carbon Dioxide BUN 37 H Creatinine Glucose 157 H POC Glucose 118 H 148 H Lactic Acid Calcium 8.2 L D Phosphorus Magnesium AST 48 H ALT 60 H Lactate Dehydrogenase 194 H CK-MB (CK-2) C-Reactive Protein 8.50 H NT-Pro-B Natriuret Pep Total Protein 5.5 L Albumin 2.8 L Arterial Blood Glucose Urine WBC (Auto) 12/01/19 12/02/19 12/02/19 18:04 00:05 05:16 WBC 11.4 H RBC Hgb Hct MCHC RDW 15.9 H MCV MCH Lymph % (Auto) Patrick % (Auto) 9.9 H Patrick # 1.1 H Eos # Lymph # (Auto) Patrick # (Auto) Eos # (Auto) Seg Neutrophils % 70.3 H Seg Neuts % (Manual) Baso # (Auto) Lymphocytes % (Manual) Monocytes % (Manual) Eosinophils % (Manual) Basophils % (Manual) Seg Neutrophils # 8.0 H Seg Neutrophils # Man Lymphocytes # (Manual) Monocytes # (Manual) Eosinophils # (Manual) Nucleated RBC % Basophils # (Manual) APTT Heparin Anti-Xa Level ABG pH POC ABG pO2 ABG pO2 ABG HCO3 ABG O2 Saturation ABG Base Excess POC ABG pCO2 ABG Hemoglobin ABG Oxyhemoglobin ABG Glucose Oxyhemoglobin Sodium Potassium Chloride Carbon Dioxide BUN Creatinine Glucose POC Glucose 143 H 107 H Lactic Acid Calcium Phosphorus Magnesium AST ALT Lactate Dehydrogenase CK-MB (CK-2) C-Reactive Protein NT-Pro-B Natriuret Pep Total Protein Albumin Arterial Blood Glucose Urine WBC (Auto) 12/02/19 12/02/19 12/02/19 05:16 06:03 11:52 WBC RBC Hgb Hct MCHC RDW MCV MCH Lymph % (Auto) Patrick % (Auto) Patrick # Eos # Lymph # (Auto) Patrick # (Auto) Eos # (Auto) Seg Neutrophils % Seg Neuts % (Manual) Baso # (Auto) Lymphocytes % (Manual) Monocytes % (Manual) Eosinophils % (Manual) Basophils % (Manual) Seg Neutrophils # Seg Neutrophils # Man Lymphocytes # (Manual) Monocytes # (Manual) Eosinophils # (Manual) Nucleated RBC % Basophils # (Manual) APTT Heparin Anti-Xa Level ABG pH POC ABG pO2 ABG pO2 ABG HCO3 ABG O2 Saturation ABG Base Excess POC ABG pCO2 ABG Hemoglobin ABG Oxyhemoglobin ABG Glucose Oxyhemoglobin Sodium 146 H Potassium Chloride Carbon Dioxide BUN 28 H Creatinine Glucose 123 H POC Glucose 110 H 152 H Lactic Acid Calcium Phosphorus Magnesium AST ALT Lactate Dehydrogenase CK-MB (CK-2) C-Reactive Protein NT-Pro-B Natriuret Pep Total Protein Albumin Arterial Blood Glucose Urine WBC (Auto) 12/02/19 12/02/19 12/02/19 12:58 17:58 23:36 WBC RBC Hgb Hct MCHC RDW MCV MCH Lymph % (Auto) Patrick % (Auto) Patrick # Eos # Lymph # (Auto) Patrick # (Auto) Eos # (Auto) Seg Neutrophils % Seg Neuts % (Manual) Baso # (Auto) Lymphocytes % (Manual) Monocytes % (Manual) Eosinophils % (Manual) Basophils % (Manual) Seg Neutrophils # Seg Neutrophils # Man Lymphocytes # (Manual) Monocytes # (Manual) Eosinophils # (Manual) Nucleated RBC % Basophils # (Manual) APTT Heparin Anti-Xa Level ABG pH POC ABG pO2 78.1 L ABG pO2 ABG HCO3 ABG O2 Saturation ABG Base Excess POC ABG pCO2 ABG Hemoglobin ABG Oxyhemoglobin ABG Glucose Oxyhemoglobin Sodium Potassium Chloride Carbon Dioxide BUN Creatinine Glucose POC Glucose 120 H 123 H Lactic Acid Calcium Phosphorus Magnesium AST ALT Lactate Dehydrogenase CK-MB (CK-2) C-Reactive Protein NT-Pro-B Natriuret Pep Total Protein Albumin Arterial Blood Glucose Urine WBC (Auto) 12/03/19 12/03/19 12/03/19 06:03 06:14 11:46 WBC RBC Hgb Hct MCHC RDW MCV MCH Lymph % (Auto) Patrick % (Auto) Patrick # Eos # Lymph # (Auto) Patrick # (Auto) Eos # (Auto) Seg Neutrophils % Seg Neuts % (Manual) Baso # (Auto) Lymphocytes % (Manual) Monocytes % (Manual) Eosinophils % (Manual) Basophils % (Manual) Seg Neutrophils # Seg Neutrophils # Man Lymphocytes # (Manual) Monocytes # (Manual) Eosinophils # (Manual) Nucleated RBC % Basophils # (Manual) APTT Heparin Anti-Xa Level ABG pH POC ABG pO2 ABG pO2 ABG HCO3 ABG O2 Saturation ABG Base Excess POC ABG pCO2 ABG Hemoglobin ABG Oxyhemoglobin ABG Glucose Oxyhemoglobin Sodium Potassium Chloride Carbon Dioxide BUN Creatinine Glucose POC Glucose 142 H 130 H Lactic Acid Calcium Phosphorus Magnesium AST ALT Lactate Dehydrogenase CK-MB (CK-2) C-Reactive Protein NT-Pro-B Natriuret Pep Total Protein Albumin Arterial Blood Glucose Urine WBC (Auto) 8.0 H 12/03/19 12/03/19 12/04/19 15:50 17:39 00:04 WBC RBC Hgb Hct MCHC RDW MCV MCH Lymph % (Auto) Patrick % (Auto) Patrick # Eos # Lymph # (Auto) Patrick # (Auto) Eos # (Auto) Seg Neutrophils % Seg Neuts % (Manual) Baso # (Auto) Lymphocytes % (Manual) Monocytes % (Manual) Eosinophils % (Manual) Basophils % (Manual) Seg Neutrophils # Seg Neutrophils # Man Lymphocytes # (Manual) Monocytes # (Manual) Eosinophils # (Manual) Nucleated RBC % Basophils # (Manual) APTT Heparin Anti-Xa Level ABG pH POC ABG pO2 ABG pO2 ABG HCO3 ABG O2 Saturation ABG Base Excess POC ABG pCO2 ABG Hemoglobin ABG Oxyhemoglobin ABG Glucose Oxyhemoglobin Sodium Potassium Chloride Carbon Dioxide BUN Creatinine Glucose POC Glucose 146 H 133 H Lactic Acid Calcium Phosphorus 2.40 L Magnesium AST ALT Lactate Dehydrogenase CK-MB (CK-2) C-Reactive Protein NT-Pro-B Natriuret Pep Total Protein Albumin Arterial Blood Glucose Urine WBC (Auto) 12/04/19 12/04/19 12/04/19 03:58 03:58 05:22 WBC 12.5 H RBC Hgb 11.2 L Hct 35.2 L MCHC RDW 16.0 H MCV MCH Lymph % (Auto) Patrick % (Auto) 9.6 H Patrick # 1.2 H Eos # 0.5 H Lymph # (Auto) Patrick # (Auto) Eos # (Auto) Seg Neutrophils % Seg Neuts % (Manual) Baso # (Auto) Lymphocytes % (Manual) Monocytes % (Manual) Eosinophils % (Manual) Basophils % (Manual) Seg Neutrophils # 8.6 H Seg Neutrophils # Man Lymphocytes # (Manual) Monocytes # (Manual) Eosinophils # (Manual) Nucleated RBC % Basophils # (Manual) APTT Heparin Anti-Xa Level ABG pH POC ABG pO2 ABG pO2 ABG HCO3 ABG O2 Saturation ABG Base Excess POC ABG pCO2 ABG Hemoglobin ABG Oxyhemoglobin ABG Glucose Oxyhemoglobin Sodium 146 H Potassium Chloride 108.6 H Carbon Dioxide BUN 30 H Creatinine 0.7 L Glucose 121 H POC Glucose 132 H Lactic Acid Calcium Phosphorus Magnesium AST ALT Lactate Dehydrogenase CK-MB (CK-2) C-Reactive Protein NT-Pro-B Natriuret Pep Total Protein Albumin Arterial Blood Glucose Urine WBC (Auto) 12/04/19 12/04/19 12/05/19 13:26 18:43 00:19 WBC RBC Hgb Hct MCHC RDW MCV MCH Lymph % (Auto) Patrick % (Auto) Patrick # Eos # Lymph # (Auto) Patrick # (Auto) Eos # (Auto) Seg Neutrophils % Seg Neuts % (Manual) Baso # (Auto) Lymphocytes % (Manual) Monocytes % (Manual) Eosinophils % (Manual) Basophils % (Manual) Seg Neutrophils # Seg Neutrophils # Man Lymphocytes # (Manual) Monocytes # (Manual) Eosinophils # (Manual) Nucleated RBC % Basophils # (Manual) APTT Heparin Anti-Xa Level ABG pH POC ABG pO2 ABG pO2 ABG HCO3 ABG O2 Saturation ABG Base Excess POC ABG pCO2 ABG Hemoglobin ABG Oxyhemoglobin ABG Glucose Oxyhemoglobin Sodium Potassium Chloride Carbon Dioxide BUN Creatinine Glucose POC Glucose 185 H 156 H 150 H Lactic Acid Calcium Phosphorus Magnesium AST ALT Lactate Dehydrogenase CK-MB (CK-2) C-Reactive Protein NT-Pro-B Natriuret Pep Total Protein Albumin Arterial Blood Glucose Urine WBC (Auto) 12/05/19 12/05/19 12/05/19 03:37 03:37 05:14 WBC 16.3 H RBC Hgb 11.4 L Hct MCHC RDW 15.6 H MCV MCH Lymph % (Auto) 9.9 L Patrick % (Auto) 9.7 H Patrick # 1.6 H Eos # Lymph # (Auto) Patrick # (Auto) Eos # (Auto) Seg Neutrophils % 78.0 H Seg Neuts % (Manual) Baso # (Auto) Lymphocytes % (Manual) Monocytes % (Manual) Eosinophils % (Manual) Basophils % (Manual) Seg Neutrophils # 12.7 H Seg Neutrophils # Man Lymphocytes # (Manual) Monocytes # (Manual) Eosinophils # (Manual) Nucleated RBC % Basophils # (Manual) APTT Heparin Anti-Xa Level ABG pH POC ABG pO2 ABG pO2 ABG HCO3 ABG O2 Saturation ABG Base Excess POC ABG pCO2 ABG Hemoglobin ABG Oxyhemoglobin ABG Glucose Oxyhemoglobin Sodium 146 H Potassium Chloride 107.2 H Carbon Dioxide BUN 27 H Creatinine 0.7 L Glucose 171 H POC Glucose 168 H Lactic Acid Calcium Phosphorus Magnesium AST ALT Lactate Dehydrogenase CK-MB (CK-2) C-Reactive Protein NT-Pro-B Natriuret Pep Total Protein Albumin Arterial Blood Glucose Urine WBC (Auto) 12/05/19 12/05/19 12/05/19 12:31 18:10 23:58 WBC RBC Hgb Hct MCHC RDW MCV MCH Lymph % (Auto) Patrick % (Auto) Patrick # Eos # Lymph # (Auto) Patrick # (Auto) Eos # (Auto) Seg Neutrophils % Seg Neuts % (Manual) Baso # (Auto) Lymphocytes % (Manual) Monocytes % (Manual) Eosinophils % (Manual) Basophils % (Manual) Seg Neutrophils # Seg Neutrophils # Man Lymphocytes # (Manual) Monocytes # (Manual) Eosinophils # (Manual) Nucleated RBC % Basophils # (Manual) APTT Heparin Anti-Xa Level ABG pH POC ABG pO2 ABG pO2 ABG HCO3 ABG O2 Saturation ABG Base Excess POC ABG pCO2 ABG Hemoglobin ABG Oxyhemoglobin ABG Glucose Oxyhemoglobin Sodium Potassium Chloride Carbon Dioxide BUN Creatinine Glucose POC Glucose 159 H 198 H 115 H Lactic Acid Calcium Phosphorus Magnesium AST ALT Lactate Dehydrogenase CK-MB (CK-2) C-Reactive Protein NT-Pro-B Natriuret Pep Total Protein Albumin Arterial Blood Glucose Urine WBC (Auto) 12/06/19 12/06/19 12/06/19 05:24 05:24 05:25 WBC 14.9 H RBC Hgb 10.8 L Hct 34.0 L MCHC RDW 15.6 H MCV MCH Lymph % (Auto) 10.7 L Patrick % (Auto) 8.3 H Patrick # 1.2 H Eos # Lymph # (Auto) Patrick # (Auto) Eos # (Auto) Seg Neutrophils % 78.7 H Seg Neuts % (Manual) Baso # (Auto) Lymphocytes % (Manual) Monocytes % (Manual) Eosinophils % (Manual) Basophils % (Manual) Seg Neutrophils # 11.7 H Seg Neutrophils # Man Lymphocytes # (Manual) Monocytes # (Manual) Eosinophils # (Manual) Nucleated RBC % Basophils # (Manual) APTT Heparin Anti-Xa Level ABG pH POC ABG pO2 ABG pO2 ABG HCO3 ABG O2 Saturation ABG Base Excess POC ABG pCO2 ABG Hemoglobin ABG Oxyhemoglobin ABG Glucose Oxyhemoglobin Sodium 148 H Potassium 5.1 H Chloride 107.6 H Carbon Dioxide BUN 27 H Creatinine 0.7 L Glucose 155 H POC Glucose 157 H Lactic Acid Calcium Phosphorus Magnesium AST ALT Lactate Dehydrogenase CK-MB (CK-2) C-Reactive Protein NT-Pro-B Natriuret Pep Total Protein Albumin Arterial Blood Glucose Urine WBC (Auto) 12/07/19 12/07/19 12/07/19 00:13 05:34 11:33 WBC RBC Hgb Hct MCHC RDW MCV MCH Lymph % (Auto) Patrick % (Auto) Patrick # Eos # Lymph # (Auto) Patrick # (Auto) Eos # (Auto) Seg Neutrophils % Seg Neuts % (Manual) Baso # (Auto) Lymphocytes % (Manual) Monocytes % (Manual) Eosinophils % (Manual) Basophils % (Manual) Seg Neutrophils # Seg Neutrophils # Man Lymphocytes # (Manual) Monocytes # (Manual) Eosinophils # (Manual) Nucleated RBC % Basophils # (Manual) APTT Heparin Anti-Xa Level ABG pH POC ABG pO2 ABG pO2 ABG HCO3 ABG O2 Saturation ABG Base Excess POC ABG pCO2 ABG Hemoglobin ABG Oxyhemoglobin ABG Glucose Oxyhemoglobin Sodium Potassium Chloride Carbon Dioxide BUN Creatinine Glucose POC Glucose 142 H 111 H 169 H Lactic Acid Calcium Phosphorus Magnesium AST ALT Lactate Dehydrogenase CK-MB (CK-2) C-Reactive Protein NT-Pro-B Natriuret Pep Total Protein Albumin Arterial Blood Glucose Urine WBC (Auto) 12/07/19 12/07/19 12/07/19 12:41 13:25 18:19 WBC 12.4 H RBC 3.53 L Hgb 10.2 L Hct 32.1 L MCHC RDW 15.3 H MCV MCH Lymph % (Auto) 10.6 L Patrick % (Auto) 7.8 H Patrick # 1.0 H Eos # Lymph # (Auto) Patrick # (Auto) Eos # (Auto) Seg Neutrophils % 77.6 H Seg Neuts % (Manual) Baso # (Auto) Lymphocytes % (Manual) Monocytes % (Manual) Eosinophils % (Manual) Basophils % (Manual) Seg Neutrophils # 9.6 H Seg Neutrophils # Man Lymphocytes # (Manual) Monocytes # (Manual) Eosinophils # (Manual) Nucleated RBC % Basophils # (Manual) APTT Heparin Anti-Xa Level ABG pH POC ABG pO2 ABG pO2 ABG HCO3 ABG O2 Saturation ABG Base Excess POC ABG pCO2 ABG Hemoglobin ABG Oxyhemoglobin ABG Glucose Oxyhemoglobin Sodium 149 H Potassium Chloride 108.4 H Carbon Dioxide BUN 26 H Creatinine 0.6 L Glucose 149 H POC Glucose 164 H Lactic Acid Calcium Phosphorus Magnesium 2.60 H AST 121 H ALT 145 H Lactate Dehydrogenase CK-MB (CK-2) C-Reactive Protein NT-Pro-B Natriuret Pep Total Protein Albumin 2.6 L Arterial Blood Glucose Urine WBC (Auto) 12/07/19 12/08/19 12/08/19 22:25 00:02 03:55 WBC 13.3 H RBC 3.40 L Hgb 9.7 L Hct 30.8 L MCHC 31 L RDW 15.5 H MCV MCH Lymph % (Auto) Patrick % (Auto) 8.1 H Patrick # 1.1 H Eos # Lymph # (Auto) Patrick # (Auto) Eos # (Auto) Seg Neutrophils % 73.0 H Seg Neuts % (Manual) Baso # (Auto) Lymphocytes % (Manual) Monocytes % (Manual) Eosinophils % (Manual) Basophils % (Manual) Seg Neutrophils # 9.7 H Seg Neutrophils # Man Lymphocytes # (Manual) Monocytes # (Manual) Eosinophils # (Manual) Nucleated RBC % Basophils # (Manual) APTT Heparin Anti-Xa Level 0.12 L ABG pH POC ABG pO2 ABG pO2 ABG HCO3 ABG O2 Saturation ABG Base Excess POC ABG pCO2 ABG Hemoglobin ABG Oxyhemoglobin ABG Glucose Oxyhemoglobin Sodium Potassium Chloride Carbon Dioxide BUN Creatinine Glucose POC Glucose 151 H Lactic Acid Calcium Phosphorus Magnesium AST ALT Lactate Dehydrogenase CK-MB (CK-2) C-Reactive Protein NT-Pro-B Natriuret Pep Total Protein Albumin Arterial Blood Glucose Urine WBC (Auto) 12/08/19 12/08/19 12/08/19 03:55 05:21 06:01 WBC RBC Hgb Hct MCHC RDW MCV MCH Lymph % (Auto) Patrick % (Auto) Patrick # Eos # Lymph # (Auto) Patrick # (Auto) Eos # (Auto) Seg Neutrophils % Seg Neuts % (Manual) Baso # (Auto) Lymphocytes % (Manual) Monocytes % (Manual) Eosinophils % (Manual) Basophils % (Manual) Seg Neutrophils # Seg Neutrophils # Man Lymphocytes # (Manual) Monocytes # (Manual) Eosinophils # (Manual) Nucleated RBC % Basophils # (Manual) APTT Heparin Anti-Xa Level 0.20 L ABG pH POC ABG pO2 ABG pO2 ABG HCO3 ABG O2 Saturation ABG Base Excess POC ABG pCO2 ABG Hemoglobin ABG Oxyhemoglobin ABG Glucose Oxyhemoglobin Sodium 149 H Potassium Chloride 108.0 H Carbon Dioxide BUN 28 H Creatinine 0.6 L Glucose 144 H POC Glucose 143 H Lactic Acid Calcium Phosphorus Magnesium AST 98 H ALT 145 H Lactate Dehydrogenase CK-MB (CK-2) C-Reactive Protein NT-Pro-B Natriuret Pep Total Protein 6.0 L Albumin 2.4 L Arterial Blood Glucose Urine WBC (Auto) 12/08/19 12/08/19 12/08/19 12:08 18:11 23:53 WBC RBC Hgb Hct MCHC RDW MCV MCH Lymph % (Auto) Patrick % (Auto) Patrick # Eos # Lymph # (Auto) Patrick # (Auto) Eos # (Auto) Seg Neutrophils % Seg Neuts % (Manual) Baso # (Auto) Lymphocytes % (Manual) Monocytes % (Manual) Eosinophils % (Manual) Basophils % (Manual) Seg Neutrophils # Seg Neutrophils # Man Lymphocytes # (Manual) Monocytes # (Manual) Eosinophils # (Manual) Nucleated RBC % Basophils # (Manual) APTT Heparin Anti-Xa Level ABG pH POC ABG pO2 ABG pO2 ABG HCO3 ABG O2 Saturation ABG Base Excess POC ABG pCO2 ABG Hemoglobin ABG Oxyhemoglobin ABG Glucose Oxyhemoglobin Sodium Potassium Chloride Carbon Dioxide BUN Creatinine Glucose POC Glucose 172 H 122 H 162 H Lactic Acid Calcium Phosphorus Magnesium AST ALT Lactate Dehydrogenase CK-MB (CK-2) C-Reactive Protein NT-Pro-B Natriuret Pep Total Protein Albumin Arterial Blood Glucose Urine WBC (Auto) 12/09/19 12/09/19 12/09/19 04:03 04:03 05:53 WBC RBC Hgb 9.1 L Hct 28.9 L MCHC RDW MCV MCH Lymph % (Auto) Patrick % (Auto) Patrick # Eos # Lymph # (Auto) Patrick # (Auto) Eos # (Auto) Seg Neutrophils % Seg Neuts % (Manual) Baso # (Auto) Lymphocytes % (Manual) Monocytes % (Manual) Eosinophils % (Manual) Basophils % (Manual) Seg Neutrophils # Seg Neutrophils # Man Lymphocytes # (Manual) Monocytes # (Manual) Eosinophils # (Manual) Nucleated RBC % Basophils # (Manual) APTT Heparin Anti-Xa Level 0.15 L ABG pH POC ABG pO2 ABG pO2 ABG HCO3 ABG O2 Saturation ABG Base Excess POC ABG pCO2 ABG Hemoglobin ABG Oxyhemoglobin ABG Glucose Oxyhemoglobin Sodium Potassium Chloride Carbon Dioxide BUN Creatinine Glucose POC Glucose 124 H Lactic Acid Calcium Phosphorus Magnesium AST ALT Lactate Dehydrogenase CK-MB (CK-2) C-Reactive Protein NT-Pro-B Natriuret Pep Total Protein Albumin Arterial Blood Glucose Urine WBC (Auto) 12/09/19 12/09/19 12/10/19 09:43 12:41 00:13 WBC RBC Hgb Hct MCHC RDW MCV MCH Lymph % (Auto) Patrick % (Auto) Patrick # Eos # Lymph # (Auto) Patrick # (Auto) Eos # (Auto) Seg Neutrophils % Seg Neuts % (Manual) Baso # (Auto) Lymphocytes % (Manual) Monocytes % (Manual) Eosinophils % (Manual) Basophils % (Manual) Seg Neutrophils # Seg Neutrophils # Man Lymphocytes # (Manual) Monocytes # (Manual) Eosinophils # (Manual) Nucleated RBC % Basophils # (Manual) APTT Heparin Anti-Xa Level ABG pH POC ABG pO2 ABG pO2 ABG HCO3 ABG O2 Saturation ABG Base Excess POC ABG pCO2 ABG Hemoglobin ABG Oxyhemoglobin ABG Glucose Oxyhemoglobin Sodium Potassium Chloride Carbon Dioxide BUN 25 H Creatinine 0.6 L Glucose 131 H POC Glucose 109 H 120 H Lactic Acid Calcium Phosphorus Magnesium AST ALT Lactate Dehydrogenase CK-MB (CK-2) C-Reactive Protein NT-Pro-B Natriuret Pep Total Protein Albumin Arterial Blood Glucose Urine WBC (Auto) 12/10/19 12/10/19 12/10/19 04:14 04:14 12:00 WBC 13.3 H RBC 3.34 L Hgb 9.6 L Hct 30.4 L MCHC RDW 15.4 H MCV MCH Lymph % (Auto) Patrick % (Auto) Patrick # Eos # Lymph # (Auto) Patrick # (Auto) Eos # (Auto) Seg Neutrophils % Seg Neuts % (Manual) 75.0 H Baso # (Auto) Lymphocytes % (Manual) 13.0 L Monocytes % (Manual) 8.0 H Eosinophils % (Manual) Basophils % (Manual) 2.0 H Seg Neutrophils # Seg Neutrophils # Man 10.0 H Lymphocytes # (Manual) Monocytes # (Manual) 1.1 H Eosinophils # (Manual) Nucleated RBC % Basophils # (Manual) 0.3 H APTT Heparin Anti-Xa Level ABG pH POC ABG pO2 ABG pO2 ABG HCO3 ABG O2 Saturation ABG Base Excess POC ABG pCO2 ABG Hemoglobin ABG Oxyhemoglobin ABG Glucose Oxyhemoglobin Sodium 147 H Potassium Chloride 108.3 H Carbon Dioxide BUN 21 H Creatinine 0.6 L Glucose 104 H POC Glucose 133 H Lactic Acid Calcium Phosphorus Magnesium AST ALT Lactate Dehydrogenase CK-MB (CK-2) C-Reactive Protein NT-Pro-B Natriuret Pep Total Protein Albumin Arterial Blood Glucose Urine WBC (Auto) 12/10/19 12/10/19 12/11/19 18:44 21:20 00:08 WBC 14.9 H RBC 3.36 L Hgb 9.6 L Hct 30.5 L MCHC RDW 15.4 H MCV MCH Lymph % (Auto) Patrick % (Auto) Patrick # Eos # Lymph # (Auto) Patrick # (Auto) Eos # (Auto) Seg Neutrophils % Seg Neuts % (Manual) Baso # (Auto) Lymphocytes % (Manual) Monocytes % (Manual) Eosinophils % (Manual) Basophils % (Manual) Seg Neutrophils # Seg Neutrophils # Man Lymphocytes # (Manual) Monocytes # (Manual) Eosinophils # (Manual) Nucleated RBC % Basophils # (Manual) APTT Heparin Anti-Xa Level ABG pH POC ABG pO2 ABG pO2 ABG HCO3 ABG O2 Saturation ABG Base Excess POC ABG pCO2 ABG Hemoglobin ABG Oxyhemoglobin ABG Glucose Oxyhemoglobin Sodium Potassium Chloride Carbon Dioxide BUN Creatinine Glucose POC Glucose 119 H 134 H Lactic Acid Calcium Phosphorus Magnesium AST ALT Lactate Dehydrogenase CK-MB (CK-2) C-Reactive Protein NT-Pro-B Natriuret Pep Total Protein Albumin Arterial Blood Glucose Urine WBC (Auto) 12/11/19 12/11/19 12/11/19 03:54 07:28 08:36 WBC 11.9 H RBC 3.25 L Hgb 9.6 L Hct 29.2 L MCHC RDW 15.7 H MCV MCH Lymph % (Auto) Patrick % (Auto) Patrick # Eos # Lymph # (Auto) Patrick # (Auto) Eos # (Auto) Seg Neutrophils % Seg Neuts % (Manual) Baso # (Auto) Lymphocytes % (Manual) Monocytes % (Manual) Eosinophils % (Manual) Basophils % (Manual) Seg Neutrophils # Seg Neutrophils # Man Lymphocytes # (Manual) Monocytes # (Manual) Eosinophils # (Manual) Nucleated RBC % Basophils # (Manual) APTT Heparin Anti-Xa Level 0.10 L 0.16 L ABG pH POC ABG pO2 ABG pO2 ABG HCO3 ABG O2 Saturation ABG Base Excess POC ABG pCO2 ABG Hemoglobin ABG Oxyhemoglobin ABG Glucose Oxyhemoglobin Sodium Potassium Chloride Carbon Dioxide BUN Creatinine Glucose POC Glucose Lactic Acid Calcium Phosphorus Magnesium AST ALT Lactate Dehydrogenase CK-MB (CK-2) C-Reactive Protein NT-Pro-B Natriuret Pep Total Protein Albumin Arterial Blood Glucose Urine WBC (Auto) 12/11/19 12/11/19 12/11/19 08:36 11:45 17:15 WBC RBC Hgb Hct MCHC RDW MCV MCH Lymph % (Auto) Patrick % (Auto) Patrick # Eos # Lymph # (Auto) Patrick # (Auto) Eos # (Auto) Seg Neutrophils % Seg Neuts % (Manual) Baso # (Auto) Lymphocytes % (Manual) Monocytes % (Manual) Eosinophils % (Manual) Basophils % (Manual) Seg Neutrophils # Seg Neutrophils # Man Lymphocytes # (Manual) Monocytes # (Manual) Eosinophils # (Manual) Nucleated RBC % Basophils # (Manual) APTT Heparin Anti-Xa Level ABG pH POC ABG pO2 ABG pO2 ABG HCO3 ABG O2 Saturation ABG Base Excess POC ABG pCO2 ABG Hemoglobin ABG Oxyhemoglobin ABG Glucose Oxyhemoglobin Sodium Potassium Chloride Carbon Dioxide BUN Creatinine 0.5 L Glucose 128 H POC Glucose 136 H 109 H Lactic Acid Calcium Phosphorus Magnesium AST ALT Lactate Dehydrogenase CK-MB (CK-2) C-Reactive Protein NT-Pro-B Natriuret Pep Total Protein Albumin Arterial Blood Glucose Urine WBC (Auto) 12/12/19 12/12/19 12/12/19 00:03 05:53 05:53 WBC RBC Hgb 8.8 L Hct 27.6 L MCHC RDW MCV MCH Lymph % (Auto) Patrick % (Auto) Patrick # Eos # Lymph # (Auto) Patrick # (Auto) Eos # (Auto) Seg Neutrophils % Seg Neuts % (Manual) Baso # (Auto) Lymphocytes % (Manual) Monocytes % (Manual) Eosinophils % (Manual) Basophils % (Manual) Seg Neutrophils # Seg Neutrophils # Man Lymphocytes # (Manual) Monocytes # (Manual) Eosinophils # (Manual) Nucleated RBC % Basophils # (Manual) APTT Heparin Anti-Xa Level 0.22 L ABG pH POC ABG pO2 ABG pO2 ABG HCO3 ABG O2 Saturation ABG Base Excess POC ABG pCO2 ABG Hemoglobin ABG Oxyhemoglobin ABG Glucose Oxyhemoglobin Sodium Potassium Chloride Carbon Dioxide BUN Creatinine Glucose POC Glucose 116 H Lactic Acid Calcium Phosphorus Magnesium AST ALT Lactate Dehydrogenase CK-MB (CK-2) C-Reactive Protein NT-Pro-B Natriuret Pep Total Protein Albumin Arterial Blood Glucose Urine WBC (Auto) 12/12/19 12/12/19 12/12/19 09:38 12:18 17:44 WBC RBC Hgb Hct MCHC RDW MCV MCH Lymph % (Auto) Patrick % (Auto) Patrick # Eos # Lymph # (Auto) Patrick # (Auto) Eos # (Auto) Seg Neutrophils % Seg Neuts % (Manual) Baso # (Auto) Lymphocytes % (Manual) Monocytes % (Manual) Eosinophils % (Manual) Basophils % (Manual) Seg Neutrophils # Seg Neutrophils # Man Lymphocytes # (Manual) Monocytes # (Manual) Eosinophils # (Manual) Nucleated RBC % Basophils # (Manual) APTT Heparin Anti-Xa Level ABG pH POC ABG pO2 ABG pO2 ABG HCO3 ABG O2 Saturation ABG Base Excess POC ABG pCO2 ABG Hemoglobin ABG Oxyhemoglobin ABG Glucose Oxyhemoglobin Sodium Potassium Chloride Carbon Dioxide BUN Creatinine Glucose POC Glucose 115 H 146 H 146 H Lactic Acid Calcium Phosphorus Magnesium AST ALT Lactate Dehydrogenase CK-MB (CK-2) C-Reactive Protein NT-Pro-B Natriuret Pep Total Protein Albumin Arterial Blood Glucose Urine WBC (Auto) 12/12/19 12/13/19 12/13/19 23:33 05:32 05:32 WBC 13.1 H RBC 3.27 L Hgb 9.5 L Hct 29.3 L MCHC RDW 15.6 H MCV MCH Lymph % (Auto) Patrick % (Auto) Patrick # Eos # Lymph # (Auto) Patrick # (Auto) Eos # (Auto) Seg Neutrophils % Seg Neuts % (Manual) 74.0 H Baso # (Auto) Lymphocytes % (Manual) 8.0 L Monocytes % (Manual) 9.0 H Eosinophils % (Manual) 5.0 H Basophils % (Manual) Seg Neutrophils # Seg Neutrophils # Man 9.7 H Lymphocytes # (Manual) 1.0 L Monocytes # (Manual) 1.2 H Eosinophils # (Manual) 0.7 H Nucleated RBC % Basophils # (Manual) APTT Heparin Anti-Xa Level 0.20 L ABG pH POC ABG pO2 ABG pO2 ABG HCO3 ABG O2 Saturation ABG Base Excess POC ABG pCO2 ABG Hemoglobin ABG Oxyhemoglobin ABG Glucose Oxyhemoglobin Sodium Potassium Chloride Carbon Dioxide BUN Creatinine Glucose POC Glucose 126 H Lactic Acid Calcium Phosphorus Magnesium AST ALT Lactate Dehydrogenase CK-MB (CK-2) C-Reactive Protein NT-Pro-B Natriuret Pep Total Protein Albumin Arterial Blood Glucose Urine WBC (Auto) 12/13/19 12/13/19 12/13/19 05:32 05:46 11:57 WBC RBC Hgb Hct MCHC RDW MCV MCH Lymph % (Auto) Patrick % (Auto) Patrick # Eos # Lymph # (Auto) Patrick # (Auto) Eos # (Auto) Seg Neutrophils % Seg Neuts % (Manual) Baso # (Auto) Lymphocytes % (Manual) Monocytes % (Manual) Eosinophils % (Manual) Basophils % (Manual) Seg Neutrophils # Seg Neutrophils # Man Lymphocytes # (Manual) Monocytes # (Manual) Eosinophils # (Manual) Nucleated RBC % Basophils # (Manual) APTT Heparin Anti-Xa Level ABG pH POC ABG pO2 ABG pO2 ABG HCO3 ABG O2 Saturation ABG Base Excess POC ABG pCO2 ABG Hemoglobin ABG Oxyhemoglobin ABG Glucose Oxyhemoglobin Sodium Potassium Chloride Carbon Dioxide 31 H BUN Creatinine 0.6 L Glucose 114 H POC Glucose 118 H 133 H Lactic Acid Calcium Phosphorus Magnesium AST ALT Lactate Dehydrogenase CK-MB (CK-2) C-Reactive Protein NT-Pro-B Natriuret Pep Total Protein Albumin Arterial Blood Glucose Urine WBC (Auto) 12/13/19 12/13/19 12/14/19 17:44 23:46 05:32 WBC RBC Hgb Hct MCHC RDW MCV MCH Lymph % (Auto) Patrick % (Auto) Patrick # Eos # Lymph # (Auto) Patrick # (Auto) Eos # (Auto) Seg Neutrophils % Seg Neuts % (Manual) Baso # (Auto) Lymphocytes % (Manual) Monocytes % (Manual) Eosinophils % (Manual) Basophils % (Manual) Seg Neutrophils # Seg Neutrophils # Man Lymphocytes # (Manual) Monocytes # (Manual) Eosinophils # (Manual) Nucleated RBC % Basophils # (Manual) APTT Heparin Anti-Xa Level ABG pH POC ABG pO2 ABG pO2 ABG HCO3 ABG O2 Saturation ABG Base Excess POC ABG pCO2 ABG Hemoglobin ABG Oxyhemoglobin ABG Glucose Oxyhemoglobin Sodium Potassium Chloride Carbon Dioxide BUN Creatinine Glucose POC Glucose 161 H 126 H 139 H Lactic Acid Calcium Phosphorus Magnesium AST ALT Lactate Dehydrogenase CK-MB (CK-2) C-Reactive Protein NT-Pro-B Natriuret Pep Total Protein Albumin Arterial Blood Glucose Urine WBC (Auto) 12/14/19 12/14/19 12/14/19 06:03 06:03 09:37 WBC RBC Hgb 9.6 L Hct 30.4 L MCHC RDW MCV MCH Lymph % (Auto) Patrick % (Auto) Patrick # Eos # Lymph # (Auto) Patrick # (Auto) Eos # (Auto) Seg Neutrophils % Seg Neuts % (Manual) Baso # (Auto) Lymphocytes % (Manual) Monocytes % (Manual) Eosinophils % (Manual) Basophils % (Manual) Seg Neutrophils # Seg Neutrophils # Man Lymphocytes # (Manual) Monocytes # (Manual) Eosinophils # (Manual) Nucleated RBC % Basophils # (Manual) APTT Heparin Anti-Xa Level 0.24 L ABG pH POC ABG pO2 ABG pO2 ABG HCO3 ABG O2 Saturation ABG Base Excess POC ABG pCO2 ABG Hemoglobin ABG Oxyhemoglobin ABG Glucose Oxyhemoglobin Sodium Potassium Chloride Carbon Dioxide BUN Creatinine 0.6 L Glucose 162 H POC Glucose Lactic Acid Calcium Phosphorus Magnesium AST 71 H ALT 118 H Lactate Dehydrogenase CK-MB (CK-2) C-Reactive Protein NT-Pro-B Natriuret Pep Total Protein 6.2 L Albumin 2.3 L Arterial Blood Glucose Urine WBC (Auto) 12/14/19 12/14/19 12/15/19 12:06 18:18 00:19 WBC RBC Hgb Hct MCHC RDW MCV MCH Lymph % (Auto) Patrick % (Auto) Patrick # Eos # Lymph # (Auto) Patrick # (Auto) Eos # (Auto) Seg Neutrophils % Seg Neuts % (Manual) Baso # (Auto) Lymphocytes % (Manual) Monocytes % (Manual) Eosinophils % (Manual) Basophils % (Manual) Seg Neutrophils # Seg Neutrophils # Man Lymphocytes # (Manual) Monocytes # (Manual) Eosinophils # (Manual) Nucleated RBC % Basophils # (Manual) APTT Heparin Anti-Xa Level ABG pH POC ABG pO2 ABG pO2 ABG HCO3 ABG O2 Saturation ABG Base Excess POC ABG pCO2 ABG Hemoglobin ABG Oxyhemoglobin ABG Glucose Oxyhemoglobin Sodium Potassium Chloride Carbon Dioxide BUN Creatinine Glucose POC Glucose 147 H 166 H 123 H Lactic Acid Calcium Phosphorus Magnesium AST ALT Lactate Dehydrogenase CK-MB (CK-2) C-Reactive Protein NT-Pro-B Natriuret Pep Total Protein Albumin Arterial Blood Glucose Urine WBC (Auto) 12/15/19 12/15/19 12/15/19 05:28 05:29 05:29 WBC 14.9 H RBC 3.19 L Hgb 9.1 L Hct 28.7 L MCHC RDW 16.0 H MCV MCH Lymph % (Auto) Patrick % (Auto) Patrick # Eos # Lymph # (Auto) Patrick # (Auto) Eos # (Auto) Seg Neutrophils % Seg Neuts % (Manual) Baso # (Auto) Lymphocytes % (Manual) Monocytes % (Manual) Eosinophils % (Manual) Basophils % (Manual) Seg Neutrophils # Seg Neutrophils # Man Lymphocytes # (Manual) Monocytes # (Manual) Eosinophils # (Manual) Nucleated RBC % Basophils # (Manual) APTT Heparin Anti-Xa Level 0.19 L ABG pH POC ABG pO2 ABG pO2 ABG HCO3 ABG O2 Saturation ABG Base Excess POC ABG pCO2 ABG Hemoglobin ABG Oxyhemoglobin ABG Glucose Oxyhemoglobin Sodium Potassium Chloride Carbon Dioxide BUN Creatinine 0.6 L Glucose 110 H POC Glucose Lactic Acid Calcium Phosphorus Magnesium AST ALT Lactate Dehydrogenase CK-MB (CK-2) C-Reactive Protein NT-Pro-B Natriuret Pep Total Protein Albumin Arterial Blood Glucose Urine WBC (Auto) 12/15/19 12/15/19 12/15/19 05:53 11:50 17:26 WBC RBC Hgb Hct MCHC RDW MCV MCH Lymph % (Auto) Patrick % (Auto) Patrick # Eos # Lymph # (Auto) Patrick # (Auto) Eos # (Auto) Seg Neutrophils % Seg Neuts % (Manual) Baso # (Auto) Lymphocytes % (Manual) Monocytes % (Manual) Eosinophils % (Manual) Basophils % (Manual) Seg Neutrophils # Seg Neutrophils # Man Lymphocytes # (Manual) Monocytes # (Manual) Eosinophils # (Manual) Nucleated RBC % Basophils # (Manual) APTT Heparin Anti-Xa Level ABG pH POC ABG pO2 ABG pO2 ABG HCO3 ABG O2 Saturation ABG Base Excess POC ABG pCO2 ABG Hemoglobin ABG Oxyhemoglobin ABG Glucose Oxyhemoglobin Sodium Potassium Chloride Carbon Dioxide BUN Creatinine Glucose POC Glucose 119 H 132 H 128 H Lactic Acid Calcium Phosphorus Magnesium AST ALT Lactate Dehydrogenase CK-MB (CK-2) C-Reactive Protein NT-Pro-B Natriuret Pep Total Protein Albumin Arterial Blood Glucose Urine WBC (Auto) 12/15/19 12/16/19 12/16/19 23:11 05:30 05:46 WBC RBC Hgb 8.8 L Hct 27.9 L MCHC RDW MCV MCH Lymph % (Auto) Patrick % (Auto) Patrick # Eos # Lymph # (Auto) Patrick # (Auto) Eos # (Auto) Seg Neutrophils % Seg Neuts % (Manual) Baso # (Auto) Lymphocytes % (Manual) Monocytes % (Manual) Eosinophils % (Manual) Basophils % (Manual) Seg Neutrophils # Seg Neutrophils # Man Lymphocytes # (Manual) Monocytes # (Manual) Eosinophils # (Manual) Nucleated RBC % Basophils # (Manual) APTT Heparin Anti-Xa Level ABG pH POC ABG pO2 ABG pO2 ABG HCO3 ABG O2 Saturation ABG Base Excess POC ABG pCO2 ABG Hemoglobin ABG Oxyhemoglobin ABG Glucose Oxyhemoglobin Sodium Potassium Chloride Carbon Dioxide BUN Creatinine Glucose POC Glucose 150 H 134 H Lactic Acid Calcium Phosphorus Magnesium AST ALT Lactate Dehydrogenase CK-MB (CK-2) C-Reactive Protein NT-Pro-B Natriuret Pep Total Protein Albumin Arterial Blood Glucose Urine WBC (Auto) 12/16/19 12/16/19 12/16/19 05:46 05:46 11:44 WBC RBC Hgb Hct MCHC RDW MCV MCH Lymph % (Auto) Patrick % (Auto) Patrick # Eos # Lymph # (Auto) Patrick # (Auto) Eos # (Auto) Seg Neutrophils % Seg Neuts % (Manual) Baso # (Auto) Lymphocytes % (Manual) Monocytes % (Manual) Eosinophils % (Manual) Basophils % (Manual) Seg Neutrophils # Seg Neutrophils # Man Lymphocytes # (Manual) Monocytes # (Manual) Eosinophils # (Manual) Nucleated RBC % Basophils # (Manual) APTT Heparin Anti-Xa Level 0.20 L ABG pH POC ABG pO2 ABG pO2 ABG HCO3 ABG O2 Saturation ABG Base Excess POC ABG pCO2 ABG Hemoglobin ABG Oxyhemoglobin ABG Glucose Oxyhemoglobin Sodium Potassium Chloride Carbon Dioxide 31 H BUN Creatinine 0.5 L Glucose 147 H POC Glucose 164 H Lactic Acid Calcium Phosphorus Magnesium AST ALT Lactate Dehydrogenase CK-MB (CK-2) C-Reactive Protein NT-Pro-B Natriuret Pep Total Protein Albumin Arterial Blood Glucose Urine WBC (Auto) 12/16/19 12/16/19 12/17/19 17:17 23:49 05:30 WBC 13.9 H RBC 3.27 L Hgb 9.4 L Hct 29.2 L MCHC RDW 16.0 H MCV MCH Lymph % (Auto) Patrick % (Auto) 8.8 H Patrick # Eos # Lymph # (Auto) Patrick # (Auto) 1.2 H Eos # (Auto) 0.5 H Seg Neutrophils % 70.5 H Seg Neuts % (Manual) Baso # (Auto) 0.2 H Lymphocytes % (Manual) Monocytes % (Manual) Eosinophils % (Manual) Basophils % (Manual) Seg Neutrophils # 9.8 H Seg Neutrophils # Man Lymphocytes # (Manual) Monocytes # (Manual) Eosinophils # (Manual) Nucleated RBC % Basophils # (Manual) APTT Heparin Anti-Xa Level ABG pH POC ABG pO2 ABG pO2 ABG HCO3 ABG O2 Saturation ABG Base Excess POC ABG pCO2 ABG Hemoglobin ABG Oxyhemoglobin ABG Glucose Oxyhemoglobin Sodium Potassium Chloride Carbon Dioxide BUN Creatinine Glucose POC Glucose 162 H 144 H Lactic Acid Calcium Phosphorus Magnesium AST ALT Lactate Dehydrogenase CK-MB (CK-2) C-Reactive Protein NT-Pro-B Natriuret Pep Total Protein Albumin Arterial Blood Glucose Urine WBC (Auto) 12/17/19 12/17/19 12/17/19 05:30 06:06 11:50 WBC RBC Hgb Hct MCHC RDW MCV MCH Lymph % (Auto) Patrick % (Auto) Patrick # Eos # Lymph # (Auto) Patrick # (Auto) Eos # (Auto) Seg Neutrophils % Seg Neuts % (Manual) Baso # (Auto) Lymphocytes % (Manual) Monocytes % (Manual) Eosinophils % (Manual) Basophils % (Manual) Seg Neutrophils # Seg Neutrophils # Man Lymphocytes # (Manual) Monocytes # (Manual) Eosinophils # (Manual) Nucleated RBC % Basophils # (Manual) APTT Heparin Anti-Xa Level ABG pH POC ABG pO2 ABG pO2 ABG HCO3 ABG O2 Saturation ABG Base Excess POC ABG pCO2 ABG Hemoglobin ABG Oxyhemoglobin ABG Glucose Oxyhemoglobin Sodium Potassium Chloride 97.4 L Carbon Dioxide 32 H BUN Creatinine 0.5 L Glucose 135 H POC Glucose 151 H 140 H Lactic Acid Calcium Phosphorus Magnesium AST ALT Lactate Dehydrogenase CK-MB (CK-2) C-Reactive Protein NT-Pro-B Natriuret Pep Total Protein Albumin Arterial Blood Glucose Urine WBC (Auto) 12/17/19 12/17/19 12/18/19 17:50 23:46 05:17 WBC RBC Hgb 8.8 L Hct 28.0 L MCHC RDW MCV MCH Lymph % (Auto) Patrick % (Auto) Patrick # Eos # Lymph # (Auto) Patrick # (Auto) Eos # (Auto) Seg Neutrophils % Seg Neuts % (Manual) Baso # (Auto) Lymphocytes % (Manual) Monocytes % (Manual) Eosinophils % (Manual) Basophils % (Manual) Seg Neutrophils # Seg Neutrophils # Man Lymphocytes # (Manual) Monocytes # (Manual) Eosinophils # (Manual) Nucleated RBC % Basophils # (Manual) APTT Heparin Anti-Xa Level ABG pH POC ABG pO2 ABG pO2 ABG HCO3 ABG O2 Saturation ABG Base Excess POC ABG pCO2 ABG Hemoglobin ABG Oxyhemoglobin ABG Glucose Oxyhemoglobin Sodium Potassium Chloride Carbon Dioxide BUN Creatinine Glucose POC Glucose 158 H 150 H Lactic Acid Calcium Phosphorus Magnesium AST ALT Lactate Dehydrogenase CK-MB (CK-2) C-Reactive Protein NT-Pro-B Natriuret Pep Total Protein Albumin Arterial Blood Glucose Urine WBC (Auto) 12/18/19 12/18/19 12/18/19 05:17 05:49 11:12 WBC RBC Hgb Hct MCHC RDW MCV MCH Lymph % (Auto) Patrick % (Auto) Patrick # Eos # Lymph # (Auto) Patrick # (Auto) Eos # (Auto) Seg Neutrophils % Seg Neuts % (Manual) Baso # (Auto) Lymphocytes % (Manual) Monocytes % (Manual) Eosinophils % (Manual) Basophils % (Manual) Seg Neutrophils # Seg Neutrophils # Man Lymphocytes # (Manual) Monocytes # (Manual) Eosinophils # (Manual) Nucleated RBC % Basophils # (Manual) APTT Heparin Anti-Xa Level 0.16 L ABG pH POC ABG pO2 ABG pO2 ABG HCO3 ABG O2 Saturation ABG Base Excess POC ABG pCO2 ABG Hemoglobin ABG Oxyhemoglobin ABG Glucose Oxyhemoglobin Sodium Potassium Chloride Carbon Dioxide BUN Creatinine Glucose POC Glucose 127 H 191 H Lactic Acid Calcium Phosphorus Magnesium AST ALT Lactate Dehydrogenase CK-MB (CK-2) C-Reactive Protein NT-Pro-B Natriuret Pep Total Protein Albumin Arterial Blood Glucose Urine WBC (Auto) 12/18/19 12/18/19 12/19/19 17:03 20:16 00:08 WBC RBC Hgb Hct MCHC RDW MCV MCH Lymph % (Auto) Patrick % (Auto) Patrick # Eos # Lymph # (Auto) Patrick # (Auto) Eos # (Auto) Seg Neutrophils % Seg Neuts % (Manual) Baso # (Auto) Lymphocytes % (Manual) Monocytes % (Manual) Eosinophils % (Manual) Basophils % (Manual) Seg Neutrophils # Seg Neutrophils # Man Lymphocytes # (Manual) Monocytes # (Manual) Eosinophils # (Manual) Nucleated RBC % Basophils # (Manual) APTT Heparin Anti-Xa Level ABG pH POC ABG pO2 ABG pO2 ABG HCO3 ABG O2 Saturation ABG Base Excess POC ABG pCO2 ABG Hemoglobin ABG Oxyhemoglobin ABG Glucose Oxyhemoglobin Sodium Potassium Chloride Carbon Dioxide BUN Creatinine Glucose POC Glucose 133 H 128 H 129 H Lactic Acid Calcium Phosphorus Magnesium AST ALT Lactate Dehydrogenase CK-MB (CK-2) C-Reactive Protein NT-Pro-B Natriuret Pep Total Protein Albumin Arterial Blood Glucose Urine WBC (Auto) 12/19/19 12/19/19 12/19/19 04:45 04:45 05:35 WBC RBC Hgb Hct MCHC RDW MCV MCH Lymph % (Auto) Patrick % (Auto) Patrick # Eos # Lymph # (Auto) Patrick # (Auto) Eos # (Auto) Seg Neutrophils % Seg Neuts % (Manual) Baso # (Auto) Lymphocytes % (Manual) Monocytes % (Manual) Eosinophils % (Manual) Basophils % (Manual) Seg Neutrophils # Seg Neutrophils # Man Lymphocytes # (Manual) Monocytes # (Manual) Eosinophils # (Manual) Nucleated RBC % Basophils # (Manual) APTT Heparin Anti-Xa Level 0.17 L ABG pH POC ABG pO2 ABG pO2 ABG HCO3 ABG O2 Saturation ABG Base Excess POC ABG pCO2 ABG Hemoglobin ABG Oxyhemoglobin ABG Glucose Oxyhemoglobin Sodium Potassium Chloride Carbon Dioxide BUN Creatinine Glucose POC Glucose 120 H Lactic Acid Calcium Phosphorus Magnesium AST ALT Lactate Dehydrogenase 228 H CK-MB (CK-2) C-Reactive Protein NT-Pro-B Natriuret Pep Total Protein Albumin Arterial Blood Glucose Urine WBC (Auto) 12/19/19 12/19/19 12/19/19 09:20 11:32 11:32 WBC 14.6 H RBC 3.08 L Hgb 9.0 L Hct 26.8 L MCHC RDW 15.9 H MCV MCH Lymph % (Auto) Patrick % (Auto) Patrick # Eos # Lymph # (Auto) Patrick # (Auto) Eos # (Auto) Seg Neutrophils % Seg Neuts % (Manual) 82.0 H Baso # (Auto) Lymphocytes % (Manual) 10.0 L Monocytes % (Manual) Eosinophils % (Manual) Basophils % (Manual) Seg Neutrophils # Seg Neutrophils # Man 12.0 H Lymphocytes # (Manual) Monocytes # (Manual) 0.9 H Eosinophils # (Manual) Nucleated RBC % 1.0 H Basophils # (Manual) APTT Heparin Anti-Xa Level ABG pH 7.451 H POC ABG pO2 ABG pO2 62.6 L ABG HCO3 33.2 H ABG O2 Saturation 93.8 L ABG Base Excess 8.3 H POC ABG pCO2 ABG Hemoglobin 8.3 L ABG Oxyhemoglobin ABG Glucose Oxyhemoglobin 91.9 L Sodium Potassium Chloride 95.0 L Carbon Dioxide 33 H BUN 22 H Creatinine 0.6 L Glucose 150 H POC Glucose Lactic Acid Calcium Phosphorus Magnesium AST ALT Lactate Dehydrogenase CK-MB (CK-2) C-Reactive Protein NT-Pro-B Natriuret Pep Total Protein 6.2 L Albumin 2.4 L Arterial Blood Glucose Urine WBC (Auto) 12/19/19 12/19/19 12/20/19 11:56 18:17 00:09 WBC RBC Hgb Hct MCHC RDW MCV MCH Lymph % (Auto) Patrick % (Auto) Patrick # Eos # Lymph # (Auto) Patrick # (Auto) Eos # (Auto) Seg Neutrophils % Seg Neuts % (Manual) Baso # (Auto) Lymphocytes % (Manual) Monocytes % (Manual) Eosinophils % (Manual) Basophils % (Manual) Seg Neutrophils # Seg Neutrophils # Man Lymphocytes # (Manual) Monocytes # (Manual) Eosinophils # (Manual) Nucleated RBC % Basophils # (Manual) APTT Heparin Anti-Xa Level ABG pH POC ABG pO2 ABG pO2 ABG HCO3 ABG O2 Saturation ABG Base Excess POC ABG pCO2 ABG Hemoglobin ABG Oxyhemoglobin ABG Glucose Oxyhemoglobin Sodium Potassium Chloride Carbon Dioxide BUN Creatinine Glucose POC Glucose 156 H 156 H 155 H Lactic Acid Calcium Phosphorus Magnesium AST ALT Lactate Dehydrogenase CK-MB (CK-2) C-Reactive Protein NT-Pro-B Natriuret Pep Total Protein Albumin Arterial Blood Glucose Urine WBC (Auto) 12/20/19 12/20/19 12/20/19 05:26 06:02 18:17 WBC RBC Hgb Hct MCHC RDW MCV MCH Lymph % (Auto) Patrick % (Auto) Patrick # Eos # Lymph # (Auto) Patrick # (Auto) Eos # (Auto) Seg Neutrophils % Seg Neuts % (Manual) Baso # (Auto) Lymphocytes % (Manual) Monocytes % (Manual) Eosinophils % (Manual) Basophils % (Manual) Seg Neutrophils # Seg Neutrophils # Man Lymphocytes # (Manual) Monocytes # (Manual) Eosinophils # (Manual) Nucleated RBC % Basophils # (Manual) APTT Heparin Anti-Xa Level 0.19 L ABG pH POC ABG pO2 ABG pO2 ABG HCO3 ABG O2 Saturation ABG Base Excess POC ABG pCO2 ABG Hemoglobin ABG Oxyhemoglobin ABG Glucose Oxyhemoglobin Sodium Potassium Chloride Carbon Dioxide BUN Creatinine Glucose POC Glucose 137 H 128 H Lactic Acid Calcium Phosphorus Magnesium AST ALT Lactate Dehydrogenase CK-MB (CK-2) C-Reactive Protein NT-Pro-B Natriuret Pep Total Protein Albumin Arterial Blood Glucose Urine WBC (Auto) 12/20/19 12/21/19 12/21/19 23:34 05:31 05:31 WBC 12.7 H RBC 3.09 L Hgb 8.9 L Hct 27.4 L MCHC RDW 15.8 H MCV MCH Lymph % (Auto) 12.1 L Patrick % (Auto) 7.8 H Patrick # Eos # Lymph # (Auto) Patrick # (Auto) 1.0 H Eos # (Auto) Seg Neutrophils % 77.1 H Seg Neuts % (Manual) Baso # (Auto) Lymphocytes % (Manual) Monocytes % (Manual) Eosinophils % (Manual) Basophils % (Manual) Seg Neutrophils # 9.8 H Seg Neutrophils # Man Lymphocytes # (Manual) Monocytes # (Manual) Eosinophils # (Manual) Nucleated RBC % Basophils # (Manual) APTT Heparin Anti-Xa Level ABG pH POC ABG pO2 ABG pO2 ABG HCO3 ABG O2 Saturation ABG Base Excess POC ABG pCO2 ABG Hemoglobin ABG Oxyhemoglobin ABG Glucose Oxyhemoglobin Sodium Potassium Chloride 96.9 L Carbon Dioxide 37 H BUN 27 H Creatinine 0.7 L Glucose 140 H POC Glucose 145 H Lactic Acid Calcium Phosphorus Magnesium AST ALT Lactate Dehydrogenase CK-MB (CK-2) C-Reactive Protein NT-Pro-B Natriuret Pep Total Protein Albumin Arterial Blood Glucose Urine WBC (Auto) 12/21/19 12/21/19 12/21/19 05:38 10:13 11:51 WBC RBC Hgb Hct MCHC RDW MCV MCH Lymph % (Auto) Patrick % (Auto) Patrick # Eos # Lymph # (Auto) Patrick # (Auto) Eos # (Auto) Seg Neutrophils % Seg Neuts % (Manual) Baso # (Auto) Lymphocytes % (Manual) Monocytes % (Manual) Eosinophils % (Manual) Basophils % (Manual) Seg Neutrophils # Seg Neutrophils # Man Lymphocytes # (Manual) Monocytes # (Manual) Eosinophils # (Manual) Nucleated RBC % Basophils # (Manual) APTT 23.9 L Heparin Anti-Xa Level < 0.10 L ABG pH POC ABG pO2 ABG pO2 ABG HCO3 ABG O2 Saturation ABG Base Excess POC ABG pCO2 ABG Hemoglobin ABG Oxyhemoglobin ABG Glucose Oxyhemoglobin Sodium Potassium Chloride Carbon Dioxide BUN Creatinine Glucose POC Glucose 151 H 145 H Lactic Acid Calcium Phosphorus Magnesium AST ALT Lactate Dehydrogenase CK-MB (CK-2) C-Reactive Protein NT-Pro-B Natriuret Pep Total Protein Albumin Arterial Blood Glucose Urine WBC (Auto) 12/21/19 12/22/19 12/22/19 17:16 00:01 01:33 WBC RBC Hgb Hct MCHC RDW MCV MCH Lymph % (Auto) Patrick % (Auto) Patrick # Eos # Lymph # (Auto) Patrick # (Auto) Eos # (Auto) Seg Neutrophils % Seg Neuts % (Manual) Baso # (Auto) Lymphocytes % (Manual) Monocytes % (Manual) Eosinophils % (Manual) Basophils % (Manual) Seg Neutrophils # Seg Neutrophils # Man Lymphocytes # (Manual) Monocytes # (Manual) Eosinophils # (Manual) Nucleated RBC % Basophils # (Manual) APTT Heparin Anti-Xa Level 0.10 L ABG pH POC ABG pO2 ABG pO2 ABG HCO3 ABG O2 Saturation ABG Base Excess POC ABG pCO2 ABG Hemoglobin ABG Oxyhemoglobin ABG Glucose Oxyhemoglobin Sodium Potassium Chloride Carbon Dioxide BUN Creatinine Glucose POC Glucose 167 H 179 H Lactic Acid Calcium Phosphorus Magnesium AST ALT Lactate Dehydrogenase CK-MB (CK-2) C-Reactive Protein NT-Pro-B Natriuret Pep Total Protein Albumin Arterial Blood Glucose Urine WBC (Auto) 12/22/19 12/22/19 12/22/19 03:22 05:10 05:10 WBC 13.8 H RBC 3.20 L Hgb 8.9 L Hct 28.1 L MCHC RDW 15.9 H MCV MCH Lymph % (Auto) Patrick % (Auto) Patrick # Eos # Lymph # (Auto) Patrick # (Auto) Eos # (Auto) Seg Neutrophils % Seg Neuts % (Manual) Baso # (Auto) Lymphocytes % (Manual) Monocytes % (Manual) Eosinophils % (Manual) Basophils % (Manual) Seg Neutrophils # Seg Neutrophils # Man Lymphocytes # (Manual) Monocytes # (Manual) Eosinophils # (Manual) Nucleated RBC % Basophils # (Manual) APTT Heparin Anti-Xa Level ABG pH POC ABG pO2 52.3 L ABG pO2 ABG HCO3 ABG O2 Saturation ABG Base Excess POC ABG pCO2 52.9 H ABG Hemoglobin 10.7 L ABG Oxyhemoglobin 84 L ABG Glucose Oxyhemoglobin Sodium Potassium Chloride 96.6 L Carbon Dioxide BUN 25 H Creatinine 0.7 L Glucose 129 H POC Glucose Lactic Acid Calcium Phosphorus Magnesium AST ALT Lactate Dehydrogenase CK-MB (CK-2) C-Reactive Protein NT-Pro-B Natriuret Pep Total Protein Albumin Arterial Blood Glucose Urine WBC (Auto) 12/22/19 12/22/19 12/22/19 05:18 12:32 12:43 WBC RBC Hgb Hct MCHC RDW MCV MCH Lymph % (Auto) Patrick % (Auto) Patrick # Eos # Lymph # (Auto) Patrick # (Auto) Eos # (Auto) Seg Neutrophils % Seg Neuts % (Manual) Baso # (Auto) Lymphocytes % (Manual) Monocytes % (Manual) Eosinophils % (Manual) Basophils % (Manual) Seg Neutrophils # Seg Neutrophils # Man Lymphocytes # (Manual) Monocytes # (Manual) Eosinophils # (Manual) Nucleated RBC % Basophils # (Manual) APTT Heparin Anti-Xa Level 0.18 L ABG pH POC ABG pO2 ABG pO2 ABG HCO3 ABG O2 Saturation ABG Base Excess POC ABG pCO2 ABG Hemoglobin ABG Oxyhemoglobin ABG Glucose Oxyhemoglobin Sodium Potassium Chloride Carbon Dioxide BUN Creatinine Glucose POC Glucose 131 H 208 H Lactic Acid Calcium Phosphorus Magnesium AST ALT Lactate Dehydrogenase CK-MB (CK-2) C-Reactive Protein NT-Pro-B Natriuret Pep Total Protein Albumin Arterial Blood Glucose Urine WBC (Auto) 12/22/19 12/22/19 12/23/19 17:44 23:20 03:51 WBC 15.2 H RBC 3.43 L Hgb 9.6 L Hct 30.3 L MCHC RDW 15.9 H MCV MCH Lymph % (Auto) Patrick % (Auto) Patrick # Eos # Lymph # (Auto) Patrick # (Auto) Eos # (Auto) Seg Neutrophils % Seg Neuts % (Manual) Baso # (Auto) Lymphocytes % (Manual) Monocytes % (Manual) Eosinophils % (Manual) Basophils % (Manual) Seg Neutrophils # Seg Neutrophils # Man Lymphocytes # (Manual) Monocytes # (Manual) Eosinophils # (Manual) Nucleated RBC % Basophils # (Manual) APTT Heparin Anti-Xa Level ABG pH POC ABG pO2 ABG pO2 ABG HCO3 ABG O2 Saturation ABG Base Excess POC ABG pCO2 ABG Hemoglobin ABG Oxyhemoglobin ABG Glucose Oxyhemoglobin Sodium Potassium Chloride Carbon Dioxide BUN Creatinine Glucose POC Glucose 209 H 119 H Lactic Acid Calcium Phosphorus Magnesium AST ALT Lactate Dehydrogenase CK-MB (CK-2) C-Reactive Protein NT-Pro-B Natriuret Pep Total Protein Albumin Arterial Blood Glucose Urine WBC (Auto) 12/23/19 12/23/19 12/23/19 03:51 05:31 12:09 WBC RBC Hgb Hct MCHC RDW MCV MCH Lymph % (Auto) Patrick % (Auto) Patrick # Eos # Lymph # (Auto) Patrick # (Auto) Eos # (Auto) Seg Neutrophils % Seg Neuts % (Manual) Baso # (Auto) Lymphocytes % (Manual) Monocytes % (Manual) Eosinophils % (Manual) Basophils % (Manual) Seg Neutrophils # Seg Neutrophils # Man Lymphocytes # (Manual) Monocytes # (Manual) Eosinophils # (Manual) Nucleated RBC % Basophils # (Manual) APTT Heparin Anti-Xa Level ABG pH POC ABG pO2 ABG pO2 ABG HCO3 ABG O2 Saturation ABG Base Excess POC ABG pCO2 ABG Hemoglobin ABG Oxyhemoglobin ABG Glucose Oxyhemoglobin Sodium Potassium Chloride 97.2 L Carbon Dioxide 31 H BUN 23 H Creatinine 0.6 L Glucose 153 H POC Glucose 149 H 144 H Lactic Acid Calcium Phosphorus Magnesium AST ALT Lactate Dehydrogenase CK-MB (CK-2) C-Reactive Protein NT-Pro-B Natriuret Pep Total Protein Albumin Arterial Blood Glucose Urine WBC (Auto) 12/23/19 12/23/19 12/23/19 15:30 17:49 23:31 WBC RBC Hgb Hct MCHC RDW MCV MCH Lymph % (Auto) Patrick % (Auto) Patrick # Eos # Lymph # (Auto) Patrick # (Auto) Eos # (Auto) Seg Neutrophils % Seg Neuts % (Manual) Baso # (Auto) Lymphocytes % (Manual) Monocytes % (Manual) Eosinophils % (Manual) Basophils % (Manual) Seg Neutrophils # Seg Neutrophils # Man Lymphocytes # (Manual) Monocytes # (Manual) Eosinophils # (Manual) Nucleated RBC % Basophils # (Manual) APTT Heparin Anti-Xa Level 0.21 L ABG pH POC ABG pO2 ABG pO2 ABG HCO3 ABG O2 Saturation ABG Base Excess POC ABG pCO2 ABG Hemoglobin ABG Oxyhemoglobin ABG Glucose Oxyhemoglobin Sodium Potassium Chloride Carbon Dioxide BUN Creatinine Glucose POC Glucose 192 H 151 H Lactic Acid Calcium Phosphorus Magnesium AST ALT Lactate Dehydrogenase CK-MB (CK-2) C-Reactive Protein NT-Pro-B Natriuret Pep Total Protein Albumin Arterial Blood Glucose Urine WBC (Auto) 12/24/19 12/24/19 12/24/19 05:34 12:13 16:50 WBC RBC Hgb Hct MCHC RDW MCV MCH Lymph % (Auto) Patrick % (Auto) Patrick # Eos # Lymph # (Auto) Patrick # (Auto) Eos # (Auto) Seg Neutrophils % Seg Neuts % (Manual) Baso # (Auto) Lymphocytes % (Manual) Monocytes % (Manual) Eosinophils % (Manual) Basophils % (Manual) Seg Neutrophils # Seg Neutrophils # Man Lymphocytes # (Manual) Monocytes # (Manual) Eosinophils # (Manual) Nucleated RBC % Basophils # (Manual) APTT Heparin Anti-Xa Level 0.16 L ABG pH POC ABG pO2 ABG pO2 ABG HCO3 ABG O2 Saturation ABG Base Excess POC ABG pCO2 ABG Hemoglobin ABG Oxyhemoglobin ABG Glucose Oxyhemoglobin Sodium Potassium Chloride Carbon Dioxide BUN Creatinine Glucose POC Glucose 145 H 124 H Lactic Acid Calcium Phosphorus Magnesium AST ALT Lactate Dehydrogenase CK-MB (CK-2) C-Reactive Protein NT-Pro-B Natriuret Pep Total Protein Albumin Arterial Blood Glucose Urine WBC (Auto) 12/24/19 12/25/19 12/25/19 17:53 00:14 04:18 WBC 12.9 H RBC 3.30 L Hgb 9.1 L Hct 28.8 L MCHC RDW 16.4 H MCV MCH Lymph % (Auto) Patrick % (Auto) 7.8 H Patrick # Eos # Lymph # (Auto) Patrick # (Auto) 1.0 H Eos # (Auto) Seg Neutrophils % 75.5 H Seg Neuts % (Manual) Baso # (Auto) Lymphocytes % (Manual) Monocytes % (Manual) Eosinophils % (Manual) Basophils % (Manual) Seg Neutrophils # 9.7 H Seg Neutrophils # Man Lymphocytes # (Manual) Monocytes # (Manual) Eosinophils # (Manual) Nucleated RBC % Basophils # (Manual) APTT Heparin Anti-Xa Level ABG pH POC ABG pO2 ABG pO2 ABG HCO3 ABG O2 Saturation ABG Base Excess POC ABG pCO2 ABG Hemoglobin ABG Oxyhemoglobin ABG Glucose Oxyhemoglobin Sodium Potassium Chloride Carbon Dioxide BUN Creatinine Glucose POC Glucose 164 H 148 H Lactic Acid Calcium Phosphorus Magnesium AST ALT Lactate Dehydrogenase CK-MB (CK-2) C-Reactive Protein NT-Pro-B Natriuret Pep Total Protein Albumin Arterial Blood Glucose Urine WBC (Auto) 12/25/19 12/25/19 12/25/19 04:18 05:38 11:44 WBC RBC Hgb Hct MCHC RDW MCV MCH Lymph % (Auto) Patrick % (Auto) Patrick # Eos # Lymph # (Auto) Patrick # (Auto) Eos # (Auto) Seg Neutrophils % Seg Neuts % (Manual) Baso # (Auto) Lymphocytes % (Manual) Monocytes % (Manual) Eosinophils % (Manual) Basophils % (Manual) Seg Neutrophils # Seg Neutrophils # Man Lymphocytes # (Manual) Monocytes # (Manual) Eosinophils # (Manual) Nucleated RBC % Basophils # (Manual) APTT Heparin Anti-Xa Level ABG pH POC ABG pO2 ABG pO2 ABG HCO3 ABG O2 Saturation ABG Base Excess POC ABG pCO2 ABG Hemoglobin ABG Oxyhemoglobin ABG Glucose Oxyhemoglobin Sodium Potassium Chloride Carbon Dioxide 33 H BUN 27 H Creatinine 0.6 L Glucose 132 H POC Glucose 152 H 166 H Lactic Acid Calcium Phosphorus Magnesium AST ALT Lactate Dehydrogenase CK-MB (CK-2) C-Reactive Protein NT-Pro-B Natriuret Pep Total Protein Albumin Arterial Blood Glucose Urine WBC (Auto) 12/25/19 12/26/19 12/26/19 18:29 00:17 00:18 WBC RBC Hgb Hct MCHC RDW MCV MCH Lymph % (Auto) Patrick % (Auto) Patrick # Eos # Lymph # (Auto) Patrick # (Auto) Eos # (Auto) Seg Neutrophils % Seg Neuts % (Manual) Baso # (Auto) Lymphocytes % (Manual) Monocytes % (Manual) Eosinophils % (Manual) Basophils % (Manual) Seg Neutrophils # Seg Neutrophils # Man Lymphocytes # (Manual) Monocytes # (Manual) Eosinophils # (Manual) Nucleated RBC % Basophils # (Manual) APTT Heparin Anti-Xa Level ABG pH POC ABG pO2 ABG pO2 ABG HCO3 ABG O2 Saturation ABG Base Excess POC ABG pCO2 ABG Hemoglobin ABG Oxyhemoglobin ABG Glucose Oxyhemoglobin Sodium Potassium Chloride 97.8 L Carbon Dioxide BUN 25 H Creatinine 0.6 L Glucose 140 H POC Glucose 194 H 151 H Lactic Acid Calcium Phosphorus Magnesium AST ALT Lactate Dehydrogenase CK-MB (CK-2) C-Reactive Protein NT-Pro-B Natriuret Pep Total Protein Albumin Arterial Blood Glucose Urine WBC (Auto) 12/26/19 12/26/19 12/26/19 05:36 11:41 17:50 WBC RBC Hgb Hct MCHC RDW MCV MCH Lymph % (Auto) Patrick % (Auto) Patrick # Eos # Lymph # (Auto) Patrick # (Auto) Eos # (Auto) Seg Neutrophils % Seg Neuts % (Manual) Baso # (Auto) Lymphocytes % (Manual) Monocytes % (Manual) Eosinophils % (Manual) Basophils % (Manual) Seg Neutrophils # Seg Neutrophils # Man Lymphocytes # (Manual) Monocytes # (Manual) Eosinophils # (Manual) Nucleated RBC % Basophils # (Manual) APTT Heparin Anti-Xa Level ABG pH POC ABG pO2 ABG pO2 ABG HCO3 ABG O2 Saturation ABG Base Excess POC ABG pCO2 ABG Hemoglobin ABG Oxyhemoglobin ABG Glucose Oxyhemoglobin Sodium Potassium Chloride Carbon Dioxide BUN Creatinine Glucose POC Glucose 156 H 148 H 139 H Lactic Acid Calcium Phosphorus Magnesium AST ALT Lactate Dehydrogenase CK-MB (CK-2) C-Reactive Protein NT-Pro-B Natriuret Pep Total Protein Albumin Arterial Blood Glucose Urine WBC (Auto) 12/26/19 12/27/19 12/27/19 23:19 05:34 12:02 WBC RBC Hgb Hct MCHC RDW MCV MCH Lymph % (Auto) Patrick % (Auto) Patrick # Eos # Lymph # (Auto) Patrick # (Auto) Eos # (Auto) Seg Neutrophils % Seg Neuts % (Manual) Baso # (Auto) Lymphocytes % (Manual) Monocytes % (Manual) Eosinophils % (Manual) Basophils % (Manual) Seg Neutrophils # Seg Neutrophils # Man Lymphocytes # (Manual) Monocytes # (Manual) Eosinophils # (Manual) Nucleated RBC % Basophils # (Manual) APTT Heparin Anti-Xa Level ABG pH POC ABG pO2 ABG pO2 ABG HCO3 ABG O2 Saturation ABG Base Excess POC ABG pCO2 ABG Hemoglobin ABG Oxyhemoglobin ABG Glucose Oxyhemoglobin Sodium Potassium Chloride Carbon Dioxide BUN Creatinine Glucose POC Glucose 161 H 145 H 157 H Lactic Acid Calcium Phosphorus Magnesium AST ALT Lactate Dehydrogenase CK-MB (CK-2) C-Reactive Protein NT-Pro-B Natriuret Pep Total Protein Albumin Arterial Blood Glucose Urine WBC (Auto) 12/27/19 12/27/19 12/27/19 17:35 20:11 23:00 WBC RBC Hgb Hct MCHC RDW MCV MCH Lymph % (Auto) Patrick % (Auto) Patrick # Eos # Lymph # (Auto) Patrick # (Auto) Eos # (Auto) Seg Neutrophils % Seg Neuts % (Manual) Baso # (Auto) Lymphocytes % (Manual) Monocytes % (Manual) Eosinophils % (Manual) Basophils % (Manual) Seg Neutrophils # Seg Neutrophils # Man Lymphocytes # (Manual) Monocytes # (Manual) Eosinophils # (Manual) Nucleated RBC % Basophils # (Manual) APTT Heparin Anti-Xa Level 0.19 L ABG pH POC ABG pO2 ABG pO2 ABG HCO3 ABG O2 Saturation ABG Base Excess POC ABG pCO2 ABG Hemoglobin ABG Oxyhemoglobin ABG Glucose Oxyhemoglobin Sodium Potassium Chloride Carbon Dioxide BUN Creatinine Glucose POC Glucose 158 H 155 H Lactic Acid Calcium Phosphorus Magnesium AST ALT Lactate Dehydrogenase CK-MB (CK-2) C-Reactive Protein NT-Pro-B Natriuret Pep Total Protein Albumin Arterial Blood Glucose Urine WBC (Auto) 12/27/19 12/28/19 12/28/19 23:45 02:41 02:41 WBC 13.0 H RBC 3.48 L Hgb 9.5 L Hct 30.6 L MCHC 31 L RDW 16.6 H MCV MCH 27 L Lymph % (Auto) 13.0 L Patrick % (Auto) 8.0 H Patrick # Eos # Lymph # (Auto) Patrick # (Auto) 1.0 H Eos # (Auto) Seg Neutrophils % 76.3 H Seg Neuts % (Manual) Baso # (Auto) Lymphocytes % (Manual) Monocytes % (Manual) Eosinophils % (Manual) Basophils % (Manual) Seg Neutrophils # 9.9 H Seg Neutrophils # Man Lymphocytes # (Manual) Monocytes # (Manual) Eosinophils # (Manual) Nucleated RBC % Basophils # (Manual) APTT Heparin Anti-Xa Level ABG pH POC ABG pO2 ABG pO2 ABG HCO3 ABG O2 Saturation ABG Base Excess POC ABG pCO2 ABG Hemoglobin ABG Oxyhemoglobin ABG Glucose Oxyhemoglobin Sodium Potassium Chloride Carbon Dioxide BUN 22 H Creatinine 0.6 L Glucose 101 H POC Glucose 130 H Lactic Acid Calcium Phosphorus Magnesium AST ALT Lactate Dehydrogenase CK-MB (CK-2) C-Reactive Protein NT-Pro-B Natriuret Pep Total Protein Albumin Arterial Blood Glucose Urine WBC (Auto) 12/28/19 12/28/19 12/28/19 06:00 12:34 18:13 WBC RBC Hgb Hct MCHC RDW MCV MCH Lymph % (Auto) Patrick % (Auto) Patrick # Eos # Lymph # (Auto) Patrick # (Auto) Eos # (Auto) Seg Neutrophils % Seg Neuts % (Manual) Baso # (Auto) Lymphocytes % (Manual) Monocytes % (Manual) Eosinophils % (Manual) Basophils % (Manual) Seg Neutrophils # Seg Neutrophils # Man Lymphocytes # (Manual) Monocytes # (Manual) Eosinophils # (Manual) Nucleated RBC % Basophils # (Manual) APTT Heparin Anti-Xa Level ABG pH POC ABG pO2 ABG pO2 ABG HCO3 ABG O2 Saturation ABG Base Excess POC ABG pCO2 ABG Hemoglobin ABG Oxyhemoglobin ABG Glucose Oxyhemoglobin Sodium Potassium Chloride Carbon Dioxide BUN Creatinine Glucose POC Glucose 150 H 161 H 128 H Lactic Acid Calcium Phosphorus Magnesium AST ALT Lactate Dehydrogenase CK-MB (CK-2) C-Reactive Protein NT-Pro-B Natriuret Pep Total Protein Albumin Arterial Blood Glucose Urine WBC (Auto) 12/28/19 12/29/19 12/29/19 23:36 05:21 11:40 WBC RBC Hgb Hct MCHC RDW MCV MCH Lymph % (Auto) Patrick % (Auto) Patrick # Eos # Lymph # (Auto) Patrick # (Auto) Eos # (Auto) Seg Neutrophils % Seg Neuts % (Manual) Baso # (Auto) Lymphocytes % (Manual) Monocytes % (Manual) Eosinophils % (Manual) Basophils % (Manual) Seg Neutrophils # Seg Neutrophils # Man Lymphocytes # (Manual) Monocytes # (Manual) Eosinophils # (Manual) Nucleated RBC % Basophils # (Manual) APTT Heparin Anti-Xa Level ABG pH POC ABG pO2 ABG pO2 ABG HCO3 ABG O2 Saturation ABG Base Excess POC ABG pCO2 ABG Hemoglobin ABG Oxyhemoglobin ABG Glucose Oxyhemoglobin Sodium Potassium Chloride Carbon Dioxide BUN Creatinine Glucose POC Glucose 137 H 136 H 166 H Lactic Acid Calcium Phosphorus Magnesium AST ALT Lactate Dehydrogenase CK-MB (CK-2) C-Reactive Protein NT-Pro-B Natriuret Pep Total Protein Albumin Arterial Blood Glucose Urine WBC (Auto) 12/29/19 12/29/19 12/29/19 17:23 19:21 23:38 WBC RBC Hgb Hct MCHC RDW MCV MCH Lymph % (Auto) Patrick % (Auto) Patrick # Eos # Lymph # (Auto) Patrick # (Auto) Eos # (Auto) Seg Neutrophils % Seg Neuts % (Manual) Baso # (Auto) Lymphocytes % (Manual) Monocytes % (Manual) Eosinophils % (Manual) Basophils % (Manual) Seg Neutrophils # Seg Neutrophils # Man Lymphocytes # (Manual) Monocytes # (Manual) Eosinophils # (Manual) Nucleated RBC % Basophils # (Manual) APTT Heparin Anti-Xa Level 0.20 L ABG pH POC ABG pO2 ABG pO2 ABG HCO3 ABG O2 Saturation ABG Base Excess POC ABG pCO2 ABG Hemoglobin ABG Oxyhemoglobin ABG Glucose Oxyhemoglobin Sodium Potassium Chloride Carbon Dioxide BUN Creatinine Glucose POC Glucose 144 H 141 H Lactic Acid Calcium Phosphorus Magnesium AST ALT Lactate Dehydrogenase CK-MB (CK-2) C-Reactive Protein NT-Pro-B Natriuret Pep Total Protein Albumin Arterial Blood Glucose Urine WBC (Auto) 12/30/19 12/30/19 12/30/19 03:58 03:58 04:59 WBC RBC 3.54 L Hgb 9.8 L Hct 30.7 L MCHC RDW 16.8 H MCV MCH Lymph % (Auto) Patrick % (Auto) Patrick # Eos # Lymph # (Auto) Patrick # (Auto) Eos # (Auto) Seg Neutrophils % Seg Neuts % (Manual) Baso # (Auto) Lymphocytes % (Manual) Monocytes % (Manual) Eosinophils % (Manual) Basophils % (Manual) Seg Neutrophils # Seg Neutrophils # Man Lymphocytes # (Manual) Monocytes # (Manual) Eosinophils # (Manual) Nucleated RBC % Basophils # (Manual) APTT Heparin Anti-Xa Level ABG pH POC ABG pO2 ABG pO2 ABG HCO3 29.8 H ABG O2 Saturation ABG Base Excess 4.8 H POC ABG pCO2 ABG Hemoglobin 11.2 L ABG Oxyhemoglobin ABG Glucose Oxyhemoglobin 93.8 L Sodium Potassium Chloride 97.8 L Carbon Dioxide BUN 26 H Creatinine Glucose 168 H POC Glucose Lactic Acid Calcium Phosphorus Magnesium AST ALT Lactate Dehydrogenase CK-MB (CK-2) C-Reactive Protein NT-Pro-B Natriuret Pep Total Protein Albumin Arterial Blood Glucose Urine WBC (Auto) 12/30/19 12/30/19 12/30/19 05:45 11:34 17:28 WBC RBC Hgb Hct MCHC RDW MCV MCH Lymph % (Auto) Patrick % (Auto) Patrick # Eos # Lymph # (Auto) Patrick # (Auto) Eos # (Auto) Seg Neutrophils % Seg Neuts % (Manual) Baso # (Auto) Lymphocytes % (Manual) Monocytes % (Manual) Eosinophils % (Manual) Basophils % (Manual) Seg Neutrophils # Seg Neutrophils # Man Lymphocytes # (Manual) Monocytes # (Manual) Eosinophils # (Manual) Nucleated RBC % Basophils # (Manual) APTT Heparin Anti-Xa Level ABG pH POC ABG pO2 ABG pO2 ABG HCO3 ABG O2 Saturation ABG Base Excess POC ABG pCO2 ABG Hemoglobin ABG Oxyhemoglobin ABG Glucose Oxyhemoglobin Sodium Potassium Chloride Carbon Dioxide BUN Creatinine Glucose POC Glucose 163 H 180 H 150 H Lactic Acid Calcium Phosphorus Magnesium AST ALT Lactate Dehydrogenase CK-MB (CK-2) C-Reactive Protein NT-Pro-B Natriuret Pep Total Protein Albumin Arterial Blood Glucose Urine WBC (Auto) 12/30/19 12/31/19 12/31/19 23:43 04:55 05:07 WBC RBC Hgb Hct MCHC RDW MCV MCH Lymph % (Auto) Patrick % (Auto) Patrick # Eos # Lymph # (Auto) Patrick # (Auto) Eos # (Auto) Seg Neutrophils % Seg Neuts % (Manual) Baso # (Auto) Lymphocytes % (Manual) Monocytes % (Manual) Eosinophils % (Manual) Basophils % (Manual) Seg Neutrophils # Seg Neutrophils # Man Lymphocytes # (Manual) Monocytes # (Manual) Eosinophils # (Manual) Nucleated RBC % Basophils # (Manual) APTT Heparin Anti-Xa Level ABG pH POC ABG pO2 ABG pO2 ABG HCO3 ABG O2 Saturation ABG Base Excess POC ABG pCO2 ABG Hemoglobin ABG Oxyhemoglobin ABG Glucose Oxyhemoglobin Sodium Potassium 5.6 H D Chloride Carbon Dioxide BUN 33 H Creatinine Glucose 131 H POC Glucose 142 H 134 H Lactic Acid Calcium Phosphorus Magnesium AST ALT Lactate Dehydrogenase CK-MB (CK-2) C-Reactive Protein NT-Pro-B Natriuret Pep Total Protein Albumin Arterial Blood Glucose Urine WBC (Auto) 12/31/19 12/31/19 12/31/19 11:30 17:19 17:36 WBC RBC Hgb Hct MCHC RDW MCV MCH Lymph % (Auto) Patrick % (Auto) Patrick # Eos # Lymph # (Auto) Patrick # (Auto) Eos # (Auto) Seg Neutrophils % Seg Neuts % (Manual) Baso # (Auto) Lymphocytes % (Manual) Monocytes % (Manual) Eosinophils % (Manual) Basophils % (Manual) Seg Neutrophils # Seg Neutrophils # Man Lymphocytes # (Manual) Monocytes # (Manual) Eosinophils # (Manual) Nucleated RBC % Basophils # (Manual) APTT Heparin Anti-Xa Level ABG pH POC ABG pO2 ABG pO2 ABG HCO3 ABG O2 Saturation ABG Base Excess POC ABG pCO2 ABG Hemoglobin ABG Oxyhemoglobin ABG Glucose Oxyhemoglobin Sodium Potassium Chloride Carbon Dioxide BUN 35 H Creatinine Glucose 156 H POC Glucose 158 H 181 H Lactic Acid Calcium Phosphorus Magnesium AST ALT Lactate Dehydrogenase CK-MB (CK-2) C-Reactive Protein NT-Pro-B Natriuret Pep Total Protein Albumin Arterial Blood Glucose Urine WBC (Auto) 12/31/19 12/31/19 12/31/19 18:16 19:41 21:53 WBC RBC Hgb Hct MCHC RDW MCV MCH Lymph % (Auto) Patrick % (Auto) Patrick # Eos # Lymph # (Auto) Patrick # (Auto) Eos # (Auto) Seg Neutrophils % Seg Neuts % (Manual) Baso # (Auto) Lymphocytes % (Manual) Monocytes % (Manual) Eosinophils % (Manual) Basophils % (Manual) Seg Neutrophils # Seg Neutrophils # Man Lymphocytes # (Manual) Monocytes # (Manual) Eosinophils # (Manual) Nucleated RBC % Basophils # (Manual) APTT Heparin Anti-Xa Level 0.20 L ABG pH POC ABG pO2 ABG pO2 ABG HCO3 ABG O2 Saturation ABG Base Excess POC ABG pCO2 ABG Hemoglobin ABG Oxyhemoglobin ABG Glucose Oxyhemoglobin Sodium Potassium Chloride Carbon Dioxide BUN 34 H Creatinine Glucose 169 H POC Glucose 141 H Lactic Acid Calcium Phosphorus Magnesium AST ALT Lactate Dehydrogenase CK-MB (CK-2) C-Reactive Protein NT-Pro-B Natriuret Pep Total Protein Albumin Arterial Blood Glucose Urine WBC (Auto) 12/31/19 01/01/20 01/01/20 23:51 05:17 10:40 WBC RBC Hgb Hct MCHC RDW MCV MCH Lymph % (Auto) Patrick % (Auto) Patrick # Eos # Lymph # (Auto) Patrick # (Auto) Eos # (Auto) Seg Neutrophils % Seg Neuts % (Manual) Baso # (Auto) Lymphocytes % (Manual) Monocytes % (Manual) Eosinophils % (Manual) Basophils % (Manual) Seg Neutrophils # Seg Neutrophils # Man Lymphocytes # (Manual) Monocytes # (Manual) Eosinophils # (Manual) Nucleated RBC % Basophils # (Manual) APTT Heparin Anti-Xa Level ABG pH POC ABG pO2 ABG pO2 ABG HCO3 ABG O2 Saturation ABG Base Excess POC ABG pCO2 ABG Hemoglobin ABG Oxyhemoglobin ABG Glucose Oxyhemoglobin Sodium Potassium Chloride Carbon Dioxide BUN 31 H Creatinine 0.7 L Glucose 137 H POC Glucose 131 H 155 H Lactic Acid Calcium Phosphorus Magnesium AST 73 H ALT 97 H Lactate Dehydrogenase CK-MB (CK-2) C-Reactive Protein NT-Pro-B Natriuret Pep 3866 H Total Protein Albumin 2.8 L Arterial Blood Glucose Urine WBC (Auto) 01/01/20 01/01/20 01/01/20 12:26 15:33 17:53 WBC 14.3 H RBC 3.35 L Hgb 9.1 L Hct 28.8 L MCHC RDW 17.0 H MCV MCH 27 L Lymph % (Auto) 7.0 L Patrick % (Auto) 7.6 H Patrick # Eos # Lymph # (Auto) 1.0 L Patrick # (Auto) 1.1 H Eos # (Auto) Seg Neutrophils % 83.3 H Seg Neuts % (Manual) Baso # (Auto) Lymphocytes % (Manual) Monocytes % (Manual) Eosinophils % (Manual) Basophils % (Manual) Seg Neutrophils # 12.0 H Seg Neutrophils # Man Lymphocytes # (Manual) Monocytes # (Manual) Eosinophils # (Manual) Nucleated RBC % Basophils # (Manual) APTT Heparin Anti-Xa Level ABG pH POC ABG pO2 ABG pO2 ABG HCO3 ABG O2 Saturation ABG Base Excess POC ABG pCO2 ABG Hemoglobin ABG Oxyhemoglobin ABG Glucose Oxyhemoglobin Sodium Potassium Chloride Carbon Dioxide BUN Creatinine Glucose POC Glucose 128 H 128 H Lactic Acid Calcium Phosphorus Magnesium AST ALT Lactate Dehydrogenase CK-MB (CK-2) C-Reactive Protein NT-Pro-B Natriuret Pep Total Protein Albumin Arterial Blood Glucose Urine WBC (Auto) 01/01/20 01/02/20 01/02/20 23:04 05:39 07:00 WBC RBC Hgb Hct MCHC RDW MCV MCH Lymph % (Auto) Patrick % (Auto) Patrick # Eos # Lymph # (Auto) Patrick # (Auto) Eos # (Auto) Seg Neutrophils % Seg Neuts % (Manual) Baso # (Auto) Lymphocytes % (Manual) Monocytes % (Manual) Eosinophils % (Manual) Basophils % (Manual) Seg Neutrophils # Seg Neutrophils # Man Lymphocytes # (Manual) Monocytes # (Manual) Eosinophils # (Manual) Nucleated RBC % Basophils # (Manual) APTT Heparin Anti-Xa Level 0.13 L ABG pH POC ABG pO2 ABG pO2 ABG HCO3 ABG O2 Saturation ABG Base Excess POC ABG pCO2 ABG Hemoglobin ABG Oxyhemoglobin ABG Glucose Oxyhemoglobin Sodium Potassium Chloride Carbon Dioxide BUN Creatinine Glucose POC Glucose 120 H 169 H Lactic Acid Calcium Phosphorus Magnesium AST ALT Lactate Dehydrogenase CK-MB (CK-2) C-Reactive Protein NT-Pro-B Natriuret Pep Total Protein Albumin Arterial Blood Glucose Urine WBC (Auto) 01/02/20 01/02/20 01/02/20 12:15 14:06 17:58 WBC RBC Hgb Hct MCHC RDW MCV MCH Lymph % (Auto) Patrick % (Auto) Patrick # Eos # Lymph # (Auto) Patrick # (Auto) Eos # (Auto) Seg Neutrophils % Seg Neuts % (Manual) Baso # (Auto) Lymphocytes % (Manual) Monocytes % (Manual) Eosinophils % (Manual) Basophils % (Manual) Seg Neutrophils # Seg Neutrophils # Man Lymphocytes # (Manual) Monocytes # (Manual) Eosinophils # (Manual) Nucleated RBC % Basophils # (Manual) APTT Heparin Anti-Xa Level < 0.10 L ABG pH POC ABG pO2 ABG pO2 ABG HCO3 ABG O2 Saturation ABG Base Excess POC ABG pCO2 ABG Hemoglobin ABG Oxyhemoglobin ABG Glucose Oxyhemoglobin Sodium Potassium Chloride Carbon Dioxide BUN Creatinine Glucose POC Glucose 190 H 198 H Lactic Acid Calcium Phosphorus Magnesium AST ALT Lactate Dehydrogenase CK-MB (CK-2) C-Reactive Protein NT-Pro-B Natriuret Pep Total Protein Albumin Arterial Blood Glucose Urine WBC (Auto) 01/02/20 01/02/20 01/03/20 21:43 23:33 05:42 WBC RBC Hgb Hct MCHC RDW MCV MCH Lymph % (Auto) Patrick % (Auto) Patrick # Eos # Lymph # (Auto) Patrick # (Auto) Eos # (Auto) Seg Neutrophils % Seg Neuts % (Manual) Baso # (Auto) Lymphocytes % (Manual) Monocytes % (Manual) Eosinophils % (Manual) Basophils % (Manual) Seg Neutrophils # Seg Neutrophils # Man Lymphocytes # (Manual) Monocytes # (Manual) Eosinophils # (Manual) Nucleated RBC % Basophils # (Manual) APTT Heparin Anti-Xa Level 0.10 L ABG pH POC ABG pO2 ABG pO2 ABG HCO3 ABG O2 Saturation ABG Base Excess POC ABG pCO2 ABG Hemoglobin ABG Oxyhemoglobin ABG Glucose Oxyhemoglobin Sodium Potassium Chloride Carbon Dioxide BUN Creatinine Glucose POC Glucose 180 H 163 H Lactic Acid Calcium Phosphorus Magnesium AST ALT Lactate Dehydrogenase CK-MB (CK-2) C-Reactive Protein NT-Pro-B Natriuret Pep Total Protein Albumin Arterial Blood Glucose Urine WBC (Auto) 01/03/20 01/03/20 01/03/20 06:50 07:25 07:45 WBC 12.1 H RBC 3.35 L Hgb 9.0 L Hct 28.9 L MCHC 31 L RDW 16.6 H MCV MCH 27 L Lymph % (Auto) 13.0 L Patrick % (Auto) 8.6 H Patrick # Eos # Lymph # (Auto) Patrick # (Auto) 1.0 H Eos # (Auto) Seg Neutrophils % 75.9 H Seg Neuts % (Manual) Baso # (Auto) Lymphocytes % (Manual) Monocytes % (Manual) Eosinophils % (Manual) Basophils % (Manual) Seg Neutrophils # 9.2 H Seg Neutrophils # Man Lymphocytes # (Manual) Monocytes # (Manual) Eosinophils # (Manual) Nucleated RBC % Basophils # (Manual) APTT Heparin Anti-Xa Level 0.29 L ABG pH POC ABG pO2 ABG pO2 ABG HCO3 ABG O2 Saturation ABG Base Excess POC ABG pCO2 ABG Hemoglobin ABG Oxyhemoglobin ABG Glucose Oxyhemoglobin Sodium Potassium 3.3 L D Chloride Carbon Dioxide 35 H D BUN 23 H Creatinine 0.6 L Glucose 149 H POC Glucose Lactic Acid Calcium Phosphorus Magnesium AST ALT 88 H Lactate Dehydrogenase CK-MB (CK-2) C-Reactive Protein NT-Pro-B Natriuret Pep Total Protein 6.2 L Albumin 2.9 L Arterial Blood Glucose Urine WBC (Auto) 01/03/20 01/03/20 01/03/20 12:05 17:42 18:30 WBC RBC Hgb Hct MCHC RDW MCV MCH Lymph % (Auto) Patrick % (Auto) Patrick # Eos # Lymph # (Auto) Patrick # (Auto) Eos # (Auto) Seg Neutrophils % Seg Neuts % (Manual) Baso # (Auto) Lymphocytes % (Manual) Monocytes % (Manual) Eosinophils % (Manual) Basophils % (Manual) Seg Neutrophils # Seg Neutrophils # Man Lymphocytes # (Manual) Monocytes # (Manual) Eosinophils # (Manual) Nucleated RBC % Basophils # (Manual) APTT Heparin Anti-Xa Level ABG pH POC ABG pO2 ABG pO2 70.7 L ABG HCO3 36.1 H ABG O2 Saturation 94.4 L ABG Base Excess 10.0 H POC ABG pCO2 ABG Hemoglobin 9.7 L ABG Oxyhemoglobin ABG Glucose Oxyhemoglobin 91.8 L Sodium Potassium Chloride Carbon Dioxide BUN Creatinine Glucose POC Glucose 128 H 132 H Lactic Acid Calcium Phosphorus Magnesium AST ALT Lactate Dehydrogenase CK-MB (CK-2) C-Reactive Protein NT-Pro-B Natriuret Pep Total Protein Albumin Arterial Blood Glucose Urine WBC (Auto) 01/04/20 01/04/20 01/04/20 00:10 04:26 05:23 WBC RBC Hgb Hct MCHC RDW MCV MCH Lymph % (Auto) Patrick % (Auto) Patrick # Eos # Lymph # (Auto) Patrick # (Auto) Eos # (Auto) Seg Neutrophils % Seg Neuts % (Manual) Baso # (Auto) Lymphocytes % (Manual) Monocytes % (Manual) Eosinophils % (Manual) Basophils % (Manual) Seg Neutrophils # Seg Neutrophils # Man Lymphocytes # (Manual) Monocytes # (Manual) Eosinophils # (Manual) Nucleated RBC % Basophils # (Manual) APTT Heparin Anti-Xa Level 0.16 L ABG pH POC ABG pO2 ABG pO2 ABG HCO3 ABG O2 Saturation ABG Base Excess POC ABG pCO2 ABG Hemoglobin ABG Oxyhemoglobin ABG Glucose Oxyhemoglobin Sodium Potassium Chloride Carbon Dioxide BUN Creatinine Glucose POC Glucose 121 H 119 H Lactic Acid Calcium Phosphorus Magnesium AST ALT Lactate Dehydrogenase CK-MB (CK-2) C-Reactive Protein NT-Pro-B Natriuret Pep Total Protein Albumin Arterial Blood Glucose Urine WBC (Auto) 01/04/20 01/04/20 01/04/20 09:50 09:50 12:18 WBC 15.4 H RBC 3.30 L Hgb 8.7 L Hct 28.2 L MCHC 31 L RDW 17.0 H MCV MCH 26 L Lymph % (Auto) Patrick % (Auto) 7.6 H Patrick # Eos # Lymph # (Auto) Patrick # (Auto) 1.2 H Eos # (Auto) Seg Neutrophils % 75.4 H Seg Neuts % (Manual) Baso # (Auto) Lymphocytes % (Manual) Monocytes % (Manual) Eosinophils % (Manual) Basophils % (Manual) Seg Neutrophils # 11.6 H Seg Neutrophils # Man Lymphocytes # (Manual) Monocytes # (Manual) Eosinophils # (Manual) Nucleated RBC % Basophils # (Manual) APTT Heparin Anti-Xa Level ABG pH POC ABG pO2 ABG pO2 ABG HCO3 ABG O2 Saturation ABG Base Excess POC ABG pCO2 ABG Hemoglobin ABG Oxyhemoglobin ABG Glucose Oxyhemoglobin Sodium 148 H Potassium 3.5 L Chloride Carbon Dioxide 32 H BUN Creatinine 0.6 L Glucose 114 H POC Glucose 111 H Lactic Acid Calcium Phosphorus Magnesium AST ALT 59 H Lactate Dehydrogenase CK-MB (CK-2) C-Reactive Protein NT-Pro-B Natriuret Pep Total Protein Albumin 2.6 L Arterial Blood Glucose Urine WBC (Auto) 01/05/20 01/05/20 01/05/20 04:05 04:05 05:19 WBC 11.7 H RBC 3.50 L Hgb 9.3 L Hct 29.9 L MCHC 31 L RDW 16.6 H MCV MCH 27 L Lymph % (Auto) 13.1 L Patrick % (Auto) 9.7 H Patrick # Eos # Lymph # (Auto) Patrick # (Auto) 1.1 H Eos # (Auto) Seg Neutrophils % 74.0 H Seg Neuts % (Manual) Baso # (Auto) Lymphocytes % (Manual) Monocytes % (Manual) Eosinophils % (Manual) Basophils % (Manual) Seg Neutrophils # 8.6 H Seg Neutrophils # Man Lymphocytes # (Manual) Monocytes # (Manual) Eosinophils # (Manual) Nucleated RBC % Basophils # (Manual) APTT Heparin Anti-Xa Level ABG pH POC ABG pO2 ABG pO2 ABG HCO3 ABG O2 Saturation ABG Base Excess POC ABG pCO2 ABG Hemoglobin ABG Oxyhemoglobin ABG Glucose Oxyhemoglobin Sodium 151 H Potassium Chloride Carbon Dioxide 34 H BUN Creatinine 0.7 L Glucose POC Glucose 112 H Lactic Acid Calcium Phosphorus Magnesium AST ALT 59 H Lactate Dehydrogenase CK-MB (CK-2) C-Reactive Protein NT-Pro-B Natriuret Pep Total Protein 5.8 L Albumin 2.6 L Arterial Blood Glucose Urine WBC (Auto) 01/05/20 01/06/20 01/06/20 16:04 00:23 04:44 WBC RBC 3.36 L Hgb 8.9 L Hct 28.7 L MCHC 31 L RDW 16.9 H MCV MCH 26 L Lymph % (Auto) Patrick % (Auto) 9.4 H Patrick # Eos # Lymph # (Auto) Patrick # (Auto) Eos # (Auto) Seg Neutrophils % Seg Neuts % (Manual) Baso # (Auto) Lymphocytes % (Manual) Monocytes % (Manual) Eosinophils % (Manual) Basophils % (Manual) Seg Neutrophils # Seg Neutrophils # Man Lymphocytes # (Manual) Monocytes # (Manual) Eosinophils # (Manual) Nucleated RBC % Basophils # (Manual) APTT Heparin Anti-Xa Level ABG pH POC ABG pO2 ABG pO2 ABG HCO3 ABG O2 Saturation ABG Base Excess POC ABG pCO2 ABG Hemoglobin ABG Oxyhemoglobin ABG Glucose Oxyhemoglobin Sodium 151 H Potassium 3.2 L Chloride Carbon Dioxide 34 H BUN Creatinine 0.6 L Glucose POC Glucose 107 H Lactic Acid Calcium Phosphorus Magnesium AST ALT Lactate Dehydrogenase CK-MB (CK-2) C-Reactive Protein NT-Pro-B Natriuret Pep Total Protein Albumin Arterial Blood Glucose Urine WBC (Auto) 01/06/20 01/06/20 01/06/20 04:44 05:33 12:04 WBC RBC Hgb Hct MCHC RDW MCV MCH Lymph % (Auto) Patrick % (Auto) Patrick # Eos # Lymph # (Auto) Patrick # (Auto) Eos # (Auto) Seg Neutrophils % Seg Neuts % (Manual) Baso # (Auto) Lymphocytes % (Manual) Monocytes % (Manual) Eosinophils % (Manual) Basophils % (Manual) Seg Neutrophils # Seg Neutrophils # Man Lymphocytes # (Manual) Monocytes # (Manual) Eosinophils # (Manual) Nucleated RBC % Basophils # (Manual) APTT Heparin Anti-Xa Level ABG pH POC ABG pO2 ABG pO2 ABG HCO3 ABG O2 Saturation ABG Base Excess POC ABG pCO2 ABG Hemoglobin ABG Oxyhemoglobin ABG Glucose Oxyhemoglobin Sodium 151 H Potassium 3.4 L Chloride Carbon Dioxide 33 H BUN Creatinine 0.6 L Glucose 118 H POC Glucose 118 H 123 H Lactic Acid Calcium Phosphorus Magnesium AST ALT Lactate Dehydrogenase CK-MB (CK-2) C-Reactive Protein NT-Pro-B Natriuret Pep Total Protein 6.2 L Albumin 2.6 L Arterial Blood Glucose Urine WBC (Auto) 01/06/20 01/07/20 01/07/20 17:54 00:06 04:10 WBC RBC 3.42 L Hgb 8.9 L Hct 29.0 L MCHC 31 L RDW 17.1 H MCV MCH 26 L Lymph % (Auto) Patrick % (Auto) 8.4 H Patrick # Eos # Lymph # (Auto) Patrick # (Auto) Eos # (Auto) Seg Neutrophils % Seg Neuts % (Manual) Baso # (Auto) Lymphocytes % (Manual) Monocytes % (Manual) Eosinophils % (Manual) Basophils % (Manual) Seg Neutrophils # Seg Neutrophils # Man Lymphocytes # (Manual) Monocytes # (Manual) Eosinophils # (Manual) Nucleated RBC % Basophils # (Manual) APTT Heparin Anti-Xa Level ABG pH POC ABG pO2 ABG pO2 ABG HCO3 ABG O2 Saturation ABG Base Excess POC ABG pCO2 ABG Hemoglobin ABG Oxyhemoglobin ABG Glucose Oxyhemoglobin Sodium Potassium Chloride Carbon Dioxide BUN Creatinine Glucose POC Glucose 112 H 126 H Lactic Acid Calcium Phosphorus Magnesium AST ALT Lactate Dehydrogenase CK-MB (CK-2) C-Reactive Protein NT-Pro-B Natriuret Pep Total Protein Albumin Arterial Blood Glucose Urine WBC (Auto) 01/07/20 01/07/20 01/07/20 04:10 05:59 12:27 WBC RBC Hgb Hct MCHC RDW MCV MCH Lymph % (Auto) Patrick % (Auto) Patrick # Eos # Lymph # (Auto) Patrick # (Auto) Eos # (Auto) Seg Neutrophils % Seg Neuts % (Manual) Baso # (Auto) Lymphocytes % (Manual) Monocytes % (Manual) Eosinophils % (Manual) Basophils % (Manual) Seg Neutrophils # Seg Neutrophils # Man Lymphocytes # (Manual) Monocytes # (Manual) Eosinophils # (Manual) Nucleated RBC % Basophils # (Manual) APTT Heparin Anti-Xa Level ABG pH POC ABG pO2 ABG pO2 ABG HCO3 ABG O2 Saturation ABG Base Excess POC ABG pCO2 ABG Hemoglobin ABG Oxyhemoglobin ABG Glucose Oxyhemoglobin Sodium 153 H Potassium 3.5 L Chloride Carbon Dioxide 34 H BUN Creatinine 0.6 L Glucose 121 H POC Glucose 121 H 126 H Lactic Acid Calcium Phosphorus Magnesium AST ALT Lactate Dehydrogenase CK-MB (CK-2) C-Reactive Protein NT-Pro-B Natriuret Pep Total Protein 5.9 L Albumin 2.4 L Arterial Blood Glucose Urine WBC (Auto) 01/07/20 01/08/20 01/08/20 18:12 00:03 05:41 WBC RBC Hgb Hct MCHC RDW MCV MCH Lymph % (Auto) Patrick % (Auto) Patrick # Eos # Lymph # (Auto) Patrick # (Auto) Eos # (Auto) Seg Neutrophils % Seg Neuts % (Manual) Baso # (Auto) Lymphocytes % (Manual) Monocytes % (Manual) Eosinophils % (Manual) Basophils % (Manual) Seg Neutrophils # Seg Neutrophils # Man Lymphocytes # (Manual) Monocytes # (Manual) Eosinophils # (Manual) Nucleated RBC % Basophils # (Manual) APTT Heparin Anti-Xa Level ABG pH POC ABG pO2 ABG pO2 ABG HCO3 ABG O2 Saturation ABG Base Excess POC ABG pCO2 ABG Hemoglobin ABG Oxyhemoglobin ABG Glucose Oxyhemoglobin Sodium Potassium Chloride Carbon Dioxide BUN Creatinine Glucose POC Glucose 124 H 130 H 138 H Lactic Acid Calcium Phosphorus Magnesium AST ALT Lactate Dehydrogenase CK-MB (CK-2) C-Reactive Protein NT-Pro-B Natriuret Pep Total Protein Albumin Arterial Blood Glucose Urine WBC (Auto) 01/08/20 01/08/20 01/08/20 09:28 11:42 18:21 WBC RBC Hgb Hct MCHC RDW MCV MCH Lymph % (Auto) Patrick % (Auto) Patrick # Eos # Lymph # (Auto) Patrick # (Auto) Eos # (Auto) Seg Neutrophils % Seg Neuts % (Manual) Baso # (Auto) Lymphocytes % (Manual) Monocytes % (Manual) Eosinophils % (Manual) Basophils % (Manual) Seg Neutrophils # Seg Neutrophils # Man Lymphocytes # (Manual) Monocytes # (Manual) Eosinophils # (Manual) Nucleated RBC % Basophils # (Manual) APTT Heparin Anti-Xa Level ABG pH POC ABG pO2 ABG pO2 ABG HCO3 ABG O2 Saturation ABG Base Excess POC ABG pCO2 ABG Hemoglobin ABG Oxyhemoglobin ABG Glucose Oxyhemoglobin Sodium Potassium Chloride Carbon Dioxide BUN Creatinine Glucose POC Glucose 181 H 150 H 129 H Lactic Acid Calcium Phosphorus Magnesium AST ALT Lactate Dehydrogenase CK-MB (CK-2) C-Reactive Protein NT-Pro-B Natriuret Pep Total Protein Albumin Arterial Blood Glucose Urine WBC (Auto) 01/08/20 01/08/20 01/09/20 19:25 23:55 04:11 WBC RBC 3.43 L Hgb 8.9 L Hct 28.7 L MCHC 31 L RDW 17.6 H MCV MCH 26 L Lymph % (Auto) Patrick % (Auto) 8.6 H Patrick # Eos # Lymph # (Auto) Patrick # (Auto) Eos # (Auto) Seg Neutrophils % Seg Neuts % (Manual) Baso # (Auto) Lymphocytes % (Manual) Monocytes % (Manual) Eosinophils % (Manual) Basophils % (Manual) Seg Neutrophils # Seg Neutrophils # Man Lymphocytes # (Manual) Monocytes # (Manual) Eosinophils # (Manual) Nucleated RBC % Basophils # (Manual) APTT Heparin Anti-Xa Level ABG pH POC ABG pO2 ABG pO2 ABG HCO3 ABG O2 Saturation ABG Base Excess POC ABG pCO2 ABG Hemoglobin ABG Oxyhemoglobin ABG Glucose Oxyhemoglobin Sodium Potassium Chloride Carbon Dioxide BUN Creatinine 0.7 L Glucose 117 H POC Glucose 132 H Lactic Acid Calcium Phosphorus Magnesium AST ALT Lactate Dehydrogenase CK-MB (CK-2) C-Reactive Protein NT-Pro-B Natriuret Pep Total Protein Albumin Arterial Blood Glucose Urine WBC (Auto) 01/09/20 01/09/20 01/09/20 04:11 05:38 22:58 WBC RBC Hgb Hct MCHC RDW MCV MCH Lymph % (Auto) Patrick % (Auto) Patrick # Eos # Lymph # (Auto) Patrick # (Auto) Eos # (Auto) Seg Neutrophils % Seg Neuts % (Manual) Baso # (Auto) Lymphocytes % (Manual) Monocytes % (Manual) Eosinophils % (Manual) Basophils % (Manual) Seg Neutrophils # Seg Neutrophils # Man Lymphocytes # (Manual) Monocytes # (Manual) Eosinophils # (Manual) Nucleated RBC % Basophils # (Manual) APTT Heparin Anti-Xa Level ABG pH POC ABG pO2 ABG pO2 ABG HCO3 ABG O2 Saturation ABG Base Excess POC ABG pCO2 ABG Hemoglobin ABG Oxyhemoglobin ABG Glucose Oxyhemoglobin Sodium 147 H Potassium 3.3 L D Chloride Carbon Dioxide 32 H BUN Creatinine 0.6 L Glucose 106 H POC Glucose 107 H 113 H Lactic Acid Calcium Phosphorus Magnesium AST ALT Lactate Dehydrogenase CK-MB (CK-2) C-Reactive Protein NT-Pro-B Natriuret Pep Total Protein Albumin Arterial Blood Glucose Urine WBC (Auto) 01/10/20 01/10/20 01/10/20 04:05 11:36 17:54 WBC RBC Hgb Hct MCHC RDW MCV MCH Lymph % (Auto) Patrick % (Auto) Patrick # Eos # Lymph # (Auto) Patrick # (Auto) Eos # (Auto) Seg Neutrophils % Seg Neuts % (Manual) Baso # (Auto) Lymphocytes % (Manual) Monocytes % (Manual) Eosinophils % (Manual) Basophils % (Manual) Seg Neutrophils # Seg Neutrophils # Man Lymphocytes # (Manual) Monocytes # (Manual) Eosinophils # (Manual) Nucleated RBC % Basophils # (Manual) APTT Heparin Anti-Xa Level ABG pH POC ABG pO2 ABG pO2 ABG HCO3 ABG O2 Saturation ABG Base Excess POC ABG pCO2 ABG Hemoglobin ABG Oxyhemoglobin ABG Glucose Oxyhemoglobin Sodium Potassium Chloride Carbon Dioxide BUN Creatinine 0.7 L Glucose 110 H POC Glucose 129 H 117 H Lactic Acid Calcium Phosphorus Magnesium AST ALT Lactate Dehydrogenase CK-MB (CK-2) C-Reactive Protein NT-Pro-B Natriuret Pep Total Protein Albumin Arterial Blood Glucose Urine WBC (Auto) 01/10/20 01/11/20 01/11/20 23:52 03:19 12:09 WBC RBC Hgb Hct MCHC RDW MCV MCH Lymph % (Auto) Patrick % (Auto) Patrick # Eos # Lymph # (Auto) Patrick # (Auto) Eos # (Auto) Seg Neutrophils % Seg Neuts % (Manual) Baso # (Auto) Lymphocytes % (Manual) Monocytes % (Manual) Eosinophils % (Manual) Basophils % (Manual) Seg Neutrophils # Seg Neutrophils # Man Lymphocytes # (Manual) Monocytes # (Manual) Eosinophils # (Manual) Nucleated RBC % Basophils # (Manual) APTT Heparin Anti-Xa Level ABG pH POC ABG pO2 ABG pO2 ABG HCO3 ABG O2 Saturation ABG Base Excess POC ABG pCO2 ABG Hemoglobin ABG Oxyhemoglobin ABG Glucose Oxyhemoglobin Sodium Potassium Chloride Carbon Dioxide BUN Creatinine Glucose POC Glucose 117 H 136 H 115 H Lactic Acid Calcium Phosphorus Magnesium AST ALT Lactate Dehydrogenase CK-MB (CK-2) C-Reactive Protein NT-Pro-B Natriuret Pep Total Protein Albumin Arterial Blood Glucose Urine WBC (Auto) 01/11/20 01/11/20 01/12/20 18:27 23:28 00:23 WBC RBC Hgb 9.8 L Hct 31.6 L MCHC 31 L RDW 17.8 H MCV 83 L MCH 26 L Lymph % (Auto) Patrick % (Auto) 8.0 H Patrick # Eos # Lymph # (Auto) Patrick # (Auto) Eos # (Auto) Seg Neutrophils % Seg Neuts % (Manual) Baso # (Auto) Lymphocytes % (Manual) Monocytes % (Manual) Eosinophils % (Manual) Basophils % (Manual) Seg Neutrophils # Seg Neutrophils # Man Lymphocytes # (Manual) Monocytes # (Manual) Eosinophils # (Manual) Nucleated RBC % Basophils # (Manual) APTT Heparin Anti-Xa Level ABG pH POC ABG pO2 ABG pO2 ABG HCO3 ABG O2 Saturation ABG Base Excess POC ABG pCO2 ABG Hemoglobin ABG Oxyhemoglobin ABG Glucose Oxyhemoglobin Sodium Potassium Chloride Carbon Dioxide BUN Creatinine Glucose POC Glucose 118 H 122 H Lactic Acid Calcium Phosphorus Magnesium AST ALT Lactate Dehydrogenase CK-MB (CK-2) C-Reactive Protein NT-Pro-B Natriuret Pep Total Protein Albumin Arterial Blood Glucose Urine WBC (Auto) 01/12/20 01/12/20 01/12/20 00:23 04:18 04:18 WBC RBC Hgb 9.6 L Hct 30.9 L MCHC 31 L RDW 17.3 H MCV 81 L MCH 25 L Lymph % (Auto) Patrick % (Auto) Patrick # Eos # Lymph # (Auto) Patrick # (Auto) Eos # (Auto) Seg Neutrophils % Seg Neuts % (Manual) Baso # (Auto) Lymphocytes % (Manual) Monocytes % (Manual) Eosinophils % (Manual) Basophils % (Manual) Seg Neutrophils # Seg Neutrophils # Man Lymphocytes # (Manual) Monocytes # (Manual) Eosinophils # (Manual) Nucleated RBC % Basophils # (Manual) APTT Heparin Anti-Xa Level ABG pH POC ABG pO2 ABG pO2 ABG HCO3 ABG O2 Saturation ABG Base Excess POC ABG pCO2 ABG Hemoglobin ABG Oxyhemoglobin ABG Glucose Oxyhemoglobin Sodium Potassium Chloride Carbon Dioxide BUN Creatinine 0.7 L 0.7 L Glucose 111 H 108 H POC Glucose Lactic Acid Calcium Phosphorus Magnesium AST ALT Lactate Dehydrogenase CK-MB (CK-2) C-Reactive Protein NT-Pro-B Natriuret Pep Total Protein Albumin 2.6 L Arterial Blood Glucose Urine WBC (Auto) 01/12/20 01/12/20 01/12/20 06:03 12:27 13:58 WBC RBC Hgb Hct MCHC RDW MCV MCH Lymph % (Auto) Patrick % (Auto) Patrick # Eos # Lymph # (Auto) Patrick # (Auto) Eos # (Auto) Seg Neutrophils % Seg Neuts % (Manual) Baso # (Auto) Lymphocytes % (Manual) Monocytes % (Manual) Eosinophils % (Manual) Basophils % (Manual) Seg Neutrophils # Seg Neutrophils # Man Lymphocytes # (Manual) Monocytes # (Manual) Eosinophils # (Manual) Nucleated RBC % Basophils # (Manual) APTT Heparin Anti-Xa Level ABG pH 7.453 H POC ABG pO2 76.6 L ABG pO2 ABG HCO3 ABG O2 Saturation ABG Base Excess POC ABG pCO2 ABG Hemoglobin 10.3 L ABG Oxyhemoglobin ABG Glucose 99 H Oxyhemoglobin Sodium Potassium Chloride Carbon Dioxide BUN Creatinine Glucose POC Glucose 128 H 121 H Lactic Acid Calcium Phosphorus Magnesium AST ALT Lactate Dehydrogenase CK-MB (CK-2) C-Reactive Protein NT-Pro-B Natriuret Pep Total Protein Albumin Arterial Blood Glucose 99 H Urine WBC (Auto) 01/12/20 01/13/20 01/13/20 18:24 12:01 17:46 WBC RBC Hgb Hct MCHC RDW MCV MCH Lymph % (Auto) Patrick % (Auto) Patrick # Eos # Lymph # (Auto) Patrick # (Auto) Eos # (Auto) Seg Neutrophils % Seg Neuts % (Manual) Baso # (Auto) Lymphocytes % (Manual) Monocytes % (Manual) Eosinophils % (Manual) Basophils % (Manual) Seg Neutrophils # Seg Neutrophils # Man Lymphocytes # (Manual) Monocytes # (Manual) Eosinophils # (Manual) Nucleated RBC % Basophils # (Manual) APTT Heparin Anti-Xa Level ABG pH POC ABG pO2 ABG pO2 ABG HCO3 ABG O2 Saturation ABG Base Excess POC ABG pCO2 ABG Hemoglobin ABG Oxyhemoglobin ABG Glucose Oxyhemoglobin Sodium Potassium Chloride Carbon Dioxide BUN Creatinine Glucose POC Glucose 119 H 107 H 124 H Lactic Acid Calcium Phosphorus Magnesium AST ALT Lactate Dehydrogenase CK-MB (CK-2) C-Reactive Protein NT-Pro-B Natriuret Pep Total Protein Albumin Arterial Blood Glucose Urine WBC (Auto) 01/13/20 01/14/20 01/14/20 20:40 00:10 05:33 WBC RBC Hgb Hct MCHC RDW MCV MCH Lymph % (Auto) Patrick % (Auto) Patrick # Eos # Lymph # (Auto) Patrick # (Auto) Eos # (Auto) Seg Neutrophils % Seg Neuts % (Manual) Baso # (Auto) Lymphocytes % (Manual) Monocytes % (Manual) Eosinophils % (Manual) Basophils % (Manual) Seg Neutrophils # Seg Neutrophils # Man Lymphocytes # (Manual) Monocytes # (Manual) Eosinophils # (Manual) Nucleated RBC % Basophils # (Manual) APTT Heparin Anti-Xa Level ABG pH POC ABG pO2 ABG pO2 65.3 L ABG HCO3 31.8 H ABG O2 Saturation 93.5 L ABG Base Excess 6.7 H POC ABG pCO2 ABG Hemoglobin 13.3 L ABG Oxyhemoglobin ABG Glucose Oxyhemoglobin 90.9 L Sodium Potassium Chloride Carbon Dioxide BUN Creatinine Glucose POC Glucose 111 H 111 H Lactic Acid Calcium Phosphorus Magnesium AST ALT Lactate Dehydrogenase CK-MB (CK-2) C-Reactive Protein NT-Pro-B Natriuret Pep Total Protein Albumin Arterial Blood Glucose Urine WBC (Auto) Allied health notes reviewed: nursing
[2020-01-14 17:19] LABS: Basophils % (Auto) 0.4 % (0.0-1.8); Eosinophils # (Auto) 0.2 K/mm3 (0.0-0.4); Eosinophils % (Auto) 2.8 % (0.0-4.3); Hematocrit 34.2 % (35.5-45.6); Hemoglobin 10.6 gm/dl (11.8-15.2); Lymphocytes # (Auto) 1.5 K/mm3 (1.2-5.4); Lymphocytes % (Auto) 17.5 % (13.4-35.0); Mean Corpuscular HGB Conc 31 % (32-34); Mean Corpuscular Volume 83 fl (84-94); Monocytes # (Auto) 0.6 K/mm3 (0.0-0.8); Monocytes % (Auto) 7.4 % (0.0-7.3); Platelet Count 311 K/mm3 (140-440); Red Blood Count 4.12 M/mm3 (3.65-5.03); Red Cell Distribution Width 18.3 % (13.2-15.2)
[2020-01-14 17:25] LABS: Blood Urea Nitrogen 10 mg/dL (9-20); Calcium 9.4 mg/dL (8.4-10.2); Hemolysis Index 2
[2020-01-14 17:26] LABS: BUN/Creatinine Ratio 17
[2020-01-14] MEDS: TAMSULOSIN 0.4 MG CAP PO SCH (22:51)
[2020-01-14] MEDS: POLYETHYLENE GLYCOL 3350 17 GM POWDER PO SCH (22:52)
[2020-01-15] MEDS: METOPROLOL TARTRATE 25 MG TAB PO SCH ×4 (04:54→19:39)
--- NOTE | 2020-01-15 08:30 | Progress Note ---
Assessment and Plan Assessment and plan: -Partial SBO, resolved -Acute LLL PE -Acute RLE DVT -Persistent fevers; secondary to sepsis and acute PE/DVT -Severe sepsis; secondary to bilateral pneumonia, persistent fevers -Acute hypoxemic respiratory failure, on vent unable to wean -Bilateral pneumonia, community acquired, -Aspiration Pneumonia -Sustained SVT, on amiodarone -Acute on chronic systolic congestive heart failure -History of cerebrovascular accident. -Tobacco use disorder -Alcohol abuse with DT -Acute chronic obstructive pulmonary disease exacerbation. -Hypertension and hypertensive urgency at presentation. -History of arthritis. -Paroxysmal atrial fibrillation -Leukocytosis with possible sepsis. -Lactic acidosis. -Bleeding from ET tube -Oropharyngeal dysphagia -S/P Knee surgery -History of peptic Ulcer Surgery -DVT prophylaxis COVID-19 test; 11/24/2019; negative 11/26/2019; negative Plan Continue ventilatory support - Now s/p trach and PEG Aspiration precautions Continue to adjust amiodarone and metoprolol for suppression of paroxysmal atrial fibrillation. Continue anticoagulation s/p vancomycin and zosyn BC 03/28 - coag negative staph ?contaminant. Sputum cultures pending. Low-dose Lasix as needed DVT/GI prophy Heparin/Protonix Plan of care reviewed with the patient's nurse GS evaluated partial SBO Closely monitor the patient and adjust management as needed The high probability of a clinically significant, sudden or life threatening deterioration of the [Respiratory, cardiovascular & neurological] system(s) required my full and direct attention, intervention and personal management. The aggregate critical care time was [32] minutes without overlap. Time includes spent on [x] Data Review and interpretation [x] Patient assessment and monitoring of vital signs [x] Documentation [x] Medication orders and management 01/05; Pt stable. NGT output 650cc over 24 hours, bilious. No f/c, WBC within normal limits. cont NG suction and cont to hold TF 01/06: Abs series - mild improvement in small bowel distension in mid abdomen, normal gas/stool pattern in colon. NGT in duodenum. Continue to hold tube feeding, maintain NG tube with low intermittent suction. Patient's was updated by phone. Continue to provide supportive care and monitor clinically. 01/07: +BMs today and NGT/PEG output appears more gastric today. Plan to clamp NGT, if tolerates start TF from tomorrow. cont supportive care. 01/08; Gastric output decreased over last 24 hours. NGT has been clamped x 24 hours. plan to dc NGT and to start TTF via PEG - vital HF @10cc/hr 01/09: clinically stable, tolerating TF. monitor BMP, wean off from vent as tolerated clinically stable, on TF. wean off vent as tolerated 01/11: wean off from vent, cont to monitor, on TF 01/12: wean off from vent, cont to monitor, on TF. need placement - unfunded 01/13; remains on ventilatory support, unable to wean, DC planning possible LTAC, unfunded 01/14; patient of ventilatory support, T-piece tracheostomy on oxygen, LTAC placement per case management History Interval history: I have seen and examined the patient at the bedside this morning in [facility] Patient's chart and medications reviewed Patient is off ventilator support T-piece and T-tube Patient is in mild distress Vital signs noted Hospitalist Physical - Constitutional Vitals: Temp Pulse Resp BP Pulse Ox 99.8 F H 101 H 25 H 115/86 97 01/15/20 03:20 01/15/20 07:00 01/15/20 07:00 01/15/20 07:00 01/15/20 07:00 General appearance: Present: well-nourished, obese, other (Tracheostomy on vent) - EENT Eyes: Present: PERRL. Absent: scleral icterus ENT: other (Tracheostomy on T-piece) - Neck Neck: Present: supple, normal ROM - Respiratory Respiratory effort: normal Respiratory: bilateral: diminished, rhonchi, negative: rales, wheezing - Cardiovascular Rhythm: regular Heart Sounds: Present: S1 & S2 - Extremities Extremities: no ischemia, No edema - Abdominal General gastrointestinal: soft, non-tender, non-distended, normal bowel sounds - Integumentary Integumentary: Present: clear, warm - Psychiatric Psychiatric: appropriate mood/affect, cooperative - Neurologic Neurologic: CNII-XII intact, moves all extremities HEART Score - HEART Score Troponin: Troponin T < 0.010 ng/mL (0.00-0.029) 11/24/19 02:53 Results - Labs CBC & Chem 7: 01/14/20 16:14 01/14/20 16:14 Labs: Laboratory Last Values WBC 8.3 K/mm3 (4.5-11.0) 01/14/20 16:14 RBC 4.12 M/mm3 (3.65-5.03) 01/14/20 16:14 Hgb 10.6 gm/dl (11.8-15.2) L 01/14/20 16:14 Hct 34.2 % (35.5-45.6) L 01/14/20 16:14 MCV 83 fl (84-94) L 01/14/20 16:14 MCH 26 pg (28-32) L 01/14/20 16:14 MCHC 31 % (32-34) L 01/14/20 16:14 RDW 18.3 % (13.2-15.2) H 01/14/20 16:14 Plt Count 311 K/mm3 (140-440) 01/14/20 16:14 Lymph % (Auto) 17.5 % (13.4-35.0) 01/14/20 16:14 [place] % (Auto) 7.4 % (0.0-7.3) H 01/14/20 16:14 Eos % (Auto) 2.8 % (0.0-4.3) 01/14/20 16:14 Baso % (Auto) 0.4 % (0.0-1.8) 01/14/20 16:14 Lymph # (Auto) 1.5 K/mm3 (1.2-5.4) 01/14/20 16:14 [place] # (Auto) 0.6 K/mm3 (0.0-0.8) 01/14/20 16:14 Eos # (Auto) 0.2 K/mm3 (0.0-0.4) 01/14/20 16:14 Baso # (Auto) 0.0 K/mm3 (0.0-0.1) 01/14/20 16:14 Add Manual Diff Complete 12/19/19 11:32 Total Counted 100 12/19/19 11:32 Seg Neutrophils % 71.9 % (40.0-70.0) H 01/14/20 16:14 Seg Neuts % (Manual) 82.0 % (40.0-70.0) H 12/19/19 11:32 Band Neutrophils % 0 % 12/19/19 11:32 Lymphocytes % (Manual) 10.0 % (13.4-35.0) L 12/19/19 11:32 Reactive Lymphs % (Man) 0 % 12/19/19 11:32 Monocytes % (Manual) 6.0 % (0.0-7.3) 12/19/19 11:32 Eosinophils % (Manual) 2.0 % (0.0-4.3) 12/19/19 11:32 Basophils % (Manual) 0 % (0.0-1.8) 12/19/19 11:32 Metamyelocytes % 0 % 12/19/19 11:32 Myelocytes % 0 % 12/19/19 11:32 Promyelocytes % 0 % 12/19/19 11:32 Blast Cells % 0 % 12/19/19 11:32 Nucleated RBC % 1.0 % (0.0-0.9) H 12/19/19 11:32 Seg Neutrophils # 6.0 K/mm3 (1.8-7.7) 01/14/20 16:14 Seg Neutrophils # Man 12.0 K/mm3 (1.8-7.7) H 12/19/19 11:32 Band Neutrophils # 0.0 K/mm3 12/19/19 11:32 Lymphocytes # (Manual) 1.5 K/mm3 (1.2-5.4) 12/19/19 11:32 Abs React Lymphs (Man) 0.0 K/mm3 12/19/19 11:32 Monocytes # (Manual) 0.9 K/mm3 (0.0-0.8) H 12/19/19 11:32 Eosinophils # (Manual) 0.3 K/mm3 (0.0-0.4) 12/19/19 11:32 Basophils # (Manual) 0.0 K/mm3 (0.0-0.1) 12/19/19 11:32 Metamyelocytes # 0.0 K/mm3 12/19/19 11:32 Myelocytes # 0.0 K/mm3 12/19/19 11:32 Promyelocytes # 0.0 K/mm3 12/19/19 11:32 Blast Cells # 0.0 K/mm3 12/19/19 11:32 WBC Morphology Not Reportable 12/19/19 11:32 Hypersegmented Neuts Not Reportable 12/19/19 11:32 Hyposegmented Neuts Not Reportable 12/19/19 11:32 Hypogranular Neuts Not Reportable 12/19/19 11:32 Smudge Cells Not Reportable 12/19/19 11:32 Toxic Granulation Not Reportable 12/19/19 11:32 Toxic Vacuolation Not Reportable 12/19/19 11:32 Dohle Bodies Not Reportable 12/19/19 11:32 Pelger-Huet Anomaly Not Reportable 12/19/19 11:32 Hector Rods Not Reportable 12/19/19 11:32 Platelet Estimate Consistent w auto 12/19/19 11:32 Clumped Platelets Not Reportable 12/19/19 11:32 Plt Clumps, EDTA Not Reportable 12/19/19 11:32 Large Platelets Not Reportable 12/19/19 11:32 Giant Platelets Not Reportable 12/19/19 11:32 Platelet Satelliting Not Reportable 12/19/19 11:32 Plt Morphology Comment Not Reportable 12/19/19 11:32 RBC Morphology Not Reportable 12/19/19 11:32 Dimorphic RBCs Not Reportable 12/19/19 11:32 Polychromasia Not Reportable 12/19/19 11:32 Hypochromasia Few 12/19/19 11:32 Poikilocytosis Not Reportable 12/19/19 11:32 Anisocytosis 1+ 12/19/19 11:32 Microcytosis Few 12/19/19 11:32 Macrocytosis Few 12/19/19 11:32 Spherocytes Not Reportable 12/19/19 11:32 Pappenheimer Bodies Not Reportable 12/19/19 11:32 Sickle Cells Not Reportable 12/19/19 11:32 Target Cells Not Reportable 12/19/19 11:32 Tear Drop Cells Not Reportable 12/19/19 11:32 Ovalocytes Not Reportable 12/19/19 11:32 Helmet Cells Not Reportable 12/19/19 11:32 Gottlieb-[place] Bodies Not Reportable 12/19/19 11:32 Mildred Rings Not Reportable 12/19/19 11:32 [place] Cells Not Reportable 12/19/19 11:32 Bite Cells Not Reportable 12/19/19 11:32 Crenated Cell Not Reportable 12/19/19 11:32 Elliptocytes Not Reportable 12/19/19 11:32 Acanthocytes (Spur) Not Reportable 12/19/19 11:32 Rouleaux Not Reportable 12/19/19 11:32 Hemoglobin C Crystals Not Reportable 12/19/19 11:32 Schistocytes Not Reportable 12/19/19 11:32 Malaria parasites Not Reportable 12/19/19 11:32 Clifford Bodies Not Reportable 12/19/19 11:32 Hem Pathologist Commnt No 12/19/19 11:32 PT 13.8 Sec. (12.2-14.9) 12/21/19 10:13 INR 1.05 (0.87-1.13) 12/21/19 10:13 APTT 23.9 Sec. (24.2-36.6) L 12/21/19 10:13 Heparin Anti-Xa Level 0.16 U.I./ml (0.3-0.7) L 01/04/20 04:26 ABG pH 7.449 pH Units (7.350-7.450) 01/13/20 20:40 POC ABG pCO2 45.6 mmHg (32.0-48.0) 01/12/20 13:58 ABG pCO2 46.9 mm Hg 01/13/20 20:40 POC ABG pO2 76.6 mmHg (83-108) L 01/12/20 13:58 ABG pO2 65.3 mm Hg (80.0-90.0) L 01/13/20 20:40 POC ABG HCO3 31.2 01/12/20 13:58 ABG HCO3 31.8 mmol/L (20.0-26.0) H 01/13/20 20:40 ABG O2 Saturation 93.5 % (95.0-99.0) L 01/13/20 20:40 ABG O2 Content 17.0 (0.0-44) 01/13/20 20:40 POC ABG Base Excess 6.5 01/12/20 13:58 ABG Base Excess 6.7 mmol/L (-2.0-3.0) H 01/13/20 20:40 ABG Hemoglobin 13.3 gm/dl (14.0-18.0) L 01/13/20 20:40 ABG Oxyhemoglobin 84 (94-98) L 12/22/19 03:22 ABG Carboxyhemoglobin 2.2 % (0.0-5.0) 01/13/20 20:40 ABG Methemoglobin 0.6 % (0.0-1.5) 01/13/20 20:40 ABG Sodium 136.8 mmol/L (136.0-145.0) 01/12/20 13:58 ABG Potassium 3.7 mmol/L (3.40-4.50) 01/12/20 13:58 ABG Chloride 103.0 mmol/L (98-107) 01/12/20 13:58 ABG Glucose 99 mg/dL (65-95) H 01/12/20 13:58 Oxyhemoglobin 90.9 % (95.0-99.0) L 01/13/20 20:40 Carboxyhemoglobin 0.7 (0.5-1.5) 12/22/19 03:22 FiO2 35 % 01/13/20 20:40 Sodium 143 mmol/L (137-145) 01/14/20 16:14 Potassium 3.6 mmol/L (3.6-5.0) 01/14/20 16:14 Chloride 103.0 mmol/L (98-107) 01/14/20 16:14 Carbon Dioxide 31 mmol/L (22-30) H 01/14/20 16:14 Anion Gap 13 mmol/L 01/14/20 16:14 BUN 10 mg/dL (9-20) 01/14/20 16:14 Creatinine 0.6 mg/dL (0.8-1.3) L 01/14/20 16:14 Estimated GFR > 60 ml/min 01/14/20 16:14 BUN/Creatinine Ratio 17 % 01/14/20 16:14 Glucose 131 mg/dL (75-100) H 01/14/20 16:14 POC Glucose 159 mg/dL (70-105) H 01/15/20 05:35 Lactic Acid 2.50 mmol/L (0.7-2.0) H* 11/24/19 10:37 Magnesium 2.60 mg/dL (1.7-2.3) H 12/07/19 12:41 Calcium 9.4 mg/dL (8.4-10.2) 01/14/20 16:14 Ferritin 84.4 ng/mL (30.0-300.0) 11/24/19 04:53 Direct Bilirubin < 0.2 mg/dL (0-0.2) 12/08/19 03:55 Indirect Bilirubin 0.2 mg/dL 12/08/19 03:55 Phosphorus 3.40 mg/dL (2.5-4.5) 01/12/20 12:01 Total Bilirubin 0.50 mg/dL (0.1-1.2) 01/12/20 00:23 Total Creatine Kinase 141 units/L (55-170) 11/24/19 02:53 CK-MB (CK-2) 4.3 ng/mL (0.0-4.0) H 11/24/19 02:53 AST 16 units/L (5-40) 01/12/20 00:23 ALT 22 units/L (7-56) 01/12/20 00:23 CK-MB (CK-2) Rel Index 3.0 (0-4) 11/24/19 02:53 Alkaline Phosphatase 59 units/L (35-129) 01/12/20 00:23 Troponin T < 0.010 ng/mL (0.00-0.029) 11/24/19 02:53 C-Reactive Protein 8.50 mg/dL (0.00-1.30) H 12/01/19 12:16 Lactate Dehydrogenase 228 units/L (91-180) H 12/19/19 04:45 NT-Pro-B Natriuret Pep 3866 pg/mL (0-900) H 01/01/20 10:40 Total Protein 6.3 g/dL (6.3-8.2) 01/12/20 00:23 Albumin 2.6 g/dL (3.9-5) L 01/12/20 00:23 Albumin/Globulin Ratio 0.7 % 01/12/20 00:23 Procalcitonin 0.76 ng/mL (<0.15) 01/01/20 10:40 Arterial Blood Glucose 99 mg/dL (65-95) H 01/12/20 13:58 Arterial Blood Ionized Calcium 4.8 mg/dL (4.6-5.3) 01/12/20 13:58 Urine Color Cecy (Yellow) 12/31/19 18:04 Urine Turbidity Clear (Clear) 12/31/19 18:04 Urine pH 5.0 (5.0-7.0) 12/31/19 18:04 Ur Specific [place] 1.023 (1.003-1.030) 12/31/19 18:04 Urine Protein <15 mg/dl mg/dL (Negative) 12/31/19 18:04 Urine Glucose (UA) Neg mg/dL (Negative) 12/31/19 18:04 Urine Ketones Neg mg/dL (Negative) 12/31/19 18:04 Urine Blood Neg (Negative) 12/31/19 18:04 Urine Bacteria (Auto) 1+ /HPF (Negative) 12/03/19 06:03 Urine Nitrite Neg (Negative) 12/31/19 18:04 Urine Bilirubin Neg (Negative) 12/31/19 18:04 Urine Urobilinogen 4.0 mg/dL (<2.0) 12/31/19 18:04 Ur Leukocyte Esterase Neg (Negative) 12/31/19 18:04 Urine WBC (Auto) 2.0 /HPF (0.0-6.0) 12/31/19 18:04 Urine RBC (Auto) 3.0 /HPF (0.0-6.0) 12/31/19 18:04 U Epithel Cells (Auto) 2.0 /HPF (0-13.0) 12/31/19 18:04 Urine Mucus 1+ /HPF 12/31/19 18:04 Vancomycin Trough 14.2 ug/mL (5.0-20.0) 12/13/19 15:01 Coronavirus (PCR) Negative (Negative) 12/29/19 10:07 - Diagnostic Impressions Diagnostic Impressions: Echocardiogram 11/29/19 07:37 Transthoracic Echocardiogram Indication: CHF BP: 116/72 HR: 33 Conclusions *The study is technically limited due to poor acoustic windows. *Global left ventricular systolic function is normal. *The estimated ejection fraction is 50-55%. *Mild concentric left ventricular hypertrophy is observed. *There is trace of mitral regurgitation. *There is mild tricuspid regurgitation. Findings Procedure Info: The study quality is poor. The study is technically limited due to poor acoustic windows. The study is technically limited due to patient body habitus. Left Ventricle: The left ventricular chamber size is normal. Mild concentric left ventricular hypertrophy is observed. Global left ventricular systolic function is normal. The estimated ejection fraction is 50-55%. Left Atrium: The left atrial chamber size is normal. Right Ventricle: The right ventricular cavity size is normal. Right Atrium: The right atrial cavity size is normal. Aortic Valve: The aortic valve leaflets are moderately thickened. There is trace of aortic regurgitation. There is no evidence of aortic stenosis. Mitral Valve: The mitral valve leaflets are mildly thickened. There is trace of mitral regurgitation. There is no evidence of mitral stenosis. Tricuspid Valve: There is mild tricuspid regurgitation. No pulmonary hypertension is noted. Pulmonic Valve: There is trace pulmonic regurgitation. Pericardium: There is no pericardial effusion. Aorta: There is no dilatation of the aortic root. Venous: The inferior vena cava appears normal in size. Contrast: Definity was used to optimize study. Intravenous contrast was used to enhance endocardial border definition. Measurements Chambers 2D Name Value Normal Range Ao root diameter (2D) 3.4 cm (2 - 3.7) Aortic Valve Name Value Normal Range AV Vmax 0.98 m/sec - AV VTI 16.76 cm - AV peak gradient 3.83 mmHg - AV mean gradient 2.57 mmHg - LVOT diameter 3.11 cm - LVOT Vmax 0.68 m/sec - LVOT VTI 11.52 cm - LVOT peak gradient 1.84 mmHg - LVOT mean gradient 1.27 mmHg - SV LVOT 87.31 ml - MALOU (continuity Vmax) 5.24 cm2 - MALOU (continuity VTI) 5.21 cm2 - Tricuspid Valve Name Value Normal Range IVC diameter 2.24 cm (1.2 - 2.3) Hoffman/IV: Voiding Method Condom Catheter IV Catheter Type [Right Hand] INT / Saline Lock IV Catheter Type [Right Upper INT / Saline Lock arm] IV Catheter Type [Left Upper Mid-line arm] IV Catheter Type [Left Forearm INT / Saline Lock ] IV Catheter Type [Left Hand] INT / Saline Lock IV Catheter Type [Left Wrist] INT / Saline Lock IV Catheter Type [Right Peripheral IV Antecubital] Active Medications - Current Medications Current Medications: Generic Name Dose Route Start Last Admin Trade Name Freq PRN Reason Stop Dose Admin Acetaminophen 650 mg 12/31/19 11:43 01/14/20 08:27 Tylenol FEEDTUBE 650 mg Q6H PRN Administration Pain, Mild (1-3) Amiodarone HCl 200 mg 12/04/19 14:00 01/14/20 22:52 Cordarone PO 200 mg BID CAR Administration Lipase/Protease/Amylase 1 each 01/09/20 12:01 Pancrepetr Bet[place] 10,500 Unit FEEDTUBE PRN PRN For Clogged Feeding Tube Apixaban 5 mg 01/11/20 22:00 01/14/20 22:51 Eliquis PO 5 mg Q12HR CAR Administration Protocol Bisacodyl 10 mg 01/06/20 13:00 01/14/20 09:08 Dulcolax MA 10 mg DAILY CAR Administration Docusate Sodium 100 mg 12/02/19 22:00 01/14/20 22:49 Colace FEEDTUBE 100 mg BID CAR Administration Famotidine 20 mg 01/12/20 10:00 01/14/20 22:51 Pepcid PO 20 mg BID CAR Administration Glycopyrrolate 2 mg 01/12/20 22:00 01/14/20 23:37 Glycopyrrolate PO Not Given BID [facility] Haloperidol Lactate 5 mg 12/25/19 10:00 01/08/20 17:00 Haldol IV 5 mg Q6H PRN Administration Unrespon. to mult. doses BZD's Lorazepam 2 mg 12/25/19 10:00 01/08/20 17:00 Ativan IV 2 mg Q6H PRN Administration AGITATION Magnesium Hydroxide 30 ml 01/14/20 13:35 Milk Of Magnesia PO QDAY PRN Constip unreliev by MOM/or NPO Metoprolol Tartrate 5 mg 01/11/20 08:00 01/14/20 02:32 Metoprolol IV 5 mg Q6H PRN Administration SEE INSTRUCTIONS Metoprolol Tartrate 25 mg 01/11/20 13:00 01/15/20 06:06 Metoprolol PO 25 mg Q6H CAR Administration Morphine Sulfate 2 mg 01/06/20 15:41 01/14/20 22:52 Morphine IV 2 mg Q4H PRN Administration Pain, Moderate (4-6) Ondansetron HCl 4 mg 01/05/20 14:37 01/05/20 16:18 Zofran IV 4 mg Q8H PRN Administration Nausea And Vomiting Polyethylene Glycol 17 gm 12/04/19 22:00 01/14/20 22:52 Miralax 3350 PO 17 gm QHS CAR Administration Quetiapine Fumarate 300 mg 01/13/20 22:00 01/14/20 22:51 Seroquel PO 300 mg BID CAR Administration Scopolamine 1 each 01/07/20 20:00 01/07/20 21:08 Transderm-Scop TD 1 each Q72HR CAR Administration Simple Syrup 15 ml 01/09/20 12:01 Simple Syrup FEEDTUBE PRN PRN Hypoglycemia Simple Syrup 30 ml 01/09/20 12:01 Simple Syrup FEEDTUBE PRN PRN Hypoglycemia Sodium Bicarbonate 325 mg 01/09/20 12:01 Sodium Bicarbonate FEEDTUBE PRN PRN For Clogged Feeding Tube Sodium Chloride 10 ml 11/24/19 10:00 01/14/20 22:52 Sodium Chloride Flush Syringe 10 Ml IV 10 ml BID CAR Administration Tamsulosin HCl 0.8 mg 12/20/19 22:00 01/14/20 22:51 Flomax PO 0.8 mg QHS CAR Administration Nutrition/Malnutrition Assess - Dietary Evaluation Nutrition/Malnutrition Findings: Nutrition Notes Start: 11/24/19 12:22 Freq: Status: Active Protocol: Document 01/13/20 12:54 AL (Rec: 01/13/20 13:02 AL [email or web address]) Co-Sign 01/13/20 12:54 MK Nutrition Notes Initial or Follow up Reassessment Current Diagnosis Coronary Artery Disease,Heart Failure,Respiratory Failure, Stroke,Hyperlipidemia Other Pertinent Diagnosis Partial SBO, pneu Current Diet Vital HP at 70 ml/hr (goal rate) Labs/Tests Reviewed Pertinent Medications Reviewed Height 6 ft 2 in Weight 120 kg Desmet Body Weight (kg) 86.36 BMI 34.0 Weight Status Obese Subjective/Other Information Per RN, TF was at 50 ml/hr, but was stopped this morning due to an issue with trach line. RN will try to restart TF. Percent of energy/protein needs met: 0%/0% Burn Absent Trauma Absent GI Symptoms None Current % PO Negligible Minimum of two criteria No Fluid Accumulation Mild (non-severe) #1 Nutrition Diagnosis Inadequate oral intake Diagnosis Progress(for reassessment Continues documentation) Is patient on ventilator? Yes Is Patient Ambulatory and/or Out of Bed No REE-([facility]-confined to bed) 2482.308 Kcal/Kg value to use for calculation 14 Approximate Energy Requirements Using 1680 kcal/Kg Calculation Used for Recommendations Kcal/kg Additional Notes Pro needs 2g/kg IBW: 173g/day Fluid needs 1ml/kcal Nutrition Intervention Change Diet Order: TF Nutrition Support: Vital HP at 70ml/hr (goal rate ) Flush 50ml q4h or per MD Kcal 1,680 Protein (gm) 147 Fluid (mL) 1,404 Goal #1 Restart TF Anticipated Discharge Needs: unable to determine Follow-Up By: 01/15/20 Additional Comments F/U for TF restart
[2020-01-15] MEDS: DOCUSATE SODIUM 100 MG/10 ML ORAL LIQD FEEDTUBE SCH ×2 (09:49→21:54)
[2020-01-15] MEDS: GLYCOPYRROLATE 2 MG TAB PO SCH ×2 (09:50→21:58)
[2020-01-15] MEDS: AMIODARONE 200 MG TAB PO SCH ×2 (09:50→21:56)
[2020-01-15] MEDS: QUEtiapine 100 MG TAB PO SCH ×2 (09:50→21:59)
[2020-01-15] MEDS: FAMOTIDINE 20 MG TAB PO SCH ×2 (09:50→21:59)
[2020-01-15] MEDS: APIXABAN 5 MG TAB PO SCH ×2 (09:50→21:56)
--- NOTE | 2020-01-15 11:34 | Progress Note ---
Assessment and Plan Atrial fibrillation, paroxysmal on amiodarone and metoprolol currently in sinus rhythm Ischemic Cardiomyopathy re-echo this presentation reports an LVEF 40-45%. echo 08/2018: decreased LVEF 20-25%. Hx of CAD [facility] 12/2018: mild in-stent restenosis. No significant residual disease. Multifocal pneumonia negative COVID-19 test x 3 Chronic Respiratory failure s/p trach History of COPD Acute PE/DVT -initiated on Eliquis Anemia Partial SBO vs ileus Recommendations: Continue amiodarone and metoprolol for paroxysmal atrial fibrillation. Otherwise, conservative cardiac management. Subjective Date of service: 01/15/20 Principal diagnosis: Ac hypoxemic resp failure; Pneumonia; PUI COVID-19; CHF; COPD; HTN Interval history: No interval cardiac changes. Sinus rhythm on telemetry. Objective Vital Signs Temp Pulse Pulse Resp Resp BP Pulse Ox 01/15/20 11:00 101 H 18 114/73 91 01/15/20 10:45 106 H 19 138/99 90 01/15/20 10:31 113 H 43 H 138/99 89 01/15/20 10:15 111 H 29 H 138/99 100 01/15/20 10:00 121 H 20 138/99 98 01/15/20 09:45 129 H 30 H 139/105 96 01/15/20 09:31 129 H 21 139/105 91 01/15/20 09:15 123 H 30 H 139/105 99 01/15/20 09:01 121 H 29 H 139/105 100 01/15/20 08:45 125 H 29 H 109/88 89 01/15/20 08:31 121 H 21 109/88 91 01/15/20 08:15 106 H 25 H 109/88 94 01/15/20 08:01 105 H 21 109/88 96 01/15/20 08:00 120 H 120 H 21 94 01/15/20 07:45 107 H 22 115/86 96 01/15/20 07:31 102 H 21 115/86 97 01/15/20 07:15 100 H 21 115/86 98 01/15/20 07:00 101 H 25 H 115/86 97 01/15/20 06:45 101 H 34 H 112/86 95 01/15/20 06:31 100 H 26 H 112/86 95 01/15/20 06:15 99 H 18 112/86 98 10/23/20 06:06 120 H 01/15/20 06:01 114 H 28 H 112/86 95 01/15/20 05:45 124 H 22 114/73 96 01/15/20 05:31 110 H 19 114/73 97 01/15/20 05:15 121 H 19 114/73 95 01/15/20 05:00 124 H 22 114/73 96 01/15/20 04:54 140 H 120/68 01/15/20 04:45 124 H 23 120/68 98 01/15/20 04:31 131 H 21 120/68 97 01/15/20 04:15 116 H 19 120/68 95 01/15/20 04:01 123 H 20 120/68 95 01/15/20 04:00 134 H 120 H 21 94 01/15/20 03:59 96 01/15/20 03:45 128 H 20 124/73 96 01/15/20 03:31 103 H 17 124/73 96 01/15/20 03:20 99.8 F H 01/15/20 03:15 114 H 17 124/73 94 01/15/20 03:00 110 H 17 124/73 94 01/15/20 02:45 102 H 23 121/78 96 01/15/20 02:31 92 H 17 121/78 95 01/15/20 02:15 100 H 20 121/78 96 01/15/20 02:00 98 H 23 121/78 97 01/15/20 01:45 88 15 136/87 95 01/15/20 01:31 88 17 136/87 95 01/15/20 01:15 89 17 117/75 95 01/15/20 01:00 91 H 16 117/75 95 01/15/20 00:45 92 H 16 136/87 95 01/15/20 00:31 94 H 17 136/87 95 01/15/20 00:15 95 H 16 136/87 95 01/15/20 00:04 96 H 136/87 95 01/15/20 00:00 96 H 108 H 21 136/87 94 01/14/20 23:45 104 H 24 136/95 95 01/14/20 23:31 107 H 25 H 136/95 93 01/14/20 23:15 101 H 23 136/95 96 01/14/20 23:14 98.4 F 01/14/20 23:00 104 H 26 H 136/95 94 01/14/20 22:45 100 H 26 H 133/88 97 01/14/20 22:41 100 H 25 H 132/96 98 01/14/20 22:31 108 H 25 H 132/96 96 01/14/20 22:15 126 H 23 132/96 94 01/14/20 22:08 121 H 24 132/96 95 01/14/20 22:00 114 H 23 133/88 95 01/14/20 21:45 124 H 22 132/96 94 01/14/20 21:31 117 H 24 132/96 96 01/14/20 21:15 124 H 29 H 132/96 96 01/14/20 21:09 126 H 132/96 96 01/14/20 21:00 118 H 29 H 132/96 95 01/14/20 20:45 115 H 27 H 141/94 96 01/14/20 20:31 124 H 31 H 141/94 96 01/14/20 20:15 138 H 27 H 141/94 97 01/14/20 20:00 108 H 108 H 21 141/94 94 01/14/20 19:52 98.7 F 01/14/20 19:45 121 H 25 H 145/98 95 01/14/20 19:31 110 H 25 H 145/98 93 01/14/20 19:15 122 H 23 94 01/14/20 19:00 121 H 18 154/90 95 01/14/20 18:46 131 H 24 157/94 99 01/14/20 18:30 133 H 28 H 157/94 93 01/14/20 18:23 124 H 147/94 01/14/20 18:15 123 H 23 148/92 95 01/14/20 18:00 122 H 23 147/94 96 01/14/20 17:45 102 H 25 H 148/92 92 01/14/20 17:30 100 H 29 H 148/92 95 01/14/20 17:15 99 H 20 139/91 96 01/14/20 17:01 100 H 26 H 139/91 96 01/14/20 16:45 93 H 18 127/86 97 01/14/20 16:30 95 H 24 127/86 93 01/14/20 16:26 98 H 130/76 94 01/14/20 16:15 97 H 24 130/76 91 01/14/20 16:00 98.6 F 96 H 96 H 25 H 26 H 130/76 97 01/14/20 15:45 101 H 18 162/105 94 01/14/20 15:30 106 H 23 162/105 92 01/14/20 15:29 107 H 181/113 01/14/20 15:15 106 H 21 181/113 92 01/14/20 15:01 115 H 25 H 181/113 92 01/14/20 14:45 101 H 22 133/96 90 01/14/20 14:30 105 H 27 H 133/96 92 01/14/20 14:15 104 H 21 117/82 97 01/14/20 14:00 94 H 22 117/82 98 01/14/20 13:45 95 H 21 122/79 96 01/14/20 13:30 95 H 23 122/79 95 01/14/20 13:15 95 H 22 119/80 95 01/14/20 13:03 96 H 119/80 95 01/14/20 13:00 94 H 24 119/80 96 01/14/20 12:45 97 H 21 119/80 100 01/14/20 12:30 87 17 119/80 99 01/14/20 12:15 96 H 23 120/84 99 01/14/20 12:00 97.7 F 90 94 H 19 26 H 120/84 100 01/14/20 11:45 99 H 21 110/75 99 Pulse Ox 01/15/20 11:00 01/15/20 10:45 01/15/20 10:31 01/15/20 10:15 01/15/20 10:00 01/15/20 09:45 01/15/20 09:31 01/15/20 09:15 01/15/20 09:01 01/15/20 08:45 01/15/20 08:31 01/15/20 08:15 01/15/20 08:01 01/15/20 08:00 01/15/20 07:45 01/15/20 07:31 01/15/20 07:15 01/15/20 07:00 01/15/20 06:45 01/15/20 06:31 01/15/20 06:15 01/15/20 06:06 01/15/20 06:01 01/15/20 05:45 01/15/20 05:31 01/15/20 05:15 01/15/20 05:00 01/15/20 04:54 01/15/20 04:45 01/15/20 04:31 01/15/20 04:15 01/15/20 04:01 01/15/20 04:00 01/15/20 03:59 96 01/15/20 03:45 01/15/20 03:31 01/15/20 03:20 01/15/20 03:15 01/15/20 03:00 01/15/20 02:45 01/15/20 02:31 01/15/20 02:15 01/15/20 02:00 01/15/20 01:45 01/15/20 01:31 01/15/20 01:15 01/15/20 01:00 01/15/20 00:45 01/15/20 00:31 01/15/20 00:15 01/15/20 00:04 01/15/20 00:00 01/14/20 23:45 01/14/20 23:31 01/14/20 23:15 01/14/20 23:14 01/14/20 23:00 01/14/20 22:45 01/14/20 22:41 01/14/20 22:31 01/14/20 22:15 01/14/20 22:08 01/14/20 22:00 01/14/20 21:45 01/14/20 21:31 01/14/20 21:15 01/14/20 21:09 96 01/14/20 21:00 01/14/20 20:45 01/14/20 20:31 01/14/20 20:15 01/14/20 20:00 01/14/20 19:52 01/14/20 19:45 01/14/20 19:31 01/14/20 19:15 01/14/20 19:00 01/14/20 18:46 01/14/20 18:30 01/14/20 18:23 01/14/20 18:15 01/14/20 18:00 01/14/20 17:45 01/14/20 17:30 01/14/20 17:15 01/14/20 17:01 01/14/20 16:45 01/14/20 16:30 01/14/20 16:26 01/14/20 16:15 01/14/20 16:00 01/14/20 15:45 01/14/20 15:30 01/14/20 15:29 01/14/20 15:15 01/14/20 15:01 01/14/20 14:45 01/14/20 14:30 01/14/20 14:15 01/14/20 14:00 01/14/20 13:45 01/14/20 13:30 01/14/20 13:15 01/14/20 13:03 96 01/14/20 13:00 01/14/20 12:45 01/14/20 12:30 01/14/20 12:15 01/14/20 12:00 01/14/20 11:45 - Physical Examination General: Other (awake, s/p trach) HEENT: Positive: PERRL Cardiac: Positive: Reg Rate and Rhythm - Labs and Meds CBC 01/14/20 Range/Units 16:14 WBC 8.3 (4.5-11.0) K/mm3 RBC 4.12 (3.65-5.03) M/mm3 Hgb 10.6 L (11.8-15.2) gm/dl Hct 34.2 L (35.5-45.6) % Plt Count 311 (140-440) K/mm3 Lymph # (Auto) 1.5 (1.2-5.4) K/mm3 [place] # (Auto) 0.6 (0.0-0.8) K/mm3 Eos # (Auto) 0.2 (0.0-0.4) K/mm3 Baso # (Auto) 0.0 (0.0-0.1) K/mm3 Comprehensive Metabolic Panel 01/14/20 Range/Units 16:14 Sodium 143 (137-145) mmol/L Potassium 3.6 (3.6-5.0) mmol/L Chloride 103.0 (98-107) mmol/L Carbon Dioxide 31 H (22-30) mmol/L BUN 10 (9-20) mg/dL Creatinine 0.6 L (0.8-1.3) mg/dL Glucose 131 H (75-100) mg/dL Calcium 9.4 (8.4-10.2) mg/dL - Allied health notes Allied health notes reviewed: nursing
--- NOTE | 2020-01-15 13:35 | Progress Note ---
Assessment and Plan Acute hypoxemic respiratory failure Bilateral pneumonia, community acquired. Acute LLL branch P.E. Acute DVT Person under investigation for COVID-19 infection. Acute congestive heart failure exacerbation. History of cerebrovascular accident. Acute chronic obstructive pulmonary disease exacerbation. Hypertension and hypertensive urgency at presentation. History of arthritis. Leukocytosis. Lactic acidosis. Oropharyngeal dysphagia - asked RT again to downsize trach tube - will try capping with BIPAP post trach downsize to improve work of breathing - await full swallow evaluation (MBS ordered) - keep on RTC t-piece as tolerated for now - prn ABG's at this time - continue Robinul TID - continue care as below otherwise; - continue Apixaban for VTE - continue scopolamine patch for secretions - continue seroquel for anxiolysis / delirium - COVID isolation per facility protocol - prn diuresis while following electrolytes / I's & O's - continue to wean oxygen for O2 sat's > 92% - continue bronchodilators with routine trach care and pulmonary hygiene per RT - aspiration precautions, HOB >40 - continue to wean per pulmonary driven protocols - continue prn analgesia per pain score - follow clinically re: fever curves / trend WBC - Avoid delirium (no benzodiazepines if they can be avoided) - Maintain sleep-wake cycle - enteral nutrition at goal rate as tolerated - continue accucheck's with glycemic control per SSI for target blood glucose goal of < 180 mg/dL; Avoid hypoglycemia - continue stress ulcer prophylaxis with Famotidine - continue mobility protocols for pressure ulcer prophylaxis - continue fall precautions - continue wound care management per RN / WCT - Supportive transfusions to keep HgB>7g/dL - CXR's and ABG's prn - Continue to monitor neurologic function - Continue chronic home medications - Continue all supportive care .... will transfer to [facility] ........ re-evaluate in am & prn CONDITION: FAIR PROGNOSIS: GUARDED CODE STATUS: FULL CODE Subjective Date of service: 01/15/20 Principal diagnosis: Ac hypoxemic resp failure; Pneumonia; PUI COVID-19; CHF; COPD; HTN Interval history: Patient is seen today for: Acute hypoxemic respiratory failure; [place]. Pneumonia (CAP); PUI COVID-19 infection; AE-CHF; AE-COPD; H/O CVA; HTN Seen and examined at bedside; 24 hour events reviewed; nursing and respiratory care staff consulted; no adverse overnight events reported to me; resting peacefully in bed; remains opn t-piece; work of breathing increased though; denies acute chest pains or palpitations Objective Vital Signs - 12hr 01/15/20 01/15/20 01/15/20 01:45 02:00 02:15 Temperature Pulse Rate 88 98 H 100 H Pulse Rate [ From Monitor] Respiratory 15 23 20 Rate Blood Pressure 136/87 121/78 121/78 O2 Sat by Pulse 95 97 96 Oximetry O2 Sat by Pulse Oximetry [ Assessment] 01/15/20 01/15/20 01/15/20 02:31 02:45 03:00 Temperature Pulse Rate 92 H 102 H 110 H Pulse Rate [ From Monitor] Respiratory 17 23 17 Rate Blood Pressure 121/78 121/78 124/73 O2 Sat by Pulse 95 96 94 Oximetry O2 Sat by Pulse Oximetry [ Assessment] 01/15/20 01/15/20 01/15/20 03:15 03:20 03:31 Temperature 99.8 F H Pulse Rate 114 H 103 H Pulse Rate [ From Monitor] Respiratory 17 17 Rate Blood Pressure 124/73 124/73 O2 Sat by Pulse 94 96 Oximetry O2 Sat by Pulse Oximetry [ Assessment] 01/15/20 01/15/20 01/15/20 03:45 03:59 04:00 Temperature Pulse Rate 128 H 134 H Pulse Rate [ 120 H From Monitor] Respiratory 20 21 Rate Blood Pressure 124/73 O2 Sat by Pulse 96 96 94 Oximetry O2 Sat by Pulse 96 Oximetry [ Assessment] 01/15/20 01/15/20 01/15/20 04:01 04:15 04:31 Temperature Pulse Rate 123 H 116 H 131 H Pulse Rate [ From Monitor] Respiratory 20 19 21 Rate Blood Pressure 120/68 120/68 120/68 O2 Sat by Pulse 95 95 97 Oximetry O2 Sat by Pulse Oximetry [ Assessment] 01/15/20 01/15/20 01/15/20 04:45 04:54 05:00 Temperature Pulse Rate 124 H 140 H 124 H Pulse Rate [ From Monitor] Respiratory 23 22 Rate Blood Pressure 120/68 120/68 114/73 O2 Sat by Pulse 98 96 Oximetry O2 Sat by Pulse Oximetry [ Assessment] 01/15/20 01/15/20 01/15/20 05:15 05:31 05:45 Temperature Pulse Rate 121 H 110 H 124 H Pulse Rate [ From Monitor] Respiratory 19 19 22 Rate Blood Pressure 114/73 114/73 114/73 O2 Sat by Pulse 95 97 96 Oximetry O2 Sat by Pulse Oximetry [ Assessment] 01/15/20 01/15/20 01/15/20 06:01 06:06 06:15 Temperature Pulse Rate 114 H 120 H 99 H Pulse Rate [ From Monitor] Respiratory 28 H 18 Rate Blood Pressure 112/86 112/86 O2 Sat by Pulse 95 98 Oximetry O2 Sat by Pulse Oximetry [ Assessment] 01/15/20 01/15/20 01/15/20 06:31 06:45 07:00 Temperature Pulse Rate 100 H 101 H 101 H Pulse Rate [ From Monitor] Respiratory 26 H 34 H 25 H Rate Blood Pressure 112/86 112/86 115/86 O2 Sat by Pulse 95 95 97 Oximetry O2 Sat by Pulse Oximetry [ Assessment] 01/15/20 01/15/20 01/15/20 07:15 07:31 07:45 Temperature Pulse Rate 100 H 102 H 107 H Pulse Rate [ From Monitor] Respiratory 21 21 22 Rate Blood Pressure 115/86 115/86 115/86 O2 Sat by Pulse 98 97 96 Oximetry O2 Sat by Pulse Oximetry [ Assessment] 01/15/20 01/15/20 01/15/20 08:00 08:01 08:15 Temperature Pulse Rate 89 105 H 106 H Pulse Rate [ 120 H From Monitor] Respiratory 21 21 25 H Rate Blood Pressure 136/76 109/88 109/88 O2 Sat by Pulse 96 96 94 Oximetry O2 Sat by Pulse 96 Oximetry [ Assessment] 01/15/20 01/15/20 01/15/20 08:31 08:45 09:01 Temperature Pulse Rate 121 H 125 H 121 H Pulse Rate [ From Monitor] Respiratory 21 29 H 29 H Rate Blood Pressure 109/88 109/88 139/105 O2 Sat by Pulse 91 89 100 Oximetry O2 Sat by Pulse Oximetry [ Assessment] 01/15/20 01/15/20 01/15/20 09:15 09:31 09:45 Temperature Pulse Rate 123 H 129 H 129 H Pulse Rate [ From Monitor] Respiratory 30 H 21 30 H Rate Blood Pressure 139/105 139/105 139/105 O2 Sat by Pulse 99 91 96 Oximetry O2 Sat by Pulse Oximetry [ Assessment] 01/15/20 01/15/20 01/15/20 10:00 10:15 10:31 Temperature Pulse Rate 121 H 111 H 113 H Pulse Rate [ From Monitor] Respiratory 20 29 H 43 H Rate Blood Pressure 138/99 138/99 138/99 O2 Sat by Pulse 96 100 89 Oximetry O2 Sat by Pulse Oximetry [ Assessment] 01/15/20 01/15/20 01/15/20 10:45 11:00 13:07 Temperature Pulse Rate 106 H 101 H 89 Pulse Rate [ From Monitor] Respiratory 19 18 Rate Blood Pressure 138/99 114/73 121/61 O2 Sat by Pulse 90 91 Oximetry O2 Sat by Pulse Oximetry [ Assessment] Constitutional: no acute distress, other (elelderly and obese male, normocephalic with mildly increased respiratory effort at rest on MVS) Eyes: non-icteric ENT: oropharynx moist, other (trach to t-piece) Neck: supple, no JVD Effort: mildly labored Ascultation: Bilateral: diminished breath sounds, rhonchi, other (mild secretions) Percussion: Bilateral: not dull Cardiovascular: irregular rhythm, other (S1,S2) Gastrointestinal: normoactive bowel sounds, soft, non-tender, other (protuberant; PEG in place) Integumentary: normal Extremities: no cyanosis, pulses normal, no ischemia or petechiae, edema (b ilateral upper ) Neurologic: non-focal exam (moves extremities), pupils equal and round, CN II- XII normal, motor strength normal and (weak) Psychiatric: mood appropriate, affect normal CBC and BMP: 01/14/20 16:14 01/14/20 16:14 ABG, PT/INR, D-dimer: ABG ABG pH 7.449 pH Units (7.350-7.450) 01/13/20 20:40 POC ABG pCO2 45.6 mmHg (32.0-48.0) 01/12/20 13:58 ABG pCO2 46.9 mm Hg 01/13/20 20:40 POC ABG pO2 76.6 mmHg (83-108) L 01/12/20 13:58 ABG pO2 65.3 mm Hg (80.0-90.0) L 01/13/20 20:40 POC ABG HCO3 31.2 01/12/20 13:58 ABG O2 Saturation 93.5 % (95.0-99.0) L 01/13/20 20:40 PT/INR, D-dimer PT 13.8 Sec. (12.2-14.9) 12/21/19 10:13 INR 1.05 (0.87-1.13) 12/21/19 10:13 Abnormal lab findings: Abnormal Labs 11/24/19 11/24/19 11/24/19 02:53 02:53 03:45 WBC 14.3 H RBC Hgb Hct MCHC RDW 17.2 H MCV MCH Lymph % (Auto) [place] % (Auto) [place] # Eos # Lymph # (Auto) [place] # (Auto) Eos # (Auto) Seg Neutrophils % Seg Neuts % (Manual) Baso # (Auto) Lymphocytes % (Manual) Monocytes % (Manual) Eosinophils % (Manual) Basophils % (Manual) Seg Neutrophils # Seg Neutrophils # Man 8.3 H Lymphocytes # (Manual) Monocytes # (Manual) 0.9 H Eosinophils # (Manual) Nucleated RBC % Basophils # (Manual) APTT Heparin Anti-Xa Level ABG pH 7.313 L POC ABG pO2 ABG pO2 102.8 H ABG HCO3 ABG O2 Saturation ABG Base Excess -2.9 L POC ABG pCO2 ABG Hemoglobin ABG Oxyhemoglobin ABG Glucose Oxyhemoglobin 93.9 L Sodium Potassium Chloride Carbon Dioxide BUN Creatinine Glucose 195 H POC Glucose Lactic Acid Calcium Phosphorus Magnesium AST ALT Lactate Dehydrogenase CK-MB (CK-2) 4.3 H C-Reactive Protein NT-Pro-B Natriuret Pep 1181 H Total Protein Albumin Arterial Blood Glucose Urine WBC (Auto) 11/24/19 11/24/19 11/24/19 04:53 04:53 10:37 WBC RBC Hgb Hct MCHC RDW MCV MCH Lymph % (Auto) [place] % (Auto) [place] # Eos # Lymph # (Auto) [place] # (Auto) Eos # (Auto) Seg Neutrophils % Seg Neuts % (Manual) Baso # (Auto) Lymphocytes % (Manual) Monocytes % (Manual) Eosinophils % (Manual) Basophils % (Manual) Seg Neutrophils # Seg Neutrophils # Man Lymphocytes # (Manual) Monocytes # (Manual) Eosinophils # (Manual) Nucleated RBC % Basophils # (Manual) APTT Heparin Anti-Xa Level ABG pH POC ABG pO2 ABG pO2 ABG HCO3 ABG O2 Saturation ABG Base Excess POC ABG pCO2 ABG Hemoglobin ABG Oxyhemoglobin ABG Glucose Oxyhemoglobin Sodium Potassium Chloride Carbon Dioxide BUN Creatinine Glucose 162 H POC Glucose Lactic Acid 2.40 H* 2.50 H* Calcium Phosphorus Magnesium AST ALT Lactate Dehydrogenase 240 H CK-MB (CK-2) C-Reactive Protein NT-Pro-B Natriuret Pep Total Protein Albumin Arterial Blood Glucose Urine WBC (Auto) 11/24/19 11/24/19 11/24/19 12:21 14:50 19:54 WBC RBC Hgb Hct MCHC RDW MCV MCH Lymph % (Auto) [place] % (Auto) [place] # Eos # Lymph # (Auto) [place] # (Auto) Eos # (Auto) Seg Neutrophils % Seg Neuts % (Manual) Baso # (Auto) Lymphocytes % (Manual) Monocytes % (Manual) Eosinophils % (Manual) Basophils % (Manual) Seg Neutrophils # Seg Neutrophils # Man Lymphocytes # (Manual) Monocytes # (Manual) Eosinophils # (Manual) Nucleated RBC % Basophils # (Manual) APTT Heparin Anti-Xa Level ABG pH POC ABG pO2 ABG pO2 ABG HCO3 ABG O2 Saturation ABG Base Excess POC ABG pCO2 ABG Hemoglobin ABG Oxyhemoglobin ABG Glucose Oxyhemoglobin Sodium Potassium Chloride Carbon Dioxide BUN Creatinine Glucose POC Glucose 145 H 143 H 124 H Lactic Acid Calcium Phosphorus Magnesium AST ALT Lactate Dehydrogenase CK-MB (CK-2) C-Reactive Protein NT-Pro-B Natriuret Pep Total Protein Albumin Arterial Blood Glucose Urine WBC (Auto) 11/25/19 11/25/19 11/25/19 00:18 03:18 05:11 WBC 13.7 H RBC Hgb Hct MCHC RDW 17.1 H MCV MCH Lymph % (Auto) 10.8 L [place] % (Auto) 8.7 H [place] # 1.2 H Eos # Lymph # (Auto) [place] # (Auto) Eos # (Auto) Seg Neutrophils % 80.2 H Seg Neuts % (Manual) Baso # (Auto) Lymphocytes % (Manual) Monocytes % (Manual) Eosinophils % (Manual) Basophils % (Manual) Seg Neutrophils # 11.0 H Seg Neutrophils # Man Lymphocytes # (Manual) Monocytes # (Manual) Eosinophils # (Manual) Nucleated RBC % Basophils # (Manual) APTT Heparin Anti-Xa Level ABG pH 7.333 L POC ABG pO2 ABG pO2 61.2 L ABG HCO3 ABG O2 Saturation 90.2 L ABG Base Excess POC ABG pCO2 ABG Hemoglobin 13.7 L ABG Oxyhemoglobin ABG Glucose Oxyhemoglobin 88.2 L Sodium Potassium Chloride Carbon Dioxide BUN Creatinine Glucose POC Glucose 109 H Lactic Acid Calcium Phosphorus Magnesium AST ALT Lactate Dehydrogenase CK-MB (CK-2) C-Reactive Protein NT-Pro-B Natriuret Pep Total Protein Albumin Arterial Blood Glucose Urine WBC (Auto) 11/25/19 11/25/19 11/26/19 05:11 11:40 03:12 WBC RBC Hgb Hct MCHC RDW MCV MCH Lymph % (Auto) [place] % (Auto) [place] # Eos # Lymph # (Auto) [place] # (Auto) Eos # (Auto) Seg Neutrophils % Seg Neuts % (Manual) Baso # (Auto) Lymphocytes % (Manual) Monocytes % (Manual) Eosinophils % (Manual) Basophils % (Manual) Seg Neutrophils # Seg Neutrophils # Man Lymphocytes # (Manual) Monocytes # (Manual) Eosinophils # (Manual) Nucleated RBC % Basophils # (Manual) APTT Heparin Anti-Xa Level ABG pH POC ABG pO2 ABG pO2 155.1 H ABG HCO3 27.8 H ABG O2 Saturation ABG Base Excess POC ABG pCO2 ABG Hemoglobin 12.2 L ABG Oxyhemoglobin ABG Glucose Oxyhemoglobin Sodium Potassium Chloride Carbon Dioxide BUN 23 H Creatinine Glucose 110 H POC Glucose 108 H Lactic Acid Calcium Phosphorus Magnesium AST ALT Lactate Dehydrogenase CK-MB (CK-2) C-Reactive Protein NT-Pro-B Natriuret Pep Total Protein Albumin Arterial Blood Glucose Urine WBC (Auto) 11/26/19 11/26/19 11/26/19 06:17 10:43 10:43 WBC 11.4 H RBC Hgb Hct MCHC RDW 17.1 H MCV MCH Lymph % (Auto) [place] % (Auto) [place] # Eos # Lymph # (Auto) [place] # (Auto) Eos # (Auto) Seg Neutrophils % Seg Neuts % (Manual) Baso # (Auto) Lymphocytes % (Manual) Monocytes % (Manual) Eosinophils % (Manual) Basophils % (Manual) Seg Neutrophils # Seg Neutrophils # Man Lymphocytes # (Manual) Monocytes # (Manual) Eosinophils # (Manual) Nucleated RBC % Basophils # (Manual) APTT Heparin Anti-Xa Level ABG pH POC ABG pO2 ABG pO2 ABG HCO3 ABG O2 Saturation ABG Base Excess POC ABG pCO2 ABG Hemoglobin ABG Oxyhemoglobin ABG Glucose Oxyhemoglobin Sodium Potassium Chloride Carbon Dioxide BUN 29 H Creatinine Glucose POC Glucose 107 H Lactic Acid Calcium Phosphorus Magnesium AST ALT Lactate Dehydrogenase CK-MB (CK-2) C-Reactive Protein NT-Pro-B Natriuret Pep Total Protein Albumin Arterial Blood Glucose Urine WBC (Auto) 11/26/19 11/27/19 11/27/19 17:11 01:53 04:11 WBC RBC Hgb Hct MCHC RDW MCV MCH Lymph % (Auto) [place] % (Auto) [place] # Eos # Lymph # (Auto) [place] # (Auto) Eos # (Auto) Seg Neutrophils % Seg Neuts % (Manual) Baso # (Auto) Lymphocytes % (Manual) Monocytes % (Manual) Eosinophils % (Manual) Basophils % (Manual) Seg Neutrophils # Seg Neutrophils # Man Lymphocytes # (Manual) Monocytes # (Manual) Eosinophils # (Manual) Nucleated RBC % Basophils # (Manual) APTT Heparin Anti-Xa Level ABG pH POC ABG pO2 ABG pO2 ABG HCO3 29.2 H ABG O2 Saturation ABG Base Excess 3.4 H POC ABG pCO2 ABG Hemoglobin 13.3 L ABG Oxyhemoglobin ABG Glucose Oxyhemoglobin 94.5 L Sodium Potassium Chloride Carbon Dioxide BUN Creatinine Glucose POC Glucose 113 H 108 H Lactic Acid Calcium Phosphorus Magnesium AST ALT Lactate Dehydrogenase CK-MB (CK-2) C-Reactive Protein NT-Pro-B Natriuret Pep Total Protein Albumin Arterial Blood Glucose Urine WBC (Auto) 11/27/19 11/28/19 11/28/19 05:27 05:00 05:25 WBC RBC Hgb Hct MCHC RDW MCV MCH Lymph % (Auto) [place] % (Auto) [place] # Eos # Lymph # (Auto) [place] # (Auto) Eos # (Auto) Seg Neutrophils % Seg Neuts % (Manual) Baso # (Auto) Lymphocytes % (Manual) Monocytes % (Manual) Eosinophils % (Manual) Basophils % (Manual) Seg Neutrophils # Seg Neutrophils # Man Lymphocytes # (Manual) Monocytes # (Manual) Eosinophils # (Manual) Nucleated RBC % Basophils # (Manual) APTT Heparin Anti-Xa Level ABG pH POC ABG pO2 68.1 L ABG pO2 ABG HCO3 ABG O2 Saturation ABG Base Excess POC ABG pCO2 ABG Hemoglobin ABG Oxyhemoglobin 91.2 L ABG Glucose Oxyhemoglobin Sodium Potassium Chloride Carbon Dioxide BUN Creatinine Glucose POC Glucose 111 H 110 H Lactic Acid Calcium Phosphorus Magnesium AST ALT Lactate Dehydrogenase CK-MB (CK-2) C-Reactive Protein NT-Pro-B Natriuret Pep Total Protein Albumin Arterial Blood Glucose Urine WBC (Auto) 11/28/19 11/28/19 11/28/19 12:08 13:47 13:47 WBC 11.3 H RBC Hgb Hct MCHC RDW 16.1 H MCV MCH Lymph % (Auto) [place] % (Auto) 9.9 H [place] # 1.1 H Eos # Lymph # (Auto) [place] # (Auto) Eos # (Auto) Seg Neutrophils % 71.4 H Seg Neuts % (Manual) Baso # (Auto) Lymphocytes % (Manual) Monocytes % (Manual) Eosinophils % (Manual) Basophils % (Manual) Seg Neutrophils # 8.1 H Seg Neutrophils # Man Lymphocytes # (Manual) Monocytes # (Manual) Eosinophils # (Manual) Nucleated RBC % Basophils # (Manual) APTT Heparin Anti-Xa Level ABG pH POC ABG pO2 ABG pO2 ABG HCO3 ABG O2 Saturation ABG Base Excess POC ABG pCO2 ABG Hemoglobin ABG Oxyhemoglobin ABG Glucose Oxyhemoglobin Sodium Potassium Chloride Carbon Dioxide BUN 23 H Creatinine Glucose 123 H POC Glucose 112 H Lactic Acid Calcium Phosphorus Magnesium AST ALT Lactate Dehydrogenase CK-MB (CK-2) C-Reactive Protein NT-Pro-B Natriuret Pep Total Protein Albumin 3.7 L Arterial Blood Glucose Urine WBC (Auto) 11/28/19 11/29/19 11/29/19 17:26 03:55 17:04 WBC RBC Hgb Hct MCHC RDW MCV MCH Lymph % (Auto) [place] % (Auto) [place] # Eos # Lymph # (Auto) [place] # (Auto) Eos # (Auto) Seg Neutrophils % Seg Neuts % (Manual) Baso # (Auto) Lymphocytes % (Manual) Monocytes % (Manual) Eosinophils % (Manual) Basophils % (Manual) Seg Neutrophils # Seg Neutrophils # Man Lymphocytes # (Manual) Monocytes # (Manual) Eosinophils # (Manual) Nucleated RBC % Basophils # (Manual) APTT Heparin Anti-Xa Level ABG pH POC ABG pO2 ABG pO2 65.7 L ABG HCO3 28.3 H ABG O2 Saturation 93.9 L ABG Base Excess 3.6 H POC ABG pCO2 ABG Hemoglobin 13.3 L ABG Oxyhemoglobin ABG Glucose Oxyhemoglobin 91.5 L Sodium Potassium Chloride Carbon Dioxide BUN Creatinine Glucose POC Glucose 123 H 119 H Lactic Acid Calcium Phosphorus Magnesium AST ALT Lactate Dehydrogenase CK-MB (CK-2) C-Reactive Protein NT-Pro-B Natriuret Pep Total Protein Albumin Arterial Blood Glucose Urine WBC (Auto) 11/30/19 11/30/19 11/30/19 04:17 04:17 04:56 WBC 13.4 H RBC Hgb Hct MCHC RDW 15.6 H MCV MCH Lymph % (Auto) [place] % (Auto) [place] # Eos # Lymph # (Auto) [place] # (Auto) Eos # (Auto) Seg Neutrophils % Seg Neuts % (Manual) Baso # (Auto) Lymphocytes % (Manual) Monocytes % (Manual) Eosinophils % (Manual) Basophils % (Manual) Seg Neutrophils # Seg Neutrophils # Man Lymphocytes # (Manual) Monocytes # (Manual) Eosinophils # (Manual) Nucleated RBC % Basophils # (Manual) APTT Heparin Anti-Xa Level ABG pH POC ABG pO2 ABG pO2 56.3 L ABG HCO3 29.3 H ABG O2 Saturation 91.5 L ABG Base Excess 4.7 H POC ABG pCO2 ABG Hemoglobin 12.1 L ABG Oxyhemoglobin ABG Glucose Oxyhemoglobin 89.2 L Sodium 147 H Potassium Chloride Carbon Dioxide BUN 30 H Creatinine Glucose 124 H POC Glucose Lactic Acid Calcium Phosphorus Magnesium AST ALT Lactate Dehydrogenase CK-MB (CK-2) C-Reactive Protein NT-Pro-B Natriuret Pep Total Protein Albumin 3.8 L Arterial Blood Glucose Urine WBC (Auto) 11/30/19 11/30/19 11/30/19 05:51 11:54 18:17 WBC RBC Hgb Hct MCHC RDW MCV MCH Lymph % (Auto) [place] % (Auto) [place] # Eos # Lymph # (Auto) [place] # (Auto) Eos # (Auto) Seg Neutrophils % Seg Neuts % (Manual) Baso # (Auto) Lymphocytes % (Manual) Monocytes % (Manual) Eosinophils % (Manual) Basophils % (Manual) Seg Neutrophils # Seg Neutrophils # Man Lymphocytes # (Manual) Monocytes # (Manual) Eosinophils # (Manual) Nucleated RBC % Basophils # (Manual) APTT Heparin Anti-Xa Level ABG pH POC ABG pO2 ABG pO2 ABG HCO3 ABG O2 Saturation ABG Base Excess POC ABG pCO2 ABG Hemoglobin ABG Oxyhemoglobin ABG Glucose Oxyhemoglobin Sodium Potassium Chloride Carbon Dioxide BUN Creatinine Glucose POC Glucose 127 H 115 H 143 H Lactic Acid Calcium Phosphorus Magnesium AST ALT Lactate Dehydrogenase CK-MB (CK-2) C-Reactive Protein NT-Pro-B Natriuret Pep Total Protein Albumin Arterial Blood Glucose Urine WBC (Auto) 12/01/19 12/01/19 12/01/19 01:18 05:22 12:16 WBC RBC Hgb Hct MCHC RDW MCV MCH Lymph % (Auto) [place] % (Auto) [place] # Eos # Lymph # (Auto) [place] # (Auto) Eos # (Auto) Seg Neutrophils % Seg Neuts % (Manual) Baso # (Auto) Lymphocytes % (Manual) Monocytes % (Manual) Eosinophils % (Manual) Basophils % (Manual) Seg Neutrophils # Seg Neutrophils # Man Lymphocytes # (Manual) Monocytes # (Manual) Eosinophils # (Manual) Nucleated RBC % Basophils # (Manual) APTT Heparin Anti-Xa Level ABG pH POC ABG pO2 ABG pO2 ABG HCO3 ABG O2 Saturation ABG Base Excess POC ABG pCO2 ABG Hemoglobin ABG Oxyhemoglobin ABG Glucose Oxyhemoglobin Sodium Potassium 3.5 L Chloride 107.8 H Carbon Dioxide BUN 37 H Creatinine Glucose 157 H POC Glucose 118 H 148 H Lactic Acid Calcium 8.2 L D Phosphorus Magnesium AST 48 H ALT 60 H Lactate Dehydrogenase 194 H CK-MB (CK-2) C-Reactive Protein 8.50 H NT-Pro-B Natriuret Pep Total Protein 5.5 L Albumin 2.8 L Arterial Blood Glucose Urine WBC (Auto) 12/01/19 12/02/19 12/02/19 18:04 00:05 05:16 WBC 11.4 H RBC Hgb Hct MCHC RDW 15.9 H MCV MCH Lymph % (Auto) [place] % (Auto) 9.9 H [place] # 1.1 H Eos # Lymph # (Auto) [place] # (Auto) Eos # (Auto) Seg Neutrophils % 70.3 H Seg Neuts % (Manual) Baso # (Auto) Lymphocytes % (Manual) Monocytes % (Manual) Eosinophils % (Manual) Basophils % (Manual) Seg Neutrophils # 8.0 H Seg Neutrophils # Man Lymphocytes # (Manual) Monocytes # (Manual) Eosinophils # (Manual) Nucleated RBC % Basophils # (Manual) APTT Heparin Anti-Xa Level ABG pH POC ABG pO2 ABG pO2 ABG HCO3 ABG O2 Saturation ABG Base Excess POC ABG pCO2 ABG Hemoglobin ABG Oxyhemoglobin ABG Glucose Oxyhemoglobin Sodium Potassium Chloride Carbon Dioxide BUN Creatinine Glucose POC Glucose 143 H 107 H Lactic Acid Calcium Phosphorus Magnesium AST ALT Lactate Dehydrogenase CK-MB (CK-2) C-Reactive Protein NT-Pro-B Natriuret Pep Total Protein Albumin Arterial Blood Glucose Urine WBC (Auto) 12/02/19 12/02/19 12/02/19 05:16 06:03 11:52 WBC RBC Hgb Hct MCHC RDW MCV MCH Lymph % (Auto) [place] % (Auto) [place] # Eos # Lymph # (Auto) [place] # (Auto) Eos # (Auto) Seg Neutrophils % Seg Neuts % (Manual) Baso # (Auto) Lymphocytes % (Manual) Monocytes % (Manual) Eosinophils % (Manual) Basophils % (Manual) Seg Neutrophils # Seg Neutrophils # Man Lymphocytes # (Manual) Monocytes # (Manual) Eosinophils # (Manual) Nucleated RBC % Basophils # (Manual) APTT Heparin Anti-Xa Level ABG pH POC ABG pO2 ABG pO2 ABG HCO3 ABG O2 Saturation ABG Base Excess POC ABG pCO2 ABG Hemoglobin ABG Oxyhemoglobin ABG Glucose Oxyhemoglobin Sodium 146 H Potassium Chloride Carbon Dioxide BUN 28 H Creatinine Glucose 123 H POC Glucose 110 H 152 H Lactic Acid Calcium Phosphorus Magnesium AST ALT Lactate Dehydrogenase CK-MB (CK-2) C-Reactive Protein NT-Pro-B Natriuret Pep Total Protein Albumin Arterial Blood Glucose Urine WBC (Auto) 12/02/19 12/02/19 12/02/19 12:58 17:58 23:36 WBC RBC Hgb Hct MCHC RDW MCV MCH Lymph % (Auto) [place] % (Auto) [place] # Eos # Lymph # (Auto) [place] # (Auto) Eos # (Auto) Seg Neutrophils % Seg Neuts % (Manual) Baso # (Auto) Lymphocytes % (Manual) Monocytes % (Manual) Eosinophils % (Manual) Basophils % (Manual) Seg Neutrophils # Seg Neutrophils # Man Lymphocytes # (Manual) Monocytes # (Manual) Eosinophils # (Manual) Nucleated RBC % Basophils # (Manual) APTT Heparin Anti-Xa Level ABG pH POC ABG pO2 78.1 L ABG pO2 ABG HCO3 ABG O2 Saturation ABG Base Excess POC ABG pCO2 ABG Hemoglobin ABG Oxyhemoglobin ABG Glucose Oxyhemoglobin Sodium Potassium Chloride Carbon Dioxide BUN Creatinine Glucose POC Glucose 120 H 123 H Lactic Acid Calcium Phosphorus Magnesium AST ALT Lactate Dehydrogenase CK-MB (CK-2) C-Reactive Protein NT-Pro-B Natriuret Pep Total Protein Albumin Arterial Blood Glucose Urine WBC (Auto) 12/03/19 12/03/19 12/03/19 06:03 06:14 11:46 WBC RBC Hgb Hct MCHC RDW MCV MCH Lymph % (Auto) [place] % (Auto) [place] # Eos # Lymph # (Auto) [place] # (Auto) Eos # (Auto) Seg Neutrophils % Seg Neuts % (Manual) Baso # (Auto) Lymphocytes % (Manual) Monocytes % (Manual) Eosinophils % (Manual) Basophils % (Manual) Seg Neutrophils # Seg Neutrophils # Man Lymphocytes # (Manual) Monocytes # (Manual) Eosinophils # (Manual) Nucleated RBC % Basophils # (Manual) APTT Heparin Anti-Xa Level ABG pH POC ABG pO2 ABG pO2 ABG HCO3 ABG O2 Saturation ABG Base Excess POC ABG pCO2 ABG Hemoglobin ABG Oxyhemoglobin ABG Glucose Oxyhemoglobin Sodium Potassium Chloride Carbon Dioxide BUN Creatinine Glucose POC Glucose 142 H 130 H Lactic Acid Calcium Phosphorus Magnesium AST ALT Lactate Dehydrogenase CK-MB (CK-2) C-Reactive Protein NT-Pro-B Natriuret Pep Total Protein Albumin Arterial Blood Glucose Urine WBC (Auto) 8.0 H 12/03/19 12/03/19 12/04/19 15:50 17:39 00:04 WBC RBC Hgb Hct MCHC RDW MCV MCH Lymph % (Auto) [place] % (Auto) [place] # Eos # Lymph # (Auto) [place] # (Auto) Eos # (Auto) Seg Neutrophils % Seg Neuts % (Manual) Baso # (Auto) Lymphocytes % (Manual) Monocytes % (Manual) Eosinophils % (Manual) Basophils % (Manual) Seg Neutrophils # Seg Neutrophils # Man Lymphocytes # (Manual) Monocytes # (Manual) Eosinophils # (Manual) Nucleated RBC % Basophils # (Manual) APTT Heparin Anti-Xa Level ABG pH POC ABG pO2 ABG pO2 ABG HCO3 ABG O2 Saturation ABG Base Excess POC ABG pCO2 ABG Hemoglobin ABG Oxyhemoglobin ABG Glucose Oxyhemoglobin Sodium Potassium Chloride Carbon Dioxide BUN Creatinine Glucose POC Glucose 146 H 133 H Lactic Acid Calcium Phosphorus 2.40 L Magnesium AST ALT Lactate Dehydrogenase CK-MB (CK-2) C-Reactive Protein NT-Pro-B Natriuret Pep Total Protein Albumin Arterial Blood Glucose Urine WBC (Auto) 12/04/19 12/04/19 12/04/19 03:58 03:58 05:22 WBC 12.5 H RBC Hgb 11.2 L Hct 35.2 L MCHC RDW 16.0 H MCV MCH Lymph % (Auto) [place] % (Auto) 9.6 H [place] # 1.2 H Eos # 0.5 H Lymph # (Auto) [place] # (Auto) Eos # (Auto) Seg Neutrophils % Seg Neuts % (Manual) Baso # (Auto) Lymphocytes % (Manual) Monocytes % (Manual) Eosinophils % (Manual) Basophils % (Manual) Seg Neutrophils # 8.6 H Seg Neutrophils # Man Lymphocytes # (Manual) Monocytes # (Manual) Eosinophils # (Manual) Nucleated RBC % Basophils # (Manual) APTT Heparin Anti-Xa Level ABG pH POC ABG pO2 ABG pO2 ABG HCO3 ABG O2 Saturation ABG Base Excess POC ABG pCO2 ABG Hemoglobin ABG Oxyhemoglobin ABG Glucose Oxyhemoglobin Sodium 146 H Potassium Chloride 108.6 H Carbon Dioxide BUN 30 H Creatinine 0.7 L Glucose 121 H POC Glucose 132 H Lactic Acid Calcium Phosphorus Magnesium AST ALT Lactate Dehydrogenase CK-MB (CK-2) C-Reactive Protein NT-Pro-B Natriuret Pep Total Protein Albumin Arterial Blood Glucose Urine WBC (Auto) 12/04/19 12/04/19 12/05/19 13:26 18:43 00:19 WBC RBC Hgb Hct MCHC RDW MCV MCH Lymph % (Auto) [place] % (Auto) [place] # Eos # Lymph # (Auto) [place] # (Auto) Eos # (Auto) Seg Neutrophils % Seg Neuts % (Manual) Baso # (Auto) Lymphocytes % (Manual) Monocytes % (Manual) Eosinophils % (Manual) Basophils % (Manual) Seg Neutrophils # Seg Neutrophils # Man Lymphocytes # (Manual) Monocytes # (Manual) Eosinophils # (Manual) Nucleated RBC % Basophils # (Manual) APTT Heparin Anti-Xa Level ABG pH POC ABG pO2 ABG pO2 ABG HCO3 ABG O2 Saturation ABG Base Excess POC ABG pCO2 ABG Hemoglobin ABG Oxyhemoglobin ABG Glucose Oxyhemoglobin Sodium Potassium Chloride Carbon Dioxide BUN Creatinine Glucose POC Glucose 185 H 156 H 150 H Lactic Acid Calcium Phosphorus Magnesium AST ALT Lactate Dehydrogenase CK-MB (CK-2) C-Reactive Protein NT-Pro-B Natriuret Pep Total Protein Albumin Arterial Blood Glucose Urine WBC (Auto) 12/05/19 12/05/19 12/05/19 03:37 03:37 05:14 WBC 16.3 H RBC Hgb 11.4 L Hct MCHC RDW 15.6 H MCV MCH Lymph % (Auto) 9.9 L [place] % (Auto) 9.7 H [place] # 1.6 H Eos # Lymph # (Auto) [place] # (Auto) Eos # (Auto) Seg Neutrophils % 78.0 H Seg Neuts % (Manual) Baso # (Auto) Lymphocytes % (Manual) Monocytes % (Manual) Eosinophils % (Manual) Basophils % (Manual) Seg Neutrophils # 12.7 H Seg Neutrophils # Man Lymphocytes # (Manual) Monocytes # (Manual) Eosinophils # (Manual) Nucleated RBC % Basophils # (Manual) APTT Heparin Anti-Xa Level ABG pH POC ABG pO2 ABG pO2 ABG HCO3 ABG O2 Saturation ABG Base Excess POC ABG pCO2 ABG Hemoglobin ABG Oxyhemoglobin ABG Glucose Oxyhemoglobin Sodium 146 H Potassium Chloride 107.2 H Carbon Dioxide BUN 27 H Creatinine 0.7 L Glucose 171 H POC Glucose 168 H Lactic Acid Calcium Phosphorus Magnesium AST ALT Lactate Dehydrogenase CK-MB (CK-2) C-Reactive Protein NT-Pro-B Natriuret Pep Total Protein Albumin Arterial Blood Glucose Urine WBC (Auto) 12/05/19 12/05/19 12/05/19 12:31 18:10 23:58 WBC RBC Hgb Hct MCHC RDW MCV MCH Lymph % (Auto) [place] % (Auto) [place] # Eos # Lymph # (Auto) [place] # (Auto) Eos # (Auto) Seg Neutrophils % Seg Neuts % (Manual) Baso # (Auto) Lymphocytes % (Manual) Monocytes % (Manual) Eosinophils % (Manual) Basophils % (Manual) Seg Neutrophils # Seg Neutrophils # Man Lymphocytes # (Manual) Monocytes # (Manual) Eosinophils # (Manual) Nucleated RBC % Basophils # (Manual) APTT Heparin Anti-Xa Level ABG pH POC ABG pO2 ABG pO2 ABG HCO3 ABG O2 Saturation ABG Base Excess POC ABG pCO2 ABG Hemoglobin ABG Oxyhemoglobin ABG Glucose Oxyhemoglobin Sodium Potassium Chloride Carbon Dioxide BUN Creatinine Glucose POC Glucose 159 H 198 H 115 H Lactic Acid Calcium Phosphorus Magnesium AST ALT Lactate Dehydrogenase CK-MB (CK-2) C-Reactive Protein NT-Pro-B Natriuret Pep Total Protein Albumin Arterial Blood Glucose Urine WBC (Auto) 12/06/19 12/06/19 12/06/19 05:24 05:24 05:25 WBC 14.9 H RBC Hgb 10.8 L Hct 34.0 L MCHC RDW 15.6 H MCV MCH Lymph % (Auto) 10.7 L [place] % (Auto) 8.3 H [place] # 1.2 H Eos # Lymph # (Auto) [place] # (Auto) Eos # (Auto) Seg Neutrophils % 78.7 H Seg Neuts % (Manual) Baso # (Auto) Lymphocytes % (Manual) Monocytes % (Manual) Eosinophils % (Manual) Basophils % (Manual) Seg Neutrophils # 11.7 H Seg Neutrophils # Man Lymphocytes # (Manual) Monocytes # (Manual) Eosinophils # (Manual) Nucleated RBC % Basophils # (Manual) APTT Heparin Anti-Xa Level ABG pH POC ABG pO2 ABG pO2 ABG HCO3 ABG O2 Saturation ABG Base Excess POC ABG pCO2 ABG Hemoglobin ABG Oxyhemoglobin ABG Glucose Oxyhemoglobin Sodium 148 H Potassium 5.1 H Chloride 107.6 H Carbon Dioxide BUN 27 H Creatinine 0.7 L Glucose 155 H POC Glucose 157 H Lactic Acid Calcium Phosphorus Magnesium AST ALT Lactate Dehydrogenase CK-MB (CK-2) C-Reactive Protein NT-Pro-B Natriuret Pep Total Protein Albumin Arterial Blood Glucose Urine WBC (Auto) 12/07/19 12/07/19 12/07/19 00:13 05:34 11:33 WBC RBC Hgb Hct MCHC RDW MCV MCH Lymph % (Auto) [place] % (Auto) [place] # Eos # Lymph # (Auto) [place] # (Auto) Eos # (Auto) Seg Neutrophils % Seg Neuts % (Manual) Baso # (Auto) Lymphocytes % (Manual) Monocytes % (Manual) Eosinophils % (Manual) Basophils % (Manual) Seg Neutrophils # Seg Neutrophils # Man Lymphocytes # (Manual) Monocytes # (Manual) Eosinophils # (Manual) Nucleated RBC % Basophils # (Manual) APTT Heparin Anti-Xa Level ABG pH POC ABG pO2 ABG pO2 ABG HCO3 ABG O2 Saturation ABG Base Excess POC ABG pCO2 ABG Hemoglobin ABG Oxyhemoglobin ABG Glucose Oxyhemoglobin Sodium Potassium Chloride Carbon Dioxide BUN Creatinine Glucose POC Glucose 142 H 111 H 169 H Lactic Acid Calcium Phosphorus Magnesium AST ALT Lactate Dehydrogenase CK-MB (CK-2) C-Reactive Protein NT-Pro-B Natriuret Pep Total Protein Albumin Arterial Blood Glucose Urine WBC (Auto) 12/07/19 12/07/19 12/07/19 12:41 13:25 18:19 WBC 12.4 H RBC 3.53 L Hgb 10.2 L Hct 32.1 L MCHC RDW 15.3 H MCV MCH Lymph % (Auto) 10.6 L [place] % (Auto) 7.8 H [place] # 1.0 H Eos # Lymph # (Auto) [place] # (Auto) Eos # (Auto) Seg Neutrophils % 77.6 H Seg Neuts % (Manual) Baso # (Auto) Lymphocytes % (Manual) Monocytes % (Manual) Eosinophils % (Manual) Basophils % (Manual) Seg Neutrophils # 9.6 H Seg Neutrophils # Man Lymphocytes # (Manual) Monocytes # (Manual) Eosinophils # (Manual) Nucleated RBC % Basophils # (Manual) APTT Heparin Anti-Xa Level ABG pH POC ABG pO2 ABG pO2 ABG HCO3 ABG O2 Saturation ABG Base Excess POC ABG pCO2 ABG Hemoglobin ABG Oxyhemoglobin ABG Glucose Oxyhemoglobin Sodium 149 H Potassium Chloride 108.4 H Carbon Dioxide BUN 26 H Creatinine 0.6 L Glucose 149 H POC Glucose 164 H Lactic Acid Calcium Phosphorus Magnesium 2.60 H AST 121 H ALT 145 H Lactate Dehydrogenase CK-MB (CK-2) C-Reactive Protein NT-Pro-B Natriuret Pep Total Protein Albumin 2.6 L Arterial Blood Glucose Urine WBC (Auto) 12/07/19 12/08/19 12/08/19 22:25 00:02 03:55 WBC 13.3 H RBC 3.40 L Hgb 9.7 L Hct 30.8 L MCHC 31 L RDW 15.5 H MCV MCH Lymph % (Auto) [place] % (Auto) 8.1 H [place] # 1.1 H Eos # Lymph # (Auto) [place] # (Auto) Eos # (Auto) Seg Neutrophils % 73.0 H Seg Neuts % (Manual) Baso # (Auto) Lymphocytes % (Manual) Monocytes % (Manual) Eosinophils % (Manual) Basophils % (Manual) Seg Neutrophils # 9.7 H Seg Neutrophils # Man Lymphocytes # (Manual) Monocytes # (Manual) Eosinophils # (Manual) Nucleated RBC % Basophils # (Manual) APTT Heparin Anti-Xa Level 0.12 L ABG pH POC ABG pO2 ABG pO2 ABG HCO3 ABG O2 Saturation ABG Base Excess POC ABG pCO2 ABG Hemoglobin ABG Oxyhemoglobin ABG Glucose Oxyhemoglobin Sodium Potassium Chloride Carbon Dioxide BUN Creatinine Glucose POC Glucose 151 H Lactic Acid Calcium Phosphorus Magnesium AST ALT Lactate Dehydrogenase CK-MB (CK-2) C-Reactive Protein NT-Pro-B Natriuret Pep Total Protein Albumin Arterial Blood Glucose Urine WBC (Auto) 12/08/19 12/08/19 12/08/19 03:55 05:21 06:01 WBC RBC Hgb Hct MCHC RDW MCV MCH Lymph % (Auto) [place] % (Auto) [place] # Eos # Lymph # (Auto) [place] # (Auto) Eos # (Auto) Seg Neutrophils % Seg Neuts % (Manual) Baso # (Auto) Lymphocytes % (Manual) Monocytes % (Manual) Eosinophils % (Manual) Basophils % (Manual) Seg Neutrophils # Seg Neutrophils # Man Lymphocytes # (Manual) Monocytes # (Manual) Eosinophils # (Manual) Nucleated RBC % Basophils # (Manual) APTT Heparin Anti-Xa Level 0.20 L ABG pH POC ABG pO2 ABG pO2 ABG HCO3 ABG O2 Saturation ABG Base Excess POC ABG pCO2 ABG Hemoglobin ABG Oxyhemoglobin ABG Glucose Oxyhemoglobin Sodium 149 H Potassium Chloride 108.0 H Carbon Dioxide BUN 28 H Creatinine 0.6 L Glucose 144 H POC Glucose 143 H Lactic Acid Calcium Phosphorus Magnesium AST 98 H ALT 145 H Lactate Dehydrogenase CK-MB (CK-2) C-Reactive Protein NT-Pro-B Natriuret Pep Total Protein 6.0 L Albumin 2.4 L Arterial Blood Glucose Urine WBC (Auto) 12/08/19 12/08/19 12/08/19 12:08 18:11 23:53 WBC RBC Hgb Hct MCHC RDW MCV MCH Lymph % (Auto) [place] % (Auto) [place] # Eos # Lymph # (Auto) [place] # (Auto) Eos # (Auto) Seg Neutrophils % Seg Neuts % (Manual) Baso # (Auto) Lymphocytes % (Manual) Monocytes % (Manual) Eosinophils % (Manual) Basophils % (Manual) Seg Neutrophils # Seg Neutrophils # Man Lymphocytes # (Manual) Monocytes # (Manual) Eosinophils # (Manual) Nucleated RBC % Basophils # (Manual) APTT Heparin Anti-Xa Level ABG pH POC ABG pO2 ABG pO2 ABG HCO3 ABG O2 Saturation ABG Base Excess POC ABG pCO2 ABG Hemoglobin ABG Oxyhemoglobin ABG Glucose Oxyhemoglobin Sodium Potassium Chloride Carbon Dioxide BUN Creatinine Glucose POC Glucose 172 H 122 H 162 H Lactic Acid Calcium Phosphorus Magnesium AST ALT Lactate Dehydrogenase CK-MB (CK-2) C-Reactive Protein NT-Pro-B Natriuret Pep Total Protein Albumin Arterial Blood Glucose Urine WBC (Auto) 12/09/19 12/09/19 12/09/19 04:03 04:03 05:53 WBC RBC Hgb 9.1 L Hct 28.9 L MCHC RDW MCV MCH Lymph % (Auto) [place] % (Auto) [place] # Eos # Lymph # (Auto) [place] # (Auto) Eos # (Auto) Seg Neutrophils % Seg Neuts % (Manual) Baso # (Auto) Lymphocytes % (Manual) Monocytes % (Manual) Eosinophils % (Manual) Basophils % (Manual) Seg Neutrophils # Seg Neutrophils # Man Lymphocytes # (Manual) Monocytes # (Manual) Eosinophils # (Manual) Nucleated RBC % Basophils # (Manual) APTT Heparin Anti-Xa Level 0.15 L ABG pH POC ABG pO2 ABG pO2 ABG HCO3 ABG O2 Saturation ABG Base Excess POC ABG pCO2 ABG Hemoglobin ABG Oxyhemoglobin ABG Glucose Oxyhemoglobin Sodium Potassium Chloride Carbon Dioxide BUN Creatinine Glucose POC Glucose 124 H Lactic Acid Calcium Phosphorus Magnesium AST ALT Lactate Dehydrogenase CK-MB (CK-2) C-Reactive Protein NT-Pro-B Natriuret Pep Total Protein Albumin Arterial Blood Glucose Urine WBC (Auto) 12/09/19 12/09/19 12/10/19 09:43 12:41 00:13 WBC RBC Hgb Hct MCHC RDW MCV MCH Lymph % (Auto) [place] % (Auto) [place] # Eos # Lymph # (Auto) [place] # (Auto) Eos # (Auto) Seg Neutrophils % Seg Neuts % (Manual) Baso # (Auto) Lymphocytes % (Manual) Monocytes % (Manual) Eosinophils % (Manual) Basophils % (Manual) Seg Neutrophils # Seg Neutrophils # Man Lymphocytes # (Manual) Monocytes # (Manual) Eosinophils # (Manual) Nucleated RBC % Basophils # (Manual) APTT Heparin Anti-Xa Level ABG pH POC ABG pO2 ABG pO2 ABG HCO3 ABG O2 Saturation ABG Base Excess POC ABG pCO2 ABG Hemoglobin ABG Oxyhemoglobin ABG Glucose Oxyhemoglobin Sodium Potassium Chloride Carbon Dioxide BUN 25 H Creatinine 0.6 L Glucose 131 H POC Glucose 109 H 120 H Lactic Acid Calcium Phosphorus Magnesium AST ALT Lactate Dehydrogenase CK-MB (CK-2) C-Reactive Protein NT-Pro-B Natriuret Pep Total Protein Albumin Arterial Blood Glucose Urine WBC (Auto) 12/10/19 12/10/19 12/10/19 04:14 04:14 12:00 WBC 13.3 H RBC 3.34 L Hgb 9.6 L Hct 30.4 L MCHC RDW 15.4 H MCV MCH Lymph % (Auto) [place] % (Auto) [place] # Eos # Lymph # (Auto) [place] # (Auto) Eos # (Auto) Seg Neutrophils % Seg Neuts % (Manual) 75.0 H Baso # (Auto) Lymphocytes % (Manual) 13.0 L Monocytes % (Manual) 8.0 H Eosinophils % (Manual) Basophils % (Manual) 2.0 H Seg Neutrophils # Seg Neutrophils # Man 10.0 H Lymphocytes # (Manual) Monocytes # (Manual) 1.1 H Eosinophils # (Manual) Nucleated RBC % Basophils # (Manual) 0.3 H APTT Heparin Anti-Xa Level ABG pH POC ABG pO2 ABG pO2 ABG HCO3 ABG O2 Saturation ABG Base Excess POC ABG pCO2 ABG Hemoglobin ABG Oxyhemoglobin ABG Glucose Oxyhemoglobin Sodium 147 H Potassium Chloride 108.3 H Carbon Dioxide BUN 21 H Creatinine 0.6 L Glucose 104 H POC Glucose 133 H Lactic Acid Calcium Phosphorus Magnesium AST ALT Lactate Dehydrogenase CK-MB (CK-2) C-Reactive Protein NT-Pro-B Natriuret Pep Total Protein Albumin Arterial Blood Glucose Urine WBC (Auto) 12/10/19 12/10/19 12/11/19 18:44 21:20 00:08 WBC 14.9 H RBC 3.36 L Hgb 9.6 L Hct 30.5 L MCHC RDW 15.4 H MCV MCH Lymph % (Auto) [place] % (Auto) [place] # Eos # Lymph # (Auto) [place] # (Auto) Eos # (Auto) Seg Neutrophils % Seg Neuts % (Manual) Baso # (Auto) Lymphocytes % (Manual) Monocytes % (Manual) Eosinophils % (Manual) Basophils % (Manual) Seg Neutrophils # Seg Neutrophils # Man Lymphocytes # (Manual) Monocytes # (Manual) Eosinophils # (Manual) Nucleated RBC % Basophils # (Manual) APTT Heparin Anti-Xa Level ABG pH POC ABG pO2 ABG pO2 ABG HCO3 ABG O2 Saturation ABG Base Excess POC ABG pCO2 ABG Hemoglobin ABG Oxyhemoglobin ABG Glucose Oxyhemoglobin Sodium Potassium Chloride Carbon Dioxide BUN Creatinine Glucose POC Glucose 119 H 134 H Lactic Acid Calcium Phosphorus Magnesium AST ALT Lactate Dehydrogenase CK-MB (CK-2) C-Reactive Protein NT-Pro-B Natriuret Pep Total Protein Albumin Arterial Blood Glucose Urine WBC (Auto) 12/11/19 12/11/19 12/11/19 03:54 07:28 08:36 WBC 11.9 H RBC 3.25 L Hgb 9.6 L Hct 29.2 L MCHC RDW 15.7 H MCV MCH Lymph % (Auto) [place] % (Auto) [place] # Eos # Lymph # (Auto) [place] # (Auto) Eos # (Auto) Seg Neutrophils % Seg Neuts % (Manual) Baso # (Auto) Lymphocytes % (Manual) Monocytes % (Manual) Eosinophils % (Manual) Basophils % (Manual) Seg Neutrophils # Seg Neutrophils # Man Lymphocytes # (Manual) Monocytes # (Manual) Eosinophils # (Manual) Nucleated RBC % Basophils # (Manual) APTT Heparin Anti-Xa Level 0.10 L 0.16 L ABG pH POC ABG pO2 ABG pO2 ABG HCO3 ABG O2 Saturation ABG Base Excess POC ABG pCO2 ABG Hemoglobin ABG Oxyhemoglobin ABG Glucose Oxyhemoglobin Sodium Potassium Chloride Carbon Dioxide BUN Creatinine Glucose POC Glucose Lactic Acid Calcium Phosphorus Magnesium AST ALT Lactate Dehydrogenase CK-MB (CK-2) C-Reactive Protein NT-Pro-B Natriuret Pep Total Protein Albumin Arterial Blood Glucose Urine WBC (Auto) 12/11/19 12/11/19 12/11/19 08:36 11:45 17:15 WBC RBC Hgb Hct MCHC RDW MCV MCH Lymph % (Auto) [place] % (Auto) [place] # Eos # Lymph # (Auto) [place] # (Auto) Eos # (Auto) Seg Neutrophils % Seg Neuts % (Manual) Baso # (Auto) Lymphocytes % (Manual) Monocytes % (Manual) Eosinophils % (Manual) Basophils % (Manual) Seg Neutrophils # Seg Neutrophils # Man Lymphocytes # (Manual) Monocytes # (Manual) Eosinophils # (Manual) Nucleated RBC % Basophils # (Manual) APTT Heparin Anti-Xa Level ABG pH POC ABG pO2 ABG pO2 ABG HCO3 ABG O2 Saturation ABG Base Excess POC ABG pCO2 ABG Hemoglobin ABG Oxyhemoglobin ABG Glucose Oxyhemoglobin Sodium Potassium Chloride Carbon Dioxide BUN Creatinine 0.5 L Glucose 128 H POC Glucose 136 H 109 H Lactic Acid Calcium Phosphorus Magnesium AST ALT Lactate Dehydrogenase CK-MB (CK-2) C-Reactive Protein NT-Pro-B Natriuret Pep Total Protein Albumin Arterial Blood Glucose Urine WBC (Auto) 12/12/19 12/12/19 12/12/19 00:03 05:53 05:53 WBC RBC Hgb 8.8 L Hct 27.6 L MCHC RDW MCV MCH Lymph % (Auto) [place] % (Auto) [place] # Eos # Lymph # (Auto) [place] # (Auto) Eos # (Auto) Seg Neutrophils % Seg Neuts % (Manual) Baso # (Auto) Lymphocytes % (Manual) Monocytes % (Manual) Eosinophils % (Manual) Basophils % (Manual) Seg Neutrophils # Seg Neutrophils # Man Lymphocytes # (Manual) Monocytes # (Manual) Eosinophils # (Manual) Nucleated RBC % Basophils # (Manual) APTT Heparin Anti-Xa Level 0.22 L ABG pH POC ABG pO2 ABG pO2 ABG HCO3 ABG O2 Saturation ABG Base Excess POC ABG pCO2 ABG Hemoglobin ABG Oxyhemoglobin ABG Glucose Oxyhemoglobin Sodium Potassium Chloride Carbon Dioxide BUN Creatinine Glucose POC Glucose 116 H Lactic Acid Calcium Phosphorus Magnesium AST ALT Lactate Dehydrogenase CK-MB (CK-2) C-Reactive Protein NT-Pro-B Natriuret Pep Total Protein Albumin Arterial Blood Glucose Urine WBC (Auto) 12/12/19 12/12/19 12/12/19 09:38 12:18 17:44 WBC RBC Hgb Hct MCHC RDW MCV MCH Lymph % (Auto) [place] % (Auto) [place] # Eos # Lymph # (Auto) [place] # (Auto) Eos # (Auto) Seg Neutrophils % Seg Neuts % (Manual) Baso # (Auto) Lymphocytes % (Manual) Monocytes % (Manual) Eosinophils % (Manual) Basophils % (Manual) Seg Neutrophils # Seg Neutrophils # Man Lymphocytes # (Manual) Monocytes # (Manual) Eosinophils # (Manual) Nucleated RBC % Basophils # (Manual) APTT Heparin Anti-Xa Level ABG pH POC ABG pO2 ABG pO2 ABG HCO3 ABG O2 Saturation ABG Base Excess POC ABG pCO2 ABG Hemoglobin ABG Oxyhemoglobin ABG Glucose Oxyhemoglobin Sodium Potassium Chloride Carbon Dioxide BUN Creatinine Glucose POC Glucose 115 H 146 H 146 H Lactic Acid Calcium Phosphorus Magnesium AST ALT Lactate Dehydrogenase CK-MB (CK-2) C-Reactive Protein NT-Pro-B Natriuret Pep Total Protein Albumin Arterial Blood Glucose Urine WBC (Auto) 12/12/19 12/13/19 12/13/19 23:33 05:32 05:32 WBC 13.1 H RBC 3.27 L Hgb 9.5 L Hct 29.3 L MCHC RDW 15.6 H MCV MCH Lymph % (Auto) [place] % (Auto) [place] # Eos # Lymph # (Auto) [place] # (Auto) Eos # (Auto) Seg Neutrophils % Seg Neuts % (Manual) 74.0 H Baso # (Auto) Lymphocytes % (Manual) 8.0 L Monocytes % (Manual) 9.0 H Eosinophils % (Manual) 5.0 H Basophils % (Manual) Seg Neutrophils # Seg Neutrophils # Man 9.7 H Lymphocytes # (Manual) 1.0 L Monocytes # (Manual) 1.2 H Eosinophils # (Manual) 0.7 H Nucleated RBC % Basophils # (Manual) APTT Heparin Anti-Xa Level 0.20 L ABG pH POC ABG pO2 ABG pO2 ABG HCO3 ABG O2 Saturation ABG Base Excess POC ABG pCO2 ABG Hemoglobin ABG Oxyhemoglobin ABG Glucose Oxyhemoglobin Sodium Potassium Chloride Carbon Dioxide BUN Creatinine Glucose POC Glucose 126 H Lactic Acid Calcium Phosphorus Magnesium AST ALT Lactate Dehydrogenase CK-MB (CK-2) C-Reactive Protein NT-Pro-B Natriuret Pep Total Protein Albumin Arterial Blood Glucose Urine WBC (Auto) 12/13/19 12/13/19 12/13/19 05:32 05:46 11:57 WBC RBC Hgb Hct MCHC RDW MCV MCH Lymph % (Auto) [place] % (Auto) [place] # Eos # Lymph # (Auto) [place] # (Auto) Eos # (Auto) Seg Neutrophils % Seg Neuts % (Manual) Baso # (Auto) Lymphocytes % (Manual) Monocytes % (Manual) Eosinophils % (Manual) Basophils % (Manual) Seg Neutrophils # Seg Neutrophils # Man Lymphocytes # (Manual) Monocytes # (Manual) Eosinophils # (Manual) Nucleated RBC % Basophils # (Manual) APTT Heparin Anti-Xa Level ABG pH POC ABG pO2 ABG pO2 ABG HCO3 ABG O2 Saturation ABG Base Excess POC ABG pCO2 ABG Hemoglobin ABG Oxyhemoglobin ABG Glucose Oxyhemoglobin Sodium Potassium Chloride Carbon Dioxide 31 H BUN Creatinine 0.6 L Glucose 114 H POC Glucose 118 H 133 H Lactic Acid Calcium Phosphorus Magnesium AST ALT Lactate Dehydrogenase CK-MB (CK-2) C-Reactive Protein NT-Pro-B Natriuret Pep Total Protein Albumin Arterial Blood Glucose Urine WBC (Auto) 12/13/19 12/13/19 12/14/19 17:44 23:46 05:32 WBC RBC Hgb Hct MCHC RDW MCV MCH Lymph % (Auto) [place] % (Auto) [place] # Eos # Lymph # (Auto) [place] # (Auto) Eos # (Auto) Seg Neutrophils % Seg Neuts % (Manual) Baso # (Auto) Lymphocytes % (Manual) Monocytes % (Manual) Eosinophils % (Manual) Basophils % (Manual) Seg Neutrophils # Seg Neutrophils # Man Lymphocytes # (Manual) Monocytes # (Manual) Eosinophils # (Manual) Nucleated RBC % Basophils # (Manual) APTT Heparin Anti-Xa Level ABG pH POC ABG pO2 ABG pO2 ABG HCO3 ABG O2 Saturation ABG Base Excess POC ABG pCO2 ABG Hemoglobin ABG Oxyhemoglobin ABG Glucose Oxyhemoglobin Sodium Potassium Chloride Carbon Dioxide BUN Creatinine Glucose POC Glucose 161 H 126 H 139 H Lactic Acid Calcium Phosphorus Magnesium AST ALT Lactate Dehydrogenase CK-MB (CK-2) C-Reactive Protein NT-Pro-B Natriuret Pep Total Protein Albumin Arterial Blood Glucose Urine WBC (Auto) 12/14/19 12/14/19 12/14/19 06:03 06:03 09:37 WBC RBC Hgb 9.6 L Hct 30.4 L MCHC RDW MCV MCH Lymph % (Auto) [place] % (Auto) [place] # Eos # Lymph # (Auto) [place] # (Auto) Eos # (Auto) Seg Neutrophils % Seg Neuts % (Manual) Baso # (Auto) Lymphocytes % (Manual) Monocytes % (Manual) Eosinophils % (Manual) Basophils % (Manual) Seg Neutrophils # Seg Neutrophils # Man Lymphocytes # (Manual) Monocytes # (Manual) Eosinophils # (Manual) Nucleated RBC % Basophils # (Manual) APTT Heparin Anti-Xa Level 0.24 L ABG pH POC ABG pO2 ABG pO2 ABG HCO3 ABG O2 Saturation ABG Base Excess POC ABG pCO2 ABG Hemoglobin ABG Oxyhemoglobin ABG Glucose Oxyhemoglobin Sodium Potassium Chloride Carbon Dioxide BUN Creatinine 0.6 L Glucose 162 H POC Glucose Lactic Acid Calcium Phosphorus Magnesium AST 71 H ALT 118 H Lactate Dehydrogenase CK-MB (CK-2) C-Reactive Protein NT-Pro-B Natriuret Pep Total Protein 6.2 L Albumin 2.3 L Arterial Blood Glucose Urine WBC (Auto) 12/14/19 12/14/19 12/15/19 12:06 18:18 00:19 WBC RBC Hgb Hct MCHC RDW MCV MCH Lymph % (Auto) [place] % (Auto) [place] # Eos # Lymph # (Auto) [place] # (Auto) Eos # (Auto) Seg Neutrophils % Seg Neuts % (Manual) Baso # (Auto) Lymphocytes % (Manual) Monocytes % (Manual) Eosinophils % (Manual) Basophils % (Manual) Seg Neutrophils # Seg Neutrophils # Man Lymphocytes # (Manual) Monocytes # (Manual) Eosinophils # (Manual) Nucleated RBC % Basophils # (Manual) APTT Heparin Anti-Xa Level ABG pH POC ABG pO2 ABG pO2 ABG HCO3 ABG O2 Saturation ABG Base Excess POC ABG pCO2 ABG Hemoglobin ABG Oxyhemoglobin ABG Glucose Oxyhemoglobin Sodium Potassium Chloride Carbon Dioxide BUN Creatinine Glucose POC Glucose 147 H 166 H 123 H Lactic Acid Calcium Phosphorus Magnesium AST ALT Lactate Dehydrogenase CK-MB (CK-2) C-Reactive Protein NT-Pro-B Natriuret Pep Total Protein Albumin Arterial Blood Glucose Urine WBC (Auto) 12/15/19 12/15/19 12/15/19 05:28 05:29 05:29 WBC 14.9 H RBC 3.19 L Hgb 9.1 L Hct 28.7 L MCHC RDW 16.0 H MCV MCH Lymph % (Auto) [place] % (Auto) [place] # Eos # Lymph # (Auto) [place] # (Auto) Eos # (Auto) Seg Neutrophils % Seg Neuts % (Manual) Baso # (Auto) Lymphocytes % (Manual) Monocytes % (Manual) Eosinophils % (Manual) Basophils % (Manual) Seg Neutrophils # Seg Neutrophils # Man Lymphocytes # (Manual) Monocytes # (Manual) Eosinophils # (Manual) Nucleated RBC % Basophils # (Manual) APTT Heparin Anti-Xa Level 0.19 L ABG pH POC ABG pO2 ABG pO2 ABG HCO3 ABG O2 Saturation ABG Base Excess POC ABG pCO2 ABG Hemoglobin ABG Oxyhemoglobin ABG Glucose Oxyhemoglobin Sodium Potassium Chloride Carbon Dioxide BUN Creatinine 0.6 L Glucose 110 H POC Glucose Lactic Acid Calcium Phosphorus Magnesium AST ALT Lactate Dehydrogenase CK-MB (CK-2) C-Reactive Protein NT-Pro-B Natriuret Pep Total Protein Albumin Arterial Blood Glucose Urine WBC (Auto) 12/15/19 12/15/19 12/15/19 05:53 11:50 17:26 WBC RBC Hgb Hct MCHC RDW MCV MCH Lymph % (Auto) [place] % (Auto) [place] # Eos # Lymph # (Auto) [place] # (Auto) Eos # (Auto) Seg Neutrophils % Seg Neuts % (Manual) Baso # (Auto) Lymphocytes % (Manual) Monocytes % (Manual) Eosinophils % (Manual) Basophils % (Manual) Seg Neutrophils # Seg Neutrophils # Man Lymphocytes # (Manual) Monocytes # (Manual) Eosinophils # (Manual) Nucleated RBC % Basophils # (Manual) APTT Heparin Anti-Xa Level ABG pH POC ABG pO2 ABG pO2 ABG HCO3 ABG O2 Saturation ABG Base Excess POC ABG pCO2 ABG Hemoglobin ABG Oxyhemoglobin ABG Glucose Oxyhemoglobin Sodium Potassium Chloride Carbon Dioxide BUN Creatinine Glucose POC Glucose 119 H 132 H 128 H Lactic Acid Calcium Phosphorus Magnesium AST ALT Lactate Dehydrogenase CK-MB (CK-2) C-Reactive Protein NT-Pro-B Natriuret Pep Total Protein Albumin Arterial Blood Glucose Urine WBC (Auto) 12/15/19 12/16/19 12/16/19 23:11 05:30 05:46 WBC RBC Hgb 8.8 L Hct 27.9 L MCHC RDW MCV MCH Lymph % (Auto) [place] % (Auto) [place] # Eos # Lymph # (Auto) [place] # (Auto) Eos # (Auto) Seg Neutrophils % Seg Neuts % (Manual) Baso # (Auto) Lymphocytes % (Manual) Monocytes % (Manual) Eosinophils % (Manual) Basophils % (Manual) Seg Neutrophils # Seg Neutrophils # Man Lymphocytes # (Manual) Monocytes # (Manual) Eosinophils # (Manual) Nucleated RBC % Basophils # (Manual) APTT Heparin Anti-Xa Level ABG pH POC ABG pO2 ABG pO2 ABG HCO3 ABG O2 Saturation ABG Base Excess POC ABG pCO2 ABG Hemoglobin ABG Oxyhemoglobin ABG Glucose Oxyhemoglobin Sodium Potassium Chloride Carbon Dioxide BUN Creatinine Glucose POC Glucose 150 H 134 H Lactic Acid Calcium Phosphorus Magnesium AST ALT Lactate Dehydrogenase CK-MB (CK-2) C-Reactive Protein NT-Pro-B Natriuret Pep Total Protein Albumin Arterial Blood Glucose Urine WBC (Auto) 12/16/19 12/16/19 12/16/19 05:46 05:46 11:44 WBC RBC Hgb Hct MCHC RDW MCV MCH Lymph % (Auto) [place] % (Auto) [place] # Eos # Lymph # (Auto) [place] # (Auto) Eos # (Auto) Seg Neutrophils % Seg Neuts % (Manual) Baso # (Auto) Lymphocytes % (Manual) Monocytes % (Manual) Eosinophils % (Manual) Basophils % (Manual) Seg Neutrophils # Seg Neutrophils # Man Lymphocytes # (Manual) Monocytes # (Manual) Eosinophils # (Manual) Nucleated RBC % Basophils # (Manual) APTT Heparin Anti-Xa Level 0.20 L ABG pH POC ABG pO2 ABG pO2 ABG HCO3 ABG O2 Saturation ABG Base Excess POC ABG pCO2 ABG Hemoglobin ABG Oxyhemoglobin ABG Glucose Oxyhemoglobin Sodium Potassium Chloride Carbon Dioxide 31 H BUN Creatinine 0.5 L Glucose 147 H POC Glucose 164 H Lactic Acid Calcium Phosphorus Magnesium AST ALT Lactate Dehydrogenase CK-MB (CK-2) C-Reactive Protein NT-Pro-B Natriuret Pep Total Protein Albumin Arterial Blood Glucose Urine WBC (Auto) 12/16/19 12/16/19 12/17/19 17:17 23:49 05:30 WBC 13.9 H RBC 3.27 L Hgb 9.4 L Hct 29.2 L MCHC RDW 16.0 H MCV MCH Lymph % (Auto) [place] % (Auto) 8.8 H [place] # Eos # Lymph # (Auto) [place] # (Auto) 1.2 H Eos # (Auto) 0.5 H Seg Neutrophils % 70.5 H Seg Neuts % (Manual) Baso # (Auto) 0.2 H Lymphocytes % (Manual) Monocytes % (Manual) Eosinophils % (Manual) Basophils % (Manual) Seg Neutrophils # 9.8 H Seg Neutrophils # Man Lymphocytes # (Manual) Monocytes # (Manual) Eosinophils # (Manual) Nucleated RBC % Basophils # (Manual) APTT Heparin Anti-Xa Level ABG pH POC ABG pO2 ABG pO2 ABG HCO3 ABG O2 Saturation ABG Base Excess POC ABG pCO2 ABG Hemoglobin ABG Oxyhemoglobin ABG Glucose Oxyhemoglobin Sodium Potassium Chloride Carbon Dioxide BUN Creatinine Glucose POC Glucose 162 H 144 H Lactic Acid Calcium Phosphorus Magnesium AST ALT Lactate Dehydrogenase CK-MB (CK-2) C-Reactive Protein NT-Pro-B Natriuret Pep Total Protein Albumin Arterial Blood Glucose Urine WBC (Auto) 12/17/19 12/17/19 12/17/19 05:30 06:06 11:50 WBC RBC Hgb Hct MCHC RDW MCV MCH Lymph % (Auto) [place] % (Auto) [place] # Eos # Lymph # (Auto) [place] # (Auto) Eos # (Auto) Seg Neutrophils % Seg Neuts % (Manual) Baso # (Auto) Lymphocytes % (Manual) Monocytes % (Manual) Eosinophils % (Manual) Basophils % (Manual) Seg Neutrophils # Seg Neutrophils # Man Lymphocytes # (Manual) Monocytes # (Manual) Eosinophils # (Manual) Nucleated RBC % Basophils # (Manual) APTT Heparin Anti-Xa Level ABG pH POC ABG pO2 ABG pO2 ABG HCO3 ABG O2 Saturation ABG Base Excess POC ABG pCO2 ABG Hemoglobin ABG Oxyhemoglobin ABG Glucose Oxyhemoglobin Sodium Potassium Chloride 97.4 L Carbon Dioxide 32 H BUN Creatinine 0.5 L Glucose 135 H POC Glucose 151 H 140 H Lactic Acid Calcium Phosphorus Magnesium AST ALT Lactate Dehydrogenase CK-MB (CK-2) C-Reactive Protein NT-Pro-B Natriuret Pep Total Protein Albumin Arterial Blood Glucose Urine WBC (Auto) 12/17/19 12/17/19 12/18/19 17:50 23:46 05:17 WBC RBC Hgb 8.8 L Hct 28.0 L MCHC RDW MCV MCH Lymph % (Auto) [place] % (Auto) [place] # Eos # Lymph # (Auto) [place] # (Auto) Eos # (Auto) Seg Neutrophils % Seg Neuts % (Manual) Baso # (Auto) Lymphocytes % (Manual) Monocytes % (Manual) Eosinophils % (Manual) Basophils % (Manual) Seg Neutrophils # Seg Neutrophils # Man Lymphocytes # (Manual) Monocytes # (Manual) Eosinophils # (Manual) Nucleated RBC % Basophils # (Manual) APTT Heparin Anti-Xa Level ABG pH POC ABG pO2 ABG pO2 ABG HCO3 ABG O2 Saturation ABG Base Excess POC ABG pCO2 ABG Hemoglobin ABG Oxyhemoglobin ABG Glucose Oxyhemoglobin Sodium Potassium Chloride Carbon Dioxide BUN Creatinine Glucose POC Glucose 158 H 150 H Lactic Acid Calcium Phosphorus Magnesium AST ALT Lactate Dehydrogenase CK-MB (CK-2) C-Reactive Protein NT-Pro-B Natriuret Pep Total Protein Albumin Arterial Blood Glucose Urine WBC (Auto) 12/18/19 12/18/19 12/18/19 05:17 05:49 11:12 WBC RBC Hgb Hct MCHC RDW MCV MCH Lymph % (Auto) [place] % (Auto) [place] # Eos # Lymph # (Auto) [place] # (Auto) Eos # (Auto) Seg Neutrophils % Seg Neuts % (Manual) Baso # (Auto) Lymphocytes % (Manual) Monocytes % (Manual) Eosinophils % (Manual) Basophils % (Manual) Seg Neutrophils # Seg Neutrophils # Man Lymphocytes # (Manual) Monocytes # (Manual) Eosinophils # (Manual) Nucleated RBC % Basophils # (Manual) APTT Heparin Anti-Xa Level 0.16 L ABG pH POC ABG pO2 ABG pO2 ABG HCO3 ABG O2 Saturation ABG Base Excess POC ABG pCO2 ABG Hemoglobin ABG Oxyhemoglobin ABG Glucose Oxyhemoglobin Sodium Potassium Chloride Carbon Dioxide BUN Creatinine Glucose POC Glucose 127 H 191 H Lactic Acid Calcium Phosphorus Magnesium AST ALT Lactate Dehydrogenase CK-MB (CK-2) C-Reactive Protein NT-Pro-B Natriuret Pep Total Protein Albumin Arterial Blood Glucose Urine WBC (Auto) 12/18/19 12/18/19 12/19/19 17:03 20:16 00:08 WBC RBC Hgb Hct MCHC RDW MCV MCH Lymph % (Auto) [place] % (Auto) [place] # Eos # Lymph # (Auto) [place] # (Auto) Eos # (Auto) Seg Neutrophils % Seg Neuts % (Manual) Baso # (Auto) Lymphocytes % (Manual) Monocytes % (Manual) Eosinophils % (Manual) Basophils % (Manual) Seg Neutrophils # Seg Neutrophils # Man Lymphocytes # (Manual) Monocytes # (Manual) Eosinophils # (Manual) Nucleated RBC % Basophils # (Manual) APTT Heparin Anti-Xa Level ABG pH POC ABG pO2 ABG pO2 ABG HCO3 ABG O2 Saturation ABG Base Excess POC ABG pCO2 ABG Hemoglobin ABG Oxyhemoglobin ABG Glucose Oxyhemoglobin Sodium Potassium Chloride Carbon Dioxide BUN Creatinine Glucose POC Glucose 133 H 128 H 129 H Lactic Acid Calcium Phosphorus Magnesium AST ALT Lactate Dehydrogenase CK-MB (CK-2) C-Reactive Protein NT-Pro-B Natriuret Pep Total Protein Albumin Arterial Blood Glucose Urine WBC (Auto) 12/19/19 12/19/19 12/19/19 04:45 04:45 05:35 WBC RBC Hgb Hct MCHC RDW MCV MCH Lymph % (Auto) [place] % (Auto) [place] # Eos # Lymph # (Auto) [place] # (Auto) Eos # (Auto) Seg Neutrophils % Seg Neuts % (Manual) Baso # (Auto) Lymphocytes % (Manual) Monocytes % (Manual) Eosinophils % (Manual) Basophils % (Manual) Seg Neutrophils # Seg Neutrophils # Man Lymphocytes # (Manual) Monocytes # (Manual) Eosinophils # (Manual) Nucleated RBC % Basophils # (Manual) APTT Heparin Anti-Xa Level 0.17 L ABG pH POC ABG pO2 ABG pO2 ABG HCO3 ABG O2 Saturation ABG Base Excess POC ABG pCO2 ABG Hemoglobin ABG Oxyhemoglobin ABG Glucose Oxyhemoglobin Sodium Potassium Chloride Carbon Dioxide BUN Creatinine Glucose POC Glucose 120 H Lactic Acid Calcium Phosphorus Magnesium AST ALT Lactate Dehydrogenase 228 H CK-MB (CK-2) C-Reactive Protein NT-Pro-B Natriuret Pep Total Protein Albumin Arterial Blood Glucose Urine WBC (Auto) 12/19/19 12/19/19 12/19/19 09:20 11:32 11:32 WBC 14.6 H RBC 3.08 L Hgb 9.0 L Hct 26.8 L MCHC RDW 15.9 H MCV MCH Lymph % (Auto) [place] % (Auto) [place] # Eos # Lymph # (Auto) [place] # (Auto) Eos # (Auto) Seg Neutrophils % Seg Neuts % (Manual) 82.0 H Baso # (Auto) Lymphocytes % (Manual) 10.0 L Monocytes % (Manual) Eosinophils % (Manual) Basophils % (Manual) Seg Neutrophils # Seg Neutrophils # Man 12.0 H Lymphocytes # (Manual) Monocytes # (Manual) 0.9 H Eosinophils # (Manual) Nucleated RBC % 1.0 H Basophils # (Manual) APTT Heparin Anti-Xa Level ABG pH 7.451 H POC ABG pO2 ABG pO2 62.6 L ABG HCO3 33.2 H ABG O2 Saturation 93.8 L ABG Base Excess 8.3 H POC ABG pCO2 ABG Hemoglobin 8.3 L ABG Oxyhemoglobin ABG Glucose Oxyhemoglobin 91.9 L Sodium Potassium Chloride 95.0 L Carbon Dioxide 33 H BUN 22 H Creatinine 0.6 L Glucose 150 H POC Glucose Lactic Acid Calcium Phosphorus Magnesium AST ALT Lactate Dehydrogenase CK-MB (CK-2) C-Reactive Protein NT-Pro-B Natriuret Pep Total Protein 6.2 L Albumin 2.4 L Arterial Blood Glucose Urine WBC (Auto) 12/19/19 12/19/19 12/20/19 11:56 18:17 00:09 WBC RBC Hgb Hct MCHC RDW MCV MCH Lymph % (Auto) [place] % (Auto) [place] # Eos # Lymph # (Auto) [place] # (Auto) Eos # (Auto) Seg Neutrophils % Seg Neuts % (Manual) Baso # (Auto) Lymphocytes % (Manual) Monocytes % (Manual) Eosinophils % (Manual) Basophils % (Manual) Seg Neutrophils # Seg Neutrophils # Man Lymphocytes # (Manual) Monocytes # (Manual) Eosinophils # (Manual) Nucleated RBC % Basophils # (Manual) APTT Heparin Anti-Xa Level ABG pH POC ABG pO2 ABG pO2 ABG HCO3 ABG O2 Saturation ABG Base Excess POC ABG pCO2 ABG Hemoglobin ABG Oxyhemoglobin ABG Glucose Oxyhemoglobin Sodium Potassium Chloride Carbon Dioxide BUN Creatinine Glucose POC Glucose 156 H 156 H 155 H Lactic Acid Calcium Phosphorus Magnesium AST ALT Lactate Dehydrogenase CK-MB (CK-2) C-Reactive Protein NT-Pro-B Natriuret Pep Total Protein Albumin Arterial Blood Glucose Urine WBC (Auto) 12/20/19 12/20/19 12/20/19 05:26 06:02 18:17 WBC RBC Hgb Hct MCHC RDW MCV MCH Lymph % (Auto) [place] % (Auto) [place] # Eos # Lymph # (Auto) [place] # (Auto) Eos # (Auto) Seg Neutrophils % Seg Neuts % (Manual) Baso # (Auto) Lymphocytes % (Manual) Monocytes % (Manual) Eosinophils % (Manual) Basophils % (Manual) Seg Neutrophils # Seg Neutrophils # Man Lymphocytes # (Manual) Monocytes # (Manual) Eosinophils # (Manual) Nucleated RBC % Basophils # (Manual) APTT Heparin Anti-Xa Level 0.19 L ABG pH POC ABG pO2 ABG pO2 ABG HCO3 ABG O2 Saturation ABG Base Excess POC ABG pCO2 ABG Hemoglobin ABG Oxyhemoglobin ABG Glucose Oxyhemoglobin Sodium Potassium Chloride Carbon Dioxide BUN Creatinine Glucose POC Glucose 137 H 128 H Lactic Acid Calcium Phosphorus Magnesium AST ALT Lactate Dehydrogenase CK-MB (CK-2) C-Reactive Protein NT-Pro-B Natriuret Pep Total Protein Albumin Arterial Blood Glucose Urine WBC (Auto) 12/20/19 12/21/19 12/21/19 23:34 05:31 05:31 WBC 12.7 H RBC 3.09 L Hgb 8.9 L Hct 27.4 L MCHC RDW 15.8 H MCV MCH Lymph % (Auto) 12.1 L [place] % (Auto) 7.8 H [place] # Eos # Lymph # (Auto) [place] # (Auto) 1.0 H Eos # (Auto) Seg Neutrophils % 77.1 H Seg Neuts % (Manual) Baso # (Auto) Lymphocytes % (Manual) Monocytes % (Manual) Eosinophils % (Manual) Basophils % (Manual) Seg Neutrophils # 9.8 H Seg Neutrophils # Man Lymphocytes # (Manual) Monocytes # (Manual) Eosinophils # (Manual) Nucleated RBC % Basophils # (Manual) APTT Heparin Anti-Xa Level ABG pH POC ABG pO2 ABG pO2 ABG HCO3 ABG O2 Saturation ABG Base Excess POC ABG pCO2 ABG Hemoglobin ABG Oxyhemoglobin ABG Glucose Oxyhemoglobin Sodium Potassium Chloride 96.9 L Carbon Dioxide 37 H BUN 27 H Creatinine 0.7 L Glucose 140 H POC Glucose 145 H Lactic Acid Calcium Phosphorus Magnesium AST ALT Lactate Dehydrogenase CK-MB (CK-2) C-Reactive Protein NT-Pro-B Natriuret Pep Total Protein Albumin Arterial Blood Glucose Urine WBC (Auto) 12/21/19 12/21/19 12/21/19 05:38 10:13 11:51 WBC RBC Hgb Hct MCHC RDW MCV MCH Lymph % (Auto) [place] % (Auto) [place] # Eos # Lymph # (Auto) [place] # (Auto) Eos # (Auto) Seg Neutrophils % Seg Neuts % (Manual) Baso # (Auto) Lymphocytes % (Manual) Monocytes % (Manual) Eosinophils % (Manual) Basophils % (Manual) Seg Neutrophils # Seg Neutrophils # Man Lymphocytes # (Manual) Monocytes # (Manual) Eosinophils # (Manual) Nucleated RBC % Basophils # (Manual) APTT 23.9 L Heparin Anti-Xa Level < 0.10 L ABG pH POC ABG pO2 ABG pO2 ABG HCO3 ABG O2 Saturation ABG Base Excess POC ABG pCO2 ABG Hemoglobin ABG Oxyhemoglobin ABG Glucose Oxyhemoglobin Sodium Potassium Chloride Carbon Dioxide BUN Creatinine Glucose POC Glucose 151 H 145 H Lactic Acid Calcium Phosphorus Magnesium AST ALT Lactate Dehydrogenase CK-MB (CK-2) C-Reactive Protein NT-Pro-B Natriuret Pep Total Protein Albumin Arterial Blood Glucose Urine WBC (Auto) 12/21/19 12/22/19 12/22/19 17:16 00:01 01:33 WBC RBC Hgb Hct MCHC RDW MCV MCH Lymph % (Auto) [place] % (Auto) [place] # Eos # Lymph # (Auto) [place] # (Auto) Eos # (Auto) Seg Neutrophils % Seg Neuts % (Manual) Baso # (Auto) Lymphocytes % (Manual) Monocytes % (Manual) Eosinophils % (Manual) Basophils % (Manual) Seg Neutrophils # Seg Neutrophils # Man Lymphocytes # (Manual) Monocytes # (Manual) Eosinophils # (Manual) Nucleated RBC % Basophils # (Manual) APTT Heparin Anti-Xa Level 0.10 L ABG pH POC ABG pO2 ABG pO2 ABG HCO3 ABG O2 Saturation ABG Base Excess POC ABG pCO2 ABG Hemoglobin ABG Oxyhemoglobin ABG Glucose Oxyhemoglobin Sodium Potassium Chloride Carbon Dioxide BUN Creatinine Glucose POC Glucose 167 H 179 H Lactic Acid Calcium Phosphorus Magnesium AST ALT Lactate Dehydrogenase CK-MB (CK-2) C-Reactive Protein NT-Pro-B Natriuret Pep Total Protein Albumin Arterial Blood Glucose Urine WBC (Auto) 12/22/19 12/22/19 12/22/19 03:22 05:10 05:10 WBC 13.8 H RBC 3.20 L Hgb 8.9 L Hct 28.1 L MCHC RDW 15.9 H MCV MCH Lymph % (Auto) [place] % (Auto) [place] # Eos # Lymph # (Auto) [place] # (Auto) Eos # (Auto) Seg Neutrophils % Seg Neuts % (Manual) Baso # (Auto) Lymphocytes % (Manual) Monocytes % (Manual) Eosinophils % (Manual) Basophils % (Manual) Seg Neutrophils # Seg Neutrophils # Man Lymphocytes # (Manual) Monocytes # (Manual) Eosinophils # (Manual) Nucleated RBC % Basophils # (Manual) APTT Heparin Anti-Xa Level ABG pH POC ABG pO2 52.3 L ABG pO2 ABG HCO3 ABG O2 Saturation ABG Base Excess POC ABG pCO2 52.9 H ABG Hemoglobin 10.7 L ABG Oxyhemoglobin 84 L ABG Glucose Oxyhemoglobin Sodium Potassium Chloride 96.6 L Carbon Dioxide BUN 25 H Creatinine 0.7 L Glucose 129 H POC Glucose Lactic Acid Calcium Phosphorus Magnesium AST ALT Lactate Dehydrogenase CK-MB (CK-2) C-Reactive Protein NT-Pro-B Natriuret Pep Total Protein Albumin Arterial Blood Glucose Urine WBC (Auto) 12/22/19 12/22/19 12/22/19 05:18 12:32 12:43 WBC RBC Hgb Hct MCHC RDW MCV MCH Lymph % (Auto) [place] % (Auto) [place] # Eos # Lymph # (Auto) [place] # (Auto) Eos # (Auto) Seg Neutrophils % Seg Neuts % (Manual) Baso # (Auto) Lymphocytes % (Manual) Monocytes % (Manual) Eosinophils % (Manual) Basophils % (Manual) Seg Neutrophils # Seg Neutrophils # Man Lymphocytes # (Manual) Monocytes # (Manual) Eosinophils # (Manual) Nucleated RBC % Basophils # (Manual) APTT Heparin Anti-Xa Level 0.18 L ABG pH POC ABG pO2 ABG pO2 ABG HCO3 ABG O2 Saturation ABG Base Excess POC ABG pCO2 ABG Hemoglobin ABG Oxyhemoglobin ABG Glucose Oxyhemoglobin Sodium Potassium Chloride Carbon Dioxide BUN Creatinine Glucose POC Glucose 131 H 208 H Lactic Acid Calcium Phosphorus Magnesium AST ALT Lactate Dehydrogenase CK-MB (CK-2) C-Reactive Protein NT-Pro-B Natriuret Pep Total Protein Albumin Arterial Blood Glucose Urine WBC (Auto) 12/22/19 12/22/19 12/23/19 17:44 23:20 03:51 WBC 15.2 H RBC 3.43 L Hgb 9.6 L Hct 30.3 L MCHC RDW 15.9 H MCV MCH Lymph % (Auto) [place] % (Auto) [place] # Eos # Lymph # (Auto) [place] # (Auto) Eos # (Auto) Seg Neutrophils % Seg Neuts % (Manual) Baso # (Auto) Lymphocytes % (Manual) Monocytes % (Manual) Eosinophils % (Manual) Basophils % (Manual) Seg Neutrophils # Seg Neutrophils # Man Lymphocytes # (Manual) Monocytes # (Manual) Eosinophils # (Manual) Nucleated RBC % Basophils # (Manual) APTT Heparin Anti-Xa Level ABG pH POC ABG pO2 ABG pO2 ABG HCO3 ABG O2 Saturation ABG Base Excess POC ABG pCO2 ABG Hemoglobin ABG Oxyhemoglobin ABG Glucose Oxyhemoglobin Sodium Potassium Chloride Carbon Dioxide BUN Creatinine Glucose POC Glucose 209 H 119 H Lactic Acid Calcium Phosphorus Magnesium AST ALT Lactate Dehydrogenase CK-MB (CK-2) C-Reactive Protein NT-Pro-B Natriuret Pep Total Protein Albumin Arterial Blood Glucose Urine WBC (Auto) 12/23/19 12/23/19 12/23/19 03:51 05:31 12:09 WBC RBC Hgb Hct MCHC RDW MCV MCH Lymph % (Auto) [place] % (Auto) [place] # Eos # Lymph # (Auto) [place] # (Auto) Eos # (Auto) Seg Neutrophils % Seg Neuts % (Manual) Baso # (Auto) Lymphocytes % (Manual) Monocytes % (Manual) Eosinophils % (Manual) Basophils % (Manual) Seg Neutrophils # Seg Neutrophils # Man Lymphocytes # (Manual) Monocytes # (Manual) Eosinophils # (Manual) Nucleated RBC % Basophils # (Manual) APTT Heparin Anti-Xa Level ABG pH POC ABG pO2 ABG pO2 ABG HCO3 ABG O2 Saturation ABG Base Excess POC ABG pCO2 ABG Hemoglobin ABG Oxyhemoglobin ABG Glucose Oxyhemoglobin Sodium Potassium Chloride 97.2 L Carbon Dioxide 31 H BUN 23 H Creatinine 0.6 L Glucose 153 H POC Glucose 149 H 144 H Lactic Acid Calcium Phosphorus Magnesium AST ALT Lactate Dehydrogenase CK-MB (CK-2) C-Reactive Protein NT-Pro-B Natriuret Pep Total Protein Albumin Arterial Blood Glucose Urine WBC (Auto) 12/23/19 12/23/19 12/23/19 15:30 17:49 23:31 WBC RBC Hgb Hct MCHC RDW MCV MCH Lymph % (Auto) [place] % (Auto) [place] # Eos # Lymph # (Auto) [place] # (Auto) Eos # (Auto) Seg Neutrophils % Seg Neuts % (Manual) Baso # (Auto) Lymphocytes % (Manual) Monocytes % (Manual) Eosinophils % (Manual) Basophils % (Manual) Seg Neutrophils # Seg Neutrophils # Man Lymphocytes # (Manual) Monocytes # (Manual) Eosinophils # (Manual) Nucleated RBC % Basophils # (Manual) APTT Heparin Anti-Xa Level 0.21 L ABG pH POC ABG pO2 ABG pO2 ABG HCO3 ABG O2 Saturation ABG Base Excess POC ABG pCO2 ABG Hemoglobin ABG Oxyhemoglobin ABG Glucose Oxyhemoglobin Sodium Potassium Chloride Carbon Dioxide BUN Creatinine Glucose POC Glucose 192 H 151 H Lactic Acid Calcium Phosphorus Magnesium AST ALT Lactate Dehydrogenase CK-MB (CK-2) C-Reactive Protein NT-Pro-B Natriuret Pep Total Protein Albumin Arterial Blood Glucose Urine WBC (Auto) 12/24/19 12/24/19 12/24/19 05:34 12:13 16:50 WBC RBC Hgb Hct MCHC RDW MCV MCH Lymph % (Auto) [place] % (Auto) [place] # Eos # Lymph # (Auto) [place] # (Auto) Eos # (Auto) Seg Neutrophils % Seg Neuts % (Manual) Baso # (Auto) Lymphocytes % (Manual) Monocytes % (Manual) Eosinophils % (Manual) Basophils % (Manual) Seg Neutrophils # Seg Neutrophils # Man Lymphocytes # (Manual) Monocytes # (Manual) Eosinophils # (Manual) Nucleated RBC % Basophils # (Manual) APTT Heparin Anti-Xa Level 0.16 L ABG pH POC ABG pO2 ABG pO2 ABG HCO3 ABG O2 Saturation ABG Base Excess POC ABG pCO2 ABG Hemoglobin ABG Oxyhemoglobin ABG Glucose Oxyhemoglobin Sodium Potassium Chloride Carbon Dioxide BUN Creatinine Glucose POC Glucose 145 H 124 H Lactic Acid Calcium Phosphorus Magnesium AST ALT Lactate Dehydrogenase CK-MB (CK-2) C-Reactive Protein NT-Pro-B Natriuret Pep Total Protein Albumin Arterial Blood Glucose Urine WBC (Auto) 12/24/19 12/25/19 12/25/19 17:53 00:14 04:18 WBC 12.9 H RBC 3.30 L Hgb 9.1 L Hct 28.8 L MCHC RDW 16.4 H MCV MCH Lymph % (Auto) [place] % (Auto) 7.8 H [place] # Eos # Lymph # (Auto) [place] # (Auto) 1.0 H Eos # (Auto) Seg Neutrophils % 75.5 H Seg Neuts % (Manual) Baso # (Auto) Lymphocytes % (Manual) Monocytes % (Manual) Eosinophils % (Manual) Basophils % (Manual) Seg Neutrophils # 9.7 H Seg Neutrophils # Man Lymphocytes # (Manual) Monocytes # (Manual) Eosinophils # (Manual) Nucleated RBC % Basophils # (Manual) APTT Heparin Anti-Xa Level ABG pH POC ABG pO2 ABG pO2 ABG HCO3 ABG O2 Saturation ABG Base Excess POC ABG pCO2 ABG Hemoglobin ABG Oxyhemoglobin ABG Glucose Oxyhemoglobin Sodium Potassium Chloride Carbon Dioxide BUN Creatinine Glucose POC Glucose 164 H 148 H Lactic Acid Calcium Phosphorus Magnesium AST ALT Lactate Dehydrogenase CK-MB (CK-2) C-Reactive Protein NT-Pro-B Natriuret Pep Total Protein Albumin Arterial Blood Glucose Urine WBC (Auto) 12/25/19 12/25/19 12/25/19 04:18 05:38 11:44 WBC RBC Hgb Hct MCHC RDW MCV MCH Lymph % (Auto) [place] % (Auto) [place] # Eos # Lymph # (Auto) [place] # (Auto) Eos # (Auto) Seg Neutrophils % Seg Neuts % (Manual) Baso # (Auto) Lymphocytes % (Manual) Monocytes % (Manual) Eosinophils % (Manual) Basophils % (Manual) Seg Neutrophils # Seg Neutrophils # Man Lymphocytes # (Manual) Monocytes # (Manual) Eosinophils # (Manual) Nucleated RBC % Basophils # (Manual) APTT Heparin Anti-Xa Level ABG pH POC ABG pO2 ABG pO2 ABG HCO3 ABG O2 Saturation ABG Base Excess POC ABG pCO2 ABG Hemoglobin ABG Oxyhemoglobin ABG Glucose Oxyhemoglobin Sodium Potassium Chloride Carbon Dioxide 33 H BUN 27 H Creatinine 0.6 L Glucose 132 H POC Glucose 152 H 166 H Lactic Acid Calcium Phosphorus Magnesium AST ALT Lactate Dehydrogenase CK-MB (CK-2) C-Reactive Protein NT-Pro-B Natriuret Pep Total Protein Albumin Arterial Blood Glucose Urine WBC (Auto) 12/25/19 12/26/19 12/26/19 18:29 00:17 00:18 WBC RBC Hgb Hct MCHC RDW MCV MCH Lymph % (Auto) [place] % (Auto) [place] # Eos # Lymph # (Auto) [place] # (Auto) Eos # (Auto) Seg Neutrophils % Seg Neuts % (Manual) Baso # (Auto) Lymphocytes % (Manual) Monocytes % (Manual) Eosinophils % (Manual) Basophils % (Manual) Seg Neutrophils # Seg Neutrophils # Man Lymphocytes # (Manual) Monocytes # (Manual) Eosinophils # (Manual) Nucleated RBC % Basophils # (Manual) APTT Heparin Anti-Xa Level ABG pH POC ABG pO2 ABG pO2 ABG HCO3 ABG O2 Saturation ABG Base Excess POC ABG pCO2 ABG Hemoglobin ABG Oxyhemoglobin ABG Glucose Oxyhemoglobin Sodium Potassium Chloride 97.8 L Carbon Dioxide BUN 25 H Creatinine 0.6 L Glucose 140 H POC Glucose 194 H 151 H Lactic Acid Calcium Phosphorus Magnesium AST ALT Lactate Dehydrogenase CK-MB (CK-2) C-Reactive Protein NT-Pro-B Natriuret Pep Total Protein Albumin Arterial Blood Glucose Urine WBC (Auto) 12/26/19 12/26/19 12/26/19 05:36 11:41 17:50 WBC RBC Hgb Hct MCHC RDW MCV MCH Lymph % (Auto) [place] % (Auto) [place] # Eos # Lymph # (Auto) [place] # (Auto) Eos # (Auto) Seg Neutrophils % Seg Neuts % (Manual) Baso # (Auto) Lymphocytes % (Manual) Monocytes % (Manual) Eosinophils % (Manual) Basophils % (Manual) Seg Neutrophils # Seg Neutrophils # Man Lymphocytes # (Manual) Monocytes # (Manual) Eosinophils # (Manual) Nucleated RBC % Basophils # (Manual) APTT Heparin Anti-Xa Level ABG pH POC ABG pO2 ABG pO2 ABG HCO3 ABG O2 Saturation ABG Base Excess POC ABG pCO2 ABG Hemoglobin ABG Oxyhemoglobin ABG Glucose Oxyhemoglobin Sodium Potassium Chloride Carbon Dioxide BUN Creatinine Glucose POC Glucose 156 H 148 H 139 H Lactic Acid Calcium Phosphorus Magnesium AST ALT Lactate Dehydrogenase CK-MB (CK-2) C-Reactive Protein NT-Pro-B Natriuret Pep Total Protein Albumin Arterial Blood Glucose Urine WBC (Auto) 12/26/19 12/27/19 12/27/19 23:19 05:34 12:02 WBC RBC Hgb Hct MCHC RDW MCV MCH Lymph % (Auto) [place] % (Auto) [place] # Eos # Lymph # (Auto) [place] # (Auto) Eos # (Auto) Seg Neutrophils % Seg Neuts % (Manual) Baso # (Auto) Lymphocytes % (Manual) Monocytes % (Manual) Eosinophils % (Manual) Basophils % (Manual) Seg Neutrophils # Seg Neutrophils # Man Lymphocytes # (Manual) Monocytes # (Manual) Eosinophils # (Manual) Nucleated RBC % Basophils # (Manual) APTT Heparin Anti-Xa Level ABG pH POC ABG pO2 ABG pO2 ABG HCO3 ABG O2 Saturation ABG Base Excess POC ABG pCO2 ABG Hemoglobin ABG Oxyhemoglobin ABG Glucose Oxyhemoglobin Sodium Potassium Chloride Carbon Dioxide BUN Creatinine Glucose POC Glucose 161 H 145 H 157 H Lactic Acid Calcium Phosphorus Magnesium AST ALT Lactate Dehydrogenase CK-MB (CK-2) C-Reactive Protein NT-Pro-B Natriuret Pep Total Protein Albumin Arterial Blood Glucose Urine WBC (Auto) 12/27/19 12/27/19 12/27/19 17:35 20:11 23:00 WBC RBC Hgb Hct MCHC RDW MCV MCH Lymph % (Auto) [place] % (Auto) [place] # Eos # Lymph # (Auto) [place] # (Auto) Eos # (Auto) Seg Neutrophils % Seg Neuts % (Manual) Baso # (Auto) Lymphocytes % (Manual) Monocytes % (Manual) Eosinophils % (Manual) Basophils % (Manual) Seg Neutrophils # Seg Neutrophils # Man Lymphocytes # (Manual) Monocytes # (Manual) Eosinophils # (Manual) Nucleated RBC % Basophils # (Manual) APTT Heparin Anti-Xa Level 0.19 L ABG pH POC ABG pO2 ABG pO2 ABG HCO3 ABG O2 Saturation ABG Base Excess POC ABG pCO2 ABG Hemoglobin ABG Oxyhemoglobin ABG Glucose Oxyhemoglobin Sodium Potassium Chloride Carbon Dioxide BUN Creatinine Glucose POC Glucose 158 H 155 H Lactic Acid Calcium Phosphorus Magnesium AST ALT Lactate Dehydrogenase CK-MB (CK-2) C-Reactive Protein NT-Pro-B Natriuret Pep Total Protein Albumin Arterial Blood Glucose Urine WBC (Auto) 12/27/19 12/28/19 12/28/19 23:45 02:41 02:41 WBC 13.0 H RBC 3.48 L Hgb 9.5 L Hct 30.6 L MCHC 31 L RDW 16.6 H MCV MCH 27 L Lymph % (Auto) 13.0 L [place] % (Auto) 8.0 H [place] # Eos # Lymph # (Auto) [place] # (Auto) 1.0 H Eos # (Auto) Seg Neutrophils % 76.3 H Seg Neuts % (Manual) Baso # (Auto) Lymphocytes % (Manual) Monocytes % (Manual) Eosinophils % (Manual) Basophils % (Manual) Seg Neutrophils # 9.9 H Seg Neutrophils # Man Lymphocytes # (Manual) Monocytes # (Manual) Eosinophils # (Manual) Nucleated RBC % Basophils # (Manual) APTT Heparin Anti-Xa Level ABG pH POC ABG pO2 ABG pO2 ABG HCO3 ABG O2 Saturation ABG Base Excess POC ABG pCO2 ABG Hemoglobin ABG Oxyhemoglobin ABG Glucose Oxyhemoglobin Sodium Potassium Chloride Carbon Dioxide BUN 22 H Creatinine 0.6 L Glucose 101 H POC Glucose 130 H Lactic Acid Calcium Phosphorus Magnesium AST ALT Lactate Dehydrogenase CK-MB (CK-2) C-Reactive Protein NT-Pro-B Natriuret Pep Total Protein Albumin Arterial Blood Glucose Urine WBC (Auto) 12/28/19 12/28/19 12/28/19 06:00 12:34 18:13 WBC RBC Hgb Hct MCHC RDW MCV MCH Lymph % (Auto) [place] % (Auto) [place] # Eos # Lymph # (Auto) [place] # (Auto) Eos # (Auto) Seg Neutrophils % Seg Neuts % (Manual) Baso # (Auto) Lymphocytes % (Manual) Monocytes % (Manual) Eosinophils % (Manual) Basophils % (Manual) Seg Neutrophils # Seg Neutrophils # Man Lymphocytes # (Manual) Monocytes # (Manual) Eosinophils # (Manual) Nucleated RBC % Basophils # (Manual) APTT Heparin Anti-Xa Level ABG pH POC ABG pO2 ABG pO2 ABG HCO3 ABG O2 Saturation ABG Base Excess POC ABG pCO2 ABG Hemoglobin ABG Oxyhemoglobin ABG Glucose Oxyhemoglobin Sodium Potassium Chloride Carbon Dioxide BUN Creatinine Glucose POC Glucose 150 H 161 H 128 H Lactic Acid Calcium Phosphorus Magnesium AST ALT Lactate Dehydrogenase CK-MB (CK-2) C-Reactive Protein NT-Pro-B Natriuret Pep Total Protein Albumin Arterial Blood Glucose Urine WBC (Auto) 12/28/19 12/29/19 12/29/19 23:36 05:21 11:40 WBC RBC Hgb Hct MCHC RDW MCV MCH Lymph % (Auto) [place] % (Auto) [place] # Eos # Lymph # (Auto) [place] # (Auto) Eos # (Auto) Seg Neutrophils % Seg Neuts % (Manual) Baso # (Auto) Lymphocytes % (Manual) Monocytes % (Manual) Eosinophils % (Manual) Basophils % (Manual) Seg Neutrophils # Seg Neutrophils # Man Lymphocytes # (Manual) Monocytes # (Manual) Eosinophils # (Manual) Nucleated RBC % Basophils # (Manual) APTT Heparin Anti-Xa Level ABG pH POC ABG pO2 ABG pO2 ABG HCO3 ABG O2 Saturation ABG Base Excess POC ABG pCO2 ABG Hemoglobin ABG Oxyhemoglobin ABG Glucose Oxyhemoglobin Sodium Potassium Chloride Carbon Dioxide BUN Creatinine Glucose POC Glucose 137 H 136 H 166 H Lactic Acid Calcium Phosphorus Magnesium AST ALT Lactate Dehydrogenase CK-MB (CK-2) C-Reactive Protein NT-Pro-B Natriuret Pep Total Protein Albumin Arterial Blood Glucose Urine WBC (Auto) 12/29/19 12/29/19 12/29/19 17:23 19:21 23:38 WBC RBC Hgb Hct MCHC RDW MCV MCH Lymph % (Auto) [place] % (Auto) [place] # Eos # Lymph # (Auto) [place] # (Auto) Eos # (Auto) Seg Neutrophils % Seg Neuts % (Manual) Baso # (Auto) Lymphocytes % (Manual) Monocytes % (Manual) Eosinophils % (Manual) Basophils % (Manual) Seg Neutrophils # Seg Neutrophils # Man Lymphocytes # (Manual) Monocytes # (Manual) Eosinophils # (Manual) Nucleated RBC % Basophils # (Manual) APTT Heparin Anti-Xa Level 0.20 L ABG pH POC ABG pO2 ABG pO2 ABG HCO3 ABG O2 Saturation ABG Base Excess POC ABG pCO2 ABG Hemoglobin ABG Oxyhemoglobin ABG Glucose Oxyhemoglobin Sodium Potassium Chloride Carbon Dioxide BUN Creatinine Glucose POC Glucose 144 H 141 H Lactic Acid Calcium Phosphorus Magnesium AST ALT Lactate Dehydrogenase CK-MB (CK-2) C-Reactive Protein NT-Pro-B Natriuret Pep Total Protein Albumin Arterial Blood Glucose Urine WBC (Auto) 12/30/19 12/30/19 12/30/19 03:58 03:58 04:59 WBC RBC 3.54 L Hgb 9.8 L Hct 30.7 L MCHC RDW 16.8 H MCV MCH Lymph % (Auto) [place] % (Auto) [place] # Eos # Lymph # (Auto) [place] # (Auto) Eos # (Auto) Seg Neutrophils % Seg Neuts % (Manual) Baso # (Auto) Lymphocytes % (Manual) Monocytes % (Manual) Eosinophils % (Manual) Basophils % (Manual) Seg Neutrophils # Seg Neutrophils # Man Lymphocytes # (Manual) Monocytes # (Manual) Eosinophils # (Manual) Nucleated RBC % Basophils # (Manual) APTT Heparin Anti-Xa Level ABG pH POC ABG pO2 ABG pO2 ABG HCO3 29.8 H ABG O2 Saturation ABG Base Excess 4.8 H POC ABG pCO2 ABG Hemoglobin 11.2 L ABG Oxyhemoglobin ABG Glucose Oxyhemoglobin 93.8 L Sodium Potassium Chloride 97.8 L Carbon Dioxide BUN 26 H Creatinine Glucose 168 H POC Glucose Lactic Acid Calcium Phosphorus Magnesium AST ALT Lactate Dehydrogenase CK-MB (CK-2) C-Reactive Protein NT-Pro-B Natriuret Pep Total Protein Albumin Arterial Blood Glucose Urine WBC (Auto) 12/30/19 12/30/19 12/30/19 05:45 11:34 17:28 WBC RBC Hgb Hct MCHC RDW MCV MCH Lymph % (Auto) [place] % (Auto) [place] # Eos # Lymph # (Auto) [place] # (Auto) Eos # (Auto) Seg Neutrophils % Seg Neuts % (Manual) Baso # (Auto) Lymphocytes % (Manual) Monocytes % (Manual) Eosinophils % (Manual) Basophils % (Manual) Seg Neutrophils # Seg Neutrophils # Man Lymphocytes # (Manual) Monocytes # (Manual) Eosinophils # (Manual) Nucleated RBC % Basophils # (Manual) APTT Heparin Anti-Xa Level ABG pH POC ABG pO2 ABG pO2 ABG HCO3 ABG O2 Saturation ABG Base Excess POC ABG pCO2 ABG Hemoglobin ABG Oxyhemoglobin ABG Glucose Oxyhemoglobin Sodium Potassium Chloride Carbon Dioxide BUN Creatinine Glucose POC Glucose 163 H 180 H 150 H Lactic Acid Calcium Phosphorus Magnesium AST ALT Lactate Dehydrogenase CK-MB (CK-2) C-Reactive Protein NT-Pro-B Natriuret Pep Total Protein Albumin Arterial Blood Glucose Urine WBC (Auto) 12/30/19 12/31/19 12/31/19 23:43 04:55 05:07 WBC RBC Hgb Hct MCHC RDW MCV MCH Lymph % (Auto) [place] % (Auto) [place] # Eos # Lymph # (Auto) [place] # (Auto) Eos # (Auto) Seg Neutrophils % Seg Neuts % (Manual) Baso # (Auto) Lymphocytes % (Manual) Monocytes % (Manual) Eosinophils % (Manual) Basophils % (Manual) Seg Neutrophils # Seg Neutrophils # Man Lymphocytes # (Manual) Monocytes # (Manual) Eosinophils # (Manual) Nucleated RBC % Basophils # (Manual) APTT Heparin Anti-Xa Level ABG pH POC ABG pO2 ABG pO2 ABG HCO3 ABG O2 Saturation ABG Base Excess POC ABG pCO2 ABG Hemoglobin ABG Oxyhemoglobin ABG Glucose Oxyhemoglobin Sodium Potassium 5.6 H D Chloride Carbon Dioxide BUN 33 H Creatinine Glucose 131 H POC Glucose 142 H 134 H Lactic Acid Calcium Phosphorus Magnesium AST ALT Lactate Dehydrogenase CK-MB (CK-2) C-Reactive Protein NT-Pro-B Natriuret Pep Total Protein Albumin Arterial Blood Glucose Urine WBC (Auto) 12/31/19 12/31/19 12/31/19 11:30 17:19 17:36 WBC RBC Hgb Hct MCHC RDW MCV MCH Lymph % (Auto) [place] % (Auto) [place] # Eos # Lymph # (Auto) [place] # (Auto) Eos # (Auto) Seg Neutrophils % Seg Neuts % (Manual) Baso # (Auto) Lymphocytes % (Manual) Monocytes % (Manual) Eosinophils % (Manual) Basophils % (Manual) Seg Neutrophils # Seg Neutrophils # Man Lymphocytes # (Manual) Monocytes # (Manual) Eosinophils # (Manual) Nucleated RBC % Basophils # (Manual) APTT Heparin Anti-Xa Level ABG pH POC ABG pO2 ABG pO2 ABG HCO3 ABG O2 Saturation ABG Base Excess POC ABG pCO2 ABG Hemoglobin ABG Oxyhemoglobin ABG Glucose Oxyhemoglobin Sodium Potassium Chloride Carbon Dioxide BUN 35 H Creatinine Glucose 156 H POC Glucose 158 H 181 H Lactic Acid Calcium Phosphorus Magnesium AST ALT Lactate Dehydrogenase CK-MB (CK-2) C-Reactive Protein NT-Pro-B Natriuret Pep Total Protein Albumin Arterial Blood Glucose Urine WBC (Auto) 12/31/19 12/31/19 12/31/19 18:16 19:41 21:53 WBC RBC Hgb Hct MCHC RDW MCV MCH Lymph % (Auto) [place] % (Auto) [place] # Eos # Lymph # (Auto) [place] # (Auto) Eos # (Auto) Seg Neutrophils % Seg Neuts % (Manual) Baso # (Auto) Lymphocytes % (Manual) Monocytes % (Manual) Eosinophils % (Manual) Basophils % (Manual) Seg Neutrophils # Seg Neutrophils # Man Lymphocytes # (Manual) Monocytes # (Manual) Eosinophils # (Manual) Nucleated RBC % Basophils # (Manual) APTT Heparin Anti-Xa Level 0.20 L ABG pH POC ABG pO2 ABG pO2 ABG HCO3 ABG O2 Saturation ABG Base Excess POC ABG pCO2 ABG Hemoglobin ABG Oxyhemoglobin ABG Glucose Oxyhemoglobin Sodium Potassium Chloride Carbon Dioxide BUN 34 H Creatinine Glucose 169 H POC Glucose 141 H Lactic Acid Calcium Phosphorus Magnesium AST ALT Lactate Dehydrogenase CK-MB (CK-2) C-Reactive Protein NT-Pro-B Natriuret Pep Total Protein Albumin Arterial Blood Glucose Urine WBC (Auto) 12/31/19 01/01/20 01/01/20 23:51 05:17 10:40 WBC RBC Hgb Hct MCHC RDW MCV MCH Lymph % (Auto) [place] % (Auto) [place] # Eos # Lymph # (Auto) [place] # (Auto) Eos # (Auto) Seg Neutrophils % Seg Neuts % (Manual) Baso # (Auto) Lymphocytes % (Manual) Monocytes % (Manual) Eosinophils % (Manual) Basophils % (Manual) Seg Neutrophils # Seg Neutrophils # Man Lymphocytes # (Manual) Monocytes # (Manual) Eosinophils # (Manual) Nucleated RBC % Basophils # (Manual) APTT Heparin Anti-Xa Level ABG pH POC ABG pO2 ABG pO2 ABG HCO3 ABG O2 Saturation ABG Base Excess POC ABG pCO2 ABG Hemoglobin ABG Oxyhemoglobin ABG Glucose Oxyhemoglobin Sodium Potassium Chloride Carbon Dioxide BUN 31 H Creatinine 0.7 L Glucose 137 H POC Glucose 131 H 155 H Lactic Acid Calcium Phosphorus Magnesium AST 73 H ALT 97 H Lactate Dehydrogenase CK-MB (CK-2) C-Reactive Protein NT-Pro-B Natriuret Pep 3866 H Total Protein Albumin 2.8 L Arterial Blood Glucose Urine WBC (Auto) 01/01/20 01/01/20 01/01/20 12:26 15:33 17:53 WBC 14.3 H RBC 3.35 L Hgb 9.1 L Hct 28.8 L MCHC RDW 17.0 H MCV MCH 27 L Lymph % (Auto) 7.0 L [place] % (Auto) 7.6 H [place] # Eos # Lymph # (Auto) 1.0 L [place] # (Auto) 1.1 H Eos # (Auto) Seg Neutrophils % 83.3 H Seg Neuts % (Manual) Baso # (Auto) Lymphocytes % (Manual) Monocytes % (Manual) Eosinophils % (Manual) Basophils % (Manual) Seg Neutrophils # 12.0 H Seg Neutrophils # Man Lymphocytes # (Manual) Monocytes # (Manual) Eosinophils # (Manual) Nucleated RBC % Basophils # (Manual) APTT Heparin Anti-Xa Level ABG pH POC ABG pO2 ABG pO2 ABG HCO3 ABG O2 Saturation ABG Base Excess POC ABG pCO2 ABG Hemoglobin ABG Oxyhemoglobin ABG Glucose Oxyhemoglobin Sodium Potassium Chloride Carbon Dioxide BUN Creatinine Glucose POC Glucose 128 H 128 H Lactic Acid Calcium Phosphorus Magnesium AST ALT Lactate Dehydrogenase CK-MB (CK-2) C-Reactive Protein NT-Pro-B Natriuret Pep Total Protein Albumin Arterial Blood Glucose Urine WBC (Auto) 01/01/20 01/02/20 01/02/20 23:04 05:39 07:00 WBC RBC Hgb Hct MCHC RDW MCV MCH Lymph % (Auto) [place] % (Auto) [place] # Eos # Lymph # (Auto) [place] # (Auto) Eos # (Auto) Seg Neutrophils % Seg Neuts % (Manual) Baso # (Auto) Lymphocytes % (Manual) Monocytes % (Manual) Eosinophils % (Manual) Basophils % (Manual) Seg Neutrophils # Seg Neutrophils # Man Lymphocytes # (Manual) Monocytes # (Manual) Eosinophils # (Manual) Nucleated RBC % Basophils # (Manual) APTT Heparin Anti-Xa Level 0.13 L ABG pH POC ABG pO2 ABG pO2 ABG HCO3 ABG O2 Saturation ABG Base Excess POC ABG pCO2 ABG Hemoglobin ABG Oxyhemoglobin ABG Glucose Oxyhemoglobin Sodium Potassium Chloride Carbon Dioxide BUN Creatinine Glucose POC Glucose 120 H 169 H Lactic Acid Calcium Phosphorus Magnesium AST ALT Lactate Dehydrogenase CK-MB (CK-2) C-Reactive Protein NT-Pro-B Natriuret Pep Total Protein Albumin Arterial Blood Glucose Urine WBC (Auto) 01/02/20 01/02/20 01/02/20 12:15 14:06 17:58 WBC RBC Hgb Hct MCHC RDW MCV MCH Lymph % (Auto) [place] % (Auto) [place] # Eos # Lymph # (Auto) [place] # (Auto) Eos # (Auto) Seg Neutrophils % Seg Neuts % (Manual) Baso # (Auto) Lymphocytes % (Manual) Monocytes % (Manual) Eosinophils % (Manual) Basophils % (Manual) Seg Neutrophils # Seg Neutrophils # Man Lymphocytes # (Manual) Monocytes # (Manual) Eosinophils # (Manual) Nucleated RBC % Basophils # (Manual) APTT Heparin Anti-Xa Level < 0.10 L ABG pH POC ABG pO2 ABG pO2 ABG HCO3 ABG O2 Saturation ABG Base Excess POC ABG pCO2 ABG Hemoglobin ABG Oxyhemoglobin ABG Glucose Oxyhemoglobin Sodium Potassium Chloride Carbon Dioxide BUN Creatinine Glucose POC Glucose 190 H 198 H Lactic Acid Calcium Phosphorus Magnesium AST ALT Lactate Dehydrogenase CK-MB (CK-2) C-Reactive Protein NT-Pro-B Natriuret Pep Total Protein Albumin Arterial Blood Glucose Urine WBC (Auto) 01/02/20 01/02/20 01/03/20 21:43 23:33 05:42 WBC RBC Hgb Hct MCHC RDW MCV MCH Lymph % (Auto) [place] % (Auto) [place] # Eos # Lymph # (Auto) [place] # (Auto) Eos # (Auto) Seg Neutrophils % Seg Neuts % (Manual) Baso # (Auto) Lymphocytes % (Manual) Monocytes % (Manual) Eosinophils % (Manual) Basophils % (Manual) Seg Neutrophils # Seg Neutrophils # Man Lymphocytes # (Manual) Monocytes # (Manual) Eosinophils # (Manual) Nucleated RBC % Basophils # (Manual) APTT Heparin Anti-Xa Level 0.10 L ABG pH POC ABG pO2 ABG pO2 ABG HCO3 ABG O2 Saturation ABG Base Excess POC ABG pCO2 ABG Hemoglobin ABG Oxyhemoglobin ABG Glucose Oxyhemoglobin Sodium Potassium Chloride Carbon Dioxide BUN Creatinine Glucose POC Glucose 180 H 163 H Lactic Acid Calcium Phosphorus Magnesium AST ALT Lactate Dehydrogenase CK-MB (CK-2) C-Reactive Protein NT-Pro-B Natriuret Pep Total Protein Albumin Arterial Blood Glucose Urine WBC (Auto) 01/03/20 01/03/20 01/03/20 06:50 07:25 07:45 WBC 12.1 H RBC 3.35 L Hgb 9.0 L Hct 28.9 L MCHC 31 L RDW 16.6 H MCV MCH 27 L Lymph % (Auto) 13.0 L [place] % (Auto) 8.6 H [place] # Eos # Lymph # (Auto) [place] # (Auto) 1.0 H Eos # (Auto) Seg Neutrophils % 75.9 H Seg Neuts % (Manual) Baso # (Auto) Lymphocytes % (Manual) Monocytes % (Manual) Eosinophils % (Manual) Basophils % (Manual) Seg Neutrophils # 9.2 H Seg Neutrophils # Man Lymphocytes # (Manual) Monocytes # (Manual) Eosinophils # (Manual) Nucleated RBC % Basophils # (Manual) APTT Heparin Anti-Xa Level 0.29 L ABG pH POC ABG pO2 ABG pO2 ABG HCO3 ABG O2 Saturation ABG Base Excess POC ABG pCO2 ABG Hemoglobin ABG Oxyhemoglobin ABG Glucose Oxyhemoglobin Sodium Potassium 3.3 L D Chloride Carbon Dioxide 35 H D BUN 23 H Creatinine 0.6 L Glucose 149 H POC Glucose Lactic Acid Calcium Phosphorus Magnesium AST ALT 88 H Lactate Dehydrogenase CK-MB (CK-2) C-Reactive Protein NT-Pro-B Natriuret Pep Total Protein 6.2 L Albumin 2.9 L Arterial Blood Glucose Urine WBC (Auto) 01/03/20 01/03/2001/02/20 12:05 17:42 18:30 WBC RBC Hgb Hct MCHC RDW MCV MCH Lymph % (Auto) [place] % (Auto) [place] # Eos # Lymph # (Auto) [place] # (Auto) Eos # (Auto) Seg Neutrophils % Seg Neuts % (Manual) Baso # (Auto) Lymphocytes % (Manual) Monocytes % (Manual) Eosinophils % (Manual) Basophils % (Manual) Seg Neutrophils # Seg Neutrophils # Man Lymphocytes # (Manual) Monocytes # (Manual) Eosinophils # (Manual) Nucleated RBC % Basophils # (Manual) APTT Heparin Anti-Xa Level ABG pH POC ABG pO2 ABG pO2 70.7 L ABG HCO3 36.1 H ABG O2 Saturation 94.4 L ABG Base Excess 10.0 H POC ABG pCO2 ABG Hemoglobin 9.7 L ABG Oxyhemoglobin ABG Glucose Oxyhemoglobin 91.8 L Sodium Potassium Chloride Carbon Dioxide BUN Creatinine Glucose POC Glucose 128 H 132 H Lactic Acid Calcium Phosphorus Magnesium AST ALT Lactate Dehydrogenase CK-MB (CK-2) C-Reactive Protein NT-Pro-B Natriuret Pep Total Protein Albumin Arterial Blood Glucose Urine WBC (Auto) 01/04/20 01/04/20 01/04/20 00:10 04:26 05:23 WBC RBC Hgb Hct MCHC RDW MCV MCH Lymph % (Auto) [place] % (Auto) [place] # Eos # Lymph # (Auto) [place] # (Auto) Eos # (Auto) Seg Neutrophils % Seg Neuts % (Manual) Baso # (Auto) Lymphocytes % (Manual) Monocytes % (Manual) Eosinophils % (Manual) Basophils % (Manual) Seg Neutrophils # Seg Neutrophils # Man Lymphocytes # (Manual) Monocytes # (Manual) Eosinophils # (Manual) Nucleated RBC % Basophils # (Manual) APTT Heparin Anti-Xa Level 0.16 L ABG pH POC ABG pO2 ABG pO2 ABG HCO3 ABG O2 Saturation ABG Base Excess POC ABG pCO2 ABG Hemoglobin ABG Oxyhemoglobin ABG Glucose Oxyhemoglobin Sodium Potassium Chloride Carbon Dioxide BUN Creatinine Glucose POC Glucose 121 H 119 H Lactic Acid Calcium Phosphorus Magnesium AST ALT Lactate Dehydrogenase CK-MB (CK-2) C-Reactive Protein NT-Pro-B Natriuret Pep Total Protein Albumin Arterial Blood Glucose Urine WBC (Auto) 01/04/20 01/04/20 01/04/20 09:50 09:50 12:18 WBC 15.4 H RBC 3.30 L Hgb 8.7 L Hct 28.2 L MCHC 31 L RDW 17.0 H MCV MCH 26 L Lymph % (Auto) [place] % (Auto) 7.6 H [place] # Eos # Lymph # (Auto) [place] # (Auto) 1.2 H Eos # (Auto) Seg Neutrophils % 75.4 H Seg Neuts % (Manual) Baso # (Auto) Lymphocytes % (Manual) Monocytes % (Manual) Eosinophils % (Manual) Basophils % (Manual) Seg Neutrophils # 11.6 H Seg Neutrophils # Man Lymphocytes # (Manual) Monocytes # (Manual) Eosinophils # (Manual) Nucleated RBC % Basophils # (Manual) APTT Heparin Anti-Xa Level ABG pH POC ABG pO2 ABG pO2 ABG HCO3 ABG O2 Saturation ABG Base Excess POC ABG pCO2 ABG Hemoglobin ABG Oxyhemoglobin ABG Glucose Oxyhemoglobin Sodium 148 H Potassium 3.5 L Chloride Carbon Dioxide 32 H BUN Creatinine 0.6 L Glucose 114 H POC Glucose 111 H Lactic Acid Calcium Phosphorus Magnesium AST ALT 59 H Lactate Dehydrogenase CK-MB (CK-2) C-Reactive Protein NT-Pro-B Natriuret Pep Total Protein Albumin 2.6 L Arterial Blood Glucose Urine WBC (Auto) 01/05/20 01/05/20 01/05/20 04:05 04:05 05:19 WBC 11.7 H RBC 3.50 L Hgb 9.3 L Hct 29.9 L MCHC 31 L RDW 16.6 H MCV MCH 27 L Lymph % (Auto) 13.1 L [place] % (Auto) 9.7 H [place] # Eos # Lymph # (Auto) [place] # (Auto) 1.1 H Eos # (Auto) Seg Neutrophils % 74.0 H Seg Neuts % (Manual) Baso # (Auto) Lymphocytes % (Manual) Monocytes % (Manual) Eosinophils % (Manual) Basophils % (Manual) Seg Neutrophils # 8.6 H Seg Neutrophils # Man Lymphocytes # (Manual) Monocytes # (Manual) Eosinophils # (Manual) Nucleated RBC % Basophils # (Manual) APTT Heparin Anti-Xa Level ABG pH POC ABG pO2 ABG pO2 ABG HCO3 ABG O2 Saturation ABG Base Excess POC ABG pCO2 ABG Hemoglobin ABG Oxyhemoglobin ABG Glucose Oxyhemoglobin Sodium 151 H Potassium Chloride Carbon Dioxide 34 H BUN Creatinine 0.7 L Glucose POC Glucose 112 H Lactic Acid Calcium Phosphorus Magnesium AST ALT 59 H Lactate Dehydrogenase CK-MB (CK-2) C-Reactive Protein NT-Pro-B Natriuret Pep Total Protein 5.8 L Albumin 2.6 L Arterial Blood Glucose Urine WBC (Auto) 01/05/20 01/06/20 01/06/20 16:04 00:23 04:44 WBC RBC 3.36 L Hgb 8.9 L Hct 28.7 L MCHC 31 L RDW 16.9 H MCV MCH 26 L Lymph % (Auto) [place] % (Auto) 9.4 H [place] # Eos # Lymph # (Auto) [place] # (Auto) Eos # (Auto) Seg Neutrophils % Seg Neuts % (Manual) Baso # (Auto) Lymphocytes % (Manual) Monocytes % (Manual) Eosinophils % (Manual) Basophils % (Manual) Seg Neutrophils # Seg Neutrophils # Man Lymphocytes # (Manual) Monocytes # (Manual) Eosinophils # (Manual) Nucleated RBC % Basophils # (Manual) APTT Heparin Anti-Xa Level ABG pH POC ABG pO2 ABG pO2 ABG HCO3 ABG O2 Saturation ABG Base Excess POC ABG pCO2 ABG Hemoglobin ABG Oxyhemoglobin ABG Glucose Oxyhemoglobin Sodium 151 H Potassium 3.2 L Chloride Carbon Dioxide 34 H BUN Creatinine 0.6 L Glucose POC Glucose 107 H Lactic Acid Calcium Phosphorus Magnesium AST ALT Lactate Dehydrogenase CK-MB (CK-2) C-Reactive Protein NT-Pro-B Natriuret Pep Total Protein Albumin Arterial Blood Glucose Urine WBC (Auto) 01/06/20 01/06/20 01/06/20 04:44 05:33 12:04 WBC RBC Hgb Hct MCHC RDW MCV MCH Lymph % (Auto) [place] % (Auto) [place] # Eos # Lymph # (Auto) [place] # (Auto) Eos # (Auto) Seg Neutrophils % Seg Neuts % (Manual) Baso # (Auto) Lymphocytes % (Manual) Monocytes % (Manual) Eosinophils % (Manual) Basophils % (Manual) Seg Neutrophils # Seg Neutrophils # Man Lymphocytes # (Manual) Monocytes # (Manual) Eosinophils # (Manual) Nucleated RBC % Basophils # (Manual) APTT Heparin Anti-Xa Level ABG pH POC ABG pO2 ABG pO2 ABG HCO3 ABG O2 Saturation ABG Base Excess POC ABG pCO2 ABG Hemoglobin ABG Oxyhemoglobin ABG Glucose Oxyhemoglobin Sodium 151 H Potassium 3.4 L Chloride Carbon Dioxide 33 H BUN Creatinine 0.6 L Glucose 118 H POC Glucose 118 H 123 H Lactic Acid Calcium Phosphorus Magnesium AST ALT Lactate Dehydrogenase CK-MB (CK-2) C-Reactive Protein NT-Pro-B Natriuret Pep Total Protein 6.2 L Albumin 2.6 L Arterial Blood Glucose Urine WBC (Auto) 01/06/20 01/07/20 01/07/20 17:54 00:06 04:10 WBC RBC 3.42 L Hgb 8.9 L Hct 29.0 L MCHC 31 L RDW 17.1 H MCV MCH 26 L Lymph % (Auto) [place] % (Auto) 8.4 H [place] # Eos # Lymph # (Auto) [place] # (Auto) Eos # (Auto) Seg Neutrophils % Seg Neuts % (Manual) Baso # (Auto) Lymphocytes % (Manual) Monocytes % (Manual) Eosinophils % (Manual) Basophils % (Manual) Seg Neutrophils # Seg Neutrophils # Man Lymphocytes # (Manual) Monocytes # (Manual) Eosinophils # (Manual) Nucleated RBC % Basophils # (Manual) APTT Heparin Anti-Xa Level ABG pH POC ABG pO2 ABG pO2 ABG HCO3 ABG O2 Saturation ABG Base Excess POC ABG pCO2 ABG Hemoglobin ABG Oxyhemoglobin ABG Glucose Oxyhemoglobin Sodium Potassium Chloride Carbon Dioxide BUN Creatinine Glucose POC Glucose 112 H 126 H Lactic Acid Calcium Phosphorus Magnesium AST ALT Lactate Dehydrogenase CK-MB (CK-2) C-Reactive Protein NT-Pro-B Natriuret Pep Total Protein Albumin Arterial Blood Glucose Urine WBC (Auto) 01/07/20 01/07/20 01/07/20 04:10 05:59 12:27 WBC RBC Hgb Hct MCHC RDW MCV MCH Lymph % (Auto) [place] % (Auto) [place] # Eos # Lymph # (Auto) [place] # (Auto) Eos # (Auto) Seg Neutrophils % Seg Neuts % (Manual) Baso # (Auto) Lymphocytes % (Manual) Monocytes % (Manual) Eosinophils % (Manual) Basophils % (Manual) Seg Neutrophils # Seg Neutrophils # Man Lymphocytes # (Manual) Monocytes # (Manual) Eosinophils # (Manual) Nucleated RBC % Basophils # (Manual) APTT Heparin Anti-Xa Level ABG pH POC ABG pO2 ABG pO2 ABG HCO3 ABG O2 Saturation ABG Base Excess POC ABG pCO2 ABG Hemoglobin ABG Oxyhemoglobin ABG Glucose Oxyhemoglobin Sodium 153 H Potassium 3.5 L Chloride Carbon Dioxide 34 H BUN Creatinine 0.6 L Glucose 121 H POC Glucose 121 H 126 H Lactic Acid Calcium Phosphorus Magnesium AST ALT Lactate Dehydrogenase CK-MB (CK-2) C-Reactive Protein NT-Pro-B Natriuret Pep Total Protein 5.9 L Albumin 2.4 L Arterial Blood Glucose Urine WBC (Auto) 01/07/20 01/08/20 01/08/20 18:12 00:03 05:41 WBC RBC Hgb Hct MCHC RDW MCV MCH Lymph % (Auto) [place] % (Auto) [place] # Eos # Lymph # (Auto) [place] # (Auto) Eos # (Auto) Seg Neutrophils % Seg Neuts % (Manual) Baso # (Auto) Lymphocytes % (Manual) Monocytes % (Manual) Eosinophils % (Manual) Basophils % (Manual) Seg Neutrophils # Seg Neutrophils # Man Lymphocytes # (Manual) Monocytes # (Manual) Eosinophils # (Manual) Nucleated RBC % Basophils # (Manual) APTT Heparin Anti-Xa Level ABG pH POC ABG pO2 ABG pO2 ABG HCO3 ABG O2 Saturation ABG Base Excess POC ABG pCO2 ABG Hemoglobin ABG Oxyhemoglobin ABG Glucose Oxyhemoglobin Sodium Potassium Chloride Carbon Dioxide BUN Creatinine Glucose POC Glucose 124 H 130 H 138 H Lactic Acid Calcium Phosphorus Magnesium AST ALT Lactate Dehydrogenase CK-MB (CK-2) C-Reactive Protein NT-Pro-B Natriuret Pep Total Protein Albumin Arterial Blood Glucose Urine WBC (Auto) 01/08/20 01/08/20 01/08/20 09:28 11:42 18:21 WBC RBC Hgb Hct MCHC RDW MCV MCH Lymph % (Auto) [place] % (Auto) [place] # Eos # Lymph # (Auto) [place] # (Auto) Eos # (Auto) Seg Neutrophils % Seg Neuts % (Manual) Baso # (Auto) Lymphocytes % (Manual) Monocytes % (Manual) Eosinophils % (Manual) Basophils % (Manual) Seg Neutrophils # Seg Neutrophils # Man Lymphocytes # (Manual) Monocytes # (Manual) Eosinophils # (Manual) Nucleated RBC % Basophils # (Manual) APTT Heparin Anti-Xa Level ABG pH POC ABG pO2 ABG pO2 ABG HCO3 ABG O2 Saturation ABG Base Excess POC ABG pCO2 ABG Hemoglobin ABG Oxyhemoglobin ABG Glucose Oxyhemoglobin Sodium Potassium Chloride Carbon Dioxide BUN Creatinine Glucose POC Glucose 181 H 150 H 129 H Lactic Acid Calcium Phosphorus Magnesium AST ALT Lactate Dehydrogenase CK-MB (CK-2) C-Reactive Protein NT-Pro-B Natriuret Pep Total Protein Albumin Arterial Blood Glucose Urine WBC (Auto) 01/08/20 01/08/20 01/09/20 19:25 23:55 04:11 WBC RBC 3.43 L Hgb 8.9 L Hct 28.7 L MCHC 31 L RDW 17.6 H MCV MCH 26 L Lymph % (Auto) [place] % (Auto) 8.6 H [place] # Eos # Lymph # (Auto) [place] # (Auto) Eos # (Auto) Seg Neutrophils % Seg Neuts % (Manual) Baso # (Auto) Lymphocytes % (Manual) Monocytes % (Manual) Eosinophils % (Manual) Basophils % (Manual) Seg Neutrophils # Seg Neutrophils # Man Lymphocytes # (Manual) Monocytes # (Manual) Eosinophils # (Manual) Nucleated RBC % Basophils # (Manual) APTT Heparin Anti-Xa Level ABG pH POC ABG pO2 ABG pO2 ABG HCO3 ABG O2 Saturation ABG Base Excess POC ABG pCO2 ABG Hemoglobin ABG Oxyhemoglobin ABG Glucose Oxyhemoglobin Sodium Potassium Chloride Carbon Dioxide BUN Creatinine 0.7 L Glucose 117 H POC Glucose 132 H Lactic Acid Calcium Phosphorus Magnesium AST ALT Lactate Dehydrogenase CK-MB (CK-2) C-Reactive Protein NT-Pro-B Natriuret Pep Total Protein Albumin Arterial Blood Glucose Urine WBC (Auto) 01/09/20 01/09/20 01/09/20 04:11 05:38 22:58 WBC RBC Hgb Hct MCHC RDW MCV MCH Lymph % (Auto) [place] % (Auto) [place] # Eos # Lymph # (Auto) [place] # (Auto) Eos # (Auto) Seg Neutrophils % Seg Neuts % (Manual) Baso # (Auto) Lymphocytes % (Manual) Monocytes % (Manual) Eosinophils % (Manual) Basophils % (Manual) Seg Neutrophils # Seg Neutrophils # Man Lymphocytes # (Manual) Monocytes # (Manual) Eosinophils # (Manual) Nucleated RBC % Basophils # (Manual) APTT Heparin Anti-Xa Level ABG pH POC ABG pO2 ABG pO2 ABG HCO3 ABG O2 Saturation ABG Base Excess POC ABG pCO2 ABG Hemoglobin ABG Oxyhemoglobin ABG Glucose Oxyhemoglobin Sodium 147 H Potassium 3.3 L D Chloride Carbon Dioxide 32 H BUN Creatinine 0.6 L Glucose 106 H POC Glucose 107 H 113 H Lactic Acid Calcium Phosphorus Magnesium AST ALT Lactate Dehydrogenase CK-MB (CK-2) C-Reactive Protein NT-Pro-B Natriuret Pep Total Protein Albumin Arterial Blood Glucose Urine WBC (Auto) 01/10/20 01/10/20 01/10/20 04:05 11:36 17:54 WBC RBC Hgb Hct MCHC RDW MCV MCH Lymph % (Auto) [place] % (Auto) [place] # Eos # Lymph # (Auto) [place] # (Auto) Eos # (Auto) Seg Neutrophils % Seg Neuts % (Manual) Baso # (Auto) Lymphocytes % (Manual) Monocytes % (Manual) Eosinophils % (Manual) Basophils % (Manual) Seg Neutrophils # Seg Neutrophils # Man Lymphocytes # (Manual) Monocytes # (Manual) Eosinophils # (Manual) Nucleated RBC % Basophils # (Manual) APTT Heparin Anti-Xa Level ABG pH POC ABG pO2 ABG pO2 ABG HCO3 ABG O2 Saturation ABG Base Excess POC ABG pCO2 ABG Hemoglobin ABG Oxyhemoglobin ABG Glucose Oxyhemoglobin Sodium Potassium Chloride Carbon Dioxide BUN Creatinine 0.7 L Glucose 110 H POC Glucose 129 H 117 H Lactic Acid Calcium Phosphorus Magnesium AST ALT Lactate Dehydrogenase CK-MB (CK-2) C-Reactive Protein NT-Pro-B Natriuret Pep Total Protein Albumin Arterial Blood Glucose Urine WBC (Auto) 01/10/20 01/11/20 01/11/20 23:52 03:19 12:09 WBC RBC Hgb Hct MCHC RDW MCV MCH Lymph % (Auto) [place] % (Auto) [place] # Eos # Lymph # (Auto) [place] # (Auto) Eos # (Auto) Seg Neutrophils % Seg Neuts % (Manual) Baso # (Auto) Lymphocytes % (Manual) Monocytes % (Manual) Eosinophils % (Manual) Basophils % (Manual) Seg Neutrophils # Seg Neutrophils # Man Lymphocytes # (Manual) Monocytes # (Manual) Eosinophils # (Manual) Nucleated RBC % Basophils # (Manual) APTT Heparin Anti-Xa Level ABG pH POC ABG pO2 ABG pO2 ABG HCO3 ABG O2 Saturation ABG Base Excess POC ABG pCO2 ABG Hemoglobin ABG Oxyhemoglobin ABG Glucose Oxyhemoglobin Sodium Potassium Chloride Carbon Dioxide BUN Creatinine Glucose POC Glucose 117 H 136 H 115 H Lactic Acid Calcium Phosphorus Magnesium AST ALT Lactate Dehydrogenase CK-MB (CK-2) C-Reactive Protein NT-Pro-B Natriuret Pep Total Protein Albumin Arterial Blood Glucose Urine WBC (Auto) 01/11/20 01/11/20 01/12/20 18:27 23:28 00:23 WBC RBC Hgb 9.8 L Hct 31.6 L MCHC 31 L RDW 17.8 H MCV 83 L MCH 26 L Lymph % (Auto) [place] % (Auto) 8.0 H [place] # Eos # Lymph # (Auto) [place] # (Auto) Eos # (Auto) Seg Neutrophils % Seg Neuts % (Manual) Baso # (Auto) Lymphocytes % (Manual) Monocytes % (Manual) Eosinophils % (Manual) Basophils % (Manual) Seg Neutrophils # Seg Neutrophils # Man Lymphocytes # (Manual) Monocytes # (Manual) Eosinophils # (Manual) Nucleated RBC % Basophils # (Manual) APTT Heparin Anti-Xa Level ABG pH POC ABG pO2 ABG pO2 ABG HCO3 ABG O2 Saturation ABG Base Excess POC ABG pCO2 ABG Hemoglobin ABG Oxyhemoglobin ABG Glucose Oxyhemoglobin Sodium Potassium Chloride Carbon Dioxide BUN Creatinine Glucose POC Glucose 118 H 122 H Lactic Acid Calcium Phosphorus Magnesium AST ALT Lactate Dehydrogenase CK-MB (CK-2) C-Reactive Protein NT-Pro-B Natriuret Pep Total Protein Albumin Arterial Blood Glucose Urine WBC (Auto) 01/12/20 01/12/20 01/12/20 00:23 04:18 04:18 WBC RBC Hgb 9.6 L Hct 30.9 L MCHC 31 L RDW 17.3 H MCV 81 L MCH 25 L Lymph % (Auto) [place] % (Auto) [place] # Eos # Lymph # (Auto) [place] # (Auto) Eos # (Auto) Seg Neutrophils % Seg Neuts % (Manual) Baso # (Auto) Lymphocytes % (Manual) Monocytes % (Manual) Eosinophils % (Manual) Basophils % (Manual) Seg Neutrophils # Seg Neutrophils # Man Lymphocytes # (Manual) Monocytes # (Manual) Eosinophils # (Manual) Nucleated RBC % Basophils # (Manual) APTT Heparin Anti-Xa Level ABG pH POC ABG pO2 ABG pO2 ABG HCO3 ABG O2 Saturation ABG Base Excess POC ABG pCO2 ABG Hemoglobin ABG Oxyhemoglobin ABG Glucose Oxyhemoglobin Sodium Potassium Chloride Carbon Dioxide BUN Creatinine 0.7 L 0.7 L Glucose 111 H 108 H POC Glucose Lactic Acid Calcium Phosphorus Magnesium AST ALT Lactate Dehydrogenase CK-MB (CK-2) C-Reactive Protein NT-Pro-B Natriuret Pep Total Protein Albumin 2.6 L Arterial Blood Glucose Urine WBC (Auto) 01/12/20 01/12/20 01/12/20 06:03 12:27 13:58 WBC RBC Hgb Hct MCHC RDW MCV MCH Lymph % (Auto) [place] % (Auto) [place] # Eos # Lymph # (Auto) [place] # (Auto) Eos # (Auto) Seg Neutrophils % Seg Neuts % (Manual) Baso # (Auto) Lymphocytes % (Manual) Monocytes % (Manual) Eosinophils % (Manual) Basophils % (Manual) Seg Neutrophils # Seg Neutrophils # Man Lymphocytes # (Manual) Monocytes # (Manual) Eosinophils # (Manual) Nucleated RBC % Basophils # (Manual) APTT Heparin Anti-Xa Level ABG pH 7.453 H POC ABG pO2 76.6 L ABG pO2 ABG HCO3 ABG O2 Saturation ABG Base Excess POC ABG pCO2 ABG Hemoglobin 10.3 L ABG Oxyhemoglobin ABG Glucose 99 H Oxyhemoglobin Sodium Potassium Chloride Carbon Dioxide BUN Creatinine Glucose POC Glucose 128 H 121 H Lactic Acid Calcium Phosphorus Magnesium AST ALT Lactate Dehydrogenase CK-MB (CK-2) C-Reactive Protein NT-Pro-B Natriuret Pep Total Protein Albumin Arterial Blood Glucose 99 H Urine WBC (Auto) 01/12/20 01/13/20 01/13/20 18:24 12:01 17:46 WBC RBC Hgb Hct MCHC RDW MCV MCH Lymph % (Auto) [place] % (Auto) [place] # Eos # Lymph # (Auto) [place] # (Auto) Eos # (Auto) Seg Neutrophils % Seg Neuts % (Manual) Baso # (Auto) Lymphocytes % (Manual) Monocytes % (Manual) Eosinophils % (Manual) Basophils % (Manual) Seg Neutrophils # Seg Neutrophils # Man Lymphocytes # (Manual) Monocytes # (Manual) Eosinophils # (Manual) Nucleated RBC % Basophils # (Manual) APTT Heparin Anti-Xa Level ABG pH POC ABG pO2 ABG pO2 ABG HCO3 ABG O2 Saturation ABG Base Excess POC ABG pCO2 ABG Hemoglobin ABG Oxyhemoglobin ABG Glucose Oxyhemoglobin Sodium Potassium Chloride Carbon Dioxide BUN Creatinine Glucose POC Glucose 119 H 107 H 124 H Lactic Acid Calcium Phosphorus Magnesium AST ALT Lactate Dehydrogenase CK-MB (CK-2) C-Reactive Protein NT-Pro-B Natriuret Pep Total Protein Albumin Arterial Blood Glucose Urine WBC (Auto) 01/13/20 01/14/20 01/14/20 20:40 00:10 05:33 WBC RBC Hgb Hct MCHC RDW MCV MCH Lymph % (Auto) [place] % (Auto) [place] # Eos # Lymph # (Auto) [place] # (Auto) Eos # (Auto) Seg Neutrophils % Seg Neuts % (Manual) Baso # (Auto) Lymphocytes % (Manual) Monocytes % (Manual) Eosinophils % (Manual) Basophils % (Manual) Seg Neutrophils # Seg Neutrophils # Man Lymphocytes # (Manual) Monocytes # (Manual) Eosinophils # (Manual) Nucleated RBC % Basophils # (Manual) APTT Heparin Anti-Xa Level ABG pH POC ABG pO2 ABG pO2 65.3 L ABG HCO3 31.8 H ABG O2 Saturation 93.5 L ABG Base Excess 6.7 H POC ABG pCO2 ABG Hemoglobin 13.3 L ABG Oxyhemoglobin ABG Glucose Oxyhemoglobin 90.9 L Sodium Potassium Chloride Carbon Dioxide BUN Creatinine Glucose POC Glucose 111 H 111 H Lactic Acid Calcium Phosphorus Magnesium AST ALT Lactate Dehydrogenase CK-MB (CK-2) C-Reactive Protein NT-Pro-B Natriuret Pep Total Protein Albumin Arterial Blood Glucose Urine WBC (Auto) 01/14/20 01/14/20 01/14/20 12:10 16:14 16:14 WBC RBC Hgb 10.6 L Hct 34.2 L MCHC 31 L RDW 18.3 H MCV 83 L MCH 26 L Lymph % (Auto) [place] % (Auto) 7.4 H [place] # Eos # Lymph # (Auto) [place] # (Auto) Eos # (Auto) Seg Neutrophils % 71.9 H Seg Neuts % (Manual) Baso # (Auto) Lymphocytes % (Manual) Monocytes % (Manual) Eosinophils % (Manual) Basophils % (Manual) Seg Neutrophils # Seg Neutrophils # Man Lymphocytes # (Manual) Monocytes # (Manual) Eosinophils # (Manual) Nucleated RBC % Basophils # (Manual) APTT Heparin Anti-Xa Level ABG pH POC ABG pO2 ABG pO2 ABG HCO3 ABG O2 Saturation ABG Base Excess POC ABG pCO2 ABG Hemoglobin ABG Oxyhemoglobin ABG Glucose Oxyhemoglobin Sodium Potassium Chloride Carbon Dioxide 31 H BUN Creatinine 0.6 L Glucose 131 H POC Glucose 139 H Lactic Acid Calcium Phosphorus Magnesium AST ALT Lactate Dehydrogenase CK-MB (CK-2) C-Reactive Protein NT-Pro-B Natriuret Pep Total Protein Albumin Arterial Blood Glucose Urine WBC (Auto) 01/14/20 01/15/20 01/15/20 18:05 00:52 05:35 WBC RBC Hgb Hct MCHC RDW MCV MCH Lymph % (Auto) [place] % (Auto) [place] # Eos # Lymph # (Auto) [place] # (Auto) Eos # (Auto) Seg Neutrophils % Seg Neuts % (Manual) Baso # (Auto) Lymphocytes % (Manual) Monocytes % (Manual) Eosinophils % (Manual) Basophils % (Manual) Seg Neutrophils # Seg Neutrophils # Man Lymphocytes # (Manual) Monocytes # (Manual) Eosinophils # (Manual) Nucleated RBC % Basophils # (Manual) APTT Heparin Anti-Xa Level ABG pH POC ABG pO2 ABG pO2 ABG HCO3 ABG O2 Saturation ABG Base Excess POC ABG pCO2 ABG Hemoglobin ABG Oxyhemoglobin ABG Glucose Oxyhemoglobin Sodium Potassium Chloride Carbon Dioxide BUN Creatinine Glucose POC Glucose 147 H 140 H 159 H Lactic Acid Calcium Phosphorus Magnesium AST ALT Lactate Dehydrogenase CK-MB (CK-2) C-Reactive Protein NT-Pro-B Natriuret Pep Total Protein Albumin Arterial Blood Glucose Urine WBC (Auto) 01/15/20 12:52 WBC RBC Hgb Hct MCHC RDW MCV MCH Lymph % (Auto) [place] % (Auto) [place] # Eos # Lymph # (Auto) [place] # (Auto) Eos # (Auto) Seg Neutrophils % Seg Neuts % (Manual) Baso # (Auto) Lymphocytes % (Manual) Monocytes % (Manual) Eosinophils % (Manual) Basophils % (Manual) Seg Neutrophils # Seg Neutrophils # Man Lymphocytes # (Manual) Monocytes # (Manual) Eosinophils # (Manual) Nucleated RBC % Basophils # (Manual) APTT Heparin Anti-Xa Level ABG pH POC ABG pO2 ABG pO2 ABG HCO3 ABG O2 Saturation ABG Base Excess POC ABG pCO2 ABG Hemoglobin ABG Oxyhemoglobin ABG Glucose Oxyhemoglobin Sodium Potassium Chloride Carbon Dioxide BUN Creatinine Glucose POC Glucose 164 H Lactic Acid Calcium Phosphorus Magnesium AST ALT Lactate Dehydrogenase CK-MB (CK-2) C-Reactive Protein NT-Pro-B Natriuret Pep Total Protein Albumin Arterial Blood Glucose Urine WBC (Auto) Chest x-ray: pending Allied health notes reviewed: nursing
[2020-01-15] MEDS: TAMSULOSIN 0.4 MG CAP PO SCH (21:57)
[2020-01-15] MEDS: POLYETHYLENE GLYCOL 3350 17 GM POWDER PO SCH (21:58)
[2020-01-16] MEDS: METOPROLOL TARTRATE 25 MG TAB PO SCH ×4 (01:30→21:03)
[2020-01-16] MEDS: MORPHINE 2 MG/1 ML INJ IV PRN ×3 (02:22→14:48)
[2020-01-16] MEDS: LORazepam 2 MG/ML VIAL IV PRN ×2 (08:36→16:43)
--- NOTE | 2020-01-16 08:47 | Progress Note ---
Assessment and Plan Assessment and plan: -Partial SBO, resolved -Acute LLL PE -Acute RLE DVT -Persistent fevers; secondary to sepsis and acute PE/DVT -Severe sepsis; secondary to bilateral pneumonia, persistent fevers -Acute hypoxemic respiratory failure, on vent unable to wean -Bilateral pneumonia, community acquired, -Aspiration Pneumonia -Sustained SVT, on amiodarone -Acute on chronic systolic congestive heart failure -History of cerebrovascular accident. -Tobacco use disorder -Alcohol abuse with DT -Acute chronic obstructive pulmonary disease exacerbation. -Hypertension and hypertensive urgency at presentation. -History of arthritis. -Paroxysmal atrial fibrillation -Leukocytosis with possible sepsis. -Lactic acidosis. -Bleeding from ET tube -Oropharyngeal dysphagia -S/P Knee surgery -History of peptic Ulcer Surgery -DVT prophylaxis COVID-19 test; 11/24/2019; negative 11/26/2019; negative Plan Continue ventilatory support - Now s/p trach and PEG Aspiration precautions Continue to adjust amiodarone and metoprolol for suppression of paroxysmal atrial fibrillation. Continue anticoagulation s/p vancomycin and zosyn BC 03/28 - coag negative staph ?contaminant. Sputum cultures pending. Low-dose Lasix as needed DVT/GI prophy Heparin/Protonix Plan of care reviewed with the patient's nurse GS evaluated partial SBO Closely monitor the patient and adjust management as needed The high probability of a clinically significant, sudden or life threatening deterioration of the [Respiratory, cardiovascular & neurological] system(s) required my full and direct attention, intervention and personal management. The aggregate critical care time was [32] minutes without overlap. Time includes spent on [x] Data Review and interpretation [x] Patient assessment and monitoring of vital signs [x] Documentation [x] Medication orders and management 01/05; Pt stable. NGT output 650cc over 24 hours, bilious. No f/c, WBC within normal limits. cont NG suction and cont to hold TF 01/06: Abs series - mild improvement in small bowel distension in mid abdomen, normal gas/stool pattern in colon. NGT in duodenum. Continue to hold tube feeding, maintain NG tube with low intermittent suction. Patient's was updated by phone. Continue to provide supportive care and monitor clinically. 01/07: +BMs today and NGT/PEG output appears more gastric today. Plan to clamp NGT, if tolerates start TF from tomorrow. cont supportive care. 01/08; Gastric output decreased over last 24 hours. NGT has been clamped x 24 hours. plan to dc NGT and to start TTF via PEG - vital HF @10cc/hr 01/09: clinically stable, tolerating TF. monitor BMP, wean off from vent as tolerated clinically stable, on TF. wean off vent as tolerated 01/11: wean off from vent, cont to monitor, on TF 01/12: wean off from vent, cont to monitor, on TF. need placement - unfunded 01/13; remains on ventilatory support, unable to wean, DC planning possible LTAC, unfunded 01/14; patient of ventilatory support, T-piece tracheostomy on oxygen, LTAC placement per case management History Interval history: I have seen and examined the patient at the bedside Patient's chart and medications reviewed Patient tracheostomy on T-piece and oxygen Chronically ill looking cachectic In mild distress Vital signs reviewed Hospitalist Physical - Constitutional Vitals: Temp Pulse Resp BP Pulse Ox 98.4 F 108 H 30 H 123/90 97 01/16/20 08:00 01/16/20 08:15 01/16/20 08:15 01/16/20 08:15 01/16/20 08:15 General appearance: Present: well-nourished, obese, other (Tracheostomy on T- piece) - EENT Eyes: Present: PERRL, EOM intact - Neck Neck: Present: supple, normal ROM - Respiratory Respiratory effort: normal Respiratory: bilateral: diminished, rhonchi, negative: rales, wheezing - Cardiovascular Rhythm: regular Heart Sounds: Present: S1 & S2 - Extremities Extremities: no ischemia, No edema - Abdominal General gastrointestinal: soft, non-tender, non-distended, normal bowel sounds - Integumentary Integumentary: Present: clear, warm - Psychiatric Psychiatric: cooperative, other (Very anxious) - Neurologic Neurologic: moves all extremities, other (Tracheostomy T-piece) HEART Score - HEART Score Troponin: Troponin T < 0.010 ng/mL (0.00-0.029) 11/24/19 02:53 Results - Labs CBC & Chem 7: 01/14/20 16:14 01/14/20 16:14 Labs: Laboratory Last Values WBC 8.3 K/mm3 (4.5-11.0) 01/14/20 16:14 RBC 4.12 M/mm3 (3.65-5.03) 01/14/20 16:14 Hgb 10.6 gm/dl (11.8-15.2) L 01/14/20 16:14 Hct 34.2 % (35.5-45.6) L 01/14/20 16:14 MCV 83 fl (84-94) L 01/14/20 16:14 MCH 26 pg (28-32) L 01/14/20 16:14 MCHC 31 % (32-34) L 01/14/20 16:14 RDW 18.3 % (13.2-15.2) H 01/14/20 16:14 Plt Count 311 K/mm3 (140-440) 01/14/20 16:14 Lymph % (Auto) 17.5 % (13.4-35.0) 01/14/20 16:14 Toole % (Auto) 7.4 % (0.0-7.3) H 01/14/20 16:14 Eos % (Auto) 2.8 % (0.0-4.3) 01/14/20 16:14 Baso % (Auto) 0.4 % (0.0-1.8) 01/14/20 16:14 Lymph # (Auto) 1.5 K/mm3 (1.2-5.4) 01/14/20 16:14 Toole # (Auto) 0.6 K/mm3 (0.0-0.8) 01/14/20 16:14 Eos # (Auto) 0.2 K/mm3 (0.0-0.4) 01/14/20 16:14 Baso # (Auto) 0.0 K/mm3 (0.0-0.1) 01/14/20 16:14 Add Manual Diff Complete 12/19/19 11:32 Total Counted 100 12/19/19 11:32 Seg Neutrophils % 71.9 % (40.0-70.0) H 01/14/20 16:14 Seg Neuts % (Manual) 82.0 % (40.0-70.0) H 12/19/19 11:32 Band Neutrophils % 0 % 12/19/19 11:32 Lymphocytes % (Manual) 10.0 % (13.4-35.0) L 12/19/19 11:32 Reactive Lymphs % (Man) 0 % 12/19/19 11:32 Monocytes % (Manual) 6.0 % (0.0-7.3) 12/19/19 11:32 Eosinophils % (Manual) 2.0 % (0.0-4.3) 12/19/19 11:32 Basophils % (Manual) 0 % (0.0-1.8) 12/19/19 11:32 Metamyelocytes % 0 % 12/19/19 11:32 Myelocytes % 0 % 12/19/19 11:32 Promyelocytes % 0 % 12/19/19 11:32 Blast Cells % 0 % 12/19/19 11:32 Nucleated RBC % 1.0 % (0.0-0.9) H 12/19/19 11:32 Seg Neutrophils # 6.0 K/mm3 (1.8-7.7) 01/14/20 16:14 Seg Neutrophils # Man 12.0 K/mm3 (1.8-7.7) H 12/19/19 11:32 Band Neutrophils # 0.0 K/mm3 12/19/19 11:32 Lymphocytes # (Manual) 1.5 K/mm3 (1.2-5.4) 12/19/19 11:32 Abs React Lymphs (Man) 0.0 K/mm3 12/19/19 11:32 Monocytes # (Manual) 0.9 K/mm3 (0.0-0.8) H 12/19/19 11:32 Eosinophils # (Manual) 0.3 K/mm3 (0.0-0.4) 12/19/19 11:32 Basophils # (Manual) 0.0 K/mm3 (0.0-0.1) 12/19/19 11:32 Metamyelocytes # 0.0 K/mm3 12/19/19 11:32 Myelocytes # 0.0 K/mm3 12/19/19 11:32 Promyelocytes # 0.0 K/mm3 12/19/19 11:32 Blast Cells # 0.0 K/mm3 12/19/19 11:32 WBC Morphology Not Reportable 12/19/19 11:32 Hypersegmented Neuts Not Reportable 12/19/19 11:32 Hyposegmented Neuts Not Reportable 12/19/19 11:32 Hypogranular Neuts Not Reportable 12/19/19 11:32 Smudge Cells Not Reportable 12/19/19 11:32 Toxic Granulation Not Reportable 12/19/19 11:32 Toxic Vacuolation Not Reportable 12/19/19 11:32 Dohle Bodies Not Reportable 12/19/19 11:32 Pelger-Huet Anomaly Not Reportable 12/19/19 11:32 Hector Rods Not Reportable 12/19/19 11:32 Platelet Estimate Consistent w auto 12/19/19 11:32 Clumped Platelets Not Reportable 12/19/19 11:32 Plt Clumps, EDTA Not Reportable 12/19/19 11:32 Large Platelets Not Reportable 12/19/19 11:32 Giant Platelets Not Reportable 12/19/19 11:32 Platelet Satelliting Not Reportable 12/19/19 11:32 Plt Morphology Comment Not Reportable 12/19/19 11:32 RBC Morphology Not Reportable 12/19/19 11:32 Dimorphic RBCs Not Reportable 12/19/19 11:32 Polychromasia Not Reportable 12/19/19 11:32 Hypochromasia Few 12/19/19 11:32 Poikilocytosis Not Reportable 12/19/19 11:32 Anisocytosis 1+ 12/19/19 11:32 Microcytosis Few 12/19/19 11:32 Macrocytosis Few 12/19/19 11:32 Spherocytes Not Reportable 12/19/19 11:32 Pappenheimer Bodies Not Reportable 12/19/19 11:32 Sickle Cells Not Reportable 12/19/19 11:32 Target Cells Not Reportable 12/19/19 11:32 Tear Drop Cells Not Reportable 12/19/19 11:32 Ovalocytes Not Reportable 12/19/19 11:32 Helmet Cells Not Reportable 12/19/19 11:32 Gott[place] Bodies Not Reportable 12/19/19 11:32 Keo Rings Not Reportable 12/19/19 11:32 [place] Cells Not Reportable 12/19/19 11:32 Bite Cells Not Reportable 12/19/19 11:32 Crenated Cell Not Reportable 12/19/19 11:32 Elliptocytes Not Reportable 12/19/19 11:32 Acanthocytes (Spur) Not Reportable 12/19/19 11:32 Rouleaux Not Reportable 12/19/19 11:32 Hemoglobin C Crystals Not Reportable 12/19/19 11:32 Schistocytes Not Reportable 12/19/19 11:32 Malaria parasites Not Reportable 12/19/19 11:32 Clifford Bodies Not Reportable 12/19/19 11:32 Hem Pathologist Commnt No 12/19/19 11:32 PT 13.8 Sec. (12.2-14.9) 12/21/19 10:13 INR 1.05 (0.87-1.13) 12/21/19 10:13 APTT 23.9 Sec. (24.2-36.6) L 12/21/19 10:13 Heparin Anti-Xa Level 0.16 U.I./ml (0.3-0.7) L 01/04/20 04:26 ABG pH 7.449 pH Units (7.350-7.450) 01/13/20 20:40 POC ABG pCO2 45.6 mmHg (32.0-48.0) 01/12/20 13:58 ABG pCO2 46.9 mm Hg 01/13/20 20:40 POC ABG pO2 76.6 mmHg (83-108) L 01/12/20 13:58 ABG pO2 65.3 mm Hg (80.0-90.0) L 01/13/20 20:40 POC ABG HCO3 31.2 01/12/20 13:58 ABG HCO3 31.8 mmol/L (20.0-26.0) H 01/13/20 20:40 ABG O2 Saturation 93.5 % (95.0-99.0) L 01/13/20 20:40 ABG O2 Content 17.0 (0.0-44) 01/13/20 20:40 POC ABG Base Excess 6.5 01/12/20 13:58 ABG Base Excess 6.7 mmol/L (-2.0-3.0) H 01/13/20 20:40 ABG Hemoglobin 13.3 gm/dl (14.0-18.0) L 01/13/20 20:40 ABG Oxyhemoglobin 84 (94-98) L 12/22/19 03:22 ABG Carboxyhemoglobin 2.2 % (0.0-5.0) 01/13/20 20:40 ABG Methemoglobin 0.6 % (0.0-1.5) 01/13/20 20:40 ABG Sodium 136.8 mmol/L (136.0-145.0) 01/12/20 13:58 ABG Potassium 3.7 mmol/L (3.40-4.50) 01/12/20 13:58 ABG Chloride 103.0 mmol/L (98-107) 01/12/20 13:58 ABG Glucose 99 mg/dL (65-95) H 01/12/20 13:58 Oxyhemoglobin 90.9 % (95.0-99.0) L 01/13/20 20:40 Carboxyhemoglobin 0.7 (0.5-1.5) 12/22/19 03:22 FiO2 35 % 01/13/20 20:40 Sodium 143 mmol/L (137-145) 01/14/20 16:14 Potassium 3.6 mmol/L (3.6-5.0) 01/14/20 16:14 Chloride 103.0 mmol/L (98-107) 01/14/20 16:14 Carbon Dioxide 31 mmol/L (22-30) H 01/14/20 16:14 Anion Gap 13 mmol/L 01/14/20 16:14 BUN 10 mg/dL (9-20) 01/14/20 16:14 Creatinine 0.6 mg/dL (0.8-1.3) L 01/14/20 16:14 Estimated GFR > 60 ml/min 01/14/20 16:14 BUN/Creatinine Ratio 17 % 01/14/20 16:14 Glucose 131 mg/dL (75-100) H 01/14/20 16:14 POC Glucose 163 mg/dL (70-105) H 01/16/20 05:46 Lactic Acid 2.50 mmol/L (0.7-2.0) H* 11/24/19 10:37 Magnesium 2.60 mg/dL (1.7-2.3) H 12/07/19 12:41 Calcium 9.4 mg/dL (8.4-10.2) 01/14/20 16:14 Ferritin 84.4 ng/mL (30.0-300.0) 11/24/19 04:53 Direct Bilirubin < 0.2 mg/dL (0-0.2) 12/08/19 03:55 Indirect Bilirubin 0.2 mg/dL 12/08/19 03:55 Phosphorus 3.40 mg/dL (2.5-4.5) 01/12/20 12:01 Total Bilirubin 0.50 mg/dL (0.1-1.2) 01/12/20 00:23 Total Creatine Kinase 141 units/L (55-170) 11/24/19 02:53 CK-MB (CK-2) 4.3 ng/mL (0.0-4.0) H 11/24/19 02:53 AST 16 units/L (5-40) 01/12/20 00:23 ALT 22 units/L (7-56) 01/12/20 00:23 CK-MB (CK-2) Rel Index 3.0 (0-4) 11/24/19 02:53 Alkaline Phosphatase 59 units/L (35-129) 01/12/20 00:23 Troponin T < 0.010 ng/mL (0.00-0.029) 11/24/19 02:53 C-Reactive Protein 8.50 mg/dL (0.00-1.30) H 12/01/19 12:16 Lactate Dehydrogenase 228 units/L (91-180) H 12/19/19 04:45 NT-Pro-B Natriuret Pep 3866 pg/mL (0-900) H 01/01/20 10:40 Total Protein 6.3 g/dL (6.3-8.2) 01/12/20 00:23 Albumin 2.6 g/dL (3.9-5) L 01/12/20 00:23 Albumin/Globulin Ratio 0.7 % 01/12/20 00:23 Procalcitonin 0.76 ng/mL (<0.15) 01/01/20 10:40 Arterial Blood Glucose 99 mg/dL (65-95) H 01/12/20 13:58 Arterial Blood Ionized Calcium 4.8 mg/dL (4.6-5.3) 01/12/20 13:58 Urine Color Cecy (Yellow) 12/31/19 18:04 Urine Turbidity Clear (Clear) 12/31/19 18:04 Urine pH 5.0 (5.0-7.0) 12/31/19 18:04 Ur Specific [place] 1.023 (1.003-1.030) 12/31/19 18:04 Urine Protein <15 mg/dl mg/dL (Negative) 12/31/19 18:04 Urine Glucose (UA) Neg mg/dL (Negative) 12/31/19 18:04 Urine Ketones Neg mg/dL (Negative) 12/31/19 18:04 Urine Blood Neg (Negative) 12/31/19 18:04 Urine Bacteria (Auto) 1+ /HPF (Negative) 12/03/19 06:03 Urine Nitrite Neg (Negative) 12/31/19 18:04 Urine Bilirubin Neg (Negative) 12/31/19 18:04 Urine Urobilinogen 4.0 mg/dL (<2.0) 12/31/19 18:04 Ur Leukocyte Esterase Neg (Negative) 12/31/19 18:04 Urine WBC (Auto) 2.0 /HPF (0.0-6.0) 12/31/19 18:04 Urine RBC (Auto) 3.0 /HPF (0.0-6.0) 12/31/19 18:04 U Epithel Cells (Auto) 2.0 /HPF (0-13.0) 12/31/19 18:04 Urine Mucus 1+ /HPF 12/31/19 18:04 Vancomycin Trough 14.2 ug/mL (5.0-20.0) 12/13/19 15:01 Coronavirus (PCR) Negative (Negative) 12/29/19 10:07 - Diagnostic Impressions Diagnostic Impressions: Echocardiogram 11/29/19 07:37 Transthoracic Echocardiogram Indication: CHF BP: 116/72 HR: 33 Conclusions *The study is technically limited due to poor acoustic windows. *Global left ventricular systolic function is normal. *The estimated ejection fraction is 50-55%. *Mild concentric left ventricular hypertrophy is observed. *There is trace of mitral regurgitation. *There is mild tricuspid regurgitation. Findings Procedure Info: The study quality is poor. The study is technically limited due to poor acoustic windows. The study is technically limited due to patient body habitus. Left Ventricle: The left ventricular chamber size is normal. Mild concentric left ventricular hypertrophy is observed. Global left ventricular systolic function is normal. The estimated ejection fraction is 50-55%. Left Atrium: The left atrial chamber size is normal. Right Ventricle: The right ventricular cavity size is normal. Right Atrium: The right atrial cavity size is normal. Aortic Valve: The aortic valve leaflets are moderately thickened. There is trace of aortic regurgitation. There is no evidence of aortic stenosis. Mitral Valve: The mitral valve leaflets are mildly thickened. There is trace of mitral regurgitation. There is no evidence of mitral stenosis. Tricuspid Valve: There is mild tricuspid regurgitation. No pulmonary hypertension is noted. Pulmonic Valve: There is trace pulmonic regurgitation. Pericardium: There is no pericardial effusion. Aorta: There is no dilatation of the aortic root. Venous: The inferior vena cava appears normal in size. Contrast: Definity was used to optimize study. Intravenous contrast was used to enhance endocardial border definition. Measurements Chambers 2D Name Value Normal Range Ao root diameter (2D) 3.4 cm (2 - 3.7) Aortic Valve Name Value Normal Range AV Vmax 0.98 m/sec - AV VTI 16.76 cm - AV peak gradient 3.83 mmHg - AV mean gradient 2.57 mmHg - LVOT diameter 3.11 cm - LVOT Vmax 0.68 m/sec - LVOT VTI 11.52 cm - LVOT peak gradient 1.84 mmHg - LVOT mean gradient 1.27 mmHg - SV LVOT 87.31 ml - MALOU (continuity Vmax) 5.24 cm2 - MALOU (continuity VTI) 5.21 cm2 - Tricuspid Valve Name Value Normal Range IVC diameter 2.24 cm (1.2 - 2.3) Hoffman/IV: Voiding Method Condom Catheter IV Catheter Type [Right Hand] INT / Saline Lock IV Catheter Type [Right Upper INT / Saline Lock arm] IV Catheter Type [Left Upper Mid-line arm] IV Catheter Type [Left Forearm INT / Saline Lock ] IV Catheter Type [Left Hand] INT / Saline Lock IV Catheter Type [Left Wrist] INT / Saline Lock IV Catheter Type [Right Peripheral IV Antecubital] Active Medications - Current Medications Current Medications: Generic Name Dose Route Start Last Admin Trade Name Freq PRN Reason Stop Dose Admin Acetaminophen 650 mg 12/31/19 11:43 01/14/20 08:27 Tylenol FEEDTUBE 650 mg Q6H PRN Administration Pain, Mild (1-3) Amiodarone HCl 200 mg 12/04/19 14:00 01/15/20 21:56 Cordarone PO 200 mg BID CAR Administration Lipase/Protease/Amylase 1 each 01/09/20 12:01 Nadir Betancourt 10,500 Unit FEEDTUBE PRN PRN For Clogged Feeding Tube Apixaban 5 mg 01/11/20 22:00 01/15/20 21:56 Eliquis PO 5 mg Q12HR CAR Administration Protocol Bisacodyl 10 mg 01/06/20 13:00 01/15/20 09:50 Dulcolax [place] 10 mg DAILY CAR Administration Docusate Sodium 100 mg 12/02/19 22:00 01/15/20 21:54 Colace FEEDTUBE Not Given BID CAR Famotidine 20 mg 01/12/20 10:00 01/15/20 21:59 Pepcid PO 20 mg BID CAR Administration Glycopyrrolate 2 mg 01/12/20 22:00 01/15/20 21:58 Glycopyrrolate PO 2 mg BID CAR Administration Haloperidol Lactate 5 mg 12/25/19 10:00 01/08/20 17:00 Haldol IV 5 mg Q6H PRN Administration Unrespon. to mult. doses BZD's Lorazepam 2 mg 12/25/19 10:00 01/16/20 08:36 Ativan IV 2 mg Q6H PRN Administration AGITATION Magnesium Hydroxide 30 ml 01/14/20 13:35 Milk Of Magnesia PO QDAY PRN Constip unreliev by MOM/or NPO Metoprolol Tartrate 5 mg 01/11/20 08:00 01/14/20 02:32 Metoprolol IV 5 mg Q6H PRN Administration SEE INSTRUCTIONS Metoprolol Tartrate 25 mg 01/11/20 13:00 01/16/20 08:02 Metoprolol PO 25 mg Q6H CAR Administration Morphine Sulfate 2 mg 01/06/20 15:41 01/16/20 08:01 Morphine IV 2 mg Q4H PRN Administration Pain, Moderate (4-6) Ondansetron HCl 4 mg 01/05/20 14:37 01/05/20 16:18 Zofran IV 4 mg Q8H PRN Administration Nausea And Vomiting Polyethylene Glycol 17 gm 12/04/19 22:00 01/15/20 21:58 Miralax 3350 PO Not Given QHS CAR Quetiapine Fumarate 300 mg 01/13/20 22:00 01/15/20 21:59 Seroquel PO 300 mg BID CAR Administration Scopolamine 1 each 01/07/20 20:00 01/07/20 21:08 Transderm-Scop TD 1 each Q72HR CAR Administration Simple Syrup 15 ml 01/09/20 12:01 Simple Syrup FEEDTUBE PRN PRN Hypoglycemia Simple Syrup 30 ml 01/09/20 12:01 Simple Syrup FEEDTUBE PRN PRN Hypoglycemia Sodium Bicarbonate 325 mg 01/09/20 12:01 Sodium Bicarbonate FEEDTUBE PRN PRN For Clogged Feeding Tube Sodium Chloride 10 ml 11/24/19 10:00 01/15/20 22:00 Sodium Chloride Flush Syringe 10 Ml IV 10 ml BID CAR Administration Tamsulosin HCl 0.8 mg 12/20/19 22:00 01/15/20 21:57 Flomax PO 0.8 mg QHS CAR Administration Nutrition/Malnutrition Assess - Dietary Evaluation Nutrition/Malnutrition Findings: Nutrition Notes Start: 11/24/19 12:22 Freq: Status: Active Protocol: Document 01/15/20 12:20 AL (Rec: 01/15/20 12:51 AL [email or web address]) Co-Sign 01/15/20 12:20 Nutrition Notes Initial or Follow up Reassessment Current Diagnosis Coronary Artery Disease,Heart Failure,Respiratory Failure, Stroke,Hyperlipidemia Other Pertinent Diagnosis Partial SBO, pneu Current Diet Vital HP at 70 ml/hr (goal rate) Labs/Tests Reviewed Pertinent Medications Reviewed Height 6 ft 2 in Weight 120 kg Hecker Body Weight (kg) 86.36 BMI 34.0 Weight Status Obese Subjective/Other Information TF tolerated at 70 ml/hr (goal rate). Pt extubated. Percent of energy/protein needs met: 100%/79% Burn Absent Trauma Absent GI Symptoms None Current % PO Negligible Minimum of two criteria No Fluid Accumulation Mild (non-severe) #1 Nutrition Diagnosis Inadequate oral intake Diagnosis Progress(for reassessment Continues documentation) Is patient on ventilator? No Is Patient Ambulatory and/or Out of Bed No REE-([facility]-confined to bed) 2482.308 Kcal/Kg value to use for calculation 14 Approximate Energy Requirements Using 1680 kcal/Kg Calculation Used for Recommendations Kcal/kg Additional Notes Pro needs 82-103 g/day (.8-1. 0g/kg AdBW) Fluid needs 1ml/kcal Nutrition Intervention Change Diet Order: Change TF to Promote 1.0 at 70 ml/hr Nutrition Support: Promote 1.0 at 70ml/hr (goal rate) Flush 50 ml q4h or per MD Kcal 1,680 Protein (gm) 105 Fluid (mL) 1,409 Goal #1 Change TF Goal #2 TF (at goal rate) to meet 75% energy and Pro needs Anticipated Discharge Needs: unable to determine Follow-Up By: 01/19/20 Additional Comments TF tolerance.
[2020-01-16] MEDS: FUROSEMIDE 40 MG/4 ML INJ IV SCH (09:27)
[2020-01-16] MEDS: APIXABAN 5 MG TAB PO SCH ×2 (09:28→21:04)
[2020-01-16] MEDS: AMIODARONE 200 MG TAB PO SCH ×2 (09:28→21:05)
[2020-01-16] MEDS: QUEtiapine 100 MG TAB PO SCH ×2 (09:29→21:05)
[2020-01-16] MEDS: GLYCOPYRROLATE 2 MG TAB PO SCH ×2 (09:29→21:05)
[2020-01-16] MEDS: FAMOTIDINE 20 MG TAB PO SCH ×2 (09:29→21:05)
[2020-01-16] MEDS: DOCUSATE SODIUM 100 MG/10 ML ORAL LIQD FEEDTUBE SCH ×2 (09:30→21:04)
--- NOTE | 2020-01-16 12:11 | Progress Note ---
Assessment and Plan Acute hypoxemic respiratory failure Bilateral pneumonia, community acquired. Acute LLL branch P.E. Acute DVT Person under investigation for COVID-19 infection. Acute congestive heart failure exacerbation. History of cerebrovascular accident. Acute chronic obstructive pulmonary disease exacerbation. Hypertension and hypertensive urgency at presentation. History of arthritis. Leukocytosis. Lactic acidosis. Oropharyngeal dysphagia - placed back on full MVS - increased Robinul dose - still await trach tube downsize - continue full anticoagulation with Apixaban - continue scopolamine patch - continue care as below otherwise; - continue daily SAT's and SBT assessment as tolerated - continue seroquel for anxiolysis / delirium - COVID isolation per facility protocol - prn diuresis while following electrolytes / I's & O's - continue to wean oxygen for O2 sat's > 92% - continue bronchodilators with routine trach care and pulmonary hygiene per RT - VAP bundle addressed (Aspiration precautions, HOB >40) - continue to wean per pulmonary driven protocols - sedation target is RASS 0 to -1 - continue prn analgesia per CPOT score - follow clinically re: fever curves / trend WBC - Avoid delirium (no benzodiazepines if they can be avoided) - Maintain sleep-wake cycle - enteral nutrition at goal rate as tolerated - continue accucheck's with glycemic control per SSI for target blood glucose goal of 140-180 mg/dL while critically ill; Avoid hypoglycemia - for VTE he is on IV Heparin - continue stress ulcer prophylaxis with Famotidine - continue mobility protocols for pressure ulcer prophylaxis - continue fall precautions - continue wound care management per RN / WCT - Supportive transfusions to keep HgB>7g/dL - CXR's and ABG's prn - Continue to monitor neurologic function - Continue chronic home medications - Continue all supportive care ........ re-evaluate in am & prn CONDITION: CRITICAL PROGNOSIS: GUARDED CODE STATUS: FULL CODE The high probability of a clinically significant, sudden or life threatening deterioration of the [Respiratory, cardiovascular & neurological] system(s) required my full and direct attention, intervention and personal management. The aggregate critical care time was [32] minutes without overlap. Time includes spent on [x] Data Review and interpretation [x] Patient assessment and monitoring of vital signs [x] Documentation [x] Medication orders and management Subjective Date of service: 01/16/20 Principal diagnosis: Ac hypoxemic resp failure; Pneumonia; PUI COVID-19; CHF; COPD; HTN Interval history: Patient is seen today for: Acute hypoxemic respiratory failure; [place]. Pneumonia (CAP); PUI COVID-19 infection; AE-CHF; AE-COPD; H/O CVA; HTN Seen and examined at bedside; 24 hour events reviewed; nursing and respiratory care staff consulted; no adverse overnight events reported to me; resting peacefully in bed; back on MVS overnight but on t-piece trial now; breathing labored at time of my evaluation; no emesis or overt aspiration Objective Vital Signs - 12hr 01/16/20 01/16/20 01/16/20 00:15 00:31 00:45 Temperature Pulse Rate 99 H 94 H 93 H Pulse Rate [ From Monitor] Respiratory 20 21 22 Rate Respiratory Rate [Abdomen] Blood Pressure 102/68 102/68 102/68 O2 Sat by Pulse 95 97 98 Oximetry O2 Sat by Pulse Oximetry [ Downsized] 01/16/20 01/16/20 01/16/20 01:00 01:15 01:30 Temperature Pulse Rate 91 H 90 97 H Pulse Rate [ From Monitor] Respiratory 22 21 23 Rate Respiratory Rate [Abdomen] Blood Pressure 105/67 105/67 109/83 O2 Sat by Pulse 98 99 99 Oximetry O2 Sat by Pulse Oximetry [ Downsized] 01/16/20 01/16/20 01/16/20 01:45 02:22 02:53 Temperature Pulse Rate 97 H 92 H Pulse Rate [ From Monitor] Respiratory 23 21 21 Rate Respiratory Rate [Abdomen] Blood Pressure 109/83 O2 Sat by Pulse 99 99 Oximetry O2 Sat by Pulse Oximetry [ Downsized] 01/16/20 01/16/20 01/16/20 03:01 03:15 03:27 Temperature 98.2 F Pulse Rate 96 H 95 H Pulse Rate [ From Monitor] Respiratory 18 20 Rate Respiratory Rate [Abdomen] Blood Pressure O2 Sat by Pulse 99 100 Oximetry O2 Sat by Pulse Oximetry [ Downsized] 01/16/20 01/16/20 01/16/20 03:31 03:45 04:00 Temperature Pulse Rate 94 H 95 H 95 H Pulse Rate [ 101 H From Monitor] Respiratory 19 19 19 Rate Respiratory Rate [Abdomen] Blood Pressure O2 Sat by Pulse 98 100 94 Oximetry O2 Sat by Pulse Oximetry [ Downsized] 01/16/20 01/16/20 01/16/20 04:01 04:15 04:31 Temperature Pulse Rate 96 H 100 H 94 H Pulse Rate [ From Monitor] Respiratory 13 20 17 Rate Respiratory Rate [Abdomen] Blood Pressure O2 Sat by Pulse 94 99 99 Oximetry O2 Sat by Pulse Oximetry [ Downsized] 01/16/20 01/16/20 01/16/20 04:35 04:45 05:01 Temperature Pulse Rate 96 H 95 H 92 H Pulse Rate [ From Monitor] Respiratory 22 20 Rate Respiratory Rate [Abdomen] Blood Pressure O2 Sat by Pulse 97 95 94 Oximetry O2 Sat by Pulse Oximetry [ Downsized] 01/16/20 01/16/20 01/16/20 05:15 05:31 05:45 Temperature Pulse Rate 92 H 94 H 94 H Pulse Rate [ From Monitor] Respiratory 16 16 15 Rate Respiratory Rate [Abdomen] Blood Pressure O2 Sat by Pulse 92 93 88 Oximetry O2 Sat by Pulse Oximetry [ Downsized] 01/16/20 01/16/20 01/16/20 06:01 06:15 06:31 Temperature Pulse Rate 96 H 99 H 101 H Pulse Rate [ From Monitor] Respiratory 20 22 18 Rate Respiratory Rate [Abdomen] Blood Pressure O2 Sat by Pulse 96 92 93 Oximetry O2 Sat by Pulse Oximetry [ Downsized] 01/16/20 01/16/20 01/16/20 06:45 07:01 07:15 Temperature Pulse Rate 97 H 100 H 99 H Pulse Rate [ From Monitor] Respiratory 19 19 26 H Rate Respiratory Rate [Abdomen] Blood Pressure O2 Sat by Pulse 93 94 95 Oximetry O2 Sat by Pulse Oximetry [ Downsized] 01/16/20 01/16/20 01/16/20 07:31 07:40 07:45 Temperature Pulse Rate 101 H 96 H 96 H Pulse Rate [ From Monitor] Respiratory 23 19 Rate Respiratory Rate [Abdomen] Blood Pressure 120/85 120/85 120/85 O2 Sat by Pulse 96 94 95 Oximetry O2 Sat by Pulse Oximetry [ Downsized] 01/16/20 01/16/20 01/16/20 07:47 07:50 08:00 Temperature 98.4 F Pulse Rate 104 H Pulse Rate [ 99 H From Monitor] Respiratory 23 Rate Respiratory 25 H Rate [Abdomen] Blood Pressure 123/90 O2 Sat by Pulse 99 97 Oximetry O2 Sat by Pulse 97 Oximetry [ Downsized] 01/16/20 01/16/20 01/16/20 08:01 08:02 08:15 Temperature Pulse Rate 105 H 108 H Pulse Rate [ From Monitor] Respiratory 25 H 30 H Rate Respiratory Rate [Abdomen] Blood Pressure 123/90 123/90 O2 Sat by Pulse 97 Oximetry O2 Sat by Pulse Oximetry [ Downsized] 01/16/20 01/16/20 01/16/20 08:31 08:45 09:01 Temperature Pulse Rate 113 H 117 H 113 H Pulse Rate [ From Monitor] Respiratory 40 H 23 22 Rate Respiratory Rate [Abdomen] Blood Pressure 123/90 123/90 133/106 O2 Sat by Pulse 95 94 94 Oximetry O2 Sat by Pulse Oximetry [ Downsized] 01/16/20 01/16/20 01/16/20 09:15 09:31 09:45 Temperature Pulse Rate 112 H 111 H 112 H Pulse Rate [ From Monitor] Respiratory 17 25 H 24 Rate Respiratory Rate [Abdomen] Blood Pressure 133/106 133/106 140/87 O2 Sat by Pulse 94 97 97 Oximetry O2 Sat by Pulse Oximetry [ Downsized] 01/16/20 01/16/20 01/16/20 10:00 10:15 10:31 Temperature Pulse Rate 102 H 98 H 110 H Pulse Rate [ From Monitor] Respiratory 19 18 18 Rate Respiratory Rate [Abdomen] Blood Pressure 123/80 140/87 140/87 O2 Sat by Pulse 96 97 96 Oximetry O2 Sat by Pulse Oximetry [ Downsized] 01/16/20 01/16/20 01/16/20 10:45 11:00 11:40 Temperature Pulse Rate 109 H 106 H 96 H Pulse Rate [ From Monitor] Respiratory 20 19 Rate Respiratory Rate [Abdomen] Blood Pressure 140/87 122/86 122/86 O2 Sat by Pulse 96 97 94 Oximetry O2 Sat by Pulse Oximetry [ Downsized] Constitutional: no acute distress, other (elelderly and obese male, normocephalic with mildly increased respiratory effort at rest ) Eyes: non-icteric ENT: oropharynx moist, other (trach to t-piece) Neck: supple, no JVD Effort: very labored Ascultation: Bilateral: diminished breath sounds, rhonchi, other (mild secretions) Percussion: Bilateral: not dull Cardiovascular: irregular rhythm, other (S1,S2) Gastrointestinal: normoactive bowel sounds, soft, non-tender, other (protuberant; PEG in place) Integumentary: normal Extremities: no cyanosis, pulses normal, no ischemia or petechiae, edema (bilateral upper ) Neurologic: non-focal exam (moves extremities), pupils equal and round, CN II- XII normal, motor strength normal and (weak) Psychiatric: mood appropriate, affect normal CBC and BMP: 01/14/20 16:14 01/14/20 16:14 ABG, PT/INR, D-dimer: ABG ABG pH 7.449 pH Units (7.350-7.450) 01/13/20 20:40 POC ABG pCO2 45.6 mmHg (32.0-48.0) 01/12/20 13:58 ABG pCO2 46.9 mm Hg 01/13/20 20:40 POC ABG pO2 76.6 mmHg (83-108) L 01/12/20 13:58 ABG pO2 65.3 mm Hg (80.0-90.0) L 01/13/20 20:40 POC ABG HCO3 31.2 01/12/20 13:58 ABG O2 Saturation 93.5 % (95.0-99.0) L 01/13/20 20:40 PT/INR, D-dimer PT 13.8 Sec. (12.2-14.9) 12/21/19 10:13 INR 1.05 (0.87-1.13) 12/21/19 10:13 Abnormal lab findings: Abnormal Labs 11/24/19 11/24/19 11/24/19 02:53 02:53 03:45 WBC 14.3 H RBC Hgb Hct MCHC RDW 17.2 H MCV MCH Lymph % (Auto) [place] % (Auto) [place] # Eos # Lymph # (Auto) [place] # (Auto) Eos # (Auto) Seg Neutrophils % Seg Neuts % (Manual) Baso # (Auto) Lymphocytes % (Manual) Monocytes % (Manual) Eosinophils % (Manual) Basophils % (Manual) Seg Neutrophils # Seg Neutrophils # Man 8.3 H Lymphocytes # (Manual) Monocytes # (Manual) 0.9 H Eosinophils # (Manual) Nucleated RBC % Basophils # (Manual) APTT Heparin Anti-Xa Level ABG pH 7.313 L POC ABG pO2 ABG pO2 102.8 H ABG HCO3 ABG O2 Saturation ABG Base Excess -2.9 L POC ABG pCO2 ABG Hemoglobin ABG Oxyhemoglobin ABG Glucose Oxyhemoglobin 93.9 L Sodium Potassium Chloride Carbon Dioxide BUN Creatinine Glucose 195 H POC Glucose Lactic Acid Calcium Phosphorus Magnesium AST ALT Lactate Dehydrogenase CK-MB (CK-2) 4.3 H C-Reactive Protein NT-Pro-B Natriuret Pep 1181 H Total Protein Albumin Arterial Blood Glucose Urine WBC (Auto) 11/24/19 11/24/19 11/24/19 04:53 04:53 10:37 WBC RBC Hgb Hct MCHC RDW MCV MCH Lymph % (Auto) [place] % (Auto) [place] # Eos # Lymph # (Auto) [place] # (Auto) Eos # (Auto) Seg Neutrophils % Seg Neuts % (Manual) Baso # (Auto) Lymphocytes % (Manual) Monocytes % (Manual) Eosinophils % (Manual) Basophils % (Manual) Seg Neutrophils # Seg Neutrophils # Man Lymphocytes # (Manual) Monocytes # (Manual) Eosinophils # (Manual) Nucleated RBC % Basophils # (Manual) APTT Heparin Anti-Xa Level ABG pH POC ABG pO2 ABG pO2 ABG HCO3 ABG O2 Saturation ABG Base Excess POC ABG pCO2 ABG Hemoglobin ABG Oxyhemoglobin ABG Glucose Oxyhemoglobin Sodium Potassium Chloride Carbon Dioxide BUN Creatinine Glucose 162 H POC Glucose Lactic Acid 2.40 H* 2.50 H* Calcium Phosphorus Magnesium AST ALT Lactate Dehydrogenase 240 H CK-MB (CK-2) C-Reactive Protein NT-Pro-B Natriuret Pep Total Protein Albumin Arterial Blood Glucose Urine WBC (Auto) 11/24/19 11/24/19 11/24/19 12:21 14:50 19:54 WBC RBC Hgb Hct MCHC RDW MCV MCH Lymph % (Auto) [place] % (Auto) [place] # Eos # Lymph # (Auto) [place] # (Auto) Eos # (Auto) Seg Neutrophils % Seg Neuts % (Manual) Baso # (Auto) Lymphocytes % (Manual) Monocytes % (Manual) Eosinophils % (Manual) Basophils % (Manual) Seg Neutrophils # Seg Neutrophils # Man Lymphocytes # (Manual) Monocytes # (Manual) Eosinophils # (Manual) Nucleated RBC % Basophils # (Manual) APTT Heparin Anti-Xa Level ABG pH POC ABG pO2 ABG pO2 ABG HCO3 ABG O2 Saturation ABG Base Excess POC ABG pCO2 ABG Hemoglobin ABG Oxyhemoglobin ABG Glucose Oxyhemoglobin Sodium Potassium Chloride Carbon Dioxide BUN Creatinine Glucose POC Glucose 145 H 143 H 124 H Lactic Acid Calcium Phosphorus Magnesium AST ALT Lactate Dehydrogenase CK-MB (CK-2) C-Reactive Protein NT-Pro-B Natriuret Pep Total Protein Albumin Arterial Blood Glucose Urine WBC (Auto) 11/25/19 11/25/19 11/25/19 00:18 03:18 05:11 WBC 13.7 H RBC Hgb Hct MCHC RDW 17.1 H MCV MCH Lymph % (Auto) 10.8 L [place] % (Auto) 8.7 H [place] # 1.2 H Eos # Lymph # (Auto) [place] # (Auto) Eos # (Auto) Seg Neutrophils % 80.2 H Seg Neuts % (Manual) Baso # (Auto) Lymphocytes % (Manual) Monocytes % (Manual) Eosinophils % (Manual) Basophils % (Manual) Seg Neutrophils # 11.0 H Seg Neutrophils # Man Lymphocytes # (Manual) Monocytes # (Manual) Eosinophils # (Manual) Nucleated RBC % Basophils # (Manual) APTT Heparin Anti-Xa Level ABG pH 7.333 L POC ABG pO2 ABG pO2 61.2 L ABG HCO3 ABG O2 Saturation 90.2 L ABG Base Excess POC ABG pCO2 ABG Hemoglobin 13.7 L ABG Oxyhemoglobin ABG Glucose Oxyhemoglobin 88.2 L Sodium Potassium Chloride Carbon Dioxide BUN Creatinine Glucose POC Glucose 109 H Lactic Acid Calcium Phosphorus Magnesium AST ALT Lactate Dehydrogenase CK-MB (CK-2) C-Reactive Protein NT-Pro-B Natriuret Pep Total Protein Albumin Arterial Blood Glucose Urine WBC (Auto) 11/25/19 11/25/19 11/26/19 05:11 11:40 03:12 WBC RBC Hgb Hct MCHC RDW MCV MCH Lymph % (Auto) [place] % (Auto) [place] # Eos # Lymph # (Auto) [place] # (Auto) Eos # (Auto) Seg Neutrophils % Seg Neuts % (Manual) Baso # (Auto) Lymphocytes % (Manual) Monocytes % (Manual) Eosinophils % (Manual) Basophils % (Manual) Seg Neutrophils # Seg Neutrophils # Man Lymphocytes # (Manual) Monocytes # (Manual) Eosinophils # (Manual) Nucleated RBC % Basophils # (Manual) APTT Heparin Anti-Xa Level ABG pH POC ABG pO2 ABG pO2 155.1 H ABG HCO3 27.8 H ABG O2 Saturation ABG Base Excess POC ABG pCO2 ABG Hemoglobin 12.2 L ABG Oxyhemoglobin ABG Glucose Oxyhemoglobin Sodium Potassium Chloride Carbon Dioxide BUN 23 H Creatinine Glucose 110 H POC Glucose 108 H Lactic Acid Calcium Phosphorus Magnesium AST ALT Lactate Dehydrogenase CK-MB (CK-2) C-Reactive Protein NT-Pro-B Natriuret Pep Total Protein Albumin Arterial Blood Glucose Urine WBC (Auto) 11/26/19 11/26/19 11/26/19 06:17 10:43 10:43 WBC 11.4 H RBC Hgb Hct MCHC RDW 17.1 H MCV MCH Lymph % (Auto) [place] % (Auto) [place] # Eos # Lymph # (Auto) [place] # (Auto) Eos # (Auto) Seg Neutrophils % Seg Neuts % (Manual) Baso # (Auto) Lymphocytes % (Manual) Monocytes % (Manual) Eosinophils % (Manual) Basophils % (Manual) Seg Neutrophils # Seg Neutrophils # Man Lymphocytes # (Manual) Monocytes # (Manual) Eosinophils # (Manual) Nucleated RBC % Basophils # (Manual) APTT Heparin Anti-Xa Level ABG pH POC ABG pO2 ABG pO2 ABG HCO3 ABG O2 Saturation ABG Base Excess POC ABG pCO2 ABG Hemoglobin ABG Oxyhemoglobin ABG Glucose Oxyhemoglobin Sodium Potassium Chloride Carbon Dioxide BUN 29 H Creatinine Glucose POC Glucose 107 H Lactic Acid Calcium Phosphorus Magnesium AST ALT Lactate Dehydrogenase CK-MB (CK-2) C-Reactive Protein NT-Pro-B Natriuret Pep Total Protein Albumin Arterial Blood Glucose Urine WBC (Auto) 11/26/19 11/27/19 11/27/19 17:11 01:53 04:11 WBC RBC Hgb Hct MCHC RDW MCV MCH Lymph % (Auto) [place] % (Auto) [place] # Eos # Lymph # (Auto) [place] # (Auto) Eos # (Auto) Seg Neutrophils % Seg Neuts % (Manual) Baso # (Auto) Lymphocytes % (Manual) Monocytes % (Manual) Eosinophils % (Manual) Basophils % (Manual) Seg Neutrophils # Seg Neutrophils # Man Lymphocytes # (Manual) Monocytes # (Manual) Eosinophils # (Manual) Nucleated RBC % Basophils # (Manual) APTT Heparin Anti-Xa Level ABG pH POC ABG pO2 ABG pO2 ABG HCO3 29.2 H ABG O2 Saturation ABG Base Excess 3.4 H POC ABG pCO2 ABG Hemoglobin 13.3 L ABG Oxyhemoglobin ABG Glucose Oxyhemoglobin 94.5 L Sodium Potassium Chloride Carbon Dioxide BUN Creatinine Glucose POC Glucose 113 H 108 H Lactic Acid Calcium Phosphorus Magnesium AST ALT Lactate Dehydrogenase CK-MB (CK-2) C-Reactive Protein NT-Pro-B Natriuret Pep Total Protein Albumin Arterial Blood Glucose Urine WBC (Auto) 11/27/19 11/28/19 11/28/19 05:27 05:00 05:25 WBC RBC Hgb Hct MCHC RDW MCV MCH Lymph % (Auto) [place] % (Auto) [place] # Eos # Lymph # (Auto) [place] # (Auto) Eos # (Auto) Seg Neutrophils % Seg Neuts % (Manual) Baso # (Auto) Lymphocytes % (Manual) Monocytes % (Manual) Eosinophils % (Manual) Basophils % (Manual) Seg Neutrophils # Seg Neutrophils # Man Lymphocytes # (Manual) Monocytes # (Manual) Eosinophils # (Manual) Nucleated RBC % Basophils # (Manual) APTT Heparin Anti-Xa Level ABG pH POC ABG pO2 68.1 L ABG pO2 ABG HCO3 ABG O2 Saturation ABG Base Excess POC ABG pCO2 ABG Hemoglobin ABG Oxyhemoglobin 91.2 L ABG Glucose Oxyhemoglobin Sodium Potassium Chloride Carbon Dioxide BUN Creatinine Glucose POC Glucose 111 H 110 H Lactic Acid Calcium Phosphorus Magnesium AST ALT Lactate Dehydrogenase CK-MB (CK-2) C-Reactive Protein NT-Pro-B Natriuret Pep Total Protein Albumin Arterial Blood Glucose Urine WBC (Auto) 11/28/19 11/28/19 11/28/19 12:08 13:47 13:47 WBC 11.3 H RBC Hgb Hct MCHC RDW 16.1 H MCV MCH Lymph % (Auto) [place] % (Auto) 9.9 H [place] # 1.1 H Eos # Lymph # (Auto) [place] # (Auto) Eos # (Auto) Seg Neutrophils % 71.4 H Seg Neuts % (Manual) Baso # (Auto) Lymphocytes % (Manual) Monocytes % (Manual) Eosinophils % (Manual) Basophils % (Manual) Seg Neutrophils # 8.1 H Seg Neutrophils # Man Lymphocytes # (Manual) Monocytes # (Manual) Eosinophils # (Manual) Nucleated RBC % Basophils # (Manual) APTT Heparin Anti-Xa Level ABG pH POC ABG pO2 ABG pO2 ABG HCO3 ABG O2 Saturation ABG Base Excess POC ABG pCO2 ABG Hemoglobin ABG Oxyhemoglobin ABG Glucose Oxyhemoglobin Sodium Potassium Chloride Carbon Dioxide BUN 23 H Creatinine Glucose 123 H POC Glucose 112 H Lactic Acid Calcium Phosphorus Magnesium AST ALT Lactate Dehydrogenase CK-MB (CK-2) C-Reactive Protein NT-Pro-B Natriuret Pep Total Protein Albumin 3.7 L Arterial Blood Glucose Urine WBC (Auto) 11/28/19 11/29/19 11/29/19 17:26 03:55 17:04 WBC RBC Hgb Hct MCHC RDW MCV MCH Lymph % (Auto) [place] % (Auto) [place] # Eos # Lymph # (Auto) [place] # (Auto) Eos # (Auto) Seg Neutrophils % Seg Neuts % (Manual) Baso # (Auto) Lymphocytes % (Manual) Monocytes % (Manual) Eosinophils % (Manual) Basophils % (Manual) Seg Neutrophils # Seg Neutrophils # Man Lymphocytes # (Manual) Monocytes # (Manual) Eosinophils # (Manual) Nucleated RBC % Basophils # (Manual) APTT Heparin Anti-Xa Level ABG pH POC ABG pO2 ABG pO2 65.7 L ABG HCO3 28.3 H ABG O2 Saturation 93.9 L ABG Base Excess 3.6 H POC ABG pCO2 ABG Hemoglobin 13.3 L ABG Oxyhemoglobin ABG Glucose Oxyhemoglobin 91.5 L Sodium Potassium Chloride Carbon Dioxide BUN Creatinine Glucose POC Glucose 123 H 119 H Lactic Acid Calcium Phosphorus Magnesium AST ALT Lactate Dehydrogenase CK-MB (CK-2) C-Reactive Protein NT-Pro-B Natriuret Pep Total Protein Albumin Arterial Blood Glucose Urine WBC (Auto) 11/30/19 11/30/19 11/30/19 04:17 04:17 04:56 WBC 13.4 H RBC Hgb Hct MCHC RDW 15.6 H MCV MCH Lymph % (Auto) [place] % (Auto) [place] # Eos # Lymph # (Auto) [place] # (Auto) Eos # (Auto) Seg Neutrophils % Seg Neuts % (Manual) Baso # (Auto) Lymphocytes % (Manual) Monocytes % (Manual) Eosinophils % (Manual) Basophils % (Manual) Seg Neutrophils # Seg Neutrophils # Man Lymphocytes # (Manual) Monocytes # (Manual) Eosinophils # (Manual) Nucleated RBC % Basophils # (Manual) APTT Heparin Anti-Xa Level ABG pH POC ABG pO2 ABG pO2 56.3 L ABG HCO3 29.3 H ABG O2 Saturation 91.5 L ABG Base Excess 4.7 H POC ABG pCO2 ABG Hemoglobin 12.1 L ABG Oxyhemoglobin ABG Glucose Oxyhemoglobin 89.2 L Sodium 147 H Potassium Chloride Carbon Dioxide BUN 30 H Creatinine Glucose 124 H POC Glucose Lactic Acid Calcium Phosphorus Magnesium AST ALT Lactate Dehydrogenase CK-MB (CK-2) C-Reactive Protein NT-Pro-B Natriuret Pep Total Protein Albumin 3.8 L Arterial Blood Glucose Urine WBC (Auto) 11/30/19 11/30/19 11/30/19 05:51 11:54 18:17 WBC RBC Hgb Hct MCHC RDW MCV MCH Lymph % (Auto) [place] % (Auto) [place] # Eos # Lymph # (Auto) [place] # (Auto) Eos # (Auto) Seg Neutrophils % Seg Neuts % (Manual) Baso # (Auto) Lymphocytes % (Manual) Monocytes % (Manual) Eosinophils % (Manual) Basophils % (Manual) Seg Neutrophils # Seg Neutrophils # Man Lymphocytes # (Manual) Monocytes # (Manual) Eosinophils # (Manual) Nucleated RBC % Basophils # (Manual) APTT Heparin Anti-Xa Level ABG pH POC ABG pO2 ABG pO2 ABG HCO3 ABG O2 Saturation ABG Base Excess POC ABG pCO2 ABG Hemoglobin ABG Oxyhemoglobin ABG Glucose Oxyhemoglobin Sodium Potassium Chloride Carbon Dioxide BUN Creatinine Glucose POC Glucose 127 H 115 H 143 H Lactic Acid Calcium Phosphorus Magnesium AST ALT Lactate Dehydrogenase CK-MB (CK-2) C-Reactive Protein NT-Pro-B Natriuret Pep Total Protein Albumin Arterial Blood Glucose Urine WBC (Auto) 12/01/19 12/01/19 12/01/19 01:18 05:22 12:16 WBC RBC Hgb Hct MCHC RDW MCV MCH Lymph % (Auto) [place] % (Auto) [place] # Eos # Lymph # (Auto) [place] # (Auto) Eos # (Auto) Seg Neutrophils % Seg Neuts % (Manual) Baso # (Auto) Lymphocytes % (Manual) Monocytes % (Manual) Eosinophils % (Manual) Basophils % (Manual) Seg Neutrophils # Seg Neutrophils # Man Lymphocytes # (Manual) Monocytes # (Manual) Eosinophils # (Manual) Nucleated RBC % Basophils # (Manual) APTT Heparin Anti-Xa Level ABG pH POC ABG pO2 ABG pO2 ABG HCO3 ABG O2 Saturation ABG Base Excess POC ABG pCO2 ABG Hemoglobin ABG Oxyhemoglobin ABG Glucose Oxyhemoglobin Sodium Potassium 3.5 L Chloride 107.8 H Carbon Dioxide BUN 37 H Creatinine Glucose 157 H POC Glucose 118 H 148 H Lactic Acid Calcium 8.2 L D Phosphorus Magnesium AST 48 H ALT 60 H Lactate Dehydrogenase 194 H CK-MB (CK-2) C-Reactive Protein 8.50 H NT-Pro-B Natriuret Pep Total Protein 5.5 L Albumin 2.8 L Arterial Blood Glucose Urine WBC (Auto) 12/01/19 12/02/19 12/02/19 18:04 00:05 05:16 WBC 11.4 H RBC Hgb Hct MCHC RDW 15.9 H MCV MCH Lymph % (Auto) [place] % (Auto) 9.9 H [place] # 1.1 H Eos # Lymph # (Auto) [place] # (Auto) Eos # (Auto) Seg Neutrophils % 70.3 H Seg Neuts % (Manual) Baso # (Auto) Lymphocytes % (Manual) Monocytes % (Manual) Eosinophils % (Manual) Basophils % (Manual) Seg Neutrophils # 8.0 H Seg Neutrophils # Man Lymphocytes # (Manual) Monocytes # (Manual) Eosinophils # (Manual) Nucleated RBC % Basophils # (Manual) APTT Heparin Anti-Xa Level ABG pH POC ABG pO2 ABG pO2 ABG HCO3 ABG O2 Saturation ABG Base Excess POC ABG pCO2 ABG Hemoglobin ABG Oxyhemoglobin ABG Glucose Oxyhemoglobin Sodium Potassium Chloride Carbon Dioxide BUN Creatinine Glucose POC Glucose 143 H 107 H Lactic Acid Calcium Phosphorus Magnesium AST ALT Lactate Dehydrogenase CK-MB (CK-2) C-Reactive Protein NT-Pro-B Natriuret Pep Total Protein Albumin Arterial Blood Glucose Urine WBC (Auto) 12/02/19 12/02/19 12/02/19 05:16 06:03 11:52 WBC RBC Hgb Hct MCHC RDW MCV MCH Lymph % (Auto) [place] % (Auto) [place] # Eos # Lymph # (Auto) [place] # (Auto) Eos # (Auto) Seg Neutrophils % Seg Neuts % (Manual) Baso # (Auto) Lymphocytes % (Manual) Monocytes % (Manual) Eosinophils % (Manual) Basophils % (Manual) Seg Neutrophils # Seg Neutrophils # Man Lymphocytes # (Manual) Monocytes # (Manual) Eosinophils # (Manual) Nucleated RBC % Basophils # (Manual) APTT Heparin Anti-Xa Level ABG pH POC ABG pO2 ABG pO2 ABG HCO3 ABG O2 Saturation ABG Base Excess POC ABG pCO2 ABG Hemoglobin ABG Oxyhemoglobin ABG Glucose Oxyhemoglobin Sodium 146 H Potassium Chloride Carbon Dioxide BUN 28 H Creatinine Glucose 123 H POC Glucose 110 H 152 H Lactic Acid Calcium Phosphorus Magnesium AST ALT Lactate Dehydrogenase CK-MB (CK-2) C-Reactive Protein NT-Pro-B Natriuret Pep Total Protein Albumin Arterial Blood Glucose Urine WBC (Auto) 12/02/19 12/02/19 12/02/19 12:58 17:58 23:36 WBC RBC Hgb Hct MCHC RDW MCV MCH Lymph % (Auto) [place] % (Auto) [place] # Eos # Lymph # (Auto) [place] # (Auto) Eos # (Auto) Seg Neutrophils % Seg Neuts % (Manual) Baso # (Auto) Lymphocytes % (Manual) Monocytes % (Manual) Eosinophils % (Manual) Basophils % (Manual) Seg Neutrophils # Seg Neutrophils # Man Lymphocytes # (Manual) Monocytes # (Manual) Eosinophils # (Manual) Nucleated RBC % Basophils # (Manual) APTT Heparin Anti-Xa Level ABG pH POC ABG pO2 78.1 L ABG pO2 ABG HCO3 ABG O2 Saturation ABG Base Excess POC ABG pCO2 ABG Hemoglobin ABG Oxyhemoglobin ABG Glucose Oxyhemoglobin Sodium Potassium Chloride Carbon Dioxide BUN Creatinine Glucose POC Glucose 120 H 123 H Lactic Acid Calcium Phosphorus Magnesium AST ALT Lactate Dehydrogenase CK-MB (CK-2) C-Reactive Protein NT-Pro-B Natriuret Pep Total Protein Albumin Arterial Blood Glucose Urine WBC (Auto) 12/03/19 12/03/19 12/03/19 06:03 06:14 11:46 WBC RBC Hgb Hct MCHC RDW MCV MCH Lymph % (Auto) [place] % (Auto) [place] # Eos # Lymph # (Auto) [place] # (Auto) Eos # (Auto) Seg Neutrophils % Seg Neuts % (Manual) Baso # (Auto) Lymphocytes % (Manual) Monocytes % (Manual) Eosinophils % (Manual) Basophils % (Manual) Seg Neutrophils # Seg Neutrophils # Man Lymphocytes # (Manual) Monocytes # (Manual) Eosinophils # (Manual) Nucleated RBC % Basophils # (Manual) APTT Heparin Anti-Xa Level ABG pH POC ABG pO2 ABG pO2 ABG HCO3 ABG O2 Saturation ABG Base Excess POC ABG pCO2 ABG Hemoglobin ABG Oxyhemoglobin ABG Glucose Oxyhemoglobin Sodium Potassium Chloride Carbon Dioxide BUN Creatinine Glucose POC Glucose 142 H 130 H Lactic Acid Calcium Phosphorus Magnesium AST ALT Lactate Dehydrogenase CK-MB (CK-2) C-Reactive Protein NT-Pro-B Natriuret Pep Total Protein Albumin Arterial Blood Glucose Urine WBC (Auto) 8.0 H 12/03/19 12/03/19 12/04/19 15:50 17:39 00:04 WBC RBC Hgb Hct MCHC RDW MCV MCH Lymph % (Auto) [place] % (Auto) [place] # Eos # Lymph # (Auto) [place] # (Auto) Eos # (Auto) Seg Neutrophils % Seg Neuts % (Manual) Baso # (Auto) Lymphocytes % (Manual) Monocytes % (Manual) Eosinophils % (Manual) Basophils % (Manual) Seg Neutrophils # Seg Neutrophils # Man Lymphocytes # (Manual) Monocytes # (Manual) Eosinophils # (Manual) Nucleated RBC % Basophils # (Manual) APTT Heparin Anti-Xa Level ABG pH POC ABG pO2 ABG pO2 ABG HCO3 ABG O2 Saturation ABG Base Excess POC ABG pCO2 ABG Hemoglobin ABG Oxyhemoglobin ABG Glucose Oxyhemoglobin Sodium Potassium Chloride Carbon Dioxide BUN Creatinine Glucose POC Glucose 146 H 133 H Lactic Acid Calcium Phosphorus 2.40 L Magnesium AST ALT Lactate Dehydrogenase CK-MB (CK-2) C-Reactive Protein NT-Pro-B Natriuret Pep Total Protein Albumin Arterial Blood Glucose Urine WBC (Auto) 12/04/19 12/04/19 12/04/19 03:58 03:58 05:22 WBC 12.5 H RBC Hgb 11.2 L Hct 35.2 L MCHC RDW 16.0 H MCV MCH Lymph % (Auto) [place] % (Auto) 9.6 H [place] # 1.2 H Eos # 0.5 H Lymph # (Auto) [place] # (Auto) Eos # (Auto) Seg Neutrophils % Seg Neuts % (Manual) Baso # (Auto) Lymphocytes % (Manual) Monocytes % (Manual) Eosinophils % (Manual) Basophils % (Manual) Seg Neutrophils # 8.6 H Seg Neutrophils # Man Lymphocytes # (Manual) Monocytes # (Manual) Eosinophils # (Manual) Nucleated RBC % Basophils # (Manual) APTT Heparin Anti-Xa Level ABG pH POC ABG pO2 ABG pO2 ABG HCO3 ABG O2 Saturation ABG Base Excess POC ABG pCO2 ABG Hemoglobin ABG Oxyhemoglobin ABG Glucose Oxyhemoglobin Sodium 146 H Potassium Chloride 108.6 H Carbon Dioxide BUN 30 H Creatinine 0.7 L Glucose 121 H POC Glucose 132 H Lactic Acid Calcium Phosphorus Magnesium AST ALT Lactate Dehydrogenase CK-MB (CK-2) C-Reactive Protein NT-Pro-B Natriuret Pep Total Protein Albumin Arterial Blood Glucose Urine WBC (Auto) 12/04/19 12/04/19 12/05/19 13:26 18:43 00:19 WBC RBC Hgb Hct MCHC RDW MCV MCH Lymph % (Auto) [place] % (Auto) [place] # Eos # Lymph # (Auto) [place] # (Auto) Eos # (Auto) Seg Neutrophils % Seg Neuts % (Manual) Baso # (Auto) Lymphocytes % (Manual) Monocytes % (Manual) Eosinophils % (Manual) Basophils % (Manual) Seg Neutrophils # Seg Neutrophils # Man Lymphocytes # (Manual) Monocytes # (Manual) Eosinophils # (Manual) Nucleated RBC % Basophils # (Manual) APTT Heparin Anti-Xa Level ABG pH POC ABG pO2 ABG pO2 ABG HCO3 ABG O2 Saturation ABG Base Excess POC ABG pCO2 ABG Hemoglobin ABG Oxyhemoglobin ABG Glucose Oxyhemoglobin Sodium Potassium Chloride Carbon Dioxide BUN Creatinine Glucose POC Glucose 185 H 156 H 150 H Lactic Acid Calcium Phosphorus Magnesium AST ALT Lactate Dehydrogenase CK-MB (CK-2) C-Reactive Protein NT-Pro-B Natriuret Pep Total Protein Albumin Arterial Blood Glucose Urine WBC (Auto) 12/05/19 12/05/19 12/05/19 03:37 03:37 05:14 WBC 16.3 H RBC Hgb 11.4 L Hct MCHC RDW 15.6 H MCV MCH Lymph % (Auto) 9.9 L [place] % (Auto) 9.7 H [place] # 1.6 H Eos # Lymph # (Auto) [place] # (Auto) Eos # (Auto) Seg Neutrophils % 78.0 H Seg Neuts % (Manual) Baso # (Auto) Lymphocytes % (Manual) Monocytes % (Manual) Eosinophils % (Manual) Basophils % (Manual) Seg Neutrophils # 12.7 H Seg Neutrophils # Man Lymphocytes # (Manual) Monocytes # (Manual) Eosinophils # (Manual) Nucleated RBC % Basophils # (Manual) APTT Heparin Anti-Xa Level ABG pH POC ABG pO2 ABG pO2 ABG HCO3 ABG O2 Saturation ABG Base Excess POC ABG pCO2 ABG Hemoglobin ABG Oxyhemoglobin ABG Glucose Oxyhemoglobin Sodium 146 H Potassium Chloride 107.2 H Carbon Dioxide BUN 27 H Creatinine 0.7 L Glucose 171 H POC Glucose 168 H Lactic Acid Calcium Phosphorus Magnesium AST ALT Lactate Dehydrogenase CK-MB (CK-2) C-Reactive Protein NT-Pro-B Natriuret Pep Total Protein Albumin Arterial Blood Glucose Urine WBC (Auto) 12/05/19 12/05/19 12/05/19 12:31 18:10 23:58 WBC RBC Hgb Hct MCHC RDW MCV MCH Lymph % (Auto) [place] % (Auto) [place] # Eos # Lymph # (Auto) [place] # (Auto) Eos # (Auto) Seg Neutrophils % Seg Neuts % (Manual) Baso # (Auto) Lymphocytes % (Manual) Monocytes % (Manual) Eosinophils % (Manual) Basophils % (Manual) Seg Neutrophils # Seg Neutrophils # Man Lymphocytes # (Manual) Monocytes # (Manual) Eosinophils # (Manual) Nucleated RBC % Basophils # (Manual) APTT Heparin Anti-Xa Level ABG pH POC ABG pO2 ABG pO2 ABG HCO3 ABG O2 Saturation ABG Base Excess POC ABG pCO2 ABG Hemoglobin ABG Oxyhemoglobin ABG Glucose Oxyhemoglobin Sodium Potassium Chloride Carbon Dioxide BUN Creatinine Glucose POC Glucose 159 H 198 H 115 H Lactic Acid Calcium Phosphorus Magnesium AST ALT Lactate Dehydrogenase CK-MB (CK-2) C-Reactive Protein NT-Pro-B Natriuret Pep Total Protein Albumin Arterial Blood Glucose Urine WBC (Auto) 12/06/19 12/06/19 12/06/19 05:24 05:24 05:25 WBC 14.9 H RBC Hgb 10.8 L Hct 34.0 L MCHC RDW 15.6 H MCV MCH Lymph % (Auto) 10.7 L [place] % (Auto) 8.3 H [place] # 1.2 H Eos # Lymph # (Auto) [place] # (Auto) Eos # (Auto) Seg Neutrophils % 78.7 H Seg Neuts % (Manual) Baso # (Auto) Lymphocytes % (Manual) Monocytes % (Manual) Eosinophils % (Manual) Basophils % (Manual) Seg Neutrophils # 11.7 H Seg Neutrophils # Man Lymphocytes # (Manual) Monocytes # (Manual) Eosinophils # (Manual) Nucleated RBC % Basophils # (Manual) APTT Heparin Anti-Xa Level ABG pH POC ABG pO2 ABG pO2 ABG HCO3 ABG O2 Saturation ABG Base Excess POC ABG pCO2 ABG Hemoglobin ABG Oxyhemoglobin ABG Glucose Oxyhemoglobin Sodium 148 H Potassium 5.1 H Chloride 107.6 H Carbon Dioxide BUN 27 H Creatinine 0.7 L Glucose 155 H POC Glucose 157 H Lactic Acid Calcium Phosphorus Magnesium AST ALT Lactate Dehydrogenase CK-MB (CK-2) C-Reactive Protein NT-Pro-B Natriuret Pep Total Protein Albumin Arterial Blood Glucose Urine WBC (Auto) 12/07/19 12/07/19 12/07/19 00:13 05:34 11:33 WBC RBC Hgb Hct MCHC RDW MCV MCH Lymph % (Auto) [place] % (Auto) [place] # Eos # Lymph # (Auto) [place] # (Auto) Eos # (Auto) Seg Neutrophils % Seg Neuts % (Manual) Baso # (Auto) Lymphocytes % (Manual) Monocytes % (Manual) Eosinophils % (Manual) Basophils % (Manual) Seg Neutrophils # Seg Neutrophils # Man Lymphocytes # (Manual) Monocytes # (Manual) Eosinophils # (Manual) Nucleated RBC % Basophils # (Manual) APTT Heparin Anti-Xa Level ABG pH POC ABG pO2 ABG pO2 ABG HCO3 ABG O2 Saturation ABG Base Excess POC ABG pCO2 ABG Hemoglobin ABG Oxyhemoglobin ABG Glucose Oxyhemoglobin Sodium Potassium Chloride Carbon Dioxide BUN Creatinine Glucose POC Glucose 142 H 111 H 169 H Lactic Acid Calcium Phosphorus Magnesium AST ALT Lactate Dehydrogenase CK-MB (CK-2) C-Reactive Protein NT-Pro-B Natriuret Pep Total Protein Albumin Arterial Blood Glucose Urine WBC (Auto) 12/07/19 12/07/19 12/07/19 12:41 13:25 18:19 WBC 12.4 H RBC 3.53 L Hgb 10.2 L Hct 32.1 L MCHC RDW 15.3 H MCV MCH Lymph % (Auto) 10.6 L [place] % (Auto) 7.8 H [place] # 1.0 H Eos # Lymph # (Auto) [place] # (Auto) Eos # (Auto) Seg Neutrophils % 77.6 H Seg Neuts % (Manual) Baso # (Auto) Lymphocytes % (Manual) Monocytes % (Manual) Eosinophils % (Manual) Basophils % (Manual) Seg Neutrophils # 9.6 H Seg Neutrophils # Man Lymphocytes # (Manual) Monocytes # (Manual) Eosinophils # (Manual) Nucleated RBC % Basophils # (Manual) APTT Heparin Anti-Xa Level ABG pH POC ABG pO2 ABG pO2 ABG HCO3 ABG O2 Saturation ABG Base Excess POC ABG pCO2 ABG Hemoglobin ABG Oxyhemoglobin ABG Glucose Oxyhemoglobin Sodium 149 H Potassium Chloride 108.4 H Carbon Dioxide BUN 26 H Creatinine 0.6 L Glucose 149 H POC Glucose 164 H Lactic Acid Calcium Phosphorus Magnesium 2.60 H AST 121 H ALT 145 H Lactate Dehydrogenase CK-MB (CK-2) C-Reactive Protein NT-Pro-B Natriuret Pep Total Protein Albumin 2.6 L Arterial Blood Glucose Urine WBC (Auto) 12/07/19 12/08/19 12/08/19 22:25 00:02 03:55 WBC 13.3 H RBC 3.40 L Hgb 9.7 L Hct 30.8 L MCHC 31 L RDW 15.5 H MCV MCH Lymph % (Auto) [place] % (Auto) 8.1 H [place] # 1.1 H Eos # Lymph # (Auto) [place] # (Auto) Eos # (Auto) Seg Neutrophils % 73.0 H Seg Neuts % (Manual) Baso # (Auto) Lymphocytes % (Manual) Monocytes % (Manual) Eosinophils % (Manual) Basophils % (Manual) Seg Neutrophils # 9.7 H Seg Neutrophils # Man Lymphocytes # (Manual) Monocytes # (Manual) Eosinophils # (Manual) Nucleated RBC % Basophils # (Manual) APTT Heparin Anti-Xa Level 0.12 L ABG pH POC ABG pO2 ABG pO2 ABG HCO3 ABG O2 Saturation ABG Base Excess POC ABG pCO2 ABG Hemoglobin ABG Oxyhemoglobin ABG Glucose Oxyhemoglobin Sodium Potassium Chloride Carbon Dioxide BUN Creatinine Glucose POC Glucose 151 H Lactic Acid Calcium Phosphorus Magnesium AST ALT Lactate Dehydrogenase CK-MB (CK-2) C-Reactive Protein NT-Pro-B Natriuret Pep Total Protein Albumin Arterial Blood Glucose Urine WBC (Auto) 12/08/19 12/08/19 12/08/19 03:55 05:21 06:01 WBC RBC Hgb Hct MCHC RDW MCV MCH Lymph % (Auto) [place] % (Auto) [place] # Eos # Lymph # (Auto) [place] # (Auto) Eos # (Auto) Seg Neutrophils % Seg Neuts % (Manual) Baso # (Auto) Lymphocytes % (Manual) Monocytes % (Manual) Eosinophils % (Manual) Basophils % (Manual) Seg Neutrophils # Seg Neutrophils # Man Lymphocytes # (Manual) Monocytes # (Manual) Eosinophils # (Manual) Nucleated RBC % Basophils # (Manual) APTT Heparin Anti-Xa Level 0.20 L ABG pH POC ABG pO2 ABG pO2 ABG HCO3 ABG O2 Saturation ABG Base Excess POC ABG pCO2 ABG Hemoglobin ABG Oxyhemoglobin ABG Glucose Oxyhemoglobin Sodium 149 H Potassium Chloride 108.0 H Carbon Dioxide BUN 28 H Creatinine 0.6 L Glucose 144 H POC Glucose 143 H Lactic Acid Calcium Phosphorus Magnesium AST 98 H ALT 145 H Lactate Dehydrogenase CK-MB (CK-2) C-Reactive Protein NT-Pro-B Natriuret Pep Total Protein 6.0 L Albumin 2.4 L Arterial Blood Glucose Urine WBC (Auto) 12/08/19 12/08/19 12/08/19 12:08 18:11 23:53 WBC RBC Hgb Hct MCHC RDW MCV MCH Lymph % (Auto) [place] % (Auto) [place] # Eos # Lymph # (Auto) [place] # (Auto) Eos # (Auto) Seg Neutrophils % Seg Neuts % (Manual) Baso # (Auto) Lymphocytes % (Manual) Monocytes % (Manual) Eosinophils % (Manual) Basophils % (Manual) Seg Neutrophils # Seg Neutrophils # Man Lymphocytes # (Manual) Monocytes # (Manual) Eosinophils # (Manual) Nucleated RBC % Basophils # (Manual) APTT Heparin Anti-Xa Level ABG pH POC ABG pO2 ABG pO2 ABG HCO3 ABG O2 Saturation ABG Base Excess POC ABG pCO2 ABG Hemoglobin ABG Oxyhemoglobin ABG Glucose Oxyhemoglobin Sodium Potassium Chloride Carbon Dioxide BUN Creatinine Glucose POC Glucose 172 H 122 H 162 H Lactic Acid Calcium Phosphorus Magnesium AST ALT Lactate Dehydrogenase CK-MB (CK-2) C-Reactive Protein NT-Pro-B Natriuret Pep Total Protein Albumin Arterial Blood Glucose Urine WBC (Auto) 12/09/19 12/09/19 12/09/19 04:03 04:03 05:53 WBC RBC Hgb 9.1 L Hct 28.9 L MCHC RDW MCV MCH Lymph % (Auto) [place] % (Auto) [place] # Eos # Lymph # (Auto) [place] # (Auto) Eos # (Auto) Seg Neutrophils % Seg Neuts % (Manual) Baso # (Auto) Lymphocytes % (Manual) Monocytes % (Manual) Eosinophils % (Manual) Basophils % (Manual) Seg Neutrophils # Seg Neutrophils # Man Lymphocytes # (Manual) Monocytes # (Manual) Eosinophils # (Manual) Nucleated RBC % Basophils # (Manual) APTT Heparin Anti-Xa Level 0.15 L ABG pH POC ABG pO2 ABG pO2 ABG HCO3 ABG O2 Saturation ABG Base Excess POC ABG pCO2 ABG Hemoglobin ABG Oxyhemoglobin ABG Glucose Oxyhemoglobin Sodium Potassium Chloride Carbon Dioxide BUN Creatinine Glucose POC Glucose 124 H Lactic Acid Calcium Phosphorus Magnesium AST ALT Lactate Dehydrogenase CK-MB (CK-2) C-Reactive Protein NT-Pro-B Natriuret Pep Total Protein Albumin Arterial Blood Glucose Urine WBC (Auto) 12/09/19 12/09/19 12/10/19 09:43 12:41 00:13 WBC RBC Hgb Hct MCHC RDW MCV MCH Lymph % (Auto) [place] % (Auto) [place] # Eos # Lymph # (Auto) [place] # (Auto) Eos # (Auto) Seg Neutrophils % Seg Neuts % (Manual) Baso # (Auto) Lymphocytes % (Manual) Monocytes % (Manual) Eosinophils % (Manual) Basophils % (Manual) Seg Neutrophils # Seg Neutrophils # Man Lymphocytes # (Manual) Monocytes # (Manual) Eosinophils # (Manual) Nucleated RBC % Basophils # (Manual) APTT Heparin Anti-Xa Level ABG pH POC ABG pO2 ABG pO2 ABG HCO3 ABG O2 Saturation ABG Base Excess POC ABG pCO2 ABG Hemoglobin ABG Oxyhemoglobin ABG Glucose Oxyhemoglobin Sodium Potassium Chloride Carbon Dioxide BUN 25 H Creatinine 0.6 L Glucose 131 H POC Glucose 109 H 120 H Lactic Acid Calcium Phosphorus Magnesium AST ALT Lactate Dehydrogenase CK-MB (CK-2) C-Reactive Protein NT-Pro-B Natriuret Pep Total Protein Albumin Arterial Blood Glucose Urine WBC (Auto) 12/10/19 12/10/19 12/10/19 04:14 04:14 12:00 WBC 13.3 H RBC 3.34 L Hgb 9.6 L Hct 30.4 L MCHC RDW 15.4 H MCV MCH Lymph % (Auto) [place] % (Auto) [place] # Eos # Lymph # (Auto) [place] # (Auto) Eos # (Auto) Seg Neutrophils % Seg Neuts % (Manual) 75.0 H Baso # (Auto) Lymphocytes % (Manual) 13.0 L Monocytes % (Manual) 8.0 H Eosinophils % (Manual) Basophils % (Manual) 2.0 H Seg Neutrophils # Seg Neutrophils # Man 10.0 H Lymphocytes # (Manual) Monocytes # (Manual) 1.1 H Eosinophils # (Manual) Nucleated RBC % Basophils # (Manual) 0.3 H APTT Heparin Anti-Xa Level ABG pH POC ABG pO2 ABG pO2 ABG HCO3 ABG O2 Saturation ABG Base Excess POC ABG pCO2 ABG Hemoglobin ABG Oxyhemoglobin ABG Glucose Oxyhemoglobin Sodium 147 H Potassium Chloride 108.3 H Carbon Dioxide BUN 21 H Creatinine 0.6 L Glucose 104 H POC Glucose 133 H Lactic Acid Calcium Phosphorus Magnesium AST ALT Lactate Dehydrogenase CK-MB (CK-2) C-Reactive Protein NT-Pro-B Natriuret Pep Total Protein Albumin Arterial Blood Glucose Urine WBC (Auto) 12/10/19 12/10/19 12/11/19 18:44 21:20 00:08 WBC 14.9 H RBC 3.36 L Hgb 9.6 L Hct 30.5 L MCHC RDW 15.4 H MCV MCH Lymph % (Auto) [place] % (Auto) [place] # Eos # Lymph # (Auto) [place] # (Auto) Eos # (Auto) Seg Neutrophils % Seg Neuts % (Manual) Baso # (Auto) Lymphocytes % (Manual) Monocytes % (Manual) Eosinophils % (Manual) Basophils % (Manual) Seg Neutrophils # Seg Neutrophils # Man Lymphocytes # (Manual) Monocytes # (Manual) Eosinophils # (Manual) Nucleated RBC % Basophils # (Manual) APTT Heparin Anti-Xa Level ABG pH POC ABG pO2 ABG pO2 ABG HCO3 ABG O2 Saturation ABG Base Excess POC ABG pCO2 ABG Hemoglobin ABG Oxyhemoglobin ABG Glucose Oxyhemoglobin Sodium Potassium Chloride Carbon Dioxide BUN Creatinine Glucose POC Glucose 119 H 134 H Lactic Acid Calcium Phosphorus Magnesium AST ALT Lactate Dehydrogenase CK-MB (CK-2) C-Reactive Protein NT-Pro-B Natriuret Pep Total Protein Albumin Arterial Blood Glucose Urine WBC (Auto) 12/11/19 12/11/19 12/11/19 03:54 07:28 08:36 WBC 11.9 H RBC 3.25 L Hgb 9.6 L Hct 29.2 L MCHC RDW 15.7 H MCV MCH Lymph % (Auto) [place] % (Auto) [place] # Eos # Lymph # (Auto) [place] # (Auto) Eos # (Auto) Seg Neutrophils % Seg Neuts % (Manual) Baso # (Auto) Lymphocytes % (Manual) Monocytes % (Manual) Eosinophils % (Manual) Basophils % (Manual) Seg Neutrophils # Seg Neutrophils # Man Lymphocytes # (Manual) Monocytes # (Manual) Eosinophils # (Manual) Nucleated RBC % Basophils # (Manual) APTT Heparin Anti-Xa Level 0.10 L 0.16 L ABG pH POC ABG pO2 ABG pO2 ABG HCO3 ABG O2 Saturation ABG Base Excess POC ABG pCO2 ABG Hemoglobin ABG Oxyhemoglobin ABG Glucose Oxyhemoglobin Sodium Potassium Chloride Carbon Dioxide BUN Creatinine Glucose POC Glucose Lactic Acid Calcium Phosphorus Magnesium AST ALT Lactate Dehydrogenase CK-MB (CK-2) C-Reactive Protein NT-Pro-B Natriuret Pep Total Protein Albumin Arterial Blood Glucose Urine WBC (Auto) 12/11/19 12/11/19 12/11/19 08:36 11:45 17:15 WBC RBC Hgb Hct MCHC RDW MCV MCH Lymph % (Auto) [place] % (Auto) [place] # Eos # Lymph # (Auto) [place] # (Auto) Eos # (Auto) Seg Neutrophils % Seg Neuts % (Manual) Baso # (Auto) Lymphocytes % (Manual) Monocytes % (Manual) Eosinophils % (Manual) Basophils % (Manual) Seg Neutrophils # Seg Neutrophils # Man Lymphocytes # (Manual) Monocytes # (Manual) Eosinophils # (Manual) Nucleated RBC % Basophils # (Manual) APTT Heparin Anti-Xa Level ABG pH POC ABG pO2 ABG pO2 ABG HCO3 ABG O2 Saturation ABG Base Excess POC ABG pCO2 ABG Hemoglobin ABG Oxyhemoglobin ABG Glucose Oxyhemoglobin Sodium Potassium Chloride Carbon Dioxide BUN Creatinine 0.5 L Glucose 128 H POC Glucose 136 H 109 H Lactic Acid Calcium Phosphorus Magnesium AST ALT Lactate Dehydrogenase CK-MB (CK-2) C-Reactive Protein NT-Pro-B Natriuret Pep Total Protein Albumin Arterial Blood Glucose Urine WBC (Auto) 12/12/19 12/12/19 12/12/19 00:03 05:53 05:53 WBC RBC Hgb 8.8 L Hct 27.6 L MCHC RDW MCV MCH Lymph % (Auto) [place] % (Auto) [place] # Eos # Lymph # (Auto) [place] # (Auto) Eos # (Auto) Seg Neutrophils % Seg Neuts % (Manual) Baso # (Auto) Lymphocytes % (Manual) Monocytes % (Manual) Eosinophils % (Manual) Basophils % (Manual) Seg Neutrophils # Seg Neutrophils # Man Lymphocytes # (Manual) Monocytes # (Manual) Eosinophils # (Manual) Nucleated RBC % Basophils # (Manual) APTT Heparin Anti-Xa Level 0.22 L ABG pH POC ABG pO2 ABG pO2 ABG HCO3 ABG O2 Saturation ABG Base Excess POC ABG pCO2 ABG Hemoglobin ABG Oxyhemoglobin ABG Glucose Oxyhemoglobin Sodium Potassium Chloride Carbon Dioxide BUN Creatinine Glucose POC Glucose 116 H Lactic Acid Calcium Phosphorus Magnesium AST ALT Lactate Dehydrogenase CK-MB (CK-2) C-Reactive Protein NT-Pro-B Natriuret Pep Total Protein Albumin Arterial Blood Glucose Urine WBC (Auto) 12/12/19 12/12/19 12/12/19 09:38 12:18 17:44 WBC RBC Hgb Hct MCHC RDW MCV MCH Lymph % (Auto) [place] % (Auto) [place] # Eos # Lymph # (Auto) [place] # (Auto) Eos # (Auto) Seg Neutrophils % Seg Neuts % (Manual) Baso # (Auto) Lymphocytes % (Manual) Monocytes % (Manual) Eosinophils % (Manual) Basophils % (Manual) Seg Neutrophils # Seg Neutrophils # Man Lymphocytes # (Manual) Monocytes # (Manual) Eosinophils # (Manual) Nucleated RBC % Basophils # (Manual) APTT Heparin Anti-Xa Level ABG pH POC ABG pO2 ABG pO2 ABG HCO3 ABG O2 Saturation ABG Base Excess POC ABG pCO2 ABG Hemoglobin ABG Oxyhemoglobin ABG Glucose Oxyhemoglobin Sodium Potassium Chloride Carbon Dioxide BUN Creatinine Glucose POC Glucose 115 H 146 H 146 H Lactic Acid Calcium Phosphorus Magnesium AST ALT Lactate Dehydrogenase CK-MB (CK-2) C-Reactive Protein NT-Pro-B Natriuret Pep Total Protein Albumin Arterial Blood Glucose Urine WBC (Auto) 12/12/19 12/13/19 12/13/19 23:33 05:32 05:32 WBC 13.1 H RBC 3.27 L Hgb 9.5 L Hct 29.3 L MCHC RDW 15.6 H MCV MCH Lymph % (Auto) [place] % (Auto) [place] # Eos # Lymph # (Auto) [place] # (Auto) Eos # (Auto) Seg Neutrophils % Seg Neuts % (Manual) 74.0 H Baso # (Auto) Lymphocytes % (Manual) 8.0 L Monocytes % (Manual) 9.0 H Eosinophils % (Manual) 5.0 H Basophils % (Manual) Seg Neutrophils # Seg Neutrophils # Man 9.7 H Lymphocytes # (Manual) 1.0 L Monocytes # (Manual) 1.2 H Eosinophils # (Manual) 0.7 H Nucleated RBC % Basophils # (Manual) APTT Heparin Anti-Xa Level 0.20 L ABG pH POC ABG pO2 ABG pO2 ABG HCO3 ABG O2 Saturation ABG Base Excess POC ABG pCO2 ABG Hemoglobin ABG Oxyhemoglobin ABG Glucose Oxyhemoglobin Sodium Potassium Chloride Carbon Dioxide BUN Creatinine Glucose POC Glucose 126 H Lactic Acid Calcium Phosphorus Magnesium AST ALT Lactate Dehydrogenase CK-MB (CK-2) C-Reactive Protein NT-Pro-B Natriuret Pep Total Protein Albumin Arterial Blood Glucose Urine WBC (Auto) 12/13/19 12/13/19 12/13/19 05:32 05:46 11:57 WBC RBC Hgb Hct MCHC RDW MCV MCH Lymph % (Auto) [place] % (Auto) [place] # Eos # Lymph # (Auto) [place] # (Auto) Eos # (Auto) Seg Neutrophils % Seg Neuts % (Manual) Baso # (Auto) Lymphocytes % (Manual) Monocytes % (Manual) Eosinophils % (Manual) Basophils % (Manual) Seg Neutrophils # Seg Neutrophils # Man Lymphocytes # (Manual) Monocytes # (Manual) Eosinophils # (Manual) Nucleated RBC % Basophils # (Manual) APTT Heparin Anti-Xa Level ABG pH POC ABG pO2 ABG pO2 ABG HCO3 ABG O2 Saturation ABG Base Excess POC ABG pCO2 ABG Hemoglobin ABG Oxyhemoglobin ABG Glucose Oxyhemoglobin Sodium Potassium Chloride Carbon Dioxide 31 H BUN Creatinine 0.6 L Glucose 114 H POC Glucose 118 H 133 H Lactic Acid Calcium Phosphorus Magnesium AST ALT Lactate Dehydrogenase CK-MB (CK-2) C-Reactive Protein NT-Pro-B Natriuret Pep Total Protein Albumin Arterial Blood Glucose Urine WBC (Auto) 12/13/19 12/13/19 12/14/19 17:44 23:46 05:32 WBC RBC Hgb Hct MCHC RDW MCV MCH Lymph % (Auto) [place] % (Auto) [place] # Eos # Lymph # (Auto) [place] # (Auto) Eos # (Auto) Seg Neutrophils % Seg Neuts % (Manual) Baso # (Auto) Lymphocytes % (Manual) Monocytes % (Manual) Eosinophils % (Manual) Basophils % (Manual) Seg Neutrophils # Seg Neutrophils # Man Lymphocytes # (Manual) Monocytes # (Manual) Eosinophils # (Manual) Nucleated RBC % Basophils # (Manual) APTT Heparin Anti-Xa Level ABG pH POC ABG pO2 ABG pO2 ABG HCO3 ABG O2 Saturation ABG Base Excess POC ABG pCO2 ABG Hemoglobin ABG Oxyhemoglobin ABG Glucose Oxyhemoglobin Sodium Potassium Chloride Carbon Dioxide BUN Creatinine Glucose POC Glucose 161 H 126 H 139 H Lactic Acid Calcium Phosphorus Magnesium AST ALT Lactate Dehydrogenase CK-MB (CK-2) C-Reactive Protein NT-Pro-B Natriuret Pep Total Protein Albumin Arterial Blood Glucose Urine WBC (Auto) 12/14/19 12/14/19 12/14/19 06:03 06:03 09:37 WBC RBC Hgb 9.6 L Hct 30.4 L MCHC RDW MCV MCH Lymph % (Auto) [place] % (Auto) [place] # Eos # Lymph # (Auto) [place] # (Auto) Eos # (Auto) Seg Neutrophils % Seg Neuts % (Manual) Baso # (Auto) Lymphocytes % (Manual) Monocytes % (Manual) Eosinophils % (Manual) Basophils % (Manual) Seg Neutrophils # Seg Neutrophils # Man Lymphocytes # (Manual) Monocytes # (Manual) Eosinophils # (Manual) Nucleated RBC % Basophils # (Manual) APTT Heparin Anti-Xa Level 0.24 L ABG pH POC ABG pO2 ABG pO2 ABG HCO3 ABG O2 Saturation ABG Base Excess POC ABG pCO2 ABG Hemoglobin ABG Oxyhemoglobin ABG Glucose Oxyhemoglobin Sodium Potassium Chloride Carbon Dioxide BUN Creatinine 0.6 L Glucose 162 H POC Glucose Lactic Acid Calcium Phosphorus Magnesium AST 71 H ALT 118 H Lactate Dehydrogenase CK-MB (CK-2) C-Reactive Protein NT-Pro-B Natriuret Pep Total Protein 6.2 L Albumin 2.3 L Arterial Blood Glucose Urine WBC (Auto) 12/14/19 12/14/19 12/15/19 12:06 18:18 00:19 WBC RBC Hgb Hct MCHC RDW MCV MCH Lymph % (Auto) [place] % (Auto) [place] # Eos # Lymph # (Auto) [place] # (Auto) Eos # (Auto) Seg Neutrophils % Seg Neuts % (Manual) Baso # (Auto) Lymphocytes % (Manual) Monocytes % (Manual) Eosinophils % (Manual) Basophils % (Manual) Seg Neutrophils # Seg Neutrophils # Man Lymphocytes # (Manual) Monocytes # (Manual) Eosinophils # (Manual) Nucleated RBC % Basophils # (Manual) APTT Heparin Anti-Xa Level ABG pH POC ABG pO2 ABG pO2 ABG HCO3 ABG O2 Saturation ABG Base Excess POC ABG pCO2 ABG Hemoglobin ABG Oxyhemoglobin ABG Glucose Oxyhemoglobin Sodium Potassium Chloride Carbon Dioxide BUN Creatinine Glucose POC Glucose 147 H 166 H 123 H Lactic Acid Calcium Phosphorus Magnesium AST ALT Lactate Dehydrogenase CK-MB (CK-2) C-Reactive Protein NT-Pro-B Natriuret Pep Total Protein Albumin Arterial Blood Glucose Urine WBC (Auto) 12/15/19 12/15/19 12/15/19 05:28 05:29 05:29 WBC 14.9 H RBC 3.19 L Hgb 9.1 L Hct 28.7 L MCHC RDW 16.0 H MCV MCH Lymph % (Auto) [place] % (Auto) [place] # Eos # Lymph # (Auto) [place] # (Auto) Eos # (Auto) Seg Neutrophils % Seg Neuts % (Manual) Baso # (Auto) Lymphocytes % (Manual) Monocytes % (Manual) Eosinophils % (Manual) Basophils % (Manual) Seg Neutrophils # Seg Neutrophils # Man Lymphocytes # (Manual) Monocytes # (Manual) Eosinophils # (Manual) Nucleated RBC % Basophils # (Manual) APTT Heparin Anti-Xa Level 0.19 L ABG pH POC ABG pO2 ABG pO2 ABG HCO3 ABG O2 Saturation ABG Base Excess POC ABG pCO2 ABG Hemoglobin ABG Oxyhemoglobin ABG Glucose Oxyhemoglobin Sodium Potassium Chloride Carbon Dioxide BUN Creatinine 0.6 L Glucose 110 H POC Glucose Lactic Acid Calcium Phosphorus Magnesium AST ALT Lactate Dehydrogenase CK-MB (CK-2) C-Reactive Protein NT-Pro-B Natriuret Pep Total Protein Albumin Arterial Blood Glucose Urine WBC (Auto) 12/15/19 12/15/19 12/15/19 05:53 11:50 17:26 WBC RBC Hgb Hct MCHC RDW MCV MCH Lymph % (Auto) [place] % (Auto) [place] # Eos # Lymph # (Auto) [place] # (Auto) Eos # (Auto) Seg Neutrophils % Seg Neuts % (Manual) Baso # (Auto) Lymphocytes % (Manual) Monocytes % (Manual) Eosinophils % (Manual) Basophils % (Manual) Seg Neutrophils # Seg Neutrophils # Man Lymphocytes # (Manual) Monocytes # (Manual) Eosinophils # (Manual) Nucleated RBC % Basophils # (Manual) APTT Heparin Anti-Xa Level ABG pH POC ABG pO2 ABG pO2 ABG HCO3 ABG O2 Saturation ABG Base Excess POC ABG pCO2 ABG Hemoglobin ABG Oxyhemoglobin ABG Glucose Oxyhemoglobin Sodium Potassium Chloride Carbon Dioxide BUN Creatinine Glucose POC Glucose 119 H 132 H 128 H Lactic Acid Calcium Phosphorus Magnesium AST ALT Lactate Dehydrogenase CK-MB (CK-2) C-Reactive Protein NT-Pro-B Natriuret Pep Total Protein Albumin Arterial Blood Glucose Urine WBC (Auto) 12/15/19 12/16/19 12/16/19 23:11 05:30 05:46 WBC RBC Hgb 8.8 L Hct 27.9 L MCHC RDW MCV MCH Lymph % (Auto) [place] % (Auto) [place] # Eos # Lymph # (Auto) [place] # (Auto) Eos # (Auto) Seg Neutrophils % Seg Neuts % (Manual) Baso # (Auto) Lymphocytes % (Manual) Monocytes % (Manual) Eosinophils % (Manual) Basophils % (Manual) Seg Neutrophils # Seg Neutrophils # Man Lymphocytes # (Manual) Monocytes # (Manual) Eosinophils # (Manual) Nucleated RBC % Basophils # (Manual) APTT Heparin Anti-Xa Level ABG pH POC ABG pO2 ABG pO2 ABG HCO3 ABG O2 Saturation ABG Base Excess POC ABG pCO2 ABG Hemoglobin ABG Oxyhemoglobin ABG Glucose Oxyhemoglobin Sodium Potassium Chloride Carbon Dioxide BUN Creatinine Glucose POC Glucose 150 H 134 H Lactic Acid Calcium Phosphorus Magnesium AST ALT Lactate Dehydrogenase CK-MB (CK-2) C-Reactive Protein NT-Pro-B Natriuret Pep Total Protein Albumin Arterial Blood Glucose Urine WBC (Auto) 12/16/19 12/16/19 12/16/19 05:46 05:46 11:44 WBC RBC Hgb Hct MCHC RDW MCV MCH Lymph % (Auto) [place] % (Auto) [place] # Eos # Lymph # (Auto) [place] # (Auto) Eos # (Auto) Seg Neutrophils % Seg Neuts % (Manual) Baso # (Auto) Lymphocytes % (Manual) Monocytes % (Manual) Eosinophils % (Manual) Basophils % (Manual) Seg Neutrophils # Seg Neutrophils # Man Lymphocytes # (Manual) Monocytes # (Manual) Eosinophils # (Manual) Nucleated RBC % Basophils # (Manual) APTT Heparin Anti-Xa Level 0.20 L ABG pH POC ABG pO2 ABG pO2 ABG HCO3 ABG O2 Saturation ABG Base Excess POC ABG pCO2 ABG Hemoglobin ABG Oxyhemoglobin ABG Glucose Oxyhemoglobin Sodium Potassium Chloride Carbon Dioxide 31 H BUN Creatinine 0.5 L Glucose 147 H POC Glucose 164 H Lactic Acid Calcium Phosphorus Magnesium AST ALT Lactate Dehydrogenase CK-MB (CK-2) C-Reactive Protein NT-Pro-B Natriuret Pep Total Protein Albumin Arterial Blood Glucose Urine WBC (Auto) 12/16/19 12/16/19 12/17/19 17:17 23:49 05:30 WBC 13.9 H RBC 3.27 L Hgb 9.4 L Hct 29.2 L MCHC RDW 16.0 H MCV MCH Lymph % (Auto) [place] % (Auto) 8.8 H [place] # Eos # Lymph # (Auto) [place] # (Auto) 1.2 H Eos # (Auto) 0.5 H Seg Neutrophils % 70.5 H Seg Neuts % (Manual) Baso # (Auto) 0.2 H Lymphocytes % (Manual) Monocytes % (Manual) Eosinophils % (Manual) Basophils % (Manual) Seg Neutrophils # 9.8 H Seg Neutrophils # Man Lymphocytes # (Manual) Monocytes # (Manual) Eosinophils # (Manual) Nucleated RBC % Basophils # (Manual) APTT Heparin Anti-Xa Level ABG pH POC ABG pO2 ABG pO2 ABG HCO3 ABG O2 Saturation ABG Base Excess POC ABG pCO2 ABG Hemoglobin ABG Oxyhemoglobin ABG Glucose Oxyhemoglobin Sodium Potassium Chloride Carbon Dioxide BUN Creatinine Glucose POC Glucose 162 H 144 H Lactic Acid Calcium Phosphorus Magnesium AST ALT Lactate Dehydrogenase CK-MB (CK-2) C-Reactive Protein NT-Pro-B Natriuret Pep Total Protein Albumin Arterial Blood Glucose Urine WBC (Auto) 12/17/19 12/17/19 12/17/19 05:30 06:06 11:50 WBC RBC Hgb Hct MCHC RDW MCV MCH Lymph % (Auto) [place] % (Auto) [place] # Eos # Lymph # (Auto) [place] # (Auto) Eos # (Auto) Seg Neutrophils % Seg Neuts % (Manual) Baso # (Auto) Lymphocytes % (Manual) Monocytes % (Manual) Eosinophils % (Manual) Basophils % (Manual) Seg Neutrophils # Seg Neutrophils # Man Lymphocytes # (Manual) Monocytes # (Manual) Eosinophils # (Manual) Nucleated RBC % Basophils # (Manual) APTT Heparin Anti-Xa Level ABG pH POC ABG pO2 ABG pO2 ABG HCO3 ABG O2 Saturation ABG Base Excess POC ABG pCO2 ABG Hemoglobin ABG Oxyhemoglobin ABG Glucose Oxyhemoglobin Sodium Potassium Chloride 97.4 L Carbon Dioxide 32 H BUN Creatinine 0.5 L Glucose 135 H POC Glucose 151 H 140 H Lactic Acid Calcium Phosphorus Magnesium AST ALT Lactate Dehydrogenase CK-MB (CK-2) C-Reactive Protein NT-Pro-B Natriuret Pep Total Protein Albumin Arterial Blood Glucose Urine WBC (Auto) 12/17/19 12/17/19 12/18/19 17:50 23:46 05:17 WBC RBC Hgb 8.8 L Hct 28.0 L MCHC RDW MCV MCH Lymph % (Auto) [place] % (Auto) [place] # Eos # Lymph # (Auto) [place] # (Auto) Eos # (Auto) Seg Neutrophils % Seg Neuts % (Manual) Baso # (Auto) Lymphocytes % (Manual) Monocytes % (Manual) Eosinophils % (Manual) Basophils % (Manual) Seg Neutrophils # Seg Neutrophils # Man Lymphocytes # (Manual) Monocytes # (Manual) Eosinophils # (Manual) Nucleated RBC % Basophils # (Manual) APTT Heparin Anti-Xa Level ABG pH POC ABG pO2 ABG pO2 ABG HCO3 ABG O2 Saturation ABG Base Excess POC ABG pCO2 ABG Hemoglobin ABG Oxyhemoglobin ABG Glucose Oxyhemoglobin Sodium Potassium Chloride Carbon Dioxide BUN Creatinine Glucose POC Glucose 158 H 150 H Lactic Acid Calcium Phosphorus Magnesium AST ALT Lactate Dehydrogenase CK-MB (CK-2) C-Reactive Protein NT-Pro-B Natriuret Pep Total Protein Albumin Arterial Blood Glucose Urine WBC (Auto) 12/18/19 12/18/19 12/18/19 05:17 05:49 11:12 WBC RBC Hgb Hct MCHC RDW MCV MCH Lymph % (Auto) [place] % (Auto) [place] # Eos # Lymph # (Auto) [place] # (Auto) Eos # (Auto) Seg Neutrophils % Seg Neuts % (Manual) Baso # (Auto) Lymphocytes % (Manual) Monocytes % (Manual) Eosinophils % (Manual) Basophils % (Manual) Seg Neutrophils # Seg Neutrophils # Man Lymphocytes # (Manual) Monocytes # (Manual) Eosinophils # (Manual) Nucleated RBC % Basophils # (Manual) APTT Heparin Anti-Xa Level 0.16 L ABG pH POC ABG pO2 ABG pO2 ABG HCO3 ABG O2 Saturation ABG Base Excess POC ABG pCO2 ABG Hemoglobin ABG Oxyhemoglobin ABG Glucose Oxyhemoglobin Sodium Potassium Chloride Carbon Dioxide BUN Creatinine Glucose POC Glucose 127 H 191 H Lactic Acid Calcium Phosphorus Magnesium AST ALT Lactate Dehydrogenase CK-MB (CK-2) C-Reactive Protein NT-Pro-B Natriuret Pep Total Protein Albumin Arterial Blood Glucose Urine WBC (Auto) 12/18/19 12/18/19 12/19/19 17:03 20:16 00:08 WBC RBC Hgb Hct MCHC RDW MCV MCH Lymph % (Auto) [place] % (Auto) [place] # Eos # Lymph # (Auto) [place] # (Auto) Eos # (Auto) Seg Neutrophils % Seg Neuts % (Manual) Baso # (Auto) Lymphocytes % (Manual) Monocytes % (Manual) Eosinophils % (Manual) Basophils % (Manual) Seg Neutrophils # Seg Neutrophils # Man Lymphocytes # (Manual) Monocytes # (Manual) Eosinophils # (Manual) Nucleated RBC % Basophils # (Manual) APTT Heparin Anti-Xa Level ABG pH POC ABG pO2 ABG pO2 ABG HCO3 ABG O2 Saturation ABG Base Excess POC ABG pCO2 ABG Hemoglobin ABG Oxyhemoglobin ABG Glucose Oxyhemoglobin Sodium Potassium Chloride Carbon Dioxide BUN Creatinine Glucose POC Glucose 133 H 128 H 129 H Lactic Acid Calcium Phosphorus Magnesium AST ALT Lactate Dehydrogenase CK-MB (CK-2) C-Reactive Protein NT-Pro-B Natriuret Pep Total Protein Albumin Arterial Blood Glucose Urine WBC (Auto) 12/19/19 12/19/19 12/19/19 04:45 04:45 05:35 WBC RBC Hgb Hct MCHC RDW MCV MCH Lymph % (Auto) [place] % (Auto) [place] # Eos # Lymph # (Auto) [place] # (Auto) Eos # (Auto) Seg Neutrophils % Seg Neuts % (Manual) Baso # (Auto) Lymphocytes % (Manual) Monocytes % (Manual) Eosinophils % (Manual) Basophils % (Manual) Seg Neutrophils # Seg Neutrophils # Man Lymphocytes # (Manual) Monocytes # (Manual) Eosinophils # (Manual) Nucleated RBC % Basophils # (Manual) APTT Heparin Anti-Xa Level 0.17 L ABG pH POC ABG pO2 ABG pO2 ABG HCO3 ABG O2 Saturation ABG Base Excess POC ABG pCO2 ABG Hemoglobin ABG Oxyhemoglobin ABG Glucose Oxyhemoglobin Sodium Potassium Chloride Carbon Dioxide BUN Creatinine Glucose POC Glucose 120 H Lactic Acid Calcium Phosphorus Magnesium AST ALT Lactate Dehydrogenase 228 H CK-MB (CK-2) C-Reactive Protein NT-Pro-B Natriuret Pep Total Protein Albumin Arterial Blood Glucose Urine WBC (Auto) 12/19/19 12/19/19 12/19/19 09:20 11:32 11:32 WBC 14.6 H RBC 3.08 L Hgb 9.0 L Hct 26.8 L MCHC RDW 15.9 H MCV MCH Lymph % (Auto) [place] % (Auto) [place] # Eos # Lymph # (Auto) [place] # (Auto) Eos # (Auto) Seg Neutrophils % Seg Neuts % (Manual) 82.0 H Baso # (Auto) Lymphocytes % (Manual) 10.0 L Monocytes % (Manual) Eosinophils % (Manual) Basophils % (Manual) Seg Neutrophils # Seg Neutrophils # Man 12.0 H Lymphocytes # (Manual) Monocytes # (Manual) 0.9 H Eosinophils # (Manual) Nucleated RBC % 1.0 H Basophils # (Manual) APTT Heparin Anti-Xa Level ABG pH 7.451 H POC ABG pO2 ABG pO2 62.6 L ABG HCO3 33.2 H ABG O2 Saturation 93.8 L ABG Base Excess 8.3 H POC ABG pCO2 ABG Hemoglobin 8.3 L ABG Oxyhemoglobin ABG Glucose Oxyhemoglobin 91.9 L Sodium Potassium Chloride 95.0 L Carbon Dioxide 33 H BUN 22 H Creatinine 0.6 L Glucose 150 H POC Glucose Lactic Acid Calcium Phosphorus Magnesium AST ALT Lactate Dehydrogenase CK-MB (CK-2) C-Reactive Protein NT-Pro-B Natriuret Pep Total Protein 6.2 L Albumin 2.4 L Arterial Blood Glucose Urine WBC (Auto) 12/19/19 12/19/19 12/20/19 11:56 18:17 00:09 WBC RBC Hgb Hct MCHC RDW MCV MCH Lymph % (Auto) [place] % (Auto) [place] # Eos # Lymph # (Auto) [place] # (Auto) Eos # (Auto) Seg Neutrophils % Seg Neuts % (Manual) Baso # (Auto) Lymphocytes % (Manual) Monocytes % (Manual) Eosinophils % (Manual) Basophils % (Manual) Seg Neutrophils # Seg Neutrophils # Man Lymphocytes # (Manual) Monocytes # (Manual) Eosinophils # (Manual) Nucleated RBC % Basophils # (Manual) APTT Heparin Anti-Xa Level ABG pH POC ABG pO2 ABG pO2 ABG HCO3 ABG O2 Saturation ABG Base Excess POC ABG pCO2 ABG Hemoglobin ABG Oxyhemoglobin ABG Glucose Oxyhemoglobin Sodium Potassium Chloride Carbon Dioxide BUN Creatinine Glucose POC Glucose 156 H 156 H 155 H Lactic Acid Calcium Phosphorus Magnesium AST ALT Lactate Dehydrogenase CK-MB (CK-2) C-Reactive Protein NT-Pro-B Natriuret Pep Total Protein Albumin Arterial Blood Glucose Urine WBC (Auto) 12/20/19 12/20/19 12/20/19 05:26 06:02 18:17 WBC RBC Hgb Hct MCHC RDW MCV MCH Lymph % (Auto) [place] % (Auto) [place] # Eos # Lymph # (Auto) [place] # (Auto) Eos # (Auto) Seg Neutrophils % Seg Neuts % (Manual) Baso # (Auto) Lymphocytes % (Manual) Monocytes % (Manual) Eosinophils % (Manual) Basophils % (Manual) Seg Neutrophils # Seg Neutrophils # Man Lymphocytes # (Manual) Monocytes # (Manual) Eosinophils # (Manual) Nucleated RBC % Basophils # (Manual) APTT Heparin Anti-Xa Level 0.19 L ABG pH POC ABG pO2 ABG pO2 ABG HCO3 ABG O2 Saturation ABG Base Excess POC ABG pCO2 ABG Hemoglobin ABG Oxyhemoglobin ABG Glucose Oxyhemoglobin Sodium Potassium Chloride Carbon Dioxide BUN Creatinine Glucose POC Glucose 137 H 128 H Lactic Acid Calcium Phosphorus Magnesium AST ALT Lactate Dehydrogenase CK-MB (CK-2) C-Reactive Protein NT-Pro-B Natriuret Pep Total Protein Albumin Arterial Blood Glucose Urine WBC (Auto) 12/20/19 12/21/19 12/21/19 23:34 05:31 05:31 WBC 12.7 H RBC 3.09 L Hgb 8.9 L Hct 27.4 L MCHC RDW 15.8 H MCV MCH Lymph % (Auto) 12.1 L [place] % (Auto) 7.8 H [place] # Eos # Lymph # (Auto) [place] # (Auto) 1.0 H Eos # (Auto) Seg Neutrophils % 77.1 H Seg Neuts % (Manual) Baso # (Auto) Lymphocytes % (Manual) Monocytes % (Manual) Eosinophils % (Manual) Basophils % (Manual) Seg Neutrophils # 9.8 H Seg Neutrophils # Man Lymphocytes # (Manual) Monocytes # (Manual) Eosinophils # (Manual) Nucleated RBC % Basophils # (Manual) APTT Heparin Anti-Xa Level ABG pH POC ABG pO2 ABG pO2 ABG HCO3 ABG O2 Saturation ABG Base Excess POC ABG pCO2 ABG Hemoglobin ABG Oxyhemoglobin ABG Glucose Oxyhemoglobin Sodium Potassium Chloride 96.9 L Carbon Dioxide 37 H BUN 27 H Creatinine 0.7 L Glucose 140 H POC Glucose 145 H Lactic Acid Calcium Phosphorus Magnesium AST ALT Lactate Dehydrogenase CK-MB (CK-2) C-Reactive Protein NT-Pro-B Natriuret Pep Total Protein Albumin Arterial Blood Glucose Urine WBC (Auto) 12/21/19 12/21/19 12/21/19 05:38 10:13 11:51 WBC RBC Hgb Hct MCHC RDW MCV MCH Lymph % (Auto) [place] % (Auto) [place] # Eos # Lymph # (Auto) [place] # (Auto) Eos # (Auto) Seg Neutrophils % Seg Neuts % (Manual) Baso # (Auto) Lymphocytes % (Manual) Monocytes % (Manual) Eosinophils % (Manual) Basophils % (Manual) Seg Neutrophils # Seg Neutrophils # Man Lymphocytes # (Manual) Monocytes # (Manual) Eosinophils # (Manual) Nucleated RBC % Basophils # (Manual) APTT 23.9 L Heparin Anti-Xa Level < 0.10 L ABG pH POC ABG pO2 ABG pO2 ABG HCO3 ABG O2 Saturation ABG Base Excess POC ABG pCO2 ABG Hemoglobin ABG Oxyhemoglobin ABG Glucose Oxyhemoglobin Sodium Potassium Chloride Carbon Dioxide BUN Creatinine Glucose POC Glucose 151 H 145 H Lactic Acid Calcium Phosphorus Magnesium AST ALT Lactate Dehydrogenase CK-MB (CK-2) C-Reactive Protein NT-Pro-B Natriuret Pep Total Protein Albumin Arterial Blood Glucose Urine WBC (Auto) 12/21/19 12/22/19 12/22/19 17:16 00:01 01:33 WBC RBC Hgb Hct MCHC RDW MCV MCH Lymph % (Auto) [place] % (Auto) [place] # Eos # Lymph # (Auto) [place] # (Auto) Eos # (Auto) Seg Neutrophils % Seg Neuts % (Manual) Baso # (Auto) Lymphocytes % (Manual) Monocytes % (Manual) Eosinophils % (Manual) Basophils % (Manual) Seg Neutrophils # Seg Neutrophils # Man Lymphocytes # (Manual) Monocytes # (Manual) Eosinophils # (Manual) Nucleated RBC % Basophils # (Manual) APTT Heparin Anti-Xa Level 0.10 L ABG pH POC ABG pO2 ABG pO2 ABG HCO3 ABG O2 Saturation ABG Base Excess POC ABG pCO2 ABG Hemoglobin ABG Oxyhemoglobin ABG Glucose Oxyhemoglobin Sodium Potassium Chloride Carbon Dioxide BUN Creatinine Glucose POC Glucose 167 H 179 H Lactic Acid Calcium Phosphorus Magnesium AST ALT Lactate Dehydrogenase CK-MB (CK-2) C-Reactive Protein NT-Pro-B Natriuret Pep Total Protein Albumin Arterial Blood Glucose Urine WBC (Auto) 12/22/19 12/22/19 12/22/19 03:22 05:10 05:10 WBC 13.8 H RBC 3.20 L Hgb 8.9 L Hct 28.1 L MCHC RDW 15.9 H MCV MCH Lymph % (Auto) [place] % (Auto) [place] # Eos # Lymph # (Auto) [place] # (Auto) Eos # (Auto) Seg Neutrophils % Seg Neuts % (Manual) Baso # (Auto) Lymphocytes % (Manual) Monocytes % (Manual) Eosinophils % (Manual) Basophils % (Manual) Seg Neutrophils # Seg Neutrophils # Man Lymphocytes # (Manual) Monocytes # (Manual) Eosinophils # (Manual) Nucleated RBC % Basophils # (Manual) APTT Heparin Anti-Xa Level ABG pH POC ABG pO2 52.3 L ABG pO2 ABG HCO3 ABG O2 Saturation ABG Base Excess POC ABG pCO2 52.9 H ABG Hemoglobin 10.7 L ABG Oxyhemoglobin 84 L ABG Glucose Oxyhemoglobin Sodium Potassium Chloride 96.6 L Carbon Dioxide BUN 25 H Creatinine 0.7 L Glucose 129 H POC Glucose Lactic Acid Calcium Phosphorus Magnesium AST ALT Lactate Dehydrogenase CK-MB (CK-2) C-Reactive Protein NT-Pro-B Natriuret Pep Total Protein Albumin Arterial Blood Glucose Urine WBC (Auto) 12/22/19 12/22/19 12/22/19 05:18 12:32 12:43 WBC RBC Hgb Hct MCHC RDW MCV MCH Lymph % (Auto) [place] % (Auto) [place] # Eos # Lymph # (Auto) [place] # (Auto) Eos # (Auto) Seg Neutrophils % Seg Neuts % (Manual) Baso # (Auto) Lymphocytes % (Manual) Monocytes % (Manual) Eosinophils % (Manual) Basophils % (Manual) Seg Neutrophils # Seg Neutrophils # Man Lymphocytes # (Manual) Monocytes # (Manual) Eosinophils # (Manual) Nucleated RBC % Basophils # (Manual) APTT Heparin Anti-Xa Level 0.18 L ABG pH POC ABG pO2 ABG pO2 ABG HCO3 ABG O2 Saturation ABG Base Excess POC ABG pCO2 ABG Hemoglobin ABG Oxyhemoglobin ABG Glucose Oxyhemoglobin Sodium Potassium Chloride Carbon Dioxide BUN Creatinine Glucose POC Glucose 131 H 208 H Lactic Acid Calcium Phosphorus Magnesium AST ALT Lactate Dehydrogenase CK-MB (CK-2) C-Reactive Protein NT-Pro-B Natriuret Pep Total Protein Albumin Arterial Blood Glucose Urine WBC (Auto) 12/22/19 12/22/19 12/23/19 17:44 23:20 03:51 WBC 15.2 H RBC 3.43 L Hgb 9.6 L Hct 30.3 L MCHC RDW 15.9 H MCV MCH Lymph % (Auto) [place] % (Auto) [place] # Eos # Lymph # (Auto) [place] # (Auto) Eos # (Auto) Seg Neutrophils % Seg Neuts % (Manual) Baso # (Auto) Lymphocytes % (Manual) Monocytes % (Manual) Eosinophils % (Manual) Basophils % (Manual) Seg Neutrophils # Seg Neutrophils # Man Lymphocytes # (Manual) Monocytes # (Manual) Eosinophils # (Manual) Nucleated RBC % Basophils # (Manual) APTT Heparin Anti-Xa Level ABG pH POC ABG pO2 ABG pO2 ABG HCO3 ABG O2 Saturation ABG Base Excess POC ABG pCO2 ABG Hemoglobin ABG Oxyhemoglobin ABG Glucose Oxyhemoglobin Sodium Potassium Chloride Carbon Dioxide BUN Creatinine Glucose POC Glucose 209 H 119 H Lactic Acid Calcium Phosphorus Magnesium AST ALT Lactate Dehydrogenase CK-MB (CK-2) C-Reactive Protein NT-Pro-B Natriuret Pep Total Protein Albumin Arterial Blood Glucose Urine WBC (Auto) 12/23/19 12/23/19 12/23/19 03:51 05:31 12:09 WBC RBC Hgb Hct MCHC RDW MCV MCH Lymph % (Auto) [place] % (Auto) [place] # Eos # Lymph # (Auto) [place] # (Auto) Eos # (Auto) Seg Neutrophils % Seg Neuts % (Manual) Baso # (Auto) Lymphocytes % (Manual) Monocytes % (Manual) Eosinophils % (Manual) Basophils % (Manual) Seg Neutrophils # Seg Neutrophils # Man Lymphocytes # (Manual) Monocytes # (Manual) Eosinophils # (Manual) Nucleated RBC % Basophils # (Manual) APTT Heparin Anti-Xa Level ABG pH POC ABG pO2 ABG pO2 ABG HCO3 ABG O2 Saturation ABG Base Excess POC ABG pCO2 ABG Hemoglobin ABG Oxyhemoglobin ABG Glucose Oxyhemoglobin Sodium Potassium Chloride 97.2 L Carbon Dioxide 31 H BUN 23 H Creatinine 0.6 L Glucose 153 H POC Glucose 149 H 144 H Lactic Acid Calcium Phosphorus Magnesium AST ALT Lactate Dehydrogenase CK-MB (CK-2) C-Reactive Protein NT-Pro-B Natriuret Pep Total Protein Albumin Arterial Blood Glucose Urine WBC (Auto) 12/23/19 12/23/19 12/23/19 15:30 17:49 23:31 WBC RBC Hgb Hct MCHC RDW MCV MCH Lymph % (Auto) [place] % (Auto) [place] # Eos # Lymph # (Auto) [place] # (Auto) Eos # (Auto) Seg Neutrophils % Seg Neuts % (Manual) Baso # (Auto) Lymphocytes % (Manual) Monocytes % (Manual) Eosinophils % (Manual) Basophils % (Manual) Seg Neutrophils # Seg Neutrophils # Man Lymphocytes # (Manual) Monocytes # (Manual) Eosinophils # (Manual) Nucleated RBC % Basophils # (Manual) APTT Heparin Anti-Xa Level 0.21 L ABG pH POC ABG pO2 ABG pO2 ABG HCO3 ABG O2 Saturation ABG Base Excess POC ABG pCO2 ABG Hemoglobin ABG Oxyhemoglobin ABG Glucose Oxyhemoglobin Sodium Potassium Chloride Carbon Dioxide BUN Creatinine Glucose POC Glucose 192 H 151 H Lactic Acid Calcium Phosphorus Magnesium AST ALT Lactate Dehydrogenase CK-MB (CK-2) C-Reactive Protein NT-Pro-B Natriuret Pep Total Protein Albumin Arterial Blood Glucose Urine WBC (Auto) 12/24/19 12/24/19 12/24/19 05:34 12:13 16:50 WBC RBC Hgb Hct MCHC RDW MCV MCH Lymph % (Auto) [place] % (Auto) [place] # Eos # Lymph # (Auto) [place] # (Auto) Eos # (Auto) Seg Neutrophils % Seg Neuts % (Manual) Baso # (Auto) Lymphocytes % (Manual) Monocytes % (Manual) Eosinophils % (Manual) Basophils % (Manual) Seg Neutrophils # Seg Neutrophils # Man Lymphocytes # (Manual) Monocytes # (Manual) Eosinophils # (Manual) Nucleated RBC % Basophils # (Manual) APTT Heparin Anti-Xa Level 0.16 L ABG pH POC ABG pO2 ABG pO2 ABG HCO3 ABG O2 Saturation ABG Base Excess POC ABG pCO2 ABG Hemoglobin ABG Oxyhemoglobin ABG Glucose Oxyhemoglobin Sodium Potassium Chloride Carbon Dioxide BUN Creatinine Glucose POC Glucose 145 H 124 H Lactic Acid Calcium Phosphorus Magnesium AST ALT Lactate Dehydrogenase CK-MB (CK-2) C-Reactive Protein NT-Pro-B Natriuret Pep Total Protein Albumin Arterial Blood Glucose Urine WBC (Auto) 12/24/19 12/25/19 12/25/19 17:53 00:14 04:18 WBC 12.9 H RBC 3.30 L Hgb 9.1 L Hct 28.8 L MCHC RDW 16.4 H MCV MCH Lymph % (Auto) [place] % (Auto) 7.8 H [place] # Eos # Lymph # (Auto) [place] # (Auto) 1.0 H Eos # (Auto) Seg Neutrophils % 75.5 H Seg Neuts % (Manual) Baso # (Auto) Lymphocytes % (Manual) Monocytes % (Manual) Eosinophils % (Manual) Basophils % (Manual) Seg Neutrophils # 9.7 H Seg Neutrophils # Man Lymphocytes # (Manual) Monocytes # (Manual) Eosinophils # (Manual) Nucleated RBC % Basophils # (Manual) APTT Heparin Anti-Xa Level ABG pH POC ABG pO2 ABG pO2 ABG HCO3 ABG O2 Saturation ABG Base Excess POC ABG pCO2 ABG Hemoglobin ABG Oxyhemoglobin ABG Glucose Oxyhemoglobin Sodium Potassium Chloride Carbon Dioxide BUN Creatinine Glucose POC Glucose 164 H 148 H Lactic Acid Calcium Phosphorus Magnesium AST ALT Lactate Dehydrogenase CK-MB (CK-2) C-Reactive Protein NT-Pro-B Natriuret Pep Total Protein Albumin Arterial Blood Glucose Urine WBC (Auto) 12/25/19 12/25/19 12/25/19 04:18 05:38 11:44 WBC RBC Hgb Hct MCHC RDW MCV MCH Lymph % (Auto) [place] % (Auto) [place] # Eos # Lymph # (Auto) [place] # (Auto) Eos # (Auto) Seg Neutrophils % Seg Neuts % (Manual) Baso # (Auto) Lymphocytes % (Manual) Monocytes % (Manual) Eosinophils % (Manual) Basophils % (Manual) Seg Neutrophils # Seg Neutrophils # Man Lymphocytes # (Manual) Monocytes # (Manual) Eosinophils # (Manual) Nucleated RBC % Basophils # (Manual) APTT Heparin Anti-Xa Level ABG pH POC ABG pO2 ABG pO2 ABG HCO3 ABG O2 Saturation ABG Base Excess POC ABG pCO2 ABG Hemoglobin ABG Oxyhemoglobin ABG Glucose Oxyhemoglobin Sodium Potassium Chloride Carbon Dioxide 33 H BUN 27 H Creatinine 0.6 L Glucose 132 H POC Glucose 152 H 166 H Lactic Acid Calcium Phosphorus Magnesium AST ALT Lactate Dehydrogenase CK-MB (CK-2) C-Reactive Protein NT-Pro-B Natriuret Pep Total Protein Albumin Arterial Blood Glucose Urine WBC (Auto) 12/25/19 12/26/19 12/26/19 18:29 00:17 00:18 WBC RBC Hgb Hct MCHC RDW MCV MCH Lymph % (Auto) [place] % (Auto) [place] # Eos # Lymph # (Auto) [place] # (Auto) Eos # (Auto) Seg Neutrophils % Seg Neuts % (Manual) Baso # (Auto) Lymphocytes % (Manual) Monocytes % (Manual) Eosinophils % (Manual) Basophils % (Manual) Seg Neutrophils # Seg Neutrophils # Man Lymphocytes # (Manual) Monocytes # (Manual) Eosinophils # (Manual) Nucleated RBC % Basophils # (Manual) APTT Heparin Anti-Xa Level ABG pH POC ABG pO2 ABG pO2 ABG HCO3 ABG O2 Saturation ABG Base Excess POC ABG pCO2 ABG Hemoglobin ABG Oxyhemoglobin ABG Glucose Oxyhemoglobin Sodium Potassium Chloride 97.8 L Carbon Dioxide BUN 25 H Creatinine 0.6 L Glucose 140 H POC Glucose 194 H 151 H Lactic Acid Calcium Phosphorus Magnesium AST ALT Lactate Dehydrogenase CK-MB (CK-2) C-Reactive Protein NT-Pro-B Natriuret Pep Total Protein Albumin Arterial Blood Glucose Urine WBC (Auto) 12/26/19 12/26/19 12/26/19 05:36 11:41 17:50 WBC RBC Hgb Hct MCHC RDW MCV MCH Lymph % (Auto) [place] % (Auto) [place] # Eos # Lymph # (Auto) [place] # (Auto) Eos # (Auto) Seg Neutrophils % Seg Neuts % (Manual) Baso # (Auto) Lymphocytes % (Manual) Monocytes % (Manual) Eosinophils % (Manual) Basophils % (Manual) Seg Neutrophils # Seg Neutrophils # Man Lymphocytes # (Manual) Monocytes # (Manual) Eosinophils # (Manual) Nucleated RBC % Basophils # (Manual) APTT Heparin Anti-Xa Level ABG pH POC ABG pO2 ABG pO2 ABG HCO3 ABG O2 Saturation ABG Base Excess POC ABG pCO2 ABG Hemoglobin ABG Oxyhemoglobin ABG Glucose Oxyhemoglobin Sodium Potassium Chloride Carbon Dioxide BUN Creatinine Glucose POC Glucose 156 H 148 H 139 H Lactic Acid Calcium Phosphorus Magnesium AST ALT Lactate Dehydrogenase CK-MB (CK-2) C-Reactive Protein NT-Pro-B Natriuret Pep Total Protein Albumin Arterial Blood Glucose Urine WBC (Auto) 12/26/19 12/27/19 12/27/19 23:19 05:34 12:02 WBC RBC Hgb Hct MCHC RDW MCV MCH Lymph % (Auto) [place] % (Auto) [place] # Eos # Lymph # (Auto) [place] # (Auto) Eos # (Auto) Seg Neutrophils % Seg Neuts % (Manual) Baso # (Auto) Lymphocytes % (Manual) Monocytes % (Manual) Eosinophils % (Manual) Basophils % (Manual) Seg Neutrophils # Seg Neutrophils # Man Lymphocytes # (Manual) Monocytes # (Manual) Eosinophils # (Manual) Nucleated RBC % Basophils # (Manual) APTT Heparin Anti-Xa Level ABG pH POC ABG pO2 ABG pO2 ABG HCO3 ABG O2 Saturation ABG Base Excess POC ABG pCO2 ABG Hemoglobin ABG Oxyhemoglobin ABG Glucose Oxyhemoglobin Sodium Potassium Chloride Carbon Dioxide BUN Creatinine Glucose POC Glucose 161 H 145 H 157 H Lactic Acid Calcium Phosphorus Magnesium AST ALT Lactate Dehydrogenase CK-MB (CK-2) C-Reactive Protein NT-Pro-B Natriuret Pep Total Protein Albumin Arterial Blood Glucose Urine WBC (Auto) 12/27/19 12/27/19 12/27/19 17:35 20:11 23:00 WBC RBC Hgb Hct MCHC RDW MCV MCH Lymph % (Auto) [place] % (Auto) [place] # Eos # Lymph # (Auto) [place] # (Auto) Eos # (Auto) Seg Neutrophils % Seg Neuts % (Manual) Baso # (Auto) Lymphocytes % (Manual) Monocytes % (Manual) Eosinophils % (Manual) Basophils % (Manual) Seg Neutrophils # Seg Neutrophils # Man Lymphocytes # (Manual) Monocytes # (Manual) Eosinophils # (Manual) Nucleated RBC % Basophils # (Manual) APTT Heparin Anti-Xa Level 0.19 L ABG pH POC ABG pO2 ABG pO2 ABG HCO3 ABG O2 Saturation ABG Base Excess POC ABG pCO2 ABG Hemoglobin ABG Oxyhemoglobin ABG Glucose Oxyhemoglobin Sodium Potassium Chloride Carbon Dioxide BUN Creatinine Glucose POC Glucose 158 H 155 H Lactic Acid Calcium Phosphorus Magnesium AST ALT Lactate Dehydrogenase CK-MB (CK-2) C-Reactive Protein NT-Pro-B Natriuret Pep Total Protein Albumin Arterial Blood Glucose Urine WBC (Auto) 12/27/19 12/28/19 12/28/19 23:45 02:41 02:41 WBC 13.0 H RBC 3.48 L Hgb 9.5 L Hct 30.6 L MCHC 31 L RDW 16.6 H MCV MCH 27 L Lymph % (Auto) 13.0 L [place] % (Auto) 8.0 H [place] # Eos # Lymph # (Auto) [place] # (Auto) 1.0 H Eos # (Auto) Seg Neutrophils % 76.3 H Seg Neuts % (Manual) Baso # (Auto) Lymphocytes % (Manual) Monocytes % (Manual) Eosinophils % (Manual) Basophils % (Manual) Seg Neutrophils # 9.9 H Seg Neutrophils # Man Lymphocytes # (Manual) Monocytes # (Manual) Eosinophils # (Manual) Nucleated RBC % Basophils # (Manual) APTT Heparin Anti-Xa Level ABG pH POC ABG pO2 ABG pO2 ABG HCO3 ABG O2 Saturation ABG Base Excess POC ABG pCO2 ABG Hemoglobin ABG Oxyhemoglobin ABG Glucose Oxyhemoglobin Sodium Potassium Chloride Carbon Dioxide BUN 22 H Creatinine 0.6 L Glucose 101 H POC Glucose 130 H Lactic Acid Calcium Phosphorus Magnesium AST ALT Lactate Dehydrogenase CK-MB (CK-2) C-Reactive Protein NT-Pro-B Natriuret Pep Total Protein Albumin Arterial Blood Glucose Urine WBC (Auto) 12/28/19 12/28/19 12/28/19 06:00 12:34 18:13 WBC RBC Hgb Hct MCHC RDW MCV MCH Lymph % (Auto) [place] % (Auto) [place] # Eos # Lymph # (Auto) [place] # (Auto) Eos # (Auto) Seg Neutrophils % Seg Neuts % (Manual) Baso # (Auto) Lymphocytes % (Manual) Monocytes % (Manual) Eosinophils % (Manual) Basophils % (Manual) Seg Neutrophils # Seg Neutrophils # Man Lymphocytes # (Manual) Monocytes # (Manual) Eosinophils # (Manual) Nucleated RBC % Basophils # (Manual) APTT Heparin Anti-Xa Level ABG pH POC ABG pO2 ABG pO2 ABG HCO3 ABG O2 Saturation ABG Base Excess POC ABG pCO2 ABG Hemoglobin ABG Oxyhemoglobin ABG Glucose Oxyhemoglobin Sodium Potassium Chloride Carbon Dioxide BUN Creatinine Glucose POC Glucose 150 H 161 H 128 H Lactic Acid Calcium Phosphorus Magnesium AST ALT Lactate Dehydrogenase CK-MB (CK-2) C-Reactive Protein NT-Pro-B Natriuret Pep Total Protein Albumin Arterial Blood Glucose Urine WBC (Auto) 12/28/19 12/29/19 12/29/19 23:36 05:21 11:40 WBC RBC Hgb Hct MCHC RDW MCV MCH Lymph % (Auto) [place] % (Auto) [place] # Eos # Lymph # (Auto) [place] # (Auto) Eos # (Auto) Seg Neutrophils % Seg Neuts % (Manual) Baso # (Auto) Lymphocytes % (Manual) Monocytes % (Manual) Eosinophils % (Manual) Basophils % (Manual) Seg Neutrophils # Seg Neutrophils # Man Lymphocytes # (Manual) Monocytes # (Manual) Eosinophils # (Manual) Nucleated RBC % Basophils # (Manual) APTT Heparin Anti-Xa Level ABG pH POC ABG pO2 ABG pO2 ABG HCO3 ABG O2 Saturation ABG Base Excess POC ABG pCO2 ABG Hemoglobin ABG Oxyhemoglobin ABG Glucose Oxyhemoglobin Sodium Potassium Chloride Carbon Dioxide BUN Creatinine Glucose POC Glucose 137 H 136 H 166 H Lactic Acid Calcium Phosphorus Magnesium AST ALT Lactate Dehydrogenase CK-MB (CK-2) C-Reactive Protein NT-Pro-B Natriuret Pep Total Protein Albumin Arterial Blood Glucose Urine WBC (Auto) 12/29/19 12/29/19 12/29/19 17:23 19:21 23:38 WBC RBC Hgb Hct MCHC RDW MCV MCH Lymph % (Auto) [place] % (Auto) [place] # Eos # Lymph # (Auto) [place] # (Auto) Eos # (Auto) Seg Neutrophils % Seg Neuts % (Manual) Baso # (Auto) Lymphocytes % (Manual) Monocytes % (Manual) Eosinophils % (Manual) Basophils % (Manual) Seg Neutrophils # Seg Neutrophils # Man Lymphocytes # (Manual) Monocytes # (Manual) Eosinophils # (Manual) Nucleated RBC % Basophils # (Manual) APTT Heparin Anti-Xa Level 0.20 L ABG pH POC ABG pO2 ABG pO2 ABG HCO3 ABG O2 Saturation ABG Base Excess POC ABG pCO2 ABG Hemoglobin ABG Oxyhemoglobin ABG Glucose Oxyhemoglobin Sodium Potassium Chloride Carbon Dioxide BUN Creatinine Glucose POC Glucose 144 H 141 H Lactic Acid Calcium Phosphorus Magnesium AST ALT Lactate Dehydrogenase CK-MB (CK-2) C-Reactive Protein NT-Pro-B Natriuret Pep Total Protein Albumin Arterial Blood Glucose Urine WBC (Auto) 12/30/19 12/30/19 12/30/19 03:58 03:58 04:59 WBC RBC 3.54 L Hgb 9.8 L Hct 30.7 L MCHC RDW 16.8 H MCV MCH Lymph % (Auto) [place] % (Auto) [place] # Eos # Lymph # (Auto) [place] # (Auto) Eos # (Auto) Seg Neutrophils % Seg Neuts % (Manual) Baso # (Auto) Lymphocytes % (Manual) Monocytes % (Manual) Eosinophils % (Manual) Basophils % (Manual) Seg Neutrophils # Seg Neutrophils # Man Lymphocytes # (Manual) Monocytes # (Manual) Eosinophils # (Manual) Nucleated RBC % Basophils # (Manual) APTT Heparin Anti-Xa Level ABG pH POC ABG pO2 ABG pO2 ABG HCO3 29.8 H ABG O2 Saturation ABG Base Excess 4.8 H POC ABG pCO2 ABG Hemoglobin 11.2 L ABG Oxyhemoglobin ABG Glucose Oxyhemoglobin 93.8 L Sodium Potassium Chloride 97.8 L Carbon Dioxide BUN 26 H Creatinine Glucose 168 H POC Glucose Lactic Acid Calcium Phosphorus Magnesium AST ALT Lactate Dehydrogenase CK-MB (CK-2) C-Reactive Protein NT-Pro-B Natriuret Pep Total Protein Albumin Arterial Blood Glucose Urine WBC (Auto) 12/30/19 12/30/19 12/30/19 05:45 11:34 17:28 WBC RBC Hgb Hct MCHC RDW MCV MCH Lymph % (Auto) [place] % (Auto) [place] # Eos # Lymph # (Auto) [place] # (Auto) Eos # (Auto) Seg Neutrophils % Seg Neuts % (Manual) Baso # (Auto) Lymphocytes % (Manual) Monocytes % (Manual) Eosinophils % (Manual) Basophils % (Manual) Seg Neutrophils # Seg Neutrophils # Man Lymphocytes # (Manual) Monocytes # (Manual) Eosinophils # (Manual) Nucleated RBC % Basophils # (Manual) APTT Heparin Anti-Xa Level ABG pH POC ABG pO2 ABG pO2 ABG HCO3 ABG O2 Saturation ABG Base Excess POC ABG pCO2 ABG Hemoglobin ABG Oxyhemoglobin ABG Glucose Oxyhemoglobin Sodium Potassium Chloride Carbon Dioxide BUN Creatinine Glucose POC Glucose 163 H 180 H 150 H Lactic Acid Calcium Phosphorus Magnesium AST ALT Lactate Dehydrogenase CK-MB (CK-2) C-Reactive Protein NT-Pro-B Natriuret Pep Total Protein Albumin Arterial Blood Glucose Urine WBC (Auto) 12/30/19 12/31/19 12/31/19 23:43 04:55 05:07 WBC RBC Hgb Hct MCHC RDW MCV MCH Lymph % (Auto) [place] % (Auto) [place] # Eos # Lymph # (Auto) [place] # (Auto) Eos # (Auto) Seg Neutrophils % Seg Neuts % (Manual) Baso # (Auto) Lymphocytes % (Manual) Monocytes % (Manual) Eosinophils % (Manual) Basophils % (Manual) Seg Neutrophils # Seg Neutrophils # Man Lymphocytes # (Manual) Monocytes # (Manual) Eosinophils # (Manual) Nucleated RBC % Basophils # (Manual) APTT Heparin Anti-Xa Level ABG pH POC ABG pO2 ABG pO2 ABG HCO3 ABG O2 Saturation ABG Base Excess POC ABG pCO2 ABG Hemoglobin ABG Oxyhemoglobin ABG Glucose Oxyhemoglobin Sodium Potassium 5.6 H D Chloride Carbon Dioxide BUN 33 H Creatinine Glucose 131 H POC Glucose 142 H 134 H Lactic Acid Calcium Phosphorus Magnesium AST ALT Lactate Dehydrogenase CK-MB (CK-2) C-Reactive Protein NT-Pro-B Natriuret Pep Total Protein Albumin Arterial Blood Glucose Urine WBC (Auto) 12/31/19 12/31/19 12/31/19 11:30 17:19 17:36 WBC RBC Hgb Hct MCHC RDW MCV MCH Lymph % (Auto) [place] % (Auto) [place] # Eos # Lymph # (Auto) [place] # (Auto) Eos # (Auto) Seg Neutrophils % Seg Neuts % (Manual) Baso # (Auto) Lymphocytes % (Manual) Monocytes % (Manual) Eosinophils % (Manual) Basophils % (Manual) Seg Neutrophils # Seg Neutrophils # Man Lymphocytes # (Manual) Monocytes # (Manual) Eosinophils # (Manual) Nucleated RBC % Basophils # (Manual) APTT Heparin Anti-Xa Level ABG pH POC ABG pO2 ABG pO2 ABG HCO3 ABG O2 Saturation ABG Base Excess POC ABG pCO2 ABG Hemoglobin ABG Oxyhemoglobin ABG Glucose Oxyhemoglobin Sodium Potassium Chloride Carbon Dioxide BUN 35 H Creatinine Glucose 156 H POC Glucose 158 H 181 H Lactic Acid Calcium Phosphorus Magnesium AST ALT Lactate Dehydrogenase CK-MB (CK-2) C-Reactive Protein NT-Pro-B Natriuret Pep Total Protein Albumin Arterial Blood Glucose Urine WBC (Auto) 12/31/19 12/31/19 12/31/19 18:16 19:41 21:53 WBC RBC Hgb Hct MCHC RDW MCV MCH Lymph % (Auto) [place] % (Auto) [place] # Eos # Lymph # (Auto) [place] # (Auto) Eos # (Auto) Seg Neutrophils % Seg Neuts % (Manual) Baso # (Auto) Lymphocytes % (Manual) Monocytes % (Manual) Eosinophils % (Manual) Basophils % (Manual) Seg Neutrophils # Seg Neutrophils # Man Lymphocytes # (Manual) Monocytes # (Manual) Eosinophils # (Manual) Nucleated RBC % Basophils # (Manual) APTT Heparin Anti-Xa Level 0.20 L ABG pH POC ABG pO2 ABG pO2 ABG HCO3 ABG O2 Saturation ABG Base Excess POC ABG pCO2 ABG Hemoglobin ABG Oxyhemoglobin ABG Glucose Oxyhemoglobin Sodium Potassium Chloride Carbon Dioxide BUN 34 H Creatinine Glucose 169 H POC Glucose 141 H Lactic Acid Calcium Phosphorus Magnesium AST ALT Lactate Dehydrogenase CK-MB (CK-2) C-Reactive Protein NT-Pro-B Natriuret Pep Total Protein Albumin Arterial Blood Glucose Urine WBC (Auto) 12/31/19 01/01/20 01/01/20 23:51 05:17 10:40 WBC RBC Hgb Hct MCHC RDW MCV MCH Lymph % (Auto) [place] % (Auto) [place] # Eos # Lymph # (Auto) [place] # (Auto) Eos # (Auto) Seg Neutrophils % Seg Neuts % (Manual) Baso # (Auto) Lymphocytes % (Manual) Monocytes % (Manual) Eosinophils % (Manual) Basophils % (Manual) Seg Neutrophils # Seg Neutrophils # Man Lymphocytes # (Manual) Monocytes # (Manual) Eosinophils # (Manual) Nucleated RBC % Basophils # (Manual) APTT Heparin Anti-Xa Level ABG pH POC ABG pO2 ABG pO2 ABG HCO3 ABG O2 Saturation ABG Base Excess POC ABG pCO2 ABG Hemoglobin ABG Oxyhemoglobin ABG Glucose Oxyhemoglobin Sodium Potassium Chloride Carbon Dioxide BUN 31 H Creatinine 0.7 L Glucose 137 H POC Glucose 131 H 155 H Lactic Acid Calcium Phosphorus Magnesium AST 73 H ALT 97 H Lactate Dehydrogenase CK-MB (CK-2) C-Reactive Protein NT-Pro-B Natriuret Pep 3866 H Total Protein Albumin 2.8 L Arterial Blood Glucose Urine WBC (Auto) 01/01/20 01/01/20 01/01/20 12:26 15:33 17:53 WBC 14.3 H RBC 3.35 L Hgb 9.1 L Hct 28.8 L MCHC RDW 17.0 H MCV MCH 27 L Lymph % (Auto) 7.0 L [place] % (Auto) 7.6 H [place] # Eos # Lymph # (Auto) 1.0 L [place] # (Auto) 1.1 H Eos # (Auto) Seg Neutrophils % 83.3 H Seg Neuts % (Manual) Baso # (Auto) Lymphocytes % (Manual) Monocytes % (Manual) Eosinophils % (Manual) Basophils % (Manual) Seg Neutrophils # 12.0 H Seg Neutrophils # Man Lymphocytes # (Manual) Monocytes # (Manual) Eosinophils # (Manual) Nucleated RBC % Basophils # (Manual) APTT Heparin Anti-Xa Level ABG pH POC ABG pO2 ABG pO2 ABG HCO3 ABG O2 Saturation ABG Base Excess POC ABG pCO2 ABG Hemoglobin ABG Oxyhemoglobin ABG Glucose Oxyhemoglobin Sodium Potassium Chloride Carbon Dioxide BUN Creatinine Glucose POC Glucose 128 H 128 H Lactic Acid Calcium Phosphorus Magnesium AST ALT Lactate Dehydrogenase CK-MB (CK-2) C-Reactive Protein NT-Pro-B Natriuret Pep Total Protein Albumin Arterial Blood Glucose Urine WBC (Auto) 01/01/20 01/02/20 01/02/20 23:04 05:39 07:00 WBC RBC Hgb Hct MCHC RDW MCV MCH Lymph % (Auto) [place] % (Auto) [place] # Eos # Lymph # (Auto) [place] # (Auto) Eos # (Auto) Seg Neutrophils % Seg Neuts % (Manual) Baso # (Auto) Lymphocytes % (Manual) Monocytes % (Manual) Eosinophils % (Manual) Basophils % (Manual) Seg Neutrophils # Seg Neutrophils # Man Lymphocytes # (Manual) Monocytes # (Manual) Eosinophils # (Manual) Nucleated RBC % Basophils # (Manual) APTT Heparin Anti-Xa Level 0.13 L ABG pH POC ABG pO2 ABG pO2 ABG HCO3 ABG O2 Saturation ABG Base Excess POC ABG pCO2 ABG Hemoglobin ABG Oxyhemoglobin ABG Glucose Oxyhemoglobin Sodium Potassium Chloride Carbon Dioxide BUN Creatinine Glucose POC Glucose 120 H 169 H Lactic Acid Calcium Phosphorus Magnesium AST ALT Lactate Dehydrogenase CK-MB (CK-2) C-Reactive Protein NT-Pro-B Natriuret Pep Total Protein Albumin Arterial Blood Glucose Urine WBC (Auto) 01/02/20 01/02/20 01/02/20 12:15 14:06 17:58 WBC RBC Hgb Hct MCHC RDW MCV MCH Lymph % (Auto) [place] % (Auto) [place] # Eos # Lymph # (Auto) [place] # (Auto) Eos # (Auto) Seg Neutrophils % Seg Neuts % (Manual) Baso # (Auto) Lymphocytes % (Manual) Monocytes % (Manual) Eosinophils % (Manual) Basophils % (Manual) Seg Neutrophils # Seg Neutrophils # Man Lymphocytes # (Manual) Monocytes # (Manual) Eosinophils # (Manual) Nucleated RBC % Basophils # (Manual) APTT Heparin Anti-Xa Level < 0.10 L ABG pH POC ABG pO2 ABG pO2 ABG HCO3 ABG O2 Saturation ABG Base Excess POC ABG pCO2 ABG Hemoglobin ABG Oxyhemoglobin ABG Glucose Oxyhemoglobin Sodium Potassium Chloride Carbon Dioxide BUN Creatinine Glucose POC Glucose 190 H 198 H Lactic Acid Calcium Phosphorus Magnesium AST ALT Lactate Dehydrogenase CK-MB (CK-2) C-Reactive Protein NT-Pro-B Natriuret Pep Total Protein Albumin Arterial Blood Glucose Urine WBC (Auto) 01/02/20 01/02/20 01/03/20 21:43 23:33 05:42 WBC RBC Hgb Hct MCHC RDW MCV MCH Lymph % (Auto) [place] % (Auto) [place] # Eos # Lymph # (Auto) [place] # (Auto) Eos # (Auto) Seg Neutrophils % Seg Neuts % (Manual) Baso # (Auto) Lymphocytes % (Manual) Monocytes % (Manual) Eosinophils % (Manual) Basophils % (Manual) Seg Neutrophils # Seg Neutrophils # Man Lymphocytes # (Manual) Monocytes # (Manual) Eosinophils # (Manual) Nucleated RBC % Basophils # (Manual) APTT Heparin Anti-Xa Level 0.10 L ABG pH POC ABG pO2 ABG pO2 ABG HCO3 ABG O2 Saturation ABG Base Excess POC ABG pCO2 ABG Hemoglobin ABG Oxyhemoglobin ABG Glucose Oxyhemoglobin Sodium Potassium Chloride Carbon Dioxide BUN Creatinine Glucose POC Glucose 180 H 163 H Lactic Acid Calcium Phosphorus Magnesium AST ALT Lactate Dehydrogenase CK-MB (CK-2) C-Reactive Protein NT-Pro-B Natriuret Pep Total Protein Albumin Arterial Blood Glucose Urine WBC (Auto) 01/03/20 01/03/20 01/03/20 06:50 07:25 07:45 WBC 12.1 H RBC 3.35 L Hgb 9.0 L Hct 28.9 L MCHC 31 L RDW 16.6 H MCV MCH 27 L Lymph % (Auto) 13.0 L [place] % (Auto) 8.6 H [place] # Eos # Lymph # (Auto) [place] # (Auto) 1.0 H Eos # (Auto) Seg Neutrophils % 75.9 H Seg Neuts % (Manual) Baso # (Auto) Lymphocytes % (Manual) Monocytes % (Manual) Eosinophils % (Manual) Basophils % (Manual) Seg Neutrophils # 9.2 H Seg Neutrophils # Man Lymphocytes # (Manual) Monocytes # (Manual) Eosinophils # (Manual) Nucleated RBC % Basophils # (Manual) APTT Heparin Anti-Xa Level 0.29 L ABG pH POC ABG pO2 ABG pO2 ABG HCO3 ABG O2 Saturation ABG Base Excess POC ABG pCO2 ABG Hemoglobin ABG Oxyhemoglobin ABG Glucose Oxyhemoglobin Sodium Potassium 3.3 L D Chloride Carbon Dioxide 35 H D BUN 23 H Creatinine 0.6 L Glucose 149 H POC Glucose Lactic Acid Calcium Phosphorus Magnesium AST ALT 88 H Lactate Dehydrogenase CK-MB (CK-2) C-Reactive Protein NT-Pro-B Natriuret Pep Total Protein 6.2 L Albumin 2.9 L Arterial Blood Glucose Urine WBC (Auto) 01/03/20 01/03/20 01/03/20 12:05 17:42 18:30 WBC RBC Hgb Hct MCHC RDW MCV MCH Lymph % (Auto) [place] % (Auto) [place] # Eos # Lymph # (Auto) [place] # (Auto) Eos # (Auto) Seg Neutrophils % Seg Neuts % (Manual) Baso # (Auto) Lymphocytes % (Manual) Monocytes % (Manual) Eosinophils % (Manual) Basophils % (Manual) Seg Neutrophils # Seg Neutrophils # Man Lymphocytes # (Manual) Monocytes # (Manual) Eosinophils # (Manual) Nucleated RBC % Basophils # (Manual) APTT Heparin Anti-Xa Level ABG pH POC ABG pO2 ABG pO2 70.7 L ABG HCO3 36.1 H ABG O2 Saturation 94.4 L ABG Base Excess 10.0 H POC ABG pCO2 ABG Hemoglobin 9.7 L ABG Oxyhemoglobin ABG Glucose Oxyhemoglobin 91.8 L Sodium Potassium Chloride Carbon Dioxide BUN Creatinine Glucose POC Glucose 128 H 132 H Lactic Acid Calcium Phosphorus Magnesium AST ALT Lactate Dehydrogenase CK-MB (CK-2) C-Reactive Protein NT-Pro-B Natriuret Pep Total Protein Albumin Arterial Blood Glucose Urine WBC (Auto) 01/04/20 01/04/20 01/04/20 00:10 04:26 05:23 WBC RBC Hgb Hct MCHC RDW MCV MCH Lymph % (Auto) [place] % (Auto) [place] # Eos # Lymph # (Auto) [place] # (Auto) Eos # (Auto) Seg Neutrophils % Seg Neuts % (Manual) Baso # (Auto) Lymphocytes % (Manual) Monocytes % (Manual) Eosinophils % (Manual) Basophils % (Manual) Seg Neutrophils # Seg Neutrophils # Man Lymphocytes # (Manual) Monocytes # (Manual) Eosinophils # (Manual) Nucleated RBC % Basophils # (Manual) APTT Heparin Anti-Xa Level 0.16 L ABG pH POC ABG pO2 ABG pO2 ABG HCO3 ABG O2 Saturation ABG Base Excess POC ABG pCO2 ABG Hemoglobin ABG Oxyhemoglobin ABG Glucose Oxyhemoglobin Sodium Potassium Chloride Carbon Dioxide BUN Creatinine Glucose POC Glucose 121 H 119 H Lactic Acid Calcium Phosphorus Magnesium AST ALT Lactate Dehydrogenase CK-MB (CK-2) C-Reactive Protein NT-Pro-B Natriuret Pep Total Protein Albumin Arterial Blood Glucose Urine WBC (Auto) 01/04/20 01/04/20 01/04/20 09:50 09:50 12:18 WBC 15.4 H RBC 3.30 L Hgb 8.7 L Hct 28.2 L MCHC 31 L RDW 17.0 H MCV MCH 26 L Lymph % (Auto) [place] % (Auto) 7.6 H [place] # Eos # Lymph # (Auto) [place] # (Auto) 1.2 H Eos # (Auto) Seg Neutrophils % 75.4 H Seg Neuts % (Manual) Baso # (Auto) Lymphocytes % (Manual) Monocytes % (Manual) Eosinophils % (Manual) Basophils % (Manual) Seg Neutrophils # 11.6 H Seg Neutrophils # Man Lymphocytes # (Manual) Monocytes # (Manual) Eosinophils # (Manual) Nucleated RBC % Basophils # (Manual) APTT Heparin Anti-Xa Level ABG pH POC ABG pO2 ABG pO2 ABG HCO3 ABG O2 Saturation ABG Base Excess POC ABG pCO2 ABG Hemoglobin ABG Oxyhemoglobin ABG Glucose Oxyhemoglobin Sodium 148 H Potassium 3.5 L Chloride Carbon Dioxide 32 H BUN Creatinine 0.6 L Glucose 114 H POC Glucose 111 H Lactic Acid Calcium Phosphorus Magnesium AST ALT 59 H Lactate Dehydrogenase CK-MB (CK-2) C-Reactive Protein NT-Pro-B Natriuret Pep Total Protein Albumin 2.6 L Arterial Blood Glucose Urine WBC (Auto) 01/05/20 01/05/20 01/05/20 04:05 04:05 05:19 WBC 11.7 H RBC 3.50 L Hgb 9.3 L Hct 29.9 L MCHC 31 L RDW 16.6 H MCV MCH 27 L Lymph % (Auto) 13.1 L [place] % (Auto) 9.7 H [place] # Eos # Lymph # (Auto) [place] # (Auto) 1.1 H Eos # (Auto) Seg Neutrophils % 74.0 H Seg Neuts % (Manual) Baso # (Auto) Lymphocytes % (Manual) Monocytes % (Manual) Eosinophils % (Manual) Basophils % (Manual) Seg Neutrophils # 8.6 H Seg Neutrophils # Man Lymphocytes # (Manual) Monocytes # (Manual) Eosinophils # (Manual) Nucleated RBC % Basophils # (Manual) APTT Heparin Anti-Xa Level ABG pH POC ABG pO2 ABG pO2 ABG HCO3 ABG O2 Saturation ABG Base Excess POC ABG pCO2 ABG Hemoglobin ABG Oxyhemoglobin ABG Glucose Oxyhemoglobin Sodium 151 H Potassium Chloride Carbon Dioxide 34 H BUN Creatinine 0.7 L Glucose POC Glucose 112 H Lactic Acid Calcium Phosphorus Magnesium AST ALT 59 H Lactate Dehydrogenase CK-MB (CK-2) C-Reactive Protein NT-Pro-B Natriuret Pep Total Protein 5.8 L Albumin 2.6 L Arterial Blood Glucose Urine WBC (Auto) 01/05/20 01/06/20 01/06/20 16:04 00:23 04:44 WBC RBC 3.36 L Hgb 8.9 L Hct 28.7 L MCHC 31 L RDW 16.9 H MCV MCH 26 L Lymph % (Auto) [place] % (Auto) 9.4 H [place] # Eos # Lymph # (Auto) [place] # (Auto) Eos # (Auto) Seg Neutrophils % Seg Neuts % (Manual) Baso # (Auto) Lymphocytes % (Manual) Monocytes % (Manual) Eosinophils % (Manual) Basophils % (Manual) Seg Neutrophils # Seg Neutrophils # Man Lymphocytes # (Manual) Monocytes # (Manual) Eosinophils # (Manual) Nucleated RBC % Basophils # (Manual) APTT Heparin Anti-Xa Level ABG pH POC ABG pO2 ABG pO2 ABG HCO3 ABG O2 Saturation ABG Base Excess POC ABG pCO2 ABG Hemoglobin ABG Oxyhemoglobin ABG Glucose Oxyhemoglobin Sodium 151 H Potassium 3.2 L Chloride Carbon Dioxide 34 H BUN Creatinine 0.6 L Glucose POC Glucose 107 H Lactic Acid Calcium Phosphorus Magnesium AST ALT Lactate Dehydrogenase CK-MB (CK-2) C-Reactive Protein NT-Pro-B Natriuret Pep Total Protein Albumin Arterial Blood Glucose Urine WBC (Auto) 01/06/20 01/06/20 01/06/20 04:44 05:33 12:04 WBC RBC Hgb Hct MCHC RDW MCV MCH Lymph % (Auto) [place] % (Auto) [place] # Eos # Lymph # (Auto) [place] # (Auto) Eos # (Auto) Seg Neutrophils % Seg Neuts % (Manual) Baso # (Auto) Lymphocytes % (Manual) Monocytes % (Manual) Eosinophils % (Manual) Basophils % (Manual) Seg Neutrophils # Seg Neutrophils # Man Lymphocytes # (Manual) Monocytes # (Manual) Eosinophils # (Manual) Nucleated RBC % Basophils # (Manual) APTT Heparin Anti-Xa Level ABG pH POC ABG pO2 ABG pO2 ABG HCO3 ABG O2 Saturation ABG Base Excess POC ABG pCO2 ABG Hemoglobin ABG Oxyhemoglobin ABG Glucose Oxyhemoglobin Sodium 151 H Potassium 3.4 L Chloride Carbon Dioxide 33 H BUN Creatinine 0.6 L Glucose 118 H POC Glucose 118 H 123 H Lactic Acid Calcium Phosphorus Magnesium AST ALT Lactate Dehydrogenase CK-MB (CK-2) C-Reactive Protein NT-Pro-B Natriuret Pep Total Protein 6.2 L Albumin 2.6 L Arterial Blood Glucose Urine WBC (Auto) 01/06/20 01/07/20 01/07/20 17:54 00:06 04:10 WBC RBC 3.42 L Hgb 8.9 L Hct 29.0 L MCHC 31 L RDW 17.1 H MCV MCH 26 L Lymph % (Auto) [place] % (Auto) 8.4 H [place] # Eos # Lymph # (Auto) [place] # (Auto) Eos # (Auto) Seg Neutrophils % Seg Neuts % (Manual) Baso # (Auto) Lymphocytes % (Manual) Monocytes % (Manual) Eosinophils % (Manual) Basophils % (Manual) Seg Neutrophils # Seg Neutrophils # Man Lymphocytes # (Manual) Monocytes # (Manual) Eosinophils # (Manual) Nucleated RBC % Basophils # (Manual) APTT Heparin Anti-Xa Level ABG pH POC ABG pO2 ABG pO2 ABG HCO3 ABG O2 Saturation ABG Base Excess POC ABG pCO2 ABG Hemoglobin ABG Oxyhemoglobin ABG Glucose Oxyhemoglobin Sodium Potassium Chloride Carbon Dioxide BUN Creatinine Glucose POC Glucose 112 H 126 H Lactic Acid Calcium Phosphorus Magnesium AST ALT Lactate Dehydrogenase CK-MB (CK-2) C-Reactive Protein NT-Pro-B Natriuret Pep Total Protein Albumin Arterial Blood Glucose Urine WBC (Auto) 01/07/20 01/07/20 01/07/20 04:10 05:59 12:27 WBC RBC Hgb Hct MCHC RDW MCV MCH Lymph % (Auto) [place] % (Auto) [place] # Eos # Lymph # (Auto) [place] # (Auto) Eos # (Auto) Seg Neutrophils % Seg Neuts % (Manual) Baso # (Auto) Lymphocytes % (Manual) Monocytes % (Manual) Eosinophils % (Manual) Basophils % (Manual) Seg Neutrophils # Seg Neutrophils # Man Lymphocytes # (Manual) Monocytes # (Manual) Eosinophils # (Manual) Nucleated RBC % Basophils # (Manual) APTT Heparin Anti-Xa Level ABG pH POC ABG pO2 ABG pO2 ABG HCO3 ABG O2 Saturation ABG Base Excess POC ABG pCO2 ABG Hemoglobin ABG Oxyhemoglobin ABG Glucose Oxyhemoglobin Sodium 153 H Potassium 3.5 L Chloride Carbon Dioxide 34 H BUN Creatinine 0.6 L Glucose 121 H POC Glucose 121 H 126 H Lactic Acid Calcium Phosphorus Magnesium AST ALT Lactate Dehydrogenase CK-MB (CK-2) C-Reactive Protein NT-Pro-B Natriuret Pep Total Protein 5.9 L Albumin 2.4 L Arterial Blood Glucose Urine WBC (Auto) 01/07/20 01/08/20 01/08/20 18:12 00:03 05:41 WBC RBC Hgb Hct MCHC RDW MCV MCH Lymph % (Auto) [place] % (Auto) [place] # Eos # Lymph # (Auto) [place] # (Auto) Eos # (Auto) Seg Neutrophils % Seg Neuts % (Manual) Baso # (Auto) Lymphocytes % (Manual) Monocytes % (Manual) Eosinophils % (Manual) Basophils % (Manual) Seg Neutrophils # Seg Neutrophils # Man Lymphocytes # (Manual) Monocytes # (Manual) Eosinophils # (Manual) Nucleated RBC % Basophils # (Manual) APTT Heparin Anti-Xa Level ABG pH POC ABG pO2 ABG pO2 ABG HCO3 ABG O2 Saturation ABG Base Excess POC ABG pCO2 ABG Hemoglobin ABG Oxyhemoglobin ABG Glucose Oxyhemoglobin Sodium Potassium Chloride Carbon Dioxide BUN Creatinine Glucose POC Glucose 124 H 130 H 138 H Lactic Acid Calcium Phosphorus Magnesium AST ALT Lactate Dehydrogenase CK-MB (CK-2) C-Reactive Protein NT-Pro-B Natriuret Pep Total Protein Albumin Arterial Blood Glucose Urine WBC (Auto) 01/08/20 01/08/20 01/08/20 09:28 11:42 18:21 WBC RBC Hgb Hct MCHC RDW MCV MCH Lymph % (Auto) [place] % (Auto) [place] # Eos # Lymph # (Auto) [place] # (Auto) Eos # (Auto) Seg Neutrophils % Seg Neuts % (Manual) Baso # (Auto) Lymphocytes % (Manual) Monocytes % (Manual) Eosinophils % (Manual) Basophils % (Manual) Seg Neutrophils # Seg Neutrophils # Man Lymphocytes # (Manual) Monocytes # (Manual) Eosinophils # (Manual) Nucleated RBC % Basophils # (Manual) APTT Heparin Anti-Xa Level ABG pH POC ABG pO2 ABG pO2 ABG HCO3 ABG O2 Saturation ABG Base Excess POC ABG pCO2 ABG Hemoglobin ABG Oxyhemoglobin ABG Glucose Oxyhemoglobin Sodium Potassium Chloride Carbon Dioxide BUN Creatinine Glucose POC Glucose 181 H 150 H 129 H Lactic Acid Calcium Phosphorus Magnesium AST ALT Lactate Dehydrogenase CK-MB (CK-2) C-Reactive Protein NT-Pro-B Natriuret Pep Total Protein Albumin Arterial Blood Glucose Urine WBC (Auto) 01/08/20 01/08/20 01/09/20 19:25 23:55 04:11 WBC RBC 3.43 L Hgb 8.9 L Hct 28.7 L MCHC 31 L RDW 17.6 H MCV MCH 26 L Lymph % (Auto) [place] % (Auto) 8.6 H [place] # Eos # Lymph # (Auto) [place] # (Auto) Eos # (Auto) Seg Neutrophils % Seg Neuts % (Manual) Baso # (Auto) Lymphocytes % (Manual) Monocytes % (Manual) Eosinophils % (Manual) Basophils % (Manual) Seg Neutrophils # Seg Neutrophils # Man Lymphocytes # (Manual) Monocytes # (Manual) Eosinophils # (Manual) Nucleated RBC % Basophils # (Manual) APTT Heparin Anti-Xa Level ABG pH POC ABG pO2 ABG pO2 ABG HCO3 ABG O2 Saturation ABG Base Excess POC ABG pCO2 ABG Hemoglobin ABG Oxyhemoglobin ABG Glucose Oxyhemoglobin Sodium Potassium Chloride Carbon Dioxide BUN Creatinine 0.7 L Glucose 117 H POC Glucose 132 H Lactic Acid Calcium Phosphorus Magnesium AST ALT Lactate Dehydrogenase CK-MB (CK-2) C-Reactive Protein NT-Pro-B Natriuret Pep Total Protein Albumin Arterial Blood Glucose Urine WBC (Auto) 01/09/20 01/09/20 01/09/20 04:11 05:38 22:58 WBC RBC Hgb Hct MCHC RDW MCV MCH Lymph % (Auto) [place] % (Auto) [place] # Eos # Lymph # (Auto) [place] # (Auto) Eos # (Auto) Seg Neutrophils % Seg Neuts % (Manual) Baso # (Auto) Lymphocytes % (Manual) Monocytes % (Manual) Eosinophils % (Manual) Basophils % (Manual) Seg Neutrophils # Seg Neutrophils # Man Lymphocytes # (Manual) Monocytes # (Manual) Eosinophils # (Manual) Nucleated RBC % Basophils # (Manual) APTT Heparin Anti-Xa Level ABG pH POC ABG pO2 ABG pO2 ABG HCO3 ABG O2 Saturation ABG Base Excess POC ABG pCO2 ABG Hemoglobin ABG Oxyhemoglobin ABG Glucose Oxyhemoglobin Sodium 147 H Potassium 3.3 L D Chloride Carbon Dioxide 32 H BUN Creatinine 0.6 L Glucose 106 H POC Glucose 107 H 113 H Lactic Acid Calcium Phosphorus Magnesium AST ALT Lactate Dehydrogenase CK-MB (CK-2) C-Reactive Protein NT-Pro-B Natriuret Pep Total Protein Albumin Arterial Blood Glucose Urine WBC (Auto) 01/10/20 01/10/20 01/10/20 04:05 11:36 17:54 WBC RBC Hgb Hct MCHC RDW MCV MCH Lymph % (Auto) [place] % (Auto) [place] # Eos # Lymph # (Auto) [place] # (Auto) Eos # (Auto) Seg Neutrophils % Seg Neuts % (Manual) Baso # (Auto) Lymphocytes % (Manual) Monocytes % (Manual) Eosinophils % (Manual) Basophils % (Manual) Seg Neutrophils # Seg Neutrophils # Man Lymphocytes # (Manual) Monocytes # (Manual) Eosinophils # (Manual) Nucleated RBC % Basophils # (Manual) APTT Heparin Anti-Xa Level ABG pH POC ABG pO2 ABG pO2 ABG HCO3 ABG O2 Saturation ABG Base Excess POC ABG pCO2 ABG Hemoglobin ABG Oxyhemoglobin ABG Glucose Oxyhemoglobin Sodium Potassium Chloride Carbon Dioxide BUN Creatinine 0.7 L Glucose 110 H POC Glucose 129 H 117 H Lactic Acid Calcium Phosphorus Magnesium AST ALT Lactate Dehydrogenase CK-MB (CK-2) C-Reactive Protein NT-Pro-B Natriuret Pep Total Protein Albumin Arterial Blood Glucose Urine WBC (Auto) 01/10/20 01/11/20 01/11/20 23:52 03:19 12:09 WBC RBC Hgb Hct MCHC RDW MCV MCH Lymph % (Auto) [place] % (Auto) [place] # Eos # Lymph # (Auto) [place] # (Auto) Eos # (Auto) Seg Neutrophils % Seg Neuts % (Manual) Baso # (Auto) Lymphocytes % (Manual) Monocytes % (Manual) Eosinophils % (Manual) Basophils % (Manual) Seg Neutrophils # Seg Neutrophils # Man Lymphocytes # (Manual) Monocytes # (Manual) Eosinophils # (Manual) Nucleated RBC % Basophils # (Manual) APTT Heparin Anti-Xa Level ABG pH POC ABG pO2 ABG pO2 ABG HCO3 ABG O2 Saturation ABG Base Excess POC ABG pCO2 ABG Hemoglobin ABG Oxyhemoglobin ABG Glucose Oxyhemoglobin Sodium Potassium Chloride Carbon Dioxide BUN Creatinine Glucose POC Glucose 117 H 136 H 115 H Lactic Acid Calcium Phosphorus Magnesium AST ALT Lactate Dehydrogenase CK-MB (CK-2) C-Reactive Protein NT-Pro-B Natriuret Pep Total Protein Albumin Arterial Blood Glucose Urine WBC (Auto) 01/11/20 01/11/20 01/12/20 18:27 23:28 00:23 WBC RBC Hgb 9.8 L Hct 31.6 L MCHC 31 L RDW 17.8 H MCV 83 L MCH 26 L Lymph % (Auto) [place] % (Auto) 8.0 H [place] # Eos # Lymph # (Auto) [place] # (Auto) Eos # (Auto) Seg Neutrophils % Seg Neuts % (Manual) Baso # (Auto) Lymphocytes % (Manual) Monocytes % (Manual) Eosinophils % (Manual) Basophils % (Manual) Seg Neutrophils # Seg Neutrophils # Man Lymphocytes # (Manual) Monocytes # (Manual) Eosinophils # (Manual) Nucleated RBC % Basophils # (Manual) APTT Heparin Anti-Xa Level ABG pH POC ABG pO2 ABG pO2 ABG HCO3 ABG O2 Saturation ABG Base Excess POC ABG pCO2 ABG Hemoglobin ABG Oxyhemoglobin ABG Glucose Oxyhemoglobin Sodium Potassium Chloride Carbon Dioxide BUN Creatinine Glucose POC Glucose 118 H 122 H Lactic Acid Calcium Phosphorus Magnesium AST ALT Lactate Dehydrogenase CK-MB (CK-2) C-Reactive Protein NT-Pro-B Natriuret Pep Total Protein Albumin Arterial Blood Glucose Urine WBC (Auto) 01/12/20 01/12/20 01/12/20 00:23 04:18 04:18 WBC RBC Hgb 9.6 L Hct 30.9 L MCHC 31 L RDW 17.3 H MCV 81 L MCH 25 L Lymph % (Auto) [place] % (Auto) [place] # Eos # Lymph # (Auto) [place] # (Auto) Eos # (Auto) Seg Neutrophils % Seg Neuts % (Manual) Baso # (Auto) Lymphocytes % (Manual) Monocytes % (Manual) Eosinophils % (Manual) Basophils % (Manual) Seg Neutrophils # Seg Neutrophils # Man Lymphocytes # (Manual) Monocytes # (Manual) Eosinophils # (Manual) Nucleated RBC % Basophils # (Manual) APTT Heparin Anti-Xa Level ABG pH POC ABG pO2 ABG pO2 ABG HCO3 ABG O2 Saturation ABG Base Excess POC ABG pCO2 ABG Hemoglobin ABG Oxyhemoglobin ABG Glucose Oxyhemoglobin Sodium Potassium Chloride Carbon Dioxide BUN Creatinine 0.7 L 0.7 L Glucose 111 H 108 H POC Glucose Lactic Acid Calcium Phosphorus Magnesium AST ALT Lactate Dehydrogenase CK-MB (CK-2) C-Reactive Protein NT-Pro-B Natriuret Pep Total Protein Albumin 2.6 L Arterial Blood Glucose Urine WBC (Auto) 01/12/20 01/12/20 01/12/20 06:03 12:27 13:58 WBC RBC Hgb Hct MCHC RDW MCV MCH Lymph % (Auto) [place] % (Auto) [place] # Eos # Lymph # (Auto) [place] # (Auto) Eos # (Auto) Seg Neutrophils % Seg Neuts % (Manual) Baso # (Auto) Lymphocytes % (Manual) Monocytes % (Manual) Eosinophils % (Manual) Basophils % (Manual) Seg Neutrophils # Seg Neutrophils # Man Lymphocytes # (Manual) Monocytes # (Manual) Eosinophils # (Manual) Nucleated RBC % Basophils # (Manual) APTT Heparin Anti-Xa Level ABG pH 7.453 H POC ABG pO2 76.6 L ABG pO2 ABG HCO3 ABG O2 Saturation ABG Base Excess POC ABG pCO2 ABG Hemoglobin 10.3 L ABG Oxyhemoglobin ABG Glucose 99 H Oxyhemoglobin Sodium Potassium Chloride Carbon Dioxide BUN Creatinine Glucose POC Glucose 128 H 121 H Lactic Acid Calcium Phosphorus Magnesium AST ALT Lactate Dehydrogenase CK-MB (CK-2) C-Reactive Protein NT-Pro-B Natriuret Pep Total Protein Albumin Arterial Blood Glucose 99 H Urine WBC (Auto) 01/12/20 01/13/20 01/13/20 18:24 12:01 17:46 WBC RBC Hgb Hct MCHC RDW MCV MCH Lymph % (Auto) [place] % (Auto) [place] # Eos # Lymph # (Auto) [place] # (Auto) Eos # (Auto) Seg Neutrophils % Seg Neuts % (Manual) Baso # (Auto) Lymphocytes % (Manual) Monocytes % (Manual) Eosinophils % (Manual) Basophils % (Manual) Seg Neutrophils # Seg Neutrophils # Man Lymphocytes # (Manual) Monocytes # (Manual) Eosinophils # (Manual) Nucleated RBC % Basophils # (Manual) APTT Heparin Anti-Xa Level ABG pH POC ABG pO2 ABG pO2 ABG HCO3 ABG O2 Saturation ABG Base Excess POC ABG pCO2 ABG Hemoglobin ABG Oxyhemoglobin ABG Glucose Oxyhemoglobin Sodium Potassium Chloride Carbon Dioxide BUN Creatinine Glucose POC Glucose 119 H 107 H 124 H Lactic Acid Calcium Phosphorus Magnesium AST ALT Lactate Dehydrogenase CK-MB (CK-2) C-Reactive Protein NT-Pro-B Natriuret Pep Total Protein Albumin Arterial Blood Glucose Urine WBC (Auto) 01/13/20 01/14/20 01/14/20 20:40 00:10 05:33 WBC RBC Hgb Hct MCHC RDW MCV MCH Lymph % (Auto) [place] % (Auto) [place] # Eos # Lymph # (Auto) [place] # (Auto) Eos # (Auto) Seg Neutrophils % Seg Neuts % (Manual) Baso # (Auto) Lymphocytes % (Manual) Monocytes % (Manual) Eosinophils % (Manual) Basophils % (Manual) Seg Neutrophils # Seg Neutrophils # Man Lymphocytes # (Manual) Monocytes # (Manual) Eosinophils # (Manual) Nucleated RBC % Basophils # (Manual) APTT Heparin Anti-Xa Level ABG pH POC ABG pO2 ABG pO2 65.3 L ABG HCO3 31.8 H ABG O2 Saturation 93.5 L ABG Base Excess 6.7 H POC ABG pCO2 ABG Hemoglobin 13.3 L ABG Oxyhemoglobin ABG Glucose Oxyhemoglobin 90.9 L Sodium Potassium Chloride Carbon Dioxide BUN Creatinine Glucose POC Glucose 111 H 111 H Lactic Acid Calcium Phosphorus Magnesium AST ALT Lactate Dehydrogenase CK-MB (CK-2) C-Reactive Protein NT-Pro-B Natriuret Pep Total Protein Albumin Arterial Blood Glucose Urine WBC (Auto) 01/14/20 01/14/20 01/14/20 12:10 16:14 16:14 WBC RBC Hgb 10.6 L Hct 34.2 L MCHC 31 L RDW 18.3 H MCV 83 L MCH 26 L Lymph % (Auto) [place] % (Auto) 7.4 H [place] # Eos # Lymph # (Auto) [place] # (Auto) Eos # (Auto) Seg Neutrophils % 71.9 H Seg Neuts % (Manual) Baso # (Auto) Lymphocytes % (Manual) Monocytes % (Manual) Eosinophils % (Manual) Basophils % (Manual) Seg Neutrophils # Seg Neutrophils # Man Lymphocytes # (Manual) Monocytes # (Manual) Eosinophils # (Manual) Nucleated RBC % Basophils # (Manual) APTT Heparin Anti-Xa Level ABG pH POC ABG pO2 ABG pO2 ABG HCO3 ABG O2 Saturation ABG Base Excess POC ABG pCO2 ABG Hemoglobin ABG Oxyhemoglobin ABG Glucose Oxyhemoglobin Sodium Potassium Chloride Carbon Dioxide 31 H BUN Creatinine 0.6 L Glucose 131 H POC Glucose 139 H Lactic Acid Calcium Phosphorus Magnesium AST ALT Lactate Dehydrogenase CK-MB (CK-2) C-Reactive Protein NT-Pro-B Natriuret Pep Total Protein Albumin Arterial Blood Glucose Urine WBC (Auto) 01/14/20 01/15/20 01/15/20 18:05 00:52 05:35 WBC RBC Hgb Hct MCHC RDW MCV MCH Lymph % (Auto) [place] % (Auto) [place] # Eos # Lymph # (Auto) [place] # (Auto) Eos # (Auto) Seg Neutrophils % Seg Neuts % (Manual) Baso # (Auto) Lymphocytes % (Manual) Monocytes % (Manual) Eosinophils % (Manual) Basophils % (Manual) Seg Neutrophils # Seg Neutrophils # Man Lymphocytes # (Manual) Monocytes # (Manual) Eosinophils # (Manual) Nucleated RBC % Basophils # (Manual) APTT Heparin Anti-Xa Level ABG pH POC ABG pO2 ABG pO2 ABG HCO3 ABG O2 Saturation ABG Base Excess POC ABG pCO2 ABG Hemoglobin ABG Oxyhemoglobin ABG Glucose Oxyhemoglobin Sodium Potassium Chloride Carbon Dioxide BUN Creatinine Glucose POC Glucose 147 H 140 H 159 H Lactic Acid Calcium Phosphorus Magnesium AST ALT Lactate Dehydrogenase CK-MB (CK-2) C-Reactive Protein NT-Pro-B Natriuret Pep Total Protein Albumin Arterial Blood Glucose Urine WBC (Auto) 01/15/20 01/15/20 01/16/20 12:52 17:43 00:32 WBC RBC Hgb Hct MCHC RDW MCV MCH Lymph % (Auto) [place] % (Auto) [place] # Eos # Lymph # (Auto) [place] # (Auto) Eos # (Auto) Seg Neutrophils % Seg Neuts % (Manual) Baso # (Auto) Lymphocytes % (Manual) Monocytes % (Manual) Eosinophils % (Manual) Basophils % (Manual) Seg Neutrophils # Seg Neutrophils # Man Lymphocytes # (Manual) Monocytes # (Manual) Eosinophils # (Manual) Nucleated RBC % Basophils # (Manual) APTT Heparin Anti-Xa Level ABG pH POC ABG pO2 ABG pO2 ABG HCO3 ABG O2 Saturation ABG Base Excess POC ABG pCO2 ABG Hemoglobin ABG Oxyhemoglobin ABG Glucose Oxyhemoglobin Sodium Potassium Chloride Carbon Dioxide BUN Creatinine Glucose POC Glucose 164 H 167 H 153 H Lactic Acid Calcium Phosphorus Magnesium AST ALT Lactate Dehydrogenase CK-MB (CK-2) C-Reactive Protein NT-Pro-B Natriuret Pep Total Protein Albumin Arterial Blood Glucose Urine WBC (Auto) 01/16/20 01/16/20 05:46 11:48 WBC RBC Hgb Hct MCHC RDW MCV MCH Lymph % (Auto) [place] % (Auto) [place] # Eos # Lymph # (Auto) [place] # (Auto) Eos # (Auto) Seg Neutrophils % Seg Neuts % (Manual) Baso # (Auto) Lymphocytes % (Manual) Monocytes % (Manual) Eosinophils % (Manual) Basophils % (Manual) Seg Neutrophils # Seg Neutrophils # Man Lymphocytes # (Manual) Monocytes # (Manual) Eosinophils # (Manual) Nucleated RBC % Basophils # (Manual) APTT Heparin Anti-Xa Level ABG pH POC ABG pO2 ABG pO2 ABG HCO3 ABG O2 Saturation ABG Base Excess POC ABG pCO2 ABG Hemoglobin ABG Oxyhemoglobin ABG Glucose Oxyhemoglobin Sodium Potassium Chloride Carbon Dioxide BUN Creatinine Glucose POC Glucose 163 H 155 H Lactic Acid Calcium Phosphorus Magnesium AST ALT Lactate Dehydrogenase CK-MB (CK-2) C-Reactive Protein NT-Pro-B Natriuret Pep Total Protein Albumin Arterial Blood Glucose Urine WBC (Auto) Chest x-ray: other (none today) Allied health notes reviewed: nursing
--- NOTE | 2020-01-16 12:52 | Progress Note ---
Assessment and Plan - Patient Problems (1) Paroxysmal atrial fibrillation Current Visit: Yes Status: Acute Plan to address problem: Continue conservative cardiac medical management as previously outlined. Subjective Date of service: 01/16/20 Principal diagnosis: Ac hypoxemic resp failure; Pneumonia; PUI COVID-19; CHF; COPD; HTN Interval history: No new cardiac complaints. On cardiac monitor, the patient is sinus rhythm at 95. Objective Vital Signs Temp Pulse Pulse Resp Resp BP Pulse Ox 01/16/20 12:00 98.3 F 97 H 97 H 21 110/79 94 01/16/20 11:45 98 H 20 122/86 91 01/16/20 11:40 96 H 122/86 94 01/16/20 11:31 101 H 20 122/86 99 01/16/20 11:15 98 H 19 122/86 97 01/16/20 11:00 106 H 19 122/86 97 01/16/20 10:45 109 H 20 140/87 96 01/16/20 10:31 110 H 18 140/87 96 01/16/20 10:15 98 H 18 140/87 97 01/16/20 10:00 102 H 19 123/80 96 01/16/20 09:45 112 H 24 140/87 97 01/16/20 09:31 111 H 25 H 133/106 97 01/16/20 09:15 112 H 17 133/106 94 01/16/20 09:01 113 H 22 133/106 94 01/16/20 08:45 117 H 23 123/90 94 01/16/20 08:31 113 H 40 H 123/90 95 01/16/20 08:15 108 H 30 H 123/90 97 01/16/20 08:02 105 H 123/90 01/16/20 08:01 25 H 01/16/20 08:00 98.4 F 104 H 99 H 23 25 H 123/90 97 01/16/20 07:50 99 01/16/20 07:47 01/16/20 07:45 96 H 19 120/85 95 01/16/20 07:40 96 H 120/85 94 01/16/20 07:31 101 H 23 120/85 96 01/16/20 07:15 99 H 26 H 95 01/16/20 07:01 100 H 19 94 01/16/20 06:45 97 H 19 93 01/16/20 06:31 101 H 18 93 01/16/20 06:15 99 H 22 92 01/16/20 06:01 96 H 20 96 01/16/20 05:45 94 H 15 88 01/16/20 05:31 94 H 16 93 01/16/20 05:15 92 H 16 92 01/16/20 05:01 92 H 20 94 01/16/20 04:45 95 H 22 95 01/16/20 04:35 96 H 97 01/16/20 04:31 94 H 17 99 01/16/20 04:15 100 H 20 99 01/16/20 04:01 96 H 13 94 01/16/20 04:00 95 H 101 H 19 94 01/16/20 03:45 95 H 19 100 01/16/20 03:31 94 H 19 98 01/16/20 03:27 98.2 F 01/16/20 03:15 95 H 20 100 01/16/20 03:01 96 H 18 99 01/16/20 02:53 92 H 21 99 01/16/20 02:22 21 01/16/20 01:45 97 H 23 109/83 99 01/16/20 01:30 97 H 23 109/83 99 01/16/20 01:15 90 21 105/67 99 01/16/20 01:00 91 H 22 105/67 98 01/16/20 00:45 93 H 22 102/68 98 01/16/20 00:31 94 H 21 102/68 97 01/16/20 00:15 99 H 20 102/68 95 01/16/20 00:00 97 H 101 H 22 102/68 100 01/15/20 23:45 98 H 21 101/71 100 01/15/20 23:32 98.8 F 01/15/20 23:31 97 H 22 101/71 100 01/15/20 23:15 96 H 17 101/71 100 01/15/20 23:00 94 H 17 101/71 100 01/15/20 22:45 92 H 17 103/65 100 01/15/20 22:31 93 H 22 103/65 100 01/15/20 22:15 90 22 103/65 100 01/15/20 22:00 85 21 103/65 100 01/15/20 21:45 87 18 133/92 100 10/23/20 21:31 90 20 133/92 100 01/15/20 21:15 102 H 28 H 133/92 100 01/15/20 21:06 112 H 133/92 100 01/15/20 21:01 126 H 31 H 192/124 80 L 01/15/20 20:45 113 H 25 H 152/97 94 01/15/20 20:31 110 H 34 H 152/97 92 01/15/20 20:21 94 01/15/20 20:15 109 H 25 H 152/97 92 01/15/20 20:14 110 H 152/97 94 01/15/20 20:01 106 H 29 H 152/97 92 01/15/20 20:00 98.2 F 107 H 107 H 27 H 94 01/15/20 19:45 104 H 26 H 132/84 94 01/15/20 19:39 105 H 132/84 01/15/20 19:31 104 H 25 H 132/84 95 01/15/20 19:21 102 H 25 H 132/84 94 01/15/20 19:15 102 H 30 H 132/84 94 01/15/20 19:00 100 H 22 132/84 94 01/15/20 18:45 100 H 21 136/91 94 01/15/20 18:31 101 H 22 136/91 95 01/15/20 18:15 102 H 28 H 136/91 99 01/15/20 18:00 107 H 25 H 136/91 99 01/15/20 17:45 112 H 25 H 144/98 100 01/15/20 17:31 124 H 27 H 97 01/15/20 17:15 111 H 33 H 144/98 90 01/15/20 17:01 110 H 22 144/98 96 01/15/20 16:50 106 H 124/82 96 01/15/20 16:45 105 H 21 124/82 99 01/15/20 16:31 105 H 20 124/82 95 01/15/20 16:15 106 H 22 124/82 97 01/15/20 16:00 98.3 F 91 H 92 H 23 124/82 95 01/15/20 15:45 96 H 20 112/72 99 01/15/20 15:31 94 H 21 112/72 98 01/15/20 15:15 91 H 18 112/72 96 01/15/20 15:00 95 H 21 112/72 97 01/15/20 14:45 97 H 21 121/61 97 01/15/20 14:31 96 H 21 121/61 96 01/15/20 14:15 101 H 21 121/61 93 01/15/20 14:00 100 H 24 127/65 94 01/15/20 13:45 96 H 20 121/61 97 01/15/20 13:31 96 H 18 121/61 96 01/15/20 13:15 93 H 16 121/61 97 01/15/20 13:07 89 121/61 01/15/20 13:00 90 20 121/61 96 Pulse Ox Pulse Ox 01/16/20 12:00 01/16/20 11:45 01/16/20 11:40 01/16/20 11:31 01/16/20 11:15 01/16/20 11:00 01/16/20 10:45 01/16/20 10:31 01/16/20 10:15 01/16/20 10:00 01/16/20 09:45 01/16/20 09:31 01/16/20 09:15 01/16/20 09:01 01/16/20 08:45 01/16/20 08:31 01/16/20 08:15 01/16/20 08:02 01/16/20 08:01 01/16/20 08:00 01/16/20 07:50 01/16/20 07:47 97 01/16/20 07:45 01/16/20 07:40 01/16/20 07:31 01/16/20 07:15 01/16/20 07:01 01/16/20 06:45 01/16/20 06:31 01/16/20 06:15 01/16/20 06:01 01/16/20 05:45 01/16/20 05:31 01/16/20 05:15 01/16/20 05:01 01/16/20 04:45 01/16/20 04:35 01/16/20 04:31 01/16/20 04:15 01/16/20 04:01 01/16/20 04:00 01/16/20 03:45 01/16/20 03:31 01/16/20 03:27 01/16/20 03:15 01/16/20 03:01 01/16/20 02:53 01/16/20 02:22 01/16/20 01:45 01/16/20 01:30 01/16/20 01:15 01/16/20 01:00 01/16/20 00:45 01/16/20 00:31 01/16/20 00:15 01/16/20 00:00 99 01/15/20 23:45 01/15/20 23:32 01/15/20 23:31 01/15/20 23:15 01/15/20 23:00 01/15/20 22:45 01/15/20 22:31 01/15/20 22:15 01/15/20 22:00 01/15/20 21:45 01/15/20 21:31 01/15/20 21:15 01/15/20 21:06 01/15/20 21:01 01/15/20 20:45 01/15/20 20:31 01/15/20 20:21 01/15/20 20:15 01/15/20 20:14 01/15/20 20:01 01/15/20 20:00 01/15/20 19:45 01/15/20 19:39 01/15/20 19:31 01/15/20 19:21 01/15/20 19:15 01/15/20 19:00 01/15/20 18:45 01/15/20 18:31 01/15/20 18:15 01/15/20 18:00 01/15/20 17:45 01/15/20 17:31 01/15/20 17:15 01/15/20 17:01 01/15/20 16:50 96 01/15/20 16:45 01/15/20 16:31 01/15/20 16:15 01/15/20 16:00 01/15/20 15:45 01/15/20 15:31 01/15/20 15:15 01/15/20 15:00 01/15/20 14:45 01/15/20 14:31 01/15/20 14:15 01/15/20 14:00 01/15/20 13:45 01/15/20 13:31 01/15/20 13:15 01/15/20 13:07 01/15/20 13:00 - Physical Examination General: Other (awake, s/p trach) HEENT: Positive: PERRL Neck: Positive: neck supple Cardiac: Positive: Reg Rate and Rhythm Lungs: Positive: Decreased Breath Sounds Neuro: Positive: Weakness, Other (Sedated, on the vent via trach) Abdomen: Positive: Soft Skin: Positive: Clear Extremities: Absent: edema - Allied health notes Allied health notes reviewed: nursing
[2020-01-16] MEDS: HALOPERIDOL LACTATE 5 MG/1 ML INJ IV PRN (16:15)
[2020-01-16] MEDS: POLYETHYLENE GLYCOL 3350 17 GM POWDER PO SCH (21:04)
[2020-01-16] MEDS: TAMSULOSIN 0.4 MG CAP PO SCH (21:05)
[2020-01-17] MEDS: METOPROLOL TARTRATE 25 MG TAB PO SCH ×4 (01:00→19:10)
--- NOTE | 2020-01-17 08:05 | Progress Note ---
Assessment and Plan Assessment and plan: COVID-19 test; 11/24/2019; negative 11/26/2019; negative 12/29/2019: Negative --Acute on chronic hypoxemic respiratory failure; Status post tracheostomy, patient is back on full ventilatory support Pulmonary critical following, nebulizers and supportive care Wean as tolerated and extubate --Acute exacerbation of COPD; Pulmonary critical following, nebulizers Ventilatory support, completed steroids --Left lower lobe PE; On anticoagulation Eliquis Ventilatory support --Acute right lower extremity DVT; Continue Eliquis, elevate the limb --Bilateral multifocal pneumonia/community-acquired Completed antibiotics, supportive care --Severe sepsis/bilateral pneumonia: Completed antibiotics ID following, monitor off antibiotics --Paroxysmal atrial fibrillation; now rate controlled Continue amiodarone, Eliquis, cardiology following --Acute on chronic diastolic congestive heart failure Continue current failure medications EF 50 to 55% Cardiology following --H/o CAD [[facility] 12/2018 in-stent restenosis] Continue current cardiac medications, cardiology following --Hypertensive emergency; present on admission Reasonable blood pressures, continue current antihypertensives As needed medications --History of alcohol abuse/alcohol withdrawal; Was on CIWA protocol, now stable --Oropharyngeal dysphagia; status post PEG placement Continue PEG feeds per protocol --History of partial small bowel obstruction; Surgery evaluated the patient, resolved --Obesity; BMI 34.7 Patient needs weight reduction when medically stable --Severe protein calorie malnutrition/hypoalbuminemia Nutrition supplements, dietitian following, PEG feeds --DVT prophylaxis; Eliquis --Full CODE STATUS We will closely monitor the patient and adjust the management as needed Plan of care reviewed with the patient's nurse The high probability of a clinically significant, sudden or life threatening deterioration of the [Respiratory, cardiovascular & neurological] system(s) required my full and direct attention, intervention and personal management. The aggregate critical care time was [33] minutes without overlap. Time includes spent on [x] Data Review and interpretation [x] Patient assessment and monitoring of vital signs [x] Documentation [x] Medication orders and management 01/05; Pt stable. NGT output 650cc over 24 hours, bilious. No f/c, WBC within normal limits. cont NG suction and cont to hold TF 01/06: Abs series - mild improvement in small bowel distension in mid abdomen, normal gas/stool pattern in colon. NGT in duodenum. Continue to hold tube feeding, maintain NG tube with low intermittent suction. Patient's was updated by phone. Continue to provide supportive care and monitor clinically. 01/07: +BMs today and NGT/PEG output appears more gastric today. Plan to clamp NGT, if tolerates start TF from tomorrow. cont supportive care. 01/08; Gastric output decreased over last 24 hours. NGT has been clamped x 24 hours. plan to dc NGT and to start TTF via PEG - vital HF @10cc/hr 01/09: clinically stable, tolerating TF. monitor BMP, wean off from vent as tolerated clinically stable, on TF. wean off vent as tolerated 01/11: wean off from vent, cont to monitor, on TF 01/12: wean off from vent, cont to monitor, on TF. need placement - unfunded 01/13; remains on ventilatory support, unable to wean, DC planning possible LTAC, unfunded 01/14; patient of ventilatory support, T-piece tracheostomy on oxygen, LTAC placement per case management 01/16; tracheostomy, patient on full ventilatory support, wean off vent support as tolerated, pending LTAC placement, social financial issues . History Interval history: I have seen and examined the patient at the bedside in ICU this morning Patient's chart and medications reviewed Patient was hypoxemic is back on on full mechanical ventilation Vital signs noted Hospitalist Physical - Constitutional Vitals: Temp Pulse Resp BP Pulse Ox 98.3 F 103 H 22 126/86 98 01/17/20 04:00 01/17/20 07:32 01/17/20 06:31 01/17/20 07:32 01/17/20 07:32 General appearance: Present: well-nourished, obese, other (Tracheostomy on vent) - EENT ENT: other (Tracheostomy, on vent) - Neck Neck: Present: supple - Respiratory Respiratory effort: normal Respiratory: bilateral: diminished, rhonchi, negative: rales, wheezing - Cardiovascular Rhythm: regular Heart Sounds: Present: S1 & S2 - Extremities Extremities: no ischemia, No edema - Abdominal General gastrointestinal: soft, non-tender, non-distended, normal bowel sounds - Integumentary Integumentary: Present: clear, warm - Psychiatric Psychiatric: other (On ventilatory support) - Neurologic Neurologic: other (Tracheostomy on vent) HEART Score - HEART Score Troponin: Troponin T < 0.010 ng/mL (0.00-0.029) 11/24/19 02:53 Results - Labs CBC & Chem 7: 01/14/20 16:14 01/14/20 16:14 Labs: Laboratory Last Values WBC 8.3 K/mm3 (4.5-11.0) 01/14/20 16:14 RBC 4.12 M/mm3 (3.65-5.03) 01/14/20 16:14 Hgb 10.6 gm/dl (11.8-15.2) L 01/14/20 16:14 Hct 34.2 % (35.5-45.6) L 01/14/20 16:14 MCV 83 fl (84-94) L 01/14/20 16:14 MCH 26 pg (28-32) L 01/14/20 16:14 MCHC 31 % (32-34) L 01/14/20 16:14 RDW 18.3 % (13.2-15.2) H 01/14/20 16:14 Plt Count 311 K/mm3 (140-440) 01/14/20 16:14 Lymph % (Auto) 17.5 % (13.4-35.0) 01/14/20 16:14 [place] % (Auto) 7.4 % (0.0-7.3) H 01/14/20 16:14 Eos % (Auto) 2.8 % (0.0-4.3) 01/14/20 16:14 Baso % (Auto) 0.4 % (0.0-1.8) 01/14/20 16:14 Lymph # (Auto) 1.5 K/mm3 (1.2-5.4) 01/14/20 16:14 [place] # (Auto) 0.6 K/mm3 (0.0-0.8) 01/14/20 16:14 Eos # (Auto) 0.2 K/mm3 (0.0-0.4) 01/14/20 16:14 Baso # (Auto) 0.0 K/mm3 (0.0-0.1) 01/14/20 16:14 Add Manual Diff Complete 12/19/19 11:32 Total Counted 100 12/19/19 11:32 Seg Neutrophils % 71.9 % (40.0-70.0) H 01/14/20 16:14 Seg Neuts % (Manual) 82.0 % (40.0-70.0) H 12/19/19 11:32 Band Neutrophils % 0 % 12/19/19 11:32 Lymphocytes % (Manual) 10.0 % (13.4-35.0) L 12/19/19 11:32 Reactive Lymphs % (Man) 0 % 12/19/19 11:32 Monocytes % (Manual) 6.0 % (0.0-7.3) 12/19/19 11:32 Eosinophils % (Manual) 2.0 % (0.0-4.3) 12/19/19 11:32 Basophils % (Manual) 0 % (0.0-1.8) 12/19/19 11:32 Metamyelocytes % 0 % 12/19/19 11:32 Myelocytes % 0 % 12/19/19 11:32 Promyelocytes % 0 % 12/19/19 11:32 Blast Cells % 0 % 12/19/19 11:32 Nucleated RBC % 1.0 % (0.0-0.9) H 12/19/19 11:32 Seg Neutrophils # 6.0 K/mm3 (1.8-7.7) 01/14/20 16:14 Seg Neutrophils # Man 12.0 K/mm3 (1.8-7.7) H 12/19/19 11:32 Band Neutrophils # 0.0 K/mm3 12/19/19 11:32 Lymphocytes # (Manual) 1.5 K/mm3 (1.2-5.4) 12/19/19 11:32 Abs React Lymphs (Man) 0.0 K/mm3 12/19/19 11:32 Monocytes # (Manual) 0.9 K/mm3 (0.0-0.8) H 12/19/19 11:32 Eosinophils # (Manual) 0.3 K/mm3 (0.0-0.4) 12/19/19 11:32 Basophils # (Manual) 0.0 K/mm3 (0.0-0.1) 12/19/19 11:32 Metamyelocytes # 0.0 K/mm3 12/19/19 11:32 Myelocytes # 0.0 K/mm3 12/19/19 11:32 Promyelocytes # 0.0 K/mm3 12/19/19 11:32 Blast Cells # 0.0 K/mm3 12/19/19 11:32 WBC Morphology Not Reportable 12/19/19 11:32 Hypersegmented Neuts Not Reportable 12/19/19 11:32 Hyposegmented Neuts Not Reportable 12/19/19 11:32 Hypogranular Neuts Not Reportable 12/19/19 11:32 Smudge Cells Not Reportable 12/19/19 11:32 Toxic Granulation Not Reportable 12/19/19 11:32 Toxic Vacuolation Not Reportable 12/19/19 11:32 Dohle Bodies Not Reportable 12/19/19 11:32 Pelger-Huet Anomaly Not Reportable 12/19/19 11:32 Hector Rods Not Reportable 12/19/19 11:32 Platelet Estimate Consistent w auto 12/19/19 11:32 Clumped Platelets Not Reportable 12/19/19 11:32 Plt Clumps, EDTA Not Reportable 12/19/19 11:32 Large Platelets Not Reportable 12/19/19 11:32 Giant Platelets Not Reportable 12/19/19 11:32 Platelet Satelliting Not Reportable 12/19/19 11:32 Plt Morphology Comment Not Reportable 12/19/19 11:32 RBC Morphology Not Reportable 12/19/19 11:32 Dimorphic RBCs Not Reportable 12/19/19 11:32 Polychromasia Not Reportable 12/19/19 11:32 Hypochromasia Few 12/19/19 11:32 Poikilocytosis Not Reportable 12/19/19 11:32 Anisocytosis 1+ 12/19/19 11:32 Microcytosis Few 12/19/19 11:32 Macrocytosis Few 12/19/19 11:32 Spherocytes Not Reportable 12/19/19 11:32 Pappenheimer Bodies Not Reportable 12/19/19 11:32 Sickle Cells Not Reportable 12/19/19 11:32 Target Cells Not Reportable 12/19/19 11:32 Tear Drop Cells Not Reportable 12/19/19 11:32 Ovalocytes Not Reportable 12/19/19 11:32 Helmet Cells Not Reportable 12/19/19 11:32 Gottlieb-Carnegie Bodies Not Reportable 12/19/19 11:32 [place] Rings Not Reportable 12/19/19 11:32 Oc Cells Not Reportable 12/19/19 11:32 Bite Cells Not Reportable 12/19/19 11:32 Crenated Cell Not Reportable 12/19/19 11:32 Elliptocytes Not Reportable 12/19/19 11:32 Acanthocytes (Spur) Not Reportable 12/19/19 11:32 Rouleaux Not Reportable 12/19/19 11:32 Hemoglobin C Crystals Not Reportable 12/19/19 11:32 Schistocytes Not Reportable 12/19/19 11:32 Malaria parasites Not Reportable 12/19/19 11:32 Clifford Bodies Not Reportable 12/19/19 11:32 Hem Pathologist Commnt No 12/19/19 11:32 PT 13.8 Sec. (12.2-14.9) 12/21/19 10:13 INR 1.05 (0.87-1.13) 12/21/19 10:13 APTT 23.9 Sec. (24.2-36.6) L 12/21/19 10:13 Heparin Anti-Xa Level 0.16 U.I./ml (0.3-0.7) L 01/04/20 04:26 ABG pH 7.449 pH Units (7.350-7.450) 01/13/20 20:40 POC ABG pCO2 45.6 mmHg (32.0-48.0) 01/12/20 13:58 ABG pCO2 46.9 mm Hg 01/13/20 20:40 POC ABG pO2 76.6 mmHg (83-108) L 01/12/20 13:58 ABG pO2 65.3 mm Hg (80.0-90.0) L 01/13/20 20:40 POC ABG HCO3 31.2 01/12/20 13:58 ABG HCO3 31.8 mmol/L (20.0-26.0) H 01/13/20 20:40 ABG O2 Saturation 93.5 % (95.0-99.0) L 01/13/20 20:40 ABG O2 Content 17.0 (0.0-44) 01/13/20 20:40 POC ABG Base Excess 6.5 01/12/20 13:58 ABG Base Excess 6.7 mmol/L (-2.0-3.0) H 01/13/20 20:40 ABG Hemoglobin 13.3 gm/dl (14.0-18.0) L 01/13/20 20:40 ABG Oxyhemoglobin 84 (94-98) L 12/22/19 03:22 ABG Carboxyhemoglobin 2.2 % (0.0-5.0) 01/13/20 20:40 ABG Methemoglobin 0.6 % (0.0-1.5) 01/13/20 20:40 ABG Sodium 136.8 mmol/L (136.0-145.0) 01/12/20 13:58 ABG Potassium 3.7 mmol/L (3.40-4.50) 01/12/20 13:58 ABG Chloride 103.0 mmol/L (98-107) 01/12/20 13:58 ABG Glucose 99 mg/dL (65-95) H 01/12/20 13:58 Oxyhemoglobin 90.9 % (95.0-99.0) L 01/13/20 20:40 Carboxyhemoglobin 0.7 (0.5-1.5) 12/22/19 03:22 FiO2 35 % 01/13/20 20:40 Sodium 143 mmol/L (137-145) 01/14/20 16:14 Potassium 3.6 mmol/L (3.6-5.0) 01/14/20 16:14 Chloride 103.0 mmol/L (98-107) 01/14/20 16:14 Carbon Dioxide 31 mmol/L (22-30) H 01/14/20 16:14 Anion Gap 13 mmol/L 01/14/20 16:14 BUN 10 mg/dL (9-20) 01/14/20 16:14 Creatinine 0.6 mg/dL (0.8-1.3) L 01/14/20 16:14 Estimated GFR > 60 ml/min 01/14/20 16:14 BUN/Creatinine Ratio 17 % 01/14/20 16:14 Glucose 131 mg/dL (75-100) H 01/14/20 16:14 POC Glucose 116 mg/dL (70-105) H 01/17/20 06:38 Lactic Acid 2.50 mmol/L (0.7-2.0) H* 11/24/19 10:37 Magnesium 2.60 mg/dL (1.7-2.3) H 12/07/19 12:41 Calcium 9.4 mg/dL (8.4-10.2) 01/14/20 16:14 Ferritin 84.4 ng/mL (30.0-300.0) 11/24/19 04:53 Direct Bilirubin < 0.2 mg/dL (0-0.2) 12/08/19 03:55 Indirect Bilirubin 0.2 mg/dL 12/08/19 03:55 Phosphorus 3.40 mg/dL (2.5-4.5) 01/12/20 12:01 Total Bilirubin 0.50 mg/dL (0.1-1.2) 01/12/20 00:23 Total Creatine Kinase 141 units/L (55-170) 11/24/19 02:53 CK-MB (CK-2) 4.3 ng/mL (0.0-4.0) H 11/24/19 02:53 AST 16 units/L (5-40) 01/12/20 00:23 ALT 22 units/L (7-56) 01/12/20 00:23 CK-MB (CK-2) Rel Index 3.0 (0-4) 11/24/19 02:53 Alkaline Phosphatase 59 units/L (35-129) 01/12/20 00:23 Troponin T < 0.010 ng/mL (0.00-0.029) 11/24/19 02:53 C-Reactive Protein 8.50 mg/dL (0.00-1.30) H 12/01/19 12:16 Lactate Dehydrogenase 228 units/L (91-180) H 12/19/19 04:45 NT-Pro-B Natriuret Pep 3866 pg/mL (0-900) H 01/01/20 10:40 Total Protein 6.3 g/dL (6.3-8.2) 01/12/20 00:23 Albumin 2.6 g/dL (3.9-5) L 01/12/20 00:23 Albumin/Globulin Ratio 0.7 % 01/12/20 00:23 Procalcitonin 0.76 ng/mL (<0.15) 01/01/20 10:40 Arterial Blood Glucose 99 mg/dL (65-95) H 01/12/20 13:58 Arterial Blood Ionized Calcium 4.8 mg/dL (4.6-5.3) 01/12/20 13:58 Urine Color Cecy (Yellow) 12/31/19 18:04 Urine Turbidity Clear (Clear) 12/31/19 18:04 Urine pH 5.0 (5.0-7.0) 12/31/19 18:04 Ur Specific [place] 1.023 (1.003-1.030) 12/31/19 18:04 Urine Protein <15 mg/dl mg/dL (Negative) 12/31/19 18:04 Urine Glucose (UA) Neg mg/dL (Negative) 12/31/19 18:04 Urine Ketones Neg mg/dL (Negative) 12/31/19 18:04 Urine Blood Neg (Negative) 12/31/19 18:04 Urine Bacteria (Auto) 1+ /HPF (Negative) 12/03/19 06:03 Urine Nitrite Neg (Negative) 12/31/19 18:04 Urine Bilirubin Neg (Negative) 12/31/19 18:04 Urine Urobilinogen 4.0 mg/dL (<2.0) 12/31/19 18:04 Ur Leukocyte Esterase Neg (Negative) 12/31/19 18:04 Urine WBC (Auto) 2.0 /HPF (0.0-6.0) 12/31/19 18:04 Urine RBC (Auto) 3.0 /HPF (0.0-6.0) 12/31/19 18:04 U Epithel Cells (Auto) 2.0 /HPF (0-13.0) 12/31/19 18:04 Urine Mucus 1+ /HPF 12/31/19 18:04 Vancomycin Trough 14.2 ug/mL (5.0-20.0) 12/13/19 15:01 Coronavirus (PCR) Negative (Negative) 12/29/19 10:07 - Diagnostic Impressions Diagnostic Impressions: Echocardiogram 11/29/19 07:37 Transthoracic Echocardiogram Indication: CHF BP: 116/72 HR: 33 Conclusions *The study is technically limited due to poor acoustic windows. *Global left ventricular systolic function is normal. *The estimated ejection fraction is 50-55%. *Mild concentric left ventricular hypertrophy is observed. *There is trace of mitral regurgitation. *There is mild tricuspid regurgitation. Findings Procedure Info: The study quality is poor. The study is technically limited due to poor acoustic windows. The study is technically limited due to patient body habitus. Left Ventricle: The left ventricular chamber size is normal. Mild concentric left ventricular hypertrophy is observed. Global left ventricular systolic function is normal. The estimated ejection fraction is 50-55%. Left Atrium: The left atrial chamber size is normal. Right Ventricle: The right ventricular cavity size is normal. Right Atrium: The right atrial cavity size is normal. Aortic Valve: The aortic valve leaflets are moderately thickened. There is trace of aortic regurgitation. There is no evidence of aortic stenosis. Mitral Valve: The mitral valve leaflets are mildly thickened. There is trace of mitral regurgitation. There is no evidence of mitral stenosis. Tricuspid Valve: There is mild tricuspid regurgitation. No pulmonary hypertension is noted. Pulmonic Valve: There is trace pulmonic regurgitation. Pericardium: There is no pericardial effusion. Aorta: There is no dilatation of the aortic root. Venous: The inferior vena cava appears normal in size. Contrast: Definity was used to optimize study. Intravenous contrast was used to enhance endocardial border definition. Measurements Chambers 2D Name Value Normal Range Ao root diameter (2D) 3.4 cm (2 - 3.7) Aortic Valve Name Value Normal Range AV Vmax 0.98 m/sec - AV VTI 16.76 cm - AV peak gradient 3.83 mmHg - AV mean gradient 2.57 mmHg - LVOT diameter 3.11 cm - LVOT Vmax 0.68 m/sec - LVOT VTI 11.52 cm - LVOT peak gradient 1.84 mmHg - LVOT mean gradient 1.27 mmHg - SV LVOT 87.31 ml - MALOU (continuity Vmax) 5.24 cm2 - MALOU (continuity VTI) 5.21 cm2 - Tricuspid Valve Name Value Normal Range IVC diameter 2.24 cm (1.2 - 2.3) Hoffman/IV: Voiding Method Condom Catheter IV Catheter Type [Right INT / Saline Lock Forearm] IV Catheter Type [Right Hand] INT / Saline Lock IV Catheter Type [Right Upper INT / Saline Lock arm] IV Catheter Type [Left Upper Mid-line arm] IV Catheter Type [Left Forearm INT / Saline Lock ] IV Catheter Type [Left Hand] INT / Saline Lock IV Catheter Type [Left Wrist] INT / Saline Lock IV Catheter Type [Right Peripheral IV Antecubital] Active Medications - Current Medications Current Medications: Generic Name Dose Route Start Last Admin Trade Name Freq PRN Reason Stop Dose Admin Acetaminophen 650 mg 12/31/19 11:43 01/14/20 08:27 Tylenol FEEDTUBE 650 mg Q6H PRN Administration Pain, Mild (1-3) Amiodarone HCl 200 mg 12/04/19 14:00 01/16/20 21:05 Cordarone PO 200 mg BID CAR Administration Lipase/Protease/Amylase 1 each 01/09/20 12:[address] 10,500 Unit FEEDTUBE PRN PRN For Clogged Feeding Tube Apixaban 5 mg 01/11/20 22:00 01/16/20 21:04 Eliquis PO 5 mg Q12HR CAR Administration Protocol Bisacodyl 10 mg 01/06/20 13:00 01/16/20 09:28 Dulcolax MI Not Given DAILY CAR Docusate Sodium 100 mg 12/02/19 22:00 01/16/20 21:04 Colace FEEDTUBE 100 mg BID CAR Administration Famotidine 20 mg 01/12/20 10:00 01/16/20 21:05 Pepcid PO 20 mg BID CAR Administration Furosemide 40 mg 01/16/20 10:00 01/16/20 09:27 Lasix IV 40 mg QDAY CAR Administration Glycopyrrolate 2 mg 01/12/20 22:00 01/16/20 21:05 Glycopyrrolate PO 2 mg BID CAR Administration Haloperidol Lactate 5 mg 12/25/19 10:00 01/16/20 16:15 Haldol IV 5 mg Q6H PRN Administration Unrespon. to mult. doses BZD's Lorazepam 2 mg 12/25/19 10:00 01/16/20 16:43 Ativan IV 2 mg Q6H PRN Administration AGITATION Magnesium Hydroxide 30 ml 01/14/20 13:35 Milk Of Magnesia PO QDAY PRN Constip unreliev by MOM/or NPO Metoprolol Tartrate 5 mg 01/11/20 08:00 01/14/20 02:32 Metoprolol IV 5 mg Q6H PRN Administration SEE INSTRUCTIONS Metoprolol Tartrate 25 mg 01/11/20 13:00 01/17/20 01:00 Metoprolol PO Not Given Q6H CAR Morphine Sulfate 2 mg 01/06/20 15:41 01/16/20 14:48 Morphine IV 2 mg Q4H PRN Administration Pain, Moderate (4-6) Ondansetron HCl 4 mg 01/05/20 14:37 01/05/20 16:18 Zofran IV 4 mg Q8H PRN Administration Nausea And Vomiting Polyethylene Glycol 17 gm 12/04/19 22:00 01/16/20 21:04 Miralax 3350 PO 17 gm QHS CAR Administration Quetiapine Fumarate 300 mg 01/13/20 22:00 01/16/20 21:05 Seroquel PO 300 mg BID CAR Administration Scopolamine 1 each 01/07/20 20:00 01/07/20 21:08 Transderm-Scop TD 1 each Q72HR CAR Administration Simple Syrup 15 ml 01/09/20 12:01 Simple Syrup FEEDTUBE PRN PRN Hypoglycemia Simple Syrup 30 ml 01/09/20 12:01 Simple Syrup FEEDTUBE PRN PRN Hypoglycemia Sodium Bicarbonate 325 mg 01/09/20 12:01 Sodium Bicarbonate FEEDTUBE PRN PRN For Clogged Feeding Tube Sodium Chloride 10 ml 11/24/19 10:00 01/16/20 21:06 Sodium Chloride Flush Syringe 10 Ml IV 10 ml BID CAR Administration Tamsulosin HCl 0.8 mg 12/20/19 22:00 01/16/20 21:05 Flomax PO 0.8 mg QHS CAR Administration Nutrition/Malnutrition Assess - Dietary Evaluation Nutrition/Malnutrition Findings: Nutrition Notes Start: 11/24/19 12:22 Freq: Status: Active Protocol: Document 01/15/20 12:20 AL (Rec: 01/15/20 12:51 AL [email or web address]) Co-Sign 01/15/20 12:20 Nutrition Notes Initial or Follow up Reassessment Current Diagnosis Coronary Artery Disease,Heart Failure,Respiratory Failure, Stroke,Hyperlipidemia Other Pertinent Diagnosis Partial SBO, pneu Current Diet Vital HP at 70 ml/hr (goal rate) Labs/Tests Reviewed Pertinent Medications Reviewed Height 6 ft 2 in Weight 120 kg [place] Body Weight (kg) 86.36 BMI 34.0 Weight Status Obese Subjective/Other Information TF tolerated at 70 ml/hr (goal rate). Pt extubated. Percent of energy/protein needs met: 100%/79% Burn Absent Trauma Absent GI Symptoms None Current % PO Negligible Minimum of two criteria No Fluid Accumulation Mild (non-severe) #1 Nutrition Diagnosis Inadequate oral intake Diagnosis Progress(for reassessment Continues documentation) Is patient on ventilator? No Is Patient Ambulatory and/or Out of Bed No REE-([facility]-confined to bed) 2482.308 Kcal/Kg value to use for calculation 14 Approximate Energy Requirements Using 1680 kcal/Kg Calculation Used for Recommendations Kcal/kg Additional Notes Pro needs 82-103 g/day (.8-1. 0g/kg AdBW) Fluid needs 1ml/kcal Nutrition Intervention Change Diet Order: Change TF to Promote 1.0 at 70 ml/hr Nutrition Support: Promote 1.0 at 70ml/hr (goal rate) Flush 50 ml q4h or per MD Kcal 1,680 Protein (gm) 105 Fluid (mL) 1,409 Goal #1 Change TF Goal #2 TF (at goal rate) to meet 75% energy and Pro needs Anticipated Discharge Needs: unable to determine Follow-Up By: 01/19/20 Additional Comments TF tolerance.
[2020-01-17] MEDS: MORPHINE 2 MG/1 ML INJ IV PRN ×3 (08:42→18:21)
[2020-01-17] MEDS: FAMOTIDINE 20 MG TAB PO SCH ×2 (10:00→21:44)
[2020-01-17] MEDS: AMIODARONE 200 MG TAB PO SCH ×2 (10:00→21:44)
[2020-01-17] MEDS: FUROSEMIDE 40 MG/4 ML INJ IV SCH (10:00)
[2020-01-17] MEDS: LORazepam 2 MG/ML VIAL IV PRN ×2 (10:00→16:01)
[2020-01-17] MEDS: QUEtiapine 100 MG TAB PO SCH ×2 (10:00→21:45)
[2020-01-17] MEDS: GLYCOPYRROLATE 2 MG TAB PO SCH ×2 (10:00→21:44)
[2020-01-17] MEDS: DOCUSATE SODIUM 100 MG/10 ML ORAL LIQD FEEDTUBE SCH ×2 (10:00→21:55)
[2020-01-17] MEDS: APIXABAN 5 MG TAB PO SCH ×2 (10:01→21:44)
[2020-01-17] MEDS: HALOPERIDOL LACTATE 5 MG/1 ML INJ IV PRN (11:19)
--- NOTE | 2020-01-17 12:32 | Progress Note ---
Assessment and Plan Acute hypoxemic respiratory failure Bilateral pneumonia, community acquired. Acute LLL branch P.E. Acute DVT Person under investigation for COVID-19 infection. Acute congestive heart failure exacerbation. History of cerebrovascular accident. Acute chronic obstructive pulmonary disease exacerbation. Hypertension and hypertensive urgency at presentation. History of arthritis. Leukocytosis. Lactic acidosis. Oropharyngeal dysphagia - follow CXR - continue Robinul & Scopolamine for secretion control - s/p trach tube downsize - continue full anticoagulation with Apixaban - continue care as below otherwise; - continue daily SAT's and SBT assessment as tolerated - continue seroquel for anxiolysis / delirium - COVID isolation per facility protocol - prn diuresis while following electrolytes / I's & O's - continue to wean oxygen for O2 sat's > 92% - continue bronchodilators with routine trach care and pulmonary hygiene per RT - VAP bundle addressed (Aspiration precautions, HOB >40) - continue to wean per pulmonary driven protocols - sedation target is RASS 0 to -1 - continue prn analgesia per CPOT score - follow clinically re: fever curves / trend WBC - Avoid delirium (no benzodiazepines if they can be avoided) - Maintain sleep-wake cycle - enteral nutrition at goal rate as tolerated - continue accucheck's with glycemic control per SSI for target blood glucose goal of 140-180 mg/dL while critically ill; Avoid hypoglycemia - for VTE he is on IV Heparin - continue stress ulcer prophylaxis with Famotidine - continue mobility protocols for pressure ulcer prophylaxis - continue fall precautions - continue wound care management per RN / WCT - Supportive transfusions to keep HgB>7g/dL - CXR's and ABG's prn - Continue to monitor neurologic function - Continue chronic home medications - Continue all supportive care ........ re-evaluate in am & prn CONDITION: CRITICAL PROGNOSIS: GUARDED CODE STATUS: FULL CODE The high probability of a clinically significant, sudden or life threatening deterioration of the [Respiratory, cardiovascular & neurological] system(s) required my full and direct attention, intervention and personal management. The aggregate critical care time was [33] minutes without overlap. Time includes spent on [x] Data Review and interpretation [x] Patient assessment and monitoring of vital signs [x] Documentation [x] Medication orders and management Subjective Date of service: 01/17/20 Principal diagnosis: Ac hypoxemic resp failure; Pneumonia; PUI COVID-19; CHF; COPD; HTN Interval history: Patient is seen today for: Acute hypoxemic respiratory failure; Adan. Pneumonia (CAP); PUI COVID-19 infection; AE-CHF; AE-COPD; H/O CVA; HTN Seen and examined at bedside; 24 hour events reviewed; nursing and respiratory care staff consulted; no adverse overnight events reported to me; resting peacefully in bed; remains non MVS; weaning tenuously and not tolerating t- piece; No N/V/F/C Objective Vital Signs - 12hr 01/17/20 01/17/20 01/17/20 00:45 01:00 01:15 Temperature Pulse Rate 92 H 88 94 H Pulse Rate [ From Monitor] Respiratory 24 25 H 14 Rate Blood Pressure 112/76 97/59 97/59 O2 Sat by Pulse 95 95 Oximetry O2 Sat by Pulse Oximetry [ Assessment] O2 Sat by Pulse Oximetry [ Downsized] 01/17/20 01/17/20 01/17/20 01:31 01:45 02:00 Temperature Pulse Rate 101 H 103 H 101 H Pulse Rate [ From Monitor] Respiratory 19 33 H 22 Rate Blood Pressure 97/59 97/59 107/69 O2 Sat by Pulse 98 95 Oximetry O2 Sat by Pulse Oximetry [ Assessment] O2 Sat by Pulse Oximetry [ Downsized] 01/17/20 01/17/20 01/17/20 02:15 02:31 02:45 Temperature Pulse Rate 93 H 89 88 Pulse Rate [ From Monitor] Respiratory 23 23 25 H Rate Blood Pressure 107/69 107/69 107/69 O2 Sat by Pulse 95 96 96 Oximetry O2 Sat by Pulse Oximetry [ Assessment] O2 Sat by Pulse Oximetry [ Downsized] 01/17/20 01/17/20 01/17/20 03:00 03:16 03:31 Temperature Pulse Rate 90 103 H 107 H Pulse Rate [ From Monitor] Respiratory 23 18 21 Rate Blood Pressure 95/59 95/59 O2 Sat by Pulse 97 96 Oximetry O2 Sat by Pulse Oximetry [ Assessment] O2 Sat by Pulse Oximetry [ Downsized] 01/17/20 01/17/20 01/17/20 03:45 04:00 04:15 Temperature 98.3 F Pulse Rate 107 H 95 H 93 H Pulse Rate [ 97 H From Monitor] Respiratory 31 H 16 19 Rate Blood Pressure 95/59 95/68 95/68 O2 Sat by Pulse 95 95 94 Oximetry O2 Sat by Pulse Oximetry [ Assessment] O2 Sat by Pulse Oximetry [ Downsized] 01/17/20 01/17/20 01/17/20 04:22 04:31 04:45 Temperature Pulse Rate 91 H 90 94 H Pulse Rate [ From Monitor] Respiratory 24 22 Rate Blood Pressure 95/68 95/68 95/68 O2 Sat by Pulse 95 97 97 Oximetry O2 Sat by Pulse 98 Oximetry [ Assessment] O2 Sat by Pulse 95 Oximetry [ Downsized] 01/17/20 01/17/20 01/17/20 05:00 05:15 05:31 Temperature Pulse Rate 100 H 108 H 112 H Pulse Rate [ From Monitor] Respiratory 17 19 19 Rate Blood Pressure 108/76 108/76 108/76 O2 Sat by Pulse 96 97 98 Oximetry O2 Sat by Pulse Oximetry [ Assessment] O2 Sat by Pulse Oximetry [ Downsized] 01/17/20 01/17/20 01/17/20 05:45 06:01 06:15 Temperature Pulse Rate 110 H 104 H 94 H Pulse Rate [ From Monitor] Respiratory 21 23 21 Rate Blood Pressure 124/83 128/81 128/81 O2 Sat by Pulse 98 91 96 Oximetry O2 Sat by Pulse Oximetry [ Assessment] O2 Sat by Pulse Oximetry [ Downsized] 01/17/20 01/17/20 01/17/20 06:31 06:45 07:00 Temperature Pulse Rate 101 H 107 H 104 H Pulse Rate [ From Monitor] Respiratory 22 26 H 21 Rate Blood Pressure 128/81 128/81 126/86 O2 Sat by Pulse 98 98 Oximetry O2 Sat by Pulse Oximetry [ Assessment] O2 Sat by Pulse Oximetry [ Downsized] 01/17/20 01/17/20 01/17/20 07:15 07:31 07:32 Temperature Pulse Rate 105 H 103 H 103 H Pulse Rate [ From Monitor] Respiratory 23 17 Rate Blood Pressure 126/86 126/86 126/86 O2 Sat by Pulse 97 100 98 Oximetry O2 Sat by Pulse Oximetry [ Assessment] O2 Sat by Pulse Oximetry [ Downsized] 01/17/20 01/17/20 01/17/20 07:45 08:00 08:10 Temperature 98.2 F Pulse Rate 104 H 103 H 103 H Pulse Rate [ 106 H From Monitor] Respiratory 26 H 26 H 24 Rate Blood Pressure 126/86 116/83 116/83 O2 Sat by Pulse 98 100 98 Oximetry O2 Sat by Pulse Oximetry [ Assessment] O2 Sat by Pulse Oximetry [ Downsized] 01/17/20 01/17/20 01/17/20 08:15 08:31 08:41 Temperature Pulse Rate 103 H 103 H 103 H Pulse Rate [ From Monitor] Respiratory 25 H 22 Rate Blood Pressure 116/83 116/83 116/83 O2 Sat by Pulse 97 98 Oximetry O2 Sat by Pulse Oximetry [ Assessment] O2 Sat by Pulse Oximetry [ Downsized] 01/17/20 01/17/20 01/17/20 08:42 08:45 09:00 Temperature Pulse Rate 104 H 108 H Pulse Rate [ From Monitor] Respiratory 25 H 25 H 22 Rate Blood Pressure 116/83 118/77 O2 Sat by Pulse 98 93 Oximetry O2 Sat by Pulse Oximetry [ Assessment] O2 Sat by Pulse Oximetry [ Downsized] 01/17/20 01/17/20 01/17/20 09:15 09:31 09:45 Temperature Pulse Rate 103 H 103 H 101 H Pulse Rate [ From Monitor] Respiratory 25 H 23 25 H Rate Blood Pressure 118/77 118/77 118/77 O2 Sat by Pulse 97 97 99 Oximetry O2 Sat by Pulse Oximetry [ Assessment] O2 Sat by Pulse Oximetry [ Downsized] 01/17/20 01/17/20 01/17/20 10:00 10:15 10:31 Temperature Pulse Rate 99 H 97 H 100 H Pulse Rate [ From Monitor] Respiratory 24 24 24 Rate Blood Pressure 116/76 116/76 116/76 O2 Sat by Pulse 98 98 Oximetry O2 Sat by Pulse Oximetry [ Assessment] O2 Sat by Pulse Oximetry [ Downsized] 01/17/20 01/17/20 01/17/20 10:45 11:00 11:15 Temperature Pulse Rate 103 H 101 H 97 H Pulse Rate [ From Monitor] Respiratory 26 H 24 22 Rate Blood Pressure 116/76 116/78 116/78 O2 Sat by Pulse 98 98 Oximetry O2 Sat by Pulse Oximetry [ Assessment] O2 Sat by Pulse Oximetry [ Downsized] 01/17/20 01/17/20 01/17/20 11:31 11:45 12:00 Temperature 98.5 F Pulse Rate 97 H 97 H 97 H Pulse Rate [ 98 H From Monitor] Respiratory 22 21 20 Rate Blood Pressure 116/76 116/76 114/77 O2 Sat by Pulse 99 99 100 Oximetry O2 Sat by Pulse Oximetry [ Assessment] O2 Sat by Pulse Oximetry [ Downsized] Constitutional: no acute distress, other (elelderly and obese male, normocephalic with mildly increased respiratory effort at rest ) Eyes: non-icteric ENT: oropharynx moist, other (trach to MVS) Neck: supple, no JVD Effort: very labored Ascultation: Bilateral: diminished breath sounds, rhonchi, other (+ secretions) Percussion: Bilateral: not dull Cardiovascular: irregular rhythm, other (S1,S2) Gastrointestinal: normoactive bowel sounds, soft, non-tender, other (protuberant; PEG in place) Integumentary: normal Extremities: no cyanosis, pulses normal, no ischemia or petechiae, edema (bilateral upper ) Neurologic: non-focal exam (moves extremities), pupils equal and round, CN II- XII normal, motor strength normal and (weak) Psychiatric: mood appropriate, affect normal CBC and BMP: 01/18/20 06:46 01/18/20 06:46 ABG, PT/INR, D-dimer: ABG ABG pH 7.449 pH Units (7.350-7.450) 01/13/20 20:40 POC ABG pCO2 45.6 mmHg (32.0-48.0) 01/12/20 13:58 ABG pCO2 46.9 mm Hg 01/13/20 20:40 POC ABG pO2 76.6 mmHg (83-108) L 01/12/20 13:58 ABG pO2 65.3 mm Hg (80.0-90.0) L 01/13/20 20:40 POC ABG HCO3 31.2 01/12/20 13:58 ABG O2 Saturation 93.5 % (95.0-99.0) L 01/13/20 20:40 PT/INR, D-dimer PT 13.8 Sec. (12.2-14.9) 12/21/19 10:13 INR 1.05 (0.87-1.13) 12/21/19 10:13 Abnormal lab findings: Abnormal Labs 11/24/19 11/24/19 11/24/19 02:53 02:53 03:45 WBC 14.3 H RBC Hgb Hct MCHC RDW 17.2 H MCV MCH Lymph % (Auto) [place] % (Auto) [place] # Eos # Lymph # (Auto) [place] # (Auto) Eos # (Auto) Seg Neutrophils % Seg Neuts % (Manual) Baso # (Auto) Lymphocytes % (Manual) Monocytes % (Manual) Eosinophils % (Manual) Basophils % (Manual) Seg Neutrophils # Seg Neutrophils # Man 8.3 H Lymphocytes # (Manual) Monocytes # (Manual) 0.9 H Eosinophils # (Manual) Nucleated RBC % Basophils # (Manual) APTT Heparin Anti-Xa Level ABG pH 7.313 L POC ABG pO2 ABG pO2 102.8 H ABG HCO3 ABG O2 Saturation ABG Base Excess -2.9 L POC ABG pCO2 ABG Hemoglobin ABG Oxyhemoglobin ABG Glucose Oxyhemoglobin 93.9 L Sodium Potassium Chloride Carbon Dioxide BUN Creatinine Glucose 195 H POC Glucose Lactic Acid Calcium Phosphorus Magnesium AST ALT Lactate Dehydrogenase CK-MB (CK-2) 4.3 H C-Reactive Protein NT-Pro-B Natriuret Pep 1181 H Total Protein Albumin Arterial Blood Glucose Urine WBC (Auto) 11/24/19 11/24/19 11/24/19 04:53 04:53 10:37 WBC RBC Hgb Hct MCHC RDW MCV MCH Lymph % (Auto) [place] % (Auto) [place] # Eos # Lymph # (Auto) [place] # (Auto) Eos # (Auto) Seg Neutrophils % Seg Neuts % (Manual) Baso # (Auto) Lymphocytes % (Manual) Monocytes % (Manual) Eosinophils % (Manual) Basophils % (Manual) Seg Neutrophils # Seg Neutrophils # Man Lymphocytes # (Manual) Monocytes # (Manual) Eosinophils # (Manual) Nucleated RBC % Basophils # (Manual) APTT Heparin Anti-Xa Level ABG pH POC ABG pO2 ABG pO2 ABG HCO3 ABG O2 Saturation ABG Base Excess POC ABG pCO2 ABG Hemoglobin ABG Oxyhemoglobin ABG Glucose Oxyhemoglobin Sodium Potassium Chloride Carbon Dioxide BUN Creatinine Glucose 162 H POC Glucose Lactic Acid 2.40 H* 2.50 H* Calcium Phosphorus Magnesium AST ALT Lactate Dehydrogenase 240 H CK-MB (CK-2) C-Reactive Protein NT-Pro-B Natriuret Pep Total Protein Albumin Arterial Blood Glucose Urine WBC (Auto) 11/24/19 11/24/19 11/24/19 12:21 14:50 19:54 WBC RBC Hgb Hct MCHC RDW MCV MCH Lymph % (Auto) [place] % (Auto) [place] # Eos # Lymph # (Auto) [place] # (Auto) Eos # (Auto) Seg Neutrophils % Seg Neuts % (Manual) Baso # (Auto) Lymphocytes % (Manual) Monocytes % (Manual) Eosinophils % (Manual) Basophils % (Manual) Seg Neutrophils # Seg Neutrophils # Man Lymphocytes # (Manual) Monocytes # (Manual) Eosinophils # (Manual) Nucleated RBC % Basophils # (Manual) APTT Heparin Anti-Xa Level ABG pH POC ABG pO2 ABG pO2 ABG HCO3 ABG O2 Saturation ABG Base Excess POC ABG pCO2 ABG Hemoglobin ABG Oxyhemoglobin ABG Glucose Oxyhemoglobin Sodium Potassium Chloride Carbon Dioxide BUN Creatinine Glucose POC Glucose 145 H 143 H 124 H Lactic Acid Calcium Phosphorus Magnesium AST ALT Lactate Dehydrogenase CK-MB (CK-2) C-Reactive Protein NT-Pro-B Natriuret Pep Total Protein Albumin Arterial Blood Glucose Urine WBC (Auto) 11/25/19 11/25/19 11/25/19 00:18 03:18 05:11 WBC 13.7 H RBC Hgb Hct MCHC RDW 17.1 H MCV MCH Lymph % (Auto) 10.8 L [place] % (Auto) 8.7 H [place] # 1.2 H Eos # Lymph # (Auto) [place] # (Auto) Eos # (Auto) Seg Neutrophils % 80.2 H Seg Neuts % (Manual) Baso # (Auto) Lymphocytes % (Manual) Monocytes % (Manual) Eosinophils % (Manual) Basophils % (Manual) Seg Neutrophils # 11.0 H Seg Neutrophils # Man Lymphocytes # (Manual) Monocytes # (Manual) Eosinophils # (Manual) Nucleated RBC % Basophils # (Manual) APTT Heparin Anti-Xa Level ABG pH 7.333 L POC ABG pO2 ABG pO2 61.2 L ABG HCO3 ABG O2 Saturation 90.2 L ABG Base Excess POC ABG pCO2 ABG Hemoglobin 13.7 L ABG Oxyhemoglobin ABG Glucose Oxyhemoglobin 88.2 L Sodium Potassium Chloride Carbon Dioxide BUN Creatinine Glucose POC Glucose 109 H Lactic Acid Calcium Phosphorus Magnesium AST ALT Lactate Dehydrogenase CK-MB (CK-2) C-Reactive Protein NT-Pro-B Natriuret Pep Total Protein Albumin Arterial Blood Glucose Urine WBC (Auto) 11/25/19 11/25/19 11/26/19 05:11 11:40 03:12 WBC RBC Hgb Hct MCHC RDW MCV MCH Lymph % (Auto) [place] % (Auto) [place] # Eos # Lymph # (Auto) [place] # (Auto) Eos # (Auto) Seg Neutrophils % Seg Neuts % (Manual) Baso # (Auto) Lymphocytes % (Manual) Monocytes % (Manual) Eosinophils % (Manual) Basophils % (Manual) Seg Neutrophils # Seg Neutrophils # Man Lymphocytes # (Manual) Monocytes # (Manual) Eosinophils # (Manual) Nucleated RBC % Basophils # (Manual) APTT Heparin Anti-Xa Level ABG pH POC ABG pO2 ABG pO2 155.1 H ABG HCO3 27.8 H ABG O2 Saturation ABG Base Excess POC ABG pCO2 ABG Hemoglobin 12.2 L ABG Oxyhemoglobin ABG Glucose Oxyhemoglobin Sodium Potassium Chloride Carbon Dioxide BUN 23 H Creatinine Glucose 110 H POC Glucose 108 H Lactic Acid Calcium Phosphorus Magnesium AST ALT Lactate Dehydrogenase CK-MB (CK-2) C-Reactive Protein NT-Pro-B Natriuret Pep Total Protein Albumin Arterial Blood Glucose Urine WBC (Auto) 11/26/19 11/26/19 11/26/19 06:17 10:43 10:43 WBC 11.4 H RBC Hgb Hct MCHC RDW 17.1 H MCV MCH Lymph % (Auto) [place] % (Auto) [place] # Eos # Lymph # (Auto) [place] # (Auto) Eos # (Auto) Seg Neutrophils % Seg Neuts % (Manual) Baso # (Auto) Lymphocytes % (Manual) Monocytes % (Manual) Eosinophils % (Manual) Basophils % (Manual) Seg Neutrophils # Seg Neutrophils # Man Lymphocytes # (Manual) Monocytes # (Manual) Eosinophils # (Manual) Nucleated RBC % Basophils # (Manual) APTT Heparin Anti-Xa Level ABG pH POC ABG pO2 ABG pO2 ABG HCO3 ABG O2 Saturation ABG Base Excess POC ABG pCO2 ABG Hemoglobin ABG Oxyhemoglobin ABG Glucose Oxyhemoglobin Sodium Potassium Chloride Carbon Dioxide BUN 29 H Creatinine Glucose POC Glucose 107 H Lactic Acid Calcium Phosphorus Magnesium AST ALT Lactate Dehydrogenase CK-MB (CK-2) C-Reactive Protein NT-Pro-B Natriuret Pep Total Protein Albumin Arterial Blood Glucose Urine WBC (Auto) 11/26/19 11/27/19 11/27/19 17:11 01:53 04:11 WBC RBC Hgb Hct MCHC RDW MCV MCH Lymph % (Auto) [place] % (Auto) [place] # Eos # Lymph # (Auto) [place] # (Auto) Eos # (Auto) Seg Neutrophils % Seg Neuts % (Manual) Baso # (Auto) Lymphocytes % (Manual) Monocytes % (Manual) Eosinophils % (Manual) Basophils % (Manual) Seg Neutrophils # Seg Neutrophils # Man Lymphocytes # (Manual) Monocytes # (Manual) Eosinophils # (Manual) Nucleated RBC % Basophils # (Manual) APTT Heparin Anti-Xa Level ABG pH POC ABG pO2 ABG pO2 ABG HCO3 29.2 H ABG O2 Saturation ABG Base Excess 3.4 H POC ABG pCO2 ABG Hemoglobin 13.3 L ABG Oxyhemoglobin ABG Glucose Oxyhemoglobin 94.5 L Sodium Potassium Chloride Carbon Dioxide BUN Creatinine Glucose POC Glucose 113 H 108 H Lactic Acid Calcium Phosphorus Magnesium AST ALT Lactate Dehydrogenase CK-MB (CK-2) C-Reactive Protein NT-Pro-B Natriuret Pep Total Protein Albumin Arterial Blood Glucose Urine WBC (Auto) 11/27/19 11/28/19 11/28/19 05:27 05:00 05:25 WBC RBC Hgb Hct MCHC RDW MCV MCH Lymph % (Auto) [place] % (Auto) [place] # Eos # Lymph # (Auto) [place] # (Auto) Eos # (Auto) Seg Neutrophils % Seg Neuts % (Manual) Baso # (Auto) Lymphocytes % (Manual) Monocytes % (Manual) Eosinophils % (Manual) Basophils % (Manual) Seg Neutrophils # Seg Neutrophils # Man Lymphocytes # (Manual) Monocytes # (Manual) Eosinophils # (Manual) Nucleated RBC % Basophils # (Manual) APTT Heparin Anti-Xa Level ABG pH POC ABG pO2 68.1 L ABG pO2 ABG HCO3 ABG O2 Saturation ABG Base Excess POC ABG pCO2 ABG Hemoglobin ABG Oxyhemoglobin 91.2 L ABG Glucose Oxyhemoglobin Sodium Potassium Chloride Carbon Dioxide BUN Creatinine Glucose POC Glucose 111 H 110 H Lactic Acid Calcium Phosphorus Magnesium AST ALT Lactate Dehydrogenase CK-MB (CK-2) C-Reactive Protein NT-Pro-B Natriuret Pep Total Protein Albumin Arterial Blood Glucose Urine WBC (Auto) 11/28/19 11/28/19 11/28/19 12:08 13:47 13:47 WBC 11.3 H RBC Hgb Hct MCHC RDW 16.1 H MCV MCH Lymph % (Auto) [place] % (Auto) 9.9 H [place] # 1.1 H Eos # Lymph # (Auto) [place] # (Auto) Eos # (Auto) Seg Neutrophils % 71.4 H Seg Neuts % (Manual) Baso # (Auto) Lymphocytes % (Manual) Monocytes % (Manual) Eosinophils % (Manual) Basophils % (Manual) Seg Neutrophils # 8.1 H Seg Neutrophils # Man Lymphocytes # (Manual) Monocytes # (Manual) Eosinophils # (Manual) Nucleated RBC % Basophils # (Manual) APTT Heparin Anti-Xa Level ABG pH POC ABG pO2 ABG pO2 ABG HCO3 ABG O2 Saturation ABG Base Excess POC ABG pCO2 ABG Hemoglobin ABG Oxyhemoglobin ABG Glucose Oxyhemoglobin Sodium Potassium Chloride Carbon Dioxide BUN 23 H Creatinine Glucose 123 H POC Glucose 112 H Lactic Acid Calcium Phosphorus Magnesium AST ALT Lactate Dehydrogenase CK-MB (CK-2) C-Reactive Protein NT-Pro-B Natriuret Pep Total Protein Albumin 3.7 L Arterial Blood Glucose Urine WBC (Auto) 11/28/19 11/29/19 11/29/19 17:26 03:55 17:04 WBC RBC Hgb Hct MCHC RDW MCV MCH Lymph % (Auto) [place] % (Auto) [place] # Eos # Lymph # (Auto) [place] # (Auto) Eos # (Auto) Seg Neutrophils % Seg Neuts % (Manual) Baso # (Auto) Lymphocytes % (Manual) Monocytes % (Manual) Eosinophils % (Manual) Basophils % (Manual) Seg Neutrophils # Seg Neutrophils # Man Lymphocytes # (Manual) Monocytes # (Manual) Eosinophils # (Manual) Nucleated RBC % Basophils # (Manual) APTT Heparin Anti-Xa Level ABG pH POC ABG pO2 ABG pO2 65.7 L ABG HCO3 28.3 H ABG O2 Saturation 93.9 L ABG Base Excess 3.6 H POC ABG pCO2 ABG Hemoglobin 13.3 L ABG Oxyhemoglobin ABG Glucose Oxyhemoglobin 91.5 L Sodium Potassium Chloride Carbon Dioxide BUN Creatinine Glucose POC Glucose 123 H 119 H Lactic Acid Calcium Phosphorus Magnesium AST ALT Lactate Dehydrogenase CK-MB (CK-2) C-Reactive Protein NT-Pro-B Natriuret Pep Total Protein Albumin Arterial Blood Glucose Urine WBC (Auto) 11/30/19 11/30/19 11/30/19 04:17 04:17 04:56 WBC 13.4 H RBC Hgb Hct MCHC RDW 15.6 H MCV MCH Lymph % (Auto) [place] % (Auto) [place] # Eos # Lymph # (Auto) [place] # (Auto) Eos # (Auto) Seg Neutrophils % Seg Neuts % (Manual) Baso # (Auto) Lymphocytes % (Manual) Monocytes % (Manual) Eosinophils % (Manual) Basophils % (Manual) Seg Neutrophils # Seg Neutrophils # Man Lymphocytes # (Manual) Monocytes # (Manual) Eosinophils # (Manual) Nucleated RBC % Basophils # (Manual) APTT Heparin Anti-Xa Level ABG pH POC ABG pO2 ABG pO2 56.3 L ABG HCO3 29.3 H ABG O2 Saturation 91.5 L ABG Base Excess 4.7 H POC ABG pCO2 ABG Hemoglobin 12.1 L ABG Oxyhemoglobin ABG Glucose Oxyhemoglobin 89.2 L Sodium 147 H Potassium Chloride Carbon Dioxide BUN 30 H Creatinine Glucose 124 H POC Glucose Lactic Acid Calcium Phosphorus Magnesium AST ALT Lactate Dehydrogenase CK-MB (CK-2) C-Reactive Protein NT-Pro-B Natriuret Pep Total Protein Albumin 3.8 L Arterial Blood Glucose Urine WBC (Auto) 11/30/19 11/30/19 11/30/19 05:51 11:54 18:17 WBC RBC Hgb Hct MCHC RDW MCV MCH Lymph % (Auto) [place] % (Auto) [place] # Eos # Lymph # (Auto) [place] # (Auto) Eos # (Auto) Seg Neutrophils % Seg Neuts % (Manual) Baso # (Auto) Lymphocytes % (Manual) Monocytes % (Manual) Eosinophils % (Manual) Basophils % (Manual) Seg Neutrophils # Seg Neutrophils # Man Lymphocytes # (Manual) Monocytes # (Manual) Eosinophils # (Manual) Nucleated RBC % Basophils # (Manual) APTT Heparin Anti-Xa Level ABG pH POC ABG pO2 ABG pO2 ABG HCO3 ABG O2 Saturation ABG Base Excess POC ABG pCO2 ABG Hemoglobin ABG Oxyhemoglobin ABG Glucose Oxyhemoglobin Sodium Potassium Chloride Carbon Dioxide BUN Creatinine Glucose POC Glucose 127 H 115 H 143 H Lactic Acid Calcium Phosphorus Magnesium AST ALT Lactate Dehydrogenase CK-MB (CK-2) C-Reactive Protein NT-Pro-B Natriuret Pep Total Protein Albumin Arterial Blood Glucose Urine WBC (Auto) 12/01/19 12/01/19 12/01/19 01:18 05:22 12:16 WBC RBC Hgb Hct MCHC RDW MCV MCH Lymph % (Auto) [place] % (Auto) [place] # Eos # Lymph # (Auto) [place] # (Auto) Eos # (Auto) Seg Neutrophils % Seg Neuts % (Manual) Baso # (Auto) Lymphocytes % (Manual) Monocytes % (Manual) Eosinophils % (Manual) Basophils % (Manual) Seg Neutrophils # Seg Neutrophils # Man Lymphocytes # (Manual) Monocytes # (Manual) Eosinophils # (Manual) Nucleated RBC % Basophils # (Manual) APTT Heparin Anti-Xa Level ABG pH POC ABG pO2 ABG pO2 ABG HCO3 ABG O2 Saturation ABG Base Excess POC ABG pCO2 ABG Hemoglobin ABG Oxyhemoglobin ABG Glucose Oxyhemoglobin Sodium Potassium 3.5 L Chloride 107.8 H Carbon Dioxide BUN 37 H Creatinine Glucose 157 H POC Glucose 118 H 148 H Lactic Acid Calcium 8.2 L D Phosphorus Magnesium AST 48 H ALT 60 H Lactate Dehydrogenase 194 H CK-MB (CK-2) C-Reactive Protein 8.50 H NT-Pro-B Natriuret Pep Total Protein 5.5 L Albumin 2.8 L Arterial Blood Glucose Urine WBC (Auto) 12/01/19 12/02/19 12/02/19 18:04 00:05 05:16 WBC 11.4 H RBC Hgb Hct MCHC RDW 15.9 H MCV MCH Lymph % (Auto) [place] % (Auto) 9.9 H [place] # 1.1 H Eos # Lymph # (Auto) [place] # (Auto) Eos # (Auto) Seg Neutrophils % 70.3 H Seg Neuts % (Manual) Baso # (Auto) Lymphocytes % (Manual) Monocytes % (Manual) Eosinophils % (Manual) Basophils % (Manual) Seg Neutrophils # 8.0 H Seg Neutrophils # Man Lymphocytes # (Manual) Monocytes # (Manual) Eosinophils # (Manual) Nucleated RBC % Basophils # (Manual) APTT Heparin Anti-Xa Level ABG pH POC ABG pO2 ABG pO2 ABG HCO3 ABG O2 Saturation ABG Base Excess POC ABG pCO2 ABG Hemoglobin ABG Oxyhemoglobin ABG Glucose Oxyhemoglobin Sodium Potassium Chloride Carbon Dioxide BUN Creatinine Glucose POC Glucose 143 H 107 H Lactic Acid Calcium Phosphorus Magnesium AST ALT Lactate Dehydrogenase CK-MB (CK-2) C-Reactive Protein NT-Pro-B Natriuret Pep Total Protein Albumin Arterial Blood Glucose Urine WBC (Auto) 12/02/19 12/02/1912/01/20 05:16 06:03 11:52 WBC RBC Hgb Hct MCHC RDW MCV MCH Lymph % (Auto) [place] % (Auto) [place] # Eos # Lymph # (Auto) [place] # (Auto) Eos # (Auto) Seg Neutrophils % Seg Neuts % (Manual) Baso # (Auto) Lymphocytes % (Manual) Monocytes % (Manual) Eosinophils % (Manual) Basophils % (Manual) Seg Neutrophils # Seg Neutrophils # Man Lymphocytes # (Manual) Monocytes # (Manual) Eosinophils # (Manual) Nucleated RBC % Basophils # (Manual) APTT Heparin Anti-Xa Level ABG pH POC ABG pO2 ABG pO2 ABG HCO3 ABG O2 Saturation ABG Base Excess POC ABG pCO2 ABG Hemoglobin ABG Oxyhemoglobin ABG Glucose Oxyhemoglobin Sodium 146 H Potassium Chloride Carbon Dioxide BUN 28 H Creatinine Glucose 123 H POC Glucose 110 H 152 H Lactic Acid Calcium Phosphorus Magnesium AST ALT Lactate Dehydrogenase CK-MB (CK-2) C-Reactive Protein NT-Pro-B Natriuret Pep Total Protein Albumin Arterial Blood Glucose Urine WBC (Auto) 12/02/19 12/02/19 12/02/19 12:58 17:58 23:36 WBC RBC Hgb Hct MCHC RDW MCV MCH Lymph % (Auto) [place] % (Auto) [place] # Eos # Lymph # (Auto) [place] # (Auto) Eos # (Auto) Seg Neutrophils % Seg Neuts % (Manual) Baso # (Auto) Lymphocytes % (Manual) Monocytes % (Manual) Eosinophils % (Manual) Basophils % (Manual) Seg Neutrophils # Seg Neutrophils # Man Lymphocytes # (Manual) Monocytes # (Manual) Eosinophils # (Manual) Nucleated RBC % Basophils # (Manual) APTT Heparin Anti-Xa Level ABG pH POC ABG pO2 78.1 L ABG pO2 ABG HCO3 ABG O2 Saturation ABG Base Excess POC ABG pCO2 ABG Hemoglobin ABG Oxyhemoglobin ABG Glucose Oxyhemoglobin Sodium Potassium Chloride Carbon Dioxide BUN Creatinine Glucose POC Glucose 120 H 123 H Lactic Acid Calcium Phosphorus Magnesium AST ALT Lactate Dehydrogenase CK-MB (CK-2) C-Reactive Protein NT-Pro-B Natriuret Pep Total Protein Albumin Arterial Blood Glucose Urine WBC (Auto) 12/03/19 12/03/19 12/03/19 06:03 06:14 11:46 WBC RBC Hgb Hct MCHC RDW MCV MCH Lymph % (Auto) [place] % (Auto) [place] # Eos # Lymph # (Auto) [place] # (Auto) Eos # (Auto) Seg Neutrophils % Seg Neuts % (Manual) Baso # (Auto) Lymphocytes % (Manual) Monocytes % (Manual) Eosinophils % (Manual) Basophils % (Manual) Seg Neutrophils # Seg Neutrophils # Man Lymphocytes # (Manual) Monocytes # (Manual) Eosinophils # (Manual) Nucleated RBC % Basophils # (Manual) APTT Heparin Anti-Xa Level ABG pH POC ABG pO2 ABG pO2 ABG HCO3 ABG O2 Saturation ABG Base Excess POC ABG pCO2 ABG Hemoglobin ABG Oxyhemoglobin ABG Glucose Oxyhemoglobin Sodium Potassium Chloride Carbon Dioxide BUN Creatinine Glucose POC Glucose 142 H 130 H Lactic Acid Calcium Phosphorus Magnesium AST ALT Lactate Dehydrogenase CK-MB (CK-2) C-Reactive Protein NT-Pro-B Natriuret Pep Total Protein Albumin Arterial Blood Glucose Urine WBC (Auto) 8.0 H 12/03/19 12/03/19 12/04/19 15:50 17:39 00:04 WBC RBC Hgb Hct MCHC RDW MCV MCH Lymph % (Auto) [place] % (Auto) [place] # Eos # Lymph # (Auto) [place] # (Auto) Eos # (Auto) Seg Neutrophils % Seg Neuts % (Manual) Baso # (Auto) Lymphocytes % (Manual) Monocytes % (Manual) Eosinophils % (Manual) Basophils % (Manual) Seg Neutrophils # Seg Neutrophils # Man Lymphocytes # (Manual) Monocytes # (Manual) Eosinophils # (Manual) Nucleated RBC % Basophils # (Manual) APTT Heparin Anti-Xa Level ABG pH POC ABG pO2 ABG pO2 ABG HCO3 ABG O2 Saturation ABG Base Excess POC ABG pCO2 ABG Hemoglobin ABG Oxyhemoglobin ABG Glucose Oxyhemoglobin Sodium Potassium Chloride Carbon Dioxide BUN Creatinine Glucose POC Glucose 146 H 133 H Lactic Acid Calcium Phosphorus 2.40 L Magnesium AST ALT Lactate Dehydrogenase CK-MB (CK-2) C-Reactive Protein NT-Pro-B Natriuret Pep Total Protein Albumin Arterial Blood Glucose Urine WBC (Auto) 12/04/19 12/04/19 12/04/19 03:58 03:58 05:22 WBC 12.5 H RBC Hgb 11.2 L Hct 35.2 L MCHC RDW 16.0 H MCV MCH Lymph % (Auto) [place] % (Auto) 9.6 H [place] # 1.2 H Eos # 0.5 H Lymph # (Auto) [place] # (Auto) Eos # (Auto) Seg Neutrophils % Seg Neuts % (Manual) Baso # (Auto) Lymphocytes % (Manual) Monocytes % (Manual) Eosinophils % (Manual) Basophils % (Manual) Seg Neutrophils # 8.6 H Seg Neutrophils # Man Lymphocytes # (Manual) Monocytes # (Manual) Eosinophils # (Manual) Nucleated RBC % Basophils # (Manual) APTT Heparin Anti-Xa Level ABG pH POC ABG pO2 ABG pO2 ABG HCO3 ABG O2 Saturation ABG Base Excess POC ABG pCO2 ABG Hemoglobin ABG Oxyhemoglobin ABG Glucose Oxyhemoglobin Sodium 146 H Potassium Chloride 108.6 H Carbon Dioxide BUN 30 H Creatinine 0.7 L Glucose 121 H POC Glucose 132 H Lactic Acid Calcium Phosphorus Magnesium AST ALT Lactate Dehydrogenase CK-MB (CK-2) C-Reactive Protein NT-Pro-B Natriuret Pep Total Protein Albumin Arterial Blood Glucose Urine WBC (Auto) 12/04/19 12/04/19 12/05/19 13:26 18:43 00:19 WBC RBC Hgb Hct MCHC RDW MCV MCH Lymph % (Auto) [place] % (Auto) [place] # Eos # Lymph # (Auto) [place] # (Auto) Eos # (Auto) Seg Neutrophils % Seg Neuts % (Manual) Baso # (Auto) Lymphocytes % (Manual) Monocytes % (Manual) Eosinophils % (Manual) Basophils % (Manual) Seg Neutrophils # Seg Neutrophils # Man Lymphocytes # (Manual) Monocytes # (Manual) Eosinophils # (Manual) Nucleated RBC % Basophils # (Manual) APTT Heparin Anti-Xa Level ABG pH POC ABG pO2 ABG pO2 ABG HCO3 ABG O2 Saturation ABG Base Excess POC ABG pCO2 ABG Hemoglobin ABG Oxyhemoglobin ABG Glucose Oxyhemoglobin Sodium Potassium Chloride Carbon Dioxide BUN Creatinine Glucose POC Glucose 185 H 156 H 150 H Lactic Acid Calcium Phosphorus Magnesium AST ALT Lactate Dehydrogenase CK-MB (CK-2) C-Reactive Protein NT-Pro-B Natriuret Pep Total Protein Albumin Arterial Blood Glucose Urine WBC (Auto) 12/05/19 12/05/19 12/05/19 03:37 03:37 05:14 WBC 16.3 H RBC Hgb 11.4 L Hct MCHC RDW 15.6 H MCV MCH Lymph % (Auto) 9.9 L [place] % (Auto) 9.7 H [place] # 1.6 H Eos # Lymph # (Auto) [place] # (Auto) Eos # (Auto) Seg Neutrophils % 78.0 H Seg Neuts % (Manual) Baso # (Auto) Lymphocytes % (Manual) Monocytes % (Manual) Eosinophils % (Manual) Basophils % (Manual) Seg Neutrophils # 12.7 H Seg Neutrophils # Man Lymphocytes # (Manual) Monocytes # (Manual) Eosinophils # (Manual) Nucleated RBC % Basophils # (Manual) APTT Heparin Anti-Xa Level ABG pH POC ABG pO2 ABG pO2 ABG HCO3 ABG O2 Saturation ABG Base Excess POC ABG pCO2 ABG Hemoglobin ABG Oxyhemoglobin ABG Glucose Oxyhemoglobin Sodium 146 H Potassium Chloride 107.2 H Carbon Dioxide BUN 27 H Creatinine 0.7 L Glucose 171 H POC Glucose 168 H Lactic Acid Calcium Phosphorus Magnesium AST ALT Lactate Dehydrogenase CK-MB (CK-2) C-Reactive Protein NT-Pro-B Natriuret Pep Total Protein Albumin Arterial Blood Glucose Urine WBC (Auto) 12/05/19 12/05/19 12/05/19 12:31 18:10 23:58 WBC RBC Hgb Hct MCHC RDW MCV MCH Lymph % (Auto) [place] % (Auto) [place] # Eos # Lymph # (Auto) [place] # (Auto) Eos # (Auto) Seg Neutrophils % Seg Neuts % (Manual) Baso # (Auto) Lymphocytes % (Manual) Monocytes % (Manual) Eosinophils % (Manual) Basophils % (Manual) Seg Neutrophils # Seg Neutrophils # Man Lymphocytes # (Manual) Monocytes # (Manual) Eosinophils # (Manual) Nucleated RBC % Basophils # (Manual) APTT Heparin Anti-Xa Level ABG pH POC ABG pO2 ABG pO2 ABG HCO3 ABG O2 Saturation ABG Base Excess POC ABG pCO2 ABG Hemoglobin ABG Oxyhemoglobin ABG Glucose Oxyhemoglobin Sodium Potassium Chloride Carbon Dioxide BUN Creatinine Glucose POC Glucose 159 H 198 H 115 H Lactic Acid Calcium Phosphorus Magnesium AST ALT Lactate Dehydrogenase CK-MB (CK-2) C-Reactive Protein NT-Pro-B Natriuret Pep Total Protein Albumin Arterial Blood Glucose Urine WBC (Auto) 12/06/19 12/06/19 12/06/19 05:24 05:24 05:25 WBC 14.9 H RBC Hgb 10.8 L Hct 34.0 L MCHC RDW 15.6 H MCV MCH Lymph % (Auto) 10.7 L [place] % (Auto) 8.3 H [place] # 1.2 H Eos # Lymph # (Auto) [place] # (Auto) Eos # (Auto) Seg Neutrophils % 78.7 H Seg Neuts % (Manual) Baso # (Auto) Lymphocytes % (Manual) Monocytes % (Manual) Eosinophils % (Manual) Basophils % (Manual) Seg Neutrophils # 11.7 H Seg Neutrophils # Man Lymphocytes # (Manual) Monocytes # (Manual) Eosinophils # (Manual) Nucleated RBC % Basophils # (Manual) APTT Heparin Anti-Xa Level ABG pH POC ABG pO2 ABG pO2 ABG HCO3 ABG O2 Saturation ABG Base Excess POC ABG pCO2 ABG Hemoglobin ABG Oxyhemoglobin ABG Glucose Oxyhemoglobin Sodium 148 H Potassium 5.1 H Chloride 107.6 H Carbon Dioxide BUN 27 H Creatinine 0.7 L Glucose 155 H POC Glucose 157 H Lactic Acid Calcium Phosphorus Magnesium AST ALT Lactate Dehydrogenase CK-MB (CK-2) C-Reactive Protein NT-Pro-B Natriuret Pep Total Protein Albumin Arterial Blood Glucose Urine WBC (Auto) 12/07/19 12/07/19 12/07/19 00:13 05:34 11:33 WBC RBC Hgb Hct MCHC RDW MCV MCH Lymph % (Auto) [place] % (Auto) [place] # Eos # Lymph # (Auto) [place] # (Auto) Eos # (Auto) Seg Neutrophils % Seg Neuts % (Manual) Baso # (Auto) Lymphocytes % (Manual) Monocytes % (Manual) Eosinophils % (Manual) Basophils % (Manual) Seg Neutrophils # Seg Neutrophils # Man Lymphocytes # (Manual) Monocytes # (Manual) Eosinophils # (Manual) Nucleated RBC % Basophils # (Manual) APTT Heparin Anti-Xa Level ABG pH POC ABG pO2 ABG pO2 ABG HCO3 ABG O2 Saturation ABG Base Excess POC ABG pCO2 ABG Hemoglobin ABG Oxyhemoglobin ABG Glucose Oxyhemoglobin Sodium Potassium Chloride Carbon Dioxide BUN Creatinine Glucose POC Glucose 142 H 111 H 169 H Lactic Acid Calcium Phosphorus Magnesium AST ALT Lactate Dehydrogenase CK-MB (CK-2) C-Reactive Protein NT-Pro-B Natriuret Pep Total Protein Albumin Arterial Blood Glucose Urine WBC (Auto) 12/07/19 12/07/19 12/07/19 12:41 13:25 18:19 WBC 12.4 H RBC 3.53 L Hgb 10.2 L Hct 32.1 L MCHC RDW 15.3 H MCV MCH Lymph % (Auto) 10.6 L [place] % (Auto) 7.8 H [place] # 1.0 H Eos # Lymph # (Auto) [place] # (Auto) Eos # (Auto) Seg Neutrophils % 77.6 H Seg Neuts % (Manual) Baso # (Auto) Lymphocytes % (Manual) Monocytes % (Manual) Eosinophils % (Manual) Basophils % (Manual) Seg Neutrophils # 9.6 H Seg Neutrophils # Man Lymphocytes # (Manual) Monocytes # (Manual) Eosinophils # (Manual) Nucleated RBC % Basophils # (Manual) APTT Heparin Anti-Xa Level ABG pH POC ABG pO2 ABG pO2 ABG HCO3 ABG O2 Saturation ABG Base Excess POC ABG pCO2 ABG Hemoglobin ABG Oxyhemoglobin ABG Glucose Oxyhemoglobin Sodium 149 H Potassium Chloride 108.4 H Carbon Dioxide BUN 26 H Creatinine 0.6 L Glucose 149 H POC Glucose 164 H Lactic Acid Calcium Phosphorus Magnesium 2.60 H AST 121 H ALT 145 H Lactate Dehydrogenase CK-MB (CK-2) C-Reactive Protein NT-Pro-B Natriuret Pep Total Protein Albumin 2.6 L Arterial Blood Glucose Urine WBC (Auto) 12/07/19 12/08/19 12/08/19 22:25 00:02 03:55 WBC 13.3 H RBC 3.40 L Hgb 9.7 L Hct 30.8 L MCHC 31 L RDW 15.5 H MCV MCH Lymph % (Auto) [place] % (Auto) 8.1 H [place] # 1.1 H Eos # Lymph # (Auto) [place] # (Auto) Eos # (Auto) Seg Neutrophils % 73.0 H Seg Neuts % (Manual) Baso # (Auto) Lymphocytes % (Manual) Monocytes % (Manual) Eosinophils % (Manual) Basophils % (Manual) Seg Neutrophils # 9.7 H Seg Neutrophils # Man Lymphocytes # (Manual) Monocytes # (Manual) Eosinophils # (Manual) Nucleated RBC % Basophils # (Manual) APTT Heparin Anti-Xa Level 0.12 L ABG pH POC ABG pO2 ABG pO2 ABG HCO3 ABG O2 Saturation ABG Base Excess POC ABG pCO2 ABG Hemoglobin ABG Oxyhemoglobin ABG Glucose Oxyhemoglobin Sodium Potassium Chloride Carbon Dioxide BUN Creatinine Glucose POC Glucose 151 H Lactic Acid Calcium Phosphorus Magnesium AST ALT Lactate Dehydrogenase CK-MB (CK-2) C-Reactive Protein NT-Pro-B Natriuret Pep Total Protein Albumin Arterial Blood Glucose Urine WBC (Auto) 12/08/19 12/08/19 12/08/19 03:55 05:21 06:01 WBC RBC Hgb Hct MCHC RDW MCV MCH Lymph % (Auto) [place] % (Auto) [place] # Eos # Lymph # (Auto) [place] # (Auto) Eos # (Auto) Seg Neutrophils % Seg Neuts % (Manual) Baso # (Auto) Lymphocytes % (Manual) Monocytes % (Manual) Eosinophils % (Manual) Basophils % (Manual) Seg Neutrophils # Seg Neutrophils # Man Lymphocytes # (Manual) Monocytes # (Manual) Eosinophils # (Manual) Nucleated RBC % Basophils # (Manual) APTT Heparin Anti-Xa Level 0.20 L ABG pH POC ABG pO2 ABG pO2 ABG HCO3 ABG O2 Saturation ABG Base Excess POC ABG pCO2 ABG Hemoglobin ABG Oxyhemoglobin ABG Glucose Oxyhemoglobin Sodium 149 H Potassium Chloride 108.0 H Carbon Dioxide BUN 28 H Creatinine 0.6 L Glucose 144 H POC Glucose 143 H Lactic Acid Calcium Phosphorus Magnesium AST 98 H ALT 145 H Lactate Dehydrogenase CK-MB (CK-2) C-Reactive Protein NT-Pro-B Natriuret Pep Total Protein 6.0 L Albumin 2.4 L Arterial Blood Glucose Urine WBC (Auto) 12/08/19 12/08/19 12/08/19 12:08 18:11 23:53 WBC RBC Hgb Hct MCHC RDW MCV MCH Lymph % (Auto) [place] % (Auto) [place] # Eos # Lymph # (Auto) [place] # (Auto) Eos # (Auto) Seg Neutrophils % Seg Neuts % (Manual) Baso # (Auto) Lymphocytes % (Manual) Monocytes % (Manual) Eosinophils % (Manual) Basophils % (Manual) Seg Neutrophils # Seg Neutrophils # Man Lymphocytes # (Manual) Monocytes # (Manual) Eosinophils # (Manual) Nucleated RBC % Basophils # (Manual) APTT Heparin Anti-Xa Level ABG pH POC ABG pO2 ABG pO2 ABG HCO3 ABG O2 Saturation ABG Base Excess POC ABG pCO2 ABG Hemoglobin ABG Oxyhemoglobin ABG Glucose Oxyhemoglobin Sodium Potassium Chloride Carbon Dioxide BUN Creatinine Glucose POC Glucose 172 H 122 H 162 H Lactic Acid Calcium Phosphorus Magnesium AST ALT Lactate Dehydrogenase CK-MB (CK-2) C-Reactive Protein NT-Pro-B Natriuret Pep Total Protein Albumin Arterial Blood Glucose Urine WBC (Auto) 12/09/19 12/09/19 12/09/19 04:03 04:03 05:53 WBC RBC Hgb 9.1 L Hct 28.9 L MCHC RDW MCV MCH Lymph % (Auto) [place] % (Auto) [place] # Eos # Lymph # (Auto) [place] # (Auto) Eos # (Auto) Seg Neutrophils % Seg Neuts % (Manual) Baso # (Auto) Lymphocytes % (Manual) Monocytes % (Manual) Eosinophils % (Manual) Basophils % (Manual) Seg Neutrophils # Seg Neutrophils # Man Lymphocytes # (Manual) Monocytes # (Manual) Eosinophils # (Manual) Nucleated RBC % Basophils # (Manual) APTT Heparin Anti-Xa Level 0.15 L ABG pH POC ABG pO2 ABG pO2 ABG HCO3 ABG O2 Saturation ABG Base Excess POC ABG pCO2 ABG Hemoglobin ABG Oxyhemoglobin ABG Glucose Oxyhemoglobin Sodium Potassium Chloride Carbon Dioxide BUN Creatinine Glucose POC Glucose 124 H Lactic Acid Calcium Phosphorus Magnesium AST ALT Lactate Dehydrogenase CK-MB (CK-2) C-Reactive Protein NT-Pro-B Natriuret Pep Total Protein Albumin Arterial Blood Glucose Urine WBC (Auto) 12/09/19 12/09/19 12/10/19 09:43 12:41 00:13 WBC RBC Hgb Hct MCHC RDW MCV MCH Lymph % (Auto) [place] % (Auto) [place] # Eos # Lymph # (Auto) [place] # (Auto) Eos # (Auto) Seg Neutrophils % Seg Neuts % (Manual) Baso # (Auto) Lymphocytes % (Manual) Monocytes % (Manual) Eosinophils % (Manual) Basophils % (Manual) Seg Neutrophils # Seg Neutrophils # Man Lymphocytes # (Manual) Monocytes # (Manual) Eosinophils # (Manual) Nucleated RBC % Basophils # (Manual) APTT Heparin Anti-Xa Level ABG pH POC ABG pO2 ABG pO2 ABG HCO3 ABG O2 Saturation ABG Base Excess POC ABG pCO2 ABG Hemoglobin ABG Oxyhemoglobin ABG Glucose Oxyhemoglobin Sodium Potassium Chloride Carbon Dioxide BUN 25 H Creatinine 0.6 L Glucose 131 H POC Glucose 109 H 120 H Lactic Acid Calcium Phosphorus Magnesium AST ALT Lactate Dehydrogenase CK-MB (CK-2) C-Reactive Protein NT-Pro-B Natriuret Pep Total Protein Albumin Arterial Blood Glucose Urine WBC (Auto) 12/10/19 12/10/19 12/10/19 04:14 04:14 12:00 WBC 13.3 H RBC 3.34 L Hgb 9.6 L Hct 30.4 L MCHC RDW 15.4 H MCV MCH Lymph % (Auto) [place] % (Auto) [place] # Eos # Lymph # (Auto) [place] # (Auto) Eos # (Auto) Seg Neutrophils % Seg Neuts % (Manual) 75.0 H Baso # (Auto) Lymphocytes % (Manual) 13.0 L Monocytes % (Manual) 8.0 H Eosinophils % (Manual) Basophils % (Manual) 2.0 H Seg Neutrophils # Seg Neutrophils # Man 10.0 H Lymphocytes # (Manual) Monocytes # (Manual) 1.1 H Eosinophils # (Manual) Nucleated RBC % Basophils # (Manual) 0.3 H APTT Heparin Anti-Xa Level ABG pH POC ABG pO2 ABG pO2 ABG HCO3 ABG O2 Saturation ABG Base Excess POC ABG pCO2 ABG Hemoglobin ABG Oxyhemoglobin ABG Glucose Oxyhemoglobin Sodium 147 H Potassium Chloride 108.3 H Carbon Dioxide BUN 21 H Creatinine 0.6 L Glucose 104 H POC Glucose 133 H Lactic Acid Calcium Phosphorus Magnesium AST ALT Lactate Dehydrogenase CK-MB (CK-2) C-Reactive Protein NT-Pro-B Natriuret Pep Total Protein Albumin Arterial Blood Glucose Urine WBC (Auto) 12/10/19 12/10/19 12/11/19 18:44 21:20 00:08 WBC 14.9 H RBC 3.36 L Hgb 9.6 L Hct 30.5 L MCHC RDW 15.4 H MCV MCH Lymph % (Auto) [place] % (Auto) [place] # Eos # Lymph # (Auto) [place] # (Auto) Eos # (Auto) Seg Neutrophils % Seg Neuts % (Manual) Baso # (Auto) Lymphocytes % (Manual) Monocytes % (Manual) Eosinophils % (Manual) Basophils % (Manual) Seg Neutrophils # Seg Neutrophils # Man Lymphocytes # (Manual) Monocytes # (Manual) Eosinophils # (Manual) Nucleated RBC % Basophils # (Manual) APTT Heparin Anti-Xa Level ABG pH POC ABG pO2 ABG pO2 ABG HCO3 ABG O2 Saturation ABG Base Excess POC ABG pCO2 ABG Hemoglobin ABG Oxyhemoglobin ABG Glucose Oxyhemoglobin Sodium Potassium Chloride Carbon Dioxide BUN Creatinine Glucose POC Glucose 119 H 134 H Lactic Acid Calcium Phosphorus Magnesium AST ALT Lactate Dehydrogenase CK-MB (CK-2) C-Reactive Protein NT-Pro-B Natriuret Pep Total Protein Albumin Arterial Blood Glucose Urine WBC (Auto) 12/11/19 12/11/19 12/11/19 03:54 07:28 08:36 WBC 11.9 H RBC 3.25 L Hgb 9.6 L Hct 29.2 L MCHC RDW 15.7 H MCV MCH Lymph % (Auto) [place] % (Auto) [place] # Eos # Lymph # (Auto) [place] # (Auto) Eos # (Auto) Seg Neutrophils % Seg Neuts % (Manual) Baso # (Auto) Lymphocytes % (Manual) Monocytes % (Manual) Eosinophils % (Manual) Basophils % (Manual) Seg Neutrophils # Seg Neutrophils # Man Lymphocytes # (Manual) Monocytes # (Manual) Eosinophils # (Manual) Nucleated RBC % Basophils # (Manual) APTT Heparin Anti-Xa Level 0.10 L 0.16 L ABG pH POC ABG pO2 ABG pO2 ABG HCO3 ABG O2 Saturation ABG Base Excess POC ABG pCO2 ABG Hemoglobin ABG Oxyhemoglobin ABG Glucose Oxyhemoglobin Sodium Potassium Chloride Carbon Dioxide BUN Creatinine Glucose POC Glucose Lactic Acid Calcium Phosphorus Magnesium AST ALT Lactate Dehydrogenase CK-MB (CK-2) C-Reactive Protein NT-Pro-B Natriuret Pep Total Protein Albumin Arterial Blood Glucose Urine WBC (Auto) 12/11/19 12/11/19 12/11/19 08:36 11:45 17:15 WBC RBC Hgb Hct MCHC RDW MCV MCH Lymph % (Auto) [place] % (Auto) [place] # Eos # Lymph # (Auto) [place] # (Auto) Eos # (Auto) Seg Neutrophils % Seg Neuts % (Manual) Baso # (Auto) Lymphocytes % (Manual) Monocytes % (Manual) Eosinophils % (Manual) Basophils % (Manual) Seg Neutrophils # Seg Neutrophils # Man Lymphocytes # (Manual) Monocytes # (Manual) Eosinophils # (Manual) Nucleated RBC % Basophils # (Manual) APTT Heparin Anti-Xa Level ABG pH POC ABG pO2 ABG pO2 ABG HCO3 ABG O2 Saturation ABG Base Excess POC ABG pCO2 ABG Hemoglobin ABG Oxyhemoglobin ABG Glucose Oxyhemoglobin Sodium Potassium Chloride Carbon Dioxide BUN Creatinine 0.5 L Glucose 128 H POC Glucose 136 H 109 H Lactic Acid Calcium Phosphorus Magnesium AST ALT Lactate Dehydrogenase CK-MB (CK-2) C-Reactive Protein NT-Pro-B Natriuret Pep Total Protein Albumin Arterial Blood Glucose Urine WBC (Auto) 12/12/19 12/12/19 12/12/19 00:03 05:53 05:53 WBC RBC Hgb 8.8 L Hct 27.6 L MCHC RDW MCV MCH Lymph % (Auto) [place] % (Auto) [place] # Eos # Lymph # (Auto) [place] # (Auto) Eos # (Auto) Seg Neutrophils % Seg Neuts % (Manual) Baso # (Auto) Lymphocytes % (Manual) Monocytes % (Manual) Eosinophils % (Manual) Basophils % (Manual) Seg Neutrophils # Seg Neutrophils # Man Lymphocytes # (Manual) Monocytes # (Manual) Eosinophils # (Manual) Nucleated RBC % Basophils # (Manual) APTT Heparin Anti-Xa Level 0.22 L ABG pH POC ABG pO2 ABG pO2 ABG HCO3 ABG O2 Saturation ABG Base Excess POC ABG pCO2 ABG Hemoglobin ABG Oxyhemoglobin ABG Glucose Oxyhemoglobin Sodium Potassium Chloride Carbon Dioxide BUN Creatinine Glucose POC Glucose 116 H Lactic Acid Calcium Phosphorus Magnesium AST ALT Lactate Dehydrogenase CK-MB (CK-2) C-Reactive Protein NT-Pro-B Natriuret Pep Total Protein Albumin Arterial Blood Glucose Urine WBC (Auto) 12/12/19 12/12/19 12/12/19 09:38 12:18 17:44 WBC RBC Hgb Hct MCHC RDW MCV MCH Lymph % (Auto) [place] % (Auto) [place] # Eos # Lymph # (Auto) [place] # (Auto) Eos # (Auto) Seg Neutrophils % Seg Neuts % (Manual) Baso # (Auto) Lymphocytes % (Manual) Monocytes % (Manual) Eosinophils % (Manual) Basophils % (Manual) Seg Neutrophils # Seg Neutrophils # Man Lymphocytes # (Manual) Monocytes # (Manual) Eosinophils # (Manual) Nucleated RBC % Basophils # (Manual) APTT Heparin Anti-Xa Level ABG pH POC ABG pO2 ABG pO2 ABG HCO3 ABG O2 Saturation ABG Base Excess POC ABG pCO2 ABG Hemoglobin ABG Oxyhemoglobin ABG Glucose Oxyhemoglobin Sodium Potassium Chloride Carbon Dioxide BUN Creatinine Glucose POC Glucose 115 H 146 H 146 H Lactic Acid Calcium Phosphorus Magnesium AST ALT Lactate Dehydrogenase CK-MB (CK-2) C-Reactive Protein NT-Pro-B Natriuret Pep Total Protein Albumin Arterial Blood Glucose Urine WBC (Auto) 12/12/19 12/13/19 12/13/19 23:33 05:32 05:32 WBC 13.1 H RBC 3.27 L Hgb 9.5 L Hct 29.3 L MCHC RDW 15.6 H MCV MCH Lymph % (Auto) [place] % (Auto) [place] # Eos # Lymph # (Auto) [place] # (Auto) Eos # (Auto) Seg Neutrophils % Seg Neuts % (Manual) 74.0 H Baso # (Auto) Lymphocytes % (Manual) 8.0 L Monocytes % (Manual) 9.0 H Eosinophils % (Manual) 5.0 H Basophils % (Manual) Seg Neutrophils # Seg Neutrophils # Man 9.7 H Lymphocytes # (Manual) 1.0 L Monocytes # (Manual) 1.2 H Eosinophils # (Manual) 0.7 H Nucleated RBC % Basophils # (Manual) APTT Heparin Anti-Xa Level 0.20 L ABG pH POC ABG pO2 ABG pO2 ABG HCO3 ABG O2 Saturation ABG Base Excess POC ABG pCO2 ABG Hemoglobin ABG Oxyhemoglobin ABG Glucose Oxyhemoglobin Sodium Potassium Chloride Carbon Dioxide BUN Creatinine Glucose POC Glucose 126 H Lactic Acid Calcium Phosphorus Magnesium AST ALT Lactate Dehydrogenase CK-MB (CK-2) C-Reactive Protein NT-Pro-B Natriuret Pep Total Protein Albumin Arterial Blood Glucose Urine WBC (Auto) 12/13/19 12/13/19 12/13/19 05:32 05:46 11:57 WBC RBC Hgb Hct MCHC RDW MCV MCH Lymph % (Auto) [place] % (Auto) [place] # Eos # Lymph # (Auto) [place] # (Auto) Eos # (Auto) Seg Neutrophils % Seg Neuts % (Manual) Baso # (Auto) Lymphocytes % (Manual) Monocytes % (Manual) Eosinophils % (Manual) Basophils % (Manual) Seg Neutrophils # Seg Neutrophils # Man Lymphocytes # (Manual) Monocytes # (Manual) Eosinophils # (Manual) Nucleated RBC % Basophils # (Manual) APTT Heparin Anti-Xa Level ABG pH POC ABG pO2 ABG pO2 ABG HCO3 ABG O2 Saturation ABG Base Excess POC ABG pCO2 ABG Hemoglobin ABG Oxyhemoglobin ABG Glucose Oxyhemoglobin Sodium Potassium Chloride Carbon Dioxide 31 H BUN Creatinine 0.6 L Glucose 114 H POC Glucose 118 H 133 H Lactic Acid Calcium Phosphorus Magnesium AST ALT Lactate Dehydrogenase CK-MB (CK-2) C-Reactive Protein NT-Pro-B Natriuret Pep Total Protein Albumin Arterial Blood Glucose Urine WBC (Auto) 12/13/19 12/13/19 12/14/19 17:44 23:46 05:32 WBC RBC Hgb Hct MCHC RDW MCV MCH Lymph % (Auto) [place] % (Auto) [place] # Eos # Lymph # (Auto) [place] # (Auto) Eos # (Auto) Seg Neutrophils % Seg Neuts % (Manual) Baso # (Auto) Lymphocytes % (Manual) Monocytes % (Manual) Eosinophils % (Manual) Basophils % (Manual) Seg Neutrophils # Seg Neutrophils # Man Lymphocytes # (Manual) Monocytes # (Manual) Eosinophils # (Manual) Nucleated RBC % Basophils # (Manual) APTT Heparin Anti-Xa Level ABG pH POC ABG pO2 ABG pO2 ABG HCO3 ABG O2 Saturation ABG Base Excess POC ABG pCO2 ABG Hemoglobin ABG Oxyhemoglobin ABG Glucose Oxyhemoglobin Sodium Potassium Chloride Carbon Dioxide BUN Creatinine Glucose POC Glucose 161 H 126 H 139 H Lactic Acid Calcium Phosphorus Magnesium AST ALT Lactate Dehydrogenase CK-MB (CK-2) C-Reactive Protein NT-Pro-B Natriuret Pep Total Protein Albumin Arterial Blood Glucose Urine WBC (Auto) 12/14/19 12/14/19 12/14/19 06:03 06:03 09:37 WBC RBC Hgb 9.6 L Hct 30.4 L MCHC RDW MCV MCH Lymph % (Auto) [place] % (Auto) [place] # Eos # Lymph # (Auto) [place] # (Auto) Eos # (Auto) Seg Neutrophils % Seg Neuts % (Manual) Baso # (Auto) Lymphocytes % (Manual) Monocytes % (Manual) Eosinophils % (Manual) Basophils % (Manual) Seg Neutrophils # Seg Neutrophils # Man Lymphocytes # (Manual) Monocytes # (Manual) Eosinophils # (Manual) Nucleated RBC % Basophils # (Manual) APTT Heparin Anti-Xa Level 0.24 L ABG pH POC ABG pO2 ABG pO2 ABG HCO3 ABG O2 Saturation ABG Base Excess POC ABG pCO2 ABG Hemoglobin ABG Oxyhemoglobin ABG Glucose Oxyhemoglobin Sodium Potassium Chloride Carbon Dioxide BUN Creatinine 0.6 L Glucose 162 H POC Glucose Lactic Acid Calcium Phosphorus Magnesium AST 71 H ALT 118 H Lactate Dehydrogenase CK-MB (CK-2) C-Reactive Protein NT-Pro-B Natriuret Pep Total Protein 6.2 L Albumin 2.3 L Arterial Blood Glucose Urine WBC (Auto) 12/14/19 12/14/19 12/15/19 12:06 18:18 00:19 WBC RBC Hgb Hct MCHC RDW MCV MCH Lymph % (Auto) [place] % (Auto) Blaine # Eos # Lymph # (Auto) [place] # (Auto) Eos # (Auto) Seg Neutrophils % Seg Neuts % (Manual) Baso # (Auto) Lymphocytes % (Manual) Monocytes % (Manual) Eosinophils % (Manual) Basophils % (Manual) Seg Neutrophils # Seg Neutrophils # Man Lymphocytes # (Manual) Monocytes # (Manual) Eosinophils # (Manual) Nucleated RBC % Basophils # (Manual) APTT Heparin Anti-Xa Level ABG pH POC ABG pO2 ABG pO2 ABG HCO3 ABG O2 Saturation ABG Base Excess POC ABG pCO2 ABG Hemoglobin ABG Oxyhemoglobin ABG Glucose Oxyhemoglobin Sodium Potassium Chloride Carbon Dioxide BUN Creatinine Glucose POC Glucose 147 H 166 H 123 H Lactic Acid Calcium Phosphorus Magnesium AST ALT Lactate Dehydrogenase CK-MB (CK-2) C-Reactive Protein NT-Pro-B Natriuret Pep Total Protein Albumin Arterial Blood Glucose Urine WBC (Auto) 12/15/19 12/15/19 12/15/19 05:28 05:29 05:29 WBC 14.9 H RBC 3.19 L Hgb 9.1 L Hct 28.7 L MCHC RDW 16.0 H MCV MCH Lymph % (Auto) [place] % (Auto) Blaine # Eos # Lymph # (Auto) [place] # (Auto) Eos # (Auto) Seg Neutrophils % Seg Neuts % (Manual) Baso # (Auto) Lymphocytes % (Manual) Monocytes % (Manual) Eosinophils % (Manual) Basophils % (Manual) Seg Neutrophils # Seg Neutrophils # Man Lymphocytes # (Manual) Monocytes # (Manual) Eosinophils # (Manual) Nucleated RBC % Basophils # (Manual) APTT Heparin Anti-Xa Level 0.19 L ABG pH POC ABG pO2 ABG pO2 ABG HCO3 ABG O2 Saturation ABG Base Excess POC ABG pCO2 ABG Hemoglobin ABG Oxyhemoglobin ABG Glucose Oxyhemoglobin Sodium Potassium Chloride Carbon Dioxide BUN Creatinine 0.6 L Glucose 110 H POC Glucose Lactic Acid Calcium Phosphorus Magnesium AST ALT Lactate Dehydrogenase CK-MB (CK-2) C-Reactive Protein NT-Pro-B Natriuret Pep Total Protein Albumin Arterial Blood Glucose Urine WBC (Auto) 12/15/19 12/15/19 12/15/19 05:53 11:50 17:26 WBC RBC Hgb Hct MCHC RDW MCV MCH Lymph % (Auto) [place] % (Auto) [place] # Eos # Lymph # (Auto) [place] # (Auto) Eos # (Auto) Seg Neutrophils % Seg Neuts % (Manual) Baso # (Auto) Lymphocytes % (Manual) Monocytes % (Manual) Eosinophils % (Manual) Basophils % (Manual) Seg Neutrophils # Seg Neutrophils # Man Lymphocytes # (Manual) Monocytes # (Manual) Eosinophils # (Manual) Nucleated RBC % Basophils # (Manual) APTT Heparin Anti-Xa Level ABG pH POC ABG pO2 ABG pO2 ABG HCO3 ABG O2 Saturation ABG Base Excess POC ABG pCO2 ABG Hemoglobin ABG Oxyhemoglobin ABG Glucose Oxyhemoglobin Sodium Potassium Chloride Carbon Dioxide BUN Creatinine Glucose POC Glucose 119 H 132 H 128 H Lactic Acid Calcium Phosphorus Magnesium AST ALT Lactate Dehydrogenase CK-MB (CK-2) C-Reactive Protein NT-Pro-B Natriuret Pep Total Protein Albumin Arterial Blood Glucose Urine WBC (Auto) 12/15/19 12/16/19 12/16/19 23:11 05:30 05:46 WBC RBC Hgb 8.8 L Hct 27.9 L MCHC RDW MCV MCH Lymph % (Auto) [place] % (Auto) [place] # Eos # Lymph # (Auto) [place] # (Auto) Eos # (Auto) Seg Neutrophils % Seg Neuts % (Manual) Baso # (Auto) Lymphocytes % (Manual) Monocytes % (Manual) Eosinophils % (Manual) Basophils % (Manual) Seg Neutrophils # Seg Neutrophils # Man Lymphocytes # (Manual) Monocytes # (Manual) Eosinophils # (Manual) Nucleated RBC % Basophils # (Manual) APTT Heparin Anti-Xa Level ABG pH POC ABG pO2 ABG pO2 ABG HCO3 ABG O2 Saturation ABG Base Excess POC ABG pCO2 ABG Hemoglobin ABG Oxyhemoglobin ABG Glucose Oxyhemoglobin Sodium Potassium Chloride Carbon Dioxide BUN Creatinine Glucose POC Glucose 150 H 134 H Lactic Acid Calcium Phosphorus Magnesium AST ALT Lactate Dehydrogenase CK-MB (CK-2) C-Reactive Protein NT-Pro-B Natriuret Pep Total Protein Albumin Arterial Blood Glucose Urine WBC (Auto) 12/16/19 12/16/19 12/16/19 05:46 05:46 11:44 WBC RBC Hgb Hct MCHC RDW MCV MCH Lymph % (Auto) [place] % (Auto) [place] # Eos # Lymph # (Auto) [place] # (Auto) Eos # (Auto) Seg Neutrophils % Seg Neuts % (Manual) Baso # (Auto) Lymphocytes % (Manual) Monocytes % (Manual) Eosinophils % (Manual) Basophils % (Manual) Seg Neutrophils # Seg Neutrophils # Man Lymphocytes # (Manual) Monocytes # (Manual) Eosinophils # (Manual) Nucleated RBC % Basophils # (Manual) APTT Heparin Anti-Xa Level 0.20 L ABG pH POC ABG pO2 ABG pO2 ABG HCO3 ABG O2 Saturation ABG Base Excess POC ABG pCO2 ABG Hemoglobin ABG Oxyhemoglobin ABG Glucose Oxyhemoglobin Sodium Potassium Chloride Carbon Dioxide 31 H BUN Creatinine 0.5 L Glucose 147 H POC Glucose 164 H Lactic Acid Calcium Phosphorus Magnesium AST ALT Lactate Dehydrogenase CK-MB (CK-2) C-Reactive Protein NT-Pro-B Natriuret Pep Total Protein Albumin Arterial Blood Glucose Urine WBC (Auto) 12/16/19 12/16/19 12/17/19 17:17 23:49 05:30 WBC 13.9 H RBC 3.27 L Hgb 9.4 L Hct 29.2 L MCHC RDW 16.0 H MCV MCH Lymph % (Auto) [place] % (Auto) 8.8 H [place] # Eos # Lymph # (Auto) [place] # (Auto) 1.2 H Eos # (Auto) 0.5 H Seg Neutrophils % 70.5 H Seg Neuts % (Manual) Baso # (Auto) 0.2 H Lymphocytes % (Manual) Monocytes % (Manual) Eosinophils % (Manual) Basophils % (Manual) Seg Neutrophils # 9.8 H Seg Neutrophils # Man Lymphocytes # (Manual) Monocytes # (Manual) Eosinophils # (Manual) Nucleated RBC % Basophils # (Manual) APTT Heparin Anti-Xa Level ABG pH POC ABG pO2 ABG pO2 ABG HCO3 ABG O2 Saturation ABG Base Excess POC ABG pCO2 ABG Hemoglobin ABG Oxyhemoglobin ABG Glucose Oxyhemoglobin Sodium Potassium Chloride Carbon Dioxide BUN Creatinine Glucose POC Glucose 162 H 144 H Lactic Acid Calcium Phosphorus Magnesium AST ALT Lactate Dehydrogenase CK-MB (CK-2) C-Reactive Protein NT-Pro-B Natriuret Pep Total Protein Albumin Arterial Blood Glucose Urine WBC (Auto) 12/17/19 12/17/19 12/17/19 05:30 06:06 11:50 WBC RBC Hgb Hct MCHC RDW MCV MCH Lymph % (Auto) [place] % (Auto) [place] # Eos # Lymph # (Auto) [place] # (Auto) Eos # (Auto) Seg Neutrophils % Seg Neuts % (Manual) Baso # (Auto) Lymphocytes % (Manual) Monocytes % (Manual) Eosinophils % (Manual) Basophils % (Manual) Seg Neutrophils # Seg Neutrophils # Man Lymphocytes # (Manual) Monocytes # (Manual) Eosinophils # (Manual) Nucleated RBC % Basophils # (Manual) APTT Heparin Anti-Xa Level ABG pH POC ABG pO2 ABG pO2 ABG HCO3 ABG O2 Saturation ABG Base Excess POC ABG pCO2 ABG Hemoglobin ABG Oxyhemoglobin ABG Glucose Oxyhemoglobin Sodium Potassium Chloride 97.4 L Carbon Dioxide 32 H BUN Creatinine 0.5 L Glucose 135 H POC Glucose 151 H 140 H Lactic Acid Calcium Phosphorus Magnesium AST ALT Lactate Dehydrogenase CK-MB (CK-2) C-Reactive Protein NT-Pro-B Natriuret Pep Total Protein Albumin Arterial Blood Glucose Urine WBC (Auto) 12/17/19 12/17/19 12/18/19 17:50 23:46 05:17 WBC RBC Hgb 8.8 L Hct 28.0 L MCHC RDW MCV MCH Lymph % (Auto) [place] % (Auto) [place] # Eos # Lymph # (Auto) [place] # (Auto) Eos # (Auto) Seg Neutrophils % Seg Neuts % (Manual) Baso # (Auto) Lymphocytes % (Manual) Monocytes % (Manual) Eosinophils % (Manual) Basophils % (Manual) Seg Neutrophils # Seg Neutrophils # Man Lymphocytes # (Manual) Monocytes # (Manual) Eosinophils # (Manual) Nucleated RBC % Basophils # (Manual) APTT Heparin Anti-Xa Level ABG pH POC ABG pO2 ABG pO2 ABG HCO3 ABG O2 Saturation ABG Base Excess POC ABG pCO2 ABG Hemoglobin ABG Oxyhemoglobin ABG Glucose Oxyhemoglobin Sodium Potassium Chloride Carbon Dioxide BUN Creatinine Glucose POC Glucose 158 H 150 H Lactic Acid Calcium Phosphorus Magnesium AST ALT Lactate Dehydrogenase CK-MB (CK-2) C-Reactive Protein NT-Pro-B Natriuret Pep Total Protein Albumin Arterial Blood Glucose Urine WBC (Auto) 12/18/19 12/18/19 12/18/19 05:17 05:49 11:12 WBC RBC Hgb Hct MCHC RDW MCV MCH Lymph % (Auto) [place] % (Auto) [place] # Eos # Lymph # (Auto) [place] # (Auto) Eos # (Auto) Seg Neutrophils % Seg Neuts % (Manual) Baso # (Auto) Lymphocytes % (Manual) Monocytes % (Manual) Eosinophils % (Manual) Basophils % (Manual) Seg Neutrophils # Seg Neutrophils # Man Lymphocytes # (Manual) Monocytes # (Manual) Eosinophils # (Manual) Nucleated RBC % Basophils # (Manual) APTT Heparin Anti-Xa Level 0.16 L ABG pH POC ABG pO2 ABG pO2 ABG HCO3 ABG O2 Saturation ABG Base Excess POC ABG pCO2 ABG Hemoglobin ABG Oxyhemoglobin ABG Glucose Oxyhemoglobin Sodium Potassium Chloride Carbon Dioxide BUN Creatinine Glucose POC Glucose 127 H 191 H Lactic Acid Calcium Phosphorus Magnesium AST ALT Lactate Dehydrogenase CK-MB (CK-2) C-Reactive Protein NT-Pro-B Natriuret Pep Total Protein Albumin Arterial Blood Glucose Urine WBC (Auto) 12/18/19 12/18/19 12/19/19 17:03 20:16 00:08 WBC RBC Hgb Hct MCHC RDW MCV MCH Lymph % (Auto) [place] % (Auto) [place] # Eos # Lymph # (Auto) [place] # (Auto) Eos # (Auto) Seg Neutrophils % Seg Neuts % (Manual) Baso # (Auto) Lymphocytes % (Manual) Monocytes % (Manual) Eosinophils % (Manual) Basophils % (Manual) Seg Neutrophils # Seg Neutrophils # Man Lymphocytes # (Manual) Monocytes # (Manual) Eosinophils # (Manual) Nucleated RBC % Basophils # (Manual) APTT Heparin Anti-Xa Level ABG pH POC ABG pO2 ABG pO2 ABG HCO3 ABG O2 Saturation ABG Base Excess POC ABG pCO2 ABG Hemoglobin ABG Oxyhemoglobin ABG Glucose Oxyhemoglobin Sodium Potassium Chloride Carbon Dioxide BUN Creatinine Glucose POC Glucose 133 H 128 H 129 H Lactic Acid Calcium Phosphorus Magnesium AST ALT Lactate Dehydrogenase CK-MB (CK-2) C-Reactive Protein NT-Pro-B Natriuret Pep Total Protein Albumin Arterial Blood Glucose Urine WBC (Auto) 12/19/19 12/19/19 12/19/19 04:45 04:45 05:35 WBC RBC Hgb Hct MCHC RDW MCV MCH Lymph % (Auto) [place] % (Auto) [place] # Eos # Lymph # (Auto) [place] # (Auto) Eos # (Auto) Seg Neutrophils % Seg Neuts % (Manual) Baso # (Auto) Lymphocytes % (Manual) Monocytes % (Manual) Eosinophils % (Manual) Basophils % (Manual) Seg Neutrophils # Seg Neutrophils # Man Lymphocytes # (Manual) Monocytes # (Manual) Eosinophils # (Manual) Nucleated RBC % Basophils # (Manual) APTT Heparin Anti-Xa Level 0.17 L ABG pH POC ABG pO2 ABG pO2 ABG HCO3 ABG O2 Saturation ABG Base Excess POC ABG pCO2 ABG Hemoglobin ABG Oxyhemoglobin ABG Glucose Oxyhemoglobin Sodium Potassium Chloride Carbon Dioxide BUN Creatinine Glucose POC Glucose 120 H Lactic Acid Calcium Phosphorus Magnesium AST ALT Lactate Dehydrogenase 228 H CK-MB (CK-2) C-Reactive Protein NT-Pro-B Natriuret Pep Total Protein Albumin Arterial Blood Glucose Urine WBC (Auto) 12/19/19 12/19/19 12/19/19 09:20 11:32 11:32 WBC 14.6 H RBC 3.08 L Hgb 9.0 L Hct 26.8 L MCHC RDW 15.9 H MCV MCH Lymph % (Auto) [place] % (Auto) [place] # Eos # Lymph # (Auto) [place] # (Auto) Eos # (Auto) Seg Neutrophils % Seg Neuts % (Manual) 82.0 H Baso # (Auto) Lymphocytes % (Manual) 10.0 L Monocytes % (Manual) Eosinophils % (Manual) Basophils % (Manual) Seg Neutrophils # Seg Neutrophils # Man 12.0 H Lymphocytes # (Manual) Monocytes # (Manual) 0.9 H Eosinophils # (Manual) Nucleated RBC % 1.0 H Basophils # (Manual) APTT Heparin Anti-Xa Level ABG pH 7.451 H POC ABG pO2 ABG pO2 62.6 L ABG HCO3 33.2 H ABG O2 Saturation 93.8 L ABG Base Excess 8.3 H POC ABG pCO2 ABG Hemoglobin 8.3 L ABG Oxyhemoglobin ABG Glucose Oxyhemoglobin 91.9 L Sodium Potassium Chloride 95.0 L Carbon Dioxide 33 H BUN 22 H Creatinine 0.6 L Glucose 150 H POC Glucose Lactic Acid Calcium Phosphorus Magnesium AST ALT Lactate Dehydrogenase CK-MB (CK-2) C-Reactive Protein NT-Pro-B Natriuret Pep Total Protein 6.2 L Albumin 2.4 L Arterial Blood Glucose Urine WBC (Auto) 12/19/19 12/19/19 12/20/19 11:56 18:17 00:09 WBC RBC Hgb Hct MCHC RDW MCV MCH Lymph % (Auto) [place] % (Auto) [place] # Eos # Lymph # (Auto) [place] # (Auto) Eos # (Auto) Seg Neutrophils % Seg Neuts % (Manual) Baso # (Auto) Lymphocytes % (Manual) Monocytes % (Manual) Eosinophils % (Manual) Basophils % (Manual) Seg Neutrophils # Seg Neutrophils # Man Lymphocytes # (Manual) Monocytes # (Manual) Eosinophils # (Manual) Nucleated RBC % Basophils # (Manual) APTT Heparin Anti-Xa Level ABG pH POC ABG pO2 ABG pO2 ABG HCO3 ABG O2 Saturation ABG Base Excess POC ABG pCO2 ABG Hemoglobin ABG Oxyhemoglobin ABG Glucose Oxyhemoglobin Sodium Potassium Chloride Carbon Dioxide BUN Creatinine Glucose POC Glucose 156 H 156 H 155 H Lactic Acid Calcium Phosphorus Magnesium AST ALT Lactate Dehydrogenase CK-MB (CK-2) C-Reactive Protein NT-Pro-B Natriuret Pep Total Protein Albumin Arterial Blood Glucose Urine WBC (Auto) 12/20/19 12/20/19 12/20/19 05:26 06:02 18:17 WBC RBC Hgb Hct MCHC RDW MCV MCH Lymph % (Auto) [place] % (Auto) [place] # Eos # Lymph # (Auto) [place] # (Auto) Eos # (Auto) Seg Neutrophils % Seg Neuts % (Manual) Baso # (Auto) Lymphocytes % (Manual) Monocytes % (Manual) Eosinophils % (Manual) Basophils % (Manual) Seg Neutrophils # Seg Neutrophils # Man Lymphocytes # (Manual) Monocytes # (Manual) Eosinophils # (Manual) Nucleated RBC % Basophils # (Manual) APTT Heparin Anti-Xa Level 0.19 L ABG pH POC ABG pO2 ABG pO2 ABG HCO3 ABG O2 Saturation ABG Base Excess POC ABG pCO2 ABG Hemoglobin ABG Oxyhemoglobin ABG Glucose Oxyhemoglobin Sodium Potassium Chloride Carbon Dioxide BUN Creatinine Glucose POC Glucose 137 H 128 H Lactic Acid Calcium Phosphorus Magnesium AST ALT Lactate Dehydrogenase CK-MB (CK-2) C-Reactive Protein NT-Pro-B Natriuret Pep Total Protein Albumin Arterial Blood Glucose Urine WBC (Auto) 12/20/19 12/21/19 12/21/19 23:34 05:31 05:31 WBC 12.7 H RBC 3.09 L Hgb 8.9 L Hct 27.4 L MCHC RDW 15.8 H MCV MCH Lymph % (Auto) 12.1 L [place] % (Auto) 7.8 H [place] # Eos # Lymph # (Auto) [place] # (Auto) 1.0 H Eos # (Auto) Seg Neutrophils % 77.1 H Seg Neuts % (Manual) Baso # (Auto) Lymphocytes % (Manual) Monocytes % (Manual) Eosinophils % (Manual) Basophils % (Manual) Seg Neutrophils # 9.8 H Seg Neutrophils # Man Lymphocytes # (Manual) Monocytes # (Manual) Eosinophils # (Manual) Nucleated RBC % Basophils # (Manual) APTT Heparin Anti-Xa Level ABG pH POC ABG pO2 ABG pO2 ABG HCO3 ABG O2 Saturation ABG Base Excess POC ABG pCO2 ABG Hemoglobin ABG Oxyhemoglobin ABG Glucose Oxyhemoglobin Sodium Potassium Chloride 96.9 L Carbon Dioxide 37 H BUN 27 H Creatinine 0.7 L Glucose 140 H POC Glucose 145 H Lactic Acid Calcium Phosphorus Magnesium AST ALT Lactate Dehydrogenase CK-MB (CK-2) C-Reactive Protein NT-Pro-B Natriuret Pep Total Protein Albumin Arterial Blood Glucose Urine WBC (Auto) 12/21/19 12/21/19 12/21/19 05:38 10:13 11:51 WBC RBC Hgb Hct MCHC RDW MCV MCH Lymph % (Auto) [place] % (Auto) [place] # Eos # Lymph # (Auto) [place] # (Auto) Eos # (Auto) Seg Neutrophils % Seg Neuts % (Manual) Baso # (Auto) Lymphocytes % (Manual) Monocytes % (Manual) Eosinophils % (Manual) Basophils % (Manual) Seg Neutrophils # Seg Neutrophils # Man Lymphocytes # (Manual) Monocytes # (Manual) Eosinophils # (Manual) Nucleated RBC % Basophils # (Manual) APTT 23.9 L Heparin Anti-Xa Level < 0.10 L ABG pH POC ABG pO2 ABG pO2 ABG HCO3 ABG O2 Saturation ABG Base Excess POC ABG pCO2 ABG Hemoglobin ABG Oxyhemoglobin ABG Glucose Oxyhemoglobin Sodium Potassium Chloride Carbon Dioxide BUN Creatinine Glucose POC Glucose 151 H 145 H Lactic Acid Calcium Phosphorus Magnesium AST ALT Lactate Dehydrogenase CK-MB (CK-2) C-Reactive Protein NT-Pro-B Natriuret Pep Total Protein Albumin Arterial Blood Glucose Urine WBC (Auto) 12/21/19 12/22/19 12/22/19 17:16 00:01 01:33 WBC RBC Hgb Hct MCHC RDW MCV MCH Lymph % (Auto) [place] % (Auto) [place] # Eos # Lymph # (Auto) [place] # (Auto) Eos # (Auto) Seg Neutrophils % Seg Neuts % (Manual) Baso # (Auto) Lymphocytes % (Manual) Monocytes % (Manual) Eosinophils % (Manual) Basophils % (Manual) Seg Neutrophils # Seg Neutrophils # Man Lymphocytes # (Manual) Monocytes # (Manual) Eosinophils # (Manual) Nucleated RBC % Basophils # (Manual) APTT Heparin Anti-Xa Level 0.10 L ABG pH POC ABG pO2 ABG pO2 ABG HCO3 ABG O2 Saturation ABG Base Excess POC ABG pCO2 ABG Hemoglobin ABG Oxyhemoglobin ABG Glucose Oxyhemoglobin Sodium Potassium Chloride Carbon Dioxide BUN Creatinine Glucose POC Glucose 167 H 179 H Lactic Acid Calcium Phosphorus Magnesium AST ALT Lactate Dehydrogenase CK-MB (CK-2) C-Reactive Protein NT-Pro-B Natriuret Pep Total Protein Albumin Arterial Blood Glucose Urine WBC (Auto) 12/22/19 12/22/19 12/22/19 03:22 05:10 05:10 WBC 13.8 H RBC 3.20 L Hgb 8.9 L Hct 28.1 L MCHC RDW 15.9 H MCV MCH Lymph % (Auto) [place] % (Auto) [place] # Eos # Lymph # (Auto) [place] # (Auto) Eos # (Auto) Seg Neutrophils % Seg Neuts % (Manual) Baso # (Auto) Lymphocytes % (Manual) Monocytes % (Manual) Eosinophils % (Manual) Basophils % (Manual) Seg Neutrophils # Seg Neutrophils # Man Lymphocytes # (Manual) Monocytes # (Manual) Eosinophils # (Manual) Nucleated RBC % Basophils # (Manual) APTT Heparin Anti-Xa Level ABG pH POC ABG pO2 52.3 L ABG pO2 ABG HCO3 ABG O2 Saturation ABG Base Excess POC ABG pCO2 52.9 H ABG Hemoglobin 10.7 L ABG Oxyhemoglobin 84 L ABG Glucose Oxyhemoglobin Sodium Potassium Chloride 96.6 L Carbon Dioxide BUN 25 H Creatinine 0.7 L Glucose 129 H POC Glucose Lactic Acid Calcium Phosphorus Magnesium AST ALT Lactate Dehydrogenase CK-MB (CK-2) C-Reactive Protein NT-Pro-B Natriuret Pep Total Protein Albumin Arterial Blood Glucose Urine WBC (Auto) 12/22/19 12/22/19 12/22/19 05:18 12:32 12:43 WBC RBC Hgb Hct MCHC RDW MCV MCH Lymph % (Auto) [place] % (Auto) [place] # Eos # Lymph # (Auto) [place] # (Auto) Eos # (Auto) Seg Neutrophils % Seg Neuts % (Manual) Baso # (Auto) Lymphocytes % (Manual) Monocytes % (Manual) Eosinophils % (Manual) Basophils % (Manual) Seg Neutrophils # Seg Neutrophils # Man Lymphocytes # (Manual) Monocytes # (Manual) Eosinophils # (Manual) Nucleated RBC % Basophils # (Manual) APTT Heparin Anti-Xa Level 0.18 L ABG pH POC ABG pO2 ABG pO2 ABG HCO3 ABG O2 Saturation ABG Base Excess POC ABG pCO2 ABG Hemoglobin ABG Oxyhemoglobin ABG Glucose Oxyhemoglobin Sodium Potassium Chloride Carbon Dioxide BUN Creatinine Glucose POC Glucose 131 H 208 H Lactic Acid Calcium Phosphorus Magnesium AST ALT Lactate Dehydrogenase CK-MB (CK-2) C-Reactive Protein NT-Pro-B Natriuret Pep Total Protein Albumin Arterial Blood Glucose Urine WBC (Auto) 12/22/19 12/22/19 12/23/19 17:44 23:20 03:51 WBC 15.2 H RBC 3.43 L Hgb 9.6 L Hct 30.3 L MCHC RDW 15.9 H MCV MCH Lymph % (Auto) [place] % (Auto) [place] # Eos # Lymph # (Auto) [place] # (Auto) Eos # (Auto) Seg Neutrophils % Seg Neuts % (Manual) Baso # (Auto) Lymphocytes % (Manual) Monocytes % (Manual) Eosinophils % (Manual) Basophils % (Manual) Seg Neutrophils # Seg Neutrophils # Man Lymphocytes # (Manual) Monocytes # (Manual) Eosinophils # (Manual) Nucleated RBC % Basophils # (Manual) APTT Heparin Anti-Xa Level ABG pH POC ABG pO2 ABG pO2 ABG HCO3 ABG O2 Saturation ABG Base Excess POC ABG pCO2 ABG Hemoglobin ABG Oxyhemoglobin ABG Glucose Oxyhemoglobin Sodium Potassium Chloride Carbon Dioxide BUN Creatinine Glucose POC Glucose 209 H 119 H Lactic Acid Calcium Phosphorus Magnesium AST ALT Lactate Dehydrogenase CK-MB (CK-2) C-Reactive Protein NT-Pro-B Natriuret Pep Total Protein Albumin Arterial Blood Glucose Urine WBC (Auto) 12/23/19 12/23/1920 03:51 05:31 12:09 WBC RBC Hgb Hct MCHC RDW MCV MCH Lymph % (Auto) [place] % (Auto) [place] # Eos # Lymph # (Auto) [place] # (Auto) Eos # (Auto) Seg Neutrophils % Seg Neuts % (Manual) Baso # (Auto) Lymphocytes % (Manual) Monocytes % (Manual) Eosinophils % (Manual) Basophils % (Manual) Seg Neutrophils # Seg Neutrophils # Man Lymphocytes # (Manual) Monocytes # (Manual) Eosinophils # (Manual) Nucleated RBC % Basophils # (Manual) APTT Heparin Anti-Xa Level ABG pH POC ABG pO2 ABG pO2 ABG HCO3 ABG O2 Saturation ABG Base Excess POC ABG pCO2 ABG Hemoglobin ABG Oxyhemoglobin ABG Glucose Oxyhemoglobin Sodium Potassium Chloride 97.2 L Carbon Dioxide 31 H BUN 23 H Creatinine 0.6 L Glucose 153 H POC Glucose 149 H 144 H Lactic Acid Calcium Phosphorus Magnesium AST ALT Lactate Dehydrogenase CK-MB (CK-2) C-Reactive Protein NT-Pro-B Natriuret Pep Total Protein Albumin Arterial Blood Glucose Urine WBC (Auto) 12/23/19 12/23/19 12/23/19 15:30 17:49 23:31 WBC RBC Hgb Hct MCHC RDW MCV MCH Lymph % (Auto) [place] % (Auto) [place] # Eos # Lymph # (Auto) [place] # (Auto) Eos # (Auto) Seg Neutrophils % Seg Neuts % (Manual) Baso # (Auto) Lymphocytes % (Manual) Monocytes % (Manual) Eosinophils % (Manual) Basophils % (Manual) Seg Neutrophils # Seg Neutrophils # Man Lymphocytes # (Manual) Monocytes # (Manual) Eosinophils # (Manual) Nucleated RBC % Basophils # (Manual) APTT Heparin Anti-Xa Level 0.21 L ABG pH POC ABG pO2 ABG pO2 ABG HCO3 ABG O2 Saturation ABG Base Excess POC ABG pCO2 ABG Hemoglobin ABG Oxyhemoglobin ABG Glucose Oxyhemoglobin Sodium Potassium Chloride Carbon Dioxide BUN Creatinine Glucose POC Glucose 192 H 151 H Lactic Acid Calcium Phosphorus Magnesium AST ALT Lactate Dehydrogenase CK-MB (CK-2) C-Reactive Protein NT-Pro-B Natriuret Pep Total Protein Albumin Arterial Blood Glucose Urine WBC (Auto) 12/24/19 12/24/19 12/24/19 05:34 12:13 16:50 WBC RBC Hgb Hct MCHC RDW MCV MCH Lymph % (Auto) [place] % (Auto) [place] # Eos # Lymph # (Auto) [place] # (Auto) Eos # (Auto) Seg Neutrophils % Seg Neuts % (Manual) Baso # (Auto) Lymphocytes % (Manual) Monocytes % (Manual) Eosinophils % (Manual) Basophils % (Manual) Seg Neutrophils # Seg Neutrophils # Man Lymphocytes # (Manual) Monocytes # (Manual) Eosinophils # (Manual) Nucleated RBC % Basophils # (Manual) APTT Heparin Anti-Xa Level 0.16 L ABG pH POC ABG pO2 ABG pO2 ABG HCO3 ABG O2 Saturation ABG Base Excess POC ABG pCO2 ABG Hemoglobin ABG Oxyhemoglobin ABG Glucose Oxyhemoglobin Sodium Potassium Chloride Carbon Dioxide BUN Creatinine Glucose POC Glucose 145 H 124 H Lactic Acid Calcium Phosphorus Magnesium AST ALT Lactate Dehydrogenase CK-MB (CK-2) C-Reactive Protein NT-Pro-B Natriuret Pep Total Protein Albumin Arterial Blood Glucose Urine WBC (Auto) 12/24/19 12/25/19 12/25/19 17:53 00:14 04:18 WBC 12.9 H RBC 3.30 L Hgb 9.1 L Hct 28.8 L MCHC RDW 16.4 H MCV MCH Lymph % (Auto) [place] % (Auto) 7.8 H [place] # Eos # Lymph # (Auto) [place] # (Auto) 1.0 H Eos # (Auto) Seg Neutrophils % 75.5 H Seg Neuts % (Manual) Baso # (Auto) Lymphocytes % (Manual) Monocytes % (Manual) Eosinophils % (Manual) Basophils % (Manual) Seg Neutrophils # 9.7 H Seg Neutrophils # Man Lymphocytes # (Manual) Monocytes # (Manual) Eosinophils # (Manual) Nucleated RBC % Basophils # (Manual) APTT Heparin Anti-Xa Level ABG pH POC ABG pO2 ABG pO2 ABG HCO3 ABG O2 Saturation ABG Base Excess POC ABG pCO2 ABG Hemoglobin ABG Oxyhemoglobin ABG Glucose Oxyhemoglobin Sodium Potassium Chloride Carbon Dioxide BUN Creatinine Glucose POC Glucose 164 H 148 H Lactic Acid Calcium Phosphorus Magnesium AST ALT Lactate Dehydrogenase CK-MB (CK-2) C-Reactive Protein NT-Pro-B Natriuret Pep Total Protein Albumin Arterial Blood Glucose Urine WBC (Auto) 12/25/19 12/25/19 12/25/19 04:18 05:38 11:44 WBC RBC Hgb Hct MCHC RDW MCV MCH Lymph % (Auto) [place] % (Auto) [place] # Eos # Lymph # (Auto) [place] # (Auto) Eos # (Auto) Seg Neutrophils % Seg Neuts % (Manual) Baso # (Auto) Lymphocytes % (Manual) Monocytes % (Manual) Eosinophils % (Manual) Basophils % (Manual) Seg Neutrophils # Seg Neutrophils # Man Lymphocytes # (Manual) Monocytes # (Manual) Eosinophils # (Manual) Nucleated RBC % Basophils # (Manual) APTT Heparin Anti-Xa Level ABG pH POC ABG pO2 ABG pO2 ABG HCO3 ABG O2 Saturation ABG Base Excess POC ABG pCO2 ABG Hemoglobin ABG Oxyhemoglobin ABG Glucose Oxyhemoglobin Sodium Potassium Chloride Carbon Dioxide 33 H BUN 27 H Creatinine 0.6 L Glucose 132 H POC Glucose 152 H 166 H Lactic Acid Calcium Phosphorus Magnesium AST ALT Lactate Dehydrogenase CK-MB (CK-2) C-Reactive Protein NT-Pro-B Natriuret Pep Total Protein Albumin Arterial Blood Glucose Urine WBC (Auto) 12/25/19 12/26/19 12/26/19 18:29 00:17 00:18 WBC RBC Hgb Hct MCHC RDW MCV MCH Lymph % (Auto) [place] % (Auto) [place] # Eos # Lymph # (Auto) [place] # (Auto) Eos # (Auto) Seg Neutrophils % Seg Neuts % (Manual) Baso # (Auto) Lymphocytes % (Manual) Monocytes % (Manual) Eosinophils % (Manual) Basophils % (Manual) Seg Neutrophils # Seg Neutrophils # Man Lymphocytes # (Manual) Monocytes # (Manual) Eosinophils # (Manual) Nucleated RBC % Basophils # (Manual) APTT Heparin Anti-Xa Level ABG pH POC ABG pO2 ABG pO2 ABG HCO3 ABG O2 Saturation ABG Base Excess POC ABG pCO2 ABG Hemoglobin ABG Oxyhemoglobin ABG Glucose Oxyhemoglobin Sodium Potassium Chloride 97.8 L Carbon Dioxide BUN 25 H Creatinine 0.6 L Glucose 140 H POC Glucose 194 H 151 H Lactic Acid Calcium Phosphorus Magnesium AST ALT Lactate Dehydrogenase CK-MB (CK-2) C-Reactive Protein NT-Pro-B Natriuret Pep Total Protein Albumin Arterial Blood Glucose Urine WBC (Auto) 12/26/19 12/26/19 12/26/19 05:36 11:41 17:50 WBC RBC Hgb Hct MCHC RDW MCV MCH Lymph % (Auto) [place]aine % (Auto) Blaine # Eos # Lymph # (Auto) [place] # (Auto) Eos # (Auto) Seg Neutrophils % Seg Neuts % (Manual) Baso # (Auto) Lymphocytes % (Manual) Monocytes % (Manual) Eosinophils % (Manual) Basophils % (Manual) Seg Neutrophils # Seg Neutrophils # Man Lymphocytes # (Manual) Monocytes # (Manual) Eosinophils # (Manual) Nucleated RBC % Basophils # (Manual) APTT Heparin Anti-Xa Level ABG pH POC ABG pO2 ABG pO2 ABG HCO3 ABG O2 Saturation ABG Base Excess POC ABG pCO2 ABG Hemoglobin ABG Oxyhemoglobin ABG Glucose Oxyhemoglobin Sodium Potassium Chloride Carbon Dioxide BUN Creatinine Glucose POC Glucose 156 H 148 H 139 H Lactic Acid Calcium Phosphorus Magnesium AST ALT Lactate Dehydrogenase CK-MB (CK-2) C-Reactive Protein NT-Pro-B Natriuret Pep Total Protein Albumin Arterial Blood Glucose Urine WBC (Auto) 12/26/19 12/27/19 12/27/19 23:19 05:34 12:02 WBC RBC Hgb Hct MCHC RDW MCV MCH Lymph % (Auto) Blaine % (Auto) Blaine # Eos # Lymph # (Auto) [place] # (Auto) Eos # (Auto) Seg Neutrophils % Seg Neuts % (Manual) Baso # (Auto) Lymphocytes % (Manual) Monocytes % (Manual) Eosinophils % (Manual) Basophils % (Manual) Seg Neutrophils # Seg Neutrophils # Man Lymphocytes # (Manual) Monocytes # (Manual) Eosinophils # (Manual) Nucleated RBC % Basophils # (Manual) APTT Heparin Anti-Xa Level ABG pH POC ABG pO2 ABG pO2 ABG HCO3 ABG O2 Saturation ABG Base Excess POC ABG pCO2 ABG Hemoglobin ABG Oxyhemoglobin ABG Glucose Oxyhemoglobin Sodium Potassium Chloride Carbon Dioxide BUN Creatinine Glucose POC Glucose 161 H 145 H 157 H Lactic Acid Calcium Phosphorus Magnesium AST ALT Lactate Dehydrogenase CK-MB (CK-2) C-Reactive Protein NT-Pro-B Natriuret Pep Total Protein Albumin Arterial Blood Glucose Urine WBC (Auto) 12/27/19 12/27/19 12/27/19 17:35 20:11 23:00 WBC RBC Hgb Hct MCHC RDW MCV MCH Lymph % (Auto) [place] % (Auto) [place] # Eos # Lymph # (Auto) [place] # (Auto) Eos # (Auto) Seg Neutrophils % Seg Neuts % (Manual) Baso # (Auto) Lymphocytes % (Manual) Monocytes % (Manual) Eosinophils % (Manual) Basophils % (Manual) Seg Neutrophils # Seg Neutrophils # Man Lymphocytes # (Manual) Monocytes # (Manual) Eosinophils # (Manual) Nucleated RBC % Basophils # (Manual) APTT Heparin Anti-Xa Level 0.19 L ABG pH POC ABG pO2 ABG pO2 ABG HCO3 ABG O2 Saturation ABG Base Excess POC ABG pCO2 ABG Hemoglobin ABG Oxyhemoglobin ABG Glucose Oxyhemoglobin Sodium Potassium Chloride Carbon Dioxide BUN Creatinine Glucose POC Glucose 158 H 155 H Lactic Acid Calcium Phosphorus Magnesium AST ALT Lactate Dehydrogenase CK-MB (CK-2) C-Reactive Protein NT-Pro-B Natriuret Pep Total Protein Albumin Arterial Blood Glucose Urine WBC (Auto) 12/27/19 12/28/19 12/28/19 23:45 02:41 02:41 WBC 13.0 H RBC 3.48 L Hgb 9.5 L Hct 30.6 L MCHC 31 L RDW 16.6 H MCV MCH 27 L Lymph % (Auto) 13.0 L [place] % (Auto) 8.0 H [place] # Eos # Lymph # (Auto) [place] # (Auto) 1.0 H Eos # (Auto) Seg Neutrophils % 76.3 H Seg Neuts % (Manual) Baso # (Auto) Lymphocytes % (Manual) Monocytes % (Manual) Eosinophils % (Manual) Basophils % (Manual) Seg Neutrophils # 9.9 H Seg Neutrophils # Man Lymphocytes # (Manual) Monocytes # (Manual) Eosinophils # (Manual) Nucleated RBC % Basophils # (Manual) APTT Heparin Anti-Xa Level ABG pH POC ABG pO2 ABG pO2 ABG HCO3 ABG O2 Saturation ABG Base Excess POC ABG pCO2 ABG Hemoglobin ABG Oxyhemoglobin ABG Glucose Oxyhemoglobin Sodium Potassium Chloride Carbon Dioxide BUN 22 H Creatinine 0.6 L Glucose 101 H POC Glucose 130 H Lactic Acid Calcium Phosphorus Magnesium AST ALT Lactate Dehydrogenase CK-MB (CK-2) C-Reactive Protein NT-Pro-B Natriuret Pep Total Protein Albumin Arterial Blood Glucose Urine WBC (Auto) 12/28/19 12/28/19 12/28/19 06:00 12:34 18:13 WBC RBC Hgb Hct MCHC RDW MCV MCH Lymph % (Auto) [place] % (Auto) [place] # Eos # Lymph # (Auto) [place] # (Auto) Eos # (Auto) Seg Neutrophils % Seg Neuts % (Manual) Baso # (Auto) Lymphocytes % (Manual) Monocytes % (Manual) Eosinophils % (Manual) Basophils % (Manual) Seg Neutrophils # Seg Neutrophils # Man Lymphocytes # (Manual) Monocytes # (Manual) Eosinophils # (Manual) Nucleated RBC % Basophils # (Manual) APTT Heparin Anti-Xa Level ABG pH POC ABG pO2 ABG pO2 ABG HCO3 ABG O2 Saturation ABG Base Excess POC ABG pCO2 ABG Hemoglobin ABG Oxyhemoglobin ABG Glucose Oxyhemoglobin Sodium Potassium Chloride Carbon Dioxide BUN Creatinine Glucose POC Glucose 150 H 161 H 128 H Lactic Acid Calcium Phosphorus Magnesium AST ALT Lactate Dehydrogenase CK-MB (CK-2) C-Reactive Protein NT-Pro-B Natriuret Pep Total Protein Albumin Arterial Blood Glucose Urine WBC (Auto) 12/28/19 12/29/19 12/29/19 23:36 05:21 11:40 WBC RBC Hgb Hct MCHC RDW MCV MCH Lymph % (Auto) [place] % (Auto) [place] # Eos # Lymph # (Auto) [place] # (Auto) Eos # (Auto) Seg Neutrophils % Seg Neuts % (Manual) Baso # (Auto) Lymphocytes % (Manual) Monocytes % (Manual) Eosinophils % (Manual) Basophils % (Manual) Seg Neutrophils # Seg Neutrophils # Man Lymphocytes # (Manual) Monocytes # (Manual) Eosinophils # (Manual) Nucleated RBC % Basophils # (Manual) APTT Heparin Anti-Xa Level ABG pH POC ABG pO2 ABG pO2 ABG HCO3 ABG O2 Saturation ABG Base Excess POC ABG pCO2 ABG Hemoglobin ABG Oxyhemoglobin ABG Glucose Oxyhemoglobin Sodium Potassium Chloride Carbon Dioxide BUN Creatinine Glucose POC Glucose 137 H 136 H 166 H Lactic Acid Calcium Phosphorus Magnesium AST ALT Lactate Dehydrogenase CK-MB (CK-2) C-Reactive Protein NT-Pro-B Natriuret Pep Total Protein Albumin Arterial Blood Glucose Urine WBC (Auto) 12/29/19 12/29/19 12/29/19 17:23 19:21 23:38 WBC RBC Hgb Hct MCHC RDW MCV MCH Lymph % (Auto) [place] % (Auto) [place] # Eos # Lymph # (Auto) [place] # (Auto) Eos # (Auto) Seg Neutrophils % Seg Neuts % (Manual) Baso # (Auto) Lymphocytes % (Manual) Monocytes % (Manual) Eosinophils % (Manual) Basophils % (Manual) Seg Neutrophils # Seg Neutrophils # Man Lymphocytes # (Manual) Monocytes # (Manual) Eosinophils # (Manual) Nucleated RBC % Basophils # (Manual) APTT Heparin Anti-Xa Level 0.20 L ABG pH POC ABG pO2 ABG pO2 ABG HCO3 ABG O2 Saturation ABG Base Excess POC ABG pCO2 ABG Hemoglobin ABG Oxyhemoglobin ABG Glucose Oxyhemoglobin Sodium Potassium Chloride Carbon Dioxide BUN Creatinine Glucose POC Glucose 144 H 141 H Lactic Acid Calcium Phosphorus Magnesium AST ALT Lactate Dehydrogenase CK-MB (CK-2) C-Reactive Protein NT-Pro-B Natriuret Pep Total Protein Albumin Arterial Blood Glucose Urine WBC (Auto) 12/30/19 12/30/19 12/30/19 03:58 03:58 04:59 WBC RBC 3.54 L Hgb 9.8 L Hct 30.7 L MCHC RDW 16.8 H MCV MCH Lymph % (Auto) [place] % (Auto) [place] # Eos # Lymph # (Auto) [place] # (Auto) Eos # (Auto) Seg Neutrophils % Seg Neuts % (Manual) Baso # (Auto) Lymphocytes % (Manual) Monocytes % (Manual) Eosinophils % (Manual) Basophils % (Manual) Seg Neutrophils # Seg Neutrophils # Man Lymphocytes # (Manual) Monocytes # (Manual) Eosinophils # (Manual) Nucleated RBC % Basophils # (Manual) APTT Heparin Anti-Xa Level ABG pH POC ABG pO2 ABG pO2 ABG HCO3 29.8 H ABG O2 Saturation ABG Base Excess 4.8 H POC ABG pCO2 ABG Hemoglobin 11.2 L ABG Oxyhemoglobin ABG Glucose Oxyhemoglobin 93.8 L Sodium Potassium Chloride 97.8 L Carbon Dioxide BUN 26 H Creatinine Glucose 168 H POC Glucose Lactic Acid Calcium Phosphorus Magnesium AST ALT Lactate Dehydrogenase CK-MB (CK-2) C-Reactive Protein NT-Pro-B Natriuret Pep Total Protein Albumin Arterial Blood Glucose Urine WBC (Auto) 12/30/19 12/30/19 12/30/19 05:45 11:34 17:28 WBC RBC Hgb Hct MCHC RDW MCV MCH Lymph % (Auto) [place] % (Auto) [place] # Eos # Lymph # (Auto) [place] # (Auto) Eos # (Auto) Seg Neutrophils % Seg Neuts % (Manual) Baso # (Auto) Lymphocytes % (Manual) Monocytes % (Manual) Eosinophils % (Manual) Basophils % (Manual) Seg Neutrophils # Seg Neutrophils # Man Lymphocytes # (Manual) Monocytes # (Manual) Eosinophils # (Manual) Nucleated RBC % Basophils # (Manual) APTT Heparin Anti-Xa Level ABG pH POC ABG pO2 ABG pO2 ABG HCO3 ABG O2 Saturation ABG Base Excess POC ABG pCO2 ABG Hemoglobin ABG Oxyhemoglobin ABG Glucose Oxyhemoglobin Sodium Potassium Chloride Carbon Dioxide BUN Creatinine Glucose POC Glucose 163 H 180 H 150 H Lactic Acid Calcium Phosphorus Magnesium AST ALT Lactate Dehydrogenase CK-MB (CK-2) C-Reactive Protein NT-Pro-B Natriuret Pep Total Protein Albumin Arterial Blood Glucose Urine WBC (Auto) 12/30/19 12/31/19 12/31/19 23:43 04:55 05:07 WBC RBC Hgb Hct MCHC RDW MCV MCH Lymph % (Auto) [place] % (Auto) [place] # Eos # Lymph # (Auto) [place] # (Auto) Eos # (Auto) Seg Neutrophils % Seg Neuts % (Manual) Baso # (Auto) Lymphocytes % (Manual) Monocytes % (Manual) Eosinophils % (Manual) Basophils % (Manual) Seg Neutrophils # Seg Neutrophils # Man Lymphocytes # (Manual) Monocytes # (Manual) Eosinophils # (Manual) Nucleated RBC % Basophils # (Manual) APTT Heparin Anti-Xa Level ABG pH POC ABG pO2 ABG pO2 ABG HCO3 ABG O2 Saturation ABG Base Excess POC ABG pCO2 ABG Hemoglobin ABG Oxyhemoglobin ABG Glucose Oxyhemoglobin Sodium Potassium 5.6 H D Chloride Carbon Dioxide BUN 33 H Creatinine Glucose 131 H POC Glucose 142 H 134 H Lactic Acid Calcium Phosphorus Magnesium AST ALT Lactate Dehydrogenase CK-MB (CK-2) C-Reactive Protein NT-Pro-B Natriuret Pep Total Protein Albumin Arterial Blood Glucose Urine WBC (Auto) 12/31/19 12/31/19 12/31/19 11:30 17:19 17:36 WBC RBC Hgb Hct MCHC RDW MCV MCH Lymph % (Auto) [place] % (Auto) [place] # Eos # Lymph # (Auto) [place] # (Auto) Eos # (Auto) Seg Neutrophils % Seg Neuts % (Manual) Baso # (Auto) Lymphocytes % (Manual) Monocytes % (Manual) Eosinophils % (Manual) Basophils % (Manual) Seg Neutrophils # Seg Neutrophils # Man Lymphocytes # (Manual) Monocytes # (Manual) Eosinophils # (Manual) Nucleated RBC % Basophils # (Manual) APTT Heparin Anti-Xa Level ABG pH POC ABG pO2 ABG pO2 ABG HCO3 ABG O2 Saturation ABG Base Excess POC ABG pCO2 ABG Hemoglobin ABG Oxyhemoglobin ABG Glucose Oxyhemoglobin Sodium Potassium Chloride Carbon Dioxide BUN 35 H Creatinine Glucose 156 H POC Glucose 158 H 181 H Lactic Acid Calcium Phosphorus Magnesium AST ALT Lactate Dehydrogenase CK-MB (CK-2) C-Reactive Protein NT-Pro-B Natriuret Pep Total Protein Albumin Arterial Blood Glucose Urine WBC (Auto) 12/31/19 12/31/19 12/31/19 18:16 19:41 21:53 WBC RBC Hgb Hct MCHC RDW MCV MCH Lymph % (Auto) [place] % (Auto) [place] # Eos # Lymph # (Auto) [place] # (Auto) Eos # (Auto) Seg Neutrophils % Seg Neuts % (Manual) Baso # (Auto) Lymphocytes % (Manual) Monocytes % (Manual) Eosinophils % (Manual) Basophils % (Manual) Seg Neutrophils # Seg Neutrophils # Man Lymphocytes # (Manual) Monocytes # (Manual) Eosinophils # (Manual) Nucleated RBC % Basophils # (Manual) APTT Heparin Anti-Xa Level 0.20 L ABG pH POC ABG pO2 ABG pO2 ABG HCO3 ABG O2 Saturation ABG Base Excess POC ABG pCO2 ABG Hemoglobin ABG Oxyhemoglobin ABG Glucose Oxyhemoglobin Sodium Potassium Chloride Carbon Dioxide BUN 34 H Creatinine Glucose 169 H POC Glucose 141 H Lactic Acid Calcium Phosphorus Magnesium AST ALT Lactate Dehydrogenase CK-MB (CK-2) C-Reactive Protein NT-Pro-B Natriuret Pep Total Protein Albumin Arterial Blood Glucose Urine WBC (Auto) 12/31/19 01/01/20 01/01/20 23:51 05:17 10:40 WBC RBC Hgb Hct MCHC RDW MCV MCH Lymph % (Auto) [place] % (Auto) [place] # Eos # Lymph # (Auto) [place] # (Auto) Eos # (Auto) Seg Neutrophils % Seg Neuts % (Manual) Baso # (Auto) Lymphocytes % (Manual) Monocytes % (Manual) Eosinophils % (Manual) Basophils % (Manual) Seg Neutrophils # Seg Neutrophils # Man Lymphocytes # (Manual) Monocytes # (Manual) Eosinophils # (Manual) Nucleated RBC % Basophils # (Manual) APTT Heparin Anti-Xa Level ABG pH POC ABG pO2 ABG pO2 ABG HCO3 ABG O2 Saturation ABG Base Excess POC ABG pCO2 ABG Hemoglobin ABG Oxyhemoglobin ABG Glucose Oxyhemoglobin Sodium Potassium Chloride Carbon Dioxide BUN 31 H Creatinine 0.7 L Glucose 137 H POC Glucose 131 H 155 H Lactic Acid Calcium Phosphorus Magnesium AST 73 H ALT 97 H Lactate Dehydrogenase CK-MB (CK-2) C-Reactive Protein NT-Pro-B Natriuret Pep 3866 H Total Protein Albumin 2.8 L Arterial Blood Glucose Urine WBC (Auto) 01/01/20 01/01/20 01/01/20 12:26 15:33 17:53 WBC 14.3 H RBC 3.35 L Hgb 9.1 L Hct 28.8 L MCHC RDW 17.0 H MCV MCH 27 L Lymph % (Auto) 7.0 L [place] % (Auto) 7.6 H [place] # Eos # Lymph # (Auto) 1.0 L [place] # (Auto) 1.1 H Eos # (Auto) Seg Neutrophils % 83.3 H Seg Neuts % (Manual) Baso # (Auto) Lymphocytes % (Manual) Monocytes % (Manual) Eosinophils % (Manual) Basophils % (Manual) Seg Neutrophils # 12.0 H Seg Neutrophils # Man Lymphocytes # (Manual) Monocytes # (Manual) Eosinophils # (Manual) Nucleated RBC % Basophils # (Manual) APTT Heparin Anti-Xa Level ABG pH POC ABG pO2 ABG pO2 ABG HCO3 ABG O2 Saturation ABG Base Excess POC ABG pCO2 ABG Hemoglobin ABG Oxyhemoglobin ABG Glucose Oxyhemoglobin Sodium Potassium Chloride Carbon Dioxide BUN Creatinine Glucose POC Glucose 128 H 128 H Lactic Acid Calcium Phosphorus Magnesium AST ALT Lactate Dehydrogenase CK-MB (CK-2) C-Reactive Protein NT-Pro-B Natriuret Pep Total Protein Albumin Arterial Blood Glucose Urine WBC (Auto) 01/01/20 01/02/20 01/02/20 23:04 05:39 07:00 WBC RBC Hgb Hct MCHC RDW MCV MCH Lymph % (Auto) [place] % (Auto) [place] # Eos # Lymph # (Auto) [place] # (Auto) Eos # (Auto) Seg Neutrophils % Seg Neuts % (Manual) Baso # (Auto) Lymphocytes % (Manual) Monocytes % (Manual) Eosinophils % (Manual) Basophils % (Manual) Seg Neutrophils # Seg Neutrophils # Man Lymphocytes # (Manual) Monocytes # (Manual) Eosinophils # (Manual) Nucleated RBC % Basophils # (Manual) APTT Heparin Anti-Xa Level 0.13 L ABG pH POC ABG pO2 ABG pO2 ABG HCO3 ABG O2 Saturation ABG Base Excess POC ABG pCO2 ABG Hemoglobin ABG Oxyhemoglobin ABG Glucose Oxyhemoglobin Sodium Potassium Chloride Carbon Dioxide BUN Creatinine Glucose POC Glucose 120 H 169 H Lactic Acid Calcium Phosphorus Magnesium AST ALT Lactate Dehydrogenase CK-MB (CK-2) C-Reactive Protein NT-Pro-B Natriuret Pep Total Protein Albumin Arterial Blood Glucose Urine WBC (Auto) 01/02/20 01/02/20 01/02/20 12:15 14:06 17:58 WBC RBC Hgb Hct MCHC RDW MCV MCH Lymph % (Auto) [place] % (Auto) [place] # Eos # Lymph # (Auto) [place] # (Auto) Eos # (Auto) Seg Neutrophils % Seg Neuts % (Manual) Baso # (Auto) Lymphocytes % (Manual) Monocytes % (Manual) Eosinophils % (Manual) Basophils % (Manual) Seg Neutrophils # Seg Neutrophils # Man Lymphocytes # (Manual) Monocytes # (Manual) Eosinophils # (Manual) Nucleated RBC % Basophils # (Manual) APTT Heparin Anti-Xa Level < 0.10 L ABG pH POC ABG pO2 ABG pO2 ABG HCO3 ABG O2 Saturation ABG Base Excess POC ABG pCO2 ABG Hemoglobin ABG Oxyhemoglobin ABG Glucose Oxyhemoglobin Sodium Potassium Chloride Carbon Dioxide BUN Creatinine Glucose POC Glucose 190 H 198 H Lactic Acid Calcium Phosphorus Magnesium AST ALT Lactate Dehydrogenase CK-MB (CK-2) C-Reactive Protein NT-Pro-B Natriuret Pep Total Protein Albumin Arterial Blood Glucose Urine WBC (Auto) 01/02/20 01/02/20 01/03/20 21:43 23:33 05:42 WBC RBC Hgb Hct MCHC RDW MCV MCH Lymph % (Auto) [place] % (Auto) [place] # Eos # Lymph # (Auto) [place] # (Auto) Eos # (Auto) Seg Neutrophils % Seg Neuts % (Manual) Baso # (Auto) Lymphocytes % (Manual) Monocytes % (Manual) Eosinophils % (Manual) Basophils % (Manual) Seg Neutrophils # Seg Neutrophils # Man Lymphocytes # (Manual) Monocytes # (Manual) Eosinophils # (Manual) Nucleated RBC % Basophils # (Manual) APTT Heparin Anti-Xa Level 0.10 L ABG pH POC ABG pO2 ABG pO2 ABG HCO3 ABG O2 Saturation ABG Base Excess POC ABG pCO2 ABG Hemoglobin ABG Oxyhemoglobin ABG Glucose Oxyhemoglobin Sodium Potassium Chloride Carbon Dioxide BUN Creatinine Glucose POC Glucose 180 H 163 H Lactic Acid Calcium Phosphorus Magnesium AST ALT Lactate Dehydrogenase CK-MB (CK-2) C-Reactive Protein NT-Pro-B Natriuret Pep Total Protein Albumin Arterial Blood Glucose Urine WBC (Auto) 01/03/20 01/03/20 01/03/20 06:50 07:25 07:45 WBC 12.1 H RBC 3.35 L Hgb 9.0 L Hct 28.9 L MCHC 31 L RDW 16.6 H MCV MCH 27 L Lymph % (Auto) 13.0 L [place] % (Auto) 8.6 H [place] # Eos # Lymph # (Auto) [place] # (Auto) 1.0 H Eos # (Auto) Seg Neutrophils % 75.9 H Seg Neuts % (Manual) Baso # (Auto) Lymphocytes % (Manual) Monocytes % (Manual) Eosinophils % (Manual) Basophils % (Manual) Seg Neutrophils # 9.2 H Seg Neutrophils # Man Lymphocytes # (Manual) Monocytes # (Manual) Eosinophils # (Manual) Nucleated RBC % Basophils # (Manual) APTT Heparin Anti-Xa Level 0.29 L ABG pH POC ABG pO2 ABG pO2 ABG HCO3 ABG O2 Saturation ABG Base Excess POC ABG pCO2 ABG Hemoglobin ABG Oxyhemoglobin ABG Glucose Oxyhemoglobin Sodium Potassium 3.3 L D Chloride Carbon Dioxide 35 H D BUN 23 H Creatinine 0.6 L Glucose 149 H POC Glucose Lactic Acid Calcium Phosphorus Magnesium AST ALT 88 H Lactate Dehydrogenase CK-MB (CK-2) C-Reactive Protein NT-Pro-B Natriuret Pep Total Protein 6.2 L Albumin 2.9 L Arterial Blood Glucose Urine WBC (Auto) 01/03/20 01/03/20 01/03/20 12:05 17:42 18:30 WBC RBC Hgb Hct MCHC RDW MCV MCH Lymph % (Auto) [place] % (Auto) [place] # Eos # Lymph # (Auto) [place] # (Auto) Eos # (Auto) Seg Neutrophils % Seg Neuts % (Manual) Baso # (Auto) Lymphocytes % (Manual) Monocytes % (Manual) Eosinophils % (Manual) Basophils % (Manual) Seg Neutrophils # Seg Neutrophils # Man Lymphocytes # (Manual) Monocytes # (Manual) Eosinophils # (Manual) Nucleated RBC % Basophils # (Manual) APTT Heparin Anti-Xa Level ABG pH POC ABG pO2 ABG pO2 70.7 L ABG HCO3 36.1 H ABG O2 Saturation 94.4 L ABG Base Excess 10.0 H POC ABG pCO2 ABG Hemoglobin 9.7 L ABG Oxyhemoglobin ABG Glucose Oxyhemoglobin 91.8 L Sodium Potassium Chloride Carbon Dioxide BUN Creatinine Glucose POC Glucose 128 H 132 H Lactic Acid Calcium Phosphorus Magnesium AST ALT Lactate Dehydrogenase CK-MB (CK-2) C-Reactive Protein NT-Pro-B Natriuret Pep Total Protein Albumin Arterial Blood Glucose Urine WBC (Auto) 01/04/20 01/04/20 01/04/20 00:10 04:26 05:23 WBC RBC Hgb Hct MCHC RDW MCV MCH Lymph % (Auto) [place] % (Auto) [place] # Eos # Lymph # (Auto) [place] # (Auto) Eos # (Auto) Seg Neutrophils % Seg Neuts % (Manual) Baso # (Auto) Lymphocytes % (Manual) Monocytes % (Manual) Eosinophils % (Manual) Basophils % (Manual) Seg Neutrophils # Seg Neutrophils # Man Lymphocytes # (Manual) Monocytes # (Manual) Eosinophils # (Manual) Nucleated RBC % Basophils # (Manual) APTT Heparin Anti-Xa Level 0.16 L ABG pH POC ABG pO2 ABG pO2 ABG HCO3 ABG O2 Saturation ABG Base Excess POC ABG pCO2 ABG Hemoglobin ABG Oxyhemoglobin ABG Glucose Oxyhemoglobin Sodium Potassium Chloride Carbon Dioxide BUN Creatinine Glucose POC Glucose 121 H 119 H Lactic Acid Calcium Phosphorus Magnesium AST ALT Lactate Dehydrogenase CK-MB (CK-2) C-Reactive Protein NT-Pro-B Natriuret Pep Total Protein Albumin Arterial Blood Glucose Urine WBC (Auto) 01/04/20 01/04/20 01/04/20 09:50 09:50 12:18 WBC 15.4 H RBC 3.30 L Hgb 8.7 L Hct 28.2 L MCHC 31 L RDW 17.0 H MCV MCH 26 L Lymph % (Auto) [place] % (Auto) 7.6 H [place] # Eos # Lymph # (Auto) [place] # (Auto) 1.2 H Eos # (Auto) Seg Neutrophils % 75.4 H Seg Neuts % (Manual) Baso # (Auto) Lymphocytes % (Manual) Monocytes % (Manual) Eosinophils % (Manual) Basophils % (Manual) Seg Neutrophils # 11.6 H Seg Neutrophils # Man Lymphocytes # (Manual) Monocytes # (Manual) Eosinophils # (Manual) Nucleated RBC % Basophils # (Manual) APTT Heparin Anti-Xa Level ABG pH POC ABG pO2 ABG pO2 ABG HCO3 ABG O2 Saturation ABG Base Excess POC ABG pCO2 ABG Hemoglobin ABG Oxyhemoglobin ABG Glucose Oxyhemoglobin Sodium 148 H Potassium 3.5 L Chloride Carbon Dioxide 32 H BUN Creatinine 0.6 L Glucose 114 H POC Glucose 111 H Lactic Acid Calcium Phosphorus Magnesium AST ALT 59 H Lactate Dehydrogenase CK-MB (CK-2) C-Reactive Protein NT-Pro-B Natriuret Pep Total Protein Albumin 2.6 L Arterial Blood Glucose Urine WBC (Auto) 01/05/20 01/05/20 01/05/20 04:05 04:05 05:19 WBC 11.7 H RBC 3.50 L Hgb 9.3 L Hct 29.9 L MCHC 31 L RDW 16.6 H MCV MCH 27 L Lymph % (Auto) 13.1 L [place] % (Auto) 9.7 H [place] # Eos # Lymph # (Auto) [place] # (Auto) 1.1 H Eos # (Auto) Seg Neutrophils % 74.0 H Seg Neuts % (Manual) Baso # (Auto) Lymphocytes % (Manual) Monocytes % (Manual) Eosinophils % (Manual) Basophils % (Manual) Seg Neutrophils # 8.6 H Seg Neutrophils # Man Lymphocytes # (Manual) Monocytes # (Manual) Eosinophils # (Manual) Nucleated RBC % Basophils # (Manual) APTT Heparin Anti-Xa Level ABG pH POC ABG pO2 ABG pO2 ABG HCO3 ABG O2 Saturation ABG Base Excess POC ABG pCO2 ABG Hemoglobin ABG Oxyhemoglobin ABG Glucose Oxyhemoglobin Sodium 151 H Potassium Chloride Carbon Dioxide 34 H BUN Creatinine 0.7 L Glucose POC Glucose 112 H Lactic Acid Calcium Phosphorus Magnesium AST ALT 59 H Lactate Dehydrogenase CK-MB (CK-2) C-Reactive Protein NT-Pro-B Natriuret Pep Total Protein 5.8 L Albumin 2.6 L Arterial Blood Glucose Urine WBC (Auto) 01/05/20 01/06/20 01/06/20 16:04 00:23 04:44 WBC RBC 3.36 L Hgb 8.9 L Hct 28.7 L MCHC 31 L RDW 16.9 H MCV MCH 26 L Lymph % (Auto) [place] % (Auto) 9.4 H [place] # Eos # Lymph # (Auto) [place] # (Auto) Eos # (Auto) Seg Neutrophils % Seg Neuts % (Manual) Baso # (Auto) Lymphocytes % (Manual) Monocytes % (Manual) Eosinophils % (Manual) Basophils % (Manual) Seg Neutrophils # Seg Neutrophils # Man Lymphocytes # (Manual) Monocytes # (Manual) Eosinophils # (Manual) Nucleated RBC % Basophils # (Manual) APTT Heparin Anti-Xa Level ABG pH POC ABG pO2 ABG pO2 ABG HCO3 ABG O2 Saturation ABG Base Excess POC ABG pCO2 ABG Hemoglobin ABG Oxyhemoglobin ABG Glucose Oxyhemoglobin Sodium 151 H Potassium 3.2 L Chloride Carbon Dioxide 34 H BUN Creatinine 0.6 L Glucose POC Glucose 107 H Lactic Acid Calcium Phosphorus Magnesium AST ALT Lactate Dehydrogenase CK-MB (CK-2) C-Reactive Protein NT-Pro-B Natriuret Pep Total Protein Albumin Arterial Blood Glucose Urine WBC (Auto) 01/06/20 01/06/20 01/06/20 04:44 05:33 12:04 WBC RBC Hgb Hct MCHC RDW MCV MCH Lymph % (Auto) [place] % (Auto) [place] # Eos # Lymph # (Auto) [place] # (Auto) Eos # (Auto) Seg Neutrophils % Seg Neuts % (Manual) Baso # (Auto) Lymphocytes % (Manual) Monocytes % (Manual) Eosinophils % (Manual) Basophils % (Manual) Seg Neutrophils # Seg Neutrophils # Man Lymphocytes # (Manual) Monocytes # (Manual) Eosinophils # (Manual) Nucleated RBC % Basophils # (Manual) APTT Heparin Anti-Xa Level ABG pH POC ABG pO2 ABG pO2 ABG HCO3 ABG O2 Saturation ABG Base Excess POC ABG pCO2 ABG Hemoglobin ABG Oxyhemoglobin ABG Glucose Oxyhemoglobin Sodium 151 H Potassium 3.4 L Chloride Carbon Dioxide 33 H BUN Creatinine 0.6 L Glucose 118 H POC Glucose 118 H 123 H Lactic Acid Calcium Phosphorus Magnesium AST ALT Lactate Dehydrogenase CK-MB (CK-2) C-Reactive Protein NT-Pro-B Natriuret Pep Total Protein 6.2 L Albumin 2.6 L Arterial Blood Glucose Urine WBC (Auto) 01/06/20 01/07/20 01/07/20 17:54 00:06 04:10 WBC RBC 3.42 L Hgb 8.9 L Hct 29.0 L MCHC 31 L RDW 17.1 H MCV MCH 26 L Lymph % (Auto) [place] % (Auto) 8.4 H [place] # Eos # Lymph # (Auto) [place] # (Auto) Eos # (Auto) Seg Neutrophils % Seg Neuts % (Manual) Baso # (Auto) Lymphocytes % (Manual) Monocytes % (Manual) Eosinophils % (Manual) Basophils % (Manual) Seg Neutrophils # Seg Neutrophils # Man Lymphocytes # (Manual) Monocytes # (Manual) Eosinophils # (Manual) Nucleated RBC % Basophils # (Manual) APTT Heparin Anti-Xa Level ABG pH POC ABG pO2 ABG pO2 ABG HCO3 ABG O2 Saturation ABG Base Excess POC ABG pCO2 ABG Hemoglobin ABG Oxyhemoglobin ABG Glucose Oxyhemoglobin Sodium Potassium Chloride Carbon Dioxide BUN Creatinine Glucose POC Glucose 112 H 126 H Lactic Acid Calcium Phosphorus Magnesium AST ALT Lactate Dehydrogenase CK-MB (CK-2) C-Reactive Protein NT-Pro-B Natriuret Pep Total Protein Albumin Arterial Blood Glucose Urine WBC (Auto) 01/07/20 01/07/20 01/07/20 04:10 05:59 12:27 WBC RBC Hgb Hct MCHC RDW MCV MCH Lymph % (Auto) [place] % (Auto) [place] # Eos # Lymph # (Auto) [place] # (Auto) Eos # (Auto) Seg Neutrophils % Seg Neuts % (Manual) Baso # (Auto) Lymphocytes % (Manual) Monocytes % (Manual) Eosinophils % (Manual) Basophils % (Manual) Seg Neutrophils # Seg Neutrophils # Man Lymphocytes # (Manual) Monocytes # (Manual) Eosinophils # (Manual) Nucleated RBC % Basophils # (Manual) APTT Heparin Anti-Xa Level ABG pH POC ABG pO2 ABG pO2 ABG HCO3 ABG O2 Saturation ABG Base Excess POC ABG pCO2 ABG Hemoglobin ABG Oxyhemoglobin ABG Glucose Oxyhemoglobin Sodium 153 H Potassium 3.5 L Chloride Carbon Dioxide 34 H BUN Creatinine 0.6 L Glucose 121 H POC Glucose 121 H 126 H Lactic Acid Calcium Phosphorus Magnesium AST ALT Lactate Dehydrogenase CK-MB (CK-2) C-Reactive Protein NT-Pro-B Natriuret Pep Total Protein 5.9 L Albumin 2.4 L Arterial Blood Glucose Urine WBC (Auto) 01/07/20 01/08/20 01/08/20 18:12 00:03 05:41 WBC RBC Hgb Hct MCHC RDW MCV MCH Lymph % (Auto) Blaine % (Auto) Blaine # Eos # Lymph # (Auto) [place] # (Auto) Eos # (Auto) Seg Neutrophils % Seg Neuts % (Manual) Baso # (Auto) Lymphocytes % (Manual) Monocytes % (Manual) Eosinophils % (Manual) Basophils % (Manual) Seg Neutrophils # Seg Neutrophils # Man Lymphocytes # (Manual) Monocytes # (Manual) Eosinophils # (Manual) Nucleated RBC % Basophils # (Manual) APTT Heparin Anti-Xa Level ABG pH POC ABG pO2 ABG pO2 ABG HCO3 ABG O2 Saturation ABG Base Excess POC ABG pCO2 ABG Hemoglobin ABG Oxyhemoglobin ABG Glucose Oxyhemoglobin Sodium Potassium Chloride Carbon Dioxide BUN Creatinine Glucose POC Glucose 124 H 130 H 138 H Lactic Acid Calcium Phosphorus Magnesium AST ALT Lactate Dehydrogenase CK-MB (CK-2) C-Reactive Protein NT-Pro-B Natriuret Pep Total Protein Albumin Arterial Blood Glucose Urine WBC (Auto) 01/08/20 01/08/20 01/08/20 09:28 11:42 18:21 WBC RBC Hgb Hct MCHC RDW MCV MCH Lymph % (Auto) Blaine % (Auto) Blaine # Eos # Lymph # (Auto) [place] # (Auto) Eos # (Auto) Seg Neutrophils % Seg Neuts % (Manual) Baso # (Auto) Lymphocytes % (Manual) Monocytes % (Manual) Eosinophils % (Manual) Basophils % (Manual) Seg Neutrophils # Seg Neutrophils # Man Lymphocytes # (Manual) Monocytes # (Manual) Eosinophils # (Manual) Nucleated RBC % Basophils # (Manual) APTT Heparin Anti-Xa Level ABG pH POC ABG pO2 ABG pO2 ABG HCO3 ABG O2 Saturation ABG Base Excess POC ABG pCO2 ABG Hemoglobin ABG Oxyhemoglobin ABG Glucose Oxyhemoglobin Sodium Potassium Chloride Carbon Dioxide BUN Creatinine Glucose POC Glucose 181 H 150 H 129 H Lactic Acid Calcium Phosphorus Magnesium AST ALT Lactate Dehydrogenase CK-MB (CK-2) C-Reactive Protein NT-Pro-B Natriuret Pep Total Protein Albumin Arterial Blood Glucose Urine WBC (Auto) 01/08/20 01/08/20 01/09/20 19:25 23:55 04:11 WBC RBC 3.43 L Hgb 8.9 L Hct 28.7 L MCHC 31 L RDW 17.6 H MCV MCH 26 L Lymph % (Auto) [place] % (Auto) 8.6 H [place] # Eos # Lymph # (Auto) [place] # (Auto) Eos # (Auto) Seg Neutrophils % Seg Neuts % (Manual) Baso # (Auto) Lymphocytes % (Manual) Monocytes % (Manual) Eosinophils % (Manual) Basophils % (Manual) Seg Neutrophils # Seg Neutrophils # Man Lymphocytes # (Manual) Monocytes # (Manual) Eosinophils # (Manual) Nucleated RBC % Basophils # (Manual) APTT Heparin Anti-Xa Level ABG pH POC ABG pO2 ABG pO2 ABG HCO3 ABG O2 Saturation ABG Base Excess POC ABG pCO2 ABG Hemoglobin ABG Oxyhemoglobin ABG Glucose Oxyhemoglobin Sodium Potassium Chloride Carbon Dioxide BUN Creatinine 0.7 L Glucose 117 H POC Glucose 132 H Lactic Acid Calcium Phosphorus Magnesium AST ALT Lactate Dehydrogenase CK-MB (CK-2) C-Reactive Protein NT-Pro-B Natriuret Pep Total Protein Albumin Arterial Blood Glucose Urine WBC (Auto) 01/09/20 01/09/20 01/09/20 04:11 05:38 22:58 WBC RBC Hgb Hct MCHC RDW MCV MCH Lymph % (Auto) [place] % (Auto) [place] # Eos # Lymph # (Auto) [place] # (Auto) Eos # (Auto) Seg Neutrophils % Seg Neuts % (Manual) Baso # (Auto) Lymphocytes % (Manual) Monocytes % (Manual) Eosinophils % (Manual) Basophils % (Manual) Seg Neutrophils # Seg Neutrophils # Man Lymphocytes # (Manual) Monocytes # (Manual) Eosinophils # (Manual) Nucleated RBC % Basophils # (Manual) APTT Heparin Anti-Xa Level ABG pH POC ABG pO2 ABG pO2 ABG HCO3 ABG O2 Saturation ABG Base Excess POC ABG pCO2 ABG Hemoglobin ABG Oxyhemoglobin ABG Glucose Oxyhemoglobin Sodium 147 H Potassium 3.3 L D Chloride Carbon Dioxide 32 H BUN Creatinine 0.6 L Glucose 106 H POC Glucose 107 H 113 H Lactic Acid Calcium Phosphorus Magnesium AST ALT Lactate Dehydrogenase CK-MB (CK-2) C-Reactive Protein NT-Pro-B Natriuret Pep Total Protein Albumin Arterial Blood Glucose Urine WBC (Auto) 01/10/20 01/10/20 01/10/20 04:05 11:36 17:54 WBC RBC Hgb Hct MCHC RDW MCV MCH Lymph % (Auto) [place] % (Auto) [place] # Eos # Lymph # (Auto) [place] # (Auto) Eos # (Auto) Seg Neutrophils % Seg Neuts % (Manual) Baso # (Auto) Lymphocytes % (Manual) Monocytes % (Manual) Eosinophils % (Manual) Basophils % (Manual) Seg Neutrophils # Seg Neutrophils # Man Lymphocytes # (Manual) Monocytes # (Manual) Eosinophils # (Manual) Nucleated RBC % Basophils # (Manual) APTT Heparin Anti-Xa Level ABG pH POC ABG pO2 ABG pO2 ABG HCO3 ABG O2 Saturation ABG Base Excess POC ABG pCO2 ABG Hemoglobin ABG Oxyhemoglobin ABG Glucose Oxyhemoglobin Sodium Potassium Chloride Carbon Dioxide BUN Creatinine 0.7 L Glucose 110 H POC Glucose 129 H 117 H Lactic Acid Calcium Phosphorus Magnesium AST ALT Lactate Dehydrogenase CK-MB (CK-2) C-Reactive Protein NT-Pro-B Natriuret Pep Total Protein Albumin Arterial Blood Glucose Urine WBC (Auto) 01/10/20 01/11/20 01/11/20 23:52 03:19 12:09 WBC RBC Hgb Hct MCHC RDW MCV MCH Lymph % (Auto) [place] % (Auto) [place] # Eos # Lymph # (Auto) [place] # (Auto) Eos # (Auto) Seg Neutrophils % Seg Neuts % (Manual) Baso # (Auto) Lymphocytes % (Manual) Monocytes % (Manual) Eosinophils % (Manual) Basophils % (Manual) Seg Neutrophils # Seg Neutrophils # Man Lymphocytes # (Manual) Monocytes # (Manual) Eosinophils # (Manual) Nucleated RBC % Basophils # (Manual) APTT Heparin Anti-Xa Level ABG pH POC ABG pO2 ABG pO2 ABG HCO3 ABG O2 Saturation ABG Base Excess POC ABG pCO2 ABG Hemoglobin ABG Oxyhemoglobin ABG Glucose Oxyhemoglobin Sodium Potassium Chloride Carbon Dioxide BUN Creatinine Glucose POC Glucose 117 H 136 H 115 H Lactic Acid Calcium Phosphorus Magnesium AST ALT Lactate Dehydrogenase CK-MB (CK-2) C-Reactive Protein NT-Pro-B Natriuret Pep Total Protein Albumin Arterial Blood Glucose Urine WBC (Auto) 01/11/20 01/11/20 01/12/20 18:27 23:28 00:23 WBC RBC Hgb 9.8 L Hct 31.6 L MCHC 31 L RDW 17.8 H MCV 83 L MCH 26 L Lymph % (Auto) [place] % (Auto) 8.0 H [place] # Eos # Lymph # (Auto) [place] # (Auto) Eos # (Auto) Seg Neutrophils % Seg Neuts % (Manual) Baso # (Auto) Lymphocytes % (Manual) Monocytes % (Manual) Eosinophils % (Manual) Basophils % (Manual) Seg Neutrophils # Seg Neutrophils # Man Lymphocytes # (Manual) Monocytes # (Manual) Eosinophils # (Manual) Nucleated RBC % Basophils # (Manual) APTT Heparin Anti-Xa Level ABG pH POC ABG pO2 ABG pO2 ABG HCO3 ABG O2 Saturation ABG Base Excess POC ABG pCO2 ABG Hemoglobin ABG Oxyhemoglobin ABG Glucose Oxyhemoglobin Sodium Potassium Chloride Carbon Dioxide BUN Creatinine Glucose POC Glucose 118 H 122 H Lactic Acid Calcium Phosphorus Magnesium AST ALT Lactate Dehydrogenase CK-MB (CK-2) C-Reactive Protein NT-Pro-B Natriuret Pep Total Protein Albumin Arterial Blood Glucose Urine WBC (Auto) 01/12/20 01/12/20 01/12/20 00:23 04:18 04:18 WBC RBC Hgb 9.6 L Hct 30.9 L MCHC 31 L RDW 17.3 H MCV 81 L MCH 25 L Lymph % (Auto) [place] % (Auto) [place] # Eos # Lymph # (Auto) [place] # (Auto) Eos # (Auto) Seg Neutrophils % Seg Neuts % (Manual) Baso # (Auto) Lymphocytes % (Manual) Monocytes % (Manual) Eosinophils % (Manual) Basophils % (Manual) Seg Neutrophils # Seg Neutrophils # Man Lymphocytes # (Manual) Monocytes # (Manual) Eosinophils # (Manual) Nucleated RBC % Basophils # (Manual) APTT Heparin Anti-Xa Level ABG pH POC ABG pO2 ABG pO2 ABG HCO3 ABG O2 Saturation ABG Base Excess POC ABG pCO2 ABG Hemoglobin ABG Oxyhemoglobin ABG Glucose Oxyhemoglobin Sodium Potassium Chloride Carbon Dioxide BUN Creatinine 0.7 L 0.7 L Glucose 111 H 108 H POC Glucose Lactic Acid Calcium Phosphorus Magnesium AST ALT Lactate Dehydrogenase CK-MB (CK-2) C-Reactive Protein NT-Pro-B Natriuret Pep Total Protein Albumin 2.6 L Arterial Blood Glucose Urine WBC (Auto) 01/12/20 01/12/20 01/12/20 06:03 12:27 13:58 WBC RBC Hgb Hct MCHC RDW MCV MCH Lymph % (Auto) [place] % (Auto) [place] # Eos # Lymph # (Auto) [place] # (Auto) Eos # (Auto) Seg Neutrophils % Seg Neuts % (Manual) Baso # (Auto) Lymphocytes % (Manual) Monocytes % (Manual) Eosinophils % (Manual) Basophils % (Manual) Seg Neutrophils # Seg Neutrophils # Man Lymphocytes # (Manual) Monocytes # (Manual) Eosinophils # (Manual) Nucleated RBC % Basophils # (Manual) APTT Heparin Anti-Xa Level ABG pH 7.453 H POC ABG pO2 76.6 L ABG pO2 ABG HCO3 ABG O2 Saturation ABG Base Excess POC ABG pCO2 ABG Hemoglobin 10.3 L ABG Oxyhemoglobin ABG Glucose 99 H Oxyhemoglobin Sodium Potassium Chloride Carbon Dioxide BUN Creatinine Glucose POC Glucose 128 H 121 H Lactic Acid Calcium Phosphorus Magnesium AST ALT Lactate Dehydrogenase CK-MB (CK-2) C-Reactive Protein NT-Pro-B Natriuret Pep Total Protein Albumin Arterial Blood Glucose 99 H Urine WBC (Auto) 01/12/20 01/13/20 01/13/20 18:24 12:01 17:46 WBC RBC Hgb Hct MCHC RDW MCV MCH Lymph % (Auto) [place] % (Auto) [place] # Eos # Lymph # (Auto) [place] # (Auto) Eos # (Auto) Seg Neutrophils % Seg Neuts % (Manual) Baso # (Auto) Lymphocytes % (Manual) Monocytes % (Manual) Eosinophils % (Manual) Basophils % (Manual) Seg Neutrophils # Seg Neutrophils # Man Lymphocytes # (Manual) Monocytes # (Manual) Eosinophils # (Manual) Nucleated RBC % Basophils # (Manual) APTT Heparin Anti-Xa Level ABG pH POC ABG pO2 ABG pO2 ABG HCO3 ABG O2 Saturation ABG Base Excess POC ABG pCO2 ABG Hemoglobin ABG Oxyhemoglobin ABG Glucose Oxyhemoglobin Sodium Potassium Chloride Carbon Dioxide BUN Creatinine Glucose POC Glucose 119 H 107 H 124 H Lactic Acid Calcium Phosphorus Magnesium AST ALT Lactate Dehydrogenase CK-MB (CK-2) C-Reactive Protein NT-Pro-B Natriuret Pep Total Protein Albumin Arterial Blood Glucose Urine WBC (Auto) 01/13/20 01/14/20 01/14/20 20:40 00:10 05:33 WBC RBC Hgb Hct MCHC RDW MCV MCH Lymph % (Auto) [place] % (Auto) [place] # Eos # Lymph # (Auto) [place] # (Auto) Eos # (Auto) Seg Neutrophils % Seg Neuts % (Manual) Baso # (Auto) Lymphocytes % (Manual) Monocytes % (Manual) Eosinophils % (Manual) Basophils % (Manual) Seg Neutrophils # Seg Neutrophils # Man Lymphocytes # (Manual) Monocytes # (Manual) Eosinophils # (Manual) Nucleated RBC % Basophils # (Manual) APTT Heparin Anti-Xa Level ABG pH POC ABG pO2 ABG pO2 65.3 L ABG HCO3 31.8 H ABG O2 Saturation 93.5 L ABG Base Excess 6.7 H POC ABG pCO2 ABG Hemoglobin 13.3 L ABG Oxyhemoglobin ABG Glucose Oxyhemoglobin 90.9 L Sodium Potassium Chloride Carbon Dioxide BUN Creatinine Glucose POC Glucose 111 H 111 H Lactic Acid Calcium Phosphorus Magnesium AST ALT Lactate Dehydrogenase CK-MB (CK-2) C-Reactive Protein NT-Pro-B Natriuret Pep Total Protein Albumin Arterial Blood Glucose Urine WBC (Auto) 01/14/20 01/14/20 01/14/20 12:10 16:14 16:14 WBC RBC Hgb 10.6 L Hct 34.2 L MCHC 31 L RDW 18.3 H MCV 83 L MCH 26 L Lymph % (Auto) [place] % (Auto) 7.4 H [place] # Eos # Lymph # (Auto) [place] # (Auto) Eos # (Auto) Seg Neutrophils % 71.9 H Seg Neuts % (Manual) Baso # (Auto) Lymphocytes % (Manual) Monocytes % (Manual) Eosinophils % (Manual) Basophils % (Manual) Seg Neutrophils # Seg Neutrophils # Man Lymphocytes # (Manual) Monocytes # (Manual) Eosinophils # (Manual) Nucleated RBC % Basophils # (Manual) APTT Heparin Anti-Xa Level ABG pH POC ABG pO2 ABG pO2 ABG HCO3 ABG O2 Saturation ABG Base Excess POC ABG pCO2 ABG Hemoglobin ABG Oxyhemoglobin ABG Glucose Oxyhemoglobin Sodium Potassium Chloride Carbon Dioxide 31 H BUN Creatinine 0.6 L Glucose 131 H POC Glucose 139 H Lactic Acid Calcium Phosphorus Magnesium AST ALT Lactate Dehydrogenase CK-MB (CK-2) C-Reactive Protein NT-Pro-B Natriuret Pep Total Protein Albumin Arterial Blood Glucose Urine WBC (Auto) 01/14/20 01/15/20 01/15/20 18:05 00:52 05:35 WBC RBC Hgb Hct MCHC RDW MCV MCH Lymph % (Auto) [place] % (Auto) [place] # Eos # Lymph # (Auto) [place] # (Auto) Eos # (Auto) Seg Neutrophils % Seg Neuts % (Manual) Baso # (Auto) Lymphocytes % (Manual) Monocytes % (Manual) Eosinophils % (Manual) Basophils % (Manual) Seg Neutrophils # Seg Neutrophils # Man Lymphocytes # (Manual) Monocytes # (Manual) Eosinophils # (Manual) Nucleated RBC % Basophils # (Manual) APTT Heparin Anti-Xa Level ABG pH POC ABG pO2 ABG pO2 ABG HCO3 ABG O2 Saturation ABG Base Excess POC ABG pCO2 ABG Hemoglobin ABG Oxyhemoglobin ABG Glucose Oxyhemoglobin Sodium Potassium Chloride Carbon Dioxide BUN Creatinine Glucose POC Glucose 147 H 140 H 159 H Lactic Acid Calcium Phosphorus Magnesium AST ALT Lactate Dehydrogenase CK-MB (CK-2) C-Reactive Protein NT-Pro-B Natriuret Pep Total Protein Albumin Arterial Blood Glucose Urine WBC (Auto) 01/15/20 01/15/20 01/16/20 12:52 17:43 00:32 WBC RBC Hgb Hct MCHC RDW MCV MCH Lymph % (Auto) [place] % (Auto) [place] # Eos # Lymph # (Auto) [place] # (Auto) Eos # (Auto) Seg Neutrophils % Seg Neuts % (Manual) Baso # (Auto) Lymphocytes % (Manual) Monocytes % (Manual) Eosinophils % (Manual) Basophils % (Manual) Seg Neutrophils # Seg Neutrophils # Man Lymphocytes # (Manual) Monocytes # (Manual) Eosinophils # (Manual) Nucleated RBC % Basophils # (Manual) APTT Heparin Anti-Xa Level ABG pH POC ABG pO2 ABG pO2 ABG HCO3 ABG O2 Saturation ABG Base Excess POC ABG pCO2 ABG Hemoglobin ABG Oxyhemoglobin ABG Glucose Oxyhemoglobin Sodium Potassium Chloride Carbon Dioxide BUN Creatinine Glucose POC Glucose 164 H 167 H 153 H Lactic Acid Calcium Phosphorus Magnesium AST ALT Lactate Dehydrogenase CK-MB (CK-2) C-Reactive Protein NT-Pro-B Natriuret Pep Total Protein Albumin Arterial Blood Glucose Urine WBC (Auto) 01/16/20 01/16/20 01/17/20 05:46 11:48 06:38 WBC RBC Hgb Hct MCHC RDW MCV MCH Lymph % (Auto) [place] % (Auto) [place] # Eos # Lymph # (Auto) [place] # (Auto) Eos # (Auto) Seg Neutrophils % Seg Neuts % (Manual) Baso # (Auto) Lymphocytes % (Manual) Monocytes % (Manual) Eosinophils % (Manual) Basophils % (Manual) Seg Neutrophils # Seg Neutrophils # Man Lymphocytes # (Manual) Monocytes # (Manual) Eosinophils # (Manual) Nucleated RBC % Basophils # (Manual) APTT Heparin Anti-Xa Level ABG pH POC ABG pO2 ABG pO2 ABG HCO3 ABG O2 Saturation ABG Base Excess POC ABG pCO2 ABG Hemoglobin ABG Oxyhemoglobin ABG Glucose Oxyhemoglobin Sodium Potassium Chloride Carbon Dioxide BUN Creatinine Glucose POC Glucose 163 H 155 H 116 H Lactic Acid Calcium Phosphorus Magnesium AST ALT Lactate Dehydrogenase CK-MB (CK-2) C-Reactive Protein NT-Pro-B Natriuret Pep Total Protein Albumin Arterial Blood Glucose Urine WBC (Auto) Chest x-ray: pending Allied health notes reviewed: nursing
--- NOTE | 2020-01-17 13:11 | XRay Report ---
XR chest 1V ap INDICATION / CLINICAL INFORMATION: aspiration. COMPARISON: 01/08/2020 FINDINGS: SUPPORT DEVICES: Tracheostomy is unchanged. Enteric tube has been removed. HEART / MEDIASTINUM: Unchanged. LUNGS / PLEURA: Persistent bilateral airspace disease which is not simply changed. No pneumothorax. ADDITIONAL FINDINGS: No significant additional findings. IMPRESSION: 1. Persistent bilateral airspace disease. Signer Name: Rodney Damian MD Signed: 01/17/2020 1:06 PM Workstation Name: [email or web address]
[2020-01-17] MEDS ORDERED: LIP THERAPY VASELINE TP PRN (15:26)
[2020-01-17] MEDS: TAMSULOSIN 0.4 MG CAP PO SCH (21:45)
[2020-01-17] MEDS: POLYETHYLENE GLYCOL 3350 17 GM POWDER PO SCH (21:45)
[2020-01-18] MEDS: METOPROLOL TARTRATE 25 MG TAB PO SCH ×4 (01:39→18:35)
[2020-01-18] MEDS: MORPHINE 2 MG/1 ML INJ IV PRN ×2 (01:40→06:50)
[2020-01-18] MEDS ORDERED: ALBUTEROL 2.5 MG/3 ML NEBU IH ONE ×2 (05:25→05:26)
[2020-01-18 07:07] LABS: Basophils # (Auto) 0.1 K/mm3 (0.0-0.1); Basophils % (Auto) 0.8 % (0.0-1.8); Eosinophils # (Auto) 0.2 K/mm3 (0.0-0.4); Eosinophils % (Auto) 1.9 % (0.0-4.3); Hematocrit 32.2 % (35.5-45.6); Hemoglobin 10.1 gm/dl (11.8-15.2); Lymphocytes # (Auto) 1.8 K/mm3 (1.2-5.4); Lymphocytes % (Auto) 18.6 % (13.4-35.0); Mean Corpuscular HGB Conc 31 % (32-34); Mean Corpuscular Volume 81 fl (84-94); Monocytes # (Auto) 0.7 K/mm3 (0.0-0.8); Monocytes % (Auto) 6.8 % (0.0-7.3); Platelet Count 369 K/mm3 (140-440); Red Blood Count 3.97 M/mm3 (3.65-5.03); Red Cell Distribution Width 18.1 % (13.2-15.2)
[2020-01-18 07:27] LABS: Blood Urea Nitrogen 18 mg/dL (9-20); Calcium 9.5 mg/dL (8.4-10.2); Hemolysis Index 5
[2020-01-18 07:33] LABS: BUN/Creatinine Ratio 26
--- NOTE | 2020-01-18 08:34 | Progress Note ---
Assessment and Plan Assessment and plan: COVID-19 test; 11/24/2019; negative 11/26/2019; negative 12/29/2019: Negative --Acute on chronic hypoxemic respiratory failure; Patient has tracheostomy , T-piece on vent Continue nebulizers and supportive care Wean as tolerated and extubate Tracheostomy care --Acute exacerbation of COPD; Nebulizers, patient completed steroids --Left lower lobe PE; Oxygen titrate O2 sats more than 90% Continue Eliquis --Acute right lower extremity DVT; Patient is on Eliquis --Bilateral multifocal pneumonia/community-acquired Completed antibiotics, significantly improved --Severe sepsis/bilateral pneumonia: Monitor off antibiotics --Paroxysmal atrial fibrillation; Rate controlled Continue amiodarone, Eliquis --Acute on chronic diastolic congestive heart failure Continue current failure medications EF 50 to 55% --H/o CAD [[facility] 12/2018 in-stent restenosis] Patient is stable on current cardiac medications --Hypertensive emergency; present on admission Reasonable blood pressures, continue current antihypertensives As needed medications --History of alcohol abuse/alcohol withdrawal; Was on CIWA protocol, now stable --Oropharyngeal dysphagia; status post PEG placement Continue PEG feeds per protocol --History of partial small bowel obstruction; Surgery evaluated the patient, resolved --Obesity; BMI 34.7 Patient needs weight reduction when medically stable --Severe protein calorie malnutrition/hypoalbuminemia Nutrition supplements, dietitian following, PEG feeds --DVT prophylaxis; Eliquis --Full CODE STATUS We will closely monitor the patient and adjust the management as needed Plan of care reviewed with the patient's nurse The high probability of a clinically significant, sudden or life threatening deterioration of the [Respiratory, cardiovascular & neurological] system(s) required my full and direct attention, intervention and personal management. The aggregate critical care time was [32] minutes without overlap. Time includes spent on [x] Data Review and interpretation [x] Patient assessment and monitoring of vital signs [x] Documentation [x] Medication orders and management 01/05; Pt stable. NGT output 650cc over 24 hours, bilious. No f/c, WBC within normal limits. cont NG suction and cont to hold TF 01/06: Abs series - mild improvement in small bowel distension in mid abdomen, normal gas/stool pattern in colon. NGT in duodenum. Continue to hold tube feeding, maintain NG tube with low intermittent suction. Patient's was updated by phone. Continue to provide supportive care and monitor clinically. 01/07: +BMs today and NGT/PEG output appears more gastric today. Plan to clamp NGT, if tolerates start TF from tomorrow. cont supportive care. 01/08; Gastric output decreased over last 24 hours. NGT has been clamped x 24 hours. plan to dc NGT and to start TTF via PEG - vital HF @10cc/hr 01/09: clinically stable, tolerating TF. monitor BMP, wean off from vent as tolerated clinically stable, on TF. wean off vent as tolerated 01/11: wean off from vent, cont to monitor, on TF 01/12: wean off from vent, cont to monitor, on TF. need placement - unfunded 01/13; remains on ventilatory support, unable to wean, DC planning possible LTAC, unfunded 01/14; patient of ventilatory support, T-piece tracheostomy on oxygen, LTAC placement per case management 01/16; tracheostomy, patient on full ventilatory support, wean off vent support as tolerated, pending LTAC placement, social financial issues 01/17; awaiting LTAC placement, insurance and financial issues . History Interval history: I have seen and examined the patient at the bedside this morning Patient's chart, current medication list, interdisciplinary notes reviewed Patient tracheostomy on ventilatory support Feels slightly better alert and awake Vital signs noted Hospitalist Physical - Constitutional Vitals: Temp Pulse Resp BP Pulse Ox 98.4 F 98 H 23 137/77 91 01/18/20 03:31 01/18/20 07:15 01/18/20 07:15 01/18/20 07:15 01/18/20 07:15 General appearance: Present: well-nourished, obese, other (Tracheostomy on vent) - EENT Eyes: Present: PERRL, EOM intact - Neck Neck: Present: supple, normal ROM - Respiratory Respiratory effort: normal Respiratory: bilateral: diminished, rales, negative: rhonchi, wheezing - Cardiovascular Rhythm: regular Heart Sounds: Present: S1 & S2 - Extremities Extremities: no ischemia Extremity abnormal: edema - Abdominal General gastrointestinal: soft, non-tender, non-distended, normal bowel sounds, other (PEG in place) - Integumentary Integumentary: Present: clear, warm - Psychiatric Psychiatric: other (Intubated on vent) - Neurologic Neurologic: other (Tracheostomy on vent) HEART Score - HEART Score Troponin: Troponin T < 0.010 ng/mL (0.00-0.029) 11/24/19 02:53 Results - Labs CBC & Chem 7: 01/18/20 06:46 01/18/20 06:46 Labs: Laboratory Last Values WBC 9.7 K/mm3 (4.5-11.0) 01/18/20 06:46 RBC 3.97 M/mm3 (3.65-5.03) 01/18/20 06:46 Hgb 10.1 gm/dl (11.8-15.2) L 01/18/20 06:46 Hct 32.2 % (35.5-45.6) L 01/18/20 06:46 MCV 81 fl (84-94) L 01/18/20 06:46 MCH 25 pg (28-32) L 01/18/20 06:46 MCHC 31 % (32-34) L 01/18/20 06:46 RDW 18.1 % (13.2-15.2) H 01/18/20 06:46 Plt Count 369 K/mm3 (140-440) 01/18/20 06:46 Lymph % (Auto) 18.6 % (13.4-35.0) 01/18/20 06:46 [place] % (Auto) 6.8 % (0.0-7.3) 01/18/20 06:46 Eos % (Auto) 1.9 % (0.0-4.3) 01/18/20 06:46 Baso % (Auto) 0.8 % (0.0-1.8) 01/18/20 06:46 Lymph # (Auto) 1.8 K/mm3 (1.2-5.4) 01/18/20 06:46 [place] # (Auto) 0.7 K/mm3 (0.0-0.8) 01/18/20 06:46 Eos # (Auto) 0.2 K/mm3 (0.0-0.4) 01/18/20 06:46 Baso # (Auto) 0.1 K/mm3 (0.0-0.1) 01/18/20 06:46 Add Manual Diff Complete 12/19/19 11:32 Total Counted 100 12/19/19 11:32 Seg Neutrophils % 71.9 % (40.0-70.0) H 01/18/20 06:46 Seg Neuts % (Manual) 82.0 % (40.0-70.0) H 12/19/19 11:32 Band Neutrophils % 0 % 12/19/19 11:32 Lymphocytes % (Manual) 10.0 % (13.4-35.0) L 12/19/19 11:32 Reactive Lymphs % (Man) 0 % 12/19/19 11:32 Monocytes % (Manual) 6.0 % (0.0-7.3) 12/19/19 11:32 Eosinophils % (Manual) 2.0 % (0.0-4.3) 12/19/19 11:32 Basophils % (Manual) 0 % (0.0-1.8) 12/19/19 11:32 Metamyelocytes % 0 % 12/19/19 11:32 Myelocytes % 0 % 12/19/19 11:32 Promyelocytes % 0 % 12/19/19 11:32 Blast Cells % 0 % 12/19/19 11:32 Nucleated RBC % 1.0 % (0.0-0.9) H 12/19/19 11:32 Seg Neutrophils # 7.0 K/mm3 (1.8-7.7) 01/18/20 06:46 Seg Neutrophils # Man 12.0 K/mm3 (1.8-7.7) H 12/19/19 11:32 Band Neutrophils # 0.0 K/mm3 12/19/19 11:32 Lymphocytes # (Manual) 1.5 K/mm3 (1.2-5.4) 12/19/19 11:32 Abs React Lymphs (Man) 0.0 K/mm3 12/19/19 11:32 Monocytes # (Manual) 0.9 K/mm3 (0.0-0.8) H 12/19/19 11:32 Eosinophils # (Manual) 0.3 K/mm3 (0.0-0.4) 12/19/19 11:32 Basophils # (Manual) 0.0 K/mm3 (0.0-0.1) 12/19/19 11:32 Metamyelocytes # 0.0 K/mm3 12/19/19 11:32 Myelocytes # 0.0 K/mm3 12/19/19 11:32 Promyelocytes # 0.0 K/mm3 12/19/19 11:32 Blast Cells # 0.0 K/mm3 12/19/19 11:32 WBC Morphology Not Reportable 12/19/19 11:32 Hypersegmented Neuts Not Reportable 12/19/19 11:32 Hyposegmented Neuts Not Reportable 12/19/19 11:32 Hypogranular Neuts Not Reportable 12/19/19 11:32 Smudge Cells Not Reportable 12/19/19 11:32 Toxic Granulation Not Reportable 12/19/19 11:32 Toxic Vacuolation Not Reportable 12/19/19 11:32 Dohle Bodies Not Reportable 12/19/19 11:32 Pelger-Huet Anomaly Not Reportable 12/19/19 11:32 Hector Rods Not Reportable 12/19/19 11:32 Platelet Estimate Consistent w auto 12/19/19 11:32 Clumped Platelets Not Reportable 12/19/19 11:32 Plt Clumps, EDTA Not Reportable 12/19/19 11:32 Large Platelets Not Reportable 12/19/19 11:32 Giant Platelets Not Reportable 12/19/19 11:32 Platelet Satelliting Not Reportable 12/19/19 11:32 Plt Morphology Comment Not Reportable 12/19/19 11:32 RBC Morphology Not Reportable 12/19/19 11:32 Dimorphic RBCs Not Reportable 12/19/19 11:32 Polychromasia Not Reportable 12/19/19 11:32 Hypochromasia Few 12/19/19 11:32 Poikilocytosis Not Reportable 12/19/19 11:32 Anisocytosis 1+ 12/19/19 11:32 Microcytosis Few 12/19/19 11:32 Macrocytosis Few 12/19/19 11:32 Spherocytes Not Reportable 12/19/19 11:32 Pappenheimer Bodies Not Reportable 12/19/19 11:32 Sickle Cells Not Reportable 12/19/19 11:32 Target Cells Not Reportable 12/19/19 11:32 Tear Drop Cells Not Reportable 12/19/19 11:32 Ovalocytes Not Reportable 12/19/19 11:32 Helmet Cells Not Reportable 12/19/19 11:32 Gottlieb-Leander Bodies Not Reportable 12/19/19 11:32 [place] Rings Not Reportable 12/19/19 11:32 [place] Cells Not Reportable 12/19/19 11:32 Bite Cells Not Reportable 12/19/19 11:32 Crenated Cell Not Reportable 12/19/19 11:32 Elliptocytes Not Reportable 12/19/19 11:32 Acanthocytes (Spur) Not Reportable 12/19/19 11:32 Rouleaux Not Reportable 12/19/19 11:32 Hemoglobin C Crystals Not Reportable 12/19/19 11:32 Schistocytes Not Reportable 12/19/19 11:32 Malaria parasites Not Reportable 12/19/19 11:32 Clifford Bodies Not Reportable 12/19/19 11:32 Hem Pathologist Commnt No 12/19/19 11:32 PT 13.8 Sec. (12.2-14.9) 12/21/19 10:13 INR 1.05 (0.87-1.13) 12/21/19 10:13 APTT 23.9 Sec. (24.2-36.6) L 12/21/19 10:13 Heparin Anti-Xa Level 0.16 U.I./ml (0.3-0.7) L 01/04/20 04:26 ABG pH 7.449 pH Units (7.350-7.450) 01/13/20 20:40 POC ABG pCO2 45.6 mmHg (32.0-48.0) 01/12/20 13:58 ABG pCO2 46.9 mm Hg 01/13/20 20:40 POC ABG pO2 76.6 mmHg (83-108) L 01/12/20 13:58 ABG pO2 65.3 mm Hg (80.0-90.0) L 01/13/20 20:40 POC ABG HCO3 31.2 01/12/20 13:58 ABG HCO3 31.8 mmol/L (20.0-26.0) H 01/13/20 20:40 ABG O2 Saturation 93.5 % (95.0-99.0) L 01/13/20 20:40 ABG O2 Content 17.0 (0.0-44) 01/13/20 20:40 POC ABG Base Excess 6.5 01/12/20 13:58 ABG Base Excess 6.7 mmol/L (-2.0-3.0) H 01/13/20 20:40 ABG Hemoglobin 13.3 gm/dl (14.0-18.0) L 01/13/20 20:40 ABG Oxyhemoglobin 84 (94-98) L 12/22/19 03:22 ABG Carboxyhemoglobin 2.2 % (0.0-5.0) 01/13/20 20:40 ABG Methemoglobin 0.6 % (0.0-1.5) 01/13/20 20:40 ABG Sodium 136.8 mmol/L (136.0-145.0) 01/12/20 13:58 ABG Potassium 3.7 mmol/L (3.40-4.50) 01/12/20 13:58 ABG Chloride 103.0 mmol/L (98-107) 01/12/20 13:58 ABG Glucose 99 mg/dL (65-95) H 01/12/20 13:58 Oxyhemoglobin 90.9 % (95.0-99.0) L 01/13/20 20:40 Carboxyhemoglobin 0.7 (0.5-1.5) 12/22/19 03:22 FiO2 35 % 01/13/20 20:40 Sodium 138 mmol/L (137-145) 01/18/20 06:46 Potassium 4.7 mmol/L (3.6-5.0) D 01/18/20 06:46 Chloride 98.8 mmol/L (98-107) 01/18/20 06:46 Carbon Dioxide 30 mmol/L (22-30) 01/18/20 06:46 Anion Gap 14 mmol/L 01/18/20 06:46 BUN 18 mg/dL (9-20) 01/18/20 06:46 Creatinine 0.7 mg/dL (0.8-1.3) L 01/18/20 06:46 Estimated GFR > 60 ml/min 01/18/20 06:46 BUN/Creatinine Ratio 26 % 01/18/20 06:46 Glucose 155 mg/dL (75-100) H 01/18/20 06:46 POC Glucose 168 mg/dL (70-105) H 01/18/20 05:37 Lactic Acid 2.50 mmol/L (0.7-2.0) H* 11/24/19 10:37 Magnesium 2.60 mg/dL (1.7-2.3) H 12/07/19 12:41 Calcium 9.5 mg/dL (8.4-10.2) 01/18/20 06:46 Ferritin 84.4 ng/mL (30.0-300.0) 11/24/19 04:53 Direct Bilirubin < 0.2 mg/dL (0-0.2) 12/08/19 03:55 Indirect Bilirubin 0.2 mg/dL 12/08/19 03:55 Phosphorus 3.40 mg/dL (2.5-4.5) 01/12/20 12:01 Total Bilirubin 0.50 mg/dL (0.1-1.2) 01/12/20 00:23 Total Creatine Kinase 141 units/L (55-170) 11/24/19 02:53 CK-MB (CK-2) 4.3 ng/mL (0.0-4.0) H 11/24/19 02:53 AST 16 units/L (5-40) 01/12/20 00:23 ALT 22 units/L (7-56) 01/12/20 00:23 CK-MB (CK-2) Rel Index 3.0 (0-4) 11/24/19 02:53 Alkaline Phosphatase 59 units/L (35-129) 01/12/20 00:23 Troponin T < 0.010 ng/mL (0.00-0.029) 11/24/19 02:53 C-Reactive Protein 8.50 mg/dL (0.00-1.30) H 12/01/19 12:16 Lactate Dehydrogenase 228 units/L (91-180) H 12/19/19 04:45 NT-Pro-B Natriuret Pep 3866 pg/mL (0-900) H 01/01/20 10:40 Total Protein 6.3 g/dL (6.3-8.2) 01/12/20 00:23 Albumin 2.6 g/dL (3.9-5) L 01/12/20 00:23 Albumin/Globulin Ratio 0.7 % 01/12/20 00:23 Procalcitonin 0.76 ng/mL (<0.15) 01/01/20 10:40 Arterial Blood Glucose 99 mg/dL (65-95) H 01/12/20 13:58 Arterial Blood Ionized Calcium 4.8 mg/dL (4.6-5.3) 01/12/20 13:58 Urine Color Cecy (Yellow) 12/31/19 18:04 Urine Turbidity Clear (Clear) 12/31/19 18:04 Urine pH 5.0 (5.0-7.0) 12/31/19 18:04 Ur Specific [place] 1.023 (1.003-1.030) 12/31/19 18:04 Urine Protein <15 mg/dl mg/dL (Negative) 12/31/19 18:04 Urine Glucose (UA) Neg mg/dL (Negative) 12/31/19 18:04 Urine Ketones Neg mg/dL (Negative) 12/31/19 18:04 Urine Blood Neg (Negative) 12/31/19 18:04 Urine Bacteria (Auto) 1+ /HPF (Negative) 12/03/19 06:03 Urine Nitrite Neg (Negative) 12/31/19 18:04 Urine Bilirubin Neg (Negative) 12/31/19 18:04 Urine Urobilinogen 4.0 mg/dL (<2.0) 12/31/19 18:04 Ur Leukocyte Esterase Neg (Negative) 12/31/19 18:04 Urine WBC (Auto) 2.0 /HPF (0.0-6.0) 12/31/19 18:04 Urine RBC (Auto) 3.0 /HPF (0.0-6.0) 12/31/19 18:04 U Epithel Cells (Auto) 2.0 /HPF (0-13.0) 12/31/19 18:04 Urine Mucus 1+ /HPF 12/31/19 18:04 Vancomycin Trough 14.2 ug/mL (5.0-20.0) 12/13/19 15:01 Coronavirus (PCR) Negative (Negative) 12/29/19 10:07 - Diagnostic Impressions Diagnostic Impressions: Echocardiogram 11/29/19 07:37 Transthoracic Echocardiogram Indication: CHF BP: 116/72 HR: 33 Conclusions *The study is technically limited due to poor acoustic windows. *Global left ventricular systolic function is normal. *The estimated ejection fraction is 50-55%. *Mild concentric left ventricular hypertrophy is observed. *There is trace of mitral regurgitation. *There is mild tricuspid regurgitation. Findings Procedure Info: The study quality is poor. The study is technically limited due to poor acoustic windows. The study is technically limited due to patient body habitus. Left Ventricle: The left ventricular chamber size is normal. Mild concentric left ventricular hypertrophy is observed. Global left ventricular systolic function is normal. The estimated ejection fraction is 50-55%. Left Atrium: The left atrial chamber size is normal. Right Ventricle: The right ventricular cavity size is normal. Right Atrium: The right atrial cavity size is normal. Aortic Valve: The aortic valve leaflets are moderately thickened. There is trace of aortic regurgitation. There is no evidence of aortic stenosis. Mitral Valve: The mitral valve leaflets are mildly thickened. There is trace of mitral regurgitation. There is no evidence of mitral stenosis. Tricuspid Valve: There is mild tricuspid regurgitation. No pulmonary hypertension is noted. Pulmonic Valve: There is trace pulmonic regurgitation. Pericardium: There is no pericardial effusion. Aorta: There is no dilatation of the aortic root. Venous: The inferior vena cava appears normal in size. Contrast: Definity was used to optimize study. Intravenous contrast was used to enhance endocardial border definition. Measurements Chambers 2D Name Value Normal Range Ao root diameter (2D) 3.4 cm (2 - 3.7) Aortic Valve Name Value Normal Range AV Vmax 0.98 m/sec - AV VTI 16.76 cm - AV peak gradient 3.83 mmHg - AV mean gradient 2.57 mmHg - LVOT diameter 3.11 cm - LVOT Vmax 0.68 m/sec - LVOT VTI 11.52 cm - LVOT peak gradient 1.84 mmHg - LVOT mean gradient 1.27 mmHg - SV LVOT 87.31 ml - MALOU (continuity Vmax) 5.24 cm2 - MALOU (continuity VTI) 5.21 cm2 - Tricuspid Valve Name Value Normal Range IVC diameter 2.24 cm (1.2 - 2.3) Hoffman/IV: Voiding Method Condom Catheter IV Catheter Type [Right INT / Saline Lock Forearm] IV Catheter Type [Right Hand] INT / Saline Lock IV Catheter Type [Right Upper INT / Saline Lock arm] IV Catheter Type [Left Upper Mid-line arm] IV Catheter Type [Left Forearm INT / Saline Lock ] IV Catheter Type [Left Hand] INT / Saline Lock IV Catheter Type [Left Wrist] INT / Saline Lock IV Catheter Type [Right Peripheral IV Antecubital] Active Medications - Current Medications Current Medications: Generic Name Dose Route Start Last Admin Trade Name Freq PRN Reason Stop Dose Admin Acetaminophen 650 mg 12/31/19 11:43 01/14/20 08:27 Tylenol FEEDTUBE 650 mg Q6H PRN Administration Pain, Mild (1-3) Amiodarone HCl 200 mg 12/04/19 14:00 01/17/20 21:44 Cordarone PO 200 mg BID CAR Administration Lipase/Protease/Amylase 1 each 01/09/20 12:01 Pancreaze 10,500 Unit FEEDTUBE PRN PRN For Clogged Feeding Tube Apixaban 5 mg 01/11/20 22:00 01/17/20 21:44 Eliquis PO 5 mg Q12HR CAR Administration Protocol Bisacodyl 10 mg 01/06/20 13:00 01/17/20 11:24 Dulcolax [place] Not Given DAILY CAR Docusate Sodium 100 mg 12/02/19 22:00 01/17/20 21:55 Colace FEEDTUBE 100 mg BID CAR Administration Famotidine 20 mg 01/12/20 10:00 01/17/20 21:44 Pepcid PO 20 mg BID CAR Administration Furosemide 40 mg 01/16/20 10:00 01/17/20 10:00 Lasix IV 40 mg QDAY CAR Administration Glycopyrrolate 2 mg 01/12/20 22:00 01/17/20 21:44 Glycopyrrolate PO 2 mg BID CAR Administration Haloperidol Lactate 5 mg 12/25/19 10:00 01/17/20 11:19 Haldol IV 5 mg Q6H PRN Administration Unrespon. to mult. doses BZD's Hydrophilic Ointment 1 applic 01/17/20 15:26 Vaseline Lip Therapy TP DIRECT PRN Dry Lips Lorazepam 2 mg 12/25/19 10:00 01/17/20 16:01 Ativan IV 2 mg Q6H PRN Administration AGITATION Magnesium Hydroxide 30 ml 01/14/20 13:35 Milk Of Magnesia PO QDAY PRN Constip unreliev by MOM/or NPO Metoprolol Tartrate 5 mg 01/11/20 08:00 01/14/20 02:32 Metoprolol IV 5 mg Q6H PRN Administration SEE INSTRUCTIONS Metoprolol Tartrate 25 mg 01/11/20 13:00 01/18/20 06:48 Metoprolol PO 25 mg Q6H CAR Administration Morphine Sulfate 2 mg 01/06/20 15:41 01/18/20 06:50 Morphine IV 2 mg Q4H PRN Administration Pain, Moderate (4-6) Ondansetron HCl 4 mg 01/05/20 14:37 01/05/20 16:18 Zofran IV 4 mg Q8H PRN Administration Nausea And Vomiting Polyethylene Glycol 17 gm 12/04/19 22:00 01/17/20 21:45 Miralax 3350 PO 17 gm QHS CAR Administration Quetiapine Fumarate 300 mg 01/13/20 22:00 01/17/20 21:45 Seroquel PO 300 mg BID CAR Administration Scopolamine 1 each 01/07/20 20:00 01/07/20 21:08 Transderm-Scop TD 1 each Q72HR CAR Administration Simple Syrup 15 ml 01/09/20 12:01 Simple Syrup FEEDTUBE PRN PRN Hypoglycemia Simple Syrup 30 ml 01/09/20 12:01 Simple Syrup FEEDTUBE PRN PRN Hypoglycemia Sodium Bicarbonate 325 mg 01/09/20 12:01 Sodium Bicarbonate FEEDTUBE PRN PRN For Clogged Feeding Tube Sodium Chloride 10 ml 11/24/19 10:00 01/17/20 21:55 Sodium Chloride Flush Syringe 10 Ml IV 10 ml BID CAR Administration Tamsulosin HCl 0.8 mg 12/20/19 22:00 01/17/20 21:45 Flomax PO 0.8 mg QHS CAR Administration Nutrition/Malnutrition Assess - Dietary Evaluation Nutrition/Malnutrition Findings: Nutrition Notes Start: 11/24/19 12:22 Freq: Status: Active Protocol: Document 01/15/20 12:20 AL (Rec: 01/15/20 12:51 AL [email or web address]) Co-Sign 01/15/20 12:20 MK Nutrition Notes Initial or Follow up Reassessment Current Diagnosis Coronary Artery Disease,Heart Failure,Respiratory Failure, Stroke,Hyperlipidemia Other Pertinent Diagnosis Partial SBO, pneu Current Diet Vital HP at 70 ml/hr (goal rate) Labs/Tests Reviewed Pertinent Medications Reviewed Height 6 ft 2 in Weight 120 kg Ocate Body Weight (kg) 86.36 BMI 34.0 Weight Status Obese Subjective/Other Information TF tolerated at 70 ml/hr (goal rate). Pt extubated. Percent of energy/protein needs met: 100%/79% Burn Absent Trauma Absent GI Symptoms None Current % PO Negligible Minimum of two criteria No Fluid Accumulation Mild (non-severe) #1 Nutrition Diagnosis Inadequate oral intake Diagnosis Progress(for reassessment Continues documentation) Is patient on ventilator? No Is Patient Ambulatory and/or Out of Bed No REE-([facility]-confined to bed) 2482.308 Kcal/Kg value to use for calculation 14 Approximate Energy Requirements Using 1680 kcal/Kg Calculation Used for Recommendations Kcal/kg Additional Notes Pro needs 82-103 g/day (.8-1. 0g/kg AdBW) Fluid needs 1ml/kcal Nutrition Intervention Change Diet Order: Change TF to Promote 1.0 at 70 ml/hr Nutrition Support: Promote 1.0 at 70ml/hr (goal rate) Flush 50 ml q4h or per MD Kcal 1,680 Protein (gm) 105 Fluid (mL) 1,409 Goal #1 Change TF Goal #2 TF (at goal rate) to meet 75% energy and Pro needs Anticipated Discharge Needs: unable to determine Follow-Up By: 01/19/20 Additional Comments TF tolerance.
[2020-01-18] MEDS: APIXABAN 5 MG TAB PO SCH ×2 (10:20→21:44)
[2020-01-18] MEDS: DOCUSATE SODIUM 100 MG/10 ML ORAL LIQD FEEDTUBE SCH ×2 (10:20→21:44)
[2020-01-18] MEDS: QUEtiapine 100 MG TAB PO SCH ×2 (10:20→21:44)
[2020-01-18] MEDS: AMIODARONE 200 MG TAB PO SCH ×2 (10:20→21:44)
[2020-01-18] MEDS: GLYCOPYRROLATE 2 MG TAB PO SCH ×2 (10:20→21:44)
[2020-01-18] MEDS: FUROSEMIDE 40 MG/4 ML INJ IV SCH (10:21)
[2020-01-18] MEDS: FAMOTIDINE 20 MG TAB PO SCH ×2 (10:21→21:44)
--- NOTE | 2020-01-18 12:07 | Progress Note ---
Assessment and Plan Atrial fibrillation, paroxysmal on amiodarone and metoprolol currently in sinus rhythm Ischemic Cardiomyopathy re-echo this presentation reports an LVEF 40-45%. echo 08/2018: decreased LVEF 20-25%. Hx of CAD [facility] 12/2018: mild in-stent restenosis. No significant residual disease. Multifocal pneumonia negative COVID-19 test x 3 Chronic Respiratory failure s/p trach History of COPD Acute PE/DVT -initiated on Eliquis Anemia Partial SBO vs ileus Recommendations: Continue amiodarone and metoprolol for paroxysmal atrial fibrillation. Otherwise, conservative cardiac management. Subjective Date of service: 01/18/20 Principal diagnosis: Ac hypoxemic resp failure; Pneumonia; PUI COVID-19; CHF; COPD; HTN Interval history: No interval cardiac changes. Sinus rhythm on telemetry. Objective Vital Signs Temp Pulse Pulse Pulse Resp Resp Resp 01/18/20 11:00 96 H 20 01/18/20 10:45 97 H 21 01/18/20 10:31 95 H 20 01/18/20 10:15 95 H 22 01/18/20 10:00 96 H 17 01/18/20 09:45 97 H 24 01/18/20 09:31 97 H 24 01/18/20 09:15 97 H 20 01/18/20 09:00 96 H 14 01/18/20 08:45 96 H 21 01/18/20 08:31 98 H 25 H 01/18/20 08:30 96 H 26 H 01/18/20 08:15 102 H 28 H 01/18/20 08:00 98.4 F 98 H 20 01/18/20 07:45 94 H 20 01/18/20 07:31 94 H 25 H 01/18/20 07:15 98 H 23 01/18/20 07:00 102 H 24 01/18/20 06:48 112 H 01/18/20 06:45 115 H 29 H 01/18/20 06:31 115 H 27 H 01/18/20 06:15 108 H 26 H 01/18/20 06:00 114 H 31 H 01/18/20 05:45 113 H 27 H 01/18/20 05:31 123 H 28 H 01/18/20 05:28 117 H 24 01/18/20 05:15 120 H 21 01/18/20 05:01 115 H 29 H 01/18/20 04:45 104 H 22 01/18/20 04:31 101 H 19 01/18/20 04:15 98 H 24 01/18/20 04:00 96 H 96 H 21 01/18/20 03:45 99 H 22 01/18/20 03:40 01/18/20 03:34 101 H 01/18/20 03:31 98.4 F 101 H 17 01/18/20 03:15 111 H 23 01/18/20 03:00 108 H 22 01/18/20 02:45 99 H 23 01/18/20 02:31 98 H 25 H 01/18/20 02:15 98 H 22 01/18/20 02:00 100 H 23 01/18/20 01:45 108 H 24 01/18/20 01:39 111 H 01/18/20 01:31 112 H 20 01/18/20 01:15 103 H 25 H 01/18/20 01:00 98 H 16 01/18/20 00:45 96 H 23 01/18/20 00:31 100 H 26 H 01/18/20 00:15 103 H 19 01/18/20 00:00 102 H 102 H 19 40 H 01/17/20 23:50 98 H 01/17/20 23:45 97 H 21 01/17/20 23:31 100 H 23 01/17/20 23:22 99.5 F 01/17/20 23:15 102 H 26 H 01/17/20 23:00 103 H 16 01/17/20 22:45 99 H 21 01/17/20 22:31 102 H 23 01/17/20 22:15 107 H 24 01/17/20 22:00 107 H 24 01/17/20 21:45 107 H 18 01/17/20 21:31 103 H 18 01/17/20 21:15 105 H 24 01/17/20 21:00 109 H 22 01/17/20 20:45 109 H 19 01/17/20 20:31 103 H 22 01/17/20 20:15 104 H 19 01/17/20 20:00 104 H 104 H 19 01/17/20 19:55 01/17/20 19:52 97.9 F 01/17/20 19:51 105 H 01/17/20 19:45 105 H 25 H 01/17/20 19:31 106 H 18 01/17/20 19:15 102 H 22 01/17/20 19:10 107 H 01/17/20 19:00 103 H 25 H 01/17/20 18:51 22 01/17/20 18:45 105 H 24 01/17/20 18:31 107 H 19 01/17/20 18:21 22 01/17/20 18:15 100 H 20 01/17/20 18:00 99 H 24 01/17/20 17:45 100 H 22 01/17/20 17:31 105 H 21 01/17/20 17:15 96 H 19 01/17/20 17:00 96 H 25 H 01/17/20 16:47 102 H 01/17/20 16:45 102 H 23 01/17/20 16:31 106 H 24 01/17/20 16:15 107 H 25 H 01/17/20 16:00 97.2 F L 108 H 107 H 17 22 01/17/20 15:45 108 H 22 01/17/20 15:31 106 H 24 01/17/20 15:15 104 H 21 01/17/20 15:00 100 H 20 01/17/20 14:45 97 H 21 01/17/20 14:31 104 H 22 01/17/20 14:21 24 01/17/20 14:15 109 H 26 H 01/17/20 14:00 107 H 20 01/17/20 13:45 94 H 21 01/17/20 13:31 90 21 01/17/20 13:29 91 H 01/17/20 13:15 94 H 21 01/17/20 13:00 88 18 01/17/20 12:45 94 H 20 01/17/20 12:39 95 H 21 01/17/20 12:31 93 H 22 01/17/20 12:15 96 H 22 BP Pulse Ox Pulse Ox Pulse Ox 01/18/20 11:00 106/71 100 01/18/20 10:45 116/79 97 01/18/20 10:31 116/79 95 01/18/20 10:15 116/79 99 01/18/20 10:00 116/79 97 01/18/20 09:45 123/75 97 01/18/20 09:31 123/75 94 10/26/20 09:15 123/75 98 01/18/20 09:00 123/75 97 01/18/20 08:45 110/75 99 01/18/20 08:31 110/75 95 01/18/20 08:30 123/75 97 01/18/20 08:15 110/75 94 01/18/20 08:00 110/75 94 96 01/18/20 07:45 137/77 92 01/18/20 07:31 137/77 92 01/18/20 07:15 137/77 91 01/18/20 07:00 137/77 01/18/20 06:48 130/84 01/18/20 06:45 130/84 100 01/18/20 06:31 130/84 87 01/18/20 06:15 130/84 90 01/18/20 06:00 132/95 91 01/18/20 05:45 136/97 98 01/18/20 05:31 136/97 01/18/20 05:28 01/18/20 05:15 136/97 01/18/20 05:01 136/97 01/18/20 04:45 102/72 01/18/20 04:31 102/72 01/18/20 04:15 102/72 100 01/18/20 04:00 102/72 100 01/18/20 03:45 117/89 100 01/18/20 03:40 99 01/18/20 03:34 117/89 100 01/18/20 03:31 117/89 100 01/18/20 03:15 117/89 98 01/18/20 03:00 117/89 96 01/18/20 02:45 102/65 96 01/18/20 02:31 102/65 96 01/18/20 02:15 102/65 96 01/18/20 02:00 102/67 96 01/18/20 01:45 102/65 95 01/18/20 01:39 102/65 01/18/20 01:31 102/65 96 01/18/20 01:15 102/65 97 01/18/20 01:00 102/65 01/18/20 00:45 109/73 97 01/18/20 00:31 109/73 97 01/18/20 00:15 109/73 96 01/18/20 00:00 109/73 96 01/17/20 23:50 106/71 96 01/17/20 23:45 106/71 96 01/17/20 23:31 106/71 97 01/17/20 23:22 01/17/20 23:15 106/71 96 01/17/20 23:00 106/71 97 01/17/20 22:45 130/73 96 01/17/20 22:31 130/73 96 01/17/20 22:15 130/73 96 01/17/20 22:00 130/73 93 01/17/20 21:45 130/82 97 01/17/20 21:31 130/82 97 01/17/20 21:15 130/82 97 01/17/20 21:00 130/82 95 01/17/20 20:45 118/75 97 01/17/20 20:31 118/75 97 01/17/20 20:15 118/75 96 01/17/20 20:00 118/75 97 01/17/20 19:55 99 01/17/20 19:52 01/17/20 19:51 116/76 96 01/17/20 19:45 116/76 96 01/17/20 19:31 116/76 98 01/17/20 19:15 116/76 95 01/17/20 19:10 130/82 01/17/20 19:00 116/76 01/17/20 18:51 01/17/20 18:45 111/68 97 01/17/20 18:31 111/68 94 01/17/20 18:21 01/17/20 18:15 113/74 97 01/17/20 18:00 113/74 01/17/20 17:45 111/68 98 01/17/20 17:31 111/68 98 01/17/20 17:15 111/68 94 01/17/20 17:00 111/68 01/17/20 16:47 114/73 96 01/17/20 16:45 114/73 95 01/17/20 16:31 114/73 97 01/17/20 16:15 114/73 95 01/17/20 16:00 114/73 95 01/17/20 15:45 117/76 96 01/17/20 15:31 11776 97 01/17/20 15:15 117/76 99 01/17/20 15:00 117/ 95 01/17/20 14:45 127/93 98 01/17/20 14:31 127/93 97 01/17/20 14:21 01/17/20 14:15 127/93 98 01/17/20 14:00 127/93 94 99 01/17/20 13:45 108/ 99 01/17/20 13:31 108/ 98 01/17/20 13:29 108/67 01/17/20 13:15 108/ 99 01/17/20 13:00 108/ 96 01/17/20 12:45 114/77 99 01/17/20 12:39 114/ 99 01/17/20 12:31 114/77 99 01/17/20 12:15 114/77 99 - Physical Examination General: Other (awake, s/p trach) HEENT: Positive: PERRL Neck: Positive: neck supple Cardiac: Positive: Reg Rate and Rhythm Extremities: Absent: edema - Labs and Meds CBC 01/18/20 Range/Units 06:46 WBC 9.7 (4.5-11.0) K/mm3 RBC 3.97 (3.65-5.03) M/mm3 Hgb 10.1 L (11.8-15.2) gm/dl Hct 32.2 L (35.5-45.6) % Plt Count 369 (140-440) K/mm3 Lymph # (Auto) 1.8 (1.2-5.4) K/mm3 Warren # (Auto) 0.7 (0.0-0.8) K/mm3 Eos # (Auto) 0.2 (0.0-0.4) K/mm3 Baso # (Auto) 0.1 (0.0-0.1) K/mm3 Comprehensive Metabolic Panel 01/18/20 Range/Units 06:46 Sodium 138 (137-145) mmol/L Potassium 4.7 D (3.6-5.0) mmol/L Chloride 98.8 (98-107) mmol/L Carbon Dioxide 30 (22-30) mmol/L BUN 18 (9-20) mg/dL Creatinine 0.7 L (0.8-1.3) mg/dL Glucose 155 H (75-100) mg/dL Calcium 9.5 (8.4-10.2) mg/dL - Allied health notes Allied health notes reviewed: nursing
--- NOTE | 2020-01-18 12:48 | Progress Note ---
Assessment and Plan Acute hypoxemic respiratory failure Bilateral pneumonia, community acquired. Acute LLL branch P.E. Acute DVT Person under investigation for COVID-19 infection. Acute congestive heart failure exacerbation. History of cerebrovascular accident. Acute chronic obstructive pulmonary disease exacerbation. Hypertension and hypertensive urgency at presentation. History of arthritis. Leukocytosis. Lactic acidosis. Oropharyngeal dysphagia - agree with diuresis but change to 20 mg IV bid re: BP issues - resume t-piece trials in am as tolerated - continue Robinul & Scopolamine for secretion control - continue full anticoagulation with Apixaban - continue care as below otherwise; - continue daily SAT's and SBT assessment as tolerated - continue seroquel for anxiolysis / delirium - COVID isolation per facility protocol - prn diuresis while following electrolytes / I's & O's - continue to wean oxygen for O2 sat's > 92% - continue bronchodilators with routine trach care and pulmonary hygiene per RT - VAP bundle addressed (Aspiration precautions, HOB >40) - continue to wean per pulmonary driven protocols - sedation target is RASS 0 to -1 - continue prn analgesia per CPOT score - follow clinically re: fever curves / trend WBC - Avoid delirium (no benzodiazepines if they can be avoided) - Maintain sleep-wake cycle - enteral nutrition at goal rate as tolerated - continue accucheck's with glycemic control per SSI for target blood glucose goal of 140-180 mg/dL while critically ill; Avoid hypoglycemia - for VTE he is on IV Heparin - continue stress ulcer prophylaxis with Famotidine - continue mobility protocols for pressure ulcer prophylaxis - continue fall precautions - continue wound care management per RN / WCT - Supportive transfusions to keep HgB>7g/dL - CXR's and ABG's prn - Continue to monitor neurologic function - Continue chronic home medications - Continue all supportive care ........ re-evaluate in am & prn CONDITION: CRITICAL PROGNOSIS: GUARDED CODE STATUS: FULL CODE The high probability of a clinically significant, sudden or life threatening deterioration of the [Respiratory, cardiovascular & neurological] system(s) required my full and direct attention, intervention and personal management. The aggregate critical care time was [31] minutes without overlap. Time includes spent on [x] Data Review and interpretation [x] Patient assessment and monitoring of vital signs [x] Documentation [x] Medication orders and management Subjective Date of service: 01/18/20 Principal diagnosis: Ac hypoxemic resp failure; Pneumonia; PUI COVID-19; CHF; COPD; HTN Interval history: Patient is seen today for: Acute hypoxemic respiratory failure; Adan. Pneumonia (CAP); PUI COVID-19 infection; AE-CHF; AE-COPD; H/O CVA; HTN Seen and examined at bedside; 24 hour events reviewed; nursing and respiratory care staff consulted; no adverse overnight events reported to me; resting peacefully in bed; remains non MVS; back on PSV this morning and tolerating at 12/28; CXR demonstrates persistent bilateral infiltrates and small effusions now Objective Vital Signs - 12hr 01/18/20 01/18/20 01/18/20 00:45 01:00 01:15 Temperature Pulse Rate 96 H 98 H 103 H Pulse Rate [ Anterior Bilateral Throughout] Pulse Rate [ From Monitor] Respiratory 23 16 25 H Rate Respiratory Rate [Anterior Bilateral Throughout] Blood Pressure 109/73 102/65 102/65 O2 Sat by Pulse 97 97 Oximetry O2 Sat by Pulse Oximetry [ Assessment] O2 Sat by Pulse Oximetry [ Downsized] 01/18/20 01/18/20 01/18/20 01:31 01:39 01:45 Temperature Pulse Rate 112 H 111 H 108 H Pulse Rate [ Anterior Bilateral Throughout] Pulse Rate [ From Monitor] Respiratory 20 24 Rate Respiratory Rate [Anterior Bilateral Throughout] Blood Pressure 102/65 102/65 102/65 O2 Sat by Pulse 96 95 Oximetry O2 Sat by Pulse Oximetry [ Assessment] O2 Sat by Pulse Oximetry [ Downsized] 01/18/20 01/18/20 01/18/20 02:00 02:15 02:31 Temperature Pulse Rate 100 H 98 H 98 H Pulse Rate [ Anterior Bilateral Throughout] Pulse Rate [ From Monitor] Respiratory 23 22 25 H Rate Respiratory Rate [Anterior Bilateral Throughout] Blood Pressure 102/67 102/65 102/65 O2 Sat by Pulse 96 96 96 Oximetry O2 Sat by Pulse Oximetry [ Assessment] O2 Sat by Pulse Oximetry [ Downsized] 01/18/20 01/18/20 01/18/20 02:45 03:00 03:15 Temperature Pulse Rate 99 H 108 H 111 H Pulse Rate [ Anterior Bilateral Throughout] Pulse Rate [ From Monitor] Respiratory 23 22 23 Rate Respiratory Rate [Anterior Bilateral Throughout] Blood Pressure 102/65 117/89 117/89 O2 Sat by Pulse 96 96 98 Oximetry O2 Sat by Pulse Oximetry [ Assessment] O2 Sat by Pulse Oximetry [ Downsized] 01/18/20 01/18/20 01/18/20 03:31 03:34 03:40 Temperature 98.4 F Pulse Rate 101 H 101 H Pulse Rate [ Anterior Bilateral Throughout] Pulse Rate [ From Monitor] Respiratory 17 Rate Respiratory Rate [Anterior Bilateral Throughout] Blood Pressure 117/89 117/89 O2 Sat by Pulse 100 100 Oximetry O2 Sat by Pulse Oximetry [ Assessment] O2 Sat by Pulse 99 Oximetry [ Downsized] 01/18/20 01/18/20 01/18/20 03:45 04:00 04:15 Temperature Pulse Rate 99 H 96 H 98 H Pulse Rate [ Anterior Bilateral Throughout] Pulse Rate [ 96 H From Monitor] Respiratory 22 21 24 Rate Respiratory Rate [Anterior Bilateral Throughout] Blood Pressure 117/89 102/72 102/72 O2 Sat by Pulse 100 100 100 Oximetry O2 Sat by Pulse Oximetry [ Assessment] O2 Sat by Pulse Oximetry [ Downsized] 01/18/20 01/18/20 01/18/20 04:31 04:45 05:01 Temperature Pulse Rate 101 H 104 H 115 H Pulse Rate [ Anterior Bilateral Throughout] Pulse Rate [ From Monitor] Respiratory 19 22 29 H Rate Respiratory Rate [Anterior Bilateral Throughout] Blood Pressure 102/72 102/72 136/97 O2 Sat by Pulse Oximetry O2 Sat by Pulse Oximetry [ Assessment] O2 Sat by Pulse Oximetry [ Downsized] 01/18/20 01/18/20 01/18/20 05:15 05:28 05:31 Temperature Pulse Rate 120 H 123 H Pulse Rate [ 117 H Anterior Bilateral Throughout] Pulse Rate [ From Monitor] Respiratory 21 28 H Rate Respiratory 24 Rate [Anterior Bilateral Throughout] Blood Pressure 136/97 136/97 O2 Sat by Pulse Oximetry O2 Sat by Pulse Oximetry [ Assessment] O2 Sat by Pulse Oximetry [ Downsized] 01/18/20 01/18/20 01/18/20 05:45 06:00 06:15 Temperature Pulse Rate 113 H 114 H 108 H Pulse Rate [ Anterior Bilateral Throughout] Pulse Rate [ From Monitor] Respiratory 27 H 31 H 26 H Rate Respiratory Rate [Anterior Bilateral Throughout] Blood Pressure 136/97 132/95 130/84 O2 Sat by Pulse 98 91 90 Oximetry O2 Sat by Pulse Oximetry [ Assessment] O2 Sat by Pulse Oximetry [ Downsized] 01/18/20 01/18/20 01/18/20 06:31 06:45 06:48 Temperature Pulse Rate 115 H 115 H 112 H Pulse Rate [ Anterior Bilateral Throughout] Pulse Rate [ From Monitor] Respiratory 27 H 29 H Rate Respiratory Rate [Anterior Bilateral Throughout] Blood Pressure 130/84 130/84 130/84 O2 Sat by Pulse 87 100 Oximetry O2 Sat by Pulse Oximetry [ Assessment] O2 Sat by Pulse Oximetry [ Downsized] 01/18/20 01/18/20 01/18/20 07:00 07:15 07:31 Temperature Pulse Rate 102 H 98 H 94 H Pulse Rate [ Anterior Bilateral Throughout] Pulse Rate [ From Monitor] Respiratory 24 23 25 H Rate Respiratory Rate [Anterior Bilateral Throughout] Blood Pressure 137/77 137/77 137/77 O2 Sat by Pulse 91 92 Oximetry O2 Sat by Pulse Oximetry [ Assessment] O2 Sat by Pulse Oximetry [ Downsized] 01/18/20 01/18/20 01/18/20 07:45 08:00 08:15 Temperature 98.4 F Pulse Rate 94 H 98 H 102 H Pulse Rate [ Anterior Bilateral Throughout] Pulse Rate [ From Monitor] Respiratory 20 20 28 H Rate Respiratory Rate [Anterior Bilateral Throughout] Blood Pressure 137/77 110/75 110/75 O2 Sat by Pulse 92 94 94 Oximetry O2 Sat by Pulse 96 Oximetry [ Assessment] O2 Sat by Pulse Oximetry [ Downsized] 01/18/20 01/18/20 01/18/20 08:30 08:31 08:45 Temperature Pulse Rate 96 H 98 H 96 H Pulse Rate [ Anterior Bilateral Throughout] Pulse Rate [ From Monitor] Respiratory 26 H 25 H 21 Rate Respiratory Rate [Anterior Bilateral Throughout] Blood Pressure 123/75 110/75 110/75 O2 Sat by Pulse 97 95 99 Oximetry O2 Sat by Pulse Oximetry [ Assessment] O2 Sat by Pulse Oximetry [ Downsized] 01/18/20 01/18/20 01/18/20 09:00 09:15 09:31 Temperature Pulse Rate 96 H 97 H 97 H Pulse Rate [ Anterior Bilateral Throughout] Pulse Rate [ From Monitor] Respiratory 14 20 24 Rate Respiratory Rate [Anterior Bilateral Throughout] Blood Pressure 123/75 123/75 123/75 O2 Sat by Pulse 97 98 94 Oximetry O2 Sat by Pulse Oximetry [ Assessment] O2 Sat by Pulse Oximetry [ Downsized] 01/18/20 01/18/2020 09:45 10:00 10:15 Temperature Pulse Rate 97 H 96 H 95 H Pulse Rate [ Anterior Bilateral Throughout] Pulse Rate [ From Monitor] Respiratory 24 17 22 Rate Respiratory Rate [Anterior Bilateral Throughout] Blood Pressure 123/75 116/79 116/79 O2 Sat by Pulse 97 97 99 Oximetry O2 Sat by Pulse Oximetry [ Assessment] O2 Sat by Pulse Oximetry [ Downsized] 01/18/20 01/18/20 01/18/20 10:31 10:45 11:00 Temperature Pulse Rate 95 H 97 H 96 H Pulse Rate [ Anterior Bilateral Throughout] Pulse Rate [ From Monitor] Respiratory 20 21 20 Rate Respiratory Rate [Anterior Bilateral Throughout] Blood Pressure 116/79 116/79 106/71 O2 Sat by Pulse 95 97 100 Oximetry O2 Sat by Pulse Oximetry [ Assessment] O2 Sat by Pulse Oximetry [ Downsized] 01/18/20 01/18/20 12:00 12:28 Temperature 98.6 F Pulse Rate 110 H Pulse Rate [ Anterior Bilateral Throughout] Pulse Rate [ From Monitor] Respiratory 21 Rate Respiratory Rate [Anterior Bilateral Throughout] Blood Pressure 99/75 O2 Sat by Pulse 96 Oximetry O2 Sat by Pulse Oximetry [ Assessment] O2 Sat by Pulse Oximetry [ Downsized] Constitutional: no acute distress, other (elelderly and obese male, normocephalic with mildly increased respiratory effort at rest on MVS) Eyes: non-icteric ENT: oropharynx moist, other (trach to MVS) Neck: supple, no JVD Effort: mildly labored Ascultation: Bilateral: diminished breath sounds, rhonchi Percussion: Bilateral: not dull Cardiovascular: irregular rhythm, other (S1,S2) Gastrointestinal: normoactive bowel sounds, soft, non-tender, non-distended (protuberant), other (protuberant; PEG in place) Integumentary: normal Extremities: no cyanosis, pulses normal, no ischemia or petechiae, edema (bila teral upper ) Neurologic: non-focal exam (moves extremities), pupils equal and round, CN II- XII normal, motor strength normal and (weak) Psychiatric: mood appropriate, affect normal CBC and BMP: 01/18/20 06:46 01/18/20 06:46 ABG, PT/INR, D-dimer: ABG ABG pH 7.449 pH Units (7.350-7.450) 01/13/20 20:40 POC ABG pCO2 45.6 mmHg (32.0-48.0) 01/12/20 13:58 ABG pCO2 46.9 mm Hg 01/13/20 20:40 POC ABG pO2 76.6 mmHg (83-108) L 01/12/20 13:58 ABG pO2 65.3 mm Hg (80.0-90.0) L 01/13/20 20:40 POC ABG HCO3 31.2 01/12/20 13:58 ABG O2 Saturation 93.5 % (95.0-99.0) L 01/13/20 20:40 PT/INR, D-dimer PT 13.8 Sec. (12.2-14.9) 12/21/19 10:13 INR 1.05 (0.87-1.13) 12/21/19 10:13 Abnormal lab findings: Abnormal Labs 11/24/19 11/24/19 11/24/19 02:53 02:53 03:45 WBC 14.3 H RBC Hgb Hct MCHC RDW 17.2 H MCV MCH Lymph % (Auto) [place] % (Auto) [place] # Eos # Lymph # (Auto) [place] # (Auto) Eos # (Auto) Seg Neutrophils % Seg Neuts % (Manual) Baso # (Auto) Lymphocytes % (Manual) Monocytes % (Manual) Eosinophils % (Manual) Basophils % (Manual) Seg Neutrophils # Seg Neutrophils # Man 8.3 H Lymphocytes # (Manual) Monocytes # (Manual) 0.9 H Eosinophils # (Manual) Nucleated RBC % Basophils # (Manual) APTT Heparin Anti-Xa Level ABG pH 7.313 L POC ABG pO2 ABG pO2 102.8 H ABG HCO3 ABG O2 Saturation ABG Base Excess -2.9 L POC ABG pCO2 ABG Hemoglobin ABG Oxyhemoglobin ABG Glucose Oxyhemoglobin 93.9 L Sodium Potassium Chloride Carbon Dioxide BUN Creatinine Glucose 195 H POC Glucose Lactic Acid Calcium Phosphorus Magnesium AST ALT Lactate Dehydrogenase CK-MB (CK-2) 4.3 H C-Reactive Protein NT-Pro-B Natriuret Pep 1181 H Total Protein Albumin Arterial Blood Glucose Urine WBC (Auto) 11/24/19 11/24/19 11/24/19 04:53 04:53 10:37 WBC RBC Hgb Hct MCHC RDW MCV MCH Lymph % (Auto) [place] % (Auto) [place] # Eos # Lymph # (Auto) [place] # (Auto) Eos # (Auto) Seg Neutrophils % Seg Neuts % (Manual) Baso # (Auto) Lymphocytes % (Manual) Monocytes % (Manual) Eosinophils % (Manual) Basophils % (Manual) Seg Neutrophils # Seg Neutrophils # Man Lymphocytes # (Manual) Monocytes # (Manual) Eosinophils # (Manual) Nucleated RBC % Basophils # (Manual) APTT Heparin Anti-Xa Level ABG pH POC ABG pO2 ABG pO2 ABG HCO3 ABG O2 Saturation ABG Base Excess POC ABG pCO2 ABG Hemoglobin ABG Oxyhemoglobin ABG Glucose Oxyhemoglobin Sodium Potassium Chloride Carbon Dioxide BUN Creatinine Glucose 162 H POC Glucose Lactic Acid 2.40 H* 2.50 H* Calcium Phosphorus Magnesium AST ALT Lactate Dehydrogenase 240 H CK-MB (CK-2) C-Reactive Protein NT-Pro-B Natriuret Pep Total Protein Albumin Arterial Blood Glucose Urine WBC (Auto) 11/24/19 11/24/19 11/24/19 12:21 14:50 19:54 WBC RBC Hgb Hct MCHC RDW MCV MCH Lymph % (Auto) [place] % (Auto) [place] # Eos # Lymph # (Auto) [place] # (Auto) Eos # (Auto) Seg Neutrophils % Seg Neuts % (Manual) Baso # (Auto) Lymphocytes % (Manual) Monocytes % (Manual) Eosinophils % (Manual) Basophils % (Manual) Seg Neutrophils # Seg Neutrophils # Man Lymphocytes # (Manual) Monocytes # (Manual) Eosinophils # (Manual) Nucleated RBC % Basophils # (Manual) APTT Heparin Anti-Xa Level ABG pH POC ABG pO2 ABG pO2 ABG HCO3 ABG O2 Saturation ABG Base Excess POC ABG pCO2 ABG Hemoglobin ABG Oxyhemoglobin ABG Glucose Oxyhemoglobin Sodium Potassium Chloride Carbon Dioxide BUN Creatinine Glucose POC Glucose 145 H 143 H 124 H Lactic Acid Calcium Phosphorus Magnesium AST ALT Lactate Dehydrogenase CK-MB (CK-2) C-Reactive Protein NT-Pro-B Natriuret Pep Total Protein Albumin Arterial Blood Glucose Urine WBC (Auto) 11/25/19 11/25/19 11/25/19 00:18 03:18 05:11 WBC 13.7 H RBC Hgb Hct MCHC RDW 17.1 H MCV MCH Lymph % (Auto) 10.8 L [place] % (Auto) 8.7 H [place] # 1.2 H Eos # Lymph # (Auto) [place] # (Auto) Eos # (Auto) Seg Neutrophils % 80.2 H Seg Neuts % (Manual) Baso # (Auto) Lymphocytes % (Manual) Monocytes % (Manual) Eosinophils % (Manual) Basophils % (Manual) Seg Neutrophils # 11.0 H Seg Neutrophils # Man Lymphocytes # (Manual) Monocytes # (Manual) Eosinophils # (Manual) Nucleated RBC % Basophils # (Manual) APTT Heparin Anti-Xa Level ABG pH 7.333 L POC ABG pO2 ABG pO2 61.2 L ABG HCO3 ABG O2 Saturation 90.2 L ABG Base Excess POC ABG pCO2 ABG Hemoglobin 13.7 L ABG Oxyhemoglobin ABG Glucose Oxyhemoglobin 88.2 L Sodium Potassium Chloride Carbon Dioxide BUN Creatinine Glucose POC Glucose 109 H Lactic Acid Calcium Phosphorus Magnesium AST ALT Lactate Dehydrogenase CK-MB (CK-2) C-Reactive Protein NT-Pro-B Natriuret Pep Total Protein Albumin Arterial Blood Glucose Urine WBC (Auto) 11/25/19 11/25/19 11/26/19 05:11 11:40 03:12 WBC RBC Hgb Hct MCHC RDW MCV MCH Lymph % (Auto) [place] % (Auto) [place] # Eos # Lymph # (Auto) [place] # (Auto) Eos # (Auto) Seg Neutrophils % Seg Neuts % (Manual) Baso # (Auto) Lymphocytes % (Manual) Monocytes % (Manual) Eosinophils % (Manual) Basophils % (Manual) Seg Neutrophils # Seg Neutrophils # Man Lymphocytes # (Manual) Monocytes # (Manual) Eosinophils # (Manual) Nucleated RBC % Basophils # (Manual) APTT Heparin Anti-Xa Level ABG pH POC ABG pO2 ABG pO2 155.1 H ABG HCO3 27.8 H ABG O2 Saturation ABG Base Excess POC ABG pCO2 ABG Hemoglobin 12.2 L ABG Oxyhemoglobin ABG Glucose Oxyhemoglobin Sodium Potassium Chloride Carbon Dioxide BUN 23 H Creatinine Glucose 110 H POC Glucose 108 H Lactic Acid Calcium Phosphorus Magnesium AST ALT Lactate Dehydrogenase CK-MB (CK-2) C-Reactive Protein NT-Pro-B Natriuret Pep Total Protein Albumin Arterial Blood Glucose Urine WBC (Auto) 11/26/19 11/26/19 11/26/19 06:17 10:43 10:43 WBC 11.4 H RBC Hgb Hct MCHC RDW 17.1 H MCV MCH Lymph % (Auto) [place] % (Auto) [place] # Eos # Lymph # (Auto) [place] # (Auto) Eos # (Auto) Seg Neutrophils % Seg Neuts % (Manual) Baso # (Auto) Lymphocytes % (Manual) Monocytes % (Manual) Eosinophils % (Manual) Basophils % (Manual) Seg Neutrophils # Seg Neutrophils # Man Lymphocytes # (Manual) Monocytes # (Manual) Eosinophils # (Manual) Nucleated RBC % Basophils # (Manual) APTT Heparin Anti-Xa Level ABG pH POC ABG pO2 ABG pO2 ABG HCO3 ABG O2 Saturation ABG Base Excess POC ABG pCO2 ABG Hemoglobin ABG Oxyhemoglobin ABG Glucose Oxyhemoglobin Sodium Potassium Chloride Carbon Dioxide BUN 29 H Creatinine Glucose POC Glucose 107 H Lactic Acid Calcium Phosphorus Magnesium AST ALT Lactate Dehydrogenase CK-MB (CK-2) C-Reactive Protein NT-Pro-B Natriuret Pep Total Protein Albumin Arterial Blood Glucose Urine WBC (Auto) 11/26/19 11/27/19 11/27/19 17:11 01:53 04:11 WBC RBC Hgb Hct MCHC RDW MCV MCH Lymph % (Auto) [place] % (Auto) [place] # Eos # Lymph # (Auto) [place] # (Auto) Eos # (Auto) Seg Neutrophils % Seg Neuts % (Manual) Baso # (Auto) Lymphocytes % (Manual) Monocytes % (Manual) Eosinophils % (Manual) Basophils % (Manual) Seg Neutrophils # Seg Neutrophils # Man Lymphocytes # (Manual) Monocytes # (Manual) Eosinophils # (Manual) Nucleated RBC % Basophils # (Manual) APTT Heparin Anti-Xa Level ABG pH POC ABG pO2 ABG pO2 ABG HCO3 29.2 H ABG O2 Saturation ABG Base Excess 3.4 H POC ABG pCO2 ABG Hemoglobin 13.3 L ABG Oxyhemoglobin ABG Glucose Oxyhemoglobin 94.5 L Sodium Potassium Chloride Carbon Dioxide BUN Creatinine Glucose POC Glucose 113 H 108 H Lactic Acid Calcium Phosphorus Magnesium AST ALT Lactate Dehydrogenase CK-MB (CK-2) C-Reactive Protein NT-Pro-B Natriuret Pep Total Protein Albumin Arterial Blood Glucose Urine WBC (Auto) 11/27/19 11/28/19 11/28/19 05:27 05:00 05:25 WBC RBC Hgb Hct MCHC RDW MCV MCH Lymph % (Auto) [place] % (Auto) [place] # Eos # Lymph # (Auto) [place] # (Auto) Eos # (Auto) Seg Neutrophils % Seg Neuts % (Manual) Baso # (Auto) Lymphocytes % (Manual) Monocytes % (Manual) Eosinophils % (Manual) Basophils % (Manual) Seg Neutrophils # Seg Neutrophils # Man Lymphocytes # (Manual) Monocytes # (Manual) Eosinophils # (Manual) Nucleated RBC % Basophils # (Manual) APTT Heparin Anti-Xa Level ABG pH POC ABG pO2 68.1 L ABG pO2 ABG HCO3 ABG O2 Saturation ABG Base Excess POC ABG pCO2 ABG Hemoglobin ABG Oxyhemoglobin 91.2 L ABG Glucose Oxyhemoglobin Sodium Potassium Chloride Carbon Dioxide BUN Creatinine Glucose POC Glucose 111 H 110 H Lactic Acid Calcium Phosphorus Magnesium AST ALT Lactate Dehydrogenase CK-MB (CK-2) C-Reactive Protein NT-Pro-B Natriuret Pep Total Protein Albumin Arterial Blood Glucose Urine WBC (Auto) 11/28/19 11/28/19 11/28/19 12:08 13:47 13:47 WBC 11.3 H RBC Hgb Hct MCHC RDW 16.1 H MCV MCH Lymph % (Auto) [place] % (Auto) 9.9 H [place] # 1.1 H Eos # Lymph # (Auto) [place] # (Auto) Eos # (Auto) Seg Neutrophils % 71.4 H Seg Neuts % (Manual) Baso # (Auto) Lymphocytes % (Manual) Monocytes % (Manual) Eosinophils % (Manual) Basophils % (Manual) Seg Neutrophils # 8.1 H Seg Neutrophils # Man Lymphocytes # (Manual) Monocytes # (Manual) Eosinophils # (Manual) Nucleated RBC % Basophils # (Manual) APTT Heparin Anti-Xa Level ABG pH POC ABG pO2 ABG pO2 ABG HCO3 ABG O2 Saturation ABG Base Excess POC ABG pCO2 ABG Hemoglobin ABG Oxyhemoglobin ABG Glucose Oxyhemoglobin Sodium Potassium Chloride Carbon Dioxide BUN 23 H Creatinine Glucose 123 H POC Glucose 112 H Lactic Acid Calcium Phosphorus Magnesium AST ALT Lactate Dehydrogenase CK-MB (CK-2) C-Reactive Protein NT-Pro-B Natriuret Pep Total Protein Albumin 3.7 L Arterial Blood Glucose Urine WBC (Auto) 11/28/19 11/29/19 11/29/19 17:26 03:55 17:04 WBC RBC Hgb Hct MCHC RDW MCV MCH Lymph % (Auto) [place] % (Auto) [place] # Eos # Lymph # (Auto) [place] # (Auto) Eos # (Auto) Seg Neutrophils % Seg Neuts % (Manual) Baso # (Auto) Lymphocytes % (Manual) Monocytes % (Manual) Eosinophils % (Manual) Basophils % (Manual) Seg Neutrophils # Seg Neutrophils # Man Lymphocytes # (Manual) Monocytes # (Manual) Eosinophils # (Manual) Nucleated RBC % Basophils # (Manual) APTT Heparin Anti-Xa Level ABG pH POC ABG pO2 ABG pO2 65.7 L ABG HCO3 28.3 H ABG O2 Saturation 93.9 L ABG Base Excess 3.6 H POC ABG pCO2 ABG Hemoglobin 13.3 L ABG Oxyhemoglobin ABG Glucose Oxyhemoglobin 91.5 L Sodium Potassium Chloride Carbon Dioxide BUN Creatinine Glucose POC Glucose 123 H 119 H Lactic Acid Calcium Phosphorus Magnesium AST ALT Lactate Dehydrogenase CK-MB (CK-2) C-Reactive Protein NT-Pro-B Natriuret Pep Total Protein Albumin Arterial Blood Glucose Urine WBC (Auto) 11/30/19 11/30/19 11/30/19 04:17 04:17 04:56 WBC 13.4 H RBC Hgb Hct MCHC RDW 15.6 H MCV MCH Lymph % (Auto) [place] % (Auto) [place] # Eos # Lymph # (Auto) [place] # (Auto) Eos # (Auto) Seg Neutrophils % Seg Neuts % (Manual) Baso # (Auto) Lymphocytes % (Manual) Monocytes % (Manual) Eosinophils % (Manual) Basophils % (Manual) Seg Neutrophils # Seg Neutrophils # Man Lymphocytes # (Manual) Monocytes # (Manual) Eosinophils # (Manual) Nucleated RBC % Basophils # (Manual) APTT Heparin Anti-Xa Level ABG pH POC ABG pO2 ABG pO2 56.3 L ABG HCO3 29.3 H ABG O2 Saturation 91.5 L ABG Base Excess 4.7 H POC ABG pCO2 ABG Hemoglobin 12.1 L ABG Oxyhemoglobin ABG Glucose Oxyhemoglobin 89.2 L Sodium 147 H Potassium Chloride Carbon Dioxide BUN 30 H Creatinine Glucose 124 H POC Glucose Lactic Acid Calcium Phosphorus Magnesium AST ALT Lactate Dehydrogenase CK-MB (CK-2) C-Reactive Protein NT-Pro-B Natriuret Pep Total Protein Albumin 3.8 L Arterial Blood Glucose Urine WBC (Auto) 11/30/19 11/30/19 11/30/19 05:51 11:54 18:17 WBC RBC Hgb Hct MCHC RDW MCV MCH Lymph % (Auto) [place] % (Auto) [place] # Eos # Lymph # (Auto) [place] # (Auto) Eos # (Auto) Seg Neutrophils % Seg Neuts % (Manual) Baso # (Auto) Lymphocytes % (Manual) Monocytes % (Manual) Eosinophils % (Manual) Basophils % (Manual) Seg Neutrophils # Seg Neutrophils # Man Lymphocytes # (Manual) Monocytes # (Manual) Eosinophils # (Manual) Nucleated RBC % Basophils # (Manual) APTT Heparin Anti-Xa Level ABG pH POC ABG pO2 ABG pO2 ABG HCO3 ABG O2 Saturation ABG Base Excess POC ABG pCO2 ABG Hemoglobin ABG Oxyhemoglobin ABG Glucose Oxyhemoglobin Sodium Potassium Chloride Carbon Dioxide BUN Creatinine Glucose POC Glucose 127 H 115 H 143 H Lactic Acid Calcium Phosphorus Magnesium AST ALT Lactate Dehydrogenase CK-MB (CK-2) C-Reactive Protein NT-Pro-B Natriuret Pep Total Protein Albumin Arterial Blood Glucose Urine WBC (Auto) 12/01/19 12/01/19 12/01/19 01:18 05:22 12:16 WBC RBC Hgb Hct MCHC RDW MCV MCH Lymph % (Auto) [place] % (Auto) [place] # Eos # Lymph # (Auto) [place] # (Auto) Eos # (Auto) Seg Neutrophils % Seg Neuts % (Manual) Baso # (Auto) Lymphocytes % (Manual) Monocytes % (Manual) Eosinophils % (Manual) Basophils % (Manual) Seg Neutrophils # Seg Neutrophils # Man Lymphocytes # (Manual) Monocytes # (Manual) Eosinophils # (Manual) Nucleated RBC % Basophils # (Manual) APTT Heparin Anti-Xa Level ABG pH POC ABG pO2 ABG pO2 ABG HCO3 ABG O2 Saturation ABG Base Excess POC ABG pCO2 ABG Hemoglobin ABG Oxyhemoglobin ABG Glucose Oxyhemoglobin Sodium Potassium 3.5 L Chloride 107.8 H Carbon Dioxide BUN 37 H Creatinine Glucose 157 H POC Glucose 118 H 148 H Lactic Acid Calcium 8.2 L D Phosphorus Magnesium AST 48 H ALT 60 H Lactate Dehydrogenase 194 H CK-MB (CK-2) C-Reactive Protein 8.50 H NT-Pro-B Natriuret Pep Total Protein 5.5 L Albumin 2.8 L Arterial Blood Glucose Urine WBC (Auto) 12/01/19 12/02/19 12/02/19 18:04 00:05 05:16 WBC 11.4 H RBC Hgb Hct MCHC RDW 15.9 H MCV MCH Lymph % (Auto) [place] % (Auto) 9.9 H [place] # 1.1 H Eos # Lymph # (Auto) [place] # (Auto) Eos # (Auto) Seg Neutrophils % 70.3 H Seg Neuts % (Manual) Baso # (Auto) Lymphocytes % (Manual) Monocytes % (Manual) Eosinophils % (Manual) Basophils % (Manual) Seg Neutrophils # 8.0 H Seg Neutrophils # Man Lymphocytes # (Manual) Monocytes # (Manual) Eosinophils # (Manual) Nucleated RBC % Basophils # (Manual) APTT Heparin Anti-Xa Level ABG pH POC ABG pO2 ABG pO2 ABG HCO3 ABG O2 Saturation ABG Base Excess POC ABG pCO2 ABG Hemoglobin ABG Oxyhemoglobin ABG Glucose Oxyhemoglobin Sodium Potassium Chloride Carbon Dioxide BUN Creatinine Glucose POC Glucose 143 H 107 H Lactic Acid Calcium Phosphorus Magnesium AST ALT Lactate Dehydrogenase CK-MB (CK-2) C-Reactive Protein NT-Pro-B Natriuret Pep Total Protein Albumin Arterial Blood Glucose Urine WBC (Auto) 12/02/19 12/02/19 12/02/19 05:16 06:03 11:52 WBC RBC Hgb Hct MCHC RDW MCV MCH Lymph % (Auto) [place] % (Auto) [place] # Eos # Lymph # (Auto) [place] # (Auto) Eos # (Auto) Seg Neutrophils % Seg Neuts % (Manual) Baso # (Auto) Lymphocytes % (Manual) Monocytes % (Manual) Eosinophils % (Manual) Basophils % (Manual) Seg Neutrophils # Seg Neutrophils # Man Lymphocytes # (Manual) Monocytes # (Manual) Eosinophils # (Manual) Nucleated RBC % Basophils # (Manual) APTT Heparin Anti-Xa Level ABG pH POC ABG pO2 ABG pO2 ABG HCO3 ABG O2 Saturation ABG Base Excess POC ABG pCO2 ABG Hemoglobin ABG Oxyhemoglobin ABG Glucose Oxyhemoglobin Sodium 146 H Potassium Chloride Carbon Dioxide BUN 28 H Creatinine Glucose 123 H POC Glucose 110 H 152 H Lactic Acid Calcium Phosphorus Magnesium AST ALT Lactate Dehydrogenase CK-MB (CK-2) C-Reactive Protein NT-Pro-B Natriuret Pep Total Protein Albumin Arterial Blood Glucose Urine WBC (Auto) 12/02/19 12/02/19 12/02/19 12:58 17:58 23:36 WBC RBC Hgb Hct MCHC RDW MCV MCH Lymph % (Auto) [place] % (Auto) [place] # Eos # Lymph # (Auto) [place] # (Auto) Eos # (Auto) Seg Neutrophils % Seg Neuts % (Manual) Baso # (Auto) Lymphocytes % (Manual) Monocytes % (Manual) Eosinophils % (Manual) Basophils % (Manual) Seg Neutrophils # Seg Neutrophils # Man Lymphocytes # (Manual) Monocytes # (Manual) Eosinophils # (Manual) Nucleated RBC % Basophils # (Manual) APTT Heparin Anti-Xa Level ABG pH POC ABG pO2 78.1 L ABG pO2 ABG HCO3 ABG O2 Saturation ABG Base Excess POC ABG pCO2 ABG Hemoglobin ABG Oxyhemoglobin ABG Glucose Oxyhemoglobin Sodium Potassium Chloride Carbon Dioxide BUN Creatinine Glucose POC Glucose 120 H 123 H Lactic Acid Calcium Phosphorus Magnesium AST ALT Lactate Dehydrogenase CK-MB (CK-2) C-Reactive Protein NT-Pro-B Natriuret Pep Total Protein Albumin Arterial Blood Glucose Urine WBC (Auto) 12/03/19 12/03/19 12/03/19 06:03 06:14 11:46 WBC RBC Hgb Hct MCHC RDW MCV MCH Lymph % (Auto) [place] % (Auto) [place] # Eos # Lymph # (Auto) [place] # (Auto) Eos # (Auto) Seg Neutrophils % Seg Neuts % (Manual) Baso # (Auto) Lymphocytes % (Manual) Monocytes % (Manual) Eosinophils % (Manual) Basophils % (Manual) Seg Neutrophils # Seg Neutrophils # Man Lymphocytes # (Manual) Monocytes # (Manual) Eosinophils # (Manual) Nucleated RBC % Basophils # (Manual) APTT Heparin Anti-Xa Level ABG pH POC ABG pO2 ABG pO2 ABG HCO3 ABG O2 Saturation ABG Base Excess POC ABG pCO2 ABG Hemoglobin ABG Oxyhemoglobin ABG Glucose Oxyhemoglobin Sodium Potassium Chloride Carbon Dioxide BUN Creatinine Glucose POC Glucose 142 H 130 H Lactic Acid Calcium Phosphorus Magnesium AST ALT Lactate Dehydrogenase CK-MB (CK-2) C-Reactive Protein NT-Pro-B Natriuret Pep Total Protein Albumin Arterial Blood Glucose Urine WBC (Auto) 8.0 H 12/03/19 12/03/19 12/04/19 15:50 17:39 00:04 WBC RBC Hgb Hct MCHC RDW MCV MCH Lymph % (Auto) [place] % (Auto) [place] # Eos # Lymph # (Auto) [place] # (Auto) Eos # (Auto) Seg Neutrophils % Seg Neuts % (Manual) Baso # (Auto) Lymphocytes % (Manual) Monocytes % (Manual) Eosinophils % (Manual) Basophils % (Manual) Seg Neutrophils # Seg Neutrophils # Man Lymphocytes # (Manual) Monocytes # (Manual) Eosinophils # (Manual) Nucleated RBC % Basophils # (Manual) APTT Heparin Anti-Xa Level ABG pH POC ABG pO2 ABG pO2 ABG HCO3 ABG O2 Saturation ABG Base Excess POC ABG pCO2 ABG Hemoglobin ABG Oxyhemoglobin ABG Glucose Oxyhemoglobin Sodium Potassium Chloride Carbon Dioxide BUN Creatinine Glucose POC Glucose 146 H 133 H Lactic Acid Calcium Phosphorus 2.40 L Magnesium AST ALT Lactate Dehydrogenase CK-MB (CK-2) C-Reactive Protein NT-Pro-B Natriuret Pep Total Protein Albumin Arterial Blood Glucose Urine WBC (Auto) 12/04/19 12/04/19 12/04/19 03:58 03:58 05:22 WBC 12.5 H RBC Hgb 11.2 L Hct 35.2 L MCHC RDW 16.0 H MCV MCH Lymph % (Auto) [place] % (Auto) 9.6 H [place] # 1.2 H Eos # 0.5 H Lymph # (Auto) [place] # (Auto) Eos # (Auto) Seg Neutrophils % Seg Neuts % (Manual) Baso # (Auto) Lymphocytes % (Manual) Monocytes % (Manual) Eosinophils % (Manual) Basophils % (Manual) Seg Neutrophils # 8.6 H Seg Neutrophils # Man Lymphocytes # (Manual) Monocytes # (Manual) Eosinophils # (Manual) Nucleated RBC % Basophils # (Manual) APTT Heparin Anti-Xa Level ABG pH POC ABG pO2 ABG pO2 ABG HCO3 ABG O2 Saturation ABG Base Excess POC ABG pCO2 ABG Hemoglobin ABG Oxyhemoglobin ABG Glucose Oxyhemoglobin Sodium 146 H Potassium Chloride 108.6 H Carbon Dioxide BUN 30 H Creatinine 0.7 L Glucose 121 H POC Glucose 132 H Lactic Acid Calcium Phosphorus Magnesium AST ALT Lactate Dehydrogenase CK-MB (CK-2) C-Reactive Protein NT-Pro-B Natriuret Pep Total Protein Albumin Arterial Blood Glucose Urine WBC (Auto) 12/04/19 12/04/19 12/05/19 13:26 18:43 00:19 WBC RBC Hgb Hct MCHC RDW MCV MCH Lymph % (Auto) [place] % (Auto) [place] # Eos # Lymph # (Auto) [place] # (Auto) Eos # (Auto) Seg Neutrophils % Seg Neuts % (Manual) Baso # (Auto) Lymphocytes % (Manual) Monocytes % (Manual) Eosinophils % (Manual) Basophils % (Manual) Seg Neutrophils # Seg Neutrophils # Man Lymphocytes # (Manual) Monocytes # (Manual) Eosinophils # (Manual) Nucleated RBC % Basophils # (Manual) APTT Heparin Anti-Xa Level ABG pH POC ABG pO2 ABG pO2 ABG HCO3 ABG O2 Saturation ABG Base Excess POC ABG pCO2 ABG Hemoglobin ABG Oxyhemoglobin ABG Glucose Oxyhemoglobin Sodium Potassium Chloride Carbon Dioxide BUN Creatinine Glucose POC Glucose 185 H 156 H 150 H Lactic Acid Calcium Phosphorus Magnesium AST ALT Lactate Dehydrogenase CK-MB (CK-2) C-Reactive Protein NT-Pro-B Natriuret Pep Total Protein Albumin Arterial Blood Glucose Urine WBC (Auto) 12/05/19 12/05/19 12/05/19 03:37 03:37 05:14 WBC 16.3 H RBC Hgb 11.4 L Hct MCHC RDW 15.6 H MCV MCH Lymph % (Auto) 9.9 L [place] % (Auto) 9.7 H [place] # 1.6 H Eos # Lymph # (Auto) [place] # (Auto) Eos # (Auto) Seg Neutrophils % 78.0 H Seg Neuts % (Manual) Baso # (Auto) Lymphocytes % (Manual) Monocytes % (Manual) Eosinophils % (Manual) Basophils % (Manual) Seg Neutrophils # 12.7 H Seg Neutrophils # Man Lymphocytes # (Manual) Monocytes # (Manual) Eosinophils # (Manual) Nucleated RBC % Basophils # (Manual) APTT Heparin Anti-Xa Level ABG pH POC ABG pO2 ABG pO2 ABG HCO3 ABG O2 Saturation ABG Base Excess POC ABG pCO2 ABG Hemoglobin ABG Oxyhemoglobin ABG Glucose Oxyhemoglobin Sodium 146 H Potassium Chloride 107.2 H Carbon Dioxide BUN 27 H Creatinine 0.7 L Glucose 171 H POC Glucose 168 H Lactic Acid Calcium Phosphorus Magnesium AST ALT Lactate Dehydrogenase CK-MB (CK-2) C-Reactive Protein NT-Pro-B Natriuret Pep Total Protein Albumin Arterial Blood Glucose Urine WBC (Auto) 12/05/19 12/05/19 12/05/19 12:31 18:10 23:58 WBC RBC Hgb Hct MCHC RDW MCV MCH Lymph % (Auto) [place] % (Auto) [place] # Eos # Lymph # (Auto) [place] # (Auto) Eos # (Auto) Seg Neutrophils % Seg Neuts % (Manual) Baso # (Auto) Lymphocytes % (Manual) Monocytes % (Manual) Eosinophils % (Manual) Basophils % (Manual) Seg Neutrophils # Seg Neutrophils # Man Lymphocytes # (Manual) Monocytes # (Manual) Eosinophils # (Manual) Nucleated RBC % Basophils # (Manual) APTT Heparin Anti-Xa Level ABG pH POC ABG pO2 ABG pO2 ABG HCO3 ABG O2 Saturation ABG Base Excess POC ABG pCO2 ABG Hemoglobin ABG Oxyhemoglobin ABG Glucose Oxyhemoglobin Sodium Potassium Chloride Carbon Dioxide BUN Creatinine Glucose POC Glucose 159 H 198 H 115 H Lactic Acid Calcium Phosphorus Magnesium AST ALT Lactate Dehydrogenase CK-MB (CK-2) C-Reactive Protein NT-Pro-B Natriuret Pep Total Protein Albumin Arterial Blood Glucose Urine WBC (Auto) 12/06/19 12/06/19 12/06/19 05:24 05:24 05:25 WBC 14.9 H RBC Hgb 10.8 L Hct 34.0 L MCHC RDW 15.6 H MCV MCH Lymph % (Auto) 10.7 L [place] % (Auto) 8.3 H [place] # 1.2 H Eos # Lymph # (Auto) [place] # (Auto) Eos # (Auto) Seg Neutrophils % 78.7 H Seg Neuts % (Manual) Baso # (Auto) Lymphocytes % (Manual) Monocytes % (Manual) Eosinophils % (Manual) Basophils % (Manual) Seg Neutrophils # 11.7 H Seg Neutrophils # Man Lymphocytes # (Manual) Monocytes # (Manual) Eosinophils # (Manual) Nucleated RBC % Basophils # (Manual) APTT Heparin Anti-Xa Level ABG pH POC ABG pO2 ABG pO2 ABG HCO3 ABG O2 Saturation ABG Base Excess POC ABG pCO2 ABG Hemoglobin ABG Oxyhemoglobin ABG Glucose Oxyhemoglobin Sodium 148 H Potassium 5.1 H Chloride 107.6 H Carbon Dioxide BUN 27 H Creatinine 0.7 L Glucose 155 H POC Glucose 157 H Lactic Acid Calcium Phosphorus Magnesium AST ALT Lactate Dehydrogenase CK-MB (CK-2) C-Reactive Protein NT-Pro-B Natriuret Pep Total Protein Albumin Arterial Blood Glucose Urine WBC (Auto) 12/07/19 12/07/19 12/07/19 00:13 05:34 11:33 WBC RBC Hgb Hct MCHC RDW MCV MCH Lymph % (Auto) [place] % (Auto) [place] # Eos # Lymph # (Auto) [place] # (Auto) Eos # (Auto) Seg Neutrophils % Seg Neuts % (Manual) Baso # (Auto) Lymphocytes % (Manual) Monocytes % (Manual) Eosinophils % (Manual) Basophils % (Manual) Seg Neutrophils # Seg Neutrophils # Man Lymphocytes # (Manual) Monocytes # (Manual) Eosinophils # (Manual) Nucleated RBC % Basophils # (Manual) APTT Heparin Anti-Xa Level ABG pH POC ABG pO2 ABG pO2 ABG HCO3 ABG O2 Saturation ABG Base Excess POC ABG pCO2 ABG Hemoglobin ABG Oxyhemoglobin ABG Glucose Oxyhemoglobin Sodium Potassium Chloride Carbon Dioxide BUN Creatinine Glucose POC Glucose 142 H 111 H 169 H Lactic Acid Calcium Phosphorus Magnesium AST ALT Lactate Dehydrogenase CK-MB (CK-2) C-Reactive Protein NT-Pro-B Natriuret Pep Total Protein Albumin Arterial Blood Glucose Urine WBC (Auto) 12/07/19 12/07/19 12/07/19 12:41 13:25 18:19 WBC 12.4 H RBC 3.53 L Hgb 10.2 L Hct 32.1 L MCHC RDW 15.3 H MCV MCH Lymph % (Auto) 10.6 L [place] % (Auto) 7.8 H [place] # 1.0 H Eos # Lymph # (Auto) [place] # (Auto) Eos # (Auto) Seg Neutrophils % 77.6 H Seg Neuts % (Manual) Baso # (Auto) Lymphocytes % (Manual) Monocytes % (Manual) Eosinophils % (Manual) Basophils % (Manual) Seg Neutrophils # 9.6 H Seg Neutrophils # Man Lymphocytes # (Manual) Monocytes # (Manual) Eosinophils # (Manual) Nucleated RBC % Basophils # (Manual) APTT Heparin Anti-Xa Level ABG pH POC ABG pO2 ABG pO2 ABG HCO3 ABG O2 Saturation ABG Base Excess POC ABG pCO2 ABG Hemoglobin ABG Oxyhemoglobin ABG Glucose Oxyhemoglobin Sodium 149 H Potassium Chloride 108.4 H Carbon Dioxide BUN 26 H Creatinine 0.6 L Glucose 149 H POC Glucose 164 H Lactic Acid Calcium Phosphorus Magnesium 2.60 H AST 121 H ALT 145 H Lactate Dehydrogenase CK-MB (CK-2) C-Reactive Protein NT-Pro-B Natriuret Pep Total Protein Albumin 2.6 L Arterial Blood Glucose Urine WBC (Auto) 12/07/19 12/08/19 12/08/19 22:25 00:02 03:55 WBC 13.3 H RBC 3.40 L Hgb 9.7 L Hct 30.8 L MCHC 31 L RDW 15.5 H MCV MCH Lymph % (Auto) [place] % (Auto) 8.1 H [place] # 1.1 H Eos # Lymph # (Auto) [place] # (Auto) Eos # (Auto) Seg Neutrophils % 73.0 H Seg Neuts % (Manual) Baso # (Auto) Lymphocytes % (Manual) Monocytes % (Manual) Eosinophils % (Manual) Basophils % (Manual) Seg Neutrophils # 9.7 H Seg Neutrophils # Man Lymphocytes # (Manual) Monocytes # (Manual) Eosinophils # (Manual) Nucleated RBC % Basophils # (Manual) APTT Heparin Anti-Xa Level 0.12 L ABG pH POC ABG pO2 ABG pO2 ABG HCO3 ABG O2 Saturation ABG Base Excess POC ABG pCO2 ABG Hemoglobin ABG Oxyhemoglobin ABG Glucose Oxyhemoglobin Sodium Potassium Chloride Carbon Dioxide BUN Creatinine Glucose POC Glucose 151 H Lactic Acid Calcium Phosphorus Magnesium AST ALT Lactate Dehydrogenase CK-MB (CK-2) C-Reactive Protein NT-Pro-B Natriuret Pep Total Protein Albumin Arterial Blood Glucose Urine WBC (Auto) 12/08/19 12/08/19 12/08/19 03:55 05:21 06:01 WBC RBC Hgb Hct MCHC RDW MCV MCH Lymph % (Auto) [place] % (Auto) [place] # Eos # Lymph # (Auto) [place] # (Auto) Eos # (Auto) Seg Neutrophils % Seg Neuts % (Manual) Baso # (Auto) Lymphocytes % (Manual) Monocytes % (Manual) Eosinophils % (Manual) Basophils % (Manual) Seg Neutrophils # Seg Neutrophils # Man Lymphocytes # (Manual) Monocytes # (Manual) Eosinophils # (Manual) Nucleated RBC % Basophils # (Manual) APTT Heparin Anti-Xa Level 0.20 L ABG pH POC ABG pO2 ABG pO2 ABG HCO3 ABG O2 Saturation ABG Base Excess POC ABG pCO2 ABG Hemoglobin ABG Oxyhemoglobin ABG Glucose Oxyhemoglobin Sodium 149 H Potassium Chloride 108.0 H Carbon Dioxide BUN 28 H Creatinine 0.6 L Glucose 144 H POC Glucose 143 H Lactic Acid Calcium Phosphorus Magnesium AST 98 H ALT 145 H Lactate Dehydrogenase CK-MB (CK-2) C-Reactive Protein NT-Pro-B Natriuret Pep Total Protein 6.0 L Albumin 2.4 L Arterial Blood Glucose Urine WBC (Auto) 12/08/19 12/08/19 12/08/19 12:08 18:11 23:53 WBC RBC Hgb Hct MCHC RDW MCV MCH Lymph % (Auto) [place] % (Auto) [place] # Eos # Lymph # (Auto) [place] # (Auto) Eos # (Auto) Seg Neutrophils % Seg Neuts % (Manual) Baso # (Auto) Lymphocytes % (Manual) Monocytes % (Manual) Eosinophils % (Manual) Basophils % (Manual) Seg Neutrophils # Seg Neutrophils # Man Lymphocytes # (Manual) Monocytes # (Manual) Eosinophils # (Manual) Nucleated RBC % Basophils # (Manual) APTT Heparin Anti-Xa Level ABG pH POC ABG pO2 ABG pO2 ABG HCO3 ABG O2 Saturation ABG Base Excess POC ABG pCO2 ABG Hemoglobin ABG Oxyhemoglobin ABG Glucose Oxyhemoglobin Sodium Potassium Chloride Carbon Dioxide BUN Creatinine Glucose POC Glucose 172 H 122 H 162 H Lactic Acid Calcium Phosphorus Magnesium AST ALT Lactate Dehydrogenase CK-MB (CK-2) C-Reactive Protein NT-Pro-B Natriuret Pep Total Protein Albumin Arterial Blood Glucose Urine WBC (Auto) 12/09/19 12/09/19 12/09/19 04:03 04:03 05:53 WBC RBC Hgb 9.1 L Hct 28.9 L MCHC RDW MCV MCH Lymph % (Auto) [place] % (Auto) [place] # Eos # Lymph # (Auto) [place] # (Auto) Eos # (Auto) Seg Neutrophils % Seg Neuts % (Manual) Baso # (Auto) Lymphocytes % (Manual) Monocytes % (Manual) Eosinophils % (Manual) Basophils % (Manual) Seg Neutrophils # Seg Neutrophils # Man Lymphocytes # (Manual) Monocytes # (Manual) Eosinophils # (Manual) Nucleated RBC % Basophils # (Manual) APTT Heparin Anti-Xa Level 0.15 L ABG pH POC ABG pO2 ABG pO2 ABG HCO3 ABG O2 Saturation ABG Base Excess POC ABG pCO2 ABG Hemoglobin ABG Oxyhemoglobin ABG Glucose Oxyhemoglobin Sodium Potassium Chloride Carbon Dioxide BUN Creatinine Glucose POC Glucose 124 H Lactic Acid Calcium Phosphorus Magnesium AST ALT Lactate Dehydrogenase CK-MB (CK-2) C-Reactive Protein NT-Pro-B Natriuret Pep Total Protein Albumin Arterial Blood Glucose Urine WBC (Auto) 12/09/19 12/09/19 12/10/19 09:43 12:41 00:13 WBC RBC Hgb Hct MCHC RDW MCV MCH Lymph % (Auto) [place] % (Auto) [place] # Eos # Lymph # (Auto) [place] # (Auto) Eos # (Auto) Seg Neutrophils % Seg Neuts % (Manual) Baso # (Auto) Lymphocytes % (Manual) Monocytes % (Manual) Eosinophils % (Manual) Basophils % (Manual) Seg Neutrophils # Seg Neutrophils # Man Lymphocytes # (Manual) Monocytes # (Manual) Eosinophils # (Manual) Nucleated RBC % Basophils # (Manual) APTT Heparin Anti-Xa Level ABG pH POC ABG pO2 ABG pO2 ABG HCO3 ABG O2 Saturation ABG Base Excess POC ABG pCO2 ABG Hemoglobin ABG Oxyhemoglobin ABG Glucose Oxyhemoglobin Sodium Potassium Chloride Carbon Dioxide BUN 25 H Creatinine 0.6 L Glucose 131 H POC Glucose 109 H 120 H Lactic Acid Calcium Phosphorus Magnesium AST ALT Lactate Dehydrogenase CK-MB (CK-2) C-Reactive Protein NT-Pro-B Natriuret Pep Total Protein Albumin Arterial Blood Glucose Urine WBC (Auto) 12/10/19 12/10/19 12/10/19 04:14 04:14 12:00 WBC 13.3 H RBC 3.34 L Hgb 9.6 L Hct 30.4 L MCHC RDW 15.4 H MCV MCH Lymph % (Auto) [place] % (Auto) [place] # Eos # Lymph # (Auto) [place] # (Auto) Eos # (Auto) Seg Neutrophils % Seg Neuts % (Manual) 75.0 H Baso # (Auto) Lymphocytes % (Manual) 13.0 L Monocytes % (Manual) 8.0 H Eosinophils % (Manual) Basophils % (Manual) 2.0 H Seg Neutrophils # Seg Neutrophils # Man 10.0 H Lymphocytes # (Manual) Monocytes # (Manual) 1.1 H Eosinophils # (Manual) Nucleated RBC % Basophils # (Manual) 0.3 H APTT Heparin Anti-Xa Level ABG pH POC ABG pO2 ABG pO2 ABG HCO3 ABG O2 Saturation ABG Base Excess POC ABG pCO2 ABG Hemoglobin ABG Oxyhemoglobin ABG Glucose Oxyhemoglobin Sodium 147 H Potassium Chloride 108.3 H Carbon Dioxide BUN 21 H Creatinine 0.6 L Glucose 104 H POC Glucose 133 H Lactic Acid Calcium Phosphorus Magnesium AST ALT Lactate Dehydrogenase CK-MB (CK-2) C-Reactive Protein NT-Pro-B Natriuret Pep Total Protein Albumin Arterial Blood Glucose Urine WBC (Auto) 12/10/19 12/10/19 12/11/19 18:44 21:20 00:08 WBC 14.9 H RBC 3.36 L Hgb 9.6 L Hct 30.5 L MCHC RDW 15.4 H MCV MCH Lymph % (Auto) [place] % (Auto) [place] # Eos # Lymph # (Auto) [place] # (Auto) Eos # (Auto) Seg Neutrophils % Seg Neuts % (Manual) Baso # (Auto) Lymphocytes % (Manual) Monocytes % (Manual) Eosinophils % (Manual) Basophils % (Manual) Seg Neutrophils # Seg Neutrophils # Man Lymphocytes # (Manual) Monocytes # (Manual) Eosinophils # (Manual) Nucleated RBC % Basophils # (Manual) APTT Heparin Anti-Xa Level ABG pH POC ABG pO2 ABG pO2 ABG HCO3 ABG O2 Saturation ABG Base Excess POC ABG pCO2 ABG Hemoglobin ABG Oxyhemoglobin ABG Glucose Oxyhemoglobin Sodium Potassium Chloride Carbon Dioxide BUN Creatinine Glucose POC Glucose 119 H 134 H Lactic Acid Calcium Phosphorus Magnesium AST ALT Lactate Dehydrogenase CK-MB (CK-2) C-Reactive Protein NT-Pro-B Natriuret Pep Total Protein Albumin Arterial Blood Glucose Urine WBC (Auto) 12/11/19 12/11/19 12/11/19 03:54 07:28 08:36 WBC 11.9 H RBC 3.25 L Hgb 9.6 L Hct 29.2 L MCHC RDW 15.7 H MCV MCH Lymph % (Auto) [place] % (Auto) [place] # Eos # Lymph # (Auto) [place] # (Auto) Eos # (Auto) Seg Neutrophils % Seg Neuts % (Manual) Baso # (Auto) Lymphocytes % (Manual) Monocytes % (Manual) Eosinophils % (Manual) Basophils % (Manual) Seg Neutrophils # Seg Neutrophils # Man Lymphocytes # (Manual) Monocytes # (Manual) Eosinophils # (Manual) Nucleated RBC % Basophils # (Manual) APTT Heparin Anti-Xa Level 0.10 L 0.16 L ABG pH POC ABG pO2 ABG pO2 ABG HCO3 ABG O2 Saturation ABG Base Excess POC ABG pCO2 ABG Hemoglobin ABG Oxyhemoglobin ABG Glucose Oxyhemoglobin Sodium Potassium Chloride Carbon Dioxide BUN Creatinine Glucose POC Glucose Lactic Acid Calcium Phosphorus Magnesium AST ALT Lactate Dehydrogenase CK-MB (CK-2) C-Reactive Protein NT-Pro-B Natriuret Pep Total Protein Albumin Arterial Blood Glucose Urine WBC (Auto) 12/11/19 12/11/19 12/11/19 08:36 11:45 17:15 WBC RBC Hgb Hct MCHC RDW MCV MCH Lymph % (Auto) [place] % (Auto) [place] # Eos # Lymph # (Auto) [place] # (Auto) Eos # (Auto) Seg Neutrophils % Seg Neuts % (Manual) Baso # (Auto) Lymphocytes % (Manual) Monocytes % (Manual) Eosinophils % (Manual) Basophils % (Manual) Seg Neutrophils # Seg Neutrophils # Man Lymphocytes # (Manual) Monocytes # (Manual) Eosinophils # (Manual) Nucleated RBC % Basophils # (Manual) APTT Heparin Anti-Xa Level ABG pH POC ABG pO2 ABG pO2 ABG HCO3 ABG O2 Saturation ABG Base Excess POC ABG pCO2 ABG Hemoglobin ABG Oxyhemoglobin ABG Glucose Oxyhemoglobin Sodium Potassium Chloride Carbon Dioxide BUN Creatinine 0.5 L Glucose 128 H POC Glucose 136 H 109 H Lactic Acid Calcium Phosphorus Magnesium AST ALT Lactate Dehydrogenase CK-MB (CK-2) C-Reactive Protein NT-Pro-B Natriuret Pep Total Protein Albumin Arterial Blood Glucose Urine WBC (Auto) 12/12/19 12/12/19 12/12/19 00:03 05:53 05:53 WBC RBC Hgb 8.8 L Hct 27.6 L MCHC RDW MCV MCH Lymph % (Auto) [place] % (Auto) [place] # Eos # Lymph # (Auto) [place] # (Auto) Eos # (Auto) Seg Neutrophils % Seg Neuts % (Manual) Baso # (Auto) Lymphocytes % (Manual) Monocytes % (Manual) Eosinophils % (Manual) Basophils % (Manual) Seg Neutrophils # Seg Neutrophils # Man Lymphocytes # (Manual) Monocytes # (Manual) Eosinophils # (Manual) Nucleated RBC % Basophils # (Manual) APTT Heparin Anti-Xa Level 0.22 L ABG pH POC ABG pO2 ABG pO2 ABG HCO3 ABG O2 Saturation ABG Base Excess POC ABG pCO2 ABG Hemoglobin ABG Oxyhemoglobin ABG Glucose Oxyhemoglobin Sodium Potassium Chloride Carbon Dioxide BUN Creatinine Glucose POC Glucose 116 H Lactic Acid Calcium Phosphorus Magnesium AST ALT Lactate Dehydrogenase CK-MB (CK-2) C-Reactive Protein NT-Pro-B Natriuret Pep Total Protein Albumin Arterial Blood Glucose Urine WBC (Auto) 12/12/19 12/12/19 12/12/19 09:38 12:18 17:44 WBC RBC Hgb Hct MCHC RDW MCV MCH Lymph % (Auto) [place] % (Auto) [place] # Eos # Lymph # (Auto) [place] # (Auto) Eos # (Auto) Seg Neutrophils % Seg Neuts % (Manual) Baso # (Auto) Lymphocytes % (Manual) Monocytes % (Manual) Eosinophils % (Manual) Basophils % (Manual) Seg Neutrophils # Seg Neutrophils # Man Lymphocytes # (Manual) Monocytes # (Manual) Eosinophils # (Manual) Nucleated RBC % Basophils # (Manual) APTT Heparin Anti-Xa Level ABG pH POC ABG pO2 ABG pO2 ABG HCO3 ABG O2 Saturation ABG Base Excess POC ABG pCO2 ABG Hemoglobin ABG Oxyhemoglobin ABG Glucose Oxyhemoglobin Sodium Potassium Chloride Carbon Dioxide BUN Creatinine Glucose POC Glucose 115 H 146 H 146 H Lactic Acid Calcium Phosphorus Magnesium AST ALT Lactate Dehydrogenase CK-MB (CK-2) C-Reactive Protein NT-Pro-B Natriuret Pep Total Protein Albumin Arterial Blood Glucose Urine WBC (Auto) 12/12/19 12/13/19 12/13/19 23:33 05:32 05:32 WBC 13.1 H RBC 3.27 L Hgb 9.5 L Hct 29.3 L MCHC RDW 15.6 H MCV MCH Lymph % (Auto) [place] % (Auto) [place] # Eos # Lymph # (Auto) [place] # (Auto) Eos # (Auto) Seg Neutrophils % Seg Neuts % (Manual) 74.0 H Baso # (Auto) Lymphocytes % (Manual) 8.0 L Monocytes % (Manual) 9.0 H Eosinophils % (Manual) 5.0 H Basophils % (Manual) Seg Neutrophils # Seg Neutrophils # Man 9.7 H Lymphocytes # (Manual) 1.0 L Monocytes # (Manual) 1.2 H Eosinophils # (Manual) 0.7 H Nucleated RBC % Basophils # (Manual) APTT Heparin Anti-Xa Level 0.20 L ABG pH POC ABG pO2 ABG pO2 ABG HCO3 ABG O2 Saturation ABG Base Excess POC ABG pCO2 ABG Hemoglobin ABG Oxyhemoglobin ABG Glucose Oxyhemoglobin Sodium Potassium Chloride Carbon Dioxide BUN Creatinine Glucose POC Glucose 126 H Lactic Acid Calcium Phosphorus Magnesium AST ALT Lactate Dehydrogenase CK-MB (CK-2) C-Reactive Protein NT-Pro-B Natriuret Pep Total Protein Albumin Arterial Blood Glucose Urine WBC (Auto) 12/13/19 12/13/19 12/13/19 05:32 05:46 11:57 WBC RBC Hgb Hct MCHC RDW MCV MCH Lymph % (Auto) [place] % (Auto) [place] # Eos # Lymph # (Auto) [place] # (Auto) Eos # (Auto) Seg Neutrophils % Seg Neuts % (Manual) Baso # (Auto) Lymphocytes % (Manual) Monocytes % (Manual) Eosinophils % (Manual) Basophils % (Manual) Seg Neutrophils # Seg Neutrophils # Man Lymphocytes # (Manual) Monocytes # (Manual) Eosinophils # (Manual) Nucleated RBC % Basophils # (Manual) APTT Heparin Anti-Xa Level ABG pH POC ABG pO2 ABG pO2 ABG HCO3 ABG O2 Saturation ABG Base Excess POC ABG pCO2 ABG Hemoglobin ABG Oxyhemoglobin ABG Glucose Oxyhemoglobin Sodium Potassium Chloride Carbon Dioxide 31 H BUN Creatinine 0.6 L Glucose 114 H POC Glucose 118 H 133 H Lactic Acid Calcium Phosphorus Magnesium AST ALT Lactate Dehydrogenase CK-MB (CK-2) C-Reactive Protein NT-Pro-B Natriuret Pep Total Protein Albumin Arterial Blood Glucose Urine WBC (Auto) 12/13/19 12/13/19 12/14/19 17:44 23:46 05:32 WBC RBC Hgb Hct MCHC RDW MCV MCH Lymph % (Auto) [place] % (Auto) [place] # Eos # Lymph # (Auto) [place] # (Auto) Eos # (Auto) Seg Neutrophils % Seg Neuts % (Manual) Baso # (Auto) Lymphocytes % (Manual) Monocytes % (Manual) Eosinophils % (Manual) Basophils % (Manual) Seg Neutrophils # Seg Neutrophils # Man Lymphocytes # (Manual) Monocytes # (Manual) Eosinophils # (Manual) Nucleated RBC % Basophils # (Manual) APTT Heparin Anti-Xa Level ABG pH POC ABG pO2 ABG pO2 ABG HCO3 ABG O2 Saturation ABG Base Excess POC ABG pCO2 ABG Hemoglobin ABG Oxyhemoglobin ABG Glucose Oxyhemoglobin Sodium Potassium Chloride Carbon Dioxide BUN Creatinine Glucose POC Glucose 161 H 126 H 139 H Lactic Acid Calcium Phosphorus Magnesium AST ALT Lactate Dehydrogenase CK-MB (CK-2) C-Reactive Protein NT-Pro-B Natriuret Pep Total Protein Albumin Arterial Blood Glucose Urine WBC (Auto) 12/14/19 12/14/19 12/14/19 06:03 06:03 09:37 WBC RBC Hgb 9.6 L Hct 30.4 L MCHC RDW MCV MCH Lymph % (Auto) Kend[place] % (Auto) Kendall # Eos # Lymph # (Auto) [place] # (Auto) Eos # (Auto) Seg Neutrophils % Seg Neuts % (Manual) Baso # (Auto) Lymphocytes % (Manual) Monocytes % (Manual) Eosinophils % (Manual) Basophils % (Manual) Seg Neutrophils # Seg Neutrophils # Man Lymphocytes # (Manual) Monocytes # (Manual) Eosinophils # (Manual) Nucleated RBC % Basophils # (Manual) APTT Heparin Anti-Xa Level 0.24 L ABG pH POC ABG pO2 ABG pO2 ABG HCO3 ABG O2 Saturation ABG Base Excess POC ABG pCO2 ABG Hemoglobin ABG Oxyhemoglobin ABG Glucose Oxyhemoglobin Sodium Potassium Chloride Carbon Dioxide BUN Creatinine 0.6 L Glucose 162 H POC Glucose Lactic Acid Calcium Phosphorus Magnesium AST 71 H ALT 118 H Lactate Dehydrogenase CK-MB (CK-2) C-Reactive Protein NT-Pro-B Natriuret Pep Total Protein 6.2 L Albumin 2.3 L Arterial Blood Glucose Urine WBC (Auto) 12/14/19 12/14/19 12/15/19 12:06 18:18 00:19 WBC RBC Hgb Hct MCHC RDW MCV MCH Lymph % (Auto) [place] % (Auto) [place] # Eos # Lymph # (Auto) [place] # (Auto) Eos # (Auto) Seg Neutrophils % Seg Neuts % (Manual) Baso # (Auto) Lymphocytes % (Manual) Monocytes % (Manual) Eosinophils % (Manual) Basophils % (Manual) Seg Neutrophils # Seg Neutrophils # Man Lymphocytes # (Manual) Monocytes # (Manual) Eosinophils # (Manual) Nucleated RBC % Basophils # (Manual) APTT Heparin Anti-Xa Level ABG pH POC ABG pO2 ABG pO2 ABG HCO3 ABG O2 Saturation ABG Base Excess POC ABG pCO2 ABG Hemoglobin ABG Oxyhemoglobin ABG Glucose Oxyhemoglobin Sodium Potassium Chloride Carbon Dioxide BUN Creatinine Glucose POC Glucose 147 H 166 H 123 H Lactic Acid Calcium Phosphorus Magnesium AST ALT Lactate Dehydrogenase CK-MB (CK-2) C-Reactive Protein NT-Pro-B Natriuret Pep Total Protein Albumin Arterial Blood Glucose Urine WBC (Auto) 12/15/19 12/15/19 12/15/19 05:28 05:29 05:29 WBC 14.9 H RBC 3.19 L Hgb 9.1 L Hct 28.7 L MCHC RDW 16.0 H MCV MCH Lymph % (Auto) [place] % (Auto) [place] # Eos # Lymph # (Auto) [place] # (Auto) Eos # (Auto) Seg Neutrophils % Seg Neuts % (Manual) Baso # (Auto) Lymphocytes % (Manual) Monocytes % (Manual) Eosinophils % (Manual) Basophils % (Manual) Seg Neutrophils # Seg Neutrophils # Man Lymphocytes # (Manual) Monocytes # (Manual) Eosinophils # (Manual) Nucleated RBC % Basophils # (Manual) APTT Heparin Anti-Xa Level 0.19 L ABG pH POC ABG pO2 ABG pO2 ABG HCO3 ABG O2 Saturation ABG Base Excess POC ABG pCO2 ABG Hemoglobin ABG Oxyhemoglobin ABG Glucose Oxyhemoglobin Sodium Potassium Chloride Carbon Dioxide BUN Creatinine 0.6 L Glucose 110 H POC Glucose Lactic Acid Calcium Phosphorus Magnesium AST ALT Lactate Dehydrogenase CK-MB (CK-2) C-Reactive Protein NT-Pro-B Natriuret Pep Total Protein Albumin Arterial Blood Glucose Urine WBC (Auto) 12/15/19 12/15/19 12/15/19 05:53 11:50 17:26 WBC RBC Hgb Hct MCHC RDW MCV MCH Lymph % (Auto) [place] % (Auto) [place] # Eos # Lymph # (Auto) [place] # (Auto) Eos # (Auto) Seg Neutrophils % Seg Neuts % (Manual) Baso # (Auto) Lymphocytes % (Manual) Monocytes % (Manual) Eosinophils % (Manual) Basophils % (Manual) Seg Neutrophils # Seg Neutrophils # Man Lymphocytes # (Manual) Monocytes # (Manual) Eosinophils # (Manual) Nucleated RBC % Basophils # (Manual) APTT Heparin Anti-Xa Level ABG pH POC ABG pO2 ABG pO2 ABG HCO3 ABG O2 Saturation ABG Base Excess POC ABG pCO2 ABG Hemoglobin ABG Oxyhemoglobin ABG Glucose Oxyhemoglobin Sodium Potassium Chloride Carbon Dioxide BUN Creatinine Glucose POC Glucose 119 H 132 H 128 H Lactic Acid Calcium Phosphorus Magnesium AST ALT Lactate Dehydrogenase CK-MB (CK-2) C-Reactive Protein NT-Pro-B Natriuret Pep Total Protein Albumin Arterial Blood Glucose Urine WBC (Auto) 12/15/19 12/16/1920 23:11 05:30 05:46 WBC RBC Hgb 8.8 L Hct 27.9 L MCHC RDW MCV MCH Lymph % (Auto) [place] % (Auto) [place] # Eos # Lymph # (Auto) [place] # (Auto) Eos # (Auto) Seg Neutrophils % Seg Neuts % (Manual) Baso # (Auto) Lymphocytes % (Manual) Monocytes % (Manual) Eosinophils % (Manual) Basophils % (Manual) Seg Neutrophils # Seg Neutrophils # Man Lymphocytes # (Manual) Monocytes # (Manual) Eosinophils # (Manual) Nucleated RBC % Basophils # (Manual) APTT Heparin Anti-Xa Level ABG pH POC ABG pO2 ABG pO2 ABG HCO3 ABG O2 Saturation ABG Base Excess POC ABG pCO2 ABG Hemoglobin ABG Oxyhemoglobin ABG Glucose Oxyhemoglobin Sodium Potassium Chloride Carbon Dioxide BUN Creatinine Glucose POC Glucose 150 H 134 H Lactic Acid Calcium Phosphorus Magnesium AST ALT Lactate Dehydrogenase CK-MB (CK-2) C-Reactive Protein NT-Pro-B Natriuret Pep Total Protein Albumin Arterial Blood Glucose Urine WBC (Auto) 12/16/19 12/16/19 12/16/19 05:46 05:46 11:44 WBC RBC Hgb Hct MCHC RDW MCV MCH Lymph % (Auto) [place] % (Auto) [place] # Eos # Lymph # (Auto) [place] # (Auto) Eos # (Auto) Seg Neutrophils % Seg Neuts % (Manual) Baso # (Auto) Lymphocytes % (Manual) Monocytes % (Manual) Eosinophils % (Manual) Basophils % (Manual) Seg Neutrophils # Seg Neutrophils # Man Lymphocytes # (Manual) Monocytes # (Manual) Eosinophils # (Manual) Nucleated RBC % Basophils # (Manual) APTT Heparin Anti-Xa Level 0.20 L ABG pH POC ABG pO2 ABG pO2 ABG HCO3 ABG O2 Saturation ABG Base Excess POC ABG pCO2 ABG Hemoglobin ABG Oxyhemoglobin ABG Glucose Oxyhemoglobin Sodium Potassium Chloride Carbon Dioxide 31 H BUN Creatinine 0.5 L Glucose 147 H POC Glucose 164 H Lactic Acid Calcium Phosphorus Magnesium AST ALT Lactate Dehydrogenase CK-MB (CK-2) C-Reactive Protein NT-Pro-B Natriuret Pep Total Protein Albumin Arterial Blood Glucose Urine WBC (Auto) 12/16/19 12/16/19 12/17/19 17:17 23:49 05:30 WBC 13.9 H RBC 3.27 L Hgb 9.4 L Hct 29.2 L MCHC RDW 16.0 H MCV MCH Lymph % (Auto) [place] % (Auto) 8.8 H [place] # Eos # Lymph # (Auto) [place] # (Auto) 1.2 H Eos # (Auto) 0.5 H Seg Neutrophils % 70.5 H Seg Neuts % (Manual) Baso # (Auto) 0.2 H Lymphocytes % (Manual) Monocytes % (Manual) Eosinophils % (Manual) Basophils % (Manual) Seg Neutrophils # 9.8 H Seg Neutrophils # Man Lymphocytes # (Manual) Monocytes # (Manual) Eosinophils # (Manual) Nucleated RBC % Basophils # (Manual) APTT Heparin Anti-Xa Level ABG pH POC ABG pO2 ABG pO2 ABG HCO3 ABG O2 Saturation ABG Base Excess POC ABG pCO2 ABG Hemoglobin ABG Oxyhemoglobin ABG Glucose Oxyhemoglobin Sodium Potassium Chloride Carbon Dioxide BUN Creatinine Glucose POC Glucose 162 H 144 H Lactic Acid Calcium Phosphorus Magnesium AST ALT Lactate Dehydrogenase CK-MB (CK-2) C-Reactive Protein NT-Pro-B Natriuret Pep Total Protein Albumin Arterial Blood Glucose Urine WBC (Auto) 12/17/19 12/17/19 12/17/19 05:30 06:06 11:50 WBC RBC Hgb Hct MCHC RDW MCV MCH Lymph % (Auto) [place] % (Auto) [place] # Eos # Lymph # (Auto) [place] # (Auto) Eos # (Auto) Seg Neutrophils % Seg Neuts % (Manual) Baso # (Auto) Lymphocytes % (Manual) Monocytes % (Manual) Eosinophils % (Manual) Basophils % (Manual) Seg Neutrophils # Seg Neutrophils # Man Lymphocytes # (Manual) Monocytes # (Manual) Eosinophils # (Manual) Nucleated RBC % Basophils # (Manual) APTT Heparin Anti-Xa Level ABG pH POC ABG pO2 ABG pO2 ABG HCO3 ABG O2 Saturation ABG Base Excess POC ABG pCO2 ABG Hemoglobin ABG Oxyhemoglobin ABG Glucose Oxyhemoglobin Sodium Potassium Chloride 97.4 L Carbon Dioxide 32 H BUN Creatinine 0.5 L Glucose 135 H POC Glucose 151 H 140 H Lactic Acid Calcium Phosphorus Magnesium AST ALT Lactate Dehydrogenase CK-MB (CK-2) C-Reactive Protein NT-Pro-B Natriuret Pep Total Protein Albumin Arterial Blood Glucose Urine WBC (Auto) 12/17/19 12/17/19 12/18/19 17:50 23:46 05:17 WBC RBC Hgb 8.8 L Hct 28.0 L MCHC RDW MCV MCH Lymph % (Auto) [place] % (Auto) [place] # Eos # Lymph # (Auto) [place] # (Auto) Eos # (Auto) Seg Neutrophils % Seg Neuts % (Manual) Baso # (Auto) Lymphocytes % (Manual) Monocytes % (Manual) Eosinophils % (Manual) Basophils % (Manual) Seg Neutrophils # Seg Neutrophils # Man Lymphocytes # (Manual) Monocytes # (Manual) Eosinophils # (Manual) Nucleated RBC % Basophils # (Manual) APTT Heparin Anti-Xa Level ABG pH POC ABG pO2 ABG pO2 ABG HCO3 ABG O2 Saturation ABG Base Excess POC ABG pCO2 ABG Hemoglobin ABG Oxyhemoglobin ABG Glucose Oxyhemoglobin Sodium Potassium Chloride Carbon Dioxide BUN Creatinine Glucose POC Glucose 158 H 150 H Lactic Acid Calcium Phosphorus Magnesium AST ALT Lactate Dehydrogenase CK-MB (CK-2) C-Reactive Protein NT-Pro-B Natriuret Pep Total Protein Albumin Arterial Blood Glucose Urine WBC (Auto) 12/18/19 12/18/19 12/18/19 05:17 05:49 11:12 WBC RBC Hgb Hct MCHC RDW MCV MCH Lymph % (Auto) [place] % (Auto) [place] # Eos # Lymph # (Auto) [place] # (Auto) Eos # (Auto) Seg Neutrophils % Seg Neuts % (Manual) Baso # (Auto) Lymphocytes % (Manual) Monocytes % (Manual) Eosinophils % (Manual) Basophils % (Manual) Seg Neutrophils # Seg Neutrophils # Man Lymphocytes # (Manual) Monocytes # (Manual) Eosinophils # (Manual) Nucleated RBC % Basophils # (Manual) APTT Heparin Anti-Xa Level 0.16 L ABG pH POC ABG pO2 ABG pO2 ABG HCO3 ABG O2 Saturation ABG Base Excess POC ABG pCO2 ABG Hemoglobin ABG Oxyhemoglobin ABG Glucose Oxyhemoglobin Sodium Potassium Chloride Carbon Dioxide BUN Creatinine Glucose POC Glucose 127 H 191 H Lactic Acid Calcium Phosphorus Magnesium AST ALT Lactate Dehydrogenase CK-MB (CK-2) C-Reactive Protein NT-Pro-B Natriuret Pep Total Protein Albumin Arterial Blood Glucose Urine WBC (Auto) 12/18/19 12/18/19 12/19/19 17:03 20:16 00:08 WBC RBC Hgb Hct MCHC RDW MCV MCH Lymph % (Auto) [place] % (Auto) [place] # Eos # Lymph # (Auto) [place] # (Auto) Eos # (Auto) Seg Neutrophils % Seg Neuts % (Manual) Baso # (Auto) Lymphocytes % (Manual) Monocytes % (Manual) Eosinophils % (Manual) Basophils % (Manual) Seg Neutrophils # Seg Neutrophils # Man Lymphocytes # (Manual) Monocytes # (Manual) Eosinophils # (Manual) Nucleated RBC % Basophils # (Manual) APTT Heparin Anti-Xa Level ABG pH POC ABG pO2 ABG pO2 ABG HCO3 ABG O2 Saturation ABG Base Excess POC ABG pCO2 ABG Hemoglobin ABG Oxyhemoglobin ABG Glucose Oxyhemoglobin Sodium Potassium Chloride Carbon Dioxide BUN Creatinine Glucose POC Glucose 133 H 128 H 129 H Lactic Acid Calcium Phosphorus Magnesium AST ALT Lactate Dehydrogenase CK-MB (CK-2) C-Reactive Protein NT-Pro-B Natriuret Pep Total Protein Albumin Arterial Blood Glucose Urine WBC (Auto) 12/19/19 12/19/19 12/19/19 04:45 04:45 05:35 WBC RBC Hgb Hct MCHC RDW MCV MCH Lymph % (Auto) [place] % (Auto) [place] # Eos # Lymph # (Auto) [place] # (Auto) Eos # (Auto) Seg Neutrophils % Seg Neuts % (Manual) Baso # (Auto) Lymphocytes % (Manual) Monocytes % (Manual) Eosinophils % (Manual) Basophils % (Manual) Seg Neutrophils # Seg Neutrophils # Man Lymphocytes # (Manual) Monocytes # (Manual) Eosinophils # (Manual) Nucleated RBC % Basophils # (Manual) APTT Heparin Anti-Xa Level 0.17 L ABG pH POC ABG pO2 ABG pO2 ABG HCO3 ABG O2 Saturation ABG Base Excess POC ABG pCO2 ABG Hemoglobin ABG Oxyhemoglobin ABG Glucose Oxyhemoglobin Sodium Potassium Chloride Carbon Dioxide BUN Creatinine Glucose POC Glucose 120 H Lactic Acid Calcium Phosphorus Magnesium AST ALT Lactate Dehydrogenase 228 H CK-MB (CK-2) C-Reactive Protein NT-Pro-B Natriuret Pep Total Protein Albumin Arterial Blood Glucose Urine WBC (Auto) 12/19/19 12/19/19 12/19/19 09:20 11:32 11:32 WBC 14.6 H RBC 3.08 L Hgb 9.0 L Hct 26.8 L MCHC RDW 15.9 H MCV MCH Lymph % (Auto) [place] % (Auto) [place] # Eos # Lymph # (Auto) [place] # (Auto) Eos # (Auto) Seg Neutrophils % Seg Neuts % (Manual) 82.0 H Baso # (Auto) Lymphocytes % (Manual) 10.0 L Monocytes % (Manual) Eosinophils % (Manual) Basophils % (Manual) Seg Neutrophils # Seg Neutrophils # Man 12.0 H Lymphocytes # (Manual) Monocytes # (Manual) 0.9 H Eosinophils # (Manual) Nucleated RBC % 1.0 H Basophils # (Manual) APTT Heparin Anti-Xa Level ABG pH 7.451 H POC ABG pO2 ABG pO2 62.6 L ABG HCO3 33.2 H ABG O2 Saturation 93.8 L ABG Base Excess 8.3 H POC ABG pCO2 ABG Hemoglobin 8.3 L ABG Oxyhemoglobin ABG Glucose Oxyhemoglobin 91.9 L Sodium Potassium Chloride 95.0 L Carbon Dioxide 33 H BUN 22 H Creatinine 0.6 L Glucose 150 H POC Glucose Lactic Acid Calcium Phosphorus Magnesium AST ALT Lactate Dehydrogenase CK-MB (CK-2) C-Reactive Protein NT-Pro-B Natriuret Pep Total Protein 6.2 L Albumin 2.4 L Arterial Blood Glucose Urine WBC (Auto) 12/19/19 12/19/19 12/20/19 11:56 18:17 00:09 WBC RBC Hgb Hct MCHC RDW MCV MCH Lymph % (Auto) [place] % (Auto) [place] # Eos # Lymph # (Auto) [place] # (Auto) Eos # (Auto) Seg Neutrophils % Seg Neuts % (Manual) Baso # (Auto) Lymphocytes % (Manual) Monocytes % (Manual) Eosinophils % (Manual) Basophils % (Manual) Seg Neutrophils # Seg Neutrophils # Man Lymphocytes # (Manual) Monocytes # (Manual) Eosinophils # (Manual) Nucleated RBC % Basophils # (Manual) APTT Heparin Anti-Xa Level ABG pH POC ABG pO2 ABG pO2 ABG HCO3 ABG O2 Saturation ABG Base Excess POC ABG pCO2 ABG Hemoglobin ABG Oxyhemoglobin ABG Glucose Oxyhemoglobin Sodium Potassium Chloride Carbon Dioxide BUN Creatinine Glucose POC Glucose 156 H 156 H 155 H Lactic Acid Calcium Phosphorus Magnesium AST ALT Lactate Dehydrogenase CK-MB (CK-2) C-Reactive Protein NT-Pro-B Natriuret Pep Total Protein Albumin Arterial Blood Glucose Urine WBC (Auto) 09/27/20 09/27/20 09/27/20 05:26 06:02 18:17 WBC RBC Hgb Hct MCHC RDW MCV MCH Lymph % (Auto) [place] % (Auto) [place] # Eos # Lymph # (Auto) [place] # (Auto) Eos # (Auto) Seg Neutrophils % Seg Neuts % (Manual) Baso # (Auto) Lymphocytes % (Manual) Monocytes % (Manual) Eosinophils % (Manual) Basophils % (Manual) Seg Neutrophils # Seg Neutrophils # Man Lymphocytes # (Manual) Monocytes # (Manual) Eosinophils # (Manual) Nucleated RBC % Basophils # (Manual) APTT Heparin Anti-Xa Level 0.19 L ABG pH POC ABG pO2 ABG pO2 ABG HCO3 ABG O2 Saturation ABG Base Excess POC ABG pCO2 ABG Hemoglobin ABG Oxyhemoglobin ABG Glucose Oxyhemoglobin Sodium Potassium Chloride Carbon Dioxide BUN Creatinine Glucose POC Glucose 137 H 128 H Lactic Acid Calcium Phosphorus Magnesium AST ALT Lactate Dehydrogenase CK-MB (CK-2) C-Reactive Protein NT-Pro-B Natriuret Pep Total Protein Albumin Arterial Blood Glucose Urine WBC (Auto) 12/20/19 12/21/19 12/21/19 23:34 05:31 05:31 WBC 12.7 H RBC 3.09 L Hgb 8.9 L Hct 27.4 L MCHC RDW 15.8 H MCV MCH Lymph % (Auto) 12.1 L [place] % (Auto) 7.8 H [place] # Eos # Lymph # (Auto) [place] # (Auto) 1.0 H Eos # (Auto) Seg Neutrophils % 77.1 H Seg Neuts % (Manual) Baso # (Auto) Lymphocytes % (Manual) Monocytes % (Manual) Eosinophils % (Manual) Basophils % (Manual) Seg Neutrophils # 9.8 H Seg Neutrophils # Man Lymphocytes # (Manual) Monocytes # (Manual) Eosinophils # (Manual) Nucleated RBC % Basophils # (Manual) APTT Heparin Anti-Xa Level ABG pH POC ABG pO2 ABG pO2 ABG HCO3 ABG O2 Saturation ABG Base Excess POC ABG pCO2 ABG Hemoglobin ABG Oxyhemoglobin ABG Glucose Oxyhemoglobin Sodium Potassium Chloride 96.9 L Carbon Dioxide 37 H BUN 27 H Creatinine 0.7 L Glucose 140 H POC Glucose 145 H Lactic Acid Calcium Phosphorus Magnesium AST ALT Lactate Dehydrogenase CK-MB (CK-2) C-Reactive Protein NT-Pro-B Natriuret Pep Total Protein Albumin Arterial Blood Glucose Urine WBC (Auto) 12/21/19 12/21/19 12/21/19 05:38 10:13 11:51 WBC RBC Hgb Hct MCHC RDW MCV MCH Lymph % (Auto) [place] % (Auto) [place] # Eos # Lymph # (Auto) [place] # (Auto) Eos # (Auto) Seg Neutrophils % Seg Neuts % (Manual) Baso # (Auto) Lymphocytes % (Manual) Monocytes % (Manual) Eosinophils % (Manual) Basophils % (Manual) Seg Neutrophils # Seg Neutrophils # Man Lymphocytes # (Manual) Monocytes # (Manual) Eosinophils # (Manual) Nucleated RBC % Basophils # (Manual) APTT 23.9 L Heparin Anti-Xa Level < 0.10 L ABG pH POC ABG pO2 ABG pO2 ABG HCO3 ABG O2 Saturation ABG Base Excess POC ABG pCO2 ABG Hemoglobin ABG Oxyhemoglobin ABG Glucose Oxyhemoglobin Sodium Potassium Chloride Carbon Dioxide BUN Creatinine Glucose POC Glucose 151 H 145 H Lactic Acid Calcium Phosphorus Magnesium AST ALT Lactate Dehydrogenase CK-MB (CK-2) C-Reactive Protein NT-Pro-B Natriuret Pep Total Protein Albumin Arterial Blood Glucose Urine WBC (Auto) 12/21/19 12/22/19 12/22/19 17:16 00:01 01:33 WBC RBC Hgb Hct MCHC RDW MCV MCH Lymph % (Auto) [place] % (Auto) [place] # Eos # Lymph # (Auto) [place] # (Auto) Eos # (Auto) Seg Neutrophils % Seg Neuts % (Manual) Baso # (Auto) Lymphocytes % (Manual) Monocytes % (Manual) Eosinophils % (Manual) Basophils % (Manual) Seg Neutrophils # Seg Neutrophils # Man Lymphocytes # (Manual) Monocytes # (Manual) Eosinophils # (Manual) Nucleated RBC % Basophils # (Manual) APTT Heparin Anti-Xa Level 0.10 L ABG pH POC ABG pO2 ABG pO2 ABG HCO3 ABG O2 Saturation ABG Base Excess POC ABG pCO2 ABG Hemoglobin ABG Oxyhemoglobin ABG Glucose Oxyhemoglobin Sodium Potassium Chloride Carbon Dioxide BUN Creatinine Glucose POC Glucose 167 H 179 H Lactic Acid Calcium Phosphorus Magnesium AST ALT Lactate Dehydrogenase CK-MB (CK-2) C-Reactive Protein NT-Pro-B Natriuret Pep Total Protein Albumin Arterial Blood Glucose Urine WBC (Auto) 12/22/19 12/22/19 12/22/19 03:22 05:10 05:10 WBC 13.8 H RBC 3.20 L Hgb 8.9 L Hct 28.1 L MCHC RDW 15.9 H MCV MCH Lymph % (Auto) [place] % (Auto) [place] # Eos # Lymph # (Auto) [place] # (Auto) Eos # (Auto) Seg Neutrophils % Seg Neuts % (Manual) Baso # (Auto) Lymphocytes % (Manual) Monocytes % (Manual) Eosinophils % (Manual) Basophils % (Manual) Seg Neutrophils # Seg Neutrophils # Man Lymphocytes # (Manual) Monocytes # (Manual) Eosinophils # (Manual) Nucleated RBC % Basophils # (Manual) APTT Heparin Anti-Xa Level ABG pH POC ABG pO2 52.3 L ABG pO2 ABG HCO3 ABG O2 Saturation ABG Base Excess POC ABG pCO2 52.9 H ABG Hemoglobin 10.7 L ABG Oxyhemoglobin 84 L ABG Glucose Oxyhemoglobin Sodium Potassium Chloride 96.6 L Carbon Dioxide BUN 25 H Creatinine 0.7 L Glucose 129 H POC Glucose Lactic Acid Calcium Phosphorus Magnesium AST ALT Lactate Dehydrogenase CK-MB (CK-2) C-Reactive Protein NT-Pro-B Natriuret Pep Total Protein Albumin Arterial Blood Glucose Urine WBC (Auto) 12/22/19 12/22/19 12/22/19 05:18 12:32 12:43 WBC RBC Hgb Hct MCHC RDW MCV MCH Lymph % (Auto) [place] % (Auto) [place] # Eos # Lymph # (Auto) [place] # (Auto) Eos # (Auto) Seg Neutrophils % Seg Neuts % (Manual) Baso # (Auto) Lymphocytes % (Manual) Monocytes % (Manual) Eosinophils % (Manual) Basophils % (Manual) Seg Neutrophils # Seg Neutrophils # Man Lymphocytes # (Manual) Monocytes # (Manual) Eosinophils # (Manual) Nucleated RBC % Basophils # (Manual) APTT Heparin Anti-Xa Level 0.18 L ABG pH POC ABG pO2 ABG pO2 ABG HCO3 ABG O2 Saturation ABG Base Excess POC ABG pCO2 ABG Hemoglobin ABG Oxyhemoglobin ABG Glucose Oxyhemoglobin Sodium Potassium Chloride Carbon Dioxide BUN Creatinine Glucose POC Glucose 131 H 208 H Lactic Acid Calcium Phosphorus Magnesium AST ALT Lactate Dehydrogenase CK-MB (CK-2) C-Reactive Protein NT-Pro-B Natriuret Pep Total Protein Albumin Arterial Blood Glucose Urine WBC (Auto) 12/22/19 12/22/19 12/23/19 17:44 23:20 03:51 WBC 15.2 H RBC 3.43 L Hgb 9.6 L Hct 30.3 L MCHC RDW 15.9 H MCV MCH Lymph % (Auto) [place] % (Auto) [place] # Eos # Lymph # (Auto) [place] # (Auto) Eos # (Auto) Seg Neutrophils % Seg Neuts % (Manual) Baso # (Auto) Lymphocytes % (Manual) Monocytes % (Manual) Eosinophils % (Manual) Basophils % (Manual) Seg Neutrophils # Seg Neutrophils # Man Lymphocytes # (Manual) Monocytes # (Manual) Eosinophils # (Manual) Nucleated RBC % Basophils # (Manual) APTT Heparin Anti-Xa Level ABG pH POC ABG pO2 ABG pO2 ABG HCO3 ABG O2 Saturation ABG Base Excess POC ABG pCO2 ABG Hemoglobin ABG Oxyhemoglobin ABG Glucose Oxyhemoglobin Sodium Potassium Chloride Carbon Dioxide BUN Creatinine Glucose POC Glucose 209 H 119 H Lactic Acid Calcium Phosphorus Magnesium AST ALT Lactate Dehydrogenase CK-MB (CK-2) C-Reactive Protein NT-Pro-B Natriuret Pep Total Protein Albumin Arterial Blood Glucose Urine WBC (Auto) 12/23/19 12/23/19 12/23/19 03:51 05:31 12:09 WBC RBC Hgb Hct MCHC RDW MCV MCH Lymph % (Auto) [place] % (Auto) [place] # Eos # Lymph # (Auto) [place] # (Auto) Eos # (Auto) Seg Neutrophils % Seg Neuts % (Manual) Baso # (Auto) Lymphocytes % (Manual) Monocytes % (Manual) Eosinophils % (Manual) Basophils % (Manual) Seg Neutrophils # Seg Neutrophils # Man Lymphocytes # (Manual) Monocytes # (Manual) Eosinophils # (Manual) Nucleated RBC % Basophils # (Manual) APTT Heparin Anti-Xa Level ABG pH POC ABG pO2 ABG pO2 ABG HCO3 ABG O2 Saturation ABG Base Excess POC ABG pCO2 ABG Hemoglobin ABG Oxyhemoglobin ABG Glucose Oxyhemoglobin Sodium Potassium Chloride 97.2 L Carbon Dioxide 31 H BUN 23 H Creatinine 0.6 L Glucose 153 H POC Glucose 149 H 144 H Lactic Acid Calcium Phosphorus Magnesium AST ALT Lactate Dehydrogenase CK-MB (CK-2) C-Reactive Protein NT-Pro-B Natriuret Pep Total Protein Albumin Arterial Blood Glucose Urine WBC (Auto) 12/23/19 12/23/19 12/23/19 15:30 17:49 23:31 WBC RBC Hgb Hct MCHC RDW MCV MCH Lymph % (Auto) [place] % (Auto) [place] # Eos # Lymph # (Auto) [place] # (Auto) Eos # (Auto) Seg Neutrophils % Seg Neuts % (Manual) Baso # (Auto) Lymphocytes % (Manual) Monocytes % (Manual) Eosinophils % (Manual) Basophils % (Manual) Seg Neutrophils # Seg Neutrophils # Man Lymphocytes # (Manual) Monocytes # (Manual) Eosinophils # (Manual) Nucleated RBC % Basophils # (Manual) APTT Heparin Anti-Xa Level 0.21 L ABG pH POC ABG pO2 ABG pO2 ABG HCO3 ABG O2 Saturation ABG Base Excess POC ABG pCO2 ABG Hemoglobin ABG Oxyhemoglobin ABG Glucose Oxyhemoglobin Sodium Potassium Chloride Carbon Dioxide BUN Creatinine Glucose POC Glucose 192 H 151 H Lactic Acid Calcium Phosphorus Magnesium AST ALT Lactate Dehydrogenase CK-MB (CK-2) C-Reactive Protein NT-Pro-B Natriuret Pep Total Protein Albumin Arterial Blood Glucose Urine WBC (Auto) 12/24/19 12/24/19 12/24/19 05:34 12:13 16:50 WBC RBC Hgb Hct MCHC RDW MCV MCH Lymph % (Auto) [place] % (Auto) [place] # Eos # Lymph # (Auto) [place] # (Auto) Eos # (Auto) Seg Neutrophils % Seg Neuts % (Manual) Baso # (Auto) Lymphocytes % (Manual) Monocytes % (Manual) Eosinophils % (Manual) Basophils % (Manual) Seg Neutrophils # Seg Neutrophils # Man Lymphocytes # (Manual) Monocytes # (Manual) Eosinophils # (Manual) Nucleated RBC % Basophils # (Manual) APTT Heparin Anti-Xa Level 0.16 L ABG pH POC ABG pO2 ABG pO2 ABG HCO3 ABG O2 Saturation ABG Base Excess POC ABG pCO2 ABG Hemoglobin ABG Oxyhemoglobin ABG Glucose Oxyhemoglobin Sodium Potassium Chloride Carbon Dioxide BUN Creatinine Glucose POC Glucose 145 H 124 H Lactic Acid Calcium Phosphorus Magnesium AST ALT Lactate Dehydrogenase CK-MB (CK-2) C-Reactive Protein NT-Pro-B Natriuret Pep Total Protein Albumin Arterial Blood Glucose Urine WBC (Auto) 12/24/19 12/25/19 12/25/19 17:53 00:14 04:18 WBC 12.9 H RBC 3.30 L Hgb 9.1 L Hct 28.8 L MCHC RDW 16.4 H MCV MCH Lymph % (Auto) [place] % (Auto) 7.8 H [place] # Eos # Lymph # (Auto) [place] # (Auto) 1.0 H Eos # (Auto) Seg Neutrophils % 75.5 H Seg Neuts % (Manual) Baso # (Auto) Lymphocytes % (Manual) Monocytes % (Manual) Eosinophils % (Manual) Basophils % (Manual) Seg Neutrophils # 9.7 H Seg Neutrophils # Man Lymphocytes # (Manual) Monocytes # (Manual) Eosinophils # (Manual) Nucleated RBC % Basophils # (Manual) APTT Heparin Anti-Xa Level ABG pH POC ABG pO2 ABG pO2 ABG HCO3 ABG O2 Saturation ABG Base Excess POC ABG pCO2 ABG Hemoglobin ABG Oxyhemoglobin ABG Glucose Oxyhemoglobin Sodium Potassium Chloride Carbon Dioxide BUN Creatinine Glucose POC Glucose 164 H 148 H Lactic Acid Calcium Phosphorus Magnesium AST ALT Lactate Dehydrogenase CK-MB (CK-2) C-Reactive Protein NT-Pro-B Natriuret Pep Total Protein Albumin Arterial Blood Glucose Urine WBC (Auto) 12/25/19 12/25/19 12/25/19 04:18 05:38 11:44 WBC RBC Hgb Hct MCHC RDW MCV MCH Lymph % (Auto) [place] % (Auto) [place]all # Eos # Lymph # (Auto) [place] # (Auto) Eos # (Auto) Seg Neutrophils % Seg Neuts % (Manual) Baso # (Auto) Lymphocytes % (Manual) Monocytes % (Manual) Eosinophils % (Manual) Basophils % (Manual) Seg Neutrophils # Seg Neutrophils # Man Lymphocytes # (Manual) Monocytes # (Manual) Eosinophils # (Manual) Nucleated RBC % Basophils # (Manual) APTT Heparin Anti-Xa Level ABG pH POC ABG pO2 ABG pO2 ABG HCO3 ABG O2 Saturation ABG Base Excess POC ABG pCO2 ABG Hemoglobin ABG Oxyhemoglobin ABG Glucose Oxyhemoglobin Sodium Potassium Chloride Carbon Dioxide 33 H BUN 27 H Creatinine 0.6 L Glucose 132 H POC Glucose 152 H 166 H Lactic Acid Calcium Phosphorus Magnesium AST ALT Lactate Dehydrogenase CK-MB (CK-2) C-Reactive Protein NT-Pro-B Natriuret Pep Total Protein Albumin Arterial Blood Glucose Urine WBC (Auto) 12/25/19 12/26/19 12/26/19 18:29 00:17 00:18 WBC RBC Hgb Hct MCHC RDW MCV MCH Lymph % (Auto) Kendall % (Auto) Kendall # Eos # Lymph # (Auto) [place] # (Auto) Eos # (Auto) Seg Neutrophils % Seg Neuts % (Manual) Baso # (Auto) Lymphocytes % (Manual) Monocytes % (Manual) Eosinophils % (Manual) Basophils % (Manual) Seg Neutrophils # Seg Neutrophils # Man Lymphocytes # (Manual) Monocytes # (Manual) Eosinophils # (Manual) Nucleated RBC % Basophils # (Manual) APTT Heparin Anti-Xa Level ABG pH POC ABG pO2 ABG pO2 ABG HCO3 ABG O2 Saturation ABG Base Excess POC ABG pCO2 ABG Hemoglobin ABG Oxyhemoglobin ABG Glucose Oxyhemoglobin Sodium Potassium Chloride 97.8 L Carbon Dioxide BUN 25 H Creatinine 0.6 L Glucose 140 H POC Glucose 194 H 151 H Lactic Acid Calcium Phosphorus Magnesium AST ALT Lactate Dehydrogenase CK-MB (CK-2) C-Reactive Protein NT-Pro-B Natriuret Pep Total Protein Albumin Arterial Blood Glucose Urine WBC (Auto) 12/26/19 12/26/19 12/26/19 05:36 11:41 17:50 WBC RBC Hgb Hct MCHC RDW MCV MCH Lymph % (Auto) [place] % (Auto) [place] # Eos # Lymph # (Auto) [place] # (Auto) Eos # (Auto) Seg Neutrophils % Seg Neuts % (Manual) Baso # (Auto) Lymphocytes % (Manual) Monocytes % (Manual) Eosinophils % (Manual) Basophils % (Manual) Seg Neutrophils # Seg Neutrophils # Man Lymphocytes # (Manual) Monocytes # (Manual) Eosinophils # (Manual) Nucleated RBC % Basophils # (Manual) APTT Heparin Anti-Xa Level ABG pH POC ABG pO2 ABG pO2 ABG HCO3 ABG O2 Saturation ABG Base Excess POC ABG pCO2 ABG Hemoglobin ABG Oxyhemoglobin ABG Glucose Oxyhemoglobin Sodium Potassium Chloride Carbon Dioxide BUN Creatinine Glucose POC Glucose 156 H 148 H 139 H Lactic Acid Calcium Phosphorus Magnesium AST ALT Lactate Dehydrogenase CK-MB (CK-2) C-Reactive Protein NT-Pro-B Natriuret Pep Total Protein Albumin Arterial Blood Glucose Urine WBC (Auto) 12/26/19 12/27/19 12/27/19 23:19 05:34 12:02 WBC RBC Hgb Hct MCHC RDW MCV MCH Lymph % (Auto) [place] % (Auto) [place] # Eos # Lymph # (Auto) [place] # (Auto) Eos # (Auto) Seg Neutrophils % Seg Neuts % (Manual) Baso # (Auto) Lymphocytes % (Manual) Monocytes % (Manual) Eosinophils % (Manual) Basophils % (Manual) Seg Neutrophils # Seg Neutrophils # Man Lymphocytes # (Manual) Monocytes # (Manual) Eosinophils # (Manual) Nucleated RBC % Basophils # (Manual) APTT Heparin Anti-Xa Level ABG pH POC ABG pO2 ABG pO2 ABG HCO3 ABG O2 Saturation ABG Base Excess POC ABG pCO2 ABG Hemoglobin ABG Oxyhemoglobin ABG Glucose Oxyhemoglobin Sodium Potassium Chloride Carbon Dioxide BUN Creatinine Glucose POC Glucose 161 H 145 H 157 H Lactic Acid Calcium Phosphorus Magnesium AST ALT Lactate Dehydrogenase CK-MB (CK-2) C-Reactive Protein NT-Pro-B Natriuret Pep Total Protein Albumin Arterial Blood Glucose Urine WBC (Auto) 12/27/19 12/27/19 12/27/19 17:35 20:11 23:00 WBC RBC Hgb Hct MCHC RDW MCV MCH Lymph % (Auto) [place] % (Auto) [place] # Eos # Lymph # (Auto) [place] # (Auto) Eos # (Auto) Seg Neutrophils % Seg Neuts % (Manual) Baso # (Auto) Lymphocytes % (Manual) Monocytes % (Manual) Eosinophils % (Manual) Basophils % (Manual) Seg Neutrophils # Seg Neutrophils # Man Lymphocytes # (Manual) Monocytes # (Manual) Eosinophils # (Manual) Nucleated RBC % Basophils # (Manual) APTT Heparin Anti-Xa Level 0.19 L ABG pH POC ABG pO2 ABG pO2 ABG HCO3 ABG O2 Saturation ABG Base Excess POC ABG pCO2 ABG Hemoglobin ABG Oxyhemoglobin ABG Glucose Oxyhemoglobin Sodium Potassium Chloride Carbon Dioxide BUN Creatinine Glucose POC Glucose 158 H 155 H Lactic Acid Calcium Phosphorus Magnesium AST ALT Lactate Dehydrogenase CK-MB (CK-2) C-Reactive Protein NT-Pro-B Natriuret Pep Total Protein Albumin Arterial Blood Glucose Urine WBC (Auto) 12/27/19 12/28/19 12/28/19 23:45 02:41 02:41 WBC 13.0 H RBC 3.48 L Hgb 9.5 L Hct 30.6 L MCHC 31 L RDW 16.6 H MCV MCH 27 L Lymph % (Auto) 13.0 L [place] % (Auto) 8.0 H [place] # Eos # Lymph # (Auto) [place] # (Auto) 1.0 H Eos # (Auto) Seg Neutrophils % 76.3 H Seg Neuts % (Manual) Baso # (Auto) Lymphocytes % (Manual) Monocytes % (Manual) Eosinophils % (Manual) Basophils % (Manual) Seg Neutrophils # 9.9 H Seg Neutrophils # Man Lymphocytes # (Manual) Monocytes # (Manual) Eosinophils # (Manual) Nucleated RBC % Basophils # (Manual) APTT Heparin Anti-Xa Level ABG pH POC ABG pO2 ABG pO2 ABG HCO3 ABG O2 Saturation ABG Base Excess POC ABG pCO2 ABG Hemoglobin ABG Oxyhemoglobin ABG Glucose Oxyhemoglobin Sodium Potassium Chloride Carbon Dioxide BUN 22 H Creatinine 0.6 L Glucose 101 H POC Glucose 130 H Lactic Acid Calcium Phosphorus Magnesium AST ALT Lactate Dehydrogenase CK-MB (CK-2) C-Reactive Protein NT-Pro-B Natriuret Pep Total Protein Albumin Arterial Blood Glucose Urine WBC (Auto) 12/28/19 12/28/19 12/28/19 06:00 12:34 18:13 WBC RBC Hgb Hct MCHC RDW MCV MCH Lymph % (Auto) [place] % (Auto) [place] # Eos # Lymph # (Auto) [place] # (Auto) Eos # (Auto) Seg Neutrophils % Seg Neuts % (Manual) Baso # (Auto) Lymphocytes % (Manual) Monocytes % (Manual) Eosinophils % (Manual) Basophils % (Manual) Seg Neutrophils # Seg Neutrophils # Man Lymphocytes # (Manual) Monocytes # (Manual) Eosinophils # (Manual) Nucleated RBC % Basophils # (Manual) APTT Heparin Anti-Xa Level ABG pH POC ABG pO2 ABG pO2 ABG HCO3 ABG O2 Saturation ABG Base Excess POC ABG pCO2 ABG Hemoglobin ABG Oxyhemoglobin ABG Glucose Oxyhemoglobin Sodium Potassium Chloride Carbon Dioxide BUN Creatinine Glucose POC Glucose 150 H 161 H 128 H Lactic Acid Calcium Phosphorus Magnesium AST ALT Lactate Dehydrogenase CK-MB (CK-2) C-Reactive Protein NT-Pro-B Natriuret Pep Total Protein Albumin Arterial Blood Glucose Urine WBC (Auto) 12/28/19 12/29/19 12/29/19 23:36 05:21 11:40 WBC RBC Hgb Hct MCHC RDW MCV MCH Lymph % (Auto) [place] % (Auto) [place] # Eos # Lymph # (Auto) [place] # (Auto) Eos # (Auto) Seg Neutrophils % Seg Neuts % (Manual) Baso # (Auto) Lymphocytes % (Manual) Monocytes % (Manual) Eosinophils % (Manual) Basophils % (Manual) Seg Neutrophils # Seg Neutrophils # Man Lymphocytes # (Manual) Monocytes # (Manual) Eosinophils # (Manual) Nucleated RBC % Basophils # (Manual) APTT Heparin Anti-Xa Level ABG pH POC ABG pO2 ABG pO2 ABG HCO3 ABG O2 Saturation ABG Base Excess POC ABG pCO2 ABG Hemoglobin ABG Oxyhemoglobin ABG Glucose Oxyhemoglobin Sodium Potassium Chloride Carbon Dioxide BUN Creatinine Glucose POC Glucose 137 H 136 H 166 H Lactic Acid Calcium Phosphorus Magnesium AST ALT Lactate Dehydrogenase CK-MB (CK-2) C-Reactive Protein NT-Pro-B Natriuret Pep Total Protein Albumin Arterial Blood Glucose Urine WBC (Auto) 12/29/19 12/29/19 12/29/19 17:23 19:21 23:38 WBC RBC Hgb Hct MCHC RDW MCV MCH Lymph % (Auto) [place] % (Auto) [place] # Eos # Lymph # (Auto) [place] # (Auto) Eos # (Auto) Seg Neutrophils % Seg Neuts % (Manual) Baso # (Auto) Lymphocytes % (Manual) Monocytes % (Manual) Eosinophils % (Manual) Basophils % (Manual) Seg Neutrophils # Seg Neutrophils # Man Lymphocytes # (Manual) Monocytes # (Manual) Eosinophils # (Manual) Nucleated RBC % Basophils # (Manual) APTT Heparin Anti-Xa Level 0.20 L ABG pH POC ABG pO2 ABG pO2 ABG HCO3 ABG O2 Saturation ABG Base Excess POC ABG pCO2 ABG Hemoglobin ABG Oxyhemoglobin ABG Glucose Oxyhemoglobin Sodium Potassium Chloride Carbon Dioxide BUN Creatinine Glucose POC Glucose 144 H 141 H Lactic Acid Calcium Phosphorus Magnesium AST ALT Lactate Dehydrogenase CK-MB (CK-2) C-Reactive Protein NT-Pro-B Natriuret Pep Total Protein Albumin Arterial Blood Glucose Urine WBC (Auto) 12/30/19 12/30/19 12/30/19 03:58 03:58 04:59 WBC RBC 3.54 L Hgb 9.8 L Hct 30.7 L MCHC RDW 16.8 H MCV MCH Lymph % (Auto) [place] % (Auto) [place] # Eos # Lymph # (Auto) [place] # (Auto) Eos # (Auto) Seg Neutrophils % Seg Neuts % (Manual) Baso # (Auto) Lymphocytes % (Manual) Monocytes % (Manual) Eosinophils % (Manual) Basophils % (Manual) Seg Neutrophils # Seg Neutrophils # Man Lymphocytes # (Manual) Monocytes # (Manual) Eosinophils # (Manual) Nucleated RBC % Basophils # (Manual) APTT Heparin Anti-Xa Level ABG pH POC ABG pO2 ABG pO2 ABG HCO3 29.8 H ABG O2 Saturation ABG Base Excess 4.8 H POC ABG pCO2 ABG Hemoglobin 11.2 L ABG Oxyhemoglobin ABG Glucose Oxyhemoglobin 93.8 L Sodium Potassium Chloride 97.8 L Carbon Dioxide BUN 26 H Creatinine Glucose 168 H POC Glucose Lactic Acid Calcium Phosphorus Magnesium AST ALT Lactate Dehydrogenase CK-MB (CK-2) C-Reactive Protein NT-Pro-B Natriuret Pep Total Protein Albumin Arterial Blood Glucose Urine WBC (Auto) 12/30/19 12/30/19 12/30/19 05:45 11:34 17:28 WBC RBC Hgb Hct MCHC RDW MCV MCH Lymph % (Auto) [place] % (Auto) [place] # Eos # Lymph # (Auto) [place] # (Auto) Eos # (Auto) Seg Neutrophils % Seg Neuts % (Manual) Baso # (Auto) Lymphocytes % (Manual) Monocytes % (Manual) Eosinophils % (Manual) Basophils % (Manual) Seg Neutrophils # Seg Neutrophils # Man Lymphocytes # (Manual) Monocytes # (Manual) Eosinophils # (Manual) Nucleated RBC % Basophils # (Manual) APTT Heparin Anti-Xa Level ABG pH POC ABG pO2 ABG pO2 ABG HCO3 ABG O2 Saturation ABG Base Excess POC ABG pCO2 ABG Hemoglobin ABG Oxyhemoglobin ABG Glucose Oxyhemoglobin Sodium Potassium Chloride Carbon Dioxide BUN Creatinine Glucose POC Glucose 163 H 180 H 150 H Lactic Acid Calcium Phosphorus Magnesium AST ALT Lactate Dehydrogenase CK-MB (CK-2) C-Reactive Protein NT-Pro-B Natriuret Pep Total Protein Albumin Arterial Blood Glucose Urine WBC (Auto) 12/30/19 12/31/19 12/31/19 23:43 04:55 05:07 WBC RBC Hgb Hct MCHC RDW MCV MCH Lymph % (Auto) [place] % (Auto) [place] # Eos # Lymph # (Auto) [place] # (Auto) Eos # (Auto) Seg Neutrophils % Seg Neuts % (Manual) Baso # (Auto) Lymphocytes % (Manual) Monocytes % (Manual) Eosinophils % (Manual) Basophils % (Manual) Seg Neutrophils # Seg Neutrophils # Man Lymphocytes # (Manual) Monocytes # (Manual) Eosinophils # (Manual) Nucleated RBC % Basophils # (Manual) APTT Heparin Anti-Xa Level ABG pH POC ABG pO2 ABG pO2 ABG HCO3 ABG O2 Saturation ABG Base Excess POC ABG pCO2 ABG Hemoglobin ABG Oxyhemoglobin ABG Glucose Oxyhemoglobin Sodium Potassium 5.6 H D Chloride Carbon Dioxide BUN 33 H Creatinine Glucose 131 H POC Glucose 142 H 134 H Lactic Acid Calcium Phosphorus Magnesium AST ALT Lactate Dehydrogenase CK-MB (CK-2) C-Reactive Protein NT-Pro-B Natriuret Pep Total Protein Albumin Arterial Blood Glucose Urine WBC (Auto) 12/31/19 12/31/19 12/31/19 11:30 17:19 17:36 WBC RBC Hgb Hct MCHC RDW MCV MCH Lymph % (Auto) [place] % (Auto) [place] # Eos # Lymph # (Auto) [place] # (Auto) Eos # (Auto) Seg Neutrophils % Seg Neuts % (Manual) Baso # (Auto) Lymphocytes % (Manual) Monocytes % (Manual) Eosinophils % (Manual) Basophils % (Manual) Seg Neutrophils # Seg Neutrophils # Man Lymphocytes # (Manual) Monocytes # (Manual) Eosinophils # (Manual) Nucleated RBC % Basophils # (Manual) APTT Heparin Anti-Xa Level ABG pH POC ABG pO2 ABG pO2 ABG HCO3 ABG O2 Saturation ABG Base Excess POC ABG pCO2 ABG Hemoglobin ABG Oxyhemoglobin ABG Glucose Oxyhemoglobin Sodium Potassium Chloride Carbon Dioxide BUN 35 H Creatinine Glucose 156 H POC Glucose 158 H 181 H Lactic Acid Calcium Phosphorus Magnesium AST ALT Lactate Dehydrogenase CK-MB (CK-2) C-Reactive Protein NT-Pro-B Natriuret Pep Total Protein Albumin Arterial Blood Glucose Urine WBC (Auto) 12/31/19 12/31/19 12/31/19 18:16 19:41 21:53 WBC RBC Hgb Hct MCHC RDW MCV MCH Lymph % (Auto) [place] % (Auto) [place] # Eos # Lymph # (Auto) [place] # (Auto) Eos # (Auto) Seg Neutrophils % Seg Neuts % (Manual) Baso # (Auto) Lymphocytes % (Manual) Monocytes % (Manual) Eosinophils % (Manual) Basophils % (Manual) Seg Neutrophils # Seg Neutrophils # Man Lymphocytes # (Manual) Monocytes # (Manual) Eosinophils # (Manual) Nucleated RBC % Basophils # (Manual) APTT Heparin Anti-Xa Level 0.20 L ABG pH POC ABG pO2 ABG pO2 ABG HCO3 ABG O2 Saturation ABG Base Excess POC ABG pCO2 ABG Hemoglobin ABG Oxyhemoglobin ABG Glucose Oxyhemoglobin Sodium Potassium Chloride Carbon Dioxide BUN 34 H Creatinine Glucose 169 H POC Glucose 141 H Lactic Acid Calcium Phosphorus Magnesium AST ALT Lactate Dehydrogenase CK-MB (CK-2) C-Reactive Protein NT-Pro-B Natriuret Pep Total Protein Albumin Arterial Blood Glucose Urine WBC (Auto) 12/31/19 01/01/20 01/01/20 23:51 05:17 10:40 WBC RBC Hgb Hct MCHC RDW MCV MCH Lymph % (Auto) [place] % (Auto) [place] # Eos # Lymph # (Auto) [place] # (Auto) Eos # (Auto) Seg Neutrophils % Seg Neuts % (Manual) Baso # (Auto) Lymphocytes % (Manual) Monocytes % (Manual) Eosinophils % (Manual) Basophils % (Manual) Seg Neutrophils # Seg Neutrophils # Man Lymphocytes # (Manual) Monocytes # (Manual) Eosinophils # (Manual) Nucleated RBC % Basophils # (Manual) APTT Heparin Anti-Xa Level ABG pH POC ABG pO2 ABG pO2 ABG HCO3 ABG O2 Saturation ABG Base Excess POC ABG pCO2 ABG Hemoglobin ABG Oxyhemoglobin ABG Glucose Oxyhemoglobin Sodium Potassium Chloride Carbon Dioxide BUN 31 H Creatinine 0.7 L Glucose 137 H POC Glucose 131 H 155 H Lactic Acid Calcium Phosphorus Magnesium AST 73 H ALT 97 H Lactate Dehydrogenase CK-MB (CK-2) C-Reactive Protein NT-Pro-B Natriuret Pep 3866 H Total Protein Albumin 2.8 L Arterial Blood Glucose Urine WBC (Auto) 01/01/20 01/01/20 01/01/20 12:26 15:33 17:53 WBC 14.3 H RBC 3.35 L Hgb 9.1 L Hct 28.8 L MCHC RDW 17.0 H MCV MCH 27 L Lymph % (Auto) 7.0 L [place] % (Auto) 7.6 H [place] # Eos # Lymph # (Auto) 1.0 L [place] # (Auto) 1.1 H Eos # (Auto) Seg Neutrophils % 83.3 H Seg Neuts % (Manual) Baso # (Auto) Lymphocytes % (Manual) Monocytes % (Manual) Eosinophils % (Manual) Basophils % (Manual) Seg Neutrophils # 12.0 H Seg Neutrophils # Man Lymphocytes # (Manual) Monocytes # (Manual) Eosinophils # (Manual) Nucleated RBC % Basophils # (Manual) APTT Heparin Anti-Xa Level ABG pH POC ABG pO2 ABG pO2 ABG HCO3 ABG O2 Saturation ABG Base Excess POC ABG pCO2 ABG Hemoglobin ABG Oxyhemoglobin ABG Glucose Oxyhemoglobin Sodium Potassium Chloride Carbon Dioxide BUN Creatinine Glucose POC Glucose 128 H 128 H Lactic Acid Calcium Phosphorus Magnesium AST ALT Lactate Dehydrogenase CK-MB (CK-2) C-Reactive Protein NT-Pro-B Natriuret Pep Total Protein Albumin Arterial Blood Glucose Urine WBC (Auto) 01/01/20 01/02/20 01/02/20 23:04 05:39 07:00 WBC RBC Hgb Hct MCHC RDW MCV MCH Lymph % (Auto) [place] % (Auto) [place] # Eos # Lymph # (Auto) [place] # (Auto) Eos # (Auto) Seg Neutrophils % Seg Neuts % (Manual) Baso # (Auto) Lymphocytes % (Manual) Monocytes % (Manual) Eosinophils % (Manual) Basophils % (Manual) Seg Neutrophils # Seg Neutrophils # Man Lymphocytes # (Manual) Monocytes # (Manual) Eosinophils # (Manual) Nucleated RBC % Basophils # (Manual) APTT Heparin Anti-Xa Level 0.13 L ABG pH POC ABG pO2 ABG pO2 ABG HCO3 ABG O2 Saturation ABG Base Excess POC ABG pCO2 ABG Hemoglobin ABG Oxyhemoglobin ABG Glucose Oxyhemoglobin Sodium Potassium Chloride Carbon Dioxide BUN Creatinine Glucose POC Glucose 120 H 169 H Lactic Acid Calcium Phosphorus Magnesium AST ALT Lactate Dehydrogenase CK-MB (CK-2) C-Reactive Protein NT-Pro-B Natriuret Pep Total Protein Albumin Arterial Blood Glucose Urine WBC (Auto) 01/02/20 01/02/20 01/02/20 12:15 14:06 17:58 WBC RBC Hgb Hct MCHC RDW MCV MCH Lymph % (Auto) [place] % (Auto) [place] # Eos # Lymph # (Auto) [place] # (Auto) Eos # (Auto) Seg Neutrophils % Seg Neuts % (Manual) Baso # (Auto) Lymphocytes % (Manual) Monocytes % (Manual) Eosinophils % (Manual) Basophils % (Manual) Seg Neutrophils # Seg Neutrophils # Man Lymphocytes # (Manual) Monocytes # (Manual) Eosinophils # (Manual) Nucleated RBC % Basophils # (Manual) APTT Heparin Anti-Xa Level < 0.10 L ABG pH POC ABG pO2 ABG pO2 ABG HCO3 ABG O2 Saturation ABG Base Excess POC ABG pCO2 ABG Hemoglobin ABG Oxyhemoglobin ABG Glucose Oxyhemoglobin Sodium Potassium Chloride Carbon Dioxide BUN Creatinine Glucose POC Glucose 190 H 198 H Lactic Acid Calcium Phosphorus Magnesium AST ALT Lactate Dehydrogenase CK-MB (CK-2) C-Reactive Protein NT-Pro-B Natriuret Pep Total Protein Albumin Arterial Blood Glucose Urine WBC (Auto) 01/02/20 01/02/20 01/03/20 21:43 23:33 05:42 WBC RBC Hgb Hct MCHC RDW MCV MCH Lymph % (Auto) [place] % (Auto) [place] # Eos # Lymph # (Auto) [place] # (Auto) Eos # (Auto) Seg Neutrophils % Seg Neuts % (Manual) Baso # (Auto) Lymphocytes % (Manual) Monocytes % (Manual) Eosinophils % (Manual) Basophils % (Manual) Seg Neutrophils # Seg Neutrophils # Man Lymphocytes # (Manual) Monocytes # (Manual) Eosinophils # (Manual) Nucleated RBC % Basophils # (Manual) APTT Heparin Anti-Xa Level 0.10 L ABG pH POC ABG pO2 ABG pO2 ABG HCO3 ABG O2 Saturation ABG Base Excess POC ABG pCO2 ABG Hemoglobin ABG Oxyhemoglobin ABG Glucose Oxyhemoglobin Sodium Potassium Chloride Carbon Dioxide BUN Creatinine Glucose POC Glucose 180 H 163 H Lactic Acid Calcium Phosphorus Magnesium AST ALT Lactate Dehydrogenase CK-MB (CK-2) C-Reactive Protein NT-Pro-B Natriuret Pep Total Protein Albumin Arterial Blood Glucose Urine WBC (Auto) 01/03/20 01/03/20 01/03/20 06:50 07:25 07:45 WBC 12.1 H RBC 3.35 L Hgb 9.0 L Hct 28.9 L MCHC 31 L RDW 16.6 H MCV MCH 27 L Lymph % (Auto) 13.0 L [place] % (Auto) 8.6 H [place] # Eos # Lymph # (Auto) [place] # (Auto) 1.0 H Eos # (Auto) Seg Neutrophils % 75.9 H Seg Neuts % (Manual) Baso # (Auto) Lymphocytes % (Manual) Monocytes % (Manual) Eosinophils % (Manual) Basophils % (Manual) Seg Neutrophils # 9.2 H Seg Neutrophils # Man Lymphocytes # (Manual) Monocytes # (Manual) Eosinophils # (Manual) Nucleated RBC % Basophils # (Manual) APTT Heparin Anti-Xa Level 0.29 L ABG pH POC ABG pO2 ABG pO2 ABG HCO3 ABG O2 Saturation ABG Base Excess POC ABG pCO2 ABG Hemoglobin ABG Oxyhemoglobin ABG Glucose Oxyhemoglobin Sodium Potassium 3.3 L D Chloride Carbon Dioxide 35 H D BUN 23 H Creatinine 0.6 L Glucose 149 H POC Glucose Lactic Acid Calcium Phosphorus Magnesium AST ALT 88 H Lactate Dehydrogenase CK-MB (CK-2) C-Reactive Protein NT-Pro-B Natriuret Pep Total Protein 6.2 L Albumin 2.9 L Arterial Blood Glucose Urine WBC (Auto) 01/03/20 01/03/20 01/03/20 12:05 17:42 18:30 WBC RBC Hgb Hct MCHC RDW MCV MCH Lymph % (Auto) [place] % (Auto) [place] # Eos # Lymph # (Auto) [place] # (Auto) Eos # (Auto) Seg Neutrophils % Seg Neuts % (Manual) Baso # (Auto) Lymphocytes % (Manual) Monocytes % (Manual) Eosinophils % (Manual) Basophils % (Manual) Seg Neutrophils # Seg Neutrophils # Man Lymphocytes # (Manual) Monocytes # (Manual) Eosinophils # (Manual) Nucleated RBC % Basophils # (Manual) APTT Heparin Anti-Xa Level ABG pH POC ABG pO2 ABG pO2 70.7 L ABG HCO3 36.1 H ABG O2 Saturation 94.4 L ABG Base Excess 10.0 H POC ABG pCO2 ABG Hemoglobin 9.7 L ABG Oxyhemoglobin ABG Glucose Oxyhemoglobin 91.8 L Sodium Potassium Chloride Carbon Dioxide BUN Creatinine Glucose POC Glucose 128 H 132 H Lactic Acid Calcium Phosphorus Magnesium AST ALT Lactate Dehydrogenase CK-MB (CK-2) C-Reactive Protein NT-Pro-B Natriuret Pep Total Protein Albumin Arterial Blood Glucose Urine WBC (Auto) 01/04/20 01/04/20 01/04/20 00:10 04:26 05:23 WBC RBC Hgb Hct MCHC RDW MCV MCH Lymph % (Auto) [place] % (Auto) [place] # Eos # Lymph # (Auto) [place] # (Auto) Eos # (Auto) Seg Neutrophils % Seg Neuts % (Manual) Baso # (Auto) Lymphocytes % (Manual) Monocytes % (Manual) Eosinophils % (Manual) Basophils % (Manual) Seg Neutrophils # Seg Neutrophils # Man Lymphocytes # (Manual) Monocytes # (Manual) Eosinophils # (Manual) Nucleated RBC % Basophils # (Manual) APTT Heparin Anti-Xa Level 0.16 L ABG pH POC ABG pO2 ABG pO2 ABG HCO3 ABG O2 Saturation ABG Base Excess POC ABG pCO2 ABG Hemoglobin ABG Oxyhemoglobin ABG Glucose Oxyhemoglobin Sodium Potassium Chloride Carbon Dioxide BUN Creatinine Glucose POC Glucose 121 H 119 H Lactic Acid Calcium Phosphorus Magnesium AST ALT Lactate Dehydrogenase CK-MB (CK-2) C-Reactive Protein NT-Pro-B Natriuret Pep Total Protein Albumin Arterial Blood Glucose Urine WBC (Auto) 01/04/20 01/04/20 01/04/20 09:50 09:50 12:18 WBC 15.4 H RBC 3.30 L Hgb 8.7 L Hct 28.2 L MCHC 31 L RDW 17.0 H MCV MCH 26 L Lymph % (Auto) [place] % (Auto) 7.6 H [place] # Eos # Lymph # (Auto) [place] # (Auto) 1.2 H Eos # (Auto) Seg Neutrophils % 75.4 H Seg Neuts % (Manual) Baso # (Auto) Lymphocytes % (Manual) Monocytes % (Manual) Eosinophils % (Manual) Basophils % (Manual) Seg Neutrophils # 11.6 H Seg Neutrophils # Man Lymphocytes # (Manual) Monocytes # (Manual) Eosinophils # (Manual) Nucleated RBC % Basophils # (Manual) APTT Heparin Anti-Xa Level ABG pH POC ABG pO2 ABG pO2 ABG HCO3 ABG O2 Saturation ABG Base Excess POC ABG pCO2 ABG Hemoglobin ABG Oxyhemoglobin ABG Glucose Oxyhemoglobin Sodium 148 H Potassium 3.5 L Chloride Carbon Dioxide 32 H BUN Creatinine 0.6 L Glucose 114 H POC Glucose 111 H Lactic Acid Calcium Phosphorus Magnesium AST ALT 59 H Lactate Dehydrogenase CK-MB (CK-2) C-Reactive Protein NT-Pro-B Natriuret Pep Total Protein Albumin 2.6 L Arterial Blood Glucose Urine WBC (Auto) 01/05/20 01/05/20 01/05/20 04:05 04:05 05:19 WBC 11.7 H RBC 3.50 L Hgb 9.3 L Hct 29.9 L MCHC 31 L RDW 16.6 H MCV MCH 27 L Lymph % (Auto) 13.1 L [place] % (Auto) 9.7 H [place] # Eos # Lymph # (Auto) [place] # (Auto) 1.1 H Eos # (Auto) Seg Neutrophils % 74.0 H Seg Neuts % (Manual) Baso # (Auto) Lymphocytes % (Manual) Monocytes % (Manual) Eosinophils % (Manual) Basophils % (Manual) Seg Neutrophils # 8.6 H Seg Neutrophils # Man Lymphocytes # (Manual) Monocytes # (Manual) Eosinophils # (Manual) Nucleated RBC % Basophils # (Manual) APTT Heparin Anti-Xa Level ABG pH POC ABG pO2 ABG pO2 ABG HCO3 ABG O2 Saturation ABG Base Excess POC ABG pCO2 ABG Hemoglobin ABG Oxyhemoglobin ABG Glucose Oxyhemoglobin Sodium 151 H Potassium Chloride Carbon Dioxide 34 H BUN Creatinine 0.7 L Glucose POC Glucose 112 H Lactic Acid Calcium Phosphorus Magnesium AST ALT 59 H Lactate Dehydrogenase CK-MB (CK-2) C-Reactive Protein NT-Pro-B Natriuret Pep Total Protein 5.8 L Albumin 2.6 L Arterial Blood Glucose Urine WBC (Auto) 01/05/20 01/06/20 01/06/20 16:04 00:23 04:44 WBC RBC 3.36 L Hgb 8.9 L Hct 28.7 L MCHC 31 L RDW 16.9 H MCV MCH 26 L Lymph % (Auto) [place] % (Auto) 9.4 H [place] # Eos # Lymph # (Auto) [place] # (Auto) Eos # (Auto) Seg Neutrophils % Seg Neuts % (Manual) Baso # (Auto) Lymphocytes % (Manual) Monocytes % (Manual) Eosinophils % (Manual) Basophils % (Manual) Seg Neutrophils # Seg Neutrophils # Man Lymphocytes # (Manual) Monocytes # (Manual) Eosinophils # (Manual) Nucleated RBC % Basophils # (Manual) APTT Heparin Anti-Xa Level ABG pH POC ABG pO2 ABG pO2 ABG HCO3 ABG O2 Saturation ABG Base Excess POC ABG pCO2 ABG Hemoglobin ABG Oxyhemoglobin ABG Glucose Oxyhemoglobin Sodium 151 H Potassium 3.2 L Chloride Carbon Dioxide 34 H BUN Creatinine 0.6 L Glucose POC Glucose 107 H Lactic Acid Calcium Phosphorus Magnesium AST ALT Lactate Dehydrogenase CK-MB (CK-2) C-Reactive Protein NT-Pro-B Natriuret Pep Total Protein Albumin Arterial Blood Glucose Urine WBC (Auto) 01/06/20 01/06/20 01/06/20 04:44 05:33 12:04 WBC RBC Hgb Hct MCHC RDW MCV MCH Lymph % (Auto) [place] % (Auto) [place] # Eos # Lymph # (Auto) [place] # (Auto) Eos # (Auto) Seg Neutrophils % Seg Neuts % (Manual) Baso # (Auto) Lymphocytes % (Manual) Monocytes % (Manual) Eosinophils % (Manual) Basophils % (Manual) Seg Neutrophils # Seg Neutrophils # Man Lymphocytes # (Manual) Monocytes # (Manual) Eosinophils # (Manual) Nucleated RBC % Basophils # (Manual) APTT Heparin Anti-Xa Level ABG pH POC ABG pO2 ABG pO2 ABG HCO3 ABG O2 Saturation ABG Base Excess POC ABG pCO2 ABG Hemoglobin ABG Oxyhemoglobin ABG Glucose Oxyhemoglobin Sodium 151 H Potassium 3.4 L Chloride Carbon Dioxide 33 H BUN Creatinine 0.6 L Glucose 118 H POC Glucose 118 H 123 H Lactic Acid Calcium Phosphorus Magnesium AST ALT Lactate Dehydrogenase CK-MB (CK-2) C-Reactive Protein NT-Pro-B Natriuret Pep Total Protein 6.2 L Albumin 2.6 L Arterial Blood Glucose Urine WBC (Auto) 01/06/20 01/07/20 01/07/20 17:54 00:06 04:10 WBC RBC 3.42 L Hgb 8.9 L Hct 29.0 L MCHC 31 L RDW 17.1 H MCV MCH 26 L Lymph % (Auto) [place] % (Auto) 8.4 H [place] # Eos # Lymph # (Auto) [place] # (Auto) Eos # (Auto) Seg Neutrophils % Seg Neuts % (Manual) Baso # (Auto) Lymphocytes % (Manual) Monocytes % (Manual) Eosinophils % (Manual) Basophils % (Manual) Seg Neutrophils # Seg Neutrophils # Man Lymphocytes # (Manual) Monocytes # (Manual) Eosinophils # (Manual) Nucleated RBC % Basophils # (Manual) APTT Heparin Anti-Xa Level ABG pH POC ABG pO2 ABG pO2 ABG HCO3 ABG O2 Saturation ABG Base Excess POC ABG pCO2 ABG Hemoglobin ABG Oxyhemoglobin ABG Glucose Oxyhemoglobin Sodium Potassium Chloride Carbon Dioxide BUN Creatinine Glucose POC Glucose 112 H 126 H Lactic Acid Calcium Phosphorus Magnesium AST ALT Lactate Dehydrogenase CK-MB (CK-2) C-Reactive Protein NT-Pro-B Natriuret Pep Total Protein Albumin Arterial Blood Glucose Urine WBC (Auto) 01/07/20 01/07/20 01/07/20 04:10 05:59 12:27 WBC RBC Hgb Hct MCHC RDW MCV MCH Lymph % (Auto) [place] % (Auto) [place] # Eos # Lymph # (Auto) [place] # (Auto) Eos # (Auto) Seg Neutrophils % Seg Neuts % (Manual) Baso # (Auto) Lymphocytes % (Manual) Monocytes % (Manual) Eosinophils % (Manual) Basophils % (Manual) Seg Neutrophils # Seg Neutrophils # Man Lymphocytes # (Manual) Monocytes # (Manual) Eosinophils # (Manual) Nucleated RBC % Basophils # (Manual) APTT Heparin Anti-Xa Level ABG pH POC ABG pO2 ABG pO2 ABG HCO3 ABG O2 Saturation ABG Base Excess POC ABG pCO2 ABG Hemoglobin ABG Oxyhemoglobin ABG Glucose Oxyhemoglobin Sodium 153 H Potassium 3.5 L Chloride Carbon Dioxide 34 H BUN Creatinine 0.6 L Glucose 121 H POC Glucose 121 H 126 H Lactic Acid Calcium Phosphorus Magnesium AST ALT Lactate Dehydrogenase CK-MB (CK-2) C-Reactive Protein NT-Pro-B Natriuret Pep Total Protein 5.9 L Albumin 2.4 L Arterial Blood Glucose Urine WBC (Auto) 01/07/20 01/08/20 01/08/20 18:12 00:03 05:41 WBC RBC Hgb Hct MCHC RDW MCV MCH Lymph % (Auto) [place] % (Auto) [place] # Eos # Lymph # (Auto) [place] # (Auto) Eos # (Auto) Seg Neutrophils % Seg Neuts % (Manual) Baso # (Auto) Lymphocytes % (Manual) Monocytes % (Manual) Eosinophils % (Manual) Basophils % (Manual) Seg Neutrophils # Seg Neutrophils # Man Lymphocytes # (Manual) Monocytes # (Manual) Eosinophils # (Manual) Nucleated RBC % Basophils # (Manual) APTT Heparin Anti-Xa Level ABG pH POC ABG pO2 ABG pO2 ABG HCO3 ABG O2 Saturation ABG Base Excess POC ABG pCO2 ABG Hemoglobin ABG Oxyhemoglobin ABG Glucose Oxyhemoglobin Sodium Potassium Chloride Carbon Dioxide BUN Creatinine Glucose POC Glucose 124 H 130 H 138 H Lactic Acid Calcium Phosphorus Magnesium AST ALT Lactate Dehydrogenase CK-MB (CK-2) C-Reactive Protein NT-Pro-B Natriuret Pep Total Protein Albumin Arterial Blood Glucose Urine WBC (Auto) 01/08/20 01/08/20 01/08/20 09:28 11:42 18:21 WBC RBC Hgb Hct MCHC RDW MCV MCH Lymph % (Auto) [place] % (Auto) [place] # Eos # Lymph # (Auto) [place] # (Auto) Eos # (Auto) Seg Neutrophils % Seg Neuts % (Manual) Baso # (Auto) Lymphocytes % (Manual) Monocytes % (Manual) Eosinophils % (Manual) Basophils % (Manual) Seg Neutrophils # Seg Neutrophils # Man Lymphocytes # (Manual) Monocytes # (Manual) Eosinophils # (Manual) Nucleated RBC % Basophils # (Manual) APTT Heparin Anti-Xa Level ABG pH POC ABG pO2 ABG pO2 ABG HCO3 ABG O2 Saturation ABG Base Excess POC ABG pCO2 ABG Hemoglobin ABG Oxyhemoglobin ABG Glucose Oxyhemoglobin Sodium Potassium Chloride Carbon Dioxide BUN Creatinine Glucose POC Glucose 181 H 150 H 129 H Lactic Acid Calcium Phosphorus Magnesium AST ALT Lactate Dehydrogenase CK-MB (CK-2) C-Reactive Protein NT-Pro-B Natriuret Pep Total Protein Albumin Arterial Blood Glucose Urine WBC (Auto) 01/08/20 01/08/20 01/09/20 19:25 23:55 04:11 WBC RBC 3.43 L Hgb 8.9 L Hct 28.7 L MCHC 31 L RDW 17.6 H MCV MCH 26 L Lymph % (Auto) [place] % (Auto) 8.6 H [place] # Eos # Lymph # (Auto) [place] # (Auto) Eos # (Auto) Seg Neutrophils % Seg Neuts % (Manual) Baso # (Auto) Lymphocytes % (Manual) Monocytes % (Manual) Eosinophils % (Manual) Basophils % (Manual) Seg Neutrophils # Seg Neutrophils # Man Lymphocytes # (Manual) Monocytes # (Manual) Eosinophils # (Manual) Nucleated RBC % Basophils # (Manual) APTT Heparin Anti-Xa Level ABG pH POC ABG pO2 ABG pO2 ABG HCO3 ABG O2 Saturation ABG Base Excess POC ABG pCO2 ABG Hemoglobin ABG Oxyhemoglobin ABG Glucose Oxyhemoglobin Sodium Potassium Chloride Carbon Dioxide BUN Creatinine 0.7 L Glucose 117 H POC Glucose 132 H Lactic Acid Calcium Phosphorus Magnesium AST ALT Lactate Dehydrogenase CK-MB (CK-2) C-Reactive Protein NT-Pro-B Natriuret Pep Total Protein Albumin Arterial Blood Glucose Urine WBC (Auto) 01/09/20 01/09/20 01/09/20 04:11 05:38 22:58 WBC RBC Hgb Hct MCHC RDW MCV MCH Lymph % (Auto) [place] % (Auto) [place] # Eos # Lymph # (Auto) [place] # (Auto) Eos # (Auto) Seg Neutrophils % Seg Neuts % (Manual) Baso # (Auto) Lymphocytes % (Manual) Monocytes % (Manual) Eosinophils % (Manual) Basophils % (Manual) Seg Neutrophils # Seg Neutrophils # Man Lymphocytes # (Manual) Monocytes # (Manual) Eosinophils # (Manual) Nucleated RBC % Basophils # (Manual) APTT Heparin Anti-Xa Level ABG pH POC ABG pO2 ABG pO2 ABG HCO3 ABG O2 Saturation ABG Base Excess POC ABG pCO2 ABG Hemoglobin ABG Oxyhemoglobin ABG Glucose Oxyhemoglobin Sodium 147 H Potassium 3.3 L D Chloride Carbon Dioxide 32 H BUN Creatinine 0.6 L Glucose 106 H POC Glucose 107 H 113 H Lactic Acid Calcium Phosphorus Magnesium AST ALT Lactate Dehydrogenase CK-MB (CK-2) C-Reactive Protein NT-Pro-B Natriuret Pep Total Protein Albumin Arterial Blood Glucose Urine WBC (Auto) 01/10/20 01/10/20 01/10/20 04:05 11:36 17:54 WBC RBC Hgb Hct MCHC RDW MCV MCH Lymph % (Auto) [place] % (Auto) [place] # Eos # Lymph # (Auto) [place] # (Auto) Eos # (Auto) Seg Neutrophils % Seg Neuts % (Manual) Baso # (Auto) Lymphocytes % (Manual) Monocytes % (Manual) Eosinophils % (Manual) Basophils % (Manual) Seg Neutrophils # Seg Neutrophils # Man Lymphocytes # (Manual) Monocytes # (Manual) Eosinophils # (Manual) Nucleated RBC % Basophils # (Manual) APTT Heparin Anti-Xa Level ABG pH POC ABG pO2 ABG pO2 ABG HCO3 ABG O2 Saturation ABG Base Excess POC ABG pCO2 ABG Hemoglobin ABG Oxyhemoglobin ABG Glucose Oxyhemoglobin Sodium Potassium Chloride Carbon Dioxide BUN Creatinine 0.7 L Glucose 110 H POC Glucose 129 H 117 H Lactic Acid Calcium Phosphorus Magnesium AST ALT Lactate Dehydrogenase CK-MB (CK-2) C-Reactive Protein NT-Pro-B Natriuret Pep Total Protein Albumin Arterial Blood Glucose Urine WBC (Auto) 01/10/20 01/11/20 01/11/20 23:52 03:19 12:09 WBC RBC Hgb Hct MCHC RDW MCV MCH Lymph % (Auto) [place] % (Auto) [place] # Eos # Lymph # (Auto) [place] # (Auto) Eos # (Auto) Seg Neutrophils % Seg Neuts % (Manual) Baso # (Auto) Lymphocytes % (Manual) Monocytes % (Manual) Eosinophils % (Manual) Basophils % (Manual) Seg Neutrophils # Seg Neutrophils # Man Lymphocytes # (Manual) Monocytes # (Manual) Eosinophils # (Manual) Nucleated RBC % Basophils # (Manual) APTT Heparin Anti-Xa Level ABG pH POC ABG pO2 ABG pO2 ABG HCO3 ABG O2 Saturation ABG Base Excess POC ABG pCO2 ABG Hemoglobin ABG Oxyhemoglobin ABG Glucose Oxyhemoglobin Sodium Potassium Chloride Carbon Dioxide BUN Creatinine Glucose POC Glucose 117 H 136 H 115 H Lactic Acid Calcium Phosphorus Magnesium AST ALT Lactate Dehydrogenase CK-MB (CK-2) C-Reactive Protein NT-Pro-B Natriuret Pep Total Protein Albumin Arterial Blood Glucose Urine WBC (Auto) 01/11/20 01/11/20 01/12/20 18:27 23:28 00:23 WBC RBC Hgb 9.8 L Hct 31.6 L MCHC 31 L RDW 17.8 H MCV 83 L MCH 26 L Lymph % (Auto) [place] % (Auto) 8.0 H [place] # Eos # Lymph # (Auto) [place] # (Auto) Eos # (Auto) Seg Neutrophils % Seg Neuts % (Manual) Baso # (Auto) Lymphocytes % (Manual) Monocytes % (Manual) Eosinophils % (Manual) Basophils % (Manual) Seg Neutrophils # Seg Neutrophils # Man Lymphocytes # (Manual) Monocytes # (Manual) Eosinophils # (Manual) Nucleated RBC % Basophils # (Manual) APTT Heparin Anti-Xa Level ABG pH POC ABG pO2 ABG pO2 ABG HCO3 ABG O2 Saturation ABG Base Excess POC ABG pCO2 ABG Hemoglobin ABG Oxyhemoglobin ABG Glucose Oxyhemoglobin Sodium Potassium Chloride Carbon Dioxide BUN Creatinine Glucose POC Glucose 118 H 122 H Lactic Acid Calcium Phosphorus Magnesium AST ALT Lactate Dehydrogenase CK-MB (CK-2) C-Reactive Protein NT-Pro-B Natriuret Pep Total Protein Albumin Arterial Blood Glucose Urine WBC (Auto) 01/12/20 01/12/20 01/12/20 00:23 04:18 04:18 WBC RBC Hgb 9.6 L Hct 30.9 L MCHC 31 L RDW 17.3 H MCV 81 L MCH 25 L Lymph % (Auto) [place] % (Auto) [place] # Eos # Lymph # (Auto) [place] # (Auto) Eos # (Auto) Seg Neutrophils % Seg Neuts % (Manual) Baso # (Auto) Lymphocytes % (Manual) Monocytes % (Manual) Eosinophils % (Manual) Basophils % (Manual) Seg Neutrophils # Seg Neutrophils # Man Lymphocytes # (Manual) Monocytes # (Manual) Eosinophils # (Manual) Nucleated RBC % Basophils # (Manual) APTT Heparin Anti-Xa Level ABG pH POC ABG pO2 ABG pO2 ABG HCO3 ABG O2 Saturation ABG Base Excess POC ABG pCO2 ABG Hemoglobin ABG Oxyhemoglobin ABG Glucose Oxyhemoglobin Sodium Potassium Chloride Carbon Dioxide BUN Creatinine 0.7 L 0.7 L Glucose 111 H 108 H POC Glucose Lactic Acid Calcium Phosphorus Magnesium AST ALT Lactate Dehydrogenase CK-MB (CK-2) C-Reactive Protein NT-Pro-B Natriuret Pep Total Protein Albumin 2.6 L Arterial Blood Glucose Urine WBC (Auto) 01/12/20 01/12/20 01/12/20 06:03 12:27 13:58 WBC RBC Hgb Hct MCHC RDW MCV MCH Lymph % (Auto) [place] % (Auto) [place] # Eos # Lymph # (Auto) [place] # (Auto) Eos # (Auto) Seg Neutrophils % Seg Neuts % (Manual) Baso # (Auto) Lymphocytes % (Manual) Monocytes % (Manual) Eosinophils % (Manual) Basophils % (Manual) Seg Neutrophils # Seg Neutrophils # Man Lymphocytes # (Manual) Monocytes # (Manual) Eosinophils # (Manual) Nucleated RBC % Basophils # (Manual) APTT Heparin Anti-Xa Level ABG pH 7.453 H POC ABG pO2 76.6 L ABG pO2 ABG HCO3 ABG O2 Saturation ABG Base Excess POC ABG pCO2 ABG Hemoglobin 10.3 L ABG Oxyhemoglobin ABG Glucose 99 H Oxyhemoglobin Sodium Potassium Chloride Carbon Dioxide BUN Creatinine Glucose POC Glucose 128 H 121 H Lactic Acid Calcium Phosphorus Magnesium AST ALT Lactate Dehydrogenase CK-MB (CK-2) C-Reactive Protein NT-Pro-B Natriuret Pep Total Protein Albumin Arterial Blood Glucose 99 H Urine WBC (Auto) 01/12/20 01/13/20 01/13/20 18:24 12:01 17:46 WBC RBC Hgb Hct MCHC RDW MCV MCH Lymph % (Auto) [place] % (Auto) [place] # Eos # Lymph # (Auto) [place] # (Auto) Eos # (Auto) Seg Neutrophils % Seg Neuts % (Manual) Baso # (Auto) Lymphocytes % (Manual) Monocytes % (Manual) Eosinophils % (Manual) Basophils % (Manual) Seg Neutrophils # Seg Neutrophils # Man Lymphocytes # (Manual) Monocytes # (Manual) Eosinophils # (Manual) Nucleated RBC % Basophils # (Manual) APTT Heparin Anti-Xa Level ABG pH POC ABG pO2 ABG pO2 ABG HCO3 ABG O2 Saturation ABG Base Excess POC ABG pCO2 ABG Hemoglobin ABG Oxyhemoglobin ABG Glucose Oxyhemoglobin Sodium Potassium Chloride Carbon Dioxide BUN Creatinine Glucose POC Glucose 119 H 107 H 124 H Lactic Acid Calcium Phosphorus Magnesium AST ALT Lactate Dehydrogenase CK-MB (CK-2) C-Reactive Protein NT-Pro-B Natriuret Pep Total Protein Albumin Arterial Blood Glucose Urine WBC (Auto) 01/13/20 01/14/20 01/14/20 20:40 00:10 05:33 WBC RBC Hgb Hct MCHC RDW MCV MCH Lymph % (Auto) [place] % (Auto) [place] # Eos # Lymph # (Auto) [place] # (Auto) Eos # (Auto) Seg Neutrophils % Seg Neuts % (Manual) Baso # (Auto) Lymphocytes % (Manual) Monocytes % (Manual) Eosinophils % (Manual) Basophils % (Manual) Seg Neutrophils # Seg Neutrophils # Man Lymphocytes # (Manual) Monocytes # (Manual) Eosinophils # (Manual) Nucleated RBC % Basophils # (Manual) APTT Heparin Anti-Xa Level ABG pH POC ABG pO2 ABG pO2 65.3 L ABG HCO3 31.8 H ABG O2 Saturation 93.5 L ABG Base Excess 6.7 H POC ABG pCO2 ABG Hemoglobin 13.3 L ABG Oxyhemoglobin ABG Glucose Oxyhemoglobin 90.9 L Sodium Potassium Chloride Carbon Dioxide BUN Creatinine Glucose POC Glucose 111 H 111 H Lactic Acid Calcium Phosphorus Magnesium AST ALT Lactate Dehydrogenase CK-MB (CK-2) C-Reactive Protein NT-Pro-B Natriuret Pep Total Protein Albumin Arterial Blood Glucose Urine WBC (Auto) 01/14/20 01/14/20 01/14/20 12:10 16:14 16:14 WBC RBC Hgb 10.6 L Hct 34.2 L MCHC 31 L RDW 18.3 H MCV 83 L MCH 26 L Lymph % (Auto) [place] % (Auto) 7.4 H [place] # Eos # Lymph # (Auto) [place] # (Auto) Eos # (Auto) Seg Neutrophils % 71.9 H Seg Neuts % (Manual) Baso # (Auto) Lymphocytes % (Manual) Monocytes % (Manual) Eosinophils % (Manual) Basophils % (Manual) Seg Neutrophils # Seg Neutrophils # Man Lymphocytes # (Manual) Monocytes # (Manual) Eosinophils # (Manual) Nucleated RBC % Basophils # (Manual) APTT Heparin Anti-Xa Level ABG pH POC ABG pO2 ABG pO2 ABG HCO3 ABG O2 Saturation ABG Base Excess POC ABG pCO2 ABG Hemoglobin ABG Oxyhemoglobin ABG Glucose Oxyhemoglobin Sodium Potassium Chloride Carbon Dioxide 31 H BUN Creatinine 0.6 L Glucose 131 H POC Glucose 139 H Lactic Acid Calcium Phosphorus Magnesium AST ALT Lactate Dehydrogenase CK-MB (CK-2) C-Reactive Protein NT-Pro-B Natriuret Pep Total Protein Albumin Arterial Blood Glucose Urine WBC (Auto) 01/14/20 01/15/20 01/15/20 18:05 00:52 05:35 WBC RBC Hgb Hct MCHC RDW MCV MCH Lymph % (Auto) [place] % (Auto) [place] # Eos # Lymph # (Auto) [place] # (Auto) Eos # (Auto) Seg Neutrophils % Seg Neuts % (Manual) Baso # (Auto) Lymphocytes % (Manual) Monocytes % (Manual) Eosinophils % (Manual) Basophils % (Manual) Seg Neutrophils # Seg Neutrophils # Man Lymphocytes # (Manual) Monocytes # (Manual) Eosinophils # (Manual) Nucleated RBC % Basophils # (Manual) APTT Heparin Anti-Xa Level ABG pH POC ABG pO2 ABG pO2 ABG HCO3 ABG O2 Saturation ABG Base Excess POC ABG pCO2 ABG Hemoglobin ABG Oxyhemoglobin ABG Glucose Oxyhemoglobin Sodium Potassium Chloride Carbon Dioxide BUN Creatinine Glucose POC Glucose 147 H 140 H 159 H Lactic Acid Calcium Phosphorus Magnesium AST ALT Lactate Dehydrogenase CK-MB (CK-2) C-Reactive Protein NT-Pro-B Natriuret Pep Total Protein Albumin Arterial Blood Glucose Urine WBC (Auto) 01/15/20 01/15/20 01/16/20 12:52 17:43 00:32 WBC RBC Hgb Hct MCHC RDW MCV MCH Lymph % (Auto) [place] % (Auto) [place] # Eos # Lymph # (Auto) [place] # (Auto) Eos # (Auto) Seg Neutrophils % Seg Neuts % (Manual) Baso # (Auto) Lymphocytes % (Manual) Monocytes % (Manual) Eosinophils % (Manual) Basophils % (Manual) Seg Neutrophils # Seg Neutrophils # Man Lymphocytes # (Manual) Monocytes # (Manual) Eosinophils # (Manual) Nucleated RBC % Basophils # (Manual) APTT Heparin Anti-Xa Level ABG pH POC ABG pO2 ABG pO2 ABG HCO3 ABG O2 Saturation ABG Base Excess POC ABG pCO2 ABG Hemoglobin ABG Oxyhemoglobin ABG Glucose Oxyhemoglobin Sodium Potassium Chloride Carbon Dioxide BUN Creatinine Glucose POC Glucose 164 H 167 H 153 H Lactic Acid Calcium Phosphorus Magnesium AST ALT Lactate Dehydrogenase CK-MB (CK-2) C-Reactive Protein NT-Pro-B Natriuret Pep Total Protein Albumin Arterial Blood Glucose Urine WBC (Auto) 01/16/20 01/16/20 01/17/20 05:46 11:48 06:38 WBC RBC Hgb Hct MCHC RDW MCV MCH Lymph % (Auto) [place] % (Auto) [place] # Eos # Lymph # (Auto) [place] # (Auto) Eos # (Auto) Seg Neutrophils % Seg Neuts % (Manual) Baso # (Auto) Lymphocytes % (Manual) Monocytes % (Manual) Eosinophils % (Manual) Basophils % (Manual) Seg Neutrophils # Seg Neutrophils # Man Lymphocytes # (Manual) Monocytes # (Manual) Eosinophils # (Manual) Nucleated RBC % Basophils # (Manual) APTT Heparin Anti-Xa Level ABG pH POC ABG pO2 ABG pO2 ABG HCO3 ABG O2 Saturation ABG Base Excess POC ABG pCO2 ABG Hemoglobin ABG Oxyhemoglobin ABG Glucose Oxyhemoglobin Sodium Potassium Chloride Carbon Dioxide BUN Creatinine Glucose POC Glucose 163 H 155 H 116 H Lactic Acid Calcium Phosphorus Magnesium AST ALT Lactate Dehydrogenase CK-MB (CK-2) C-Reactive Protein NT-Pro-B Natriuret Pep Total Protein Albumin Arterial Blood Glucose Urine WBC (Auto) 01/17/20 01/17/20 01/18/20 11:36 17:43 00:12 WBC RBC Hgb Hct MCHC RDW MCV MCH Lymph % (Auto) [place] % (Auto) [place] # Eos # Lymph # (Auto) [place] # (Auto) Eos # (Auto) Seg Neutrophils % Seg Neuts % (Manual) Baso # (Auto) Lymphocytes % (Manual) Monocytes % (Manual) Eosinophils % (Manual) Basophils % (Manual) Seg Neutrophils # Seg Neutrophils # Man Lymphocytes # (Manual) Monocytes # (Manual) Eosinophils # (Manual) Nucleated RBC % Basophils # (Manual) APTT Heparin Anti-Xa Level ABG pH POC ABG pO2 ABG pO2 ABG HCO3 ABG O2 Saturation ABG Base Excess POC ABG pCO2 ABG Hemoglobin ABG Oxyhemoglobin ABG Glucose Oxyhemoglobin Sodium Potassium Chloride Carbon Dioxide BUN Creatinine Glucose POC Glucose 110 H 134 H 108 H Lactic Acid Calcium Phosphorus Magnesium AST ALT Lactate Dehydrogenase CK-MB (CK-2) C-Reactive Protein NT-Pro-B Natriuret Pep Total Protein Albumin Arterial Blood Glucose Urine WBC (Auto) 01/18/20 01/18/20 01/18/20 05:37 06:46 06:46 WBC RBC Hgb 10.1 L Hct 32.2 L MCHC 31 L RDW 18.1 H MCV 81 L MCH 25 L Lymph % (Auto) [place] % (Auto) [place] # Eos # Lymph # (Auto) [place] # (Auto) Eos # (Auto) Seg Neutrophils % 71.9 H Seg Neuts % (Manual) Baso # (Auto) Lymphocytes % (Manual) Monocytes % (Manual) Eosinophils % (Manual) Basophils % (Manual) Seg Neutrophils # Seg Neutrophils # Man Lymphocytes # (Manual) Monocytes # (Manual) Eosinophils # (Manual) Nucleated RBC % Basophils # (Manual) APTT Heparin Anti-Xa Level ABG pH POC ABG pO2 ABG pO2 ABG HCO3 ABG O2 Saturation ABG Base Excess POC ABG pCO2 ABG Hemoglobin ABG Oxyhemoglobin ABG Glucose Oxyhemoglobin Sodium Potassium Chloride Carbon Dioxide BUN Creatinine 0.7 L Glucose 155 H POC Glucose 168 H Lactic Acid Calcium Phosphorus Magnesium AST ALT Lactate Dehydrogenase CK-MB (CK-2) C-Reactive Protein NT-Pro-B Natriuret Pep Total Protein Albumin Arterial Blood Glucose Urine WBC (Auto) 01/18/20 12:05 WBC RBC Hgb Hct MCHC RDW MCV MCH Lymph % (Auto) [place] % (Auto) [place] # Eos # Lymph # (Auto) [place] # (Auto) Eos # (Auto) Seg Neutrophils % Seg Neuts % (Manual) Baso # (Auto) Lymphocytes % (Manual) Monocytes % (Manual) Eosinophils % (Manual) Basophils % (Manual) Seg Neutrophils # Seg Neutrophils # Man Lymphocytes # (Manual) Monocytes # (Manual) Eosinophils # (Manual) Nucleated RBC % Basophils # (Manual) APTT Heparin Anti-Xa Level ABG pH POC ABG pO2 ABG pO2 ABG HCO3 ABG O2 Saturation ABG Base Excess POC ABG pCO2 ABG Hemoglobin ABG Oxyhemoglobin ABG Glucose Oxyhemoglobin Sodium Potassium Chloride Carbon Dioxide BUN Creatinine Glucose POC Glucose 128 H Lactic Acid Calcium Phosphorus Magnesium AST ALT Lactate Dehydrogenase CK-MB (CK-2) C-Reactive Protein NT-Pro-B Natriuret Pep Total Protein Albumin Arterial Blood Glucose Urine WBC (Auto) Chest x-ray: image reviewed (Pulmonary edema pattern ? superimposed over interstitial lung disease) Allied health notes reviewed: nursing
[2020-01-18] MEDS: POLYETHYLENE GLYCOL 3350 17 GM POWDER PO SCH (21:44)
[2020-01-18] MEDS: TAMSULOSIN 0.4 MG CAP PO SCH (21:45)
[2020-01-19] MEDS: METOPROLOL TARTRATE 25 MG TAB PO SCH ×3 (00:51→19:53)
[2020-01-19] MEDS ORDERED: DOCUSATE SODIUM 100 MG/10 ML ORAL LIQD ONE (06:23)
[2020-01-19] MEDS ORDERED: GLYCOPYRROLATE 2 MG TAB PO ONE (06:23)
[2020-01-19] MEDS ORDERED: AMIODARONE 200 MG TAB ONE (06:23)
[2020-01-19] MEDS ORDERED: APIXABAN 5 MG TAB ONE (06:23)
[2020-01-19] MEDS ORDERED: FUROSEMIDE 40 MG/4 ML INJ ONE (06:23)
[2020-01-19] MEDS ORDERED: METOPROLOL TARTRATE 25 MG TAB ONE ×3 (06:23→17:52)
[2020-01-19] MEDS ORDERED: QUEtiapine 100 MG TAB ONE (06:23)
[2020-01-19] MEDS ORDERED: FAMOTIDINE 20 MG TAB ONE (06:23)
--- NOTE | 2020-01-19 18:13 | Progress Note ---
Assessment and Plan - Patient Problems (1) Paroxysmal atrial fibrillation Current Visit: Yes Status: Acute Plan to address problem: Continue conservative cardiac medical management as previously outlined. Subjective Date of service: 01/19/20 Principal diagnosis: Ac hypoxemic resp failure; Pneumonia; PUI COVID-19; CHF; COPD; HTN Interval history: No new cardiac complaints. 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 Objective Vital Signs Temp Pulse Pulse Resp BP Pulse Ox 01/19/20 16:00 101.1 F H 01/19/20 12:00 98.0 F 01/19/20 07:00 93 H 25 H 104/70 100 01/19/20 06:46 90 19 99/73 97 01/19/20 06:30 92 H 23 99/73 97 01/19/20 06:16 91 H 21 99/73 98 01/19/20 06:00 91 H 22 99/73 95 01/19/20 05:46 91 H 19 101/72 100 01/19/20 05:30 90 22 108/83 97 01/19/20 05:16 88 20 108/83 98 01/19/20 05:00 85 19 101/72 01/19/20 04:46 86 24 108/83 98 01/19/20 04:30 92 H 16 108/83 98 01/19/20 04:16 92 H 20 108/83 99 01/19/20 04:00 91 H 19 108/83 97 01/19/20 03:46 87 22 98/65 97 01/19/20 03:30 87 19 98/65 97 01/19/20 03:16 86 15 98/65 95 01/19/20 03:00 83 22 98/65 95 01/19/20 02:46 86 21 114/69 99 01/19/20 02:30 91 H 20 114/69 97 01/19/20 02:16 94 H 22 114/69 97 01/19/20 02:00 93 H 16 114/69 95 01/19/20 01:46 87 19 96/68 99 01/19/20 01:30 85 24 96/68 99 01/19/20 01:16 85 22 96/68 99 01/19/20 01:00 88 23 96/68 98 01/19/20 00:46 89 21 109/73 98 01/19/20 00:30 93 H 20 109/73 98 01/19/20 00:16 88 21 109/73 98 01/19/20 00:00 89 20 109/73 98 01/18/20 23:46 88 24 103/68 99 01/18/20 23:30 90 25 H 103/68 98 01/18/20 23:16 91 H 21 103/68 98 01/18/20 23:00 89 22 103/68 98 01/18/20 22:46 89 23 108/76 99 01/18/20 22:30 90 22 108/76 98 01/18/20 22:16 92 H 15 108/76 100 01/18/20 22:13 92 H 108/76 99 01/18/20 22:00 93 H 22 108/76 97 01/18/20 21:57 96 01/18/20 21:46 92 H 23 112/76 97 01/18/20 21:30 91 H 24 112/76 97 01/18/20 21:16 92 H 22 112/76 97 01/18/20 21:00 91 H 22 112/76 01/18/20 20:46 91 H 22 114/85 98 01/18/20 20:30 91 H 23 114/85 96 01/18/20 20:16 92 H 24 114/85 97 01/18/20 20:00 98.8 F 94 H 94 H 22 114/85 97 01/18/20 19:46 94 H 18 113/78 97 01/18/20 19:30 92 H 22 113/78 96 01/18/20 19:16 90 22 113/78 97 01/18/20 19:00 93 H 22 113/78 97 01/18/20 18:46 95 H 16 120/79 96 01/18/20 18:35 96 H 120/79 01/18/20 18:30 96 H 21 120/79 96 01/18/20 18:16 96 H 22 120/79 96 - Physical Examination General: Other (awake, s/p trach) HEENT: Positive: PERRL Neck: Positive: neck supple Cardiac: Positive: Reg Rate and Rhythm Lungs: Positive: Decreased Breath Sounds Neuro: Positive: Weakness, Other (Sedated, on the vent via trach) Abdomen: Positive: Soft Skin: Positive: Clear Extremities: Absent: edema - Allied health notes Allied health notes reviewed: nursing
--- NOTE | 2020-01-19 18:39 | Progress Note ---
Assessment and Plan Assessment and plan: COVID-19 test; 11/24/2019; negative 11/26/2019; negative 12/29/2019: Negative --Acute on chronic hypoxemic respiratory failure; Patient has tracheostomy , T-piece on vent Continue nebulizers and supportive care Wean as tolerated and extubate Tracheostomy care --Acute exacerbation of COPD; Nebulizers, patient completed steroids --Left lower lobe PE; Oxygen titrate O2 sats more than 90% Continue Eliquis --Acute right lower extremity DVT; Patient is on Eliquis --Bilateral multifocal pneumonia/community-acquired Completed antibiotics, significantly improved --Severe sepsis/bilateral pneumonia: Monitor off antibiotics --Paroxysmal atrial fibrillation; Rate controlled Continue amiodarone, Eliquis --Acute on chronic diastolic congestive heart failure Continue current failure medications EF 50 to 55% --H/o CAD [[facility] 12/2018 in-stent restenosis] Patient is stable on current cardiac medications --Hypertensive emergency; present on admission Reasonable blood pressures, continue current antihypertensives As needed medications --History of alcohol abuse/alcohol withdrawal; Was on CIWA protocol, now stable --Oropharyngeal dysphagia; status post PEG placement Continue PEG feeds per protocol --History of partial small bowel obstruction; Surgery evaluated the patient, resolved --Obesity; BMI 34.7 Patient needs weight reduction when medically stable --Severe protein calorie malnutrition/hypoalbuminemia Nutrition supplements, dietitian following, PEG feeds --DVT prophylaxis; Eliquis --Full CODE STATUS We will closely monitor the patient and adjust the management as needed Plan of care reviewed with the patient's nurse The high probability of a clinically significant, sudden or life threatening deterioration of the [Respiratory, cardiovascular & neurological] system(s) required my full and direct attention, intervention and personal management. The aggregate critical care time was [33] minutes without overlap. Time includes spent on [x] Data Review and interpretation [x] Patient assessment and monitoring of vital signs [x] Documentation [x] Medication orders and management 01/05; Pt stable. NGT output 650cc over 24 hours, bilious. No f/c, WBC within normal limits. cont NG suction and cont to hold TF 01/06: Abs series - mild improvement in small bowel distension in mid abdomen, normal gas/stool pattern in colon. NGT in duodenum. Continue to hold tube feeding, maintain NG tube with low intermittent suction. Patient's was updated by phone. Continue to provide supportive care and monitor clinically. 01/07: +BMs today and NGT/PEG output appears more gastric today. Plan to clamp NGT, if tolerates start TF from tomorrow. cont supportive care. 01/08; Gastric output decreased over last 24 hours. NGT has been clamped x 24 hours. plan to dc NGT and to start TTF via PEG - vital HF @10cc/hr 01/09: clinically stable, tolerating TF. monitor BMP, wean off from vent as tolerated clinically stable, on TF. wean off vent as tolerated 01/11: wean off from vent, cont to monitor, on TF 01/12: wean off from vent, cont to monitor, on TF. need placement - unfunded 01/13; remains on ventilatory support, unable to wean, DC planning possible LTAC, unfunded 01/14; patient of ventilatory support, T-piece tracheostomy on oxygen, LTAC placement per case management 01/16; tracheostomy, patient on full ventilatory support, wean off vent support as tolerated, pending LTAC placement, social financial issues 01/17; awaiting LTAC placement, insurance and financial issues 01/18; patient tracheostomy remains on ventilatory support History Interval history: Late entry; Socialthing was down. I have seen and examined the patient at the bedside in ICU this morning I have reviewed patient's chart, current medications and overnight events Patient with tracheostomy on ventilatory support Alert and awake, asking for water Vital signs noted Hospitalist Physical - Constitutional Vitals: Temp Pulse Resp BP Pulse Ox 101.1 F H 95 H 18 107/68 95 01/19/20 16:00 01/19/20 18:16 01/19/20 18:16 01/19/20 18:16 01/19/20 18:16 General appearance: Present: well-nourished, obese, other (Tracheostomy on vent) - EENT Eyes: Present: PERRL, EOM intact - Neck Neck: Present: supple, other (Tracheostomy) - Respiratory Respiratory effort: normal Respiratory: bilateral: diminished, rhonchi, negative: rales, wheezing - Cardiovascular Rhythm: regular Heart Sounds: Present: S1 & S2 - Extremities Extremities: no ischemia, No edema - Abdominal General gastrointestinal: soft, non-tender, non-distended, normal bowel sounds, other (PEG tube in place) - Integumentary Integumentary: Present: clear, warm - Psychiatric Psychiatric: other (Alert and awake) - Neurologic Neurologic: other (Intubated) HEART Score - HEART Score Troponin: Troponin T < 0.010 ng/mL (0.00-0.029) 11/24/19 02:53 Results - Labs CBC & Chem 7: 01/20/20 05:20 01/20/20 05:40 Labs: Laboratory Last Values WBC 9.7 K/mm3 (4.5-11.0) 01/18/20 06:46 RBC 3.97 M/mm3 (3.65-5.03) 01/18/20 06:46 Hgb 10.1 gm/dl (11.8-15.2) L 01/18/20 06:46 Hct 32.2 % (35.5-45.6) L 01/18/20 06:46 MCV 81 fl (84-94) L 01/18/20 06:46 MCH 25 pg (28-32) L 01/18/20 06:46 MCHC 31 % (32-34) L 01/18/20 06:46 RDW 18.1 % (13.2-15.2) H 01/18/20 06:46 Plt Count 369 K/mm3 (140-440) 01/18/20 06:46 Lymph % (Auto) 18.6 % (13.4-35.0) 01/18/20 06:46 [place] % (Auto) 6.8 % (0.0-7.3) 01/18/20 06:46 Eos % (Auto) 1.9 % (0.0-4.3) 01/18/20 06:46 Baso % (Auto) 0.8 % (0.0-1.8) 01/18/20 06:46 Lymph # (Auto) 1.8 K/mm3 (1.2-5.4) 01/18/20 06:46 [place] # (Auto) 0.7 K/mm3 (0.0-0.8) 01/18/20 06:46 Eos # (Auto) 0.2 K/mm3 (0.0-0.4) 01/18/20 06:46 Baso # (Auto) 0.1 K/mm3 (0.0-0.1) 01/18/20 06:46 Add Manual Diff Complete 12/19/19 11:32 Total Counted 100 12/19/19 11:32 Seg Neutrophils % 71.9 % (40.0-70.0) H 01/18/20 06:46 Seg Neuts % (Manual) 82.0 % (40.0-70.0) H 12/19/19 11:32 Band Neutrophils % 0 % 12/19/19 11:32 Lymphocytes % (Manual) 10.0 % (13.4-35.0) L 12/19/19 11:32 Reactive Lymphs % (Man) 0 % 12/19/19 11:32 Monocytes % (Manual) 6.0 % (0.0-7.3) 12/19/19 11:32 Eosinophils % (Manual) 2.0 % (0.0-4.3) 12/19/19 11:32 Basophils % (Manual) 0 % (0.0-1.8) 12/19/19 11:32 Metamyelocytes % 0 % 12/19/19 11:32 Myelocytes % 0 % 12/19/19 11:32 Promyelocytes % 0 % 12/19/19 11:32 Blast Cells % 0 % 12/19/19 11:32 Nucleated RBC % 1.0 % (0.0-0.9) H 12/19/19 11:32 Seg Neutrophils # 7.0 K/mm3 (1.8-7.7) 01/18/20 06:46 Seg Neutrophils # Man 12.0 K/mm3 (1.8-7.7) H 12/19/19 11:32 Band Neutrophils # 0.0 K/mm3 12/19/19 11:32 Lymphocytes # (Manual) 1.5 K/mm3 (1.2-5.4) 12/19/19 11:32 Abs React Lymphs (Man) 0.0 K/mm3 12/19/19 11:32 Monocytes # (Manual) 0.9 K/mm3 (0.0-0.8) H 12/19/19 11:32 Eosinophils # (Manual) 0.3 K/mm3 (0.0-0.4) 12/19/19 11:32 Basophils # (Manual) 0.0 K/mm3 (0.0-0.1) 12/19/19 11:32 Metamyelocytes # 0.0 K/mm3 12/19/19 11:32 Myelocytes # 0.0 K/mm3 12/19/19 11:32 Promyelocytes # 0.0 K/mm3 12/19/19 11:32 Blast Cells # 0.0 K/mm3 12/19/19 11:32 WBC Morphology Not Reportable 12/19/19 11:32 Hypersegmented Neuts Not Reportable 12/19/19 11:32 Hyposegmented Neuts Not Reportable 12/19/19 11:32 Hypogranular Neuts Not Reportable 12/19/19 11:32 Smudge Cells Not Reportable 12/19/19 11:32 Toxic Granulation Not Reportable 12/19/19 11:32 Toxic Vacuolation Not Reportable 12/19/19 11:32 Dohle Bodies Not Reportable 12/19/19 11:32 Pelger-Huet Anomaly Not Reportable 12/19/19 11:32 Hector Rods Not Reportable 12/19/19 11:32 Platelet Estimate Consistent w auto 12/19/19 11:32 Clumped Platelets Not Reportable 12/19/19 11:32 Plt Clumps, EDTA Not Reportable 12/19/19 11:32 Large Platelets Not Reportable 12/19/19 11:32 Giant Platelets Not Reportable 12/19/19 11:32 Platelet Satelliting Not Reportable 12/19/19 11:32 Plt Morphology Comment Not Reportable 12/19/19 11:32 RBC Morphology Not Reportable 12/19/19 11:32 Dimorphic RBCs Not Reportable 12/19/19 11:32 Polychromasia Not Reportable 12/19/19 11:32 Hypochromasia Few 12/19/19 11:32 Poikilocytosis Not Reportable 12/19/19 11:32 Anisocytosis 1+ 12/19/19 11:32 Microcytosis Few 12/19/19 11:32 Macrocytosis Few 12/19/19 11:32 Spherocytes Not Reportable 12/19/19 11:32 Pappenheimer Bodies Not Reportable 12/19/19 11:32 Sickle Cells Not Reportable 12/19/19 11:32 Target Cells Not Reportable 12/19/19 11:32 Tear Drop Cells Not Reportable 12/19/19 11:32 Ovalocytes Not Reportable 12/19/19 11:32 Helmet Cells Not Reportable 12/19/19 11:32 [place] Bodies Not Reportable 12/19/19 11:32 [place] Rings Not Reportable 12/19/19 11:32 Oc Cells Not Reportable 12/19/19 11:32 Bite Cells Not Reportable 12/19/19 11:32 Crenated Cell Not Reportable 12/19/19 11:32 Elliptocytes Not Reportable 12/19/19 11:32 Acanthocytes (Spur) Not Reportable 12/19/19 11:32 Rouleaux Not Reportable 12/19/19 11:32 Hemoglobin C Crystals Not Reportable 12/19/19 11:32 Schistocytes Not Reportable 12/19/19 11:32 Malaria parasites Not Reportable 12/19/19 11:32 Clifford Bodies Not Reportable 12/19/19 11:32 Hem Pathologist Commnt No 12/19/19 11:32 PT 13.8 Sec. (12.2-14.9) 12/21/19 10:13 INR 1.05 (0.87-1.13) 12/21/19 10:13 APTT 23.9 Sec. (24.2-36.6) L 12/21/19 10:13 Heparin Anti-Xa Level 0.16 U.I./ml (0.3-0.7) L 01/04/20 04:26 ABG pH 7.449 pH Units (7.350-7.450) 01/13/20 20:40 POC ABG pCO2 45.6 mmHg (32.0-48.0) 01/12/20 13:58 ABG pCO2 46.9 mm Hg 01/13/20 20:40 POC ABG pO2 76.6 mmHg (83-108) L 01/12/20 13:58 ABG pO2 65.3 mm Hg (80.0-90.0) L 01/13/20 20:40 POC ABG HCO3 31.2 01/12/20 13:58 ABG HCO3 31.8 mmol/L (20.0-26.0) H 01/13/20 20:40 ABG O2 Saturation 93.5 % (95.0-99.0) L 01/13/20 20:40 ABG O2 Content 17.0 (0.0-44) 01/13/20 20:40 POC ABG Base Excess 6.5 01/12/20 13:58 ABG Base Excess 6.7 mmol/L (-2.0-3.0) H 01/13/20 20:40 ABG Hemoglobin 13.3 gm/dl (14.0-18.0) L 01/13/20 20:40 ABG Oxyhemoglobin 84 (94-98) L 12/22/19 03:22 ABG Carboxyhemoglobin 2.2 % (0.0-5.0) 01/13/20 20:40 ABG Methemoglobin 0.6 % (0.0-1.5) 01/13/20 20:40 ABG Sodium 136.8 mmol/L (136.0-145.0) 01/12/20 13:58 ABG Potassium 3.7 mmol/L (3.40-4.50) 01/12/20 13:58 ABG Chloride 103.0 mmol/L (98-107) 01/12/20 13:58 ABG Glucose 99 mg/dL (65-95) H 01/12/20 13:58 Oxyhemoglobin 90.9 % (95.0-99.0) L 01/13/20 20:40 Carboxyhemoglobin 0.7 (0.5-1.5) 12/22/19 03:22 FiO2 35 % 01/13/20 20:40 Sodium 138 mmol/L (137-145) 01/18/20 06:46 Potassium 4.7 mmol/L (3.6-5.0) D 01/18/20 06:46 Chloride 98.8 mmol/L (98-107) 01/18/20 06:46 Carbon Dioxide 30 mmol/L (22-30) 01/18/20 06:46 Anion Gap 14 mmol/L 01/18/20 06:46 BUN 18 mg/dL (9-20) 01/18/20 06:46 Creatinine 0.7 mg/dL (0.8-1.3) L 01/18/20 06:46 Estimated GFR > 60 ml/min 01/18/20 06:46 BUN/Creatinine Ratio 26 % 01/18/20 06:46 Glucose 155 mg/dL (75-100) H 01/18/20 06:46 POC Glucose 171 mg/dL (70-105) H 01/19/20 12:33 Lactic Acid 2.50 mmol/L (0.7-2.0) H* 11/24/19 10:37 Magnesium 2.60 mg/dL (1.7-2.3) H 12/07/19 12:41 Calcium 9.5 mg/dL (8.4-10.2) 01/18/20 06:46 Ferritin 84.4 ng/mL (30.0-300.0) 11/24/19 04:53 Direct Bilirubin < 0.2 mg/dL (0-0.2) 12/08/19 03:55 Indirect Bilirubin 0.2 mg/dL 12/08/19 03:55 Phosphorus 3.40 mg/dL (2.5-4.5) 01/12/20 12:01 Total Bilirubin 0.50 mg/dL (0.1-1.2) 01/12/20 00:23 Total Creatine Kinase 141 units/L (55-170) 11/24/19 02:53 CK-MB (CK-2) 4.3 ng/mL (0.0-4.0) H 11/24/19 02:53 AST 16 units/L (5-40) 01/12/20 00:23 ALT 22 units/L (7-56) 01/12/20 00:23 CK-MB (CK-2) Rel Index 3.0 (0-4) 11/24/19 02:53 Alkaline Phosphatase 59 units/L (35-129) 01/12/20 00:23 Troponin T < 0.010 ng/mL (0.00-0.029) 11/24/19 02:53 C-Reactive Protein 8.50 mg/dL (0.00-1.30) H 12/01/19 12:16 Lactate Dehydrogenase 228 units/L (91-180) H 12/19/19 04:45 NT-Pro-B Natriuret Pep 3866 pg/mL (0-900) H 01/01/20 10:40 Total Protein 6.3 g/dL (6.3-8.2) 01/12/20 00:23 Albumin 2.6 g/dL (3.9-5) L 01/12/20 00:23 Albumin/Globulin Ratio 0.7 % 01/12/20 00:23 Procalcitonin 0.76 ng/mL (<0.15) 01/01/20 10:40 Arterial Blood Glucose 99 mg/dL (65-95) H 01/12/20 13:58 Arterial Blood Ionized Calcium 4.8 mg/dL (4.6-5.3) 01/12/20 13:58 Urine Color [place] (Yellow) 12/31/19 18:04 Urine Turbidity Clear (Clear) 12/31/19 18:04 Urine pH 5.0 (5.0-7.0) 12/31/19 18:04 Ur Specific [place] 1.023 (1.003-1.030) 12/31/19 18:04 Urine Protein <15 mg/dl mg/dL (Negative) 12/31/19 18:04 Urine Glucose (UA) Neg mg/dL (Negative) 12/31/19 18:04 Urine Ketones Neg mg/dL (Negative) 12/31/19 18:04 Urine Blood Neg (Negative) 12/31/19 18:04 Urine Bacteria (Auto) 1+ /HPF (Negative) 12/03/19 06:03 Urine Nitrite Neg (Negative) 12/31/19 18:04 Urine Bilirubin Neg (Negative) 12/31/19 18:04 Urine Urobilinogen 4.0 mg/dL (<2.0) 12/31/19 18:04 Ur Leukocyte Esterase Neg (Negative) 12/31/19 18:04 Urine WBC (Auto) 2.0 /HPF (0.0-6.0) 12/31/19 18:04 Urine RBC (Auto) 3.0 /HPF (0.0-6.0) 12/31/19 18:04 U Epithel Cells (Auto) 2.0 /HPF (0-13.0) 12/31/19 18:04 Urine Mucus 1+ /HPF 12/31/19 18:04 Vancomycin Trough 14.2 ug/mL (5.0-20.0) 12/13/19 15:01 Coronavirus (PCR) Negative (Negative) 12/29/19 10:07 - Diagnostic Impressions Diagnostic Impressions: Echocardiogram 11/29/19 07:37 Transthoracic Echocardiogram Indication: CHF BP: 116/72 HR: 33 Conclusions *The study is technically limited due to poor acoustic windows. *Global left ventricular systolic function is normal. *The estimated ejection fraction is 50-55%. *Mild concentric left ventricular hypertrophy is observed. *There is trace of mitral regurgitation. *There is mild tricuspid regurgitation. Findings Procedure Info: The study quality is poor. The study is technically limited due to poor acoustic windows. The study is technically limited due to patient body habitus. Left Ventricle: The left ventricular chamber size is normal. Mild concentric left ventricular hypertrophy is observed. Global left ventricular systolic function is normal. The estimated ejection fraction is 50-55%. Left Atrium: The left atrial chamber size is normal. Right Ventricle: The right ventricular cavity size is normal. Right Atrium: The right atrial cavity size is normal. Aortic Valve: The aortic valve leaflets are moderately thickened. There is trace of aortic regurgitation. There is no evidence of aortic stenosis. Mitral Valve: The mitral valve leaflets are mildly thickened. There is trace of mitral regurgitation. There is no evidence of mitral stenosis. Tricuspid Valve: There is mild tricuspid regurgitation. No pulmonary hypertension is noted. Pulmonic Valve: There is trace pulmonic regurgitation. Pericardium: There is no pericardial effusion. Aorta: There is no dilatation of the aortic root. Venous: The inferior vena cava appears normal in size. Contrast: Definity was used to optimize study. Intravenous contrast was used to enhance endocardial border definition. Measurements Chambers 2D Name Value Normal Range Ao root diameter (2D) 3.4 cm (2 - 3.7) Aortic Valve Name Value Normal Range AV Vmax 0.98 m/sec - AV VTI 16.76 cm - AV peak gradient 3.83 mmHg - AV mean gradient 2.57 mmHg - LVOT diameter 3.11 cm - LVOT Vmax 0.68 m/sec - LVOT VTI 11.52 cm - LVOT peak gradient 1.84 mmHg - LVOT mean gradient 1.27 mmHg - SV LVOT 87.31 ml - MALOU (continuity Vmax) 5.24 cm2 - MALOU (continuity VTI) 5.21 cm2 - Tricuspid Valve Name Value Normal Range IVC diameter 2.24 cm (1.2 - 2.3) Hoffman/IV: Voiding Method Condom Catheter IV Catheter Type [Right INT / Saline Lock Forearm] IV Catheter Type [Right Hand] INT / Saline Lock IV Catheter Type [Right Upper INT / Saline Lock arm] IV Catheter Type [Left Upper Mid-line arm] IV Catheter Type [Left Forearm INT / Saline Lock ] IV Catheter Type [Left Hand] INT / Saline Lock IV Catheter Type [Left Wrist] INT / Saline Lock IV Catheter Type [Right Peripheral IV Antecubital] Active Medications - Current Medications Current Medications: Generic Name Dose Route Start Last Admin Trade Name Freq PRN Reason Stop Dose Admin Acetaminophen 650 mg 12/31/19 11:43 01/14/20 08:27 Tylenol FEEDTUBE 650 mg Q6H PRN Administration Pain, Mild (1-3) Amiodarone HCl 200 mg 12/04/19 14:00 01/18/20 21:44 Cordarone PO 200 mg BID CAR Administration Lipase/Protease/Amylase 1 each 01/09/20 12:01 Pancreaztao Betancourt 10,500 Unit FEEDTUBE PRN PRN For Clogged Feeding Tube Apixaban 5 mg 01/11/20 22:00 01/18/20 21:44 Eliquis PO 5 mg Q12HR CAR Administration Protocol Bisacodyl 10 mg 01/06/20 13:00 01/18/20 10:20 Dulcolax HI 10 mg DAILY CAR Administration Docusate Sodium 100 mg 12/02/19 22:00 01/18/20 21:44 Colace FEEDTUBE 100 mg BID CAR Administration Famotidine 20 mg 01/12/20 10:00 01/18/20 21:44 Pepcid PO 20 mg BID CAR Administration Furosemide 40 mg 01/16/20 10:00 01/18/20 10:21 Lasix IV 40 mg QDAY CAR Administration Glycopyrrolate 2 mg 01/12/20 22:00 01/18/20 21:44 Glycopyrrolate PO 2 mg BID CAR Administration Haloperidol Lactate 5 mg 12/25/19 10:00 01/17/20 11:19 Haldol IV 5 mg Q6H PRN Administration Unrespon. to mult. doses BZD's Hydrophilic Ointment 1 applic 01/17/20 15:26 Vaseline Lip Therapy TP DIRECT PRN Dry Lips Lorazepam 2 mg 12/25/19 10:00 01/17/20 16:01 Ativan IV 2 mg Q6H PRN Administration AGITATION Magnesium Hydroxide 30 ml 01/14/20 13:35 Milk Of Magnesia PO QDAY PRN Constip unreliev by MOM/or NPO Metoprolol Tartrate 5 mg 01/11/20 08:00 01/14/20 02:32 Metoprolol IV 5 mg Q6H PRN Administration SEE INSTRUCTIONS Metoprolol Tartrate 25 mg 01/11/20 13:00 01/18/20 18:35 Metoprolol PO 25 mg Q6H CAR Administration Morphine Sulfate 2 mg 01/06/20 15:41 01/18/20 06:50 Morphine IV 2 mg Q4H PRN Administration Pain, Moderate (4-6) Ondansetron HCl 4 mg 01/05/20 14:37 01/05/20 16:18 Zofran IV 4 mg Q8H PRN Administration Nausea And Vomiting Polyethylene Glycol 17 gm 12/04/19 22:00 01/18/20 21:44 Miralax 3350 PO 17 gm QHS CAR Administration Quetiapine Fumarate 300 mg 01/13/20 22:00 01/18/20 21:44 Seroquel PO 300 mg BID CAR Administration Scopolamine 1 each 01/07/20 20:00 01/07/20 21:08 Transderm-Scop TD 1 each Q72HR CAR Administration Simple Syrup 15 ml 01/09/20 12:01 Simple Syrup FEEDTUBE PRN PRN Hypoglycemia Simple Syrup 30 ml 01/09/20 12:01 Simple Syrup FEEDTUBE PRN PRN Hypoglycemia Sodium Bicarbonate 325 mg 01/09/20 12:01 Sodium Bicarbonate FEEDTUBE PRN PRN For Clogged Feeding Tube Sodium Chloride 10 ml 11/24/19 10:00 01/18/20 21:46 Sodium Chloride Flush Syringe 10 Ml IV 10 ml BID CAR Administration Tamsulosin HCl 0.8 mg 12/20/19 22:00 01/18/20 21:45 Flomax PO 0.8 mg QHS CAR Administration Nutrition/Malnutrition Assess - Dietary Evaluation Nutrition/Malnutrition Findings: Nutrition Notes Start: 11/24/19 12:22 Freq: Status: Active Protocol: Document 01/15/20 12:20 AL (Rec: 01/15/20 12:51 AL [email or web address]) Co-Sign 01/15/20 12:20 MK Nutrition Notes Initial or Follow up Reassessment Current Diagnosis Coronary Artery Disease,Heart Failure,Respiratory Failure, Stroke,Hyperlipidemia Other Pertinent Diagnosis Partial SBO, pneu Current Diet Vital HP at 70 ml/hr (goal rate) Labs/Tests Reviewed Pertinent Medications Reviewed Height 6 ft 2 in Weight 120 kg [place] Body Weight (kg) 86.36 BMI 34.0 Weight Status Obese Subjective/Other Information TF tolerated at 70 ml/hr (goal rate). Pt extubated. Percent of energy/protein needs met: 100%/79% Burn Absent Trauma Absent GI Symptoms None Current % PO Negligible Minimum of two criteria No Fluid Accumulation Mild (non-severe) #1 Nutrition Diagnosis Inadequate oral intake Diagnosis Progress(for reassessment Continues documentation) Is patient on ventilator? No Is Patient Ambulatory and/or Out of Bed No REE-([place]-confined to bed) 2482.308 Kcal/Kg value to use for calculation 14 Approximate Energy Requirements Using 1680 kcal/Kg Calculation Used for Recommendations Kcal/kg Additional Notes Pro needs 82-103 g/day (.8-1. 0g/kg AdBW) Fluid needs 1ml/kcal Nutrition Intervention Change Diet Order: Change TF to Promote 1.0 at 70 ml/hr Nutrition Support: Promote 1.0 at 70ml/hr (goal rate) Flush 50 ml q4h or per MD Kcal 1,680 Protein (gm) 105 Fluid (mL) 1,409 Goal #1 Change TF Goal #2 TF (at goal rate) to meet 75% energy and Pro needs Anticipated Discharge Needs: unable to determine Follow-Up By: 01/19/20 Additional Comments TF tolerance.
[2020-01-19] MEDS ORDERED: D5W/0.45% NACL 1,000 ML IV SCH ×3 (20:00)
[2020-01-19] MEDS: MORPHINE 2 MG/1 ML INJ IV PRN (20:48)
[2020-01-19] MEDS: AMIODARONE 200 MG TAB PO SCH (21:02)
[2020-01-19] MEDS: DOCUSATE SODIUM 100 MG/10 ML ORAL LIQD FEEDTUBE SCH (21:02)
[2020-01-19] MEDS: FAMOTIDINE 20 MG TAB PO SCH (21:03)
[2020-01-19] MEDS: TAMSULOSIN 0.4 MG CAP PO SCH (21:03)
[2020-01-19] MEDS: GLYCOPYRROLATE 2 MG TAB PO SCH (21:03)
[2020-01-19] MEDS: QUEtiapine 100 MG TAB PO SCH (21:03)
[2020-01-19] MEDS: POLYETHYLENE GLYCOL 3350 17 GM POWDER PO SCH (21:03)
[2020-01-19] MEDS: APIXABAN 5 MG TAB PO SCH (21:04)
[2020-01-19] MEDS: NITROGLYCERIN 0.4 MG TAB SUBL SL PRN ×2 (21:22→21:57)
[2020-01-20] MEDS: METOPROLOL TARTRATE 25 MG TAB PO SCH ×5 (01:26→20:05)
[2020-01-20] MEDS: NITROGLYCERIN 0.4 MG TAB SUBL SL PRN (03:03)
--- NOTE | 2020-01-20 03:55 | XRay Report ---
ABDOMEN 1 VIEW INDICATION / CLINICAL INFORMATION: Vomiting. COMPARISON: 01/07/20. FINDINGS: TUBES / LINES: The nasogastric tube has been removed. There is a new gastrostomy tube overlying the d istal stomach. BOWEL GAS PATTERN: I see no evidence of bowel obstruction or mass effect. FREE AIR / EXTRALUMINAL GAS: None seen. ADDITIONAL FINDINGS: No significant additional findings. IMPRESSION: No acute abnormality. Signer Name: Chaz Finch MD Signed: 01/20/2020 3:50 AM Workstation Name: [id number]
--- NOTE | 2020-01-20 05:08 | Progress Note ---
Assessment and Plan Acute hypoxemic respiratory failure s/p trach on MVS Bilateral pneumonia, community acquired. Acute congestive heart failure exacerbation. History of cerebrovascular accident. Acute chronic obstructive pulmonary disease exacerbation. Hypertension and hypertensive urgency at presentation. History of arthritis. Oropharyngeal dysphagia Right Lext DVT Pulmonary embolism Trach care, airway clearance, secretion management SATs and SBTs daily. Replete potassium, keep at 4, magnesium at 2 and Phos at 2.5 Conitneu with Furosemide while montoring renal function, electrolyte profile and hemodynamics On Apixaban Monitor closely CXR, ABG as clinically indicated Continue accuchecks with glycemic control per SSI for target blood glucose goal of 140-180 mg/dL while critically ill; Avoid hypoglycemia Plan for cardiac cath in the next few days - continue to monitor renal function, hemodynamics and electrolyte profile - continue to wean oxygen for O2 sats > 90% - continue bronchodilators with pulmonary hygiene per RT - VAP bundle addressed (Aspiration precautions, HOB >40) - continue to wean per pulmonary driven protocols - continue prn analgesia per CPOT score - follow clinically re: fever curves / trend WBC - Avoid delirium (no benzodiazepines if they can be avoided) - continue stress ulcer prophylaxis with Famotidine BID - continue mobility protocols for pressure ulcer prophylaxis - continue fall precautions - Supportive transfusions as indicated to keep HgB>7g/dL - Continue to monitor neurologic function - Continue chronic home medications as clinically indicated - Continue all supportive care CONDITION: CRITICAL PROGNOSIS: GUARDED CODE STATUS: FULL CODE The high probability of a clinically significant, sudden or life threatening deterioration of the [Respiratory, cardiovascular, GI & neurological] system(s) required my full and direct attention, intervention and personal management. The aggregate critical care time was [32] minutes without overlap. Time includes spent on [x] Data Review and interpretation [x] Patient assessment and monitoring of vital signs [x] Documentation [x] Medication orders and management Subjective Date of service: 01/20/20 Principal diagnosis: Ac hypoxemic resp failure; Pneumonia; PUI COVID-19; CHF; COPD; HTN Interval history: Patient is seen today for: Acute hypoxemic respiratory failure; Adan. Pneumonia (CAP); PUI COVID-19 infection; AE-CHF; AE-COPD; H/O CVA; HTN; PE, DVT Seen and examined at bedside; 24 hour events reviewed; nursing and respiratory care staff consulted; no adverse overnight events reported to me; resting peacefully in bed; s/p trach on full support, awake and alert with some episodes of agitation., tolerating tube feedings. On Seroquel, received Lasix yesterday with an output of 1250 ml. On Vent AC-VC 12/450/+6/30% No fevers, anticoagulated on Apixaba. . Objective Vital Signs - 12hr 01/19/20 01/19/20 01/19/20 17:16 17:30 17:46 Temperature Pulse Rate 95 H 94 H 92 H Pulse Rate [ From Monitor] Respiratory 21 19 22 Rate Blood Pressure 114/78 114/78 114/78 O2 Sat by Pulse 98 98 97 Oximetry 01/19/20 01/19/20 01/19/20 18:00 18:16 18:30 Temperature Pulse Rate 93 H 95 H 96 H Pulse Rate [ From Monitor] Respiratory 20 18 23 Rate Blood Pressure 107/68 107/68 107/68 O2 Sat by Pulse 95 95 Oximetry 01/19/20 01/19/20 01/19/20 18:46 19:00 19:16 Temperature Pulse Rate 93 H 91 H 91 H Pulse Rate [ From Monitor] Respiratory 28 H 23 18 Rate Blood Pressure 107/68 104/72 104/72 O2 Sat by Pulse 95 96 96 Oximetry 01/19/20 01/19/20 01/19/20 19:29 19:30 19:46 Temperature Pulse Rate 96 H 91 H 92 H Pulse Rate [ From Monitor] Respiratory 14 22 Rate Blood Pressure 112/69 104/72 104/72 O2 Sat by Pulse 97 98 96 Oximetry 01/19/20 01/19/20 01/19/20 20:00 20:16 20:30 Temperature 99.4 F Pulse Rate 95 H 93 H 94 H Pulse Rate [ 95 H From Monitor] Respiratory 21 17 17 Rate Blood Pressure 113/80 113/80 113/80 O2 Sat by Pulse 98 96 96 Oximetry 01/19/20 01/19/20 01/19/20 20:46 21:00 21:16 Temperature Pulse Rate 94 H 94 H 94 H Pulse Rate [ From Monitor] Respiratory 18 22 21 Rate Blood Pressure 113/80 107/74 107/74 O2 Sat by Pulse 95 100 96 Oximetry 01/19/20 01/19/20 01/19/20 21:22 21:30 21:31 Temperature Pulse Rate 94 H 94 H 94 H Pulse Rate [ From Monitor] Respiratory 14 Rate Blood Pressure 107/74 107/74 107/74 O2 Sat by Pulse 94 95 Oximetry 01/19/20 01/19/20 01/19/20 21:33 21:46 21:57 Temperature Pulse Rate 83 81 Pulse Rate [ From Monitor] Respiratory 19 Rate Blood Pressure 107/74 107/74 O2 Sat by Pulse 94 91 Oximetry 01/19/20 01/19/20 01/19/20 22:00 22:16 22:30 Temperature Pulse Rate 81 83 84 Pulse Rate [ From Monitor] Respiratory 16 15 14 Rate Blood Pressure 96/58 107/74 107/74 O2 Sat by Pulse 93 95 Oximetry 01/19/20 01/19/20 01/19/20 22:46 23:00 23:16 Temperature Pulse Rate 85 85 86 Pulse Rate [ From Monitor] Respiratory 14 17 14 Rate Blood Pressure 107/74 95/59 95/59 O2 Sat by Pulse 96 95 95 Oximetry 01/19/20 01/19/20 01/19/20 23:30 23:34 23:46 Temperature Pulse Rate 85 84 84 Pulse Rate [ From Monitor] Respiratory 15 21 20 Rate Blood Pressure 95/59 95/59 95/59 O2 Sat by Pulse 95 95 95 Oximetry 01/20/20 01/20/20 01/20/20 00:00 00:16 00:28 Temperature 99.8 F H Pulse Rate 86 85 85 Pulse Rate [ 86 From Monitor] Respiratory 20 20 Rate Blood Pressure 100/64 100/64 100/64 O2 Sat by Pulse 95 95 95 Oximetry 01/20/20 01/20/20 01/20/20 00:30 00:46 01:00 Temperature Pulse Rate 85 86 86 Pulse Rate [ From Monitor] Respiratory 22 21 20 Rate Blood Pressure 100/64 100/64 90/60 O2 Sat by Pulse 95 95 97 Oximetry 01/20/20 01/20/20 01/20/20 01:16 01:26 03:03 Temperature Pulse Rate 86 87 101 H Pulse Rate [ From Monitor] Respiratory 20 Rate Blood Pressure 90/60 90/60 112/92 O2 Sat by Pulse 95 Oximetry 01/20/20 04:58 Temperature Pulse Rate 99 H Pulse Rate [ From Monitor] Respiratory Rate Blood Pressure 113/73 O2 Sat by Pulse 97 Oximetry Constitutional: no acute distress, other (elelelderly and obese male, normocephalic with mildly increased respiratory effort at rest on MVS) Eyes: non-icteric ENT: other (trach to MVS, mooderate tracheal secretions) Neck: supple, no JVD Effort: mildly labored Ascultation: Bilateral: clear, diminished breath sounds, rhonchi, other (+ secretions) Percussion: Bilateral: not dull Cardiovascular: irregular rhythm, other (S1,S2) Gastrointestinal: normoactive bowel sounds, soft, non-tender, non-distended (protuberant), other (protuberant; PEG in place) Integumentary: normal Extremities: no cyanosis, pulses normal, no ischemia or petechiae, edema (bilateral upper ) Neurologic: non-focal exam (moves extremities), pupils equal and round, CN II- XII normal, motor strength normal and (moves all extremities) Psychiatric: anxious CBC and BMP: 01/20/20 14:55 01/20/20 05:40 ABG, PT/INR, D-dimer: ABG ABG pH 7.449 pH Units (7.350-7.450) 01/13/20 20:40 POC ABG pCO2 45.6 mmHg (32.0-48.0) 01/12/20 13:58 ABG pCO2 46.9 mm Hg 01/13/20 20:40 POC ABG pO2 76.6 mmHg (83-108) L 01/12/20 13:58 ABG pO2 65.3 mm Hg (80.0-90.0) L 01/13/20 20:40 POC ABG HCO3 31.2 01/12/20 13:58 ABG O2 Saturation 93.5 % (95.0-99.0) L 01/13/20 20:40 PT/INR, D-dimer PT 13.8 Sec. (12.2-14.9) 12/21/19 10:13 INR 1.05 (0.87-1.13) 12/21/19 10:13 Abnormal lab findings: Abnormal Labs 11/24/19 11/24/19 11/24/19 02:53 02:53 03:45 WBC 14.3 H RBC Hgb Hct MCHC RDW 17.2 H MCV MCH Lymph % (Auto) Coleman % (Auto) Coleman # Eos # Lymph # (Auto) Coleman # (Auto) Eos # (Auto) Seg Neutrophils % Seg Neuts % (Manual) Baso # (Auto) Lymphocytes % (Manual) Monocytes % (Manual) Eosinophils % (Manual) Basophils % (Manual) Seg Neutrophils # Seg Neutrophils # Man 8.3 H Lymphocytes # (Manual) Monocytes # (Manual) 0.9 H Eosinophils # (Manual) Nucleated RBC % Basophils # (Manual) APTT Heparin Anti-Xa Level ABG pH 7.313 L POC ABG pO2 ABG pO2 102.8 H ABG HCO3 ABG O2 Saturation ABG Base Excess -2.9 L POC ABG pCO2 ABG Hemoglobin ABG Oxyhemoglobin ABG Glucose Oxyhemoglobin 93.9 L Sodium Potassium Chloride Carbon Dioxide BUN Creatinine Glucose 195 H POC Glucose Lactic Acid Calcium Phosphorus Magnesium AST ALT Lactate Dehydrogenase CK-MB (CK-2) 4.3 H C-Reactive Protein NT-Pro-B Natriuret Pep 1181 H Total Protein Albumin Arterial Blood Glucose Urine WBC (Auto) 11/24/19 11/24/19 11/24/19 04:53 04:53 10:37 WBC RBC Hgb Hct MCHC RDW MCV MCH Lymph % (Auto) Coleman % (Auto) Coleman # Eos # Lymph # (Auto) Coleman # (Auto) Eos # (Auto) Seg Neutrophils % Seg Neuts % (Manual) Baso # (Auto) Lymphocytes % (Manual) Monocytes % (Manual) Eosinophils % (Manual) Basophils % (Manual) Seg Neutrophils # Seg Neutrophils # Man Lymphocytes # (Manual) Monocytes # (Manual) Eosinophils # (Manual) Nucleated RBC % Basophils # (Manual) APTT Heparin Anti-Xa Level ABG pH POC ABG pO2 ABG pO2 ABG HCO3 ABG O2 Saturation ABG Base Excess POC ABG pCO2 ABG Hemoglobin ABG Oxyhemoglobin ABG Glucose Oxyhemoglobin Sodium Potassium Chloride Carbon Dioxide BUN Creatinine Glucose 162 H POC Glucose Lactic Acid 2.40 H* 2.50 H* Calcium Phosphorus Magnesium AST ALT Lactate Dehydrogenase 240 H CK-MB (CK-2) C-Reactive Protein NT-Pro-B Natriuret Pep Total Protein Albumin Arterial Blood Glucose Urine WBC (Auto) 11/24/19 11/24/19 11/24/19 12:21 14:50 19:54 WBC RBC Hgb Hct MCHC RDW MCV MCH Lymph % (Auto) Coleman % (Auto) Coleman # Eos # Lymph # (Auto) Coleman # (Auto) Eos # (Auto) Seg Neutrophils % Seg Neuts % (Manual) Baso # (Auto) Lymphocytes % (Manual) Monocytes % (Manual) Eosinophils % (Manual) Basophils % (Manual) Seg Neutrophils # Seg Neutrophils # Man Lymphocytes # (Manual) Monocytes # (Manual) Eosinophils # (Manual) Nucleated RBC % Basophils # (Manual) APTT Heparin Anti-Xa Level ABG pH POC ABG pO2 ABG pO2 ABG HCO3 ABG O2 Saturation ABG Base Excess POC ABG pCO2 ABG Hemoglobin ABG Oxyhemoglobin ABG Glucose Oxyhemoglobin Sodium Potassium Chloride Carbon Dioxide BUN Creatinine Glucose POC Glucose 145 H 143 H 124 H Lactic Acid Calcium Phosphorus Magnesium AST ALT Lactate Dehydrogenase CK-MB (CK-2) C-Reactive Protein NT-Pro-B Natriuret Pep Total Protein Albumin Arterial Blood Glucose Urine WBC (Auto) 11/25/19 11/25/19 11/25/19 00:18 03:18 05:11 WBC 13.7 H RBC Hgb Hct MCHC RDW 17.1 H MCV MCH Lymph % (Auto) 10.8 L Coleman % (Auto) 8.7 H Coleman # 1.2 H Eos # Lymph # (Auto) Coleman # (Auto) Eos # (Auto) Seg Neutrophils % 80.2 H Seg Neuts % (Manual) Baso # (Auto) Lymphocytes % (Manual) Monocytes % (Manual) Eosinophils % (Manual) Basophils % (Manual) Seg Neutrophils # 11.0 H Seg Neutrophils # Man Lymphocytes # (Manual) Monocytes # (Manual) Eosinophils # (Manual) Nucleated RBC % Basophils # (Manual) APTT Heparin Anti-Xa Level ABG pH 7.333 L POC ABG pO2 ABG pO2 61.2 L ABG HCO3 ABG O2 Saturation 90.2 L ABG Base Excess POC ABG pCO2 ABG Hemoglobin 13.7 L ABG Oxyhemoglobin ABG Glucose Oxyhemoglobin 88.2 L Sodium Potassium Chloride Carbon Dioxide BUN Creatinine Glucose POC Glucose 109 H Lactic Acid Calcium Phosphorus Magnesium AST ALT Lactate Dehydrogenase CK-MB (CK-2) C-Reactive Protein NT-Pro-B Natriuret Pep Total Protein Albumin Arterial Blood Glucose Urine WBC (Auto) 11/25/19 11/25/19 11/26/19 05:11 11:40 03:12 WBC RBC Hgb Hct MCHC RDW MCV MCH Lymph % (Auto) Coleman % (Auto) Coleman # Eos # Lymph # (Auto) Coleman # (Auto) Eos # (Auto) Seg Neutrophils % Seg Neuts % (Manual) Baso # (Auto) Lymphocytes % (Manual) Monocytes % (Manual) Eosinophils % (Manual) Basophils % (Manual) Seg Neutrophils # Seg Neutrophils # Man Lymphocytes # (Manual) Monocytes # (Manual) Eosinophils # (Manual) Nucleated RBC % Basophils # (Manual) APTT Heparin Anti-Xa Level ABG pH POC ABG pO2 ABG pO2 155.1 H ABG HCO3 27.8 H ABG O2 Saturation ABG Base Excess POC ABG pCO2 ABG Hemoglobin 12.2 L ABG Oxyhemoglobin ABG Glucose Oxyhemoglobin Sodium Potassium Chloride Carbon Dioxide BUN 23 H Creatinine Glucose 110 H POC Glucose 108 H Lactic Acid Calcium Phosphorus Magnesium AST ALT Lactate Dehydrogenase CK-MB (CK-2) C-Reactive Protein NT-Pro-B Natriuret Pep Total Protein Albumin Arterial Blood Glucose Urine WBC (Auto) 11/26/19 11/26/19 11/26/19 06:17 10:43 10:43 WBC 11.4 H RBC Hgb Hct MCHC RDW 17.1 H MCV MCH Lymph % (Auto) Coleman % (Auto) Coleman # Eos # Lymph # (Auto) Coleman # (Auto) Eos # (Auto) Seg Neutrophils % Seg Neuts % (Manual) Baso # (Auto) Lymphocytes % (Manual) Monocytes % (Manual) Eosinophils % (Manual) Basophils % (Manual) Seg Neutrophils # Seg Neutrophils # Man Lymphocytes # (Manual) Monocytes # (Manual) Eosinophils # (Manual) Nucleated RBC % Basophils # (Manual) APTT Heparin Anti-Xa Level ABG pH POC ABG pO2 ABG pO2 ABG HCO3 ABG O2 Saturation ABG Base Excess POC ABG pCO2 ABG Hemoglobin ABG Oxyhemoglobin ABG Glucose Oxyhemoglobin Sodium Potassium Chloride Carbon Dioxide BUN 29 H Creatinine Glucose POC Glucose 107 H Lactic Acid Calcium Phosphorus Magnesium AST ALT Lactate Dehydrogenase CK-MB (CK-2) C-Reactive Protein NT-Pro-B Natriuret Pep Total Protein Albumin Arterial Blood Glucose Urine WBC (Auto) 11/26/19 11/27/19 11/27/19 17:11 01:53 04:11 WBC RBC Hgb Hct MCHC RDW MCV MCH Lymph % (Auto) Coleman % (Auto) Coleman # Eos # Lymph # (Auto) Coleman # (Auto) Eos # (Auto) Seg Neutrophils % Seg Neuts % (Manual) Baso # (Auto) Lymphocytes % (Manual) Monocytes % (Manual) Eosinophils % (Manual) Basophils % (Manual) Seg Neutrophils # Seg Neutrophils # Man Lymphocytes # (Manual) Monocytes # (Manual) Eosinophils # (Manual) Nucleated RBC % Basophils # (Manual) APTT Heparin Anti-Xa Level ABG pH POC ABG pO2 ABG pO2 ABG HCO3 29.2 H ABG O2 Saturation ABG Base Excess 3.4 H POC ABG pCO2 ABG Hemoglobin 13.3 L ABG Oxyhemoglobin ABG Glucose Oxyhemoglobin 94.5 L Sodium Potassium Chloride Carbon Dioxide BUN Creatinine Glucose POC Glucose 113 H 108 H Lactic Acid Calcium Phosphorus Magnesium AST ALT Lactate Dehydrogenase CK-MB (CK-2) C-Reactive Protein NT-Pro-B Natriuret Pep Total Protein Albumin Arterial Blood Glucose Urine WBC (Auto) 11/27/19 11/28/19 11/28/19 05:27 05:00 05:25 WBC RBC Hgb Hct MCHC RDW MCV MCH Lymph % (Auto) Coleman % (Auto) Coleman # Eos # Lymph # (Auto) Coleman # (Auto) Eos # (Auto) Seg Neutrophils % Seg Neuts % (Manual) Baso # (Auto) Lymphocytes % (Manual) Monocytes % (Manual) Eosinophils % (Manual) Basophils % (Manual) Seg Neutrophils # Seg Neutrophils # Man Lymphocytes # (Manual) Monocytes # (Manual) Eosinophils # (Manual) Nucleated RBC % Basophils # (Manual) APTT Heparin Anti-Xa Level ABG pH POC ABG pO2 68.1 L ABG pO2 ABG HCO3 ABG O2 Saturation ABG Base Excess POC ABG pCO2 ABG Hemoglobin ABG Oxyhemoglobin 91.2 L ABG Glucose Oxyhemoglobin Sodium Potassium Chloride Carbon Dioxide BUN Creatinine Glucose POC Glucose 111 H 110 H Lactic Acid Calcium Phosphorus Magnesium AST ALT Lactate Dehydrogenase CK-MB (CK-2) C-Reactive Protein NT-Pro-B Natriuret Pep Total Protein Albumin Arterial Blood Glucose Urine WBC (Auto) 11/28/19 11/28/19 11/28/19 12:08 13:47 13:47 WBC 11.3 H RBC Hgb Hct MCHC RDW 16.1 H MCV MCH Lymph % (Auto) Coleman % (Auto) 9.9 H Coleman # 1.1 H Eos # Lymph # (Auto) Coleman # (Auto) Eos # (Auto) Seg Neutrophils % 71.4 H Seg Neuts % (Manual) Baso # (Auto) Lymphocytes % (Manual) Monocytes % (Manual) Eosinophils % (Manual) Basophils % (Manual) Seg Neutrophils # 8.1 H Seg Neutrophils # Man Lymphocytes # (Manual) Monocytes # (Manual) Eosinophils # (Manual) Nucleated RBC % Basophils # (Manual) APTT Heparin Anti-Xa Level ABG pH POC ABG pO2 ABG pO2 ABG HCO3 ABG O2 Saturation ABG Base Excess POC ABG pCO2 ABG Hemoglobin ABG Oxyhemoglobin ABG Glucose Oxyhemoglobin Sodium Potassium Chloride Carbon Dioxide BUN 23 H Creatinine Glucose 123 H POC Glucose 112 H Lactic Acid Calcium Phosphorus Magnesium AST ALT Lactate Dehydrogenase CK-MB (CK-2) C-Reactive Protein NT-Pro-B Natriuret Pep Total Protein Albumin 3.7 L Arterial Blood Glucose Urine WBC (Auto) 11/28/19 11/29/19 11/29/19 17:26 03:55 17:04 WBC RBC Hgb Hct MCHC RDW MCV MCH Lymph % (Auto) Coleman % (Auto) Coleman # Eos # Lymph # (Auto) Coleman # (Auto) Eos # (Auto) Seg Neutrophils % Seg Neuts % (Manual) Baso # (Auto) Lymphocytes % (Manual) Monocytes % (Manual) Eosinophils % (Manual) Basophils % (Manual) Seg Neutrophils # Seg Neutrophils # Man Lymphocytes # (Manual) Monocytes # (Manual) Eosinophils # (Manual) Nucleated RBC % Basophils # (Manual) APTT Heparin Anti-Xa Level ABG pH POC ABG pO2 ABG pO2 65.7 L ABG HCO3 28.3 H ABG O2 Saturation 93.9 L ABG Base Excess 3.6 H POC ABG pCO2 ABG Hemoglobin 13.3 L ABG Oxyhemoglobin ABG Glucose Oxyhemoglobin 91.5 L Sodium Potassium Chloride Carbon Dioxide BUN Creatinine Glucose POC Glucose 123 H 119 H Lactic Acid Calcium Phosphorus Magnesium AST ALT Lactate Dehydrogenase CK-MB (CK-2) C-Reactive Protein NT-Pro-B Natriuret Pep Total Protein Albumin Arterial Blood Glucose Urine WBC (Auto) 11/30/19 11/30/19 11/30/19 04:17 04:17 04:56 WBC 13.4 H RBC Hgb Hct MCHC RDW 15.6 H MCV MCH Lymph % (Auto) Coleman % (Auto) Coleman # Eos # Lymph # (Auto) Coleman # (Auto) Eos # (Auto) Seg Neutrophils % Seg Neuts % (Manual) Baso # (Auto) Lymphocytes % (Manual) Monocytes % (Manual) Eosinophils % (Manual) Basophils % (Manual) Seg Neutrophils # Seg Neutrophils # Man Lymphocytes # (Manual) Monocytes # (Manual) Eosinophils # (Manual) Nucleated RBC % Basophils # (Manual) APTT Heparin Anti-Xa Level ABG pH POC ABG pO2 ABG pO2 56.3 L ABG HCO3 29.3 H ABG O2 Saturation 91.5 L ABG Base Excess 4.7 H POC ABG pCO2 ABG Hemoglobin 12.1 L ABG Oxyhemoglobin ABG Glucose Oxyhemoglobin 89.2 L Sodium 147 H Potassium Chloride Carbon Dioxide BUN 30 H Creatinine Glucose 124 H POC Glucose Lactic Acid Calcium Phosphorus Magnesium AST ALT Lactate Dehydrogenase CK-MB (CK-2) C-Reactive Protein NT-Pro-B Natriuret Pep Total Protein Albumin 3.8 L Arterial Blood Glucose Urine WBC (Auto) 11/30/19 11/30/19 11/30/19 05:51 11:54 18:17 WBC RBC Hgb Hct MCHC RDW MCV MCH Lymph % (Auto) Coleman % (Auto) Coleman # Eos # Lymph # (Auto) Coleman # (Auto) Eos # (Auto) Seg Neutrophils % Seg Neuts % (Manual) Baso # (Auto) Lymphocytes % (Manual) Monocytes % (Manual) Eosinophils % (Manual) Basophils % (Manual) Seg Neutrophils # Seg Neutrophils # Man Lymphocytes # (Manual) Monocytes # (Manual) Eosinophils # (Manual) Nucleated RBC % Basophils # (Manual) APTT Heparin Anti-Xa Level ABG pH POC ABG pO2 ABG pO2 ABG HCO3 ABG O2 Saturation ABG Base Excess POC ABG pCO2 ABG Hemoglobin ABG Oxyhemoglobin ABG Glucose Oxyhemoglobin Sodium Potassium Chloride Carbon Dioxide BUN Creatinine Glucose POC Glucose 127 H 115 H 143 H Lactic Acid Calcium Phosphorus Magnesium AST ALT Lactate Dehydrogenase CK-MB (CK-2) C-Reactive Protein NT-Pro-B Natriuret Pep Total Protein Albumin Arterial Blood Glucose Urine WBC (Auto) 12/01/19 12/01/19 12/01/19 01:18 05:22 12:16 WBC RBC Hgb Hct MCHC RDW MCV MCH Lymph % (Auto) Coleman % (Auto) Coleman # Eos # Lymph # (Auto) Coleman # (Auto) Eos # (Auto) Seg Neutrophils % Seg Neuts % (Manual) Baso # (Auto) Lymphocytes % (Manual) Monocytes % (Manual) Eosinophils % (Manual) Basophils % (Manual) Seg Neutrophils # Seg Neutrophils # Man Lymphocytes # (Manual) Monocytes # (Manual) Eosinophils # (Manual) Nucleated RBC % Basophils # (Manual) APTT Heparin Anti-Xa Level ABG pH POC ABG pO2 ABG pO2 ABG HCO3 ABG O2 Saturation ABG Base Excess POC ABG pCO2 ABG Hemoglobin ABG Oxyhemoglobin ABG Glucose Oxyhemoglobin Sodium Potassium 3.5 L Chloride 107.8 H Carbon Dioxide BUN 37 H Creatinine Glucose 157 H POC Glucose 118 H 148 H Lactic Acid Calcium 8.2 L D Phosphorus Magnesium AST 48 H ALT 60 H Lactate Dehydrogenase 194 H CK-MB (CK-2) C-Reactive Protein 8.50 H NT-Pro-B Natriuret Pep Total Protein 5.5 L Albumin 2.8 L Arterial Blood Glucose Urine WBC (Auto) 12/01/19 12/02/19 12/02/19 18:04 00:05 05:16 WBC 11.4 H RBC Hgb Hct MCHC RDW 15.9 H MCV MCH Lymph % (Auto) Coleman % (Auto) 9.9 H Coleman # 1.1 H Eos # Lymph # (Auto) Coleman # (Auto) Eos # (Auto) Seg Neutrophils % 70.3 H Seg Neuts % (Manual) Baso # (Auto) Lymphocytes % (Manual) Monocytes % (Manual) Eosinophils % (Manual) Basophils % (Manual) Seg Neutrophils # 8.0 H Seg Neutrophils # Man Lymphocytes # (Manual) Monocytes # (Manual) Eosinophils # (Manual) Nucleated RBC % Basophils # (Manual) APTT Heparin Anti-Xa Level ABG pH POC ABG pO2 ABG pO2 ABG HCO3 ABG O2 Saturation ABG Base Excess POC ABG pCO2 ABG Hemoglobin ABG Oxyhemoglobin ABG Glucose Oxyhemoglobin Sodium Potassium Chloride Carbon Dioxide BUN Creatinine Glucose POC Glucose 143 H 107 H Lactic Acid Calcium Phosphorus Magnesium AST ALT Lactate Dehydrogenase CK-MB (CK-2) C-Reactive Protein NT-Pro-B Natriuret Pep Total Protein Albumin Arterial Blood Glucose Urine WBC (Auto) 12/02/19 12/02/19 12/02/19 05:16 06:03 11:52 WBC RBC Hgb Hct MCHC RDW MCV MCH Lymph % (Auto) Coleman % (Auto) Coleman # Eos # Lymph # (Auto) Coleman # (Auto) Eos # (Auto) Seg Neutrophils % Seg Neuts % (Manual) Baso # (Auto) Lymphocytes % (Manual) Monocytes % (Manual) Eosinophils % (Manual) Basophils % (Manual) Seg Neutrophils # Seg Neutrophils # Man Lymphocytes # (Manual) Monocytes # (Manual) Eosinophils # (Manual) Nucleated RBC % Basophils # (Manual) APTT Heparin Anti-Xa Level ABG pH POC ABG pO2 ABG pO2 ABG HCO3 ABG O2 Saturation ABG Base Excess POC ABG pCO2 ABG Hemoglobin ABG Oxyhemoglobin ABG Glucose Oxyhemoglobin Sodium 146 H Potassium Chloride Carbon Dioxide BUN 28 H Creatinine Glucose 123 H POC Glucose 110 H 152 H Lactic Acid Calcium Phosphorus Magnesium AST ALT Lactate Dehydrogenase CK-MB (CK-2) C-Reactive Protein NT-Pro-B Natriuret Pep Total Protein Albumin Arterial Blood Glucose Urine WBC (Auto) 12/02/19 12/02/19 12/02/19 12:58 17:58 23:36 WBC RBC Hgb Hct MCHC RDW MCV MCH Lymph % (Auto) Coleman % (Auto) Coleman # Eos # Lymph # (Auto) Coleman # (Auto) Eos # (Auto) Seg Neutrophils % Seg Neuts % (Manual) Baso # (Auto) Lymphocytes % (Manual) Monocytes % (Manual) Eosinophils % (Manual) Basophils % (Manual) Seg Neutrophils # Seg Neutrophils # Man Lymphocytes # (Manual) Monocytes # (Manual) Eosinophils # (Manual) Nucleated RBC % Basophils # (Manual) APTT Heparin Anti-Xa Level ABG pH POC ABG pO2 78.1 L ABG pO2 ABG HCO3 ABG O2 Saturation ABG Base Excess POC ABG pCO2 ABG Hemoglobin ABG Oxyhemoglobin ABG Glucose Oxyhemoglobin Sodium Potassium Chloride Carbon Dioxide BUN Creatinine Glucose POC Glucose 120 H 123 H Lactic Acid Calcium Phosphorus Magnesium AST ALT Lactate Dehydrogenase CK-MB (CK-2) C-Reactive Protein NT-Pro-B Natriuret Pep Total Protein Albumin Arterial Blood Glucose Urine WBC (Auto) 12/03/19 12/03/19 12/03/19 06:03 06:14 11:46 WBC RBC Hgb Hct MCHC RDW MCV MCH Lymph % (Auto) Coleman % (Auto) Coleman # Eos # Lymph # (Auto) Coleman # (Auto) Eos # (Auto) Seg Neutrophils % Seg Neuts % (Manual) Baso # (Auto) Lymphocytes % (Manual) Monocytes % (Manual) Eosinophils % (Manual) Basophils % (Manual) Seg Neutrophils # Seg Neutrophils # Man Lymphocytes # (Manual) Monocytes # (Manual) Eosinophils # (Manual) Nucleated RBC % Basophils # (Manual) APTT Heparin Anti-Xa Level ABG pH POC ABG pO2 ABG pO2 ABG HCO3 ABG O2 Saturation ABG Base Excess POC ABG pCO2 ABG Hemoglobin ABG Oxyhemoglobin ABG Glucose Oxyhemoglobin Sodium Potassium Chloride Carbon Dioxide BUN Creatinine Glucose POC Glucose 142 H 130 H Lactic Acid Calcium Phosphorus Magnesium AST ALT Lactate Dehydrogenase CK-MB (CK-2) C-Reactive Protein NT-Pro-B Natriuret Pep Total Protein Albumin Arterial Blood Glucose Urine WBC (Auto) 8.0 H 12/03/19 12/03/19 12/04/19 15:50 17:39 00:04 WBC RBC Hgb Hct MCHC RDW MCV MCH Lymph % (Auto) Coleman % (Auto) Coleman # Eos # Lymph # (Auto) Coleman # (Auto) Eos # (Auto) Seg Neutrophils % Seg Neuts % (Manual) Baso # (Auto) Lymphocytes % (Manual) Monocytes % (Manual) Eosinophils % (Manual) Basophils % (Manual) Seg Neutrophils # Seg Neutrophils # Man Lymphocytes # (Manual) Monocytes # (Manual) Eosinophils # (Manual) Nucleated RBC % Basophils # (Manual) APTT Heparin Anti-Xa Level ABG pH POC ABG pO2 ABG pO2 ABG HCO3 ABG O2 Saturation ABG Base Excess POC ABG pCO2 ABG Hemoglobin ABG Oxyhemoglobin ABG Glucose Oxyhemoglobin Sodium Potassium Chloride Carbon Dioxide BUN Creatinine Glucose POC Glucose 146 H 133 H Lactic Acid Calcium Phosphorus 2.40 L Magnesium AST ALT Lactate Dehydrogenase CK-MB (CK-2) C-Reactive Protein NT-Pro-B Natriuret Pep Total Protein Albumin Arterial Blood Glucose Urine WBC (Auto) 12/04/19 12/04/19 12/04/19 03:58 03:58 05:22 WBC 12.5 H RBC Hgb 11.2 L Hct 35.2 L MCHC RDW 16.0 H MCV MCH Lymph % (Auto) Coleman % (Auto) 9.6 H Coleman # 1.2 H Eos # 0.5 H Lymph # (Auto) Coleman # (Auto) Eos # (Auto) Seg Neutrophils % Seg Neuts % (Manual) Baso # (Auto) Lymphocytes % (Manual) Monocytes % (Manual) Eosinophils % (Manual) Basophils % (Manual) Seg Neutrophils # 8.6 H Seg Neutrophils # Man Lymphocytes # (Manual) Monocytes # (Manual) Eosinophils # (Manual) Nucleated RBC % Basophils # (Manual) APTT Heparin Anti-Xa Level ABG pH POC ABG pO2 ABG pO2 ABG HCO3 ABG O2 Saturation ABG Base Excess POC ABG pCO2 ABG Hemoglobin ABG Oxyhemoglobin ABG Glucose Oxyhemoglobin Sodium 146 H Potassium Chloride 108.6 H Carbon Dioxide BUN 30 H Creatinine 0.7 L Glucose 121 H POC Glucose 132 H Lactic Acid Calcium Phosphorus Magnesium AST ALT Lactate Dehydrogenase CK-MB (CK-2) C-Reactive Protein NT-Pro-B Natriuret Pep Total Protein Albumin Arterial Blood Glucose Urine WBC (Auto) 12/04/19 12/04/19 12/05/19 13:26 18:43 00:19 WBC RBC Hgb Hct MCHC RDW MCV MCH Lymph % (Auto) Coleman % (Auto) Coleman # Eos # Lymph # (Auto) Coleman # (Auto) Eos # (Auto) Seg Neutrophils % Seg Neuts % (Manual) Baso # (Auto) Lymphocytes % (Manual) Monocytes % (Manual) Eosinophils % (Manual) Basophils % (Manual) Seg Neutrophils # Seg Neutrophils # Man Lymphocytes # (Manual) Monocytes # (Manual) Eosinophils # (Manual) Nucleated RBC % Basophils # (Manual) APTT Heparin Anti-Xa Level ABG pH POC ABG pO2 ABG pO2 ABG HCO3 ABG O2 Saturation ABG Base Excess POC ABG pCO2 ABG Hemoglobin ABG Oxyhemoglobin ABG Glucose Oxyhemoglobin Sodium Potassium Chloride Carbon Dioxide BUN Creatinine Glucose POC Glucose 185 H 156 H 150 H Lactic Acid Calcium Phosphorus Magnesium AST ALT Lactate Dehydrogenase CK-MB (CK-2) C-Reactive Protein NT-Pro-B Natriuret Pep Total Protein Albumin Arterial Blood Glucose Urine WBC (Auto) 12/05/19 12/05/19 12/05/19 03:37 03:37 05:14 WBC 16.3 H RBC Hgb 11.4 L Hct MCHC RDW 15.6 H MCV MCH Lymph % (Auto) 9.9 L Coleman % (Auto) 9.7 H Coleman # 1.6 H Eos # Lymph # (Auto) Coleman # (Auto) Eos # (Auto) Seg Neutrophils % 78.0 H Seg Neuts % (Manual) Baso # (Auto) Lymphocytes % (Manual) Monocytes % (Manual) Eosinophils % (Manual) Basophils % (Manual) Seg Neutrophils # 12.7 H Seg Neutrophils # Man Lymphocytes # (Manual) Monocytes # (Manual) Eosinophils # (Manual) Nucleated RBC % Basophils # (Manual) APTT Heparin Anti-Xa Level ABG pH POC ABG pO2 ABG pO2 ABG HCO3 ABG O2 Saturation ABG Base Excess POC ABG pCO2 ABG Hemoglobin ABG Oxyhemoglobin ABG Glucose Oxyhemoglobin Sodium 146 H Potassium Chloride 107.2 H Carbon Dioxide BUN 27 H Creatinine 0.7 L Glucose 171 H POC Glucose 168 H Lactic Acid Calcium Phosphorus Magnesium AST ALT Lactate Dehydrogenase CK-MB (CK-2) C-Reactive Protein NT-Pro-B Natriuret Pep Total Protein Albumin Arterial Blood Glucose Urine WBC (Auto) 12/05/19 12/05/19 12/05/19 12:31 18:10 23:58 WBC RBC Hgb Hct MCHC RDW MCV MCH Lymph % (Auto) Coleman % (Auto) Coleman # Eos # Lymph # (Auto) Coleman # (Auto) Eos # (Auto) Seg Neutrophils % Seg Neuts % (Manual) Baso # (Auto) Lymphocytes % (Manual) Monocytes % (Manual) Eosinophils % (Manual) Basophils % (Manual) Seg Neutrophils # Seg Neutrophils # Man Lymphocytes # (Manual) Monocytes # (Manual) Eosinophils # (Manual) Nucleated RBC % Basophils # (Manual) APTT Heparin Anti-Xa Level ABG pH POC ABG pO2 ABG pO2 ABG HCO3 ABG O2 Saturation ABG Base Excess POC ABG pCO2 ABG Hemoglobin ABG Oxyhemoglobin ABG Glucose Oxyhemoglobin Sodium Potassium Chloride Carbon Dioxide BUN Creatinine Glucose POC Glucose 159 H 198 H 115 H Lactic Acid Calcium Phosphorus Magnesium AST ALT Lactate Dehydrogenase CK-MB (CK-2) C-Reactive Protein NT-Pro-B Natriuret Pep Total Protein Albumin Arterial Blood Glucose Urine WBC (Auto) 12/06/19 12/06/19 12/06/19 05:24 05:24 05:25 WBC 14.9 H RBC Hgb 10.8 L Hct 34.0 L MCHC RDW 15.6 H MCV MCH Lymph % (Auto) 10.7 L Coleman % (Auto) 8.3 H Coleman # 1.2 H Eos # Lymph # (Auto) Coleman # (Auto) Eos # (Auto) Seg Neutrophils % 78.7 H Seg Neuts % (Manual) Baso # (Auto) Lymphocytes % (Manual) Monocytes % (Manual) Eosinophils % (Manual) Basophils % (Manual) Seg Neutrophils # 11.7 H Seg Neutrophils # Man Lymphocytes # (Manual) Monocytes # (Manual) Eosinophils # (Manual) Nucleated RBC % Basophils # (Manual) APTT Heparin Anti-Xa Level ABG pH POC ABG pO2 ABG pO2 ABG HCO3 ABG O2 Saturation ABG Base Excess POC ABG pCO2 ABG Hemoglobin ABG Oxyhemoglobin ABG Glucose Oxyhemoglobin Sodium 148 H Potassium 5.1 H Chloride 107.6 H Carbon Dioxide BUN 27 H Creatinine 0.7 L Glucose 155 H POC Glucose 157 H Lactic Acid Calcium Phosphorus Magnesium AST ALT Lactate Dehydrogenase CK-MB (CK-2) C-Reactive Protein NT-Pro-B Natriuret Pep Total Protein Albumin Arterial Blood Glucose Urine WBC (Auto) 12/07/19 12/07/19 12/07/19 00:13 05:34 11:33 WBC RBC Hgb Hct MCHC RDW MCV MCH Lymph % (Auto) Coleman % (Auto) Coleman # Eos # Lymph # (Auto) Coleman # (Auto) Eos # (Auto) Seg Neutrophils % Seg Neuts % (Manual) Baso # (Auto) Lymphocytes % (Manual) Monocytes % (Manual) Eosinophils % (Manual) Basophils % (Manual) Seg Neutrophils # Seg Neutrophils # Man Lymphocytes # (Manual) Monocytes # (Manual) Eosinophils # (Manual) Nucleated RBC % Basophils # (Manual) APTT Heparin Anti-Xa Level ABG pH POC ABG pO2 ABG pO2 ABG HCO3 ABG O2 Saturation ABG Base Excess POC ABG pCO2 ABG Hemoglobin ABG Oxyhemoglobin ABG Glucose Oxyhemoglobin Sodium Potassium Chloride Carbon Dioxide BUN Creatinine Glucose POC Glucose 142 H 111 H 169 H Lactic Acid Calcium Phosphorus Magnesium AST ALT Lactate Dehydrogenase CK-MB (CK-2) C-Reactive Protein NT-Pro-B Natriuret Pep Total Protein Albumin Arterial Blood Glucose Urine WBC (Auto) 12/07/19 12/07/19 12/07/19 12:41 13:25 18:19 WBC 12.4 H RBC 3.53 L Hgb 10.2 L Hct 32.1 L MCHC RDW 15.3 H MCV MCH Lymph % (Auto) 10.6 L Coleman % (Auto) 7.8 H Coleman # 1.0 H Eos # Lymph # (Auto) Coleman # (Auto) Eos # (Auto) Seg Neutrophils % 77.6 H Seg Neuts % (Manual) Baso # (Auto) Lymphocytes % (Manual) Monocytes % (Manual) Eosinophils % (Manual) Basophils % (Manual) Seg Neutrophils # 9.6 H Seg Neutrophils # Man Lymphocytes # (Manual) Monocytes # (Manual) Eosinophils # (Manual) Nucleated RBC % Basophils # (Manual) APTT Heparin Anti-Xa Level ABG pH POC ABG pO2 ABG pO2 ABG HCO3 ABG O2 Saturation ABG Base Excess POC ABG pCO2 ABG Hemoglobin ABG Oxyhemoglobin ABG Glucose Oxyhemoglobin Sodium 149 H Potassium Chloride 108.4 H Carbon Dioxide BUN 26 H Creatinine 0.6 L Glucose 149 H POC Glucose 164 H Lactic Acid Calcium Phosphorus Magnesium 2.60 H AST 121 H ALT 145 H Lactate Dehydrogenase CK-MB (CK-2) C-Reactive Protein NT-Pro-B Natriuret Pep Total Protein Albumin 2.6 L Arterial Blood Glucose Urine WBC (Auto) 12/07/19 12/08/19 12/08/19 22:25 00:02 03:55 WBC 13.3 H RBC 3.40 L Hgb 9.7 L Hct 30.8 L MCHC 31 L RDW 15.5 H MCV MCH Lymph % (Auto) Coleman % (Auto) 8.1 H Coleman # 1.1 H Eos # Lymph # (Auto) Coleman # (Auto) Eos # (Auto) Seg Neutrophils % 73.0 H Seg Neuts % (Manual) Baso # (Auto) Lymphocytes % (Manual) Monocytes % (Manual) Eosinophils % (Manual) Basophils % (Manual) Seg Neutrophils # 9.7 H Seg Neutrophils # Man Lymphocytes # (Manual) Monocytes # (Manual) Eosinophils # (Manual) Nucleated RBC % Basophils # (Manual) APTT Heparin Anti-Xa Level 0.12 L ABG pH POC ABG pO2 ABG pO2 ABG HCO3 ABG O2 Saturation ABG Base Excess POC ABG pCO2 ABG Hemoglobin ABG Oxyhemoglobin ABG Glucose Oxyhemoglobin Sodium Potassium Chloride Carbon Dioxide BUN Creatinine Glucose POC Glucose 151 H Lactic Acid Calcium Phosphorus Magnesium AST ALT Lactate Dehydrogenase CK-MB (CK-2) C-Reactive Protein NT-Pro-B Natriuret Pep Total Protein Albumin Arterial Blood Glucose Urine WBC (Auto) 12/08/19 12/08/19 12/08/19 03:55 05:21 06:01 WBC RBC Hgb Hct MCHC RDW MCV MCH Lymph % (Auto) Coleman % (Auto) Coleman # Eos # Lymph # (Auto) Coleman # (Auto) Eos # (Auto) Seg Neutrophils % Seg Neuts % (Manual) Baso # (Auto) Lymphocytes % (Manual) Monocytes % (Manual) Eosinophils % (Manual) Basophils % (Manual) Seg Neutrophils # Seg Neutrophils # Man Lymphocytes # (Manual) Monocytes # (Manual) Eosinophils # (Manual) Nucleated RBC % Basophils # (Manual) APTT Heparin Anti-Xa Level 0.20 L ABG pH POC ABG pO2 ABG pO2 ABG HCO3 ABG O2 Saturation ABG Base Excess POC ABG pCO2 ABG Hemoglobin ABG Oxyhemoglobin ABG Glucose Oxyhemoglobin Sodium 149 H Potassium Chloride 108.0 H Carbon Dioxide BUN 28 H Creatinine 0.6 L Glucose 144 H POC Glucose 143 H Lactic Acid Calcium Phosphorus Magnesium AST 98 H ALT 145 H Lactate Dehydrogenase CK-MB (CK-2) C-Reactive Protein NT-Pro-B Natriuret Pep Total Protein 6.0 L Albumin 2.4 L Arterial Blood Glucose Urine WBC (Auto) 12/08/19 12/08/19 12/08/19 12:08 18:11 23:53 WBC RBC Hgb Hct MCHC RDW MCV MCH Lymph % (Auto) Coleman % (Auto) Coleman # Eos # Lymph # (Auto) Coleman # (Auto) Eos # (Auto) Seg Neutrophils % Seg Neuts % (Manual) Baso # (Auto) Lymphocytes % (Manual) Monocytes % (Manual) Eosinophils % (Manual) Basophils % (Manual) Seg Neutrophils # Seg Neutrophils # Man Lymphocytes # (Manual) Monocytes # (Manual) Eosinophils # (Manual) Nucleated RBC % Basophils # (Manual) APTT Heparin Anti-Xa Level ABG pH POC ABG pO2 ABG pO2 ABG HCO3 ABG O2 Saturation ABG Base Excess POC ABG pCO2 ABG Hemoglobin ABG Oxyhemoglobin ABG Glucose Oxyhemoglobin Sodium Potassium Chloride Carbon Dioxide BUN Creatinine Glucose POC Glucose 172 H 122 H 162 H Lactic Acid Calcium Phosphorus Magnesium AST ALT Lactate Dehydrogenase CK-MB (CK-2) C-Reactive Protein NT-Pro-B Natriuret Pep Total Protein Albumin Arterial Blood Glucose Urine WBC (Auto) 12/09/19 12/09/19 12/09/19 04:03 04:03 05:53 WBC RBC Hgb 9.1 L Hct 28.9 L MCHC RDW MCV MCH Lymph % (Auto) Coleman % (Auto) Coleman # Eos # Lymph # (Auto) Coleman # (Auto) Eos # (Auto) Seg Neutrophils % Seg Neuts % (Manual) Baso # (Auto) Lymphocytes % (Manual) Monocytes % (Manual) Eosinophils % (Manual) Basophils % (Manual) Seg Neutrophils # Seg Neutrophils # Man Lymphocytes # (Manual) Monocytes # (Manual) Eosinophils # (Manual) Nucleated RBC % Basophils # (Manual) APTT Heparin Anti-Xa Level 0.15 L ABG pH POC ABG pO2 ABG pO2 ABG HCO3 ABG O2 Saturation ABG Base Excess POC ABG pCO2 ABG Hemoglobin ABG Oxyhemoglobin ABG Glucose Oxyhemoglobin Sodium Potassium Chloride Carbon Dioxide BUN Creatinine Glucose POC Glucose 124 H Lactic Acid Calcium Phosphorus Magnesium AST ALT Lactate Dehydrogenase CK-MB (CK-2) C-Reactive Protein NT-Pro-B Natriuret Pep Total Protein Albumin Arterial Blood Glucose Urine WBC (Auto) 12/09/19 12/09/19 12/10/19 09:43 12:41 00:13 WBC RBC Hgb Hct MCHC RDW MCV MCH Lymph % (Auto) Coleman % (Auto) Coleman # Eos # Lymph # (Auto) Coleman # (Auto) Eos # (Auto) Seg Neutrophils % Seg Neuts % (Manual) Baso # (Auto) Lymphocytes % (Manual) Monocytes % (Manual) Eosinophils % (Manual) Basophils % (Manual) Seg Neutrophils # Seg Neutrophils # Man Lymphocytes # (Manual) Monocytes # (Manual) Eosinophils # (Manual) Nucleated RBC % Basophils # (Manual) APTT Heparin Anti-Xa Level ABG pH POC ABG pO2 ABG pO2 ABG HCO3 ABG O2 Saturation ABG Base Excess POC ABG pCO2 ABG Hemoglobin ABG Oxyhemoglobin ABG Glucose Oxyhemoglobin Sodium Potassium Chloride Carbon Dioxide BUN 25 H Creatinine 0.6 L Glucose 131 H POC Glucose 109 H 120 H Lactic Acid Calcium Phosphorus Magnesium AST ALT Lactate Dehydrogenase CK-MB (CK-2) C-Reactive Protein NT-Pro-B Natriuret Pep Total Protein Albumin Arterial Blood Glucose Urine WBC (Auto) 12/10/19 12/10/19 12/10/19 04:14 04:14 12:00 WBC 13.3 H RBC 3.34 L Hgb 9.6 L Hct 30.4 L MCHC RDW 15.4 H MCV MCH Lymph % (Auto) Coleman % (Auto) Coleman # Eos # Lymph # (Auto) Coleman # (Auto) Eos # (Auto) Seg Neutrophils % Seg Neuts % (Manual) 75.0 H Baso # (Auto) Lymphocytes % (Manual) 13.0 L Monocytes % (Manual) 8.0 H Eosinophils % (Manual) Basophils % (Manual) 2.0 H Seg Neutrophils # Seg Neutrophils # Man 10.0 H Lymphocytes # (Manual) Monocytes # (Manual) 1.1 H Eosinophils # (Manual) Nucleated RBC % Basophils # (Manual) 0.3 H APTT Heparin Anti-Xa Level ABG pH POC ABG pO2 ABG pO2 ABG HCO3 ABG O2 Saturation ABG Base Excess POC ABG pCO2 ABG Hemoglobin ABG Oxyhemoglobin ABG Glucose Oxyhemoglobin Sodium 147 H Potassium Chloride 108.3 H Carbon Dioxide BUN 21 H Creatinine 0.6 L Glucose 104 H POC Glucose 133 H Lactic Acid Calcium Phosphorus Magnesium AST ALT Lactate Dehydrogenase CK-MB (CK-2) C-Reactive Protein NT-Pro-B Natriuret Pep Total Protein Albumin Arterial Blood Glucose Urine WBC (Auto) 12/10/19 12/10/19 12/11/19 18:44 21:20 00:08 WBC 14.9 H RBC 3.36 L Hgb 9.6 L Hct 30.5 L MCHC RDW 15.4 H MCV MCH Lymph % (Auto) Coleman % (Auto) Coleman # Eos # Lymph # (Auto) Coleman # (Auto) Eos # (Auto) Seg Neutrophils % Seg Neuts % (Manual) Baso # (Auto) Lymphocytes % (Manual) Monocytes % (Manual) Eosinophils % (Manual) Basophils % (Manual) Seg Neutrophils # Seg Neutrophils # Man Lymphocytes # (Manual) Monocytes # (Manual) Eosinophils # (Manual) Nucleated RBC % Basophils # (Manual) APTT Heparin Anti-Xa Level ABG pH POC ABG pO2 ABG pO2 ABG HCO3 ABG O2 Saturation ABG Base Excess POC ABG pCO2 ABG Hemoglobin ABG Oxyhemoglobin ABG Glucose Oxyhemoglobin Sodium Potassium Chloride Carbon Dioxide BUN Creatinine Glucose POC Glucose 119 H 134 H Lactic Acid Calcium Phosphorus Magnesium AST ALT Lactate Dehydrogenase CK-MB (CK-2) C-Reactive Protein NT-Pro-B Natriuret Pep Total Protein Albumin Arterial Blood Glucose Urine WBC (Auto) 12/11/19 12/11/19 12/11/19 03:54 07:28 08:36 WBC 11.9 H RBC 3.25 L Hgb 9.6 L Hct 29.2 L MCHC RDW 15.7 H MCV MCH Lymph % (Auto) Coleman % (Auto) Coleman # Eos # Lymph # (Auto) Coleman # (Auto) Eos # (Auto) Seg Neutrophils % Seg Neuts % (Manual) Baso # (Auto) Lymphocytes % (Manual) Monocytes % (Manual) Eosinophils % (Manual) Basophils % (Manual) Seg Neutrophils # Seg Neutrophils # Man Lymphocytes # (Manual) Monocytes # (Manual) Eosinophils # (Manual) Nucleated RBC % Basophils # (Manual) APTT Heparin Anti-Xa Level 0.10 L 0.16 L ABG pH POC ABG pO2 ABG pO2 ABG HCO3 ABG O2 Saturation ABG Base Excess POC ABG pCO2 ABG Hemoglobin ABG Oxyhemoglobin ABG Glucose Oxyhemoglobin Sodium Potassium Chloride Carbon Dioxide BUN Creatinine Glucose POC Glucose Lactic Acid Calcium Phosphorus Magnesium AST ALT Lactate Dehydrogenase CK-MB (CK-2) C-Reactive Protein NT-Pro-B Natriuret Pep Total Protein Albumin Arterial Blood Glucose Urine WBC (Auto) 12/11/19 12/11/19 12/11/19 08:36 11:45 17:15 WBC RBC Hgb Hct MCHC RDW MCV MCH Lymph % (Auto) Coleman % (Auto) Coleman # Eos # Lymph # (Auto) Coleman # (Auto) Eos # (Auto) Seg Neutrophils % Seg Neuts % (Manual) Baso # (Auto) Lymphocytes % (Manual) Monocytes % (Manual) Eosinophils % (Manual) Basophils % (Manual) Seg Neutrophils # Seg Neutrophils # Man Lymphocytes # (Manual) Monocytes # (Manual) Eosinophils # (Manual) Nucleated RBC % Basophils # (Manual) APTT Heparin Anti-Xa Level ABG pH POC ABG pO2 ABG pO2 ABG HCO3 ABG O2 Saturation ABG Base Excess POC ABG pCO2 ABG Hemoglobin ABG Oxyhemoglobin ABG Glucose Oxyhemoglobin Sodium Potassium Chloride Carbon Dioxide BUN Creatinine 0.5 L Glucose 128 H POC Glucose 136 H 109 H Lactic Acid Calcium Phosphorus Magnesium AST ALT Lactate Dehydrogenase CK-MB (CK-2) C-Reactive Protein NT-Pro-B Natriuret Pep Total Protein Albumin Arterial Blood Glucose Urine WBC (Auto) 12/12/19 12/12/19 12/12/19 00:03 05:53 05:53 WBC RBC Hgb 8.8 L Hct 27.6 L MCHC RDW MCV MCH Lymph % (Auto) Coleman % (Auto) Coleman # Eos # Lymph # (Auto) Coleman # (Auto) Eos # (Auto) Seg Neutrophils % Seg Neuts % (Manual) Baso # (Auto) Lymphocytes % (Manual) Monocytes % (Manual) Eosinophils % (Manual) Basophils % (Manual) Seg Neutrophils # Seg Neutrophils # Man Lymphocytes # (Manual) Monocytes # (Manual) Eosinophils # (Manual) Nucleated RBC % Basophils # (Manual) APTT Heparin Anti-Xa Level 0.22 L ABG pH POC ABG pO2 ABG pO2 ABG HCO3 ABG O2 Saturation ABG Base Excess POC ABG pCO2 ABG Hemoglobin ABG Oxyhemoglobin ABG Glucose Oxyhemoglobin Sodium Potassium Chloride Carbon Dioxide BUN Creatinine Glucose POC Glucose 116 H Lactic Acid Calcium Phosphorus Magnesium AST ALT Lactate Dehydrogenase CK-MB (CK-2) C-Reactive Protein NT-Pro-B Natriuret Pep Total Protein Albumin Arterial Blood Glucose Urine WBC (Auto) 12/12/19 12/12/19 12/12/19 09:38 12:18 17:44 WBC RBC Hgb Hct MCHC RDW MCV MCH Lymph % (Auto) Coleman % (Auto) Coleman # Eos # Lymph # (Auto) Coleman # (Auto) Eos # (Auto) Seg Neutrophils % Seg Neuts % (Manual) Baso # (Auto) Lymphocytes % (Manual) Monocytes % (Manual) Eosinophils % (Manual) Basophils % (Manual) Seg Neutrophils # Seg Neutrophils # Man Lymphocytes # (Manual) Monocytes # (Manual) Eosinophils # (Manual) Nucleated RBC % Basophils # (Manual) APTT Heparin Anti-Xa Level ABG pH POC ABG pO2 ABG pO2 ABG HCO3 ABG O2 Saturation ABG Base Excess POC ABG pCO2 ABG Hemoglobin ABG Oxyhemoglobin ABG Glucose Oxyhemoglobin Sodium Potassium Chloride Carbon Dioxide BUN Creatinine Glucose POC Glucose 115 H 146 H 146 H Lactic Acid Calcium Phosphorus Magnesium AST ALT Lactate Dehydrogenase CK-MB (CK-2) C-Reactive Protein NT-Pro-B Natriuret Pep Total Protein Albumin Arterial Blood Glucose Urine WBC (Auto) 12/12/19 12/13/19 12/13/19 23:33 05:32 05:32 WBC 13.1 H RBC 3.27 L Hgb 9.5 L Hct 29.3 L MCHC RDW 15.6 H MCV MCH Lymph % (Auto) Coleman % (Auto) Coleman # Eos # Lymph # (Auto) Coleman # (Auto) Eos # (Auto) Seg Neutrophils % Seg Neuts % (Manual) 74.0 H Baso # (Auto) Lymphocytes % (Manual) 8.0 L Monocytes % (Manual) 9.0 H Eosinophils % (Manual) 5.0 H Basophils % (Manual) Seg Neutrophils # Seg Neutrophils # Man 9.7 H Lymphocytes # (Manual) 1.0 L Monocytes # (Manual) 1.2 H Eosinophils # (Manual) 0.7 H Nucleated RBC % Basophils # (Manual) APTT Heparin Anti-Xa Level 0.20 L ABG pH POC ABG pO2 ABG pO2 ABG HCO3 ABG O2 Saturation ABG Base Excess POC ABG pCO2 ABG Hemoglobin ABG Oxyhemoglobin ABG Glucose Oxyhemoglobin Sodium Potassium Chloride Carbon Dioxide BUN Creatinine Glucose POC Glucose 126 H Lactic Acid Calcium Phosphorus Magnesium AST ALT Lactate Dehydrogenase CK-MB (CK-2) C-Reactive Protein NT-Pro-B Natriuret Pep Total Protein Albumin Arterial Blood Glucose Urine WBC (Auto) 12/13/19 12/13/19 12/13/19 05:32 05:46 11:57 WBC RBC Hgb Hct MCHC RDW MCV MCH Lymph % (Auto) Coleman % (Auto) Coleman # Eos # Lymph # (Auto) Coleman # (Auto) Eos # (Auto) Seg Neutrophils % Seg Neuts % (Manual) Baso # (Auto) Lymphocytes % (Manual) Monocytes % (Manual) Eosinophils % (Manual) Basophils % (Manual) Seg Neutrophils # Seg Neutrophils # Man Lymphocytes # (Manual) Monocytes # (Manual) Eosinophils # (Manual) Nucleated RBC % Basophils # (Manual) APTT Heparin Anti-Xa Level ABG pH POC ABG pO2 ABG pO2 ABG HCO3 ABG O2 Saturation ABG Base Excess POC ABG pCO2 ABG Hemoglobin ABG Oxyhemoglobin ABG Glucose Oxyhemoglobin Sodium Potassium Chloride Carbon Dioxide 31 H BUN Creatinine 0.6 L Glucose 114 H POC Glucose 118 H 133 H Lactic Acid Calcium Phosphorus Magnesium AST ALT Lactate Dehydrogenase CK-MB (CK-2) C-Reactive Protein NT-Pro-B Natriuret Pep Total Protein Albumin Arterial Blood Glucose Urine WBC (Auto) 12/13/19 12/13/19 12/14/19 17:44 23:46 05:32 WBC RBC Hgb Hct MCHC RDW MCV MCH Lymph % (Auto) Coleman % (Auto) Coleman # Eos # Lymph # (Auto) Coleman # (Auto) Eos # (Auto) Seg Neutrophils % Seg Neuts % (Manual) Baso # (Auto) Lymphocytes % (Manual) Monocytes % (Manual) Eosinophils % (Manual) Basophils % (Manual) Seg Neutrophils # Seg Neutrophils # Man Lymphocytes # (Manual) Monocytes # (Manual) Eosinophils # (Manual) Nucleated RBC % Basophils # (Manual) APTT Heparin Anti-Xa Level ABG pH POC ABG pO2 ABG pO2 ABG HCO3 ABG O2 Saturation ABG Base Excess POC ABG pCO2 ABG Hemoglobin ABG Oxyhemoglobin ABG Glucose Oxyhemoglobin Sodium Potassium Chloride Carbon Dioxide BUN Creatinine Glucose POC Glucose 161 H 126 H 139 H Lactic Acid Calcium Phosphorus Magnesium AST ALT Lactate Dehydrogenase CK-MB (CK-2) C-Reactive Protein NT-Pro-B Natriuret Pep Total Protein Albumin Arterial Blood Glucose Urine WBC (Auto) 12/14/19 12/14/19 12/14/19 06:03 06:03 09:37 WBC RBC Hgb 9.6 L Hct 30.4 L MCHC RDW MCV MCH Lymph % (Auto) Coleman % (Auto) Coleman # Eos # Lymph # (Auto) Coleman # (Auto) Eos # (Auto) Seg Neutrophils % Seg Neuts % (Manual) Baso # (Auto) Lymphocytes % (Manual) Monocytes % (Manual) Eosinophils % (Manual) Basophils % (Manual) Seg Neutrophils # Seg Neutrophils # Man Lymphocytes # (Manual) Monocytes # (Manual) Eosinophils # (Manual) Nucleated RBC % Basophils # (Manual) APTT Heparin Anti-Xa Level 0.24 L ABG pH POC ABG pO2 ABG pO2 ABG HCO3 ABG O2 Saturation ABG Base Excess POC ABG pCO2 ABG Hemoglobin ABG Oxyhemoglobin ABG Glucose Oxyhemoglobin Sodium Potassium Chloride Carbon Dioxide BUN Creatinine 0.6 L Glucose 162 H POC Glucose Lactic Acid Calcium Phosphorus Magnesium AST 71 H ALT 118 H Lactate Dehydrogenase CK-MB (CK-2) C-Reactive Protein NT-Pro-B Natriuret Pep Total Protein 6.2 L Albumin 2.3 L Arterial Blood Glucose Urine WBC (Auto) 12/14/19 12/14/19 12/15/19 12:06 18:18 00:19 WBC RBC Hgb Hct MCHC RDW MCV MCH Lymph % (Auto) Coleman % (Auto) Coleman # Eos # Lymph # (Auto) Coleman # (Auto) Eos # (Auto) Seg Neutrophils % Seg Neuts % (Manual) Baso # (Auto) Lymphocytes % (Manual) Monocytes % (Manual) Eosinophils % (Manual) Basophils % (Manual) Seg Neutrophils # Seg Neutrophils # Man Lymphocytes # (Manual) Monocytes # (Manual) Eosinophils # (Manual) Nucleated RBC % Basophils # (Manual) APTT Heparin Anti-Xa Level ABG pH POC ABG pO2 ABG pO2 ABG HCO3 ABG O2 Saturation ABG Base Excess POC ABG pCO2 ABG Hemoglobin ABG Oxyhemoglobin ABG Glucose Oxyhemoglobin Sodium Potassium Chloride Carbon Dioxide BUN Creatinine Glucose POC Glucose 147 H 166 H 123 H Lactic Acid Calcium Phosphorus Magnesium AST ALT Lactate Dehydrogenase CK-MB (CK-2) C-Reactive Protein NT-Pro-B Natriuret Pep Total Protein Albumin Arterial Blood Glucose Urine WBC (Auto) 12/15/19 12/15/19 12/15/19 05:28 05:29 05:29 WBC 14.9 H RBC 3.19 L Hgb 9.1 L Hct 28.7 L MCHC RDW 16.0 H MCV MCH Lymph % (Auto) Coleman % (Auto) Coleman # Eos # Lymph # (Auto) Coleman # (Auto) Eos # (Auto) Seg Neutrophils % Seg Neuts % (Manual) Baso # (Auto) Lymphocytes % (Manual) Monocytes % (Manual) Eosinophils % (Manual) Basophils % (Manual) Seg Neutrophils # Seg Neutrophils # Man Lymphocytes # (Manual) Monocytes # (Manual) Eosinophils # (Manual) Nucleated RBC % Basophils # (Manual) APTT Heparin Anti-Xa Level 0.19 L ABG pH POC ABG pO2 ABG pO2 ABG HCO3 ABG O2 Saturation ABG Base Excess POC ABG pCO2 ABG Hemoglobin ABG Oxyhemoglobin ABG Glucose Oxyhemoglobin Sodium Potassium Chloride Carbon Dioxide BUN Creatinine 0.6 L Glucose 110 H POC Glucose Lactic Acid Calcium Phosphorus Magnesium AST ALT Lactate Dehydrogenase CK-MB (CK-2) C-Reactive Protein NT-Pro-B Natriuret Pep Total Protein Albumin Arterial Blood Glucose Urine WBC (Auto) 12/15/19 12/15/19 12/15/19 05:53 11:50 17:26 WBC RBC Hgb Hct MCHC RDW MCV MCH Lymph % (Auto) Coleman % (Auto) Coleman # Eos # Lymph # (Auto) Coleman # (Auto) Eos # (Auto) Seg Neutrophils % Seg Neuts % (Manual) Baso # (Auto) Lymphocytes % (Manual) Monocytes % (Manual) Eosinophils % (Manual) Basophils % (Manual) Seg Neutrophils # Seg Neutrophils # Man Lymphocytes # (Manual) Monocytes # (Manual) Eosinophils # (Manual) Nucleated RBC % Basophils # (Manual) APTT Heparin Anti-Xa Level ABG pH POC ABG pO2 ABG pO2 ABG HCO3 ABG O2 Saturation ABG Base Excess POC ABG pCO2 ABG Hemoglobin ABG Oxyhemoglobin ABG Glucose Oxyhemoglobin Sodium Potassium Chloride Carbon Dioxide BUN Creatinine Glucose POC Glucose 119 H 132 H 128 H Lactic Acid Calcium Phosphorus Magnesium AST ALT Lactate Dehydrogenase CK-MB (CK-2) C-Reactive Protein NT-Pro-B Natriuret Pep Total Protein Albumin Arterial Blood Glucose Urine WBC (Auto) 12/15/19 12/16/19 12/16/19 23:11 05:30 05:46 WBC RBC Hgb 8.8 L Hct 27.9 L MCHC RDW MCV MCH Lymph % (Auto) Coleman % (Auto) Coleman # Eos # Lymph # (Auto) Coleman # (Auto) Eos # (Auto) Seg Neutrophils % Seg Neuts % (Manual) Baso # (Auto) Lymphocytes % (Manual) Monocytes % (Manual) Eosinophils % (Manual) Basophils % (Manual) Seg Neutrophils # Seg Neutrophils # Man Lymphocytes # (Manual) Monocytes # (Manual) Eosinophils # (Manual) Nucleated RBC % Basophils # (Manual) APTT Heparin Anti-Xa Level ABG pH POC ABG pO2 ABG pO2 ABG HCO3 ABG O2 Saturation ABG Base Excess POC ABG pCO2 ABG Hemoglobin ABG Oxyhemoglobin ABG Glucose Oxyhemoglobin Sodium Potassium Chloride Carbon Dioxide BUN Creatinine Glucose POC Glucose 150 H 134 H Lactic Acid Calcium Phosphorus Magnesium AST ALT Lactate Dehydrogenase CK-MB (CK-2) C-Reactive Protein NT-Pro-B Natriuret Pep Total Protein Albumin Arterial Blood Glucose Urine WBC (Auto) 12/16/19 12/16/19 12/16/19 05:46 05:46 11:44 WBC RBC Hgb Hct MCHC RDW MCV MCH Lymph % (Auto) Coleman % (Auto) Coleman # Eos # Lymph # (Auto) Coleman # (Auto) Eos # (Auto) Seg Neutrophils % Seg Neuts % (Manual) Baso # (Auto) Lymphocytes % (Manual) Monocytes % (Manual) Eosinophils % (Manual) Basophils % (Manual) Seg Neutrophils # Seg Neutrophils # Man Lymphocytes # (Manual) Monocytes # (Manual) Eosinophils # (Manual) Nucleated RBC % Basophils # (Manual) APTT Heparin Anti-Xa Level 0.20 L ABG pH POC ABG pO2 ABG pO2 ABG HCO3 ABG O2 Saturation ABG Base Excess POC ABG pCO2 ABG Hemoglobin ABG Oxyhemoglobin ABG Glucose Oxyhemoglobin Sodium Potassium Chloride Carbon Dioxide 31 H BUN Creatinine 0.5 L Glucose 147 H POC Glucose 164 H Lactic Acid Calcium Phosphorus Magnesium AST ALT Lactate Dehydrogenase CK-MB (CK-2) C-Reactive Protein NT-Pro-B Natriuret Pep Total Protein Albumin Arterial Blood Glucose Urine WBC (Auto) 12/16/19 12/16/19 12/17/19 17:17 23:49 05:30 WBC 13.9 H RBC 3.27 L Hgb 9.4 L Hct 29.2 L MCHC RDW 16.0 H MCV MCH Lymph % (Auto) Coleman % (Auto) 8.8 H Coleman # Eos # Lymph # (Auto) Coleman # (Auto) 1.2 H Eos # (Auto) 0.5 H Seg Neutrophils % 70.5 H Seg Neuts % (Manual) Baso # (Auto) 0.2 H Lymphocytes % (Manual) Monocytes % (Manual) Eosinophils % (Manual) Basophils % (Manual) Seg Neutrophils # 9.8 H Seg Neutrophils # Man Lymphocytes # (Manual) Monocytes # (Manual) Eosinophils # (Manual) Nucleated RBC % Basophils # (Manual) APTT Heparin Anti-Xa Level ABG pH POC ABG pO2 ABG pO2 ABG HCO3 ABG O2 Saturation ABG Base Excess POC ABG pCO2 ABG Hemoglobin ABG Oxyhemoglobin ABG Glucose Oxyhemoglobin Sodium Potassium Chloride Carbon Dioxide BUN Creatinine Glucose POC Glucose 162 H 144 H Lactic Acid Calcium Phosphorus Magnesium AST ALT Lactate Dehydrogenase CK-MB (CK-2) C-Reactive Protein NT-Pro-B Natriuret Pep Total Protein Albumin Arterial Blood Glucose Urine WBC (Auto) 12/17/19 12/17/19 12/17/19 05:30 06:06 11:50 WBC RBC Hgb Hct MCHC RDW MCV MCH Lymph % (Auto) Coleman % (Auto) Coleman # Eos # Lymph # (Auto) Coleman # (Auto) Eos # (Auto) Seg Neutrophils % Seg Neuts % (Manual) Baso # (Auto) Lymphocytes % (Manual) Monocytes % (Manual) Eosinophils % (Manual) Basophils % (Manual) Seg Neutrophils # Seg Neutrophils # Man Lymphocytes # (Manual) Monocytes # (Manual) Eosinophils # (Manual) Nucleated RBC % Basophils # (Manual) APTT Heparin Anti-Xa Level ABG pH POC ABG pO2 ABG pO2 ABG HCO3 ABG O2 Saturation ABG Base Excess POC ABG pCO2 ABG Hemoglobin ABG Oxyhemoglobin ABG Glucose Oxyhemoglobin Sodium Potassium Chloride 97.4 L Carbon Dioxide 32 H BUN Creatinine 0.5 L Glucose 135 H POC Glucose 151 H 140 H Lactic Acid Calcium Phosphorus Magnesium AST ALT Lactate Dehydrogenase CK-MB (CK-2) C-Reactive Protein NT-Pro-B Natriuret Pep Total Protein Albumin Arterial Blood Glucose Urine WBC (Auto) 12/17/19 12/17/19 12/18/19 17:50 23:46 05:17 WBC RBC Hgb 8.8 L Hct 28.0 L MCHC RDW MCV MCH Lymph % (Auto) Coleman % (Auto) Coleman # Eos # Lymph # (Auto) Coleman # (Auto) Eos # (Auto) Seg Neutrophils % Seg Neuts % (Manual) Baso # (Auto) Lymphocytes % (Manual) Monocytes % (Manual) Eosinophils % (Manual) Basophils % (Manual) Seg Neutrophils # Seg Neutrophils # Man Lymphocytes # (Manual) Monocytes # (Manual) Eosinophils # (Manual) Nucleated RBC % Basophils # (Manual) APTT Heparin Anti-Xa Level ABG pH POC ABG pO2 ABG pO2 ABG HCO3 ABG O2 Saturation ABG Base Excess POC ABG pCO2 ABG Hemoglobin ABG Oxyhemoglobin ABG Glucose Oxyhemoglobin Sodium Potassium Chloride Carbon Dioxide BUN Creatinine Glucose POC Glucose 158 H 150 H Lactic Acid Calcium Phosphorus Magnesium AST ALT Lactate Dehydrogenase CK-MB (CK-2) C-Reactive Protein NT-Pro-B Natriuret Pep Total Protein Albumin Arterial Blood Glucose Urine WBC (Auto) 12/18/19 12/18/19 12/18/19 05:17 05:49 11:12 WBC RBC Hgb Hct MCHC RDW MCV MCH Lymph % (Auto) Coleman % (Auto) Coleman # Eos # Lymph # (Auto) Coleman # (Auto) Eos # (Auto) Seg Neutrophils % Seg Neuts % (Manual) Baso # (Auto) Lymphocytes % (Manual) Monocytes % (Manual) Eosinophils % (Manual) Basophils % (Manual) Seg Neutrophils # Seg Neutrophils # Man Lymphocytes # (Manual) Monocytes # (Manual) Eosinophils # (Manual) Nucleated RBC % Basophils # (Manual) APTT Heparin Anti-Xa Level 0.16 L ABG pH POC ABG pO2 ABG pO2 ABG HCO3 ABG O2 Saturation ABG Base Excess POC ABG pCO2 ABG Hemoglobin ABG Oxyhemoglobin ABG Glucose Oxyhemoglobin Sodium Potassium Chloride Carbon Dioxide BUN Creatinine Glucose POC Glucose 127 H 191 H Lactic Acid Calcium Phosphorus Magnesium AST ALT Lactate Dehydrogenase CK-MB (CK-2) C-Reactive Protein NT-Pro-B Natriuret Pep Total Protein Albumin Arterial Blood Glucose Urine WBC (Auto) 12/18/19 12/18/19 12/19/19 17:03 20:16 00:08 WBC RBC Hgb Hct MCHC RDW MCV MCH Lymph % (Auto) Coleman % (Auto) Coleman # Eos # Lymph # (Auto) Coleman # (Auto) Eos # (Auto) Seg Neutrophils % Seg Neuts % (Manual) Baso # (Auto) Lymphocytes % (Manual) Monocytes % (Manual) Eosinophils % (Manual) Basophils % (Manual) Seg Neutrophils # Seg Neutrophils # Man Lymphocytes # (Manual) Monocytes # (Manual) Eosinophils # (Manual) Nucleated RBC % Basophils # (Manual) APTT Heparin Anti-Xa Level ABG pH POC ABG pO2 ABG pO2 ABG HCO3 ABG O2 Saturation ABG Base Excess POC ABG pCO2 ABG Hemoglobin ABG Oxyhemoglobin ABG Glucose Oxyhemoglobin Sodium Potassium Chloride Carbon Dioxide BUN Creatinine Glucose POC Glucose 133 H 128 H 129 H Lactic Acid Calcium Phosphorus Magnesium AST ALT Lactate Dehydrogenase CK-MB (CK-2) C-Reactive Protein NT-Pro-B Natriuret Pep Total Protein Albumin Arterial Blood Glucose Urine WBC (Auto) 12/19/19 12/19/19 12/19/19 04:45 04:45 05:35 WBC RBC Hgb Hct MCHC RDW MCV MCH Lymph % (Auto) Coleman % (Auto) Coleman # Eos # Lymph # (Auto) Coleman # (Auto) Eos # (Auto) Seg Neutrophils % Seg Neuts % (Manual) Baso # (Auto) Lymphocytes % (Manual) Monocytes % (Manual) Eosinophils % (Manual) Basophils % (Manual) Seg Neutrophils # Seg Neutrophils # Man Lymphocytes # (Manual) Monocytes # (Manual) Eosinophils # (Manual) Nucleated RBC % Basophils # (Manual) APTT Heparin Anti-Xa Level 0.17 L ABG pH POC ABG pO2 ABG pO2 ABG HCO3 ABG O2 Saturation ABG Base Excess POC ABG pCO2 ABG Hemoglobin ABG Oxyhemoglobin ABG Glucose Oxyhemoglobin Sodium Potassium Chloride Carbon Dioxide BUN Creatinine Glucose POC Glucose 120 H Lactic Acid Calcium Phosphorus Magnesium AST ALT Lactate Dehydrogenase 228 H CK-MB (CK-2) C-Reactive Protein NT-Pro-B Natriuret Pep Total Protein Albumin Arterial Blood Glucose Urine WBC (Auto) 12/19/19 12/19/19 12/19/19 09:20 11:32 11:32 WBC 14.6 H RBC 3.08 L Hgb 9.0 L Hct 26.8 L MCHC RDW 15.9 H MCV MCH Lymph % (Auto) Coleman % (Auto) Coleman # Eos # Lymph # (Auto) Coleman # (Auto) Eos # (Auto) Seg Neutrophils % Seg Neuts % (Manual) 82.0 H Baso # (Auto) Lymphocytes % (Manual) 10.0 L Monocytes % (Manual) Eosinophils % (Manual) Basophils % (Manual) Seg Neutrophils # Seg Neutrophils # Man 12.0 H Lymphocytes # (Manual) Monocytes # (Manual) 0.9 H Eosinophils # (Manual) Nucleated RBC % 1.0 H Basophils # (Manual) APTT Heparin Anti-Xa Level ABG pH 7.451 H POC ABG pO2 ABG pO2 62.6 L ABG HCO3 33.2 H ABG O2 Saturation 93.8 L ABG Base Excess 8.3 H POC ABG pCO2 ABG Hemoglobin 8.3 L ABG Oxyhemoglobin ABG Glucose Oxyhemoglobin 91.9 L Sodium Potassium Chloride 95.0 L Carbon Dioxide 33 H BUN 22 H Creatinine 0.6 L Glucose 150 H POC Glucose Lactic Acid Calcium Phosphorus Magnesium AST ALT Lactate Dehydrogenase CK-MB (CK-2) C-Reactive Protein NT-Pro-B Natriuret Pep Total Protein 6.2 L Albumin 2.4 L Arterial Blood Glucose Urine WBC (Auto) 12/19/19 12/19/19 12/20/19 11:56 18:17 00:09 WBC RBC Hgb Hct MCHC RDW MCV MCH Lymph % (Auto) Coleman % (Auto) Coleman # Eos # Lymph # (Auto) Coleman # (Auto) Eos # (Auto) Seg Neutrophils % Seg Neuts % (Manual) Baso # (Auto) Lymphocytes % (Manual) Monocytes % (Manual) Eosinophils % (Manual) Basophils % (Manual) Seg Neutrophils # Seg Neutrophils # Man Lymphocytes # (Manual) Monocytes # (Manual) Eosinophils # (Manual) Nucleated RBC % Basophils # (Manual) APTT Heparin Anti-Xa Level ABG pH POC ABG pO2 ABG pO2 ABG HCO3 ABG O2 Saturation ABG Base Excess POC ABG pCO2 ABG Hemoglobin ABG Oxyhemoglobin ABG Glucose Oxyhemoglobin Sodium Potassium Chloride Carbon Dioxide BUN Creatinine Glucose POC Glucose 156 H 156 H 155 H Lactic Acid Calcium Phosphorus Magnesium AST ALT Lactate Dehydrogenase CK-MB (CK-2) C-Reactive Protein NT-Pro-B Natriuret Pep Total Protein Albumin Arterial Blood Glucose Urine WBC (Auto) 12/20/19 12/20/19 12/20/19 05:26 06:02 18:17 WBC RBC Hgb Hct MCHC RDW MCV MCH Lymph % (Auto) Coleman % (Auto) Coleman # Eos # Lymph # (Auto) Coleman # (Auto) Eos # (Auto) Seg Neutrophils % Seg Neuts % (Manual) Baso # (Auto) Lymphocytes % (Manual) Monocytes % (Manual) Eosinophils % (Manual) Basophils % (Manual) Seg Neutrophils # Seg Neutrophils # Man Lymphocytes # (Manual) Monocytes # (Manual) Eosinophils # (Manual) Nucleated RBC % Basophils # (Manual) APTT Heparin Anti-Xa Level 0.19 L ABG pH POC ABG pO2 ABG pO2 ABG HCO3 ABG O2 Saturation ABG Base Excess POC ABG pCO2 ABG Hemoglobin ABG Oxyhemoglobin ABG Glucose Oxyhemoglobin Sodium Potassium Chloride Carbon Dioxide BUN Creatinine Glucose POC Glucose 137 H 128 H Lactic Acid Calcium Phosphorus Magnesium AST ALT Lactate Dehydrogenase CK-MB (CK-2) C-Reactive Protein NT-Pro-B Natriuret Pep Total Protein Albumin Arterial Blood Glucose Urine WBC (Auto) 12/20/19 12/21/19 12/21/19 23:34 05:31 05:31 WBC 12.7 H RBC 3.09 L Hgb 8.9 L Hct 27.4 L MCHC RDW 15.8 H MCV MCH Lymph % (Auto) 12.1 L Coleman % (Auto) 7.8 H Coleman # Eos # Lymph # (Auto) Coleman # (Auto) 1.0 H Eos # (Auto) Seg Neutrophils % 77.1 H Seg Neuts % (Manual) Baso # (Auto) Lymphocytes % (Manual) Monocytes % (Manual) Eosinophils % (Manual) Basophils % (Manual) Seg Neutrophils # 9.8 H Seg Neutrophils # Man Lymphocytes # (Manual) Monocytes # (Manual) Eosinophils # (Manual) Nucleated RBC % Basophils # (Manual) APTT Heparin Anti-Xa Level ABG pH POC ABG pO2 ABG pO2 ABG HCO3 ABG O2 Saturation ABG Base Excess POC ABG pCO2 ABG Hemoglobin ABG Oxyhemoglobin ABG Glucose Oxyhemoglobin Sodium Potassium Chloride 96.9 L Carbon Dioxide 37 H BUN 27 H Creatinine 0.7 L Glucose 140 H POC Glucose 145 H Lactic Acid Calcium Phosphorus Magnesium AST ALT Lactate Dehydrogenase CK-MB (CK-2) C-Reactive Protein NT-Pro-B Natriuret Pep Total Protein Albumin Arterial Blood Glucose Urine WBC (Auto) 12/21/19 12/21/19 12/21/19 05:38 10:13 11:51 WBC RBC Hgb Hct MCHC RDW MCV MCH Lymph % (Auto) Coleman % (Auto) Coleman # Eos # Lymph # (Auto) Coleman # (Auto) Eos # (Auto) Seg Neutrophils % Seg Neuts % (Manual) Baso # (Auto) Lymphocytes % (Manual) Monocytes % (Manual) Eosinophils % (Manual) Basophils % (Manual) Seg Neutrophils # Seg Neutrophils # Man Lymphocytes # (Manual) Monocytes # (Manual) Eosinophils # (Manual) Nucleated RBC % Basophils # (Manual) APTT 23.9 L Heparin Anti-Xa Level < 0.10 L ABG pH POC ABG pO2 ABG pO2 ABG HCO3 ABG O2 Saturation ABG Base Excess POC ABG pCO2 ABG Hemoglobin ABG Oxyhemoglobin ABG Glucose Oxyhemoglobin Sodium Potassium Chloride Carbon Dioxide BUN Creatinine Glucose POC Glucose 151 H 145 H Lactic Acid Calcium Phosphorus Magnesium AST ALT Lactate Dehydrogenase CK-MB (CK-2) C-Reactive Protein NT-Pro-B Natriuret Pep Total Protein Albumin Arterial Blood Glucose Urine WBC (Auto) 12/21/19 12/22/19 12/22/19 17:16 00:01 01:33 WBC RBC Hgb Hct MCHC RDW MCV MCH Lymph % (Auto) Coleman % (Auto) Coleman # Eos # Lymph # (Auto) Coleman # (Auto) Eos # (Auto) Seg Neutrophils % Seg Neuts % (Manual) Baso # (Auto) Lymphocytes % (Manual) Monocytes % (Manual) Eosinophils % (Manual) Basophils % (Manual) Seg Neutrophils # Seg Neutrophils # Man Lymphocytes # (Manual) Monocytes # (Manual) Eosinophils # (Manual) Nucleated RBC % Basophils # (Manual) APTT Heparin Anti-Xa Level 0.10 L ABG pH POC ABG pO2 ABG pO2 ABG HCO3 ABG O2 Saturation ABG Base Excess POC ABG pCO2 ABG Hemoglobin ABG Oxyhemoglobin ABG Glucose Oxyhemoglobin Sodium Potassium Chloride Carbon Dioxide BUN Creatinine Glucose POC Glucose 167 H 179 H Lactic Acid Calcium Phosphorus Magnesium AST ALT Lactate Dehydrogenase CK-MB (CK-2) C-Reactive Protein NT-Pro-B Natriuret Pep Total Protein Albumin Arterial Blood Glucose Urine WBC (Auto) 12/22/19 12/22/19 12/22/19 03:22 05:10 05:10 WBC 13.8 H RBC 3.20 L Hgb 8.9 L Hct 28.1 L MCHC RDW 15.9 H MCV MCH Lymph % (Auto) Coleman % (Auto) Coleman # Eos # Lymph # (Auto) Coleman # (Auto) Eos # (Auto) Seg Neutrophils % Seg Neuts % (Manual) Baso # (Auto) Lymphocytes % (Manual) Monocytes % (Manual) Eosinophils % (Manual) Basophils % (Manual) Seg Neutrophils # Seg Neutrophils # Man Lymphocytes # (Manual) Monocytes # (Manual) Eosinophils # (Manual) Nucleated RBC % Basophils # (Manual) APTT Heparin Anti-Xa Level ABG pH POC ABG pO2 52.3 L ABG pO2 ABG HCO3 ABG O2 Saturation ABG Base Excess POC ABG pCO2 52.9 H ABG Hemoglobin 10.7 L ABG Oxyhemoglobin 84 L ABG Glucose Oxyhemoglobin Sodium Potassium Chloride 96.6 L Carbon Dioxide BUN 25 H Creatinine 0.7 L Glucose 129 H POC Glucose Lactic Acid Calcium Phosphorus Magnesium AST ALT Lactate Dehydrogenase CK-MB (CK-2) C-Reactive Protein NT-Pro-B Natriuret Pep Total Protein Albumin Arterial Blood Glucose Urine WBC (Auto) 12/22/19 12/22/19 12/22/19 05:18 12:32 12:43 WBC RBC Hgb Hct MCHC RDW MCV MCH Lymph % (Auto) Coleman % (Auto) Coleman # Eos # Lymph # (Auto) Coleman # (Auto) Eos # (Auto) Seg Neutrophils % Seg Neuts % (Manual) Baso # (Auto) Lymphocytes % (Manual) Monocytes % (Manual) Eosinophils % (Manual) Basophils % (Manual) Seg Neutrophils # Seg Neutrophils # Man Lymphocytes # (Manual) Monocytes # (Manual) Eosinophils # (Manual) Nucleated RBC % Basophils # (Manual) APTT Heparin Anti-Xa Level 0.18 L ABG pH POC ABG pO2 ABG pO2 ABG HCO3 ABG O2 Saturation ABG Base Excess POC ABG pCO2 ABG Hemoglobin ABG Oxyhemoglobin ABG Glucose Oxyhemoglobin Sodium Potassium Chloride Carbon Dioxide BUN Creatinine Glucose POC Glucose 131 H 208 H Lactic Acid Calcium Phosphorus Magnesium AST ALT Lactate Dehydrogenase CK-MB (CK-2) C-Reactive Protein NT-Pro-B Natriuret Pep Total Protein Albumin Arterial Blood Glucose Urine WBC (Auto) 12/22/19 12/22/19 12/23/19 17:44 23:20 03:51 WBC 15.2 H RBC 3.43 L Hgb 9.6 L Hct 30.3 L MCHC RDW 15.9 H MCV MCH Lymph % (Auto) Coleman % (Auto) Coleman # Eos # Lymph # (Auto) Coleman # (Auto) Eos # (Auto) Seg Neutrophils % Seg Neuts % (Manual) Baso # (Auto) Lymphocytes % (Manual) Monocytes % (Manual) Eosinophils % (Manual) Basophils % (Manual) Seg Neutrophils # Seg Neutrophils # Man Lymphocytes # (Manual) Monocytes # (Manual) Eosinophils # (Manual) Nucleated RBC % Basophils # (Manual) APTT Heparin Anti-Xa Level ABG pH POC ABG pO2 ABG pO2 ABG HCO3 ABG O2 Saturation ABG Base Excess POC ABG pCO2 ABG Hemoglobin ABG Oxyhemoglobin ABG Glucose Oxyhemoglobin Sodium Potassium Chloride Carbon Dioxide BUN Creatinine Glucose POC Glucose 209 H 119 H Lactic Acid Calcium Phosphorus Magnesium AST ALT Lactate Dehydrogenase CK-MB (CK-2) C-Reactive Protein NT-Pro-B Natriuret Pep Total Protein Albumin Arterial Blood Glucose Urine WBC (Auto) 12/23/19 12/23/19 12/23/19 03:51 05:31 12:09 WBC RBC Hgb Hct MCHC RDW MCV MCH Lymph % (Auto) Coleman % (Auto) Coleman # Eos # Lymph # (Auto) Coleman # (Auto) Eos # (Auto) Seg Neutrophils % Seg Neuts % (Manual) Baso # (Auto) Lymphocytes % (Manual) Monocytes % (Manual) Eosinophils % (Manual) Basophils % (Manual) Seg Neutrophils # Seg Neutrophils # Man Lymphocytes # (Manual) Monocytes # (Manual) Eosinophils # (Manual) Nucleated RBC % Basophils # (Manual) APTT Heparin Anti-Xa Level ABG pH POC ABG pO2 ABG pO2 ABG HCO3 ABG O2 Saturation ABG Base Excess POC ABG pCO2 ABG Hemoglobin ABG Oxyhemoglobin ABG Glucose Oxyhemoglobin Sodium Potassium Chloride 97.2 L Carbon Dioxide 31 H BUN 23 H Creatinine 0.6 L Glucose 153 H POC Glucose 149 H 144 H Lactic Acid Calcium Phosphorus Magnesium AST ALT Lactate Dehydrogenase CK-MB (CK-2) C-Reactive Protein NT-Pro-B Natriuret Pep Total Protein Albumin Arterial Blood Glucose Urine WBC (Auto) 12/23/19 12/23/19 12/23/19 15:30 17:49 23:31 WBC RBC Hgb Hct MCHC RDW MCV MCH Lymph % (Auto) Coleman % (Auto) Coleman # Eos # Lymph # (Auto) Coleman # (Auto) Eos # (Auto) Seg Neutrophils % Seg Neuts % (Manual) Baso # (Auto) Lymphocytes % (Manual) Monocytes % (Manual) Eosinophils % (Manual) Basophils % (Manual) Seg Neutrophils # Seg Neutrophils # Man Lymphocytes # (Manual) Monocytes # (Manual) Eosinophils # (Manual) Nucleated RBC % Basophils # (Manual) APTT Heparin Anti-Xa Level 0.21 L ABG pH POC ABG pO2 ABG pO2 ABG HCO3 ABG O2 Saturation ABG Base Excess POC ABG pCO2 ABG Hemoglobin ABG Oxyhemoglobin ABG Glucose Oxyhemoglobin Sodium Potassium Chloride Carbon Dioxide BUN Creatinine Glucose POC Glucose 192 H 151 H Lactic Acid Calcium Phosphorus Magnesium AST ALT Lactate Dehydrogenase CK-MB (CK-2) C-Reactive Protein NT-Pro-B Natriuret Pep Total Protein Albumin Arterial Blood Glucose Urine WBC (Auto) 12/24/19 12/24/19 12/24/19 05:34 12:13 16:50 WBC RBC Hgb Hct MCHC RDW MCV MCH Lymph % (Auto) Coleman % (Auto) Coleman # Eos # Lymph # (Auto) Coleman # (Auto) Eos # (Auto) Seg Neutrophils % Seg Neuts % (Manual) Baso # (Auto) Lymphocytes % (Manual) Monocytes % (Manual) Eosinophils % (Manual) Basophils % (Manual) Seg Neutrophils # Seg Neutrophils # Man Lymphocytes # (Manual) Monocytes # (Manual) Eosinophils # (Manual) Nucleated RBC % Basophils # (Manual) APTT Heparin Anti-Xa Level 0.16 L ABG pH POC ABG pO2 ABG pO2 ABG HCO3 ABG O2 Saturation ABG Base Excess POC ABG pCO2 ABG Hemoglobin ABG Oxyhemoglobin ABG Glucose Oxyhemoglobin Sodium Potassium Chloride Carbon Dioxide BUN Creatinine Glucose POC Glucose 145 H 124 H Lactic Acid Calcium Phosphorus Magnesium AST ALT Lactate Dehydrogenase CK-MB (CK-2) C-Reactive Protein NT-Pro-B Natriuret Pep Total Protein Albumin Arterial Blood Glucose Urine WBC (Auto) 12/24/19 12/25/19 12/25/19 17:53 00:14 04:18 WBC 12.9 H RBC 3.30 L Hgb 9.1 L Hct 28.8 L MCHC RDW 16.4 H MCV MCH Lymph % (Auto) Coleman % (Auto) 7.8 H Coleman # Eos # Lymph # (Auto) Coleman # (Auto) 1.0 H Eos # (Auto) Seg Neutrophils % 75.5 H Seg Neuts % (Manual) Baso # (Auto) Lymphocytes % (Manual) Monocytes % (Manual) Eosinophils % (Manual) Basophils % (Manual) Seg Neutrophils # 9.7 H Seg Neutrophils # Man Lymphocytes # (Manual) Monocytes # (Manual) Eosinophils # (Manual) Nucleated RBC % Basophils # (Manual) APTT Heparin Anti-Xa Level ABG pH POC ABG pO2 ABG pO2 ABG HCO3 ABG O2 Saturation ABG Base Excess POC ABG pCO2 ABG Hemoglobin ABG Oxyhemoglobin ABG Glucose Oxyhemoglobin Sodium Potassium Chloride Carbon Dioxide BUN Creatinine Glucose POC Glucose 164 H 148 H Lactic Acid Calcium Phosphorus Magnesium AST ALT Lactate Dehydrogenase CK-MB (CK-2) C-Reactive Protein NT-Pro-B Natriuret Pep Total Protein Albumin Arterial Blood Glucose Urine WBC (Auto) 12/25/19 12/25/19 12/25/19 04:18 05:38 11:44 WBC RBC Hgb Hct MCHC RDW MCV MCH Lymph % (Auto) Coleman % (Auto) Coleman # Eos # Lymph # (Auto) Coleman # (Auto) Eos # (Auto) Seg Neutrophils % Seg Neuts % (Manual) Baso # (Auto) Lymphocytes % (Manual) Monocytes % (Manual) Eosinophils % (Manual) Basophils % (Manual) Seg Neutrophils # Seg Neutrophils # Man Lymphocytes # (Manual) Monocytes # (Manual) Eosinophils # (Manual) Nucleated RBC % Basophils # (Manual) APTT Heparin Anti-Xa Level ABG pH POC ABG pO2 ABG pO2 ABG HCO3 ABG O2 Saturation ABG Base Excess POC ABG pCO2 ABG Hemoglobin ABG Oxyhemoglobin ABG Glucose Oxyhemoglobin Sodium Potassium Chloride Carbon Dioxide 33 H BUN 27 H Creatinine 0.6 L Glucose 132 H POC Glucose 152 H 166 H Lactic Acid Calcium Phosphorus Magnesium AST ALT Lactate Dehydrogenase CK-MB (CK-2) C-Reactive Protein NT-Pro-B Natriuret Pep Total Protein Albumin Arterial Blood Glucose Urine WBC (Auto) 12/25/19 12/26/19 12/26/19 18:29 00:17 00:18 WBC RBC Hgb Hct MCHC RDW MCV MCH Lymph % (Auto) Coleman % (Auto) Coleman # Eos # Lymph # (Auto) Coleman # (Auto) Eos # (Auto) Seg Neutrophils % Seg Neuts % (Manual) Baso # (Auto) Lymphocytes % (Manual) Monocytes % (Manual) Eosinophils % (Manual) Basophils % (Manual) Seg Neutrophils # Seg Neutrophils # Man Lymphocytes # (Manual) Monocytes # (Manual) Eosinophils # (Manual) Nucleated RBC % Basophils # (Manual) APTT Heparin Anti-Xa Level ABG pH POC ABG pO2 ABG pO2 ABG HCO3 ABG O2 Saturation ABG Base Excess POC ABG pCO2 ABG Hemoglobin ABG Oxyhemoglobin ABG Glucose Oxyhemoglobin Sodium Potassium Chloride 97.8 L Carbon Dioxide BUN 25 H Creatinine 0.6 L Glucose 140 H POC Glucose 194 H 151 H Lactic Acid Calcium Phosphorus Magnesium AST ALT Lactate Dehydrogenase CK-MB (CK-2) C-Reactive Protein NT-Pro-B Natriuret Pep Total Protein Albumin Arterial Blood Glucose Urine WBC (Auto) 12/26/19 12/26/19 12/26/19 05:36 11:41 17:50 WBC RBC Hgb Hct MCHC RDW MCV MCH Lymph % (Auto) Coleman % (Auto) Coleman # Eos # Lymph # (Auto) Coleman # (Auto) Eos # (Auto) Seg Neutrophils % Seg Neuts % (Manual) Baso # (Auto) Lymphocytes % (Manual) Monocytes % (Manual) Eosinophils % (Manual) Basophils % (Manual) Seg Neutrophils # Seg Neutrophils # Man Lymphocytes # (Manual) Monocytes # (Manual) Eosinophils # (Manual) Nucleated RBC % Basophils # (Manual) APTT Heparin Anti-Xa Level ABG pH POC ABG pO2 ABG pO2 ABG HCO3 ABG O2 Saturation ABG Base Excess POC ABG pCO2 ABG Hemoglobin ABG Oxyhemoglobin ABG Glucose Oxyhemoglobin Sodium Potassium Chloride Carbon Dioxide BUN Creatinine Glucose POC Glucose 156 H 148 H 139 H Lactic Acid Calcium Phosphorus Magnesium AST ALT Lactate Dehydrogenase CK-MB (CK-2) C-Reactive Protein NT-Pro-B Natriuret Pep Total Protein Albumin Arterial Blood Glucose Urine WBC (Auto) 12/26/19 12/27/19 12/27/19 23:19 05:34 12:02 WBC RBC Hgb Hct MCHC RDW MCV MCH Lymph % (Auto) Coleman % (Auto) Coleman # Eos # Lymph # (Auto) Coleman # (Auto) Eos # (Auto) Seg Neutrophils % Seg Neuts % (Manual) Baso # (Auto) Lymphocytes % (Manual) Monocytes % (Manual) Eosinophils % (Manual) Basophils % (Manual) Seg Neutrophils # Seg Neutrophils # Man Lymphocytes # (Manual) Monocytes # (Manual) Eosinophils # (Manual) Nucleated RBC % Basophils # (Manual) APTT Heparin Anti-Xa Level ABG pH POC ABG pO2 ABG pO2 ABG HCO3 ABG O2 Saturation ABG Base Excess POC ABG pCO2 ABG Hemoglobin ABG Oxyhemoglobin ABG Glucose Oxyhemoglobin Sodium Potassium Chloride Carbon Dioxide BUN Creatinine Glucose POC Glucose 161 H 145 H 157 H Lactic Acid Calcium Phosphorus Magnesium AST ALT Lactate Dehydrogenase CK-MB (CK-2) C-Reactive Protein NT-Pro-B Natriuret Pep Total Protein Albumin Arterial Blood Glucose Urine WBC (Auto) 12/27/19 12/27/19 12/27/19 17:35 20:11 23:00 WBC RBC Hgb Hct MCHC RDW MCV MCH Lymph % (Auto) Coleman % (Auto) Coleman # Eos # Lymph # (Auto) Coleman # (Auto) Eos # (Auto) Seg Neutrophils % Seg Neuts % (Manual) Baso # (Auto) Lymphocytes % (Manual) Monocytes % (Manual) Eosinophils % (Manual) Basophils % (Manual) Seg Neutrophils # Seg Neutrophils # Man Lymphocytes # (Manual) Monocytes # (Manual) Eosinophils # (Manual) Nucleated RBC % Basophils # (Manual) APTT Heparin Anti-Xa Level 0.19 L ABG pH POC ABG pO2 ABG pO2 ABG HCO3 ABG O2 Saturation ABG Base Excess POC ABG pCO2 ABG Hemoglobin ABG Oxyhemoglobin ABG Glucose Oxyhemoglobin Sodium Potassium Chloride Carbon Dioxide BUN Creatinine Glucose POC Glucose 158 H 155 H Lactic Acid Calcium Phosphorus Magnesium AST ALT Lactate Dehydrogenase CK-MB (CK-2) C-Reactive Protein NT-Pro-B Natriuret Pep Total Protein Albumin Arterial Blood Glucose Urine WBC (Auto) 12/27/19 12/28/19 12/28/19 23:45 02:41 02:41 WBC 13.0 H RBC 3.48 L Hgb 9.5 L Hct 30.6 L MCHC 31 L RDW 16.6 H MCV MCH 27 L Lymph % (Auto) 13.0 L Coleman % (Auto) 8.0 H Coleman # Eos # Lymph # (Auto) Coleman # (Auto) 1.0 H Eos # (Auto) Seg Neutrophils % 76.3 H Seg Neuts % (Manual) Baso # (Auto) Lymphocytes % (Manual) Monocytes % (Manual) Eosinophils % (Manual) Basophils % (Manual) Seg Neutrophils # 9.9 H Seg Neutrophils # Man Lymphocytes # (Manual) Monocytes # (Manual) Eosinophils # (Manual) Nucleated RBC % Basophils # (Manual) APTT Heparin Anti-Xa Level ABG pH POC ABG pO2 ABG pO2 ABG HCO3 ABG O2 Saturation ABG Base Excess POC ABG pCO2 ABG Hemoglobin ABG Oxyhemoglobin ABG Glucose Oxyhemoglobin Sodium Potassium Chloride Carbon Dioxide BUN 22 H Creatinine 0.6 L Glucose 101 H POC Glucose 130 H Lactic Acid Calcium Phosphorus Magnesium AST ALT Lactate Dehydrogenase CK-MB (CK-2) C-Reactive Protein NT-Pro-B Natriuret Pep Total Protein Albumin Arterial Blood Glucose Urine WBC (Auto) 12/28/19 12/28/19 12/28/19 06:00 12:34 18:13 WBC RBC Hgb Hct MCHC RDW MCV MCH Lymph % (Auto) Coleman % (Auto) Coleman # Eos # Lymph # (Auto) Coleman # (Auto) Eos # (Auto) Seg Neutrophils % Seg Neuts % (Manual) Baso # (Auto) Lymphocytes % (Manual) Monocytes % (Manual) Eosinophils % (Manual) Basophils % (Manual) Seg Neutrophils # Seg Neutrophils # Man Lymphocytes # (Manual) Monocytes # (Manual) Eosinophils # (Manual) Nucleated RBC % Basophils # (Manual) APTT Heparin Anti-Xa Level ABG pH POC ABG pO2 ABG pO2 ABG HCO3 ABG O2 Saturation ABG Base Excess POC ABG pCO2 ABG Hemoglobin ABG Oxyhemoglobin ABG Glucose Oxyhemoglobin Sodium Potassium Chloride Carbon Dioxide BUN Creatinine Glucose POC Glucose 150 H 161 H 128 H Lactic Acid Calcium Phosphorus Magnesium AST ALT Lactate Dehydrogenase CK-MB (CK-2) C-Reactive Protein NT-Pro-B Natriuret Pep Total Protein Albumin Arterial Blood Glucose Urine WBC (Auto) 12/28/19 12/29/19 12/29/19 23:36 05:21 11:40 WBC RBC Hgb Hct MCHC RDW MCV MCH Lymph % (Auto) Coleman % (Auto) Coleman # Eos # Lymph # (Auto) Coleman # (Auto) Eos # (Auto) Seg Neutrophils % Seg Neuts % (Manual) Baso # (Auto) Lymphocytes % (Manual) Monocytes % (Manual) Eosinophils % (Manual) Basophils % (Manual) Seg Neutrophils # Seg Neutrophils # Man Lymphocytes # (Manual) Monocytes # (Manual) Eosinophils # (Manual) Nucleated RBC % Basophils # (Manual) APTT Heparin Anti-Xa Level ABG pH POC ABG pO2 ABG pO2 ABG HCO3 ABG O2 Saturation ABG Base Excess POC ABG pCO2 ABG Hemoglobin ABG Oxyhemoglobin ABG Glucose Oxyhemoglobin Sodium Potassium Chloride Carbon Dioxide BUN Creatinine Glucose POC Glucose 137 H 136 H 166 H Lactic Acid Calcium Phosphorus Magnesium AST ALT Lactate Dehydrogenase CK-MB (CK-2) C-Reactive Protein NT-Pro-B Natriuret Pep Total Protein Albumin Arterial Blood Glucose Urine WBC (Auto) 12/29/19 12/29/19 12/29/19 17:23 19:21 23:38 WBC RBC Hgb Hct MCHC RDW MCV MCH Lymph % (Auto) Coleman % (Auto) Coleman # Eos # Lymph # (Auto) Coleman # (Auto) Eos # (Auto) Seg Neutrophils % Seg Neuts % (Manual) Baso # (Auto) Lymphocytes % (Manual) Monocytes % (Manual) Eosinophils % (Manual) Basophils % (Manual) Seg Neutrophils # Seg Neutrophils # Man Lymphocytes # (Manual) Monocytes # (Manual) Eosinophils # (Manual) Nucleated RBC % Basophils # (Manual) APTT Heparin Anti-Xa Level 0.20 L ABG pH POC ABG pO2 ABG pO2 ABG HCO3 ABG O2 Saturation ABG Base Excess POC ABG pCO2 ABG Hemoglobin ABG Oxyhemoglobin ABG Glucose Oxyhemoglobin Sodium Potassium Chloride Carbon Dioxide BUN Creatinine Glucose POC Glucose 144 H 141 H Lactic Acid Calcium Phosphorus Magnesium AST ALT Lactate Dehydrogenase CK-MB (CK-2) C-Reactive Protein NT-Pro-B Natriuret Pep Total Protein Albumin Arterial Blood Glucose Urine WBC (Auto) 12/30/19 12/30/19 12/30/19 03:58 03:58 04:59 WBC RBC 3.54 L Hgb 9.8 L Hct 30.7 L MCHC RDW 16.8 H MCV MCH Lymph % (Auto) Coleman % (Auto) Coleman # Eos # Lymph # (Auto) Coleman # (Auto) Eos # (Auto) Seg Neutrophils % Seg Neuts % (Manual) Baso # (Auto) Lymphocytes % (Manual) Monocytes % (Manual) Eosinophils % (Manual) Basophils % (Manual) Seg Neutrophils # Seg Neutrophils # Man Lymphocytes # (Manual) Monocytes # (Manual) Eosinophils # (Manual) Nucleated RBC % Basophils # (Manual) APTT Heparin Anti-Xa Level ABG pH POC ABG pO2 ABG pO2 ABG HCO3 29.8 H ABG O2 Saturation ABG Base Excess 4.8 H POC ABG pCO2 ABG Hemoglobin 11.2 L ABG Oxyhemoglobin ABG Glucose Oxyhemoglobin 93.8 L Sodium Potassium Chloride 97.8 L Carbon Dioxide BUN 26 H Creatinine Glucose 168 H POC Glucose Lactic Acid Calcium Phosphorus Magnesium AST ALT Lactate Dehydrogenase CK-MB (CK-2) C-Reactive Protein NT-Pro-B Natriuret Pep Total Protein Albumin Arterial Blood Glucose Urine WBC (Auto) 12/30/19 12/30/19 12/30/19 05:45 11:34 17:28 WBC RBC Hgb Hct MCHC RDW MCV MCH Lymph % (Auto) Coleman % (Auto) Coleman # Eos # Lymph # (Auto) Coleman # (Auto) Eos # (Auto) Seg Neutrophils % Seg Neuts % (Manual) Baso # (Auto) Lymphocytes % (Manual) Monocytes % (Manual) Eosinophils % (Manual) Basophils % (Manual) Seg Neutrophils # Seg Neutrophils # Man Lymphocytes # (Manual) Monocytes # (Manual) Eosinophils # (Manual) Nucleated RBC % Basophils # (Manual) APTT Heparin Anti-Xa Level ABG pH POC ABG pO2 ABG pO2 ABG HCO3 ABG O2 Saturation ABG Base Excess POC ABG pCO2 ABG Hemoglobin ABG Oxyhemoglobin ABG Glucose Oxyhemoglobin Sodium Potassium Chloride Carbon Dioxide BUN Creatinine Glucose POC Glucose 163 H 180 H 150 H Lactic Acid Calcium Phosphorus Magnesium AST ALT Lactate Dehydrogenase CK-MB (CK-2) C-Reactive Protein NT-Pro-B Natriuret Pep Total Protein Albumin Arterial Blood Glucose Urine WBC (Auto) 12/30/19 12/31/19 12/31/19 23:43 04:55 05:07 WBC RBC Hgb Hct MCHC RDW MCV MCH Lymph % (Auto) Coleman % (Auto) Coleman # Eos # Lymph # (Auto) Coleman # (Auto) Eos # (Auto) Seg Neutrophils % Seg Neuts % (Manual) Baso # (Auto) Lymphocytes % (Manual) Monocytes % (Manual) Eosinophils % (Manual) Basophils % (Manual) Seg Neutrophils # Seg Neutrophils # Man Lymphocytes # (Manual) Monocytes # (Manual) Eosinophils # (Manual) Nucleated RBC % Basophils # (Manual) APTT Heparin Anti-Xa Level ABG pH POC ABG pO2 ABG pO2 ABG HCO3 ABG O2 Saturation ABG Base Excess POC ABG pCO2 ABG Hemoglobin ABG Oxyhemoglobin ABG Glucose Oxyhemoglobin Sodium Potassium 5.6 H D Chloride Carbon Dioxide BUN 33 H Creatinine Glucose 131 H POC Glucose 142 H 134 H Lactic Acid Calcium Phosphorus Magnesium AST ALT Lactate Dehydrogenase CK-MB (CK-2) C-Reactive Protein NT-Pro-B Natriuret Pep Total Protein Albumin Arterial Blood Glucose Urine WBC (Auto) 12/31/19 12/31/19 12/31/19 11:30 17:19 17:36 WBC RBC Hgb Hct MCHC RDW MCV MCH Lymph % (Auto) Coleman % (Auto) Coleman # Eos # Lymph # (Auto) Coleman # (Auto) Eos # (Auto) Seg Neutrophils % Seg Neuts % (Manual) Baso # (Auto) Lymphocytes % (Manual) Monocytes % (Manual) Eosinophils % (Manual) Basophils % (Manual) Seg Neutrophils # Seg Neutrophils # Man Lymphocytes # (Manual) Monocytes # (Manual) Eosinophils # (Manual) Nucleated RBC % Basophils # (Manual) APTT Heparin Anti-Xa Level ABG pH POC ABG pO2 ABG pO2 ABG HCO3 ABG O2 Saturation ABG Base Excess POC ABG pCO2 ABG Hemoglobin ABG Oxyhemoglobin ABG Glucose Oxyhemoglobin Sodium Potassium Chloride Carbon Dioxide BUN 35 H Creatinine Glucose 156 H POC Glucose 158 H 181 H Lactic Acid Calcium Phosphorus Magnesium AST ALT Lactate Dehydrogenase CK-MB (CK-2) C-Reactive Protein NT-Pro-B Natriuret Pep Total Protein Albumin Arterial Blood Glucose Urine WBC (Auto) 12/31/19 12/31/19 12/31/19 18:16 19:41 21:53 WBC RBC Hgb Hct MCHC RDW MCV MCH Lymph % (Auto) Coleman % (Auto) Coleman # Eos # Lymph # (Auto) Coleman # (Auto) Eos # (Auto) Seg Neutrophils % Seg Neuts % (Manual) Baso # (Auto) Lymphocytes % (Manual) Monocytes % (Manual) Eosinophils % (Manual) Basophils % (Manual) Seg Neutrophils # Seg Neutrophils # Man Lymphocytes # (Manual) Monocytes # (Manual) Eosinophils # (Manual) Nucleated RBC % Basophils # (Manual) APTT Heparin Anti-Xa Level 0.20 L ABG pH POC ABG pO2 ABG pO2 ABG HCO3 ABG O2 Saturation ABG Base Excess POC ABG pCO2 ABG Hemoglobin ABG Oxyhemoglobin ABG Glucose Oxyhemoglobin Sodium Potassium Chloride Carbon Dioxide BUN 34 H Creatinine Glucose 169 H POC Glucose 141 H Lactic Acid Calcium Phosphorus Magnesium AST ALT Lactate Dehydrogenase CK-MB (CK-2) C-Reactive Protein NT-Pro-B Natriuret Pep Total Protein Albumin Arterial Blood Glucose Urine WBC (Auto) 12/31/19 01/01/20 01/01/20 23:51 05:17 10:40 WBC RBC Hgb Hct MCHC RDW MCV MCH Lymph % (Auto) Coleman % (Auto) Coleman # Eos # Lymph # (Auto) Coleman # (Auto) Eos # (Auto) Seg Neutrophils % Seg Neuts % (Manual) Baso # (Auto) Lymphocytes % (Manual) Monocytes % (Manual) Eosinophils % (Manual) Basophils % (Manual) Seg Neutrophils # Seg Neutrophils # Man Lymphocytes # (Manual) Monocytes # (Manual) Eosinophils # (Manual) Nucleated RBC % Basophils # (Manual) APTT Heparin Anti-Xa Level ABG pH POC ABG pO2 ABG pO2 ABG HCO3 ABG O2 Saturation ABG Base Excess POC ABG pCO2 ABG Hemoglobin ABG Oxyhemoglobin ABG Glucose Oxyhemoglobin Sodium Potassium Chloride Carbon Dioxide BUN 31 H Creatinine 0.7 L Glucose 137 H POC Glucose 131 H 155 H Lactic Acid Calcium Phosphorus Magnesium AST 73 H ALT 97 H Lactate Dehydrogenase CK-MB (CK-2) C-Reactive Protein NT-Pro-B Natriuret Pep 3866 H Total Protein Albumin 2.8 L Arterial Blood Glucose Urine WBC (Auto) 01/01/20 01/01/20 01/01/20 12:26 15:33 17:53 WBC 14.3 H RBC 3.35 L Hgb 9.1 L Hct 28.8 L MCHC RDW 17.0 H MCV MCH 27 L Lymph % (Auto) 7.0 L Coleman % (Auto) 7.6 H Coleman # Eos # Lymph # (Auto) 1.0 L Coleman # (Auto) 1.1 H Eos # (Auto) Seg Neutrophils % 83.3 H Seg Neuts % (Manual) Baso # (Auto) Lymphocytes % (Manual) Monocytes % (Manual) Eosinophils % (Manual) Basophils % (Manual) Seg Neutrophils # 12.0 H Seg Neutrophils # Man Lymphocytes # (Manual) Monocytes # (Manual) Eosinophils # (Manual) Nucleated RBC % Basophils # (Manual) APTT Heparin Anti-Xa Level ABG pH POC ABG pO2 ABG pO2 ABG HCO3 ABG O2 Saturation ABG Base Excess POC ABG pCO2 ABG Hemoglobin ABG Oxyhemoglobin ABG Glucose Oxyhemoglobin Sodium Potassium Chloride Carbon Dioxide BUN Creatinine Glucose POC Glucose 128 H 128 H Lactic Acid Calcium Phosphorus Magnesium AST ALT Lactate Dehydrogenase CK-MB (CK-2) C-Reactive Protein NT-Pro-B Natriuret Pep Total Protein Albumin Arterial Blood Glucose Urine WBC (Auto) 01/01/20 01/02/20 01/02/20 23:04 05:39 07:00 WBC RBC Hgb Hct MCHC RDW MCV MCH Lymph % (Auto) Coleman % (Auto) Coleman # Eos # Lymph # (Auto) Coleman # (Auto) Eos # (Auto) Seg Neutrophils % Seg Neuts % (Manual) Baso # (Auto) Lymphocytes % (Manual) Monocytes % (Manual) Eosinophils % (Manual) Basophils % (Manual) Seg Neutrophils # Seg Neutrophils # Man Lymphocytes # (Manual) Monocytes # (Manual) Eosinophils # (Manual) Nucleated RBC % Basophils # (Manual) APTT Heparin Anti-Xa Level 0.13 L ABG pH POC ABG pO2 ABG pO2 ABG HCO3 ABG O2 Saturation ABG Base Excess POC ABG pCO2 ABG Hemoglobin ABG Oxyhemoglobin ABG Glucose Oxyhemoglobin Sodium Potassium Chloride Carbon Dioxide BUN Creatinine Glucose POC Glucose 120 H 169 H Lactic Acid Calcium Phosphorus Magnesium AST ALT Lactate Dehydrogenase CK-MB (CK-2) C-Reactive Protein NT-Pro-B Natriuret Pep Total Protein Albumin Arterial Blood Glucose Urine WBC (Auto) 01/02/20 01/02/20 01/02/20 12:15 14:06 17:58 WBC RBC Hgb Hct MCHC RDW MCV MCH Lymph % (Auto) Coleman % (Auto) Coleman # Eos # Lymph # (Auto) Coleman # (Auto) Eos # (Auto) Seg Neutrophils % Seg Neuts % (Manual) Baso # (Auto) Lymphocytes % (Manual) Monocytes % (Manual) Eosinophils % (Manual) Basophils % (Manual) Seg Neutrophils # Seg Neutrophils # Man Lymphocytes # (Manual) Monocytes # (Manual) Eosinophils # (Manual) Nucleated RBC % Basophils # (Manual) APTT Heparin Anti-Xa Level < 0.10 L ABG pH POC ABG pO2 ABG pO2 ABG HCO3 ABG O2 Saturation ABG Base Excess POC ABG pCO2 ABG Hemoglobin ABG Oxyhemoglobin ABG Glucose Oxyhemoglobin Sodium Potassium Chloride Carbon Dioxide BUN Creatinine Glucose POC Glucose 190 H 198 H Lactic Acid Calcium Phosphorus Magnesium AST ALT Lactate Dehydrogenase CK-MB (CK-2) C-Reactive Protein NT-Pro-B Natriuret Pep Total Protein Albumin Arterial Blood Glucose Urine WBC (Auto) 01/02/20 01/02/20 01/03/20 21:43 23:33 05:42 WBC RBC Hgb Hct MCHC RDW MCV MCH Lymph % (Auto) Coleman % (Auto) Coleman # Eos # Lymph # (Auto) Coleman # (Auto) Eos # (Auto) Seg Neutrophils % Seg Neuts % (Manual) Baso # (Auto) Lymphocytes % (Manual) Monocytes % (Manual) Eosinophils % (Manual) Basophils % (Manual) Seg Neutrophils # Seg Neutrophils # Man Lymphocytes # (Manual) Monocytes # (Manual) Eosinophils # (Manual) Nucleated RBC % Basophils # (Manual) APTT Heparin Anti-Xa Level 0.10 L ABG pH POC ABG pO2 ABG pO2 ABG HCO3 ABG O2 Saturation ABG Base Excess POC ABG pCO2 ABG Hemoglobin ABG Oxyhemoglobin ABG Glucose Oxyhemoglobin Sodium Potassium Chloride Carbon Dioxide BUN Creatinine Glucose POC Glucose 180 H 163 H Lactic Acid Calcium Phosphorus Magnesium AST ALT Lactate Dehydrogenase CK-MB (CK-2) C-Reactive Protein NT-Pro-B Natriuret Pep Total Protein Albumin Arterial Blood Glucose Urine WBC (Auto) 01/03/20 01/03/20 01/03/20 06:50 07:25 07:45 WBC 12.1 H RBC 3.35 L Hgb 9.0 L Hct 28.9 L MCHC 31 L RDW 16.6 H MCV MCH 27 L Lymph % (Auto) 13.0 L Coleman % (Auto) 8.6 H Coleman # Eos # Lymph # (Auto) Coleman # (Auto) 1.0 H Eos # (Auto) Seg Neutrophils % 75.9 H Seg Neuts % (Manual) Baso # (Auto) Lymphocytes % (Manual) Monocytes % (Manual) Eosinophils % (Manual) Basophils % (Manual) Seg Neutrophils # 9.2 H Seg Neutrophils # Man Lymphocytes # (Manual) Monocytes # (Manual) Eosinophils # (Manual) Nucleated RBC % Basophils # (Manual) APTT Heparin Anti-Xa Level 0.29 L ABG pH POC ABG pO2 ABG pO2 ABG HCO3 ABG O2 Saturation ABG Base Excess POC ABG pCO2 ABG Hemoglobin ABG Oxyhemoglobin ABG Glucose Oxyhemoglobin Sodium Potassium 3.3 L D Chloride Carbon Dioxide 35 H D BUN 23 H Creatinine 0.6 L Glucose 149 H POC Glucose Lactic Acid Calcium Phosphorus Magnesium AST ALT 88 H Lactate Dehydrogenase CK-MB (CK-2) C-Reactive Protein NT-Pro-B Natriuret Pep Total Protein 6.2 L Albumin 2.9 L Arterial Blood Glucose Urine WBC (Auto) 01/03/20 01/03/20 01/03/20 12:05 17:42 18:30 WBC RBC Hgb Hct MCHC RDW MCV MCH Lymph % (Auto) Coleman % (Auto) Coleman # Eos # Lymph # (Auto) Coleman # (Auto) Eos # (Auto) Seg Neutrophils % Seg Neuts % (Manual) Baso # (Auto) Lymphocytes % (Manual) Monocytes % (Manual) Eosinophils % (Manual) Basophils % (Manual) Seg Neutrophils # Seg Neutrophils # Man Lymphocytes # (Manual) Monocytes # (Manual) Eosinophils # (Manual) Nucleated RBC % Basophils # (Manual) APTT Heparin Anti-Xa Level ABG pH POC ABG pO2 ABG pO2 70.7 L ABG HCO3 36.1 H ABG O2 Saturation 94.4 L ABG Base Excess 10.0 H POC ABG pCO2 ABG Hemoglobin 9.7 L ABG Oxyhemoglobin ABG Glucose Oxyhemoglobin 91.8 L Sodium Potassium Chloride Carbon Dioxide BUN Creatinine Glucose POC Glucose 128 H 132 H Lactic Acid Calcium Phosphorus Magnesium AST ALT Lactate Dehydrogenase CK-MB (CK-2) C-Reactive Protein NT-Pro-B Natriuret Pep Total Protein Albumin Arterial Blood Glucose Urine WBC (Auto) 01/04/20 01/04/20 01/04/20 00:10 04:26 05:23 WBC RBC Hgb Hct MCHC RDW MCV MCH Lymph % (Auto) Coleman % (Auto) Coleman # Eos # Lymph # (Auto) Coleman # (Auto) Eos # (Auto) Seg Neutrophils % Seg Neuts % (Manual) Baso # (Auto) Lymphocytes % (Manual) Monocytes % (Manual) Eosinophils % (Manual) Basophils % (Manual) Seg Neutrophils # Seg Neutrophils # Man Lymphocytes # (Manual) Monocytes # (Manual) Eosinophils # (Manual) Nucleated RBC % Basophils # (Manual) APTT Heparin Anti-Xa Level 0.16 L ABG pH POC ABG pO2 ABG pO2 ABG HCO3 ABG O2 Saturation ABG Base Excess POC ABG pCO2 ABG Hemoglobin ABG Oxyhemoglobin ABG Glucose Oxyhemoglobin Sodium Potassium Chloride Carbon Dioxide BUN Creatinine Glucose POC Glucose 121 H 119 H Lactic Acid Calcium Phosphorus Magnesium AST ALT Lactate Dehydrogenase CK-MB (CK-2) C-Reactive Protein NT-Pro-B Natriuret Pep Total Protein Albumin Arterial Blood Glucose Urine WBC (Auto) 01/04/20 01/04/20 01/04/20 09:50 09:50 12:18 WBC 15.4 H RBC 3.30 L Hgb 8.7 L Hct 28.2 L MCHC 31 L RDW 17.0 H MCV MCH 26 L Lymph % (Auto) Coleman % (Auto) 7.6 H Coleman # Eos # Lymph # (Auto) Coleman # (Auto) 1.2 H Eos # (Auto) Seg Neutrophils % 75.4 H Seg Neuts % (Manual) Baso # (Auto) Lymphocytes % (Manual) Monocytes % (Manual) Eosinophils % (Manual) Basophils % (Manual) Seg Neutrophils # 11.6 H Seg Neutrophils # Man Lymphocytes # (Manual) Monocytes # (Manual) Eosinophils # (Manual) Nucleated RBC % Basophils # (Manual) APTT Heparin Anti-Xa Level ABG pH POC ABG pO2 ABG pO2 ABG HCO3 ABG O2 Saturation ABG Base Excess POC ABG pCO2 ABG Hemoglobin ABG Oxyhemoglobin ABG Glucose Oxyhemoglobin Sodium 148 H Potassium 3.5 L Chloride Carbon Dioxide 32 H BUN Creatinine 0.6 L Glucose 114 H POC Glucose 111 H Lactic Acid Calcium Phosphorus Magnesium AST ALT 59 H Lactate Dehydrogenase CK-MB (CK-2) C-Reactive Protein NT-Pro-B Natriuret Pep Total Protein Albumin 2.6 L Arterial Blood Glucose Urine WBC (Auto) 01/05/20 01/05/20 01/05/20 04:05 04:05 05:19 WBC 11.7 H RBC 3.50 L Hgb 9.3 L Hct 29.9 L MCHC 31 L RDW 16.6 H MCV MCH 27 L Lymph % (Auto) 13.1 L Coleman % (Auto) 9.7 H Coleman # Eos # Lymph # (Auto) Coleman # (Auto) 1.1 H Eos # (Auto) Seg Neutrophils % 74.0 H Seg Neuts % (Manual) Baso # (Auto) Lymphocytes % (Manual) Monocytes % (Manual) Eosinophils % (Manual) Basophils % (Manual) Seg Neutrophils # 8.6 H Seg Neutrophils # Man Lymphocytes # (Manual) Monocytes # (Manual) Eosinophils # (Manual) Nucleated RBC % Basophils # (Manual) APTT Heparin Anti-Xa Level ABG pH POC ABG pO2 ABG pO2 ABG HCO3 ABG O2 Saturation ABG Base Excess POC ABG pCO2 ABG Hemoglobin ABG Oxyhemoglobin ABG Glucose Oxyhemoglobin Sodium 151 H Potassium Chloride Carbon Dioxide 34 H BUN Creatinine 0.7 L Glucose POC Glucose 112 H Lactic Acid Calcium Phosphorus Magnesium AST ALT 59 H Lactate Dehydrogenase CK-MB (CK-2) C-Reactive Protein NT-Pro-B Natriuret Pep Total Protein 5.8 L Albumin 2.6 L Arterial Blood Glucose Urine WBC (Auto) 01/05/20 01/06/20 01/06/20 16:04 00:23 04:44 WBC RBC 3.36 L Hgb 8.9 L Hct 28.7 L MCHC 31 L RDW 16.9 H MCV MCH 26 L Lymph % (Auto) Coleman % (Auto) 9.4 H Coleman # Eos # Lymph # (Auto) Coleman # (Auto) Eos # (Auto) Seg Neutrophils % Seg Neuts % (Manual) Baso # (Auto) Lymphocytes % (Manual) Monocytes % (Manual) Eosinophils % (Manual) Basophils % (Manual) Seg Neutrophils # Seg Neutrophils # Man Lymphocytes # (Manual) Monocytes # (Manual) Eosinophils # (Manual) Nucleated RBC % Basophils # (Manual) APTT Heparin Anti-Xa Level ABG pH POC ABG pO2 ABG pO2 ABG HCO3 ABG O2 Saturation ABG Base Excess POC ABG pCO2 ABG Hemoglobin ABG Oxyhemoglobin ABG Glucose Oxyhemoglobin Sodium 151 H Potassium 3.2 L Chloride Carbon Dioxide 34 H BUN Creatinine 0.6 L Glucose POC Glucose 107 H Lactic Acid Calcium Phosphorus Magnesium AST ALT Lactate Dehydrogenase CK-MB (CK-2) C-Reactive Protein NT-Pro-B Natriuret Pep Total Protein Albumin Arterial Blood Glucose Urine WBC (Auto) 01/06/20 01/06/20 01/06/20 04:44 05:33 12:04 WBC RBC Hgb Hct MCHC RDW MCV MCH Lymph % (Auto) Coleman % (Auto) Coleman # Eos # Lymph # (Auto) Coleman # (Auto) Eos # (Auto) Seg Neutrophils % Seg Neuts % (Manual) Baso # (Auto) Lymphocytes % (Manual) Monocytes % (Manual) Eosinophils % (Manual) Basophils % (Manual) Seg Neutrophils # Seg Neutrophils # Man Lymphocytes # (Manual) Monocytes # (Manual) Eosinophils # (Manual) Nucleated RBC % Basophils # (Manual) APTT Heparin Anti-Xa Level ABG pH POC ABG pO2 ABG pO2 ABG HCO3 ABG O2 Saturation ABG Base Excess POC ABG pCO2 ABG Hemoglobin ABG Oxyhemoglobin ABG Glucose Oxyhemoglobin Sodium 151 H Potassium 3.4 L Chloride Carbon Dioxide 33 H BUN Creatinine 0.6 L Glucose 118 H POC Glucose 118 H 123 H Lactic Acid Calcium Phosphorus Magnesium AST ALT Lactate Dehydrogenase CK-MB (CK-2) C-Reactive Protein NT-Pro-B Natriuret Pep Total Protein 6.2 L Albumin 2.6 L Arterial Blood Glucose Urine WBC (Auto) 01/06/20 01/07/20 01/07/20 17:54 00:06 04:10 WBC RBC 3.42 L Hgb 8.9 L Hct 29.0 L MCHC 31 L RDW 17.1 H MCV MCH 26 L Lymph % (Auto) Coleman % (Auto) 8.4 H Coleman # Eos # Lymph # (Auto) Coleman # (Auto) Eos # (Auto) Seg Neutrophils % Seg Neuts % (Manual) Baso # (Auto) Lymphocytes % (Manual) Monocytes % (Manual) Eosinophils % (Manual) Basophils % (Manual) Seg Neutrophils # Seg Neutrophils # Man Lymphocytes # (Manual) Monocytes # (Manual) Eosinophils # (Manual) Nucleated RBC % Basophils # (Manual) APTT Heparin Anti-Xa Level ABG pH POC ABG pO2 ABG pO2 ABG HCO3 ABG O2 Saturation ABG Base Excess POC ABG pCO2 ABG Hemoglobin ABG Oxyhemoglobin ABG Glucose Oxyhemoglobin Sodium Potassium Chloride Carbon Dioxide BUN Creatinine Glucose POC Glucose 112 H 126 H Lactic Acid Calcium Phosphorus Magnesium AST ALT Lactate Dehydrogenase CK-MB (CK-2) C-Reactive Protein NT-Pro-B Natriuret Pep Total Protein Albumin Arterial Blood Glucose Urine WBC (Auto) 01/07/20 01/07/20 01/07/20 04:10 05:59 12:27 WBC RBC Hgb Hct MCHC RDW MCV MCH Lymph % (Auto) Coleman % (Auto) Coleman # Eos # Lymph # (Auto) Coleman # (Auto) Eos # (Auto) Seg Neutrophils % Seg Neuts % (Manual) Baso # (Auto) Lymphocytes % (Manual) Monocytes % (Manual) Eosinophils % (Manual) Basophils % (Manual) Seg Neutrophils # Seg Neutrophils # Man Lymphocytes # (Manual) Monocytes # (Manual) Eosinophils # (Manual) Nucleated RBC % Basophils # (Manual) APTT Heparin Anti-Xa Level ABG pH POC ABG pO2 ABG pO2 ABG HCO3 ABG O2 Saturation ABG Base Excess POC ABG pCO2 ABG Hemoglobin ABG Oxyhemoglobin ABG Glucose Oxyhemoglobin Sodium 153 H Potassium 3.5 L Chloride Carbon Dioxide 34 H BUN Creatinine 0.6 L Glucose 121 H POC Glucose 121 H 126 H Lactic Acid Calcium Phosphorus Magnesium AST ALT Lactate Dehydrogenase CK-MB (CK-2) C-Reactive Protein NT-Pro-B Natriuret Pep Total Protein 5.9 L Albumin 2.4 L Arterial Blood Glucose Urine WBC (Auto) 01/07/20 01/08/20 01/08/20 18:12 00:03 05:41 WBC RBC Hgb Hct MCHC RDW MCV MCH Lymph % (Auto) Coleman % (Auto) Coleman # Eos # Lymph # (Auto) Coleman # (Auto) Eos # (Auto) Seg Neutrophils % Seg Neuts % (Manual) Baso # (Auto) Lymphocytes % (Manual) Monocytes % (Manual) Eosinophils % (Manual) Basophils % (Manual) Seg Neutrophils # Seg Neutrophils # Man Lymphocytes # (Manual) Monocytes # (Manual) Eosinophils # (Manual) Nucleated RBC % Basophils # (Manual) APTT Heparin Anti-Xa Level ABG pH POC ABG pO2 ABG pO2 ABG HCO3 ABG O2 Saturation ABG Base Excess POC ABG pCO2 ABG Hemoglobin ABG Oxyhemoglobin ABG Glucose Oxyhemoglobin Sodium Potassium Chloride Carbon Dioxide BUN Creatinine Glucose POC Glucose 124 H 130 H 138 H Lactic Acid Calcium Phosphorus Magnesium AST ALT Lactate Dehydrogenase CK-MB (CK-2) C-Reactive Protein NT-Pro-B Natriuret Pep Total Protein Albumin Arterial Blood Glucose Urine WBC (Auto) 01/08/20 01/08/20 01/08/20 09:28 11:42 18:21 WBC RBC Hgb Hct MCHC RDW MCV MCH Lymph % (Auto) Coleman % (Auto) Coleman # Eos # Lymph # (Auto) Coleman # (Auto) Eos # (Auto) Seg Neutrophils % Seg Neuts % (Manual) Baso # (Auto) Lymphocytes % (Manual) Monocytes % (Manual) Eosinophils % (Manual) Basophils % (Manual) Seg Neutrophils # Seg Neutrophils # Man Lymphocytes # (Manual) Monocytes # (Manual) Eosinophils # (Manual) Nucleated RBC % Basophils # (Manual) APTT Heparin Anti-Xa Level ABG pH POC ABG pO2 ABG pO2 ABG HCO3 ABG O2 Saturation ABG Base Excess POC ABG pCO2 ABG Hemoglobin ABG Oxyhemoglobin ABG Glucose Oxyhemoglobin Sodium Potassium Chloride Carbon Dioxide BUN Creatinine Glucose POC Glucose 181 H 150 H 129 H Lactic Acid Calcium Phosphorus Magnesium AST ALT Lactate Dehydrogenase CK-MB (CK-2) C-Reactive Protein NT-Pro-B Natriuret Pep Total Protein Albumin Arterial Blood Glucose Urine WBC (Auto) 01/08/20 01/08/20 01/09/20 19:25 23:55 04:11 WBC RBC 3.43 L Hgb 8.9 L Hct 28.7 L MCHC 31 L RDW 17.6 H MCV MCH 26 L Lymph % (Auto) Coleman % (Auto) 8.6 H Coleman # Eos # Lymph # (Auto) Coleman # (Auto) Eos # (Auto) Seg Neutrophils % Seg Neuts % (Manual) Baso # (Auto) Lymphocytes % (Manual) Monocytes % (Manual) Eosinophils % (Manual) Basophils % (Manual) Seg Neutrophils # Seg Neutrophils # Man Lymphocytes # (Manual) Monocytes # (Manual) Eosinophils # (Manual) Nucleated RBC % Basophils # (Manual) APTT Heparin Anti-Xa Level ABG pH POC ABG pO2 ABG pO2 ABG HCO3 ABG O2 Saturation ABG Base Excess POC ABG pCO2 ABG Hemoglobin ABG Oxyhemoglobin ABG Glucose Oxyhemoglobin Sodium Potassium Chloride Carbon Dioxide BUN Creatinine 0.7 L Glucose 117 H POC Glucose 132 H Lactic Acid Calcium Phosphorus Magnesium AST ALT Lactate Dehydrogenase CK-MB (CK-2) C-Reactive Protein NT-Pro-B Natriuret Pep Total Protein Albumin Arterial Blood Glucose Urine WBC (Auto) 01/09/20 01/09/20 01/09/20 04:11 05:38 22:58 WBC RBC Hgb Hct MCHC RDW MCV MCH Lymph % (Auto) Coleman % (Auto) Coleman # Eos # Lymph # (Auto) Coleman # (Auto) Eos # (Auto) Seg Neutrophils % Seg Neuts % (Manual) Baso # (Auto) Lymphocytes % (Manual) Monocytes % (Manual) Eosinophils % (Manual) Basophils % (Manual) Seg Neutrophils # Seg Neutrophils # Man Lymphocytes # (Manual) Monocytes # (Manual) Eosinophils # (Manual) Nucleated RBC % Basophils # (Manual) APTT Heparin Anti-Xa Level ABG pH POC ABG pO2 ABG pO2 ABG HCO3 ABG O2 Saturation ABG Base Excess POC ABG pCO2 ABG Hemoglobin ABG Oxyhemoglobin ABG Glucose Oxyhemoglobin Sodium 147 H Potassium 3.3 L D Chloride Carbon Dioxide 32 H BUN Creatinine 0.6 L Glucose 106 H POC Glucose 107 H 113 H Lactic Acid Calcium Phosphorus Magnesium AST ALT Lactate Dehydrogenase CK-MB (CK-2) C-Reactive Protein NT-Pro-B Natriuret Pep Total Protein Albumin Arterial Blood Glucose Urine WBC (Auto) 01/10/20 01/10/20 01/10/20 04:05 11:36 17:54 WBC RBC Hgb Hct MCHC RDW MCV MCH Lymph % (Auto) Coleman % (Auto) Coleman # Eos # Lymph # (Auto) Coleman # (Auto) Eos # (Auto) Seg Neutrophils % Seg Neuts % (Manual) Baso # (Auto) Lymphocytes % (Manual) Monocytes % (Manual) Eosinophils % (Manual) Basophils % (Manual) Seg Neutrophils # Seg Neutrophils # Man Lymphocytes # (Manual) Monocytes # (Manual) Eosinophils # (Manual) Nucleated RBC % Basophils # (Manual) APTT Heparin Anti-Xa Level ABG pH POC ABG pO2 ABG pO2 ABG HCO3 ABG O2 Saturation ABG Base Excess POC ABG pCO2 ABG Hemoglobin ABG Oxyhemoglobin ABG Glucose Oxyhemoglobin Sodium Potassium Chloride Carbon Dioxide BUN Creatinine 0.7 L Glucose 110 H POC Glucose 129 H 117 H Lactic Acid Calcium Phosphorus Magnesium AST ALT Lactate Dehydrogenase CK-MB (CK-2) C-Reactive Protein NT-Pro-B Natriuret Pep Total Protein Albumin Arterial Blood Glucose Urine WBC (Auto) 01/10/20 01/11/20 01/11/20 23:52 03:19 12:09 WBC RBC Hgb Hct MCHC RDW MCV MCH Lymph % (Auto) Coleman % (Auto) Coleman # Eos # Lymph # (Auto) Coleman # (Auto) Eos # (Auto) Seg Neutrophils % Seg Neuts % (Manual) Baso # (Auto) Lymphocytes % (Manual) Monocytes % (Manual) Eosinophils % (Manual) Basophils % (Manual) Seg Neutrophils # Seg Neutrophils # Man Lymphocytes # (Manual) Monocytes # (Manual) Eosinophils # (Manual) Nucleated RBC % Basophils # (Manual) APTT Heparin Anti-Xa Level ABG pH POC ABG pO2 ABG pO2 ABG HCO3 ABG O2 Saturation ABG Base Excess POC ABG pCO2 ABG Hemoglobin ABG Oxyhemoglobin ABG Glucose Oxyhemoglobin Sodium Potassium Chloride Carbon Dioxide BUN Creatinine Glucose POC Glucose 117 H 136 H 115 H Lactic Acid Calcium Phosphorus Magnesium AST ALT Lactate Dehydrogenase CK-MB (CK-2) C-Reactive Protein NT-Pro-B Natriuret Pep Total Protein Albumin Arterial Blood Glucose Urine WBC (Auto) 01/11/20 01/11/20 01/12/20 18:27 23:28 00:23 WBC RBC Hgb 9.8 L Hct 31.6 L MCHC 31 L RDW 17.8 H MCV 83 L MCH 26 L Lymph % (Auto) Coleman % (Auto) 8.0 H Coleman # Eos # Lymph # (Auto) Coleman # (Auto) Eos # (Auto) Seg Neutrophils % Seg Neuts % (Manual) Baso # (Auto) Lymphocytes % (Manual) Monocytes % (Manual) Eosinophils % (Manual) Basophils % (Manual) Seg Neutrophils # Seg Neutrophils # Man Lymphocytes # (Manual) Monocytes # (Manual) Eosinophils # (Manual) Nucleated RBC % Basophils # (Manual) APTT Heparin Anti-Xa Level ABG pH POC ABG pO2 ABG pO2 ABG HCO3 ABG O2 Saturation ABG Base Excess POC ABG pCO2 ABG Hemoglobin ABG Oxyhemoglobin ABG Glucose Oxyhemoglobin Sodium Potassium Chloride Carbon Dioxide BUN Creatinine Glucose POC Glucose 118 H 122 H Lactic Acid Calcium Phosphorus Magnesium AST ALT Lactate Dehydrogenase CK-MB (CK-2) C-Reactive Protein NT-Pro-B Natriuret Pep Total Protein Albumin Arterial Blood Glucose Urine WBC (Auto) 01/12/20 01/12/20 01/12/20 00:23 04:18 04:18 WBC RBC Hgb 9.6 L Hct 30.9 L MCHC 31 L RDW 17.3 H MCV 81 L MCH 25 L Lymph % (Auto) Coleman % (Auto) Coleman # Eos # Lymph # (Auto) Coleman # (Auto) Eos # (Auto) Seg Neutrophils % Seg Neuts % (Manual) Baso # (Auto) Lymphocytes % (Manual) Monocytes % (Manual) Eosinophils % (Manual) Basophils % (Manual) Seg Neutrophils # Seg Neutrophils # Man Lymphocytes # (Manual) Monocytes # (Manual) Eosinophils # (Manual) Nucleated RBC % Basophils # (Manual) APTT Heparin Anti-Xa Level ABG pH POC ABG pO2 ABG pO2 ABG HCO3 ABG O2 Saturation ABG Base Excess POC ABG pCO2 ABG Hemoglobin ABG Oxyhemoglobin ABG Glucose Oxyhemoglobin Sodium Potassium Chloride Carbon Dioxide BUN Creatinine 0.7 L 0.7 L Glucose 111 H 108 H POC Glucose Lactic Acid Calcium Phosphorus Magnesium AST ALT Lactate Dehydrogenase CK-MB (CK-2) C-Reactive Protein NT-Pro-B Natriuret Pep Total Protein Albumin 2.6 L Arterial Blood Glucose Urine WBC (Auto) 01/12/20 01/12/20 01/12/20 06:03 12:27 13:58 WBC RBC Hgb Hct MCHC RDW MCV MCH Lymph % (Auto) Coleman % (Auto) Coleman # Eos # Lymph # (Auto) Coleman # (Auto) Eos # (Auto) Seg Neutrophils % Seg Neuts % (Manual) Baso # (Auto) Lymphocytes % (Manual) Monocytes % (Manual) Eosinophils % (Manual) Basophils % (Manual) Seg Neutrophils # Seg Neutrophils # Man Lymphocytes # (Manual) Monocytes # (Manual) Eosinophils # (Manual) Nucleated RBC % Basophils # (Manual) APTT Heparin Anti-Xa Level ABG pH 7.453 H POC ABG pO2 76.6 L ABG pO2 ABG HCO3 ABG O2 Saturation ABG Base Excess POC ABG pCO2 ABG Hemoglobin 10.3 L ABG Oxyhemoglobin ABG Glucose 99 H Oxyhemoglobin Sodium Potassium Chloride Carbon Dioxide BUN Creatinine Glucose POC Glucose 128 H 121 H Lactic Acid Calcium Phosphorus Magnesium AST ALT Lactate Dehydrogenase CK-MB (CK-2) C-Reactive Protein NT-Pro-B Natriuret Pep Total Protein Albumin Arterial Blood Glucose 99 H Urine WBC (Auto) 01/12/20 01/13/20 01/13/20 18:24 12:01 17:46 WBC RBC Hgb Hct MCHC RDW MCV MCH Lymph % (Auto) Coleman % (Auto) Coleman # Eos # Lymph # (Auto) Coleman # (Auto) Eos # (Auto) Seg Neutrophils % Seg Neuts % (Manual) Baso # (Auto) Lymphocytes % (Manual) Monocytes % (Manual) Eosinophils % (Manual) Basophils % (Manual) Seg Neutrophils # Seg Neutrophils # Man Lymphocytes # (Manual) Monocytes # (Manual) Eosinophils # (Manual) Nucleated RBC % Basophils # (Manual) APTT Heparin Anti-Xa Level ABG pH POC ABG pO2 ABG pO2 ABG HCO3 ABG O2 Saturation ABG Base Excess POC ABG pCO2 ABG Hemoglobin ABG Oxyhemoglobin ABG Glucose Oxyhemoglobin Sodium Potassium Chloride Carbon Dioxide BUN Creatinine Glucose POC Glucose 119 H 107 H 124 H Lactic Acid Calcium Phosphorus Magnesium AST ALT Lactate Dehydrogenase CK-MB (CK-2) C-Reactive Protein NT-Pro-B Natriuret Pep Total Protein Albumin Arterial Blood Glucose Urine WBC (Auto) 01/13/20 01/14/20 01/14/20 20:40 00:10 05:33 WBC RBC Hgb Hct MCHC RDW MCV MCH Lymph % (Auto) Coleman % (Auto) Coleman # Eos # Lymph # (Auto) Coleman # (Auto) Eos # (Auto) Seg Neutrophils % Seg Neuts % (Manual) Baso # (Auto) Lymphocytes % (Manual) Monocytes % (Manual) Eosinophils % (Manual) Basophils % (Manual) Seg Neutrophils # Seg Neutrophils # Man Lymphocytes # (Manual) Monocytes # (Manual) Eosinophils # (Manual) Nucleated RBC % Basophils # (Manual) APTT Heparin Anti-Xa Level ABG pH POC ABG pO2 ABG pO2 65.3 L ABG HCO3 31.8 H ABG O2 Saturation 93.5 L ABG Base Excess 6.7 H POC ABG pCO2 ABG Hemoglobin 13.3 L ABG Oxyhemoglobin ABG Glucose Oxyhemoglobin 90.9 L Sodium Potassium Chloride Carbon Dioxide BUN Creatinine Glucose POC Glucose 111 H 111 H Lactic Acid Calcium Phosphorus Magnesium AST ALT Lactate Dehydrogenase CK-MB (CK-2) C-Reactive Protein NT-Pro-B Natriuret Pep Total Protein Albumin Arterial Blood Glucose Urine WBC (Auto) 01/14/20 01/14/20 01/14/20 12:10 16:14 16:14 WBC RBC Hgb 10.6 L Hct 34.2 L MCHC 31 L RDW 18.3 H MCV 83 L MCH 26 L Lymph % (Auto) Coleman % (Auto) 7.4 H Coleman # Eos # Lymph # (Auto) Coleman # (Auto) Eos # (Auto) Seg Neutrophils % 71.9 H Seg Neuts % (Manual) Baso # (Auto) Lymphocytes % (Manual) Monocytes % (Manual) Eosinophils % (Manual) Basophils % (Manual) Seg Neutrophils # Seg Neutrophils # Man Lymphocytes # (Manual) Monocytes # (Manual) Eosinophils # (Manual) Nucleated RBC % Basophils # (Manual) APTT Heparin Anti-Xa Level ABG pH POC ABG pO2 ABG pO2 ABG HCO3 ABG O2 Saturation ABG Base Excess POC ABG pCO2 ABG Hemoglobin ABG Oxyhemoglobin ABG Glucose Oxyhemoglobin Sodium Potassium Chloride Carbon Dioxide 31 H BUN Creatinine 0.6 L Glucose 131 H POC Glucose 139 H Lactic Acid Calcium Phosphorus Magnesium AST ALT Lactate Dehydrogenase CK-MB (CK-2) C-Reactive Protein NT-Pro-B Natriuret Pep Total Protein Albumin Arterial Blood Glucose Urine WBC (Auto) 01/14/20 01/15/20 01/15/20 18:05 00:52 05:35 WBC RBC Hgb Hct MCHC RDW MCV MCH Lymph % (Auto) Coleman % (Auto) Coleman # Eos # Lymph # (Auto) Coleman # (Auto) Eos # (Auto) Seg Neutrophils % Seg Neuts % (Manual) Baso # (Auto) Lymphocytes % (Manual) Monocytes % (Manual) Eosinophils % (Manual) Basophils % (Manual) Seg Neutrophils # Seg Neutrophils # Man Lymphocytes # (Manual) Monocytes # (Manual) Eosinophils # (Manual) Nucleated RBC % Basophils # (Manual) APTT Heparin Anti-Xa Level ABG pH POC ABG pO2 ABG pO2 ABG HCO3 ABG O2 Saturation ABG Base Excess POC ABG pCO2 ABG Hemoglobin ABG Oxyhemoglobin ABG Glucose Oxyhemoglobin Sodium Potassium Chloride Carbon Dioxide BUN Creatinine Glucose POC Glucose 147 H 140 H 159 H Lactic Acid Calcium Phosphorus Magnesium AST ALT Lactate Dehydrogenase CK-MB (CK-2) C-Reactive Protein NT-Pro-B Natriuret Pep Total Protein Albumin Arterial Blood Glucose Urine WBC (Auto) 01/15/20 01/15/20 01/16/20 12:52 17:43 00:32 WBC RBC Hgb Hct MCHC RDW MCV MCH Lymph % (Auto) Coleman % (Auto) Coleman # Eos # Lymph # (Auto) Coleman # (Auto) Eos # (Auto) Seg Neutrophils % Seg Neuts % (Manual) Baso # (Auto) Lymphocytes % (Manual) Monocytes % (Manual) Eosinophils % (Manual) Basophils % (Manual) Seg Neutrophils # Seg Neutrophils # Man Lymphocytes # (Manual) Monocytes # (Manual) Eosinophils # (Manual) Nucleated RBC % Basophils # (Manual) APTT Heparin Anti-Xa Level ABG pH POC ABG pO2 ABG pO2 ABG HCO3 ABG O2 Saturation ABG Base Excess POC ABG pCO2 ABG Hemoglobin ABG Oxyhemoglobin ABG Glucose Oxyhemoglobin Sodium Potassium Chloride Carbon Dioxide BUN Creatinine Glucose POC Glucose 164 H 167 H 153 H Lactic Acid Calcium Phosphorus Magnesium AST ALT Lactate Dehydrogenase CK-MB (CK-2) C-Reactive Protein NT-Pro-B Natriuret Pep Total Protein Albumin Arterial Blood Glucose Urine WBC (Auto) 01/16/20 01/16/20 01/17/20 05:46 11:48 06:38 WBC RBC Hgb Hct MCHC RDW MCV MCH Lymph % (Auto) Coleman % (Auto) Coleman # Eos # Lymph # (Auto) Coleman # (Auto) Eos # (Auto) Seg Neutrophils % Seg Neuts % (Manual) Baso # (Auto) Lymphocytes % (Manual) Monocytes % (Manual) Eosinophils % (Manual) Basophils % (Manual) Seg Neutrophils # Seg Neutrophils # Man Lymphocytes # (Manual) Monocytes # (Manual) Eosinophils # (Manual) Nucleated RBC % Basophils # (Manual) APTT Heparin Anti-Xa Level ABG pH POC ABG pO2 ABG pO2 ABG HCO3 ABG O2 Saturation ABG Base Excess POC ABG pCO2 ABG Hemoglobin ABG Oxyhemoglobin ABG Glucose Oxyhemoglobin Sodium Potassium Chloride Carbon Dioxide BUN Creatinine Glucose POC Glucose 163 H 155 H 116 H Lactic Acid Calcium Phosphorus Magnesium AST ALT Lactate Dehydrogenase CK-MB (CK-2) C-Reactive Protein NT-Pro-B Natriuret Pep Total Protein Albumin Arterial Blood Glucose Urine WBC (Auto) 01/17/20 01/17/20 01/18/20 11:36 17:43 00:12 WBC RBC Hgb Hct MCHC RDW MCV MCH Lymph % (Auto) Coleman % (Auto) Coleman # Eos # Lymph # (Auto) Coleman # (Auto) Eos # (Auto) Seg Neutrophils % Seg Neuts % (Manual) Baso # (Auto) Lymphocytes % (Manual) Monocytes % (Manual) Eosinophils % (Manual) Basophils % (Manual) Seg Neutrophils # Seg Neutrophils # Man Lymphocytes # (Manual) Monocytes # (Manual) Eosinophils # (Manual) Nucleated RBC % Basophils # (Manual) APTT Heparin Anti-Xa Level ABG pH POC ABG pO2 ABG pO2 ABG HCO3 ABG O2 Saturation ABG Base Excess POC ABG pCO2 ABG Hemoglobin ABG Oxyhemoglobin ABG Glucose Oxyhemoglobin Sodium Potassium Chloride Carbon Dioxide BUN Creatinine Glucose POC Glucose 110 H 134 H 108 H Lactic Acid Calcium Phosphorus Magnesium AST ALT Lactate Dehydrogenase CK-MB (CK-2) C-Reactive Protein NT-Pro-B Natriuret Pep Total Protein Albumin Arterial Blood Glucose Urine WBC (Auto) 01/18/20 01/18/20 01/18/20 05:37 06:46 06:46 WBC RBC Hgb 10.1 L Hct 32.2 L MCHC 31 L RDW 18.1 H MCV 81 L MCH 25 L Lymph % (Auto) Coleman % (Auto) Coleman # Eos # Lymph # (Auto) Coleman # (Auto) Eos # (Auto) Seg Neutrophils % 71.9 H Seg Neuts % (Manual) Baso # (Auto) Lymphocytes % (Manual) Monocytes % (Manual) Eosinophils % (Manual) Basophils % (Manual) Seg Neutrophils # Seg Neutrophils # Man Lymphocytes # (Manual) Monocytes # (Manual) Eosinophils # (Manual) Nucleated RBC % Basophils # (Manual) APTT Heparin Anti-Xa Level ABG pH POC ABG pO2 ABG pO2 ABG HCO3 ABG O2 Saturation ABG Base Excess POC ABG pCO2 ABG Hemoglobin ABG Oxyhemoglobin ABG Glucose Oxyhemoglobin Sodium Potassium Chloride Carbon Dioxide BUN Creatinine 0.7 L Glucose 155 H POC Glucose 168 H Lactic Acid Calcium Phosphorus Magnesium AST ALT Lactate Dehydrogenase CK-MB (CK-2) C-Reactive Protein NT-Pro-B Natriuret Pep Total Protein Albumin Arterial Blood Glucose Urine WBC (Auto) 01/18/20 01/18/20 01/18/20 12:05 17:14 23:28 WBC RBC Hgb Hct MCHC RDW MCV MCH Lymph % (Auto) Coleman % (Auto) Coleman # Eos # Lymph # (Auto) Coleman # (Auto) Eos # (Auto) Seg Neutrophils % Seg Neuts % (Manual) Baso # (Auto) Lymphocytes % (Manual) Monocytes % (Manual) Eosinophils % (Manual) Basophils % (Manual) Seg Neutrophils # Seg Neutrophils # Man Lymphocytes # (Manual) Monocytes # (Manual) Eosinophils # (Manual) Nucleated RBC % Basophils # (Manual) APTT Heparin Anti-Xa Level ABG pH POC ABG pO2 ABG pO2 ABG HCO3 ABG O2 Saturation ABG Base Excess POC ABG pCO2 ABG Hemoglobin ABG Oxyhemoglobin ABG Glucose Oxyhemoglobin Sodium Potassium Chloride Carbon Dioxide BUN Creatinine Glucose POC Glucose 128 H 126 H 128 H Lactic Acid Calcium Phosphorus Magnesium AST ALT Lactate Dehydrogenase CK-MB (CK-2) C-Reactive Protein NT-Pro-B Natriuret Pep Total Protein Albumin Arterial Blood Glucose Urine WBC (Auto) 01/19/20 01/19/20 01/19/20 05:39 12:33 17:36 WBC RBC Hgb Hct MCHC RDW MCV MCH Lymph % (Auto) Coleman % (Auto) Coleman # Eos # Lymph # (Auto) Coleman # (Auto) Eos # (Auto) Seg Neutrophils % Seg Neuts % (Manual) Baso # (Auto) Lymphocytes % (Manual) Monocytes % (Manual) Eosinophils % (Manual) Basophils % (Manual) Seg Neutrophils # Seg Neutrophils # Man Lymphocytes # (Manual) Monocytes # (Manual) Eosinophils # (Manual) Nucleated RBC % Basophils # (Manual) APTT Heparin Anti-Xa Level ABG pH POC ABG pO2 ABG pO2 ABG HCO3 ABG O2 Saturation ABG Base Excess POC ABG pCO2 ABG Hemoglobin ABG Oxyhemoglobin ABG Glucose Oxyhemoglobin Sodium Potassium Chloride Carbon Dioxide BUN Creatinine Glucose POC Glucose 164 H 171 H 152 H Lactic Acid Calcium Phosphorus Magnesium AST ALT Lactate Dehydrogenase CK-MB (CK-2) C-Reactive Protein NT-Pro-B Natriuret Pep Total Protein Albumin Arterial Blood Glucose Urine WBC (Auto) 01/20/20 00:12 WBC RBC Hgb Hct MCHC RDW MCV MCH Lymph % (Auto) Coleman % (Auto) Coleman # Eos # Lymph # (Auto) Coleman # (Auto) Eos # (Auto) Seg Neutrophils % Seg Neuts % (Manual) Baso # (Auto) Lymphocytes % (Manual) Monocytes % (Manual) Eosinophils % (Manual) Basophils % (Manual) Seg Neutrophils # Seg Neutrophils # Man Lymphocytes # (Manual) Monocytes # (Manual) Eosinophils # (Manual) Nucleated RBC % Basophils # (Manual) APTT Heparin Anti-Xa Level ABG pH POC ABG pO2 ABG pO2 ABG HCO3 ABG O2 Saturation ABG Base Excess POC ABG pCO2 ABG Hemoglobin ABG Oxyhemoglobin ABG Glucose Oxyhemoglobin Sodium Potassium Chloride Carbon Dioxide BUN Creatinine Glucose POC Glucose 120 H Lactic Acid Calcium Phosphorus Magnesium AST ALT Lactate Dehydrogenase CK-MB (CK-2) C-Reactive Protein NT-Pro-B Natriuret Pep Total Protein Albumin Arterial Blood Glucose Urine WBC (Auto) Allied health notes reviewed: nursing
[2020-01-20] MEDS: MORPHINE 2 MG/1 ML INJ IV PRN ×3 (05:15→21:21)
[2020-01-20] MEDS ORDERED: FUROSEMIDE 20 MG/2 ML INJ IV SCH (06:00)
[2020-01-20] MEDS: FUROSEMIDE 20 MG/2 ML INJ IV SCH ×2 (06:19→18:10)
[2020-01-20 07:09] LABS: Blood Urea Nitrogen 22 mg/dL (9-20); Calcium 9.5 mg/dL (8.4-10.2); Hemolysis Index 3
[2020-01-20 07:53] LABS: BUN/Creatinine Ratio 31
--- NOTE | 2020-01-20 08:04 | Progress Note ---
Assessment and Plan Assessment and plan: COVID-19 test; 11/24/2019; negative 11/26/2019; negative 12/29/2019: Negative --Acute on chronic hypoxemic respiratory failure; Patient has tracheostomy on vent Continue nebulizers, , trach care Wean off ventilator as tolerated Pulmonary critical following --Acute exacerbation of COPD; Patient is currently on ventilatory support Continue nebulizers --Left lower lobe PE; Continue Eliquis, ventilatory support --Acute right lower extremity DVT; Patient is on Eliquis --Bilateral multifocal pneumonia/community-acquired Completed antibiotics, improved --Severe sepsis/bilateral pneumonia: Completed antibiotics --Paroxysmal atrial fibrillation; Now rate controlled Stable on amiodarone and Eliquis --Acute on chronic diastolic congestive heart failure Continue diuretics, beta-blockers, EF 50 to 55% --H/o CAD [[facility] 12/2018 in-stent restenosis] Patient is stable on current cardiac medications --Hypertensive emergency; present on admission Reasonable blood pressures, continue current antihypertensives As needed medications --History of alcohol abuse/alcohol withdrawal; Was on CIWA protocol, now stable --Oropharyngeal dysphagia; status post PEG placement Continue PEG feeds per protocol --History of partial small bowel obstruction; resolved Surgery evaluated. --Obesity; BMI 34.7 Patient needs weight reduction when medically stable --Severe protein calorie malnutrition/hypoalbuminemia Nutrition supplements, dietitian following, PEG feeds --DVT prophylaxis;Eliquis --Full CODE STATUS We will closely monitor the patient and adjust the management as needed Plan of care reviewed with the patient's nurse The high probability of a clinically significant, sudden or life threatening deterioration of the [Respiratory, cardiovascular & neurological] system(s) required my full and direct attention, intervention and personal management. The aggregate critical care time was [33] minutes without overlap. Time includes spent on [x] Data Review and interpretation [x] Patient assessment and monitoring of vital signs [x] Documentation [x] Medication orders and management 01/05; Pt stable. NGT output 650cc over 24 hours, bilious. No f/c, WBC within normal limits. cont NG suction and cont to hold TF 01/06: Abs series - mild improvement in small bowel distension in mid abdomen, normal gas/stool pattern in colon. NGT in duodenum. Continue to hold tube feeding, maintain NG tube with low intermittent suction. Patient's was updated by phone. Continue to provide supportive care and monitor clinically. 01/07: +BMs today and NGT/PEG output appears more gastric today. Plan to clamp NGT, if tolerates start TF from tomorrow. cont supportive care. 01/08; Gastric output decreased over last 24 hours. NGT has been clamped x 24 hours. plan to dc NGT and to start TTF via PEG - vital HF @10cc/hr 01/09: clinically stable, tolerating TF. monitor BMP, wean off from vent as tolerated clinically stable, on TF. wean off vent as tolerated 01/11: wean off from vent, cont to monitor, on TF 01/12: wean off from vent, cont to monitor, on TF. need placement - unfunded 01/13; remains on ventilatory support, unable to wean, DC planning possible LTA C, unfunded 01/14; patient of ventilatory support, T-piece tracheostomy on oxygen, LTAC placement per case management 01/16; tracheostomy, patient on full ventilatory support, wean off vent support as tolerated, pending LTAC placement, social financial issues 01/17; awaiting LTAC placement, insurance and financial issues 01/18; patient tracheostomy remains on ventilatory support 01/19; wean off ventilator as tolerated History Interval history: I have seen and examined the patient at the bedside in ICU this morning Patient's chart and medications reviewed Patient tracheostomy on full ventilatory support On weaning parameters Patient is alert and awake Vital signs reviewed Hospitalist Physical - Constitutional Vitals: Temp Pulse Resp BP Pulse Ox 99.0 F 95 H 19 110/71 96 01/20/20 04:00 01/20/20 06:30 01/20/20 06:30 01/20/20 06:30 01/20/20 06:30 General appearance: Present: well-nourished, obese, other (Tracheostomy on vent) - EENT Eyes: Present: PERRL, EOM intact - Neck Neck: Present: supple, normal ROM - Respiratory Respiratory effort: normal Respiratory: bilateral: diminished, rales - Cardiovascular Rhythm: regular Heart Sounds: Present: S1 & S2 - Extremities Extremities: no ischemia, No edema - Abdominal General gastrointestinal: soft, non-tender, non-distended, normal bowel sounds - Integumentary Integumentary: Present: clear, warm - Psychiatric Psychiatric: other (On ventilatory support) - Neurologic Neurologic: other (On ventilatory support, alert and awake) HEART Score - HEART Score Troponin: Troponin T < 0.010 ng/mL (0.00-0.029) 01/19/20 01:35 Results - Labs CBC & Chem 7: 01/20/20 05:20 01/20/20 05:40 Labs: Laboratory Last Values WBC 9.7 K/mm3 (4.5-11.0) 01/18/20 06:46 RBC 3.97 M/mm3 (3.65-5.03) 01/18/20 06:46 Hgb 10.1 gm/dl (11.8-15.2) L 01/18/20 06:46 Hct 32.2 % (35.5-45.6) L 01/18/20 06:46 MCV 81 fl (84-94) L 01/18/20 06:46 MCH 25 pg (28-32) L 01/18/20 06:46 MCHC 31 % (32-34) L 01/18/20 06:46 RDW 18.1 % (13.2-15.2) H 01/18/20 06:46 Plt Count 369 K/mm3 (140-440) 01/18/20 06:46 Lymph % (Auto) 18.6 % (13.4-35.0) 01/18/20 06:46 Gosper % (Auto) 6.8 % (0.0-7.3) 01/18/20 06:46 Eos % (Auto) 1.9 % (0.0-4.3) 01/18/20 06:46 Baso % (Auto) 0.8 % (0.0-1.8) 01/18/20 06:46 Lymph # (Auto) 1.8 K/mm3 (1.2-5.4) 01/18/20 06:46 Gosper # (Auto) 0.7 K/mm3 (0.0-0.8) 01/18/20 06:46 Eos # (Auto) 0.2 K/mm3 (0.0-0.4) 01/18/20 06:46 Baso # (Auto) 0.1 K/mm3 (0.0-0.1) 01/18/20 06:46 Add Manual Diff Complete 12/19/19 11:32 Total Counted 100 12/19/19 11:32 Seg Neutrophils % 71.9 % (40.0-70.0) H 01/18/20 06:46 Seg Neuts % (Manual) 82.0 % (40.0-70.0) H 12/19/19 11:32 Band Neutrophils % 0 % 12/19/19 11:32 Lymphocytes % (Manual) 10.0 % (13.4-35.0) L 12/19/19 11:32 Reactive Lymphs % (Man) 0 % 12/19/19 11:32 Monocytes % (Manual) 6.0 % (0.0-7.3) 12/19/19 11:32 Eosinophils % (Manual) 2.0 % (0.0-4.3) 12/19/19 11:32 Basophils % (Manual) 0 % (0.0-1.8) 12/19/19 11:32 Metamyelocytes % 0 % 12/19/19 11:32 Myelocytes % 0 % 12/19/19 11:32 Promyelocytes % 0 % 12/19/19 11:32 Blast Cells % 0 % 12/19/19 11:32 Nucleated RBC % 1.0 % (0.0-0.9) H 12/19/19 11:32 Seg Neutrophils # 7.0 K/mm3 (1.8-7.7) 01/18/20 06:46 Seg Neutrophils # Man 12.0 K/mm3 (1.8-7.7) H 12/19/19 11:32 Band Neutrophils # 0.0 K/mm3 12/19/19 11:32 Lymphocytes # (Manual) 1.5 K/mm3 (1.2-5.4) 12/19/19 11:32 Abs React Lymphs (Man) 0.0 K/mm3 12/19/19 11:32 Monocytes # (Manual) 0.9 K/mm3 (0.0-0.8) H 12/19/19 11:32 Eosinophils # (Manual) 0.3 K/mm3 (0.0-0.4) 12/19/19 11:32 Basophils # (Manual) 0.0 K/mm3 (0.0-0.1) 12/19/19 11:32 Metamyelocytes # 0.0 K/mm3 12/19/19 11:32 Myelocytes # 0.0 K/mm3 12/19/19 11:32 Promyelocytes # 0.0 K/mm3 12/19/19 11:32 Blast Cells # 0.0 K/mm3 12/19/19 11:32 WBC Morphology Not Reportable 12/19/19 11:32 Hypersegmented Neuts Not Reportable 12/19/19 11:32 Hyposegmented Neuts Not Reportable 12/19/19 11:32 Hypogranular Neuts Not Reportable 12/19/19 11:32 Smudge Cells Not Reportable 12/19/19 11:32 Toxic Granulation Not Reportable 12/19/19 11:32 Toxic Vacuolation Not Reportable 12/19/19 11:32 Dohle Bodies Not Reportable 12/19/19 11:32 Pelger-Huet Anomaly Not Reportable 12/19/19 11:32 Hector Rods Not Reportable 12/19/19 11:32 Platelet Estimate Consistent w auto 12/19/19 11:32 Clumped Platelets Not Reportable 12/19/19 11:32 Plt Clumps, EDTA Not Reportable 12/19/19 11:32 Large Platelets Not Reportable 12/19/19 11:32 Giant Platelets Not Reportable 12/19/19 11:32 Platelet Satelliting Not Reportable 12/19/19 11:32 Plt Morphology Comment Not Reportable 12/19/19 11:32 RBC Morphology Not Reportable 12/19/19 11:32 Dimorphic RBCs Not Reportable 12/19/19 11:32 Polychromasia Not Reportable 12/19/19 11:32 Hypochromasia Few 12/19/19 11:32 Poikilocytosis Not Reportable 12/19/19 11:32 Anisocytosis 1+ 12/19/19 11:32 Microcytosis Few 12/19/19 11:32 Macrocytosis Few 12/19/19 11:32 Spherocytes Not Reportable 12/19/19 11:32 Pappenheimer Bodies Not Reportable 12/19/19 11:32 Sickle Cells Not Reportable 12/19/19 11:32 Target Cells Not Reportable 12/19/19 11:32 Tear Drop Cells Not Reportable 12/19/19 11:32 Ovalocytes Not Reportable 12/19/19 11:32 Helmet Cells Not Reportable 12/19/19 11:32 Gottlieb-Canfield Bodies Not Reportable 12/19/19 11:32 Chase Rings Not Reportable 12/19/19 11:32 Oc Cells Not Reportable 12/19/19 11:32 Bite Cells Not Reportable 12/19/19 11:32 Crenated Cell Not Reportable 12/19/19 11:32 Elliptocytes Not Reportable 12/19/19 11:32 Acanthocytes (Spur) Not Reportable 12/19/19 11:32 Rouleaux Not Reportable 12/19/19 11:32 Hemoglobin C Crystals Not Reportable 12/19/19 11:32 Schistocytes Not Reportable 12/19/19 11:32 Malaria parasites Not Reportable 12/19/19 11:32 Clifford Bodies Not Reportable 12/19/19 11:32 Hem Pathologist Commnt No 12/19/19 11:32 PT 13.8 Sec. (12.2-14.9) 12/21/19 10:13 INR 1.05 (0.87-1.13) 12/21/19 10:13 APTT 23.9 Sec. (24.2-36.6) L 12/21/19 10:13 Heparin Anti-Xa Level 0.16 U.I./ml (0.3-0.7) L 01/04/20 04:26 ABG pH 7.449 pH Units (7.350-7.450) 01/13/20 20:40 POC ABG pCO2 45.6 mmHg (32.0-48.0) 01/12/20 13:58 ABG pCO2 46.9 mm Hg 01/13/20 20:40 POC ABG pO2 76.6 mmHg (83-108) L 01/12/20 13:58 ABG pO2 65.3 mm Hg (80.0-90.0) L 01/13/20 20:40 POC ABG HCO3 31.2 01/12/20 13:58 ABG HCO3 31.8 mmol/L (20.0-26.0) H 01/13/20 20:40 ABG O2 Saturation 93.5 % (95.0-99.0) L 01/13/20 20:40 ABG O2 Content 17.0 (0.0-44) 01/13/20 20:40 POC ABG Base Excess 6.5 01/12/20 13:58 ABG Base Excess 6.7 mmol/L (-2.0-3.0) H 01/13/20 20:40 ABG Hemoglobin 13.3 gm/dl (14.0-18.0) L 01/13/20 20:40 ABG Oxyhemoglobin 84 (94-98) L 12/22/19 03:22 ABG Carboxyhemoglobin 2.2 % (0.0-5.0) 01/13/20 20:40 ABG Methemoglobin 0.6 % (0.0-1.5) 01/13/20 20:40 ABG Sodium 136.8 mmol/L (136.0-145.0) 01/12/20 13:58 ABG Potassium 3.7 mmol/L (3.40-4.50) 01/12/20 13:58 ABG Chloride 103.0 mmol/L (98-107) 01/12/20 13:58 ABG Glucose 99 mg/dL (65-95) H 01/12/20 13:58 Oxyhemoglobin 90.9 % (95.0-99.0) L 01/13/20 20:40 Carboxyhemoglobin 0.7 (0.5-1.5) 12/22/19 03:22 FiO2 35 % 01/13/20 20:40 Sodium 140 mmol/L (137-145) 01/20/20 05:40 Potassium 4.2 mmol/L (3.6-5.0) 01/20/20 05:40 Chloride 99.7 mmol/L (98-107) 01/20/20 05:40 Carbon Dioxide 32 mmol/L (22-30) H 01/20/20 05:40 Anion Gap 13 mmol/L 01/20/20 05:40 BUN 22 mg/dL (9-20) H 01/20/20 05:40 Creatinine 0.7 mg/dL (0.8-1.3) L 01/20/20 05:40 Estimated GFR > 60 ml/min 01/20/20 05:40 BUN/Creatinine Ratio 31 % 01/20/20 05:40 Glucose 128 mg/dL (75-100) H 01/20/20 05:40 POC Glucose 136 mg/dL (70-105) H 01/20/20 05:35 Lactic Acid 2.50 mmol/L (0.7-2.0) H* 11/24/19 10:37 Magnesium 2.60 mg/dL (1.7-2.3) H 12/07/19 12:41 Calcium 9.5 mg/dL (8.4-10.2) 01/20/20 05:40 Ferritin 84.4 ng/mL (30.0-300.0) 11/24/19 04:53 Direct Bilirubin < 0.2 mg/dL (0-0.2) 12/08/19 03:55 Indirect Bilirubin 0.2 mg/dL 12/08/19 03:55 Phosphorus 3.40 mg/dL (2.5-4.5) 01/12/20 12:01 Total Bilirubin 0.50 mg/dL (0.1-1.2) 01/12/20 00:23 Total Creatine Kinase 141 units/L (55-170) 11/24/19 02:53 CK-MB (CK-2) 4.3 ng/mL (0.0-4.0) H 11/24/19 02:53 AST 16 units/L (5-40) 01/12/20 00:23 ALT 22 units/L (7-56) 01/12/20 00:23 CK-MB (CK-2) Rel Index 3.0 (0-4) 11/24/19 02:53 Alkaline Phosphatase 59 units/L (35-129) 01/12/20 00:23 C-Reactive Protein 8.50 mg/dL (0.00-1.30) H 12/01/19 12:16 Lactate Dehydrogenase 228 units/L (91-180) H 12/19/19 04:45 Troponin T < 0.010 ng/mL (0.00-0.029) 01/19/20 01:35 NT-Pro-B Natriuret Pep 3866 pg/mL (0-900) H 01/01/20 10:40 Total Protein 6.3 g/dL (6.3-8.2) 01/12/20 00:23 Albumin 2.6 g/dL (3.9-5) L 01/12/20 00:23 Albumin/Globulin Ratio 0.7 % 01/12/20 00:23 Procalcitonin 0.76 ng/mL (<0.15) 01/01/20 10:40 Arterial Blood Glucose 99 mg/dL (65-95) H 01/12/20 13:58 Arterial Blood Ionized Calcium 4.8 mg/dL (4.6-5.3) 01/12/20 13:58 Urine Color Cecy (Yellow) 12/31/19 18:04 Urine Turbidity Clear (Clear) 12/31/19 18:04 Urine pH 5.0 (5.0-7.0) 12/31/19 18:04 Ur Specific Serena 1.023 (1.003-1.030) 12/31/19 18:04 Urine Protein <15 mg/dl mg/dL (Negative) 12/31/19 18:04 Urine Glucose (UA) Neg mg/dL (Negative) 12/31/19 18:04 Urine Ketones Neg mg/dL (Negative) 12/31/19 18:04 Urine Blood Neg (Negative) 12/31/19 18:04 Urine Bacteria (Auto) 1+ /HPF (Negative) 12/03/19 06:03 Urine Nitrite Neg (Negative) 12/31/19 18:04 Urine Bilirubin Neg (Negative) 12/31/19 18:04 Urine Urobilinogen 4.0 mg/dL (<2.0) 12/31/19 18:04 Ur Leukocyte Esterase Neg (Negative) 12/31/19 18:04 Urine WBC (Auto) 2.0 /HPF (0.0-6.0) 12/31/19 18:04 Urine RBC (Auto) 3.0 /HPF (0.0-6.0) 12/31/19 18:04 U Epithel Cells (Auto) 2.0 /HPF (0-13.0) 12/31/19 18:04 Urine Mucus 1+ /HPF 12/31/19 18:04 Vancomycin Trough 14.2 ug/mL (5.0-20.0) 12/13/19 15:01 Coronavirus (PCR) Negative (Negative) 12/29/19 10:07 - Diagnostic Impressions Diagnostic Impressions: Echocardiogram 11/29/19 07:37 Transthoracic Echocardiogram Indication: CHF BP: 116/72 HR: 33 Conclusions *The study is technically limited due to poor acoustic windows. *Global left ventricular systolic function is normal. *The estimated ejection fraction is 50-55%. *Mild concentric left ventricular hypertrophy is observed. *There is trace of mitral regurgitation. *There is mild tricuspid regurgitation. Findings Procedure Info: The study quality is poor. The study is technically limited due to poor acoustic windows. The study is technically limited due to patient body habitus. Left Ventricle: The left ventricular chamber size is normal. Mild concentric left ventricular hypertrophy is observed. Global left ventricular systolic function is normal. The estimated ejection fraction is 50-55%. Left Atrium: The left atrial chamber size is normal. Right Ventricle: The right ventricular cavity size is normal. Right Atrium: The right atrial cavity size is normal. Aortic Valve: The aortic valve leaflets are moderately thickened. There is trace of aortic regurgitation. There is no evidence of aortic stenosis. Mitral Valve: The mitral valve leaflets are mildly thickened. There is trace of mitral regurgitation. There is no evidence of mitral stenosis. Tricuspid Valve: There is mild tricuspid regurgitation. No pulmonary hypertension is noted. Pulmonic Valve: There is trace pulmonic regurgitation. Pericardium: There is no pericardial effusion. Aorta: There is no dilatation of the aortic root. Venous: The inferior vena cava appears normal in size. Contrast: Definity was used to optimize study. Intravenous contrast was used to enhance endocardial border definition. Measurements Chambers 2D Name Value Normal Range Ao root diameter (2D) 3.4 cm (2 - 3.7) Aortic Valve Name Value Normal Range AV Vmax 0.98 m/sec - AV VTI 16.76 cm - AV peak gradient 3.83 mmHg - AV mean gradient 2.57 mmHg - LVOT diameter 3.11 cm - LVOT Vmax 0.68 m/sec - LVOT VTI 11.52 cm - LVOT peak gradient 1.84 mmHg - LVOT mean gradient 1.27 mmHg - SV LVOT 87.31 ml - MALOU (continuity Vmax) 5.24 cm2 - MALOU (continuity VTI) 5.21 cm2 - Tricuspid Valve Name Value Normal Range IVC diameter 2.24 cm (1.2 - 2.3) Hoffman/IV: Voiding Method Condom Catheter IV Catheter Type [Right INT / Saline Lock Forearm] IV Catheter Type [Right Hand] INT / Saline Lock IV Catheter Type [Right Upper INT / Saline Lock arm] IV Catheter Type [Left Upper Mid-line arm] IV Catheter Type [Left Forearm INT / Saline Lock ] IV Catheter Type [Left Hand] INT / Saline Lock IV Catheter Type [Left Wrist] INT / Saline Lock IV Catheter Type [Right Peripheral IV Antecubital] Active Medications - Current Medications Current Medications: Generic Name Dose Route Start Last Admin Trade Name Freq PRN Reason Stop Dose Admin Acetaminophen 650 mg 12/31/19 11:43 01/14/20 08:27 Tylenol FEEDTUBE 650 mg Q6H PRN Administration Pain, Mild (1-3) Amiodarone HCl 200 mg 12/04/19 14:00 01/19/20 21:02 Cordarone PO 200 mg BID CAR Administration Lipase/Protease/Amylase 1 each 01/09/20 12:[address] 10,500 Unit FEEDTUBE PRN PRN For Clogged Feeding Tube Apixaban 5 mg 01/11/20 22:00 01/19/20 21:04 Eliquis PO 5 mg Q12HR CAR Administration Protocol Bisacodyl 10 mg 01/06/20 13:00 01/18/20 10:20 Dulcolax HI 10 mg DAILY CAR Administration Docusate Sodium 100 mg 12/02/19 22:00 01/19/20 21:02 Colace FEEDTUBE 100 mg BID CAR Administration Famotidine 20 mg 01/12/20 10:00 01/19/20 21:03 Pepcid PO 20 mg BID CAR Administration Furosemide 20 mg 01/20/20 06:00 01/20/20 06:19 Lasix IV 20 mg 0600,1800 CAR Administration Glycopyrrolate 2 mg 01/12/20 22:00 01/19/20 21:03 Glycopyrrolate PO 2 mg BID CAR Administration Haloperidol Lactate 5 mg 12/25/19 10:00 01/17/20 11:19 Haldol IV 5 mg Q6H PRN Administration Unrespon. to mult. doses BZD's Hydrophilic Ointment 1 applic 01/17/20 15:26 Vaseline Lip Therapy TP DIRECT PRN Dry Lips Lorazepam 2 mg 12/25/19 10:00 01/17/20 16:01 Ativan IV 2 mg Q6H PRN Administration AGITATION Magnesium Hydroxide 30 ml 01/14/20 13:35 Milk Of Magnesia PO QDAY PRN Constip unreliev by MOM/or NPO Metoprolol Tartrate 5 mg 01/11/20 08:00 01/14/20 02:32 Metoprolol IV 5 mg Q6H PRN Administration SEE INSTRUCTIONS Metoprolol Tartrate 25 mg 01/11/20 13:00 01/20/20 06:23 Metoprolol PO 25 mg Q6H CAR Administration Morphine Sulfate 2 mg 01/06/20 15:41 01/20/20 05:15 Morphine IV 2 mg Q4H PRN Administration Pain, Moderate (4-6) Nitroglycerin 0.4 mg 01/19/20 21:09 01/20/20 03:03 Nitrostat SL 0.4 mg .Q5MIN PRN Administration Chest Pain Ondansetron HCl 4 mg 01/05/20 14:37 01/05/20 16:18 Zofran IV 4 mg Q8H PRN Administration Nausea And Vomiting Polyethylene Glycol 17 gm 12/04/19 22:00 01/19/20 21:03 Miralax 3350 PO 17 gm QHS CAR Administration Quetiapine Fumarate 300 mg 01/13/20 22:00 01/19/20 21:03 Seroquel PO 300 mg BID CAR Administration Scopolamine 1 each 01/07/20 20:00 01/07/20 21:08 Transderm-Scop TD 1 each Q72HR CAR Administration Simple Syrup 15 ml 01/09/20 12:01 Simple Syrup FEEDTUBE PRN PRN Hypoglycemia Simple Syrup 30 ml 01/09/20 12:01 Simple Syrup FEEDTUBE PRN PRN Hypoglycemia Sodium Bicarbonate 325 mg 01/09/20 12:01 Sodium Bicarbonate FEEDTUBE PRN PRN For Clogged Feeding Tube Sodium Chloride 10 ml 11/24/19 10:00 01/19/20 22:00 Sodium Chloride Flush Syringe 10 Ml IV 10 ml BID CAR Administration Tamsulosin HCl 0.8 mg 12/20/19 22:00 01/19/20 21:03 Flomax PO 0.8 mg QHS CAR Administration Nutrition/Malnutrition Assess - Dietary Evaluation Nutrition/Malnutrition Findings: Nutrition Notes Start: 11/24/19 12:22 Freq: Status: Active Protocol: Document 01/15/20 12:20 AL (Rec: 01/15/20 12:51 AL [email or web address]) Co-Sign 01/15/20 12:20 MK Nutrition Notes Initial or Follow up Reassessment Current Diagnosis Coronary Artery Disease,Heart Failure,Respiratory Failure, Stroke,Hyperlipidemia Other Pertinent Diagnosis Partial SBO, pneu Current Diet Vital HP at 70 ml/hr (goal rate) Labs/Tests Reviewed Pertinent Medications Reviewed Height 6 ft 2 in Weight 120 kg [place] Body Weight (kg) 86.36 BMI 34.0 Weight Status Obese Subjective/Other Information TF tolerated at 70 ml/hr (goal rate). Pt extubated. Percent of energy/protein needs met: 100%/79% Burn Absent Trauma Absent GI Symptoms None Current % PO Negligible Minimum of two criteria No Fluid Accumulation Mild (non-severe) #1 Nutrition Diagnosis Inadequate oral intake Diagnosis Progress(for reassessment Continues documentation) Is patient on ventilator? No Is Patient Ambulatory and/or Out of Bed No REE-([facility]-confined to bed) 2482.308 Kcal/Kg value to use for calculation 14 Approximate Energy Requirements Using 1680 kcal/Kg Calculation Used for Recommendations Kcal/kg Additional Notes Pro needs 82-103 g/day (.8-1. 0g/kg AdBW) Fluid needs 1ml/kcal Nutrition Intervention Change Diet Order: Change TF to Promote 1.0 at 70 ml/hr Nutrition Support: Promote 1.0 at 70ml/hr (goal rate) Flush 50 ml q4h or per MD Kcal 1,680 Protein (gm) 105 Fluid (mL) 1,409 Goal #1 Change TF Goal #2 TF (at goal rate) to meet 75% energy and Pro needs Anticipated Discharge Needs: unable to determine Follow-Up By: 01/19/20 Additional Comments TF tolerance.
[2020-01-20 08:14] LABS: Hematocrit 29.4 % (35.5-45.6); Hemoglobin 9.2 gm/dl (11.8-15.2); Mean Corpuscular HGB Conc 31 % (32-34); Mean Corpuscular Volume 81 fl (84-94); Platelet Count 288 K/mm3 (140-440); Red Blood Count 3.65 M/mm3 (3.65-5.03); Red Cell Distribution Width 17.9 % (13.2-15.2)
--- NOTE | 2020-01-20 09:43 | Progress Note ---
Assessment and Plan Acute hypoxemic respiratory failure Bilateral pneumonia, community acquired. Acute LLL branch P.E. Acute DVT Person under investigation for COVID-19 infection. Acute congestive heart failure exacerbation. History of cerebrovascular accident. Acute chronic obstructive pulmonary disease exacerbation. Hypertension and hypertensive urgency at presentation. History of arthritis. Leukocytosis. Lactic acidosis. Oropharyngeal dysphagia - continue diuresis at 20 mg IV bid re: BP issues - follow electrolytes and correct as necessary - prn CCXR's & ABG's at this point - RT asked resume t-piece trials in am as tolerated - rest on AC qhs for now - continue Robinul & Scopolamine for secretion control - continue full anticoagulation with Apixaban - continue care as below otherwise; - continue daily SAT's and SBT assessment as tolerated - continue seroquel for anxiolysis / delirium - COVID isolation per facility protocol - prn diuresis while following electrolytes / I's & O's - continue to wean oxygen for O2 sat's > 92% - continue bronchodilators with routine trach care and pulmonary hygiene per RT - VAP bundle addressed (Aspiration precautions, HOB >40) - continue to wean per pulmonary driven protocols - sedation target is RASS 0 to -1 - continue prn analgesia per CPOT score - follow clinically re: fever curves / trend WBC - Avoid delirium (no benzodiazepines if they can be avoided) - Maintain sleep-wake cycle - enteral nutrition at goal rate as tolerated - continue accucheck's with glycemic control per SSI for target blood glucose goal of 140-180 mg/dL while critically ill; Avoid hypoglycemia - for VTE he is on IV Heparin - continue stress ulcer prophylaxis with Famotidine - continue mobility protocols for pressure ulcer prophylaxis - continue fall precautions - continue wound care management per RN / WCT - Supportive transfusions to keep HgB>7g/dL - CXR's and ABG's prn - Continue to monitor neurologic function - Continue chronic home medications - Continue all supportive care ........ re-evaluate in am & prn CONDITION: CRITICAL PROGNOSIS: GUARDED CODE STATUS: FULL CODE The high probability of a clinically significant, sudden or life threatening deterioration of the [Respiratory, cardiovascular & neurological] system(s) required my full and direct attention, intervention and personal management. The aggregate critical care time was [33] minutes without overlap. Time includes spent on [x] Data Review and interpretation [x] Patient assessment and monitoring of vital signs [x] Documentation [x] Medication orders and management Subjective Date of service: 01/20/20 Principal diagnosis: Ac hypoxemic resp failure; Pneumonia; PUI COVID-19; CHF; COPD; HTN Interval history: LATE ENTRY NOTE FOR DATE OF SERVICE 01/19/2020 ([facility] was down) Patient is seen today for: Acute hypoxemic respiratory failure; Adan. Pneumonia (CAP); PUI COVID-19 infection; AE-CHF; AE-COPD; H/O CVA; HTN Seen and examined at bedside; 24 hour events reviewed; nursing and respiratory care staff consulted; no adverse overnight events reported to me; resting peacefully in bed; remains non MVS; back on PSV this morning and tolerating at 12/28; good response to diuretics; more alert and wants to eat; No N/V/F/C Objective Vital Signs - 12hr 01/19/20 01/19/20 01/19/20 21:46 21:57 22:00 Temperature Pulse Rate 83 81 81 Pulse Rate [ From Monitor] Respiratory 19 16 Rate Respiratory Rate [Abdomen] Blood Pressure 107/74 107/74 96/58 O2 Sat by Pulse 91 Oximetry O2 Sat by Pulse Oximetry [ Assessment] 01/19/20 01/19/20 01/19/20 22:16 22:30 22:46 Temperature Pulse Rate 83 84 85 Pulse Rate [ From Monitor] Respiratory 15 14 14 Rate Respiratory Rate [Abdomen] Blood Pressure 107/74 107/74 107/74 O2 Sat by Pulse 93 95 96 Oximetry O2 Sat by Pulse Oximetry [ Assessment] 01/19/20 01/19/20 01/19/20 23:00 23:16 23:30 Temperature Pulse Rate 85 86 85 Pulse Rate [ From Monitor] Respiratory 17 14 15 Rate Respiratory Rate [Abdomen] Blood Pressure 95/59 95/59 95/59 O2 Sat by Pulse 95 95 95 Oximetry O2 Sat by Pulse Oximetry [ Assessment] 01/19/20 01/19/20 01/20/20 23:34 23:46 00:00 Temperature 99.8 F H Pulse Rate 84 84 86 Pulse Rate [ 86 From Monitor] Respiratory 21 20 20 Rate Respiratory Rate [Abdomen] Blood Pressure 95/59 95/59 100/64 O2 Sat by Pulse 95 95 95 Oximetry O2 Sat by Pulse Oximetry [ Assessment] 01/20/20 01/20/20 01/20/20 00:16 00:28 00:30 Temperature Pulse Rate 85 85 85 Pulse Rate [ From Monitor] Respiratory 20 22 Rate Respiratory Rate [Abdomen] Blood Pressure 100/64 100/64 100/64 O2 Sat by Pulse 95 95 95 Oximetry O2 Sat by Pulse Oximetry [ Assessment] 01/20/20 01/20/20 01/20/20 00:46 01:00 01:16 Temperature Pulse Rate 86 86 86 Pulse Rate [ From Monitor] Respiratory 21 20 20 Rate Respiratory Rate [Abdomen] Blood Pressure 100/64 90/60 90/60 O2 Sat by Pulse 95 97 95 Oximetry O2 Sat by Pulse Oximetry [ Assessment] 01/20/20 01/20/20 01/20/20 01:26 01:30 01:46 Temperature Pulse Rate 87 87 87 Pulse Rate [ From Monitor] Respiratory 21 20 Rate Respiratory Rate [Abdomen] Blood Pressure 90/60 90/60 90/60 O2 Sat by Pulse 95 97 Oximetry O2 Sat by Pulse Oximetry [ Assessment] 01/20/20 01/20/20 01/20/20 02:00 02:16 02:30 Temperature Pulse Rate 87 94 H 93 H Pulse Rate [ From Monitor] Respiratory 19 22 18 Rate Respiratory Rate [Abdomen] Blood Pressure 92/64 92/64 92/64 O2 Sat by Pulse 96 96 95 Oximetry O2 Sat by Pulse Oximetry [ Assessment] 01/20/20 01/20/20 01/20/20 02:46 03:00 03:03 Temperature Pulse Rate 93 H 101 H 101 H Pulse Rate [ From Monitor] Respiratory 14 18 Rate Respiratory Rate [Abdomen] Blood Pressure 92/64 112/92 112/92 O2 Sat by Pulse 94 97 Oximetry O2 Sat by Pulse Oximetry [ Assessment] 01/20/20 01/20/20 01/20/20 03:16 03:30 03:46 Temperature Pulse Rate 97 H 91 H 91 H Pulse Rate [ From Monitor] Respiratory 13 16 19 Rate Respiratory Rate [Abdomen] Blood Pressure 112/92 112/92 112/92 O2 Sat by Pulse 98 94 96 Oximetry O2 Sat by Pulse Oximetry [ Assessment] 01/20/20 01/20/20 01/20/20 04:00 04:16 04:30 Temperature 99.0 F Pulse Rate 97 H 100 H 98 H Pulse Rate [ 100 H From Monitor] Respiratory 20 23 15 Rate Respiratory 24 Rate [Abdomen] Blood Pressure 110/70 110/70 110/70 O2 Sat by Pulse 94 93 94 Oximetry O2 Sat by Pulse Oximetry [ Assessment] 01/20/20 01/20/20 01/20/20 04:46 04:58 05:00 Temperature Pulse Rate 100 H 99 H 99 H Pulse Rate [ From Monitor] Respiratory 12 13 Rate Respiratory Rate [Abdomen] Blood Pressure 110/70 113/73 113/73 O2 Sat by Pulse 94 97 Oximetry O2 Sat by Pulse Oximetry [ Assessment] 01/20/20 01/20/20 01/20/20 05:16 05:30 05:46 Temperature Pulse Rate 97 H 96 H 94 H Pulse Rate [ From Monitor] Respiratory 19 15 14 Rate Respiratory Rate [Abdomen] Blood Pressure 113/73 113/73 113/73 O2 Sat by Pulse 95 97 96 Oximetry O2 Sat by Pulse Oximetry [ Assessment] 01/20/20 01/20/20 01/20/20 06:00 06:16 06:23 Temperature Pulse Rate 94 H 97 H 95 H Pulse Rate [ From Monitor] Respiratory 17 20 Rate Respiratory Rate [Abdomen] Blood Pressure 110/71 110/71 110/71 O2 Sat by Pulse 97 Oximetry O2 Sat by Pulse Oximetry [ Assessment] 01/20/20 01/20/20 01/20/20 06:30 08:00 09:14 Temperature 98.0 F Pulse Rate 95 H Pulse Rate [ From Monitor] Respiratory 19 Rate Respiratory Rate [Abdomen] Blood Pressure 110/71 O2 Sat by Pulse 96 97 Oximetry O2 Sat by Pulse Oximetry [ Assessment] 01/20/20 01/20/20 09:15 09:17 Temperature Pulse Rate 96 H Pulse Rate [ From Monitor] Respiratory Rate Respiratory Rate [Abdomen] Blood Pressure 109/71 O2 Sat by Pulse 97 Oximetry O2 Sat by Pulse 97 Oximetry [ Assessment] Constitutional: no acute distress, other (elelderly and obese male, normocephalic with mildly increased respiratory effort at rest on MVS) Eyes: non-icteric ENT: oropharynx moist, oropharyngeal exudate pre, other (trach to MVS) Neck: supple, no JVD Effort: mildly labored Ascultation: Bilateral: diminished breath sounds, rhonchi, other (+ secretions) Percussion: Bilateral: not dull Cardiovascular: irregular rhythm, other (S1,S2) Gastrointestinal: normoactive bowel sounds, soft, non-tender, non-distended (protuberant), other (protuberant; PEG in place) Integumentary: normal Extremities: no cyanosis, pulses normal, no ischemia or petechiae, edema (bilateral upper ) Neurologic: non-focal exam (moves extremities), pupils equal and round, CN II- XII normal, motor strength normal and (weak) Psychiatric: mood appropriate, affect normal CBC and BMP: 01/20/20 05:20 01/20/20 05:40 ABG, PT/INR, D-dimer: ABG ABG pH 7.449 pH Units (7.350-7.450) 01/13/20 20:40 POC ABG pCO2 45.6 mmHg (32.0-48.0) 01/12/20 13:58 ABG pCO2 46.9 mm Hg 01/13/20 20:40 POC ABG pO2 76.6 mmHg (83-108) L 01/12/20 13:58 ABG pO2 65.3 mm Hg (80.0-90.0) L 01/13/20 20:40 POC ABG HCO3 31.2 01/12/20 13:58 ABG O2 Saturation 93.5 % (95.0-99.0) L 01/13/20 20:40 PT/INR, D-dimer PT 13.8 Sec. (12.2-14.9) 12/21/19 10:13 INR 1.05 (0.87-1.13) 12/21/19 10:13 Abnormal lab findings: Abnormal Labs 11/24/19 11/24/19 11/24/19 02:53 02:53 03:45 WBC 14.3 H RBC Hgb Hct MCHC RDW 17.2 H MCV MCH Lymph % (Auto) [place] % (Auto) [place] # Eos # Lymph # (Auto) [place] # (Auto) Eos # (Auto) Seg Neutrophils % Seg Neuts % (Manual) Baso # (Auto) Lymphocytes % (Manual) Monocytes % (Manual) Eosinophils % (Manual) Basophils % (Manual) Seg Neutrophils # Seg Neutrophils # Man 8.3 H Lymphocytes # (Manual) Monocytes # (Manual) 0.9 H Eosinophils # (Manual) Nucleated RBC % Basophils # (Manual) APTT Heparin Anti-Xa Level ABG pH 7.313 L POC ABG pO2 ABG pO2 102.8 H ABG HCO3 ABG O2 Saturation ABG Base Excess -2.9 L POC ABG pCO2 ABG Hemoglobin ABG Oxyhemoglobin ABG Glucose Oxyhemoglobin 93.9 L Sodium Potassium Chloride Carbon Dioxide BUN Creatinine Glucose 195 H POC Glucose Lactic Acid Calcium Phosphorus Magnesium AST ALT Lactate Dehydrogenase CK-MB (CK-2) 4.3 H C-Reactive Protein NT-Pro-B Natriuret Pep 1181 H Total Protein Albumin Arterial Blood Glucose Urine WBC (Auto) 11/24/19 11/24/19 11/24/19 04:53 04:53 10:37 WBC RBC Hgb Hct MCHC RDW MCV MCH Lymph % (Auto) [place] % (Auto) [place] # Eos # Lymph # (Auto) [place] # (Auto) Eos # (Auto) Seg Neutrophils % Seg Neuts % (Manual) Baso # (Auto) Lymphocytes % (Manual) Monocytes % (Manual) Eosinophils % (Manual) Basophils % (Manual) Seg Neutrophils # Seg Neutrophils # Man Lymphocytes # (Manual) Monocytes # (Manual) Eosinophils # (Manual) Nucleated RBC % Basophils # (Manual) APTT Heparin Anti-Xa Level ABG pH POC ABG pO2 ABG pO2 ABG HCO3 ABG O2 Saturation ABG Base Excess POC ABG pCO2 ABG Hemoglobin ABG Oxyhemoglobin ABG Glucose Oxyhemoglobin Sodium Potassium Chloride Carbon Dioxide BUN Creatinine Glucose 162 H POC Glucose Lactic Acid 2.40 H* 2.50 H* Calcium Phosphorus Magnesium AST ALT Lactate Dehydrogenase 240 H CK-MB (CK-2) C-Reactive Protein NT-Pro-B Natriuret Pep Total Protein Albumin Arterial Blood Glucose Urine WBC (Auto) 11/24/19 11/24/19 11/24/19 12:21 14:50 19:54 WBC RBC Hgb Hct MCHC RDW MCV MCH Lymph % (Auto) [place] % (Auto) [place] # Eos # Lymph # (Auto) [place] # (Auto) Eos # (Auto) Seg Neutrophils % Seg Neuts % (Manual) Baso # (Auto) Lymphocytes % (Manual) Monocytes % (Manual) Eosinophils % (Manual) Basophils % (Manual) Seg Neutrophils # Seg Neutrophils # Man Lymphocytes # (Manual) Monocytes # (Manual) Eosinophils # (Manual) Nucleated RBC % Basophils # (Manual) APTT Heparin Anti-Xa Level ABG pH POC ABG pO2 ABG pO2 ABG HCO3 ABG O2 Saturation ABG Base Excess POC ABG pCO2 ABG Hemoglobin ABG Oxyhemoglobin ABG Glucose Oxyhemoglobin Sodium Potassium Chloride Carbon Dioxide BUN Creatinine Glucose POC Glucose 145 H 143 H 124 H Lactic Acid Calcium Phosphorus Magnesium AST ALT Lactate Dehydrogenase CK-MB (CK-2) C-Reactive Protein NT-Pro-B Natriuret Pep Total Protein Albumin Arterial Blood Glucose Urine WBC (Auto) 11/25/19 11/25/19 11/25/19 00:18 03:18 05:11 WBC 13.7 H RBC Hgb Hct MCHC RDW 17.1 H MCV MCH Lymph % (Auto) 10.8 L [place] % (Auto) 8.7 H [place] # 1.2 H Eos # Lymph # (Auto) [place] # (Auto) Eos # (Auto) Seg Neutrophils % 80.2 H Seg Neuts % (Manual) Baso # (Auto) Lymphocytes % (Manual) Monocytes % (Manual) Eosinophils % (Manual) Basophils % (Manual) Seg Neutrophils # 11.0 H Seg Neutrophils # Man Lymphocytes # (Manual) Monocytes # (Manual) Eosinophils # (Manual) Nucleated RBC % Basophils # (Manual) APTT Heparin Anti-Xa Level ABG pH 7.333 L POC ABG pO2 ABG pO2 61.2 L ABG HCO3 ABG O2 Saturation 90.2 L ABG Base Excess POC ABG pCO2 ABG Hemoglobin 13.7 L ABG Oxyhemoglobin ABG Glucose Oxyhemoglobin 88.2 L Sodium Potassium Chloride Carbon Dioxide BUN Creatinine Glucose POC Glucose 109 H Lactic Acid Calcium Phosphorus Magnesium AST ALT Lactate Dehydrogenase CK-MB (CK-2) C-Reactive Protein NT-Pro-B Natriuret Pep Total Protein Albumin Arterial Blood Glucose Urine WBC (Auto) 11/25/19 11/25/19 11/26/19 05:11 11:40 03:12 WBC RBC Hgb Hct MCHC RDW MCV MCH Lymph % (Auto) [place] % (Auto) [place] # Eos # Lymph # (Auto) [place] # (Auto) Eos # (Auto) Seg Neutrophils % Seg Neuts % (Manual) Baso # (Auto) Lymphocytes % (Manual) Monocytes % (Manual) Eosinophils % (Manual) Basophils % (Manual) Seg Neutrophils # Seg Neutrophils # Man Lymphocytes # (Manual) Monocytes # (Manual) Eosinophils # (Manual) Nucleated RBC % Basophils # (Manual) APTT Heparin Anti-Xa Level ABG pH POC ABG pO2 ABG pO2 155.1 H ABG HCO3 27.8 H ABG O2 Saturation ABG Base Excess POC ABG pCO2 ABG Hemoglobin 12.2 L ABG Oxyhemoglobin ABG Glucose Oxyhemoglobin Sodium Potassium Chloride Carbon Dioxide BUN 23 H Creatinine Glucose 110 H POC Glucose 108 H Lactic Acid Calcium Phosphorus Magnesium AST ALT Lactate Dehydrogenase CK-MB (CK-2) C-Reactive Protein NT-Pro-B Natriuret Pep Total Protein Albumin Arterial Blood Glucose Urine WBC (Auto) 11/26/19 11/26/19 11/26/19 06:17 10:43 10:43 WBC 11.4 H RBC Hgb Hct MCHC RDW 17.1 H MCV MCH Lymph % (Auto) [place] % (Auto) [place] # Eos # Lymph # (Auto) [place] # (Auto) Eos # (Auto) Seg Neutrophils % Seg Neuts % (Manual) Baso # (Auto) Lymphocytes % (Manual) Monocytes % (Manual) Eosinophils % (Manual) Basophils % (Manual) Seg Neutrophils # Seg Neutrophils # Man Lymphocytes # (Manual) Monocytes # (Manual) Eosinophils # (Manual) Nucleated RBC % Basophils # (Manual) APTT Heparin Anti-Xa Level ABG pH POC ABG pO2 ABG pO2 ABG HCO3 ABG O2 Saturation ABG Base Excess POC ABG pCO2 ABG Hemoglobin ABG Oxyhemoglobin ABG Glucose Oxyhemoglobin Sodium Potassium Chloride Carbon Dioxide BUN 29 H Creatinine Glucose POC Glucose 107 H Lactic Acid Calcium Phosphorus Magnesium AST ALT Lactate Dehydrogenase CK-MB (CK-2) C-Reactive Protein NT-Pro-B Natriuret Pep Total Protein Albumin Arterial Blood Glucose Urine WBC (Auto) 11/26/19 11/27/19 11/27/19 17:11 01:53 04:11 WBC RBC Hgb Hct MCHC RDW MCV MCH Lymph % (Auto) [place] % (Auto) [place] # Eos # Lymph # (Auto) [place] # (Auto) Eos # (Auto) Seg Neutrophils % Seg Neuts % (Manual) Baso # (Auto) Lymphocytes % (Manual) Monocytes % (Manual) Eosinophils % (Manual) Basophils % (Manual) Seg Neutrophils # Seg Neutrophils # Man Lymphocytes # (Manual) Monocytes # (Manual) Eosinophils # (Manual) Nucleated RBC % Basophils # (Manual) APTT Heparin Anti-Xa Level ABG pH POC ABG pO2 ABG pO2 ABG HCO3 29.2 H ABG O2 Saturation ABG Base Excess 3.4 H POC ABG pCO2 ABG Hemoglobin 13.3 L ABG Oxyhemoglobin ABG Glucose Oxyhemoglobin 94.5 L Sodium Potassium Chloride Carbon Dioxide BUN Creatinine Glucose POC Glucose 113 H 108 H Lactic Acid Calcium Phosphorus Magnesium AST ALT Lactate Dehydrogenase CK-MB (CK-2) C-Reactive Protein NT-Pro-B Natriuret Pep Total Protein Albumin Arterial Blood Glucose Urine WBC (Auto) 11/27/19 11/28/19 11/28/19 05:27 05:00 05:25 WBC RBC Hgb Hct MCHC RDW MCV MCH Lymph % (Auto) [place] % (Auto) [place] # Eos # Lymph # (Auto) [place] # (Auto) Eos # (Auto) Seg Neutrophils % Seg Neuts % (Manual) Baso # (Auto) Lymphocytes % (Manual) Monocytes % (Manual) Eosinophils % (Manual) Basophils % (Manual) Seg Neutrophils # Seg Neutrophils # Man Lymphocytes # (Manual) Monocytes # (Manual) Eosinophils # (Manual) Nucleated RBC % Basophils # (Manual) APTT Heparin Anti-Xa Level ABG pH POC ABG pO2 68.1 L ABG pO2 ABG HCO3 ABG O2 Saturation ABG Base Excess POC ABG pCO2 ABG Hemoglobin ABG Oxyhemoglobin 91.2 L ABG Glucose Oxyhemoglobin Sodium Potassium Chloride Carbon Dioxide BUN Creatinine Glucose POC Glucose 111 H 110 H Lactic Acid Calcium Phosphorus Magnesium AST ALT Lactate Dehydrogenase CK-MB (CK-2) C-Reactive Protein NT-Pro-B Natriuret Pep Total Protein Albumin Arterial Blood Glucose Urine WBC (Auto) 11/28/19 11/28/19 11/28/19 12:08 13:47 13:47 WBC 11.3 H RBC Hgb Hct MCHC RDW 16.1 H MCV MCH Lymph % (Auto) [place] % (Auto) 9.9 H [place] # 1.1 H Eos # Lymph # (Auto) [place] # (Auto) Eos # (Auto) Seg Neutrophils % 71.4 H Seg Neuts % (Manual) Baso # (Auto) Lymphocytes % (Manual) Monocytes % (Manual) Eosinophils % (Manual) Basophils % (Manual) Seg Neutrophils # 8.1 H Seg Neutrophils # Man Lymphocytes # (Manual) Monocytes # (Manual) Eosinophils # (Manual) Nucleated RBC % Basophils # (Manual) APTT Heparin Anti-Xa Level ABG pH POC ABG pO2 ABG pO2 ABG HCO3 ABG O2 Saturation ABG Base Excess POC ABG pCO2 ABG Hemoglobin ABG Oxyhemoglobin ABG Glucose Oxyhemoglobin Sodium Potassium Chloride Carbon Dioxide BUN 23 H Creatinine Glucose 123 H POC Glucose 112 H Lactic Acid Calcium Phosphorus Magnesium AST ALT Lactate Dehydrogenase CK-MB (CK-2) C-Reactive Protein NT-Pro-B Natriuret Pep Total Protein Albumin 3.7 L Arterial Blood Glucose Urine WBC (Auto) 11/28/19 11/29/19 11/29/19 17:26 03:55 17:04 WBC RBC Hgb Hct MCHC RDW MCV MCH Lymph % (Auto) [place] % (Auto) [place] # Eos # Lymph # (Auto) [place] # (Auto) Eos # (Auto) Seg Neutrophils % Seg Neuts % (Manual) Baso # (Auto) Lymphocytes % (Manual) Monocytes % (Manual) Eosinophils % (Manual) Basophils % (Manual) Seg Neutrophils # Seg Neutrophils # Man Lymphocytes # (Manual) Monocytes # (Manual) Eosinophils # (Manual) Nucleated RBC % Basophils # (Manual) APTT Heparin Anti-Xa Level ABG pH POC ABG pO2 ABG pO2 65.7 L ABG HCO3 28.3 H ABG O2 Saturation 93.9 L ABG Base Excess 3.6 H POC ABG pCO2 ABG Hemoglobin 13.3 L ABG Oxyhemoglobin ABG Glucose Oxyhemoglobin 91.5 L Sodium Potassium Chloride Carbon Dioxide BUN Creatinine Glucose POC Glucose 123 H 119 H Lactic Acid Calcium Phosphorus Magnesium AST ALT Lactate Dehydrogenase CK-MB (CK-2) C-Reactive Protein NT-Pro-B Natriuret Pep Total Protein Albumin Arterial Blood Glucose Urine WBC (Auto) 11/30/19 11/30/19 11/30/19 04:17 04:17 04:56 WBC 13.4 H RBC Hgb Hct MCHC RDW 15.6 H MCV MCH Lymph % (Auto) [place] % (Auto) [place] # Eos # Lymph # (Auto) [place] # (Auto) Eos # (Auto) Seg Neutrophils % Seg Neuts % (Manual) Baso # (Auto) Lymphocytes % (Manual) Monocytes % (Manual) Eosinophils % (Manual) Basophils % (Manual) Seg Neutrophils # Seg Neutrophils # Man Lymphocytes # (Manual) Monocytes # (Manual) Eosinophils # (Manual) Nucleated RBC % Basophils # (Manual) APTT Heparin Anti-Xa Level ABG pH POC ABG pO2 ABG pO2 56.3 L ABG HCO3 29.3 H ABG O2 Saturation 91.5 L ABG Base Excess 4.7 H POC ABG pCO2 ABG Hemoglobin 12.1 L ABG Oxyhemoglobin ABG Glucose Oxyhemoglobin 89.2 L Sodium 147 H Potassium Chloride Carbon Dioxide BUN 30 H Creatinine Glucose 124 H POC Glucose Lactic Acid Calcium Phosphorus Magnesium AST ALT Lactate Dehydrogenase CK-MB (CK-2) C-Reactive Protein NT-Pro-B Natriuret Pep Total Protein Albumin 3.8 L Arterial Blood Glucose Urine WBC (Auto) 11/30/19 11/30/19 11/30/19 05:51 11:54 18:17 WBC RBC Hgb Hct MCHC RDW MCV MCH Lymph % (Auto) [place] % (Auto) [place] # Eos # Lymph # (Auto) [place] # (Auto) Eos # (Auto) Seg Neutrophils % Seg Neuts % (Manual) Baso # (Auto) Lymphocytes % (Manual) Monocytes % (Manual) Eosinophils % (Manual) Basophils % (Manual) Seg Neutrophils # Seg Neutrophils # Man Lymphocytes # (Manual) Monocytes # (Manual) Eosinophils # (Manual) Nucleated RBC % Basophils # (Manual) APTT Heparin Anti-Xa Level ABG pH POC ABG pO2 ABG pO2 ABG HCO3 ABG O2 Saturation ABG Base Excess POC ABG pCO2 ABG Hemoglobin ABG Oxyhemoglobin ABG Glucose Oxyhemoglobin Sodium Potassium Chloride Carbon Dioxide BUN Creatinine Glucose POC Glucose 127 H 115 H 143 H Lactic Acid Calcium Phosphorus Magnesium AST ALT Lactate Dehydrogenase CK-MB (CK-2) C-Reactive Protein NT-Pro-B Natriuret Pep Total Protein Albumin Arterial Blood Glucose Urine WBC (Auto) 12/01/19 12/01/19 12/01/19 01:18 05:22 12:16 WBC RBC Hgb Hct MCHC RDW MCV MCH Lymph % (Auto) [place] % (Auto) [place] # Eos # Lymph # (Auto) [place] # (Auto) Eos # (Auto) Seg Neutrophils % Seg Neuts % (Manual) Baso # (Auto) Lymphocytes % (Manual) Monocytes % (Manual) Eosinophils % (Manual) Basophils % (Manual) Seg Neutrophils # Seg Neutrophils # Man Lymphocytes # (Manual) Monocytes # (Manual) Eosinophils # (Manual) Nucleated RBC % Basophils # (Manual) APTT Heparin Anti-Xa Level ABG pH POC ABG pO2 ABG pO2 ABG HCO3 ABG O2 Saturation ABG Base Excess POC ABG pCO2 ABG Hemoglobin ABG Oxyhemoglobin ABG Glucose Oxyhemoglobin Sodium Potassium 3.5 L Chloride 107.8 H Carbon Dioxide BUN 37 H Creatinine Glucose 157 H POC Glucose 118 H 148 H Lactic Acid Calcium 8.2 L D Phosphorus Magnesium AST 48 H ALT 60 H Lactate Dehydrogenase 194 H CK-MB (CK-2) C-Reactive Protein 8.50 H NT-Pro-B Natriuret Pep Total Protein 5.5 L Albumin 2.8 L Arterial Blood Glucose Urine WBC (Auto) 12/01/19 12/02/19 12/02/19 18:04 00:05 05:16 WBC 11.4 H RBC Hgb Hct MCHC RDW 15.9 H MCV MCH Lymph % (Auto) [place] % (Auto) 9.9 H [place] # 1.1 H Eos # Lymph # (Auto) [place] # (Auto) Eos # (Auto) Seg Neutrophils % 70.3 H Seg Neuts % (Manual) Baso # (Auto) Lymphocytes % (Manual) Monocytes % (Manual) Eosinophils % (Manual) Basophils % (Manual) Seg Neutrophils # 8.0 H Seg Neutrophils # Man Lymphocytes # (Manual) Monocytes # (Manual) Eosinophils # (Manual) Nucleated RBC % Basophils # (Manual) APTT Heparin Anti-Xa Level ABG pH POC ABG pO2 ABG pO2 ABG HCO3 ABG O2 Saturation ABG Base Excess POC ABG pCO2 ABG Hemoglobin ABG Oxyhemoglobin ABG Glucose Oxyhemoglobin Sodium Potassium Chloride Carbon Dioxide BUN Creatinine Glucose POC Glucose 143 H 107 H Lactic Acid Calcium Phosphorus Magnesium AST ALT Lactate Dehydrogenase CK-MB (CK-2) C-Reactive Protein NT-Pro-B Natriuret Pep Total Protein Albumin Arterial Blood Glucose Urine WBC (Auto) 12/02/19 12/02/19 12/02/19 05:16 06:03 11:52 WBC RBC Hgb Hct MCHC RDW MCV MCH Lymph % (Auto) [place] % (Auto) [place] # Eos # Lymph # (Auto) [place] # (Auto) Eos # (Auto) Seg Neutrophils % Seg Neuts % (Manual) Baso # (Auto) Lymphocytes % (Manual) Monocytes % (Manual) Eosinophils % (Manual) Basophils % (Manual) Seg Neutrophils # Seg Neutrophils # Man Lymphocytes # (Manual) Monocytes # (Manual) Eosinophils # (Manual) Nucleated RBC % Basophils # (Manual) APTT Heparin Anti-Xa Level ABG pH POC ABG pO2 ABG pO2 ABG HCO3 ABG O2 Saturation ABG Base Excess POC ABG pCO2 ABG Hemoglobin ABG Oxyhemoglobin ABG Glucose Oxyhemoglobin Sodium 146 H Potassium Chloride Carbon Dioxide BUN 28 H Creatinine Glucose 123 H POC Glucose 110 H 152 H Lactic Acid Calcium Phosphorus Magnesium AST ALT Lactate Dehydrogenase CK-MB (CK-2) C-Reactive Protein NT-Pro-B Natriuret Pep Total Protein Albumin Arterial Blood Glucose Urine WBC (Auto) 12/02/19 12/02/19 12/02/19 12:58 17:58 23:36 WBC RBC Hgb Hct MCHC RDW MCV MCH Lymph % (Auto) [place] % (Auto) [place] # Eos # Lymph # (Auto) [place] # (Auto) Eos # (Auto) Seg Neutrophils % Seg Neuts % (Manual) Baso # (Auto) Lymphocytes % (Manual) Monocytes % (Manual) Eosinophils % (Manual) Basophils % (Manual) Seg Neutrophils # Seg Neutrophils # Man Lymphocytes # (Manual) Monocytes # (Manual) Eosinophils # (Manual) Nucleated RBC % Basophils # (Manual) APTT Heparin Anti-Xa Level ABG pH POC ABG pO2 78.1 L ABG pO2 ABG HCO3 ABG O2 Saturation ABG Base Excess POC ABG pCO2 ABG Hemoglobin ABG Oxyhemoglobin ABG Glucose Oxyhemoglobin Sodium Potassium Chloride Carbon Dioxide BUN Creatinine Glucose POC Glucose 120 H 123 H Lactic Acid Calcium Phosphorus Magnesium AST ALT Lactate Dehydrogenase CK-MB (CK-2) C-Reactive Protein NT-Pro-B Natriuret Pep Total Protein Albumin Arterial Blood Glucose Urine WBC (Auto) 12/03/19 12/03/19 12/03/19 06:03 06:14 11:46 WBC RBC Hgb Hct MCHC RDW MCV MCH Lymph % (Auto) [place] % (Auto) [place] # Eos # Lymph # (Auto) [place] # (Auto) Eos # (Auto) Seg Neutrophils % Seg Neuts % (Manual) Baso # (Auto) Lymphocytes % (Manual) Monocytes % (Manual) Eosinophils % (Manual) Basophils % (Manual) Seg Neutrophils # Seg Neutrophils # Man Lymphocytes # (Manual) Monocytes # (Manual) Eosinophils # (Manual) Nucleated RBC % Basophils # (Manual) APTT Heparin Anti-Xa Level ABG pH POC ABG pO2 ABG pO2 ABG HCO3 ABG O2 Saturation ABG Base Excess POC ABG pCO2 ABG Hemoglobin ABG Oxyhemoglobin ABG Glucose Oxyhemoglobin Sodium Potassium Chloride Carbon Dioxide BUN Creatinine Glucose POC Glucose 142 H 130 H Lactic Acid Calcium Phosphorus Magnesium AST ALT Lactate Dehydrogenase CK-MB (CK-2) C-Reactive Protein NT-Pro-B Natriuret Pep Total Protein Albumin Arterial Blood Glucose Urine WBC (Auto) 8.0 H 12/03/19 12/03/19 12/04/19 15:50 17:39 00:04 WBC RBC Hgb Hct MCHC RDW MCV MCH Lymph % (Auto) [place] % (Auto) [place] # Eos # Lymph # (Auto) [place] # (Auto) Eos # (Auto) Seg Neutrophils % Seg Neuts % (Manual) Baso # (Auto) Lymphocytes % (Manual) Monocytes % (Manual) Eosinophils % (Manual) Basophils % (Manual) Seg Neutrophils # Seg Neutrophils # Man Lymphocytes # (Manual) Monocytes # (Manual) Eosinophils # (Manual) Nucleated RBC % Basophils # (Manual) APTT Heparin Anti-Xa Level ABG pH POC ABG pO2 ABG pO2 ABG HCO3 ABG O2 Saturation ABG Base Excess POC ABG pCO2 ABG Hemoglobin ABG Oxyhemoglobin ABG Glucose Oxyhemoglobin Sodium Potassium Chloride Carbon Dioxide BUN Creatinine Glucose POC Glucose 146 H 133 H Lactic Acid Calcium Phosphorus 2.40 L Magnesium AST ALT Lactate Dehydrogenase CK-MB (CK-2) C-Reactive Protein NT-Pro-B Natriuret Pep Total Protein Albumin Arterial Blood Glucose Urine WBC (Auto) 12/04/19 12/04/19 12/04/19 03:58 03:58 05:22 WBC 12.5 H RBC Hgb 11.2 L Hct 35.2 L MCHC RDW 16.0 H MCV MCH Lymph % (Auto) [place] % (Auto) 9.6 H [place] # 1.2 H Eos # 0.5 H Lymph # (Auto) [place] # (Auto) Eos # (Auto) Seg Neutrophils % Seg Neuts % (Manual) Baso # (Auto) Lymphocytes % (Manual) Monocytes % (Manual) Eosinophils % (Manual) Basophils % (Manual) Seg Neutrophils # 8.6 H Seg Neutrophils # Man Lymphocytes # (Manual) Monocytes # (Manual) Eosinophils # (Manual) Nucleated RBC % Basophils # (Manual) APTT Heparin Anti-Xa Level ABG pH POC ABG pO2 ABG pO2 ABG HCO3 ABG O2 Saturation ABG Base Excess POC ABG pCO2 ABG Hemoglobin ABG Oxyhemoglobin ABG Glucose Oxyhemoglobin Sodium 146 H Potassium Chloride 108.6 H Carbon Dioxide BUN 30 H Creatinine 0.7 L Glucose 121 H POC Glucose 132 H Lactic Acid Calcium Phosphorus Magnesium AST ALT Lactate Dehydrogenase CK-MB (CK-2) C-Reactive Protein NT-Pro-B Natriuret Pep Total Protein Albumin Arterial Blood Glucose Urine WBC (Auto) 12/04/19 12/04/19 12/05/19 13:26 18:43 00:19 WBC RBC Hgb Hct MCHC RDW MCV MCH Lymph % (Auto) [place] % (Auto) [place] # Eos # Lymph # (Auto) [place] # (Auto) Eos # (Auto) Seg Neutrophils % Seg Neuts % (Manual) Baso # (Auto) Lymphocytes % (Manual) Monocytes % (Manual) Eosinophils % (Manual) Basophils % (Manual) Seg Neutrophils # Seg Neutrophils # Man Lymphocytes # (Manual) Monocytes # (Manual) Eosinophils # (Manual) Nucleated RBC % Basophils # (Manual) APTT Heparin Anti-Xa Level ABG pH POC ABG pO2 ABG pO2 ABG HCO3 ABG O2 Saturation ABG Base Excess POC ABG pCO2 ABG Hemoglobin ABG Oxyhemoglobin ABG Glucose Oxyhemoglobin Sodium Potassium Chloride Carbon Dioxide BUN Creatinine Glucose POC Glucose 185 H 156 H 150 H Lactic Acid Calcium Phosphorus Magnesium AST ALT Lactate Dehydrogenase CK-MB (CK-2) C-Reactive Protein NT-Pro-B Natriuret Pep Total Protein Albumin Arterial Blood Glucose Urine WBC (Auto) 12/05/19 12/05/19 12/05/19 03:37 03:37 05:14 WBC 16.3 H RBC Hgb 11.4 L Hct MCHC RDW 15.6 H MCV MCH Lymph % (Auto) 9.9 L [place] % (Auto) 9.7 H [place] # 1.6 H Eos # Lymph # (Auto) [place] # (Auto) Eos # (Auto) Seg Neutrophils % 78.0 H Seg Neuts % (Manual) Baso # (Auto) Lymphocytes % (Manual) Monocytes % (Manual) Eosinophils % (Manual) Basophils % (Manual) Seg Neutrophils # 12.7 H Seg Neutrophils # Man Lymphocytes # (Manual) Monocytes # (Manual) Eosinophils # (Manual) Nucleated RBC % Basophils # (Manual) APTT Heparin Anti-Xa Level ABG pH POC ABG pO2 ABG pO2 ABG HCO3 ABG O2 Saturation ABG Base Excess POC ABG pCO2 ABG Hemoglobin ABG Oxyhemoglobin ABG Glucose Oxyhemoglobin Sodium 146 H Potassium Chloride 107.2 H Carbon Dioxide BUN 27 H Creatinine 0.7 L Glucose 171 H POC Glucose 168 H Lactic Acid Calcium Phosphorus Magnesium AST ALT Lactate Dehydrogenase CK-MB (CK-2) C-Reactive Protein NT-Pro-B Natriuret Pep Total Protein Albumin Arterial Blood Glucose Urine WBC (Auto) 12/05/19 12/05/19 12/05/19 12:31 18:10 23:58 WBC RBC Hgb Hct MCHC RDW MCV MCH Lymph % (Auto) [place] % (Auto) [place] # Eos # Lymph # (Auto) [place] # (Auto) Eos # (Auto) Seg Neutrophils % Seg Neuts % (Manual) Baso # (Auto) Lymphocytes % (Manual) Monocytes % (Manual) Eosinophils % (Manual) Basophils % (Manual) Seg Neutrophils # Seg Neutrophils # Man Lymphocytes # (Manual) Monocytes # (Manual) Eosinophils # (Manual) Nucleated RBC % Basophils # (Manual) APTT Heparin Anti-Xa Level ABG pH POC ABG pO2 ABG pO2 ABG HCO3 ABG O2 Saturation ABG Base Excess POC ABG pCO2 ABG Hemoglobin ABG Oxyhemoglobin ABG Glucose Oxyhemoglobin Sodium Potassium Chloride Carbon Dioxide BUN Creatinine Glucose POC Glucose 159 H 198 H 115 H Lactic Acid Calcium Phosphorus Magnesium AST ALT Lactate Dehydrogenase CK-MB (CK-2) C-Reactive Protein NT-Pro-B Natriuret Pep Total Protein Albumin Arterial Blood Glucose Urine WBC (Auto) 12/06/19 12/06/19 12/06/19 05:24 05:24 05:25 WBC 14.9 H RBC Hgb 10.8 L Hct 34.0 L MCHC RDW 15.6 H MCV MCH Lymph % (Auto) 10.7 L [place] % (Auto) 8.3 H [place] # 1.2 H Eos # Lymph # (Auto) [place] # (Auto) Eos # (Auto) Seg Neutrophils % 78.7 H Seg Neuts % (Manual) Baso # (Auto) Lymphocytes % (Manual) Monocytes % (Manual) Eosinophils % (Manual) Basophils % (Manual) Seg Neutrophils # 11.7 H Seg Neutrophils # Man Lymphocytes # (Manual) Monocytes # (Manual) Eosinophils # (Manual) Nucleated RBC % Basophils # (Manual) APTT Heparin Anti-Xa Level ABG pH POC ABG pO2 ABG pO2 ABG HCO3 ABG O2 Saturation ABG Base Excess POC ABG pCO2 ABG Hemoglobin ABG Oxyhemoglobin ABG Glucose Oxyhemoglobin Sodium 148 H Potassium 5.1 H Chloride 107.6 H Carbon Dioxide BUN 27 H Creatinine 0.7 L Glucose 155 H POC Glucose 157 H Lactic Acid Calcium Phosphorus Magnesium AST ALT Lactate Dehydrogenase CK-MB (CK-2) C-Reactive Protein NT-Pro-B Natriuret Pep Total Protein Albumin Arterial Blood Glucose Urine WBC (Auto) 12/07/19 12/07/19 12/07/19 00:13 05:34 11:33 WBC RBC Hgb Hct MCHC RDW MCV MCH Lymph % (Auto) [place] % (Auto) [place] # Eos # Lymph # (Auto) [place] # (Auto) Eos # (Auto) Seg Neutrophils % Seg Neuts % (Manual) Baso # (Auto) Lymphocytes % (Manual) Monocytes % (Manual) Eosinophils % (Manual) Basophils % (Manual) Seg Neutrophils # Seg Neutrophils # Man Lymphocytes # (Manual) Monocytes # (Manual) Eosinophils # (Manual) Nucleated RBC % Basophils # (Manual) APTT Heparin Anti-Xa Level ABG pH POC ABG pO2 ABG pO2 ABG HCO3 ABG O2 Saturation ABG Base Excess POC ABG pCO2 ABG Hemoglobin ABG Oxyhemoglobin ABG Glucose Oxyhemoglobin Sodium Potassium Chloride Carbon Dioxide BUN Creatinine Glucose POC Glucose 142 H 111 H 169 H Lactic Acid Calcium Phosphorus Magnesium AST ALT Lactate Dehydrogenase CK-MB (CK-2) C-Reactive Protein NT-Pro-B Natriuret Pep Total Protein Albumin Arterial Blood Glucose Urine WBC (Auto) 12/07/19 12/07/19 12/07/19 12:41 13:25 18:19 WBC 12.4 H RBC 3.53 L Hgb 10.2 L Hct 32.1 L MCHC RDW 15.3 H MCV MCH Lymph % (Auto) 10.6 L [place] % (Auto) 7.8 H [place] # 1.0 H Eos # Lymph # (Auto) [place] # (Auto) Eos # (Auto) Seg Neutrophils % 77.6 H Seg Neuts % (Manual) Baso # (Auto) Lymphocytes % (Manual) Monocytes % (Manual) Eosinophils % (Manual) Basophils % (Manual) Seg Neutrophils # 9.6 H Seg Neutrophils # Man Lymphocytes # (Manual) Monocytes # (Manual) Eosinophils # (Manual) Nucleated RBC % Basophils # (Manual) APTT Heparin Anti-Xa Level ABG pH POC ABG pO2 ABG pO2 ABG HCO3 ABG O2 Saturation ABG Base Excess POC ABG pCO2 ABG Hemoglobin ABG Oxyhemoglobin ABG Glucose Oxyhemoglobin Sodium 149 H Potassium Chloride 108.4 H Carbon Dioxide BUN 26 H Creatinine 0.6 L Glucose 149 H POC Glucose 164 H Lactic Acid Calcium Phosphorus Magnesium 2.60 H AST 121 H ALT 145 H Lactate Dehydrogenase CK-MB (CK-2) C-Reactive Protein NT-Pro-B Natriuret Pep Total Protein Albumin 2.6 L Arterial Blood Glucose Urine WBC (Auto) 12/07/19 12/08/19 12/08/19 22:25 00:02 03:55 WBC 13.3 H RBC 3.40 L Hgb 9.7 L Hct 30.8 L MCHC 31 L RDW 15.5 H MCV MCH Lymph % (Auto) [place] % (Auto) 8.1 H [place] # 1.1 H Eos # Lymph # (Auto) [place] # (Auto) Eos # (Auto) Seg Neutrophils % 73.0 H Seg Neuts % (Manual) Baso # (Auto) Lymphocytes % (Manual) Monocytes % (Manual) Eosinophils % (Manual) Basophils % (Manual) Seg Neutrophils # 9.7 H Seg Neutrophils # Man Lymphocytes # (Manual) Monocytes # (Manual) Eosinophils # (Manual) Nucleated RBC % Basophils # (Manual) APTT Heparin Anti-Xa Level 0.12 L ABG pH POC ABG pO2 ABG pO2 ABG HCO3 ABG O2 Saturation ABG Base Excess POC ABG pCO2 ABG Hemoglobin ABG Oxyhemoglobin ABG Glucose Oxyhemoglobin Sodium Potassium Chloride Carbon Dioxide BUN Creatinine Glucose POC Glucose 151 H Lactic Acid Calcium Phosphorus Magnesium AST ALT Lactate Dehydrogenase CK-MB (CK-2) C-Reactive Protein NT-Pro-B Natriuret Pep Total Protein Albumin Arterial Blood Glucose Urine WBC (Auto) 12/08/19 12/08/19 12/08/19 03:55 05:21 06:01 WBC RBC Hgb Hct MCHC RDW MCV MCH Lymph % (Auto) [place] % (Auto) [place] # Eos # Lymph # (Auto) [place] # (Auto) Eos # (Auto) Seg Neutrophils % Seg Neuts % (Manual) Baso # (Auto) Lymphocytes % (Manual) Monocytes % (Manual) Eosinophils % (Manual) Basophils % (Manual) Seg Neutrophils # Seg Neutrophils # Man Lymphocytes # (Manual) Monocytes # (Manual) Eosinophils # (Manual) Nucleated RBC % Basophils # (Manual) APTT Heparin Anti-Xa Level 0.20 L ABG pH POC ABG pO2 ABG pO2 ABG HCO3 ABG O2 Saturation ABG Base Excess POC ABG pCO2 ABG Hemoglobin ABG Oxyhemoglobin ABG Glucose Oxyhemoglobin Sodium 149 H Potassium Chloride 108.0 H Carbon Dioxide BUN 28 H Creatinine 0.6 L Glucose 144 H POC Glucose 143 H Lactic Acid Calcium Phosphorus Magnesium AST 98 H ALT 145 H Lactate Dehydrogenase CK-MB (CK-2) C-Reactive Protein NT-Pro-B Natriuret Pep Total Protein 6.0 L Albumin 2.4 L Arterial Blood Glucose Urine WBC (Auto) 12/08/19 12/08/19 12/08/19 12:08 18:11 23:53 WBC RBC Hgb Hct MCHC RDW MCV MCH Lymph % (Auto) [place] % (Auto) [place] # Eos # Lymph # (Auto) [place] # (Auto) Eos # (Auto) Seg Neutrophils % Seg Neuts % (Manual) Baso # (Auto) Lymphocytes % (Manual) Monocytes % (Manual) Eosinophils % (Manual) Basophils % (Manual) Seg Neutrophils # Seg Neutrophils # Man Lymphocytes # (Manual) Monocytes # (Manual) Eosinophils # (Manual) Nucleated RBC % Basophils # (Manual) APTT Heparin Anti-Xa Level ABG pH POC ABG pO2 ABG pO2 ABG HCO3 ABG O2 Saturation ABG Base Excess POC ABG pCO2 ABG Hemoglobin ABG Oxyhemoglobin ABG Glucose Oxyhemoglobin Sodium Potassium Chloride Carbon Dioxide BUN Creatinine Glucose POC Glucose 172 H 122 H 162 H Lactic Acid Calcium Phosphorus Magnesium AST ALT Lactate Dehydrogenase CK-MB (CK-2) C-Reactive Protein NT-Pro-B Natriuret Pep Total Protein Albumin Arterial Blood Glucose Urine WBC (Auto) 12/09/19 12/09/19 12/09/19 04:03 04:03 05:53 WBC RBC Hgb 9.1 L Hct 28.9 L MCHC RDW MCV MCH Lymph % (Auto) [place] % (Auto) [place] # Eos # Lymph # (Auto) [place] # (Auto) Eos # (Auto) Seg Neutrophils % Seg Neuts % (Manual) Baso # (Auto) Lymphocytes % (Manual) Monocytes % (Manual) Eosinophils % (Manual) Basophils % (Manual) Seg Neutrophils # Seg Neutrophils # Man Lymphocytes # (Manual) Monocytes # (Manual) Eosinophils # (Manual) Nucleated RBC % Basophils # (Manual) APTT Heparin Anti-Xa Level 0.15 L ABG pH POC ABG pO2 ABG pO2 ABG HCO3 ABG O2 Saturation ABG Base Excess POC ABG pCO2 ABG Hemoglobin ABG Oxyhemoglobin ABG Glucose Oxyhemoglobin Sodium Potassium Chloride Carbon Dioxide BUN Creatinine Glucose POC Glucose 124 H Lactic Acid Calcium Phosphorus Magnesium AST ALT Lactate Dehydrogenase CK-MB (CK-2) C-Reactive Protein NT-Pro-B Natriuret Pep Total Protein Albumin Arterial Blood Glucose Urine WBC (Auto) 12/09/19 12/09/19 12/10/19 09:43 12:41 00:13 WBC RBC Hgb Hct MCHC RDW MCV MCH Lymph % (Auto) [place] % (Auto) [place] # Eos # Lymph # (Auto) [place] # (Auto) Eos # (Auto) Seg Neutrophils % Seg Neuts % (Manual) Baso # (Auto) Lymphocytes % (Manual) Monocytes % (Manual) Eosinophils % (Manual) Basophils % (Manual) Seg Neutrophils # Seg Neutrophils # Man Lymphocytes # (Manual) Monocytes # (Manual) Eosinophils # (Manual) Nucleated RBC % Basophils # (Manual) APTT Heparin Anti-Xa Level ABG pH POC ABG pO2 ABG pO2 ABG HCO3 ABG O2 Saturation ABG Base Excess POC ABG pCO2 ABG Hemoglobin ABG Oxyhemoglobin ABG Glucose Oxyhemoglobin Sodium Potassium Chloride Carbon Dioxide BUN 25 H Creatinine 0.6 L Glucose 131 H POC Glucose 109 H 120 H Lactic Acid Calcium Phosphorus Magnesium AST ALT Lactate Dehydrogenase CK-MB (CK-2) C-Reactive Protein NT-Pro-B Natriuret Pep Total Protein Albumin Arterial Blood Glucose Urine WBC (Auto) 12/10/19 12/10/19 12/10/19 04:14 04:14 12:00 WBC 13.3 H RBC 3.34 L Hgb 9.6 L Hct 30.4 L MCHC RDW 15.4 H MCV MCH Lymph % (Auto) [place] % (Auto) [place] # Eos # Lymph # (Auto) [place] # (Auto) Eos # (Auto) Seg Neutrophils % Seg Neuts % (Manual) 75.0 H Baso # (Auto) Lymphocytes % (Manual) 13.0 L Monocytes % (Manual) 8.0 H Eosinophils % (Manual) Basophils % (Manual) 2.0 H Seg Neutrophils # Seg Neutrophils # Man 10.0 H Lymphocytes # (Manual) Monocytes # (Manual) 1.1 H Eosinophils # (Manual) Nucleated RBC % Basophils # (Manual) 0.3 H APTT Heparin Anti-Xa Level ABG pH POC ABG pO2 ABG pO2 ABG HCO3 ABG O2 Saturation ABG Base Excess POC ABG pCO2 ABG Hemoglobin ABG Oxyhemoglobin ABG Glucose Oxyhemoglobin Sodium 147 H Potassium Chloride 108.3 H Carbon Dioxide BUN 21 H Creatinine 0.6 L Glucose 104 H POC Glucose 133 H Lactic Acid Calcium Phosphorus Magnesium AST ALT Lactate Dehydrogenase CK-MB (CK-2) C-Reactive Protein NT-Pro-B Natriuret Pep Total Protein Albumin Arterial Blood Glucose Urine WBC (Auto) 12/10/19 12/10/19 12/11/19 18:44 21:20 00:08 WBC 14.9 H RBC 3.36 L Hgb 9.6 L Hct 30.5 L MCHC RDW 15.4 H MCV MCH Lymph % (Auto) [place] % (Auto) [place] # Eos # Lymph # (Auto) [place] # (Auto) Eos # (Auto) Seg Neutrophils % Seg Neuts % (Manual) Baso # (Auto) Lymphocytes % (Manual) Monocytes % (Manual) Eosinophils % (Manual) Basophils % (Manual) Seg Neutrophils # Seg Neutrophils # Man Lymphocytes # (Manual) Monocytes # (Manual) Eosinophils # (Manual) Nucleated RBC % Basophils # (Manual) APTT Heparin Anti-Xa Level ABG pH POC ABG pO2 ABG pO2 ABG HCO3 ABG O2 Saturation ABG Base Excess POC ABG pCO2 ABG Hemoglobin ABG Oxyhemoglobin ABG Glucose Oxyhemoglobin Sodium Potassium Chloride Carbon Dioxide BUN Creatinine Glucose POC Glucose 119 H 134 H Lactic Acid Calcium Phosphorus Magnesium AST ALT Lactate Dehydrogenase CK-MB (CK-2) C-Reactive Protein NT-Pro-B Natriuret Pep Total Protein Albumin Arterial Blood Glucose Urine WBC (Auto) 12/11/19 12/11/19 12/11/19 03:54 07:28 08:36 WBC 11.9 H RBC 3.25 L Hgb 9.6 L Hct 29.2 L MCHC RDW 15.7 H MCV MCH Lymph % (Auto) [place] % (Auto) [place] # Eos # Lymph # (Auto) [place] # (Auto) Eos # (Auto) Seg Neutrophils % Seg Neuts % (Manual) Baso # (Auto) Lymphocytes % (Manual) Monocytes % (Manual) Eosinophils % (Manual) Basophils % (Manual) Seg Neutrophils # Seg Neutrophils # Man Lymphocytes # (Manual) Monocytes # (Manual) Eosinophils # (Manual) Nucleated RBC % Basophils # (Manual) APTT Heparin Anti-Xa Level 0.10 L 0.16 L ABG pH POC ABG pO2 ABG pO2 ABG HCO3 ABG O2 Saturation ABG Base Excess POC ABG pCO2 ABG Hemoglobin ABG Oxyhemoglobin ABG Glucose Oxyhemoglobin Sodium Potassium Chloride Carbon Dioxide BUN Creatinine Glucose POC Glucose Lactic Acid Calcium Phosphorus Magnesium AST ALT Lactate Dehydrogenase CK-MB (CK-2) C-Reactive Protein NT-Pro-B Natriuret Pep Total Protein Albumin Arterial Blood Glucose Urine WBC (Auto) 12/11/19 12/11/19 12/11/19 08:36 11:45 17:15 WBC RBC Hgb Hct MCHC RDW MCV MCH Lymph % (Auto) [place] % (Auto) [place] # Eos # Lymph # (Auto) [place] # (Auto) Eos # (Auto) Seg Neutrophils % Seg Neuts % (Manual) Baso # (Auto) Lymphocytes % (Manual) Monocytes % (Manual) Eosinophils % (Manual) Basophils % (Manual) Seg Neutrophils # Seg Neutrophils # Man Lymphocytes # (Manual) Monocytes # (Manual) Eosinophils # (Manual) Nucleated RBC % Basophils # (Manual) APTT Heparin Anti-Xa Level ABG pH POC ABG pO2 ABG pO2 ABG HCO3 ABG O2 Saturation ABG Base Excess POC ABG pCO2 ABG Hemoglobin ABG Oxyhemoglobin ABG Glucose Oxyhemoglobin Sodium Potassium Chloride Carbon Dioxide BUN Creatinine 0.5 L Glucose 128 H POC Glucose 136 H 109 H Lactic Acid Calcium Phosphorus Magnesium AST ALT Lactate Dehydrogenase CK-MB (CK-2) C-Reactive Protein NT-Pro-B Natriuret Pep Total Protein Albumin Arterial Blood Glucose Urine WBC (Auto) 12/12/19 12/12/19 12/12/19 00:03 05:53 05:53 WBC RBC Hgb 8.8 L Hct 27.6 L MCHC RDW MCV MCH Lymph % (Auto) [place] % (Auto) [place] # Eos # Lymph # (Auto) [place] # (Auto) Eos # (Auto) Seg Neutrophils % Seg Neuts % (Manual) Baso # (Auto) Lymphocytes % (Manual) Monocytes % (Manual) Eosinophils % (Manual) Basophils % (Manual) Seg Neutrophils # Seg Neutrophils # Man Lymphocytes # (Manual) Monocytes # (Manual) Eosinophils # (Manual) Nucleated RBC % Basophils # (Manual) APTT Heparin Anti-Xa Level 0.22 L ABG pH POC ABG pO2 ABG pO2 ABG HCO3 ABG O2 Saturation ABG Base Excess POC ABG pCO2 ABG Hemoglobin ABG Oxyhemoglobin ABG Glucose Oxyhemoglobin Sodium Potassium Chloride Carbon Dioxide BUN Creatinine Glucose POC Glucose 116 H Lactic Acid Calcium Phosphorus Magnesium AST ALT Lactate Dehydrogenase CK-MB (CK-2) C-Reactive Protein NT-Pro-B Natriuret Pep Total Protein Albumin Arterial Blood Glucose Urine WBC (Auto) 12/12/19 12/12/19 12/12/19 09:38 12:18 17:44 WBC RBC Hgb Hct MCHC RDW MCV MCH Lymph % (Auto) [place] % (Auto) [place] # Eos # Lymph # (Auto) [place] # (Auto) Eos # (Auto) Seg Neutrophils % Seg Neuts % (Manual) Baso # (Auto) Lymphocytes % (Manual) Monocytes % (Manual) Eosinophils % (Manual) Basophils % (Manual) Seg Neutrophils # Seg Neutrophils # Man Lymphocytes # (Manual) Monocytes # (Manual) Eosinophils # (Manual) Nucleated RBC % Basophils # (Manual) APTT Heparin Anti-Xa Level ABG pH POC ABG pO2 ABG pO2 ABG HCO3 ABG O2 Saturation ABG Base Excess POC ABG pCO2 ABG Hemoglobin ABG Oxyhemoglobin ABG Glucose Oxyhemoglobin Sodium Potassium Chloride Carbon Dioxide BUN Creatinine Glucose POC Glucose 115 H 146 H 146 H Lactic Acid Calcium Phosphorus Magnesium AST ALT Lactate Dehydrogenase CK-MB (CK-2) C-Reactive Protein NT-Pro-B Natriuret Pep Total Protein Albumin Arterial Blood Glucose Urine WBC (Auto) 12/12/19 12/13/19 12/13/19 23:33 05:32 05:32 WBC 13.1 H RBC 3.27 L Hgb 9.5 L Hct 29.3 L MCHC RDW 15.6 H MCV MCH Lymph % (Auto) [place] % (Auto) [place] # Eos # Lymph # (Auto) [place] # (Auto) Eos # (Auto) Seg Neutrophils % Seg Neuts % (Manual) 74.0 H Baso # (Auto) Lymphocytes % (Manual) 8.0 L Monocytes % (Manual) 9.0 H Eosinophils % (Manual) 5.0 H Basophils % (Manual) Seg Neutrophils # Seg Neutrophils # Man 9.7 H Lymphocytes # (Manual) 1.0 L Monocytes # (Manual) 1.2 H Eosinophils # (Manual) 0.7 H Nucleated RBC % Basophils # (Manual) APTT Heparin Anti-Xa Level 0.20 L ABG pH POC ABG pO2 ABG pO2 ABG HCO3 ABG O2 Saturation ABG Base Excess POC ABG pCO2 ABG Hemoglobin ABG Oxyhemoglobin ABG Glucose Oxyhemoglobin Sodium Potassium Chloride Carbon Dioxide BUN Creatinine Glucose POC Glucose 126 H Lactic Acid Calcium Phosphorus Magnesium AST ALT Lactate Dehydrogenase CK-MB (CK-2) C-Reactive Protein NT-Pro-B Natriuret Pep Total Protein Albumin Arterial Blood Glucose Urine WBC (Auto) 12/13/19 12/13/19 12/13/19 05:32 05:46 11:57 WBC RBC Hgb Hct MCHC RDW MCV MCH Lymph % (Auto) [place] % (Auto) [place] # Eos # Lymph # (Auto) [place] # (Auto) Eos # (Auto) Seg Neutrophils % Seg Neuts % (Manual) Baso # (Auto) Lymphocytes % (Manual) Monocytes % (Manual) Eosinophils % (Manual) Basophils % (Manual) Seg Neutrophils # Seg Neutrophils # Man Lymphocytes # (Manual) Monocytes # (Manual) Eosinophils # (Manual) Nucleated RBC % Basophils # (Manual) APTT Heparin Anti-Xa Level ABG pH POC ABG pO2 ABG pO2 ABG HCO3 ABG O2 Saturation ABG Base Excess POC ABG pCO2 ABG Hemoglobin ABG Oxyhemoglobin ABG Glucose Oxyhemoglobin Sodium Potassium Chloride Carbon Dioxide 31 H BUN Creatinine 0.6 L Glucose 114 H POC Glucose 118 H 133 H Lactic Acid Calcium Phosphorus Magnesium AST ALT Lactate Dehydrogenase CK-MB (CK-2) C-Reactive Protein NT-Pro-B Natriuret Pep Total Protein Albumin Arterial Blood Glucose Urine WBC (Auto) 12/13/19 12/13/19 12/14/19 17:44 23:46 05:32 WBC RBC Hgb Hct MCHC RDW MCV MCH Lymph % (Auto) [place] % (Auto) [place] # Eos # Lymph # (Auto) [place] # (Auto) Eos # (Auto) Seg Neutrophils % Seg Neuts % (Manual) Baso # (Auto) Lymphocytes % (Manual) Monocytes % (Manual) Eosinophils % (Manual) Basophils % (Manual) Seg Neutrophils # Seg Neutrophils # Man Lymphocytes # (Manual) Monocytes # (Manual) Eosinophils # (Manual) Nucleated RBC % Basophils # (Manual) APTT Heparin Anti-Xa Level ABG pH POC ABG pO2 ABG pO2 ABG HCO3 ABG O2 Saturation ABG Base Excess POC ABG pCO2 ABG Hemoglobin ABG Oxyhemoglobin ABG Glucose Oxyhemoglobin Sodium Potassium Chloride Carbon Dioxide BUN Creatinine Glucose POC Glucose 161 H 126 H 139 H Lactic Acid Calcium Phosphorus Magnesium AST ALT Lactate Dehydrogenase CK-MB (CK-2) C-Reactive Protein NT-Pro-B Natriuret Pep Total Protein Albumin Arterial Blood Glucose Urine WBC (Auto) 12/14/19 12/14/19 12/14/19 06:03 06:03 09:37 WBC RBC Hgb 9.6 L Hct 30.4 L MCHC RDW MCV MCH Lymph % (Auto) [place] % (Auto) [place] # Eos # Lymph # (Auto) [place] # (Auto) Eos # (Auto) Seg Neutrophils % Seg Neuts % (Manual) Baso # (Auto) Lymphocytes % (Manual) Monocytes % (Manual) Eosinophils % (Manual) Basophils % (Manual) Seg Neutrophils # Seg Neutrophils # Man Lymphocytes # (Manual) Monocytes # (Manual) Eosinophils # (Manual) Nucleated RBC % Basophils # (Manual) APTT Heparin Anti-Xa Level 0.24 L ABG pH POC ABG pO2 ABG pO2 ABG HCO3 ABG O2 Saturation ABG Base Excess POC ABG pCO2 ABG Hemoglobin ABG Oxyhemoglobin ABG Glucose Oxyhemoglobin Sodium Potassium Chloride Carbon Dioxide BUN Creatinine 0.6 L Glucose 162 H POC Glucose Lactic Acid Calcium Phosphorus Magnesium AST 71 H ALT 118 H Lactate Dehydrogenase CK-MB (CK-2) C-Reactive Protein NT-Pro-B Natriuret Pep Total Protein 6.2 L Albumin 2.3 L Arterial Blood Glucose Urine WBC (Auto) 12/14/19 12/14/19 12/15/19 12:06 18:18 00:19 WBC RBC Hgb Hct MCHC RDW MCV MCH Lymph % (Auto) [place] % (Auto) [place] # Eos # Lymph # (Auto) [place] # (Auto) Eos # (Auto) Seg Neutrophils % Seg Neuts % (Manual) Baso # (Auto) Lymphocytes % (Manual) Monocytes % (Manual) Eosinophils % (Manual) Basophils % (Manual) Seg Neutrophils # Seg Neutrophils # Man Lymphocytes # (Manual) Monocytes # (Manual) Eosinophils # (Manual) Nucleated RBC % Basophils # (Manual) APTT Heparin Anti-Xa Level ABG pH POC ABG pO2 ABG pO2 ABG HCO3 ABG O2 Saturation ABG Base Excess POC ABG pCO2 ABG Hemoglobin ABG Oxyhemoglobin ABG Glucose Oxyhemoglobin Sodium Potassium Chloride Carbon Dioxide BUN Creatinine Glucose POC Glucose 147 H 166 H 123 H Lactic Acid Calcium Phosphorus Magnesium AST ALT Lactate Dehydrogenase CK-MB (CK-2) C-Reactive Protein NT-Pro-B Natriuret Pep Total Protein Albumin Arterial Blood Glucose Urine WBC (Auto) 12/15/19 12/15/19 12/15/19 05:28 05:29 05:29 WBC 14.9 H RBC 3.19 L Hgb 9.1 L Hct 28.7 L MCHC RDW 16.0 H MCV MCH Lymph % (Auto) [place] % (Auto) [place] # Eos # Lymph # (Auto) [place] # (Auto) Eos # (Auto) Seg Neutrophils % Seg Neuts % (Manual) Baso # (Auto) Lymphocytes % (Manual) Monocytes % (Manual) Eosinophils % (Manual) Basophils % (Manual) Seg Neutrophils # Seg Neutrophils # Man Lymphocytes # (Manual) Monocytes # (Manual) Eosinophils # (Manual) Nucleated RBC % Basophils # (Manual) APTT Heparin Anti-Xa Level 0.19 L ABG pH POC ABG pO2 ABG pO2 ABG HCO3 ABG O2 Saturation ABG Base Excess POC ABG pCO2 ABG Hemoglobin ABG Oxyhemoglobin ABG Glucose Oxyhemoglobin Sodium Potassium Chloride Carbon Dioxide BUN Creatinine 0.6 L Glucose 110 H POC Glucose Lactic Acid Calcium Phosphorus Magnesium AST ALT Lactate Dehydrogenase CK-MB (CK-2) C-Reactive Protein NT-Pro-B Natriuret Pep Total Protein Albumin Arterial Blood Glucose Urine WBC (Auto) 12/15/19 12/15/19 12/15/19 05:53 11:50 17:26 WBC RBC Hgb Hct MCHC RDW MCV MCH Lymph % (Auto) [place] % (Auto) [place] # Eos # Lymph # (Auto) [place] # (Auto) Eos # (Auto) Seg Neutrophils % Seg Neuts % (Manual) Baso # (Auto) Lymphocytes % (Manual) Monocytes % (Manual) Eosinophils % (Manual) Basophils % (Manual) Seg Neutrophils # Seg Neutrophils # Man Lymphocytes # (Manual) Monocytes # (Manual) Eosinophils # (Manual) Nucleated RBC % Basophils # (Manual) APTT Heparin Anti-Xa Level ABG pH POC ABG pO2 ABG pO2 ABG HCO3 ABG O2 Saturation ABG Base Excess POC ABG pCO2 ABG Hemoglobin ABG Oxyhemoglobin ABG Glucose Oxyhemoglobin Sodium Potassium Chloride Carbon Dioxide BUN Creatinine Glucose POC Glucose 119 H 132 H 128 H Lactic Acid Calcium Phosphorus Magnesium AST ALT Lactate Dehydrogenase CK-MB (CK-2) C-Reactive Protein NT-Pro-B Natriuret Pep Total Protein Albumin Arterial Blood Glucose Urine WBC (Auto) 12/15/19 12/16/19 12/16/19 23:11 05:30 05:46 WBC RBC Hgb 8.8 L Hct 27.9 L MCHC RDW MCV MCH Lymph % (Auto) [place] % (Auto) [place] # Eos # Lymph # (Auto) [place] # (Auto) Eos # (Auto) Seg Neutrophils % Seg Neuts % (Manual) Baso # (Auto) Lymphocytes % (Manual) Monocytes % (Manual) Eosinophils % (Manual) Basophils % (Manual) Seg Neutrophils # Seg Neutrophils # Man Lymphocytes # (Manual) Monocytes # (Manual) Eosinophils # (Manual) Nucleated RBC % Basophils # (Manual) APTT Heparin Anti-Xa Level ABG pH POC ABG pO2 ABG pO2 ABG HCO3 ABG O2 Saturation ABG Base Excess POC ABG pCO2 ABG Hemoglobin ABG Oxyhemoglobin ABG Glucose Oxyhemoglobin Sodium Potassium Chloride Carbon Dioxide BUN Creatinine Glucose POC Glucose 150 H 134 H Lactic Acid Calcium Phosphorus Magnesium AST ALT Lactate Dehydrogenase CK-MB (CK-2) C-Reactive Protein NT-Pro-B Natriuret Pep Total Protein Albumin Arterial Blood Glucose Urine WBC (Auto) 12/16/19 12/16/19 12/16/19 05:46 05:46 11:44 WBC RBC Hgb Hct MCHC RDW MCV MCH Lymph % (Auto) [place] % (Auto) [place] # Eos # Lymph # (Auto) [place] # (Auto) Eos # (Auto) Seg Neutrophils % Seg Neuts % (Manual) Baso # (Auto) Lymphocytes % (Manual) Monocytes % (Manual) Eosinophils % (Manual) Basophils % (Manual) Seg Neutrophils # Seg Neutrophils # Man Lymphocytes # (Manual) Monocytes # (Manual) Eosinophils # (Manual) Nucleated RBC % Basophils # (Manual) APTT Heparin Anti-Xa Level 0.20 L ABG pH POC ABG pO2 ABG pO2 ABG HCO3 ABG O2 Saturation ABG Base Excess POC ABG pCO2 ABG Hemoglobin ABG Oxyhemoglobin ABG Glucose Oxyhemoglobin Sodium Potassium Chloride Carbon Dioxide 31 H BUN Creatinine 0.5 L Glucose 147 H POC Glucose 164 H Lactic Acid Calcium Phosphorus Magnesium AST ALT Lactate Dehydrogenase CK-MB (CK-2) C-Reactive Protein NT-Pro-B Natriuret Pep Total Protein Albumin Arterial Blood Glucose Urine WBC (Auto) 12/16/19 12/16/19 12/17/19 17:17 23:49 05:30 WBC 13.9 H RBC 3.27 L Hgb 9.4 L Hct 29.2 L MCHC RDW 16.0 H MCV MCH Lymph % (Auto) [place] % (Auto) 8.8 H [place] # Eos # Lymph # (Auto) [place] # (Auto) 1.2 H Eos # (Auto) 0.5 H Seg Neutrophils % 70.5 H Seg Neuts % (Manual) Baso # (Auto) 0.2 H Lymphocytes % (Manual) Monocytes % (Manual) Eosinophils % (Manual) Basophils % (Manual) Seg Neutrophils # 9.8 H Seg Neutrophils # Man Lymphocytes # (Manual) Monocytes # (Manual) Eosinophils # (Manual) Nucleated RBC % Basophils # (Manual) APTT Heparin Anti-Xa Level ABG pH POC ABG pO2 ABG pO2 ABG HCO3 ABG O2 Saturation ABG Base Excess POC ABG pCO2 ABG Hemoglobin ABG Oxyhemoglobin ABG Glucose Oxyhemoglobin Sodium Potassium Chloride Carbon Dioxide BUN Creatinine Glucose POC Glucose 162 H 144 H Lactic Acid Calcium Phosphorus Magnesium AST ALT Lactate Dehydrogenase CK-MB (CK-2) C-Reactive Protein NT-Pro-B Natriuret Pep Total Protein Albumin Arterial Blood Glucose Urine WBC (Auto) 12/17/19 12/17/19 12/17/19 05:30 06:06 11:50 WBC RBC Hgb Hct MCHC RDW MCV MCH Lymph % (Auto) [place] % (Auto) [place] # Eos # Lymph # (Auto) [place] # (Auto) Eos # (Auto) Seg Neutrophils % Seg Neuts % (Manual) Baso # (Auto) Lymphocytes % (Manual) Monocytes % (Manual) Eosinophils % (Manual) Basophils % (Manual) Seg Neutrophils # Seg Neutrophils # Man Lymphocytes # (Manual) Monocytes # (Manual) Eosinophils # (Manual) Nucleated RBC % Basophils # (Manual) APTT Heparin Anti-Xa Level ABG pH POC ABG pO2 ABG pO2 ABG HCO3 ABG O2 Saturation ABG Base Excess POC ABG pCO2 ABG Hemoglobin ABG Oxyhemoglobin ABG Glucose Oxyhemoglobin Sodium Potassium Chloride 97.4 L Carbon Dioxide 32 H BUN Creatinine 0.5 L Glucose 135 H POC Glucose 151 H 140 H Lactic Acid Calcium Phosphorus Magnesium AST ALT Lactate Dehydrogenase CK-MB (CK-2) C-Reactive Protein NT-Pro-B Natriuret Pep Total Protein Albumin Arterial Blood Glucose Urine WBC (Auto) 12/17/19 12/17/19 12/18/19 17:50 23:46 05:17 WBC RBC Hgb 8.8 L Hct 28.0 L MCHC RDW MCV MCH Lymph % (Auto) [place] % (Auto) [place] # Eos # Lymph # (Auto) [place] # (Auto) Eos # (Auto) Seg Neutrophils % Seg Neuts % (Manual) Baso # (Auto) Lymphocytes % (Manual) Monocytes % (Manual) Eosinophils % (Manual) Basophils % (Manual) Seg Neutrophils # Seg Neutrophils # Man Lymphocytes # (Manual) Monocytes # (Manual) Eosinophils # (Manual) Nucleated RBC % Basophils # (Manual) APTT Heparin Anti-Xa Level ABG pH POC ABG pO2 ABG pO2 ABG HCO3 ABG O2 Saturation ABG Base Excess POC ABG pCO2 ABG Hemoglobin ABG Oxyhemoglobin ABG Glucose Oxyhemoglobin Sodium Potassium Chloride Carbon Dioxide BUN Creatinine Glucose POC Glucose 158 H 150 H Lactic Acid Calcium Phosphorus Magnesium AST ALT Lactate Dehydrogenase CK-MB (CK-2) C-Reactive Protein NT-Pro-B Natriuret Pep Total Protein Albumin Arterial Blood Glucose Urine WBC (Auto) 12/18/19 12/18/19 12/18/19 05:17 05:49 11:12 WBC RBC Hgb Hct MCHC RDW MCV MCH Lymph % (Auto) [place] % (Auto) [place] # Eos # Lymph # (Auto) [place] # (Auto) Eos # (Auto) Seg Neutrophils % Seg Neuts % (Manual) Baso # (Auto) Lymphocytes % (Manual) Monocytes % (Manual) Eosinophils % (Manual) Basophils % (Manual) Seg Neutrophils # Seg Neutrophils # Man Lymphocytes # (Manual) Monocytes # (Manual) Eosinophils # (Manual) Nucleated RBC % Basophils # (Manual) APTT Heparin Anti-Xa Level 0.16 L ABG pH POC ABG pO2 ABG pO2 ABG HCO3 ABG O2 Saturation ABG Base Excess POC ABG pCO2 ABG Hemoglobin ABG Oxyhemoglobin ABG Glucose Oxyhemoglobin Sodium Potassium Chloride Carbon Dioxide BUN Creatinine Glucose POC Glucose 127 H 191 H Lactic Acid Calcium Phosphorus Magnesium AST ALT Lactate Dehydrogenase CK-MB (CK-2) C-Reactive Protein NT-Pro-B Natriuret Pep Total Protein Albumin Arterial Blood Glucose Urine WBC (Auto) 12/18/19 12/18/19 12/19/19 17:03 20:16 00:08 WBC RBC Hgb Hct MCHC RDW MCV MCH Lymph % (Auto) [place] % (Auto) [place] # Eos # Lymph # (Auto) [place] # (Auto) Eos # (Auto) Seg Neutrophils % Seg Neuts % (Manual) Baso # (Auto) Lymphocytes % (Manual) Monocytes % (Manual) Eosinophils % (Manual) Basophils % (Manual) Seg Neutrophils # Seg Neutrophils # Man Lymphocytes # (Manual) Monocytes # (Manual) Eosinophils # (Manual) Nucleated RBC % Basophils # (Manual) APTT Heparin Anti-Xa Level ABG pH POC ABG pO2 ABG pO2 ABG HCO3 ABG O2 Saturation ABG Base Excess POC ABG pCO2 ABG Hemoglobin ABG Oxyhemoglobin ABG Glucose Oxyhemoglobin Sodium Potassium Chloride Carbon Dioxide BUN Creatinine Glucose POC Glucose 133 H 128 H 129 H Lactic Acid Calcium Phosphorus Magnesium AST ALT Lactate Dehydrogenase CK-MB (CK-2) C-Reactive Protein NT-Pro-B Natriuret Pep Total Protein Albumin Arterial Blood Glucose Urine WBC (Auto) 12/19/19 12/19/19 12/19/19 04:45 04:45 05:35 WBC RBC Hgb Hct MCHC RDW MCV MCH Lymph % (Auto) [place] % (Auto) [place] # Eos # Lymph # (Auto) [place] # (Auto) Eos # (Auto) Seg Neutrophils % Seg Neuts % (Manual) Baso # (Auto) Lymphocytes % (Manual) Monocytes % (Manual) Eosinophils % (Manual) Basophils % (Manual) Seg Neutrophils # Seg Neutrophils # Man Lymphocytes # (Manual) Monocytes # (Manual) Eosinophils # (Manual) Nucleated RBC % Basophils # (Manual) APTT Heparin Anti-Xa Level 0.17 L ABG pH POC ABG pO2 ABG pO2 ABG HCO3 ABG O2 Saturation ABG Base Excess POC ABG pCO2 ABG Hemoglobin ABG Oxyhemoglobin ABG Glucose Oxyhemoglobin Sodium Potassium Chloride Carbon Dioxide BUN Creatinine Glucose POC Glucose 120 H Lactic Acid Calcium Phosphorus Magnesium AST ALT Lactate Dehydrogenase 228 H CK-MB (CK-2) C-Reactive Protein NT-Pro-B Natriuret Pep Total Protein Albumin Arterial Blood Glucose Urine WBC (Auto) 12/19/19 12/19/19 12/19/19 09:20 11:32 11:32 WBC 14.6 H RBC 3.08 L Hgb 9.0 L Hct 26.8 L MCHC RDW 15.9 H MCV MCH Lymph % (Auto) [place] % (Auto) [place] # Eos # Lymph # (Auto) [place] # (Auto) Eos # (Auto) Seg Neutrophils % Seg Neuts % (Manual) 82.0 H Baso # (Auto) Lymphocytes % (Manual) 10.0 L Monocytes % (Manual) Eosinophils % (Manual) Basophils % (Manual) Seg Neutrophils # Seg Neutrophils # Man 12.0 H Lymphocytes # (Manual) Monocytes # (Manual) 0.9 H Eosinophils # (Manual) Nucleated RBC % 1.0 H Basophils # (Manual) APTT Heparin Anti-Xa Level ABG pH 7.451 H POC ABG pO2 ABG pO2 62.6 L ABG HCO3 33.2 H ABG O2 Saturation 93.8 L ABG Base Excess 8.3 H POC ABG pCO2 ABG Hemoglobin 8.3 L ABG Oxyhemoglobin ABG Glucose Oxyhemoglobin 91.9 L Sodium Potassium Chloride 95.0 L Carbon Dioxide 33 H BUN 22 H Creatinine 0.6 L Glucose 150 H POC Glucose Lactic Acid Calcium Phosphorus Magnesium AST ALT Lactate Dehydrogenase CK-MB (CK-2) C-Reactive Protein NT-Pro-B Natriuret Pep Total Protein 6.2 L Albumin 2.4 L Arterial Blood Glucose Urine WBC (Auto) 12/19/19 12/19/19 12/20/19 11:56 18:17 00:09 WBC RBC Hgb Hct MCHC RDW MCV MCH Lymph % (Auto) [place] % (Auto) [place] # Eos # Lymph # (Auto) [place] # (Auto) Eos # (Auto) Seg Neutrophils % Seg Neuts % (Manual) Baso # (Auto) Lymphocytes % (Manual) Monocytes % (Manual) Eosinophils % (Manual) Basophils % (Manual) Seg Neutrophils # Seg Neutrophils # Man Lymphocytes # (Manual) Monocytes # (Manual) Eosinophils # (Manual) Nucleated RBC % Basophils # (Manual) APTT Heparin Anti-Xa Level ABG pH POC ABG pO2 ABG pO2 ABG HCO3 ABG O2 Saturation ABG Base Excess POC ABG pCO2 ABG Hemoglobin ABG Oxyhemoglobin ABG Glucose Oxyhemoglobin Sodium Potassium Chloride Carbon Dioxide BUN Creatinine Glucose POC Glucose 156 H 156 H 155 H Lactic Acid Calcium Phosphorus Magnesium AST ALT Lactate Dehydrogenase CK-MB (CK-2) C-Reactive Protein NT-Pro-B Natriuret Pep Total Protein Albumin Arterial Blood Glucose Urine WBC (Auto) 12/20/19 12/20/19 12/20/19 05:26 06:02 18:17 WBC RBC Hgb Hct MCHC RDW MCV MCH Lymph % (Auto) [place] % (Auto) [place] # Eos # Lymph # (Auto) [place] # (Auto) Eos # (Auto) Seg Neutrophils % Seg Neuts % (Manual) Baso # (Auto) Lymphocytes % (Manual) Monocytes % (Manual) Eosinophils % (Manual) Basophils % (Manual) Seg Neutrophils # Seg Neutrophils # Man Lymphocytes # (Manual) Monocytes # (Manual) Eosinophils # (Manual) Nucleated RBC % Basophils # (Manual) APTT Heparin Anti-Xa Level 0.19 L ABG pH POC ABG pO2 ABG pO2 ABG HCO3 ABG O2 Saturation ABG Base Excess POC ABG pCO2 ABG Hemoglobin ABG Oxyhemoglobin ABG Glucose Oxyhemoglobin Sodium Potassium Chloride Carbon Dioxide BUN Creatinine Glucose POC Glucose 137 H 128 H Lactic Acid Calcium Phosphorus Magnesium AST ALT Lactate Dehydrogenase CK-MB (CK-2) C-Reactive Protein NT-Pro-B Natriuret Pep Total Protein Albumin Arterial Blood Glucose Urine WBC (Auto) 12/20/19 12/21/19 12/21/19 23:34 05:31 05:31 WBC 12.7 H RBC 3.09 L Hgb 8.9 L Hct 27.4 L MCHC RDW 15.8 H MCV MCH Lymph % (Auto) 12.1 L [place] % (Auto) 7.8 H [place] # Eos # Lymph # (Auto) [place] # (Auto) 1.0 H Eos # (Auto) Seg Neutrophils % 77.1 H Seg Neuts % (Manual) Baso # (Auto) Lymphocytes % (Manual) Monocytes % (Manual) Eosinophils % (Manual) Basophils % (Manual) Seg Neutrophils # 9.8 H Seg Neutrophils # Man Lymphocytes # (Manual) Monocytes # (Manual) Eosinophils # (Manual) Nucleated RBC % Basophils # (Manual) APTT Heparin Anti-Xa Level ABG pH POC ABG pO2 ABG pO2 ABG HCO3 ABG O2 Saturation ABG Base Excess POC ABG pCO2 ABG Hemoglobin ABG Oxyhemoglobin ABG Glucose Oxyhemoglobin Sodium Potassium Chloride 96.9 L Carbon Dioxide 37 H BUN 27 H Creatinine 0.7 L Glucose 140 H POC Glucose 145 H Lactic Acid Calcium Phosphorus Magnesium AST ALT Lactate Dehydrogenase CK-MB (CK-2) C-Reactive Protein NT-Pro-B Natriuret Pep Total Protein Albumin Arterial Blood Glucose Urine WBC (Auto) 12/21/19 12/21/19 12/21/19 05:38 10:13 11:51 WBC RBC Hgb Hct MCHC RDW MCV MCH Lymph % (Auto) [place] % (Auto) [place] # Eos # Lymph # (Auto) [place] # (Auto) Eos # (Auto) Seg Neutrophils % Seg Neuts % (Manual) Baso # (Auto) Lymphocytes % (Manual) Monocytes % (Manual) Eosinophils % (Manual) Basophils % (Manual) Seg Neutrophils # Seg Neutrophils # Man Lymphocytes # (Manual) Monocytes # (Manual) Eosinophils # (Manual) Nucleated RBC % Basophils # (Manual) APTT 23.9 L Heparin Anti-Xa Level < 0.10 L ABG pH POC ABG pO2 ABG pO2 ABG HCO3 ABG O2 Saturation ABG Base Excess POC ABG pCO2 ABG Hemoglobin ABG Oxyhemoglobin ABG Glucose Oxyhemoglobin Sodium Potassium Chloride Carbon Dioxide BUN Creatinine Glucose POC Glucose 151 H 145 H Lactic Acid Calcium Phosphorus Magnesium AST ALT Lactate Dehydrogenase CK-MB (CK-2) C-Reactive Protein NT-Pro-B Natriuret Pep Total Protein Albumin Arterial Blood Glucose Urine WBC (Auto) 12/21/19 12/22/19 12/22/19 17:16 00:01 01:33 WBC RBC Hgb Hct MCHC RDW MCV MCH Lymph % (Auto) [place] % (Auto) [place] # Eos # Lymph # (Auto) [place] # (Auto) Eos # (Auto) Seg Neutrophils % Seg Neuts % (Manual) Baso # (Auto) Lymphocytes % (Manual) Monocytes % (Manual) Eosinophils % (Manual) Basophils % (Manual) Seg Neutrophils # Seg Neutrophils # Man Lymphocytes # (Manual) Monocytes # (Manual) Eosinophils # (Manual) Nucleated RBC % Basophils # (Manual) APTT Heparin Anti-Xa Level 0.10 L ABG pH POC ABG pO2 ABG pO2 ABG HCO3 ABG O2 Saturation ABG Base Excess POC ABG pCO2 ABG Hemoglobin ABG Oxyhemoglobin ABG Glucose Oxyhemoglobin Sodium Potassium Chloride Carbon Dioxide BUN Creatinine Glucose POC Glucose 167 H 179 H Lactic Acid Calcium Phosphorus Magnesium AST ALT Lactate Dehydrogenase CK-MB (CK-2) C-Reactive Protein NT-Pro-B Natriuret Pep Total Protein Albumin Arterial Blood Glucose Urine WBC (Auto) 12/22/19 12/22/19 12/22/19 03:22 05:10 05:10 WBC 13.8 H RBC 3.20 L Hgb 8.9 L Hct 28.1 L MCHC RDW 15.9 H MCV MCH Lymph % (Auto) [place] % (Auto) [place] # Eos # Lymph # (Auto) [place] # (Auto) Eos # (Auto) Seg Neutrophils % Seg Neuts % (Manual) Baso # (Auto) Lymphocytes % (Manual) Monocytes % (Manual) Eosinophils % (Manual) Basophils % (Manual) Seg Neutrophils # Seg Neutrophils # Man Lymphocytes # (Manual) Monocytes # (Manual) Eosinophils # (Manual) Nucleated RBC % Basophils # (Manual) APTT Heparin Anti-Xa Level ABG pH POC ABG pO2 52.3 L ABG pO2 ABG HCO3 ABG O2 Saturation ABG Base Excess POC ABG pCO2 52.9 H ABG Hemoglobin 10.7 L ABG Oxyhemoglobin 84 L ABG Glucose Oxyhemoglobin Sodium Potassium Chloride 96.6 L Carbon Dioxide BUN 25 H Creatinine 0.7 L Glucose 129 H POC Glucose Lactic Acid Calcium Phosphorus Magnesium AST ALT Lactate Dehydrogenase CK-MB (CK-2) C-Reactive Protein NT-Pro-B Natriuret Pep Total Protein Albumin Arterial Blood Glucose Urine WBC (Auto) 12/22/19 12/22/19 12/22/19 05:18 12:32 12:43 WBC RBC Hgb Hct MCHC RDW MCV MCH Lymph % (Auto) [place] % (Auto) [place] # Eos # Lymph # (Auto) [place] # (Auto) Eos # (Auto) Seg Neutrophils % Seg Neuts % (Manual) Baso # (Auto) Lymphocytes % (Manual) Monocytes % (Manual) Eosinophils % (Manual) Basophils % (Manual) Seg Neutrophils # Seg Neutrophils # Man Lymphocytes # (Manual) Monocytes # (Manual) Eosinophils # (Manual) Nucleated RBC % Basophils # (Manual) APTT Heparin Anti-Xa Level 0.18 L ABG pH POC ABG pO2 ABG pO2 ABG HCO3 ABG O2 Saturation ABG Base Excess POC ABG pCO2 ABG Hemoglobin ABG Oxyhemoglobin ABG Glucose Oxyhemoglobin Sodium Potassium Chloride Carbon Dioxide BUN Creatinine Glucose POC Glucose 131 H 208 H Lactic Acid Calcium Phosphorus Magnesium AST ALT Lactate Dehydrogenase CK-MB (CK-2) C-Reactive Protein NT-Pro-B Natriuret Pep Total Protein Albumin Arterial Blood Glucose Urine WBC (Auto) 12/22/19 12/22/19 12/23/19 17:44 23:20 03:51 WBC 15.2 H RBC 3.43 L Hgb 9.6 L Hct 30.3 L MCHC RDW 15.9 H MCV MCH Lymph % (Auto) [place] % (Auto) [place] # Eos # Lymph # (Auto) [place] # (Auto) Eos # (Auto) Seg Neutrophils % Seg Neuts % (Manual) Baso # (Auto) Lymphocytes % (Manual) Monocytes % (Manual) Eosinophils % (Manual) Basophils % (Manual) Seg Neutrophils # Seg Neutrophils # Man Lymphocytes # (Manual) Monocytes # (Manual) Eosinophils # (Manual) Nucleated RBC % Basophils # (Manual) APTT Heparin Anti-Xa Level ABG pH POC ABG pO2 ABG pO2 ABG HCO3 ABG O2 Saturation ABG Base Excess POC ABG pCO2 ABG Hemoglobin ABG Oxyhemoglobin ABG Glucose Oxyhemoglobin Sodium Potassium Chloride Carbon Dioxide BUN Creatinine Glucose POC Glucose 209 H 119 H Lactic Acid Calcium Phosphorus Magnesium AST ALT Lactate Dehydrogenase CK-MB (CK-2) C-Reactive Protein NT-Pro-B Natriuret Pep Total Protein Albumin Arterial Blood Glucose Urine WBC (Auto) 12/23/19 12/23/19 12/23/19 03:51 05:31 12:09 WBC RBC Hgb Hct MCHC RDW MCV MCH Lymph % (Auto) [place] % (Auto) [place] # Eos # Lymph # (Auto) [place] # (Auto) Eos # (Auto) Seg Neutrophils % Seg Neuts % (Manual) Baso # (Auto) Lymphocytes % (Manual) Monocytes % (Manual) Eosinophils % (Manual) Basophils % (Manual) Seg Neutrophils # Seg Neutrophils # Man Lymphocytes # (Manual) Monocytes # (Manual) Eosinophils # (Manual) Nucleated RBC % Basophils # (Manual) APTT Heparin Anti-Xa Level ABG pH POC ABG pO2 ABG pO2 ABG HCO3 ABG O2 Saturation ABG Base Excess POC ABG pCO2 ABG Hemoglobin ABG Oxyhemoglobin ABG Glucose Oxyhemoglobin Sodium Potassium Chloride 97.2 L Carbon Dioxide 31 H BUN 23 H Creatinine 0.6 L Glucose 153 H POC Glucose 149 H 144 H Lactic Acid Calcium Phosphorus Magnesium AST ALT Lactate Dehydrogenase CK-MB (CK-2) C-Reactive Protein NT-Pro-B Natriuret Pep Total Protein Albumin Arterial Blood Glucose Urine WBC (Auto) 12/23/19 12/23/19 12/23/19 15:30 17:49 23:31 WBC RBC Hgb Hct MCHC RDW MCV MCH Lymph % (Auto) [place] % (Auto) [place] # Eos # Lymph # (Auto) [place] # (Auto) Eos # (Auto) Seg Neutrophils % Seg Neuts % (Manual) Baso # (Auto) Lymphocytes % (Manual) Monocytes % (Manual) Eosinophils % (Manual) Basophils % (Manual) Seg Neutrophils # Seg Neutrophils # Man Lymphocytes # (Manual) Monocytes # (Manual) Eosinophils # (Manual) Nucleated RBC % Basophils # (Manual) APTT Heparin Anti-Xa Level 0.21 L ABG pH POC ABG pO2 ABG pO2 ABG HCO3 ABG O2 Saturation ABG Base Excess POC ABG pCO2 ABG Hemoglobin ABG Oxyhemoglobin ABG Glucose Oxyhemoglobin Sodium Potassium Chloride Carbon Dioxide BUN Creatinine Glucose POC Glucose 192 H 151 H Lactic Acid Calcium Phosphorus Magnesium AST ALT Lactate Dehydrogenase CK-MB (CK-2) C-Reactive Protein NT-Pro-B Natriuret Pep Total Protein Albumin Arterial Blood Glucose Urine WBC (Auto) 12/24/19 12/24/19 12/24/19 05:34 12:13 16:50 WBC RBC Hgb Hct MCHC RDW MCV MCH Lymph % (Auto) [place] % (Auto) [place] # Eos # Lymph # (Auto) [place] # (Auto) Eos # (Auto) Seg Neutrophils % Seg Neuts % (Manual) Baso # (Auto) Lymphocytes % (Manual) Monocytes % (Manual) Eosinophils % (Manual) Basophils % (Manual) Seg Neutrophils # Seg Neutrophils # Man Lymphocytes # (Manual) Monocytes # (Manual) Eosinophils # (Manual) Nucleated RBC % Basophils # (Manual) APTT Heparin Anti-Xa Level 0.16 L ABG pH POC ABG pO2 ABG pO2 ABG HCO3 ABG O2 Saturation ABG Base Excess POC ABG pCO2 ABG Hemoglobin ABG Oxyhemoglobin ABG Glucose Oxyhemoglobin Sodium Potassium Chloride Carbon Dioxide BUN Creatinine Glucose POC Glucose 145 H 124 H Lactic Acid Calcium Phosphorus Magnesium AST ALT Lactate Dehydrogenase CK-MB (CK-2) C-Reactive Protein NT-Pro-B Natriuret Pep Total Protein Albumin Arterial Blood Glucose Urine WBC (Auto) 12/24/19 12/25/19 12/25/19 17:53 00:14 04:18 WBC 12.9 H RBC 3.30 L Hgb 9.1 L Hct 28.8 L MCHC RDW 16.4 H MCV MCH Lymph % (Auto) [place] % (Auto) 7.8 H [place] # Eos # Lymph # (Auto) [place] # (Auto) 1.0 H Eos # (Auto) Seg Neutrophils % 75.5 H Seg Neuts % (Manual) Baso # (Auto) Lymphocytes % (Manual) Monocytes % (Manual) Eosinophils % (Manual) Basophils % (Manual) Seg Neutrophils # 9.7 H Seg Neutrophils # Man Lymphocytes # (Manual) Monocytes # (Manual) Eosinophils # (Manual) Nucleated RBC % Basophils # (Manual) APTT Heparin Anti-Xa Level ABG pH POC ABG pO2 ABG pO2 ABG HCO3 ABG O2 Saturation ABG Base Excess POC ABG pCO2 ABG Hemoglobin ABG Oxyhemoglobin ABG Glucose Oxyhemoglobin Sodium Potassium Chloride Carbon Dioxide BUN Creatinine Glucose POC Glucose 164 H 148 H Lactic Acid Calcium Phosphorus Magnesium AST ALT Lactate Dehydrogenase CK-MB (CK-2) C-Reactive Protein NT-Pro-B Natriuret Pep Total Protein Albumin Arterial Blood Glucose Urine WBC (Auto) 12/25/19 12/25/19 12/25/19 04:18 05:38 11:44 WBC RBC Hgb Hct MCHC RDW MCV MCH Lymph % (Auto) [place] % (Auto) [place] # Eos # Lymph # (Auto) [place] # (Auto) Eos # (Auto) Seg Neutrophils % Seg Neuts % (Manual) Baso # (Auto) Lymphocytes % (Manual) Monocytes % (Manual) Eosinophils % (Manual) Basophils % (Manual) Seg Neutrophils # Seg Neutrophils # Man Lymphocytes # (Manual) Monocytes # (Manual) Eosinophils # (Manual) Nucleated RBC % Basophils # (Manual) APTT Heparin Anti-Xa Level ABG pH POC ABG pO2 ABG pO2 ABG HCO3 ABG O2 Saturation ABG Base Excess POC ABG pCO2 ABG Hemoglobin ABG Oxyhemoglobin ABG Glucose Oxyhemoglobin Sodium Potassium Chloride Carbon Dioxide 33 H BUN 27 H Creatinine 0.6 L Glucose 132 H POC Glucose 152 H 166 H Lactic Acid Calcium Phosphorus Magnesium AST ALT Lactate Dehydrogenase CK-MB (CK-2) C-Reactive Protein NT-Pro-B Natriuret Pep Total Protein Albumin Arterial Blood Glucose Urine WBC (Auto) 12/25/19 12/26/19 12/26/19 18:29 00:17 00:18 WBC RBC Hgb Hct MCHC RDW MCV MCH Lymph % (Auto) [place] % (Auto) [place] # Eos # Lymph # (Auto) [place] # (Auto) Eos # (Auto) Seg Neutrophils % Seg Neuts % (Manual) Baso # (Auto) Lymphocytes % (Manual) Monocytes % (Manual) Eosinophils % (Manual) Basophils % (Manual) Seg Neutrophils # Seg Neutrophils # Man Lymphocytes # (Manual) Monocytes # (Manual) Eosinophils # (Manual) Nucleated RBC % Basophils # (Manual) APTT Heparin Anti-Xa Level ABG pH POC ABG pO2 ABG pO2 ABG HCO3 ABG O2 Saturation ABG Base Excess POC ABG pCO2 ABG Hemoglobin ABG Oxyhemoglobin ABG Glucose Oxyhemoglobin Sodium Potassium Chloride 97.8 L Carbon Dioxide BUN 25 H Creatinine 0.6 L Glucose 140 H POC Glucose 194 H 151 H Lactic Acid Calcium Phosphorus Magnesium AST ALT Lactate Dehydrogenase CK-MB (CK-2) C-Reactive Protein NT-Pro-B Natriuret Pep Total Protein Albumin Arterial Blood Glucose Urine WBC (Auto) 12/26/19 12/26/19 12/26/19 05:36 11:41 17:50 WBC RBC Hgb Hct MCHC RDW MCV MCH Lymph % (Auto) [place] % (Auto) [place] # Eos # Lymph # (Auto) [place] # (Auto) Eos # (Auto) Seg Neutrophils % Seg Neuts % (Manual) Baso # (Auto) Lymphocytes % (Manual) Monocytes % (Manual) Eosinophils % (Manual) Basophils % (Manual) Seg Neutrophils # Seg Neutrophils # Man Lymphocytes # (Manual) Monocytes # (Manual) Eosinophils # (Manual) Nucleated RBC % Basophils # (Manual) APTT Heparin Anti-Xa Level ABG pH POC ABG pO2 ABG pO2 ABG HCO3 ABG O2 Saturation ABG Base Excess POC ABG pCO2 ABG Hemoglobin ABG Oxyhemoglobin ABG Glucose Oxyhemoglobin Sodium Potassium Chloride Carbon Dioxide BUN Creatinine Glucose POC Glucose 156 H 148 H 139 H Lactic Acid Calcium Phosphorus Magnesium AST ALT Lactate Dehydrogenase CK-MB (CK-2) C-Reactive Protein NT-Pro-B Natriuret Pep Total Protein Albumin Arterial Blood Glucose Urine WBC (Auto) 12/26/19 12/27/19 12/27/19 23:19 05:34 12:02 WBC RBC Hgb Hct MCHC RDW MCV MCH Lymph % (Auto) [place] % (Auto) [place] # Eos # Lymph # (Auto) [place] # (Auto) Eos # (Auto) Seg Neutrophils % Seg Neuts % (Manual) Baso # (Auto) Lymphocytes % (Manual) Monocytes % (Manual) Eosinophils % (Manual) Basophils % (Manual) Seg Neutrophils # Seg Neutrophils # Man Lymphocytes # (Manual) Monocytes # (Manual) Eosinophils # (Manual) Nucleated RBC % Basophils # (Manual) APTT Heparin Anti-Xa Level ABG pH POC ABG pO2 ABG pO2 ABG HCO3 ABG O2 Saturation ABG Base Excess POC ABG pCO2 ABG Hemoglobin ABG Oxyhemoglobin ABG Glucose Oxyhemoglobin Sodium Potassium Chloride Carbon Dioxide BUN Creatinine Glucose POC Glucose 161 H 145 H 157 H Lactic Acid Calcium Phosphorus Magnesium AST ALT Lactate Dehydrogenase CK-MB (CK-2) C-Reactive Protein NT-Pro-B Natriuret Pep Total Protein Albumin Arterial Blood Glucose Urine WBC (Auto) 12/27/19 12/27/19 12/27/19 17:35 20:11 23:00 WBC RBC Hgb Hct MCHC RDW MCV MCH Lymph % (Auto) [place] % (Auto) [place] # Eos # Lymph # (Auto) [place] # (Auto) Eos # (Auto) Seg Neutrophils % Seg Neuts % (Manual) Baso # (Auto) Lymphocytes % (Manual) Monocytes % (Manual) Eosinophils % (Manual) Basophils % (Manual) Seg Neutrophils # Seg Neutrophils # Man Lymphocytes # (Manual) Monocytes # (Manual) Eosinophils # (Manual) Nucleated RBC % Basophils # (Manual) APTT Heparin Anti-Xa Level 0.19 L ABG pH POC ABG pO2 ABG pO2 ABG HCO3 ABG O2 Saturation ABG Base Excess POC ABG pCO2 ABG Hemoglobin ABG Oxyhemoglobin ABG Glucose Oxyhemoglobin Sodium Potassium Chloride Carbon Dioxide BUN Creatinine Glucose POC Glucose 158 H 155 H Lactic Acid Calcium Phosphorus Magnesium AST ALT Lactate Dehydrogenase CK-MB (CK-2) C-Reactive Protein NT-Pro-B Natriuret Pep Total Protein Albumin Arterial Blood Glucose Urine WBC (Auto) 12/27/19 12/28/19 12/28/19 23:45 02:41 02:41 WBC 13.0 H RBC 3.48 L Hgb 9.5 L Hct 30.6 L MCHC 31 L RDW 16.6 H MCV MCH 27 L Lymph % (Auto) 13.0 L [place] % (Auto) 8.0 H [place] # Eos # Lymph # (Auto) [place] # (Auto) 1.0 H Eos # (Auto) Seg Neutrophils % 76.3 H Seg Neuts % (Manual) Baso # (Auto) Lymphocytes % (Manual) Monocytes % (Manual) Eosinophils % (Manual) Basophils % (Manual) Seg Neutrophils # 9.9 H Seg Neutrophils # Man Lymphocytes # (Manual) Monocytes # (Manual) Eosinophils # (Manual) Nucleated RBC % Basophils # (Manual) APTT Heparin Anti-Xa Level ABG pH POC ABG pO2 ABG pO2 ABG HCO3 ABG O2 Saturation ABG Base Excess POC ABG pCO2 ABG Hemoglobin ABG Oxyhemoglobin ABG Glucose Oxyhemoglobin Sodium Potassium Chloride Carbon Dioxide BUN 22 H Creatinine 0.6 L Glucose 101 H POC Glucose 130 H Lactic Acid Calcium Phosphorus Magnesium AST ALT Lactate Dehydrogenase CK-MB (CK-2) C-Reactive Protein NT-Pro-B Natriuret Pep Total Protein Albumin Arterial Blood Glucose Urine WBC (Auto) 12/28/19 12/28/19 12/28/19 06:00 12:34 18:13 WBC RBC Hgb Hct MCHC RDW MCV MCH Lymph % (Auto) [place] % (Auto) [place] # Eos # Lymph # (Auto) [place] # (Auto) Eos # (Auto) Seg Neutrophils % Seg Neuts % (Manual) Baso # (Auto) Lymphocytes % (Manual) Monocytes % (Manual) Eosinophils % (Manual) Basophils % (Manual) Seg Neutrophils # Seg Neutrophils # Man Lymphocytes # (Manual) Monocytes # (Manual) Eosinophils # (Manual) Nucleated RBC % Basophils # (Manual) APTT Heparin Anti-Xa Level ABG pH POC ABG pO2 ABG pO2 ABG HCO3 ABG O2 Saturation ABG Base Excess POC ABG pCO2 ABG Hemoglobin ABG Oxyhemoglobin ABG Glucose Oxyhemoglobin Sodium Potassium Chloride Carbon Dioxide BUN Creatinine Glucose POC Glucose 150 H 161 H 128 H Lactic Acid Calcium Phosphorus Magnesium AST ALT Lactate Dehydrogenase CK-MB (CK-2) C-Reactive Protein NT-Pro-B Natriuret Pep Total Protein Albumin Arterial Blood Glucose Urine WBC (Auto) 12/28/19 12/29/19 12/29/19 23:36 05:21 11:40 WBC RBC Hgb Hct MCHC RDW MCV MCH Lymph % (Auto) [place] % (Auto) [place] # Eos # Lymph # (Auto) [place] # (Auto) Eos # (Auto) Seg Neutrophils % Seg Neuts % (Manual) Baso # (Auto) Lymphocytes % (Manual) Monocytes % (Manual) Eosinophils % (Manual) Basophils % (Manual) Seg Neutrophils # Seg Neutrophils # Man Lymphocytes # (Manual) Monocytes # (Manual) Eosinophils # (Manual) Nucleated RBC % Basophils # (Manual) APTT Heparin Anti-Xa Level ABG pH POC ABG pO2 ABG pO2 ABG HCO3 ABG O2 Saturation ABG Base Excess POC ABG pCO2 ABG Hemoglobin ABG Oxyhemoglobin ABG Glucose Oxyhemoglobin Sodium Potassium Chloride Carbon Dioxide BUN Creatinine Glucose POC Glucose 137 H 136 H 166 H Lactic Acid Calcium Phosphorus Magnesium AST ALT Lactate Dehydrogenase CK-MB (CK-2) C-Reactive Protein NT-Pro-B Natriuret Pep Total Protein Albumin Arterial Blood Glucose Urine WBC (Auto) 12/29/19 12/29/19 12/29/19 17:23 19:21 23:38 WBC RBC Hgb Hct MCHC RDW MCV MCH Lymph % (Auto) [place] % (Auto) [place] # Eos # Lymph # (Auto) [place] # (Auto) Eos # (Auto) Seg Neutrophils % Seg Neuts % (Manual) Baso # (Auto) Lymphocytes % (Manual) Monocytes % (Manual) Eosinophils % (Manual) Basophils % (Manual) Seg Neutrophils # Seg Neutrophils # Man Lymphocytes # (Manual) Monocytes # (Manual) Eosinophils # (Manual) Nucleated RBC % Basophils # (Manual) APTT Heparin Anti-Xa Level 0.20 L ABG pH POC ABG pO2 ABG pO2 ABG HCO3 ABG O2 Saturation ABG Base Excess POC ABG pCO2 ABG Hemoglobin ABG Oxyhemoglobin ABG Glucose Oxyhemoglobin Sodium Potassium Chloride Carbon Dioxide BUN Creatinine Glucose POC Glucose 144 H 141 H Lactic Acid Calcium Phosphorus Magnesium AST ALT Lactate Dehydrogenase CK-MB (CK-2) C-Reactive Protein NT-Pro-B Natriuret Pep Total Protein Albumin Arterial Blood Glucose Urine WBC (Auto) 12/30/19 12/30/19 12/30/19 03:58 03:58 04:59 WBC RBC 3.54 L Hgb 9.8 L Hct 30.7 L MCHC RDW 16.8 H MCV MCH Lymph % (Auto) [place] % (Auto) [place] # Eos # Lymph # (Auto) [place] # (Auto) Eos # (Auto) Seg Neutrophils % Seg Neuts % (Manual) Baso # (Auto) Lymphocytes % (Manual) Monocytes % (Manual) Eosinophils % (Manual) Basophils % (Manual) Seg Neutrophils # Seg Neutrophils # Man Lymphocytes # (Manual) Monocytes # (Manual) Eosinophils # (Manual) Nucleated RBC % Basophils # (Manual) APTT Heparin Anti-Xa Level ABG pH POC ABG pO2 ABG pO2 ABG HCO3 29.8 H ABG O2 Saturation ABG Base Excess 4.8 H POC ABG pCO2 ABG Hemoglobin 11.2 L ABG Oxyhemoglobin ABG Glucose Oxyhemoglobin 93.8 L Sodium Potassium Chloride 97.8 L Carbon Dioxide BUN 26 H Creatinine Glucose 168 H POC Glucose Lactic Acid Calcium Phosphorus Magnesium AST ALT Lactate Dehydrogenase CK-MB (CK-2) C-Reactive Protein NT-Pro-B Natriuret Pep Total Protein Albumin Arterial Blood Glucose Urine WBC (Auto) 12/30/19 12/30/19 12/30/19 05:45 11:34 17:28 WBC RBC Hgb Hct MCHC RDW MCV MCH Lymph % (Auto) [place] % (Auto) [place] # Eos # Lymph # (Auto) [place] # (Auto) Eos # (Auto) Seg Neutrophils % Seg Neuts % (Manual) Baso # (Auto) Lymphocytes % (Manual) Monocytes % (Manual) Eosinophils % (Manual) Basophils % (Manual) Seg Neutrophils # Seg Neutrophils # Man Lymphocytes # (Manual) Monocytes # (Manual) Eosinophils # (Manual) Nucleated RBC % Basophils # (Manual) APTT Heparin Anti-Xa Level ABG pH POC ABG pO2 ABG pO2 ABG HCO3 ABG O2 Saturation ABG Base Excess POC ABG pCO2 ABG Hemoglobin ABG Oxyhemoglobin ABG Glucose Oxyhemoglobin Sodium Potassium Chloride Carbon Dioxide BUN Creatinine Glucose POC Glucose 163 H 180 H 150 H Lactic Acid Calcium Phosphorus Magnesium AST ALT Lactate Dehydrogenase CK-MB (CK-2) C-Reactive Protein NT-Pro-B Natriuret Pep Total Protein Albumin Arterial Blood Glucose Urine WBC (Auto) 12/30/19 12/31/19 12/31/19 23:43 04:55 05:07 WBC RBC Hgb Hct MCHC RDW MCV MCH Lymph % (Auto) [place] % (Auto) [place] # Eos # Lymph # (Auto) [place] # (Auto) Eos # (Auto) Seg Neutrophils % Seg Neuts % (Manual) Baso # (Auto) Lymphocytes % (Manual) Monocytes % (Manual) Eosinophils % (Manual) Basophils % (Manual) Seg Neutrophils # Seg Neutrophils # Man Lymphocytes # (Manual) Monocytes # (Manual) Eosinophils # (Manual) Nucleated RBC % Basophils # (Manual) APTT Heparin Anti-Xa Level ABG pH POC ABG pO2 ABG pO2 ABG HCO3 ABG O2 Saturation ABG Base Excess POC ABG pCO2 ABG Hemoglobin ABG Oxyhemoglobin ABG Glucose Oxyhemoglobin Sodium Potassium 5.6 H D Chloride Carbon Dioxide BUN 33 H Creatinine Glucose 131 H POC Glucose 142 H 134 H Lactic Acid Calcium Phosphorus Magnesium AST ALT Lactate Dehydrogenase CK-MB (CK-2) C-Reactive Protein NT-Pro-B Natriuret Pep Total Protein Albumin Arterial Blood Glucose Urine WBC (Auto) 12/31/19 12/31/19 12/31/19 11:30 17:19 17:36 WBC RBC Hgb Hct MCHC RDW MCV MCH Lymph % (Auto) [place] % (Auto) [place] # Eos # Lymph # (Auto) [place] # (Auto) Eos # (Auto) Seg Neutrophils % Seg Neuts % (Manual) Baso # (Auto) Lymphocytes % (Manual) Monocytes % (Manual) Eosinophils % (Manual) Basophils % (Manual) Seg Neutrophils # Seg Neutrophils # Man Lymphocytes # (Manual) Monocytes # (Manual) Eosinophils # (Manual) Nucleated RBC % Basophils # (Manual) APTT Heparin Anti-Xa Level ABG pH POC ABG pO2 ABG pO2 ABG HCO3 ABG O2 Saturation ABG Base Excess POC ABG pCO2 ABG Hemoglobin ABG Oxyhemoglobin ABG Glucose Oxyhemoglobin Sodium Potassium Chloride Carbon Dioxide BUN 35 H Creatinine Glucose 156 H POC Glucose 158 H 181 H Lactic Acid Calcium Phosphorus Magnesium AST ALT Lactate Dehydrogenase CK-MB (CK-2) C-Reactive Protein NT-Pro-B Natriuret Pep Total Protein Albumin Arterial Blood Glucose Urine WBC (Auto) 12/31/19 12/31/19 12/31/19 18:16 19:41 21:53 WBC RBC Hgb Hct MCHC RDW MCV MCH Lymph % (Auto) [place] % (Auto) [place] # Eos # Lymph # (Auto) [place] # (Auto) Eos # (Auto) Seg Neutrophils % Seg Neuts % (Manual) Baso # (Auto) Lymphocytes % (Manual) Monocytes % (Manual) Eosinophils % (Manual) Basophils % (Manual) Seg Neutrophils # Seg Neutrophils # Man Lymphocytes # (Manual) Monocytes # (Manual) Eosinophils # (Manual) Nucleated RBC % Basophils # (Manual) APTT Heparin Anti-Xa Level 0.20 L ABG pH POC ABG pO2 ABG pO2 ABG HCO3 ABG O2 Saturation ABG Base Excess POC ABG pCO2 ABG Hemoglobin ABG Oxyhemoglobin ABG Glucose Oxyhemoglobin Sodium Potassium Chloride Carbon Dioxide BUN 34 H Creatinine Glucose 169 H POC Glucose 141 H Lactic Acid Calcium Phosphorus Magnesium AST ALT Lactate Dehydrogenase CK-MB (CK-2) C-Reactive Protein NT-Pro-B Natriuret Pep Total Protein Albumin Arterial Blood Glucose Urine WBC (Auto) 12/31/19 01/01/20 01/01/20 23:51 05:17 10:40 WBC RBC Hgb Hct MCHC RDW MCV MCH Lymph % (Auto) [place] % (Auto) [place] # Eos # Lymph # (Auto) [place] # (Auto) Eos # (Auto) Seg Neutrophils % Seg Neuts % (Manual) Baso # (Auto) Lymphocytes % (Manual) Monocytes % (Manual) Eosinophils % (Manual) Basophils % (Manual) Seg Neutrophils # Seg Neutrophils # Man Lymphocytes # (Manual) Monocytes # (Manual) Eosinophils # (Manual) Nucleated RBC % Basophils # (Manual) APTT Heparin Anti-Xa Level ABG pH POC ABG pO2 ABG pO2 ABG HCO3 ABG O2 Saturation ABG Base Excess POC ABG pCO2 ABG Hemoglobin ABG Oxyhemoglobin ABG Glucose Oxyhemoglobin Sodium Potassium Chloride Carbon Dioxide BUN 31 H Creatinine 0.7 L Glucose 137 H POC Glucose 131 H 155 H Lactic Acid Calcium Phosphorus Magnesium AST 73 H ALT 97 H Lactate Dehydrogenase CK-MB (CK-2) C-Reactive Protein NT-Pro-B Natriuret Pep 3866 H Total Protein Albumin 2.8 L Arterial Blood Glucose Urine WBC (Auto) 01/01/20 01/01/20 01/01/20 12:26 15:33 17:53 WBC 14.3 H RBC 3.35 L Hgb 9.1 L Hct 28.8 L MCHC RDW 17.0 H MCV MCH 27 L Lymph % (Auto) 7.0 L [place] % (Auto) 7.6 H [place] # Eos # Lymph # (Auto) 1.0 L [place] # (Auto) 1.1 H Eos # (Auto) Seg Neutrophils % 83.3 H Seg Neuts % (Manual) Baso # (Auto) Lymphocytes % (Manual) Monocytes % (Manual) Eosinophils % (Manual) Basophils % (Manual) Seg Neutrophils # 12.0 H Seg Neutrophils # Man Lymphocytes # (Manual) Monocytes # (Manual) Eosinophils # (Manual) Nucleated RBC % Basophils # (Manual) APTT Heparin Anti-Xa Level ABG pH POC ABG pO2 ABG pO2 ABG HCO3 ABG O2 Saturation ABG Base Excess POC ABG pCO2 ABG Hemoglobin ABG Oxyhemoglobin ABG Glucose Oxyhemoglobin Sodium Potassium Chloride Carbon Dioxide BUN Creatinine Glucose POC Glucose 128 H 128 H Lactic Acid Calcium Phosphorus Magnesium AST ALT Lactate Dehydrogenase CK-MB (CK-2) C-Reactive Protein NT-Pro-B Natriuret Pep Total Protein Albumin Arterial Blood Glucose Urine WBC (Auto) 01/01/20 01/02/20 01/02/20 23:04 05:39 07:00 WBC RBC Hgb Hct MCHC RDW MCV MCH Lymph % (Auto) [place] % (Auto) [place] # Eos # Lymph # (Auto) [place] # (Auto) Eos # (Auto) Seg Neutrophils % Seg Neuts % (Manual) Baso # (Auto) Lymphocytes % (Manual) Monocytes % (Manual) Eosinophils % (Manual) Basophils % (Manual) Seg Neutrophils # Seg Neutrophils # Man Lymphocytes # (Manual) Monocytes # (Manual) Eosinophils # (Manual) Nucleated RBC % Basophils # (Manual) APTT Heparin Anti-Xa Level 0.13 L ABG pH POC ABG pO2 ABG pO2 ABG HCO3 ABG O2 Saturation ABG Base Excess POC ABG pCO2 ABG Hemoglobin ABG Oxyhemoglobin ABG Glucose Oxyhemoglobin Sodium Potassium Chloride Carbon Dioxide BUN Creatinine Glucose POC Glucose 120 H 169 H Lactic Acid Calcium Phosphorus Magnesium AST ALT Lactate Dehydrogenase CK-MB (CK-2) C-Reactive Protein NT-Pro-B Natriuret Pep Total Protein Albumin Arterial Blood Glucose Urine WBC (Auto) 01/02/20 01/02/20 01/02/20 12:15 14:06 17:58 WBC RBC Hgb Hct MCHC RDW MCV MCH Lymph % (Auto) [place] % (Auto) [place] # Eos # Lymph # (Auto) [place] # (Auto) Eos # (Auto) Seg Neutrophils % Seg Neuts % (Manual) Baso # (Auto) Lymphocytes % (Manual) Monocytes % (Manual) Eosinophils % (Manual) Basophils % (Manual) Seg Neutrophils # Seg Neutrophils # Man Lymphocytes # (Manual) Monocytes # (Manual) Eosinophils # (Manual) Nucleated RBC % Basophils # (Manual) APTT Heparin Anti-Xa Level < 0.10 L ABG pH POC ABG pO2 ABG pO2 ABG HCO3 ABG O2 Saturation ABG Base Excess POC ABG pCO2 ABG Hemoglobin ABG Oxyhemoglobin ABG Glucose Oxyhemoglobin Sodium Potassium Chloride Carbon Dioxide BUN Creatinine Glucose POC Glucose 190 H 198 H Lactic Acid Calcium Phosphorus Magnesium AST ALT Lactate Dehydrogenase CK-MB (CK-2) C-Reactive Protein NT-Pro-B Natriuret Pep Total Protein Albumin Arterial Blood Glucose Urine WBC (Auto) 01/02/20 01/02/20 01/03/20 21:43 23:33 05:42 WBC RBC Hgb Hct MCHC RDW MCV MCH Lymph % (Auto) [place] % (Auto) [place] # Eos # Lymph # (Auto) [place] # (Auto) Eos # (Auto) Seg Neutrophils % Seg Neuts % (Manual) Baso # (Auto) Lymphocytes % (Manual) Monocytes % (Manual) Eosinophils % (Manual) Basophils % (Manual) Seg Neutrophils # Seg Neutrophils # Man Lymphocytes # (Manual) Monocytes # (Manual) Eosinophils # (Manual) Nucleated RBC % Basophils # (Manual) APTT Heparin Anti-Xa Level 0.10 L ABG pH POC ABG pO2 ABG pO2 ABG HCO3 ABG O2 Saturation ABG Base Excess POC ABG pCO2 ABG Hemoglobin ABG Oxyhemoglobin ABG Glucose Oxyhemoglobin Sodium Potassium Chloride Carbon Dioxide BUN Creatinine Glucose POC Glucose 180 H 163 H Lactic Acid Calcium Phosphorus Magnesium AST ALT Lactate Dehydrogenase CK-MB (CK-2) C-Reactive Protein NT-Pro-B Natriuret Pep Total Protein Albumin Arterial Blood Glucose Urine WBC (Auto) 01/03/20 01/03/20 01/03/20 06:50 07:25 07:45 WBC 12.1 H RBC 3.35 L Hgb 9.0 L Hct 28.9 L MCHC 31 L RDW 16.6 H MCV MCH 27 L Lymph % (Auto) 13.0 L [place] % (Auto) 8.6 H [place] # Eos # Lymph # (Auto) [place] # (Auto) 1.0 H Eos # (Auto) Seg Neutrophils % 75.9 H Seg Neuts % (Manual) Baso # (Auto) Lymphocytes % (Manual) Monocytes % (Manual) Eosinophils % (Manual) Basophils % (Manual) Seg Neutrophils # 9.2 H Seg Neutrophils # Man Lymphocytes # (Manual) Monocytes # (Manual) Eosinophils # (Manual) Nucleated RBC % Basophils # (Manual) APTT Heparin Anti-Xa Level 0.29 L ABG pH POC ABG pO2 ABG pO2 ABG HCO3 ABG O2 Saturation ABG Base Excess POC ABG pCO2 ABG Hemoglobin ABG Oxyhemoglobin ABG Glucose Oxyhemoglobin Sodium Potassium 3.3 L D Chloride Carbon Dioxide 35 H D BUN 23 H Creatinine 0.6 L Glucose 149 H POC Glucose Lactic Acid Calcium Phosphorus Magnesium AST ALT 88 H Lactate Dehydrogenase CK-MB (CK-2) C-Reactive Protein NT-Pro-B Natriuret Pep Total Protein 6.2 L Albumin 2.9 L Arterial Blood Glucose Urine WBC (Auto) 01/03/20 01/03/20 01/03/20 12:05 17:42 18:30 WBC RBC Hgb Hct MCHC RDW MCV MCH Lymph % (Auto) [place] % (Auto) [place] # Eos # Lymph # (Auto) [place] # (Auto) Eos # (Auto) Seg Neutrophils % Seg Neuts % (Manual) Baso # (Auto) Lymphocytes % (Manual) Monocytes % (Manual) Eosinophils % (Manual) Basophils % (Manual) Seg Neutrophils # Seg Neutrophils # Man Lymphocytes # (Manual) Monocytes # (Manual) Eosinophils # (Manual) Nucleated RBC % Basophils # (Manual) APTT Heparin Anti-Xa Level ABG pH POC ABG pO2 ABG pO2 70.7 L ABG HCO3 36.1 H ABG O2 Saturation 94.4 L ABG Base Excess 10.0 H POC ABG pCO2 ABG Hemoglobin 9.7 L ABG Oxyhemoglobin ABG Glucose Oxyhemoglobin 91.8 L Sodium Potassium Chloride Carbon Dioxide BUN Creatinine Glucose POC Glucose 128 H 132 H Lactic Acid Calcium Phosphorus Magnesium AST ALT Lactate Dehydrogenase CK-MB (CK-2) C-Reactive Protein NT-Pro-B Natriuret Pep Total Protein Albumin Arterial Blood Glucose Urine WBC (Auto) 01/04/20 01/04/20 01/04/20 00:10 04:26 05:23 WBC RBC Hgb Hct MCHC RDW MCV MCH Lymph % (Auto) [place] % (Auto) [place] # Eos # Lymph # (Auto) [place] # (Auto) Eos # (Auto) Seg Neutrophils % Seg Neuts % (Manual) Baso # (Auto) Lymphocytes % (Manual) Monocytes % (Manual) Eosinophils % (Manual) Basophils % (Manual) Seg Neutrophils # Seg Neutrophils # Man Lymphocytes # (Manual) Monocytes # (Manual) Eosinophils # (Manual) Nucleated RBC % Basophils # (Manual) APTT Heparin Anti-Xa Level 0.16 L ABG pH POC ABG pO2 ABG pO2 ABG HCO3 ABG O2 Saturation ABG Base Excess POC ABG pCO2 ABG Hemoglobin ABG Oxyhemoglobin ABG Glucose Oxyhemoglobin Sodium Potassium Chloride Carbon Dioxide BUN Creatinine Glucose POC Glucose 121 H 119 H Lactic Acid Calcium Phosphorus Magnesium AST ALT Lactate Dehydrogenase CK-MB (CK-2) C-Reactive Protein NT-Pro-B Natriuret Pep Total Protein Albumin Arterial Blood Glucose Urine WBC (Auto) 01/04/20 01/04/20 01/04/20 09:50 09:50 12:18 WBC 15.4 H RBC 3.30 L Hgb 8.7 L Hct 28.2 L MCHC 31 L RDW 17.0 H MCV MCH 26 L Lymph % (Auto) [place] % (Auto) 7.6 H [place] # Eos # Lymph # (Auto) [place] # (Auto) 1.2 H Eos # (Auto) Seg Neutrophils % 75.4 H Seg Neuts % (Manual) Baso # (Auto) Lymphocytes % (Manual) Monocytes % (Manual) Eosinophils % (Manual) Basophils % (Manual) Seg Neutrophils # 11.6 H Seg Neutrophils # Man Lymphocytes # (Manual) Monocytes # (Manual) Eosinophils # (Manual) Nucleated RBC % Basophils # (Manual) APTT Heparin Anti-Xa Level ABG pH POC ABG pO2 ABG pO2 ABG HCO3 ABG O2 Saturation ABG Base Excess POC ABG pCO2 ABG Hemoglobin ABG Oxyhemoglobin ABG Glucose Oxyhemoglobin Sodium 148 H Potassium 3.5 L Chloride Carbon Dioxide 32 H BUN Creatinine 0.6 L Glucose 114 H POC Glucose 111 H Lactic Acid Calcium Phosphorus Magnesium AST ALT 59 H Lactate Dehydrogenase CK-MB (CK-2) C-Reactive Protein NT-Pro-B Natriuret Pep Total Protein Albumin 2.6 L Arterial Blood Glucose Urine WBC (Auto) 01/05/20 01/05/20 01/05/20 04:05 04:05 05:19 WBC 11.7 H RBC 3.50 L Hgb 9.3 L Hct 29.9 L MCHC 31 L RDW 16.6 H MCV MCH 27 L Lymph % (Auto) 13.1 L [place] % (Auto) 9.7 H [place] # Eos # Lymph # (Auto) [place] # (Auto) 1.1 H Eos # (Auto) Seg Neutrophils % 74.0 H Seg Neuts % (Manual) Baso # (Auto) Lymphocytes % (Manual) Monocytes % (Manual) Eosinophils % (Manual) Basophils % (Manual) Seg Neutrophils # 8.6 H Seg Neutrophils # Man Lymphocytes # (Manual) Monocytes # (Manual) Eosinophils # (Manual) Nucleated RBC % Basophils # (Manual) APTT Heparin Anti-Xa Level ABG pH POC ABG pO2 ABG pO2 ABG HCO3 ABG O2 Saturation ABG Base Excess POC ABG pCO2 ABG Hemoglobin ABG Oxyhemoglobin ABG Glucose Oxyhemoglobin Sodium 151 H Potassium Chloride Carbon Dioxide 34 H BUN Creatinine 0.7 L Glucose POC Glucose 112 H Lactic Acid Calcium Phosphorus Magnesium AST ALT 59 H Lactate Dehydrogenase CK-MB (CK-2) C-Reactive Protein NT-Pro-B Natriuret Pep Total Protein 5.8 L Albumin 2.6 L Arterial Blood Glucose Urine WBC (Auto) 01/05/20 01/06/20 01/06/20 16:04 00:23 04:44 WBC RBC 3.36 L Hgb 8.9 L Hct 28.7 L MCHC 31 L RDW 16.9 H MCV MCH 26 L Lymph % (Auto) [place] % (Auto) 9.4 H [place] # Eos # Lymph # (Auto) [place] # (Auto) Eos # (Auto) Seg Neutrophils % Seg Neuts % (Manual) Baso # (Auto) Lymphocytes % (Manual) Monocytes % (Manual) Eosinophils % (Manual) Basophils % (Manual) Seg Neutrophils # Seg Neutrophils # Man Lymphocytes # (Manual) Monocytes # (Manual) Eosinophils # (Manual) Nucleated RBC % Basophils # (Manual) APTT Heparin Anti-Xa Level ABG pH POC ABG pO2 ABG pO2 ABG HCO3 ABG O2 Saturation ABG Base Excess POC ABG pCO2 ABG Hemoglobin ABG Oxyhemoglobin ABG Glucose Oxyhemoglobin Sodium 151 H Potassium 3.2 L Chloride Carbon Dioxide 34 H BUN Creatinine 0.6 L Glucose POC Glucose 107 H Lactic Acid Calcium Phosphorus Magnesium AST ALT Lactate Dehydrogenase CK-MB (CK-2) C-Reactive Protein NT-Pro-B Natriuret Pep Total Protein Albumin Arterial Blood Glucose Urine WBC (Auto) 01/06/20 01/06/20 01/06/20 04:44 05:33 12:04 WBC RBC Hgb Hct MCHC RDW MCV MCH Lymph % (Auto) [place] % (Auto) [place] # Eos # Lymph # (Auto) [place] # (Auto) Eos # (Auto) Seg Neutrophils % Seg Neuts % (Manual) Baso # (Auto) Lymphocytes % (Manual) Monocytes % (Manual) Eosinophils % (Manual) Basophils % (Manual) Seg Neutrophils # Seg Neutrophils # Man Lymphocytes # (Manual) Monocytes # (Manual) Eosinophils # (Manual) Nucleated RBC % Basophils # (Manual) APTT Heparin Anti-Xa Level ABG pH POC ABG pO2 ABG pO2 ABG HCO3 ABG O2 Saturation ABG Base Excess POC ABG pCO2 ABG Hemoglobin ABG Oxyhemoglobin ABG Glucose Oxyhemoglobin Sodium 151 H Potassium 3.4 L Chloride Carbon Dioxide 33 H BUN Creatinine 0.6 L Glucose 118 H POC Glucose 118 H 123 H Lactic Acid Calcium Phosphorus Magnesium AST ALT Lactate Dehydrogenase CK-MB (CK-2) C-Reactive Protein NT-Pro-B Natriuret Pep Total Protein 6.2 L Albumin 2.6 L Arterial Blood Glucose Urine WBC (Auto) 01/06/20 01/07/20 01/07/20 17:54 00:06 04:10 WBC RBC 3.42 L Hgb 8.9 L Hct 29.0 L MCHC 31 L RDW 17.1 H MCV MCH 26 L Lymph % (Auto) [place] % (Auto) 8.4 H [place] # Eos # Lymph # (Auto) [place] # (Auto) Eos # (Auto) Seg Neutrophils % Seg Neuts % (Manual) Baso # (Auto) Lymphocytes % (Manual) Monocytes % (Manual) Eosinophils % (Manual) Basophils % (Manual) Seg Neutrophils # Seg Neutrophils # Man Lymphocytes # (Manual) Monocytes # (Manual) Eosinophils # (Manual) Nucleated RBC % Basophils # (Manual) APTT Heparin Anti-Xa Level ABG pH POC ABG pO2 ABG pO2 ABG HCO3 ABG O2 Saturation ABG Base Excess POC ABG pCO2 ABG Hemoglobin ABG Oxyhemoglobin ABG Glucose Oxyhemoglobin Sodium Potassium Chloride Carbon Dioxide BUN Creatinine Glucose POC Glucose 112 H 126 H Lactic Acid Calcium Phosphorus Magnesium AST ALT Lactate Dehydrogenase CK-MB (CK-2) C-Reactive Protein NT-Pro-B Natriuret Pep Total Protein Albumin Arterial Blood Glucose Urine WBC (Auto) 01/07/20 01/07/20 01/07/20 04:10 05:59 12:27 WBC RBC Hgb Hct MCHC RDW MCV MCH Lymph % (Auto) [place] % (Auto) [place] # Eos # Lymph # (Auto) [place] # (Auto) Eos # (Auto) Seg Neutrophils % Seg Neuts % (Manual) Baso # (Auto) Lymphocytes % (Manual) Monocytes % (Manual) Eosinophils % (Manual) Basophils % (Manual) Seg Neutrophils # Seg Neutrophils # Man Lymphocytes # (Manual) Monocytes # (Manual) Eosinophils # (Manual) Nucleated RBC % Basophils # (Manual) APTT Heparin Anti-Xa Level ABG pH POC ABG pO2 ABG pO2 ABG HCO3 ABG O2 Saturation ABG Base Excess POC ABG pCO2 ABG Hemoglobin ABG Oxyhemoglobin ABG Glucose Oxyhemoglobin Sodium 153 H Potassium 3.5 L Chloride Carbon Dioxide 34 H BUN Creatinine 0.6 L Glucose 121 H POC Glucose 121 H 126 H Lactic Acid Calcium Phosphorus Magnesium AST ALT Lactate Dehydrogenase CK-MB (CK-2) C-Reactive Protein NT-Pro-B Natriuret Pep Total Protein 5.9 L Albumin 2.4 L Arterial Blood Glucose Urine WBC (Auto) 01/07/20 01/08/20 01/08/20 18:12 00:03 05:41 WBC RBC Hgb Hct MCHC RDW MCV MCH Lymph % (Auto) [place] % (Auto) [place] # Eos # Lymph # (Auto) [place] # (Auto) Eos # (Auto) Seg Neutrophils % Seg Neuts % (Manual) Baso # (Auto) Lymphocytes % (Manual) Monocytes % (Manual) Eosinophils % (Manual) Basophils % (Manual) Seg Neutrophils # Seg Neutrophils # Man Lymphocytes # (Manual) Monocytes # (Manual) Eosinophils # (Manual) Nucleated RBC % Basophils # (Manual) APTT Heparin Anti-Xa Level ABG pH POC ABG pO2 ABG pO2 ABG HCO3 ABG O2 Saturation ABG Base Excess POC ABG pCO2 ABG Hemoglobin ABG Oxyhemoglobin ABG Glucose Oxyhemoglobin Sodium Potassium Chloride Carbon Dioxide BUN Creatinine Glucose POC Glucose 124 H 130 H 138 H Lactic Acid Calcium Phosphorus Magnesium AST ALT Lactate Dehydrogenase CK-MB (CK-2) C-Reactive Protein NT-Pro-B Natriuret Pep Total Protein Albumin Arterial Blood Glucose Urine WBC (Auto) 01/08/20 01/08/20 01/08/20 09:28 11:42 18:21 WBC RBC Hgb Hct MCHC RDW MCV MCH Lymph % (Auto) [place] % (Auto) [place] # Eos # Lymph # (Auto) [place] # (Auto) Eos # (Auto) Seg Neutrophils % Seg Neuts % (Manual) Baso # (Auto) Lymphocytes % (Manual) Monocytes % (Manual) Eosinophils % (Manual) Basophils % (Manual) Seg Neutrophils # Seg Neutrophils # Man Lymphocytes # (Manual) Monocytes # (Manual) Eosinophils # (Manual) Nucleated RBC % Basophils # (Manual) APTT Heparin Anti-Xa Level ABG pH POC ABG pO2 ABG pO2 ABG HCO3 ABG O2 Saturation ABG Base Excess POC ABG pCO2 ABG Hemoglobin ABG Oxyhemoglobin ABG Glucose Oxyhemoglobin Sodium Potassium Chloride Carbon Dioxide BUN Creatinine Glucose POC Glucose 181 H 150 H 129 H Lactic Acid Calcium Phosphorus Magnesium AST ALT Lactate Dehydrogenase CK-MB (CK-2) C-Reactive Protein NT-Pro-B Natriuret Pep Total Protein Albumin Arterial Blood Glucose Urine WBC (Auto) 01/08/20 01/08/20 01/09/20 19:25 23:55 04:11 WBC RBC 3.43 L Hgb 8.9 L Hct 28.7 L MCHC 31 L RDW 17.6 H MCV MCH 26 L Lymph % (Auto) [place] % (Auto) 8.6 H [place] # Eos # Lymph # (Auto) [place] # (Auto) Eos # (Auto) Seg Neutrophils % Seg Neuts % (Manual) Baso # (Auto) Lymphocytes % (Manual) Monocytes % (Manual) Eosinophils % (Manual) Basophils % (Manual) Seg Neutrophils # Seg Neutrophils # Man Lymphocytes # (Manual) Monocytes # (Manual) Eosinophils # (Manual) Nucleated RBC % Basophils # (Manual) APTT Heparin Anti-Xa Level ABG pH POC ABG pO2 ABG pO2 ABG HCO3 ABG O2 Saturation ABG Base Excess POC ABG pCO2 ABG Hemoglobin ABG Oxyhemoglobin ABG Glucose Oxyhemoglobin Sodium Potassium Chloride Carbon Dioxide BUN Creatinine 0.7 L Glucose 117 H POC Glucose 132 H Lactic Acid Calcium Phosphorus Magnesium AST ALT Lactate Dehydrogenase CK-MB (CK-2) C-Reactive Protein NT-Pro-B Natriuret Pep Total Protein Albumin Arterial Blood Glucose Urine WBC (Auto) 01/09/20 01/09/20 01/09/20 04:11 05:38 22:58 WBC RBC Hgb Hct MCHC RDW MCV MCH Lymph % (Auto) [place] % (Auto) [place] # Eos # Lymph # (Auto) [place] # (Auto) Eos # (Auto) Seg Neutrophils % Seg Neuts % (Manual) Baso # (Auto) Lymphocytes % (Manual) Monocytes % (Manual) Eosinophils % (Manual) Basophils % (Manual) Seg Neutrophils # Seg Neutrophils # Man Lymphocytes # (Manual) Monocytes # (Manual) Eosinophils # (Manual) Nucleated RBC % Basophils # (Manual) APTT Heparin Anti-Xa Level ABG pH POC ABG pO2 ABG pO2 ABG HCO3 ABG O2 Saturation ABG Base Excess POC ABG pCO2 ABG Hemoglobin ABG Oxyhemoglobin ABG Glucose Oxyhemoglobin Sodium 147 H Potassium 3.3 L D Chloride Carbon Dioxide 32 H BUN Creatinine 0.6 L Glucose 106 H POC Glucose 107 H 113 H Lactic Acid Calcium Phosphorus Magnesium AST ALT Lactate Dehydrogenase CK-MB (CK-2) C-Reactive Protein NT-Pro-B Natriuret Pep Total Protein Albumin Arterial Blood Glucose Urine WBC (Auto) 01/10/20 01/10/20 01/10/20 04:05 11:36 17:54 WBC RBC Hgb Hct MCHC RDW MCV MCH Lymph % (Auto) [place] % (Auto) [place] # Eos # Lymph # (Auto) [place] # (Auto) Eos # (Auto) Seg Neutrophils % Seg Neuts % (Manual) Baso # (Auto) Lymphocytes % (Manual) Monocytes % (Manual) Eosinophils % (Manual) Basophils % (Manual) Seg Neutrophils # Seg Neutrophils # Man Lymphocytes # (Manual) Monocytes # (Manual) Eosinophils # (Manual) Nucleated RBC % Basophils # (Manual) APTT Heparin Anti-Xa Level ABG pH POC ABG pO2 ABG pO2 ABG HCO3 ABG O2 Saturation ABG Base Excess POC ABG pCO2 ABG Hemoglobin ABG Oxyhemoglobin ABG Glucose Oxyhemoglobin Sodium Potassium Chloride Carbon Dioxide BUN Creatinine 0.7 L Glucose 110 H POC Glucose 129 H 117 H Lactic Acid Calcium Phosphorus Magnesium AST ALT Lactate Dehydrogenase CK-MB (CK-2) C-Reactive Protein NT-Pro-B Natriuret Pep Total Protein Albumin Arterial Blood Glucose Urine WBC (Auto) 01/10/20 01/11/20 01/11/20 23:52 03:19 12:09 WBC RBC Hgb Hct MCHC RDW MCV MCH Lymph % (Auto) [place] % (Auto) [place] # Eos # Lymph # (Auto) [place] # (Auto) Eos # (Auto) Seg Neutrophils % Seg Neuts % (Manual) Baso # (Auto) Lymphocytes % (Manual) Monocytes % (Manual) Eosinophils % (Manual) Basophils % (Manual) Seg Neutrophils # Seg Neutrophils # Man Lymphocytes # (Manual) Monocytes # (Manual) Eosinophils # (Manual) Nucleated RBC % Basophils # (Manual) APTT Heparin Anti-Xa Level ABG pH POC ABG pO2 ABG pO2 ABG HCO3 ABG O2 Saturation ABG Base Excess POC ABG pCO2 ABG Hemoglobin ABG Oxyhemoglobin ABG Glucose Oxyhemoglobin Sodium Potassium Chloride Carbon Dioxide BUN Creatinine Glucose POC Glucose 117 H 136 H 115 H Lactic Acid Calcium Phosphorus Magnesium AST ALT Lactate Dehydrogenase CK-MB (CK-2) C-Reactive Protein NT-Pro-B Natriuret Pep Total Protein Albumin Arterial Blood Glucose Urine WBC (Auto) 01/11/20 01/11/20 01/12/20 18:27 23:28 00:23 WBC RBC Hgb 9.8 L Hct 31.6 L MCHC 31 L RDW 17.8 H MCV 83 L MCH 26 L Lymph % (Auto) [place] % (Auto) 8.0 H [place] # Eos # Lymph # (Auto) [place] # (Auto) Eos # (Auto) Seg Neutrophils % Seg Neuts % (Manual) Baso # (Auto) Lymphocytes % (Manual) Monocytes % (Manual) Eosinophils % (Manual) Basophils % (Manual) Seg Neutrophils # Seg Neutrophils # Man Lymphocytes # (Manual) Monocytes # (Manual) Eosinophils # (Manual) Nucleated RBC % Basophils # (Manual) APTT Heparin Anti-Xa Level ABG pH POC ABG pO2 ABG pO2 ABG HCO3 ABG O2 Saturation ABG Base Excess POC ABG pCO2 ABG Hemoglobin ABG Oxyhemoglobin ABG Glucose Oxyhemoglobin Sodium Potassium Chloride Carbon Dioxide BUN Creatinine Glucose POC Glucose 118 H 122 H Lactic Acid Calcium Phosphorus Magnesium AST ALT Lactate Dehydrogenase CK-MB (CK-2) C-Reactive Protein NT-Pro-B Natriuret Pep Total Protein Albumin Arterial Blood Glucose Urine WBC (Auto) 01/12/20 01/12/20 01/12/20 00:23 04:18 04:18 WBC RBC Hgb 9.6 L Hct 30.9 L MCHC 31 L RDW 17.3 H MCV 81 L MCH 25 L Lymph % (Auto) [place] % (Auto) [place] # Eos # Lymph # (Auto) [place] # (Auto) Eos # (Auto) Seg Neutrophils % Seg Neuts % (Manual) Baso # (Auto) Lymphocytes % (Manual) Monocytes % (Manual) Eosinophils % (Manual) Basophils % (Manual) Seg Neutrophils # Seg Neutrophils # Man Lymphocytes # (Manual) Monocytes # (Manual) Eosinophils # (Manual) Nucleated RBC % Basophils # (Manual) APTT Heparin Anti-Xa Level ABG pH POC ABG pO2 ABG pO2 ABG HCO3 ABG O2 Saturation ABG Base Excess POC ABG pCO2 ABG Hemoglobin ABG Oxyhemoglobin ABG Glucose Oxyhemoglobin Sodium Potassium Chloride Carbon Dioxide BUN Creatinine 0.7 L 0.7 L Glucose 111 H 108 H POC Glucose Lactic Acid Calcium Phosphorus Magnesium AST ALT Lactate Dehydrogenase CK-MB (CK-2) C-Reactive Protein NT-Pro-B Natriuret Pep Total Protein Albumin 2.6 L Arterial Blood Glucose Urine WBC (Auto) 01/12/20 01/12/20 01/12/20 06:03 12:27 13:58 WBC RBC Hgb Hct MCHC RDW MCV MCH Lymph % (Auto) [place] % (Auto) [place] # Eos # Lymph # (Auto) [place] # (Auto) Eos # (Auto) Seg Neutrophils % Seg Neuts % (Manual) Baso # (Auto) Lymphocytes % (Manual) Monocytes % (Manual) Eosinophils % (Manual) Basophils % (Manual) Seg Neutrophils # Seg Neutrophils # Man Lymphocytes # (Manual) Monocytes # (Manual) Eosinophils # (Manual) Nucleated RBC % Basophils # (Manual) APTT Heparin Anti-Xa Level ABG pH 7.453 H POC ABG pO2 76.6 L ABG pO2 ABG HCO3 ABG O2 Saturation ABG Base Excess POC ABG pCO2 ABG Hemoglobin 10.3 L ABG Oxyhemoglobin ABG Glucose 99 H Oxyhemoglobin Sodium Potassium Chloride Carbon Dioxide BUN Creatinine Glucose POC Glucose 128 H 121 H Lactic Acid Calcium Phosphorus Magnesium AST ALT Lactate Dehydrogenase CK-MB (CK-2) C-Reactive Protein NT-Pro-B Natriuret Pep Total Protein Albumin Arterial Blood Glucose 99 H Urine WBC (Auto) 01/12/20 01/13/20 01/13/20 18:24 12:01 17:46 WBC RBC Hgb Hct MCHC RDW MCV MCH Lymph % (Auto) [place] % (Auto) [place] # Eos # Lymph # (Auto) [place] # (Auto) Eos # (Auto) Seg Neutrophils % Seg Neuts % (Manual) Baso # (Auto) Lymphocytes % (Manual) Monocytes % (Manual) Eosinophils % (Manual) Basophils % (Manual) Seg Neutrophils # Seg Neutrophils # Man Lymphocytes # (Manual) Monocytes # (Manual) Eosinophils # (Manual) Nucleated RBC % Basophils # (Manual) APTT Heparin Anti-Xa Level ABG pH POC ABG pO2 ABG pO2 ABG HCO3 ABG O2 Saturation ABG Base Excess POC ABG pCO2 ABG Hemoglobin ABG Oxyhemoglobin ABG Glucose Oxyhemoglobin Sodium Potassium Chloride Carbon Dioxide BUN Creatinine Glucose POC Glucose 119 H 107 H 124 H Lactic Acid Calcium Phosphorus Magnesium AST ALT Lactate Dehydrogenase CK-MB (CK-2) C-Reactive Protein NT-Pro-B Natriuret Pep Total Protein Albumin Arterial Blood Glucose Urine WBC (Auto) 01/13/20 01/14/20 01/14/20 20:40 00:10 05:33 WBC RBC Hgb Hct MCHC RDW MCV MCH Lymph % (Auto) [place] % (Auto) [place] # Eos # Lymph # (Auto) [place] # (Auto) Eos # (Auto) Seg Neutrophils % Seg Neuts % (Manual) Baso # (Auto) Lymphocytes % (Manual) Monocytes % (Manual) Eosinophils % (Manual) Basophils % (Manual) Seg Neutrophils # Seg Neutrophils # Man Lymphocytes # (Manual) Monocytes # (Manual) Eosinophils # (Manual) Nucleated RBC % Basophils # (Manual) APTT Heparin Anti-Xa Level ABG pH POC ABG pO2 ABG pO2 65.3 L ABG HCO3 31.8 H ABG O2 Saturation 93.5 L ABG Base Excess 6.7 H POC ABG pCO2 ABG Hemoglobin 13.3 L ABG Oxyhemoglobin ABG Glucose Oxyhemoglobin 90.9 L Sodium Potassium Chloride Carbon Dioxide BUN Creatinine Glucose POC Glucose 111 H 111 H Lactic Acid Calcium Phosphorus Magnesium AST ALT Lactate Dehydrogenase CK-MB (CK-2) C-Reactive Protein NT-Pro-B Natriuret Pep Total Protein Albumin Arterial Blood Glucose Urine WBC (Auto) 01/14/20 01/14/20 01/14/20 12:10 16:14 16:14 WBC RBC Hgb 10.6 L Hct 34.2 L MCHC 31 L RDW 18.3 H MCV 83 L MCH 26 L Lymph % (Auto) [place] % (Auto) 7.4 H [place] # Eos # Lymph # (Auto) [place] # (Auto) Eos # (Auto) Seg Neutrophils % 71.9 H Seg Neuts % (Manual) Baso # (Auto) Lymphocytes % (Manual) Monocytes % (Manual) Eosinophils % (Manual) Basophils % (Manual) Seg Neutrophils # Seg Neutrophils # Man Lymphocytes # (Manual) Monocytes # (Manual) Eosinophils # (Manual) Nucleated RBC % Basophils # (Manual) APTT Heparin Anti-Xa Level ABG pH POC ABG pO2 ABG pO2 ABG HCO3 ABG O2 Saturation ABG Base Excess POC ABG pCO2 ABG Hemoglobin ABG Oxyhemoglobin ABG Glucose Oxyhemoglobin Sodium Potassium Chloride Carbon Dioxide 31 H BUN Creatinine 0.6 L Glucose 131 H POC Glucose 139 H Lactic Acid Calcium Phosphorus Magnesium AST ALT Lactate Dehydrogenase CK-MB (CK-2) C-Reactive Protein NT-Pro-B Natriuret Pep Total Protein Albumin Arterial Blood Glucose Urine WBC (Auto) 01/14/20 01/15/20 01/15/20 18:05 00:52 05:35 WBC RBC Hgb Hct MCHC RDW MCV MCH Lymph % (Auto) [place] % (Auto) [place] # Eos # Lymph # (Auto) [place] # (Auto) Eos # (Auto) Seg Neutrophils % Seg Neuts % (Manual) Baso # (Auto) Lymphocytes % (Manual) Monocytes % (Manual) Eosinophils % (Manual) Basophils % (Manual) Seg Neutrophils # Seg Neutrophils # Man Lymphocytes # (Manual) Monocytes # (Manual) Eosinophils # (Manual) Nucleated RBC % Basophils # (Manual) APTT Heparin Anti-Xa Level ABG pH POC ABG pO2 ABG pO2 ABG HCO3 ABG O2 Saturation ABG Base Excess POC ABG pCO2 ABG Hemoglobin ABG Oxyhemoglobin ABG Glucose Oxyhemoglobin Sodium Potassium Chloride Carbon Dioxide BUN Creatinine Glucose POC Glucose 147 H 140 H 159 H Lactic Acid Calcium Phosphorus Magnesium AST ALT Lactate Dehydrogenase CK-MB (CK-2) C-Reactive Protein NT-Pro-B Natriuret Pep Total Protein Albumin Arterial Blood Glucose Urine WBC (Auto) 01/15/20 01/15/20 01/16/20 12:52 17:43 00:32 WBC RBC Hgb Hct MCHC RDW MCV MCH Lymph % (Auto) [place] % (Auto) [place] # Eos # Lymph # (Auto) [place] # (Auto) Eos # (Auto) Seg Neutrophils % Seg Neuts % (Manual) Baso # (Auto) Lymphocytes % (Manual) Monocytes % (Manual) Eosinophils % (Manual) Basophils % (Manual) Seg Neutrophils # Seg Neutrophils # Man Lymphocytes # (Manual) Monocytes # (Manual) Eosinophils # (Manual) Nucleated RBC % Basophils # (Manual) APTT Heparin Anti-Xa Level ABG pH POC ABG pO2 ABG pO2 ABG HCO3 ABG O2 Saturation ABG Base Excess POC ABG pCO2 ABG Hemoglobin ABG Oxyhemoglobin ABG Glucose Oxyhemoglobin Sodium Potassium Chloride Carbon Dioxide BUN Creatinine Glucose POC Glucose 164 H 167 H 153 H Lactic Acid Calcium Phosphorus Magnesium AST ALT Lactate Dehydrogenase CK-MB (CK-2) C-Reactive Protein NT-Pro-B Natriuret Pep Total Protein Albumin Arterial Blood Glucose Urine WBC (Auto) 01/16/20 01/16/20 01/17/20 05:46 11:48 06:38 WBC RBC Hgb Hct MCHC RDW MCV MCH Lymph % (Auto) [place] % (Auto) [place] # Eos # Lymph # (Auto) [place] # (Auto) Eos # (Auto) Seg Neutrophils % Seg Neuts % (Manual) Baso # (Auto) Lymphocytes % (Manual) Monocytes % (Manual) Eosinophils % (Manual) Basophils % (Manual) Seg Neutrophils # Seg Neutrophils # Man Lymphocytes # (Manual) Monocytes # (Manual) Eosinophils # (Manual) Nucleated RBC % Basophils # (Manual) APTT Heparin Anti-Xa Level ABG pH POC ABG pO2 ABG pO2 ABG HCO3 ABG O2 Saturation ABG Base Excess POC ABG pCO2 ABG Hemoglobin ABG Oxyhemoglobin ABG Glucose Oxyhemoglobin Sodium Potassium Chloride Carbon Dioxide BUN Creatinine Glucose POC Glucose 163 H 155 H 116 H Lactic Acid Calcium Phosphorus Magnesium AST ALT Lactate Dehydrogenase CK-MB (CK-2) C-Reactive Protein NT-Pro-B Natriuret Pep Total Protein Albumin Arterial Blood Glucose Urine WBC (Auto) 01/17/20 01/17/20 01/18/20 11:36 17:43 00:12 WBC RBC Hgb Hct MCHC RDW MCV MCH Lymph % (Auto) [place] % (Auto) [place] # Eos # Lymph # (Auto) [place] # (Auto) Eos # (Auto) Seg Neutrophils % Seg Neuts % (Manual) Baso # (Auto) Lymphocytes % (Manual) Monocytes % (Manual) Eosinophils % (Manual) Basophils % (Manual) Seg Neutrophils # Seg Neutrophils # Man Lymphocytes # (Manual) Monocytes # (Manual) Eosinophils # (Manual) Nucleated RBC % Basophils # (Manual) APTT Heparin Anti-Xa Level ABG pH POC ABG pO2 ABG pO2 ABG HCO3 ABG O2 Saturation ABG Base Excess POC ABG pCO2 ABG Hemoglobin ABG Oxyhemoglobin ABG Glucose Oxyhemoglobin Sodium Potassium Chloride Carbon Dioxide BUN Creatinine Glucose POC Glucose 110 H 134 H 108 H Lactic Acid Calcium Phosphorus Magnesium AST ALT Lactate Dehydrogenase CK-MB (CK-2) C-Reactive Protein NT-Pro-B Natriuret Pep Total Protein Albumin Arterial Blood Glucose Urine WBC (Auto) 01/18/20 01/18/20 01/18/20 05:37 06:46 06:46 WBC RBC Hgb 10.1 L Hct 32.2 L MCHC 31 L RDW 18.1 H MCV 81 L MCH 25 L Lymph % (Auto) [place] % (Auto) [place] # Eos # Lymph # (Auto) [place] # (Auto) Eos # (Auto) Seg Neutrophils % 71.9 H Seg Neuts % (Manual) Baso # (Auto) Lymphocytes % (Manual) Monocytes % (Manual) Eosinophils % (Manual) Basophils % (Manual) Seg Neutrophils # Seg Neutrophils # Man Lymphocytes # (Manual) Monocytes # (Manual) Eosinophils # (Manual) Nucleated RBC % Basophils # (Manual) APTT Heparin Anti-Xa Level ABG pH POC ABG pO2 ABG pO2 ABG HCO3 ABG O2 Saturation ABG Base Excess POC ABG pCO2 ABG Hemoglobin ABG Oxyhemoglobin ABG Glucose Oxyhemoglobin Sodium Potassium Chloride Carbon Dioxide BUN Creatinine 0.7 L Glucose 155 H POC Glucose 168 H Lactic Acid Calcium Phosphorus Magnesium AST ALT Lactate Dehydrogenase CK-MB (CK-2) C-Reactive Protein NT-Pro-B Natriuret Pep Total Protein Albumin Arterial Blood Glucose Urine WBC (Auto) 01/18/20 01/18/2001/17/20 12:05 17:14 23:28 WBC RBC Hgb Hct MCHC RDW MCV MCH Lymph % (Auto) [place] % (Auto) [place] # Eos # Lymph # (Auto) [place] # (Auto) Eos # (Auto) Seg Neutrophils % Seg Neuts % (Manual) Baso # (Auto) Lymphocytes % (Manual) Monocytes % (Manual) Eosinophils % (Manual) Basophils % (Manual) Seg Neutrophils # Seg Neutrophils # Man Lymphocytes # (Manual) Monocytes # (Manual) Eosinophils # (Manual) Nucleated RBC % Basophils # (Manual) APTT Heparin Anti-Xa Level ABG pH POC ABG pO2 ABG pO2 ABG HCO3 ABG O2 Saturation ABG Base Excess POC ABG pCO2 ABG Hemoglobin ABG Oxyhemoglobin ABG Glucose Oxyhemoglobin Sodium Potassium Chloride Carbon Dioxide BUN Creatinine Glucose POC Glucose 128 H 126 H 128 H Lactic Acid Calcium Phosphorus Magnesium AST ALT Lactate Dehydrogenase CK-MB (CK-2) C-Reactive Protein NT-Pro-B Natriuret Pep Total Protein Albumin Arterial Blood Glucose Urine WBC (Auto) 01/19/20 01/19/20 01/19/20 05:39 12:33 17:36 WBC RBC Hgb Hct MCHC RDW MCV MCH Lymph % (Auto) [place] % (Auto) [place] # Eos # Lymph # (Auto) [place] # (Auto) Eos # (Auto) Seg Neutrophils % Seg Neuts % (Manual) Baso # (Auto) Lymphocytes % (Manual) Monocytes % (Manual) Eosinophils % (Manual) Basophils % (Manual) Seg Neutrophils # Seg Neutrophils # Man Lymphocytes # (Manual) Monocytes # (Manual) Eosinophils # (Manual) Nucleated RBC % Basophils # (Manual) APTT Heparin Anti-Xa Level ABG pH POC ABG pO2 ABG pO2 ABG HCO3 ABG O2 Saturation ABG Base Excess POC ABG pCO2 ABG Hemoglobin ABG Oxyhemoglobin ABG Glucose Oxyhemoglobin Sodium Potassium Chloride Carbon Dioxide BUN Creatinine Glucose POC Glucose 164 H 171 H 152 H Lactic Acid Calcium Phosphorus Magnesium AST ALT Lactate Dehydrogenase CK-MB (CK-2) C-Reactive Protein NT-Pro-B Natriuret Pep Total Protein Albumin Arterial Blood Glucose Urine WBC (Auto) 01/20/20 01/20/20 01/20/20 00:12 05:20 05:35 WBC RBC Hgb 9.2 L Hct 29.4 L MCHC 31 L RDW 17.9 H MCV 81 L MCH 25 L Lymph % (Auto) [place] % (Auto) [place] # Eos # Lymph # (Auto) [place] # (Auto) Eos # (Auto) Seg Neutrophils % Seg Neuts % (Manual) Baso # (Auto) Lymphocytes % (Manual) Monocytes % (Manual) Eosinophils % (Manual) Basophils % (Manual) Seg Neutrophils # Seg Neutrophils # Man Lymphocytes # (Manual) Monocytes # (Manual) Eosinophils # (Manual) Nucleated RBC % Basophils # (Manual) APTT Heparin Anti-Xa Level ABG pH POC ABG pO2 ABG pO2 ABG HCO3 ABG O2 Saturation ABG Base Excess POC ABG pCO2 ABG Hemoglobin ABG Oxyhemoglobin ABG Glucose Oxyhemoglobin Sodium Potassium Chloride Carbon Dioxide BUN Creatinine Glucose POC Glucose 120 H 136 H Lactic Acid Calcium Phosphorus Magnesium AST ALT Lactate Dehydrogenase CK-MB (CK-2) C-Reactive Protein NT-Pro-B Natriuret Pep Total Protein Albumin Arterial Blood Glucose Urine WBC (Auto) 01/20/20 05:40 WBC RBC Hgb Hct MCHC RDW MCV MCH Lymph % (Auto) [place] % (Auto) [place] # Eos # Lymph # (Auto) [place] # (Auto) Eos # (Auto) Seg Neutrophils % Seg Neuts % (Manual) Baso # (Auto) Lymphocytes % (Manual) Monocytes % (Manual) Eosinophils % (Manual) Basophils % (Manual) Seg Neutrophils # Seg Neutrophils # Man Lymphocytes # (Manual) Monocytes # (Manual) Eosinophils # (Manual) Nucleated RBC % Basophils # (Manual) APTT Heparin Anti-Xa Level ABG pH POC ABG pO2 ABG pO2 ABG HCO3 ABG O2 Saturation ABG Base Excess POC ABG pCO2 ABG Hemoglobin ABG Oxyhemoglobin ABG Glucose Oxyhemoglobin Sodium Potassium Chloride Carbon Dioxide 32 H BUN 22 H Creatinine 0.7 L Glucose 128 H POC Glucose Lactic Acid Calcium Phosphorus Magnesium AST ALT Lactate Dehydrogenase CK-MB (CK-2) C-Reactive Protein NT-Pro-B Natriuret Pep Total Protein Albumin Arterial Blood Glucose Urine WBC (Auto) Chest x-ray: other (none today) Allied health notes reviewed: nursing
[2020-01-20] MEDS: AMIODARONE 200 MG TAB PO SCH (09:55)
[2020-01-20] MEDS: DOCUSATE SODIUM 100 MG/10 ML ORAL LIQD FEEDTUBE SCH ×2 (09:57→23:23)
[2020-01-20] MEDS: FAMOTIDINE 20 MG TAB PO SCH ×2 (09:57→23:24)
[2020-01-20] MEDS: QUEtiapine 100 MG TAB PO SCH ×2 (09:57→22:00)
[2020-01-20] MEDS: GLYCOPYRROLATE 2 MG TAB PO SCH ×2 (09:58→23:24)
[2020-01-20] MEDS: APIXABAN 5 MG TAB PO SCH (09:58)
--- NOTE | 2020-01-20 11:42 | Progress Note ---
Assessment and Plan Atrial fibrillation, paroxysmal on amiodarone and metoprolol currently in sinus rhythm Ischemic Cardiomyopathy re-echo this presentation reports an LVEF 40-45%. echo 08/2018: decreased LVEF 20-25%. Hx of CAD [facility] 12/2018: mild in-stent restenosis. No significant residual disease. Multifocal pneumonia negative COVID-19 test x 3 Chronic Respiratory failure s/p trach History of COPD Acute PE/DVT -initiated on Eliquis Anemia Partial SBO vs ileus Recommendations: Continue amiodarone and metoprolol for paroxysmal atrial fibrillation. Otherwise, conservative cardiac management. Subjective Date of service: 01/20/20 Principal diagnosis: Ac hypoxemic resp failure; Pneumonia; PUI COVID-19; CHF; COPD; HTN Interval history: Nurse reports patient complained of chest pain overnight but has resolved. 12 lead ECG done reviewed. Objective Vital Signs Temp Pulse Pulse Resp Resp BP Pulse Ox 01/20/20 11:16 98 H 20 109/78 96 01/20/20 11:00 100 H 22 113/77 01/20/20 10:45 99 H 19 109/78 83 L 01/20/20 10:30 97 H 26 H 109/78 92 01/20/20 10:16 97 H 16 109/78 93 01/20/20 10:00 98 H 28 H 109/78 94 01/20/20 09:46 98 H 28 H 109/71 89 01/20/20 09:30 97 H 14 109/71 90 01/20/20 09:17 01/20/20 09:16 96 H 21 109/71 97 01/20/20 09:15 96 H 109/71 97 01/20/20 09:14 97 01/20/20 09:00 93 H 23 109/71 95 01/20/20 08:46 94 H 21 109/77 96 01/20/20 08:30 94 H 19 109/77 97 01/20/20 08:16 96 H 23 109/77 97 01/20/20 08:00 98.0 F 96 H 17 109/77 01/20/20 07:46 94 H 16 109/79 97 01/20/20 07:30 126 H 18 109/79 97 01/20/20 07:16 111 H 16 109/79 97 01/20/20 07:00 113 H 20 109/79 96 01/20/20 06:46 107 H 17 110/71 94 01/20/20 06:30 95 H 19 110/71 96 01/20/20 06:23 95 H 110/71 01/20/20 06:16 97 H 20 110/71 97 01/20/20 06:00 94 H 17 110/71 01/20/20 05:46 94 H 14 113/73 96 01/20/20 05:30 96 H 15 113/73 97 01/20/20 05:16 97 H 19 113/73 95 01/20/20 05:00 99 H 13 113/73 01/20/20 04:58 99 H 113/73 97 01/20/20 04:46 100 H 12 110/70 94 01/20/20 04:30 98 H 15 110/70 94 01/20/20 04:16 100 H 23 110/70 93 01/20/20 04:00 99.0 F 97 H 100 H 20 24 110/70 94 01/20/20 03:46 91 H 19 112/92 96 01/20/20 03:30 91 H 16 112/92 94 01/20/20 03:16 97 H 13 112/92 98 01/20/20 03:03 101 H 112/92 01/20/20 03:00 101 H 18 112/92 97 01/20/20 02:46 93 H 14 92/64 94 01/20/20 02:30 93 H 18 92/64 95 01/20/20 02:16 94 H 22 92/64 96 01/20/20 02:00 87 19 92/64 96 01/20/20 01:46 87 20 90/60 97 01/20/20 01:30 87 21 90/60 95 01/20/20 01:26 87 90/60 01/20/20 01:16 86 20 90/60 95 01/20/20 01:00 86 20 90/60 97 01/20/20 00:46 86 21 100/64 95 01/20/20 00:30 85 22 100/64 95 01/20/20 00:28 85 100/64 95 01/20/20 00:16 85 20 100/64 95 01/20/20 00:00 99.8 F H 86 86 20 100/64 95 01/19/20 23:46 84 20 95/59 95 01/19/20 23:34 84 21 95/59 95 01/19/20 23:30 85 15 95/59 95 01/19/20 23:16 86 14 95/59 95 01/19/20 23:00 85 17 95/59 95 01/19/20 22:46 85 14 107/74 96 01/19/20 22:30 84 14 107/74 95 01/19/20 22:16 83 15 107/74 93 01/19/20 22:00 81 16 96/58 01/19/20 21:57 81 107/74 01/19/20 21:46 83 19 107/74 91 01/19/20 21:33 94 01/19/20 21:31 94 H 107/74 95 01/19/20 21:30 94 H 14 107/74 94 01/19/20 21:22 94 H 107/74 01/19/20 21:16 94 H 21 107/74 96 01/19/20 21:00 94 H 22 107/74 100 01/19/20 20:46 94 H 18 113/80 95 01/19/20 20:30 94 H 17 113/80 96 01/19/20 20:16 93 H 17 113/80 96 01/19/20 20:00 99.4 F 95 H 95 H 21 113/80 98 01/19/20 19:46 92 H 22 104/72 96 01/19/20 19:30 91 H 14 104/72 98 01/19/20 19:29 96 H 112/69 97 01/19/20 19:16 91 H 18 104/72 96 01/19/20 19:00 91 H 23 104/72 96 01/19/20 18:46 93 H 28 H 107/68 95 01/19/20 18:30 96 H 23 107/68 95 01/19/20 18:16 95 H 18 107/68 95 01/19/20 18:00 93 H 20 107/68 01/19/20 17:46 92 H 22 114/78 97 01/19/20 17:30 94 H 19 114/78 98 01/19/20 17:16 95 H 21 114/78 98 01/19/20 17:00 95 H 15 114/78 98 01/19/20 16:46 95 H 20 112/69 98 01/19/20 16:30 95 H 25 H 112/69 98 10/27/20 16:16 96 H 24 112/69 98 01/19/20 16:00 101.1 F H 98 H 22 112/69 96 01/19/20 15:46 96 H 20 111/84 99 01/19/20 15:30 96 H 22 111/84 99 01/19/20 15:16 96 H 21 111/84 98 01/19/20 15:00 96 H 25 H 111/84 98 01/19/20 14:46 96 H 25 H 107/77 91 01/19/20 14:30 97 H 23 107/77 94 01/19/20 14:16 97 H 24 107/77 98 01/19/20 14:00 95 H 14 107/77 97 01/19/20 13:46 95 H 22 122/85 97 01/19/20 13:30 95 H 20 122/85 97 01/19/20 13:16 95 H 21 122/85 97 01/19/20 13:00 98 H 18 122/85 97 01/19/20 12:46 99 H 18 111/73 96 01/19/20 12:30 97 H 18 111/73 95 01/19/20 12:16 95 H 19 111/73 95 01/19/20 12:00 98.0 F 90 20 101/66 96 01/19/20 11:46 89 20 101/66 96 Pulse Ox 01/20/20 11:16 01/20/20 11:00 01/20/20 10:45 01/20/20 10:30 01/20/20 10:16 01/20/20 10:00 01/20/20 09:46 01/20/20 09:30 01/20/20 09:17 97 01/20/20 09:16 01/20/20 09:15 01/20/20 09:14 01/20/20 09:00 01/20/20 08:46 01/20/20 08:30 01/20/20 08:16 01/20/20 08:00 01/20/20 07:46 01/20/20 07:30 01/20/20 07:16 01/20/20 07:00 01/20/20 06:46 01/20/20 06:30 01/20/20 06:23 01/20/20 06:16 01/20/20 06:00 01/20/20 05:46 01/20/20 05:30 01/20/20 05:16 01/20/20 05:00 01/20/20 04:58 01/20/20 04:46 01/20/20 04:30 01/20/20 04:16 01/20/20 04:00 01/20/20 03:46 01/20/20 03:30 01/20/20 03:16 01/20/20 03:03 01/20/20 03:00 01/20/20 02:46 01/20/20 02:30 01/20/20 02:16 01/20/20 02:00 01/20/20 01:46 01/20/20 01:30 01/20/20 01:26 01/20/20 01:16 01/20/20 01:00 01/20/20 00:46 01/20/20 00:30 01/20/20 00:28 01/20/20 00:16 01/20/20 00:00 01/19/20 23:46 01/19/20 23:34 01/19/20 23:30 01/19/20 23:16 01/19/20 23:00 01/19/20 22:46 01/19/20 22:30 01/19/20 22:16 01/19/20 22:00 01/19/20 21:57 01/19/20 21:46 01/19/20 21:33 01/19/20 21:31 01/19/20 21:30 01/19/20 21:22 01/19/20 21:16 01/19/20 21:00 01/19/20 20:46 01/19/20 20:30 01/19/20 20:16 01/19/20 20:00 01/19/20 19:46 01/19/20 19:30 01/19/20 19:29 01/19/20 19:16 01/19/20 19:00 01/19/20 18:46 01/19/20 18:30 01/19/20 18:16 01/19/20 18:00 01/19/20 17:46 01/19/20 17:30 01/19/20 17:16 01/19/20 17:00 01/19/20 16:46 01/19/20 16:30 01/19/20 16:16 01/19/20 16:00 01/19/20 15:46 01/19/20 15:30 01/19/20 15:16 01/19/20 15:00 01/19/20 14:46 01/19/20 14:30 01/19/20 14:16 01/19/20 14:00 01/19/20 13:46 01/19/20 13:30 01/19/20 13:16 01/19/20 13:00 01/19/20 12:46 01/19/20 12:30 01/19/20 12:16 01/19/20 12:00 01/19/20 11:46 - Physical Examination General: Other (awake, s/p trach) HEENT: Positive: PERRL Cardiac: Positive: Reg Rate and Rhythm Extremities: Absent: edema - Labs and Meds CBC 01/20/20 Range/Units 05:20 WBC 9.0 (4.5-11.0) K/mm3 RBC 3.65 (3.65-5.03) M/mm3 Hgb 9.2 L (11.8-15.2) gm/dl Hct 29.4 L (35.5-45.6) % Plt Count 288 (140-440) K/mm3 Comprehensive Metabolic Panel 01/20/20 Range/Units 05:40 Sodium 140 (137-145) mmol/L Potassium 4.2 (3.6-5.0) mmol/L Chloride 99.7 (98-107) mmol/L Carbon Dioxide 32 H (22-30) mmol/L BUN 22 H (9-20) mg/dL Creatinine 0.7 L (0.8-1.3) mg/dL Glucose 128 H (75-100) mg/dL Calcium 9.5 (8.4-10.2) mg/dL - Allied health notes Allied health notes reviewed: nursing
[2020-01-20] MEDS ORDERED: HEPARIN/ 0.45% NACL DRIP 25,000 UNIT/500 ML BAG IV SCH (14:00)
[2020-01-20] MEDS ORDERED: CLOPIDOGREL 300 MG TAB PO ONE (14:00)
[2020-01-20] MEDS ORDERED: SODIUM CHLORIDE 0.9% 500 ML 500 ML IV SCH (14:00)
[2020-01-20] MEDS ORDERED: HEPARIN 10,000 UNITS/10 ML VIAL IV ONE (14:00)
[2020-01-20] MEDS: ASPIRIN 81 MG TAB CHEW PO SCH (14:12)
[2020-01-20 15:08] LABS: Hematocrit 28.3 % (35.5-45.6)
[2020-01-20 15:19] LABS: INR 1.72 (0.87-1.13); Partial Thromboplastin Time 40.6 Sec. (24.2-36.6)
[2020-01-20] MEDS: POLYETHYLENE GLYCOL 3350 17 GM POWDER PO SCH (21:52)
[2020-01-20] MEDS: TAMSULOSIN 0.4 MG CAP PO SCH (21:52)
[2020-01-20] MEDS: LORazepam 2 MG/ML VIAL IV PRN (22:07)
[2020-01-21] MEDS: METOPROLOL TARTRATE 25 MG TAB PO SCH ×6 (01:15→20:06)
[2020-01-21] MEDS: METOPROLOL TARTRATE 5 MG/5 ML INJ IV PRN (03:04)
[2020-01-21] MEDS: CLOPIDOGREL 75 MG TAB PO SCH (06:43)
[2020-01-21] MEDS: FUROSEMIDE 20 MG/2 ML INJ IV SCH ×2 (07:17→17:47)
[2020-01-21] MEDS: AMIODARONE 200 MG TAB PO SCH (07:36)
[2020-01-21] MEDS: NITROGLYCERIN 0.4 MG PATCH 24HR TD SCH (07:37)
[2020-01-21] MEDS: FAMOTIDINE 20 MG TAB PO SCH ×4 (10:30→21:45)
[2020-01-21] MEDS: GLYCOPYRROLATE 2 MG TAB PO SCH ×4 (10:30→21:45)
[2020-01-21] MEDS: QUEtiapine 100 MG TAB PO SCH ×4 (10:30→21:45)
[2020-01-21] MEDS: ASPIRIN 81 MG TAB CHEW PO SCH ×2 (10:45→14:47)
[2020-01-21] MEDS: DOCUSATE SODIUM 100 MG/10 ML ORAL LIQD FEEDTUBE SCH ×4 (10:45→21:45)
[2020-01-21] MEDS: LORazepam 2 MG/ML VIAL IV PRN (11:00)
--- NOTE | 2020-01-21 12:02 | Progress Note ---
Assessment and Plan Chest pain ECG done 01/19/20 shows sinus rhythm with low voltage QRS and subtle ST segment elevations in the inferolateral leads that suggested possible concern for an acute injury at that time. Atrial fibrillation, paroxysmal on amiodarone and metoprolol currently in sinus rhythm Ischemic Cardiomyopathy re-echo this presentation reports an LVEF 40-45%. echo 08/2018: decreased LVEF 20-25%. Hx of CAD [facility] 12/2018: mild in-stent restenosis. No significant residual disease. Multifocal pneumonia negative COVID-19 test x 3 Chronic Respiratory failure s/p trach History of COPD Acute PE/DVT -Eliquis discontinued while on IV heparin Anemia Partial SBO vs ileus Recommendations: Continue medical therapy for his coronary artery disease including aspirin and Plavix, atorvastatin and metoprolol. Continue topical nitrates and intravenous heparin for management of recurrent ischemia. We will proceed with diagnostic coronary angiography, for further assessment of his coronary artery disease. Subjective Date of service: 01/21/20 Principal diagnosis: Ac hypoxemic resp failure; Pneumonia; PUI COVID-19; CHF; COPD; HTN Interval history: Planned cardiac cath has been postponed. Patient is currently chest pain free. Objective Vital Signs Temp Pulse Pulse Resp Resp BP Pulse Ox 01/21/20 10:57 105 H 96 01/21/20 08:13 01/21/20 08:11 100 H 96 01/21/20 08:08 16 01/21/20 07:37 98 H 106/81 01/21/20 07:30 100 H 27 H 105/84 97 01/21/20 07:16 106 H 29 H 105/84 98 01/21/20 07:00 104 H 28 H 106/81 94 01/21/20 06:46 102 H 19 105/84 98 01/21/20 06:30 102 H 29 H 100/80 98 01/21/20 06:16 104 H 20 100/80 98 01/21/20 06:00 104 H 29 H 100/80 95 01/21/20 05:46 106 H 30 H 101/77 97 01/21/20 05:30 103 H 29 H 122/93 98 01/21/20 05:16 97 H 18 95/69 99 01/21/20 05:08 97 H 8 L 98 01/21/20 05:00 112 H 23 88/66 97 01/21/20 04:46 119 H 23 98 10/29/20 04:30 132 H 19 97/67 94 01/21/20 04:16 128 H 20 93 01/21/20 04:00 98.9 F 137 H 107 H 22 97/67 98 01/21/20 03:46 132 H 26 H 102/79 99 01/21/20 03:30 135 H 23 102/79 100 01/21/20 03:16 120 H 22 102/79 97 01/21/20 03:04 139 H 102/79 01/21/20 03:00 127 H 22 102/79 100 01/21/20 02:46 127 H 26 H 91/66 94 01/21/20 02:30 138 H 15 91/66 01/21/20 02:16 108 H 15 91/66 100 01/21/20 02:00 93 H 21 87/55 96 01/21/20 01:46 104 H 25 H 101/78 98 01/21/20 01:30 119 H 24 101/78 97 01/21/20 01:16 117 H 19 101/78 98 01/21/20 01:15 135 H 101/78 01/21/20 01:00 141 H 18 90/54 95 01/21/20 00:46 124 H 17 90/54 97 01/21/20 00:30 103 H 19 90/54 98 01/21/20 00:16 95 H 15 90/54 97 01/21/20 00:00 98.8 F 98 H 130 H 20 90/54 98 01/20/20 23:46 96 H 19 112/74 97 01/20/20 23:30 105 H 17 112/74 96 01/20/20 23:16 117 H 19 112/74 96 01/20/20 23:00 125 H 19 112/74 96 01/20/20 22:46 102 H 20 102/77 98 01/20/20 22:30 105 H 22 102/77 96 01/20/20 22:16 103 H 24 102/77 98 01/20/20 22:00 101 H 21 102/77 98 01/20/20 21:51 22 01/20/20 21:46 101 H 17 132/78 99 01/20/20 21:30 128 H 23 132/78 99 01/20/20 21:21 25 H 01/20/20 21:16 123 H 25 H 105/77 97 01/20/20 21:00 116 H 26 H 105/77 99 01/20/20 20:46 115 H 19 105/77 100 01/20/20 20:30 108 H 19 105/77 99 01/20/20 20:16 130 H 27 H 105/77 97 01/20/20 20:05 138 H 105/77 01/20/20 20:00 98.6 F 120 H 125 H 21 25 H 105/77 96 01/20/20 19:46 125 H 21 91/70 99 01/20/20 19:30 132 H 28 H 91/70 100 01/20/20 19:16 124 H 27 H 91/70 99 01/20/20 19:00 112 H 23 91/70 98 01/20/20 18:46 104 H 23 98/66 98 01/20/20 18:30 117 H 19 98/66 99 01/20/20 18:16 116 H 22 98/66 99 01/20/20 18:00 111 H 19 98/66 98 01/20/20 17:46 120 H 19 92/68 97 01/20/20 17:30 91 H 22 92/68 98 01/20/20 17:16 93 H 22 92/68 97 01/20/20 17:00 95 H 23 92/68 97 01/20/20 16:52 96 H 24 102/73 94 01/20/20 16:46 98 H 28 H 102/73 98 01/20/20 16:30 97 H 18 102/73 97 01/20/20 16:16 96 H 23 102/73 96 01/20/20 16:00 98 F 97 H 18 102/73 99 01/20/20 15:46 95 H 20 101/68 99 01/20/20 15:30 96 H 17 101/68 96 01/20/20 15:16 94 H 19 101/68 98 01/20/20 15:00 97 H 17 101/68 97 01/20/20 14:46 96 H 20 100/78 98 01/20/20 14:30 98 H 18 100/78 98 01/20/20 14:16 101 H 21 100/78 98 01/20/20 14:13 102 H 101/78 01/20/20 14:10 01/20/20 14:05 105 H 27 H 100/78 98 01/20/20 14:00 98.5 F 102 H 16 100/78 81 L 01/20/20 13:46 106 H 31 H 117/83 85 01/20/20 13:30 106 H 30 H 117/83 88 01/20/20 13:16 103 H 29 H 117/83 90 01/20/20 13:00 100 H 22 117/83 95 01/20/20 12:46 100 H 19 116/83 93 01/20/20 12:40 100 H 116/83 94 01/20/20 12:30 104 H 18 116/83 95 01/20/20 12:16 102 H 30 H 116/83 94 01/20/20 12:00 98.1 F 106 H 13 116/83 Pulse Ox 01/21/20 10:57 01/21/20 08:13 96 01/21/20 08:11 01/21/20 08:08 01/21/20 07:37 01/21/20 07:30 01/21/20 07:16 01/21/20 07:00 01/21/20 06:46 01/21/20 06:30 01/21/20 06:16 01/21/20 06:00 01/21/20 05:46 01/21/20 05:30 01/21/20 05:16 01/21/20 05:08 01/21/20 05:00 01/21/20 04:46 01/21/20 04:30 01/21/20 04:16 01/21/20 04:00 01/21/20 03:46 01/21/20 03:30 01/21/20 03:16 01/21/20 03:04 01/21/20 03:00 01/21/20 02:46 01/21/20 02:30 01/21/20 02:16 01/21/20 02:00 01/21/20 01:46 01/21/20 01:30 01/21/20 01:16 01/21/20 01:15 01/21/20 01:00 01/21/20 00:46 01/21/20 00:30 01/21/20 00:16 01/21/20 00:00 98 01/20/20 23:46 01/20/20 23:30 01/20/20 23:16 01/20/20 23:00 01/20/20 22:46 01/20/20 22:30 01/20/20 22:16 01/20/20 22:00 01/20/20 21:51 01/20/20 21:46 01/20/20 21:30 01/20/20 21:21 01/20/20 21:16 01/20/20 21:00 01/20/20 20:46 01/20/20 20:30 01/20/20 20:16 01/20/20 20:05 01/20/20 20:00 01/20/20 19:46 01/20/20 19:30 01/20/20 19:16 01/20/20 19:00 01/20/20 18:46 01/20/20 18:30 01/20/20 18:16 01/20/20 18:00 01/20/20 17:46 01/20/20 17:30 01/20/20 17:16 01/20/20 17:00 01/20/20 16:52 01/20/20 16:46 01/20/20 16:30 01/20/20 16:16 01/20/20 16:00 01/20/20 15:46 01/20/20 15:30 01/20/20 15:16 01/20/20 15:00 01/20/20 14:46 01/20/20 14:30 01/20/20 14:16 01/20/20 14:13 01/20/20 14:10 97 01/20/20 14:05 01/20/20 14:00 01/20/20 13:46 01/20/20 13:30 01/20/20 13:16 01/20/20 13:00 01/20/20 12:46 01/20/20 12:40 01/20/20 12:30 01/20/20 12:16 01/20/20 12:00 - Physical Examination General: Other (awake, s/p trach) HEENT: Positive: PERRL Cardiac: Positive: Reg Rate and Rhythm Extremities: Absent: edema - Labs and Meds Coagulation 01/20/20 Range/Units 14:55 PT 20.4 H (12.2-14.9) Sec. INR 1.72 H (0.87-1.13) APTT 40.6 H (24.2-36.6) Sec. CBC 01/20/20 Range/Units 14:55 Hgb 9.0 L (11.8-15.2) gm/dl Hct 28.3 L (35.5-45.6) % Plt Count 276 (140-440) K/mm3 - Allied health notes Allied health notes reviewed: nursing
[2020-01-21] MEDS: MORPHINE 2 MG/1 ML INJ IV PRN ×2 (13:00→17:46)
--- NOTE | 2020-01-21 14:04 | Progress Note ---
Assessment and Plan Acute hypoxemic respiratory failure s/p trach on MVS Bilateral pneumonia, community acquired. Acute congestive heart failure exacerbation. History of cerebrovascular accident. Acute chronic obstructive pulmonary disease exacerbation. Hypertension and hypertensive urgency at presentation. History of arthritis. Oropharyngeal dysphagia Right Lext DVT Pulmonary embolism Trach care, airway clearance, secretion management SATs and SBTs daily. Replete potassium, keep at 4, magnesium at 2 and Phos at 2.5 Conitnue with Furosemide while montoring renal function, electrolyte profile and hemodynamics On Apixaban Monitor closely CXR, ABG as clinically indicated Continue accuchecks with glycemic control per SSI for target blood glucose goal of 140-180 mg/dL while critically ill; Avoid hypoglycemia Plan for cardiac cath today - continue to monitor renal function, hemodynamics and electrolyte profile - continue to wean oxygen for O2 sats > 90% - continue bronchodilators with pulmonary hygiene per RT - VAP bundle addressed (Aspiration precautions, HOB >40) - continue to wean per pulmonary driven protocols - continue prn analgesia per CPOT score - follow clinically re: fever curves / trend WBC - Avoid delirium (no benzodiazepines if they can be avoided) - continue stress ulcer prophylaxis with Famotidine BID - continue mobility protocols for pressure ulcer prophylaxis - continue fall precautions - Supportive transfusions as indicated to keep HgB>7g/dL - Continue to monitor neurologic function - Continue chronic home medications as clinically indicated - Continue all supportive care CONDITION: CRITICAL PROGNOSIS: GUARDED CODE STATUS: FULL CODE The high probability of a clinically significant, sudden or life threatening deterioration of the [Respiratory, cardiovascular, GI & neurological] system(s) required my full and direct attention, intervention and personal management. The aggregate critical care time was [32] minutes without overlap. Time includes spent on [x] Data Review and interpretation [x] Patient assessment and monitoring of vital signs [x] Documentation [x] Medication orders and management Subjective Date of service: 01/21/20 Principal diagnosis: Ac hypoxemic resp failure; Pneumonia; PUI COVID-19; CHF; COPD; HTN Interval history: Patient is seen today for: Acute hypoxemic respiratory failure; Adan. Pneumonia (CAP); PUI COVID-19 infection; AE-CHF; AE-COPD; H/O CVA; HTN; PE, DVT Seen and examined at bedside; 24 hour events reviewed; nursing and respiratory care staff consulted; no adverse overnight events reported to me; resting peacefully in bed; s/p trach on full support, awake and alert with some episodes of agitation., tolerating tube feedings. On Seroquel, received Vent AC-VC 12/450/+6/30% No fevers, anticoagulated on Apixaban Objective Vital Signs - 12hr 01/21/20 01/21/20 01/21/20 02:16 02:30 02:46 Temperature Pulse Rate 108 H 138 H 127 H Pulse Rate [ From Monitor] Respiratory 15 15 26 H Rate Blood Pressure 91/66 91/66 91/66 O2 Sat by Pulse 100 94 Oximetry O2 Sat by Pulse Oximetry [ Assessment] 01/21/20 01/21/20 01/21/20 03:00 03:04 03:16 Temperature Pulse Rate 127 H 139 H 120 H Pulse Rate [ From Monitor] Respiratory 22 22 Rate Blood Pressure 102/79 102/79 102/79 O2 Sat by Pulse 100 97 Oximetry O2 Sat by Pulse Oximetry [ Assessment] 01/21/20 01/21/20 01/21/20 03:30 03:46 04:00 Temperature 98.9 F Pulse Rate 135 H 132 H 137 H Pulse Rate [ 107 H From Monitor] Respiratory 23 26 H 22 Rate Blood Pressure 102/79 102/79 97/67 O2 Sat by Pulse 100 99 98 Oximetry O2 Sat by Pulse Oximetry [ Assessment] 01/21/20 01/21/20 01/21/20 04:16 04:30 04:46 Temperature Pulse Rate 128 H 132 H 119 H Pulse Rate [ From Monitor] Respiratory 20 19 23 Rate Blood Pressure 97/67 O2 Sat by Pulse 93 94 98 Oximetry O2 Sat by Pulse Oximetry [ Assessment] 01/21/20 01/21/20 01/21/20 05:00 05:08 05:16 Temperature Pulse Rate 112 H 97 H 97 H Pulse Rate [ From Monitor] Respiratory 23 8 L 18 Rate Blood Pressure 88/66 95/69 O2 Sat by Pulse 97 98 99 Oximetry O2 Sat by Pulse Oximetry [ Assessment] 01/21/20 01/21/20 01/21/20 05:30 05:46 06:00 Temperature Pulse Rate 103 H 106 H 104 H Pulse Rate [ From Monitor] Respiratory 29 H 30 H 29 H Rate Blood Pressure 122/93 101/77 100/80 O2 Sat by Pulse 98 97 95 Oximetry O2 Sat by Pulse Oximetry [ Assessment] 01/21/20 01/21/20 01/21/20 06:16 06:30 06:46 Temperature Pulse Rate 104 H 102 H 102 H Pulse Rate [ From Monitor] Respiratory 20 29 H 19 Rate Blood Pressure 100/80 100/80 105/84 O2 Sat by Pulse 98 98 98 Oximetry O2 Sat by Pulse Oximetry [ Assessment] 01/21/20 01/21/20 01/21/20 07:00 07:16 07:30 Temperature Pulse Rate 104 H 106 H 100 H Pulse Rate [ From Monitor] Respiratory 28 H 29 H 27 H Rate Blood Pressure 106/81 105/84 105/84 O2 Sat by Pulse 94 98 97 Oximetry O2 Sat by Pulse Oximetry [ Assessment] 01/21/20 01/21/20 01/21/20 07:37 07:46 08:00 Temperature Pulse Rate 98 H 99 H 100 H Pulse Rate [ From Monitor] Respiratory 28 H 19 Rate Blood Pressure 106/81 105/84 109/77 O2 Sat by Pulse 98 98 Oximetry O2 Sat by Pulse Oximetry [ Assessment] 01/21/20 01/21/20 01/21/20 08:08 08:11 08:13 Temperature Pulse Rate 100 H Pulse Rate [ From Monitor] Respiratory 16 Rate Blood Pressure O2 Sat by Pulse 96 Oximetry O2 Sat by Pulse 96 Oximetry [ Assessment] 01/21/20 01/21/20 01/21/20 08:16 08:30 08:46 Temperature Pulse Rate 103 H 103 H 100 H Pulse Rate [ From Monitor] Respiratory 26 H 26 H 28 H Rate Blood Pressure 109/77 109/77 109/77 O2 Sat by Pulse 95 94 97 Oximetry O2 Sat by Pulse Oximetry [ Assessment] 01/21/20 01/21/20 01/21/20 09:00 09:16 09:30 Temperature Pulse Rate 96 H 91 H 123 H Pulse Rate [ From Monitor] Respiratory 25 H 25 H 26 H Rate Blood Pressure 105/67 105/67 105/67 O2 Sat by Pulse 96 97 96 Oximetry O2 Sat by Pulse Oximetry [ Assessment] 01/21/20 01/21/20 01/21/20 09:46 10:00 10:16 Temperature Pulse Rate 128 H 113 H 119 H Pulse Rate [ From Monitor] Respiratory 27 H 25 H 26 H Rate Blood Pressure 105/67 93/69 93/69 O2 Sat by Pulse 95 96 96 Oximetry O2 Sat by Pulse Oximetry [ Assessment] 01/21/20 01/21/20 01/21/20 10:30 10:45 10:46 Temperature Pulse Rate 122 H 109 H 115 H Pulse Rate [ From Monitor] Respiratory 26 H 22 Rate Blood Pressure 93/69 99/69 93/69 O2 Sat by Pulse 96 97 Oximetry O2 Sat by Pulse Oximetry [ Assessment] 01/21/20 01/21/20 01/21/20 10:57 11:00 11:16 Temperature Pulse Rate 105 H 110 H 118 H Pulse Rate [ From Monitor] Respiratory 23 24 Rate Blood Pressure 99/69 99/69 O2 Sat by Pulse 96 97 98 Oximetry O2 Sat by Pulse Oximetry [ Assessment] 01/21/20 01/21/20 01/21/20 11:30 11:46 12:00 Temperature Pulse Rate 109 H 115 H 114 H Pulse Rate [ From Monitor] Respiratory 21 24 28 H Rate Blood Pressure 99/69 99/69 99/69 O2 Sat by Pulse 95 95 95 Oximetry O2 Sat by Pulse Oximetry [ Assessment] 01/21/20 01/21/20 01/21/20 12:16 12:30 12:46 Temperature Pulse Rate 104 H 109 H 106 H Pulse Rate [ From Monitor] Respiratory 26 H 17 28 H Rate Blood Pressure 101/52 101/52 101/52 O2 Sat by Pulse 96 98 97 Oximetry O2 Sat by Pulse Oximetry [ Assessment] 01/21/20 01/21/20 13:00 13:16 Temperature Pulse Rate 106 H 115 H Pulse Rate [ From Monitor] Respiratory 25 H 15 Rate Blood Pressure 85/53 97/49 O2 Sat by Pulse 95 98 Oximetry O2 Sat by Pulse Oximetry [ Assessment] Constitutional: no acute distress, other (elelelderly and obese male, normocephalic with mildly increased respiratory effort at rest on MVS) Eyes: non-icteric ENT: other (trach to MVS, mooderate tracheal secretions) Neck: supple, no JVD Effort: mildly labored Ascultation: Bilateral: clear, diminished breath sounds, rhonchi, other (+ secretions) Percussion: Bilateral: not dull Cardiovascular: irregular rhythm, other (S1,S2) Gastrointestinal: normoactive bowel sounds, soft, non-tender, non-distended (protuberant), other (protuberant; PEG in place) Integumentary: normal Extremities: no cyanosis, pulses normal, no ischemia or petechiae, edema (bilateral upper ) Neurologic: non-focal exam (moves extremities), pupils equal and round, CN II- XII normal, motor strength normal and (moves all extremities) Psychiatric: anxious CBC and BMP: 01/22/20 04:45 01/22/20 08:09 ABG, PT/INR, D-dimer: ABG ABG pH 7.449 pH Units (7.350-7.450) 01/13/20 20:40 POC ABG pCO2 45.6 mmHg (32.0-48.0) 01/12/20 13:58 ABG pCO2 46.9 mm Hg 01/13/20 20:40 POC ABG pO2 76.6 mmHg (83-108) L 01/12/20 13:58 ABG pO2 65.3 mm Hg (80.0-90.0) L 01/13/20 20:40 POC ABG HCO3 31.2 01/12/20 13:58 ABG O2 Saturation 93.5 % (95.0-99.0) L 01/13/20 20:40 PT/INR, D-dimer PT 20.4 Sec. (12.2-14.9) H 01/20/20 14:55 INR 1.72 (0.87-1.13) H 01/20/20 14:55 Abnormal lab findings: Abnormal Labs 11/24/19 11/24/19 11/24/19 02:53 02:53 03:45 WBC 14.3 H RBC Hgb Hct MCHC RDW 17.2 H MCV MCH Lymph % (Auto) [place] % (Auto) [place] # Eos # Lymph # (Auto) [place] # (Auto) Eos # (Auto) Seg Neutrophils % Seg Neuts % (Manual) Baso # (Auto) Lymphocytes % (Manual) Monocytes % (Manual) Eosinophils % (Manual) Basophils % (Manual) Seg Neutrophils # Seg Neutrophils # Man 8.3 H Lymphocytes # (Manual) Monocytes # (Manual) 0.9 H Eosinophils # (Manual) Nucleated RBC % Basophils # (Manual) PT INR APTT Heparin Anti-Xa Level ABG pH 7.313 L POC ABG pO2 ABG pO2 102.8 H ABG HCO3 ABG O2 Saturation ABG Base Excess -2.9 L POC ABG pCO2 ABG Hemoglobin ABG Oxyhemoglobin ABG Glucose Oxyhemoglobin 93.9 L Sodium Potassium Chloride Carbon Dioxide BUN Creatinine Glucose 195 H POC Glucose Lactic Acid Calcium Phosphorus Magnesium AST ALT Lactate Dehydrogenase CK-MB (CK-2) 4.3 H C-Reactive Protein NT-Pro-B Natriuret Pep 1181 H Total Protein Albumin Arterial Blood Glucose Urine WBC (Auto) 11/24/19 11/24/19 11/24/19 04:53 04:53 10:37 WBC RBC Hgb Hct MCHC RDW MCV MCH Lymph % (Auto) [place] % (Auto) [place] # Eos # Lymph # (Auto) [place] # (Auto) Eos # (Auto) Seg Neutrophils % Seg Neuts % (Manual) Baso # (Auto) Lymphocytes % (Manual) Monocytes % (Manual) Eosinophils % (Manual) Basophils % (Manual) Seg Neutrophils # Seg Neutrophils # Man Lymphocytes # (Manual) Monocytes # (Manual) Eosinophils # (Manual) Nucleated RBC % Basophils # (Manual) PT INR APTT Heparin Anti-Xa Level ABG pH POC ABG pO2 ABG pO2 ABG HCO3 ABG O2 Saturation ABG Base Excess POC ABG pCO2 ABG Hemoglobin ABG Oxyhemoglobin ABG Glucose Oxyhemoglobin Sodium Potassium Chloride Carbon Dioxide BUN Creatinine Glucose 162 H POC Glucose Lactic Acid 2.40 H* 2.50 H* Calcium Phosphorus Magnesium AST ALT Lactate Dehydrogenase 240 H CK-MB (CK-2) C-Reactive Protein NT-Pro-B Natriuret Pep Total Protein Albumin Arterial Blood Glucose Urine WBC (Auto) 11/24/19 11/24/19 11/24/19 12:21 14:50 19:54 WBC RBC Hgb Hct MCHC RDW MCV MCH Lymph % (Auto) [place] % (Auto) [place] # Eos # Lymph # (Auto) [place] # (Auto) Eos # (Auto) Seg Neutrophils % Seg Neuts % (Manual) Baso # (Auto) Lymphocytes % (Manual) Monocytes % (Manual) Eosinophils % (Manual) Basophils % (Manual) Seg Neutrophils # Seg Neutrophils # Man Lymphocytes # (Manual) Monocytes # (Manual) Eosinophils # (Manual) Nucleated RBC % Basophils # (Manual) PT INR APTT Heparin Anti-Xa Level ABG pH POC ABG pO2 ABG pO2 ABG HCO3 ABG O2 Saturation ABG Base Excess POC ABG pCO2 ABG Hemoglobin ABG Oxyhemoglobin ABG Glucose Oxyhemoglobin Sodium Potassium Chloride Carbon Dioxide BUN Creatinine Glucose POC Glucose 145 H 143 H 124 H Lactic Acid Calcium Phosphorus Magnesium AST ALT Lactate Dehydrogenase CK-MB (CK-2) C-Reactive Protein NT-Pro-B Natriuret Pep Total Protein Albumin Arterial Blood Glucose Urine WBC (Auto) 11/25/19 11/25/19 11/25/19 00:18 03:18 05:11 WBC 13.7 H RBC Hgb Hct MCHC RDW 17.1 H MCV MCH Lymph % (Auto) 10.8 L [place] % (Auto) 8.7 H [place] # 1.2 H Eos # Lymph # (Auto) [place] # (Auto) Eos # (Auto) Seg Neutrophils % 80.2 H Seg Neuts % (Manual) Baso # (Auto) Lymphocytes % (Manual) Monocytes % (Manual) Eosinophils % (Manual) Basophils % (Manual) Seg Neutrophils # 11.0 H Seg Neutrophils # Man Lymphocytes # (Manual) Monocytes # (Manual) Eosinophils # (Manual) Nucleated RBC % Basophils # (Manual) PT INR APTT Heparin Anti-Xa Level ABG pH 7.333 L POC ABG pO2 ABG pO2 61.2 L ABG HCO3 ABG O2 Saturation 90.2 L ABG Base Excess POC ABG pCO2 ABG Hemoglobin 13.7 L ABG Oxyhemoglobin ABG Glucose Oxyhemoglobin 88.2 L Sodium Potassium Chloride Carbon Dioxide BUN Creatinine Glucose POC Glucose 109 H Lactic Acid Calcium Phosphorus Magnesium AST ALT Lactate Dehydrogenase CK-MB (CK-2) C-Reactive Protein NT-Pro-B Natriuret Pep Total Protein Albumin Arterial Blood Glucose Urine WBC (Auto) 11/25/19 11/25/19 11/26/19 05:11 11:40 03:12 WBC RBC Hgb Hct MCHC RDW MCV MCH Lymph % (Auto) [place] % (Auto) [place] # Eos # Lymph # (Auto) [place] # (Auto) Eos # (Auto) Seg Neutrophils % Seg Neuts % (Manual) Baso # (Auto) Lymphocytes % (Manual) Monocytes % (Manual) Eosinophils % (Manual) Basophils % (Manual) Seg Neutrophils # Seg Neutrophils # Man Lymphocytes # (Manual) Monocytes # (Manual) Eosinophils # (Manual) Nucleated RBC % Basophils # (Manual) PT INR APTT Heparin Anti-Xa Level ABG pH POC ABG pO2 ABG pO2 155.1 H ABG HCO3 27.8 H ABG O2 Saturation ABG Base Excess POC ABG pCO2 ABG Hemoglobin 12.2 L ABG Oxyhemoglobin ABG Glucose Oxyhemoglobin Sodium Potassium Chloride Carbon Dioxide BUN 23 H Creatinine Glucose 110 H POC Glucose 108 H Lactic Acid Calcium Phosphorus Magnesium AST ALT Lactate Dehydrogenase CK-MB (CK-2) C-Reactive Protein NT-Pro-B Natriuret Pep Total Protein Albumin Arterial Blood Glucose Urine WBC (Auto) 11/26/19 11/26/19 11/26/19 06:17 10:43 10:43 WBC 11.4 H RBC Hgb Hct MCHC RDW 17.1 H MCV MCH Lymph % (Auto) [place] % (Auto) [place] # Eos # Lymph # (Auto) [place] # (Auto) Eos # (Auto) Seg Neutrophils % Seg Neuts % (Manual) Baso # (Auto) Lymphocytes % (Manual) Monocytes % (Manual) Eosinophils % (Manual) Basophils % (Manual) Seg Neutrophils # Seg Neutrophils # Man Lymphocytes # (Manual) Monocytes # (Manual) Eosinophils # (Manual) Nucleated RBC % Basophils # (Manual) PT INR APTT Heparin Anti-Xa Level ABG pH POC ABG pO2 ABG pO2 ABG HCO3 ABG O2 Saturation ABG Base Excess POC ABG pCO2 ABG Hemoglobin ABG Oxyhemoglobin ABG Glucose Oxyhemoglobin Sodium Potassium Chloride Carbon Dioxide BUN 29 H Creatinine Glucose POC Glucose 107 H Lactic Acid Calcium Phosphorus Magnesium AST ALT Lactate Dehydrogenase CK-MB (CK-2) C-Reactive Protein NT-Pro-B Natriuret Pep Total Protein Albumin Arterial Blood Glucose Urine WBC (Auto) 11/26/19 11/27/19 11/27/19 17:11 01:53 04:11 WBC RBC Hgb Hct MCHC RDW MCV MCH Lymph % (Auto) [place] % (Auto) [place] # Eos # Lymph # (Auto) [place] # (Auto) Eos # (Auto) Seg Neutrophils % Seg Neuts % (Manual) Baso # (Auto) Lymphocytes % (Manual) Monocytes % (Manual) Eosinophils % (Manual) Basophils % (Manual) Seg Neutrophils # Seg Neutrophils # Man Lymphocytes # (Manual) Monocytes # (Manual) Eosinophils # (Manual) Nucleated RBC % Basophils # (Manual) PT INR APTT Heparin Anti-Xa Level ABG pH POC ABG pO2 ABG pO2 ABG HCO3 29.2 H ABG O2 Saturation ABG Base Excess 3.4 H POC ABG pCO2 ABG Hemoglobin 13.3 L ABG Oxyhemoglobin ABG Glucose Oxyhemoglobin 94.5 L Sodium Potassium Chloride Carbon Dioxide BUN Creatinine Glucose POC Glucose 113 H 108 H Lactic Acid Calcium Phosphorus Magnesium AST ALT Lactate Dehydrogenase CK-MB (CK-2) C-Reactive Protein NT-Pro-B Natriuret Pep Total Protein Albumin Arterial Blood Glucose Urine WBC (Auto) 11/27/19 11/28/19 11/28/19 05:27 05:00 05:25 WBC RBC Hgb Hct MCHC RDW MCV MCH Lymph % (Auto) [place] % (Auto) [place] # Eos # Lymph # (Auto) [place] # (Auto) Eos # (Auto) Seg Neutrophils % Seg Neuts % (Manual) Baso # (Auto) Lymphocytes % (Manual) Monocytes % (Manual) Eosinophils % (Manual) Basophils % (Manual) Seg Neutrophils # Seg Neutrophils # Man Lymphocytes # (Manual) Monocytes # (Manual) Eosinophils # (Manual) Nucleated RBC % Basophils # (Manual) PT INR APTT Heparin Anti-Xa Level ABG pH POC ABG pO2 68.1 L ABG pO2 ABG HCO3 ABG O2 Saturation ABG Base Excess POC ABG pCO2 ABG Hemoglobin ABG Oxyhemoglobin 91.2 L ABG Glucose Oxyhemoglobin Sodium Potassium Chloride Carbon Dioxide BUN Creatinine Glucose POC Glucose 111 H 110 H Lactic Acid Calcium Phosphorus Magnesium AST ALT Lactate Dehydrogenase CK-MB (CK-2) C-Reactive Protein NT-Pro-B Natriuret Pep Total Protein Albumin Arterial Blood Glucose Urine WBC (Auto) 11/28/19 11/28/19 11/28/19 12:08 13:47 13:47 WBC 11.3 H RBC Hgb Hct MCHC RDW 16.1 H MCV MCH Lymph % (Auto) [place] % (Auto) 9.9 H [place] # 1.1 H Eos # Lymph # (Auto) [place] # (Auto) Eos # (Auto) Seg Neutrophils % 71.4 H Seg Neuts % (Manual) Baso # (Auto) Lymphocytes % (Manual) Monocytes % (Manual) Eosinophils % (Manual) Basophils % (Manual) Seg Neutrophils # 8.1 H Seg Neutrophils # Man Lymphocytes # (Manual) Monocytes # (Manual) Eosinophils # (Manual) Nucleated RBC % Basophils # (Manual) PT INR APTT Heparin Anti-Xa Level ABG pH POC ABG pO2 ABG pO2 ABG HCO3 ABG O2 Saturation ABG Base Excess POC ABG pCO2 ABG Hemoglobin ABG Oxyhemoglobin ABG Glucose Oxyhemoglobin Sodium Potassium Chloride Carbon Dioxide BUN 23 H Creatinine Glucose 123 H POC Glucose 112 H Lactic Acid Calcium Phosphorus Magnesium AST ALT Lactate Dehydrogenase CK-MB (CK-2) C-Reactive Protein NT-Pro-B Natriuret Pep Total Protein Albumin 3.7 L Arterial Blood Glucose Urine WBC (Auto) 11/28/19 11/29/19 11/29/19 17:26 03:55 17:04 WBC RBC Hgb Hct MCHC RDW MCV MCH Lymph % (Auto) [place] % (Auto) [place] # Eos # Lymph # (Auto) [place] # (Auto) Eos # (Auto) Seg Neutrophils % Seg Neuts % (Manual) Baso # (Auto) Lymphocytes % (Manual) Monocytes % (Manual) Eosinophils % (Manual) Basophils % (Manual) Seg Neutrophils # Seg Neutrophils # Man Lymphocytes # (Manual) Monocytes # (Manual) Eosinophils # (Manual) Nucleated RBC % Basophils # (Manual) PT INR APTT Heparin Anti-Xa Level ABG pH POC ABG pO2 ABG pO2 65.7 L ABG HCO3 28.3 H ABG O2 Saturation 93.9 L ABG Base Excess 3.6 H POC ABG pCO2 ABG Hemoglobin 13.3 L ABG Oxyhemoglobin ABG Glucose Oxyhemoglobin 91.5 L Sodium Potassium Chloride Carbon Dioxide BUN Creatinine Glucose POC Glucose 123 H 119 H Lactic Acid Calcium Phosphorus Magnesium AST ALT Lactate Dehydrogenase CK-MB (CK-2) C-Reactive Protein NT-Pro-B Natriuret Pep Total Protein Albumin Arterial Blood Glucose Urine WBC (Auto) 11/30/19 11/30/19 11/30/19 04:17 04:17 04:56 WBC 13.4 H RBC Hgb Hct MCHC RDW 15.6 H MCV MCH Lymph % (Auto) [place] % (Auto) [place] # Eos # Lymph # (Auto) [place] # (Auto) Eos # (Auto) Seg Neutrophils % Seg Neuts % (Manual) Baso # (Auto) Lymphocytes % (Manual) Monocytes % (Manual) Eosinophils % (Manual) Basophils % (Manual) Seg Neutrophils # Seg Neutrophils # Man Lymphocytes # (Manual) Monocytes # (Manual) Eosinophils # (Manual) Nucleated RBC % Basophils # (Manual) PT INR APTT Heparin Anti-Xa Level ABG pH POC ABG pO2 ABG pO2 56.3 L ABG HCO3 29.3 H ABG O2 Saturation 91.5 L ABG Base Excess 4.7 H POC ABG pCO2 ABG Hemoglobin 12.1 L ABG Oxyhemoglobin ABG Glucose Oxyhemoglobin 89.2 L Sodium 147 H Potassium Chloride Carbon Dioxide BUN 30 H Creatinine Glucose 124 H POC Glucose Lactic Acid Calcium Phosphorus Magnesium AST ALT Lactate Dehydrogenase CK-MB (CK-2) C-Reactive Protein NT-Pro-B Natriuret Pep Total Protein Albumin 3.8 L Arterial Blood Glucose Urine WBC (Auto) 11/30/19 11/30/19 11/30/19 05:51 11:54 18:17 WBC RBC Hgb Hct MCHC RDW MCV MCH Lymph % (Auto) [place] % (Auto) [place] # Eos # Lymph # (Auto) [place] # (Auto) Eos # (Auto) Seg Neutrophils % Seg Neuts % (Manual) Baso # (Auto) Lymphocytes % (Manual) Monocytes % (Manual) Eosinophils % (Manual) Basophils % (Manual) Seg Neutrophils # Seg Neutrophils # Man Lymphocytes # (Manual) Monocytes # (Manual) Eosinophils # (Manual) Nucleated RBC % Basophils # (Manual) PT INR APTT Heparin Anti-Xa Level ABG pH POC ABG pO2 ABG pO2 ABG HCO3 ABG O2 Saturation ABG Base Excess POC ABG pCO2 ABG Hemoglobin ABG Oxyhemoglobin ABG Glucose Oxyhemoglobin Sodium Potassium Chloride Carbon Dioxide BUN Creatinine Glucose POC Glucose 127 H 115 H 143 H Lactic Acid Calcium Phosphorus Magnesium AST ALT Lactate Dehydrogenase CK-MB (CK-2) C-Reactive Protein NT-Pro-B Natriuret Pep Total Protein Albumin Arterial Blood Glucose Urine WBC (Auto) 12/01/19 12/01/19 12/01/19 01:18 05:22 12:16 WBC RBC Hgb Hct MCHC RDW MCV MCH Lymph % (Auto) [place] % (Auto) [place] # Eos # Lymph # (Auto) [place] # (Auto) Eos # (Auto) Seg Neutrophils % Seg Neuts % (Manual) Baso # (Auto) Lymphocytes % (Manual) Monocytes % (Manual) Eosinophils % (Manual) Basophils % (Manual) Seg Neutrophils # Seg Neutrophils # Man Lymphocytes # (Manual) Monocytes # (Manual) Eosinophils # (Manual) Nucleated RBC % Basophils # (Manual) PT INR APTT Heparin Anti-Xa Level ABG pH POC ABG pO2 ABG pO2 ABG HCO3 ABG O2 Saturation ABG Base Excess POC ABG pCO2 ABG Hemoglobin ABG Oxyhemoglobin ABG Glucose Oxyhemoglobin Sodium Potassium 3.5 L Chloride 107.8 H Carbon Dioxide BUN 37 H Creatinine Glucose 157 H POC Glucose 118 H 148 H Lactic Acid Calcium 8.2 L D Phosphorus Magnesium AST 48 H ALT 60 H Lactate Dehydrogenase 194 H CK-MB (CK-2) C-Reactive Protein 8.50 H NT-Pro-B Natriuret Pep Total Protein 5.5 L Albumin 2.8 L Arterial Blood Glucose Urine WBC (Auto) 12/01/19 12/02/19 12/02/19 18:04 00:05 05:16 WBC 11.4 H RBC Hgb Hct MCHC RDW 15.9 H MCV MCH Lymph % (Auto) [place] % (Auto) 9.9 H [place] # 1.1 H Eos # Lymph # (Auto) [place] # (Auto) Eos # (Auto) Seg Neutrophils % 70.3 H Seg Neuts % (Manual) Baso # (Auto) Lymphocytes % (Manual) Monocytes % (Manual) Eosinophils % (Manual) Basophils % (Manual) Seg Neutrophils # 8.0 H Seg Neutrophils # Man Lymphocytes # (Manual) Monocytes # (Manual) Eosinophils # (Manual) Nucleated RBC % Basophils # (Manual) PT INR APTT Heparin Anti-Xa Level ABG pH POC ABG pO2 ABG pO2 ABG HCO3 ABG O2 Saturation ABG Base Excess POC ABG pCO2 ABG Hemoglobin ABG Oxyhemoglobin ABG Glucose Oxyhemoglobin Sodium Potassium Chloride Carbon Dioxide BUN Creatinine Glucose POC Glucose 143 H 107 H Lactic Acid Calcium Phosphorus Magnesium AST ALT Lactate Dehydrogenase CK-MB (CK-2) C-Reactive Protein NT-Pro-B Natriuret Pep Total Protein Albumin Arterial Blood Glucose Urine WBC (Auto) 12/02/19 12/02/19 12/02/19 05:16 06:03 11:52 WBC RBC Hgb Hct MCHC RDW MCV MCH Lymph % (Auto) [place] % (Auto) [place] # Eos # Lymph # (Auto) [place] # (Auto) Eos # (Auto) Seg Neutrophils % Seg Neuts % (Manual) Baso # (Auto) Lymphocytes % (Manual) Monocytes % (Manual) Eosinophils % (Manual) Basophils % (Manual) Seg Neutrophils # Seg Neutrophils # Man Lymphocytes # (Manual) Monocytes # (Manual) Eosinophils # (Manual) Nucleated RBC % Basophils # (Manual) PT INR APTT Heparin Anti-Xa Level ABG pH POC ABG pO2 ABG pO2 ABG HCO3 ABG O2 Saturation ABG Base Excess POC ABG pCO2 ABG Hemoglobin ABG Oxyhemoglobin ABG Glucose Oxyhemoglobin Sodium 146 H Potassium Chloride Carbon Dioxide BUN 28 H Creatinine Glucose 123 H POC Glucose 110 H 152 H Lactic Acid Calcium Phosphorus Magnesium AST ALT Lactate Dehydrogenase CK-MB (CK-2) C-Reactive Protein NT-Pro-B Natriuret Pep Total Protein Albumin Arterial Blood Glucose Urine WBC (Auto) 12/02/19 12/02/19 12/02/19 12:58 17:58 23:36 WBC RBC Hgb Hct MCHC RDW MCV MCH Lymph % (Auto) [place] % (Auto) [place] # Eos # Lymph # (Auto) [place] # (Auto) Eos # (Auto) Seg Neutrophils % Seg Neuts % (Manual) Baso # (Auto) Lymphocytes % (Manual) Monocytes % (Manual) Eosinophils % (Manual) Basophils % (Manual) Seg Neutrophils # Seg Neutrophils # Man Lymphocytes # (Manual) Monocytes # (Manual) Eosinophils # (Manual) Nucleated RBC % Basophils # (Manual) PT INR APTT Heparin Anti-Xa Level ABG pH POC ABG pO2 78.1 L ABG pO2 ABG HCO3 ABG O2 Saturation ABG Base Excess POC ABG pCO2 ABG Hemoglobin ABG Oxyhemoglobin ABG Glucose Oxyhemoglobin Sodium Potassium Chloride Carbon Dioxide BUN Creatinine Glucose POC Glucose 120 H 123 H Lactic Acid Calcium Phosphorus Magnesium AST ALT Lactate Dehydrogenase CK-MB (CK-2) C-Reactive Protein NT-Pro-B Natriuret Pep Total Protein Albumin Arterial Blood Glucose Urine WBC (Auto) 12/03/19 12/03/19 12/03/19 06:03 06:14 11:46 WBC RBC Hgb Hct MCHC RDW MCV MCH Lymph % (Auto) [place] % (Auto) [place] # Eos # Lymph # (Auto) [place] # (Auto) Eos # (Auto) Seg Neutrophils % Seg Neuts % (Manual) Baso # (Auto) Lymphocytes % (Manual) Monocytes % (Manual) Eosinophils % (Manual) Basophils % (Manual) Seg Neutrophils # Seg Neutrophils # Man Lymphocytes # (Manual) Monocytes # (Manual) Eosinophils # (Manual) Nucleated RBC % Basophils # (Manual) PT INR APTT Heparin Anti-Xa Level ABG pH POC ABG pO2 ABG pO2 ABG HCO3 ABG O2 Saturation ABG Base Excess POC ABG pCO2 ABG Hemoglobin ABG Oxyhemoglobin ABG Glucose Oxyhemoglobin Sodium Potassium Chloride Carbon Dioxide BUN Creatinine Glucose POC Glucose 142 H 130 H Lactic Acid Calcium Phosphorus Magnesium AST ALT Lactate Dehydrogenase CK-MB (CK-2) C-Reactive Protein NT-Pro-B Natriuret Pep Total Protein Albumin Arterial Blood Glucose Urine WBC (Auto) 8.0 H 12/03/19 12/03/19 12/04/19 15:50 17:39 00:04 WBC RBC Hgb Hct MCHC RDW MCV MCH Lymph % (Auto) [place] % (Auto) [place] # Eos # Lymph # (Auto) [place] # (Auto) Eos # (Auto) Seg Neutrophils % Seg Neuts % (Manual) Baso # (Auto) Lymphocytes % (Manual) Monocytes % (Manual) Eosinophils % (Manual) Basophils % (Manual) Seg Neutrophils # Seg Neutrophils # Man Lymphocytes # (Manual) Monocytes # (Manual) Eosinophils # (Manual) Nucleated RBC % Basophils # (Manual) PT INR APTT Heparin Anti-Xa Level ABG pH POC ABG pO2 ABG pO2 ABG HCO3 ABG O2 Saturation ABG Base Excess POC ABG pCO2 ABG Hemoglobin ABG Oxyhemoglobin ABG Glucose Oxyhemoglobin Sodium Potassium Chloride Carbon Dioxide BUN Creatinine Glucose POC Glucose 146 H 133 H Lactic Acid Calcium Phosphorus 2.40 L Magnesium AST ALT Lactate Dehydrogenase CK-MB (CK-2) C-Reactive Protein NT-Pro-B Natriuret Pep Total Protein Albumin Arterial Blood Glucose Urine WBC (Auto) 12/04/19 12/04/19 12/04/19 03:58 03:58 05:22 WBC 12.5 H RBC Hgb 11.2 L Hct 35.2 L MCHC RDW 16.0 H MCV MCH Lymph % (Auto) [place] % (Auto) 9.6 H [place] # 1.2 H Eos # 0.5 H Lymph # (Auto) [place] # (Auto) Eos # (Auto) Seg Neutrophils % Seg Neuts % (Manual) Baso # (Auto) Lymphocytes % (Manual) Monocytes % (Manual) Eosinophils % (Manual) Basophils % (Manual) Seg Neutrophils # 8.6 H Seg Neutrophils # Man Lymphocytes # (Manual) Monocytes # (Manual) Eosinophils # (Manual) Nucleated RBC % Basophils # (Manual) PT INR APTT Heparin Anti-Xa Level ABG pH POC ABG pO2 ABG pO2 ABG HCO3 ABG O2 Saturation ABG Base Excess POC ABG pCO2 ABG Hemoglobin ABG Oxyhemoglobin ABG Glucose Oxyhemoglobin Sodium 146 H Potassium Chloride 108.6 H Carbon Dioxide BUN 30 H Creatinine 0.7 L Glucose 121 H POC Glucose 132 H Lactic Acid Calcium Phosphorus Magnesium AST ALT Lactate Dehydrogenase CK-MB (CK-2) C-Reactive Protein NT-Pro-B Natriuret Pep Total Protein Albumin Arterial Blood Glucose Urine WBC (Auto) 12/04/19 12/04/19 12/05/19 13:26 18:43 00:19 WBC RBC Hgb Hct MCHC RDW MCV MCH Lymph % (Auto) [place] % (Auto) [place] # Eos # Lymph # (Auto) [place] # (Auto) Eos # (Auto) Seg Neutrophils % Seg Neuts % (Manual) Baso # (Auto) Lymphocytes % (Manual) Monocytes % (Manual) Eosinophils % (Manual) Basophils % (Manual) Seg Neutrophils # Seg Neutrophils # Man Lymphocytes # (Manual) Monocytes # (Manual) Eosinophils # (Manual) Nucleated RBC % Basophils # (Manual) PT INR APTT Heparin Anti-Xa Level ABG pH POC ABG pO2 ABG pO2 ABG HCO3 ABG O2 Saturation ABG Base Excess POC ABG pCO2 ABG Hemoglobin ABG Oxyhemoglobin ABG Glucose Oxyhemoglobin Sodium Potassium Chloride Carbon Dioxide BUN Creatinine Glucose POC Glucose 185 H 156 H 150 H Lactic Acid Calcium Phosphorus Magnesium AST ALT Lactate Dehydrogenase CK-MB (CK-2) C-Reactive Protein NT-Pro-B Natriuret Pep Total Protein Albumin Arterial Blood Glucose Urine WBC (Auto) 12/05/19 12/05/19 12/05/19 03:37 03:37 05:14 WBC 16.3 H RBC Hgb 11.4 L Hct MCHC RDW 15.6 H MCV MCH Lymph % (Auto) 9.9 L [place] % (Auto) 9.7 H [place] # 1.6 H Eos # Lymph # (Auto) [place] # (Auto) Eos # (Auto) Seg Neutrophils % 78.0 H Seg Neuts % (Manual) Baso # (Auto) Lymphocytes % (Manual) Monocytes % (Manual) Eosinophils % (Manual) Basophils % (Manual) Seg Neutrophils # 12.7 H Seg Neutrophils # Man Lymphocytes # (Manual) Monocytes # (Manual) Eosinophils # (Manual) Nucleated RBC % Basophils # (Manual) PT INR APTT Heparin Anti-Xa Level ABG pH POC ABG pO2 ABG pO2 ABG HCO3 ABG O2 Saturation ABG Base Excess POC ABG pCO2 ABG Hemoglobin ABG Oxyhemoglobin ABG Glucose Oxyhemoglobin Sodium 146 H Potassium Chloride 107.2 H Carbon Dioxide BUN 27 H Creatinine 0.7 L Glucose 171 H POC Glucose 168 H Lactic Acid Calcium Phosphorus Magnesium AST ALT Lactate Dehydrogenase CK-MB (CK-2) C-Reactive Protein NT-Pro-B Natriuret Pep Total Protein Albumin Arterial Blood Glucose Urine WBC (Auto) 12/05/19 12/05/19 12/05/19 12:31 18:10 23:58 WBC RBC Hgb Hct MCHC RDW MCV MCH Lymph % (Auto) [place] % (Auto) [place] # Eos # Lymph # (Auto) [place] # (Auto) Eos # (Auto) Seg Neutrophils % Seg Neuts % (Manual) Baso # (Auto) Lymphocytes % (Manual) Monocytes % (Manual) Eosinophils % (Manual) Basophils % (Manual) Seg Neutrophils # Seg Neutrophils # Man Lymphocytes # (Manual) Monocytes # (Manual) Eosinophils # (Manual) Nucleated RBC % Basophils # (Manual) PT INR APTT Heparin Anti-Xa Level ABG pH POC ABG pO2 ABG pO2 ABG HCO3 ABG O2 Saturation ABG Base Excess POC ABG pCO2 ABG Hemoglobin ABG Oxyhemoglobin ABG Glucose Oxyhemoglobin Sodium Potassium Chloride Carbon Dioxide BUN Creatinine Glucose POC Glucose 159 H 198 H 115 H Lactic Acid Calcium Phosphorus Magnesium AST ALT Lactate Dehydrogenase CK-MB (CK-2) C-Reactive Protein NT-Pro-B Natriuret Pep Total Protein Albumin Arterial Blood Glucose Urine WBC (Auto) 12/06/19 12/06/19 12/06/19 05:24 05:24 05:25 WBC 14.9 H RBC Hgb 10.8 L Hct 34.0 L MCHC RDW 15.6 H MCV MCH Lymph % (Auto) 10.7 L [place] % (Auto) 8.3 H [place] # 1.2 H Eos # Lymph # (Auto) [place] # (Auto) Eos # (Auto) Seg Neutrophils % 78.7 H Seg Neuts % (Manual) Baso # (Auto) Lymphocytes % (Manual) Monocytes % (Manual) Eosinophils % (Manual) Basophils % (Manual) Seg Neutrophils # 11.7 H Seg Neutrophils # Man Lymphocytes # (Manual) Monocytes # (Manual) Eosinophils # (Manual) Nucleated RBC % Basophils # (Manual) PT INR APTT Heparin Anti-Xa Level ABG pH POC ABG pO2 ABG pO2 ABG HCO3 ABG O2 Saturation ABG Base Excess POC ABG pCO2 ABG Hemoglobin ABG Oxyhemoglobin ABG Glucose Oxyhemoglobin Sodium 148 H Potassium 5.1 H Chloride 107.6 H Carbon Dioxide BUN 27 H Creatinine 0.7 L Glucose 155 H POC Glucose 157 H Lactic Acid Calcium Phosphorus Magnesium AST ALT Lactate Dehydrogenase CK-MB (CK-2) C-Reactive Protein NT-Pro-B Natriuret Pep Total Protein Albumin Arterial Blood Glucose Urine WBC (Auto) 12/07/19 12/07/19 12/07/19 00:13 05:34 11:33 WBC RBC Hgb Hct MCHC RDW MCV MCH Lymph % (Auto) [place] % (Auto) [place] # Eos # Lymph # (Auto) [place] # (Auto) Eos # (Auto) Seg Neutrophils % Seg Neuts % (Manual) Baso # (Auto) Lymphocytes % (Manual) Monocytes % (Manual) Eosinophils % (Manual) Basophils % (Manual) Seg Neutrophils # Seg Neutrophils # Man Lymphocytes # (Manual) Monocytes # (Manual) Eosinophils # (Manual) Nucleated RBC % Basophils # (Manual) PT INR APTT Heparin Anti-Xa Level ABG pH POC ABG pO2 ABG pO2 ABG HCO3 ABG O2 Saturation ABG Base Excess POC ABG pCO2 ABG Hemoglobin ABG Oxyhemoglobin ABG Glucose Oxyhemoglobin Sodium Potassium Chloride Carbon Dioxide BUN Creatinine Glucose POC Glucose 142 H 111 H 169 H Lactic Acid Calcium Phosphorus Magnesium AST ALT Lactate Dehydrogenase CK-MB (CK-2) C-Reactive Protein NT-Pro-B Natriuret Pep Total Protein Albumin Arterial Blood Glucose Urine WBC (Auto) 12/07/19 12/07/19 12/07/19 12:41 13:25 18:19 WBC 12.4 H RBC 3.53 L Hgb 10.2 L Hct 32.1 L MCHC RDW 15.3 H MCV MCH Lymph % (Auto) 10.6 L [place] % (Auto) 7.8 H [place] # 1.0 H Eos # Lymph # (Auto) [place] # (Auto) Eos # (Auto) Seg Neutrophils % 77.6 H Seg Neuts % (Manual) Baso # (Auto) Lymphocytes % (Manual) Monocytes % (Manual) Eosinophils % (Manual) Basophils % (Manual) Seg Neutrophils # 9.6 H Seg Neutrophils # Man Lymphocytes # (Manual) Monocytes # (Manual) Eosinophils # (Manual) Nucleated RBC % Basophils # (Manual) PT INR APTT Heparin Anti-Xa Level ABG pH POC ABG pO2 ABG pO2 ABG HCO3 ABG O2 Saturation ABG Base Excess POC ABG pCO2 ABG Hemoglobin ABG Oxyhemoglobin ABG Glucose Oxyhemoglobin Sodium 149 H Potassium Chloride 108.4 H Carbon Dioxide BUN 26 H Creatinine 0.6 L Glucose 149 H POC Glucose 164 H Lactic Acid Calcium Phosphorus Magnesium 2.60 H AST 121 H ALT 145 H Lactate Dehydrogenase CK-MB (CK-2) C-Reactive Protein NT-Pro-B Natriuret Pep Total Protein Albumin 2.6 L Arterial Blood Glucose Urine WBC (Auto) 12/07/19 12/08/19 12/08/19 22:25 00:02 03:55 WBC 13.3 H RBC 3.40 L Hgb 9.7 L Hct 30.8 L MCHC 31 L RDW 15.5 H MCV MCH Lymph % (Auto) [place] % (Auto) 8.1 H [place] # 1.1 H Eos # Lymph # (Auto) [place] # (Auto) Eos # (Auto) Seg Neutrophils % 73.0 H Seg Neuts % (Manual) Baso # (Auto) Lymphocytes % (Manual) Monocytes % (Manual) Eosinophils % (Manual) Basophils % (Manual) Seg Neutrophils # 9.7 H Seg Neutrophils # Man Lymphocytes # (Manual) Monocytes # (Manual) Eosinophils # (Manual) Nucleated RBC % Basophils # (Manual) PT INR APTT Heparin Anti-Xa Level 0.12 L ABG pH POC ABG pO2 ABG pO2 ABG HCO3 ABG O2 Saturation ABG Base Excess POC ABG pCO2 ABG Hemoglobin ABG Oxyhemoglobin ABG Glucose Oxyhemoglobin Sodium Potassium Chloride Carbon Dioxide BUN Creatinine Glucose POC Glucose 151 H Lactic Acid Calcium Phosphorus Magnesium AST ALT Lactate Dehydrogenase CK-MB (CK-2) C-Reactive Protein NT-Pro-B Natriuret Pep Total Protein Albumin Arterial Blood Glucose Urine WBC (Auto) 12/08/19 12/08/19 12/08/19 03:55 05:21 06:01 WBC RBC Hgb Hct MCHC RDW MCV MCH Lymph % (Auto) [place] % (Auto) [place] # Eos # Lymph # (Auto) [place] # (Auto) Eos # (Auto) Seg Neutrophils % Seg Neuts % (Manual) Baso # (Auto) Lymphocytes % (Manual) Monocytes % (Manual) Eosinophils % (Manual) Basophils % (Manual) Seg Neutrophils # Seg Neutrophils # Man Lymphocytes # (Manual) Monocytes # (Manual) Eosinophils # (Manual) Nucleated RBC % Basophils # (Manual) PT INR APTT Heparin Anti-Xa Level 0.20 L ABG pH POC ABG pO2 ABG pO2 ABG HCO3 ABG O2 Saturation ABG Base Excess POC ABG pCO2 ABG Hemoglobin ABG Oxyhemoglobin ABG Glucose Oxyhemoglobin Sodium 149 H Potassium Chloride 108.0 H Carbon Dioxide BUN 28 H Creatinine 0.6 L Glucose 144 H POC Glucose 143 H Lactic Acid Calcium Phosphorus Magnesium AST 98 H ALT 145 H Lactate Dehydrogenase CK-MB (CK-2) C-Reactive Protein NT-Pro-B Natriuret Pep Total Protein 6.0 L Albumin 2.4 L Arterial Blood Glucose Urine WBC (Auto) 12/08/19 12/08/19 12/08/19 12:08 18:11 23:53 WBC RBC Hgb Hct MCHC RDW MCV MCH Lymph % (Auto) [place] % (Auto) [place] # Eos # Lymph # (Auto) [place] # (Auto) Eos # (Auto) Seg Neutrophils % Seg Neuts % (Manual) Baso # (Auto) Lymphocytes % (Manual) Monocytes % (Manual) Eosinophils % (Manual) Basophils % (Manual) Seg Neutrophils # Seg Neutrophils # Man Lymphocytes # (Manual) Monocytes # (Manual) Eosinophils # (Manual) Nucleated RBC % Basophils # (Manual) PT INR APTT Heparin Anti-Xa Level ABG pH POC ABG pO2 ABG pO2 ABG HCO3 ABG O2 Saturation ABG Base Excess POC ABG pCO2 ABG Hemoglobin ABG Oxyhemoglobin ABG Glucose Oxyhemoglobin Sodium Potassium Chloride Carbon Dioxide BUN Creatinine Glucose POC Glucose 172 H 122 H 162 H Lactic Acid Calcium Phosphorus Magnesium AST ALT Lactate Dehydrogenase CK-MB (CK-2) C-Reactive Protein NT-Pro-B Natriuret Pep Total Protein Albumin Arterial Blood Glucose Urine WBC (Auto) 12/09/19 12/09/19 12/09/19 04:03 04:03 05:53 WBC RBC Hgb 9.1 L Hct 28.9 L MCHC RDW MCV MCH Lymph % (Auto) [place] % (Auto) [place] # Eos # Lymph # (Auto) [place] # (Auto) Eos # (Auto) Seg Neutrophils % Seg Neuts % (Manual) Baso # (Auto) Lymphocytes % (Manual) Monocytes % (Manual) Eosinophils % (Manual) Basophils % (Manual) Seg Neutrophils # Seg Neutrophils # Man Lymphocytes # (Manual) Monocytes # (Manual) Eosinophils # (Manual) Nucleated RBC % Basophils # (Manual) PT INR APTT Heparin Anti-Xa Level 0.15 L ABG pH POC ABG pO2 ABG pO2 ABG HCO3 ABG O2 Saturation ABG Base Excess POC ABG pCO2 ABG Hemoglobin ABG Oxyhemoglobin ABG Glucose Oxyhemoglobin Sodium Potassium Chloride Carbon Dioxide BUN Creatinine Glucose POC Glucose 124 H Lactic Acid Calcium Phosphorus Magnesium AST ALT Lactate Dehydrogenase CK-MB (CK-2) C-Reactive Protein NT-Pro-B Natriuret Pep Total Protein Albumin Arterial Blood Glucose Urine WBC (Auto) 12/09/19 12/09/19 12/10/19 09:43 12:41 00:13 WBC RBC Hgb Hct MCHC RDW MCV MCH Lymph % (Auto) [place] % (Auto) [place] # Eos # Lymph # (Auto) [place] # (Auto) Eos # (Auto) Seg Neutrophils % Seg Neuts % (Manual) Baso # (Auto) Lymphocytes % (Manual) Monocytes % (Manual) Eosinophils % (Manual) Basophils % (Manual) Seg Neutrophils # Seg Neutrophils # Man Lymphocytes # (Manual) Monocytes # (Manual) Eosinophils # (Manual) Nucleated RBC % Basophils # (Manual) PT INR APTT Heparin Anti-Xa Level ABG pH POC ABG pO2 ABG pO2 ABG HCO3 ABG O2 Saturation ABG Base Excess POC ABG pCO2 ABG Hemoglobin ABG Oxyhemoglobin ABG Glucose Oxyhemoglobin Sodium Potassium Chloride Carbon Dioxide BUN 25 H Creatinine 0.6 L Glucose 131 H POC Glucose 109 H 120 H Lactic Acid Calcium Phosphorus Magnesium AST ALT Lactate Dehydrogenase CK-MB (CK-2) C-Reactive Protein NT-Pro-B Natriuret Pep Total Protein Albumin Arterial Blood Glucose Urine WBC (Auto) 12/10/19 12/10/19 12/10/19 04:14 04:14 12:00 WBC 13.3 H RBC 3.34 L Hgb 9.6 L Hct 30.4 L MCHC RDW 15.4 H MCV MCH Lymph % (Auto) [place] % (Auto) [place] # Eos # Lymph # (Auto) [place] # (Auto) Eos # (Auto) Seg Neutrophils % Seg Neuts % (Manual) 75.0 H Baso # (Auto) Lymphocytes % (Manual) 13.0 L Monocytes % (Manual) 8.0 H Eosinophils % (Manual) Basophils % (Manual) 2.0 H Seg Neutrophils # Seg Neutrophils # Man 10.0 H Lymphocytes # (Manual) Monocytes # (Manual) 1.1 H Eosinophils # (Manual) Nucleated RBC % Basophils # (Manual) 0.3 H PT INR APTT Heparin Anti-Xa Level ABG pH POC ABG pO2 ABG pO2 ABG HCO3 ABG O2 Saturation ABG Base Excess POC ABG pCO2 ABG Hemoglobin ABG Oxyhemoglobin ABG Glucose Oxyhemoglobin Sodium 147 H Potassium Chloride 108.3 H Carbon Dioxide BUN 21 H Creatinine 0.6 L Glucose 104 H POC Glucose 133 H Lactic Acid Calcium Phosphorus Magnesium AST ALT Lactate Dehydrogenase CK-MB (CK-2) C-Reactive Protein NT-Pro-B Natriuret Pep Total Protein Albumin Arterial Blood Glucose Urine WBC (Auto) 12/10/19 12/10/19 12/11/19 18:44 21:20 00:08 WBC 14.9 H RBC 3.36 L Hgb 9.6 L Hct 30.5 L MCHC RDW 15.4 H MCV MCH Lymph % (Auto) [place] % (Auto) [place] # Eos # Lymph # (Auto) [place] # (Auto) Eos # (Auto) Seg Neutrophils % Seg Neuts % (Manual) Baso # (Auto) Lymphocytes % (Manual) Monocytes % (Manual) Eosinophils % (Manual) Basophils % (Manual) Seg Neutrophils # Seg Neutrophils # Man Lymphocytes # (Manual) Monocytes # (Manual) Eosinophils # (Manual) Nucleated RBC % Basophils # (Manual) PT INR APTT Heparin Anti-Xa Level ABG pH POC ABG pO2 ABG pO2 ABG HCO3 ABG O2 Saturation ABG Base Excess POC ABG pCO2 ABG Hemoglobin ABG Oxyhemoglobin ABG Glucose Oxyhemoglobin Sodium Potassium Chloride Carbon Dioxide BUN Creatinine Glucose POC Glucose 119 H 134 H Lactic Acid Calcium Phosphorus Magnesium AST ALT Lactate Dehydrogenase CK-MB (CK-2) C-Reactive Protein NT-Pro-B Natriuret Pep Total Protein Albumin Arterial Blood Glucose Urine WBC (Auto) 12/11/19 12/11/19 12/11/19 03:54 07:28 08:36 WBC 11.9 H RBC 3.25 L Hgb 9.6 L Hct 29.2 L MCHC RDW 15.7 H MCV MCH Lymph % (Auto) [place] % (Auto) [place] # Eos # Lymph # (Auto) [place] # (Auto) Eos # (Auto) Seg Neutrophils % Seg Neuts % (Manual) Baso # (Auto) Lymphocytes % (Manual) Monocytes % (Manual) Eosinophils % (Manual) Basophils % (Manual) Seg Neutrophils # Seg Neutrophils # Man Lymphocytes # (Manual) Monocytes # (Manual) Eosinophils # (Manual) Nucleated RBC % Basophils # (Manual) PT INR APTT Heparin Anti-Xa Level 0.10 L 0.16 L ABG pH POC ABG pO2 ABG pO2 ABG HCO3 ABG O2 Saturation ABG Base Excess POC ABG pCO2 ABG Hemoglobin ABG Oxyhemoglobin ABG Glucose Oxyhemoglobin Sodium Potassium Chloride Carbon Dioxide BUN Creatinine Glucose POC Glucose Lactic Acid Calcium Phosphorus Magnesium AST ALT Lactate Dehydrogenase CK-MB (CK-2) C-Reactive Protein NT-Pro-B Natriuret Pep Total Protein Albumin Arterial Blood Glucose Urine WBC (Auto) 12/11/19 12/11/19 12/11/19 08:36 11:45 17:15 WBC RBC Hgb Hct MCHC RDW MCV MCH Lymph % (Auto) [place] % (Auto) [place] # Eos # Lymph # (Auto) [place] # (Auto) Eos # (Auto) Seg Neutrophils % Seg Neuts % (Manual) Baso # (Auto) Lymphocytes % (Manual) Monocytes % (Manual) Eosinophils % (Manual) Basophils % (Manual) Seg Neutrophils # Seg Neutrophils # Man Lymphocytes # (Manual) Monocytes # (Manual) Eosinophils # (Manual) Nucleated RBC % Basophils # (Manual) PT INR APTT Heparin Anti-Xa Level ABG pH POC ABG pO2 ABG pO2 ABG HCO3 ABG O2 Saturation ABG Base Excess POC ABG pCO2 ABG Hemoglobin ABG Oxyhemoglobin ABG Glucose Oxyhemoglobin Sodium Potassium Chloride Carbon Dioxide BUN Creatinine 0.5 L Glucose 128 H POC Glucose 136 H 109 H Lactic Acid Calcium Phosphorus Magnesium AST ALT Lactate Dehydrogenase CK-MB (CK-2) C-Reactive Protein NT-Pro-B Natriuret Pep Total Protein Albumin Arterial Blood Glucose Urine WBC (Auto) 12/12/19 12/12/19 12/12/19 00:03 05:53 05:53 WBC RBC Hgb 8.8 L Hct 27.6 L MCHC RDW MCV MCH Lymph % (Auto) [place] % (Auto) [place] # Eos # Lymph # (Auto) [place] # (Auto) Eos # (Auto) Seg Neutrophils % Seg Neuts % (Manual) Baso # (Auto) Lymphocytes % (Manual) Monocytes % (Manual) Eosinophils % (Manual) Basophils % (Manual) Seg Neutrophils # Seg Neutrophils # Man Lymphocytes # (Manual) Monocytes # (Manual) Eosinophils # (Manual) Nucleated RBC % Basophils # (Manual) PT INR APTT Heparin Anti-Xa Level 0.22 L ABG pH POC ABG pO2 ABG pO2 ABG HCO3 ABG O2 Saturation ABG Base Excess POC ABG pCO2 ABG Hemoglobin ABG Oxyhemoglobin ABG Glucose Oxyhemoglobin Sodium Potassium Chloride Carbon Dioxide BUN Creatinine Glucose POC Glucose 116 H Lactic Acid Calcium Phosphorus Magnesium AST ALT Lactate Dehydrogenase CK-MB (CK-2) C-Reactive Protein NT-Pro-B Natriuret Pep Total Protein Albumin Arterial Blood Glucose Urine WBC (Auto) 12/12/19 12/12/19 12/12/19 09:38 12:18 17:44 WBC RBC Hgb Hct MCHC RDW MCV MCH Lymph % (Auto) [place] % (Auto) [place] # Eos # Lymph # (Auto) [place] # (Auto) Eos # (Auto) Seg Neutrophils % Seg Neuts % (Manual) Baso # (Auto) Lymphocytes % (Manual) Monocytes % (Manual) Eosinophils % (Manual) Basophils % (Manual) Seg Neutrophils # Seg Neutrophils # Man Lymphocytes # (Manual) Monocytes # (Manual) Eosinophils # (Manual) Nucleated RBC % Basophils # (Manual) PT INR APTT Heparin Anti-Xa Level ABG pH POC ABG pO2 ABG pO2 ABG HCO3 ABG O2 Saturation ABG Base Excess POC ABG pCO2 ABG Hemoglobin ABG Oxyhemoglobin ABG Glucose Oxyhemoglobin Sodium Potassium Chloride Carbon Dioxide BUN Creatinine Glucose POC Glucose 115 H 146 H 146 H Lactic Acid Calcium Phosphorus Magnesium AST ALT Lactate Dehydrogenase CK-MB (CK-2) C-Reactive Protein NT-Pro-B Natriuret Pep Total Protein Albumin Arterial Blood Glucose Urine WBC (Auto) 12/12/19 12/13/19 12/13/19 23:33 05:32 05:32 WBC 13.1 H RBC 3.27 L Hgb 9.5 L Hct 29.3 L MCHC RDW 15.6 H MCV MCH Lymph % (Auto) [place] % (Auto) [place] # Eos # Lymph # (Auto) [place] # (Auto) Eos # (Auto) Seg Neutrophils % Seg Neuts % (Manual) 74.0 H Baso # (Auto) Lymphocytes % (Manual) 8.0 L Monocytes % (Manual) 9.0 H Eosinophils % (Manual) 5.0 H Basophils % (Manual) Seg Neutrophils # Seg Neutrophils # Man 9.7 H Lymphocytes # (Manual) 1.0 L Monocytes # (Manual) 1.2 H Eosinophils # (Manual) 0.7 H Nucleated RBC % Basophils # (Manual) PT INR APTT Heparin Anti-Xa Level 0.20 L ABG pH POC ABG pO2 ABG pO2 ABG HCO3 ABG O2 Saturation ABG Base Excess POC ABG pCO2 ABG Hemoglobin ABG Oxyhemoglobin ABG Glucose Oxyhemoglobin Sodium Potassium Chloride Carbon Dioxide BUN Creatinine Glucose POC Glucose 126 H Lactic Acid Calcium Phosphorus Magnesium AST ALT Lactate Dehydrogenase CK-MB (CK-2) C-Reactive Protein NT-Pro-B Natriuret Pep Total Protein Albumin Arterial Blood Glucose Urine WBC (Auto) 12/13/19 12/13/19 12/13/19 05:32 05:46 11:57 WBC RBC Hgb Hct MCHC RDW MCV MCH Lymph % (Auto) [place] % (Auto) [place] # Eos # Lymph # (Auto) [place] # (Auto) Eos # (Auto) Seg Neutrophils % Seg Neuts % (Manual) Baso # (Auto) Lymphocytes % (Manual) Monocytes % (Manual) Eosinophils % (Manual) Basophils % (Manual) Seg Neutrophils # Seg Neutrophils # Man Lymphocytes # (Manual) Monocytes # (Manual) Eosinophils # (Manual) Nucleated RBC % Basophils # (Manual) PT INR APTT Heparin Anti-Xa Level ABG pH POC ABG pO2 ABG pO2 ABG HCO3 ABG O2 Saturation ABG Base Excess POC ABG pCO2 ABG Hemoglobin ABG Oxyhemoglobin ABG Glucose Oxyhemoglobin Sodium Potassium Chloride Carbon Dioxide 31 H BUN Creatinine 0.6 L Glucose 114 H POC Glucose 118 H 133 H Lactic Acid Calcium Phosphorus Magnesium AST ALT Lactate Dehydrogenase CK-MB (CK-2) C-Reactive Protein NT-Pro-B Natriuret Pep Total Protein Albumin Arterial Blood Glucose Urine WBC (Auto) 12/13/19 12/13/19 12/14/19 17:44 23:46 05:32 WBC RBC Hgb Hct MCHC RDW MCV MCH Lymph % (Auto) [place] % (Auto) [place] # Eos # Lymph # (Auto) [place] # (Auto) Eos # (Auto) Seg Neutrophils % Seg Neuts % (Manual) Baso # (Auto) Lymphocytes % (Manual) Monocytes % (Manual) Eosinophils % (Manual) Basophils % (Manual) Seg Neutrophils # Seg Neutrophils # Man Lymphocytes # (Manual) Monocytes # (Manual) Eosinophils # (Manual) Nucleated RBC % Basophils # (Manual) PT INR APTT Heparin Anti-Xa Level ABG pH POC ABG pO2 ABG pO2 ABG HCO3 ABG O2 Saturation ABG Base Excess POC ABG pCO2 ABG Hemoglobin ABG Oxyhemoglobin ABG Glucose Oxyhemoglobin Sodium Potassium Chloride Carbon Dioxide BUN Creatinine Glucose POC Glucose 161 H 126 H 139 H Lactic Acid Calcium Phosphorus Magnesium AST ALT Lactate Dehydrogenase CK-MB (CK-2) C-Reactive Protein NT-Pro-B Natriuret Pep Total Protein Albumin Arterial Blood Glucose Urine WBC (Auto) 12/14/19 12/14/19 12/14/19 06:03 06:03 09:37 WBC RBC Hgb 9.6 L Hct 30.4 L MCHC RDW MCV MCH Lymph % (Auto) [place] % (Auto) [place] # Eos # Lymph # (Auto) [place] # (Auto) Eos # (Auto) Seg Neutrophils % Seg Neuts % (Manual) Baso # (Auto) Lymphocytes % (Manual) Monocytes % (Manual) Eosinophils % (Manual) Basophils % (Manual) Seg Neutrophils # Seg Neutrophils # Man Lymphocytes # (Manual) Monocytes # (Manual) Eosinophils # (Manual) Nucleated RBC % Basophils # (Manual) PT INR APTT Heparin Anti-Xa Level 0.24 L ABG pH POC ABG pO2 ABG pO2 ABG HCO3 ABG O2 Saturation ABG Base Excess POC ABG pCO2 ABG Hemoglobin ABG Oxyhemoglobin ABG Glucose Oxyhemoglobin Sodium Potassium Chloride Carbon Dioxide BUN Creatinine 0.6 L Glucose 162 H POC Glucose Lactic Acid Calcium Phosphorus Magnesium AST 71 H ALT 118 H Lactate Dehydrogenase CK-MB (CK-2) C-Reactive Protein NT-Pro-B Natriuret Pep Total Protein 6.2 L Albumin 2.3 L Arterial Blood Glucose Urine WBC (Auto) 12/14/19 12/14/19 12/15/19 12:06 18:18 00:19 WBC RBC Hgb Hct MCHC RDW MCV MCH Lymph % (Auto) [place] % (Auto) [place] # Eos # Lymph # (Auto) [place] # (Auto) Eos # (Auto) Seg Neutrophils % Seg Neuts % (Manual) Baso # (Auto) Lymphocytes % (Manual) Monocytes % (Manual) Eosinophils % (Manual) Basophils % (Manual) Seg Neutrophils # Seg Neutrophils # Man Lymphocytes # (Manual) Monocytes # (Manual) Eosinophils # (Manual) Nucleated RBC % Basophils # (Manual) PT INR APTT Heparin Anti-Xa Level ABG pH POC ABG pO2 ABG pO2 ABG HCO3 ABG O2 Saturation ABG Base Excess POC ABG pCO2 ABG Hemoglobin ABG Oxyhemoglobin ABG Glucose Oxyhemoglobin Sodium Potassium Chloride Carbon Dioxide BUN Creatinine Glucose POC Glucose 147 H 166 H 123 H Lactic Acid Calcium Phosphorus Magnesium AST ALT Lactate Dehydrogenase CK-MB (CK-2) C-Reactive Protein NT-Pro-B Natriuret Pep Total Protein Albumin Arterial Blood Glucose Urine WBC (Auto) 12/15/19 12/15/19 12/15/19 05:28 05:29 05:29 WBC 14.9 H RBC 3.19 L Hgb 9.1 L Hct 28.7 L MCHC RDW 16.0 H MCV MCH Lymph % (Auto) [place] % (Auto) [place] # Eos # Lymph # (Auto) [place] # (Auto) Eos # (Auto) Seg Neutrophils % Seg Neuts % (Manual) Baso # (Auto) Lymphocytes % (Manual) Monocytes % (Manual) Eosinophils % (Manual) Basophils % (Manual) Seg Neutrophils # Seg Neutrophils # Man Lymphocytes # (Manual) Monocytes # (Manual) Eosinophils # (Manual) Nucleated RBC % Basophils # (Manual) PT INR APTT Heparin Anti-Xa Level 0.19 L ABG pH POC ABG pO2 ABG pO2 ABG HCO3 ABG O2 Saturation ABG Base Excess POC ABG pCO2 ABG Hemoglobin ABG Oxyhemoglobin ABG Glucose Oxyhemoglobin Sodium Potassium Chloride Carbon Dioxide BUN Creatinine 0.6 L Glucose 110 H POC Glucose Lactic Acid Calcium Phosphorus Magnesium AST ALT Lactate Dehydrogenase CK-MB (CK-2) C-Reactive Protein NT-Pro-B Natriuret Pep Total Protein Albumin Arterial Blood Glucose Urine WBC (Auto) 12/15/19 12/15/19 12/15/19 05:53 11:50 17:26 WBC RBC Hgb Hct MCHC RDW MCV MCH Lymph % (Auto) [place] % (Auto) [place] # Eos # Lymph # (Auto) [place] # (Auto) Eos # (Auto) Seg Neutrophils % Seg Neuts % (Manual) Baso # (Auto) Lymphocytes % (Manual) Monocytes % (Manual) Eosinophils % (Manual) Basophils % (Manual) Seg Neutrophils # Seg Neutrophils # Man Lymphocytes # (Manual) Monocytes # (Manual) Eosinophils # (Manual) Nucleated RBC % Basophils # (Manual) PT INR APTT Heparin Anti-Xa Level ABG pH POC ABG pO2 ABG pO2 ABG HCO3 ABG O2 Saturation ABG Base Excess POC ABG pCO2 ABG Hemoglobin ABG Oxyhemoglobin ABG Glucose Oxyhemoglobin Sodium Potassium Chloride Carbon Dioxide BUN Creatinine Glucose POC Glucose 119 H 132 H 128 H Lactic Acid Calcium Phosphorus Magnesium AST ALT Lactate Dehydrogenase CK-MB (CK-2) C-Reactive Protein NT-Pro-B Natriuret Pep Total Protein Albumin Arterial Blood Glucose Urine WBC (Auto) 12/15/19 12/16/19 12/16/19 23:11 05:30 05:46 WBC RBC Hgb 8.8 L Hct 27.9 L MCHC RDW MCV MCH Lymph % (Auto) [place] % (Auto) [place] # Eos # Lymph # (Auto) [place] # (Auto) Eos # (Auto) Seg Neutrophils % Seg Neuts % (Manual) Baso # (Auto) Lymphocytes % (Manual) Monocytes % (Manual) Eosinophils % (Manual) Basophils % (Manual) Seg Neutrophils # Seg Neutrophils # Man Lymphocytes # (Manual) Monocytes # (Manual) Eosinophils # (Manual) Nucleated RBC % Basophils # (Manual) PT INR APTT Heparin Anti-Xa Level ABG pH POC ABG pO2 ABG pO2 ABG HCO3 ABG O2 Saturation ABG Base Excess POC ABG pCO2 ABG Hemoglobin ABG Oxyhemoglobin ABG Glucose Oxyhemoglobin Sodium Potassium Chloride Carbon Dioxide BUN Creatinine Glucose POC Glucose 150 H 134 H Lactic Acid Calcium Phosphorus Magnesium AST ALT Lactate Dehydrogenase CK-MB (CK-2) C-Reactive Protein NT-Pro-B Natriuret Pep Total Protein Albumin Arterial Blood Glucose Urine WBC (Auto) 12/16/19 12/16/19 12/16/19 05:46 05:46 11:44 WBC RBC Hgb Hct MCHC RDW MCV MCH Lymph % (Auto) [place] % (Auto) [place] # Eos # Lymph # (Auto) [place] # (Auto) Eos # (Auto) Seg Neutrophils % Seg Neuts % (Manual) Baso # (Auto) Lymphocytes % (Manual) Monocytes % (Manual) Eosinophils % (Manual) Basophils % (Manual) Seg Neutrophils # Seg Neutrophils # Man Lymphocytes # (Manual) Monocytes # (Manual) Eosinophils # (Manual) Nucleated RBC % Basophils # (Manual) PT INR APTT Heparin Anti-Xa Level 0.20 L ABG pH POC ABG pO2 ABG pO2 ABG HCO3 ABG O2 Saturation ABG Base Excess POC ABG pCO2 ABG Hemoglobin ABG Oxyhemoglobin ABG Glucose Oxyhemoglobin Sodium Potassium Chloride Carbon Dioxide 31 H BUN Creatinine 0.5 L Glucose 147 H POC Glucose 164 H Lactic Acid Calcium Phosphorus Magnesium AST ALT Lactate Dehydrogenase CK-MB (CK-2) C-Reactive Protein NT-Pro-B Natriuret Pep Total Protein Albumin Arterial Blood Glucose Urine WBC (Auto) 12/16/19 12/16/19 12/17/19 17:17 23:49 05:30 WBC 13.9 H RBC 3.27 L Hgb 9.4 L Hct 29.2 L MCHC RDW 16.0 H MCV MCH Lymph % (Auto) [place] % (Auto) 8.8 H [place] # Eos # Lymph # (Auto) [place] # (Auto) 1.2 H Eos # (Auto) 0.5 H Seg Neutrophils % 70.5 H Seg Neuts % (Manual) Baso # (Auto) 0.2 H Lymphocytes % (Manual) Monocytes % (Manual) Eosinophils % (Manual) Basophils % (Manual) Seg Neutrophils # 9.8 H Seg Neutrophils # Man Lymphocytes # (Manual) Monocytes # (Manual) Eosinophils # (Manual) Nucleated RBC % Basophils # (Manual) PT INR APTT Heparin Anti-Xa Level ABG pH POC ABG pO2 ABG pO2 ABG HCO3 ABG O2 Saturation ABG Base Excess POC ABG pCO2 ABG Hemoglobin ABG Oxyhemoglobin ABG Glucose Oxyhemoglobin Sodium Potassium Chloride Carbon Dioxide BUN Creatinine Glucose POC Glucose 162 H 144 H Lactic Acid Calcium Phosphorus Magnesium AST ALT Lactate Dehydrogenase CK-MB (CK-2) C-Reactive Protein NT-Pro-B Natriuret Pep Total Protein Albumin Arterial Blood Glucose Urine WBC (Auto) 12/17/19 12/17/19 12/17/19 05:30 06:06 11:50 WBC RBC Hgb Hct MCHC RDW MCV MCH Lymph % (Auto) [place] % (Auto) [place] # Eos # Lymph # (Auto) [place] # (Auto) Eos # (Auto) Seg Neutrophils % Seg Neuts % (Manual) Baso # (Auto) Lymphocytes % (Manual) Monocytes % (Manual) Eosinophils % (Manual) Basophils % (Manual) Seg Neutrophils # Seg Neutrophils # Man Lymphocytes # (Manual) Monocytes # (Manual) Eosinophils # (Manual) Nucleated RBC % Basophils # (Manual) PT INR APTT Heparin Anti-Xa Level ABG pH POC ABG pO2 ABG pO2 ABG HCO3 ABG O2 Saturation ABG Base Excess POC ABG pCO2 ABG Hemoglobin ABG Oxyhemoglobin ABG Glucose Oxyhemoglobin Sodium Potassium Chloride 97.4 L Carbon Dioxide 32 H BUN Creatinine 0.5 L Glucose 135 H POC Glucose 151 H 140 H Lactic Acid Calcium Phosphorus Magnesium AST ALT Lactate Dehydrogenase CK-MB (CK-2) C-Reactive Protein NT-Pro-B Natriuret Pep Total Protein Albumin Arterial Blood Glucose Urine WBC (Auto) 12/17/19 12/17/19 12/18/19 17:50 23:46 05:17 WBC RBC Hgb 8.8 L Hct 28.0 L MCHC RDW MCV MCH Lymph % (Auto) [place] % (Auto) [place] # Eos # Lymph # (Auto) [place] # (Auto) Eos # (Auto) Seg Neutrophils % Seg Neuts % (Manual) Baso # (Auto) Lymphocytes % (Manual) Monocytes % (Manual) Eosinophils % (Manual) Basophils % (Manual) Seg Neutrophils # Seg Neutrophils # Man Lymphocytes # (Manual) Monocytes # (Manual) Eosinophils # (Manual) Nucleated RBC % Basophils # (Manual) PT INR APTT Heparin Anti-Xa Level ABG pH POC ABG pO2 ABG pO2 ABG HCO3 ABG O2 Saturation ABG Base Excess POC ABG pCO2 ABG Hemoglobin ABG Oxyhemoglobin ABG Glucose Oxyhemoglobin Sodium Potassium Chloride Carbon Dioxide BUN Creatinine Glucose POC Glucose 158 H 150 H Lactic Acid Calcium Phosphorus Magnesium AST ALT Lactate Dehydrogenase CK-MB (CK-2) C-Reactive Protein NT-Pro-B Natriuret Pep Total Protein Albumin Arterial Blood Glucose Urine WBC (Auto) 12/18/19 12/18/19 12/18/19 05:17 05:49 11:12 WBC RBC Hgb Hct MCHC RDW MCV MCH Lymph % (Auto) [place] % (Auto) [place] # Eos # Lymph # (Auto) [place] # (Auto) Eos # (Auto) Seg Neutrophils % Seg Neuts % (Manual) Baso # (Auto) Lymphocytes % (Manual) Monocytes % (Manual) Eosinophils % (Manual) Basophils % (Manual) Seg Neutrophils # Seg Neutrophils # Man Lymphocytes # (Manual) Monocytes # (Manual) Eosinophils # (Manual) Nucleated RBC % Basophils # (Manual) PT INR APTT Heparin Anti-Xa Level 0.16 L ABG pH POC ABG pO2 ABG pO2 ABG HCO3 ABG O2 Saturation ABG Base Excess POC ABG pCO2 ABG Hemoglobin ABG Oxyhemoglobin ABG Glucose Oxyhemoglobin Sodium Potassium Chloride Carbon Dioxide BUN Creatinine Glucose POC Glucose 127 H 191 H Lactic Acid Calcium Phosphorus Magnesium AST ALT Lactate Dehydrogenase CK-MB (CK-2) C-Reactive Protein NT-Pro-B Natriuret Pep Total Protein Albumin Arterial Blood Glucose Urine WBC (Auto) 12/18/19 12/18/19 12/19/19 17:03 20:16 00:08 WBC RBC Hgb Hct MCHC RDW MCV MCH Lymph % (Auto) [place] % (Auto) [place] # Eos # Lymph # (Auto) [place] # (Auto) Eos # (Auto) Seg Neutrophils % Seg Neuts % (Manual) Baso # (Auto) Lymphocytes % (Manual) Monocytes % (Manual) Eosinophils % (Manual) Basophils % (Manual) Seg Neutrophils # Seg Neutrophils # Man Lymphocytes # (Manual) Monocytes # (Manual) Eosinophils # (Manual) Nucleated RBC % Basophils # (Manual) PT INR APTT Heparin Anti-Xa Level ABG pH POC ABG pO2 ABG pO2 ABG HCO3 ABG O2 Saturation ABG Base Excess POC ABG pCO2 ABG Hemoglobin ABG Oxyhemoglobin ABG Glucose Oxyhemoglobin Sodium Potassium Chloride Carbon Dioxide BUN Creatinine Glucose POC Glucose 133 H 128 H 129 H Lactic Acid Calcium Phosphorus Magnesium AST ALT Lactate Dehydrogenase CK-MB (CK-2) C-Reactive Protein NT-Pro-B Natriuret Pep Total Protein Albumin Arterial Blood Glucose Urine WBC (Auto) 12/19/19 12/19/19 12/19/19 04:45 04:45 05:35 WBC RBC Hgb Hct MCHC RDW MCV MCH Lymph % (Auto) [place] % (Auto) [place] # Eos # Lymph # (Auto) [place] # (Auto) Eos # (Auto) Seg Neutrophils % Seg Neuts % (Manual) Baso # (Auto) Lymphocytes % (Manual) Monocytes % (Manual) Eosinophils % (Manual) Basophils % (Manual) Seg Neutrophils # Seg Neutrophils # Man Lymphocytes # (Manual) Monocytes # (Manual) Eosinophils # (Manual) Nucleated RBC % Basophils # (Manual) PT INR APTT Heparin Anti-Xa Level 0.17 L ABG pH POC ABG pO2 ABG pO2 ABG HCO3 ABG O2 Saturation ABG Base Excess POC ABG pCO2 ABG Hemoglobin ABG Oxyhemoglobin ABG Glucose Oxyhemoglobin Sodium Potassium Chloride Carbon Dioxide BUN Creatinine Glucose POC Glucose 120 H Lactic Acid Calcium Phosphorus Magnesium AST ALT Lactate Dehydrogenase 228 H CK-MB (CK-2) C-Reactive Protein NT-Pro-B Natriuret Pep Total Protein Albumin Arterial Blood Glucose Urine WBC (Auto) 12/19/19 12/19/19 12/19/19 09:20 11:32 11:32 WBC 14.6 H RBC 3.08 L Hgb 9.0 L Hct 26.8 L MCHC RDW 15.9 H MCV MCH Lymph % (Auto) [place] % (Auto) [place] # Eos # Lymph # (Auto) [place] # (Auto) Eos # (Auto) Seg Neutrophils % Seg Neuts % (Manual) 82.0 H Baso # (Auto) Lymphocytes % (Manual) 10.0 L Monocytes % (Manual) Eosinophils % (Manual) Basophils % (Manual) Seg Neutrophils # Seg Neutrophils # Man 12.0 H Lymphocytes # (Manual) Monocytes # (Manual) 0.9 H Eosinophils # (Manual) Nucleated RBC % 1.0 H Basophils # (Manual) PT INR APTT Heparin Anti-Xa Level ABG pH 7.451 H POC ABG pO2 ABG pO2 62.6 L ABG HCO3 33.2 H ABG O2 Saturation 93.8 L ABG Base Excess 8.3 H POC ABG pCO2 ABG Hemoglobin 8.3 L ABG Oxyhemoglobin ABG Glucose Oxyhemoglobin 91.9 L Sodium Potassium Chloride 95.0 L Carbon Dioxide 33 H BUN 22 H Creatinine 0.6 L Glucose 150 H POC Glucose Lactic Acid Calcium Phosphorus Magnesium AST ALT Lactate Dehydrogenase CK-MB (CK-2) C-Reactive Protein NT-Pro-B Natriuret Pep Total Protein 6.2 L Albumin 2.4 L Arterial Blood Glucose Urine WBC (Auto) 12/19/19 12/19/19 12/20/19 11:56 18:17 00:09 WBC RBC Hgb Hct MCHC RDW MCV MCH Lymph % (Auto) [place] % (Auto) [place] # Eos # Lymph # (Auto) [place] # (Auto) Eos # (Auto) Seg Neutrophils % Seg Neuts % (Manual) Baso # (Auto) Lymphocytes % (Manual) Monocytes % (Manual) Eosinophils % (Manual) Basophils % (Manual) Seg Neutrophils # Seg Neutrophils # Man Lymphocytes # (Manual) Monocytes # (Manual) Eosinophils # (Manual) Nucleated RBC % Basophils # (Manual) PT INR APTT Heparin Anti-Xa Level ABG pH POC ABG pO2 ABG pO2 ABG HCO3 ABG O2 Saturation ABG Base Excess POC ABG pCO2 ABG Hemoglobin ABG Oxyhemoglobin ABG Glucose Oxyhemoglobin Sodium Potassium Chloride Carbon Dioxide BUN Creatinine Glucose POC Glucose 156 H 156 H 155 H Lactic Acid Calcium Phosphorus Magnesium AST ALT Lactate Dehydrogenase CK-MB (CK-2) C-Reactive Protein NT-Pro-B Natriuret Pep Total Protein Albumin Arterial Blood Glucose Urine WBC (Auto) 12/20/19 12/20/19 12/20/19 05:26 06:02 18:17 WBC RBC Hgb Hct MCHC RDW MCV MCH Lymph % (Auto) [place] % (Auto) [place] # Eos # Lymph # (Auto) [place] # (Auto) Eos # (Auto) Seg Neutrophils % Seg Neuts % (Manual) Baso # (Auto) Lymphocytes % (Manual) Monocytes % (Manual) Eosinophils % (Manual) Basophils % (Manual) Seg Neutrophils # Seg Neutrophils # Man Lymphocytes # (Manual) Monocytes # (Manual) Eosinophils # (Manual) Nucleated RBC % Basophils # (Manual) PT INR APTT Heparin Anti-Xa Level 0.19 L ABG pH POC ABG pO2 ABG pO2 ABG HCO3 ABG O2 Saturation ABG Base Excess POC ABG pCO2 ABG Hemoglobin ABG Oxyhemoglobin ABG Glucose Oxyhemoglobin Sodium Potassium Chloride Carbon Dioxide BUN Creatinine Glucose POC Glucose 137 H 128 H Lactic Acid Calcium Phosphorus Magnesium AST ALT Lactate Dehydrogenase CK-MB (CK-2) C-Reactive Protein NT-Pro-B Natriuret Pep Total Protein Albumin Arterial Blood Glucose Urine WBC (Auto) 12/20/19 12/21/19 12/21/19 23:34 05:31 05:31 WBC 12.7 H RBC 3.09 L Hgb 8.9 L Hct 27.4 L MCHC RDW 15.8 H MCV MCH Lymph % (Auto) 12.1 L [place] % (Auto) 7.8 H [place] # Eos # Lymph # (Auto) [place] # (Auto) 1.0 H Eos # (Auto) Seg Neutrophils % 77.1 H Seg Neuts % (Manual) Baso # (Auto) Lymphocytes % (Manual) Monocytes % (Manual) Eosinophils % (Manual) Basophils % (Manual) Seg Neutrophils # 9.8 H Seg Neutrophils # Man Lymphocytes # (Manual) Monocytes # (Manual) Eosinophils # (Manual) Nucleated RBC % Basophils # (Manual) PT INR APTT Heparin Anti-Xa Level ABG pH POC ABG pO2 ABG pO2 ABG HCO3 ABG O2 Saturation ABG Base Excess POC ABG pCO2 ABG Hemoglobin ABG Oxyhemoglobin ABG Glucose Oxyhemoglobin Sodium Potassium Chloride 96.9 L Carbon Dioxide 37 H BUN 27 H Creatinine 0.7 L Glucose 140 H POC Glucose 145 H Lactic Acid Calcium Phosphorus Magnesium AST ALT Lactate Dehydrogenase CK-MB (CK-2) C-Reactive Protein NT-Pro-B Natriuret Pep Total Protein Albumin Arterial Blood Glucose Urine WBC (Auto) 12/21/19 12/21/19 12/21/19 05:38 10:13 11:51 WBC RBC Hgb Hct MCHC RDW MCV MCH Lymph % (Auto) [place] % (Auto) [place] # Eos # Lymph # (Auto) [place] # (Auto) Eos # (Auto) Seg Neutrophils % Seg Neuts % (Manual) Baso # (Auto) Lymphocytes % (Manual) Monocytes % (Manual) Eosinophils % (Manual) Basophils % (Manual) Seg Neutrophils # Seg Neutrophils # Man Lymphocytes # (Manual) Monocytes # (Manual) Eosinophils # (Manual) Nucleated RBC % Basophils # (Manual) PT INR APTT 23.9 L Heparin Anti-Xa Level < 0.10 L ABG pH POC ABG pO2 ABG pO2 ABG HCO3 ABG O2 Saturation ABG Base Excess POC ABG pCO2 ABG Hemoglobin ABG Oxyhemoglobin ABG Glucose Oxyhemoglobin Sodium Potassium Chloride Carbon Dioxide BUN Creatinine Glucose POC Glucose 151 H 145 H Lactic Acid Calcium Phosphorus Magnesium AST ALT Lactate Dehydrogenase CK-MB (CK-2) C-Reactive Protein NT-Pro-B Natriuret Pep Total Protein Albumin Arterial Blood Glucose Urine WBC (Auto) 12/21/19 12/22/19 12/22/19 17:16 00:01 01:33 WBC RBC Hgb Hct MCHC RDW MCV MCH Lymph % (Auto) [place] % (Auto) [place] # Eos # Lymph # (Auto) [place] # (Auto) Eos # (Auto) Seg Neutrophils % Seg Neuts % (Manual) Baso # (Auto) Lymphocytes % (Manual) Monocytes % (Manual) Eosinophils % (Manual) Basophils % (Manual) Seg Neutrophils # Seg Neutrophils # Man Lymphocytes # (Manual) Monocytes # (Manual) Eosinophils # (Manual) Nucleated RBC % Basophils # (Manual) PT INR APTT Heparin Anti-Xa Level 0.10 L ABG pH POC ABG pO2 ABG pO2 ABG HCO3 ABG O2 Saturation ABG Base Excess POC ABG pCO2 ABG Hemoglobin ABG Oxyhemoglobin ABG Glucose Oxyhemoglobin Sodium Potassium Chloride Carbon Dioxide BUN Creatinine Glucose POC Glucose 167 H 179 H Lactic Acid Calcium Phosphorus Magnesium AST ALT Lactate Dehydrogenase CK-MB (CK-2) C-Reactive Protein NT-Pro-B Natriuret Pep Total Protein Albumin Arterial Blood Glucose Urine WBC (Auto) 12/22/19 12/22/19 12/22/19 03:22 05:10 05:10 WBC 13.8 H RBC 3.20 L Hgb 8.9 L Hct 28.1 L MCHC RDW 15.9 H MCV MCH Lymph % (Auto) [place] % (Auto) [place] # Eos # Lymph # (Auto) [place] # (Auto) Eos # (Auto) Seg Neutrophils % Seg Neuts % (Manual) Baso # (Auto) Lymphocytes % (Manual) Monocytes % (Manual) Eosinophils % (Manual) Basophils % (Manual) Seg Neutrophils # Seg Neutrophils # Man Lymphocytes # (Manual) Monocytes # (Manual) Eosinophils # (Manual) Nucleated RBC % Basophils # (Manual) PT INR APTT Heparin Anti-Xa Level ABG pH POC ABG pO2 52.3 L ABG pO2 ABG HCO3 ABG O2 Saturation ABG Base Excess POC ABG pCO2 52.9 H ABG Hemoglobin 10.7 L ABG Oxyhemoglobin 84 L ABG Glucose Oxyhemoglobin Sodium Potassium Chloride 96.6 L Carbon Dioxide BUN 25 H Creatinine 0.7 L Glucose 129 H POC Glucose Lactic Acid Calcium Phosphorus Magnesium AST ALT Lactate Dehydrogenase CK-MB (CK-2) C-Reactive Protein NT-Pro-B Natriuret Pep Total Protein Albumin Arterial Blood Glucose Urine WBC (Auto) 12/22/19 12/22/19 12/22/19 05:18 12:32 12:43 WBC RBC Hgb Hct MCHC RDW MCV MCH Lymph % (Auto) [place] % (Auto) [place] # Eos # Lymph # (Auto) [place] # (Auto) Eos # (Auto) Seg Neutrophils % Seg Neuts % (Manual) Baso # (Auto) Lymphocytes % (Manual) Monocytes % (Manual) Eosinophils % (Manual) Basophils % (Manual) Seg Neutrophils # Seg Neutrophils # Man Lymphocytes # (Manual) Monocytes # (Manual) Eosinophils # (Manual) Nucleated RBC % Basophils # (Manual) PT INR APTT Heparin Anti-Xa Level 0.18 L ABG pH POC ABG pO2 ABG pO2 ABG HCO3 ABG O2 Saturation ABG Base Excess POC ABG pCO2 ABG Hemoglobin ABG Oxyhemoglobin ABG Glucose Oxyhemoglobin Sodium Potassium Chloride Carbon Dioxide BUN Creatinine Glucose POC Glucose 131 H 208 H Lactic Acid Calcium Phosphorus Magnesium AST ALT Lactate Dehydrogenase CK-MB (CK-2) C-Reactive Protein NT-Pro-B Natriuret Pep Total Protein Albumin Arterial Blood Glucose Urine WBC (Auto) 12/22/19 12/22/19 12/23/19 17:44 23:20 03:51 WBC 15.2 H RBC 3.43 L Hgb 9.6 L Hct 30.3 L MCHC RDW 15.9 H MCV MCH Lymph % (Auto) [place] % (Auto) [place] # Eos # Lymph # (Auto) [place] # (Auto) Eos # (Auto) Seg Neutrophils % Seg Neuts % (Manual) Baso # (Auto) Lymphocytes % (Manual) Monocytes % (Manual) Eosinophils % (Manual) Basophils % (Manual) Seg Neutrophils # Seg Neutrophils # Man Lymphocytes # (Manual) Monocytes # (Manual) Eosinophils # (Manual) Nucleated RBC % Basophils # (Manual) PT INR APTT Heparin Anti-Xa Level ABG pH POC ABG pO2 ABG pO2 ABG HCO3 ABG O2 Saturation ABG Base Excess POC ABG pCO2 ABG Hemoglobin ABG Oxyhemoglobin ABG Glucose Oxyhemoglobin Sodium Potassium Chloride Carbon Dioxide BUN Creatinine Glucose POC Glucose 209 H 119 H Lactic Acid Calcium Phosphorus Magnesium AST ALT Lactate Dehydrogenase CK-MB (CK-2) C-Reactive Protein NT-Pro-B Natriuret Pep Total Protein Albumin Arterial Blood Glucose Urine WBC (Auto) 12/23/19 12/23/19 12/23/19 03:51 05:31 12:09 WBC RBC Hgb Hct MCHC RDW MCV MCH Lymph % (Auto) [place] % (Auto) [place] # Eos # Lymph # (Auto) [place] # (Auto) Eos # (Auto) Seg Neutrophils % Seg Neuts % (Manual) Baso # (Auto) Lymphocytes % (Manual) Monocytes % (Manual) Eosinophils % (Manual) Basophils % (Manual) Seg Neutrophils # Seg Neutrophils # Man Lymphocytes # (Manual) Monocytes # (Manual) Eosinophils # (Manual) Nucleated RBC % Basophils # (Manual) PT INR APTT Heparin Anti-Xa Level ABG pH POC ABG pO2 ABG pO2 ABG HCO3 ABG O2 Saturation ABG Base Excess POC ABG pCO2 ABG Hemoglobin ABG Oxyhemoglobin ABG Glucose Oxyhemoglobin Sodium Potassium Chloride 97.2 L Carbon Dioxide 31 H BUN 23 H Creatinine 0.6 L Glucose 153 H POC Glucose 149 H 144 H Lactic Acid Calcium Phosphorus Magnesium AST ALT Lactate Dehydrogenase CK-MB (CK-2) C-Reactive Protein NT-Pro-B Natriuret Pep Total Protein Albumin Arterial Blood Glucose Urine WBC (Auto) 12/23/19 12/23/19 12/23/19 15:30 17:49 23:31 WBC RBC Hgb Hct MCHC RDW MCV MCH Lymph % (Auto) [place] % (Auto) [place] # Eos # Lymph # (Auto) [place] # (Auto) Eos # (Auto) Seg Neutrophils % Seg Neuts % (Manual) Baso # (Auto) Lymphocytes % (Manual) Monocytes % (Manual) Eosinophils % (Manual) Basophils % (Manual) Seg Neutrophils # Seg Neutrophils # Man Lymphocytes # (Manual) Monocytes # (Manual) Eosinophils # (Manual) Nucleated RBC % Basophils # (Manual) PT INR APTT Heparin Anti-Xa Level 0.21 L ABG pH POC ABG pO2 ABG pO2 ABG HCO3 ABG O2 Saturation ABG Base Excess POC ABG pCO2 ABG Hemoglobin ABG Oxyhemoglobin ABG Glucose Oxyhemoglobin Sodium Potassium Chloride Carbon Dioxide BUN Creatinine Glucose POC Glucose 192 H 151 H Lactic Acid Calcium Phosphorus Magnesium AST ALT Lactate Dehydrogenase CK-MB (CK-2) C-Reactive Protein NT-Pro-B Natriuret Pep Total Protein Albumin Arterial Blood Glucose Urine WBC (Auto) 12/24/19 12/24/19 12/24/19 05:34 12:13 16:50 WBC RBC Hgb Hct MCHC RDW MCV MCH Lymph % (Auto) [place] % (Auto) [place] # Eos # Lymph # (Auto) [place] # (Auto) Eos # (Auto) Seg Neutrophils % Seg Neuts % (Manual) Baso # (Auto) Lymphocytes % (Manual) Monocytes % (Manual) Eosinophils % (Manual) Basophils % (Manual) Seg Neutrophils # Seg Neutrophils # Man Lymphocytes # (Manual) Monocytes # (Manual) Eosinophils # (Manual) Nucleated RBC % Basophils # (Manual) PT INR APTT Heparin Anti-Xa Level 0.16 L ABG pH POC ABG pO2 ABG pO2 ABG HCO3 ABG O2 Saturation ABG Base Excess POC ABG pCO2 ABG Hemoglobin ABG Oxyhemoglobin ABG Glucose Oxyhemoglobin Sodium Potassium Chloride Carbon Dioxide BUN Creatinine Glucose POC Glucose 145 H 124 H Lactic Acid Calcium Phosphorus Magnesium AST ALT Lactate Dehydrogenase CK-MB (CK-2) C-Reactive Protein NT-Pro-B Natriuret Pep Total Protein Albumin Arterial Blood Glucose Urine WBC (Auto) 12/24/19 12/25/19 12/25/19 17:53 00:14 04:18 WBC 12.9 H RBC 3.30 L Hgb 9.1 L Hct 28.8 L MCHC RDW 16.4 H MCV MCH Lymph % (Auto) [place] % (Auto) 7.8 H [place] # Eos # Lymph # (Auto) [place] # (Auto) 1.0 H Eos # (Auto) Seg Neutrophils % 75.5 H Seg Neuts % (Manual) Baso # (Auto) Lymphocytes % (Manual) Monocytes % (Manual) Eosinophils % (Manual) Basophils % (Manual) Seg Neutrophils # 9.7 H Seg Neutrophils # Man Lymphocytes # (Manual) Monocytes # (Manual) Eosinophils # (Manual) Nucleated RBC % Basophils # (Manual) PT INR APTT Heparin Anti-Xa Level ABG pH POC ABG pO2 ABG pO2 ABG HCO3 ABG O2 Saturation ABG Base Excess POC ABG pCO2 ABG Hemoglobin ABG Oxyhemoglobin ABG Glucose Oxyhemoglobin Sodium Potassium Chloride Carbon Dioxide BUN Creatinine Glucose POC Glucose 164 H 148 H Lactic Acid Calcium Phosphorus Magnesium AST ALT Lactate Dehydrogenase CK-MB (CK-2) C-Reactive Protein NT-Pro-B Natriuret Pep Total Protein Albumin Arterial Blood Glucose Urine WBC (Auto) 12/25/19 12/25/19 12/25/19 04:18 05:38 11:44 WBC RBC Hgb Hct MCHC RDW MCV MCH Lymph % (Auto) [place] % (Auto) [place] # Eos # Lymph # (Auto) [place] # (Auto) Eos # (Auto) Seg Neutrophils % Seg Neuts % (Manual) Baso # (Auto) Lymphocytes % (Manual) Monocytes % (Manual) Eosinophils % (Manual) Basophils % (Manual) Seg Neutrophils # Seg Neutrophils # Man Lymphocytes # (Manual) Monocytes # (Manual) Eosinophils # (Manual) Nucleated RBC % Basophils # (Manual) PT INR APTT Heparin Anti-Xa Level ABG pH POC ABG pO2 ABG pO2 ABG HCO3 ABG O2 Saturation ABG Base Excess POC ABG pCO2 ABG Hemoglobin ABG Oxyhemoglobin ABG Glucose Oxyhemoglobin Sodium Potassium Chloride Carbon Dioxide 33 H BUN 27 H Creatinine 0.6 L Glucose 132 H POC Glucose 152 H 166 H Lactic Acid Calcium Phosphorus Magnesium AST ALT Lactate Dehydrogenase CK-MB (CK-2) C-Reactive Protein NT-Pro-B Natriuret Pep Total Protein Albumin Arterial Blood Glucose Urine WBC (Auto) 12/25/19 12/26/19 12/26/19 18:29 00:17 00:18 WBC RBC Hgb Hct MCHC RDW MCV MCH Lymph % (Auto) [place] % (Auto) [place] # Eos # Lymph # (Auto) [place] # (Auto) Eos # (Auto) Seg Neutrophils % Seg Neuts % (Manual) Baso # (Auto) Lymphocytes % (Manual) Monocytes % (Manual) Eosinophils % (Manual) Basophils % (Manual) Seg Neutrophils # Seg Neutrophils # Man Lymphocytes # (Manual) Monocytes # (Manual) Eosinophils # (Manual) Nucleated RBC % Basophils # (Manual) PT INR APTT Heparin Anti-Xa Level ABG pH POC ABG pO2 ABG pO2 ABG HCO3 ABG O2 Saturation ABG Base Excess POC ABG pCO2 ABG Hemoglobin ABG Oxyhemoglobin ABG Glucose Oxyhemoglobin Sodium Potassium Chloride 97.8 L Carbon Dioxide BUN 25 H Creatinine 0.6 L Glucose 140 H POC Glucose 194 H 151 H Lactic Acid Calcium Phosphorus Magnesium AST ALT Lactate Dehydrogenase CK-MB (CK-2) C-Reactive Protein NT-Pro-B Natriuret Pep Total Protein Albumin Arterial Blood Glucose Urine WBC (Auto) 12/26/19 12/26/19 12/26/19 05:36 11:41 17:50 WBC RBC Hgb Hct MCHC RDW MCV MCH Lymph % (Auto) [place] % (Auto) [place] # Eos # Lymph # (Auto) [place] # (Auto) Eos # (Auto) Seg Neutrophils % Seg Neuts % (Manual) Baso # (Auto) Lymphocytes % (Manual) Monocytes % (Manual) Eosinophils % (Manual) Basophils % (Manual) Seg Neutrophils # Seg Neutrophils # Man Lymphocytes # (Manual) Monocytes # (Manual) Eosinophils # (Manual) Nucleated RBC % Basophils # (Manual) PT INR APTT Heparin Anti-Xa Level ABG pH POC ABG pO2 ABG pO2 ABG HCO3 ABG O2 Saturation ABG Base Excess POC ABG pCO2 ABG Hemoglobin ABG Oxyhemoglobin ABG Glucose Oxyhemoglobin Sodium Potassium Chloride Carbon Dioxide BUN Creatinine Glucose POC Glucose 156 H 148 H 139 H Lactic Acid Calcium Phosphorus Magnesium AST ALT Lactate Dehydrogenase CK-MB (CK-2) C-Reactive Protein NT-Pro-B Natriuret Pep Total Protein Albumin Arterial Blood Glucose Urine WBC (Auto) 12/26/19 12/27/19 12/27/19 23:19 05:34 12:02 WBC RBC Hgb Hct MCHC RDW MCV MCH Lymph % (Auto) [place] % (Auto) [place] # Eos # Lymph # (Auto) [place] # (Auto) Eos # (Auto) Seg Neutrophils % Seg Neuts % (Manual) Baso # (Auto) Lymphocytes % (Manual) Monocytes % (Manual) Eosinophils % (Manual) Basophils % (Manual) Seg Neutrophils # Seg Neutrophils # Man Lymphocytes # (Manual) Monocytes # (Manual) Eosinophils # (Manual) Nucleated RBC % Basophils # (Manual) PT INR APTT Heparin Anti-Xa Level ABG pH POC ABG pO2 ABG pO2 ABG HCO3 ABG O2 Saturation ABG Base Excess POC ABG pCO2 ABG Hemoglobin ABG Oxyhemoglobin ABG Glucose Oxyhemoglobin Sodium Potassium Chloride Carbon Dioxide BUN Creatinine Glucose POC Glucose 161 H 145 H 157 H Lactic Acid Calcium Phosphorus Magnesium AST ALT Lactate Dehydrogenase CK-MB (CK-2) C-Reactive Protein NT-Pro-B Natriuret Pep Total Protein Albumin Arterial Blood Glucose Urine WBC (Auto) 12/27/19 12/27/19 12/27/19 17:35 20:11 23:00 WBC RBC Hgb Hct MCHC RDW MCV MCH Lymph % (Auto) [place] % (Auto) [place] # Eos # Lymph # (Auto) [place] # (Auto) Eos # (Auto) Seg Neutrophils % Seg Neuts % (Manual) Baso # (Auto) Lymphocytes % (Manual) Monocytes % (Manual) Eosinophils % (Manual) Basophils % (Manual) Seg Neutrophils # Seg Neutrophils # Man Lymphocytes # (Manual) Monocytes # (Manual) Eosinophils # (Manual) Nucleated RBC % Basophils # (Manual) PT INR APTT Heparin Anti-Xa Level 0.19 L ABG pH POC ABG pO2 ABG pO2 ABG HCO3 ABG O2 Saturation ABG Base Excess POC ABG pCO2 ABG Hemoglobin ABG Oxyhemoglobin ABG Glucose Oxyhemoglobin Sodium Potassium Chloride Carbon Dioxide BUN Creatinine Glucose POC Glucose 158 H 155 H Lactic Acid Calcium Phosphorus Magnesium AST ALT Lactate Dehydrogenase CK-MB (CK-2) C-Reactive Protein NT-Pro-B Natriuret Pep Total Protein Albumin Arterial Blood Glucose Urine WBC (Auto) 12/27/19 12/28/19 12/28/19 23:45 02:41 02:41 WBC 13.0 H RBC 3.48 L Hgb 9.5 L Hct 30.6 L MCHC 31 L RDW 16.6 H MCV MCH 27 L Lymph % (Auto) 13.0 L [place] % (Auto) 8.0 H [place] # Eos # Lymph # (Auto) [place] # (Auto) 1.0 H Eos # (Auto) Seg Neutrophils % 76.3 H Seg Neuts % (Manual) Baso # (Auto) Lymphocytes % (Manual) Monocytes % (Manual) Eosinophils % (Manual) Basophils % (Manual) Seg Neutrophils # 9.9 H Seg Neutrophils # Man Lymphocytes # (Manual) Monocytes # (Manual) Eosinophils # (Manual) Nucleated RBC % Basophils # (Manual) PT INR APTT Heparin Anti-Xa Level ABG pH POC ABG pO2 ABG pO2 ABG HCO3 ABG O2 Saturation ABG Base Excess POC ABG pCO2 ABG Hemoglobin ABG Oxyhemoglobin ABG Glucose Oxyhemoglobin Sodium Potassium Chloride Carbon Dioxide BUN 22 H Creatinine 0.6 L Glucose 101 H POC Glucose 130 H Lactic Acid Calcium Phosphorus Magnesium AST ALT Lactate Dehydrogenase CK-MB (CK-2) C-Reactive Protein NT-Pro-B Natriuret Pep Total Protein Albumin Arterial Blood Glucose Urine WBC (Auto) 12/28/19 12/28/19 12/28/19 06:00 12:34 18:13 WBC RBC Hgb Hct MCHC RDW MCV MCH Lymph % (Auto) [place] % (Auto) [place] # Eos # Lymph # (Auto) [place] # (Auto) Eos # (Auto) Seg Neutrophils % Seg Neuts % (Manual) Baso # (Auto) Lymphocytes % (Manual) Monocytes % (Manual) Eosinophils % (Manual) Basophils % (Manual) Seg Neutrophils # Seg Neutrophils # Man Lymphocytes # (Manual) Monocytes # (Manual) Eosinophils # (Manual) Nucleated RBC % Basophils # (Manual) PT INR APTT Heparin Anti-Xa Level ABG pH POC ABG pO2 ABG pO2 ABG HCO3 ABG O2 Saturation ABG Base Excess POC ABG pCO2 ABG Hemoglobin ABG Oxyhemoglobin ABG Glucose Oxyhemoglobin Sodium Potassium Chloride Carbon Dioxide BUN Creatinine Glucose POC Glucose 150 H 161 H 128 H Lactic Acid Calcium Phosphorus Magnesium AST ALT Lactate Dehydrogenase CK-MB (CK-2) C-Reactive Protein NT-Pro-B Natriuret Pep Total Protein Albumin Arterial Blood Glucose Urine WBC (Auto) 12/28/19 12/29/19 12/29/19 23:36 05:21 11:40 WBC RBC Hgb Hct MCHC RDW MCV MCH Lymph % (Auto) [place] % (Auto) [place] # Eos # Lymph # (Auto) [place] # (Auto) Eos # (Auto) Seg Neutrophils % Seg Neuts % (Manual) Baso # (Auto) Lymphocytes % (Manual) Monocytes % (Manual) Eosinophils % (Manual) Basophils % (Manual) Seg Neutrophils # Seg Neutrophils # Man Lymphocytes # (Manual) Monocytes # (Manual) Eosinophils # (Manual) Nucleated RBC % Basophils # (Manual) PT INR APTT Heparin Anti-Xa Level ABG pH POC ABG pO2 ABG pO2 ABG HCO3 ABG O2 Saturation ABG Base Excess POC ABG pCO2 ABG Hemoglobin ABG Oxyhemoglobin ABG Glucose Oxyhemoglobin Sodium Potassium Chloride Carbon Dioxide BUN Creatinine Glucose POC Glucose 137 H 136 H 166 H Lactic Acid Calcium Phosphorus Magnesium AST ALT Lactate Dehydrogenase CK-MB (CK-2) C-Reactive Protein NT-Pro-B Natriuret Pep Total Protein Albumin Arterial Blood Glucose Urine WBC (Auto) 12/29/19 12/29/19 12/29/19 17:23 19:21 23:38 WBC RBC Hgb Hct MCHC RDW MCV MCH Lymph % (Auto) [place] % (Auto) [place] # Eos # Lymph # (Auto) [place] # (Auto) Eos # (Auto) Seg Neutrophils % Seg Neuts % (Manual) Baso # (Auto) Lymphocytes % (Manual) Monocytes % (Manual) Eosinophils % (Manual) Basophils % (Manual) Seg Neutrophils # Seg Neutrophils # Man Lymphocytes # (Manual) Monocytes # (Manual) Eosinophils # (Manual) Nucleated RBC % Basophils # (Manual) PT INR APTT Heparin Anti-Xa Level 0.20 L ABG pH POC ABG pO2 ABG pO2 ABG HCO3 ABG O2 Saturation ABG Base Excess POC ABG pCO2 ABG Hemoglobin ABG Oxyhemoglobin ABG Glucose Oxyhemoglobin Sodium Potassium Chloride Carbon Dioxide BUN Creatinine Glucose POC Glucose 144 H 141 H Lactic Acid Calcium Phosphorus Magnesium AST ALT Lactate Dehydrogenase CK-MB (CK-2) C-Reactive Protein NT-Pro-B Natriuret Pep Total Protein Albumin Arterial Blood Glucose Urine WBC (Auto) 12/30/19 12/30/19 12/30/19 03:58 03:58 04:59 WBC RBC 3.54 L Hgb 9.8 L Hct 30.7 L MCHC RDW 16.8 H MCV MCH Lymph % (Auto) [place] % (Auto) [place] # Eos # Lymph # (Auto) [place] # (Auto) Eos # (Auto) Seg Neutrophils % Seg Neuts % (Manual) Baso # (Auto) Lymphocytes % (Manual) Monocytes % (Manual) Eosinophils % (Manual) Basophils % (Manual) Seg Neutrophils # Seg Neutrophils # Man Lymphocytes # (Manual) Monocytes # (Manual) Eosinophils # (Manual) Nucleated RBC % Basophils # (Manual) PT INR APTT Heparin Anti-Xa Level ABG pH POC ABG pO2 ABG pO2 ABG HCO3 29.8 H ABG O2 Saturation ABG Base Excess 4.8 H POC ABG pCO2 ABG Hemoglobin 11.2 L ABG Oxyhemoglobin ABG Glucose Oxyhemoglobin 93.8 L Sodium Potassium Chloride 97.8 L Carbon Dioxide BUN 26 H Creatinine Glucose 168 H POC Glucose Lactic Acid Calcium Phosphorus Magnesium AST ALT Lactate Dehydrogenase CK-MB (CK-2) C-Reactive Protein NT-Pro-B Natriuret Pep Total Protein Albumin Arterial Blood Glucose Urine WBC (Auto) 12/30/19 12/30/19 12/30/19 05:45 11:34 17:28 WBC RBC Hgb Hct MCHC RDW MCV MCH Lymph % (Auto) [place] % (Auto) [place] # Eos # Lymph # (Auto) [place] # (Auto) Eos # (Auto) Seg Neutrophils % Seg Neuts % (Manual) Baso # (Auto) Lymphocytes % (Manual) Monocytes % (Manual) Eosinophils % (Manual) Basophils % (Manual) Seg Neutrophils # Seg Neutrophils # Man Lymphocytes # (Manual) Monocytes # (Manual) Eosinophils # (Manual) Nucleated RBC % Basophils # (Manual) PT INR APTT Heparin Anti-Xa Level ABG pH POC ABG pO2 ABG pO2 ABG HCO3 ABG O2 Saturation ABG Base Excess POC ABG pCO2 ABG Hemoglobin ABG Oxyhemoglobin ABG Glucose Oxyhemoglobin Sodium Potassium Chloride Carbon Dioxide BUN Creatinine Glucose POC Glucose 163 H 180 H 150 H Lactic Acid Calcium Phosphorus Magnesium AST ALT Lactate Dehydrogenase CK-MB (CK-2) C-Reactive Protein NT-Pro-B Natriuret Pep Total Protein Albumin Arterial Blood Glucose Urine WBC (Auto) 12/30/19 12/31/19 12/31/19 23:43 04:55 05:07 WBC RBC Hgb Hct MCHC RDW MCV MCH Lymph % (Auto) [place] % (Auto) [place] # Eos # Lymph # (Auto) [place] # (Auto) Eos # (Auto) Seg Neutrophils % Seg Neuts % (Manual) Baso # (Auto) Lymphocytes % (Manual) Monocytes % (Manual) Eosinophils % (Manual) Basophils % (Manual) Seg Neutrophils # Seg Neutrophils # Man Lymphocytes # (Manual) Monocytes # (Manual) Eosinophils # (Manual) Nucleated RBC % Basophils # (Manual) PT INR APTT Heparin Anti-Xa Level ABG pH POC ABG pO2 ABG pO2 ABG HCO3 ABG O2 Saturation ABG Base Excess POC ABG pCO2 ABG Hemoglobin ABG Oxyhemoglobin ABG Glucose Oxyhemoglobin Sodium Potassium 5.6 H D Chloride Carbon Dioxide BUN 33 H Creatinine Glucose 131 H POC Glucose 142 H 134 H Lactic Acid Calcium Phosphorus Magnesium AST ALT Lactate Dehydrogenase CK-MB (CK-2) C-Reactive Protein NT-Pro-B Natriuret Pep Total Protein Albumin Arterial Blood Glucose Urine WBC (Auto) 12/31/19 12/31/19 12/31/19 11:30 17:19 17:36 WBC RBC Hgb Hct MCHC RDW MCV MCH Lymph % (Auto) [place] % (Auto) [place] # Eos # Lymph # (Auto) [place] # (Auto) Eos # (Auto) Seg Neutrophils % Seg Neuts % (Manual) Baso # (Auto) Lymphocytes % (Manual) Monocytes % (Manual) Eosinophils % (Manual) Basophils % (Manual) Seg Neutrophils # Seg Neutrophils # Man Lymphocytes # (Manual) Monocytes # (Manual) Eosinophils # (Manual) Nucleated RBC % Basophils # (Manual) PT INR APTT Heparin Anti-Xa Level ABG pH POC ABG pO2 ABG pO2 ABG HCO3 ABG O2 Saturation ABG Base Excess POC ABG pCO2 ABG Hemoglobin ABG Oxyhemoglobin ABG Glucose Oxyhemoglobin Sodium Potassium Chloride Carbon Dioxide BUN 35 H Creatinine Glucose 156 H POC Glucose 158 H 181 H Lactic Acid Calcium Phosphorus Magnesium AST ALT Lactate Dehydrogenase CK-MB (CK-2) C-Reactive Protein NT-Pro-B Natriuret Pep Total Protein Albumin Arterial Blood Glucose Urine WBC (Auto) 12/31/19 12/31/19 12/31/19 18:16 19:41 21:53 WBC RBC Hgb Hct MCHC RDW MCV MCH Lymph % (Auto) [place] % (Auto) [place] # Eos # Lymph # (Auto) [place] # (Auto) Eos # (Auto) Seg Neutrophils % Seg Neuts % (Manual) Baso # (Auto) Lymphocytes % (Manual) Monocytes % (Manual) Eosinophils % (Manual) Basophils % (Manual) Seg Neutrophils # Seg Neutrophils # Man Lymphocytes # (Manual) Monocytes # (Manual) Eosinophils # (Manual) Nucleated RBC % Basophils # (Manual) PT INR APTT Heparin Anti-Xa Level 0.20 L ABG pH POC ABG pO2 ABG pO2 ABG HCO3 ABG O2 Saturation ABG Base Excess POC ABG pCO2 ABG Hemoglobin ABG Oxyhemoglobin ABG Glucose Oxyhemoglobin Sodium Potassium Chloride Carbon Dioxide BUN 34 H Creatinine Glucose 169 H POC Glucose 141 H Lactic Acid Calcium Phosphorus Magnesium AST ALT Lactate Dehydrogenase CK-MB (CK-2) C-Reactive Protein NT-Pro-B Natriuret Pep Total Protein Albumin Arterial Blood Glucose Urine WBC (Auto) 12/31/19 01/01/20 01/01/20 23:51 05:17 10:40 WBC RBC Hgb Hct MCHC RDW MCV MCH Lymph % (Auto) [place] % (Auto) [place] # Eos # Lymph # (Auto) [place] # (Auto) Eos # (Auto) Seg Neutrophils % Seg Neuts % (Manual) Baso # (Auto) Lymphocytes % (Manual) Monocytes % (Manual) Eosinophils % (Manual) Basophils % (Manual) Seg Neutrophils # Seg Neutrophils # Man Lymphocytes # (Manual) Monocytes # (Manual) Eosinophils # (Manual) Nucleated RBC % Basophils # (Manual) PT INR APTT Heparin Anti-Xa Level ABG pH POC ABG pO2 ABG pO2 ABG HCO3 ABG O2 Saturation ABG Base Excess POC ABG pCO2 ABG Hemoglobin ABG Oxyhemoglobin ABG Glucose Oxyhemoglobin Sodium Potassium Chloride Carbon Dioxide BUN 31 H Creatinine 0.7 L Glucose 137 H POC Glucose 131 H 155 H Lactic Acid Calcium Phosphorus Magnesium AST 73 H ALT 97 H Lactate Dehydrogenase CK-MB (CK-2) C-Reactive Protein NT-Pro-B Natriuret Pep 3866 H Total Protein Albumin 2.8 L Arterial Blood Glucose Urine WBC (Auto) 01/01/20 01/01/20 01/01/20 12:26 15:33 17:53 WBC 14.3 H RBC 3.35 L Hgb 9.1 L Hct 28.8 L MCHC RDW 17.0 H MCV MCH 27 L Lymph % (Auto) 7.0 L [place] % (Auto) 7.6 H [place] # Eos # Lymph # (Auto) 1.0 L [place] # (Auto) 1.1 H Eos # (Auto) Seg Neutrophils % 83.3 H Seg Neuts % (Manual) Baso # (Auto) Lymphocytes % (Manual) Monocytes % (Manual) Eosinophils % (Manual) Basophils % (Manual) Seg Neutrophils # 12.0 H Seg Neutrophils # Man Lymphocytes # (Manual) Monocytes # (Manual) Eosinophils # (Manual) Nucleated RBC % Basophils # (Manual) PT INR APTT Heparin Anti-Xa Level ABG pH POC ABG pO2 ABG pO2 ABG HCO3 ABG O2 Saturation ABG Base Excess POC ABG pCO2 ABG Hemoglobin ABG Oxyhemoglobin ABG Glucose Oxyhemoglobin Sodium Potassium Chloride Carbon Dioxide BUN Creatinine Glucose POC Glucose 128 H 128 H Lactic Acid Calcium Phosphorus Magnesium AST ALT Lactate Dehydrogenase CK-MB (CK-2) C-Reactive Protein NT-Pro-B Natriuret Pep Total Protein Albumin Arterial Blood Glucose Urine WBC (Auto) 01/01/20 01/02/20 01/02/20 23:04 05:39 07:00 WBC RBC Hgb Hct MCHC RDW MCV MCH Lymph % (Auto) [place] % (Auto) [place] # Eos # Lymph # (Auto) [place] # (Auto) Eos # (Auto) Seg Neutrophils % Seg Neuts % (Manual) Baso # (Auto) Lymphocytes % (Manual) Monocytes % (Manual) Eosinophils % (Manual) Basophils % (Manual) Seg Neutrophils # Seg Neutrophils # Man Lymphocytes # (Manual) Monocytes # (Manual) Eosinophils # (Manual) Nucleated RBC % Basophils # (Manual) PT INR APTT Heparin Anti-Xa Level 0.13 L ABG pH POC ABG pO2 ABG pO2 ABG HCO3 ABG O2 Saturation ABG Base Excess POC ABG pCO2 ABG Hemoglobin ABG Oxyhemoglobin ABG Glucose Oxyhemoglobin Sodium Potassium Chloride Carbon Dioxide BUN Creatinine Glucose POC Glucose 120 H 169 H Lactic Acid Calcium Phosphorus Magnesium AST ALT Lactate Dehydrogenase CK-MB (CK-2) C-Reactive Protein NT-Pro-B Natriuret Pep Total Protein Albumin Arterial Blood Glucose Urine WBC (Auto) 01/02/20 01/02/20 01/02/20 12:15 14:06 17:58 WBC RBC Hgb Hct MCHC RDW MCV MCH Lymph % (Auto) [place] % (Auto) [place] # Eos # Lymph # (Auto) [place] # (Auto) Eos # (Auto) Seg Neutrophils % Seg Neuts % (Manual) Baso # (Auto) Lymphocytes % (Manual) Monocytes % (Manual) Eosinophils % (Manual) Basophils % (Manual) Seg Neutrophils # Seg Neutrophils # Man Lymphocytes # (Manual) Monocytes # (Manual) Eosinophils # (Manual) Nucleated RBC % Basophils # (Manual) PT INR APTT Heparin Anti-Xa Level < 0.10 L ABG pH POC ABG pO2 ABG pO2 ABG HCO3 ABG O2 Saturation ABG Base Excess POC ABG pCO2 ABG Hemoglobin ABG Oxyhemoglobin ABG Glucose Oxyhemoglobin Sodium Potassium Chloride Carbon Dioxide BUN Creatinine Glucose POC Glucose 190 H 198 H Lactic Acid Calcium Phosphorus Magnesium AST ALT Lactate Dehydrogenase CK-MB (CK-2) C-Reactive Protein NT-Pro-B Natriuret Pep Total Protein Albumin Arterial Blood Glucose Urine WBC (Auto) 01/02/20 01/02/20 01/03/20 21:43 23:33 05:42 WBC RBC Hgb Hct MCHC RDW MCV MCH Lymph % (Auto) [place] % (Auto) [place] # Eos # Lymph # (Auto) [place] # (Auto) Eos # (Auto) Seg Neutrophils % Seg Neuts % (Manual) Baso # (Auto) Lymphocytes % (Manual) Monocytes % (Manual) Eosinophils % (Manual) Basophils % (Manual) Seg Neutrophils # Seg Neutrophils # Man Lymphocytes # (Manual) Monocytes # (Manual) Eosinophils # (Manual) Nucleated RBC % Basophils # (Manual) PT INR APTT Heparin Anti-Xa Level 0.10 L ABG pH POC ABG pO2 ABG pO2 ABG HCO3 ABG O2 Saturation ABG Base Excess POC ABG pCO2 ABG Hemoglobin ABG Oxyhemoglobin ABG Glucose Oxyhemoglobin Sodium Potassium Chloride Carbon Dioxide BUN Creatinine Glucose POC Glucose 180 H 163 H Lactic Acid Calcium Phosphorus Magnesium AST ALT Lactate Dehydrogenase CK-MB (CK-2) C-Reactive Protein NT-Pro-B Natriuret Pep Total Protein Albumin Arterial Blood Glucose Urine WBC (Auto) 01/03/20 01/03/20 01/03/20 06:50 07:25 07:45 WBC 12.1 H RBC 3.35 L Hgb 9.0 L Hct 28.9 L MCHC 31 L RDW 16.6 H MCV MCH 27 L Lymph % (Auto) 13.0 L [place] % (Auto) 8.6 H [place] # Eos # Lymph # (Auto) [place] # (Auto) 1.0 H Eos # (Auto) Seg Neutrophils % 75.9 H Seg Neuts % (Manual) Baso # (Auto) Lymphocytes % (Manual) Monocytes % (Manual) Eosinophils % (Manual) Basophils % (Manual) Seg Neutrophils # 9.2 H Seg Neutrophils # Man Lymphocytes # (Manual) Monocytes # (Manual) Eosinophils # (Manual) Nucleated RBC % Basophils # (Manual) PT INR APTT Heparin Anti-Xa Level 0.29 L ABG pH POC ABG pO2 ABG pO2 ABG HCO3 ABG O2 Saturation ABG Base Excess POC ABG pCO2 ABG Hemoglobin ABG Oxyhemoglobin ABG Glucose Oxyhemoglobin Sodium Potassium 3.3 L D Chloride Carbon Dioxide 35 H D BUN 23 H Creatinine 0.6 L Glucose 149 H POC Glucose Lactic Acid Calcium Phosphorus Magnesium AST ALT 88 H Lactate Dehydrogenase CK-MB (CK-2) C-Reactive Protein NT-Pro-B Natriuret Pep Total Protein 6.2 L Albumin 2.9 L Arterial Blood Glucose Urine WBC (Auto) 01/03/20 01/03/20 01/03/20 12:05 17:42 18:30 WBC RBC Hgb Hct MCHC RDW MCV MCH Lymph % (Auto) [place] % (Auto) [place] # Eos # Lymph # (Auto) [place] # (Auto) Eos # (Auto) Seg Neutrophils % Seg Neuts % (Manual) Baso # (Auto) Lymphocytes % (Manual) Monocytes % (Manual) Eosinophils % (Manual) Basophils % (Manual) Seg Neutrophils # Seg Neutrophils # Man Lymphocytes # (Manual) Monocytes # (Manual) Eosinophils # (Manual) Nucleated RBC % Basophils # (Manual) PT INR APTT Heparin Anti-Xa Level ABG pH POC ABG pO2 ABG pO2 70.7 L ABG HCO3 36.1 H ABG O2 Saturation 94.4 L ABG Base Excess 10.0 H POC ABG pCO2 ABG Hemoglobin 9.7 L ABG Oxyhemoglobin ABG Glucose Oxyhemoglobin 91.8 L Sodium Potassium Chloride Carbon Dioxide BUN Creatinine Glucose POC Glucose 128 H 132 H Lactic Acid Calcium Phosphorus Magnesium AST ALT Lactate Dehydrogenase CK-MB (CK-2) C-Reactive Protein NT-Pro-B Natriuret Pep Total Protein Albumin Arterial Blood Glucose Urine WBC (Auto) 01/04/20 01/04/20 01/04/20 00:10 04:26 05:23 WBC RBC Hgb Hct MCHC RDW MCV MCH Lymph % (Auto) [place] % (Auto) [place] # Eos # Lymph # (Auto) [place] # (Auto) Eos # (Auto) Seg Neutrophils % Seg Neuts % (Manual) Baso # (Auto) Lymphocytes % (Manual) Monocytes % (Manual) Eosinophils % (Manual) Basophils % (Manual) Seg Neutrophils # Seg Neutrophils # Man Lymphocytes # (Manual) Monocytes # (Manual) Eosinophils # (Manual) Nucleated RBC % Basophils # (Manual) PT INR APTT Heparin Anti-Xa Level 0.16 L ABG pH POC ABG pO2 ABG pO2 ABG HCO3 ABG O2 Saturation ABG Base Excess POC ABG pCO2 ABG Hemoglobin ABG Oxyhemoglobin ABG Glucose Oxyhemoglobin Sodium Potassium Chloride Carbon Dioxide BUN Creatinine Glucose POC Glucose 121 H 119 H Lactic Acid Calcium Phosphorus Magnesium AST ALT Lactate Dehydrogenase CK-MB (CK-2) C-Reactive Protein NT-Pro-B Natriuret Pep Total Protein Albumin Arterial Blood Glucose Urine WBC (Auto) 01/04/20 01/04/20 01/04/20 09:50 09:50 12:18 WBC 15.4 H RBC 3.30 L Hgb 8.7 L Hct 28.2 L MCHC 31 L RDW 17.0 H MCV MCH 26 L Lymph % (Auto) [place] % (Auto) 7.6 H [place] # Eos # Lymph # (Auto) [place] # (Auto) 1.2 H Eos # (Auto) Seg Neutrophils % 75.4 H Seg Neuts % (Manual) Baso # (Auto) Lymphocytes % (Manual) Monocytes % (Manual) Eosinophils % (Manual) Basophils % (Manual) Seg Neutrophils # 11.6 H Seg Neutrophils # Man Lymphocytes # (Manual) Monocytes # (Manual) Eosinophils # (Manual) Nucleated RBC % Basophils # (Manual) PT INR APTT Heparin Anti-Xa Level ABG pH POC ABG pO2 ABG pO2 ABG HCO3 ABG O2 Saturation ABG Base Excess POC ABG pCO2 ABG Hemoglobin ABG Oxyhemoglobin ABG Glucose Oxyhemoglobin Sodium 148 H Potassium 3.5 L Chloride Carbon Dioxide 32 H BUN Creatinine 0.6 L Glucose 114 H POC Glucose 111 H Lactic Acid Calcium Phosphorus Magnesium AST ALT 59 H Lactate Dehydrogenase CK-MB (CK-2) C-Reactive Protein NT-Pro-B Natriuret Pep Total Protein Albumin 2.6 L Arterial Blood Glucose Urine WBC (Auto) 01/05/20 01/05/20 01/05/20 04:05 04:05 05:19 WBC 11.7 H RBC 3.50 L Hgb 9.3 L Hct 29.9 L MCHC 31 L RDW 16.6 H MCV MCH 27 L Lymph % (Auto) 13.1 L [place] % (Auto) 9.7 H [place] # Eos # Lymph # (Auto) [place] # (Auto) 1.1 H Eos # (Auto) Seg Neutrophils % 74.0 H Seg Neuts % (Manual) Baso # (Auto) Lymphocytes % (Manual) Monocytes % (Manual) Eosinophils % (Manual) Basophils % (Manual) Seg Neutrophils # 8.6 H Seg Neutrophils # Man Lymphocytes # (Manual) Monocytes # (Manual) Eosinophils # (Manual) Nucleated RBC % Basophils # (Manual) PT INR APTT Heparin Anti-Xa Level ABG pH POC ABG pO2 ABG pO2 ABG HCO3 ABG O2 Saturation ABG Base Excess POC ABG pCO2 ABG Hemoglobin ABG Oxyhemoglobin ABG Glucose Oxyhemoglobin Sodium 151 H Potassium Chloride Carbon Dioxide 34 H BUN Creatinine 0.7 L Glucose POC Glucose 112 H Lactic Acid Calcium Phosphorus Magnesium AST ALT 59 H Lactate Dehydrogenase CK-MB (CK-2) C-Reactive Protein NT-Pro-B Natriuret Pep Total Protein 5.8 L Albumin 2.6 L Arterial Blood Glucose Urine WBC (Auto) 01/05/20 01/06/20 01/06/20 16:04 00:23 04:44 WBC RBC 3.36 L Hgb 8.9 L Hct 28.7 L MCHC 31 L RDW 16.9 H MCV MCH 26 L Lymph % (Auto) [place] % (Auto) 9.4 H [place] # Eos # Lymph # (Auto) [place] # (Auto) Eos # (Auto) Seg Neutrophils % Seg Neuts % (Manual) Baso # (Auto) Lymphocytes % (Manual) Monocytes % (Manual) Eosinophils % (Manual) Basophils % (Manual) Seg Neutrophils # Seg Neutrophils # Man Lymphocytes # (Manual) Monocytes # (Manual) Eosinophils # (Manual) Nucleated RBC % Basophils # (Manual) PT INR APTT Heparin Anti-Xa Level ABG pH POC ABG pO2 ABG pO2 ABG HCO3 ABG O2 Saturation ABG Base Excess POC ABG pCO2 ABG Hemoglobin ABG Oxyhemoglobin ABG Glucose Oxyhemoglobin Sodium 151 H Potassium 3.2 L Chloride Carbon Dioxide 34 H BUN Creatinine 0.6 L Glucose POC Glucose 107 H Lactic Acid Calcium Phosphorus Magnesium AST ALT Lactate Dehydrogenase CK-MB (CK-2) C-Reactive Protein NT-Pro-B Natriuret Pep Total Protein Albumin Arterial Blood Glucose Urine WBC (Auto) 01/06/20 01/06/20 01/06/20 04:44 05:33 12:04 WBC RBC Hgb Hct MCHC RDW MCV MCH Lymph % (Auto) [place] % (Auto) [place] # Eos # Lymph # (Auto) [place] # (Auto) Eos # (Auto) Seg Neutrophils % Seg Neuts % (Manual) Baso # (Auto) Lymphocytes % (Manual) Monocytes % (Manual) Eosinophils % (Manual) Basophils % (Manual) Seg Neutrophils # Seg Neutrophils # Man Lymphocytes # (Manual) Monocytes # (Manual) Eosinophils # (Manual) Nucleated RBC % Basophils # (Manual) PT INR APTT Heparin Anti-Xa Level ABG pH POC ABG pO2 ABG pO2 ABG HCO3 ABG O2 Saturation ABG Base Excess POC ABG pCO2 ABG Hemoglobin ABG Oxyhemoglobin ABG Glucose Oxyhemoglobin Sodium 151 H Potassium 3.4 L Chloride Carbon Dioxide 33 H BUN Creatinine 0.6 L Glucose 118 H POC Glucose 118 H 123 H Lactic Acid Calcium Phosphorus Magnesium AST ALT Lactate Dehydrogenase CK-MB (CK-2) C-Reactive Protein NT-Pro-B Natriuret Pep Total Protein 6.2 L Albumin 2.6 L Arterial Blood Glucose Urine WBC (Auto) 01/06/20 01/07/20 01/07/20 17:54 00:06 04:10 WBC RBC 3.42 L Hgb 8.9 L Hct 29.0 L MCHC 31 L RDW 17.1 H MCV MCH 26 L Lymph % (Auto) [place] % (Auto) 8.4 H [place] # Eos # Lymph # (Auto) [place] # (Auto) Eos # (Auto) Seg Neutrophils % Seg Neuts % (Manual) Baso # (Auto) Lymphocytes % (Manual) Monocytes % (Manual) Eosinophils % (Manual) Basophils % (Manual) Seg Neutrophils # Seg Neutrophils # Man Lymphocytes # (Manual) Monocytes # (Manual) Eosinophils # (Manual) Nucleated RBC % Basophils # (Manual) PT INR APTT Heparin Anti-Xa Level ABG pH POC ABG pO2 ABG pO2 ABG HCO3 ABG O2 Saturation ABG Base Excess POC ABG pCO2 ABG Hemoglobin ABG Oxyhemoglobin ABG Glucose Oxyhemoglobin Sodium Potassium Chloride Carbon Dioxide BUN Creatinine Glucose POC Glucose 112 H 126 H Lactic Acid Calcium Phosphorus Magnesium AST ALT Lactate Dehydrogenase CK-MB (CK-2) C-Reactive Protein NT-Pro-B Natriuret Pep Total Protein Albumin Arterial Blood Glucose Urine WBC (Auto) 01/07/20 01/07/20 01/07/20 04:10 05:59 12:27 WBC RBC Hgb Hct MCHC RDW MCV MCH Lymph % (Auto) [place] % (Auto) [place] # Eos # Lymph # (Auto) [place] # (Auto) Eos # (Auto) Seg Neutrophils % Seg Neuts % (Manual) Baso # (Auto) Lymphocytes % (Manual) Monocytes % (Manual) Eosinophils % (Manual) Basophils % (Manual) Seg Neutrophils # Seg Neutrophils # Man Lymphocytes # (Manual) Monocytes # (Manual) Eosinophils # (Manual) Nucleated RBC % Basophils # (Manual) PT INR APTT Heparin Anti-Xa Level ABG pH POC ABG pO2 ABG pO2 ABG HCO3 ABG O2 Saturation ABG Base Excess POC ABG pCO2 ABG Hemoglobin ABG Oxyhemoglobin ABG Glucose Oxyhemoglobin Sodium 153 H Potassium 3.5 L Chloride Carbon Dioxide 34 H BUN Creatinine 0.6 L Glucose 121 H POC Glucose 121 H 126 H Lactic Acid Calcium Phosphorus Magnesium AST ALT Lactate Dehydrogenase CK-MB (CK-2) C-Reactive Protein NT-Pro-B Natriuret Pep Total Protein 5.9 L Albumin 2.4 L Arterial Blood Glucose Urine WBC (Auto) 01/07/20 01/08/20 01/08/20 18:12 00:03 05:41 WBC RBC Hgb Hct MCHC RDW MCV MCH Lymph % (Auto) [place] % (Auto) [place] # Eos # Lymph # (Auto) [place] # (Auto) Eos # (Auto) Seg Neutrophils % Seg Neuts % (Manual) Baso # (Auto) Lymphocytes % (Manual) Monocytes % (Manual) Eosinophils % (Manual) Basophils % (Manual) Seg Neutrophils # Seg Neutrophils # Man Lymphocytes # (Manual) Monocytes # (Manual) Eosinophils # (Manual) Nucleated RBC % Basophils # (Manual) PT INR APTT Heparin Anti-Xa Level ABG pH POC ABG pO2 ABG pO2 ABG HCO3 ABG O2 Saturation ABG Base Excess POC ABG pCO2 ABG Hemoglobin ABG Oxyhemoglobin ABG Glucose Oxyhemoglobin Sodium Potassium Chloride Carbon Dioxide BUN Creatinine Glucose POC Glucose 124 H 130 H 138 H Lactic Acid Calcium Phosphorus Magnesium AST ALT Lactate Dehydrogenase CK-MB (CK-2) C-Reactive Protein NT-Pro-B Natriuret Pep Total Protein Albumin Arterial Blood Glucose Urine WBC (Auto) 01/08/20 01/08/20 01/08/20 09:28 11:42 18:21 WBC RBC Hgb Hct MCHC RDW MCV MCH Lymph % (Auto) [place] % (Auto) [place] # Eos # Lymph # (Auto) [place] # (Auto) Eos # (Auto) Seg Neutrophils % Seg Neuts % (Manual) Baso # (Auto) Lymphocytes % (Manual) Monocytes % (Manual) Eosinophils % (Manual) Basophils % (Manual) Seg Neutrophils # Seg Neutrophils # Man Lymphocytes # (Manual) Monocytes # (Manual) Eosinophils # (Manual) Nucleated RBC % Basophils # (Manual) PT INR APTT Heparin Anti-Xa Level ABG pH POC ABG pO2 ABG pO2 ABG HCO3 ABG O2 Saturation ABG Base Excess POC ABG pCO2 ABG Hemoglobin ABG Oxyhemoglobin ABG Glucose Oxyhemoglobin Sodium Potassium Chloride Carbon Dioxide BUN Creatinine Glucose POC Glucose 181 H 150 H 129 H Lactic Acid Calcium Phosphorus Magnesium AST ALT Lactate Dehydrogenase CK-MB (CK-2) C-Reactive Protein NT-Pro-B Natriuret Pep Total Protein Albumin Arterial Blood Glucose Urine WBC (Auto) 01/08/20 01/08/20 01/09/20 19:25 23:55 04:11 WBC RBC 3.43 L Hgb 8.9 L Hct 28.7 L MCHC 31 L RDW 17.6 H MCV MCH 26 L Lymph % (Auto) [place] % (Auto) 8.6 H [place] # Eos # Lymph # (Auto) [place] # (Auto) Eos # (Auto) Seg Neutrophils % Seg Neuts % (Manual) Baso # (Auto) Lymphocytes % (Manual) Monocytes % (Manual) Eosinophils % (Manual) Basophils % (Manual) Seg Neutrophils # Seg Neutrophils # Man Lymphocytes # (Manual) Monocytes # (Manual) Eosinophils # (Manual) Nucleated RBC % Basophils # (Manual) PT INR APTT Heparin Anti-Xa Level ABG pH POC ABG pO2 ABG pO2 ABG HCO3 ABG O2 Saturation ABG Base Excess POC ABG pCO2 ABG Hemoglobin ABG Oxyhemoglobin ABG Glucose Oxyhemoglobin Sodium Potassium Chloride Carbon Dioxide BUN Creatinine 0.7 L Glucose 117 H POC Glucose 132 H Lactic Acid Calcium Phosphorus Magnesium AST ALT Lactate Dehydrogenase CK-MB (CK-2) C-Reactive Protein NT-Pro-B Natriuret Pep Total Protein Albumin Arterial Blood Glucose Urine WBC (Auto) 01/09/20 01/09/20 01/09/20 04:11 05:38 22:58 WBC RBC Hgb Hct MCHC RDW MCV MCH Lymph % (Auto) [place] % (Auto) [place] # Eos # Lymph # (Auto) [place] # (Auto) Eos # (Auto) Seg Neutrophils % Seg Neuts % (Manual) Baso # (Auto) Lymphocytes % (Manual) Monocytes % (Manual) Eosinophils % (Manual) Basophils % (Manual) Seg Neutrophils # Seg Neutrophils # Man Lymphocytes # (Manual) Monocytes # (Manual) Eosinophils # (Manual) Nucleated RBC % Basophils # (Manual) PT INR APTT Heparin Anti-Xa Level ABG pH POC ABG pO2 ABG pO2 ABG HCO3 ABG O2 Saturation ABG Base Excess POC ABG pCO2 ABG Hemoglobin ABG Oxyhemoglobin ABG Glucose Oxyhemoglobin Sodium 147 H Potassium 3.3 L D Chloride Carbon Dioxide 32 H BUN Creatinine 0.6 L Glucose 106 H POC Glucose 107 H 113 H Lactic Acid Calcium Phosphorus Magnesium AST ALT Lactate Dehydrogenase CK-MB (CK-2) C-Reactive Protein NT-Pro-B Natriuret Pep Total Protein Albumin Arterial Blood Glucose Urine WBC (Auto) 10/18/20 10/18/20 10/18/20 04:05 11:36 17:54 WBC RBC Hgb Hct MCHC RDW MCV MCH Lymph % (Auto) [place] % (Auto) [place] # Eos # Lymph # (Auto) [place] # (Auto) Eos # (Auto) Seg Neutrophils % Seg Neuts % (Manual) Baso # (Auto) Lymphocytes % (Manual) Monocytes % (Manual) Eosinophils % (Manual) Basophils % (Manual) Seg Neutrophils # Seg Neutrophils # Man Lymphocytes # (Manual) Monocytes # (Manual) Eosinophils # (Manual) Nucleated RBC % Basophils # (Manual) PT INR APTT Heparin Anti-Xa Level ABG pH POC ABG pO2 ABG pO2 ABG HCO3 ABG O2 Saturation ABG Base Excess POC ABG pCO2 ABG Hemoglobin ABG Oxyhemoglobin ABG Glucose Oxyhemoglobin Sodium Potassium Chloride Carbon Dioxide BUN Creatinine 0.7 L Glucose 110 H POC Glucose 129 H 117 H Lactic Acid Calcium Phosphorus Magnesium AST ALT Lactate Dehydrogenase CK-MB (CK-2) C-Reactive Protein NT-Pro-B Natriuret Pep Total Protein Albumin Arterial Blood Glucose Urine WBC (Auto) 01/10/20 01/11/20 01/11/20 23:52 03:19 12:09 WBC RBC Hgb Hct MCHC RDW MCV MCH Lymph % (Auto) [place] % (Auto) [place] # Eos # Lymph # (Auto) [place] # (Auto) Eos # (Auto) Seg Neutrophils % Seg Neuts % (Manual) Baso # (Auto) Lymphocytes % (Manual) Monocytes % (Manual) Eosinophils % (Manual) Basophils % (Manual) Seg Neutrophils # Seg Neutrophils # Man Lymphocytes # (Manual) Monocytes # (Manual) Eosinophils # (Manual) Nucleated RBC % Basophils # (Manual) PT INR APTT Heparin Anti-Xa Level ABG pH POC ABG pO2 ABG pO2 ABG HCO3 ABG O2 Saturation ABG Base Excess POC ABG pCO2 ABG Hemoglobin ABG Oxyhemoglobin ABG Glucose Oxyhemoglobin Sodium Potassium Chloride Carbon Dioxide BUN Creatinine Glucose POC Glucose 117 H 136 H 115 H Lactic Acid Calcium Phosphorus Magnesium AST ALT Lactate Dehydrogenase CK-MB (CK-2) C-Reactive Protein NT-Pro-B Natriuret Pep Total Protein Albumin Arterial Blood Glucose Urine WBC (Auto) 01/11/20 01/11/20 01/12/20 18:27 23:28 00:23 WBC RBC Hgb 9.8 L Hct 31.6 L MCHC 31 L RDW 17.8 H MCV 83 L MCH 26 L Lymph % (Auto) [place] % (Auto) 8.0 H [place] # Eos # Lymph # (Auto) [place] # (Auto) Eos # (Auto) Seg Neutrophils % Seg Neuts % (Manual) Baso # (Auto) Lymphocytes % (Manual) Monocytes % (Manual) Eosinophils % (Manual) Basophils % (Manual) Seg Neutrophils # Seg Neutrophils # Man Lymphocytes # (Manual) Monocytes # (Manual) Eosinophils # (Manual) Nucleated RBC % Basophils # (Manual) PT INR APTT Heparin Anti-Xa Level ABG pH POC ABG pO2 ABG pO2 ABG HCO3 ABG O2 Saturation ABG Base Excess POC ABG pCO2 ABG Hemoglobin ABG Oxyhemoglobin ABG Glucose Oxyhemoglobin Sodium Potassium Chloride Carbon Dioxide BUN Creatinine Glucose POC Glucose 118 H 122 H Lactic Acid Calcium Phosphorus Magnesium AST ALT Lactate Dehydrogenase CK-MB (CK-2) C-Reactive Protein NT-Pro-B Natriuret Pep Total Protein Albumin Arterial Blood Glucose Urine WBC (Auto) 01/12/20 01/12/20 01/12/20 00:23 04:18 04:18 WBC RBC Hgb 9.6 L Hct 30.9 L MCHC 31 L RDW 17.3 H MCV 81 L MCH 25 L Lymph % (Auto) [place] % (Auto) [place] # Eos # Lymph # (Auto) [place] # (Auto) Eos # (Auto) Seg Neutrophils % Seg Neuts % (Manual) Baso # (Auto) Lymphocytes % (Manual) Monocytes % (Manual) Eosinophils % (Manual) Basophils % (Manual) Seg Neutrophils # Seg Neutrophils # Man Lymphocytes # (Manual) Monocytes # (Manual) Eosinophils # (Manual) Nucleated RBC % Basophils # (Manual) PT INR APTT Heparin Anti-Xa Level ABG pH POC ABG pO2 ABG pO2 ABG HCO3 ABG O2 Saturation ABG Base Excess POC ABG pCO2 ABG Hemoglobin ABG Oxyhemoglobin ABG Glucose Oxyhemoglobin Sodium Potassium Chloride Carbon Dioxide BUN Creatinine 0.7 L 0.7 L Glucose 111 H 108 H POC Glucose Lactic Acid Calcium Phosphorus Magnesium AST ALT Lactate Dehydrogenase CK-MB (CK-2) C-Reactive Protein NT-Pro-B Natriuret Pep Total Protein Albumin 2.6 L Arterial Blood Glucose Urine WBC (Auto) 01/12/20 01/12/20 01/12/20 06:03 12:27 13:58 WBC RBC Hgb Hct MCHC RDW MCV MCH Lymph % (Auto) [place] % (Auto) [place] # Eos # Lymph # (Auto) [place] # (Auto) Eos # (Auto) Seg Neutrophils % Seg Neuts % (Manual) Baso # (Auto) Lymphocytes % (Manual) Monocytes % (Manual) Eosinophils % (Manual) Basophils % (Manual) Seg Neutrophils # Seg Neutrophils # Man Lymphocytes # (Manual) Monocytes # (Manual) Eosinophils # (Manual) Nucleated RBC % Basophils # (Manual) PT INR APTT Heparin Anti-Xa Level ABG pH 7.453 H POC ABG pO2 76.6 L ABG pO2 ABG HCO3 ABG O2 Saturation ABG Base Excess POC ABG pCO2 ABG Hemoglobin 10.3 L ABG Oxyhemoglobin ABG Glucose 99 H Oxyhemoglobin Sodium Potassium Chloride Carbon Dioxide BUN Creatinine Glucose POC Glucose 128 H 121 H Lactic Acid Calcium Phosphorus Magnesium AST ALT Lactate Dehydrogenase CK-MB (CK-2) C-Reactive Protein NT-Pro-B Natriuret Pep Total Protein Albumin Arterial Blood Glucose 99 H Urine WBC (Auto) 01/12/20 01/13/20 01/13/20 18:24 12:01 17:46 WBC RBC Hgb Hct MCHC RDW MCV MCH Lymph % (Auto) [place] % (Auto) [place] # Eos # Lymph # (Auto) [place] # (Auto) Eos # (Auto) Seg Neutrophils % Seg Neuts % (Manual) Baso # (Auto) Lymphocytes % (Manual) Monocytes % (Manual) Eosinophils % (Manual) Basophils % (Manual) Seg Neutrophils # Seg Neutrophils # Man Lymphocytes # (Manual) Monocytes # (Manual) Eosinophils # (Manual) Nucleated RBC % Basophils # (Manual) PT INR APTT Heparin Anti-Xa Level ABG pH POC ABG pO2 ABG pO2 ABG HCO3 ABG O2 Saturation ABG Base Excess POC ABG pCO2 ABG Hemoglobin ABG Oxyhemoglobin ABG Glucose Oxyhemoglobin Sodium Potassium Chloride Carbon Dioxide BUN Creatinine Glucose POC Glucose 119 H 107 H 124 H Lactic Acid Calcium Phosphorus Magnesium AST ALT Lactate Dehydrogenase CK-MB (CK-2) C-Reactive Protein NT-Pro-B Natriuret Pep Total Protein Albumin Arterial Blood Glucose Urine WBC (Auto) 01/13/20 01/14/20 01/14/20 20:40 00:10 05:33 WBC RBC Hgb Hct MCHC RDW MCV MCH Lymph % (Auto) [place] % (Auto) [place] # Eos # Lymph # (Auto) [place] # (Auto) Eos # (Auto) Seg Neutrophils % Seg Neuts % (Manual) Baso # (Auto) Lymphocytes % (Manual) Monocytes % (Manual) Eosinophils % (Manual) Basophils % (Manual) Seg Neutrophils # Seg Neutrophils # Man Lymphocytes # (Manual) Monocytes # (Manual) Eosinophils # (Manual) Nucleated RBC % Basophils # (Manual) PT INR APTT Heparin Anti-Xa Level ABG pH POC ABG pO2 ABG pO2 65.3 L ABG HCO3 31.8 H ABG O2 Saturation 93.5 L ABG Base Excess 6.7 H POC ABG pCO2 ABG Hemoglobin 13.3 L ABG Oxyhemoglobin ABG Glucose Oxyhemoglobin 90.9 L Sodium Potassium Chloride Carbon Dioxide BUN Creatinine Glucose POC Glucose 111 H 111 H Lactic Acid Calcium Phosphorus Magnesium AST ALT Lactate Dehydrogenase CK-MB (CK-2) C-Reactive Protein NT-Pro-B Natriuret Pep Total Protein Albumin Arterial Blood Glucose Urine WBC (Auto) 01/14/20 01/14/20 01/14/20 12:10 16:14 16:14 WBC RBC Hgb 10.6 L Hct 34.2 L MCHC 31 L RDW 18.3 H MCV 83 L MCH 26 L Lymph % (Auto) [place] % (Auto) 7.4 H [place] # Eos # Lymph # (Auto) [place] # (Auto) Eos # (Auto) Seg Neutrophils % 71.9 H Seg Neuts % (Manual) Baso # (Auto) Lymphocytes % (Manual) Monocytes % (Manual) Eosinophils % (Manual) Basophils % (Manual) Seg Neutrophils # Seg Neutrophils # Man Lymphocytes # (Manual) Monocytes # (Manual) Eosinophils # (Manual) Nucleated RBC % Basophils # (Manual) PT INR APTT Heparin Anti-Xa Level ABG pH POC ABG pO2 ABG pO2 ABG HCO3 ABG O2 Saturation ABG Base Excess POC ABG pCO2 ABG Hemoglobin ABG Oxyhemoglobin ABG Glucose Oxyhemoglobin Sodium Potassium Chloride Carbon Dioxide 31 H BUN Creatinine 0.6 L Glucose 131 H POC Glucose 139 H Lactic Acid Calcium Phosphorus Magnesium AST ALT Lactate Dehydrogenase CK-MB (CK-2) C-Reactive Protein NT-Pro-B Natriuret Pep Total Protein Albumin Arterial Blood Glucose Urine WBC (Auto) 01/14/20 01/15/20 01/15/20 18:05 00:52 05:35 WBC RBC Hgb Hct MCHC RDW MCV MCH Lymph % (Auto) [place] % (Auto) [place] # Eos # Lymph # (Auto) [place] # (Auto) Eos # (Auto) Seg Neutrophils % Seg Neuts % (Manual) Baso # (Auto) Lymphocytes % (Manual) Monocytes % (Manual) Eosinophils % (Manual) Basophils % (Manual) Seg Neutrophils # Seg Neutrophils # Man Lymphocytes # (Manual) Monocytes # (Manual) Eosinophils # (Manual) Nucleated RBC % Basophils # (Manual) PT INR APTT Heparin Anti-Xa Level ABG pH POC ABG pO2 ABG pO2 ABG HCO3 ABG O2 Saturation ABG Base Excess POC ABG pCO2 ABG Hemoglobin ABG Oxyhemoglobin ABG Glucose Oxyhemoglobin Sodium Potassium Chloride Carbon Dioxide BUN Creatinine Glucose POC Glucose 147 H 140 H 159 H Lactic Acid Calcium Phosphorus Magnesium AST ALT Lactate Dehydrogenase CK-MB (CK-2) C-Reactive Protein NT-Pro-B Natriuret Pep Total Protein Albumin Arterial Blood Glucose Urine WBC (Auto) 01/15/20 01/15/20 01/16/20 12:52 17:43 00:32 WBC RBC Hgb Hct MCHC RDW MCV MCH Lymph % (Auto) [place] % (Auto) [place] # Eos # Lymph # (Auto) [place] # (Auto) Eos # (Auto) Seg Neutrophils % Seg Neuts % (Manual) Baso # (Auto) Lymphocytes % (Manual) Monocytes % (Manual) Eosinophils % (Manual) Basophils % (Manual) Seg Neutrophils # Seg Neutrophils # Man Lymphocytes # (Manual) Monocytes # (Manual) Eosinophils # (Manual) Nucleated RBC % Basophils # (Manual) PT INR APTT Heparin Anti-Xa Level ABG pH POC ABG pO2 ABG pO2 ABG HCO3 ABG O2 Saturation ABG Base Excess POC ABG pCO2 ABG Hemoglobin ABG Oxyhemoglobin ABG Glucose Oxyhemoglobin Sodium Potassium Chloride Carbon Dioxide BUN Creatinine Glucose POC Glucose 164 H 167 H 153 H Lactic Acid Calcium Phosphorus Magnesium AST ALT Lactate Dehydrogenase CK-MB (CK-2) C-Reactive Protein NT-Pro-B Natriuret Pep Total Protein Albumin Arterial Blood Glucose Urine WBC (Auto) 01/16/20 01/16/20 01/17/20 05:46 11:48 06:38 WBC RBC Hgb Hct MCHC RDW MCV MCH Lymph % (Auto) [place] % (Auto) [place] # Eos # Lymph # (Auto) [place] # (Auto) Eos # (Auto) Seg Neutrophils % Seg Neuts % (Manual) Baso # (Auto) Lymphocytes % (Manual) Monocytes % (Manual) Eosinophils % (Manual) Basophils % (Manual) Seg Neutrophils # Seg Neutrophils # Man Lymphocytes # (Manual) Monocytes # (Manual) Eosinophils # (Manual) Nucleated RBC % Basophils # (Manual) PT INR APTT Heparin Anti-Xa Level ABG pH POC ABG pO2 ABG pO2 ABG HCO3 ABG O2 Saturation ABG Base Excess POC ABG pCO2 ABG Hemoglobin ABG Oxyhemoglobin ABG Glucose Oxyhemoglobin Sodium Potassium Chloride Carbon Dioxide BUN Creatinine Glucose POC Glucose 163 H 155 H 116 H Lactic Acid Calcium Phosphorus Magnesium AST ALT Lactate Dehydrogenase CK-MB (CK-2) C-Reactive Protein NT-Pro-B Natriuret Pep Total Protein Albumin Arterial Blood Glucose Urine WBC (Auto) 01/17/20 01/17/20 01/18/20 11:36 17:43 00:12 WBC RBC Hgb Hct MCHC RDW MCV MCH Lymph % (Auto) [place] % (Auto) [place] # Eos # Lymph # (Auto) [place] # (Auto) Eos # (Auto) Seg Neutrophils % Seg Neuts % (Manual) Baso # (Auto) Lymphocytes % (Manual) Monocytes % (Manual) Eosinophils % (Manual) Basophils % (Manual) Seg Neutrophils # Seg Neutrophils # Man Lymphocytes # (Manual) Monocytes # (Manual) Eosinophils # (Manual) Nucleated RBC % Basophils # (Manual) PT INR APTT Heparin Anti-Xa Level ABG pH POC ABG pO2 ABG pO2 ABG HCO3 ABG O2 Saturation ABG Base Excess POC ABG pCO2 ABG Hemoglobin ABG Oxyhemoglobin ABG Glucose Oxyhemoglobin Sodium Potassium Chloride Carbon Dioxide BUN Creatinine Glucose POC Glucose 110 H 134 H 108 H Lactic Acid Calcium Phosphorus Magnesium AST ALT Lactate Dehydrogenase CK-MB (CK-2) C-Reactive Protein NT-Pro-B Natriuret Pep Total Protein Albumin Arterial Blood Glucose Urine WBC (Auto) 01/18/20 01/18/20 01/18/20 05:37 06:46 06:46 WBC RBC Hgb 10.1 L Hct 32.2 L MCHC 31 L RDW 18.1 H MCV 81 L MCH 25 L Lymph % (Auto) [place] % (Auto) [place] # Eos # Lymph # (Auto) [place] # (Auto) Eos # (Auto) Seg Neutrophils % 71.9 H Seg Neuts % (Manual) Baso # (Auto) Lymphocytes % (Manual) Monocytes % (Manual) Eosinophils % (Manual) Basophils % (Manual) Seg Neutrophils # Seg Neutrophils # Man Lymphocytes # (Manual) Monocytes # (Manual) Eosinophils # (Manual) Nucleated RBC % Basophils # (Manual) PT INR APTT Heparin Anti-Xa Level ABG pH POC ABG pO2 ABG pO2 ABG HCO3 ABG O2 Saturation ABG Base Excess POC ABG pCO2 ABG Hemoglobin ABG Oxyhemoglobin ABG Glucose Oxyhemoglobin Sodium Potassium Chloride Carbon Dioxide BUN Creatinine 0.7 L Glucose 155 H POC Glucose 168 H Lactic Acid Calcium Phosphorus Magnesium AST ALT Lactate Dehydrogenase CK-MB (CK-2) C-Reactive Protein NT-Pro-B Natriuret Pep Total Protein Albumin Arterial Blood Glucose Urine WBC (Auto) 01/18/20 01/18/20 01/18/20 12:05 17:14 23:28 WBC RBC Hgb Hct MCHC RDW MCV MCH Lymph % (Auto) [place] % (Auto) [place] # Eos # Lymph # (Auto) [place] # (Auto) Eos # (Auto) Seg Neutrophils % Seg Neuts % (Manual) Baso # (Auto) Lymphocytes % (Manual) Monocytes % (Manual) Eosinophils % (Manual) Basophils % (Manual) Seg Neutrophils # Seg Neutrophils # Man Lymphocytes # (Manual) Monocytes # (Manual) Eosinophils # (Manual) Nucleated RBC % Basophils # (Manual) PT INR APTT Heparin Anti-Xa Level ABG pH POC ABG pO2 ABG pO2 ABG HCO3 ABG O2 Saturation ABG Base Excess POC ABG pCO2 ABG Hemoglobin ABG Oxyhemoglobin ABG Glucose Oxyhemoglobin Sodium Potassium Chloride Carbon Dioxide BUN Creatinine Glucose POC Glucose 128 H 126 H 128 H Lactic Acid Calcium Phosphorus Magnesium AST ALT Lactate Dehydrogenase CK-MB (CK-2) C-Reactive Protein NT-Pro-B Natriuret Pep Total Protein Albumin Arterial Blood Glucose Urine WBC (Auto) 01/19/20 01/19/20 01/19/20 05:39 12:33 17:36 WBC RBC Hgb Hct MCHC RDW MCV MCH Lymph % (Auto) [place] % (Auto) [place] # Eos # Lymph # (Auto) [place] # (Auto) Eos # (Auto) Seg Neutrophils % Seg Neuts % (Manual) Baso # (Auto) Lymphocytes % (Manual) Monocytes % (Manual) Eosinophils % (Manual) Basophils % (Manual) Seg Neutrophils # Seg Neutrophils # Man Lymphocytes # (Manual) Monocytes # (Manual) Eosinophils # (Manual) Nucleated RBC % Basophils # (Manual) PT INR APTT Heparin Anti-Xa Level ABG pH POC ABG pO2 ABG pO2 ABG HCO3 ABG O2 Saturation ABG Base Excess POC ABG pCO2 ABG Hemoglobin ABG Oxyhemoglobin ABG Glucose Oxyhemoglobin Sodium Potassium Chloride Carbon Dioxide BUN Creatinine Glucose POC Glucose 164 H 171 H 152 H Lactic Acid Calcium Phosphorus Magnesium AST ALT Lactate Dehydrogenase CK-MB (CK-2) C-Reactive Protein NT-Pro-B Natriuret Pep Total Protein Albumin Arterial Blood Glucose Urine WBC (Auto) 01/20/20 01/20/20 01/20/20 00:12 05:20 05:35 WBC RBC Hgb 9.2 L Hct 29.4 L MCHC 31 L RDW 17.9 H MCV 81 L MCH 25 L Lymph % (Auto) [place] % (Auto) [place] # Eos # Lymph # (Auto) [place] # (Auto) Eos # (Auto) Seg Neutrophils % Seg Neuts % (Manual) Baso # (Auto) Lymphocytes % (Manual) Monocytes % (Manual) Eosinophils % (Manual) Basophils % (Manual) Seg Neutrophils # Seg Neutrophils # Man Lymphocytes # (Manual) Monocytes # (Manual) Eosinophils # (Manual) Nucleated RBC % Basophils # (Manual) PT INR APTT Heparin Anti-Xa Level ABG pH POC ABG pO2 ABG pO2 ABG HCO3 ABG O2 Saturation ABG Base Excess POC ABG pCO2 ABG Hemoglobin ABG Oxyhemoglobin ABG Glucose Oxyhemoglobin Sodium Potassium Chloride Carbon Dioxide BUN Creatinine Glucose POC Glucose 120 H 136 H Lactic Acid Calcium Phosphorus Magnesium AST ALT Lactate Dehydrogenase CK-MB (CK-2) C-Reactive Protein NT-Pro-B Natriuret Pep Total Protein Albumin Arterial Blood Glucose Urine WBC (Auto) 01/20/20 01/20/20 01/20/20 05:40 11:58 14:55 WBC RBC Hgb 9.0 L Hct 28.3 L MCHC RDW MCV MCH Lymph % (Auto) [place] % (Auto) [place] # Eos # Lymph # (Auto) [place] # (Auto) Eos # (Auto) Seg Neutrophils % Seg Neuts % (Manual) Baso # (Auto) Lymphocytes % (Manual) Monocytes % (Manual) Eosinophils % (Manual) Basophils % (Manual) Seg Neutrophils # Seg Neutrophils # Man Lymphocytes # (Manual) Monocytes # (Manual) Eosinophils # (Manual) Nucleated RBC % Basophils # (Manual) PT INR APTT Heparin Anti-Xa Level ABG pH POC ABG pO2 ABG pO2 ABG HCO3 ABG O2 Saturation ABG Base Excess POC ABG pCO2 ABG Hemoglobin ABG Oxyhemoglobin ABG Glucose Oxyhemoglobin Sodium Potassium Chloride Carbon Dioxide 32 H BUN 22 H Creatinine 0.7 L Glucose 128 H POC Glucose 152 H Lactic Acid Calcium Phosphorus Magnesium AST ALT Lactate Dehydrogenase CK-MB (CK-2) C-Reactive Protein NT-Pro-B Natriuret Pep Total Protein Albumin Arterial Blood Glucose Urine WBC (Auto) 01/20/20 01/20/20 01/20/20 14:55 18:14 21:35 WBC RBC Hgb Hct MCHC RDW MCV MCH Lymph % (Auto) [place] % (Auto) [place] # Eos # Lymph # (Auto) [place] # (Auto) Eos # (Auto) Seg Neutrophils % Seg Neuts % (Manual) Baso # (Auto) Lymphocytes % (Manual) Monocytes % (Manual) Eosinophils % (Manual) Basophils % (Manual) Seg Neutrophils # Seg Neutrophils # Man Lymphocytes # (Manual) Monocytes # (Manual) Eosinophils # (Manual) Nucleated RBC % Basophils # (Manual) PT 20.4 H INR 1.72 H APTT 40.6 H Heparin Anti-Xa Level > 2.00 H ABG pH POC ABG pO2 ABG pO2 ABG HCO3 ABG O2 Saturation ABG Base Excess POC ABG pCO2 ABG Hemoglobin ABG Oxyhemoglobin ABG Glucose Oxyhemoglobin Sodium Potassium Chloride Carbon Dioxide BUN Creatinine Glucose POC Glucose 150 H Lactic Acid Calcium Phosphorus Magnesium AST ALT Lactate Dehydrogenase CK-MB (CK-2) C-Reactive Protein NT-Pro-B Natriuret Pep Total Protein Albumin Arterial Blood Glucose Urine WBC (Auto) 01/21/20 01/21/20 01/21/20 00:30 05:47 05:59 WBC RBC Hgb Hct MCHC RDW MCV MCH Lymph % (Auto) [place] % (Auto) [place] # Eos # Lymph # (Auto) [place] # (Auto) Eos # (Auto) Seg Neutrophils % Seg Neuts % (Manual) Baso # (Auto) Lymphocytes % (Manual) Monocytes % (Manual) Eosinophils % (Manual) Basophils % (Manual) Seg Neutrophils # Seg Neutrophils # Man Lymphocytes # (Manual) Monocytes # (Manual) Eosinophils # (Manual) Nucleated RBC % Basophils # (Manual) PT INR APTT Heparin Anti-Xa Level 1.93 H ABG pH POC ABG pO2 ABG pO2 ABG HCO3 ABG O2 Saturation ABG Base Excess POC ABG pCO2 ABG Hemoglobin ABG Oxyhemoglobin ABG Glucose Oxyhemoglobin Sodium Potassium Chloride Carbon Dioxide BUN Creatinine Glucose POC Glucose 126 H 148 H Lactic Acid Calcium Phosphorus Magnesium AST ALT Lactate Dehydrogenase CK-MB (CK-2) C-Reactive Protein NT-Pro-B Natriuret Pep Total Protein Albumin Arterial Blood Glucose Urine WBC (Auto) 01/21/20 12:32 WBC RBC Hgb Hct MCHC RDW MCV MCH Lymph % (Auto) [place] % (Auto) [place] # Eos # Lymph # (Auto) [place] # (Auto) Eos # (Auto) Seg Neutrophils % Seg Neuts % (Manual) Baso # (Auto) Lymphocytes % (Manual) Monocytes % (Manual) Eosinophils % (Manual) Basophils % (Manual) Seg Neutrophils # Seg Neutrophils # Man Lymphocytes # (Manual) Monocytes # (Manual) Eosinophils # (Manual) Nucleated RBC % Basophils # (Manual) PT INR APTT Heparin Anti-Xa Level ABG pH POC ABG pO2 ABG pO2 ABG HCO3 ABG O2 Saturation ABG Base Excess POC ABG pCO2 ABG Hemoglobin ABG Oxyhemoglobin ABG Glucose Oxyhemoglobin Sodium Potassium Chloride Carbon Dioxide BUN Creatinine Glucose POC Glucose 112 H Lactic Acid Calcium Phosphorus Magnesium AST ALT Lactate Dehydrogenase CK-MB (CK-2) C-Reactive Protein NT-Pro-B Natriuret Pep Total Protein Albumin Arterial Blood Glucose Urine WBC (Auto) Allied health notes reviewed: nursing
[2020-01-21] MEDS ORDERED: SODIUM CHLORIDE 0.9% 1000 ML 1,000 ML ONE (17:41)
--- NOTE | 2020-01-21 18:44 | Progress Note ---
Assessment and Plan Assessment and plan: COVID-19 test; 11/24/2019; negative 11/26/2019; negative 12/29/2019: Negative --Intermittent chest pain; Cardiology is following, planning left heart cath tomorrow Continue current cardiac medications --Acute on chronic hypoxemic respiratory failure; Patient has tracheostomy on vent Continue nebulizers, , trach care Wean off ventilator as tolerated Pulmonary critical following --Acute exacerbation of COPD; Patient is currently on ventilatory support Continue nebulizers --Left lower lobe PE; Continue Eliquis, ventilatory support --Acute right lower extremity DVT; Patient is on Eliquis --Bilateral multifocal pneumonia/community-acquired Completed antibiotics, improved --Severe sepsis/bilateral pneumonia: Completed antibiotics --Paroxysmal atrial fibrillation; Now rate controlled, Stable on amiodarone and Eliquis --Acute on chronic diastolic congestive heart failure Continue diuretics, beta-blockers, EF 50 to 55% --H/o CAD [[facility] 12/2018 in-stent restenosis] Patient is stable on current cardiac medications --Hypertensive emergency; present on admission Reasonable blood pressures, continue current antihypertensives As needed medications --History of alcohol abuse/alcohol withdrawal; Was on CIWA protocol, now stable --Oropharyngeal dysphagia; status post PEG placement Continue PEG feeds per protocol --History of partial small bowel obstruction; resolved Surgery evaluated. --Obesity; BMI 34.7 Patient needs weight reduction when medically stable --Severe protein calorie malnutrition/hypoalbuminemia Nutrition supplements, dietitian following, PEG feeds --DVT prophylaxis;Eliquis --Full CODE STATUS We will closely monitor the patient and adjust the management as needed Plan of care reviewed with the patient's nurse The high probability of a clinically significant, sudden or life threatening deterioration of the [Respiratory, cardiovascular & neurological] system(s) required my full and direct attention, intervention and personal management. The aggregate critical care time was [33] minutes without overlap. Time includes spent on [x] Data Review and interpretation [x] Patient assessment and monitoring of vital signs [x] Documentation [x] Medication orders and management 01/05; Pt stable. NGT output 650cc over 24 hours, bilious. No f/c, WBC within normal limits. cont NG suction and cont to hold TF 01/06: Abs series - mild improvement in small bowel distension in mid abdomen, normal gas/stool pattern in colon. NGT in duodenum. Continue to hold tube feeding, maintain NG tube with low intermittent suction. Patient's was updated by phone. Continue to provide supportive care and monitor clinically. 01/07: +BMs today and NGT/PEG output appears more gastric today. Plan to clamp NGT, if tolerates start TF from tomorrow. cont supportive care. 01/08; Gastric output decreased over last 24 hours. NGT has been clamped x 24 hours. plan to dc NGT and to start TTF via PEG - vital HF @10cc/hr 01/09: clinically stable, tolerating TF. monitor BMP, wean off from vent as tolerated clinically stable, on TF. wean off vent as tolerated 01/11: wean off from vent, cont to monitor, on TF 01/12: wean off from vent, cont to monitor, on TF. need placement - unfunded 01/13; remains on ventilatory support, unable to wean, DC planning possible LTAC, unfunded 01/14; patient of ventilatory support, T-piece tracheostomy on oxygen, LTAC placement per case management 01/16; tracheostomy, patient on full ventilatory support, wean off vent support as tolerated, pending LTAC placement, social financial issues 01/17; awaiting LTAC placement, insurance and financial issues 01/18; patient tracheostomy remains on ventilatory support 01/19; wean off ventilator as tolerated 01/20; remains on ventilatory support, patient complains of intermittent chest pain, cardiology recommend left heart catheterization tomorrow Brief History Patient is a 64-year-old male with known history of hypertension, COPD, history of coronary artery disease, CHF with ejection fraction of 20 to 25% in August 2018 presenting to the emergency room via EMS complaining of shortness of breath. Patient was found to be hypoxic and in respiratory distress. Patient was placed on CPAP in route to the hospital. Patient remained hypoxic on CPAP BiPAP ,subsequently was intubated. Work-up in the emergency room including chest x-ray reveals bilateral pneumonia. He had an elevated white count of 14 and also had an elevated BNP. sputum cultures positive for Pseudomonas, ID treated with cefepime and Vanco. His hospital course became complicated with acute PE, DVT, paroxysmal atrial fib - placed on chronic anticoagulation. Patient was difficult to wean off, status post trach and PEG, remains on mechanical ventilation with trach tube. He then developed partial small bowel obstruction valuated by general surgeon symptom improved with medical Mx, patient was briefly weaned off ventilatory support however, was in respiratory failure requiring full ventilatory support. On weaning parameters, awaiting placement possible LTAC History Interval history: I have seen and examined the patient in the morning at the bedside in ICU Patient's chart and medications reviewed Patient tracheostomy on ventilatory support Alert and awake, not in acute distress Vital signs noted Hospitalist Physical - Constitutional Vitals: Temp Pulse Resp BP Pulse Ox 97.8 F 84 23 90/61 99 01/21/20 16:00 01/21/20 18:16 01/21/20 18:16 01/21/20 18:16 01/21/20 18:16 General appearance: Present: well-nourished, obese, other (Tracheostomy on vent) - EENT Eyes: Present: PERRL - Neck Neck: Present: supple, other (tracheostomy) - Respiratory Respiratory effort: normal Respiratory: bilateral: diminished, rales, negative: wheezing - Cardiovascular Rhythm: regular Heart Sounds: Present: S1 & S2 - Extremities Extremities: no ischemia, No edema - Abdominal General gastrointestinal: soft, non-tender, non-distended, normal bowel sounds, other (PEG in pace) - Integumentary Integumentary: Present: clear, warm - Psychiatric Psychiatric: appropriate mood/affect, other (on vent) - Neurologic Neurologic: other (on vent) HEART Score - HEART Score Troponin: Troponin T < 0.010 ng/mL (0.00-0.029) 01/19/20 01:35 Results - Labs CBC & Chem 7: 01/20/20 14:55 01/20/20 05:40 Labs: Laboratory Last Values WBC 9.0 K/mm3 (4.5-11.0) 01/20/20 05:20 RBC 3.65 M/mm3 (3.65-5.03) 01/20/20 05:20 Hgb 9.0 gm/dl (11.8-15.2) L 01/20/20 14:55 Hct 28.3 % (35.5-45.6) L 01/20/20 14:55 MCV 81 fl (84-94) L 01/20/20 05:20 MCH 25 pg (28-32) L 01/20/20 05:20 MCHC 31 % (32-34) L 01/20/20 05:20 RDW 17.9 % (13.2-15.2) H 01/20/20 05:20 Plt Count 276 K/mm3 (140-440) 01/20/20 14:55 Lymph % (Auto) 18.6 % (13.4-35.0) 01/18/20 06:46 [place] % (Auto) 6.8 % (0.0-7.3) 01/18/20 06:46 Eos % (Auto) 1.9 % (0.0-4.3) 01/18/20 06:46 Baso % (Auto) 0.8 % (0.0-1.8) 01/18/20 06:46 Lymph # (Auto) 1.8 K/mm3 (1.2-5.4) 01/18/20 06:46 [place] # (Auto) 0.7 K/mm3 (0.0-0.8) 01/18/20 06:46 Eos # (Auto) 0.2 K/mm3 (0.0-0.4) 01/18/20 06:46 Baso # (Auto) 0.1 K/mm3 (0.0-0.1) 01/18/20 06:46 Add Manual Diff Complete 12/19/19 11:32 Total Counted 100 12/19/19 11:32 Seg Neutrophils % 71.9 % (40.0-70.0) H 01/18/20 06:46 Seg Neuts % (Manual) 82.0 % (40.0-70.0) H 12/19/19 11:32 Band Neutrophils % 0 % 12/19/19 11:32 Lymphocytes % (Manual) 10.0 % (13.4-35.0) L 12/19/19 11:32 Reactive Lymphs % (Man) 0 % 12/19/19 11:32 Monocytes % (Manual) 6.0 % (0.0-7.3) 12/19/19 11:32 Eosinophils % (Manual) 2.0 % (0.0-4.3) 12/19/19 11:32 Basophils % (Manual) 0 % (0.0-1.8) 12/19/19 11:32 Metamyelocytes % 0 % 12/19/19 11:32 Myelocytes % 0 % 12/19/19 11:32 Promyelocytes % 0 % 12/19/19 11:32 Blast Cells % 0 % 12/19/19 11:32 Nucleated RBC % 1.0 % (0.0-0.9) H 12/19/19 11:32 Seg Neutrophils # 7.0 K/mm3 (1.8-7.7) 01/18/20 06:46 Seg Neutrophils # Man 12.0 K/mm3 (1.8-7.7) H 12/19/19 11:32 Band Neutrophils # 0.0 K/mm3 12/19/19 11:32 Lymphocytes # (Manual) 1.5 K/mm3 (1.2-5.4) 12/19/19 11:32 Abs React Lymphs (Man) 0.0 K/mm3 12/19/19 11:32 Monocytes # (Manual) 0.9 K/mm3 (0.0-0.8) H 12/19/19 11:32 Eosinophils # (Manual) 0.3 K/mm3 (0.0-0.4) 12/19/19 11:32 Basophils # (Manual) 0.0 K/mm3 (0.0-0.1) 12/19/19 11:32 Metamyelocytes # 0.0 K/mm3 12/19/19 11:32 Myelocytes # 0.0 K/mm3 12/19/19 11:32 Promyelocytes # 0.0 K/mm3 12/19/19 11:32 Blast Cells # 0.0 K/mm3 12/19/19 11:32 WBC Morphology Not Reportable 12/19/19 11:32 Hypersegmented Neuts Not Reportable 12/19/19 11:32 Hyposegmented Neuts Not Reportable 12/19/19 11:32 Hypogranular Neuts Not Reportable 12/19/19 11:32 Smudge Cells Not Reportable 12/19/19 11:32 Toxic Granulation Not Reportable 12/19/19 11:32 Toxic Vacuolation Not Reportable 12/19/19 11:32 Dohle Bodies Not Reportable 12/19/19 11:32 Pelger-Huet Anomaly Not Reportable 12/19/19 11:32 Hector Rods Not Reportable 12/19/19 11:32 Platelet Estimate Consistent w auto 12/19/19 11:32 Clumped Platelets Not Reportable 12/19/19 11:32 Plt Clumps, EDTA Not Reportable 12/19/19 11:32 Large Platelets Not Reportable 12/19/19 11:32 Giant Platelets Not Reportable 12/19/19 11:32 Platelet Satelliting Not Reportable 12/19/19 11:32 Plt Morphology Comment Not Reportable 12/19/19 11:32 RBC Morphology Not Reportable 12/19/19 11:32 Dimorphic RBCs Not Reportable 12/19/19 11:32 Polychromasia Not Reportable 12/19/19 11:32 Hypochromasia Few 12/19/19 11:32 Poikilocytosis Not Reportable 12/19/19 11:32 Anisocytosis 1+ 12/19/19 11:32 Microcytosis Few 12/19/19 11:32 Macrocytosis Few 12/19/19 11:32 Spherocytes Not Reportable 12/19/19 11:32 Pappenheimer Bodies Not Reportable 12/19/19 11:32 Sickle Cells Not Reportable 12/19/19 11:32 Target Cells Not Reportable 12/19/19 11:32 Tear Drop Cells Not Reportable 12/19/19 11:32 Ovalocytes Not Reportable 12/19/19 11:32 Helmet Cells Not Reportable 12/19/19 11:32 Gottlieb-Strawberry Bodies Not Reportable 12/19/19 11:32 [place] Rings Not Reportable 12/19/19 11:32 Oc Cells Not Reportable 12/19/19 11:32 Bite Cells Not Reportable 12/19/19 11:32 Crenated Cell Not Reportable 12/19/19 11:32 Elliptocytes Not Reportable 12/19/19 11:32 Acanthocytes (Spur) Not Reportable 12/19/19 11:32 Rouleaux Not Reportable 12/19/19 11:32 Hemoglobin C Crystals Not Reportable 12/19/19 11:32 Schistocytes Not Reportable 12/19/19 11:32 Malaria parasites Not Reportable 12/19/19 11:32 Clifford Bodies Not Reportable 12/19/19 11:32 Hem Pathologist Commnt No 12/19/19 11:32 PT 20.4 Sec. (12.2-14.9) H 01/20/20 14:55 INR 1.72 (0.87-1.13) H 01/20/20 14:55 APTT 40.6 Sec. (24.2-36.6) H 01/20/20 14:55 Heparin Anti-Xa Level 1.93 U.I./ml (0.3-0.7) H 01/21/20 05:59 ABG pH 7.449 pH Units (7.350-7.450) 01/13/20 20:40 POC ABG pCO2 45.6 mmHg (32.0-48.0) 01/12/20 13:58 ABG pCO2 46.9 mm Hg 01/13/20 20:40 POC ABG pO2 76.6 mmHg (83-108) L 01/12/20 13:58 ABG pO2 65.3 mm Hg (80.0-90.0) L 01/13/20 20:40 POC ABG HCO3 31.2 01/12/20 13:58 ABG HCO3 31.8 mmol/L (20.0-26.0) H 01/13/20 20:40 ABG O2 Saturation 93.5 % (95.0-99.0) L 01/13/20 20:40 ABG O2 Content 17.0 (0.0-44) 01/13/20 20:40 POC ABG Base Excess 6.5 01/12/20 13:58 ABG Base Excess 6.7 mmol/L (-2.0-3.0) H 01/13/20 20:40 ABG Hemoglobin 13.3 gm/dl (14.0-18.0) L 01/13/20 20:40 ABG Oxyhemoglobin 84 (94-98) L 12/22/19 03:22 ABG Carboxyhemoglobin 2.2 % (0.0-5.0) 01/13/20 20:40 ABG Methemoglobin 0.6 % (0.0-1.5) 01/13/20 20:40 ABG Sodium 136.8 mmol/L (136.0-145.0) 01/12/20 13:58 ABG Potassium 3.7 mmol/L (3.40-4.50) 01/12/20 13:58 ABG Chloride 103.0 mmol/L (98-107) 01/12/20 13:58 ABG Glucose 99 mg/dL (65-95) H 01/12/20 13:58 Oxyhemoglobin 90.9 % (95.0-99.0) L 01/13/20 20:40 Carboxyhemoglobin 0.7 (0.5-1.5) 12/22/19 03:22 FiO2 35 % 01/13/20 20:40 Sodium 140 mmol/L (137-145) 01/20/20 05:40 Potassium 4.2 mmol/L (3.6-5.0) 01/20/20 05:40 Chloride 99.7 mmol/L (98-107) 01/20/20 05:40 Carbon Dioxide 32 mmol/L (22-30) H 01/20/20 05:40 Anion Gap 13 mmol/L 01/20/20 05:40 BUN 22 mg/dL (9-20) H 01/20/20 05:40 Creatinine 0.7 mg/dL (0.8-1.3) L 01/20/20 05:40 Estimated GFR > 60 ml/min 01/20/20 05:40 BUN/Creatinine Ratio 31 % 01/20/20 05:40 Glucose 128 mg/dL (75-100) H 01/20/20 05:40 POC Glucose 105 mg/dL (70-105) 01/21/20 18:23 Lactic Acid 2.50 mmol/L (0.7-2.0) H* 11/24/19 10:37 Magnesium 2.60 mg/dL (1.7-2.3) H 12/07/19 12:41 Calcium 9.5 mg/dL (8.4-10.2) 01/20/20 05:40 Ferritin 84.4 ng/mL (30.0-300.0) 11/24/19 04:53 Direct Bilirubin < 0.2 mg/dL (0-0.2) 12/08/19 03:55 Indirect Bilirubin 0.2 mg/dL 12/08/19 03:55 Phosphorus 3.40 mg/dL (2.5-4.5) 01/12/20 12:01 Total Bilirubin 0.50 mg/dL (0.1-1.2) 01/12/20 00:23 Total Creatine Kinase 141 units/L (55-170) 11/24/19 02:53 CK-MB (CK-2) 4.3 ng/mL (0.0-4.0) H 11/24/19 02:53 AST 16 units/L (5-40) 01/12/20 00:23 ALT 22 units/L (7-56) 01/12/20 00:23 CK-MB (CK-2) Rel Index 3.0 (0-4) 11/24/19 02:53 Alkaline Phosphatase 59 units/L (35-129) 01/12/20 00:23 C-Reactive Protein 8.50 mg/dL (0.00-1.30) H 12/01/19 12:16 Lactate Dehydrogenase 228 units/L (91-180) H 12/19/19 04:45 Troponin T < 0.010 ng/mL (0.00-0.029) 01/19/20 01:35 NT-Pro-B Natriuret Pep 3866 pg/mL (0-900) H 01/01/20 10:40 Total Protein 6.3 g/dL (6.3-8.2) 01/12/20 00:23 Albumin 2.6 g/dL (3.9-5) L 01/12/20 00:23 Albumin/Globulin Ratio 0.7 % 01/12/20 00:23 Procalcitonin 0.76 ng/mL (<0.15) 01/01/20 10:40 Arterial Blood Glucose 99 mg/dL (65-95) H 01/12/20 13:58 Arterial Blood Ionized Calcium 4.8 mg/dL (4.6-5.3) 01/12/20 13:58 Urine Color Cecy (Yellow) 12/31/19 18:04 Urine Turbidity Clear (Clear) 12/31/19 18:04 Urine pH 5.0 (5.0-7.0) 12/31/19 18:04 Ur Specific [place] 1.023 (1.003-1.030) 12/31/19 18:04 Urine Protein <15 mg/dl mg/dL (Negative) 12/31/19 18:04 Urine Glucose (UA) Neg mg/dL (Negative) 12/31/19 18:04 Urine Ketones Neg mg/dL (Negative) 12/31/19 18:04 Urine Blood Neg (Negative) 12/31/19 18:04 Urine Bacteria (Auto) 1+ /HPF (Negative) 12/03/19 06:03 Urine Nitrite Neg (Negative) 12/31/19 18:04 Urine Bilirubin Neg (Negative) 12/31/19 18:04 Urine Urobilinogen 4.0 mg/dL (<2.0) 12/31/19 18:04 Ur Leukocyte Esterase Neg (Negative) 12/31/19 18:04 Urine WBC (Auto) 2.0 /HPF (0.0-6.0) 12/31/19 18:04 Urine RBC (Auto) 3.0 /HPF (0.0-6.0) 12/31/19 18:04 U Epithel Cells (Auto) 2.0 /HPF (0-13.0) 12/31/19 18:04 Urine Mucus 1+ /HPF 12/31/19 18:04 Vancomycin Trough 14.2 ug/mL (5.0-20.0) 12/13/19 15:01 Coronavirus (PCR) Negative (Negative) 12/29/19 10:07 Blood Type O POSITIVE 01/21/20 13:00 Antibody Screen Negative 01/21/20 13:00 - Diagnostic Impressions Diagnostic Impressions: Echocardiogram 11/29/19 07:37 Transthoracic Echocardiogram Indication: CHF BP: 116/72 HR: 33 Conclusions *The study is technically limited due to poor acoustic windows. *Global left ventricular systolic function is normal. *The estimated ejection fraction is 50-55%. *Mild concentric left ventricular hypertrophy is observed. *There is trace of mitral regurgitation. *There is mild tricuspid regurgitation. Findings Procedure Info: The study quality is poor. The study is technically limited due to poor acoustic windows. The study is technically limited due to patient body habitus. Left Ventricle: The left ventricular chamber size is normal. Mild concentric left ventricular hypertrophy is observed. Global left ventricular systolic function is normal. The estimated ejection fraction is 50-55%. Left Atrium: The left atrial chamber size is normal. Right Ventricle: The right ventricular cavity size is normal. Right Atrium: The right atrial cavity size is normal. Aortic Valve: The aortic valve leaflets are moderately thickened. There is trace of aortic regurgitation. There is no evidence of aortic stenosis. Mitral Valve: The mitral valve leaflets are mildly thickened. There is trace of mitral regurgitation. There is no evidence of mitral stenosis. Tricuspid Valve: There is mild tricuspid regurgitation. No pulmonary hypertension is noted. Pulmonic Valve: There is trace pulmonic regurgitation. Pericardium: There is no pericardial effusion. Aorta: There is no dilatation of the aortic root. Venous: The inferior vena cava appears normal in size. Contrast: Definity was used to optimize study. Intravenous contrast was used to enhance endocardial border definition. Measurements Chambers 2D Name Value Normal Range Ao root diameter (2D) 3.4 cm (2 - 3.7) Aortic Valve Name Value Normal Range AV Vmax 0.98 m/sec - AV VTI 16.76 cm - AV peak gradient 3.83 mmHg - AV mean gradient 2.57 mmHg - LVOT diameter 3.11 cm - LVOT Vmax 0.68 m/sec - LVOT VTI 11.52 cm - LVOT peak gradient 1.84 mmHg - LVOT mean gradient 1.27 mmHg - SV LVOT 87.31 ml - MALOU (continuity Vmax) 5.24 cm2 - MALOU (continuity VTI) 5.21 cm2 - Tricuspid Valve Name Value Normal Range IVC diameter 2.24 cm (1.2 - 2.3) Hoffman/IV: Voiding Method Condom Catheter IV Catheter Type [Right INT / Saline Lock Forearm] IV Catheter Type [Right Hand] Peripheral IV IV Catheter Type [Right Upper INT / Saline Lock arm] IV Catheter Type [Left Upper Mid-line arm] IV Catheter Type [Left Forearm INT / Saline Lock ] IV Catheter Type [Left Hand] INT / Saline Lock IV Catheter Type [Left Wrist] INT / Saline Lock IV Catheter Type [Right Peripheral IV Antecubital] Active Medications - Current Medications Current Medications: Generic Name Dose Route Start Last Admin Trade Name Freq PRN Reason Stop Dose Admin Acetaminophen 650 mg 12/31/19 11:43 01/14/20 08:27 Tylenol FEEDTUBE 650 mg Q6H PRN Administration Pain, Mild (1-3) Amiodarone HCl 200 mg 01/21/20 06:00 01/21/20 07:36 Cordarone PO 200 mg QDAY [facility] Administration Lipase/Protease/Amylase 1 each 01/09/20 12:01 Pancrepetr Betancourt 10,500 Unit FEEDTUBE PRN PRN For Clogged Feeding Tube Aspirin 81 mg 01/20/20 14:00 01/21/20 14:47 Baby Aspirin PO Not Given QDAY [facility] Atorvastatin Calcium 40 mg 01/20/20 22:00 01/20/20 21:52 Lipitor PO 40 mg QHS CAR Administration Bisacodyl 10 mg 01/06/20 13:00 01/21/20 13:04 Dulcolax NM Not Given DAILY CAR Clopidogrel Bisulfate 75 mg 01/21/20 06:00 01/21/20 06:43 Plavix PO 75 mg QDAY CAR Administration Docusate Sodium 100 mg 12/02/19 22:00 01/21/20 15:44 Colace FEEDTUBE Not Given BID CAR Famotidine 20 mg 01/12/20 10:00 01/21/20 13:02 Pepcid PO 20 mg BID CAR Administration Furosemide 20 mg 01/20/20 06:00 01/21/20 17:47 Lasix IV 20 mg 0600,1800 CAR Administration Glycopyrrolate 2 mg 01/12/20 22:00 01/21/20 13:04 Glycopyrrolate PO 2 mg BID CAR Administration Haloperidol Lactate 5 mg 12/25/19 10:00 01/17/20 11:19 Haldol IV 5 mg Q6H PRN Administration Unrespon. to mult. doses BZD's Hydrophilic Ointment 1 applic 01/17/20 15:26 Vaseline Lip Therapy TP DIRECT PRN Dry Lips Heparin Sodium/Sodium Chloride 25,000 unit in 500 mls @ 20 mls/hr 01/20/20 14:00 01/21/20 10:30 Heparin/ 0.45% Nacl-25,000 Unit/500 Ml IV 350 units/hr TITRATE CAR 7 mls/hr Titration Protocol 1,000 UNITS/HR Sodium Chloride 500 mls @ 50 mls/hr 01/21/20 19:00 Nacl 0.9% 500 Ml IV 01/23/20 04:59 DIRECT CAR Lorazepam 2 mg 12/25/19 10:00 01/21/20 11:00 Ativan IV 2 mg Q6H PRN Administration AGITATION Magnesium Hydroxide 30 ml 01/14/20 13:35 Milk Of Magnesia PO QDAY PRN Constip unreliev by MOM/or NPO Metoprolol Tartrate 5 mg 01/11/20 08:00 01/21/20 03:04 Metoprolol IV 5 mg Q6H PRN Administration SEE INSTRUCTIONS Metoprolol Tartrate 25 mg 01/11/20 13:00 01/21/20 16:03 Metoprolol PO 25 mg Q6H CAR Administration Morphine Sulfate 2 mg 01/06/20 15:41 01/21/20 17:46 Morphine IV 2 mg Q4H PRN Administration Pain, Moderate (4-6) Nitroglycerin 0.4 mg 01/19/20 21:09 01/20/20 03:03 Nitrostat SL 0.4 mg .Q5MIN PRN Administration Chest Pain Nitroglycerin 0.4 mg 01/21/20 06:00 01/21/20 07:37 Nitro Dur TD 0.4 mg QDAY@0600 CAR Administration Ondansetron HCl 4 mg 01/05/20 14:37 01/05/20 16:18 Zofran IV 4 mg Q8H PRN Administration Nausea And Vomiting Polyethylene Glycol 17 gm 12/04/19 22:00 01/20/20 21:52 Miralax 3350 PO 17 gm QHS CAR Administration Quetiapine Fumarate 300 mg 01/13/20 22:00 01/21/20 13:07 Seroquel PO 300 mg BID CAR Administration Scopolamine 1 each 01/07/20 20:00 01/07/20 21:08 Transderm-Scop TD 1 each Q72HR CAR Administration Simple Syrup 15 ml 01/09/20 12:01 Simple Syrup FEEDTUBE PRN PRN Hypoglycemia Simple Syrup 30 ml 01/09/20 12:01 Simple Syrup FEEDTUBE PRN PRN Hypoglycemia Sodium Bicarbonate 325 mg 01/09/20 12:01 Sodium Bicarbonate FEEDTUBE PRN PRN For Clogged Feeding Tube Sodium Chloride 10 ml 11/24/19 10:00 01/21/20 15:46 Sodium Chloride Flush Syringe 10 Ml IV Not Given BID CAR Tamsulosin HCl 0.8 mg 12/20/19 22:00 01/20/20 21:52 Flomax PO 0.8 mg QHS CAR Administration Nutrition/Malnutrition Assess - Dietary Evaluation Nutrition/Malnutrition Findings: Nutrition Notes Start: 11/24/19 12:22 Freq: Status: Active Protocol: Document 01/21/20 15:55 HEATHER (Rec: 01/21/20 16:17 HEATHER [id number]) Co-Sign 01/21/20 15:55 LEONA Nutrition Notes Initial or Follow up Reassessment Current Diagnosis Coronary Artery Disease,Heart Failure,Respiratory Failure, Stroke,Hyperlipidemia Other Pertinent Diagnosis Partial SBO, pneu Current Diet NPO Labs/Tests BUN 22 Cr 0.7 Pertinent Medications Lasix Height 6 ft 2 in Weight 116.2 kg [place] Body Weight (kg) 86.36 BMI 32.8 Weight change and time frame Wt change noted. Pt is more often wt 116kg. On Lasix, bed wt taken. Will monitor. Weight Status Overweight Subjective/Other Information F/u TF, labs, vent, wt loss. Pt was extubated and with trach and oxygen support. Pt had trouble communicating. Nutrition focused physical exam performed by BRODY, noted some temporal wasting and depleted muscle in L lower leg calf and thigh. 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 #1 Nutrition Diagnosis Inadequate oral intake Diagnosis Progress(for reassessment Continues documentation) Is patient on ventilator? No Is Patient Ambulatory and/or Out of Bed No REE-([facility]-confined to bed) 2436.756 Kcal/Kg value to use for calculation 18 Approximate Energy Requirements Using 2092 kcal/Kg Calculation Used for Recommendations Kcal/kg Additional Notes Pro needs 122-152g (1.2-1.5g/ kg AdBW 101kg) Fluid needs 1ml/kcal [ End ] Nutrition Intervention Change Diet Order: Advance diet as medically able Goal #1 Diet advancement Anticipated Discharge Needs: unable to determine Follow-Up By: 01/22/20 Additional Comments POC and diet advancement
[2020-01-21] MEDS ORDERED: SODIUM CHLORIDE 0.9% 500 ML 500 ML IV SCH (19:00)
[2020-01-21] MEDS: POLYETHYLENE GLYCOL 3350 17 GM POWDER PO SCH (21:44)
[2020-01-21] MEDS: TAMSULOSIN 0.4 MG CAP PO SCH (21:45)
[2020-01-22] MEDS: METOPROLOL TARTRATE 25 MG TAB PO SCH ×4 (00:31→18:14)
[2020-01-22] MEDS: MORPHINE 2 MG/1 ML INJ IV PRN ×2 (00:32→16:16)
[2020-01-22] MEDS: METOPROLOL TARTRATE 5 MG/5 ML INJ IV PRN (02:10)
[2020-01-22] MEDS: ONDANSETRON 4 MG/2 ML INJ IV PRN (04:23)
[2020-01-22 04:58] LABS: Hemoglobin 9.3 gm/dl (11.8-15.2)
[2020-01-22] MEDS: NITROGLYCERIN 0.4 MG PATCH 24HR TD SCH (05:24)
[2020-01-22] MEDS: FUROSEMIDE 20 MG/2 ML INJ IV SCH ×2 (06:54→18:14)
[2020-01-22] MEDS ORDERED: HEPARIN/NS 5000 UNIT/500ML 1,000 ML IR ONE (09:08)
[2020-01-22] MEDS: MIDAZOLAM 2 MG/2 ML INJ ONE ×2 (09:50→09:55)
[2020-01-22] MEDS: fentaNYL 100 MCG/2 ML INJ ONE ×2 (09:50→09:55)
[2020-01-22] MEDS: LIDOCAINE (2%) 20 MG/1 ML VIAL 20 ML MDV INFILTRATI ONE ×2 (09:56→09:57)
[2020-01-22] MEDS: VERAPAMIL 5 MG/2 ML INJ ONE ×2 (09:58→09:59)
[2020-01-22] MEDS: HEPARIN 10,000 UNITS/10 ML VIAL ONE ×2 (09:58→09:59)
[2020-01-22] MEDS: NITROGLYCERIN SYRINGE 3 ML ONE ×2 (09:58→09:59)
--- NOTE | 2020-01-22 09:59 | Progress Note ---
Assessment and Plan Assessment and plan: --Intermittent chest pain; Cardiology is following, planning left heart cath tomorrow Continue current cardiac medications --Acute on chronic hypoxemic respiratory failure; Patient has tracheostomy on vent Continue nebulizers, , trach care Wean off ventilator as tolerated Pulmonary critical following --Acute exacerbation of COPD; Patient is currently on ventilatory support Continue nebulizers --Left lower lobe PE; Continue Eliquis, ventilatory support --Acute right lower extremity DVT; Patient is on Eliquis --Bilateral multifocal pneumonia/community-acquired Completed antibiotics, improved --Severe sepsis/bilateral pneumonia: Completed antibiotics COVID-19 test; 11/24/2019; negative 11/26/2019; negative 12/29/2019: Negative --Paroxysmal atrial fibrillation; Now rate controlled, Stable on amiodarone and Eliquis --Acute on chronic diastolic congestive heart failure Continue diuretics, beta-blockers, EF 50 to 55% --H/o CAD [[facility] 12/2018 in-stent restenosis] Patient is stable on current cardiac medications --Hypertensive emergency; present on admission Reasonable blood pressures, continue current antihypertensives As needed medications --History of alcohol abuse/alcohol withdrawal; Was on CIWA protocol, now stable --Oropharyngeal dysphagia; status post PEG placement Continue PEG feeds per protocol --History of partial small bowel obstruction; resolved Surgery evaluated. --Obesity; BMI 34.7 Patient needs weight reduction when medically stable --Severe protein calorie malnutrition/hypoalbuminemia Nutrition supplements, dietitian following, PEG feeds --DVT prophylaxis;Eliquis --Full CODE STATUS We will closely monitor the patient and adjust the management as needed Plan of care reviewed with the patient's nurse The high probability of a clinically significant, sudden or life threatening deterioration of the [Respiratory, cardiovascular & neurological] system(s) required my full and direct attention, intervention and personal management. The aggregate critical care time was [33] minutes without overlap. Time includes spent on [x] Data Review and interpretation [x] Patient assessment and monitoring of vital signs [x] Documentation [x] Medication orders and management 01/05; Pt stable. NGT output 650cc over 24 hours, bilious. No f/c, WBC within normal limits. cont NG suction and cont to hold TF 01/06: Abs series - mild improvement in small bowel distension in mid abdomen, normal gas/stool pattern in colon. NGT in duodenum. Continue to hold tube feeding, maintain NG tube with low intermittent suction. Patient's was updated by phone. Continue to provide supportive care and monitor clinically. 01/07: +BMs today and NGT/PEG output appears more gastric today. Plan to clamp NGT, if tolerates start TF from tomorrow. cont supportive care. 01/08; Gastric output decreased over last 24 hours. NGT has been clamped x 24 hours. plan to dc NGT and to start TTF via PEG - vital HF @10cc/hr 01/09: clinically stable, tolerating TF. monitor BMP, wean off from vent as tolerated clinically stable, on TF. wean off vent as tolerated 01/11: wean off from vent, cont to monitor, on TF 01/12: wean off from vent, cont to monitor, on TF. need placement - unfunded 01/13; remains on ventilatory support, unable to wean, DC planning possible LTAC , unfunded 01/14; patient of ventilatory support, T-piece tracheostomy on oxygen, LTAC placement per case management 01/16; tracheostomy, patient on full ventilatory support, wean off vent support as tolerated, pending LTAC placement, social financial issues 01/17; awaiting LTAC placement, insurance and financial issues 01/18; patient tracheostomy remains on ventilatory support 01/19; wean off ventilator as tolerated 01/20; remains on ventilatory support, patient complains of intermittent chest pain, cardiology recommend left heart catheterization tomorrow 01/22/2020. Patient for left heart catheterization per cardiology. Patient remains on AC mode ventilation rate 12, tidal volume 450, FiO2 30% and PEEP of 6. Continue tracheostomy care, airway management and secretion control. History Interval history: Patient is a 64-year-old male with known history of hypertension, COPD, history of coronary artery disease, CHF with ejection fraction of 20 to 25% in August 2018 presenting to the emergency room via EMS complaining of shortness of breath. Patient was found to be hypoxic and in respiratory distress. Patient was placed on CPAP in route to the hospital. Patient remained hypoxic on CPAP BiPAP ,subsequently was intubated. Work-up in the emergency room including chest x-ray reveals bilateral pneumonia. He had an elevated white count of 14 and also had an elevated BNP. sputum cultures positive for Pseudomonas, ID treated with cefepime and Vanco. His hospital course became complicated with acute PE, DVT, paroxysmal atrial fib - placed on chronic anticoagulation. Patient was difficult to wean off, status post trach and PEG, remains on mechanical ventilation with trach tube. He then developed partial small bowel obstruction valuated by general surgeon symptom improved with medical Mx, patient was briefly weaned off ventilatory support however, was in respiratory failure requiring full ventilatory support. On weaning parameters, awaiting placement possible LTAC No new issues overnight. Hospitalist Physical - Constitutional Vitals: Temp Pulse Resp BP Pulse Ox 98.0 F 95 H 27 H 106/79 98 01/22/20 08:00 01/22/20 09:00 01/22/20 09:00 01/22/20 09:00 01/22/20 09:00 General appearance: Present: well-nourished, obese, other (Tracheostomy on vent) - EENT Eyes: Present: PERRL, EOM intact ENT: hearing intact, clear oral mucosa, dentition normal - Neck Neck: Present: supple, normal ROM - Respiratory Respiratory effort: normal Respiratory: bilateral: CTA - Cardiovascular Rhythm: regular Heart Sounds: Present: S1 & S2. Absent: gallop, rub - Extremities Extremities: no ischemia, No edema, Full ROM - Abdominal General gastrointestinal: soft, non-tender, non-distended, normal bowel sounds - Integumentary Integumentary: Present: clear, warm, dry - Neurologic Neurologic: CNII-XII intact, moves all extremities HEART Score - HEART Score Troponin: Troponin T < 0.010 ng/mL (0.00-0.029) 01/19/20 01:35 Results - Labs CBC & Chem 7: 01/22/20 04:45 01/20/20 05:40 Labs: Laboratory Last Values WBC 9.0 K/mm3 (4.5-11.0) 01/20/20 05:20 RBC 3.65 M/mm3 (3.65-5.03) 01/20/20 05:20 Hgb 9.3 gm/dl (11.8-15.2) L 01/22/20 04:45 Hct 29.0 % (35.5-45.6) L 01/22/20 04:45 MCV 81 fl (84-94) L 01/20/20 05:20 MCH 25 pg (28-32) L 01/20/20 05:20 MCHC 31 % (32-34) L 01/20/20 05:20 RDW 17.9 % (13.2-15.2) H 01/20/20 05:20 Plt Count 324 K/mm3 (140-440) 01/22/20 04:45 Lymph % (Auto) 18.6 % (13.4-35.0) 01/18/20 06:46 Castro % (Auto) 6.8 % (0.0-7.3) 01/18/20 06:46 Eos % (Auto) 1.9 % (0.0-4.3) 01/18/20 06:46 Baso % (Auto) 0.8 % (0.0-1.8) 01/18/20 06:46 Lymph # (Auto) 1.8 K/mm3 (1.2-5.4) 01/18/20 06:46 Castro # (Auto) 0.7 K/mm3 (0.0-0.8) 01/18/20 06:46 Eos # (Auto) 0.2 K/mm3 (0.0-0.4) 01/18/20 06:46 Baso # (Auto) 0.1 K/mm3 (0.0-0.1) 01/18/20 06:46 Add Manual Diff Complete 12/19/19 11:32 Total Counted 100 12/19/19 11:32 Seg Neutrophils % 71.9 % (40.0-70.0) H 01/18/20 06:46 Seg Neuts % (Manual) 82.0 % (40.0-70.0) H 12/19/19 11:32 Band Neutrophils % 0 % 12/19/19 11:32 Lymphocytes % (Manual) 10.0 % (13.4-35.0) L 12/19/19 11:32 Reactive Lymphs % (Man) 0 % 12/19/19 11:32 Monocytes % (Manual) 6.0 % (0.0-7.3) 12/19/19 11:32 Eosinophils % (Manual) 2.0 % (0.0-4.3) 12/19/19 11:32 Basophils % (Manual) 0 % (0.0-1.8) 12/19/19 11:32 Metamyelocytes % 0 % 12/19/19 11:32 Myelocytes % 0 % 12/19/19 11:32 Promyelocytes % 0 % 12/19/19 11:32 Blast Cells % 0 % 12/19/19 11:32 Nucleated RBC % 1.0 % (0.0-0.9) H 12/19/19 11:32 Seg Neutrophils # 7.0 K/mm3 (1.8-7.7) 01/18/20 06:46 Seg Neutrophils # Man 12.0 K/mm3 (1.8-7.7) H 12/19/19 11:32 Band Neutrophils # 0.0 K/mm3 12/19/19 11:32 Lymphocytes # (Manual) 1.5 K/mm3 (1.2-5.4) 12/19/19 11:32 Abs React Lymphs (Man) 0.0 K/mm3 12/19/19 11:32 Monocytes # (Manual) 0.9 K/mm3 (0.0-0.8) H 12/19/19 11:32 Eosinophils # (Manual) 0.3 K/mm3 (0.0-0.4) 12/19/19 11:32 Basophils # (Manual) 0.0 K/mm3 (0.0-0.1) 12/19/19 11:32 Metamyelocytes # 0.0 K/mm3 12/19/19 11:32 Myelocytes # 0.0 K/mm3 12/19/19 11:32 Promyelocytes # 0.0 K/mm3 12/19/19 11:32 Blast Cells # 0.0 K/mm3 12/19/19 11:32 WBC Morphology Not Reportable 12/19/19 11:32 Hypersegmented Neuts Not Reportable 12/19/19 11:32 Hyposegmented Neuts Not Reportable 12/19/19 11:32 Hypogranular Neuts Not Reportable 12/19/19 11:32 Smudge Cells Not Reportable 12/19/19 11:32 Toxic Granulation Not Reportable 12/19/19 11:32 Toxic Vacuolation Not Reportable 12/19/19 11:32 Dohle Bodies Not Reportable 12/19/19 11:32 Pelger-Huet Anomaly Not Reportable 12/19/19 11:32 Hector Rods Not Reportable 12/19/19 11:32 Platelet Estimate Consistent w auto 12/19/19 11:32 Clumped Platelets Not Reportable 12/19/19 11:32 Plt Clumps, EDTA Not Reportable 12/19/19 11:32 Large Platelets Not Reportable 12/19/19 11:32 Giant Platelets Not Reportable 12/19/19 11:32 Platelet Satelliting Not Reportable 12/19/19 11:32 Plt Morphology Comment Not Reportable 12/19/19 11:32 RBC Morphology Not Reportable 12/19/19 11:32 Dimorphic RBCs Not Reportable 12/19/19 11:32 Polychromasia Not Reportable 12/19/19 11:32 Hypochromasia Few 12/19/19 11:32 Poikilocytosis Not Reportable 12/19/19 11:32 Anisocytosis 1+ 12/19/19 11:32 Microcytosis Few 12/19/19 11:32 Macrocytosis Few 12/19/19 11:32 Spherocytes Not Reportable 12/19/19 11:32 Pappenheimer Bodies Not Reportable 12/19/19 11:32 Sickle Cells Not Reportable 12/19/19 11:32 Target Cells Not Reportable 12/19/19 11:32 Tear Drop Cells Not Reportable 12/19/19 11:32 Ovalocytes Not Reportable 12/19/19 11:32 Helmet Cells Not Reportable 12/19/19 11:32 Gottlieb-Bouse Bodies Not Reportable 12/19/19 11:32 Atmore Rings Not Reportable 12/19/19 11:32 Oc Cells Not Reportable 12/19/19 11:32 Bite Cells Not Reportable 12/19/19 11:32 Crenated Cell Not Reportable 12/19/19 11:32 Elliptocytes Not Reportable 12/19/19 11:32 Acanthocytes (Spur) Not Reportable 12/19/19 11:32 Rouleaux Not Reportable 12/19/19 11:32 Hemoglobin C Crystals Not Reportable 12/19/19 11:32 Schistocytes Not Reportable 12/19/19 11:32 Malaria parasites Not Reportable 12/19/19 11:32 Clifford Bodies Not Reportable 12/19/19 11:32 Hem Pathologist Commnt No 12/19/19 11:32 PT 20.4 Sec. (12.2-14.9) H 01/20/20 14:55 INR 1.72 (0.87-1.13) H 01/20/20 14:55 APTT 40.6 Sec. (24.2-36.6) H 01/20/20 14:55 Heparin Anti-Xa Level 1.34 U.I./ml (0.3-0.7) H 01/22/20 04:45 ABG pH 7.449 pH Units (7.350-7.450) 01/13/20 20:40 POC ABG pCO2 45.6 mmHg (32.0-48.0) 01/12/20 13:58 ABG pCO2 46.9 mm Hg 01/13/20 20:40 POC ABG pO2 76.6 mmHg (83-108) L 01/12/20 13:58 ABG pO2 65.3 mm Hg (80.0-90.0) L 01/13/20 20:40 POC ABG HCO3 31.2 01/12/20 13:58 ABG HCO3 31.8 mmol/L (20.0-26.0) H 01/13/20 20:40 ABG O2 Saturation 93.5 % (95.0-99.0) L 01/13/20 20:40 ABG O2 Content 17.0 (0.0-44) 01/13/20 20:40 POC ABG Base Excess 6.5 01/12/20 13:58 ABG Base Excess 6.7 mmol/L (-2.0-3.0) H 01/13/20 20:40 ABG Hemoglobin 13.3 gm/dl (14.0-18.0) L 01/13/20 20:40 ABG Oxyhemoglobin 84 (94-98) L 12/22/19 03:22 ABG Carboxyhemoglobin 2.2 % (0.0-5.0) 01/13/20 20:40 ABG Methemoglobin 0.6 % (0.0-1.5) 01/13/20 20:40 ABG Sodium 136.8 mmol/L (136.0-145.0) 01/12/20 13:58 ABG Potassium 3.7 mmol/L (3.40-4.50) 01/12/20 13:58 ABG Chloride 103.0 mmol/L (98-107) 01/12/20 13:58 ABG Glucose 99 mg/dL (65-95) H 01/12/20 13:58 Oxyhemoglobin 90.9 % (95.0-99.0) L 01/13/20 20:40 Carboxyhemoglobin 0.7 (0.5-1.5) 12/22/19 03:22 FiO2 35 % 01/13/20 20:40 Sodium 140 mmol/L (137-145) 01/20/20 05:40 Potassium 4.2 mmol/L (3.6-5.0) 01/20/20 05:40 Chloride 99.7 mmol/L (98-107) 01/20/20 05:40 Carbon Dioxide 32 mmol/L (22-30) H 01/20/20 05:40 Anion Gap 13 mmol/L 01/20/20 05:40 BUN 22 mg/dL (9-20) H 01/20/20 05:40 Creatinine 0.7 mg/dL (0.8-1.3) L 01/20/20 05:40 Estimated GFR > 60 ml/min 01/20/20 05:40 BUN/Creatinine Ratio 31 % 01/20/20 05:40 Glucose 128 mg/dL (75-100) H 01/20/20 05:40 POC Glucose 131 mg/dL (70-105) H 01/22/20 08:22 Lactic Acid 2.50 mmol/L (0.7-2.0) H* 11/24/19 10:37 Magnesium 2.60 mg/dL (1.7-2.3) H 12/07/19 12:41 Calcium 9.5 mg/dL (8.4-10.2) 01/20/20 05:40 Ferritin 84.4 ng/mL (30.0-300.0) 11/24/19 04:53 Direct Bilirubin < 0.2 mg/dL (0-0.2) 12/08/19 03:55 Indirect Bilirubin 0.2 mg/dL 12/08/19 03:55 Phosphorus 3.40 mg/dL (2.5-4.5) 01/12/20 12:01 Total Bilirubin 0.50 mg/dL (0.1-1.2) 01/12/20 00:23 Total Creatine Kinase 141 units/L (55-170) 11/24/19 02:53 CK-MB (CK-2) 4.3 ng/mL (0.0-4.0) H 11/24/19 02:53 AST 16 units/L (5-40) 01/12/20 00:23 ALT 22 units/L (7-56) 01/12/20 00:23 CK-MB (CK-2) Rel Index 3.0 (0-4) 11/24/19 02:53 Alkaline Phosphatase 59 units/L (35-129) 01/12/20 00:23 C-Reactive Protein 8.50 mg/dL (0.00-1.30) H 12/01/19 12:16 Lactate Dehydrogenase 228 units/L (91-180) H 12/19/19 04:45 Troponin T < 0.010 ng/mL (0.00-0.029) 01/19/20 01:35 NT-Pro-B Natriuret Pep 3866 pg/mL (0-900) H 01/01/20 10:40 Total Protein 6.3 g/dL (6.3-8.2) 01/12/20 00:23 Albumin 2.6 g/dL (3.9-5) L 01/12/20 00:23 Albumin/Globulin Ratio 0.7 % 01/12/20 00:23 Procalcitonin 0.76 ng/mL (<0.15) 01/01/20 10:40 Arterial Blood Glucose 99 mg/dL (65-95) H 01/12/20 13:58 Arterial Blood Ionized Calcium 4.8 mg/dL (4.6-5.3) 01/12/20 13:58 Urine Color Cecy (Yellow) 12/31/19 18:04 Urine Turbidity Clear (Clear) 12/31/19 18:04 Urine pH 5.0 (5.0-7.0) 12/31/19 18:04 Ur Specific [place] 1.023 (1.003-1.030) 12/31/19 18:04 Urine Protein <15 mg/dl mg/dL (Negative) 12/31/19 18:04 Urine Glucose (UA) Neg mg/dL (Negative) 12/31/19 18:04 Urine Ketones Neg mg/dL (Negative) 12/31/19 18:04 Urine Blood Neg (Negative) 12/31/19 18:04 Urine Bacteria (Auto) 1+ /HPF (Negative) 12/03/19 06:03 Urine Nitrite Neg (Negative) 12/31/19 18:04 Urine Bilirubin Neg (Negative) 12/31/19 18:04 Urine Urobilinogen 4.0 mg/dL (<2.0) 12/31/19 18:04 Ur Leukocyte Esterase Neg (Negative) 12/31/19 18:04 Urine WBC (Auto) 2.0 /HPF (0.0-6.0) 12/31/19 18:04 Urine RBC (Auto) 3.0 /HPF (0.0-6.0) 12/31/19 18:04 U Epithel Cells (Auto) 2.0 /HPF (0-13.0) 12/31/19 18:04 Urine Mucus 1+ /HPF 12/31/19 18:04 Vancomycin Trough 14.2 ug/mL (5.0-20.0) 12/13/19 15:01 Coronavirus (PCR) Negative (Negative) 12/29/19 10:07 Blood Type O POSITIVE 01/21/20 13:00 Antibody Screen Negative 01/21/20 13:00 - Diagnostic Impressions Diagnostic Impressions: Echocardiogram 11/29/19 07:37 Transthoracic Echocardiogram Indication: CHF BP: 116/72 HR: 33 Conclusions *The study is technically limited due to poor acoustic windows. *Global left ventricular systolic function is normal. *The estimated ejection fraction is 50-55%. *Mild concentric left ventricular hypertrophy is observed. *There is trace of mitral regurgitation. *There is mild tricuspid regurgitation. Findings Procedure Info: The study quality is poor. The study is technically limited due to poor acoustic windows. The study is technically limited due to patient body habitus. Left Ventricle: The left ventricular chamber size is normal. Mild concentric left ventricular hypertrophy is observed. Global left ventricular systolic function is normal. The estimated ejection fraction is 50-55%. Left Atrium: The left atrial chamber size is normal. Right Ventricle: The right ventricular cavity size is normal. Right Atrium: The right atrial cavity size is normal. Aortic Valve: The aortic valve leaflets are moderately thickened. There is trace of aortic regurgitation. There is no evidence of aortic stenosis. Mitral Valve: The mitral valve leaflets are mildly thickened. There is trace of mitral regurgitation. There is no evidence of mitral stenosis. Tricuspid Valve: There is mild tricuspid regurgitation. No pulmonary hypertension is noted. Pulmonic Valve: There is trace pulmonic regurgitation. Pericardium: There is no pericardial effusion. Aorta: There is no dilatation of the aortic root. Venous: The inferior vena cava appears normal in size. Contrast: Definity was used to optimize study. Intravenous contrast was used to enhance endocardial border definition. Measurements Chambers 2D Name Value Normal Range Ao root diameter (2D) 3.4 cm (2 - 3.7) Aortic Valve Name Value Normal Range AV Vmax 0.98 m/sec - AV VTI 16.76 cm - AV peak gradient 3.83 mmHg - AV mean gradient 2.57 mmHg - LVOT diameter 3.11 cm - LVOT Vmax 0.68 m/sec - LVOT VTI 11.52 cm - LVOT peak gradient 1.84 mmHg - LVOT mean gradient 1.27 mmHg - SV LVOT 87.31 ml - MALOU (continuity Vmax) 5.24 cm2 - MALOU (continuity VTI) 5.21 cm2 - Tricuspid Valve Name Value Normal Range IVC diameter 2.24 cm (1.2 - 2.3) Hoffman/IV: Voiding Method Condom Catheter IV Catheter Type [Right INT / Saline Lock Forearm] IV Catheter Type [Right Hand] Peripheral IV IV Catheter Type [Right Upper INT / Saline Lock arm] IV Catheter Type [Left Upper Mid-line arm] IV Catheter Type [Left Forearm INT / Saline Lock ] IV Catheter Type [Left Hand] INT / Saline Lock IV Catheter Type [Left Wrist] INT / Saline Lock IV Catheter Type [Right Peripheral IV Antecubital] Active Medications - Current Medications Current Medications: Generic Name Dose Route Start Last Admin Trade Name Freq PRN Reason Stop Dose Admin Acetaminophen 650 mg 12/31/19 11:43 01/14/20 08:27 Tylenol FEEDTUBE 650 mg Q6H PRN Administration Pain, Mild (1-3) Amiodarone HCl 200 mg 01/21/20 06:00 01/21/20 07:36 Cordarone PO 200 mg QDAY CAR Administration Lipase/Protease/Amylase 1 each 01/09/20 12:01 Pancreaze 10,500 Unit FEEDTUBE PRN PRN For Clogged Feeding Tube Aspirin 81 mg 01/20/20 14:00 01/21/20 14:47 Baby Aspirin PO Not Given QDAY CAR Atorvastatin Calcium 40 mg 01/20/20 22:00 01/21/20 21:45 Lipitor PO 40 mg QHS CAR Administration Bisacodyl 10 mg 01/06/20 13:00 01/21/20 13:04 Dulcolax OR Not Given DAILY CAR Clopidogrel Bisulfate 75 mg 01/21/20 06:00 01/21/20 06:43 Plavix PO 75 mg QDAY CAR Administration Docusate Sodium 100 mg 12/02/19 22:00 01/21/20 21:45 Colace FEEDTUBE 100 mg BID CAR Administration Famotidine 20 mg 01/12/20 10:00 01/21/20 21:45 Pepcid PO 20 mg BID CAR Administration Furosemide 20 mg 01/20/20 06:00 01/22/20 06:54 Lasix IV Not Given 0600,1800 CAR Glycopyrrolate 2 mg 01/12/20 22:00 01/21/20 21:45 Glycopyrrolate PO 2 mg BID CAR Administration Haloperidol Lactate 5 mg 12/25/19 10:00 01/17/20 11:19 Haldol IV 5 mg Q6H PRN Administration Unrespon. to mult. doses BZD's Hydrophilic Ointment 1 applic 01/17/20 15:26 Vaseline Lip Therapy TP DIRECT PRN Dry Lips Heparin Sodium/Sodium Chloride 25,000 unit in 500 mls @ 20 mls/hr 01/20/20 14:00 01/21/20 21:40 Heparin/ 0.45% Nacl-25,000 Unit/500 Ml IV 0 units/hr TITRATE CAR 0 mls/hr Titration Protocol 1,000 UNITS/HR Sodium Chloride 500 mls @ 50 mls/hr 01/21/20 19:00 Nacl 0.9% 500 Ml IV 01/23/20 04:59 DIRECT CAR Lorazepam 2 mg 12/25/19 10:00 01/21/20 11:00 Ativan IV 2 mg Q6H PRN Administration AGITATION Magnesium Hydroxide 30 ml 01/14/20 13:35 Milk Of Magnesia PO QDAY PRN Constip unreliev by MOM/or NPO Metoprolol Tartrate 5 mg 01/11/20 08:00 01/22/20 02:10 Metoprolol IV 5 mg Q6H PRN Administration SEE INSTRUCTIONS Metoprolol Tartrate 25 mg 01/11/20 13:00 01/22/20 06:23 Metoprolol PO 25 mg Q6H CAR Administration Morphine Sulfate 2 mg 01/06/20 15:41 01/22/20 00:32 Morphine IV 2 mg Q4H PRN Administration Pain, Moderate (4-6) Nitroglycerin 0.4 mg 01/19/20 21:09 01/20/20 03:03 Nitrostat SL 0.4 mg .Q5MIN PRN Administration Chest Pain Nitroglycerin 0.4 mg 01/21/20 06:00 01/22/20 05:24 Nitro Dur TD 0.4 mg QDAY@0600 CAR Administration Ondansetron HCl 4 mg 01/05/20 14:37 01/22/20 04:23 Zofran IV 4 mg Q8H PRN Administration Nausea And Vomiting Polyethylene Glycol 17 gm 12/04/19 22:00 01/21/20 21:44 Miralax 3350 PO 17 gm QHS CAR Administration Quetiapine Fumarate 300 mg 01/13/20 22:00 01/21/20 21:45 Seroquel PO 300 mg BID CAR Administration Scopolamine 1 each 01/07/20 20:00 01/07/20 21:08 Transderm-Scop TD 1 each Q72HR CAR Administration Simple Syrup 15 ml 01/09/20 12:01 Simple Syrup FEEDTUBE PRN PRN Hypoglycemia Simple Syrup 30 ml 01/09/20 12:01 Simple Syrup FEEDTUBE PRN PRN Hypoglycemia Sodium Bicarbonate 325 mg 01/09/20 12:01 Sodium Bicarbonate FEEDTUBE PRN PRN For Clogged Feeding Tube Sodium Chloride 10 ml 11/24/19 10:00 01/21/20 21:45 Sodium Chloride Flush Syringe 10 Ml IV 10 ml BID CAR Administration Tamsulosin HCl 0.8 mg 12/20/19 22:00 01/21/20 21:45 Flomax PO 0.8 mg QHS CAR Administration Nutrition/Malnutrition Assess - Dietary Evaluation Nutrition/Malnutrition Findings: Nutrition Notes Start: 11/24/19 12:22 Freq: Status: Active Protocol: Document 01/21/20 15:55 HEATHER (Rec: 01/21/20 16:17 HEATHER [id number]) Co-Sign 01/21/20 15:55 MK Nutrition Notes Initial or Follow up Reassessment Current Diagnosis Coronary Artery Disease,Heart Failure,Respiratory Failure, Stroke,Hyperlipidemia Other Pertinent Diagnosis Partial SBO, pneu Current Diet NPO Labs/Tests BUN 22 Cr 0.7 Pertinent Medications Lasix Height 6 ft 2 in Weight 116.2 kg [place] Body Weight (kg) 86.36 BMI 32.8 Weight change and time frame Wt change noted. Pt is more often wt 116kg. On Lasix, bed wt taken. Will monitor. Weight Status Overweight Subjective/Other Information F/u TF, labs, vent, wt loss. Pt was extubated and with trach and oxygen support. Pt had trouble communicating. Nutrition focused physical exam performed by RD, noted some temporal wasting and depleted muscle in L lower leg calf and thigh. Percent of energy/protein needs met: 0%/0% Burn Absent Trauma Absent GI Symptoms None Current % PO Negligible Minimum of two criteria Yes Muscle Mass Mild Depletion (non-severe) Fluid Accumulation Mild (non-severe) Reduced Financial Aid Officer Strength Measurably Reduced (severe) #2 Nutrition Diagnosis Malnutrition Etiology chronic disease As Evidenced by Signs and Symptoms pt has temporal wasting, depletion of muscle mass in L calf and L thigh, pitting edema, and bilat weak senior air director strength. #1 Nutrition Diagnosis Inadequate oral intake Diagnosis Progress(for reassessment Continues documentation) Is patient on ventilator? No Is Patient Ambulatory and/or Out of Bed No REE-([facility]-confined to bed) 2436.756 Kcal/Kg value to use for calculation 18 Approximate Energy Requirements Using 2092 kcal/Kg Calculation Used for Recommendations Kcal/kg Additional Notes Pro needs 122-152g (1.2-1.5g/ kg AdBW 101kg) Fluid needs 1ml/kcal [ End ] Nutrition Intervention Change Diet Order: Advance diet as medically able Goal #1 Diet advancement Anticipated Discharge Needs: unable to determine Follow-Up By: 01/22/20 Additional Comments POC and diet advancement
[2020-01-22] MEDS ORDERED: FUROSEMIDE 20 MG/2 ML INJ ONE (10:06)
[2020-01-22] MEDS: FUROSEMIDE 20 MG/2 ML INJ ONE ×2 (10:08→11:33)
[2020-01-22 10:25] LABS: INR 1.34 (0.87-1.13); Partial Thromboplastin Time 31.5 Sec. (24.2-36.6)
[2020-01-22] MEDS ORDERED: SODIUM CHLORIDE 0.9% 1000 ML 1,000 ML IV SCH (11:00)
[2020-01-22] MEDS: ASPIRIN 81 MG TAB CHEW PO SCH (11:02)
[2020-01-22] MEDS: FAMOTIDINE 20 MG TAB PO SCH ×2 (11:33→21:42)
[2020-01-22] MEDS: GLYCOPYRROLATE 2 MG TAB PO SCH ×2 (11:33→21:42)
[2020-01-22] MEDS: DOCUSATE SODIUM 100 MG/10 ML ORAL LIQD FEEDTUBE SCH ×2 (11:34→21:42)
[2020-01-22] MEDS: HALOPERIDOL LACTATE 5 MG/1 ML INJ IV PRN (11:35)
[2020-01-22] MEDS: AMIODARONE 200 MG TAB PO SCH (11:35)
[2020-01-22] MEDS: CLOPIDOGREL 75 MG TAB PO SCH (11:35)
[2020-01-22] MEDS: QUEtiapine 100 MG TAB PO SCH ×2 (11:47→21:42)
--- NOTE | 2020-01-22 12:59 | Event Note ---
Date: 01/22/20 Cardiac catheterization was completed today, done via the right radial approach, no complications. We found a widely patent previous LAD stent. We found mild nonobstructive atherosclerosis of the mid right coronary artery. Otherwise the rest of the coronary system was without significant atherosclerosis. Left ventricular ejection fraction was mildly impaired at 40 to 45%. There was some hypokinesis of the basal inferior wall suggestive of previous or recent infarct. Recommendations: Guideline directed medical therapy for coronary artery disease including beta- blockers, topical nitrates, statin and clopidogrel. Resume Eliquis therapy, indication paroxysmal atrial fibrillation and pulmonary embolism during this admission.
--- NOTE | 2020-01-22 13:25 | Progress Note ---
Assessment and Plan Acute hypoxemic respiratory failure Bilateral pneumonia, community acquired. Acute LLL branch P.E. Acute DVT Person under investigation for COVID-19 infection. Acute congestive heart failure exacerbation. History of cerebrovascular accident. Acute chronic obstructive pulmonary disease exacerbation. Hypertension and hypertensive urgency at presentation. History of arthritis. Leukocytosis. Lactic acidosis. Oropharyngeal dysphagia - continue diuresis - follow electrolytes and correct as necessary - RT asked resume t-piece trials as tolerated - rest on AC qhs for now - continue Robinul & Scopolamine for secretion control - continue full anticoagulation with Apixaban - continue care as below otherwise; - continue daily SAT's and SBT assessment as tolerated - continue seroquel for anxiolysis / delirium - COVID isolation per facility protocol - prn diuresis while following electrolytes / I's & O's - continue to wean oxygen for O2 sat's > 92% - continue bronchodilators with routine trach care and pulmonary hygiene per RT - VAP bundle addressed (Aspiration precautions, HOB >40) - continue to wean per pulmonary driven protocols - sedation target is RASS 0 to -1 - continue prn analgesia per CPOT score - follow clinically re: fever curves / trend WBC - Avoid delirium (no benzodiazepines if they can be avoided) - Maintain sleep-wake cycle - enteral nutrition at goal rate as tolerated - continue accucheck's with glycemic control per SSI for target blood glucose goal of 140-180 mg/dL while critically ill; Avoid hypoglycemia - for VTE he is on IV Heparin - continue stress ulcer prophylaxis with Famotidine - continue mobility protocols for pressure ulcer prophylaxis - continue fall precautions - continue wound care management per RN / WCT - Supportive transfusions to keep HgB>7g/dL - CXR's and ABG's prn - Continue to monitor neurologic function - Continue chronic home medications - Continue all supportive care ........ re-evaluate in am & prn CONDITION: CRITICAL PROGNOSIS: GUARDED CODE STATUS: FULL CODE The high probability of a clinically significant, sudden or life threatening deterioration of the [Respiratory, cardiovascular & neurological] system(s) required my full and direct attention, intervention and personal management. The aggregate critical care time was [31] minutes without overlap. Time includes spent on [x] Data Review and interpretation [x] Patient assessment and monitoring of vital signs [x] Documentation [x] Medication orders and management Subjective Date of service: 01/22/20 Principal diagnosis: Ac hypoxemic resp failure; Pneumonia; PUI COVID-19; CHF; COPD; HTN Interval history: Patient is seen today for: Acute hypoxemic respiratory failure; Adan. Pneumonia (CAP); PUI COVID-19 infection; AE-CHF; AE-COPD; H/O CVA; HTN Seen and examined at bedside; 24 hour events reviewed; nursing and respiratory care staff consulted; no adverse overnight events reported to me; resting peacefully in bed; remains on MVS; tolerating PSV trial; cardiology evaluation ongoing re:P ? CHF with flash pulmonary edema ? ischemia; tolerating tube feeds; No N/V/F/C Objective Vital Signs - 12hr 01/22/20 01/22/20 01/22/20 01:30 01:46 02:00 Temperature Pulse Rate 109 H 118 H 117 H Pulse Rate [ From Monitor] Respiratory 28 H 26 H 27 H Rate Blood Pressure 118/86 118/86 112/84 O2 Sat by Pulse 96 94 97 Oximetry O2 Sat by Pulse Oximetry [ Assessment] 01/22/20 01/22/20 01/22/20 02:10 02:16 02:30 Temperature Pulse Rate 133 H 112 H 102 H Pulse Rate [ From Monitor] Respiratory 30 H 30 H Rate Blood Pressure 112/84 112/84 112/84 O2 Sat by Pulse 99 99 Oximetry O2 Sat by Pulse Oximetry [ Assessment] 01/22/20 01/22/20 01/22/20 02:46 03:00 03:16 Temperature Pulse Rate 106 H 101 H 102 H Pulse Rate [ From Monitor] Respiratory 32 H 29 H 32 H Rate Blood Pressure 112/84 111/83 111/83 O2 Sat by Pulse 97 98 97 Oximetry O2 Sat by Pulse Oximetry [ Assessment] 01/22/20 01/22/20 01/22/20 03:30 03:43 03:46 Temperature 98.5 F Pulse Rate 107 H 111 H Pulse Rate [ From Monitor] Respiratory 28 H 32 H Rate Blood Pressure 111/83 111/83 O2 Sat by Pulse 96 96 Oximetry O2 Sat by Pulse Oximetry [ Assessment] 01/22/20 01/22/20 01/22/20 04:00 04:16 04:30 Temperature Pulse Rate 111 H 112 H 110 H Pulse Rate [ 100 H From Monitor] Respiratory 25 H 29 H 32 H Rate Blood Pressure 127/101 127/101 127/101 O2 Sat by Pulse 98 94 95 Oximetry O2 Sat by Pulse Oximetry [ Assessment] 01/22/20 01/22/20 01/22/20 04:36 04:37 04:46 Temperature Pulse Rate 105 H 107 H Pulse Rate [ From Monitor] Respiratory 31 H Rate Blood Pressure 127/101 127/101 O2 Sat by Pulse 98 95 Oximetry O2 Sat by Pulse 97 Oximetry [ Assessment] 01/22/20 01/22/20 01/22/20 05:00 05:16 05:24 Temperature Pulse Rate 102 H 101 H 102 H Pulse Rate [ From Monitor] Respiratory 32 H 32 H Rate Blood Pressure 118/92 118/92 118/92 O2 Sat by Pulse 97 97 Oximetry O2 Sat by Pulse Oximetry [ Assessment] 01/22/20 01/22/20 01/22/20 05:30 05:46 06:00 Temperature Pulse Rate 102 H 100 H 100 H Pulse Rate [ From Monitor] Respiratory 30 H 27 H 28 H Rate Blood Pressure 118/92 118/92 100/69 O2 Sat by Pulse 97 98 98 Oximetry O2 Sat by Pulse Oximetry [ Assessment] 01/22/20 01/22/20 01/22/20 06:16 06:23 06:30 Temperature Pulse Rate 99 H 99 H 100 H Pulse Rate [ From Monitor] Respiratory 27 H 24 Rate Blood Pressure 100/69 100/69 100/69 O2 Sat by Pulse 98 99 Oximetry O2 Sat by Pulse Oximetry [ Assessment] 01/22/20 01/22/20 01/22/20 06:46 07:00 07:16 Temperature Pulse Rate 97 H 97 H 96 H Pulse Rate [ From Monitor] Respiratory 24 26 H 26 H Rate Blood Pressure 100/69 102/70 102/70 O2 Sat by Pulse 97 98 97 Oximetry O2 Sat by Pulse Oximetry [ Assessment] 01/22/20 01/22/20 01/22/20 07:30 07:46 08:00 Temperature 98.0 F Pulse Rate 97 H 99 H 98 H Pulse Rate [ 97 H From Monitor] Respiratory 28 H 26 H 32 H Rate Blood Pressure 102/70 102/70 106/69 O2 Sat by Pulse 97 97 97 Oximetry O2 Sat by Pulse Oximetry [ Assessment] 01/22/20 01/22/20 01/22/20 08:16 08:30 08:43 Temperature Pulse Rate 95 H 94 H 95 H Pulse Rate [ From Monitor] Respiratory 26 H 26 H Rate Blood Pressure 106/69 106/69 106/69 O2 Sat by Pulse 98 97 97 Oximetry O2 Sat by Pulse Oximetry [ Assessment] 01/22/20 01/22/20 01/22/20 08:46 09:00 09:16 Temperature Pulse Rate 95 H 95 H 93 H Pulse Rate [ From Monitor] Respiratory 29 H 27 H 27 H Rate Blood Pressure 106/69 106/79 106/79 O2 Sat by Pulse 98 98 97 Oximetry O2 Sat by Pulse Oximetry [ Assessment] 01/22/20 01/22/20 01/22/20 10:45 11:00 11:15 Temperature Pulse Rate 115 H 113 H 108 H Pulse Rate [ From Monitor] Respiratory 32 H 35 H Rate Blood Pressure 106/79 176/116 150/100 O2 Sat by Pulse 89 89 Oximetry O2 Sat by Pulse Oximetry [ Assessment] 01/22/20 01/22/20 01/22/20 11:31 11:45 12:00 Temperature 97.9 F Pulse Rate 102 H 95 H 92 H Pulse Rate [ 125 H From Monitor] Respiratory 31 H 29 H 26 H Rate Blood Pressure 150/100 150/100 145/77 O2 Sat by Pulse 100 97 98 Oximetry O2 Sat by Pulse Oximetry [ Assessment] 01/22/20 01/22/20 01/22/20 12:13 12:15 12:31 Temperature Pulse Rate 107 H 117 H 113 H Pulse Rate [ From Monitor] Respiratory 19 21 Rate Blood Pressure 145/77 145/77 145/77 O2 Sat by Pulse 98 99 99 Oximetry O2 Sat by Pulse Oximetry [ Assessment] 01/22/20 01/22/20 01/22/20 12:45 13:00 13:15 Temperature Pulse Rate 101 H 105 H 97 H Pulse Rate [ From Monitor] Respiratory 21 21 21 Rate Blood Pressure 128/84 112/74 112/74 O2 Sat by Pulse 100 100 100 Oximetry O2 Sat by Pulse Oximetry [ Assessment] Constitutional: no acute distress, other (elelelderly and obese male, normocephalic with mildly increased respiratory effort at rest on MVS) Eyes: non-icteric ENT: other (trach to MVS, mooderate tracheal secretions) Neck: supple, no JVD Effort: mildly labored Ascultation: Bilateral: diminished breath sounds, rhonchi, other (+ secretions) Percussion: Bilateral: not dull Cardiovascular: irregular rhythm, other (S1,S2) Gastrointestinal: normoactive bowel sounds, soft, non-tender, non-distended (protuberant), other (protuberant; PEG in place) Integumentary: normal Extremities: no cyanosis, pulses normal, no ischemia or petechiae, edema (bilateral upper ) Neurologic: non-focal exam (moves extremities), pupils equal and round, CN II- XII normal, motor strength normal and (moves all extremities) Psychiatric: anxious CBC and BMP: 01/25/20 04:25 01/25/20 04:25 ABG, PT/INR, D-dimer: ABG ABG pH 7.449 pH Units (7.350-7.450) 01/13/20 20:40 POC ABG pCO2 45.6 mmHg (32.0-48.0) 01/12/20 13:58 ABG pCO2 46.9 mm Hg 01/13/20 20:40 POC ABG pO2 76.6 mmHg (83-108) L 01/12/20 13:58 ABG pO2 65.3 mm Hg (80.0-90.0) L 01/13/20 20:40 POC ABG HCO3 31.2 01/12/20 13:58 ABG O2 Saturation 93.5 % (95.0-99.0) L 01/13/20 20:40 PT/INR, D-dimer PT 16.9 Sec. (12.2-14.9) H 01/22/20 09:58 INR 1.34 (0.87-1.13) H 01/22/20 09:58 Abnormal lab findings: Abnormal Labs 11/24/19 11/24/19 11/24/19 02:53 02:53 03:45 WBC 14.3 H RBC Hgb Hct MCHC RDW 17.2 H MCV MCH Lymph % (Auto) [place] % (Auto) [place] # Eos # Lymph # (Auto) [place] # (Auto) Eos # (Auto) Seg Neutrophils % Seg Neuts % (Manual) Baso # (Auto) Lymphocytes % (Manual) Monocytes % (Manual) Eosinophils % (Manual) Basophils % (Manual) Seg Neutrophils # Seg Neutrophils # Man 8.3 H Lymphocytes # (Manual) Monocytes # (Manual) 0.9 H Eosinophils # (Manual) Nucleated RBC % Basophils # (Manual) PT INR APTT Heparin Anti-Xa Level ABG pH 7.313 L POC ABG pO2 ABG pO2 102.8 H ABG HCO3 ABG O2 Saturation ABG Base Excess -2.9 L POC ABG pCO2 ABG Hemoglobin ABG Oxyhemoglobin ABG Glucose Oxyhemoglobin 93.9 L Sodium Potassium Chloride Carbon Dioxide BUN Creatinine Glucose 195 H POC Glucose Lactic Acid Calcium Phosphorus Magnesium AST ALT Lactate Dehydrogenase CK-MB (CK-2) 4.3 H C-Reactive Protein NT-Pro-B Natriuret Pep 1181 H Total Protein Albumin Arterial Blood Glucose Urine WBC (Auto) 11/24/19 11/24/19 11/24/19 04:53 04:53 10:37 WBC RBC Hgb Hct MCHC RDW MCV MCH Lymph % (Auto) [place] % (Auto) [place] # Eos # Lymph # (Auto) [place] # (Auto) Eos # (Auto) Seg Neutrophils % Seg Neuts % (Manual) Baso # (Auto) Lymphocytes % (Manual) Monocytes % (Manual) Eosinophils % (Manual) Basophils % (Manual) Seg Neutrophils # Seg Neutrophils # Man Lymphocytes # (Manual) Monocytes # (Manual) Eosinophils # (Manual) Nucleated RBC % Basophils # (Manual) PT INR APTT Heparin Anti-Xa Level ABG pH POC ABG pO2 ABG pO2 ABG HCO3 ABG O2 Saturation ABG Base Excess POC ABG pCO2 ABG Hemoglobin ABG Oxyhemoglobin ABG Glucose Oxyhemoglobin Sodium Potassium Chloride Carbon Dioxide BUN Creatinine Glucose 162 H POC Glucose Lactic Acid 2.40 H* 2.50 H* Calcium Phosphorus Magnesium AST ALT Lactate Dehydrogenase 240 H CK-MB (CK-2) C-Reactive Protein NT-Pro-B Natriuret Pep Total Protein Albumin Arterial Blood Glucose Urine WBC (Auto) 11/24/19 11/24/19 11/24/19 12:21 14:50 19:54 WBC RBC Hgb Hct MCHC RDW MCV MCH Lymph % (Auto) [place] % (Auto) [place] # Eos # Lymph # (Auto) [place] # (Auto) Eos # (Auto) Seg Neutrophils % Seg Neuts % (Manual) Baso # (Auto) Lymphocytes % (Manual) Monocytes % (Manual) Eosinophils % (Manual) Basophils % (Manual) Seg Neutrophils # Seg Neutrophils # Man Lymphocytes # (Manual) Monocytes # (Manual) Eosinophils # (Manual) Nucleated RBC % Basophils # (Manual) PT INR APTT Heparin Anti-Xa Level ABG pH POC ABG pO2 ABG pO2 ABG HCO3 ABG O2 Saturation ABG Base Excess POC ABG pCO2 ABG Hemoglobin ABG Oxyhemoglobin ABG Glucose Oxyhemoglobin Sodium Potassium Chloride Carbon Dioxide BUN Creatinine Glucose POC Glucose 145 H 143 H 124 H Lactic Acid Calcium Phosphorus Magnesium AST ALT Lactate Dehydrogenase CK-MB (CK-2) C-Reactive Protein NT-Pro-B Natriuret Pep Total Protein Albumin Arterial Blood Glucose Urine WBC (Auto) 11/25/19 11/25/19 11/25/19 00:18 03:18 05:11 WBC 13.7 H RBC Hgb Hct MCHC RDW 17.1 H MCV MCH Lymph % (Auto) 10.8 L [place] % (Auto) 8.7 H [place] # 1.2 H Eos # Lymph # (Auto) [place] # (Auto) Eos # (Auto) Seg Neutrophils % 80.2 H Seg Neuts % (Manual) Baso # (Auto) Lymphocytes % (Manual) Monocytes % (Manual) Eosinophils % (Manual) Basophils % (Manual) Seg Neutrophils # 11.0 H Seg Neutrophils # Man Lymphocytes # (Manual) Monocytes # (Manual) Eosinophils # (Manual) Nucleated RBC % Basophils # (Manual) PT INR APTT Heparin Anti-Xa Level ABG pH 7.333 L POC ABG pO2 ABG pO2 61.2 L ABG HCO3 ABG O2 Saturation 90.2 L ABG Base Excess POC ABG pCO2 ABG Hemoglobin 13.7 L ABG Oxyhemoglobin ABG Glucose Oxyhemoglobin 88.2 L Sodium Potassium Chloride Carbon Dioxide BUN Creatinine Glucose POC Glucose 109 H Lactic Acid Calcium Phosphorus Magnesium AST ALT Lactate Dehydrogenase CK-MB (CK-2) C-Reactive Protein NT-Pro-B Natriuret Pep Total Protein Albumin Arterial Blood Glucose Urine WBC (Auto) 11/25/19 11/25/19 11/26/19 05:11 11:40 03:12 WBC RBC Hgb Hct MCHC RDW MCV MCH Lymph % (Auto) [place] % (Auto) [place] # Eos # Lymph # (Auto) [place] # (Auto) Eos # (Auto) Seg Neutrophils % Seg Neuts % (Manual) Baso # (Auto) Lymphocytes % (Manual) Monocytes % (Manual) Eosinophils % (Manual) Basophils % (Manual) Seg Neutrophils # Seg Neutrophils # Man Lymphocytes # (Manual) Monocytes # (Manual) Eosinophils # (Manual) Nucleated RBC % Basophils # (Manual) PT INR APTT Heparin Anti-Xa Level ABG pH POC ABG pO2 ABG pO2 155.1 H ABG HCO3 27.8 H ABG O2 Saturation ABG Base Excess POC ABG pCO2 ABG Hemoglobin 12.2 L ABG Oxyhemoglobin ABG Glucose Oxyhemoglobin Sodium Potassium Chloride Carbon Dioxide BUN 23 H Creatinine Glucose 110 H POC Glucose 108 H Lactic Acid Calcium Phosphorus Magnesium AST ALT Lactate Dehydrogenase CK-MB (CK-2) C-Reactive Protein NT-Pro-B Natriuret Pep Total Protein Albumin Arterial Blood Glucose Urine WBC (Auto) 11/26/19 11/26/19 11/26/19 06:17 10:43 10:43 WBC 11.4 H RBC Hgb Hct MCHC RDW 17.1 H MCV MCH Lymph % (Auto) [place] % (Auto) [place] # Eos # Lymph # (Auto) [place] # (Auto) Eos # (Auto) Seg Neutrophils % Seg Neuts % (Manual) Baso # (Auto) Lymphocytes % (Manual) Monocytes % (Manual) Eosinophils % (Manual) Basophils % (Manual) Seg Neutrophils # Seg Neutrophils # Man Lymphocytes # (Manual) Monocytes # (Manual) Eosinophils # (Manual) Nucleated RBC % Basophils # (Manual) PT INR APTT Heparin Anti-Xa Level ABG pH POC ABG pO2 ABG pO2 ABG HCO3 ABG O2 Saturation ABG Base Excess POC ABG pCO2 ABG Hemoglobin ABG Oxyhemoglobin ABG Glucose Oxyhemoglobin Sodium Potassium Chloride Carbon Dioxide BUN 29 H Creatinine Glucose POC Glucose 107 H Lactic Acid Calcium Phosphorus Magnesium AST ALT Lactate Dehydrogenase CK-MB (CK-2) C-Reactive Protein NT-Pro-B Natriuret Pep Total Protein Albumin Arterial Blood Glucose Urine WBC (Auto) 11/26/19 11/27/19 11/27/19 17:11 01:53 04:11 WBC RBC Hgb Hct MCHC RDW MCV MCH Lymph % (Auto) [place] % (Auto) [place] # Eos # Lymph # (Auto) [place] # (Auto) Eos # (Auto) Seg Neutrophils % Seg Neuts % (Manual) Baso # (Auto) Lymphocytes % (Manual) Monocytes % (Manual) Eosinophils % (Manual) Basophils % (Manual) Seg Neutrophils # Seg Neutrophils # Man Lymphocytes # (Manual) Monocytes # (Manual) Eosinophils # (Manual) Nucleated RBC % Basophils # (Manual) PT INR APTT Heparin Anti-Xa Level ABG pH POC ABG pO2 ABG pO2 ABG HCO3 29.2 H ABG O2 Saturation ABG Base Excess 3.4 H POC ABG pCO2 ABG Hemoglobin 13.3 L ABG Oxyhemoglobin ABG Glucose Oxyhemoglobin 94.5 L Sodium Potassium Chloride Carbon Dioxide BUN Creatinine Glucose POC Glucose 113 H 108 H Lactic Acid Calcium Phosphorus Magnesium AST ALT Lactate Dehydrogenase CK-MB (CK-2) C-Reactive Protein NT-Pro-B Natriuret Pep Total Protein Albumin Arterial Blood Glucose Urine WBC (Auto) 11/27/19 11/28/19 11/28/19 05:27 05:00 05:25 WBC RBC Hgb Hct MCHC RDW MCV MCH Lymph % (Auto) [place] % (Auto) [place] # Eos # Lymph # (Auto) [place] # (Auto) Eos # (Auto) Seg Neutrophils % Seg Neuts % (Manual) Baso # (Auto) Lymphocytes % (Manual) Monocytes % (Manual) Eosinophils % (Manual) Basophils % (Manual) Seg Neutrophils # Seg Neutrophils # Man Lymphocytes # (Manual) Monocytes # (Manual) Eosinophils # (Manual) Nucleated RBC % Basophils # (Manual) PT INR APTT Heparin Anti-Xa Level ABG pH POC ABG pO2 68.1 L ABG pO2 ABG HCO3 ABG O2 Saturation ABG Base Excess POC ABG pCO2 ABG Hemoglobin ABG Oxyhemoglobin 91.2 L ABG Glucose Oxyhemoglobin Sodium Potassium Chloride Carbon Dioxide BUN Creatinine Glucose POC Glucose 111 H 110 H Lactic Acid Calcium Phosphorus Magnesium AST ALT Lactate Dehydrogenase CK-MB (CK-2) C-Reactive Protein NT-Pro-B Natriuret Pep Total Protein Albumin Arterial Blood Glucose Urine WBC (Auto) 11/28/19 11/28/19 11/28/19 12:08 13:47 13:47 WBC 11.3 H RBC Hgb Hct MCHC RDW 16.1 H MCV MCH Lymph % (Auto) [place] % (Auto) 9.9 H [place] # 1.1 H Eos # Lymph # (Auto) [place] # (Auto) Eos # (Auto) Seg Neutrophils % 71.4 H Seg Neuts % (Manual) Baso # (Auto) Lymphocytes % (Manual) Monocytes % (Manual) Eosinophils % (Manual) Basophils % (Manual) Seg Neutrophils # 8.1 H Seg Neutrophils # Man Lymphocytes # (Manual) Monocytes # (Manual) Eosinophils # (Manual) Nucleated RBC % Basophils # (Manual) PT INR APTT Heparin Anti-Xa Level ABG pH POC ABG pO2 ABG pO2 ABG HCO3 ABG O2 Saturation ABG Base Excess POC ABG pCO2 ABG Hemoglobin ABG Oxyhemoglobin ABG Glucose Oxyhemoglobin Sodium Potassium Chloride Carbon Dioxide BUN 23 H Creatinine Glucose 123 H POC Glucose 112 H Lactic Acid Calcium Phosphorus Magnesium AST ALT Lactate Dehydrogenase CK-MB (CK-2) C-Reactive Protein NT-Pro-B Natriuret Pep Total Protein Albumin 3.7 L Arterial Blood Glucose Urine WBC (Auto) 11/28/19 11/29/19 11/29/19 17:26 03:55 17:04 WBC RBC Hgb Hct MCHC RDW MCV MCH Lymph % (Auto) [place] % (Auto) [place] # Eos # Lymph # (Auto) [place] # (Auto) Eos # (Auto) Seg Neutrophils % Seg Neuts % (Manual) Baso # (Auto) Lymphocytes % (Manual) Monocytes % (Manual) Eosinophils % (Manual) Basophils % (Manual) Seg Neutrophils # Seg Neutrophils # Man Lymphocytes # (Manual) Monocytes # (Manual) Eosinophils # (Manual) Nucleated RBC % Basophils # (Manual) PT INR APTT Heparin Anti-Xa Level ABG pH POC ABG pO2 ABG pO2 65.7 L ABG HCO3 28.3 H ABG O2 Saturation 93.9 L ABG Base Excess 3.6 H POC ABG pCO2 ABG Hemoglobin 13.3 L ABG Oxyhemoglobin ABG Glucose Oxyhemoglobin 91.5 L Sodium Potassium Chloride Carbon Dioxide BUN Creatinine Glucose POC Glucose 123 H 119 H Lactic Acid Calcium Phosphorus Magnesium AST ALT Lactate Dehydrogenase CK-MB (CK-2) C-Reactive Protein NT-Pro-B Natriuret Pep Total Protein Albumin Arterial Blood Glucose Urine WBC (Auto) 11/30/19 11/30/19 11/30/19 04:17 04:17 04:56 WBC 13.4 H RBC Hgb Hct MCHC RDW 15.6 H MCV MCH Lymph % (Auto) [place] % (Auto) [place] # Eos # Lymph # (Auto) [place] # (Auto) Eos # (Auto) Seg Neutrophils % Seg Neuts % (Manual) Baso # (Auto) Lymphocytes % (Manual) Monocytes % (Manual) Eosinophils % (Manual) Basophils % (Manual) Seg Neutrophils # Seg Neutrophils # Man Lymphocytes # (Manual) Monocytes # (Manual) Eosinophils # (Manual) Nucleated RBC % Basophils # (Manual) PT INR APTT Heparin Anti-Xa Level ABG pH POC ABG pO2 ABG pO2 56.3 L ABG HCO3 29.3 H ABG O2 Saturation 91.5 L ABG Base Excess 4.7 H POC ABG pCO2 ABG Hemoglobin 12.1 L ABG Oxyhemoglobin ABG Glucose Oxyhemoglobin 89.2 L Sodium 147 H Potassium Chloride Carbon Dioxide BUN 30 H Creatinine Glucose 124 H POC Glucose Lactic Acid Calcium Phosphorus Magnesium AST ALT Lactate Dehydrogenase CK-MB (CK-2) C-Reactive Protein NT-Pro-B Natriuret Pep Total Protein Albumin 3.8 L Arterial Blood Glucose Urine WBC (Auto) 11/30/19 11/30/19 11/30/19 05:51 11:54 18:17 WBC RBC Hgb Hct MCHC RDW MCV MCH Lymph % (Auto) [place] % (Auto) [place] # Eos # Lymph # (Auto) [place] # (Auto) Eos # (Auto) Seg Neutrophils % Seg Neuts % (Manual) Baso # (Auto) Lymphocytes % (Manual) Monocytes % (Manual) Eosinophils % (Manual) Basophils % (Manual) Seg Neutrophils # Seg Neutrophils # Man Lymphocytes # (Manual) Monocytes # (Manual) Eosinophils # (Manual) Nucleated RBC % Basophils # (Manual) PT INR APTT Heparin Anti-Xa Level ABG pH POC ABG pO2 ABG pO2 ABG HCO3 ABG O2 Saturation ABG Base Excess POC ABG pCO2 ABG Hemoglobin ABG Oxyhemoglobin ABG Glucose Oxyhemoglobin Sodium Potassium Chloride Carbon Dioxide BUN Creatinine Glucose POC Glucose 127 H 115 H 143 H Lactic Acid Calcium Phosphorus Magnesium AST ALT Lactate Dehydrogenase CK-MB (CK-2) C-Reactive Protein NT-Pro-B Natriuret Pep Total Protein Albumin Arterial Blood Glucose Urine WBC (Auto) 12/01/19 12/01/19 12/01/19 01:18 05:22 12:16 WBC RBC Hgb Hct MCHC RDW MCV MCH Lymph % (Auto) [place] % (Auto) [place] # Eos # Lymph # (Auto) [place] # (Auto) Eos # (Auto) Seg Neutrophils % Seg Neuts % (Manual) Baso # (Auto) Lymphocytes % (Manual) Monocytes % (Manual) Eosinophils % (Manual) Basophils % (Manual) Seg Neutrophils # Seg Neutrophils # Man Lymphocytes # (Manual) Monocytes # (Manual) Eosinophils # (Manual) Nucleated RBC % Basophils # (Manual) PT INR APTT Heparin Anti-Xa Level ABG pH POC ABG pO2 ABG pO2 ABG HCO3 ABG O2 Saturation ABG Base Excess POC ABG pCO2 ABG Hemoglobin ABG Oxyhemoglobin ABG Glucose Oxyhemoglobin Sodium Potassium 3.5 L Chloride 107.8 H Carbon Dioxide BUN 37 H Creatinine Glucose 157 H POC Glucose 118 H 148 H Lactic Acid Calcium 8.2 L D Phosphorus Magnesium AST 48 H ALT 60 H Lactate Dehydrogenase 194 H CK-MB (CK-2) C-Reactive Protein 8.50 H NT-Pro-B Natriuret Pep Total Protein 5.5 L Albumin 2.8 L Arterial Blood Glucose Urine WBC (Auto) 12/01/19 12/02/19 12/02/19 18:04 00:05 05:16 WBC 11.4 H RBC Hgb Hct MCHC RDW 15.9 H MCV MCH Lymph % (Auto) [place] % (Auto) 9.9 H [place] # 1.1 H Eos # Lymph # (Auto) [place] # (Auto) Eos # (Auto) Seg Neutrophils % 70.3 H Seg Neuts % (Manual) Baso # (Auto) Lymphocytes % (Manual) Monocytes % (Manual) Eosinophils % (Manual) Basophils % (Manual) Seg Neutrophils # 8.0 H Seg Neutrophils # Man Lymphocytes # (Manual) Monocytes # (Manual) Eosinophils # (Manual) Nucleated RBC % Basophils # (Manual) PT INR APTT Heparin Anti-Xa Level ABG pH POC ABG pO2 ABG pO2 ABG HCO3 ABG O2 Saturation ABG Base Excess POC ABG pCO2 ABG Hemoglobin ABG Oxyhemoglobin ABG Glucose Oxyhemoglobin Sodium Potassium Chloride Carbon Dioxide BUN Creatinine Glucose POC Glucose 143 H 107 H Lactic Acid Calcium Phosphorus Magnesium AST ALT Lactate Dehydrogenase CK-MB (CK-2) C-Reactive Protein NT-Pro-B Natriuret Pep Total Protein Albumin Arterial Blood Glucose Urine WBC (Auto) 12/02/19 12/02/19 12/02/19 05:16 06:03 11:52 WBC RBC Hgb Hct MCHC RDW MCV MCH Lymph % (Auto) [place] % (Auto) [place] # Eos # Lymph # (Auto) [place] # (Auto) Eos # (Auto) Seg Neutrophils % Seg Neuts % (Manual) Baso # (Auto) Lymphocytes % (Manual) Monocytes % (Manual) Eosinophils % (Manual) Basophils % (Manual) Seg Neutrophils # Seg Neutrophils # Man Lymphocytes # (Manual) Monocytes # (Manual) Eosinophils # (Manual) Nucleated RBC % Basophils # (Manual) PT INR APTT Heparin Anti-Xa Level ABG pH POC ABG pO2 ABG pO2 ABG HCO3 ABG O2 Saturation ABG Base Excess POC ABG pCO2 ABG Hemoglobin ABG Oxyhemoglobin ABG Glucose Oxyhemoglobin Sodium 146 H Potassium Chloride Carbon Dioxide BUN 28 H Creatinine Glucose 123 H POC Glucose 110 H 152 H Lactic Acid Calcium Phosphorus Magnesium AST ALT Lactate Dehydrogenase CK-MB (CK-2) C-Reactive Protein NT-Pro-B Natriuret Pep Total Protein Albumin Arterial Blood Glucose Urine WBC (Auto) 12/02/19 12/02/19 12/02/19 12:58 17:58 23:36 WBC RBC Hgb Hct MCHC RDW MCV MCH Lymph % (Auto) [place] % (Auto) [place] # Eos # Lymph # (Auto) [place] # (Auto) Eos # (Auto) Seg Neutrophils % Seg Neuts % (Manual) Baso # (Auto) Lymphocytes % (Manual) Monocytes % (Manual) Eosinophils % (Manual) Basophils % (Manual) Seg Neutrophils # Seg Neutrophils # Man Lymphocytes # (Manual) Monocytes # (Manual) Eosinophils # (Manual) Nucleated RBC % Basophils # (Manual) PT INR APTT Heparin Anti-Xa Level ABG pH POC ABG pO2 78.1 L ABG pO2 ABG HCO3 ABG O2 Saturation ABG Base Excess POC ABG pCO2 ABG Hemoglobin ABG Oxyhemoglobin ABG Glucose Oxyhemoglobin Sodium Potassium Chloride Carbon Dioxide BUN Creatinine Glucose POC Glucose 120 H 123 H Lactic Acid Calcium Phosphorus Magnesium AST ALT Lactate Dehydrogenase CK-MB (CK-2) C-Reactive Protein NT-Pro-B Natriuret Pep Total Protein Albumin Arterial Blood Glucose Urine WBC (Auto) 12/03/19 12/03/19 12/03/19 06:03 06:14 11:46 WBC RBC Hgb Hct MCHC RDW MCV MCH Lymph % (Auto) [place] % (Auto) [place] # Eos # Lymph # (Auto) [place] # (Auto) Eos # (Auto) Seg Neutrophils % Seg Neuts % (Manual) Baso # (Auto) Lymphocytes % (Manual) Monocytes % (Manual) Eosinophils % (Manual) Basophils % (Manual) Seg Neutrophils # Seg Neutrophils # Man Lymphocytes # (Manual) Monocytes # (Manual) Eosinophils # (Manual) Nucleated RBC % Basophils # (Manual) PT INR APTT Heparin Anti-Xa Level ABG pH POC ABG pO2 ABG pO2 ABG HCO3 ABG O2 Saturation ABG Base Excess POC ABG pCO2 ABG Hemoglobin ABG Oxyhemoglobin ABG Glucose Oxyhemoglobin Sodium Potassium Chloride Carbon Dioxide BUN Creatinine Glucose POC Glucose 142 H 130 H Lactic Acid Calcium Phosphorus Magnesium AST ALT Lactate Dehydrogenase CK-MB (CK-2) C-Reactive Protein NT-Pro-B Natriuret Pep Total Protein Albumin Arterial Blood Glucose Urine WBC (Auto) 8.0 H 12/03/19 12/03/19 12/04/19 15:50 17:39 00:04 WBC RBC Hgb Hct MCHC RDW MCV MCH Lymph % (Auto) [place] % (Auto) [place] # Eos # Lymph # (Auto) [place] # (Auto) Eos # (Auto) Seg Neutrophils % Seg Neuts % (Manual) Baso # (Auto) Lymphocytes % (Manual) Monocytes % (Manual) Eosinophils % (Manual) Basophils % (Manual) Seg Neutrophils # Seg Neutrophils # Man Lymphocytes # (Manual) Monocytes # (Manual) Eosinophils # (Manual) Nucleated RBC % Basophils # (Manual) PT INR APTT Heparin Anti-Xa Level ABG pH POC ABG pO2 ABG pO2 ABG HCO3 ABG O2 Saturation ABG Base Excess POC ABG pCO2 ABG Hemoglobin ABG Oxyhemoglobin ABG Glucose Oxyhemoglobin Sodium Potassium Chloride Carbon Dioxide BUN Creatinine Glucose POC Glucose 146 H 133 H Lactic Acid Calcium Phosphorus 2.40 L Magnesium AST ALT Lactate Dehydrogenase CK-MB (CK-2) C-Reactive Protein NT-Pro-B Natriuret Pep Total Protein Albumin Arterial Blood Glucose Urine WBC (Auto) 12/04/19 12/04/19 12/04/19 03:58 03:58 05:22 WBC 12.5 H RBC Hgb 11.2 L Hct 35.2 L MCHC RDW 16.0 H MCV MCH Lymph % (Auto) [place] % (Auto) 9.6 H [place] # 1.2 H Eos # 0.5 H Lymph # (Auto) [place] # (Auto) Eos # (Auto) Seg Neutrophils % Seg Neuts % (Manual) Baso # (Auto) Lymphocytes % (Manual) Monocytes % (Manual) Eosinophils % (Manual) Basophils % (Manual) Seg Neutrophils # 8.6 H Seg Neutrophils # Man Lymphocytes # (Manual) Monocytes # (Manual) Eosinophils # (Manual) Nucleated RBC % Basophils # (Manual) PT INR APTT Heparin Anti-Xa Level ABG pH POC ABG pO2 ABG pO2 ABG HCO3 ABG O2 Saturation ABG Base Excess POC ABG pCO2 ABG Hemoglobin ABG Oxyhemoglobin ABG Glucose Oxyhemoglobin Sodium 146 H Potassium Chloride 108.6 H Carbon Dioxide BUN 30 H Creatinine 0.7 L Glucose 121 H POC Glucose 132 H Lactic Acid Calcium Phosphorus Magnesium AST ALT Lactate Dehydrogenase CK-MB (CK-2) C-Reactive Protein NT-Pro-B Natriuret Pep Total Protein Albumin Arterial Blood Glucose Urine WBC (Auto) 12/04/19 12/04/19 12/05/19 13:26 18:43 00:19 WBC RBC Hgb Hct MCHC RDW MCV MCH Lymph % (Auto) [place] % (Auto) [place] # Eos # Lymph # (Auto) [place] # (Auto) Eos # (Auto) Seg Neutrophils % Seg Neuts % (Manual) Baso # (Auto) Lymphocytes % (Manual) Monocytes % (Manual) Eosinophils % (Manual) Basophils % (Manual) Seg Neutrophils # Seg Neutrophils # Man Lymphocytes # (Manual) Monocytes # (Manual) Eosinophils # (Manual) Nucleated RBC % Basophils # (Manual) PT INR APTT Heparin Anti-Xa Level ABG pH POC ABG pO2 ABG pO2 ABG HCO3 ABG O2 Saturation ABG Base Excess POC ABG pCO2 ABG Hemoglobin ABG Oxyhemoglobin ABG Glucose Oxyhemoglobin Sodium Potassium Chloride Carbon Dioxide BUN Creatinine Glucose POC Glucose 185 H 156 H 150 H Lactic Acid Calcium Phosphorus Magnesium AST ALT Lactate Dehydrogenase CK-MB (CK-2) C-Reactive Protein NT-Pro-B Natriuret Pep Total Protein Albumin Arterial Blood Glucose Urine WBC (Auto) 12/05/19 12/05/19 12/05/19 03:37 03:37 05:14 WBC 16.3 H RBC Hgb 11.4 L Hct MCHC RDW 15.6 H MCV MCH Lymph % (Auto) 9.9 L [place] % (Auto) 9.7 H [place] # 1.6 H Eos # Lymph # (Auto) [place] # (Auto) Eos # (Auto) Seg Neutrophils % 78.0 H Seg Neuts % (Manual) Baso # (Auto) Lymphocytes % (Manual) Monocytes % (Manual) Eosinophils % (Manual) Basophils % (Manual) Seg Neutrophils # 12.7 H Seg Neutrophils # Man Lymphocytes # (Manual) Monocytes # (Manual) Eosinophils # (Manual) Nucleated RBC % Basophils # (Manual) PT INR APTT Heparin Anti-Xa Level ABG pH POC ABG pO2 ABG pO2 ABG HCO3 ABG O2 Saturation ABG Base Excess POC ABG pCO2 ABG Hemoglobin ABG Oxyhemoglobin ABG Glucose Oxyhemoglobin Sodium 146 H Potassium Chloride 107.2 H Carbon Dioxide BUN 27 H Creatinine 0.7 L Glucose 171 H POC Glucose 168 H Lactic Acid Calcium Phosphorus Magnesium AST ALT Lactate Dehydrogenase CK-MB (CK-2) C-Reactive Protein NT-Pro-B Natriuret Pep Total Protein Albumin Arterial Blood Glucose Urine WBC (Auto) 12/05/19 12/05/19 12/05/19 12:31 18:10 23:58 WBC RBC Hgb Hct MCHC RDW MCV MCH Lymph % (Auto) [place] % (Auto) [place] # Eos # Lymph # (Auto) [place] # (Auto) Eos # (Auto) Seg Neutrophils % Seg Neuts % (Manual) Baso # (Auto) Lymphocytes % (Manual) Monocytes % (Manual) Eosinophils % (Manual) Basophils % (Manual) Seg Neutrophils # Seg Neutrophils # Man Lymphocytes # (Manual) Monocytes # (Manual) Eosinophils # (Manual) Nucleated RBC % Basophils # (Manual) PT INR APTT Heparin Anti-Xa Level ABG pH POC ABG pO2 ABG pO2 ABG HCO3 ABG O2 Saturation ABG Base Excess POC ABG pCO2 ABG Hemoglobin ABG Oxyhemoglobin ABG Glucose Oxyhemoglobin Sodium Potassium Chloride Carbon Dioxide BUN Creatinine Glucose POC Glucose 159 H 198 H 115 H Lactic Acid Calcium Phosphorus Magnesium AST ALT Lactate Dehydrogenase CK-MB (CK-2) C-Reactive Protein NT-Pro-B Natriuret Pep Total Protein Albumin Arterial Blood Glucose Urine WBC (Auto) 12/06/19 12/06/19 12/06/19 05:24 05:24 05:25 WBC 14.9 H RBC Hgb 10.8 L Hct 34.0 L MCHC RDW 15.6 H MCV MCH Lymph % (Auto) 10.7 L [place] % (Auto) 8.3 H [place] # 1.2 H Eos # Lymph # (Auto) [place] # (Auto) Eos # (Auto) Seg Neutrophils % 78.7 H Seg Neuts % (Manual) Baso # (Auto) Lymphocytes % (Manual) Monocytes % (Manual) Eosinophils % (Manual) Basophils % (Manual) Seg Neutrophils # 11.7 H Seg Neutrophils # Man Lymphocytes # (Manual) Monocytes # (Manual) Eosinophils # (Manual) Nucleated RBC % Basophils # (Manual) PT INR APTT Heparin Anti-Xa Level ABG pH POC ABG pO2 ABG pO2 ABG HCO3 ABG O2 Saturation ABG Base Excess POC ABG pCO2 ABG Hemoglobin ABG Oxyhemoglobin ABG Glucose Oxyhemoglobin Sodium 148 H Potassium 5.1 H Chloride 107.6 H Carbon Dioxide BUN 27 H Creatinine 0.7 L Glucose 155 H POC Glucose 157 H Lactic Acid Calcium Phosphorus Magnesium AST ALT Lactate Dehydrogenase CK-MB (CK-2) C-Reactive Protein NT-Pro-B Natriuret Pep Total Protein Albumin Arterial Blood Glucose Urine WBC (Auto) 12/07/19 12/07/19 12/07/19 00:13 05:34 11:33 WBC RBC Hgb Hct MCHC RDW MCV MCH Lymph % (Auto) [place] % (Auto) [place] # Eos # Lymph # (Auto) [place] # (Auto) Eos # (Auto) Seg Neutrophils % Seg Neuts % (Manual) Baso # (Auto) Lymphocytes % (Manual) Monocytes % (Manual) Eosinophils % (Manual) Basophils % (Manual) Seg Neutrophils # Seg Neutrophils # Man Lymphocytes # (Manual) Monocytes # (Manual) Eosinophils # (Manual) Nucleated RBC % Basophils # (Manual) PT INR APTT Heparin Anti-Xa Level ABG pH POC ABG pO2 ABG pO2 ABG HCO3 ABG O2 Saturation ABG Base Excess POC ABG pCO2 ABG Hemoglobin ABG Oxyhemoglobin ABG Glucose Oxyhemoglobin Sodium Potassium Chloride Carbon Dioxide BUN Creatinine Glucose POC Glucose 142 H 111 H 169 H Lactic Acid Calcium Phosphorus Magnesium AST ALT Lactate Dehydrogenase CK-MB (CK-2) C-Reactive Protein NT-Pro-B Natriuret Pep Total Protein Albumin Arterial Blood Glucose Urine WBC (Auto) 12/07/19 12/07/19 12/07/19 12:41 13:25 18:19 WBC 12.4 H RBC 3.53 L Hgb 10.2 L Hct 32.1 L MCHC RDW 15.3 H MCV MCH Lymph % (Auto) 10.6 L [place] % (Auto) 7.8 H [place] # 1.0 H Eos # Lymph # (Auto) [place] # (Auto) Eos # (Auto) Seg Neutrophils % 77.6 H Seg Neuts % (Manual) Baso # (Auto) Lymphocytes % (Manual) Monocytes % (Manual) Eosinophils % (Manual) Basophils % (Manual) Seg Neutrophils # 9.6 H Seg Neutrophils # Man Lymphocytes # (Manual) Monocytes # (Manual) Eosinophils # (Manual) Nucleated RBC % Basophils # (Manual) PT INR APTT Heparin Anti-Xa Level ABG pH POC ABG pO2 ABG pO2 ABG HCO3 ABG O2 Saturation ABG Base Excess POC ABG pCO2 ABG Hemoglobin ABG Oxyhemoglobin ABG Glucose Oxyhemoglobin Sodium 149 H Potassium Chloride 108.4 H Carbon Dioxide BUN 26 H Creatinine 0.6 L Glucose 149 H POC Glucose 164 H Lactic Acid Calcium Phosphorus Magnesium 2.60 H AST 121 H ALT 145 H Lactate Dehydrogenase CK-MB (CK-2) C-Reactive Protein NT-Pro-B Natriuret Pep Total Protein Albumin 2.6 L Arterial Blood Glucose Urine WBC (Auto) 12/07/19 12/08/19 12/08/19 22:25 00:02 03:55 WBC 13.3 H RBC 3.40 L Hgb 9.7 L Hct 30.8 L MCHC 31 L RDW 15.5 H MCV MCH Lymph % (Auto) [place] % (Auto) 8.1 H [place] # 1.1 H Eos # Lymph # (Auto) [place] # (Auto) Eos # (Auto) Seg Neutrophils % 73.0 H Seg Neuts % (Manual) Baso # (Auto) Lymphocytes % (Manual) Monocytes % (Manual) Eosinophils % (Manual) Basophils % (Manual) Seg Neutrophils # 9.7 H Seg Neutrophils # Man Lymphocytes # (Manual) Monocytes # (Manual) Eosinophils # (Manual) Nucleated RBC % Basophils # (Manual) PT INR APTT Heparin Anti-Xa Level 0.12 L ABG pH POC ABG pO2 ABG pO2 ABG HCO3 ABG O2 Saturation ABG Base Excess POC ABG pCO2 ABG Hemoglobin ABG Oxyhemoglobin ABG Glucose Oxyhemoglobin Sodium Potassium Chloride Carbon Dioxide BUN Creatinine Glucose POC Glucose 151 H Lactic Acid Calcium Phosphorus Magnesium AST ALT Lactate Dehydrogenase CK-MB (CK-2) C-Reactive Protein NT-Pro-B Natriuret Pep Total Protein Albumin Arterial Blood Glucose Urine WBC (Auto) 12/08/19 12/08/19 12/08/19 03:55 05:21 06:01 WBC RBC Hgb Hct MCHC RDW MCV MCH Lymph % (Auto) [place] % (Auto) [place] # Eos # Lymph # (Auto) [place] # (Auto) Eos # (Auto) Seg Neutrophils % Seg Neuts % (Manual) Baso # (Auto) Lymphocytes % (Manual) Monocytes % (Manual) Eosinophils % (Manual) Basophils % (Manual) Seg Neutrophils # Seg Neutrophils # Man Lymphocytes # (Manual) Monocytes # (Manual) Eosinophils # (Manual) Nucleated RBC % Basophils # (Manual) PT INR APTT Heparin Anti-Xa Level 0.20 L ABG pH POC ABG pO2 ABG pO2 ABG HCO3 ABG O2 Saturation ABG Base Excess POC ABG pCO2 ABG Hemoglobin ABG Oxyhemoglobin ABG Glucose Oxyhemoglobin Sodium 149 H Potassium Chloride 108.0 H Carbon Dioxide BUN 28 H Creatinine 0.6 L Glucose 144 H POC Glucose 143 H Lactic Acid Calcium Phosphorus Magnesium AST 98 H ALT 145 H Lactate Dehydrogenase CK-MB (CK-2) C-Reactive Protein NT-Pro-B Natriuret Pep Total Protein 6.0 L Albumin 2.4 L Arterial Blood Glucose Urine WBC (Auto) 12/08/19 12/08/19 12/08/19 12:08 18:11 23:53 WBC RBC Hgb Hct MCHC RDW MCV MCH Lymph % (Auto) [place] % (Auto) [place] # Eos # Lymph # (Auto) [place] # (Auto) Eos # (Auto) Seg Neutrophils % Seg Neuts % (Manual) Baso # (Auto) Lymphocytes % (Manual) Monocytes % (Manual) Eosinophils % (Manual) Basophils % (Manual) Seg Neutrophils # Seg Neutrophils # Man Lymphocytes # (Manual) Monocytes # (Manual) Eosinophils # (Manual) Nucleated RBC % Basophils # (Manual) PT INR APTT Heparin Anti-Xa Level ABG pH POC ABG pO2 ABG pO2 ABG HCO3 ABG O2 Saturation ABG Base Excess POC ABG pCO2 ABG Hemoglobin ABG Oxyhemoglobin ABG Glucose Oxyhemoglobin Sodium Potassium Chloride Carbon Dioxide BUN Creatinine Glucose POC Glucose 172 H 122 H 162 H Lactic Acid Calcium Phosphorus Magnesium AST ALT Lactate Dehydrogenase CK-MB (CK-2) C-Reactive Protein NT-Pro-B Natriuret Pep Total Protein Albumin Arterial Blood Glucose Urine WBC (Auto) 12/09/19 12/09/19 12/09/19 04:03 04:03 05:53 WBC RBC Hgb 9.1 L Hct 28.9 L MCHC RDW MCV MCH Lymph % (Auto) [place] % (Auto) [place] # Eos # Lymph # (Auto) [place] # (Auto) Eos # (Auto) Seg Neutrophils % Seg Neuts % (Manual) Baso # (Auto) Lymphocytes % (Manual) Monocytes % (Manual) Eosinophils % (Manual) Basophils % (Manual) Seg Neutrophils # Seg Neutrophils # Man Lymphocytes # (Manual) Monocytes # (Manual) Eosinophils # (Manual) Nucleated RBC % Basophils # (Manual) PT INR APTT Heparin Anti-Xa Level 0.15 L ABG pH POC ABG pO2 ABG pO2 ABG HCO3 ABG O2 Saturation ABG Base Excess POC ABG pCO2 ABG Hemoglobin ABG Oxyhemoglobin ABG Glucose Oxyhemoglobin Sodium Potassium Chloride Carbon Dioxide BUN Creatinine Glucose POC Glucose 124 H Lactic Acid Calcium Phosphorus Magnesium AST ALT Lactate Dehydrogenase CK-MB (CK-2) C-Reactive Protein NT-Pro-B Natriuret Pep Total Protein Albumin Arterial Blood Glucose Urine WBC (Auto) 12/09/19 12/09/19 12/10/19 09:43 12:41 00:13 WBC RBC Hgb Hct MCHC RDW MCV MCH Lymph % (Auto) [place] % (Auto) [place] # Eos # Lymph # (Auto) [place] # (Auto) Eos # (Auto) Seg Neutrophils % Seg Neuts % (Manual) Baso # (Auto) Lymphocytes % (Manual) Monocytes % (Manual) Eosinophils % (Manual) Basophils % (Manual) Seg Neutrophils # Seg Neutrophils # Man Lymphocytes # (Manual) Monocytes # (Manual) Eosinophils # (Manual) Nucleated RBC % Basophils # (Manual) PT INR APTT Heparin Anti-Xa Level ABG pH POC ABG pO2 ABG pO2 ABG HCO3 ABG O2 Saturation ABG Base Excess POC ABG pCO2 ABG Hemoglobin ABG Oxyhemoglobin ABG Glucose Oxyhemoglobin Sodium Potassium Chloride Carbon Dioxide BUN 25 H Creatinine 0.6 L Glucose 131 H POC Glucose 109 H 120 H Lactic Acid Calcium Phosphorus Magnesium AST ALT Lactate Dehydrogenase CK-MB (CK-2) C-Reactive Protein NT-Pro-B Natriuret Pep Total Protein Albumin Arterial Blood Glucose Urine WBC (Auto) 12/10/19 12/10/19 12/10/19 04:14 04:14 12:00 WBC 13.3 H RBC 3.34 L Hgb 9.6 L Hct 30.4 L MCHC RDW 15.4 H MCV MCH Lymph % (Auto) [place] % (Auto) [place] # Eos # Lymph # (Auto) [place] # (Auto) Eos # (Auto) Seg Neutrophils % Seg Neuts % (Manual) 75.0 H Baso # (Auto) Lymphocytes % (Manual) 13.0 L Monocytes % (Manual) 8.0 H Eosinophils % (Manual) Basophils % (Manual) 2.0 H Seg Neutrophils # Seg Neutrophils # Man 10.0 H Lymphocytes # (Manual) Monocytes # (Manual) 1.1 H Eosinophils # (Manual) Nucleated RBC % Basophils # (Manual) 0.3 H PT INR APTT Heparin Anti-Xa Level ABG pH POC ABG pO2 ABG pO2 ABG HCO3 ABG O2 Saturation ABG Base Excess POC ABG pCO2 ABG Hemoglobin ABG Oxyhemoglobin ABG Glucose Oxyhemoglobin Sodium 147 H Potassium Chloride 108.3 H Carbon Dioxide BUN 21 H Creatinine 0.6 L Glucose 104 H POC Glucose 133 H Lactic Acid Calcium Phosphorus Magnesium AST ALT Lactate Dehydrogenase CK-MB (CK-2) C-Reactive Protein NT-Pro-B Natriuret Pep Total Protein Albumin Arterial Blood Glucose Urine WBC (Auto) 12/10/19 12/10/19 12/11/19 18:44 21:20 00:08 WBC 14.9 H RBC 3.36 L Hgb 9.6 L Hct 30.5 L MCHC RDW 15.4 H MCV MCH Lymph % (Auto) [place] % (Auto) [place] # Eos # Lymph # (Auto) [place] # (Auto) Eos # (Auto) Seg Neutrophils % Seg Neuts % (Manual) Baso # (Auto) Lymphocytes % (Manual) Monocytes % (Manual) Eosinophils % (Manual) Basophils % (Manual) Seg Neutrophils # Seg Neutrophils # Man Lymphocytes # (Manual) Monocytes # (Manual) Eosinophils # (Manual) Nucleated RBC % Basophils # (Manual) PT INR APTT Heparin Anti-Xa Level ABG pH POC ABG pO2 ABG pO2 ABG HCO3 ABG O2 Saturation ABG Base Excess POC ABG pCO2 ABG Hemoglobin ABG Oxyhemoglobin ABG Glucose Oxyhemoglobin Sodium Potassium Chloride Carbon Dioxide BUN Creatinine Glucose POC Glucose 119 H 134 H Lactic Acid Calcium Phosphorus Magnesium AST ALT Lactate Dehydrogenase CK-MB (CK-2) C-Reactive Protein NT-Pro-B Natriuret Pep Total Protein Albumin Arterial Blood Glucose Urine WBC (Auto) 12/11/19 12/11/19 12/11/19 03:54 07:28 08:36 WBC 11.9 H RBC 3.25 L Hgb 9.6 L Hct 29.2 L MCHC RDW 15.7 H MCV MCH Lymph % (Auto) [place] % (Auto) [place] # Eos # Lymph # (Auto) [place] # (Auto) Eos # (Auto) Seg Neutrophils % Seg Neuts % (Manual) Baso # (Auto) Lymphocytes % (Manual) Monocytes % (Manual) Eosinophils % (Manual) Basophils % (Manual) Seg Neutrophils # Seg Neutrophils # Man Lymphocytes # (Manual) Monocytes # (Manual) Eosinophils # (Manual) Nucleated RBC % Basophils # (Manual) PT INR APTT Heparin Anti-Xa Level 0.10 L 0.16 L ABG pH POC ABG pO2 ABG pO2 ABG HCO3 ABG O2 Saturation ABG Base Excess POC ABG pCO2 ABG Hemoglobin ABG Oxyhemoglobin ABG Glucose Oxyhemoglobin Sodium Potassium Chloride Carbon Dioxide BUN Creatinine Glucose POC Glucose Lactic Acid Calcium Phosphorus Magnesium AST ALT Lactate Dehydrogenase CK-MB (CK-2) C-Reactive Protein NT-Pro-B Natriuret Pep Total Protein Albumin Arterial Blood Glucose Urine WBC (Auto) 12/11/19 12/11/19 12/11/19 08:36 11:45 17:15 WBC RBC Hgb Hct MCHC RDW MCV MCH Lymph % (Auto) [place] % (Auto) [place] # Eos # Lymph # (Auto) [place] # (Auto) Eos # (Auto) Seg Neutrophils % Seg Neuts % (Manual) Baso # (Auto) Lymphocytes % (Manual) Monocytes % (Manual) Eosinophils % (Manual) Basophils % (Manual) Seg Neutrophils # Seg Neutrophils # Man Lymphocytes # (Manual) Monocytes # (Manual) Eosinophils # (Manual) Nucleated RBC % Basophils # (Manual) PT INR APTT Heparin Anti-Xa Level ABG pH POC ABG pO2 ABG pO2 ABG HCO3 ABG O2 Saturation ABG Base Excess POC ABG pCO2 ABG Hemoglobin ABG Oxyhemoglobin ABG Glucose Oxyhemoglobin Sodium Potassium Chloride Carbon Dioxide BUN Creatinine 0.5 L Glucose 128 H POC Glucose 136 H 109 H Lactic Acid Calcium Phosphorus Magnesium AST ALT Lactate Dehydrogenase CK-MB (CK-2) C-Reactive Protein NT-Pro-B Natriuret Pep Total Protein Albumin Arterial Blood Glucose Urine WBC (Auto) 12/12/19 12/12/19 12/12/19 00:03 05:53 05:53 WBC RBC Hgb 8.8 L Hct 27.6 L MCHC RDW MCV MCH Lymph % (Auto) [place] % (Auto) [place] # Eos # Lymph # (Auto) [place] # (Auto) Eos # (Auto) Seg Neutrophils % Seg Neuts % (Manual) Baso # (Auto) Lymphocytes % (Manual) Monocytes % (Manual) Eosinophils % (Manual) Basophils % (Manual) Seg Neutrophils # Seg Neutrophils # Man Lymphocytes # (Manual) Monocytes # (Manual) Eosinophils # (Manual) Nucleated RBC % Basophils # (Manual) PT INR APTT Heparin Anti-Xa Level 0.22 L ABG pH POC ABG pO2 ABG pO2 ABG HCO3 ABG O2 Saturation ABG Base Excess POC ABG pCO2 ABG Hemoglobin ABG Oxyhemoglobin ABG Glucose Oxyhemoglobin Sodium Potassium Chloride Carbon Dioxide BUN Creatinine Glucose POC Glucose 116 H Lactic Acid Calcium Phosphorus Magnesium AST ALT Lactate Dehydrogenase CK-MB (CK-2) C-Reactive Protein NT-Pro-B Natriuret Pep Total Protein Albumin Arterial Blood Glucose Urine WBC (Auto) 12/12/19 12/12/19 12/12/19 09:38 12:18 17:44 WBC RBC Hgb Hct MCHC RDW MCV MCH Lymph % (Auto) [place] % (Auto) [place] # Eos # Lymph # (Auto) [place] # (Auto) Eos # (Auto) Seg Neutrophils % Seg Neuts % (Manual) Baso # (Auto) Lymphocytes % (Manual) Monocytes % (Manual) Eosinophils % (Manual) Basophils % (Manual) Seg Neutrophils # Seg Neutrophils # Man Lymphocytes # (Manual) Monocytes # (Manual) Eosinophils # (Manual) Nucleated RBC % Basophils # (Manual) PT INR APTT Heparin Anti-Xa Level ABG pH POC ABG pO2 ABG pO2 ABG HCO3 ABG O2 Saturation ABG Base Excess POC ABG pCO2 ABG Hemoglobin ABG Oxyhemoglobin ABG Glucose Oxyhemoglobin Sodium Potassium Chloride Carbon Dioxide BUN Creatinine Glucose POC Glucose 115 H 146 H 146 H Lactic Acid Calcium Phosphorus Magnesium AST ALT Lactate Dehydrogenase CK-MB (CK-2) C-Reactive Protein NT-Pro-B Natriuret Pep Total Protein Albumin Arterial Blood Glucose Urine WBC (Auto) 12/12/19 12/13/19 12/13/19 23:33 05:32 05:32 WBC 13.1 H RBC 3.27 L Hgb 9.5 L Hct 29.3 L MCHC RDW 15.6 H MCV MCH Lymph % (Auto) [place] % (Auto) [place] # Eos # Lymph # (Auto) [place] # (Auto) Eos # (Auto) Seg Neutrophils % Seg Neuts % (Manual) 74.0 H Baso # (Auto) Lymphocytes % (Manual) 8.0 L Monocytes % (Manual) 9.0 H Eosinophils % (Manual) 5.0 H Basophils % (Manual) Seg Neutrophils # Seg Neutrophils # Man 9.7 H Lymphocytes # (Manual) 1.0 L Monocytes # (Manual) 1.2 H Eosinophils # (Manual) 0.7 H Nucleated RBC % Basophils # (Manual) PT INR APTT Heparin Anti-Xa Level 0.20 L ABG pH POC ABG pO2 ABG pO2 ABG HCO3 ABG O2 Saturation ABG Base Excess POC ABG pCO2 ABG Hemoglobin ABG Oxyhemoglobin ABG Glucose Oxyhemoglobin Sodium Potassium Chloride Carbon Dioxide BUN Creatinine Glucose POC Glucose 126 H Lactic Acid Calcium Phosphorus Magnesium AST ALT Lactate Dehydrogenase CK-MB (CK-2) C-Reactive Protein NT-Pro-B Natriuret Pep Total Protein Albumin Arterial Blood Glucose Urine WBC (Auto) 12/13/19 12/13/19 12/13/19 05:32 05:46 11:57 WBC RBC Hgb Hct MCHC RDW MCV MCH Lymph % (Auto) [place] % (Auto) [place] # Eos # Lymph # (Auto) [place] # (Auto) Eos # (Auto) Seg Neutrophils % Seg Neuts % (Manual) Baso # (Auto) Lymphocytes % (Manual) Monocytes % (Manual) Eosinophils % (Manual) Basophils % (Manual) Seg Neutrophils # Seg Neutrophils # Man Lymphocytes # (Manual) Monocytes # (Manual) Eosinophils # (Manual) Nucleated RBC % Basophils # (Manual) PT INR APTT Heparin Anti-Xa Level ABG pH POC ABG pO2 ABG pO2 ABG HCO3 ABG O2 Saturation ABG Base Excess POC ABG pCO2 ABG Hemoglobin ABG Oxyhemoglobin ABG Glucose Oxyhemoglobin Sodium Potassium Chloride Carbon Dioxide 31 H BUN Creatinine 0.6 L Glucose 114 H POC Glucose 118 H 133 H Lactic Acid Calcium Phosphorus Magnesium AST ALT Lactate Dehydrogenase CK-MB (CK-2) C-Reactive Protein NT-Pro-B Natriuret Pep Total Protein Albumin Arterial Blood Glucose Urine WBC (Auto) 12/13/19 12/13/19 12/14/19 17:44 23:46 05:32 WBC RBC Hgb Hct MCHC RDW MCV MCH Lymph % (Auto) [place] % (Auto) [place] # Eos # Lymph # (Auto) [place] # (Auto) Eos # (Auto) Seg Neutrophils % Seg Neuts % (Manual) Baso # (Auto) Lymphocytes % (Manual) Monocytes % (Manual) Eosinophils % (Manual) Basophils % (Manual) Seg Neutrophils # Seg Neutrophils # Man Lymphocytes # (Manual) Monocytes # (Manual) Eosinophils # (Manual) Nucleated RBC % Basophils # (Manual) PT INR APTT Heparin Anti-Xa Level ABG pH POC ABG pO2 ABG pO2 ABG HCO3 ABG O2 Saturation ABG Base Excess POC ABG pCO2 ABG Hemoglobin ABG Oxyhemoglobin ABG Glucose Oxyhemoglobin Sodium Potassium Chloride Carbon Dioxide BUN Creatinine Glucose POC Glucose 161 H 126 H 139 H Lactic Acid Calcium Phosphorus Magnesium AST ALT Lactate Dehydrogenase CK-MB (CK-2) C-Reactive Protein NT-Pro-B Natriuret Pep Total Protein Albumin Arterial Blood Glucose Urine WBC (Auto) 12/14/19 12/14/19 12/14/19 06:03 06:03 09:37 WBC RBC Hgb 9.6 L Hct 30.4 L MCHC RDW MCV MCH Lymph % (Auto) [place] % (Auto) [place] # Eos # Lymph # (Auto) [place] # (Auto) Eos # (Auto) Seg Neutrophils % Seg Neuts % (Manual) Baso # (Auto) Lymphocytes % (Manual) Monocytes % (Manual) Eosinophils % (Manual) Basophils % (Manual) Seg Neutrophils # Seg Neutrophils # Man Lymphocytes # (Manual) Monocytes # (Manual) Eosinophils # (Manual) Nucleated RBC % Basophils # (Manual) PT INR APTT Heparin Anti-Xa Level 0.24 L ABG pH POC ABG pO2 ABG pO2 ABG HCO3 ABG O2 Saturation ABG Base Excess POC ABG pCO2 ABG Hemoglobin ABG Oxyhemoglobin ABG Glucose Oxyhemoglobin Sodium Potassium Chloride Carbon Dioxide BUN Creatinine 0.6 L Glucose 162 H POC Glucose Lactic Acid Calcium Phosphorus Magnesium AST 71 H ALT 118 H Lactate Dehydrogenase CK-MB (CK-2) C-Reactive Protein NT-Pro-B Natriuret Pep Total Protein 6.2 L Albumin 2.3 L Arterial Blood Glucose Urine WBC (Auto) 12/14/19 12/14/19 12/15/19 12:06 18:18 00:19 WBC RBC Hgb Hct MCHC RDW MCV MCH Lymph % (Auto) Rincon % (Auto) Rincon # Eos # Lymph # (Auto) [place] # (Auto) Eos # (Auto) Seg Neutrophils % Seg Neuts % (Manual) Baso # (Auto) Lymphocytes % (Manual) Monocytes % (Manual) Eosinophils % (Manual) Basophils % (Manual) Seg Neutrophils # Seg Neutrophils # Man Lymphocytes # (Manual) Monocytes # (Manual) Eosinophils # (Manual) Nucleated RBC % Basophils # (Manual) PT INR APTT Heparin Anti-Xa Level ABG pH POC ABG pO2 ABG pO2 ABG HCO3 ABG O2 Saturation ABG Base Excess POC ABG pCO2 ABG Hemoglobin ABG Oxyhemoglobin ABG Glucose Oxyhemoglobin Sodium Potassium Chloride Carbon Dioxide BUN Creatinine Glucose POC Glucose 147 H 166 H 123 H Lactic Acid Calcium Phosphorus Magnesium AST ALT Lactate Dehydrogenase CK-MB (CK-2) C-Reactive Protein NT-Pro-B Natriuret Pep Total Protein Albumin Arterial Blood Glucose Urine WBC (Auto) 12/15/19 12/15/19 12/15/19 05:28 05:29 05:29 WBC 14.9 H RBC 3.19 L Hgb 9.1 L Hct 28.7 L MCHC RDW 16.0 H MCV MCH Lymph % (Auto) [place] % (Auto) R[place]con # Eos # Lymph # (Auto) [place] # (Auto) Eos # (Auto) Seg Neutrophils % Seg Neuts % (Manual) Baso # (Auto) Lymphocytes % (Manual) Monocytes % (Manual) Eosinophils % (Manual) Basophils % (Manual) Seg Neutrophils # Seg Neutrophils # Man Lymphocytes # (Manual) Monocytes # (Manual) Eosinophils # (Manual) Nucleated RBC % Basophils # (Manual) PT INR APTT Heparin Anti-Xa Level 0.19 L ABG pH POC ABG pO2 ABG pO2 ABG HCO3 ABG O2 Saturation ABG Base Excess POC ABG pCO2 ABG Hemoglobin ABG Oxyhemoglobin ABG Glucose Oxyhemoglobin Sodium Potassium Chloride Carbon Dioxide BUN Creatinine 0.6 L Glucose 110 H POC Glucose Lactic Acid Calcium Phosphorus Magnesium AST ALT Lactate Dehydrogenase CK-MB (CK-2) C-Reactive Protein NT-Pro-B Natriuret Pep Total Protein Albumin Arterial Blood Glucose Urine WBC (Auto) 12/15/19 12/15/19 12/15/19 05:53 11:50 17:26 WBC RBC Hgb Hct MCHC RDW MCV MCH Lymph % (Auto) [place] % (Auto) [place] # Eos # Lymph # (Auto) [place] # (Auto) Eos # (Auto) Seg Neutrophils % Seg Neuts % (Manual) Baso # (Auto) Lymphocytes % (Manual) Monocytes % (Manual) Eosinophils % (Manual) Basophils % (Manual) Seg Neutrophils # Seg Neutrophils # Man Lymphocytes # (Manual) Monocytes # (Manual) Eosinophils # (Manual) Nucleated RBC % Basophils # (Manual) PT INR APTT Heparin Anti-Xa Level ABG pH POC ABG pO2 ABG pO2 ABG HCO3 ABG O2 Saturation ABG Base Excess POC ABG pCO2 ABG Hemoglobin ABG Oxyhemoglobin ABG Glucose Oxyhemoglobin Sodium Potassium Chloride Carbon Dioxide BUN Creatinine Glucose POC Glucose 119 H 132 H 128 H Lactic Acid Calcium Phosphorus Magnesium AST ALT Lactate Dehydrogenase CK-MB (CK-2) C-Reactive Protein NT-Pro-B Natriuret Pep Total Protein Albumin Arterial Blood Glucose Urine WBC (Auto) 12/15/19 12/16/19 12/16/19 23:11 05:30 05:46 WBC RBC Hgb 8.8 L Hct 27.9 L MCHC RDW MCV MCH Lymph % (Auto) [place] % (Auto) [place] # Eos # Lymph # (Auto) [place] # (Auto) Eos # (Auto) Seg Neutrophils % Seg Neuts % (Manual) Baso # (Auto) Lymphocytes % (Manual) Monocytes % (Manual) Eosinophils % (Manual) Basophils % (Manual) Seg Neutrophils # Seg Neutrophils # Man Lymphocytes # (Manual) Monocytes # (Manual) Eosinophils # (Manual) Nucleated RBC % Basophils # (Manual) PT INR APTT Heparin Anti-Xa Level ABG pH POC ABG pO2 ABG pO2 ABG HCO3 ABG O2 Saturation ABG Base Excess POC ABG pCO2 ABG Hemoglobin ABG Oxyhemoglobin ABG Glucose Oxyhemoglobin Sodium Potassium Chloride Carbon Dioxide BUN Creatinine Glucose POC Glucose 150 H 134 H Lactic Acid Calcium Phosphorus Magnesium AST ALT Lactate Dehydrogenase CK-MB (CK-2) C-Reactive Protein NT-Pro-B Natriuret Pep Total Protein Albumin Arterial Blood Glucose Urine WBC (Auto) 12/16/19 12/16/19 12/16/19 05:46 05:46 11:44 WBC RBC Hgb Hct MCHC RDW MCV MCH Lymph % (Auto) [place] % (Auto) [place] # Eos # Lymph # (Auto) [place] # (Auto) Eos # (Auto) Seg Neutrophils % Seg Neuts % (Manual) Baso # (Auto) Lymphocytes % (Manual) Monocytes % (Manual) Eosinophils % (Manual) Basophils % (Manual) Seg Neutrophils # Seg Neutrophils # Man Lymphocytes # (Manual) Monocytes # (Manual) Eosinophils # (Manual) Nucleated RBC % Basophils # (Manual) PT INR APTT Heparin Anti-Xa Level 0.20 L ABG pH POC ABG pO2 ABG pO2 ABG HCO3 ABG O2 Saturation ABG Base Excess POC ABG pCO2 ABG Hemoglobin ABG Oxyhemoglobin ABG Glucose Oxyhemoglobin Sodium Potassium Chloride Carbon Dioxide 31 H BUN Creatinine 0.5 L Glucose 147 H POC Glucose 164 H Lactic Acid Calcium Phosphorus Magnesium AST ALT Lactate Dehydrogenase CK-MB (CK-2) C-Reactive Protein NT-Pro-B Natriuret Pep Total Protein Albumin Arterial Blood Glucose Urine WBC (Auto) 12/16/19 12/16/19 12/17/19 17:17 23:49 05:30 WBC 13.9 H RBC 3.27 L Hgb 9.4 L Hct 29.2 L MCHC RDW 16.0 H MCV MCH Lymph % (Auto) [place] % (Auto) 8.8 H [place] # Eos # Lymph # (Auto) [place] # (Auto) 1.2 H Eos # (Auto) 0.5 H Seg Neutrophils % 70.5 H Seg Neuts % (Manual) Baso # (Auto) 0.2 H Lymphocytes % (Manual) Monocytes % (Manual) Eosinophils % (Manual) Basophils % (Manual) Seg Neutrophils # 9.8 H Seg Neutrophils # Man Lymphocytes # (Manual) Monocytes # (Manual) Eosinophils # (Manual) Nucleated RBC % Basophils # (Manual) PT INR APTT Heparin Anti-Xa Level ABG pH POC ABG pO2 ABG pO2 ABG HCO3 ABG O2 Saturation ABG Base Excess POC ABG pCO2 ABG Hemoglobin ABG Oxyhemoglobin ABG Glucose Oxyhemoglobin Sodium Potassium Chloride Carbon Dioxide BUN Creatinine Glucose POC Glucose 162 H 144 H Lactic Acid Calcium Phosphorus Magnesium AST ALT Lactate Dehydrogenase CK-MB (CK-2) C-Reactive Protein NT-Pro-B Natriuret Pep Total Protein Albumin Arterial Blood Glucose Urine WBC (Auto) 12/17/19 12/17/1912/16/20 05:30 06:06 11:50 WBC RBC Hgb Hct MCHC RDW MCV MCH Lymph % (Auto) [place] % (Auto) [place] # Eos # Lymph # (Auto) [place] # (Auto) Eos # (Auto) Seg Neutrophils % Seg Neuts % (Manual) Baso # (Auto) Lymphocytes % (Manual) Monocytes % (Manual) Eosinophils % (Manual) Basophils % (Manual) Seg Neutrophils # Seg Neutrophils # Man Lymphocytes # (Manual) Monocytes # (Manual) Eosinophils # (Manual) Nucleated RBC % Basophils # (Manual) PT INR APTT Heparin Anti-Xa Level ABG pH POC ABG pO2 ABG pO2 ABG HCO3 ABG O2 Saturation ABG Base Excess POC ABG pCO2 ABG Hemoglobin ABG Oxyhemoglobin ABG Glucose Oxyhemoglobin Sodium Potassium Chloride 97.4 L Carbon Dioxide 32 H BUN Creatinine 0.5 L Glucose 135 H POC Glucose 151 H 140 H Lactic Acid Calcium Phosphorus Magnesium AST ALT Lactate Dehydrogenase CK-MB (CK-2) C-Reactive Protein NT-Pro-B Natriuret Pep Total Protein Albumin Arterial Blood Glucose Urine WBC (Auto) 12/17/19 12/17/19 12/18/19 17:50 23:46 05:17 WBC RBC Hgb 8.8 L Hct 28.0 L MCHC RDW MCV MCH Lymph % (Auto) [place] % (Auto) [place] # Eos # Lymph # (Auto) [place] # (Auto) Eos # (Auto) Seg Neutrophils % Seg Neuts % (Manual) Baso # (Auto) Lymphocytes % (Manual) Monocytes % (Manual) Eosinophils % (Manual) Basophils % (Manual) Seg Neutrophils # Seg Neutrophils # Man Lymphocytes # (Manual) Monocytes # (Manual) Eosinophils # (Manual) Nucleated RBC % Basophils # (Manual) PT INR APTT Heparin Anti-Xa Level ABG pH POC ABG pO2 ABG pO2 ABG HCO3 ABG O2 Saturation ABG Base Excess POC ABG pCO2 ABG Hemoglobin ABG Oxyhemoglobin ABG Glucose Oxyhemoglobin Sodium Potassium Chloride Carbon Dioxide BUN Creatinine Glucose POC Glucose 158 H 150 H Lactic Acid Calcium Phosphorus Magnesium AST ALT Lactate Dehydrogenase CK-MB (CK-2) C-Reactive Protein NT-Pro-B Natriuret Pep Total Protein Albumin Arterial Blood Glucose Urine WBC (Auto) 12/18/19 12/18/19 12/18/19 05:17 05:49 11:12 WBC RBC Hgb Hct MCHC RDW MCV MCH Lymph % (Auto) [place] % (Auto) [place] # Eos # Lymph # (Auto) [place] # (Auto) Eos # (Auto) Seg Neutrophils % Seg Neuts % (Manual) Baso # (Auto) Lymphocytes % (Manual) Monocytes % (Manual) Eosinophils % (Manual) Basophils % (Manual) Seg Neutrophils # Seg Neutrophils # Man Lymphocytes # (Manual) Monocytes # (Manual) Eosinophils # (Manual) Nucleated RBC % Basophils # (Manual) PT INR APTT Heparin Anti-Xa Level 0.16 L ABG pH POC ABG pO2 ABG pO2 ABG HCO3 ABG O2 Saturation ABG Base Excess POC ABG pCO2 ABG Hemoglobin ABG Oxyhemoglobin ABG Glucose Oxyhemoglobin Sodium Potassium Chloride Carbon Dioxide BUN Creatinine Glucose POC Glucose 127 H 191 H Lactic Acid Calcium Phosphorus Magnesium AST ALT Lactate Dehydrogenase CK-MB (CK-2) C-Reactive Protein NT-Pro-B Natriuret Pep Total Protein Albumin Arterial Blood Glucose Urine WBC (Auto) 12/18/19 12/18/19 12/19/19 17:03 20:16 00:08 WBC RBC Hgb Hct MCHC RDW MCV MCH Lymph % (Auto) [place] % (Auto) [place] # Eos # Lymph # (Auto) [place] # (Auto) Eos # (Auto) Seg Neutrophils % Seg Neuts % (Manual) Baso # (Auto) Lymphocytes % (Manual) Monocytes % (Manual) Eosinophils % (Manual) Basophils % (Manual) Seg Neutrophils # Seg Neutrophils # Man Lymphocytes # (Manual) Monocytes # (Manual) Eosinophils # (Manual) Nucleated RBC % Basophils # (Manual) PT INR APTT Heparin Anti-Xa Level ABG pH POC ABG pO2 ABG pO2 ABG HCO3 ABG O2 Saturation ABG Base Excess POC ABG pCO2 ABG Hemoglobin ABG Oxyhemoglobin ABG Glucose Oxyhemoglobin Sodium Potassium Chloride Carbon Dioxide BUN Creatinine Glucose POC Glucose 133 H 128 H 129 H Lactic Acid Calcium Phosphorus Magnesium AST ALT Lactate Dehydrogenase CK-MB (CK-2) C-Reactive Protein NT-Pro-B Natriuret Pep Total Protein Albumin Arterial Blood Glucose Urine WBC (Auto) 12/19/19 12/19/19 12/19/19 04:45 04:45 05:35 WBC RBC Hgb Hct MCHC RDW MCV MCH Lymph % (Auto) [place] % (Auto) [place] # Eos # Lymph # (Auto) [place] # (Auto) Eos # (Auto) Seg Neutrophils % Seg Neuts % (Manual) Baso # (Auto) Lymphocytes % (Manual) Monocytes % (Manual) Eosinophils % (Manual) Basophils % (Manual) Seg Neutrophils # Seg Neutrophils # Man Lymphocytes # (Manual) Monocytes # (Manual) Eosinophils # (Manual) Nucleated RBC % Basophils # (Manual) PT INR APTT Heparin Anti-Xa Level 0.17 L ABG pH POC ABG pO2 ABG pO2 ABG HCO3 ABG O2 Saturation ABG Base Excess POC ABG pCO2 ABG Hemoglobin ABG Oxyhemoglobin ABG Glucose Oxyhemoglobin Sodium Potassium Chloride Carbon Dioxide BUN Creatinine Glucose POC Glucose 120 H Lactic Acid Calcium Phosphorus Magnesium AST ALT Lactate Dehydrogenase 228 H CK-MB (CK-2) C-Reactive Protein NT-Pro-B Natriuret Pep Total Protein Albumin Arterial Blood Glucose Urine WBC (Auto) 12/19/19 12/19/19 12/19/19 09:20 11:32 11:32 WBC 14.6 H RBC 3.08 L Hgb 9.0 L Hct 26.8 L MCHC RDW 15.9 H MCV MCH Lymph % (Auto) [place] % (Auto) [place] # Eos # Lymph # (Auto) [place] # (Auto) Eos # (Auto) Seg Neutrophils % Seg Neuts % (Manual) 82.0 H Baso # (Auto) Lymphocytes % (Manual) 10.0 L Monocytes % (Manual) Eosinophils % (Manual) Basophils % (Manual) Seg Neutrophils # Seg Neutrophils # Man 12.0 H Lymphocytes # (Manual) Monocytes # (Manual) 0.9 H Eosinophils # (Manual) Nucleated RBC % 1.0 H Basophils # (Manual) PT INR APTT Heparin Anti-Xa Level ABG pH 7.451 H POC ABG pO2 ABG pO2 62.6 L ABG HCO3 33.2 H ABG O2 Saturation 93.8 L ABG Base Excess 8.3 H POC ABG pCO2 ABG Hemoglobin 8.3 L ABG Oxyhemoglobin ABG Glucose Oxyhemoglobin 91.9 L Sodium Potassium Chloride 95.0 L Carbon Dioxide 33 H BUN 22 H Creatinine 0.6 L Glucose 150 H POC Glucose Lactic Acid Calcium Phosphorus Magnesium AST ALT Lactate Dehydrogenase CK-MB (CK-2) C-Reactive Protein NT-Pro-B Natriuret Pep Total Protein 6.2 L Albumin 2.4 L Arterial Blood Glucose Urine WBC (Auto) 12/19/19 12/19/19 12/20/19 11:56 18:17 00:09 WBC RBC Hgb Hct MCHC RDW MCV MCH Lymph % (Auto) [place] % (Auto) [place] # Eos # Lymph # (Auto) [place] # (Auto) Eos # (Auto) Seg Neutrophils % Seg Neuts % (Manual) Baso # (Auto) Lymphocytes % (Manual) Monocytes % (Manual) Eosinophils % (Manual) Basophils % (Manual) Seg Neutrophils # Seg Neutrophils # Man Lymphocytes # (Manual) Monocytes # (Manual) Eosinophils # (Manual) Nucleated RBC % Basophils # (Manual) PT INR APTT Heparin Anti-Xa Level ABG pH POC ABG pO2 ABG pO2 ABG HCO3 ABG O2 Saturation ABG Base Excess POC ABG pCO2 ABG Hemoglobin ABG Oxyhemoglobin ABG Glucose Oxyhemoglobin Sodium Potassium Chloride Carbon Dioxide BUN Creatinine Glucose POC Glucose 156 H 156 H 155 H Lactic Acid Calcium Phosphorus Magnesium AST ALT Lactate Dehydrogenase CK-MB (CK-2) C-Reactive Protein NT-Pro-B Natriuret Pep Total Protein Albumin Arterial Blood Glucose Urine WBC (Auto) 12/20/19 12/20/19 12/20/19 05:26 06:02 18:17 WBC RBC Hgb Hct MCHC RDW MCV MCH Lymph % (Auto) [place] % (Auto) [place] # Eos # Lymph # (Auto) [place] # (Auto) Eos # (Auto) Seg Neutrophils % Seg Neuts % (Manual) Baso # (Auto) Lymphocytes % (Manual) Monocytes % (Manual) Eosinophils % (Manual) Basophils % (Manual) Seg Neutrophils # Seg Neutrophils # Man Lymphocytes # (Manual) Monocytes # (Manual) Eosinophils # (Manual) Nucleated RBC % Basophils # (Manual) PT INR APTT Heparin Anti-Xa Level 0.19 L ABG pH POC ABG pO2 ABG pO2 ABG HCO3 ABG O2 Saturation ABG Base Excess POC ABG pCO2 ABG Hemoglobin ABG Oxyhemoglobin ABG Glucose Oxyhemoglobin Sodium Potassium Chloride Carbon Dioxide BUN Creatinine Glucose POC Glucose 137 H 128 H Lactic Acid Calcium Phosphorus Magnesium AST ALT Lactate Dehydrogenase CK-MB (CK-2) C-Reactive Protein NT-Pro-B Natriuret Pep Total Protein Albumin Arterial Blood Glucose Urine WBC (Auto) 12/20/19 12/21/19 12/21/19 23:34 05:31 05:31 WBC 12.7 H RBC 3.09 L Hgb 8.9 L Hct 27.4 L MCHC RDW 15.8 H MCV MCH Lymph % (Auto) 12.1 L [place] % (Auto) 7.8 H [place] # Eos # Lymph # (Auto) [place] # (Auto) 1.0 H Eos # (Auto) Seg Neutrophils % 77.1 H Seg Neuts % (Manual) Baso # (Auto) Lymphocytes % (Manual) Monocytes % (Manual) Eosinophils % (Manual) Basophils % (Manual) Seg Neutrophils # 9.8 H Seg Neutrophils # Man Lymphocytes # (Manual) Monocytes # (Manual) Eosinophils # (Manual) Nucleated RBC % Basophils # (Manual) PT INR APTT Heparin Anti-Xa Level ABG pH POC ABG pO2 ABG pO2 ABG HCO3 ABG O2 Saturation ABG Base Excess POC ABG pCO2 ABG Hemoglobin ABG Oxyhemoglobin ABG Glucose Oxyhemoglobin Sodium Potassium Chloride 96.9 L Carbon Dioxide 37 H BUN 27 H Creatinine 0.7 L Glucose 140 H POC Glucose 145 H Lactic Acid Calcium Phosphorus Magnesium AST ALT Lactate Dehydrogenase CK-MB (CK-2) C-Reactive Protein NT-Pro-B Natriuret Pep Total Protein Albumin Arterial Blood Glucose Urine WBC (Auto) 12/21/19 12/21/19 12/21/19 05:38 10:13 11:51 WBC RBC Hgb Hct MCHC RDW MCV MCH Lymph % (Auto) [place] % (Auto) [place] # Eos # Lymph # (Auto) [place] # (Auto) Eos # (Auto) Seg Neutrophils % Seg Neuts % (Manual) Baso # (Auto) Lymphocytes % (Manual) Monocytes % (Manual) Eosinophils % (Manual) Basophils % (Manual) Seg Neutrophils # Seg Neutrophils # Man Lymphocytes # (Manual) Monocytes # (Manual) Eosinophils # (Manual) Nucleated RBC % Basophils # (Manual) PT INR APTT 23.9 L Heparin Anti-Xa Level < 0.10 L ABG pH POC ABG pO2 ABG pO2 ABG HCO3 ABG O2 Saturation ABG Base Excess POC ABG pCO2 ABG Hemoglobin ABG Oxyhemoglobin ABG Glucose Oxyhemoglobin Sodium Potassium Chloride Carbon Dioxide BUN Creatinine Glucose POC Glucose 151 H 145 H Lactic Acid Calcium Phosphorus Magnesium AST ALT Lactate Dehydrogenase CK-MB (CK-2) C-Reactive Protein NT-Pro-B Natriuret Pep Total Protein Albumin Arterial Blood Glucose Urine WBC (Auto) 12/21/19 12/22/19 12/22/19 17:16 00:01 01:33 WBC RBC Hgb Hct MCHC RDW MCV MCH Lymph % (Auto) [place] % (Auto) [place] # Eos # Lymph # (Auto) [place] # (Auto) Eos # (Auto) Seg Neutrophils % Seg Neuts % (Manual) Baso # (Auto) Lymphocytes % (Manual) Monocytes % (Manual) Eosinophils % (Manual) Basophils % (Manual) Seg Neutrophils # Seg Neutrophils # Man Lymphocytes # (Manual) Monocytes # (Manual) Eosinophils # (Manual) Nucleated RBC % Basophils # (Manual) PT INR APTT Heparin Anti-Xa Level 0.10 L ABG pH POC ABG pO2 ABG pO2 ABG HCO3 ABG O2 Saturation ABG Base Excess POC ABG pCO2 ABG Hemoglobin ABG Oxyhemoglobin ABG Glucose Oxyhemoglobin Sodium Potassium Chloride Carbon Dioxide BUN Creatinine Glucose POC Glucose 167 H 179 H Lactic Acid Calcium Phosphorus Magnesium AST ALT Lactate Dehydrogenase CK-MB (CK-2) C-Reactive Protein NT-Pro-B Natriuret Pep Total Protein Albumin Arterial Blood Glucose Urine WBC (Auto) 12/22/19 12/22/19 12/22/19 03:22 05:10 05:10 WBC 13.8 H RBC 3.20 L Hgb 8.9 L Hct 28.1 L MCHC RDW 15.9 H MCV MCH Lymph % (Auto) [place] % (Auto) [place] # Eos # Lymph # (Auto) [place] # (Auto) Eos # (Auto) Seg Neutrophils % Seg Neuts % (Manual) Baso # (Auto) Lymphocytes % (Manual) Monocytes % (Manual) Eosinophils % (Manual) Basophils % (Manual) Seg Neutrophils # Seg Neutrophils # Man Lymphocytes # (Manual) Monocytes # (Manual) Eosinophils # (Manual) Nucleated RBC % Basophils # (Manual) PT INR APTT Heparin Anti-Xa Level ABG pH POC ABG pO2 52.3 L ABG pO2 ABG HCO3 ABG O2 Saturation ABG Base Excess POC ABG pCO2 52.9 H ABG Hemoglobin 10.7 L ABG Oxyhemoglobin 84 L ABG Glucose Oxyhemoglobin Sodium Potassium Chloride 96.6 L Carbon Dioxide BUN 25 H Creatinine 0.7 L Glucose 129 H POC Glucose Lactic Acid Calcium Phosphorus Magnesium AST ALT Lactate Dehydrogenase CK-MB (CK-2) C-Reactive Protein NT-Pro-B Natriuret Pep Total Protein Albumin Arterial Blood Glucose Urine WBC (Auto) 12/22/19 12/22/19 12/22/19 05:18 12:32 12:43 WBC RBC Hgb Hct MCHC RDW MCV MCH Lymph % (Auto) [place] % (Auto) [place] # Eos # Lymph # (Auto) [place] # (Auto) Eos # (Auto) Seg Neutrophils % Seg Neuts % (Manual) Baso # (Auto) Lymphocytes % (Manual) Monocytes % (Manual) Eosinophils % (Manual) Basophils % (Manual) Seg Neutrophils # Seg Neutrophils # Man Lymphocytes # (Manual) Monocytes # (Manual) Eosinophils # (Manual) Nucleated RBC % Basophils # (Manual) PT INR APTT Heparin Anti-Xa Level 0.18 L ABG pH POC ABG pO2 ABG pO2 ABG HCO3 ABG O2 Saturation ABG Base Excess POC ABG pCO2 ABG Hemoglobin ABG Oxyhemoglobin ABG Glucose Oxyhemoglobin Sodium Potassium Chloride Carbon Dioxide BUN Creatinine Glucose POC Glucose 131 H 208 H Lactic Acid Calcium Phosphorus Magnesium AST ALT Lactate Dehydrogenase CK-MB (CK-2) C-Reactive Protein NT-Pro-B Natriuret Pep Total Protein Albumin Arterial Blood Glucose Urine WBC (Auto) 12/22/19 12/22/19 12/23/19 17:44 23:20 03:51 WBC 15.2 H RBC 3.43 L Hgb 9.6 L Hct 30.3 L MCHC RDW 15.9 H MCV MCH Lymph % (Auto) [place] % (Auto) [place] # Eos # Lymph # (Auto) [place] # (Auto) Eos # (Auto) Seg Neutrophils % Seg Neuts % (Manual) Baso # (Auto) Lymphocytes % (Manual) Monocytes % (Manual) Eosinophils % (Manual) Basophils % (Manual) Seg Neutrophils # Seg Neutrophils # Man Lymphocytes # (Manual) Monocytes # (Manual) Eosinophils # (Manual) Nucleated RBC % Basophils # (Manual) PT INR APTT Heparin Anti-Xa Level ABG pH POC ABG pO2 ABG pO2 ABG HCO3 ABG O2 Saturation ABG Base Excess POC ABG pCO2 ABG Hemoglobin ABG Oxyhemoglobin ABG Glucose Oxyhemoglobin Sodium Potassium Chloride Carbon Dioxide BUN Creatinine Glucose POC Glucose 209 H 119 H Lactic Acid Calcium Phosphorus Magnesium AST ALT Lactate Dehydrogenase CK-MB (CK-2) C-Reactive Protein NT-Pro-B Natriuret Pep Total Protein Albumin Arterial Blood Glucose Urine WBC (Auto) 12/23/19 12/23/19 12/23/19 03:51 05:31 12:09 WBC RBC Hgb Hct MCHC RDW MCV MCH Lymph % (Auto) [place] % (Auto) [place] # Eos # Lymph # (Auto) [place] # (Auto) Eos # (Auto) Seg Neutrophils % Seg Neuts % (Manual) Baso # (Auto) Lymphocytes % (Manual) Monocytes % (Manual) Eosinophils % (Manual) Basophils % (Manual) Seg Neutrophils # Seg Neutrophils # Man Lymphocytes # (Manual) Monocytes # (Manual) Eosinophils # (Manual) Nucleated RBC % Basophils # (Manual) PT INR APTT Heparin Anti-Xa Level ABG pH POC ABG pO2 ABG pO2 ABG HCO3 ABG O2 Saturation ABG Base Excess POC ABG pCO2 ABG Hemoglobin ABG Oxyhemoglobin ABG Glucose Oxyhemoglobin Sodium Potassium Chloride 97.2 L Carbon Dioxide 31 H BUN 23 H Creatinine 0.6 L Glucose 153 H POC Glucose 149 H 144 H Lactic Acid Calcium Phosphorus Magnesium AST ALT Lactate Dehydrogenase CK-MB (CK-2) C-Reactive Protein NT-Pro-B Natriuret Pep Total Protein Albumin Arterial Blood Glucose Urine WBC (Auto) 12/23/19 12/23/19 12/23/19 15:30 17:49 23:31 WBC RBC Hgb Hct MCHC RDW MCV MCH Lymph % (Auto) [place] % (Auto) [place] # Eos # Lymph # (Auto) [place] # (Auto) Eos # (Auto) Seg Neutrophils % Seg Neuts % (Manual) Baso # (Auto) Lymphocytes % (Manual) Monocytes % (Manual) Eosinophils % (Manual) Basophils % (Manual) Seg Neutrophils # Seg Neutrophils # Man Lymphocytes # (Manual) Monocytes # (Manual) Eosinophils # (Manual) Nucleated RBC % Basophils # (Manual) PT INR APTT Heparin Anti-Xa Level 0.21 L ABG pH POC ABG pO2 ABG pO2 ABG HCO3 ABG O2 Saturation ABG Base Excess POC ABG pCO2 ABG Hemoglobin ABG Oxyhemoglobin ABG Glucose Oxyhemoglobin Sodium Potassium Chloride Carbon Dioxide BUN Creatinine Glucose POC Glucose 192 H 151 H Lactic Acid Calcium Phosphorus Magnesium AST ALT Lactate Dehydrogenase CK-MB (CK-2) C-Reactive Protein NT-Pro-B Natriuret Pep Total Protein Albumin Arterial Blood Glucose Urine WBC (Auto) 12/24/19 12/24/1920 05:34 12:13 16:50 WBC RBC Hgb Hct MCHC RDW MCV MCH Lymph % (Auto) [place] % (Auto) [place] # Eos # Lymph # (Auto) [place] # (Auto) Eos # (Auto) Seg Neutrophils % Seg Neuts % (Manual) Baso # (Auto) Lymphocytes % (Manual) Monocytes % (Manual) Eosinophils % (Manual) Basophils % (Manual) Seg Neutrophils # Seg Neutrophils # Man Lymphocytes # (Manual) Monocytes # (Manual) Eosinophils # (Manual) Nucleated RBC % Basophils # (Manual) PT INR APTT Heparin Anti-Xa Level 0.16 L ABG pH POC ABG pO2 ABG pO2 ABG HCO3 ABG O2 Saturation ABG Base Excess POC ABG pCO2 ABG Hemoglobin ABG Oxyhemoglobin ABG Glucose Oxyhemoglobin Sodium Potassium Chloride Carbon Dioxide BUN Creatinine Glucose POC Glucose 145 H 124 H Lactic Acid Calcium Phosphorus Magnesium AST ALT Lactate Dehydrogenase CK-MB (CK-2) C-Reactive Protein NT-Pro-B Natriuret Pep Total Protein Albumin Arterial Blood Glucose Urine WBC (Auto) 12/24/19 12/25/19 12/25/19 17:53 00:14 04:18 WBC 12.9 H RBC 3.30 L Hgb 9.1 L Hct 28.8 L MCHC RDW 16.4 H MCV MCH Lymph % (Auto) [place] % (Auto) 7.8 H [place] # Eos # Lymph # (Auto) [place] # (Auto) 1.0 H Eos # (Auto) Seg Neutrophils % 75.5 H Seg Neuts % (Manual) Baso # (Auto) Lymphocytes % (Manual) Monocytes % (Manual) Eosinophils % (Manual) Basophils % (Manual) Seg Neutrophils # 9.7 H Seg Neutrophils # Man Lymphocytes # (Manual) Monocytes # (Manual) Eosinophils # (Manual) Nucleated RBC % Basophils # (Manual) PT INR APTT Heparin Anti-Xa Level ABG pH POC ABG pO2 ABG pO2 ABG HCO3 ABG O2 Saturation ABG Base Excess POC ABG pCO2 ABG Hemoglobin ABG Oxyhemoglobin ABG Glucose Oxyhemoglobin Sodium Potassium Chloride Carbon Dioxide BUN Creatinine Glucose POC Glucose 164 H 148 H Lactic Acid Calcium Phosphorus Magnesium AST ALT Lactate Dehydrogenase CK-MB (CK-2) C-Reactive Protein NT-Pro-B Natriuret Pep Total Protein Albumin Arterial Blood Glucose Urine WBC (Auto) 12/25/19 12/25/19 12/25/19 04:18 05:38 11:44 WBC RBC Hgb Hct MCHC RDW MCV MCH Lymph % (Auto) [place] % (Auto) [place] # Eos # Lymph # (Auto) [place] # (Auto) Eos # (Auto) Seg Neutrophils % Seg Neuts % (Manual) Baso # (Auto) Lymphocytes % (Manual) Monocytes % (Manual) Eosinophils % (Manual) Basophils % (Manual) Seg Neutrophils # Seg Neutrophils # Man Lymphocytes # (Manual) Monocytes # (Manual) Eosinophils # (Manual) Nucleated RBC % Basophils # (Manual) PT INR APTT Heparin Anti-Xa Level ABG pH POC ABG pO2 ABG pO2 ABG HCO3 ABG O2 Saturation ABG Base Excess POC ABG pCO2 ABG Hemoglobin ABG Oxyhemoglobin ABG Glucose Oxyhemoglobin Sodium Potassium Chloride Carbon Dioxide 33 H BUN 27 H Creatinine 0.6 L Glucose 132 H POC Glucose 152 H 166 H Lactic Acid Calcium Phosphorus Magnesium AST ALT Lactate Dehydrogenase CK-MB (CK-2) C-Reactive Protein NT-Pro-B Natriuret Pep Total Protein Albumin Arterial Blood Glucose Urine WBC (Auto) 12/25/19 12/26/19 12/26/19 18:29 00:17 00:18 WBC RBC Hgb Hct MCHC RDW MCV MCH Lymph % (Auto) [place] % (Auto) [place] # Eos # Lymph # (Auto) [place] # (Auto) Eos # (Auto) Seg Neutrophils % Seg Neuts % (Manual) Baso # (Auto) Lymphocytes % (Manual) Monocytes % (Manual) Eosinophils % (Manual) Basophils % (Manual) Seg Neutrophils # Seg Neutrophils # Man Lymphocytes # (Manual) Monocytes # (Manual) Eosinophils # (Manual) Nucleated RBC % Basophils # (Manual) PT INR APTT Heparin Anti-Xa Level ABG pH POC ABG pO2 ABG pO2 ABG HCO3 ABG O2 Saturation ABG Base Excess POC ABG pCO2 ABG Hemoglobin ABG Oxyhemoglobin ABG Glucose Oxyhemoglobin Sodium Potassium Chloride 97.8 L Carbon Dioxide BUN 25 H Creatinine 0.6 L Glucose 140 H POC Glucose 194 H 151 H Lactic Acid Calcium Phosphorus Magnesium AST ALT Lactate Dehydrogenase CK-MB (CK-2) C-Reactive Protein NT-Pro-B Natriuret Pep Total Protein Albumin Arterial Blood Glucose Urine WBC (Auto) 12/26/19 12/26/19 12/26/19 05:36 11:41 17:50 WBC RBC Hgb Hct MCHC RDW MCV MCH Lymph % (Auto) Rincon % (Auto) Rincon # Eos # Lymph # (Auto) [place] # (Auto) Eos # (Auto) Seg Neutrophils % Seg Neuts % (Manual) Baso # (Auto) Lymphocytes % (Manual) Monocytes % (Manual) Eosinophils % (Manual) Basophils % (Manual) Seg Neutrophils # Seg Neutrophils # Man Lymphocytes # (Manual) Monocytes # (Manual) Eosinophils # (Manual) Nucleated RBC % Basophils # (Manual) PT INR APTT Heparin Anti-Xa Level ABG pH POC ABG pO2 ABG pO2 ABG HCO3 ABG O2 Saturation ABG Base Excess POC ABG pCO2 ABG Hemoglobin ABG Oxyhemoglobin ABG Glucose Oxyhemoglobin Sodium Potassium Chloride Carbon Dioxide BUN Creatinine Glucose POC Glucose 156 H 148 H 139 H Lactic Acid Calcium Phosphorus Magnesium AST ALT Lactate Dehydrogenase CK-MB (CK-2) C-Reactive Protein NT-Pro-B Natriuret Pep Total Protein Albumin Arterial Blood Glucose Urine WBC (Auto) 12/26/19 12/27/19 12/27/19 23:19 05:34 12:02 WBC RBC Hgb Hct MCHC RDW MCV MCH Lymph % (Auto) [place] % (Auto) Rincon # Eos # Lymph # (Auto) [place] # (Auto) Eos # (Auto) Seg Neutrophils % Seg Neuts % (Manual) Baso # (Auto) Lymphocytes % (Manual) Monocytes % (Manual) Eosinophils % (Manual) Basophils % (Manual) Seg Neutrophils # Seg Neutrophils # Man Lymphocytes # (Manual) Monocytes # (Manual) Eosinophils # (Manual) Nucleated RBC % Basophils # (Manual) PT INR APTT Heparin Anti-Xa Level ABG pH POC ABG pO2 ABG pO2 ABG HCO3 ABG O2 Saturation ABG Base Excess POC ABG pCO2 ABG Hemoglobin ABG Oxyhemoglobin ABG Glucose Oxyhemoglobin Sodium Potassium Chloride Carbon Dioxide BUN Creatinine Glucose POC Glucose 161 H 145 H 157 H Lactic Acid Calcium Phosphorus Magnesium AST ALT Lactate Dehydrogenase CK-MB (CK-2) C-Reactive Protein NT-Pro-B Natriuret Pep Total Protein Albumin Arterial Blood Glucose Urine WBC (Auto) 12/27/19 12/27/19 12/27/19 17:35 20:11 23:00 WBC RBC Hgb Hct MCHC RDW MCV MCH Lymph % (Auto) [place] % (Auto) [place] # Eos # Lymph # (Auto) [place] # (Auto) Eos # (Auto) Seg Neutrophils % Seg Neuts % (Manual) Baso # (Auto) Lymphocytes % (Manual) Monocytes % (Manual) Eosinophils % (Manual) Basophils % (Manual) Seg Neutrophils # Seg Neutrophils # Man Lymphocytes # (Manual) Monocytes # (Manual) Eosinophils # (Manual) Nucleated RBC % Basophils # (Manual) PT INR APTT Heparin Anti-Xa Level 0.19 L ABG pH POC ABG pO2 ABG pO2 ABG HCO3 ABG O2 Saturation ABG Base Excess POC ABG pCO2 ABG Hemoglobin ABG Oxyhemoglobin ABG Glucose Oxyhemoglobin Sodium Potassium Chloride Carbon Dioxide BUN Creatinine Glucose POC Glucose 158 H 155 H Lactic Acid Calcium Phosphorus Magnesium AST ALT Lactate Dehydrogenase CK-MB (CK-2) C-Reactive Protein NT-Pro-B Natriuret Pep Total Protein Albumin Arterial Blood Glucose Urine WBC (Auto) 12/27/19 12/28/19 12/28/19 23:45 02:41 02:41 WBC 13.0 H RBC 3.48 L Hgb 9.5 L Hct 30.6 L MCHC 31 L RDW 16.6 H MCV MCH 27 L Lymph % (Auto) 13.0 L [place] % (Auto) 8.0 H [place] # Eos # Lymph # (Auto) [place] # (Auto) 1.0 H Eos # (Auto) Seg Neutrophils % 76.3 H Seg Neuts % (Manual) Baso # (Auto) Lymphocytes % (Manual) Monocytes % (Manual) Eosinophils % (Manual) Basophils % (Manual) Seg Neutrophils # 9.9 H Seg Neutrophils # Man Lymphocytes # (Manual) Monocytes # (Manual) Eosinophils # (Manual) Nucleated RBC % Basophils # (Manual) PT INR APTT Heparin Anti-Xa Level ABG pH POC ABG pO2 ABG pO2 ABG HCO3 ABG O2 Saturation ABG Base Excess POC ABG pCO2 ABG Hemoglobin ABG Oxyhemoglobin ABG Glucose Oxyhemoglobin Sodium Potassium Chloride Carbon Dioxide BUN 22 H Creatinine 0.6 L Glucose 101 H POC Glucose 130 H Lactic Acid Calcium Phosphorus Magnesium AST ALT Lactate Dehydrogenase CK-MB (CK-2) C-Reactive Protein NT-Pro-B Natriuret Pep Total Protein Albumin Arterial Blood Glucose Urine WBC (Auto) 12/28/19 12/28/19 12/28/19 06:00 12:34 18:13 WBC RBC Hgb Hct MCHC RDW MCV MCH Lymph % (Auto) [place] % (Auto) [place] # Eos # Lymph # (Auto) [place] # (Auto) Eos # (Auto) Seg Neutrophils % Seg Neuts % (Manual) Baso # (Auto) Lymphocytes % (Manual) Monocytes % (Manual) Eosinophils % (Manual) Basophils % (Manual) Seg Neutrophils # Seg Neutrophils # Man Lymphocytes # (Manual) Monocytes # (Manual) Eosinophils # (Manual) Nucleated RBC % Basophils # (Manual) PT INR APTT Heparin Anti-Xa Level ABG pH POC ABG pO2 ABG pO2 ABG HCO3 ABG O2 Saturation ABG Base Excess POC ABG pCO2 ABG Hemoglobin ABG Oxyhemoglobin ABG Glucose Oxyhemoglobin Sodium Potassium Chloride Carbon Dioxide BUN Creatinine Glucose POC Glucose 150 H 161 H 128 H Lactic Acid Calcium Phosphorus Magnesium AST ALT Lactate Dehydrogenase CK-MB (CK-2) C-Reactive Protein NT-Pro-B Natriuret Pep Total Protein Albumin Arterial Blood Glucose Urine WBC (Auto) 12/28/19 12/29/19 12/29/19 23:36 05:21 11:40 WBC RBC Hgb Hct MCHC RDW MCV MCH Lymph % (Auto) [place] % (Auto) [place] # Eos # Lymph # (Auto) [place] # (Auto) Eos # (Auto) Seg Neutrophils % Seg Neuts % (Manual) Baso # (Auto) Lymphocytes % (Manual) Monocytes % (Manual) Eosinophils % (Manual) Basophils % (Manual) Seg Neutrophils # Seg Neutrophils # Man Lymphocytes # (Manual) Monocytes # (Manual) Eosinophils # (Manual) Nucleated RBC % Basophils # (Manual) PT INR APTT Heparin Anti-Xa Level ABG pH POC ABG pO2 ABG pO2 ABG HCO3 ABG O2 Saturation ABG Base Excess POC ABG pCO2 ABG Hemoglobin ABG Oxyhemoglobin ABG Glucose Oxyhemoglobin Sodium Potassium Chloride Carbon Dioxide BUN Creatinine Glucose POC Glucose 137 H 136 H 166 H Lactic Acid Calcium Phosphorus Magnesium AST ALT Lactate Dehydrogenase CK-MB (CK-2) C-Reactive Protein NT-Pro-B Natriuret Pep Total Protein Albumin Arterial Blood Glucose Urine WBC (Auto) 12/29/19 12/29/19 12/29/19 17:23 19:21 23:38 WBC RBC Hgb Hct MCHC RDW MCV MCH Lymph % (Auto) [place] % (Auto) [place] # Eos # Lymph # (Auto) [place] # (Auto) Eos # (Auto) Seg Neutrophils % Seg Neuts % (Manual) Baso # (Auto) Lymphocytes % (Manual) Monocytes % (Manual) Eosinophils % (Manual) Basophils % (Manual) Seg Neutrophils # Seg Neutrophils # Man Lymphocytes # (Manual) Monocytes # (Manual) Eosinophils # (Manual) Nucleated RBC % Basophils # (Manual) PT INR APTT Heparin Anti-Xa Level 0.20 L ABG pH POC ABG pO2 ABG pO2 ABG HCO3 ABG O2 Saturation ABG Base Excess POC ABG pCO2 ABG Hemoglobin ABG Oxyhemoglobin ABG Glucose Oxyhemoglobin Sodium Potassium Chloride Carbon Dioxide BUN Creatinine Glucose POC Glucose 144 H 141 H Lactic Acid Calcium Phosphorus Magnesium AST ALT Lactate Dehydrogenase CK-MB (CK-2) C-Reactive Protein NT-Pro-B Natriuret Pep Total Protein Albumin Arterial Blood Glucose Urine WBC (Auto) 12/30/19 12/30/19 12/30/19 03:58 03:58 04:59 WBC RBC 3.54 L Hgb 9.8 L Hct 30.7 L MCHC RDW 16.8 H MCV MCH Lymph % (Auto) [place] % (Auto) [place] # Eos # Lymph # (Auto) [place] # (Auto) Eos # (Auto) Seg Neutrophils % Seg Neuts % (Manual) Baso # (Auto) Lymphocytes % (Manual) Monocytes % (Manual) Eosinophils % (Manual) Basophils % (Manual) Seg Neutrophils # Seg Neutrophils # Man Lymphocytes # (Manual) Monocytes # (Manual) Eosinophils # (Manual) Nucleated RBC % Basophils # (Manual) PT INR APTT Heparin Anti-Xa Level ABG pH POC ABG pO2 ABG pO2 ABG HCO3 29.8 H ABG O2 Saturation ABG Base Excess 4.8 H POC ABG pCO2 ABG Hemoglobin 11.2 L ABG Oxyhemoglobin ABG Glucose Oxyhemoglobin 93.8 L Sodium Potassium Chloride 97.8 L Carbon Dioxide BUN 26 H Creatinine Glucose 168 H POC Glucose Lactic Acid Calcium Phosphorus Magnesium AST ALT Lactate Dehydrogenase CK-MB (CK-2) C-Reactive Protein NT-Pro-B Natriuret Pep Total Protein Albumin Arterial Blood Glucose Urine WBC (Auto) 12/30/19 12/30/19 12/30/19 05:45 11:34 17:28 WBC RBC Hgb Hct MCHC RDW MCV MCH Lymph % (Auto) [place] % (Auto) [place] # Eos # Lymph # (Auto) [place] # (Auto) Eos # (Auto) Seg Neutrophils % Seg Neuts % (Manual) Baso # (Auto) Lymphocytes % (Manual) Monocytes % (Manual) Eosinophils % (Manual) Basophils % (Manual) Seg Neutrophils # Seg Neutrophils # Man Lymphocytes # (Manual) Monocytes # (Manual) Eosinophils # (Manual) Nucleated RBC % Basophils # (Manual) PT INR APTT Heparin Anti-Xa Level ABG pH POC ABG pO2 ABG pO2 ABG HCO3 ABG O2 Saturation ABG Base Excess POC ABG pCO2 ABG Hemoglobin ABG Oxyhemoglobin ABG Glucose Oxyhemoglobin Sodium Potassium Chloride Carbon Dioxide BUN Creatinine Glucose POC Glucose 163 H 180 H 150 H Lactic Acid Calcium Phosphorus Magnesium AST ALT Lactate Dehydrogenase CK-MB (CK-2) C-Reactive Protein NT-Pro-B Natriuret Pep Total Protein Albumin Arterial Blood Glucose Urine WBC (Auto) 12/30/19 12/31/19 12/31/19 23:43 04:55 05:07 WBC RBC Hgb Hct MCHC RDW MCV MCH Lymph % (Auto) [place] % (Auto) [place] # Eos # Lymph # (Auto) [place] # (Auto) Eos # (Auto) Seg Neutrophils % Seg Neuts % (Manual) Baso # (Auto) Lymphocytes % (Manual) Monocytes % (Manual) Eosinophils % (Manual) Basophils % (Manual) Seg Neutrophils # Seg Neutrophils # Man Lymphocytes # (Manual) Monocytes # (Manual) Eosinophils # (Manual) Nucleated RBC % Basophils # (Manual) PT INR APTT Heparin Anti-Xa Level ABG pH POC ABG pO2 ABG pO2 ABG HCO3 ABG O2 Saturation ABG Base Excess POC ABG pCO2 ABG Hemoglobin ABG Oxyhemoglobin ABG Glucose Oxyhemoglobin Sodium Potassium 5.6 H D Chloride Carbon Dioxide BUN 33 H Creatinine Glucose 131 H POC Glucose 142 H 134 H Lactic Acid Calcium Phosphorus Magnesium AST ALT Lactate Dehydrogenase CK-MB (CK-2) C-Reactive Protein NT-Pro-B Natriuret Pep Total Protein Albumin Arterial Blood Glucose Urine WBC (Auto) 12/31/19 12/31/19 12/31/19 11:30 17:19 17:36 WBC RBC Hgb Hct MCHC RDW MCV MCH Lymph % (Auto) [place] % (Auto) [place] # Eos # Lymph # (Auto) [place] # (Auto) Eos # (Auto) Seg Neutrophils % Seg Neuts % (Manual) Baso # (Auto) Lymphocytes % (Manual) Monocytes % (Manual) Eosinophils % (Manual) Basophils % (Manual) Seg Neutrophils # Seg Neutrophils # Man Lymphocytes # (Manual) Monocytes # (Manual) Eosinophils # (Manual) Nucleated RBC % Basophils # (Manual) PT INR APTT Heparin Anti-Xa Level ABG pH POC ABG pO2 ABG pO2 ABG HCO3 ABG O2 Saturation ABG Base Excess POC ABG pCO2 ABG Hemoglobin ABG Oxyhemoglobin ABG Glucose Oxyhemoglobin Sodium Potassium Chloride Carbon Dioxide BUN 35 H Creatinine Glucose 156 H POC Glucose 158 H 181 H Lactic Acid Calcium Phosphorus Magnesium AST ALT Lactate Dehydrogenase CK-MB (CK-2) C-Reactive Protein NT-Pro-B Natriuret Pep Total Protein Albumin Arterial Blood Glucose Urine WBC (Auto) 12/31/19 12/31/19 12/31/19 18:16 19:41 21:53 WBC RBC Hgb Hct MCHC RDW MCV MCH Lymph % (Auto) [place] % (Auto) [place] # Eos # Lymph # (Auto) [place] # (Auto) Eos # (Auto) Seg Neutrophils % Seg Neuts % (Manual) Baso # (Auto) Lymphocytes % (Manual) Monocytes % (Manual) Eosinophils % (Manual) Basophils % (Manual) Seg Neutrophils # Seg Neutrophils # Man Lymphocytes # (Manual) Monocytes # (Manual) Eosinophils # (Manual) Nucleated RBC % Basophils # (Manual) PT INR APTT Heparin Anti-Xa Level 0.20 L ABG pH POC ABG pO2 ABG pO2 ABG HCO3 ABG O2 Saturation ABG Base Excess POC ABG pCO2 ABG Hemoglobin ABG Oxyhemoglobin ABG Glucose Oxyhemoglobin Sodium Potassium Chloride Carbon Dioxide BUN 34 H Creatinine Glucose 169 H POC Glucose 141 H Lactic Acid Calcium Phosphorus Magnesium AST ALT Lactate Dehydrogenase CK-MB (CK-2) C-Reactive Protein NT-Pro-B Natriuret Pep Total Protein Albumin Arterial Blood Glucose Urine WBC (Auto) 12/31/19 01/01/20 01/01/20 23:51 05:17 10:40 WBC RBC Hgb Hct MCHC RDW MCV MCH Lymph % (Auto) [place] % (Auto) [place] # Eos # Lymph # (Auto) [place] # (Auto) Eos # (Auto) Seg Neutrophils % Seg Neuts % (Manual) Baso # (Auto) Lymphocytes % (Manual) Monocytes % (Manual) Eosinophils % (Manual) Basophils % (Manual) Seg Neutrophils # Seg Neutrophils # Man Lymphocytes # (Manual) Monocytes # (Manual) Eosinophils # (Manual) Nucleated RBC % Basophils # (Manual) PT INR APTT Heparin Anti-Xa Level ABG pH POC ABG pO2 ABG pO2 ABG HCO3 ABG O2 Saturation ABG Base Excess POC ABG pCO2 ABG Hemoglobin ABG Oxyhemoglobin ABG Glucose Oxyhemoglobin Sodium Potassium Chloride Carbon Dioxide BUN 31 H Creatinine 0.7 L Glucose 137 H POC Glucose 131 H 155 H Lactic Acid Calcium Phosphorus Magnesium AST 73 H ALT 97 H Lactate Dehydrogenase CK-MB (CK-2) C-Reactive Protein NT-Pro-B Natriuret Pep 3866 H Total Protein Albumin 2.8 L Arterial Blood Glucose Urine WBC (Auto) 01/01/20 01/01/20 01/01/20 12:26 15:33 17:53 WBC 14.3 H RBC 3.35 L Hgb 9.1 L Hct 28.8 L MCHC RDW 17.0 H MCV MCH 27 L Lymph % (Auto) 7.0 L [place] % (Auto) 7.6 H [place] # Eos # Lymph # (Auto) 1.0 L [place] # (Auto) 1.1 H Eos # (Auto) Seg Neutrophils % 83.3 H Seg Neuts % (Manual) Baso # (Auto) Lymphocytes % (Manual) Monocytes % (Manual) Eosinophils % (Manual) Basophils % (Manual) Seg Neutrophils # 12.0 H Seg Neutrophils # Man Lymphocytes # (Manual) Monocytes # (Manual) Eosinophils # (Manual) Nucleated RBC % Basophils # (Manual) PT INR APTT Heparin Anti-Xa Level ABG pH POC ABG pO2 ABG pO2 ABG HCO3 ABG O2 Saturation ABG Base Excess POC ABG pCO2 ABG Hemoglobin ABG Oxyhemoglobin ABG Glucose Oxyhemoglobin Sodium Potassium Chloride Carbon Dioxide BUN Creatinine Glucose POC Glucose 128 H 128 H Lactic Acid Calcium Phosphorus Magnesium AST ALT Lactate Dehydrogenase CK-MB (CK-2) C-Reactive Protein NT-Pro-B Natriuret Pep Total Protein Albumin Arterial Blood Glucose Urine WBC (Auto) 01/01/20 01/02/20 01/02/20 23:04 05:39 07:00 WBC RBC Hgb Hct MCHC RDW MCV MCH Lymph % (Auto) [place] % (Auto) [place] # Eos # Lymph # (Auto) [place] # (Auto) Eos # (Auto) Seg Neutrophils % Seg Neuts % (Manual) Baso # (Auto) Lymphocytes % (Manual) Monocytes % (Manual) Eosinophils % (Manual) Basophils % (Manual) Seg Neutrophils # Seg Neutrophils # Man Lymphocytes # (Manual) Monocytes # (Manual) Eosinophils # (Manual) Nucleated RBC % Basophils # (Manual) PT INR APTT Heparin Anti-Xa Level 0.13 L ABG pH POC ABG pO2 ABG pO2 ABG HCO3 ABG O2 Saturation ABG Base Excess POC ABG pCO2 ABG Hemoglobin ABG Oxyhemoglobin ABG Glucose Oxyhemoglobin Sodium Potassium Chloride Carbon Dioxide BUN Creatinine Glucose POC Glucose 120 H 169 H Lactic Acid Calcium Phosphorus Magnesium AST ALT Lactate Dehydrogenase CK-MB (CK-2) C-Reactive Protein NT-Pro-B Natriuret Pep Total Protein Albumin Arterial Blood Glucose Urine WBC (Auto) 01/02/20 01/02/20 01/02/20 12:15 14:06 17:58 WBC RBC Hgb Hct MCHC RDW MCV MCH Lymph % (Auto) [place] % (Auto) [place] # Eos # Lymph # (Auto) [place] # (Auto) Eos # (Auto) Seg Neutrophils % Seg Neuts % (Manual) Baso # (Auto) Lymphocytes % (Manual) Monocytes % (Manual) Eosinophils % (Manual) Basophils % (Manual) Seg Neutrophils # Seg Neutrophils # Man Lymphocytes # (Manual) Monocytes # (Manual) Eosinophils # (Manual) Nucleated RBC % Basophils # (Manual) PT INR APTT Heparin Anti-Xa Level < 0.10 L ABG pH POC ABG pO2 ABG pO2 ABG HCO3 ABG O2 Saturation ABG Base Excess POC ABG pCO2 ABG Hemoglobin ABG Oxyhemoglobin ABG Glucose Oxyhemoglobin Sodium Potassium Chloride Carbon Dioxide BUN Creatinine Glucose POC Glucose 190 H 198 H Lactic Acid Calcium Phosphorus Magnesium AST ALT Lactate Dehydrogenase CK-MB (CK-2) C-Reactive Protein NT-Pro-B Natriuret Pep Total Protein Albumin Arterial Blood Glucose Urine WBC (Auto) 01/02/20 01/02/20 01/03/20 21:43 23:33 05:42 WBC RBC Hgb Hct MCHC RDW MCV MCH Lymph % (Auto) [place] % (Auto) [place] # Eos # Lymph # (Auto) [place] # (Auto) Eos # (Auto) Seg Neutrophils % Seg Neuts % (Manual) Baso # (Auto) Lymphocytes % (Manual) Monocytes % (Manual) Eosinophils % (Manual) Basophils % (Manual) Seg Neutrophils # Seg Neutrophils # Man Lymphocytes # (Manual) Monocytes # (Manual) Eosinophils # (Manual) Nucleated RBC % Basophils # (Manual) PT INR APTT Heparin Anti-Xa Level 0.10 L ABG pH POC ABG pO2 ABG pO2 ABG HCO3 ABG O2 Saturation ABG Base Excess POC ABG pCO2 ABG Hemoglobin ABG Oxyhemoglobin ABG Glucose Oxyhemoglobin Sodium Potassium Chloride Carbon Dioxide BUN Creatinine Glucose POC Glucose 180 H 163 H Lactic Acid Calcium Phosphorus Magnesium AST ALT Lactate Dehydrogenase CK-MB (CK-2) C-Reactive Protein NT-Pro-B Natriuret Pep Total Protein Albumin Arterial Blood Glucose Urine WBC (Auto) 01/03/20 01/03/20 01/03/20 06:50 07:25 07:45 WBC 12.1 H RBC 3.35 L Hgb 9.0 L Hct 28.9 L MCHC 31 L RDW 16.6 H MCV MCH 27 L Lymph % (Auto) 13.0 L [place] % (Auto) 8.6 H [place] # Eos # Lymph # (Auto) [place] # (Auto) 1.0 H Eos # (Auto) Seg Neutrophils % 75.9 H Seg Neuts % (Manual) Baso # (Auto) Lymphocytes % (Manual) Monocytes % (Manual) Eosinophils % (Manual) Basophils % (Manual) Seg Neutrophils # 9.2 H Seg Neutrophils # Man Lymphocytes # (Manual) Monocytes # (Manual) Eosinophils # (Manual) Nucleated RBC % Basophils # (Manual) PT INR APTT Heparin Anti-Xa Level 0.29 L ABG pH POC ABG pO2 ABG pO2 ABG HCO3 ABG O2 Saturation ABG Base Excess POC ABG pCO2 ABG Hemoglobin ABG Oxyhemoglobin ABG Glucose Oxyhemoglobin Sodium Potassium 3.3 L D Chloride Carbon Dioxide 35 H D BUN 23 H Creatinine 0.6 L Glucose 149 H POC Glucose Lactic Acid Calcium Phosphorus Magnesium AST ALT 88 H Lactate Dehydrogenase CK-MB (CK-2) C-Reactive Protein NT-Pro-B Natriuret Pep Total Protein 6.2 L Albumin 2.9 L Arterial Blood Glucose Urine WBC (Auto) 01/03/20 01/03/20 01/03/20 12:05 17:42 18:30 WBC RBC Hgb Hct MCHC RDW MCV MCH Lymph % (Auto) [place] % (Auto) [place] # Eos # Lymph # (Auto) [place] # (Auto) Eos # (Auto) Seg Neutrophils % Seg Neuts % (Manual) Baso # (Auto) Lymphocytes % (Manual) Monocytes % (Manual) Eosinophils % (Manual) Basophils % (Manual) Seg Neutrophils # Seg Neutrophils # Man Lymphocytes # (Manual) Monocytes # (Manual) Eosinophils # (Manual) Nucleated RBC % Basophils # (Manual) PT INR APTT Heparin Anti-Xa Level ABG pH POC ABG pO2 ABG pO2 70.7 L ABG HCO3 36.1 H ABG O2 Saturation 94.4 L ABG Base Excess 10.0 H POC ABG pCO2 ABG Hemoglobin 9.7 L ABG Oxyhemoglobin ABG Glucose Oxyhemoglobin 91.8 L Sodium Potassium Chloride Carbon Dioxide BUN Creatinine Glucose POC Glucose 128 H 132 H Lactic Acid Calcium Phosphorus Magnesium AST ALT Lactate Dehydrogenase CK-MB (CK-2) C-Reactive Protein NT-Pro-B Natriuret Pep Total Protein Albumin Arterial Blood Glucose Urine WBC (Auto) 01/04/20 01/04/20 01/04/20 00:10 04:26 05:23 WBC RBC Hgb Hct MCHC RDW MCV MCH Lymph % (Auto) [place] % (Auto) [place] # Eos # Lymph # (Auto) [place] # (Auto) Eos # (Auto) Seg Neutrophils % Seg Neuts % (Manual) Baso # (Auto) Lymphocytes % (Manual) Monocytes % (Manual) Eosinophils % (Manual) Basophils % (Manual) Seg Neutrophils # Seg Neutrophils # Man Lymphocytes # (Manual) Monocytes # (Manual) Eosinophils # (Manual) Nucleated RBC % Basophils # (Manual) PT INR APTT Heparin Anti-Xa Level 0.16 L ABG pH POC ABG pO2 ABG pO2 ABG HCO3 ABG O2 Saturation ABG Base Excess POC ABG pCO2 ABG Hemoglobin ABG Oxyhemoglobin ABG Glucose Oxyhemoglobin Sodium Potassium Chloride Carbon Dioxide BUN Creatinine Glucose POC Glucose 121 H 119 H Lactic Acid Calcium Phosphorus Magnesium AST ALT Lactate Dehydrogenase CK-MB (CK-2) C-Reactive Protein NT-Pro-B Natriuret Pep Total Protein Albumin Arterial Blood Glucose Urine WBC (Auto) 01/04/20 01/04/20 01/04/20 09:50 09:50 12:18 WBC 15.4 H RBC 3.30 L Hgb 8.7 L Hct 28.2 L MCHC 31 L RDW 17.0 H MCV MCH 26 L Lymph % (Auto) [place] % (Auto) 7.6 H [place] # Eos # Lymph # (Auto) [place] # (Auto) 1.2 H Eos # (Auto) Seg Neutrophils % 75.4 H Seg Neuts % (Manual) Baso # (Auto) Lymphocytes % (Manual) Monocytes % (Manual) Eosinophils % (Manual) Basophils % (Manual) Seg Neutrophils # 11.6 H Seg Neutrophils # Man Lymphocytes # (Manual) Monocytes # (Manual) Eosinophils # (Manual) Nucleated RBC % Basophils # (Manual) PT INR APTT Heparin Anti-Xa Level ABG pH POC ABG pO2 ABG pO2 ABG HCO3 ABG O2 Saturation ABG Base Excess POC ABG pCO2 ABG Hemoglobin ABG Oxyhemoglobin ABG Glucose Oxyhemoglobin Sodium 148 H Potassium 3.5 L Chloride Carbon Dioxide 32 H BUN Creatinine 0.6 L Glucose 114 H POC Glucose 111 H Lactic Acid Calcium Phosphorus Magnesium AST ALT 59 H Lactate Dehydrogenase CK-MB (CK-2) C-Reactive Protein NT-Pro-B Natriuret Pep Total Protein Albumin 2.6 L Arterial Blood Glucose Urine WBC (Auto) 01/05/20 01/05/20 01/05/20 04:05 04:05 05:19 WBC 11.7 H RBC 3.50 L Hgb 9.3 L Hct 29.9 L MCHC 31 L RDW 16.6 H MCV MCH 27 L Lymph % (Auto) 13.1 L [place] % (Auto) 9.7 H [place] # Eos # Lymph # (Auto) [place] # (Auto) 1.1 H Eos # (Auto) Seg Neutrophils % 74.0 H Seg Neuts % (Manual) Baso # (Auto) Lymphocytes % (Manual) Monocytes % (Manual) Eosinophils % (Manual) Basophils % (Manual) Seg Neutrophils # 8.6 H Seg Neutrophils # Man Lymphocytes # (Manual) Monocytes # (Manual) Eosinophils # (Manual) Nucleated RBC % Basophils # (Manual) PT INR APTT Heparin Anti-Xa Level ABG pH POC ABG pO2 ABG pO2 ABG HCO3 ABG O2 Saturation ABG Base Excess POC ABG pCO2 ABG Hemoglobin ABG Oxyhemoglobin ABG Glucose Oxyhemoglobin Sodium 151 H Potassium Chloride Carbon Dioxide 34 H BUN Creatinine 0.7 L Glucose POC Glucose 112 H Lactic Acid Calcium Phosphorus Magnesium AST ALT 59 H Lactate Dehydrogenase CK-MB (CK-2) C-Reactive Protein NT-Pro-B Natriuret Pep Total Protein 5.8 L Albumin 2.6 L Arterial Blood Glucose Urine WBC (Auto) 01/05/20 01/06/20 01/06/20 16:04 00:23 04:44 WBC RBC 3.36 L Hgb 8.9 L Hct 28.7 L MCHC 31 L RDW 16.9 H MCV MCH 26 L Lymph % (Auto) [place] % (Auto) 9.4 H [place] # Eos # Lymph # (Auto) [place] # (Auto) Eos # (Auto) Seg Neutrophils % Seg Neuts % (Manual) Baso # (Auto) Lymphocytes % (Manual) Monocytes % (Manual) Eosinophils % (Manual) Basophils % (Manual) Seg Neutrophils # Seg Neutrophils # Man Lymphocytes # (Manual) Monocytes # (Manual) Eosinophils # (Manual) Nucleated RBC % Basophils # (Manual) PT INR APTT Heparin Anti-Xa Level ABG pH POC ABG pO2 ABG pO2 ABG HCO3 ABG O2 Saturation ABG Base Excess POC ABG pCO2 ABG Hemoglobin ABG Oxyhemoglobin ABG Glucose Oxyhemoglobin Sodium 151 H Potassium 3.2 L Chloride Carbon Dioxide 34 H BUN Creatinine 0.6 L Glucose POC Glucose 107 H Lactic Acid Calcium Phosphorus Magnesium AST ALT Lactate Dehydrogenase CK-MB (CK-2) C-Reactive Protein NT-Pro-B Natriuret Pep Total Protein Albumin Arterial Blood Glucose Urine WBC (Auto) 01/06/20 01/06/20 01/06/20 04:44 05:33 12:04 WBC RBC Hgb Hct MCHC RDW MCV MCH Lymph % (Auto) [place] % (Auto) [place] # Eos # Lymph # (Auto) [place] # (Auto) Eos # (Auto) Seg Neutrophils % Seg Neuts % (Manual) Baso # (Auto) Lymphocytes % (Manual) Monocytes % (Manual) Eosinophils % (Manual) Basophils % (Manual) Seg Neutrophils # Seg Neutrophils # Man Lymphocytes # (Manual) Monocytes # (Manual) Eosinophils # (Manual) Nucleated RBC % Basophils # (Manual) PT INR APTT Heparin Anti-Xa Level ABG pH POC ABG pO2 ABG pO2 ABG HCO3 ABG O2 Saturation ABG Base Excess POC ABG pCO2 ABG Hemoglobin ABG Oxyhemoglobin ABG Glucose Oxyhemoglobin Sodium 151 H Potassium 3.4 L Chloride Carbon Dioxide 33 H BUN Creatinine 0.6 L Glucose 118 H POC Glucose 118 H 123 H Lactic Acid Calcium Phosphorus Magnesium AST ALT Lactate Dehydrogenase CK-MB (CK-2) C-Reactive Protein NT-Pro-B Natriuret Pep Total Protein 6.2 L Albumin 2.6 L Arterial Blood Glucose Urine WBC (Auto) 01/06/20 01/07/20 01/07/20 17:54 00:06 04:10 WBC RBC 3.42 L Hgb 8.9 L Hct 29.0 L MCHC 31 L RDW 17.1 H MCV MCH 26 L Lymph % (Auto) [place] % (Auto) 8.4 H [place] # Eos # Lymph # (Auto) [place] # (Auto) Eos # (Auto) Seg Neutrophils % Seg Neuts % (Manual) Baso # (Auto) Lymphocytes % (Manual) Monocytes % (Manual) Eosinophils % (Manual) Basophils % (Manual) Seg Neutrophils # Seg Neutrophils # Man Lymphocytes # (Manual) Monocytes # (Manual) Eosinophils # (Manual) Nucleated RBC % Basophils # (Manual) PT INR APTT Heparin Anti-Xa Level ABG pH POC ABG pO2 ABG pO2 ABG HCO3 ABG O2 Saturation ABG Base Excess POC ABG pCO2 ABG Hemoglobin ABG Oxyhemoglobin ABG Glucose Oxyhemoglobin Sodium Potassium Chloride Carbon Dioxide BUN Creatinine Glucose POC Glucose 112 H 126 H Lactic Acid Calcium Phosphorus Magnesium AST ALT Lactate Dehydrogenase CK-MB (CK-2) C-Reactive Protein NT-Pro-B Natriuret Pep Total Protein Albumin Arterial Blood Glucose Urine WBC (Auto) 01/07/20 01/07/20 01/07/20 04:10 05:59 12:27 WBC RBC Hgb Hct MCHC RDW MCV MCH Lymph % (Auto) [place] % (Auto) [place] # Eos # Lymph # (Auto) [place] # (Auto) Eos # (Auto) Seg Neutrophils % Seg Neuts % (Manual) Baso # (Auto) Lymphocytes % (Manual) Monocytes % (Manual) Eosinophils % (Manual) Basophils % (Manual) Seg Neutrophils # Seg Neutrophils # Man Lymphocytes # (Manual) Monocytes # (Manual) Eosinophils # (Manual) Nucleated RBC % Basophils # (Manual) PT INR APTT Heparin Anti-Xa Level ABG pH POC ABG pO2 ABG pO2 ABG HCO3 ABG O2 Saturation ABG Base Excess POC ABG pCO2 ABG Hemoglobin ABG Oxyhemoglobin ABG Glucose Oxyhemoglobin Sodium 153 H Potassium 3.5 L Chloride Carbon Dioxide 34 H BUN Creatinine 0.6 L Glucose 121 H POC Glucose 121 H 126 H Lactic Acid Calcium Phosphorus Magnesium AST ALT Lactate Dehydrogenase CK-MB (CK-2) C-Reactive Protein NT-Pro-B Natriuret Pep Total Protein 5.9 L Albumin 2.4 L Arterial Blood Glucose Urine WBC (Auto) 01/07/20 01/08/20 01/08/20 18:12 00:03 05:41 WBC RBC Hgb Hct MCHC RDW MCV MCH Lymph % (Auto) [place] % (Auto) R[place]con # Eos # Lymph # (Auto) [place] # (Auto) Eos # (Auto) Seg Neutrophils % Seg Neuts % (Manual) Baso # (Auto) Lymphocytes % (Manual) Monocytes % (Manual) Eosinophils % (Manual) Basophils % (Manual) Seg Neutrophils # Seg Neutrophils # Man Lymphocytes # (Manual) Monocytes # (Manual) Eosinophils # (Manual) Nucleated RBC % Basophils # (Manual) PT INR APTT Heparin Anti-Xa Level ABG pH POC ABG pO2 ABG pO2 ABG HCO3 ABG O2 Saturation ABG Base Excess POC ABG pCO2 ABG Hemoglobin ABG Oxyhemoglobin ABG Glucose Oxyhemoglobin Sodium Potassium Chloride Carbon Dioxide BUN Creatinine Glucose POC Glucose 124 H 130 H 138 H Lactic Acid Calcium Phosphorus Magnesium AST ALT Lactate Dehydrogenase CK-MB (CK-2) C-Reactive Protein NT-Pro-B Natriuret Pep Total Protein Albumin Arterial Blood Glucose Urine WBC (Auto) 01/08/20 01/08/20 01/08/20 09:28 11:42 18:21 WBC RBC Hgb Hct MCHC RDW MCV MCH Lymph % (Auto) [place] % (Auto) [place] # Eos # Lymph # (Auto) [place] # (Auto) Eos # (Auto) Seg Neutrophils % Seg Neuts % (Manual) Baso # (Auto) Lymphocytes % (Manual) Monocytes % (Manual) Eosinophils % (Manual) Basophils % (Manual) Seg Neutrophils # Seg Neutrophils # Man Lymphocytes # (Manual) Monocytes # (Manual) Eosinophils # (Manual) Nucleated RBC % Basophils # (Manual) PT INR APTT Heparin Anti-Xa Level ABG pH POC ABG pO2 ABG pO2 ABG HCO3 ABG O2 Saturation ABG Base Excess POC ABG pCO2 ABG Hemoglobin ABG Oxyhemoglobin ABG Glucose Oxyhemoglobin Sodium Potassium Chloride Carbon Dioxide BUN Creatinine Glucose POC Glucose 181 H 150 H 129 H Lactic Acid Calcium Phosphorus Magnesium AST ALT Lactate Dehydrogenase CK-MB (CK-2) C-Reactive Protein NT-Pro-B Natriuret Pep Total Protein Albumin Arterial Blood Glucose Urine WBC (Auto) 01/08/20 01/08/20 01/09/20 19:25 23:55 04:11 WBC RBC 3.43 L Hgb 8.9 L Hct 28.7 L MCHC 31 L RDW 17.6 H MCV MCH 26 L Lymph % (Auto) [place] % (Auto) 8.6 H [place] # Eos # Lymph # (Auto) [place] # (Auto) Eos # (Auto) Seg Neutrophils % Seg Neuts % (Manual) Baso # (Auto) Lymphocytes % (Manual) Monocytes % (Manual) Eosinophils % (Manual) Basophils % (Manual) Seg Neutrophils # Seg Neutrophils # Man Lymphocytes # (Manual) Monocytes # (Manual) Eosinophils # (Manual) Nucleated RBC % Basophils # (Manual) PT INR APTT Heparin Anti-Xa Level ABG pH POC ABG pO2 ABG pO2 ABG HCO3 ABG O2 Saturation ABG Base Excess POC ABG pCO2 ABG Hemoglobin ABG Oxyhemoglobin ABG Glucose Oxyhemoglobin Sodium Potassium Chloride Carbon Dioxide BUN Creatinine 0.7 L Glucose 117 H POC Glucose 132 H Lactic Acid Calcium Phosphorus Magnesium AST ALT Lactate Dehydrogenase CK-MB (CK-2) C-Reactive Protein NT-Pro-B Natriuret Pep Total Protein Albumin Arterial Blood Glucose Urine WBC (Auto) 01/09/20 01/09/20 01/09/20 04:11 05:38 22:58 WBC RBC Hgb Hct MCHC RDW MCV MCH Lymph % (Auto) [place] % (Auto) [place] # Eos # Lymph # (Auto) [place] # (Auto) Eos # (Auto) Seg Neutrophils % Seg Neuts % (Manual) Baso # (Auto) Lymphocytes % (Manual) Monocytes % (Manual) Eosinophils % (Manual) Basophils % (Manual) Seg Neutrophils # Seg Neutrophils # Man Lymphocytes # (Manual) Monocytes # (Manual) Eosinophils # (Manual) Nucleated RBC % Basophils # (Manual) PT INR APTT Heparin Anti-Xa Level ABG pH POC ABG pO2 ABG pO2 ABG HCO3 ABG O2 Saturation ABG Base Excess POC ABG pCO2 ABG Hemoglobin ABG Oxyhemoglobin ABG Glucose Oxyhemoglobin Sodium 147 H Potassium 3.3 L D Chloride Carbon Dioxide 32 H BUN Creatinine 0.6 L Glucose 106 H POC Glucose 107 H 113 H Lactic Acid Calcium Phosphorus Magnesium AST ALT Lactate Dehydrogenase CK-MB (CK-2) C-Reactive Protein NT-Pro-B Natriuret Pep Total Protein Albumin Arterial Blood Glucose Urine WBC (Auto) 01/10/20 01/10/20 01/10/20 04:05 11:36 17:54 WBC RBC Hgb Hct MCHC RDW MCV MCH Lymph % (Auto) [place] % (Auto) [place] # Eos # Lymph # (Auto) [place] # (Auto) Eos # (Auto) Seg Neutrophils % Seg Neuts % (Manual) Baso # (Auto) Lymphocytes % (Manual) Monocytes % (Manual) Eosinophils % (Manual) Basophils % (Manual) Seg Neutrophils # Seg Neutrophils # Man Lymphocytes # (Manual) Monocytes # (Manual) Eosinophils # (Manual) Nucleated RBC % Basophils # (Manual) PT INR APTT Heparin Anti-Xa Level ABG pH POC ABG pO2 ABG pO2 ABG HCO3 ABG O2 Saturation ABG Base Excess POC ABG pCO2 ABG Hemoglobin ABG Oxyhemoglobin ABG Glucose Oxyhemoglobin Sodium Potassium Chloride Carbon Dioxide BUN Creatinine 0.7 L Glucose 110 H POC Glucose 129 H 117 H Lactic Acid Calcium Phosphorus Magnesium AST ALT Lactate Dehydrogenase CK-MB (CK-2) C-Reactive Protein NT-Pro-B Natriuret Pep Total Protein Albumin Arterial Blood Glucose Urine WBC (Auto) 01/10/20 01/11/20 01/11/20 23:52 03:19 12:09 WBC RBC Hgb Hct MCHC RDW MCV MCH Lymph % (Auto) [place] % (Auto) [place] # Eos # Lymph # (Auto) [place] # (Auto) Eos # (Auto) Seg Neutrophils % Seg Neuts % (Manual) Baso # (Auto) Lymphocytes % (Manual) Monocytes % (Manual) Eosinophils % (Manual) Basophils % (Manual) Seg Neutrophils # Seg Neutrophils # Man Lymphocytes # (Manual) Monocytes # (Manual) Eosinophils # (Manual) Nucleated RBC % Basophils # (Manual) PT INR APTT Heparin Anti-Xa Level ABG pH POC ABG pO2 ABG pO2 ABG HCO3 ABG O2 Saturation ABG Base Excess POC ABG pCO2 ABG Hemoglobin ABG Oxyhemoglobin ABG Glucose Oxyhemoglobin Sodium Potassium Chloride Carbon Dioxide BUN Creatinine Glucose POC Glucose 117 H 136 H 115 H Lactic Acid Calcium Phosphorus Magnesium AST ALT Lactate Dehydrogenase CK-MB (CK-2) C-Reactive Protein NT-Pro-B Natriuret Pep Total Protein Albumin Arterial Blood Glucose Urine WBC (Auto) 01/11/20 01/11/20 01/12/20 18:27 23:28 00:23 WBC RBC Hgb 9.8 L Hct 31.6 L MCHC 31 L RDW 17.8 H MCV 83 L MCH 26 L Lymph % (Auto) [place] % (Auto) 8.0 H [place] # Eos # Lymph # (Auto) [place] # (Auto) Eos # (Auto) Seg Neutrophils % Seg Neuts % (Manual) Baso # (Auto) Lymphocytes % (Manual) Monocytes % (Manual) Eosinophils % (Manual) Basophils % (Manual) Seg Neutrophils # Seg Neutrophils # Man Lymphocytes # (Manual) Monocytes # (Manual) Eosinophils # (Manual) Nucleated RBC % Basophils # (Manual) PT INR APTT Heparin Anti-Xa Level ABG pH POC ABG pO2 ABG pO2 ABG HCO3 ABG O2 Saturation ABG Base Excess POC ABG pCO2 ABG Hemoglobin ABG Oxyhemoglobin ABG Glucose Oxyhemoglobin Sodium Potassium Chloride Carbon Dioxide BUN Creatinine Glucose POC Glucose 118 H 122 H Lactic Acid Calcium Phosphorus Magnesium AST ALT Lactate Dehydrogenase CK-MB (CK-2) C-Reactive Protein NT-Pro-B Natriuret Pep Total Protein Albumin Arterial Blood Glucose Urine WBC (Auto) 01/12/20 01/12/20 01/12/20 00:23 04:18 04:18 WBC RBC Hgb 9.6 L Hct 30.9 L MCHC 31 L RDW 17.3 H MCV 81 L MCH 25 L Lymph % (Auto) [place] % (Auto) [place] # Eos # Lymph # (Auto) [place] # (Auto) Eos # (Auto) Seg Neutrophils % Seg Neuts % (Manual) Baso # (Auto) Lymphocytes % (Manual) Monocytes % (Manual) Eosinophils % (Manual) Basophils % (Manual) Seg Neutrophils # Seg Neutrophils # Man Lymphocytes # (Manual) Monocytes # (Manual) Eosinophils # (Manual) Nucleated RBC % Basophils # (Manual) PT INR APTT Heparin Anti-Xa Level ABG pH POC ABG pO2 ABG pO2 ABG HCO3 ABG O2 Saturation ABG Base Excess POC ABG pCO2 ABG Hemoglobin ABG Oxyhemoglobin ABG Glucose Oxyhemoglobin Sodium Potassium Chloride Carbon Dioxide BUN Creatinine 0.7 L 0.7 L Glucose 111 H 108 H POC Glucose Lactic Acid Calcium Phosphorus Magnesium AST ALT Lactate Dehydrogenase CK-MB (CK-2) C-Reactive Protein NT-Pro-B Natriuret Pep Total Protein Albumin 2.6 L Arterial Blood Glucose Urine WBC (Auto) 01/12/20 01/12/20 01/12/20 06:03 12:27 13:58 WBC RBC Hgb Hct MCHC RDW MCV MCH Lymph % (Auto) [place] % (Auto) [place] # Eos # Lymph # (Auto) [place] # (Auto) Eos # (Auto) Seg Neutrophils % Seg Neuts % (Manual) Baso # (Auto) Lymphocytes % (Manual) Monocytes % (Manual) Eosinophils % (Manual) Basophils % (Manual) Seg Neutrophils # Seg Neutrophils # Man Lymphocytes # (Manual) Monocytes # (Manual) Eosinophils # (Manual) Nucleated RBC % Basophils # (Manual) PT INR APTT Heparin Anti-Xa Level ABG pH 7.453 H POC ABG pO2 76.6 L ABG pO2 ABG HCO3 ABG O2 Saturation ABG Base Excess POC ABG pCO2 ABG Hemoglobin 10.3 L ABG Oxyhemoglobin ABG Glucose 99 H Oxyhemoglobin Sodium Potassium Chloride Carbon Dioxide BUN Creatinine Glucose POC Glucose 128 H 121 H Lactic Acid Calcium Phosphorus Magnesium AST ALT Lactate Dehydrogenase CK-MB (CK-2) C-Reactive Protein NT-Pro-B Natriuret Pep Total Protein Albumin Arterial Blood Glucose 99 H Urine WBC (Auto) 01/12/20 01/13/20 01/13/20 18:24 12:01 17:46 WBC RBC Hgb Hct MCHC RDW MCV MCH Lymph % (Auto) [place] % (Auto) [place] # Eos # Lymph # (Auto) [place] # (Auto) Eos # (Auto) Seg Neutrophils % Seg Neuts % (Manual) Baso # (Auto) Lymphocytes % (Manual) Monocytes % (Manual) Eosinophils % (Manual) Basophils % (Manual) Seg Neutrophils # Seg Neutrophils # Man Lymphocytes # (Manual) Monocytes # (Manual) Eosinophils # (Manual) Nucleated RBC % Basophils # (Manual) PT INR APTT Heparin Anti-Xa Level ABG pH POC ABG pO2 ABG pO2 ABG HCO3 ABG O2 Saturation ABG Base Excess POC ABG pCO2 ABG Hemoglobin ABG Oxyhemoglobin ABG Glucose Oxyhemoglobin Sodium Potassium Chloride Carbon Dioxide BUN Creatinine Glucose POC Glucose 119 H 107 H 124 H Lactic Acid Calcium Phosphorus Magnesium AST ALT Lactate Dehydrogenase CK-MB (CK-2) C-Reactive Protein NT-Pro-B Natriuret Pep Total Protein Albumin Arterial Blood Glucose Urine WBC (Auto) 01/13/20 01/14/20 01/14/20 20:40 00:10 05:33 WBC RBC Hgb Hct MCHC RDW MCV MCH Lymph % (Auto) [place] % (Auto) [place] # Eos # Lymph # (Auto) [place] # (Auto) Eos # (Auto) Seg Neutrophils % Seg Neuts % (Manual) Baso # (Auto) Lymphocytes % (Manual) Monocytes % (Manual) Eosinophils % (Manual) Basophils % (Manual) Seg Neutrophils # Seg Neutrophils # Man Lymphocytes # (Manual) Monocytes # (Manual) Eosinophils # (Manual) Nucleated RBC % Basophils # (Manual) PT INR APTT Heparin Anti-Xa Level ABG pH POC ABG pO2 ABG pO2 65.3 L ABG HCO3 31.8 H ABG O2 Saturation 93.5 L ABG Base Excess 6.7 H POC ABG pCO2 ABG Hemoglobin 13.3 L ABG Oxyhemoglobin ABG Glucose Oxyhemoglobin 90.9 L Sodium Potassium Chloride Carbon Dioxide BUN Creatinine Glucose POC Glucose 111 H 111 H Lactic Acid Calcium Phosphorus Magnesium AST ALT Lactate Dehydrogenase CK-MB (CK-2) C-Reactive Protein NT-Pro-B Natriuret Pep Total Protein Albumin Arterial Blood Glucose Urine WBC (Auto) 01/14/20 01/14/20 01/14/20 12:10 16:14 16:14 WBC RBC Hgb 10.6 L Hct 34.2 L MCHC 31 L RDW 18.3 H MCV 83 L MCH 26 L Lymph % (Auto) [place] % (Auto) 7.4 H [place] # Eos # Lymph # (Auto) [place] # (Auto) Eos # (Auto) Seg Neutrophils % 71.9 H Seg Neuts % (Manual) Baso # (Auto) Lymphocytes % (Manual) Monocytes % (Manual) Eosinophils % (Manual) Basophils % (Manual) Seg Neutrophils # Seg Neutrophils # Man Lymphocytes # (Manual) Monocytes # (Manual) Eosinophils # (Manual) Nucleated RBC % Basophils # (Manual) PT INR APTT Heparin Anti-Xa Level ABG pH POC ABG pO2 ABG pO2 ABG HCO3 ABG O2 Saturation ABG Base Excess POC ABG pCO2 ABG Hemoglobin ABG Oxyhemoglobin ABG Glucose Oxyhemoglobin Sodium Potassium Chloride Carbon Dioxide 31 H BUN Creatinine 0.6 L Glucose 131 H POC Glucose 139 H Lactic Acid Calcium Phosphorus Magnesium AST ALT Lactate Dehydrogenase CK-MB (CK-2) C-Reactive Protein NT-Pro-B Natriuret Pep Total Protein Albumin Arterial Blood Glucose Urine WBC (Auto) 01/14/20 01/15/20 01/15/20 18:05 00:52 05:35 WBC RBC Hgb Hct MCHC RDW MCV MCH Lymph % (Auto) [place] % (Auto) [place] # Eos # Lymph # (Auto) [place] # (Auto) Eos # (Auto) Seg Neutrophils % Seg Neuts % (Manual) Baso # (Auto) Lymphocytes % (Manual) Monocytes % (Manual) Eosinophils % (Manual) Basophils % (Manual) Seg Neutrophils # Seg Neutrophils # Man Lymphocytes # (Manual) Monocytes # (Manual) Eosinophils # (Manual) Nucleated RBC % Basophils # (Manual) PT INR APTT Heparin Anti-Xa Level ABG pH POC ABG pO2 ABG pO2 ABG HCO3 ABG O2 Saturation ABG Base Excess POC ABG pCO2 ABG Hemoglobin ABG Oxyhemoglobin ABG Glucose Oxyhemoglobin Sodium Potassium Chloride Carbon Dioxide BUN Creatinine Glucose POC Glucose 147 H 140 H 159 H Lactic Acid Calcium Phosphorus Magnesium AST ALT Lactate Dehydrogenase CK-MB (CK-2) C-Reactive Protein NT-Pro-B Natriuret Pep Total Protein Albumin Arterial Blood Glucose Urine WBC (Auto) 01/15/20 01/15/20 01/16/20 12:52 17:43 00:32 WBC RBC Hgb Hct MCHC RDW MCV MCH Lymph % (Auto) [place] % (Auto) [place] # Eos # Lymph # (Auto) [place] # (Auto) Eos # (Auto) Seg Neutrophils % Seg Neuts % (Manual) Baso # (Auto) Lymphocytes % (Manual) Monocytes % (Manual) Eosinophils % (Manual) Basophils % (Manual) Seg Neutrophils # Seg Neutrophils # Man Lymphocytes # (Manual) Monocytes # (Manual) Eosinophils # (Manual) Nucleated RBC % Basophils # (Manual) PT INR APTT Heparin Anti-Xa Level ABG pH POC ABG pO2 ABG pO2 ABG HCO3 ABG O2 Saturation ABG Base Excess POC ABG pCO2 ABG Hemoglobin ABG Oxyhemoglobin ABG Glucose Oxyhemoglobin Sodium Potassium Chloride Carbon Dioxide BUN Creatinine Glucose POC Glucose 164 H 167 H 153 H Lactic Acid Calcium Phosphorus Magnesium AST ALT Lactate Dehydrogenase CK-MB (CK-2) C-Reactive Protein NT-Pro-B Natriuret Pep Total Protein Albumin Arterial Blood Glucose Urine WBC (Auto) 01/16/20 01/16/20 01/17/20 05:46 11:48 06:38 WBC RBC Hgb Hct MCHC RDW MCV MCH Lymph % (Auto) [place] % (Auto) [place] # Eos # Lymph # (Auto) [place] # (Auto) Eos # (Auto) Seg Neutrophils % Seg Neuts % (Manual) Baso # (Auto) Lymphocytes % (Manual) Monocytes % (Manual) Eosinophils % (Manual) Basophils % (Manual) Seg Neutrophils # Seg Neutrophils # Man Lymphocytes # (Manual) Monocytes # (Manual) Eosinophils # (Manual) Nucleated RBC % Basophils # (Manual) PT INR APTT Heparin Anti-Xa Level ABG pH POC ABG pO2 ABG pO2 ABG HCO3 ABG O2 Saturation ABG Base Excess POC ABG pCO2 ABG Hemoglobin ABG Oxyhemoglobin ABG Glucose Oxyhemoglobin Sodium Potassium Chloride Carbon Dioxide BUN Creatinine Glucose POC Glucose 163 H 155 H 116 H Lactic Acid Calcium Phosphorus Magnesium AST ALT Lactate Dehydrogenase CK-MB (CK-2) C-Reactive Protein NT-Pro-B Natriuret Pep Total Protein Albumin Arterial Blood Glucose Urine WBC (Auto) 01/17/20 01/17/20 01/18/20 11:36 17:43 00:12 WBC RBC Hgb Hct MCHC RDW MCV MCH Lymph % (Auto) [place] % (Auto) [place] # Eos # Lymph # (Auto) [place] # (Auto) Eos # (Auto) Seg Neutrophils % Seg Neuts % (Manual) Baso # (Auto) Lymphocytes % (Manual) Monocytes % (Manual) Eosinophils % (Manual) Basophils % (Manual) Seg Neutrophils # Seg Neutrophils # Man Lymphocytes # (Manual) Monocytes # (Manual) Eosinophils # (Manual) Nucleated RBC % Basophils # (Manual) PT INR APTT Heparin Anti-Xa Level ABG pH POC ABG pO2 ABG pO2 ABG HCO3 ABG O2 Saturation ABG Base Excess POC ABG pCO2 ABG Hemoglobin ABG Oxyhemoglobin ABG Glucose Oxyhemoglobin Sodium Potassium Chloride Carbon Dioxide BUN Creatinine Glucose POC Glucose 110 H 134 H 108 H Lactic Acid Calcium Phosphorus Magnesium AST ALT Lactate Dehydrogenase CK-MB (CK-2) C-Reactive Protein NT-Pro-B Natriuret Pep Total Protein Albumin Arterial Blood Glucose Urine WBC (Auto) 01/18/20 01/18/20 01/18/20 05:37 06:46 06:46 WBC RBC Hgb 10.1 L Hct 32.2 L MCHC 31 L RDW 18.1 H MCV 81 L MCH 25 L Lymph % (Auto) [place] % (Auto) [place] # Eos # Lymph # (Auto) [place] # (Auto) Eos # (Auto) Seg Neutrophils % 71.9 H Seg Neuts % (Manual) Baso # (Auto) Lymphocytes % (Manual) Monocytes % (Manual) Eosinophils % (Manual) Basophils % (Manual) Seg Neutrophils # Seg Neutrophils # Man Lymphocytes # (Manual) Monocytes # (Manual) Eosinophils # (Manual) Nucleated RBC % Basophils # (Manual) PT INR APTT Heparin Anti-Xa Level ABG pH POC ABG pO2 ABG pO2 ABG HCO3 ABG O2 Saturation ABG Base Excess POC ABG pCO2 ABG Hemoglobin ABG Oxyhemoglobin ABG Glucose Oxyhemoglobin Sodium Potassium Chloride Carbon Dioxide BUN Creatinine 0.7 L Glucose 155 H POC Glucose 168 H Lactic Acid Calcium Phosphorus Magnesium AST ALT Lactate Dehydrogenase CK-MB (CK-2) C-Reactive Protein NT-Pro-B Natriuret Pep Total Protein Albumin Arterial Blood Glucose Urine WBC (Auto) 01/18/20 01/18/20 01/18/20 12:05 17:14 23:28 WBC RBC Hgb Hct MCHC RDW MCV MCH Lymph % (Auto) [place] % (Auto) [place] # Eos # Lymph # (Auto) [place] # (Auto) Eos # (Auto) Seg Neutrophils % Seg Neuts % (Manual) Baso # (Auto) Lymphocytes % (Manual) Monocytes % (Manual) Eosinophils % (Manual) Basophils % (Manual) Seg Neutrophils # Seg Neutrophils # Man Lymphocytes # (Manual) Monocytes # (Manual) Eosinophils # (Manual) Nucleated RBC % Basophils # (Manual) PT INR APTT Heparin Anti-Xa Level ABG pH POC ABG pO2 ABG pO2 ABG HCO3 ABG O2 Saturation ABG Base Excess POC ABG pCO2 ABG Hemoglobin ABG Oxyhemoglobin ABG Glucose Oxyhemoglobin Sodium Potassium Chloride Carbon Dioxide BUN Creatinine Glucose POC Glucose 128 H 126 H 128 H Lactic Acid Calcium Phosphorus Magnesium AST ALT Lactate Dehydrogenase CK-MB (CK-2) C-Reactive Protein NT-Pro-B Natriuret Pep Total Protein Albumin Arterial Blood Glucose Urine WBC (Auto) 01/19/20 01/19/20 01/19/20 05:39 12:33 17:36 WBC RBC Hgb Hct MCHC RDW MCV MCH Lymph % (Auto) [place] % (Auto) [place] # Eos # Lymph # (Auto) [place] # (Auto) Eos # (Auto) Seg Neutrophils % Seg Neuts % (Manual) Baso # (Auto) Lymphocytes % (Manual) Monocytes % (Manual) Eosinophils % (Manual) Basophils % (Manual) Seg Neutrophils # Seg Neutrophils # Man Lymphocytes # (Manual) Monocytes # (Manual) Eosinophils # (Manual) Nucleated RBC % Basophils # (Manual) PT INR APTT Heparin Anti-Xa Level ABG pH POC ABG pO2 ABG pO2 ABG HCO3 ABG O2 Saturation ABG Base Excess POC ABG pCO2 ABG Hemoglobin ABG Oxyhemoglobin ABG Glucose Oxyhemoglobin Sodium Potassium Chloride Carbon Dioxide BUN Creatinine Glucose POC Glucose 164 H 171 H 152 H Lactic Acid Calcium Phosphorus Magnesium AST ALT Lactate Dehydrogenase CK-MB (CK-2) C-Reactive Protein NT-Pro-B Natriuret Pep Total Protein Albumin Arterial Blood Glucose Urine WBC (Auto) 01/20/20 01/20/20 01/20/20 00:12 05:20 05:35 WBC RBC Hgb 9.2 L Hct 29.4 L MCHC 31 L RDW 17.9 H MCV 81 L MCH 25 L Lymph % (Auto) [place] % (Auto) [place] # Eos # Lymph # (Auto) [place] # (Auto) Eos # (Auto) Seg Neutrophils % Seg Neuts % (Manual) Baso # (Auto) Lymphocytes % (Manual) Monocytes % (Manual) Eosinophils % (Manual) Basophils % (Manual) Seg Neutrophils # Seg Neutrophils # Man Lymphocytes # (Manual) Monocytes # (Manual) Eosinophils # (Manual) Nucleated RBC % Basophils # (Manual) PT INR APTT Heparin Anti-Xa Level ABG pH POC ABG pO2 ABG pO2 ABG HCO3 ABG O2 Saturation ABG Base Excess POC ABG pCO2 ABG Hemoglobin ABG Oxyhemoglobin ABG Glucose Oxyhemoglobin Sodium Potassium Chloride Carbon Dioxide BUN Creatinine Glucose POC Glucose 120 H 136 H Lactic Acid Calcium Phosphorus Magnesium AST ALT Lactate Dehydrogenase CK-MB (CK-2) C-Reactive Protein NT-Pro-B Natriuret Pep Total Protein Albumin Arterial Blood Glucose Urine WBC (Auto) 01/20/20 01/20/20 01/20/20 05:40 11:58 14:55 WBC RBC Hgb 9.0 L Hct 28.3 L MCHC RDW MCV MCH Lymph % (Auto) [place] % (Auto) [place] # Eos # Lymph # (Auto) [place] # (Auto) Eos # (Auto) Seg Neutrophils % Seg Neuts % (Manual) Baso # (Auto) Lymphocytes % (Manual) Monocytes % (Manual) Eosinophils % (Manual) Basophils % (Manual) Seg Neutrophils # Seg Neutrophils # Man Lymphocytes # (Manual) Monocytes # (Manual) Eosinophils # (Manual) Nucleated RBC % Basophils # (Manual) PT INR APTT Heparin Anti-Xa Level ABG pH POC ABG pO2 ABG pO2 ABG HCO3 ABG O2 Saturation ABG Base Excess POC ABG pCO2 ABG Hemoglobin ABG Oxyhemoglobin ABG Glucose Oxyhemoglobin Sodium Potassium Chloride Carbon Dioxide 32 H BUN 22 H Creatinine 0.7 L Glucose 128 H POC Glucose 152 H Lactic Acid Calcium Phosphorus Magnesium AST ALT Lactate Dehydrogenase CK-MB (CK-2) C-Reactive Protein NT-Pro-B Natriuret Pep Total Protein Albumin Arterial Blood Glucose Urine WBC (Auto) 01/20/20 01/20/20 01/20/20 14:55 18:14 21:35 WBC RBC Hgb Hct MCHC RDW MCV MCH Lymph % (Auto) [place] % (Auto) [place] # Eos # Lymph # (Auto) [place] # (Auto) Eos # (Auto) Seg Neutrophils % Seg Neuts % (Manual) Baso # (Auto) Lymphocytes % (Manual) Monocytes % (Manual) Eosinophils % (Manual) Basophils % (Manual) Seg Neutrophils # Seg Neutrophils # Man Lymphocytes # (Manual) Monocytes # (Manual) Eosinophils # (Manual) Nucleated RBC % Basophils # (Manual) PT 20.4 H INR 1.72 H APTT 40.6 H Heparin Anti-Xa Level > 2.00 H ABG pH POC ABG pO2 ABG pO2 ABG HCO3 ABG O2 Saturation ABG Base Excess POC ABG pCO2 ABG Hemoglobin ABG Oxyhemoglobin ABG Glucose Oxyhemoglobin Sodium Potassium Chloride Carbon Dioxide BUN Creatinine Glucose POC Glucose 150 H Lactic Acid Calcium Phosphorus Magnesium AST ALT Lactate Dehydrogenase CK-MB (CK-2) C-Reactive Protein NT-Pro-B Natriuret Pep Total Protein Albumin Arterial Blood Glucose Urine WBC (Auto) 01/21/20 01/21/20 01/21/20 00:30 05:47 05:59 WBC RBC Hgb Hct MCHC RDW MCV MCH Lymph % (Auto) [place] % (Auto) [place] # Eos # Lymph # (Auto) [place] # (Auto) Eos # (Auto) Seg Neutrophils % Seg Neuts % (Manual) Baso # (Auto) Lymphocytes % (Manual) Monocytes % (Manual) Eosinophils % (Manual) Basophils % (Manual) Seg Neutrophils # Seg Neutrophils # Man Lymphocytes # (Manual) Monocytes # (Manual) Eosinophils # (Manual) Nucleated RBC % Basophils # (Manual) PT INR APTT Heparin Anti-Xa Level 1.93 H ABG pH POC ABG pO2 ABG pO2 ABG HCO3 ABG O2 Saturation ABG Base Excess POC ABG pCO2 ABG Hemoglobin ABG Oxyhemoglobin ABG Glucose Oxyhemoglobin Sodium Potassium Chloride Carbon Dioxide BUN Creatinine Glucose POC Glucose 126 H 148 H Lactic Acid Calcium Phosphorus Magnesium AST ALT Lactate Dehydrogenase CK-MB (CK-2) C-Reactive Protein NT-Pro-B Natriuret Pep Total Protein Albumin Arterial Blood Glucose Urine WBC (Auto) 01/21/20 01/21/20 01/21/20 12:32 18:20 23:54 WBC RBC Hgb Hct MCHC RDW MCV MCH Lymph % (Auto) [place] % (Auto) [place] # Eos # Lymph # (Auto) [place] # (Auto) Eos # (Auto) Seg Neutrophils % Seg Neuts % (Manual) Baso # (Auto) Lymphocytes % (Manual) Monocytes % (Manual) Eosinophils % (Manual) Basophils % (Manual) Seg Neutrophils # Seg Neutrophils # Man Lymphocytes # (Manual) Monocytes # (Manual) Eosinophils # (Manual) Nucleated RBC % Basophils # (Manual) PT INR APTT Heparin Anti-Xa Level 1.28 H ABG pH POC ABG pO2 ABG pO2 ABG HCO3 ABG O2 Saturation ABG Base Excess POC ABG pCO2 ABG Hemoglobin ABG Oxyhemoglobin ABG Glucose Oxyhemoglobin Sodium Potassium Chloride Carbon Dioxide BUN Creatinine Glucose POC Glucose 112 H 146 H Lactic Acid Calcium Phosphorus Magnesium AST ALT Lactate Dehydrogenase CK-MB (CK-2) C-Reactive Protein NT-Pro-B Natriuret Pep Total Protein Albumin Arterial Blood Glucose Urine WBC (Auto) 01/22/20 01/22/20 01/22/20 04:45 04:45 05:48 WBC RBC Hgb 9.3 L Hct 29.0 L MCHC RDW MCV MCH Lymph % (Auto) [place] % (Auto) [place] # Eos # Lymph # (Auto) [place] # (Auto) Eos # (Auto) Seg Neutrophils % Seg Neuts % (Manual) Baso # (Auto) Lymphocytes % (Manual) Monocytes % (Manual) Eosinophils % (Manual) Basophils % (Manual) Seg Neutrophils # Seg Neutrophils # Man Lymphocytes # (Manual) Monocytes # (Manual) Eosinophils # (Manual) Nucleated RBC % Basophils # (Manual) PT INR APTT Heparin Anti-Xa Level 1.34 H ABG pH POC ABG pO2 ABG pO2 ABG HCO3 ABG O2 Saturation ABG Base Excess POC ABG pCO2 ABG Hemoglobin ABG Oxyhemoglobin ABG Glucose Oxyhemoglobin Sodium Potassium Chloride Carbon Dioxide BUN Creatinine Glucose POC Glucose 142 H Lactic Acid Calcium Phosphorus Magnesium AST ALT Lactate Dehydrogenase CK-MB (CK-2) C-Reactive Protein NT-Pro-B Natriuret Pep Total Protein Albumin Arterial Blood Glucose Urine WBC (Auto) 01/22/20 01/22/20 01/22/20 08:22 09:58 12:44 WBC RBC Hgb Hct MCHC RDW MCV MCH Lymph % (Auto) [place] % (Auto) [place] # Eos # Lymph # (Auto) [place] # (Auto) Eos # (Auto) Seg Neutrophils % Seg Neuts % (Manual) Baso # (Auto) Lymphocytes % (Manual) Monocytes % (Manual) Eosinophils % (Manual) Basophils % (Manual) Seg Neutrophils # Seg Neutrophils # Man Lymphocytes # (Manual) Monocytes # (Manual) Eosinophils # (Manual) Nucleated RBC % Basophils # (Manual) PT 16.9 H INR 1.34 H APTT Heparin Anti-Xa Level ABG pH POC ABG pO2 ABG pO2 ABG HCO3 ABG O2 Saturation ABG Base Excess POC ABG pCO2 ABG Hemoglobin ABG Oxyhemoglobin ABG Glucose Oxyhemoglobin Sodium Potassium Chloride Carbon Dioxide BUN Creatinine Glucose POC Glucose 131 H 156 H Lactic Acid Calcium Phosphorus Magnesium AST ALT Lactate Dehydrogenase CK-MB (CK-2) C-Reactive Protein NT-Pro-B Natriuret Pep Total Protein Albumin Arterial Blood Glucose Urine WBC (Auto) Chest x-ray: pending Allied health notes reviewed: nursing
--- NOTE | 2020-01-22 14:23 | Cardiac Catherization Report ---
CARDIAC CATHETERIZATION REPORT REASON FOR PROCEDURE: The patient is a 64-year-old man admitted with respiratory failure, persistent pneumonia. During his course, he reported some chest pain and ECG was suspicious for inferolateral ST elevation injury pattern. A cardiac catheterization was recommended. PROCEDURES: 1. Left heart catheterization. 2. Selective left and right coronary angiography. 3. Left ventricular angiography. 4. Sedation start time, start 0950, end 1009. DESCRIPTION OF PROCEDURE: The patient was prepped and draped in a sterile fashion after informed consent. The right radial cath site was prepped and draped after negative Winston's test. The right radial artery was entered using Seldinger technique followed by placement of a 6-[place] hydrophilic sheath. Routine radial cocktail was administered via the sheath. Selective left and right coronary angiography was performed using a #3.5 left Adela, and a #4 right Adela. Pigtail catheter was used for left ventricular angiography. The catheters were removed, sheath removed, and hemostasis achieved using a TR band. The patient was returned to the postprocedure unit in stable condition. There were no complications. FINDINGS: HEMODYNAMICS: Left ventricular end-diastolic pressure was 36, following coronary angiography. Ascending aortic pressure was 118/90. There was no significant pressure gradient on pullback across the aortic valve. CORONARY ANGIOGRAPHY: There was mild ostial narrowing of the left main coronary artery. The left anterior descending artery was notable for a stent in its proximal to mid segment. The stented segment was widely patent, with only very mild in-stent restenosis. Otherwise, the LAD and diagonal branches were free of significant disease. A small to medium size ramus intermedius artery was free of significant disease. The circumflex artery and its obtuse marginal branches were free of significant disease. The right coronary artery was a large dominant vessel. There was a long segment of mild atherosclerosis of the mid right coronary artery, associated with a 20-30% luminal narrowing. Otherwise, the rest of the right coronary system was free of significant atherosclerosis. There was mild left ventricular systolic dysfunction with ejection fraction 40-45%. CONCLUSION: 1. Widely patent previous LAD stent. 2. Otherwise, mild nonobstructive atherosclerosis of the mid right coronary artery. 3. Mild left ventricular systolic dysfunction, ejection fraction 40-45%. RECOMMENDATION: Risk factor modification and medical therapy. [facility]# [id number] [place]
[2020-01-22 17:30] LABS: BUN/Creatinine Ratio 29; Blood Urea Nitrogen 29 mg/dL (9-20); Calcium 9.1 mg/dL (8.4-10.2); Hemolysis Index 3
[2020-01-22] MEDS: APIXABAN 5 MG TAB PO SCH (21:42)
[2020-01-22] MEDS: POLYETHYLENE GLYCOL 3350 17 GM POWDER PO SCH (21:42)
[2020-01-22] MEDS: TAMSULOSIN 0.4 MG CAP PO SCH (21:42)
[2020-01-23] MEDS: METOPROLOL TARTRATE 25 MG TAB PO SCH ×4 (00:46→18:19)
[2020-01-23] MEDS: MORPHINE 2 MG/1 ML INJ IV PRN (03:39)
[2020-01-23] MEDS: NITROGLYCERIN 0.4 MG PATCH 24HR TD SCH (06:01)
[2020-01-23] MEDS: FUROSEMIDE 20 MG/2 ML INJ IV SCH ×2 (06:01→18:19)
[2020-01-23] MEDS: FAMOTIDINE 20 MG TAB PO SCH ×2 (10:41→21:02)
[2020-01-23] MEDS: DOCUSATE SODIUM 100 MG/10 ML ORAL LIQD FEEDTUBE SCH ×2 (10:42→21:01)
[2020-01-23] MEDS: CLOPIDOGREL 75 MG TAB PO SCH (10:42)
[2020-01-23] MEDS: QUEtiapine 100 MG TAB PO SCH ×2 (10:42→21:02)
[2020-01-23] MEDS: AMIODARONE 200 MG TAB PO SCH (10:42)
[2020-01-23] MEDS: GLYCOPYRROLATE 2 MG TAB PO SCH ×2 (10:42→21:01)
[2020-01-23] MEDS: APIXABAN 5 MG TAB PO SCH ×2 (10:42→21:02)
--- NOTE | 2020-01-23 10:48 | Progress Note ---
Assessment and Plan Assessment and plan: --Intermittent chest pain; Cardiology is following, planning left heart cath tomorrow Continue current cardiac medications --Acute on chronic hypoxemic respiratory failure; Patient has tracheostomy on vent Continue nebulizers, , trach care Wean off ventilator as tolerated Pulmonary critical following --Acute exacerbation of COPD; Patient is currently on ventilatory support Continue nebulizers --Left lower lobe PE; Continue Eliquis, ventilatory support --Acute right lower extremity DVT; Patient is on Eliquis --Bilateral multifocal pneumonia/community-acquired Completed antibiotics, improved --Severe sepsis/bilateral pneumonia: Completed antibiotics COVID-19 test; 11/24/2019; negative 11/26/2019; negative 12/29/2019: Negative --Paroxysmal atrial fibrillation; Now rate controlled, Stable on amiodarone and Eliquis --Acute on chronic diastolic congestive heart failure Continue diuretics, beta-blockers, EF 50 to 55% --H/o CAD [[facility] 12/2018 in-stent restenosis] Patient is stable on current cardiac medications --Hypertensive emergency; present on admission Reasonable blood pressures, continue current antihypertensives As needed medications --History of alcohol abuse/alcohol withdrawal; Was on CIWA protocol, now stable --Oropharyngeal dysphagia; status post PEG placement Continue PEG feeds per protocol --History of partial small bowel obstruction; resolved Surgery evaluated. --Obesity; BMI 34.7 Patient needs weight reduction when medically stable --Severe protein calorie malnutrition/hypoalbuminemia Nutrition supplements, dietitian following, PEG feeds --DVT prophylaxis;Eliquis --Full CODE STATUS 01/05; Pt stable. NGT output 650cc over 24 hours, bilious. No f/c, WBC within normal limits. cont NG suction and cont to hold TF 01/06: Abs series - mild improvement in small bowel distension in mid abdomen, normal gas/stool pattern in colon. NGT in duodenum. Continue to hold tube feeding, maintain NG tube with low intermittent suction. Patient's was updated by phone. Continue to provide supportive care and monitor clinically. 01/07: +BMs today and NGT/PEG output appears more gastric today. Plan to clamp NGT, if tolerates start TF from tomorrow. cont supportive care. 01/08; Gastric output decreased over last 24 hours. NGT has been clamped x 24 hours. plan to dc NGT and to start TTF via PEG - vital HF @10cc/hr 01/09: clinically stable, tolerating TF. monitor BMP, wean off from vent as tolerated clinically stable, on TF. wean off vent as tolerated 01/11: wean off from vent, cont to monitor, on TF 01/12: wean off from vent, cont to monitor, on TF. need placement - unfunded 01/13; remains on ventilatory support, unable to wean, DC planning possible LTA C, unfunded 01/14; patient of ventilatory support, T-piece tracheostomy on oxygen, LTAC placement per case management 01/16; tracheostomy, patient on full ventilatory support, wean off vent support as tolerated, pending LTAC placement, social financial issues 01/17; awaiting LTAC placement, insurance and financial issues 01/18; patient tracheostomy remains on ventilatory support 01/19; wean off ventilator as tolerated 01/20; remains on ventilatory support, patient complains of intermittent chest pain, cardiology recommend left heart catheterization tomorrow 01/22/2020. Patient for left heart catheterization per cardiology. Patient remains on AC mode ventilation rate 12, tidal volume 450, FiO2 30% and PEEP of 6. Continue tracheostomy care, airway management and secretion control. 01/23/2020. Cardiac catheterization completed yesterday revealed widely patent previous LAD stent with mild nonobstructive atherosclerosis of the right mid coronary artery and rest of the coronary system was without significant atherosclerosis. The left ventricle ejection fraction was mildly impaired at 40 to 45%. There was some hypokinesis of the basal inferior wall suggestive of previous or recent infarct. Continue GDMT for coronary artery disease including beta blockers, topical nitrates, statin and Plavix. Continue Eliquis for paroxysmal atrial fibrillation and PE. Continue diuresis with Lasix and follow electrolytes closely. Continue Robinul and scopolamine for secretion control and daily SBT per pulmonary. Also, continue bronchodilators and routine trach care/airway management. T-piece trials per pulmonary as tolerated. The high probability of a clinically significant, sudden or life threatening deterioration of the [Respiratory, cardiovascular & neurological] system(s) required my full and direct attention, intervention and personal management. The aggregate critical care time was [34] minutes without overlap. Time includes spent on [x] Data Review and interpretation [x] Patient assessment and monitoring of vital signs [x] Documentation [x] Medication orders and management History Interval history: Patient is a 64-year-old male with known history of hypertension, COPD, history of coronary artery disease, CHF with ejection fraction of 20 to 25% in August 2018 presenting to the emergency room via EMS complaining of shortness of breath. Patient was found to be hypoxic and in respiratory distress. Patient was placed on CPAP in route to the hospital. Patient remained hypoxic on CPAP BiPAP ,subsequently was intubated. Work-up in the emergency room including chest x-ray reveals bilateral pneumonia. He had an elevated white count of 14 and also had an elevated BNP. sputum cultures positive for Pseudomonas, ID treated with cefepime and Vanco. His hospital course became complicated with acute PE, DVT, paroxysmal atrial fib - placed on chronic anticoagulation. Patient was difficult to wean off, status po st trach and PEG, remains on mechanical ventilation with trach tube. He then developed partial small bowel obstruction valuated by general surgeon symptom improved with medical Mx, patient was briefly weaned off ventilatory support however, was in respiratory failure requiring full ventilatory support. Cardiac catheterization on 01/22/2020. No new issues overnight. Hospitalist Physical - Constitutional Vitals: Temp Pulse Resp BP Pulse Ox 98.1 F 88 24 121/78 83 L 01/23/20 08:00 01/23/20 09:00 01/23/20 09:00 01/23/20 09:00 01/23/20 09:00 General appearance: Present: well-nourished, obese, other (Tracheostomy on vent) - EENT Eyes: Present: PERRL, EOM intact ENT: hearing intact, clear oral mucosa, dentition normal - Neck Neck: Present: supple, normal ROM - Respiratory Respiratory effort: normal Respiratory: bilateral: CTA - Cardiovascular Rhythm: regular Heart Sounds: Present: S1 & S2. Absent: gallop, rub - Extremities Extremities: no ischemia, No edema, Full ROM - Abdominal General gastrointestinal: soft, non-tender, non-distended, normal bowel sounds - Integumentary Integumentary: Present: clear, warm, dry - Neurologic Neurologic: CNII-XII intact, moves all extremities HEART Score - HEART Score Troponin: Troponin T < 0.010 ng/mL (0.00-0.029) 01/19/20 01:35 Results - Labs CBC & Chem 7: 01/22/20 04:45 01/22/20 08:09 Labs: Laboratory Last Values WBC 9.0 K/mm3 (4.5-11.0) 01/20/20 05:20 RBC 3.65 M/mm3 (3.65-5.03) 01/20/20 05:20 Hgb 9.3 gm/dl (11.8-15.2) L 01/22/20 04:45 Hct 29.0 % (35.5-45.6) L 01/22/20 04:45 MCV 81 fl (84-94) L 01/20/20 05:20 MCH 25 pg (28-32) L 01/20/20 05:20 MCHC 31 % (32-34) L 01/20/20 05:20 RDW 17.9 % (13.2-15.2) H 01/20/20 05:20 Plt Count 324 K/mm3 (140-440) 01/22/20 04:45 Lymph % (Auto) 18.6 % (13.4-35.0) 01/18/20 06:46 Stokes % (Auto) 6.8 % (0.0-7.3) 01/18/20 06:46 Eos % (Auto) 1.9 % (0.0-4.3) 01/18/20 06:46 Baso % (Auto) 0.8 % (0.0-1.8) 01/18/20 06:46 Lymph # (Auto) 1.8 K/mm3 (1.2-5.4) 01/18/20 06:46 Stokes # (Auto) 0.7 K/mm3 (0.0-0.8) 01/18/20 06:46 Eos # (Auto) 0.2 K/mm3 (0.0-0.4) 01/18/20 06:46 Baso # (Auto) 0.1 K/mm3 (0.0-0.1) 01/18/20 06:46 Add Manual Diff Complete 12/19/19 11:32 Total Counted 100 12/19/19 11:32 Seg Neutrophils % 71.9 % (40.0-70.0) H 01/18/20 06:46 Seg Neuts % (Manual) 82.0 % (40.0-70.0) H 12/19/19 11:32 Band Neutrophils % 0 % 12/19/19 11:32 Lymphocytes % (Manual) 10.0 % (13.4-35.0) L 12/19/19 11:32 Reactive Lymphs % (Man) 0 % 12/19/19 11:32 Monocytes % (Manual) 6.0 % (0.0-7.3) 12/19/19 11:32 Eosinophils % (Manual) 2.0 % (0.0-4.3) 12/19/19 11:32 Basophils % (Manual) 0 % (0.0-1.8) 12/19/19 11:32 Metamyelocytes % 0 % 12/19/19 11:32 Myelocytes % 0 % 12/19/19 11:32 Promyelocytes % 0 % 12/19/19 11:32 Blast Cells % 0 % 12/19/19 11:32 Nucleated RBC % 1.0 % (0.0-0.9) H 12/19/19 11:32 Seg Neutrophils # 7.0 K/mm3 (1.8-7.7) 01/18/20 06:46 Seg Neutrophils # Man 12.0 K/mm3 (1.8-7.7) H 12/19/19 11:32 Band Neutrophils # 0.0 K/mm3 12/19/19 11:32 Lymphocytes # (Manual) 1.5 K/mm3 (1.2-5.4) 12/19/19 11:32 Abs React Lymphs (Man) 0.0 K/mm3 12/19/19 11:32 Monocytes # (Manual) 0.9 K/mm3 (0.0-0.8) H 12/19/19 11:32 Eosinophils # (Manual) 0.3 K/mm3 (0.0-0.4) 12/19/19 11:32 Basophils # (Manual) 0.0 K/mm3 (0.0-0.1) 12/19/19 11:32 Metamyelocytes # 0.0 K/mm3 12/19/19 11:32 Myelocytes # 0.0 K/mm3 12/19/19 11:32 Promyelocytes # 0.0 K/mm3 12/19/19 11:32 Blast Cells # 0.0 K/mm3 12/19/19 11:32 WBC Morphology Not Reportable 12/19/19 11:32 Hypersegmented Neuts Not Reportable 12/19/19 11:32 Hyposegmented Neuts Not Reportable 12/19/19 11:32 Hypogranular Neuts Not Reportable 12/19/19 11:32 Smudge Cells Not Reportable 12/19/19 11:32 Toxic Granulation Not Reportable 12/19/19 11:32 Toxic Vacuolation Not Reportable 12/19/19 11:32 Dohle Bodies Not Reportable 12/19/19 11:32 Pelger-Huet Anomaly Not Reportable 12/19/19 11:32 Hector Rods Not Reportable 12/19/19 11:32 Platelet Estimate Consistent w auto 12/19/19 11:32 Clumped Platelets Not Reportable 12/19/19 11:32 Plt Clumps, EDTA Not Reportable 12/19/19 11:32 Large Platelets Not Reportable 12/19/19 11:32 Giant Platelets Not Reportable 12/19/19 11:32 Platelet Satelliting Not Reportable 12/19/19 11:32 Plt Morphology Comment Not Reportable 12/19/19 11:32 RBC Morphology Not Reportable 12/19/19 11:32 Dimorphic RBCs Not Reportable 12/19/19 11:32 Polychromasia Not Reportable 12/19/19 11:32 Hypochromasia Few 12/19/19 11:32 Poikilocytosis Not Reportable 12/19/19 11:32 Anisocytosis 1+ 12/19/19 11:32 Microcytosis Few 12/19/19 11:32 Macrocytosis Few 12/19/19 11:32 Spherocytes Not Reportable 12/19/19 11:32 Pappenheimer Bodies Not Reportable 12/19/19 11:32 Sickle Cells Not Reportable 12/19/19 11:32 Target Cells Not Reportable 12/19/19 11:32 Tear Drop Cells Not Reportable 12/19/19 11:32 Ovalocytes Not Reportable 12/19/19 11:32 Helmet Cells Not Reportable 12/19/19 11:32 Gottlieb-Lengby Bodies Not Reportable 12/19/19 11:32 Hinckley Rings Not Reportable 12/19/19 11:32 [place] Cells Not Reportable 12/19/19 11:32 Bite Cells Not Reportable 12/19/19 11:32 Crenated Cell Not Reportable 12/19/19 11:32 Elliptocytes Not Reportable 12/19/19 11:32 Acanthocytes (Spur) Not Reportable 12/19/19 11:32 Rouleaux Not Reportable 12/19/19 11:32 Hemoglobin C Crystals Not Reportable 12/19/19 11:32 Schistocytes Not Reportable 12/19/19 11:32 Malaria parasites Not Reportable 12/19/19 11:32 Clifford Bodies Not Reportable 12/19/19 11:32 Hem Pathologist Commnt No 12/19/19 11:32 PT 16.9 Sec. (12.2-14.9) H 01/22/20 09:58 INR 1.34 (0.87-1.13) H 01/22/20 09:58 APTT 31.5 Sec. (24.2-36.6) 01/22/20 09:58 Heparin Anti-Xa Level 1.34 U.I./ml (0.3-0.7) H 01/22/20 04:45 ABG pH 7.449 pH Units (7.350-7.450) 01/13/20 20:40 POC ABG pCO2 45.6 mmHg (32.0-48.0) 01/12/20 13:58 ABG pCO2 46.9 mm Hg 01/13/20 20:40 POC ABG pO2 76.6 mmHg (83-108) L 01/12/20 13:58 ABG pO2 65.3 mm Hg (80.0-90.0) L 01/13/20 20:40 POC ABG HCO3 31.2 01/12/20 13:58 ABG HCO3 31.8 mmol/L (20.0-26.0) H 01/13/20 20:40 ABG O2 Saturation 93.5 % (95.0-99.0) L 01/13/20 20:40 ABG O2 Content 17.0 (0.0-44) 01/13/20 20:40 POC ABG Base Excess 6.5 01/12/20 13:58 ABG Base Excess 6.7 mmol/L (-2.0-3.0) H 01/13/20 20:40 ABG Hemoglobin 13.3 gm/dl (14.0-18.0) L 01/13/20 20:40 ABG Oxyhemoglobin 84 (94-98) L 12/22/19 03:22 ABG Carboxyhemoglobin 2.2 % (0.0-5.0) 01/13/20 20:40 ABG Methemoglobin 0.6 % (0.0-1.5) 01/13/20 20:40 ABG Sodium 136.8 mmol/L (136.0-145.0) 01/12/20 13:58 ABG Potassium 3.7 mmol/L (3.40-4.50) 01/12/20 13:58 ABG Chloride 103.0 mmol/L (98-107) 01/12/20 13:58 ABG Glucose 99 mg/dL (65-95) H 01/12/20 13:58 Oxyhemoglobin 90.9 % (95.0-99.0) L 01/13/20 20:40 Carboxyhemoglobin 0.7 (0.5-1.5) 12/22/19 03:22 FiO2 35 % 01/13/20 20:40 Sodium 139 mmol/L (137-145) 01/22/20 08:09 Potassium 4.3 mmol/L (3.6-5.0) 01/22/20 08:09 Chloride 97.8 mmol/L (98-107) L 01/22/20 08:09 Carbon Dioxide 29 mmol/L (22-30) 01/22/20 08:09 Anion Gap 17 mmol/L 01/22/20 08:09 BUN 29 mg/dL (9-20) H 01/22/20 08:09 Creatinine 1.0 mg/dL (0.8-1.3) 01/22/20 08:09 Estimated GFR > 60 ml/min 01/22/20 08:09 BUN/Creatinine Ratio 29 % 01/22/20 08:09 Glucose 128 mg/dL (75-100) H 01/22/20 08:09 POC Glucose 163 mg/dL (70-105) H 01/23/20 05:37 Lactic Acid 2.50 mmol/L (0.7-2.0) H* 11/24/19 10:37 Magnesium 2.60 mg/dL (1.7-2.3) H 12/07/19 12:41 Calcium 9.1 mg/dL (8.4-10.2) 01/22/20 08:09 Ferritin 84.4 ng/mL (30.0-300.0) 11/24/19 04:53 Direct Bilirubin < 0.2 mg/dL (0-0.2) 12/08/19 03:55 Indirect Bilirubin 0.2 mg/dL 12/08/19 03:55 Phosphorus 3.40 mg/dL (2.5-4.5) 01/12/20 12:01 Total Bilirubin 0.50 mg/dL (0.1-1.2) 01/12/20 00:23 Total Creatine Kinase 141 units/L (55-170) 11/24/19 02:53 CK-MB (CK-2) 4.3 ng/mL (0.0-4.0) H 11/24/19 02:53 AST 16 units/L (5-40) 01/12/20 00:23 ALT 22 units/L (7-56) 01/12/20 00:23 CK-MB (CK-2) Rel Index 3.0 (0-4) 11/24/19 02:53 Alkaline Phosphatase 59 units/L (35-129) 01/12/20 00:23 C-Reactive Protein 8.50 mg/dL (0.00-1.30) H 12/01/19 12:16 Lactate Dehydrogenase 228 units/L (91-180) H 12/19/19 04:45 Troponin T < 0.010 ng/mL (0.00-0.029) 01/19/20 01:35 NT-Pro-B Natriuret Pep 3866 pg/mL (0-900) H 01/01/20 10:40 Total Protein 6.3 g/dL (6.3-8.2) 01/12/20 00:23 Albumin 2.6 g/dL (3.9-5) L 01/12/20 00:23 Albumin/Globulin Ratio 0.7 % 01/12/20 00:23 Procalcitonin 0.76 ng/mL (<0.15) 01/01/20 10:40 Arterial Blood Glucose 99 mg/dL (65-95) H 01/12/20 13:58 Arterial Blood Ionized Calcium 4.8 mg/dL (4.6-5.3) 01/12/20 13:58 Urine Color Cecy (Yellow) 12/31/19 18:04 Urine Turbidity Clear (Clear) 12/31/19 18:04 Urine pH 5.0 (5.0-7.0) 12/31/19 18:04 Ur Specific [place] 1.023 (1.003-1.030) 12/31/19 18:04 Urine Protein <15 mg/dl mg/dL (Negative) 12/31/19 18:04 Urine Glucose (UA) Neg mg/dL (Negative) 12/31/19 18:04 Urine Ketones Neg mg/dL (Negative) 12/31/19 18:04 Urine Blood Neg (Negative) 12/31/19 18:04 Urine Bacteria (Auto) 1+ /HPF (Negative) 12/03/19 06:03 Urine Nitrite Neg (Negative) 12/31/19 18:04 Urine Bilirubin Neg (Negative) 12/31/19 18:04 Urine Urobilinogen 4.0 mg/dL (<2.0) 12/31/19 18:04 Ur Leukocyte Esterase Neg (Negative) 12/31/19 18:04 Urine WBC (Auto) 2.0 /HPF (0.0-6.0) 12/31/19 18:04 Urine RBC (Auto) 3.0 /HPF (0.0-6.0) 12/31/19 18:04 U Epithel Cells (Auto) 2.0 /HPF (0-13.0) 12/31/19 18:04 Urine Mucus 1+ /HPF 12/31/19 18:04 Vancomycin Trough 14.2 ug/mL (5.0-20.0) 12/13/19 15:01 Coronavirus (PCR) Negative (Negative) 12/29/19 10:07 Blood Type O POSITIVE 01/21/20 13:00 Antibody Screen Negative 01/21/20 13:00 - Diagnostic Impressions Diagnostic Impressions: Echocardiogram 11/29/19 07:37 Transthoracic Echocardiogram Indication: CHF BP: 116/72 HR: 33 Conclusions *The study is technically limited due to poor acoustic windows. *Global left ventricular systolic function is normal. *The estimated ejection fraction is 50-55%. *Mild concentric left ventricular hypertrophy is observed. *There is trace of mitral regurgitation. *There is mild tricuspid regurgitation. Findings Procedure Info: The study quality is poor. The study is technically limited due to poor acoustic windows. The study is technically limited due to patient body habitus. Left Ventricle: The left ventricular chamber size is normal. Mild concentric left ventricular hypertrophy is observed. Global left ventricular systolic function is normal. The estimated ejection fraction is 50-55%. Left Atrium: The left atrial chamber size is normal. Right Ventricle: The right ventricular cavity size is normal. Right Atrium: The right atrial cavity size is normal. Aortic Valve: The aortic valve leaflets are moderately thickened. There is trace of aortic regurgitation. There is no evidence of aortic stenosis. Mitral Valve: The mitral valve leaflets are mildly thickened. There is trace of mitral regurgitation. There is no evidence of mitral stenosis. Tricuspid Valve: There is mild tricuspid regurgitation. No pulmonary hypertension is noted. Pulmonic Valve: There is trace pulmonic regurgitation. Pericardium: There is no pericardial effusion. Aorta: There is no dilatation of the aortic root. Venous: The inferior vena cava appears normal in size. Contrast: Definity was used to optimize study. Intravenous contrast was used to enhance endocardial border definition. Measurements Chambers 2D Name Value Normal Range Ao root diameter (2D) 3.4 cm (2 - 3.7) Aortic Valve Name Value Normal Range AV Vmax 0.98 m/sec - AV VTI 16.76 cm - AV peak gradient 3.83 mmHg - AV mean gradient 2.57 mmHg - LVOT diameter 3.11 cm - LVOT Vmax 0.68 m/sec - LVOT VTI 11.52 cm - LVOT peak gradient 1.84 mmHg - LVOT mean gradient 1.27 mmHg - SV LVOT 87.31 ml - MALOU (continuity Vmax) 5.24 cm2 - MALOU (continuity VTI) 5.21 cm2 - Tricuspid Valve Name Value Normal Range IVC diameter 2.24 cm (1.2 - 2.3) Hoffman/IV: Voiding Method Condom Catheter IV Catheter Type [Right INT / Saline Lock Forearm] IV Catheter Type [Right Hand] Peripheral IV IV Catheter Type [Right Upper INT / Saline Lock arm] IV Catheter Type [Left Upper Mid-line arm] IV Catheter Type [Left Forearm INT / Saline Lock ] IV Catheter Type [Left Hand] INT / Saline Lock IV Catheter Type [Left Wrist] INT / Saline Lock IV Catheter Type [Right Peripheral IV Antecubital] Active Medications - Current Medications Current Medications: Generic Name Dose Route Start Last Admin Trade Name Freq PRN Reason Stop Dose Admin Acetaminophen 650 mg 12/31/19 11:43 01/14/20 08:27 Tylenol FEEDTUBE 650 mg Q6H PRN Administration Pain, Mild (1-3) Amiodarone HCl 200 mg 01/21/20 06:00 01/23/20 10:42 Cordarone PO 200 mg QDAY CAR Administration Lipase/Protease/Amylase 1 each 01/09/20 12:01 Pancreaztao Betancourt 10,500 Unit FEEDTUBE PRN PRN For Clogged Feeding Tube Apixaban 5 mg 01/22/20 22:00 01/23/20 10:42 Eliquis PO 5 mg Q12HR CAR Administration Protocol Atorvastatin Calcium 40 mg 01/20/20 22:00 01/22/20 21:42 Lipitor PO 40 mg QHS CAR Administration Bisacodyl 10 mg 01/06/20 13:00 01/23/20 10:42 Dulcolax MS 10 mg DAILY CAR Administration Clopidogrel Bisulfate 75 mg 01/21/20 06:00 01/23/20 10:42 Plavix PO 75 mg QDAY CAR Administration Docusate Sodium 100 mg 12/02/19 22:00 01/23/20 10:42 Colace FEEDTUBE 100 mg BID CAR Administration Famotidine 20 mg 01/12/20 10:00 01/23/20 10:41 Pepcid PO 20 mg BID CAR Administration Furosemide 20 mg 01/20/20 06:00 01/23/20 06:01 Lasix IV 20 mg 0600,1800 CAR Administration Glycopyrrolate 2 mg 01/12/20 22:00 01/23/20 10:42 Glycopyrrolate PO 2 mg BID CAR Administration Haloperidol Lactate 5 mg 12/25/19 10:00 01/22/20 11:35 Haldol IV 5 mg Q6H PRN Administration Unrespon. to mult. doses BZD's Hydrophilic Ointment 1 applic 01/17/20 15:26 Vaseline Lip Therapy TP DIRECT PRN Dry Lips Lorazepam 2 mg 12/25/19 10:00 01/21/20 11:00 Ativan IV 2 mg Q6H PRN Administration AGITATION Magnesium Hydroxide 30 ml 01/14/20 13:35 01/22/20 11:32 Milk Of Magnesia PO 30 ml QDAY PRN Administration Constip unreliev by MOM/or NPO Metoprolol Tartrate 5 mg 10/19/20 08:00 01/22/20 02:10 Metoprolol IV 5 mg Q6H PRN Administration SEE INSTRUCTIONS Metoprolol Tartrate 25 mg 01/11/20 13:00 01/23/20 06:02 Metoprolol PO 25 mg Q6H CAR Administration Morphine Sulfate 2 mg 01/06/20 15:41 01/23/20 03:39 Morphine IV 2 mg Q4H PRN Administration Pain, Moderate (4-6) Nitroglycerin 0.4 mg 01/19/20 21:09 01/20/20 03:03 Nitrostat SL 0.4 mg .Q5MIN PRN Administration Chest Pain Nitroglycerin 0.4 mg 01/21/20 06:00 01/23/20 06:01 Nitro Dur TD 0.4 mg QDAY@0600 CAR Administration Ondansetron HCl 4 mg 01/05/20 14:37 01/22/20 04:23 Zofran IV 4 mg Q8H PRN Administration Nausea And Vomiting Polyethylene Glycol 17 gm 12/04/19 22:00 01/22/20 21:42 Miralax 3350 PO 17 gm QHS CAR Administration Quetiapine Fumarate 300 mg 01/13/20 22:00 01/23/20 10:42 Seroquel PO 300 mg BID CAR Administration Scopolamine 1 each 01/07/20 20:00 01/07/20 21:08 Transderm-Scop TD 1 each Q72HR CAR Administration Simple Syrup 15 ml 01/09/20 12:01 Simple Syrup FEEDTUBE PRN PRN Hypoglycemia Simple Syrup 30 ml 01/09/20 12:01 Simple Syrup FEEDTUBE PRN PRN Hypoglycemia Sodium Bicarbonate 325 mg 01/09/20 12:01 Sodium Bicarbonate FEEDTUBE PRN PRN For Clogged Feeding Tube Sodium Chloride 10 ml 11/24/19 10:00 01/23/20 10:43 Sodium Chloride Flush Syringe 10 Ml IV 10 ml BID CAR Administration Tamsulosin HCl 0.8 mg 12/20/19 22:00 01/22/20 21:42 Flomax PO 0.8 mg QHS CAR Administration Nutrition/Malnutrition Assess - Dietary Evaluation Nutrition/Malnutrition Findings: Nutrition Notes Start: 11/24/19 12:22 Freq: Status: Active Protocol: Document 01/22/20 11:28 HEATHER (Rec: 01/22/20 11:43 HEATHER [id number]) Co-Sign 01/22/20 11:28 LP Nutrition Notes Initial or Follow up Reassessment Current Diagnosis Coronary Artery Disease,Heart Failure,Respiratory Failure, Stroke,Hyperlipidemia Other Pertinent Diagnosis Partial SBO, pneu Current Diet NPO Labs/Tests No new labs Pertinent Medications Lasix (not given) Height 6 ft 2 in Weight 116 kg [place] Body Weight (kg) 86.36 BMI 32.8 Weight Status Overweight Subjective/Other Information F/u POC. Respiratory therapist visited today. Pt alert but remains on mechanical ventilation through trach. Noted emesis from RN note. Per RN, pt has gag reflex when he needs more suctioning. TF is being tolerated. RN okay with restarting TF at 70ml/hr. 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 Yes Is Patient Ambulatory and/or Out of Bed No REE-([facility]-confined to bed) 2434.356 Kcal/Kg value to use for calculation 16 Approximate Energy Requirements Using 1856 kcal/Kg Calculation Used for Recommendations Kcal/kg Additional Notes Protein needs are up to 162g ( 2g/kg IBW) Fluid needs are 1.5L [ End ] Nutrition Intervention Change Diet Order: Continue TF Nutrition Support: Vital HP at 70ml/hr (goal rate ) Flush 50ml q4h or per MD Kcal 1,680 Protein (gm) 105 Fluid (mL) 1,409 Goal #1 Meet at least 75% of pt's energy and protein needs Anticipated Discharge Needs: unable to determine Follow-Up By: 01/26/20 Additional Comments F/u stable TF and wt
--- NOTE | 2020-01-23 11:15 | Progress Note ---
Assessment and Plan 1. Paroxysmal atrial fibrillation 2. Coronary artery disease status post PCI and stent to the LAD 3. Ischemic cardiomyopathy left ventricular ejection fraction 40 to 45% 4. Chronic respiratory failure status post tracheostomy 5. Chronic obstructive pulmonary disease 6. Essential hypertension Recent cardiac catheterization has documented widely patent left anterior descending artery stent with minimal nonobstructive diffuse coronary artery disease in the rest of the coronary arteries. Evidence of ischemic cardiomyopathy with inferior wall hypokinesis. Plan. Continue with guideline directed medical therapy. Subjective Date of service: 01/23/20 Principal diagnosis: Ac hypoxemic resp failure; Pneumonia; PUI COVID-19; CHF; COPD; HTN Interval history: No cardiac symptoms. Objective Vital Signs Temp Pulse Pulse Resp BP Pulse Ox Pulse Ox 01/23/20 09:00 88 24 121/78 83 L 01/23/20 08:00 98.1 F 88 16 142/86 100 100 01/23/20 07:00 90 25 H 125/86 01/23/20 06:02 91 H 120/85 01/23/20 06:01 91 H 120/85 01/23/20 06:00 91 H 21 120/85 91 01/23/20 05:01 99 01/23/20 05:00 91 H 19 122/80 99 01/23/20 04:15 97.6 F 01/23/20 04:00 92 H 22 137/82 99 01/23/20 03:01 94 H 26 H 136/85 99 01/23/20 02:00 91 H 17 120/79 98 01/23/20 01:00 89 20 117/71 100 01/23/20 00:46 88 118/69 01/23/20 00:00 90 21 118/77 99 01/22/20 23:44 97.8 F 91 H 112/73 99 01/22/20 23:11 91 H 20 128/78 99 01/22/20 23:00 89 17 112/73 99 01/22/20 22:00 92 H 19 128/78 99 01/22/20 21:00 94 H 21 122/78 100 01/22/20 20:32 98 01/22/20 20:31 98 01/22/20 20:23 89 122/74 98 01/22/20 20:00 97.6 F 89 17 122/74 01/22/20 19:00 89 17 121/75 99 01/22/20 18:14 88 122/77 01/22/20 18:00 91 H 20 122/77 100 01/22/20 17:45 90 25 H 120/75 99 01/22/20 17:31 89 20 120/75 100 01/22/20 17:15 88 16 120/75 100 01/22/20 17:00 88 18 120/75 96 01/22/20 16:45 88 27 H 118/70 97 01/22/20 16:31 85 17 118/70 100 01/22/20 16:16 15 01/22/20 16:15 90 25 H 118/70 01/22/20 16:01 87 24 118/70 99 01/22/20 16:00 97.5 F L 90 86 23 118/70 98 01/22/20 15:45 86 26 H 112/63 97 01/22/20 15:31 78 23 112/63 97 01/22/20 15:15 71 19 112/63 96 01/22/20 15:00 70 21 112/63 97 01/22/20 14:45 73 21 118/75 97 01/22/20 14:31 78 19 118/75 96 01/22/20 14:15 84 20 118/75 98 01/22/20 14:00 84 21 118/75 100 01/22/20 13:45 82 18 112/74 100 01/22/20 13:33 76 112/74 01/22/20 13:31 76 21 112/74 100 01/22/20 13:15 97 H 21 112/74 100 01/22/20 13:00 105 H 21 112/74 100 01/22/20 12:45 101 H 21 128/84 100 01/22/20 12:31 113 H 21 145/77 99 01/22/20 12:15 117 H 19 145/77 99 01/22/20 12:13 107 H 145/77 98 01/22/20 12:00 97.9 F 92 H 125 H 26 H 145/77 98 01/22/20 11:45 95 H 29 H 150/100 97 01/22/20 11:31 102 H 31 H 150/100 100 01/22/20 11:15 108 H 35 H 150/100 89 - Physical Examination General: Other (awake, s/p trach) HEENT: Positive: PERRL Neck: Positive: neck supple. Negative: JVD/HJR Cardiac: Positive: Regular Rate, S1/S2, PMI, Laterally Displaced. Negative: S3, S4 Lungs: Positive: Normal Breath Sounds, No Wheeze, Rales, Rhonchi Neuro: Positive: Weakness, Other (Sedated, on the vent via trach) Abdomen: Positive: Soft Skin: Positive: Clear Extremities: Absent: edema - Labs and Meds Comprehensive Metabolic Panel 01/22/20 Range/Units 08:09 Sodium 139 (137-145) mmol/L Potassium 4.3 (3.6-5.0) mmol/L Chloride 97.8 L (98-107) mmol/L Carbon Dioxide 29 (22-30) mmol/L BUN 29 H (9-20) mg/dL Creatinine 1.0 (0.8-1.3) mg/dL Glucose 128 H (75-100) mg/dL Calcium 9.1 (8.4-10.2) mg/dL - Allied health notes Allied health notes reviewed: nursing
--- NOTE | 2020-01-23 11:34 | Progress Note ---
Assessment and Plan Acute hypoxemic respiratory failure s/p trach on MVS Bilateral pneumonia, community acquired. Acute congestive heart failure exacerbation. History of cerebrovascular accident. Acute chronic obstructive pulmonary disease exacerbation. Hypertension and hypertensive urgency at presentation. History of arthritis. Oropharyngeal dysphagia Right Lext DVT Pulmonary embolism SBT, ATP trials today Trach care, airway clearance, secretion management Bowel regimen Replete potassium, keep at 4, magnesium at 2 and Phos at 2.5 Continue with Furosemide while montoring renal function, electrolyte profile and hemodynamics On Apixaban Monitor closely CXR, ABG as clinically indicated Continue accuchecks with glycemic control per SSI for target blood glucose goal of 140-180 mg/dL while critically ill; Avoid hypoglycemia - continue to monitor renal function, hemodynamics and electrolyte profile - continue to wean oxygen for O2 sats > 90% - continue bronchodilators with pulmonary hygiene per RT - VAP bundle addressed (Aspiration precautions, HOB >40) - continue to wean per pulmonary driven protocols - continue prn analgesia per CPOT score - follow clinically re: fever curves / trend WBC - Avoid delirium (no benzodiazepines if they can be avoided) - continue stress ulcer prophylaxis with Famotidine BID - continue mobility protocols for pressure ulcer prophylaxis - continue fall precautions - Supportive transfusions as indicated to keep HgB>7g/dL - Continue to monitor neurologic function - Continue chronic home medications as clinically indicated - Continue all supportive care CONDITION: CRITICAL PROGNOSIS: GUARDED CODE STATUS: FULL CODE The high probability of a clinically significant, sudden or life threatening d eterioration of the [Respiratory, cardiovascular, GI & neurological] system(s) required my full and direct attention, intervention and personal management. The aggregate critical care time was [32] minutes without overlap. Time includes spent on [x] Data Review and interpretation [x] Patient assessment and monitoring of vital signs [x] Documentation [x] Medication orders and management Subjective Date of service: 01/23/20 Principal diagnosis: Ac hypoxemic resp failure; Pneumonia; PUI COVID-19; CHF; COPD; HTN Interval history: Patient is seen today for: Acute hypoxemic respiratory failure; Adan. Pneumonia (CAP); PUI COVID-19 infection; AE-CHF; AE-COPD; H/O CVA; HTN; PE, DVT Seen and examined at bedside; 24 hour events reviewed; nursing and respiratory care staff consulted; no adverse overnight events reported to me; resting peacefully in bed; s/p trach on full support, awake and alert , complains of constipation, tolerating tube feedings. Vent AC-VC 12/450/+6/30% No fevers, anticoagulated on Apixaban Normal coronaries of cardiac cath Objective Vital Signs - 12hr 01/22/20 01/23/20 01/23/20 23:44 00:00 00:46 Temperature 97.8 F Pulse Rate 91 H 90 88 Respiratory 21 Rate Blood Pressure 112/73 118/77 118/69 O2 Sat by Pulse 99 99 Oximetry O2 Sat by Pulse Oximetry [ Assessment] 01/23/20 01/23/20 01/23/20 01:00 02:00 03:01 Temperature Pulse Rate 89 91 H 94 H Respiratory 20 17 26 H Rate Blood Pressure 117/71 120/79 136/85 O2 Sat by Pulse 100 98 99 Oximetry O2 Sat by Pulse Oximetry [ Assessment] 01/23/20 01/23/20 01/23/20 04:00 04:15 05:00 Temperature 97.6 F Pulse Rate 92 H 91 H Respiratory 22 19 Rate Blood Pressure 137/82 122/80 O2 Sat by Pulse 99 99 Oximetry O2 Sat by Pulse Oximetry [ Assessment] 01/23/20 01/23/20 01/23/20 05:01 06:00 06:01 Temperature Pulse Rate 91 H 91 H Respiratory 21 Rate Blood Pressure 120/85 120/85 O2 Sat by Pulse 91 Oximetry O2 Sat by Pulse 99 Oximetry [ Assessment] 01/23/20 01/23/20 01/23/20 06:02 07:00 08:00 Temperature 98.1 F Pulse Rate 91 H 90 88 Respiratory 25 H 16 Rate Blood Pressure 120/85 125/86 142/86 O2 Sat by Pulse 100 Oximetry O2 Sat by Pulse 100 Oximetry [ Assessment] 01/23/20 09:00 Temperature Pulse Rate 88 Respiratory 24 Rate Blood Pressure 121/78 O2 Sat by Pulse 83 L Oximetry O2 Sat by Pulse Oximetry [ Assessment] Constitutional: no acute distress, other (elelelderly and obese male, normocephalic with mildly increased respiratory effort at rest on MVS) Eyes: non-icteric ENT: other (trach to MVS, mooderate tracheal secretions) Neck: supple, no JVD Effort: mildly labored Ascultation: Bilateral: clear, diminished breath sounds, rhonchi, other (+ secretions) Percussion: Bilateral: not dull Cardiovascular: irregular rhythm, other (S1,S2) Gastrointestinal: normoactive bowel sounds, soft, non-tender, non-distended (protuberant), other (protuberant; PEG in place) Integumentary: normal Extremities: no cyanosis, pulses normal, no ischemia or petechiae, edema (bilateral upper ) Neurologic: normal mental status, non-focal exam (moves extremities), pupils equal and round Psychiatric: mood appropriate, affect normal CBC and BMP: 01/24/20 04:30 01/24/20 04:30 ABG, PT/INR, D-dimer: ABG ABG pH 7.449 pH Units (7.350-7.450) 01/13/20 20:40 POC ABG pCO2 45.6 mmHg (32.0-48.0) 01/12/20 13:58 ABG pCO2 46.9 mm Hg 01/13/20 20:40 POC ABG pO2 76.6 mmHg (83-108) L 01/12/20 13:58 ABG pO2 65.3 mm Hg (80.0-90.0) L 01/13/20 20:40 POC ABG HCO3 31.2 01/12/20 13:58 ABG O2 Saturation 93.5 % (95.0-99.0) L 01/13/20 20:40 PT/INR, D-dimer PT 16.9 Sec. (12.2-14.9) H 01/22/20 09:58 INR 1.34 (0.87-1.13) H 01/22/20 09:58 Abnormal lab findings: Abnormal Labs 11/24/19 11/24/19 11/24/19 02:53 02:53 03:45 WBC 14.3 H RBC Hgb Hct MCHC RDW 17.2 H MCV MCH Lymph % (Auto) Floyd % (Auto) Floyd # Eos # Lymph # (Auto) Floyd # (Auto) Eos # (Auto) Seg Neutrophils % Seg Neuts % (Manual) Baso # (Auto) Lymphocytes % (Manual) Monocytes % (Manual) Eosinophils % (Manual) Basophils % (Manual) Seg Neutrophils # Seg Neutrophils # Man 8.3 H Lymphocytes # (Manual) Monocytes # (Manual) 0.9 H Eosinophils # (Manual) Nucleated RBC % Basophils # (Manual) PT INR APTT Heparin Anti-Xa Level ABG pH 7.313 L POC ABG pO2 ABG pO2 102.8 H ABG HCO3 ABG O2 Saturation ABG Base Excess -2.9 L POC ABG pCO2 ABG Hemoglobin ABG Oxyhemoglobin ABG Glucose Oxyhemoglobin 93.9 L Sodium Potassium Chloride Carbon Dioxide BUN Creatinine Glucose 195 H POC Glucose Lactic Acid Calcium Phosphorus Magnesium AST ALT Lactate Dehydrogenase CK-MB (CK-2) 4.3 H C-Reactive Protein NT-Pro-B Natriuret Pep 1181 H Total Protein Albumin Arterial Blood Glucose Urine WBC (Auto) 11/24/19 11/24/19 11/24/19 04:53 04:53 10:37 WBC RBC Hgb Hct MCHC RDW MCV MCH Lymph % (Auto) Floyd % (Auto) Floyd # Eos # Lymph # (Auto) Floyd # (Auto) Eos # (Auto) Seg Neutrophils % Seg Neuts % (Manual) Baso # (Auto) Lymphocytes % (Manual) Monocytes % (Manual) Eosinophils % (Manual) Basophils % (Manual) Seg Neutrophils # Seg Neutrophils # Man Lymphocytes # (Manual) Monocytes # (Manual) Eosinophils # (Manual) Nucleated RBC % Basophils # (Manual) PT INR APTT Heparin Anti-Xa Level ABG pH POC ABG pO2 ABG pO2 ABG HCO3 ABG O2 Saturation ABG Base Excess POC ABG pCO2 ABG Hemoglobin ABG Oxyhemoglobin ABG Glucose Oxyhemoglobin Sodium Potassium Chloride Carbon Dioxide BUN Creatinine Glucose 162 H POC Glucose Lactic Acid 2.40 H* 2.50 H* Calcium Phosphorus Magnesium AST ALT Lactate Dehydrogenase 240 H CK-MB (CK-2) C-Reactive Protein NT-Pro-B Natriuret Pep Total Protein Albumin Arterial Blood Glucose Urine WBC (Auto) 11/24/19 11/24/19 11/24/19 12:21 14:50 19:54 WBC RBC Hgb Hct MCHC RDW MCV MCH Lymph % (Auto) Floyd % (Auto) Floyd # Eos # Lymph # (Auto) Floyd # (Auto) Eos # (Auto) Seg Neutrophils % Seg Neuts % (Manual) Baso # (Auto) Lymphocytes % (Manual) Monocytes % (Manual) Eosinophils % (Manual) Basophils % (Manual) Seg Neutrophils # Seg Neutrophils # Man Lymphocytes # (Manual) Monocytes # (Manual) Eosinophils # (Manual) Nucleated RBC % Basophils # (Manual) PT INR APTT Heparin Anti-Xa Level ABG pH POC ABG pO2 ABG pO2 ABG HCO3 ABG O2 Saturation ABG Base Excess POC ABG pCO2 ABG Hemoglobin ABG Oxyhemoglobin ABG Glucose Oxyhemoglobin Sodium Potassium Chloride Carbon Dioxide BUN Creatinine Glucose POC Glucose 145 H 143 H 124 H Lactic Acid Calcium Phosphorus Magnesium AST ALT Lactate Dehydrogenase CK-MB (CK-2) C-Reactive Protein NT-Pro-B Natriuret Pep Total Protein Albumin Arterial Blood Glucose Urine WBC (Auto) 11/25/19 11/25/19 11/25/19 00:18 03:18 05:11 WBC 13.7 H RBC Hgb Hct MCHC RDW 17.1 H MCV MCH Lymph % (Auto) 10.8 L Floyd % (Auto) 8.7 H Floyd # 1.2 H Eos # Lymph # (Auto) Floyd # (Auto) Eos # (Auto) Seg Neutrophils % 80.2 H Seg Neuts % (Manual) Baso # (Auto) Lymphocytes % (Manual) Monocytes % (Manual) Eosinophils % (Manual) Basophils % (Manual) Seg Neutrophils # 11.0 H Seg Neutrophils # Man Lymphocytes # (Manual) Monocytes # (Manual) Eosinophils # (Manual) Nucleated RBC % Basophils # (Manual) PT INR APTT Heparin Anti-Xa Level ABG pH 7.333 L POC ABG pO2 ABG pO2 61.2 L ABG HCO3 ABG O2 Saturation 90.2 L ABG Base Excess POC ABG pCO2 ABG Hemoglobin 13.7 L ABG Oxyhemoglobin ABG Glucose Oxyhemoglobin 88.2 L Sodium Potassium Chloride Carbon Dioxide BUN Creatinine Glucose POC Glucose 109 H Lactic Acid Calcium Phosphorus Magnesium AST ALT Lactate Dehydrogenase CK-MB (CK-2) C-Reactive Protein NT-Pro-B Natriuret Pep Total Protein Albumin Arterial Blood Glucose Urine WBC (Auto) 11/25/19 11/25/19 11/26/19 05:11 11:40 03:12 WBC RBC Hgb Hct MCHC RDW MCV MCH Lymph % (Auto) Floyd % (Auto) Floyd # Eos # Lymph # (Auto) Floyd # (Auto) Eos # (Auto) Seg Neutrophils % Seg Neuts % (Manual) Baso # (Auto) Lymphocytes % (Manual) Monocytes % (Manual) Eosinophils % (Manual) Basophils % (Manual) Seg Neutrophils # Seg Neutrophils # Man Lymphocytes # (Manual) Monocytes # (Manual) Eosinophils # (Manual) Nucleated RBC % Basophils # (Manual) PT INR APTT Heparin Anti-Xa Level ABG pH POC ABG pO2 ABG pO2 155.1 H ABG HCO3 27.8 H ABG O2 Saturation ABG Base Excess POC ABG pCO2 ABG Hemoglobin 12.2 L ABG Oxyhemoglobin ABG Glucose Oxyhemoglobin Sodium Potassium Chloride Carbon Dioxide BUN 23 H Creatinine Glucose 110 H POC Glucose 108 H Lactic Acid Calcium Phosphorus Magnesium AST ALT Lactate Dehydrogenase CK-MB (CK-2) C-Reactive Protein NT-Pro-B Natriuret Pep Total Protein Albumin Arterial Blood Glucose Urine WBC (Auto) 11/26/19 11/26/19 11/26/19 06:17 10:43 10:43 WBC 11.4 H RBC Hgb Hct MCHC RDW 17.1 H MCV MCH Lymph % (Auto) Floyd % (Auto) Floyd # Eos # Lymph # (Auto) Floyd # (Auto) Eos # (Auto) Seg Neutrophils % Seg Neuts % (Manual) Baso # (Auto) Lymphocytes % (Manual) Monocytes % (Manual) Eosinophils % (Manual) Basophils % (Manual) Seg Neutrophils # Seg Neutrophils # Man Lymphocytes # (Manual) Monocytes # (Manual) Eosinophils # (Manual) Nucleated RBC % Basophils # (Manual) PT INR APTT Heparin Anti-Xa Level ABG pH POC ABG pO2 ABG pO2 ABG HCO3 ABG O2 Saturation ABG Base Excess POC ABG pCO2 ABG Hemoglobin ABG Oxyhemoglobin ABG Glucose Oxyhemoglobin Sodium Potassium Chloride Carbon Dioxide BUN 29 H Creatinine Glucose POC Glucose 107 H Lactic Acid Calcium Phosphorus Magnesium AST ALT Lactate Dehydrogenase CK-MB (CK-2) C-Reactive Protein NT-Pro-B Natriuret Pep Total Protein Albumin Arterial Blood Glucose Urine WBC (Auto) 11/26/19 11/27/19 11/27/19 17:11 01:53 04:11 WBC RBC Hgb Hct MCHC RDW MCV MCH Lymph % (Auto) Floyd % (Auto) Floyd # Eos # Lymph # (Auto) Floyd # (Auto) Eos # (Auto) Seg Neutrophils % Seg Neuts % (Manual) Baso # (Auto) Lymphocytes % (Manual) Monocytes % (Manual) Eosinophils % (Manual) Basophils % (Manual) Seg Neutrophils # Seg Neutrophils # Man Lymphocytes # (Manual) Monocytes # (Manual) Eosinophils # (Manual) Nucleated RBC % Basophils # (Manual) PT INR APTT Heparin Anti-Xa Level ABG pH POC ABG pO2 ABG pO2 ABG HCO3 29.2 H ABG O2 Saturation ABG Base Excess 3.4 H POC ABG pCO2 ABG Hemoglobin 13.3 L ABG Oxyhemoglobin ABG Glucose Oxyhemoglobin 94.5 L Sodium Potassium Chloride Carbon Dioxide BUN Creatinine Glucose POC Glucose 113 H 108 H Lactic Acid Calcium Phosphorus Magnesium AST ALT Lactate Dehydrogenase CK-MB (CK-2) C-Reactive Protein NT-Pro-B Natriuret Pep Total Protein Albumin Arterial Blood Glucose Urine WBC (Auto) 11/27/19 11/28/19 11/28/19 05:27 05:00 05:25 WBC RBC Hgb Hct MCHC RDW MCV MCH Lymph % (Auto) Floyd % (Auto) Floyd # Eos # Lymph # (Auto) Floyd # (Auto) Eos # (Auto) Seg Neutrophils % Seg Neuts % (Manual) Baso # (Auto) Lymphocytes % (Manual) Monocytes % (Manual) Eosinophils % (Manual) Basophils % (Manual) Seg Neutrophils # Seg Neutrophils # Man Lymphocytes # (Manual) Monocytes # (Manual) Eosinophils # (Manual) Nucleated RBC % Basophils # (Manual) PT INR APTT Heparin Anti-Xa Level ABG pH POC ABG pO2 68.1 L ABG pO2 ABG HCO3 ABG O2 Saturation ABG Base Excess POC ABG pCO2 ABG Hemoglobin ABG Oxyhemoglobin 91.2 L ABG Glucose Oxyhemoglobin Sodium Potassium Chloride Carbon Dioxide BUN Creatinine Glucose POC Glucose 111 H 110 H Lactic Acid Calcium Phosphorus Magnesium AST ALT Lactate Dehydrogenase CK-MB (CK-2) C-Reactive Protein NT-Pro-B Natriuret Pep Total Protein Albumin Arterial Blood Glucose Urine WBC (Auto) 11/28/19 11/28/19 11/28/19 12:08 13:47 13:47 WBC 11.3 H RBC Hgb Hct MCHC RDW 16.1 H MCV MCH Lymph % (Auto) Floyd % (Auto) 9.9 H Floyd # 1.1 H Eos # Lymph # (Auto) Floyd # (Auto) Eos # (Auto) Seg Neutrophils % 71.4 H Seg Neuts % (Manual) Baso # (Auto) Lymphocytes % (Manual) Monocytes % (Manual) Eosinophils % (Manual) Basophils % (Manual) Seg Neutrophils # 8.1 H Seg Neutrophils # Man Lymphocytes # (Manual) Monocytes # (Manual) Eosinophils # (Manual) Nucleated RBC % Basophils # (Manual) PT INR APTT Heparin Anti-Xa Level ABG pH POC ABG pO2 ABG pO2 ABG HCO3 ABG O2 Saturation ABG Base Excess POC ABG pCO2 ABG Hemoglobin ABG Oxyhemoglobin ABG Glucose Oxyhemoglobin Sodium Potassium Chloride Carbon Dioxide BUN 23 H Creatinine Glucose 123 H POC Glucose 112 H Lactic Acid Calcium Phosphorus Magnesium AST ALT Lactate Dehydrogenase CK-MB (CK-2) C-Reactive Protein NT-Pro-B Natriuret Pep Total Protein Albumin 3.7 L Arterial Blood Glucose Urine WBC (Auto) 11/28/19 11/29/19 11/29/19 17:26 03:55 17:04 WBC RBC Hgb Hct MCHC RDW MCV MCH Lymph % (Auto) Floyd % (Auto) Floyd # Eos # Lymph # (Auto) Floyd # (Auto) Eos # (Auto) Seg Neutrophils % Seg Neuts % (Manual) Baso # (Auto) Lymphocytes % (Manual) Monocytes % (Manual) Eosinophils % (Manual) Basophils % (Manual) Seg Neutrophils # Seg Neutrophils # Man Lymphocytes # (Manual) Monocytes # (Manual) Eosinophils # (Manual) Nucleated RBC % Basophils # (Manual) PT INR APTT Heparin Anti-Xa Level ABG pH POC ABG pO2 ABG pO2 65.7 L ABG HCO3 28.3 H ABG O2 Saturation 93.9 L ABG Base Excess 3.6 H POC ABG pCO2 ABG Hemoglobin 13.3 L ABG Oxyhemoglobin ABG Glucose Oxyhemoglobin 91.5 L Sodium Potassium Chloride Carbon Dioxide BUN Creatinine Glucose POC Glucose 123 H 119 H Lactic Acid Calcium Phosphorus Magnesium AST ALT Lactate Dehydrogenase CK-MB (CK-2) C-Reactive Protein NT-Pro-B Natriuret Pep Total Protein Albumin Arterial Blood Glucose Urine WBC (Auto) 11/30/19 11/30/19 11/30/19 04:17 04:17 04:56 WBC 13.4 H RBC Hgb Hct MCHC RDW 15.6 H MCV MCH Lymph % (Auto) Floyd % (Auto) Floyd # Eos # Lymph # (Auto) Floyd # (Auto) Eos # (Auto) Seg Neutrophils % Seg Neuts % (Manual) Baso # (Auto) Lymphocytes % (Manual) Monocytes % (Manual) Eosinophils % (Manual) Basophils % (Manual) Seg Neutrophils # Seg Neutrophils # Man Lymphocytes # (Manual) Monocytes # (Manual) Eosinophils # (Manual) Nucleated RBC % Basophils # (Manual) PT INR APTT Heparin Anti-Xa Level ABG pH POC ABG pO2 ABG pO2 56.3 L ABG HCO3 29.3 H ABG O2 Saturation 91.5 L ABG Base Excess 4.7 H POC ABG pCO2 ABG Hemoglobin 12.1 L ABG Oxyhemoglobin ABG Glucose Oxyhemoglobin 89.2 L Sodium 147 H Potassium Chloride Carbon Dioxide BUN 30 H Creatinine Glucose 124 H POC Glucose Lactic Acid Calcium Phosphorus Magnesium AST ALT Lactate Dehydrogenase CK-MB (CK-2) C-Reactive Protein NT-Pro-B Natriuret Pep Total Protein Albumin 3.8 L Arterial Blood Glucose Urine WBC (Auto) 11/30/19 11/30/19 11/30/19 05:51 11:54 18:17 WBC RBC Hgb Hct MCHC RDW MCV MCH Lymph % (Auto) Floyd % (Auto) Floyd # Eos # Lymph # (Auto) Floyd # (Auto) Eos # (Auto) Seg Neutrophils % Seg Neuts % (Manual) Baso # (Auto) Lymphocytes % (Manual) Monocytes % (Manual) Eosinophils % (Manual) Basophils % (Manual) Seg Neutrophils # Seg Neutrophils # Man Lymphocytes # (Manual) Monocytes # (Manual) Eosinophils # (Manual) Nucleated RBC % Basophils # (Manual) PT INR APTT Heparin Anti-Xa Level ABG pH POC ABG pO2 ABG pO2 ABG HCO3 ABG O2 Saturation ABG Base Excess POC ABG pCO2 ABG Hemoglobin ABG Oxyhemoglobin ABG Glucose Oxyhemoglobin Sodium Potassium Chloride Carbon Dioxide BUN Creatinine Glucose POC Glucose 127 H 115 H 143 H Lactic Acid Calcium Phosphorus Magnesium AST ALT Lactate Dehydrogenase CK-MB (CK-2) C-Reactive Protein NT-Pro-B Natriuret Pep Total Protein Albumin Arterial Blood Glucose Urine WBC (Auto) 12/01/19 12/01/19 12/01/19 01:18 05:22 12:16 WBC RBC Hgb Hct MCHC RDW MCV MCH Lymph % (Auto) Floyd % (Auto) Floyd # Eos # Lymph # (Auto) Floyd # (Auto) Eos # (Auto) Seg Neutrophils % Seg Neuts % (Manual) Baso # (Auto) Lymphocytes % (Manual) Monocytes % (Manual) Eosinophils % (Manual) Basophils % (Manual) Seg Neutrophils # Seg Neutrophils # Man Lymphocytes # (Manual) Monocytes # (Manual) Eosinophils # (Manual) Nucleated RBC % Basophils # (Manual) PT INR APTT Heparin Anti-Xa Level ABG pH POC ABG pO2 ABG pO2 ABG HCO3 ABG O2 Saturation ABG Base Excess POC ABG pCO2 ABG Hemoglobin ABG Oxyhemoglobin ABG Glucose Oxyhemoglobin Sodium Potassium 3.5 L Chloride 107.8 H Carbon Dioxide BUN 37 H Creatinine Glucose 157 H POC Glucose 118 H 148 H Lactic Acid Calcium 8.2 L D Phosphorus Magnesium AST 48 H ALT 60 H Lactate Dehydrogenase 194 H CK-MB (CK-2) C-Reactive Protein 8.50 H NT-Pro-B Natriuret Pep Total Protein 5.5 L Albumin 2.8 L Arterial Blood Glucose Urine WBC (Auto) 12/01/19 12/02/19 12/02/19 18:04 00:05 05:16 WBC 11.4 H RBC Hgb Hct MCHC RDW 15.9 H MCV MCH Lymph % (Auto) Floyd % (Auto) 9.9 H Floyd # 1.1 H Eos # Lymph # (Auto) Floyd # (Auto) Eos # (Auto) Seg Neutrophils % 70.3 H Seg Neuts % (Manual) Baso # (Auto) Lymphocytes % (Manual) Monocytes % (Manual) Eosinophils % (Manual) Basophils % (Manual) Seg Neutrophils # 8.0 H Seg Neutrophils # Man Lymphocytes # (Manual) Monocytes # (Manual) Eosinophils # (Manual) Nucleated RBC % Basophils # (Manual) PT INR APTT Heparin Anti-Xa Level ABG pH POC ABG pO2 ABG pO2 ABG HCO3 ABG O2 Saturation ABG Base Excess POC ABG pCO2 ABG Hemoglobin ABG Oxyhemoglobin ABG Glucose Oxyhemoglobin Sodium Potassium Chloride Carbon Dioxide BUN Creatinine Glucose POC Glucose 143 H 107 H Lactic Acid Calcium Phosphorus Magnesium AST ALT Lactate Dehydrogenase CK-MB (CK-2) C-Reactive Protein NT-Pro-B Natriuret Pep Total Protein Albumin Arterial Blood Glucose Urine WBC (Auto) 12/02/19 12/02/19 12/02/19 05:16 06:03 11:52 WBC RBC Hgb Hct MCHC RDW MCV MCH Lymph % (Auto) Floyd % (Auto) Floyd # Eos # Lymph # (Auto) Floyd # (Auto) Eos # (Auto) Seg Neutrophils % Seg Neuts % (Manual) Baso # (Auto) Lymphocytes % (Manual) Monocytes % (Manual) Eosinophils % (Manual) Basophils % (Manual) Seg Neutrophils # Seg Neutrophils # Man Lymphocytes # (Manual) Monocytes # (Manual) Eosinophils # (Manual) Nucleated RBC % Basophils # (Manual) PT INR APTT Heparin Anti-Xa Level ABG pH POC ABG pO2 ABG pO2 ABG HCO3 ABG O2 Saturation ABG Base Excess POC ABG pCO2 ABG Hemoglobin ABG Oxyhemoglobin ABG Glucose Oxyhemoglobin Sodium 146 H Potassium Chloride Carbon Dioxide BUN 28 H Creatinine Glucose 123 H POC Glucose 110 H 152 H Lactic Acid Calcium Phosphorus Magnesium AST ALT Lactate Dehydrogenase CK-MB (CK-2) C-Reactive Protein NT-Pro-B Natriuret Pep Total Protein Albumin Arterial Blood Glucose Urine WBC (Auto) 12/02/19 12/02/19 12/02/19 12:58 17:58 23:36 WBC RBC Hgb Hct MCHC RDW MCV MCH Lymph % (Auto) Floyd % (Auto) Floyd # Eos # Lymph # (Auto) Floyd # (Auto) Eos # (Auto) Seg Neutrophils % Seg Neuts % (Manual) Baso # (Auto) Lymphocytes % (Manual) Monocytes % (Manual) Eosinophils % (Manual) Basophils % (Manual) Seg Neutrophils # Seg Neutrophils # Man Lymphocytes # (Manual) Monocytes # (Manual) Eosinophils # (Manual) Nucleated RBC % Basophils # (Manual) PT INR APTT Heparin Anti-Xa Level ABG pH POC ABG pO2 78.1 L ABG pO2 ABG HCO3 ABG O2 Saturation ABG Base Excess POC ABG pCO2 ABG Hemoglobin ABG Oxyhemoglobin ABG Glucose Oxyhemoglobin Sodium Potassium Chloride Carbon Dioxide BUN Creatinine Glucose POC Glucose 120 H 123 H Lactic Acid Calcium Phosphorus Magnesium AST ALT Lactate Dehydrogenase CK-MB (CK-2) C-Reactive Protein NT-Pro-B Natriuret Pep Total Protein Albumin Arterial Blood Glucose Urine WBC (Auto) 12/03/19 12/03/19 12/03/19 06:03 06:14 11:46 WBC RBC Hgb Hct MCHC RDW MCV MCH Lymph % (Auto) Floyd % (Auto) Floyd # Eos # Lymph # (Auto) Floyd # (Auto) Eos # (Auto) Seg Neutrophils % Seg Neuts % (Manual) Baso # (Auto) Lymphocytes % (Manual) Monocytes % (Manual) Eosinophils % (Manual) Basophils % (Manual) Seg Neutrophils # Seg Neutrophils # Man Lymphocytes # (Manual) Monocytes # (Manual) Eosinophils # (Manual) Nucleated RBC % Basophils # (Manual) PT INR APTT Heparin Anti-Xa Level ABG pH POC ABG pO2 ABG pO2 ABG HCO3 ABG O2 Saturation ABG Base Excess POC ABG pCO2 ABG Hemoglobin ABG Oxyhemoglobin ABG Glucose Oxyhemoglobin Sodium Potassium Chloride Carbon Dioxide BUN Creatinine Glucose POC Glucose 142 H 130 H Lactic Acid Calcium Phosphorus Magnesium AST ALT Lactate Dehydrogenase CK-MB (CK-2) C-Reactive Protein NT-Pro-B Natriuret Pep Total Protein Albumin Arterial Blood Glucose Urine WBC (Auto) 8.0 H 12/03/19 12/03/19 12/04/19 15:50 17:39 00:04 WBC RBC Hgb Hct MCHC RDW MCV MCH Lymph % (Auto) Floyd % (Auto) Floyd # Eos # Lymph # (Auto) Floyd # (Auto) Eos # (Auto) Seg Neutrophils % Seg Neuts % (Manual) Baso # (Auto) Lymphocytes % (Manual) Monocytes % (Manual) Eosinophils % (Manual) Basophils % (Manual) Seg Neutrophils # Seg Neutrophils # Man Lymphocytes # (Manual) Monocytes # (Manual) Eosinophils # (Manual) Nucleated RBC % Basophils # (Manual) PT INR APTT Heparin Anti-Xa Level ABG pH POC ABG pO2 ABG pO2 ABG HCO3 ABG O2 Saturation ABG Base Excess POC ABG pCO2 ABG Hemoglobin ABG Oxyhemoglobin ABG Glucose Oxyhemoglobin Sodium Potassium Chloride Carbon Dioxide BUN Creatinine Glucose POC Glucose 146 H 133 H Lactic Acid Calcium Phosphorus 2.40 L Magnesium AST ALT Lactate Dehydrogenase CK-MB (CK-2) C-Reactive Protein NT-Pro-B Natriuret Pep Total Protein Albumin Arterial Blood Glucose Urine WBC (Auto) 12/04/19 12/04/19 12/04/19 03:58 03:58 05:22 WBC 12.5 H RBC Hgb 11.2 L Hct 35.2 L MCHC RDW 16.0 H MCV MCH Lymph % (Auto) Floyd % (Auto) 9.6 H Floyd # 1.2 H Eos # 0.5 H Lymph # (Auto) [place] # (Auto) Eos # (Auto) Seg Neutrophils % Seg Neuts % (Manual) Baso # (Auto) Lymphocytes % (Manual) Monocytes % (Manual) Eosinophils % (Manual) Basophils % (Manual) Seg Neutrophils # 8.6 H Seg Neutrophils # Man Lymphocytes # (Manual) Monocytes # (Manual) Eosinophils # (Manual) Nucleated RBC % Basophils # (Manual) PT INR APTT Heparin Anti-Xa Level ABG pH POC ABG pO2 ABG pO2 ABG HCO3 ABG O2 Saturation ABG Base Excess POC ABG pCO2 ABG Hemoglobin ABG Oxyhemoglobin ABG Glucose Oxyhemoglobin Sodium 146 H Potassium Chloride 108.6 H Carbon Dioxide BUN 30 H Creatinine 0.7 L Glucose 121 H POC Glucose 132 H Lactic Acid Calcium Phosphorus Magnesium AST ALT Lactate Dehydrogenase CK-MB (CK-2) C-Reactive Protein NT-Pro-B Natriuret Pep Total Protein Albumin Arterial Blood Glucose Urine WBC (Auto) 12/04/19 12/04/19 12/05/19 13:26 18:43 00:19 WBC RBC Hgb Hct MCHC RDW MCV MCH Lymph % (Auto) Floyd % (Auto) Floyd # Eos # Lymph # (Auto) Floyd # (Auto) Eos # (Auto) Seg Neutrophils % Seg Neuts % (Manual) Baso # (Auto) Lymphocytes % (Manual) Monocytes % (Manual) Eosinophils % (Manual) Basophils % (Manual) Seg Neutrophils # Seg Neutrophils # Man Lymphocytes # (Manual) Monocytes # (Manual) Eosinophils # (Manual) Nucleated RBC % Basophils # (Manual) PT INR APTT Heparin Anti-Xa Level ABG pH POC ABG pO2 ABG pO2 ABG HCO3 ABG O2 Saturation ABG Base Excess POC ABG pCO2 ABG Hemoglobin ABG Oxyhemoglobin ABG Glucose Oxyhemoglobin Sodium Potassium Chloride Carbon Dioxide BUN Creatinine Glucose POC Glucose 185 H 156 H 150 H Lactic Acid Calcium Phosphorus Magnesium AST ALT Lactate Dehydrogenase CK-MB (CK-2) C-Reactive Protein NT-Pro-B Natriuret Pep Total Protein Albumin Arterial Blood Glucose Urine WBC (Auto) 12/05/19 12/05/19 12/05/19 03:37 03:37 05:14 WBC 16.3 H RBC Hgb 11.4 L Hct MCHC RDW 15.6 H MCV MCH Lymph % (Auto) 9.9 L Floyd % (Auto) 9.7 H Floyd # 1.6 H Eos # Lymph # (Auto) Floyd # (Auto) Eos # (Auto) Seg Neutrophils % 78.0 H Seg Neuts % (Manual) Baso # (Auto) Lymphocytes % (Manual) Monocytes % (Manual) Eosinophils % (Manual) Basophils % (Manual) Seg Neutrophils # 12.7 H Seg Neutrophils # Man Lymphocytes # (Manual) Monocytes # (Manual) Eosinophils # (Manual) Nucleated RBC % Basophils # (Manual) PT INR APTT Heparin Anti-Xa Level ABG pH POC ABG pO2 ABG pO2 ABG HCO3 ABG O2 Saturation ABG Base Excess POC ABG pCO2 ABG Hemoglobin ABG Oxyhemoglobin ABG Glucose Oxyhemoglobin Sodium 146 H Potassium Chloride 107.2 H Carbon Dioxide BUN 27 H Creatinine 0.7 L Glucose 171 H POC Glucose 168 H Lactic Acid Calcium Phosphorus Magnesium AST ALT Lactate Dehydrogenase CK-MB (CK-2) C-Reactive Protein NT-Pro-B Natriuret Pep Total Protein Albumin Arterial Blood Glucose Urine WBC (Auto) 12/05/19 12/05/19 12/05/19 12:31 18:10 23:58 WBC RBC Hgb Hct MCHC RDW MCV MCH Lymph % (Auto) Floyd % (Auto) Floyd # Eos # Lymph # (Auto) Floyd # (Auto) Eos # (Auto) Seg Neutrophils % Seg Neuts % (Manual) Baso # (Auto) Lymphocytes % (Manual) Monocytes % (Manual) Eosinophils % (Manual) Basophils % (Manual) Seg Neutrophils # Seg Neutrophils # Man Lymphocytes # (Manual) Monocytes # (Manual) Eosinophils # (Manual) Nucleated RBC % Basophils # (Manual) PT INR APTT Heparin Anti-Xa Level ABG pH POC ABG pO2 ABG pO2 ABG HCO3 ABG O2 Saturation ABG Base Excess POC ABG pCO2 ABG Hemoglobin ABG Oxyhemoglobin ABG Glucose Oxyhemoglobin Sodium Potassium Chloride Carbon Dioxide BUN Creatinine Glucose POC Glucose 159 H 198 H 115 H Lactic Acid Calcium Phosphorus Magnesium AST ALT Lactate Dehydrogenase CK-MB (CK-2) C-Reactive Protein NT-Pro-B Natriuret Pep Total Protein Albumin Arterial Blood Glucose Urine WBC (Auto) 12/06/19 12/06/19 12/06/19 05:24 05:24 05:25 WBC 14.9 H RBC Hgb 10.8 L Hct 34.0 L MCHC RDW 15.6 H MCV MCH Lymph % (Auto) 10.7 L Floyd % (Auto) 8.3 H Floyd # 1.2 H Eos # Lymph # (Auto) [place] # (Auto) Eos # (Auto) Seg Neutrophils % 78.7 H Seg Neuts % (Manual) Baso # (Auto) Lymphocytes % (Manual) Monocytes % (Manual) Eosinophils % (Manual) Basophils % (Manual) Seg Neutrophils # 11.7 H Seg Neutrophils # Man Lymphocytes # (Manual) Monocytes # (Manual) Eosinophils # (Manual) Nucleated RBC % Basophils # (Manual) PT INR APTT Heparin Anti-Xa Level ABG pH POC ABG pO2 ABG pO2 ABG HCO3 ABG O2 Saturation ABG Base Excess POC ABG pCO2 ABG Hemoglobin ABG Oxyhemoglobin ABG Glucose Oxyhemoglobin Sodium 148 H Potassium 5.1 H Chloride 107.6 H Carbon Dioxide BUN 27 H Creatinine 0.7 L Glucose 155 H POC Glucose 157 H Lactic Acid Calcium Phosphorus Magnesium AST ALT Lactate Dehydrogenase CK-MB (CK-2) C-Reactive Protein NT-Pro-B Natriuret Pep Total Protein Albumin Arterial Blood Glucose Urine WBC (Auto) 12/07/19 12/07/19 12/07/19 00:13 05:34 11:33 WBC RBC Hgb Hct MCHC RDW MCV MCH Lymph % (Auto) Floyd % (Auto) Floyd # Eos # Lymph # (Auto) [place] # (Auto) Eos # (Auto) Seg Neutrophils % Seg Neuts % (Manual) Baso # (Auto) Lymphocytes % (Manual) Monocytes % (Manual) Eosinophils % (Manual) Basophils % (Manual) Seg Neutrophils # Seg Neutrophils # Man Lymphocytes # (Manual) Monocytes # (Manual) Eosinophils # (Manual) Nucleated RBC % Basophils # (Manual) PT INR APTT Heparin Anti-Xa Level ABG pH POC ABG pO2 ABG pO2 ABG HCO3 ABG O2 Saturation ABG Base Excess POC ABG pCO2 ABG Hemoglobin ABG Oxyhemoglobin ABG Glucose Oxyhemoglobin Sodium Potassium Chloride Carbon Dioxide BUN Creatinine Glucose POC Glucose 142 H 111 H 169 H Lactic Acid Calcium Phosphorus Magnesium AST ALT Lactate Dehydrogenase CK-MB (CK-2) C-Reactive Protein NT-Pro-B Natriuret Pep Total Protein Albumin Arterial Blood Glucose Urine WBC (Auto) 12/07/19 12/07/19 12/07/19 12:41 13:25 18:19 WBC 12.4 H RBC 3.53 L Hgb 10.2 L Hct 32.1 L MCHC RDW 15.3 H MCV MCH Lymph % (Auto) 10.6 L Floyd % (Auto) 7.8 H Floyd # 1.0 H Eos # Lymph # (Auto) [place] # (Auto) Eos # (Auto) Seg Neutrophils % 77.6 H Seg Neuts % (Manual) Baso # (Auto) Lymphocytes % (Manual) Monocytes % (Manual) Eosinophils % (Manual) Basophils % (Manual) Seg Neutrophils # 9.6 H Seg Neutrophils # Man Lymphocytes # (Manual) Monocytes # (Manual) Eosinophils # (Manual) Nucleated RBC % Basophils # (Manual) PT INR APTT Heparin Anti-Xa Level ABG pH POC ABG pO2 ABG pO2 ABG HCO3 ABG O2 Saturation ABG Base Excess POC ABG pCO2 ABG Hemoglobin ABG Oxyhemoglobin ABG Glucose Oxyhemoglobin Sodium 149 H Potassium Chloride 108.4 H Carbon Dioxide BUN 26 H Creatinine 0.6 L Glucose 149 H POC Glucose 164 H Lactic Acid Calcium Phosphorus Magnesium 2.60 H AST 121 H ALT 145 H Lactate Dehydrogenase CK-MB (CK-2) C-Reactive Protein NT-Pro-B Natriuret Pep Total Protein Albumin 2.6 L Arterial Blood Glucose Urine WBC (Auto) 12/07/19 12/08/19 12/08/19 22:25 00:02 03:55 WBC 13.3 H RBC 3.40 L Hgb 9.7 L Hct 30.8 L MCHC 31 L RDW 15.5 H MCV MCH Lymph % (Auto) Floyd % (Auto) 8.1 H Floyd # 1.1 H Eos # Lymph # (Auto) [place] # (Auto) Eos # (Auto) Seg Neutrophils % 73.0 H Seg Neuts % (Manual) Baso # (Auto) Lymphocytes % (Manual) Monocytes % (Manual) Eosinophils % (Manual) Basophils % (Manual) Seg Neutrophils # 9.7 H Seg Neutrophils # Man Lymphocytes # (Manual) Monocytes # (Manual) Eosinophils # (Manual) Nucleated RBC % Basophils # (Manual) PT INR APTT Heparin Anti-Xa Level 0.12 L ABG pH POC ABG pO2 ABG pO2 ABG HCO3 ABG O2 Saturation ABG Base Excess POC ABG pCO2 ABG Hemoglobin ABG Oxyhemoglobin ABG Glucose Oxyhemoglobin Sodium Potassium Chloride Carbon Dioxide BUN Creatinine Glucose POC Glucose 151 H Lactic Acid Calcium Phosphorus Magnesium AST ALT Lactate Dehydrogenase CK-MB (CK-2) C-Reactive Protein NT-Pro-B Natriuret Pep Total Protein Albumin Arterial Blood Glucose Urine WBC (Auto) 12/08/19 12/08/19 12/08/19 03:55 05:21 06:01 WBC RBC Hgb Hct MCHC RDW MCV MCH Lymph % (Auto) Floyd % (Auto) Floyd # Eos # Lymph # (Auto) [place] # (Auto) Eos # (Auto) Seg Neutrophils % Seg Neuts % (Manual) Baso # (Auto) Lymphocytes % (Manual) Monocytes % (Manual) Eosinophils % (Manual) Basophils % (Manual) Seg Neutrophils # Seg Neutrophils # Man Lymphocytes # (Manual) Monocytes # (Manual) Eosinophils # (Manual) Nucleated RBC % Basophils # (Manual) PT INR APTT Heparin Anti-Xa Level 0.20 L ABG pH POC ABG pO2 ABG pO2 ABG HCO3 ABG O2 Saturation ABG Base Excess POC ABG pCO2 ABG Hemoglobin ABG Oxyhemoglobin ABG Glucose Oxyhemoglobin Sodium 149 H Potassium Chloride 108.0 H Carbon Dioxide BUN 28 H Creatinine 0.6 L Glucose 144 H POC Glucose 143 H Lactic Acid Calcium Phosphorus Magnesium AST 98 H ALT 145 H Lactate Dehydrogenase CK-MB (CK-2) C-Reactive Protein NT-Pro-B Natriuret Pep Total Protein 6.0 L Albumin 2.4 L Arterial Blood Glucose Urine WBC (Auto) 12/08/19 12/08/19 12/08/19 12:08 18:11 23:53 WBC RBC Hgb Hct MCHC RDW MCV MCH Lymph % (Auto) Floyd % (Auto) Floyd # Eos # Lymph # (Auto) [place] # (Auto) Eos # (Auto) Seg Neutrophils % Seg Neuts % (Manual) Baso # (Auto) Lymphocytes % (Manual) Monocytes % (Manual) Eosinophils % (Manual) Basophils % (Manual) Seg Neutrophils # Seg Neutrophils # Man Lymphocytes # (Manual) Monocytes # (Manual) Eosinophils # (Manual) Nucleated RBC % Basophils # (Manual) PT INR APTT Heparin Anti-Xa Level ABG pH POC ABG pO2 ABG pO2 ABG HCO3 ABG O2 Saturation ABG Base Excess POC ABG pCO2 ABG Hemoglobin ABG Oxyhemoglobin ABG Glucose Oxyhemoglobin Sodium Potassium Chloride Carbon Dioxide BUN Creatinine Glucose POC Glucose 172 H 122 H 162 H Lactic Acid Calcium Phosphorus Magnesium AST ALT Lactate Dehydrogenase CK-MB (CK-2) C-Reactive Protein NT-Pro-B Natriuret Pep Total Protein Albumin Arterial Blood Glucose Urine WBC (Auto) 12/09/19 12/09/19 12/09/19 04:03 04:03 05:53 WBC RBC Hgb 9.1 L Hct 28.9 L MCHC RDW MCV MCH Lymph % (Auto) Floyd % (Auto) Floyd # Eos # Lymph # (Auto) [place] # (Auto) Eos # (Auto) Seg Neutrophils % Seg Neuts % (Manual) Baso # (Auto) Lymphocytes % (Manual) Monocytes % (Manual) Eosinophils % (Manual) Basophils % (Manual) Seg Neutrophils # Seg Neutrophils # Man Lymphocytes # (Manual) Monocytes # (Manual) Eosinophils # (Manual) Nucleated RBC % Basophils # (Manual) PT INR APTT Heparin Anti-Xa Level 0.15 L ABG pH POC ABG pO2 ABG pO2 ABG HCO3 ABG O2 Saturation ABG Base Excess POC ABG pCO2 ABG Hemoglobin ABG Oxyhemoglobin ABG Glucose Oxyhemoglobin Sodium Potassium Chloride Carbon Dioxide BUN Creatinine Glucose POC Glucose 124 H Lactic Acid Calcium Phosphorus Magnesium AST ALT Lactate Dehydrogenase CK-MB (CK-2) C-Reactive Protein NT-Pro-B Natriuret Pep Total Protein Albumin Arterial Blood Glucose Urine WBC (Auto) 12/09/19 12/09/19 12/10/19 09:43 12:41 00:13 WBC RBC Hgb Hct MCHC RDW MCV MCH Lymph % (Auto) Floyd % (Auto) Floyd # Eos # Lymph # (Auto) [place] # (Auto) Eos # (Auto) Seg Neutrophils % Seg Neuts % (Manual) Baso # (Auto) Lymphocytes % (Manual) Monocytes % (Manual) Eosinophils % (Manual) Basophils % (Manual) Seg Neutrophils # Seg Neutrophils # Man Lymphocytes # (Manual) Monocytes # (Manual) Eosinophils # (Manual) Nucleated RBC % Basophils # (Manual) PT INR APTT Heparin Anti-Xa Level ABG pH POC ABG pO2 ABG pO2 ABG HCO3 ABG O2 Saturation ABG Base Excess POC ABG pCO2 ABG Hemoglobin ABG Oxyhemoglobin ABG Glucose Oxyhemoglobin Sodium Potassium Chloride Carbon Dioxide BUN 25 H Creatinine 0.6 L Glucose 131 H POC Glucose 109 H 120 H Lactic Acid Calcium Phosphorus Magnesium AST ALT Lactate Dehydrogenase CK-MB (CK-2) C-Reactive Protein NT-Pro-B Natriuret Pep Total Protein Albumin Arterial Blood Glucose Urine WBC (Auto) 12/10/19 12/10/19 12/10/19 04:14 04:14 12:00 WBC 13.3 H RBC 3.34 L Hgb 9.6 L Hct 30.4 L MCHC RDW 15.4 H MCV MCH Lymph % (Auto) Floyd % (Auto) Floyd # Eos # Lymph # (Auto) [place] # (Auto) Eos # (Auto) Seg Neutrophils % Seg Neuts % (Manual) 75.0 H Baso # (Auto) Lymphocytes % (Manual) 13.0 L Monocytes % (Manual) 8.0 H Eosinophils % (Manual) Basophils % (Manual) 2.0 H Seg Neutrophils # Seg Neutrophils # Man 10.0 H Lymphocytes # (Manual) Monocytes # (Manual) 1.1 H Eosinophils # (Manual) Nucleated RBC % Basophils # (Manual) 0.3 H PT INR APTT Heparin Anti-Xa Level ABG pH POC ABG pO2 ABG pO2 ABG HCO3 ABG O2 Saturation ABG Base Excess POC ABG pCO2 ABG Hemoglobin ABG Oxyhemoglobin ABG Glucose Oxyhemoglobin Sodium 147 H Potassium Chloride 108.3 H Carbon Dioxide BUN 21 H Creatinine 0.6 L Glucose 104 H POC Glucose 133 H Lactic Acid Calcium Phosphorus Magnesium AST ALT Lactate Dehydrogenase CK-MB (CK-2) C-Reactive Protein NT-Pro-B Natriuret Pep Total Protein Albumin Arterial Blood Glucose Urine WBC (Auto) 12/10/19 12/10/19 12/11/19 18:44 21:20 00:08 WBC 14.9 H RBC 3.36 L Hgb 9.6 L Hct 30.5 L MCHC RDW 15.4 H MCV MCH Lymph % (Auto) Floyd % (Auto) Floyd # Eos # Lymph # (Auto) [place] # (Auto) Eos # (Auto) Seg Neutrophils % Seg Neuts % (Manual) Baso # (Auto) Lymphocytes % (Manual) Monocytes % (Manual) Eosinophils % (Manual) Basophils % (Manual) Seg Neutrophils # Seg Neutrophils # Man Lymphocytes # (Manual) Monocytes # (Manual) Eosinophils # (Manual) Nucleated RBC % Basophils # (Manual) PT INR APTT Heparin Anti-Xa Level ABG pH POC ABG pO2 ABG pO2 ABG HCO3 ABG O2 Saturation ABG Base Excess POC ABG pCO2 ABG Hemoglobin ABG Oxyhemoglobin ABG Glucose Oxyhemoglobin Sodium Potassium Chloride Carbon Dioxide BUN Creatinine Glucose POC Glucose 119 H 134 H Lactic Acid Calcium Phosphorus Magnesium AST ALT Lactate Dehydrogenase CK-MB (CK-2) C-Reactive Protein NT-Pro-B Natriuret Pep Total Protein Albumin Arterial Blood Glucose Urine WBC (Auto) 12/11/19 12/11/19 12/11/19 03:54 07:28 08:36 WBC 11.9 H RBC 3.25 L Hgb 9.6 L Hct 29.2 L MCHC RDW 15.7 H MCV MCH Lymph % (Auto) Floyd % (Auto) Floyd # Eos # Lymph # (Auto) [place] # (Auto) Eos # (Auto) Seg Neutrophils % Seg Neuts % (Manual) Baso # (Auto) Lymphocytes % (Manual) Monocytes % (Manual) Eosinophils % (Manual) Basophils % (Manual) Seg Neutrophils # Seg Neutrophils # Man Lymphocytes # (Manual) Monocytes # (Manual) Eosinophils # (Manual) Nucleated RBC % Basophils # (Manual) PT INR APTT Heparin Anti-Xa Level 0.10 L 0.16 L ABG pH POC ABG pO2 ABG pO2 ABG HCO3 ABG O2 Saturation ABG Base Excess POC ABG pCO2 ABG Hemoglobin ABG Oxyhemoglobin ABG Glucose Oxyhemoglobin Sodium Potassium Chloride Carbon Dioxide BUN Creatinine Glucose POC Glucose Lactic Acid Calcium Phosphorus Magnesium AST ALT Lactate Dehydrogenase CK-MB (CK-2) C-Reactive Protein NT-Pro-B Natriuret Pep Total Protein Albumin Arterial Blood Glucose Urine WBC (Auto) 12/11/19 12/11/19 12/11/19 08:36 11:45 17:15 WBC RBC Hgb Hct MCHC RDW MCV MCH Lymph % (Auto) Floyd % (Auto) Floyd # Eos # Lymph # (Auto) [place] # (Auto) Eos # (Auto) Seg Neutrophils % Seg Neuts % (Manual) Baso # (Auto) Lymphocytes % (Manual) Monocytes % (Manual) Eosinophils % (Manual) Basophils % (Manual) Seg Neutrophils # Seg Neutrophils # Man Lymphocytes # (Manual) Monocytes # (Manual) Eosinophils # (Manual) Nucleated RBC % Basophils # (Manual) PT INR APTT Heparin Anti-Xa Level ABG pH POC ABG pO2 ABG pO2 ABG HCO3 ABG O2 Saturation ABG Base Excess POC ABG pCO2 ABG Hemoglobin ABG Oxyhemoglobin ABG Glucose Oxyhemoglobin Sodium Potassium Chloride Carbon Dioxide BUN Creatinine 0.5 L Glucose 128 H POC Glucose 136 H 109 H Lactic Acid Calcium Phosphorus Magnesium AST ALT Lactate Dehydrogenase CK-MB (CK-2) C-Reactive Protein NT-Pro-B Natriuret Pep Total Protein Albumin Arterial Blood Glucose Urine WBC (Auto) 0912/12/19 12/12/19 00:03 05:53 05:53 WBC RBC Hgb 8.8 L Hct 27.6 L MCHC RDW MCV MCH Lymph % (Auto) Floyd % (Auto) Floyd # Eos # Lymph # (Auto) [place] # (Auto) Eos # (Auto) Seg Neutrophils % Seg Neuts % (Manual) Baso # (Auto) Lymphocytes % (Manual) Monocytes % (Manual) Eosinophils % (Manual) Basophils % (Manual) Seg Neutrophils # Seg Neutrophils # Man Lymphocytes # (Manual) Monocytes # (Manual) Eosinophils # (Manual) Nucleated RBC % Basophils # (Manual) PT INR APTT Heparin Anti-Xa Level 0.22 L ABG pH POC ABG pO2 ABG pO2 ABG HCO3 ABG O2 Saturation ABG Base Excess POC ABG pCO2 ABG Hemoglobin ABG Oxyhemoglobin ABG Glucose Oxyhemoglobin Sodium Potassium Chloride Carbon Dioxide BUN Creatinine Glucose POC Glucose 116 H Lactic Acid Calcium Phosphorus Magnesium AST ALT Lactate Dehydrogenase CK-MB (CK-2) C-Reactive Protein NT-Pro-B Natriuret Pep Total Protein Albumin Arterial Blood Glucose Urine WBC (Auto) 12/12/19 12/12/19 12/12/19 09:38 12:18 17:44 WBC RBC Hgb Hct MCHC RDW MCV MCH Lymph % (Auto) Floyd % (Auto) Floyd # Eos # Lymph # (Auto) [place] # (Auto) Eos # (Auto) Seg Neutrophils % Seg Neuts % (Manual) Baso # (Auto) Lymphocytes % (Manual) Monocytes % (Manual) Eosinophils % (Manual) Basophils % (Manual) Seg Neutrophils # Seg Neutrophils # Man Lymphocytes # (Manual) Monocytes # (Manual) Eosinophils # (Manual) Nucleated RBC % Basophils # (Manual) PT INR APTT Heparin Anti-Xa Level ABG pH POC ABG pO2 ABG pO2 ABG HCO3 ABG O2 Saturation ABG Base Excess POC ABG pCO2 ABG Hemoglobin ABG Oxyhemoglobin ABG Glucose Oxyhemoglobin Sodium Potassium Chloride Carbon Dioxide BUN Creatinine Glucose POC Glucose 115 H 146 H 146 H Lactic Acid Calcium Phosphorus Magnesium AST ALT Lactate Dehydrogenase CK-MB (CK-2) C-Reactive Protein NT-Pro-B Natriuret Pep Total Protein Albumin Arterial Blood Glucose Urine WBC (Auto) 12/12/19 12/13/19 12/13/19 23:33 05:32 05:32 WBC 13.1 H RBC 3.27 L Hgb 9.5 L Hct 29.3 L MCHC RDW 15.6 H MCV MCH Lymph % (Auto) [place] % (Auto) [place] # Eos # Lymph # (Auto) [place] # (Auto) Eos # (Auto) Seg Neutrophils % Seg Neuts % (Manual) 74.0 H Baso # (Auto) Lymphocytes % (Manual) 8.0 L Monocytes % (Manual) 9.0 H Eosinophils % (Manual) 5.0 H Basophils % (Manual) Seg Neutrophils # Seg Neutrophils # Man 9.7 H Lymphocytes # (Manual) 1.0 L Monocytes # (Manual) 1.2 H Eosinophils # (Manual) 0.7 H Nucleated RBC % Basophils # (Manual) PT INR APTT Heparin Anti-Xa Level 0.20 L ABG pH POC ABG pO2 ABG pO2 ABG HCO3 ABG O2 Saturation ABG Base Excess POC ABG pCO2 ABG Hemoglobin ABG Oxyhemoglobin ABG Glucose Oxyhemoglobin Sodium Potassium Chloride Carbon Dioxide BUN Creatinine Glucose POC Glucose 126 H Lactic Acid Calcium Phosphorus Magnesium AST ALT Lactate Dehydrogenase CK-MB (CK-2) C-Reactive Protein NT-Pro-B Natriuret Pep Total Protein Albumin Arterial Blood Glucose Urine WBC (Auto) 12/13/19 12/13/19 12/13/19 05:32 05:46 11:57 WBC RBC Hgb Hct MCHC RDW MCV MCH Lymph % (Auto) [place] % (Auto) [place] # Eos # Lymph # (Auto) [place] # (Auto) Eos # (Auto) Seg Neutrophils % Seg Neuts % (Manual) Baso # (Auto) Lymphocytes % (Manual) Monocytes % (Manual) Eosinophils % (Manual) Basophils % (Manual) Seg Neutrophils # Seg Neutrophils # Man Lymphocytes # (Manual) Monocytes # (Manual) Eosinophils # (Manual) Nucleated RBC % Basophils # (Manual) PT INR APTT Heparin Anti-Xa Level ABG pH POC ABG pO2 ABG pO2 ABG HCO3 ABG O2 Saturation ABG Base Excess POC ABG pCO2 ABG Hemoglobin ABG Oxyhemoglobin ABG Glucose Oxyhemoglobin Sodium Potassium Chloride Carbon Dioxide 31 H BUN Creatinine 0.6 L Glucose 114 H POC Glucose 118 H 133 H Lactic Acid Calcium Phosphorus Magnesium AST ALT Lactate Dehydrogenase CK-MB (CK-2) C-Reactive Protein NT-Pro-B Natriuret Pep Total Protein Albumin Arterial Blood Glucose Urine WBC (Auto) 12/13/19 12/13/19 12/14/19 17:44 23:46 05:32 WBC RBC Hgb Hct MCHC RDW MCV MCH Lymph % (Auto) [place] % (Auto) [place] # Eos # Lymph # (Auto) [place] # (Auto) Eos # (Auto) Seg Neutrophils % Seg Neuts % (Manual) Baso # (Auto) Lymphocytes % (Manual) Monocytes % (Manual) Eosinophils % (Manual) Basophils % (Manual) Seg Neutrophils # Seg Neutrophils # Man Lymphocytes # (Manual) Monocytes # (Manual) Eosinophils # (Manual) Nucleated RBC % Basophils # (Manual) PT INR APTT Heparin Anti-Xa Level ABG pH POC ABG pO2 ABG pO2 ABG HCO3 ABG O2 Saturation ABG Base Excess POC ABG pCO2 ABG Hemoglobin ABG Oxyhemoglobin ABG Glucose Oxyhemoglobin Sodium Potassium Chloride Carbon Dioxide BUN Creatinine Glucose POC Glucose 161 H 126 H 139 H Lactic Acid Calcium Phosphorus Magnesium AST ALT Lactate Dehydrogenase CK-MB (CK-2) C-Reactive Protein NT-Pro-B Natriuret Pep Total Protein Albumin Arterial Blood Glucose Urine WBC (Auto) 12/14/19 12/14/19 12/14/19 06:03 06:03 09:37 WBC RBC Hgb 9.6 L Hct 30.4 L MCHC RDW MCV MCH Lymph % (Auto) [place] % (Auto) Floyd # Eos # Lymph # (Auto) [place] # (Auto) Eos # (Auto) Seg Neutrophils % Seg Neuts % (Manual) Baso # (Auto) Lymphocytes % (Manual) Monocytes % (Manual) Eosinophils % (Manual) Basophils % (Manual) Seg Neutrophils # Seg Neutrophils # Man Lymphocytes # (Manual) Monocytes # (Manual) Eosinophils # (Manual) Nucleated RBC % Basophils # (Manual) PT INR APTT Heparin Anti-Xa Level 0.24 L ABG pH POC ABG pO2 ABG pO2 ABG HCO3 ABG O2 Saturation ABG Base Excess POC ABG pCO2 ABG Hemoglobin ABG Oxyhemoglobin ABG Glucose Oxyhemoglobin Sodium Potassium Chloride Carbon Dioxide BUN Creatinine 0.6 L Glucose 162 H POC Glucose Lactic Acid Calcium Phosphorus Magnesium AST 71 H ALT 118 H Lactate Dehydrogenase CK-MB (CK-2) C-Reactive Protein NT-Pro-B Natriuret Pep Total Protein 6.2 L Albumin 2.3 L Arterial Blood Glucose Urine WBC (Auto) 0912/14/19 12/15/19 12:06 18:18 00:19 WBC RBC Hgb Hct MCHC RDW MCV MCH Lymph % (Auto) [place] % (Auto) [place] # Eos # Lymph # (Auto) [place] # (Auto) Eos # (Auto) Seg Neutrophils % Seg Neuts % (Manual) Baso # (Auto) Lymphocytes % (Manual) Monocytes % (Manual) Eosinophils % (Manual) Basophils % (Manual) Seg Neutrophils # Seg Neutrophils # Man Lymphocytes # (Manual) Monocytes # (Manual) Eosinophils # (Manual) Nucleated RBC % Basophils # (Manual) PT INR APTT Heparin Anti-Xa Level ABG pH POC ABG pO2 ABG pO2 ABG HCO3 ABG O2 Saturation ABG Base Excess POC ABG pCO2 ABG Hemoglobin ABG Oxyhemoglobin ABG Glucose Oxyhemoglobin Sodium Potassium Chloride Carbon Dioxide BUN Creatinine Glucose POC Glucose 147 H 166 H 123 H Lactic Acid Calcium Phosphorus Magnesium AST ALT Lactate Dehydrogenase CK-MB (CK-2) C-Reactive Protein NT-Pro-B Natriuret Pep Total Protein Albumin Arterial Blood Glucose Urine WBC (Auto) 12/15/19 12/15/19 12/15/19 05:28 05:29 05:29 WBC 14.9 H RBC 3.19 L Hgb 9.1 L Hct 28.7 L MCHC RDW 16.0 H MCV MCH Lymph % (Auto) [place] % (Auto) Floyd # Eos # Lymph # (Auto) [place] # (Auto) Eos # (Auto) Seg Neutrophils % Seg Neuts % (Manual) Baso # (Auto) Lymphocytes % (Manual) Monocytes % (Manual) Eosinophils % (Manual) Basophils % (Manual) Seg Neutrophils # Seg Neutrophils # Man Lymphocytes # (Manual) Monocytes # (Manual) Eosinophils # (Manual) Nucleated RBC % Basophils # (Manual) PT INR APTT Heparin Anti-Xa Level 0.19 L ABG pH POC ABG pO2 ABG pO2 ABG HCO3 ABG O2 Saturation ABG Base Excess POC ABG pCO2 ABG Hemoglobin ABG Oxyhemoglobin ABG Glucose Oxyhemoglobin Sodium Potassium Chloride Carbon Dioxide BUN Creatinine 0.6 L Glucose 110 H POC Glucose Lactic Acid Calcium Phosphorus Magnesium AST ALT Lactate Dehydrogenase CK-MB (CK-2) C-Reactive Protein NT-Pro-B Natriuret Pep Total Protein Albumin Arterial Blood Glucose Urine WBC (Auto) 12/15/19 12/15/19 12/15/19 05:53 11:50 17:26 WBC RBC Hgb Hct MCHC RDW MCV MCH Lymph % (Auto) [place] % (Auto) [place] # Eos # Lymph # (Auto) [place] # (Auto) Eos # (Auto) Seg Neutrophils % Seg Neuts % (Manual) Baso # (Auto) Lymphocytes % (Manual) Monocytes % (Manual) Eosinophils % (Manual) Basophils % (Manual) Seg Neutrophils # Seg Neutrophils # Man Lymphocytes # (Manual) Monocytes # (Manual) Eosinophils # (Manual) Nucleated RBC % Basophils # (Manual) PT INR APTT Heparin Anti-Xa Level ABG pH POC ABG pO2 ABG pO2 ABG HCO3 ABG O2 Saturation ABG Base Excess POC ABG pCO2 ABG Hemoglobin ABG Oxyhemoglobin ABG Glucose Oxyhemoglobin Sodium Potassium Chloride Carbon Dioxide BUN Creatinine Glucose POC Glucose 119 H 132 H 128 H Lactic Acid Calcium Phosphorus Magnesium AST ALT Lactate Dehydrogenase CK-MB (CK-2) C-Reactive Protein NT-Pro-B Natriuret Pep Total Protein Albumin Arterial Blood Glucose Urine WBC (Auto) 12/15/19 12/16/19 12/16/19 23:11 05:30 05:46 WBC RBC Hgb 8.8 L Hct 27.9 L MCHC RDW MCV MCH Lymph % (Auto) [place] % (Auto) Floyd # Eos # Lymph # (Auto) [place] # (Auto) Eos # (Auto) Seg Neutrophils % Seg Neuts % (Manual) Baso # (Auto) Lymphocytes % (Manual) Monocytes % (Manual) Eosinophils % (Manual) Basophils % (Manual) Seg Neutrophils # Seg Neutrophils # Man Lymphocytes # (Manual) Monocytes # (Manual) Eosinophils # (Manual) Nucleated RBC % Basophils # (Manual) PT INR APTT Heparin Anti-Xa Level ABG pH POC ABG pO2 ABG pO2 ABG HCO3 ABG O2 Saturation ABG Base Excess POC ABG pCO2 ABG Hemoglobin ABG Oxyhemoglobin ABG Glucose Oxyhemoglobin Sodium Potassium Chloride Carbon Dioxide BUN Creatinine Glucose POC Glucose 150 H 134 H Lactic Acid Calcium Phosphorus Magnesium AST ALT Lactate Dehydrogenase CK-MB (CK-2) C-Reactive Protein NT-Pro-B Natriuret Pep Total Protein Albumin Arterial Blood Glucose Urine WBC (Auto) 12/16/19 12/16/19 12/16/19 05:46 05:46 11:44 WBC RBC Hgb Hct MCHC RDW MCV MCH Lymph % (Auto) Floyd % (Auto) Floyd # Eos # Lymph # (Auto) Floyd # (Auto) Eos # (Auto) Seg Neutrophils % Seg Neuts % (Manual) Baso # (Auto) Lymphocytes % (Manual) Monocytes % (Manual) Eosinophils % (Manual) Basophils % (Manual) Seg Neutrophils # Seg Neutrophils # Man Lymphocytes # (Manual) Monocytes # (Manual) Eosinophils # (Manual) Nucleated RBC % Basophils # (Manual) PT INR APTT Heparin Anti-Xa Level 0.20 L ABG pH POC ABG pO2 ABG pO2 ABG HCO3 ABG O2 Saturation ABG Base Excess POC ABG pCO2 ABG Hemoglobin ABG Oxyhemoglobin ABG Glucose Oxyhemoglobin Sodium Potassium Chloride Carbon Dioxide 31 H BUN Creatinine 0.5 L Glucose 147 H POC Glucose 164 H Lactic Acid Calcium Phosphorus Magnesium AST ALT Lactate Dehydrogenase CK-MB (CK-2) C-Reactive Protein NT-Pro-B Natriuret Pep Total Protein Albumin Arterial Blood Glucose Urine WBC (Auto) 12/16/19 12/16/19 12/17/19 17:17 23:49 05:30 WBC 13.9 H RBC 3.27 L Hgb 9.4 L Hct 29.2 L MCHC RDW 16.0 H MCV MCH Lymph % (Auto) Floyd % (Auto) 8.8 H Floyd # Eos # Lymph # (Auto) Floyd # (Auto) 1.2 H Eos # (Auto) 0.5 H Seg Neutrophils % 70.5 H Seg Neuts % (Manual) Baso # (Auto) 0.2 H Lymphocytes % (Manual) Monocytes % (Manual) Eosinophils % (Manual) Basophils % (Manual) Seg Neutrophils # 9.8 H Seg Neutrophils # Man Lymphocytes # (Manual) Monocytes # (Manual) Eosinophils # (Manual) Nucleated RBC % Basophils # (Manual) PT INR APTT Heparin Anti-Xa Level ABG pH POC ABG pO2 ABG pO2 ABG HCO3 ABG O2 Saturation ABG Base Excess POC ABG pCO2 ABG Hemoglobin ABG Oxyhemoglobin ABG Glucose Oxyhemoglobin Sodium Potassium Chloride Carbon Dioxide BUN Creatinine Glucose POC Glucose 162 H 144 H Lactic Acid Calcium Phosphorus Magnesium AST ALT Lactate Dehydrogenase CK-MB (CK-2) C-Reactive Protein NT-Pro-B Natriuret Pep Total Protein Albumin Arterial Blood Glucose Urine WBC (Auto) 12/17/19 12/17/19 12/17/19 05:30 06:06 11:50 WBC RBC Hgb Hct MCHC RDW MCV MCH Lymph % (Auto) [place] % (Auto) [place] # Eos # Lymph # (Auto) [place] # (Auto) Eos # (Auto) Seg Neutrophils % Seg Neuts % (Manual) Baso # (Auto) Lymphocytes % (Manual) Monocytes % (Manual) Eosinophils % (Manual) Basophils % (Manual) Seg Neutrophils # Seg Neutrophils # Man Lymphocytes # (Manual) Monocytes # (Manual) Eosinophils # (Manual) Nucleated RBC % Basophils # (Manual) PT INR APTT Heparin Anti-Xa Level ABG pH POC ABG pO2 ABG pO2 ABG HCO3 ABG O2 Saturation ABG Base Excess POC ABG pCO2 ABG Hemoglobin ABG Oxyhemoglobin ABG Glucose Oxyhemoglobin Sodium Potassium Chloride 97.4 L Carbon Dioxide 32 H BUN Creatinine 0.5 L Glucose 135 H POC Glucose 151 H 140 H Lactic Acid Calcium Phosphorus Magnesium AST ALT Lactate Dehydrogenase CK-MB (CK-2) C-Reactive Protein NT-Pro-B Natriuret Pep Total Protein Albumin Arterial Blood Glucose Urine WBC (Auto) 12/17/19 12/17/19 12/18/19 17:50 23:46 05:17 WBC RBC Hgb 8.8 L Hct 28.0 L MCHC RDW MCV MCH Lymph % (Auto) [place] % (Auto) [place] # Eos # Lymph # (Auto) [place] # (Auto) Eos # (Auto) Seg Neutrophils % Seg Neuts % (Manual) Baso # (Auto) Lymphocytes % (Manual) Monocytes % (Manual) Eosinophils % (Manual) Basophils % (Manual) Seg Neutrophils # Seg Neutrophils # Man Lymphocytes # (Manual) Monocytes # (Manual) Eosinophils # (Manual) Nucleated RBC % Basophils # (Manual) PT INR APTT Heparin Anti-Xa Level ABG pH POC ABG pO2 ABG pO2 ABG HCO3 ABG O2 Saturation ABG Base Excess POC ABG pCO2 ABG Hemoglobin ABG Oxyhemoglobin ABG Glucose Oxyhemoglobin Sodium Potassium Chloride Carbon Dioxide BUN Creatinine Glucose POC Glucose 158 H 150 H Lactic Acid Calcium Phosphorus Magnesium AST ALT Lactate Dehydrogenase CK-MB (CK-2) C-Reactive Protein NT-Pro-B Natriuret Pep Total Protein Albumin Arterial Blood Glucose Urine WBC (Auto) 12/18/19 12/18/19 12/18/19 05:17 05:49 11:12 WBC RBC Hgb Hct MCHC RDW MCV MCH Lymph % (Auto) [place] % (Auto) [place] # Eos # Lymph # (Auto) [place] # (Auto) Eos # (Auto) Seg Neutrophils % Seg Neuts % (Manual) Baso # (Auto) Lymphocytes % (Manual) Monocytes % (Manual) Eosinophils % (Manual) Basophils % (Manual) Seg Neutrophils # Seg Neutrophils # Man Lymphocytes # (Manual) Monocytes # (Manual) Eosinophils # (Manual) Nucleated RBC % Basophils # (Manual) PT INR APTT Heparin Anti-Xa Level 0.16 L ABG pH POC ABG pO2 ABG pO2 ABG HCO3 ABG O2 Saturation ABG Base Excess POC ABG pCO2 ABG Hemoglobin ABG Oxyhemoglobin ABG Glucose Oxyhemoglobin Sodium Potassium Chloride Carbon Dioxide BUN Creatinine Glucose POC Glucose 127 H 191 H Lactic Acid Calcium Phosphorus Magnesium AST ALT Lactate Dehydrogenase CK-MB (CK-2) C-Reactive Protein NT-Pro-B Natriuret Pep Total Protein Albumin Arterial Blood Glucose Urine WBC (Auto) 12/18/19 12/18/19 12/19/19 17:03 20:16 00:08 WBC RBC Hgb Hct MCHC RDW MCV MCH Lymph % (Auto) [place] % (Auto) [place] # Eos # Lymph # (Auto) [place] # (Auto) Eos # (Auto) Seg Neutrophils % Seg Neuts % (Manual) Baso # (Auto) Lymphocytes % (Manual) Monocytes % (Manual) Eosinophils % (Manual) Basophils % (Manual) Seg Neutrophils # Seg Neutrophils # Man Lymphocytes # (Manual) Monocytes # (Manual) Eosinophils # (Manual) Nucleated RBC % Basophils # (Manual) PT INR APTT Heparin Anti-Xa Level ABG pH POC ABG pO2 ABG pO2 ABG HCO3 ABG O2 Saturation ABG Base Excess POC ABG pCO2 ABG Hemoglobin ABG Oxyhemoglobin ABG Glucose Oxyhemoglobin Sodium Potassium Chloride Carbon Dioxide BUN Creatinine Glucose POC Glucose 133 H 128 H 129 H Lactic Acid Calcium Phosphorus Magnesium AST ALT Lactate Dehydrogenase CK-MB (CK-2) C-Reactive Protein NT-Pro-B Natriuret Pep Total Protein Albumin Arterial Blood Glucose Urine WBC (Auto) 12/19/19 12/19/19 12/19/19 04:45 04:45 05:35 WBC RBC Hgb Hct MCHC RDW MCV MCH Lymph % (Auto) [place] % (Auto) [place] # Eos # Lymph # (Auto) [place] # (Auto) Eos # (Auto) Seg Neutrophils % Seg Neuts % (Manual) Baso # (Auto) Lymphocytes % (Manual) Monocytes % (Manual) Eosinophils % (Manual) Basophils % (Manual) Seg Neutrophils # Seg Neutrophils # Man Lymphocytes # (Manual) Monocytes # (Manual) Eosinophils # (Manual) Nucleated RBC % Basophils # (Manual) PT INR APTT Heparin Anti-Xa Level 0.17 L ABG pH POC ABG pO2 ABG pO2 ABG HCO3 ABG O2 Saturation ABG Base Excess POC ABG pCO2 ABG Hemoglobin ABG Oxyhemoglobin ABG Glucose Oxyhemoglobin Sodium Potassium Chloride Carbon Dioxide BUN Creatinine Glucose POC Glucose 120 H Lactic Acid Calcium Phosphorus Magnesium AST ALT Lactate Dehydrogenase 228 H CK-MB (CK-2) C-Reactive Protein NT-Pro-B Natriuret Pep Total Protein Albumin Arterial Blood Glucose Urine WBC (Auto) 12/19/19 12/19/19 12/19/19 09:20 11:32 11:32 WBC 14.6 H RBC 3.08 L Hgb 9.0 L Hct 26.8 L MCHC RDW 15.9 H MCV MCH Lymph % (Auto) [place] % (Auto) [place] # Eos # Lymph # (Auto) [place] # (Auto) Eos # (Auto) Seg Neutrophils % Seg Neuts % (Manual) 82.0 H Baso # (Auto) Lymphocytes % (Manual) 10.0 L Monocytes % (Manual) Eosinophils % (Manual) Basophils % (Manual) Seg Neutrophils # Seg Neutrophils # Man 12.0 H Lymphocytes # (Manual) Monocytes # (Manual) 0.9 H Eosinophils # (Manual) Nucleated RBC % 1.0 H Basophils # (Manual) PT INR APTT Heparin Anti-Xa Level ABG pH 7.451 H POC ABG pO2 ABG pO2 62.6 L ABG HCO3 33.2 H ABG O2 Saturation 93.8 L ABG Base Excess 8.3 H POC ABG pCO2 ABG Hemoglobin 8.3 L ABG Oxyhemoglobin ABG Glucose Oxyhemoglobin 91.9 L Sodium Potassium Chloride 95.0 L Carbon Dioxide 33 H BUN 22 H Creatinine 0.6 L Glucose 150 H POC Glucose Lactic Acid Calcium Phosphorus Magnesium AST ALT Lactate Dehydrogenase CK-MB (CK-2) C-Reactive Protein NT-Pro-B Natriuret Pep Total Protein 6.2 L Albumin 2.4 L Arterial Blood Glucose Urine WBC (Auto) 12/19/19 12/19/19 12/20/19 11:56 18:17 00:09 WBC RBC Hgb Hct MCHC RDW MCV MCH Lymph % (Auto) [place] % (Auto) [place] # Eos # Lymph # (Auto) [place] # (Auto) Eos # (Auto) Seg Neutrophils % Seg Neuts % (Manual) Baso # (Auto) Lymphocytes % (Manual) Monocytes % (Manual) Eosinophils % (Manual) Basophils % (Manual) Seg Neutrophils # Seg Neutrophils # Man Lymphocytes # (Manual) Monocytes # (Manual) Eosinophils # (Manual) Nucleated RBC % Basophils # (Manual) PT INR APTT Heparin Anti-Xa Level ABG pH POC ABG pO2 ABG pO2 ABG HCO3 ABG O2 Saturation ABG Base Excess POC ABG pCO2 ABG Hemoglobin ABG Oxyhemoglobin ABG Glucose Oxyhemoglobin Sodium Potassium Chloride Carbon Dioxide BUN Creatinine Glucose POC Glucose 156 H 156 H 155 H Lactic Acid Calcium Phosphorus Magnesium AST ALT Lactate Dehydrogenase CK-MB (CK-2) C-Reactive Protein NT-Pro-B Natriuret Pep Total Protein Albumin Arterial Blood Glucose Urine WBC (Auto) 12/20/19 12/20/19 12/20/19 05:26 06:02 18:17 WBC RBC Hgb Hct MCHC RDW MCV MCH Lymph % (Auto) [place] % (Auto) [place] # Eos # Lymph # (Auto) [place] # (Auto) Eos # (Auto) Seg Neutrophils % Seg Neuts % (Manual) Baso # (Auto) Lymphocytes % (Manual) Monocytes % (Manual) Eosinophils % (Manual) Basophils % (Manual) Seg Neutrophils # Seg Neutrophils # Man Lymphocytes # (Manual) Monocytes # (Manual) Eosinophils # (Manual) Nucleated RBC % Basophils # (Manual) PT INR APTT Heparin Anti-Xa Level 0.19 L ABG pH POC ABG pO2 ABG pO2 ABG HCO3 ABG O2 Saturation ABG Base Excess POC ABG pCO2 ABG Hemoglobin ABG Oxyhemoglobin ABG Glucose Oxyhemoglobin Sodium Potassium Chloride Carbon Dioxide BUN Creatinine Glucose POC Glucose 137 H 128 H Lactic Acid Calcium Phosphorus Magnesium AST ALT Lactate Dehydrogenase CK-MB (CK-2) C-Reactive Protein NT-Pro-B Natriuret Pep Total Protein Albumin Arterial Blood Glucose Urine WBC (Auto) 12/20/19 12/21/19 12/21/19 23:34 05:31 05:31 WBC 12.7 H RBC 3.09 L Hgb 8.9 L Hct 27.4 L MCHC RDW 15.8 H MCV MCH Lymph % (Auto) 12.1 L [place] % (Auto) 7.8 H [place] # Eos # Lymph # (Auto) [place] # (Auto) 1.0 H Eos # (Auto) Seg Neutrophils % 77.1 H Seg Neuts % (Manual) Baso # (Auto) Lymphocytes % (Manual) Monocytes % (Manual) Eosinophils % (Manual) Basophils % (Manual) Seg Neutrophils # 9.8 H Seg Neutrophils # Man Lymphocytes # (Manual) Monocytes # (Manual) Eosinophils # (Manual) Nucleated RBC % Basophils # (Manual) PT INR APTT Heparin Anti-Xa Level ABG pH POC ABG pO2 ABG pO2 ABG HCO3 ABG O2 Saturation ABG Base Excess POC ABG pCO2 ABG Hemoglobin ABG Oxyhemoglobin ABG Glucose Oxyhemoglobin Sodium Potassium Chloride 96.9 L Carbon Dioxide 37 H BUN 27 H Creatinine 0.7 L Glucose 140 H POC Glucose 145 H Lactic Acid Calcium Phosphorus Magnesium AST ALT Lactate Dehydrogenase CK-MB (CK-2) C-Reactive Protein NT-Pro-B Natriuret Pep Total Protein Albumin Arterial Blood Glucose Urine WBC (Auto) 12/21/19 12/21/19 12/21/19 05:38 10:13 11:51 WBC RBC Hgb Hct MCHC RDW MCV MCH Lymph % (Auto) [place] % (Auto) [place] # Eos # Lymph # (Auto) [place] # (Auto) Eos # (Auto) Seg Neutrophils % Seg Neuts % (Manual) Baso # (Auto) Lymphocytes % (Manual) Monocytes % (Manual) Eosinophils % (Manual) Basophils % (Manual) Seg Neutrophils # Seg Neutrophils # Man Lymphocytes # (Manual) Monocytes # (Manual) Eosinophils # (Manual) Nucleated RBC % Basophils # (Manual) PT INR APTT 23.9 L Heparin Anti-Xa Level < 0.10 L ABG pH POC ABG pO2 ABG pO2 ABG HCO3 ABG O2 Saturation ABG Base Excess POC ABG pCO2 ABG Hemoglobin ABG Oxyhemoglobin ABG Glucose Oxyhemoglobin Sodium Potassium Chloride Carbon Dioxide BUN Creatinine Glucose POC Glucose 151 H 145 H Lactic Acid Calcium Phosphorus Magnesium AST ALT Lactate Dehydrogenase CK-MB (CK-2) C-Reactive Protein NT-Pro-B Natriuret Pep Total Protein Albumin Arterial Blood Glucose Urine WBC (Auto) 12/21/19 12/22/19 12/22/19 17:16 00:01 01:33 WBC RBC Hgb Hct MCHC RDW MCV MCH Lymph % (Auto) [place] % (Auto) [place] # Eos # Lymph # (Auto) [place] # (Auto) Eos # (Auto) Seg Neutrophils % Seg Neuts % (Manual) Baso # (Auto) Lymphocytes % (Manual) Monocytes % (Manual) Eosinophils % (Manual) Basophils % (Manual) Seg Neutrophils # Seg Neutrophils # Man Lymphocytes # (Manual) Monocytes # (Manual) Eosinophils # (Manual) Nucleated RBC % Basophils # (Manual) PT INR APTT Heparin Anti-Xa Level 0.10 L ABG pH POC ABG pO2 ABG pO2 ABG HCO3 ABG O2 Saturation ABG Base Excess POC ABG pCO2 ABG Hemoglobin ABG Oxyhemoglobin ABG Glucose Oxyhemoglobin Sodium Potassium Chloride Carbon Dioxide BUN Creatinine Glucose POC Glucose 167 H 179 H Lactic Acid Calcium Phosphorus Magnesium AST ALT Lactate Dehydrogenase CK-MB (CK-2) C-Reactive Protein NT-Pro-B Natriuret Pep Total Protein Albumin Arterial Blood Glucose Urine WBC (Auto) 12/22/19 12/22/19 12/22/19 03:22 05:10 05:10 WBC 13.8 H RBC 3.20 L Hgb 8.9 L Hct 28.1 L MCHC RDW 15.9 H MCV MCH Lymph % (Auto) [place] % (Auto) [place] # Eos # Lymph # (Auto) [place] # (Auto) Eos # (Auto) Seg Neutrophils % Seg Neuts % (Manual) Baso # (Auto) Lymphocytes % (Manual) Monocytes % (Manual) Eosinophils % (Manual) Basophils % (Manual) Seg Neutrophils # Seg Neutrophils # Man Lymphocytes # (Manual) Monocytes # (Manual) Eosinophils # (Manual) Nucleated RBC % Basophils # (Manual) PT INR APTT Heparin Anti-Xa Level ABG pH POC ABG pO2 52.3 L ABG pO2 ABG HCO3 ABG O2 Saturation ABG Base Excess POC ABG pCO2 52.9 H ABG Hemoglobin 10.7 L ABG Oxyhemoglobin 84 L ABG Glucose Oxyhemoglobin Sodium Potassium Chloride 96.6 L Carbon Dioxide BUN 25 H Creatinine 0.7 L Glucose 129 H POC Glucose Lactic Acid Calcium Phosphorus Magnesium AST ALT Lactate Dehydrogenase CK-MB (CK-2) C-Reactive Protein NT-Pro-B Natriuret Pep Total Protein Albumin Arterial Blood Glucose Urine WBC (Auto) 12/22/19 12/22/19 12/22/19 05:18 12:32 12:43 WBC RBC Hgb Hct MCHC RDW MCV MCH Lymph % (Auto) [place] % (Auto) [place] # Eos # Lymph # (Auto) [place] # (Auto) Eos # (Auto) Seg Neutrophils % Seg Neuts % (Manual) Baso # (Auto) Lymphocytes % (Manual) Monocytes % (Manual) Eosinophils % (Manual) Basophils % (Manual) Seg Neutrophils # Seg Neutrophils # Man Lymphocytes # (Manual) Monocytes # (Manual) Eosinophils # (Manual) Nucleated RBC % Basophils # (Manual) PT INR APTT Heparin Anti-Xa Level 0.18 L ABG pH POC ABG pO2 ABG pO2 ABG HCO3 ABG O2 Saturation ABG Base Excess POC ABG pCO2 ABG Hemoglobin ABG Oxyhemoglobin ABG Glucose Oxyhemoglobin Sodium Potassium Chloride Carbon Dioxide BUN Creatinine Glucose POC Glucose 131 H 208 H Lactic Acid Calcium Phosphorus Magnesium AST ALT Lactate Dehydrogenase CK-MB (CK-2) C-Reactive Protein NT-Pro-B Natriuret Pep Total Protein Albumin Arterial Blood Glucose Urine WBC (Auto) 12/22/19 12/22/19 12/23/19 17:44 23:20 03:51 WBC 15.2 H RBC 3.43 L Hgb 9.6 L Hct 30.3 L MCHC RDW 15.9 H MCV MCH Lymph % (Auto) [place] % (Auto) [place] # Eos # Lymph # (Auto) [place] # (Auto) Eos # (Auto) Seg Neutrophils % Seg Neuts % (Manual) Baso # (Auto) Lymphocytes % (Manual) Monocytes % (Manual) Eosinophils % (Manual) Basophils % (Manual) Seg Neutrophils # Seg Neutrophils # Man Lymphocytes # (Manual) Monocytes # (Manual) Eosinophils # (Manual) Nucleated RBC % Basophils # (Manual) PT INR APTT Heparin Anti-Xa Level ABG pH POC ABG pO2 ABG pO2 ABG HCO3 ABG O2 Saturation ABG Base Excess POC ABG pCO2 ABG Hemoglobin ABG Oxyhemoglobin ABG Glucose Oxyhemoglobin Sodium Potassium Chloride Carbon Dioxide BUN Creatinine Glucose POC Glucose 209 H 119 H Lactic Acid Calcium Phosphorus Magnesium AST ALT Lactate Dehydrogenase CK-MB (CK-2) C-Reactive Protein NT-Pro-B Natriuret Pep Total Protein Albumin Arterial Blood Glucose Urine WBC (Auto) 12/23/19 12/23/19 12/23/19 03:51 05:31 12:09 WBC RBC Hgb Hct MCHC RDW MCV MCH Lymph % (Auto) [place] % (Auto) [place] # Eos # Lymph # (Auto) [place] # (Auto) Eos # (Auto) Seg Neutrophils % Seg Neuts % (Manual) Baso # (Auto) Lymphocytes % (Manual) Monocytes % (Manual) Eosinophils % (Manual) Basophils % (Manual) Seg Neutrophils # Seg Neutrophils # Man Lymphocytes # (Manual) Monocytes # (Manual) Eosinophils # (Manual) Nucleated RBC % Basophils # (Manual) PT INR APTT Heparin Anti-Xa Level ABG pH POC ABG pO2 ABG pO2 ABG HCO3 ABG O2 Saturation ABG Base Excess POC ABG pCO2 ABG Hemoglobin ABG Oxyhemoglobin ABG Glucose Oxyhemoglobin Sodium Potassium Chloride 97.2 L Carbon Dioxide 31 H BUN 23 H Creatinine 0.6 L Glucose 153 H POC Glucose 149 H 144 H Lactic Acid Calcium Phosphorus Magnesium AST ALT Lactate Dehydrogenase CK-MB (CK-2) C-Reactive Protein NT-Pro-B Natriuret Pep Total Protein Albumin Arterial Blood Glucose Urine WBC (Auto) 12/23/19 12/23/19 12/23/19 15:30 17:49 23:31 WBC RBC Hgb Hct MCHC RDW MCV MCH Lymph % (Auto) [place] % (Auto) [place] # Eos # Lymph # (Auto) [place] # (Auto) Eos # (Auto) Seg Neutrophils % Seg Neuts % (Manual) Baso # (Auto) Lymphocytes % (Manual) Monocytes % (Manual) Eosinophils % (Manual) Basophils % (Manual) Seg Neutrophils # Seg Neutrophils # Man Lymphocytes # (Manual) Monocytes # (Manual) Eosinophils # (Manual) Nucleated RBC % Basophils # (Manual) PT INR APTT Heparin Anti-Xa Level 0.21 L ABG pH POC ABG pO2 ABG pO2 ABG HCO3 ABG O2 Saturation ABG Base Excess POC ABG pCO2 ABG Hemoglobin ABG Oxyhemoglobin ABG Glucose Oxyhemoglobin Sodium Potassium Chloride Carbon Dioxide BUN Creatinine Glucose POC Glucose 192 H 151 H Lactic Acid Calcium Phosphorus Magnesium AST ALT Lactate Dehydrogenase CK-MB (CK-2) C-Reactive Protein NT-Pro-B Natriuret Pep Total Protein Albumin Arterial Blood Glucose Urine WBC (Auto) 12/24/19 12/24/19 12/24/19 05:34 12:13 16:50 WBC RBC Hgb Hct MCHC RDW MCV MCH Lymph % (Auto) [place] % (Auto) [place] # Eos # Lymph # (Auto) [place] # (Auto) Eos # (Auto) Seg Neutrophils % Seg Neuts % (Manual) Baso # (Auto) Lymphocytes % (Manual) Monocytes % (Manual) Eosinophils % (Manual) Basophils % (Manual) Seg Neutrophils # Seg Neutrophils # Man Lymphocytes # (Manual) Monocytes # (Manual) Eosinophils # (Manual) Nucleated RBC % Basophils # (Manual) PT INR APTT Heparin Anti-Xa Level 0.16 L ABG pH POC ABG pO2 ABG pO2 ABG HCO3 ABG O2 Saturation ABG Base Excess POC ABG pCO2 ABG Hemoglobin ABG Oxyhemoglobin ABG Glucose Oxyhemoglobin Sodium Potassium Chloride Carbon Dioxide BUN Creatinine Glucose POC Glucose 145 H 124 H Lactic Acid Calcium Phosphorus Magnesium AST ALT Lactate Dehydrogenase CK-MB (CK-2) C-Reactive Protein NT-Pro-B Natriuret Pep Total Protein Albumin Arterial Blood Glucose Urine WBC (Auto) 12/24/19 12/25/19 12/25/19 17:53 00:14 04:18 WBC 12.9 H RBC 3.30 L Hgb 9.1 L Hct 28.8 L MCHC RDW 16.4 H MCV MCH Lymph % (Auto) [place] % (Auto) 7.8 H [place] # Eos # Lymph # (Auto) [place] # (Auto) 1.0 H Eos # (Auto) Seg Neutrophils % 75.5 H Seg Neuts % (Manual) Baso # (Auto) Lymphocytes % (Manual) Monocytes % (Manual) Eosinophils % (Manual) Basophils % (Manual) Seg Neutrophils # 9.7 H Seg Neutrophils # Man Lymphocytes # (Manual) Monocytes # (Manual) Eosinophils # (Manual) Nucleated RBC % Basophils # (Manual) PT INR APTT Heparin Anti-Xa Level ABG pH POC ABG pO2 ABG pO2 ABG HCO3 ABG O2 Saturation ABG Base Excess POC ABG pCO2 ABG Hemoglobin ABG Oxyhemoglobin ABG Glucose Oxyhemoglobin Sodium Potassium Chloride Carbon Dioxide BUN Creatinine Glucose POC Glucose 164 H 148 H Lactic Acid Calcium Phosphorus Magnesium AST ALT Lactate Dehydrogenase CK-MB (CK-2) C-Reactive Protein NT-Pro-B Natriuret Pep Total Protein Albumin Arterial Blood Glucose Urine WBC (Auto) 12/25/19 12/25/19 12/25/19 04:18 05:38 11:44 WBC RBC Hgb Hct MCHC RDW MCV MCH Lymph % (Auto) [place] % (Auto) [place] # Eos # Lymph # (Auto) [place] # (Auto) Eos # (Auto) Seg Neutrophils % Seg Neuts % (Manual) Baso # (Auto) Lymphocytes % (Manual) Monocytes % (Manual) Eosinophils % (Manual) Basophils % (Manual) Seg Neutrophils # Seg Neutrophils # Man Lymphocytes # (Manual) Monocytes # (Manual) Eosinophils # (Manual) Nucleated RBC % Basophils # (Manual) PT INR APTT Heparin Anti-Xa Level ABG pH POC ABG pO2 ABG pO2 ABG HCO3 ABG O2 Saturation ABG Base Excess POC ABG pCO2 ABG Hemoglobin ABG Oxyhemoglobin ABG Glucose Oxyhemoglobin Sodium Potassium Chloride Carbon Dioxide 33 H BUN 27 H Creatinine 0.6 L Glucose 132 H POC Glucose 152 H 166 H Lactic Acid Calcium Phosphorus Magnesium AST ALT Lactate Dehydrogenase CK-MB (CK-2) C-Reactive Protein NT-Pro-B Natriuret Pep Total Protein Albumin Arterial Blood Glucose Urine WBC (Auto) 12/25/19 12/26/19 12/26/19 18:29 00:17 00:18 WBC RBC Hgb Hct MCHC RDW MCV MCH Lymph % (Auto) [place] % (Auto) [place] # Eos # Lymph # (Auto) [place] # (Auto) Eos # (Auto) Seg Neutrophils % Seg Neuts % (Manual) Baso # (Auto) Lymphocytes % (Manual) Monocytes % (Manual) Eosinophils % (Manual) Basophils % (Manual) Seg Neutrophils # Seg Neutrophils # Man Lymphocytes # (Manual) Monocytes # (Manual) Eosinophils # (Manual) Nucleated RBC % Basophils # (Manual) PT INR APTT Heparin Anti-Xa Level ABG pH POC ABG pO2 ABG pO2 ABG HCO3 ABG O2 Saturation ABG Base Excess POC ABG pCO2 ABG Hemoglobin ABG Oxyhemoglobin ABG Glucose Oxyhemoglobin Sodium Potassium Chloride 97.8 L Carbon Dioxide BUN 25 H Creatinine 0.6 L Glucose 140 H POC Glucose 194 H 151 H Lactic Acid Calcium Phosphorus Magnesium AST ALT Lactate Dehydrogenase CK-MB (CK-2) C-Reactive Protein NT-Pro-B Natriuret Pep Total Protein Albumin Arterial Blood Glucose Urine WBC (Auto) 12/26/19 12/26/19 12/26/19 05:36 11:41 17:50 WBC RBC Hgb Hct MCHC RDW MCV MCH Lymph % (Auto) [place] % (Auto) [place] # Eos # Lymph # (Auto) [place] # (Auto) Eos # (Auto) Seg Neutrophils % Seg Neuts % (Manual) Baso # (Auto) Lymphocytes % (Manual) Monocytes % (Manual) Eosinophils % (Manual) Basophils % (Manual) Seg Neutrophils # Seg Neutrophils # Man Lymphocytes # (Manual) Monocytes # (Manual) Eosinophils # (Manual) Nucleated RBC % Basophils # (Manual) PT INR APTT Heparin Anti-Xa Level ABG pH POC ABG pO2 ABG pO2 ABG HCO3 ABG O2 Saturation ABG Base Excess POC ABG pCO2 ABG Hemoglobin ABG Oxyhemoglobin ABG Glucose Oxyhemoglobin Sodium Potassium Chloride Carbon Dioxide BUN Creatinine Glucose POC Glucose 156 H 148 H 139 H Lactic Acid Calcium Phosphorus Magnesium AST ALT Lactate Dehydrogenase CK-MB (CK-2) C-Reactive Protein NT-Pro-B Natriuret Pep Total Protein Albumin Arterial Blood Glucose Urine WBC (Auto) 12/26/19 12/27/19 12/27/19 23:19 05:34 12:02 WBC RBC Hgb Hct MCHC RDW MCV MCH Lymph % (Auto) [place] % (Auto) [place] # Eos # Lymph # (Auto) [place] # (Auto) Eos # (Auto) Seg Neutrophils % Seg Neuts % (Manual) Baso # (Auto) Lymphocytes % (Manual) Monocytes % (Manual) Eosinophils % (Manual) Basophils % (Manual) Seg Neutrophils # Seg Neutrophils # Man Lymphocytes # (Manual) Monocytes # (Manual) Eosinophils # (Manual) Nucleated RBC % Basophils # (Manual) PT INR APTT Heparin Anti-Xa Level ABG pH POC ABG pO2 ABG pO2 ABG HCO3 ABG O2 Saturation ABG Base Excess POC ABG pCO2 ABG Hemoglobin ABG Oxyhemoglobin ABG Glucose Oxyhemoglobin Sodium Potassium Chloride Carbon Dioxide BUN Creatinine Glucose POC Glucose 161 H 145 H 157 H Lactic Acid Calcium Phosphorus Magnesium AST ALT Lactate Dehydrogenase CK-MB (CK-2) C-Reactive Protein NT-Pro-B Natriuret Pep Total Protein Albumin Arterial Blood Glucose Urine WBC (Auto) 12/27/19 12/27/19 12/27/19 17:35 20:11 23:00 WBC RBC Hgb Hct MCHC RDW MCV MCH Lymph % (Auto) [place] % (Auto) [place] # Eos # Lymph # (Auto) [place] # (Auto) Eos # (Auto) Seg Neutrophils % Seg Neuts % (Manual) Baso # (Auto) Lymphocytes % (Manual) Monocytes % (Manual) Eosinophils % (Manual) Basophils % (Manual) Seg Neutrophils # Seg Neutrophils # Man Lymphocytes # (Manual) Monocytes # (Manual) Eosinophils # (Manual) Nucleated RBC % Basophils # (Manual) PT INR APTT Heparin Anti-Xa Level 0.19 L ABG pH POC ABG pO2 ABG pO2 ABG HCO3 ABG O2 Saturation ABG Base Excess POC ABG pCO2 ABG Hemoglobin ABG Oxyhemoglobin ABG Glucose Oxyhemoglobin Sodium Potassium Chloride Carbon Dioxide BUN Creatinine Glucose POC Glucose 158 H 155 H Lactic Acid Calcium Phosphorus Magnesium AST ALT Lactate Dehydrogenase CK-MB (CK-2) C-Reactive Protein NT-Pro-B Natriuret Pep Total Protein Albumin Arterial Blood Glucose Urine WBC (Auto) 12/27/19 12/28/19 12/28/19 23:45 02:41 02:41 WBC 13.0 H RBC 3.48 L Hgb 9.5 L Hct 30.6 L MCHC 31 L RDW 16.6 H MCV MCH 27 L Lymph % (Auto) 13.0 L [place] % (Auto) 8.0 H [place] # Eos # Lymph # (Auto) [place] # (Auto) 1.0 H Eos # (Auto) Seg Neutrophils % 76.3 H Seg Neuts % (Manual) Baso # (Auto) Lymphocytes % (Manual) Monocytes % (Manual) Eosinophils % (Manual) Basophils % (Manual) Seg Neutrophils # 9.9 H Seg Neutrophils # Man Lymphocytes # (Manual) Monocytes # (Manual) Eosinophils # (Manual) Nucleated RBC % Basophils # (Manual) PT INR APTT Heparin Anti-Xa Level ABG pH POC ABG pO2 ABG pO2 ABG HCO3 ABG O2 Saturation ABG Base Excess POC ABG pCO2 ABG Hemoglobin ABG Oxyhemoglobin ABG Glucose Oxyhemoglobin Sodium Potassium Chloride Carbon Dioxide BUN 22 H Creatinine 0.6 L Glucose 101 H POC Glucose 130 H Lactic Acid Calcium Phosphorus Magnesium AST ALT Lactate Dehydrogenase CK-MB (CK-2) C-Reactive Protein NT-Pro-B Natriuret Pep Total Protein Albumin Arterial Blood Glucose Urine WBC (Auto) 12/28/19 12/28/19 12/28/19 06:00 12:34 18:13 WBC RBC Hgb Hct MCHC RDW MCV MCH Lymph % (Auto) Floyd % (Auto) Floyd # Eos # Lymph # (Auto) Floyd # (Auto) Eos # (Auto) Seg Neutrophils % Seg Neuts % (Manual) Baso # (Auto) Lymphocytes % (Manual) Monocytes % (Manual) Eosinophils % (Manual) Basophils % (Manual) Seg Neutrophils # Seg Neutrophils # Man Lymphocytes # (Manual) Monocytes # (Manual) Eosinophils # (Manual) Nucleated RBC % Basophils # (Manual) PT INR APTT Heparin Anti-Xa Level ABG pH POC ABG pO2 ABG pO2 ABG HCO3 ABG O2 Saturation ABG Base Excess POC ABG pCO2 ABG Hemoglobin ABG Oxyhemoglobin ABG Glucose Oxyhemoglobin Sodium Potassium Chloride Carbon Dioxide BUN Creatinine Glucose POC Glucose 150 H 161 H 128 H Lactic Acid Calcium Phosphorus Magnesium AST ALT Lactate Dehydrogenase CK-MB (CK-2) C-Reactive Protein NT-Pro-B Natriuret Pep Total Protein Albumin Arterial Blood Glucose Urine WBC (Auto) 12/28/19 12/29/19 12/29/19 23:36 05:21 11:40 WBC RBC Hgb Hct MCHC RDW MCV MCH Lymph % (Auto) Floyd % (Auto) Floyd # Eos # Lymph # (Auto) Floyd # (Auto) Eos # (Auto) Seg Neutrophils % Seg Neuts % (Manual) Baso # (Auto) Lymphocytes % (Manual) Monocytes % (Manual) Eosinophils % (Manual) Basophils % (Manual) Seg Neutrophils # Seg Neutrophils # Man Lymphocytes # (Manual) Monocytes # (Manual) Eosinophils # (Manual) Nucleated RBC % Basophils # (Manual) PT INR APTT Heparin Anti-Xa Level ABG pH POC ABG pO2 ABG pO2 ABG HCO3 ABG O2 Saturation ABG Base Excess POC ABG pCO2 ABG Hemoglobin ABG Oxyhemoglobin ABG Glucose Oxyhemoglobin Sodium Potassium Chloride Carbon Dioxide BUN Creatinine Glucose POC Glucose 137 H 136 H 166 H Lactic Acid Calcium Phosphorus Magnesium AST ALT Lactate Dehydrogenase CK-MB (CK-2) C-Reactive Protein NT-Pro-B Natriuret Pep Total Protein Albumin Arterial Blood Glucose Urine WBC (Auto) 12/29/19 12/29/19 12/29/19 17:23 19:21 23:38 WBC RBC Hgb Hct MCHC RDW MCV MCH Lymph % (Auto) [place] % (Auto) Floyd # Eos # Lymph # (Auto) [place] # (Auto) Eos # (Auto) Seg Neutrophils % Seg Neuts % (Manual) Baso # (Auto) Lymphocytes % (Manual) Monocytes % (Manual) Eosinophils % (Manual) Basophils % (Manual) Seg Neutrophils # Seg Neutrophils # Man Lymphocytes # (Manual) Monocytes # (Manual) Eosinophils # (Manual) Nucleated RBC % Basophils # (Manual) PT INR APTT Heparin Anti-Xa Level 0.20 L ABG pH POC ABG pO2 ABG pO2 ABG HCO3 ABG O2 Saturation ABG Base Excess POC ABG pCO2 ABG Hemoglobin ABG Oxyhemoglobin ABG Glucose Oxyhemoglobin Sodium Potassium Chloride Carbon Dioxide BUN Creatinine Glucose POC Glucose 144 H 141 H Lactic Acid Calcium Phosphorus Magnesium AST ALT Lactate Dehydrogenase CK-MB (CK-2) C-Reactive Protein NT-Pro-B Natriuret Pep Total Protein Albumin Arterial Blood Glucose Urine WBC (Auto) 12/30/19 12/30/19 12/30/19 03:58 03:58 04:59 WBC RBC 3.54 L Hgb 9.8 L Hct 30.7 L MCHC RDW 16.8 H MCV MCH Lymph % (Auto) [place] % (Auto) Floyd # Eos # Lymph # (Auto) [place] # (Auto) Eos # (Auto) Seg Neutrophils % Seg Neuts % (Manual) Baso # (Auto) Lymphocytes % (Manual) Monocytes % (Manual) Eosinophils % (Manual) Basophils % (Manual) Seg Neutrophils # Seg Neutrophils # Man Lymphocytes # (Manual) Monocytes # (Manual) Eosinophils # (Manual) Nucleated RBC % Basophils # (Manual) PT INR APTT Heparin Anti-Xa Level ABG pH POC ABG pO2 ABG pO2 ABG HCO3 29.8 H ABG O2 Saturation ABG Base Excess 4.8 H POC ABG pCO2 ABG Hemoglobin 11.2 L ABG Oxyhemoglobin ABG Glucose Oxyhemoglobin 93.8 L Sodium Potassium Chloride 97.8 L Carbon Dioxide BUN 26 H Creatinine Glucose 168 H POC Glucose Lactic Acid Calcium Phosphorus Magnesium AST ALT Lactate Dehydrogenase CK-MB (CK-2) C-Reactive Protein NT-Pro-B Natriuret Pep Total Protein Albumin Arterial Blood Glucose Urine WBC (Auto) 12/30/19 12/30/19 12/30/19 05:45 11:34 17:28 WBC RBC Hgb Hct MCHC RDW MCV MCH Lymph % (Auto) [place] % (Auto) [place] # Eos # Lymph # (Auto) [place] # (Auto) Eos # (Auto) Seg Neutrophils % Seg Neuts % (Manual) Baso # (Auto) Lymphocytes % (Manual) Monocytes % (Manual) Eosinophils % (Manual) Basophils % (Manual) Seg Neutrophils # Seg Neutrophils # Man Lymphocytes # (Manual) Monocytes # (Manual) Eosinophils # (Manual) Nucleated RBC % Basophils # (Manual) PT INR APTT Heparin Anti-Xa Level ABG pH POC ABG pO2 ABG pO2 ABG HCO3 ABG O2 Saturation ABG Base Excess POC ABG pCO2 ABG Hemoglobin ABG Oxyhemoglobin ABG Glucose Oxyhemoglobin Sodium Potassium Chloride Carbon Dioxide BUN Creatinine Glucose POC Glucose 163 H 180 H 150 H Lactic Acid Calcium Phosphorus Magnesium AST ALT Lactate Dehydrogenase CK-MB (CK-2) C-Reactive Protein NT-Pro-B Natriuret Pep Total Protein Albumin Arterial Blood Glucose Urine WBC (Auto) 12/30/19 12/31/19 12/31/19 23:43 04:55 05:07 WBC RBC Hgb Hct MCHC RDW MCV MCH Lymph % (Auto) [place] % (Auto) [place] # Eos # Lymph # (Auto) [place] # (Auto) Eos # (Auto) Seg Neutrophils % Seg Neuts % (Manual) Baso # (Auto) Lymphocytes % (Manual) Monocytes % (Manual) Eosinophils % (Manual) Basophils % (Manual) Seg Neutrophils # Seg Neutrophils # Man Lymphocytes # (Manual) Monocytes # (Manual) Eosinophils # (Manual) Nucleated RBC % Basophils # (Manual) PT INR APTT Heparin Anti-Xa Level ABG pH POC ABG pO2 ABG pO2 ABG HCO3 ABG O2 Saturation ABG Base Excess POC ABG pCO2 ABG Hemoglobin ABG Oxyhemoglobin ABG Glucose Oxyhemoglobin Sodium Potassium 5.6 H D Chloride Carbon Dioxide BUN 33 H Creatinine Glucose 131 H POC Glucose 142 H 134 H Lactic Acid Calcium Phosphorus Magnesium AST ALT Lactate Dehydrogenase CK-MB (CK-2) C-Reactive Protein NT-Pro-B Natriuret Pep Total Protein Albumin Arterial Blood Glucose Urine WBC (Auto) 12/31/19 12/31/19 12/31/19 11:30 17:19 17:36 WBC RBC Hgb Hct MCHC RDW MCV MCH Lymph % (Auto) [place] % (Auto) [place] # Eos # Lymph # (Auto) [place] # (Auto) Eos # (Auto) Seg Neutrophils % Seg Neuts % (Manual) Baso # (Auto) Lymphocytes % (Manual) Monocytes % (Manual) Eosinophils % (Manual) Basophils % (Manual) Seg Neutrophils # Seg Neutrophils # Man Lymphocytes # (Manual) Monocytes # (Manual) Eosinophils # (Manual) Nucleated RBC % Basophils # (Manual) PT INR APTT Heparin Anti-Xa Level ABG pH POC ABG pO2 ABG pO2 ABG HCO3 ABG O2 Saturation ABG Base Excess POC ABG pCO2 ABG Hemoglobin ABG Oxyhemoglobin ABG Glucose Oxyhemoglobin Sodium Potassium Chloride Carbon Dioxide BUN 35 H Creatinine Glucose 156 H POC Glucose 158 H 181 H Lactic Acid Calcium Phosphorus Magnesium AST ALT Lactate Dehydrogenase CK-MB (CK-2) C-Reactive Protein NT-Pro-B Natriuret Pep Total Protein Albumin Arterial Blood Glucose Urine WBC (Auto) 12/31/19 12/31/19 12/31/19 18:16 19:41 21:53 WBC RBC Hgb Hct MCHC RDW MCV MCH Lymph % (Auto) [place] % (Auto) [place] # Eos # Lymph # (Auto) [place] # (Auto) Eos # (Auto) Seg Neutrophils % Seg Neuts % (Manual) Baso # (Auto) Lymphocytes % (Manual) Monocytes % (Manual) Eosinophils % (Manual) Basophils % (Manual) Seg Neutrophils # Seg Neutrophils # Man Lymphocytes # (Manual) Monocytes # (Manual) Eosinophils # (Manual) Nucleated RBC % Basophils # (Manual) PT INR APTT Heparin Anti-Xa Level 0.20 L ABG pH POC ABG pO2 ABG pO2 ABG HCO3 ABG O2 Saturation ABG Base Excess POC ABG pCO2 ABG Hemoglobin ABG Oxyhemoglobin ABG Glucose Oxyhemoglobin Sodium Potassium Chloride Carbon Dioxide BUN 34 H Creatinine Glucose 169 H POC Glucose 141 H Lactic Acid Calcium Phosphorus Magnesium AST ALT Lactate Dehydrogenase CK-MB (CK-2) C-Reactive Protein NT-Pro-B Natriuret Pep Total Protein Albumin Arterial Blood Glucose Urine WBC (Auto) 12/31/19 01/01/20 01/01/20 23:51 05:17 10:40 WBC RBC Hgb Hct MCHC RDW MCV MCH Lymph % (Auto) [place] % (Auto) [place] # Eos # Lymph # (Auto) [place] # (Auto) Eos # (Auto) Seg Neutrophils % Seg Neuts % (Manual) Baso # (Auto) Lymphocytes % (Manual) Monocytes % (Manual) Eosinophils % (Manual) Basophils % (Manual) Seg Neutrophils # Seg Neutrophils # Man Lymphocytes # (Manual) Monocytes # (Manual) Eosinophils # (Manual) Nucleated RBC % Basophils # (Manual) PT INR APTT Heparin Anti-Xa Level ABG pH POC ABG pO2 ABG pO2 ABG HCO3 ABG O2 Saturation ABG Base Excess POC ABG pCO2 ABG Hemoglobin ABG Oxyhemoglobin ABG Glucose Oxyhemoglobin Sodium Potassium Chloride Carbon Dioxide BUN 31 H Creatinine 0.7 L Glucose 137 H POC Glucose 131 H 155 H Lactic Acid Calcium Phosphorus Magnesium AST 73 H ALT 97 H Lactate Dehydrogenase CK-MB (CK-2) C-Reactive Protein NT-Pro-B Natriuret Pep 3866 H Total Protein Albumin 2.8 L Arterial Blood Glucose Urine WBC (Auto) 01/01/20 01/01/20 01/01/20 12:26 15:33 17:53 WBC 14.3 H RBC 3.35 L Hgb 9.1 L Hct 28.8 L MCHC RDW 17.0 H MCV MCH 27 L Lymph % (Auto) 7.0 L [place] % (Auto) 7.6 H [place] # Eos # Lymph # (Auto) 1.0 L [place] # (Auto) 1.1 H Eos # (Auto) Seg Neutrophils % 83.3 H Seg Neuts % (Manual) Baso # (Auto) Lymphocytes % (Manual) Monocytes % (Manual) Eosinophils % (Manual) Basophils % (Manual) Seg Neutrophils # 12.0 H Seg Neutrophils # Man Lymphocytes # (Manual) Monocytes # (Manual) Eosinophils # (Manual) Nucleated RBC % Basophils # (Manual) PT INR APTT Heparin Anti-Xa Level ABG pH POC ABG pO2 ABG pO2 ABG HCO3 ABG O2 Saturation ABG Base Excess POC ABG pCO2 ABG Hemoglobin ABG Oxyhemoglobin ABG Glucose Oxyhemoglobin Sodium Potassium Chloride Carbon Dioxide BUN Creatinine Glucose POC Glucose 128 H 128 H Lactic Acid Calcium Phosphorus Magnesium AST ALT Lactate Dehydrogenase CK-MB (CK-2) C-Reactive Protein NT-Pro-B Natriuret Pep Total Protein Albumin Arterial Blood Glucose Urine WBC (Auto) 01/01/20 01/02/20 01/02/20 23:04 05:39 07:00 WBC RBC Hgb Hct MCHC RDW MCV MCH Lymph % (Auto) [place] % (Auto) [place] # Eos # Lymph # (Auto) [place] # (Auto) Eos # (Auto) Seg Neutrophils % Seg Neuts % (Manual) Baso # (Auto) Lymphocytes % (Manual) Monocytes % (Manual) Eosinophils % (Manual) Basophils % (Manual) Seg Neutrophils # Seg Neutrophils # Man Lymphocytes # (Manual) Monocytes # (Manual) Eosinophils # (Manual) Nucleated RBC % Basophils # (Manual) PT INR APTT Heparin Anti-Xa Level 0.13 L ABG pH POC ABG pO2 ABG pO2 ABG HCO3 ABG O2 Saturation ABG Base Excess POC ABG pCO2 ABG Hemoglobin ABG Oxyhemoglobin ABG Glucose Oxyhemoglobin Sodium Potassium Chloride Carbon Dioxide BUN Creatinine Glucose POC Glucose 120 H 169 H Lactic Acid Calcium Phosphorus Magnesium AST ALT Lactate Dehydrogenase CK-MB (CK-2) C-Reactive Protein NT-Pro-B Natriuret Pep Total Protein Albumin Arterial Blood Glucose Urine WBC (Auto) 01/02/20 01/02/20 01/02/20 12:15 14:06 17:58 WBC RBC Hgb Hct MCHC RDW MCV MCH Lymph % (Auto) [place] % (Auto) [place] # Eos # Lymph # (Auto) [place] # (Auto) Eos # (Auto) Seg Neutrophils % Seg Neuts % (Manual) Baso # (Auto) Lymphocytes % (Manual) Monocytes % (Manual) Eosinophils % (Manual) Basophils % (Manual) Seg Neutrophils # Seg Neutrophils # Man Lymphocytes # (Manual) Monocytes # (Manual) Eosinophils # (Manual) Nucleated RBC % Basophils # (Manual) PT INR APTT Heparin Anti-Xa Level < 0.10 L ABG pH POC ABG pO2 ABG pO2 ABG HCO3 ABG O2 Saturation ABG Base Excess POC ABG pCO2 ABG Hemoglobin ABG Oxyhemoglobin ABG Glucose Oxyhemoglobin Sodium Potassium Chloride Carbon Dioxide BUN Creatinine Glucose POC Glucose 190 H 198 H Lactic Acid Calcium Phosphorus Magnesium AST ALT Lactate Dehydrogenase CK-MB (CK-2) C-Reactive Protein NT-Pro-B Natriuret Pep Total Protein Albumin Arterial Blood Glucose Urine WBC (Auto) 01/02/20 01/02/20 01/03/20 21:43 23:33 05:42 WBC RBC Hgb Hct MCHC RDW MCV MCH Lymph % (Auto) [place] % (Auto) [place] # Eos # Lymph # (Auto) [place] # (Auto) Eos # (Auto) Seg Neutrophils % Seg Neuts % (Manual) Baso # (Auto) Lymphocytes % (Manual) Monocytes % (Manual) Eosinophils % (Manual) Basophils % (Manual) Seg Neutrophils # Seg Neutrophils # Man Lymphocytes # (Manual) Monocytes # (Manual) Eosinophils # (Manual) Nucleated RBC % Basophils # (Manual) PT INR APTT Heparin Anti-Xa Level 0.10 L ABG pH POC ABG pO2 ABG pO2 ABG HCO3 ABG O2 Saturation ABG Base Excess POC ABG pCO2 ABG Hemoglobin ABG Oxyhemoglobin ABG Glucose Oxyhemoglobin Sodium Potassium Chloride Carbon Dioxide BUN Creatinine Glucose POC Glucose 180 H 163 H Lactic Acid Calcium Phosphorus Magnesium AST ALT Lactate Dehydrogenase CK-MB (CK-2) C-Reactive Protein NT-Pro-B Natriuret Pep Total Protein Albumin Arterial Blood Glucose Urine WBC (Auto) 01/03/20 01/03/20 01/03/20 06:50 07:25 07:45 WBC 12.1 H RBC 3.35 L Hgb 9.0 L Hct 28.9 L MCHC 31 L RDW 16.6 H MCV MCH 27 L Lymph % (Auto) 13.0 L [place] % (Auto) 8.6 H [place] # Eos # Lymph # (Auto) [place] # (Auto) 1.0 H Eos # (Auto) Seg Neutrophils % 75.9 H Seg Neuts % (Manual) Baso # (Auto) Lymphocytes % (Manual) Monocytes % (Manual) Eosinophils % (Manual) Basophils % (Manual) Seg Neutrophils # 9.2 H Seg Neutrophils # Man Lymphocytes # (Manual) Monocytes # (Manual) Eosinophils # (Manual) Nucleated RBC % Basophils # (Manual) PT INR APTT Heparin Anti-Xa Level 0.29 L ABG pH POC ABG pO2 ABG pO2 ABG HCO3 ABG O2 Saturation ABG Base Excess POC ABG pCO2 ABG Hemoglobin ABG Oxyhemoglobin ABG Glucose Oxyhemoglobin Sodium Potassium 3.3 L D Chloride Carbon Dioxide 35 H D BUN 23 H Creatinine 0.6 L Glucose 149 H POC Glucose Lactic Acid Calcium Phosphorus Magnesium AST ALT 88 H Lactate Dehydrogenase CK-MB (CK-2) C-Reactive Protein NT-Pro-B Natriuret Pep Total Protein 6.2 L Albumin 2.9 L Arterial Blood Glucose Urine WBC (Auto) 01/03/20 01/03/20 01/03/20 12:05 17:42 18:30 WBC RBC Hgb Hct MCHC RDW MCV MCH Lymph % (Auto) [place] % (Auto) [place] # Eos # Lymph # (Auto) [place] # (Auto) Eos # (Auto) Seg Neutrophils % Seg Neuts % (Manual) Baso # (Auto) Lymphocytes % (Manual) Monocytes % (Manual) Eosinophils % (Manual) Basophils % (Manual) Seg Neutrophils # Seg Neutrophils # Man Lymphocytes # (Manual) Monocytes # (Manual) Eosinophils # (Manual) Nucleated RBC % Basophils # (Manual) PT INR APTT Heparin Anti-Xa Level ABG pH POC ABG pO2 ABG pO2 70.7 L ABG HCO3 36.1 H ABG O2 Saturation 94.4 L ABG Base Excess 10.0 H POC ABG pCO2 ABG Hemoglobin 9.7 L ABG Oxyhemoglobin ABG Glucose Oxyhemoglobin 91.8 L Sodium Potassium Chloride Carbon Dioxide BUN Creatinine Glucose POC Glucose 128 H 132 H Lactic Acid Calcium Phosphorus Magnesium AST ALT Lactate Dehydrogenase CK-MB (CK-2) C-Reactive Protein NT-Pro-B Natriuret Pep Total Protein Albumin Arterial Blood Glucose Urine WBC (Auto) 01/04/20 01/04/20 01/04/20 00:10 04:26 05:23 WBC RBC Hgb Hct MCHC RDW MCV MCH Lymph % (Auto) [place] % (Auto) [place] # Eos # Lymph # (Auto) [place] # (Auto) Eos # (Auto) Seg Neutrophils % Seg Neuts % (Manual) Baso # (Auto) Lymphocytes % (Manual) Monocytes % (Manual) Eosinophils % (Manual) Basophils % (Manual) Seg Neutrophils # Seg Neutrophils # Man Lymphocytes # (Manual) Monocytes # (Manual) Eosinophils # (Manual) Nucleated RBC % Basophils # (Manual) PT INR APTT Heparin Anti-Xa Level 0.16 L ABG pH POC ABG pO2 ABG pO2 ABG HCO3 ABG O2 Saturation ABG Base Excess POC ABG pCO2 ABG Hemoglobin ABG Oxyhemoglobin ABG Glucose Oxyhemoglobin Sodium Potassium Chloride Carbon Dioxide BUN Creatinine Glucose POC Glucose 121 H 119 H Lactic Acid Calcium Phosphorus Magnesium AST ALT Lactate Dehydrogenase CK-MB (CK-2) C-Reactive Protein NT-Pro-B Natriuret Pep Total Protein Albumin Arterial Blood Glucose Urine WBC (Auto) 01/04/20 01/04/20 01/04/20 09:50 09:50 12:18 WBC 15.4 H RBC 3.30 L Hgb 8.7 L Hct 28.2 L MCHC 31 L RDW 17.0 H MCV MCH 26 L Lymph % (Auto) [place] % (Auto) 7.6 H [place] # Eos # Lymph # (Auto) [place] # (Auto) 1.2 H Eos # (Auto) Seg Neutrophils % 75.4 H Seg Neuts % (Manual) Baso # (Auto) Lymphocytes % (Manual) Monocytes % (Manual) Eosinophils % (Manual) Basophils % (Manual) Seg Neutrophils # 11.6 H Seg Neutrophils # Man Lymphocytes # (Manual) Monocytes # (Manual) Eosinophils # (Manual) Nucleated RBC % Basophils # (Manual) PT INR APTT Heparin Anti-Xa Level ABG pH POC ABG pO2 ABG pO2 ABG HCO3 ABG O2 Saturation ABG Base Excess POC ABG pCO2 ABG Hemoglobin ABG Oxyhemoglobin ABG Glucose Oxyhemoglobin Sodium 148 H Potassium 3.5 L Chloride Carbon Dioxide 32 H BUN Creatinine 0.6 L Glucose 114 H POC Glucose 111 H Lactic Acid Calcium Phosphorus Magnesium AST ALT 59 H Lactate Dehydrogenase CK-MB (CK-2) C-Reactive Protein NT-Pro-B Natriuret Pep Total Protein Albumin 2.6 L Arterial Blood Glucose Urine WBC (Auto) 01/05/20 01/05/20 01/05/20 04:05 04:05 05:19 WBC 11.7 H RBC 3.50 L Hgb 9.3 L Hct 29.9 L MCHC 31 L RDW 16.6 H MCV MCH 27 L Lymph % (Auto) 13.1 L [place] % (Auto) 9.7 H [place] # Eos # Lymph # (Auto) [place] # (Auto) 1.1 H Eos # (Auto) Seg Neutrophils % 74.0 H Seg Neuts % (Manual) Baso # (Auto) Lymphocytes % (Manual) Monocytes % (Manual) Eosinophils % (Manual) Basophils % (Manual) Seg Neutrophils # 8.6 H Seg Neutrophils # Man Lymphocytes # (Manual) Monocytes # (Manual) Eosinophils # (Manual) Nucleated RBC % Basophils # (Manual) PT INR APTT Heparin Anti-Xa Level ABG pH POC ABG pO2 ABG pO2 ABG HCO3 ABG O2 Saturation ABG Base Excess POC ABG pCO2 ABG Hemoglobin ABG Oxyhemoglobin ABG Glucose Oxyhemoglobin Sodium 151 H Potassium Chloride Carbon Dioxide 34 H BUN Creatinine 0.7 L Glucose POC Glucose 112 H Lactic Acid Calcium Phosphorus Magnesium AST ALT 59 H Lactate Dehydrogenase CK-MB (CK-2) C-Reactive Protein NT-Pro-B Natriuret Pep Total Protein 5.8 L Albumin 2.6 L Arterial Blood Glucose Urine WBC (Auto) 01/05/20 01/06/20 01/06/20 16:04 00:23 04:44 WBC RBC 3.36 L Hgb 8.9 L Hct 28.7 L MCHC 31 L RDW 16.9 H MCV MCH 26 L Lymph % (Auto) [place] % (Auto) 9.4 H [place] # Eos # Lymph # (Auto) [place] # (Auto) Eos # (Auto) Seg Neutrophils % Seg Neuts % (Manual) Baso # (Auto) Lymphocytes % (Manual) Monocytes % (Manual) Eosinophils % (Manual) Basophils % (Manual) Seg Neutrophils # Seg Neutrophils # Man Lymphocytes # (Manual) Monocytes # (Manual) Eosinophils # (Manual) Nucleated RBC % Basophils # (Manual) PT INR APTT Heparin Anti-Xa Level ABG pH POC ABG pO2 ABG pO2 ABG HCO3 ABG O2 Saturation ABG Base Excess POC ABG pCO2 ABG Hemoglobin ABG Oxyhemoglobin ABG Glucose Oxyhemoglobin Sodium 151 H Potassium 3.2 L Chloride Carbon Dioxide 34 H BUN Creatinine 0.6 L Glucose POC Glucose 107 H Lactic Acid Calcium Phosphorus Magnesium AST ALT Lactate Dehydrogenase CK-MB (CK-2) C-Reactive Protein NT-Pro-B Natriuret Pep Total Protein Albumin Arterial Blood Glucose Urine WBC (Auto) 01/06/20 01/06/20 01/06/20 04:44 05:33 12:04 WBC RBC Hgb Hct MCHC RDW MCV MCH Lymph % (Auto) [place] % (Auto) [place] # Eos # Lymph # (Auto) [place] # (Auto) Eos # (Auto) Seg Neutrophils % Seg Neuts % (Manual) Baso # (Auto) Lymphocytes % (Manual) Monocytes % (Manual) Eosinophils % (Manual) Basophils % (Manual) Seg Neutrophils # Seg Neutrophils # Man Lymphocytes # (Manual) Monocytes # (Manual) Eosinophils # (Manual) Nucleated RBC % Basophils # (Manual) PT INR APTT Heparin Anti-Xa Level ABG pH POC ABG pO2 ABG pO2 ABG HCO3 ABG O2 Saturation ABG Base Excess POC ABG pCO2 ABG Hemoglobin ABG Oxyhemoglobin ABG Glucose Oxyhemoglobin Sodium 151 H Potassium 3.4 L Chloride Carbon Dioxide 33 H BUN Creatinine 0.6 L Glucose 118 H POC Glucose 118 H 123 H Lactic Acid Calcium Phosphorus Magnesium AST ALT Lactate Dehydrogenase CK-MB (CK-2) C-Reactive Protein NT-Pro-B Natriuret Pep Total Protein 6.2 L Albumin 2.6 L Arterial Blood Glucose Urine WBC (Auto) 01/06/20 01/07/20 01/07/20 17:54 00:06 04:10 WBC RBC 3.42 L Hgb 8.9 L Hct 29.0 L MCHC 31 L RDW 17.1 H MCV MCH 26 L Lymph % (Auto) [place] % (Auto) 8.4 H [place] # Eos # Lymph # (Auto) [place] # (Auto) Eos # (Auto) Seg Neutrophils % Seg Neuts % (Manual) Baso # (Auto) Lymphocytes % (Manual) Monocytes % (Manual) Eosinophils % (Manual) Basophils % (Manual) Seg Neutrophils # Seg Neutrophils # Man Lymphocytes # (Manual) Monocytes # (Manual) Eosinophils # (Manual) Nucleated RBC % Basophils # (Manual) PT INR APTT Heparin Anti-Xa Level ABG pH POC ABG pO2 ABG pO2 ABG HCO3 ABG O2 Saturation ABG Base Excess POC ABG pCO2 ABG Hemoglobin ABG Oxyhemoglobin ABG Glucose Oxyhemoglobin Sodium Potassium Chloride Carbon Dioxide BUN Creatinine Glucose POC Glucose 112 H 126 H Lactic Acid Calcium Phosphorus Magnesium AST ALT Lactate Dehydrogenase CK-MB (CK-2) C-Reactive Protein NT-Pro-B Natriuret Pep Total Protein Albumin Arterial Blood Glucose Urine WBC (Auto) 01/07/20 01/07/20 01/07/20 04:10 05:59 12:27 WBC RBC Hgb Hct MCHC RDW MCV MCH Lymph % (Auto) [place] % (Auto) [place] # Eos # Lymph # (Auto) [place] # (Auto) Eos # (Auto) Seg Neutrophils % Seg Neuts % (Manual) Baso # (Auto) Lymphocytes % (Manual) Monocytes % (Manual) Eosinophils % (Manual) Basophils % (Manual) Seg Neutrophils # Seg Neutrophils # Man Lymphocytes # (Manual) Monocytes # (Manual) Eosinophils # (Manual) Nucleated RBC % Basophils # (Manual) PT INR APTT Heparin Anti-Xa Level ABG pH POC ABG pO2 ABG pO2 ABG HCO3 ABG O2 Saturation ABG Base Excess POC ABG pCO2 ABG Hemoglobin ABG Oxyhemoglobin ABG Glucose Oxyhemoglobin Sodium 153 H Potassium 3.5 L Chloride Carbon Dioxide 34 H BUN Creatinine 0.6 L Glucose 121 H POC Glucose 121 H 126 H Lactic Acid Calcium Phosphorus Magnesium AST ALT Lactate Dehydrogenase CK-MB (CK-2) C-Reactive Protein NT-Pro-B Natriuret Pep Total Protein 5.9 L Albumin 2.4 L Arterial Blood Glucose Urine WBC (Auto) 01/07/20 01/08/20 01/08/20 18:12 00:03 05:41 WBC RBC Hgb Hct MCHC RDW MCV MCH Lymph % (Auto) [place] % (Auto) [place] # Eos # Lymph # (Auto) [place] # (Auto) Eos # (Auto) Seg Neutrophils % Seg Neuts % (Manual) Baso # (Auto) Lymphocytes % (Manual) Monocytes % (Manual) Eosinophils % (Manual) Basophils % (Manual) Seg Neutrophils # Seg Neutrophils # Man Lymphocytes # (Manual) Monocytes # (Manual) Eosinophils # (Manual) Nucleated RBC % Basophils # (Manual) PT INR APTT Heparin Anti-Xa Level ABG pH POC ABG pO2 ABG pO2 ABG HCO3 ABG O2 Saturation ABG Base Excess POC ABG pCO2 ABG Hemoglobin ABG Oxyhemoglobin ABG Glucose Oxyhemoglobin Sodium Potassium Chloride Carbon Dioxide BUN Creatinine Glucose POC Glucose 124 H 130 H 138 H Lactic Acid Calcium Phosphorus Magnesium AST ALT Lactate Dehydrogenase CK-MB (CK-2) C-Reactive Protein NT-Pro-B Natriuret Pep Total Protein Albumin Arterial Blood Glucose Urine WBC (Auto) 01/08/20 01/08/20 01/08/20 09:28 11:42 18:21 WBC RBC Hgb Hct MCHC RDW MCV MCH Lymph % (Auto) [place] % (Auto) [place] # Eos # Lymph # (Auto) [place] # (Auto) Eos # (Auto) Seg Neutrophils % Seg Neuts % (Manual) Baso # (Auto) Lymphocytes % (Manual) Monocytes % (Manual) Eosinophils % (Manual) Basophils % (Manual) Seg Neutrophils # Seg Neutrophils # Man Lymphocytes # (Manual) Monocytes # (Manual) Eosinophils # (Manual) Nucleated RBC % Basophils # (Manual) PT INR APTT Heparin Anti-Xa Level ABG pH POC ABG pO2 ABG pO2 ABG HCO3 ABG O2 Saturation ABG Base Excess POC ABG pCO2 ABG Hemoglobin ABG Oxyhemoglobin ABG Glucose Oxyhemoglobin Sodium Potassium Chloride Carbon Dioxide BUN Creatinine Glucose POC Glucose 181 H 150 H 129 H Lactic Acid Calcium Phosphorus Magnesium AST ALT Lactate Dehydrogenase CK-MB (CK-2) C-Reactive Protein NT-Pro-B Natriuret Pep Total Protein Albumin Arterial Blood Glucose Urine WBC (Auto) 01/08/20 01/08/20 01/09/20 19:25 23:55 04:11 WBC RBC 3.43 L Hgb 8.9 L Hct 28.7 L MCHC 31 L RDW 17.6 H MCV MCH 26 L Lymph % (Auto) [place] % (Auto) 8.6 H [place] # Eos # Lymph # (Auto) [place] # (Auto) Eos # (Auto) Seg Neutrophils % Seg Neuts % (Manual) Baso # (Auto) Lymphocytes % (Manual) Monocytes % (Manual) Eosinophils % (Manual) Basophils % (Manual) Seg Neutrophils # Seg Neutrophils # Man Lymphocytes # (Manual) Monocytes # (Manual) Eosinophils # (Manual) Nucleated RBC % Basophils # (Manual) PT INR APTT Heparin Anti-Xa Level ABG pH POC ABG pO2 ABG pO2 ABG HCO3 ABG O2 Saturation ABG Base Excess POC ABG pCO2 ABG Hemoglobin ABG Oxyhemoglobin ABG Glucose Oxyhemoglobin Sodium Potassium Chloride Carbon Dioxide BUN Creatinine 0.7 L Glucose 117 H POC Glucose 132 H Lactic Acid Calcium Phosphorus Magnesium AST ALT Lactate Dehydrogenase CK-MB (CK-2) C-Reactive Protein NT-Pro-B Natriuret Pep Total Protein Albumin Arterial Blood Glucose Urine WBC (Auto) 01/09/20 01/09/20 01/09/20 04:11 05:38 22:58 WBC RBC Hgb Hct MCHC RDW MCV MCH Lymph % (Auto) [place] % (Auto) [place] # Eos # Lymph # (Auto) [place] # (Auto) Eos # (Auto) Seg Neutrophils % Seg Neuts % (Manual) Baso # (Auto) Lymphocytes % (Manual) Monocytes % (Manual) Eosinophils % (Manual) Basophils % (Manual) Seg Neutrophils # Seg Neutrophils # Man Lymphocytes # (Manual) Monocytes # (Manual) Eosinophils # (Manual) Nucleated RBC % Basophils # (Manual) PT INR APTT Heparin Anti-Xa Level ABG pH POC ABG pO2 ABG pO2 ABG HCO3 ABG O2 Saturation ABG Base Excess POC ABG pCO2 ABG Hemoglobin ABG Oxyhemoglobin ABG Glucose Oxyhemoglobin Sodium 147 H Potassium 3.3 L D Chloride Carbon Dioxide 32 H BUN Creatinine 0.6 L Glucose 106 H POC Glucose 107 H 113 H Lactic Acid Calcium Phosphorus Magnesium AST ALT Lactate Dehydrogenase CK-MB (CK-2) C-Reactive Protein NT-Pro-B Natriuret Pep Total Protein Albumin Arterial Blood Glucose Urine WBC (Auto) 01/10/20 01/10/20 01/10/20 04:05 11:36 17:54 WBC RBC Hgb Hct MCHC RDW MCV MCH Lymph % (Auto) Floyd % (Auto) Floyd # Eos # Lymph # (Auto) Floyd # (Auto) Eos # (Auto) Seg Neutrophils % Seg Neuts % (Manual) Baso # (Auto) Lymphocytes % (Manual) Monocytes % (Manual) Eosinophils % (Manual) Basophils % (Manual) Seg Neutrophils # Seg Neutrophils # Man Lymphocytes # (Manual) Monocytes # (Manual) Eosinophils # (Manual) Nucleated RBC % Basophils # (Manual) PT INR APTT Heparin Anti-Xa Level ABG pH POC ABG pO2 ABG pO2 ABG HCO3 ABG O2 Saturation ABG Base Excess POC ABG pCO2 ABG Hemoglobin ABG Oxyhemoglobin ABG Glucose Oxyhemoglobin Sodium Potassium Chloride Carbon Dioxide BUN Creatinine 0.7 L Glucose 110 H POC Glucose 129 H 117 H Lactic Acid Calcium Phosphorus Magnesium AST ALT Lactate Dehydrogenase CK-MB (CK-2) C-Reactive Protein NT-Pro-B Natriuret Pep Total Protein Albumin Arterial Blood Glucose Urine WBC (Auto) 01/10/20 01/11/20 01/11/20 23:52 03:19 12:09 WBC RBC Hgb Hct MCHC RDW MCV MCH Lymph % (Auto) Floyd % (Auto) Floyd # Eos # Lymph # (Auto) [place] # (Auto) Eos # (Auto) Seg Neutrophils % Seg Neuts % (Manual) Baso # (Auto) Lymphocytes % (Manual) Monocytes % (Manual) Eosinophils % (Manual) Basophils % (Manual) Seg Neutrophils # Seg Neutrophils # Man Lymphocytes # (Manual) Monocytes # (Manual) Eosinophils # (Manual) Nucleated RBC % Basophils # (Manual) PT INR APTT Heparin Anti-Xa Level ABG pH POC ABG pO2 ABG pO2 ABG HCO3 ABG O2 Saturation ABG Base Excess POC ABG pCO2 ABG Hemoglobin ABG Oxyhemoglobin ABG Glucose Oxyhemoglobin Sodium Potassium Chloride Carbon Dioxide BUN Creatinine Glucose POC Glucose 117 H 136 H 115 H Lactic Acid Calcium Phosphorus Magnesium AST ALT Lactate Dehydrogenase CK-MB (CK-2) C-Reactive Protein NT-Pro-B Natriuret Pep Total Protein Albumin Arterial Blood Glucose Urine WBC (Auto) 01/11/20 01/11/20 01/12/20 18:27 23:28 00:23 WBC RBC Hgb 9.8 L Hct 31.6 L MCHC 31 L RDW 17.8 H MCV 83 L MCH 26 L Lymph % (Auto) Floyd % (Auto) 8.0 H Floyd # Eos # Lymph # (Auto) [place] # (Auto) Eos # (Auto) Seg Neutrophils % Seg Neuts % (Manual) Baso # (Auto) Lymphocytes % (Manual) Monocytes % (Manual) Eosinophils % (Manual) Basophils % (Manual) Seg Neutrophils # Seg Neutrophils # Man Lymphocytes # (Manual) Monocytes # (Manual) Eosinophils # (Manual) Nucleated RBC % Basophils # (Manual) PT INR APTT Heparin Anti-Xa Level ABG pH POC ABG pO2 ABG pO2 ABG HCO3 ABG O2 Saturation ABG Base Excess POC ABG pCO2 ABG Hemoglobin ABG Oxyhemoglobin ABG Glucose Oxyhemoglobin Sodium Potassium Chloride Carbon Dioxide BUN Creatinine Glucose POC Glucose 118 H 122 H Lactic Acid Calcium Phosphorus Magnesium AST ALT Lactate Dehydrogenase CK-MB (CK-2) C-Reactive Protein NT-Pro-B Natriuret Pep Total Protein Albumin Arterial Blood Glucose Urine WBC (Auto) 01/12/20 01/12/20 01/12/20 00:23 04:18 04:18 WBC RBC Hgb 9.6 L Hct 30.9 L MCHC 31 L RDW 17.3 H MCV 81 L MCH 25 L Lymph % (Auto) [place] % (Auto) Floyd # Eos # Lymph # (Auto) [place] # (Auto) Eos # (Auto) Seg Neutrophils % Seg Neuts % (Manual) Baso # (Auto) Lymphocytes % (Manual) Monocytes % (Manual) Eosinophils % (Manual) Basophils % (Manual) Seg Neutrophils # Seg Neutrophils # Man Lymphocytes # (Manual) Monocytes # (Manual) Eosinophils # (Manual) Nucleated RBC % Basophils # (Manual) PT INR APTT Heparin Anti-Xa Level ABG pH POC ABG pO2 ABG pO2 ABG HCO3 ABG O2 Saturation ABG Base Excess POC ABG pCO2 ABG Hemoglobin ABG Oxyhemoglobin ABG Glucose Oxyhemoglobin Sodium Potassium Chloride Carbon Dioxide BUN Creatinine 0.7 L 0.7 L Glucose 111 H 108 H POC Glucose Lactic Acid Calcium Phosphorus Magnesium AST ALT Lactate Dehydrogenase CK-MB (CK-2) C-Reactive Protein NT-Pro-B Natriuret Pep Total Protein Albumin 2.6 L Arterial Blood Glucose Urine WBC (Auto) 01/12/20 01/12/20 01/12/20 06:03 12:27 13:58 WBC RBC Hgb Hct MCHC RDW MCV MCH Lymph % (Auto) [place] % (Auto) [place] # Eos # Lymph # (Auto) [place] # (Auto) Eos # (Auto) Seg Neutrophils % Seg Neuts % (Manual) Baso # (Auto) Lymphocytes % (Manual) Monocytes % (Manual) Eosinophils % (Manual) Basophils % (Manual) Seg Neutrophils # Seg Neutrophils # Man Lymphocytes # (Manual) Monocytes # (Manual) Eosinophils # (Manual) Nucleated RBC % Basophils # (Manual) PT INR APTT Heparin Anti-Xa Level ABG pH 7.453 H POC ABG pO2 76.6 L ABG pO2 ABG HCO3 ABG O2 Saturation ABG Base Excess POC ABG pCO2 ABG Hemoglobin 10.3 L ABG Oxyhemoglobin ABG Glucose 99 H Oxyhemoglobin Sodium Potassium Chloride Carbon Dioxide BUN Creatinine Glucose POC Glucose 128 H 121 H Lactic Acid Calcium Phosphorus Magnesium AST ALT Lactate Dehydrogenase CK-MB (CK-2) C-Reactive Protein NT-Pro-B Natriuret Pep Total Protein Albumin Arterial Blood Glucose 99 H Urine WBC (Auto) 01/12/20 01/13/20 01/13/20 18:24 12:01 17:46 WBC RBC Hgb Hct MCHC RDW MCV MCH Lymph % (Auto) [place] % (Auto) [place] # Eos # Lymph # (Auto) [place] # (Auto) Eos # (Auto) Seg Neutrophils % Seg Neuts % (Manual) Baso # (Auto) Lymphocytes % (Manual) Monocytes % (Manual) Eosinophils % (Manual) Basophils % (Manual) Seg Neutrophils # Seg Neutrophils # Man Lymphocytes # (Manual) Monocytes # (Manual) Eosinophils # (Manual) Nucleated RBC % Basophils # (Manual) PT INR APTT Heparin Anti-Xa Level ABG pH POC ABG pO2 ABG pO2 ABG HCO3 ABG O2 Saturation ABG Base Excess POC ABG pCO2 ABG Hemoglobin ABG Oxyhemoglobin ABG Glucose Oxyhemoglobin Sodium Potassium Chloride Carbon Dioxide BUN Creatinine Glucose POC Glucose 119 H 107 H 124 H Lactic Acid Calcium Phosphorus Magnesium AST ALT Lactate Dehydrogenase CK-MB (CK-2) C-Reactive Protein NT-Pro-B Natriuret Pep Total Protein Albumin Arterial Blood Glucose Urine WBC (Auto) 01/13/20 01/14/20 01/14/20 20:40 00:10 05:33 WBC RBC Hgb Hct MCHC RDW MCV MCH Lymph % (Auto) [place] % (Auto) [place] # Eos # Lymph # (Auto) [place] # (Auto) Eos # (Auto) Seg Neutrophils % Seg Neuts % (Manual) Baso # (Auto) Lymphocytes % (Manual) Monocytes % (Manual) Eosinophils % (Manual) Basophils % (Manual) Seg Neutrophils # Seg Neutrophils # Man Lymphocytes # (Manual) Monocytes # (Manual) Eosinophils # (Manual) Nucleated RBC % Basophils # (Manual) PT INR APTT Heparin Anti-Xa Level ABG pH POC ABG pO2 ABG pO2 65.3 L ABG HCO3 31.8 H ABG O2 Saturation 93.5 L ABG Base Excess 6.7 H POC ABG pCO2 ABG Hemoglobin 13.3 L ABG Oxyhemoglobin ABG Glucose Oxyhemoglobin 90.9 L Sodium Potassium Chloride Carbon Dioxide BUN Creatinine Glucose POC Glucose 111 H 111 H Lactic Acid Calcium Phosphorus Magnesium AST ALT Lactate Dehydrogenase CK-MB (CK-2) C-Reactive Protein NT-Pro-B Natriuret Pep Total Protein Albumin Arterial Blood Glucose Urine WBC (Auto) 01/14/20 01/14/20 01/14/20 12:10 16:14 16:14 WBC RBC Hgb 10.6 L Hct 34.2 L MCHC 31 L RDW 18.3 H MCV 83 L MCH 26 L Lymph % (Auto) [place] % (Auto) 7.4 H [place] # Eos # Lymph # (Auto) [place] # (Auto) Eos # (Auto) Seg Neutrophils % 71.9 H Seg Neuts % (Manual) Baso # (Auto) Lymphocytes % (Manual) Monocytes % (Manual) Eosinophils % (Manual) Basophils % (Manual) Seg Neutrophils # Seg Neutrophils # Man Lymphocytes # (Manual) Monocytes # (Manual) Eosinophils # (Manual) Nucleated RBC % Basophils # (Manual) PT INR APTT Heparin Anti-Xa Level ABG pH POC ABG pO2 ABG pO2 ABG HCO3 ABG O2 Saturation ABG Base Excess POC ABG pCO2 ABG Hemoglobin ABG Oxyhemoglobin ABG Glucose Oxyhemoglobin Sodium Potassium Chloride Carbon Dioxide 31 H BUN Creatinine 0.6 L Glucose 131 H POC Glucose 139 H Lactic Acid Calcium Phosphorus Magnesium AST ALT Lactate Dehydrogenase CK-MB (CK-2) C-Reactive Protein NT-Pro-B Natriuret Pep Total Protein Albumin Arterial Blood Glucose Urine WBC (Auto) 01/14/20 01/15/20 01/15/20 18:05 00:52 05:35 WBC RBC Hgb Hct MCHC RDW MCV MCH Lymph % (Auto) [place] % (Auto) [place] # Eos # Lymph # (Auto) [place] # (Auto) Eos # (Auto) Seg Neutrophils % Seg Neuts % (Manual) Baso # (Auto) Lymphocytes % (Manual) Monocytes % (Manual) Eosinophils % (Manual) Basophils % (Manual) Seg Neutrophils # Seg Neutrophils # Man Lymphocytes # (Manual) Monocytes # (Manual) Eosinophils # (Manual) Nucleated RBC % Basophils # (Manual) PT INR APTT Heparin Anti-Xa Level ABG pH POC ABG pO2 ABG pO2 ABG HCO3 ABG O2 Saturation ABG Base Excess POC ABG pCO2 ABG Hemoglobin ABG Oxyhemoglobin ABG Glucose Oxyhemoglobin Sodium Potassium Chloride Carbon Dioxide BUN Creatinine Glucose POC Glucose 147 H 140 H 159 H Lactic Acid Calcium Phosphorus Magnesium AST ALT Lactate Dehydrogenase CK-MB (CK-2) C-Reactive Protein NT-Pro-B Natriuret Pep Total Protein Albumin Arterial Blood Glucose Urine WBC (Auto) 01/15/20 01/15/20 01/16/20 12:52 17:43 00:32 WBC RBC Hgb Hct MCHC RDW MCV MCH Lymph % (Auto) [place] % (Auto) [place] # Eos # Lymph # (Auto) [place] # (Auto) Eos # (Auto) Seg Neutrophils % Seg Neuts % (Manual) Baso # (Auto) Lymphocytes % (Manual) Monocytes % (Manual) Eosinophils % (Manual) Basophils % (Manual) Seg Neutrophils # Seg Neutrophils # Man Lymphocytes # (Manual) Monocytes # (Manual) Eosinophils # (Manual) Nucleated RBC % Basophils # (Manual) PT INR APTT Heparin Anti-Xa Level ABG pH POC ABG pO2 ABG pO2 ABG HCO3 ABG O2 Saturation ABG Base Excess POC ABG pCO2 ABG Hemoglobin ABG Oxyhemoglobin ABG Glucose Oxyhemoglobin Sodium Potassium Chloride Carbon Dioxide BUN Creatinine Glucose POC Glucose 164 H 167 H 153 H Lactic Acid Calcium Phosphorus Magnesium AST ALT Lactate Dehydrogenase CK-MB (CK-2) C-Reactive Protein NT-Pro-B Natriuret Pep Total Protein Albumin Arterial Blood Glucose Urine WBC (Auto) 01/16/20 01/16/20 01/17/20 05:46 11:48 06:38 WBC RBC Hgb Hct MCHC RDW MCV MCH Lymph % (Auto) [place] % (Auto) [place] # Eos # Lymph # (Auto) [place] # (Auto) Eos # (Auto) Seg Neutrophils % Seg Neuts % (Manual) Baso # (Auto) Lymphocytes % (Manual) Monocytes % (Manual) Eosinophils % (Manual) Basophils % (Manual) Seg Neutrophils # Seg Neutrophils # Man Lymphocytes # (Manual) Monocytes # (Manual) Eosinophils # (Manual) Nucleated RBC % Basophils # (Manual) PT INR APTT Heparin Anti-Xa Level ABG pH POC ABG pO2 ABG pO2 ABG HCO3 ABG O2 Saturation ABG Base Excess POC ABG pCO2 ABG Hemoglobin ABG Oxyhemoglobin ABG Glucose Oxyhemoglobin Sodium Potassium Chloride Carbon Dioxide BUN Creatinine Glucose POC Glucose 163 H 155 H 116 H Lactic Acid Calcium Phosphorus Magnesium AST ALT Lactate Dehydrogenase CK-MB (CK-2) C-Reactive Protein NT-Pro-B Natriuret Pep Total Protein Albumin Arterial Blood Glucose Urine WBC (Auto) 01/17/20 01/17/20 01/18/20 11:36 17:43 00:12 WBC RBC Hgb Hct MCHC RDW MCV MCH Lymph % (Auto) [place] % (Auto) [place] # Eos # Lymph # (Auto) [place] # (Auto) Eos # (Auto) Seg Neutrophils % Seg Neuts % (Manual) Baso # (Auto) Lymphocytes % (Manual) Monocytes % (Manual) Eosinophils % (Manual) Basophils % (Manual) Seg Neutrophils # Seg Neutrophils # Man Lymphocytes # (Manual) Monocytes # (Manual) Eosinophils # (Manual) Nucleated RBC % Basophils # (Manual) PT INR APTT Heparin Anti-Xa Level ABG pH POC ABG pO2 ABG pO2 ABG HCO3 ABG O2 Saturation ABG Base Excess POC ABG pCO2 ABG Hemoglobin ABG Oxyhemoglobin ABG Glucose Oxyhemoglobin Sodium Potassium Chloride Carbon Dioxide BUN Creatinine Glucose POC Glucose 110 H 134 H 108 H Lactic Acid Calcium Phosphorus Magnesium AST ALT Lactate Dehydrogenase CK-MB (CK-2) C-Reactive Protein NT-Pro-B Natriuret Pep Total Protein Albumin Arterial Blood Glucose Urine WBC (Auto) 01/18/20 01/18/20 01/18/20 05:37 06:46 06:46 WBC RBC Hgb 10.1 L Hct 32.2 L MCHC 31 L RDW 18.1 H MCV 81 L MCH 25 L Lymph % (Auto) [place] % (Auto) [place] # Eos # Lymph # (Auto) [place] # (Auto) Eos # (Auto) Seg Neutrophils % 71.9 H Seg Neuts % (Manual) Baso # (Auto) Lymphocytes % (Manual) Monocytes % (Manual) Eosinophils % (Manual) Basophils % (Manual) Seg Neutrophils # Seg Neutrophils # Man Lymphocytes # (Manual) Monocytes # (Manual) Eosinophils # (Manual) Nucleated RBC % Basophils # (Manual) PT INR APTT Heparin Anti-Xa Level ABG pH POC ABG pO2 ABG pO2 ABG HCO3 ABG O2 Saturation ABG Base Excess POC ABG pCO2 ABG Hemoglobin ABG Oxyhemoglobin ABG Glucose Oxyhemoglobin Sodium Potassium Chloride Carbon Dioxide BUN Creatinine 0.7 L Glucose 155 H POC Glucose 168 H Lactic Acid Calcium Phosphorus Magnesium AST ALT Lactate Dehydrogenase CK-MB (CK-2) C-Reactive Protein NT-Pro-B Natriuret Pep Total Protein Albumin Arterial Blood Glucose Urine WBC (Auto) 01/18/20 01/18/20 01/18/20 12:05 17:14 23:28 WBC RBC Hgb Hct MCHC RDW MCV MCH Lymph % (Auto) [place] % (Auto) [place] # Eos # Lymph # (Auto) [place] # (Auto) Eos # (Auto) Seg Neutrophils % Seg Neuts % (Manual) Baso # (Auto) Lymphocytes % (Manual) Monocytes % (Manual) Eosinophils % (Manual) Basophils % (Manual) Seg Neutrophils # Seg Neutrophils # Man Lymphocytes # (Manual) Monocytes # (Manual) Eosinophils # (Manual) Nucleated RBC % Basophils # (Manual) PT INR APTT Heparin Anti-Xa Level ABG pH POC ABG pO2 ABG pO2 ABG HCO3 ABG O2 Saturation ABG Base Excess POC ABG pCO2 ABG Hemoglobin ABG Oxyhemoglobin ABG Glucose Oxyhemoglobin Sodium Potassium Chloride Carbon Dioxide BUN Creatinine Glucose POC Glucose 128 H 126 H 128 H Lactic Acid Calcium Phosphorus Magnesium AST ALT Lactate Dehydrogenase CK-MB (CK-2) C-Reactive Protein NT-Pro-B Natriuret Pep Total Protein Albumin Arterial Blood Glucose Urine WBC (Auto) 01/19/20 01/19/20 01/19/20 05:39 12:33 17:36 WBC RBC Hgb Hct MCHC RDW MCV MCH Lymph % (Auto) [place] % (Auto) [place] # Eos # Lymph # (Auto) [place] # (Auto) Eos # (Auto) Seg Neutrophils % Seg Neuts % (Manual) Baso # (Auto) Lymphocytes % (Manual) Monocytes % (Manual) Eosinophils % (Manual) Basophils % (Manual) Seg Neutrophils # Seg Neutrophils # Man Lymphocytes # (Manual) Monocytes # (Manual) Eosinophils # (Manual) Nucleated RBC % Basophils # (Manual) PT INR APTT Heparin Anti-Xa Level ABG pH POC ABG pO2 ABG pO2 ABG HCO3 ABG O2 Saturation ABG Base Excess POC ABG pCO2 ABG Hemoglobin ABG Oxyhemoglobin ABG Glucose Oxyhemoglobin Sodium Potassium Chloride Carbon Dioxide BUN Creatinine Glucose POC Glucose 164 H 171 H 152 H Lactic Acid Calcium Phosphorus Magnesium AST ALT Lactate Dehydrogenase CK-MB (CK-2) C-Reactive Protein NT-Pro-B Natriuret Pep Total Protein Albumin Arterial Blood Glucose Urine WBC (Auto) 01/20/20 01/20/20 01/20/20 00:12 05:20 05:35 WBC RBC Hgb 9.2 L Hct 29.4 L MCHC 31 L RDW 17.9 H MCV 81 L MCH 25 L Lymph % (Auto) [place] % (Auto) [place] # Eos # Lymph # (Auto) [place] # (Auto) Eos # (Auto) Seg Neutrophils % Seg Neuts % (Manual) Baso # (Auto) Lymphocytes % (Manual) Monocytes % (Manual) Eosinophils % (Manual) Basophils % (Manual) Seg Neutrophils # Seg Neutrophils # Man Lymphocytes # (Manual) Monocytes # (Manual) Eosinophils # (Manual) Nucleated RBC % Basophils # (Manual) PT INR APTT Heparin Anti-Xa Level ABG pH POC ABG pO2 ABG pO2 ABG HCO3 ABG O2 Saturation ABG Base Excess POC ABG pCO2 ABG Hemoglobin ABG Oxyhemoglobin ABG Glucose Oxyhemoglobin Sodium Potassium Chloride Carbon Dioxide BUN Creatinine Glucose POC Glucose 120 H 136 H Lactic Acid Calcium Phosphorus Magnesium AST ALT Lactate Dehydrogenase CK-MB (CK-2) C-Reactive Protein NT-Pro-B Natriuret Pep Total Protein Albumin Arterial Blood Glucose Urine WBC (Auto) 01/20/20 01/20/20 01/20/20 05:40 11:58 14:55 WBC RBC Hgb 9.0 L Hct 28.3 L MCHC RDW MCV MCH Lymph % (Auto) [place] % (Auto) [place] # Eos # Lymph # (Auto) [place] # (Auto) Eos # (Auto) Seg Neutrophils % Seg Neuts % (Manual) Baso # (Auto) Lymphocytes % (Manual) Monocytes % (Manual) Eosinophils % (Manual) Basophils % (Manual) Seg Neutrophils # Seg Neutrophils # Man Lymphocytes # (Manual) Monocytes # (Manual) Eosinophils # (Manual) Nucleated RBC % Basophils # (Manual) PT INR APTT Heparin Anti-Xa Level ABG pH POC ABG pO2 ABG pO2 ABG HCO3 ABG O2 Saturation ABG Base Excess POC ABG pCO2 ABG Hemoglobin ABG Oxyhemoglobin ABG Glucose Oxyhemoglobin Sodium Potassium Chloride Carbon Dioxide 32 H BUN 22 H Creatinine 0.7 L Glucose 128 H POC Glucose 152 H Lactic Acid Calcium Phosphorus Magnesium AST ALT Lactate Dehydrogenase CK-MB (CK-2) C-Reactive Protein NT-Pro-B Natriuret Pep Total Protein Albumin Arterial Blood Glucose Urine WBC (Auto) 01/20/20 01/20/20 01/20/20 14:55 18:14 21:35 WBC RBC Hgb Hct MCHC RDW MCV MCH Lymph % (Auto) [place] % (Auto) [place] # Eos # Lymph # (Auto) [place] # (Auto) Eos # (Auto) Seg Neutrophils % Seg Neuts % (Manual) Baso # (Auto) Lymphocytes % (Manual) Monocytes % (Manual) Eosinophils % (Manual) Basophils % (Manual) Seg Neutrophils # Seg Neutrophils # Man Lymphocytes # (Manual) Monocytes # (Manual) Eosinophils # (Manual) Nucleated RBC % Basophils # (Manual) PT 20.4 H INR 1.72 H APTT 40.6 H Heparin Anti-Xa Level > 2.00 H ABG pH POC ABG pO2 ABG pO2 ABG HCO3 ABG O2 Saturation ABG Base Excess POC ABG pCO2 ABG Hemoglobin ABG Oxyhemoglobin ABG Glucose Oxyhemoglobin Sodium Potassium Chloride Carbon Dioxide BUN Creatinine Glucose POC Glucose 150 H Lactic Acid Calcium Phosphorus Magnesium AST ALT Lactate Dehydrogenase CK-MB (CK-2) C-Reactive Protein NT-Pro-B Natriuret Pep Total Protein Albumin Arterial Blood Glucose Urine WBC (Auto) 01/21/20 01/21/20 01/21/20 00:30 05:47 05:59 WBC RBC Hgb Hct MCHC RDW MCV MCH Lymph % (Auto) [place] % (Auto) [place] # Eos # Lymph # (Auto) [place] # (Auto) Eos # (Auto) Seg Neutrophils % Seg Neuts % (Manual) Baso # (Auto) Lymphocytes % (Manual) Monocytes % (Manual) Eosinophils % (Manual) Basophils % (Manual) Seg Neutrophils # Seg Neutrophils # Man Lymphocytes # (Manual) Monocytes # (Manual) Eosinophils # (Manual) Nucleated RBC % Basophils # (Manual) PT INR APTT Heparin Anti-Xa Level 1.93 H ABG pH POC ABG pO2 ABG pO2 ABG HCO3 ABG O2 Saturation ABG Base Excess POC ABG pCO2 ABG Hemoglobin ABG Oxyhemoglobin ABG Glucose Oxyhemoglobin Sodium Potassium Chloride Carbon Dioxide BUN Creatinine Glucose POC Glucose 126 H 148 H Lactic Acid Calcium Phosphorus Magnesium AST ALT Lactate Dehydrogenase CK-MB (CK-2) C-Reactive Protein NT-Pro-B Natriuret Pep Total Protein Albumin Arterial Blood Glucose Urine WBC (Auto) 01/21/20 01/21/20 01/21/20 12:32 18:20 23:54 WBC RBC Hgb Hct MCHC RDW MCV MCH Lymph % (Auto) [place] % (Auto) [place] # Eos # Lymph # (Auto) [place] # (Auto) Eos # (Auto) Seg Neutrophils % Seg Neuts % (Manual) Baso # (Auto) Lymphocytes % (Manual) Monocytes % (Manual) Eosinophils % (Manual) Basophils % (Manual) Seg Neutrophils # Seg Neutrophils # Man Lymphocytes # (Manual) Monocytes # (Manual) Eosinophils # (Manual) Nucleated RBC % Basophils # (Manual) PT INR APTT Heparin Anti-Xa Level 1.28 H ABG pH POC ABG pO2 ABG pO2 ABG HCO3 ABG O2 Saturation ABG Base Excess POC ABG pCO2 ABG Hemoglobin ABG Oxyhemoglobin ABG Glucose Oxyhemoglobin Sodium Potassium Chloride Carbon Dioxide BUN Creatinine Glucose POC Glucose 112 H 146 H Lactic Acid Calcium Phosphorus Magnesium AST ALT Lactate Dehydrogenase CK-MB (CK-2) C-Reactive Protein NT-Pro-B Natriuret Pep Total Protein Albumin Arterial Blood Glucose Urine WBC (Auto) 01/22/20 01/22/20 01/22/20 04:45 04:45 05:48 WBC RBC Hgb 9.3 L Hct 29.0 L MCHC RDW MCV MCH Lymph % (Auto) [place] % (Auto) [place] # Eos # Lymph # (Auto) [place] # (Auto) Eos # (Auto) Seg Neutrophils % Seg Neuts % (Manual) Baso # (Auto) Lymphocytes % (Manual) Monocytes % (Manual) Eosinophils % (Manual) Basophils % (Manual) Seg Neutrophils # Seg Neutrophils # Man Lymphocytes # (Manual) Monocytes # (Manual) Eosinophils # (Manual) Nucleated RBC % Basophils # (Manual) PT INR APTT Heparin Anti-Xa Level 1.34 H ABG pH POC ABG pO2 ABG pO2 ABG HCO3 ABG O2 Saturation ABG Base Excess POC ABG pCO2 ABG Hemoglobin ABG Oxyhemoglobin ABG Glucose Oxyhemoglobin Sodium Potassium Chloride Carbon Dioxide BUN Creatinine Glucose POC Glucose 142 H Lactic Acid Calcium Phosphorus Magnesium AST ALT Lactate Dehydrogenase CK-MB (CK-2) C-Reactive Protein NT-Pro-B Natriuret Pep Total Protein Albumin Arterial Blood Glucose Urine WBC (Auto) 01/22/20 01/22/20 01/22/20 08:09 08:22 09:58 WBC RBC Hgb Hct MCHC RDW MCV MCH Lymph % (Auto) [place] % (Auto) [place] # Eos # Lymph # (Auto) [place] # (Auto) Eos # (Auto) Seg Neutrophils % Seg Neuts % (Manual) Baso # (Auto) Lymphocytes % (Manual) Monocytes % (Manual) Eosinophils % (Manual) Basophils % (Manual) Seg Neutrophils # Seg Neutrophils # Man Lymphocytes # (Manual) Monocytes # (Manual) Eosinophils # (Manual) Nucleated RBC % Basophils # (Manual) PT 16.9 H INR 1.34 H APTT Heparin Anti-Xa Level ABG pH POC ABG pO2 ABG pO2 ABG HCO3 ABG O2 Saturation ABG Base Excess POC ABG pCO2 ABG Hemoglobin ABG Oxyhemoglobin ABG Glucose Oxyhemoglobin Sodium Potassium Chloride 97.8 L Carbon Dioxide BUN 29 H Creatinine Glucose 128 H POC Glucose 131 H Lactic Acid Calcium Phosphorus Magnesium AST ALT Lactate Dehydrogenase CK-MB (CK-2) C-Reactive Protein NT-Pro-B Natriuret Pep Total Protein Albumin Arterial Blood Glucose Urine WBC (Auto) 01/22/20 01/22/20 01/22/20 12:44 16:13 18:18 WBC RBC Hgb Hct MCHC RDW MCV MCH Lymph % (Auto) [place] % (Auto) [place] # Eos # Lymph # (Auto) [place] # (Auto) Eos # (Auto) Seg Neutrophils % Seg Neuts % (Manual) Baso # (Auto) Lymphocytes % (Manual) Monocytes % (Manual) Eosinophils % (Manual) Basophils % (Manual) Seg Neutrophils # Seg Neutrophils # Man Lymphocytes # (Manual) Monocytes # (Manual) Eosinophils # (Manual) Nucleated RBC % Basophils # (Manual) PT INR APTT Heparin Anti-Xa Level ABG pH POC ABG pO2 ABG pO2 ABG HCO3 ABG O2 Saturation ABG Base Excess POC ABG pCO2 ABG Hemoglobin ABG Oxyhemoglobin ABG Glucose Oxyhemoglobin Sodium Potassium Chloride Carbon Dioxide BUN Creatinine Glucose POC Glucose 156 H 133 H 155 H Lactic Acid Calcium Phosphorus Magnesium AST ALT Lactate Dehydrogenase CK-MB (CK-2) C-Reactive Protein NT-Pro-B Natriuret Pep Total Protein Albumin Arterial Blood Glucose Urine WBC (Auto) 01/22/20 01/23/20 23:22 05:37 WBC RBC Hgb Hct MCHC RDW MCV MCH Lymph % (Auto) [place] % (Auto) [place] # Eos # Lymph # (Auto) [place] # (Auto) Eos # (Auto) Seg Neutrophils % Seg Neuts % (Manual) Baso # (Auto) Lymphocytes % (Manual) Monocytes % (Manual) Eosinophils % (Manual) Basophils % (Manual) Seg Neutrophils # Seg Neutrophils # Man Lymphocytes # (Manual) Monocytes # (Manual) Eosinophils # (Manual) Nucleated RBC % Basophils # (Manual) PT INR APTT Heparin Anti-Xa Level ABG pH POC ABG pO2 ABG pO2 ABG HCO3 ABG O2 Saturation ABG Base Excess POC ABG pCO2 ABG Hemoglobin ABG Oxyhemoglobin ABG Glucose Oxyhemoglobin Sodium Potassium Chloride Carbon Dioxide BUN Creatinine Glucose POC Glucose 148 H 163 H Lactic Acid Calcium Phosphorus Magnesium AST ALT Lactate Dehydrogenase CK-MB (CK-2) C-Reactive Protein NT-Pro-B Natriuret Pep Total Protein Albumin Arterial Blood Glucose Urine WBC (Auto) Chest x-ray: image reviewed Allied health notes reviewed: RT
[2020-01-23] MEDS: POLYETHYLENE GLYCOL 3350 17 GM POWDER PO SCH (21:01)
[2020-01-23] MEDS: TAMSULOSIN 0.4 MG CAP PO SCH (21:02)
[2020-01-24] MEDS: METOPROLOL TARTRATE 25 MG TAB PO SCH ×4 (01:10→20:42)
[2020-01-24] MEDS: LORazepam 2 MG/ML VIAL IV PRN (02:52)
[2020-01-24] MEDS: NITROGLYCERIN 0.4 MG PATCH 24HR TD SCH (05:31)
[2020-01-24] MEDS: FUROSEMIDE 20 MG/2 ML INJ IV SCH ×2 (05:32→17:40)
[2020-01-24 05:43] LABS: Basophils # (Auto) 0.1 K/mm3 (0.0-0.1); Basophils % (Auto) 1.3 % (0.0-1.8); Eosinophils # (Auto) 0.3 K/mm3 (0.0-0.4); Eosinophils % (Auto) 4.1 % (0.0-4.3); Hematocrit 27.8 % (35.5-45.6); Hemoglobin 8.8 gm/dl (11.8-15.2); Lymphocytes # (Auto) 1.5 K/mm3 (1.2-5.4); Lymphocytes % (Auto) 21.2 % (13.4-35.0); Mean Corpuscular HGB Conc 32 % (32-34); Mean Corpuscular Volume 81 fl (84-94); Monocytes # (Auto) 0.5 K/mm3 (0.0-0.8); Monocytes % (Auto) 7.8 % (0.0-7.3); Platelet Count 270 K/mm3 (140-440); Red Blood Count 3.46 M/mm3 (3.65-5.03); Red Cell Distribution Width 18.2 % (13.2-15.2)
[2020-01-24 06:06] LABS: BUN/Creatinine Ratio 39; Blood Urea Nitrogen 31 mg/dL (9-20); Calcium 9.1 mg/dL (8.4-10.2); Hemolysis Index 0
--- NOTE | 2020-01-24 09:16 | Progress Note ---
Assessment and Plan Assessment and plan: --Intermittent chest pain; Cardiology is following, planning left heart cath tomorrow Continue current cardiac medications --Acute on chronic hypoxemic respiratory failure; Patient has tracheostomy on vent Continue nebulizers, , trach care Wean off ventilator as tolerated Pulmonary critical following --Acute exacerbation of COPD; Patient is currently on ventilatory support Continue nebulizers --Left lower lobe PE; Continue Eliquis, ventilatory support --Acute right lower extremity DVT; Patient is on Eliquis --Bilateral multifocal pneumonia/community-acquired Completed antibiotics, improved --Severe sepsis/bilateral pneumonia: Completed antibiotics COVID-19 test; 11/24/2019; negative 11/26/2019; negative 12/29/2019: Negative --Paroxysmal atrial fibrillation; Now rate controlled, Stable on amiodarone and Eliquis --Acute on chronic diastolic congestive heart failure Continue diuretics, beta-blockers, EF 50 to 55% --H/o CAD [[facility] 12/2018 in-stent restenosis] Patient is stable on current cardiac medications --Hypertensive emergency; present on admission Reasonable blood pressures, continue current antihypertensives As needed medications --History of alcohol abuse/alcohol withdrawal; Was on CIWA protocol, now stable --Oropharyngeal dysphagia; status post PEG placement Continue PEG feeds per protocol --History of partial small bowel obstruction; resolved Surgery evaluated. --Obesity; BMI 34.7 Patient needs weight reduction when medically stable --Severe protein calorie malnutrition/hypoalbuminemia Nutrition supplements, dietitian following, PEG feeds --DVT prophylaxis;Eliquis --Full CODE STATUS 01/05; Pt stable. NGT output 650cc over 24 hours, bilious. No f/c, WBC within normal limits. cont NG suction and cont to hold TF 01/06: Abs series - mild improvement in small bowel distension in mid abdomen, normal gas/stool pattern in colon. NGT in duodenum. Continue to hold tube feeding, maintain NG tube with low intermittent suction. Patient's was updated by phone. Continue to provide supportive care and monitor clinically. 01/07: +BMs today and NGT/PEG output appears more gastric today. Plan to clamp NGT, if tolerates start TF from tomorrow. cont supportive care. 01/08; Gastric output decreased over last 24 hours. NGT has been clamped x 24 hours. plan to dc NGT and to start TTF via PEG - vital HF @10cc/hr 01/09: clinically stable, tolerating TF. monitor BMP, wean off from vent as tolerated clinically stable, on TF. wean off vent as tolerated 01/11: wean off from vent, cont to monitor, on TF 01/12: wean off from vent, cont to monitor, on TF. need placement - unfunded 01/13; remains on ventilatory support, unable to wean, DC planning possible LTA C, unfunded 01/14; patient of ventilatory support, T-piece tracheostomy on oxygen, LTAC placement per case management 01/16; tracheostomy, patient on full ventilatory support, wean off vent support as tolerated, pending LTAC placement, social financial issues 01/17; awaiting LTAC placement, insurance and financial issues 01/18; patient tracheostomy remains on ventilatory support 01/19; wean off ventilator as tolerated 01/20; remains on ventilatory support, patient complains of intermittent chest pain, cardiology recommend left heart catheterization tomorrow 01/22/2020. Patient for left heart catheterization per cardiology. Patient remains on AC mode ventilation rate 12, tidal volume 450, FiO2 30% and PEEP of 6. Continue tracheostomy care, airway management and secretion control. 01/23/2020. Cardiac catheterization completed yesterday revealed widely patent previous LAD stent with mild nonobstructive atherosclerosis of the right mid coronary artery and rest of the coronary system was without significant atherosclerosis. The left ventricle ejection fraction was mildly impaired at 40 to 45%. There was some hypokinesis of the basal inferior wall suggestive of previous or recent infarct. Continue GDMT for coronary artery disease including beta blockers, topical nitrates, statin and Plavix. Continue Eliquis for paroxysmal atrial fibrillation and PE. Continue diuresis with Lasix and follow electrolytes closely. Continue Robinul and scopolamine for secretion control and daily SBT per pulmonary. Also, continue bronchodilators and routine trach care/airway management. T-piece trials per pulmonary as tolerated. 01/24/2020. Recent cardiac catheterization has documented widely patent left anterior descending artery stent with minimal nonobstructive diffuse coronary artery disease in the rest of the coronary arteries. Evidence of ischemic cardiomyopathy with inferior wall hypokinesis. Continue with guideline directed medical therapy. Continue Robinul and scopolamine for secretion control and daily SBT per pulmonary. Continue bronchodilators and routine trach care/airway management. T-piece trials per pulmonary as tolerated. The high probability of a clinically significant, sudden or life threatening deterioration of the [Respiratory, cardiovascular & neurological] system(s) required my full and direct attention, intervention and personal management. The aggregate critical care time was [31] minutes without overlap. Time includes spent on [x] Data Review and interpretation [x] Patient assessment and monitoring of vital signs [x] Documentation [x] Medication orders and management History Interval history: Patient is a 64-year-old male with known history of hypertension, COPD, history of coronary artery disease, CHF with ejection fraction of 20 to 25% in August 2018 presenting to the emergency room via EMS complaining of shortness of breath. Patient was found to be hypoxic and in respiratory distress. Patient was placed on CPAP in route to the hospital. Patient remained hypoxic on CPAP BiPAP ,subsequently was intubated. Work-up in the emergency room including chest x-ray reveals bilateral pneumonia. He had an elevated white count of 14 and also had an elevated BNP. sputum cultures positive for Pseudomonas, ID treated with cefepime and Vanco. His hospital course became complicated with acute PE, DVT, paroxysmal atrial fib - placed on chronic anticoagulation. Patient was difficult to wean off, status post trach and PEG, remains on mechanical ventilation with trach tube. He then developed partial small bowel obstruction valuated by general surgeon symptom improved with medical Mx, patient was briefly weaned off ventilatory support however, was in respiratory failure requiring full ventilatory support. Cardiac catheterization on 01/22/2020. No new issues overnight. Hospitalist Physical - Constitutional Vitals: Temp Pulse Resp BP Pulse Ox 98.1 F 86 21 123/76 96 01/24/20 08:00 01/24/20 08:00 01/24/20 07:00 01/24/20 08:00 01/24/20 08:00 General appearance: Present: well-nourished, obese, other (Tracheostomy on vent) - EENT Eyes: Present: PERRL, EOM intact ENT: hearing intact, clear oral mucosa, dentition normal - Neck Neck: Present: supple, normal ROM - Respiratory Respiratory effort: normal Respiratory: bilateral: CTA - Cardiovascular Rhythm: regular Heart Sounds: Present: S1 & S2. Absent: gallop, rub - Extremities Extremities: no ischemia, No edema, Full ROM - Abdominal General gastrointestinal: soft, non-tender, non-distended, normal bowel sounds - Integumentary Integumentary: Present: clear, warm, dry - Neurologic Neurologic: CNII-XII intact, moves all extremities HEART Score - HEART Score Troponin: Troponin T < 0.010 ng/mL (0.00-0.029) 01/19/20 01:35 Results - Labs CBC & Chem 7: 01/24/20 04:30 01/24/20 04:30 Labs: Laboratory Last Values WBC 7.0 K/mm3 (4.5-11.0) 01/24/20 04:30 RBC 3.46 M/mm3 (3.65-5.03) L 01/24/20 04:30 Hgb 8.8 gm/dl (11.8-15.2) L 01/24/20 04:30 Hct 27.8 % (35.5-45.6) L 01/24/20 04:30 MCV 81 fl (84-94) L 01/24/20 04:30 MCH 25 pg (28-32) L 01/24/20 04:30 MCHC 32 % (32-34) 01/24/20 04:30 RDW 18.2 % (13.2-15.2) H 01/24/20 04:30 Plt Count 270 K/mm3 (140-440) 01/24/20 04:30 Lymph % (Auto) 21.2 % (13.4-35.0) 01/24/20 04:30 [place] % (Auto) 7.8 % (0.0-7.3) H 01/24/20 04:30 Eos % (Auto) 4.1 % (0.0-4.3) 01/24/20 04:30 Baso % (Auto) 1.3 % (0.0-1.8) 01/24/20 04:30 Lymph # (Auto) 1.5 K/mm3 (1.2-5.4) 01/24/20 04:30 [place] # (Auto) 0.5 K/mm3 (0.0-0.8) 01/24/20 04:30 Eos # (Auto) 0.3 K/mm3 (0.0-0.4) 01/24/20 04:30 Baso # (Auto) 0.1 K/mm3 (0.0-0.1) 01/24/20 04:30 Add Manual Diff Complete 12/19/19 11:32 Total Counted 100 12/19/19 11:32 Seg Neutrophils % 65.6 % (40.0-70.0) 01/24/20 04:30 Seg Neuts % (Manual) 82.0 % (40.0-70.0) H 12/19/19 11:32 Band Neutrophils % 0 % 12/19/19 11:32 Lymphocytes % (Manual) 10.0 % (13.4-35.0) L 12/19/19 11:32 Reactive Lymphs % (Man) 0 % 12/19/19 11:32 Monocytes % (Manual) 6.0 % (0.0-7.3) 12/19/19 11:32 Eosinophils % (Manual) 2.0 % (0.0-4.3) 12/19/19 11:32 Basophils % (Manual) 0 % (0.0-1.8) 12/19/19 11:32 Metamyelocytes % 0 % 12/19/19 11:32 Myelocytes % 0 % 12/19/19 11:32 Promyelocytes % 0 % 12/19/19 11:32 Blast Cells % 0 % 12/19/19 11:32 Nucleated RBC % 1.0 % (0.0-0.9) H 12/19/19 11:32 Seg Neutrophils # 4.6 K/mm3 (1.8-7.7) 01/24/20 04:30 Seg Neutrophils # Man 12.0 K/mm3 (1.8-7.7) H 12/19/19 11:32 Band Neutrophils # 0.0 K/mm3 12/19/19 11:32 Lymphocytes # (Manual) 1.5 K/mm3 (1.2-5.4) 12/19/19 11:32 Abs React Lymphs (Man) 0.0 K/mm3 12/19/19 11:32 Monocytes # (Manual) 0.9 K/mm3 (0.0-0.8) H 12/19/19 11:32 Eosinophils # (Manual) 0.3 K/mm3 (0.0-0.4) 12/19/19 11:32 Basophils # (Manual) 0.0 K/mm3 (0.0-0.1) 12/19/19 11:32 Metamyelocytes # 0.0 K/mm3 12/19/19 11:32 Myelocytes # 0.0 K/mm3 12/19/19 11:32 Promyelocytes # 0.0 K/mm3 12/19/19 11:32 Blast Cells # 0.0 K/mm3 12/19/19 11:32 WBC Morphology Not Reportable 12/19/19 11:32 Hypersegmented Neuts Not Reportable 12/19/19 11:32 Hyposegmented Neuts Not Reportable 12/19/19 11:32 Hypogranular Neuts Not Reportable 12/19/19 11:32 Smudge Cells Not Reportable 12/19/19 11:32 Toxic Granulation Not Reportable 12/19/19 11:32 Toxic Vacuolation Not Reportable 12/19/19 11:32 Dohle Bodies Not Reportable 12/19/19 11:32 Pelger-Huet Anomaly Not Reportable 12/19/19 11:32 Hector Rods Not Reportable 12/19/19 11:32 Platelet Estimate Consistent w auto 12/19/19 11:32 Clumped Platelets Not Reportable 12/19/19 11:32 Plt Clumps, EDTA Not Reportable 12/19/19 11:32 Large Platelets Not Reportable 12/19/19 11:32 Giant Platelets Not Reportable 12/19/19 11:32 Platelet Satelliting Not Reportable 12/19/19 11:32 Plt Morphology Comment Not Reportable 12/19/19 11:32 RBC Morphology Not Reportable 12/19/19 11:32 Dimorphic RBCs Not Reportable 12/19/19 11:32 Polychromasia Not Reportable 12/19/19 11:32 Hypochromasia Few 12/19/19 11:32 Poikilocytosis Not Reportable 12/19/19 11:32 Anisocytosis 1+ 12/19/19 11:32 Microcytosis Few 12/19/19 11:32 Macrocytosis Few 12/19/19 11:32 Spherocytes Not Reportable 12/19/19 11:32 Pappenheimer Bodies Not Reportable 12/19/19 11:32 Sickle Cells Not Reportable 12/19/19 11:32 Target Cells Not Reportable 12/19/19 11:32 Tear Drop Cells Not Reportable 12/19/19 11:32 Ovalocytes Not Reportable 12/19/19 11:32 Helmet Cells Not Reportable 12/19/19 11:32 [place] Bodies Not Reportable 12/19/19 11:32 [employer] Rings Not Reportable 12/19/19 11:32 [place] Cells Not Reportable 12/19/19 11:32 Bite Cells Not Reportable 12/19/19 11:32 Crenated Cell Not Reportable 12/19/19 11:32 Elliptocytes Not Reportable 12/19/19 11:32 Acanthocytes (Spur) Not Reportable 12/19/19 11:32 Rouleaux Not Reportable 12/19/19 11:32 Hemoglobin C Crystals Not Reportable 12/19/19 11:32 Schistocytes Not Reportable 12/19/19 11:32 Malaria parasites Not Reportable 12/19/19 11:32 Clifford Bodies Not Reportable 12/19/19 11:32 Hem Pathologist Commnt No 12/19/19 11:32 PT 16.9 Sec. (12.2-14.9) H 01/22/20 09:58 INR 1.34 (0.87-1.13) H 01/22/20 09:58 APTT 31.5 Sec. (24.2-36.6) 01/22/20 09:58 Heparin Anti-Xa Level 1.34 U.I./ml (0.3-0.7) H 01/22/20 04:45 ABG pH 7.449 pH Units (7.350-7.450) 01/13/20 20:40 POC ABG pCO2 45.6 mmHg (32.0-48.0) 01/12/20 13:58 ABG pCO2 46.9 mm Hg 01/13/20 20:40 POC ABG pO2 76.6 mmHg (83-108) L 01/12/20 13:58 ABG pO2 65.3 mm Hg (80.0-90.0) L 01/13/20 20:40 POC ABG HCO3 31.2 01/12/20 13:58 ABG HCO3 31.8 mmol/L (20.0-26.0) H 01/13/20 20:40 ABG O2 Saturation 93.5 % (95.0-99.0) L 01/13/20 20:40 ABG O2 Content 17.0 (0.0-44) 01/13/20 20:40 POC ABG Base Excess 6.5 01/12/20 13:58 ABG Base Excess 6.7 mmol/L (-2.0-3.0) H 01/13/20 20:40 ABG Hemoglobin 13.3 gm/dl (14.0-18.0) L 01/13/20 20:40 ABG Oxyhemoglobin 84 (94-98) L 12/22/19 03:22 ABG Carboxyhemoglobin 2.2 % (0.0-5.0) 01/13/20 20:40 ABG Methemoglobin 0.6 % (0.0-1.5) 01/13/20 20:40 ABG Sodium 136.8 mmol/L (136.0-145.0) 01/12/20 13:58 ABG Potassium 3.7 mmol/L (3.40-4.50) 01/12/20 13:58 ABG Chloride 103.0 mmol/L (98-107) 01/12/20 13:58 ABG Glucose 99 mg/dL (65-95) H 01/12/20 13:58 Oxyhemoglobin 90.9 % (95.0-99.0) L 01/13/20 20:40 Carboxyhemoglobin 0.7 (0.5-1.5) 12/22/19 03:22 FiO2 35 % 01/13/20 20:40 Sodium 141 mmol/L (137-145) 01/24/20 04:30 Potassium 4.0 mmol/L (3.6-5.0) 01/24/20 04:30 Chloride 97.9 mmol/L (98-107) L 01/24/20 04:30 Carbon Dioxide 29 mmol/L (22-30) 01/24/20 04:30 Anion Gap 18 mmol/L 01/24/20 04:30 BUN 31 mg/dL (9-20) H 01/24/20 04:30 Creatinine 0.8 mg/dL (0.8-1.3) 01/24/20 04:30 Estimated GFR > 60 ml/min 01/24/20 04:30 BUN/Creatinine Ratio 39 % 01/24/20 04:30 Glucose 146 mg/dL (75-100) H 01/24/20 04:30 POC Glucose 151 mg/dL (70-105) H 01/24/20 07:18 Lactic Acid 2.50 mmol/L (0.7-2.0) H* 11/24/19 10:37 Magnesium 2.60 mg/dL (1.7-2.3) H 12/07/19 12:41 Calcium 9.1 mg/dL (8.4-10.2) 01/24/20 04:30 Ferritin 84.4 ng/mL (30.0-300.0) 11/24/19 04:53 Direct Bilirubin < 0.2 mg/dL (0-0.2) 12/08/19 03:55 Indirect Bilirubin 0.2 mg/dL 12/08/19 03:55 Phosphorus 3.40 mg/dL (2.5-4.5) 01/12/20 12:01 Total Bilirubin 0.50 mg/dL (0.1-1.2) 01/12/20 00:23 Total Creatine Kinase 141 units/L (55-170) 11/24/19 02:53 CK-MB (CK-2) 4.3 ng/mL (0.0-4.0) H 11/24/19 02:53 AST 16 units/L (5-40) 01/12/20 00:23 ALT 22 units/L (7-56) 01/12/20 00:23 CK-MB (CK-2) Rel Index 3.0 (0-4) 11/24/19 02:53 Alkaline Phosphatase 59 units/L (35-129) 01/12/20 00:23 C-Reactive Protein 8.50 mg/dL (0.00-1.30) H 12/01/19 12:16 Lactate Dehydrogenase 228 units/L (91-180) H 12/19/19 04:45 Troponin T < 0.010 ng/mL (0.00-0.029) 01/19/20 01:35 NT-Pro-B Natriuret Pep 3866 pg/mL (0-900) H 01/01/20 10:40 Total Protein 6.3 g/dL (6.3-8.2) 01/12/20 00:23 Albumin 2.6 g/dL (3.9-5) L 01/12/20 00:23 Albumin/Globulin Ratio 0.7 % 01/12/20 00:23 Procalcitonin 0.76 ng/mL (<0.15) 01/01/20 10:40 Arterial Blood Glucose 99 mg/dL (65-95) H 01/12/20 13:58 Arterial Blood Ionized Calcium 4.8 mg/dL (4.6-5.3) 01/12/20 13:58 Urine Color Cecy (Yellow) 12/31/19 18:04 Urine Turbidity Clear (Clear) 12/31/19 18:04 Urine pH 5.0 (5.0-7.0) 12/31/19 18:04 Ur Specific [place] 1.023 (1.003-1.030) 12/31/19 18:04 Urine Protein <15 mg/dl mg/dL (Negative) 12/31/19 18:04 Urine Glucose (UA) Neg mg/dL (Negative) 12/31/19 18:04 Urine Ketones Neg mg/dL (Negative) 12/31/19 18:04 Urine Blood Neg (Negative) 12/31/19 18:04 Urine Bacteria (Auto) 1+ /HPF (Negative) 12/03/19 06:03 Urine Nitrite Neg (Negative) 12/31/19 18:04 Urine Bilirubin Neg (Negative) 12/31/19 18:04 Urine Urobilinogen 4.0 mg/dL (<2.0) 12/31/19 18:04 Ur Leukocyte Esterase Neg (Negative) 12/31/19 18:04 Urine WBC (Auto) 2.0 /HPF (0.0-6.0) 12/31/19 18:04 Urine RBC (Auto) 3.0 /HPF (0.0-6.0) 12/31/19 18:04 U Epithel Cells (Auto) 2.0 /HPF (0-13.0) 12/31/19 18:04 Urine Mucus 1+ /HPF 12/31/19 18:04 Vancomycin Trough 14.2 ug/mL (5.0-20.0) 12/13/19 15:01 Coronavirus (PCR) Negative (Negative) 12/29/19 10:07 Blood Type O POSITIVE 01/21/20 13:00 Antibody Screen Negative 01/21/20 13:00 - Diagnostic Impressions Diagnostic Impressions: Echocardiogram 11/29/19 07:37 Transthoracic Echocardiogram Indication: CHF BP: 116/72 HR: 33 Conclusions *The study is technically limited due to poor acoustic windows. *Global left ventricular systolic function is normal. *The estimated ejection fraction is 50-55%. *Mild concentric left ventricular hypertrophy is observed. *There is trace of mitral regurgitation. *There is mild tricuspid regurgitation. Findings Procedure Info: The study quality is poor. The study is technically limited due to poor acoustic windows. The study is technically limited due to patient body habitus. Left Ventricle: The left ventricular chamber size is normal. Mild concentric left ventricular hypertrophy is observed. Global left ventricular systolic function is normal. The estimated ejection fraction is 50-55%. Left Atrium: The left atrial chamber size is normal. Right Ventricle: The right ventricular cavity size is normal. Right Atrium: The right atrial cavity size is normal. Aortic Valve: The aortic valve leaflets are moderately thickened. There is trace of aortic regurgitation. There is no evidence of aortic stenosis. Mitral Valve: The mitral valve leaflets are mildly thickened. There is trace of mitral regurgitation. There is no evidence of mitral stenosis. Tricuspid Valve: There is mild tricuspid regurgitation. No pulmonary hypertension is noted. Pulmonic Valve: There is trace pulmonic regurgitation. Pericardium: There is no pericardial effusion. Aorta: There is no dilatation of the aortic root. Venous: The inferior vena cava appears normal in size. Contrast: Definity was used to optimize study. Intravenous contrast was used to enhance endocardial border definition. Measurements Chambers 2D Name Value Normal Range Ao root diameter (2D) 3.4 cm (2 - 3.7) Aortic Valve Name Value Normal Range AV Vmax 0.98 m/sec - AV VTI 16.76 cm - AV peak gradient 3.83 mmHg - AV mean gradient 2.57 mmHg - LVOT diameter 3.11 cm - LVOT Vmax 0.68 m/sec - LVOT VTI 11.52 cm - LVOT peak gradient 1.84 mmHg - LVOT mean gradient 1.27 mmHg - SV LVOT 87.31 ml - MALOU (continuity Vmax) 5.24 cm2 - MALOU (continuity VTI) 5.21 cm2 - Tricuspid Valve Name Value Normal Range IVC diameter 2.24 cm (1.2 - 2.3) Hoffman/IV: Voiding Method Condom Catheter IV Catheter Type [Right INT / Saline Lock Forearm] IV Catheter Type [Right Hand] Peripheral IV IV Catheter Type [Right Upper INT / Saline Lock arm] IV Catheter Type [Left Upper Mid-line arm] IV Catheter Type [Left Forearm INT / Saline Lock ] IV Catheter Type [Left Hand] INT / Saline Lock IV Catheter Type [Left Wrist] INT / Saline Lock IV Catheter Type [Right Peripheral IV Antecubital] Active Medications - Current Medications Current Medications: Generic Name Dose Route Start Last Admin Trade Name Freq PRN Reason Stop Dose Admin Acetaminophen 650 mg 12/31/19 11:43 01/14/20 08:27 Tylenol FEEDTUBE 650 mg Q6H PRN Administration Pain, Mild (1-3) Amiodarone HCl 200 mg 01/21/20 06:00 01/23/20 10:42 Cordarone PO 200 mg QDAY CAR Administration Lipase/Protease/Amylase 1 each 01/09/20 12:01 Pancreaztao Betancourt 10,500 Unit FEEDTUBE PRN PRN For Clogged Feeding Tube Apixaban 5 mg 01/22/20 22:00 01/23/20 21:02 Eliquis PO 5 mg Q12HR CAR Administration Protocol Atorvastatin Calcium 40 mg 01/20/20 22:00 01/23/20 21:02 Lipitor PO 40 mg QHS CAR Administration Bisacodyl 10 mg 01/06/20 13:00 01/23/20 10:[address] 10 mg DAILY CAR Administration Clopidogrel Bisulfate 75 mg 01/21/20 06:00 01/23/20 10:42 Plavix PO 75 mg QDAY CAR Administration Docusate Sodium 100 mg 12/02/19 22:00 01/23/20 21:01 Colace FEEDTUBE 100 mg BID CAR Administration Famotidine 20 mg 01/12/20 10:00 01/23/20 21:02 Pepcid PO 20 mg BID CAR Administration Furosemide 20 mg 01/20/20 06:00 01/24/20 05:32 Lasix IV 20 mg 0600,1800 CAR Administration Glycopyrrolate 2 mg 01/12/20 22:00 01/23/20 21:01 Glycopyrrolate PO 2 mg BID CAR Administration Haloperidol Lactate 5 mg 12/25/19 10:00 01/22/20 11:35 Haldol IV 5 mg Q6H PRN Administration Unrespon. to mult. doses BZD's Hydrophilic Ointment 1 applic 01/17/20 15:26 Vaseline Lip Therapy TP DIRECT PRN Dry Lips Lorazepam 2 mg 12/25/19 10:00 01/24/20 02:52 Ativan IV 2 mg Q6H PRN Administration AGITATION Magnesium Hydroxide 30 ml 01/14/20 13:35 01/22/20 11:32 Milk Of Magnesia PO 30 ml QDAY PRN Administration Constip unreliev by MOM/or NPO Metoprolol Tartrate 5 mg 01/11/20 08:00 01/22/20 02:10 Metoprolol IV 5 mg Q6H PRN Administration SEE INSTRUCTIONS Metoprolol Tartrate 25 mg 01/11/20 13:00 01/24/20 07:12 Metoprolol PO Not Given Q6H CAR Morphine Sulfate 2 mg 01/06/20 15:41 01/23/20 03:39 Morphine IV 2 mg Q4H PRN Administration Pain, Moderate (4-6) Nitroglycerin 0.4 mg 01/19/20 21:09 01/20/20 03:03 Nitrostat SL 0.4 mg .Q5MIN PRN Administration Chest Pain Nitroglycerin 0.4 mg 01/21/20 06:00 01/24/20 05:31 Nitro Dur TD 0.4 mg QDAY@0600 CAR Administration Ondansetron HCl 4 mg 01/05/20 14:37 01/22/20 04:23 Zofran IV 4 mg Q8H PRN Administration Nausea And Vomiting Polyethylene Glycol 17 gm 12/04/19 22:00 01/23/20 21:01 Miralax 3350 PO 17 gm QHS CAR Administration Quetiapine Fumarate 300 mg 01/13/20 22:00 01/23/20 21:02 Seroquel PO 300 mg BID CAR Administration Scopolamine 1 each 01/07/20 20:00 01/07/20 21:08 Transderm-Scop TD 1 each Q72HR CAR Administration Simple Syrup 15 ml 01/09/20 12:01 Simple Syrup FEEDTUBE PRN PRN Hypoglycemia Simple Syrup 30 ml 01/09/20 12:01 Simple Syrup FEEDTUBE PRN PRN Hypoglycemia Sodium Bicarbonate 325 mg 01/09/20 12:01 Sodium Bicarbonate FEEDTUBE PRN PRN For Clogged Feeding Tube Sodium Chloride 10 ml 11/24/19 10:00 01/23/20 21:02 Sodium Chloride Flush Syringe 10 Ml IV 10 ml BID CAR Administration Tamsulosin HCl 0.8 mg 12/20/19 22:00 01/23/20 21:02 Flomax PO 0.8 mg QHS CAR Administration Nutrition/Malnutrition Assess - Dietary Evaluation Nutrition/Malnutrition Findings: Nutrition Notes Start: 11/24/19 12:22 Freq: Status: Active Protocol: Document 01/22/20 11:28 HEATHER (Rec: 01/22/20 11:43 HEATHER [id number]) Co-Sign 01/22/20 11:28 LP Nutrition Notes Initial or Follow up Reassessment Current Diagnosis Coronary Artery Disease,Heart Failure,Respiratory Failure, Stroke,Hyperlipidemia Other Pertinent Diagnosis Partial SBO, pneu Current Diet NPO Labs/Tests No new labs Pertinent Medications Lasix (not given) Height 6 ft 2 in Weight 116 kg [place] Body Weight (kg) 86.36 BMI 32.8 Weight Status Overweight Subjective/Other Information F/u POC. Respiratory therapist visited today. Pt alert but remains on mechanical ventilation through trach. Noted emesis from RN note. Per RN, pt has gag reflex when he needs more suctioning. TF is being tolerated. RN okay with restarting TF at 70ml/hr. Percent of energy/protein needs met: 0%/0% Burn Absent Trauma Absent GI Symptoms None Current % PO Negligible Minimum of two criteria Yes Muscle Mass Mild Depletion (non-severe) Fluid Accumulation Mild (non-severe) Reduced Three Knife Trimmer Strength Measurably Reduced (severe) #2 Nutrition Diagnosis Malnutrition Diagnosis Progress(for reassessment Continues documentation) #1 Nutrition Diagnosis Inadequate oral intake Diagnosis Progress(for reassessment Continues documentation) Is patient on ventilator? Yes Is Patient Ambulatory and/or Out of Bed No REE-([facility]-confined to bed) 2434.356 Kcal/Kg value to use for calculation 16 Approximate Energy Requirements Using 1856 kcal/Kg Calculation Used for Recommendations Kcal/kg Additional Notes Protein needs are up to 162g ( 2g/kg IBW) Fluid needs are 1.5L [ End ] Nutrition Intervention Change Diet Order: Continue TF Nutrition Support: Vital HP at 70ml/hr (goal rate ) Flush 50ml q4h or per MD Kcal 1,680 Protein (gm) 105 Fluid (mL) 1,409 Goal #1 Meet at least 75% of pt's energy and protein needs Anticipated Discharge Needs: unable to determine Follow-Up By: 01/26/20 Additional Comments F/u stable TF and wt
--- NOTE | 2020-01-24 10:12 | Progress Note ---
Assessment and Plan 1. Paroxysmal atrial fibrillation 2. Coronary artery disease status post PCI and stent to the LAD 3. Ischemic cardiomyopathy left ventricular ejection fraction 40 to 45% 4. Chronic respiratory failure status post tracheostomy 5. Chronic obstructive pulmonary disease 6. Essential hypertension Recent cardiac catheterization has documented widely patent left anterior descending artery stent with minimal nonobstructive diffuse coronary artery disease in the rest of the coronary arteries. Evidence of ischemic cardiomyopathy with inferior wall hypokinesis. Plan. Continue with guideline directed medical therapy. Subjective Date of service: 01/24/20 Principal diagnosis: Ac hypoxemic resp failure; Pneumonia; PUI COVID-19; CHF; COPD; HTN Interval history: No cardiac symptoms. Objective Vital Signs Temp Pulse Resp BP Pulse Ox Pulse Ox 01/24/20 08:00 98.1 F 86 123/76 96 96 01/24/20 07:00 87 21 133/77 01/24/20 06:01 86 22 133/93 96 01/24/20 05:31 83 122/77 01/24/20 05:00 82 24 122/77 97 01/24/20 04:00 97.7 F 82 27 H 112/74 99 01/24/20 03:58 82 127/77 97 01/24/20 03:00 86 24 127/77 98 01/24/20 02:00 85 22 118/76 99 01/24/20 01:00 EST 85 19 123/70 100 01/24/20 01:10 EDT 84 123/70 01/24/20 00:01 86 26 H 119/75 01/24/20 00:00 98.7 F 85 01/23/20 23:27 88 117/81 100 01/23/20 23:00 87 22 117/81 97 01/23/20 22:51 90 24 119/75 98 01/23/20 22:00 82 22 119/75 99 01/23/20 21:00 84 24 127/75 99 01/23/20 20:07 86 115/82 98 01/23/20 20:01 86 29 H 107/83 97 01/23/20 20:00 98.0 F 01/23/20 19:18 85 01/23/20 19:00 87 21 115/82 01/23/20 18:19 91 H 123/77 01/23/20 18:00 87 19 123/77 01/23/20 17:00 87 20 129/78 01/23/20 16:00 87 26 H 129/78 98 98 01/23/20 15:58 97.9 F 01/23/20 15:00 90 17 136/84 99 01/23/20 14:00 88 22 123/78 97 01/23/20 13:56 88 122/80 01/23/20 13:00 90 19 122/80 98 01/23/20 12:00 98.1 F 85 20 110/72 100 - Physical Examination General: Other (awake, s/p trach) HEENT: Positive: PERRL Neck: Positive: neck supple. Negative: JVD/HJR Cardiac: Positive: Regular Rate, S1/S2, PMI, Laterally Displaced. Negative: S3, S4 Lungs: Positive: Normal Breath Sounds, No Wheeze, Rales, Rhonchi Neuro: Positive: Weakness, Other (Sedated, on the vent via trach) Abdomen: Positive: Soft Skin: Positive: Clear Extremities: Absent: edema - Labs and Meds CBC 01/24/20 Range/Units 04:30 WBC 7.0 (4.5-11.0) K/mm3 RBC 3.46 L (3.65-5.03) M/mm3 Hgb 8.8 L (11.8-15.2) gm/dl Hct 27.8 L (35.5-45.6) % Plt Count 270 (140-440) K/mm3 Lymph # (Auto) 1.5 (1.2-5.4) K/mm3 [place] # (Auto) 0.5 (0.0-0.8) K/mm3 Eos # (Auto) 0.3 (0.0-0.4) K/mm3 Baso # (Auto) 0.1 (0.0-0.1) K/mm3 Comprehensive Metabolic Panel 01/24/20 Range/Units 04:30 Sodium 141 (137-145) mmol/L Potassium 4.0 (3.6-5.0) mmol/L Chloride 97.9 L (98-107) mmol/L Carbon Dioxide 29 (22-30) mmol/L BUN 31 H (9-20) mg/dL Creatinine 0.8 (0.8-1.3) mg/dL Glucose 146 H (75-100) mg/dL Calcium 9.1 (8.4-10.2) mg/dL - Allied health notes Allied health notes reviewed: nursing
[2020-01-24] MEDS: GLYCOPYRROLATE 2 MG TAB PO SCH ×2 (10:53→21:37)
[2020-01-24] MEDS: APIXABAN 5 MG TAB PO SCH ×2 (10:53→21:36)
[2020-01-24] MEDS: FAMOTIDINE 20 MG TAB PO SCH ×2 (10:53→21:37)
[2020-01-24] MEDS: CLOPIDOGREL 75 MG TAB PO SCH (10:53)
[2020-01-24] MEDS: ONDANSETRON 4 MG/2 ML INJ IV PRN (10:53)
[2020-01-24] MEDS: AMIODARONE 200 MG TAB PO SCH (10:53)
[2020-01-24] MEDS: QUEtiapine 100 MG TAB PO SCH ×2 (10:56→21:37)
[2020-01-24] MEDS: DOCUSATE SODIUM 100 MG/10 ML ORAL LIQD FEEDTUBE SCH ×2 (14:35→21:36)
--- NOTE | 2020-01-24 14:51 | Progress Note ---
Assessment and Plan Acute hypoxemic respiratory failure s/p trach on MVS Bilateral pneumonia, community acquired. Acute congestive heart failure exacerbation. History of cerebrovascular accident. Acute chronic obstructive pulmonary disease exacerbation. Hypertension and hypertensive urgency at presentation. History of arthritis. Oropharyngeal dysphagia Right Lext DVT Pulmonary embolism SBT, ATP trials as tolerated Trach care, airway clearance, secretion management Bowel regimen, monitor vomiting Replete potassium, keep at 4, magnesium at 2 and Phos at 2.5 Continue with Furosemide while monitoring renal function, electrolyte profile and hemodynamics On Apixaban CXR, ABG as clinically indicated Continue accuchecks with glycemic control per SSI for target blood glucose goal of 140-180 mg/dL while critically ill; Avoid hypoglycemia - continue to monitor renal function, hemodynamics and electrolyte profile - continue to wean oxygen for O2 sats > 90% - continue bronchodilators with pulmonary hygiene per RT - VAP bundle addressed (Aspiration precautions, HOB >40) - continue to wean per pulmonary driven protocols - continue prn analgesia per CPOT score - follow clinically re: fever curves / trend WBC - Avoid delirium (no benzodiazepines if they can be avoided) - continue stress ulcer prophylaxis with Famotidine BID - continue mobility protocols for pressure ulcer prophylaxis - continue fall precautions - Supportive transfusions as indicated to keep HgB>7g/dL - Continue to monitor neurologic function - Continue chronic home medications as clinically indicated - Continue all supportive care CONDITION: FAIR PROGNOSIS: FAIR CODE STATUS: FULL CODE Subjective Date of service: 01/24/20 Principal diagnosis: Ac hypoxemic resp failure; Pneumonia; PUI COVID-19; CHF; COPD; HTN Interval history: Patient is seen today for: Acute hypoxemic respiratory failure; Adan. Pneumonia (CAP); PUI COVID-19 infection; AE-CHF; AE-COPD; H/O CVA; HTN; PE, DVT Seen and examined at bedside; 24 hour events reviewed; nursing and respiratory care staff consulted; no adverse overnight events reported to me; resting peacefully in bed; s/p trach on full support, awake and alert ,tolerating tube feedings. Vent AC-VC 12/450/+6/30% No fevers, tolerated 8 hours of ATP yesterday.Vomited this morning, given Zofran with good response Objective Vital Signs - 12hr 01/24/20 01/24/20 01/24/20 03:00 03:58 04:00 Temperature 97.7 F Pulse Rate 86 82 82 Respiratory 24 27 H Rate Blood Pressure 127/77 127/77 112/74 O2 Sat by Pulse 98 97 99 Oximetry O2 Sat by Pulse Oximetry [ Assessment] 01/24/20 01/24/20 01/24/20 05:00 05:31 06:01 Temperature Pulse Rate 82 83 86 Respiratory 24 22 Rate Blood Pressure 122/77 122/77 133/93 O2 Sat by Pulse 97 96 Oximetry O2 Sat by Pulse Oximetry [ Assessment] 01/24/20 01/24/20 01/24/20 07:00 08:00 09:00 Temperature 98.1 F Pulse Rate 87 86 81 Respiratory 21 21 24 Rate Blood Pressure 133/77 123/76 122/70 O2 Sat by Pulse 98 95 Oximetry O2 Sat by Pulse 96 Oximetry [ Assessment] 01/24/20 01/24/20 01/24/20 10:00 11:00 11:01 Temperature Pulse Rate 84 90 86 Respiratory 22 22 19 Rate Blood Pressure 125/73 138/81 125/73 O2 Sat by Pulse 94 94 99 Oximetry O2 Sat by Pulse Oximetry [ Assessment] 01/24/20 01/24/20 01/24/20 12:00 12:01 13:00 Temperature 98.2 F Pulse Rate 92 H 120 H Respiratory 25 H 20 Rate Blood Pressure 125/73 126/69 O2 Sat by Pulse 97 94 Oximetry O2 Sat by Pulse Oximetry [ Assessment] 01/24/20 01/24/20 14:00 14:34 Temperature Pulse Rate 108 H 107 H Respiratory 18 Rate Blood Pressure 126/62 126/62 O2 Sat by Pulse 90 Oximetry O2 Sat by Pulse Oximetry [ Assessment] Constitutional: no acute distress, other (elelelderly and obese male, normocephalic with mildly increased respiratory effort at rest on MVS) Eyes: non-icteric ENT: other (trach to MVS, moderate tracheal secretions, strong cough) Neck: supple, no JVD Effort: mildly labored Ascultation: Bilateral: clear, diminished breath sounds, rhonchi, other (+ secretions) Percussion: Bilateral: not dull Cardiovascular: irregular rhythm, other (S1,S2) Gastrointestinal: normoactive bowel sounds, soft, non-tender, non-distended (protuberant), other (protuberant; PEG in place) Integumentary: normal Extremities: no cyanosis, pulses normal, no ischemia or petechiae, edema (bilateral upper ) Neurologic: normal mental status, non-focal exam (moves extremities), pupils equal and round Psychiatric: mood appropriate, affect normal CBC and BMP: 01/28/20 04:37 01/29/20 04:55 ABG, PT/INR, D-dimer: ABG ABG pH 7.449 pH Units (7.350-7.450) 01/13/20 20:40 POC ABG pCO2 45.6 mmHg (32.0-48.0) 01/12/20 13:58 ABG pCO2 46.9 mm Hg 01/13/20 20:40 POC ABG pO2 76.6 mmHg (83-108) L 01/12/20 13:58 ABG pO2 65.3 mm Hg (80.0-90.0) L 01/13/20 20:40 POC ABG HCO3 31.2 01/12/20 13:58 ABG O2 Saturation 93.5 % (95.0-99.0) L 01/13/20 20:40 PT/INR, D-dimer PT 16.9 Sec. (12.2-14.9) H 01/22/20 09:58 INR 1.34 (0.87-1.13) H 01/22/20 09:58 Abnormal lab findings: Abnormal Labs 11/24/19 11/24/19 11/24/19 02:53 02:53 03:45 WBC 14.3 H RBC Hgb Hct MCHC RDW 17.2 H MCV MCH Lymph % (Auto) [place] % (Auto) [place] # Eos # Lymph # (Auto) [place] # (Auto) Eos # (Auto) Seg Neutrophils % Seg Neuts % (Manual) Baso # (Auto) Lymphocytes % (Manual) Monocytes % (Manual) Eosinophils % (Manual) Basophils % (Manual) Seg Neutrophils # Seg Neutrophils # Man 8.3 H Lymphocytes # (Manual) Monocytes # (Manual) 0.9 H Eosinophils # (Manual) Nucleated RBC % Basophils # (Manual) PT INR APTT Heparin Anti-Xa Level ABG pH 7.313 L POC ABG pO2 ABG pO2 102.8 H ABG HCO3 ABG O2 Saturation ABG Base Excess -2.9 L POC ABG pCO2 ABG Hemoglobin ABG Oxyhemoglobin ABG Glucose Oxyhemoglobin 93.9 L Sodium Potassium Chloride Carbon Dioxide BUN Creatinine Glucose 195 H POC Glucose Lactic Acid Calcium Phosphorus Magnesium AST ALT Lactate Dehydrogenase CK-MB (CK-2) 4.3 H C-Reactive Protein NT-Pro-B Natriuret Pep 1181 H Total Protein Albumin Arterial Blood Glucose Urine WBC (Auto) 11/24/19 11/24/19 11/24/19 04:53 04:53 10:37 WBC RBC Hgb Hct MCHC RDW MCV MCH Lymph % (Auto) [place] % (Auto) [place] # Eos # Lymph # (Auto) [place] # (Auto) Eos # (Auto) Seg Neutrophils % Seg Neuts % (Manual) Baso # (Auto) Lymphocytes % (Manual) Monocytes % (Manual) Eosinophils % (Manual) Basophils % (Manual) Seg Neutrophils # Seg Neutrophils # Man Lymphocytes # (Manual) Monocytes # (Manual) Eosinophils # (Manual) Nucleated RBC % Basophils # (Manual) PT INR APTT Heparin Anti-Xa Level ABG pH POC ABG pO2 ABG pO2 ABG HCO3 ABG O2 Saturation ABG Base Excess POC ABG pCO2 ABG Hemoglobin ABG Oxyhemoglobin ABG Glucose Oxyhemoglobin Sodium Potassium Chloride Carbon Dioxide BUN Creatinine Glucose 162 H POC Glucose Lactic Acid 2.40 H* 2.50 H* Calcium Phosphorus Magnesium AST ALT Lactate Dehydrogenase 240 H CK-MB (CK-2) C-Reactive Protein NT-Pro-B Natriuret Pep Total Protein Albumin Arterial Blood Glucose Urine WBC (Auto) 11/24/19 11/24/19 11/24/19 12:21 14:50 19:54 WBC RBC Hgb Hct MCHC RDW MCV MCH Lymph % (Auto) [place] % (Auto) [place] # Eos # Lymph # (Auto) [place] # (Auto) Eos # (Auto) Seg Neutrophils % Seg Neuts % (Manual) Baso # (Auto) Lymphocytes % (Manual) Monocytes % (Manual) Eosinophils % (Manual) Basophils % (Manual) Seg Neutrophils # Seg Neutrophils # Man Lymphocytes # (Manual) Monocytes # (Manual) Eosinophils # (Manual) Nucleated RBC % Basophils # (Manual) PT INR APTT Heparin Anti-Xa Level ABG pH POC ABG pO2 ABG pO2 ABG HCO3 ABG O2 Saturation ABG Base Excess POC ABG pCO2 ABG Hemoglobin ABG Oxyhemoglobin ABG Glucose Oxyhemoglobin Sodium Potassium Chloride Carbon Dioxide BUN Creatinine Glucose POC Glucose 145 H 143 H 124 H Lactic Acid Calcium Phosphorus Magnesium AST ALT Lactate Dehydrogenase CK-MB (CK-2) C-Reactive Protein NT-Pro-B Natriuret Pep Total Protein Albumin Arterial Blood Glucose Urine WBC (Auto) 11/25/19 11/25/19 11/25/19 00:18 03:18 05:11 WBC 13.7 H RBC Hgb Hct MCHC RDW 17.1 H MCV MCH Lymph % (Auto) 10.8 L [place] % (Auto) 8.7 H [place] # 1.2 H Eos # Lymph # (Auto) [place] # (Auto) Eos # (Auto) Seg Neutrophils % 80.2 H Seg Neuts % (Manual) Baso # (Auto) Lymphocytes % (Manual) Monocytes % (Manual) Eosinophils % (Manual) Basophils % (Manual) Seg Neutrophils # 11.0 H Seg Neutrophils # Man Lymphocytes # (Manual) Monocytes # (Manual) Eosinophils # (Manual) Nucleated RBC % Basophils # (Manual) PT INR APTT Heparin Anti-Xa Level ABG pH 7.333 L POC ABG pO2 ABG pO2 61.2 L ABG HCO3 ABG O2 Saturation 90.2 L ABG Base Excess POC ABG pCO2 ABG Hemoglobin 13.7 L ABG Oxyhemoglobin ABG Glucose Oxyhemoglobin 88.2 L Sodium Potassium Chloride Carbon Dioxide BUN Creatinine Glucose POC Glucose 109 H Lactic Acid Calcium Phosphorus Magnesium AST ALT Lactate Dehydrogenase CK-MB (CK-2) C-Reactive Protein NT-Pro-B Natriuret Pep Total Protein Albumin Arterial Blood Glucose Urine WBC (Auto) 11/25/19 11/25/19 11/26/19 05:11 11:40 03:12 WBC RBC Hgb Hct MCHC RDW MCV MCH Lymph % (Auto) [place] % (Auto) [place] # Eos # Lymph # (Auto) [place] # (Auto) Eos # (Auto) Seg Neutrophils % Seg Neuts % (Manual) Baso # (Auto) Lymphocytes % (Manual) Monocytes % (Manual) Eosinophils % (Manual) Basophils % (Manual) Seg Neutrophils # Seg Neutrophils # Man Lymphocytes # (Manual) Monocytes # (Manual) Eosinophils # (Manual) Nucleated RBC % Basophils # (Manual) PT INR APTT Heparin Anti-Xa Level ABG pH POC ABG pO2 ABG pO2 155.1 H ABG HCO3 27.8 H ABG O2 Saturation ABG Base Excess POC ABG pCO2 ABG Hemoglobin 12.2 L ABG Oxyhemoglobin ABG Glucose Oxyhemoglobin Sodium Potassium Chloride Carbon Dioxide BUN 23 H Creatinine Glucose 110 H POC Glucose 108 H Lactic Acid Calcium Phosphorus Magnesium AST ALT Lactate Dehydrogenase CK-MB (CK-2) C-Reactive Protein NT-Pro-B Natriuret Pep Total Protein Albumin Arterial Blood Glucose Urine WBC (Auto) 11/26/19 11/26/19 11/26/19 06:17 10:43 10:43 WBC 11.4 H RBC Hgb Hct MCHC RDW 17.1 H MCV MCH Lymph % (Auto) [place] % (Auto) [place] # Eos # Lymph # (Auto) [place] # (Auto) Eos # (Auto) Seg Neutrophils % Seg Neuts % (Manual) Baso # (Auto) Lymphocytes % (Manual) Monocytes % (Manual) Eosinophils % (Manual) Basophils % (Manual) Seg Neutrophils # Seg Neutrophils # Man Lymphocytes # (Manual) Monocytes # (Manual) Eosinophils # (Manual) Nucleated RBC % Basophils # (Manual) PT INR APTT Heparin Anti-Xa Level ABG pH POC ABG pO2 ABG pO2 ABG HCO3 ABG O2 Saturation ABG Base Excess POC ABG pCO2 ABG Hemoglobin ABG Oxyhemoglobin ABG Glucose Oxyhemoglobin Sodium Potassium Chloride Carbon Dioxide BUN 29 H Creatinine Glucose POC Glucose 107 H Lactic Acid Calcium Phosphorus Magnesium AST ALT Lactate Dehydrogenase CK-MB (CK-2) C-Reactive Protein NT-Pro-B Natriuret Pep Total Protein Albumin Arterial Blood Glucose Urine WBC (Auto) 11/26/19 11/27/19 11/27/19 17:11 01:53 04:11 WBC RBC Hgb Hct MCHC RDW MCV MCH Lymph % (Auto) [place] % (Auto) [place] # Eos # Lymph # (Auto) [place] # (Auto) Eos # (Auto) Seg Neutrophils % Seg Neuts % (Manual) Baso # (Auto) Lymphocytes % (Manual) Monocytes % (Manual) Eosinophils % (Manual) Basophils % (Manual) Seg Neutrophils # Seg Neutrophils # Man Lymphocytes # (Manual) Monocytes # (Manual) Eosinophils # (Manual) Nucleated RBC % Basophils # (Manual) PT INR APTT Heparin Anti-Xa Level ABG pH POC ABG pO2 ABG pO2 ABG HCO3 29.2 H ABG O2 Saturation ABG Base Excess 3.4 H POC ABG pCO2 ABG Hemoglobin 13.3 L ABG Oxyhemoglobin ABG Glucose Oxyhemoglobin 94.5 L Sodium Potassium Chloride Carbon Dioxide BUN Creatinine Glucose POC Glucose 113 H 108 H Lactic Acid Calcium Phosphorus Magnesium AST ALT Lactate Dehydrogenase CK-MB (CK-2) C-Reactive Protein NT-Pro-B Natriuret Pep Total Protein Albumin Arterial Blood Glucose Urine WBC (Auto) 11/27/19 11/28/19 11/28/19 05:27 05:00 05:25 WBC RBC Hgb Hct MCHC RDW MCV MCH Lymph % (Auto) [place] % (Auto) [place] # Eos # Lymph # (Auto) [place] # (Auto) Eos # (Auto) Seg Neutrophils % Seg Neuts % (Manual) Baso # (Auto) Lymphocytes % (Manual) Monocytes % (Manual) Eosinophils % (Manual) Basophils % (Manual) Seg Neutrophils # Seg Neutrophils # Man Lymphocytes # (Manual) Monocytes # (Manual) Eosinophils # (Manual) Nucleated RBC % Basophils # (Manual) PT INR APTT Heparin Anti-Xa Level ABG pH POC ABG pO2 68.1 L ABG pO2 ABG HCO3 ABG O2 Saturation ABG Base Excess POC ABG pCO2 ABG Hemoglobin ABG Oxyhemoglobin 91.2 L ABG Glucose Oxyhemoglobin Sodium Potassium Chloride Carbon Dioxide BUN Creatinine Glucose POC Glucose 111 H 110 H Lactic Acid Calcium Phosphorus Magnesium AST ALT Lactate Dehydrogenase CK-MB (CK-2) C-Reactive Protein NT-Pro-B Natriuret Pep Total Protein Albumin Arterial Blood Glucose Urine WBC (Auto) 11/28/19 11/28/19 11/28/19 12:08 13:47 13:47 WBC 11.3 H RBC Hgb Hct MCHC RDW 16.1 H MCV MCH Lymph % (Auto) [place] % (Auto) 9.9 H [place] # 1.1 H Eos # Lymph # (Auto) [place] # (Auto) Eos # (Auto) Seg Neutrophils % 71.4 H Seg Neuts % (Manual) Baso # (Auto) Lymphocytes % (Manual) Monocytes % (Manual) Eosinophils % (Manual) Basophils % (Manual) Seg Neutrophils # 8.1 H Seg Neutrophils # Man Lymphocytes # (Manual) Monocytes # (Manual) Eosinophils # (Manual) Nucleated RBC % Basophils # (Manual) PT INR APTT Heparin Anti-Xa Level ABG pH POC ABG pO2 ABG pO2 ABG HCO3 ABG O2 Saturation ABG Base Excess POC ABG pCO2 ABG Hemoglobin ABG Oxyhemoglobin ABG Glucose Oxyhemoglobin Sodium Potassium Chloride Carbon Dioxide BUN 23 H Creatinine Glucose 123 H POC Glucose 112 H Lactic Acid Calcium Phosphorus Magnesium AST ALT Lactate Dehydrogenase CK-MB (CK-2) C-Reactive Protein NT-Pro-B Natriuret Pep Total Protein Albumin 3.7 L Arterial Blood Glucose Urine WBC (Auto) 11/28/19 11/29/19 11/29/19 17:26 03:55 17:04 WBC RBC Hgb Hct MCHC RDW MCV MCH Lymph % (Auto) [place] % (Auto) [place] # Eos # Lymph # (Auto) [place] # (Auto) Eos # (Auto) Seg Neutrophils % Seg Neuts % (Manual) Baso # (Auto) Lymphocytes % (Manual) Monocytes % (Manual) Eosinophils % (Manual) Basophils % (Manual) Seg Neutrophils # Seg Neutrophils # Man Lymphocytes # (Manual) Monocytes # (Manual) Eosinophils # (Manual) Nucleated RBC % Basophils # (Manual) PT INR APTT Heparin Anti-Xa Level ABG pH POC ABG pO2 ABG pO2 65.7 L ABG HCO3 28.3 H ABG O2 Saturation 93.9 L ABG Base Excess 3.6 H POC ABG pCO2 ABG Hemoglobin 13.3 L ABG Oxyhemoglobin ABG Glucose Oxyhemoglobin 91.5 L Sodium Potassium Chloride Carbon Dioxide BUN Creatinine Glucose POC Glucose 123 H 119 H Lactic Acid Calcium Phosphorus Magnesium AST ALT Lactate Dehydrogenase CK-MB (CK-2) C-Reactive Protein NT-Pro-B Natriuret Pep Total Protein Albumin Arterial Blood Glucose Urine WBC (Auto) 11/30/19 11/30/19 11/30/19 04:17 04:17 04:56 WBC 13.4 H RBC Hgb Hct MCHC RDW 15.6 H MCV MCH Lymph % (Auto) [place] % (Auto) [place] # Eos # Lymph # (Auto) [place] # (Auto) Eos # (Auto) Seg Neutrophils % Seg Neuts % (Manual) Baso # (Auto) Lymphocytes % (Manual) Monocytes % (Manual) Eosinophils % (Manual) Basophils % (Manual) Seg Neutrophils # Seg Neutrophils # Man Lymphocytes # (Manual) Monocytes # (Manual) Eosinophils # (Manual) Nucleated RBC % Basophils # (Manual) PT INR APTT Heparin Anti-Xa Level ABG pH POC ABG pO2 ABG pO2 56.3 L ABG HCO3 29.3 H ABG O2 Saturation 91.5 L ABG Base Excess 4.7 H POC ABG pCO2 ABG Hemoglobin 12.1 L ABG Oxyhemoglobin ABG Glucose Oxyhemoglobin 89.2 L Sodium 147 H Potassium Chloride Carbon Dioxide BUN 30 H Creatinine Glucose 124 H POC Glucose Lactic Acid Calcium Phosphorus Magnesium AST ALT Lactate Dehydrogenase CK-MB (CK-2) C-Reactive Protein NT-Pro-B Natriuret Pep Total Protein Albumin 3.8 L Arterial Blood Glucose Urine WBC (Auto) 11/30/19 11/30/19 11/30/19 05:51 11:54 18:17 WBC RBC Hgb Hct MCHC RDW MCV MCH Lymph % (Auto) [place] % (Auto) [place] # Eos # Lymph # (Auto) [place] # (Auto) Eos # (Auto) Seg Neutrophils % Seg Neuts % (Manual) Baso # (Auto) Lymphocytes % (Manual) Monocytes % (Manual) Eosinophils % (Manual) Basophils % (Manual) Seg Neutrophils # Seg Neutrophils # Man Lymphocytes # (Manual) Monocytes # (Manual) Eosinophils # (Manual) Nucleated RBC % Basophils # (Manual) PT INR APTT Heparin Anti-Xa Level ABG pH POC ABG pO2 ABG pO2 ABG HCO3 ABG O2 Saturation ABG Base Excess POC ABG pCO2 ABG Hemoglobin ABG Oxyhemoglobin ABG Glucose Oxyhemoglobin Sodium Potassium Chloride Carbon Dioxide BUN Creatinine Glucose POC Glucose 127 H 115 H 143 H Lactic Acid Calcium Phosphorus Magnesium AST ALT Lactate Dehydrogenase CK-MB (CK-2) C-Reactive Protein NT-Pro-B Natriuret Pep Total Protein Albumin Arterial Blood Glucose Urine WBC (Auto) 12/01/19 12/01/19 12/01/19 01:18 05:22 12:16 WBC RBC Hgb Hct MCHC RDW MCV MCH Lymph % (Auto) [place] % (Auto) [place] # Eos # Lymph # (Auto) [place] # (Auto) Eos # (Auto) Seg Neutrophils % Seg Neuts % (Manual) Baso # (Auto) Lymphocytes % (Manual) Monocytes % (Manual) Eosinophils % (Manual) Basophils % (Manual) Seg Neutrophils # Seg Neutrophils # Man Lymphocytes # (Manual) Monocytes # (Manual) Eosinophils # (Manual) Nucleated RBC % Basophils # (Manual) PT INR APTT Heparin Anti-Xa Level ABG pH POC ABG pO2 ABG pO2 ABG HCO3 ABG O2 Saturation ABG Base Excess POC ABG pCO2 ABG Hemoglobin ABG Oxyhemoglobin ABG Glucose Oxyhemoglobin Sodium Potassium 3.5 L Chloride 107.8 H Carbon Dioxide BUN 37 H Creatinine Glucose 157 H POC Glucose 118 H 148 H Lactic Acid Calcium 8.2 L D Phosphorus Magnesium AST 48 H ALT 60 H Lactate Dehydrogenase 194 H CK-MB (CK-2) C-Reactive Protein 8.50 H NT-Pro-B Natriuret Pep Total Protein 5.5 L Albumin 2.8 L Arterial Blood Glucose Urine WBC (Auto) 12/01/19 12/02/19 12/02/19 18:04 00:05 05:16 WBC 11.4 H RBC Hgb Hct MCHC RDW 15.9 H MCV MCH Lymph % (Auto) [place] % (Auto) 9.9 H [place] # 1.1 H Eos # Lymph # (Auto) [place] # (Auto) Eos # (Auto) Seg Neutrophils % 70.3 H Seg Neuts % (Manual) Baso # (Auto) Lymphocytes % (Manual) Monocytes % (Manual) Eosinophils % (Manual) Basophils % (Manual) Seg Neutrophils # 8.0 H Seg Neutrophils # Man Lymphocytes # (Manual) Monocytes # (Manual) Eosinophils # (Manual) Nucleated RBC % Basophils # (Manual) PT INR APTT Heparin Anti-Xa Level ABG pH POC ABG pO2 ABG pO2 ABG HCO3 ABG O2 Saturation ABG Base Excess POC ABG pCO2 ABG Hemoglobin ABG Oxyhemoglobin ABG Glucose Oxyhemoglobin Sodium Potassium Chloride Carbon Dioxide BUN Creatinine Glucose POC Glucose 143 H 107 H Lactic Acid Calcium Phosphorus Magnesium AST ALT Lactate Dehydrogenase CK-MB (CK-2) C-Reactive Protein NT-Pro-B Natriuret Pep Total Protein Albumin Arterial Blood Glucose Urine WBC (Auto) 12/02/19 12/02/19 12/02/19 05:16 06:03 11:52 WBC RBC Hgb Hct MCHC RDW MCV MCH Lymph % (Auto) [place] % (Auto) [place] # Eos # Lymph # (Auto) [place] # (Auto) Eos # (Auto) Seg Neutrophils % Seg Neuts % (Manual) Baso # (Auto) Lymphocytes % (Manual) Monocytes % (Manual) Eosinophils % (Manual) Basophils % (Manual) Seg Neutrophils # Seg Neutrophils # Man Lymphocytes # (Manual) Monocytes # (Manual) Eosinophils # (Manual) Nucleated RBC % Basophils # (Manual) PT INR APTT Heparin Anti-Xa Level ABG pH POC ABG pO2 ABG pO2 ABG HCO3 ABG O2 Saturation ABG Base Excess POC ABG pCO2 ABG Hemoglobin ABG Oxyhemoglobin ABG Glucose Oxyhemoglobin Sodium 146 H Potassium Chloride Carbon Dioxide BUN 28 H Creatinine Glucose 123 H POC Glucose 110 H 152 H Lactic Acid Calcium Phosphorus Magnesium AST ALT Lactate Dehydrogenase CK-MB (CK-2) C-Reactive Protein NT-Pro-B Natriuret Pep Total Protein Albumin Arterial Blood Glucose Urine WBC (Auto) 12/02/19 12/02/19 12/02/19 12:58 17:58 23:36 WBC RBC Hgb Hct MCHC RDW MCV MCH Lymph % (Auto) [place] % (Auto) [place] # Eos # Lymph # (Auto) [place] # (Auto) Eos # (Auto) Seg Neutrophils % Seg Neuts % (Manual) Baso # (Auto) Lymphocytes % (Manual) Monocytes % (Manual) Eosinophils % (Manual) Basophils % (Manual) Seg Neutrophils # Seg Neutrophils # Man Lymphocytes # (Manual) Monocytes # (Manual) Eosinophils # (Manual) Nucleated RBC % Basophils # (Manual) PT INR APTT Heparin Anti-Xa Level ABG pH POC ABG pO2 78.1 L ABG pO2 ABG HCO3 ABG O2 Saturation ABG Base Excess POC ABG pCO2 ABG Hemoglobin ABG Oxyhemoglobin ABG Glucose Oxyhemoglobin Sodium Potassium Chloride Carbon Dioxide BUN Creatinine Glucose POC Glucose 120 H 123 H Lactic Acid Calcium Phosphorus Magnesium AST ALT Lactate Dehydrogenase CK-MB (CK-2) C-Reactive Protein NT-Pro-B Natriuret Pep Total Protein Albumin Arterial Blood Glucose Urine WBC (Auto) 12/03/19 12/03/19 12/03/19 06:03 06:14 11:46 WBC RBC Hgb Hct MCHC RDW MCV MCH Lymph % (Auto) [place] % (Auto) [place] # Eos # Lymph # (Auto) [place] # (Auto) Eos # (Auto) Seg Neutrophils % Seg Neuts % (Manual) Baso # (Auto) Lymphocytes % (Manual) Monocytes % (Manual) Eosinophils % (Manual) Basophils % (Manual) Seg Neutrophils # Seg Neutrophils # Man Lymphocytes # (Manual) Monocytes # (Manual) Eosinophils # (Manual) Nucleated RBC % Basophils # (Manual) PT INR APTT Heparin Anti-Xa Level ABG pH POC ABG pO2 ABG pO2 ABG HCO3 ABG O2 Saturation ABG Base Excess POC ABG pCO2 ABG Hemoglobin ABG Oxyhemoglobin ABG Glucose Oxyhemoglobin Sodium Potassium Chloride Carbon Dioxide BUN Creatinine Glucose POC Glucose 142 H 130 H Lactic Acid Calcium Phosphorus Magnesium AST ALT Lactate Dehydrogenase CK-MB (CK-2) C-Reactive Protein NT-Pro-B Natriuret Pep Total Protein Albumin Arterial Blood Glucose Urine WBC (Auto) 8.0 H 12/03/19 12/03/19 12/04/19 15:50 17:39 00:04 WBC RBC Hgb Hct MCHC RDW MCV MCH Lymph % (Auto) [place] % (Auto) [place] # Eos # Lymph # (Auto) [place] # (Auto) Eos # (Auto) Seg Neutrophils % Seg Neuts % (Manual) Baso # (Auto) Lymphocytes % (Manual) Monocytes % (Manual) Eosinophils % (Manual) Basophils % (Manual) Seg Neutrophils # Seg Neutrophils # Man Lymphocytes # (Manual) Monocytes # (Manual) Eosinophils # (Manual) Nucleated RBC % Basophils # (Manual) PT INR APTT Heparin Anti-Xa Level ABG pH POC ABG pO2 ABG pO2 ABG HCO3 ABG O2 Saturation ABG Base Excess POC ABG pCO2 ABG Hemoglobin ABG Oxyhemoglobin ABG Glucose Oxyhemoglobin Sodium Potassium Chloride Carbon Dioxide BUN Creatinine Glucose POC Glucose 146 H 133 H Lactic Acid Calcium Phosphorus 2.40 L Magnesium AST ALT Lactate Dehydrogenase CK-MB (CK-2) C-Reactive Protein NT-Pro-B Natriuret Pep Total Protein Albumin Arterial Blood Glucose Urine WBC (Auto) 12/04/19 12/04/19 12/04/19 03:58 03:58 05:22 WBC 12.5 H RBC Hgb 11.2 L Hct 35.2 L MCHC RDW 16.0 H MCV MCH Lymph % (Auto) [place] % (Auto) 9.6 H [place] # 1.2 H Eos # 0.5 H Lymph # (Auto) [place] # (Auto) Eos # (Auto) Seg Neutrophils % Seg Neuts % (Manual) Baso # (Auto) Lymphocytes % (Manual) Monocytes % (Manual) Eosinophils % (Manual) Basophils % (Manual) Seg Neutrophils # 8.6 H Seg Neutrophils # Man Lymphocytes # (Manual) Monocytes # (Manual) Eosinophils # (Manual) Nucleated RBC % Basophils # (Manual) PT INR APTT Heparin Anti-Xa Level ABG pH POC ABG pO2 ABG pO2 ABG HCO3 ABG O2 Saturation ABG Base Excess POC ABG pCO2 ABG Hemoglobin ABG Oxyhemoglobin ABG Glucose Oxyhemoglobin Sodium 146 H Potassium Chloride 108.6 H Carbon Dioxide BUN 30 H Creatinine 0.7 L Glucose 121 H POC Glucose 132 H Lactic Acid Calcium Phosphorus Magnesium AST ALT Lactate Dehydrogenase CK-MB (CK-2) C-Reactive Protein NT-Pro-B Natriuret Pep Total Protein Albumin Arterial Blood Glucose Urine WBC (Auto) 12/04/19 12/04/19 12/05/19 13:26 18:43 00:19 WBC RBC Hgb Hct MCHC RDW MCV MCH Lymph % (Auto) [place] % (Auto) [place] # Eos # Lymph # (Auto) [place] # (Auto) Eos # (Auto) Seg Neutrophils % Seg Neuts % (Manual) Baso # (Auto) Lymphocytes % (Manual) Monocytes % (Manual) Eosinophils % (Manual) Basophils % (Manual) Seg Neutrophils # Seg Neutrophils # Man Lymphocytes # (Manual) Monocytes # (Manual) Eosinophils # (Manual) Nucleated RBC % Basophils # (Manual) PT INR APTT Heparin Anti-Xa Level ABG pH POC ABG pO2 ABG pO2 ABG HCO3 ABG O2 Saturation ABG Base Excess POC ABG pCO2 ABG Hemoglobin ABG Oxyhemoglobin ABG Glucose Oxyhemoglobin Sodium Potassium Chloride Carbon Dioxide BUN Creatinine Glucose POC Glucose 185 H 156 H 150 H Lactic Acid Calcium Phosphorus Magnesium AST ALT Lactate Dehydrogenase CK-MB (CK-2) C-Reactive Protein NT-Pro-B Natriuret Pep Total Protein Albumin Arterial Blood Glucose Urine WBC (Auto) 12/05/19 12/05/19 12/05/19 03:37 03:37 05:14 WBC 16.3 H RBC Hgb 11.4 L Hct MCHC RDW 15.6 H MCV MCH Lymph % (Auto) 9.9 L [place] % (Auto) 9.7 H [place] # 1.6 H Eos # Lymph # (Auto) [place] # (Auto) Eos # (Auto) Seg Neutrophils % 78.0 H Seg Neuts % (Manual) Baso # (Auto) Lymphocytes % (Manual) Monocytes % (Manual) Eosinophils % (Manual) Basophils % (Manual) Seg Neutrophils # 12.7 H Seg Neutrophils # Man Lymphocytes # (Manual) Monocytes # (Manual) Eosinophils # (Manual) Nucleated RBC % Basophils # (Manual) PT INR APTT Heparin Anti-Xa Level ABG pH POC ABG pO2 ABG pO2 ABG HCO3 ABG O2 Saturation ABG Base Excess POC ABG pCO2 ABG Hemoglobin ABG Oxyhemoglobin ABG Glucose Oxyhemoglobin Sodium 146 H Potassium Chloride 107.2 H Carbon Dioxide BUN 27 H Creatinine 0.7 L Glucose 171 H POC Glucose 168 H Lactic Acid Calcium Phosphorus Magnesium AST ALT Lactate Dehydrogenase CK-MB (CK-2) C-Reactive Protein NT-Pro-B Natriuret Pep Total Protein Albumin Arterial Blood Glucose Urine WBC (Auto) 12/05/19 12/05/19 12/05/19 12:31 18:10 23:58 WBC RBC Hgb Hct MCHC RDW MCV MCH Lymph % (Auto) [place] % (Auto) [place] # Eos # Lymph # (Auto) [place] # (Auto) Eos # (Auto) Seg Neutrophils % Seg Neuts % (Manual) Baso # (Auto) Lymphocytes % (Manual) Monocytes % (Manual) Eosinophils % (Manual) Basophils % (Manual) Seg Neutrophils # Seg Neutrophils # Man Lymphocytes # (Manual) Monocytes # (Manual) Eosinophils # (Manual) Nucleated RBC % Basophils # (Manual) PT INR APTT Heparin Anti-Xa Level ABG pH POC ABG pO2 ABG pO2 ABG HCO3 ABG O2 Saturation ABG Base Excess POC ABG pCO2 ABG Hemoglobin ABG Oxyhemoglobin ABG Glucose Oxyhemoglobin Sodium Potassium Chloride Carbon Dioxide BUN Creatinine Glucose POC Glucose 159 H 198 H 115 H Lactic Acid Calcium Phosphorus Magnesium AST ALT Lactate Dehydrogenase CK-MB (CK-2) C-Reactive Protein NT-Pro-B Natriuret Pep Total Protein Albumin Arterial Blood Glucose Urine WBC (Auto) 12/06/19 12/06/19 12/06/19 05:24 05:24 05:25 WBC 14.9 H RBC Hgb 10.8 L Hct 34.0 L MCHC RDW 15.6 H MCV MCH Lymph % (Auto) 10.7 L [place] % (Auto) 8.3 H [place] # 1.2 H Eos # Lymph # (Auto) [place] # (Auto) Eos # (Auto) Seg Neutrophils % 78.7 H Seg Neuts % (Manual) Baso # (Auto) Lymphocytes % (Manual) Monocytes % (Manual) Eosinophils % (Manual) Basophils % (Manual) Seg Neutrophils # 11.7 H Seg Neutrophils # Man Lymphocytes # (Manual) Monocytes # (Manual) Eosinophils # (Manual) Nucleated RBC % Basophils # (Manual) PT INR APTT Heparin Anti-Xa Level ABG pH POC ABG pO2 ABG pO2 ABG HCO3 ABG O2 Saturation ABG Base Excess POC ABG pCO2 ABG Hemoglobin ABG Oxyhemoglobin ABG Glucose Oxyhemoglobin Sodium 148 H Potassium 5.1 H Chloride 107.6 H Carbon Dioxide BUN 27 H Creatinine 0.7 L Glucose 155 H POC Glucose 157 H Lactic Acid Calcium Phosphorus Magnesium AST ALT Lactate Dehydrogenase CK-MB (CK-2) C-Reactive Protein NT-Pro-B Natriuret Pep Total Protein Albumin Arterial Blood Glucose Urine WBC (Auto) 12/07/19 12/07/19 12/07/19 00:13 05:34 11:33 WBC RBC Hgb Hct MCHC RDW MCV MCH Lymph % (Auto) [place] % (Auto) [place] # Eos # Lymph # (Auto) [place] # (Auto) Eos # (Auto) Seg Neutrophils % Seg Neuts % (Manual) Baso # (Auto) Lymphocytes % (Manual) Monocytes % (Manual) Eosinophils % (Manual) Basophils % (Manual) Seg Neutrophils # Seg Neutrophils # Man Lymphocytes # (Manual) Monocytes # (Manual) Eosinophils # (Manual) Nucleated RBC % Basophils # (Manual) PT INR APTT Heparin Anti-Xa Level ABG pH POC ABG pO2 ABG pO2 ABG HCO3 ABG O2 Saturation ABG Base Excess POC ABG pCO2 ABG Hemoglobin ABG Oxyhemoglobin ABG Glucose Oxyhemoglobin Sodium Potassium Chloride Carbon Dioxide BUN Creatinine Glucose POC Glucose 142 H 111 H 169 H Lactic Acid Calcium Phosphorus Magnesium AST ALT Lactate Dehydrogenase CK-MB (CK-2) C-Reactive Protein NT-Pro-B Natriuret Pep Total Protein Albumin Arterial Blood Glucose Urine WBC (Auto) 12/07/19 12/07/19 12/07/19 12:41 13:25 18:19 WBC 12.4 H RBC 3.53 L Hgb 10.2 L Hct 32.1 L MCHC RDW 15.3 H MCV MCH Lymph % (Auto) 10.6 L [place] % (Auto) 7.8 H [place] # 1.0 H Eos # Lymph # (Auto) [place] # (Auto) Eos # (Auto) Seg Neutrophils % 77.6 H Seg Neuts % (Manual) Baso # (Auto) Lymphocytes % (Manual) Monocytes % (Manual) Eosinophils % (Manual) Basophils % (Manual) Seg Neutrophils # 9.6 H Seg Neutrophils # Man Lymphocytes # (Manual) Monocytes # (Manual) Eosinophils # (Manual) Nucleated RBC % Basophils # (Manual) PT INR APTT Heparin Anti-Xa Level ABG pH POC ABG pO2 ABG pO2 ABG HCO3 ABG O2 Saturation ABG Base Excess POC ABG pCO2 ABG Hemoglobin ABG Oxyhemoglobin ABG Glucose Oxyhemoglobin Sodium 149 H Potassium Chloride 108.4 H Carbon Dioxide BUN 26 H Creatinine 0.6 L Glucose 149 H POC Glucose 164 H Lactic Acid Calcium Phosphorus Magnesium 2.60 H AST 121 H ALT 145 H Lactate Dehydrogenase CK-MB (CK-2) C-Reactive Protein NT-Pro-B Natriuret Pep Total Protein Albumin 2.6 L Arterial Blood Glucose Urine WBC (Auto) 12/07/19 12/08/19 12/08/19 22:25 00:02 03:55 WBC 13.3 H RBC 3.40 L Hgb 9.7 L Hct 30.8 L MCHC 31 L RDW 15.5 H MCV MCH Lymph % (Auto) [place] % (Auto) 8.1 H [place] # 1.1 H Eos # Lymph # (Auto) [place] # (Auto) Eos # (Auto) Seg Neutrophils % 73.0 H Seg Neuts % (Manual) Baso # (Auto) Lymphocytes % (Manual) Monocytes % (Manual) Eosinophils % (Manual) Basophils % (Manual) Seg Neutrophils # 9.7 H Seg Neutrophils # Man Lymphocytes # (Manual) Monocytes # (Manual) Eosinophils # (Manual) Nucleated RBC % Basophils # (Manual) PT INR APTT Heparin Anti-Xa Level 0.12 L ABG pH POC ABG pO2 ABG pO2 ABG HCO3 ABG O2 Saturation ABG Base Excess POC ABG pCO2 ABG Hemoglobin ABG Oxyhemoglobin ABG Glucose Oxyhemoglobin Sodium Potassium Chloride Carbon Dioxide BUN Creatinine Glucose POC Glucose 151 H Lactic Acid Calcium Phosphorus Magnesium AST ALT Lactate Dehydrogenase CK-MB (CK-2) C-Reactive Protein NT-Pro-B Natriuret Pep Total Protein Albumin Arterial Blood Glucose Urine WBC (Auto) 12/08/19 12/08/19 12/08/19 03:55 05:21 06:01 WBC RBC Hgb Hct MCHC RDW MCV MCH Lymph % (Auto) [place] % (Auto) [place] # Eos # Lymph # (Auto) [place] # (Auto) Eos # (Auto) Seg Neutrophils % Seg Neuts % (Manual) Baso # (Auto) Lymphocytes % (Manual) Monocytes % (Manual) Eosinophils % (Manual) Basophils % (Manual) Seg Neutrophils # Seg Neutrophils # Man Lymphocytes # (Manual) Monocytes # (Manual) Eosinophils # (Manual) Nucleated RBC % Basophils # (Manual) PT INR APTT Heparin Anti-Xa Level 0.20 L ABG pH POC ABG pO2 ABG pO2 ABG HCO3 ABG O2 Saturation ABG Base Excess POC ABG pCO2 ABG Hemoglobin ABG Oxyhemoglobin ABG Glucose Oxyhemoglobin Sodium 149 H Potassium Chloride 108.0 H Carbon Dioxide BUN 28 H Creatinine 0.6 L Glucose 144 H POC Glucose 143 H Lactic Acid Calcium Phosphorus Magnesium AST 98 H ALT 145 H Lactate Dehydrogenase CK-MB (CK-2) C-Reactive Protein NT-Pro-B Natriuret Pep Total Protein 6.0 L Albumin 2.4 L Arterial Blood Glucose Urine WBC (Auto) 12/08/19 12/08/19 12/08/19 12:08 18:11 23:53 WBC RBC Hgb Hct MCHC RDW MCV MCH Lymph % (Auto) [place] % (Auto) [place] # Eos # Lymph # (Auto) [place] # (Auto) Eos # (Auto) Seg Neutrophils % Seg Neuts % (Manual) Baso # (Auto) Lymphocytes % (Manual) Monocytes % (Manual) Eosinophils % (Manual) Basophils % (Manual) Seg Neutrophils # Seg Neutrophils # Man Lymphocytes # (Manual) Monocytes # (Manual) Eosinophils # (Manual) Nucleated RBC % Basophils # (Manual) PT INR APTT Heparin Anti-Xa Level ABG pH POC ABG pO2 ABG pO2 ABG HCO3 ABG O2 Saturation ABG Base Excess POC ABG pCO2 ABG Hemoglobin ABG Oxyhemoglobin ABG Glucose Oxyhemoglobin Sodium Potassium Chloride Carbon Dioxide BUN Creatinine Glucose POC Glucose 172 H 122 H 162 H Lactic Acid Calcium Phosphorus Magnesium AST ALT Lactate Dehydrogenase CK-MB (CK-2) C-Reactive Protein NT-Pro-B Natriuret Pep Total Protein Albumin Arterial Blood Glucose Urine WBC (Auto) 12/09/19 12/09/19 12/09/19 04:03 04:03 05:53 WBC RBC Hgb 9.1 L Hct 28.9 L MCHC RDW MCV MCH Lymph % (Auto) [place] % (Auto) [place] # Eos # Lymph # (Auto) [place] # (Auto) Eos # (Auto) Seg Neutrophils % Seg Neuts % (Manual) Baso # (Auto) Lymphocytes % (Manual) Monocytes % (Manual) Eosinophils % (Manual) Basophils % (Manual) Seg Neutrophils # Seg Neutrophils # Man Lymphocytes # (Manual) Monocytes # (Manual) Eosinophils # (Manual) Nucleated RBC % Basophils # (Manual) PT INR APTT Heparin Anti-Xa Level 0.15 L ABG pH POC ABG pO2 ABG pO2 ABG HCO3 ABG O2 Saturation ABG Base Excess POC ABG pCO2 ABG Hemoglobin ABG Oxyhemoglobin ABG Glucose Oxyhemoglobin Sodium Potassium Chloride Carbon Dioxide BUN Creatinine Glucose POC Glucose 124 H Lactic Acid Calcium Phosphorus Magnesium AST ALT Lactate Dehydrogenase CK-MB (CK-2) C-Reactive Protein NT-Pro-B Natriuret Pep Total Protein Albumin Arterial Blood Glucose Urine WBC (Auto) 12/09/19 12/09/19 12/10/19 09:43 12:41 00:13 WBC RBC Hgb Hct MCHC RDW MCV MCH Lymph % (Auto) [place] % (Auto) [place] # Eos # Lymph # (Auto) [place] # (Auto) Eos # (Auto) Seg Neutrophils % Seg Neuts % (Manual) Baso # (Auto) Lymphocytes % (Manual) Monocytes % (Manual) Eosinophils % (Manual) Basophils % (Manual) Seg Neutrophils # Seg Neutrophils # Man Lymphocytes # (Manual) Monocytes # (Manual) Eosinophils # (Manual) Nucleated RBC % Basophils # (Manual) PT INR APTT Heparin Anti-Xa Level ABG pH POC ABG pO2 ABG pO2 ABG HCO3 ABG O2 Saturation ABG Base Excess POC ABG pCO2 ABG Hemoglobin ABG Oxyhemoglobin ABG Glucose Oxyhemoglobin Sodium Potassium Chloride Carbon Dioxide BUN 25 H Creatinine 0.6 L Glucose 131 H POC Glucose 109 H 120 H Lactic Acid Calcium Phosphorus Magnesium AST ALT Lactate Dehydrogenase CK-MB (CK-2) C-Reactive Protein NT-Pro-B Natriuret Pep Total Protein Albumin Arterial Blood Glucose Urine WBC (Auto) 12/10/19 12/10/19 12/10/19 04:14 04:14 12:00 WBC 13.3 H RBC 3.34 L Hgb 9.6 L Hct 30.4 L MCHC RDW 15.4 H MCV MCH Lymph % (Auto) [place] % (Auto) [place] # Eos # Lymph # (Auto) [place] # (Auto) Eos # (Auto) Seg Neutrophils % Seg Neuts % (Manual) 75.0 H Baso # (Auto) Lymphocytes % (Manual) 13.0 L Monocytes % (Manual) 8.0 H Eosinophils % (Manual) Basophils % (Manual) 2.0 H Seg Neutrophils # Seg Neutrophils # Man 10.0 H Lymphocytes # (Manual) Monocytes # (Manual) 1.1 H Eosinophils # (Manual) Nucleated RBC % Basophils # (Manual) 0.3 H PT INR APTT Heparin Anti-Xa Level ABG pH POC ABG pO2 ABG pO2 ABG HCO3 ABG O2 Saturation ABG Base Excess POC ABG pCO2 ABG Hemoglobin ABG Oxyhemoglobin ABG Glucose Oxyhemoglobin Sodium 147 H Potassium Chloride 108.3 H Carbon Dioxide BUN 21 H Creatinine 0.6 L Glucose 104 H POC Glucose 133 H Lactic Acid Calcium Phosphorus Magnesium AST ALT Lactate Dehydrogenase CK-MB (CK-2) C-Reactive Protein NT-Pro-B Natriuret Pep Total Protein Albumin Arterial Blood Glucose Urine WBC (Auto) 12/10/19 12/10/19 12/11/19 18:44 21:20 00:08 WBC 14.9 H RBC 3.36 L Hgb 9.6 L Hct 30.5 L MCHC RDW 15.4 H MCV MCH Lymph % (Auto) [place] % (Auto) [place] # Eos # Lymph # (Auto) [place] # (Auto) Eos # (Auto) Seg Neutrophils % Seg Neuts % (Manual) Baso # (Auto) Lymphocytes % (Manual) Monocytes % (Manual) Eosinophils % (Manual) Basophils % (Manual) Seg Neutrophils # Seg Neutrophils # Man Lymphocytes # (Manual) Monocytes # (Manual) Eosinophils # (Manual) Nucleated RBC % Basophils # (Manual) PT INR APTT Heparin Anti-Xa Level ABG pH POC ABG pO2 ABG pO2 ABG HCO3 ABG O2 Saturation ABG Base Excess POC ABG pCO2 ABG Hemoglobin ABG Oxyhemoglobin ABG Glucose Oxyhemoglobin Sodium Potassium Chloride Carbon Dioxide BUN Creatinine Glucose POC Glucose 119 H 134 H Lactic Acid Calcium Phosphorus Magnesium AST ALT Lactate Dehydrogenase CK-MB (CK-2) C-Reactive Protein NT-Pro-B Natriuret Pep Total Protein Albumin Arterial Blood Glucose Urine WBC (Auto) 12/11/19 12/11/19 12/11/19 03:54 07:28 08:36 WBC 11.9 H RBC 3.25 L Hgb 9.6 L Hct 29.2 L MCHC RDW 15.7 H MCV MCH Lymph % (Auto) [place] % (Auto) [place] # Eos # Lymph # (Auto) [place] # (Auto) Eos # (Auto) Seg Neutrophils % Seg Neuts % (Manual) Baso # (Auto) Lymphocytes % (Manual) Monocytes % (Manual) Eosinophils % (Manual) Basophils % (Manual) Seg Neutrophils # Seg Neutrophils # Man Lymphocytes # (Manual) Monocytes # (Manual) Eosinophils # (Manual) Nucleated RBC % Basophils # (Manual) PT INR APTT Heparin Anti-Xa Level 0.10 L 0.16 L ABG pH POC ABG pO2 ABG pO2 ABG HCO3 ABG O2 Saturation ABG Base Excess POC ABG pCO2 ABG Hemoglobin ABG Oxyhemoglobin ABG Glucose Oxyhemoglobin Sodium Potassium Chloride Carbon Dioxide BUN Creatinine Glucose POC Glucose Lactic Acid Calcium Phosphorus Magnesium AST ALT Lactate Dehydrogenase CK-MB (CK-2) C-Reactive Protein NT-Pro-B Natriuret Pep Total Protein Albumin Arterial Blood Glucose Urine WBC (Auto) 12/11/19 12/11/19 12/11/19 08:36 11:45 17:15 WBC RBC Hgb Hct MCHC RDW MCV MCH Lymph % (Auto) [place] % (Auto) [place] # Eos # Lymph # (Auto) [place] # (Auto) Eos # (Auto) Seg Neutrophils % Seg Neuts % (Manual) Baso # (Auto) Lymphocytes % (Manual) Monocytes % (Manual) Eosinophils % (Manual) Basophils % (Manual) Seg Neutrophils # Seg Neutrophils # Man Lymphocytes # (Manual) Monocytes # (Manual) Eosinophils # (Manual) Nucleated RBC % Basophils # (Manual) PT INR APTT Heparin Anti-Xa Level ABG pH POC ABG pO2 ABG pO2 ABG HCO3 ABG O2 Saturation ABG Base Excess POC ABG pCO2 ABG Hemoglobin ABG Oxyhemoglobin ABG Glucose Oxyhemoglobin Sodium Potassium Chloride Carbon Dioxide BUN Creatinine 0.5 L Glucose 128 H POC Glucose 136 H 109 H Lactic Acid Calcium Phosphorus Magnesium AST ALT Lactate Dehydrogenase CK-MB (CK-2) C-Reactive Protein NT-Pro-B Natriuret Pep Total Protein Albumin Arterial Blood Glucose Urine WBC (Auto) 12/12/19 12/12/19 12/12/19 00:03 05:53 05:53 WBC RBC Hgb 8.8 L Hct 27.6 L MCHC RDW MCV MCH Lymph % (Auto) [place] % (Auto) [place] # Eos # Lymph # (Auto) [place] # (Auto) Eos # (Auto) Seg Neutrophils % Seg Neuts % (Manual) Baso # (Auto) Lymphocytes % (Manual) Monocytes % (Manual) Eosinophils % (Manual) Basophils % (Manual) Seg Neutrophils # Seg Neutrophils # Man Lymphocytes # (Manual) Monocytes # (Manual) Eosinophils # (Manual) Nucleated RBC % Basophils # (Manual) PT INR APTT Heparin Anti-Xa Level 0.22 L ABG pH POC ABG pO2 ABG pO2 ABG HCO3 ABG O2 Saturation ABG Base Excess POC ABG pCO2 ABG Hemoglobin ABG Oxyhemoglobin ABG Glucose Oxyhemoglobin Sodium Potassium Chloride Carbon Dioxide BUN Creatinine Glucose POC Glucose 116 H Lactic Acid Calcium Phosphorus Magnesium AST ALT Lactate Dehydrogenase CK-MB (CK-2) C-Reactive Protein NT-Pro-B Natriuret Pep Total Protein Albumin Arterial Blood Glucose Urine WBC (Auto) 12/12/19 12/12/19 12/12/19 09:38 12:18 17:44 WBC RBC Hgb Hct MCHC RDW MCV MCH Lymph % (Auto) [place] % (Auto) [place] # Eos # Lymph # (Auto) [place] # (Auto) Eos # (Auto) Seg Neutrophils % Seg Neuts % (Manual) Baso # (Auto) Lymphocytes % (Manual) Monocytes % (Manual) Eosinophils % (Manual) Basophils % (Manual) Seg Neutrophils # Seg Neutrophils # Man Lymphocytes # (Manual) Monocytes # (Manual) Eosinophils # (Manual) Nucleated RBC % Basophils # (Manual) PT INR APTT Heparin Anti-Xa Level ABG pH POC ABG pO2 ABG pO2 ABG HCO3 ABG O2 Saturation ABG Base Excess POC ABG pCO2 ABG Hemoglobin ABG Oxyhemoglobin ABG Glucose Oxyhemoglobin Sodium Potassium Chloride Carbon Dioxide BUN Creatinine Glucose POC Glucose 115 H 146 H 146 H Lactic Acid Calcium Phosphorus Magnesium AST ALT Lactate Dehydrogenase CK-MB (CK-2) C-Reactive Protein NT-Pro-B Natriuret Pep Total Protein Albumin Arterial Blood Glucose Urine WBC (Auto) 12/12/19 12/13/19 12/13/19 23:33 05:32 05:32 WBC 13.1 H RBC 3.27 L Hgb 9.5 L Hct 29.3 L MCHC RDW 15.6 H MCV MCH Lymph % (Auto) [place] % (Auto) [place] # Eos # Lymph # (Auto) [place] # (Auto) Eos # (Auto) Seg Neutrophils % Seg Neuts % (Manual) 74.0 H Baso # (Auto) Lymphocytes % (Manual) 8.0 L Monocytes % (Manual) 9.0 H Eosinophils % (Manual) 5.0 H Basophils % (Manual) Seg Neutrophils # Seg Neutrophils # Man 9.7 H Lymphocytes # (Manual) 1.0 L Monocytes # (Manual) 1.2 H Eosinophils # (Manual) 0.7 H Nucleated RBC % Basophils # (Manual) PT INR APTT Heparin Anti-Xa Level 0.20 L ABG pH POC ABG pO2 ABG pO2 ABG HCO3 ABG O2 Saturation ABG Base Excess POC ABG pCO2 ABG Hemoglobin ABG Oxyhemoglobin ABG Glucose Oxyhemoglobin Sodium Potassium Chloride Carbon Dioxide BUN Creatinine Glucose POC Glucose 126 H Lactic Acid Calcium Phosphorus Magnesium AST ALT Lactate Dehydrogenase CK-MB (CK-2) C-Reactive Protein NT-Pro-B Natriuret Pep Total Protein Albumin Arterial Blood Glucose Urine WBC (Auto) 12/13/19 12/13/19 12/13/19 05:32 05:46 11:57 WBC RBC Hgb Hct MCHC RDW MCV MCH Lymph % (Auto) [place] % (Auto) [place] # Eos # Lymph # (Auto) [place] # (Auto) Eos # (Auto) Seg Neutrophils % Seg Neuts % (Manual) Baso # (Auto) Lymphocytes % (Manual) Monocytes % (Manual) Eosinophils % (Manual) Basophils % (Manual) Seg Neutrophils # Seg Neutrophils # Man Lymphocytes # (Manual) Monocytes # (Manual) Eosinophils # (Manual) Nucleated RBC % Basophils # (Manual) PT INR APTT Heparin Anti-Xa Level ABG pH POC ABG pO2 ABG pO2 ABG HCO3 ABG O2 Saturation ABG Base Excess POC ABG pCO2 ABG Hemoglobin ABG Oxyhemoglobin ABG Glucose Oxyhemoglobin Sodium Potassium Chloride Carbon Dioxide 31 H BUN Creatinine 0.6 L Glucose 114 H POC Glucose 118 H 133 H Lactic Acid Calcium Phosphorus Magnesium AST ALT Lactate Dehydrogenase CK-MB (CK-2) C-Reactive Protein NT-Pro-B Natriuret Pep Total Protein Albumin Arterial Blood Glucose Urine WBC (Auto) 12/13/19 12/13/19 12/14/19 17:44 23:46 05:32 WBC RBC Hgb Hct MCHC RDW MCV MCH Lymph % (Auto) [place] % (Auto) [place] # Eos # Lymph # (Auto) [place] # (Auto) Eos # (Auto) Seg Neutrophils % Seg Neuts % (Manual) Baso # (Auto) Lymphocytes % (Manual) Monocytes % (Manual) Eosinophils % (Manual) Basophils % (Manual) Seg Neutrophils # Seg Neutrophils # Man Lymphocytes # (Manual) Monocytes # (Manual) Eosinophils # (Manual) Nucleated RBC % Basophils # (Manual) PT INR APTT Heparin Anti-Xa Level ABG pH POC ABG pO2 ABG pO2 ABG HCO3 ABG O2 Saturation ABG Base Excess POC ABG pCO2 ABG Hemoglobin ABG Oxyhemoglobin ABG Glucose Oxyhemoglobin Sodium Potassium Chloride Carbon Dioxide BUN Creatinine Glucose POC Glucose 161 H 126 H 139 H Lactic Acid Calcium Phosphorus Magnesium AST ALT Lactate Dehydrogenase CK-MB (CK-2) C-Reactive Protein NT-Pro-B Natriuret Pep Total Protein Albumin Arterial Blood Glucose Urine WBC (Auto) 12/14/19 12/14/19 12/14/19 06:03 06:03 09:37 WBC RBC Hgb 9.6 L Hct 30.4 L MCHC RDW MCV MCH Lymph % (Auto) [place] % (Auto) [place] # Eos # Lymph # (Auto) [place] # (Auto) Eos # (Auto) Seg Neutrophils % Seg Neuts % (Manual) Baso # (Auto) Lymphocytes % (Manual) Monocytes % (Manual) Eosinophils % (Manual) Basophils % (Manual) Seg Neutrophils # Seg Neutrophils # Man Lymphocytes # (Manual) Monocytes # (Manual) Eosinophils # (Manual) Nucleated RBC % Basophils # (Manual) PT INR APTT Heparin Anti-Xa Level 0.24 L ABG pH POC ABG pO2 ABG pO2 ABG HCO3 ABG O2 Saturation ABG Base Excess POC ABG pCO2 ABG Hemoglobin ABG Oxyhemoglobin ABG Glucose Oxyhemoglobin Sodium Potassium Chloride Carbon Dioxide BUN Creatinine 0.6 L Glucose 162 H POC Glucose Lactic Acid Calcium Phosphorus Magnesium AST 71 H ALT 118 H Lactate Dehydrogenase CK-MB (CK-2) C-Reactive Protein NT-Pro-B Natriuret Pep Total Protein 6.2 L Albumin 2.3 L Arterial Blood Glucose Urine WBC (Auto) 12/14/19 12/14/19 12/15/19 12:06 18:18 00:19 WBC RBC Hgb Hct MCHC RDW MCV MCH Lymph % (Auto) [place] % (Auto) [place] # Eos # Lymph # (Auto) [place] # (Auto) Eos # (Auto) Seg Neutrophils % Seg Neuts % (Manual) Baso # (Auto) Lymphocytes % (Manual) Monocytes % (Manual) Eosinophils % (Manual) Basophils % (Manual) Seg Neutrophils # Seg Neutrophils # Man Lymphocytes # (Manual) Monocytes # (Manual) Eosinophils # (Manual) Nucleated RBC % Basophils # (Manual) PT INR APTT Heparin Anti-Xa Level ABG pH POC ABG pO2 ABG pO2 ABG HCO3 ABG O2 Saturation ABG Base Excess POC ABG pCO2 ABG Hemoglobin ABG Oxyhemoglobin ABG Glucose Oxyhemoglobin Sodium Potassium Chloride Carbon Dioxide BUN Creatinine Glucose POC Glucose 147 H 166 H 123 H Lactic Acid Calcium Phosphorus Magnesium AST ALT Lactate Dehydrogenase CK-MB (CK-2) C-Reactive Protein NT-Pro-B Natriuret Pep Total Protein Albumin Arterial Blood Glucose Urine WBC (Auto) 12/15/19 12/15/19 12/15/19 05:28 05:29 05:29 WBC 14.9 H RBC 3.19 L Hgb 9.1 L Hct 28.7 L MCHC RDW 16.0 H MCV MCH Lymph % (Auto) [place] % (Auto) [place] # Eos # Lymph # (Auto) [place] # (Auto) Eos # (Auto) Seg Neutrophils % Seg Neuts % (Manual) Baso # (Auto) Lymphocytes % (Manual) Monocytes % (Manual) Eosinophils % (Manual) Basophils % (Manual) Seg Neutrophils # Seg Neutrophils # Man Lymphocytes # (Manual) Monocytes # (Manual) Eosinophils # (Manual) Nucleated RBC % Basophils # (Manual) PT INR APTT Heparin Anti-Xa Level 0.19 L ABG pH POC ABG pO2 ABG pO2 ABG HCO3 ABG O2 Saturation ABG Base Excess POC ABG pCO2 ABG Hemoglobin ABG Oxyhemoglobin ABG Glucose Oxyhemoglobin Sodium Potassium Chloride Carbon Dioxide BUN Creatinine 0.6 L Glucose 110 H POC Glucose Lactic Acid Calcium Phosphorus Magnesium AST ALT Lactate Dehydrogenase CK-MB (CK-2) C-Reactive Protein NT-Pro-B Natriuret Pep Total Protein Albumin Arterial Blood Glucose Urine WBC (Auto) 12/15/19 12/15/19 12/15/19 05:53 11:50 17:26 WBC RBC Hgb Hct MCHC RDW MCV MCH Lymph % (Auto) [place] % (Auto) [place] # Eos # Lymph # (Auto) [place] # (Auto) Eos # (Auto) Seg Neutrophils % Seg Neuts % (Manual) Baso # (Auto) Lymphocytes % (Manual) Monocytes % (Manual) Eosinophils % (Manual) Basophils % (Manual) Seg Neutrophils # Seg Neutrophils # Man Lymphocytes # (Manual) Monocytes # (Manual) Eosinophils # (Manual) Nucleated RBC % Basophils # (Manual) PT INR APTT Heparin Anti-Xa Level ABG pH POC ABG pO2 ABG pO2 ABG HCO3 ABG O2 Saturation ABG Base Excess POC ABG pCO2 ABG Hemoglobin ABG Oxyhemoglobin ABG Glucose Oxyhemoglobin Sodium Potassium Chloride Carbon Dioxide BUN Creatinine Glucose POC Glucose 119 H 132 H 128 H Lactic Acid Calcium Phosphorus Magnesium AST ALT Lactate Dehydrogenase CK-MB (CK-2) C-Reactive Protein NT-Pro-B Natriuret Pep Total Protein Albumin Arterial Blood Glucose Urine WBC (Auto) 12/15/19 12/16/19 12/16/19 23:11 05:30 05:46 WBC RBC Hgb 8.8 L Hct 27.9 L MCHC RDW MCV MCH Lymph % (Auto) [place] % (Auto) [place] # Eos # Lymph # (Auto) [place] # (Auto) Eos # (Auto) Seg Neutrophils % Seg Neuts % (Manual) Baso # (Auto) Lymphocytes % (Manual) Monocytes % (Manual) Eosinophils % (Manual) Basophils % (Manual) Seg Neutrophils # Seg Neutrophils # Man Lymphocytes # (Manual) Monocytes # (Manual) Eosinophils # (Manual) Nucleated RBC % Basophils # (Manual) PT INR APTT Heparin Anti-Xa Level ABG pH POC ABG pO2 ABG pO2 ABG HCO3 ABG O2 Saturation ABG Base Excess POC ABG pCO2 ABG Hemoglobin ABG Oxyhemoglobin ABG Glucose Oxyhemoglobin Sodium Potassium Chloride Carbon Dioxide BUN Creatinine Glucose POC Glucose 150 H 134 H Lactic Acid Calcium Phosphorus Magnesium AST ALT Lactate Dehydrogenase CK-MB (CK-2) C-Reactive Protein NT-Pro-B Natriuret Pep Total Protein Albumin Arterial Blood Glucose Urine WBC (Auto) 12/16/19 12/16/19 12/16/19 05:46 05:46 11:44 WBC RBC Hgb Hct MCHC RDW MCV MCH Lymph % (Auto) [place] % (Auto) [place] # Eos # Lymph # (Auto) [place] # (Auto) Eos # (Auto) Seg Neutrophils % Seg Neuts % (Manual) Baso # (Auto) Lymphocytes % (Manual) Monocytes % (Manual) Eosinophils % (Manual) Basophils % (Manual) Seg Neutrophils # Seg Neutrophils # Man Lymphocytes # (Manual) Monocytes # (Manual) Eosinophils # (Manual) Nucleated RBC % Basophils # (Manual) PT INR APTT Heparin Anti-Xa Level 0.20 L ABG pH POC ABG pO2 ABG pO2 ABG HCO3 ABG O2 Saturation ABG Base Excess POC ABG pCO2 ABG Hemoglobin ABG Oxyhemoglobin ABG Glucose Oxyhemoglobin Sodium Potassium Chloride Carbon Dioxide 31 H BUN Creatinine 0.5 L Glucose 147 H POC Glucose 164 H Lactic Acid Calcium Phosphorus Magnesium AST ALT Lactate Dehydrogenase CK-MB (CK-2) C-Reactive Protein NT-Pro-B Natriuret Pep Total Protein Albumin Arterial Blood Glucose Urine WBC (Auto) 12/16/19 12/16/19 12/17/19 17:17 23:49 05:30 WBC 13.9 H RBC 3.27 L Hgb 9.4 L Hct 29.2 L MCHC RDW 16.0 H MCV MCH Lymph % (Auto) [place] % (Auto) 8.8 H [place] # Eos # Lymph # (Auto) [place] # (Auto) 1.2 H Eos # (Auto) 0.5 H Seg Neutrophils % 70.5 H Seg Neuts % (Manual) Baso # (Auto) 0.2 H Lymphocytes % (Manual) Monocytes % (Manual) Eosinophils % (Manual) Basophils % (Manual) Seg Neutrophils # 9.8 H Seg Neutrophils # Man Lymphocytes # (Manual) Monocytes # (Manual) Eosinophils # (Manual) Nucleated RBC % Basophils # (Manual) PT INR APTT Heparin Anti-Xa Level ABG pH POC ABG pO2 ABG pO2 ABG HCO3 ABG O2 Saturation ABG Base Excess POC ABG pCO2 ABG Hemoglobin ABG Oxyhemoglobin ABG Glucose Oxyhemoglobin Sodium Potassium Chloride Carbon Dioxide BUN Creatinine Glucose POC Glucose 162 H 144 H Lactic Acid Calcium Phosphorus Magnesium AST ALT Lactate Dehydrogenase CK-MB (CK-2) C-Reactive Protein NT-Pro-B Natriuret Pep Total Protein Albumin Arterial Blood Glucose Urine WBC (Auto) 12/17/19 12/17/19 12/17/19 05:30 06:06 11:50 WBC RBC Hgb Hct MCHC RDW MCV MCH Lymph % (Auto) [place] % (Auto) [place] # Eos # Lymph # (Auto) [place] # (Auto) Eos # (Auto) Seg Neutrophils % Seg Neuts % (Manual) Baso # (Auto) Lymphocytes % (Manual) Monocytes % (Manual) Eosinophils % (Manual) Basophils % (Manual) Seg Neutrophils # Seg Neutrophils # Man Lymphocytes # (Manual) Monocytes # (Manual) Eosinophils # (Manual) Nucleated RBC % Basophils # (Manual) PT INR APTT Heparin Anti-Xa Level ABG pH POC ABG pO2 ABG pO2 ABG HCO3 ABG O2 Saturation ABG Base Excess POC ABG pCO2 ABG Hemoglobin ABG Oxyhemoglobin ABG Glucose Oxyhemoglobin Sodium Potassium Chloride 97.4 L Carbon Dioxide 32 H BUN Creatinine 0.5 L Glucose 135 H POC Glucose 151 H 140 H Lactic Acid Calcium Phosphorus Magnesium AST ALT Lactate Dehydrogenase CK-MB (CK-2) C-Reactive Protein NT-Pro-B Natriuret Pep Total Protein Albumin Arterial Blood Glucose Urine WBC (Auto) 12/17/19 12/17/19 12/18/19 17:50 23:46 05:17 WBC RBC Hgb 8.8 L Hct 28.0 L MCHC RDW MCV MCH Lymph % (Auto) [place] % (Auto) [place] # Eos # Lymph # (Auto) [place] # (Auto) Eos # (Auto) Seg Neutrophils % Seg Neuts % (Manual) Baso # (Auto) Lymphocytes % (Manual) Monocytes % (Manual) Eosinophils % (Manual) Basophils % (Manual) Seg Neutrophils # Seg Neutrophils # Man Lymphocytes # (Manual) Monocytes # (Manual) Eosinophils # (Manual) Nucleated RBC % Basophils # (Manual) PT INR APTT Heparin Anti-Xa Level ABG pH POC ABG pO2 ABG pO2 ABG HCO3 ABG O2 Saturation ABG Base Excess POC ABG pCO2 ABG Hemoglobin ABG Oxyhemoglobin ABG Glucose Oxyhemoglobin Sodium Potassium Chloride Carbon Dioxide BUN Creatinine Glucose POC Glucose 158 H 150 H Lactic Acid Calcium Phosphorus Magnesium AST ALT Lactate Dehydrogenase CK-MB (CK-2) C-Reactive Protein NT-Pro-B Natriuret Pep Total Protein Albumin Arterial Blood Glucose Urine WBC (Auto) 12/18/19 12/18/19 12/18/19 05:17 05:49 11:12 WBC RBC Hgb Hct MCHC RDW MCV MCH Lymph % (Auto) [place] % (Auto) [place] # Eos # Lymph # (Auto) [place] # (Auto) Eos # (Auto) Seg Neutrophils % Seg Neuts % (Manual) Baso # (Auto) Lymphocytes % (Manual) Monocytes % (Manual) Eosinophils % (Manual) Basophils % (Manual) Seg Neutrophils # Seg Neutrophils # Man Lymphocytes # (Manual) Monocytes # (Manual) Eosinophils # (Manual) Nucleated RBC % Basophils # (Manual) PT INR APTT Heparin Anti-Xa Level 0.16 L ABG pH POC ABG pO2 ABG pO2 ABG HCO3 ABG O2 Saturation ABG Base Excess POC ABG pCO2 ABG Hemoglobin ABG Oxyhemoglobin ABG Glucose Oxyhemoglobin Sodium Potassium Chloride Carbon Dioxide BUN Creatinine Glucose POC Glucose 127 H 191 H Lactic Acid Calcium Phosphorus Magnesium AST ALT Lactate Dehydrogenase CK-MB (CK-2) C-Reactive Protein NT-Pro-B Natriuret Pep Total Protein Albumin Arterial Blood Glucose Urine WBC (Auto) 12/18/19 12/18/19 12/19/19 17:03 20:16 00:08 WBC RBC Hgb Hct MCHC RDW MCV MCH Lymph % (Auto) [place] % (Auto) [place] # Eos # Lymph # (Auto) [place] # (Auto) Eos # (Auto) Seg Neutrophils % Seg Neuts % (Manual) Baso # (Auto) Lymphocytes % (Manual) Monocytes % (Manual) Eosinophils % (Manual) Basophils % (Manual) Seg Neutrophils # Seg Neutrophils # Man Lymphocytes # (Manual) Monocytes # (Manual) Eosinophils # (Manual) Nucleated RBC % Basophils # (Manual) PT INR APTT Heparin Anti-Xa Level ABG pH POC ABG pO2 ABG pO2 ABG HCO3 ABG O2 Saturation ABG Base Excess POC ABG pCO2 ABG Hemoglobin ABG Oxyhemoglobin ABG Glucose Oxyhemoglobin Sodium Potassium Chloride Carbon Dioxide BUN Creatinine Glucose POC Glucose 133 H 128 H 129 H Lactic Acid Calcium Phosphorus Magnesium AST ALT Lactate Dehydrogenase CK-MB (CK-2) C-Reactive Protein NT-Pro-B Natriuret Pep Total Protein Albumin Arterial Blood Glucose Urine WBC (Auto) 12/19/19 12/19/19 12/19/19 04:45 04:45 05:35 WBC RBC Hgb Hct MCHC RDW MCV MCH Lymph % (Auto) [place] % (Auto) [place] # Eos # Lymph # (Auto) [place] # (Auto) Eos # (Auto) Seg Neutrophils % Seg Neuts % (Manual) Baso # (Auto) Lymphocytes % (Manual) Monocytes % (Manual) Eosinophils % (Manual) Basophils % (Manual) Seg Neutrophils # Seg Neutrophils # Man Lymphocytes # (Manual) Monocytes # (Manual) Eosinophils # (Manual) Nucleated RBC % Basophils # (Manual) PT INR APTT Heparin Anti-Xa Level 0.17 L ABG pH POC ABG pO2 ABG pO2 ABG HCO3 ABG O2 Saturation ABG Base Excess POC ABG pCO2 ABG Hemoglobin ABG Oxyhemoglobin ABG Glucose Oxyhemoglobin Sodium Potassium Chloride Carbon Dioxide BUN Creatinine Glucose POC Glucose 120 H Lactic Acid Calcium Phosphorus Magnesium AST ALT Lactate Dehydrogenase 228 H CK-MB (CK-2) C-Reactive Protein NT-Pro-B Natriuret Pep Total Protein Albumin Arterial Blood Glucose Urine WBC (Auto) 12/19/19 12/19/19 12/19/19 09:20 11:32 11:32 WBC 14.6 H RBC 3.08 L Hgb 9.0 L Hct 26.8 L MCHC RDW 15.9 H MCV MCH Lymph % (Auto) [place] % (Auto) [place] # Eos # Lymph # (Auto) [place] # (Auto) Eos # (Auto) Seg Neutrophils % Seg Neuts % (Manual) 82.0 H Baso # (Auto) Lymphocytes % (Manual) 10.0 L Monocytes % (Manual) Eosinophils % (Manual) Basophils % (Manual) Seg Neutrophils # Seg Neutrophils # Man 12.0 H Lymphocytes # (Manual) Monocytes # (Manual) 0.9 H Eosinophils # (Manual) Nucleated RBC % 1.0 H Basophils # (Manual) PT INR APTT Heparin Anti-Xa Level ABG pH 7.451 H POC ABG pO2 ABG pO2 62.6 L ABG HCO3 33.2 H ABG O2 Saturation 93.8 L ABG Base Excess 8.3 H POC ABG pCO2 ABG Hemoglobin 8.3 L ABG Oxyhemoglobin ABG Glucose Oxyhemoglobin 91.9 L Sodium Potassium Chloride 95.0 L Carbon Dioxide 33 H BUN 22 H Creatinine 0.6 L Glucose 150 H POC Glucose Lactic Acid Calcium Phosphorus Magnesium AST ALT Lactate Dehydrogenase CK-MB (CK-2) C-Reactive Protein NT-Pro-B Natriuret Pep Total Protein 6.2 L Albumin 2.4 L Arterial Blood Glucose Urine WBC (Auto) 12/19/19 12/19/19 12/20/19 11:56 18:17 00:09 WBC RBC Hgb Hct MCHC RDW MCV MCH Lymph % (Auto) [place] % (Auto) [place] # Eos # Lymph # (Auto) [place] # (Auto) Eos # (Auto) Seg Neutrophils % Seg Neuts % (Manual) Baso # (Auto) Lymphocytes % (Manual) Monocytes % (Manual) Eosinophils % (Manual) Basophils % (Manual) Seg Neutrophils # Seg Neutrophils # Man Lymphocytes # (Manual) Monocytes # (Manual) Eosinophils # (Manual) Nucleated RBC % Basophils # (Manual) PT INR APTT Heparin Anti-Xa Level ABG pH POC ABG pO2 ABG pO2 ABG HCO3 ABG O2 Saturation ABG Base Excess POC ABG pCO2 ABG Hemoglobin ABG Oxyhemoglobin ABG Glucose Oxyhemoglobin Sodium Potassium Chloride Carbon Dioxide BUN Creatinine Glucose POC Glucose 156 H 156 H 155 H Lactic Acid Calcium Phosphorus Magnesium AST ALT Lactate Dehydrogenase CK-MB (CK-2) C-Reactive Protein NT-Pro-B Natriuret Pep Total Protein Albumin Arterial Blood Glucose Urine WBC (Auto) 12/20/19 12/20/19 12/20/19 05:26 06:02 18:17 WBC RBC Hgb Hct MCHC RDW MCV MCH Lymph % (Auto) [place] % (Auto) [place] # Eos # Lymph # (Auto) [place] # (Auto) Eos # (Auto) Seg Neutrophils % Seg Neuts % (Manual) Baso # (Auto) Lymphocytes % (Manual) Monocytes % (Manual) Eosinophils % (Manual) Basophils % (Manual) Seg Neutrophils # Seg Neutrophils # Man Lymphocytes # (Manual) Monocytes # (Manual) Eosinophils # (Manual) Nucleated RBC % Basophils # (Manual) PT INR APTT Heparin Anti-Xa Level 0.19 L ABG pH POC ABG pO2 ABG pO2 ABG HCO3 ABG O2 Saturation ABG Base Excess POC ABG pCO2 ABG Hemoglobin ABG Oxyhemoglobin ABG Glucose Oxyhemoglobin Sodium Potassium Chloride Carbon Dioxide BUN Creatinine Glucose POC Glucose 137 H 128 H Lactic Acid Calcium Phosphorus Magnesium AST ALT Lactate Dehydrogenase CK-MB (CK-2) C-Reactive Protein NT-Pro-B Natriuret Pep Total Protein Albumin Arterial Blood Glucose Urine WBC (Auto) 12/20/19 12/21/19 12/21/19 23:34 05:31 05:31 WBC 12.7 H RBC 3.09 L Hgb 8.9 L Hct 27.4 L MCHC RDW 15.8 H MCV MCH Lymph % (Auto) 12.1 L [place] % (Auto) 7.8 H [place] # Eos # Lymph # (Auto) [place] # (Auto) 1.0 H Eos # (Auto) Seg Neutrophils % 77.1 H Seg Neuts % (Manual) Baso # (Auto) Lymphocytes % (Manual) Monocytes % (Manual) Eosinophils % (Manual) Basophils % (Manual) Seg Neutrophils # 9.8 H Seg Neutrophils # Man Lymphocytes # (Manual) Monocytes # (Manual) Eosinophils # (Manual) Nucleated RBC % Basophils # (Manual) PT INR APTT Heparin Anti-Xa Level ABG pH POC ABG pO2 ABG pO2 ABG HCO3 ABG O2 Saturation ABG Base Excess POC ABG pCO2 ABG Hemoglobin ABG Oxyhemoglobin ABG Glucose Oxyhemoglobin Sodium Potassium Chloride 96.9 L Carbon Dioxide 37 H BUN 27 H Creatinine 0.7 L Glucose 140 H POC Glucose 145 H Lactic Acid Calcium Phosphorus Magnesium AST ALT Lactate Dehydrogenase CK-MB (CK-2) C-Reactive Protein NT-Pro-B Natriuret Pep Total Protein Albumin Arterial Blood Glucose Urine WBC (Auto) 12/21/19 12/21/19 12/21/19 05:38 10:13 11:51 WBC RBC Hgb Hct MCHC RDW MCV MCH Lymph % (Auto) [place] % (Auto) [place] # Eos # Lymph # (Auto) [place] # (Auto) Eos # (Auto) Seg Neutrophils % Seg Neuts % (Manual) Baso # (Auto) Lymphocytes % (Manual) Monocytes % (Manual) Eosinophils % (Manual) Basophils % (Manual) Seg Neutrophils # Seg Neutrophils # Man Lymphocytes # (Manual) Monocytes # (Manual) Eosinophils # (Manual) Nucleated RBC % Basophils # (Manual) PT INR APTT 23.9 L Heparin Anti-Xa Level < 0.10 L ABG pH POC ABG pO2 ABG pO2 ABG HCO3 ABG O2 Saturation ABG Base Excess POC ABG pCO2 ABG Hemoglobin ABG Oxyhemoglobin ABG Glucose Oxyhemoglobin Sodium Potassium Chloride Carbon Dioxide BUN Creatinine Glucose POC Glucose 151 H 145 H Lactic Acid Calcium Phosphorus Magnesium AST ALT Lactate Dehydrogenase CK-MB (CK-2) C-Reactive Protein NT-Pro-B Natriuret Pep Total Protein Albumin Arterial Blood Glucose Urine WBC (Auto) 12/21/19 12/22/19 12/22/19 17:16 00:01 01:33 WBC RBC Hgb Hct MCHC RDW MCV MCH Lymph % (Auto) [place] % (Auto) [place] # Eos # Lymph # (Auto) [place] # (Auto) Eos # (Auto) Seg Neutrophils % Seg Neuts % (Manual) Baso # (Auto) Lymphocytes % (Manual) Monocytes % (Manual) Eosinophils % (Manual) Basophils % (Manual) Seg Neutrophils # Seg Neutrophils # Man Lymphocytes # (Manual) Monocytes # (Manual) Eosinophils # (Manual) Nucleated RBC % Basophils # (Manual) PT INR APTT Heparin Anti-Xa Level 0.10 L ABG pH POC ABG pO2 ABG pO2 ABG HCO3 ABG O2 Saturation ABG Base Excess POC ABG pCO2 ABG Hemoglobin ABG Oxyhemoglobin ABG Glucose Oxyhemoglobin Sodium Potassium Chloride Carbon Dioxide BUN Creatinine Glucose POC Glucose 167 H 179 H Lactic Acid Calcium Phosphorus Magnesium AST ALT Lactate Dehydrogenase CK-MB (CK-2) C-Reactive Protein NT-Pro-B Natriuret Pep Total Protein Albumin Arterial Blood Glucose Urine WBC (Auto) 12/22/19 12/22/19 12/22/19 03:22 05:10 05:10 WBC 13.8 H RBC 3.20 L Hgb 8.9 L Hct 28.1 L MCHC RDW 15.9 H MCV MCH Lymph % (Auto) [place] % (Auto) [place] # Eos # Lymph # (Auto) [place] # (Auto) Eos # (Auto) Seg Neutrophils % Seg Neuts % (Manual) Baso # (Auto) Lymphocytes % (Manual) Monocytes % (Manual) Eosinophils % (Manual) Basophils % (Manual) Seg Neutrophils # Seg Neutrophils # Man Lymphocytes # (Manual) Monocytes # (Manual) Eosinophils # (Manual) Nucleated RBC % Basophils # (Manual) PT INR APTT Heparin Anti-Xa Level ABG pH POC ABG pO2 52.3 L ABG pO2 ABG HCO3 ABG O2 Saturation ABG Base Excess POC ABG pCO2 52.9 H ABG Hemoglobin 10.7 L ABG Oxyhemoglobin 84 L ABG Glucose Oxyhemoglobin Sodium Potassium Chloride 96.6 L Carbon Dioxide BUN 25 H Creatinine 0.7 L Glucose 129 H POC Glucose Lactic Acid Calcium Phosphorus Magnesium AST ALT Lactate Dehydrogenase CK-MB (CK-2) C-Reactive Protein NT-Pro-B Natriuret Pep Total Protein Albumin Arterial Blood Glucose Urine WBC (Auto) 12/22/19 12/22/19 12/22/19 05:18 12:32 12:43 WBC RBC Hgb Hct MCHC RDW MCV MCH Lymph % (Auto) [place] % (Auto) [place] # Eos # Lymph # (Auto) [place] # (Auto) Eos # (Auto) Seg Neutrophils % Seg Neuts % (Manual) Baso # (Auto) Lymphocytes % (Manual) Monocytes % (Manual) Eosinophils % (Manual) Basophils % (Manual) Seg Neutrophils # Seg Neutrophils # Man Lymphocytes # (Manual) Monocytes # (Manual) Eosinophils # (Manual) Nucleated RBC % Basophils # (Manual) PT INR APTT Heparin Anti-Xa Level 0.18 L ABG pH POC ABG pO2 ABG pO2 ABG HCO3 ABG O2 Saturation ABG Base Excess POC ABG pCO2 ABG Hemoglobin ABG Oxyhemoglobin ABG Glucose Oxyhemoglobin Sodium Potassium Chloride Carbon Dioxide BUN Creatinine Glucose POC Glucose 131 H 208 H Lactic Acid Calcium Phosphorus Magnesium AST ALT Lactate Dehydrogenase CK-MB (CK-2) C-Reactive Protein NT-Pro-B Natriuret Pep Total Protein Albumin Arterial Blood Glucose Urine WBC (Auto) 12/22/19 12/22/19 12/23/19 17:44 23:20 03:51 WBC 15.2 H RBC 3.43 L Hgb 9.6 L Hct 30.3 L MCHC RDW 15.9 H MCV MCH Lymph % (Auto) [place] % (Auto) [place] # Eos # Lymph # (Auto) [place] # (Auto) Eos # (Auto) Seg Neutrophils % Seg Neuts % (Manual) Baso # (Auto) Lymphocytes % (Manual) Monocytes % (Manual) Eosinophils % (Manual) Basophils % (Manual) Seg Neutrophils # Seg Neutrophils # Man Lymphocytes # (Manual) Monocytes # (Manual) Eosinophils # (Manual) Nucleated RBC % Basophils # (Manual) PT INR APTT Heparin Anti-Xa Level ABG pH POC ABG pO2 ABG pO2 ABG HCO3 ABG O2 Saturation ABG Base Excess POC ABG pCO2 ABG Hemoglobin ABG Oxyhemoglobin ABG Glucose Oxyhemoglobin Sodium Potassium Chloride Carbon Dioxide BUN Creatinine Glucose POC Glucose 209 H 119 H Lactic Acid Calcium Phosphorus Magnesium AST ALT Lactate Dehydrogenase CK-MB (CK-2) C-Reactive Protein NT-Pro-B Natriuret Pep Total Protein Albumin Arterial Blood Glucose Urine WBC (Auto) 12/23/19 12/23/19 12/23/19 03:51 05:31 12:09 WBC RBC Hgb Hct MCHC RDW MCV MCH Lymph % (Auto) [place] % (Auto) [place] # Eos # Lymph # (Auto) [place] # (Auto) Eos # (Auto) Seg Neutrophils % Seg Neuts % (Manual) Baso # (Auto) Lymphocytes % (Manual) Monocytes % (Manual) Eosinophils % (Manual) Basophils % (Manual) Seg Neutrophils # Seg Neutrophils # Man Lymphocytes # (Manual) Monocytes # (Manual) Eosinophils # (Manual) Nucleated RBC % Basophils # (Manual) PT INR APTT Heparin Anti-Xa Level ABG pH POC ABG pO2 ABG pO2 ABG HCO3 ABG O2 Saturation ABG Base Excess POC ABG pCO2 ABG Hemoglobin ABG Oxyhemoglobin ABG Glucose Oxyhemoglobin Sodium Potassium Chloride 97.2 L Carbon Dioxide 31 H BUN 23 H Creatinine 0.6 L Glucose 153 H POC Glucose 149 H 144 H Lactic Acid Calcium Phosphorus Magnesium AST ALT Lactate Dehydrogenase CK-MB (CK-2) C-Reactive Protein NT-Pro-B Natriuret Pep Total Protein Albumin Arterial Blood Glucose Urine WBC (Auto) 12/23/19 12/23/19 12/23/19 15:30 17:49 23:31 WBC RBC Hgb Hct MCHC RDW MCV MCH Lymph % (Auto) [place] % (Auto) [place] # Eos # Lymph # (Auto) [place] # (Auto) Eos # (Auto) Seg Neutrophils % Seg Neuts % (Manual) Baso # (Auto) Lymphocytes % (Manual) Monocytes % (Manual) Eosinophils % (Manual) Basophils % (Manual) Seg Neutrophils # Seg Neutrophils # Man Lymphocytes # (Manual) Monocytes # (Manual) Eosinophils # (Manual) Nucleated RBC % Basophils # (Manual) PT INR APTT Heparin Anti-Xa Level 0.21 L ABG pH POC ABG pO2 ABG pO2 ABG HCO3 ABG O2 Saturation ABG Base Excess POC ABG pCO2 ABG Hemoglobin ABG Oxyhemoglobin ABG Glucose Oxyhemoglobin Sodium Potassium Chloride Carbon Dioxide BUN Creatinine Glucose POC Glucose 192 H 151 H Lactic Acid Calcium Phosphorus Magnesium AST ALT Lactate Dehydrogenase CK-MB (CK-2) C-Reactive Protein NT-Pro-B Natriuret Pep Total Protein Albumin Arterial Blood Glucose Urine WBC (Auto) 12/24/19 12/24/19 12/24/19 05:34 12:13 16:50 WBC RBC Hgb Hct MCHC RDW MCV MCH Lymph % (Auto) [place] % (Auto) [place] # Eos # Lymph # (Auto) [place] # (Auto) Eos # (Auto) Seg Neutrophils % Seg Neuts % (Manual) Baso # (Auto) Lymphocytes % (Manual) Monocytes % (Manual) Eosinophils % (Manual) Basophils % (Manual) Seg Neutrophils # Seg Neutrophils # Man Lymphocytes # (Manual) Monocytes # (Manual) Eosinophils # (Manual) Nucleated RBC % Basophils # (Manual) PT INR APTT Heparin Anti-Xa Level 0.16 L ABG pH POC ABG pO2 ABG pO2 ABG HCO3 ABG O2 Saturation ABG Base Excess POC ABG pCO2 ABG Hemoglobin ABG Oxyhemoglobin ABG Glucose Oxyhemoglobin Sodium Potassium Chloride Carbon Dioxide BUN Creatinine Glucose POC Glucose 145 H 124 H Lactic Acid Calcium Phosphorus Magnesium AST ALT Lactate Dehydrogenase CK-MB (CK-2) C-Reactive Protein NT-Pro-B Natriuret Pep Total Protein Albumin Arterial Blood Glucose Urine WBC (Auto) 12/24/19 12/25/19 12/25/19 17:53 00:14 04:18 WBC 12.9 H RBC 3.30 L Hgb 9.1 L Hct 28.8 L MCHC RDW 16.4 H MCV MCH Lymph % (Auto) [place] % (Auto) 7.8 H [place] # Eos # Lymph # (Auto) [place] # (Auto) 1.0 H Eos # (Auto) Seg Neutrophils % 75.5 H Seg Neuts % (Manual) Baso # (Auto) Lymphocytes % (Manual) Monocytes % (Manual) Eosinophils % (Manual) Basophils % (Manual) Seg Neutrophils # 9.7 H Seg Neutrophils # Man Lymphocytes # (Manual) Monocytes # (Manual) Eosinophils # (Manual) Nucleated RBC % Basophils # (Manual) PT INR APTT Heparin Anti-Xa Level ABG pH POC ABG pO2 ABG pO2 ABG HCO3 ABG O2 Saturation ABG Base Excess POC ABG pCO2 ABG Hemoglobin ABG Oxyhemoglobin ABG Glucose Oxyhemoglobin Sodium Potassium Chloride Carbon Dioxide BUN Creatinine Glucose POC Glucose 164 H 148 H Lactic Acid Calcium Phosphorus Magnesium AST ALT Lactate Dehydrogenase CK-MB (CK-2) C-Reactive Protein NT-Pro-B Natriuret Pep Total Protein Albumin Arterial Blood Glucose Urine WBC (Auto) 12/25/19 12/25/19 12/25/19 04:18 05:38 11:44 WBC RBC Hgb Hct MCHC RDW MCV MCH Lymph % (Auto) [place] % (Auto) [place] # Eos # Lymph # (Auto) [place] # (Auto) Eos # (Auto) Seg Neutrophils % Seg Neuts % (Manual) Baso # (Auto) Lymphocytes % (Manual) Monocytes % (Manual) Eosinophils % (Manual) Basophils % (Manual) Seg Neutrophils # Seg Neutrophils # Man Lymphocytes # (Manual) Monocytes # (Manual) Eosinophils # (Manual) Nucleated RBC % Basophils # (Manual) PT INR APTT Heparin Anti-Xa Level ABG pH POC ABG pO2 ABG pO2 ABG HCO3 ABG O2 Saturation ABG Base Excess POC ABG pCO2 ABG Hemoglobin ABG Oxyhemoglobin ABG Glucose Oxyhemoglobin Sodium Potassium Chloride Carbon Dioxide 33 H BUN 27 H Creatinine 0.6 L Glucose 132 H POC Glucose 152 H 166 H Lactic Acid Calcium Phosphorus Magnesium AST ALT Lactate Dehydrogenase CK-MB (CK-2) C-Reactive Protein NT-Pro-B Natriuret Pep Total Protein Albumin Arterial Blood Glucose Urine WBC (Auto) 12/25/19 12/26/19 12/26/19 18:29 00:17 00:18 WBC RBC Hgb Hct MCHC RDW MCV MCH Lymph % (Auto) [place] % (Auto) [place] # Eos # Lymph # (Auto) [place] # (Auto) Eos # (Auto) Seg Neutrophils % Seg Neuts % (Manual) Baso # (Auto) Lymphocytes % (Manual) Monocytes % (Manual) Eosinophils % (Manual) Basophils % (Manual) Seg Neutrophils # Seg Neutrophils # Man Lymphocytes # (Manual) Monocytes # (Manual) Eosinophils # (Manual) Nucleated RBC % Basophils # (Manual) PT INR APTT Heparin Anti-Xa Level ABG pH POC ABG pO2 ABG pO2 ABG HCO3 ABG O2 Saturation ABG Base Excess POC ABG pCO2 ABG Hemoglobin ABG Oxyhemoglobin ABG Glucose Oxyhemoglobin Sodium Potassium Chloride 97.8 L Carbon Dioxide BUN 25 H Creatinine 0.6 L Glucose 140 H POC Glucose 194 H 151 H Lactic Acid Calcium Phosphorus Magnesium AST ALT Lactate Dehydrogenase CK-MB (CK-2) C-Reactive Protein NT-Pro-B Natriuret Pep Total Protein Albumin Arterial Blood Glucose Urine WBC (Auto) 12/26/19 12/26/19 12/26/19 05:36 11:41 17:50 WBC RBC Hgb Hct MCHC RDW MCV MCH Lymph % (Auto) [place] % (Auto) [place] # Eos # Lymph # (Auto) [place] # (Auto) Eos # (Auto) Seg Neutrophils % Seg Neuts % (Manual) Baso # (Auto) Lymphocytes % (Manual) Monocytes % (Manual) Eosinophils % (Manual) Basophils % (Manual) Seg Neutrophils # Seg Neutrophils # Man Lymphocytes # (Manual) Monocytes # (Manual) Eosinophils # (Manual) Nucleated RBC % Basophils # (Manual) PT INR APTT Heparin Anti-Xa Level ABG pH POC ABG pO2 ABG pO2 ABG HCO3 ABG O2 Saturation ABG Base Excess POC ABG pCO2 ABG Hemoglobin ABG Oxyhemoglobin ABG Glucose Oxyhemoglobin Sodium Potassium Chloride Carbon Dioxide BUN Creatinine Glucose POC Glucose 156 H 148 H 139 H Lactic Acid Calcium Phosphorus Magnesium AST ALT Lactate Dehydrogenase CK-MB (CK-2) C-Reactive Protein NT-Pro-B Natriuret Pep Total Protein Albumin Arterial Blood Glucose Urine WBC (Auto) 12/26/19 12/27/19 12/27/19 23:19 05:34 12:02 WBC RBC Hgb Hct MCHC RDW MCV MCH Lymph % (Auto) [place] % (Auto) [place] # Eos # Lymph # (Auto) [place] # (Auto) Eos # (Auto) Seg Neutrophils % Seg Neuts % (Manual) Baso # (Auto) Lymphocytes % (Manual) Monocytes % (Manual) Eosinophils % (Manual) Basophils % (Manual) Seg Neutrophils # Seg Neutrophils # Man Lymphocytes # (Manual) Monocytes # (Manual) Eosinophils # (Manual) Nucleated RBC % Basophils # (Manual) PT INR APTT Heparin Anti-Xa Level ABG pH POC ABG pO2 ABG pO2 ABG HCO3 ABG O2 Saturation ABG Base Excess POC ABG pCO2 ABG Hemoglobin ABG Oxyhemoglobin ABG Glucose Oxyhemoglobin Sodium Potassium Chloride Carbon Dioxide BUN Creatinine Glucose POC Glucose 161 H 145 H 157 H Lactic Acid Calcium Phosphorus Magnesium AST ALT Lactate Dehydrogenase CK-MB (CK-2) C-Reactive Protein NT-Pro-B Natriuret Pep Total Protein Albumin Arterial Blood Glucose Urine WBC (Auto) 12/27/19 12/27/19 12/27/19 17:35 20:11 23:00 WBC RBC Hgb Hct MCHC RDW MCV MCH Lymph % (Auto) [place] % (Auto) [place] # Eos # Lymph # (Auto) [place] # (Auto) Eos # (Auto) Seg Neutrophils % Seg Neuts % (Manual) Baso # (Auto) Lymphocytes % (Manual) Monocytes % (Manual) Eosinophils % (Manual) Basophils % (Manual) Seg Neutrophils # Seg Neutrophils # Man Lymphocytes # (Manual) Monocytes # (Manual) Eosinophils # (Manual) Nucleated RBC % Basophils # (Manual) PT INR APTT Heparin Anti-Xa Level 0.19 L ABG pH POC ABG pO2 ABG pO2 ABG HCO3 ABG O2 Saturation ABG Base Excess POC ABG pCO2 ABG Hemoglobin ABG Oxyhemoglobin ABG Glucose Oxyhemoglobin Sodium Potassium Chloride Carbon Dioxide BUN Creatinine Glucose POC Glucose 158 H 155 H Lactic Acid Calcium Phosphorus Magnesium AST ALT Lactate Dehydrogenase CK-MB (CK-2) C-Reactive Protein NT-Pro-B Natriuret Pep Total Protein Albumin Arterial Blood Glucose Urine WBC (Auto) 12/27/19 12/28/19 12/28/19 23:45 02:41 02:41 WBC 13.0 H RBC 3.48 L Hgb 9.5 L Hct 30.6 L MCHC 31 L RDW 16.6 H MCV MCH 27 L Lymph % (Auto) 13.0 L [place] % (Auto) 8.0 H [place] # Eos # Lymph # (Auto) [place] # (Auto) 1.0 H Eos # (Auto) Seg Neutrophils % 76.3 H Seg Neuts % (Manual) Baso # (Auto) Lymphocytes % (Manual) Monocytes % (Manual) Eosinophils % (Manual) Basophils % (Manual) Seg Neutrophils # 9.9 H Seg Neutrophils # Man Lymphocytes # (Manual) Monocytes # (Manual) Eosinophils # (Manual) Nucleated RBC % Basophils # (Manual) PT INR APTT Heparin Anti-Xa Level ABG pH POC ABG pO2 ABG pO2 ABG HCO3 ABG O2 Saturation ABG Base Excess POC ABG pCO2 ABG Hemoglobin ABG Oxyhemoglobin ABG Glucose Oxyhemoglobin Sodium Potassium Chloride Carbon Dioxide BUN 22 H Creatinine 0.6 L Glucose 101 H POC Glucose 130 H Lactic Acid Calcium Phosphorus Magnesium AST ALT Lactate Dehydrogenase CK-MB (CK-2) C-Reactive Protein NT-Pro-B Natriuret Pep Total Protein Albumin Arterial Blood Glucose Urine WBC (Auto) 12/28/19 12/28/19 12/28/19 06:00 12:34 18:13 WBC RBC Hgb Hct MCHC RDW MCV MCH Lymph % (Auto) [place] % (Auto) [place] # Eos # Lymph # (Auto) [place] # (Auto) Eos # (Auto) Seg Neutrophils % Seg Neuts % (Manual) Baso # (Auto) Lymphocytes % (Manual) Monocytes % (Manual) Eosinophils % (Manual) Basophils % (Manual) Seg Neutrophils # Seg Neutrophils # Man Lymphocytes # (Manual) Monocytes # (Manual) Eosinophils # (Manual) Nucleated RBC % Basophils # (Manual) PT INR APTT Heparin Anti-Xa Level ABG pH POC ABG pO2 ABG pO2 ABG HCO3 ABG O2 Saturation ABG Base Excess POC ABG pCO2 ABG Hemoglobin ABG Oxyhemoglobin ABG Glucose Oxyhemoglobin Sodium Potassium Chloride Carbon Dioxide BUN Creatinine Glucose POC Glucose 150 H 161 H 128 H Lactic Acid Calcium Phosphorus Magnesium AST ALT Lactate Dehydrogenase CK-MB (CK-2) C-Reactive Protein NT-Pro-B Natriuret Pep Total Protein Albumin Arterial Blood Glucose Urine WBC (Auto) 12/28/19 12/29/19 12/29/19 23:36 05:21 11:40 WBC RBC Hgb Hct MCHC RDW MCV MCH Lymph % (Auto) [place] % (Auto) [place] # Eos # Lymph # (Auto) [place] # (Auto) Eos # (Auto) Seg Neutrophils % Seg Neuts % (Manual) Baso # (Auto) Lymphocytes % (Manual) Monocytes % (Manual) Eosinophils % (Manual) Basophils % (Manual) Seg Neutrophils # Seg Neutrophils # Man Lymphocytes # (Manual) Monocytes # (Manual) Eosinophils # (Manual) Nucleated RBC % Basophils # (Manual) PT INR APTT Heparin Anti-Xa Level ABG pH POC ABG pO2 ABG pO2 ABG HCO3 ABG O2 Saturation ABG Base Excess POC ABG pCO2 ABG Hemoglobin ABG Oxyhemoglobin ABG Glucose Oxyhemoglobin Sodium Potassium Chloride Carbon Dioxide BUN Creatinine Glucose POC Glucose 137 H 136 H 166 H Lactic Acid Calcium Phosphorus Magnesium AST ALT Lactate Dehydrogenase CK-MB (CK-2) C-Reactive Protein NT-Pro-B Natriuret Pep Total Protein Albumin Arterial Blood Glucose Urine WBC (Auto) 12/29/19 12/29/19 12/29/19 17:23 19:21 23:38 WBC RBC Hgb Hct MCHC RDW MCV MCH Lymph % (Auto) [place] % (Auto) [place] # Eos # Lymph # (Auto) [place] # (Auto) Eos # (Auto) Seg Neutrophils % Seg Neuts % (Manual) Baso # (Auto) Lymphocytes % (Manual) Monocytes % (Manual) Eosinophils % (Manual) Basophils % (Manual) Seg Neutrophils # Seg Neutrophils # Man Lymphocytes # (Manual) Monocytes # (Manual) Eosinophils # (Manual) Nucleated RBC % Basophils # (Manual) PT INR APTT Heparin Anti-Xa Level 0.20 L ABG pH POC ABG pO2 ABG pO2 ABG HCO3 ABG O2 Saturation ABG Base Excess POC ABG pCO2 ABG Hemoglobin ABG Oxyhemoglobin ABG Glucose Oxyhemoglobin Sodium Potassium Chloride Carbon Dioxide BUN Creatinine Glucose POC Glucose 144 H 141 H Lactic Acid Calcium Phosphorus Magnesium AST ALT Lactate Dehydrogenase CK-MB (CK-2) C-Reactive Protein NT-Pro-B Natriuret Pep Total Protein Albumin Arterial Blood Glucose Urine WBC (Auto) 12/30/19 12/30/19 12/30/19 03:58 03:58 04:59 WBC RBC 3.54 L Hgb 9.8 L Hct 30.7 L MCHC RDW 16.8 H MCV MCH Lymph % (Auto) [place] % (Auto) [place] # Eos # Lymph # (Auto) [place] # (Auto) Eos # (Auto) Seg Neutrophils % Seg Neuts % (Manual) Baso # (Auto) Lymphocytes % (Manual) Monocytes % (Manual) Eosinophils % (Manual) Basophils % (Manual) Seg Neutrophils # Seg Neutrophils # Man Lymphocytes # (Manual) Monocytes # (Manual) Eosinophils # (Manual) Nucleated RBC % Basophils # (Manual) PT INR APTT Heparin Anti-Xa Level ABG pH POC ABG pO2 ABG pO2 ABG HCO3 29.8 H ABG O2 Saturation ABG Base Excess 4.8 H POC ABG pCO2 ABG Hemoglobin 11.2 L ABG Oxyhemoglobin ABG Glucose Oxyhemoglobin 93.8 L Sodium Potassium Chloride 97.8 L Carbon Dioxide BUN 26 H Creatinine Glucose 168 H POC Glucose Lactic Acid Calcium Phosphorus Magnesium AST ALT Lactate Dehydrogenase CK-MB (CK-2) C-Reactive Protein NT-Pro-B Natriuret Pep Total Protein Albumin Arterial Blood Glucose Urine WBC (Auto) 12/30/19 12/30/19 12/30/19 05:45 11:34 17:28 WBC RBC Hgb Hct MCHC RDW MCV MCH Lymph % (Auto) [place] % (Auto) [place] # Eos # Lymph # (Auto) [place] # (Auto) Eos # (Auto) Seg Neutrophils % Seg Neuts % (Manual) Baso # (Auto) Lymphocytes % (Manual) Monocytes % (Manual) Eosinophils % (Manual) Basophils % (Manual) Seg Neutrophils # Seg Neutrophils # Man Lymphocytes # (Manual) Monocytes # (Manual) Eosinophils # (Manual) Nucleated RBC % Basophils # (Manual) PT INR APTT Heparin Anti-Xa Level ABG pH POC ABG pO2 ABG pO2 ABG HCO3 ABG O2 Saturation ABG Base Excess POC ABG pCO2 ABG Hemoglobin ABG Oxyhemoglobin ABG Glucose Oxyhemoglobin Sodium Potassium Chloride Carbon Dioxide BUN Creatinine Glucose POC Glucose 163 H 180 H 150 H Lactic Acid Calcium Phosphorus Magnesium AST ALT Lactate Dehydrogenase CK-MB (CK-2) C-Reactive Protein NT-Pro-B Natriuret Pep Total Protein Albumin Arterial Blood Glucose Urine WBC (Auto) 12/30/19 12/31/19 12/31/19 23:43 04:55 05:07 WBC RBC Hgb Hct MCHC RDW MCV MCH Lymph % (Auto) [place] % (Auto) [place] # Eos # Lymph # (Auto) [place] # (Auto) Eos # (Auto) Seg Neutrophils % Seg Neuts % (Manual) Baso # (Auto) Lymphocytes % (Manual) Monocytes % (Manual) Eosinophils % (Manual) Basophils % (Manual) Seg Neutrophils # Seg Neutrophils # Man Lymphocytes # (Manual) Monocytes # (Manual) Eosinophils # (Manual) Nucleated RBC % Basophils # (Manual) PT INR APTT Heparin Anti-Xa Level ABG pH POC ABG pO2 ABG pO2 ABG HCO3 ABG O2 Saturation ABG Base Excess POC ABG pCO2 ABG Hemoglobin ABG Oxyhemoglobin ABG Glucose Oxyhemoglobin Sodium Potassium 5.6 H D Chloride Carbon Dioxide BUN 33 H Creatinine Glucose 131 H POC Glucose 142 H 134 H Lactic Acid Calcium Phosphorus Magnesium AST ALT Lactate Dehydrogenase CK-MB (CK-2) C-Reactive Protein NT-Pro-B Natriuret Pep Total Protein Albumin Arterial Blood Glucose Urine WBC (Auto) 12/31/19 12/31/19 12/31/19 11:30 17:19 17:36 WBC RBC Hgb Hct MCHC RDW MCV MCH Lymph % (Auto) [place] % (Auto) [place] # Eos # Lymph # (Auto) [place] # (Auto) Eos # (Auto) Seg Neutrophils % Seg Neuts % (Manual) Baso # (Auto) Lymphocytes % (Manual) Monocytes % (Manual) Eosinophils % (Manual) Basophils % (Manual) Seg Neutrophils # Seg Neutrophils # Man Lymphocytes # (Manual) Monocytes # (Manual) Eosinophils # (Manual) Nucleated RBC % Basophils # (Manual) PT INR APTT Heparin Anti-Xa Level ABG pH POC ABG pO2 ABG pO2 ABG HCO3 ABG O2 Saturation ABG Base Excess POC ABG pCO2 ABG Hemoglobin ABG Oxyhemoglobin ABG Glucose Oxyhemoglobin Sodium Potassium Chloride Carbon Dioxide BUN 35 H Creatinine Glucose 156 H POC Glucose 158 H 181 H Lactic Acid Calcium Phosphorus Magnesium AST ALT Lactate Dehydrogenase CK-MB (CK-2) C-Reactive Protein NT-Pro-B Natriuret Pep Total Protein Albumin Arterial Blood Glucose Urine WBC (Auto) 12/31/19 12/31/19 12/31/19 18:16 19:41 21:53 WBC RBC Hgb Hct MCHC RDW MCV MCH Lymph % (Auto) [place] % (Auto) [place] # Eos # Lymph # (Auto) [place] # (Auto) Eos # (Auto) Seg Neutrophils % Seg Neuts % (Manual) Baso # (Auto) Lymphocytes % (Manual) Monocytes % (Manual) Eosinophils % (Manual) Basophils % (Manual) Seg Neutrophils # Seg Neutrophils # Man Lymphocytes # (Manual) Monocytes # (Manual) Eosinophils # (Manual) Nucleated RBC % Basophils # (Manual) PT INR APTT Heparin Anti-Xa Level 0.20 L ABG pH POC ABG pO2 ABG pO2 ABG HCO3 ABG O2 Saturation ABG Base Excess POC ABG pCO2 ABG Hemoglobin ABG Oxyhemoglobin ABG Glucose Oxyhemoglobin Sodium Potassium Chloride Carbon Dioxide BUN 34 H Creatinine Glucose 169 H POC Glucose 141 H Lactic Acid Calcium Phosphorus Magnesium AST ALT Lactate Dehydrogenase CK-MB (CK-2) C-Reactive Protein NT-Pro-B Natriuret Pep Total Protein Albumin Arterial Blood Glucose Urine WBC (Auto) 12/31/19 01/01/20 01/01/20 23:51 05:17 10:40 WBC RBC Hgb Hct MCHC RDW MCV MCH Lymph % (Auto) [place] % (Auto) [place] # Eos # Lymph # (Auto) [place] # (Auto) Eos # (Auto) Seg Neutrophils % Seg Neuts % (Manual) Baso # (Auto) Lymphocytes % (Manual) Monocytes % (Manual) Eosinophils % (Manual) Basophils % (Manual) Seg Neutrophils # Seg Neutrophils # Man Lymphocytes # (Manual) Monocytes # (Manual) Eosinophils # (Manual) Nucleated RBC % Basophils # (Manual) PT INR APTT Heparin Anti-Xa Level ABG pH POC ABG pO2 ABG pO2 ABG HCO3 ABG O2 Saturation ABG Base Excess POC ABG pCO2 ABG Hemoglobin ABG Oxyhemoglobin ABG Glucose Oxyhemoglobin Sodium Potassium Chloride Carbon Dioxide BUN 31 H Creatinine 0.7 L Glucose 137 H POC Glucose 131 H 155 H Lactic Acid Calcium Phosphorus Magnesium AST 73 H ALT 97 H Lactate Dehydrogenase CK-MB (CK-2) C-Reactive Protein NT-Pro-B Natriuret Pep 3866 H Total Protein Albumin 2.8 L Arterial Blood Glucose Urine WBC (Auto) 01/01/20 01/01/20 01/01/20 12:26 15:33 17:53 WBC 14.3 H RBC 3.35 L Hgb 9.1 L Hct 28.8 L MCHC RDW 17.0 H MCV MCH 27 L Lymph % (Auto) 7.0 L [place] % (Auto) 7.6 H [place] # Eos # Lymph # (Auto) 1.0 L [place] # (Auto) 1.1 H Eos # (Auto) Seg Neutrophils % 83.3 H Seg Neuts % (Manual) Baso # (Auto) Lymphocytes % (Manual) Monocytes % (Manual) Eosinophils % (Manual) Basophils % (Manual) Seg Neutrophils # 12.0 H Seg Neutrophils # Man Lymphocytes # (Manual) Monocytes # (Manual) Eosinophils # (Manual) Nucleated RBC % Basophils # (Manual) PT INR APTT Heparin Anti-Xa Level ABG pH POC ABG pO2 ABG pO2 ABG HCO3 ABG O2 Saturation ABG Base Excess POC ABG pCO2 ABG Hemoglobin ABG Oxyhemoglobin ABG Glucose Oxyhemoglobin Sodium Potassium Chloride Carbon Dioxide BUN Creatinine Glucose POC Glucose 128 H 128 H Lactic Acid Calcium Phosphorus Magnesium AST ALT Lactate Dehydrogenase CK-MB (CK-2) C-Reactive Protein NT-Pro-B Natriuret Pep Total Protein Albumin Arterial Blood Glucose Urine WBC (Auto) 01/01/20 01/02/20 01/02/20 23:04 05:39 07:00 WBC RBC Hgb Hct MCHC RDW MCV MCH Lymph % (Auto) [place] % (Auto) [place] # Eos # Lymph # (Auto) [place] # (Auto) Eos # (Auto) Seg Neutrophils % Seg Neuts % (Manual) Baso # (Auto) Lymphocytes % (Manual) Monocytes % (Manual) Eosinophils % (Manual) Basophils % (Manual) Seg Neutrophils # Seg Neutrophils # Man Lymphocytes # (Manual) Monocytes # (Manual) Eosinophils # (Manual) Nucleated RBC % Basophils # (Manual) PT INR APTT Heparin Anti-Xa Level 0.13 L ABG pH POC ABG pO2 ABG pO2 ABG HCO3 ABG O2 Saturation ABG Base Excess POC ABG pCO2 ABG Hemoglobin ABG Oxyhemoglobin ABG Glucose Oxyhemoglobin Sodium Potassium Chloride Carbon Dioxide BUN Creatinine Glucose POC Glucose 120 H 169 H Lactic Acid Calcium Phosphorus Magnesium AST ALT Lactate Dehydrogenase CK-MB (CK-2) C-Reactive Protein NT-Pro-B Natriuret Pep Total Protein Albumin Arterial Blood Glucose Urine WBC (Auto) 01/02/20 01/02/20 01/02/20 12:15 14:06 17:58 WBC RBC Hgb Hct MCHC RDW MCV MCH Lymph % (Auto) [place] % (Auto) [place] # Eos # Lymph # (Auto) [place] # (Auto) Eos # (Auto) Seg Neutrophils % Seg Neuts % (Manual) Baso # (Auto) Lymphocytes % (Manual) Monocytes % (Manual) Eosinophils % (Manual) Basophils % (Manual) Seg Neutrophils # Seg Neutrophils # Man Lymphocytes # (Manual) Monocytes # (Manual) Eosinophils # (Manual) Nucleated RBC % Basophils # (Manual) PT INR APTT Heparin Anti-Xa Level < 0.10 L ABG pH POC ABG pO2 ABG pO2 ABG HCO3 ABG O2 Saturation ABG Base Excess POC ABG pCO2 ABG Hemoglobin ABG Oxyhemoglobin ABG Glucose Oxyhemoglobin Sodium Potassium Chloride Carbon Dioxide BUN Creatinine Glucose POC Glucose 190 H 198 H Lactic Acid Calcium Phosphorus Magnesium AST ALT Lactate Dehydrogenase CK-MB (CK-2) C-Reactive Protein NT-Pro-B Natriuret Pep Total Protein Albumin Arterial Blood Glucose Urine WBC (Auto) 01/02/20 01/02/20 01/03/20 21:43 23:33 05:42 WBC RBC Hgb Hct MCHC RDW MCV MCH Lymph % (Auto) [place] % (Auto) [place] # Eos # Lymph # (Auto) [place] # (Auto) Eos # (Auto) Seg Neutrophils % Seg Neuts % (Manual) Baso # (Auto) Lymphocytes % (Manual) Monocytes % (Manual) Eosinophils % (Manual) Basophils % (Manual) Seg Neutrophils # Seg Neutrophils # Man Lymphocytes # (Manual) Monocytes # (Manual) Eosinophils # (Manual) Nucleated RBC % Basophils # (Manual) PT INR APTT Heparin Anti-Xa Level 0.10 L ABG pH POC ABG pO2 ABG pO2 ABG HCO3 ABG O2 Saturation ABG Base Excess POC ABG pCO2 ABG Hemoglobin ABG Oxyhemoglobin ABG Glucose Oxyhemoglobin Sodium Potassium Chloride Carbon Dioxide BUN Creatinine Glucose POC Glucose 180 H 163 H Lactic Acid Calcium Phosphorus Magnesium AST ALT Lactate Dehydrogenase CK-MB (CK-2) C-Reactive Protein NT-Pro-B Natriuret Pep Total Protein Albumin Arterial Blood Glucose Urine WBC (Auto) 01/03/20 01/03/20 01/03/20 06:50 07:25 07:45 WBC 12.1 H RBC 3.35 L Hgb 9.0 L Hct 28.9 L MCHC 31 L RDW 16.6 H MCV MCH 27 L Lymph % (Auto) 13.0 L [place] % (Auto) 8.6 H [place] # Eos # Lymph # (Auto) [place] # (Auto) 1.0 H Eos # (Auto) Seg Neutrophils % 75.9 H Seg Neuts % (Manual) Baso # (Auto) Lymphocytes % (Manual) Monocytes % (Manual) Eosinophils % (Manual) Basophils % (Manual) Seg Neutrophils # 9.2 H Seg Neutrophils # Man Lymphocytes # (Manual) Monocytes # (Manual) Eosinophils # (Manual) Nucleated RBC % Basophils # (Manual) PT INR APTT Heparin Anti-Xa Level 0.29 L ABG pH POC ABG pO2 ABG pO2 ABG HCO3 ABG O2 Saturation ABG Base Excess POC ABG pCO2 ABG Hemoglobin ABG Oxyhemoglobin ABG Glucose Oxyhemoglobin Sodium Potassium 3.3 L D Chloride Carbon Dioxide 35 H D BUN 23 H Creatinine 0.6 L Glucose 149 H POC Glucose Lactic Acid Calcium Phosphorus Magnesium AST ALT 88 H Lactate Dehydrogenase CK-MB (CK-2) C-Reactive Protein NT-Pro-B Natriuret Pep Total Protein 6.2 L Albumin 2.9 L Arterial Blood Glucose Urine WBC (Auto) 01/03/20 01/03/20 01/03/20 12:05 17:42 18:30 WBC RBC Hgb Hct MCHC RDW MCV MCH Lymph % (Auto) [place] % (Auto) [place] # Eos # Lymph # (Auto) [place] # (Auto) Eos # (Auto) Seg Neutrophils % Seg Neuts % (Manual) Baso # (Auto) Lymphocytes % (Manual) Monocytes % (Manual) Eosinophils % (Manual) Basophils % (Manual) Seg Neutrophils # Seg Neutrophils # Man Lymphocytes # (Manual) Monocytes # (Manual) Eosinophils # (Manual) Nucleated RBC % Basophils # (Manual) PT INR APTT Heparin Anti-Xa Level ABG pH POC ABG pO2 ABG pO2 70.7 L ABG HCO3 36.1 H ABG O2 Saturation 94.4 L ABG Base Excess 10.0 H POC ABG pCO2 ABG Hemoglobin 9.7 L ABG Oxyhemoglobin ABG Glucose Oxyhemoglobin 91.8 L Sodium Potassium Chloride Carbon Dioxide BUN Creatinine Glucose POC Glucose 128 H 132 H Lactic Acid Calcium Phosphorus Magnesium AST ALT Lactate Dehydrogenase CK-MB (CK-2) C-Reactive Protein NT-Pro-B Natriuret Pep Total Protein Albumin Arterial Blood Glucose Urine WBC (Auto) 01/04/20 01/04/20 01/04/20 00:10 04:26 05:23 WBC RBC Hgb Hct MCHC RDW MCV MCH Lymph % (Auto) [place] % (Auto) [place] # Eos # Lymph # (Auto) [place] # (Auto) Eos # (Auto) Seg Neutrophils % Seg Neuts % (Manual) Baso # (Auto) Lymphocytes % (Manual) Monocytes % (Manual) Eosinophils % (Manual) Basophils % (Manual) Seg Neutrophils # Seg Neutrophils # Man Lymphocytes # (Manual) Monocytes # (Manual) Eosinophils # (Manual) Nucleated RBC % Basophils # (Manual) PT INR APTT Heparin Anti-Xa Level 0.16 L ABG pH POC ABG pO2 ABG pO2 ABG HCO3 ABG O2 Saturation ABG Base Excess POC ABG pCO2 ABG Hemoglobin ABG Oxyhemoglobin ABG Glucose Oxyhemoglobin Sodium Potassium Chloride Carbon Dioxide BUN Creatinine Glucose POC Glucose 121 H 119 H Lactic Acid Calcium Phosphorus Magnesium AST ALT Lactate Dehydrogenase CK-MB (CK-2) C-Reactive Protein NT-Pro-B Natriuret Pep Total Protein Albumin Arterial Blood Glucose Urine WBC (Auto) 01/04/20 01/04/20 01/04/20 09:50 09:50 12:18 WBC 15.4 H RBC 3.30 L Hgb 8.7 L Hct 28.2 L MCHC 31 L RDW 17.0 H MCV MCH 26 L Lymph % (Auto) [place] % (Auto) 7.6 H [place] # Eos # Lymph # (Auto) [place] # (Auto) 1.2 H Eos # (Auto) Seg Neutrophils % 75.4 H Seg Neuts % (Manual) Baso # (Auto) Lymphocytes % (Manual) Monocytes % (Manual) Eosinophils % (Manual) Basophils % (Manual) Seg Neutrophils # 11.6 H Seg Neutrophils # Man Lymphocytes # (Manual) Monocytes # (Manual) Eosinophils # (Manual) Nucleated RBC % Basophils # (Manual) PT INR APTT Heparin Anti-Xa Level ABG pH POC ABG pO2 ABG pO2 ABG HCO3 ABG O2 Saturation ABG Base Excess POC ABG pCO2 ABG Hemoglobin ABG Oxyhemoglobin ABG Glucose Oxyhemoglobin Sodium 148 H Potassium 3.5 L Chloride Carbon Dioxide 32 H BUN Creatinine 0.6 L Glucose 114 H POC Glucose 111 H Lactic Acid Calcium Phosphorus Magnesium AST ALT 59 H Lactate Dehydrogenase CK-MB (CK-2) C-Reactive Protein NT-Pro-B Natriuret Pep Total Protein Albumin 2.6 L Arterial Blood Glucose Urine WBC (Auto) 01/05/20 01/05/20 01/05/20 04:05 04:05 05:19 WBC 11.7 H RBC 3.50 L Hgb 9.3 L Hct 29.9 L MCHC 31 L RDW 16.6 H MCV MCH 27 L Lymph % (Auto) 13.1 L [place] % (Auto) 9.7 H [place] # Eos # Lymph # (Auto) [place] # (Auto) 1.1 H Eos # (Auto) Seg Neutrophils % 74.0 H Seg Neuts % (Manual) Baso # (Auto) Lymphocytes % (Manual) Monocytes % (Manual) Eosinophils % (Manual) Basophils % (Manual) Seg Neutrophils # 8.6 H Seg Neutrophils # Man Lymphocytes # (Manual) Monocytes # (Manual) Eosinophils # (Manual) Nucleated RBC % Basophils # (Manual) PT INR APTT Heparin Anti-Xa Level ABG pH POC ABG pO2 ABG pO2 ABG HCO3 ABG O2 Saturation ABG Base Excess POC ABG pCO2 ABG Hemoglobin ABG Oxyhemoglobin ABG Glucose Oxyhemoglobin Sodium 151 H Potassium Chloride Carbon Dioxide 34 H BUN Creatinine 0.7 L Glucose POC Glucose 112 H Lactic Acid Calcium Phosphorus Magnesium AST ALT 59 H Lactate Dehydrogenase CK-MB (CK-2) C-Reactive Protein NT-Pro-B Natriuret Pep Total Protein 5.8 L Albumin 2.6 L Arterial Blood Glucose Urine WBC (Auto) 01/05/20 01/06/20 01/06/20 16:04 00:23 04:44 WBC RBC 3.36 L Hgb 8.9 L Hct 28.7 L MCHC 31 L RDW 16.9 H MCV MCH 26 L Lymph % (Auto) [place] % (Auto) 9.4 H [place] # Eos # Lymph # (Auto) [place] # (Auto) Eos # (Auto) Seg Neutrophils % Seg Neuts % (Manual) Baso # (Auto) Lymphocytes % (Manual) Monocytes % (Manual) Eosinophils % (Manual) Basophils % (Manual) Seg Neutrophils # Seg Neutrophils # Man Lymphocytes # (Manual) Monocytes # (Manual) Eosinophils # (Manual) Nucleated RBC % Basophils # (Manual) PT INR APTT Heparin Anti-Xa Level ABG pH POC ABG pO2 ABG pO2 ABG HCO3 ABG O2 Saturation ABG Base Excess POC ABG pCO2 ABG Hemoglobin ABG Oxyhemoglobin ABG Glucose Oxyhemoglobin Sodium 151 H Potassium 3.2 L Chloride Carbon Dioxide 34 H BUN Creatinine 0.6 L Glucose POC Glucose 107 H Lactic Acid Calcium Phosphorus Magnesium AST ALT Lactate Dehydrogenase CK-MB (CK-2) C-Reactive Protein NT-Pro-B Natriuret Pep Total Protein Albumin Arterial Blood Glucose Urine WBC (Auto) 01/06/20 01/06/20 01/06/20 04:44 05:33 12:04 WBC RBC Hgb Hct MCHC RDW MCV MCH Lymph % (Auto) [place] % (Auto) [place] # Eos # Lymph # (Auto) [place] # (Auto) Eos # (Auto) Seg Neutrophils % Seg Neuts % (Manual) Baso # (Auto) Lymphocytes % (Manual) Monocytes % (Manual) Eosinophils % (Manual) Basophils % (Manual) Seg Neutrophils # Seg Neutrophils # Man Lymphocytes # (Manual) Monocytes # (Manual) Eosinophils # (Manual) Nucleated RBC % Basophils # (Manual) PT INR APTT Heparin Anti-Xa Level ABG pH POC ABG pO2 ABG pO2 ABG HCO3 ABG O2 Saturation ABG Base Excess POC ABG pCO2 ABG Hemoglobin ABG Oxyhemoglobin ABG Glucose Oxyhemoglobin Sodium 151 H Potassium 3.4 L Chloride Carbon Dioxide 33 H BUN Creatinine 0.6 L Glucose 118 H POC Glucose 118 H 123 H Lactic Acid Calcium Phosphorus Magnesium AST ALT Lactate Dehydrogenase CK-MB (CK-2) C-Reactive Protein NT-Pro-B Natriuret Pep Total Protein 6.2 L Albumin 2.6 L Arterial Blood Glucose Urine WBC (Auto) 01/06/20 01/07/20 01/07/20 17:54 00:06 04:10 WBC RBC 3.42 L Hgb 8.9 L Hct 29.0 L MCHC 31 L RDW 17.1 H MCV MCH 26 L Lymph % (Auto) [place] % (Auto) 8.4 H [place] # Eos # Lymph # (Auto) [place] # (Auto) Eos # (Auto) Seg Neutrophils % Seg Neuts % (Manual) Baso # (Auto) Lymphocytes % (Manual) Monocytes % (Manual) Eosinophils % (Manual) Basophils % (Manual) Seg Neutrophils # Seg Neutrophils # Man Lymphocytes # (Manual) Monocytes # (Manual) Eosinophils # (Manual) Nucleated RBC % Basophils # (Manual) PT INR APTT Heparin Anti-Xa Level ABG pH POC ABG pO2 ABG pO2 ABG HCO3 ABG O2 Saturation ABG Base Excess POC ABG pCO2 ABG Hemoglobin ABG Oxyhemoglobin ABG Glucose Oxyhemoglobin Sodium Potassium Chloride Carbon Dioxide BUN Creatinine Glucose POC Glucose 112 H 126 H Lactic Acid Calcium Phosphorus Magnesium AST ALT Lactate Dehydrogenase CK-MB (CK-2) C-Reactive Protein NT-Pro-B Natriuret Pep Total Protein Albumin Arterial Blood Glucose Urine WBC (Auto) 01/07/20 01/07/20 01/07/20 04:10 05:59 12:27 WBC RBC Hgb Hct MCHC RDW MCV MCH Lymph % (Auto) [place] % (Auto) [place] # Eos # Lymph # (Auto) [place] # (Auto) Eos # (Auto) Seg Neutrophils % Seg Neuts % (Manual) Baso # (Auto) Lymphocytes % (Manual) Monocytes % (Manual) Eosinophils % (Manual) Basophils % (Manual) Seg Neutrophils # Seg Neutrophils # Man Lymphocytes # (Manual) Monocytes # (Manual) Eosinophils # (Manual) Nucleated RBC % Basophils # (Manual) PT INR APTT Heparin Anti-Xa Level ABG pH POC ABG pO2 ABG pO2 ABG HCO3 ABG O2 Saturation ABG Base Excess POC ABG pCO2 ABG Hemoglobin ABG Oxyhemoglobin ABG Glucose Oxyhemoglobin Sodium 153 H Potassium 3.5 L Chloride Carbon Dioxide 34 H BUN Creatinine 0.6 L Glucose 121 H POC Glucose 121 H 126 H Lactic Acid Calcium Phosphorus Magnesium AST ALT Lactate Dehydrogenase CK-MB (CK-2) C-Reactive Protein NT-Pro-B Natriuret Pep Total Protein 5.9 L Albumin 2.4 L Arterial Blood Glucose Urine WBC (Auto) 01/07/20 01/08/20 01/08/20 18:12 00:03 05:41 WBC RBC Hgb Hct MCHC RDW MCV MCH Lymph % (Auto) [place] % (Auto) [place] # Eos # Lymph # (Auto) [place] # (Auto) Eos # (Auto) Seg Neutrophils % Seg Neuts % (Manual) Baso # (Auto) Lymphocytes % (Manual) Monocytes % (Manual) Eosinophils % (Manual) Basophils % (Manual) Seg Neutrophils # Seg Neutrophils # Man Lymphocytes # (Manual) Monocytes # (Manual) Eosinophils # (Manual) Nucleated RBC % Basophils # (Manual) PT INR APTT Heparin Anti-Xa Level ABG pH POC ABG pO2 ABG pO2 ABG HCO3 ABG O2 Saturation ABG Base Excess POC ABG pCO2 ABG Hemoglobin ABG Oxyhemoglobin ABG Glucose Oxyhemoglobin Sodium Potassium Chloride Carbon Dioxide BUN Creatinine Glucose POC Glucose 124 H 130 H 138 H Lactic Acid Calcium Phosphorus Magnesium AST ALT Lactate Dehydrogenase CK-MB (CK-2) C-Reactive Protein NT-Pro-B Natriuret Pep Total Protein Albumin Arterial Blood Glucose Urine WBC (Auto) 01/08/20 01/08/20 01/08/20 09:28 11:42 18:21 WBC RBC Hgb Hct MCHC RDW MCV MCH Lymph % (Auto) [place] % (Auto) [place] # Eos # Lymph # (Auto) [place] # (Auto) Eos # (Auto) Seg Neutrophils % Seg Neuts % (Manual) Baso # (Auto) Lymphocytes % (Manual) Monocytes % (Manual) Eosinophils % (Manual) Basophils % (Manual) Seg Neutrophils # Seg Neutrophils # Man Lymphocytes # (Manual) Monocytes # (Manual) Eosinophils # (Manual) Nucleated RBC % Basophils # (Manual) PT INR APTT Heparin Anti-Xa Level ABG pH POC ABG pO2 ABG pO2 ABG HCO3 ABG O2 Saturation ABG Base Excess POC ABG pCO2 ABG Hemoglobin ABG Oxyhemoglobin ABG Glucose Oxyhemoglobin Sodium Potassium Chloride Carbon Dioxide BUN Creatinine Glucose POC Glucose 181 H 150 H 129 H Lactic Acid Calcium Phosphorus Magnesium AST ALT Lactate Dehydrogenase CK-MB (CK-2) C-Reactive Protein NT-Pro-B Natriuret Pep Total Protein Albumin Arterial Blood Glucose Urine WBC (Auto) 01/08/20 01/08/20 01/09/20 19:25 23:55 04:11 WBC RBC 3.43 L Hgb 8.9 L Hct 28.7 L MCHC 31 L RDW 17.6 H MCV MCH 26 L Lymph % (Auto) [place] % (Auto) 8.6 H [place] # Eos # Lymph # (Auto) [place] # (Auto) Eos # (Auto) Seg Neutrophils % Seg Neuts % (Manual) Baso # (Auto) Lymphocytes % (Manual) Monocytes % (Manual) Eosinophils % (Manual) Basophils % (Manual) Seg Neutrophils # Seg Neutrophils # Man Lymphocytes # (Manual) Monocytes # (Manual) Eosinophils # (Manual) Nucleated RBC % Basophils # (Manual) PT INR APTT Heparin Anti-Xa Level ABG pH POC ABG pO2 ABG pO2 ABG HCO3 ABG O2 Saturation ABG Base Excess POC ABG pCO2 ABG Hemoglobin ABG Oxyhemoglobin ABG Glucose Oxyhemoglobin Sodium Potassium Chloride Carbon Dioxide BUN Creatinine 0.7 L Glucose 117 H POC Glucose 132 H Lactic Acid Calcium Phosphorus Magnesium AST ALT Lactate Dehydrogenase CK-MB (CK-2) C-Reactive Protein NT-Pro-B Natriuret Pep Total Protein Albumin Arterial Blood Glucose Urine WBC (Auto) 01/09/20 01/09/20 01/09/20 04:11 05:38 22:58 WBC RBC Hgb Hct MCHC RDW MCV MCH Lymph % (Auto) [place] % (Auto) [place] # Eos # Lymph # (Auto) [place] # (Auto) Eos # (Auto) Seg Neutrophils % Seg Neuts % (Manual) Baso # (Auto) Lymphocytes % (Manual) Monocytes % (Manual) Eosinophils % (Manual) Basophils % (Manual) Seg Neutrophils # Seg Neutrophils # Man Lymphocytes # (Manual) Monocytes # (Manual) Eosinophils # (Manual) Nucleated RBC % Basophils # (Manual) PT INR APTT Heparin Anti-Xa Level ABG pH POC ABG pO2 ABG pO2 ABG HCO3 ABG O2 Saturation ABG Base Excess POC ABG pCO2 ABG Hemoglobin ABG Oxyhemoglobin ABG Glucose Oxyhemoglobin Sodium 147 H Potassium 3.3 L D Chloride Carbon Dioxide 32 H BUN Creatinine 0.6 L Glucose 106 H POC Glucose 107 H 113 H Lactic Acid Calcium Phosphorus Magnesium AST ALT Lactate Dehydrogenase CK-MB (CK-2) C-Reactive Protein NT-Pro-B Natriuret Pep Total Protein Albumin Arterial Blood Glucose Urine WBC (Auto) 01/10/20 01/10/20 01/10/20 04:05 11:36 17:54 WBC RBC Hgb Hct MCHC RDW MCV MCH Lymph % (Auto) [place] % (Auto) [place] # Eos # Lymph # (Auto) [place] # (Auto) Eos # (Auto) Seg Neutrophils % Seg Neuts % (Manual) Baso # (Auto) Lymphocytes % (Manual) Monocytes % (Manual) Eosinophils % (Manual) Basophils % (Manual) Seg Neutrophils # Seg Neutrophils # Man Lymphocytes # (Manual) Monocytes # (Manual) Eosinophils # (Manual) Nucleated RBC % Basophils # (Manual) PT INR APTT Heparin Anti-Xa Level ABG pH POC ABG pO2 ABG pO2 ABG HCO3 ABG O2 Saturation ABG Base Excess POC ABG pCO2 ABG Hemoglobin ABG Oxyhemoglobin ABG Glucose Oxyhemoglobin Sodium Potassium Chloride Carbon Dioxide BUN Creatinine 0.7 L Glucose 110 H POC Glucose 129 H 117 H Lactic Acid Calcium Phosphorus Magnesium AST ALT Lactate Dehydrogenase CK-MB (CK-2) C-Reactive Protein NT-Pro-B Natriuret Pep Total Protein Albumin Arterial Blood Glucose Urine WBC (Auto) 01/10/20 01/11/20 01/11/20 23:52 03:19 12:09 WBC RBC Hgb Hct MCHC RDW MCV MCH Lymph % (Auto) [place] % (Auto) [place] # Eos # Lymph # (Auto) [place] # (Auto) Eos # (Auto) Seg Neutrophils % Seg Neuts % (Manual) Baso # (Auto) Lymphocytes % (Manual) Monocytes % (Manual) Eosinophils % (Manual) Basophils % (Manual) Seg Neutrophils # Seg Neutrophils # Man Lymphocytes # (Manual) Monocytes # (Manual) Eosinophils # (Manual) Nucleated RBC % Basophils # (Manual) PT INR APTT Heparin Anti-Xa Level ABG pH POC ABG pO2 ABG pO2 ABG HCO3 ABG O2 Saturation ABG Base Excess POC ABG pCO2 ABG Hemoglobin ABG Oxyhemoglobin ABG Glucose Oxyhemoglobin Sodium Potassium Chloride Carbon Dioxide BUN Creatinine Glucose POC Glucose 117 H 136 H 115 H Lactic Acid Calcium Phosphorus Magnesium AST ALT Lactate Dehydrogenase CK-MB (CK-2) C-Reactive Protein NT-Pro-B Natriuret Pep Total Protein Albumin Arterial Blood Glucose Urine WBC (Auto) 01/11/20 01/11/20 01/12/20 18:27 23:28 00:23 WBC RBC Hgb 9.8 L Hct 31.6 L MCHC 31 L RDW 17.8 H MCV 83 L MCH 26 L Lymph % (Auto) [place] % (Auto) 8.0 H [place] # Eos # Lymph # (Auto) [place] # (Auto) Eos # (Auto) Seg Neutrophils % Seg Neuts % (Manual) Baso # (Auto) Lymphocytes % (Manual) Monocytes % (Manual) Eosinophils % (Manual) Basophils % (Manual) Seg Neutrophils # Seg Neutrophils # Man Lymphocytes # (Manual) Monocytes # (Manual) Eosinophils # (Manual) Nucleated RBC % Basophils # (Manual) PT INR APTT Heparin Anti-Xa Level ABG pH POC ABG pO2 ABG pO2 ABG HCO3 ABG O2 Saturation ABG Base Excess POC ABG pCO2 ABG Hemoglobin ABG Oxyhemoglobin ABG Glucose Oxyhemoglobin Sodium Potassium Chloride Carbon Dioxide BUN Creatinine Glucose POC Glucose 118 H 122 H Lactic Acid Calcium Phosphorus Magnesium AST ALT Lactate Dehydrogenase CK-MB (CK-2) C-Reactive Protein NT-Pro-B Natriuret Pep Total Protein Albumin Arterial Blood Glucose Urine WBC (Auto) 01/12/20 01/12/20 01/12/20 00:23 04:18 04:18 WBC RBC Hgb 9.6 L Hct 30.9 L MCHC 31 L RDW 17.3 H MCV 81 L MCH 25 L Lymph % (Auto) [place] % (Auto) [place] # Eos # Lymph # (Auto) [place] # (Auto) Eos # (Auto) Seg Neutrophils % Seg Neuts % (Manual) Baso # (Auto) Lymphocytes % (Manual) Monocytes % (Manual) Eosinophils % (Manual) Basophils % (Manual) Seg Neutrophils # Seg Neutrophils # Man Lymphocytes # (Manual) Monocytes # (Manual) Eosinophils # (Manual) Nucleated RBC % Basophils # (Manual) PT INR APTT Heparin Anti-Xa Level ABG pH POC ABG pO2 ABG pO2 ABG HCO3 ABG O2 Saturation ABG Base Excess POC ABG pCO2 ABG Hemoglobin ABG Oxyhemoglobin ABG Glucose Oxyhemoglobin Sodium Potassium Chloride Carbon Dioxide BUN Creatinine 0.7 L 0.7 L Glucose 111 H 108 H POC Glucose Lactic Acid Calcium Phosphorus Magnesium AST ALT Lactate Dehydrogenase CK-MB (CK-2) C-Reactive Protein NT-Pro-B Natriuret Pep Total Protein Albumin 2.6 L Arterial Blood Glucose Urine WBC (Auto) 01/12/20 01/12/20 01/12/20 06:03 12:27 13:58 WBC RBC Hgb Hct MCHC RDW MCV MCH Lymph % (Auto) [place] % (Auto) [place] # Eos # Lymph # (Auto) [place] # (Auto) Eos # (Auto) Seg Neutrophils % Seg Neuts % (Manual) Baso # (Auto) Lymphocytes % (Manual) Monocytes % (Manual) Eosinophils % (Manual) Basophils % (Manual) Seg Neutrophils # Seg Neutrophils # Man Lymphocytes # (Manual) Monocytes # (Manual) Eosinophils # (Manual) Nucleated RBC % Basophils # (Manual) PT INR APTT Heparin Anti-Xa Level ABG pH 7.453 H POC ABG pO2 76.6 L ABG pO2 ABG HCO3 ABG O2 Saturation ABG Base Excess POC ABG pCO2 ABG Hemoglobin 10.3 L ABG Oxyhemoglobin ABG Glucose 99 H Oxyhemoglobin Sodium Potassium Chloride Carbon Dioxide BUN Creatinine Glucose POC Glucose 128 H 121 H Lactic Acid Calcium Phosphorus Magnesium AST ALT Lactate Dehydrogenase CK-MB (CK-2) C-Reactive Protein NT-Pro-B Natriuret Pep Total Protein Albumin Arterial Blood Glucose 99 H Urine WBC (Auto) 01/12/20 01/13/20 01/13/20 18:24 12:01 17:46 WBC RBC Hgb Hct MCHC RDW MCV MCH Lymph % (Auto) [place] % (Auto) [place] # Eos # Lymph # (Auto) [place] # (Auto) Eos # (Auto) Seg Neutrophils % Seg Neuts % (Manual) Baso # (Auto) Lymphocytes % (Manual) Monocytes % (Manual) Eosinophils % (Manual) Basophils % (Manual) Seg Neutrophils # Seg Neutrophils # Man Lymphocytes # (Manual) Monocytes # (Manual) Eosinophils # (Manual) Nucleated RBC % Basophils # (Manual) PT INR APTT Heparin Anti-Xa Level ABG pH POC ABG pO2 ABG pO2 ABG HCO3 ABG O2 Saturation ABG Base Excess POC ABG pCO2 ABG Hemoglobin ABG Oxyhemoglobin ABG Glucose Oxyhemoglobin Sodium Potassium Chloride Carbon Dioxide BUN Creatinine Glucose POC Glucose 119 H 107 H 124 H Lactic Acid Calcium Phosphorus Magnesium AST ALT Lactate Dehydrogenase CK-MB (CK-2) C-Reactive Protein NT-Pro-B Natriuret Pep Total Protein Albumin Arterial Blood Glucose Urine WBC (Auto) 01/13/20 01/14/20 01/14/20 20:40 00:10 05:33 WBC RBC Hgb Hct MCHC RDW MCV MCH Lymph % (Auto) [place] % (Auto) [place] # Eos # Lymph # (Auto) [place] # (Auto) Eos # (Auto) Seg Neutrophils % Seg Neuts % (Manual) Baso # (Auto) Lymphocytes % (Manual) Monocytes % (Manual) Eosinophils % (Manual) Basophils % (Manual) Seg Neutrophils # Seg Neutrophils # Man Lymphocytes # (Manual) Monocytes # (Manual) Eosinophils # (Manual) Nucleated RBC % Basophils # (Manual) PT INR APTT Heparin Anti-Xa Level ABG pH POC ABG pO2 ABG pO2 65.3 L ABG HCO3 31.8 H ABG O2 Saturation 93.5 L ABG Base Excess 6.7 H POC ABG pCO2 ABG Hemoglobin 13.3 L ABG Oxyhemoglobin ABG Glucose Oxyhemoglobin 90.9 L Sodium Potassium Chloride Carbon Dioxide BUN Creatinine Glucose POC Glucose 111 H 111 H Lactic Acid Calcium Phosphorus Magnesium AST ALT Lactate Dehydrogenase CK-MB (CK-2) C-Reactive Protein NT-Pro-B Natriuret Pep Total Protein Albumin Arterial Blood Glucose Urine WBC (Auto) 01/14/20 01/14/20 01/14/20 12:10 16:14 16:14 WBC RBC Hgb 10.6 L Hct 34.2 L MCHC 31 L RDW 18.3 H MCV 83 L MCH 26 L Lymph % (Auto) [place] % (Auto) 7.4 H [place] # Eos # Lymph # (Auto) [place] # (Auto) Eos # (Auto) Seg Neutrophils % 71.9 H Seg Neuts % (Manual) Baso # (Auto) Lymphocytes % (Manual) Monocytes % (Manual) Eosinophils % (Manual) Basophils % (Manual) Seg Neutrophils # Seg Neutrophils # Man Lymphocytes # (Manual) Monocytes # (Manual) Eosinophils # (Manual) Nucleated RBC % Basophils # (Manual) PT INR APTT Heparin Anti-Xa Level ABG pH POC ABG pO2 ABG pO2 ABG HCO3 ABG O2 Saturation ABG Base Excess POC ABG pCO2 ABG Hemoglobin ABG Oxyhemoglobin ABG Glucose Oxyhemoglobin Sodium Potassium Chloride Carbon Dioxide 31 H BUN Creatinine 0.6 L Glucose 131 H POC Glucose 139 H Lactic Acid Calcium Phosphorus Magnesium AST ALT Lactate Dehydrogenase CK-MB (CK-2) C-Reactive Protein NT-Pro-B Natriuret Pep Total Protein Albumin Arterial Blood Glucose Urine WBC (Auto) 01/14/20 01/15/20 01/15/20 18:05 00:52 05:35 WBC RBC Hgb Hct MCHC RDW MCV MCH Lymph % (Auto) [place] % (Auto) [place] # Eos # Lymph # (Auto) [place] # (Auto) Eos # (Auto) Seg Neutrophils % Seg Neuts % (Manual) Baso # (Auto) Lymphocytes % (Manual) Monocytes % (Manual) Eosinophils % (Manual) Basophils % (Manual) Seg Neutrophils # Seg Neutrophils # Man Lymphocytes # (Manual) Monocytes # (Manual) Eosinophils # (Manual) Nucleated RBC % Basophils # (Manual) PT INR APTT Heparin Anti-Xa Level ABG pH POC ABG pO2 ABG pO2 ABG HCO3 ABG O2 Saturation ABG Base Excess POC ABG pCO2 ABG Hemoglobin ABG Oxyhemoglobin ABG Glucose Oxyhemoglobin Sodium Potassium Chloride Carbon Dioxide BUN Creatinine Glucose POC Glucose 147 H 140 H 159 H Lactic Acid Calcium Phosphorus Magnesium AST ALT Lactate Dehydrogenase CK-MB (CK-2) C-Reactive Protein NT-Pro-B Natriuret Pep Total Protein Albumin Arterial Blood Glucose Urine WBC (Auto) 01/15/20 01/15/20 01/16/20 12:52 17:43 00:32 WBC RBC Hgb Hct MCHC RDW MCV MCH Lymph % (Auto) [place] % (Auto) [place] # Eos # Lymph # (Auto) [place] # (Auto) Eos # (Auto) Seg Neutrophils % Seg Neuts % (Manual) Baso # (Auto) Lymphocytes % (Manual) Monocytes % (Manual) Eosinophils % (Manual) Basophils % (Manual) Seg Neutrophils # Seg Neutrophils # Man Lymphocytes # (Manual) Monocytes # (Manual) Eosinophils # (Manual) Nucleated RBC % Basophils # (Manual) PT INR APTT Heparin Anti-Xa Level ABG pH POC ABG pO2 ABG pO2 ABG HCO3 ABG O2 Saturation ABG Base Excess POC ABG pCO2 ABG Hemoglobin ABG Oxyhemoglobin ABG Glucose Oxyhemoglobin Sodium Potassium Chloride Carbon Dioxide BUN Creatinine Glucose POC Glucose 164 H 167 H 153 H Lactic Acid Calcium Phosphorus Magnesium AST ALT Lactate Dehydrogenase CK-MB (CK-2) C-Reactive Protein NT-Pro-B Natriuret Pep Total Protein Albumin Arterial Blood Glucose Urine WBC (Auto) 01/16/20 01/16/20 01/17/20 05:46 11:48 06:38 WBC RBC Hgb Hct MCHC RDW MCV MCH Lymph % (Auto) [place] % (Auto) [place] # Eos # Lymph # (Auto) [place] # (Auto) Eos # (Auto) Seg Neutrophils % Seg Neuts % (Manual) Baso # (Auto) Lymphocytes % (Manual) Monocytes % (Manual) Eosinophils % (Manual) Basophils % (Manual) Seg Neutrophils # Seg Neutrophils # Man Lymphocytes # (Manual) Monocytes # (Manual) Eosinophils # (Manual) Nucleated RBC % Basophils # (Manual) PT INR APTT Heparin Anti-Xa Level ABG pH POC ABG pO2 ABG pO2 ABG HCO3 ABG O2 Saturation ABG Base Excess POC ABG pCO2 ABG Hemoglobin ABG Oxyhemoglobin ABG Glucose Oxyhemoglobin Sodium Potassium Chloride Carbon Dioxide BUN Creatinine Glucose POC Glucose 163 H 155 H 116 H Lactic Acid Calcium Phosphorus Magnesium AST ALT Lactate Dehydrogenase CK-MB (CK-2) C-Reactive Protein NT-Pro-B Natriuret Pep Total Protein Albumin Arterial Blood Glucose Urine WBC (Auto) 01/17/20 01/17/20 01/18/20 11:36 17:43 00:12 WBC RBC Hgb Hct MCHC RDW MCV MCH Lymph % (Auto) [place] % (Auto) [place] # Eos # Lymph # (Auto) [place] # (Auto) Eos # (Auto) Seg Neutrophils % Seg Neuts % (Manual) Baso # (Auto) Lymphocytes % (Manual) Monocytes % (Manual) Eosinophils % (Manual) Basophils % (Manual) Seg Neutrophils # Seg Neutrophils # Man Lymphocytes # (Manual) Monocytes # (Manual) Eosinophils # (Manual) Nucleated RBC % Basophils # (Manual) PT INR APTT Heparin Anti-Xa Level ABG pH POC ABG pO2 ABG pO2 ABG HCO3 ABG O2 Saturation ABG Base Excess POC ABG pCO2 ABG Hemoglobin ABG Oxyhemoglobin ABG Glucose Oxyhemoglobin Sodium Potassium Chloride Carbon Dioxide BUN Creatinine Glucose POC Glucose 110 H 134 H 108 H Lactic Acid Calcium Phosphorus Magnesium AST ALT Lactate Dehydrogenase CK-MB (CK-2) C-Reactive Protein NT-Pro-B Natriuret Pep Total Protein Albumin Arterial Blood Glucose Urine WBC (Auto) 01/18/20 01/18/20 01/18/20 05:37 06:46 06:46 WBC RBC Hgb 10.1 L Hct 32.2 L MCHC 31 L RDW 18.1 H MCV 81 L MCH 25 L Lymph % (Auto) [place] % (Auto) [place] # Eos # Lymph # (Auto) [place] # (Auto) Eos # (Auto) Seg Neutrophils % 71.9 H Seg Neuts % (Manual) Baso # (Auto) Lymphocytes % (Manual) Monocytes % (Manual) Eosinophils % (Manual) Basophils % (Manual) Seg Neutrophils # Seg Neutrophils # Man Lymphocytes # (Manual) Monocytes # (Manual) Eosinophils # (Manual) Nucleated RBC % Basophils # (Manual) PT INR APTT Heparin Anti-Xa Level ABG pH POC ABG pO2 ABG pO2 ABG HCO3 ABG O2 Saturation ABG Base Excess POC ABG pCO2 ABG Hemoglobin ABG Oxyhemoglobin ABG Glucose Oxyhemoglobin Sodium Potassium Chloride Carbon Dioxide BUN Creatinine 0.7 L Glucose 155 H POC Glucose 168 H Lactic Acid Calcium Phosphorus Magnesium AST ALT Lactate Dehydrogenase CK-MB (CK-2) C-Reactive Protein NT-Pro-B Natriuret Pep Total Protein Albumin Arterial Blood Glucose Urine WBC (Auto) 01/18/20 01/18/20 01/18/20 12:05 17:14 23:28 WBC RBC Hgb Hct MCHC RDW MCV MCH Lymph % (Auto) [place] % (Auto) [place] # Eos # Lymph # (Auto) [place] # (Auto) Eos # (Auto) Seg Neutrophils % Seg Neuts % (Manual) Baso # (Auto) Lymphocytes % (Manual) Monocytes % (Manual) Eosinophils % (Manual) Basophils % (Manual) Seg Neutrophils # Seg Neutrophils # Man Lymphocytes # (Manual) Monocytes # (Manual) Eosinophils # (Manual) Nucleated RBC % Basophils # (Manual) PT INR APTT Heparin Anti-Xa Level ABG pH POC ABG pO2 ABG pO2 ABG HCO3 ABG O2 Saturation ABG Base Excess POC ABG pCO2 ABG Hemoglobin ABG Oxyhemoglobin ABG Glucose Oxyhemoglobin Sodium Potassium Chloride Carbon Dioxide BUN Creatinine Glucose POC Glucose 128 H 126 H 128 H Lactic Acid Calcium Phosphorus Magnesium AST ALT Lactate Dehydrogenase CK-MB (CK-2) C-Reactive Protein NT-Pro-B Natriuret Pep Total Protein Albumin Arterial Blood Glucose Urine WBC (Auto) 01/19/20 01/19/20 01/19/20 05:39 12:33 17:36 WBC RBC Hgb Hct MCHC RDW MCV MCH Lymph % (Auto) [place] % (Auto) [place] # Eos # Lymph # (Auto) [place] # (Auto) Eos # (Auto) Seg Neutrophils % Seg Neuts % (Manual) Baso # (Auto) Lymphocytes % (Manual) Monocytes % (Manual) Eosinophils % (Manual) Basophils % (Manual) Seg Neutrophils # Seg Neutrophils # Man Lymphocytes # (Manual) Monocytes # (Manual) Eosinophils # (Manual) Nucleated RBC % Basophils # (Manual) PT INR APTT Heparin Anti-Xa Level ABG pH POC ABG pO2 ABG pO2 ABG HCO3 ABG O2 Saturation ABG Base Excess POC ABG pCO2 ABG Hemoglobin ABG Oxyhemoglobin ABG Glucose Oxyhemoglobin Sodium Potassium Chloride Carbon Dioxide BUN Creatinine Glucose POC Glucose 164 H 171 H 152 H Lactic Acid Calcium Phosphorus Magnesium AST ALT Lactate Dehydrogenase CK-MB (CK-2) C-Reactive Protein NT-Pro-B Natriuret Pep Total Protein Albumin Arterial Blood Glucose Urine WBC (Auto) 01/20/20 01/20/20 01/20/20 00:12 05:20 05:35 WBC RBC Hgb 9.2 L Hct 29.4 L MCHC 31 L RDW 17.9 H MCV 81 L MCH 25 L Lymph % (Auto) [place] % (Auto) [place] # Eos # Lymph # (Auto) [place] # (Auto) Eos # (Auto) Seg Neutrophils % Seg Neuts % (Manual) Baso # (Auto) Lymphocytes % (Manual) Monocytes % (Manual) Eosinophils % (Manual) Basophils % (Manual) Seg Neutrophils # Seg Neutrophils # Man Lymphocytes # (Manual) Monocytes # (Manual) Eosinophils # (Manual) Nucleated RBC % Basophils # (Manual) PT INR APTT Heparin Anti-Xa Level ABG pH POC ABG pO2 ABG pO2 ABG HCO3 ABG O2 Saturation ABG Base Excess POC ABG pCO2 ABG Hemoglobin ABG Oxyhemoglobin ABG Glucose Oxyhemoglobin Sodium Potassium Chloride Carbon Dioxide BUN Creatinine Glucose POC Glucose 120 H 136 H Lactic Acid Calcium Phosphorus Magnesium AST ALT Lactate Dehydrogenase CK-MB (CK-2) C-Reactive Protein NT-Pro-B Natriuret Pep Total Protein Albumin Arterial Blood Glucose Urine WBC (Auto) 01/20/20 01/20/20 01/20/20 05:40 11:58 14:55 WBC RBC Hgb 9.0 L Hct 28.3 L MCHC RDW MCV MCH Lymph % (Auto) [place] % (Auto) [place] # Eos # Lymph # (Auto) [place] # (Auto) Eos # (Auto) Seg Neutrophils % Seg Neuts % (Manual) Baso # (Auto) Lymphocytes % (Manual) Monocytes % (Manual) Eosinophils % (Manual) Basophils % (Manual) Seg Neutrophils # Seg Neutrophils # Man Lymphocytes # (Manual) Monocytes # (Manual) Eosinophils # (Manual) Nucleated RBC % Basophils # (Manual) PT INR APTT Heparin Anti-Xa Level ABG pH POC ABG pO2 ABG pO2 ABG HCO3 ABG O2 Saturation ABG Base Excess POC ABG pCO2 ABG Hemoglobin ABG Oxyhemoglobin ABG Glucose Oxyhemoglobin Sodium Potassium Chloride Carbon Dioxide 32 H BUN 22 H Creatinine 0.7 L Glucose 128 H POC Glucose 152 H Lactic Acid Calcium Phosphorus Magnesium AST ALT Lactate Dehydrogenase CK-MB (CK-2) C-Reactive Protein NT-Pro-B Natriuret Pep Total Protein Albumin Arterial Blood Glucose Urine WBC (Auto) 01/20/20 01/20/20 01/20/20 14:55 18:14 21:35 WBC RBC Hgb Hct MCHC RDW MCV MCH Lymph % (Auto) [place] % (Auto) [place] # Eos # Lymph # (Auto) [place] # (Auto) Eos # (Auto) Seg Neutrophils % Seg Neuts % (Manual) Baso # (Auto) Lymphocytes % (Manual) Monocytes % (Manual) Eosinophils % (Manual) Basophils % (Manual) Seg Neutrophils # Seg Neutrophils # Man Lymphocytes # (Manual) Monocytes # (Manual) Eosinophils # (Manual) Nucleated RBC % Basophils # (Manual) PT 20.4 H INR 1.72 H APTT 40.6 H Heparin Anti-Xa Level > 2.00 H ABG pH POC ABG pO2 ABG pO2 ABG HCO3 ABG O2 Saturation ABG Base Excess POC ABG pCO2 ABG Hemoglobin ABG Oxyhemoglobin ABG Glucose Oxyhemoglobin Sodium Potassium Chloride Carbon Dioxide BUN Creatinine Glucose POC Glucose 150 H Lactic Acid Calcium Phosphorus Magnesium AST ALT Lactate Dehydrogenase CK-MB (CK-2) C-Reactive Protein NT-Pro-B Natriuret Pep Total Protein Albumin Arterial Blood Glucose Urine WBC (Auto) 01/21/20 01/21/20 01/21/20 00:30 05:47 05:59 WBC RBC Hgb Hct MCHC RDW MCV MCH Lymph % (Auto) [place] % (Auto) [place] # Eos # Lymph # (Auto) [place] # (Auto) Eos # (Auto) Seg Neutrophils % Seg Neuts % (Manual) Baso # (Auto) Lymphocytes % (Manual) Monocytes % (Manual) Eosinophils % (Manual) Basophils % (Manual) Seg Neutrophils # Seg Neutrophils # Man Lymphocytes # (Manual) Monocytes # (Manual) Eosinophils # (Manual) Nucleated RBC % Basophils # (Manual) PT INR APTT Heparin Anti-Xa Level 1.93 H ABG pH POC ABG pO2 ABG pO2 ABG HCO3 ABG O2 Saturation ABG Base Excess POC ABG pCO2 ABG Hemoglobin ABG Oxyhemoglobin ABG Glucose Oxyhemoglobin Sodium Potassium Chloride Carbon Dioxide BUN Creatinine Glucose POC Glucose 126 H 148 H Lactic Acid Calcium Phosphorus Magnesium AST ALT Lactate Dehydrogenase CK-MB (CK-2) C-Reactive Protein NT-Pro-B Natriuret Pep Total Protein Albumin Arterial Blood Glucose Urine WBC (Auto) 01/21/20 01/21/20 01/21/20 12:32 18:20 23:54 WBC RBC Hgb Hct MCHC RDW MCV MCH Lymph % (Auto) [place] % (Auto) [place] # Eos # Lymph # (Auto) [place] # (Auto) Eos # (Auto) Seg Neutrophils % Seg Neuts % (Manual) Baso # (Auto) Lymphocytes % (Manual) Monocytes % (Manual) Eosinophils % (Manual) Basophils % (Manual) Seg Neutrophils # Seg Neutrophils # Man Lymphocytes # (Manual) Monocytes # (Manual) Eosinophils # (Manual) Nucleated RBC % Basophils # (Manual) PT INR APTT Heparin Anti-Xa Level 1.28 H ABG pH POC ABG pO2 ABG pO2 ABG HCO3 ABG O2 Saturation ABG Base Excess POC ABG pCO2 ABG Hemoglobin ABG Oxyhemoglobin ABG Glucose Oxyhemoglobin Sodium Potassium Chloride Carbon Dioxide BUN Creatinine Glucose POC Glucose 112 H 146 H Lactic Acid Calcium Phosphorus Magnesium AST ALT Lactate Dehydrogenase CK-MB (CK-2) C-Reactive Protein NT-Pro-B Natriuret Pep Total Protein Albumin Arterial Blood Glucose Urine WBC (Auto) 01/22/20 01/22/20 01/22/20 04:45 04:45 05:48 WBC RBC Hgb 9.3 L Hct 29.0 L MCHC RDW MCV MCH Lymph % (Auto) [place] % (Auto) [place] # Eos # Lymph # (Auto) [place] # (Auto) Eos # (Auto) Seg Neutrophils % Seg Neuts % (Manual) Baso # (Auto) Lymphocytes % (Manual) Monocytes % (Manual) Eosinophils % (Manual) Basophils % (Manual) Seg Neutrophils # Seg Neutrophils # Man Lymphocytes # (Manual) Monocytes # (Manual) Eosinophils # (Manual) Nucleated RBC % Basophils # (Manual) PT INR APTT Heparin Anti-Xa Level 1.34 H ABG pH POC ABG pO2 ABG pO2 ABG HCO3 ABG O2 Saturation ABG Base Excess POC ABG pCO2 ABG Hemoglobin ABG Oxyhemoglobin ABG Glucose Oxyhemoglobin Sodium Potassium Chloride Carbon Dioxide BUN Creatinine Glucose POC Glucose 142 H Lactic Acid Calcium Phosphorus Magnesium AST ALT Lactate Dehydrogenase CK-MB (CK-2) C-Reactive Protein NT-Pro-B Natriuret Pep Total Protein Albumin Arterial Blood Glucose Urine WBC (Auto) 01/22/20 01/22/20 01/22/20 08:09 08:22 09:58 WBC RBC Hgb Hct MCHC RDW MCV MCH Lymph % (Auto) [place] % (Auto) [place] # Eos # Lymph # (Auto) [place] # (Auto) Eos # (Auto) Seg Neutrophils % Seg Neuts % (Manual) Baso # (Auto) Lymphocytes % (Manual) Monocytes % (Manual) Eosinophils % (Manual) Basophils % (Manual) Seg Neutrophils # Seg Neutrophils # Man Lymphocytes # (Manual) Monocytes # (Manual) Eosinophils # (Manual) Nucleated RBC % Basophils # (Manual) PT 16.9 H INR 1.34 H APTT Heparin Anti-Xa Level ABG pH POC ABG pO2 ABG pO2 ABG HCO3 ABG O2 Saturation ABG Base Excess POC ABG pCO2 ABG Hemoglobin ABG Oxyhemoglobin ABG Glucose Oxyhemoglobin Sodium Potassium Chloride 97.8 L Carbon Dioxide BUN 29 H Creatinine Glucose 128 H POC Glucose 131 H Lactic Acid Calcium Phosphorus Magnesium AST ALT Lactate Dehydrogenase CK-MB (CK-2) C-Reactive Protein NT-Pro-B Natriuret Pep Total Protein Albumin Arterial Blood Glucose Urine WBC (Auto) 01/22/20 01/22/20 01/22/20 12:44 16:13 18:18 WBC RBC Hgb Hct MCHC RDW MCV MCH Lymph % (Auto) [place] % (Auto) [place] # Eos # Lymph # (Auto) [place] # (Auto) Eos # (Auto) Seg Neutrophils % Seg Neuts % (Manual) Baso # (Auto) Lymphocytes % (Manual) Monocytes % (Manual) Eosinophils % (Manual) Basophils % (Manual) Seg Neutrophils # Seg Neutrophils # Man Lymphocytes # (Manual) Monocytes # (Manual) Eosinophils # (Manual) Nucleated RBC % Basophils # (Manual) PT INR APTT Heparin Anti-Xa Level ABG pH POC ABG pO2 ABG pO2 ABG HCO3 ABG O2 Saturation ABG Base Excess POC ABG pCO2 ABG Hemoglobin ABG Oxyhemoglobin ABG Glucose Oxyhemoglobin Sodium Potassium Chloride Carbon Dioxide BUN Creatinine Glucose POC Glucose 156 H 133 H 155 H Lactic Acid Calcium Phosphorus Magnesium AST ALT Lactate Dehydrogenase CK-MB (CK-2) C-Reactive Protein NT-Pro-B Natriuret Pep Total Protein Albumin Arterial Blood Glucose Urine WBC (Auto) 01/22/20 01/23/20 01/23/20 23:22 05:37 12:59 WBC RBC Hgb Hct MCHC RDW MCV MCH Lymph % (Auto) [place] % (Auto) [place] # Eos # Lymph # (Auto) [place] # (Auto) Eos # (Auto) Seg Neutrophils % Seg Neuts % (Manual) Baso # (Auto) Lymphocytes % (Manual) Monocytes % (Manual) Eosinophils % (Manual) Basophils % (Manual) Seg Neutrophils # Seg Neutrophils # Man Lymphocytes # (Manual) Monocytes # (Manual) Eosinophils # (Manual) Nucleated RBC % Basophils # (Manual) PT INR APTT Heparin Anti-Xa Level ABG pH POC ABG pO2 ABG pO2 ABG HCO3 ABG O2 Saturation ABG Base Excess POC ABG pCO2 ABG Hemoglobin ABG Oxyhemoglobin ABG Glucose Oxyhemoglobin Sodium Potassium Chloride Carbon Dioxide BUN Creatinine Glucose POC Glucose 148 H 163 H 175 H Lactic Acid Calcium Phosphorus Magnesium AST ALT Lactate Dehydrogenase CK-MB (CK-2) C-Reactive Protein NT-Pro-B Natriuret Pep Total Protein Albumin Arterial Blood Glucose Urine WBC (Auto) 01/23/20 01/23/20 01/24/20 17:28 23:56 04:30 WBC RBC 3.46 L Hgb 8.8 L Hct 27.8 L MCHC RDW 18.2 H MCV 81 L MCH 25 L Lymph % (Auto) [place] % (Auto) 7.8 H [place] # Eos # Lymph # (Auto) [place] # (Auto) Eos # (Auto) Seg Neutrophils % Seg Neuts % (Manual) Baso # (Auto) Lymphocytes % (Manual) Monocytes % (Manual) Eosinophils % (Manual) Basophils % (Manual) Seg Neutrophils # Seg Neutrophils # Man Lymphocytes # (Manual) Monocytes # (Manual) Eosinophils # (Manual) Nucleated RBC % Basophils # (Manual) PT INR APTT Heparin Anti-Xa Level ABG pH POC ABG pO2 ABG pO2 ABG HCO3 ABG O2 Saturation ABG Base Excess POC ABG pCO2 ABG Hemoglobin ABG Oxyhemoglobin ABG Glucose Oxyhemoglobin Sodium Potassium Chloride Carbon Dioxide BUN Creatinine Glucose POC Glucose 165 H 177 H Lactic Acid Calcium Phosphorus Magnesium AST ALT Lactate Dehydrogenase CK-MB (CK-2) C-Reactive Protein NT-Pro-B Natriuret Pep Total Protein Albumin Arterial Blood Glucose Urine WBC (Auto) 01/24/20 01/24/20 01/24/20 04:30 07:18 12:06 WBC RBC Hgb Hct MCHC RDW MCV MCH Lymph % (Auto) [place] % (Auto) [place] # Eos # Lymph # (Auto) [place] # (Auto) Eos # (Auto) Seg Neutrophils % Seg Neuts % (Manual) Baso # (Auto) Lymphocytes % (Manual) Monocytes % (Manual) Eosinophils % (Manual) Basophils % (Manual) Seg Neutrophils # Seg Neutrophils # Man Lymphocytes # (Manual) Monocytes # (Manual) Eosinophils # (Manual) Nucleated RBC % Basophils # (Manual) PT INR APTT Heparin Anti-Xa Level ABG pH POC ABG pO2 ABG pO2 ABG HCO3 ABG O2 Saturation ABG Base Excess POC ABG pCO2 ABG Hemoglobin ABG Oxyhemoglobin ABG Glucose Oxyhemoglobin Sodium Potassium Chloride 97.9 L Carbon Dioxide BUN 31 H Creatinine Glucose 146 H POC Glucose 151 H 133 H Lactic Acid Calcium Phosphorus Magnesium AST ALT Lactate Dehydrogenase CK-MB (CK-2) C-Reactive Protein NT-Pro-B Natriuret Pep Total Protein Albumin Arterial Blood Glucose Urine WBC (Auto) Chest x-ray: image reviewed Allied health notes reviewed: RT
[2020-01-24] MEDS: POLYETHYLENE GLYCOL 3350 17 GM POWDER PO SCH (21:36)
[2020-01-24] MEDS: TAMSULOSIN 0.4 MG CAP PO SCH (21:37)
[2020-01-24] MEDS: MORPHINE 2 MG/1 ML INJ IV PRN (22:40)
[2020-01-25] MEDS: LORazepam 2 MG/ML VIAL IV PRN ×2 (00:20→15:52)
[2020-01-25] MEDS: METOPROLOL TARTRATE 25 MG TAB PO SCH ×4 (01:19→19:07)
[2020-01-25 05:03] LABS: Basophils # (Auto) 0.1 K/mm3 (0.0-0.1); Basophils % (Auto) 0.7 % (0.0-1.8); Eosinophils # (Auto) 0.3 K/mm3 (0.0-0.4); Eosinophils % (Auto) 3.6 % (0.0-4.3); Hematocrit 27.9 % (35.5-45.6); Hemoglobin 8.7 gm/dl (11.8-15.2); Lymphocytes # (Auto) 2.2 K/mm3 (1.2-5.4); Lymphocytes % (Auto) 24.4 % (13.4-35.0); Mean Corpuscular HGB Conc 31 % (32-34); Mean Corpuscular Volume 80 fl (84-94); Monocytes # (Auto) 0.8 K/mm3 (0.0-0.8); Monocytes % (Auto) 8.5 % (0.0-7.3); Platelet Count 277 K/mm3 (140-440); Red Cell Distribution Width 18.2 % (13.2-15.2)
[2020-01-25 05:13] LABS: BUN/Creatinine Ratio 38; Blood Urea Nitrogen 30 mg/dL (9-20); Calcium 9.3 mg/dL (8.4-10.2); Hemolysis Index 0
[2020-01-25] MEDS: FUROSEMIDE 20 MG/2 ML INJ IV SCH ×2 (06:15→17:21)
[2020-01-25] MEDS: NITROGLYCERIN 0.4 MG PATCH 24HR TD SCH (06:15)
--- NOTE | 2020-01-25 10:07 | Progress Note ---
Assessment and Plan Assessment and plan: --Ischemic cardiomyopathy Cardiology is following, status post cardiac catheterization on 01/22/2020; Co ronary artery disease status post PCI and stent to the LAD Continue current cardiac medications --Acute on chronic hypoxemic respiratory failure; Patient has tracheostomy on vent Continue nebulizers, , trach care Wean off ventilator as tolerated Pulmonary critical following --Acute exacerbation of COPD; Patient is currently on ventilatory support Continue nebulizers --Left lower lobe PE; Continue Eliquis, ventilatory support --Acute right lower extremity DVT; Patient is on Eliquis --Bilateral multifocal pneumonia/community-acquired Completed antibiotics, improved --Severe sepsis/bilateral pneumonia: Completed antibiotics COVID-19 test; 11/24/2019; negative 11/26/2019; negative 12/29/2019: Negative --Paroxysmal atrial fibrillation; Now rate controlled, Stable on amiodarone and Eliquis --Acute on chronic combined systolic and diastolic congestive heart failure Ischemic cardiomyopathy left ventricular ejection fraction 40 to 45% --H/o CAD [[facility] 12/2018 in-stent restenosis] Patient is stable on current cardiac medications --Hypertensive emergency; present on admission Reasonable blood pressures, continue current antihypertensives As needed medications --History of alcohol abuse/alcohol withdrawal; Was on CIWA protocol, now stable --Oropharyngeal dysphagia; status post PEG placement Continue PEG feeds per protocol --History of partial small bowel obstruction; resolved Surgery evaluated. --Obesity; BMI 34.7 Patient needs weight reduction when medically stable --Severe protein calorie malnutrition/hypoalbuminemia Nutrition supplements, dietitian following, PEG feeds --DVT prophylaxis;Eliquis --Full CODE STATUS 01/05; Pt stable. NGT output 650cc over 24 hours, bilious. No f/c, WBC within normal limits. cont NG suction and cont to hold TF 01/06: Abs series - mild improvement in small bowel distension in mid abdomen, normal gas/stool pattern in colon. NGT in duodenum. Continue to hold tube feeding, maintain NG tube with low intermittent suction. Patient's was updated by phone. Continue to provide supportive care and monitor clinically. 01/07: +BMs today and NGT/PEG output appears more gastric today. Plan to clamp NGT, if tolerates start TF from tomorrow. cont supportive care. 01/08; Gastric output decreased over last 24 hours. NGT has been clamped x 24 hours. plan to dc NGT and to start TTF via PEG - vital HF @10cc/hr 01/09: clinically stable, tolerating TF. monitor BMP, wean off from vent as tolerated clinically stable, on TF. wean off vent as tolerated 01/11: wean off from vent, cont to monitor, on TF 01/12: wean off from vent, cont to monitor, on TF. need placement - unfunded 01/13; remains on ventilatory support, unable to wean, DC planning possible LTAC, unfunded 01/14; patient of ventilatory support, T-piece tracheostomy on oxygen, LTAC placement per case management 01/16; tracheostomy, patient on full ventilatory support, wean off vent support as tolerated, pending LTAC placement, social financial issues 01/17; awaiting LTAC placement, insurance and financial issues 01/18; patient tracheostomy remains on ventilatory support 01/19; wean off ventilator as tolerated 01/20; remains on ventilatory support, patient complains of intermittent chest pain, cardiology recommend left heart catheterization tomorrow 01/22/2020. Patient for left heart catheterization per cardiology. Patient remains on AC mode ventilation rate 12, tidal volume 450, FiO2 30% and PEEP of 6. Continue tracheostomy care, airway management and secretion control. 01/23/2020. Cardiac catheterization completed yesterday revealed widely patent previous LAD stent with mild nonobstructive atherosclerosis of the right mid coronary artery and rest of the coronary system was without significant atherosclerosis. The left ventricle ejection fraction was mildly impaired at 40 to 45%. There was some hypokinesis of the basal inferior wall suggestive of previous or recent infarct. Continue GDMT for coronary artery disease including beta blockers, topical nitrates, statin and Plavix. Continue Eliquis for paroxysmal atrial fibrillation and PE. Continue diuresis with Lasix and follow electrolytes closely. Continue Robinul and scopolamine for secretion control and daily SBT per pulmonary. Also, continue bronchodilators and routine trach care/airway management. T-piece trials per pulmonary as tolerated. 01/24/2020. Recent cardiac catheterization has documented widely patent left anterior descending artery stent with minimal nonobstructive diffuse coronary artery disease in the rest of the coronary arteries. Evidence of ischemic cardiomyopathy with inferior wall hypokinesis. Continue with guideline directed medical therapy. Continue Robinul and scopolamine for secretion control and daily SBT per pulmonary. Continue bronchodilators and routine trach care/airway management. T-piece trials per pulmonary as tolerated. 01/25/2020. Continue with guideline directed medical therapy for systolic heart failure. Cardiac catheterization revealed evidence of ischemic cardiomyopathy with inferior wall hypokinesis (EF 40-45%). Patient currently on T-piece with oxygen 10 L/min FiO2 40%. Continue Robinul and scopolamine for secretion control. Continue bronchodilators and routine trach care/airway management. The high probability of a clinically significant, sudden or life threatening deterioration of the [Respiratory, cardiovascular & neurological] system(s) required my full and direct attention, intervention and personal management. The aggregate critical care time was [32] minutes without overlap. Time includes spent on [x] Data Review and interpretation [x] Patient assessment and monitoring of vital signs [x] Documentation [x] Medication orders and management History Interval history: Patient is a 64-year-old male with known history of hypertension, COPD, history of coronary artery disease, CHF with ejection fraction of 20 to 25% in August 2018 presenting to the emergency room via EMS complaining of shortness of breath. Patient was found to be hypoxic and in respiratory distress. Patient was placed on CPAP in route to the hospital. Patient remained hypoxic on CPAP BiPAP ,subsequently was intubated. Work-up in the emergency room including chest x-ray reveals bilateral pneumonia. He had an elevated white count of 14 and also had an elevated BNP. sputum cultures positive for Pseudomonas, ID treated with cefepime and Vanco. His hospital course became complicated with acute PE, DVT, paroxysmal atrial fib - placed on chronic anticoagulation. Patient was difficult to wean off, status post trach and PEG, remains on mechanical ventilation with trach tube. He then developed partial small bowel obstruction valuated by general surgeon symptom improved with medical Mx, patient was briefly weaned off ventilatory support however, was in respiratory failure requiring full ventilatory support. Cardiac catheterization on 01/22/2020. No new issues overnight. Hospitalist Physical - Constitutional Vitals: Temp Pulse Resp BP Pulse Ox 98.3 F 122 H 25 H 123/89 96 01/25/20 06:43 01/25/20 09:00 01/25/20 09:00 01/25/20 09:00 01/25/20 09:36 General appearance: Present: well-nourished, obese, other (Tracheostomy on vent) - EENT Eyes: Present: PERRL, EOM intact ENT: hearing intact, clear oral mucosa, dentition normal - Neck Neck: Present: supple, normal ROM - Respiratory Respiratory effort: normal Respiratory: bilateral: CTA - Cardiovascular Rhythm: regular Heart Sounds: Present: S1 & S2. Absent: gallop, rub - Extremities Extremities: no ischemia, No edema, Full ROM - Abdominal General gastrointestinal: soft, non-tender, non-distended, normal bowel sounds - Integumentary Integumentary: Present: clear, warm, dry - Neurologic Neurologic: CNII-XII intact, moves all extremities HEART Score - HEART Score Troponin: Troponin T < 0.010 ng/mL (0.00-0.029) 01/19/20 01:35 Results - Labs CBC & Chem 7: 01/25/20 04:25 01/25/20 04:25 Labs: Laboratory Last Values WBC 8.9 K/mm3 (4.5-11.0) 01/25/20 04:25 RBC 3.50 M/mm3 (3.65-5.03) L 01/25/20 04:25 Hgb 8.7 gm/dl (11.8-15.2) L 01/25/20 04:25 Hct 27.9 % (35.5-45.6) L 01/25/20 04:25 MCV 80 fl (84-94) L 01/25/20 04:25 MCH 25 pg (28-32) L 01/25/20 04:25 MCHC 31 % (32-34) L 01/25/20 04:25 RDW 18.2 % (13.2-15.2) H 01/25/20 04:25 Plt Count 277 K/mm3 (140-440) 01/25/20 04:25 Lymph % (Auto) 24.4 % (13.4-35.0) 01/25/20 04:25 Sawyer % (Auto) 8.5 % (0.0-7.3) H 01/25/20 04:25 Eos % (Auto) 3.6 % (0.0-4.3) 01/25/20 04:25 Baso % (Auto) 0.7 % (0.0-1.8) 01/25/20 04:25 Lymph # (Auto) 2.2 K/mm3 (1.2-5.4) 01/25/20 04:25 Sawyer # (Auto) 0.8 K/mm3 (0.0-0.8) 01/25/20 04:25 Eos # (Auto) 0.3 K/mm3 (0.0-0.4) 01/25/20 04:25 Baso # (Auto) 0.1 K/mm3 (0.0-0.1) 01/25/20 04:25 Add Manual Diff Complete 12/19/19 11:32 Total Counted 100 12/19/19 11:32 Seg Neutrophils % 62.8 % (40.0-70.0) 01/25/20 04:25 Seg Neuts % (Manual) 82.0 % (40.0-70.0) H 12/19/19 11:32 Band Neutrophils % 0 % 12/19/19 11:32 Lymphocytes % (Manual) 10.0 % (13.4-35.0) L 12/19/19 11:32 Reactive Lymphs % (Man) 0 % 12/19/19 11:32 Monocytes % (Manual) 6.0 % (0.0-7.3) 12/19/19 11:32 Eosinophils % (Manual) 2.0 % (0.0-4.3) 12/19/19 11:32 Basophils % (Manual) 0 % (0.0-1.8) 12/19/19 11:32 Metamyelocytes % 0 % 12/19/19 11:32 Myelocytes % 0 % 12/19/19 11:32 Promyelocytes % 0 % 12/19/19 11:32 Blast Cells % 0 % 12/19/19 11:32 Nucleated RBC % 1.0 % (0.0-0.9) H 12/19/19 11:32 Seg Neutrophils # 5.6 K/mm3 (1.8-7.7) 01/25/20 04:25 Seg Neutrophils # Man 12.0 K/mm3 (1.8-7.7) H 12/19/19 11:32 Band Neutrophils # 0.0 K/mm3 12/19/19 11:32 Lymphocytes # (Manual) 1.5 K/mm3 (1.2-5.4) 12/19/19 11:32 Abs React Lymphs (Man) 0.0 K/mm3 12/19/19 11:32 Monocytes # (Manual) 0.9 K/mm3 (0.0-0.8) H 12/19/19 11:32 Eosinophils # (Manual) 0.3 K/mm3 (0.0-0.4) 12/19/19 11:32 Basophils # (Manual) 0.0 K/mm3 (0.0-0.1) 12/19/19 11:32 Metamyelocytes # 0.0 K/mm3 12/19/19 11:32 Myelocytes # 0.0 K/mm3 12/19/19 11:32 Promyelocytes # 0.0 K/mm3 12/19/19 11:32 Blast Cells # 0.0 K/mm3 12/19/19 11:32 WBC Morphology Not Reportable 12/19/19 11:32 Hypersegmented Neuts Not Reportable 12/19/19 11:32 Hyposegmented Neuts Not Reportable 12/19/19 11:32 Hypogranular Neuts Not Reportable 12/19/19 11:32 Smudge Cells Not Reportable 12/19/19 11:32 Toxic Granulation Not Reportable 12/19/19 11:32 Toxic Vacuolation Not Reportable 12/19/19 11:32 Dohle Bodies Not Reportable 12/19/19 11:32 Pelger-Huet Anomaly Not Reportable 12/19/19 11:32 Hector Rods Not Reportable 12/19/19 11:32 Platelet Estimate Consistent w auto 12/19/19 11:32 Clumped Platelets Not Reportable 12/19/19 11:32 Plt Clumps, EDTA Not Reportable 12/19/19 11:32 Large Platelets Not Reportable 12/19/19 11:32 Giant Platelets Not Reportable 12/19/19 11:32 Platelet Satelliting Not Reportable 12/19/19 11:32 Plt Morphology Comment Not Reportable 12/19/19 11:32 RBC Morphology Not Reportable 12/19/19 11:32 Dimorphic RBCs Not Reportable 12/19/19 11:32 Polychromasia Not Reportable 12/19/19 11:32 Hypochromasia Few 12/19/19 11:32 Poikilocytosis Not Reportable 12/19/19 11:32 Anisocytosis 1+ 12/19/19 11:32 Microcytosis Few 12/19/19 11:32 Macrocytosis Few 12/19/19 11:32 Spherocytes Not Reportable 12/19/19 11:32 Pappenheimer Bodies Not Reportable 12/19/19 11:32 Sickle Cells Not Reportable 12/19/19 11:32 Target Cells Not Reportable 12/19/19 11:32 Tear Drop Cells Not Reportable 12/19/19 11:32 Ovalocytes Not Reportable 12/19/19 11:32 Helmet Cells Not Reportable 12/19/19 11:32 [place] Bodies Not Reportable 12/19/19 11:32 [place] Rings Not Reportable 12/19/19 11:32 [place] Cells Not Reportable 12/19/19 11:32 Bite Cells Not Reportable 12/19/19 11:32 Crenated Cell Not Reportable 12/19/19 11:32 Elliptocytes Not Reportable 12/19/19 11:32 Acanthocytes (Spur) Not Reportable 12/19/19 11:32 Rouleaux Not Reportable 12/19/19 11:32 Hemoglobin C Crystals Not Reportable 12/19/19 11:32 Schistocytes Not Reportable 12/19/19 11:32 Malaria parasites Not Reportable 12/19/19 11:32 Clifford Bodies Not Reportable 12/19/19 11:32 Hem Pathologist Commnt No 12/19/19 11:32 PT 16.9 Sec. (12.2-14.9) H 01/22/20 09:58 INR 1.34 (0.87-1.13) H 01/22/20 09:58 APTT 31.5 Sec. (24.2-36.6) 01/22/20 09:58 Heparin Anti-Xa Level 1.34 U.I./ml (0.3-0.7) H 01/22/20 04:45 ABG pH 7.449 pH Units (7.350-7.450) 01/13/20 20:40 POC ABG pCO2 45.6 mmHg (32.0-48.0) 01/12/20 13:58 ABG pCO2 46.9 mm Hg 01/13/20 20:40 POC ABG pO2 76.6 mmHg (83-108) L 01/12/20 13:58 ABG pO2 65.3 mm Hg (80.0-90.0) L 01/13/20 20:40 POC ABG HCO3 31.2 01/12/20 13:58 ABG HCO3 31.8 mmol/L (20.0-26.0) H 01/13/20 20:40 ABG O2 Saturation 93.5 % (95.0-99.0) L 01/13/20 20:40 ABG O2 Content 17.0 (0.0-44) 01/13/20 20:40 POC ABG Base Excess 6.5 01/12/20 13:58 ABG Base Excess 6.7 mmol/L (-2.0-3.0) H 01/13/20 20:40 ABG Hemoglobin 13.3 gm/dl (14.0-18.0) L 01/13/20 20:40 ABG Oxyhemoglobin 84 (94-98) L 12/22/19 03:22 ABG Carboxyhemoglobin 2.2 % (0.0-5.0) 01/13/20 20:40 ABG Methemoglobin 0.6 % (0.0-1.5) 01/13/20 20:40 ABG Sodium 136.8 mmol/L (136.0-145.0) 01/12/20 13:58 ABG Potassium 3.7 mmol/L (3.40-4.50) 01/12/20 13:58 ABG Chloride 103.0 mmol/L (98-107) 01/12/20 13:58 ABG Glucose 99 mg/dL (65-95) H 01/12/20 13:58 Oxyhemoglobin 90.9 % (95.0-99.0) L 01/13/20 20:40 Carboxyhemoglobin 0.7 (0.5-1.5) 12/22/19 03:22 FiO2 35 % 01/13/20 20:40 Sodium 142 mmol/L (137-145) 01/25/20 04:25 Potassium 4.2 mmol/L (3.6-5.0) 01/25/20 04:25 Chloride 99.5 mmol/L (98-107) 01/25/20 04:25 Carbon Dioxide 30 mmol/L (22-30) 01/25/20 04:25 Anion Gap 17 mmol/L 01/25/20 04:25 BUN 30 mg/dL (9-20) H 01/25/20 04:25 Creatinine 0.8 mg/dL (0.8-1.3) 01/25/20 04:25 Estimated GFR > 60 ml/min 01/25/20 04:25 BUN/Creatinine Ratio 38 % 01/25/20 04:25 Glucose 134 mg/dL (75-100) H 01/25/20 04:25 POC Glucose 129 mg/dL (70-105) H 01/25/20 05:38 Lactic Acid 2.50 mmol/L (0.7-2.0) H* 11/24/19 10:37 Magnesium 2.60 mg/dL (1.7-2.3) H 12/07/19 12:41 Calcium 9.3 mg/dL (8.4-10.2) 01/25/20 04:25 Ferritin 84.4 ng/mL (30.0-300.0) 11/24/19 04:53 Direct Bilirubin < 0.2 mg/dL (0-0.2) 12/08/19 03:55 Indirect Bilirubin 0.2 mg/dL 12/08/19 03:55 Phosphorus 3.40 mg/dL (2.5-4.5) 01/12/20 12:01 Total Bilirubin 0.50 mg/dL (0.1-1.2) 01/12/20 00:23 Total Creatine Kinase 141 units/L (55-170) 11/24/19 02:53 CK-MB (CK-2) 4.3 ng/mL (0.0-4.0) H 11/24/19 02:53 AST 16 units/L (5-40) 01/12/20 00:23 ALT 22 units/L (7-56) 01/12/20 00:23 CK-MB (CK-2) Rel Index 3.0 (0-4) 11/24/19 02:53 Alkaline Phosphatase 59 units/L (35-129) 01/12/20 00:23 C-Reactive Protein 8.50 mg/dL (0.00-1.30) H 12/01/19 12:16 Lactate Dehydrogenase 228 units/L (91-180) H 12/19/19 04:45 Troponin T < 0.010 ng/mL (0.00-0.029) 01/19/20 01:35 NT-Pro-B Natriuret Pep 3866 pg/mL (0-900) H 01/01/20 10:40 Total Protein 6.3 g/dL (6.3-8.2) 01/12/20 00:23 Albumin 2.6 g/dL (3.9-5) L 01/12/20 00:23 Albumin/Globulin Ratio 0.7 % 01/12/20 00:23 Procalcitonin 0.76 ng/mL (<0.15) 01/01/20 10:40 Arterial Blood Glucose 99 mg/dL (65-95) H 01/12/20 13:58 Arterial Blood Ionized Calcium 4.8 mg/dL (4.6-5.3) 01/12/20 13:58 Urine Color Cecy (Yellow) 12/31/19 18:04 Urine Turbidity Clear (Clear) 12/31/19 18:04 Urine pH 5.0 (5.0-7.0) 12/31/19 18:04 Ur Specific [place] 1.023 (1.003-1.030) 12/31/19 18:04 Urine Protein <15 mg/dl mg/dL (Negative) 12/31/19 18:04 Urine Glucose (UA) Neg mg/dL (Negative) 12/31/19 18:04 Urine Ketones Neg mg/dL (Negative) 12/31/19 18:04 Urine Blood Neg (Negative) 12/31/19 18:04 Urine Bacteria (Auto) 1+ /HPF (Negative) 12/03/19 06:03 Urine Nitrite Neg (Negative) 12/31/19 18:04 Urine Bilirubin Neg (Negative) 12/31/19 18:04 Urine Urobilinogen 4.0 mg/dL (<2.0) 12/31/19 18:04 Ur Leukocyte Esterase Neg (Negative) 12/31/19 18:04 Urine WBC (Auto) 2.0 /HPF (0.0-6.0) 12/31/19 18:04 Urine RBC (Auto) 3.0 /HPF (0.0-6.0) 12/31/19 18:04 U Epithel Cells (Auto) 2.0 /HPF (0-13.0) 12/31/19 18:04 Urine Mucus 1+ /HPF 12/31/19 18:04 Vancomycin Trough 14.2 ug/mL (5.0-20.0) 12/13/19 15:01 Coronavirus (PCR) Negative (Negative) 12/29/19 10:07 Blood Type O POSITIVE 01/21/20 13:00 Antibody Screen Negative 01/21/20 13:00 - Diagnostic Impressions Diagnostic Impressions: Echocardiogram 11/29/19 07:37 Transthoracic Echocardiogram Indication: CHF BP: 116/72 HR: 33 Conclusions *The study is technically limited due to poor acoustic windows. *Global left ventricular systolic function is normal. *The estimated ejection fraction is 50-55%. *Mild concentric left ventricular hypertrophy is observed. *There is trace of mitral regurgitation. *There is mild tricuspid regurgitation. Findings Procedure Info: The study quality is poor. The study is technically limited due to poor acoustic windows. The study is technically limited due to patient body habitus. Left Ventricle: The left ventricular chamber size is normal. Mild concentric left ventricular hypertrophy is observed. Global left ventricular systolic function is normal. The estimated ejection fraction is 50-55%. Left Atrium: The left atrial chamber size is normal. Right Ventricle: The right ventricular cavity size is normal. Right Atrium: The right atrial cavity size is normal. Aortic Valve: The aortic valve leaflets are moderately thickened. There is trace of aortic regurgitation. There is no evidence of aortic stenosis. Mitral Valve: The mitral valve leaflets are mildly thickened. There is trace of mitral regurgitation. There is no evidence of mitral stenosis. Tricuspid Valve: There is mild tricuspid regurgitation. No pulmonary hypertension is noted. Pulmonic Valve: There is trace pulmonic regurgitation. Pericardium: There is no pericardial effusion. Aorta: There is no dilatation of the aortic root. Venous: The inferior vena cava appears normal in size. Contrast: Definity was used to optimize study. Intravenous contrast was used to enhance endocardial border definition. Measurements Chambers 2D Name Value Normal Range Ao root diameter (2D) 3.4 cm (2 - 3.7) Aortic Valve Name Value Normal Range AV Vmax 0.98 m/sec - AV VTI 16.76 cm - AV peak gradient 3.83 mmHg - AV mean gradient 2.57 mmHg - LVOT diameter 3.11 cm - LVOT Vmax 0.68 m/sec - LVOT VTI 11.52 cm - LVOT peak gradient 1.84 mmHg - LVOT mean gradient 1.27 mmHg - SV LVOT 87.31 ml - MALOU (continuity Vmax) 5.24 cm2 - MALOU (continuity VTI) 5.21 cm2 - Tricuspid Valve Name Value Normal Range IVC diameter 2.24 cm (1.2 - 2.3) Hoffman/IV: Voiding Method Condom Catheter IV Catheter Type [Right INT / Saline Lock Forearm] IV Catheter Type [Right Hand] Peripheral IV IV Catheter Type [Right Upper INT / Saline Lock arm] IV Catheter Type [Left Upper Mid-line arm] IV Catheter Type [Left Forearm INT / Saline Lock ] IV Catheter Type [Left Hand] INT / Saline Lock IV Catheter Type [Left Wrist] INT / Saline Lock IV Catheter Type [Right Peripheral IV Antecubital] Active Medications - Current Medications Current Medications: Generic Name Dose Route Start Last Admin Trade Name Freq PRN Reason Stop Dose Admin Acetaminophen 650 mg 12/31/19 11:43 01/14/20 08:27 Tylenol FEEDTUBE 650 mg Q6H PRN Administration Pain, Mild (1-3) Amiodarone HCl 200 mg 01/21/20 06:00 01/24/20 10:53 Cordarone PO 200 mg QDAY CAR Administration Lipase/Protease/Amylase 1 each 01/09/20 12:01 Pancreaztao Betancourt 10,500 Unit FEEDTUBE PRN PRN For Clogged Feeding Tube Apixaban 5 mg 01/22/20 22:00 01/24/20 21:36 Eliquis PO 5 mg Q12HR CAR Administration Protocol Atorvastatin Calcium 40 mg 01/20/20 22:00 01/24/20 21:36 Lipitor PO 40 mg QHS CAR Administration Bisacodyl 10 mg 01/06/20 13:00 01/24/20 14:35 Dulcolax [place] Not Given DAILY CAR Clopidogrel Bisulfate 75 mg 01/21/20 06:00 01/24/20 10:53 Plavix PO 75 mg QDAY CAR Administration Docusate Sodium 100 mg 12/02/19 22:00 01/24/20 21:36 Colace FEEDTUBE 100 mg BID CAR Administration Famotidine 20 mg 01/12/20 10:00 01/24/20 21:37 Pepcid PO 20 mg BID CAR Administration Furosemide 20 mg 01/20/20 06:00 01/25/20 06:15 Lasix IV 20 mg 0600,1800 CAR Administration Glycopyrrolate 2 mg 01/12/20 22:00 01/24/20 21:37 Glycopyrrolate PO 2 mg BID CAR Administration Haloperidol Lactate 5 mg 12/25/19 10:00 01/22/20 11:35 Haldol IV 5 mg Q6H PRN Administration Unrespon. to mult. doses BZD's Hydrophilic Ointment 1 applic 01/17/20 15:26 Vaseline Lip Therapy TP DIRECT PRN Dry Lips Lorazepam 2 mg 12/25/19 10:00 01/25/20 00:20 Ativan IV 2 mg Q6H PRN Administration AGITATION Magnesium Hydroxide 30 ml 01/14/20 13:35 01/22/20 11:32 Milk Of Magnesia PO 30 ml QDAY PRN Administration Constip unreliev by MOM/or NPO Metoprolol Tartrate 5 mg 01/11/20 08:00 01/22/20 02:10 Metoprolol IV 5 mg Q6H PRN Administration SEE INSTRUCTIONS Metoprolol Tartrate 25 mg 01/11/20 13:00 01/25/20 06:16 Metoprolol PO 25 mg Q6H CAR Administration Morphine Sulfate 2 mg 01/06/20 15:41 01/24/20 22:40 Morphine IV 2 mg Q4H PRN Administration Pain, Moderate (4-6) Nitroglycerin 0.4 mg 01/19/20 21:09 01/20/20 03:03 Nitrostat SL 0.4 mg .Q5MIN PRN Administration Chest Pain Nitroglycerin 0.4 mg 01/21/20 06:00 01/25/20 06:15 Nitro Dur TD 0.4 mg QDAY@0600 CAR Administration Ondansetron HCl 4 mg 01/05/20 14:37 01/24/20 10:53 Zofran IV 4 mg Q8H PRN Administration Nausea And Vomiting Polyethylene Glycol 17 gm 12/04/19 22:00 01/24/20 21:36 Miralax 3350 PO 17 gm QHS CAR Administration Quetiapine Fumarate 300 mg 01/13/20 22:00 01/24/20 21:37 Seroquel PO 300 mg BID CAR Administration Scopolamine 1 each 01/07/20 20:00 01/07/20 21:08 Transderm-Scop TD 1 each Q72HR CAR Administration Simple Syrup 15 ml 01/09/20 12:01 Simple Syrup FEEDTUBE PRN PRN Hypoglycemia Simple Syrup 30 ml 01/09/20 12:01 Simple Syrup FEEDTUBE PRN PRN Hypoglycemia Sodium Bicarbonate 325 mg 01/09/20 12:01 Sodium Bicarbonate FEEDTUBE PRN PRN For Clogged Feeding Tube Sodium Chloride 10 ml 11/24/19 10:00 01/24/20 21:37 Sodium Chloride Flush Syringe 10 Ml IV 10 ml BID CAR Administration Tamsulosin HCl 0.8 mg 12/20/19 22:00 01/24/20 21:37 Flomax PO 0.8 mg QHS CAR Administration Nutrition/Malnutrition Assess - Dietary Evaluation Nutrition/Malnutrition Findings: Nutrition Notes Start: 11/24/19 12:22 Freq: Status: Active Protocol: Document 01/22/20 11:28 HEATHER (Rec: 01/22/20 11:43 HEATHER [id number]) Co-Sign 01/22/20 11:28 LP Nutrition Notes Initial or Follow up Reassessment Current Diagnosis Coronary Artery Disease,Heart Failure,Respiratory Failure, Stroke,Hyperlipidemia Other Pertinent Diagnosis Partial SBO, pneu Current Diet NPO Labs/Tests No new labs Pertinent Medications Lasix (not given) Height 6 ft 2 in Weight 116 kg [place] Body Weight (kg) 86.36 BMI 32.8 Weight Status Overweight Subjective/Other Information F/u POC. Respiratory therapist visited today. Pt alert but remains on mechanical ventilation through trach. Noted emesis from RN note. Per RN, pt has gag reflex when he needs more suctioning. TF is being tolerated. RN okay with restarting TF at 70ml/hr. 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 Yes Is Patient Ambulatory and/or Out of Bed No REE-([place]-confined to bed) 2434.356 Kcal/Kg value to use for calculation 16 Approximate Energy Requirements Using 1856 kcal/Kg Calculation Used for Recommendations Kcal/kg Additional Notes Protein needs are up to 162g ( 2g/kg IBW) Fluid needs are 1.5L [ End ] Nutrition Intervention Change Diet Order: Continue TF Nutrition Support: Vital HP at 70ml/hr (goal rate ) Flush 50ml q4h or per MD Kcal 1,680 Protein (gm) 105 Fluid (mL) 1,409 Goal #1 Meet at least 75% of pt's energy and protein needs Anticipated Discharge Needs: unable to determine Follow-Up By: 01/26/20 Additional Comments F/u stable TF and wt
[2020-01-25] MEDS: GLYCOPYRROLATE 2 MG TAB PO SCH ×2 (11:02→21:05)
[2020-01-25] MEDS: AMIODARONE 200 MG TAB PO SCH (11:02)
[2020-01-25] MEDS: QUEtiapine 100 MG TAB PO SCH ×2 (11:02→21:06)
[2020-01-25] MEDS: FAMOTIDINE 20 MG TAB PO SCH ×2 (11:02→21:06)
[2020-01-25] MEDS: APIXABAN 5 MG TAB PO SCH ×2 (11:03→21:06)
[2020-01-25] MEDS: CLOPIDOGREL 75 MG TAB PO SCH (11:03)
--- NOTE | 2020-01-25 12:00 | Progress Note ---
Assessment and Plan Chest pain, resolved LHC done 01/22/20 widely patent previous LAD stent. We found mild nonobstructive atherosclerosis of the mid right coronary artery. Otherwise the rest of the coronary system was without significant atherosclerosis. LVEF 40 to 45%. There was some hypokinesis of the basal inferior wall suggestive of previous or recent infarct. ECG done 01/19/20 shows sinus rhythm with low voltage QRS and subtle ST segment elevations in the inferolateral leads that suggested possible concern for an acute injury at that time. Atrial fibrillation, paroxysmal on amiodarone and metoprolol currently in sinus rhythm Ischemic Cardiomyopathy re-echo this presentation reports an LVEF 40-45%. echo 08/2018: decreased LVEF 20-25%. Hx of CAD LHC 12/2018: mild in-stent restenosis. No significant residual disease. Multifocal pneumonia negative COVID-19 test x 3 Chronic Respiratory failure s/p trach History of COPD Acute PE/DVT -on Eliquis Anemia Partial SBO vs ileus Recommend: Continue guideline directed medical therapy for coronary artery disease and paroxysmal atrial fibrillation. Subjective Date of service: 01/25/20 Principal diagnosis: Ac hypoxemic resp failure; Pneumonia; PUI COVID-19; CHF; COPD; HTN Interval history: No cardiac complaints. Objective Vital Signs Temp Pulse Pulse Resp BP Pulse Ox Pulse Ox 01/25/20 11:00 95 H 26 H 142/89 95 01/25/20 10:00 96 H 22 139/84 94 01/25/20 09:36 96 01/25/20 09:00 122 H 25 H 123/89 99 01/25/20 08:10 93 H 123/89 96 01/25/20 08:00 91 H 124 H 24 123/89 99 99 01/25/20 07:00 93 H 23 122/79 99 01/25/20 06:43 98.3 F 01/25/20 06:16 95 H 106/74 01/25/20 06:15 94 H 106/74 01/25/20 06:00 93 H 12 106/74 100 01/25/20 05:00 90 24 116/73 99 01/25/20 04:00 98.7 F 87 87 17 116/71 99 01/25/20 03:43 85 109/67 99 01/25/20 03:00 113 H 22 109/67 99 01/25/20 02:00 90 21 122/75 98 01/25/20 01:19 89 122/80 01/25/20 01:00 89 22 122/80 96 01/25/20 00:01 99 H 25 H 137/83 98 01/25/20 00:00 98.7 F 97 H 90 22 98 01/24/20 23:05 98 H 127/74 97 01/24/20 23:01 96 H 29 H 127/74 97 01/24/20 22:19 94 H 28 H 124/62 97 01/24/20 22:01 93 H 18 100/63 96 01/24/20 21:44 84 15 100/63 01/24/20 21:00 84 23 100/63 91 01/24/20 20:42 96 H 128/72 01/24/20 20:37 104 H 114/79 91 01/24/20 20:00 98.1 F 108 H 92 H 23 114/79 92 01/24/20 19:00 105 H 21 114/60 94 01/24/20 18:00 125 H 25 H 112/83 95 01/24/20 17:01 98 H 21 112/73 100 01/24/20 16:01 105 H 22 110/72 98 01/24/20 16:00 97.9 F 106 H 20 112/73 94 94 01/24/20 15:00 120 H 19 120/62 97 01/24/20 14:34 107 H 126/62 01/24/20 14:00 108 H 18 126/62 90 01/24/20 13:00 120 H 20 126/69 94 01/24/20 12:01 92 H 25 H 125/73 97 01/24/20 12:00 98.2 F - Physical Examination General: Other (awake, s/p trach) HEENT: Positive: PERRL Cardiac: Positive: Reg Rate and Rhythm - Labs and Meds CBC 01/25/20 Range/Units 04:25 WBC 8.9 (4.5-11.0) K/mm3 RBC 3.50 L (3.65-5.03) M/mm3 Hgb 8.7 L (11.8-15.2) gm/dl Hct 27.9 L (35.5-45.6) % Plt Count 277 (140-440) K/mm3 Lymph # (Auto) 2.2 (1.2-5.4) K/mm3 [place] # (Auto) 0.8 (0.0-0.8) K/mm3 Eos # (Auto) 0.3 (0.0-0.4) K/mm3 Baso # (Auto) 0.1 (0.0-0.1) K/mm3 Comprehensive Metabolic Panel 01/25/20 Range/Units 04:25 Sodium 142 (137-145) mmol/L Potassium 4.2 (3.6-5.0) mmol/L Chloride 99.5 (98-107) mmol/L Carbon Dioxide 30 (22-30) mmol/L BUN 30 H (9-20) mg/dL Creatinine 0.8 (0.8-1.3) mg/dL Glucose 134 H (75-100) mg/dL Calcium 9.3 (8.4-10.2) mg/dL - Allied health notes Allied health notes reviewed: RT
[2020-01-25] MEDS: DOCUSATE SODIUM 100 MG/10 ML ORAL LIQD FEEDTUBE SCH ×2 (12:47→21:05)
--- NOTE | 2020-01-25 12:59 | Progress Note ---
Assessment and Plan Acute hypoxemic respiratory failure Bilateral pneumonia, community acquired. Acute LLL branch P.E. Acute DVT Person under investigation for COVID-19 infection. Acute congestive heart failure exacerbation. History of cerebrovascular accident. Acute chronic obstructive pulmonary disease exacerbation. Hypertension and hypertensive urgency at presentation. History of arthritis. Leukocytosis. Lactic acidosis. Oropharyngeal dysphagia - continue diuresis - repeat ABG at 9pm to assess ventilation +/- keep on RTC t-piece - follow electrolytes and correct as necessary - continue Robinul & Scopolamine for secretion control - continue full anticoagulation with Apixaban - continue care as below otherwise; - continue daily SAT's and SBT assessment as tolerated - continue seroquel for anxiolysis / delirium - COVID isolation per facility protocol - prn diuresis while following electrolytes / I's & O's - continue to wean oxygen for O2 sat's > 92% - continue bronchodilators with routine trach care and pulmonary hygiene per RT - VAP bundle addressed (Aspiration precautions, HOB >40) - continue to wean per pulmonary driven protocols - sedation target is RASS 0 to -1 - continue prn analgesia per CPOT score - follow clinically re: fever curves / trend WBC - Avoid delirium (no benzodiazepines if they can be avoided) - Maintain sleep-wake cycle - enteral nutrition at goal rate as tolerated - continue accucheck's with glycemic control per SSI for target blood glucose goal of 140-180 mg/dL while critically ill; Avoid hypoglycemia - for VTE he is on IV Heparin - continue stress ulcer prophylaxis with Famotidine - continue mobility protocols for pressure ulcer prophylaxis - continue fall precautions - continue wound care management per RN / WCT - Supportive transfusions to keep HgB>7g/dL - CXR's and ABG's prn - Continue to monitor neurologic function - Continue chronic home medications - Continue all supportive care ........ re-evaluate in am & prn CONDITION: CRITICAL PROGNOSIS: GUARDED CODE STATUS: FULL CODE The high probability of a clinically significant, sudden or life threatening deterioration of the [Respiratory, cardiovascular & neurological] system(s) required my full and direct attention, intervention and personal management. The aggregate critical care time was [34] minutes without overlap. Time includes spent on [x] Data Review and interpretation [x] Patient assessment and monitoring of vital signs [x] Documentation [x] Medication orders and management Subjective Date of service: 01/25/20 Principal diagnosis: Ac hypoxemic resp failure; Pneumonia; PUI COVID-19; CHF; COPD; HTN Interval history: Patient is seen today for: Acute hypoxemic respiratory failure; Adan. Pneumonia (CAP); PUI COVID-19 infection; AE-CHF; AE-COPD; H/O CVA; HTN Seen and examined at bedside; 24 hour events reviewed; nursing and respiratory care staff consulted; no adverse overnight events reported to me; resting peacefully in bed; remains on MVS but currently on t-piece trial; secretions better; denies N/V/F/C Objective Vital Signs - 12hr 01/25/20 01/25/20 01/25/20 01:00 01:19 02:00 Temperature Pulse Rate 89 89 90 Pulse Rate [ From Monitor] Respiratory 22 21 Rate Blood Pressure 122/80 122/80 122/75 O2 Sat by Pulse 96 98 Oximetry O2 Sat by Pulse Oximetry [ Assessment] 01/25/20 01/25/20 01/25/20 03:00 03:43 04:00 Temperature 98.7 F Pulse Rate 113 H 85 87 Pulse Rate [ 87 From Monitor] Respiratory 22 17 Rate Blood Pressure 109/67 109/67 116/71 O2 Sat by Pulse 99 99 99 Oximetry O2 Sat by Pulse Oximetry [ Assessment] 01/25/20 01/25/20 01/25/20 05:00 06:00 06:15 Temperature Pulse Rate 90 93 H 94 H Pulse Rate [ From Monitor] Respiratory 24 12 Rate Blood Pressure 116/73 106/74 106/74 O2 Sat by Pulse 99 100 Oximetry O2 Sat by Pulse Oximetry [ Assessment] 01/25/20 01/25/20 01/25/20 06:16 06:43 07:00 Temperature 98.3 F Pulse Rate 95 H 93 H Pulse Rate [ From Monitor] Respiratory 23 Rate Blood Pressure 106/74 122/79 O2 Sat by Pulse 99 Oximetry O2 Sat by Pulse Oximetry [ Assessment] 01/25/20 01/25/20 01/25/20 08:00 08:10 09:00 Temperature Pulse Rate 91 H 93 H 122 H Pulse Rate [ 124 H From Monitor] Respiratory 24 25 H Rate Blood Pressure 123/89 123/89 123/89 O2 Sat by Pulse 99 96 99 Oximetry O2 Sat by Pulse 99 Oximetry [ Assessment] 01/25/20 01/25/20 01/25/20 09:36 10:00 11:00 Temperature Pulse Rate 96 H 95 H Pulse Rate [ From Monitor] Respiratory 22 26 H Rate Blood Pressure 139/84 142/89 O2 Sat by Pulse 96 94 95 Oximetry O2 Sat by Pulse Oximetry [ Assessment] 01/25/20 12:00 Temperature 97.4 F L Pulse Rate 94 H Pulse Rate [ 98 H From Monitor] Respiratory 28 H Rate Blood Pressure 140/84 O2 Sat by Pulse 94 Oximetry O2 Sat by Pulse Oximetry [ Assessment] Constitutional: no acute distress, other (elelelderly and obese male, normocephalic with mildly increased respiratory effort at rest) Eyes: non-icteric ENT: oropharynx moist, other (trach to MVS, mooderate tracheal secretions) Neck: supple, no JVD Effort: mildly labored Ascultation: Bilateral: diminished breath sounds, rhonchi Percussion: Bilateral: not dull Cardiovascular: irregular rhythm, other (S1,S2) Gastrointestinal: normoactive bowel sounds, soft, non-tender, non-distended (protuberant), other (protuberant; PEG in place) Integumentary: normal Extremities: no cyanosis, pulses normal, no ischemia or petechiae, edema (bilateral upper ) Neurologic: non-focal exam (moves extremities), pupils equal and round, CN II- XII normal, motor strength normal and (moves all extremities) Psychiatric: mood appropriate, affect normal CBC and BMP: 01/26/20 03:20 01/25/20 04:25 ABG, PT/INR, D-dimer: ABG ABG pH 7.449 pH Units (7.350-7.450) 01/13/20 20:40 POC ABG pCO2 45.6 mmHg (32.0-48.0) 01/12/20 13:58 ABG pCO2 46.9 mm Hg 01/13/20 20:40 POC ABG pO2 76.6 mmHg (83-108) L 01/12/20 13:58 ABG pO2 65.3 mm Hg (80.0-90.0) L 01/13/20 20:40 POC ABG HCO3 31.2 01/12/20 13:58 ABG O2 Saturation 93.5 % (95.0-99.0) L 01/13/20 20:40 PT/INR, D-dimer PT 16.9 Sec. (12.2-14.9) H 01/22/20 09:58 INR 1.34 (0.87-1.13) H 01/22/20 09:58 Abnormal lab findings: Abnormal Labs 11/24/19 11/24/19 11/24/19 02:53 02:53 03:45 WBC 14.3 H RBC Hgb Hct MCHC RDW 17.2 H MCV MCH Lymph % (Auto) [place] % (Auto) [place] # Eos # Lymph # (Auto) [place] # (Auto) Eos # (Auto) Seg Neutrophils % Seg Neuts % (Manual) Baso # (Auto) Lymphocytes % (Manual) Monocytes % (Manual) Eosinophils % (Manual) Basophils % (Manual) Seg Neutrophils # Seg Neutrophils # Man 8.3 H Lymphocytes # (Manual) Monocytes # (Manual) 0.9 H Eosinophils # (Manual) Nucleated RBC % Basophils # (Manual) PT INR APTT Heparin Anti-Xa Level ABG pH 7.313 L POC ABG pO2 ABG pO2 102.8 H ABG HCO3 ABG O2 Saturation ABG Base Excess -2.9 L POC ABG pCO2 ABG Hemoglobin ABG Oxyhemoglobin ABG Glucose Oxyhemoglobin 93.9 L Sodium Potassium Chloride Carbon Dioxide BUN Creatinine Glucose 195 H POC Glucose Lactic Acid Calcium Phosphorus Magnesium AST ALT Lactate Dehydrogenase CK-MB (CK-2) 4.3 H C-Reactive Protein NT-Pro-B Natriuret Pep 1181 H Total Protein Albumin Arterial Blood Glucose Urine WBC (Auto) 11/24/19 11/24/19 11/24/19 04:53 04:53 10:37 WBC RBC Hgb Hct MCHC RDW MCV MCH Lymph % (Auto) [place] % (Auto) [place] # Eos # Lymph # (Auto) [place] # (Auto) Eos # (Auto) Seg Neutrophils % Seg Neuts % (Manual) Baso # (Auto) Lymphocytes % (Manual) Monocytes % (Manual) Eosinophils % (Manual) Basophils % (Manual) Seg Neutrophils # Seg Neutrophils # Man Lymphocytes # (Manual) Monocytes # (Manual) Eosinophils # (Manual) Nucleated RBC % Basophils # (Manual) PT INR APTT Heparin Anti-Xa Level ABG pH POC ABG pO2 ABG pO2 ABG HCO3 ABG O2 Saturation ABG Base Excess POC ABG pCO2 ABG Hemoglobin ABG Oxyhemoglobin ABG Glucose Oxyhemoglobin Sodium Potassium Chloride Carbon Dioxide BUN Creatinine Glucose 162 H POC Glucose Lactic Acid 2.40 H* 2.50 H* Calcium Phosphorus Magnesium AST ALT Lactate Dehydrogenase 240 H CK-MB (CK-2) C-Reactive Protein NT-Pro-B Natriuret Pep Total Protein Albumin Arterial Blood Glucose Urine WBC (Auto) 11/24/19 11/24/19 11/24/19 12:21 14:50 19:54 WBC RBC Hgb Hct MCHC RDW MCV MCH Lymph % (Auto) [place] % (Auto) [place] # Eos # Lymph # (Auto) [place] # (Auto) Eos # (Auto) Seg Neutrophils % Seg Neuts % (Manual) Baso # (Auto) Lymphocytes % (Manual) Monocytes % (Manual) Eosinophils % (Manual) Basophils % (Manual) Seg Neutrophils # Seg Neutrophils # Man Lymphocytes # (Manual) Monocytes # (Manual) Eosinophils # (Manual) Nucleated RBC % Basophils # (Manual) PT INR APTT Heparin Anti-Xa Level ABG pH POC ABG pO2 ABG pO2 ABG HCO3 ABG O2 Saturation ABG Base Excess POC ABG pCO2 ABG Hemoglobin ABG Oxyhemoglobin ABG Glucose Oxyhemoglobin Sodium Potassium Chloride Carbon Dioxide BUN Creatinine Glucose POC Glucose 145 H 143 H 124 H Lactic Acid Calcium Phosphorus Magnesium AST ALT Lactate Dehydrogenase CK-MB (CK-2) C-Reactive Protein NT-Pro-B Natriuret Pep Total Protein Albumin Arterial Blood Glucose Urine WBC (Auto) 11/25/19 11/25/19 11/25/19 00:18 03:18 05:11 WBC 13.7 H RBC Hgb Hct MCHC RDW 17.1 H MCV MCH Lymph % (Auto) 10.8 L [place] % (Auto) 8.7 H [place] # 1.2 H Eos # Lymph # (Auto) [place] # (Auto) Eos # (Auto) Seg Neutrophils % 80.2 H Seg Neuts % (Manual) Baso # (Auto) Lymphocytes % (Manual) Monocytes % (Manual) Eosinophils % (Manual) Basophils % (Manual) Seg Neutrophils # 11.0 H Seg Neutrophils # Man Lymphocytes # (Manual) Monocytes # (Manual) Eosinophils # (Manual) Nucleated RBC % Basophils # (Manual) PT INR APTT Heparin Anti-Xa Level ABG pH 7.333 L POC ABG pO2 ABG pO2 61.2 L ABG HCO3 ABG O2 Saturation 90.2 L ABG Base Excess POC ABG pCO2 ABG Hemoglobin 13.7 L ABG Oxyhemoglobin ABG Glucose Oxyhemoglobin 88.2 L Sodium Potassium Chloride Carbon Dioxide BUN Creatinine Glucose POC Glucose 109 H Lactic Acid Calcium Phosphorus Magnesium AST ALT Lactate Dehydrogenase CK-MB (CK-2) C-Reactive Protein NT-Pro-B Natriuret Pep Total Protein Albumin Arterial Blood Glucose Urine WBC (Auto) 11/25/19 11/25/19 11/26/19 05:11 11:40 03:12 WBC RBC Hgb Hct MCHC RDW MCV MCH Lymph % (Auto) [place] % (Auto) [place] # Eos # Lymph # (Auto) [place] # (Auto) Eos # (Auto) Seg Neutrophils % Seg Neuts % (Manual) Baso # (Auto) Lymphocytes % (Manual) Monocytes % (Manual) Eosinophils % (Manual) Basophils % (Manual) Seg Neutrophils # Seg Neutrophils # Man Lymphocytes # (Manual) Monocytes # (Manual) Eosinophils # (Manual) Nucleated RBC % Basophils # (Manual) PT INR APTT Heparin Anti-Xa Level ABG pH POC ABG pO2 ABG pO2 155.1 H ABG HCO3 27.8 H ABG O2 Saturation ABG Base Excess POC ABG pCO2 ABG Hemoglobin 12.2 L ABG Oxyhemoglobin ABG Glucose Oxyhemoglobin Sodium Potassium Chloride Carbon Dioxide BUN 23 H Creatinine Glucose 110 H POC Glucose 108 H Lactic Acid Calcium Phosphorus Magnesium AST ALT Lactate Dehydrogenase CK-MB (CK-2) C-Reactive Protein NT-Pro-B Natriuret Pep Total Protein Albumin Arterial Blood Glucose Urine WBC (Auto) 11/26/19 11/26/19 11/26/19 06:17 10:43 10:43 WBC 11.4 H RBC Hgb Hct MCHC RDW 17.1 H MCV MCH Lymph % (Auto) [place] % (Auto) [place] # Eos # Lymph # (Auto) [place] # (Auto) Eos # (Auto) Seg Neutrophils % Seg Neuts % (Manual) Baso # (Auto) Lymphocytes % (Manual) Monocytes % (Manual) Eosinophils % (Manual) Basophils % (Manual) Seg Neutrophils # Seg Neutrophils # Man Lymphocytes # (Manual) Monocytes # (Manual) Eosinophils # (Manual) Nucleated RBC % Basophils # (Manual) PT INR APTT Heparin Anti-Xa Level ABG pH POC ABG pO2 ABG pO2 ABG HCO3 ABG O2 Saturation ABG Base Excess POC ABG pCO2 ABG Hemoglobin ABG Oxyhemoglobin ABG Glucose Oxyhemoglobin Sodium Potassium Chloride Carbon Dioxide BUN 29 H Creatinine Glucose POC Glucose 107 H Lactic Acid Calcium Phosphorus Magnesium AST ALT Lactate Dehydrogenase CK-MB (CK-2) C-Reactive Protein NT-Pro-B Natriuret Pep Total Protein Albumin Arterial Blood Glucose Urine WBC (Auto) 11/26/19 11/27/19 11/27/19 17:11 01:53 04:11 WBC RBC Hgb Hct MCHC RDW MCV MCH Lymph % (Auto) [place] % (Auto) [place] # Eos # Lymph # (Auto) [place] # (Auto) Eos # (Auto) Seg Neutrophils % Seg Neuts % (Manual) Baso # (Auto) Lymphocytes % (Manual) Monocytes % (Manual) Eosinophils % (Manual) Basophils % (Manual) Seg Neutrophils # Seg Neutrophils # Man Lymphocytes # (Manual) Monocytes # (Manual) Eosinophils # (Manual) Nucleated RBC % Basophils # (Manual) PT INR APTT Heparin Anti-Xa Level ABG pH POC ABG pO2 ABG pO2 ABG HCO3 29.2 H ABG O2 Saturation ABG Base Excess 3.4 H POC ABG pCO2 ABG Hemoglobin 13.3 L ABG Oxyhemoglobin ABG Glucose Oxyhemoglobin 94.5 L Sodium Potassium Chloride Carbon Dioxide BUN Creatinine Glucose POC Glucose 113 H 108 H Lactic Acid Calcium Phosphorus Magnesium AST ALT Lactate Dehydrogenase CK-MB (CK-2) C-Reactive Protein NT-Pro-B Natriuret Pep Total Protein Albumin Arterial Blood Glucose Urine WBC (Auto) 11/27/19 11/28/19 11/28/19 05:27 05:00 05:25 WBC RBC Hgb Hct MCHC RDW MCV MCH Lymph % (Auto) [place] % (Auto) [place] # Eos # Lymph # (Auto) [place] # (Auto) Eos # (Auto) Seg Neutrophils % Seg Neuts % (Manual) Baso # (Auto) Lymphocytes % (Manual) Monocytes % (Manual) Eosinophils % (Manual) Basophils % (Manual) Seg Neutrophils # Seg Neutrophils # Man Lymphocytes # (Manual) Monocytes # (Manual) Eosinophils # (Manual) Nucleated RBC % Basophils # (Manual) PT INR APTT Heparin Anti-Xa Level ABG pH POC ABG pO2 68.1 L ABG pO2 ABG HCO3 ABG O2 Saturation ABG Base Excess POC ABG pCO2 ABG Hemoglobin ABG Oxyhemoglobin 91.2 L ABG Glucose Oxyhemoglobin Sodium Potassium Chloride Carbon Dioxide BUN Creatinine Glucose POC Glucose 111 H 110 H Lactic Acid Calcium Phosphorus Magnesium AST ALT Lactate Dehydrogenase CK-MB (CK-2) C-Reactive Protein NT-Pro-B Natriuret Pep Total Protein Albumin Arterial Blood Glucose Urine WBC (Auto) 11/28/19 11/28/19 11/28/19 12:08 13:47 13:47 WBC 11.3 H RBC Hgb Hct MCHC RDW 16.1 H MCV MCH Lymph % (Auto) [place] % (Auto) 9.9 H [place] # 1.1 H Eos # Lymph # (Auto) [place] # (Auto) Eos # (Auto) Seg Neutrophils % 71.4 H Seg Neuts % (Manual) Baso # (Auto) Lymphocytes % (Manual) Monocytes % (Manual) Eosinophils % (Manual) Basophils % (Manual) Seg Neutrophils # 8.1 H Seg Neutrophils # Man Lymphocytes # (Manual) Monocytes # (Manual) Eosinophils # (Manual) Nucleated RBC % Basophils # (Manual) PT INR APTT Heparin Anti-Xa Level ABG pH POC ABG pO2 ABG pO2 ABG HCO3 ABG O2 Saturation ABG Base Excess POC ABG pCO2 ABG Hemoglobin ABG Oxyhemoglobin ABG Glucose Oxyhemoglobin Sodium Potassium Chloride Carbon Dioxide BUN 23 H Creatinine Glucose 123 H POC Glucose 112 H Lactic Acid Calcium Phosphorus Magnesium AST ALT Lactate Dehydrogenase CK-MB (CK-2) C-Reactive Protein NT-Pro-B Natriuret Pep Total Protein Albumin 3.7 L Arterial Blood Glucose Urine WBC (Auto) 11/28/19 11/29/19 11/29/19 17:26 03:55 17:04 WBC RBC Hgb Hct MCHC RDW MCV MCH Lymph % (Auto) [place] % (Auto) [place] # Eos # Lymph # (Auto) [place] # (Auto) Eos # (Auto) Seg Neutrophils % Seg Neuts % (Manual) Baso # (Auto) Lymphocytes % (Manual) Monocytes % (Manual) Eosinophils % (Manual) Basophils % (Manual) Seg Neutrophils # Seg Neutrophils # Man Lymphocytes # (Manual) Monocytes # (Manual) Eosinophils # (Manual) Nucleated RBC % Basophils # (Manual) PT INR APTT Heparin Anti-Xa Level ABG pH POC ABG pO2 ABG pO2 65.7 L ABG HCO3 28.3 H ABG O2 Saturation 93.9 L ABG Base Excess 3.6 H POC ABG pCO2 ABG Hemoglobin 13.3 L ABG Oxyhemoglobin ABG Glucose Oxyhemoglobin 91.5 L Sodium Potassium Chloride Carbon Dioxide BUN Creatinine Glucose POC Glucose 123 H 119 H Lactic Acid Calcium Phosphorus Magnesium AST ALT Lactate Dehydrogenase CK-MB (CK-2) C-Reactive Protein NT-Pro-B Natriuret Pep Total Protein Albumin Arterial Blood Glucose Urine WBC (Auto) 11/30/19 11/30/19 11/30/19 04:17 04:17 04:56 WBC 13.4 H RBC Hgb Hct MCHC RDW 15.6 H MCV MCH Lymph % (Auto) [place] % (Auto) [place] # Eos # Lymph # (Auto) [place] # (Auto) Eos # (Auto) Seg Neutrophils % Seg Neuts % (Manual) Baso # (Auto) Lymphocytes % (Manual) Monocytes % (Manual) Eosinophils % (Manual) Basophils % (Manual) Seg Neutrophils # Seg Neutrophils # Man Lymphocytes # (Manual) Monocytes # (Manual) Eosinophils # (Manual) Nucleated RBC % Basophils # (Manual) PT INR APTT Heparin Anti-Xa Level ABG pH POC ABG pO2 ABG pO2 56.3 L ABG HCO3 29.3 H ABG O2 Saturation 91.5 L ABG Base Excess 4.7 H POC ABG pCO2 ABG Hemoglobin 12.1 L ABG Oxyhemoglobin ABG Glucose Oxyhemoglobin 89.2 L Sodium 147 H Potassium Chloride Carbon Dioxide BUN 30 H Creatinine Glucose 124 H POC Glucose Lactic Acid Calcium Phosphorus Magnesium AST ALT Lactate Dehydrogenase CK-MB (CK-2) C-Reactive Protein NT-Pro-B Natriuret Pep Total Protein Albumin 3.8 L Arterial Blood Glucose Urine WBC (Auto) 11/30/19 11/30/19 11/30/19 05:51 11:54 18:17 WBC RBC Hgb Hct MCHC RDW MCV MCH Lymph % (Auto) [place] % (Auto) [place] # Eos # Lymph # (Auto) [place] # (Auto) Eos # (Auto) Seg Neutrophils % Seg Neuts % (Manual) Baso # (Auto) Lymphocytes % (Manual) Monocytes % (Manual) Eosinophils % (Manual) Basophils % (Manual) Seg Neutrophils # Seg Neutrophils # Man Lymphocytes # (Manual) Monocytes # (Manual) Eosinophils # (Manual) Nucleated RBC % Basophils # (Manual) PT INR APTT Heparin Anti-Xa Level ABG pH POC ABG pO2 ABG pO2 ABG HCO3 ABG O2 Saturation ABG Base Excess POC ABG pCO2 ABG Hemoglobin ABG Oxyhemoglobin ABG Glucose Oxyhemoglobin Sodium Potassium Chloride Carbon Dioxide BUN Creatinine Glucose POC Glucose 127 H 115 H 143 H Lactic Acid Calcium Phosphorus Magnesium AST ALT Lactate Dehydrogenase CK-MB (CK-2) C-Reactive Protein NT-Pro-B Natriuret Pep Total Protein Albumin Arterial Blood Glucose Urine WBC (Auto) 12/01/19 12/01/19 12/01/19 01:18 05:22 12:16 WBC RBC Hgb Hct MCHC RDW MCV MCH Lymph % (Auto) [place] % (Auto) [place] # Eos # Lymph # (Auto) [place] # (Auto) Eos # (Auto) Seg Neutrophils % Seg Neuts % (Manual) Baso # (Auto) Lymphocytes % (Manual) Monocytes % (Manual) Eosinophils % (Manual) Basophils % (Manual) Seg Neutrophils # Seg Neutrophils # Man Lymphocytes # (Manual) Monocytes # (Manual) Eosinophils # (Manual) Nucleated RBC % Basophils # (Manual) PT INR APTT Heparin Anti-Xa Level ABG pH POC ABG pO2 ABG pO2 ABG HCO3 ABG O2 Saturation ABG Base Excess POC ABG pCO2 ABG Hemoglobin ABG Oxyhemoglobin ABG Glucose Oxyhemoglobin Sodium Potassium 3.5 L Chloride 107.8 H Carbon Dioxide BUN 37 H Creatinine Glucose 157 H POC Glucose 118 H 148 H Lactic Acid Calcium 8.2 L D Phosphorus Magnesium AST 48 H ALT 60 H Lactate Dehydrogenase 194 H CK-MB (CK-2) C-Reactive Protein 8.50 H NT-Pro-B Natriuret Pep Total Protein 5.5 L Albumin 2.8 L Arterial Blood Glucose Urine WBC (Auto) 12/01/19 12/02/19 12/02/19 18:04 00:05 05:16 WBC 11.4 H RBC Hgb Hct MCHC RDW 15.9 H MCV MCH Lymph % (Auto) [place] % (Auto) 9.9 H [place] # 1.1 H Eos # Lymph # (Auto) [place] # (Auto) Eos # (Auto) Seg Neutrophils % 70.3 H Seg Neuts % (Manual) Baso # (Auto) Lymphocytes % (Manual) Monocytes % (Manual) Eosinophils % (Manual) Basophils % (Manual) Seg Neutrophils # 8.0 H Seg Neutrophils # Man Lymphocytes # (Manual) Monocytes # (Manual) Eosinophils # (Manual) Nucleated RBC % Basophils # (Manual) PT INR APTT Heparin Anti-Xa Level ABG pH POC ABG pO2 ABG pO2 ABG HCO3 ABG O2 Saturation ABG Base Excess POC ABG pCO2 ABG Hemoglobin ABG Oxyhemoglobin ABG Glucose Oxyhemoglobin Sodium Potassium Chloride Carbon Dioxide BUN Creatinine Glucose POC Glucose 143 H 107 H Lactic Acid Calcium Phosphorus Magnesium AST ALT Lactate Dehydrogenase CK-MB (CK-2) C-Reactive Protein NT-Pro-B Natriuret Pep Total Protein Albumin Arterial Blood Glucose Urine WBC (Auto) 12/02/19 12/02/19 12/02/19 05:16 06:03 11:52 WBC RBC Hgb Hct MCHC RDW MCV MCH Lymph % (Auto) [place] % (Auto) [place] # Eos # Lymph # (Auto) [place] # (Auto) Eos # (Auto) Seg Neutrophils % Seg Neuts % (Manual) Baso # (Auto) Lymphocytes % (Manual) Monocytes % (Manual) Eosinophils % (Manual) Basophils % (Manual) Seg Neutrophils # Seg Neutrophils # Man Lymphocytes # (Manual) Monocytes # (Manual) Eosinophils # (Manual) Nucleated RBC % Basophils # (Manual) PT INR APTT Heparin Anti-Xa Level ABG pH POC ABG pO2 ABG pO2 ABG HCO3 ABG O2 Saturation ABG Base Excess POC ABG pCO2 ABG Hemoglobin ABG Oxyhemoglobin ABG Glucose Oxyhemoglobin Sodium 146 H Potassium Chloride Carbon Dioxide BUN 28 H Creatinine Glucose 123 H POC Glucose 110 H 152 H Lactic Acid Calcium Phosphorus Magnesium AST ALT Lactate Dehydrogenase CK-MB (CK-2) C-Reactive Protein NT-Pro-B Natriuret Pep Total Protein Albumin Arterial Blood Glucose Urine WBC (Auto) 12/02/19 12/02/19 12/02/19 12:58 17:58 23:36 WBC RBC Hgb Hct MCHC RDW MCV MCH Lymph % (Auto) [place] % (Auto) [place] # Eos # Lymph # (Auto) [place] # (Auto) Eos # (Auto) Seg Neutrophils % Seg Neuts % (Manual) Baso # (Auto) Lymphocytes % (Manual) Monocytes % (Manual) Eosinophils % (Manual) Basophils % (Manual) Seg Neutrophils # Seg Neutrophils # Man Lymphocytes # (Manual) Monocytes # (Manual) Eosinophils # (Manual) Nucleated RBC % Basophils # (Manual) PT INR APTT Heparin Anti-Xa Level ABG pH POC ABG pO2 78.1 L ABG pO2 ABG HCO3 ABG O2 Saturation ABG Base Excess POC ABG pCO2 ABG Hemoglobin ABG Oxyhemoglobin ABG Glucose Oxyhemoglobin Sodium Potassium Chloride Carbon Dioxide BUN Creatinine Glucose POC Glucose 120 H 123 H Lactic Acid Calcium Phosphorus Magnesium AST ALT Lactate Dehydrogenase CK-MB (CK-2) C-Reactive Protein NT-Pro-B Natriuret Pep Total Protein Albumin Arterial Blood Glucose Urine WBC (Auto) 12/03/19 12/03/19 12/03/19 06:03 06:14 11:46 WBC RBC Hgb Hct MCHC RDW MCV MCH Lymph % (Auto) [place] % (Auto) [place] # Eos # Lymph # (Auto) [place] # (Auto) Eos # (Auto) Seg Neutrophils % Seg Neuts % (Manual) Baso # (Auto) Lymphocytes % (Manual) Monocytes % (Manual) Eosinophils % (Manual) Basophils % (Manual) Seg Neutrophils # Seg Neutrophils # Man Lymphocytes # (Manual) Monocytes # (Manual) Eosinophils # (Manual) Nucleated RBC % Basophils # (Manual) PT INR APTT Heparin Anti-Xa Level ABG pH POC ABG pO2 ABG pO2 ABG HCO3 ABG O2 Saturation ABG Base Excess POC ABG pCO2 ABG Hemoglobin ABG Oxyhemoglobin ABG Glucose Oxyhemoglobin Sodium Potassium Chloride Carbon Dioxide BUN Creatinine Glucose POC Glucose 142 H 130 H Lactic Acid Calcium Phosphorus Magnesium AST ALT Lactate Dehydrogenase CK-MB (CK-2) C-Reactive Protein NT-Pro-B Natriuret Pep Total Protein Albumin Arterial Blood Glucose Urine WBC (Auto) 8.0 H 12/03/19 12/03/19 12/04/19 15:50 17:39 00:04 WBC RBC Hgb Hct MCHC RDW MCV MCH Lymph % (Auto) [place] % (Auto) [place] # Eos # Lymph # (Auto) [place] # (Auto) Eos # (Auto) Seg Neutrophils % Seg Neuts % (Manual) Baso # (Auto) Lymphocytes % (Manual) Monocytes % (Manual) Eosinophils % (Manual) Basophils % (Manual) Seg Neutrophils # Seg Neutrophils # Man Lymphocytes # (Manual) Monocytes # (Manual) Eosinophils # (Manual) Nucleated RBC % Basophils # (Manual) PT INR APTT Heparin Anti-Xa Level ABG pH POC ABG pO2 ABG pO2 ABG HCO3 ABG O2 Saturation ABG Base Excess POC ABG pCO2 ABG Hemoglobin ABG Oxyhemoglobin ABG Glucose Oxyhemoglobin Sodium Potassium Chloride Carbon Dioxide BUN Creatinine Glucose POC Glucose 146 H 133 H Lactic Acid Calcium Phosphorus 2.40 L Magnesium AST ALT Lactate Dehydrogenase CK-MB (CK-2) C-Reactive Protein NT-Pro-B Natriuret Pep Total Protein Albumin Arterial Blood Glucose Urine WBC (Auto) 12/04/19 12/04/19 12/04/19 03:58 03:58 05:22 WBC 12.5 H RBC Hgb 11.2 L Hct 35.2 L MCHC RDW 16.0 H MCV MCH Lymph % (Auto) [place] % (Auto) 9.6 H [place] # 1.2 H Eos # 0.5 H Lymph # (Auto) [place] # (Auto) Eos # (Auto) Seg Neutrophils % Seg Neuts % (Manual) Baso # (Auto) Lymphocytes % (Manual) Monocytes % (Manual) Eosinophils % (Manual) Basophils % (Manual) Seg Neutrophils # 8.6 H Seg Neutrophils # Man Lymphocytes # (Manual) Monocytes # (Manual) Eosinophils # (Manual) Nucleated RBC % Basophils # (Manual) PT INR APTT Heparin Anti-Xa Level ABG pH POC ABG pO2 ABG pO2 ABG HCO3 ABG O2 Saturation ABG Base Excess POC ABG pCO2 ABG Hemoglobin ABG Oxyhemoglobin ABG Glucose Oxyhemoglobin Sodium 146 H Potassium Chloride 108.6 H Carbon Dioxide BUN 30 H Creatinine 0.7 L Glucose 121 H POC Glucose 132 H Lactic Acid Calcium Phosphorus Magnesium AST ALT Lactate Dehydrogenase CK-MB (CK-2) C-Reactive Protein NT-Pro-B Natriuret Pep Total Protein Albumin Arterial Blood Glucose Urine WBC (Auto) 12/04/19 12/04/19 12/05/19 13:26 18:43 00:19 WBC RBC Hgb Hct MCHC RDW MCV MCH Lymph % (Auto) [place] % (Auto) [place] # Eos # Lymph # (Auto) [place] # (Auto) Eos # (Auto) Seg Neutrophils % Seg Neuts % (Manual) Baso # (Auto) Lymphocytes % (Manual) Monocytes % (Manual) Eosinophils % (Manual) Basophils % (Manual) Seg Neutrophils # Seg Neutrophils # Man Lymphocytes # (Manual) Monocytes # (Manual) Eosinophils # (Manual) Nucleated RBC % Basophils # (Manual) PT INR APTT Heparin Anti-Xa Level ABG pH POC ABG pO2 ABG pO2 ABG HCO3 ABG O2 Saturation ABG Base Excess POC ABG pCO2 ABG Hemoglobin ABG Oxyhemoglobin ABG Glucose Oxyhemoglobin Sodium Potassium Chloride Carbon Dioxide BUN Creatinine Glucose POC Glucose 185 H 156 H 150 H Lactic Acid Calcium Phosphorus Magnesium AST ALT Lactate Dehydrogenase CK-MB (CK-2) C-Reactive Protein NT-Pro-B Natriuret Pep Total Protein Albumin Arterial Blood Glucose Urine WBC (Auto) 12/05/19 12/05/19 12/05/19 03:37 03:37 05:14 WBC 16.3 H RBC Hgb 11.4 L Hct MCHC RDW 15.6 H MCV MCH Lymph % (Auto) 9.9 L [place] % (Auto) 9.7 H [place] # 1.6 H Eos # Lymph # (Auto) [place] # (Auto) Eos # (Auto) Seg Neutrophils % 78.0 H Seg Neuts % (Manual) Baso # (Auto) Lymphocytes % (Manual) Monocytes % (Manual) Eosinophils % (Manual) Basophils % (Manual) Seg Neutrophils # 12.7 H Seg Neutrophils # Man Lymphocytes # (Manual) Monocytes # (Manual) Eosinophils # (Manual) Nucleated RBC % Basophils # (Manual) PT INR APTT Heparin Anti-Xa Level ABG pH POC ABG pO2 ABG pO2 ABG HCO3 ABG O2 Saturation ABG Base Excess POC ABG pCO2 ABG Hemoglobin ABG Oxyhemoglobin ABG Glucose Oxyhemoglobin Sodium 146 H Potassium Chloride 107.2 H Carbon Dioxide BUN 27 H Creatinine 0.7 L Glucose 171 H POC Glucose 168 H Lactic Acid Calcium Phosphorus Magnesium AST ALT Lactate Dehydrogenase CK-MB (CK-2) C-Reactive Protein NT-Pro-B Natriuret Pep Total Protein Albumin Arterial Blood Glucose Urine WBC (Auto) 12/05/19 12/05/19 12/05/19 12:31 18:10 23:58 WBC RBC Hgb Hct MCHC RDW MCV MCH Lymph % (Auto) [place] % (Auto) [place] # Eos # Lymph # (Auto) [place] # (Auto) Eos # (Auto) Seg Neutrophils % Seg Neuts % (Manual) Baso # (Auto) Lymphocytes % (Manual) Monocytes % (Manual) Eosinophils % (Manual) Basophils % (Manual) Seg Neutrophils # Seg Neutrophils # Man Lymphocytes # (Manual) Monocytes # (Manual) Eosinophils # (Manual) Nucleated RBC % Basophils # (Manual) PT INR APTT Heparin Anti-Xa Level ABG pH POC ABG pO2 ABG pO2 ABG HCO3 ABG O2 Saturation ABG Base Excess POC ABG pCO2 ABG Hemoglobin ABG Oxyhemoglobin ABG Glucose Oxyhemoglobin Sodium Potassium Chloride Carbon Dioxide BUN Creatinine Glucose POC Glucose 159 H 198 H 115 H Lactic Acid Calcium Phosphorus Magnesium AST ALT Lactate Dehydrogenase CK-MB (CK-2) C-Reactive Protein NT-Pro-B Natriuret Pep Total Protein Albumin Arterial Blood Glucose Urine WBC (Auto) 12/06/19 12/06/19 12/06/19 05:24 05:24 05:25 WBC 14.9 H RBC Hgb 10.8 L Hct 34.0 L MCHC RDW 15.6 H MCV MCH Lymph % (Auto) 10.7 L [place] % (Auto) 8.3 H [place] # 1.2 H Eos # Lymph # (Auto) [place] # (Auto) Eos # (Auto) Seg Neutrophils % 78.7 H Seg Neuts % (Manual) Baso # (Auto) Lymphocytes % (Manual) Monocytes % (Manual) Eosinophils % (Manual) Basophils % (Manual) Seg Neutrophils # 11.7 H Seg Neutrophils # Man Lymphocytes # (Manual) Monocytes # (Manual) Eosinophils # (Manual) Nucleated RBC % Basophils # (Manual) PT INR APTT Heparin Anti-Xa Level ABG pH POC ABG pO2 ABG pO2 ABG HCO3 ABG O2 Saturation ABG Base Excess POC ABG pCO2 ABG Hemoglobin ABG Oxyhemoglobin ABG Glucose Oxyhemoglobin Sodium 148 H Potassium 5.1 H Chloride 107.6 H Carbon Dioxide BUN 27 H Creatinine 0.7 L Glucose 155 H POC Glucose 157 H Lactic Acid Calcium Phosphorus Magnesium AST ALT Lactate Dehydrogenase CK-MB (CK-2) C-Reactive Protein NT-Pro-B Natriuret Pep Total Protein Albumin Arterial Blood Glucose Urine WBC (Auto) 12/07/19 12/07/19 12/07/19 00:13 05:34 11:33 WBC RBC Hgb Hct MCHC RDW MCV MCH Lymph % (Auto) [place] % (Auto) [place] # Eos # Lymph # (Auto) [place] # (Auto) Eos # (Auto) Seg Neutrophils % Seg Neuts % (Manual) Baso # (Auto) Lymphocytes % (Manual) Monocytes % (Manual) Eosinophils % (Manual) Basophils % (Manual) Seg Neutrophils # Seg Neutrophils # Man Lymphocytes # (Manual) Monocytes # (Manual) Eosinophils # (Manual) Nucleated RBC % Basophils # (Manual) PT INR APTT Heparin Anti-Xa Level ABG pH POC ABG pO2 ABG pO2 ABG HCO3 ABG O2 Saturation ABG Base Excess POC ABG pCO2 ABG Hemoglobin ABG Oxyhemoglobin ABG Glucose Oxyhemoglobin Sodium Potassium Chloride Carbon Dioxide BUN Creatinine Glucose POC Glucose 142 H 111 H 169 H Lactic Acid Calcium Phosphorus Magnesium AST ALT Lactate Dehydrogenase CK-MB (CK-2) C-Reactive Protein NT-Pro-B Natriuret Pep Total Protein Albumin Arterial Blood Glucose Urine WBC (Auto) 12/07/19 12/07/19 12/07/19 12:41 13:25 18:19 WBC 12.4 H RBC 3.53 L Hgb 10.2 L Hct 32.1 L MCHC RDW 15.3 H MCV MCH Lymph % (Auto) 10.6 L [place] % (Auto) 7.8 H [place] # 1.0 H Eos # Lymph # (Auto) [place] # (Auto) Eos # (Auto) Seg Neutrophils % 77.6 H Seg Neuts % (Manual) Baso # (Auto) Lymphocytes % (Manual) Monocytes % (Manual) Eosinophils % (Manual) Basophils % (Manual) Seg Neutrophils # 9.6 H Seg Neutrophils # Man Lymphocytes # (Manual) Monocytes # (Manual) Eosinophils # (Manual) Nucleated RBC % Basophils # (Manual) PT INR APTT Heparin Anti-Xa Level ABG pH POC ABG pO2 ABG pO2 ABG HCO3 ABG O2 Saturation ABG Base Excess POC ABG pCO2 ABG Hemoglobin ABG Oxyhemoglobin ABG Glucose Oxyhemoglobin Sodium 149 H Potassium Chloride 108.4 H Carbon Dioxide BUN 26 H Creatinine 0.6 L Glucose 149 H POC Glucose 164 H Lactic Acid Calcium Phosphorus Magnesium 2.60 H AST 121 H ALT 145 H Lactate Dehydrogenase CK-MB (CK-2) C-Reactive Protein NT-Pro-B Natriuret Pep Total Protein Albumin 2.6 L Arterial Blood Glucose Urine WBC (Auto) 12/07/19 12/08/19 12/08/19 22:25 00:02 03:55 WBC 13.3 H RBC 3.40 L Hgb 9.7 L Hct 30.8 L MCHC 31 L RDW 15.5 H MCV MCH Lymph % (Auto) [place] % (Auto) 8.1 H [place] # 1.1 H Eos # Lymph # (Auto) [place] # (Auto) Eos # (Auto) Seg Neutrophils % 73.0 H Seg Neuts % (Manual) Baso # (Auto) Lymphocytes % (Manual) Monocytes % (Manual) Eosinophils % (Manual) Basophils % (Manual) Seg Neutrophils # 9.7 H Seg Neutrophils # Man Lymphocytes # (Manual) Monocytes # (Manual) Eosinophils # (Manual) Nucleated RBC % Basophils # (Manual) PT INR APTT Heparin Anti-Xa Level 0.12 L ABG pH POC ABG pO2 ABG pO2 ABG HCO3 ABG O2 Saturation ABG Base Excess POC ABG pCO2 ABG Hemoglobin ABG Oxyhemoglobin ABG Glucose Oxyhemoglobin Sodium Potassium Chloride Carbon Dioxide BUN Creatinine Glucose POC Glucose 151 H Lactic Acid Calcium Phosphorus Magnesium AST ALT Lactate Dehydrogenase CK-MB (CK-2) C-Reactive Protein NT-Pro-B Natriuret Pep Total Protein Albumin Arterial Blood Glucose Urine WBC (Auto) 12/08/19 12/08/19 12/08/19 03:55 05:21 06:01 WBC RBC Hgb Hct MCHC RDW MCV MCH Lymph % (Auto) [place] % (Auto) [place] # Eos # Lymph # (Auto) [place] # (Auto) Eos # (Auto) Seg Neutrophils % Seg Neuts % (Manual) Baso # (Auto) Lymphocytes % (Manual) Monocytes % (Manual) Eosinophils % (Manual) Basophils % (Manual) Seg Neutrophils # Seg Neutrophils # Man Lymphocytes # (Manual) Monocytes # (Manual) Eosinophils # (Manual) Nucleated RBC % Basophils # (Manual) PT INR APTT Heparin Anti-Xa Level 0.20 L ABG pH POC ABG pO2 ABG pO2 ABG HCO3 ABG O2 Saturation ABG Base Excess POC ABG pCO2 ABG Hemoglobin ABG Oxyhemoglobin ABG Glucose Oxyhemoglobin Sodium 149 H Potassium Chloride 108.0 H Carbon Dioxide BUN 28 H Creatinine 0.6 L Glucose 144 H POC Glucose 143 H Lactic Acid Calcium Phosphorus Magnesium AST 98 H ALT 145 H Lactate Dehydrogenase CK-MB (CK-2) C-Reactive Protein NT-Pro-B Natriuret Pep Total Protein 6.0 L Albumin 2.4 L Arterial Blood Glucose Urine WBC (Auto) 12/08/19 12/08/19 12/08/19 12:08 18:11 23:53 WBC RBC Hgb Hct MCHC RDW MCV MCH Lymph % (Auto) [place] % (Auto) [place] # Eos # Lymph # (Auto) [place] # (Auto) Eos # (Auto) Seg Neutrophils % Seg Neuts % (Manual) Baso # (Auto) Lymphocytes % (Manual) Monocytes % (Manual) Eosinophils % (Manual) Basophils % (Manual) Seg Neutrophils # Seg Neutrophils # Man Lymphocytes # (Manual) Monocytes # (Manual) Eosinophils # (Manual) Nucleated RBC % Basophils # (Manual) PT INR APTT Heparin Anti-Xa Level ABG pH POC ABG pO2 ABG pO2 ABG HCO3 ABG O2 Saturation ABG Base Excess POC ABG pCO2 ABG Hemoglobin ABG Oxyhemoglobin ABG Glucose Oxyhemoglobin Sodium Potassium Chloride Carbon Dioxide BUN Creatinine Glucose POC Glucose 172 H 122 H 162 H Lactic Acid Calcium Phosphorus Magnesium AST ALT Lactate Dehydrogenase CK-MB (CK-2) C-Reactive Protein NT-Pro-B Natriuret Pep Total Protein Albumin Arterial Blood Glucose Urine WBC (Auto) 12/09/19 12/09/19 12/09/19 04:03 04:03 05:53 WBC RBC Hgb 9.1 L Hct 28.9 L MCHC RDW MCV MCH Lymph % (Auto) [place] % (Auto) [place] # Eos # Lymph # (Auto) [place] # (Auto) Eos # (Auto) Seg Neutrophils % Seg Neuts % (Manual) Baso # (Auto) Lymphocytes % (Manual) Monocytes % (Manual) Eosinophils % (Manual) Basophils % (Manual) Seg Neutrophils # Seg Neutrophils # Man Lymphocytes # (Manual) Monocytes # (Manual) Eosinophils # (Manual) Nucleated RBC % Basophils # (Manual) PT INR APTT Heparin Anti-Xa Level 0.15 L ABG pH POC ABG pO2 ABG pO2 ABG HCO3 ABG O2 Saturation ABG Base Excess POC ABG pCO2 ABG Hemoglobin ABG Oxyhemoglobin ABG Glucose Oxyhemoglobin Sodium Potassium Chloride Carbon Dioxide BUN Creatinine Glucose POC Glucose 124 H Lactic Acid Calcium Phosphorus Magnesium AST ALT Lactate Dehydrogenase CK-MB (CK-2) C-Reactive Protein NT-Pro-B Natriuret Pep Total Protein Albumin Arterial Blood Glucose Urine WBC (Auto) 12/09/19 12/09/19 12/10/19 09:43 12:41 00:13 WBC RBC Hgb Hct MCHC RDW MCV MCH Lymph % (Auto) [place] % (Auto) [place] # Eos # Lymph # (Auto) [place] # (Auto) Eos # (Auto) Seg Neutrophils % Seg Neuts % (Manual) Baso # (Auto) Lymphocytes % (Manual) Monocytes % (Manual) Eosinophils % (Manual) Basophils % (Manual) Seg Neutrophils # Seg Neutrophils # Man Lymphocytes # (Manual) Monocytes # (Manual) Eosinophils # (Manual) Nucleated RBC % Basophils # (Manual) PT INR APTT Heparin Anti-Xa Level ABG pH POC ABG pO2 ABG pO2 ABG HCO3 ABG O2 Saturation ABG Base Excess POC ABG pCO2 ABG Hemoglobin ABG Oxyhemoglobin ABG Glucose Oxyhemoglobin Sodium Potassium Chloride Carbon Dioxide BUN 25 H Creatinine 0.6 L Glucose 131 H POC Glucose 109 H 120 H Lactic Acid Calcium Phosphorus Magnesium AST ALT Lactate Dehydrogenase CK-MB (CK-2) C-Reactive Protein NT-Pro-B Natriuret Pep Total Protein Albumin Arterial Blood Glucose Urine WBC (Auto) 12/10/19 12/10/19 12/10/19 04:14 04:14 12:00 WBC 13.3 H RBC 3.34 L Hgb 9.6 L Hct 30.4 L MCHC RDW 15.4 H MCV MCH Lymph % (Auto) [place] % (Auto) [place] # Eos # Lymph # (Auto) [place] # (Auto) Eos # (Auto) Seg Neutrophils % Seg Neuts % (Manual) 75.0 H Baso # (Auto) Lymphocytes % (Manual) 13.0 L Monocytes % (Manual) 8.0 H Eosinophils % (Manual) Basophils % (Manual) 2.0 H Seg Neutrophils # Seg Neutrophils # Man 10.0 H Lymphocytes # (Manual) Monocytes # (Manual) 1.1 H Eosinophils # (Manual) Nucleated RBC % Basophils # (Manual) 0.3 H PT INR APTT Heparin Anti-Xa Level ABG pH POC ABG pO2 ABG pO2 ABG HCO3 ABG O2 Saturation ABG Base Excess POC ABG pCO2 ABG Hemoglobin ABG Oxyhemoglobin ABG Glucose Oxyhemoglobin Sodium 147 H Potassium Chloride 108.3 H Carbon Dioxide BUN 21 H Creatinine 0.6 L Glucose 104 H POC Glucose 133 H Lactic Acid Calcium Phosphorus Magnesium AST ALT Lactate Dehydrogenase CK-MB (CK-2) C-Reactive Protein NT-Pro-B Natriuret Pep Total Protein Albumin Arterial Blood Glucose Urine WBC (Auto) 12/10/19 12/10/19 12/11/19 18:44 21:20 00:08 WBC 14.9 H RBC 3.36 L Hgb 9.6 L Hct 30.5 L MCHC RDW 15.4 H MCV MCH Lymph % (Auto) [place] % (Auto) [place] # Eos # Lymph # (Auto) [place] # (Auto) Eos # (Auto) Seg Neutrophils % Seg Neuts % (Manual) Baso # (Auto) Lymphocytes % (Manual) Monocytes % (Manual) Eosinophils % (Manual) Basophils % (Manual) Seg Neutrophils # Seg Neutrophils # Man Lymphocytes # (Manual) Monocytes # (Manual) Eosinophils # (Manual) Nucleated RBC % Basophils # (Manual) PT INR APTT Heparin Anti-Xa Level ABG pH POC ABG pO2 ABG pO2 ABG HCO3 ABG O2 Saturation ABG Base Excess POC ABG pCO2 ABG Hemoglobin ABG Oxyhemoglobin ABG Glucose Oxyhemoglobin Sodium Potassium Chloride Carbon Dioxide BUN Creatinine Glucose POC Glucose 119 H 134 H Lactic Acid Calcium Phosphorus Magnesium AST ALT Lactate Dehydrogenase CK-MB (CK-2) C-Reactive Protein NT-Pro-B Natriuret Pep Total Protein Albumin Arterial Blood Glucose Urine WBC (Auto) 12/11/19 12/11/19 12/11/19 03:54 07:28 08:36 WBC 11.9 H RBC 3.25 L Hgb 9.6 L Hct 29.2 L MCHC RDW 15.7 H MCV MCH Lymph % (Auto) [place] % (Auto) [place] # Eos # Lymph # (Auto) [place] # (Auto) Eos # (Auto) Seg Neutrophils % Seg Neuts % (Manual) Baso # (Auto) Lymphocytes % (Manual) Monocytes % (Manual) Eosinophils % (Manual) Basophils % (Manual) Seg Neutrophils # Seg Neutrophils # Man Lymphocytes # (Manual) Monocytes # (Manual) Eosinophils # (Manual) Nucleated RBC % Basophils # (Manual) PT INR APTT Heparin Anti-Xa Level 0.10 L 0.16 L ABG pH POC ABG pO2 ABG pO2 ABG HCO3 ABG O2 Saturation ABG Base Excess POC ABG pCO2 ABG Hemoglobin ABG Oxyhemoglobin ABG Glucose Oxyhemoglobin Sodium Potassium Chloride Carbon Dioxide BUN Creatinine Glucose POC Glucose Lactic Acid Calcium Phosphorus Magnesium AST ALT Lactate Dehydrogenase CK-MB (CK-2) C-Reactive Protein NT-Pro-B Natriuret Pep Total Protein Albumin Arterial Blood Glucose Urine WBC (Auto) 12/11/19 12/11/19 12/11/19 08:36 11:45 17:15 WBC RBC Hgb Hct MCHC RDW MCV MCH Lymph % (Auto) [place] % (Auto) [place] # Eos # Lymph # (Auto) [place] # (Auto) Eos # (Auto) Seg Neutrophils % Seg Neuts % (Manual) Baso # (Auto) Lymphocytes % (Manual) Monocytes % (Manual) Eosinophils % (Manual) Basophils % (Manual) Seg Neutrophils # Seg Neutrophils # Man Lymphocytes # (Manual) Monocytes # (Manual) Eosinophils # (Manual) Nucleated RBC % Basophils # (Manual) PT INR APTT Heparin Anti-Xa Level ABG pH POC ABG pO2 ABG pO2 ABG HCO3 ABG O2 Saturation ABG Base Excess POC ABG pCO2 ABG Hemoglobin ABG Oxyhemoglobin ABG Glucose Oxyhemoglobin Sodium Potassium Chloride Carbon Dioxide BUN Creatinine 0.5 L Glucose 128 H POC Glucose 136 H 109 H Lactic Acid Calcium Phosphorus Magnesium AST ALT Lactate Dehydrogenase CK-MB (CK-2) C-Reactive Protein NT-Pro-B Natriuret Pep Total Protein Albumin Arterial Blood Glucose Urine WBC (Auto) 12/12/19 12/12/19 12/12/19 00:03 05:53 05:53 WBC RBC Hgb 8.8 L Hct 27.6 L MCHC RDW MCV MCH Lymph % (Auto) [place] % (Auto) [place] # Eos # Lymph # (Auto) [place] # (Auto) Eos # (Auto) Seg Neutrophils % Seg Neuts % (Manual) Baso # (Auto) Lymphocytes % (Manual) Monocytes % (Manual) Eosinophils % (Manual) Basophils % (Manual) Seg Neutrophils # Seg Neutrophils # Man Lymphocytes # (Manual) Monocytes # (Manual) Eosinophils # (Manual) Nucleated RBC % Basophils # (Manual) PT INR APTT Heparin Anti-Xa Level 0.22 L ABG pH POC ABG pO2 ABG pO2 ABG HCO3 ABG O2 Saturation ABG Base Excess POC ABG pCO2 ABG Hemoglobin ABG Oxyhemoglobin ABG Glucose Oxyhemoglobin Sodium Potassium Chloride Carbon Dioxide BUN Creatinine Glucose POC Glucose 116 H Lactic Acid Calcium Phosphorus Magnesium AST ALT Lactate Dehydrogenase CK-MB (CK-2) C-Reactive Protein NT-Pro-B Natriuret Pep Total Protein Albumin Arterial Blood Glucose Urine WBC (Auto) 12/12/19 12/12/19 12/12/19 09:38 12:18 17:44 WBC RBC Hgb Hct MCHC RDW MCV MCH Lymph % (Auto) [place] % (Auto) [place] # Eos # Lymph # (Auto) [place] # (Auto) Eos # (Auto) Seg Neutrophils % Seg Neuts % (Manual) Baso # (Auto) Lymphocytes % (Manual) Monocytes % (Manual) Eosinophils % (Manual) Basophils % (Manual) Seg Neutrophils # Seg Neutrophils # Man Lymphocytes # (Manual) Monocytes # (Manual) Eosinophils # (Manual) Nucleated RBC % Basophils # (Manual) PT INR APTT Heparin Anti-Xa Level ABG pH POC ABG pO2 ABG pO2 ABG HCO3 ABG O2 Saturation ABG Base Excess POC ABG pCO2 ABG Hemoglobin ABG Oxyhemoglobin ABG Glucose Oxyhemoglobin Sodium Potassium Chloride Carbon Dioxide BUN Creatinine Glucose POC Glucose 115 H 146 H 146 H Lactic Acid Calcium Phosphorus Magnesium AST ALT Lactate Dehydrogenase CK-MB (CK-2) C-Reactive Protein NT-Pro-B Natriuret Pep Total Protein Albumin Arterial Blood Glucose Urine WBC (Auto) 12/12/19 12/13/19 12/13/19 23:33 05:32 05:32 WBC 13.1 H RBC 3.27 L Hgb 9.5 L Hct 29.3 L MCHC RDW 15.6 H MCV MCH Lymph % (Auto) [place] % (Auto) [place] # Eos # Lymph # (Auto) [place] # (Auto) Eos # (Auto) Seg Neutrophils % Seg Neuts % (Manual) 74.0 H Baso # (Auto) Lymphocytes % (Manual) 8.0 L Monocytes % (Manual) 9.0 H Eosinophils % (Manual) 5.0 H Basophils % (Manual) Seg Neutrophils # Seg Neutrophils # Man 9.7 H Lymphocytes # (Manual) 1.0 L Monocytes # (Manual) 1.2 H Eosinophils # (Manual) 0.7 H Nucleated RBC % Basophils # (Manual) PT INR APTT Heparin Anti-Xa Level 0.20 L ABG pH POC ABG pO2 ABG pO2 ABG HCO3 ABG O2 Saturation ABG Base Excess POC ABG pCO2 ABG Hemoglobin ABG Oxyhemoglobin ABG Glucose Oxyhemoglobin Sodium Potassium Chloride Carbon Dioxide BUN Creatinine Glucose POC Glucose 126 H Lactic Acid Calcium Phosphorus Magnesium AST ALT Lactate Dehydrogenase CK-MB (CK-2) C-Reactive Protein NT-Pro-B Natriuret Pep Total Protein Albumin Arterial Blood Glucose Urine WBC (Auto) 12/13/19 12/13/19 12/13/19 05:32 05:46 11:57 WBC RBC Hgb Hct MCHC RDW MCV MCH Lymph % (Auto) [place] % (Auto) [place] # Eos # Lymph # (Auto) [place] # (Auto) Eos # (Auto) Seg Neutrophils % Seg Neuts % (Manual) Baso # (Auto) Lymphocytes % (Manual) Monocytes % (Manual) Eosinophils % (Manual) Basophils % (Manual) Seg Neutrophils # Seg Neutrophils # Man Lymphocytes # (Manual) Monocytes # (Manual) Eosinophils # (Manual) Nucleated RBC % Basophils # (Manual) PT INR APTT Heparin Anti-Xa Level ABG pH POC ABG pO2 ABG pO2 ABG HCO3 ABG O2 Saturation ABG Base Excess POC ABG pCO2 ABG Hemoglobin ABG Oxyhemoglobin ABG Glucose Oxyhemoglobin Sodium Potassium Chloride Carbon Dioxide 31 H BUN Creatinine 0.6 L Glucose 114 H POC Glucose 118 H 133 H Lactic Acid Calcium Phosphorus Magnesium AST ALT Lactate Dehydrogenase CK-MB (CK-2) C-Reactive Protein NT-Pro-B Natriuret Pep Total Protein Albumin Arterial Blood Glucose Urine WBC (Auto) 12/13/19 12/13/19 12/14/19 17:44 23:46 05:32 WBC RBC Hgb Hct MCHC RDW MCV MCH Lymph % (Auto) [place] % (Auto) [place] # Eos # Lymph # (Auto) [place] # (Auto) Eos # (Auto) Seg Neutrophils % Seg Neuts % (Manual) Baso # (Auto) Lymphocytes % (Manual) Monocytes % (Manual) Eosinophils % (Manual) Basophils % (Manual) Seg Neutrophils # Seg Neutrophils # Man Lymphocytes # (Manual) Monocytes # (Manual) Eosinophils # (Manual) Nucleated RBC % Basophils # (Manual) PT INR APTT Heparin Anti-Xa Level ABG pH POC ABG pO2 ABG pO2 ABG HCO3 ABG O2 Saturation ABG Base Excess POC ABG pCO2 ABG Hemoglobin ABG Oxyhemoglobin ABG Glucose Oxyhemoglobin Sodium Potassium Chloride Carbon Dioxide BUN Creatinine Glucose POC Glucose 161 H 126 H 139 H Lactic Acid Calcium Phosphorus Magnesium AST ALT Lactate Dehydrogenase CK-MB (CK-2) C-Reactive Protein NT-Pro-B Natriuret Pep Total Protein Albumin Arterial Blood Glucose Urine WBC (Auto) 12/14/19 12/14/19 12/14/19 06:03 06:03 09:37 WBC RBC Hgb 9.6 L Hct 30.4 L MCHC RDW MCV MCH Lymph % (Auto) [place] % (Auto) [place] # Eos # Lymph # (Auto) [place] # (Auto) Eos # (Auto) Seg Neutrophils % Seg Neuts % (Manual) Baso # (Auto) Lymphocytes % (Manual) Monocytes % (Manual) Eosinophils % (Manual) Basophils % (Manual) Seg Neutrophils # Seg Neutrophils # Man Lymphocytes # (Manual) Monocytes # (Manual) Eosinophils # (Manual) Nucleated RBC % Basophils # (Manual) PT INR APTT Heparin Anti-Xa Level 0.24 L ABG pH POC ABG pO2 ABG pO2 ABG HCO3 ABG O2 Saturation ABG Base Excess POC ABG pCO2 ABG Hemoglobin ABG Oxyhemoglobin ABG Glucose Oxyhemoglobin Sodium Potassium Chloride Carbon Dioxide BUN Creatinine 0.6 L Glucose 162 H POC Glucose Lactic Acid Calcium Phosphorus Magnesium AST 71 H ALT 118 H Lactate Dehydrogenase CK-MB (CK-2) C-Reactive Protein NT-Pro-B Natriuret Pep Total Protein 6.2 L Albumin 2.3 L Arterial Blood Glucose Urine WBC (Auto) 12/14/19 12/14/19 12/15/19 12:06 18:18 00:19 WBC RBC Hgb Hct MCHC RDW MCV MCH Lymph % (Auto) [place] % (Auto) [place] # Eos # Lymph # (Auto) [place] # (Auto) Eos # (Auto) Seg Neutrophils % Seg Neuts % (Manual) Baso # (Auto) Lymphocytes % (Manual) Monocytes % (Manual) Eosinophils % (Manual) Basophils % (Manual) Seg Neutrophils # Seg Neutrophils # Man Lymphocytes # (Manual) Monocytes # (Manual) Eosinophils # (Manual) Nucleated RBC % Basophils # (Manual) PT INR APTT Heparin Anti-Xa Level ABG pH POC ABG pO2 ABG pO2 ABG HCO3 ABG O2 Saturation ABG Base Excess POC ABG pCO2 ABG Hemoglobin ABG Oxyhemoglobin ABG Glucose Oxyhemoglobin Sodium Potassium Chloride Carbon Dioxide BUN Creatinine Glucose POC Glucose 147 H 166 H 123 H Lactic Acid Calcium Phosphorus Magnesium AST ALT Lactate Dehydrogenase CK-MB (CK-2) C-Reactive Protein NT-Pro-B Natriuret Pep Total Protein Albumin Arterial Blood Glucose Urine WBC (Auto) 12/15/19 12/15/19 12/15/19 05:28 05:29 05:29 WBC 14.9 H RBC 3.19 L Hgb 9.1 L Hct 28.7 L MCHC RDW 16.0 H MCV MCH Lymph % (Auto) [place] % (Auto) [place] # Eos # Lymph # (Auto) [place] # (Auto) Eos # (Auto) Seg Neutrophils % Seg Neuts % (Manual) Baso # (Auto) Lymphocytes % (Manual) Monocytes % (Manual) Eosinophils % (Manual) Basophils % (Manual) Seg Neutrophils # Seg Neutrophils # Man Lymphocytes # (Manual) Monocytes # (Manual) Eosinophils # (Manual) Nucleated RBC % Basophils # (Manual) PT INR APTT Heparin Anti-Xa Level 0.19 L ABG pH POC ABG pO2 ABG pO2 ABG HCO3 ABG O2 Saturation ABG Base Excess POC ABG pCO2 ABG Hemoglobin ABG Oxyhemoglobin ABG Glucose Oxyhemoglobin Sodium Potassium Chloride Carbon Dioxide BUN Creatinine 0.6 L Glucose 110 H POC Glucose Lactic Acid Calcium Phosphorus Magnesium AST ALT Lactate Dehydrogenase CK-MB (CK-2) C-Reactive Protein NT-Pro-B Natriuret Pep Total Protein Albumin Arterial Blood Glucose Urine WBC (Auto) 12/15/19 12/15/19 12/15/19 05:53 11:50 17:26 WBC RBC Hgb Hct MCHC RDW MCV MCH Lymph % (Auto) [place] % (Auto) [place] # Eos # Lymph # (Auto) [place] # (Auto) Eos # (Auto) Seg Neutrophils % Seg Neuts % (Manual) Baso # (Auto) Lymphocytes % (Manual) Monocytes % (Manual) Eosinophils % (Manual) Basophils % (Manual) Seg Neutrophils # Seg Neutrophils # Man Lymphocytes # (Manual) Monocytes # (Manual) Eosinophils # (Manual) Nucleated RBC % Basophils # (Manual) PT INR APTT Heparin Anti-Xa Level ABG pH POC ABG pO2 ABG pO2 ABG HCO3 ABG O2 Saturation ABG Base Excess POC ABG pCO2 ABG Hemoglobin ABG Oxyhemoglobin ABG Glucose Oxyhemoglobin Sodium Potassium Chloride Carbon Dioxide BUN Creatinine Glucose POC Glucose 119 H 132 H 128 H Lactic Acid Calcium Phosphorus Magnesium AST ALT Lactate Dehydrogenase CK-MB (CK-2) C-Reactive Protein NT-Pro-B Natriuret Pep Total Protein Albumin Arterial Blood Glucose Urine WBC (Auto) 12/15/19 12/16/19 12/16/19 23:11 05:30 05:46 WBC RBC Hgb 8.8 L Hct 27.9 L MCHC RDW MCV MCH Lymph % (Auto) [place] % (Auto) [place] # Eos # Lymph # (Auto) [place] # (Auto) Eos # (Auto) Seg Neutrophils % Seg Neuts % (Manual) Baso # (Auto) Lymphocytes % (Manual) Monocytes % (Manual) Eosinophils % (Manual) Basophils % (Manual) Seg Neutrophils # Seg Neutrophils # Man Lymphocytes # (Manual) Monocytes # (Manual) Eosinophils # (Manual) Nucleated RBC % Basophils # (Manual) PT INR APTT Heparin Anti-Xa Level ABG pH POC ABG pO2 ABG pO2 ABG HCO3 ABG O2 Saturation ABG Base Excess POC ABG pCO2 ABG Hemoglobin ABG Oxyhemoglobin ABG Glucose Oxyhemoglobin Sodium Potassium Chloride Carbon Dioxide BUN Creatinine Glucose POC Glucose 150 H 134 H Lactic Acid Calcium Phosphorus Magnesium AST ALT Lactate Dehydrogenase CK-MB (CK-2) C-Reactive Protein NT-Pro-B Natriuret Pep Total Protein Albumin Arterial Blood Glucose Urine WBC (Auto) 12/16/19 12/16/19 12/16/19 05:46 05:46 11:44 WBC RBC Hgb Hct MCHC RDW MCV MCH Lymph % (Auto) [place] % (Auto) [place] # Eos # Lymph # (Auto) [place] # (Auto) Eos # (Auto) Seg Neutrophils % Seg Neuts % (Manual) Baso # (Auto) Lymphocytes % (Manual) Monocytes % (Manual) Eosinophils % (Manual) Basophils % (Manual) Seg Neutrophils # Seg Neutrophils # Man Lymphocytes # (Manual) Monocytes # (Manual) Eosinophils # (Manual) Nucleated RBC % Basophils # (Manual) PT INR APTT Heparin Anti-Xa Level 0.20 L ABG pH POC ABG pO2 ABG pO2 ABG HCO3 ABG O2 Saturation ABG Base Excess POC ABG pCO2 ABG Hemoglobin ABG Oxyhemoglobin ABG Glucose Oxyhemoglobin Sodium Potassium Chloride Carbon Dioxide 31 H BUN Creatinine 0.5 L Glucose 147 H POC Glucose 164 H Lactic Acid Calcium Phosphorus Magnesium AST ALT Lactate Dehydrogenase CK-MB (CK-2) C-Reactive Protein NT-Pro-B Natriuret Pep Total Protein Albumin Arterial Blood Glucose Urine WBC (Auto) 12/16/19 12/16/19 12/17/19 17:17 23:49 05:30 WBC 13.9 H RBC 3.27 L Hgb 9.4 L Hct 29.2 L MCHC RDW 16.0 H MCV MCH Lymph % (Auto) [place] % (Auto) 8.8 H [place] # Eos # Lymph # (Auto) [place] # (Auto) 1.2 H Eos # (Auto) 0.5 H Seg Neutrophils % 70.5 H Seg Neuts % (Manual) Baso # (Auto) 0.2 H Lymphocytes % (Manual) Monocytes % (Manual) Eosinophils % (Manual) Basophils % (Manual) Seg Neutrophils # 9.8 H Seg Neutrophils # Man Lymphocytes # (Manual) Monocytes # (Manual) Eosinophils # (Manual) Nucleated RBC % Basophils # (Manual) PT INR APTT Heparin Anti-Xa Level ABG pH POC ABG pO2 ABG pO2 ABG HCO3 ABG O2 Saturation ABG Base Excess POC ABG pCO2 ABG Hemoglobin ABG Oxyhemoglobin ABG Glucose Oxyhemoglobin Sodium Potassium Chloride Carbon Dioxide BUN Creatinine Glucose POC Glucose 162 H 144 H Lactic Acid Calcium Phosphorus Magnesium AST ALT Lactate Dehydrogenase CK-MB (CK-2) C-Reactive Protein NT-Pro-B Natriuret Pep Total Protein Albumin Arterial Blood Glucose Urine WBC (Auto) 12/17/19 12/17/19 12/17/19 05:30 06:06 11:50 WBC RBC Hgb Hct MCHC RDW MCV MCH Lymph % (Auto) [place] % (Auto) [place] # Eos # Lymph # (Auto) [place] # (Auto) Eos # (Auto) Seg Neutrophils % Seg Neuts % (Manual) Baso # (Auto) Lymphocytes % (Manual) Monocytes % (Manual) Eosinophils % (Manual) Basophils % (Manual) Seg Neutrophils # Seg Neutrophils # Man Lymphocytes # (Manual) Monocytes # (Manual) Eosinophils # (Manual) Nucleated RBC % Basophils # (Manual) PT INR APTT Heparin Anti-Xa Level ABG pH POC ABG pO2 ABG pO2 ABG HCO3 ABG O2 Saturation ABG Base Excess POC ABG pCO2 ABG Hemoglobin ABG Oxyhemoglobin ABG Glucose Oxyhemoglobin Sodium Potassium Chloride 97.4 L Carbon Dioxide 32 H BUN Creatinine 0.5 L Glucose 135 H POC Glucose 151 H 140 H Lactic Acid Calcium Phosphorus Magnesium AST ALT Lactate Dehydrogenase CK-MB (CK-2) C-Reactive Protein NT-Pro-B Natriuret Pep Total Protein Albumin Arterial Blood Glucose Urine WBC (Auto) 12/17/19 12/17/19 12/18/19 17:50 23:46 05:17 WBC RBC Hgb 8.8 L Hct 28.0 L MCHC RDW MCV MCH Lymph % (Auto) [place] % (Auto) [place] # Eos # Lymph # (Auto) [place] # (Auto) Eos # (Auto) Seg Neutrophils % Seg Neuts % (Manual) Baso # (Auto) Lymphocytes % (Manual) Monocytes % (Manual) Eosinophils % (Manual) Basophils % (Manual) Seg Neutrophils # Seg Neutrophils # Man Lymphocytes # (Manual) Monocytes # (Manual) Eosinophils # (Manual) Nucleated RBC % Basophils # (Manual) PT INR APTT Heparin Anti-Xa Level ABG pH POC ABG pO2 ABG pO2 ABG HCO3 ABG O2 Saturation ABG Base Excess POC ABG pCO2 ABG Hemoglobin ABG Oxyhemoglobin ABG Glucose Oxyhemoglobin Sodium Potassium Chloride Carbon Dioxide BUN Creatinine Glucose POC Glucose 158 H 150 H Lactic Acid Calcium Phosphorus Magnesium AST ALT Lactate Dehydrogenase CK-MB (CK-2) C-Reactive Protein NT-Pro-B Natriuret Pep Total Protein Albumin Arterial Blood Glucose Urine WBC (Auto) 12/18/19 12/18/19 12/18/19 05:17 05:49 11:12 WBC RBC Hgb Hct MCHC RDW MCV MCH Lymph % (Auto) [place] % (Auto) [place] # Eos # Lymph # (Auto) [place] # (Auto) Eos # (Auto) Seg Neutrophils % Seg Neuts % (Manual) Baso # (Auto) Lymphocytes % (Manual) Monocytes % (Manual) Eosinophils % (Manual) Basophils % (Manual) Seg Neutrophils # Seg Neutrophils # Man Lymphocytes # (Manual) Monocytes # (Manual) Eosinophils # (Manual) Nucleated RBC % Basophils # (Manual) PT INR APTT Heparin Anti-Xa Level 0.16 L ABG pH POC ABG pO2 ABG pO2 ABG HCO3 ABG O2 Saturation ABG Base Excess POC ABG pCO2 ABG Hemoglobin ABG Oxyhemoglobin ABG Glucose Oxyhemoglobin Sodium Potassium Chloride Carbon Dioxide BUN Creatinine Glucose POC Glucose 127 H 191 H Lactic Acid Calcium Phosphorus Magnesium AST ALT Lactate Dehydrogenase CK-MB (CK-2) C-Reactive Protein NT-Pro-B Natriuret Pep Total Protein Albumin Arterial Blood Glucose Urine WBC (Auto) 12/18/19 12/18/19 12/19/19 17:03 20:16 00:08 WBC RBC Hgb Hct MCHC RDW MCV MCH Lymph % (Auto) [place] % (Auto) [place] # Eos # Lymph # (Auto) [place] # (Auto) Eos # (Auto) Seg Neutrophils % Seg Neuts % (Manual) Baso # (Auto) Lymphocytes % (Manual) Monocytes % (Manual) Eosinophils % (Manual) Basophils % (Manual) Seg Neutrophils # Seg Neutrophils # Man Lymphocytes # (Manual) Monocytes # (Manual) Eosinophils # (Manual) Nucleated RBC % Basophils # (Manual) PT INR APTT Heparin Anti-Xa Level ABG pH POC ABG pO2 ABG pO2 ABG HCO3 ABG O2 Saturation ABG Base Excess POC ABG pCO2 ABG Hemoglobin ABG Oxyhemoglobin ABG Glucose Oxyhemoglobin Sodium Potassium Chloride Carbon Dioxide BUN Creatinine Glucose POC Glucose 133 H 128 H 129 H Lactic Acid Calcium Phosphorus Magnesium AST ALT Lactate Dehydrogenase CK-MB (CK-2) C-Reactive Protein NT-Pro-B Natriuret Pep Total Protein Albumin Arterial Blood Glucose Urine WBC (Auto) 12/19/19 12/19/19 12/19/19 04:45 04:45 05:35 WBC RBC Hgb Hct MCHC RDW MCV MCH Lymph % (Auto) [place] % (Auto) [place] # Eos # Lymph # (Auto) [place] # (Auto) Eos # (Auto) Seg Neutrophils % Seg Neuts % (Manual) Baso # (Auto) Lymphocytes % (Manual) Monocytes % (Manual) Eosinophils % (Manual) Basophils % (Manual) Seg Neutrophils # Seg Neutrophils # Man Lymphocytes # (Manual) Monocytes # (Manual) Eosinophils # (Manual) Nucleated RBC % Basophils # (Manual) PT INR APTT Heparin Anti-Xa Level 0.17 L ABG pH POC ABG pO2 ABG pO2 ABG HCO3 ABG O2 Saturation ABG Base Excess POC ABG pCO2 ABG Hemoglobin ABG Oxyhemoglobin ABG Glucose Oxyhemoglobin Sodium Potassium Chloride Carbon Dioxide BUN Creatinine Glucose POC Glucose 120 H Lactic Acid Calcium Phosphorus Magnesium AST ALT Lactate Dehydrogenase 228 H CK-MB (CK-2) C-Reactive Protein NT-Pro-B Natriuret Pep Total Protein Albumin Arterial Blood Glucose Urine WBC (Auto) 12/19/19 12/19/19 12/19/19 09:20 11:32 11:32 WBC 14.6 H RBC 3.08 L Hgb 9.0 L Hct 26.8 L MCHC RDW 15.9 H MCV MCH Lymph % (Auto) [place] % (Auto) [place] # Eos # Lymph # (Auto) [place] # (Auto) Eos # (Auto) Seg Neutrophils % Seg Neuts % (Manual) 82.0 H Baso # (Auto) Lymphocytes % (Manual) 10.0 L Monocytes % (Manual) Eosinophils % (Manual) Basophils % (Manual) Seg Neutrophils # Seg Neutrophils # Man 12.0 H Lymphocytes # (Manual) Monocytes # (Manual) 0.9 H Eosinophils # (Manual) Nucleated RBC % 1.0 H Basophils # (Manual) PT INR APTT Heparin Anti-Xa Level ABG pH 7.451 H POC ABG pO2 ABG pO2 62.6 L ABG HCO3 33.2 H ABG O2 Saturation 93.8 L ABG Base Excess 8.3 H POC ABG pCO2 ABG Hemoglobin 8.3 L ABG Oxyhemoglobin ABG Glucose Oxyhemoglobin 91.9 L Sodium Potassium Chloride 95.0 L Carbon Dioxide 33 H BUN 22 H Creatinine 0.6 L Glucose 150 H POC Glucose Lactic Acid Calcium Phosphorus Magnesium AST ALT Lactate Dehydrogenase CK-MB (CK-2) C-Reactive Protein NT-Pro-B Natriuret Pep Total Protein 6.2 L Albumin 2.4 L Arterial Blood Glucose Urine WBC (Auto) 12/19/19 12/19/19 12/20/19 11:56 18:17 00:09 WBC RBC Hgb Hct MCHC RDW MCV MCH Lymph % (Auto) [place] % (Auto) [place] # Eos # Lymph # (Auto) [place] # (Auto) Eos # (Auto) Seg Neutrophils % Seg Neuts % (Manual) Baso # (Auto) Lymphocytes % (Manual) Monocytes % (Manual) Eosinophils % (Manual) Basophils % (Manual) Seg Neutrophils # Seg Neutrophils # Man Lymphocytes # (Manual) Monocytes # (Manual) Eosinophils # (Manual) Nucleated RBC % Basophils # (Manual) PT INR APTT Heparin Anti-Xa Level ABG pH POC ABG pO2 ABG pO2 ABG HCO3 ABG O2 Saturation ABG Base Excess POC ABG pCO2 ABG Hemoglobin ABG Oxyhemoglobin ABG Glucose Oxyhemoglobin Sodium Potassium Chloride Carbon Dioxide BUN Creatinine Glucose POC Glucose 156 H 156 H 155 H Lactic Acid Calcium Phosphorus Magnesium AST ALT Lactate Dehydrogenase CK-MB (CK-2) C-Reactive Protein NT-Pro-B Natriuret Pep Total Protein Albumin Arterial Blood Glucose Urine WBC (Auto) 12/20/19 12/20/19 12/20/19 05:26 06:02 18:17 WBC RBC Hgb Hct MCHC RDW MCV MCH Lymph % (Auto) [place] % (Auto) [place] # Eos # Lymph # (Auto) [place] # (Auto) Eos # (Auto) Seg Neutrophils % Seg Neuts % (Manual) Baso # (Auto) Lymphocytes % (Manual) Monocytes % (Manual) Eosinophils % (Manual) Basophils % (Manual) Seg Neutrophils # Seg Neutrophils # Man Lymphocytes # (Manual) Monocytes # (Manual) Eosinophils # (Manual) Nucleated RBC % Basophils # (Manual) PT INR APTT Heparin Anti-Xa Level 0.19 L ABG pH POC ABG pO2 ABG pO2 ABG HCO3 ABG O2 Saturation ABG Base Excess POC ABG pCO2 ABG Hemoglobin ABG Oxyhemoglobin ABG Glucose Oxyhemoglobin Sodium Potassium Chloride Carbon Dioxide BUN Creatinine Glucose POC Glucose 137 H 128 H Lactic Acid Calcium Phosphorus Magnesium AST ALT Lactate Dehydrogenase CK-MB (CK-2) C-Reactive Protein NT-Pro-B Natriuret Pep Total Protein Albumin Arterial Blood Glucose Urine WBC (Auto) 12/20/19 12/21/19 12/21/19 23:34 05:31 05:31 WBC 12.7 H RBC 3.09 L Hgb 8.9 L Hct 27.4 L MCHC RDW 15.8 H MCV MCH Lymph % (Auto) 12.1 L [place] % (Auto) 7.8 H [place] # Eos # Lymph # (Auto) [place] # (Auto) 1.0 H Eos # (Auto) Seg Neutrophils % 77.1 H Seg Neuts % (Manual) Baso # (Auto) Lymphocytes % (Manual) Monocytes % (Manual) Eosinophils % (Manual) Basophils % (Manual) Seg Neutrophils # 9.8 H Seg Neutrophils # Man Lymphocytes # (Manual) Monocytes # (Manual) Eosinophils # (Manual) Nucleated RBC % Basophils # (Manual) PT INR APTT Heparin Anti-Xa Level ABG pH POC ABG pO2 ABG pO2 ABG HCO3 ABG O2 Saturation ABG Base Excess POC ABG pCO2 ABG Hemoglobin ABG Oxyhemoglobin ABG Glucose Oxyhemoglobin Sodium Potassium Chloride 96.9 L Carbon Dioxide 37 H BUN 27 H Creatinine 0.7 L Glucose 140 H POC Glucose 145 H Lactic Acid Calcium Phosphorus Magnesium AST ALT Lactate Dehydrogenase CK-MB (CK-2) C-Reactive Protein NT-Pro-B Natriuret Pep Total Protein Albumin Arterial Blood Glucose Urine WBC (Auto) 12/21/19 12/21/19 12/21/19 05:38 10:13 11:51 WBC RBC Hgb Hct MCHC RDW MCV MCH Lymph % (Auto) [place] % (Auto) [place] # Eos # Lymph # (Auto) [place] # (Auto) Eos # (Auto) Seg Neutrophils % Seg Neuts % (Manual) Baso # (Auto) Lymphocytes % (Manual) Monocytes % (Manual) Eosinophils % (Manual) Basophils % (Manual) Seg Neutrophils # Seg Neutrophils # Man Lymphocytes # (Manual) Monocytes # (Manual) Eosinophils # (Manual) Nucleated RBC % Basophils # (Manual) PT INR APTT 23.9 L Heparin Anti-Xa Level < 0.10 L ABG pH POC ABG pO2 ABG pO2 ABG HCO3 ABG O2 Saturation ABG Base Excess POC ABG pCO2 ABG Hemoglobin ABG Oxyhemoglobin ABG Glucose Oxyhemoglobin Sodium Potassium Chloride Carbon Dioxide BUN Creatinine Glucose POC Glucose 151 H 145 H Lactic Acid Calcium Phosphorus Magnesium AST ALT Lactate Dehydrogenase CK-MB (CK-2) C-Reactive Protein NT-Pro-B Natriuret Pep Total Protein Albumin Arterial Blood Glucose Urine WBC (Auto) 12/21/19 12/22/19 12/22/19 17:16 00:01 01:33 WBC RBC Hgb Hct MCHC RDW MCV MCH Lymph % (Auto) [place] % (Auto) [place] # Eos # Lymph # (Auto) [place] # (Auto) Eos # (Auto) Seg Neutrophils % Seg Neuts % (Manual) Baso # (Auto) Lymphocytes % (Manual) Monocytes % (Manual) Eosinophils % (Manual) Basophils % (Manual) Seg Neutrophils # Seg Neutrophils # Man Lymphocytes # (Manual) Monocytes # (Manual) Eosinophils # (Manual) Nucleated RBC % Basophils # (Manual) PT INR APTT Heparin Anti-Xa Level 0.10 L ABG pH POC ABG pO2 ABG pO2 ABG HCO3 ABG O2 Saturation ABG Base Excess POC ABG pCO2 ABG Hemoglobin ABG Oxyhemoglobin ABG Glucose Oxyhemoglobin Sodium Potassium Chloride Carbon Dioxide BUN Creatinine Glucose POC Glucose 167 H 179 H Lactic Acid Calcium Phosphorus Magnesium AST ALT Lactate Dehydrogenase CK-MB (CK-2) C-Reactive Protein NT-Pro-B Natriuret Pep Total Protein Albumin Arterial Blood Glucose Urine WBC (Auto) 12/22/19 12/22/19 12/22/19 03:22 05:10 05:10 WBC 13.8 H RBC 3.20 L Hgb 8.9 L Hct 28.1 L MCHC RDW 15.9 H MCV MCH Lymph % (Auto) [place] % (Auto) [place] # Eos # Lymph # (Auto) [place] # (Auto) Eos # (Auto) Seg Neutrophils % Seg Neuts % (Manual) Baso # (Auto) Lymphocytes % (Manual) Monocytes % (Manual) Eosinophils % (Manual) Basophils % (Manual) Seg Neutrophils # Seg Neutrophils # Man Lymphocytes # (Manual) Monocytes # (Manual) Eosinophils # (Manual) Nucleated RBC % Basophils # (Manual) PT INR APTT Heparin Anti-Xa Level ABG pH POC ABG pO2 52.3 L ABG pO2 ABG HCO3 ABG O2 Saturation ABG Base Excess POC ABG pCO2 52.9 H ABG Hemoglobin 10.7 L ABG Oxyhemoglobin 84 L ABG Glucose Oxyhemoglobin Sodium Potassium Chloride 96.6 L Carbon Dioxide BUN 25 H Creatinine 0.7 L Glucose 129 H POC Glucose Lactic Acid Calcium Phosphorus Magnesium AST ALT Lactate Dehydrogenase CK-MB (CK-2) C-Reactive Protein NT-Pro-B Natriuret Pep Total Protein Albumin Arterial Blood Glucose Urine WBC (Auto) 12/22/19 12/22/19 12/22/19 05:18 12:32 12:43 WBC RBC Hgb Hct MCHC RDW MCV MCH Lymph % (Auto) [place] % (Auto) [place] # Eos # Lymph # (Auto) [place] # (Auto) Eos # (Auto) Seg Neutrophils % Seg Neuts % (Manual) Baso # (Auto) Lymphocytes % (Manual) Monocytes % (Manual) Eosinophils % (Manual) Basophils % (Manual) Seg Neutrophils # Seg Neutrophils # Man Lymphocytes # (Manual) Monocytes # (Manual) Eosinophils # (Manual) Nucleated RBC % Basophils # (Manual) PT INR APTT Heparin Anti-Xa Level 0.18 L ABG pH POC ABG pO2 ABG pO2 ABG HCO3 ABG O2 Saturation ABG Base Excess POC ABG pCO2 ABG Hemoglobin ABG Oxyhemoglobin ABG Glucose Oxyhemoglobin Sodium Potassium Chloride Carbon Dioxide BUN Creatinine Glucose POC Glucose 131 H 208 H Lactic Acid Calcium Phosphorus Magnesium AST ALT Lactate Dehydrogenase CK-MB (CK-2) C-Reactive Protein NT-Pro-B Natriuret Pep Total Protein Albumin Arterial Blood Glucose Urine WBC (Auto) 12/22/19 12/22/19 12/23/19 17:44 23:20 03:51 WBC 15.2 H RBC 3.43 L Hgb 9.6 L Hct 30.3 L MCHC RDW 15.9 H MCV MCH Lymph % (Auto) [place] % (Auto) [place] # Eos # Lymph # (Auto) [place] # (Auto) Eos # (Auto) Seg Neutrophils % Seg Neuts % (Manual) Baso # (Auto) Lymphocytes % (Manual) Monocytes % (Manual) Eosinophils % (Manual) Basophils % (Manual) Seg Neutrophils # Seg Neutrophils # Man Lymphocytes # (Manual) Monocytes # (Manual) Eosinophils # (Manual) Nucleated RBC % Basophils # (Manual) PT INR APTT Heparin Anti-Xa Level ABG pH POC ABG pO2 ABG pO2 ABG HCO3 ABG O2 Saturation ABG Base Excess POC ABG pCO2 ABG Hemoglobin ABG Oxyhemoglobin ABG Glucose Oxyhemoglobin Sodium Potassium Chloride Carbon Dioxide BUN Creatinine Glucose POC Glucose 209 H 119 H Lactic Acid Calcium Phosphorus Magnesium AST ALT Lactate Dehydrogenase CK-MB (CK-2) C-Reactive Protein NT-Pro-B Natriuret Pep Total Protein Albumin Arterial Blood Glucose Urine WBC (Auto) 12/23/19 12/23/19 12/23/19 03:51 05:31 12:09 WBC RBC Hgb Hct MCHC RDW MCV MCH Lymph % (Auto) [place] % (Auto) [place] # Eos # Lymph # (Auto) [place] # (Auto) Eos # (Auto) Seg Neutrophils % Seg Neuts % (Manual) Baso # (Auto) Lymphocytes % (Manual) Monocytes % (Manual) Eosinophils % (Manual) Basophils % (Manual) Seg Neutrophils # Seg Neutrophils # Man Lymphocytes # (Manual) Monocytes # (Manual) Eosinophils # (Manual) Nucleated RBC % Basophils # (Manual) PT INR APTT Heparin Anti-Xa Level ABG pH POC ABG pO2 ABG pO2 ABG HCO3 ABG O2 Saturation ABG Base Excess POC ABG pCO2 ABG Hemoglobin ABG Oxyhemoglobin ABG Glucose Oxyhemoglobin Sodium Potassium Chloride 97.2 L Carbon Dioxide 31 H BUN 23 H Creatinine 0.6 L Glucose 153 H POC Glucose 149 H 144 H Lactic Acid Calcium Phosphorus Magnesium AST ALT Lactate Dehydrogenase CK-MB (CK-2) C-Reactive Protein NT-Pro-B Natriuret Pep Total Protein Albumin Arterial Blood Glucose Urine WBC (Auto) 12/23/19 12/23/19 12/23/19 15:30 17:49 23:31 WBC RBC Hgb Hct MCHC RDW MCV MCH Lymph % (Auto) [place] % (Auto) [place] # Eos # Lymph # (Auto) [place] # (Auto) Eos # (Auto) Seg Neutrophils % Seg Neuts % (Manual) Baso # (Auto) Lymphocytes % (Manual) Monocytes % (Manual) Eosinophils % (Manual) Basophils % (Manual) Seg Neutrophils # Seg Neutrophils # Man Lymphocytes # (Manual) Monocytes # (Manual) Eosinophils # (Manual) Nucleated RBC % Basophils # (Manual) PT INR APTT Heparin Anti-Xa Level 0.21 L ABG pH POC ABG pO2 ABG pO2 ABG HCO3 ABG O2 Saturation ABG Base Excess POC ABG pCO2 ABG Hemoglobin ABG Oxyhemoglobin ABG Glucose Oxyhemoglobin Sodium Potassium Chloride Carbon Dioxide BUN Creatinine Glucose POC Glucose 192 H 151 H Lactic Acid Calcium Phosphorus Magnesium AST ALT Lactate Dehydrogenase CK-MB (CK-2) C-Reactive Protein NT-Pro-B Natriuret Pep Total Protein Albumin Arterial Blood Glucose Urine WBC (Auto) 12/24/19 12/24/19 12/24/19 05:34 12:13 16:50 WBC RBC Hgb Hct MCHC RDW MCV MCH Lymph % (Auto) [place] % (Auto) [place] # Eos # Lymph # (Auto) [place] # (Auto) Eos # (Auto) Seg Neutrophils % Seg Neuts % (Manual) Baso # (Auto) Lymphocytes % (Manual) Monocytes % (Manual) Eosinophils % (Manual) Basophils % (Manual) Seg Neutrophils # Seg Neutrophils # Man Lymphocytes # (Manual) Monocytes # (Manual) Eosinophils # (Manual) Nucleated RBC % Basophils # (Manual) PT INR APTT Heparin Anti-Xa Level 0.16 L ABG pH POC ABG pO2 ABG pO2 ABG HCO3 ABG O2 Saturation ABG Base Excess POC ABG pCO2 ABG Hemoglobin ABG Oxyhemoglobin ABG Glucose Oxyhemoglobin Sodium Potassium Chloride Carbon Dioxide BUN Creatinine Glucose POC Glucose 145 H 124 H Lactic Acid Calcium Phosphorus Magnesium AST ALT Lactate Dehydrogenase CK-MB (CK-2) C-Reactive Protein NT-Pro-B Natriuret Pep Total Protein Albumin Arterial Blood Glucose Urine WBC (Auto) 12/24/19 12/25/19 12/25/19 17:53 00:14 04:18 WBC 12.9 H RBC 3.30 L Hgb 9.1 L Hct 28.8 L MCHC RDW 16.4 H MCV MCH Lymph % (Auto) [place] % (Auto) 7.8 H [place] # Eos # Lymph # (Auto) [place] # (Auto) 1.0 H Eos # (Auto) Seg Neutrophils % 75.5 H Seg Neuts % (Manual) Baso # (Auto) Lymphocytes % (Manual) Monocytes % (Manual) Eosinophils % (Manual) Basophils % (Manual) Seg Neutrophils # 9.7 H Seg Neutrophils # Man Lymphocytes # (Manual) Monocytes # (Manual) Eosinophils # (Manual) Nucleated RBC % Basophils # (Manual) PT INR APTT Heparin Anti-Xa Level ABG pH POC ABG pO2 ABG pO2 ABG HCO3 ABG O2 Saturation ABG Base Excess POC ABG pCO2 ABG Hemoglobin ABG Oxyhemoglobin ABG Glucose Oxyhemoglobin Sodium Potassium Chloride Carbon Dioxide BUN Creatinine Glucose POC Glucose 164 H 148 H Lactic Acid Calcium Phosphorus Magnesium AST ALT Lactate Dehydrogenase CK-MB (CK-2) C-Reactive Protein NT-Pro-B Natriuret Pep Total Protein Albumin Arterial Blood Glucose Urine WBC (Auto) 12/25/19 12/25/19 12/25/19 04:18 05:38 11:44 WBC RBC Hgb Hct MCHC RDW MCV MCH Lymph % (Auto) [place] % (Auto) [place] # Eos # Lymph # (Auto) [place] # (Auto) Eos # (Auto) Seg Neutrophils % Seg Neuts % (Manual) Baso # (Auto) Lymphocytes % (Manual) Monocytes % (Manual) Eosinophils % (Manual) Basophils % (Manual) Seg Neutrophils # Seg Neutrophils # Man Lymphocytes # (Manual) Monocytes # (Manual) Eosinophils # (Manual) Nucleated RBC % Basophils # (Manual) PT INR APTT Heparin Anti-Xa Level ABG pH POC ABG pO2 ABG pO2 ABG HCO3 ABG O2 Saturation ABG Base Excess POC ABG pCO2 ABG Hemoglobin ABG Oxyhemoglobin ABG Glucose Oxyhemoglobin Sodium Potassium Chloride Carbon Dioxide 33 H BUN 27 H Creatinine 0.6 L Glucose 132 H POC Glucose 152 H 166 H Lactic Acid Calcium Phosphorus Magnesium AST ALT Lactate Dehydrogenase CK-MB (CK-2) C-Reactive Protein NT-Pro-B Natriuret Pep Total Protein Albumin Arterial Blood Glucose Urine WBC (Auto) 12/25/19 12/26/19 12/26/19 18:29 00:17 00:18 WBC RBC Hgb Hct MCHC RDW MCV MCH Lymph % (Auto) [place] % (Auto) [place] # Eos # Lymph # (Auto) [place] # (Auto) Eos # (Auto) Seg Neutrophils % Seg Neuts % (Manual) Baso # (Auto) Lymphocytes % (Manual) Monocytes % (Manual) Eosinophils % (Manual) Basophils % (Manual) Seg Neutrophils # Seg Neutrophils # Man Lymphocytes # (Manual) Monocytes # (Manual) Eosinophils # (Manual) Nucleated RBC % Basophils # (Manual) PT INR APTT Heparin Anti-Xa Level ABG pH POC ABG pO2 ABG pO2 ABG HCO3 ABG O2 Saturation ABG Base Excess POC ABG pCO2 ABG Hemoglobin ABG Oxyhemoglobin ABG Glucose Oxyhemoglobin Sodium Potassium Chloride 97.8 L Carbon Dioxide BUN 25 H Creatinine 0.6 L Glucose 140 H POC Glucose 194 H 151 H Lactic Acid Calcium Phosphorus Magnesium AST ALT Lactate Dehydrogenase CK-MB (CK-2) C-Reactive Protein NT-Pro-B Natriuret Pep Total Protein Albumin Arterial Blood Glucose Urine WBC (Auto) 12/26/19 12/26/19 12/26/19 05:36 11:41 17:50 WBC RBC Hgb Hct MCHC RDW MCV MCH Lymph % (Auto) [place] % (Auto) [place] # Eos # Lymph # (Auto) [place] # (Auto) Eos # (Auto) Seg Neutrophils % Seg Neuts % (Manual) Baso # (Auto) Lymphocytes % (Manual) Monocytes % (Manual) Eosinophils % (Manual) Basophils % (Manual) Seg Neutrophils # Seg Neutrophils # Man Lymphocytes # (Manual) Monocytes # (Manual) Eosinophils # (Manual) Nucleated RBC % Basophils # (Manual) PT INR APTT Heparin Anti-Xa Level ABG pH POC ABG pO2 ABG pO2 ABG HCO3 ABG O2 Saturation ABG Base Excess POC ABG pCO2 ABG Hemoglobin ABG Oxyhemoglobin ABG Glucose Oxyhemoglobin Sodium Potassium Chloride Carbon Dioxide BUN Creatinine Glucose POC Glucose 156 H 148 H 139 H Lactic Acid Calcium Phosphorus Magnesium AST ALT Lactate Dehydrogenase CK-MB (CK-2) C-Reactive Protein NT-Pro-B Natriuret Pep Total Protein Albumin Arterial Blood Glucose Urine WBC (Auto) 12/26/19 12/27/19 12/27/19 23:19 05:34 12:02 WBC RBC Hgb Hct MCHC RDW MCV MCH Lymph % (Auto) [place] % (Auto) [place] # Eos # Lymph # (Auto) [place] # (Auto) Eos # (Auto) Seg Neutrophils % Seg Neuts % (Manual) Baso # (Auto) Lymphocytes % (Manual) Monocytes % (Manual) Eosinophils % (Manual) Basophils % (Manual) Seg Neutrophils # Seg Neutrophils # Man Lymphocytes # (Manual) Monocytes # (Manual) Eosinophils # (Manual) Nucleated RBC % Basophils # (Manual) PT INR APTT Heparin Anti-Xa Level ABG pH POC ABG pO2 ABG pO2 ABG HCO3 ABG O2 Saturation ABG Base Excess POC ABG pCO2 ABG Hemoglobin ABG Oxyhemoglobin ABG Glucose Oxyhemoglobin Sodium Potassium Chloride Carbon Dioxide BUN Creatinine Glucose POC Glucose 161 H 145 H 157 H Lactic Acid Calcium Phosphorus Magnesium AST ALT Lactate Dehydrogenase CK-MB (CK-2) C-Reactive Protein NT-Pro-B Natriuret Pep Total Protein Albumin Arterial Blood Glucose Urine WBC (Auto) 12/27/19 12/27/19 12/27/19 17:35 20:11 23:00 WBC RBC Hgb Hct MCHC RDW MCV MCH Lymph % (Auto) [place] % (Auto) [place] # Eos # Lymph # (Auto) [place] # (Auto) Eos # (Auto) Seg Neutrophils % Seg Neuts % (Manual) Baso # (Auto) Lymphocytes % (Manual) Monocytes % (Manual) Eosinophils % (Manual) Basophils % (Manual) Seg Neutrophils # Seg Neutrophils # Man Lymphocytes # (Manual) Monocytes # (Manual) Eosinophils # (Manual) Nucleated RBC % Basophils # (Manual) PT INR APTT Heparin Anti-Xa Level 0.19 L ABG pH POC ABG pO2 ABG pO2 ABG HCO3 ABG O2 Saturation ABG Base Excess POC ABG pCO2 ABG Hemoglobin ABG Oxyhemoglobin ABG Glucose Oxyhemoglobin Sodium Potassium Chloride Carbon Dioxide BUN Creatinine Glucose POC Glucose 158 H 155 H Lactic Acid Calcium Phosphorus Magnesium AST ALT Lactate Dehydrogenase CK-MB (CK-2) C-Reactive Protein NT-Pro-B Natriuret Pep Total Protein Albumin Arterial Blood Glucose Urine WBC (Auto) 12/27/19 12/28/19 12/28/19 23:45 02:41 02:41 WBC 13.0 H RBC 3.48 L Hgb 9.5 L Hct 30.6 L MCHC 31 L RDW 16.6 H MCV MCH 27 L Lymph % (Auto) 13.0 L [place] % (Auto) 8.0 H [place] # Eos # Lymph # (Auto) [place] # (Auto) 1.0 H Eos # (Auto) Seg Neutrophils % 76.3 H Seg Neuts % (Manual) Baso # (Auto) Lymphocytes % (Manual) Monocytes % (Manual) Eosinophils % (Manual) Basophils % (Manual) Seg Neutrophils # 9.9 H Seg Neutrophils # Man Lymphocytes # (Manual) Monocytes # (Manual) Eosinophils # (Manual) Nucleated RBC % Basophils # (Manual) PT INR APTT Heparin Anti-Xa Level ABG pH POC ABG pO2 ABG pO2 ABG HCO3 ABG O2 Saturation ABG Base Excess POC ABG pCO2 ABG Hemoglobin ABG Oxyhemoglobin ABG Glucose Oxyhemoglobin Sodium Potassium Chloride Carbon Dioxide BUN 22 H Creatinine 0.6 L Glucose 101 H POC Glucose 130 H Lactic Acid Calcium Phosphorus Magnesium AST ALT Lactate Dehydrogenase CK-MB (CK-2) C-Reactive Protein NT-Pro-B Natriuret Pep Total Protein Albumin Arterial Blood Glucose Urine WBC (Auto) 12/28/19 12/28/19 12/28/19 06:00 12:34 18:13 WBC RBC Hgb Hct MCHC RDW MCV MCH Lymph % (Auto) [place] % (Auto) [place] # Eos # Lymph # (Auto) [place] # (Auto) Eos # (Auto) Seg Neutrophils % Seg Neuts % (Manual) Baso # (Auto) Lymphocytes % (Manual) Monocytes % (Manual) Eosinophils % (Manual) Basophils % (Manual) Seg Neutrophils # Seg Neutrophils # Man Lymphocytes # (Manual) Monocytes # (Manual) Eosinophils # (Manual) Nucleated RBC % Basophils # (Manual) PT INR APTT Heparin Anti-Xa Level ABG pH POC ABG pO2 ABG pO2 ABG HCO3 ABG O2 Saturation ABG Base Excess POC ABG pCO2 ABG Hemoglobin ABG Oxyhemoglobin ABG Glucose Oxyhemoglobin Sodium Potassium Chloride Carbon Dioxide BUN Creatinine Glucose POC Glucose 150 H 161 H 128 H Lactic Acid Calcium Phosphorus Magnesium AST ALT Lactate Dehydrogenase CK-MB (CK-2) C-Reactive Protein NT-Pro-B Natriuret Pep Total Protein Albumin Arterial Blood Glucose Urine WBC (Auto) 12/28/19 12/29/19 12/29/19 23:36 05:21 11:40 WBC RBC Hgb Hct MCHC RDW MCV MCH Lymph % (Auto) [place] % (Auto) [place] # Eos # Lymph # (Auto) [place] # (Auto) Eos # (Auto) Seg Neutrophils % Seg Neuts % (Manual) Baso # (Auto) Lymphocytes % (Manual) Monocytes % (Manual) Eosinophils % (Manual) Basophils % (Manual) Seg Neutrophils # Seg Neutrophils # Man Lymphocytes # (Manual) Monocytes # (Manual) Eosinophils # (Manual) Nucleated RBC % Basophils # (Manual) PT INR APTT Heparin Anti-Xa Level ABG pH POC ABG pO2 ABG pO2 ABG HCO3 ABG O2 Saturation ABG Base Excess POC ABG pCO2 ABG Hemoglobin ABG Oxyhemoglobin ABG Glucose Oxyhemoglobin Sodium Potassium Chloride Carbon Dioxide BUN Creatinine Glucose POC Glucose 137 H 136 H 166 H Lactic Acid Calcium Phosphorus Magnesium AST ALT Lactate Dehydrogenase CK-MB (CK-2) C-Reactive Protein NT-Pro-B Natriuret Pep Total Protein Albumin Arterial Blood Glucose Urine WBC (Auto) 12/29/19 12/29/19 12/29/19 17:23 19:21 23:38 WBC RBC Hgb Hct MCHC RDW MCV MCH Lymph % (Auto) [place] % (Auto) [place] # Eos # Lymph # (Auto) [place] # (Auto) Eos # (Auto) Seg Neutrophils % Seg Neuts % (Manual) Baso # (Auto) Lymphocytes % (Manual) Monocytes % (Manual) Eosinophils % (Manual) Basophils % (Manual) Seg Neutrophils # Seg Neutrophils # Man Lymphocytes # (Manual) Monocytes # (Manual) Eosinophils # (Manual) Nucleated RBC % Basophils # (Manual) PT INR APTT Heparin Anti-Xa Level 0.20 L ABG pH POC ABG pO2 ABG pO2 ABG HCO3 ABG O2 Saturation ABG Base Excess POC ABG pCO2 ABG Hemoglobin ABG Oxyhemoglobin ABG Glucose Oxyhemoglobin Sodium Potassium Chloride Carbon Dioxide BUN Creatinine Glucose POC Glucose 144 H 141 H Lactic Acid Calcium Phosphorus Magnesium AST ALT Lactate Dehydrogenase CK-MB (CK-2) C-Reactive Protein NT-Pro-B Natriuret Pep Total Protein Albumin Arterial Blood Glucose Urine WBC (Auto) 12/30/19 12/30/19 12/30/19 03:58 03:58 04:59 WBC RBC 3.54 L Hgb 9.8 L Hct 30.7 L MCHC RDW 16.8 H MCV MCH Lymph % (Auto) [place] % (Auto) [place] # Eos # Lymph # (Auto) [place] # (Auto) Eos # (Auto) Seg Neutrophils % Seg Neuts % (Manual) Baso # (Auto) Lymphocytes % (Manual) Monocytes % (Manual) Eosinophils % (Manual) Basophils % (Manual) Seg Neutrophils # Seg Neutrophils # Man Lymphocytes # (Manual) Monocytes # (Manual) Eosinophils # (Manual) Nucleated RBC % Basophils # (Manual) PT INR APTT Heparin Anti-Xa Level ABG pH POC ABG pO2 ABG pO2 ABG HCO3 29.8 H ABG O2 Saturation ABG Base Excess 4.8 H POC ABG pCO2 ABG Hemoglobin 11.2 L ABG Oxyhemoglobin ABG Glucose Oxyhemoglobin 93.8 L Sodium Potassium Chloride 97.8 L Carbon Dioxide BUN 26 H Creatinine Glucose 168 H POC Glucose Lactic Acid Calcium Phosphorus Magnesium AST ALT Lactate Dehydrogenase CK-MB (CK-2) C-Reactive Protein NT-Pro-B Natriuret Pep Total Protein Albumin Arterial Blood Glucose Urine WBC (Auto) 12/30/19 12/30/19 12/30/19 05:45 11:34 17:28 WBC RBC Hgb Hct MCHC RDW MCV MCH Lymph % (Auto) [place] % (Auto) [place] # Eos # Lymph # (Auto) [place] # (Auto) Eos # (Auto) Seg Neutrophils % Seg Neuts % (Manual) Baso # (Auto) Lymphocytes % (Manual) Monocytes % (Manual) Eosinophils % (Manual) Basophils % (Manual) Seg Neutrophils # Seg Neutrophils # Man Lymphocytes # (Manual) Monocytes # (Manual) Eosinophils # (Manual) Nucleated RBC % Basophils # (Manual) PT INR APTT Heparin Anti-Xa Level ABG pH POC ABG pO2 ABG pO2 ABG HCO3 ABG O2 Saturation ABG Base Excess POC ABG pCO2 ABG Hemoglobin ABG Oxyhemoglobin ABG Glucose Oxyhemoglobin Sodium Potassium Chloride Carbon Dioxide BUN Creatinine Glucose POC Glucose 163 H 180 H 150 H Lactic Acid Calcium Phosphorus Magnesium AST ALT Lactate Dehydrogenase CK-MB (CK-2) C-Reactive Protein NT-Pro-B Natriuret Pep Total Protein Albumin Arterial Blood Glucose Urine WBC (Auto) 12/30/19 12/31/19 12/31/19 23:43 04:55 05:07 WBC RBC Hgb Hct MCHC RDW MCV MCH Lymph % (Auto) [place] % (Auto) [place] # Eos # Lymph # (Auto) [place] # (Auto) Eos # (Auto) Seg Neutrophils % Seg Neuts % (Manual) Baso # (Auto) Lymphocytes % (Manual) Monocytes % (Manual) Eosinophils % (Manual) Basophils % (Manual) Seg Neutrophils # Seg Neutrophils # Man Lymphocytes # (Manual) Monocytes # (Manual) Eosinophils # (Manual) Nucleated RBC % Basophils # (Manual) PT INR APTT Heparin Anti-Xa Level ABG pH POC ABG pO2 ABG pO2 ABG HCO3 ABG O2 Saturation ABG Base Excess POC ABG pCO2 ABG Hemoglobin ABG Oxyhemoglobin ABG Glucose Oxyhemoglobin Sodium Potassium 5.6 H D Chloride Carbon Dioxide BUN 33 H Creatinine Glucose 131 H POC Glucose 142 H 134 H Lactic Acid Calcium Phosphorus Magnesium AST ALT Lactate Dehydrogenase CK-MB (CK-2) C-Reactive Protein NT-Pro-B Natriuret Pep Total Protein Albumin Arterial Blood Glucose Urine WBC (Auto) 12/31/19 12/31/19 12/31/19 11:30 17:19 17:36 WBC RBC Hgb Hct MCHC RDW MCV MCH Lymph % (Auto) [place] % (Auto) [place] # Eos # Lymph # (Auto) [place] # (Auto) Eos # (Auto) Seg Neutrophils % Seg Neuts % (Manual) Baso # (Auto) Lymphocytes % (Manual) Monocytes % (Manual) Eosinophils % (Manual) Basophils % (Manual) Seg Neutrophils # Seg Neutrophils # Man Lymphocytes # (Manual) Monocytes # (Manual) Eosinophils # (Manual) Nucleated RBC % Basophils # (Manual) PT INR APTT Heparin Anti-Xa Level ABG pH POC ABG pO2 ABG pO2 ABG HCO3 ABG O2 Saturation ABG Base Excess POC ABG pCO2 ABG Hemoglobin ABG Oxyhemoglobin ABG Glucose Oxyhemoglobin Sodium Potassium Chloride Carbon Dioxide BUN 35 H Creatinine Glucose 156 H POC Glucose 158 H 181 H Lactic Acid Calcium Phosphorus Magnesium AST ALT Lactate Dehydrogenase CK-MB (CK-2) C-Reactive Protein NT-Pro-B Natriuret Pep Total Protein Albumin Arterial Blood Glucose Urine WBC (Auto) 12/31/19 12/31/19 12/31/19 18:16 19:41 21:53 WBC RBC Hgb Hct MCHC RDW MCV MCH Lymph % (Auto) [place] % (Auto) [place] # Eos # Lymph # (Auto) [place] # (Auto) Eos # (Auto) Seg Neutrophils % Seg Neuts % (Manual) Baso # (Auto) Lymphocytes % (Manual) Monocytes % (Manual) Eosinophils % (Manual) Basophils % (Manual) Seg Neutrophils # Seg Neutrophils # Man Lymphocytes # (Manual) Monocytes # (Manual) Eosinophils # (Manual) Nucleated RBC % Basophils # (Manual) PT INR APTT Heparin Anti-Xa Level 0.20 L ABG pH POC ABG pO2 ABG pO2 ABG HCO3 ABG O2 Saturation ABG Base Excess POC ABG pCO2 ABG Hemoglobin ABG Oxyhemoglobin ABG Glucose Oxyhemoglobin Sodium Potassium Chloride Carbon Dioxide BUN 34 H Creatinine Glucose 169 H POC Glucose 141 H Lactic Acid Calcium Phosphorus Magnesium AST ALT Lactate Dehydrogenase CK-MB (CK-2) C-Reactive Protein NT-Pro-B Natriuret Pep Total Protein Albumin Arterial Blood Glucose Urine WBC (Auto) 12/31/19 01/01/20 01/01/20 23:51 05:17 10:40 WBC RBC Hgb Hct MCHC RDW MCV MCH Lymph % (Auto) [place] % (Auto) [place] # Eos # Lymph # (Auto) [place] # (Auto) Eos # (Auto) Seg Neutrophils % Seg Neuts % (Manual) Baso # (Auto) Lymphocytes % (Manual) Monocytes % (Manual) Eosinophils % (Manual) Basophils % (Manual) Seg Neutrophils # Seg Neutrophils # Man Lymphocytes # (Manual) Monocytes # (Manual) Eosinophils # (Manual) Nucleated RBC % Basophils # (Manual) PT INR APTT Heparin Anti-Xa Level ABG pH POC ABG pO2 ABG pO2 ABG HCO3 ABG O2 Saturation ABG Base Excess POC ABG pCO2 ABG Hemoglobin ABG Oxyhemoglobin ABG Glucose Oxyhemoglobin Sodium Potassium Chloride Carbon Dioxide BUN 31 H Creatinine 0.7 L Glucose 137 H POC Glucose 131 H 155 H Lactic Acid Calcium Phosphorus Magnesium AST 73 H ALT 97 H Lactate Dehydrogenase CK-MB (CK-2) C-Reactive Protein NT-Pro-B Natriuret Pep 3866 H Total Protein Albumin 2.8 L Arterial Blood Glucose Urine WBC (Auto) 01/01/20 01/01/20 01/01/20 12:26 15:33 17:53 WBC 14.3 H RBC 3.35 L Hgb 9.1 L Hct 28.8 L MCHC RDW 17.0 H MCV MCH 27 L Lymph % (Auto) 7.0 L [place] % (Auto) 7.6 H [place] # Eos # Lymph # (Auto) 1.0 L [place] # (Auto) 1.1 H Eos # (Auto) Seg Neutrophils % 83.3 H Seg Neuts % (Manual) Baso # (Auto) Lymphocytes % (Manual) Monocytes % (Manual) Eosinophils % (Manual) Basophils % (Manual) Seg Neutrophils # 12.0 H Seg Neutrophils # Man Lymphocytes # (Manual) Monocytes # (Manual) Eosinophils # (Manual) Nucleated RBC % Basophils # (Manual) PT INR APTT Heparin Anti-Xa Level ABG pH POC ABG pO2 ABG pO2 ABG HCO3 ABG O2 Saturation ABG Base Excess POC ABG pCO2 ABG Hemoglobin ABG Oxyhemoglobin ABG Glucose Oxyhemoglobin Sodium Potassium Chloride Carbon Dioxide BUN Creatinine Glucose POC Glucose 128 H 128 H Lactic Acid Calcium Phosphorus Magnesium AST ALT Lactate Dehydrogenase CK-MB (CK-2) C-Reactive Protein NT-Pro-B Natriuret Pep Total Protein Albumin Arterial Blood Glucose Urine WBC (Auto) 01/01/20 01/02/20 01/02/20 23:04 05:39 07:00 WBC RBC Hgb Hct MCHC RDW MCV MCH Lymph % (Auto) [place] % (Auto) [place] # Eos # Lymph # (Auto) [place] # (Auto) Eos # (Auto) Seg Neutrophils % Seg Neuts % (Manual) Baso # (Auto) Lymphocytes % (Manual) Monocytes % (Manual) Eosinophils % (Manual) Basophils % (Manual) Seg Neutrophils # Seg Neutrophils # Man Lymphocytes # (Manual) Monocytes # (Manual) Eosinophils # (Manual) Nucleated RBC % Basophils # (Manual) PT INR APTT Heparin Anti-Xa Level 0.13 L ABG pH POC ABG pO2 ABG pO2 ABG HCO3 ABG O2 Saturation ABG Base Excess POC ABG pCO2 ABG Hemoglobin ABG Oxyhemoglobin ABG Glucose Oxyhemoglobin Sodium Potassium Chloride Carbon Dioxide BUN Creatinine Glucose POC Glucose 120 H 169 H Lactic Acid Calcium Phosphorus Magnesium AST ALT Lactate Dehydrogenase CK-MB (CK-2) C-Reactive Protein NT-Pro-B Natriuret Pep Total Protein Albumin Arterial Blood Glucose Urine WBC (Auto) 01/02/20 01/02/20 01/02/20 12:15 14:06 17:58 WBC RBC Hgb Hct MCHC RDW MCV MCH Lymph % (Auto) [place] % (Auto) [place] # Eos # Lymph # (Auto) [place] # (Auto) Eos # (Auto) Seg Neutrophils % Seg Neuts % (Manual) Baso # (Auto) Lymphocytes % (Manual) Monocytes % (Manual) Eosinophils % (Manual) Basophils % (Manual) Seg Neutrophils # Seg Neutrophils # Man Lymphocytes # (Manual) Monocytes # (Manual) Eosinophils # (Manual) Nucleated RBC % Basophils # (Manual) PT INR APTT Heparin Anti-Xa Level < 0.10 L ABG pH POC ABG pO2 ABG pO2 ABG HCO3 ABG O2 Saturation ABG Base Excess POC ABG pCO2 ABG Hemoglobin ABG Oxyhemoglobin ABG Glucose Oxyhemoglobin Sodium Potassium Chloride Carbon Dioxide BUN Creatinine Glucose POC Glucose 190 H 198 H Lactic Acid Calcium Phosphorus Magnesium AST ALT Lactate Dehydrogenase CK-MB (CK-2) C-Reactive Protein NT-Pro-B Natriuret Pep Total Protein Albumin Arterial Blood Glucose Urine WBC (Auto) 01/02/20 01/02/20 01/03/20 21:43 23:33 05:42 WBC RBC Hgb Hct MCHC RDW MCV MCH Lymph % (Auto) [place] % (Auto) [place] # Eos # Lymph # (Auto) [place] # (Auto) Eos # (Auto) Seg Neutrophils % Seg Neuts % (Manual) Baso # (Auto) Lymphocytes % (Manual) Monocytes % (Manual) Eosinophils % (Manual) Basophils % (Manual) Seg Neutrophils # Seg Neutrophils # Man Lymphocytes # (Manual) Monocytes # (Manual) Eosinophils # (Manual) Nucleated RBC % Basophils # (Manual) PT INR APTT Heparin Anti-Xa Level 0.10 L ABG pH POC ABG pO2 ABG pO2 ABG HCO3 ABG O2 Saturation ABG Base Excess POC ABG pCO2 ABG Hemoglobin ABG Oxyhemoglobin ABG Glucose Oxyhemoglobin Sodium Potassium Chloride Carbon Dioxide BUN Creatinine Glucose POC Glucose 180 H 163 H Lactic Acid Calcium Phosphorus Magnesium AST ALT Lactate Dehydrogenase CK-MB (CK-2) C-Reactive Protein NT-Pro-B Natriuret Pep Total Protein Albumin Arterial Blood Glucose Urine WBC (Auto) 01/03/20 01/03/20 01/03/20 06:50 07:25 07:45 WBC 12.1 H RBC 3.35 L Hgb 9.0 L Hct 28.9 L MCHC 31 L RDW 16.6 H MCV MCH 27 L Lymph % (Auto) 13.0 L [place] % (Auto) 8.6 H [place] # Eos # Lymph # (Auto) [place] # (Auto) 1.0 H Eos # (Auto) Seg Neutrophils % 75.9 H Seg Neuts % (Manual) Baso # (Auto) Lymphocytes % (Manual) Monocytes % (Manual) Eosinophils % (Manual) Basophils % (Manual) Seg Neutrophils # 9.2 H Seg Neutrophils # Man Lymphocytes # (Manual) Monocytes # (Manual) Eosinophils # (Manual) Nucleated RBC % Basophils # (Manual) PT INR APTT Heparin Anti-Xa Level 0.29 L ABG pH POC ABG pO2 ABG pO2 ABG HCO3 ABG O2 Saturation ABG Base Excess POC ABG pCO2 ABG Hemoglobin ABG Oxyhemoglobin ABG Glucose Oxyhemoglobin Sodium Potassium 3.3 L D Chloride Carbon Dioxide 35 H D BUN 23 H Creatinine 0.6 L Glucose 149 H POC Glucose Lactic Acid Calcium Phosphorus Magnesium AST ALT 88 H Lactate Dehydrogenase CK-MB (CK-2) C-Reactive Protein NT-Pro-B Natriuret Pep Total Protein 6.2 L Albumin 2.9 L Arterial Blood Glucose Urine WBC (Auto) 01/03/20 01/03/20 01/03/20 12:05 17:42 18:30 WBC RBC Hgb Hct MCHC RDW MCV MCH Lymph % (Auto) [place] % (Auto) [place] # Eos # Lymph # (Auto) [place] # (Auto) Eos # (Auto) Seg Neutrophils % Seg Neuts % (Manual) Baso # (Auto) Lymphocytes % (Manual) Monocytes % (Manual) Eosinophils % (Manual) Basophils % (Manual) Seg Neutrophils # Seg Neutrophils # Man Lymphocytes # (Manual) Monocytes # (Manual) Eosinophils # (Manual) Nucleated RBC % Basophils # (Manual) PT INR APTT Heparin Anti-Xa Level ABG pH POC ABG pO2 ABG pO2 70.7 L ABG HCO3 36.1 H ABG O2 Saturation 94.4 L ABG Base Excess 10.0 H POC ABG pCO2 ABG Hemoglobin 9.7 L ABG Oxyhemoglobin ABG Glucose Oxyhemoglobin 91.8 L Sodium Potassium Chloride Carbon Dioxide BUN Creatinine Glucose POC Glucose 128 H 132 H Lactic Acid Calcium Phosphorus Magnesium AST ALT Lactate Dehydrogenase CK-MB (CK-2) C-Reactive Protein NT-Pro-B Natriuret Pep Total Protein Albumin Arterial Blood Glucose Urine WBC (Auto) 01/04/20 01/04/20 01/04/20 00:10 04:26 05:23 WBC RBC Hgb Hct MCHC RDW MCV MCH Lymph % (Auto) [place] % (Auto) [place] # Eos # Lymph # (Auto) [place] # (Auto) Eos # (Auto) Seg Neutrophils % Seg Neuts % (Manual) Baso # (Auto) Lymphocytes % (Manual) Monocytes % (Manual) Eosinophils % (Manual) Basophils % (Manual) Seg Neutrophils # Seg Neutrophils # Man Lymphocytes # (Manual) Monocytes # (Manual) Eosinophils # (Manual) Nucleated RBC % Basophils # (Manual) PT INR APTT Heparin Anti-Xa Level 0.16 L ABG pH POC ABG pO2 ABG pO2 ABG HCO3 ABG O2 Saturation ABG Base Excess POC ABG pCO2 ABG Hemoglobin ABG Oxyhemoglobin ABG Glucose Oxyhemoglobin Sodium Potassium Chloride Carbon Dioxide BUN Creatinine Glucose POC Glucose 121 H 119 H Lactic Acid Calcium Phosphorus Magnesium AST ALT Lactate Dehydrogenase CK-MB (CK-2) C-Reactive Protein NT-Pro-B Natriuret Pep Total Protein Albumin Arterial Blood Glucose Urine WBC (Auto) 01/04/20 01/04/20 01/04/20 09:50 09:50 12:18 WBC 15.4 H RBC 3.30 L Hgb 8.7 L Hct 28.2 L MCHC 31 L RDW 17.0 H MCV MCH 26 L Lymph % (Auto) [place] % (Auto) 7.6 H [place] # Eos # Lymph # (Auto) [place] # (Auto) 1.2 H Eos # (Auto) Seg Neutrophils % 75.4 H Seg Neuts % (Manual) Baso # (Auto) Lymphocytes % (Manual) Monocytes % (Manual) Eosinophils % (Manual) Basophils % (Manual) Seg Neutrophils # 11.6 H Seg Neutrophils # Man Lymphocytes # (Manual) Monocytes # (Manual) Eosinophils # (Manual) Nucleated RBC % Basophils # (Manual) PT INR APTT Heparin Anti-Xa Level ABG pH POC ABG pO2 ABG pO2 ABG HCO3 ABG O2 Saturation ABG Base Excess POC ABG pCO2 ABG Hemoglobin ABG Oxyhemoglobin ABG Glucose Oxyhemoglobin Sodium 148 H Potassium 3.5 L Chloride Carbon Dioxide 32 H BUN Creatinine 0.6 L Glucose 114 H POC Glucose 111 H Lactic Acid Calcium Phosphorus Magnesium AST ALT 59 H Lactate Dehydrogenase CK-MB (CK-2) C-Reactive Protein NT-Pro-B Natriuret Pep Total Protein Albumin 2.6 L Arterial Blood Glucose Urine WBC (Auto) 01/05/20 01/05/20 01/05/20 04:05 04:05 05:19 WBC 11.7 H RBC 3.50 L Hgb 9.3 L Hct 29.9 L MCHC 31 L RDW 16.6 H MCV MCH 27 L Lymph % (Auto) 13.1 L [place] % (Auto) 9.7 H [place] # Eos # Lymph # (Auto) [place] # (Auto) 1.1 H Eos # (Auto) Seg Neutrophils % 74.0 H Seg Neuts % (Manual) Baso # (Auto) Lymphocytes % (Manual) Monocytes % (Manual) Eosinophils % (Manual) Basophils % (Manual) Seg Neutrophils # 8.6 H Seg Neutrophils # Man Lymphocytes # (Manual) Monocytes # (Manual) Eosinophils # (Manual) Nucleated RBC % Basophils # (Manual) PT INR APTT Heparin Anti-Xa Level ABG pH POC ABG pO2 ABG pO2 ABG HCO3 ABG O2 Saturation ABG Base Excess POC ABG pCO2 ABG Hemoglobin ABG Oxyhemoglobin ABG Glucose Oxyhemoglobin Sodium 151 H Potassium Chloride Carbon Dioxide 34 H BUN Creatinine 0.7 L Glucose POC Glucose 112 H Lactic Acid Calcium Phosphorus Magnesium AST ALT 59 H Lactate Dehydrogenase CK-MB (CK-2) C-Reactive Protein NT-Pro-B Natriuret Pep Total Protein 5.8 L Albumin 2.6 L Arterial Blood Glucose Urine WBC (Auto) 01/05/20 01/06/20 01/06/20 16:04 00:23 04:44 WBC RBC 3.36 L Hgb 8.9 L Hct 28.7 L MCHC 31 L RDW 16.9 H MCV MCH 26 L Lymph % (Auto) [place] % (Auto) 9.4 H [place] # Eos # Lymph # (Auto) [place] # (Auto) Eos # (Auto) Seg Neutrophils % Seg Neuts % (Manual) Baso # (Auto) Lymphocytes % (Manual) Monocytes % (Manual) Eosinophils % (Manual) Basophils % (Manual) Seg Neutrophils # Seg Neutrophils # Man Lymphocytes # (Manual) Monocytes # (Manual) Eosinophils # (Manual) Nucleated RBC % Basophils # (Manual) PT INR APTT Heparin Anti-Xa Level ABG pH POC ABG pO2 ABG pO2 ABG HCO3 ABG O2 Saturation ABG Base Excess POC ABG pCO2 ABG Hemoglobin ABG Oxyhemoglobin ABG Glucose Oxyhemoglobin Sodium 151 H Potassium 3.2 L Chloride Carbon Dioxide 34 H BUN Creatinine 0.6 L Glucose POC Glucose 107 H Lactic Acid Calcium Phosphorus Magnesium AST ALT Lactate Dehydrogenase CK-MB (CK-2) C-Reactive Protein NT-Pro-B Natriuret Pep Total Protein Albumin Arterial Blood Glucose Urine WBC (Auto) 01/06/20 01/06/20 01/06/20 04:44 05:33 12:04 WBC RBC Hgb Hct MCHC RDW MCV MCH Lymph % (Auto) [place] % (Auto) [place] # Eos # Lymph # (Auto) [place] # (Auto) Eos # (Auto) Seg Neutrophils % Seg Neuts % (Manual) Baso # (Auto) Lymphocytes % (Manual) Monocytes % (Manual) Eosinophils % (Manual) Basophils % (Manual) Seg Neutrophils # Seg Neutrophils # Man Lymphocytes # (Manual) Monocytes # (Manual) Eosinophils # (Manual) Nucleated RBC % Basophils # (Manual) PT INR APTT Heparin Anti-Xa Level ABG pH POC ABG pO2 ABG pO2 ABG HCO3 ABG O2 Saturation ABG Base Excess POC ABG pCO2 ABG Hemoglobin ABG Oxyhemoglobin ABG Glucose Oxyhemoglobin Sodium 151 H Potassium 3.4 L Chloride Carbon Dioxide 33 H BUN Creatinine 0.6 L Glucose 118 H POC Glucose 118 H 123 H Lactic Acid Calcium Phosphorus Magnesium AST ALT Lactate Dehydrogenase CK-MB (CK-2) C-Reactive Protein NT-Pro-B Natriuret Pep Total Protein 6.2 L Albumin 2.6 L Arterial Blood Glucose Urine WBC (Auto) 01/06/20 01/07/20 01/07/20 17:54 00:06 04:10 WBC RBC 3.42 L Hgb 8.9 L Hct 29.0 L MCHC 31 L RDW 17.1 H MCV MCH 26 L Lymph % (Auto) [place] % (Auto) 8.4 H [place] # Eos # Lymph # (Auto) [place] # (Auto) Eos # (Auto) Seg Neutrophils % Seg Neuts % (Manual) Baso # (Auto) Lymphocytes % (Manual) Monocytes % (Manual) Eosinophils % (Manual) Basophils % (Manual) Seg Neutrophils # Seg Neutrophils # Man Lymphocytes # (Manual) Monocytes # (Manual) Eosinophils # (Manual) Nucleated RBC % Basophils # (Manual) PT INR APTT Heparin Anti-Xa Level ABG pH POC ABG pO2 ABG pO2 ABG HCO3 ABG O2 Saturation ABG Base Excess POC ABG pCO2 ABG Hemoglobin ABG Oxyhemoglobin ABG Glucose Oxyhemoglobin Sodium Potassium Chloride Carbon Dioxide BUN Creatinine Glucose POC Glucose 112 H 126 H Lactic Acid Calcium Phosphorus Magnesium AST ALT Lactate Dehydrogenase CK-MB (CK-2) C-Reactive Protein NT-Pro-B Natriuret Pep Total Protein Albumin Arterial Blood Glucose Urine WBC (Auto) 01/07/20 01/07/20 01/07/20 04:10 05:59 12:27 WBC RBC Hgb Hct MCHC RDW MCV MCH Lymph % (Auto) [place] % (Auto) [place] # Eos # Lymph # (Auto) [place] # (Auto) Eos # (Auto) Seg Neutrophils % Seg Neuts % (Manual) Baso # (Auto) Lymphocytes % (Manual) Monocytes % (Manual) Eosinophils % (Manual) Basophils % (Manual) Seg Neutrophils # Seg Neutrophils # Man Lymphocytes # (Manual) Monocytes # (Manual) Eosinophils # (Manual) Nucleated RBC % Basophils # (Manual) PT INR APTT Heparin Anti-Xa Level ABG pH POC ABG pO2 ABG pO2 ABG HCO3 ABG O2 Saturation ABG Base Excess POC ABG pCO2 ABG Hemoglobin ABG Oxyhemoglobin ABG Glucose Oxyhemoglobin Sodium 153 H Potassium 3.5 L Chloride Carbon Dioxide 34 H BUN Creatinine 0.6 L Glucose 121 H POC Glucose 121 H 126 H Lactic Acid Calcium Phosphorus Magnesium AST ALT Lactate Dehydrogenase CK-MB (CK-2) C-Reactive Protein NT-Pro-B Natriuret Pep Total Protein 5.9 L Albumin 2.4 L Arterial Blood Glucose Urine WBC (Auto) 01/07/20 01/08/20 01/08/20 18:12 00:03 05:41 WBC RBC Hgb Hct MCHC RDW MCV MCH Lymph % (Auto) [place] % (Auto) [place] # Eos # Lymph # (Auto) [place] # (Auto) Eos # (Auto) Seg Neutrophils % Seg Neuts % (Manual) Baso # (Auto) Lymphocytes % (Manual) Monocytes % (Manual) Eosinophils % (Manual) Basophils % (Manual) Seg Neutrophils # Seg Neutrophils # Man Lymphocytes # (Manual) Monocytes # (Manual) Eosinophils # (Manual) Nucleated RBC % Basophils # (Manual) PT INR APTT Heparin Anti-Xa Level ABG pH POC ABG pO2 ABG pO2 ABG HCO3 ABG O2 Saturation ABG Base Excess POC ABG pCO2 ABG Hemoglobin ABG Oxyhemoglobin ABG Glucose Oxyhemoglobin Sodium Potassium Chloride Carbon Dioxide BUN Creatinine Glucose POC Glucose 124 H 130 H 138 H Lactic Acid Calcium Phosphorus Magnesium AST ALT Lactate Dehydrogenase CK-MB (CK-2) C-Reactive Protein NT-Pro-B Natriuret Pep Total Protein Albumin Arterial Blood Glucose Urine WBC (Auto) 01/08/20 01/08/20 01/08/20 09:28 11:42 18:21 WBC RBC Hgb Hct MCHC RDW MCV MCH Lymph % (Auto) [place] % (Auto) [place] # Eos # Lymph # (Auto) [place] # (Auto) Eos # (Auto) Seg Neutrophils % Seg Neuts % (Manual) Baso # (Auto) Lymphocytes % (Manual) Monocytes % (Manual) Eosinophils % (Manual) Basophils % (Manual) Seg Neutrophils # Seg Neutrophils # Man Lymphocytes # (Manual) Monocytes # (Manual) Eosinophils # (Manual) Nucleated RBC % Basophils # (Manual) PT INR APTT Heparin Anti-Xa Level ABG pH POC ABG pO2 ABG pO2 ABG HCO3 ABG O2 Saturation ABG Base Excess POC ABG pCO2 ABG Hemoglobin ABG Oxyhemoglobin ABG Glucose Oxyhemoglobin Sodium Potassium Chloride Carbon Dioxide BUN Creatinine Glucose POC Glucose 181 H 150 H 129 H Lactic Acid Calcium Phosphorus Magnesium AST ALT Lactate Dehydrogenase CK-MB (CK-2) C-Reactive Protein NT-Pro-B Natriuret Pep Total Protein Albumin Arterial Blood Glucose Urine WBC (Auto) 01/08/20 01/08/20 01/09/20 19:25 23:55 04:11 WBC RBC 3.43 L Hgb 8.9 L Hct 28.7 L MCHC 31 L RDW 17.6 H MCV MCH 26 L Lymph % (Auto) [place] % (Auto) 8.6 H [place] # Eos # Lymph # (Auto) [place] # (Auto) Eos # (Auto) Seg Neutrophils % Seg Neuts % (Manual) Baso # (Auto) Lymphocytes % (Manual) Monocytes % (Manual) Eosinophils % (Manual) Basophils % (Manual) Seg Neutrophils # Seg Neutrophils # Man Lymphocytes # (Manual) Monocytes # (Manual) Eosinophils # (Manual) Nucleated RBC % Basophils # (Manual) PT INR APTT Heparin Anti-Xa Level ABG pH POC ABG pO2 ABG pO2 ABG HCO3 ABG O2 Saturation ABG Base Excess POC ABG pCO2 ABG Hemoglobin ABG Oxyhemoglobin ABG Glucose Oxyhemoglobin Sodium Potassium Chloride Carbon Dioxide BUN Creatinine 0.7 L Glucose 117 H POC Glucose 132 H Lactic Acid Calcium Phosphorus Magnesium AST ALT Lactate Dehydrogenase CK-MB (CK-2) C-Reactive Protein NT-Pro-B Natriuret Pep Total Protein Albumin Arterial Blood Glucose Urine WBC (Auto) 01/09/20 01/09/20 01/09/20 04:11 05:38 22:58 WBC RBC Hgb Hct MCHC RDW MCV MCH Lymph % (Auto) [place] % (Auto) [place] # Eos # Lymph # (Auto) [place] # (Auto) Eos # (Auto) Seg Neutrophils % Seg Neuts % (Manual) Baso # (Auto) Lymphocytes % (Manual) Monocytes % (Manual) Eosinophils % (Manual) Basophils % (Manual) Seg Neutrophils # Seg Neutrophils # Man Lymphocytes # (Manual) Monocytes # (Manual) Eosinophils # (Manual) Nucleated RBC % Basophils # (Manual) PT INR APTT Heparin Anti-Xa Level ABG pH POC ABG pO2 ABG pO2 ABG HCO3 ABG O2 Saturation ABG Base Excess POC ABG pCO2 ABG Hemoglobin ABG Oxyhemoglobin ABG Glucose Oxyhemoglobin Sodium 147 H Potassium 3.3 L D Chloride Carbon Dioxide 32 H BUN Creatinine 0.6 L Glucose 106 H POC Glucose 107 H 113 H Lactic Acid Calcium Phosphorus Magnesium AST ALT Lactate Dehydrogenase CK-MB (CK-2) C-Reactive Protein NT-Pro-B Natriuret Pep Total Protein Albumin Arterial Blood Glucose Urine WBC (Auto) 01/10/20 01/10/20 01/10/20 04:05 11:36 17:54 WBC RBC Hgb Hct MCHC RDW MCV MCH Lymph % (Auto) [place] % (Auto) [place] # Eos # Lymph # (Auto) [place] # (Auto) Eos # (Auto) Seg Neutrophils % Seg Neuts % (Manual) Baso # (Auto) Lymphocytes % (Manual) Monocytes % (Manual) Eosinophils % (Manual) Basophils % (Manual) Seg Neutrophils # Seg Neutrophils # Man Lymphocytes # (Manual) Monocytes # (Manual) Eosinophils # (Manual) Nucleated RBC % Basophils # (Manual) PT INR APTT Heparin Anti-Xa Level ABG pH POC ABG pO2 ABG pO2 ABG HCO3 ABG O2 Saturation ABG Base Excess POC ABG pCO2 ABG Hemoglobin ABG Oxyhemoglobin ABG Glucose Oxyhemoglobin Sodium Potassium Chloride Carbon Dioxide BUN Creatinine 0.7 L Glucose 110 H POC Glucose 129 H 117 H Lactic Acid Calcium Phosphorus Magnesium AST ALT Lactate Dehydrogenase CK-MB (CK-2) C-Reactive Protein NT-Pro-B Natriuret Pep Total Protein Albumin Arterial Blood Glucose Urine WBC (Auto) 01/10/20 01/11/20 01/11/20 23:52 03:19 12:09 WBC RBC Hgb Hct MCHC RDW MCV MCH Lymph % (Auto) [place] % (Auto) [place] # Eos # Lymph # (Auto) [place] # (Auto) Eos # (Auto) Seg Neutrophils % Seg Neuts % (Manual) Baso # (Auto) Lymphocytes % (Manual) Monocytes % (Manual) Eosinophils % (Manual) Basophils % (Manual) Seg Neutrophils # Seg Neutrophils # Man Lymphocytes # (Manual) Monocytes # (Manual) Eosinophils # (Manual) Nucleated RBC % Basophils # (Manual) PT INR APTT Heparin Anti-Xa Level ABG pH POC ABG pO2 ABG pO2 ABG HCO3 ABG O2 Saturation ABG Base Excess POC ABG pCO2 ABG Hemoglobin ABG Oxyhemoglobin ABG Glucose Oxyhemoglobin Sodium Potassium Chloride Carbon Dioxide BUN Creatinine Glucose POC Glucose 117 H 136 H 115 H Lactic Acid Calcium Phosphorus Magnesium AST ALT Lactate Dehydrogenase CK-MB (CK-2) C-Reactive Protein NT-Pro-B Natriuret Pep Total Protein Albumin Arterial Blood Glucose Urine WBC (Auto) 01/11/20 01/11/20 01/12/20 18:27 23:28 00:23 WBC RBC Hgb 9.8 L Hct 31.6 L MCHC 31 L RDW 17.8 H MCV 83 L MCH 26 L Lymph % (Auto) [place] % (Auto) 8.0 H [place] # Eos # Lymph # (Auto) [place] # (Auto) Eos # (Auto) Seg Neutrophils % Seg Neuts % (Manual) Baso # (Auto) Lymphocytes % (Manual) Monocytes % (Manual) Eosinophils % (Manual) Basophils % (Manual) Seg Neutrophils # Seg Neutrophils # Man Lymphocytes # (Manual) Monocytes # (Manual) Eosinophils # (Manual) Nucleated RBC % Basophils # (Manual) PT INR APTT Heparin Anti-Xa Level ABG pH POC ABG pO2 ABG pO2 ABG HCO3 ABG O2 Saturation ABG Base Excess POC ABG pCO2 ABG Hemoglobin ABG Oxyhemoglobin ABG Glucose Oxyhemoglobin Sodium Potassium Chloride Carbon Dioxide BUN Creatinine Glucose POC Glucose 118 H 122 H Lactic Acid Calcium Phosphorus Magnesium AST ALT Lactate Dehydrogenase CK-MB (CK-2) C-Reactive Protein NT-Pro-B Natriuret Pep Total Protein Albumin Arterial Blood Glucose Urine WBC (Auto) 01/12/20 01/12/20 01/12/20 00:23 04:18 04:18 WBC RBC Hgb 9.6 L Hct 30.9 L MCHC 31 L RDW 17.3 H MCV 81 L MCH 25 L Lymph % (Auto) [place] % (Auto) [place] # Eos # Lymph # (Auto) [place] # (Auto) Eos # (Auto) Seg Neutrophils % Seg Neuts % (Manual) Baso # (Auto) Lymphocytes % (Manual) Monocytes % (Manual) Eosinophils % (Manual) Basophils % (Manual) Seg Neutrophils # Seg Neutrophils # Man Lymphocytes # (Manual) Monocytes # (Manual) Eosinophils # (Manual) Nucleated RBC % Basophils # (Manual) PT INR APTT Heparin Anti-Xa Level ABG pH POC ABG pO2 ABG pO2 ABG HCO3 ABG O2 Saturation ABG Base Excess POC ABG pCO2 ABG Hemoglobin ABG Oxyhemoglobin ABG Glucose Oxyhemoglobin Sodium Potassium Chloride Carbon Dioxide BUN Creatinine 0.7 L 0.7 L Glucose 111 H 108 H POC Glucose Lactic Acid Calcium Phosphorus Magnesium AST ALT Lactate Dehydrogenase CK-MB (CK-2) C-Reactive Protein NT-Pro-B Natriuret Pep Total Protein Albumin 2.6 L Arterial Blood Glucose Urine WBC (Auto) 01/12/20 01/12/20 01/12/20 06:03 12:27 13:58 WBC RBC Hgb Hct MCHC RDW MCV MCH Lymph % (Auto) [place] % (Auto) [place] # Eos # Lymph # (Auto) [place] # (Auto) Eos # (Auto) Seg Neutrophils % Seg Neuts % (Manual) Baso # (Auto) Lymphocytes % (Manual) Monocytes % (Manual) Eosinophils % (Manual) Basophils % (Manual) Seg Neutrophils # Seg Neutrophils # Man Lymphocytes # (Manual) Monocytes # (Manual) Eosinophils # (Manual) Nucleated RBC % Basophils # (Manual) PT INR APTT Heparin Anti-Xa Level ABG pH 7.453 H POC ABG pO2 76.6 L ABG pO2 ABG HCO3 ABG O2 Saturation ABG Base Excess POC ABG pCO2 ABG Hemoglobin 10.3 L ABG Oxyhemoglobin ABG Glucose 99 H Oxyhemoglobin Sodium Potassium Chloride Carbon Dioxide BUN Creatinine Glucose POC Glucose 128 H 121 H Lactic Acid Calcium Phosphorus Magnesium AST ALT Lactate Dehydrogenase CK-MB (CK-2) C-Reactive Protein NT-Pro-B Natriuret Pep Total Protein Albumin Arterial Blood Glucose 99 H Urine WBC (Auto) 01/12/20 01/13/20 01/13/20 18:24 12:01 17:46 WBC RBC Hgb Hct MCHC RDW MCV MCH Lymph % (Auto) [place] % (Auto) [place] # Eos # Lymph # (Auto) [place] # (Auto) Eos # (Auto) Seg Neutrophils % Seg Neuts % (Manual) Baso # (Auto) Lymphocytes % (Manual) Monocytes % (Manual) Eosinophils % (Manual) Basophils % (Manual) Seg Neutrophils # Seg Neutrophils # Man Lymphocytes # (Manual) Monocytes # (Manual) Eosinophils # (Manual) Nucleated RBC % Basophils # (Manual) PT INR APTT Heparin Anti-Xa Level ABG pH POC ABG pO2 ABG pO2 ABG HCO3 ABG O2 Saturation ABG Base Excess POC ABG pCO2 ABG Hemoglobin ABG Oxyhemoglobin ABG Glucose Oxyhemoglobin Sodium Potassium Chloride Carbon Dioxide BUN Creatinine Glucose POC Glucose 119 H 107 H 124 H Lactic Acid Calcium Phosphorus Magnesium AST ALT Lactate Dehydrogenase CK-MB (CK-2) C-Reactive Protein NT-Pro-B Natriuret Pep Total Protein Albumin Arterial Blood Glucose Urine WBC (Auto) 01/13/20 01/14/20 01/14/20 20:40 00:10 05:33 WBC RBC Hgb Hct MCHC RDW MCV MCH Lymph % (Auto) [place] % (Auto) [place] # Eos # Lymph # (Auto) [place] # (Auto) Eos # (Auto) Seg Neutrophils % Seg Neuts % (Manual) Baso # (Auto) Lymphocytes % (Manual) Monocytes % (Manual) Eosinophils % (Manual) Basophils % (Manual) Seg Neutrophils # Seg Neutrophils # Man Lymphocytes # (Manual) Monocytes # (Manual) Eosinophils # (Manual) Nucleated RBC % Basophils # (Manual) PT INR APTT Heparin Anti-Xa Level ABG pH POC ABG pO2 ABG pO2 65.3 L ABG HCO3 31.8 H ABG O2 Saturation 93.5 L ABG Base Excess 6.7 H POC ABG pCO2 ABG Hemoglobin 13.3 L ABG Oxyhemoglobin ABG Glucose Oxyhemoglobin 90.9 L Sodium Potassium Chloride Carbon Dioxide BUN Creatinine Glucose POC Glucose 111 H 111 H Lactic Acid Calcium Phosphorus Magnesium AST ALT Lactate Dehydrogenase CK-MB (CK-2) C-Reactive Protein NT-Pro-B Natriuret Pep Total Protein Albumin Arterial Blood Glucose Urine WBC (Auto) 01/14/20 01/14/20 01/14/20 12:10 16:14 16:14 WBC RBC Hgb 10.6 L Hct 34.2 L MCHC 31 L RDW 18.3 H MCV 83 L MCH 26 L Lymph % (Auto) [place] % (Auto) 7.4 H [place] # Eos # Lymph # (Auto) [place] # (Auto) Eos # (Auto) Seg Neutrophils % 71.9 H Seg Neuts % (Manual) Baso # (Auto) Lymphocytes % (Manual) Monocytes % (Manual) Eosinophils % (Manual) Basophils % (Manual) Seg Neutrophils # Seg Neutrophils # Man Lymphocytes # (Manual) Monocytes # (Manual) Eosinophils # (Manual) Nucleated RBC % Basophils # (Manual) PT INR APTT Heparin Anti-Xa Level ABG pH POC ABG pO2 ABG pO2 ABG HCO3 ABG O2 Saturation ABG Base Excess POC ABG pCO2 ABG Hemoglobin ABG Oxyhemoglobin ABG Glucose Oxyhemoglobin Sodium Potassium Chloride Carbon Dioxide 31 H BUN Creatinine 0.6 L Glucose 131 H POC Glucose 139 H Lactic Acid Calcium Phosphorus Magnesium AST ALT Lactate Dehydrogenase CK-MB (CK-2) C-Reactive Protein NT-Pro-B Natriuret Pep Total Protein Albumin Arterial Blood Glucose Urine WBC (Auto) 01/14/20 01/15/20 01/15/20 18:05 00:52 05:35 WBC RBC Hgb Hct MCHC RDW MCV MCH Lymph % (Auto) [place] % (Auto) [place] # Eos # Lymph # (Auto) [place] # (Auto) Eos # (Auto) Seg Neutrophils % Seg Neuts % (Manual) Baso # (Auto) Lymphocytes % (Manual) Monocytes % (Manual) Eosinophils % (Manual) Basophils % (Manual) Seg Neutrophils # Seg Neutrophils # Man Lymphocytes # (Manual) Monocytes # (Manual) Eosinophils # (Manual) Nucleated RBC % Basophils # (Manual) PT INR APTT Heparin Anti-Xa Level ABG pH POC ABG pO2 ABG pO2 ABG HCO3 ABG O2 Saturation ABG Base Excess POC ABG pCO2 ABG Hemoglobin ABG Oxyhemoglobin ABG Glucose Oxyhemoglobin Sodium Potassium Chloride Carbon Dioxide BUN Creatinine Glucose POC Glucose 147 H 140 H 159 H Lactic Acid Calcium Phosphorus Magnesium AST ALT Lactate Dehydrogenase CK-MB (CK-2) C-Reactive Protein NT-Pro-B Natriuret Pep Total Protein Albumin Arterial Blood Glucose Urine WBC (Auto) 01/15/20 01/15/20 01/16/20 12:52 17:43 00:32 WBC RBC Hgb Hct MCHC RDW MCV MCH Lymph % (Auto) [place] % (Auto) [place] # Eos # Lymph # (Auto) [place] # (Auto) Eos # (Auto) Seg Neutrophils % Seg Neuts % (Manual) Baso # (Auto) Lymphocytes % (Manual) Monocytes % (Manual) Eosinophils % (Manual) Basophils % (Manual) Seg Neutrophils # Seg Neutrophils # Man Lymphocytes # (Manual) Monocytes # (Manual) Eosinophils # (Manual) Nucleated RBC % Basophils # (Manual) PT INR APTT Heparin Anti-Xa Level ABG pH POC ABG pO2 ABG pO2 ABG HCO3 ABG O2 Saturation ABG Base Excess POC ABG pCO2 ABG Hemoglobin ABG Oxyhemoglobin ABG Glucose Oxyhemoglobin Sodium Potassium Chloride Carbon Dioxide BUN Creatinine Glucose POC Glucose 164 H 167 H 153 H Lactic Acid Calcium Phosphorus Magnesium AST ALT Lactate Dehydrogenase CK-MB (CK-2) C-Reactive Protein NT-Pro-B Natriuret Pep Total Protein Albumin Arterial Blood Glucose Urine WBC (Auto) 01/16/20 01/16/20 01/17/20 05:46 11:48 06:38 WBC RBC Hgb Hct MCHC RDW MCV MCH Lymph % (Auto) [place] % (Auto) [place] # Eos # Lymph # (Auto) [place] # (Auto) Eos # (Auto) Seg Neutrophils % Seg Neuts % (Manual) Baso # (Auto) Lymphocytes % (Manual) Monocytes % (Manual) Eosinophils % (Manual) Basophils % (Manual) Seg Neutrophils # Seg Neutrophils # Man Lymphocytes # (Manual) Monocytes # (Manual) Eosinophils # (Manual) Nucleated RBC % Basophils # (Manual) PT INR APTT Heparin Anti-Xa Level ABG pH POC ABG pO2 ABG pO2 ABG HCO3 ABG O2 Saturation ABG Base Excess POC ABG pCO2 ABG Hemoglobin ABG Oxyhemoglobin ABG Glucose Oxyhemoglobin Sodium Potassium Chloride Carbon Dioxide BUN Creatinine Glucose POC Glucose 163 H 155 H 116 H Lactic Acid Calcium Phosphorus Magnesium AST ALT Lactate Dehydrogenase CK-MB (CK-2) C-Reactive Protein NT-Pro-B Natriuret Pep Total Protein Albumin Arterial Blood Glucose Urine WBC (Auto) 01/17/20 01/17/20 01/18/20 11:36 17:43 00:12 WBC RBC Hgb Hct MCHC RDW MCV MCH Lymph % (Auto) [place] % (Auto) [place] # Eos # Lymph # (Auto) [place] # (Auto) Eos # (Auto) Seg Neutrophils % Seg Neuts % (Manual) Baso # (Auto) Lymphocytes % (Manual) Monocytes % (Manual) Eosinophils % (Manual) Basophils % (Manual) Seg Neutrophils # Seg Neutrophils # Man Lymphocytes # (Manual) Monocytes # (Manual) Eosinophils # (Manual) Nucleated RBC % Basophils # (Manual) PT INR APTT Heparin Anti-Xa Level ABG pH POC ABG pO2 ABG pO2 ABG HCO3 ABG O2 Saturation ABG Base Excess POC ABG pCO2 ABG Hemoglobin ABG Oxyhemoglobin ABG Glucose Oxyhemoglobin Sodium Potassium Chloride Carbon Dioxide BUN Creatinine Glucose POC Glucose 110 H 134 H 108 H Lactic Acid Calcium Phosphorus Magnesium AST ALT Lactate Dehydrogenase CK-MB (CK-2) C-Reactive Protein NT-Pro-B Natriuret Pep Total Protein Albumin Arterial Blood Glucose Urine WBC (Auto) 01/18/20 01/18/20 01/18/20 05:37 06:46 06:46 WBC RBC Hgb 10.1 L Hct 32.2 L MCHC 31 L RDW 18.1 H MCV 81 L MCH 25 L Lymph % (Auto) [place] % (Auto) [place] # Eos # Lymph # (Auto) [place] # (Auto) Eos # (Auto) Seg Neutrophils % 71.9 H Seg Neuts % (Manual) Baso # (Auto) Lymphocytes % (Manual) Monocytes % (Manual) Eosinophils % (Manual) Basophils % (Manual) Seg Neutrophils # Seg Neutrophils # Man Lymphocytes # (Manual) Monocytes # (Manual) Eosinophils # (Manual) Nucleated RBC % Basophils # (Manual) PT INR APTT Heparin Anti-Xa Level ABG pH POC ABG pO2 ABG pO2 ABG HCO3 ABG O2 Saturation ABG Base Excess POC ABG pCO2 ABG Hemoglobin ABG Oxyhemoglobin ABG Glucose Oxyhemoglobin Sodium Potassium Chloride Carbon Dioxide BUN Creatinine 0.7 L Glucose 155 H POC Glucose 168 H Lactic Acid Calcium Phosphorus Magnesium AST ALT Lactate Dehydrogenase CK-MB (CK-2) C-Reactive Protein NT-Pro-B Natriuret Pep Total Protein Albumin Arterial Blood Glucose Urine WBC (Auto) 01/18/20 01/18/20 01/18/20 12:05 17:14 23:28 WBC RBC Hgb Hct MCHC RDW MCV MCH Lymph % (Auto) [place] % (Auto) [place] # Eos # Lymph # (Auto) [place] # (Auto) Eos # (Auto) Seg Neutrophils % Seg Neuts % (Manual) Baso # (Auto) Lymphocytes % (Manual) Monocytes % (Manual) Eosinophils % (Manual) Basophils % (Manual) Seg Neutrophils # Seg Neutrophils # Man Lymphocytes # (Manual) Monocytes # (Manual) Eosinophils # (Manual) Nucleated RBC % Basophils # (Manual) PT INR APTT Heparin Anti-Xa Level ABG pH POC ABG pO2 ABG pO2 ABG HCO3 ABG O2 Saturation ABG Base Excess POC ABG pCO2 ABG Hemoglobin ABG Oxyhemoglobin ABG Glucose Oxyhemoglobin Sodium Potassium Chloride Carbon Dioxide BUN Creatinine Glucose POC Glucose 128 H 126 H 128 H Lactic Acid Calcium Phosphorus Magnesium AST ALT Lactate Dehydrogenase CK-MB (CK-2) C-Reactive Protein NT-Pro-B Natriuret Pep Total Protein Albumin Arterial Blood Glucose Urine WBC (Auto) 01/19/20 01/19/20 01/19/20 05:39 12:33 17:36 WBC RBC Hgb Hct MCHC RDW MCV MCH Lymph % (Auto) [place] % (Auto) [place] # Eos # Lymph # (Auto) [place] # (Auto) Eos # (Auto) Seg Neutrophils % Seg Neuts % (Manual) Baso # (Auto) Lymphocytes % (Manual) Monocytes % (Manual) Eosinophils % (Manual) Basophils % (Manual) Seg Neutrophils # Seg Neutrophils # Man Lymphocytes # (Manual) Monocytes # (Manual) Eosinophils # (Manual) Nucleated RBC % Basophils # (Manual) PT INR APTT Heparin Anti-Xa Level ABG pH POC ABG pO2 ABG pO2 ABG HCO3 ABG O2 Saturation ABG Base Excess POC ABG pCO2 ABG Hemoglobin ABG Oxyhemoglobin ABG Glucose Oxyhemoglobin Sodium Potassium Chloride Carbon Dioxide BUN Creatinine Glucose POC Glucose 164 H 171 H 152 H Lactic Acid Calcium Phosphorus Magnesium AST ALT Lactate Dehydrogenase CK-MB (CK-2) C-Reactive Protein NT-Pro-B Natriuret Pep Total Protein Albumin Arterial Blood Glucose Urine WBC (Auto) 01/20/20 01/20/20 01/20/20 00:12 05:20 05:35 WBC RBC Hgb 9.2 L Hct 29.4 L MCHC 31 L RDW 17.9 H MCV 81 L MCH 25 L Lymph % (Auto) [place] % (Auto) [place] # Eos # Lymph # (Auto) [place] # (Auto) Eos # (Auto) Seg Neutrophils % Seg Neuts % (Manual) Baso # (Auto) Lymphocytes % (Manual) Monocytes % (Manual) Eosinophils % (Manual) Basophils % (Manual) Seg Neutrophils # Seg Neutrophils # Man Lymphocytes # (Manual) Monocytes # (Manual) Eosinophils # (Manual) Nucleated RBC % Basophils # (Manual) PT INR APTT Heparin Anti-Xa Level ABG pH POC ABG pO2 ABG pO2 ABG HCO3 ABG O2 Saturation ABG Base Excess POC ABG pCO2 ABG Hemoglobin ABG Oxyhemoglobin ABG Glucose Oxyhemoglobin Sodium Potassium Chloride Carbon Dioxide BUN Creatinine Glucose POC Glucose 120 H 136 H Lactic Acid Calcium Phosphorus Magnesium AST ALT Lactate Dehydrogenase CK-MB (CK-2) C-Reactive Protein NT-Pro-B Natriuret Pep Total Protein Albumin Arterial Blood Glucose Urine WBC (Auto) 01/20/20 01/20/20 01/20/20 05:40 11:58 14:55 WBC RBC Hgb 9.0 L Hct 28.3 L MCHC RDW MCV MCH Lymph % (Auto) [place] % (Auto) [place] # Eos # Lymph # (Auto) [place] # (Auto) Eos # (Auto) Seg Neutrophils % Seg Neuts % (Manual) Baso # (Auto) Lymphocytes % (Manual) Monocytes % (Manual) Eosinophils % (Manual) Basophils % (Manual) Seg Neutrophils # Seg Neutrophils # Man Lymphocytes # (Manual) Monocytes # (Manual) Eosinophils # (Manual) Nucleated RBC % Basophils # (Manual) PT INR APTT Heparin Anti-Xa Level ABG pH POC ABG pO2 ABG pO2 ABG HCO3 ABG O2 Saturation ABG Base Excess POC ABG pCO2 ABG Hemoglobin ABG Oxyhemoglobin ABG Glucose Oxyhemoglobin Sodium Potassium Chloride Carbon Dioxide 32 H BUN 22 H Creatinine 0.7 L Glucose 128 H POC Glucose 152 H Lactic Acid Calcium Phosphorus Magnesium AST ALT Lactate Dehydrogenase CK-MB (CK-2) C-Reactive Protein NT-Pro-B Natriuret Pep Total Protein Albumin Arterial Blood Glucose Urine WBC (Auto) 01/20/20 01/20/20 01/20/20 14:55 18:14 21:35 WBC RBC Hgb Hct MCHC RDW MCV MCH Lymph % (Auto) [place] % (Auto) [place] # Eos # Lymph # (Auto) [place] # (Auto) Eos # (Auto) Seg Neutrophils % Seg Neuts % (Manual) Baso # (Auto) Lymphocytes % (Manual) Monocytes % (Manual) Eosinophils % (Manual) Basophils % (Manual) Seg Neutrophils # Seg Neutrophils # Man Lymphocytes # (Manual) Monocytes # (Manual) Eosinophils # (Manual) Nucleated RBC % Basophils # (Manual) PT 20.4 H INR 1.72 H APTT 40.6 H Heparin Anti-Xa Level > 2.00 H ABG pH POC ABG pO2 ABG pO2 ABG HCO3 ABG O2 Saturation ABG Base Excess POC ABG pCO2 ABG Hemoglobin ABG Oxyhemoglobin ABG Glucose Oxyhemoglobin Sodium Potassium Chloride Carbon Dioxide BUN Creatinine Glucose POC Glucose 150 H Lactic Acid Calcium Phosphorus Magnesium AST ALT Lactate Dehydrogenase CK-MB (CK-2) C-Reactive Protein NT-Pro-B Natriuret Pep Total Protein Albumin Arterial Blood Glucose Urine WBC (Auto) 01/21/20 01/21/20 01/21/20 00:30 05:47 05:59 WBC RBC Hgb Hct MCHC RDW MCV MCH Lymph % (Auto) [place] % (Auto) [place] # Eos # Lymph # (Auto) [place] # (Auto) Eos # (Auto) Seg Neutrophils % Seg Neuts % (Manual) Baso # (Auto) Lymphocytes % (Manual) Monocytes % (Manual) Eosinophils % (Manual) Basophils % (Manual) Seg Neutrophils # Seg Neutrophils # Man Lymphocytes # (Manual) Monocytes # (Manual) Eosinophils # (Manual) Nucleated RBC % Basophils # (Manual) PT INR APTT Heparin Anti-Xa Level 1.93 H ABG pH POC ABG pO2 ABG pO2 ABG HCO3 ABG O2 Saturation ABG Base Excess POC ABG pCO2 ABG Hemoglobin ABG Oxyhemoglobin ABG Glucose Oxyhemoglobin Sodium Potassium Chloride Carbon Dioxide BUN Creatinine Glucose POC Glucose 126 H 148 H Lactic Acid Calcium Phosphorus Magnesium AST ALT Lactate Dehydrogenase CK-MB (CK-2) C-Reactive Protein NT-Pro-B Natriuret Pep Total Protein Albumin Arterial Blood Glucose Urine WBC (Auto) 01/21/20 01/21/20 01/21/20 12:32 18:20 23:54 WBC RBC Hgb Hct MCHC RDW MCV MCH Lymph % (Auto) [place] % (Auto) [place] # Eos # Lymph # (Auto) [place] # (Auto) Eos # (Auto) Seg Neutrophils % Seg Neuts % (Manual) Baso # (Auto) Lymphocytes % (Manual) Monocytes % (Manual) Eosinophils % (Manual) Basophils % (Manual) Seg Neutrophils # Seg Neutrophils # Man Lymphocytes # (Manual) Monocytes # (Manual) Eosinophils # (Manual) Nucleated RBC % Basophils # (Manual) PT INR APTT Heparin Anti-Xa Level 1.28 H ABG pH POC ABG pO2 ABG pO2 ABG HCO3 ABG O2 Saturation ABG Base Excess POC ABG pCO2 ABG Hemoglobin ABG Oxyhemoglobin ABG Glucose Oxyhemoglobin Sodium Potassium Chloride Carbon Dioxide BUN Creatinine Glucose POC Glucose 112 H 146 H Lactic Acid Calcium Phosphorus Magnesium AST ALT Lactate Dehydrogenase CK-MB (CK-2) C-Reactive Protein NT-Pro-B Natriuret Pep Total Protein Albumin Arterial Blood Glucose Urine WBC (Auto) 01/22/20 01/22/20 01/22/20 04:45 04:45 05:48 WBC RBC Hgb 9.3 L Hct 29.0 L MCHC RDW MCV MCH Lymph % (Auto) [place] % (Auto) [place] # Eos # Lymph # (Auto) [place] # (Auto) Eos # (Auto) Seg Neutrophils % Seg Neuts % (Manual) Baso # (Auto) Lymphocytes % (Manual) Monocytes % (Manual) Eosinophils % (Manual) Basophils % (Manual) Seg Neutrophils # Seg Neutrophils # Man Lymphocytes # (Manual) Monocytes # (Manual) Eosinophils # (Manual) Nucleated RBC % Basophils # (Manual) PT INR APTT Heparin Anti-Xa Level 1.34 H ABG pH POC ABG pO2 ABG pO2 ABG HCO3 ABG O2 Saturation ABG Base Excess POC ABG pCO2 ABG Hemoglobin ABG Oxyhemoglobin ABG Glucose Oxyhemoglobin Sodium Potassium Chloride Carbon Dioxide BUN Creatinine Glucose POC Glucose 142 H Lactic Acid Calcium Phosphorus Magnesium AST ALT Lactate Dehydrogenase CK-MB (CK-2) C-Reactive Protein NT-Pro-B Natriuret Pep Total Protein Albumin Arterial Blood Glucose Urine WBC (Auto) 01/22/20 01/22/20 01/22/20 08:09 08:22 09:58 WBC RBC Hgb Hct MCHC RDW MCV MCH Lymph % (Auto) [place] % (Auto) [place] # Eos # Lymph # (Auto) [place] # (Auto) Eos # (Auto) Seg Neutrophils % Seg Neuts % (Manual) Baso # (Auto) Lymphocytes % (Manual) Monocytes % (Manual) Eosinophils % (Manual) Basophils % (Manual) Seg Neutrophils # Seg Neutrophils # Man Lymphocytes # (Manual) Monocytes # (Manual) Eosinophils # (Manual) Nucleated RBC % Basophils # (Manual) PT 16.9 H INR 1.34 H APTT Heparin Anti-Xa Level ABG pH POC ABG pO2 ABG pO2 ABG HCO3 ABG O2 Saturation ABG Base Excess POC ABG pCO2 ABG Hemoglobin ABG Oxyhemoglobin ABG Glucose Oxyhemoglobin Sodium Potassium Chloride 97.8 L Carbon Dioxide BUN 29 H Creatinine Glucose 128 H POC Glucose 131 H Lactic Acid Calcium Phosphorus Magnesium AST ALT Lactate Dehydrogenase CK-MB (CK-2) C-Reactive Protein NT-Pro-B Natriuret Pep Total Protein Albumin Arterial Blood Glucose Urine WBC (Auto) 01/22/20 01/22/20 01/22/20 12:44 16:13 18:18 WBC RBC Hgb Hct MCHC RDW MCV MCH Lymph % (Auto) [place] % (Auto) [place] # Eos # Lymph # (Auto) [place] # (Auto) Eos # (Auto) Seg Neutrophils % Seg Neuts % (Manual) Baso # (Auto) Lymphocytes % (Manual) Monocytes % (Manual) Eosinophils % (Manual) Basophils % (Manual) Seg Neutrophils # Seg Neutrophils # Man Lymphocytes # (Manual) Monocytes # (Manual) Eosinophils # (Manual) Nucleated RBC % Basophils # (Manual) PT INR APTT Heparin Anti-Xa Level ABG pH POC ABG pO2 ABG pO2 ABG HCO3 ABG O2 Saturation ABG Base Excess POC ABG pCO2 ABG Hemoglobin ABG Oxyhemoglobin ABG Glucose Oxyhemoglobin Sodium Potassium Chloride Carbon Dioxide BUN Creatinine Glucose POC Glucose 156 H 133 H 155 H Lactic Acid Calcium Phosphorus Magnesium AST ALT Lactate Dehydrogenase CK-MB (CK-2) C-Reactive Protein NT-Pro-B Natriuret Pep Total Protein Albumin Arterial Blood Glucose Urine WBC (Auto) 01/22/20 01/23/20 01/23/20 23:22 05:37 12:59 WBC RBC Hgb Hct MCHC RDW MCV MCH Lymph % (Auto) [place] % (Auto) [place] # Eos # Lymph # (Auto) [place] # (Auto) Eos # (Auto) Seg Neutrophils % Seg Neuts % (Manual) Baso # (Auto) Lymphocytes % (Manual) Monocytes % (Manual) Eosinophils % (Manual) Basophils % (Manual) Seg Neutrophils # Seg Neutrophils # Man Lymphocytes # (Manual) Monocytes # (Manual) Eosinophils # (Manual) Nucleated RBC % Basophils # (Manual) PT INR APTT Heparin Anti-Xa Level ABG pH POC ABG pO2 ABG pO2 ABG HCO3 ABG O2 Saturation ABG Base Excess POC ABG pCO2 ABG Hemoglobin ABG Oxyhemoglobin ABG Glucose Oxyhemoglobin Sodium Potassium Chloride Carbon Dioxide BUN Creatinine Glucose POC Glucose 148 H 163 H 175 H Lactic Acid Calcium Phosphorus Magnesium AST ALT Lactate Dehydrogenase CK-MB (CK-2) C-Reactive Protein NT-Pro-B Natriuret Pep Total Protein Albumin Arterial Blood Glucose Urine WBC (Auto) 01/23/20 01/23/20 01/24/20 17:28 23:56 04:30 WBC RBC 3.46 L Hgb 8.8 L Hct 27.8 L MCHC RDW 18.2 H MCV 81 L MCH 25 L Lymph % (Auto) [place] % (Auto) 7.8 H [place] # Eos # Lymph # (Auto) [place] # (Auto) Eos # (Auto) Seg Neutrophils % Seg Neuts % (Manual) Baso # (Auto) Lymphocytes % (Manual) Monocytes % (Manual) Eosinophils % (Manual) Basophils % (Manual) Seg Neutrophils # Seg Neutrophils # Man Lymphocytes # (Manual) Monocytes # (Manual) Eosinophils # (Manual) Nucleated RBC % Basophils # (Manual) PT INR APTT Heparin Anti-Xa Level ABG pH POC ABG pO2 ABG pO2 ABG HCO3 ABG O2 Saturation ABG Base Excess POC ABG pCO2 ABG Hemoglobin ABG Oxyhemoglobin ABG Glucose Oxyhemoglobin Sodium Potassium Chloride Carbon Dioxide BUN Creatinine Glucose POC Glucose 165 H 177 H Lactic Acid Calcium Phosphorus Magnesium AST ALT Lactate Dehydrogenase CK-MB (CK-2) C-Reactive Protein NT-Pro-B Natriuret Pep Total Protein Albumin Arterial Blood Glucose Urine WBC (Auto) 01/24/20 01/24/20 01/24/20 04:30 07:18 12:06 WBC RBC Hgb Hct MCHC RDW MCV MCH Lymph % (Auto) [place] % (Auto) [place] # Eos # Lymph # (Auto) [place] # (Auto) Eos # (Auto) Seg Neutrophils % Seg Neuts % (Manual) Baso # (Auto) Lymphocytes % (Manual) Monocytes % (Manual) Eosinophils % (Manual) Basophils % (Manual) Seg Neutrophils # Seg Neutrophils # Man Lymphocytes # (Manual) Monocytes # (Manual) Eosinophils # (Manual) Nucleated RBC % Basophils # (Manual) PT INR APTT Heparin Anti-Xa Level ABG pH POC ABG pO2 ABG pO2 ABG HCO3 ABG O2 Saturation ABG Base Excess POC ABG pCO2 ABG Hemoglobin ABG Oxyhemoglobin ABG Glucose Oxyhemoglobin Sodium Potassium Chloride 97.9 L Carbon Dioxide BUN 31 H Creatinine Glucose 146 H POC Glucose 151 H 133 H Lactic Acid Calcium Phosphorus Magnesium AST ALT Lactate Dehydrogenase CK-MB (CK-2) C-Reactive Protein NT-Pro-B Natriuret Pep Total Protein Albumin Arterial Blood Glucose Urine WBC (Auto) 01/24/20 01/25/20 01/25/20 17:36 00:08 04:25 WBC RBC 3.50 L Hgb 8.7 L Hct 27.9 L MCHC 31 L RDW 18.2 H MCV 80 L MCH 25 L Lymph % (Auto) [place] % (Auto) 8.5 H [place] # Eos # Lymph # (Auto) [place] # (Auto) Eos # (Auto) Seg Neutrophils % Seg Neuts % (Manual) Baso # (Auto) Lymphocytes % (Manual) Monocytes % (Manual) Eosinophils % (Manual) Basophils % (Manual) Seg Neutrophils # Seg Neutrophils # Man Lymphocytes # (Manual) Monocytes # (Manual) Eosinophils # (Manual) Nucleated RBC % Basophils # (Manual) PT INR APTT Heparin Anti-Xa Level ABG pH POC ABG pO2 ABG pO2 ABG HCO3 ABG O2 Saturation ABG Base Excess POC ABG pCO2 ABG Hemoglobin ABG Oxyhemoglobin ABG Glucose Oxyhemoglobin Sodium Potassium Chloride Carbon Dioxide BUN Creatinine Glucose POC Glucose 133 H 129 H Lactic Acid Calcium Phosphorus Magnesium AST ALT Lactate Dehydrogenase CK-MB (CK-2) C-Reactive Protein NT-Pro-B Natriuret Pep Total Protein Albumin Arterial Blood Glucose Urine WBC (Auto) 01/25/20 01/25/20 01/25/20 04:25 05:38 11:52 WBC RBC Hgb Hct MCHC RDW MCV MCH Lymph % (Auto) [place] % (Auto) [place] # Eos # Lymph # (Auto) [place] # (Auto) Eos # (Auto) Seg Neutrophils % Seg Neuts % (Manual) Baso # (Auto) Lymphocytes % (Manual) Monocytes % (Manual) Eosinophils % (Manual) Basophils % (Manual) Seg Neutrophils # Seg Neutrophils # Man Lymphocytes # (Manual) Monocytes # (Manual) Eosinophils # (Manual) Nucleated RBC % Basophils # (Manual) PT INR APTT Heparin Anti-Xa Level ABG pH POC ABG pO2 ABG pO2 ABG HCO3 ABG O2 Saturation ABG Base Excess POC ABG pCO2 ABG Hemoglobin ABG Oxyhemoglobin ABG Glucose Oxyhemoglobin Sodium Potassium Chloride Carbon Dioxide BUN 30 H Creatinine Glucose 134 H POC Glucose 129 H 134 H Lactic Acid Calcium Phosphorus Magnesium AST ALT Lactate Dehydrogenase CK-MB (CK-2) C-Reactive Protein NT-Pro-B Natriuret Pep Total Protein Albumin Arterial Blood Glucose Urine WBC (Auto) Chest x-ray: pending Allied health notes reviewed: nursing
[2020-01-25] MEDS: POLYETHYLENE GLYCOL 3350 17 GM POWDER PO SCH (21:05)
[2020-01-25] MEDS: TAMSULOSIN 0.4 MG CAP PO SCH (21:06)
[2020-01-25 21:24] LABS: ABG Base Excess 6.6 mmol/L (-2.0-3.0); ABG HCO3 31.7 mmol/L (20.0-26.0); ABG Methemoglobin 0.6 % (0.0-1.5); ABG Oxygen Saturation 90.3 % (95.0-99.0); ABG PH 7.447 pH Units (7.350-7.450); ABG PO2 57.5 mm Hg (80.0-90.0)
[2020-01-26] MEDS: METOPROLOL TARTRATE 25 MG TAB PO SCH ×4 (00:21→18:34)
[2020-01-26] MEDS: LORazepam 2 MG/ML VIAL IV PRN ×2 (00:21→10:09)
[2020-01-26 04:43] LABS: Hematocrit 29.4 % (35.5-45.6); Hemoglobin 9.2 gm/dl (11.8-15.2)
[2020-01-26] MEDS: NITROGLYCERIN 0.4 MG PATCH 24HR TD SCH (05:33)
[2020-01-26] MEDS: FUROSEMIDE 20 MG/2 ML INJ IV SCH (05:33)
--- NOTE | 2020-01-26 08:41 | Progress Note ---
Assessment and Plan Acute hypoxemic respiratory failure Bilateral pneumonia, community acquired. Acute LLL branch P.E. Acute DVT Person under investigation for COVID-19 infection. Acute congestive heart failure exacerbation. History of cerebrovascular accident. Acute chronic obstructive pulmonary disease exacerbation. Hypertension and hypertensive urgency at presentation. History of arthritis. Leukocytosis. Lactic acidosis. Oropharyngeal dysphagia - continue diuresis but increase to 40mg IV bid as still with positive fluid balance - repeat CXR in am - add mucomyst nebs re: secretions - follow electrolytes and correct as necessary - continue Robinul & Scopolamine for secretion control - continue full anticoagulation with Apixaban - continue care as below otherwise; - continue daily SAT's and SBT assessment as tolerated - continue seroquel for anxiolysis / delirium - COVID isolation per facility protocol - prn diuresis while following electrolytes / I's & O's - continue to wean oxygen for O2 sat's > 92% - continue bronchodilators with routine trach care and pulmonary hygiene per RT - VAP bundle addressed (Aspiration precautions, HOB >40) - continue to wean per pulmonary driven protocols - sedation target is RASS 0 to -1 - continue prn analgesia per CPOT score - follow clinically re: fever curves / trend WBC - Avoid delirium (no benzodiazepines if they can be avoided) - Maintain sleep-wake cycle - enteral nutrition at goal rate as tolerated - continue accucheck's with glycemic control per SSI for target blood glucose go al of 140-180 mg/dL while critically ill; Avoid hypoglycemia - for VTE he is on IV Heparin - continue stress ulcer prophylaxis with Famotidine - continue mobility protocols for pressure ulcer prophylaxis - continue fall precautions - continue wound care management per RN / WCT - Supportive transfusions to keep HgB>7g/dL - CXR's and ABG's prn - Continue to monitor neurologic function - Continue chronic home medications - Continue all supportive care ........ re-evaluate in am & prn CONDITION: CRITICAL PROGNOSIS: GUARDED CODE STATUS: FULL CODE The high probability of a clinically significant, sudden or life threatening deterioration of the [Respiratory, cardiovascular & neurological] system(s) required my full and direct attention, intervention and personal management. The aggregate critical care time was [31] minutes without overlap. Time includes spent on [x] Data Review and interpretation [x] Patient assessment and monitoring of vital signs [x] Documentation [x] Medication orders and management Subjective Date of service: 01/26/20 Principal diagnosis: Ac hypoxemic resp failure; Pneumonia; PUI COVID-19; CHF; COPD; HTN Interval history: Patient is seen today for: Acute hypoxemic respiratory failure; [place]. Pneumonia (CAP); PUI COVID-19 infection; AE-CHF; AE-COPD; H/O CVA; HTN Seen and examined at bedside; 24 hour events reviewed; nursing and respiratory care staff consulted; no adverse overnight events reported to me; resting peacefully in bed; tolerated t-piece till late last [id number] but decompensated and placed on MVS; back on t-piece now; No N/V/F/C; secretions moderate today Objective Vital Signs - 12hr 01/25/20 01/25/20 01/25/20 20:48 20:52 21:00 Temperature Pulse Rate 92 H 92 H Pulse Rate [ From Monitor] Respiratory 21 Rate Blood Pressure 113/76 103/79 O2 Sat by Pulse 92 92 94 Oximetry O2 Sat by Pulse Oximetry [ Assessment] 01/25/20 01/25/20 01/25/20 22:00 23:00 23:10 Temperature Pulse Rate 92 H 98 H 97 H Pulse Rate [ From Monitor] Respiratory 27 H 27 H 25 H Rate Blood Pressure 115/88 115/88 106/94 O2 Sat by Pulse 92 91 97 Oximetry O2 Sat by Pulse Oximetry [ Assessment] 01/25/20 01/26/20 01/26/20 23:51 00:00 00:21 Temperature 98.8 F Pulse Rate 97 H 103 H Pulse Rate [ 100 H From Monitor] Respiratory 21 Rate Blood Pressure 106/94 108/90 O2 Sat by Pulse 89 Oximetry O2 Sat by Pulse Oximetry [ Assessment] 01/26/20 01/26/20 01/26/20 00:45 01:00 02:00 Temperature Pulse Rate 93 H 92 H 93 H Pulse Rate [ From Monitor] Respiratory 26 H 33 H Rate Blood Pressure 108/90 128/80 133/79 O2 Sat by Pulse 98 97 97 Oximetry O2 Sat by Pulse Oximetry [ Assessment] 01/26/20 01/26/20 01/26/20 03:00 03:47 04:00 Temperature 98.8 F Pulse Rate 99 H 97 H Pulse Rate [ 97 H From Monitor] Respiratory 29 H 30 H Rate Blood Pressure 138/87 113/82 O2 Sat by Pulse 96 94 Oximetry O2 Sat by Pulse Oximetry [ Assessment] 01/26/20 01/26/20 01/26/20 04:54 04:55 05:00 Temperature Pulse Rate 95 H 95 H Pulse Rate [ From Monitor] Respiratory 19 Rate Blood Pressure 113/82 114/80 O2 Sat by Pulse 97 97 Oximetry O2 Sat by Pulse 97 Oximetry [ Assessment] 01/26/20 01/26/20 01/26/20 05:33 06:00 06:06 Temperature Pulse Rate 97 H 98 H 99 H Pulse Rate [ From Monitor] Respiratory 47 H Rate Blood Pressure 114/80 117/85 117/85 O2 Sat by Pulse 96 Oximetry O2 Sat by Pulse Oximetry [ Assessment] 01/26/20 01/26/20 01/26/20 07:00 08:00 08:17 Temperature 97.6 F Pulse Rate 93 H 93 H Pulse Rate [ 94 H From Monitor] Respiratory 22 18 Rate Blood Pressure 115/79 106/78 O2 Sat by Pulse 96 95 Oximetry O2 Sat by Pulse 96 Oximetry [ Assessment] Constitutional: no acute distress, other (elelelderly and obese male, normocephalic with mildly increased respiratory effort at rest) Eyes: non-icteric ENT: oropharynx moist, other (trach to MVS, mooderate tracheal secretions) Neck: supple, no JVD Effort: mildly labored Ascultation: Bilateral: clear, diminished breath sounds, rhonchi, other (+ secretions) Percussion: Bilateral: not dull Cardiovascular: irregular rhythm, other (S1,S2) Gastrointestinal: normoactive bowel sounds, soft, non-tender, non-distended (protuberant), other (protuberant; PEG in place) Integumentary: normal Extremities: no cyanosis, pulses normal, no ischemia or petechiae, edema (bilateral upper ) Neurologic: non-focal exam (moves extremities), pupils equal and round, CN II- XII normal, motor strength normal and (moves all extremities) Psychiatric: mood appropriate, affect normal CBC and BMP: 01/26/20 03:20 01/25/20 04:25 ABG, PT/INR, D-dimer: ABG ABG pH 7.447 pH Units (7.350-7.450) 01/25/20 21:02 POC ABG pCO2 45.6 mmHg (32.0-48.0) 01/12/20 13:58 ABG pCO2 47.0 mm Hg 01/25/20 21:02 POC ABG pO2 76.6 mmHg (83-108) L 01/12/20 13:58 ABG pO2 57.5 mm Hg (80.0-90.0) L 01/25/20 21:02 POC ABG HCO3 31.2 01/12/20 13:58 ABG O2 Saturation 90.3 % (95.0-99.0) L 01/25/20 21:02 PT/INR, D-dimer PT 16.9 Sec. (12.2-14.9) H 01/22/20 09:58 INR 1.34 (0.87-1.13) H 01/22/20 09:58 Abnormal lab findings: Abnormal Labs 11/24/19 11/24/19 11/24/19 02:53 02:53 03:45 WBC 14.3 H RBC Hgb Hct MCHC RDW 17.2 H MCV MCH Lymph % (Auto) [place] % (Auto) [place] # Eos # Lymph # (Auto) [place] # (Auto) Eos # (Auto) Seg Neutrophils % Seg Neuts % (Manual) Baso # (Auto) Lymphocytes % (Manual) Monocytes % (Manual) Eosinophils % (Manual) Basophils % (Manual) Seg Neutrophils # Seg Neutrophils # Man 8.3 H Lymphocytes # (Manual) Monocytes # (Manual) 0.9 H Eosinophils # (Manual) Nucleated RBC % Basophils # (Manual) PT INR APTT Heparin Anti-Xa Level ABG pH 7.313 L POC ABG pO2 ABG pO2 102.8 H ABG HCO3 ABG O2 Saturation ABG Base Excess -2.9 L POC ABG pCO2 ABG Hemoglobin ABG Oxyhemoglobin ABG Glucose Oxyhemoglobin 93.9 L Sodium Potassium Chloride Carbon Dioxide BUN Creatinine Glucose 195 H POC Glucose Lactic Acid Calcium Phosphorus Magnesium AST ALT Lactate Dehydrogenase CK-MB (CK-2) 4.3 H C-Reactive Protein NT-Pro-B Natriuret Pep 1181 H Total Protein Albumin Arterial Blood Glucose Urine WBC (Auto) 11/24/19 11/24/19 11/24/19 04:53 04:53 10:37 WBC RBC Hgb Hct MCHC RDW MCV MCH Lymph % (Auto) [place] % (Auto) [place] # Eos # Lymph # (Auto) [place] # (Auto) Eos # (Auto) Seg Neutrophils % Seg Neuts % (Manual) Baso # (Auto) Lymphocytes % (Manual) Monocytes % (Manual) Eosinophils % (Manual) Basophils % (Manual) Seg Neutrophils # Seg Neutrophils # Man Lymphocytes # (Manual) Monocytes # (Manual) Eosinophils # (Manual) Nucleated RBC % Basophils # (Manual) PT INR APTT Heparin Anti-Xa Level ABG pH POC ABG pO2 ABG pO2 ABG HCO3 ABG O2 Saturation ABG Base Excess POC ABG pCO2 ABG Hemoglobin ABG Oxyhemoglobin ABG Glucose Oxyhemoglobin Sodium Potassium Chloride Carbon Dioxide BUN Creatinine Glucose 162 H POC Glucose Lactic Acid 2.40 H* 2.50 H* Calcium Phosphorus Magnesium AST ALT Lactate Dehydrogenase 240 H CK-MB (CK-2) C-Reactive Protein NT-Pro-B Natriuret Pep Total Protein Albumin Arterial Blood Glucose Urine WBC (Auto) 11/24/19 11/24/19 11/24/19 12:21 14:50 19:54 WBC RBC Hgb Hct MCHC RDW MCV MCH Lymph % (Auto) [place] % (Auto) [place] # Eos # Lymph # (Auto) [place] # (Auto) Eos # (Auto) Seg Neutrophils % Seg Neuts % (Manual) Baso # (Auto) Lymphocytes % (Manual) Monocytes % (Manual) Eosinophils % (Manual) Basophils % (Manual) Seg Neutrophils # Seg Neutrophils # Man Lymphocytes # (Manual) Monocytes # (Manual) Eosinophils # (Manual) Nucleated RBC % Basophils # (Manual) PT INR APTT Heparin Anti-Xa Level ABG pH POC ABG pO2 ABG pO2 ABG HCO3 ABG O2 Saturation ABG Base Excess POC ABG pCO2 ABG Hemoglobin ABG Oxyhemoglobin ABG Glucose Oxyhemoglobin Sodium Potassium Chloride Carbon Dioxide BUN Creatinine Glucose POC Glucose 145 H 143 H 124 H Lactic Acid Calcium Phosphorus Magnesium AST ALT Lactate Dehydrogenase CK-MB (CK-2) C-Reactive Protein NT-Pro-B Natriuret Pep Total Protein Albumin Arterial Blood Glucose Urine WBC (Auto) 11/25/19 11/25/19 11/25/19 00:18 03:18 05:11 WBC 13.7 H RBC Hgb Hct MCHC RDW 17.1 H MCV MCH Lymph % (Auto) 10.8 L [place] % (Auto) 8.7 H [place] # 1.2 H Eos # Lymph # (Auto) [place] # (Auto) Eos # (Auto) Seg Neutrophils % 80.2 H Seg Neuts % (Manual) Baso # (Auto) Lymphocytes % (Manual) Monocytes % (Manual) Eosinophils % (Manual) Basophils % (Manual) Seg Neutrophils # 11.0 H Seg Neutrophils # Man Lymphocytes # (Manual) Monocytes # (Manual) Eosinophils # (Manual) Nucleated RBC % Basophils # (Manual) PT INR APTT Heparin Anti-Xa Level ABG pH 7.333 L POC ABG pO2 ABG pO2 61.2 L ABG HCO3 ABG O2 Saturation 90.2 L ABG Base Excess POC ABG pCO2 ABG Hemoglobin 13.7 L ABG Oxyhemoglobin ABG Glucose Oxyhemoglobin 88.2 L Sodium Potassium Chloride Carbon Dioxide BUN Creatinine Glucose POC Glucose 109 H Lactic Acid Calcium Phosphorus Magnesium AST ALT Lactate Dehydrogenase CK-MB (CK-2) C-Reactive Protein NT-Pro-B Natriuret Pep Total Protein Albumin Arterial Blood Glucose Urine WBC (Auto) 11/25/19 11/25/19 11/26/19 05:11 11:40 03:12 WBC RBC Hgb Hct MCHC RDW MCV MCH Lymph % (Auto) [place] % (Auto) [place] # Eos # Lymph # (Auto) [place] # (Auto) Eos # (Auto) Seg Neutrophils % Seg Neuts % (Manual) Baso # (Auto) Lymphocytes % (Manual) Monocytes % (Manual) Eosinophils % (Manual) Basophils % (Manual) Seg Neutrophils # Seg Neutrophils # Man Lymphocytes # (Manual) Monocytes # (Manual) Eosinophils # (Manual) Nucleated RBC % Basophils # (Manual) PT INR APTT Heparin Anti-Xa Level ABG pH POC ABG pO2 ABG pO2 155.1 H ABG HCO3 27.8 H ABG O2 Saturation ABG Base Excess POC ABG pCO2 ABG Hemoglobin 12.2 L ABG Oxyhemoglobin ABG Glucose Oxyhemoglobin Sodium Potassium Chloride Carbon Dioxide BUN 23 H Creatinine Glucose 110 H POC Glucose 108 H Lactic Acid Calcium Phosphorus Magnesium AST ALT Lactate Dehydrogenase CK-MB (CK-2) C-Reactive Protein NT-Pro-B Natriuret Pep Total Protein Albumin Arterial Blood Glucose Urine WBC (Auto) 11/26/19 11/26/19 11/26/19 06:17 10:43 10:43 WBC 11.4 H RBC Hgb Hct MCHC RDW 17.1 H MCV MCH Lymph % (Auto) [place] % (Auto) [place] # Eos # Lymph # (Auto) [place] # (Auto) Eos # (Auto) Seg Neutrophils % Seg Neuts % (Manual) Baso # (Auto) Lymphocytes % (Manual) Monocytes % (Manual) Eosinophils % (Manual) Basophils % (Manual) Seg Neutrophils # Seg Neutrophils # Man Lymphocytes # (Manual) Monocytes # (Manual) Eosinophils # (Manual) Nucleated RBC % Basophils # (Manual) PT INR APTT Heparin Anti-Xa Level ABG pH POC ABG pO2 ABG pO2 ABG HCO3 ABG O2 Saturation ABG Base Excess POC ABG pCO2 ABG Hemoglobin ABG Oxyhemoglobin ABG Glucose Oxyhemoglobin Sodium Potassium Chloride Carbon Dioxide BUN 29 H Creatinine Glucose POC Glucose 107 H Lactic Acid Calcium Phosphorus Magnesium AST ALT Lactate Dehydrogenase CK-MB (CK-2) C-Reactive Protein NT-Pro-B Natriuret Pep Total Protein Albumin Arterial Blood Glucose Urine WBC (Auto) 11/26/19 11/27/19 11/27/19 17:11 01:53 04:11 WBC RBC Hgb Hct MCHC RDW MCV MCH Lymph % (Auto) [place] % (Auto) [place] # Eos # Lymph # (Auto) [place] # (Auto) Eos # (Auto) Seg Neutrophils % Seg Neuts % (Manual) Baso # (Auto) Lymphocytes % (Manual) Monocytes % (Manual) Eosinophils % (Manual) Basophils % (Manual) Seg Neutrophils # Seg Neutrophils # Man Lymphocytes # (Manual) Monocytes # (Manual) Eosinophils # (Manual) Nucleated RBC % Basophils # (Manual) PT INR APTT Heparin Anti-Xa Level ABG pH POC ABG pO2 ABG pO2 ABG HCO3 29.2 H ABG O2 Saturation ABG Base Excess 3.4 H POC ABG pCO2 ABG Hemoglobin 13.3 L ABG Oxyhemoglobin ABG Glucose Oxyhemoglobin 94.5 L Sodium Potassium Chloride Carbon Dioxide BUN Creatinine Glucose POC Glucose 113 H 108 H Lactic Acid Calcium Phosphorus Magnesium AST ALT Lactate Dehydrogenase CK-MB (CK-2) C-Reactive Protein NT-Pro-B Natriuret Pep Total Protein Albumin Arterial Blood Glucose Urine WBC (Auto) 11/27/19 11/28/19 11/28/19 05:27 05:00 05:25 WBC RBC Hgb Hct MCHC RDW MCV MCH Lymph % (Auto) [place] % (Auto) [place] # Eos # Lymph # (Auto) [place] # (Auto) Eos # (Auto) Seg Neutrophils % Seg Neuts % (Manual) Baso # (Auto) Lymphocytes % (Manual) Monocytes % (Manual) Eosinophils % (Manual) Basophils % (Manual) Seg Neutrophils # Seg Neutrophils # Man Lymphocytes # (Manual) Monocytes # (Manual) Eosinophils # (Manual) Nucleated RBC % Basophils # (Manual) PT INR APTT Heparin Anti-Xa Level ABG pH POC ABG pO2 68.1 L ABG pO2 ABG HCO3 ABG O2 Saturation ABG Base Excess POC ABG pCO2 ABG Hemoglobin ABG Oxyhemoglobin 91.2 L ABG Glucose Oxyhemoglobin Sodium Potassium Chloride Carbon Dioxide BUN Creatinine Glucose POC Glucose 111 H 110 H Lactic Acid Calcium Phosphorus Magnesium AST ALT Lactate Dehydrogenase CK-MB (CK-2) C-Reactive Protein NT-Pro-B Natriuret Pep Total Protein Albumin Arterial Blood Glucose Urine WBC (Auto) 11/28/19 11/28/19 11/28/19 12:08 13:47 13:47 WBC 11.3 H RBC Hgb Hct MCHC RDW 16.1 H MCV MCH Lymph % (Auto) [place] % (Auto) 9.9 H [place] # 1.1 H Eos # Lymph # (Auto) [place] # (Auto) Eos # (Auto) Seg Neutrophils % 71.4 H Seg Neuts % (Manual) Baso # (Auto) Lymphocytes % (Manual) Monocytes % (Manual) Eosinophils % (Manual) Basophils % (Manual) Seg Neutrophils # 8.1 H Seg Neutrophils # Man Lymphocytes # (Manual) Monocytes # (Manual) Eosinophils # (Manual) Nucleated RBC % Basophils # (Manual) PT INR APTT Heparin Anti-Xa Level ABG pH POC ABG pO2 ABG pO2 ABG HCO3 ABG O2 Saturation ABG Base Excess POC ABG pCO2 ABG Hemoglobin ABG Oxyhemoglobin ABG Glucose Oxyhemoglobin Sodium Potassium Chloride Carbon Dioxide BUN 23 H Creatinine Glucose 123 H POC Glucose 112 H Lactic Acid Calcium Phosphorus Magnesium AST ALT Lactate Dehydrogenase CK-MB (CK-2) C-Reactive Protein NT-Pro-B Natriuret Pep Total Protein Albumin 3.7 L Arterial Blood Glucose Urine WBC (Auto) 11/28/19 11/29/19 11/29/19 17:26 03:55 17:04 WBC RBC Hgb Hct MCHC RDW MCV MCH Lymph % (Auto) [place] % (Auto) [place] # Eos # Lymph # (Auto) [place] # (Auto) Eos # (Auto) Seg Neutrophils % Seg Neuts % (Manual) Baso # (Auto) Lymphocytes % (Manual) Monocytes % (Manual) Eosinophils % (Manual) Basophils % (Manual) Seg Neutrophils # Seg Neutrophils # Man Lymphocytes # (Manual) Monocytes # (Manual) Eosinophils # (Manual) Nucleated RBC % Basophils # (Manual) PT INR APTT Heparin Anti-Xa Level ABG pH POC ABG pO2 ABG pO2 65.7 L ABG HCO3 28.3 H ABG O2 Saturation 93.9 L ABG Base Excess 3.6 H POC ABG pCO2 ABG Hemoglobin 13.3 L ABG Oxyhemoglobin ABG Glucose Oxyhemoglobin 91.5 L Sodium Potassium Chloride Carbon Dioxide BUN Creatinine Glucose POC Glucose 123 H 119 H Lactic Acid Calcium Phosphorus Magnesium AST ALT Lactate Dehydrogenase CK-MB (CK-2) C-Reactive Protein NT-Pro-B Natriuret Pep Total Protein Albumin Arterial Blood Glucose Urine WBC (Auto) 11/30/19 11/30/19 11/30/19 04:17 04:17 04:56 WBC 13.4 H RBC Hgb Hct MCHC RDW 15.6 H MCV MCH Lymph % (Auto) [place] % (Auto) [place] # Eos # Lymph # (Auto) [place] # (Auto) Eos # (Auto) Seg Neutrophils % Seg Neuts % (Manual) Baso # (Auto) Lymphocytes % (Manual) Monocytes % (Manual) Eosinophils % (Manual) Basophils % (Manual) Seg Neutrophils # Seg Neutrophils # Man Lymphocytes # (Manual) Monocytes # (Manual) Eosinophils # (Manual) Nucleated RBC % Basophils # (Manual) PT INR APTT Heparin Anti-Xa Level ABG pH POC ABG pO2 ABG pO2 56.3 L ABG HCO3 29.3 H ABG O2 Saturation 91.5 L ABG Base Excess 4.7 H POC ABG pCO2 ABG Hemoglobin 12.1 L ABG Oxyhemoglobin ABG Glucose Oxyhemoglobin 89.2 L Sodium 147 H Potassium Chloride Carbon Dioxide BUN 30 H Creatinine Glucose 124 H POC Glucose Lactic Acid Calcium Phosphorus Magnesium AST ALT Lactate Dehydrogenase CK-MB (CK-2) C-Reactive Protein NT-Pro-B Natriuret Pep Total Protein Albumin 3.8 L Arterial Blood Glucose Urine WBC (Auto) 11/30/19 11/30/19 11/30/19 05:51 11:54 18:17 WBC RBC Hgb Hct MCHC RDW MCV MCH Lymph % (Auto) [place] % (Auto) [place] # Eos # Lymph # (Auto) [place] # (Auto) Eos # (Auto) Seg Neutrophils % Seg Neuts % (Manual) Baso # (Auto) Lymphocytes % (Manual) Monocytes % (Manual) Eosinophils % (Manual) Basophils % (Manual) Seg Neutrophils # Seg Neutrophils # Man Lymphocytes # (Manual) Monocytes # (Manual) Eosinophils # (Manual) Nucleated RBC % Basophils # (Manual) PT INR APTT Heparin Anti-Xa Level ABG pH POC ABG pO2 ABG pO2 ABG HCO3 ABG O2 Saturation ABG Base Excess POC ABG pCO2 ABG Hemoglobin ABG Oxyhemoglobin ABG Glucose Oxyhemoglobin Sodium Potassium Chloride Carbon Dioxide BUN Creatinine Glucose POC Glucose 127 H 115 H 143 H Lactic Acid Calcium Phosphorus Magnesium AST ALT Lactate Dehydrogenase CK-MB (CK-2) C-Reactive Protein NT-Pro-B Natriuret Pep Total Protein Albumin Arterial Blood Glucose Urine WBC (Auto) 12/01/19 12/01/19 12/01/19 01:18 05:22 12:16 WBC RBC Hgb Hct MCHC RDW MCV MCH Lymph % (Auto) [place] % (Auto) [place] # Eos # Lymph # (Auto) [place] # (Auto) Eos # (Auto) Seg Neutrophils % Seg Neuts % (Manual) Baso # (Auto) Lymphocytes % (Manual) Monocytes % (Manual) Eosinophils % (Manual) Basophils % (Manual) Seg Neutrophils # Seg Neutrophils # Man Lymphocytes # (Manual) Monocytes # (Manual) Eosinophils # (Manual) Nucleated RBC % Basophils # (Manual) PT INR APTT Heparin Anti-Xa Level ABG pH POC ABG pO2 ABG pO2 ABG HCO3 ABG O2 Saturation ABG Base Excess POC ABG pCO2 ABG Hemoglobin ABG Oxyhemoglobin ABG Glucose Oxyhemoglobin Sodium Potassium 3.5 L Chloride 107.8 H Carbon Dioxide BUN 37 H Creatinine Glucose 157 H POC Glucose 118 H 148 H Lactic Acid Calcium 8.2 L D Phosphorus Magnesium AST 48 H ALT 60 H Lactate Dehydrogenase 194 H CK-MB (CK-2) C-Reactive Protein 8.50 H NT-Pro-B Natriuret Pep Total Protein 5.5 L Albumin 2.8 L Arterial Blood Glucose Urine WBC (Auto) 12/01/19 12/02/19 12/02/19 18:04 00:05 05:16 WBC 11.4 H RBC Hgb Hct MCHC RDW 15.9 H MCV MCH Lymph % (Auto) [place] % (Auto) 9.9 H [place] # 1.1 H Eos # Lymph # (Auto) [place] # (Auto) Eos # (Auto) Seg Neutrophils % 70.3 H Seg Neuts % (Manual) Baso # (Auto) Lymphocytes % (Manual) Monocytes % (Manual) Eosinophils % (Manual) Basophils % (Manual) Seg Neutrophils # 8.0 H Seg Neutrophils # Man Lymphocytes # (Manual) Monocytes # (Manual) Eosinophils # (Manual) Nucleated RBC % Basophils # (Manual) PT INR APTT Heparin Anti-Xa Level ABG pH POC ABG pO2 ABG pO2 ABG HCO3 ABG O2 Saturation ABG Base Excess POC ABG pCO2 ABG Hemoglobin ABG Oxyhemoglobin ABG Glucose Oxyhemoglobin Sodium Potassium Chloride Carbon Dioxide BUN Creatinine Glucose POC Glucose 143 H 107 H Lactic Acid Calcium Phosphorus Magnesium AST ALT Lactate Dehydrogenase CK-MB (CK-2) C-Reactive Protein NT-Pro-B Natriuret Pep Total Protein Albumin Arterial Blood Glucose Urine WBC (Auto) 12/02/19 12/02/19 12/02/19 05:16 06:03 11:52 WBC RBC Hgb Hct MCHC RDW MCV MCH Lymph % (Auto) [place] % (Auto) [place] # Eos # Lymph # (Auto) [place] # (Auto) Eos # (Auto) Seg Neutrophils % Seg Neuts % (Manual) Baso # (Auto) Lymphocytes % (Manual) Monocytes % (Manual) Eosinophils % (Manual) Basophils % (Manual) Seg Neutrophils # Seg Neutrophils # Man Lymphocytes # (Manual) Monocytes # (Manual) Eosinophils # (Manual) Nucleated RBC % Basophils # (Manual) PT INR APTT Heparin Anti-Xa Level ABG pH POC ABG pO2 ABG pO2 ABG HCO3 ABG O2 Saturation ABG Base Excess POC ABG pCO2 ABG Hemoglobin ABG Oxyhemoglobin ABG Glucose Oxyhemoglobin Sodium 146 H Potassium Chloride Carbon Dioxide BUN 28 H Creatinine Glucose 123 H POC Glucose 110 H 152 H Lactic Acid Calcium Phosphorus Magnesium AST ALT Lactate Dehydrogenase CK-MB (CK-2) C-Reactive Protein NT-Pro-B Natriuret Pep Total Protein Albumin Arterial Blood Glucose Urine WBC (Auto) 12/02/19 12/02/19 12/02/19 12:58 17:58 23:36 WBC RBC Hgb Hct MCHC RDW MCV MCH Lymph % (Auto) [place] % (Auto) [place] # Eos # Lymph # (Auto) [place] # (Auto) Eos # (Auto) Seg Neutrophils % Seg Neuts % (Manual) Baso # (Auto) Lymphocytes % (Manual) Monocytes % (Manual) Eosinophils % (Manual) Basophils % (Manual) Seg Neutrophils # Seg Neutrophils # Man Lymphocytes # (Manual) Monocytes # (Manual) Eosinophils # (Manual) Nucleated RBC % Basophils # (Manual) PT INR APTT Heparin Anti-Xa Level ABG pH POC ABG pO2 78.1 L ABG pO2 ABG HCO3 ABG O2 Saturation ABG Base Excess POC ABG pCO2 ABG Hemoglobin ABG Oxyhemoglobin ABG Glucose Oxyhemoglobin Sodium Potassium Chloride Carbon Dioxide BUN Creatinine Glucose POC Glucose 120 H 123 H Lactic Acid Calcium Phosphorus Magnesium AST ALT Lactate Dehydrogenase CK-MB (CK-2) C-Reactive Protein NT-Pro-B Natriuret Pep Total Protein Albumin Arterial Blood Glucose Urine WBC (Auto) 12/03/19 12/03/19 12/03/19 06:03 06:14 11:46 WBC RBC Hgb Hct MCHC RDW MCV MCH Lymph % (Auto) [place] % (Auto) [place] # Eos # Lymph # (Auto) [place] # (Auto) Eos # (Auto) Seg Neutrophils % Seg Neuts % (Manual) Baso # (Auto) Lymphocytes % (Manual) Monocytes % (Manual) Eosinophils % (Manual) Basophils % (Manual) Seg Neutrophils # Seg Neutrophils # Man Lymphocytes # (Manual) Monocytes # (Manual) Eosinophils # (Manual) Nucleated RBC % Basophils # (Manual) PT INR APTT Heparin Anti-Xa Level ABG pH POC ABG pO2 ABG pO2 ABG HCO3 ABG O2 Saturation ABG Base Excess POC ABG pCO2 ABG Hemoglobin ABG Oxyhemoglobin ABG Glucose Oxyhemoglobin Sodium Potassium Chloride Carbon Dioxide BUN Creatinine Glucose POC Glucose 142 H 130 H Lactic Acid Calcium Phosphorus Magnesium AST ALT Lactate Dehydrogenase CK-MB (CK-2) C-Reactive Protein NT-Pro-B Natriuret Pep Total Protein Albumin Arterial Blood Glucose Urine WBC (Auto) 8.0 H 12/03/19 12/03/19 12/04/19 15:50 17:39 00:04 WBC RBC Hgb Hct MCHC RDW MCV MCH Lymph % (Auto) [place] % (Auto) [place] # Eos # Lymph # (Auto) [place] # (Auto) Eos # (Auto) Seg Neutrophils % Seg Neuts % (Manual) Baso # (Auto) Lymphocytes % (Manual) Monocytes % (Manual) Eosinophils % (Manual) Basophils % (Manual) Seg Neutrophils # Seg Neutrophils # Man Lymphocytes # (Manual) Monocytes # (Manual) Eosinophils # (Manual) Nucleated RBC % Basophils # (Manual) PT INR APTT Heparin Anti-Xa Level ABG pH POC ABG pO2 ABG pO2 ABG HCO3 ABG O2 Saturation ABG Base Excess POC ABG pCO2 ABG Hemoglobin ABG Oxyhemoglobin ABG Glucose Oxyhemoglobin Sodium Potassium Chloride Carbon Dioxide BUN Creatinine Glucose POC Glucose 146 H 133 H Lactic Acid Calcium Phosphorus 2.40 L Magnesium AST ALT Lactate Dehydrogenase CK-MB (CK-2) C-Reactive Protein NT-Pro-B Natriuret Pep Total Protein Albumin Arterial Blood Glucose Urine WBC (Auto) 12/04/19 12/04/19 12/04/19 03:58 03:58 05:22 WBC 12.5 H RBC Hgb 11.2 L Hct 35.2 L MCHC RDW 16.0 H MCV MCH Lymph % (Auto) [place] % (Auto) 9.6 H [place] # 1.2 H Eos # 0.5 H Lymph # (Auto) [place] # (Auto) Eos # (Auto) Seg Neutrophils % Seg Neuts % (Manual) Baso # (Auto) Lymphocytes % (Manual) Monocytes % (Manual) Eosinophils % (Manual) Basophils % (Manual) Seg Neutrophils # 8.6 H Seg Neutrophils # Man Lymphocytes # (Manual) Monocytes # (Manual) Eosinophils # (Manual) Nucleated RBC % Basophils # (Manual) PT INR APTT Heparin Anti-Xa Level ABG pH POC ABG pO2 ABG pO2 ABG HCO3 ABG O2 Saturation ABG Base Excess POC ABG pCO2 ABG Hemoglobin ABG Oxyhemoglobin ABG Glucose Oxyhemoglobin Sodium 146 H Potassium Chloride 108.6 H Carbon Dioxide BUN 30 H Creatinine 0.7 L Glucose 121 H POC Glucose 132 H Lactic Acid Calcium Phosphorus Magnesium AST ALT Lactate Dehydrogenase CK-MB (CK-2) C-Reactive Protein NT-Pro-B Natriuret Pep Total Protein Albumin Arterial Blood Glucose Urine WBC (Auto) 12/04/19 12/04/19 12/05/19 13:26 18:43 00:19 WBC RBC Hgb Hct MCHC RDW MCV MCH Lymph % (Auto) [place] % (Auto) [place] # Eos # Lymph # (Auto) [place] # (Auto) Eos # (Auto) Seg Neutrophils % Seg Neuts % (Manual) Baso # (Auto) Lymphocytes % (Manual) Monocytes % (Manual) Eosinophils % (Manual) Basophils % (Manual) Seg Neutrophils # Seg Neutrophils # Man Lymphocytes # (Manual) Monocytes # (Manual) Eosinophils # (Manual) Nucleated RBC % Basophils # (Manual) PT INR APTT Heparin Anti-Xa Level ABG pH POC ABG pO2 ABG pO2 ABG HCO3 ABG O2 Saturation ABG Base Excess POC ABG pCO2 ABG Hemoglobin ABG Oxyhemoglobin ABG Glucose Oxyhemoglobin Sodium Potassium Chloride Carbon Dioxide BUN Creatinine Glucose POC Glucose 185 H 156 H 150 H Lactic Acid Calcium Phosphorus Magnesium AST ALT Lactate Dehydrogenase CK-MB (CK-2) C-Reactive Protein NT-Pro-B Natriuret Pep Total Protein Albumin Arterial Blood Glucose Urine WBC (Auto) 12/05/19 12/05/19 12/05/19 03:37 03:37 05:14 WBC 16.3 H RBC Hgb 11.4 L Hct MCHC RDW 15.6 H MCV MCH Lymph % (Auto) 9.9 L [place] % (Auto) 9.7 H [place] # 1.6 H Eos # Lymph # (Auto) [place] # (Auto) Eos # (Auto) Seg Neutrophils % 78.0 H Seg Neuts % (Manual) Baso # (Auto) Lymphocytes % (Manual) Monocytes % (Manual) Eosinophils % (Manual) Basophils % (Manual) Seg Neutrophils # 12.7 H Seg Neutrophils # Man Lymphocytes # (Manual) Monocytes # (Manual) Eosinophils # (Manual) Nucleated RBC % Basophils # (Manual) PT INR APTT Heparin Anti-Xa Level ABG pH POC ABG pO2 ABG pO2 ABG HCO3 ABG O2 Saturation ABG Base Excess POC ABG pCO2 ABG Hemoglobin ABG Oxyhemoglobin ABG Glucose Oxyhemoglobin Sodium 146 H Potassium Chloride 107.2 H Carbon Dioxide BUN 27 H Creatinine 0.7 L Glucose 171 H POC Glucose 168 H Lactic Acid Calcium Phosphorus Magnesium AST ALT Lactate Dehydrogenase CK-MB (CK-2) C-Reactive Protein NT-Pro-B Natriuret Pep Total Protein Albumin Arterial Blood Glucose Urine WBC (Auto) 12/05/19 12/05/19 12/05/19 12:31 18:10 23:58 WBC RBC Hgb Hct MCHC RDW MCV MCH Lymph % (Auto) [place] % (Auto) [place] # Eos # Lymph # (Auto) [place] # (Auto) Eos # (Auto) Seg Neutrophils % Seg Neuts % (Manual) Baso # (Auto) Lymphocytes % (Manual) Monocytes % (Manual) Eosinophils % (Manual) Basophils % (Manual) Seg Neutrophils # Seg Neutrophils # Man Lymphocytes # (Manual) Monocytes # (Manual) Eosinophils # (Manual) Nucleated RBC % Basophils # (Manual) PT INR APTT Heparin Anti-Xa Level ABG pH POC ABG pO2 ABG pO2 ABG HCO3 ABG O2 Saturation ABG Base Excess POC ABG pCO2 ABG Hemoglobin ABG Oxyhemoglobin ABG Glucose Oxyhemoglobin Sodium Potassium Chloride Carbon Dioxide BUN Creatinine Glucose POC Glucose 159 H 198 H 115 H Lactic Acid Calcium Phosphorus Magnesium AST ALT Lactate Dehydrogenase CK-MB (CK-2) C-Reactive Protein NT-Pro-B Natriuret Pep Total Protein Albumin Arterial Blood Glucose Urine WBC (Auto) 12/06/19 12/06/19 12/06/19 05:24 05:24 05:25 WBC 14.9 H RBC Hgb 10.8 L Hct 34.0 L MCHC RDW 15.6 H MCV MCH Lymph % (Auto) 10.7 L [place] % (Auto) 8.3 H [place] # 1.2 H Eos # Lymph # (Auto) [place] # (Auto) Eos # (Auto) Seg Neutrophils % 78.7 H Seg Neuts % (Manual) Baso # (Auto) Lymphocytes % (Manual) Monocytes % (Manual) Eosinophils % (Manual) Basophils % (Manual) Seg Neutrophils # 11.7 H Seg Neutrophils # Man Lymphocytes # (Manual) Monocytes # (Manual) Eosinophils # (Manual) Nucleated RBC % Basophils # (Manual) PT INR APTT Heparin Anti-Xa Level ABG pH POC ABG pO2 ABG pO2 ABG HCO3 ABG O2 Saturation ABG Base Excess POC ABG pCO2 ABG Hemoglobin ABG Oxyhemoglobin ABG Glucose Oxyhemoglobin Sodium 148 H Potassium 5.1 H Chloride 107.6 H Carbon Dioxide BUN 27 H Creatinine 0.7 L Glucose 155 H POC Glucose 157 H Lactic Acid Calcium Phosphorus Magnesium AST ALT Lactate Dehydrogenase CK-MB (CK-2) C-Reactive Protein NT-Pro-B Natriuret Pep Total Protein Albumin Arterial Blood Glucose Urine WBC (Auto) 09/12/07/19 12/07/19 00:13 05:34 11:33 WBC RBC Hgb Hct MCHC RDW MCV MCH Lymph % (Auto) [place] % (Auto) [place] # Eos # Lymph # (Auto) [place] # (Auto) Eos # (Auto) Seg Neutrophils % Seg Neuts % (Manual) Baso # (Auto) Lymphocytes % (Manual) Monocytes % (Manual) Eosinophils % (Manual) Basophils % (Manual) Seg Neutrophils # Seg Neutrophils # Man Lymphocytes # (Manual) Monocytes # (Manual) Eosinophils # (Manual) Nucleated RBC % Basophils # (Manual) PT INR APTT Heparin Anti-Xa Level ABG pH POC ABG pO2 ABG pO2 ABG HCO3 ABG O2 Saturation ABG Base Excess POC ABG pCO2 ABG Hemoglobin ABG Oxyhemoglobin ABG Glucose Oxyhemoglobin Sodium Potassium Chloride Carbon Dioxide BUN Creatinine Glucose POC Glucose 142 H 111 H 169 H Lactic Acid Calcium Phosphorus Magnesium AST ALT Lactate Dehydrogenase CK-MB (CK-2) C-Reactive Protein NT-Pro-B Natriuret Pep Total Protein Albumin Arterial Blood Glucose Urine WBC (Auto) 12/07/19 12/07/19 12/07/19 12:41 13:25 18:19 WBC 12.4 H RBC 3.53 L Hgb 10.2 L Hct 32.1 L MCHC RDW 15.3 H MCV MCH Lymph % (Auto) 10.6 L [place] % (Auto) 7.8 H [place] # 1.0 H Eos # Lymph # (Auto) [place] # (Auto) Eos # (Auto) Seg Neutrophils % 77.6 H Seg Neuts % (Manual) Baso # (Auto) Lymphocytes % (Manual) Monocytes % (Manual) Eosinophils % (Manual) Basophils % (Manual) Seg Neutrophils # 9.6 H Seg Neutrophils # Man Lymphocytes # (Manual) Monocytes # (Manual) Eosinophils # (Manual) Nucleated RBC % Basophils # (Manual) PT INR APTT Heparin Anti-Xa Level ABG pH POC ABG pO2 ABG pO2 ABG HCO3 ABG O2 Saturation ABG Base Excess POC ABG pCO2 ABG Hemoglobin ABG Oxyhemoglobin ABG Glucose Oxyhemoglobin Sodium 149 H Potassium Chloride 108.4 H Carbon Dioxide BUN 26 H Creatinine 0.6 L Glucose 149 H POC Glucose 164 H Lactic Acid Calcium Phosphorus Magnesium 2.60 H AST 121 H ALT 145 H Lactate Dehydrogenase CK-MB (CK-2) C-Reactive Protein NT-Pro-B Natriuret Pep Total Protein Albumin 2.6 L Arterial Blood Glucose Urine WBC (Auto) 12/07/19 12/08/19 12/08/19 22:25 00:02 03:55 WBC 13.3 H RBC 3.40 L Hgb 9.7 L Hct 30.8 L MCHC 31 L RDW 15.5 H MCV MCH Lymph % (Auto) [place] % (Auto) 8.1 H [place] # 1.1 H Eos # Lymph # (Auto) [place] # (Auto) Eos # (Auto) Seg Neutrophils % 73.0 H Seg Neuts % (Manual) Baso # (Auto) Lymphocytes % (Manual) Monocytes % (Manual) Eosinophils % (Manual) Basophils % (Manual) Seg Neutrophils # 9.7 H Seg Neutrophils # Man Lymphocytes # (Manual) Monocytes # (Manual) Eosinophils # (Manual) Nucleated RBC % Basophils # (Manual) PT INR APTT Heparin Anti-Xa Level 0.12 L ABG pH POC ABG pO2 ABG pO2 ABG HCO3 ABG O2 Saturation ABG Base Excess POC ABG pCO2 ABG Hemoglobin ABG Oxyhemoglobin ABG Glucose Oxyhemoglobin Sodium Potassium Chloride Carbon Dioxide BUN Creatinine Glucose POC Glucose 151 H Lactic Acid Calcium Phosphorus Magnesium AST ALT Lactate Dehydrogenase CK-MB (CK-2) C-Reactive Protein NT-Pro-B Natriuret Pep Total Protein Albumin Arterial Blood Glucose Urine WBC (Auto) 12/08/19 12/08/19 12/08/19 03:55 05:21 06:01 WBC RBC Hgb Hct MCHC RDW MCV MCH Lymph % (Auto) [place] % (Auto) [place] # Eos # Lymph # (Auto) [place] # (Auto) Eos # (Auto) Seg Neutrophils % Seg Neuts % (Manual) Baso # (Auto) Lymphocytes % (Manual) Monocytes % (Manual) Eosinophils % (Manual) Basophils % (Manual) Seg Neutrophils # Seg Neutrophils # Man Lymphocytes # (Manual) Monocytes # (Manual) Eosinophils # (Manual) Nucleated RBC % Basophils # (Manual) PT INR APTT Heparin Anti-Xa Level 0.20 L ABG pH POC ABG pO2 ABG pO2 ABG HCO3 ABG O2 Saturation ABG Base Excess POC ABG pCO2 ABG Hemoglobin ABG Oxyhemoglobin ABG Glucose Oxyhemoglobin Sodium 149 H Potassium Chloride 108.0 H Carbon Dioxide BUN 28 H Creatinine 0.6 L Glucose 144 H POC Glucose 143 H Lactic Acid Calcium Phosphorus Magnesium AST 98 H ALT 145 H Lactate Dehydrogenase CK-MB (CK-2) C-Reactive Protein NT-Pro-B Natriuret Pep Total Protein 6.0 L Albumin 2.4 L Arterial Blood Glucose Urine WBC (Auto) 12/08/19 12/08/19 12/08/19 12:08 18:11 23:53 WBC RBC Hgb Hct MCHC RDW MCV MCH Lymph % (Auto) [place] % (Auto) [place] # Eos # Lymph # (Auto) [place] # (Auto) Eos # (Auto) Seg Neutrophils % Seg Neuts % (Manual) Baso # (Auto) Lymphocytes % (Manual) Monocytes % (Manual) Eosinophils % (Manual) Basophils % (Manual) Seg Neutrophils # Seg Neutrophils # Man Lymphocytes # (Manual) Monocytes # (Manual) Eosinophils # (Manual) Nucleated RBC % Basophils # (Manual) PT INR APTT Heparin Anti-Xa Level ABG pH POC ABG pO2 ABG pO2 ABG HCO3 ABG O2 Saturation ABG Base Excess POC ABG pCO2 ABG Hemoglobin ABG Oxyhemoglobin ABG Glucose Oxyhemoglobin Sodium Potassium Chloride Carbon Dioxide BUN Creatinine Glucose POC Glucose 172 H 122 H 162 H Lactic Acid Calcium Phosphorus Magnesium AST ALT Lactate Dehydrogenase CK-MB (CK-2) C-Reactive Protein NT-Pro-B Natriuret Pep Total Protein Albumin Arterial Blood Glucose Urine WBC (Auto) 12/09/19 12/09/19 12/09/19 04:03 04:03 05:53 WBC RBC Hgb 9.1 L Hct 28.9 L MCHC RDW MCV MCH Lymph % (Auto) [place] % (Auto) [place] # Eos # Lymph # (Auto) [place] # (Auto) Eos # (Auto) Seg Neutrophils % Seg Neuts % (Manual) Baso # (Auto) Lymphocytes % (Manual) Monocytes % (Manual) Eosinophils % (Manual) Basophils % (Manual) Seg Neutrophils # Seg Neutrophils # Man Lymphocytes # (Manual) Monocytes # (Manual) Eosinophils # (Manual) Nucleated RBC % Basophils # (Manual) PT INR APTT Heparin Anti-Xa Level 0.15 L ABG pH POC ABG pO2 ABG pO2 ABG HCO3 ABG O2 Saturation ABG Base Excess POC ABG pCO2 ABG Hemoglobin ABG Oxyhemoglobin ABG Glucose Oxyhemoglobin Sodium Potassium Chloride Carbon Dioxide BUN Creatinine Glucose POC Glucose 124 H Lactic Acid Calcium Phosphorus Magnesium AST ALT Lactate Dehydrogenase CK-MB (CK-2) C-Reactive Protein NT-Pro-B Natriuret Pep Total Protein Albumin Arterial Blood Glucose Urine WBC (Auto) 12/09/19 12/09/19 12/10/19 09:43 12:41 00:13 WBC RBC Hgb Hct MCHC RDW MCV MCH Lymph % (Auto) [place] % (Auto) [place] # Eos # Lymph # (Auto) [place] # (Auto) Eos # (Auto) Seg Neutrophils % Seg Neuts % (Manual) Baso # (Auto) Lymphocytes % (Manual) Monocytes % (Manual) Eosinophils % (Manual) Basophils % (Manual) Seg Neutrophils # Seg Neutrophils # Man Lymphocytes # (Manual) Monocytes # (Manual) Eosinophils # (Manual) Nucleated RBC % Basophils # (Manual) PT INR APTT Heparin Anti-Xa Level ABG pH POC ABG pO2 ABG pO2 ABG HCO3 ABG O2 Saturation ABG Base Excess POC ABG pCO2 ABG Hemoglobin ABG Oxyhemoglobin ABG Glucose Oxyhemoglobin Sodium Potassium Chloride Carbon Dioxide BUN 25 H Creatinine 0.6 L Glucose 131 H POC Glucose 109 H 120 H Lactic Acid Calcium Phosphorus Magnesium AST ALT Lactate Dehydrogenase CK-MB (CK-2) C-Reactive Protein NT-Pro-B Natriuret Pep Total Protein Albumin Arterial Blood Glucose Urine WBC (Auto) 12/10/19 12/10/19 12/10/19 04:14 04:14 12:00 WBC 13.3 H RBC 3.34 L Hgb 9.6 L Hct 30.4 L MCHC RDW 15.4 H MCV MCH Lymph % (Auto) [place] % (Auto) [place] # Eos # Lymph # (Auto) [place] # (Auto) Eos # (Auto) Seg Neutrophils % Seg Neuts % (Manual) 75.0 H Baso # (Auto) Lymphocytes % (Manual) 13.0 L Monocytes % (Manual) 8.0 H Eosinophils % (Manual) Basophils % (Manual) 2.0 H Seg Neutrophils # Seg Neutrophils # Man 10.0 H Lymphocytes # (Manual) Monocytes # (Manual) 1.1 H Eosinophils # (Manual) Nucleated RBC % Basophils # (Manual) 0.3 H PT INR APTT Heparin Anti-Xa Level ABG pH POC ABG pO2 ABG pO2 ABG HCO3 ABG O2 Saturation ABG Base Excess POC ABG pCO2 ABG Hemoglobin ABG Oxyhemoglobin ABG Glucose Oxyhemoglobin Sodium 147 H Potassium Chloride 108.3 H Carbon Dioxide BUN 21 H Creatinine 0.6 L Glucose 104 H POC Glucose 133 H Lactic Acid Calcium Phosphorus Magnesium AST ALT Lactate Dehydrogenase CK-MB (CK-2) C-Reactive Protein NT-Pro-B Natriuret Pep Total Protein Albumin Arterial Blood Glucose Urine WBC (Auto) 12/10/19 12/10/19 12/11/19 18:44 21:20 00:08 WBC 14.9 H RBC 3.36 L Hgb 9.6 L Hct 30.5 L MCHC RDW 15.4 H MCV MCH Lymph % (Auto) [place] % (Auto) [place] # Eos # Lymph # (Auto) [place] # (Auto) Eos # (Auto) Seg Neutrophils % Seg Neuts % (Manual) Baso # (Auto) Lymphocytes % (Manual) Monocytes % (Manual) Eosinophils % (Manual) Basophils % (Manual) Seg Neutrophils # Seg Neutrophils # Man Lymphocytes # (Manual) Monocytes # (Manual) Eosinophils # (Manual) Nucleated RBC % Basophils # (Manual) PT INR APTT Heparin Anti-Xa Level ABG pH POC ABG pO2 ABG pO2 ABG HCO3 ABG O2 Saturation ABG Base Excess POC ABG pCO2 ABG Hemoglobin ABG Oxyhemoglobin ABG Glucose Oxyhemoglobin Sodium Potassium Chloride Carbon Dioxide BUN Creatinine Glucose POC Glucose 119 H 134 H Lactic Acid Calcium Phosphorus Magnesium AST ALT Lactate Dehydrogenase CK-MB (CK-2) C-Reactive Protein NT-Pro-B Natriuret Pep Total Protein Albumin Arterial Blood Glucose Urine WBC (Auto) 12/11/19 12/11/19 12/11/19 03:54 07:28 08:36 WBC 11.9 H RBC 3.25 L Hgb 9.6 L Hct 29.2 L MCHC RDW 15.7 H MCV MCH Lymph % (Auto) [place] % (Auto) [place] # Eos # Lymph # (Auto) [place] # (Auto) Eos # (Auto) Seg Neutrophils % Seg Neuts % (Manual) Baso # (Auto) Lymphocytes % (Manual) Monocytes % (Manual) Eosinophils % (Manual) Basophils % (Manual) Seg Neutrophils # Seg Neutrophils # Man Lymphocytes # (Manual) Monocytes # (Manual) Eosinophils # (Manual) Nucleated RBC % Basophils # (Manual) PT INR APTT Heparin Anti-Xa Level 0.10 L 0.16 L ABG pH POC ABG pO2 ABG pO2 ABG HCO3 ABG O2 Saturation ABG Base Excess POC ABG pCO2 ABG Hemoglobin ABG Oxyhemoglobin ABG Glucose Oxyhemoglobin Sodium Potassium Chloride Carbon Dioxide BUN Creatinine Glucose POC Glucose Lactic Acid Calcium Phosphorus Magnesium AST ALT Lactate Dehydrogenase CK-MB (CK-2) C-Reactive Protein NT-Pro-B Natriuret Pep Total Protein Albumin Arterial Blood Glucose Urine WBC (Auto) 12/11/19 12/11/19 12/11/19 08:36 11:45 17:15 WBC RBC Hgb Hct MCHC RDW MCV MCH Lymph % (Auto) [place] % (Auto) [place] # Eos # Lymph # (Auto) [place] # (Auto) Eos # (Auto) Seg Neutrophils % Seg Neuts % (Manual) Baso # (Auto) Lymphocytes % (Manual) Monocytes % (Manual) Eosinophils % (Manual) Basophils % (Manual) Seg Neutrophils # Seg Neutrophils # Man Lymphocytes # (Manual) Monocytes # (Manual) Eosinophils # (Manual) Nucleated RBC % Basophils # (Manual) PT INR APTT Heparin Anti-Xa Level ABG pH POC ABG pO2 ABG pO2 ABG HCO3 ABG O2 Saturation ABG Base Excess POC ABG pCO2 ABG Hemoglobin ABG Oxyhemoglobin ABG Glucose Oxyhemoglobin Sodium Potassium Chloride Carbon Dioxide BUN Creatinine 0.5 L Glucose 128 H POC Glucose 136 H 109 H Lactic Acid Calcium Phosphorus Magnesium AST ALT Lactate Dehydrogenase CK-MB (CK-2) C-Reactive Protein NT-Pro-B Natriuret Pep Total Protein Albumin Arterial Blood Glucose Urine WBC (Auto) 12/12/19 12/12/19 12/12/19 00:03 05:53 05:53 WBC RBC Hgb 8.8 L Hct 27.6 L MCHC RDW MCV MCH Lymph % (Auto) [place] % (Auto) [place] # Eos # Lymph # (Auto) [place] # (Auto) Eos # (Auto) Seg Neutrophils % Seg Neuts % (Manual) Baso # (Auto) Lymphocytes % (Manual) Monocytes % (Manual) Eosinophils % (Manual) Basophils % (Manual) Seg Neutrophils # Seg Neutrophils # Man Lymphocytes # (Manual) Monocytes # (Manual) Eosinophils # (Manual) Nucleated RBC % Basophils # (Manual) PT INR APTT Heparin Anti-Xa Level 0.22 L ABG pH POC ABG pO2 ABG pO2 ABG HCO3 ABG O2 Saturation ABG Base Excess POC ABG pCO2 ABG Hemoglobin ABG Oxyhemoglobin ABG Glucose Oxyhemoglobin Sodium Potassium Chloride Carbon Dioxide BUN Creatinine Glucose POC Glucose 116 H Lactic Acid Calcium Phosphorus Magnesium AST ALT Lactate Dehydrogenase CK-MB (CK-2) C-Reactive Protein NT-Pro-B Natriuret Pep Total Protein Albumin Arterial Blood Glucose Urine WBC (Auto) 12/12/19 12/12/19 12/12/19 09:38 12:18 17:44 WBC RBC Hgb Hct MCHC RDW MCV MCH Lymph % (Auto) [place] % (Auto) [place] # Eos # Lymph # (Auto) [place] # (Auto) Eos # (Auto) Seg Neutrophils % Seg Neuts % (Manual) Baso # (Auto) Lymphocytes % (Manual) Monocytes % (Manual) Eosinophils % (Manual) Basophils % (Manual) Seg Neutrophils # Seg Neutrophils # Man Lymphocytes # (Manual) Monocytes # (Manual) Eosinophils # (Manual) Nucleated RBC % Basophils # (Manual) PT INR APTT Heparin Anti-Xa Level ABG pH POC ABG pO2 ABG pO2 ABG HCO3 ABG O2 Saturation ABG Base Excess POC ABG pCO2 ABG Hemoglobin ABG Oxyhemoglobin ABG Glucose Oxyhemoglobin Sodium Potassium Chloride Carbon Dioxide BUN Creatinine Glucose POC Glucose 115 H 146 H 146 H Lactic Acid Calcium Phosphorus Magnesium AST ALT Lactate Dehydrogenase CK-MB (CK-2) C-Reactive Protein NT-Pro-B Natriuret Pep Total Protein Albumin Arterial Blood Glucose Urine WBC (Auto) 12/12/19 12/13/19 12/13/19 23:33 05:32 05:32 WBC 13.1 H RBC 3.27 L Hgb 9.5 L Hct 29.3 L MCHC RDW 15.6 H MCV MCH Lymph % (Auto) [place] % (Auto) [place] # Eos # Lymph # (Auto) [place] # (Auto) Eos # (Auto) Seg Neutrophils % Seg Neuts % (Manual) 74.0 H Baso # (Auto) Lymphocytes % (Manual) 8.0 L Monocytes % (Manual) 9.0 H Eosinophils % (Manual) 5.0 H Basophils % (Manual) Seg Neutrophils # Seg Neutrophils # Man 9.7 H Lymphocytes # (Manual) 1.0 L Monocytes # (Manual) 1.2 H Eosinophils # (Manual) 0.7 H Nucleated RBC % Basophils # (Manual) PT INR APTT Heparin Anti-Xa Level 0.20 L ABG pH POC ABG pO2 ABG pO2 ABG HCO3 ABG O2 Saturation ABG Base Excess POC ABG pCO2 ABG Hemoglobin ABG Oxyhemoglobin ABG Glucose Oxyhemoglobin Sodium Potassium Chloride Carbon Dioxide BUN Creatinine Glucose POC Glucose 126 H Lactic Acid Calcium Phosphorus Magnesium AST ALT Lactate Dehydrogenase CK-MB (CK-2) C-Reactive Protein NT-Pro-B Natriuret Pep Total Protein Albumin Arterial Blood Glucose Urine WBC (Auto) 12/13/19 12/13/19 12/13/19 05:32 05:46 11:57 WBC RBC Hgb Hct MCHC RDW MCV MCH Lymph % (Auto) [place] % (Auto) [place] # Eos # Lymph # (Auto) [place] # (Auto) Eos # (Auto) Seg Neutrophils % Seg Neuts % (Manual) Baso # (Auto) Lymphocytes % (Manual) Monocytes % (Manual) Eosinophils % (Manual) Basophils % (Manual) Seg Neutrophils # Seg Neutrophils # Man Lymphocytes # (Manual) Monocytes # (Manual) Eosinophils # (Manual) Nucleated RBC % Basophils # (Manual) PT INR APTT Heparin Anti-Xa Level ABG pH POC ABG pO2 ABG pO2 ABG HCO3 ABG O2 Saturation ABG Base Excess POC ABG pCO2 ABG Hemoglobin ABG Oxyhemoglobin ABG Glucose Oxyhemoglobin Sodium Potassium Chloride Carbon Dioxide 31 H BUN Creatinine 0.6 L Glucose 114 H POC Glucose 118 H 133 H Lactic Acid Calcium Phosphorus Magnesium AST ALT Lactate Dehydrogenase CK-MB (CK-2) C-Reactive Protein NT-Pro-B Natriuret Pep Total Protein Albumin Arterial Blood Glucose Urine WBC (Auto) 12/13/19 12/13/19 12/14/19 17:44 23:46 05:32 WBC RBC Hgb Hct MCHC RDW MCV MCH Lymph % (Auto) [place] % (Auto) [place] # Eos # Lymph # (Auto) [place] # (Auto) Eos # (Auto) Seg Neutrophils % Seg Neuts % (Manual) Baso # (Auto) Lymphocytes % (Manual) Monocytes % (Manual) Eosinophils % (Manual) Basophils % (Manual) Seg Neutrophils # Seg Neutrophils # Man Lymphocytes # (Manual) Monocytes # (Manual) Eosinophils # (Manual) Nucleated RBC % Basophils # (Manual) PT INR APTT Heparin Anti-Xa Level ABG pH POC ABG pO2 ABG pO2 ABG HCO3 ABG O2 Saturation ABG Base Excess POC ABG pCO2 ABG Hemoglobin ABG Oxyhemoglobin ABG Glucose Oxyhemoglobin Sodium Potassium Chloride Carbon Dioxide BUN Creatinine Glucose POC Glucose 161 H 126 H 139 H Lactic Acid Calcium Phosphorus Magnesium AST ALT Lactate Dehydrogenase CK-MB (CK-2) C-Reactive Protein NT-Pro-B Natriuret Pep Total Protein Albumin Arterial Blood Glucose Urine WBC (Auto) 12/14/19 12/14/19 12/14/19 06:03 06:03 09:37 WBC RBC Hgb 9.6 L Hct 30.4 L MCHC RDW MCV MCH Lymph % (Auto) [place] % (Auto) [place] # Eos # Lymph # (Auto) [place] # (Auto) Eos # (Auto) Seg Neutrophils % Seg Neuts % (Manual) Baso # (Auto) Lymphocytes % (Manual) Monocytes % (Manual) Eosinophils % (Manual) Basophils % (Manual) Seg Neutrophils # Seg Neutrophils # Man Lymphocytes # (Manual) Monocytes # (Manual) Eosinophils # (Manual) Nucleated RBC % Basophils # (Manual) PT INR APTT Heparin Anti-Xa Level 0.24 L ABG pH POC ABG pO2 ABG pO2 ABG HCO3 ABG O2 Saturation ABG Base Excess POC ABG pCO2 ABG Hemoglobin ABG Oxyhemoglobin ABG Glucose Oxyhemoglobin Sodium Potassium Chloride Carbon Dioxide BUN Creatinine 0.6 L Glucose 162 H POC Glucose Lactic Acid Calcium Phosphorus Magnesium AST 71 H ALT 118 H Lactate Dehydrogenase CK-MB (CK-2) C-Reactive Protein NT-Pro-B Natriuret Pep Total Protein 6.2 L Albumin 2.3 L Arterial Blood Glucose Urine WBC (Auto) 12/14/19 12/14/19 12/15/19 12:06 18:18 00:19 WBC RBC Hgb Hct MCHC RDW MCV MCH Lymph % (Auto) [place] % (Auto) [place] # Eos # Lymph # (Auto) [place] # (Auto) Eos # (Auto) Seg Neutrophils % Seg Neuts % (Manual) Baso # (Auto) Lymphocytes % (Manual) Monocytes % (Manual) Eosinophils % (Manual) Basophils % (Manual) Seg Neutrophils # Seg Neutrophils # Man Lymphocytes # (Manual) Monocytes # (Manual) Eosinophils # (Manual) Nucleated RBC % Basophils # (Manual) PT INR APTT Heparin Anti-Xa Level ABG pH POC ABG pO2 ABG pO2 ABG HCO3 ABG O2 Saturation ABG Base Excess POC ABG pCO2 ABG Hemoglobin ABG Oxyhemoglobin ABG Glucose Oxyhemoglobin Sodium Potassium Chloride Carbon Dioxide BUN Creatinine Glucose POC Glucose 147 H 166 H 123 H Lactic Acid Calcium Phosphorus Magnesium AST ALT Lactate Dehydrogenase CK-MB (CK-2) C-Reactive Protein NT-Pro-B Natriuret Pep Total Protein Albumin Arterial Blood Glucose Urine WBC (Auto) 12/15/19 12/15/19 12/15/19 05:28 05:29 05:29 WBC 14.9 H RBC 3.19 L Hgb 9.1 L Hct 28.7 L MCHC RDW 16.0 H MCV MCH Lymph % (Auto) [place] % (Auto) [place] # Eos # Lymph # (Auto) [place] # (Auto) Eos # (Auto) Seg Neutrophils % Seg Neuts % (Manual) Baso # (Auto) Lymphocytes % (Manual) Monocytes % (Manual) Eosinophils % (Manual) Basophils % (Manual) Seg Neutrophils # Seg Neutrophils # Man Lymphocytes # (Manual) Monocytes # (Manual) Eosinophils # (Manual) Nucleated RBC % Basophils # (Manual) PT INR APTT Heparin Anti-Xa Level 0.19 L ABG pH POC ABG pO2 ABG pO2 ABG HCO3 ABG O2 Saturation ABG Base Excess POC ABG pCO2 ABG Hemoglobin ABG Oxyhemoglobin ABG Glucose Oxyhemoglobin Sodium Potassium Chloride Carbon Dioxide BUN Creatinine 0.6 L Glucose 110 H POC Glucose Lactic Acid Calcium Phosphorus Magnesium AST ALT Lactate Dehydrogenase CK-MB (CK-2) C-Reactive Protein NT-Pro-B Natriuret Pep Total Protein Albumin Arterial Blood Glucose Urine WBC (Auto) 12/15/19 12/15/19 12/15/19 05:53 11:50 17:26 WBC RBC Hgb Hct MCHC RDW MCV MCH Lymph % (Auto) [place] % (Auto) [place] # Eos # Lymph # (Auto) [place] # (Auto) Eos # (Auto) Seg Neutrophils % Seg Neuts % (Manual) Baso # (Auto) Lymphocytes % (Manual) Monocytes % (Manual) Eosinophils % (Manual) Basophils % (Manual) Seg Neutrophils # Seg Neutrophils # Man Lymphocytes # (Manual) Monocytes # (Manual) Eosinophils # (Manual) Nucleated RBC % Basophils # (Manual) PT INR APTT Heparin Anti-Xa Level ABG pH POC ABG pO2 ABG pO2 ABG HCO3 ABG O2 Saturation ABG Base Excess POC ABG pCO2 ABG Hemoglobin ABG Oxyhemoglobin ABG Glucose Oxyhemoglobin Sodium Potassium Chloride Carbon Dioxide BUN Creatinine Glucose POC Glucose 119 H 132 H 128 H Lactic Acid Calcium Phosphorus Magnesium AST ALT Lactate Dehydrogenase CK-MB (CK-2) C-Reactive Protein NT-Pro-B Natriuret Pep Total Protein Albumin Arterial Blood Glucose Urine WBC (Auto) 12/15/19 12/16/19 12/16/19 23:11 05:30 05:46 WBC RBC Hgb 8.8 L Hct 27.9 L MCHC RDW MCV MCH Lymph % (Auto) [place] % (Auto) [place] # Eos # Lymph # (Auto) [place] # (Auto) Eos # (Auto) Seg Neutrophils % Seg Neuts % (Manual) Baso # (Auto) Lymphocytes % (Manual) Monocytes % (Manual) Eosinophils % (Manual) Basophils % (Manual) Seg Neutrophils # Seg Neutrophils # Man Lymphocytes # (Manual) Monocytes # (Manual) Eosinophils # (Manual) Nucleated RBC % Basophils # (Manual) PT INR APTT Heparin Anti-Xa Level ABG pH POC ABG pO2 ABG pO2 ABG HCO3 ABG O2 Saturation ABG Base Excess POC ABG pCO2 ABG Hemoglobin ABG Oxyhemoglobin ABG Glucose Oxyhemoglobin Sodium Potassium Chloride Carbon Dioxide BUN Creatinine Glucose POC Glucose 150 H 134 H Lactic Acid Calcium Phosphorus Magnesium AST ALT Lactate Dehydrogenase CK-MB (CK-2) C-Reactive Protein NT-Pro-B Natriuret Pep Total Protein Albumin Arterial Blood Glucose Urine WBC (Auto) 12/16/19 12/16/19 12/16/19 05:46 05:46 11:44 WBC RBC Hgb Hct MCHC RDW MCV MCH Lymph % (Auto) [place] % (Auto) [place] # Eos # Lymph # (Auto) [place] # (Auto) Eos # (Auto) Seg Neutrophils % Seg Neuts % (Manual) Baso # (Auto) Lymphocytes % (Manual) Monocytes % (Manual) Eosinophils % (Manual) Basophils % (Manual) Seg Neutrophils # Seg Neutrophils # Man Lymphocytes # (Manual) Monocytes # (Manual) Eosinophils # (Manual) Nucleated RBC % Basophils # (Manual) PT INR APTT Heparin Anti-Xa Level 0.20 L ABG pH POC ABG pO2 ABG pO2 ABG HCO3 ABG O2 Saturation ABG Base Excess POC ABG pCO2 ABG Hemoglobin ABG Oxyhemoglobin ABG Glucose Oxyhemoglobin Sodium Potassium Chloride Carbon Dioxide 31 H BUN Creatinine 0.5 L Glucose 147 H POC Glucose 164 H Lactic Acid Calcium Phosphorus Magnesium AST ALT Lactate Dehydrogenase CK-MB (CK-2) C-Reactive Protein NT-Pro-B Natriuret Pep Total Protein Albumin Arterial Blood Glucose Urine WBC (Auto) 12/16/19 12/16/19 12/17/19 17:17 23:49 05:30 WBC 13.9 H RBC 3.27 L Hgb 9.4 L Hct 29.2 L MCHC RDW 16.0 H MCV MCH Lymph % (Auto) [place] % (Auto) 8.8 H [place] # Eos # Lymph # (Auto) [place] # (Auto) 1.2 H Eos # (Auto) 0.5 H Seg Neutrophils % 70.5 H Seg Neuts % (Manual) Baso # (Auto) 0.2 H Lymphocytes % (Manual) Monocytes % (Manual) Eosinophils % (Manual) Basophils % (Manual) Seg Neutrophils # 9.8 H Seg Neutrophils # Man Lymphocytes # (Manual) Monocytes # (Manual) Eosinophils # (Manual) Nucleated RBC % Basophils # (Manual) PT INR APTT Heparin Anti-Xa Level ABG pH POC ABG pO2 ABG pO2 ABG HCO3 ABG O2 Saturation ABG Base Excess POC ABG pCO2 ABG Hemoglobin ABG Oxyhemoglobin ABG Glucose Oxyhemoglobin Sodium Potassium Chloride Carbon Dioxide BUN Creatinine Glucose POC Glucose 162 H 144 H Lactic Acid Calcium Phosphorus Magnesium AST ALT Lactate Dehydrogenase CK-MB (CK-2) C-Reactive Protein NT-Pro-B Natriuret Pep Total Protein Albumin Arterial Blood Glucose Urine WBC (Auto) 12/17/19 12/17/19 12/17/19 05:30 06:06 11:50 WBC RBC Hgb Hct MCHC RDW MCV MCH Lymph % (Auto) [place] % (Auto) [place] # Eos # Lymph # (Auto) [place] # (Auto) Eos # (Auto) Seg Neutrophils % Seg Neuts % (Manual) Baso # (Auto) Lymphocytes % (Manual) Monocytes % (Manual) Eosinophils % (Manual) Basophils % (Manual) Seg Neutrophils # Seg Neutrophils # Man Lymphocytes # (Manual) Monocytes # (Manual) Eosinophils # (Manual) Nucleated RBC % Basophils # (Manual) PT INR APTT Heparin Anti-Xa Level ABG pH POC ABG pO2 ABG pO2 ABG HCO3 ABG O2 Saturation ABG Base Excess POC ABG pCO2 ABG Hemoglobin ABG Oxyhemoglobin ABG Glucose Oxyhemoglobin Sodium Potassium Chloride 97.4 L Carbon Dioxide 32 H BUN Creatinine 0.5 L Glucose 135 H POC Glucose 151 H 140 H Lactic Acid Calcium Phosphorus Magnesium AST ALT Lactate Dehydrogenase CK-MB (CK-2) C-Reactive Protein NT-Pro-B Natriuret Pep Total Protein Albumin Arterial Blood Glucose Urine WBC (Auto) 12/17/19 12/17/19 12/18/19 17:50 23:46 05:17 WBC RBC Hgb 8.8 L Hct 28.0 L MCHC RDW MCV MCH Lymph % (Auto) [place] % (Auto) [place] # Eos # Lymph # (Auto) [place] # (Auto) Eos # (Auto) Seg Neutrophils % Seg Neuts % (Manual) Baso # (Auto) Lymphocytes % (Manual) Monocytes % (Manual) Eosinophils % (Manual) Basophils % (Manual) Seg Neutrophils # Seg Neutrophils # Man Lymphocytes # (Manual) Monocytes # (Manual) Eosinophils # (Manual) Nucleated RBC % Basophils # (Manual) PT INR APTT Heparin Anti-Xa Level ABG pH POC ABG pO2 ABG pO2 ABG HCO3 ABG O2 Saturation ABG Base Excess POC ABG pCO2 ABG Hemoglobin ABG Oxyhemoglobin ABG Glucose Oxyhemoglobin Sodium Potassium Chloride Carbon Dioxide BUN Creatinine Glucose POC Glucose 158 H 150 H Lactic Acid Calcium Phosphorus Magnesium AST ALT Lactate Dehydrogenase CK-MB (CK-2) C-Reactive Protein NT-Pro-B Natriuret Pep Total Protein Albumin Arterial Blood Glucose Urine WBC (Auto) 12/18/19 12/18/19 12/18/19 05:17 05:49 11:12 WBC RBC Hgb Hct MCHC RDW MCV MCH Lymph % (Auto) [place] % (Auto) [place] # Eos # Lymph # (Auto) [place] # (Auto) Eos # (Auto) Seg Neutrophils % Seg Neuts % (Manual) Baso # (Auto) Lymphocytes % (Manual) Monocytes % (Manual) Eosinophils % (Manual) Basophils % (Manual) Seg Neutrophils # Seg Neutrophils # Man Lymphocytes # (Manual) Monocytes # (Manual) Eosinophils # (Manual) Nucleated RBC % Basophils # (Manual) PT INR APTT Heparin Anti-Xa Level 0.16 L ABG pH POC ABG pO2 ABG pO2 ABG HCO3 ABG O2 Saturation ABG Base Excess POC ABG pCO2 ABG Hemoglobin ABG Oxyhemoglobin ABG Glucose Oxyhemoglobin Sodium Potassium Chloride Carbon Dioxide BUN Creatinine Glucose POC Glucose 127 H 191 H Lactic Acid Calcium Phosphorus Magnesium AST ALT Lactate Dehydrogenase CK-MB (CK-2) C-Reactive Protein NT-Pro-B Natriuret Pep Total Protein Albumin Arterial Blood Glucose Urine WBC (Auto) 12/18/19 12/18/19 12/19/19 17:03 20:16 00:08 WBC RBC Hgb Hct MCHC RDW MCV MCH Lymph % (Auto) [place] % (Auto) [place] # Eos # Lymph # (Auto) [place] # (Auto) Eos # (Auto) Seg Neutrophils % Seg Neuts % (Manual) Baso # (Auto) Lymphocytes % (Manual) Monocytes % (Manual) Eosinophils % (Manual) Basophils % (Manual) Seg Neutrophils # Seg Neutrophils # Man Lymphocytes # (Manual) Monocytes # (Manual) Eosinophils # (Manual) Nucleated RBC % Basophils # (Manual) PT INR APTT Heparin Anti-Xa Level ABG pH POC ABG pO2 ABG pO2 ABG HCO3 ABG O2 Saturation ABG Base Excess POC ABG pCO2 ABG Hemoglobin ABG Oxyhemoglobin ABG Glucose Oxyhemoglobin Sodium Potassium Chloride Carbon Dioxide BUN Creatinine Glucose POC Glucose 133 H 128 H 129 H Lactic Acid Calcium Phosphorus Magnesium AST ALT Lactate Dehydrogenase CK-MB (CK-2) C-Reactive Protein NT-Pro-B Natriuret Pep Total Protein Albumin Arterial Blood Glucose Urine WBC (Auto) 12/19/19 12/19/19 12/19/19 04:45 04:45 05:35 WBC RBC Hgb Hct MCHC RDW MCV MCH Lymph % (Auto) [place] % (Auto) [place] # Eos # Lymph # (Auto) [place] # (Auto) Eos # (Auto) Seg Neutrophils % Seg Neuts % (Manual) Baso # (Auto) Lymphocytes % (Manual) Monocytes % (Manual) Eosinophils % (Manual) Basophils % (Manual) Seg Neutrophils # Seg Neutrophils # Man Lymphocytes # (Manual) Monocytes # (Manual) Eosinophils # (Manual) Nucleated RBC % Basophils # (Manual) PT INR APTT Heparin Anti-Xa Level 0.17 L ABG pH POC ABG pO2 ABG pO2 ABG HCO3 ABG O2 Saturation ABG Base Excess POC ABG pCO2 ABG Hemoglobin ABG Oxyhemoglobin ABG Glucose Oxyhemoglobin Sodium Potassium Chloride Carbon Dioxide BUN Creatinine Glucose POC Glucose 120 H Lactic Acid Calcium Phosphorus Magnesium AST ALT Lactate Dehydrogenase 228 H CK-MB (CK-2) C-Reactive Protein NT-Pro-B Natriuret Pep Total Protein Albumin Arterial Blood Glucose Urine WBC (Auto) 12/19/19 12/19/19 12/19/19 09:20 11:32 11:32 WBC 14.6 H RBC 3.08 L Hgb 9.0 L Hct 26.8 L MCHC RDW 15.9 H MCV MCH Lymph % (Auto) [place] % (Auto) [place] # Eos # Lymph # (Auto) [place] # (Auto) Eos # (Auto) Seg Neutrophils % Seg Neuts % (Manual) 82.0 H Baso # (Auto) Lymphocytes % (Manual) 10.0 L Monocytes % (Manual) Eosinophils % (Manual) Basophils % (Manual) Seg Neutrophils # Seg Neutrophils # Man 12.0 H Lymphocytes # (Manual) Monocytes # (Manual) 0.9 H Eosinophils # (Manual) Nucleated RBC % 1.0 H Basophils # (Manual) PT INR APTT Heparin Anti-Xa Level ABG pH 7.451 H POC ABG pO2 ABG pO2 62.6 L ABG HCO3 33.2 H ABG O2 Saturation 93.8 L ABG Base Excess 8.3 H POC ABG pCO2 ABG Hemoglobin 8.3 L ABG Oxyhemoglobin ABG Glucose Oxyhemoglobin 91.9 L Sodium Potassium Chloride 95.0 L Carbon Dioxide 33 H BUN 22 H Creatinine 0.6 L Glucose 150 H POC Glucose Lactic Acid Calcium Phosphorus Magnesium AST ALT Lactate Dehydrogenase CK-MB (CK-2) C-Reactive Protein NT-Pro-B Natriuret Pep Total Protein 6.2 L Albumin 2.4 L Arterial Blood Glucose Urine WBC (Auto) 12/19/19 12/19/19 12/20/19 11:56 18:17 00:09 WBC RBC Hgb Hct MCHC RDW MCV MCH Lymph % (Auto) [place] % (Auto) [place] # Eos # Lymph # (Auto) [place] # (Auto) Eos # (Auto) Seg Neutrophils % Seg Neuts % (Manual) Baso # (Auto) Lymphocytes % (Manual) Monocytes % (Manual) Eosinophils % (Manual) Basophils % (Manual) Seg Neutrophils # Seg Neutrophils # Man Lymphocytes # (Manual) Monocytes # (Manual) Eosinophils # (Manual) Nucleated RBC % Basophils # (Manual) PT INR APTT Heparin Anti-Xa Level ABG pH POC ABG pO2 ABG pO2 ABG HCO3 ABG O2 Saturation ABG Base Excess POC ABG pCO2 ABG Hemoglobin ABG Oxyhemoglobin ABG Glucose Oxyhemoglobin Sodium Potassium Chloride Carbon Dioxide BUN Creatinine Glucose POC Glucose 156 H 156 H 155 H Lactic Acid Calcium Phosphorus Magnesium AST ALT Lactate Dehydrogenase CK-MB (CK-2) C-Reactive Protein NT-Pro-B Natriuret Pep Total Protein Albumin Arterial Blood Glucose Urine WBC (Auto) 12/20/19 12/20/19 12/20/19 05:26 06:02 18:17 WBC RBC Hgb Hct MCHC RDW MCV MCH Lymph % (Auto) [place] % (Auto) [place] # Eos # Lymph # (Auto) [place] # (Auto) Eos # (Auto) Seg Neutrophils % Seg Neuts % (Manual) Baso # (Auto) Lymphocytes % (Manual) Monocytes % (Manual) Eosinophils % (Manual) Basophils % (Manual) Seg Neutrophils # Seg Neutrophils # Man Lymphocytes # (Manual) Monocytes # (Manual) Eosinophils # (Manual) Nucleated RBC % Basophils # (Manual) PT INR APTT Heparin Anti-Xa Level 0.19 L ABG pH POC ABG pO2 ABG pO2 ABG HCO3 ABG O2 Saturation ABG Base Excess POC ABG pCO2 ABG Hemoglobin ABG Oxyhemoglobin ABG Glucose Oxyhemoglobin Sodium Potassium Chloride Carbon Dioxide BUN Creatinine Glucose POC Glucose 137 H 128 H Lactic Acid Calcium Phosphorus Magnesium AST ALT Lactate Dehydrogenase CK-MB (CK-2) C-Reactive Protein NT-Pro-B Natriuret Pep Total Protein Albumin Arterial Blood Glucose Urine WBC (Auto) 12/20/19 12/21/19 12/21/19 23:34 05:31 05:31 WBC 12.7 H RBC 3.09 L Hgb 8.9 L Hct 27.4 L MCHC RDW 15.8 H MCV MCH Lymph % (Auto) 12.1 L [place] % (Auto) 7.8 H [place] # Eos # Lymph # (Auto) [place] # (Auto) 1.0 H Eos # (Auto) Seg Neutrophils % 77.1 H Seg Neuts % (Manual) Baso # (Auto) Lymphocytes % (Manual) Monocytes % (Manual) Eosinophils % (Manual) Basophils % (Manual) Seg Neutrophils # 9.8 H Seg Neutrophils # Man Lymphocytes # (Manual) Monocytes # (Manual) Eosinophils # (Manual) Nucleated RBC % Basophils # (Manual) PT INR APTT Heparin Anti-Xa Level ABG pH POC ABG pO2 ABG pO2 ABG HCO3 ABG O2 Saturation ABG Base Excess POC ABG pCO2 ABG Hemoglobin ABG Oxyhemoglobin ABG Glucose Oxyhemoglobin Sodium Potassium Chloride 96.9 L Carbon Dioxide 37 H BUN 27 H Creatinine 0.7 L Glucose 140 H POC Glucose 145 H Lactic Acid Calcium Phosphorus Magnesium AST ALT Lactate Dehydrogenase CK-MB (CK-2) C-Reactive Protein NT-Pro-B Natriuret Pep Total Protein Albumin Arterial Blood Glucose Urine WBC (Auto) 12/21/19 12/21/19 12/21/19 05:38 10:13 11:51 WBC RBC Hgb Hct MCHC RDW MCV MCH Lymph % (Auto) [place] % (Auto) [place] # Eos # Lymph # (Auto) [place] # (Auto) Eos # (Auto) Seg Neutrophils % Seg Neuts % (Manual) Baso # (Auto) Lymphocytes % (Manual) Monocytes % (Manual) Eosinophils % (Manual) Basophils % (Manual) Seg Neutrophils # Seg Neutrophils # Man Lymphocytes # (Manual) Monocytes # (Manual) Eosinophils # (Manual) Nucleated RBC % Basophils # (Manual) PT INR APTT 23.9 L Heparin Anti-Xa Level < 0.10 L ABG pH POC ABG pO2 ABG pO2 ABG HCO3 ABG O2 Saturation ABG Base Excess POC ABG pCO2 ABG Hemoglobin ABG Oxyhemoglobin ABG Glucose Oxyhemoglobin Sodium Potassium Chloride Carbon Dioxide BUN Creatinine Glucose POC Glucose 151 H 145 H Lactic Acid Calcium Phosphorus Magnesium AST ALT Lactate Dehydrogenase CK-MB (CK-2) C-Reactive Protein NT-Pro-B Natriuret Pep Total Protein Albumin Arterial Blood Glucose Urine WBC (Auto) 12/21/19 12/22/19 12/22/19 17:16 00:01 01:33 WBC RBC Hgb Hct MCHC RDW MCV MCH Lymph % (Auto) [place] % (Auto) [place] # Eos # Lymph # (Auto) [place] # (Auto) Eos # (Auto) Seg Neutrophils % Seg Neuts % (Manual) Baso # (Auto) Lymphocytes % (Manual) Monocytes % (Manual) Eosinophils % (Manual) Basophils % (Manual) Seg Neutrophils # Seg Neutrophils # Man Lymphocytes # (Manual) Monocytes # (Manual) Eosinophils # (Manual) Nucleated RBC % Basophils # (Manual) PT INR APTT Heparin Anti-Xa Level 0.10 L ABG pH POC ABG pO2 ABG pO2 ABG HCO3 ABG O2 Saturation ABG Base Excess POC ABG pCO2 ABG Hemoglobin ABG Oxyhemoglobin ABG Glucose Oxyhemoglobin Sodium Potassium Chloride Carbon Dioxide BUN Creatinine Glucose POC Glucose 167 H 179 H Lactic Acid Calcium Phosphorus Magnesium AST ALT Lactate Dehydrogenase CK-MB (CK-2) C-Reactive Protein NT-Pro-B Natriuret Pep Total Protein Albumin Arterial Blood Glucose Urine WBC (Auto) 12/22/19 12/22/19 12/22/19 03:22 05:10 05:10 WBC 13.8 H RBC 3.20 L Hgb 8.9 L Hct 28.1 L MCHC RDW 15.9 H MCV MCH Lymph % (Auto) [place] % (Auto) [place] # Eos # Lymph # (Auto) [place] # (Auto) Eos # (Auto) Seg Neutrophils % Seg Neuts % (Manual) Baso # (Auto) Lymphocytes % (Manual) Monocytes % (Manual) Eosinophils % (Manual) Basophils % (Manual) Seg Neutrophils # Seg Neutrophils # Man Lymphocytes # (Manual) Monocytes # (Manual) Eosinophils # (Manual) Nucleated RBC % Basophils # (Manual) PT INR APTT Heparin Anti-Xa Level ABG pH POC ABG pO2 52.3 L ABG pO2 ABG HCO3 ABG O2 Saturation ABG Base Excess POC ABG pCO2 52.9 H ABG Hemoglobin 10.7 L ABG Oxyhemoglobin 84 L ABG Glucose Oxyhemoglobin Sodium Potassium Chloride 96.6 L Carbon Dioxide BUN 25 H Creatinine 0.7 L Glucose 129 H POC Glucose Lactic Acid Calcium Phosphorus Magnesium AST ALT Lactate Dehydrogenase CK-MB (CK-2) C-Reactive Protein NT-Pro-B Natriuret Pep Total Protein Albumin Arterial Blood Glucose Urine WBC (Auto) 12/22/19 12/22/19 12/22/19 05:18 12:32 12:43 WBC RBC Hgb Hct MCHC RDW MCV MCH Lymph % (Auto) [place] % (Auto) [place] # Eos # Lymph # (Auto) [place] # (Auto) Eos # (Auto) Seg Neutrophils % Seg Neuts % (Manual) Baso # (Auto) Lymphocytes % (Manual) Monocytes % (Manual) Eosinophils % (Manual) Basophils % (Manual) Seg Neutrophils # Seg Neutrophils # Man Lymphocytes # (Manual) Monocytes # (Manual) Eosinophils # (Manual) Nucleated RBC % Basophils # (Manual) PT INR APTT Heparin Anti-Xa Level 0.18 L ABG pH POC ABG pO2 ABG pO2 ABG HCO3 ABG O2 Saturation ABG Base Excess POC ABG pCO2 ABG Hemoglobin ABG Oxyhemoglobin ABG Glucose Oxyhemoglobin Sodium Potassium Chloride Carbon Dioxide BUN Creatinine Glucose POC Glucose 131 H 208 H Lactic Acid Calcium Phosphorus Magnesium AST ALT Lactate Dehydrogenase CK-MB (CK-2) C-Reactive Protein NT-Pro-B Natriuret Pep Total Protein Albumin Arterial Blood Glucose Urine WBC (Auto) 12/22/19 12/22/19 12/23/19 17:44 23:20 03:51 WBC 15.2 H RBC 3.43 L Hgb 9.6 L Hct 30.3 L MCHC RDW 15.9 H MCV MCH Lymph % (Auto) [place] % (Auto) [place] # Eos # Lymph # (Auto) [place] # (Auto) Eos # (Auto) Seg Neutrophils % Seg Neuts % (Manual) Baso # (Auto) Lymphocytes % (Manual) Monocytes % (Manual) Eosinophils % (Manual) Basophils % (Manual) Seg Neutrophils # Seg Neutrophils # Man Lymphocytes # (Manual) Monocytes # (Manual) Eosinophils # (Manual) Nucleated RBC % Basophils # (Manual) PT INR APTT Heparin Anti-Xa Level ABG pH POC ABG pO2 ABG pO2 ABG HCO3 ABG O2 Saturation ABG Base Excess POC ABG pCO2 ABG Hemoglobin ABG Oxyhemoglobin ABG Glucose Oxyhemoglobin Sodium Potassium Chloride Carbon Dioxide BUN Creatinine Glucose POC Glucose 209 H 119 H Lactic Acid Calcium Phosphorus Magnesium AST ALT Lactate Dehydrogenase CK-MB (CK-2) C-Reactive Protein NT-Pro-B Natriuret Pep Total Protein Albumin Arterial Blood Glucose Urine WBC (Auto) 12/23/19 12/23/19 12/23/19 03:51 05:31 12:09 WBC RBC Hgb Hct MCHC RDW MCV MCH Lymph % (Auto) [place] % (Auto) [place] # Eos # Lymph # (Auto) [place] # (Auto) Eos # (Auto) Seg Neutrophils % Seg Neuts % (Manual) Baso # (Auto) Lymphocytes % (Manual) Monocytes % (Manual) Eosinophils % (Manual) Basophils % (Manual) Seg Neutrophils # Seg Neutrophils # Man Lymphocytes # (Manual) Monocytes # (Manual) Eosinophils # (Manual) Nucleated RBC % Basophils # (Manual) PT INR APTT Heparin Anti-Xa Level ABG pH POC ABG pO2 ABG pO2 ABG HCO3 ABG O2 Saturation ABG Base Excess POC ABG pCO2 ABG Hemoglobin ABG Oxyhemoglobin ABG Glucose Oxyhemoglobin Sodium Potassium Chloride 97.2 L Carbon Dioxide 31 H BUN 23 H Creatinine 0.6 L Glucose 153 H POC Glucose 149 H 144 H Lactic Acid Calcium Phosphorus Magnesium AST ALT Lactate Dehydrogenase CK-MB (CK-2) C-Reactive Protein NT-Pro-B Natriuret Pep Total Protein Albumin Arterial Blood Glucose Urine WBC (Auto) 12/23/19 12/23/19 12/23/19 15:30 17:49 23:31 WBC RBC Hgb Hct MCHC RDW MCV MCH Lymph % (Auto) [place] % (Auto) [place] # Eos # Lymph # (Auto) [place] # (Auto) Eos # (Auto) Seg Neutrophils % Seg Neuts % (Manual) Baso # (Auto) Lymphocytes % (Manual) Monocytes % (Manual) Eosinophils % (Manual) Basophils % (Manual) Seg Neutrophils # Seg Neutrophils # Man Lymphocytes # (Manual) Monocytes # (Manual) Eosinophils # (Manual) Nucleated RBC % Basophils # (Manual) PT INR APTT Heparin Anti-Xa Level 0.21 L ABG pH POC ABG pO2 ABG pO2 ABG HCO3 ABG O2 Saturation ABG Base Excess POC ABG pCO2 ABG Hemoglobin ABG Oxyhemoglobin ABG Glucose Oxyhemoglobin Sodium Potassium Chloride Carbon Dioxide BUN Creatinine Glucose POC Glucose 192 H 151 H Lactic Acid Calcium Phosphorus Magnesium AST ALT Lactate Dehydrogenase CK-MB (CK-2) C-Reactive Protein NT-Pro-B Natriuret Pep Total Protein Albumin Arterial Blood Glucose Urine WBC (Auto) 12/24/19 12/24/19 12/24/19 05:34 12:13 16:50 WBC RBC Hgb Hct MCHC RDW MCV MCH Lymph % (Auto) [place] % (Auto) [place] # Eos # Lymph # (Auto) [place] # (Auto) Eos # (Auto) Seg Neutrophils % Seg Neuts % (Manual) Baso # (Auto) Lymphocytes % (Manual) Monocytes % (Manual) Eosinophils % (Manual) Basophils % (Manual) Seg Neutrophils # Seg Neutrophils # Man Lymphocytes # (Manual) Monocytes # (Manual) Eosinophils # (Manual) Nucleated RBC % Basophils # (Manual) PT INR APTT Heparin Anti-Xa Level 0.16 L ABG pH POC ABG pO2 ABG pO2 ABG HCO3 ABG O2 Saturation ABG Base Excess POC ABG pCO2 ABG Hemoglobin ABG Oxyhemoglobin ABG Glucose Oxyhemoglobin Sodium Potassium Chloride Carbon Dioxide BUN Creatinine Glucose POC Glucose 145 H 124 H Lactic Acid Calcium Phosphorus Magnesium AST ALT Lactate Dehydrogenase CK-MB (CK-2) C-Reactive Protein NT-Pro-B Natriuret Pep Total Protein Albumin Arterial Blood Glucose Urine WBC (Auto) 12/24/19 12/25/19 12/25/19 17:53 00:14 04:18 WBC 12.9 H RBC 3.30 L Hgb 9.1 L Hct 28.8 L MCHC RDW 16.4 H MCV MCH Lymph % (Auto) [place] % (Auto) 7.8 H [place] # Eos # Lymph # (Auto) [place] # (Auto) 1.0 H Eos # (Auto) Seg Neutrophils % 75.5 H Seg Neuts % (Manual) Baso # (Auto) Lymphocytes % (Manual) Monocytes % (Manual) Eosinophils % (Manual) Basophils % (Manual) Seg Neutrophils # 9.7 H Seg Neutrophils # Man Lymphocytes # (Manual) Monocytes # (Manual) Eosinophils # (Manual) Nucleated RBC % Basophils # (Manual) PT INR APTT Heparin Anti-Xa Level ABG pH POC ABG pO2 ABG pO2 ABG HCO3 ABG O2 Saturation ABG Base Excess POC ABG pCO2 ABG Hemoglobin ABG Oxyhemoglobin ABG Glucose Oxyhemoglobin Sodium Potassium Chloride Carbon Dioxide BUN Creatinine Glucose POC Glucose 164 H 148 H Lactic Acid Calcium Phosphorus Magnesium AST ALT Lactate Dehydrogenase CK-MB (CK-2) C-Reactive Protein NT-Pro-B Natriuret Pep Total Protein Albumin Arterial Blood Glucose Urine WBC (Auto) 12/25/19 12/25/19 12/25/19 04:18 05:38 11:44 WBC RBC Hgb Hct MCHC RDW MCV MCH Lymph % (Auto) [place] % (Auto) [place] # Eos # Lymph # (Auto) [place] # (Auto) Eos # (Auto) Seg Neutrophils % Seg Neuts % (Manual) Baso # (Auto) Lymphocytes % (Manual) Monocytes % (Manual) Eosinophils % (Manual) Basophils % (Manual) Seg Neutrophils # Seg Neutrophils # Man Lymphocytes # (Manual) Monocytes # (Manual) Eosinophils # (Manual) Nucleated RBC % Basophils # (Manual) PT INR APTT Heparin Anti-Xa Level ABG pH POC ABG pO2 ABG pO2 ABG HCO3 ABG O2 Saturation ABG Base Excess POC ABG pCO2 ABG Hemoglobin ABG Oxyhemoglobin ABG Glucose Oxyhemoglobin Sodium Potassium Chloride Carbon Dioxide 33 H BUN 27 H Creatinine 0.6 L Glucose 132 H POC Glucose 152 H 166 H Lactic Acid Calcium Phosphorus Magnesium AST ALT Lactate Dehydrogenase CK-MB (CK-2) C-Reactive Protein NT-Pro-B Natriuret Pep Total Protein Albumin Arterial Blood Glucose Urine WBC (Auto) 12/25/19 12/26/19 12/26/19 18:29 00:17 00:18 WBC RBC Hgb Hct MCHC RDW MCV MCH Lymph % (Auto) [place] % (Auto) [place] # Eos # Lymph # (Auto) [place] # (Auto) Eos # (Auto) Seg Neutrophils % Seg Neuts % (Manual) Baso # (Auto) Lymphocytes % (Manual) Monocytes % (Manual) Eosinophils % (Manual) Basophils % (Manual) Seg Neutrophils # Seg Neutrophils # Man Lymphocytes # (Manual) Monocytes # (Manual) Eosinophils # (Manual) Nucleated RBC % Basophils # (Manual) PT INR APTT Heparin Anti-Xa Level ABG pH POC ABG pO2 ABG pO2 ABG HCO3 ABG O2 Saturation ABG Base Excess POC ABG pCO2 ABG Hemoglobin ABG Oxyhemoglobin ABG Glucose Oxyhemoglobin Sodium Potassium Chloride 97.8 L Carbon Dioxide BUN 25 H Creatinine 0.6 L Glucose 140 H POC Glucose 194 H 151 H Lactic Acid Calcium Phosphorus Magnesium AST ALT Lactate Dehydrogenase CK-MB (CK-2) C-Reactive Protein NT-Pro-B Natriuret Pep Total Protein Albumin Arterial Blood Glucose Urine WBC (Auto) 12/26/19 12/26/19 12/26/19 05:36 11:41 17:50 WBC RBC Hgb Hct MCHC RDW MCV MCH Lymph % (Auto) [place] % (Auto) [place] # Eos # Lymph # (Auto) [place] # (Auto) Eos # (Auto) Seg Neutrophils % Seg Neuts % (Manual) Baso # (Auto) Lymphocytes % (Manual) Monocytes % (Manual) Eosinophils % (Manual) Basophils % (Manual) Seg Neutrophils # Seg Neutrophils # Man Lymphocytes # (Manual) Monocytes # (Manual) Eosinophils # (Manual) Nucleated RBC % Basophils # (Manual) PT INR APTT Heparin Anti-Xa Level ABG pH POC ABG pO2 ABG pO2 ABG HCO3 ABG O2 Saturation ABG Base Excess POC ABG pCO2 ABG Hemoglobin ABG Oxyhemoglobin ABG Glucose Oxyhemoglobin Sodium Potassium Chloride Carbon Dioxide BUN Creatinine Glucose POC Glucose 156 H 148 H 139 H Lactic Acid Calcium Phosphorus Magnesium AST ALT Lactate Dehydrogenase CK-MB (CK-2) C-Reactive Protein NT-Pro-B Natriuret Pep Total Protein Albumin Arterial Blood Glucose Urine WBC (Auto) 12/26/19 12/27/19 12/27/19 23:19 05:34 12:02 WBC RBC Hgb Hct MCHC RDW MCV MCH Lymph % (Auto) [place] % (Auto) [place] # Eos # Lymph # (Auto) [place] # (Auto) Eos # (Auto) Seg Neutrophils % Seg Neuts % (Manual) Baso # (Auto) Lymphocytes % (Manual) Monocytes % (Manual) Eosinophils % (Manual) Basophils % (Manual) Seg Neutrophils # Seg Neutrophils # Man Lymphocytes # (Manual) Monocytes # (Manual) Eosinophils # (Manual) Nucleated RBC % Basophils # (Manual) PT INR APTT Heparin Anti-Xa Level ABG pH POC ABG pO2 ABG pO2 ABG HCO3 ABG O2 Saturation ABG Base Excess POC ABG pCO2 ABG Hemoglobin ABG Oxyhemoglobin ABG Glucose Oxyhemoglobin Sodium Potassium Chloride Carbon Dioxide BUN Creatinine Glucose POC Glucose 161 H 145 H 157 H Lactic Acid Calcium Phosphorus Magnesium AST ALT Lactate Dehydrogenase CK-MB (CK-2) C-Reactive Protein NT-Pro-B Natriuret Pep Total Protein Albumin Arterial Blood Glucose Urine WBC (Auto) 12/27/19 12/27/19 12/27/19 17:35 20:11 23:00 WBC RBC Hgb Hct MCHC RDW MCV MCH Lymph % (Auto) [place] % (Auto) [place] # Eos # Lymph # (Auto) [place] # (Auto) Eos # (Auto) Seg Neutrophils % Seg Neuts % (Manual) Baso # (Auto) Lymphocytes % (Manual) Monocytes % (Manual) Eosinophils % (Manual) Basophils % (Manual) Seg Neutrophils # Seg Neutrophils # Man Lymphocytes # (Manual) Monocytes # (Manual) Eosinophils # (Manual) Nucleated RBC % Basophils # (Manual) PT INR APTT Heparin Anti-Xa Level 0.19 L ABG pH POC ABG pO2 ABG pO2 ABG HCO3 ABG O2 Saturation ABG Base Excess POC ABG pCO2 ABG Hemoglobin ABG Oxyhemoglobin ABG Glucose Oxyhemoglobin Sodium Potassium Chloride Carbon Dioxide BUN Creatinine Glucose POC Glucose 158 H 155 H Lactic Acid Calcium Phosphorus Magnesium AST ALT Lactate Dehydrogenase CK-MB (CK-2) C-Reactive Protein NT-Pro-B Natriuret Pep Total Protein Albumin Arterial Blood Glucose Urine WBC (Auto) 12/27/19 12/28/19 12/28/19 23:45 02:41 02:41 WBC 13.0 H RBC 3.48 L Hgb 9.5 L Hct 30.6 L MCHC 31 L RDW 16.6 H MCV MCH 27 L Lymph % (Auto) 13.0 L [place] % (Auto) 8.0 H [place] # Eos # Lymph # (Auto) [place] # (Auto) 1.0 H Eos # (Auto) Seg Neutrophils % 76.3 H Seg Neuts % (Manual) Baso # (Auto) Lymphocytes % (Manual) Monocytes % (Manual) Eosinophils % (Manual) Basophils % (Manual) Seg Neutrophils # 9.9 H Seg Neutrophils # Man Lymphocytes # (Manual) Monocytes # (Manual) Eosinophils # (Manual) Nucleated RBC % Basophils # (Manual) PT INR APTT Heparin Anti-Xa Level ABG pH POC ABG pO2 ABG pO2 ABG HCO3 ABG O2 Saturation ABG Base Excess POC ABG pCO2 ABG Hemoglobin ABG Oxyhemoglobin ABG Glucose Oxyhemoglobin Sodium Potassium Chloride Carbon Dioxide BUN 22 H Creatinine 0.6 L Glucose 101 H POC Glucose 130 H Lactic Acid Calcium Phosphorus Magnesium AST ALT Lactate Dehydrogenase CK-MB (CK-2) C-Reactive Protein NT-Pro-B Natriuret Pep Total Protein Albumin Arterial Blood Glucose Urine WBC (Auto) 12/28/19 12/28/19 12/28/19 06:00 12:34 18:13 WBC RBC Hgb Hct MCHC RDW MCV MCH Lymph % (Auto) [place] % (Auto) [place] # Eos # Lymph # (Auto) [place] # (Auto) Eos # (Auto) Seg Neutrophils % Seg Neuts % (Manual) Baso # (Auto) Lymphocytes % (Manual) Monocytes % (Manual) Eosinophils % (Manual) Basophils % (Manual) Seg Neutrophils # Seg Neutrophils # Man Lymphocytes # (Manual) Monocytes # (Manual) Eosinophils # (Manual) Nucleated RBC % Basophils # (Manual) PT INR APTT Heparin Anti-Xa Level ABG pH POC ABG pO2 ABG pO2 ABG HCO3 ABG O2 Saturation ABG Base Excess POC ABG pCO2 ABG Hemoglobin ABG Oxyhemoglobin ABG Glucose Oxyhemoglobin Sodium Potassium Chloride Carbon Dioxide BUN Creatinine Glucose POC Glucose 150 H 161 H 128 H Lactic Acid Calcium Phosphorus Magnesium AST ALT Lactate Dehydrogenase CK-MB (CK-2) C-Reactive Protein NT-Pro-B Natriuret Pep Total Protein Albumin Arterial Blood Glucose Urine WBC (Auto) 12/28/19 12/29/19 12/29/19 23:36 05:21 11:40 WBC RBC Hgb Hct MCHC RDW MCV MCH Lymph % (Auto) [place] % (Auto) [place] # Eos # Lymph # (Auto) [place] # (Auto) Eos # (Auto) Seg Neutrophils % Seg Neuts % (Manual) Baso # (Auto) Lymphocytes % (Manual) Monocytes % (Manual) Eosinophils % (Manual) Basophils % (Manual) Seg Neutrophils # Seg Neutrophils # Man Lymphocytes # (Manual) Monocytes # (Manual) Eosinophils # (Manual) Nucleated RBC % Basophils # (Manual) PT INR APTT Heparin Anti-Xa Level ABG pH POC ABG pO2 ABG pO2 ABG HCO3 ABG O2 Saturation ABG Base Excess POC ABG pCO2 ABG Hemoglobin ABG Oxyhemoglobin ABG Glucose Oxyhemoglobin Sodium Potassium Chloride Carbon Dioxide BUN Creatinine Glucose POC Glucose 137 H 136 H 166 H Lactic Acid Calcium Phosphorus Magnesium AST ALT Lactate Dehydrogenase CK-MB (CK-2) C-Reactive Protein NT-Pro-B Natriuret Pep Total Protein Albumin Arterial Blood Glucose Urine WBC (Auto) 12/29/19 12/29/19 12/29/19 17:23 19:21 23:38 WBC RBC Hgb Hct MCHC RDW MCV MCH Lymph % (Auto) [place] % (Auto) [place] # Eos # Lymph # (Auto) [place] # (Auto) Eos # (Auto) Seg Neutrophils % Seg Neuts % (Manual) Baso # (Auto) Lymphocytes % (Manual) Monocytes % (Manual) Eosinophils % (Manual) Basophils % (Manual) Seg Neutrophils # Seg Neutrophils # Man Lymphocytes # (Manual) Monocytes # (Manual) Eosinophils # (Manual) Nucleated RBC % Basophils # (Manual) PT INR APTT Heparin Anti-Xa Level 0.20 L ABG pH POC ABG pO2 ABG pO2 ABG HCO3 ABG O2 Saturation ABG Base Excess POC ABG pCO2 ABG Hemoglobin ABG Oxyhemoglobin ABG Glucose Oxyhemoglobin Sodium Potassium Chloride Carbon Dioxide BUN Creatinine Glucose POC Glucose 144 H 141 H Lactic Acid Calcium Phosphorus Magnesium AST ALT Lactate Dehydrogenase CK-MB (CK-2) C-Reactive Protein NT-Pro-B Natriuret Pep Total Protein Albumin Arterial Blood Glucose Urine WBC (Auto) 12/30/19 12/30/19 12/30/19 03:58 03:58 04:59 WBC RBC 3.54 L Hgb 9.8 L Hct 30.7 L MCHC RDW 16.8 H MCV MCH Lymph % (Auto) [place] % (Auto) [place] # Eos # Lymph # (Auto) [place] # (Auto) Eos # (Auto) Seg Neutrophils % Seg Neuts % (Manual) Baso # (Auto) Lymphocytes % (Manual) Monocytes % (Manual) Eosinophils % (Manual) Basophils % (Manual) Seg Neutrophils # Seg Neutrophils # Man Lymphocytes # (Manual) Monocytes # (Manual) Eosinophils # (Manual) Nucleated RBC % Basophils # (Manual) PT INR APTT Heparin Anti-Xa Level ABG pH POC ABG pO2 ABG pO2 ABG HCO3 29.8 H ABG O2 Saturation ABG Base Excess 4.8 H POC ABG pCO2 ABG Hemoglobin 11.2 L ABG Oxyhemoglobin ABG Glucose Oxyhemoglobin 93.8 L Sodium Potassium Chloride 97.8 L Carbon Dioxide BUN 26 H Creatinine Glucose 168 H POC Glucose Lactic Acid Calcium Phosphorus Magnesium AST ALT Lactate Dehydrogenase CK-MB (CK-2) C-Reactive Protein NT-Pro-B Natriuret Pep Total Protein Albumin Arterial Blood Glucose Urine WBC (Auto) 12/30/19 12/30/19 12/30/19 05:45 11:34 17:28 WBC RBC Hgb Hct MCHC RDW MCV MCH Lymph % (Auto) [place] % (Auto) [place] # Eos # Lymph # (Auto) [place] # (Auto) Eos # (Auto) Seg Neutrophils % Seg Neuts % (Manual) Baso # (Auto) Lymphocytes % (Manual) Monocytes % (Manual) Eosinophils % (Manual) Basophils % (Manual) Seg Neutrophils # Seg Neutrophils # Man Lymphocytes # (Manual) Monocytes # (Manual) Eosinophils # (Manual) Nucleated RBC % Basophils # (Manual) PT INR APTT Heparin Anti-Xa Level ABG pH POC ABG pO2 ABG pO2 ABG HCO3 ABG O2 Saturation ABG Base Excess POC ABG pCO2 ABG Hemoglobin ABG Oxyhemoglobin ABG Glucose Oxyhemoglobin Sodium Potassium Chloride Carbon Dioxide BUN Creatinine Glucose POC Glucose 163 H 180 H 150 H Lactic Acid Calcium Phosphorus Magnesium AST ALT Lactate Dehydrogenase CK-MB (CK-2) C-Reactive Protein NT-Pro-B Natriuret Pep Total Protein Albumin Arterial Blood Glucose Urine WBC (Auto) 10/07/20 10/08/20 10/08/20 23:43 04:55 05:07 WBC RBC Hgb Hct MCHC RDW MCV MCH Lymph % (Auto) [place] % (Auto) [place] # Eos # Lymph # (Auto) [place] # (Auto) Eos # (Auto) Seg Neutrophils % Seg Neuts % (Manual) Baso # (Auto) Lymphocytes % (Manual) Monocytes % (Manual) Eosinophils % (Manual) Basophils % (Manual) Seg Neutrophils # Seg Neutrophils # Man Lymphocytes # (Manual) Monocytes # (Manual) Eosinophils # (Manual) Nucleated RBC % Basophils # (Manual) PT INR APTT Heparin Anti-Xa Level ABG pH POC ABG pO2 ABG pO2 ABG HCO3 ABG O2 Saturation ABG Base Excess POC ABG pCO2 ABG Hemoglobin ABG Oxyhemoglobin ABG Glucose Oxyhemoglobin Sodium Potassium 5.6 H D Chloride Carbon Dioxide BUN 33 H Creatinine Glucose 131 H POC Glucose 142 H 134 H Lactic Acid Calcium Phosphorus Magnesium AST ALT Lactate Dehydrogenase CK-MB (CK-2) C-Reactive Protein NT-Pro-B Natriuret Pep Total Protein Albumin Arterial Blood Glucose Urine WBC (Auto) 12/31/19 12/31/19 12/31/19 11:30 17:19 17:36 WBC RBC Hgb Hct MCHC RDW MCV MCH Lymph % (Auto) [place] % (Auto) [place] # Eos # Lymph # (Auto) [place] # (Auto) Eos # (Auto) Seg Neutrophils % Seg Neuts % (Manual) Baso # (Auto) Lymphocytes % (Manual) Monocytes % (Manual) Eosinophils % (Manual) Basophils % (Manual) Seg Neutrophils # Seg Neutrophils # Man Lymphocytes # (Manual) Monocytes # (Manual) Eosinophils # (Manual) Nucleated RBC % Basophils # (Manual) PT INR APTT Heparin Anti-Xa Level ABG pH POC ABG pO2 ABG pO2 ABG HCO3 ABG O2 Saturation ABG Base Excess POC ABG pCO2 ABG Hemoglobin ABG Oxyhemoglobin ABG Glucose Oxyhemoglobin Sodium Potassium Chloride Carbon Dioxide BUN 35 H Creatinine Glucose 156 H POC Glucose 158 H 181 H Lactic Acid Calcium Phosphorus Magnesium AST ALT Lactate Dehydrogenase CK-MB (CK-2) C-Reactive Protein NT-Pro-B Natriuret Pep Total Protein Albumin Arterial Blood Glucose Urine WBC (Auto) 12/31/19 12/31/19 12/31/19 18:16 19:41 21:53 WBC RBC Hgb Hct MCHC RDW MCV MCH Lymph % (Auto) [place] % (Auto) [place] # Eos # Lymph # (Auto) [place] # (Auto) Eos # (Auto) Seg Neutrophils % Seg Neuts % (Manual) Baso # (Auto) Lymphocytes % (Manual) Monocytes % (Manual) Eosinophils % (Manual) Basophils % (Manual) Seg Neutrophils # Seg Neutrophils # Man Lymphocytes # (Manual) Monocytes # (Manual) Eosinophils # (Manual) Nucleated RBC % Basophils # (Manual) PT INR APTT Heparin Anti-Xa Level 0.20 L ABG pH POC ABG pO2 ABG pO2 ABG HCO3 ABG O2 Saturation ABG Base Excess POC ABG pCO2 ABG Hemoglobin ABG Oxyhemoglobin ABG Glucose Oxyhemoglobin Sodium Potassium Chloride Carbon Dioxide BUN 34 H Creatinine Glucose 169 H POC Glucose 141 H Lactic Acid Calcium Phosphorus Magnesium AST ALT Lactate Dehydrogenase CK-MB (CK-2) C-Reactive Protein NT-Pro-B Natriuret Pep Total Protein Albumin Arterial Blood Glucose Urine WBC (Auto) 12/31/19 01/01/20 01/01/20 23:51 05:17 10:40 WBC RBC Hgb Hct MCHC RDW MCV MCH Lymph % (Auto) [place] % (Auto) [place] # Eos # Lymph # (Auto) [place] # (Auto) Eos # (Auto) Seg Neutrophils % Seg Neuts % (Manual) Baso # (Auto) Lymphocytes % (Manual) Monocytes % (Manual) Eosinophils % (Manual) Basophils % (Manual) Seg Neutrophils # Seg Neutrophils # Man Lymphocytes # (Manual) Monocytes # (Manual) Eosinophils # (Manual) Nucleated RBC % Basophils # (Manual) PT INR APTT Heparin Anti-Xa Level ABG pH POC ABG pO2 ABG pO2 ABG HCO3 ABG O2 Saturation ABG Base Excess POC ABG pCO2 ABG Hemoglobin ABG Oxyhemoglobin ABG Glucose Oxyhemoglobin Sodium Potassium Chloride Carbon Dioxide BUN 31 H Creatinine 0.7 L Glucose 137 H POC Glucose 131 H 155 H Lactic Acid Calcium Phosphorus Magnesium AST 73 H ALT 97 H Lactate Dehydrogenase CK-MB (CK-2) C-Reactive Protein NT-Pro-B Natriuret Pep 3866 H Total Protein Albumin 2.8 L Arterial Blood Glucose Urine WBC (Auto) 01/01/20 01/01/20 01/01/20 12:26 15:33 17:53 WBC 14.3 H RBC 3.35 L Hgb 9.1 L Hct 28.8 L MCHC RDW 17.0 H MCV MCH 27 L Lymph % (Auto) 7.0 L [place] % (Auto) 7.6 H [place] # Eos # Lymph # (Auto) 1.0 L [place] # (Auto) 1.1 H Eos # (Auto) Seg Neutrophils % 83.3 H Seg Neuts % (Manual) Baso # (Auto) Lymphocytes % (Manual) Monocytes % (Manual) Eosinophils % (Manual) Basophils % (Manual) Seg Neutrophils # 12.0 H Seg Neutrophils # Man Lymphocytes # (Manual) Monocytes # (Manual) Eosinophils # (Manual) Nucleated RBC % Basophils # (Manual) PT INR APTT Heparin Anti-Xa Level ABG pH POC ABG pO2 ABG pO2 ABG HCO3 ABG O2 Saturation ABG Base Excess POC ABG pCO2 ABG Hemoglobin ABG Oxyhemoglobin ABG Glucose Oxyhemoglobin Sodium Potassium Chloride Carbon Dioxide BUN Creatinine Glucose POC Glucose 128 H 128 H Lactic Acid Calcium Phosphorus Magnesium AST ALT Lactate Dehydrogenase CK-MB (CK-2) C-Reactive Protein NT-Pro-B Natriuret Pep Total Protein Albumin Arterial Blood Glucose Urine WBC (Auto) 01/01/20 01/02/20 01/02/20 23:04 05:39 07:00 WBC RBC Hgb Hct MCHC RDW MCV MCH Lymph % (Auto) [place] % (Auto) [place] # Eos # Lymph # (Auto) [place] # (Auto) Eos # (Auto) Seg Neutrophils % Seg Neuts % (Manual) Baso # (Auto) Lymphocytes % (Manual) Monocytes % (Manual) Eosinophils % (Manual) Basophils % (Manual) Seg Neutrophils # Seg Neutrophils # Man Lymphocytes # (Manual) Monocytes # (Manual) Eosinophils # (Manual) Nucleated RBC % Basophils # (Manual) PT INR APTT Heparin Anti-Xa Level 0.13 L ABG pH POC ABG pO2 ABG pO2 ABG HCO3 ABG O2 Saturation ABG Base Excess POC ABG pCO2 ABG Hemoglobin ABG Oxyhemoglobin ABG Glucose Oxyhemoglobin Sodium Potassium Chloride Carbon Dioxide BUN Creatinine Glucose POC Glucose 120 H 169 H Lactic Acid Calcium Phosphorus Magnesium AST ALT Lactate Dehydrogenase CK-MB (CK-2) C-Reactive Protein NT-Pro-B Natriuret Pep Total Protein Albumin Arterial Blood Glucose Urine WBC (Auto) 01/02/20 01/02/20 01/02/20 12:15 14:06 17:58 WBC RBC Hgb Hct MCHC RDW MCV MCH Lymph % (Auto) [place] % (Auto) [place] # Eos # Lymph # (Auto) [place] # (Auto) Eos # (Auto) Seg Neutrophils % Seg Neuts % (Manual) Baso # (Auto) Lymphocytes % (Manual) Monocytes % (Manual) Eosinophils % (Manual) Basophils % (Manual) Seg Neutrophils # Seg Neutrophils # Man Lymphocytes # (Manual) Monocytes # (Manual) Eosinophils # (Manual) Nucleated RBC % Basophils # (Manual) PT INR APTT Heparin Anti-Xa Level < 0.10 L ABG pH POC ABG pO2 ABG pO2 ABG HCO3 ABG O2 Saturation ABG Base Excess POC ABG pCO2 ABG Hemoglobin ABG Oxyhemoglobin ABG Glucose Oxyhemoglobin Sodium Potassium Chloride Carbon Dioxide BUN Creatinine Glucose POC Glucose 190 H 198 H Lactic Acid Calcium Phosphorus Magnesium AST ALT Lactate Dehydrogenase CK-MB (CK-2) C-Reactive Protein NT-Pro-B Natriuret Pep Total Protein Albumin Arterial Blood Glucose Urine WBC (Auto) 01/02/20 01/02/20 01/03/20 21:43 23:33 05:42 WBC RBC Hgb Hct MCHC RDW MCV MCH Lymph % (Auto) [place] % (Auto) [place] # Eos # Lymph # (Auto) [place] # (Auto) Eos # (Auto) Seg Neutrophils % Seg Neuts % (Manual) Baso # (Auto) Lymphocytes % (Manual) Monocytes % (Manual) Eosinophils % (Manual) Basophils % (Manual) Seg Neutrophils # Seg Neutrophils # Man Lymphocytes # (Manual) Monocytes # (Manual) Eosinophils # (Manual) Nucleated RBC % Basophils # (Manual) PT INR APTT Heparin Anti-Xa Level 0.10 L ABG pH POC ABG pO2 ABG pO2 ABG HCO3 ABG O2 Saturation ABG Base Excess POC ABG pCO2 ABG Hemoglobin ABG Oxyhemoglobin ABG Glucose Oxyhemoglobin Sodium Potassium Chloride Carbon Dioxide BUN Creatinine Glucose POC Glucose 180 H 163 H Lactic Acid Calcium Phosphorus Magnesium AST ALT Lactate Dehydrogenase CK-MB (CK-2) C-Reactive Protein NT-Pro-B Natriuret Pep Total Protein Albumin Arterial Blood Glucose Urine WBC (Auto) 01/03/20 01/03/20 01/03/20 06:50 07:25 07:45 WBC 12.1 H RBC 3.35 L Hgb 9.0 L Hct 28.9 L MCHC 31 L RDW 16.6 H MCV MCH 27 L Lymph % (Auto) 13.0 L [place] % (Auto) 8.6 H [place] # Eos # Lymph # (Auto) [place] # (Auto) 1.0 H Eos # (Auto) Seg Neutrophils % 75.9 H Seg Neuts % (Manual) Baso # (Auto) Lymphocytes % (Manual) Monocytes % (Manual) Eosinophils % (Manual) Basophils % (Manual) Seg Neutrophils # 9.2 H Seg Neutrophils # Man Lymphocytes # (Manual) Monocytes # (Manual) Eosinophils # (Manual) Nucleated RBC % Basophils # (Manual) PT INR APTT Heparin Anti-Xa Level 0.29 L ABG pH POC ABG pO2 ABG pO2 ABG HCO3 ABG O2 Saturation ABG Base Excess POC ABG pCO2 ABG Hemoglobin ABG Oxyhemoglobin ABG Glucose Oxyhemoglobin Sodium Potassium 3.3 L D Chloride Carbon Dioxide 35 H D BUN 23 H Creatinine 0.6 L Glucose 149 H POC Glucose Lactic Acid Calcium Phosphorus Magnesium AST ALT 88 H Lactate Dehydrogenase CK-MB (CK-2) C-Reactive Protein NT-Pro-B Natriuret Pep Total Protein 6.2 L Albumin 2.9 L Arterial Blood Glucose Urine WBC (Auto) 01/03/20 01/03/20 01/03/20 12:05 17:42 18:30 WBC RBC Hgb Hct MCHC RDW MCV MCH Lymph % (Auto) [place] % (Auto) [place] # Eos # Lymph # (Auto) [place] # (Auto) Eos # (Auto) Seg Neutrophils % Seg Neuts % (Manual) Baso # (Auto) Lymphocytes % (Manual) Monocytes % (Manual) Eosinophils % (Manual) Basophils % (Manual) Seg Neutrophils # Seg Neutrophils # Man Lymphocytes # (Manual) Monocytes # (Manual) Eosinophils # (Manual) Nucleated RBC % Basophils # (Manual) PT INR APTT Heparin Anti-Xa Level ABG pH POC ABG pO2 ABG pO2 70.7 L ABG HCO3 36.1 H ABG O2 Saturation 94.4 L ABG Base Excess 10.0 H POC ABG pCO2 ABG Hemoglobin 9.7 L ABG Oxyhemoglobin ABG Glucose Oxyhemoglobin 91.8 L Sodium Potassium Chloride Carbon Dioxide BUN Creatinine Glucose POC Glucose 128 H 132 H Lactic Acid Calcium Phosphorus Magnesium AST ALT Lactate Dehydrogenase CK-MB (CK-2) C-Reactive Protein NT-Pro-B Natriuret Pep Total Protein Albumin Arterial Blood Glucose Urine WBC (Auto) 01/04/20 01/04/20 01/04/20 00:10 04:26 05:23 WBC RBC Hgb Hct MCHC RDW MCV MCH Lymph % (Auto) [place] % (Auto) [place] # Eos # Lymph # (Auto) [place] # (Auto) Eos # (Auto) Seg Neutrophils % Seg Neuts % (Manual) Baso # (Auto) Lymphocytes % (Manual) Monocytes % (Manual) Eosinophils % (Manual) Basophils % (Manual) Seg Neutrophils # Seg Neutrophils # Man Lymphocytes # (Manual) Monocytes # (Manual) Eosinophils # (Manual) Nucleated RBC % Basophils # (Manual) PT INR APTT Heparin Anti-Xa Level 0.16 L ABG pH POC ABG pO2 ABG pO2 ABG HCO3 ABG O2 Saturation ABG Base Excess POC ABG pCO2 ABG Hemoglobin ABG Oxyhemoglobin ABG Glucose Oxyhemoglobin Sodium Potassium Chloride Carbon Dioxide BUN Creatinine Glucose POC Glucose 121 H 119 H Lactic Acid Calcium Phosphorus Magnesium AST ALT Lactate Dehydrogenase CK-MB (CK-2) C-Reactive Protein NT-Pro-B Natriuret Pep Total Protein Albumin Arterial Blood Glucose Urine WBC (Auto) 01/04/20 01/04/20 01/04/20 09:50 09:50 12:18 WBC 15.4 H RBC 3.30 L Hgb 8.7 L Hct 28.2 L MCHC 31 L RDW 17.0 H MCV MCH 26 L Lymph % (Auto) [place] % (Auto) 7.6 H [place] # Eos # Lymph # (Auto) [place] # (Auto) 1.2 H Eos # (Auto) Seg Neutrophils % 75.4 H Seg Neuts % (Manual) Baso # (Auto) Lymphocytes % (Manual) Monocytes % (Manual) Eosinophils % (Manual) Basophils % (Manual) Seg Neutrophils # 11.6 H Seg Neutrophils # Man Lymphocytes # (Manual) Monocytes # (Manual) Eosinophils # (Manual) Nucleated RBC % Basophils # (Manual) PT INR APTT Heparin Anti-Xa Level ABG pH POC ABG pO2 ABG pO2 ABG HCO3 ABG O2 Saturation ABG Base Excess POC ABG pCO2 ABG Hemoglobin ABG Oxyhemoglobin ABG Glucose Oxyhemoglobin Sodium 148 H Potassium 3.5 L Chloride Carbon Dioxide 32 H BUN Creatinine 0.6 L Glucose 114 H POC Glucose 111 H Lactic Acid Calcium Phosphorus Magnesium AST ALT 59 H Lactate Dehydrogenase CK-MB (CK-2) C-Reactive Protein NT-Pro-B Natriuret Pep Total Protein Albumin 2.6 L Arterial Blood Glucose Urine WBC (Auto) 01/05/20 01/05/20 01/05/20 04:05 04:05 05:19 WBC 11.7 H RBC 3.50 L Hgb 9.3 L Hct 29.9 L MCHC 31 L RDW 16.6 H MCV MCH 27 L Lymph % (Auto) 13.1 L [place] % (Auto) 9.7 H [place] # Eos # Lymph # (Auto) [place] # (Auto) 1.1 H Eos # (Auto) Seg Neutrophils % 74.0 H Seg Neuts % (Manual) Baso # (Auto) Lymphocytes % (Manual) Monocytes % (Manual) Eosinophils % (Manual) Basophils % (Manual) Seg Neutrophils # 8.6 H Seg Neutrophils # Man Lymphocytes # (Manual) Monocytes # (Manual) Eosinophils # (Manual) Nucleated RBC % Basophils # (Manual) PT INR APTT Heparin Anti-Xa Level ABG pH POC ABG pO2 ABG pO2 ABG HCO3 ABG O2 Saturation ABG Base Excess POC ABG pCO2 ABG Hemoglobin ABG Oxyhemoglobin ABG Glucose Oxyhemoglobin Sodium 151 H Potassium Chloride Carbon Dioxide 34 H BUN Creatinine 0.7 L Glucose POC Glucose 112 H Lactic Acid Calcium Phosphorus Magnesium AST ALT 59 H Lactate Dehydrogenase CK-MB (CK-2) C-Reactive Protein NT-Pro-B Natriuret Pep Total Protein 5.8 L Albumin 2.6 L Arterial Blood Glucose Urine WBC (Auto) 01/05/20 01/06/20 01/06/20 16:04 00:23 04:44 WBC RBC 3.36 L Hgb 8.9 L Hct 28.7 L MCHC 31 L RDW 16.9 H MCV MCH 26 L Lymph % (Auto) [place] % (Auto) 9.4 H [place] # Eos # Lymph # (Auto) [place] # (Auto) Eos # (Auto) Seg Neutrophils % Seg Neuts % (Manual) Baso # (Auto) Lymphocytes % (Manual) Monocytes % (Manual) Eosinophils % (Manual) Basophils % (Manual) Seg Neutrophils # Seg Neutrophils # Man Lymphocytes # (Manual) Monocytes # (Manual) Eosinophils # (Manual) Nucleated RBC % Basophils # (Manual) PT INR APTT Heparin Anti-Xa Level ABG pH POC ABG pO2 ABG pO2 ABG HCO3 ABG O2 Saturation ABG Base Excess POC ABG pCO2 ABG Hemoglobin ABG Oxyhemoglobin ABG Glucose Oxyhemoglobin Sodium 151 H Potassium 3.2 L Chloride Carbon Dioxide 34 H BUN Creatinine 0.6 L Glucose POC Glucose 107 H Lactic Acid Calcium Phosphorus Magnesium AST ALT Lactate Dehydrogenase CK-MB (CK-2) C-Reactive Protein NT-Pro-B Natriuret Pep Total Protein Albumin Arterial Blood Glucose Urine WBC (Auto) 01/06/20 01/06/20 01/06/20 04:44 05:33 12:04 WBC RBC Hgb Hct MCHC RDW MCV MCH Lymph % (Auto) [place] % (Auto) [place] # Eos # Lymph # (Auto) [place] # (Auto) Eos # (Auto) Seg Neutrophils % Seg Neuts % (Manual) Baso # (Auto) Lymphocytes % (Manual) Monocytes % (Manual) Eosinophils % (Manual) Basophils % (Manual) Seg Neutrophils # Seg Neutrophils # Man Lymphocytes # (Manual) Monocytes # (Manual) Eosinophils # (Manual) Nucleated RBC % Basophils # (Manual) PT INR APTT Heparin Anti-Xa Level ABG pH POC ABG pO2 ABG pO2 ABG HCO3 ABG O2 Saturation ABG Base Excess POC ABG pCO2 ABG Hemoglobin ABG Oxyhemoglobin ABG Glucose Oxyhemoglobin Sodium 151 H Potassium 3.4 L Chloride Carbon Dioxide 33 H BUN Creatinine 0.6 L Glucose 118 H POC Glucose 118 H 123 H Lactic Acid Calcium Phosphorus Magnesium AST ALT Lactate Dehydrogenase CK-MB (CK-2) C-Reactive Protein NT-Pro-B Natriuret Pep Total Protein 6.2 L Albumin 2.6 L Arterial Blood Glucose Urine WBC (Auto) 01/06/20 01/07/20 01/07/20 17:54 00:06 04:10 WBC RBC 3.42 L Hgb 8.9 L Hct 29.0 L MCHC 31 L RDW 17.1 H MCV MCH 26 L Lymph % (Auto) [place] % (Auto) 8.4 H [place] # Eos # Lymph # (Auto) [place] # (Auto) Eos # (Auto) Seg Neutrophils % Seg Neuts % (Manual) Baso # (Auto) Lymphocytes % (Manual) Monocytes % (Manual) Eosinophils % (Manual) Basophils % (Manual) Seg Neutrophils # Seg Neutrophils # Man Lymphocytes # (Manual) Monocytes # (Manual) Eosinophils # (Manual) Nucleated RBC % Basophils # (Manual) PT INR APTT Heparin Anti-Xa Level ABG pH POC ABG pO2 ABG pO2 ABG HCO3 ABG O2 Saturation ABG Base Excess POC ABG pCO2 ABG Hemoglobin ABG Oxyhemoglobin ABG Glucose Oxyhemoglobin Sodium Potassium Chloride Carbon Dioxide BUN Creatinine Glucose POC Glucose 112 H 126 H Lactic Acid Calcium Phosphorus Magnesium AST ALT Lactate Dehydrogenase CK-MB (CK-2) C-Reactive Protein NT-Pro-B Natriuret Pep Total Protein Albumin Arterial Blood Glucose Urine WBC (Auto) 01/07/20 01/07/20 01/07/20 04:10 05:59 12:27 WBC RBC Hgb Hct MCHC RDW MCV MCH Lymph % (Auto) [place] % (Auto) [place] # Eos # Lymph # (Auto) [place] # (Auto) Eos # (Auto) Seg Neutrophils % Seg Neuts % (Manual) Baso # (Auto) Lymphocytes % (Manual) Monocytes % (Manual) Eosinophils % (Manual) Basophils % (Manual) Seg Neutrophils # Seg Neutrophils # Man Lymphocytes # (Manual) Monocytes # (Manual) Eosinophils # (Manual) Nucleated RBC % Basophils # (Manual) PT INR APTT Heparin Anti-Xa Level ABG pH POC ABG pO2 ABG pO2 ABG HCO3 ABG O2 Saturation ABG Base Excess POC ABG pCO2 ABG Hemoglobin ABG Oxyhemoglobin ABG Glucose Oxyhemoglobin Sodium 153 H Potassium 3.5 L Chloride Carbon Dioxide 34 H BUN Creatinine 0.6 L Glucose 121 H POC Glucose 121 H 126 H Lactic Acid Calcium Phosphorus Magnesium AST ALT Lactate Dehydrogenase CK-MB (CK-2) C-Reactive Protein NT-Pro-B Natriuret Pep Total Protein 5.9 L Albumin 2.4 L Arterial Blood Glucose Urine WBC (Auto) 01/07/20 01/08/20 01/08/20 18:12 00:03 05:41 WBC RBC Hgb Hct MCHC RDW MCV MCH Lymph % (Auto) [place] % (Auto) [place] # Eos # Lymph # (Auto) [place] # (Auto) Eos # (Auto) Seg Neutrophils % Seg Neuts % (Manual) Baso # (Auto) Lymphocytes % (Manual) Monocytes % (Manual) Eosinophils % (Manual) Basophils % (Manual) Seg Neutrophils # Seg Neutrophils # Man Lymphocytes # (Manual) Monocytes # (Manual) Eosinophils # (Manual) Nucleated RBC % Basophils # (Manual) PT INR APTT Heparin Anti-Xa Level ABG pH POC ABG pO2 ABG pO2 ABG HCO3 ABG O2 Saturation ABG Base Excess POC ABG pCO2 ABG Hemoglobin ABG Oxyhemoglobin ABG Glucose Oxyhemoglobin Sodium Potassium Chloride Carbon Dioxide BUN Creatinine Glucose POC Glucose 124 H 130 H 138 H Lactic Acid Calcium Phosphorus Magnesium AST ALT Lactate Dehydrogenase CK-MB (CK-2) C-Reactive Protein NT-Pro-B Natriuret Pep Total Protein Albumin Arterial Blood Glucose Urine WBC (Auto) 01/08/20 01/08/20 01/08/20 09:28 11:42 18:21 WBC RBC Hgb Hct MCHC RDW MCV MCH Lymph % (Auto) [place] % (Auto) [place] # Eos # Lymph # (Auto) [place] # (Auto) Eos # (Auto) Seg Neutrophils % Seg Neuts % (Manual) Baso # (Auto) Lymphocytes % (Manual) Monocytes % (Manual) Eosinophils % (Manual) Basophils % (Manual) Seg Neutrophils # Seg Neutrophils # Man Lymphocytes # (Manual) Monocytes # (Manual) Eosinophils # (Manual) Nucleated RBC % Basophils # (Manual) PT INR APTT Heparin Anti-Xa Level ABG pH POC ABG pO2 ABG pO2 ABG HCO3 ABG O2 Saturation ABG Base Excess POC ABG pCO2 ABG Hemoglobin ABG Oxyhemoglobin ABG Glucose Oxyhemoglobin Sodium Potassium Chloride Carbon Dioxide BUN Creatinine Glucose POC Glucose 181 H 150 H 129 H Lactic Acid Calcium Phosphorus Magnesium AST ALT Lactate Dehydrogenase CK-MB (CK-2) C-Reactive Protein NT-Pro-B Natriuret Pep Total Protein Albumin Arterial Blood Glucose Urine WBC (Auto) 01/08/20 01/08/20 01/09/20 19:25 23:55 04:11 WBC RBC 3.43 L Hgb 8.9 L Hct 28.7 L MCHC 31 L RDW 17.6 H MCV MCH 26 L Lymph % (Auto) [place] % (Auto) 8.6 H [place] # Eos # Lymph # (Auto) [place] # (Auto) Eos # (Auto) Seg Neutrophils % Seg Neuts % (Manual) Baso # (Auto) Lymphocytes % (Manual) Monocytes % (Manual) Eosinophils % (Manual) Basophils % (Manual) Seg Neutrophils # Seg Neutrophils # Man Lymphocytes # (Manual) Monocytes # (Manual) Eosinophils # (Manual) Nucleated RBC % Basophils # (Manual) PT INR APTT Heparin Anti-Xa Level ABG pH POC ABG pO2 ABG pO2 ABG HCO3 ABG O2 Saturation ABG Base Excess POC ABG pCO2 ABG Hemoglobin ABG Oxyhemoglobin ABG Glucose Oxyhemoglobin Sodium Potassium Chloride Carbon Dioxide BUN Creatinine 0.7 L Glucose 117 H POC Glucose 132 H Lactic Acid Calcium Phosphorus Magnesium AST ALT Lactate Dehydrogenase CK-MB (CK-2) C-Reactive Protein NT-Pro-B Natriuret Pep Total Protein Albumin Arterial Blood Glucose Urine WBC (Auto) 01/09/20 01/09/20 01/09/20 04:11 05:38 22:58 WBC RBC Hgb Hct MCHC RDW MCV MCH Lymph % (Auto) [place] % (Auto) [place] # Eos # Lymph # (Auto) [place] # (Auto) Eos # (Auto) Seg Neutrophils % Seg Neuts % (Manual) Baso # (Auto) Lymphocytes % (Manual) Monocytes % (Manual) Eosinophils % (Manual) Basophils % (Manual) Seg Neutrophils # Seg Neutrophils # Man Lymphocytes # (Manual) Monocytes # (Manual) Eosinophils # (Manual) Nucleated RBC % Basophils # (Manual) PT INR APTT Heparin Anti-Xa Level ABG pH POC ABG pO2 ABG pO2 ABG HCO3 ABG O2 Saturation ABG Base Excess POC ABG pCO2 ABG Hemoglobin ABG Oxyhemoglobin ABG Glucose Oxyhemoglobin Sodium 147 H Potassium 3.3 L D Chloride Carbon Dioxide 32 H BUN Creatinine 0.6 L Glucose 106 H POC Glucose 107 H 113 H Lactic Acid Calcium Phosphorus Magnesium AST ALT Lactate Dehydrogenase CK-MB (CK-2) C-Reactive Protein NT-Pro-B Natriuret Pep Total Protein Albumin Arterial Blood Glucose Urine WBC (Auto) 01/10/20 01/10/20 01/10/20 04:05 11:36 17:54 WBC RBC Hgb Hct MCHC RDW MCV MCH Lymph % (Auto) [place] % (Auto) [place] # Eos # Lymph # (Auto) [place] # (Auto) Eos # (Auto) Seg Neutrophils % Seg Neuts % (Manual) Baso # (Auto) Lymphocytes % (Manual) Monocytes % (Manual) Eosinophils % (Manual) Basophils % (Manual) Seg Neutrophils # Seg Neutrophils # Man Lymphocytes # (Manual) Monocytes # (Manual) Eosinophils # (Manual) Nucleated RBC % Basophils # (Manual) PT INR APTT Heparin Anti-Xa Level ABG pH POC ABG pO2 ABG pO2 ABG HCO3 ABG O2 Saturation ABG Base Excess POC ABG pCO2 ABG Hemoglobin ABG Oxyhemoglobin ABG Glucose Oxyhemoglobin Sodium Potassium Chloride Carbon Dioxide BUN Creatinine 0.7 L Glucose 110 H POC Glucose 129 H 117 H Lactic Acid Calcium Phosphorus Magnesium AST ALT Lactate Dehydrogenase CK-MB (CK-2) C-Reactive Protein NT-Pro-B Natriuret Pep Total Protein Albumin Arterial Blood Glucose Urine WBC (Auto) 01/10/20 01/11/20 01/11/20 23:52 03:19 12:09 WBC RBC Hgb Hct MCHC RDW MCV MCH Lymph % (Auto) [place] % (Auto) [place] # Eos # Lymph # (Auto) [place] # (Auto) Eos # (Auto) Seg Neutrophils % Seg Neuts % (Manual) Baso # (Auto) Lymphocytes % (Manual) Monocytes % (Manual) Eosinophils % (Manual) Basophils % (Manual) Seg Neutrophils # Seg Neutrophils # Man Lymphocytes # (Manual) Monocytes # (Manual) Eosinophils # (Manual) Nucleated RBC % Basophils # (Manual) PT INR APTT Heparin Anti-Xa Level ABG pH POC ABG pO2 ABG pO2 ABG HCO3 ABG O2 Saturation ABG Base Excess POC ABG pCO2 ABG Hemoglobin ABG Oxyhemoglobin ABG Glucose Oxyhemoglobin Sodium Potassium Chloride Carbon Dioxide BUN Creatinine Glucose POC Glucose 117 H 136 H 115 H Lactic Acid Calcium Phosphorus Magnesium AST ALT Lactate Dehydrogenase CK-MB (CK-2) C-Reactive Protein NT-Pro-B Natriuret Pep Total Protein Albumin Arterial Blood Glucose Urine WBC (Auto) 01/11/20 01/11/20 01/12/20 18:27 23:28 00:23 WBC RBC Hgb 9.8 L Hct 31.6 L MCHC 31 L RDW 17.8 H MCV 83 L MCH 26 L Lymph % (Auto) [place] % (Auto) 8.0 H [place] # Eos # Lymph # (Auto) [place] # (Auto) Eos # (Auto) Seg Neutrophils % Seg Neuts % (Manual) Baso # (Auto) Lymphocytes % (Manual) Monocytes % (Manual) Eosinophils % (Manual) Basophils % (Manual) Seg Neutrophils # Seg Neutrophils # Man Lymphocytes # (Manual) Monocytes # (Manual) Eosinophils # (Manual) Nucleated RBC % Basophils # (Manual) PT INR APTT Heparin Anti-Xa Level ABG pH POC ABG pO2 ABG pO2 ABG HCO3 ABG O2 Saturation ABG Base Excess POC ABG pCO2 ABG Hemoglobin ABG Oxyhemoglobin ABG Glucose Oxyhemoglobin Sodium Potassium Chloride Carbon Dioxide BUN Creatinine Glucose POC Glucose 118 H 122 H Lactic Acid Calcium Phosphorus Magnesium AST ALT Lactate Dehydrogenase CK-MB (CK-2) C-Reactive Protein NT-Pro-B Natriuret Pep Total Protein Albumin Arterial Blood Glucose Urine WBC (Auto) 01/12/20 01/12/20 01/12/20 00:23 04:18 04:18 WBC RBC Hgb 9.6 L Hct 30.9 L MCHC 31 L RDW 17.3 H MCV 81 L MCH 25 L Lymph % (Auto) [place] % (Auto) [place] # Eos # Lymph # (Auto) [place] # (Auto) Eos # (Auto) Seg Neutrophils % Seg Neuts % (Manual) Baso # (Auto) Lymphocytes % (Manual) Monocytes % (Manual) Eosinophils % (Manual) Basophils % (Manual) Seg Neutrophils # Seg Neutrophils # Man Lymphocytes # (Manual) Monocytes # (Manual) Eosinophils # (Manual) Nucleated RBC % Basophils # (Manual) PT INR APTT Heparin Anti-Xa Level ABG pH POC ABG pO2 ABG pO2 ABG HCO3 ABG O2 Saturation ABG Base Excess POC ABG pCO2 ABG Hemoglobin ABG Oxyhemoglobin ABG Glucose Oxyhemoglobin Sodium Potassium Chloride Carbon Dioxide BUN Creatinine 0.7 L 0.7 L Glucose 111 H 108 H POC Glucose Lactic Acid Calcium Phosphorus Magnesium AST ALT Lactate Dehydrogenase CK-MB (CK-2) C-Reactive Protein NT-Pro-B Natriuret Pep Total Protein Albumin 2.6 L Arterial Blood Glucose Urine WBC (Auto) 01/12/20 01/12/20 01/12/20 06:03 12:27 13:58 WBC RBC Hgb Hct MCHC RDW MCV MCH Lymph % (Auto) [place] % (Auto) [place] # Eos # Lymph # (Auto) [place] # (Auto) Eos # (Auto) Seg Neutrophils % Seg Neuts % (Manual) Baso # (Auto) Lymphocytes % (Manual) Monocytes % (Manual) Eosinophils % (Manual) Basophils % (Manual) Seg Neutrophils # Seg Neutrophils # Man Lymphocytes # (Manual) Monocytes # (Manual) Eosinophils # (Manual) Nucleated RBC % Basophils # (Manual) PT INR APTT Heparin Anti-Xa Level ABG pH 7.453 H POC ABG pO2 76.6 L ABG pO2 ABG HCO3 ABG O2 Saturation ABG Base Excess POC ABG pCO2 ABG Hemoglobin 10.3 L ABG Oxyhemoglobin ABG Glucose 99 H Oxyhemoglobin Sodium Potassium Chloride Carbon Dioxide BUN Creatinine Glucose POC Glucose 128 H 121 H Lactic Acid Calcium Phosphorus Magnesium AST ALT Lactate Dehydrogenase CK-MB (CK-2) C-Reactive Protein NT-Pro-B Natriuret Pep Total Protein Albumin Arterial Blood Glucose 99 H Urine WBC (Auto) 01/12/20 01/13/20 01/13/20 18:24 12:01 17:46 WBC RBC Hgb Hct MCHC RDW MCV MCH Lymph % (Auto) [place] % (Auto) [place] # Eos # Lymph # (Auto) [place] # (Auto) Eos # (Auto) Seg Neutrophils % Seg Neuts % (Manual) Baso # (Auto) Lymphocytes % (Manual) Monocytes % (Manual) Eosinophils % (Manual) Basophils % (Manual) Seg Neutrophils # Seg Neutrophils # Man Lymphocytes # (Manual) Monocytes # (Manual) Eosinophils # (Manual) Nucleated RBC % Basophils # (Manual) PT INR APTT Heparin Anti-Xa Level ABG pH POC ABG pO2 ABG pO2 ABG HCO3 ABG O2 Saturation ABG Base Excess POC ABG pCO2 ABG Hemoglobin ABG Oxyhemoglobin ABG Glucose Oxyhemoglobin Sodium Potassium Chloride Carbon Dioxide BUN Creatinine Glucose POC Glucose 119 H 107 H 124 H Lactic Acid Calcium Phosphorus Magnesium AST ALT Lactate Dehydrogenase CK-MB (CK-2) C-Reactive Protein NT-Pro-B Natriuret Pep Total Protein Albumin Arterial Blood Glucose Urine WBC (Auto) 01/13/20 01/14/20 01/14/20 20:40 00:10 05:33 WBC RBC Hgb Hct MCHC RDW MCV MCH Lymph % (Auto) [place] % (Auto) [place] # Eos # Lymph # (Auto) [place] # (Auto) Eos # (Auto) Seg Neutrophils % Seg Neuts % (Manual) Baso # (Auto) Lymphocytes % (Manual) Monocytes % (Manual) Eosinophils % (Manual) Basophils % (Manual) Seg Neutrophils # Seg Neutrophils # Man Lymphocytes # (Manual) Monocytes # (Manual) Eosinophils # (Manual) Nucleated RBC % Basophils # (Manual) PT INR APTT Heparin Anti-Xa Level ABG pH POC ABG pO2 ABG pO2 65.3 L ABG HCO3 31.8 H ABG O2 Saturation 93.5 L ABG Base Excess 6.7 H POC ABG pCO2 ABG Hemoglobin 13.3 L ABG Oxyhemoglobin ABG Glucose Oxyhemoglobin 90.9 L Sodium Potassium Chloride Carbon Dioxide BUN Creatinine Glucose POC Glucose 111 H 111 H Lactic Acid Calcium Phosphorus Magnesium AST ALT Lactate Dehydrogenase CK-MB (CK-2) C-Reactive Protein NT-Pro-B Natriuret Pep Total Protein Albumin Arterial Blood Glucose Urine WBC (Auto) 01/14/20 01/14/20 01/14/20 12:10 16:14 16:14 WBC RBC Hgb 10.6 L Hct 34.2 L MCHC 31 L RDW 18.3 H MCV 83 L MCH 26 L Lymph % (Auto) [place] % (Auto) 7.4 H [place] # Eos # Lymph # (Auto) [place] # (Auto) Eos # (Auto) Seg Neutrophils % 71.9 H Seg Neuts % (Manual) Baso # (Auto) Lymphocytes % (Manual) Monocytes % (Manual) Eosinophils % (Manual) Basophils % (Manual) Seg Neutrophils # Seg Neutrophils # Man Lymphocytes # (Manual) Monocytes # (Manual) Eosinophils # (Manual) Nucleated RBC % Basophils # (Manual) PT INR APTT Heparin Anti-Xa Level ABG pH POC ABG pO2 ABG pO2 ABG HCO3 ABG O2 Saturation ABG Base Excess POC ABG pCO2 ABG Hemoglobin ABG Oxyhemoglobin ABG Glucose Oxyhemoglobin Sodium Potassium Chloride Carbon Dioxide 31 H BUN Creatinine 0.6 L Glucose 131 H POC Glucose 139 H Lactic Acid Calcium Phosphorus Magnesium AST ALT Lactate Dehydrogenase CK-MB (CK-2) C-Reactive Protein NT-Pro-B Natriuret Pep Total Protein Albumin Arterial Blood Glucose Urine WBC (Auto) 01/14/20 01/15/20 01/15/20 18:05 00:52 05:35 WBC RBC Hgb Hct MCHC RDW MCV MCH Lymph % (Auto) [place] % (Auto) [place] # Eos # Lymph # (Auto) [place] # (Auto) Eos # (Auto) Seg Neutrophils % Seg Neuts % (Manual) Baso # (Auto) Lymphocytes % (Manual) Monocytes % (Manual) Eosinophils % (Manual) Basophils % (Manual) Seg Neutrophils # Seg Neutrophils # Man Lymphocytes # (Manual) Monocytes # (Manual) Eosinophils # (Manual) Nucleated RBC % Basophils # (Manual) PT INR APTT Heparin Anti-Xa Level ABG pH POC ABG pO2 ABG pO2 ABG HCO3 ABG O2 Saturation ABG Base Excess POC ABG pCO2 ABG Hemoglobin ABG Oxyhemoglobin ABG Glucose Oxyhemoglobin Sodium Potassium Chloride Carbon Dioxide BUN Creatinine Glucose POC Glucose 147 H 140 H 159 H Lactic Acid Calcium Phosphorus Magnesium AST ALT Lactate Dehydrogenase CK-MB (CK-2) C-Reactive Protein NT-Pro-B Natriuret Pep Total Protein Albumin Arterial Blood Glucose Urine WBC (Auto) 01/15/20 01/15/20 01/16/20 12:52 17:43 00:32 WBC RBC Hgb Hct MCHC RDW MCV MCH Lymph % (Auto) [place] % (Auto) [place] # Eos # Lymph # (Auto) [place] # (Auto) Eos # (Auto) Seg Neutrophils % Seg Neuts % (Manual) Baso # (Auto) Lymphocytes % (Manual) Monocytes % (Manual) Eosinophils % (Manual) Basophils % (Manual) Seg Neutrophils # Seg Neutrophils # Man Lymphocytes # (Manual) Monocytes # (Manual) Eosinophils # (Manual) Nucleated RBC % Basophils # (Manual) PT INR APTT Heparin Anti-Xa Level ABG pH POC ABG pO2 ABG pO2 ABG HCO3 ABG O2 Saturation ABG Base Excess POC ABG pCO2 ABG Hemoglobin ABG Oxyhemoglobin ABG Glucose Oxyhemoglobin Sodium Potassium Chloride Carbon Dioxide BUN Creatinine Glucose POC Glucose 164 H 167 H 153 H Lactic Acid Calcium Phosphorus Magnesium AST ALT Lactate Dehydrogenase CK-MB (CK-2) C-Reactive Protein NT-Pro-B Natriuret Pep Total Protein Albumin Arterial Blood Glucose Urine WBC (Auto) 01/16/20 01/16/20 01/17/20 05:46 11:48 06:38 WBC RBC Hgb Hct MCHC RDW MCV MCH Lymph % (Auto) [place] % (Auto) [place] # Eos # Lymph # (Auto) [place] # (Auto) Eos # (Auto) Seg Neutrophils % Seg Neuts % (Manual) Baso # (Auto) Lymphocytes % (Manual) Monocytes % (Manual) Eosinophils % (Manual) Basophils % (Manual) Seg Neutrophils # Seg Neutrophils # Man Lymphocytes # (Manual) Monocytes # (Manual) Eosinophils # (Manual) Nucleated RBC % Basophils # (Manual) PT INR APTT Heparin Anti-Xa Level ABG pH POC ABG pO2 ABG pO2 ABG HCO3 ABG O2 Saturation ABG Base Excess POC ABG pCO2 ABG Hemoglobin ABG Oxyhemoglobin ABG Glucose Oxyhemoglobin Sodium Potassium Chloride Carbon Dioxide BUN Creatinine Glucose POC Glucose 163 H 155 H 116 H Lactic Acid Calcium Phosphorus Magnesium AST ALT Lactate Dehydrogenase CK-MB (CK-2) C-Reactive Protein NT-Pro-B Natriuret Pep Total Protein Albumin Arterial Blood Glucose Urine WBC (Auto) 01/17/20 01/17/20 01/18/20 11:36 17:43 00:12 WBC RBC Hgb Hct MCHC RDW MCV MCH Lymph % (Auto) [place] % (Auto) [place] # Eos # Lymph # (Auto) [place] # (Auto) Eos # (Auto) Seg Neutrophils % Seg Neuts % (Manual) Baso # (Auto) Lymphocytes % (Manual) Monocytes % (Manual) Eosinophils % (Manual) Basophils % (Manual) Seg Neutrophils # Seg Neutrophils # Man Lymphocytes # (Manual) Monocytes # (Manual) Eosinophils # (Manual) Nucleated RBC % Basophils # (Manual) PT INR APTT Heparin Anti-Xa Level ABG pH POC ABG pO2 ABG pO2 ABG HCO3 ABG O2 Saturation ABG Base Excess POC ABG pCO2 ABG Hemoglobin ABG Oxyhemoglobin ABG Glucose Oxyhemoglobin Sodium Potassium Chloride Carbon Dioxide BUN Creatinine Glucose POC Glucose 110 H 134 H 108 H Lactic Acid Calcium Phosphorus Magnesium AST ALT Lactate Dehydrogenase CK-MB (CK-2) C-Reactive Protein NT-Pro-B Natriuret Pep Total Protein Albumin Arterial Blood Glucose Urine WBC (Auto) 01/18/20 01/18/20 01/18/20 05:37 06:46 06:46 WBC RBC Hgb 10.1 L Hct 32.2 L MCHC 31 L RDW 18.1 H MCV 81 L MCH 25 L Lymph % (Auto) [place] % (Auto) [place] # Eos # Lymph # (Auto) [place] # (Auto) Eos # (Auto) Seg Neutrophils % 71.9 H Seg Neuts % (Manual) Baso # (Auto) Lymphocytes % (Manual) Monocytes % (Manual) Eosinophils % (Manual) Basophils % (Manual) Seg Neutrophils # Seg Neutrophils # Man Lymphocytes # (Manual) Monocytes # (Manual) Eosinophils # (Manual) Nucleated RBC % Basophils # (Manual) PT INR APTT Heparin Anti-Xa Level ABG pH POC ABG pO2 ABG pO2 ABG HCO3 ABG O2 Saturation ABG Base Excess POC ABG pCO2 ABG Hemoglobin ABG Oxyhemoglobin ABG Glucose Oxyhemoglobin Sodium Potassium Chloride Carbon Dioxide BUN Creatinine 0.7 L Glucose 155 H POC Glucose 168 H Lactic Acid Calcium Phosphorus Magnesium AST ALT Lactate Dehydrogenase CK-MB (CK-2) C-Reactive Protein NT-Pro-B Natriuret Pep Total Protein Albumin Arterial Blood Glucose Urine WBC (Auto) 01/18/20 01/18/20 01/18/20 12:05 17:14 23:28 WBC RBC Hgb Hct MCHC RDW MCV MCH Lymph % (Auto) [place] % (Auto) [place] # Eos # Lymph # (Auto) [place] # (Auto) Eos # (Auto) Seg Neutrophils % Seg Neuts % (Manual) Baso # (Auto) Lymphocytes % (Manual) Monocytes % (Manual) Eosinophils % (Manual) Basophils % (Manual) Seg Neutrophils # Seg Neutrophils # Man Lymphocytes # (Manual) Monocytes # (Manual) Eosinophils # (Manual) Nucleated RBC % Basophils # (Manual) PT INR APTT Heparin Anti-Xa Level ABG pH POC ABG pO2 ABG pO2 ABG HCO3 ABG O2 Saturation ABG Base Excess POC ABG pCO2 ABG Hemoglobin ABG Oxyhemoglobin ABG Glucose Oxyhemoglobin Sodium Potassium Chloride Carbon Dioxide BUN Creatinine Glucose POC Glucose 128 H 126 H 128 H Lactic Acid Calcium Phosphorus Magnesium AST ALT Lactate Dehydrogenase CK-MB (CK-2) C-Reactive Protein NT-Pro-B Natriuret Pep Total Protein Albumin Arterial Blood Glucose Urine WBC (Auto) 01/19/20 01/19/20 01/19/20 05:39 12:33 17:36 WBC RBC Hgb Hct MCHC RDW MCV MCH Lymph % (Auto) [place] % (Auto) [place] # Eos # Lymph # (Auto) [place] # (Auto) Eos # (Auto) Seg Neutrophils % Seg Neuts % (Manual) Baso # (Auto) Lymphocytes % (Manual) Monocytes % (Manual) Eosinophils % (Manual) Basophils % (Manual) Seg Neutrophils # Seg Neutrophils # Man Lymphocytes # (Manual) Monocytes # (Manual) Eosinophils # (Manual) Nucleated RBC % Basophils # (Manual) PT INR APTT Heparin Anti-Xa Level ABG pH POC ABG pO2 ABG pO2 ABG HCO3 ABG O2 Saturation ABG Base Excess POC ABG pCO2 ABG Hemoglobin ABG Oxyhemoglobin ABG Glucose Oxyhemoglobin Sodium Potassium Chloride Carbon Dioxide BUN Creatinine Glucose POC Glucose 164 H 171 H 152 H Lactic Acid Calcium Phosphorus Magnesium AST ALT Lactate Dehydrogenase CK-MB (CK-2) C-Reactive Protein NT-Pro-B Natriuret Pep Total Protein Albumin Arterial Blood Glucose Urine WBC (Auto) 01/20/20 01/20/20 01/20/20 00:12 05:20 05:35 WBC RBC Hgb 9.2 L Hct 29.4 L MCHC 31 L RDW 17.9 H MCV 81 L MCH 25 L Lymph % (Auto) [place] % (Auto) [place] # Eos # Lymph # (Auto) [place] # (Auto) Eos # (Auto) Seg Neutrophils % Seg Neuts % (Manual) Baso # (Auto) Lymphocytes % (Manual) Monocytes % (Manual) Eosinophils % (Manual) Basophils % (Manual) Seg Neutrophils # Seg Neutrophils # Man Lymphocytes # (Manual) Monocytes # (Manual) Eosinophils # (Manual) Nucleated RBC % Basophils # (Manual) PT INR APTT Heparin Anti-Xa Level ABG pH POC ABG pO2 ABG pO2 ABG HCO3 ABG O2 Saturation ABG Base Excess POC ABG pCO2 ABG Hemoglobin ABG Oxyhemoglobin ABG Glucose Oxyhemoglobin Sodium Potassium Chloride Carbon Dioxide BUN Creatinine Glucose POC Glucose 120 H 136 H Lactic Acid Calcium Phosphorus Magnesium AST ALT Lactate Dehydrogenase CK-MB (CK-2) C-Reactive Protein NT-Pro-B Natriuret Pep Total Protein Albumin Arterial Blood Glucose Urine WBC (Auto) 01/20/20 01/20/20 01/20/20 05:40 11:58 14:55 WBC RBC Hgb 9.0 L Hct 28.3 L MCHC RDW MCV MCH Lymph % (Auto) [place] % (Auto) [place] # Eos # Lymph # (Auto) [place] # (Auto) Eos # (Auto) Seg Neutrophils % Seg Neuts % (Manual) Baso # (Auto) Lymphocytes % (Manual) Monocytes % (Manual) Eosinophils % (Manual) Basophils % (Manual) Seg Neutrophils # Seg Neutrophils # Man Lymphocytes # (Manual) Monocytes # (Manual) Eosinophils # (Manual) Nucleated RBC % Basophils # (Manual) PT INR APTT Heparin Anti-Xa Level ABG pH POC ABG pO2 ABG pO2 ABG HCO3 ABG O2 Saturation ABG Base Excess POC ABG pCO2 ABG Hemoglobin ABG Oxyhemoglobin ABG Glucose Oxyhemoglobin Sodium Potassium Chloride Carbon Dioxide 32 H BUN 22 H Creatinine 0.7 L Glucose 128 H POC Glucose 152 H Lactic Acid Calcium Phosphorus Magnesium AST ALT Lactate Dehydrogenase CK-MB (CK-2) C-Reactive Protein NT-Pro-B Natriuret Pep Total Protein Albumin Arterial Blood Glucose Urine WBC (Auto) 01/20/20 01/20/20 01/20/20 14:55 18:14 21:35 WBC RBC Hgb Hct MCHC RDW MCV MCH Lymph % (Auto) [place] % (Auto) [place] # Eos # Lymph # (Auto) [place] # (Auto) Eos # (Auto) Seg Neutrophils % Seg Neuts % (Manual) Baso # (Auto) Lymphocytes % (Manual) Monocytes % (Manual) Eosinophils % (Manual) Basophils % (Manual) Seg Neutrophils # Seg Neutrophils # Man Lymphocytes # (Manual) Monocytes # (Manual) Eosinophils # (Manual) Nucleated RBC % Basophils # (Manual) PT 20.4 H INR 1.72 H APTT 40.6 H Heparin Anti-Xa Level > 2.00 H ABG pH POC ABG pO2 ABG pO2 ABG HCO3 ABG O2 Saturation ABG Base Excess POC ABG pCO2 ABG Hemoglobin ABG Oxyhemoglobin ABG Glucose Oxyhemoglobin Sodium Potassium Chloride Carbon Dioxide BUN Creatinine Glucose POC Glucose 150 H Lactic Acid Calcium Phosphorus Magnesium AST ALT Lactate Dehydrogenase CK-MB (CK-2) C-Reactive Protein NT-Pro-B Natriuret Pep Total Protein Albumin Arterial Blood Glucose Urine WBC (Auto) 01/21/20 01/21/20 01/21/20 00:30 05:47 05:59 WBC RBC Hgb Hct MCHC RDW MCV MCH Lymph % (Auto) [place] % (Auto) [place] # Eos # Lymph # (Auto) [place] # (Auto) Eos # (Auto) Seg Neutrophils % Seg Neuts % (Manual) Baso # (Auto) Lymphocytes % (Manual) Monocytes % (Manual) Eosinophils % (Manual) Basophils % (Manual) Seg Neutrophils # Seg Neutrophils # Man Lymphocytes # (Manual) Monocytes # (Manual) Eosinophils # (Manual) Nucleated RBC % Basophils # (Manual) PT INR APTT Heparin Anti-Xa Level 1.93 H ABG pH POC ABG pO2 ABG pO2 ABG HCO3 ABG O2 Saturation ABG Base Excess POC ABG pCO2 ABG Hemoglobin ABG Oxyhemoglobin ABG Glucose Oxyhemoglobin Sodium Potassium Chloride Carbon Dioxide BUN Creatinine Glucose POC Glucose 126 H 148 H Lactic Acid Calcium Phosphorus Magnesium AST ALT Lactate Dehydrogenase CK-MB (CK-2) C-Reactive Protein NT-Pro-B Natriuret Pep Total Protein Albumin Arterial Blood Glucose Urine WBC (Auto) 01/21/20 01/21/20 01/21/20 12:32 18:20 23:54 WBC RBC Hgb Hct MCHC RDW MCV MCH Lymph % (Auto) [place] % (Auto) [place] # Eos # Lymph # (Auto) [place] # (Auto) Eos # (Auto) Seg Neutrophils % Seg Neuts % (Manual) Baso # (Auto) Lymphocytes % (Manual) Monocytes % (Manual) Eosinophils % (Manual) Basophils % (Manual) Seg Neutrophils # Seg Neutrophils # Man Lymphocytes # (Manual) Monocytes # (Manual) Eosinophils # (Manual) Nucleated RBC % Basophils # (Manual) PT INR APTT Heparin Anti-Xa Level 1.28 H ABG pH POC ABG pO2 ABG pO2 ABG HCO3 ABG O2 Saturation ABG Base Excess POC ABG pCO2 ABG Hemoglobin ABG Oxyhemoglobin ABG Glucose Oxyhemoglobin Sodium Potassium Chloride Carbon Dioxide BUN Creatinine Glucose POC Glucose 112 H 146 H Lactic Acid Calcium Phosphorus Magnesium AST ALT Lactate Dehydrogenase CK-MB (CK-2) C-Reactive Protein NT-Pro-B Natriuret Pep Total Protein Albumin Arterial Blood Glucose Urine WBC (Auto) 01/22/20 01/22/20 01/22/20 04:45 04:45 05:48 WBC RBC Hgb 9.3 L Hct 29.0 L MCHC RDW MCV MCH Lymph % (Auto) [place] % (Auto) [place] # Eos # Lymph # (Auto) [place] # (Auto) Eos # (Auto) Seg Neutrophils % Seg Neuts % (Manual) Baso # (Auto) Lymphocytes % (Manual) Monocytes % (Manual) Eosinophils % (Manual) Basophils % (Manual) Seg Neutrophils # Seg Neutrophils # Man Lymphocytes # (Manual) Monocytes # (Manual) Eosinophils # (Manual) Nucleated RBC % Basophils # (Manual) PT INR APTT Heparin Anti-Xa Level 1.34 H ABG pH POC ABG pO2 ABG pO2 ABG HCO3 ABG O2 Saturation ABG Base Excess POC ABG pCO2 ABG Hemoglobin ABG Oxyhemoglobin ABG Glucose Oxyhemoglobin Sodium Potassium Chloride Carbon Dioxide BUN Creatinine Glucose POC Glucose 142 H Lactic Acid Calcium Phosphorus Magnesium AST ALT Lactate Dehydrogenase CK-MB (CK-2) C-Reactive Protein NT-Pro-B Natriuret Pep Total Protein Albumin Arterial Blood Glucose Urine WBC (Auto) 01/22/20 01/22/2020 08:09 08:22 09:58 WBC RBC Hgb Hct MCHC RDW MCV MCH Lymph % (Auto) [place] % (Auto) [place] # Eos # Lymph # (Auto) [place] # (Auto) Eos # (Auto) Seg Neutrophils % Seg Neuts % (Manual) Baso # (Auto) Lymphocytes % (Manual) Monocytes % (Manual) Eosinophils % (Manual) Basophils % (Manual) Seg Neutrophils # Seg Neutrophils # Man Lymphocytes # (Manual) Monocytes # (Manual) Eosinophils # (Manual) Nucleated RBC % Basophils # (Manual) PT 16.9 H INR 1.34 H APTT Heparin Anti-Xa Level ABG pH POC ABG pO2 ABG pO2 ABG HCO3 ABG O2 Saturation ABG Base Excess POC ABG pCO2 ABG Hemoglobin ABG Oxyhemoglobin ABG Glucose Oxyhemoglobin Sodium Potassium Chloride 97.8 L Carbon Dioxide BUN 29 H Creatinine Glucose 128 H POC Glucose 131 H Lactic Acid Calcium Phosphorus Magnesium AST ALT Lactate Dehydrogenase CK-MB (CK-2) C-Reactive Protein NT-Pro-B Natriuret Pep Total Protein Albumin Arterial Blood Glucose Urine WBC (Auto) 01/22/20 01/22/20 01/22/20 12:44 16:13 18:18 WBC RBC Hgb Hct MCHC RDW MCV MCH Lymph % (Auto) [place] % (Auto) [place] # Eos # Lymph # (Auto) [place] # (Auto) Eos # (Auto) Seg Neutrophils % Seg Neuts % (Manual) Baso # (Auto) Lymphocytes % (Manual) Monocytes % (Manual) Eosinophils % (Manual) Basophils % (Manual) Seg Neutrophils # Seg Neutrophils # Man Lymphocytes # (Manual) Monocytes # (Manual) Eosinophils # (Manual) Nucleated RBC % Basophils # (Manual) PT INR APTT Heparin Anti-Xa Level ABG pH POC ABG pO2 ABG pO2 ABG HCO3 ABG O2 Saturation ABG Base Excess POC ABG pCO2 ABG Hemoglobin ABG Oxyhemoglobin ABG Glucose Oxyhemoglobin Sodium Potassium Chloride Carbon Dioxide BUN Creatinine Glucose POC Glucose 156 H 133 H 155 H Lactic Acid Calcium Phosphorus Magnesium AST ALT Lactate Dehydrogenase CK-MB (CK-2) C-Reactive Protein NT-Pro-B Natriuret Pep Total Protein Albumin Arterial Blood Glucose Urine WBC (Auto) 01/22/20 01/23/20 01/23/20 23:22 05:37 12:59 WBC RBC Hgb Hct MCHC RDW MCV MCH Lymph % (Auto) [place] % (Auto) [place] # Eos # Lymph # (Auto) [place] # (Auto) Eos # (Auto) Seg Neutrophils % Seg Neuts % (Manual) Baso # (Auto) Lymphocytes % (Manual) Monocytes % (Manual) Eosinophils % (Manual) Basophils % (Manual) Seg Neutrophils # Seg Neutrophils # Man Lymphocytes # (Manual) Monocytes # (Manual) Eosinophils # (Manual) Nucleated RBC % Basophils # (Manual) PT INR APTT Heparin Anti-Xa Level ABG pH POC ABG pO2 ABG pO2 ABG HCO3 ABG O2 Saturation ABG Base Excess POC ABG pCO2 ABG Hemoglobin ABG Oxyhemoglobin ABG Glucose Oxyhemoglobin Sodium Potassium Chloride Carbon Dioxide BUN Creatinine Glucose POC Glucose 148 H 163 H 175 H Lactic Acid Calcium Phosphorus Magnesium AST ALT Lactate Dehydrogenase CK-MB (CK-2) C-Reactive Protein NT-Pro-B Natriuret Pep Total Protein Albumin Arterial Blood Glucose Urine WBC (Auto) 01/23/20 01/23/20 01/24/20 17:28 23:56 04:30 WBC RBC 3.46 L Hgb 8.8 L Hct 27.8 L MCHC RDW 18.2 H MCV 81 L MCH 25 L Lymph % (Auto) [place] % (Auto) 7.8 H [place] # Eos # Lymph # (Auto) [place] # (Auto) Eos # (Auto) Seg Neutrophils % Seg Neuts % (Manual) Baso # (Auto) Lymphocytes % (Manual) Monocytes % (Manual) Eosinophils % (Manual) Basophils % (Manual) Seg Neutrophils # Seg Neutrophils # Man Lymphocytes # (Manual) Monocytes # (Manual) Eosinophils # (Manual) Nucleated RBC % Basophils # (Manual) PT INR APTT Heparin Anti-Xa Level ABG pH POC ABG pO2 ABG pO2 ABG HCO3 ABG O2 Saturation ABG Base Excess POC ABG pCO2 ABG Hemoglobin ABG Oxyhemoglobin ABG Glucose Oxyhemoglobin Sodium Potassium Chloride Carbon Dioxide BUN Creatinine Glucose POC Glucose 165 H 177 H Lactic Acid Calcium Phosphorus Magnesium AST ALT Lactate Dehydrogenase CK-MB (CK-2) C-Reactive Protein NT-Pro-B Natriuret Pep Total Protein Albumin Arterial Blood Glucose Urine WBC (Auto) 01/24/20 01/24/20 01/24/20 04:30 07:18 12:06 WBC RBC Hgb Hct MCHC RDW MCV MCH Lymph % (Auto) [place] % (Auto) [place] # Eos # Lymph # (Auto) [place] # (Auto) Eos # (Auto) Seg Neutrophils % Seg Neuts % (Manual) Baso # (Auto) Lymphocytes % (Manual) Monocytes % (Manual) Eosinophils % (Manual) Basophils % (Manual) Seg Neutrophils # Seg Neutrophils # Man Lymphocytes # (Manual) Monocytes # (Manual) Eosinophils # (Manual) Nucleated RBC % Basophils # (Manual) PT INR APTT Heparin Anti-Xa Level ABG pH POC ABG pO2 ABG pO2 ABG HCO3 ABG O2 Saturation ABG Base Excess POC ABG pCO2 ABG Hemoglobin ABG Oxyhemoglobin ABG Glucose Oxyhemoglobin Sodium Potassium Chloride 97.9 L Carbon Dioxide BUN 31 H Creatinine Glucose 146 H POC Glucose 151 H 133 H Lactic Acid Calcium Phosphorus Magnesium AST ALT Lactate Dehydrogenase CK-MB (CK-2) C-Reactive Protein NT-Pro-B Natriuret Pep Total Protein Albumin Arterial Blood Glucose Urine WBC (Auto) 01/24/20 01/25/20 01/25/20 17:36 00:08 04:25 WBC RBC 3.50 L Hgb 8.7 L Hct 27.9 L MCHC 31 L RDW 18.2 H MCV 80 L MCH 25 L Lymph % (Auto) [place] % (Auto) 8.5 H [place] # Eos # Lymph # (Auto) [place] # (Auto) Eos # (Auto) Seg Neutrophils % Seg Neuts % (Manual) Baso # (Auto) Lymphocytes % (Manual) Monocytes % (Manual) Eosinophils % (Manual) Basophils % (Manual) Seg Neutrophils # Seg Neutrophils # Man Lymphocytes # (Manual) Monocytes # (Manual) Eosinophils # (Manual) Nucleated RBC % Basophils # (Manual) PT INR APTT Heparin Anti-Xa Level ABG pH POC ABG pO2 ABG pO2 ABG HCO3 ABG O2 Saturation ABG Base Excess POC ABG pCO2 ABG Hemoglobin ABG Oxyhemoglobin ABG Glucose Oxyhemoglobin Sodium Potassium Chloride Carbon Dioxide BUN Creatinine Glucose POC Glucose 133 H 129 H Lactic Acid Calcium Phosphorus Magnesium AST ALT Lactate Dehydrogenase CK-MB (CK-2) C-Reactive Protein NT-Pro-B Natriuret Pep Total Protein Albumin Arterial Blood Glucose Urine WBC (Auto) 01/25/20 01/25/20 01/25/20 04:25 05:38 11:52 WBC RBC Hgb Hct MCHC RDW MCV MCH Lymph % (Auto) [place] % (Auto) [place] # Eos # Lymph # (Auto) [place] # (Auto) Eos # (Auto) Seg Neutrophils % Seg Neuts % (Manual) Baso # (Auto) Lymphocytes % (Manual) Monocytes % (Manual) Eosinophils % (Manual) Basophils % (Manual) Seg Neutrophils # Seg Neutrophils # Man Lymphocytes # (Manual) Monocytes # (Manual) Eosinophils # (Manual) Nucleated RBC % Basophils # (Manual) PT INR APTT Heparin Anti-Xa Level ABG pH POC ABG pO2 ABG pO2 ABG HCO3 ABG O2 Saturation ABG Base Excess POC ABG pCO2 ABG Hemoglobin ABG Oxyhemoglobin ABG Glucose Oxyhemoglobin Sodium Potassium Chloride Carbon Dioxide BUN 30 H Creatinine Glucose 134 H POC Glucose 129 H 134 H Lactic Acid Calcium Phosphorus Magnesium AST ALT Lactate Dehydrogenase CK-MB (CK-2) C-Reactive Protein NT-Pro-B Natriuret Pep Total Protein Albumin Arterial Blood Glucose Urine WBC (Auto) 01/25/20 01/25/20 01/26/20 17:13 21:02 00:59 WBC RBC Hgb Hct MCHC RDW MCV MCH Lymph % (Auto) [place] % (Auto) [place] # Eos # Lymph # (Auto) [place] # (Auto) Eos # (Auto) Seg Neutrophils % Seg Neuts % (Manual) Baso # (Auto) Lymphocytes % (Manual) Monocytes % (Manual) Eosinophils % (Manual) Basophils % (Manual) Seg Neutrophils # Seg Neutrophils # Man Lymphocytes # (Manual) Monocytes # (Manual) Eosinophils # (Manual) Nucleated RBC % Basophils # (Manual) PT INR APTT Heparin Anti-Xa Level ABG pH POC ABG pO2 ABG pO2 57.5 L ABG HCO3 31.7 H ABG O2 Saturation 90.3 L ABG Base Excess 6.6 H POC ABG pCO2 ABG Hemoglobin 13.0 L ABG Oxyhemoglobin ABG Glucose Oxyhemoglobin 87.5 L Sodium Potassium Chloride Carbon Dioxide BUN Creatinine Glucose POC Glucose 124 H 196 H Lactic Acid Calcium Phosphorus Magnesium AST ALT Lactate Dehydrogenase CK-MB (CK-2) C-Reactive Protein NT-Pro-B Natriuret Pep Total Protein Albumin Arterial Blood Glucose Urine WBC (Auto) 01/26/20 01/26/20 03:20 05:46 WBC RBC Hgb 9.2 L Hct 29.4 L MCHC RDW MCV MCH Lymph % (Auto) [place] % (Auto) [place] # Eos # Lymph # (Auto) [place] # (Auto) Eos # (Auto) Seg Neutrophils % Seg Neuts % (Manual) Baso # (Auto) Lymphocytes % (Manual) Monocytes % (Manual) Eosinophils % (Manual) Basophils % (Manual) Seg Neutrophils # Seg Neutrophils # Man Lymphocytes # (Manual) Monocytes # (Manual) Eosinophils # (Manual) Nucleated RBC % Basophils # (Manual) PT INR APTT Heparin Anti-Xa Level ABG pH POC ABG pO2 ABG pO2 ABG HCO3 ABG O2 Saturation ABG Base Excess POC ABG pCO2 ABG Hemoglobin ABG Oxyhemoglobin ABG Glucose Oxyhemoglobin Sodium Potassium Chloride Carbon Dioxide BUN Creatinine Glucose POC Glucose 141 H Lactic Acid Calcium Phosphorus Magnesium AST ALT Lactate Dehydrogenase CK-MB (CK-2) C-Reactive Protein NT-Pro-B Natriuret Pep Total Protein Albumin Arterial Blood Glucose Urine WBC (Auto) Allied health notes reviewed: nursing
--- NOTE | 2020-01-26 09:33 | Progress Note ---
Assessment and Plan Assessment and plan: --Ischemic cardiomyopathy Cardiology is following, status post cardiac catheterization on 01/22/2020; Cor onary artery disease status post PCI and stent to the LAD Continue current cardiac medications --Acute on chronic hypoxemic respiratory failure; Patient has tracheostomy on vent Continue nebulizers, , trach care Wean off ventilator as tolerated Pulmonary critical following --Acute exacerbation of COPD; Patient is currently on ventilatory support Continue nebulizers --Left lower lobe PE; Continue Eliquis, ventilatory support --Acute right lower extremity DVT; Patient is on Eliquis --Bilateral multifocal pneumonia/community-acquired Completed antibiotics, improved --Severe sepsis/bilateral pneumonia: Completed antibiotics COVID-19 test; 11/24/2019; negative 11/26/2019; negative 12/29/2019: Negative --Paroxysmal atrial fibrillation; Now rate controlled, Stable on amiodarone and Eliquis --Acute on chronic combined systolic and diastolic congestive heart failure Ischemic cardiomyopathy left ventricular ejection fraction 40 to 45% --H/o CAD [[facility] 12/2018 in-stent restenosis] Patient is stable on current cardiac medications Patient is a 64-year-old male with known history of hypertension, COPD, history of coronary artery disease, CHF with ejection fraction of 20 to 25% in August 2018 presenting to the emergency room via EMS complaining of shortness of breath. Patient was found to be hypoxic and in respiratory distress. Patient was placed on CPAP in route to the hospital. Patient remained hypoxic on CPAP BiPAP ,subsequently was intubated. Work-up in the emergency room including chest x-ray reveals bilateral pneumonia. He had an elevated white count of 14 and also had an elevated BNP. sputum cultures positive for Pseudomonas, ID treated with cefepime and Vanco. His hospital course became complicated with acute PE, DVT, paroxysmal atrial fib - placed on chronic anticoagulation. Patient was difficult to wean off, status post trach and PEG, remains on mechanical ventilation with trach tube. He then developed partial small bowel obstruction valuated by general surgeon symptom improved with medical Mx, patient was briefly weaned off ventilatory support however, was in respiratory failure requiring full ventilatory support. Cardiac catheterization on 01/22/2020. No new issues overnight. --Hypertensive emergency; present on admission Reasonable blood pressures, continue current antihypertensives As needed medications --History of alcohol abuse/alcohol withdrawal; Was on CIWA protocol, now stable --Oropharyngeal dysphagia; status post PEG placement Continue PEG feeds per protocol --History of partial small bowel obstruction; resolved Surgery evaluated. --Obesity; BMI 34.7 Patient needs weight reduction when medically stable --Severe protein calorie malnutrition/hypoalbuminemia Nutrition supplements, dietitian following, PEG feeds --DVT prophylaxis;Eliquis --Full CODE STATUS 01/05; Pt stable. NGT output 650cc over 24 hours, bilious. No f/c, WBC within normal limits. cont NG suction and cont to hold TF 01/06: Abs series - mild improvement in small bowel distension in mid abdomen, normal gas/stool pattern in colon. NGT in duodenum. Continue to hold tube feeding, maintain NG tube with low intermittent suction. Patient's was updated by phone. Continue to provide supportive care and monitor clinically. 01/07: +BMs today and NGT/PEG output appears more gastric today. Plan to clamp NGT, if tolerates start TF from tomorrow. cont supportive care. 01/08; Gastric output decreased over last 24 hours. NGT has been clamped x 24 hours. plan to dc NGT and to start TTF via PEG - vital HF @10cc/hr 01/09: clinically stable, tolerating TF. monitor BMP, wean off from vent as tolerated clinically stable, on TF. wean off vent as tolerated 01/11: wean off from vent, cont to monitor, on TF 01/12: wean off from vent, cont to monitor, on TF. need placement - unfunded 01/13; remains on ventilatory support, unable to wean, DC planning possible LT AC, unfunded 01/14; patient of ventilatory support, T-piece tracheostomy on oxygen, LTAC placement per case management 01/16; tracheostomy, patient on full ventilatory support, wean off vent support as tolerated, pending LTAC placement, social financial issues 01/17; awaiting LTAC placement, insurance and financial issues 01/18; patient tracheostomy remains on ventilatory support 01/19; wean off ventilator as tolerated 01/20; remains on ventilatory support, patient complains of intermittent chest pain, cardiology recommend left heart catheterization tomorrow 01/22/2020. Patient for left heart catheterization per cardiology. Patient remains on AC mode ventilation rate 12, tidal volume 450, FiO2 30% and PEEP of 6. Continue tracheostomy care, airway management and secretion control. 01/23/2020. Cardiac catheterization completed yesterday revealed widely patent previous LAD stent with mild nonobstructive atherosclerosis of the right mid coronary artery and rest of the coronary system was without significant atherosclerosis. The left ventricle ejection fraction was mildly impaired at 40 to 45%. There was some hypokinesis of the basal inferior wall suggestive of previous or recent infarct. Continue GDMT for coronary artery disease including beta blockers, topical nitrates, statin and Plavix. Continue Eliquis for paroxysmal atrial fibrillation and PE. Continue diuresis with Lasix and follow electrolytes closely. Continue Robinul and scopolamine for secretion control and daily SBT per pulmonary. Also, continue bronchodilators and routine trach care/airway management. T-piece trials per pulmonary as tolerated. 01/24/2020. Recent cardiac catheterization has documented widely patent left anterior descending artery stent with minimal nonobstructive diffuse coronary artery disease in the rest of the coronary arteries. Evidence of ischemic cardiomyopathy with inferior wall hypokinesis. Continue with guideline directed medical therapy. Continue Robinul and scopolamine for secretion control and daily SBT per pulmonary. Continue bronchodilators and routine trach care/airway management. T-piece trials per pulmonary as tolerated. 01/25/2020. Continue with guideline directed medical therapy for systolic heart failure. Cardiac catheterization revealed evidence of ischemic cardiomyopathy with inferior wall hypokinesis (EF 40-45%). Patient currently on T-piece with oxygen 10 L/min FiO2 40%. Continue Robinul and scopolamine for secretion control. Continue bronchodilators and routine trach care/airway management. 01/26/2020;Continue with guideline directed medical therapy for systolic heart failure. Cardiac catheterization revealed evidence of ischemic cardiomyopathy with inferior wall hypokinesis (EF 40-45%). Patient currently on T-piece with oxygen 10 L/min FiO2 40%. Continue Robinul and scopolamine for secretion control. Continue bronchodilators and routine trach care/airway management. The high probability of a clinically significant, sudden or life threatening deterioration of the [Respiratory, cardiovascular & neurological] system(s) required my full and direct attention, intervention and personal management. The aggregate critical care time was [32] minutes without overlap. Time includes spent on [x] Data Review and interpretation [x] Patient assessment and monitoring of vital signs [x] Documentation [x] Medication orders and management History Interval history: Patient was seen and evaluated this morning Patient is intubated and he open his eyes Patient is on trach Hospitalist Physical - Physical exam Narrative exam: Patient is on trach Patient is obese Vital signs as documented. Head exam is unremarkable. No scleral icterus . Neck is without jugular venous distension, thyromegaly, or carotid bruits. Lungs intubated and on mechanical ventilator Cardiac exam reveals regular rate and Rhythm. Abdominal exam reveals normal bowel sounds, nontender, no organomegaly. Extremities are nonedematous and both femoral and pedal pulses are normal. BLOW MOLDER: Open his eyes on command. - Constitutional Vitals: Temp Pulse Resp BP Pulse Ox 97.6 F 94 H 25 H 106/78 95 01/26/20 08:00 01/26/20 08:00 01/26/20 08:00 01/26/20 08:00 01/26/20 08:17 General appearance: Present: well-nourished, obese, other (Tracheostomy on vent) HEART Score - HEART Score Troponin: Troponin T < 0.010 ng/mL (0.00-0.029) 01/19/20 01:35 Results - Labs CBC & Chem 7: 01/26/20 03:20 01/25/20 04:25 Labs: Laboratory Last Values WBC 8.9 K/mm3 (4.5-11.0) 01/25/20 04:25 RBC 3.50 M/mm3 (3.65-5.03) L 01/25/20 04:25 Hgb 9.2 gm/dl (11.8-15.2) L 01/26/20 03:20 Hct 29.4 % (35.5-45.6) L 01/26/20 03:20 MCV 80 fl (84-94) L 01/25/20 04:25 MCH 25 pg (28-32) L 01/25/20 04:25 MCHC 31 % (32-34) L 01/25/20 04:25 RDW 18.2 % (13.2-15.2) H 01/25/20 04:25 Plt Count 284 K/mm3 (140-440) 01/26/20 03:20 Lymph % (Auto) 24.4 % (13.4-35.0) 01/25/20 04:25 Ware % (Auto) 8.5 % (0.0-7.3) H 01/25/20 04:25 Eos % (Auto) 3.6 % (0.0-4.3) 01/25/20 04:25 Baso % (Auto) 0.7 % (0.0-1.8) 01/25/20 04:25 Lymph # (Auto) 2.2 K/mm3 (1.2-5.4) 01/25/20 04:25 Ware # (Auto) 0.8 K/mm3 (0.0-0.8) 01/25/20 04:25 Eos # (Auto) 0.3 K/mm3 (0.0-0.4) 01/25/20 04:25 Baso # (Auto) 0.1 K/mm3 (0.0-0.1) 01/25/20 04:25 Add Manual Diff Complete 12/19/19 11:32 Total Counted 100 12/19/19 11:32 Seg Neutrophils % 62.8 % (40.0-70.0) 01/25/20 04:25 Seg Neuts % (Manual) 82.0 % (40.0-70.0) H 12/19/19 11:32 Band Neutrophils % 0 % 12/19/19 11:32 Lymphocytes % (Manual) 10.0 % (13.4-35.0) L 12/19/19 11:32 Reactive Lymphs % (Man) 0 % 12/19/19 11:32 Monocytes % (Manual) 6.0 % (0.0-7.3) 12/19/19 11:32 Eosinophils % (Manual) 2.0 % (0.0-4.3) 12/19/19 11:32 Basophils % (Manual) 0 % (0.0-1.8) 12/19/19 11:32 Metamyelocytes % 0 % 12/19/19 11:32 Myelocytes % 0 % 12/19/19 11:32 Promyelocytes % 0 % 12/19/19 11:32 Blast Cells % 0 % 12/19/19 11:32 Nucleated RBC % 1.0 % (0.0-0.9) H 12/19/19 11:32 Seg Neutrophils # 5.6 K/mm3 (1.8-7.7) 01/25/20 04:25 Seg Neutrophils # Man 12.0 K/mm3 (1.8-7.7) H 12/19/19 11:32 Band Neutrophils # 0.0 K/mm3 12/19/19 11:32 Lymphocytes # (Manual) 1.5 K/mm3 (1.2-5.4) 12/19/19 11:32 Abs React Lymphs (Man) 0.0 K/mm3 12/19/19 11:32 Monocytes # (Manual) 0.9 K/mm3 (0.0-0.8) H 12/19/19 11:32 Eosinophils # (Manual) 0.3 K/mm3 (0.0-0.4) 12/19/19 11:32 Basophils # (Manual) 0.0 K/mm3 (0.0-0.1) 12/19/19 11:32 Metamyelocytes # 0.0 K/mm3 12/19/19 11:32 Myelocytes # 0.0 K/mm3 12/19/19 11:32 Promyelocytes # 0.0 K/mm3 12/19/19 11:32 Blast Cells # 0.0 K/mm3 12/19/19 11:32 WBC Morphology Not Reportable 12/19/19 11:32 Hypersegmented Neuts Not Reportable 12/19/19 11:32 Hyposegmented Neuts Not Reportable 12/19/19 11:32 Hypogranular Neuts Not Reportable 12/19/19 11:32 Smudge Cells Not Reportable 12/19/19 11:32 Toxic Granulation Not Reportable 12/19/19 11:32 Toxic Vacuolation Not Reportable 12/19/19 11:32 Dohle Bodies Not Reportable 12/19/19 11:32 Pelger-Huet Anomaly Not Reportable 12/19/19 11:32 Hector Rods Not Reportable 12/19/19 11:32 Platelet Estimate Consistent w auto 12/19/19 11:32 Clumped Platelets Not Reportable 12/19/19 11:32 Plt Clumps, EDTA Not Reportable 12/19/19 11:32 Large Platelets Not Reportable 12/19/19 11:32 Giant Platelets Not Reportable 12/19/19 11:32 Platelet Satelliting Not Reportable 12/19/19 11:32 Plt Morphology Comment Not Reportable 12/19/19 11:32 RBC Morphology Not Reportable 12/19/19 11:32 Dimorphic RBCs Not Reportable 12/19/19 11:32 Polychromasia Not Reportable 12/19/19 11:32 Hypochromasia Few 12/19/19 11:32 Poikilocytosis Not Reportable 12/19/19 11:32 Anisocytosis 1+ 12/19/19 11:32 Microcytosis Few 12/19/19 11:32 Macrocytosis Few 12/19/19 11:32 Spherocytes Not Reportable 12/19/19 11:32 Pappenheimer Bodies Not Reportable 12/19/19 11:32 Sickle Cells Not Reportable 12/19/19 11:32 Target Cells Not Reportable 12/19/19 11:32 Tear Drop Cells Not Reportable 12/19/19 11:32 Ovalocytes Not Reportable 12/19/19 11:32 Helmet Cells Not Reportable 12/19/19 11:32 [place] Bodies Not Reportable 12/19/19 11:32 [place] Rings Not Reportable 12/19/19 11:32 Oc Cells Not Reportable 12/19/19 11:32 Bite Cells Not Reportable 12/19/19 11:32 Crenated Cell Not Reportable 12/19/19 11:32 Elliptocytes Not Reportable 12/19/19 11:32 Acanthocytes (Spur) Not Reportable 12/19/19 11:32 Rouleaux Not Reportable 12/19/19 11:32 Hemoglobin C Crystals Not Reportable 12/19/19 11:32 Schistocytes Not Reportable 12/19/19 11:32 Malaria parasites Not Reportable 12/19/19 11:32 Clifford Bodies Not Reportable 12/19/19 11:32 Hem Pathologist Commnt No 12/19/19 11:32 PT 16.9 Sec. (12.2-14.9) H 01/22/20 09:58 INR 1.34 (0.87-1.13) H 01/22/20 09:58 APTT 31.5 Sec. (24.2-36.6) 01/22/20 09:58 Heparin Anti-Xa Level 1.34 U.I./ml (0.3-0.7) H 01/22/20 04:45 ABG pH 7.447 pH Units (7.350-7.450) 01/25/20 21:02 POC ABG pCO2 45.6 mmHg (32.0-48.0) 01/12/20 13:58 ABG pCO2 47.0 mm Hg 01/25/20 21:02 POC ABG pO2 76.6 mmHg (83-108) L 01/12/20 13:58 ABG pO2 57.5 mm Hg (80.0-90.0) L 01/25/20 21:02 POC ABG HCO3 31.2 01/12/20 13:58 ABG HCO3 31.7 mmol/L (20.0-26.0) H 01/25/20 21:02 ABG O2 Saturation 90.3 % (95.0-99.0) L 01/25/20 21:02 ABG O2 Content 16.0 (0.0-44) 01/25/20 21:02 POC ABG Base Excess 6.5 01/12/20 13:58 ABG Base Excess 6.6 mmol/L (-2.0-3.0) H 01/25/20 21:02 ABG Hemoglobin 13.0 gm/dl (14.0-18.0) L 01/25/20 21:02 ABG Oxyhemoglobin 84 (94-98) L 12/22/19 03:22 ABG Carboxyhemoglobin 2.5 % (0.0-5.0) 01/25/20 21:02 ABG Methemoglobin 0.6 % (0.0-1.5) 01/25/20 21:02 ABG Sodium 136.8 mmol/L (136.0-145.0) 01/12/20 13:58 ABG Potassium 3.7 mmol/L (3.40-4.50) 01/12/20 13:58 ABG Chloride 103.0 mmol/L (98-107) 01/12/20 13:58 ABG Glucose 99 mg/dL (65-95) H 01/12/20 13:58 Oxyhemoglobin 87.5 % (95.0-99.0) L 01/25/20 21:02 Carboxyhemoglobin 0.7 (0.5-1.5) 12/22/19 03:22 FiO2 40 % 01/25/20 21:02 Sodium 142 mmol/L (137-145) 01/25/20 04:25 Potassium 4.2 mmol/L (3.6-5.0) 01/25/20 04:25 Chloride 99.5 mmol/L (98-107) 01/25/20 04:25 Carbon Dioxide 30 mmol/L (22-30) 01/25/20 04:25 Anion Gap 17 mmol/L 01/25/20 04:25 BUN 30 mg/dL (9-20) H 01/25/20 04:25 Creatinine 0.8 mg/dL (0.8-1.3) 01/25/20 04:25 Estimated GFR > 60 ml/min 01/25/20 04:25 BUN/Creatinine Ratio 38 % 01/25/20 04:25 Glucose 134 mg/dL (75-100) H 01/25/20 04:25 POC Glucose 141 mg/dL (70-105) H 01/26/20 05:46 Lactic Acid 2.50 mmol/L (0.7-2.0) H* 11/24/19 10:37 Magnesium 2.60 mg/dL (1.7-2.3) H 12/07/19 12:41 Calcium 9.3 mg/dL (8.4-10.2) 01/25/20 04:25 Ferritin 84.4 ng/mL (30.0-300.0) 11/24/19 04:53 Direct Bilirubin < 0.2 mg/dL (0-0.2) 12/08/19 03:55 Indirect Bilirubin 0.2 mg/dL 12/08/19 03:55 Phosphorus 3.40 mg/dL (2.5-4.5) 01/12/20 12:01 Total Bilirubin 0.50 mg/dL (0.1-1.2) 01/12/20 00:23 Total Creatine Kinase 141 units/L (55-170) 11/24/19 02:53 CK-MB (CK-2) 4.3 ng/mL (0.0-4.0) H 11/24/19 02:53 AST 16 units/L (5-40) 01/12/20 00:23 ALT 22 units/L (7-56) 01/12/20 00:23 CK-MB (CK-2) Rel Index 3.0 (0-4) 11/24/19 02:53 Alkaline Phosphatase 59 units/L (35-129) 01/12/20 00:23 C-Reactive Protein 8.50 mg/dL (0.00-1.30) H 12/01/19 12:16 Lactate Dehydrogenase 228 units/L (91-180) H 12/19/19 04:45 Troponin T < 0.010 ng/mL (0.00-0.029) 01/19/20 01:35 NT-Pro-B Natriuret Pep 3866 pg/mL (0-900) H 01/01/20 10:40 Total Protein 6.3 g/dL (6.3-8.2) 01/12/20 00:23 Albumin 2.6 g/dL (3.9-5) L 01/12/20 00:23 Albumin/Globulin Ratio 0.7 % 01/12/20 00:23 Procalcitonin 0.76 ng/mL (<0.15) 01/01/20 10:40 Arterial Blood Glucose 99 mg/dL (65-95) H 01/12/20 13:58 Arterial Blood Ionized Calcium 4.8 mg/dL (4.6-5.3) 01/12/20 13:58 Urine Color Cecy (Yellow) 12/31/19 18:04 Urine Turbidity Clear (Clear) 12/31/19 18:04 Urine pH 5.0 (5.0-7.0) 12/31/19 18:04 Ur Specific Winner 1.023 (1.003-1.030) 12/31/19 18:04 Urine Protein <15 mg/dl mg/dL (Negative) 12/31/19 18:04 Urine Glucose (UA) Neg mg/dL (Negative) 12/31/19 18:04 Urine Ketones Neg mg/dL (Negative) 12/31/19 18:04 Urine Blood Neg (Negative) 12/31/19 18:04 Urine Bacteria (Auto) 1+ /HPF (Negative) 12/03/19 06:03 Urine Nitrite Neg (Negative) 12/31/19 18:04 Urine Bilirubin Neg (Negative) 12/31/19 18:04 Urine Urobilinogen 4.0 mg/dL (<2.0) 12/31/19 18:04 Ur Leukocyte Esterase Neg (Negative) 12/31/19 18:04 Urine WBC (Auto) 2.0 /HPF (0.0-6.0) 12/31/19 18:04 Urine RBC (Auto) 3.0 /HPF (0.0-6.0) 12/31/19 18:04 U Epithel Cells (Auto) 2.0 /HPF (0-13.0) 12/31/19 18:04 Urine Mucus 1+ /HPF 12/31/19 18:04 Vancomycin Trough 14.2 ug/mL (5.0-20.0) 12/13/19 15:01 Coronavirus (PCR) Negative (Negative) 12/29/19 10:07 Blood Type O POSITIVE 01/21/20 13:00 Antibody Screen Negative 01/21/20 13:00 - Diagnostic Impressions Diagnostic Impressions: Echocardiogram 11/29/19 07:37 Transthoracic Echocardiogram Indication: CHF BP: 116/72 HR: 33 Conclusions *The study is technically limited due to poor acoustic windows. *Global left ventricular systolic function is normal. *The estimated ejection fraction is 50-55%. *Mild concentric left ventricular hypertrophy is observed. *There is trace of mitral regurgitation. *There is mild tricuspid regurgitation. Findings Procedure Info: The study quality is poor. The study is technically limited due to poor acoustic windows. The study is technically limited due to patient body habitus. Left Ventricle: The left ventricular chamber size is normal. Mild concentric left ventricular hypertrophy is observed. Global left ventricular systolic function is normal. The estimated ejection fraction is 50-55%. Left Atrium: The left atrial chamber size is normal. Right Ventricle: The right ventricular cavity size is normal. Right Atrium: The right atrial cavity size is normal. Aortic Valve: The aortic valve leaflets are moderately thickened. There is trace of aortic regurgitation. There is no evidence of aortic stenosis. Mitral Valve: The mitral valve leaflets are mildly thickened. There is trace of mitral regurgitation. There is no evidence of mitral stenosis. Tricuspid Valve: There is mild tricuspid regurgitation. No pulmonary hypertension is noted. Pulmonic Valve: There is trace pulmonic regurgitation. Pericardium: There is no pericardial effusion. Aorta: There is no dilatation of the aortic root. Venous: The inferior vena cava appears normal in size. Contrast: Definity was used to optimize study. Intravenous contrast was used to enhance endocardial border definition. Measurements Chambers 2D Name Value Normal Range Ao root diameter (2D) 3.4 cm (2 - 3.7) Aortic Valve Name Value Normal Range AV Vmax 0.98 m/sec - AV VTI 16.76 cm - AV peak gradient 3.83 mmHg - AV mean gradient 2.57 mmHg - LVOT diameter 3.11 cm - LVOT Vmax 0.68 m/sec - LVOT VTI 11.52 cm - LVOT peak gradient 1.84 mmHg - LVOT mean gradient 1.27 mmHg - SV LVOT 87.31 ml - MALOU (continuity Vmax) 5.24 cm2 - MALOU (continuity VTI) 5.21 cm2 - Tricuspid Valve Name Value Normal Range IVC diameter 2.24 cm (1.2 - 2.3) Hoffman/IV: Voiding Method Condom Catheter IV Catheter Type [Right INT / Saline Lock Forearm] IV Catheter Type [Right Hand] Peripheral IV IV Catheter Type [Right Upper INT / Saline Lock arm] IV Catheter Type [Left Upper Mid-line arm] IV Catheter Type [Left Forearm INT / Saline Lock ] IV Catheter Type [Left Hand] INT / Saline Lock IV Catheter Type [Left Wrist] INT / Saline Lock IV Catheter Type [Right Peripheral IV Antecubital] Active Medications - Current Medications Current Medications: Generic Name Dose Route Start Last Admin Trade Name Freq PRN Reason Stop Dose Admin Acetaminophen 650 mg 12/31/19 11:43 01/14/20 08:27 Tylenol FEEDTUBE 650 mg Q6H PRN Administration Pain, Mild (1-3) Amiodarone HCl 200 mg 01/21/20 06:00 01/25/20 11:02 Cordarone PO 200 mg QDAY CAR Administration Lipase/Protease/Amylase 1 each 01/09/20 12:01 Pancrepetr Betancourt 10,500 Unit FEEDTUBE PRN PRN For Clogged Feeding Tube Apixaban 5 mg 01/22/20 22:00 01/25/20 21:06 Eliquis PO 5 mg Q12HR CAR Administration Protocol Atorvastatin Calcium 40 mg 01/20/20 22:00 01/25/20 21:06 Lipitor PO 40 mg QHS CAR Administration Bisacodyl 10 mg 01/06/20 13:00 01/25/20 12:47 Dulcolax [place] Not Given DAILY ACR Clopidogrel Bisulfate 75 mg 01/21/20 06:00 01/25/20 11:03 Plavix PO 75 mg QDAY CAR Administration Docusate Sodium 100 mg 12/02/19 22:00 01/25/20 21:05 Colace FEEDTUBE 100 mg BID CAR Administration Famotidine 20 mg 01/12/20 10:00 01/25/20 21:06 Pepcid PO 20 mg BID CAR Administration Furosemide 20 mg 01/20/20 06:00 01/26/20 05:33 Lasix IV 20 mg 0600,1800 CAR Administration Glycopyrrolate 2 mg 01/12/20 22:00 01/25/20 21:05 Glycopyrrolate PO 2 mg BID CAR Administration Haloperidol Lactate 5 mg 12/25/19 10:00 01/22/20 11:35 Haldol IV 5 mg Q6H PRN Administration Unrespon. to mult. doses BZD's Hydrophilic Ointment 1 applic 01/17/20 15:26 Vaseline Lip Therapy TP DIRECT PRN Dry Lips Lorazepam 2 mg 12/25/19 10:00 01/26/20 00:21 Ativan IV 2 mg Q6H PRN Administration AGITATION Magnesium Hydroxide 30 ml 01/14/20 13:35 01/22/20 11:32 Milk Of Magnesia PO 30 ml QDAY PRN Administration Constip unreliev by MOM/or NPO Metoprolol Tartrate 5 mg 01/11/20 08:00 01/22/20 02:10 Metoprolol IV 5 mg Q6H PRN Administration SEE INSTRUCTIONS Metoprolol Tartrate 25 mg 01/11/20 13:00 01/26/20 06:06 Metoprolol PO 25 mg Q6H CAR Administration Morphine Sulfate 2 mg 01/06/20 15:41 01/24/20 22:40 Morphine IV 2 mg Q4H PRN Administration Pain, Moderate (4-6) Nitroglycerin 0.4 mg 01/19/20 21:09 01/20/20 03:03 Nitrostat SL 0.4 mg .Q5MIN PRN Administration Chest Pain Nitroglycerin 0.4 mg 01/21/20 06:00 01/26/20 05:33 Nitro Dur TD 0.4 mg QDAY@0600 CAR Administration Ondansetron HCl 4 mg 01/05/20 14:37 01/24/20 10:53 Zofran IV 4 mg Q8H PRN Administration Nausea And Vomiting Polyethylene Glycol 17 gm 12/04/19 22:00 01/25/20 21:05 Miralax 3350 PO 17 gm QHS CAR Administration Quetiapine Fumarate 300 mg 01/13/20 22:00 01/25/20 21:06 Seroquel PO 300 mg BID CAR Administration Scopolamine 1 each 01/07/20 20:00 01/07/20 21:08 Transderm-Scop TD 1 each Q72HR CAR Administration Simple Syrup 15 ml 01/09/20 12:01 Simple Syrup FEEDTUBE PRN PRN Hypoglycemia Simple Syrup 30 ml 01/09/20 12:01 Simple Syrup FEEDTUBE PRN PRN Hypoglycemia Sodium Bicarbonate 325 mg 01/09/20 12:01 Sodium Bicarbonate FEEDTUBE PRN PRN For Clogged Feeding Tube Sodium Chloride 10 ml 11/24/19 10:00 01/25/20 21:07 Sodium Chloride Flush Syringe 10 Ml IV 10 ml BID CAR Administration Tamsulosin HCl 0.8 mg 12/20/19 22:00 01/25/20 21:06 Flomax PO 0.8 mg QHS CAR Administration Nutrition/Malnutrition Assess - Dietary Evaluation Nutrition/Malnutrition Findings: Nutrition Notes Start: 11/24/19 12:22 Freq: Status: Active Protocol: Document 01/22/20 11:28 HEATHER (Rec: 01/22/20 11:43 HEATHER [id number]) Co-Sign 01/22/20 11:28 LP Nutrition Notes Initial or Follow up Reassessment Current Diagnosis Coronary Artery Disease,Heart Failure,Respiratory Failure, Stroke,Hyperlipidemia Other Pertinent Diagnosis Partial SBO, pneu Current Diet NPO Labs/Tests No new labs Pertinent Medications Lasix (not given) Height 6 ft 2 in Weight 116 kg [place] Body Weight (kg) 86.36 BMI 32.8 Weight Status Overweight Subjective/Other Information F/u POC. Respiratory therapist visited today. Pt alert but remains on mechanical ventilation through trach. Noted emesis from RN note. Per RN, pt has gag reflex when he needs more suctioning. TF is being tolerated. RN okay with restarting TF at 70ml/hr. Percent of energy/protein needs met: 0%/0% Burn Absent Trauma Absent GI Symptoms None Current % PO Negligible Minimum of two criteria Yes Muscle Mass Mild Depletion (non-severe) Fluid Accumulation Mild (non-severe) Reduced Shooter'S Helper Strength Measurably Reduced (severe) #2 Nutrition Diagnosis Malnutrition Diagnosis Progress(for reassessment Continues documentation) #1 Nutrition Diagnosis Inadequate oral intake Diagnosis Progress(for reassessment Continues documentation) Is patient on ventilator? Yes Is Patient Ambulatory and/or Out of Bed No REE-([facility]-confined to bed) 2434.356 Kcal/Kg value to use for calculation 16 Approximate Energy Requirements Using 1856 kcal/Kg Calculation Used for Recommendations Kcal/kg Additional Notes Protein needs are up to 162g ( 2g/kg IBW) Fluid needs are 1.5L [ End ] Nutrition Intervention Change Diet Order: Continue TF Nutrition Support: Vital HP at 70ml/hr (goal rate ) Flush 50ml q4h or per MD Kcal 1,680 Protein (gm) 105 Fluid (mL) 1,409 Goal #1 Meet at least 75% of pt's energy and protein needs Anticipated Discharge Needs: unable to determine Follow-Up By: 01/26/20 Additional Comments F/u stable TF and wt
[2020-01-26] MEDS: AMIODARONE 200 MG TAB PO SCH (10:08)
[2020-01-26] MEDS: QUEtiapine 100 MG TAB PO SCH ×2 (10:08→21:39)
[2020-01-26] MEDS: FAMOTIDINE 20 MG TAB PO SCH ×2 (10:09→21:40)
[2020-01-26] MEDS: GLYCOPYRROLATE 2 MG TAB PO SCH ×2 (10:09→21:40)
[2020-01-26] MEDS: APIXABAN 5 MG TAB PO SCH ×2 (10:09→21:40)
[2020-01-26] MEDS: CLOPIDOGREL 75 MG TAB PO SCH (10:09)
[2020-01-26] MEDS: DOCUSATE SODIUM 100 MG/10 ML ORAL LIQD FEEDTUBE SCH ×2 (10:09→21:40)
[2020-01-26] MEDS: MORPHINE 2 MG/1 ML INJ IV PRN ×2 (10:23→18:37)
--- NOTE | 2020-01-26 11:42 | Progress Note ---
Assessment and Plan Chest pain, resolved LHC done 01/22/20 widely patent previous LAD stent. We found mild nonobstructive atherosclerosis of the mid right coronary artery. Otherwise the rest of the coronary system was without significant atherosclerosis. LVEF 40 to 45%. There was some hypokinesis of the basal inferior wall suggestive of previous or recent infarct. ECG done 01/19/20 shows sinus rhythm with low voltage QRS and subtle ST segment elevations in the inferolateral leads that suggested possible concern for an acute injury at that time. Atrial fibrillation, paroxysmal on amiodarone and metoprolol currently in sinus rhythm Ischemic Cardiomyopathy re-echo this presentation reports an LVEF 40-45%. echo 08/2018: decreased LVEF 20-25%. Hx of CAD LHC 12/2018: mild in-stent restenosis. No significant residual disease. Multifocal pneumonia negative COVID-19 test x 3 Chronic Respiratory failure s/p trach History of COPD Acute PE/DVT -on Eliquis Anemia Partial SBO vs ileus Recommend: Continue guideline directed medical therapy for coronary artery disease and paroxysmal atrial fibrillation. Otherwise, conservative cardiac management. Subjective Date of service: 01/26/20 Principal diagnosis: Ac hypoxemic resp failure; Pneumonia; PUI COVID-19; CHF; COPD; HTN Interval history: Patient is alert, resting in bed comfortably. Denies chest pain. Objective Vital Signs Temp Pulse Pulse Resp BP Pulse Ox Pulse Ox 01/26/20 08:17 95 01/26/20 08:00 97.6 F 93 H 94 H 18 106/78 96 96 01/26/20 07:00 93 H 22 115/79 01/26/20 06:06 99 H 117/85 01/26/20 06:00 98 H 47 H 117/85 96 01/26/20 05:33 97 H 114/80 01/26/20 05:00 95 H 19 114/80 97 01/26/20 04:55 95 H 113/82 97 01/26/20 04:54 97 01/26/20 04:00 97 H 97 H 30 H 113/82 94 01/26/20 03:47 98.8 F 01/26/20 03:00 99 H 29 H 138/87 96 01/26/20 02:00 93 H 33 H 133/79 97 01/26/20 01:00 92 H 26 H 128/80 97 01/26/20 00:45 93 H 108/90 98 01/26/20 00:21 103 H 108/90 01/26/20 00:00 97 H 100 H 21 106/94 89 01/25/20 23:51 98.8 F 01/25/20 23:10 97 H 25 H 106/94 97 01/25/20 23:00 98 H 27 H 115/88 91 01/25/20 22:00 92 H 27 H 115/88 92 01/25/20 21:00 92 H 21 103/79 94 01/25/20 20:52 92 H 113/76 92 01/25/20 20:48 92 01/25/20 20:00 97.7 F 105 H 103 H 25 H 123/78 89 01/25/20 19:07 119 H 123/78 01/25/20 19:00 111 H 21 129/88 87 01/25/20 18:00 132 H 26 H 129/88 95 96 01/25/20 17:00 102 H 26 H 132/79 95 01/25/20 16:01 94 H 31 H 137/83 94 01/25/20 16:00 97.6 F 95 H 95 H 37 H 97 01/25/20 15:00 87 23 127/76 94 01/25/20 14:01 122 H 22 149/96 93 01/25/20 13:51 118 H 149/96 01/25/20 13:00 97 H 22 149/96 93 01/25/20 12:00 97.4 F L 98 H 98 H 28 H 149/96 94 - Physical Examination General: Other (awake, s/p trach) HEENT: Positive: PERRL Cardiac: Positive: Reg Rate and Rhythm Neuro: Positive: Weakness Extremities: Absent: edema - Labs and Meds CBC 01/26/20 Range/Units 03:20 Hgb 9.2 L (11.8-15.2) gm/dl Hct 29.4 L (35.5-45.6) % Plt Count 284 (140-440) K/mm3 - Allied health notes Allied health notes reviewed: nursing
[2020-01-26] MEDS: POLYETHYLENE GLYCOL 3350 17 GM POWDER PO SCH (21:40)
[2020-01-26] MEDS: TAMSULOSIN 0.4 MG CAP PO SCH (21:40)
[2020-01-27] MEDS: METOPROLOL TARTRATE 25 MG TAB PO SCH ×4 (01:54→18:28)
[2020-01-27] MEDS: LORazepam 2 MG/ML VIAL IV PRN (01:54)
[2020-01-27] MEDS: NITROGLYCERIN 0.4 MG PATCH 24HR TD SCH (06:05)
[2020-01-27 06:31] LABS: Blood Urea Nitrogen 30 mg/dL (9-20); Calcium 9.2 mg/dL (8.4-10.2); Hemolysis Index 10
[2020-01-27 06:34] LABS: BUN/Creatinine Ratio 43
--- NOTE | 2020-01-27 09:29 | Progress Note ---
Assessment and Plan Assessment and plan: --Ischemic cardiomyopathy Cardiology is following, status post cardiac catheterization on 01/22/2020; Cor onary artery disease status post PCI and stent to the LAD Continue current cardiac medications --Acute on chronic hypoxemic respiratory failure; Patient has tracheostomy on vent Continue nebulizers, , trach care Wean off ventilator as tolerated Pulmonary critical following --Acute exacerbation of COPD; Patient is currently on ventilatory support Continue nebulizers --Left lower lobe PE; Continue Eliquis, ventilatory support --Acute right lower extremity DVT; Patient is on Eliquis --Bilateral multifocal pneumonia/community-acquired Completed antibiotics, improved --Severe sepsis/bilateral pneumonia: Completed antibiotics COVID-19 test; 11/24/2019; negative 11/26/2019; negative 12/29/2019: Negative --Paroxysmal atrial fibrillation; Now rate controlled, Stable on amiodarone and Eliquis --Acute on chronic combined systolic and diastolic congestive heart failure Ischemic cardiomyopathy left ventricular ejection fraction 40 to 45% --H/o CAD [[facility] 12/2018 in-stent restenosis] Patient is stable on current cardiac medications Patient is a 64-year-old male with known history of hypertension, COPD, history of coronary artery disease, CHF with ejection fraction of 20 to 25% in August 2018 presenting to the emergency room via EMS complaining of shortness of breath. Patient was found to be hypoxic and in respiratory distress. Patient was placed on CPAP in route to the hospital. Patient remained hypoxic on CPAP BiPAP ,subsequently was intubated. Work-up in the emergency room including chest x-ray reveals bilateral pneumonia. He had an elevated white count of 14 and also had an elevated BNP. sputum cultures positive for Pseudomonas, ID treated with cefepime and Vanco. His hospital course became complicated with acute PE, DVT, paroxysmal atrial fib - placed on chronic anticoagulation. Patient was difficult to wean off, status post trach and PEG, remains on mechanical ventilation with trach tube. He then developed partial small bowel obstruction valuated by general surgeon symptom improved with medical Mx, patient was briefly weaned off ventilatory support however, was in respiratory failure requiring full ventilatory support. Cardiac catheterization on 01/22/2020. No new issues overnight. --Hypertensive emergency; present on admission Reasonable blood pressures, continue current antihypertensives As needed medications --History of alcohol abuse/alcohol withdrawal; Was on CIWA protocol, now stable --Oropharyngeal dysphagia; status post PEG placement Continue PEG feeds per protocol --History of partial small bowel obstruction; resolved Surgery evaluated. --Obesity; BMI 34.7 Patient needs weight reduction when medically stable --Severe protein calorie malnutrition/hypoalbuminemia Nutrition supplements, dietitian following, PEG feeds --DVT prophylaxis;Eliquis --Full CODE STATUS 01/05; Pt stable. NGT output 650cc over 24 hours, bilious. No f/c, WBC within normal limits. cont NG suction and cont to hold TF 01/06: Abs series - mild improvement in small bowel distension in mid abdomen, normal gas/stool pattern in colon. NGT in duodenum. Continue to hold tube feeding, maintain NG tube with low intermittent suction. Patient's was updated by phone. Continue to provide supportive care and monitor clinically. 01/07: +BMs today and NGT/PEG output appears more gastric today. Plan to clamp NGT, if tolerates start TF from tomorrow. cont supportive care. 01/08; Gastric output decreased over last 24 hours. NGT has been clamped x 24 hours. plan to dc NGT and to start TTF via PEG - vital HF @10cc/hr 01/09: clinically stable, tolerating TF. monitor BMP, wean off from vent as tolerated clinically stable, on TF. wean off vent as tolerated 01/11: wean off from vent, cont to monitor, on TF 01/12: wean off from vent, cont to monitor, on TF. need placement - unfunded 01/13; remains on ventilatory support, unable to wean, DC planning possible LT AC, unfunded 01/14; patient of ventilatory support, T-piece tracheostomy on oxygen, LTAC placement per case management 01/16; tracheostomy, patient on full ventilatory support, wean off vent support as tolerated, pending LTAC placement, social financial issues 01/17; awaiting LTAC placement, insurance and financial issues 01/18; patient tracheostomy remains on ventilatory support 01/19; wean off ventilator as tolerated 01/20; remains on ventilatory support, patient complains of intermittent chest pain, cardiology recommend left heart catheterization tomorrow 01/22/2020. Patient for left heart catheterization per cardiology. Patient remains on AC mode ventilation rate 12, tidal volume 450, FiO2 30% and PEEP of 6. Continue tracheostomy care, airway management and secretion control. 01/23/2020. Cardiac catheterization completed yesterday revealed widely patent previous LAD stent with mild nonobstructive atherosclerosis of the right mid coronary artery and rest of the coronary system was without significant atherosclerosis. The left ventricle ejection fraction was mildly impaired at 40 to 45%. There was some hypokinesis of the basal inferior wall suggestive of previous or recent infarct. Continue GDMT for coronary artery disease including beta blockers, topical nitrates, statin and Plavix. Continue Eliquis for paroxysmal atrial fibrillation and PE. Continue diuresis with Lasix and follow electrolytes closely. Continue Robinul and scopolamine for secretion control and daily SBT per pulmonary. Also, continue bronchodilators and routine trach care/airway management. T-piece trials per pulmonary as tolerated. 01/24/2020. Recent cardiac catheterization has documented widely patent left anterior descending artery stent with minimal nonobstructive diffuse coronary artery disease in the rest of the coronary arteries. Evidence of ischemic cardiomyopathy with inferior wall hypokinesis. Continue with guideline directed medical therapy. Continue Robinul and scopolamine for secretion control and daily SBT per pulmonary. Continue bronchodilators and routine trach care/airway management. T-piece trials per pulmonary as tolerated. 01/25/2020. Continue with guideline directed medical therapy for systolic heart failure. Cardiac catheterization revealed evidence of ischemic cardiomyopathy with inferior wall hypokinesis (EF 40-45%). Patient currently on T-piece with oxygen 10 L/min FiO2 40%. Continue Robinul and scopolamine for secretion control. Continue bronchodilators and routine trach care/airway management. 01/26/2020;Continue with guideline directed medical therapy for systolic heart failure. Cardiac catheterization revealed evidence of ischemic cardiomyopathy with inferior wall hypokinesis (EF 40-45%). Patient currently on T-piece with oxygen 10 L/min FiO2 40%. Continue Robinul and scopolamine for secretion control. Continue bronchodilators and routine trach care/airway management. 01/27/2020Continue with guideline directed medical therapy for systolic heart failure. Cardiac catheterization revealed evidence of ischemic cardiomyopathy with inferior wall hypokinesis (EF 40-45%). Patient currently on T-piece with oxygen 10 L/min FiO2 40%. Continue Robinul and scopolamine for secretion control. Continue bronchodilators and routine trach care/airway management. The high probability of a clinically significant, sudden or life threatening deterioration of the [Respiratory, cardiovascular & neurological] system(s) required my full and direct attention, intervention and personal management. The aggregate critical care time was [32] minutes without overlap. Time includes spent on [x] Data Review and interpretation [x] Patient assessment and monitoring of vital signs [x] Documentation [x] Medication orders and management History Interval history: Patient was seen and evaluated this morning Patient is intubated and he open his eyes Patient is on trach Hospitalist Physical - Physical exam Narrative exam: Patient is on trach Patient is obese Vital signs as documented. Head exam is unremarkable. No scleral icterus . Neck is without jugular venous distension, thyromegaly, or carotid bruits. Lungs intubated and on mechanical ventilator Cardiac exam reveals regular rate and Rhythm. Abdominal exam reveals normal bowel sounds, nontender, no organomegaly. Extremities are nonedematous and both femoral and pedal pulses are normal. HIGH TENSION TESTER: Open his eyes on command. - Constitutional Vitals: Temp Pulse Resp BP Pulse Ox 97.6 F 96 H 25 H 119/86 95 01/27/20 04:04 01/27/20 09:00 01/27/20 09:00 01/27/20 09:00 01/27/20 09:00 General appearance: Present: well-nourished, obese, other (Tracheostomy on vent) HEART Score - HEART Score Troponin: Troponin T < 0.010 ng/mL (0.00-0.029) 01/19/20 01:35 Results - Labs CBC & Chem 7: 01/26/20 03:20 01/27/20 04:47 Labs: Laboratory Last Values WBC 8.9 K/mm3 (4.5-11.0) 01/25/20 04:25 RBC 3.50 M/mm3 (3.65-5.03) L 01/25/20 04:25 Hgb 9.2 gm/dl (11.8-15.2) L 01/26/20 03:20 Hct 29.4 % (35.5-45.6) L 01/26/20 03:20 MCV 80 fl (84-94) L 01/25/20 04:25 MCH 25 pg (28-32) L 01/25/20 04:25 MCHC 31 % (32-34) L 01/25/20 04:25 RDW 18.2 % (13.2-15.2) H 01/25/20 04:25 Plt Count 284 K/mm3 (140-440) 01/26/20 03:20 Lymph % (Auto) 24.4 % (13.4-35.0) 01/25/20 04:25 Parke % (Auto) 8.5 % (0.0-7.3) H 01/25/20 04:25 Eos % (Auto) 3.6 % (0.0-4.3) 01/25/20 04:25 Baso % (Auto) 0.7 % (0.0-1.8) 01/25/20 04:25 Lymph # (Auto) 2.2 K/mm3 (1.2-5.4) 01/25/20 04:25 Parke # (Auto) 0.8 K/mm3 (0.0-0.8) 01/25/20 04:25 Eos # (Auto) 0.3 K/mm3 (0.0-0.4) 01/25/20 04:25 Baso # (Auto) 0.1 K/mm3 (0.0-0.1) 01/25/20 04:25 Add Manual Diff Complete 12/19/19 11:32 Total Counted 100 12/19/19 11:32 Seg Neutrophils % 62.8 % (40.0-70.0) 01/25/20 04:25 Seg Neuts % (Manual) 82.0 % (40.0-70.0) H 12/19/19 11:32 Band Neutrophils % 0 % 12/19/19 11:32 Lymphocytes % (Manual) 10.0 % (13.4-35.0) L 12/19/19 11:32 Reactive Lymphs % (Man) 0 % 12/19/19 11:32 Monocytes % (Manual) 6.0 % (0.0-7.3) 12/19/19 11:32 Eosinophils % (Manual) 2.0 % (0.0-4.3) 12/19/19 11:32 Basophils % (Manual) 0 % (0.0-1.8) 12/19/19 11:32 Metamyelocytes % 0 % 12/19/19 11:32 Myelocytes % 0 % 12/19/19 11:32 Promyelocytes % 0 % 12/19/19 11:32 Blast Cells % 0 % 12/19/19 11:32 Nucleated RBC % 1.0 % (0.0-0.9) H 12/19/19 11:32 Seg Neutrophils # 5.6 K/mm3 (1.8-7.7) 01/25/20 04:25 Seg Neutrophils # Man 12.0 K/mm3 (1.8-7.7) H 12/19/19 11:32 Band Neutrophils # 0.0 K/mm3 12/19/19 11:32 Lymphocytes # (Manual) 1.5 K/mm3 (1.2-5.4) 12/19/19 11:32 Abs React Lymphs (Man) 0.0 K/mm3 12/19/19 11:32 Monocytes # (Manual) 0.9 K/mm3 (0.0-0.8) H 12/19/19 11:32 Eosinophils # (Manual) 0.3 K/mm3 (0.0-0.4) 12/19/19 11:32 Basophils # (Manual) 0.0 K/mm3 (0.0-0.1) 12/19/19 11:32 Metamyelocytes # 0.0 K/mm3 12/19/19 11:32 Myelocytes # 0.0 K/mm3 12/19/19 11:32 Promyelocytes # 0.0 K/mm3 12/19/19 11:32 Blast Cells # 0.0 K/mm3 12/19/19 11:32 WBC Morphology Not Reportable 12/19/19 11:32 Hypersegmented Neuts Not Reportable 12/19/19 11:32 Hyposegmented Neuts Not Reportable 12/19/19 11:32 Hypogranular Neuts Not Reportable 12/19/19 11:32 Smudge Cells Not Reportable 12/19/19 11:32 Toxic Granulation Not Reportable 12/19/19 11:32 Toxic Vacuolation Not Reportable 12/19/19 11:32 Dohle Bodies Not Reportable 12/19/19 11:32 Pelger-Huet Anomaly Not Reportable 12/19/19 11:32 Hector Rods Not Reportable 12/19/19 11:32 Platelet Estimate Consistent w auto 12/19/19 11:32 Clumped Platelets Not Reportable 12/19/19 11:32 Plt Clumps, EDTA Not Reportable 12/19/19 11:32 Large Platelets Not Reportable 12/19/19 11:32 Giant Platelets Not Reportable 12/19/19 11:32 Platelet Satelliting Not Reportable 12/19/19 11:32 Plt Morphology Comment Not Reportable 12/19/19 11:32 RBC Morphology Not Reportable 12/19/19 11:32 Dimorphic RBCs Not Reportable 12/19/19 11:32 Polychromasia Not Reportable 12/19/19 11:32 Hypochromasia Few 12/19/19 11:32 Poikilocytosis Not Reportable 12/19/19 11:32 Anisocytosis 1+ 12/19/19 11:32 Microcytosis Few 12/19/19 11:32 Macrocytosis Few 12/19/19 11:32 Spherocytes Not Reportable 12/19/19 11:32 Pappenheimer Bodies Not Reportable 12/19/19 11:32 Sickle Cells Not Reportable 12/19/19 11:32 Target Cells Not Reportable 12/19/19 11:32 Tear Drop Cells Not Reportable 12/19/19 11:32 Ovalocytes Not Reportable 12/19/19 11:32 Helmet Cells Not Reportable 12/19/19 11:32 Gottlieb-Wymore Bodies Not Reportable 12/19/19 11:32 Hertel Rings Not Reportable 12/19/19 11:32 Oc Cells Not Reportable 12/19/19 11:32 Bite Cells Not Reportable 12/19/19 11:32 Crenated Cell Not Reportable 12/19/19 11:32 Elliptocytes Not Reportable 12/19/19 11:32 Acanthocytes (Spur) Not Reportable 12/19/19 11:32 Rouleaux Not Reportable 12/19/19 11:32 Hemoglobin C Crystals Not Reportable 12/19/19 11:32 Schistocytes Not Reportable 12/19/19 11:32 Malaria parasites Not Reportable 12/19/19 11:32 Clifford Bodies Not Reportable 12/19/19 11:32 Hem Pathologist Commnt No 12/19/19 11:32 PT 16.9 Sec. (12.2-14.9) H 01/22/20 09:58 INR 1.34 (0.87-1.13) H 01/22/20 09:58 APTT 31.5 Sec. (24.2-36.6) 01/22/20 09:58 Heparin Anti-Xa Level 1.34 U.I./ml (0.3-0.7) H 01/22/20 04:45 ABG pH 7.447 pH Units (7.350-7.450) 01/25/20 21:02 POC ABG pCO2 45.6 mmHg (32.0-48.0) 01/12/20 13:58 ABG pCO2 47.0 mm Hg 01/25/20 21:02 POC ABG pO2 76.6 mmHg (83-108) L 01/12/20 13:58 ABG pO2 57.5 mm Hg (80.0-90.0) L 01/25/20 21:02 POC ABG HCO3 31.2 01/12/20 13:58 ABG HCO3 31.7 mmol/L (20.0-26.0) H 01/25/20 21:02 ABG O2 Saturation 90.3 % (95.0-99.0) L 01/25/20 21:02 ABG O2 Content 16.0 (0.0-44) 01/25/20 21:02 POC ABG Base Excess 6.5 01/12/20 13:58 ABG Base Excess 6.6 mmol/L (-2.0-3.0) H 01/25/20 21:02 ABG Hemoglobin 13.0 gm/dl (14.0-18.0) L 01/25/20 21:02 ABG Oxyhemoglobin 84 (94-98) L 12/22/19 03:22 ABG Carboxyhemoglobin 2.5 % (0.0-5.0) 01/25/20 21:02 ABG Methemoglobin 0.6 % (0.0-1.5) 01/25/20 21:02 ABG Sodium 136.8 mmol/L (136.0-145.0) 01/12/20 13:58 ABG Potassium 3.7 mmol/L (3.40-4.50) 01/12/20 13:58 ABG Chloride 103.0 mmol/L (98-107) 01/12/20 13:58 ABG Glucose 99 mg/dL (65-95) H 01/12/20 13:58 Oxyhemoglobin 87.5 % (95.0-99.0) L 01/25/20 21:02 Carboxyhemoglobin 0.7 (0.5-1.5) 12/22/19 03:22 FiO2 40 % 01/25/20 21:02 Sodium 143 mmol/L (137-145) 01/27/20 04:47 Potassium 3.9 mmol/L (3.6-5.0) 01/27/20 04:47 Chloride 100.0 mmol/L (98-107) 01/27/20 04:47 Carbon Dioxide 29 mmol/L (22-30) 01/27/20 04:47 Anion Gap 18 mmol/L 01/27/20 04:47 BUN 30 mg/dL (9-20) H 01/27/20 04:47 Creatinine 0.7 mg/dL (0.8-1.3) L 01/27/20 04:47 Estimated GFR > 60 ml/min 01/27/20 04:47 BUN/Creatinine Ratio 43 % 01/27/20 04:47 Glucose 135 mg/dL (75-100) H 01/27/20 04:47 POC Glucose 143 mg/dL (70-105) H 01/27/20 05:43 Lactic Acid 2.50 mmol/L (0.7-2.0) H* 11/24/19 10:37 Magnesium 2.60 mg/dL (1.7-2.3) H 12/07/19 12:41 Calcium 9.2 mg/dL (8.4-10.2) 01/27/20 04:47 Ferritin 84.4 ng/mL (30.0-300.0) 11/24/19 04:53 Direct Bilirubin < 0.2 mg/dL (0-0.2) 12/08/19 03:55 Indirect Bilirubin 0.2 mg/dL 12/08/19 03:55 Phosphorus 3.40 mg/dL (2.5-4.5) 01/12/20 12:01 Total Bilirubin 0.50 mg/dL (0.1-1.2) 01/12/20 00:23 Total Creatine Kinase 141 units/L (55-170) 11/24/19 02:53 CK-MB (CK-2) 4.3 ng/mL (0.0-4.0) H 11/24/19 02:53 AST 16 units/L (5-40) 01/12/20 00:23 ALT 22 units/L (7-56) 01/12/20 00:23 CK-MB (CK-2) Rel Index 3.0 (0-4) 11/24/19 02:53 Alkaline Phosphatase 59 units/L (35-129) 01/12/20 00:23 C-Reactive Protein 8.50 mg/dL (0.00-1.30) H 12/01/19 12:16 Lactate Dehydrogenase 228 units/L (91-180) H 12/19/19 04:45 Troponin T < 0.010 ng/mL (0.00-0.029) 01/19/20 01:35 NT-Pro-B Natriuret Pep 3866 pg/mL (0-900) H 01/01/20 10:40 Total Protein 6.3 g/dL (6.3-8.2) 01/12/20 00:23 Albumin 2.6 g/dL (3.9-5) L 01/12/20 00:23 Albumin/Globulin Ratio 0.7 % 01/12/20 00:23 Procalcitonin 0.76 ng/mL (<0.15) 01/01/20 10:40 Arterial Blood Glucose 99 mg/dL (65-95) H 01/12/20 13:58 Arterial Blood Ionized Calcium 4.8 mg/dL (4.6-5.3) 01/12/20 13:58 Urine Color Cecy (Yellow) 12/31/19 18:04 Urine Turbidity Clear (Clear) 12/31/19 18:04 Urine pH 5.0 (5.0-7.0) 12/31/19 18:04 Ur Specific Prole 1.023 (1.003-1.030) 12/31/19 18:04 Urine Protein <15 mg/dl mg/dL (Negative) 12/31/19 18:04 Urine Glucose (UA) Neg mg/dL (Negative) 12/31/19 18:04 Urine Ketones Neg mg/dL (Negative) 12/31/19 18:04 Urine Blood Neg (Negative) 12/31/19 18:04 Urine Bacteria (Auto) 1+ /HPF (Negative) 12/03/19 06:03 Urine Nitrite Neg (Negative) 12/31/19 18:04 Urine Bilirubin Neg (Negative) 12/31/19 18:04 Urine Urobilinogen 4.0 mg/dL (<2.0) 12/31/19 18:04 Ur Leukocyte Esterase Neg (Negative) 12/31/19 18:04 Urine WBC (Auto) 2.0 /HPF (0.0-6.0) 12/31/19 18:04 Urine RBC (Auto) 3.0 /HPF (0.0-6.0) 12/31/19 18:04 U Epithel Cells (Auto) 2.0 /HPF (0-13.0) 12/31/19 18:04 Urine Mucus 1+ /HPF 12/31/19 18:04 Vancomycin Trough 14.2 ug/mL (5.0-20.0) 12/13/19 15:01 Coronavirus (PCR) Negative (Negative) 12/29/19 10:07 Blood Type O POSITIVE 01/21/20 13:00 Antibody Screen Negative 01/21/20 13:00 - Diagnostic Impressions Diagnostic Impressions: Echocardiogram 11/29/19 07:37 Transthoracic Echocardiogram Indication: CHF BP: 116/72 HR: 33 Conclusions *The study is technically limited due to poor acoustic windows. *Global left ventricular systolic function is normal. *The estimated ejection fraction is 50-55%. *Mild concentric left ventricular hypertrophy is observed. *There is trace of mitral regurgitation. *There is mild tricuspid regurgitation. Findings Procedure Info: The study quality is poor. The study is technically limited due to poor acoustic windows. The study is technically limited due to patient body habitus. Left Ventricle: The left ventricular chamber size is normal. Mild concentric left ventricular hypertrophy is observed. Global left ventricular systolic function is normal. The estimated ejection fraction is 50-55%. Left Atrium: The left atrial chamber size is normal. Right Ventricle: The right ventricular cavity size is normal. Right Atrium: The right atrial cavity size is normal. Aortic Valve: The aortic valve leaflets are moderately thickened. There is trace of aortic regurgitation. There is no evidence of aortic stenosis. Mitral Valve: The mitral valve leaflets are mildly thickened. There is trace of mitral regurgitation. There is no evidence of mitral stenosis. Tricuspid Valve: There is mild tricuspid regurgitation. No pulmonary hypertension is noted. Pulmonic Valve: There is trace pulmonic regurgitation. Pericardium: There is no pericardial effusion. Aorta: There is no dilatation of the aortic root. Venous: The inferior vena cava appears normal in size. Contrast: Definity was used to optimize study. Intravenous contrast was used to enhance endocardial border definition. Measurements Chambers 2D Name Value Normal Range Ao root diameter (2D) 3.4 cm (2 - 3.7) Aortic Valve Name Value Normal Range AV Vmax 0.98 m/sec - AV VTI 16.76 cm - AV peak gradient 3.83 mmHg - AV mean gradient 2.57 mmHg - LVOT diameter 3.11 cm - LVOT Vmax 0.68 m/sec - LVOT VTI 11.52 cm - LVOT peak gradient 1.84 mmHg - LVOT mean gradient 1.27 mmHg - SV LVOT 87.31 ml - MALOU (continuity Vmax) 5.24 cm2 - MALOU (continuity VTI) 5.21 cm2 - Tricuspid Valve Name Value Normal Range IVC diameter 2.24 cm (1.2 - 2.3) Hoffman/IV: Voiding Method Condom Catheter IV Catheter Type [Right INT / Saline Lock Forearm] IV Catheter Type [Right Hand] Peripheral IV IV Catheter Type [Right Upper INT / Saline Lock arm] IV Catheter Type [Left Upper Mid-line arm] IV Catheter Type [Left Forearm INT / Saline Lock ] IV Catheter Type [Left Hand] INT / Saline Lock IV Catheter Type [Left Wrist] INT / Saline Lock IV Catheter Type [Right Peripheral IV Antecubital] Active Medications - Current Medications Current Medications: Generic Name Dose Route Start Last Admin Trade Name Freq PRN Reason Stop Dose Admin Acetaminophen 650 mg 12/31/19 11:43 01/14/20 08:27 Tylenol FEEDTUBE 650 mg Q6H PRN Administration Pain, Mild (1-3) Amiodarone HCl 200 mg 01/21/20 06:00 01/26/20 10:08 Cordarone PO 200 mg QDAY CAR Administration Lipase/Protease/Amylase 1 each 01/09/20 12:01 Pancrepetr Betancourt 10,500 Unit FEEDTUBE PRN PRN For Clogged Feeding Tube Apixaban 5 mg 01/22/20 22:00 01/26/20 21:40 Eliquis PO 5 mg Q12HR CAR Administration Protocol Atorvastatin Calcium 40 mg 01/20/20 22:00 01/26/20 21:40 Lipitor PO 40 mg QHS CAR Administration Bisacodyl 10 mg 01/06/20 13:00 01/26/20 10:08 Dulcolax [place] 10 mg DAILY CAR Administration Clopidogrel Bisulfate 75 mg 01/21/20 06:00 01/26/20 10:09 Plavix PO 75 mg QDAY CAR Administration Docusate Sodium 100 mg 12/02/19 22:00 01/26/20 21:40 Colace FEEDTUBE 100 mg BID CAR Administration Famotidine 20 mg 01/12/20 10:00 01/26/20 21:40 Pepcid PO 20 mg BID CAR Administration Glycopyrrolate 2 mg 01/26/20 20:00 01/26/20 21:40 Glycopyrrolate PO 2 mg TID CAR Administration Haloperidol Lactate 5 mg 12/25/19 10:00 01/22/20 11:35 Haldol IV 5 mg Q6H PRN Administration Unrespon. to mult. doses BZD's Hydrophilic Ointment 1 applic 01/17/20 15:26 Vaseline Lip Therapy TP DIRECT PRN Dry Lips Lorazepam 2 mg 12/25/19 10:00 01/27/20 01:54 Ativan IV 2 mg Q6H PRN Administration AGITATION Magnesium Hydroxide 30 ml 01/14/20 13:35 01/22/20 11:32 Milk Of Magnesia PO 30 ml QDAY PRN Administration Constip unreliev by MOM/or NPO Metoprolol Tartrate 5 mg 01/11/20 08:00 01/22/20 02:10 Metoprolol IV 5 mg Q6H PRN Administration SEE INSTRUCTIONS Metoprolol Tartrate 25 mg 01/11/20 13:00 01/27/20 06:05 Metoprolol PO 25 mg Q6H CAR Administration Morphine Sulfate 2 mg 01/06/20 15:41 01/26/20 18:37 Morphine IV 2 mg Q4H PRN Administration Pain, Moderate (4-6) Nitroglycerin 0.4 mg 01/19/20 21:09 01/20/20 03:03 Nitrostat SL 0.4 mg .Q5MIN PRN Administration Chest Pain Nitroglycerin 0.4 mg 01/21/20 06:00 01/27/20 06:05 Nitro Dur TD 0.4 mg QDAY@0600 CAR Administration Ondansetron HCl 4 mg 01/05/20 14:37 01/24/20 10:53 Zofran IV 4 mg Q8H PRN Administration Nausea And Vomiting Polyethylene Glycol 17 gm 12/04/19 22:00 01/26/20 21:40 Miralax 3350 PO 17 gm QHS CAR Administration Quetiapine Fumarate 300 mg 01/13/20 22:00 01/26/20 21:39 Seroquel PO 300 mg BID CAR Administration Scopolamine 1 each 01/07/20 20:00 01/07/20 21:08 Transderm-Scop TD 1 each Q72HR CAR Administration Simple Syrup 15 ml 01/09/20 12:01 Simple Syrup FEEDTUBE PRN PRN Hypoglycemia Simple Syrup 30 ml 01/09/20 12:01 Simple Syrup FEEDTUBE PRN PRN Hypoglycemia Sodium Bicarbonate 325 mg 01/09/20 12:01 Sodium Bicarbonate FEEDTUBE PRN PRN For Clogged Feeding Tube Sodium Chloride 10 ml 11/24/19 10:00 01/26/20 21:41 Sodium Chloride Flush Syringe 10 Ml IV 10 ml BID CAR Administration Tamsulosin HCl 0.8 mg 12/20/19 22:00 01/26/20 21:40 Flomax PO 0.8 mg QHS CAR Administration Nutrition/Malnutrition Assess - Dietary Evaluation Nutrition/Malnutrition Findings: Nutrition Notes Start: 11/24/19 12:22 Freq: Status: Active Protocol: Document 01/26/20 12:32 HEATHER (Rec: 01/26/20 13:06 HEATHER [id number]) Co-Sign 01/26/20 12:32 MK Nutrition Notes Initial or Follow up Reassessment Current Diagnosis Coronary Artery Disease,Heart Failure,Respiratory Failure, Stroke,Hyperlipidemia Other Pertinent Diagnosis Partial SBO, pneu Current Diet Vital HP 70ml/hr Labs/Tests Reviewed Pertinent Medications Lasix Height 6 ft 2 in Weight 117 kg [place] Body Weight (kg) 86.36 BMI 33.1 Weight Status Overweight Subjective/Other Information F/u TF and wt. Changing TF due to wt loss and to support PT Percent of energy/protein needs met: 78%/65% Burn Absent Trauma Absent GI Symptoms None Current % PO Negligible Minimum of two criteria Yes Muscle Mass Mild Depletion (non-severe) Fluid Accumulation Mild (non-severe) Reduced [employer] Strength Measurably Reduced (severe) #2 Nutrition Diagnosis Malnutrition Diagnosis Progress(for reassessment Continues documentation) #1 Nutrition Diagnosis Inadequate oral intake Diagnosis Progress(for reassessment Continues documentation) Is patient on ventilator? Yes Is Patient Ambulatory and/or Out of Bed No REE-(Gilliam-St. Jeor-confined to bed) 2446.344 Kcal/Kg value to use for calculation 18 Approximate Energy Requirements Using 2106 kcal/Kg Calculation Used for Recommendations Kcal/kg Additional Notes Protein needs are up to 162g ( 2g/kg IBW) Fluid needs are 1.5L Nutrition Intervention Change Diet Order: Change TF Nutrition Support: Vital AF 1.2 at 75ml/hr. Flush 100ml q4h Kcal 2,160 Protein (gm) 135 Fluid (mL) 1,460 Goal #1 Meet at least 75% of pt's energy and protein needs Goal #2 Weight maintenance Anticipated Discharge Needs: unable to determine Follow-Up By: 01/29/20 Additional Comments F/u TF tolerance
[2020-01-27] MEDS: FAMOTIDINE 20 MG TAB PO SCH ×2 (09:36→21:31)
[2020-01-27] MEDS: GLYCOPYRROLATE 2 MG TAB PO SCH ×3 (09:37→23:34)
[2020-01-27] MEDS: CLOPIDOGREL 75 MG TAB PO SCH (09:37)
[2020-01-27] MEDS: AMIODARONE 200 MG TAB PO SCH (09:37)
[2020-01-27] MEDS: DOCUSATE SODIUM 100 MG/10 ML ORAL LIQD FEEDTUBE SCH ×2 (09:37→21:32)
[2020-01-27] MEDS: QUEtiapine 100 MG TAB PO SCH ×2 (09:37→21:32)
[2020-01-27] MEDS: APIXABAN 5 MG TAB PO SCH ×2 (09:37→21:32)
--- NOTE | 2020-01-27 12:12 | Progress Note ---
Assessment and Plan Chest pain, resolved LHC done 01/22/20 widely patent previous LAD stent. We found mild nonobstructive atherosclerosis of the mid right coronary artery. Otherwise the rest of the coronary system was without significant atherosclerosis. LVEF 40 to 45%. There was some hypokinesis of the basal inferior wall suggestive of previous or recent infarct. ECG done 01/19/20 shows sinus rhythm with low voltage QRS and subtle ST segment elevations in the inferolateral leads that suggested possible concern for an acute injury at that time. Atrial fibrillation, paroxysmal on amiodarone and metoprolol currently in sinus rhythm Ischemic Cardiomyopathy re-echo this presentation reports an LVEF 40-45%. echo 08/2018: decreased LVEF 20-25%. Hx of CAD LHC 12/2018: mild in-stent restenosis. No significant residual disease. Multifocal pneumonia negative COVID-19 test x 3 Chronic Respiratory failure s/p trach History of COPD Acute PE/DVT -on Eliquis Anemia Partial SBO vs ileus Recommend: Continue guideline directed medical therapy for coronary artery disease and paroxysmal atrial fibrillation. Otherwise, conservative cardiac management. Subjective Date of service: 01/27/20 Principal diagnosis: Ac hypoxemic resp failure; Pneumonia; PUI COVID-19; CHF; COPD; HTN Interval history: Patient is alert, resting in bed comfortably. No interval cardiac changes. Objective Vital Signs Temp Pulse Pulse Resp BP Pulse Ox Pulse Ox 01/27/20 11:17 95 01/27/20 09:00 96 H 25 H 119/86 95 01/27/20 08:00 97.5 F L 98 H 97 H 24 125/88 94 01/27/20 07:52 97 98 01/27/20 07:00 97 H 26 H 116/83 01/27/20 06:05 99 H 123/86 01/27/20 06:00 98 H 27 H 123/86 97 01/27/20 05:00 98 H 27 H 117/91 97 01/27/20 04:53 97 H 116/88 97 01/27/20 04:04 97.6 F 01/27/20 04:00 97.6 F 94 H 95 H 29 H 116/88 96 01/27/20 03:57 97 01/27/20 03:00 96 H 27 H 119/88 98 01/27/20 02:00 94 H 24 109/77 01/27/20 01:54 96 H 112/88 01/27/20 01:00 100 H 26 H 112/88 98 01/27/20 00:00 97.6 F 95 H 95 H 25 H 104/83 95 01/26/20 23:51 97 H 100/76 95 01/26/20 23:10 99 H 22 100/76 01/26/20 23:00 93 H 21 100/76 94 01/26/20 22:55 94 H 24 98/69 97 01/26/20 22:00 85 24 98/69 01/26/20 21:15 99 H 106/82 92 01/26/20 21:00 105 H 28 H 106/82 91 01/26/20 20:38 95 01/26/20 20:36 101 H 106/88 95 01/26/20 20:35 95 01/26/20 20:00 97.6 F 104 H 105 H 29 H 106/88 92 01/26/20 19:58 97.6 F 01/26/20 19:00 104 H 28 H 117/93 92 01/26/20 18:34 106 H 123/83 01/26/20 18:00 102 H 27 H 123/83 95 01/26/20 17:00 122 H 25 H 110/79 95 01/26/20 16:00 98.7 F 118 H 118 H 25 H 110/79 94 01/26/20 15:34 96 96 01/26/20 15:01 101 H 118/88 01/26/20 15:00 101 H 23 118/88 93 01/26/20 14:00 92 H 20 107/67 96 01/26/20 13:00 122 H 20 97/76 95 - Physical Examination General: Other (awake, s/p trach) HEENT: Positive: PERRL Cardiac: Positive: Reg Rate and Rhythm Neuro: Positive: Weakness Extremities: Absent: edema - Labs and Meds Comprehensive Metabolic Panel 01/27/20 Range/Units 04:47 Sodium 143 (137-145) mmol/L Potassium 3.9 (3.6-5.0) mmol/L Chloride 100.0 (98-107) mmol/L Carbon Dioxide 29 (22-30) mmol/L BUN 30 H (9-20) mg/dL Creatinine 0.7 L (0.8-1.3) mg/dL Glucose 135 H (75-100) mg/dL Calcium 9.2 (8.4-10.2) mg/dL - Allied health notes Allied health notes reviewed: nursing
--- NOTE | 2020-01-27 13:49 | Progress Note ---
Assessment and Plan Acute hypoxemic respiratory failure Bilateral pneumonia, community acquired. Acute LLL branch P.E. Acute DVT Person under investigation for COVID-19 infection. Acute congestive heart failure exacerbation. History of cerebrovascular accident. Acute chronic obstructive pulmonary disease exacerbation. Hypertension and hypertensive urgency at presentation. History of arthritis. Leukocytosis. Lactic acidosis. Oropharyngeal dysphagia - continue T-piece trials and advance RTC as tolerated - continue diuresis with lasix 40mg IV bid (follow electrolytes and correct as necessary) - repeat CXR prn at this point (ordered for tomorrow) - continue mucomyst nebs re: secretions - continue Robinul & Scopolamine for secretion control - continue full anticoagulation with Apixaban - continue care as below otherwise; - continue daily SAT's and SBT assessment as tolerated - continue seroquel for anxiolysis / delirium - COVID isolation per facility protocol - prn diuresis while following electrolytes / I's & O's - continue to wean oxygen for O2 sat's > 92% - continue bronchodilators with routine trach care and pulmonary hygiene per RT - VAP bundle addressed (Aspiration precautions, HOB >40) - continue to wean per pulmonary driven protocols - sedation target is RASS 0 to -1 - continue prn analgesia per CPOT score - follow clinically re: fever curves / trend WBC - Avoid delirium (no benzodiazepines if they can be avoided) - Maintain sleep-wake cycle - enteral nutrition at goal rate as tolerated - continue accucheck's with glycemic control per SSI for target blood glucose goal of 140-180 mg/dL while critically ill; Avoid hypoglycemia - for VTE he is on IV Heparin - continue stress ulcer prophylaxis with Famotidine - continue mobility protocols for pressure ulcer prophylaxis - continue fall precautions - continue wound care management per RN / WCT - Supportive transfusions to keep HgB>7g/dL - CXR's and ABG's prn - Continue to monitor neurologic function - Continue chronic home medications - Continue all supportive care ........ re-evaluate in am & prn CONDITION: CRITICAL PROGNOSIS: GUARDED CODE STATUS: FULL CODE The high probability of a clinically significant, sudden or life threatening deterioration of the [Respiratory, cardiovascular & neurological] system(s) required my full and direct attention, intervention and personal management. The aggregate critical care time was [34] minutes without overlap. Time includes spent on [x] Data Review and interpretation [x] Patient assessment and monitoring of vital signs [x] Documentation [x] Medication orders and management Subjective Date of service: 01/27/20 Principal diagnosis: Ac hypoxemic resp failure; Pneumonia; PUI COVID-19; CHF; COPD; HTN Interval history: Patient is seen today for: Acute hypoxemic respiratory failure; [place]. Pneumonia (CAP); PUI COVID-19 infection; AE-CHF; AE-COPD; H/O CVA; HTN Seen and examined at bedside; 24 hour events reviewed; nursing and respiratory care staff consulted; no adverse overnight events reported to me; resting peacefully in bed; again tired out overnight andc back on t-piece; still with ioncreased work of breathing; secretions a little better; No N/V/F/C Objective Vital Signs - 12hr 01/27/20 01/27/20 01/27/20 01:54 02:00 03:00 Temperature Pulse Rate 96 H 94 H 96 H Pulse Rate [ From Monitor] Respiratory 24 27 H Rate Blood Pressure 112/88 109/77 119/88 O2 Sat by Pulse 98 Oximetry O2 Sat by Pulse Oximetry [ Assessment] 01/27/20 01/27/20 01/27/20 03:57 04:00 04:04 Temperature 97.6 F 97.6 F Pulse Rate 94 H Pulse Rate [ 95 H From Monitor] Respiratory 29 H Rate Blood Pressure 116/88 O2 Sat by Pulse 96 Oximetry O2 Sat by Pulse 97 Oximetry [ Assessment] 01/27/20 01/27/20 01/27/20 04:53 05:00 06:00 Temperature Pulse Rate 97 H 98 H 98 H Pulse Rate [ From Monitor] Respiratory 27 H 27 H Rate Blood Pressure 116/88 117/91 123/86 O2 Sat by Pulse 97 97 97 Oximetry O2 Sat by Pulse Oximetry [ Assessment] 01/27/20 01/27/20 01/27/20 06:05 07:00 07:52 Temperature Pulse Rate 99 H 97 H Pulse Rate [ From Monitor] Respiratory 26 H Rate Blood Pressure 123/86 116/83 O2 Sat by Pulse 97 Oximetry O2 Sat by Pulse 98 Oximetry [ Assessment] 01/27/20 01/27/20 01/27/20 08:00 09:00 10:00 Temperature 97.5 F L Pulse Rate 98 H 96 H 98 H Pulse Rate [ 97 H From Monitor] Respiratory 24 25 H 21 Rate Blood Pressure 125/88 119/86 119/86 O2 Sat by Pulse 94 95 100 Oximetry O2 Sat by Pulse Oximetry [ Assessment] 01/27/20 01/27/20 01/27/20 11:00 11:17 12:00 Temperature 97.8 F Pulse Rate 97 H 102 H Pulse Rate [ 104 H From Monitor] Respiratory 20 24 Rate Blood Pressure 104/70 112/68 O2 Sat by Pulse 98 95 98 Oximetry O2 Sat by Pulse Oximetry [ Assessment] Constitutional: appears uncomfortable, other (elelelderly and obese male, normocephalic with mildly increased respiratory effort at rest) Eyes: non-icteric ENT: oropharynx moist, other (+ midline tracheostomy) Neck: supple, no JVD Effort: mildly labored Ascultation: Bilateral: diminished breath sounds, rhonchi (and referred upper airway sounds) Percussion: Bilateral: not dull Cardiovascular: irregular rhythm, other (S1,S2) Gastrointestinal: normoactive bowel sounds, soft, non-tender, non-distended (protuberant), other (protuberant; PEG in place) Integumentary: normal Extremities: no cyanosis, pulses normal, no ischemia or petechiae, edema (bilateral upper ) Neurologic: non-focal exam (moves extremities), pupils equal and round, CN II- XII normal, motor strength normal and (moves all extremities) Psychiatric: mood appropriate, affect normal CBC and BMP: 01/28/20 04:37 01/27/20 04:47 ABG, PT/INR, D-dimer: ABG ABG pH 7.447 pH Units (7.350-7.450) 01/25/20 21:02 POC ABG pCO2 45.6 mmHg (32.0-48.0) 01/12/20 13:58 ABG pCO2 47.0 mm Hg 01/25/20 21:02 POC ABG pO2 76.6 mmHg (83-108) L 01/12/20 13:58 ABG pO2 57.5 mm Hg (80.0-90.0) L 01/25/20 21:02 POC ABG HCO3 31.2 01/12/20 13:58 ABG O2 Saturation 90.3 % (95.0-99.0) L 01/25/20 21:02 PT/INR, D-dimer PT 16.9 Sec. (12.2-14.9) H 01/22/20 09:58 INR 1.34 (0.87-1.13) H 01/22/20 09:58 Abnormal lab findings: Abnormal Labs 11/24/19 11/24/19 11/24/19 02:53 02:53 03:45 WBC 14.3 H RBC Hgb Hct MCHC RDW 17.2 H MCV MCH Lymph % (Auto) [place] % (Auto) [place] # Eos # Lymph # (Auto) [place] # (Auto) Eos # (Auto) Seg Neutrophils % Seg Neuts % (Manual) Baso # (Auto) Lymphocytes % (Manual) Monocytes % (Manual) Eosinophils % (Manual) Basophils % (Manual) Seg Neutrophils # Seg Neutrophils # Man 8.3 H Lymphocytes # (Manual) Monocytes # (Manual) 0.9 H Eosinophils # (Manual) Nucleated RBC % Basophils # (Manual) PT INR APTT Heparin Anti-Xa Level ABG pH 7.313 L POC ABG pO2 ABG pO2 102.8 H ABG HCO3 ABG O2 Saturation ABG Base Excess -2.9 L POC ABG pCO2 ABG Hemoglobin ABG Oxyhemoglobin ABG Glucose Oxyhemoglobin 93.9 L Sodium Potassium Chloride Carbon Dioxide BUN Creatinine Glucose 195 H POC Glucose Lactic Acid Calcium Phosphorus Magnesium AST ALT Lactate Dehydrogenase CK-MB (CK-2) 4.3 H C-Reactive Protein NT-Pro-B Natriuret Pep 1181 H Total Protein Albumin Arterial Blood Glucose Urine WBC (Auto) 11/24/19 11/24/19 11/24/19 04:53 04:53 10:37 WBC RBC Hgb Hct MCHC RDW MCV MCH Lymph % (Auto) [place] % (Auto) [place] # Eos # Lymph # (Auto) [place] # (Auto) Eos # (Auto) Seg Neutrophils % Seg Neuts % (Manual) Baso # (Auto) Lymphocytes % (Manual) Monocytes % (Manual) Eosinophils % (Manual) Basophils % (Manual) Seg Neutrophils # Seg Neutrophils # Man Lymphocytes # (Manual) Monocytes # (Manual) Eosinophils # (Manual) Nucleated RBC % Basophils # (Manual) PT INR APTT Heparin Anti-Xa Level ABG pH POC ABG pO2 ABG pO2 ABG HCO3 ABG O2 Saturation ABG Base Excess POC ABG pCO2 ABG Hemoglobin ABG Oxyhemoglobin ABG Glucose Oxyhemoglobin Sodium Potassium Chloride Carbon Dioxide BUN Creatinine Glucose 162 H POC Glucose Lactic Acid 2.40 H* 2.50 H* Calcium Phosphorus Magnesium AST ALT Lactate Dehydrogenase 240 H CK-MB (CK-2) C-Reactive Protein NT-Pro-B Natriuret Pep Total Protein Albumin Arterial Blood Glucose Urine WBC (Auto) 11/24/19 11/24/19 11/24/19 12:21 14:50 19:54 WBC RBC Hgb Hct MCHC RDW MCV MCH Lymph % (Auto) [place] % (Auto) [place] # Eos # Lymph # (Auto) [place] # (Auto) Eos # (Auto) Seg Neutrophils % Seg Neuts % (Manual) Baso # (Auto) Lymphocytes % (Manual) Monocytes % (Manual) Eosinophils % (Manual) Basophils % (Manual) Seg Neutrophils # Seg Neutrophils # Man Lymphocytes # (Manual) Monocytes # (Manual) Eosinophils # (Manual) Nucleated RBC % Basophils # (Manual) PT INR APTT Heparin Anti-Xa Level ABG pH POC ABG pO2 ABG pO2 ABG HCO3 ABG O2 Saturation ABG Base Excess POC ABG pCO2 ABG Hemoglobin ABG Oxyhemoglobin ABG Glucose Oxyhemoglobin Sodium Potassium Chloride Carbon Dioxide BUN Creatinine Glucose POC Glucose 145 H 143 H 124 H Lactic Acid Calcium Phosphorus Magnesium AST ALT Lactate Dehydrogenase CK-MB (CK-2) C-Reactive Protein NT-Pro-B Natriuret Pep Total Protein Albumin Arterial Blood Glucose Urine WBC (Auto) 11/25/19 11/25/19 11/25/19 00:18 03:18 05:11 WBC 13.7 H RBC Hgb Hct MCHC RDW 17.1 H MCV MCH Lymph % (Auto) 10.8 L [place] % (Auto) 8.7 H [place] # 1.2 H Eos # Lymph # (Auto) [place] # (Auto) Eos # (Auto) Seg Neutrophils % 80.2 H Seg Neuts % (Manual) Baso # (Auto) Lymphocytes % (Manual) Monocytes % (Manual) Eosinophils % (Manual) Basophils % (Manual) Seg Neutrophils # 11.0 H Seg Neutrophils # Man Lymphocytes # (Manual) Monocytes # (Manual) Eosinophils # (Manual) Nucleated RBC % Basophils # (Manual) PT INR APTT Heparin Anti-Xa Level ABG pH 7.333 L POC ABG pO2 ABG pO2 61.2 L ABG HCO3 ABG O2 Saturation 90.2 L ABG Base Excess POC ABG pCO2 ABG Hemoglobin 13.7 L ABG Oxyhemoglobin ABG Glucose Oxyhemoglobin 88.2 L Sodium Potassium Chloride Carbon Dioxide BUN Creatinine Glucose POC Glucose 109 H Lactic Acid Calcium Phosphorus Magnesium AST ALT Lactate Dehydrogenase CK-MB (CK-2) C-Reactive Protein NT-Pro-B Natriuret Pep Total Protein Albumin Arterial Blood Glucose Urine WBC (Auto) 11/25/19 11/25/19 11/26/19 05:11 11:40 03:12 WBC RBC Hgb Hct MCHC RDW MCV MCH Lymph % (Auto) [place] % (Auto) [place] # Eos # Lymph # (Auto) [place] # (Auto) Eos # (Auto) Seg Neutrophils % Seg Neuts % (Manual) Baso # (Auto) Lymphocytes % (Manual) Monocytes % (Manual) Eosinophils % (Manual) Basophils % (Manual) Seg Neutrophils # Seg Neutrophils # Man Lymphocytes # (Manual) Monocytes # (Manual) Eosinophils # (Manual) Nucleated RBC % Basophils # (Manual) PT INR APTT Heparin Anti-Xa Level ABG pH POC ABG pO2 ABG pO2 155.1 H ABG HCO3 27.8 H ABG O2 Saturation ABG Base Excess POC ABG pCO2 ABG Hemoglobin 12.2 L ABG Oxyhemoglobin ABG Glucose Oxyhemoglobin Sodium Potassium Chloride Carbon Dioxide BUN 23 H Creatinine Glucose 110 H POC Glucose 108 H Lactic Acid Calcium Phosphorus Magnesium AST ALT Lactate Dehydrogenase CK-MB (CK-2) C-Reactive Protein NT-Pro-B Natriuret Pep Total Protein Albumin Arterial Blood Glucose Urine WBC (Auto) 11/26/19 11/26/19 11/26/19 06:17 10:43 10:43 WBC 11.4 H RBC Hgb Hct MCHC RDW 17.1 H MCV MCH Lymph % (Auto) [place] % (Auto) [place] # Eos # Lymph # (Auto) [place] # (Auto) Eos # (Auto) Seg Neutrophils % Seg Neuts % (Manual) Baso # (Auto) Lymphocytes % (Manual) Monocytes % (Manual) Eosinophils % (Manual) Basophils % (Manual) Seg Neutrophils # Seg Neutrophils # Man Lymphocytes # (Manual) Monocytes # (Manual) Eosinophils # (Manual) Nucleated RBC % Basophils # (Manual) PT INR APTT Heparin Anti-Xa Level ABG pH POC ABG pO2 ABG pO2 ABG HCO3 ABG O2 Saturation ABG Base Excess POC ABG pCO2 ABG Hemoglobin ABG Oxyhemoglobin ABG Glucose Oxyhemoglobin Sodium Potassium Chloride Carbon Dioxide BUN 29 H Creatinine Glucose POC Glucose 107 H Lactic Acid Calcium Phosphorus Magnesium AST ALT Lactate Dehydrogenase CK-MB (CK-2) C-Reactive Protein NT-Pro-B Natriuret Pep Total Protein Albumin Arterial Blood Glucose Urine WBC (Auto) 11/26/19 11/27/19 11/27/19 17:11 01:53 04:11 WBC RBC Hgb Hct MCHC RDW MCV MCH Lymph % (Auto) [place] % (Auto) [place] # Eos # Lymph # (Auto) [place] # (Auto) Eos # (Auto) Seg Neutrophils % Seg Neuts % (Manual) Baso # (Auto) Lymphocytes % (Manual) Monocytes % (Manual) Eosinophils % (Manual) Basophils % (Manual) Seg Neutrophils # Seg Neutrophils # Man Lymphocytes # (Manual) Monocytes # (Manual) Eosinophils # (Manual) Nucleated RBC % Basophils # (Manual) PT INR APTT Heparin Anti-Xa Level ABG pH POC ABG pO2 ABG pO2 ABG HCO3 29.2 H ABG O2 Saturation ABG Base Excess 3.4 H POC ABG pCO2 ABG Hemoglobin 13.3 L ABG Oxyhemoglobin ABG Glucose Oxyhemoglobin 94.5 L Sodium Potassium Chloride Carbon Dioxide BUN Creatinine Glucose POC Glucose 113 H 108 H Lactic Acid Calcium Phosphorus Magnesium AST ALT Lactate Dehydrogenase CK-MB (CK-2) C-Reactive Protein NT-Pro-B Natriuret Pep Total Protein Albumin Arterial Blood Glucose Urine WBC (Auto) 11/27/19 11/28/19 11/28/19 05:27 05:00 05:25 WBC RBC Hgb Hct MCHC RDW MCV MCH Lymph % (Auto) [place] % (Auto) [place] # Eos # Lymph # (Auto) [place] # (Auto) Eos # (Auto) Seg Neutrophils % Seg Neuts % (Manual) Baso # (Auto) Lymphocytes % (Manual) Monocytes % (Manual) Eosinophils % (Manual) Basophils % (Manual) Seg Neutrophils # Seg Neutrophils # Man Lymphocytes # (Manual) Monocytes # (Manual) Eosinophils # (Manual) Nucleated RBC % Basophils # (Manual) PT INR APTT Heparin Anti-Xa Level ABG pH POC ABG pO2 68.1 L ABG pO2 ABG HCO3 ABG O2 Saturation ABG Base Excess POC ABG pCO2 ABG Hemoglobin ABG Oxyhemoglobin 91.2 L ABG Glucose Oxyhemoglobin Sodium Potassium Chloride Carbon Dioxide BUN Creatinine Glucose POC Glucose 111 H 110 H Lactic Acid Calcium Phosphorus Magnesium AST ALT Lactate Dehydrogenase CK-MB (CK-2) C-Reactive Protein NT-Pro-B Natriuret Pep Total Protein Albumin Arterial Blood Glucose Urine WBC (Auto) 11/28/19 11/28/19 11/28/19 12:08 13:47 13:47 WBC 11.3 H RBC Hgb Hct MCHC RDW 16.1 H MCV MCH Lymph % (Auto) [place] % (Auto) 9.9 H [place] # 1.1 H Eos # Lymph # (Auto) [place] # (Auto) Eos # (Auto) Seg Neutrophils % 71.4 H Seg Neuts % (Manual) Baso # (Auto) Lymphocytes % (Manual) Monocytes % (Manual) Eosinophils % (Manual) Basophils % (Manual) Seg Neutrophils # 8.1 H Seg Neutrophils # Man Lymphocytes # (Manual) Monocytes # (Manual) Eosinophils # (Manual) Nucleated RBC % Basophils # (Manual) PT INR APTT Heparin Anti-Xa Level ABG pH POC ABG pO2 ABG pO2 ABG HCO3 ABG O2 Saturation ABG Base Excess POC ABG pCO2 ABG Hemoglobin ABG Oxyhemoglobin ABG Glucose Oxyhemoglobin Sodium Potassium Chloride Carbon Dioxide BUN 23 H Creatinine Glucose 123 H POC Glucose 112 H Lactic Acid Calcium Phosphorus Magnesium AST ALT Lactate Dehydrogenase CK-MB (CK-2) C-Reactive Protein NT-Pro-B Natriuret Pep Total Protein Albumin 3.7 L Arterial Blood Glucose Urine WBC (Auto) 11/28/19 11/29/19 11/29/19 17:26 03:55 17:04 WBC RBC Hgb Hct MCHC RDW MCV MCH Lymph % (Auto) [place] % (Auto) [place] # Eos # Lymph # (Auto) [place] # (Auto) Eos # (Auto) Seg Neutrophils % Seg Neuts % (Manual) Baso # (Auto) Lymphocytes % (Manual) Monocytes % (Manual) Eosinophils % (Manual) Basophils % (Manual) Seg Neutrophils # Seg Neutrophils # Man Lymphocytes # (Manual) Monocytes # (Manual) Eosinophils # (Manual) Nucleated RBC % Basophils # (Manual) PT INR APTT Heparin Anti-Xa Level ABG pH POC ABG pO2 ABG pO2 65.7 L ABG HCO3 28.3 H ABG O2 Saturation 93.9 L ABG Base Excess 3.6 H POC ABG pCO2 ABG Hemoglobin 13.3 L ABG Oxyhemoglobin ABG Glucose Oxyhemoglobin 91.5 L Sodium Potassium Chloride Carbon Dioxide BUN Creatinine Glucose POC Glucose 123 H 119 H Lactic Acid Calcium Phosphorus Magnesium AST ALT Lactate Dehydrogenase CK-MB (CK-2) C-Reactive Protein NT-Pro-B Natriuret Pep Total Protein Albumin Arterial Blood Glucose Urine WBC (Auto) 11/30/19 11/30/19 11/30/19 04:17 04:17 04:56 WBC 13.4 H RBC Hgb Hct MCHC RDW 15.6 H MCV MCH Lymph % (Auto) [place] % (Auto) [place] # Eos # Lymph # (Auto) [place] # (Auto) Eos # (Auto) Seg Neutrophils % Seg Neuts % (Manual) Baso # (Auto) Lymphocytes % (Manual) Monocytes % (Manual) Eosinophils % (Manual) Basophils % (Manual) Seg Neutrophils # Seg Neutrophils # Man Lymphocytes # (Manual) Monocytes # (Manual) Eosinophils # (Manual) Nucleated RBC % Basophils # (Manual) PT INR APTT Heparin Anti-Xa Level ABG pH POC ABG pO2 ABG pO2 56.3 L ABG HCO3 29.3 H ABG O2 Saturation 91.5 L ABG Base Excess 4.7 H POC ABG pCO2 ABG Hemoglobin 12.1 L ABG Oxyhemoglobin ABG Glucose Oxyhemoglobin 89.2 L Sodium 147 H Potassium Chloride Carbon Dioxide BUN 30 H Creatinine Glucose 124 H POC Glucose Lactic Acid Calcium Phosphorus Magnesium AST ALT Lactate Dehydrogenase CK-MB (CK-2) C-Reactive Protein NT-Pro-B Natriuret Pep Total Protein Albumin 3.8 L Arterial Blood Glucose Urine WBC (Auto) 11/30/19 11/30/19 11/30/19 05:51 11:54 18:17 WBC RBC Hgb Hct MCHC RDW MCV MCH Lymph % (Auto) [place] % (Auto) [place] # Eos # Lymph # (Auto) [place] # (Auto) Eos # (Auto) Seg Neutrophils % Seg Neuts % (Manual) Baso # (Auto) Lymphocytes % (Manual) Monocytes % (Manual) Eosinophils % (Manual) Basophils % (Manual) Seg Neutrophils # Seg Neutrophils # Man Lymphocytes # (Manual) Monocytes # (Manual) Eosinophils # (Manual) Nucleated RBC % Basophils # (Manual) PT INR APTT Heparin Anti-Xa Level ABG pH POC ABG pO2 ABG pO2 ABG HCO3 ABG O2 Saturation ABG Base Excess POC ABG pCO2 ABG Hemoglobin ABG Oxyhemoglobin ABG Glucose Oxyhemoglobin Sodium Potassium Chloride Carbon Dioxide BUN Creatinine Glucose POC Glucose 127 H 115 H 143 H Lactic Acid Calcium Phosphorus Magnesium AST ALT Lactate Dehydrogenase CK-MB (CK-2) C-Reactive Protein NT-Pro-B Natriuret Pep Total Protein Albumin Arterial Blood Glucose Urine WBC (Auto) 12/01/19 12/01/19 12/01/19 01:18 05:22 12:16 WBC RBC Hgb Hct MCHC RDW MCV MCH Lymph % (Auto) [place] % (Auto) [place] # Eos # Lymph # (Auto) [place] # (Auto) Eos # (Auto) Seg Neutrophils % Seg Neuts % (Manual) Baso # (Auto) Lymphocytes % (Manual) Monocytes % (Manual) Eosinophils % (Manual) Basophils % (Manual) Seg Neutrophils # Seg Neutrophils # Man Lymphocytes # (Manual) Monocytes # (Manual) Eosinophils # (Manual) Nucleated RBC % Basophils # (Manual) PT INR APTT Heparin Anti-Xa Level ABG pH POC ABG pO2 ABG pO2 ABG HCO3 ABG O2 Saturation ABG Base Excess POC ABG pCO2 ABG Hemoglobin ABG Oxyhemoglobin ABG Glucose Oxyhemoglobin Sodium Potassium 3.5 L Chloride 107.8 H Carbon Dioxide BUN 37 H Creatinine Glucose 157 H POC Glucose 118 H 148 H Lactic Acid Calcium 8.2 L D Phosphorus Magnesium AST 48 H ALT 60 H Lactate Dehydrogenase 194 H CK-MB (CK-2) C-Reactive Protein 8.50 H NT-Pro-B Natriuret Pep Total Protein 5.5 L Albumin 2.8 L Arterial Blood Glucose Urine WBC (Auto) 12/01/19 12/02/19 12/02/19 18:04 00:05 05:16 WBC 11.4 H RBC Hgb Hct MCHC RDW 15.9 H MCV MCH Lymph % (Auto) [place] % (Auto) 9.9 H [place] # 1.1 H Eos # Lymph # (Auto) [place] # (Auto) Eos # (Auto) Seg Neutrophils % 70.3 H Seg Neuts % (Manual) Baso # (Auto) Lymphocytes % (Manual) Monocytes % (Manual) Eosinophils % (Manual) Basophils % (Manual) Seg Neutrophils # 8.0 H Seg Neutrophils # Man Lymphocytes # (Manual) Monocytes # (Manual) Eosinophils # (Manual) Nucleated RBC % Basophils # (Manual) PT INR APTT Heparin Anti-Xa Level ABG pH POC ABG pO2 ABG pO2 ABG HCO3 ABG O2 Saturation ABG Base Excess POC ABG pCO2 ABG Hemoglobin ABG Oxyhemoglobin ABG Glucose Oxyhemoglobin Sodium Potassium Chloride Carbon Dioxide BUN Creatinine Glucose POC Glucose 143 H 107 H Lactic Acid Calcium Phosphorus Magnesium AST ALT Lactate Dehydrogenase CK-MB (CK-2) C-Reactive Protein NT-Pro-B Natriuret Pep Total Protein Albumin Arterial Blood Glucose Urine WBC (Auto) 12/02/19 12/02/19 12/02/19 05:16 06:03 11:52 WBC RBC Hgb Hct MCHC RDW MCV MCH Lymph % (Auto) [place] % (Auto) [place] # Eos # Lymph # (Auto) [place] # (Auto) Eos # (Auto) Seg Neutrophils % Seg Neuts % (Manual) Baso # (Auto) Lymphocytes % (Manual) Monocytes % (Manual) Eosinophils % (Manual) Basophils % (Manual) Seg Neutrophils # Seg Neutrophils # Man Lymphocytes # (Manual) Monocytes # (Manual) Eosinophils # (Manual) Nucleated RBC % Basophils # (Manual) PT INR APTT Heparin Anti-Xa Level ABG pH POC ABG pO2 ABG pO2 ABG HCO3 ABG O2 Saturation ABG Base Excess POC ABG pCO2 ABG Hemoglobin ABG Oxyhemoglobin ABG Glucose Oxyhemoglobin Sodium 146 H Potassium Chloride Carbon Dioxide BUN 28 H Creatinine Glucose 123 H POC Glucose 110 H 152 H Lactic Acid Calcium Phosphorus Magnesium AST ALT Lactate Dehydrogenase CK-MB (CK-2) C-Reactive Protein NT-Pro-B Natriuret Pep Total Protein Albumin Arterial Blood Glucose Urine WBC (Auto) 12/02/19 12/02/19 12/02/19 12:58 17:58 23:36 WBC RBC Hgb Hct MCHC RDW MCV MCH Lymph % (Auto) [place] % (Auto) [place] # Eos # Lymph # (Auto) [place] # (Auto) Eos # (Auto) Seg Neutrophils % Seg Neuts % (Manual) Baso # (Auto) Lymphocytes % (Manual) Monocytes % (Manual) Eosinophils % (Manual) Basophils % (Manual) Seg Neutrophils # Seg Neutrophils # Man Lymphocytes # (Manual) Monocytes # (Manual) Eosinophils # (Manual) Nucleated RBC % Basophils # (Manual) PT INR APTT Heparin Anti-Xa Level ABG pH POC ABG pO2 78.1 L ABG pO2 ABG HCO3 ABG O2 Saturation ABG Base Excess POC ABG pCO2 ABG Hemoglobin ABG Oxyhemoglobin ABG Glucose Oxyhemoglobin Sodium Potassium Chloride Carbon Dioxide BUN Creatinine Glucose POC Glucose 120 H 123 H Lactic Acid Calcium Phosphorus Magnesium AST ALT Lactate Dehydrogenase CK-MB (CK-2) C-Reactive Protein NT-Pro-B Natriuret Pep Total Protein Albumin Arterial Blood Glucose Urine WBC (Auto) 12/03/19 12/03/19 12/03/19 06:03 06:14 11:46 WBC RBC Hgb Hct MCHC RDW MCV MCH Lymph % (Auto) [place] % (Auto) [place] # Eos # Lymph # (Auto) [place] # (Auto) Eos # (Auto) Seg Neutrophils % Seg Neuts % (Manual) Baso # (Auto) Lymphocytes % (Manual) Monocytes % (Manual) Eosinophils % (Manual) Basophils % (Manual) Seg Neutrophils # Seg Neutrophils # Man Lymphocytes # (Manual) Monocytes # (Manual) Eosinophils # (Manual) Nucleated RBC % Basophils # (Manual) PT INR APTT Heparin Anti-Xa Level ABG pH POC ABG pO2 ABG pO2 ABG HCO3 ABG O2 Saturation ABG Base Excess POC ABG pCO2 ABG Hemoglobin ABG Oxyhemoglobin ABG Glucose Oxyhemoglobin Sodium Potassium Chloride Carbon Dioxide BUN Creatinine Glucose POC Glucose 142 H 130 H Lactic Acid Calcium Phosphorus Magnesium AST ALT Lactate Dehydrogenase CK-MB (CK-2) C-Reactive Protein NT-Pro-B Natriuret Pep Total Protein Albumin Arterial Blood Glucose Urine WBC (Auto) 8.0 H 12/03/19 12/03/19 12/04/19 15:50 17:39 00:04 WBC RBC Hgb Hct MCHC RDW MCV MCH Lymph % (Auto) [place] % (Auto) [place] # Eos # Lymph # (Auto) [place] # (Auto) Eos # (Auto) Seg Neutrophils % Seg Neuts % (Manual) Baso # (Auto) Lymphocytes % (Manual) Monocytes % (Manual) Eosinophils % (Manual) Basophils % (Manual) Seg Neutrophils # Seg Neutrophils # Man Lymphocytes # (Manual) Monocytes # (Manual) Eosinophils # (Manual) Nucleated RBC % Basophils # (Manual) PT INR APTT Heparin Anti-Xa Level ABG pH POC ABG pO2 ABG pO2 ABG HCO3 ABG O2 Saturation ABG Base Excess POC ABG pCO2 ABG Hemoglobin ABG Oxyhemoglobin ABG Glucose Oxyhemoglobin Sodium Potassium Chloride Carbon Dioxide BUN Creatinine Glucose POC Glucose 146 H 133 H Lactic Acid Calcium Phosphorus 2.40 L Magnesium AST ALT Lactate Dehydrogenase CK-MB (CK-2) C-Reactive Protein NT-Pro-B Natriuret Pep Total Protein Albumin Arterial Blood Glucose Urine WBC (Auto) 12/04/19 12/04/19 12/04/19 03:58 03:58 05:22 WBC 12.5 H RBC Hgb 11.2 L Hct 35.2 L MCHC RDW 16.0 H MCV MCH Lymph % (Auto) [place] % (Auto) 9.6 H [place] # 1.2 H Eos # 0.5 H Lymph # (Auto) [place] # (Auto) Eos # (Auto) Seg Neutrophils % Seg Neuts % (Manual) Baso # (Auto) Lymphocytes % (Manual) Monocytes % (Manual) Eosinophils % (Manual) Basophils % (Manual) Seg Neutrophils # 8.6 H Seg Neutrophils # Man Lymphocytes # (Manual) Monocytes # (Manual) Eosinophils # (Manual) Nucleated RBC % Basophils # (Manual) PT INR APTT Heparin Anti-Xa Level ABG pH POC ABG pO2 ABG pO2 ABG HCO3 ABG O2 Saturation ABG Base Excess POC ABG pCO2 ABG Hemoglobin ABG Oxyhemoglobin ABG Glucose Oxyhemoglobin Sodium 146 H Potassium Chloride 108.6 H Carbon Dioxide BUN 30 H Creatinine 0.7 L Glucose 121 H POC Glucose 132 H Lactic Acid Calcium Phosphorus Magnesium AST ALT Lactate Dehydrogenase CK-MB (CK-2) C-Reactive Protein NT-Pro-B Natriuret Pep Total Protein Albumin Arterial Blood Glucose Urine WBC (Auto) 12/04/19 12/04/19 12/05/19 13:26 18:43 00:19 WBC RBC Hgb Hct MCHC RDW MCV MCH Lymph % (Auto) [place] % (Auto) [place] # Eos # Lymph # (Auto) [place] # (Auto) Eos # (Auto) Seg Neutrophils % Seg Neuts % (Manual) Baso # (Auto) Lymphocytes % (Manual) Monocytes % (Manual) Eosinophils % (Manual) Basophils % (Manual) Seg Neutrophils # Seg Neutrophils # Man Lymphocytes # (Manual) Monocytes # (Manual) Eosinophils # (Manual) Nucleated RBC % Basophils # (Manual) PT INR APTT Heparin Anti-Xa Level ABG pH POC ABG pO2 ABG pO2 ABG HCO3 ABG O2 Saturation ABG Base Excess POC ABG pCO2 ABG Hemoglobin ABG Oxyhemoglobin ABG Glucose Oxyhemoglobin Sodium Potassium Chloride Carbon Dioxide BUN Creatinine Glucose POC Glucose 185 H 156 H 150 H Lactic Acid Calcium Phosphorus Magnesium AST ALT Lactate Dehydrogenase CK-MB (CK-2) C-Reactive Protein NT-Pro-B Natriuret Pep Total Protein Albumin Arterial Blood Glucose Urine WBC (Auto) 12/05/19 12/05/19 12/05/19 03:37 03:37 05:14 WBC 16.3 H RBC Hgb 11.4 L Hct MCHC RDW 15.6 H MCV MCH Lymph % (Auto) 9.9 L [place] % (Auto) 9.7 H [place] # 1.6 H Eos # Lymph # (Auto) [place] # (Auto) Eos # (Auto) Seg Neutrophils % 78.0 H Seg Neuts % (Manual) Baso # (Auto) Lymphocytes % (Manual) Monocytes % (Manual) Eosinophils % (Manual) Basophils % (Manual) Seg Neutrophils # 12.7 H Seg Neutrophils # Man Lymphocytes # (Manual) Monocytes # (Manual) Eosinophils # (Manual) Nucleated RBC % Basophils # (Manual) PT INR APTT Heparin Anti-Xa Level ABG pH POC ABG pO2 ABG pO2 ABG HCO3 ABG O2 Saturation ABG Base Excess POC ABG pCO2 ABG Hemoglobin ABG Oxyhemoglobin ABG Glucose Oxyhemoglobin Sodium 146 H Potassium Chloride 107.2 H Carbon Dioxide BUN 27 H Creatinine 0.7 L Glucose 171 H POC Glucose 168 H Lactic Acid Calcium Phosphorus Magnesium AST ALT Lactate Dehydrogenase CK-MB (CK-2) C-Reactive Protein NT-Pro-B Natriuret Pep Total Protein Albumin Arterial Blood Glucose Urine WBC (Auto) 12/05/19 12/05/19 12/05/19 12:31 18:10 23:58 WBC RBC Hgb Hct MCHC RDW MCV MCH Lymph % (Auto) [place] % (Auto) [place] # Eos # Lymph # (Auto) [place] # (Auto) Eos # (Auto) Seg Neutrophils % Seg Neuts % (Manual) Baso # (Auto) Lymphocytes % (Manual) Monocytes % (Manual) Eosinophils % (Manual) Basophils % (Manual) Seg Neutrophils # Seg Neutrophils # Man Lymphocytes # (Manual) Monocytes # (Manual) Eosinophils # (Manual) Nucleated RBC % Basophils # (Manual) PT INR APTT Heparin Anti-Xa Level ABG pH POC ABG pO2 ABG pO2 ABG HCO3 ABG O2 Saturation ABG Base Excess POC ABG pCO2 ABG Hemoglobin ABG Oxyhemoglobin ABG Glucose Oxyhemoglobin Sodium Potassium Chloride Carbon Dioxide BUN Creatinine Glucose POC Glucose 159 H 198 H 115 H Lactic Acid Calcium Phosphorus Magnesium AST ALT Lactate Dehydrogenase CK-MB (CK-2) C-Reactive Protein NT-Pro-B Natriuret Pep Total Protein Albumin Arterial Blood Glucose Urine WBC (Auto) 12/06/19 12/06/19 12/06/19 05:24 05:24 05:25 WBC 14.9 H RBC Hgb 10.8 L Hct 34.0 L MCHC RDW 15.6 H MCV MCH Lymph % (Auto) 10.7 L [place] % (Auto) 8.3 H [place] # 1.2 H Eos # Lymph # (Auto) [place] # (Auto) Eos # (Auto) Seg Neutrophils % 78.7 H Seg Neuts % (Manual) Baso # (Auto) Lymphocytes % (Manual) Monocytes % (Manual) Eosinophils % (Manual) Basophils % (Manual) Seg Neutrophils # 11.7 H Seg Neutrophils # Man Lymphocytes # (Manual) Monocytes # (Manual) Eosinophils # (Manual) Nucleated RBC % Basophils # (Manual) PT INR APTT Heparin Anti-Xa Level ABG pH POC ABG pO2 ABG pO2 ABG HCO3 ABG O2 Saturation ABG Base Excess POC ABG pCO2 ABG Hemoglobin ABG Oxyhemoglobin ABG Glucose Oxyhemoglobin Sodium 148 H Potassium 5.1 H Chloride 107.6 H Carbon Dioxide BUN 27 H Creatinine 0.7 L Glucose 155 H POC Glucose 157 H Lactic Acid Calcium Phosphorus Magnesium AST ALT Lactate Dehydrogenase CK-MB (CK-2) C-Reactive Protein NT-Pro-B Natriuret Pep Total Protein Albumin Arterial Blood Glucose Urine WBC (Auto) 12/07/19 12/07/19 12/07/19 00:13 05:34 11:33 WBC RBC Hgb Hct MCHC RDW MCV MCH Lymph % (Auto) [place] % (Auto) [place] # Eos # Lymph # (Auto) [place] # (Auto) Eos # (Auto) Seg Neutrophils % Seg Neuts % (Manual) Baso # (Auto) Lymphocytes % (Manual) Monocytes % (Manual) Eosinophils % (Manual) Basophils % (Manual) Seg Neutrophils # Seg Neutrophils # Man Lymphocytes # (Manual) Monocytes # (Manual) Eosinophils # (Manual) Nucleated RBC % Basophils # (Manual) PT INR APTT Heparin Anti-Xa Level ABG pH POC ABG pO2 ABG pO2 ABG HCO3 ABG O2 Saturation ABG Base Excess POC ABG pCO2 ABG Hemoglobin ABG Oxyhemoglobin ABG Glucose Oxyhemoglobin Sodium Potassium Chloride Carbon Dioxide BUN Creatinine Glucose POC Glucose 142 H 111 H 169 H Lactic Acid Calcium Phosphorus Magnesium AST ALT Lactate Dehydrogenase CK-MB (CK-2) C-Reactive Protein NT-Pro-B Natriuret Pep Total Protein Albumin Arterial Blood Glucose Urine WBC (Auto) 12/07/19 12/07/19 12/07/19 12:41 13:25 18:19 WBC 12.4 H RBC 3.53 L Hgb 10.2 L Hct 32.1 L MCHC RDW 15.3 H MCV MCH Lymph % (Auto) 10.6 L [place] % (Auto) 7.8 H [place] # 1.0 H Eos # Lymph # (Auto) [place] # (Auto) Eos # (Auto) Seg Neutrophils % 77.6 H Seg Neuts % (Manual) Baso # (Auto) Lymphocytes % (Manual) Monocytes % (Manual) Eosinophils % (Manual) Basophils % (Manual) Seg Neutrophils # 9.6 H Seg Neutrophils # Man Lymphocytes # (Manual) Monocytes # (Manual) Eosinophils # (Manual) Nucleated RBC % Basophils # (Manual) PT INR APTT Heparin Anti-Xa Level ABG pH POC ABG pO2 ABG pO2 ABG HCO3 ABG O2 Saturation ABG Base Excess POC ABG pCO2 ABG Hemoglobin ABG Oxyhemoglobin ABG Glucose Oxyhemoglobin Sodium 149 H Potassium Chloride 108.4 H Carbon Dioxide BUN 26 H Creatinine 0.6 L Glucose 149 H POC Glucose 164 H Lactic Acid Calcium Phosphorus Magnesium 2.60 H AST 121 H ALT 145 H Lactate Dehydrogenase CK-MB (CK-2) C-Reactive Protein NT-Pro-B Natriuret Pep Total Protein Albumin 2.6 L Arterial Blood Glucose Urine WBC (Auto) 12/07/19 12/08/19 12/08/19 22:25 00:02 03:55 WBC 13.3 H RBC 3.40 L Hgb 9.7 L Hct 30.8 L MCHC 31 L RDW 15.5 H MCV MCH Lymph % (Auto) [place] % (Auto) 8.1 H [place] # 1.1 H Eos # Lymph # (Auto) [place] # (Auto) Eos # (Auto) Seg Neutrophils % 73.0 H Seg Neuts % (Manual) Baso # (Auto) Lymphocytes % (Manual) Monocytes % (Manual) Eosinophils % (Manual) Basophils % (Manual) Seg Neutrophils # 9.7 H Seg Neutrophils # Man Lymphocytes # (Manual) Monocytes # (Manual) Eosinophils # (Manual) Nucleated RBC % Basophils # (Manual) PT INR APTT Heparin Anti-Xa Level 0.12 L ABG pH POC ABG pO2 ABG pO2 ABG HCO3 ABG O2 Saturation ABG Base Excess POC ABG pCO2 ABG Hemoglobin ABG Oxyhemoglobin ABG Glucose Oxyhemoglobin Sodium Potassium Chloride Carbon Dioxide BUN Creatinine Glucose POC Glucose 151 H Lactic Acid Calcium Phosphorus Magnesium AST ALT Lactate Dehydrogenase CK-MB (CK-2) C-Reactive Protein NT-Pro-B Natriuret Pep Total Protein Albumin Arterial Blood Glucose Urine WBC (Auto) 12/08/19 12/08/19 12/08/19 03:55 05:21 06:01 WBC RBC Hgb Hct MCHC RDW MCV MCH Lymph % (Auto) [place] % (Auto) [place] # Eos # Lymph # (Auto) [place] # (Auto) Eos # (Auto) Seg Neutrophils % Seg Neuts % (Manual) Baso # (Auto) Lymphocytes % (Manual) Monocytes % (Manual) Eosinophils % (Manual) Basophils % (Manual) Seg Neutrophils # Seg Neutrophils # Man Lymphocytes # (Manual) Monocytes # (Manual) Eosinophils # (Manual) Nucleated RBC % Basophils # (Manual) PT INR APTT Heparin Anti-Xa Level 0.20 L ABG pH POC ABG pO2 ABG pO2 ABG HCO3 ABG O2 Saturation ABG Base Excess POC ABG pCO2 ABG Hemoglobin ABG Oxyhemoglobin ABG Glucose Oxyhemoglobin Sodium 149 H Potassium Chloride 108.0 H Carbon Dioxide BUN 28 H Creatinine 0.6 L Glucose 144 H POC Glucose 143 H Lactic Acid Calcium Phosphorus Magnesium AST 98 H ALT 145 H Lactate Dehydrogenase CK-MB (CK-2) C-Reactive Protein NT-Pro-B Natriuret Pep Total Protein 6.0 L Albumin 2.4 L Arterial Blood Glucose Urine WBC (Auto) 12/08/19 12/08/19 12/08/19 12:08 18:11 23:53 WBC RBC Hgb Hct MCHC RDW MCV MCH Lymph % (Auto) [place] % (Auto) [place] # Eos # Lymph # (Auto) [place] # (Auto) Eos # (Auto) Seg Neutrophils % Seg Neuts % (Manual) Baso # (Auto) Lymphocytes % (Manual) Monocytes % (Manual) Eosinophils % (Manual) Basophils % (Manual) Seg Neutrophils # Seg Neutrophils # Man Lymphocytes # (Manual) Monocytes # (Manual) Eosinophils # (Manual) Nucleated RBC % Basophils # (Manual) PT INR APTT Heparin Anti-Xa Level ABG pH POC ABG pO2 ABG pO2 ABG HCO3 ABG O2 Saturation ABG Base Excess POC ABG pCO2 ABG Hemoglobin ABG Oxyhemoglobin ABG Glucose Oxyhemoglobin Sodium Potassium Chloride Carbon Dioxide BUN Creatinine Glucose POC Glucose 172 H 122 H 162 H Lactic Acid Calcium Phosphorus Magnesium AST ALT Lactate Dehydrogenase CK-MB (CK-2) C-Reactive Protein NT-Pro-B Natriuret Pep Total Protein Albumin Arterial Blood Glucose Urine WBC (Auto) 12/09/19 12/09/19 12/09/19 04:03 04:03 05:53 WBC RBC Hgb 9.1 L Hct 28.9 L MCHC RDW MCV MCH Lymph % (Auto) [place] % (Auto) [place] # Eos # Lymph # (Auto) [place] # (Auto) Eos # (Auto) Seg Neutrophils % Seg Neuts % (Manual) Baso # (Auto) Lymphocytes % (Manual) Monocytes % (Manual) Eosinophils % (Manual) Basophils % (Manual) Seg Neutrophils # Seg Neutrophils # Man Lymphocytes # (Manual) Monocytes # (Manual) Eosinophils # (Manual) Nucleated RBC % Basophils # (Manual) PT INR APTT Heparin Anti-Xa Level 0.15 L ABG pH POC ABG pO2 ABG pO2 ABG HCO3 ABG O2 Saturation ABG Base Excess POC ABG pCO2 ABG Hemoglobin ABG Oxyhemoglobin ABG Glucose Oxyhemoglobin Sodium Potassium Chloride Carbon Dioxide BUN Creatinine Glucose POC Glucose 124 H Lactic Acid Calcium Phosphorus Magnesium AST ALT Lactate Dehydrogenase CK-MB (CK-2) C-Reactive Protein NT-Pro-B Natriuret Pep Total Protein Albumin Arterial Blood Glucose Urine WBC (Auto) 12/09/19 12/09/19 12/10/19 09:43 12:41 00:13 WBC RBC Hgb Hct MCHC RDW MCV MCH Lymph % (Auto) [place] % (Auto) [place] # Eos # Lymph # (Auto) [place] # (Auto) Eos # (Auto) Seg Neutrophils % Seg Neuts % (Manual) Baso # (Auto) Lymphocytes % (Manual) Monocytes % (Manual) Eosinophils % (Manual) Basophils % (Manual) Seg Neutrophils # Seg Neutrophils # Man Lymphocytes # (Manual) Monocytes # (Manual) Eosinophils # (Manual) Nucleated RBC % Basophils # (Manual) PT INR APTT Heparin Anti-Xa Level ABG pH POC ABG pO2 ABG pO2 ABG HCO3 ABG O2 Saturation ABG Base Excess POC ABG pCO2 ABG Hemoglobin ABG Oxyhemoglobin ABG Glucose Oxyhemoglobin Sodium Potassium Chloride Carbon Dioxide BUN 25 H Creatinine 0.6 L Glucose 131 H POC Glucose 109 H 120 H Lactic Acid Calcium Phosphorus Magnesium AST ALT Lactate Dehydrogenase CK-MB (CK-2) C-Reactive Protein NT-Pro-B Natriuret Pep Total Protein Albumin Arterial Blood Glucose Urine WBC (Auto) 12/10/19 12/10/19 12/10/19 04:14 04:14 12:00 WBC 13.3 H RBC 3.34 L Hgb 9.6 L Hct 30.4 L MCHC RDW 15.4 H MCV MCH Lymph % (Auto) [place] % (Auto) [place] # Eos # Lymph # (Auto) [place] # (Auto) Eos # (Auto) Seg Neutrophils % Seg Neuts % (Manual) 75.0 H Baso # (Auto) Lymphocytes % (Manual) 13.0 L Monocytes % (Manual) 8.0 H Eosinophils % (Manual) Basophils % (Manual) 2.0 H Seg Neutrophils # Seg Neutrophils # Man 10.0 H Lymphocytes # (Manual) Monocytes # (Manual) 1.1 H Eosinophils # (Manual) Nucleated RBC % Basophils # (Manual) 0.3 H PT INR APTT Heparin Anti-Xa Level ABG pH POC ABG pO2 ABG pO2 ABG HCO3 ABG O2 Saturation ABG Base Excess POC ABG pCO2 ABG Hemoglobin ABG Oxyhemoglobin ABG Glucose Oxyhemoglobin Sodium 147 H Potassium Chloride 108.3 H Carbon Dioxide BUN 21 H Creatinine 0.6 L Glucose 104 H POC Glucose 133 H Lactic Acid Calcium Phosphorus Magnesium AST ALT Lactate Dehydrogenase CK-MB (CK-2) C-Reactive Protein NT-Pro-B Natriuret Pep Total Protein Albumin Arterial Blood Glucose Urine WBC (Auto) 12/10/19 12/10/19 12/11/19 18:44 21:20 00:08 WBC 14.9 H RBC 3.36 L Hgb 9.6 L Hct 30.5 L MCHC RDW 15.4 H MCV MCH Lymph % (Auto) [place] % (Auto) [place] # Eos # Lymph # (Auto) [place] # (Auto) Eos # (Auto) Seg Neutrophils % Seg Neuts % (Manual) Baso # (Auto) Lymphocytes % (Manual) Monocytes % (Manual) Eosinophils % (Manual) Basophils % (Manual) Seg Neutrophils # Seg Neutrophils # Man Lymphocytes # (Manual) Monocytes # (Manual) Eosinophils # (Manual) Nucleated RBC % Basophils # (Manual) PT INR APTT Heparin Anti-Xa Level ABG pH POC ABG pO2 ABG pO2 ABG HCO3 ABG O2 Saturation ABG Base Excess POC ABG pCO2 ABG Hemoglobin ABG Oxyhemoglobin ABG Glucose Oxyhemoglobin Sodium Potassium Chloride Carbon Dioxide BUN Creatinine Glucose POC Glucose 119 H 134 H Lactic Acid Calcium Phosphorus Magnesium AST ALT Lactate Dehydrogenase CK-MB (CK-2) C-Reactive Protein NT-Pro-B Natriuret Pep Total Protein Albumin Arterial Blood Glucose Urine WBC (Auto) 12/11/19 12/11/19 12/11/19 03:54 07:28 08:36 WBC 11.9 H RBC 3.25 L Hgb 9.6 L Hct 29.2 L MCHC RDW 15.7 H MCV MCH Lymph % (Auto) [place] % (Auto) [place] # Eos # Lymph # (Auto) [place] # (Auto) Eos # (Auto) Seg Neutrophils % Seg Neuts % (Manual) Baso # (Auto) Lymphocytes % (Manual) Monocytes % (Manual) Eosinophils % (Manual) Basophils % (Manual) Seg Neutrophils # Seg Neutrophils # Man Lymphocytes # (Manual) Monocytes # (Manual) Eosinophils # (Manual) Nucleated RBC % Basophils # (Manual) PT INR APTT Heparin Anti-Xa Level 0.10 L 0.16 L ABG pH POC ABG pO2 ABG pO2 ABG HCO3 ABG O2 Saturation ABG Base Excess POC ABG pCO2 ABG Hemoglobin ABG Oxyhemoglobin ABG Glucose Oxyhemoglobin Sodium Potassium Chloride Carbon Dioxide BUN Creatinine Glucose POC Glucose Lactic Acid Calcium Phosphorus Magnesium AST ALT Lactate Dehydrogenase CK-MB (CK-2) C-Reactive Protein NT-Pro-B Natriuret Pep Total Protein Albumin Arterial Blood Glucose Urine WBC (Auto) 12/11/19 12/11/19 12/11/19 08:36 11:45 17:15 WBC RBC Hgb Hct MCHC RDW MCV MCH Lymph % (Auto) [place] % (Auto) [place] # Eos # Lymph # (Auto) [place] # (Auto) Eos # (Auto) Seg Neutrophils % Seg Neuts % (Manual) Baso # (Auto) Lymphocytes % (Manual) Monocytes % (Manual) Eosinophils % (Manual) Basophils % (Manual) Seg Neutrophils # Seg Neutrophils # Man Lymphocytes # (Manual) Monocytes # (Manual) Eosinophils # (Manual) Nucleated RBC % Basophils # (Manual) PT INR APTT Heparin Anti-Xa Level ABG pH POC ABG pO2 ABG pO2 ABG HCO3 ABG O2 Saturation ABG Base Excess POC ABG pCO2 ABG Hemoglobin ABG Oxyhemoglobin ABG Glucose Oxyhemoglobin Sodium Potassium Chloride Carbon Dioxide BUN Creatinine 0.5 L Glucose 128 H POC Glucose 136 H 109 H Lactic Acid Calcium Phosphorus Magnesium AST ALT Lactate Dehydrogenase CK-MB (CK-2) C-Reactive Protein NT-Pro-B Natriuret Pep Total Protein Albumin Arterial Blood Glucose Urine WBC (Auto) 12/12/19 12/12/19 12/12/19 00:03 05:53 05:53 WBC RBC Hgb 8.8 L Hct 27.6 L MCHC RDW MCV MCH Lymph % (Auto) [place] % (Auto) [place] # Eos # Lymph # (Auto) [place] # (Auto) Eos # (Auto) Seg Neutrophils % Seg Neuts % (Manual) Baso # (Auto) Lymphocytes % (Manual) Monocytes % (Manual) Eosinophils % (Manual) Basophils % (Manual) Seg Neutrophils # Seg Neutrophils # Man Lymphocytes # (Manual) Monocytes # (Manual) Eosinophils # (Manual) Nucleated RBC % Basophils # (Manual) PT INR APTT Heparin Anti-Xa Level 0.22 L ABG pH POC ABG pO2 ABG pO2 ABG HCO3 ABG O2 Saturation ABG Base Excess POC ABG pCO2 ABG Hemoglobin ABG Oxyhemoglobin ABG Glucose Oxyhemoglobin Sodium Potassium Chloride Carbon Dioxide BUN Creatinine Glucose POC Glucose 116 H Lactic Acid Calcium Phosphorus Magnesium AST ALT Lactate Dehydrogenase CK-MB (CK-2) C-Reactive Protein NT-Pro-B Natriuret Pep Total Protein Albumin Arterial Blood Glucose Urine WBC (Auto) 12/12/19 12/12/19 12/12/19 09:38 12:18 17:44 WBC RBC Hgb Hct MCHC RDW MCV MCH Lymph % (Auto) [place] % (Auto) [place] # Eos # Lymph # (Auto) [place] # (Auto) Eos # (Auto) Seg Neutrophils % Seg Neuts % (Manual) Baso # (Auto) Lymphocytes % (Manual) Monocytes % (Manual) Eosinophils % (Manual) Basophils % (Manual) Seg Neutrophils # Seg Neutrophils # Man Lymphocytes # (Manual) Monocytes # (Manual) Eosinophils # (Manual) Nucleated RBC % Basophils # (Manual) PT INR APTT Heparin Anti-Xa Level ABG pH POC ABG pO2 ABG pO2 ABG HCO3 ABG O2 Saturation ABG Base Excess POC ABG pCO2 ABG Hemoglobin ABG Oxyhemoglobin ABG Glucose Oxyhemoglobin Sodium Potassium Chloride Carbon Dioxide BUN Creatinine Glucose POC Glucose 115 H 146 H 146 H Lactic Acid Calcium Phosphorus Magnesium AST ALT Lactate Dehydrogenase CK-MB (CK-2) C-Reactive Protein NT-Pro-B Natriuret Pep Total Protein Albumin Arterial Blood Glucose Urine WBC (Auto) 12/12/19 12/13/19 12/13/19 23:33 05:32 05:32 WBC 13.1 H RBC 3.27 L Hgb 9.5 L Hct 29.3 L MCHC RDW 15.6 H MCV MCH Lymph % (Auto) [place] % (Auto) [place] # Eos # Lymph # (Auto) [place] # (Auto) Eos # (Auto) Seg Neutrophils % Seg Neuts % (Manual) 74.0 H Baso # (Auto) Lymphocytes % (Manual) 8.0 L Monocytes % (Manual) 9.0 H Eosinophils % (Manual) 5.0 H Basophils % (Manual) Seg Neutrophils # Seg Neutrophils # Man 9.7 H Lymphocytes # (Manual) 1.0 L Monocytes # (Manual) 1.2 H Eosinophils # (Manual) 0.7 H Nucleated RBC % Basophils # (Manual) PT INR APTT Heparin Anti-Xa Level 0.20 L ABG pH POC ABG pO2 ABG pO2 ABG HCO3 ABG O2 Saturation ABG Base Excess POC ABG pCO2 ABG Hemoglobin ABG Oxyhemoglobin ABG Glucose Oxyhemoglobin Sodium Potassium Chloride Carbon Dioxide BUN Creatinine Glucose POC Glucose 126 H Lactic Acid Calcium Phosphorus Magnesium AST ALT Lactate Dehydrogenase CK-MB (CK-2) C-Reactive Protein NT-Pro-B Natriuret Pep Total Protein Albumin Arterial Blood Glucose Urine WBC (Auto) 12/13/19 12/13/19 12/13/19 05:32 05:46 11:57 WBC RBC Hgb Hct MCHC RDW MCV MCH Lymph % (Auto) [place] % (Auto) [place] # Eos # Lymph # (Auto) [place] # (Auto) Eos # (Auto) Seg Neutrophils % Seg Neuts % (Manual) Baso # (Auto) Lymphocytes % (Manual) Monocytes % (Manual) Eosinophils % (Manual) Basophils % (Manual) Seg Neutrophils # Seg Neutrophils # Man Lymphocytes # (Manual) Monocytes # (Manual) Eosinophils # (Manual) Nucleated RBC % Basophils # (Manual) PT INR APTT Heparin Anti-Xa Level ABG pH POC ABG pO2 ABG pO2 ABG HCO3 ABG O2 Saturation ABG Base Excess POC ABG pCO2 ABG Hemoglobin ABG Oxyhemoglobin ABG Glucose Oxyhemoglobin Sodium Potassium Chloride Carbon Dioxide 31 H BUN Creatinine 0.6 L Glucose 114 H POC Glucose 118 H 133 H Lactic Acid Calcium Phosphorus Magnesium AST ALT Lactate Dehydrogenase CK-MB (CK-2) C-Reactive Protein NT-Pro-B Natriuret Pep Total Protein Albumin Arterial Blood Glucose Urine WBC (Auto) 12/13/19 12/13/19 12/14/19 17:44 23:46 05:32 WBC RBC Hgb Hct MCHC RDW MCV MCH Lymph % (Auto) [place] % (Auto) [place] # Eos # Lymph # (Auto) [place] # (Auto) Eos # (Auto) Seg Neutrophils % Seg Neuts % (Manual) Baso # (Auto) Lymphocytes % (Manual) Monocytes % (Manual) Eosinophils % (Manual) Basophils % (Manual) Seg Neutrophils # Seg Neutrophils # Man Lymphocytes # (Manual) Monocytes # (Manual) Eosinophils # (Manual) Nucleated RBC % Basophils # (Manual) PT INR APTT Heparin Anti-Xa Level ABG pH POC ABG pO2 ABG pO2 ABG HCO3 ABG O2 Saturation ABG Base Excess POC ABG pCO2 ABG Hemoglobin ABG Oxyhemoglobin ABG Glucose Oxyhemoglobin Sodium Potassium Chloride Carbon Dioxide BUN Creatinine Glucose POC Glucose 161 H 126 H 139 H Lactic Acid Calcium Phosphorus Magnesium AST ALT Lactate Dehydrogenase CK-MB (CK-2) C-Reactive Protein NT-Pro-B Natriuret Pep Total Protein Albumin Arterial Blood Glucose Urine WBC (Auto) 12/14/19 12/14/19 12/14/19 06:03 06:03 09:37 WBC RBC Hgb 9.6 L Hct 30.4 L MCHC RDW MCV MCH Lymph % (Auto) [place] % (Auto) [place] # Eos # Lymph # (Auto) [place] # (Auto) Eos # (Auto) Seg Neutrophils % Seg Neuts % (Manual) Baso # (Auto) Lymphocytes % (Manual) Monocytes % (Manual) Eosinophils % (Manual) Basophils % (Manual) Seg Neutrophils # Seg Neutrophils # Man Lymphocytes # (Manual) Monocytes # (Manual) Eosinophils # (Manual) Nucleated RBC % Basophils # (Manual) PT INR APTT Heparin Anti-Xa Level 0.24 L ABG pH POC ABG pO2 ABG pO2 ABG HCO3 ABG O2 Saturation ABG Base Excess POC ABG pCO2 ABG Hemoglobin ABG Oxyhemoglobin ABG Glucose Oxyhemoglobin Sodium Potassium Chloride Carbon Dioxide BUN Creatinine 0.6 L Glucose 162 H POC Glucose Lactic Acid Calcium Phosphorus Magnesium AST 71 H ALT 118 H Lactate Dehydrogenase CK-MB (CK-2) C-Reactive Protein NT-Pro-B Natriuret Pep Total Protein 6.2 L Albumin 2.3 L Arterial Blood Glucose Urine WBC (Auto) 12/14/19 12/14/19 12/15/19 12:06 18:18 00:19 WBC RBC Hgb Hct MCHC RDW MCV MCH Lymph % (Auto) [place] % (Auto) [place] # Eos # Lymph # (Auto) [place] # (Auto) Eos # (Auto) Seg Neutrophils % Seg Neuts % (Manual) Baso # (Auto) Lymphocytes % (Manual) Monocytes % (Manual) Eosinophils % (Manual) Basophils % (Manual) Seg Neutrophils # Seg Neutrophils # Man Lymphocytes # (Manual) Monocytes # (Manual) Eosinophils # (Manual) Nucleated RBC % Basophils # (Manual) PT INR APTT Heparin Anti-Xa Level ABG pH POC ABG pO2 ABG pO2 ABG HCO3 ABG O2 Saturation ABG Base Excess POC ABG pCO2 ABG Hemoglobin ABG Oxyhemoglobin ABG Glucose Oxyhemoglobin Sodium Potassium Chloride Carbon Dioxide BUN Creatinine Glucose POC Glucose 147 H 166 H 123 H Lactic Acid Calcium Phosphorus Magnesium AST ALT Lactate Dehydrogenase CK-MB (CK-2) C-Reactive Protein NT-Pro-B Natriuret Pep Total Protein Albumin Arterial Blood Glucose Urine WBC (Auto) 12/15/19 12/15/19 12/15/19 05:28 05:29 05:29 WBC 14.9 H RBC 3.19 L Hgb 9.1 L Hct 28.7 L MCHC RDW 16.0 H MCV MCH Lymph % (Auto) [place] % (Auto) [place] # Eos # Lymph # (Auto) [place] # (Auto) Eos # (Auto) Seg Neutrophils % Seg Neuts % (Manual) Baso # (Auto) Lymphocytes % (Manual) Monocytes % (Manual) Eosinophils % (Manual) Basophils % (Manual) Seg Neutrophils # Seg Neutrophils # Man Lymphocytes # (Manual) Monocytes # (Manual) Eosinophils # (Manual) Nucleated RBC % Basophils # (Manual) PT INR APTT Heparin Anti-Xa Level 0.19 L ABG pH POC ABG pO2 ABG pO2 ABG HCO3 ABG O2 Saturation ABG Base Excess POC ABG pCO2 ABG Hemoglobin ABG Oxyhemoglobin ABG Glucose Oxyhemoglobin Sodium Potassium Chloride Carbon Dioxide BUN Creatinine 0.6 L Glucose 110 H POC Glucose Lactic Acid Calcium Phosphorus Magnesium AST ALT Lactate Dehydrogenase CK-MB (CK-2) C-Reactive Protein NT-Pro-B Natriuret Pep Total Protein Albumin Arterial Blood Glucose Urine WBC (Auto) 12/15/19 12/15/19 12/15/19 05:53 11:50 17:26 WBC RBC Hgb Hct MCHC RDW MCV MCH Lymph % (Auto) [place] % (Auto) [place] # Eos # Lymph # (Auto) [place] # (Auto) Eos # (Auto) Seg Neutrophils % Seg Neuts % (Manual) Baso # (Auto) Lymphocytes % (Manual) Monocytes % (Manual) Eosinophils % (Manual) Basophils % (Manual) Seg Neutrophils # Seg Neutrophils # Man Lymphocytes # (Manual) Monocytes # (Manual) Eosinophils # (Manual) Nucleated RBC % Basophils # (Manual) PT INR APTT Heparin Anti-Xa Level ABG pH POC ABG pO2 ABG pO2 ABG HCO3 ABG O2 Saturation ABG Base Excess POC ABG pCO2 ABG Hemoglobin ABG Oxyhemoglobin ABG Glucose Oxyhemoglobin Sodium Potassium Chloride Carbon Dioxide BUN Creatinine Glucose POC Glucose 119 H 132 H 128 H Lactic Acid Calcium Phosphorus Magnesium AST ALT Lactate Dehydrogenase CK-MB (CK-2) C-Reactive Protein NT-Pro-B Natriuret Pep Total Protein Albumin Arterial Blood Glucose Urine WBC (Auto) 12/15/19 12/16/19 12/16/19 23:11 05:30 05:46 WBC RBC Hgb 8.8 L Hct 27.9 L MCHC RDW MCV MCH Lymph % (Auto) [place] % (Auto) [place] # Eos # Lymph # (Auto) [place] # (Auto) Eos # (Auto) Seg Neutrophils % Seg Neuts % (Manual) Baso # (Auto) Lymphocytes % (Manual) Monocytes % (Manual) Eosinophils % (Manual) Basophils % (Manual) Seg Neutrophils # Seg Neutrophils # Man Lymphocytes # (Manual) Monocytes # (Manual) Eosinophils # (Manual) Nucleated RBC % Basophils # (Manual) PT INR APTT Heparin Anti-Xa Level ABG pH POC ABG pO2 ABG pO2 ABG HCO3 ABG O2 Saturation ABG Base Excess POC ABG pCO2 ABG Hemoglobin ABG Oxyhemoglobin ABG Glucose Oxyhemoglobin Sodium Potassium Chloride Carbon Dioxide BUN Creatinine Glucose POC Glucose 150 H 134 H Lactic Acid Calcium Phosphorus Magnesium AST ALT Lactate Dehydrogenase CK-MB (CK-2) C-Reactive Protein NT-Pro-B Natriuret Pep Total Protein Albumin Arterial Blood Glucose Urine WBC (Auto) 12/16/19 12/16/19 12/16/19 05:46 05:46 11:44 WBC RBC Hgb Hct MCHC RDW MCV MCH Lymph % (Auto) [place] % (Auto) [place] # Eos # Lymph # (Auto) [place] # (Auto) Eos # (Auto) Seg Neutrophils % Seg Neuts % (Manual) Baso # (Auto) Lymphocytes % (Manual) Monocytes % (Manual) Eosinophils % (Manual) Basophils % (Manual) Seg Neutrophils # Seg Neutrophils # Man Lymphocytes # (Manual) Monocytes # (Manual) Eosinophils # (Manual) Nucleated RBC % Basophils # (Manual) PT INR APTT Heparin Anti-Xa Level 0.20 L ABG pH POC ABG pO2 ABG pO2 ABG HCO3 ABG O2 Saturation ABG Base Excess POC ABG pCO2 ABG Hemoglobin ABG Oxyhemoglobin ABG Glucose Oxyhemoglobin Sodium Potassium Chloride Carbon Dioxide 31 H BUN Creatinine 0.5 L Glucose 147 H POC Glucose 164 H Lactic Acid Calcium Phosphorus Magnesium AST ALT Lactate Dehydrogenase CK-MB (CK-2) C-Reactive Protein NT-Pro-B Natriuret Pep Total Protein Albumin Arterial Blood Glucose Urine WBC (Auto) 12/16/19 12/16/19 12/17/19 17:17 23:49 05:30 WBC 13.9 H RBC 3.27 L Hgb 9.4 L Hct 29.2 L MCHC RDW 16.0 H MCV MCH Lymph % (Auto) [place] % (Auto) 8.8 H [place] # Eos # Lymph # (Auto) [place] # (Auto) 1.2 H Eos # (Auto) 0.5 H Seg Neutrophils % 70.5 H Seg Neuts % (Manual) Baso # (Auto) 0.2 H Lymphocytes % (Manual) Monocytes % (Manual) Eosinophils % (Manual) Basophils % (Manual) Seg Neutrophils # 9.8 H Seg Neutrophils # Man Lymphocytes # (Manual) Monocytes # (Manual) Eosinophils # (Manual) Nucleated RBC % Basophils # (Manual) PT INR APTT Heparin Anti-Xa Level ABG pH POC ABG pO2 ABG pO2 ABG HCO3 ABG O2 Saturation ABG Base Excess POC ABG pCO2 ABG Hemoglobin ABG Oxyhemoglobin ABG Glucose Oxyhemoglobin Sodium Potassium Chloride Carbon Dioxide BUN Creatinine Glucose POC Glucose 162 H 144 H Lactic Acid Calcium Phosphorus Magnesium AST ALT Lactate Dehydrogenase CK-MB (CK-2) C-Reactive Protein NT-Pro-B Natriuret Pep Total Protein Albumin Arterial Blood Glucose Urine WBC (Auto) 12/17/19 12/17/19 12/17/19 05:30 06:06 11:50 WBC RBC Hgb Hct MCHC RDW MCV MCH Lymph % (Auto) [place] % (Auto) [place] # Eos # Lymph # (Auto) [place] # (Auto) Eos # (Auto) Seg Neutrophils % Seg Neuts % (Manual) Baso # (Auto) Lymphocytes % (Manual) Monocytes % (Manual) Eosinophils % (Manual) Basophils % (Manual) Seg Neutrophils # Seg Neutrophils # Man Lymphocytes # (Manual) Monocytes # (Manual) Eosinophils # (Manual) Nucleated RBC % Basophils # (Manual) PT INR APTT Heparin Anti-Xa Level ABG pH POC ABG pO2 ABG pO2 ABG HCO3 ABG O2 Saturation ABG Base Excess POC ABG pCO2 ABG Hemoglobin ABG Oxyhemoglobin ABG Glucose Oxyhemoglobin Sodium Potassium Chloride 97.4 L Carbon Dioxide 32 H BUN Creatinine 0.5 L Glucose 135 H POC Glucose 151 H 140 H Lactic Acid Calcium Phosphorus Magnesium AST ALT Lactate Dehydrogenase CK-MB (CK-2) C-Reactive Protein NT-Pro-B Natriuret Pep Total Protein Albumin Arterial Blood Glucose Urine WBC (Auto) 12/17/19 12/17/19 12/18/19 17:50 23:46 05:17 WBC RBC Hgb 8.8 L Hct 28.0 L MCHC RDW MCV MCH Lymph % (Auto) [place] % (Auto) [place] # Eos # Lymph # (Auto) [place] # (Auto) Eos # (Auto) Seg Neutrophils % Seg Neuts % (Manual) Baso # (Auto) Lymphocytes % (Manual) Monocytes % (Manual) Eosinophils % (Manual) Basophils % (Manual) Seg Neutrophils # Seg Neutrophils # Man Lymphocytes # (Manual) Monocytes # (Manual) Eosinophils # (Manual) Nucleated RBC % Basophils # (Manual) PT INR APTT Heparin Anti-Xa Level ABG pH POC ABG pO2 ABG pO2 ABG HCO3 ABG O2 Saturation ABG Base Excess POC ABG pCO2 ABG Hemoglobin ABG Oxyhemoglobin ABG Glucose Oxyhemoglobin Sodium Potassium Chloride Carbon Dioxide BUN Creatinine Glucose POC Glucose 158 H 150 H Lactic Acid Calcium Phosphorus Magnesium AST ALT Lactate Dehydrogenase CK-MB (CK-2) C-Reactive Protein NT-Pro-B Natriuret Pep Total Protein Albumin Arterial Blood Glucose Urine WBC (Auto) 12/18/19 12/18/19 12/18/19 05:17 05:49 11:12 WBC RBC Hgb Hct MCHC RDW MCV MCH Lymph % (Auto) [place] % (Auto) [place] # Eos # Lymph # (Auto) [place] # (Auto) Eos # (Auto) Seg Neutrophils % Seg Neuts % (Manual) Baso # (Auto) Lymphocytes % (Manual) Monocytes % (Manual) Eosinophils % (Manual) Basophils % (Manual) Seg Neutrophils # Seg Neutrophils # Man Lymphocytes # (Manual) Monocytes # (Manual) Eosinophils # (Manual) Nucleated RBC % Basophils # (Manual) PT INR APTT Heparin Anti-Xa Level 0.16 L ABG pH POC ABG pO2 ABG pO2 ABG HCO3 ABG O2 Saturation ABG Base Excess POC ABG pCO2 ABG Hemoglobin ABG Oxyhemoglobin ABG Glucose Oxyhemoglobin Sodium Potassium Chloride Carbon Dioxide BUN Creatinine Glucose POC Glucose 127 H 191 H Lactic Acid Calcium Phosphorus Magnesium AST ALT Lactate Dehydrogenase CK-MB (CK-2) C-Reactive Protein NT-Pro-B Natriuret Pep Total Protein Albumin Arterial Blood Glucose Urine WBC (Auto) 12/18/19 12/18/19 12/19/19 17:03 20:16 00:08 WBC RBC Hgb Hct MCHC RDW MCV MCH Lymph % (Auto) [place] % (Auto) [place] # Eos # Lymph # (Auto) [place] # (Auto) Eos # (Auto) Seg Neutrophils % Seg Neuts % (Manual) Baso # (Auto) Lymphocytes % (Manual) Monocytes % (Manual) Eosinophils % (Manual) Basophils % (Manual) Seg Neutrophils # Seg Neutrophils # Man Lymphocytes # (Manual) Monocytes # (Manual) Eosinophils # (Manual) Nucleated RBC % Basophils # (Manual) PT INR APTT Heparin Anti-Xa Level ABG pH POC ABG pO2 ABG pO2 ABG HCO3 ABG O2 Saturation ABG Base Excess POC ABG pCO2 ABG Hemoglobin ABG Oxyhemoglobin ABG Glucose Oxyhemoglobin Sodium Potassium Chloride Carbon Dioxide BUN Creatinine Glucose POC Glucose 133 H 128 H 129 H Lactic Acid Calcium Phosphorus Magnesium AST ALT Lactate Dehydrogenase CK-MB (CK-2) C-Reactive Protein NT-Pro-B Natriuret Pep Total Protein Albumin Arterial Blood Glucose Urine WBC (Auto) 12/19/19 12/19/19 12/19/19 04:45 04:45 05:35 WBC RBC Hgb Hct MCHC RDW MCV MCH Lymph % (Auto) [place] % (Auto) [place] # Eos # Lymph # (Auto) [place] # (Auto) Eos # (Auto) Seg Neutrophils % Seg Neuts % (Manual) Baso # (Auto) Lymphocytes % (Manual) Monocytes % (Manual) Eosinophils % (Manual) Basophils % (Manual) Seg Neutrophils # Seg Neutrophils # Man Lymphocytes # (Manual) Monocytes # (Manual) Eosinophils # (Manual) Nucleated RBC % Basophils # (Manual) PT INR APTT Heparin Anti-Xa Level 0.17 L ABG pH POC ABG pO2 ABG pO2 ABG HCO3 ABG O2 Saturation ABG Base Excess POC ABG pCO2 ABG Hemoglobin ABG Oxyhemoglobin ABG Glucose Oxyhemoglobin Sodium Potassium Chloride Carbon Dioxide BUN Creatinine Glucose POC Glucose 120 H Lactic Acid Calcium Phosphorus Magnesium AST ALT Lactate Dehydrogenase 228 H CK-MB (CK-2) C-Reactive Protein NT-Pro-B Natriuret Pep Total Protein Albumin Arterial Blood Glucose Urine WBC (Auto) 12/19/19 12/19/19 12/19/19 09:20 11:32 11:32 WBC 14.6 H RBC 3.08 L Hgb 9.0 L Hct 26.8 L MCHC RDW 15.9 H MCV MCH Lymph % (Auto) [place] % (Auto) [place] # Eos # Lymph # (Auto) [place] # (Auto) Eos # (Auto) Seg Neutrophils % Seg Neuts % (Manual) 82.0 H Baso # (Auto) Lymphocytes % (Manual) 10.0 L Monocytes % (Manual) Eosinophils % (Manual) Basophils % (Manual) Seg Neutrophils # Seg Neutrophils # Man 12.0 H Lymphocytes # (Manual) Monocytes # (Manual) 0.9 H Eosinophils # (Manual) Nucleated RBC % 1.0 H Basophils # (Manual) PT INR APTT Heparin Anti-Xa Level ABG pH 7.451 H POC ABG pO2 ABG pO2 62.6 L ABG HCO3 33.2 H ABG O2 Saturation 93.8 L ABG Base Excess 8.3 H POC ABG pCO2 ABG Hemoglobin 8.3 L ABG Oxyhemoglobin ABG Glucose Oxyhemoglobin 91.9 L Sodium Potassium Chloride 95.0 L Carbon Dioxide 33 H BUN 22 H Creatinine 0.6 L Glucose 150 H POC Glucose Lactic Acid Calcium Phosphorus Magnesium AST ALT Lactate Dehydrogenase CK-MB (CK-2) C-Reactive Protein NT-Pro-B Natriuret Pep Total Protein 6.2 L Albumin 2.4 L Arterial Blood Glucose Urine WBC (Auto) 12/19/19 12/19/19 12/20/19 11:56 18:17 00:09 WBC RBC Hgb Hct MCHC RDW MCV MCH Lymph % (Auto) [place] % (Auto) [place] # Eos # Lymph # (Auto) [place] # (Auto) Eos # (Auto) Seg Neutrophils % Seg Neuts % (Manual) Baso # (Auto) Lymphocytes % (Manual) Monocytes % (Manual) Eosinophils % (Manual) Basophils % (Manual) Seg Neutrophils # Seg Neutrophils # Man Lymphocytes # (Manual) Monocytes # (Manual) Eosinophils # (Manual) Nucleated RBC % Basophils # (Manual) PT INR APTT Heparin Anti-Xa Level ABG pH POC ABG pO2 ABG pO2 ABG HCO3 ABG O2 Saturation ABG Base Excess POC ABG pCO2 ABG Hemoglobin ABG Oxyhemoglobin ABG Glucose Oxyhemoglobin Sodium Potassium Chloride Carbon Dioxide BUN Creatinine Glucose POC Glucose 156 H 156 H 155 H Lactic Acid Calcium Phosphorus Magnesium AST ALT Lactate Dehydrogenase CK-MB (CK-2) C-Reactive Protein NT-Pro-B Natriuret Pep Total Protein Albumin Arterial Blood Glucose Urine WBC (Auto) 12/20/19 12/20/19 12/20/19 05:26 06:02 18:17 WBC RBC Hgb Hct MCHC RDW MCV MCH Lymph % (Auto) [place] % (Auto) [place] # Eos # Lymph # (Auto) [place] # (Auto) Eos # (Auto) Seg Neutrophils % Seg Neuts % (Manual) Baso # (Auto) Lymphocytes % (Manual) Monocytes % (Manual) Eosinophils % (Manual) Basophils % (Manual) Seg Neutrophils # Seg Neutrophils # Man Lymphocytes # (Manual) Monocytes # (Manual) Eosinophils # (Manual) Nucleated RBC % Basophils # (Manual) PT INR APTT Heparin Anti-Xa Level 0.19 L ABG pH POC ABG pO2 ABG pO2 ABG HCO3 ABG O2 Saturation ABG Base Excess POC ABG pCO2 ABG Hemoglobin ABG Oxyhemoglobin ABG Glucose Oxyhemoglobin Sodium Potassium Chloride Carbon Dioxide BUN Creatinine Glucose POC Glucose 137 H 128 H Lactic Acid Calcium Phosphorus Magnesium AST ALT Lactate Dehydrogenase CK-MB (CK-2) C-Reactive Protein NT-Pro-B Natriuret Pep Total Protein Albumin Arterial Blood Glucose Urine WBC (Auto) 12/20/19 12/21/19 12/21/19 23:34 05:31 05:31 WBC 12.7 H RBC 3.09 L Hgb 8.9 L Hct 27.4 L MCHC RDW 15.8 H MCV MCH Lymph % (Auto) 12.1 L [place] % (Auto) 7.8 H [place] # Eos # Lymph # (Auto) [place] # (Auto) 1.0 H Eos # (Auto) Seg Neutrophils % 77.1 H Seg Neuts % (Manual) Baso # (Auto) Lymphocytes % (Manual) Monocytes % (Manual) Eosinophils % (Manual) Basophils % (Manual) Seg Neutrophils # 9.8 H Seg Neutrophils # Man Lymphocytes # (Manual) Monocytes # (Manual) Eosinophils # (Manual) Nucleated RBC % Basophils # (Manual) PT INR APTT Heparin Anti-Xa Level ABG pH POC ABG pO2 ABG pO2 ABG HCO3 ABG O2 Saturation ABG Base Excess POC ABG pCO2 ABG Hemoglobin ABG Oxyhemoglobin ABG Glucose Oxyhemoglobin Sodium Potassium Chloride 96.9 L Carbon Dioxide 37 H BUN 27 H Creatinine 0.7 L Glucose 140 H POC Glucose 145 H Lactic Acid Calcium Phosphorus Magnesium AST ALT Lactate Dehydrogenase CK-MB (CK-2) C-Reactive Protein NT-Pro-B Natriuret Pep Total Protein Albumin Arterial Blood Glucose Urine WBC (Auto) 12/21/19 12/21/19 12/21/19 05:38 10:13 11:51 WBC RBC Hgb Hct MCHC RDW MCV MCH Lymph % (Auto) [place] % (Auto) [place] # Eos # Lymph # (Auto) [place] # (Auto) Eos # (Auto) Seg Neutrophils % Seg Neuts % (Manual) Baso # (Auto) Lymphocytes % (Manual) Monocytes % (Manual) Eosinophils % (Manual) Basophils % (Manual) Seg Neutrophils # Seg Neutrophils # Man Lymphocytes # (Manual) Monocytes # (Manual) Eosinophils # (Manual) Nucleated RBC % Basophils # (Manual) PT INR APTT 23.9 L Heparin Anti-Xa Level < 0.10 L ABG pH POC ABG pO2 ABG pO2 ABG HCO3 ABG O2 Saturation ABG Base Excess POC ABG pCO2 ABG Hemoglobin ABG Oxyhemoglobin ABG Glucose Oxyhemoglobin Sodium Potassium Chloride Carbon Dioxide BUN Creatinine Glucose POC Glucose 151 H 145 H Lactic Acid Calcium Phosphorus Magnesium AST ALT Lactate Dehydrogenase CK-MB (CK-2) C-Reactive Protein NT-Pro-B Natriuret Pep Total Protein Albumin Arterial Blood Glucose Urine WBC (Auto) 12/21/19 12/22/19 12/22/19 17:16 00:01 01:33 WBC RBC Hgb Hct MCHC RDW MCV MCH Lymph % (Auto) [place] % (Auto) [place] # Eos # Lymph # (Auto) [place] # (Auto) Eos # (Auto) Seg Neutrophils % Seg Neuts % (Manual) Baso # (Auto) Lymphocytes % (Manual) Monocytes % (Manual) Eosinophils % (Manual) Basophils % (Manual) Seg Neutrophils # Seg Neutrophils # Man Lymphocytes # (Manual) Monocytes # (Manual) Eosinophils # (Manual) Nucleated RBC % Basophils # (Manual) PT INR APTT Heparin Anti-Xa Level 0.10 L ABG pH POC ABG pO2 ABG pO2 ABG HCO3 ABG O2 Saturation ABG Base Excess POC ABG pCO2 ABG Hemoglobin ABG Oxyhemoglobin ABG Glucose Oxyhemoglobin Sodium Potassium Chloride Carbon Dioxide BUN Creatinine Glucose POC Glucose 167 H 179 H Lactic Acid Calcium Phosphorus Magnesium AST ALT Lactate Dehydrogenase CK-MB (CK-2) C-Reactive Protein NT-Pro-B Natriuret Pep Total Protein Albumin Arterial Blood Glucose Urine WBC (Auto) 12/22/19 12/22/19 12/22/19 03:22 05:10 05:10 WBC 13.8 H RBC 3.20 L Hgb 8.9 L Hct 28.1 L MCHC RDW 15.9 H MCV MCH Lymph % (Auto) [place] % (Auto) [place] # Eos # Lymph # (Auto) [place] # (Auto) Eos # (Auto) Seg Neutrophils % Seg Neuts % (Manual) Baso # (Auto) Lymphocytes % (Manual) Monocytes % (Manual) Eosinophils % (Manual) Basophils % (Manual) Seg Neutrophils # Seg Neutrophils # Man Lymphocytes # (Manual) Monocytes # (Manual) Eosinophils # (Manual) Nucleated RBC % Basophils # (Manual) PT INR APTT Heparin Anti-Xa Level ABG pH POC ABG pO2 52.3 L ABG pO2 ABG HCO3 ABG O2 Saturation ABG Base Excess POC ABG pCO2 52.9 H ABG Hemoglobin 10.7 L ABG Oxyhemoglobin 84 L ABG Glucose Oxyhemoglobin Sodium Potassium Chloride 96.6 L Carbon Dioxide BUN 25 H Creatinine 0.7 L Glucose 129 H POC Glucose Lactic Acid Calcium Phosphorus Magnesium AST ALT Lactate Dehydrogenase CK-MB (CK-2) C-Reactive Protein NT-Pro-B Natriuret Pep Total Protein Albumin Arterial Blood Glucose Urine WBC (Auto) 12/22/19 12/22/19 12/22/19 05:18 12:32 12:43 WBC RBC Hgb Hct MCHC RDW MCV MCH Lymph % (Auto) [place] % (Auto) [place] # Eos # Lymph # (Auto) [place] # (Auto) Eos # (Auto) Seg Neutrophils % Seg Neuts % (Manual) Baso # (Auto) Lymphocytes % (Manual) Monocytes % (Manual) Eosinophils % (Manual) Basophils % (Manual) Seg Neutrophils # Seg Neutrophils # Man Lymphocytes # (Manual) Monocytes # (Manual) Eosinophils # (Manual) Nucleated RBC % Basophils # (Manual) PT INR APTT Heparin Anti-Xa Level 0.18 L ABG pH POC ABG pO2 ABG pO2 ABG HCO3 ABG O2 Saturation ABG Base Excess POC ABG pCO2 ABG Hemoglobin ABG Oxyhemoglobin ABG Glucose Oxyhemoglobin Sodium Potassium Chloride Carbon Dioxide BUN Creatinine Glucose POC Glucose 131 H 208 H Lactic Acid Calcium Phosphorus Magnesium AST ALT Lactate Dehydrogenase CK-MB (CK-2) C-Reactive Protein NT-Pro-B Natriuret Pep Total Protein Albumin Arterial Blood Glucose Urine WBC (Auto) 12/22/19 12/22/19 12/23/19 17:44 23:20 03:51 WBC 15.2 H RBC 3.43 L Hgb 9.6 L Hct 30.3 L MCHC RDW 15.9 H MCV MCH Lymph % (Auto) [place] % (Auto) [place] # Eos # Lymph # (Auto) [place] # (Auto) Eos # (Auto) Seg Neutrophils % Seg Neuts % (Manual) Baso # (Auto) Lymphocytes % (Manual) Monocytes % (Manual) Eosinophils % (Manual) Basophils % (Manual) Seg Neutrophils # Seg Neutrophils # Man Lymphocytes # (Manual) Monocytes # (Manual) Eosinophils # (Manual) Nucleated RBC % Basophils # (Manual) PT INR APTT Heparin Anti-Xa Level ABG pH POC ABG pO2 ABG pO2 ABG HCO3 ABG O2 Saturation ABG Base Excess POC ABG pCO2 ABG Hemoglobin ABG Oxyhemoglobin ABG Glucose Oxyhemoglobin Sodium Potassium Chloride Carbon Dioxide BUN Creatinine Glucose POC Glucose 209 H 119 H Lactic Acid Calcium Phosphorus Magnesium AST ALT Lactate Dehydrogenase CK-MB (CK-2) C-Reactive Protein NT-Pro-B Natriuret Pep Total Protein Albumin Arterial Blood Glucose Urine WBC (Auto) 12/23/19 12/23/19 12/23/19 03:51 05:31 12:09 WBC RBC Hgb Hct MCHC RDW MCV MCH Lymph % (Auto) [place] % (Auto) [place] # Eos # Lymph # (Auto) [place] # (Auto) Eos # (Auto) Seg Neutrophils % Seg Neuts % (Manual) Baso # (Auto) Lymphocytes % (Manual) Monocytes % (Manual) Eosinophils % (Manual) Basophils % (Manual) Seg Neutrophils # Seg Neutrophils # Man Lymphocytes # (Manual) Monocytes # (Manual) Eosinophils # (Manual) Nucleated RBC % Basophils # (Manual) PT INR APTT Heparin Anti-Xa Level ABG pH POC ABG pO2 ABG pO2 ABG HCO3 ABG O2 Saturation ABG Base Excess POC ABG pCO2 ABG Hemoglobin ABG Oxyhemoglobin ABG Glucose Oxyhemoglobin Sodium Potassium Chloride 97.2 L Carbon Dioxide 31 H BUN 23 H Creatinine 0.6 L Glucose 153 H POC Glucose 149 H 144 H Lactic Acid Calcium Phosphorus Magnesium AST ALT Lactate Dehydrogenase CK-MB (CK-2) C-Reactive Protein NT-Pro-B Natriuret Pep Total Protein Albumin Arterial Blood Glucose Urine WBC (Auto) 12/23/19 12/23/19 12/23/19 15:30 17:49 23:31 WBC RBC Hgb Hct MCHC RDW MCV MCH Lymph % (Auto) [place] % (Auto) [place] # Eos # Lymph # (Auto) [place] # (Auto) Eos # (Auto) Seg Neutrophils % Seg Neuts % (Manual) Baso # (Auto) Lymphocytes % (Manual) Monocytes % (Manual) Eosinophils % (Manual) Basophils % (Manual) Seg Neutrophils # Seg Neutrophils # Man Lymphocytes # (Manual) Monocytes # (Manual) Eosinophils # (Manual) Nucleated RBC % Basophils # (Manual) PT INR APTT Heparin Anti-Xa Level 0.21 L ABG pH POC ABG pO2 ABG pO2 ABG HCO3 ABG O2 Saturation ABG Base Excess POC ABG pCO2 ABG Hemoglobin ABG Oxyhemoglobin ABG Glucose Oxyhemoglobin Sodium Potassium Chloride Carbon Dioxide BUN Creatinine Glucose POC Glucose 192 H 151 H Lactic Acid Calcium Phosphorus Magnesium AST ALT Lactate Dehydrogenase CK-MB (CK-2) C-Reactive Protein NT-Pro-B Natriuret Pep Total Protein Albumin Arterial Blood Glucose Urine WBC (Auto) 12/24/19 12/24/19 12/24/19 05:34 12:13 16:50 WBC RBC Hgb Hct MCHC RDW MCV MCH Lymph % (Auto) [place] % (Auto) [place] # Eos # Lymph # (Auto) [place] # (Auto) Eos # (Auto) Seg Neutrophils % Seg Neuts % (Manual) Baso # (Auto) Lymphocytes % (Manual) Monocytes % (Manual) Eosinophils % (Manual) Basophils % (Manual) Seg Neutrophils # Seg Neutrophils # Man Lymphocytes # (Manual) Monocytes # (Manual) Eosinophils # (Manual) Nucleated RBC % Basophils # (Manual) PT INR APTT Heparin Anti-Xa Level 0.16 L ABG pH POC ABG pO2 ABG pO2 ABG HCO3 ABG O2 Saturation ABG Base Excess POC ABG pCO2 ABG Hemoglobin ABG Oxyhemoglobin ABG Glucose Oxyhemoglobin Sodium Potassium Chloride Carbon Dioxide BUN Creatinine Glucose POC Glucose 145 H 124 H Lactic Acid Calcium Phosphorus Magnesium AST ALT Lactate Dehydrogenase CK-MB (CK-2) C-Reactive Protein NT-Pro-B Natriuret Pep Total Protein Albumin Arterial Blood Glucose Urine WBC (Auto) 12/24/19 12/25/19 12/25/19 17:53 00:14 04:18 WBC 12.9 H RBC 3.30 L Hgb 9.1 L Hct 28.8 L MCHC RDW 16.4 H MCV MCH Lymph % (Auto) [place] % (Auto) 7.8 H [place] # Eos # Lymph # (Auto) [place] # (Auto) 1.0 H Eos # (Auto) Seg Neutrophils % 75.5 H Seg Neuts % (Manual) Baso # (Auto) Lymphocytes % (Manual) Monocytes % (Manual) Eosinophils % (Manual) Basophils % (Manual) Seg Neutrophils # 9.7 H Seg Neutrophils # Man Lymphocytes # (Manual) Monocytes # (Manual) Eosinophils # (Manual) Nucleated RBC % Basophils # (Manual) PT INR APTT Heparin Anti-Xa Level ABG pH POC ABG pO2 ABG pO2 ABG HCO3 ABG O2 Saturation ABG Base Excess POC ABG pCO2 ABG Hemoglobin ABG Oxyhemoglobin ABG Glucose Oxyhemoglobin Sodium Potassium Chloride Carbon Dioxide BUN Creatinine Glucose POC Glucose 164 H 148 H Lactic Acid Calcium Phosphorus Magnesium AST ALT Lactate Dehydrogenase CK-MB (CK-2) C-Reactive Protein NT-Pro-B Natriuret Pep Total Protein Albumin Arterial Blood Glucose Urine WBC (Auto) 12/25/19 12/25/19 12/25/19 04:18 05:38 11:44 WBC RBC Hgb Hct MCHC RDW MCV MCH Lymph % (Auto) [place] % (Auto) [place] # Eos # Lymph # (Auto) [place] # (Auto) Eos # (Auto) Seg Neutrophils % Seg Neuts % (Manual) Baso # (Auto) Lymphocytes % (Manual) Monocytes % (Manual) Eosinophils % (Manual) Basophils % (Manual) Seg Neutrophils # Seg Neutrophils # Man Lymphocytes # (Manual) Monocytes # (Manual) Eosinophils # (Manual) Nucleated RBC % Basophils # (Manual) PT INR APTT Heparin Anti-Xa Level ABG pH POC ABG pO2 ABG pO2 ABG HCO3 ABG O2 Saturation ABG Base Excess POC ABG pCO2 ABG Hemoglobin ABG Oxyhemoglobin ABG Glucose Oxyhemoglobin Sodium Potassium Chloride Carbon Dioxide 33 H BUN 27 H Creatinine 0.6 L Glucose 132 H POC Glucose 152 H 166 H Lactic Acid Calcium Phosphorus Magnesium AST ALT Lactate Dehydrogenase CK-MB (CK-2) C-Reactive Protein NT-Pro-B Natriuret Pep Total Protein Albumin Arterial Blood Glucose Urine WBC (Auto) 12/25/19 12/26/19 12/26/19 18:29 00:17 00:18 WBC RBC Hgb Hct MCHC RDW MCV MCH Lymph % (Auto) [place] % (Auto) [place] # Eos # Lymph # (Auto) [place] # (Auto) Eos # (Auto) Seg Neutrophils % Seg Neuts % (Manual) Baso # (Auto) Lymphocytes % (Manual) Monocytes % (Manual) Eosinophils % (Manual) Basophils % (Manual) Seg Neutrophils # Seg Neutrophils # Man Lymphocytes # (Manual) Monocytes # (Manual) Eosinophils # (Manual) Nucleated RBC % Basophils # (Manual) PT INR APTT Heparin Anti-Xa Level ABG pH POC ABG pO2 ABG pO2 ABG HCO3 ABG O2 Saturation ABG Base Excess POC ABG pCO2 ABG Hemoglobin ABG Oxyhemoglobin ABG Glucose Oxyhemoglobin Sodium Potassium Chloride 97.8 L Carbon Dioxide BUN 25 H Creatinine 0.6 L Glucose 140 H POC Glucose 194 H 151 H Lactic Acid Calcium Phosphorus Magnesium AST ALT Lactate Dehydrogenase CK-MB (CK-2) C-Reactive Protein NT-Pro-B Natriuret Pep Total Protein Albumin Arterial Blood Glucose Urine WBC (Auto) 12/26/19 12/26/19 12/26/19 05:36 11:41 17:50 WBC RBC Hgb Hct MCHC RDW MCV MCH Lymph % (Auto) [place] % (Auto) [place] # Eos # Lymph # (Auto) [place] # (Auto) Eos # (Auto) Seg Neutrophils % Seg Neuts % (Manual) Baso # (Auto) Lymphocytes % (Manual) Monocytes % (Manual) Eosinophils % (Manual) Basophils % (Manual) Seg Neutrophils # Seg Neutrophils # Man Lymphocytes # (Manual) Monocytes # (Manual) Eosinophils # (Manual) Nucleated RBC % Basophils # (Manual) PT INR APTT Heparin Anti-Xa Level ABG pH POC ABG pO2 ABG pO2 ABG HCO3 ABG O2 Saturation ABG Base Excess POC ABG pCO2 ABG Hemoglobin ABG Oxyhemoglobin ABG Glucose Oxyhemoglobin Sodium Potassium Chloride Carbon Dioxide BUN Creatinine Glucose POC Glucose 156 H 148 H 139 H Lactic Acid Calcium Phosphorus Magnesium AST ALT Lactate Dehydrogenase CK-MB (CK-2) C-Reactive Protein NT-Pro-B Natriuret Pep Total Protein Albumin Arterial Blood Glucose Urine WBC (Auto) 12/26/19 12/27/19 12/27/19 23:19 05:34 12:02 WBC RBC Hgb Hct MCHC RDW MCV MCH Lymph % (Auto) [place] % (Auto) [place] # Eos # Lymph # (Auto) [place] # (Auto) Eos # (Auto) Seg Neutrophils % Seg Neuts % (Manual) Baso # (Auto) Lymphocytes % (Manual) Monocytes % (Manual) Eosinophils % (Manual) Basophils % (Manual) Seg Neutrophils # Seg Neutrophils # Man Lymphocytes # (Manual) Monocytes # (Manual) Eosinophils # (Manual) Nucleated RBC % Basophils # (Manual) PT INR APTT Heparin Anti-Xa Level ABG pH POC ABG pO2 ABG pO2 ABG HCO3 ABG O2 Saturation ABG Base Excess POC ABG pCO2 ABG Hemoglobin ABG Oxyhemoglobin ABG Glucose Oxyhemoglobin Sodium Potassium Chloride Carbon Dioxide BUN Creatinine Glucose POC Glucose 161 H 145 H 157 H Lactic Acid Calcium Phosphorus Magnesium AST ALT Lactate Dehydrogenase CK-MB (CK-2) C-Reactive Protein NT-Pro-B Natriuret Pep Total Protein Albumin Arterial Blood Glucose Urine WBC (Auto) 12/27/19 12/27/19 12/27/19 17:35 20:11 23:00 WBC RBC Hgb Hct MCHC RDW MCV MCH Lymph % (Auto) [place] % (Auto) [place] # Eos # Lymph # (Auto) [place] # (Auto) Eos # (Auto) Seg Neutrophils % Seg Neuts % (Manual) Baso # (Auto) Lymphocytes % (Manual) Monocytes % (Manual) Eosinophils % (Manual) Basophils % (Manual) Seg Neutrophils # Seg Neutrophils # Man Lymphocytes # (Manual) Monocytes # (Manual) Eosinophils # (Manual) Nucleated RBC % Basophils # (Manual) PT INR APTT Heparin Anti-Xa Level 0.19 L ABG pH POC ABG pO2 ABG pO2 ABG HCO3 ABG O2 Saturation ABG Base Excess POC ABG pCO2 ABG Hemoglobin ABG Oxyhemoglobin ABG Glucose Oxyhemoglobin Sodium Potassium Chloride Carbon Dioxide BUN Creatinine Glucose POC Glucose 158 H 155 H Lactic Acid Calcium Phosphorus Magnesium AST ALT Lactate Dehydrogenase CK-MB (CK-2) C-Reactive Protein NT-Pro-B Natriuret Pep Total Protein Albumin Arterial Blood Glucose Urine WBC (Auto) 12/27/19 12/28/19 12/28/19 23:45 02:41 02:41 WBC 13.0 H RBC 3.48 L Hgb 9.5 L Hct 30.6 L MCHC 31 L RDW 16.6 H MCV MCH 27 L Lymph % (Auto) 13.0 L [place] % (Auto) 8.0 H [place] # Eos # Lymph # (Auto) [place] # (Auto) 1.0 H Eos # (Auto) Seg Neutrophils % 76.3 H Seg Neuts % (Manual) Baso # (Auto) Lymphocytes % (Manual) Monocytes % (Manual) Eosinophils % (Manual) Basophils % (Manual) Seg Neutrophils # 9.9 H Seg Neutrophils # Man Lymphocytes # (Manual) Monocytes # (Manual) Eosinophils # (Manual) Nucleated RBC % Basophils # (Manual) PT INR APTT Heparin Anti-Xa Level ABG pH POC ABG pO2 ABG pO2 ABG HCO3 ABG O2 Saturation ABG Base Excess POC ABG pCO2 ABG Hemoglobin ABG Oxyhemoglobin ABG Glucose Oxyhemoglobin Sodium Potassium Chloride Carbon Dioxide BUN 22 H Creatinine 0.6 L Glucose 101 H POC Glucose 130 H Lactic Acid Calcium Phosphorus Magnesium AST ALT Lactate Dehydrogenase CK-MB (CK-2) C-Reactive Protein NT-Pro-B Natriuret Pep Total Protein Albumin Arterial Blood Glucose Urine WBC (Auto) 12/28/19 12/28/19 12/28/19 06:00 12:34 18:13 WBC RBC Hgb Hct MCHC RDW MCV MCH Lymph % (Auto) [place] % (Auto) [place] # Eos # Lymph # (Auto) [place] # (Auto) Eos # (Auto) Seg Neutrophils % Seg Neuts % (Manual) Baso # (Auto) Lymphocytes % (Manual) Monocytes % (Manual) Eosinophils % (Manual) Basophils % (Manual) Seg Neutrophils # Seg Neutrophils # Man Lymphocytes # (Manual) Monocytes # (Manual) Eosinophils # (Manual) Nucleated RBC % Basophils # (Manual) PT INR APTT Heparin Anti-Xa Level ABG pH POC ABG pO2 ABG pO2 ABG HCO3 ABG O2 Saturation ABG Base Excess POC ABG pCO2 ABG Hemoglobin ABG Oxyhemoglobin ABG Glucose Oxyhemoglobin Sodium Potassium Chloride Carbon Dioxide BUN Creatinine Glucose POC Glucose 150 H 161 H 128 H Lactic Acid Calcium Phosphorus Magnesium AST ALT Lactate Dehydrogenase CK-MB (CK-2) C-Reactive Protein NT-Pro-B Natriuret Pep Total Protein Albumin Arterial Blood Glucose Urine WBC (Auto) 12/28/19 12/29/19 12/29/19 23:36 05:21 11:40 WBC RBC Hgb Hct MCHC RDW MCV MCH Lymph % (Auto) [place] % (Auto) [place] # Eos # Lymph # (Auto) [place] # (Auto) Eos # (Auto) Seg Neutrophils % Seg Neuts % (Manual) Baso # (Auto) Lymphocytes % (Manual) Monocytes % (Manual) Eosinophils % (Manual) Basophils % (Manual) Seg Neutrophils # Seg Neutrophils # Man Lymphocytes # (Manual) Monocytes # (Manual) Eosinophils # (Manual) Nucleated RBC % Basophils # (Manual) PT INR APTT Heparin Anti-Xa Level ABG pH POC ABG pO2 ABG pO2 ABG HCO3 ABG O2 Saturation ABG Base Excess POC ABG pCO2 ABG Hemoglobin ABG Oxyhemoglobin ABG Glucose Oxyhemoglobin Sodium Potassium Chloride Carbon Dioxide BUN Creatinine Glucose POC Glucose 137 H 136 H 166 H Lactic Acid Calcium Phosphorus Magnesium AST ALT Lactate Dehydrogenase CK-MB (CK-2) C-Reactive Protein NT-Pro-B Natriuret Pep Total Protein Albumin Arterial Blood Glucose Urine WBC (Auto) 12/29/19 12/29/19 12/29/19 17:23 19:21 23:38 WBC RBC Hgb Hct MCHC RDW MCV MCH Lymph % (Auto) [place] % (Auto) [place] # Eos # Lymph # (Auto) [place] # (Auto) Eos # (Auto) Seg Neutrophils % Seg Neuts % (Manual) Baso # (Auto) Lymphocytes % (Manual) Monocytes % (Manual) Eosinophils % (Manual) Basophils % (Manual) Seg Neutrophils # Seg Neutrophils # Man Lymphocytes # (Manual) Monocytes # (Manual) Eosinophils # (Manual) Nucleated RBC % Basophils # (Manual) PT INR APTT Heparin Anti-Xa Level 0.20 L ABG pH POC ABG pO2 ABG pO2 ABG HCO3 ABG O2 Saturation ABG Base Excess POC ABG pCO2 ABG Hemoglobin ABG Oxyhemoglobin ABG Glucose Oxyhemoglobin Sodium Potassium Chloride Carbon Dioxide BUN Creatinine Glucose POC Glucose 144 H 141 H Lactic Acid Calcium Phosphorus Magnesium AST ALT Lactate Dehydrogenase CK-MB (CK-2) C-Reactive Protein NT-Pro-B Natriuret Pep Total Protein Albumin Arterial Blood Glucose Urine WBC (Auto) 12/30/19 12/30/19 12/30/19 03:58 03:58 04:59 WBC RBC 3.54 L Hgb 9.8 L Hct 30.7 L MCHC RDW 16.8 H MCV MCH Lymph % (Auto) [place] % (Auto) [place] # Eos # Lymph # (Auto) [place] # (Auto) Eos # (Auto) Seg Neutrophils % Seg Neuts % (Manual) Baso # (Auto) Lymphocytes % (Manual) Monocytes % (Manual) Eosinophils % (Manual) Basophils % (Manual) Seg Neutrophils # Seg Neutrophils # Man Lymphocytes # (Manual) Monocytes # (Manual) Eosinophils # (Manual) Nucleated RBC % Basophils # (Manual) PT INR APTT Heparin Anti-Xa Level ABG pH POC ABG pO2 ABG pO2 ABG HCO3 29.8 H ABG O2 Saturation ABG Base Excess 4.8 H POC ABG pCO2 ABG Hemoglobin 11.2 L ABG Oxyhemoglobin ABG Glucose Oxyhemoglobin 93.8 L Sodium Potassium Chloride 97.8 L Carbon Dioxide BUN 26 H Creatinine Glucose 168 H POC Glucose Lactic Acid Calcium Phosphorus Magnesium AST ALT Lactate Dehydrogenase CK-MB (CK-2) C-Reactive Protein NT-Pro-B Natriuret Pep Total Protein Albumin Arterial Blood Glucose Urine WBC (Auto) 12/30/19 12/30/19 12/30/19 05:45 11:34 17:28 WBC RBC Hgb Hct MCHC RDW MCV MCH Lymph % (Auto) [place] % (Auto) [place] # Eos # Lymph # (Auto) [place] # (Auto) Eos # (Auto) Seg Neutrophils % Seg Neuts % (Manual) Baso # (Auto) Lymphocytes % (Manual) Monocytes % (Manual) Eosinophils % (Manual) Basophils % (Manual) Seg Neutrophils # Seg Neutrophils # Man Lymphocytes # (Manual) Monocytes # (Manual) Eosinophils # (Manual) Nucleated RBC % Basophils # (Manual) PT INR APTT Heparin Anti-Xa Level ABG pH POC ABG pO2 ABG pO2 ABG HCO3 ABG O2 Saturation ABG Base Excess POC ABG pCO2 ABG Hemoglobin ABG Oxyhemoglobin ABG Glucose Oxyhemoglobin Sodium Potassium Chloride Carbon Dioxide BUN Creatinine Glucose POC Glucose 163 H 180 H 150 H Lactic Acid Calcium Phosphorus Magnesium AST ALT Lactate Dehydrogenase CK-MB (CK-2) C-Reactive Protein NT-Pro-B Natriuret Pep Total Protein Albumin Arterial Blood Glucose Urine WBC (Auto) 12/30/19 12/31/19 12/31/19 23:43 04:55 05:07 WBC RBC Hgb Hct MCHC RDW MCV MCH Lymph % (Auto) [place] % (Auto) [place] # Eos # Lymph # (Auto) [place] # (Auto) Eos # (Auto) Seg Neutrophils % Seg Neuts % (Manual) Baso # (Auto) Lymphocytes % (Manual) Monocytes % (Manual) Eosinophils % (Manual) Basophils % (Manual) Seg Neutrophils # Seg Neutrophils # Man Lymphocytes # (Manual) Monocytes # (Manual) Eosinophils # (Manual) Nucleated RBC % Basophils # (Manual) PT INR APTT Heparin Anti-Xa Level ABG pH POC ABG pO2 ABG pO2 ABG HCO3 ABG O2 Saturation ABG Base Excess POC ABG pCO2 ABG Hemoglobin ABG Oxyhemoglobin ABG Glucose Oxyhemoglobin Sodium Potassium 5.6 H D Chloride Carbon Dioxide BUN 33 H Creatinine Glucose 131 H POC Glucose 142 H 134 H Lactic Acid Calcium Phosphorus Magnesium AST ALT Lactate Dehydrogenase CK-MB (CK-2) C-Reactive Protein NT-Pro-B Natriuret Pep Total Protein Albumin Arterial Blood Glucose Urine WBC (Auto) 12/31/19 12/31/19 12/31/19 11:30 17:19 17:36 WBC RBC Hgb Hct MCHC RDW MCV MCH Lymph % (Auto) [place] % (Auto) [place] # Eos # Lymph # (Auto) [place] # (Auto) Eos # (Auto) Seg Neutrophils % Seg Neuts % (Manual) Baso # (Auto) Lymphocytes % (Manual) Monocytes % (Manual) Eosinophils % (Manual) Basophils % (Manual) Seg Neutrophils # Seg Neutrophils # Man Lymphocytes # (Manual) Monocytes # (Manual) Eosinophils # (Manual) Nucleated RBC % Basophils # (Manual) PT INR APTT Heparin Anti-Xa Level ABG pH POC ABG pO2 ABG pO2 ABG HCO3 ABG O2 Saturation ABG Base Excess POC ABG pCO2 ABG Hemoglobin ABG Oxyhemoglobin ABG Glucose Oxyhemoglobin Sodium Potassium Chloride Carbon Dioxide BUN 35 H Creatinine Glucose 156 H POC Glucose 158 H 181 H Lactic Acid Calcium Phosphorus Magnesium AST ALT Lactate Dehydrogenase CK-MB (CK-2) C-Reactive Protein NT-Pro-B Natriuret Pep Total Protein Albumin Arterial Blood Glucose Urine WBC (Auto) 12/31/19 12/31/19 12/31/19 18:16 19:41 21:53 WBC RBC Hgb Hct MCHC RDW MCV MCH Lymph % (Auto) [place] % (Auto) [place] # Eos # Lymph # (Auto) [place] # (Auto) Eos # (Auto) Seg Neutrophils % Seg Neuts % (Manual) Baso # (Auto) Lymphocytes % (Manual) Monocytes % (Manual) Eosinophils % (Manual) Basophils % (Manual) Seg Neutrophils # Seg Neutrophils # Man Lymphocytes # (Manual) Monocytes # (Manual) Eosinophils # (Manual) Nucleated RBC % Basophils # (Manual) PT INR APTT Heparin Anti-Xa Level 0.20 L ABG pH POC ABG pO2 ABG pO2 ABG HCO3 ABG O2 Saturation ABG Base Excess POC ABG pCO2 ABG Hemoglobin ABG Oxyhemoglobin ABG Glucose Oxyhemoglobin Sodium Potassium Chloride Carbon Dioxide BUN 34 H Creatinine Glucose 169 H POC Glucose 141 H Lactic Acid Calcium Phosphorus Magnesium AST ALT Lactate Dehydrogenase CK-MB (CK-2) C-Reactive Protein NT-Pro-B Natriuret Pep Total Protein Albumin Arterial Blood Glucose Urine WBC (Auto) 12/31/19 01/01/20 01/01/20 23:51 05:17 10:40 WBC RBC Hgb Hct MCHC RDW MCV MCH Lymph % (Auto) [place] % (Auto) [place] # Eos # Lymph # (Auto) [place] # (Auto) Eos # (Auto) Seg Neutrophils % Seg Neuts % (Manual) Baso # (Auto) Lymphocytes % (Manual) Monocytes % (Manual) Eosinophils % (Manual) Basophils % (Manual) Seg Neutrophils # Seg Neutrophils # Man Lymphocytes # (Manual) Monocytes # (Manual) Eosinophils # (Manual) Nucleated RBC % Basophils # (Manual) PT INR APTT Heparin Anti-Xa Level ABG pH POC ABG pO2 ABG pO2 ABG HCO3 ABG O2 Saturation ABG Base Excess POC ABG pCO2 ABG Hemoglobin ABG Oxyhemoglobin ABG Glucose Oxyhemoglobin Sodium Potassium Chloride Carbon Dioxide BUN 31 H Creatinine 0.7 L Glucose 137 H POC Glucose 131 H 155 H Lactic Acid Calcium Phosphorus Magnesium AST 73 H ALT 97 H Lactate Dehydrogenase CK-MB (CK-2) C-Reactive Protein NT-Pro-B Natriuret Pep 3866 H Total Protein Albumin 2.8 L Arterial Blood Glucose Urine WBC (Auto) 01/01/20 01/01/20 01/01/20 12:26 15:33 17:53 WBC 14.3 H RBC 3.35 L Hgb 9.1 L Hct 28.8 L MCHC RDW 17.0 H MCV MCH 27 L Lymph % (Auto) 7.0 L [place] % (Auto) 7.6 H [place] # Eos # Lymph # (Auto) 1.0 L [place] # (Auto) 1.1 H Eos # (Auto) Seg Neutrophils % 83.3 H Seg Neuts % (Manual) Baso # (Auto) Lymphocytes % (Manual) Monocytes % (Manual) Eosinophils % (Manual) Basophils % (Manual) Seg Neutrophils # 12.0 H Seg Neutrophils # Man Lymphocytes # (Manual) Monocytes # (Manual) Eosinophils # (Manual) Nucleated RBC % Basophils # (Manual) PT INR APTT Heparin Anti-Xa Level ABG pH POC ABG pO2 ABG pO2 ABG HCO3 ABG O2 Saturation ABG Base Excess POC ABG pCO2 ABG Hemoglobin ABG Oxyhemoglobin ABG Glucose Oxyhemoglobin Sodium Potassium Chloride Carbon Dioxide BUN Creatinine Glucose POC Glucose 128 H 128 H Lactic Acid Calcium Phosphorus Magnesium AST ALT Lactate Dehydrogenase CK-MB (CK-2) C-Reactive Protein NT-Pro-B Natriuret Pep Total Protein Albumin Arterial Blood Glucose Urine WBC (Auto) 01/01/20 01/02/20 01/02/20 23:04 05:39 07:00 WBC RBC Hgb Hct MCHC RDW MCV MCH Lymph % (Auto) [place] % (Auto) [place] # Eos # Lymph # (Auto) [place] # (Auto) Eos # (Auto) Seg Neutrophils % Seg Neuts % (Manual) Baso # (Auto) Lymphocytes % (Manual) Monocytes % (Manual) Eosinophils % (Manual) Basophils % (Manual) Seg Neutrophils # Seg Neutrophils # Man Lymphocytes # (Manual) Monocytes # (Manual) Eosinophils # (Manual) Nucleated RBC % Basophils # (Manual) PT INR APTT Heparin Anti-Xa Level 0.13 L ABG pH POC ABG pO2 ABG pO2 ABG HCO3 ABG O2 Saturation ABG Base Excess POC ABG pCO2 ABG Hemoglobin ABG Oxyhemoglobin ABG Glucose Oxyhemoglobin Sodium Potassium Chloride Carbon Dioxide BUN Creatinine Glucose POC Glucose 120 H 169 H Lactic Acid Calcium Phosphorus Magnesium AST ALT Lactate Dehydrogenase CK-MB (CK-2) C-Reactive Protein NT-Pro-B Natriuret Pep Total Protein Albumin Arterial Blood Glucose Urine WBC (Auto) 01/02/20 01/02/20 01/02/20 12:15 14:06 17:58 WBC RBC Hgb Hct MCHC RDW MCV MCH Lymph % (Auto) [place] % (Auto) [place] # Eos # Lymph # (Auto) [place] # (Auto) Eos # (Auto) Seg Neutrophils % Seg Neuts % (Manual) Baso # (Auto) Lymphocytes % (Manual) Monocytes % (Manual) Eosinophils % (Manual) Basophils % (Manual) Seg Neutrophils # Seg Neutrophils # Man Lymphocytes # (Manual) Monocytes # (Manual) Eosinophils # (Manual) Nucleated RBC % Basophils # (Manual) PT INR APTT Heparin Anti-Xa Level < 0.10 L ABG pH POC ABG pO2 ABG pO2 ABG HCO3 ABG O2 Saturation ABG Base Excess POC ABG pCO2 ABG Hemoglobin ABG Oxyhemoglobin ABG Glucose Oxyhemoglobin Sodium Potassium Chloride Carbon Dioxide BUN Creatinine Glucose POC Glucose 190 H 198 H Lactic Acid Calcium Phosphorus Magnesium AST ALT Lactate Dehydrogenase CK-MB (CK-2) C-Reactive Protein NT-Pro-B Natriuret Pep Total Protein Albumin Arterial Blood Glucose Urine WBC (Auto) 01/02/20 01/02/20 01/03/20 21:43 23:33 05:42 WBC RBC Hgb Hct MCHC RDW MCV MCH Lymph % (Auto) [place] % (Auto) [place] # Eos # Lymph # (Auto) [place] # (Auto) Eos # (Auto) Seg Neutrophils % Seg Neuts % (Manual) Baso # (Auto) Lymphocytes % (Manual) Monocytes % (Manual) Eosinophils % (Manual) Basophils % (Manual) Seg Neutrophils # Seg Neutrophils # Man Lymphocytes # (Manual) Monocytes # (Manual) Eosinophils # (Manual) Nucleated RBC % Basophils # (Manual) PT INR APTT Heparin Anti-Xa Level 0.10 L ABG pH POC ABG pO2 ABG pO2 ABG HCO3 ABG O2 Saturation ABG Base Excess POC ABG pCO2 ABG Hemoglobin ABG Oxyhemoglobin ABG Glucose Oxyhemoglobin Sodium Potassium Chloride Carbon Dioxide BUN Creatinine Glucose POC Glucose 180 H 163 H Lactic Acid Calcium Phosphorus Magnesium AST ALT Lactate Dehydrogenase CK-MB (CK-2) C-Reactive Protein NT-Pro-B Natriuret Pep Total Protein Albumin Arterial Blood Glucose Urine WBC (Auto) 01/03/20 01/03/20 01/03/20 06:50 07:25 07:45 WBC 12.1 H RBC 3.35 L Hgb 9.0 L Hct 28.9 L MCHC 31 L RDW 16.6 H MCV MCH 27 L Lymph % (Auto) 13.0 L [place] % (Auto) 8.6 H [place] # Eos # Lymph # (Auto) [place] # (Auto) 1.0 H Eos # (Auto) Seg Neutrophils % 75.9 H Seg Neuts % (Manual) Baso # (Auto) Lymphocytes % (Manual) Monocytes % (Manual) Eosinophils % (Manual) Basophils % (Manual) Seg Neutrophils # 9.2 H Seg Neutrophils # Man Lymphocytes # (Manual) Monocytes # (Manual) Eosinophils # (Manual) Nucleated RBC % Basophils # (Manual) PT INR APTT Heparin Anti-Xa Level 0.29 L ABG pH POC ABG pO2 ABG pO2 ABG HCO3 ABG O2 Saturation ABG Base Excess POC ABG pCO2 ABG Hemoglobin ABG Oxyhemoglobin ABG Glucose Oxyhemoglobin Sodium Potassium 3.3 L D Chloride Carbon Dioxide 35 H D BUN 23 H Creatinine 0.6 L Glucose 149 H POC Glucose Lactic Acid Calcium Phosphorus Magnesium AST ALT 88 H Lactate Dehydrogenase CK-MB (CK-2) C-Reactive Protein NT-Pro-B Natriuret Pep Total Protein 6.2 L Albumin 2.9 L Arterial Blood Glucose Urine WBC (Auto) 01/03/20 01/03/20 01/03/20 12:05 17:42 18:30 WBC RBC Hgb Hct MCHC RDW MCV MCH Lymph % (Auto) [place] % (Auto) [place] # Eos # Lymph # (Auto) [place] # (Auto) Eos # (Auto) Seg Neutrophils % Seg Neuts % (Manual) Baso # (Auto) Lymphocytes % (Manual) Monocytes % (Manual) Eosinophils % (Manual) Basophils % (Manual) Seg Neutrophils # Seg Neutrophils # Man Lymphocytes # (Manual) Monocytes # (Manual) Eosinophils # (Manual) Nucleated RBC % Basophils # (Manual) PT INR APTT Heparin Anti-Xa Level ABG pH POC ABG pO2 ABG pO2 70.7 L ABG HCO3 36.1 H ABG O2 Saturation 94.4 L ABG Base Excess 10.0 H POC ABG pCO2 ABG Hemoglobin 9.7 L ABG Oxyhemoglobin ABG Glucose Oxyhemoglobin 91.8 L Sodium Potassium Chloride Carbon Dioxide BUN Creatinine Glucose POC Glucose 128 H 132 H Lactic Acid Calcium Phosphorus Magnesium AST ALT Lactate Dehydrogenase CK-MB (CK-2) C-Reactive Protein NT-Pro-B Natriuret Pep Total Protein Albumin Arterial Blood Glucose Urine WBC (Auto) 01/04/20 01/04/20 01/04/20 00:10 04:26 05:23 WBC RBC Hgb Hct MCHC RDW MCV MCH Lymph % (Auto) [place] % (Auto) [place] # Eos # Lymph # (Auto) [place] # (Auto) Eos # (Auto) Seg Neutrophils % Seg Neuts % (Manual) Baso # (Auto) Lymphocytes % (Manual) Monocytes % (Manual) Eosinophils % (Manual) Basophils % (Manual) Seg Neutrophils # Seg Neutrophils # Man Lymphocytes # (Manual) Monocytes # (Manual) Eosinophils # (Manual) Nucleated RBC % Basophils # (Manual) PT INR APTT Heparin Anti-Xa Level 0.16 L ABG pH POC ABG pO2 ABG pO2 ABG HCO3 ABG O2 Saturation ABG Base Excess POC ABG pCO2 ABG Hemoglobin ABG Oxyhemoglobin ABG Glucose Oxyhemoglobin Sodium Potassium Chloride Carbon Dioxide BUN Creatinine Glucose POC Glucose 121 H 119 H Lactic Acid Calcium Phosphorus Magnesium AST ALT Lactate Dehydrogenase CK-MB (CK-2) C-Reactive Protein NT-Pro-B Natriuret Pep Total Protein Albumin Arterial Blood Glucose Urine WBC (Auto) 01/04/20 01/04/20 01/04/20 09:50 09:50 12:18 WBC 15.4 H RBC 3.30 L Hgb 8.7 L Hct 28.2 L MCHC 31 L RDW 17.0 H MCV MCH 26 L Lymph % (Auto) [place] % (Auto) 7.6 H [place] # Eos # Lymph # (Auto) [place] # (Auto) 1.2 H Eos # (Auto) Seg Neutrophils % 75.4 H Seg Neuts % (Manual) Baso # (Auto) Lymphocytes % (Manual) Monocytes % (Manual) Eosinophils % (Manual) Basophils % (Manual) Seg Neutrophils # 11.6 H Seg Neutrophils # Man Lymphocytes # (Manual) Monocytes # (Manual) Eosinophils # (Manual) Nucleated RBC % Basophils # (Manual) PT INR APTT Heparin Anti-Xa Level ABG pH POC ABG pO2 ABG pO2 ABG HCO3 ABG O2 Saturation ABG Base Excess POC ABG pCO2 ABG Hemoglobin ABG Oxyhemoglobin ABG Glucose Oxyhemoglobin Sodium 148 H Potassium 3.5 L Chloride Carbon Dioxide 32 H BUN Creatinine 0.6 L Glucose 114 H POC Glucose 111 H Lactic Acid Calcium Phosphorus Magnesium AST ALT 59 H Lactate Dehydrogenase CK-MB (CK-2) C-Reactive Protein NT-Pro-B Natriuret Pep Total Protein Albumin 2.6 L Arterial Blood Glucose Urine WBC (Auto) 01/05/20 01/05/20 01/05/20 04:05 04:05 05:19 WBC 11.7 H RBC 3.50 L Hgb 9.3 L Hct 29.9 L MCHC 31 L RDW 16.6 H MCV MCH 27 L Lymph % (Auto) 13.1 L [place] % (Auto) 9.7 H [place] # Eos # Lymph # (Auto) [place] # (Auto) 1.1 H Eos # (Auto) Seg Neutrophils % 74.0 H Seg Neuts % (Manual) Baso # (Auto) Lymphocytes % (Manual) Monocytes % (Manual) Eosinophils % (Manual) Basophils % (Manual) Seg Neutrophils # 8.6 H Seg Neutrophils # Man Lymphocytes # (Manual) Monocytes # (Manual) Eosinophils # (Manual) Nucleated RBC % Basophils # (Manual) PT INR APTT Heparin Anti-Xa Level ABG pH POC ABG pO2 ABG pO2 ABG HCO3 ABG O2 Saturation ABG Base Excess POC ABG pCO2 ABG Hemoglobin ABG Oxyhemoglobin ABG Glucose Oxyhemoglobin Sodium 151 H Potassium Chloride Carbon Dioxide 34 H BUN Creatinine 0.7 L Glucose POC Glucose 112 H Lactic Acid Calcium Phosphorus Magnesium AST ALT 59 H Lactate Dehydrogenase CK-MB (CK-2) C-Reactive Protein NT-Pro-B Natriuret Pep Total Protein 5.8 L Albumin 2.6 L Arterial Blood Glucose Urine WBC (Auto) 01/05/20 01/06/20 01/06/20 16:04 00:23 04:44 WBC RBC 3.36 L Hgb 8.9 L Hct 28.7 L MCHC 31 L RDW 16.9 H MCV MCH 26 L Lymph % (Auto) [place] % (Auto) 9.4 H [place] # Eos # Lymph # (Auto) [place] # (Auto) Eos # (Auto) Seg Neutrophils % Seg Neuts % (Manual) Baso # (Auto) Lymphocytes % (Manual) Monocytes % (Manual) Eosinophils % (Manual) Basophils % (Manual) Seg Neutrophils # Seg Neutrophils # Man Lymphocytes # (Manual) Monocytes # (Manual) Eosinophils # (Manual) Nucleated RBC % Basophils # (Manual) PT INR APTT Heparin Anti-Xa Level ABG pH POC ABG pO2 ABG pO2 ABG HCO3 ABG O2 Saturation ABG Base Excess POC ABG pCO2 ABG Hemoglobin ABG Oxyhemoglobin ABG Glucose Oxyhemoglobin Sodium 151 H Potassium 3.2 L Chloride Carbon Dioxide 34 H BUN Creatinine 0.6 L Glucose POC Glucose 107 H Lactic Acid Calcium Phosphorus Magnesium AST ALT Lactate Dehydrogenase CK-MB (CK-2) C-Reactive Protein NT-Pro-B Natriuret Pep Total Protein Albumin Arterial Blood Glucose Urine WBC (Auto) 01/06/20 01/06/20 01/06/20 04:44 05:33 12:04 WBC RBC Hgb Hct MCHC RDW MCV MCH Lymph % (Auto) [place] % (Auto) [place] # Eos # Lymph # (Auto) [place] # (Auto) Eos # (Auto) Seg Neutrophils % Seg Neuts % (Manual) Baso # (Auto) Lymphocytes % (Manual) Monocytes % (Manual) Eosinophils % (Manual) Basophils % (Manual) Seg Neutrophils # Seg Neutrophils # Man Lymphocytes # (Manual) Monocytes # (Manual) Eosinophils # (Manual) Nucleated RBC % Basophils # (Manual) PT INR APTT Heparin Anti-Xa Level ABG pH POC ABG pO2 ABG pO2 ABG HCO3 ABG O2 Saturation ABG Base Excess POC ABG pCO2 ABG Hemoglobin ABG Oxyhemoglobin ABG Glucose Oxyhemoglobin Sodium 151 H Potassium 3.4 L Chloride Carbon Dioxide 33 H BUN Creatinine 0.6 L Glucose 118 H POC Glucose 118 H 123 H Lactic Acid Calcium Phosphorus Magnesium AST ALT Lactate Dehydrogenase CK-MB (CK-2) C-Reactive Protein NT-Pro-B Natriuret Pep Total Protein 6.2 L Albumin 2.6 L Arterial Blood Glucose Urine WBC (Auto) 01/06/20 01/07/20 01/07/20 17:54 00:06 04:10 WBC RBC 3.42 L Hgb 8.9 L Hct 29.0 L MCHC 31 L RDW 17.1 H MCV MCH 26 L Lymph % (Auto) [place] % (Auto) 8.4 H [place] # Eos # Lymph # (Auto) [place] # (Auto) Eos # (Auto) Seg Neutrophils % Seg Neuts % (Manual) Baso # (Auto) Lymphocytes % (Manual) Monocytes % (Manual) Eosinophils % (Manual) Basophils % (Manual) Seg Neutrophils # Seg Neutrophils # Man Lymphocytes # (Manual) Monocytes # (Manual) Eosinophils # (Manual) Nucleated RBC % Basophils # (Manual) PT INR APTT Heparin Anti-Xa Level ABG pH POC ABG pO2 ABG pO2 ABG HCO3 ABG O2 Saturation ABG Base Excess POC ABG pCO2 ABG Hemoglobin ABG Oxyhemoglobin ABG Glucose Oxyhemoglobin Sodium Potassium Chloride Carbon Dioxide BUN Creatinine Glucose POC Glucose 112 H 126 H Lactic Acid Calcium Phosphorus Magnesium AST ALT Lactate Dehydrogenase CK-MB (CK-2) C-Reactive Protein NT-Pro-B Natriuret Pep Total Protein Albumin Arterial Blood Glucose Urine WBC (Auto) 01/07/20 01/07/20 01/07/20 04:10 05:59 12:27 WBC RBC Hgb Hct MCHC RDW MCV MCH Lymph % (Auto) [place] % (Auto) [place] # Eos # Lymph # (Auto) [place] # (Auto) Eos # (Auto) Seg Neutrophils % Seg Neuts % (Manual) Baso # (Auto) Lymphocytes % (Manual) Monocytes % (Manual) Eosinophils % (Manual) Basophils % (Manual) Seg Neutrophils # Seg Neutrophils # Man Lymphocytes # (Manual) Monocytes # (Manual) Eosinophils # (Manual) Nucleated RBC % Basophils # (Manual) PT INR APTT Heparin Anti-Xa Level ABG pH POC ABG pO2 ABG pO2 ABG HCO3 ABG O2 Saturation ABG Base Excess POC ABG pCO2 ABG Hemoglobin ABG Oxyhemoglobin ABG Glucose Oxyhemoglobin Sodium 153 H Potassium 3.5 L Chloride Carbon Dioxide 34 H BUN Creatinine 0.6 L Glucose 121 H POC Glucose 121 H 126 H Lactic Acid Calcium Phosphorus Magnesium AST ALT Lactate Dehydrogenase CK-MB (CK-2) C-Reactive Protein NT-Pro-B Natriuret Pep Total Protein 5.9 L Albumin 2.4 L Arterial Blood Glucose Urine WBC (Auto) 01/07/20 01/08/20 01/08/20 18:12 00:03 05:41 WBC RBC Hgb Hct MCHC RDW MCV MCH Lymph % (Auto) [place] % (Auto) [place] # Eos # Lymph # (Auto) [place] # (Auto) Eos # (Auto) Seg Neutrophils % Seg Neuts % (Manual) Baso # (Auto) Lymphocytes % (Manual) Monocytes % (Manual) Eosinophils % (Manual) Basophils % (Manual) Seg Neutrophils # Seg Neutrophils # Man Lymphocytes # (Manual) Monocytes # (Manual) Eosinophils # (Manual) Nucleated RBC % Basophils # (Manual) PT INR APTT Heparin Anti-Xa Level ABG pH POC ABG pO2 ABG pO2 ABG HCO3 ABG O2 Saturation ABG Base Excess POC ABG pCO2 ABG Hemoglobin ABG Oxyhemoglobin ABG Glucose Oxyhemoglobin Sodium Potassium Chloride Carbon Dioxide BUN Creatinine Glucose POC Glucose 124 H 130 H 138 H Lactic Acid Calcium Phosphorus Magnesium AST ALT Lactate Dehydrogenase CK-MB (CK-2) C-Reactive Protein NT-Pro-B Natriuret Pep Total Protein Albumin Arterial Blood Glucose Urine WBC (Auto) 01/08/20 01/08/2020 09:28 11:42 18:21 WBC RBC Hgb Hct MCHC RDW MCV MCH Lymph % (Auto) [place] % (Auto) [place] # Eos # Lymph # (Auto) [place] # (Auto) Eos # (Auto) Seg Neutrophils % Seg Neuts % (Manual) Baso # (Auto) Lymphocytes % (Manual) Monocytes % (Manual) Eosinophils % (Manual) Basophils % (Manual) Seg Neutrophils # Seg Neutrophils # Man Lymphocytes # (Manual) Monocytes # (Manual) Eosinophils # (Manual) Nucleated RBC % Basophils # (Manual) PT INR APTT Heparin Anti-Xa Level ABG pH POC ABG pO2 ABG pO2 ABG HCO3 ABG O2 Saturation ABG Base Excess POC ABG pCO2 ABG Hemoglobin ABG Oxyhemoglobin ABG Glucose Oxyhemoglobin Sodium Potassium Chloride Carbon Dioxide BUN Creatinine Glucose POC Glucose 181 H 150 H 129 H Lactic Acid Calcium Phosphorus Magnesium AST ALT Lactate Dehydrogenase CK-MB (CK-2) C-Reactive Protein NT-Pro-B Natriuret Pep Total Protein Albumin Arterial Blood Glucose Urine WBC (Auto) 01/08/20 01/08/20 01/09/20 19:25 23:55 04:11 WBC RBC 3.43 L Hgb 8.9 L Hct 28.7 L MCHC 31 L RDW 17.6 H MCV MCH 26 L Lymph % (Auto) [place] % (Auto) 8.6 H [place] # Eos # Lymph # (Auto) [place] # (Auto) Eos # (Auto) Seg Neutrophils % Seg Neuts % (Manual) Baso # (Auto) Lymphocytes % (Manual) Monocytes % (Manual) Eosinophils % (Manual) Basophils % (Manual) Seg Neutrophils # Seg Neutrophils # Man Lymphocytes # (Manual) Monocytes # (Manual) Eosinophils # (Manual) Nucleated RBC % Basophils # (Manual) PT INR APTT Heparin Anti-Xa Level ABG pH POC ABG pO2 ABG pO2 ABG HCO3 ABG O2 Saturation ABG Base Excess POC ABG pCO2 ABG Hemoglobin ABG Oxyhemoglobin ABG Glucose Oxyhemoglobin Sodium Potassium Chloride Carbon Dioxide BUN Creatinine 0.7 L Glucose 117 H POC Glucose 132 H Lactic Acid Calcium Phosphorus Magnesium AST ALT Lactate Dehydrogenase CK-MB (CK-2) C-Reactive Protein NT-Pro-B Natriuret Pep Total Protein Albumin Arterial Blood Glucose Urine WBC (Auto) 01/09/20 01/09/20 01/09/20 04:11 05:38 22:58 WBC RBC Hgb Hct MCHC RDW MCV MCH Lymph % (Auto) [place] % (Auto) [place] # Eos # Lymph # (Auto) [place] # (Auto) Eos # (Auto) Seg Neutrophils % Seg Neuts % (Manual) Baso # (Auto) Lymphocytes % (Manual) Monocytes % (Manual) Eosinophils % (Manual) Basophils % (Manual) Seg Neutrophils # Seg Neutrophils # Man Lymphocytes # (Manual) Monocytes # (Manual) Eosinophils # (Manual) Nucleated RBC % Basophils # (Manual) PT INR APTT Heparin Anti-Xa Level ABG pH POC ABG pO2 ABG pO2 ABG HCO3 ABG O2 Saturation ABG Base Excess POC ABG pCO2 ABG Hemoglobin ABG Oxyhemoglobin ABG Glucose Oxyhemoglobin Sodium 147 H Potassium 3.3 L D Chloride Carbon Dioxide 32 H BUN Creatinine 0.6 L Glucose 106 H POC Glucose 107 H 113 H Lactic Acid Calcium Phosphorus Magnesium AST ALT Lactate Dehydrogenase CK-MB (CK-2) C-Reactive Protein NT-Pro-B Natriuret Pep Total Protein Albumin Arterial Blood Glucose Urine WBC (Auto) 01/10/20 01/10/20 01/10/20 04:05 11:36 17:54 WBC RBC Hgb Hct MCHC RDW MCV MCH Lymph % (Auto) [place] % (Auto) [place] # Eos # Lymph # (Auto) [place] # (Auto) Eos # (Auto) Seg Neutrophils % Seg Neuts % (Manual) Baso # (Auto) Lymphocytes % (Manual) Monocytes % (Manual) Eosinophils % (Manual) Basophils % (Manual) Seg Neutrophils # Seg Neutrophils # Man Lymphocytes # (Manual) Monocytes # (Manual) Eosinophils # (Manual) Nucleated RBC % Basophils # (Manual) PT INR APTT Heparin Anti-Xa Level ABG pH POC ABG pO2 ABG pO2 ABG HCO3 ABG O2 Saturation ABG Base Excess POC ABG pCO2 ABG Hemoglobin ABG Oxyhemoglobin ABG Glucose Oxyhemoglobin Sodium Potassium Chloride Carbon Dioxide BUN Creatinine 0.7 L Glucose 110 H POC Glucose 129 H 117 H Lactic Acid Calcium Phosphorus Magnesium AST ALT Lactate Dehydrogenase CK-MB (CK-2) C-Reactive Protein NT-Pro-B Natriuret Pep Total Protein Albumin Arterial Blood Glucose Urine WBC (Auto) 01/10/20 01/11/20 01/11/20 23:52 03:19 12:09 WBC RBC Hgb Hct MCHC RDW MCV MCH Lymph % (Auto) [place] % (Auto) [place] # Eos # Lymph # (Auto) [place] # (Auto) Eos # (Auto) Seg Neutrophils % Seg Neuts % (Manual) Baso # (Auto) Lymphocytes % (Manual) Monocytes % (Manual) Eosinophils % (Manual) Basophils % (Manual) Seg Neutrophils # Seg Neutrophils # Man Lymphocytes # (Manual) Monocytes # (Manual) Eosinophils # (Manual) Nucleated RBC % Basophils # (Manual) PT INR APTT Heparin Anti-Xa Level ABG pH POC ABG pO2 ABG pO2 ABG HCO3 ABG O2 Saturation ABG Base Excess POC ABG pCO2 ABG Hemoglobin ABG Oxyhemoglobin ABG Glucose Oxyhemoglobin Sodium Potassium Chloride Carbon Dioxide BUN Creatinine Glucose POC Glucose 117 H 136 H 115 H Lactic Acid Calcium Phosphorus Magnesium AST ALT Lactate Dehydrogenase CK-MB (CK-2) C-Reactive Protein NT-Pro-B Natriuret Pep Total Protein Albumin Arterial Blood Glucose Urine WBC (Auto) 01/11/20 01/11/20 01/12/20 18:27 23:28 00:23 WBC RBC Hgb 9.8 L Hct 31.6 L MCHC 31 L RDW 17.8 H MCV 83 L MCH 26 L Lymph % (Auto) [place] % (Auto) 8.0 H [place] # Eos # Lymph # (Auto) [place] # (Auto) Eos # (Auto) Seg Neutrophils % Seg Neuts % (Manual) Baso # (Auto) Lymphocytes % (Manual) Monocytes % (Manual) Eosinophils % (Manual) Basophils % (Manual) Seg Neutrophils # Seg Neutrophils # Man Lymphocytes # (Manual) Monocytes # (Manual) Eosinophils # (Manual) Nucleated RBC % Basophils # (Manual) PT INR APTT Heparin Anti-Xa Level ABG pH POC ABG pO2 ABG pO2 ABG HCO3 ABG O2 Saturation ABG Base Excess POC ABG pCO2 ABG Hemoglobin ABG Oxyhemoglobin ABG Glucose Oxyhemoglobin Sodium Potassium Chloride Carbon Dioxide BUN Creatinine Glucose POC Glucose 118 H 122 H Lactic Acid Calcium Phosphorus Magnesium AST ALT Lactate Dehydrogenase CK-MB (CK-2) C-Reactive Protein NT-Pro-B Natriuret Pep Total Protein Albumin Arterial Blood Glucose Urine WBC (Auto) 01/12/20 01/12/20 01/12/20 00:23 04:18 04:18 WBC RBC Hgb 9.6 L Hct 30.9 L MCHC 31 L RDW 17.3 H MCV 81 L MCH 25 L Lymph % (Auto) [place] % (Auto) [place] # Eos # Lymph # (Auto) [place] # (Auto) Eos # (Auto) Seg Neutrophils % Seg Neuts % (Manual) Baso # (Auto) Lymphocytes % (Manual) Monocytes % (Manual) Eosinophils % (Manual) Basophils % (Manual) Seg Neutrophils # Seg Neutrophils # Man Lymphocytes # (Manual) Monocytes # (Manual) Eosinophils # (Manual) Nucleated RBC % Basophils # (Manual) PT INR APTT Heparin Anti-Xa Level ABG pH POC ABG pO2 ABG pO2 ABG HCO3 ABG O2 Saturation ABG Base Excess POC ABG pCO2 ABG Hemoglobin ABG Oxyhemoglobin ABG Glucose Oxyhemoglobin Sodium Potassium Chloride Carbon Dioxide BUN Creatinine 0.7 L 0.7 L Glucose 111 H 108 H POC Glucose Lactic Acid Calcium Phosphorus Magnesium AST ALT Lactate Dehydrogenase CK-MB (CK-2) C-Reactive Protein NT-Pro-B Natriuret Pep Total Protein Albumin 2.6 L Arterial Blood Glucose Urine WBC (Auto) 01/12/20 01/12/20 01/12/20 06:03 12:27 13:58 WBC RBC Hgb Hct MCHC RDW MCV MCH Lymph % (Auto) [place] % (Auto) [place] # Eos # Lymph # (Auto) [place] # (Auto) Eos # (Auto) Seg Neutrophils % Seg Neuts % (Manual) Baso # (Auto) Lymphocytes % (Manual) Monocytes % (Manual) Eosinophils % (Manual) Basophils % (Manual) Seg Neutrophils # Seg Neutrophils # Man Lymphocytes # (Manual) Monocytes # (Manual) Eosinophils # (Manual) Nucleated RBC % Basophils # (Manual) PT INR APTT Heparin Anti-Xa Level ABG pH 7.453 H POC ABG pO2 76.6 L ABG pO2 ABG HCO3 ABG O2 Saturation ABG Base Excess POC ABG pCO2 ABG Hemoglobin 10.3 L ABG Oxyhemoglobin ABG Glucose 99 H Oxyhemoglobin Sodium Potassium Chloride Carbon Dioxide BUN Creatinine Glucose POC Glucose 128 H 121 H Lactic Acid Calcium Phosphorus Magnesium AST ALT Lactate Dehydrogenase CK-MB (CK-2) C-Reactive Protein NT-Pro-B Natriuret Pep Total Protein Albumin Arterial Blood Glucose 99 H Urine WBC (Auto) 01/12/20 01/13/20 01/13/20 18:24 12:01 17:46 WBC RBC Hgb Hct MCHC RDW MCV MCH Lymph % (Auto) [place] % (Auto) [place] # Eos # Lymph # (Auto) [place] # (Auto) Eos # (Auto) Seg Neutrophils % Seg Neuts % (Manual) Baso # (Auto) Lymphocytes % (Manual) Monocytes % (Manual) Eosinophils % (Manual) Basophils % (Manual) Seg Neutrophils # Seg Neutrophils # Man Lymphocytes # (Manual) Monocytes # (Manual) Eosinophils # (Manual) Nucleated RBC % Basophils # (Manual) PT INR APTT Heparin Anti-Xa Level ABG pH POC ABG pO2 ABG pO2 ABG HCO3 ABG O2 Saturation ABG Base Excess POC ABG pCO2 ABG Hemoglobin ABG Oxyhemoglobin ABG Glucose Oxyhemoglobin Sodium Potassium Chloride Carbon Dioxide BUN Creatinine Glucose POC Glucose 119 H 107 H 124 H Lactic Acid Calcium Phosphorus Magnesium AST ALT Lactate Dehydrogenase CK-MB (CK-2) C-Reactive Protein NT-Pro-B Natriuret Pep Total Protein Albumin Arterial Blood Glucose Urine WBC (Auto) 01/13/20 01/14/20 01/14/20 20:40 00:10 05:33 WBC RBC Hgb Hct MCHC RDW MCV MCH Lymph % (Auto) [place] % (Auto) [place] # Eos # Lymph # (Auto) [place] # (Auto) Eos # (Auto) Seg Neutrophils % Seg Neuts % (Manual) Baso # (Auto) Lymphocytes % (Manual) Monocytes % (Manual) Eosinophils % (Manual) Basophils % (Manual) Seg Neutrophils # Seg Neutrophils # Man Lymphocytes # (Manual) Monocytes # (Manual) Eosinophils # (Manual) Nucleated RBC % Basophils # (Manual) PT INR APTT Heparin Anti-Xa Level ABG pH POC ABG pO2 ABG pO2 65.3 L ABG HCO3 31.8 H ABG O2 Saturation 93.5 L ABG Base Excess 6.7 H POC ABG pCO2 ABG Hemoglobin 13.3 L ABG Oxyhemoglobin ABG Glucose Oxyhemoglobin 90.9 L Sodium Potassium Chloride Carbon Dioxide BUN Creatinine Glucose POC Glucose 111 H 111 H Lactic Acid Calcium Phosphorus Magnesium AST ALT Lactate Dehydrogenase CK-MB (CK-2) C-Reactive Protein NT-Pro-B Natriuret Pep Total Protein Albumin Arterial Blood Glucose Urine WBC (Auto) 01/14/20 01/14/20 01/14/20 12:10 16:14 16:14 WBC RBC Hgb 10.6 L Hct 34.2 L MCHC 31 L RDW 18.3 H MCV 83 L MCH 26 L Lymph % (Auto) [place] % (Auto) 7.4 H [place] # Eos # Lymph # (Auto) [place] # (Auto) Eos # (Auto) Seg Neutrophils % 71.9 H Seg Neuts % (Manual) Baso # (Auto) Lymphocytes % (Manual) Monocytes % (Manual) Eosinophils % (Manual) Basophils % (Manual) Seg Neutrophils # Seg Neutrophils # Man Lymphocytes # (Manual) Monocytes # (Manual) Eosinophils # (Manual) Nucleated RBC % Basophils # (Manual) PT INR APTT Heparin Anti-Xa Level ABG pH POC ABG pO2 ABG pO2 ABG HCO3 ABG O2 Saturation ABG Base Excess POC ABG pCO2 ABG Hemoglobin ABG Oxyhemoglobin ABG Glucose Oxyhemoglobin Sodium Potassium Chloride Carbon Dioxide 31 H BUN Creatinine 0.6 L Glucose 131 H POC Glucose 139 H Lactic Acid Calcium Phosphorus Magnesium AST ALT Lactate Dehydrogenase CK-MB (CK-2) C-Reactive Protein NT-Pro-B Natriuret Pep Total Protein Albumin Arterial Blood Glucose Urine WBC (Auto) 01/14/20 01/15/20 01/15/20 18:05 00:52 05:35 WBC RBC Hgb Hct MCHC RDW MCV MCH Lymph % (Auto) [place] % (Auto) [place] # Eos # Lymph # (Auto) [place] # (Auto) Eos # (Auto) Seg Neutrophils % Seg Neuts % (Manual) Baso # (Auto) Lymphocytes % (Manual) Monocytes % (Manual) Eosinophils % (Manual) Basophils % (Manual) Seg Neutrophils # Seg Neutrophils # Man Lymphocytes # (Manual) Monocytes # (Manual) Eosinophils # (Manual) Nucleated RBC % Basophils # (Manual) PT INR APTT Heparin Anti-Xa Level ABG pH POC ABG pO2 ABG pO2 ABG HCO3 ABG O2 Saturation ABG Base Excess POC ABG pCO2 ABG Hemoglobin ABG Oxyhemoglobin ABG Glucose Oxyhemoglobin Sodium Potassium Chloride Carbon Dioxide BUN Creatinine Glucose POC Glucose 147 H 140 H 159 H Lactic Acid Calcium Phosphorus Magnesium AST ALT Lactate Dehydrogenase CK-MB (CK-2) C-Reactive Protein NT-Pro-B Natriuret Pep Total Protein Albumin Arterial Blood Glucose Urine WBC (Auto) 01/15/20 01/15/20 01/16/20 12:52 17:43 00:32 WBC RBC Hgb Hct MCHC RDW MCV MCH Lymph % (Auto) [place] % (Auto) [place] # Eos # Lymph # (Auto) [place] # (Auto) Eos # (Auto) Seg Neutrophils % Seg Neuts % (Manual) Baso # (Auto) Lymphocytes % (Manual) Monocytes % (Manual) Eosinophils % (Manual) Basophils % (Manual) Seg Neutrophils # Seg Neutrophils # Man Lymphocytes # (Manual) Monocytes # (Manual) Eosinophils # (Manual) Nucleated RBC % Basophils # (Manual) PT INR APTT Heparin Anti-Xa Level ABG pH POC ABG pO2 ABG pO2 ABG HCO3 ABG O2 Saturation ABG Base Excess POC ABG pCO2 ABG Hemoglobin ABG Oxyhemoglobin ABG Glucose Oxyhemoglobin Sodium Potassium Chloride Carbon Dioxide BUN Creatinine Glucose POC Glucose 164 H 167 H 153 H Lactic Acid Calcium Phosphorus Magnesium AST ALT Lactate Dehydrogenase CK-MB (CK-2) C-Reactive Protein NT-Pro-B Natriuret Pep Total Protein Albumin Arterial Blood Glucose Urine WBC (Auto) 01/16/20 01/16/20 01/17/20 05:46 11:48 06:38 WBC RBC Hgb Hct MCHC RDW MCV MCH Lymph % (Auto) [place] % (Auto) [place] # Eos # Lymph # (Auto) [place] # (Auto) Eos # (Auto) Seg Neutrophils % Seg Neuts % (Manual) Baso # (Auto) Lymphocytes % (Manual) Monocytes % (Manual) Eosinophils % (Manual) Basophils % (Manual) Seg Neutrophils # Seg Neutrophils # Man Lymphocytes # (Manual) Monocytes # (Manual) Eosinophils # (Manual) Nucleated RBC % Basophils # (Manual) PT INR APTT Heparin Anti-Xa Level ABG pH POC ABG pO2 ABG pO2 ABG HCO3 ABG O2 Saturation ABG Base Excess POC ABG pCO2 ABG Hemoglobin ABG Oxyhemoglobin ABG Glucose Oxyhemoglobin Sodium Potassium Chloride Carbon Dioxide BUN Creatinine Glucose POC Glucose 163 H 155 H 116 H Lactic Acid Calcium Phosphorus Magnesium AST ALT Lactate Dehydrogenase CK-MB (CK-2) C-Reactive Protein NT-Pro-B Natriuret Pep Total Protein Albumin Arterial Blood Glucose Urine WBC (Auto) 01/17/20 01/17/20 01/18/20 11:36 17:43 00:12 WBC RBC Hgb Hct MCHC RDW MCV MCH Lymph % (Auto) [place] % (Auto) [place] # Eos # Lymph # (Auto) [place] # (Auto) Eos # (Auto) Seg Neutrophils % Seg Neuts % (Manual) Baso # (Auto) Lymphocytes % (Manual) Monocytes % (Manual) Eosinophils % (Manual) Basophils % (Manual) Seg Neutrophils # Seg Neutrophils # Man Lymphocytes # (Manual) Monocytes # (Manual) Eosinophils # (Manual) Nucleated RBC % Basophils # (Manual) PT INR APTT Heparin Anti-Xa Level ABG pH POC ABG pO2 ABG pO2 ABG HCO3 ABG O2 Saturation ABG Base Excess POC ABG pCO2 ABG Hemoglobin ABG Oxyhemoglobin ABG Glucose Oxyhemoglobin Sodium Potassium Chloride Carbon Dioxide BUN Creatinine Glucose POC Glucose 110 H 134 H 108 H Lactic Acid Calcium Phosphorus Magnesium AST ALT Lactate Dehydrogenase CK-MB (CK-2) C-Reactive Protein NT-Pro-B Natriuret Pep Total Protein Albumin Arterial Blood Glucose Urine WBC (Auto) 01/18/20 01/18/20 01/18/20 05:37 06:46 06:46 WBC RBC Hgb 10.1 L Hct 32.2 L MCHC 31 L RDW 18.1 H MCV 81 L MCH 25 L Lymph % (Auto) [place] % (Auto) [place] # Eos # Lymph # (Auto) [place] # (Auto) Eos # (Auto) Seg Neutrophils % 71.9 H Seg Neuts % (Manual) Baso # (Auto) Lymphocytes % (Manual) Monocytes % (Manual) Eosinophils % (Manual) Basophils % (Manual) Seg Neutrophils # Seg Neutrophils # Man Lymphocytes # (Manual) Monocytes # (Manual) Eosinophils # (Manual) Nucleated RBC % Basophils # (Manual) PT INR APTT Heparin Anti-Xa Level ABG pH POC ABG pO2 ABG pO2 ABG HCO3 ABG O2 Saturation ABG Base Excess POC ABG pCO2 ABG Hemoglobin ABG Oxyhemoglobin ABG Glucose Oxyhemoglobin Sodium Potassium Chloride Carbon Dioxide BUN Creatinine 0.7 L Glucose 155 H POC Glucose 168 H Lactic Acid Calcium Phosphorus Magnesium AST ALT Lactate Dehydrogenase CK-MB (CK-2) C-Reactive Protein NT-Pro-B Natriuret Pep Total Protein Albumin Arterial Blood Glucose Urine WBC (Auto) 01/18/20 01/18/20 01/18/20 12:05 17:14 23:28 WBC RBC Hgb Hct MCHC RDW MCV MCH Lymph % (Auto) [place] % (Auto) [place] # Eos # Lymph # (Auto) [place] # (Auto) Eos # (Auto) Seg Neutrophils % Seg Neuts % (Manual) Baso # (Auto) Lymphocytes % (Manual) Monocytes % (Manual) Eosinophils % (Manual) Basophils % (Manual) Seg Neutrophils # Seg Neutrophils # Man Lymphocytes # (Manual) Monocytes # (Manual) Eosinophils # (Manual) Nucleated RBC % Basophils # (Manual) PT INR APTT Heparin Anti-Xa Level ABG pH POC ABG pO2 ABG pO2 ABG HCO3 ABG O2 Saturation ABG Base Excess POC ABG pCO2 ABG Hemoglobin ABG Oxyhemoglobin ABG Glucose Oxyhemoglobin Sodium Potassium Chloride Carbon Dioxide BUN Creatinine Glucose POC Glucose 128 H 126 H 128 H Lactic Acid Calcium Phosphorus Magnesium AST ALT Lactate Dehydrogenase CK-MB (CK-2) C-Reactive Protein NT-Pro-B Natriuret Pep Total Protein Albumin Arterial Blood Glucose Urine WBC (Auto) 01/19/20 01/19/20 01/19/20 05:39 12:33 17:36 WBC RBC Hgb Hct MCHC RDW MCV MCH Lymph % (Auto) [place] % (Auto) [place] # Eos # Lymph # (Auto) [place] # (Auto) Eos # (Auto) Seg Neutrophils % Seg Neuts % (Manual) Baso # (Auto) Lymphocytes % (Manual) Monocytes % (Manual) Eosinophils % (Manual) Basophils % (Manual) Seg Neutrophils # Seg Neutrophils # Man Lymphocytes # (Manual) Monocytes # (Manual) Eosinophils # (Manual) Nucleated RBC % Basophils # (Manual) PT INR APTT Heparin Anti-Xa Level ABG pH POC ABG pO2 ABG pO2 ABG HCO3 ABG O2 Saturation ABG Base Excess POC ABG pCO2 ABG Hemoglobin ABG Oxyhemoglobin ABG Glucose Oxyhemoglobin Sodium Potassium Chloride Carbon Dioxide BUN Creatinine Glucose POC Glucose 164 H 171 H 152 H Lactic Acid Calcium Phosphorus Magnesium AST ALT Lactate Dehydrogenase CK-MB (CK-2) C-Reactive Protein NT-Pro-B Natriuret Pep Total Protein Albumin Arterial Blood Glucose Urine WBC (Auto) 01/20/20 01/20/20 01/20/20 00:12 05:20 05:35 WBC RBC Hgb 9.2 L Hct 29.4 L MCHC 31 L RDW 17.9 H MCV 81 L MCH 25 L Lymph % (Auto) [place] % (Auto) [place] # Eos # Lymph # (Auto) [place] # (Auto) Eos # (Auto) Seg Neutrophils % Seg Neuts % (Manual) Baso # (Auto) Lymphocytes % (Manual) Monocytes % (Manual) Eosinophils % (Manual) Basophils % (Manual) Seg Neutrophils # Seg Neutrophils # Man Lymphocytes # (Manual) Monocytes # (Manual) Eosinophils # (Manual) Nucleated RBC % Basophils # (Manual) PT INR APTT Heparin Anti-Xa Level ABG pH POC ABG pO2 ABG pO2 ABG HCO3 ABG O2 Saturation ABG Base Excess POC ABG pCO2 ABG Hemoglobin ABG Oxyhemoglobin ABG Glucose Oxyhemoglobin Sodium Potassium Chloride Carbon Dioxide BUN Creatinine Glucose POC Glucose 120 H 136 H Lactic Acid Calcium Phosphorus Magnesium AST ALT Lactate Dehydrogenase CK-MB (CK-2) C-Reactive Protein NT-Pro-B Natriuret Pep Total Protein Albumin Arterial Blood Glucose Urine WBC (Auto) 01/20/20 01/20/20 01/20/20 05:40 11:58 14:55 WBC RBC Hgb 9.0 L Hct 28.3 L MCHC RDW MCV MCH Lymph % (Auto) [place] % (Auto) [place] # Eos # Lymph # (Auto) [place] # (Auto) Eos # (Auto) Seg Neutrophils % Seg Neuts % (Manual) Baso # (Auto) Lymphocytes % (Manual) Monocytes % (Manual) Eosinophils % (Manual) Basophils % (Manual) Seg Neutrophils # Seg Neutrophils # Man Lymphocytes # (Manual) Monocytes # (Manual) Eosinophils # (Manual) Nucleated RBC % Basophils # (Manual) PT INR APTT Heparin Anti-Xa Level ABG pH POC ABG pO2 ABG pO2 ABG HCO3 ABG O2 Saturation ABG Base Excess POC ABG pCO2 ABG Hemoglobin ABG Oxyhemoglobin ABG Glucose Oxyhemoglobin Sodium Potassium Chloride Carbon Dioxide 32 H BUN 22 H Creatinine 0.7 L Glucose 128 H POC Glucose 152 H Lactic Acid Calcium Phosphorus Magnesium AST ALT Lactate Dehydrogenase CK-MB (CK-2) C-Reactive Protein NT-Pro-B Natriuret Pep Total Protein Albumin Arterial Blood Glucose Urine WBC (Auto) 01/20/20 01/20/20 01/20/20 14:55 18:14 21:35 WBC RBC Hgb Hct MCHC RDW MCV MCH Lymph % (Auto) [place] % (Auto) [place] # Eos # Lymph # (Auto) [place] # (Auto) Eos # (Auto) Seg Neutrophils % Seg Neuts % (Manual) Baso # (Auto) Lymphocytes % (Manual) Monocytes % (Manual) Eosinophils % (Manual) Basophils % (Manual) Seg Neutrophils # Seg Neutrophils # Man Lymphocytes # (Manual) Monocytes # (Manual) Eosinophils # (Manual) Nucleated RBC % Basophils # (Manual) PT 20.4 H INR 1.72 H APTT 40.6 H Heparin Anti-Xa Level > 2.00 H ABG pH POC ABG pO2 ABG pO2 ABG HCO3 ABG O2 Saturation ABG Base Excess POC ABG pCO2 ABG Hemoglobin ABG Oxyhemoglobin ABG Glucose Oxyhemoglobin Sodium Potassium Chloride Carbon Dioxide BUN Creatinine Glucose POC Glucose 150 H Lactic Acid Calcium Phosphorus Magnesium AST ALT Lactate Dehydrogenase CK-MB (CK-2) C-Reactive Protein NT-Pro-B Natriuret Pep Total Protein Albumin Arterial Blood Glucose Urine WBC (Auto) 01/21/20 01/21/20 01/21/20 00:30 05:47 05:59 WBC RBC Hgb Hct MCHC RDW MCV MCH Lymph % (Auto) [place] % (Auto) [place] # Eos # Lymph # (Auto) [place] # (Auto) Eos # (Auto) Seg Neutrophils % Seg Neuts % (Manual) Baso # (Auto) Lymphocytes % (Manual) Monocytes % (Manual) Eosinophils % (Manual) Basophils % (Manual) Seg Neutrophils # Seg Neutrophils # Man Lymphocytes # (Manual) Monocytes # (Manual) Eosinophils # (Manual) Nucleated RBC % Basophils # (Manual) PT INR APTT Heparin Anti-Xa Level 1.93 H ABG pH POC ABG pO2 ABG pO2 ABG HCO3 ABG O2 Saturation ABG Base Excess POC ABG pCO2 ABG Hemoglobin ABG Oxyhemoglobin ABG Glucose Oxyhemoglobin Sodium Potassium Chloride Carbon Dioxide BUN Creatinine Glucose POC Glucose 126 H 148 H Lactic Acid Calcium Phosphorus Magnesium AST ALT Lactate Dehydrogenase CK-MB (CK-2) C-Reactive Protein NT-Pro-B Natriuret Pep Total Protein Albumin Arterial Blood Glucose Urine WBC (Auto) 01/21/20 01/21/20 01/21/20 12:32 18:20 23:54 WBC RBC Hgb Hct MCHC RDW MCV MCH Lymph % (Auto) [place] % (Auto) [place] # Eos # Lymph # (Auto) [place] # (Auto) Eos # (Auto) Seg Neutrophils % Seg Neuts % (Manual) Baso # (Auto) Lymphocytes % (Manual) Monocytes % (Manual) Eosinophils % (Manual) Basophils % (Manual) Seg Neutrophils # Seg Neutrophils # Man Lymphocytes # (Manual) Monocytes # (Manual) Eosinophils # (Manual) Nucleated RBC % Basophils # (Manual) PT INR APTT Heparin Anti-Xa Level 1.28 H ABG pH POC ABG pO2 ABG pO2 ABG HCO3 ABG O2 Saturation ABG Base Excess POC ABG pCO2 ABG Hemoglobin ABG Oxyhemoglobin ABG Glucose Oxyhemoglobin Sodium Potassium Chloride Carbon Dioxide BUN Creatinine Glucose POC Glucose 112 H 146 H Lactic Acid Calcium Phosphorus Magnesium AST ALT Lactate Dehydrogenase CK-MB (CK-2) C-Reactive Protein NT-Pro-B Natriuret Pep Total Protein Albumin Arterial Blood Glucose Urine WBC (Auto) 01/22/20 01/22/20 01/22/20 04:45 04:45 05:48 WBC RBC Hgb 9.3 L Hct 29.0 L MCHC RDW MCV MCH Lymph % (Auto) [place] % (Auto) [place] # Eos # Lymph # (Auto) [place] # (Auto) Eos # (Auto) Seg Neutrophils % Seg Neuts % (Manual) Baso # (Auto) Lymphocytes % (Manual) Monocytes % (Manual) Eosinophils % (Manual) Basophils % (Manual) Seg Neutrophils # Seg Neutrophils # Man Lymphocytes # (Manual) Monocytes # (Manual) Eosinophils # (Manual) Nucleated RBC % Basophils # (Manual) PT INR APTT Heparin Anti-Xa Level 1.34 H ABG pH POC ABG pO2 ABG pO2 ABG HCO3 ABG O2 Saturation ABG Base Excess POC ABG pCO2 ABG Hemoglobin ABG Oxyhemoglobin ABG Glucose Oxyhemoglobin Sodium Potassium Chloride Carbon Dioxide BUN Creatinine Glucose POC Glucose 142 H Lactic Acid Calcium Phosphorus Magnesium AST ALT Lactate Dehydrogenase CK-MB (CK-2) C-Reactive Protein NT-Pro-B Natriuret Pep Total Protein Albumin Arterial Blood Glucose Urine WBC (Auto) 01/22/20 01/22/20 01/22/20 08:09 08:22 09:58 WBC RBC Hgb Hct MCHC RDW MCV MCH Lymph % (Auto) [place] % (Auto) [place] # Eos # Lymph # (Auto) [place] # (Auto) Eos # (Auto) Seg Neutrophils % Seg Neuts % (Manual) Baso # (Auto) Lymphocytes % (Manual) Monocytes % (Manual) Eosinophils % (Manual) Basophils % (Manual) Seg Neutrophils # Seg Neutrophils # Man Lymphocytes # (Manual) Monocytes # (Manual) Eosinophils # (Manual) Nucleated RBC % Basophils # (Manual) PT 16.9 H INR 1.34 H APTT Heparin Anti-Xa Level ABG pH POC ABG pO2 ABG pO2 ABG HCO3 ABG O2 Saturation ABG Base Excess POC ABG pCO2 ABG Hemoglobin ABG Oxyhemoglobin ABG Glucose Oxyhemoglobin Sodium Potassium Chloride 97.8 L Carbon Dioxide BUN 29 H Creatinine Glucose 128 H POC Glucose 131 H Lactic Acid Calcium Phosphorus Magnesium AST ALT Lactate Dehydrogenase CK-MB (CK-2) C-Reactive Protein NT-Pro-B Natriuret Pep Total Protein Albumin Arterial Blood Glucose Urine WBC (Auto) 01/22/20 01/22/20 01/22/20 12:44 16:13 18:18 WBC RBC Hgb Hct MCHC RDW MCV MCH Lymph % (Auto) [place] % (Auto) [place] # Eos # Lymph # (Auto) [place] # (Auto) Eos # (Auto) Seg Neutrophils % Seg Neuts % (Manual) Baso # (Auto) Lymphocytes % (Manual) Monocytes % (Manual) Eosinophils % (Manual) Basophils % (Manual) Seg Neutrophils # Seg Neutrophils # Man Lymphocytes # (Manual) Monocytes # (Manual) Eosinophils # (Manual) Nucleated RBC % Basophils # (Manual) PT INR APTT Heparin Anti-Xa Level ABG pH POC ABG pO2 ABG pO2 ABG HCO3 ABG O2 Saturation ABG Base Excess POC ABG pCO2 ABG Hemoglobin ABG Oxyhemoglobin ABG Glucose Oxyhemoglobin Sodium Potassium Chloride Carbon Dioxide BUN Creatinine Glucose POC Glucose 156 H 133 H 155 H Lactic Acid Calcium Phosphorus Magnesium AST ALT Lactate Dehydrogenase CK-MB (CK-2) C-Reactive Protein NT-Pro-B Natriuret Pep Total Protein Albumin Arterial Blood Glucose Urine WBC (Auto) 01/22/20 01/23/20 01/23/20 23:22 05:37 12:59 WBC RBC Hgb Hct MCHC RDW MCV MCH Lymph % (Auto) [place] % (Auto) [place] # Eos # Lymph # (Auto) [place] # (Auto) Eos # (Auto) Seg Neutrophils % Seg Neuts % (Manual) Baso # (Auto) Lymphocytes % (Manual) Monocytes % (Manual) Eosinophils % (Manual) Basophils % (Manual) Seg Neutrophils # Seg Neutrophils # Man Lymphocytes # (Manual) Monocytes # (Manual) Eosinophils # (Manual) Nucleated RBC % Basophils # (Manual) PT INR APTT Heparin Anti-Xa Level ABG pH POC ABG pO2 ABG pO2 ABG HCO3 ABG O2 Saturation ABG Base Excess POC ABG pCO2 ABG Hemoglobin ABG Oxyhemoglobin ABG Glucose Oxyhemoglobin Sodium Potassium Chloride Carbon Dioxide BUN Creatinine Glucose POC Glucose 148 H 163 H 175 H Lactic Acid Calcium Phosphorus Magnesium AST ALT Lactate Dehydrogenase CK-MB (CK-2) C-Reactive Protein NT-Pro-B Natriuret Pep Total Protein Albumin Arterial Blood Glucose Urine WBC (Auto) 01/23/20 01/23/20 01/24/20 17:28 23:56 04:30 WBC RBC 3.46 L Hgb 8.8 L Hct 27.8 L MCHC RDW 18.2 H MCV 81 L MCH 25 L Lymph % (Auto) [place] % (Auto) 7.8 H [place] # Eos # Lymph # (Auto) [place] # (Auto) Eos # (Auto) Seg Neutrophils % Seg Neuts % (Manual) Baso # (Auto) Lymphocytes % (Manual) Monocytes % (Manual) Eosinophils % (Manual) Basophils % (Manual) Seg Neutrophils # Seg Neutrophils # Man Lymphocytes # (Manual) Monocytes # (Manual) Eosinophils # (Manual) Nucleated RBC % Basophils # (Manual) PT INR APTT Heparin Anti-Xa Level ABG pH POC ABG pO2 ABG pO2 ABG HCO3 ABG O2 Saturation ABG Base Excess POC ABG pCO2 ABG Hemoglobin ABG Oxyhemoglobin ABG Glucose Oxyhemoglobin Sodium Potassium Chloride Carbon Dioxide BUN Creatinine Glucose POC Glucose 165 H 177 H Lactic Acid Calcium Phosphorus Magnesium AST ALT Lactate Dehydrogenase CK-MB (CK-2) C-Reactive Protein NT-Pro-B Natriuret Pep Total Protein Albumin Arterial Blood Glucose Urine WBC (Auto) 01/24/20 01/24/20 01/24/20 04:30 07:18 12:06 WBC RBC Hgb Hct MCHC RDW MCV MCH Lymph % (Auto) [place] % (Auto) [place] # Eos # Lymph # (Auto) [place] # (Auto) Eos # (Auto) Seg Neutrophils % Seg Neuts % (Manual) Baso # (Auto) Lymphocytes % (Manual) Monocytes % (Manual) Eosinophils % (Manual) Basophils % (Manual) Seg Neutrophils # Seg Neutrophils # Man Lymphocytes # (Manual) Monocytes # (Manual) Eosinophils # (Manual) Nucleated RBC % Basophils # (Manual) PT INR APTT Heparin Anti-Xa Level ABG pH POC ABG pO2 ABG pO2 ABG HCO3 ABG O2 Saturation ABG Base Excess POC ABG pCO2 ABG Hemoglobin ABG Oxyhemoglobin ABG Glucose Oxyhemoglobin Sodium Potassium Chloride 97.9 L Carbon Dioxide BUN 31 H Creatinine Glucose 146 H POC Glucose 151 H 133 H Lactic Acid Calcium Phosphorus Magnesium AST ALT Lactate Dehydrogenase CK-MB (CK-2) C-Reactive Protein NT-Pro-B Natriuret Pep Total Protein Albumin Arterial Blood Glucose Urine WBC (Auto) 01/24/20 01/25/20 01/25/20 17:36 00:08 04:25 WBC RBC 3.50 L Hgb 8.7 L Hct 27.9 L MCHC 31 L RDW 18.2 H MCV 80 L MCH 25 L Lymph % (Auto) [place] % (Auto) 8.5 H [place] # Eos # Lymph # (Auto) [place] # (Auto) Eos # (Auto) Seg Neutrophils % Seg Neuts % (Manual) Baso # (Auto) Lymphocytes % (Manual) Monocytes % (Manual) Eosinophils % (Manual) Basophils % (Manual) Seg Neutrophils # Seg Neutrophils # Man Lymphocytes # (Manual) Monocytes # (Manual) Eosinophils # (Manual) Nucleated RBC % Basophils # (Manual) PT INR APTT Heparin Anti-Xa Level ABG pH POC ABG pO2 ABG pO2 ABG HCO3 ABG O2 Saturation ABG Base Excess POC ABG pCO2 ABG Hemoglobin ABG Oxyhemoglobin ABG Glucose Oxyhemoglobin Sodium Potassium Chloride Carbon Dioxide BUN Creatinine Glucose POC Glucose 133 H 129 H Lactic Acid Calcium Phosphorus Magnesium AST ALT Lactate Dehydrogenase CK-MB (CK-2) C-Reactive Protein NT-Pro-B Natriuret Pep Total Protein Albumin Arterial Blood Glucose Urine WBC (Auto) 01/25/20 01/25/20 01/25/20 04:25 05:38 11:52 WBC RBC Hgb Hct MCHC RDW MCV MCH Lymph % (Auto) [place] % (Auto) [place] # Eos # Lymph # (Auto) [place] # (Auto) Eos # (Auto) Seg Neutrophils % Seg Neuts % (Manual) Baso # (Auto) Lymphocytes % (Manual) Monocytes % (Manual) Eosinophils % (Manual) Basophils % (Manual) Seg Neutrophils # Seg Neutrophils # Man Lymphocytes # (Manual) Monocytes # (Manual) Eosinophils # (Manual) Nucleated RBC % Basophils # (Manual) PT INR APTT Heparin Anti-Xa Level ABG pH POC ABG pO2 ABG pO2 ABG HCO3 ABG O2 Saturation ABG Base Excess POC ABG pCO2 ABG Hemoglobin ABG Oxyhemoglobin ABG Glucose Oxyhemoglobin Sodium Potassium Chloride Carbon Dioxide BUN 30 H Creatinine Glucose 134 H POC Glucose 129 H 134 H Lactic Acid Calcium Phosphorus Magnesium AST ALT Lactate Dehydrogenase CK-MB (CK-2) C-Reactive Protein NT-Pro-B Natriuret Pep Total Protein Albumin Arterial Blood Glucose Urine WBC (Auto) 01/25/20 01/25/20 01/26/20 17:13 21:02 00:59 WBC RBC Hgb Hct MCHC RDW MCV MCH Lymph % (Auto) [place] % (Auto) [place] # Eos # Lymph # (Auto) [place] # (Auto) Eos # (Auto) Seg Neutrophils % Seg Neuts % (Manual) Baso # (Auto) Lymphocytes % (Manual) Monocytes % (Manual) Eosinophils % (Manual) Basophils % (Manual) Seg Neutrophils # Seg Neutrophils # Man Lymphocytes # (Manual) Monocytes # (Manual) Eosinophils # (Manual) Nucleated RBC % Basophils # (Manual) PT INR APTT Heparin Anti-Xa Level ABG pH POC ABG pO2 ABG pO2 57.5 L ABG HCO3 31.7 H ABG O2 Saturation 90.3 L ABG Base Excess 6.6 H POC ABG pCO2 ABG Hemoglobin 13.0 L ABG Oxyhemoglobin ABG Glucose Oxyhemoglobin 87.5 L Sodium Potassium Chloride Carbon Dioxide BUN Creatinine Glucose POC Glucose 124 H 196 H Lactic Acid Calcium Phosphorus Magnesium AST ALT Lactate Dehydrogenase CK-MB (CK-2) C-Reactive Protein NT-Pro-B Natriuret Pep Total Protein Albumin Arterial Blood Glucose Urine WBC (Auto) 01/26/20 01/26/20 01/26/20 03:20 05:46 12:46 WBC RBC Hgb 9.2 L Hct 29.4 L MCHC RDW MCV MCH Lymph % (Auto) [place] % (Auto) [place] # Eos # Lymph # (Auto) [place] # (Auto) Eos # (Auto) Seg Neutrophils % Seg Neuts % (Manual) Baso # (Auto) Lymphocytes % (Manual) Monocytes % (Manual) Eosinophils % (Manual) Basophils % (Manual) Seg Neutrophils # Seg Neutrophils # Man Lymphocytes # (Manual) Monocytes # (Manual) Eosinophils # (Manual) Nucleated RBC % Basophils # (Manual) PT INR APTT Heparin Anti-Xa Level ABG pH POC ABG pO2 ABG pO2 ABG HCO3 ABG O2 Saturation ABG Base Excess POC ABG pCO2 ABG Hemoglobin ABG Oxyhemoglobin ABG Glucose Oxyhemoglobin Sodium Potassium Chloride Carbon Dioxide BUN Creatinine Glucose POC Glucose 141 H 122 H Lactic Acid Calcium Phosphorus Magnesium AST ALT Lactate Dehydrogenase CK-MB (CK-2) C-Reactive Protein NT-Pro-B Natriuret Pep Total Protein Albumin Arterial Blood Glucose Urine WBC (Auto) 01/26/20 01/26/20 01/27/20 18:03 23:55 04:47 WBC RBC Hgb Hct MCHC RDW MCV MCH Lymph % (Auto) [place] % (Auto) [place] # Eos # Lymph # (Auto) [place] # (Auto) Eos # (Auto) Seg Neutrophils % Seg Neuts % (Manual) Baso # (Auto) Lymphocytes % (Manual) Monocytes % (Manual) Eosinophils % (Manual) Basophils % (Manual) Seg Neutrophils # Seg Neutrophils # Man Lymphocytes # (Manual) Monocytes # (Manual) Eosinophils # (Manual) Nucleated RBC % Basophils # (Manual) PT INR APTT Heparin Anti-Xa Level ABG pH POC ABG pO2 ABG pO2 ABG HCO3 ABG O2 Saturation ABG Base Excess POC ABG pCO2 ABG Hemoglobin ABG Oxyhemoglobin ABG Glucose Oxyhemoglobin Sodium Potassium Chloride Carbon Dioxide BUN 30 H Creatinine 0.7 L Glucose 135 H POC Glucose 142 H 159 H Lactic Acid Calcium Phosphorus Magnesium AST ALT Lactate Dehydrogenase CK-MB (CK-2) C-Reactive Protein NT-Pro-B Natriuret Pep Total Protein Albumin Arterial Blood Glucose Urine WBC (Auto) 01/27/20 01/27/20 05:43 12:06 WBC RBC Hgb Hct MCHC RDW MCV MCH Lymph % (Auto) [place] % (Auto) [place] # Eos # Lymph # (Auto) [place] # (Auto) Eos # (Auto) Seg Neutrophils % Seg Neuts % (Manual) Baso # (Auto) Lymphocytes % (Manual) Monocytes % (Manual) Eosinophils % (Manual) Basophils % (Manual) Seg Neutrophils # Seg Neutrophils # Man Lymphocytes # (Manual) Monocytes # (Manual) Eosinophils # (Manual) Nucleated RBC % Basophils # (Manual) PT INR APTT Heparin Anti-Xa Level ABG pH POC ABG pO2 ABG pO2 ABG HCO3 ABG O2 Saturation ABG Base Excess POC ABG pCO2 ABG Hemoglobin ABG Oxyhemoglobin ABG Glucose Oxyhemoglobin Sodium Potassium Chloride Carbon Dioxide BUN Creatinine Glucose POC Glucose 143 H 142 H Lactic Acid Calcium Phosphorus Magnesium AST ALT Lactate Dehydrogenase CK-MB (CK-2) C-Reactive Protein NT-Pro-B Natriuret Pep Total Protein Albumin Arterial Blood Glucose Urine WBC (Auto) Chest x-ray: pending Allied health notes reviewed: nursing
[2020-01-27] MEDS: MORPHINE 2 MG/1 ML INJ IV PRN (18:48)
[2020-01-27] MEDS: POLYETHYLENE GLYCOL 3350 17 GM POWDER PO SCH (21:29)
[2020-01-27] MEDS: TAMSULOSIN 0.4 MG CAP PO SCH (21:31)
[2020-01-28] MEDS: METOPROLOL TARTRATE 25 MG TAB PO SCH ×4 (01:00→18:16)
[2020-01-28] MEDS: LORazepam 2 MG/ML VIAL IV PRN ×2 (04:34→23:29)
[2020-01-28] MEDS: NITROGLYCERIN 0.4 MG PATCH 24HR TD SCH (05:14)
[2020-01-28 05:42] LABS: Hematocrit 29.9 % (35.5-45.6); Hemoglobin 9.4 gm/dl (11.8-15.2)
--- NOTE | 2020-01-28 09:01 | Progress Note ---
Assessment and Plan Assessment and plan: --Ischemic cardiomyopathy Cardiology is following, status post cardiac catheterization on 01/22/2020; Cor onary artery disease status post PCI and stent to the LAD Continue current cardiac medications --Acute on chronic hypoxemic respiratory failure; Patient has tracheostomy on vent Continue nebulizers, , trach care Wean off ventilator as tolerated Pulmonary critical following --Acute exacerbation of COPD; Patient is currently on ventilatory support Continue nebulizers --Left lower lobe PE; Continue Eliquis, ventilatory support --Acute right lower extremity DVT; Patient is on Eliquis --Bilateral multifocal pneumonia/community-acquired Completed antibiotics, improved --Severe sepsis/bilateral pneumonia: Completed antibiotics COVID-19 test; 11/24/2019; negative 11/26/2019; negative 12/29/2019: Negative --Paroxysmal atrial fibrillation; Now rate controlled, Stable on amiodarone and Eliquis --Acute on chronic combined systolic and diastolic congestive heart failure Ischemic cardiomyopathy left ventricular ejection fraction 40 to 45% --H/o CAD [[facility] 12/2018 in-stent restenosis] Patient is stable on current cardiac medications Patient is a 64-year-old male with known history of hypertension, COPD, history of coronary artery disease, CHF with ejection fraction of 20 to 25% in August 2018 presenting to the emergency room via EMS complaining of shortness of breath. Patient was found to be hypoxic and in respiratory distress. Patient was placed on CPAP in route to the hospital. Patient remained hypoxic on CPAP BiPAP ,subsequently was intubated. Work-up in the emergency room including chest x-ray reveals bilateral pneumonia. He had an elevated white count of 14 and also had an elevated BNP. sputum cultures positive for Pseudomonas, ID treated with cefepime and Vanco. His hospital course became complicated with acute PE, DVT, paroxysmal atrial fib - placed on chronic anticoagulation. Patient was difficult to wean off, status post trach and PEG, remains on mechanical ventilation with trach tube. He then developed partial small bowel obstruction valuated by general surgeon symptom improved with medical Mx, patient was briefly weaned off ventilatory support however, was in respiratory failure requiring full ventilatory support. Cardiac catheterization on 01/22/2020. No new issues overnight. --Hypertensive emergency; present on admission Reasonable blood pressures, continue current antihypertensives As needed medications --History of alcohol abuse/alcohol withdrawal; Was on CIWA protocol, now stable --Oropharyngeal dysphagia; status post PEG placement Continue PEG feeds per protocol --History of partial small bowel obstruction; resolved Surgery evaluated. --Obesity; BMI 34.7 Patient needs weight reduction when medically stable --Severe protein calorie malnutrition/hypoalbuminemia Nutrition supplements, dietitian following, PEG feeds --DVT prophylaxis;Eliquis --Full CODE STATUS 01/05; Pt stable. NGT output 650cc over 24 hours, bilious. No f/c, WBC within normal limits. cont NG suction and cont to hold TF 01/06: Abs series - mild improvement in small bowel distension in mid abdomen, normal gas/stool pattern in colon. NGT in duodenum. Continue to hold tube feeding, maintain NG tube with low intermittent suction. Patient's was updated by phone. Continue to provide supportive care and monitor clinically. 01/07: +BMs today and NGT/PEG output appears more gastric today. Plan to clamp NGT, if tolerates start TF from tomorrow. cont supportive care. 01/08; Gastric output decreased over last 24 hours. NGT has been clamped x 24 hours. plan to dc NGT and to start TTF via PEG - vital HF @10cc/hr 01/09: clinically stable, tolerating TF. monitor BMP, wean off from vent as tolerated clinically stable, on TF. wean off vent as tolerated 01/11: wean off from vent, cont to monitor, on TF 01/12: wean off from vent, cont to monitor, on TF. need placement - unfunded 01/13; remains on ventilatory support, unable to wean, DC planning possible LT AC, unfunded 01/14; patient of ventilatory support, T-piece tracheostomy on oxygen, LTAC placement per case management 01/16; tracheostomy, patient on full ventilatory support, wean off vent support as tolerated, pending LTAC placement, social financial issues 01/17; awaiting LTAC placement, insurance and financial issues 01/18; patient tracheostomy remains on ventilatory support 01/19; wean off ventilator as tolerated 01/20; remains on ventilatory support, patient complains of intermittent chest pain, cardiology recommend left heart catheterization tomorrow 01/22/2020. Patient for left heart catheterization per cardiology. Patient remains on AC mode ventilation rate 12, tidal volume 450, FiO2 30% and PEEP of 6. Continue tracheostomy care, airway management and secretion control. 01/23/2020. Cardiac catheterization completed yesterday revealed widely patent previous LAD stent with mild nonobstructive atherosclerosis of the right mid coronary artery and rest of the coronary system was without significant atherosclerosis. The left ventricle ejection fraction was mildly impaired at 40 to 45%. There was some hypokinesis of the basal inferior wall suggestive of previous or recent infarct. Continue GDMT for coronary artery disease including beta blockers, topical nitrates, statin and Plavix. Continue Eliquis for paroxysmal atrial fibrillation and PE. Continue diuresis with Lasix and follow electrolytes closely. Continue Robinul and scopolamine for secretion control and daily SBT per pulmonary. Also, continue bronchodilators and routine trach care/airway management. T-piece trials per pulmonary as tolerated. 01/24/2020. Recent cardiac catheterization has documented widely patent left anterior descending artery stent with minimal nonobstructive diffuse coronary artery disease in the rest of the coronary arteries. Evidence of ischemic cardiomyopathy with inferior wall hypokinesis. Continue with guideline directed medical therapy. Continue Robinul and scopolamine for secretion control and daily SBT per pulmonary. Continue bronchodilators and routine trach care/airway management. T-piece trials per pulmonary as tolerated. 01/25/2020. Continue with guideline directed medical therapy for systolic heart failure. Cardiac catheterization revealed evidence of ischemic cardiomyopathy with inferior wall hypokinesis (EF 40-45%). Patient currently on T-piece with oxygen 10 L/min FiO2 40%. Continue Robinul and scopolamine for secretion control. Continue bronchodilators and routine trach care/airway management. 01/26/2020;Continue with guideline directed medical therapy for systolic heart failure. Cardiac catheterization revealed evidence of ischemic cardiomyopathy with inferior wall hypokinesis (EF 40-45%). Patient currently on T-piece with oxygen 10 L/min FiO2 40%. Continue Robinul and scopolamine for secretion control. Continue bronchodilators and routine trach care/airway management. 01/27/2020Continue with guideline directed medical therapy for systolic heart failure. Cardiac catheterization revealed evidence of ischemic cardiomyopathy with inferior wall hypokinesis (EF 40-45%). Patient currently on T-piece with oxygen 10 L/min FiO2 40%. Continue Robinul and scopolamine for secretion control. Continue bronchodilators and routine trach care/airway management. 01/28/2020Continue with guideline directed medical therapy for systolic heart failure. Cardiac catheterization revealed evidence of ischemic cardiomyopathy with inferior wall hypokinesis (EF 40-45%). Patient currently on T-piece with oxygen 10 L/min FiO2 40%. Continue Robinul and scopolamine for secretion control. Continue bronchodilators and routine trach care/airway management. The high probability of a clinically significant, sudden or life threatening deterioration of the [Respiratory, cardiovascular & neurological] system(s) required my full and d irect attention, intervention and personal management. The aggregate critical care time was [32] minutes without overlap. Time includes spent on [x] Data Review and interpretation [x] Patient assessment and monitoring of vital signs [x] Documentation [x] Medication orders and management History Interval history: Patient was seen and evaluated this morning Patient is intubated and he open his eyes Patient is on trach Hospitalist Physical - Physical exam Narrative exam: Patient is on trach Patient is obese Vital signs as documented. Head exam is unremarkable. No scleral icterus . Neck is without jugular venous distension, thyromegaly, or carotid bruits. Lungs intubated and on mechanical ventilator Cardiac exam reveals regular rate and Rhythm. Abdominal exam reveals normal bowel sounds, nontender, no organomegaly. Extremities are nonedematous and both femoral and pedal pulses are normal. 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 - Constitutional Vitals: Temp Pulse Resp BP Pulse Ox 97.3 F L 106 H 24 136/100 96 01/28/20 04:00 01/28/20 07:05 01/28/20 06:00 01/28/20 07:05 01/28/20 08:55 General appearance: Present: well-nourished, obese, other (Tracheostomy on vent) HEART Score - HEART Score Troponin: Troponin T < 0.010 ng/mL (0.00-0.029) 01/19/20 01:35 Results - Labs CBC & Chem 7: 01/28/20 04:37 01/27/20 04:47 Labs: Laboratory Last Values WBC 8.9 K/mm3 (4.5-11.0) 01/25/20 04:25 RBC 3.50 M/mm3 (3.65-5.03) L 01/25/20 04:25 Hgb 9.4 gm/dl (11.8-15.2) L 01/28/20 04:37 Hct 29.9 % (35.5-45.6) L 01/28/20 04:37 MCV 80 fl (84-94) L 01/25/20 04:25 MCH 25 pg (28-32) L 01/25/20 04:25 MCHC 31 % (32-34) L 01/25/20 04:25 RDW 18.2 % (13.2-15.2) H 01/25/20 04:25 Plt Count 228 K/mm3 (140-440) 01/28/20 04:37 Lymph % (Auto) 24.4 % (13.4-35.0) 01/25/20 04:25 [place] % (Auto) 8.5 % (0.0-7.3) H 01/25/20 04:25 Eos % (Auto) 3.6 % (0.0-4.3) 01/25/20 04:25 Baso % (Auto) 0.7 % (0.0-1.8) 01/25/20 04:25 Lymph # (Auto) 2.2 K/mm3 (1.2-5.4) 01/25/20 04:25 [place] # (Auto) 0.8 K/mm3 (0.0-0.8) 01/25/20 04:25 Eos # (Auto) 0.3 K/mm3 (0.0-0.4) 01/25/20 04:25 Baso # (Auto) 0.1 K/mm3 (0.0-0.1) 01/25/20 04:25 Add Manual Diff Complete 12/19/19 11:32 Total Counted 100 12/19/19 11:32 Seg Neutrophils % 62.8 % (40.0-70.0) 01/25/20 04:25 Seg Neuts % (Manual) 82.0 % (40.0-70.0) H 12/19/19 11:32 Band Neutrophils % 0 % 12/19/19 11:32 Lymphocytes % (Manual) 10.0 % (13.4-35.0) L 12/19/19 11:32 Reactive Lymphs % (Man) 0 % 12/19/19 11:32 Monocytes % (Manual) 6.0 % (0.0-7.3) 12/19/19 11:32 Eosinophils % (Manual) 2.0 % (0.0-4.3) 12/19/19 11:32 Basophils % (Manual) 0 % (0.0-1.8) 12/19/19 11:32 Metamyelocytes % 0 % 12/19/19 11:32 Myelocytes % 0 % 12/19/19 11:32 Promyelocytes % 0 % 12/19/19 11:32 Blast Cells % 0 % 12/19/19 11:32 Nucleated RBC % 1.0 % (0.0-0.9) H 12/19/19 11:32 Seg Neutrophils # 5.6 K/mm3 (1.8-7.7) 01/25/20 04:25 Seg Neutrophils # Man 12.0 K/mm3 (1.8-7.7) H 12/19/19 11:32 Band Neutrophils # 0.0 K/mm3 12/19/19 11:32 Lymphocytes # (Manual) 1.5 K/mm3 (1.2-5.4) 12/19/19 11:32 Abs React Lymphs (Man) 0.0 K/mm3 12/19/19 11:32 Monocytes # (Manual) 0.9 K/mm3 (0.0-0.8) H 12/19/19 11:32 Eosinophils # (Manual) 0.3 K/mm3 (0.0-0.4) 12/19/19 11:32 Basophils # (Manual) 0.0 K/mm3 (0.0-0.1) 12/19/19 11:32 Metamyelocytes # 0.0 K/mm3 12/19/19 11:32 Myelocytes # 0.0 K/mm3 12/19/19 11:32 Promyelocytes # 0.0 K/mm3 12/19/19 11:32 Blast Cells # 0.0 K/mm3 12/19/19 11:32 WBC Morphology Not Reportable 12/19/19 11:32 Hypersegmented Neuts Not Reportable 12/19/19 11:32 Hyposegmented Neuts Not Reportable 12/19/19 11:32 Hypogranular Neuts Not Reportable 12/19/19 11:32 Smudge Cells Not Reportable 12/19/19 11:32 Toxic Granulation Not Reportable 12/19/19 11:32 Toxic Vacuolation Not Reportable 12/19/19 11:32 Dohle Bodies Not Reportable 12/19/19 11:32 Pelger-Huet Anomaly Not Reportable 12/19/19 11:32 Hector Rods Not Reportable 12/19/19 11:32 Platelet Estimate Consistent w auto 12/19/19 11:32 Clumped Platelets Not Reportable 12/19/19 11:32 Plt Clumps, EDTA Not Reportable 12/19/19 11:32 Large Platelets Not Reportable 12/19/19 11:32 Giant Platelets Not Reportable 12/19/19 11:32 Platelet Satelliting Not Reportable 12/19/19 11:32 Plt Morphology Comment Not Reportable 12/19/19 11:32 RBC Morphology Not Reportable 12/19/19 11:32 Dimorphic RBCs Not Reportable 12/19/19 11:32 Polychromasia Not Reportable 12/19/19 11:32 Hypochromasia Few 12/19/19 11:32 Poikilocytosis Not Reportable 12/19/19 11:32 Anisocytosis 1+ 12/19/19 11:32 Microcytosis Few 12/19/19 11:32 Macrocytosis Few 12/19/19 11:32 Spherocytes Not Reportable 12/19/19 11:32 Pappenheimer Bodies Not Reportable 12/19/19 11:32 Sickle Cells Not Reportable 12/19/19 11:32 Target Cells Not Reportable 12/19/19 11:32 Tear Drop Cells Not Reportable 12/19/19 11:32 Ovalocytes Not Reportable 12/19/19 11:32 Helmet Cells Not Reportable 12/19/19 11:32 Gottlieb[place] Bodies Not Reportable 12/19/19 11:32 [place] Rings Not Reportable 12/19/19 11:32 [place] Cells Not Reportable 12/19/19 11:32 Bite Cells Not Reportable 12/19/19 11:32 Crenated Cell Not Reportable 12/19/19 11:32 Elliptocytes Not Reportable 12/19/19 11:32 Acanthocytes (Spur) Not Reportable 12/19/19 11:32 Rouleaux Not Reportable 12/19/19 11:32 Hemoglobin C Crystals Not Reportable 12/19/19 11:32 Schistocytes Not Reportable 12/19/19 11:32 Malaria parasites Not Reportable 12/19/19 11:32 Clifford Bodies Not Reportable 12/19/19 11:32 Hem Pathologist Commnt No 12/19/19 11:32 PT 16.9 Sec. (12.2-14.9) H 01/22/20 09:58 INR 1.34 (0.87-1.13) H 01/22/20 09:58 APTT 31.5 Sec. (24.2-36.6) 01/22/20 09:58 Heparin Anti-Xa Level 1.34 U.I./ml (0.3-0.7) H 01/22/20 04:45 ABG pH 7.447 pH Units (7.350-7.450) 01/25/20 21:02 POC ABG pCO2 45.6 mmHg (32.0-48.0) 01/12/20 13:58 ABG pCO2 47.0 mm Hg 01/25/20 21:02 POC ABG pO2 76.6 mmHg (83-108) L 01/12/20 13:58 ABG pO2 57.5 mm Hg (80.0-90.0) L 01/25/20 21:02 POC ABG HCO3 31.2 01/12/20 13:58 ABG HCO3 31.7 mmol/L (20.0-26.0) H 01/25/20 21:02 ABG O2 Saturation 90.3 % (95.0-99.0) L 01/25/20 21:02 ABG O2 Content 16.0 (0.0-44) 01/25/20 21:02 POC ABG Base Excess 6.5 01/12/20 13:58 ABG Base Excess 6.6 mmol/L (-2.0-3.0) H 01/25/20 21:02 ABG Hemoglobin 13.0 gm/dl (14.0-18.0) L 01/25/20 21:02 ABG Oxyhemoglobin 84 (94-98) L 12/22/19 03:22 ABG Carboxyhemoglobin 2.5 % (0.0-5.0) 01/25/20 21:02 ABG Methemoglobin 0.6 % (0.0-1.5) 01/25/20 21:02 ABG Sodium 136.8 mmol/L (136.0-145.0) 01/12/20 13:58 ABG Potassium 3.7 mmol/L (3.40-4.50) 01/12/20 13:58 ABG Chloride 103.0 mmol/L (98-107) 01/12/20 13:58 ABG Glucose 99 mg/dL (65-95) H 01/12/20 13:58 Oxyhemoglobin 87.5 % (95.0-99.0) L 01/25/20 21:02 Carboxyhemoglobin 0.7 (0.5-1.5) 12/22/19 03:22 FiO2 40 % 01/25/20 21:02 Sodium 143 mmol/L (137-145) 01/27/20 04:47 Potassium 3.9 mmol/L (3.6-5.0) 01/27/20 04:47 Chloride 100.0 mmol/L (98-107) 01/27/20 04:47 Carbon Dioxide 29 mmol/L (22-30) 01/27/20 04:47 Anion Gap 18 mmol/L 01/27/20 04:47 BUN 30 mg/dL (9-20) H 01/27/20 04:47 Creatinine 0.7 mg/dL (0.8-1.3) L 01/27/20 04:47 Estimated GFR > 60 ml/min 01/27/20 04:47 BUN/Creatinine Ratio 43 % 01/27/20 04:47 Glucose 135 mg/dL (75-100) H 01/27/20 04:47 POC Glucose 169 mg/dL (70-105) H 01/28/20 05:55 Lactic Acid 2.50 mmol/L (0.7-2.0) H* 11/24/19 10:37 Magnesium 2.60 mg/dL (1.7-2.3) H 12/07/19 12:41 Calcium 9.2 mg/dL (8.4-10.2) 01/27/20 04:47 Ferritin 84.4 ng/mL (30.0-300.0) 11/24/19 04:53 Direct Bilirubin < 0.2 mg/dL (0-0.2) 12/08/19 03:55 Indirect Bilirubin 0.2 mg/dL 12/08/19 03:55 Phosphorus 3.40 mg/dL (2.5-4.5) 01/12/20 12:01 Total Bilirubin 0.50 mg/dL (0.1-1.2) 01/12/20 00:23 Total Creatine Kinase 141 units/L (55-170) 11/24/19 02:53 CK-MB (CK-2) 4.3 ng/mL (0.0-4.0) H 11/24/19 02:53 AST 16 units/L (5-40) 01/12/20 00:23 ALT 22 units/L (7-56) 01/12/20 00:23 CK-MB (CK-2) Rel Index 3.0 (0-4) 11/24/19 02:53 Alkaline Phosphatase 59 units/L (35-129) 01/12/20 00:23 C-Reactive Protein 8.50 mg/dL (0.00-1.30) H 12/01/19 12:16 Lactate Dehydrogenase 228 units/L (91-180) H 12/19/19 04:45 Troponin T < 0.010 ng/mL (0.00-0.029) 01/19/20 01:35 NT-Pro-B Natriuret Pep 3866 pg/mL (0-900) H 01/01/20 10:40 Total Protein 6.3 g/dL (6.3-8.2) 01/12/20 00:23 Albumin 2.6 g/dL (3.9-5) L 01/12/20 00:23 Albumin/Globulin Ratio 0.7 % 01/12/20 00:23 Procalcitonin 0.76 ng/mL (<0.15) 01/01/20 10:40 Arterial Blood Glucose 99 mg/dL (65-95) H 01/12/20 13:58 Arterial Blood Ionized Calcium 4.8 mg/dL (4.6-5.3) 01/12/20 13:58 Urine Color Cecy (Yellow) 12/31/19 18:04 Urine Turbidity Clear (Clear) 12/31/19 18: Urine pH 5.0 (5.0-7.0) 12/31/19 18:04 Ur Specific [place] 1.023 (1.003-1.030) 12/31/19 18:04 Urine Protein <15 mg/dl mg/dL (Negative) 12/31/19 18:04 Urine Glucose (UA) Neg mg/dL (Negative) 12/31/19 18:04 Urine Ketones Neg mg/dL (Negative) 12/31/19 18:04 Urine Blood Neg (Negative) 12/31/19 18:04 Urine Bacteria (Auto) 1+ /HPF (Negative) 12/03/19 06:03 Urine Nitrite Neg (Negative) 12/31/19 18:04 Urine Bilirubin Neg (Negative) 12/31/19 18:04 Urine Urobilinogen 4.0 mg/dL (<2.0) 12/31/19 18:04 Ur Leukocyte Esterase Neg (Negative) 12/31/19 18:04 Urine WBC (Auto) 2.0 /HPF (0.0-6.0) 12/31/19 18:04 Urine RBC (Auto) 3.0 /HPF (0.0-6.0) 12/31/19 18:04 U Epithel Cells (Auto) 2.0 /HPF (0-13.0) 12/31/19 18:04 Urine Mucus 1+ /HPF 12/31/19 18:04 Vancomycin Trough 14.2 ug/mL (5.0-20.0) 12/13/19 15:01 Coronavirus (PCR) Negative (Negative) 12/29/19 10:07 Blood Type O POSITIVE 01/21/20 13:00 Antibody Screen Negative 01/21/20 13:00 - Diagnostic Impressions Diagnostic Impressions: Echocardiogram 11/29/19 07:37 Transthoracic Echocardiogram Indication: CHF BP: 116/72 HR: 33 Conclusions *The study is technically limited due to poor acoustic windows. *Global left ventricular systolic function is normal. *The estimated ejection fraction is 50-55%. *Mild concentric left ventricular hypertrophy is observed. *There is trace of mitral regurgitation. *There is mild tricuspid regurgitation. Findings Procedure Info: The study quality is poor. The study is technically limited due to poor acoustic windows. The study is technically limited due to patient body habitus. Left Ventricle: The left ventricular chamber size is normal. Mild concentric left ventricular hypertrophy is observed. Global left ventricular systolic function is normal. The estimated ejection fraction is 50-55%. Left Atrium: The left atrial chamber size is normal. Right Ventricle: The right ventricular cavity size is normal. Right Atrium: The right atrial cavity size is normal. Aortic Valve: The aortic valve leaflets are moderately thickened. There is trace of aortic regurgitation. There is no evidence of aortic stenosis. Mitral Valve: The mitral valve leaflets are mildly thickened. There is trace of mitral regurgitation. There is no evidence of mitral stenosis. Tricuspid Valve: There is mild tricuspid regurgitation. No pulmonary hypertension is noted. Pulmonic Valve: There is trace pulmonic regurgitation. Pericardium: There is no pericardial effusion. Aorta: There is no dilatation of the aortic root. Venous: The inferior vena cava appears normal in size. Contrast: Definity was used to optimize study. Intravenous contrast was used to enhance endocardial border definition. Measurements Chambers 2D Name Value Normal Range Ao root diameter (2D) 3.4 cm (2 - 3.7) Aortic Valve Name Value Normal Range AV Vmax 0.98 m/sec - AV VTI 16.76 cm - AV peak gradient 3.83 mmHg - AV mean gradient 2.57 mmHg - LVOT diameter 3.11 cm - LVOT Vmax 0.68 m/sec - LVOT VTI 11.52 cm - LVOT peak gradient 1.84 mmHg - LVOT mean gradient 1.27 mmHg - SV LVOT 87.31 ml - MALOU (continuity Vmax) 5.24 cm2 - MALOU (continuity VTI) 5.21 cm2 - Tricuspid Valve Name Value Normal Range IVC diameter 2.24 cm (1.2 - 2.3) Hoffman/IV: Voiding Method Condom Catheter IV Catheter Type [Right INT / Saline Lock Forearm] IV Catheter Type [Right Hand] Peripheral IV IV Catheter Type [Right Upper INT / Saline Lock arm] IV Catheter Type [Left Upper Mid-line arm] IV Catheter Type [Left Forearm INT / Saline Lock ] IV Catheter Type [Left Hand] INT / Saline Lock IV Catheter Type [Left Wrist] INT / Saline Lock IV Catheter Type [Right Peripheral IV Antecubital] Active Medications - Current Medications Current Medications: Generic Name Dose Route Start Last Admin Trade Name Freq PRN Reason Stop Dose Admin Acetaminophen 650 mg 12/31/19 11:43 01/14/20 08:27 Tylenol FEEDTUBE 650 mg Q6H PRN Administration Pain, Mild (1-3) Amiodarone HCl 200 mg 01/21/20 06:00 01/27/20 09:37 Cordarone PO 200 mg QDAY CAR Administration Lipase/Protease/Amylase 1 each 01/09/20 12:[address] 10,500 Unit FEEDTUBE PRN PRN For Clogged Feeding Tube Apixaban 5 mg 01/22/20 22:00 01/27/20 21:32 Eliquis PO 5 mg Q12HR CAR Administration Protocol Atorvastatin Calcium 40 mg 01/20/20 22:00 01/27/20 21:33 Lipitor PO 40 mg QHS CAR Administration Bisacodyl 10 mg 01/06/20 13:00 01/27/20 09:37 Dulcolax NV 10 mg DAILY CAR Administration Clopidogrel Bisulfate 75 mg 01/21/20 06:00 01/27/20 09:37 Plavix PO 75 mg QDAY CAR Administration Docusate Sodium 100 mg 12/02/19 22:00 01/27/20 21:32 Colace FEEDTUBE 100 mg BID CAR Administration Famotidine 20 mg 01/12/20 10:00 01/27/20 21:31 Pepcid PO 20 mg BID CAR Administration Glycopyrrolate 2 mg 01/26/20 20:00 01/27/20 23:34 Glycopyrrolate PO Not Given TID CAR Haloperidol Lactate 5 mg 12/25/19 10:00 01/22/20 11:35 Haldol IV 5 mg Q6H PRN Administration Unrespon. to mult. doses BZD's Hydrophilic Ointment 1 applic 01/17/20 15:26 Vaseline Lip Therapy TP DIRECT PRN Dry Lips Lorazepam 2 mg 12/25/19 10:00 01/28/20 04:34 Ativan IV 2 mg Q6H PRN Administration AGITATION Magnesium Hydroxide 30 ml 01/14/20 13:35 01/22/20 11:32 Milk Of Magnesia PO 30 ml QDAY PRN Administration Constip unreliev by MOM/or NPO Metoprolol Tartrate 5 mg 01/11/20 08:00 01/22/20 02:10 Metoprolol IV 5 mg Q6H PRN Administration SEE INSTRUCTIONS Metoprolol Tartrate 25 mg 01/11/20 13:00 01/28/20 07:05 Metoprolol PO 25 mg Q6H CAR Administration Morphine Sulfate 2 mg 01/06/20 15:41 01/27/20 18:48 Morphine IV 2 mg Q4H PRN Administration Pain, Moderate (4-6) Nitroglycerin 0.4 mg 01/19/20 21:09 01/20/20 03:03 Nitrostat SL 0.4 mg .Q5MIN PRN Administration Chest Pain Nitroglycerin 0.4 mg 01/21/20 06:00 01/28/20 05:14 Nitro Dur TD 0.4 mg QDAY@0600 CAR Administration Ondansetron HCl 4 mg 01/05/20 14:37 01/24/20 10:53 Zofran IV 4 mg Q8H PRN Administration Nausea And Vomiting Polyethylene Glycol 17 gm 12/04/19 22:00 01/27/20 21:29 Miralax 3350 PO 17 gm QHS CAR Administration Quetiapine Fumarate 300 mg 01/13/20 22:00 01/27/20 21:32 Seroquel PO 300 mg BID CAR Administration Scopolamine 1 each 01/07/20 20:00 01/07/20 21:08 Transderm-Scop TD 1 each Q72HR CAR Administration Simple Syrup 15 ml 01/09/20 12:01 Simple Syrup FEEDTUBE PRN PRN Hypoglycemia Simple Syrup 30 ml 01/09/20 12:01 Simple Syrup FEEDTUBE PRN PRN Hypoglycemia Sodium Bicarbonate 325 mg 01/09/20 12:01 Sodium Bicarbonate FEEDTUBE PRN PRN For Clogged Feeding Tube Sodium Chloride 10 ml 11/24/19 10:00 01/27/20 09:36 Sodium Chloride Flush Syringe 10 Ml IV 10 ml BID CAR Administration Tamsulosin HCl 0.8 mg 12/20/19 22:00 01/27/20 21:31 Flomax PO 0.8 mg QHS CAR Administration Nutrition/Malnutrition Assess - Dietary Evaluation Nutrition/Malnutrition Findings: Nutrition Notes Start: 11/24/19 12:22 Freq: Status: Active Protocol: Document 01/26/20 12:32 HEATHER (Rec: 01/26/20 13:06 HEATHER [id number]) Co-Sign 01/26/20 12:32 MK Nutrition Notes Initial or Follow up Reassessment Current Diagnosis Coronary Artery Disease,Heart Failure,Respiratory Failure, Stroke,Hyperlipidemia Other Pertinent Diagnosis Partial SBO, pneu Current Diet Vital HP 70ml/hr Labs/Tests Reviewed Pertinent Medications Lasix Height 6 ft 2 in Weight 117 kg [place] Body Weight (kg) 86.36 BMI 33.1 Weight Status Overweight Subjective/Other Information F/u TF and wt. 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 Yes Is Patient Ambulatory and/or Out of Bed No [facility] 2446.344 Kcal/Kg value to use for calculation 18 Approximate Energy Requirements Using 2106 kcal/Kg Calculation Used for Recommendations Kcal/kg Additional Notes Protein needs are up to 162g ( 2g/kg IBW) Fluid needs are 1.5L Nutrition Intervention Change Diet Order: Change TF Nutrition Support: Vital AF 1.2 at 75ml/hr. Flush 100ml q4h Kcal 2,160 Protein (gm) 135 Fluid (mL) 1,460 Goal #1 Meet at least 75% of pt's energy and protein needs Goal #2 Weight maintenance Anticipated Discharge Needs: unable to determine Follow-Up By: 01/29/20 Additional Comments F/u TF tolerance
--- NOTE | 2020-01-28 09:08 | Progress Note ---
Assessment and Plan Chest pain, resolved LHC done 01/22/20 widely patent previous LAD stent. We found mild nonobstructive atherosclerosis of the mid right coronary artery. Otherwise the rest of the coronary system was without significant atherosclerosis. LVEF 40 to 45%. There was some hypokinesis of the basal inferior wall suggestive of previous or recent infarct. ECG done 01/19/20 shows sinus rhythm with low voltage QRS and subtle ST segment elevations in the inferolateral leads that suggested possible concern for an acute injury at that time. Atrial fibrillation, paroxysmal on amiodarone and metoprolol currently in sinus rhythm Ischemic Cardiomyopathy re-echo this presentation reports an LVEF 40-45%. Hx of CAD Multifocal pneumonia negative COVID-19 test x 3 Chronic Respiratory failure s/p trach History of COPD Acute PE/DVT -on Eliquis Anemia Partial SBO vs ileus Recommend: Continue guideline directed medical therapy for coronary artery disease and paroxysmal atrial fibrillation. Otherwise, conservative cardiac management. Subjective Date of service: 01/28/20 Principal diagnosis: Ac hypoxemic resp failure; Pneumonia; PUI COVID-19; CHF; COPD; HTN Interval history: Patient is alert, resting in bed comfortably. No interval cardiac changes. Objective Vital Signs Temp Pulse Pulse Resp BP Pulse Ox Pulse Ox 01/28/20 08:55 96 01/28/20 08:54 94 01/28/20 08:00 98.6 F 01/28/20 07:05 106 H 136/100 01/28/20 06:00 106 H 24 129/96 94 01/28/20 05:14 102 H 133/90 01/28/20 05:00 104 H 23 133/90 94 01/28/20 04:00 97.3 F L 105 H 105 H 24 126/88 86 01/28/20 03:00 102 H 21 134/83 95 01/28/20 02:00 109 H 25 H 129/92 94 01/28/20 01:01 99 H 25 H 109/75 97 01/28/20 01:00 109 H 129/92 01/28/20 00:43 98 01/28/20 00:00 97.8 F 103 H 103 H 22 118/78 97 01/27/20 23:29 98 H 22 117/70 97 01/27/20 23:00 104 H 25 H 117/70 95 01/27/20 22:01 112 H 31 H 114/84 11/04/20 21:23 97 01/27/20 21:00 98 H 25 H 116/85 01/27/20 20:00 98.6 F 103 H 103 H 22 120/86 96 01/27/20 19:00 101 H 23 128/84 01/27/20 18:28 102 H 118/80 01/27/20 18:00 98 H 27 H 118/80 01/27/20 17:00 100 H 21 114/81 01/27/20 16:00 97.3 F L 94 H 93 H 22 119/72 96 01/27/20 15:25 99 01/27/20 15:24 97 01/27/20 15:00 100 H 21 122/88 97 01/27/20 14:00 96 H 22 126/86 99 01/27/20 13:00 95 H 21 112/68 98 01/27/20 12:00 97.8 F 102 H 104 H 24 112/68 98 01/27/20 11:17 95 01/27/20 11:00 97 H 20 104/70 98 01/27/20 10:00 98 H 21 119/86 100 - Physical Examination General: Other (awake, s/p trach) HEENT: Positive: PERRL Cardiac: Positive: Reg Rate and Rhythm Lungs: Positive: Decreased Breath Sounds Neuro: Positive: Weakness Extremities: Absent: edema - Labs and Meds CBC 01/28/20 Range/Units 04:37 Hgb 9.4 L (11.8-15.2) gm/dl Hct 29.9 L (35.5-45.6) % Plt Count 228 (140-440) K/mm3 - Allied health notes Allied health notes reviewed: nursing
[2020-01-28] MEDS: DOCUSATE SODIUM 100 MG/10 ML ORAL LIQD FEEDTUBE SCH ×2 (10:00→23:14)
[2020-01-28] MEDS: FAMOTIDINE 20 MG TAB PO SCH ×2 (10:19→21:52)
[2020-01-28] MEDS: CLOPIDOGREL 75 MG TAB PO SCH (10:19)
[2020-01-28] MEDS: GLYCOPYRROLATE 2 MG TAB PO SCH ×3 (10:19→21:51)
[2020-01-28] MEDS: AMIODARONE 200 MG TAB PO SCH (10:19)
[2020-01-28] MEDS: APIXABAN 5 MG TAB PO SCH ×2 (10:19→21:51)
[2020-01-28] MEDS: QUEtiapine 100 MG TAB PO SCH ×2 (10:20→21:50)
[2020-01-28] MEDS: ONDANSETRON 4 MG/2 ML INJ IV PRN (10:56)
[2020-01-28] MEDS: MORPHINE 2 MG/1 ML INJ IV PRN (13:37)
--- NOTE | 2020-01-28 14:54 | Progress Note ---
Assessment and Plan Acute hypoxemic respiratory failure Bilateral pneumonia, community acquired. Acute LLL branch P.E. Acute DVT Person under investigation for COVID-19 infection. Acute congestive heart failure exacerbation. History of cerebrovascular accident. Acute chronic obstructive pulmonary disease exacerbation. Hypertension and hypertensive urgency at presentation. History of arthritis. Leukocytosis. Lactic acidosis. Oropharyngeal dysphagia - RN asked to do dysphagia screen and ok for supervised ice-chips trial - will downgrade to IMCU but watching closely - continue T-piece trials and advance RTC as tolerated - resumed diuresis with lasix 40mg IV bid (follow electrolytes and correct as necessary) - continue mucomyst nebs re: secretions - continue full anticoagulation with Apixaban - continue care as below otherwise; - continue daily SAT's and SBT assessment as tolerated - continue seroquel for anxiolysis / delirium - COVID isolation per facility protocol - prn diuresis while following electrolytes / I's & O's - continue to wean oxygen for O2 sat's > 92% - continue bronchodilators with routine trach care and pulmonary hygiene per RT - continue Robinul & Scopolamine for secretion control - VAP bundle addressed (Aspiration precautions, HOB >40) - continue to wean per pulmonary driven protocols - sedation target is RASS 0 to -1 - continue prn analgesia per CPOT score - follow clinically re: fever curves / trend WBC - Avoid delirium (no benzodiazepines if they can be avoided) - Maintain sleep-wake cycle - enteral nutrition at goal rate as tolerated - continue accucheck's with glycemic control per SSI for target blood glucose goal of 140-180 mg/dL while critically ill; Avoid hypoglycemia - for VTE he is on IV Heparin - continue stress ulcer prophylaxis with Famotidine - continue mobility protocols for pressure ulcer prophylaxis - continue fall precautions - continue wound care management per RN / WCT - Supportive transfusions to keep HgB>7g/dL - CXR's and ABG's prn - Continue to monitor neurologic function - Continue chronic home medications - Continue all supportive care ........ re-evaluate in am & prn CONDITION: CRITICAL PROGNOSIS: GUARDED CODE STATUS: FULL CODE The high probability of a clinically significant, sudden or life threatening deterioration of the [Respiratory, cardiovascular & neurological] system(s) required my full and direct attention, intervention and personal management. The aggregate critical care time was [32] minutes without overlap. Time includes spent on [x] Data Review and interpretation [x] Patient assessment and monitoring of vital signs [x] Documentation [x] Medication orders and management Subjective Date of service: 01/28/20 Principal diagnosis: Ac hypoxemic resp failure; Pneumonia; PUI COVID-19; CHF; COPD; HTN Interval history: Patient is seen today for: Acute hypoxemic respiratory failure; Adan. Pneumonia (CAP); PUI COVID-19 infection; AE-CHF; AE-COPD; H/O CVA; HTN Seen and examined at bedside; 24 hour events reviewed; nursing and respiratory care staff consulted; no adverse overnight events reported to me; resting peacefully in bed; stayed off MVS overnight but breathing still somewhat labored; thirsty; No N/V/F/C Objective Vital Signs - 12hr 01/28/20 01/28/20 01/28/20 03:00 04:00 05:00 Temperature 97.3 F L Pulse Rate 102 H 105 H 104 H Pulse Rate [ 105 H From Monitor] Respiratory 21 24 23 Rate Blood Pressure 134/83 126/88 133/90 O2 Sat by Pulse 95 86 94 Oximetry O2 Sat by Pulse Oximetry [ Assessment] 01/28/20 01/28/20 01/28/20 05:14 06:00 07:01 Temperature Pulse Rate 102 H 106 H 106 H Pulse Rate [ From Monitor] Respiratory 24 22 Rate Blood Pressure 133/90 129/96 136/100 O2 Sat by Pulse 94 100 Oximetry O2 Sat by Pulse Oximetry [ Assessment] 01/28/20 01/28/20 01/28/20 07:05 08:00 08:01 Temperature 98.6 F Pulse Rate 106 H 118 H Pulse Rate [ From Monitor] Respiratory 27 H Rate Blood Pressure 136/100 118/79 O2 Sat by Pulse 95 Oximetry O2 Sat by Pulse Oximetry [ Assessment] 01/28/20 01/28/20 01/28/20 08:54 08:55 09:00 Temperature Pulse Rate 110 H Pulse Rate [ From Monitor] Respiratory 18 Rate Blood Pressure 108/85 O2 Sat by Pulse 94 98 Oximetry O2 Sat by Pulse 96 Oximetry [ Assessment] 01/28/20 01/28/20 01/28/20 10:00 11:27 12:00 Temperature 98.5 F Pulse Rate 100 H Pulse Rate [ From Monitor] Respiratory 26 H Rate Blood Pressure 119/92 O2 Sat by Pulse 95 95 Oximetry O2 Sat by Pulse Oximetry [ Assessment] 01/28/20 13:36 Temperature Pulse Rate 99 H Pulse Rate [ From Monitor] Respiratory Rate Blood Pressure 105/61 O2 Sat by Pulse Oximetry O2 Sat by Pulse Oximetry [ Assessment] Constitutional: appears uncomfortable, other (elelelderly and obese male, normocephalic with mildly increased respiratory effort at rest) Eyes: non-icteric ENT: oropharynx moist, other (+ midline tracheostomy) Neck: supple, no JVD Effort: mildly labored Ascultation: Bilateral: diminished breath sounds, rhonchi Percussion: Bilateral: not dull Cardiovascular: irregular rhythm, other (S1,S2) Gastrointestinal: normoactive bowel sounds, soft, non-tender, non-distended (p rotuberant), other (protuberant; PEG in place) Integumentary: normal Extremities: no cyanosis, pulses normal, no ischemia or petechiae, edema (bilateral upper ) Neurologic: non-focal exam (moves extremities), pupils equal and round, CN II- XII normal, motor strength normal and (moves all extremities) Psychiatric: mood appropriate, affect normal CBC and BMP: 01/28/20 04:37 01/27/20 04:47 ABG, PT/INR, D-dimer: ABG ABG pH 7.447 pH Units (7.350-7.450) 01/25/20 21:02 POC ABG pCO2 45.6 mmHg (32.0-48.0) 01/12/20 13:58 ABG pCO2 47.0 mm Hg 01/25/20 21:02 POC ABG pO2 76.6 mmHg (83-108) L 01/12/20 13:58 ABG pO2 57.5 mm Hg (80.0-90.0) L 01/25/20 21:02 POC ABG HCO3 31.2 01/12/20 13:58 ABG O2 Saturation 90.3 % (95.0-99.0) L 01/25/20 21:02 PT/INR, D-dimer PT 16.9 Sec. (12.2-14.9) H 01/22/20 09:58 INR 1.34 (0.87-1.13) H 01/22/20 09:58 Abnormal lab findings: Abnormal Labs 11/24/19 11/24/19 11/24/19 02:53 02:53 03:45 WBC 14.3 H RBC Hgb Hct MCHC RDW 17.2 H MCV MCH Lymph % (Auto) [place] % (Auto) [place] # Eos # Lymph # (Auto) [place] # (Auto) Eos # (Auto) Seg Neutrophils % Seg Neuts % (Manual) Baso # (Auto) Lymphocytes % (Manual) Monocytes % (Manual) Eosinophils % (Manual) Basophils % (Manual) Seg Neutrophils # Seg Neutrophils # Man 8.3 H Lymphocytes # (Manual) Monocytes # (Manual) 0.9 H Eosinophils # (Manual) Nucleated RBC % Basophils # (Manual) PT INR APTT Heparin Anti-Xa Level ABG pH 7.313 L POC ABG pO2 ABG pO2 102.8 H ABG HCO3 ABG O2 Saturation ABG Base Excess -2.9 L POC ABG pCO2 ABG Hemoglobin ABG Oxyhemoglobin ABG Glucose Oxyhemoglobin 93.9 L Sodium Potassium Chloride Carbon Dioxide BUN Creatinine Glucose 195 H POC Glucose Lactic Acid Calcium Phosphorus Magnesium AST ALT Lactate Dehydrogenase CK-MB (CK-2) 4.3 H C-Reactive Protein NT-Pro-B Natriuret Pep 1181 H Total Protein Albumin Arterial Blood Glucose Urine WBC (Auto) 11/24/19 11/24/19 11/24/19 04:53 04:53 10:37 WBC RBC Hgb Hct MCHC RDW MCV MCH Lymph % (Auto) [place] % (Auto) [place] # Eos # Lymph # (Auto) [place] # (Auto) Eos # (Auto) Seg Neutrophils % Seg Neuts % (Manual) Baso # (Auto) Lymphocytes % (Manual) Monocytes % (Manual) Eosinophils % (Manual) Basophils % (Manual) Seg Neutrophils # Seg Neutrophils # Man Lymphocytes # (Manual) Monocytes # (Manual) Eosinophils # (Manual) Nucleated RBC % Basophils # (Manual) PT INR APTT Heparin Anti-Xa Level ABG pH POC ABG pO2 ABG pO2 ABG HCO3 ABG O2 Saturation ABG Base Excess POC ABG pCO2 ABG Hemoglobin ABG Oxyhemoglobin ABG Glucose Oxyhemoglobin Sodium Potassium Chloride Carbon Dioxide BUN Creatinine Glucose 162 H POC Glucose Lactic Acid 2.40 H* 2.50 H* Calcium Phosphorus Magnesium AST ALT Lactate Dehydrogenase 240 H CK-MB (CK-2) C-Reactive Protein NT-Pro-B Natriuret Pep Total Protein Albumin Arterial Blood Glucose Urine WBC (Auto) 11/24/19 11/24/19 11/24/19 12:21 14:50 19:54 WBC RBC Hgb Hct MCHC RDW MCV MCH Lymph % (Auto) [place] % (Auto) [place] # Eos # Lymph # (Auto) [place] # (Auto) Eos # (Auto) Seg Neutrophils % Seg Neuts % (Manual) Baso # (Auto) Lymphocytes % (Manual) Monocytes % (Manual) Eosinophils % (Manual) Basophils % (Manual) Seg Neutrophils # Seg Neutrophils # Man Lymphocytes # (Manual) Monocytes # (Manual) Eosinophils # (Manual) Nucleated RBC % Basophils # (Manual) PT INR APTT Heparin Anti-Xa Level ABG pH POC ABG pO2 ABG pO2 ABG HCO3 ABG O2 Saturation ABG Base Excess POC ABG pCO2 ABG Hemoglobin ABG Oxyhemoglobin ABG Glucose Oxyhemoglobin Sodium Potassium Chloride Carbon Dioxide BUN Creatinine Glucose POC Glucose 145 H 143 H 124 H Lactic Acid Calcium Phosphorus Magnesium AST ALT Lactate Dehydrogenase CK-MB (CK-2) C-Reactive Protein NT-Pro-B Natriuret Pep Total Protein Albumin Arterial Blood Glucose Urine WBC (Auto) 11/25/19 11/25/19 11/25/19 00:18 03:18 05:11 WBC 13.7 H RBC Hgb Hct MCHC RDW 17.1 H MCV MCH Lymph % (Auto) 10.8 L [place] % (Auto) 8.7 H [place] # 1.2 H Eos # Lymph # (Auto) [place] # (Auto) Eos # (Auto) Seg Neutrophils % 80.2 H Seg Neuts % (Manual) Baso # (Auto) Lymphocytes % (Manual) Monocytes % (Manual) Eosinophils % (Manual) Basophils % (Manual) Seg Neutrophils # 11.0 H Seg Neutrophils # Man Lymphocytes # (Manual) Monocytes # (Manual) Eosinophils # (Manual) Nucleated RBC % Basophils # (Manual) PT INR APTT Heparin Anti-Xa Level ABG pH 7.333 L POC ABG pO2 ABG pO2 61.2 L ABG HCO3 ABG O2 Saturation 90.2 L ABG Base Excess POC ABG pCO2 ABG Hemoglobin 13.7 L ABG Oxyhemoglobin ABG Glucose Oxyhemoglobin 88.2 L Sodium Potassium Chloride Carbon Dioxide BUN Creatinine Glucose POC Glucose 109 H Lactic Acid Calcium Phosphorus Magnesium AST ALT Lactate Dehydrogenase CK-MB (CK-2) C-Reactive Protein NT-Pro-B Natriuret Pep Total Protein Albumin Arterial Blood Glucose Urine WBC (Auto) 11/25/19 11/25/19 11/26/19 05:11 11:40 03:12 WBC RBC Hgb Hct MCHC RDW MCV MCH Lymph % (Auto) [place] % (Auto) [place] # Eos # Lymph # (Auto) [place] # (Auto) Eos # (Auto) Seg Neutrophils % Seg Neuts % (Manual) Baso # (Auto) Lymphocytes % (Manual) Monocytes % (Manual) Eosinophils % (Manual) Basophils % (Manual) Seg Neutrophils # Seg Neutrophils # Man Lymphocytes # (Manual) Monocytes # (Manual) Eosinophils # (Manual) Nucleated RBC % Basophils # (Manual) PT INR APTT Heparin Anti-Xa Level ABG pH POC ABG pO2 ABG pO2 155.1 H ABG HCO3 27.8 H ABG O2 Saturation ABG Base Excess POC ABG pCO2 ABG Hemoglobin 12.2 L ABG Oxyhemoglobin ABG Glucose Oxyhemoglobin Sodium Potassium Chloride Carbon Dioxide BUN 23 H Creatinine Glucose 110 H POC Glucose 108 H Lactic Acid Calcium Phosphorus Magnesium AST ALT Lactate Dehydrogenase CK-MB (CK-2) C-Reactive Protein NT-Pro-B Natriuret Pep Total Protein Albumin Arterial Blood Glucose Urine WBC (Auto) 11/26/19 11/26/19 11/26/19 06:17 10:43 10:43 WBC 11.4 H RBC Hgb Hct MCHC RDW 17.1 H MCV MCH Lymph % (Auto) [place] % (Auto) [place] # Eos # Lymph # (Auto) [place] # (Auto) Eos # (Auto) Seg Neutrophils % Seg Neuts % (Manual) Baso # (Auto) Lymphocytes % (Manual) Monocytes % (Manual) Eosinophils % (Manual) Basophils % (Manual) Seg Neutrophils # Seg Neutrophils # Man Lymphocytes # (Manual) Monocytes # (Manual) Eosinophils # (Manual) Nucleated RBC % Basophils # (Manual) PT INR APTT Heparin Anti-Xa Level ABG pH POC ABG pO2 ABG pO2 ABG HCO3 ABG O2 Saturation ABG Base Excess POC ABG pCO2 ABG Hemoglobin ABG Oxyhemoglobin ABG Glucose Oxyhemoglobin Sodium Potassium Chloride Carbon Dioxide BUN 29 H Creatinine Glucose POC Glucose 107 H Lactic Acid Calcium Phosphorus Magnesium AST ALT Lactate Dehydrogenase CK-MB (CK-2) C-Reactive Protein NT-Pro-B Natriuret Pep Total Protein Albumin Arterial Blood Glucose Urine WBC (Auto) 11/26/19 11/27/19 11/27/19 17:11 01:53 04:11 WBC RBC Hgb Hct MCHC RDW MCV MCH Lymph % (Auto) [place] % (Auto) [place] # Eos # Lymph # (Auto) [place] # (Auto) Eos # (Auto) Seg Neutrophils % Seg Neuts % (Manual) Baso # (Auto) Lymphocytes % (Manual) Monocytes % (Manual) Eosinophils % (Manual) Basophils % (Manual) Seg Neutrophils # Seg Neutrophils # Man Lymphocytes # (Manual) Monocytes # (Manual) Eosinophils # (Manual) Nucleated RBC % Basophils # (Manual) PT INR APTT Heparin Anti-Xa Level ABG pH POC ABG pO2 ABG pO2 ABG HCO3 29.2 H ABG O2 Saturation ABG Base Excess 3.4 H POC ABG pCO2 ABG Hemoglobin 13.3 L ABG Oxyhemoglobin ABG Glucose Oxyhemoglobin 94.5 L Sodium Potassium Chloride Carbon Dioxide BUN Creatinine Glucose POC Glucose 113 H 108 H Lactic Acid Calcium Phosphorus Magnesium AST ALT Lactate Dehydrogenase CK-MB (CK-2) C-Reactive Protein NT-Pro-B Natriuret Pep Total Protein Albumin Arterial Blood Glucose Urine WBC (Auto) 11/27/19 11/28/19 11/28/19 05:27 05:00 05:25 WBC RBC Hgb Hct MCHC RDW MCV MCH Lymph % (Auto) [place] % (Auto) [place] # Eos # Lymph # (Auto) [place] # (Auto) Eos # (Auto) Seg Neutrophils % Seg Neuts % (Manual) Baso # (Auto) Lymphocytes % (Manual) Monocytes % (Manual) Eosinophils % (Manual) Basophils % (Manual) Seg Neutrophils # Seg Neutrophils # Man Lymphocytes # (Manual) Monocytes # (Manual) Eosinophils # (Manual) Nucleated RBC % Basophils # (Manual) PT INR APTT Heparin Anti-Xa Level ABG pH POC ABG pO2 68.1 L ABG pO2 ABG HCO3 ABG O2 Saturation ABG Base Excess POC ABG pCO2 ABG Hemoglobin ABG Oxyhemoglobin 91.2 L ABG Glucose Oxyhemoglobin Sodium Potassium Chloride Carbon Dioxide BUN Creatinine Glucose POC Glucose 111 H 110 H Lactic Acid Calcium Phosphorus Magnesium AST ALT Lactate Dehydrogenase CK-MB (CK-2) C-Reactive Protein NT-Pro-B Natriuret Pep Total Protein Albumin Arterial Blood Glucose Urine WBC (Auto) 11/28/19 11/28/19 11/28/19 12:08 13:47 13:47 WBC 11.3 H RBC Hgb Hct MCHC RDW 16.1 H MCV MCH Lymph % (Auto) [place] % (Auto) 9.9 H [place] # 1.1 H Eos # Lymph # (Auto) [place] # (Auto) Eos # (Auto) Seg Neutrophils % 71.4 H Seg Neuts % (Manual) Baso # (Auto) Lymphocytes % (Manual) Monocytes % (Manual) Eosinophils % (Manual) Basophils % (Manual) Seg Neutrophils # 8.1 H Seg Neutrophils # Man Lymphocytes # (Manual) Monocytes # (Manual) Eosinophils # (Manual) Nucleated RBC % Basophils # (Manual) PT INR APTT Heparin Anti-Xa Level ABG pH POC ABG pO2 ABG pO2 ABG HCO3 ABG O2 Saturation ABG Base Excess POC ABG pCO2 ABG Hemoglobin ABG Oxyhemoglobin ABG Glucose Oxyhemoglobin Sodium Potassium Chloride Carbon Dioxide BUN 23 H Creatinine Glucose 123 H POC Glucose 112 H Lactic Acid Calcium Phosphorus Magnesium AST ALT Lactate Dehydrogenase CK-MB (CK-2) C-Reactive Protein NT-Pro-B Natriuret Pep Total Protein Albumin 3.7 L Arterial Blood Glucose Urine WBC (Auto) 11/28/19 11/29/19 11/29/19 17:26 03:55 17:04 WBC RBC Hgb Hct MCHC RDW MCV MCH Lymph % (Auto) [place] % (Auto) [place] # Eos # Lymph # (Auto) [place] # (Auto) Eos # (Auto) Seg Neutrophils % Seg Neuts % (Manual) Baso # (Auto) Lymphocytes % (Manual) Monocytes % (Manual) Eosinophils % (Manual) Basophils % (Manual) Seg Neutrophils # Seg Neutrophils # Man Lymphocytes # (Manual) Monocytes # (Manual) Eosinophils # (Manual) Nucleated RBC % Basophils # (Manual) PT INR APTT Heparin Anti-Xa Level ABG pH POC ABG pO2 ABG pO2 65.7 L ABG HCO3 28.3 H ABG O2 Saturation 93.9 L ABG Base Excess 3.6 H POC ABG pCO2 ABG Hemoglobin 13.3 L ABG Oxyhemoglobin ABG Glucose Oxyhemoglobin 91.5 L Sodium Potassium Chloride Carbon Dioxide BUN Creatinine Glucose POC Glucose 123 H 119 H Lactic Acid Calcium Phosphorus Magnesium AST ALT Lactate Dehydrogenase CK-MB (CK-2) C-Reactive Protein NT-Pro-B Natriuret Pep Total Protein Albumin Arterial Blood Glucose Urine WBC (Auto) 11/30/19 11/30/19 11/30/19 04:17 04:17 04:56 WBC 13.4 H RBC Hgb Hct MCHC RDW 15.6 H MCV MCH Lymph % (Auto) [place] % (Auto) [place] # Eos # Lymph # (Auto) [place] # (Auto) Eos # (Auto) Seg Neutrophils % Seg Neuts % (Manual) Baso # (Auto) Lymphocytes % (Manual) Monocytes % (Manual) Eosinophils % (Manual) Basophils % (Manual) Seg Neutrophils # Seg Neutrophils # Man Lymphocytes # (Manual) Monocytes # (Manual) Eosinophils # (Manual) Nucleated RBC % Basophils # (Manual) PT INR APTT Heparin Anti-Xa Level ABG pH POC ABG pO2 ABG pO2 56.3 L ABG HCO3 29.3 H ABG O2 Saturation 91.5 L ABG Base Excess 4.7 H POC ABG pCO2 ABG Hemoglobin 12.1 L ABG Oxyhemoglobin ABG Glucose Oxyhemoglobin 89.2 L Sodium 147 H Potassium Chloride Carbon Dioxide BUN 30 H Creatinine Glucose 124 H POC Glucose Lactic Acid Calcium Phosphorus Magnesium AST ALT Lactate Dehydrogenase CK-MB (CK-2) C-Reactive Protein NT-Pro-B Natriuret Pep Total Protein Albumin 3.8 L Arterial Blood Glucose Urine WBC (Auto) 11/30/19 11/30/19 11/30/19 05:51 11:54 18:17 WBC RBC Hgb Hct MCHC RDW MCV MCH Lymph % (Auto) [place] % (Auto) [place] # Eos # Lymph # (Auto) [place] # (Auto) Eos # (Auto) Seg Neutrophils % Seg Neuts % (Manual) Baso # (Auto) Lymphocytes % (Manual) Monocytes % (Manual) Eosinophils % (Manual) Basophils % (Manual) Seg Neutrophils # Seg Neutrophils # Man Lymphocytes # (Manual) Monocytes # (Manual) Eosinophils # (Manual) Nucleated RBC % Basophils # (Manual) PT INR APTT Heparin Anti-Xa Level ABG pH POC ABG pO2 ABG pO2 ABG HCO3 ABG O2 Saturation ABG Base Excess POC ABG pCO2 ABG Hemoglobin ABG Oxyhemoglobin ABG Glucose Oxyhemoglobin Sodium Potassium Chloride Carbon Dioxide BUN Creatinine Glucose POC Glucose 127 H 115 H 143 H Lactic Acid Calcium Phosphorus Magnesium AST ALT Lactate Dehydrogenase CK-MB (CK-2) C-Reactive Protein NT-Pro-B Natriuret Pep Total Protein Albumin Arterial Blood Glucose Urine WBC (Auto) 12/01/19 12/01/19 12/01/19 01:18 05:22 12:16 WBC RBC Hgb Hct MCHC RDW MCV MCH Lymph % (Auto) [place] % (Auto) [place] # Eos # Lymph # (Auto) [place] # (Auto) Eos # (Auto) Seg Neutrophils % Seg Neuts % (Manual) Baso # (Auto) Lymphocytes % (Manual) Monocytes % (Manual) Eosinophils % (Manual) Basophils % (Manual) Seg Neutrophils # Seg Neutrophils # Man Lymphocytes # (Manual) Monocytes # (Manual) Eosinophils # (Manual) Nucleated RBC % Basophils # (Manual) PT INR APTT Heparin Anti-Xa Level ABG pH POC ABG pO2 ABG pO2 ABG HCO3 ABG O2 Saturation ABG Base Excess POC ABG pCO2 ABG Hemoglobin ABG Oxyhemoglobin ABG Glucose Oxyhemoglobin Sodium Potassium 3.5 L Chloride 107.8 H Carbon Dioxide BUN 37 H Creatinine Glucose 157 H POC Glucose 118 H 148 H Lactic Acid Calcium 8.2 L D Phosphorus Magnesium AST 48 H ALT 60 H Lactate Dehydrogenase 194 H CK-MB (CK-2) C-Reactive Protein 8.50 H NT-Pro-B Natriuret Pep Total Protein 5.5 L Albumin 2.8 L Arterial Blood Glucose Urine WBC (Auto) 12/01/19 12/02/19 12/02/19 18:04 00:05 05:16 WBC 11.4 H RBC Hgb Hct MCHC RDW 15.9 H MCV MCH Lymph % (Auto) [place] % (Auto) 9.9 H [place] # 1.1 H Eos # Lymph # (Auto) [place] # (Auto) Eos # (Auto) Seg Neutrophils % 70.3 H Seg Neuts % (Manual) Baso # (Auto) Lymphocytes % (Manual) Monocytes % (Manual) Eosinophils % (Manual) Basophils % (Manual) Seg Neutrophils # 8.0 H Seg Neutrophils # Man Lymphocytes # (Manual) Monocytes # (Manual) Eosinophils # (Manual) Nucleated RBC % Basophils # (Manual) PT INR APTT Heparin Anti-Xa Level ABG pH POC ABG pO2 ABG pO2 ABG HCO3 ABG O2 Saturation ABG Base Excess POC ABG pCO2 ABG Hemoglobin ABG Oxyhemoglobin ABG Glucose Oxyhemoglobin Sodium Potassium Chloride Carbon Dioxide BUN Creatinine Glucose POC Glucose 143 H 107 H Lactic Acid Calcium Phosphorus Magnesium AST ALT Lactate Dehydrogenase CK-MB (CK-2) C-Reactive Protein NT-Pro-B Natriuret Pep Total Protein Albumin Arterial Blood Glucose Urine WBC (Auto) 12/02/19 12/02/19 12/02/19 05:16 06:03 11:52 WBC RBC Hgb Hct MCHC RDW MCV MCH Lymph % (Auto) [place] % (Auto) [place] # Eos # Lymph # (Auto) [place] # (Auto) Eos # (Auto) Seg Neutrophils % Seg Neuts % (Manual) Baso # (Auto) Lymphocytes % (Manual) Monocytes % (Manual) Eosinophils % (Manual) Basophils % (Manual) Seg Neutrophils # Seg Neutrophils # Man Lymphocytes # (Manual) Monocytes # (Manual) Eosinophils # (Manual) Nucleated RBC % Basophils # (Manual) PT INR APTT Heparin Anti-Xa Level ABG pH POC ABG pO2 ABG pO2 ABG HCO3 ABG O2 Saturation ABG Base Excess POC ABG pCO2 ABG Hemoglobin ABG Oxyhemoglobin ABG Glucose Oxyhemoglobin Sodium 146 H Potassium Chloride Carbon Dioxide BUN 28 H Creatinine Glucose 123 H POC Glucose 110 H 152 H Lactic Acid Calcium Phosphorus Magnesium AST ALT Lactate Dehydrogenase CK-MB (CK-2) C-Reactive Protein NT-Pro-B Natriuret Pep Total Protein Albumin Arterial Blood Glucose Urine WBC (Auto) 12/02/19 12/02/19 12/02/19 12:58 17:58 23:36 WBC RBC Hgb Hct MCHC RDW MCV MCH Lymph % (Auto) [place] % (Auto) [place] # Eos # Lymph # (Auto) [place] # (Auto) Eos # (Auto) Seg Neutrophils % Seg Neuts % (Manual) Baso # (Auto) Lymphocytes % (Manual) Monocytes % (Manual) Eosinophils % (Manual) Basophils % (Manual) Seg Neutrophils # Seg Neutrophils # Man Lymphocytes # (Manual) Monocytes # (Manual) Eosinophils # (Manual) Nucleated RBC % Basophils # (Manual) PT INR APTT Heparin Anti-Xa Level ABG pH POC ABG pO2 78.1 L ABG pO2 ABG HCO3 ABG O2 Saturation ABG Base Excess POC ABG pCO2 ABG Hemoglobin ABG Oxyhemoglobin ABG Glucose Oxyhemoglobin Sodium Potassium Chloride Carbon Dioxide BUN Creatinine Glucose POC Glucose 120 H 123 H Lactic Acid Calcium Phosphorus Magnesium AST ALT Lactate Dehydrogenase CK-MB (CK-2) C-Reactive Protein NT-Pro-B Natriuret Pep Total Protein Albumin Arterial Blood Glucose Urine WBC (Auto) 12/03/19 12/03/19 12/03/19 06:03 06:14 11:46 WBC RBC Hgb Hct MCHC RDW MCV MCH Lymph % (Auto) [place] % (Auto) [place] # Eos # Lymph # (Auto) [place] # (Auto) Eos # (Auto) Seg Neutrophils % Seg Neuts % (Manual) Baso # (Auto) Lymphocytes % (Manual) Monocytes % (Manual) Eosinophils % (Manual) Basophils % (Manual) Seg Neutrophils # Seg Neutrophils # Man Lymphocytes # (Manual) Monocytes # (Manual) Eosinophils # (Manual) Nucleated RBC % Basophils # (Manual) PT INR APTT Heparin Anti-Xa Level ABG pH POC ABG pO2 ABG pO2 ABG HCO3 ABG O2 Saturation ABG Base Excess POC ABG pCO2 ABG Hemoglobin ABG Oxyhemoglobin ABG Glucose Oxyhemoglobin Sodium Potassium Chloride Carbon Dioxide BUN Creatinine Glucose POC Glucose 142 H 130 H Lactic Acid Calcium Phosphorus Magnesium AST ALT Lactate Dehydrogenase CK-MB (CK-2) C-Reactive Protein NT-Pro-B Natriuret Pep Total Protein Albumin Arterial Blood Glucose Urine WBC (Auto) 8.0 H 12/03/19 12/03/19 12/04/19 15:50 17:39 00:04 WBC RBC Hgb Hct MCHC RDW MCV MCH Lymph % (Auto) [place] % (Auto) [place] # Eos # Lymph # (Auto) [place] # (Auto) Eos # (Auto) Seg Neutrophils % Seg Neuts % (Manual) Baso # (Auto) Lymphocytes % (Manual) Monocytes % (Manual) Eosinophils % (Manual) Basophils % (Manual) Seg Neutrophils # Seg Neutrophils # Man Lymphocytes # (Manual) Monocytes # (Manual) Eosinophils # (Manual) Nucleated RBC % Basophils # (Manual) PT INR APTT Heparin Anti-Xa Level ABG pH POC ABG pO2 ABG pO2 ABG HCO3 ABG O2 Saturation ABG Base Excess POC ABG pCO2 ABG Hemoglobin ABG Oxyhemoglobin ABG Glucose Oxyhemoglobin Sodium Potassium Chloride Carbon Dioxide BUN Creatinine Glucose POC Glucose 146 H 133 H Lactic Acid Calcium Phosphorus 2.40 L Magnesium AST ALT Lactate Dehydrogenase CK-MB (CK-2) C-Reactive Protein NT-Pro-B Natriuret Pep Total Protein Albumin Arterial Blood Glucose Urine WBC (Auto) 12/04/19 12/04/19 12/04/19 03:58 03:58 05:22 WBC 12.5 H RBC Hgb 11.2 L Hct 35.2 L MCHC RDW 16.0 H MCV MCH Lymph % (Auto) [place] % (Auto) 9.6 H [place] # 1.2 H Eos # 0.5 H Lymph # (Auto) [place] # (Auto) Eos # (Auto) Seg Neutrophils % Seg Neuts % (Manual) Baso # (Auto) Lymphocytes % (Manual) Monocytes % (Manual) Eosinophils % (Manual) Basophils % (Manual) Seg Neutrophils # 8.6 H Seg Neutrophils # Man Lymphocytes # (Manual) Monocytes # (Manual) Eosinophils # (Manual) Nucleated RBC % Basophils # (Manual) PT INR APTT Heparin Anti-Xa Level ABG pH POC ABG pO2 ABG pO2 ABG HCO3 ABG O2 Saturation ABG Base Excess POC ABG pCO2 ABG Hemoglobin ABG Oxyhemoglobin ABG Glucose Oxyhemoglobin Sodium 146 H Potassium Chloride 108.6 H Carbon Dioxide BUN 30 H Creatinine 0.7 L Glucose 121 H POC Glucose 132 H Lactic Acid Calcium Phosphorus Magnesium AST ALT Lactate Dehydrogenase CK-MB (CK-2) C-Reactive Protein NT-Pro-B Natriuret Pep Total Protein Albumin Arterial Blood Glucose Urine WBC (Auto) 12/04/19 12/04/19 12/05/19 13:26 18:43 00:19 WBC RBC Hgb Hct MCHC RDW MCV MCH Lymph % (Auto) [place] % (Auto) [place] # Eos # Lymph # (Auto) [place] # (Auto) Eos # (Auto) Seg Neutrophils % Seg Neuts % (Manual) Baso # (Auto) Lymphocytes % (Manual) Monocytes % (Manual) Eosinophils % (Manual) Basophils % (Manual) Seg Neutrophils # Seg Neutrophils # Man Lymphocytes # (Manual) Monocytes # (Manual) Eosinophils # (Manual) Nucleated RBC % Basophils # (Manual) PT INR APTT Heparin Anti-Xa Level ABG pH POC ABG pO2 ABG pO2 ABG HCO3 ABG O2 Saturation ABG Base Excess POC ABG pCO2 ABG Hemoglobin ABG Oxyhemoglobin ABG Glucose Oxyhemoglobin Sodium Potassium Chloride Carbon Dioxide BUN Creatinine Glucose POC Glucose 185 H 156 H 150 H Lactic Acid Calcium Phosphorus Magnesium AST ALT Lactate Dehydrogenase CK-MB (CK-2) C-Reactive Protein NT-Pro-B Natriuret Pep Total Protein Albumin Arterial Blood Glucose Urine WBC (Auto) 12/05/19 12/05/19 12/05/19 03:37 03:37 05:14 WBC 16.3 H RBC Hgb 11.4 L Hct MCHC RDW 15.6 H MCV MCH Lymph % (Auto) 9.9 L [place] % (Auto) 9.7 H [place] # 1.6 H Eos # Lymph # (Auto) [place] # (Auto) Eos # (Auto) Seg Neutrophils % 78.0 H Seg Neuts % (Manual) Baso # (Auto) Lymphocytes % (Manual) Monocytes % (Manual) Eosinophils % (Manual) Basophils % (Manual) Seg Neutrophils # 12.7 H Seg Neutrophils # Man Lymphocytes # (Manual) Monocytes # (Manual) Eosinophils # (Manual) Nucleated RBC % Basophils # (Manual) PT INR APTT Heparin Anti-Xa Level ABG pH POC ABG pO2 ABG pO2 ABG HCO3 ABG O2 Saturation ABG Base Excess POC ABG pCO2 ABG Hemoglobin ABG Oxyhemoglobin ABG Glucose Oxyhemoglobin Sodium 146 H Potassium Chloride 107.2 H Carbon Dioxide BUN 27 H Creatinine 0.7 L Glucose 171 H POC Glucose 168 H Lactic Acid Calcium Phosphorus Magnesium AST ALT Lactate Dehydrogenase CK-MB (CK-2) C-Reactive Protein NT-Pro-B Natriuret Pep Total Protein Albumin Arterial Blood Glucose Urine WBC (Auto) 12/05/19 12/05/19 12/05/19 12:31 18:10 23:58 WBC RBC Hgb Hct MCHC RDW MCV MCH Lymph % (Auto) [place] % (Auto) [place] # Eos # Lymph # (Auto) [place] # (Auto) Eos # (Auto) Seg Neutrophils % Seg Neuts % (Manual) Baso # (Auto) Lymphocytes % (Manual) Monocytes % (Manual) Eosinophils % (Manual) Basophils % (Manual) Seg Neutrophils # Seg Neutrophils # Man Lymphocytes # (Manual) Monocytes # (Manual) Eosinophils # (Manual) Nucleated RBC % Basophils # (Manual) PT INR APTT Heparin Anti-Xa Level ABG pH POC ABG pO2 ABG pO2 ABG HCO3 ABG O2 Saturation ABG Base Excess POC ABG pCO2 ABG Hemoglobin ABG Oxyhemoglobin ABG Glucose Oxyhemoglobin Sodium Potassium Chloride Carbon Dioxide BUN Creatinine Glucose POC Glucose 159 H 198 H 115 H Lactic Acid Calcium Phosphorus Magnesium AST ALT Lactate Dehydrogenase CK-MB (CK-2) C-Reactive Protein NT-Pro-B Natriuret Pep Total Protein Albumin Arterial Blood Glucose Urine WBC (Auto) 12/06/19 12/06/19 12/06/19 05:24 05:24 05:25 WBC 14.9 H RBC Hgb 10.8 L Hct 34.0 L MCHC RDW 15.6 H MCV MCH Lymph % (Auto) 10.7 L [place] % (Auto) 8.3 H [place] # 1.2 H Eos # Lymph # (Auto) [place] # (Auto) Eos # (Auto) Seg Neutrophils % 78.7 H Seg Neuts % (Manual) Baso # (Auto) Lymphocytes % (Manual) Monocytes % (Manual) Eosinophils % (Manual) Basophils % (Manual) Seg Neutrophils # 11.7 H Seg Neutrophils # Man Lymphocytes # (Manual) Monocytes # (Manual) Eosinophils # (Manual) Nucleated RBC % Basophils # (Manual) PT INR APTT Heparin Anti-Xa Level ABG pH POC ABG pO2 ABG pO2 ABG HCO3 ABG O2 Saturation ABG Base Excess POC ABG pCO2 ABG Hemoglobin ABG Oxyhemoglobin ABG Glucose Oxyhemoglobin Sodium 148 H Potassium 5.1 H Chloride 107.6 H Carbon Dioxide BUN 27 H Creatinine 0.7 L Glucose 155 H POC Glucose 157 H Lactic Acid Calcium Phosphorus Magnesium AST ALT Lactate Dehydrogenase CK-MB (CK-2) C-Reactive Protein NT-Pro-B Natriuret Pep Total Protein Albumin Arterial Blood Glucose Urine WBC (Auto) 12/07/19 12/07/19 12/07/19 00:13 05:34 11:33 WBC RBC Hgb Hct MCHC RDW MCV MCH Lymph % (Auto) [place] % (Auto) [place] # Eos # Lymph # (Auto) [place] # (Auto) Eos # (Auto) Seg Neutrophils % Seg Neuts % (Manual) Baso # (Auto) Lymphocytes % (Manual) Monocytes % (Manual) Eosinophils % (Manual) Basophils % (Manual) Seg Neutrophils # Seg Neutrophils # Man Lymphocytes # (Manual) Monocytes # (Manual) Eosinophils # (Manual) Nucleated RBC % Basophils # (Manual) PT INR APTT Heparin Anti-Xa Level ABG pH POC ABG pO2 ABG pO2 ABG HCO3 ABG O2 Saturation ABG Base Excess POC ABG pCO2 ABG Hemoglobin ABG Oxyhemoglobin ABG Glucose Oxyhemoglobin Sodium Potassium Chloride Carbon Dioxide BUN Creatinine Glucose POC Glucose 142 H 111 H 169 H Lactic Acid Calcium Phosphorus Magnesium AST ALT Lactate Dehydrogenase CK-MB (CK-2) C-Reactive Protein NT-Pro-B Natriuret Pep Total Protein Albumin Arterial Blood Glucose Urine WBC (Auto) 12/07/19 12/07/19 12/07/19 12:41 13:25 18:19 WBC 12.4 H RBC 3.53 L Hgb 10.2 L Hct 32.1 L MCHC RDW 15.3 H MCV MCH Lymph % (Auto) 10.6 L [place] % (Auto) 7.8 H [place] # 1.0 H Eos # Lymph # (Auto) [place] # (Auto) Eos # (Auto) Seg Neutrophils % 77.6 H Seg Neuts % (Manual) Baso # (Auto) Lymphocytes % (Manual) Monocytes % (Manual) Eosinophils % (Manual) Basophils % (Manual) Seg Neutrophils # 9.6 H Seg Neutrophils # Man Lymphocytes # (Manual) Monocytes # (Manual) Eosinophils # (Manual) Nucleated RBC % Basophils # (Manual) PT INR APTT Heparin Anti-Xa Level ABG pH POC ABG pO2 ABG pO2 ABG HCO3 ABG O2 Saturation ABG Base Excess POC ABG pCO2 ABG Hemoglobin ABG Oxyhemoglobin ABG Glucose Oxyhemoglobin Sodium 149 H Potassium Chloride 108.4 H Carbon Dioxide BUN 26 H Creatinine 0.6 L Glucose 149 H POC Glucose 164 H Lactic Acid Calcium Phosphorus Magnesium 2.60 H AST 121 H ALT 145 H Lactate Dehydrogenase CK-MB (CK-2) C-Reactive Protein NT-Pro-B Natriuret Pep Total Protein Albumin 2.6 L Arterial Blood Glucose Urine WBC (Auto) 12/07/19 12/08/19 12/08/19 22:25 00:02 03:55 WBC 13.3 H RBC 3.40 L Hgb 9.7 L Hct 30.8 L MCHC 31 L RDW 15.5 H MCV MCH Lymph % (Auto) [place] % (Auto) 8.1 H [place] # 1.1 H Eos # Lymph # (Auto) [place] # (Auto) Eos # (Auto) Seg Neutrophils % 73.0 H Seg Neuts % (Manual) Baso # (Auto) Lymphocytes % (Manual) Monocytes % (Manual) Eosinophils % (Manual) Basophils % (Manual) Seg Neutrophils # 9.7 H Seg Neutrophils # Man Lymphocytes # (Manual) Monocytes # (Manual) Eosinophils # (Manual) Nucleated RBC % Basophils # (Manual) PT INR APTT Heparin Anti-Xa Level 0.12 L ABG pH POC ABG pO2 ABG pO2 ABG HCO3 ABG O2 Saturation ABG Base Excess POC ABG pCO2 ABG Hemoglobin ABG Oxyhemoglobin ABG Glucose Oxyhemoglobin Sodium Potassium Chloride Carbon Dioxide BUN Creatinine Glucose POC Glucose 151 H Lactic Acid Calcium Phosphorus Magnesium AST ALT Lactate Dehydrogenase CK-MB (CK-2) C-Reactive Protein NT-Pro-B Natriuret Pep Total Protein Albumin Arterial Blood Glucose Urine WBC (Auto) 12/08/19 12/08/19 12/08/19 03:55 05:21 06:01 WBC RBC Hgb Hct MCHC RDW MCV MCH Lymph % (Auto) [place] % (Auto) [place] # Eos # Lymph # (Auto) [place] # (Auto) Eos # (Auto) Seg Neutrophils % Seg Neuts % (Manual) Baso # (Auto) Lymphocytes % (Manual) Monocytes % (Manual) Eosinophils % (Manual) Basophils % (Manual) Seg Neutrophils # Seg Neutrophils # Man Lymphocytes # (Manual) Monocytes # (Manual) Eosinophils # (Manual) Nucleated RBC % Basophils # (Manual) PT INR APTT Heparin Anti-Xa Level 0.20 L ABG pH POC ABG pO2 ABG pO2 ABG HCO3 ABG O2 Saturation ABG Base Excess POC ABG pCO2 ABG Hemoglobin ABG Oxyhemoglobin ABG Glucose Oxyhemoglobin Sodium 149 H Potassium Chloride 108.0 H Carbon Dioxide BUN 28 H Creatinine 0.6 L Glucose 144 H POC Glucose 143 H Lactic Acid Calcium Phosphorus Magnesium AST 98 H ALT 145 H Lactate Dehydrogenase CK-MB (CK-2) C-Reactive Protein NT-Pro-B Natriuret Pep Total Protein 6.0 L Albumin 2.4 L Arterial Blood Glucose Urine WBC (Auto) 12/08/19 12/08/19 12/08/19 12:08 18:11 23:53 WBC RBC Hgb Hct MCHC RDW MCV MCH Lymph % (Auto) [place] % (Auto) [place] # Eos # Lymph # (Auto) [place] # (Auto) Eos # (Auto) Seg Neutrophils % Seg Neuts % (Manual) Baso # (Auto) Lymphocytes % (Manual) Monocytes % (Manual) Eosinophils % (Manual) Basophils % (Manual) Seg Neutrophils # Seg Neutrophils # Man Lymphocytes # (Manual) Monocytes # (Manual) Eosinophils # (Manual) Nucleated RBC % Basophils # (Manual) PT INR APTT Heparin Anti-Xa Level ABG pH POC ABG pO2 ABG pO2 ABG HCO3 ABG O2 Saturation ABG Base Excess POC ABG pCO2 ABG Hemoglobin ABG Oxyhemoglobin ABG Glucose Oxyhemoglobin Sodium Potassium Chloride Carbon Dioxide BUN Creatinine Glucose POC Glucose 172 H 122 H 162 H Lactic Acid Calcium Phosphorus Magnesium AST ALT Lactate Dehydrogenase CK-MB (CK-2) C-Reactive Protein NT-Pro-B Natriuret Pep Total Protein Albumin Arterial Blood Glucose Urine WBC (Auto) 12/09/19 12/09/19 12/09/19 04:03 04:03 05:53 WBC RBC Hgb 9.1 L Hct 28.9 L MCHC RDW MCV MCH Lymph % (Auto) [place] % (Auto) [place] # Eos # Lymph # (Auto) [place] # (Auto) Eos # (Auto) Seg Neutrophils % Seg Neuts % (Manual) Baso # (Auto) Lymphocytes % (Manual) Monocytes % (Manual) Eosinophils % (Manual) Basophils % (Manual) Seg Neutrophils # Seg Neutrophils # Man Lymphocytes # (Manual) Monocytes # (Manual) Eosinophils # (Manual) Nucleated RBC % Basophils # (Manual) PT INR APTT Heparin Anti-Xa Level 0.15 L ABG pH POC ABG pO2 ABG pO2 ABG HCO3 ABG O2 Saturation ABG Base Excess POC ABG pCO2 ABG Hemoglobin ABG Oxyhemoglobin ABG Glucose Oxyhemoglobin Sodium Potassium Chloride Carbon Dioxide BUN Creatinine Glucose POC Glucose 124 H Lactic Acid Calcium Phosphorus Magnesium AST ALT Lactate Dehydrogenase CK-MB (CK-2) C-Reactive Protein NT-Pro-B Natriuret Pep Total Protein Albumin Arterial Blood Glucose Urine WBC (Auto) 12/09/19 12/09/19 12/10/19 09:43 12:41 00:13 WBC RBC Hgb Hct MCHC RDW MCV MCH Lymph % (Auto) [place] % (Auto) [place] # Eos # Lymph # (Auto) [place] # (Auto) Eos # (Auto) Seg Neutrophils % Seg Neuts % (Manual) Baso # (Auto) Lymphocytes % (Manual) Monocytes % (Manual) Eosinophils % (Manual) Basophils % (Manual) Seg Neutrophils # Seg Neutrophils # Man Lymphocytes # (Manual) Monocytes # (Manual) Eosinophils # (Manual) Nucleated RBC % Basophils # (Manual) PT INR APTT Heparin Anti-Xa Level ABG pH POC ABG pO2 ABG pO2 ABG HCO3 ABG O2 Saturation ABG Base Excess POC ABG pCO2 ABG Hemoglobin ABG Oxyhemoglobin ABG Glucose Oxyhemoglobin Sodium Potassium Chloride Carbon Dioxide BUN 25 H Creatinine 0.6 L Glucose 131 H POC Glucose 109 H 120 H Lactic Acid Calcium Phosphorus Magnesium AST ALT Lactate Dehydrogenase CK-MB (CK-2) C-Reactive Protein NT-Pro-B Natriuret Pep Total Protein Albumin Arterial Blood Glucose Urine WBC (Auto) 12/10/19 12/10/19 12/10/19 04:14 04:14 12:00 WBC 13.3 H RBC 3.34 L Hgb 9.6 L Hct 30.4 L MCHC RDW 15.4 H MCV MCH Lymph % (Auto) [place] % (Auto) [place] # Eos # Lymph # (Auto) [place] # (Auto) Eos # (Auto) Seg Neutrophils % Seg Neuts % (Manual) 75.0 H Baso # (Auto) Lymphocytes % (Manual) 13.0 L Monocytes % (Manual) 8.0 H Eosinophils % (Manual) Basophils % (Manual) 2.0 H Seg Neutrophils # Seg Neutrophils # Man 10.0 H Lymphocytes # (Manual) Monocytes # (Manual) 1.1 H Eosinophils # (Manual) Nucleated RBC % Basophils # (Manual) 0.3 H PT INR APTT Heparin Anti-Xa Level ABG pH POC ABG pO2 ABG pO2 ABG HCO3 ABG O2 Saturation ABG Base Excess POC ABG pCO2 ABG Hemoglobin ABG Oxyhemoglobin ABG Glucose Oxyhemoglobin Sodium 147 H Potassium Chloride 108.3 H Carbon Dioxide BUN 21 H Creatinine 0.6 L Glucose 104 H POC Glucose 133 H Lactic Acid Calcium Phosphorus Magnesium AST ALT Lactate Dehydrogenase CK-MB (CK-2) C-Reactive Protein NT-Pro-B Natriuret Pep Total Protein Albumin Arterial Blood Glucose Urine WBC (Auto) 12/10/19 12/10/19 12/11/19 18:44 21:20 00:08 WBC 14.9 H RBC 3.36 L Hgb 9.6 L Hct 30.5 L MCHC RDW 15.4 H MCV MCH Lymph % (Auto) [place] % (Auto) [place] # Eos # Lymph # (Auto) [place] # (Auto) Eos # (Auto) Seg Neutrophils % Seg Neuts % (Manual) Baso # (Auto) Lymphocytes % (Manual) Monocytes % (Manual) Eosinophils % (Manual) Basophils % (Manual) Seg Neutrophils # Seg Neutrophils # Man Lymphocytes # (Manual) Monocytes # (Manual) Eosinophils # (Manual) Nucleated RBC % Basophils # (Manual) PT INR APTT Heparin Anti-Xa Level ABG pH POC ABG pO2 ABG pO2 ABG HCO3 ABG O2 Saturation ABG Base Excess POC ABG pCO2 ABG Hemoglobin ABG Oxyhemoglobin ABG Glucose Oxyhemoglobin Sodium Potassium Chloride Carbon Dioxide BUN Creatinine Glucose POC Glucose 119 H 134 H Lactic Acid Calcium Phosphorus Magnesium AST ALT Lactate Dehydrogenase CK-MB (CK-2) C-Reactive Protein NT-Pro-B Natriuret Pep Total Protein Albumin Arterial Blood Glucose Urine WBC (Auto) 12/11/19 12/11/19 12/11/19 03:54 07:28 08:36 WBC 11.9 H RBC 3.25 L Hgb 9.6 L Hct 29.2 L MCHC RDW 15.7 H MCV MCH Lymph % (Auto) [place] % (Auto) [place] # Eos # Lymph # (Auto) [place] # (Auto) Eos # (Auto) Seg Neutrophils % Seg Neuts % (Manual) Baso # (Auto) Lymphocytes % (Manual) Monocytes % (Manual) Eosinophils % (Manual) Basophils % (Manual) Seg Neutrophils # Seg Neutrophils # Man Lymphocytes # (Manual) Monocytes # (Manual) Eosinophils # (Manual) Nucleated RBC % Basophils # (Manual) PT INR APTT Heparin Anti-Xa Level 0.10 L 0.16 L ABG pH POC ABG pO2 ABG pO2 ABG HCO3 ABG O2 Saturation ABG Base Excess POC ABG pCO2 ABG Hemoglobin ABG Oxyhemoglobin ABG Glucose Oxyhemoglobin Sodium Potassium Chloride Carbon Dioxide BUN Creatinine Glucose POC Glucose Lactic Acid Calcium Phosphorus Magnesium AST ALT Lactate Dehydrogenase CK-MB (CK-2) C-Reactive Protein NT-Pro-B Natriuret Pep Total Protein Albumin Arterial Blood Glucose Urine WBC (Auto) 12/11/19 12/11/19 12/11/19 08:36 11:45 17:15 WBC RBC Hgb Hct MCHC RDW MCV MCH Lymph % (Auto) [place] % (Auto) [place] # Eos # Lymph # (Auto) [place] # (Auto) Eos # (Auto) Seg Neutrophils % Seg Neuts % (Manual) Baso # (Auto) Lymphocytes % (Manual) Monocytes % (Manual) Eosinophils % (Manual) Basophils % (Manual) Seg Neutrophils # Seg Neutrophils # Man Lymphocytes # (Manual) Monocytes # (Manual) Eosinophils # (Manual) Nucleated RBC % Basophils # (Manual) PT INR APTT Heparin Anti-Xa Level ABG pH POC ABG pO2 ABG pO2 ABG HCO3 ABG O2 Saturation ABG Base Excess POC ABG pCO2 ABG Hemoglobin ABG Oxyhemoglobin ABG Glucose Oxyhemoglobin Sodium Potassium Chloride Carbon Dioxide BUN Creatinine 0.5 L Glucose 128 H POC Glucose 136 H 109 H Lactic Acid Calcium Phosphorus Magnesium AST ALT Lactate Dehydrogenase CK-MB (CK-2) C-Reactive Protein NT-Pro-B Natriuret Pep Total Protein Albumin Arterial Blood Glucose Urine WBC (Auto) 12/12/19 12/12/19 12/12/19 00:03 05:53 05:53 WBC RBC Hgb 8.8 L Hct 27.6 L MCHC RDW MCV MCH Lymph % (Auto) [place] % (Auto) [place] # Eos # Lymph # (Auto) [place] # (Auto) Eos # (Auto) Seg Neutrophils % Seg Neuts % (Manual) Baso # (Auto) Lymphocytes % (Manual) Monocytes % (Manual) Eosinophils % (Manual) Basophils % (Manual) Seg Neutrophils # Seg Neutrophils # Man Lymphocytes # (Manual) Monocytes # (Manual) Eosinophils # (Manual) Nucleated RBC % Basophils # (Manual) PT INR APTT Heparin Anti-Xa Level 0.22 L ABG pH POC ABG pO2 ABG pO2 ABG HCO3 ABG O2 Saturation ABG Base Excess POC ABG pCO2 ABG Hemoglobin ABG Oxyhemoglobin ABG Glucose Oxyhemoglobin Sodium Potassium Chloride Carbon Dioxide BUN Creatinine Glucose POC Glucose 116 H Lactic Acid Calcium Phosphorus Magnesium AST ALT Lactate Dehydrogenase CK-MB (CK-2) C-Reactive Protein NT-Pro-B Natriuret Pep Total Protein Albumin Arterial Blood Glucose Urine WBC (Auto) 12/12/19 12/12/19 12/12/19 09:38 12:18 17:44 WBC RBC Hgb Hct MCHC RDW MCV MCH Lymph % (Auto) [place] % (Auto) [place] # Eos # Lymph # (Auto) [place] # (Auto) Eos # (Auto) Seg Neutrophils % Seg Neuts % (Manual) Baso # (Auto) Lymphocytes % (Manual) Monocytes % (Manual) Eosinophils % (Manual) Basophils % (Manual) Seg Neutrophils # Seg Neutrophils # Man Lymphocytes # (Manual) Monocytes # (Manual) Eosinophils # (Manual) Nucleated RBC % Basophils # (Manual) PT INR APTT Heparin Anti-Xa Level ABG pH POC ABG pO2 ABG pO2 ABG HCO3 ABG O2 Saturation ABG Base Excess POC ABG pCO2 ABG Hemoglobin ABG Oxyhemoglobin ABG Glucose Oxyhemoglobin Sodium Potassium Chloride Carbon Dioxide BUN Creatinine Glucose POC Glucose 115 H 146 H 146 H Lactic Acid Calcium Phosphorus Magnesium AST ALT Lactate Dehydrogenase CK-MB (CK-2) C-Reactive Protein NT-Pro-B Natriuret Pep Total Protein Albumin Arterial Blood Glucose Urine WBC (Auto) 12/12/19 12/13/19 12/13/19 23:33 05:32 05:32 WBC 13.1 H RBC 3.27 L Hgb 9.5 L Hct 29.3 L MCHC RDW 15.6 H MCV MCH Lymph % (Auto) [place] % (Auto) [place] # Eos # Lymph # (Auto) [place] # (Auto) Eos # (Auto) Seg Neutrophils % Seg Neuts % (Manual) 74.0 H Baso # (Auto) Lymphocytes % (Manual) 8.0 L Monocytes % (Manual) 9.0 H Eosinophils % (Manual) 5.0 H Basophils % (Manual) Seg Neutrophils # Seg Neutrophils # Man 9.7 H Lymphocytes # (Manual) 1.0 L Monocytes # (Manual) 1.2 H Eosinophils # (Manual) 0.7 H Nucleated RBC % Basophils # (Manual) PT INR APTT Heparin Anti-Xa Level 0.20 L ABG pH POC ABG pO2 ABG pO2 ABG HCO3 ABG O2 Saturation ABG Base Excess POC ABG pCO2 ABG Hemoglobin ABG Oxyhemoglobin ABG Glucose Oxyhemoglobin Sodium Potassium Chloride Carbon Dioxide BUN Creatinine Glucose POC Glucose 126 H Lactic Acid Calcium Phosphorus Magnesium AST ALT Lactate Dehydrogenase CK-MB (CK-2) C-Reactive Protein NT-Pro-B Natriuret Pep Total Protein Albumin Arterial Blood Glucose Urine WBC (Auto) 12/13/19 12/13/19 12/13/19 05:32 05:46 11:57 WBC RBC Hgb Hct MCHC RDW MCV MCH Lymph % (Auto) [place] % (Auto) [place] # Eos # Lymph # (Auto) [place] # (Auto) Eos # (Auto) Seg Neutrophils % Seg Neuts % (Manual) Baso # (Auto) Lymphocytes % (Manual) Monocytes % (Manual) Eosinophils % (Manual) Basophils % (Manual) Seg Neutrophils # Seg Neutrophils # Man Lymphocytes # (Manual) Monocytes # (Manual) Eosinophils # (Manual) Nucleated RBC % Basophils # (Manual) PT INR APTT Heparin Anti-Xa Level ABG pH POC ABG pO2 ABG pO2 ABG HCO3 ABG O2 Saturation ABG Base Excess POC ABG pCO2 ABG Hemoglobin ABG Oxyhemoglobin ABG Glucose Oxyhemoglobin Sodium Potassium Chloride Carbon Dioxide 31 H BUN Creatinine 0.6 L Glucose 114 H POC Glucose 118 H 133 H Lactic Acid Calcium Phosphorus Magnesium AST ALT Lactate Dehydrogenase CK-MB (CK-2) C-Reactive Protein NT-Pro-B Natriuret Pep Total Protein Albumin Arterial Blood Glucose Urine WBC (Auto) 12/13/19 12/13/19 12/14/19 17:44 23:46 05:32 WBC RBC Hgb Hct MCHC RDW MCV MCH Lymph % (Auto) [place] % (Auto) [place] # Eos # Lymph # (Auto) [place] # (Auto) Eos # (Auto) Seg Neutrophils % Seg Neuts % (Manual) Baso # (Auto) Lymphocytes % (Manual) Monocytes % (Manual) Eosinophils % (Manual) Basophils % (Manual) Seg Neutrophils # Seg Neutrophils # Man Lymphocytes # (Manual) Monocytes # (Manual) Eosinophils # (Manual) Nucleated RBC % Basophils # (Manual) PT INR APTT Heparin Anti-Xa Level ABG pH POC ABG pO2 ABG pO2 ABG HCO3 ABG O2 Saturation ABG Base Excess POC ABG pCO2 ABG Hemoglobin ABG Oxyhemoglobin ABG Glucose Oxyhemoglobin Sodium Potassium Chloride Carbon Dioxide BUN Creatinine Glucose POC Glucose 161 H 126 H 139 H Lactic Acid Calcium Phosphorus Magnesium AST ALT Lactate Dehydrogenase CK-MB (CK-2) C-Reactive Protein NT-Pro-B Natriuret Pep Total Protein Albumin Arterial Blood Glucose Urine WBC (Auto) 12/14/19 12/14/19 12/14/19 06:03 06:03 09:37 WBC RBC Hgb 9.6 L Hct 30.4 L MCHC RDW MCV MCH Lymph % (Auto) [place] % (Auto) [place] # Eos # Lymph # (Auto) [place] # (Auto) Eos # (Auto) Seg Neutrophils % Seg Neuts % (Manual) Baso # (Auto) Lymphocytes % (Manual) Monocytes % (Manual) Eosinophils % (Manual) Basophils % (Manual) Seg Neutrophils # Seg Neutrophils # Man Lymphocytes # (Manual) Monocytes # (Manual) Eosinophils # (Manual) Nucleated RBC % Basophils # (Manual) PT INR APTT Heparin Anti-Xa Level 0.24 L ABG pH POC ABG pO2 ABG pO2 ABG HCO3 ABG O2 Saturation ABG Base Excess POC ABG pCO2 ABG Hemoglobin ABG Oxyhemoglobin ABG Glucose Oxyhemoglobin Sodium Potassium Chloride Carbon Dioxide BUN Creatinine 0.6 L Glucose 162 H POC Glucose Lactic Acid Calcium Phosphorus Magnesium AST 71 H ALT 118 H Lactate Dehydrogenase CK-MB (CK-2) C-Reactive Protein NT-Pro-B Natriuret Pep Total Protein 6.2 L Albumin 2.3 L Arterial Blood Glucose Urine WBC (Auto) 12/14/19 12/14/19 12/15/19 12:06 18:18 00:19 WBC RBC Hgb Hct MCHC RDW MCV MCH Lymph % (Auto) [place] % (Auto) [place] # Eos # Lymph # (Auto) [place] # (Auto) Eos # (Auto) Seg Neutrophils % Seg Neuts % (Manual) Baso # (Auto) Lymphocytes % (Manual) Monocytes % (Manual) Eosinophils % (Manual) Basophils % (Manual) Seg Neutrophils # Seg Neutrophils # Man Lymphocytes # (Manual) Monocytes # (Manual) Eosinophils # (Manual) Nucleated RBC % Basophils # (Manual) PT INR APTT Heparin Anti-Xa Level ABG pH POC ABG pO2 ABG pO2 ABG HCO3 ABG O2 Saturation ABG Base Excess POC ABG pCO2 ABG Hemoglobin ABG Oxyhemoglobin ABG Glucose Oxyhemoglobin Sodium Potassium Chloride Carbon Dioxide BUN Creatinine Glucose POC Glucose 147 H 166 H 123 H Lactic Acid Calcium Phosphorus Magnesium AST ALT Lactate Dehydrogenase CK-MB (CK-2) C-Reactive Protein NT-Pro-B Natriuret Pep Total Protein Albumin Arterial Blood Glucose Urine WBC (Auto) 12/15/19 12/15/19 12/15/19 05:28 05:29 05:29 WBC 14.9 H RBC 3.19 L Hgb 9.1 L Hct 28.7 L MCHC RDW 16.0 H MCV MCH Lymph % (Auto) [place] % (Auto) [place] # Eos # Lymph # (Auto) [place] # (Auto) Eos # (Auto) Seg Neutrophils % Seg Neuts % (Manual) Baso # (Auto) Lymphocytes % (Manual) Monocytes % (Manual) Eosinophils % (Manual) Basophils % (Manual) Seg Neutrophils # Seg Neutrophils # Man Lymphocytes # (Manual) Monocytes # (Manual) Eosinophils # (Manual) Nucleated RBC % Basophils # (Manual) PT INR APTT Heparin Anti-Xa Level 0.19 L ABG pH POC ABG pO2 ABG pO2 ABG HCO3 ABG O2 Saturation ABG Base Excess POC ABG pCO2 ABG Hemoglobin ABG Oxyhemoglobin ABG Glucose Oxyhemoglobin Sodium Potassium Chloride Carbon Dioxide BUN Creatinine 0.6 L Glucose 110 H POC Glucose Lactic Acid Calcium Phosphorus Magnesium AST ALT Lactate Dehydrogenase CK-MB (CK-2) C-Reactive Protein NT-Pro-B Natriuret Pep Total Protein Albumin Arterial Blood Glucose Urine WBC (Auto) 12/15/19 12/15/19 12/15/19 05:53 11:50 17:26 WBC RBC Hgb Hct MCHC RDW MCV MCH Lymph % (Auto) [place] % (Auto) [place] # Eos # Lymph # (Auto) [place] # (Auto) Eos # (Auto) Seg Neutrophils % Seg Neuts % (Manual) Baso # (Auto) Lymphocytes % (Manual) Monocytes % (Manual) Eosinophils % (Manual) Basophils % (Manual) Seg Neutrophils # Seg Neutrophils # Man Lymphocytes # (Manual) Monocytes # (Manual) Eosinophils # (Manual) Nucleated RBC % Basophils # (Manual) PT INR APTT Heparin Anti-Xa Level ABG pH POC ABG pO2 ABG pO2 ABG HCO3 ABG O2 Saturation ABG Base Excess POC ABG pCO2 ABG Hemoglobin ABG Oxyhemoglobin ABG Glucose Oxyhemoglobin Sodium Potassium Chloride Carbon Dioxide BUN Creatinine Glucose POC Glucose 119 H 132 H 128 H Lactic Acid Calcium Phosphorus Magnesium AST ALT Lactate Dehydrogenase CK-MB (CK-2) C-Reactive Protein NT-Pro-B Natriuret Pep Total Protein Albumin Arterial Blood Glucose Urine WBC (Auto) 12/15/19 12/16/19 12/16/19 23:11 05:30 05:46 WBC RBC Hgb 8.8 L Hct 27.9 L MCHC RDW MCV MCH Lymph % (Auto) [place] % (Auto) [place] # Eos # Lymph # (Auto) [place] # (Auto) Eos # (Auto) Seg Neutrophils % Seg Neuts % (Manual) Baso # (Auto) Lymphocytes % (Manual) Monocytes % (Manual) Eosinophils % (Manual) Basophils % (Manual) Seg Neutrophils # Seg Neutrophils # Man Lymphocytes # (Manual) Monocytes # (Manual) Eosinophils # (Manual) Nucleated RBC % Basophils # (Manual) PT INR APTT Heparin Anti-Xa Level ABG pH POC ABG pO2 ABG pO2 ABG HCO3 ABG O2 Saturation ABG Base Excess POC ABG pCO2 ABG Hemoglobin ABG Oxyhemoglobin ABG Glucose Oxyhemoglobin Sodium Potassium Chloride Carbon Dioxide BUN Creatinine Glucose POC Glucose 150 H 134 H Lactic Acid Calcium Phosphorus Magnesium AST ALT Lactate Dehydrogenase CK-MB (CK-2) C-Reactive Protein NT-Pro-B Natriuret Pep Total Protein Albumin Arterial Blood Glucose Urine WBC (Auto) 12/16/19 12/16/19 12/16/19 05:46 05:46 11:44 WBC RBC Hgb Hct MCHC RDW MCV MCH Lymph % (Auto) [place] % (Auto) [place] # Eos # Lymph # (Auto) [place] # (Auto) Eos # (Auto) Seg Neutrophils % Seg Neuts % (Manual) Baso # (Auto) Lymphocytes % (Manual) Monocytes % (Manual) Eosinophils % (Manual) Basophils % (Manual) Seg Neutrophils # Seg Neutrophils # Man Lymphocytes # (Manual) Monocytes # (Manual) Eosinophils # (Manual) Nucleated RBC % Basophils # (Manual) PT INR APTT Heparin Anti-Xa Level 0.20 L ABG pH POC ABG pO2 ABG pO2 ABG HCO3 ABG O2 Saturation ABG Base Excess POC ABG pCO2 ABG Hemoglobin ABG Oxyhemoglobin ABG Glucose Oxyhemoglobin Sodium Potassium Chloride Carbon Dioxide 31 H BUN Creatinine 0.5 L Glucose 147 H POC Glucose 164 H Lactic Acid Calcium Phosphorus Magnesium AST ALT Lactate Dehydrogenase CK-MB (CK-2) C-Reactive Protein NT-Pro-B Natriuret Pep Total Protein Albumin Arterial Blood Glucose Urine WBC (Auto) 12/16/19 12/16/19 12/17/19 17:17 23:49 05:30 WBC 13.9 H RBC 3.27 L Hgb 9.4 L Hct 29.2 L MCHC RDW 16.0 H MCV MCH Lymph % (Auto) [place] % (Auto) 8.8 H [place] # Eos # Lymph # (Auto) [place] # (Auto) 1.2 H Eos # (Auto) 0.5 H Seg Neutrophils % 70.5 H Seg Neuts % (Manual) Baso # (Auto) 0.2 H Lymphocytes % (Manual) Monocytes % (Manual) Eosinophils % (Manual) Basophils % (Manual) Seg Neutrophils # 9.8 H Seg Neutrophils # Man Lymphocytes # (Manual) Monocytes # (Manual) Eosinophils # (Manual) Nucleated RBC % Basophils # (Manual) PT INR APTT Heparin Anti-Xa Level ABG pH POC ABG pO2 ABG pO2 ABG HCO3 ABG O2 Saturation ABG Base Excess POC ABG pCO2 ABG Hemoglobin ABG Oxyhemoglobin ABG Glucose Oxyhemoglobin Sodium Potassium Chloride Carbon Dioxide BUN Creatinine Glucose POC Glucose 162 H 144 H Lactic Acid Calcium Phosphorus Magnesium AST ALT Lactate Dehydrogenase CK-MB (CK-2) C-Reactive Protein NT-Pro-B Natriuret Pep Total Protein Albumin Arterial Blood Glucose Urine WBC (Auto) 12/17/19 12/17/19 12/17/19 05:30 06:06 11:50 WBC RBC Hgb Hct MCHC RDW MCV MCH Lymph % (Auto) [place] % (Auto) [place] # Eos # Lymph # (Auto) [place] # (Auto) Eos # (Auto) Seg Neutrophils % Seg Neuts % (Manual) Baso # (Auto) Lymphocytes % (Manual) Monocytes % (Manual) Eosinophils % (Manual) Basophils % (Manual) Seg Neutrophils # Seg Neutrophils # Man Lymphocytes # (Manual) Monocytes # (Manual) Eosinophils # (Manual) Nucleated RBC % Basophils # (Manual) PT INR APTT Heparin Anti-Xa Level ABG pH POC ABG pO2 ABG pO2 ABG HCO3 ABG O2 Saturation ABG Base Excess POC ABG pCO2 ABG Hemoglobin ABG Oxyhemoglobin ABG Glucose Oxyhemoglobin Sodium Potassium Chloride 97.4 L Carbon Dioxide 32 H BUN Creatinine 0.5 L Glucose 135 H POC Glucose 151 H 140 H Lactic Acid Calcium Phosphorus Magnesium AST ALT Lactate Dehydrogenase CK-MB (CK-2) C-Reactive Protein NT-Pro-B Natriuret Pep Total Protein Albumin Arterial Blood Glucose Urine WBC (Auto) 12/17/19 12/17/19 12/18/19 17:50 23:46 05:17 WBC RBC Hgb 8.8 L Hct 28.0 L MCHC RDW MCV MCH Lymph % (Auto) [place] % (Auto) [place] # Eos # Lymph # (Auto) [place] # (Auto) Eos # (Auto) Seg Neutrophils % Seg Neuts % (Manual) Baso # (Auto) Lymphocytes % (Manual) Monocytes % (Manual) Eosinophils % (Manual) Basophils % (Manual) Seg Neutrophils # Seg Neutrophils # Man Lymphocytes # (Manual) Monocytes # (Manual) Eosinophils # (Manual) Nucleated RBC % Basophils # (Manual) PT INR APTT Heparin Anti-Xa Level ABG pH POC ABG pO2 ABG pO2 ABG HCO3 ABG O2 Saturation ABG Base Excess POC ABG pCO2 ABG Hemoglobin ABG Oxyhemoglobin ABG Glucose Oxyhemoglobin Sodium Potassium Chloride Carbon Dioxide BUN Creatinine Glucose POC Glucose 158 H 150 H Lactic Acid Calcium Phosphorus Magnesium AST ALT Lactate Dehydrogenase CK-MB (CK-2) C-Reactive Protein NT-Pro-B Natriuret Pep Total Protein Albumin Arterial Blood Glucose Urine WBC (Auto) 12/18/19 12/18/19 12/18/19 05:17 05:49 11:12 WBC RBC Hgb Hct MCHC RDW MCV MCH Lymph % (Auto) [place] % (Auto) [place] # Eos # Lymph # (Auto) [place] # (Auto) Eos # (Auto) Seg Neutrophils % Seg Neuts % (Manual) Baso # (Auto) Lymphocytes % (Manual) Monocytes % (Manual) Eosinophils % (Manual) Basophils % (Manual) Seg Neutrophils # Seg Neutrophils # Man Lymphocytes # (Manual) Monocytes # (Manual) Eosinophils # (Manual) Nucleated RBC % Basophils # (Manual) PT INR APTT Heparin Anti-Xa Level 0.16 L ABG pH POC ABG pO2 ABG pO2 ABG HCO3 ABG O2 Saturation ABG Base Excess POC ABG pCO2 ABG Hemoglobin ABG Oxyhemoglobin ABG Glucose Oxyhemoglobin Sodium Potassium Chloride Carbon Dioxide BUN Creatinine Glucose POC Glucose 127 H 191 H Lactic Acid Calcium Phosphorus Magnesium AST ALT Lactate Dehydrogenase CK-MB (CK-2) C-Reactive Protein NT-Pro-B Natriuret Pep Total Protein Albumin Arterial Blood Glucose Urine WBC (Auto) 12/18/19 12/18/19 12/19/19 17:03 20:16 00:08 WBC RBC Hgb Hct MCHC RDW MCV MCH Lymph % (Auto) [place] % (Auto) [place] # Eos # Lymph # (Auto) [place] # (Auto) Eos # (Auto) Seg Neutrophils % Seg Neuts % (Manual) Baso # (Auto) Lymphocytes % (Manual) Monocytes % (Manual) Eosinophils % (Manual) Basophils % (Manual) Seg Neutrophils # Seg Neutrophils # Man Lymphocytes # (Manual) Monocytes # (Manual) Eosinophils # (Manual) Nucleated RBC % Basophils # (Manual) PT INR APTT Heparin Anti-Xa Level ABG pH POC ABG pO2 ABG pO2 ABG HCO3 ABG O2 Saturation ABG Base Excess POC ABG pCO2 ABG Hemoglobin ABG Oxyhemoglobin ABG Glucose Oxyhemoglobin Sodium Potassium Chloride Carbon Dioxide BUN Creatinine Glucose POC Glucose 133 H 128 H 129 H Lactic Acid Calcium Phosphorus Magnesium AST ALT Lactate Dehydrogenase CK-MB (CK-2) C-Reactive Protein NT-Pro-B Natriuret Pep Total Protein Albumin Arterial Blood Glucose Urine WBC (Auto) 12/19/19 12/19/19 12/19/19 04:45 04:45 05:35 WBC RBC Hgb Hct MCHC RDW MCV MCH Lymph % (Auto) [place] % (Auto) [place] # Eos # Lymph # (Auto) [place] # (Auto) Eos # (Auto) Seg Neutrophils % Seg Neuts % (Manual) Baso # (Auto) Lymphocytes % (Manual) Monocytes % (Manual) Eosinophils % (Manual) Basophils % (Manual) Seg Neutrophils # Seg Neutrophils # Man Lymphocytes # (Manual) Monocytes # (Manual) Eosinophils # (Manual) Nucleated RBC % Basophils # (Manual) PT INR APTT Heparin Anti-Xa Level 0.17 L ABG pH POC ABG pO2 ABG pO2 ABG HCO3 ABG O2 Saturation ABG Base Excess POC ABG pCO2 ABG Hemoglobin ABG Oxyhemoglobin ABG Glucose Oxyhemoglobin Sodium Potassium Chloride Carbon Dioxide BUN Creatinine Glucose POC Glucose 120 H Lactic Acid Calcium Phosphorus Magnesium AST ALT Lactate Dehydrogenase 228 H CK-MB (CK-2) C-Reactive Protein NT-Pro-B Natriuret Pep Total Protein Albumin Arterial Blood Glucose Urine WBC (Auto) 12/19/19 12/19/19 12/19/19 09:20 11:32 11:32 WBC 14.6 H RBC 3.08 L Hgb 9.0 L Hct 26.8 L MCHC RDW 15.9 H MCV MCH Lymph % (Auto) [place] % (Auto) [place] # Eos # Lymph # (Auto) [place] # (Auto) Eos # (Auto) Seg Neutrophils % Seg Neuts % (Manual) 82.0 H Baso # (Auto) Lymphocytes % (Manual) 10.0 L Monocytes % (Manual) Eosinophils % (Manual) Basophils % (Manual) Seg Neutrophils # Seg Neutrophils # Man 12.0 H Lymphocytes # (Manual) Monocytes # (Manual) 0.9 H Eosinophils # (Manual) Nucleated RBC % 1.0 H Basophils # (Manual) PT INR APTT Heparin Anti-Xa Level ABG pH 7.451 H POC ABG pO2 ABG pO2 62.6 L ABG HCO3 33.2 H ABG O2 Saturation 93.8 L ABG Base Excess 8.3 H POC ABG pCO2 ABG Hemoglobin 8.3 L ABG Oxyhemoglobin ABG Glucose Oxyhemoglobin 91.9 L Sodium Potassium Chloride 95.0 L Carbon Dioxide 33 H BUN 22 H Creatinine 0.6 L Glucose 150 H POC Glucose Lactic Acid Calcium Phosphorus Magnesium AST ALT Lactate Dehydrogenase CK-MB (CK-2) C-Reactive Protein NT-Pro-B Natriuret Pep Total Protein 6.2 L Albumin 2.4 L Arterial Blood Glucose Urine WBC (Auto) 12/19/19 12/19/19 12/20/19 11:56 18:17 00:09 WBC RBC Hgb Hct MCHC RDW MCV MCH Lymph % (Auto) [place] % (Auto) [place] # Eos # Lymph # (Auto) [place] # (Auto) Eos # (Auto) Seg Neutrophils % Seg Neuts % (Manual) Baso # (Auto) Lymphocytes % (Manual) Monocytes % (Manual) Eosinophils % (Manual) Basophils % (Manual) Seg Neutrophils # Seg Neutrophils # Man Lymphocytes # (Manual) Monocytes # (Manual) Eosinophils # (Manual) Nucleated RBC % Basophils # (Manual) PT INR APTT Heparin Anti-Xa Level ABG pH POC ABG pO2 ABG pO2 ABG HCO3 ABG O2 Saturation ABG Base Excess POC ABG pCO2 ABG Hemoglobin ABG Oxyhemoglobin ABG Glucose Oxyhemoglobin Sodium Potassium Chloride Carbon Dioxide BUN Creatinine Glucose POC Glucose 156 H 156 H 155 H Lactic Acid Calcium Phosphorus Magnesium AST ALT Lactate Dehydrogenase CK-MB (CK-2) C-Reactive Protein NT-Pro-B Natriuret Pep Total Protein Albumin Arterial Blood Glucose Urine WBC (Auto) 12/20/19 12/20/19 12/20/19 05:26 06:02 18:17 WBC RBC Hgb Hct MCHC RDW MCV MCH Lymph % (Auto) [place] % (Auto) [place] # Eos # Lymph # (Auto) [place] # (Auto) Eos # (Auto) Seg Neutrophils % Seg Neuts % (Manual) Baso # (Auto) Lymphocytes % (Manual) Monocytes % (Manual) Eosinophils % (Manual) Basophils % (Manual) Seg Neutrophils # Seg Neutrophils # Man Lymphocytes # (Manual) Monocytes # (Manual) Eosinophils # (Manual) Nucleated RBC % Basophils # (Manual) PT INR APTT Heparin Anti-Xa Level 0.19 L ABG pH POC ABG pO2 ABG pO2 ABG HCO3 ABG O2 Saturation ABG Base Excess POC ABG pCO2 ABG Hemoglobin ABG Oxyhemoglobin ABG Glucose Oxyhemoglobin Sodium Potassium Chloride Carbon Dioxide BUN Creatinine Glucose POC Glucose 137 H 128 H Lactic Acid Calcium Phosphorus Magnesium AST ALT Lactate Dehydrogenase CK-MB (CK-2) C-Reactive Protein NT-Pro-B Natriuret Pep Total Protein Albumin Arterial Blood Glucose Urine WBC (Auto) 12/20/19 12/21/19 12/21/19 23:34 05:31 05:31 WBC 12.7 H RBC 3.09 L Hgb 8.9 L Hct 27.4 L MCHC RDW 15.8 H MCV MCH Lymph % (Auto) 12.1 L [place] % (Auto) 7.8 H [place] # Eos # Lymph # (Auto) [place] # (Auto) 1.0 H Eos # (Auto) Seg Neutrophils % 77.1 H Seg Neuts % (Manual) Baso # (Auto) Lymphocytes % (Manual) Monocytes % (Manual) Eosinophils % (Manual) Basophils % (Manual) Seg Neutrophils # 9.8 H Seg Neutrophils # Man Lymphocytes # (Manual) Monocytes # (Manual) Eosinophils # (Manual) Nucleated RBC % Basophils # (Manual) PT INR APTT Heparin Anti-Xa Level ABG pH POC ABG pO2 ABG pO2 ABG HCO3 ABG O2 Saturation ABG Base Excess POC ABG pCO2 ABG Hemoglobin ABG Oxyhemoglobin ABG Glucose Oxyhemoglobin Sodium Potassium Chloride 96.9 L Carbon Dioxide 37 H BUN 27 H Creatinine 0.7 L Glucose 140 H POC Glucose 145 H Lactic Acid Calcium Phosphorus Magnesium AST ALT Lactate Dehydrogenase CK-MB (CK-2) C-Reactive Protein NT-Pro-B Natriuret Pep Total Protein Albumin Arterial Blood Glucose Urine WBC (Auto) 12/21/19 12/21/19 12/21/19 05:38 10:13 11:51 WBC RBC Hgb Hct MCHC RDW MCV MCH Lymph % (Auto) [place] % (Auto) [place] # Eos # Lymph # (Auto) [place] # (Auto) Eos # (Auto) Seg Neutrophils % Seg Neuts % (Manual) Baso # (Auto) Lymphocytes % (Manual) Monocytes % (Manual) Eosinophils % (Manual) Basophils % (Manual) Seg Neutrophils # Seg Neutrophils # Man Lymphocytes # (Manual) Monocytes # (Manual) Eosinophils # (Manual) Nucleated RBC % Basophils # (Manual) PT INR APTT 23.9 L Heparin Anti-Xa Level < 0.10 L ABG pH POC ABG pO2 ABG pO2 ABG HCO3 ABG O2 Saturation ABG Base Excess POC ABG pCO2 ABG Hemoglobin ABG Oxyhemoglobin ABG Glucose Oxyhemoglobin Sodium Potassium Chloride Carbon Dioxide BUN Creatinine Glucose POC Glucose 151 H 145 H Lactic Acid Calcium Phosphorus Magnesium AST ALT Lactate Dehydrogenase CK-MB (CK-2) C-Reactive Protein NT-Pro-B Natriuret Pep Total Protein Albumin Arterial Blood Glucose Urine WBC (Auto) 12/21/19 12/22/19 12/22/19 17:16 00:01 01:33 WBC RBC Hgb Hct MCHC RDW MCV MCH Lymph % (Auto) [place] % (Auto) [place] # Eos # Lymph # (Auto) [place] # (Auto) Eos # (Auto) Seg Neutrophils % Seg Neuts % (Manual) Baso # (Auto) Lymphocytes % (Manual) Monocytes % (Manual) Eosinophils % (Manual) Basophils % (Manual) Seg Neutrophils # Seg Neutrophils # Man Lymphocytes # (Manual) Monocytes # (Manual) Eosinophils # (Manual) Nucleated RBC % Basophils # (Manual) PT INR APTT Heparin Anti-Xa Level 0.10 L ABG pH POC ABG pO2 ABG pO2 ABG HCO3 ABG O2 Saturation ABG Base Excess POC ABG pCO2 ABG Hemoglobin ABG Oxyhemoglobin ABG Glucose Oxyhemoglobin Sodium Potassium Chloride Carbon Dioxide BUN Creatinine Glucose POC Glucose 167 H 179 H Lactic Acid Calcium Phosphorus Magnesium AST ALT Lactate Dehydrogenase CK-MB (CK-2) C-Reactive Protein NT-Pro-B Natriuret Pep Total Protein Albumin Arterial Blood Glucose Urine WBC (Auto) 12/22/19 12/22/19 12/22/19 03:22 05:10 05:10 WBC 13.8 H RBC 3.20 L Hgb 8.9 L Hct 28.1 L MCHC RDW 15.9 H MCV MCH Lymph % (Auto) [place] % (Auto) [place] # Eos # Lymph # (Auto) [place] # (Auto) Eos # (Auto) Seg Neutrophils % Seg Neuts % (Manual) Baso # (Auto) Lymphocytes % (Manual) Monocytes % (Manual) Eosinophils % (Manual) Basophils % (Manual) Seg Neutrophils # Seg Neutrophils # Man Lymphocytes # (Manual) Monocytes # (Manual) Eosinophils # (Manual) Nucleated RBC % Basophils # (Manual) PT INR APTT Heparin Anti-Xa Level ABG pH POC ABG pO2 52.3 L ABG pO2 ABG HCO3 ABG O2 Saturation ABG Base Excess POC ABG pCO2 52.9 H ABG Hemoglobin 10.7 L ABG Oxyhemoglobin 84 L ABG Glucose Oxyhemoglobin Sodium Potassium Chloride 96.6 L Carbon Dioxide BUN 25 H Creatinine 0.7 L Glucose 129 H POC Glucose Lactic Acid Calcium Phosphorus Magnesium AST ALT Lactate Dehydrogenase CK-MB (CK-2) C-Reactive Protein NT-Pro-B Natriuret Pep Total Protein Albumin Arterial Blood Glucose Urine WBC (Auto) 12/22/19 12/22/19 12/22/19 05:18 12:32 12:43 WBC RBC Hgb Hct MCHC RDW MCV MCH Lymph % (Auto) [place] % (Auto) [place] # Eos # Lymph # (Auto) [place] # (Auto) Eos # (Auto) Seg Neutrophils % Seg Neuts % (Manual) Baso # (Auto) Lymphocytes % (Manual) Monocytes % (Manual) Eosinophils % (Manual) Basophils % (Manual) Seg Neutrophils # Seg Neutrophils # Man Lymphocytes # (Manual) Monocytes # (Manual) Eosinophils # (Manual) Nucleated RBC % Basophils # (Manual) PT INR APTT Heparin Anti-Xa Level 0.18 L ABG pH POC ABG pO2 ABG pO2 ABG HCO3 ABG O2 Saturation ABG Base Excess POC ABG pCO2 ABG Hemoglobin ABG Oxyhemoglobin ABG Glucose Oxyhemoglobin Sodium Potassium Chloride Carbon Dioxide BUN Creatinine Glucose POC Glucose 131 H 208 H Lactic Acid Calcium Phosphorus Magnesium AST ALT Lactate Dehydrogenase CK-MB (CK-2) C-Reactive Protein NT-Pro-B Natriuret Pep Total Protein Albumin Arterial Blood Glucose Urine WBC (Auto) 12/22/19 12/22/19 12/23/19 17:44 23:20 03:51 WBC 15.2 H RBC 3.43 L Hgb 9.6 L Hct 30.3 L MCHC RDW 15.9 H MCV MCH Lymph % (Auto) [place] % (Auto) [place] # Eos # Lymph # (Auto) [place] # (Auto) Eos # (Auto) Seg Neutrophils % Seg Neuts % (Manual) Baso # (Auto) Lymphocytes % (Manual) Monocytes % (Manual) Eosinophils % (Manual) Basophils % (Manual) Seg Neutrophils # Seg Neutrophils # Man Lymphocytes # (Manual) Monocytes # (Manual) Eosinophils # (Manual) Nucleated RBC % Basophils # (Manual) PT INR APTT Heparin Anti-Xa Level ABG pH POC ABG pO2 ABG pO2 ABG HCO3 ABG O2 Saturation ABG Base Excess POC ABG pCO2 ABG Hemoglobin ABG Oxyhemoglobin ABG Glucose Oxyhemoglobin Sodium Potassium Chloride Carbon Dioxide BUN Creatinine Glucose POC Glucose 209 H 119 H Lactic Acid Calcium Phosphorus Magnesium AST ALT Lactate Dehydrogenase CK-MB (CK-2) C-Reactive Protein NT-Pro-B Natriuret Pep Total Protein Albumin Arterial Blood Glucose Urine WBC (Auto) 12/23/19 12/23/19 12/23/19 03:51 05:31 12:09 WBC RBC Hgb Hct MCHC RDW MCV MCH Lymph % (Auto) [place] % (Auto) [place] # Eos # Lymph # (Auto) [place] # (Auto) Eos # (Auto) Seg Neutrophils % Seg Neuts % (Manual) Baso # (Auto) Lymphocytes % (Manual) Monocytes % (Manual) Eosinophils % (Manual) Basophils % (Manual) Seg Neutrophils # Seg Neutrophils # Man Lymphocytes # (Manual) Monocytes # (Manual) Eosinophils # (Manual) Nucleated RBC % Basophils # (Manual) PT INR APTT Heparin Anti-Xa Level ABG pH POC ABG pO2 ABG pO2 ABG HCO3 ABG O2 Saturation ABG Base Excess POC ABG pCO2 ABG Hemoglobin ABG Oxyhemoglobin ABG Glucose Oxyhemoglobin Sodium Potassium Chloride 97.2 L Carbon Dioxide 31 H BUN 23 H Creatinine 0.6 L Glucose 153 H POC Glucose 149 H 144 H Lactic Acid Calcium Phosphorus Magnesium AST ALT Lactate Dehydrogenase CK-MB (CK-2) C-Reactive Protein NT-Pro-B Natriuret Pep Total Protein Albumin Arterial Blood Glucose Urine WBC (Auto) 12/23/19 12/23/19 12/23/19 15:30 17:49 23:31 WBC RBC Hgb Hct MCHC RDW MCV MCH Lymph % (Auto) [place] % (Auto) [place] # Eos # Lymph # (Auto) [place] # (Auto) Eos # (Auto) Seg Neutrophils % Seg Neuts % (Manual) Baso # (Auto) Lymphocytes % (Manual) Monocytes % (Manual) Eosinophils % (Manual) Basophils % (Manual) Seg Neutrophils # Seg Neutrophils # Man Lymphocytes # (Manual) Monocytes # (Manual) Eosinophils # (Manual) Nucleated RBC % Basophils # (Manual) PT INR APTT Heparin Anti-Xa Level 0.21 L ABG pH POC ABG pO2 ABG pO2 ABG HCO3 ABG O2 Saturation ABG Base Excess POC ABG pCO2 ABG Hemoglobin ABG Oxyhemoglobin ABG Glucose Oxyhemoglobin Sodium Potassium Chloride Carbon Dioxide BUN Creatinine Glucose POC Glucose 192 H 151 H Lactic Acid Calcium Phosphorus Magnesium AST ALT Lactate Dehydrogenase CK-MB (CK-2) C-Reactive Protein NT-Pro-B Natriuret Pep Total Protein Albumin Arterial Blood Glucose Urine WBC (Auto) 12/24/19 12/24/19 12/24/19 05:34 12:13 16:50 WBC RBC Hgb Hct MCHC RDW MCV MCH Lymph % (Auto) [place] % (Auto) [place] # Eos # Lymph # (Auto) [place] # (Auto) Eos # (Auto) Seg Neutrophils % Seg Neuts % (Manual) Baso # (Auto) Lymphocytes % (Manual) Monocytes % (Manual) Eosinophils % (Manual) Basophils % (Manual) Seg Neutrophils # Seg Neutrophils # Man Lymphocytes # (Manual) Monocytes # (Manual) Eosinophils # (Manual) Nucleated RBC % Basophils # (Manual) PT INR APTT Heparin Anti-Xa Level 0.16 L ABG pH POC ABG pO2 ABG pO2 ABG HCO3 ABG O2 Saturation ABG Base Excess POC ABG pCO2 ABG Hemoglobin ABG Oxyhemoglobin ABG Glucose Oxyhemoglobin Sodium Potassium Chloride Carbon Dioxide BUN Creatinine Glucose POC Glucose 145 H 124 H Lactic Acid Calcium Phosphorus Magnesium AST ALT Lactate Dehydrogenase CK-MB (CK-2) C-Reactive Protein NT-Pro-B Natriuret Pep Total Protein Albumin Arterial Blood Glucose Urine WBC (Auto) 12/24/19 12/25/19 12/25/19 17:53 00:14 04:18 WBC 12.9 H RBC 3.30 L Hgb 9.1 L Hct 28.8 L MCHC RDW 16.4 H MCV MCH Lymph % (Auto) [place] % (Auto) 7.8 H [place] # Eos # Lymph # (Auto) [place] # (Auto) 1.0 H Eos # (Auto) Seg Neutrophils % 75.5 H Seg Neuts % (Manual) Baso # (Auto) Lymphocytes % (Manual) Monocytes % (Manual) Eosinophils % (Manual) Basophils % (Manual) Seg Neutrophils # 9.7 H Seg Neutrophils # Man Lymphocytes # (Manual) Monocytes # (Manual) Eosinophils # (Manual) Nucleated RBC % Basophils # (Manual) PT INR APTT Heparin Anti-Xa Level ABG pH POC ABG pO2 ABG pO2 ABG HCO3 ABG O2 Saturation ABG Base Excess POC ABG pCO2 ABG Hemoglobin ABG Oxyhemoglobin ABG Glucose Oxyhemoglobin Sodium Potassium Chloride Carbon Dioxide BUN Creatinine Glucose POC Glucose 164 H 148 H Lactic Acid Calcium Phosphorus Magnesium AST ALT Lactate Dehydrogenase CK-MB (CK-2) C-Reactive Protein NT-Pro-B Natriuret Pep Total Protein Albumin Arterial Blood Glucose Urine WBC (Auto) 12/25/19 12/25/19 12/25/19 04:18 05:38 11:44 WBC RBC Hgb Hct MCHC RDW MCV MCH Lymph % (Auto) [place] % (Auto) [place] # Eos # Lymph # (Auto) [place] # (Auto) Eos # (Auto) Seg Neutrophils % Seg Neuts % (Manual) Baso # (Auto) Lymphocytes % (Manual) Monocytes % (Manual) Eosinophils % (Manual) Basophils % (Manual) Seg Neutrophils # Seg Neutrophils # Man Lymphocytes # (Manual) Monocytes # (Manual) Eosinophils # (Manual) Nucleated RBC % Basophils # (Manual) PT INR APTT Heparin Anti-Xa Level ABG pH POC ABG pO2 ABG pO2 ABG HCO3 ABG O2 Saturation ABG Base Excess POC ABG pCO2 ABG Hemoglobin ABG Oxyhemoglobin ABG Glucose Oxyhemoglobin Sodium Potassium Chloride Carbon Dioxide 33 H BUN 27 H Creatinine 0.6 L Glucose 132 H POC Glucose 152 H 166 H Lactic Acid Calcium Phosphorus Magnesium AST ALT Lactate Dehydrogenase CK-MB (CK-2) C-Reactive Protein NT-Pro-B Natriuret Pep Total Protein Albumin Arterial Blood Glucose Urine WBC (Auto) 12/25/19 12/26/19 12/26/19 18:29 00:17 00:18 WBC RBC Hgb Hct MCHC RDW MCV MCH Lymph % (Auto) [place] % (Auto) [place] # Eos # Lymph # (Auto) [place] # (Auto) Eos # (Auto) Seg Neutrophils % Seg Neuts % (Manual) Baso # (Auto) Lymphocytes % (Manual) Monocytes % (Manual) Eosinophils % (Manual) Basophils % (Manual) Seg Neutrophils # Seg Neutrophils # Man Lymphocytes # (Manual) Monocytes # (Manual) Eosinophils # (Manual) Nucleated RBC % Basophils # (Manual) PT INR APTT Heparin Anti-Xa Level ABG pH POC ABG pO2 ABG pO2 ABG HCO3 ABG O2 Saturation ABG Base Excess POC ABG pCO2 ABG Hemoglobin ABG Oxyhemoglobin ABG Glucose Oxyhemoglobin Sodium Potassium Chloride 97.8 L Carbon Dioxide BUN 25 H Creatinine 0.6 L Glucose 140 H POC Glucose 194 H 151 H Lactic Acid Calcium Phosphorus Magnesium AST ALT Lactate Dehydrogenase CK-MB (CK-2) C-Reactive Protein NT-Pro-B Natriuret Pep Total Protein Albumin Arterial Blood Glucose Urine WBC (Auto) 12/26/19 12/26/19 12/26/19 05:36 11:41 17:50 WBC RBC Hgb Hct MCHC RDW MCV MCH Lymph % (Auto) [place] % (Auto) [place] # Eos # Lymph # (Auto) [place] # (Auto) Eos # (Auto) Seg Neutrophils % Seg Neuts % (Manual) Baso # (Auto) Lymphocytes % (Manual) Monocytes % (Manual) Eosinophils % (Manual) Basophils % (Manual) Seg Neutrophils # Seg Neutrophils # Man Lymphocytes # (Manual) Monocytes # (Manual) Eosinophils # (Manual) Nucleated RBC % Basophils # (Manual) PT INR APTT Heparin Anti-Xa Level ABG pH POC ABG pO2 ABG pO2 ABG HCO3 ABG O2 Saturation ABG Base Excess POC ABG pCO2 ABG Hemoglobin ABG Oxyhemoglobin ABG Glucose Oxyhemoglobin Sodium Potassium Chloride Carbon Dioxide BUN Creatinine Glucose POC Glucose 156 H 148 H 139 H Lactic Acid Calcium Phosphorus Magnesium AST ALT Lactate Dehydrogenase CK-MB (CK-2) C-Reactive Protein NT-Pro-B Natriuret Pep Total Protein Albumin Arterial Blood Glucose Urine WBC (Auto) 12/26/19 12/27/19 12/27/19 23:19 05:34 12:02 WBC RBC Hgb Hct MCHC RDW MCV MCH Lymph % (Auto) [place] % (Auto) [place] # Eos # Lymph # (Auto) [place] # (Auto) Eos # (Auto) Seg Neutrophils % Seg Neuts % (Manual) Baso # (Auto) Lymphocytes % (Manual) Monocytes % (Manual) Eosinophils % (Manual) Basophils % (Manual) Seg Neutrophils # Seg Neutrophils # Man Lymphocytes # (Manual) Monocytes # (Manual) Eosinophils # (Manual) Nucleated RBC % Basophils # (Manual) PT INR APTT Heparin Anti-Xa Level ABG pH POC ABG pO2 ABG pO2 ABG HCO3 ABG O2 Saturation ABG Base Excess POC ABG pCO2 ABG Hemoglobin ABG Oxyhemoglobin ABG Glucose Oxyhemoglobin Sodium Potassium Chloride Carbon Dioxide BUN Creatinine Glucose POC Glucose 161 H 145 H 157 H Lactic Acid Calcium Phosphorus Magnesium AST ALT Lactate Dehydrogenase CK-MB (CK-2) C-Reactive Protein NT-Pro-B Natriuret Pep Total Protein Albumin Arterial Blood Glucose Urine WBC (Auto) 12/27/19 12/27/19 12/27/19 17:35 20:11 23:00 WBC RBC Hgb Hct MCHC RDW MCV MCH Lymph % (Auto) [place] % (Auto) [place] # Eos # Lymph # (Auto) [place] # (Auto) Eos # (Auto) Seg Neutrophils % Seg Neuts % (Manual) Baso # (Auto) Lymphocytes % (Manual) Monocytes % (Manual) Eosinophils % (Manual) Basophils % (Manual) Seg Neutrophils # Seg Neutrophils # Man Lymphocytes # (Manual) Monocytes # (Manual) Eosinophils # (Manual) Nucleated RBC % Basophils # (Manual) PT INR APTT Heparin Anti-Xa Level 0.19 L ABG pH POC ABG pO2 ABG pO2 ABG HCO3 ABG O2 Saturation ABG Base Excess POC ABG pCO2 ABG Hemoglobin ABG Oxyhemoglobin ABG Glucose Oxyhemoglobin Sodium Potassium Chloride Carbon Dioxide BUN Creatinine Glucose POC Glucose 158 H 155 H Lactic Acid Calcium Phosphorus Magnesium AST ALT Lactate Dehydrogenase CK-MB (CK-2) C-Reactive Protein NT-Pro-B Natriuret Pep Total Protein Albumin Arterial Blood Glucose Urine WBC (Auto) 12/27/19 12/28/19 12/28/19 23:45 02:41 02:41 WBC 13.0 H RBC 3.48 L Hgb 9.5 L Hct 30.6 L MCHC 31 L RDW 16.6 H MCV MCH 27 L Lymph % (Auto) 13.0 L [place] % (Auto) 8.0 H [place] # Eos # Lymph # (Auto) [place] # (Auto) 1.0 H Eos # (Auto) Seg Neutrophils % 76.3 H Seg Neuts % (Manual) Baso # (Auto) Lymphocytes % (Manual) Monocytes % (Manual) Eosinophils % (Manual) Basophils % (Manual) Seg Neutrophils # 9.9 H Seg Neutrophils # Man Lymphocytes # (Manual) Monocytes # (Manual) Eosinophils # (Manual) Nucleated RBC % Basophils # (Manual) PT INR APTT Heparin Anti-Xa Level ABG pH POC ABG pO2 ABG pO2 ABG HCO3 ABG O2 Saturation ABG Base Excess POC ABG pCO2 ABG Hemoglobin ABG Oxyhemoglobin ABG Glucose Oxyhemoglobin Sodium Potassium Chloride Carbon Dioxide BUN 22 H Creatinine 0.6 L Glucose 101 H POC Glucose 130 H Lactic Acid Calcium Phosphorus Magnesium AST ALT Lactate Dehydrogenase CK-MB (CK-2) C-Reactive Protein NT-Pro-B Natriuret Pep Total Protein Albumin Arterial Blood Glucose Urine WBC (Auto) 12/28/19 12/28/19 12/28/19 06:00 12:34 18:13 WBC RBC Hgb Hct MCHC RDW MCV MCH Lymph % (Auto) [place] % (Auto) [place] # Eos # Lymph # (Auto) [place] # (Auto) Eos # (Auto) Seg Neutrophils % Seg Neuts % (Manual) Baso # (Auto) Lymphocytes % (Manual) Monocytes % (Manual) Eosinophils % (Manual) Basophils % (Manual) Seg Neutrophils # Seg Neutrophils # Man Lymphocytes # (Manual) Monocytes # (Manual) Eosinophils # (Manual) Nucleated RBC % Basophils # (Manual) PT INR APTT Heparin Anti-Xa Level ABG pH POC ABG pO2 ABG pO2 ABG HCO3 ABG O2 Saturation ABG Base Excess POC ABG pCO2 ABG Hemoglobin ABG Oxyhemoglobin ABG Glucose Oxyhemoglobin Sodium Potassium Chloride Carbon Dioxide BUN Creatinine Glucose POC Glucose 150 H 161 H 128 H Lactic Acid Calcium Phosphorus Magnesium AST ALT Lactate Dehydrogenase CK-MB (CK-2) C-Reactive Protein NT-Pro-B Natriuret Pep Total Protein Albumin Arterial Blood Glucose Urine WBC (Auto) 12/28/19 12/29/19 12/29/19 23:36 05:21 11:40 WBC RBC Hgb Hct MCHC RDW MCV MCH Lymph % (Auto) [place] % (Auto) [place] # Eos # Lymph # (Auto) [place] # (Auto) Eos # (Auto) Seg Neutrophils % Seg Neuts % (Manual) Baso # (Auto) Lymphocytes % (Manual) Monocytes % (Manual) Eosinophils % (Manual) Basophils % (Manual) Seg Neutrophils # Seg Neutrophils # Man Lymphocytes # (Manual) Monocytes # (Manual) Eosinophils # (Manual) Nucleated RBC % Basophils # (Manual) PT INR APTT Heparin Anti-Xa Level ABG pH POC ABG pO2 ABG pO2 ABG HCO3 ABG O2 Saturation ABG Base Excess POC ABG pCO2 ABG Hemoglobin ABG Oxyhemoglobin ABG Glucose Oxyhemoglobin Sodium Potassium Chloride Carbon Dioxide BUN Creatinine Glucose POC Glucose 137 H 136 H 166 H Lactic Acid Calcium Phosphorus Magnesium AST ALT Lactate Dehydrogenase CK-MB (CK-2) C-Reactive Protein NT-Pro-B Natriuret Pep Total Protein Albumin Arterial Blood Glucose Urine WBC (Auto) 12/29/19 12/29/19 12/29/19 17:23 19:21 23:38 WBC RBC Hgb Hct MCHC RDW MCV MCH Lymph % (Auto) [place] % (Auto) [place] # Eos # Lymph # (Auto) [place] # (Auto) Eos # (Auto) Seg Neutrophils % Seg Neuts % (Manual) Baso # (Auto) Lymphocytes % (Manual) Monocytes % (Manual) Eosinophils % (Manual) Basophils % (Manual) Seg Neutrophils # Seg Neutrophils # Man Lymphocytes # (Manual) Monocytes # (Manual) Eosinophils # (Manual) Nucleated RBC % Basophils # (Manual) PT INR APTT Heparin Anti-Xa Level 0.20 L ABG pH POC ABG pO2 ABG pO2 ABG HCO3 ABG O2 Saturation ABG Base Excess POC ABG pCO2 ABG Hemoglobin ABG Oxyhemoglobin ABG Glucose Oxyhemoglobin Sodium Potassium Chloride Carbon Dioxide BUN Creatinine Glucose POC Glucose 144 H 141 H Lactic Acid Calcium Phosphorus Magnesium AST ALT Lactate Dehydrogenase CK-MB (CK-2) C-Reactive Protein NT-Pro-B Natriuret Pep Total Protein Albumin Arterial Blood Glucose Urine WBC (Auto) 12/30/19 12/30/19 12/30/19 03:58 03:58 04:59 WBC RBC 3.54 L Hgb 9.8 L Hct 30.7 L MCHC RDW 16.8 H MCV MCH Lymph % (Auto) [place] % (Auto) [place] # Eos # Lymph # (Auto) [place] # (Auto) Eos # (Auto) Seg Neutrophils % Seg Neuts % (Manual) Baso # (Auto) Lymphocytes % (Manual) Monocytes % (Manual) Eosinophils % (Manual) Basophils % (Manual) Seg Neutrophils # Seg Neutrophils # Man Lymphocytes # (Manual) Monocytes # (Manual) Eosinophils # (Manual) Nucleated RBC % Basophils # (Manual) PT INR APTT Heparin Anti-Xa Level ABG pH POC ABG pO2 ABG pO2 ABG HCO3 29.8 H ABG O2 Saturation ABG Base Excess 4.8 H POC ABG pCO2 ABG Hemoglobin 11.2 L ABG Oxyhemoglobin ABG Glucose Oxyhemoglobin 93.8 L Sodium Potassium Chloride 97.8 L Carbon Dioxide BUN 26 H Creatinine Glucose 168 H POC Glucose Lactic Acid Calcium Phosphorus Magnesium AST ALT Lactate Dehydrogenase CK-MB (CK-2) C-Reactive Protein NT-Pro-B Natriuret Pep Total Protein Albumin Arterial Blood Glucose Urine WBC (Auto) 12/30/19 12/30/19 12/30/19 05:45 11:34 17:28 WBC RBC Hgb Hct MCHC RDW MCV MCH Lymph % (Auto) [place] % (Auto) [place] # Eos # Lymph # (Auto) [place] # (Auto) Eos # (Auto) Seg Neutrophils % Seg Neuts % (Manual) Baso # (Auto) Lymphocytes % (Manual) Monocytes % (Manual) Eosinophils % (Manual) Basophils % (Manual) Seg Neutrophils # Seg Neutrophils # Man Lymphocytes # (Manual) Monocytes # (Manual) Eosinophils # (Manual) Nucleated RBC % Basophils # (Manual) PT INR APTT Heparin Anti-Xa Level ABG pH POC ABG pO2 ABG pO2 ABG HCO3 ABG O2 Saturation ABG Base Excess POC ABG pCO2 ABG Hemoglobin ABG Oxyhemoglobin ABG Glucose Oxyhemoglobin Sodium Potassium Chloride Carbon Dioxide BUN Creatinine Glucose POC Glucose 163 H 180 H 150 H Lactic Acid Calcium Phosphorus Magnesium AST ALT Lactate Dehydrogenase CK-MB (CK-2) C-Reactive Protein NT-Pro-B Natriuret Pep Total Protein Albumin Arterial Blood Glucose Urine WBC (Auto) 12/30/19 12/31/19 12/31/19 23:43 04:55 05:07 WBC RBC Hgb Hct MCHC RDW MCV MCH Lymph % (Auto) [place] % (Auto) [place] # Eos # Lymph # (Auto) [place] # (Auto) Eos # (Auto) Seg Neutrophils % Seg Neuts % (Manual) Baso # (Auto) Lymphocytes % (Manual) Monocytes % (Manual) Eosinophils % (Manual) Basophils % (Manual) Seg Neutrophils # Seg Neutrophils # Man Lymphocytes # (Manual) Monocytes # (Manual) Eosinophils # (Manual) Nucleated RBC % Basophils # (Manual) PT INR APTT Heparin Anti-Xa Level ABG pH POC ABG pO2 ABG pO2 ABG HCO3 ABG O2 Saturation ABG Base Excess POC ABG pCO2 ABG Hemoglobin ABG Oxyhemoglobin ABG Glucose Oxyhemoglobin Sodium Potassium 5.6 H D Chloride Carbon Dioxide BUN 33 H Creatinine Glucose 131 H POC Glucose 142 H 134 H Lactic Acid Calcium Phosphorus Magnesium AST ALT Lactate Dehydrogenase CK-MB (CK-2) C-Reactive Protein NT-Pro-B Natriuret Pep Total Protein Albumin Arterial Blood Glucose Urine WBC (Auto) 12/31/19 12/31/19 12/31/19 11:30 17:19 17:36 WBC RBC Hgb Hct MCHC RDW MCV MCH Lymph % (Auto) [place] % (Auto) [place] # Eos # Lymph # (Auto) [place] # (Auto) Eos # (Auto) Seg Neutrophils % Seg Neuts % (Manual) Baso # (Auto) Lymphocytes % (Manual) Monocytes % (Manual) Eosinophils % (Manual) Basophils % (Manual) Seg Neutrophils # Seg Neutrophils # Man Lymphocytes # (Manual) Monocytes # (Manual) Eosinophils # (Manual) Nucleated RBC % Basophils # (Manual) PT INR APTT Heparin Anti-Xa Level ABG pH POC ABG pO2 ABG pO2 ABG HCO3 ABG O2 Saturation ABG Base Excess POC ABG pCO2 ABG Hemoglobin ABG Oxyhemoglobin ABG Glucose Oxyhemoglobin Sodium Potassium Chloride Carbon Dioxide BUN 35 H Creatinine Glucose 156 H POC Glucose 158 H 181 H Lactic Acid Calcium Phosphorus Magnesium AST ALT Lactate Dehydrogenase CK-MB (CK-2) C-Reactive Protein NT-Pro-B Natriuret Pep Total Protein Albumin Arterial Blood Glucose Urine WBC (Auto) 12/31/19 12/31/19 12/31/19 18:16 19:41 21:53 WBC RBC Hgb Hct MCHC RDW MCV MCH Lymph % (Auto) [place] % (Auto) [place] # Eos # Lymph # (Auto) [place] # (Auto) Eos # (Auto) Seg Neutrophils % Seg Neuts % (Manual) Baso # (Auto) Lymphocytes % (Manual) Monocytes % (Manual) Eosinophils % (Manual) Basophils % (Manual) Seg Neutrophils # Seg Neutrophils # Man Lymphocytes # (Manual) Monocytes # (Manual) Eosinophils # (Manual) Nucleated RBC % Basophils # (Manual) PT INR APTT Heparin Anti-Xa Level 0.20 L ABG pH POC ABG pO2 ABG pO2 ABG HCO3 ABG O2 Saturation ABG Base Excess POC ABG pCO2 ABG Hemoglobin ABG Oxyhemoglobin ABG Glucose Oxyhemoglobin Sodium Potassium Chloride Carbon Dioxide BUN 34 H Creatinine Glucose 169 H POC Glucose 141 H Lactic Acid Calcium Phosphorus Magnesium AST ALT Lactate Dehydrogenase CK-MB (CK-2) C-Reactive Protein NT-Pro-B Natriuret Pep Total Protein Albumin Arterial Blood Glucose Urine WBC (Auto) 12/31/19 01/01/20 01/01/20 23:51 05:17 10:40 WBC RBC Hgb Hct MCHC RDW MCV MCH Lymph % (Auto) [place] % (Auto) [place] # Eos # Lymph # (Auto) [place] # (Auto) Eos # (Auto) Seg Neutrophils % Seg Neuts % (Manual) Baso # (Auto) Lymphocytes % (Manual) Monocytes % (Manual) Eosinophils % (Manual) Basophils % (Manual) Seg Neutrophils # Seg Neutrophils # Man Lymphocytes # (Manual) Monocytes # (Manual) Eosinophils # (Manual) Nucleated RBC % Basophils # (Manual) PT INR APTT Heparin Anti-Xa Level ABG pH POC ABG pO2 ABG pO2 ABG HCO3 ABG O2 Saturation ABG Base Excess POC ABG pCO2 ABG Hemoglobin ABG Oxyhemoglobin ABG Glucose Oxyhemoglobin Sodium Potassium Chloride Carbon Dioxide BUN 31 H Creatinine 0.7 L Glucose 137 H POC Glucose 131 H 155 H Lactic Acid Calcium Phosphorus Magnesium AST 73 H ALT 97 H Lactate Dehydrogenase CK-MB (CK-2) C-Reactive Protein NT-Pro-B Natriuret Pep 3866 H Total Protein Albumin 2.8 L Arterial Blood Glucose Urine WBC (Auto) 01/01/20 01/01/20 01/01/20 12:26 15:33 17:53 WBC 14.3 H RBC 3.35 L Hgb 9.1 L Hct 28.8 L MCHC RDW 17.0 H MCV MCH 27 L Lymph % (Auto) 7.0 L [place] % (Auto) 7.6 H [place] # Eos # Lymph # (Auto) 1.0 L [place] # (Auto) 1.1 H Eos # (Auto) Seg Neutrophils % 83.3 H Seg Neuts % (Manual) Baso # (Auto) Lymphocytes % (Manual) Monocytes % (Manual) Eosinophils % (Manual) Basophils % (Manual) Seg Neutrophils # 12.0 H Seg Neutrophils # Man Lymphocytes # (Manual) Monocytes # (Manual) Eosinophils # (Manual) Nucleated RBC % Basophils # (Manual) PT INR APTT Heparin Anti-Xa Level ABG pH POC ABG pO2 ABG pO2 ABG HCO3 ABG O2 Saturation ABG Base Excess POC ABG pCO2 ABG Hemoglobin ABG Oxyhemoglobin ABG Glucose Oxyhemoglobin Sodium Potassium Chloride Carbon Dioxide BUN Creatinine Glucose POC Glucose 128 H 128 H Lactic Acid Calcium Phosphorus Magnesium AST ALT Lactate Dehydrogenase CK-MB (CK-2) C-Reactive Protein NT-Pro-B Natriuret Pep Total Protein Albumin Arterial Blood Glucose Urine WBC (Auto) 01/01/20 01/02/20 01/02/20 23:04 05:39 07:00 WBC RBC Hgb Hct MCHC RDW MCV MCH Lymph % (Auto) [place] % (Auto) [place] # Eos # Lymph # (Auto) [place] # (Auto) Eos # (Auto) Seg Neutrophils % Seg Neuts % (Manual) Baso # (Auto) Lymphocytes % (Manual) Monocytes % (Manual) Eosinophils % (Manual) Basophils % (Manual) Seg Neutrophils # Seg Neutrophils # Man Lymphocytes # (Manual) Monocytes # (Manual) Eosinophils # (Manual) Nucleated RBC % Basophils # (Manual) PT INR APTT Heparin Anti-Xa Level 0.13 L ABG pH POC ABG pO2 ABG pO2 ABG HCO3 ABG O2 Saturation ABG Base Excess POC ABG pCO2 ABG Hemoglobin ABG Oxyhemoglobin ABG Glucose Oxyhemoglobin Sodium Potassium Chloride Carbon Dioxide BUN Creatinine Glucose POC Glucose 120 H 169 H Lactic Acid Calcium Phosphorus Magnesium AST ALT Lactate Dehydrogenase CK-MB (CK-2) C-Reactive Protein NT-Pro-B Natriuret Pep Total Protein Albumin Arterial Blood Glucose Urine WBC (Auto) 01/02/20 01/02/20 01/02/20 12:15 14:06 17:58 WBC RBC Hgb Hct MCHC RDW MCV MCH Lymph % (Auto) [place] % (Auto) [place] # Eos # Lymph # (Auto) [place] # (Auto) Eos # (Auto) Seg Neutrophils % Seg Neuts % (Manual) Baso # (Auto) Lymphocytes % (Manual) Monocytes % (Manual) Eosinophils % (Manual) Basophils % (Manual) Seg Neutrophils # Seg Neutrophils # Man Lymphocytes # (Manual) Monocytes # (Manual) Eosinophils # (Manual) Nucleated RBC % Basophils # (Manual) PT INR APTT Heparin Anti-Xa Level < 0.10 L ABG pH POC ABG pO2 ABG pO2 ABG HCO3 ABG O2 Saturation ABG Base Excess POC ABG pCO2 ABG Hemoglobin ABG Oxyhemoglobin ABG Glucose Oxyhemoglobin Sodium Potassium Chloride Carbon Dioxide BUN Creatinine Glucose POC Glucose 190 H 198 H Lactic Acid Calcium Phosphorus Magnesium AST ALT Lactate Dehydrogenase CK-MB (CK-2) C-Reactive Protein NT-Pro-B Natriuret Pep Total Protein Albumin Arterial Blood Glucose Urine WBC (Auto) 01/02/20 01/02/20 01/03/20 21:43 23:33 05:42 WBC RBC Hgb Hct MCHC RDW MCV MCH Lymph % (Auto) [place] % (Auto) [place] # Eos # Lymph # (Auto) [place] # (Auto) Eos # (Auto) Seg Neutrophils % Seg Neuts % (Manual) Baso # (Auto) Lymphocytes % (Manual) Monocytes % (Manual) Eosinophils % (Manual) Basophils % (Manual) Seg Neutrophils # Seg Neutrophils # Man Lymphocytes # (Manual) Monocytes # (Manual) Eosinophils # (Manual) Nucleated RBC % Basophils # (Manual) PT INR APTT Heparin Anti-Xa Level 0.10 L ABG pH POC ABG pO2 ABG pO2 ABG HCO3 ABG O2 Saturation ABG Base Excess POC ABG pCO2 ABG Hemoglobin ABG Oxyhemoglobin ABG Glucose Oxyhemoglobin Sodium Potassium Chloride Carbon Dioxide BUN Creatinine Glucose POC Glucose 180 H 163 H Lactic Acid Calcium Phosphorus Magnesium AST ALT Lactate Dehydrogenase CK-MB (CK-2) C-Reactive Protein NT-Pro-B Natriuret Pep Total Protein Albumin Arterial Blood Glucose Urine WBC (Auto) 01/03/20 01/03/20 01/03/20 06:50 07:25 07:45 WBC 12.1 H RBC 3.35 L Hgb 9.0 L Hct 28.9 L MCHC 31 L RDW 16.6 H MCV MCH 27 L Lymph % (Auto) 13.0 L [place] % (Auto) 8.6 H [place] # Eos # Lymph # (Auto) [place] # (Auto) 1.0 H Eos # (Auto) Seg Neutrophils % 75.9 H Seg Neuts % (Manual) Baso # (Auto) Lymphocytes % (Manual) Monocytes % (Manual) Eosinophils % (Manual) Basophils % (Manual) Seg Neutrophils # 9.2 H Seg Neutrophils # Man Lymphocytes # (Manual) Monocytes # (Manual) Eosinophils # (Manual) Nucleated RBC % Basophils # (Manual) PT INR APTT Heparin Anti-Xa Level 0.29 L ABG pH POC ABG pO2 ABG pO2 ABG HCO3 ABG O2 Saturation ABG Base Excess POC ABG pCO2 ABG Hemoglobin ABG Oxyhemoglobin ABG Glucose Oxyhemoglobin Sodium Potassium 3.3 L D Chloride Carbon Dioxide 35 H D BUN 23 H Creatinine 0.6 L Glucose 149 H POC Glucose Lactic Acid Calcium Phosphorus Magnesium AST ALT 88 H Lactate Dehydrogenase CK-MB (CK-2) C-Reactive Protein NT-Pro-B Natriuret Pep Total Protein 6.2 L Albumin 2.9 L Arterial Blood Glucose Urine WBC (Auto) 01/03/20 01/03/20 01/03/20 12:05 17:42 18:30 WBC RBC Hgb Hct MCHC RDW MCV MCH Lymph % (Auto) [place] % (Auto) [place] # Eos # Lymph # (Auto) [place] # (Auto) Eos # (Auto) Seg Neutrophils % Seg Neuts % (Manual) Baso # (Auto) Lymphocytes % (Manual) Monocytes % (Manual) Eosinophils % (Manual) Basophils % (Manual) Seg Neutrophils # Seg Neutrophils # Man Lymphocytes # (Manual) Monocytes # (Manual) Eosinophils # (Manual) Nucleated RBC % Basophils # (Manual) PT INR APTT Heparin Anti-Xa Level ABG pH POC ABG pO2 ABG pO2 70.7 L ABG HCO3 36.1 H ABG O2 Saturation 94.4 L ABG Base Excess 10.0 H POC ABG pCO2 ABG Hemoglobin 9.7 L ABG Oxyhemoglobin ABG Glucose Oxyhemoglobin 91.8 L Sodium Potassium Chloride Carbon Dioxide BUN Creatinine Glucose POC Glucose 128 H 132 H Lactic Acid Calcium Phosphorus Magnesium AST ALT Lactate Dehydrogenase CK-MB (CK-2) C-Reactive Protein NT-Pro-B Natriuret Pep Total Protein Albumin Arterial Blood Glucose Urine WBC (Auto) 01/04/20 01/04/20 01/04/20 00:10 04:26 05:23 WBC RBC Hgb Hct MCHC RDW MCV MCH Lymph % (Auto) [place] % (Auto) [place] # Eos # Lymph # (Auto) [place] # (Auto) Eos # (Auto) Seg Neutrophils % Seg Neuts % (Manual) Baso # (Auto) Lymphocytes % (Manual) Monocytes % (Manual) Eosinophils % (Manual) Basophils % (Manual) Seg Neutrophils # Seg Neutrophils # Man Lymphocytes # (Manual) Monocytes # (Manual) Eosinophils # (Manual) Nucleated RBC % Basophils # (Manual) PT INR APTT Heparin Anti-Xa Level 0.16 L ABG pH POC ABG pO2 ABG pO2 ABG HCO3 ABG O2 Saturation ABG Base Excess POC ABG pCO2 ABG Hemoglobin ABG Oxyhemoglobin ABG Glucose Oxyhemoglobin Sodium Potassium Chloride Carbon Dioxide BUN Creatinine Glucose POC Glucose 121 H 119 H Lactic Acid Calcium Phosphorus Magnesium AST ALT Lactate Dehydrogenase CK-MB (CK-2) C-Reactive Protein NT-Pro-B Natriuret Pep Total Protein Albumin Arterial Blood Glucose Urine WBC (Auto) 01/04/20 01/04/20 01/04/20 09:50 09:50 12:18 WBC 15.4 H RBC 3.30 L Hgb 8.7 L Hct 28.2 L MCHC 31 L RDW 17.0 H MCV MCH 26 L Lymph % (Auto) [place] % (Auto) 7.6 H [place] # Eos # Lymph # (Auto) [place] # (Auto) 1.2 H Eos # (Auto) Seg Neutrophils % 75.4 H Seg Neuts % (Manual) Baso # (Auto) Lymphocytes % (Manual) Monocytes % (Manual) Eosinophils % (Manual) Basophils % (Manual) Seg Neutrophils # 11.6 H Seg Neutrophils # Man Lymphocytes # (Manual) Monocytes # (Manual) Eosinophils # (Manual) Nucleated RBC % Basophils # (Manual) PT INR APTT Heparin Anti-Xa Level ABG pH POC ABG pO2 ABG pO2 ABG HCO3 ABG O2 Saturation ABG Base Excess POC ABG pCO2 ABG Hemoglobin ABG Oxyhemoglobin ABG Glucose Oxyhemoglobin Sodium 148 H Potassium 3.5 L Chloride Carbon Dioxide 32 H BUN Creatinine 0.6 L Glucose 114 H POC Glucose 111 H Lactic Acid Calcium Phosphorus Magnesium AST ALT 59 H Lactate Dehydrogenase CK-MB (CK-2) C-Reactive Protein NT-Pro-B Natriuret Pep Total Protein Albumin 2.6 L Arterial Blood Glucose Urine WBC (Auto) 01/05/20 01/05/20 01/05/20 04:05 04:05 05:19 WBC 11.7 H RBC 3.50 L Hgb 9.3 L Hct 29.9 L MCHC 31 L RDW 16.6 H MCV MCH 27 L Lymph % (Auto) 13.1 L [place] % (Auto) 9.7 H [place] # Eos # Lymph # (Auto) [place] # (Auto) 1.1 H Eos # (Auto) Seg Neutrophils % 74.0 H Seg Neuts % (Manual) Baso # (Auto) Lymphocytes % (Manual) Monocytes % (Manual) Eosinophils % (Manual) Basophils % (Manual) Seg Neutrophils # 8.6 H Seg Neutrophils # Man Lymphocytes # (Manual) Monocytes # (Manual) Eosinophils # (Manual) Nucleated RBC % Basophils # (Manual) PT INR APTT Heparin Anti-Xa Level ABG pH POC ABG pO2 ABG pO2 ABG HCO3 ABG O2 Saturation ABG Base Excess POC ABG pCO2 ABG Hemoglobin ABG Oxyhemoglobin ABG Glucose Oxyhemoglobin Sodium 151 H Potassium Chloride Carbon Dioxide 34 H BUN Creatinine 0.7 L Glucose POC Glucose 112 H Lactic Acid Calcium Phosphorus Magnesium AST ALT 59 H Lactate Dehydrogenase CK-MB (CK-2) C-Reactive Protein NT-Pro-B Natriuret Pep Total Protein 5.8 L Albumin 2.6 L Arterial Blood Glucose Urine WBC (Auto) 01/05/20 01/06/20 01/06/20 16:04 00:23 04:44 WBC RBC 3.36 L Hgb 8.9 L Hct 28.7 L MCHC 31 L RDW 16.9 H MCV MCH 26 L Lymph % (Auto) [place] % (Auto) 9.4 H [place] # Eos # Lymph # (Auto) [place] # (Auto) Eos # (Auto) Seg Neutrophils % Seg Neuts % (Manual) Baso # (Auto) Lymphocytes % (Manual) Monocytes % (Manual) Eosinophils % (Manual) Basophils % (Manual) Seg Neutrophils # Seg Neutrophils # Man Lymphocytes # (Manual) Monocytes # (Manual) Eosinophils # (Manual) Nucleated RBC % Basophils # (Manual) PT INR APTT Heparin Anti-Xa Level ABG pH POC ABG pO2 ABG pO2 ABG HCO3 ABG O2 Saturation ABG Base Excess POC ABG pCO2 ABG Hemoglobin ABG Oxyhemoglobin ABG Glucose Oxyhemoglobin Sodium 151 H Potassium 3.2 L Chloride Carbon Dioxide 34 H BUN Creatinine 0.6 L Glucose POC Glucose 107 H Lactic Acid Calcium Phosphorus Magnesium AST ALT Lactate Dehydrogenase CK-MB (CK-2) C-Reactive Protein NT-Pro-B Natriuret Pep Total Protein Albumin Arterial Blood Glucose Urine WBC (Auto) 01/06/20 01/06/20 01/06/20 04:44 05:33 12:04 WBC RBC Hgb Hct MCHC RDW MCV MCH Lymph % (Auto) [place] % (Auto) [place] # Eos # Lymph # (Auto) [place] # (Auto) Eos # (Auto) Seg Neutrophils % Seg Neuts % (Manual) Baso # (Auto) Lymphocytes % (Manual) Monocytes % (Manual) Eosinophils % (Manual) Basophils % (Manual) Seg Neutrophils # Seg Neutrophils # Man Lymphocytes # (Manual) Monocytes # (Manual) Eosinophils # (Manual) Nucleated RBC % Basophils # (Manual) PT INR APTT Heparin Anti-Xa Level ABG pH POC ABG pO2 ABG pO2 ABG HCO3 ABG O2 Saturation ABG Base Excess POC ABG pCO2 ABG Hemoglobin ABG Oxyhemoglobin ABG Glucose Oxyhemoglobin Sodium 151 H Potassium 3.4 L Chloride Carbon Dioxide 33 H BUN Creatinine 0.6 L Glucose 118 H POC Glucose 118 H 123 H Lactic Acid Calcium Phosphorus Magnesium AST ALT Lactate Dehydrogenase CK-MB (CK-2) C-Reactive Protein NT-Pro-B Natriuret Pep Total Protein 6.2 L Albumin 2.6 L Arterial Blood Glucose Urine WBC (Auto) 01/06/20 01/07/20 01/07/20 17:54 00:06 04:10 WBC RBC 3.42 L Hgb 8.9 L Hct 29.0 L MCHC 31 L RDW 17.1 H MCV MCH 26 L Lymph % (Auto) [place] % (Auto) 8.4 H [place] # Eos # Lymph # (Auto) [place] # (Auto) Eos # (Auto) Seg Neutrophils % Seg Neuts % (Manual) Baso # (Auto) Lymphocytes % (Manual) Monocytes % (Manual) Eosinophils % (Manual) Basophils % (Manual) Seg Neutrophils # Seg Neutrophils # Man Lymphocytes # (Manual) Monocytes # (Manual) Eosinophils # (Manual) Nucleated RBC % Basophils # (Manual) PT INR APTT Heparin Anti-Xa Level ABG pH POC ABG pO2 ABG pO2 ABG HCO3 ABG O2 Saturation ABG Base Excess POC ABG pCO2 ABG Hemoglobin ABG Oxyhemoglobin ABG Glucose Oxyhemoglobin Sodium Potassium Chloride Carbon Dioxide BUN Creatinine Glucose POC Glucose 112 H 126 H Lactic Acid Calcium Phosphorus Magnesium AST ALT Lactate Dehydrogenase CK-MB (CK-2) C-Reactive Protein NT-Pro-B Natriuret Pep Total Protein Albumin Arterial Blood Glucose Urine WBC (Auto) 01/07/20 01/07/20 01/07/20 04:10 05:59 12:27 WBC RBC Hgb Hct MCHC RDW MCV MCH Lymph % (Auto) [place] % (Auto) [place] # Eos # Lymph # (Auto) [place] # (Auto) Eos # (Auto) Seg Neutrophils % Seg Neuts % (Manual) Baso # (Auto) Lymphocytes % (Manual) Monocytes % (Manual) Eosinophils % (Manual) Basophils % (Manual) Seg Neutrophils # Seg Neutrophils # Man Lymphocytes # (Manual) Monocytes # (Manual) Eosinophils # (Manual) Nucleated RBC % Basophils # (Manual) PT INR APTT Heparin Anti-Xa Level ABG pH POC ABG pO2 ABG pO2 ABG HCO3 ABG O2 Saturation ABG Base Excess POC ABG pCO2 ABG Hemoglobin ABG Oxyhemoglobin ABG Glucose Oxyhemoglobin Sodium 153 H Potassium 3.5 L Chloride Carbon Dioxide 34 H BUN Creatinine 0.6 L Glucose 121 H POC Glucose 121 H 126 H Lactic Acid Calcium Phosphorus Magnesium AST ALT Lactate Dehydrogenase CK-MB (CK-2) C-Reactive Protein NT-Pro-B Natriuret Pep Total Protein 5.9 L Albumin 2.4 L Arterial Blood Glucose Urine WBC (Auto) 01/07/20 01/08/20 01/08/20 18:12 00:03 05:41 WBC RBC Hgb Hct MCHC RDW MCV MCH Lymph % (Auto) [place] % (Auto) [place] # Eos # Lymph # (Auto) [place] # (Auto) Eos # (Auto) Seg Neutrophils % Seg Neuts % (Manual) Baso # (Auto) Lymphocytes % (Manual) Monocytes % (Manual) Eosinophils % (Manual) Basophils % (Manual) Seg Neutrophils # Seg Neutrophils # Man Lymphocytes # (Manual) Monocytes # (Manual) Eosinophils # (Manual) Nucleated RBC % Basophils # (Manual) PT INR APTT Heparin Anti-Xa Level ABG pH POC ABG pO2 ABG pO2 ABG HCO3 ABG O2 Saturation ABG Base Excess POC ABG pCO2 ABG Hemoglobin ABG Oxyhemoglobin ABG Glucose Oxyhemoglobin Sodium Potassium Chloride Carbon Dioxide BUN Creatinine Glucose POC Glucose 124 H 130 H 138 H Lactic Acid Calcium Phosphorus Magnesium AST ALT Lactate Dehydrogenase CK-MB (CK-2) C-Reactive Protein NT-Pro-B Natriuret Pep Total Protein Albumin Arterial Blood Glucose Urine WBC (Auto) 01/08/20 01/08/20 01/08/20 09:28 11:42 18:21 WBC RBC Hgb Hct MCHC RDW MCV MCH Lymph % (Auto) [place] % (Auto) [place] # Eos # Lymph # (Auto) [place] # (Auto) Eos # (Auto) Seg Neutrophils % Seg Neuts % (Manual) Baso # (Auto) Lymphocytes % (Manual) Monocytes % (Manual) Eosinophils % (Manual) Basophils % (Manual) Seg Neutrophils # Seg Neutrophils # Man Lymphocytes # (Manual) Monocytes # (Manual) Eosinophils # (Manual) Nucleated RBC % Basophils # (Manual) PT INR APTT Heparin Anti-Xa Level ABG pH POC ABG pO2 ABG pO2 ABG HCO3 ABG O2 Saturation ABG Base Excess POC ABG pCO2 ABG Hemoglobin ABG Oxyhemoglobin ABG Glucose Oxyhemoglobin Sodium Potassium Chloride Carbon Dioxide BUN Creatinine Glucose POC Glucose 181 H 150 H 129 H Lactic Acid Calcium Phosphorus Magnesium AST ALT Lactate Dehydrogenase CK-MB (CK-2) C-Reactive Protein NT-Pro-B Natriuret Pep Total Protein Albumin Arterial Blood Glucose Urine WBC (Auto) 01/08/20 01/08/20 01/09/20 19:25 23:55 04:11 WBC RBC 3.43 L Hgb 8.9 L Hct 28.7 L MCHC 31 L RDW 17.6 H MCV MCH 26 L Lymph % (Auto) [place] % (Auto) 8.6 H [place] # Eos # Lymph # (Auto) [place] # (Auto) Eos # (Auto) Seg Neutrophils % Seg Neuts % (Manual) Baso # (Auto) Lymphocytes % (Manual) Monocytes % (Manual) Eosinophils % (Manual) Basophils % (Manual) Seg Neutrophils # Seg Neutrophils # Man Lymphocytes # (Manual) Monocytes # (Manual) Eosinophils # (Manual) Nucleated RBC % Basophils # (Manual) PT INR APTT Heparin Anti-Xa Level ABG pH POC ABG pO2 ABG pO2 ABG HCO3 ABG O2 Saturation ABG Base Excess POC ABG pCO2 ABG Hemoglobin ABG Oxyhemoglobin ABG Glucose Oxyhemoglobin Sodium Potassium Chloride Carbon Dioxide BUN Creatinine 0.7 L Glucose 117 H POC Glucose 132 H Lactic Acid Calcium Phosphorus Magnesium AST ALT Lactate Dehydrogenase CK-MB (CK-2) C-Reactive Protein NT-Pro-B Natriuret Pep Total Protein Albumin Arterial Blood Glucose Urine WBC (Auto) 01/09/20 01/09/20 01/09/20 04:11 05:38 22:58 WBC RBC Hgb Hct MCHC RDW MCV MCH Lymph % (Auto) [place] % (Auto) [place] # Eos # Lymph # (Auto) [place] # (Auto) Eos # (Auto) Seg Neutrophils % Seg Neuts % (Manual) Baso # (Auto) Lymphocytes % (Manual) Monocytes % (Manual) Eosinophils % (Manual) Basophils % (Manual) Seg Neutrophils # Seg Neutrophils # Man Lymphocytes # (Manual) Monocytes # (Manual) Eosinophils # (Manual) Nucleated RBC % Basophils # (Manual) PT INR APTT Heparin Anti-Xa Level ABG pH POC ABG pO2 ABG pO2 ABG HCO3 ABG O2 Saturation ABG Base Excess POC ABG pCO2 ABG Hemoglobin ABG Oxyhemoglobin ABG Glucose Oxyhemoglobin Sodium 147 H Potassium 3.3 L D Chloride Carbon Dioxide 32 H BUN Creatinine 0.6 L Glucose 106 H POC Glucose 107 H 113 H Lactic Acid Calcium Phosphorus Magnesium AST ALT Lactate Dehydrogenase CK-MB (CK-2) C-Reactive Protein NT-Pro-B Natriuret Pep Total Protein Albumin Arterial Blood Glucose Urine WBC (Auto) 01/10/20 01/10/20 01/10/20 04:05 11:36 17:54 WBC RBC Hgb Hct MCHC RDW MCV MCH Lymph % (Auto) [place] % (Auto) [place] # Eos # Lymph # (Auto) [place] # (Auto) Eos # (Auto) Seg Neutrophils % Seg Neuts % (Manual) Baso # (Auto) Lymphocytes % (Manual) Monocytes % (Manual) Eosinophils % (Manual) Basophils % (Manual) Seg Neutrophils # Seg Neutrophils # Man Lymphocytes # (Manual) Monocytes # (Manual) Eosinophils # (Manual) Nucleated RBC % Basophils # (Manual) PT INR APTT Heparin Anti-Xa Level ABG pH POC ABG pO2 ABG pO2 ABG HCO3 ABG O2 Saturation ABG Base Excess POC ABG pCO2 ABG Hemoglobin ABG Oxyhemoglobin ABG Glucose Oxyhemoglobin Sodium Potassium Chloride Carbon Dioxide BUN Creatinine 0.7 L Glucose 110 H POC Glucose 129 H 117 H Lactic Acid Calcium Phosphorus Magnesium AST ALT Lactate Dehydrogenase CK-MB (CK-2) C-Reactive Protein NT-Pro-B Natriuret Pep Total Protein Albumin Arterial Blood Glucose Urine WBC (Auto) 01/10/20 01/11/20 01/11/20 23:52 03:19 12:09 WBC RBC Hgb Hct MCHC RDW MCV MCH Lymph % (Auto) [place] % (Auto) [place] # Eos # Lymph # (Auto) [place] # (Auto) Eos # (Auto) Seg Neutrophils % Seg Neuts % (Manual) Baso # (Auto) Lymphocytes % (Manual) Monocytes % (Manual) Eosinophils % (Manual) Basophils % (Manual) Seg Neutrophils # Seg Neutrophils # Man Lymphocytes # (Manual) Monocytes # (Manual) Eosinophils # (Manual) Nucleated RBC % Basophils # (Manual) PT INR APTT Heparin Anti-Xa Level ABG pH POC ABG pO2 ABG pO2 ABG HCO3 ABG O2 Saturation ABG Base Excess POC ABG pCO2 ABG Hemoglobin ABG Oxyhemoglobin ABG Glucose Oxyhemoglobin Sodium Potassium Chloride Carbon Dioxide BUN Creatinine Glucose POC Glucose 117 H 136 H 115 H Lactic Acid Calcium Phosphorus Magnesium AST ALT Lactate Dehydrogenase CK-MB (CK-2) C-Reactive Protein NT-Pro-B Natriuret Pep Total Protein Albumin Arterial Blood Glucose Urine WBC (Auto) 01/11/20 01/11/20 01/12/20 18:27 23:28 00:23 WBC RBC Hgb 9.8 L Hct 31.6 L MCHC 31 L RDW 17.8 H MCV 83 L MCH 26 L Lymph % (Auto) [place] % (Auto) 8.0 H [place] # Eos # Lymph # (Auto) [place] # (Auto) Eos # (Auto) Seg Neutrophils % Seg Neuts % (Manual) Baso # (Auto) Lymphocytes % (Manual) Monocytes % (Manual) Eosinophils % (Manual) Basophils % (Manual) Seg Neutrophils # Seg Neutrophils # Man Lymphocytes # (Manual) Monocytes # (Manual) Eosinophils # (Manual) Nucleated RBC % Basophils # (Manual) PT INR APTT Heparin Anti-Xa Level ABG pH POC ABG pO2 ABG pO2 ABG HCO3 ABG O2 Saturation ABG Base Excess POC ABG pCO2 ABG Hemoglobin ABG Oxyhemoglobin ABG Glucose Oxyhemoglobin Sodium Potassium Chloride Carbon Dioxide BUN Creatinine Glucose POC Glucose 118 H 122 H Lactic Acid Calcium Phosphorus Magnesium AST ALT Lactate Dehydrogenase CK-MB (CK-2) C-Reactive Protein NT-Pro-B Natriuret Pep Total Protein Albumin Arterial Blood Glucose Urine WBC (Auto) 01/12/20 01/12/20 01/12/20 00:23 04:18 04:18 WBC RBC Hgb 9.6 L Hct 30.9 L MCHC 31 L RDW 17.3 H MCV 81 L MCH 25 L Lymph % (Auto) [place] % (Auto) [place] # Eos # Lymph # (Auto) [place] # (Auto) Eos # (Auto) Seg Neutrophils % Seg Neuts % (Manual) Baso # (Auto) Lymphocytes % (Manual) Monocytes % (Manual) Eosinophils % (Manual) Basophils % (Manual) Seg Neutrophils # Seg Neutrophils # Man Lymphocytes # (Manual) Monocytes # (Manual) Eosinophils # (Manual) Nucleated RBC % Basophils # (Manual) PT INR APTT Heparin Anti-Xa Level ABG pH POC ABG pO2 ABG pO2 ABG HCO3 ABG O2 Saturation ABG Base Excess POC ABG pCO2 ABG Hemoglobin ABG Oxyhemoglobin ABG Glucose Oxyhemoglobin Sodium Potassium Chloride Carbon Dioxide BUN Creatinine 0.7 L 0.7 L Glucose 111 H 108 H POC Glucose Lactic Acid Calcium Phosphorus Magnesium AST ALT Lactate Dehydrogenase CK-MB (CK-2) C-Reactive Protein NT-Pro-B Natriuret Pep Total Protein Albumin 2.6 L Arterial Blood Glucose Urine WBC (Auto) 01/12/20 01/12/20 01/12/20 06:03 12:27 13:58 WBC RBC Hgb Hct MCHC RDW MCV MCH Lymph % (Auto) [place] % (Auto) [place] # Eos # Lymph # (Auto) [place] # (Auto) Eos # (Auto) Seg Neutrophils % Seg Neuts % (Manual) Baso # (Auto) Lymphocytes % (Manual) Monocytes % (Manual) Eosinophils % (Manual) Basophils % (Manual) Seg Neutrophils # Seg Neutrophils # Man Lymphocytes # (Manual) Monocytes # (Manual) Eosinophils # (Manual) Nucleated RBC % Basophils # (Manual) PT INR APTT Heparin Anti-Xa Level ABG pH 7.453 H POC ABG pO2 76.6 L ABG pO2 ABG HCO3 ABG O2 Saturation ABG Base Excess POC ABG pCO2 ABG Hemoglobin 10.3 L ABG Oxyhemoglobin ABG Glucose 99 H Oxyhemoglobin Sodium Potassium Chloride Carbon Dioxide BUN Creatinine Glucose POC Glucose 128 H 121 H Lactic Acid Calcium Phosphorus Magnesium AST ALT Lactate Dehydrogenase CK-MB (CK-2) C-Reactive Protein NT-Pro-B Natriuret Pep Total Protein Albumin Arterial Blood Glucose 99 H Urine WBC (Auto) 01/12/20 01/13/20 01/13/20 18:24 12:01 17:46 WBC RBC Hgb Hct MCHC RDW MCV MCH Lymph % (Auto) [place] % (Auto) [place] # Eos # Lymph # (Auto) [place] # (Auto) Eos # (Auto) Seg Neutrophils % Seg Neuts % (Manual) Baso # (Auto) Lymphocytes % (Manual) Monocytes % (Manual) Eosinophils % (Manual) Basophils % (Manual) Seg Neutrophils # Seg Neutrophils # Man Lymphocytes # (Manual) Monocytes # (Manual) Eosinophils # (Manual) Nucleated RBC % Basophils # (Manual) PT INR APTT Heparin Anti-Xa Level ABG pH POC ABG pO2 ABG pO2 ABG HCO3 ABG O2 Saturation ABG Base Excess POC ABG pCO2 ABG Hemoglobin ABG Oxyhemoglobin ABG Glucose Oxyhemoglobin Sodium Potassium Chloride Carbon Dioxide BUN Creatinine Glucose POC Glucose 119 H 107 H 124 H Lactic Acid Calcium Phosphorus Magnesium AST ALT Lactate Dehydrogenase CK-MB (CK-2) C-Reactive Protein NT-Pro-B Natriuret Pep Total Protein Albumin Arterial Blood Glucose Urine WBC (Auto) 01/13/20 01/14/20 01/14/20 20:40 00:10 05:33 WBC RBC Hgb Hct MCHC RDW MCV MCH Lymph % (Auto) [place] % (Auto) [place] # Eos # Lymph # (Auto) [place] # (Auto) Eos # (Auto) Seg Neutrophils % Seg Neuts % (Manual) Baso # (Auto) Lymphocytes % (Manual) Monocytes % (Manual) Eosinophils % (Manual) Basophils % (Manual) Seg Neutrophils # Seg Neutrophils # Man Lymphocytes # (Manual) Monocytes # (Manual) Eosinophils # (Manual) Nucleated RBC % Basophils # (Manual) PT INR APTT Heparin Anti-Xa Level ABG pH POC ABG pO2 ABG pO2 65.3 L ABG HCO3 31.8 H ABG O2 Saturation 93.5 L ABG Base Excess 6.7 H POC ABG pCO2 ABG Hemoglobin 13.3 L ABG Oxyhemoglobin ABG Glucose Oxyhemoglobin 90.9 L Sodium Potassium Chloride Carbon Dioxide BUN Creatinine Glucose POC Glucose 111 H 111 H Lactic Acid Calcium Phosphorus Magnesium AST ALT Lactate Dehydrogenase CK-MB (CK-2) C-Reactive Protein NT-Pro-B Natriuret Pep Total Protein Albumin Arterial Blood Glucose Urine WBC (Auto) 01/14/20 01/14/20 01/14/20 12:10 16:14 16:14 WBC RBC Hgb 10.6 L Hct 34.2 L MCHC 31 L RDW 18.3 H MCV 83 L MCH 26 L Lymph % (Auto) [place] % (Auto) 7.4 H [place] # Eos # Lymph # (Auto) [place] # (Auto) Eos # (Auto) Seg Neutrophils % 71.9 H Seg Neuts % (Manual) Baso # (Auto) Lymphocytes % (Manual) Monocytes % (Manual) Eosinophils % (Manual) Basophils % (Manual) Seg Neutrophils # Seg Neutrophils # Man Lymphocytes # (Manual) Monocytes # (Manual) Eosinophils # (Manual) Nucleated RBC % Basophils # (Manual) PT INR APTT Heparin Anti-Xa Level ABG pH POC ABG pO2 ABG pO2 ABG HCO3 ABG O2 Saturation ABG Base Excess POC ABG pCO2 ABG Hemoglobin ABG Oxyhemoglobin ABG Glucose Oxyhemoglobin Sodium Potassium Chloride Carbon Dioxide 31 H BUN Creatinine 0.6 L Glucose 131 H POC Glucose 139 H Lactic Acid Calcium Phosphorus Magnesium AST ALT Lactate Dehydrogenase CK-MB (CK-2) C-Reactive Protein NT-Pro-B Natriuret Pep Total Protein Albumin Arterial Blood Glucose Urine WBC (Auto) 01/14/20 01/15/20 01/15/20 18:05 00:52 05:35 WBC RBC Hgb Hct MCHC RDW MCV MCH Lymph % (Auto) [place] % (Auto) [place] # Eos # Lymph # (Auto) [place] # (Auto) Eos # (Auto) Seg Neutrophils % Seg Neuts % (Manual) Baso # (Auto) Lymphocytes % (Manual) Monocytes % (Manual) Eosinophils % (Manual) Basophils % (Manual) Seg Neutrophils # Seg Neutrophils # Man Lymphocytes # (Manual) Monocytes # (Manual) Eosinophils # (Manual) Nucleated RBC % Basophils # (Manual) PT INR APTT Heparin Anti-Xa Level ABG pH POC ABG pO2 ABG pO2 ABG HCO3 ABG O2 Saturation ABG Base Excess POC ABG pCO2 ABG Hemoglobin ABG Oxyhemoglobin ABG Glucose Oxyhemoglobin Sodium Potassium Chloride Carbon Dioxide BUN Creatinine Glucose POC Glucose 147 H 140 H 159 H Lactic Acid Calcium Phosphorus Magnesium AST ALT Lactate Dehydrogenase CK-MB (CK-2) C-Reactive Protein NT-Pro-B Natriuret Pep Total Protein Albumin Arterial Blood Glucose Urine WBC (Auto) 01/15/20 01/15/20 01/16/20 12:52 17:43 00:32 WBC RBC Hgb Hct MCHC RDW MCV MCH Lymph % (Auto) [place] % (Auto) [place] # Eos # Lymph # (Auto) [place] # (Auto) Eos # (Auto) Seg Neutrophils % Seg Neuts % (Manual) Baso # (Auto) Lymphocytes % (Manual) Monocytes % (Manual) Eosinophils % (Manual) Basophils % (Manual) Seg Neutrophils # Seg Neutrophils # Man Lymphocytes # (Manual) Monocytes # (Manual) Eosinophils # (Manual) Nucleated RBC % Basophils # (Manual) PT INR APTT Heparin Anti-Xa Level ABG pH POC ABG pO2 ABG pO2 ABG HCO3 ABG O2 Saturation ABG Base Excess POC ABG pCO2 ABG Hemoglobin ABG Oxyhemoglobin ABG Glucose Oxyhemoglobin Sodium Potassium Chloride Carbon Dioxide BUN Creatinine Glucose POC Glucose 164 H 167 H 153 H Lactic Acid Calcium Phosphorus Magnesium AST ALT Lactate Dehydrogenase CK-MB (CK-2) C-Reactive Protein NT-Pro-B Natriuret Pep Total Protein Albumin Arterial Blood Glucose Urine WBC (Auto) 01/16/20 01/16/20 01/17/20 05:46 11:48 06:38 WBC RBC Hgb Hct MCHC RDW MCV MCH Lymph % (Auto) [place] % (Auto) [place] # Eos # Lymph # (Auto) [place] # (Auto) Eos # (Auto) Seg Neutrophils % Seg Neuts % (Manual) Baso # (Auto) Lymphocytes % (Manual) Monocytes % (Manual) Eosinophils % (Manual) Basophils % (Manual) Seg Neutrophils # Seg Neutrophils # Man Lymphocytes # (Manual) Monocytes # (Manual) Eosinophils # (Manual) Nucleated RBC % Basophils # (Manual) PT INR APTT Heparin Anti-Xa Level ABG pH POC ABG pO2 ABG pO2 ABG HCO3 ABG O2 Saturation ABG Base Excess POC ABG pCO2 ABG Hemoglobin ABG Oxyhemoglobin ABG Glucose Oxyhemoglobin Sodium Potassium Chloride Carbon Dioxide BUN Creatinine Glucose POC Glucose 163 H 155 H 116 H Lactic Acid Calcium Phosphorus Magnesium AST ALT Lactate Dehydrogenase CK-MB (CK-2) C-Reactive Protein NT-Pro-B Natriuret Pep Total Protein Albumin Arterial Blood Glucose Urine WBC (Auto) 01/17/20 01/17/20 01/18/20 11:36 17:43 00:12 WBC RBC Hgb Hct MCHC RDW MCV MCH Lymph % (Auto) [place] % (Auto) [place] # Eos # Lymph # (Auto) [place] # (Auto) Eos # (Auto) Seg Neutrophils % Seg Neuts % (Manual) Baso # (Auto) Lymphocytes % (Manual) Monocytes % (Manual) Eosinophils % (Manual) Basophils % (Manual) Seg Neutrophils # Seg Neutrophils # Man Lymphocytes # (Manual) Monocytes # (Manual) Eosinophils # (Manual) Nucleated RBC % Basophils # (Manual) PT INR APTT Heparin Anti-Xa Level ABG pH POC ABG pO2 ABG pO2 ABG HCO3 ABG O2 Saturation ABG Base Excess POC ABG pCO2 ABG Hemoglobin ABG Oxyhemoglobin ABG Glucose Oxyhemoglobin Sodium Potassium Chloride Carbon Dioxide BUN Creatinine Glucose POC Glucose 110 H 134 H 108 H Lactic Acid Calcium Phosphorus Magnesium AST ALT Lactate Dehydrogenase CK-MB (CK-2) C-Reactive Protein NT-Pro-B Natriuret Pep Total Protein Albumin Arterial Blood Glucose Urine WBC (Auto) 01/18/20 01/18/20 01/18/20 05:37 06:46 06:46 WBC RBC Hgb 10.1 L Hct 32.2 L MCHC 31 L RDW 18.1 H MCV 81 L MCH 25 L Lymph % (Auto) [place] % (Auto) [place] # Eos # Lymph # (Auto) [place] # (Auto) Eos # (Auto) Seg Neutrophils % 71.9 H Seg Neuts % (Manual) Baso # (Auto) Lymphocytes % (Manual) Monocytes % (Manual) Eosinophils % (Manual) Basophils % (Manual) Seg Neutrophils # Seg Neutrophils # Man Lymphocytes # (Manual) Monocytes # (Manual) Eosinophils # (Manual) Nucleated RBC % Basophils # (Manual) PT INR APTT Heparin Anti-Xa Level ABG pH POC ABG pO2 ABG pO2 ABG HCO3 ABG O2 Saturation ABG Base Excess POC ABG pCO2 ABG Hemoglobin ABG Oxyhemoglobin ABG Glucose Oxyhemoglobin Sodium Potassium Chloride Carbon Dioxide BUN Creatinine 0.7 L Glucose 155 H POC Glucose 168 H Lactic Acid Calcium Phosphorus Magnesium AST ALT Lactate Dehydrogenase CK-MB (CK-2) C-Reactive Protein NT-Pro-B Natriuret Pep Total Protein Albumin Arterial Blood Glucose Urine WBC (Auto) 01/18/20 01/18/20 01/18/20 12:05 17:14 23:28 WBC RBC Hgb Hct MCHC RDW MCV MCH Lymph % (Auto) [place] % (Auto) [place] # Eos # Lymph # (Auto) [place] # (Auto) Eos # (Auto) Seg Neutrophils % Seg Neuts % (Manual) Baso # (Auto) Lymphocytes % (Manual) Monocytes % (Manual) Eosinophils % (Manual) Basophils % (Manual) Seg Neutrophils # Seg Neutrophils # Man Lymphocytes # (Manual) Monocytes # (Manual) Eosinophils # (Manual) Nucleated RBC % Basophils # (Manual) PT INR APTT Heparin Anti-Xa Level ABG pH POC ABG pO2 ABG pO2 ABG HCO3 ABG O2 Saturation ABG Base Excess POC ABG pCO2 ABG Hemoglobin ABG Oxyhemoglobin ABG Glucose Oxyhemoglobin Sodium Potassium Chloride Carbon Dioxide BUN Creatinine Glucose POC Glucose 128 H 126 H 128 H Lactic Acid Calcium Phosphorus Magnesium AST ALT Lactate Dehydrogenase CK-MB (CK-2) C-Reactive Protein NT-Pro-B Natriuret Pep Total Protein Albumin Arterial Blood Glucose Urine WBC (Auto) 01/19/20 01/19/20 01/19/20 05:39 12:33 17:36 WBC RBC Hgb Hct MCHC RDW MCV MCH Lymph % (Auto) [place] % (Auto) [place] # Eos # Lymph # (Auto) [place] # (Auto) Eos # (Auto) Seg Neutrophils % Seg Neuts % (Manual) Baso # (Auto) Lymphocytes % (Manual) Monocytes % (Manual) Eosinophils % (Manual) Basophils % (Manual) Seg Neutrophils # Seg Neutrophils # Man Lymphocytes # (Manual) Monocytes # (Manual) Eosinophils # (Manual) Nucleated RBC % Basophils # (Manual) PT INR APTT Heparin Anti-Xa Level ABG pH POC ABG pO2 ABG pO2 ABG HCO3 ABG O2 Saturation ABG Base Excess POC ABG pCO2 ABG Hemoglobin ABG Oxyhemoglobin ABG Glucose Oxyhemoglobin Sodium Potassium Chloride Carbon Dioxide BUN Creatinine Glucose POC Glucose 164 H 171 H 152 H Lactic Acid Calcium Phosphorus Magnesium AST ALT Lactate Dehydrogenase CK-MB (CK-2) C-Reactive Protein NT-Pro-B Natriuret Pep Total Protein Albumin Arterial Blood Glucose Urine WBC (Auto) 01/20/20 01/20/20 01/20/20 00:12 05:20 05:35 WBC RBC Hgb 9.2 L Hct 29.4 L MCHC 31 L RDW 17.9 H MCV 81 L MCH 25 L Lymph % (Auto) [place] % (Auto) [place] # Eos # Lymph # (Auto) [place] # (Auto) Eos # (Auto) Seg Neutrophils % Seg Neuts % (Manual) Baso # (Auto) Lymphocytes % (Manual) Monocytes % (Manual) Eosinophils % (Manual) Basophils % (Manual) Seg Neutrophils # Seg Neutrophils # Man Lymphocytes # (Manual) Monocytes # (Manual) Eosinophils # (Manual) Nucleated RBC % Basophils # (Manual) PT INR APTT Heparin Anti-Xa Level ABG pH POC ABG pO2 ABG pO2 ABG HCO3 ABG O2 Saturation ABG Base Excess POC ABG pCO2 ABG Hemoglobin ABG Oxyhemoglobin ABG Glucose Oxyhemoglobin Sodium Potassium Chloride Carbon Dioxide BUN Creatinine Glucose POC Glucose 120 H 136 H Lactic Acid Calcium Phosphorus Magnesium AST ALT Lactate Dehydrogenase CK-MB (CK-2) C-Reactive Protein NT-Pro-B Natriuret Pep Total Protein Albumin Arterial Blood Glucose Urine WBC (Auto) 01/20/20 01/20/20 01/20/20 05:40 11:58 14:55 WBC RBC Hgb 9.0 L Hct 28.3 L MCHC RDW MCV MCH Lymph % (Auto) [place] % (Auto) [place] # Eos # Lymph # (Auto) [place] # (Auto) Eos # (Auto) Seg Neutrophils % Seg Neuts % (Manual) Baso # (Auto) Lymphocytes % (Manual) Monocytes % (Manual) Eosinophils % (Manual) Basophils % (Manual) Seg Neutrophils # Seg Neutrophils # Man Lymphocytes # (Manual) Monocytes # (Manual) Eosinophils # (Manual) Nucleated RBC % Basophils # (Manual) PT INR APTT Heparin Anti-Xa Level ABG pH POC ABG pO2 ABG pO2 ABG HCO3 ABG O2 Saturation ABG Base Excess POC ABG pCO2 ABG Hemoglobin ABG Oxyhemoglobin ABG Glucose Oxyhemoglobin Sodium Potassium Chloride Carbon Dioxide 32 H BUN 22 H Creatinine 0.7 L Glucose 128 H POC Glucose 152 H Lactic Acid Calcium Phosphorus Magnesium AST ALT Lactate Dehydrogenase CK-MB (CK-2) C-Reactive Protein NT-Pro-B Natriuret Pep Total Protein Albumin Arterial Blood Glucose Urine WBC (Auto) 01/20/20 01/20/20 01/20/20 14:55 18:14 21:35 WBC RBC Hgb Hct MCHC RDW MCV MCH Lymph % (Auto) [place] % (Auto) [place] # Eos # Lymph # (Auto) [place] # (Auto) Eos # (Auto) Seg Neutrophils % Seg Neuts % (Manual) Baso # (Auto) Lymphocytes % (Manual) Monocytes % (Manual) Eosinophils % (Manual) Basophils % (Manual) Seg Neutrophils # Seg Neutrophils # Man Lymphocytes # (Manual) Monocytes # (Manual) Eosinophils # (Manual) Nucleated RBC % Basophils # (Manual) PT 20.4 H INR 1.72 H APTT 40.6 H Heparin Anti-Xa Level > 2.00 H ABG pH POC ABG pO2 ABG pO2 ABG HCO3 ABG O2 Saturation ABG Base Excess POC ABG pCO2 ABG Hemoglobin ABG Oxyhemoglobin ABG Glucose Oxyhemoglobin Sodium Potassium Chloride Carbon Dioxide BUN Creatinine Glucose POC Glucose 150 H Lactic Acid Calcium Phosphorus Magnesium AST ALT Lactate Dehydrogenase CK-MB (CK-2) C-Reactive Protein NT-Pro-B Natriuret Pep Total Protein Albumin Arterial Blood Glucose Urine WBC (Auto) 01/21/20 01/21/20 01/21/20 00:30 05:47 05:59 WBC RBC Hgb Hct MCHC RDW MCV MCH Lymph % (Auto) [place] % (Auto) [place] # Eos # Lymph # (Auto) [place] # (Auto) Eos # (Auto) Seg Neutrophils % Seg Neuts % (Manual) Baso # (Auto) Lymphocytes % (Manual) Monocytes % (Manual) Eosinophils % (Manual) Basophils % (Manual) Seg Neutrophils # Seg Neutrophils # Man Lymphocytes # (Manual) Monocytes # (Manual) Eosinophils # (Manual) Nucleated RBC % Basophils # (Manual) PT INR APTT Heparin Anti-Xa Level 1.93 H ABG pH POC ABG pO2 ABG pO2 ABG HCO3 ABG O2 Saturation ABG Base Excess POC ABG pCO2 ABG Hemoglobin ABG Oxyhemoglobin ABG Glucose Oxyhemoglobin Sodium Potassium Chloride Carbon Dioxide BUN Creatinine Glucose POC Glucose 126 H 148 H Lactic Acid Calcium Phosphorus Magnesium AST ALT Lactate Dehydrogenase CK-MB (CK-2) C-Reactive Protein NT-Pro-B Natriuret Pep Total Protein Albumin Arterial Blood Glucose Urine WBC (Auto) 01/21/20 01/21/20 01/21/20 12:32 18:20 23:54 WBC RBC Hgb Hct MCHC RDW MCV MCH Lymph % (Auto) [place] % (Auto) [place] # Eos # Lymph # (Auto) [place] # (Auto) Eos # (Auto) Seg Neutrophils % Seg Neuts % (Manual) Baso # (Auto) Lymphocytes % (Manual) Monocytes % (Manual) Eosinophils % (Manual) Basophils % (Manual) Seg Neutrophils # Seg Neutrophils # Man Lymphocytes # (Manual) Monocytes # (Manual) Eosinophils # (Manual) Nucleated RBC % Basophils # (Manual) PT INR APTT Heparin Anti-Xa Level 1.28 H ABG pH POC ABG pO2 ABG pO2 ABG HCO3 ABG O2 Saturation ABG Base Excess POC ABG pCO2 ABG Hemoglobin ABG Oxyhemoglobin ABG Glucose Oxyhemoglobin Sodium Potassium Chloride Carbon Dioxide BUN Creatinine Glucose POC Glucose 112 H 146 H Lactic Acid Calcium Phosphorus Magnesium AST ALT Lactate Dehydrogenase CK-MB (CK-2) C-Reactive Protein NT-Pro-B Natriuret Pep Total Protein Albumin Arterial Blood Glucose Urine WBC (Auto) 01/22/20 01/22/20 01/22/20 04:45 04:45 05:48 WBC RBC Hgb 9.3 L Hct 29.0 L MCHC RDW MCV MCH Lymph % (Auto) [place] % (Auto) [place] # Eos # Lymph # (Auto) [place] # (Auto) Eos # (Auto) Seg Neutrophils % Seg Neuts % (Manual) Baso # (Auto) Lymphocytes % (Manual) Monocytes % (Manual) Eosinophils % (Manual) Basophils % (Manual) Seg Neutrophils # Seg Neutrophils # Man Lymphocytes # (Manual) Monocytes # (Manual) Eosinophils # (Manual) Nucleated RBC % Basophils # (Manual) PT INR APTT Heparin Anti-Xa Level 1.34 H ABG pH POC ABG pO2 ABG pO2 ABG HCO3 ABG O2 Saturation ABG Base Excess POC ABG pCO2 ABG Hemoglobin ABG Oxyhemoglobin ABG Glucose Oxyhemoglobin Sodium Potassium Chloride Carbon Dioxide BUN Creatinine Glucose POC Glucose 142 H Lactic Acid Calcium Phosphorus Magnesium AST ALT Lactate Dehydrogenase CK-MB (CK-2) C-Reactive Protein NT-Pro-B Natriuret Pep Total Protein Albumin Arterial Blood Glucose Urine WBC (Auto) 01/22/20 01/22/20 01/22/20 08:09 08:22 09:58 WBC RBC Hgb Hct MCHC RDW MCV MCH Lymph % (Auto) [place] % (Auto) [place] # Eos # Lymph # (Auto) [place] # (Auto) Eos # (Auto) Seg Neutrophils % Seg Neuts % (Manual) Baso # (Auto) Lymphocytes % (Manual) Monocytes % (Manual) Eosinophils % (Manual) Basophils % (Manual) Seg Neutrophils # Seg Neutrophils # Man Lymphocytes # (Manual) Monocytes # (Manual) Eosinophils # (Manual) Nucleated RBC % Basophils # (Manual) PT 16.9 H INR 1.34 H APTT Heparin Anti-Xa Level ABG pH POC ABG pO2 ABG pO2 ABG HCO3 ABG O2 Saturation ABG Base Excess POC ABG pCO2 ABG Hemoglobin ABG Oxyhemoglobin ABG Glucose Oxyhemoglobin Sodium Potassium Chloride 97.8 L Carbon Dioxide BUN 29 H Creatinine Glucose 128 H POC Glucose 131 H Lactic Acid Calcium Phosphorus Magnesium AST ALT Lactate Dehydrogenase CK-MB (CK-2) C-Reactive Protein NT-Pro-B Natriuret Pep Total Protein Albumin Arterial Blood Glucose Urine WBC (Auto) 01/22/20 01/22/20 01/22/20 12:44 16:13 18:18 WBC RBC Hgb Hct MCHC RDW MCV MCH Lymph % (Auto) [place] % (Auto) [place] # Eos # Lymph # (Auto) [place] # (Auto) Eos # (Auto) Seg Neutrophils % Seg Neuts % (Manual) Baso # (Auto) Lymphocytes % (Manual) Monocytes % (Manual) Eosinophils % (Manual) Basophils % (Manual) Seg Neutrophils # Seg Neutrophils # Man Lymphocytes # (Manual) Monocytes # (Manual) Eosinophils # (Manual) Nucleated RBC % Basophils # (Manual) PT INR APTT Heparin Anti-Xa Level ABG pH POC ABG pO2 ABG pO2 ABG HCO3 ABG O2 Saturation ABG Base Excess POC ABG pCO2 ABG Hemoglobin ABG Oxyhemoglobin ABG Glucose Oxyhemoglobin Sodium Potassium Chloride Carbon Dioxide BUN Creatinine Glucose POC Glucose 156 H 133 H 155 H Lactic Acid Calcium Phosphorus Magnesium AST ALT Lactate Dehydrogenase CK-MB (CK-2) C-Reactive Protein NT-Pro-B Natriuret Pep Total Protein Albumin Arterial Blood Glucose Urine WBC (Auto) 01/22/20 01/23/20 01/23/20 23:22 05:37 12:59 WBC RBC Hgb Hct MCHC RDW MCV MCH Lymph % (Auto) [place] % (Auto) [place] # Eos # Lymph # (Auto) [place] # (Auto) Eos # (Auto) Seg Neutrophils % Seg Neuts % (Manual) Baso # (Auto) Lymphocytes % (Manual) Monocytes % (Manual) Eosinophils % (Manual) Basophils % (Manual) Seg Neutrophils # Seg Neutrophils # Man Lymphocytes # (Manual) Monocytes # (Manual) Eosinophils # (Manual) Nucleated RBC % Basophils # (Manual) PT INR APTT Heparin Anti-Xa Level ABG pH POC ABG pO2 ABG pO2 ABG HCO3 ABG O2 Saturation ABG Base Excess POC ABG pCO2 ABG Hemoglobin ABG Oxyhemoglobin ABG Glucose Oxyhemoglobin Sodium Potassium Chloride Carbon Dioxide BUN Creatinine Glucose POC Glucose 148 H 163 H 175 H Lactic Acid Calcium Phosphorus Magnesium AST ALT Lactate Dehydrogenase CK-MB (CK-2) C-Reactive Protein NT-Pro-B Natriuret Pep Total Protein Albumin Arterial Blood Glucose Urine WBC (Auto) 01/23/20 01/23/20 01/24/20 17:28 23:56 04:30 WBC RBC 3.46 L Hgb 8.8 L Hct 27.8 L MCHC RDW 18.2 H MCV 81 L MCH 25 L Lymph % (Auto) [place] % (Auto) 7.8 H [place] # Eos # Lymph # (Auto) [place] # (Auto) Eos # (Auto) Seg Neutrophils % Seg Neuts % (Manual) Baso # (Auto) Lymphocytes % (Manual) Monocytes % (Manual) Eosinophils % (Manual) Basophils % (Manual) Seg Neutrophils # Seg Neutrophils # Man Lymphocytes # (Manual) Monocytes # (Manual) Eosinophils # (Manual) Nucleated RBC % Basophils # (Manual) PT INR APTT Heparin Anti-Xa Level ABG pH POC ABG pO2 ABG pO2 ABG HCO3 ABG O2 Saturation ABG Base Excess POC ABG pCO2 ABG Hemoglobin ABG Oxyhemoglobin ABG Glucose Oxyhemoglobin Sodium Potassium Chloride Carbon Dioxide BUN Creatinine Glucose POC Glucose 165 H 177 H Lactic Acid Calcium Phosphorus Magnesium AST ALT Lactate Dehydrogenase CK-MB (CK-2) C-Reactive Protein NT-Pro-B Natriuret Pep Total Protein Albumin Arterial Blood Glucose Urine WBC (Auto) 01/24/20 01/24/20 01/24/20 04:30 07:18 12:06 WBC RBC Hgb Hct MCHC RDW MCV MCH Lymph % (Auto) [place] % (Auto) [place] # Eos # Lymph # (Auto) [place] # (Auto) Eos # (Auto) Seg Neutrophils % Seg Neuts % (Manual) Baso # (Auto) Lymphocytes % (Manual) Monocytes % (Manual) Eosinophils % (Manual) Basophils % (Manual) Seg Neutrophils # Seg Neutrophils # Man Lymphocytes # (Manual) Monocytes # (Manual) Eosinophils # (Manual) Nucleated RBC % Basophils # (Manual) PT INR APTT Heparin Anti-Xa Level ABG pH POC ABG pO2 ABG pO2 ABG HCO3 ABG O2 Saturation ABG Base Excess POC ABG pCO2 ABG Hemoglobin ABG Oxyhemoglobin ABG Glucose Oxyhemoglobin Sodium Potassium Chloride 97.9 L Carbon Dioxide BUN 31 H Creatinine Glucose 146 H POC Glucose 151 H 133 H Lactic Acid Calcium Phosphorus Magnesium AST ALT Lactate Dehydrogenase CK-MB (CK-2) C-Reactive Protein NT-Pro-B Natriuret Pep Total Protein Albumin Arterial Blood Glucose Urine WBC (Auto) 01/24/20 01/25/20 01/25/20 17:36 00:08 04:25 WBC RBC 3.50 L Hgb 8.7 L Hct 27.9 L MCHC 31 L RDW 18.2 H MCV 80 L MCH 25 L Lymph % (Auto) [place] % (Auto) 8.5 H [place] # Eos # Lymph # (Auto) [place] # (Auto) Eos # (Auto) Seg Neutrophils % Seg Neuts % (Manual) Baso # (Auto) Lymphocytes % (Manual) Monocytes % (Manual) Eosinophils % (Manual) Basophils % (Manual) Seg Neutrophils # Seg Neutrophils # Man Lymphocytes # (Manual) Monocytes # (Manual) Eosinophils # (Manual) Nucleated RBC % Basophils # (Manual) PT INR APTT Heparin Anti-Xa Level ABG pH POC ABG pO2 ABG pO2 ABG HCO3 ABG O2 Saturation ABG Base Excess POC ABG pCO2 ABG Hemoglobin ABG Oxyhemoglobin ABG Glucose Oxyhemoglobin Sodium Potassium Chloride Carbon Dioxide BUN Creatinine Glucose POC Glucose 133 H 129 H Lactic Acid Calcium Phosphorus Magnesium AST ALT Lactate Dehydrogenase CK-MB (CK-2) C-Reactive Protein NT-Pro-B Natriuret Pep Total Protein Albumin Arterial Blood Glucose Urine WBC (Auto) 01/25/20 01/25/20 01/25/20 04:25 05:38 11:52 WBC RBC Hgb Hct MCHC RDW MCV MCH Lymph % (Auto) [place] % (Auto) [place] # Eos # Lymph # (Auto) [place] # (Auto) Eos # (Auto) Seg Neutrophils % Seg Neuts % (Manual) Baso # (Auto) Lymphocytes % (Manual) Monocytes % (Manual) Eosinophils % (Manual) Basophils % (Manual) Seg Neutrophils # Seg Neutrophils # Man Lymphocytes # (Manual) Monocytes # (Manual) Eosinophils # (Manual) Nucleated RBC % Basophils # (Manual) PT INR APTT Heparin Anti-Xa Level ABG pH POC ABG pO2 ABG pO2 ABG HCO3 ABG O2 Saturation ABG Base Excess POC ABG pCO2 ABG Hemoglobin ABG Oxyhemoglobin ABG Glucose Oxyhemoglobin Sodium Potassium Chloride Carbon Dioxide BUN 30 H Creatinine Glucose 134 H POC Glucose 129 H 134 H Lactic Acid Calcium Phosphorus Magnesium AST ALT Lactate Dehydrogenase CK-MB (CK-2) C-Reactive Protein NT-Pro-B Natriuret Pep Total Protein Albumin Arterial Blood Glucose Urine WBC (Auto) 01/25/20 01/25/20 01/26/20 17:13 21:02 00:59 WBC RBC Hgb Hct MCHC RDW MCV MCH Lymph % (Auto) [place] % (Auto) [place] # Eos # Lymph # (Auto) [place] # (Auto) Eos # (Auto) Seg Neutrophils % Seg Neuts % (Manual) Baso # (Auto) Lymphocytes % (Manual) Monocytes % (Manual) Eosinophils % (Manual) Basophils % (Manual) Seg Neutrophils # Seg Neutrophils # Man Lymphocytes # (Manual) Monocytes # (Manual) Eosinophils # (Manual) Nucleated RBC % Basophils # (Manual) PT INR APTT Heparin Anti-Xa Level ABG pH POC ABG pO2 ABG pO2 57.5 L ABG HCO3 31.7 H ABG O2 Saturation 90.3 L ABG Base Excess 6.6 H POC ABG pCO2 ABG Hemoglobin 13.0 L ABG Oxyhemoglobin ABG Glucose Oxyhemoglobin 87.5 L Sodium Potassium Chloride Carbon Dioxide BUN Creatinine Glucose POC Glucose 124 H 196 H Lactic Acid Calcium Phosphorus Magnesium AST ALT Lactate Dehydrogenase CK-MB (CK-2) C-Reactive Protein NT-Pro-B Natriuret Pep Total Protein Albumin Arterial Blood Glucose Urine WBC (Auto) 01/26/20 01/26/20 01/26/20 03:20 05:46 12:46 WBC RBC Hgb 9.2 L Hct 29.4 L MCHC RDW MCV MCH Lymph % (Auto) [place] % (Auto) [place] # Eos # Lymph # (Auto) [place] # (Auto) Eos # (Auto) Seg Neutrophils % Seg Neuts % (Manual) Baso # (Auto) Lymphocytes % (Manual) Monocytes % (Manual) Eosinophils % (Manual) Basophils % (Manual) Seg Neutrophils # Seg Neutrophils # Man Lymphocytes # (Manual) Monocytes # (Manual) Eosinophils # (Manual) Nucleated RBC % Basophils # (Manual) PT INR APTT Heparin Anti-Xa Level ABG pH POC ABG pO2 ABG pO2 ABG HCO3 ABG O2 Saturation ABG Base Excess POC ABG pCO2 ABG Hemoglobin ABG Oxyhemoglobin ABG Glucose Oxyhemoglobin Sodium Potassium Chloride Carbon Dioxide BUN Creatinine Glucose POC Glucose 141 H 122 H Lactic Acid Calcium Phosphorus Magnesium AST ALT Lactate Dehydrogenase CK-MB (CK-2) C-Reactive Protein NT-Pro-B Natriuret Pep Total Protein Albumin Arterial Blood Glucose Urine WBC (Auto) 01/26/20 01/26/20 01/27/20 18:03 23:55 04:47 WBC RBC Hgb Hct MCHC RDW MCV MCH Lymph % (Auto) [place] % (Auto) [place] # Eos # Lymph # (Auto) [place] # (Auto) Eos # (Auto) Seg Neutrophils % Seg Neuts % (Manual) Baso # (Auto) Lymphocytes % (Manual) Monocytes % (Manual) Eosinophils % (Manual) Basophils % (Manual) Seg Neutrophils # Seg Neutrophils # Man Lymphocytes # (Manual) Monocytes # (Manual) Eosinophils # (Manual) Nucleated RBC % Basophils # (Manual) PT INR APTT Heparin Anti-Xa Level ABG pH POC ABG pO2 ABG pO2 ABG HCO3 ABG O2 Saturation ABG Base Excess POC ABG pCO2 ABG Hemoglobin ABG Oxyhemoglobin ABG Glucose Oxyhemoglobin Sodium Potassium Chloride Carbon Dioxide BUN 30 H Creatinine 0.7 L Glucose 135 H POC Glucose 142 H 159 H Lactic Acid Calcium Phosphorus Magnesium AST ALT Lactate Dehydrogenase CK-MB (CK-2) C-Reactive Protein NT-Pro-B Natriuret Pep Total Protein Albumin Arterial Blood Glucose Urine WBC (Auto) 01/27/20 01/27/20 01/27/20 05:43 12:06 17:16 WBC RBC Hgb Hct MCHC RDW MCV MCH Lymph % (Auto) [place] % (Auto) [place] # Eos # Lymph # (Auto) [place] # (Auto) Eos # (Auto) Seg Neutrophils % Seg Neuts % (Manual) Baso # (Auto) Lymphocytes % (Manual) Monocytes % (Manual) Eosinophils % (Manual) Basophils % (Manual) Seg Neutrophils # Seg Neutrophils # Man Lymphocytes # (Manual) Monocytes # (Manual) Eosinophils # (Manual) Nucleated RBC % Basophils # (Manual) PT INR APTT Heparin Anti-Xa Level ABG pH POC ABG pO2 ABG pO2 ABG HCO3 ABG O2 Saturation ABG Base Excess POC ABG pCO2 ABG Hemoglobin ABG Oxyhemoglobin ABG Glucose Oxyhemoglobin Sodium Potassium Chloride Carbon Dioxide BUN Creatinine Glucose POC Glucose 143 H 142 H 128 H Lactic Acid Calcium Phosphorus Magnesium AST ALT Lactate Dehydrogenase CK-MB (CK-2) C-Reactive Protein NT-Pro-B Natriuret Pep Total Protein Albumin Arterial Blood Glucose Urine WBC (Auto) 01/27/20 01/28/20 01/28/20 23:55 04:37 05:55 WBC RBC Hgb 9.4 L Hct 29.9 L MCHC RDW MCV MCH Lymph % (Auto) [place] % (Auto) [place] # Eos # Lymph # (Auto) [place] # (Auto) Eos # (Auto) Seg Neutrophils % Seg Neuts % (Manual) Baso # (Auto) Lymphocytes % (Manual) Monocytes % (Manual) Eosinophils % (Manual) Basophils % (Manual) Seg Neutrophils # Seg Neutrophils # Man Lymphocytes # (Manual) Monocytes # (Manual) Eosinophils # (Manual) Nucleated RBC % Basophils # (Manual) PT INR APTT Heparin Anti-Xa Level ABG pH POC ABG pO2 ABG pO2 ABG HCO3 ABG O2 Saturation ABG Base Excess POC ABG pCO2 ABG Hemoglobin ABG Oxyhemoglobin ABG Glucose Oxyhemoglobin Sodium Potassium Chloride Carbon Dioxide BUN Creatinine Glucose POC Glucose 166 H 169 H Lactic Acid Calcium Phosphorus Magnesium AST ALT Lactate Dehydrogenase CK-MB (CK-2) C-Reactive Protein NT-Pro-B Natriuret Pep Total Protein Albumin Arterial Blood Glucose Urine WBC (Auto) 01/28/20 11:58 WBC RBC Hgb Hct MCHC RDW MCV MCH Lymph % (Auto) [place] % (Auto) [place] # Eos # Lymph # (Auto) [place] # (Auto) Eos # (Auto) Seg Neutrophils % Seg Neuts % (Manual) Baso # (Auto) Lymphocytes % (Manual) Monocytes % (Manual) Eosinophils % (Manual) Basophils % (Manual) Seg Neutrophils # Seg Neutrophils # Man Lymphocytes # (Manual) Monocytes # (Manual) Eosinophils # (Manual) Nucleated RBC % Basophils # (Manual) PT INR APTT Heparin Anti-Xa Level ABG pH POC ABG pO2 ABG pO2 ABG HCO3 ABG O2 Saturation ABG Base Excess POC ABG pCO2 ABG Hemoglobin ABG Oxyhemoglobin ABG Glucose Oxyhemoglobin Sodium Potassium Chloride Carbon Dioxide BUN Creatinine Glucose POC Glucose 130 H Lactic Acid Calcium Phosphorus Magnesium AST ALT Lactate Dehydrogenase CK-MB (CK-2) C-Reactive Protein NT-Pro-B Natriuret Pep Total Protein Albumin Arterial Blood Glucose Urine WBC (Auto) Chest x-ray: pending Allied health notes reviewed: nursing
--- NOTE | 2020-01-28 15:38 | XRay Report ---
CHEST 1 VIEW INDICATION: pulmonary edema COMPARISON: 01/17/2020 FINDINGS: SUPPORT DEVICES: Tracheostomy good position. HEART / MEDIASTINUM: No significant abnormality. LUNGS / PLEURA: Diffuse interstitial and airspace pulmonary process with bilateral pleural effusions No pneumothorax. ADDITIONAL FINDINGS: IMPRESSION: 1. No interval change as compared to previous exam Signer Name: Jose Leblanc MD Signed: 01/28/2020 3:34 PM Workstation Name: [id number]
[2020-01-28] MEDS: FUROSEMIDE 40 MG/4 ML INJ IV SCH (18:15)
[2020-01-28] MEDS: TAMSULOSIN 0.4 MG CAP PO SCH (21:50)
[2020-01-28] MEDS: POLYETHYLENE GLYCOL 3350 17 GM POWDER PO SCH (23:14)
[2020-01-28] MEDS: METOPROLOL TARTRATE 5 MG/5 ML INJ IV PRN (23:28)
[2020-01-29] MEDS: METOPROLOL TARTRATE 25 MG TAB PO SCH ×4 (01:00→19:00)
[2020-01-29 06:03] LABS: Blood Urea Nitrogen 20 mg/dL (9-20); Calcium 9.2 mg/dL (8.4-10.2); Hemolysis Index 2
[2020-01-29 06:04] LABS: BUN/Creatinine Ratio 33
[2020-01-29] MEDS: NITROGLYCERIN 0.4 MG PATCH 24HR TD SCH (06:21)
[2020-01-29] MEDS: FUROSEMIDE 40 MG/4 ML INJ IV SCH ×2 (06:22→17:19)
--- NOTE | 2020-01-29 09:01 | Progress Note ---
Assessment and Plan Assessment and plan: --Ischemic cardiomyopathy Cardiology is following, status post cardiac catheterization on 01/22/2020; Cor onary artery disease status post PCI and stent to the LAD Continue current cardiac medications --Acute on chronic hypoxemic respiratory failure; Patient has tracheostomy on vent Continue nebulizers, , trach care Wean off ventilator as tolerated Pulmonary critical following --Acute exacerbation of COPD; Patient is currently on ventilatory support Continue nebulizers --Left lower lobe PE; Continue Eliquis, ventilatory support --Acute right lower extremity DVT; Patient is on Eliquis --Bilateral multifocal pneumonia/community-acquired Completed antibiotics, improved --Severe sepsis/bilateral pneumonia: Completed antibiotics COVID-19 test; 11/24/2019; negative 11/26/2019; negative 12/29/2019: Negative --Paroxysmal atrial fibrillation; Now rate controlled, Stable on amiodarone and Eliquis --Acute on chronic combined systolic and diastolic congestive heart failure Ischemic cardiomyopathy left ventricular ejection fraction 40 to 45% --H/o CAD [[facility] 12/2018 in-stent restenosis] Patient is stable on current cardiac medications Patient is a 64-year-old male with known history of hypertension, COPD, history of coronary artery disease, CHF with ejection fraction of 20 to 25% in August 2018 presenting to the emergency room via EMS complaining of shortness of breath. Patient was found to be hypoxic and in respiratory distress. Patient was placed on CPAP in route to the hospital. Patient remained hypoxic on CPAP BiPAP ,subsequently was intubated. Work-up in the emergency room including chest x-ray reveals bilateral pneumonia. He had an elevated white count of 14 and also had an elevated BNP. sputum cultures positive for Pseudomonas, ID treated with cefepime and Vanco. His hospital course became complicated with acute PE, DVT, paroxysmal atrial fib - placed on chronic anticoagulation. Patient was difficult to wean off, status post trach and PEG, remains on mechanical ventilation with trach tube. He then developed partial small bowel obstruction valuated by general surgeon symptom improved with medical Mx, patient was briefly weaned off ventilatory support however, was in respiratory failure requiring full ventilatory support. Cardiac catheterization on 01/22/2020. No new issues overnight. --Hypertensive emergency; present on admission Reasonable blood pressures, continue current antihypertensives As needed medications --History of alcohol abuse/alcohol withdrawal; Was on CIWA protocol, now stable --Oropharyngeal dysphagia; status post PEG placement Continue PEG feeds per protocol --History of partial small bowel obstruction; resolved Surgery evaluated. --Obesity; BMI 34.7 Patient needs weight reduction when medically stable --Severe protein calorie malnutrition/hypoalbuminemia Nutrition supplements, dietitian following, PEG feeds --DVT prophylaxis;Eliquis --Full CODE STATUS 01/05; Pt stable. NGT output 650cc over 24 hours, bilious. No f/c, WBC within normal limits. cont NG suction and cont to hold TF 01/06: Abs series - mild improvement in small bowel distension in mid abdomen, normal gas/stool pattern in colon. NGT in duodenum. Continue to hold tube feeding, maintain NG tube with low intermittent suction. Patient's was updated by phone. Continue to provide supportive care and monitor clinically. 01/07: +BMs today and NGT/PEG output appears more gastric today. Plan to clamp NGT, if tolerates start TF from tomorrow. cont supportive care. 01/08; Gastric output decreased over last 24 hours. NGT has been clamped x 24 hours. plan to dc NGT and to start TTF via PEG - vital HF @10cc/hr 01/09: clinically stable, tolerating TF. monitor BMP, wean off from vent as tolerated clinically stable, on TF. wean off vent as tolerated 01/11: wean off from vent, cont to monitor, on TF 01/12: wean off from vent, cont to monitor, on TF. need placement - unfunded 01/13; remains on ventilatory support, unable to wean, DC planning possible LT AC, unfunded 01/14; patient of ventilatory support, T-piece tracheostomy on oxygen, LTAC placement per case management 01/16; tracheostomy, patient on full ventilatory support, wean off vent support as tolerated, pending LTAC placement, social financial issues 01/17; awaiting LTAC placement, insurance and financial issues 01/18; patient tracheostomy remains on ventilatory support 01/19; wean off ventilator as tolerated 01/20; remains on ventilatory support, patient complains of intermittent chest pain, cardiology recommend left heart catheterization tomorrow 01/22/2020. Patient for left heart catheterization per cardiology. Patient remains on AC mode ventilation rate 12, tidal volume 450, FiO2 30% and PEEP of 6. Continue tracheostomy care, airway management and secretion control. 01/23/2020. Cardiac catheterization completed yesterday revealed widely patent previous LAD stent with mild nonobstructive atherosclerosis of the right mid coronary artery and rest of the coronary system was without significant atherosclerosis. The left ventricle ejection fraction was mildly impaired at 40 to 45%. There was some hypokinesis of the basal inferior wall suggestive of previous or recent infarct. Continue GDMT for coronary artery disease including beta blockers, topical nitrates, statin and Plavix. Continue Eliquis for paroxysmal atrial fibrillation and PE. Continue diuresis with Lasix and follow electrolytes closely. Continue Robinul and scopolamine for secretion control and daily SBT per pulmonary. Also, continue bronchodilators and routine trach care/airway management. T-piece trials per pulmonary as tolerated. 01/24/2020. Recent cardiac catheterization has documented widely patent left anterior descending artery stent with minimal nonobstructive diffuse coronary artery disease in the rest of the coronary arteries. Evidence of ischemic cardiomyopathy with inferior wall hypokinesis. Continue with guideline directed medical therapy. Continue Robinul and scopolamine for secretion control and daily SBT per pulmonary. Continue bronchodilators and routine trach care/airway management. T-piece trials per pulmonary as tolerated. 01/25/2020. Continue with guideline directed medical therapy for systolic heart failure. Cardiac catheterization revealed evidence of ischemic cardiomyopathy with inferior wall hypokinesis (EF 40-45%). Patient currently on T-piece with oxygen 10 L/min FiO2 40%. Continue Robinul and scopolamine for secretion control. Continue bronchodilators and routine trach care/airway management. 01/26/2020;Continue with guideline directed medical therapy for systolic heart failure. Cardiac catheterization revealed evidence of ischemic cardiomyopathy with inferior wall hypokinesis (EF 40-45%). Patient currently on T-piece with oxygen 10 L/min FiO2 40%. Continue Robinul and scopolamine for secretion control. Continue bronchodilators and routine trach care/airway management. 01/27/2020Continue with guideline directed medical therapy for systolic heart failure. Cardiac catheterization revealed evidence of ischemic cardiomyopathy with inferior wall hypokinesis (EF 40-45%). Patient currently on T-piece with oxygen 10 L/min FiO2 40%. Continue Robinul and scopolamine for secretion control. Continue bronchodilators and routine trach care/airway management. 01/28/2020Continue with guideline directed medical therapy for systolic heart failure. Cardiac catheterization revealed evidence of ischemic cardiomyopathy with inferior wall hypokinesis (EF 40-45%). Patient currently on T-piece with oxygen 10 L/min FiO2 40%. Continue Robinul and scopolamine for secretion control. Continue bronchodilators and routine trach care/airway management. 01/29/2020 Continue with guideline directed medical therapy for systolic heart failure. Cardiac catheterization revealed evidence of ischemic cardiomyopathy with inferior wall hypokinesis (EF 40-45%). Patient currently on T-piece with oxygen 10 L/min FiO2 40%. Continue Robinul and scopolamine for secretion control. Continue bronchodilators and routine trach care/airway management. The high probability of a clinically significant, sudden or life threatening deterioration of the [Respiratory, cardiovascular & neurological] system(s) required my full and direct attention, intervention and personal management. The aggregate critical care time was [32] minutes without overlap. Time includes spent on [x] Data Review and interpretation [x] Patient assessment and monitoring of vital signs [x] Documentation [x] Medication orders and management History Interval history: Patient was seen and evaluated this morning Patient is intubated and he open his eyes Patient is on trach Hospitalist Physical - Physical exam Narrative exam: Patient is on trach Patient is obese Vital signs as documented. Head exam is unremarkable. No scleral icterus . Neck is without jugular venous distension, thyromegaly, or carotid bruits. Lungs intubated and on mechanical ventilator Cardiac exam reveals regular rate and Rhythm. Abdominal exam reveals normal bowel sounds, nontender, no organomegaly. Extremities are nonedematous and both femoral and pedal pulses are normal. 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 - Constitutional Vitals: Temp Pulse Resp BP Pulse Ox 97.3 F L 128 H 25 H 105/78 98 01/29/20 04:00 01/29/20 07:25 01/29/20 07:25 01/29/20 07:25 01/29/20 07:25 General appearance: Present: well-nourished, obese, other (Tracheostomy on vent) HEART Score - HEART Score Troponin: Troponin T < 0.010 ng/mL (0.00-0.029) 01/19/20 01:35 Results - Labs CBC & Chem 7: 01/28/20 04:37 01/29/20 04:55 Labs: Laboratory Last Values WBC 8.9 K/mm3 (4.5-11.0) 01/25/20 04:25 RBC 3.50 M/mm3 (3.65-5.03) L 01/25/20 04:25 Hgb 9.4 gm/dl (11.8-15.2) L 01/28/20 04:37 Hct 29.9 % (35.5-45.6) L 01/28/20 04:37 MCV 80 fl (84-94) L 01/25/20 04:25 MCH 25 pg (28-32) L 01/25/20 04:25 MCHC 31 % (32-34) L 01/25/20 04:25 RDW 18.2 % (13.2-15.2) H 01/25/20 04:25 Plt Count 228 K/mm3 (140-440) 01/28/20 04:37 Lymph % (Auto) 24.4 % (13.4-35.0) 01/25/20 04:25 Fajardo % (Auto) 8.5 % (0.0-7.3) H 01/25/20 04:25 Eos % (Auto) 3.6 % (0.0-4.3) 01/25/20 04:25 Baso % (Auto) 0.7 % (0.0-1.8) 01/25/20 04:25 Lymph # (Auto) 2.2 K/mm3 (1.2-5.4) 01/25/20 04:25 Fajardo # (Auto) 0.8 K/mm3 (0.0-0.8) 01/25/20 04:25 Eos # (Auto) 0.3 K/mm3 (0.0-0.4) 01/25/20 04:25 Baso # (Auto) 0.1 K/mm3 (0.0-0.1) 01/25/20 04:25 Add Manual Diff Complete 12/19/19 11:32 Total Counted 100 12/19/19 11:32 Seg Neutrophils % 62.8 % (40.0-70.0) 01/25/20 04:25 Seg Neuts % (Manual) 82.0 % (40.0-70.0) H 12/19/19 11:32 Band Neutrophils % 0 % 12/19/19 11:32 Lymphocytes % (Manual) 10.0 % (13.4-35.0) L 12/19/19 11:32 Reactive Lymphs % (Man) 0 % 12/19/19 11:32 Monocytes % (Manual) 6.0 % (0.0-7.3) 12/19/19 11:32 Eosinophils % (Manual) 2.0 % (0.0-4.3) 12/19/19 11:32 Basophils % (Manual) 0 % (0.0-1.8) 12/19/19 11:32 Metamyelocytes % 0 % 12/19/19 11:32 Myelocytes % 0 % 12/19/19 11:32 Promyelocytes % 0 % 12/19/19 11:32 Blast Cells % 0 % 12/19/19 11:32 Nucleated RBC % 1.0 % (0.0-0.9) H 12/19/19 11:32 Seg Neutrophils # 5.6 K/mm3 (1.8-7.7) 01/25/20 04:25 Seg Neutrophils # Man 12.0 K/mm3 (1.8-7.7) H 12/19/19 11:32 Band Neutrophils # 0.0 K/mm3 12/19/19 11:32 Lymphocytes # (Manual) 1.5 K/mm3 (1.2-5.4) 12/19/19 11:32 Abs React Lymphs (Man) 0.0 K/mm3 12/19/19 11:32 Monocytes # (Manual) 0.9 K/mm3 (0.0-0.8) H 12/19/19 11:32 Eosinophils # (Manual) 0.3 K/mm3 (0.0-0.4) 12/19/19 11:32 Basophils # (Manual) 0.0 K/mm3 (0.0-0.1) 12/19/19 11:32 Metamyelocytes # 0.0 K/mm3 12/19/19 11:32 Myelocytes # 0.0 K/mm3 12/19/19 11:32 Promyelocytes # 0.0 K/mm3 12/19/19 11:32 Blast Cells # 0.0 K/mm3 12/19/19 11:32 WBC Morphology Not Reportable 12/19/19 11:32 Hypersegmented Neuts Not Reportable 12/19/19 11:32 Hyposegmented Neuts Not Reportable 12/19/19 11:32 Hypogranular Neuts Not Reportable 12/19/19 11:32 Smudge Cells Not Reportable 12/19/19 11:32 Toxic Granulation Not Reportable 12/19/19 11:32 Toxic Vacuolation Not Reportable 12/19/19 11:32 Dohle Bodies Not Reportable 12/19/19 11:32 Pelger-Huet Anomaly Not Reportable 12/19/19 11:32 Hector Rods Not Reportable 12/19/19 11:32 Platelet Estimate Consistent w auto 12/19/19 11:32 Clumped Platelets Not Reportable 12/19/19 11:32 Plt Clumps, EDTA Not Reportable 12/19/19 11:32 Large Platelets Not Reportable 12/19/19 11:32 Giant Platelets Not Reportable 12/19/19 11:32 Platelet Satelliting Not Reportable 12/19/19 11:32 Plt Morphology Comment Not Reportable 12/19/19 11:32 RBC Morphology Not Reportable 12/19/19 11:32 Dimorphic RBCs Not Reportable 12/19/19 11:32 Polychromasia Not Reportable 12/19/19 11:32 Hypochromasia Few 12/19/19 11:32 Poikilocytosis Not Reportable 12/19/19 11:32 Anisocytosis 1+ 12/19/19 11:32 Microcytosis Few 12/19/19 11:32 Macrocytosis Few 12/19/19 11:32 Spherocytes Not Reportable 12/19/19 11:32 Pappenheimer Bodies Not Reportable 12/19/19 11:32 Sickle Cells Not Reportable 12/19/19 11:32 Target Cells Not Reportable 12/19/19 11:32 Tear Drop Cells Not Reportable 12/19/19 11:32 Ovalocytes Not Reportable 12/19/19 11:32 Helmet Cells Not Reportable 12/19/19 11:32 Gottlieb-[place] Bodies Not Reportable 12/19/19 11:32 Clarissa Rings Not Reportable 12/19/19 11:32 Oc Cells Not Reportable 12/19/19 11:32 Bite Cells Not Reportable 12/19/19 11:32 Crenated Cell Not Reportable 12/19/19 11:32 Elliptocytes Not Reportable 12/19/19 11:32 Acanthocytes (Spur) Not Reportable 12/19/19 11:32 Rouleaux Not Reportable 12/19/19 11:32 Hemoglobin C Crystals Not Reportable 12/19/19 11:32 Schistocytes Not Reportable 12/19/19 11:32 Malaria parasites Not Reportable 12/19/19 11:32 Clifford Bodies Not Reportable 12/19/19 11:32 Hem Pathologist Commnt No 12/19/19 11:32 PT 16.9 Sec. (12.2-14.9) H 01/22/20 09:58 INR 1.34 (0.87-1.13) H 01/22/20 09:58 APTT 31.5 Sec. (24.2-36.6) 01/22/20 09:58 Heparin Anti-Xa Level 1.34 U.I./ml (0.3-0.7) H 01/22/20 04:45 ABG pH 7.447 pH Units (7.350-7.450) 01/25/20 21:02 POC ABG pCO2 45.6 mmHg (32.0-48.0) 01/12/20 13:58 ABG pCO2 47.0 mm Hg 01/25/20 21:02 POC ABG pO2 76.6 mmHg (83-108) L 01/12/20 13:58 ABG pO2 57.5 mm Hg (80.0-90.0) L 01/25/20 21:02 POC ABG HCO3 31.2 01/12/20 13:58 ABG HCO3 31.7 mmol/L (20.0-26.0) H 01/25/20 21:02 ABG O2 Saturation 90.3 % (95.0-99.0) L 01/25/20 21:02 ABG O2 Content 16.0 (0.0-44) 01/25/20 21:02 POC ABG Base Excess 6.5 01/12/20 13:58 ABG Base Excess 6.6 mmol/L (-2.0-3.0) H 01/25/20 21:02 ABG Hemoglobin 13.0 gm/dl (14.0-18.0) L 01/25/20 21:02 ABG Oxyhemoglobin 84 (94-98) L 12/22/19 03:22 ABG Carboxyhemoglobin 2.5 % (0.0-5.0) 01/25/20 21:02 ABG Methemoglobin 0.6 % (0.0-1.5) 01/25/20 21:02 ABG Sodium 136.8 mmol/L (136.0-145.0) 01/12/20 13:58 ABG Potassium 3.7 mmol/L (3.40-4.50) 01/12/20 13:58 ABG Chloride 103.0 mmol/L (98-107) 01/12/20 13:58 ABG Glucose 99 mg/dL (65-95) H 01/12/20 13:58 Oxyhemoglobin 87.5 % (95.0-99.0) L 01/25/20 21:02 Carboxyhemoglobin 0.7 (0.5-1.5) 12/22/19 03:22 FiO2 40 % 01/25/20 21:02 Sodium 143 mmol/L (137-145) 01/29/20 04:55 Potassium 3.9 mmol/L (3.6-5.0) 01/29/20 04:55 Chloride 100.7 mmol/L (98-107) 01/29/20 04:55 Carbon Dioxide 34 mmol/L (22-30) H 01/29/20 04:55 Anion Gap 12 mmol/L 01/29/20 04:55 BUN 20 mg/dL (9-20) 01/29/20 04:55 Creatinine 0.6 mg/dL (0.8-1.3) L 01/29/20 04:55 Estimated GFR > 60 ml/min 01/29/20 04:55 BUN/Creatinine Ratio 33 % 01/29/20 04:55 Glucose 152 mg/dL (75-100) H 01/29/20 04:55 POC Glucose 157 mg/dL (70-105) H 01/29/20 06:00 Lactic Acid 2.50 mmol/L (0.7-2.0) H* 11/24/19 10:37 Magnesium 2.60 mg/dL (1.7-2.3) H 12/07/19 12:41 Calcium 9.2 mg/dL (8.4-10.2) 01/29/20 04:55 Ferritin 84.4 ng/mL (30.0-300.0) 11/24/19 04:53 Direct Bilirubin < 0.2 mg/dL (0-0.2) 12/08/19 03:55 Indirect Bilirubin 0.2 mg/dL 12/08/19 03:55 Phosphorus 3.40 mg/dL (2.5-4.5) 01/12/20 12:01 Total Bilirubin 0.50 mg/dL (0.1-1.2) 01/12/20 00:23 Total Creatine Kinase 141 units/L (55-170) 11/24/19 02:53 CK-MB (CK-2) 4.3 ng/mL (0.0-4.0) H 11/24/19 02:53 AST 16 units/L (5-40) 01/12/20 00:23 ALT 22 units/L (7-56) 01/12/20 00:23 CK-MB (CK-2) Rel Index 3.0 (0-4) 11/24/19 02:53 Alkaline Phosphatase 59 units/L (35-129) 01/12/20 00:23 C-Reactive Protein 8.50 mg/dL (0.00-1.30) H 12/01/19 12:16 Lactate Dehydrogenase 228 units/L (91-180) H 12/19/19 04:45 Troponin T < 0.010 ng/mL (0.00-0.029) 01/19/20 01:35 NT-Pro-B Natriuret Pep 3866 pg/mL (0-900) H 01/01/20 10:40 Total Protein 6.3 g/dL (6.3-8.2) 01/12/20 00:23 Albumin 2.6 g/dL (3.9-5) L 01/12/20 00:23 Albumin/Globulin Ratio 0.7 % 01/12/20 00:23 Procalcitonin 0.76 ng/mL (<0.15) 01/01/20 10:40 Arterial Blood Glucose 99 mg/dL (65-95) H 01/12/20 13:58 Arterial Blood Ionized Calcium 4.8 mg/dL (4.6-5.3) 01/12/20 13:58 Urine Color Cecy (Yellow) 12/31/19 18:04 Urine Turbidity Clear (Clear) 12/31/19 18:04 Urine pH 5.0 (5.0-7.0) 12/31/19 18:04 Ur Specific [place] 1.023 (1.003-1.030) 12/31/19 18:04 Urine Protein <15 mg/dl mg/dL (Negative) 12/31/19 18:04 Urine Glucose (UA) Neg mg/dL (Negative) 12/31/19 18:04 Urine Ketones Neg mg/dL (Negative) 12/31/19 18:04 Urine Blood Neg (Negative) 12/31/19 18:04 Urine Bacteria (Auto) 1+ /HPF (Negative) 12/03/19 06:03 Urine Nitrite Neg (Negative) 12/31/19 18:04 Urine Bilirubin Neg (Negative) 12/31/19 18:04 Urine Urobilinogen 4.0 mg/dL (<2.0) 12/31/19 18:04 Ur Leukocyte Esterase Neg (Negative) 12/31/19 18:04 Urine WBC (Auto) 2.0 /HPF (0.0-6.0) 12/31/19 18:04 Urine RBC (Auto) 3.0 /HPF (0.0-6.0) 12/31/19 18:04 U Epithel Cells (Auto) 2.0 /HPF (0-13.0) 12/31/19 18:04 Urine Mucus 1+ /HPF 12/31/19 18:04 Vancomycin Trough 14.2 ug/mL (5.0-20.0) 12/13/19 15:01 Coronavirus (PCR) Negative (Negative) 12/29/19 10:07 Blood Type O POSITIVE 01/21/20 13:00 Antibody Screen Negative 01/21/20 13:00 - Diagnostic Impressions Diagnostic Impressions: Echocardiogram 11/29/19 07:37 Transthoracic Echocardiogram Indication: CHF BP: 116/72 HR: 33 Conclusions *The study is technically limited due to poor acoustic windows. *Global left ventricular systolic function is normal. *The estimated ejection fraction is 50-55%. *Mild concentric left ventricular hypertrophy is observed. *There is trace of mitral regurgitation. *There is mild tricuspid regurgitation. Findings Procedure Info: The study quality is poor. The study is technically limited due to poor acoustic windows. The study is technically limited due to patient body habitus. Left Ventricle: The left ventricular chamber size is normal. Mild concentric left ventricular hypertrophy is observed. Global left ventricular systolic function is normal. The estimated ejection fraction is 50-55%. Left Atrium: The left atrial chamber size is normal. Right Ventricle: The right ventricular cavity size is normal. Right Atrium: The right atrial cavity size is normal. Aortic Valve: The aortic valve leaflets are moderately thickened. There is trace of aortic regurgitation. There is no evidence of aortic stenosis. Mitral Valve: The mitral valve leaflets are mildly thickened. There is trace of mitral regurgitation. There is no evidence of mitral stenosis. Tricuspid Valve: There is mild tricuspid regurgitation. No pulmonary hypertension is noted. Pulmonic Valve: There is trace pulmonic regurgitation. Pericardium: There is no pericardial effusion. Aorta: There is no dilatation of the aortic root. Venous: The inferior vena cava appears normal in size. Contrast: Definity was used to optimize study. Intravenous contrast was used to enhance endocardial border definition. Measurements Chambers 2D Name Value Normal Range Ao root diameter (2D) 3.4 cm (2 - 3.7) Aortic Valve Name Value Normal Range AV Vmax 0.98 m/sec - AV VTI 16.76 cm - AV peak gradient 3.83 mmHg - AV mean gradient 2.57 mmHg - LVOT diameter 3.11 cm - LVOT Vmax 0.68 m/sec - LVOT VTI 11.52 cm - LVOT peak gradient 1.84 mmHg - LVOT mean gradient 1.27 mmHg - SV LVOT 87.31 ml - MALOU (continuity Vmax) 5.24 cm2 - MALOU (continuity VTI) 5.21 cm2 - Tricuspid Valve Name Value Normal Range IVC diameter 2.24 cm (1.2 - 2.3) Hoffman/IV: Voiding Method Condom Catheter IV Catheter Type [Right INT / Saline Lock Forearm] IV Catheter Type [Right Hand] Peripheral IV IV Catheter Type [Right Upper INT / Saline Lock arm] IV Catheter Type [Left Upper Mid-line arm] IV Catheter Type [Left Forearm INT / Saline Lock ] IV Catheter Type [Left Hand] INT / Saline Lock IV Catheter Type [Left Wrist] INT / Saline Lock IV Catheter Type [Right Peripheral IV Antecubital] Active Medications - Current Medications Current Medications: Generic Name Dose Route Start Last Admin Trade Name Freq PRN Reason Stop Dose Admin Acetaminophen 650 mg 12/31/19 11:43 01/14/20 08:27 Tylenol FEEDTUBE 650 mg Q6H PRN Administration Pain, Mild (1-3) Amiodarone HCl 200 mg 01/21/20 06:00 01/28/20 10:19 Cordarone PO 200 mg QDAY CAR Administration Lipase/Protease/Amylase 1 each 01/09/20 12:01 Pancrepetr Betancourt 10,500 Unit FEEDTUBE PRN PRN For Clogged Feeding Tube Apixaban 5 mg 01/22/20 22:00 01/28/20 21:51 Eliquis PO 5 mg Q12HR CAR Administration Protocol Atorvastatin Calcium 40 mg 01/20/20 22:00 01/28/20 22:00 Lipitor PO Not Given QHS CAR Bisacodyl 10 mg 01/06/20 13:00 01/28/20 10:09 Dulcolax NE Not Given DAILY CAR Clopidogrel Bisulfate 75 mg 01/21/20 06:00 01/28/20 10:19 Plavix PO 75 mg QDAY CAR Administration Docusate Sodium 100 mg 12/02/19 22:00 01/28/20 23:14 Colace FEEDTUBE Not Given BID CAR Famotidine 20 mg 01/12/20 10:00 01/28/20 21:52 Pepcid PO 20 mg BID CAR Administration Furosemide 40 mg 01/28/20 18:00 01/29/20 06:22 Lasix IV 40 mg 0600,1800 CAR Administration Glycopyrrolate 2 mg 01/26/20 20:00 01/28/20 21:51 Glycopyrrolate PO 2 mg TID CAR Administration Haloperidol Lactate 5 mg 12/25/19 10:00 01/22/20 11:35 Haldol IV 5 mg Q6H PRN Administration Unrespon. to mult. doses BZD's Hydrophilic Ointment 1 applic 01/17/20 15:26 Vaseline Lip Therapy TP DIRECT PRN Dry Lips Lorazepam 2 mg 12/25/19 10:00 01/28/20 23:29 Ativan IV 2 mg Q6H PRN Administration AGITATION Magnesium Hydroxide 30 ml 01/14/20 13:35 01/22/20 11:32 Milk Of Magnesia PO 30 ml QDAY PRN Administration Constip unreliev by MOM/or NPO Metoprolol Tartrate 5 mg 01/11/20 08:00 01/28/20 23:28 Metoprolol IV 5 mg Q6H PRN Administration SEE INSTRUCTIONS Metoprolol Tartrate 25 mg 01/11/20 13:00 01/29/20 06:22 Metoprolol PO 25 mg Q6H CAR Administration Morphine Sulfate 2 mg 01/06/20 15:41 01/28/20 13:37 Morphine IV 2 mg Q4H PRN Administration Pain, Moderate (4-6) Nitroglycerin 0.4 mg 01/19/20 21:09 01/20/20 03:03 Nitrostat SL 0.4 mg .Q5MIN PRN Administration Chest Pain Nitroglycerin 0.4 mg 01/21/20 06:00 01/29/20 06:21 Nitro Dur TD 0.4 mg QDAY@0600 CAR Administration Ondansetron HCl 4 mg 01/05/20 14:37 01/28/20 10:56 Zofran IV 4 mg Q8H PRN Administration Nausea And Vomiting Polyethylene Glycol 17 gm 12/04/19 22:00 01/28/20 23:14 Miralax 3350 PO Not Given QHS CAR Quetiapine Fumarate 300 mg 01/13/20 22:00 01/28/20 21:50 Seroquel PO 300 mg BID CAR Administration Scopolamine 1 each 01/07/20 20:00 01/07/20 21:08 Transderm-Scop TD 1 each Q72HR CAR Administration Simple Syrup 15 ml 01/09/20 12:01 Simple Syrup FEEDTUBE PRN PRN Hypoglycemia Simple Syrup 30 ml 01/09/20 12:01 Simple Syrup FEEDTUBE PRN PRN Hypoglycemia Sodium Bicarbonate 325 mg 01/09/20 12:01 Sodium Bicarbonate FEEDTUBE PRN PRN For Clogged Feeding Tube Sodium Chloride 10 ml 11/24/19 10:00 01/28/20 21:52 Sodium Chloride Flush Syringe 10 Ml IV 10 ml BID CAR Administration Tamsulosin HCl 0.8 mg 12/20/19 22:00 01/28/20 21:50 Flomax PO 0.8 mg QHS CAR Administration Nutrition/Malnutrition Assess - Dietary Evaluation Nutrition/Malnutrition Findings: Nutrition Notes Start: 11/24/19 12:22 Freq: Status: Active Protocol: Document 01/26/20 12:32 HEATHER (Rec: 01/26/20 13:06 HEATHER [id number]) Co-Sign 01/26/20 12:32 MK Nutrition Notes Initial or Follow up Reassessment Current Diagnosis Coronary Artery Disease,Heart Failure,Respiratory Failure, Stroke,Hyperlipidemia Other Pertinent Diagnosis Partial SBO, pneu Current Diet Vital HP 70ml/hr Labs/Tests Reviewed Pertinent Medications Lasix Height 6 ft 2 in Weight 117 kg [place] Body Weight (kg) 86.36 BMI 33.1 Weight Status Overweight Subjective/Other Information F/u TF and wt. 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 Yes Is Patient Ambulatory and/or Out of Bed No REE-([facility]-confined to bed) 2446.344 Kcal/Kg value to use for calculation 18 Approximate Energy Requirements Using 2106 kcal/Kg Calculation Used for Recommendations Kcal/kg Additional Notes Protein needs are up to 162g ( 2g/kg IBW) Fluid needs are 1.5L Nutrition Intervention Change Diet Order: Change TF Nutrition Support: Vital AF 1.2 at 75ml/hr. Flush 100ml q4h Kcal 2,160 Protein (gm) 135 Fluid (mL) 1,460 Goal #1 Meet at least 75% of pt's energy and protein needs Goal #2 Weight maintenance Anticipated Discharge Needs: unable to determine Follow-Up By: 01/29/20 Additional Comments F/u TF tolerance
[2020-01-29] MEDS: GLYCOPYRROLATE 2 MG TAB PO SCH ×3 (09:35→21:37)
[2020-01-29] MEDS: DOCUSATE SODIUM 100 MG/10 ML ORAL LIQD FEEDTUBE SCH ×2 (09:35→21:35)
[2020-01-29] MEDS: AMIODARONE 200 MG TAB PO SCH ×2 (09:36→21:36)
[2020-01-29] MEDS: APIXABAN 5 MG TAB PO SCH ×2 (09:36→21:37)
[2020-01-29] MEDS: CLOPIDOGREL 75 MG TAB PO SCH (09:37)
[2020-01-29] MEDS: FAMOTIDINE 20 MG TAB PO SCH ×2 (09:37→21:36)
[2020-01-29] MEDS: QUEtiapine 100 MG TAB PO SCH ×2 (09:37→21:35)
--- NOTE | 2020-01-29 10:51 | Progress Note ---
Assessment and Plan Chest pain, resolved LHC done 01/22/20 widely patent previous LAD stent. We found mild nonobstructive atherosclerosis of the mid right coronary artery. Otherwise the rest of the coronary system was without significant atherosclerosis. LVEF 40 to 45%. There was some hypokinesis of the basal inferior wall suggestive of previous or recent infarct. ECG done 01/19/20 shows sinus rhythm with low voltage QRS and subtle ST segment elevations in the inferolateral leads that suggested possible concern for an acute injury at that time. Atrial fibrillation, paroxysmal on amiodarone and metoprolol Ischemic Cardiomyopathy re-echo this presentation reports an LVEF 40-45%. Hx of CAD Multifocal pneumonia negative COVID-19 test x 3 Chronic Respiratory failure s/p trach History of COPD Acute PE/DVT -on Eliquis Anemia Partial SBO vs ileus Recommend: Will treat atrial fibrillation with intravenous amiodarone bolus and increase or al amiodarone dose to 200 mg twice daily. Obtain a 12 lead ECG. Continue guideline directed medical therapy for coronary artery disease. Otherwise, conservative cardiac management. Subjective Date of service: 01/29/20 Principal diagnosis: Ac hypoxemic resp failure; Pneumonia; PUI COVID-19; CHF; COPD; HTN Interval history: Patient is resting in bed comfortably. Atrial fibrillation with a mild rapid ventricular rate on telemetry. Objective Vital Signs Temp Pulse Pulse Resp BP Pulse Ox Pulse Ox 01/29/20 10:00 110 H 21 107/72 100 01/29/20 09:00 117 H 23 101/47 95 01/29/20 08:00 97.9 F 118 H 25 H 110/78 95 01/29/20 07:25 128 H 25 H 105/78 98 01/29/20 07:24 96 01/29/20 07:00 124 H 21 105/78 98 01/29/20 06:22 121 H 110/75 01/29/20 06:00 112 H 21 110/75 01/29/20 05:00 116 H 21 109/76 95 01/29/20 04:58 97 01/29/20 04:00 97.3 F L 101 H 22 106/73 01/29/20 03:00 126 H 20 93/65 01/29/20 02:00 107 H 22 98/70 01/29/20 01:00 104 H 19 101/68 11/06/20 00:20 101 H 100/73 95 01/29/20 00:00 97.6 F 108 H 24 100/73 01/28/20 23:30 97.6 F 120 H 22 109/86 96 01/28/20 23:28 143 H 109/86 01/28/20 23:08 122 H 20 109/86 01/28/20 23:00 126 H 22 103/69 01/28/20 22:58 129 H 21 103/69 01/28/20 22:00 96 H 24 103/69 01/28/20 21:00 96 H 24 99/71 01/28/20 20:00 98.8 F 95 H 24 103/67 96 01/28/20 19:52 95 01/28/20 19:51 97 H 112/76 95 01/28/20 19:50 95 01/28/20 19:00 102 H 27 H 112/76 93 01/28/20 18:16 95 H 109/69 01/28/20 18:00 88 17 109/69 94 01/28/20 17:00 95 H 22 116/78 96 01/28/20 16:00 97.9 F 95 H 23 120/72 01/28/20 15:25 97 01/28/20 15:24 95 01/28/20 15:00 98 H 20 117/76 96 01/28/20 14:00 97 H 22 111/76 01/28/20 13:36 99 H 105/61 01/28/20 13:00 102 H 21 105/61 95 01/28/20 12:00 98.5 F 99 H 22 110/77 95 01/28/20 11:27 95 01/28/20 11:00 104 H 25 H 134/98 96 - Physical Examination General: Other (awake, s/p trach) HEENT: Positive: PERRL Neck: Positive: neck supple. Negative: JVD/HJR Cardiac: Positive: irregularly irregular Neuro: Positive: Weakness Extremities: Absent: edema - Labs and Meds Comprehensive Metabolic Panel 01/29/20 Range/Units 04:55 Sodium 143 (137-145) mmol/L Potassium 3.9 (3.6-5.0) mmol/L Chloride 100.7 (98-107) mmol/L Carbon Dioxide 34 H (22-30) mmol/L BUN 20 (9-20) mg/dL Creatinine 0.6 L (0.8-1.3) mg/dL Glucose 152 H (75-100) mg/dL Calcium 9.2 (8.4-10.2) mg/dL - Allied health notes Allied health notes reviewed: nursing
[2020-01-29] MEDS: MORPHINE 2 MG/1 ML INJ IV PRN (10:53)
[2020-01-29] MEDS ORDERED: AMIODARONE 150 MG in DEXTROSE 5% IN WATER 97 ML IV ONE (11:30)
--- NOTE | 2020-01-29 13:17 | Progress Note ---
Assessment and Plan Acute hypoxemic respiratory failure Bilateral pneumonia, community acquired. Acute LLL branch P.E. Acute DVT Person under investigation for COVID-19 infection. Acute congestive heart failure exacerbation. History of cerebrovascular accident. Acute chronic obstructive pulmonary disease exacerbation. Hypertension and hypertensive urgency at presentation. History of arthritis. Leukocytosis. Lactic acidosis. Oropharyngeal dysphagia - back on MVS - begin Midodrine for BP support during dialysis - continue diuresis with lasix 40mg IV bid (follow electrolytes and correct as necessary) - target begative fluid balance - continue daytime T-piece trials and advance RTC as tolerated - continue mucomyst nebs re: secretions - continue full anticoagulation with Apixaban - continue care as below otherwise; - continue daily SAT's and SBT assessment as tolerated - continue seroquel for anxiolysis / delirium - COVID isolation per facility protocol - prn diuresis while following electrolytes / I's & O's - continue to wean oxygen for O2 sat's > 92% - continue bronchodilators with routine trach care and pulmonary hygiene per RT - continue Robinul & Scopolamine for secretion control - VAP bundle addressed (Aspiration precautions, HOB >40) - continue to wean per pulmonary driven protocols - sedation target is RASS 0 to -1 - continue prn analgesia per CPOT score - follow clinically re: fever curves / trend WBC - Avoid delirium (no benzodiazepines if they can be avoided) - Maintain sleep-wake cycle - enteral nutrition at goal rate as tolerated - continue accucheck's with glycemic control per SSI for target blood glucose goal of 140-180 mg/dL while critically ill; Avoid hypoglycemia - for VTE he is on IV Heparin - continue stress ulcer prophylaxis with Famotidine - continue mobility protocols for pressure ulcer prophylaxis - continue fall precautions - continue wound care management per RN / WCT - Supportive transfusions to keep HgB>7g/dL - CXR's and ABG's prn - Continue to monitor neurologic function - Continue chronic home medications - Continue all supportive care ........ re-evaluate in am & prn CONDITION: CRITICAL PROGNOSIS: GUARDED CODE STATUS: FULL CODE The high probability of a clinically significant, sudden or life threatening deterioration of the [Respiratory, cardiovascular & neurological] system(s) required my full and direct attention, intervention and personal management. The aggregate critical care time was [34] minutes without overlap. Time includes spent on [x] Data Review and interpretation [x] Patient assessment and monitoring of vital signs [x] Documentation [x] Medication orders and management Subjective Date of service: 01/29/20 Principal diagnosis: Ac hypoxemic resp failure; Pneumonia; PUI COVID-19; CHF; COPD; HTN Interval history: Patient is seen today for: Acute hypoxemic respiratory failure; Adan. Pneumonia (CAP); PUI COVID-19 infection; AE-CHF; AE-COPD; H/O CVA; HTN Seen and examined at bedside; 24 hour events reviewed; nursing and respiratory care staff consulted; no adverse overnight events reported to me; resting peacefully in bed; went overnight on t-piece but tired out this afternoon and back on full MVS; denies chest pains; No N/V/F/C Objective Vital Signs - 12hr 01/29/20 01/29/20 01/29/20 02:00 03:00 04:00 Temperature 97.3 F L Pulse Rate 107 H 126 H 101 H Pulse Rate [ From Monitor] Respiratory 22 20 22 Rate Blood Pressure 98/70 93/65 106/73 O2 Sat by Pulse Oximetry O2 Sat by Pulse Oximetry [ Assessment] 01/29/20 01/29/20 01/29/20 04:58 05:00 06:00 Temperature Pulse Rate 116 H 112 H Pulse Rate [ From Monitor] Respiratory 21 21 Rate Blood Pressure 109/76 110/75 O2 Sat by Pulse 95 Oximetry O2 Sat by Pulse 97 Oximetry [ Assessment] 01/29/20 01/29/20 01/29/20 06:22 07:00 07:24 Temperature Pulse Rate 121 H 124 H Pulse Rate [ From Monitor] Respiratory 21 Rate Blood Pressure 110/75 105/78 O2 Sat by Pulse 98 96 Oximetry O2 Sat by Pulse Oximetry [ Assessment] 01/29/20 01/29/20 01/29/20 07:25 08:00 09:00 Temperature 97.9 F Pulse Rate 128 H 118 H 117 H Pulse Rate [ 118 H From Monitor] Respiratory 25 H 25 H 23 Rate Blood Pressure 105/78 110/78 101/47 O2 Sat by Pulse 98 95 95 Oximetry O2 Sat by Pulse Oximetry [ Assessment] 01/29/20 01/29/20 01/29/20 10:00 11:00 12:00 Temperature 97.9 F Pulse Rate 110 H 107 H 125 H Pulse Rate [ 125 H From Monitor] Respiratory 21 23 20 Rate Blood Pressure 107/72 93/67 91/68 O2 Sat by Pulse 100 98 Oximetry O2 Sat by Pulse Oximetry [ Assessment] Constitutional: appears uncomfortable, other (elelelderly and obese male, normocephalic with mildly increased respiratory effort at rest) Eyes: non-icteric ENT: oropharynx moist, other (+ midline tracheostomy) Neck: supple, no JVD Effort: mildly labored Ascultation: Bilateral: diminished breath sounds, rhonchi Percussion: Bilateral: not dull Cardiovascular: irregular rhythm, other (S1,S2) Gastrointestinal: normoactive bowel sounds, soft, non-tender, non-distended (protuberant), other (protuberant; PEG in place) Integumentary: normal Extremities: no cyanosis, pulses normal, no ischemia or petechiae, edema (bilateral upper ) Neurologic: non-focal exam (moves extremities), pupils equal and round, CN II- XII normal, motor strength normal and (moves all extremities) Psychiatric: mood appropriate, affect normal CBC and BMP: 01/28/20 04:37 01/29/20 04:55 ABG, PT/INR, D-dimer: ABG ABG pH 7.447 pH Units (7.350-7.450) 01/25/20 21:02 POC ABG pCO2 45.6 mmHg (32.0-48.0) 01/12/20 13:58 ABG pCO2 47.0 mm Hg 01/25/20 21:02 POC ABG pO2 76.6 mmHg (83-108) L 01/12/20 13:58 ABG pO2 57.5 mm Hg (80.0-90.0) L 01/25/20 21:02 POC ABG HCO3 31.2 01/12/20 13:58 ABG O2 Saturation 90.3 % (95.0-99.0) L 01/25/20 21:02 PT/INR, D-dimer PT 16.9 Sec. (12.2-14.9) H 01/22/20 09:58 INR 1.34 (0.87-1.13) H 01/22/20 09:58 Abnormal lab findings: Abnormal Labs 11/24/19 11/24/19 11/24/19 02:53 02:53 03:45 WBC 14.3 H RBC Hgb Hct MCHC RDW 17.2 H MCV MCH Lymph % (Auto) Wilcox % (Auto) Wilcox # Eos # Lymph # (Auto) Wilcox # (Auto) Eos # (Auto) Seg Neutrophils % Seg Neuts % (Manual) Baso # (Auto) Lymphocytes % (Manual) Monocytes % (Manual) Eosinophils % (Manual) Basophils % (Manual) Seg Neutrophils # Seg Neutrophils # Man 8.3 H Lymphocytes # (Manual) Monocytes # (Manual) 0.9 H Eosinophils # (Manual) Nucleated RBC % Basophils # (Manual) PT INR APTT Heparin Anti-Xa Level ABG pH 7.313 L POC ABG pO2 ABG pO2 102.8 H ABG HCO3 ABG O2 Saturation ABG Base Excess -2.9 L POC ABG pCO2 ABG Hemoglobin ABG Oxyhemoglobin ABG Glucose Oxyhemoglobin 93.9 L Sodium Potassium Chloride Carbon Dioxide BUN Creatinine Glucose 195 H POC Glucose Lactic Acid Calcium Phosphorus Magnesium AST ALT Lactate Dehydrogenase CK-MB (CK-2) 4.3 H C-Reactive Protein NT-Pro-B Natriuret Pep 1181 H Total Protein Albumin Arterial Blood Glucose Urine WBC (Auto) 11/24/19 11/24/19 11/24/19 04:53 04:53 10:37 WBC RBC Hgb Hct MCHC RDW MCV MCH Lymph % (Auto) Wilcox % (Auto) Wilcox # Eos # Lymph # (Auto) Wilcox # (Auto) Eos # (Auto) Seg Neutrophils % Seg Neuts % (Manual) Baso # (Auto) Lymphocytes % (Manual) Monocytes % (Manual) Eosinophils % (Manual) Basophils % (Manual) Seg Neutrophils # Seg Neutrophils # Man Lymphocytes # (Manual) Monocytes # (Manual) Eosinophils # (Manual) Nucleated RBC % Basophils # (Manual) PT INR APTT Heparin Anti-Xa Level ABG pH POC ABG pO2 ABG pO2 ABG HCO3 ABG O2 Saturation ABG Base Excess POC ABG pCO2 ABG Hemoglobin ABG Oxyhemoglobin ABG Glucose Oxyhemoglobin Sodium Potassium Chloride Carbon Dioxide BUN Creatinine Glucose 162 H POC Glucose Lactic Acid 2.40 H* 2.50 H* Calcium Phosphorus Magnesium AST ALT Lactate Dehydrogenase 240 H CK-MB (CK-2) C-Reactive Protein NT-Pro-B Natriuret Pep Total Protein Albumin Arterial Blood Glucose Urine WBC (Auto) 11/24/19 11/24/1920 12:21 14:50 19:54 WBC RBC Hgb Hct MCHC RDW MCV MCH Lymph % (Auto) Wilcox % (Auto) Wilcox # Eos # Lymph # (Auto) Wilcox # (Auto) Eos # (Auto) Seg Neutrophils % Seg Neuts % (Manual) Baso # (Auto) Lymphocytes % (Manual) Monocytes % (Manual) Eosinophils % (Manual) Basophils % (Manual) Seg Neutrophils # Seg Neutrophils # Man Lymphocytes # (Manual) Monocytes # (Manual) Eosinophils # (Manual) Nucleated RBC % Basophils # (Manual) PT INR APTT Heparin Anti-Xa Level ABG pH POC ABG pO2 ABG pO2 ABG HCO3 ABG O2 Saturation ABG Base Excess POC ABG pCO2 ABG Hemoglobin ABG Oxyhemoglobin ABG Glucose Oxyhemoglobin Sodium Potassium Chloride Carbon Dioxide BUN Creatinine Glucose POC Glucose 145 H 143 H 124 H Lactic Acid Calcium Phosphorus Magnesium AST ALT Lactate Dehydrogenase CK-MB (CK-2) C-Reactive Protein NT-Pro-B Natriuret Pep Total Protein Albumin Arterial Blood Glucose Urine WBC (Auto) 11/25/19 11/25/19 11/25/19 00:18 03:18 05:11 WBC 13.7 H RBC Hgb Hct MCHC RDW 17.1 H MCV MCH Lymph % (Auto) 10.8 L Wilcox % (Auto) 8.7 H Wilcox # 1.2 H Eos # Lymph # (Auto) Wilcox # (Auto) Eos # (Auto) Seg Neutrophils % 80.2 H Seg Neuts % (Manual) Baso # (Auto) Lymphocytes % (Manual) Monocytes % (Manual) Eosinophils % (Manual) Basophils % (Manual) Seg Neutrophils # 11.0 H Seg Neutrophils # Man Lymphocytes # (Manual) Monocytes # (Manual) Eosinophils # (Manual) Nucleated RBC % Basophils # (Manual) PT INR APTT Heparin Anti-Xa Level ABG pH 7.333 L POC ABG pO2 ABG pO2 61.2 L ABG HCO3 ABG O2 Saturation 90.2 L ABG Base Excess POC ABG pCO2 ABG Hemoglobin 13.7 L ABG Oxyhemoglobin ABG Glucose Oxyhemoglobin 88.2 L Sodium Potassium Chloride Carbon Dioxide BUN Creatinine Glucose POC Glucose 109 H Lactic Acid Calcium Phosphorus Magnesium AST ALT Lactate Dehydrogenase CK-MB (CK-2) C-Reactive Protein NT-Pro-B Natriuret Pep Total Protein Albumin Arterial Blood Glucose Urine WBC (Auto) 11/25/19 11/25/19 11/26/19 05:11 11:40 03:12 WBC RBC Hgb Hct MCHC RDW MCV MCH Lymph % (Auto) Wilcox % (Auto) Wilcox # Eos # Lymph # (Auto) Wilcox # (Auto) Eos # (Auto) Seg Neutrophils % Seg Neuts % (Manual) Baso # (Auto) Lymphocytes % (Manual) Monocytes % (Manual) Eosinophils % (Manual) Basophils % (Manual) Seg Neutrophils # Seg Neutrophils # Man Lymphocytes # (Manual) Monocytes # (Manual) Eosinophils # (Manual) Nucleated RBC % Basophils # (Manual) PT INR APTT Heparin Anti-Xa Level ABG pH POC ABG pO2 ABG pO2 155.1 H ABG HCO3 27.8 H ABG O2 Saturation ABG Base Excess POC ABG pCO2 ABG Hemoglobin 12.2 L ABG Oxyhemoglobin ABG Glucose Oxyhemoglobin Sodium Potassium Chloride Carbon Dioxide BUN 23 H Creatinine Glucose 110 H POC Glucose 108 H Lactic Acid Calcium Phosphorus Magnesium AST ALT Lactate Dehydrogenase CK-MB (CK-2) C-Reactive Protein NT-Pro-B Natriuret Pep Total Protein Albumin Arterial Blood Glucose Urine WBC (Auto) 11/26/19 11/26/19 11/26/19 06:17 10:43 10:43 WBC 11.4 H RBC Hgb Hct MCHC RDW 17.1 H MCV MCH Lymph % (Auto) Wilcox % (Auto) Wilcox # Eos # Lymph # (Auto) Wilcox # (Auto) Eos # (Auto) Seg Neutrophils % Seg Neuts % (Manual) Baso # (Auto) Lymphocytes % (Manual) Monocytes % (Manual) Eosinophils % (Manual) Basophils % (Manual) Seg Neutrophils # Seg Neutrophils # Man Lymphocytes # (Manual) Monocytes # (Manual) Eosinophils # (Manual) Nucleated RBC % Basophils # (Manual) PT INR APTT Heparin Anti-Xa Level ABG pH POC ABG pO2 ABG pO2 ABG HCO3 ABG O2 Saturation ABG Base Excess POC ABG pCO2 ABG Hemoglobin ABG Oxyhemoglobin ABG Glucose Oxyhemoglobin Sodium Potassium Chloride Carbon Dioxide BUN 29 H Creatinine Glucose POC Glucose 107 H Lactic Acid Calcium Phosphorus Magnesium AST ALT Lactate Dehydrogenase CK-MB (CK-2) C-Reactive Protein NT-Pro-B Natriuret Pep Total Protein Albumin Arterial Blood Glucose Urine WBC (Auto) 09/06/1111/27/19 11/27/19 17:11 01:53 04:11 WBC RBC Hgb Hct MCHC RDW MCV MCH Lymph % (Auto) Wilcox % (Auto) Wilcox # Eos # Lymph # (Auto) Wilcox # (Auto) Eos # (Auto) Seg Neutrophils % Seg Neuts % (Manual) Baso # (Auto) Lymphocytes % (Manual) Monocytes % (Manual) Eosinophils % (Manual) Basophils % (Manual) Seg Neutrophils # Seg Neutrophils # Man Lymphocytes # (Manual) Monocytes # (Manual) Eosinophils # (Manual) Nucleated RBC % Basophils # (Manual) PT INR APTT Heparin Anti-Xa Level ABG pH POC ABG pO2 ABG pO2 ABG HCO3 29.2 H ABG O2 Saturation ABG Base Excess 3.4 H POC ABG pCO2 ABG Hemoglobin 13.3 L ABG Oxyhemoglobin ABG Glucose Oxyhemoglobin 94.5 L Sodium Potassium Chloride Carbon Dioxide BUN Creatinine Glucose POC Glucose 113 H 108 H Lactic Acid Calcium Phosphorus Magnesium AST ALT Lactate Dehydrogenase CK-MB (CK-2) C-Reactive Protein NT-Pro-B Natriuret Pep Total Protein Albumin Arterial Blood Glucose Urine WBC (Auto) 11/27/19 11/28/19 11/28/19 05:27 05:00 05:25 WBC RBC Hgb Hct MCHC RDW MCV MCH Lymph % (Auto) Wilcox % (Auto) Wilcox # Eos # Lymph # (Auto) Wilcox # (Auto) Eos # (Auto) Seg Neutrophils % Seg Neuts % (Manual) Baso # (Auto) Lymphocytes % (Manual) Monocytes % (Manual) Eosinophils % (Manual) Basophils % (Manual) Seg Neutrophils # Seg Neutrophils # Man Lymphocytes # (Manual) Monocytes # (Manual) Eosinophils # (Manual) Nucleated RBC % Basophils # (Manual) PT INR APTT Heparin Anti-Xa Level ABG pH POC ABG pO2 68.1 L ABG pO2 ABG HCO3 ABG O2 Saturation ABG Base Excess POC ABG pCO2 ABG Hemoglobin ABG Oxyhemoglobin 91.2 L ABG Glucose Oxyhemoglobin Sodium Potassium Chloride Carbon Dioxide BUN Creatinine Glucose POC Glucose 111 H 110 H Lactic Acid Calcium Phosphorus Magnesium AST ALT Lactate Dehydrogenase CK-MB (CK-2) C-Reactive Protein NT-Pro-B Natriuret Pep Total Protein Albumin Arterial Blood Glucose Urine WBC (Auto) 11/28/19 11/28/19 11/28/19 12:08 13:47 13:47 WBC 11.3 H RBC Hgb Hct MCHC RDW 16.1 H MCV MCH Lymph % (Auto) Wilcox % (Auto) 9.9 H Wilcox # 1.1 H Eos # Lymph # (Auto) Wilcox # (Auto) Eos # (Auto) Seg Neutrophils % 71.4 H Seg Neuts % (Manual) Baso # (Auto) Lymphocytes % (Manual) Monocytes % (Manual) Eosinophils % (Manual) Basophils % (Manual) Seg Neutrophils # 8.1 H Seg Neutrophils # Man Lymphocytes # (Manual) Monocytes # (Manual) Eosinophils # (Manual) Nucleated RBC % Basophils # (Manual) PT INR APTT Heparin Anti-Xa Level ABG pH POC ABG pO2 ABG pO2 ABG HCO3 ABG O2 Saturation ABG Base Excess POC ABG pCO2 ABG Hemoglobin ABG Oxyhemoglobin ABG Glucose Oxyhemoglobin Sodium Potassium Chloride Carbon Dioxide BUN 23 H Creatinine Glucose 123 H POC Glucose 112 H Lactic Acid Calcium Phosphorus Magnesium AST ALT Lactate Dehydrogenase CK-MB (CK-2) C-Reactive Protein NT-Pro-B Natriuret Pep Total Protein Albumin 3.7 L Arterial Blood Glucose Urine WBC (Auto) 11/28/19 11/29/19 11/29/19 17:26 03:55 17:04 WBC RBC Hgb Hct MCHC RDW MCV MCH Lymph % (Auto) Wilcox % (Auto) Wilcox # Eos # Lymph # (Auto) Wilcox # (Auto) Eos # (Auto) Seg Neutrophils % Seg Neuts % (Manual) Baso # (Auto) Lymphocytes % (Manual) Monocytes % (Manual) Eosinophils % (Manual) Basophils % (Manual) Seg Neutrophils # Seg Neutrophils # Man Lymphocytes # (Manual) Monocytes # (Manual) Eosinophils # (Manual) Nucleated RBC % Basophils # (Manual) PT INR APTT Heparin Anti-Xa Level ABG pH POC ABG pO2 ABG pO2 65.7 L ABG HCO3 28.3 H ABG O2 Saturation 93.9 L ABG Base Excess 3.6 H POC ABG pCO2 ABG Hemoglobin 13.3 L ABG Oxyhemoglobin ABG Glucose Oxyhemoglobin 91.5 L Sodium Potassium Chloride Carbon Dioxide BUN Creatinine Glucose POC Glucose 123 H 119 H Lactic Acid Calcium Phosphorus Magnesium AST ALT Lactate Dehydrogenase CK-MB (CK-2) C-Reactive Protein NT-Pro-B Natriuret Pep Total Protein Albumin Arterial Blood Glucose Urine WBC (Auto) 11/30/19 11/30/19 11/30/19 04:17 04:17 04:56 WBC 13.4 H RBC Hgb Hct MCHC RDW 15.6 H MCV MCH Lymph % (Auto) Wilcox % (Auto) Wilcox # Eos # Lymph # (Auto) Wilcox # (Auto) Eos # (Auto) Seg Neutrophils % Seg Neuts % (Manual) Baso # (Auto) Lymphocytes % (Manual) Monocytes % (Manual) Eosinophils % (Manual) Basophils % (Manual) Seg Neutrophils # Seg Neutrophils # Man Lymphocytes # (Manual) Monocytes # (Manual) Eosinophils # (Manual) Nucleated RBC % Basophils # (Manual) PT INR APTT Heparin Anti-Xa Level ABG pH POC ABG pO2 ABG pO2 56.3 L ABG HCO3 29.3 H ABG O2 Saturation 91.5 L ABG Base Excess 4.7 H POC ABG pCO2 ABG Hemoglobin 12.1 L ABG Oxyhemoglobin ABG Glucose Oxyhemoglobin 89.2 L Sodium 147 H Potassium Chloride Carbon Dioxide BUN 30 H Creatinine Glucose 124 H POC Glucose Lactic Acid Calcium Phosphorus Magnesium AST ALT Lactate Dehydrogenase CK-MB (CK-2) C-Reactive Protein NT-Pro-B Natriuret Pep Total Protein Albumin 3.8 L Arterial Blood Glucose Urine WBC (Auto) 11/30/19 11/30/19 11/30/19 05:51 11:54 18:17 WBC RBC Hgb Hct MCHC RDW MCV MCH Lymph % (Auto) Wilcox % (Auto) Wilcox # Eos # Lymph # (Auto) Wilcox # (Auto) Eos # (Auto) Seg Neutrophils % Seg Neuts % (Manual) Baso # (Auto) Lymphocytes % (Manual) Monocytes % (Manual) Eosinophils % (Manual) Basophils % (Manual) Seg Neutrophils # Seg Neutrophils # Man Lymphocytes # (Manual) Monocytes # (Manual) Eosinophils # (Manual) Nucleated RBC % Basophils # (Manual) PT INR APTT Heparin Anti-Xa Level ABG pH POC ABG pO2 ABG pO2 ABG HCO3 ABG O2 Saturation ABG Base Excess POC ABG pCO2 ABG Hemoglobin ABG Oxyhemoglobin ABG Glucose Oxyhemoglobin Sodium Potassium Chloride Carbon Dioxide BUN Creatinine Glucose POC Glucose 127 H 115 H 143 H Lactic Acid Calcium Phosphorus Magnesium AST ALT Lactate Dehydrogenase CK-MB (CK-2) C-Reactive Protein NT-Pro-B Natriuret Pep Total Protein Albumin Arterial Blood Glucose Urine WBC (Auto) 12/01/19 12/01/19 12/01/19 01:18 05:22 12:16 WBC RBC Hgb Hct MCHC RDW MCV MCH Lymph % (Auto) Wilcox % (Auto) Wilcox # Eos # Lymph # (Auto) Wilcox # (Auto) Eos # (Auto) Seg Neutrophils % Seg Neuts % (Manual) Baso # (Auto) Lymphocytes % (Manual) Monocytes % (Manual) Eosinophils % (Manual) Basophils % (Manual) Seg Neutrophils # Seg Neutrophils # Man Lymphocytes # (Manual) Monocytes # (Manual) Eosinophils # (Manual) Nucleated RBC % Basophils # (Manual) PT INR APTT Heparin Anti-Xa Level ABG pH POC ABG pO2 ABG pO2 ABG HCO3 ABG O2 Saturation ABG Base Excess POC ABG pCO2 ABG Hemoglobin ABG Oxyhemoglobin ABG Glucose Oxyhemoglobin Sodium Potassium 3.5 L Chloride 107.8 H Carbon Dioxide BUN 37 H Creatinine Glucose 157 H POC Glucose 118 H 148 H Lactic Acid Calcium 8.2 L D Phosphorus Magnesium AST 48 H ALT 60 H Lactate Dehydrogenase 194 H CK-MB (CK-2) C-Reactive Protein 8.50 H NT-Pro-B Natriuret Pep Total Protein 5.5 L Albumin 2.8 L Arterial Blood Glucose Urine WBC (Auto) 12/01/19 12/02/19 12/02/19 18:04 00:05 05:16 WBC 11.4 H RBC Hgb Hct MCHC RDW 15.9 H MCV MCH Lymph % (Auto) Wilcox % (Auto) 9.9 H Wilcox # 1.1 H Eos # Lymph # (Auto) Wilcox # (Auto) Eos # (Auto) Seg Neutrophils % 70.3 H Seg Neuts % (Manual) Baso # (Auto) Lymphocytes % (Manual) Monocytes % (Manual) Eosinophils % (Manual) Basophils % (Manual) Seg Neutrophils # 8.0 H Seg Neutrophils # Man Lymphocytes # (Manual) Monocytes # (Manual) Eosinophils # (Manual) Nucleated RBC % Basophils # (Manual) PT INR APTT Heparin Anti-Xa Level ABG pH POC ABG pO2 ABG pO2 ABG HCO3 ABG O2 Saturation ABG Base Excess POC ABG pCO2 ABG Hemoglobin ABG Oxyhemoglobin ABG Glucose Oxyhemoglobin Sodium Potassium Chloride Carbon Dioxide BUN Creatinine Glucose POC Glucose 143 H 107 H Lactic Acid Calcium Phosphorus Magnesium AST ALT Lactate Dehydrogenase CK-MB (CK-2) C-Reactive Protein NT-Pro-B Natriuret Pep Total Protein Albumin Arterial Blood Glucose Urine WBC (Auto) 12/02/19 12/02/19 12/02/19 05:16 06:03 11:52 WBC RBC Hgb Hct MCHC RDW MCV MCH Lymph % (Auto) Wilcox % (Auto) Wilcox # Eos # Lymph # (Auto) Wilcox # (Auto) Eos # (Auto) Seg Neutrophils % Seg Neuts % (Manual) Baso # (Auto) Lymphocytes % (Manual) Monocytes % (Manual) Eosinophils % (Manual) Basophils % (Manual) Seg Neutrophils # Seg Neutrophils # Man Lymphocytes # (Manual) Monocytes # (Manual) Eosinophils # (Manual) Nucleated RBC % Basophils # (Manual) PT INR APTT Heparin Anti-Xa Level ABG pH POC ABG pO2 ABG pO2 ABG HCO3 ABG O2 Saturation ABG Base Excess POC ABG pCO2 ABG Hemoglobin ABG Oxyhemoglobin ABG Glucose Oxyhemoglobin Sodium 146 H Potassium Chloride Carbon Dioxide BUN 28 H Creatinine Glucose 123 H POC Glucose 110 H 152 H Lactic Acid Calcium Phosphorus Magnesium AST ALT Lactate Dehydrogenase CK-MB (CK-2) C-Reactive Protein NT-Pro-B Natriuret Pep Total Protein Albumin Arterial Blood Glucose Urine WBC (Auto) 12/02/19 12/02/19 12/02/19 12:58 17:58 23:36 WBC RBC Hgb Hct MCHC RDW MCV MCH Lymph % (Auto) Wilcox % (Auto) Wilcox # Eos # Lymph # (Auto) Wilcox # (Auto) Eos # (Auto) Seg Neutrophils % Seg Neuts % (Manual) Baso # (Auto) Lymphocytes % (Manual) Monocytes % (Manual) Eosinophils % (Manual) Basophils % (Manual) Seg Neutrophils # Seg Neutrophils # Man Lymphocytes # (Manual) Monocytes # (Manual) Eosinophils # (Manual) Nucleated RBC % Basophils # (Manual) PT INR APTT Heparin Anti-Xa Level ABG pH POC ABG pO2 78.1 L ABG pO2 ABG HCO3 ABG O2 Saturation ABG Base Excess POC ABG pCO2 ABG Hemoglobin ABG Oxyhemoglobin ABG Glucose Oxyhemoglobin Sodium Potassium Chloride Carbon Dioxide BUN Creatinine Glucose POC Glucose 120 H 123 H Lactic Acid Calcium Phosphorus Magnesium AST ALT Lactate Dehydrogenase CK-MB (CK-2) C-Reactive Protein NT-Pro-B Natriuret Pep Total Protein Albumin Arterial Blood Glucose Urine WBC (Auto) 12/03/19 12/03/19 12/03/19 06:03 06:14 11:46 WBC RBC Hgb Hct MCHC RDW MCV MCH Lymph % (Auto) Wilcox % (Auto) Wilcox # Eos # Lymph # (Auto) Wilcox # (Auto) Eos # (Auto) Seg Neutrophils % Seg Neuts % (Manual) Baso # (Auto) Lymphocytes % (Manual) Monocytes % (Manual) Eosinophils % (Manual) Basophils % (Manual) Seg Neutrophils # Seg Neutrophils # Man Lymphocytes # (Manual) Monocytes # (Manual) Eosinophils # (Manual) Nucleated RBC % Basophils # (Manual) PT INR APTT Heparin Anti-Xa Level ABG pH POC ABG pO2 ABG pO2 ABG HCO3 ABG O2 Saturation ABG Base Excess POC ABG pCO2 ABG Hemoglobin ABG Oxyhemoglobin ABG Glucose Oxyhemoglobin Sodium Potassium Chloride Carbon Dioxide BUN Creatinine Glucose POC Glucose 142 H 130 H Lactic Acid Calcium Phosphorus Magnesium AST ALT Lactate Dehydrogenase CK-MB (CK-2) C-Reactive Protein NT-Pro-B Natriuret Pep Total Protein Albumin Arterial Blood Glucose Urine WBC (Auto) 8.0 H 12/03/19 12/03/19 12/04/19 15:50 17:39 00:04 WBC RBC Hgb Hct MCHC RDW MCV MCH Lymph % (Auto) Wilcox % (Auto) Wilcox # Eos # Lymph # (Auto) Wilcox # (Auto) Eos # (Auto) Seg Neutrophils % Seg Neuts % (Manual) Baso # (Auto) Lymphocytes % (Manual) Monocytes % (Manual) Eosinophils % (Manual) Basophils % (Manual) Seg Neutrophils # Seg Neutrophils # Man Lymphocytes # (Manual) Monocytes # (Manual) Eosinophils # (Manual) Nucleated RBC % Basophils # (Manual) PT INR APTT Heparin Anti-Xa Level ABG pH POC ABG pO2 ABG pO2 ABG HCO3 ABG O2 Saturation ABG Base Excess POC ABG pCO2 ABG Hemoglobin ABG Oxyhemoglobin ABG Glucose Oxyhemoglobin Sodium Potassium Chloride Carbon Dioxide BUN Creatinine Glucose POC Glucose 146 H 133 H Lactic Acid Calcium Phosphorus 2.40 L Magnesium AST ALT Lactate Dehydrogenase CK-MB (CK-2) C-Reactive Protein NT-Pro-B Natriuret Pep Total Protein Albumin Arterial Blood Glucose Urine WBC (Auto) 12/04/19 12/04/19 12/04/19 03:58 03:58 05:22 WBC 12.5 H RBC Hgb 11.2 L Hct 35.2 L MCHC RDW 16.0 H MCV MCH Lymph % (Auto) Wilcox % (Auto) 9.6 H Wilcox # 1.2 H Eos # 0.5 H Lymph # (Auto) Wilcox # (Auto) Eos # (Auto) Seg Neutrophils % Seg Neuts % (Manual) Baso # (Auto) Lymphocytes % (Manual) Monocytes % (Manual) Eosinophils % (Manual) Basophils % (Manual) Seg Neutrophils # 8.6 H Seg Neutrophils # Man Lymphocytes # (Manual) Monocytes # (Manual) Eosinophils # (Manual) Nucleated RBC % Basophils # (Manual) PT INR APTT Heparin Anti-Xa Level ABG pH POC ABG pO2 ABG pO2 ABG HCO3 ABG O2 Saturation ABG Base Excess POC ABG pCO2 ABG Hemoglobin ABG Oxyhemoglobin ABG Glucose Oxyhemoglobin Sodium 146 H Potassium Chloride 108.6 H Carbon Dioxide BUN 30 H Creatinine 0.7 L Glucose 121 H POC Glucose 132 H Lactic Acid Calcium Phosphorus Magnesium AST ALT Lactate Dehydrogenase CK-MB (CK-2) C-Reactive Protein NT-Pro-B Natriuret Pep Total Protein Albumin Arterial Blood Glucose Urine WBC (Auto) 12/04/19 12/04/19 12/05/19 13:26 18:43 00:19 WBC RBC Hgb Hct MCHC RDW MCV MCH Lymph % (Auto) Wilcox % (Auto) Wilcox # Eos # Lymph # (Auto) Wilcox # (Auto) Eos # (Auto) Seg Neutrophils % Seg Neuts % (Manual) Baso # (Auto) Lymphocytes % (Manual) Monocytes % (Manual) Eosinophils % (Manual) Basophils % (Manual) Seg Neutrophils # Seg Neutrophils # Man Lymphocytes # (Manual) Monocytes # (Manual) Eosinophils # (Manual) Nucleated RBC % Basophils # (Manual) PT INR APTT Heparin Anti-Xa Level ABG pH POC ABG pO2 ABG pO2 ABG HCO3 ABG O2 Saturation ABG Base Excess POC ABG pCO2 ABG Hemoglobin ABG Oxyhemoglobin ABG Glucose Oxyhemoglobin Sodium Potassium Chloride Carbon Dioxide BUN Creatinine Glucose POC Glucose 185 H 156 H 150 H Lactic Acid Calcium Phosphorus Magnesium AST ALT Lactate Dehydrogenase CK-MB (CK-2) C-Reactive Protein NT-Pro-B Natriuret Pep Total Protein Albumin Arterial Blood Glucose Urine WBC (Auto) 12/05/19 12/05/19 12/05/19 03:37 03:37 05:14 WBC 16.3 H RBC Hgb 11.4 L Hct MCHC RDW 15.6 H MCV MCH Lymph % (Auto) 9.9 L Wilcox % (Auto) 9.7 H Wilcox # 1.6 H Eos # Lymph # (Auto) Wilcox # (Auto) Eos # (Auto) Seg Neutrophils % 78.0 H Seg Neuts % (Manual) Baso # (Auto) Lymphocytes % (Manual) Monocytes % (Manual) Eosinophils % (Manual) Basophils % (Manual) Seg Neutrophils # 12.7 H Seg Neutrophils # Man Lymphocytes # (Manual) Monocytes # (Manual) Eosinophils # (Manual) Nucleated RBC % Basophils # (Manual) PT INR APTT Heparin Anti-Xa Level ABG pH POC ABG pO2 ABG pO2 ABG HCO3 ABG O2 Saturation ABG Base Excess POC ABG pCO2 ABG Hemoglobin ABG Oxyhemoglobin ABG Glucose Oxyhemoglobin Sodium 146 H Potassium Chloride 107.2 H Carbon Dioxide BUN 27 H Creatinine 0.7 L Glucose 171 H POC Glucose 168 H Lactic Acid Calcium Phosphorus Magnesium AST ALT Lactate Dehydrogenase CK-MB (CK-2) C-Reactive Protein NT-Pro-B Natriuret Pep Total Protein Albumin Arterial Blood Glucose Urine WBC (Auto) 12/05/19 12/05/19 12/05/19 12:31 18:10 23:58 WBC RBC Hgb Hct MCHC RDW MCV MCH Lymph % (Auto) Wilcox % (Auto) Wilcox # Eos # Lymph # (Auto) Wilcox # (Auto) Eos # (Auto) Seg Neutrophils % Seg Neuts % (Manual) Baso # (Auto) Lymphocytes % (Manual) Monocytes % (Manual) Eosinophils % (Manual) Basophils % (Manual) Seg Neutrophils # Seg Neutrophils # Man Lymphocytes # (Manual) Monocytes # (Manual) Eosinophils # (Manual) Nucleated RBC % Basophils # (Manual) PT INR APTT Heparin Anti-Xa Level ABG pH POC ABG pO2 ABG pO2 ABG HCO3 ABG O2 Saturation ABG Base Excess POC ABG pCO2 ABG Hemoglobin ABG Oxyhemoglobin ABG Glucose Oxyhemoglobin Sodium Potassium Chloride Carbon Dioxide BUN Creatinine Glucose POC Glucose 159 H 198 H 115 H Lactic Acid Calcium Phosphorus Magnesium AST ALT Lactate Dehydrogenase CK-MB (CK-2) C-Reactive Protein NT-Pro-B Natriuret Pep Total Protein Albumin Arterial Blood Glucose Urine WBC (Auto) 12/06/19 12/06/19 12/06/19 05:24 05:24 05:25 WBC 14.9 H RBC Hgb 10.8 L Hct 34.0 L MCHC RDW 15.6 H MCV MCH Lymph % (Auto) 10.7 L Wilcox % (Auto) 8.3 H Wilcox # 1.2 H Eos # Lymph # (Auto) Wilcox # (Auto) Eos # (Auto) Seg Neutrophils % 78.7 H Seg Neuts % (Manual) Baso # (Auto) Lymphocytes % (Manual) Monocytes % (Manual) Eosinophils % (Manual) Basophils % (Manual) Seg Neutrophils # 11.7 H Seg Neutrophils # Man Lymphocytes # (Manual) Monocytes # (Manual) Eosinophils # (Manual) Nucleated RBC % Basophils # (Manual) PT INR APTT Heparin Anti-Xa Level ABG pH POC ABG pO2 ABG pO2 ABG HCO3 ABG O2 Saturation ABG Base Excess POC ABG pCO2 ABG Hemoglobin ABG Oxyhemoglobin ABG Glucose Oxyhemoglobin Sodium 148 H Potassium 5.1 H Chloride 107.6 H Carbon Dioxide BUN 27 H Creatinine 0.7 L Glucose 155 H POC Glucose 157 H Lactic Acid Calcium Phosphorus Magnesium AST ALT Lactate Dehydrogenase CK-MB (CK-2) C-Reactive Protein NT-Pro-B Natriuret Pep Total Protein Albumin Arterial Blood Glucose Urine WBC (Auto) 12/07/19 12/07/19 12/07/19 00:13 05:34 11:33 WBC RBC Hgb Hct MCHC RDW MCV MCH Lymph % (Auto) Wilcox % (Auto) Wilcox # Eos # Lymph # (Auto) Wilcox # (Auto) Eos # (Auto) Seg Neutrophils % Seg Neuts % (Manual) Baso # (Auto) Lymphocytes % (Manual) Monocytes % (Manual) Eosinophils % (Manual) Basophils % (Manual) Seg Neutrophils # Seg Neutrophils # Man Lymphocytes # (Manual) Monocytes # (Manual) Eosinophils # (Manual) Nucleated RBC % Basophils # (Manual) PT INR APTT Heparin Anti-Xa Level ABG pH POC ABG pO2 ABG pO2 ABG HCO3 ABG O2 Saturation ABG Base Excess POC ABG pCO2 ABG Hemoglobin ABG Oxyhemoglobin ABG Glucose Oxyhemoglobin Sodium Potassium Chloride Carbon Dioxide BUN Creatinine Glucose POC Glucose 142 H 111 H 169 H Lactic Acid Calcium Phosphorus Magnesium AST ALT Lactate Dehydrogenase CK-MB (CK-2) C-Reactive Protein NT-Pro-B Natriuret Pep Total Protein Albumin Arterial Blood Glucose Urine WBC (Auto) 12/07/19 12/07/19 12/07/19 12:41 13:25 18:19 WBC 12.4 H RBC 3.53 L Hgb 10.2 L Hct 32.1 L MCHC RDW 15.3 H MCV MCH Lymph % (Auto) 10.6 L Wilcox % (Auto) 7.8 H Wilcox # 1.0 H Eos # Lymph # (Auto) Wilcox # (Auto) Eos # (Auto) Seg Neutrophils % 77.6 H Seg Neuts % (Manual) Baso # (Auto) Lymphocytes % (Manual) Monocytes % (Manual) Eosinophils % (Manual) Basophils % (Manual) Seg Neutrophils # 9.6 H Seg Neutrophils # Man Lymphocytes # (Manual) Monocytes # (Manual) Eosinophils # (Manual) Nucleated RBC % Basophils # (Manual) PT INR APTT Heparin Anti-Xa Level ABG pH POC ABG pO2 ABG pO2 ABG HCO3 ABG O2 Saturation ABG Base Excess POC ABG pCO2 ABG Hemoglobin ABG Oxyhemoglobin ABG Glucose Oxyhemoglobin Sodium 149 H Potassium Chloride 108.4 H Carbon Dioxide BUN 26 H Creatinine 0.6 L Glucose 149 H POC Glucose 164 H Lactic Acid Calcium Phosphorus Magnesium 2.60 H AST 121 H ALT 145 H Lactate Dehydrogenase CK-MB (CK-2) C-Reactive Protein NT-Pro-B Natriuret Pep Total Protein Albumin 2.6 L Arterial Blood Glucose Urine WBC (Auto) 12/07/19 12/08/19 12/08/19 22:25 00:02 03:55 WBC 13.3 H RBC 3.40 L Hgb 9.7 L Hct 30.8 L MCHC 31 L RDW 15.5 H MCV MCH Lymph % (Auto) Wilcox % (Auto) 8.1 H Wilcox # 1.1 H Eos # Lymph # (Auto) Wilcox # (Auto) Eos # (Auto) Seg Neutrophils % 73.0 H Seg Neuts % (Manual) Baso # (Auto) Lymphocytes % (Manual) Monocytes % (Manual) Eosinophils % (Manual) Basophils % (Manual) Seg Neutrophils # 9.7 H Seg Neutrophils # Man Lymphocytes # (Manual) Monocytes # (Manual) Eosinophils # (Manual) Nucleated RBC % Basophils # (Manual) PT INR APTT Heparin Anti-Xa Level 0.12 L ABG pH POC ABG pO2 ABG pO2 ABG HCO3 ABG O2 Saturation ABG Base Excess POC ABG pCO2 ABG Hemoglobin ABG Oxyhemoglobin ABG Glucose Oxyhemoglobin Sodium Potassium Chloride Carbon Dioxide BUN Creatinine Glucose POC Glucose 151 H Lactic Acid Calcium Phosphorus Magnesium AST ALT Lactate Dehydrogenase CK-MB (CK-2) C-Reactive Protein NT-Pro-B Natriuret Pep Total Protein Albumin Arterial Blood Glucose Urine WBC (Auto) 12/08/19 12/08/19 12/08/19 03:55 05:21 06:01 WBC RBC Hgb Hct MCHC RDW MCV MCH Lymph % (Auto) Wilcox % (Auto) Wilcox # Eos # Lymph # (Auto) Wilcox # (Auto) Eos # (Auto) Seg Neutrophils % Seg Neuts % (Manual) Baso # (Auto) Lymphocytes % (Manual) Monocytes % (Manual) Eosinophils % (Manual) Basophils % (Manual) Seg Neutrophils # Seg Neutrophils # Man Lymphocytes # (Manual) Monocytes # (Manual) Eosinophils # (Manual) Nucleated RBC % Basophils # (Manual) PT INR APTT Heparin Anti-Xa Level 0.20 L ABG pH POC ABG pO2 ABG pO2 ABG HCO3 ABG O2 Saturation ABG Base Excess POC ABG pCO2 ABG Hemoglobin ABG Oxyhemoglobin ABG Glucose Oxyhemoglobin Sodium 149 H Potassium Chloride 108.0 H Carbon Dioxide BUN 28 H Creatinine 0.6 L Glucose 144 H POC Glucose 143 H Lactic Acid Calcium Phosphorus Magnesium AST 98 H ALT 145 H Lactate Dehydrogenase CK-MB (CK-2) C-Reactive Protein NT-Pro-B Natriuret Pep Total Protein 6.0 L Albumin 2.4 L Arterial Blood Glucose Urine WBC (Auto) 12/08/19 12/08/19 12/08/19 12:08 18:11 23:53 WBC RBC Hgb Hct MCHC RDW MCV MCH Lymph % (Auto) Wilcox % (Auto) Wilcox # Eos # Lymph # (Auto) Wilcox # (Auto) Eos # (Auto) Seg Neutrophils % Seg Neuts % (Manual) Baso # (Auto) Lymphocytes % (Manual) Monocytes % (Manual) Eosinophils % (Manual) Basophils % (Manual) Seg Neutrophils # Seg Neutrophils # Man Lymphocytes # (Manual) Monocytes # (Manual) Eosinophils # (Manual) Nucleated RBC % Basophils # (Manual) PT INR APTT Heparin Anti-Xa Level ABG pH POC ABG pO2 ABG pO2 ABG HCO3 ABG O2 Saturation ABG Base Excess POC ABG pCO2 ABG Hemoglobin ABG Oxyhemoglobin ABG Glucose Oxyhemoglobin Sodium Potassium Chloride Carbon Dioxide BUN Creatinine Glucose POC Glucose 172 H 122 H 162 H Lactic Acid Calcium Phosphorus Magnesium AST ALT Lactate Dehydrogenase CK-MB (CK-2) C-Reactive Protein NT-Pro-B Natriuret Pep Total Protein Albumin Arterial Blood Glucose Urine WBC (Auto) 12/09/19 12/09/19 12/09/19 04:03 04:03 05:53 WBC RBC Hgb 9.1 L Hct 28.9 L MCHC RDW MCV MCH Lymph % (Auto) Wilcox % (Auto) Wilcox # Eos # Lymph # (Auto) Wilcox # (Auto) Eos # (Auto) Seg Neutrophils % Seg Neuts % (Manual) Baso # (Auto) Lymphocytes % (Manual) Monocytes % (Manual) Eosinophils % (Manual) Basophils % (Manual) Seg Neutrophils # Seg Neutrophils # Man Lymphocytes # (Manual) Monocytes # (Manual) Eosinophils # (Manual) Nucleated RBC % Basophils # (Manual) PT INR APTT Heparin Anti-Xa Level 0.15 L ABG pH POC ABG pO2 ABG pO2 ABG HCO3 ABG O2 Saturation ABG Base Excess POC ABG pCO2 ABG Hemoglobin ABG Oxyhemoglobin ABG Glucose Oxyhemoglobin Sodium Potassium Chloride Carbon Dioxide BUN Creatinine Glucose POC Glucose 124 H Lactic Acid Calcium Phosphorus Magnesium AST ALT Lactate Dehydrogenase CK-MB (CK-2) C-Reactive Protein NT-Pro-B Natriuret Pep Total Protein Albumin Arterial Blood Glucose Urine WBC (Auto) 12/09/19 12/09/19 12/10/19 09:43 12:41 00:13 WBC RBC Hgb Hct MCHC RDW MCV MCH Lymph % (Auto) Wilcox % (Auto) Wilcox # Eos # Lymph # (Auto) Wilcox # (Auto) Eos # (Auto) Seg Neutrophils % Seg Neuts % (Manual) Baso # (Auto) Lymphocytes % (Manual) Monocytes % (Manual) Eosinophils % (Manual) Basophils % (Manual) Seg Neutrophils # Seg Neutrophils # Man Lymphocytes # (Manual) Monocytes # (Manual) Eosinophils # (Manual) Nucleated RBC % Basophils # (Manual) PT INR APTT Heparin Anti-Xa Level ABG pH POC ABG pO2 ABG pO2 ABG HCO3 ABG O2 Saturation ABG Base Excess POC ABG pCO2 ABG Hemoglobin ABG Oxyhemoglobin ABG Glucose Oxyhemoglobin Sodium Potassium Chloride Carbon Dioxide BUN 25 H Creatinine 0.6 L Glucose 131 H POC Glucose 109 H 120 H Lactic Acid Calcium Phosphorus Magnesium AST ALT Lactate Dehydrogenase CK-MB (CK-2) C-Reactive Protein NT-Pro-B Natriuret Pep Total Protein Albumin Arterial Blood Glucose Urine WBC (Auto) 12/10/19 12/10/19 12/10/19 04:14 04:14 12:00 WBC 13.3 H RBC 3.34 L Hgb 9.6 L Hct 30.4 L MCHC RDW 15.4 H MCV MCH Lymph % (Auto) Wilcox % (Auto) Wilcox # Eos # Lymph # (Auto) Wilcox # (Auto) Eos # (Auto) Seg Neutrophils % Seg Neuts % (Manual) 75.0 H Baso # (Auto) Lymphocytes % (Manual) 13.0 L Monocytes % (Manual) 8.0 H Eosinophils % (Manual) Basophils % (Manual) 2.0 H Seg Neutrophils # Seg Neutrophils # Man 10.0 H Lymphocytes # (Manual) Monocytes # (Manual) 1.1 H Eosinophils # (Manual) Nucleated RBC % Basophils # (Manual) 0.3 H PT INR APTT Heparin Anti-Xa Level ABG pH POC ABG pO2 ABG pO2 ABG HCO3 ABG O2 Saturation ABG Base Excess POC ABG pCO2 ABG Hemoglobin ABG Oxyhemoglobin ABG Glucose Oxyhemoglobin Sodium 147 H Potassium Chloride 108.3 H Carbon Dioxide BUN 21 H Creatinine 0.6 L Glucose 104 H POC Glucose 133 H Lactic Acid Calcium Phosphorus Magnesium AST ALT Lactate Dehydrogenase CK-MB (CK-2) C-Reactive Protein NT-Pro-B Natriuret Pep Total Protein Albumin Arterial Blood Glucose Urine WBC (Auto) 12/10/19 12/10/19 12/11/19 18:44 21:20 00:08 WBC 14.9 H RBC 3.36 L Hgb 9.6 L Hct 30.5 L MCHC RDW 15.4 H MCV MCH Lymph % (Auto) Wilcox % (Auto) Wilcox # Eos # Lymph # (Auto) Wilcox # (Auto) Eos # (Auto) Seg Neutrophils % Seg Neuts % (Manual) Baso # (Auto) Lymphocytes % (Manual) Monocytes % (Manual) Eosinophils % (Manual) Basophils % (Manual) Seg Neutrophils # Seg Neutrophils # Man Lymphocytes # (Manual) Monocytes # (Manual) Eosinophils # (Manual) Nucleated RBC % Basophils # (Manual) PT INR APTT Heparin Anti-Xa Level ABG pH POC ABG pO2 ABG pO2 ABG HCO3 ABG O2 Saturation ABG Base Excess POC ABG pCO2 ABG Hemoglobin ABG Oxyhemoglobin ABG Glucose Oxyhemoglobin Sodium Potassium Chloride Carbon Dioxide BUN Creatinine Glucose POC Glucose 119 H 134 H Lactic Acid Calcium Phosphorus Magnesium AST ALT Lactate Dehydrogenase CK-MB (CK-2) C-Reactive Protein NT-Pro-B Natriuret Pep Total Protein Albumin Arterial Blood Glucose Urine WBC (Auto) 12/11/19 12/11/19 12/11/19 03:54 07:28 08:36 WBC 11.9 H RBC 3.25 L Hgb 9.6 L Hct 29.2 L MCHC RDW 15.7 H MCV MCH Lymph % (Auto) Wilcox % (Auto) Wilcox # Eos # Lymph # (Auto) Wilcox # (Auto) Eos # (Auto) Seg Neutrophils % Seg Neuts % (Manual) Baso # (Auto) Lymphocytes % (Manual) Monocytes % (Manual) Eosinophils % (Manual) Basophils % (Manual) Seg Neutrophils # Seg Neutrophils # Man Lymphocytes # (Manual) Monocytes # (Manual) Eosinophils # (Manual) Nucleated RBC % Basophils # (Manual) PT INR APTT Heparin Anti-Xa Level 0.10 L 0.16 L ABG pH POC ABG pO2 ABG pO2 ABG HCO3 ABG O2 Saturation ABG Base Excess POC ABG pCO2 ABG Hemoglobin ABG Oxyhemoglobin ABG Glucose Oxyhemoglobin Sodium Potassium Chloride Carbon Dioxide BUN Creatinine Glucose POC Glucose Lactic Acid Calcium Phosphorus Magnesium AST ALT Lactate Dehydrogenase CK-MB (CK-2) C-Reactive Protein NT-Pro-B Natriuret Pep Total Protein Albumin Arterial Blood Glucose Urine WBC (Auto) 12/11/19 12/11/19 12/11/19 08:36 11:45 17:15 WBC RBC Hgb Hct MCHC RDW MCV MCH Lymph % (Auto) Wilcox % (Auto) Wilcox # Eos # Lymph # (Auto) Wilcox # (Auto) Eos # (Auto) Seg Neutrophils % Seg Neuts % (Manual) Baso # (Auto) Lymphocytes % (Manual) Monocytes % (Manual) Eosinophils % (Manual) Basophils % (Manual) Seg Neutrophils # Seg Neutrophils # Man Lymphocytes # (Manual) Monocytes # (Manual) Eosinophils # (Manual) Nucleated RBC % Basophils # (Manual) PT INR APTT Heparin Anti-Xa Level ABG pH POC ABG pO2 ABG pO2 ABG HCO3 ABG O2 Saturation ABG Base Excess POC ABG pCO2 ABG Hemoglobin ABG Oxyhemoglobin ABG Glucose Oxyhemoglobin Sodium Potassium Chloride Carbon Dioxide BUN Creatinine 0.5 L Glucose 128 H POC Glucose 136 H 109 H Lactic Acid Calcium Phosphorus Magnesium AST ALT Lactate Dehydrogenase CK-MB (CK-2) C-Reactive Protein NT-Pro-B Natriuret Pep Total Protein Albumin Arterial Blood Glucose Urine WBC (Auto) 12/12/19 12/12/19 12/12/19 00:03 05:53 05:53 WBC RBC Hgb 8.8 L Hct 27.6 L MCHC RDW MCV MCH Lymph % (Auto) Wilcox % (Auto) Wilcox # Eos # Lymph # (Auto) Wilcox # (Auto) Eos # (Auto) Seg Neutrophils % Seg Neuts % (Manual) Baso # (Auto) Lymphocytes % (Manual) Monocytes % (Manual) Eosinophils % (Manual) Basophils % (Manual) Seg Neutrophils # Seg Neutrophils # Man Lymphocytes # (Manual) Monocytes # (Manual) Eosinophils # (Manual) Nucleated RBC % Basophils # (Manual) PT INR APTT Heparin Anti-Xa Level 0.22 L ABG pH POC ABG pO2 ABG pO2 ABG HCO3 ABG O2 Saturation ABG Base Excess POC ABG pCO2 ABG Hemoglobin ABG Oxyhemoglobin ABG Glucose Oxyhemoglobin Sodium Potassium Chloride Carbon Dioxide BUN Creatinine Glucose POC Glucose 116 H Lactic Acid Calcium Phosphorus Magnesium AST ALT Lactate Dehydrogenase CK-MB (CK-2) C-Reactive Protein NT-Pro-B Natriuret Pep Total Protein Albumin Arterial Blood Glucose Urine WBC (Auto) 12/12/19 12/12/19 12/12/19 09:38 12:18 17:44 WBC RBC Hgb Hct MCHC RDW MCV MCH Lymph % (Auto) Wilcox % (Auto) Wilcox # Eos # Lymph # (Auto) Wilcox # (Auto) Eos # (Auto) Seg Neutrophils % Seg Neuts % (Manual) Baso # (Auto) Lymphocytes % (Manual) Monocytes % (Manual) Eosinophils % (Manual) Basophils % (Manual) Seg Neutrophils # Seg Neutrophils # Man Lymphocytes # (Manual) Monocytes # (Manual) Eosinophils # (Manual) Nucleated RBC % Basophils # (Manual) PT INR APTT Heparin Anti-Xa Level ABG pH POC ABG pO2 ABG pO2 ABG HCO3 ABG O2 Saturation ABG Base Excess POC ABG pCO2 ABG Hemoglobin ABG Oxyhemoglobin ABG Glucose Oxyhemoglobin Sodium Potassium Chloride Carbon Dioxide BUN Creatinine Glucose POC Glucose 115 H 146 H 146 H Lactic Acid Calcium Phosphorus Magnesium AST ALT Lactate Dehydrogenase CK-MB (CK-2) C-Reactive Protein NT-Pro-B Natriuret Pep Total Protein Albumin Arterial Blood Glucose Urine WBC (Auto) 12/12/19 12/13/19 12/13/19 23:33 05:32 05:32 WBC 13.1 H RBC 3.27 L Hgb 9.5 L Hct 29.3 L MCHC RDW 15.6 H MCV MCH Lymph % (Auto) Wilcox % (Auto) Wilcox # Eos # Lymph # (Auto) Wilcox # (Auto) Eos # (Auto) Seg Neutrophils % Seg Neuts % (Manual) 74.0 H Baso # (Auto) Lymphocytes % (Manual) 8.0 L Monocytes % (Manual) 9.0 H Eosinophils % (Manual) 5.0 H Basophils % (Manual) Seg Neutrophils # Seg Neutrophils # Man 9.7 H Lymphocytes # (Manual) 1.0 L Monocytes # (Manual) 1.2 H Eosinophils # (Manual) 0.7 H Nucleated RBC % Basophils # (Manual) PT INR APTT Heparin Anti-Xa Level 0.20 L ABG pH POC ABG pO2 ABG pO2 ABG HCO3 ABG O2 Saturation ABG Base Excess POC ABG pCO2 ABG Hemoglobin ABG Oxyhemoglobin ABG Glucose Oxyhemoglobin Sodium Potassium Chloride Carbon Dioxide BUN Creatinine Glucose POC Glucose 126 H Lactic Acid Calcium Phosphorus Magnesium AST ALT Lactate Dehydrogenase CK-MB (CK-2) C-Reactive Protein NT-Pro-B Natriuret Pep Total Protein Albumin Arterial Blood Glucose Urine WBC (Auto) 12/13/19 12/13/19 12/13/19 05:32 05:46 11:57 WBC RBC Hgb Hct MCHC RDW MCV MCH Lymph % (Auto) Wilcox % (Auto) Wilcox # Eos # Lymph # (Auto) Wilcox # (Auto) Eos # (Auto) Seg Neutrophils % Seg Neuts % (Manual) Baso # (Auto) Lymphocytes % (Manual) Monocytes % (Manual) Eosinophils % (Manual) Basophils % (Manual) Seg Neutrophils # Seg Neutrophils # Man Lymphocytes # (Manual) Monocytes # (Manual) Eosinophils # (Manual) Nucleated RBC % Basophils # (Manual) PT INR APTT Heparin Anti-Xa Level ABG pH POC ABG pO2 ABG pO2 ABG HCO3 ABG O2 Saturation ABG Base Excess POC ABG pCO2 ABG Hemoglobin ABG Oxyhemoglobin ABG Glucose Oxyhemoglobin Sodium Potassium Chloride Carbon Dioxide 31 H BUN Creatinine 0.6 L Glucose 114 H POC Glucose 118 H 133 H Lactic Acid Calcium Phosphorus Magnesium AST ALT Lactate Dehydrogenase CK-MB (CK-2) C-Reactive Protein NT-Pro-B Natriuret Pep Total Protein Albumin Arterial Blood Glucose Urine WBC (Auto) 12/13/19 12/13/19 12/14/19 17:44 23:46 05:32 WBC RBC Hgb Hct MCHC RDW MCV MCH Lymph % (Auto) Wilcox % (Auto) Wilcox # Eos # Lymph # (Auto) Wilcox # (Auto) Eos # (Auto) Seg Neutrophils % Seg Neuts % (Manual) Baso # (Auto) Lymphocytes % (Manual) Monocytes % (Manual) Eosinophils % (Manual) Basophils % (Manual) Seg Neutrophils # Seg Neutrophils # Man Lymphocytes # (Manual) Monocytes # (Manual) Eosinophils # (Manual) Nucleated RBC % Basophils # (Manual) PT INR APTT Heparin Anti-Xa Level ABG pH POC ABG pO2 ABG pO2 ABG HCO3 ABG O2 Saturation ABG Base Excess POC ABG pCO2 ABG Hemoglobin ABG Oxyhemoglobin ABG Glucose Oxyhemoglobin Sodium Potassium Chloride Carbon Dioxide BUN Creatinine Glucose POC Glucose 161 H 126 H 139 H Lactic Acid Calcium Phosphorus Magnesium AST ALT Lactate Dehydrogenase CK-MB (CK-2) C-Reactive Protein NT-Pro-B Natriuret Pep Total Protein Albumin Arterial Blood Glucose Urine WBC (Auto) 12/14/19 12/14/19 12/14/19 06:03 06:03 09:37 WBC RBC Hgb 9.6 L Hct 30.4 L MCHC RDW MCV MCH Lymph % (Auto) Wilcox % (Auto) Wilcox # Eos # Lymph # (Auto) Wilcox # (Auto) Eos # (Auto) Seg Neutrophils % Seg Neuts % (Manual) Baso # (Auto) Lymphocytes % (Manual) Monocytes % (Manual) Eosinophils % (Manual) Basophils % (Manual) Seg Neutrophils # Seg Neutrophils # Man Lymphocytes # (Manual) Monocytes # (Manual) Eosinophils # (Manual) Nucleated RBC % Basophils # (Manual) PT INR APTT Heparin Anti-Xa Level 0.24 L ABG pH POC ABG pO2 ABG pO2 ABG HCO3 ABG O2 Saturation ABG Base Excess POC ABG pCO2 ABG Hemoglobin ABG Oxyhemoglobin ABG Glucose Oxyhemoglobin Sodium Potassium Chloride Carbon Dioxide BUN Creatinine 0.6 L Glucose 162 H POC Glucose Lactic Acid Calcium Phosphorus Magnesium AST 71 H ALT 118 H Lactate Dehydrogenase CK-MB (CK-2) C-Reactive Protein NT-Pro-B Natriuret Pep Total Protein 6.2 L Albumin 2.3 L Arterial Blood Glucose Urine WBC (Auto) 12/14/19 12/14/19 12/15/19 12:06 18:18 00:19 WBC RBC Hgb Hct MCHC RDW MCV MCH Lymph % (Auto) Wilcox % (Auto) Wilcox # Eos # Lymph # (Auto) Wilcox # (Auto) Eos # (Auto) Seg Neutrophils % Seg Neuts % (Manual) Baso # (Auto) Lymphocytes % (Manual) Monocytes % (Manual) Eosinophils % (Manual) Basophils % (Manual) Seg Neutrophils # Seg Neutrophils # Man Lymphocytes # (Manual) Monocytes # (Manual) Eosinophils # (Manual) Nucleated RBC % Basophils # (Manual) PT INR APTT Heparin Anti-Xa Level ABG pH POC ABG pO2 ABG pO2 ABG HCO3 ABG O2 Saturation ABG Base Excess POC ABG pCO2 ABG Hemoglobin ABG Oxyhemoglobin ABG Glucose Oxyhemoglobin Sodium Potassium Chloride Carbon Dioxide BUN Creatinine Glucose POC Glucose 147 H 166 H 123 H Lactic Acid Calcium Phosphorus Magnesium AST ALT Lactate Dehydrogenase CK-MB (CK-2) C-Reactive Protein NT-Pro-B Natriuret Pep Total Protein Albumin Arterial Blood Glucose Urine WBC (Auto) 12/15/19 12/15/19 12/15/19 05:28 05:29 05:29 WBC 14.9 H RBC 3.19 L Hgb 9.1 L Hct 28.7 L MCHC RDW 16.0 H MCV MCH Lymph % (Auto) Wilcox % (Auto) Wilcox # Eos # Lymph # (Auto) Wilcox # (Auto) Eos # (Auto) Seg Neutrophils % Seg Neuts % (Manual) Baso # (Auto) Lymphocytes % (Manual) Monocytes % (Manual) Eosinophils % (Manual) Basophils % (Manual) Seg Neutrophils # Seg Neutrophils # Man Lymphocytes # (Manual) Monocytes # (Manual) Eosinophils # (Manual) Nucleated RBC % Basophils # (Manual) PT INR APTT Heparin Anti-Xa Level 0.19 L ABG pH POC ABG pO2 ABG pO2 ABG HCO3 ABG O2 Saturation ABG Base Excess POC ABG pCO2 ABG Hemoglobin ABG Oxyhemoglobin ABG Glucose Oxyhemoglobin Sodium Potassium Chloride Carbon Dioxide BUN Creatinine 0.6 L Glucose 110 H POC Glucose Lactic Acid Calcium Phosphorus Magnesium AST ALT Lactate Dehydrogenase CK-MB (CK-2) C-Reactive Protein NT-Pro-B Natriuret Pep Total Protein Albumin Arterial Blood Glucose Urine WBC (Auto) 12/15/19 12/15/19 12/15/19 05:53 11:50 17:26 WBC RBC Hgb Hct MCHC RDW MCV MCH Lymph % (Auto) Wilcox % (Auto) Wilcox # Eos # Lymph # (Auto) Wilcox # (Auto) Eos # (Auto) Seg Neutrophils % Seg Neuts % (Manual) Baso # (Auto) Lymphocytes % (Manual) Monocytes % (Manual) Eosinophils % (Manual) Basophils % (Manual) Seg Neutrophils # Seg Neutrophils # Man Lymphocytes # (Manual) Monocytes # (Manual) Eosinophils # (Manual) Nucleated RBC % Basophils # (Manual) PT INR APTT Heparin Anti-Xa Level ABG pH POC ABG pO2 ABG pO2 ABG HCO3 ABG O2 Saturation ABG Base Excess POC ABG pCO2 ABG Hemoglobin ABG Oxyhemoglobin ABG Glucose Oxyhemoglobin Sodium Potassium Chloride Carbon Dioxide BUN Creatinine Glucose POC Glucose 119 H 132 H 128 H Lactic Acid Calcium Phosphorus Magnesium AST ALT Lactate Dehydrogenase CK-MB (CK-2) C-Reactive Protein NT-Pro-B Natriuret Pep Total Protein Albumin Arterial Blood Glucose Urine WBC (Auto) 12/15/19 12/16/19 12/16/19 23:11 05:30 05:46 WBC RBC Hgb 8.8 L Hct 27.9 L MCHC RDW MCV MCH Lymph % (Auto) Wilcox % (Auto) Wilcox # Eos # Lymph # (Auto) [place] # (Auto) Eos # (Auto) Seg Neutrophils % Seg Neuts % (Manual) Baso # (Auto) Lymphocytes % (Manual) Monocytes % (Manual) Eosinophils % (Manual) Basophils % (Manual) Seg Neutrophils # Seg Neutrophils # Man Lymphocytes # (Manual) Monocytes # (Manual) Eosinophils # (Manual) Nucleated RBC % Basophils # (Manual) PT INR APTT Heparin Anti-Xa Level ABG pH POC ABG pO2 ABG pO2 ABG HCO3 ABG O2 Saturation ABG Base Excess POC ABG pCO2 ABG Hemoglobin ABG Oxyhemoglobin ABG Glucose Oxyhemoglobin Sodium Potassium Chloride Carbon Dioxide BUN Creatinine Glucose POC Glucose 150 H 134 H Lactic Acid Calcium Phosphorus Magnesium AST ALT Lactate Dehydrogenase CK-MB (CK-2) C-Reactive Protein NT-Pro-B Natriuret Pep Total Protein Albumin Arterial Blood Glucose Urine WBC (Auto) 12/16/19 12/16/19 12/16/19 05:46 05:46 11:44 WBC RBC Hgb Hct MCHC RDW MCV MCH Lymph % (Auto) Wilcox % (Auto) Wilcox # Eos # Lymph # (Auto) Wilcox # (Auto) Eos # (Auto) Seg Neutrophils % Seg Neuts % (Manual) Baso # (Auto) Lymphocytes % (Manual) Monocytes % (Manual) Eosinophils % (Manual) Basophils % (Manual) Seg Neutrophils # Seg Neutrophils # Man Lymphocytes # (Manual) Monocytes # (Manual) Eosinophils # (Manual) Nucleated RBC % Basophils # (Manual) PT INR APTT Heparin Anti-Xa Level 0.20 L ABG pH POC ABG pO2 ABG pO2 ABG HCO3 ABG O2 Saturation ABG Base Excess POC ABG pCO2 ABG Hemoglobin ABG Oxyhemoglobin ABG Glucose Oxyhemoglobin Sodium Potassium Chloride Carbon Dioxide 31 H BUN Creatinine 0.5 L Glucose 147 H POC Glucose 164 H Lactic Acid Calcium Phosphorus Magnesium AST ALT Lactate Dehydrogenase CK-MB (CK-2) C-Reactive Protein NT-Pro-B Natriuret Pep Total Protein Albumin Arterial Blood Glucose Urine WBC (Auto) 12/16/19 12/16/19 12/17/19 17:17 23:49 05:30 WBC 13.9 H RBC 3.27 L Hgb 9.4 L Hct 29.2 L MCHC RDW 16.0 H MCV MCH Lymph % (Auto) Wilcox % (Auto) 8.8 H Wilcox # Eos # Lymph # (Auto) Wilcox # (Auto) 1.2 H Eos # (Auto) 0.5 H Seg Neutrophils % 70.5 H Seg Neuts % (Manual) Baso # (Auto) 0.2 H Lymphocytes % (Manual) Monocytes % (Manual) Eosinophils % (Manual) Basophils % (Manual) Seg Neutrophils # 9.8 H Seg Neutrophils # Man Lymphocytes # (Manual) Monocytes # (Manual) Eosinophils # (Manual) Nucleated RBC % Basophils # (Manual) PT INR APTT Heparin Anti-Xa Level ABG pH POC ABG pO2 ABG pO2 ABG HCO3 ABG O2 Saturation ABG Base Excess POC ABG pCO2 ABG Hemoglobin ABG Oxyhemoglobin ABG Glucose Oxyhemoglobin Sodium Potassium Chloride Carbon Dioxide BUN Creatinine Glucose POC Glucose 162 H 144 H Lactic Acid Calcium Phosphorus Magnesium AST ALT Lactate Dehydrogenase CK-MB (CK-2) C-Reactive Protein NT-Pro-B Natriuret Pep Total Protein Albumin Arterial Blood Glucose Urine WBC (Auto) 12/17/19 12/17/19 12/17/19 05:30 06:06 11:50 WBC RBC Hgb Hct MCHC RDW MCV MCH Lymph % (Auto) [place] % (Auto) Wilcox # Eos # Lymph # (Auto) Wilcox # (Auto) Eos # (Auto) Seg Neutrophils % Seg Neuts % (Manual) Baso # (Auto) Lymphocytes % (Manual) Monocytes % (Manual) Eosinophils % (Manual) Basophils % (Manual) Seg Neutrophils # Seg Neutrophils # Man Lymphocytes # (Manual) Monocytes # (Manual) Eosinophils # (Manual) Nucleated RBC % Basophils # (Manual) PT INR APTT Heparin Anti-Xa Level ABG pH POC ABG pO2 ABG pO2 ABG HCO3 ABG O2 Saturation ABG Base Excess POC ABG pCO2 ABG Hemoglobin ABG Oxyhemoglobin ABG Glucose Oxyhemoglobin Sodium Potassium Chloride 97.4 L Carbon Dioxide 32 H BUN Creatinine 0.5 L Glucose 135 H POC Glucose 151 H 140 H Lactic Acid Calcium Phosphorus Magnesium AST ALT Lactate Dehydrogenase CK-MB (CK-2) C-Reactive Protein NT-Pro-B Natriuret Pep Total Protein Albumin Arterial Blood Glucose Urine WBC (Auto) 12/17/19 12/17/19 12/18/19 17:50 23:46 05:17 WBC RBC Hgb 8.8 L Hct 28.0 L MCHC RDW MCV MCH Lymph % (Auto) [place] % (Auto) Wilcox # Eos # Lymph # (Auto) [place] # (Auto) Eos # (Auto) Seg Neutrophils % Seg Neuts % (Manual) Baso # (Auto) Lymphocytes % (Manual) Monocytes % (Manual) Eosinophils % (Manual) Basophils % (Manual) Seg Neutrophils # Seg Neutrophils # Man Lymphocytes # (Manual) Monocytes # (Manual) Eosinophils # (Manual) Nucleated RBC % Basophils # (Manual) PT INR APTT Heparin Anti-Xa Level ABG pH POC ABG pO2 ABG pO2 ABG HCO3 ABG O2 Saturation ABG Base Excess POC ABG pCO2 ABG Hemoglobin ABG Oxyhemoglobin ABG Glucose Oxyhemoglobin Sodium Potassium Chloride Carbon Dioxide BUN Creatinine Glucose POC Glucose 158 H 150 H Lactic Acid Calcium Phosphorus Magnesium AST ALT Lactate Dehydrogenase CK-MB (CK-2) C-Reactive Protein NT-Pro-B Natriuret Pep Total Protein Albumin Arterial Blood Glucose Urine WBC (Auto) 12/18/19 12/18/19 12/18/19 05:17 05:49 11:12 WBC RBC Hgb Hct MCHC RDW MCV MCH Lymph % (Auto) [place] % (Auto) Wilcox # Eos # Lymph # (Auto) [place] # (Auto) Eos # (Auto) Seg Neutrophils % Seg Neuts % (Manual) Baso # (Auto) Lymphocytes % (Manual) Monocytes % (Manual) Eosinophils % (Manual) Basophils % (Manual) Seg Neutrophils # Seg Neutrophils # Man Lymphocytes # (Manual) Monocytes # (Manual) Eosinophils # (Manual) Nucleated RBC % Basophils # (Manual) PT INR APTT Heparin Anti-Xa Level 0.16 L ABG pH POC ABG pO2 ABG pO2 ABG HCO3 ABG O2 Saturation ABG Base Excess POC ABG pCO2 ABG Hemoglobin ABG Oxyhemoglobin ABG Glucose Oxyhemoglobin Sodium Potassium Chloride Carbon Dioxide BUN Creatinine Glucose POC Glucose 127 H 191 H Lactic Acid Calcium Phosphorus Magnesium AST ALT Lactate Dehydrogenase CK-MB (CK-2) C-Reactive Protein NT-Pro-B Natriuret Pep Total Protein Albumin Arterial Blood Glucose Urine WBC (Auto) 12/18/19 12/18/19 12/19/19 17:03 20:16 00:08 WBC RBC Hgb Hct MCHC RDW MCV MCH Lymph % (Auto) [place] % (Auto) Wilcox # Eos # Lymph # (Auto) [place] # (Auto) Eos # (Auto) Seg Neutrophils % Seg Neuts % (Manual) Baso # (Auto) Lymphocytes % (Manual) Monocytes % (Manual) Eosinophils % (Manual) Basophils % (Manual) Seg Neutrophils # Seg Neutrophils # Man Lymphocytes # (Manual) Monocytes # (Manual) Eosinophils # (Manual) Nucleated RBC % Basophils # (Manual) PT INR APTT Heparin Anti-Xa Level ABG pH POC ABG pO2 ABG pO2 ABG HCO3 ABG O2 Saturation ABG Base Excess POC ABG pCO2 ABG Hemoglobin ABG Oxyhemoglobin ABG Glucose Oxyhemoglobin Sodium Potassium Chloride Carbon Dioxide BUN Creatinine Glucose POC Glucose 133 H 128 H 129 H Lactic Acid Calcium Phosphorus Magnesium AST ALT Lactate Dehydrogenase CK-MB (CK-2) C-Reactive Protein NT-Pro-B Natriuret Pep Total Protein Albumin Arterial Blood Glucose Urine WBC (Auto) 12/19/19 12/19/19 12/19/19 04:45 04:45 05:35 WBC RBC Hgb Hct MCHC RDW MCV MCH Lymph % (Auto) [place] % (Auto) Wilcox # Eos # Lymph # (Auto) [place] # (Auto) Eos # (Auto) Seg Neutrophils % Seg Neuts % (Manual) Baso # (Auto) Lymphocytes % (Manual) Monocytes % (Manual) Eosinophils % (Manual) Basophils % (Manual) Seg Neutrophils # Seg Neutrophils # Man Lymphocytes # (Manual) Monocytes # (Manual) Eosinophils # (Manual) Nucleated RBC % Basophils # (Manual) PT INR APTT Heparin Anti-Xa Level 0.17 L ABG pH POC ABG pO2 ABG pO2 ABG HCO3 ABG O2 Saturation ABG Base Excess POC ABG pCO2 ABG Hemoglobin ABG Oxyhemoglobin ABG Glucose Oxyhemoglobin Sodium Potassium Chloride Carbon Dioxide BUN Creatinine Glucose POC Glucose 120 H Lactic Acid Calcium Phosphorus Magnesium AST ALT Lactate Dehydrogenase 228 H CK-MB (CK-2) C-Reactive Protein NT-Pro-B Natriuret Pep Total Protein Albumin Arterial Blood Glucose Urine WBC (Auto) 12/19/19 12/19/19 12/19/19 09:20 11:32 11:32 WBC 14.6 H RBC 3.08 L Hgb 9.0 L Hct 26.8 L MCHC RDW 15.9 H MCV MCH Lymph % (Auto) [place] % (Auto) Wilcox # Eos # Lymph # (Auto) [place] # (Auto) Eos # (Auto) Seg Neutrophils % Seg Neuts % (Manual) 82.0 H Baso # (Auto) Lymphocytes % (Manual) 10.0 L Monocytes % (Manual) Eosinophils % (Manual) Basophils % (Manual) Seg Neutrophils # Seg Neutrophils # Man 12.0 H Lymphocytes # (Manual) Monocytes # (Manual) 0.9 H Eosinophils # (Manual) Nucleated RBC % 1.0 H Basophils # (Manual) PT INR APTT Heparin Anti-Xa Level ABG pH 7.451 H POC ABG pO2 ABG pO2 62.6 L ABG HCO3 33.2 H ABG O2 Saturation 93.8 L ABG Base Excess 8.3 H POC ABG pCO2 ABG Hemoglobin 8.3 L ABG Oxyhemoglobin ABG Glucose Oxyhemoglobin 91.9 L Sodium Potassium Chloride 95.0 L Carbon Dioxide 33 H BUN 22 H Creatinine 0.6 L Glucose 150 H POC Glucose Lactic Acid Calcium Phosphorus Magnesium AST ALT Lactate Dehydrogenase CK-MB (CK-2) C-Reactive Protein NT-Pro-B Natriuret Pep Total Protein 6.2 L Albumin 2.4 L Arterial Blood Glucose Urine WBC (Auto) 12/19/19 12/19/19 12/20/19 11:56 18:17 00:09 WBC RBC Hgb Hct MCHC RDW MCV MCH Lymph % (Auto) [place] % (Auto) Wilcox # Eos # Lymph # (Auto) [place] # (Auto) Eos # (Auto) Seg Neutrophils % Seg Neuts % (Manual) Baso # (Auto) Lymphocytes % (Manual) Monocytes % (Manual) Eosinophils % (Manual) Basophils % (Manual) Seg Neutrophils # Seg Neutrophils # Man Lymphocytes # (Manual) Monocytes # (Manual) Eosinophils # (Manual) Nucleated RBC % Basophils # (Manual) PT INR APTT Heparin Anti-Xa Level ABG pH POC ABG pO2 ABG pO2 ABG HCO3 ABG O2 Saturation ABG Base Excess POC ABG pCO2 ABG Hemoglobin ABG Oxyhemoglobin ABG Glucose Oxyhemoglobin Sodium Potassium Chloride Carbon Dioxide BUN Creatinine Glucose POC Glucose 156 H 156 H 155 H Lactic Acid Calcium Phosphorus Magnesium AST ALT Lactate Dehydrogenase CK-MB (CK-2) C-Reactive Protein NT-Pro-B Natriuret Pep Total Protein Albumin Arterial Blood Glucose Urine WBC (Auto) 12/20/19 12/20/19 12/20/19 05:26 06:02 18:17 WBC RBC Hgb Hct MCHC RDW MCV MCH Lymph % (Auto) [place] % (Auto) Wilcox # Eos # Lymph # (Auto) [place] # (Auto) Eos # (Auto) Seg Neutrophils % Seg Neuts % (Manual) Baso # (Auto) Lymphocytes % (Manual) Monocytes % (Manual) Eosinophils % (Manual) Basophils % (Manual) Seg Neutrophils # Seg Neutrophils # Man Lymphocytes # (Manual) Monocytes # (Manual) Eosinophils # (Manual) Nucleated RBC % Basophils # (Manual) PT INR APTT Heparin Anti-Xa Level 0.19 L ABG pH POC ABG pO2 ABG pO2 ABG HCO3 ABG O2 Saturation ABG Base Excess POC ABG pCO2 ABG Hemoglobin ABG Oxyhemoglobin ABG Glucose Oxyhemoglobin Sodium Potassium Chloride Carbon Dioxide BUN Creatinine Glucose POC Glucose 137 H 128 H Lactic Acid Calcium Phosphorus Magnesium AST ALT Lactate Dehydrogenase CK-MB (CK-2) C-Reactive Protein NT-Pro-B Natriuret Pep Total Protein Albumin Arterial Blood Glucose Urine WBC (Auto) 12/20/19 12/21/19 12/21/19 23:34 05:31 05:31 WBC 12.7 H RBC 3.09 L Hgb 8.9 L Hct 27.4 L MCHC RDW 15.8 H MCV MCH Lymph % (Auto) 12.1 L [place] % (Auto) 7.8 H Wilcox # Eos # Lymph # (Auto) [place] # (Auto) 1.0 H Eos # (Auto) Seg Neutrophils % 77.1 H Seg Neuts % (Manual) Baso # (Auto) Lymphocytes % (Manual) Monocytes % (Manual) Eosinophils % (Manual) Basophils % (Manual) Seg Neutrophils # 9.8 H Seg Neutrophils # Man Lymphocytes # (Manual) Monocytes # (Manual) Eosinophils # (Manual) Nucleated RBC % Basophils # (Manual) PT INR APTT Heparin Anti-Xa Level ABG pH POC ABG pO2 ABG pO2 ABG HCO3 ABG O2 Saturation ABG Base Excess POC ABG pCO2 ABG Hemoglobin ABG Oxyhemoglobin ABG Glucose Oxyhemoglobin Sodium Potassium Chloride 96.9 L Carbon Dioxide 37 H BUN 27 H Creatinine 0.7 L Glucose 140 H POC Glucose 145 H Lactic Acid Calcium Phosphorus Magnesium AST ALT Lactate Dehydrogenase CK-MB (CK-2) C-Reactive Protein NT-Pro-B Natriuret Pep Total Protein Albumin Arterial Blood Glucose Urine WBC (Auto) 12/21/19 12/21/19 12/21/19 05:38 10:13 11:51 WBC RBC Hgb Hct MCHC RDW MCV MCH Lymph % (Auto) [place] % (Auto) Wilcox # Eos # Lymph # (Auto) [place] # (Auto) Eos # (Auto) Seg Neutrophils % Seg Neuts % (Manual) Baso # (Auto) Lymphocytes % (Manual) Monocytes % (Manual) Eosinophils % (Manual) Basophils % (Manual) Seg Neutrophils # Seg Neutrophils # Man Lymphocytes # (Manual) Monocytes # (Manual) Eosinophils # (Manual) Nucleated RBC % Basophils # (Manual) PT INR APTT 23.9 L Heparin Anti-Xa Level < 0.10 L ABG pH POC ABG pO2 ABG pO2 ABG HCO3 ABG O2 Saturation ABG Base Excess POC ABG pCO2 ABG Hemoglobin ABG Oxyhemoglobin ABG Glucose Oxyhemoglobin Sodium Potassium Chloride Carbon Dioxide BUN Creatinine Glucose POC Glucose 151 H 145 H Lactic Acid Calcium Phosphorus Magnesium AST ALT Lactate Dehydrogenase CK-MB (CK-2) C-Reactive Protein NT-Pro-B Natriuret Pep Total Protein Albumin Arterial Blood Glucose Urine WBC (Auto) 12/21/19 12/22/19 12/22/19 17:16 00:01 01:33 WBC RBC Hgb Hct MCHC RDW MCV MCH Lymph % (Auto) [place] % (Auto) Wilcox # Eos # Lymph # (Auto) [place] # (Auto) Eos # (Auto) Seg Neutrophils % Seg Neuts % (Manual) Baso # (Auto) Lymphocytes % (Manual) Monocytes % (Manual) Eosinophils % (Manual) Basophils % (Manual) Seg Neutrophils # Seg Neutrophils # Man Lymphocytes # (Manual) Monocytes # (Manual) Eosinophils # (Manual) Nucleated RBC % Basophils # (Manual) PT INR APTT Heparin Anti-Xa Level 0.10 L ABG pH POC ABG pO2 ABG pO2 ABG HCO3 ABG O2 Saturation ABG Base Excess POC ABG pCO2 ABG Hemoglobin ABG Oxyhemoglobin ABG Glucose Oxyhemoglobin Sodium Potassium Chloride Carbon Dioxide BUN Creatinine Glucose POC Glucose 167 H 179 H Lactic Acid Calcium Phosphorus Magnesium AST ALT Lactate Dehydrogenase CK-MB (CK-2) C-Reactive Protein NT-Pro-B Natriuret Pep Total Protein Albumin Arterial Blood Glucose Urine WBC (Auto) 12/22/19 12/22/19 12/22/19 03:22 05:10 05:10 WBC 13.8 H RBC 3.20 L Hgb 8.9 L Hct 28.1 L MCHC RDW 15.9 H MCV MCH Lymph % (Auto) [place] % (Auto) Wilcox # Eos # Lymph # (Auto) [place] # (Auto) Eos # (Auto) Seg Neutrophils % Seg Neuts % (Manual) Baso # (Auto) Lymphocytes % (Manual) Monocytes % (Manual) Eosinophils % (Manual) Basophils % (Manual) Seg Neutrophils # Seg Neutrophils # Man Lymphocytes # (Manual) Monocytes # (Manual) Eosinophils # (Manual) Nucleated RBC % Basophils # (Manual) PT INR APTT Heparin Anti-Xa Level ABG pH POC ABG pO2 52.3 L ABG pO2 ABG HCO3 ABG O2 Saturation ABG Base Excess POC ABG pCO2 52.9 H ABG Hemoglobin 10.7 L ABG Oxyhemoglobin 84 L ABG Glucose Oxyhemoglobin Sodium Potassium Chloride 96.6 L Carbon Dioxide BUN 25 H Creatinine 0.7 L Glucose 129 H POC Glucose Lactic Acid Calcium Phosphorus Magnesium AST ALT Lactate Dehydrogenase CK-MB (CK-2) C-Reactive Protein NT-Pro-B Natriuret Pep Total Protein Albumin Arterial Blood Glucose Urine WBC (Auto) 12/22/19 12/22/19 12/22/19 05:18 12:32 12:43 WBC RBC Hgb Hct MCHC RDW MCV MCH Lymph % (Auto) [place] % (Auto) Wilcox # Eos # Lymph # (Auto) Wilcox # (Auto) Eos # (Auto) Seg Neutrophils % Seg Neuts % (Manual) Baso # (Auto) Lymphocytes % (Manual) Monocytes % (Manual) Eosinophils % (Manual) Basophils % (Manual) Seg Neutrophils # Seg Neutrophils # Man Lymphocytes # (Manual) Monocytes # (Manual) Eosinophils # (Manual) Nucleated RBC % Basophils # (Manual) PT INR APTT Heparin Anti-Xa Level 0.18 L ABG pH POC ABG pO2 ABG pO2 ABG HCO3 ABG O2 Saturation ABG Base Excess POC ABG pCO2 ABG Hemoglobin ABG Oxyhemoglobin ABG Glucose Oxyhemoglobin Sodium Potassium Chloride Carbon Dioxide BUN Creatinine Glucose POC Glucose 131 H 208 H Lactic Acid Calcium Phosphorus Magnesium AST ALT Lactate Dehydrogenase CK-MB (CK-2) C-Reactive Protein NT-Pro-B Natriuret Pep Total Protein Albumin Arterial Blood Glucose Urine WBC (Auto) 12/22/19 12/22/19 12/23/19 17:44 23:20 03:51 WBC 15.2 H RBC 3.43 L Hgb 9.6 L Hct 30.3 L MCHC RDW 15.9 H MCV MCH Lymph % (Auto) [place] % (Auto) Wilcox # Eos # Lymph # (Auto) [place] # (Auto) Eos # (Auto) Seg Neutrophils % Seg Neuts % (Manual) Baso # (Auto) Lymphocytes % (Manual) Monocytes % (Manual) Eosinophils % (Manual) Basophils % (Manual) Seg Neutrophils # Seg Neutrophils # Man Lymphocytes # (Manual) Monocytes # (Manual) Eosinophils # (Manual) Nucleated RBC % Basophils # (Manual) PT INR APTT Heparin Anti-Xa Level ABG pH POC ABG pO2 ABG pO2 ABG HCO3 ABG O2 Saturation ABG Base Excess POC ABG pCO2 ABG Hemoglobin ABG Oxyhemoglobin ABG Glucose Oxyhemoglobin Sodium Potassium Chloride Carbon Dioxide BUN Creatinine Glucose POC Glucose 209 H 119 H Lactic Acid Calcium Phosphorus Magnesium AST ALT Lactate Dehydrogenase CK-MB (CK-2) C-Reactive Protein NT-Pro-B Natriuret Pep Total Protein Albumin Arterial Blood Glucose Urine WBC (Auto) 12/23/19 12/23/19 12/23/19 03:51 05:31 12:09 WBC RBC Hgb Hct MCHC RDW MCV MCH Lymph % (Auto) [place] % (Auto) Wilcox # Eos # Lymph # (Auto) Wilcox # (Auto) Eos # (Auto) Seg Neutrophils % Seg Neuts % (Manual) Baso # (Auto) Lymphocytes % (Manual) Monocytes % (Manual) Eosinophils % (Manual) Basophils % (Manual) Seg Neutrophils # Seg Neutrophils # Man Lymphocytes # (Manual) Monocytes # (Manual) Eosinophils # (Manual) Nucleated RBC % Basophils # (Manual) PT INR APTT Heparin Anti-Xa Level ABG pH POC ABG pO2 ABG pO2 ABG HCO3 ABG O2 Saturation ABG Base Excess POC ABG pCO2 ABG Hemoglobin ABG Oxyhemoglobin ABG Glucose Oxyhemoglobin Sodium Potassium Chloride 97.2 L Carbon Dioxide 31 H BUN 23 H Creatinine 0.6 L Glucose 153 H POC Glucose 149 H 144 H Lactic Acid Calcium Phosphorus Magnesium AST ALT Lactate Dehydrogenase CK-MB (CK-2) C-Reactive Protein NT-Pro-B Natriuret Pep Total Protein Albumin Arterial Blood Glucose Urine WBC (Auto) 12/23/19 12/23/19 12/23/19 15:30 17:49 23:31 WBC RBC Hgb Hct MCHC RDW MCV MCH Lymph % (Auto) [place] % (Auto) Wilcox # Eos # Lymph # (Auto) [place] # (Auto) Eos # (Auto) Seg Neutrophils % Seg Neuts % (Manual) Baso # (Auto) Lymphocytes % (Manual) Monocytes % (Manual) Eosinophils % (Manual) Basophils % (Manual) Seg Neutrophils # Seg Neutrophils # Man Lymphocytes # (Manual) Monocytes # (Manual) Eosinophils # (Manual) Nucleated RBC % Basophils # (Manual) PT INR APTT Heparin Anti-Xa Level 0.21 L ABG pH POC ABG pO2 ABG pO2 ABG HCO3 ABG O2 Saturation ABG Base Excess POC ABG pCO2 ABG Hemoglobin ABG Oxyhemoglobin ABG Glucose Oxyhemoglobin Sodium Potassium Chloride Carbon Dioxide BUN Creatinine Glucose POC Glucose 192 H 151 H Lactic Acid Calcium Phosphorus Magnesium AST ALT Lactate Dehydrogenase CK-MB (CK-2) C-Reactive Protein NT-Pro-B Natriuret Pep Total Protein Albumin Arterial Blood Glucose Urine WBC (Auto) 12/24/19 12/24/19 12/24/19 05:34 12:13 16:50 WBC RBC Hgb Hct MCHC RDW MCV MCH Lymph % (Auto) [place] % (Auto) Wilcox # Eos # Lymph # (Auto) [place] # (Auto) Eos # (Auto) Seg Neutrophils % Seg Neuts % (Manual) Baso # (Auto) Lymphocytes % (Manual) Monocytes % (Manual) Eosinophils % (Manual) Basophils % (Manual) Seg Neutrophils # Seg Neutrophils # Man Lymphocytes # (Manual) Monocytes # (Manual) Eosinophils # (Manual) Nucleated RBC % Basophils # (Manual) PT INR APTT Heparin Anti-Xa Level 0.16 L ABG pH POC ABG pO2 ABG pO2 ABG HCO3 ABG O2 Saturation ABG Base Excess POC ABG pCO2 ABG Hemoglobin ABG Oxyhemoglobin ABG Glucose Oxyhemoglobin Sodium Potassium Chloride Carbon Dioxide BUN Creatinine Glucose POC Glucose 145 H 124 H Lactic Acid Calcium Phosphorus Magnesium AST ALT Lactate Dehydrogenase CK-MB (CK-2) C-Reactive Protein NT-Pro-B Natriuret Pep Total Protein Albumin Arterial Blood Glucose Urine WBC (Auto) 12/24/19 12/25/19 12/25/19 17:53 00:14 04:18 WBC 12.9 H RBC 3.30 L Hgb 9.1 L Hct 28.8 L MCHC RDW 16.4 H MCV MCH Lymph % (Auto) [place] % (Auto) 7.8 H [place] # Eos # Lymph # (Auto) [place] # (Auto) 1.0 H Eos # (Auto) Seg Neutrophils % 75.5 H Seg Neuts % (Manual) Baso # (Auto) Lymphocytes % (Manual) Monocytes % (Manual) Eosinophils % (Manual) Basophils % (Manual) Seg Neutrophils # 9.7 H Seg Neutrophils # Man Lymphocytes # (Manual) Monocytes # (Manual) Eosinophils # (Manual) Nucleated RBC % Basophils # (Manual) PT INR APTT Heparin Anti-Xa Level ABG pH POC ABG pO2 ABG pO2 ABG HCO3 ABG O2 Saturation ABG Base Excess POC ABG pCO2 ABG Hemoglobin ABG Oxyhemoglobin ABG Glucose Oxyhemoglobin Sodium Potassium Chloride Carbon Dioxide BUN Creatinine Glucose POC Glucose 164 H 148 H Lactic Acid Calcium Phosphorus Magnesium AST ALT Lactate Dehydrogenase CK-MB (CK-2) C-Reactive Protein NT-Pro-B Natriuret Pep Total Protein Albumin Arterial Blood Glucose Urine WBC (Auto) 12/25/19 12/25/19 12/25/19 04:18 05:38 11:44 WBC RBC Hgb Hct MCHC RDW MCV MCH Lymph % (Auto) [place] % (Auto) Wilcox # Eos # Lymph # (Auto) [place] # (Auto) Eos # (Auto) Seg Neutrophils % Seg Neuts % (Manual) Baso # (Auto) Lymphocytes % (Manual) Monocytes % (Manual) Eosinophils % (Manual) Basophils % (Manual) Seg Neutrophils # Seg Neutrophils # Man Lymphocytes # (Manual) Monocytes # (Manual) Eosinophils # (Manual) Nucleated RBC % Basophils # (Manual) PT INR APTT Heparin Anti-Xa Level ABG pH POC ABG pO2 ABG pO2 ABG HCO3 ABG O2 Saturation ABG Base Excess POC ABG pCO2 ABG Hemoglobin ABG Oxyhemoglobin ABG Glucose Oxyhemoglobin Sodium Potassium Chloride Carbon Dioxide 33 H BUN 27 H Creatinine 0.6 L Glucose 132 H POC Glucose 152 H 166 H Lactic Acid Calcium Phosphorus Magnesium AST ALT Lactate Dehydrogenase CK-MB (CK-2) C-Reactive Protein NT-Pro-B Natriuret Pep Total Protein Albumin Arterial Blood Glucose Urine WBC (Auto) 12/25/19 12/26/19 12/26/19 18:29 00:17 00:18 WBC RBC Hgb Hct MCHC RDW MCV MCH Lymph % (Auto) [place] % (Auto) Wilcox # Eos # Lymph # (Auto) [place] # (Auto) Eos # (Auto) Seg Neutrophils % Seg Neuts % (Manual) Baso # (Auto) Lymphocytes % (Manual) Monocytes % (Manual) Eosinophils % (Manual) Basophils % (Manual) Seg Neutrophils # Seg Neutrophils # Man Lymphocytes # (Manual) Monocytes # (Manual) Eosinophils # (Manual) Nucleated RBC % Basophils # (Manual) PT INR APTT Heparin Anti-Xa Level ABG pH POC ABG pO2 ABG pO2 ABG HCO3 ABG O2 Saturation ABG Base Excess POC ABG pCO2 ABG Hemoglobin ABG Oxyhemoglobin ABG Glucose Oxyhemoglobin Sodium Potassium Chloride 97.8 L Carbon Dioxide BUN 25 H Creatinine 0.6 L Glucose 140 H POC Glucose 194 H 151 H Lactic Acid Calcium Phosphorus Magnesium AST ALT Lactate Dehydrogenase CK-MB (CK-2) C-Reactive Protein NT-Pro-B Natriuret Pep Total Protein Albumin Arterial Blood Glucose Urine WBC (Auto) 12/26/19 12/26/19 12/26/19 05:36 11:41 17:50 WBC RBC Hgb Hct MCHC RDW MCV MCH Lymph % (Auto) [place] % (Auto) Wilcox # Eos # Lymph # (Auto) [place] # (Auto) Eos # (Auto) Seg Neutrophils % Seg Neuts % (Manual) Baso # (Auto) Lymphocytes % (Manual) Monocytes % (Manual) Eosinophils % (Manual) Basophils % (Manual) Seg Neutrophils # Seg Neutrophils # Man Lymphocytes # (Manual) Monocytes # (Manual) Eosinophils # (Manual) Nucleated RBC % Basophils # (Manual) PT INR APTT Heparin Anti-Xa Level ABG pH POC ABG pO2 ABG pO2 ABG HCO3 ABG O2 Saturation ABG Base Excess POC ABG pCO2 ABG Hemoglobin ABG Oxyhemoglobin ABG Glucose Oxyhemoglobin Sodium Potassium Chloride Carbon Dioxide BUN Creatinine Glucose POC Glucose 156 H 148 H 139 H Lactic Acid Calcium Phosphorus Magnesium AST ALT Lactate Dehydrogenase CK-MB (CK-2) C-Reactive Protein NT-Pro-B Natriuret Pep Total Protein Albumin Arterial Blood Glucose Urine WBC (Auto) 12/26/19 12/27/19 12/27/19 23:19 05:34 12:02 WBC RBC Hgb Hct MCHC RDW MCV MCH Lymph % (Auto) [place] % (Auto) Wilcox # Eos # Lymph # (Auto) [place] # (Auto) Eos # (Auto) Seg Neutrophils % Seg Neuts % (Manual) Baso # (Auto) Lymphocytes % (Manual) Monocytes % (Manual) Eosinophils % (Manual) Basophils % (Manual) Seg Neutrophils # Seg Neutrophils # Man Lymphocytes # (Manual) Monocytes # (Manual) Eosinophils # (Manual) Nucleated RBC % Basophils # (Manual) PT INR APTT Heparin Anti-Xa Level ABG pH POC ABG pO2 ABG pO2 ABG HCO3 ABG O2 Saturation ABG Base Excess POC ABG pCO2 ABG Hemoglobin ABG Oxyhemoglobin ABG Glucose Oxyhemoglobin Sodium Potassium Chloride Carbon Dioxide BUN Creatinine Glucose POC Glucose 161 H 145 H 157 H Lactic Acid Calcium Phosphorus Magnesium AST ALT Lactate Dehydrogenase CK-MB (CK-2) C-Reactive Protein NT-Pro-B Natriuret Pep Total Protein Albumin Arterial Blood Glucose Urine WBC (Auto) 12/27/19 12/27/19 12/27/19 17:35 20:11 23:00 WBC RBC Hgb Hct MCHC RDW MCV MCH Lymph % (Auto) [place] % (Auto) Wilcox # Eos # Lymph # (Auto) [place] # (Auto) Eos # (Auto) Seg Neutrophils % Seg Neuts % (Manual) Baso # (Auto) Lymphocytes % (Manual) Monocytes % (Manual) Eosinophils % (Manual) Basophils % (Manual) Seg Neutrophils # Seg Neutrophils # Man Lymphocytes # (Manual) Monocytes # (Manual) Eosinophils # (Manual) Nucleated RBC % Basophils # (Manual) PT INR APTT Heparin Anti-Xa Level 0.19 L ABG pH POC ABG pO2 ABG pO2 ABG HCO3 ABG O2 Saturation ABG Base Excess POC ABG pCO2 ABG Hemoglobin ABG Oxyhemoglobin ABG Glucose Oxyhemoglobin Sodium Potassium Chloride Carbon Dioxide BUN Creatinine Glucose POC Glucose 158 H 155 H Lactic Acid Calcium Phosphorus Magnesium AST ALT Lactate Dehydrogenase CK-MB (CK-2) C-Reactive Protein NT-Pro-B Natriuret Pep Total Protein Albumin Arterial Blood Glucose Urine WBC (Auto) 12/27/19 12/28/19 12/28/19 23:45 02:41 02:41 WBC 13.0 H RBC 3.48 L Hgb 9.5 L Hct 30.6 L MCHC 31 L RDW 16.6 H MCV MCH 27 L Lymph % (Auto) 13.0 L [place] % (Auto) 8.0 H Wilcox # Eos # Lymph # (Auto) [place] # (Auto) 1.0 H Eos # (Auto) Seg Neutrophils % 76.3 H Seg Neuts % (Manual) Baso # (Auto) Lymphocytes % (Manual) Monocytes % (Manual) Eosinophils % (Manual) Basophils % (Manual) Seg Neutrophils # 9.9 H Seg Neutrophils # Man Lymphocytes # (Manual) Monocytes # (Manual) Eosinophils # (Manual) Nucleated RBC % Basophils # (Manual) PT INR APTT Heparin Anti-Xa Level ABG pH POC ABG pO2 ABG pO2 ABG HCO3 ABG O2 Saturation ABG Base Excess POC ABG pCO2 ABG Hemoglobin ABG Oxyhemoglobin ABG Glucose Oxyhemoglobin Sodium Potassium Chloride Carbon Dioxide BUN 22 H Creatinine 0.6 L Glucose 101 H POC Glucose 130 H Lactic Acid Calcium Phosphorus Magnesium AST ALT Lactate Dehydrogenase CK-MB (CK-2) C-Reactive Protein NT-Pro-B Natriuret Pep Total Protein Albumin Arterial Blood Glucose Urine WBC (Auto) 12/28/19 12/28/19 12/28/19 06:00 12:34 18:13 WBC RBC Hgb Hct MCHC RDW MCV MCH Lymph % (Auto) Wilcox % (Auto) Wilcox # Eos # Lymph # (Auto) Wilcox # (Auto) Eos # (Auto) Seg Neutrophils % Seg Neuts % (Manual) Baso # (Auto) Lymphocytes % (Manual) Monocytes % (Manual) Eosinophils % (Manual) Basophils % (Manual) Seg Neutrophils # Seg Neutrophils # Man Lymphocytes # (Manual) Monocytes # (Manual) Eosinophils # (Manual) Nucleated RBC % Basophils # (Manual) PT INR APTT Heparin Anti-Xa Level ABG pH POC ABG pO2 ABG pO2 ABG HCO3 ABG O2 Saturation ABG Base Excess POC ABG pCO2 ABG Hemoglobin ABG Oxyhemoglobin ABG Glucose Oxyhemoglobin Sodium Potassium Chloride Carbon Dioxide BUN Creatinine Glucose POC Glucose 150 H 161 H 128 H Lactic Acid Calcium Phosphorus Magnesium AST ALT Lactate Dehydrogenase CK-MB (CK-2) C-Reactive Protein NT-Pro-B Natriuret Pep Total Protein Albumin Arterial Blood Glucose Urine WBC (Auto) 12/28/19 12/29/19 12/29/19 23:36 05:21 11:40 WBC RBC Hgb Hct MCHC RDW MCV MCH Lymph % (Auto) [place] % (Auto) Wilcox # Eos # Lymph # (Auto) [place] # (Auto) Eos # (Auto) Seg Neutrophils % Seg Neuts % (Manual) Baso # (Auto) Lymphocytes % (Manual) Monocytes % (Manual) Eosinophils % (Manual) Basophils % (Manual) Seg Neutrophils # Seg Neutrophils # Man Lymphocytes # (Manual) Monocytes # (Manual) Eosinophils # (Manual) Nucleated RBC % Basophils # (Manual) PT INR APTT Heparin Anti-Xa Level ABG pH POC ABG pO2 ABG pO2 ABG HCO3 ABG O2 Saturation ABG Base Excess POC ABG pCO2 ABG Hemoglobin ABG Oxyhemoglobin ABG Glucose Oxyhemoglobin Sodium Potassium Chloride Carbon Dioxide BUN Creatinine Glucose POC Glucose 137 H 136 H 166 H Lactic Acid Calcium Phosphorus Magnesium AST ALT Lactate Dehydrogenase CK-MB (CK-2) C-Reactive Protein NT-Pro-B Natriuret Pep Total Protein Albumin Arterial Blood Glucose Urine WBC (Auto) 12/29/19 12/29/19 12/29/19 17:23 19:21 23:38 WBC RBC Hgb Hct MCHC RDW MCV MCH Lymph % (Auto) [place] % (Auto) Wilcox # Eos # Lymph # (Auto) [place] # (Auto) Eos # (Auto) Seg Neutrophils % Seg Neuts % (Manual) Baso # (Auto) Lymphocytes % (Manual) Monocytes % (Manual) Eosinophils % (Manual) Basophils % (Manual) Seg Neutrophils # Seg Neutrophils # Man Lymphocytes # (Manual) Monocytes # (Manual) Eosinophils # (Manual) Nucleated RBC % Basophils # (Manual) PT INR APTT Heparin Anti-Xa Level 0.20 L ABG pH POC ABG pO2 ABG pO2 ABG HCO3 ABG O2 Saturation ABG Base Excess POC ABG pCO2 ABG Hemoglobin ABG Oxyhemoglobin ABG Glucose Oxyhemoglobin Sodium Potassium Chloride Carbon Dioxide BUN Creatinine Glucose POC Glucose 144 H 141 H Lactic Acid Calcium Phosphorus Magnesium AST ALT Lactate Dehydrogenase CK-MB (CK-2) C-Reactive Protein NT-Pro-B Natriuret Pep Total Protein Albumin Arterial Blood Glucose Urine WBC (Auto) 12/30/19 12/30/19 12/30/19 03:58 03:58 04:59 WBC RBC 3.54 L Hgb 9.8 L Hct 30.7 L MCHC RDW 16.8 H MCV MCH Lymph % (Auto) [place] % (Auto) Wilcox # Eos # Lymph # (Auto) [place] # (Auto) Eos # (Auto) Seg Neutrophils % Seg Neuts % (Manual) Baso # (Auto) Lymphocytes % (Manual) Monocytes % (Manual) Eosinophils % (Manual) Basophils % (Manual) Seg Neutrophils # Seg Neutrophils # Man Lymphocytes # (Manual) Monocytes # (Manual) Eosinophils # (Manual) Nucleated RBC % Basophils # (Manual) PT INR APTT Heparin Anti-Xa Level ABG pH POC ABG pO2 ABG pO2 ABG HCO3 29.8 H ABG O2 Saturation ABG Base Excess 4.8 H POC ABG pCO2 ABG Hemoglobin 11.2 L ABG Oxyhemoglobin ABG Glucose Oxyhemoglobin 93.8 L Sodium Potassium Chloride 97.8 L Carbon Dioxide BUN 26 H Creatinine Glucose 168 H POC Glucose Lactic Acid Calcium Phosphorus Magnesium AST ALT Lactate Dehydrogenase CK-MB (CK-2) C-Reactive Protein NT-Pro-B Natriuret Pep Total Protein Albumin Arterial Blood Glucose Urine WBC (Auto) 12/30/19 12/30/19 12/30/19 05:45 11:34 17:28 WBC RBC Hgb Hct MCHC RDW MCV MCH Lymph % (Auto) [place] % (Auto) [place] # Eos # Lymph # (Auto) [place] # (Auto) Eos # (Auto) Seg Neutrophils % Seg Neuts % (Manual) Baso # (Auto) Lymphocytes % (Manual) Monocytes % (Manual) Eosinophils % (Manual) Basophils % (Manual) Seg Neutrophils # Seg Neutrophils # Man Lymphocytes # (Manual) Monocytes # (Manual) Eosinophils # (Manual) Nucleated RBC % Basophils # (Manual) PT INR APTT Heparin Anti-Xa Level ABG pH POC ABG pO2 ABG pO2 ABG HCO3 ABG O2 Saturation ABG Base Excess POC ABG pCO2 ABG Hemoglobin ABG Oxyhemoglobin ABG Glucose Oxyhemoglobin Sodium Potassium Chloride Carbon Dioxide BUN Creatinine Glucose POC Glucose 163 H 180 H 150 H Lactic Acid Calcium Phosphorus Magnesium AST ALT Lactate Dehydrogenase CK-MB (CK-2) C-Reactive Protein NT-Pro-B Natriuret Pep Total Protein Albumin Arterial Blood Glucose Urine WBC (Auto) 12/30/19 12/31/19 12/31/19 23:43 04:55 05:07 WBC RBC Hgb Hct MCHC RDW MCV MCH Lymph % (Auto) [place] % (Auto) [place] # Eos # Lymph # (Auto) [place] # (Auto) Eos # (Auto) Seg Neutrophils % Seg Neuts % (Manual) Baso # (Auto) Lymphocytes % (Manual) Monocytes % (Manual) Eosinophils % (Manual) Basophils % (Manual) Seg Neutrophils # Seg Neutrophils # Man Lymphocytes # (Manual) Monocytes # (Manual) Eosinophils # (Manual) Nucleated RBC % Basophils # (Manual) PT INR APTT Heparin Anti-Xa Level ABG pH POC ABG pO2 ABG pO2 ABG HCO3 ABG O2 Saturation ABG Base Excess POC ABG pCO2 ABG Hemoglobin ABG Oxyhemoglobin ABG Glucose Oxyhemoglobin Sodium Potassium 5.6 H D Chloride Carbon Dioxide BUN 33 H Creatinine Glucose 131 H POC Glucose 142 H 134 H Lactic Acid Calcium Phosphorus Magnesium AST ALT Lactate Dehydrogenase CK-MB (CK-2) C-Reactive Protein NT-Pro-B Natriuret Pep Total Protein Albumin Arterial Blood Glucose Urine WBC (Auto) 12/31/19 12/31/19 12/31/19 11:30 17:19 17:36 WBC RBC Hgb Hct MCHC RDW MCV MCH Lymph % (Auto) [place] % (Auto) [place] # Eos # Lymph # (Auto) [place] # (Auto) Eos # (Auto) Seg Neutrophils % Seg Neuts % (Manual) Baso # (Auto) Lymphocytes % (Manual) Monocytes % (Manual) Eosinophils % (Manual) Basophils % (Manual) Seg Neutrophils # Seg Neutrophils # Man Lymphocytes # (Manual) Monocytes # (Manual) Eosinophils # (Manual) Nucleated RBC % Basophils # (Manual) PT INR APTT Heparin Anti-Xa Level ABG pH POC ABG pO2 ABG pO2 ABG HCO3 ABG O2 Saturation ABG Base Excess POC ABG pCO2 ABG Hemoglobin ABG Oxyhemoglobin ABG Glucose Oxyhemoglobin Sodium Potassium Chloride Carbon Dioxide BUN 35 H Creatinine Glucose 156 H POC Glucose 158 H 181 H Lactic Acid Calcium Phosphorus Magnesium AST ALT Lactate Dehydrogenase CK-MB (CK-2) C-Reactive Protein NT-Pro-B Natriuret Pep Total Protein Albumin Arterial Blood Glucose Urine WBC (Auto) 12/31/19 12/31/19 12/31/19 18:16 19:41 21:53 WBC RBC Hgb Hct MCHC RDW MCV MCH Lymph % (Auto) [place] % (Auto) [place] # Eos # Lymph # (Auto) [place] # (Auto) Eos # (Auto) Seg Neutrophils % Seg Neuts % (Manual) Baso # (Auto) Lymphocytes % (Manual) Monocytes % (Manual) Eosinophils % (Manual) Basophils % (Manual) Seg Neutrophils # Seg Neutrophils # Man Lymphocytes # (Manual) Monocytes # (Manual) Eosinophils # (Manual) Nucleated RBC % Basophils # (Manual) PT INR APTT Heparin Anti-Xa Level 0.20 L ABG pH POC ABG pO2 ABG pO2 ABG HCO3 ABG O2 Saturation ABG Base Excess POC ABG pCO2 ABG Hemoglobin ABG Oxyhemoglobin ABG Glucose Oxyhemoglobin Sodium Potassium Chloride Carbon Dioxide BUN 34 H Creatinine Glucose 169 H POC Glucose 141 H Lactic Acid Calcium Phosphorus Magnesium AST ALT Lactate Dehydrogenase CK-MB (CK-2) C-Reactive Protein NT-Pro-B Natriuret Pep Total Protein Albumin Arterial Blood Glucose Urine WBC (Auto) 12/31/19 01/01/20 01/01/20 23:51 05:17 10:40 WBC RBC Hgb Hct MCHC RDW MCV MCH Lymph % (Auto) [place] % (Auto) [place] # Eos # Lymph # (Auto) [place] # (Auto) Eos # (Auto) Seg Neutrophils % Seg Neuts % (Manual) Baso # (Auto) Lymphocytes % (Manual) Monocytes % (Manual) Eosinophils % (Manual) Basophils % (Manual) Seg Neutrophils # Seg Neutrophils # Man Lymphocytes # (Manual) Monocytes # (Manual) Eosinophils # (Manual) Nucleated RBC % Basophils # (Manual) PT INR APTT Heparin Anti-Xa Level ABG pH POC ABG pO2 ABG pO2 ABG HCO3 ABG O2 Saturation ABG Base Excess POC ABG pCO2 ABG Hemoglobin ABG Oxyhemoglobin ABG Glucose Oxyhemoglobin Sodium Potassium Chloride Carbon Dioxide BUN 31 H Creatinine 0.7 L Glucose 137 H POC Glucose 131 H 155 H Lactic Acid Calcium Phosphorus Magnesium AST 73 H ALT 97 H Lactate Dehydrogenase CK-MB (CK-2) C-Reactive Protein NT-Pro-B Natriuret Pep 3866 H Total Protein Albumin 2.8 L Arterial Blood Glucose Urine WBC (Auto) 01/01/20 01/01/20 01/01/20 12:26 15:33 17:53 WBC 14.3 H RBC 3.35 L Hgb 9.1 L Hct 28.8 L MCHC RDW 17.0 H MCV MCH 27 L Lymph % (Auto) 7.0 L [place] % (Auto) 7.6 H [place] # Eos # Lymph # (Auto) 1.0 L [place] # (Auto) 1.1 H Eos # (Auto) Seg Neutrophils % 83.3 H Seg Neuts % (Manual) Baso # (Auto) Lymphocytes % (Manual) Monocytes % (Manual) Eosinophils % (Manual) Basophils % (Manual) Seg Neutrophils # 12.0 H Seg Neutrophils # Man Lymphocytes # (Manual) Monocytes # (Manual) Eosinophils # (Manual) Nucleated RBC % Basophils # (Manual) PT INR APTT Heparin Anti-Xa Level ABG pH POC ABG pO2 ABG pO2 ABG HCO3 ABG O2 Saturation ABG Base Excess POC ABG pCO2 ABG Hemoglobin ABG Oxyhemoglobin ABG Glucose Oxyhemoglobin Sodium Potassium Chloride Carbon Dioxide BUN Creatinine Glucose POC Glucose 128 H 128 H Lactic Acid Calcium Phosphorus Magnesium AST ALT Lactate Dehydrogenase CK-MB (CK-2) C-Reactive Protein NT-Pro-B Natriuret Pep Total Protein Albumin Arterial Blood Glucose Urine WBC (Auto) 01/01/20 01/02/20 01/02/20 23:04 05:39 07:00 WBC RBC Hgb Hct MCHC RDW MCV MCH Lymph % (Auto) [place] % (Auto) [place] # Eos # Lymph # (Auto) [place] # (Auto) Eos # (Auto) Seg Neutrophils % Seg Neuts % (Manual) Baso # (Auto) Lymphocytes % (Manual) Monocytes % (Manual) Eosinophils % (Manual) Basophils % (Manual) Seg Neutrophils # Seg Neutrophils # Man Lymphocytes # (Manual) Monocytes # (Manual) Eosinophils # (Manual) Nucleated RBC % Basophils # (Manual) PT INR APTT Heparin Anti-Xa Level 0.13 L ABG pH POC ABG pO2 ABG pO2 ABG HCO3 ABG O2 Saturation ABG Base Excess POC ABG pCO2 ABG Hemoglobin ABG Oxyhemoglobin ABG Glucose Oxyhemoglobin Sodium Potassium Chloride Carbon Dioxide BUN Creatinine Glucose POC Glucose 120 H 169 H Lactic Acid Calcium Phosphorus Magnesium AST ALT Lactate Dehydrogenase CK-MB (CK-2) C-Reactive Protein NT-Pro-B Natriuret Pep Total Protein Albumin Arterial Blood Glucose Urine WBC (Auto) 01/02/20 01/02/20 01/02/20 12:15 14:06 17:58 WBC RBC Hgb Hct MCHC RDW MCV MCH Lymph % (Auto) [place] % (Auto) [place] # Eos # Lymph # (Auto) [place] # (Auto) Eos # (Auto) Seg Neutrophils % Seg Neuts % (Manual) Baso # (Auto) Lymphocytes % (Manual) Monocytes % (Manual) Eosinophils % (Manual) Basophils % (Manual) Seg Neutrophils # Seg Neutrophils # Man Lymphocytes # (Manual) Monocytes # (Manual) Eosinophils # (Manual) Nucleated RBC % Basophils # (Manual) PT INR APTT Heparin Anti-Xa Level < 0.10 L ABG pH POC ABG pO2 ABG pO2 ABG HCO3 ABG O2 Saturation ABG Base Excess POC ABG pCO2 ABG Hemoglobin ABG Oxyhemoglobin ABG Glucose Oxyhemoglobin Sodium Potassium Chloride Carbon Dioxide BUN Creatinine Glucose POC Glucose 190 H 198 H Lactic Acid Calcium Phosphorus Magnesium AST ALT Lactate Dehydrogenase CK-MB (CK-2) C-Reactive Protein NT-Pro-B Natriuret Pep Total Protein Albumin Arterial Blood Glucose Urine WBC (Auto) 01/02/20 01/02/20 01/03/20 21:43 23:33 05:42 WBC RBC Hgb Hct MCHC RDW MCV MCH Lymph % (Auto) [place] % (Auto) [place] # Eos # Lymph # (Auto) [place] # (Auto) Eos # (Auto) Seg Neutrophils % Seg Neuts % (Manual) Baso # (Auto) Lymphocytes % (Manual) Monocytes % (Manual) Eosinophils % (Manual) Basophils % (Manual) Seg Neutrophils # Seg Neutrophils # Man Lymphocytes # (Manual) Monocytes # (Manual) Eosinophils # (Manual) Nucleated RBC % Basophils # (Manual) PT INR APTT Heparin Anti-Xa Level 0.10 L ABG pH POC ABG pO2 ABG pO2 ABG HCO3 ABG O2 Saturation ABG Base Excess POC ABG pCO2 ABG Hemoglobin ABG Oxyhemoglobin ABG Glucose Oxyhemoglobin Sodium Potassium Chloride Carbon Dioxide BUN Creatinine Glucose POC Glucose 180 H 163 H Lactic Acid Calcium Phosphorus Magnesium AST ALT Lactate Dehydrogenase CK-MB (CK-2) C-Reactive Protein NT-Pro-B Natriuret Pep Total Protein Albumin Arterial Blood Glucose Urine WBC (Auto) 01/03/20 01/03/20 01/03/20 06:50 07:25 07:45 WBC 12.1 H RBC 3.35 L Hgb 9.0 L Hct 28.9 L MCHC 31 L RDW 16.6 H MCV MCH 27 L Lymph % (Auto) 13.0 L [place] % (Auto) 8.6 H [place] # Eos # Lymph # (Auto) [place] # (Auto) 1.0 H Eos # (Auto) Seg Neutrophils % 75.9 H Seg Neuts % (Manual) Baso # (Auto) Lymphocytes % (Manual) Monocytes % (Manual) Eosinophils % (Manual) Basophils % (Manual) Seg Neutrophils # 9.2 H Seg Neutrophils # Man Lymphocytes # (Manual) Monocytes # (Manual) Eosinophils # (Manual) Nucleated RBC % Basophils # (Manual) PT INR APTT Heparin Anti-Xa Level 0.29 L ABG pH POC ABG pO2 ABG pO2 ABG HCO3 ABG O2 Saturation ABG Base Excess POC ABG pCO2 ABG Hemoglobin ABG Oxyhemoglobin ABG Glucose Oxyhemoglobin Sodium Potassium 3.3 L D Chloride Carbon Dioxide 35 H D BUN 23 H Creatinine 0.6 L Glucose 149 H POC Glucose Lactic Acid Calcium Phosphorus Magnesium AST ALT 88 H Lactate Dehydrogenase CK-MB (CK-2) C-Reactive Protein NT-Pro-B Natriuret Pep Total Protein 6.2 L Albumin 2.9 L Arterial Blood Glucose Urine WBC (Auto) 01/03/20 01/03/20 01/03/20 12:05 17:42 18:30 WBC RBC Hgb Hct MCHC RDW MCV MCH Lymph % (Auto) [place] % (Auto) [place] # Eos # Lymph # (Auto) [place] # (Auto) Eos # (Auto) Seg Neutrophils % Seg Neuts % (Manual) Baso # (Auto) Lymphocytes % (Manual) Monocytes % (Manual) Eosinophils % (Manual) Basophils % (Manual) Seg Neutrophils # Seg Neutrophils # Man Lymphocytes # (Manual) Monocytes # (Manual) Eosinophils # (Manual) Nucleated RBC % Basophils # (Manual) PT INR APTT Heparin Anti-Xa Level ABG pH POC ABG pO2 ABG pO2 70.7 L ABG HCO3 36.1 H ABG O2 Saturation 94.4 L ABG Base Excess 10.0 H POC ABG pCO2 ABG Hemoglobin 9.7 L ABG Oxyhemoglobin ABG Glucose Oxyhemoglobin 91.8 L Sodium Potassium Chloride Carbon Dioxide BUN Creatinine Glucose POC Glucose 128 H 132 H Lactic Acid Calcium Phosphorus Magnesium AST ALT Lactate Dehydrogenase CK-MB (CK-2) C-Reactive Protein NT-Pro-B Natriuret Pep Total Protein Albumin Arterial Blood Glucose Urine WBC (Auto) 01/04/20 01/04/20 01/04/20 00:10 04:26 05:23 WBC RBC Hgb Hct MCHC RDW MCV MCH Lymph % (Auto) [place] % (Auto) Wilcox # Eos # Lymph # (Auto) [place] # (Auto) Eos # (Auto) Seg Neutrophils % Seg Neuts % (Manual) Baso # (Auto) Lymphocytes % (Manual) Monocytes % (Manual) Eosinophils % (Manual) Basophils % (Manual) Seg Neutrophils # Seg Neutrophils # Man Lymphocytes # (Manual) Monocytes # (Manual) Eosinophils # (Manual) Nucleated RBC % Basophils # (Manual) PT INR APTT Heparin Anti-Xa Level 0.16 L ABG pH POC ABG pO2 ABG pO2 ABG HCO3 ABG O2 Saturation ABG Base Excess POC ABG pCO2 ABG Hemoglobin ABG Oxyhemoglobin ABG Glucose Oxyhemoglobin Sodium Potassium Chloride Carbon Dioxide BUN Creatinine Glucose POC Glucose 121 H 119 H Lactic Acid Calcium Phosphorus Magnesium AST ALT Lactate Dehydrogenase CK-MB (CK-2) C-Reactive Protein NT-Pro-B Natriuret Pep Total Protein Albumin Arterial Blood Glucose Urine WBC (Auto) 01/04/20 01/04/20 01/04/20 09:50 09:50 12:18 WBC 15.4 H RBC 3.30 L Hgb 8.7 L Hct 28.2 L MCHC 31 L RDW 17.0 H MCV MCH 26 L Lymph % (Auto) [place] % (Auto) 7.6 H [place] # Eos # Lymph # (Auto) [place] # (Auto) 1.2 H Eos # (Auto) Seg Neutrophils % 75.4 H Seg Neuts % (Manual) Baso # (Auto) Lymphocytes % (Manual) Monocytes % (Manual) Eosinophils % (Manual) Basophils % (Manual) Seg Neutrophils # 11.6 H Seg Neutrophils # Man Lymphocytes # (Manual) Monocytes # (Manual) Eosinophils # (Manual) Nucleated RBC % Basophils # (Manual) PT INR APTT Heparin Anti-Xa Level ABG pH POC ABG pO2 ABG pO2 ABG HCO3 ABG O2 Saturation ABG Base Excess POC ABG pCO2 ABG Hemoglobin ABG Oxyhemoglobin ABG Glucose Oxyhemoglobin Sodium 148 H Potassium 3.5 L Chloride Carbon Dioxide 32 H BUN Creatinine 0.6 L Glucose 114 H POC Glucose 111 H Lactic Acid Calcium Phosphorus Magnesium AST ALT 59 H Lactate Dehydrogenase CK-MB (CK-2) C-Reactive Protein NT-Pro-B Natriuret Pep Total Protein Albumin 2.6 L Arterial Blood Glucose Urine WBC (Auto) 01/05/20 01/05/20 01/05/20 04:05 04:05 05:19 WBC 11.7 H RBC 3.50 L Hgb 9.3 L Hct 29.9 L MCHC 31 L RDW 16.6 H MCV MCH 27 L Lymph % (Auto) 13.1 L [place] % (Auto) 9.7 H [place] # Eos # Lymph # (Auto) [place] # (Auto) 1.1 H Eos # (Auto) Seg Neutrophils % 74.0 H Seg Neuts % (Manual) Baso # (Auto) Lymphocytes % (Manual) Monocytes % (Manual) Eosinophils % (Manual) Basophils % (Manual) Seg Neutrophils # 8.6 H Seg Neutrophils # Man Lymphocytes # (Manual) Monocytes # (Manual) Eosinophils # (Manual) Nucleated RBC % Basophils # (Manual) PT INR APTT Heparin Anti-Xa Level ABG pH POC ABG pO2 ABG pO2 ABG HCO3 ABG O2 Saturation ABG Base Excess POC ABG pCO2 ABG Hemoglobin ABG Oxyhemoglobin ABG Glucose Oxyhemoglobin Sodium 151 H Potassium Chloride Carbon Dioxide 34 H BUN Creatinine 0.7 L Glucose POC Glucose 112 H Lactic Acid Calcium Phosphorus Magnesium AST ALT 59 H Lactate Dehydrogenase CK-MB (CK-2) C-Reactive Protein NT-Pro-B Natriuret Pep Total Protein 5.8 L Albumin 2.6 L Arterial Blood Glucose Urine WBC (Auto) 01/05/20 01/06/20 01/06/20 16:04 00:23 04:44 WBC RBC 3.36 L Hgb 8.9 L Hct 28.7 L MCHC 31 L RDW 16.9 H MCV MCH 26 L Lymph % (Auto) [place] % (Auto) 9.4 H [place] # Eos # Lymph # (Auto) [place] # (Auto) Eos # (Auto) Seg Neutrophils % Seg Neuts % (Manual) Baso # (Auto) Lymphocytes % (Manual) Monocytes % (Manual) Eosinophils % (Manual) Basophils % (Manual) Seg Neutrophils # Seg Neutrophils # Man Lymphocytes # (Manual) Monocytes # (Manual) Eosinophils # (Manual) Nucleated RBC % Basophils # (Manual) PT INR APTT Heparin Anti-Xa Level ABG pH POC ABG pO2 ABG pO2 ABG HCO3 ABG O2 Saturation ABG Base Excess POC ABG pCO2 ABG Hemoglobin ABG Oxyhemoglobin ABG Glucose Oxyhemoglobin Sodium 151 H Potassium 3.2 L Chloride Carbon Dioxide 34 H BUN Creatinine 0.6 L Glucose POC Glucose 107 H Lactic Acid Calcium Phosphorus Magnesium AST ALT Lactate Dehydrogenase CK-MB (CK-2) C-Reactive Protein NT-Pro-B Natriuret Pep Total Protein Albumin Arterial Blood Glucose Urine WBC (Auto) 01/06/20 01/06/20 01/06/20 04:44 05:33 12:04 WBC RBC Hgb Hct MCHC RDW MCV MCH Lymph % (Auto) [place] % (Auto) [place] # Eos # Lymph # (Auto) [place] # (Auto) Eos # (Auto) Seg Neutrophils % Seg Neuts % (Manual) Baso # (Auto) Lymphocytes % (Manual) Monocytes % (Manual) Eosinophils % (Manual) Basophils % (Manual) Seg Neutrophils # Seg Neutrophils # Man Lymphocytes # (Manual) Monocytes # (Manual) Eosinophils # (Manual) Nucleated RBC % Basophils # (Manual) PT INR APTT Heparin Anti-Xa Level ABG pH POC ABG pO2 ABG pO2 ABG HCO3 ABG O2 Saturation ABG Base Excess POC ABG pCO2 ABG Hemoglobin ABG Oxyhemoglobin ABG Glucose Oxyhemoglobin Sodium 151 H Potassium 3.4 L Chloride Carbon Dioxide 33 H BUN Creatinine 0.6 L Glucose 118 H POC Glucose 118 H 123 H Lactic Acid Calcium Phosphorus Magnesium AST ALT Lactate Dehydrogenase CK-MB (CK-2) C-Reactive Protein NT-Pro-B Natriuret Pep Total Protein 6.2 L Albumin 2.6 L Arterial Blood Glucose Urine WBC (Auto) 01/06/20 01/07/20 01/07/20 17:54 00:06 04:10 WBC RBC 3.42 L Hgb 8.9 L Hct 29.0 L MCHC 31 L RDW 17.1 H MCV MCH 26 L Lymph % (Auto) [place] % (Auto) 8.4 H [place] # Eos # Lymph # (Auto) [place] # (Auto) Eos # (Auto) Seg Neutrophils % Seg Neuts % (Manual) Baso # (Auto) Lymphocytes % (Manual) Monocytes % (Manual) Eosinophils % (Manual) Basophils % (Manual) Seg Neutrophils # Seg Neutrophils # Man Lymphocytes # (Manual) Monocytes # (Manual) Eosinophils # (Manual) Nucleated RBC % Basophils # (Manual) PT INR APTT Heparin Anti-Xa Level ABG pH POC ABG pO2 ABG pO2 ABG HCO3 ABG O2 Saturation ABG Base Excess POC ABG pCO2 ABG Hemoglobin ABG Oxyhemoglobin ABG Glucose Oxyhemoglobin Sodium Potassium Chloride Carbon Dioxide BUN Creatinine Glucose POC Glucose 112 H 126 H Lactic Acid Calcium Phosphorus Magnesium AST ALT Lactate Dehydrogenase CK-MB (CK-2) C-Reactive Protein NT-Pro-B Natriuret Pep Total Protein Albumin Arterial Blood Glucose Urine WBC (Auto) 01/07/20 01/07/20 01/07/20 04:10 05:59 12:27 WBC RBC Hgb Hct MCHC RDW MCV MCH Lymph % (Auto) [place] % (Auto) Wilcox # Eos # Lymph # (Auto) [place] # (Auto) Eos # (Auto) Seg Neutrophils % Seg Neuts % (Manual) Baso # (Auto) Lymphocytes % (Manual) Monocytes % (Manual) Eosinophils % (Manual) Basophils % (Manual) Seg Neutrophils # Seg Neutrophils # Man Lymphocytes # (Manual) Monocytes # (Manual) Eosinophils # (Manual) Nucleated RBC % Basophils # (Manual) PT INR APTT Heparin Anti-Xa Level ABG pH POC ABG pO2 ABG pO2 ABG HCO3 ABG O2 Saturation ABG Base Excess POC ABG pCO2 ABG Hemoglobin ABG Oxyhemoglobin ABG Glucose Oxyhemoglobin Sodium 153 H Potassium 3.5 L Chloride Carbon Dioxide 34 H BUN Creatinine 0.6 L Glucose 121 H POC Glucose 121 H 126 H Lactic Acid Calcium Phosphorus Magnesium AST ALT Lactate Dehydrogenase CK-MB (CK-2) C-Reactive Protein NT-Pro-B Natriuret Pep Total Protein 5.9 L Albumin 2.4 L Arterial Blood Glucose Urine WBC (Auto) 01/07/20 01/08/20 01/08/20 18:12 00:03 05:41 WBC RBC Hgb Hct MCHC RDW MCV MCH Lymph % (Auto) [place] % (Auto) [place] # Eos # Lymph # (Auto) [place] # (Auto) Eos # (Auto) Seg Neutrophils % Seg Neuts % (Manual) Baso # (Auto) Lymphocytes % (Manual) Monocytes % (Manual) Eosinophils % (Manual) Basophils % (Manual) Seg Neutrophils # Seg Neutrophils # Man Lymphocytes # (Manual) Monocytes # (Manual) Eosinophils # (Manual) Nucleated RBC % Basophils # (Manual) PT INR APTT Heparin Anti-Xa Level ABG pH POC ABG pO2 ABG pO2 ABG HCO3 ABG O2 Saturation ABG Base Excess POC ABG pCO2 ABG Hemoglobin ABG Oxyhemoglobin ABG Glucose Oxyhemoglobin Sodium Potassium Chloride Carbon Dioxide BUN Creatinine Glucose POC Glucose 124 H 130 H 138 H Lactic Acid Calcium Phosphorus Magnesium AST ALT Lactate Dehydrogenase CK-MB (CK-2) C-Reactive Protein NT-Pro-B Natriuret Pep Total Protein Albumin Arterial Blood Glucose Urine WBC (Auto) 01/08/20 01/08/20 01/08/20 09:28 11:42 18:21 WBC RBC Hgb Hct MCHC RDW MCV MCH Lymph % (Auto) [place] % (Auto) Wilcox # Eos # Lymph # (Auto) [place] # (Auto) Eos # (Auto) Seg Neutrophils % Seg Neuts % (Manual) Baso # (Auto) Lymphocytes % (Manual) Monocytes % (Manual) Eosinophils % (Manual) Basophils % (Manual) Seg Neutrophils # Seg Neutrophils # Man Lymphocytes # (Manual) Monocytes # (Manual) Eosinophils # (Manual) Nucleated RBC % Basophils # (Manual) PT INR APTT Heparin Anti-Xa Level ABG pH POC ABG pO2 ABG pO2 ABG HCO3 ABG O2 Saturation ABG Base Excess POC ABG pCO2 ABG Hemoglobin ABG Oxyhemoglobin ABG Glucose Oxyhemoglobin Sodium Potassium Chloride Carbon Dioxide BUN Creatinine Glucose POC Glucose 181 H 150 H 129 H Lactic Acid Calcium Phosphorus Magnesium AST ALT Lactate Dehydrogenase CK-MB (CK-2) C-Reactive Protein NT-Pro-B Natriuret Pep Total Protein Albumin Arterial Blood Glucose Urine WBC (Auto) 01/08/20 01/08/20 01/09/20 19:25 23:55 04:11 WBC RBC 3.43 L Hgb 8.9 L Hct 28.7 L MCHC 31 L RDW 17.6 H MCV MCH 26 L Lymph % (Auto) [place] % (Auto) 8.6 H [place] # Eos # Lymph # (Auto) [place] # (Auto) Eos # (Auto) Seg Neutrophils % Seg Neuts % (Manual) Baso # (Auto) Lymphocytes % (Manual) Monocytes % (Manual) Eosinophils % (Manual) Basophils % (Manual) Seg Neutrophils # Seg Neutrophils # Man Lymphocytes # (Manual) Monocytes # (Manual) Eosinophils # (Manual) Nucleated RBC % Basophils # (Manual) PT INR APTT Heparin Anti-Xa Level ABG pH POC ABG pO2 ABG pO2 ABG HCO3 ABG O2 Saturation ABG Base Excess POC ABG pCO2 ABG Hemoglobin ABG Oxyhemoglobin ABG Glucose Oxyhemoglobin Sodium Potassium Chloride Carbon Dioxide BUN Creatinine 0.7 L Glucose 117 H POC Glucose 132 H Lactic Acid Calcium Phosphorus Magnesium AST ALT Lactate Dehydrogenase CK-MB (CK-2) C-Reactive Protein NT-Pro-B Natriuret Pep Total Protein Albumin Arterial Blood Glucose Urine WBC (Auto) 01/09/20 01/09/20 01/09/20 04:11 05:38 22:58 WBC RBC Hgb Hct MCHC RDW MCV MCH Lymph % (Auto) Wilcox % (Auto) Wilcox # Eos # Lymph # (Auto) Wilcox # (Auto) Eos # (Auto) Seg Neutrophils % Seg Neuts % (Manual) Baso # (Auto) Lymphocytes % (Manual) Monocytes % (Manual) Eosinophils % (Manual) Basophils % (Manual) Seg Neutrophils # Seg Neutrophils # Man Lymphocytes # (Manual) Monocytes # (Manual) Eosinophils # (Manual) Nucleated RBC % Basophils # (Manual) PT INR APTT Heparin Anti-Xa Level ABG pH POC ABG pO2 ABG pO2 ABG HCO3 ABG O2 Saturation ABG Base Excess POC ABG pCO2 ABG Hemoglobin ABG Oxyhemoglobin ABG Glucose Oxyhemoglobin Sodium 147 H Potassium 3.3 L D Chloride Carbon Dioxide 32 H BUN Creatinine 0.6 L Glucose 106 H POC Glucose 107 H 113 H Lactic Acid Calcium Phosphorus Magnesium AST ALT Lactate Dehydrogenase CK-MB (CK-2) C-Reactive Protein NT-Pro-B Natriuret Pep Total Protein Albumin Arterial Blood Glucose Urine WBC (Auto) 01/10/20 01/10/20 01/10/20 04:05 11:36 17:54 WBC RBC Hgb Hct MCHC RDW MCV MCH Lymph % (Auto) Wilcox % (Auto) Wilcox # Eos # Lymph # (Auto) Wilcox # (Auto) Eos # (Auto) Seg Neutrophils % Seg Neuts % (Manual) Baso # (Auto) Lymphocytes % (Manual) Monocytes % (Manual) Eosinophils % (Manual) Basophils % (Manual) Seg Neutrophils # Seg Neutrophils # Man Lymphocytes # (Manual) Monocytes # (Manual) Eosinophils # (Manual) Nucleated RBC % Basophils # (Manual) PT INR APTT Heparin Anti-Xa Level ABG pH POC ABG pO2 ABG pO2 ABG HCO3 ABG O2 Saturation ABG Base Excess POC ABG pCO2 ABG Hemoglobin ABG Oxyhemoglobin ABG Glucose Oxyhemoglobin Sodium Potassium Chloride Carbon Dioxide BUN Creatinine 0.7 L Glucose 110 H POC Glucose 129 H 117 H Lactic Acid Calcium Phosphorus Magnesium AST ALT Lactate Dehydrogenase CK-MB (CK-2) C-Reactive Protein NT-Pro-B Natriuret Pep Total Protein Albumin Arterial Blood Glucose Urine WBC (Auto) 01/10/20 01/11/20 01/11/20 23:52 03:19 12:09 WBC RBC Hgb Hct MCHC RDW MCV MCH Lymph % (Auto) [place] % (Auto) Wilcox # Eos # Lymph # (Auto) [place] # (Auto) Eos # (Auto) Seg Neutrophils % Seg Neuts % (Manual) Baso # (Auto) Lymphocytes % (Manual) Monocytes % (Manual) Eosinophils % (Manual) Basophils % (Manual) Seg Neutrophils # Seg Neutrophils # Man Lymphocytes # (Manual) Monocytes # (Manual) Eosinophils # (Manual) Nucleated RBC % Basophils # (Manual) PT INR APTT Heparin Anti-Xa Level ABG pH POC ABG pO2 ABG pO2 ABG HCO3 ABG O2 Saturation ABG Base Excess POC ABG pCO2 ABG Hemoglobin ABG Oxyhemoglobin ABG Glucose Oxyhemoglobin Sodium Potassium Chloride Carbon Dioxide BUN Creatinine Glucose POC Glucose 117 H 136 H 115 H Lactic Acid Calcium Phosphorus Magnesium AST ALT Lactate Dehydrogenase CK-MB (CK-2) C-Reactive Protein NT-Pro-B Natriuret Pep Total Protein Albumin Arterial Blood Glucose Urine WBC (Auto) 01/11/20 01/11/20 01/12/20 18:27 23:28 00:23 WBC RBC Hgb 9.8 L Hct 31.6 L MCHC 31 L RDW 17.8 H MCV 83 L MCH 26 L Lymph % (Auto) [place] % (Auto) 8.0 H [place] # Eos # Lymph # (Auto) [place] # (Auto) Eos # (Auto) Seg Neutrophils % Seg Neuts % (Manual) Baso # (Auto) Lymphocytes % (Manual) Monocytes % (Manual) Eosinophils % (Manual) Basophils % (Manual) Seg Neutrophils # Seg Neutrophils # Man Lymphocytes # (Manual) Monocytes # (Manual) Eosinophils # (Manual) Nucleated RBC % Basophils # (Manual) PT INR APTT Heparin Anti-Xa Level ABG pH POC ABG pO2 ABG pO2 ABG HCO3 ABG O2 Saturation ABG Base Excess POC ABG pCO2 ABG Hemoglobin ABG Oxyhemoglobin ABG Glucose Oxyhemoglobin Sodium Potassium Chloride Carbon Dioxide BUN Creatinine Glucose POC Glucose 118 H 122 H Lactic Acid Calcium Phosphorus Magnesium AST ALT Lactate Dehydrogenase CK-MB (CK-2) C-Reactive Protein NT-Pro-B Natriuret Pep Total Protein Albumin Arterial Blood Glucose Urine WBC (Auto) 01/12/20 01/12/20 01/12/20 00:23 04:18 04:18 WBC RBC Hgb 9.6 L Hct 30.9 L MCHC 31 L RDW 17.3 H MCV 81 L MCH 25 L Lymph % (Auto) [place] % (Auto) Wilcox # Eos # Lymph # (Auto) [place] # (Auto) Eos # (Auto) Seg Neutrophils % Seg Neuts % (Manual) Baso # (Auto) Lymphocytes % (Manual) Monocytes % (Manual) Eosinophils % (Manual) Basophils % (Manual) Seg Neutrophils # Seg Neutrophils # Man Lymphocytes # (Manual) Monocytes # (Manual) Eosinophils # (Manual) Nucleated RBC % Basophils # (Manual) PT INR APTT Heparin Anti-Xa Level ABG pH POC ABG pO2 ABG pO2 ABG HCO3 ABG O2 Saturation ABG Base Excess POC ABG pCO2 ABG Hemoglobin ABG Oxyhemoglobin ABG Glucose Oxyhemoglobin Sodium Potassium Chloride Carbon Dioxide BUN Creatinine 0.7 L 0.7 L Glucose 111 H 108 H POC Glucose Lactic Acid Calcium Phosphorus Magnesium AST ALT Lactate Dehydrogenase CK-MB (CK-2) C-Reactive Protein NT-Pro-B Natriuret Pep Total Protein Albumin 2.6 L Arterial Blood Glucose Urine WBC (Auto) 01/12/20 01/12/20 01/12/20 06:03 12:27 13:58 WBC RBC Hgb Hct MCHC RDW MCV MCH Lymph % (Auto) [place] % (Auto) [place] # Eos # Lymph # (Auto) [place] # (Auto) Eos # (Auto) Seg Neutrophils % Seg Neuts % (Manual) Baso # (Auto) Lymphocytes % (Manual) Monocytes % (Manual) Eosinophils % (Manual) Basophils % (Manual) Seg Neutrophils # Seg Neutrophils # Man Lymphocytes # (Manual) Monocytes # (Manual) Eosinophils # (Manual) Nucleated RBC % Basophils # (Manual) PT INR APTT Heparin Anti-Xa Level ABG pH 7.453 H POC ABG pO2 76.6 L ABG pO2 ABG HCO3 ABG O2 Saturation ABG Base Excess POC ABG pCO2 ABG Hemoglobin 10.3 L ABG Oxyhemoglobin ABG Glucose 99 H Oxyhemoglobin Sodium Potassium Chloride Carbon Dioxide BUN Creatinine Glucose POC Glucose 128 H 121 H Lactic Acid Calcium Phosphorus Magnesium AST ALT Lactate Dehydrogenase CK-MB (CK-2) C-Reactive Protein NT-Pro-B Natriuret Pep Total Protein Albumin Arterial Blood Glucose 99 H Urine WBC (Auto) 01/12/20 01/13/20 01/13/20 18:24 12:01 17:46 WBC RBC Hgb Hct MCHC RDW MCV MCH Lymph % (Auto) [place] % (Auto) [place] # Eos # Lymph # (Auto) [place] # (Auto) Eos # (Auto) Seg Neutrophils % Seg Neuts % (Manual) Baso # (Auto) Lymphocytes % (Manual) Monocytes % (Manual) Eosinophils % (Manual) Basophils % (Manual) Seg Neutrophils # Seg Neutrophils # Man Lymphocytes # (Manual) Monocytes # (Manual) Eosinophils # (Manual) Nucleated RBC % Basophils # (Manual) PT INR APTT Heparin Anti-Xa Level ABG pH POC ABG pO2 ABG pO2 ABG HCO3 ABG O2 Saturation ABG Base Excess POC ABG pCO2 ABG Hemoglobin ABG Oxyhemoglobin ABG Glucose Oxyhemoglobin Sodium Potassium Chloride Carbon Dioxide BUN Creatinine Glucose POC Glucose 119 H 107 H 124 H Lactic Acid Calcium Phosphorus Magnesium AST ALT Lactate Dehydrogenase CK-MB (CK-2) C-Reactive Protein NT-Pro-B Natriuret Pep Total Protein Albumin Arterial Blood Glucose Urine WBC (Auto) 01/13/20 01/14/20 01/14/20 20:40 00:10 05:33 WBC RBC Hgb Hct MCHC RDW MCV MCH Lymph % (Auto) [place] % (Auto) [place] # Eos # Lymph # (Auto) [place] # (Auto) Eos # (Auto) Seg Neutrophils % Seg Neuts % (Manual) Baso # (Auto) Lymphocytes % (Manual) Monocytes % (Manual) Eosinophils % (Manual) Basophils % (Manual) Seg Neutrophils # Seg Neutrophils # Man Lymphocytes # (Manual) Monocytes # (Manual) Eosinophils # (Manual) Nucleated RBC % Basophils # (Manual) PT INR APTT Heparin Anti-Xa Level ABG pH POC ABG pO2 ABG pO2 65.3 L ABG HCO3 31.8 H ABG O2 Saturation 93.5 L ABG Base Excess 6.7 H POC ABG pCO2 ABG Hemoglobin 13.3 L ABG Oxyhemoglobin ABG Glucose Oxyhemoglobin 90.9 L Sodium Potassium Chloride Carbon Dioxide BUN Creatinine Glucose POC Glucose 111 H 111 H Lactic Acid Calcium Phosphorus Magnesium AST ALT Lactate Dehydrogenase CK-MB (CK-2) C-Reactive Protein NT-Pro-B Natriuret Pep Total Protein Albumin Arterial Blood Glucose Urine WBC (Auto) 01/14/20 01/14/20 01/14/20 12:10 16:14 16:14 WBC RBC Hgb 10.6 L Hct 34.2 L MCHC 31 L RDW 18.3 H MCV 83 L MCH 26 L Lymph % (Auto) [place] % (Auto) 7.4 H [place] # Eos # Lymph # (Auto) [place] # (Auto) Eos # (Auto) Seg Neutrophils % 71.9 H Seg Neuts % (Manual) Baso # (Auto) Lymphocytes % (Manual) Monocytes % (Manual) Eosinophils % (Manual) Basophils % (Manual) Seg Neutrophils # Seg Neutrophils # Man Lymphocytes # (Manual) Monocytes # (Manual) Eosinophils # (Manual) Nucleated RBC % Basophils # (Manual) PT INR APTT Heparin Anti-Xa Level ABG pH POC ABG pO2 ABG pO2 ABG HCO3 ABG O2 Saturation ABG Base Excess POC ABG pCO2 ABG Hemoglobin ABG Oxyhemoglobin ABG Glucose Oxyhemoglobin Sodium Potassium Chloride Carbon Dioxide 31 H BUN Creatinine 0.6 L Glucose 131 H POC Glucose 139 H Lactic Acid Calcium Phosphorus Magnesium AST ALT Lactate Dehydrogenase CK-MB (CK-2) C-Reactive Protein NT-Pro-B Natriuret Pep Total Protein Albumin Arterial Blood Glucose Urine WBC (Auto) 01/14/20 01/15/20 01/15/20 18:05 00:52 05:35 WBC RBC Hgb Hct MCHC RDW MCV MCH Lymph % (Auto) [place] % (Auto) [place] # Eos # Lymph # (Auto) [place] # (Auto) Eos # (Auto) Seg Neutrophils % Seg Neuts % (Manual) Baso # (Auto) Lymphocytes % (Manual) Monocytes % (Manual) Eosinophils % (Manual) Basophils % (Manual) Seg Neutrophils # Seg Neutrophils # Man Lymphocytes # (Manual) Monocytes # (Manual) Eosinophils # (Manual) Nucleated RBC % Basophils # (Manual) PT INR APTT Heparin Anti-Xa Level ABG pH POC ABG pO2 ABG pO2 ABG HCO3 ABG O2 Saturation ABG Base Excess POC ABG pCO2 ABG Hemoglobin ABG Oxyhemoglobin ABG Glucose Oxyhemoglobin Sodium Potassium Chloride Carbon Dioxide BUN Creatinine Glucose POC Glucose 147 H 140 H 159 H Lactic Acid Calcium Phosphorus Magnesium AST ALT Lactate Dehydrogenase CK-MB (CK-2) C-Reactive Protein NT-Pro-B Natriuret Pep Total Protein Albumin Arterial Blood Glucose Urine WBC (Auto) 01/15/20 01/15/20 01/16/20 12:52 17:43 00:32 WBC RBC Hgb Hct MCHC RDW MCV MCH Lymph % (Auto) [place] % (Auto) [place] # Eos # Lymph # (Auto) [place] # (Auto) Eos # (Auto) Seg Neutrophils % Seg Neuts % (Manual) Baso # (Auto) Lymphocytes % (Manual) Monocytes % (Manual) Eosinophils % (Manual) Basophils % (Manual) Seg Neutrophils # Seg Neutrophils # Man Lymphocytes # (Manual) Monocytes # (Manual) Eosinophils # (Manual) Nucleated RBC % Basophils # (Manual) PT INR APTT Heparin Anti-Xa Level ABG pH POC ABG pO2 ABG pO2 ABG HCO3 ABG O2 Saturation ABG Base Excess POC ABG pCO2 ABG Hemoglobin ABG Oxyhemoglobin ABG Glucose Oxyhemoglobin Sodium Potassium Chloride Carbon Dioxide BUN Creatinine Glucose POC Glucose 164 H 167 H 153 H Lactic Acid Calcium Phosphorus Magnesium AST ALT Lactate Dehydrogenase CK-MB (CK-2) C-Reactive Protein NT-Pro-B Natriuret Pep Total Protein Albumin Arterial Blood Glucose Urine WBC (Auto) 01/16/20 01/16/20 01/17/20 05:46 11:48 06:38 WBC RBC Hgb Hct MCHC RDW MCV MCH Lymph % (Auto) [place] % (Auto) [place] # Eos # Lymph # (Auto) [place] # (Auto) Eos # (Auto) Seg Neutrophils % Seg Neuts % (Manual) Baso # (Auto) Lymphocytes % (Manual) Monocytes % (Manual) Eosinophils % (Manual) Basophils % (Manual) Seg Neutrophils # Seg Neutrophils # Man Lymphocytes # (Manual) Monocytes # (Manual) Eosinophils # (Manual) Nucleated RBC % Basophils # (Manual) PT INR APTT Heparin Anti-Xa Level ABG pH POC ABG pO2 ABG pO2 ABG HCO3 ABG O2 Saturation ABG Base Excess POC ABG pCO2 ABG Hemoglobin ABG Oxyhemoglobin ABG Glucose Oxyhemoglobin Sodium Potassium Chloride Carbon Dioxide BUN Creatinine Glucose POC Glucose 163 H 155 H 116 H Lactic Acid Calcium Phosphorus Magnesium AST ALT Lactate Dehydrogenase CK-MB (CK-2) C-Reactive Protein NT-Pro-B Natriuret Pep Total Protein Albumin Arterial Blood Glucose Urine WBC (Auto) 01/17/20 01/17/20 01/18/20 11:36 17:43 00:12 WBC RBC Hgb Hct MCHC RDW MCV MCH Lymph % (Auto) [place] % (Auto) [place] # Eos # Lymph # (Auto) [place] # (Auto) Eos # (Auto) Seg Neutrophils % Seg Neuts % (Manual) Baso # (Auto) Lymphocytes % (Manual) Monocytes % (Manual) Eosinophils % (Manual) Basophils % (Manual) Seg Neutrophils # Seg Neutrophils # Man Lymphocytes # (Manual) Monocytes # (Manual) Eosinophils # (Manual) Nucleated RBC % Basophils # (Manual) PT INR APTT Heparin Anti-Xa Level ABG pH POC ABG pO2 ABG pO2 ABG HCO3 ABG O2 Saturation ABG Base Excess POC ABG pCO2 ABG Hemoglobin ABG Oxyhemoglobin ABG Glucose Oxyhemoglobin Sodium Potassium Chloride Carbon Dioxide BUN Creatinine Glucose POC Glucose 110 H 134 H 108 H Lactic Acid Calcium Phosphorus Magnesium AST ALT Lactate Dehydrogenase CK-MB (CK-2) C-Reactive Protein NT-Pro-B Natriuret Pep Total Protein Albumin Arterial Blood Glucose Urine WBC (Auto) 01/18/20 01/18/20 01/18/20 05:37 06:46 06:46 WBC RBC Hgb 10.1 L Hct 32.2 L MCHC 31 L RDW 18.1 H MCV 81 L MCH 25 L Lymph % (Auto) [place] % (Auto) Wilcox # Eos # Lymph # (Auto) [place] # (Auto) Eos # (Auto) Seg Neutrophils % 71.9 H Seg Neuts % (Manual) Baso # (Auto) Lymphocytes % (Manual) Monocytes % (Manual) Eosinophils % (Manual) Basophils % (Manual) Seg Neutrophils # Seg Neutrophils # Man Lymphocytes # (Manual) Monocytes # (Manual) Eosinophils # (Manual) Nucleated RBC % Basophils # (Manual) PT INR APTT Heparin Anti-Xa Level ABG pH POC ABG pO2 ABG pO2 ABG HCO3 ABG O2 Saturation ABG Base Excess POC ABG pCO2 ABG Hemoglobin ABG Oxyhemoglobin ABG Glucose Oxyhemoglobin Sodium Potassium Chloride Carbon Dioxide BUN Creatinine 0.7 L Glucose 155 H POC Glucose 168 H Lactic Acid Calcium Phosphorus Magnesium AST ALT Lactate Dehydrogenase CK-MB (CK-2) C-Reactive Protein NT-Pro-B Natriuret Pep Total Protein Albumin Arterial Blood Glucose Urine WBC (Auto) 01/18/20 01/18/20 01/18/20 12:05 17:14 23:28 WBC RBC Hgb Hct MCHC RDW MCV MCH Lymph % (Auto) [place] % (Auto) Wilcox # Eos # Lymph # (Auto) [place] # (Auto) Eos # (Auto) Seg Neutrophils % Seg Neuts % (Manual) Baso # (Auto) Lymphocytes % (Manual) Monocytes % (Manual) Eosinophils % (Manual) Basophils % (Manual) Seg Neutrophils # Seg Neutrophils # Man Lymphocytes # (Manual) Monocytes # (Manual) Eosinophils # (Manual) Nucleated RBC % Basophils # (Manual) PT INR APTT Heparin Anti-Xa Level ABG pH POC ABG pO2 ABG pO2 ABG HCO3 ABG O2 Saturation ABG Base Excess POC ABG pCO2 ABG Hemoglobin ABG Oxyhemoglobin ABG Glucose Oxyhemoglobin Sodium Potassium Chloride Carbon Dioxide BUN Creatinine Glucose POC Glucose 128 H 126 H 128 H Lactic Acid Calcium Phosphorus Magnesium AST ALT Lactate Dehydrogenase CK-MB (CK-2) C-Reactive Protein NT-Pro-B Natriuret Pep Total Protein Albumin Arterial Blood Glucose Urine WBC (Auto) 01/19/20 01/19/20 01/19/20 05:39 12:33 17:36 WBC RBC Hgb Hct MCHC RDW MCV MCH Lymph % (Auto) [place] % (Auto) [place] # Eos # Lymph # (Auto) [place] # (Auto) Eos # (Auto) Seg Neutrophils % Seg Neuts % (Manual) Baso # (Auto) Lymphocytes % (Manual) Monocytes % (Manual) Eosinophils % (Manual) Basophils % (Manual) Seg Neutrophils # Seg Neutrophils # Man Lymphocytes # (Manual) Monocytes # (Manual) Eosinophils # (Manual) Nucleated RBC % Basophils # (Manual) PT INR APTT Heparin Anti-Xa Level ABG pH POC ABG pO2 ABG pO2 ABG HCO3 ABG O2 Saturation ABG Base Excess POC ABG pCO2 ABG Hemoglobin ABG Oxyhemoglobin ABG Glucose Oxyhemoglobin Sodium Potassium Chloride Carbon Dioxide BUN Creatinine Glucose POC Glucose 164 H 171 H 152 H Lactic Acid Calcium Phosphorus Magnesium AST ALT Lactate Dehydrogenase CK-MB (CK-2) C-Reactive Protein NT-Pro-B Natriuret Pep Total Protein Albumin Arterial Blood Glucose Urine WBC (Auto) 01/20/20 01/20/20 01/20/20 00:12 05:20 05:35 WBC RBC Hgb 9.2 L Hct 29.4 L MCHC 31 L RDW 17.9 H MCV 81 L MCH 25 L Lymph % (Auto) [place] % (Auto) Wilcox # Eos # Lymph # (Auto) [place] # (Auto) Eos # (Auto) Seg Neutrophils % Seg Neuts % (Manual) Baso # (Auto) Lymphocytes % (Manual) Monocytes % (Manual) Eosinophils % (Manual) Basophils % (Manual) Seg Neutrophils # Seg Neutrophils # Man Lymphocytes # (Manual) Monocytes # (Manual) Eosinophils # (Manual) Nucleated RBC % Basophils # (Manual) PT INR APTT Heparin Anti-Xa Level ABG pH POC ABG pO2 ABG pO2 ABG HCO3 ABG O2 Saturation ABG Base Excess POC ABG pCO2 ABG Hemoglobin ABG Oxyhemoglobin ABG Glucose Oxyhemoglobin Sodium Potassium Chloride Carbon Dioxide BUN Creatinine Glucose POC Glucose 120 H 136 H Lactic Acid Calcium Phosphorus Magnesium AST ALT Lactate Dehydrogenase CK-MB (CK-2) C-Reactive Protein NT-Pro-B Natriuret Pep Total Protein Albumin Arterial Blood Glucose Urine WBC (Auto) 01/20/20 01/20/20 01/20/20 05:40 11:58 14:55 WBC RBC Hgb 9.0 L Hct 28.3 L MCHC RDW MCV MCH Lymph % (Auto) [place] % (Auto) Wilcox # Eos # Lymph # (Auto) [place] # (Auto) Eos # (Auto) Seg Neutrophils % Seg Neuts % (Manual) Baso # (Auto) Lymphocytes % (Manual) Monocytes % (Manual) Eosinophils % (Manual) Basophils % (Manual) Seg Neutrophils # Seg Neutrophils # Man Lymphocytes # (Manual) Monocytes # (Manual) Eosinophils # (Manual) Nucleated RBC % Basophils # (Manual) PT INR APTT Heparin Anti-Xa Level ABG pH POC ABG pO2 ABG pO2 ABG HCO3 ABG O2 Saturation ABG Base Excess POC ABG pCO2 ABG Hemoglobin ABG Oxyhemoglobin ABG Glucose Oxyhemoglobin Sodium Potassium Chloride Carbon Dioxide 32 H BUN 22 H Creatinine 0.7 L Glucose 128 H POC Glucose 152 H Lactic Acid Calcium Phosphorus Magnesium AST ALT Lactate Dehydrogenase CK-MB (CK-2) C-Reactive Protein NT-Pro-B Natriuret Pep Total Protein Albumin Arterial Blood Glucose Urine WBC (Auto) 01/20/20 01/20/20 01/20/20 14:55 18:14 21:35 WBC RBC Hgb Hct MCHC RDW MCV MCH Lymph % (Auto) [place] % (Auto) [place] # Eos # Lymph # (Auto) [place] # (Auto) Eos # (Auto) Seg Neutrophils % Seg Neuts % (Manual) Baso # (Auto) Lymphocytes % (Manual) Monocytes % (Manual) Eosinophils % (Manual) Basophils % (Manual) Seg Neutrophils # Seg Neutrophils # Man Lymphocytes # (Manual) Monocytes # (Manual) Eosinophils # (Manual) Nucleated RBC % Basophils # (Manual) PT 20.4 H INR 1.72 H APTT 40.6 H Heparin Anti-Xa Level > 2.00 H ABG pH POC ABG pO2 ABG pO2 ABG HCO3 ABG O2 Saturation ABG Base Excess POC ABG pCO2 ABG Hemoglobin ABG Oxyhemoglobin ABG Glucose Oxyhemoglobin Sodium Potassium Chloride Carbon Dioxide BUN Creatinine Glucose POC Glucose 150 H Lactic Acid Calcium Phosphorus Magnesium AST ALT Lactate Dehydrogenase CK-MB (CK-2) C-Reactive Protein NT-Pro-B Natriuret Pep Total Protein Albumin Arterial Blood Glucose Urine WBC (Auto) 01/21/20 01/21/20 01/21/20 00:30 05:47 05:59 WBC RBC Hgb Hct MCHC RDW MCV MCH Lymph % (Auto) [place] % (Auto) [place] # Eos # Lymph # (Auto) [place] # (Auto) Eos # (Auto) Seg Neutrophils % Seg Neuts % (Manual) Baso # (Auto) Lymphocytes % (Manual) Monocytes % (Manual) Eosinophils % (Manual) Basophils % (Manual) Seg Neutrophils # Seg Neutrophils # Man Lymphocytes # (Manual) Monocytes # (Manual) Eosinophils # (Manual) Nucleated RBC % Basophils # (Manual) PT INR APTT Heparin Anti-Xa Level 1.93 H ABG pH POC ABG pO2 ABG pO2 ABG HCO3 ABG O2 Saturation ABG Base Excess POC ABG pCO2 ABG Hemoglobin ABG Oxyhemoglobin ABG Glucose Oxyhemoglobin Sodium Potassium Chloride Carbon Dioxide BUN Creatinine Glucose POC Glucose 126 H 148 H Lactic Acid Calcium Phosphorus Magnesium AST ALT Lactate Dehydrogenase CK-MB (CK-2) C-Reactive Protein NT-Pro-B Natriuret Pep Total Protein Albumin Arterial Blood Glucose Urine WBC (Auto) 01/21/20 01/21/20 01/21/20 12:32 18:20 23:54 WBC RBC Hgb Hct MCHC RDW MCV MCH Lymph % (Auto) [place] % (Auto) Wilcox # Eos # Lymph # (Auto) [place] # (Auto) Eos # (Auto) Seg Neutrophils % Seg Neuts % (Manual) Baso # (Auto) Lymphocytes % (Manual) Monocytes % (Manual) Eosinophils % (Manual) Basophils % (Manual) Seg Neutrophils # Seg Neutrophils # Man Lymphocytes # (Manual) Monocytes # (Manual) Eosinophils # (Manual) Nucleated RBC % Basophils # (Manual) PT INR APTT Heparin Anti-Xa Level 1.28 H ABG pH POC ABG pO2 ABG pO2 ABG HCO3 ABG O2 Saturation ABG Base Excess POC ABG pCO2 ABG Hemoglobin ABG Oxyhemoglobin ABG Glucose Oxyhemoglobin Sodium Potassium Chloride Carbon Dioxide BUN Creatinine Glucose POC Glucose 112 H 146 H Lactic Acid Calcium Phosphorus Magnesium AST ALT Lactate Dehydrogenase CK-MB (CK-2) C-Reactive Protein NT-Pro-B Natriuret Pep Total Protein Albumin Arterial Blood Glucose Urine WBC (Auto) 01/22/20 01/22/20 01/22/20 04:45 04:45 05:48 WBC RBC Hgb 9.3 L Hct 29.0 L MCHC RDW MCV MCH Lymph % (Auto) [place] % (Auto) [place] # Eos # Lymph # (Auto) [place] # (Auto) Eos # (Auto) Seg Neutrophils % Seg Neuts % (Manual) Baso # (Auto) Lymphocytes % (Manual) Monocytes % (Manual) Eosinophils % (Manual) Basophils % (Manual) Seg Neutrophils # Seg Neutrophils # Man Lymphocytes # (Manual) Monocytes # (Manual) Eosinophils # (Manual) Nucleated RBC % Basophils # (Manual) PT INR APTT Heparin Anti-Xa Level 1.34 H ABG pH POC ABG pO2 ABG pO2 ABG HCO3 ABG O2 Saturation ABG Base Excess POC ABG pCO2 ABG Hemoglobin ABG Oxyhemoglobin ABG Glucose Oxyhemoglobin Sodium Potassium Chloride Carbon Dioxide BUN Creatinine Glucose POC Glucose 142 H Lactic Acid Calcium Phosphorus Magnesium AST ALT Lactate Dehydrogenase CK-MB (CK-2) C-Reactive Protein NT-Pro-B Natriuret Pep Total Protein Albumin Arterial Blood Glucose Urine WBC (Auto) 01/22/20 01/22/20 01/22/20 08:09 08:22 09:58 WBC RBC Hgb Hct MCHC RDW MCV MCH Lymph % (Auto) [place] % (Auto) [place] # Eos # Lymph # (Auto) [place] # (Auto) Eos # (Auto) Seg Neutrophils % Seg Neuts % (Manual) Baso # (Auto) Lymphocytes % (Manual) Monocytes % (Manual) Eosinophils % (Manual) Basophils % (Manual) Seg Neutrophils # Seg Neutrophils # Man Lymphocytes # (Manual) Monocytes # (Manual) Eosinophils # (Manual) Nucleated RBC % Basophils # (Manual) PT 16.9 H INR 1.34 H APTT Heparin Anti-Xa Level ABG pH POC ABG pO2 ABG pO2 ABG HCO3 ABG O2 Saturation ABG Base Excess POC ABG pCO2 ABG Hemoglobin ABG Oxyhemoglobin ABG Glucose Oxyhemoglobin Sodium Potassium Chloride 97.8 L Carbon Dioxide BUN 29 H Creatinine Glucose 128 H POC Glucose 131 H Lactic Acid Calcium Phosphorus Magnesium AST ALT Lactate Dehydrogenase CK-MB (CK-2) C-Reactive Protein NT-Pro-B Natriuret Pep Total Protein Albumin Arterial Blood Glucose Urine WBC (Auto) 01/22/20 01/22/20 01/22/20 12:44 16:13 18:18 WBC RBC Hgb Hct MCHC RDW MCV MCH Lymph % (Auto) [place] % (Auto) [place] # Eos # Lymph # (Auto) [place] # (Auto) Eos # (Auto) Seg Neutrophils % Seg Neuts % (Manual) Baso # (Auto) Lymphocytes % (Manual) Monocytes % (Manual) Eosinophils % (Manual) Basophils % (Manual) Seg Neutrophils # Seg Neutrophils # Man Lymphocytes # (Manual) Monocytes # (Manual) Eosinophils # (Manual) Nucleated RBC % Basophils # (Manual) PT INR APTT Heparin Anti-Xa Level ABG pH POC ABG pO2 ABG pO2 ABG HCO3 ABG O2 Saturation ABG Base Excess POC ABG pCO2 ABG Hemoglobin ABG Oxyhemoglobin ABG Glucose Oxyhemoglobin Sodium Potassium Chloride Carbon Dioxide BUN Creatinine Glucose POC Glucose 156 H 133 H 155 H Lactic Acid Calcium Phosphorus Magnesium AST ALT Lactate Dehydrogenase CK-MB (CK-2) C-Reactive Protein NT-Pro-B Natriuret Pep Total Protein Albumin Arterial Blood Glucose Urine WBC (Auto) 01/22/20 01/23/20 01/23/20 23:22 05:37 12:59 WBC RBC Hgb Hct MCHC RDW MCV MCH Lymph % (Auto) [place] % (Auto) Wilcox # Eos # Lymph # (Auto) [place] # (Auto) Eos # (Auto) Seg Neutrophils % Seg Neuts % (Manual) Baso # (Auto) Lymphocytes % (Manual) Monocytes % (Manual) Eosinophils % (Manual) Basophils % (Manual) Seg Neutrophils # Seg Neutrophils # Man Lymphocytes # (Manual) Monocytes # (Manual) Eosinophils # (Manual) Nucleated RBC % Basophils # (Manual) PT INR APTT Heparin Anti-Xa Level ABG pH POC ABG pO2 ABG pO2 ABG HCO3 ABG O2 Saturation ABG Base Excess POC ABG pCO2 ABG Hemoglobin ABG Oxyhemoglobin ABG Glucose Oxyhemoglobin Sodium Potassium Chloride Carbon Dioxide BUN Creatinine Glucose POC Glucose 148 H 163 H 175 H Lactic Acid Calcium Phosphorus Magnesium AST ALT Lactate Dehydrogenase CK-MB (CK-2) C-Reactive Protein NT-Pro-B Natriuret Pep Total Protein Albumin Arterial Blood Glucose Urine WBC (Auto) 01/23/20 01/23/20 01/24/20 17:28 23:56 04:30 WBC RBC 3.46 L Hgb 8.8 L Hct 27.8 L MCHC RDW 18.2 H MCV 81 L MCH 25 L Lymph % (Auto) [place] % (Auto) 7.8 H [place] # Eos # Lymph # (Auto) [place] # (Auto) Eos # (Auto) Seg Neutrophils % Seg Neuts % (Manual) Baso # (Auto) Lymphocytes % (Manual) Monocytes % (Manual) Eosinophils % (Manual) Basophils % (Manual) Seg Neutrophils # Seg Neutrophils # Man Lymphocytes # (Manual) Monocytes # (Manual) Eosinophils # (Manual) Nucleated RBC % Basophils # (Manual) PT INR APTT Heparin Anti-Xa Level ABG pH POC ABG pO2 ABG pO2 ABG HCO3 ABG O2 Saturation ABG Base Excess POC ABG pCO2 ABG Hemoglobin ABG Oxyhemoglobin ABG Glucose Oxyhemoglobin Sodium Potassium Chloride Carbon Dioxide BUN Creatinine Glucose POC Glucose 165 H 177 H Lactic Acid Calcium Phosphorus Magnesium AST ALT Lactate Dehydrogenase CK-MB (CK-2) C-Reactive Protein NT-Pro-B Natriuret Pep Total Protein Albumin Arterial Blood Glucose Urine WBC (Auto) 01/24/20 01/24/20 01/24/20 04:30 07:18 12:06 WBC RBC Hgb Hct MCHC RDW MCV MCH Lymph % (Auto) Wilcox % (Auto) Wilcox # Eos # Lymph # (Auto) Wilcox # (Auto) Eos # (Auto) Seg Neutrophils % Seg Neuts % (Manual) Baso # (Auto) Lymphocytes % (Manual) Monocytes % (Manual) Eosinophils % (Manual) Basophils % (Manual) Seg Neutrophils # Seg Neutrophils # Man Lymphocytes # (Manual) Monocytes # (Manual) Eosinophils # (Manual) Nucleated RBC % Basophils # (Manual) PT INR APTT Heparin Anti-Xa Level ABG pH POC ABG pO2 ABG pO2 ABG HCO3 ABG O2 Saturation ABG Base Excess POC ABG pCO2 ABG Hemoglobin ABG Oxyhemoglobin ABG Glucose Oxyhemoglobin Sodium Potassium Chloride 97.9 L Carbon Dioxide BUN 31 H Creatinine Glucose 146 H POC Glucose 151 H 133 H Lactic Acid Calcium Phosphorus Magnesium AST ALT Lactate Dehydrogenase CK-MB (CK-2) C-Reactive Protein NT-Pro-B Natriuret Pep Total Protein Albumin Arterial Blood Glucose Urine WBC (Auto) 01/24/20 01/25/20 01/25/20 17:36 00:08 04:25 WBC RBC 3.50 L Hgb 8.7 L Hct 27.9 L MCHC 31 L RDW 18.2 H MCV 80 L MCH 25 L Lymph % (Auto) Wilcox % (Auto) 8.5 H Wilcox # Eos # Lymph # (Auto) Wilcox # (Auto) Eos # (Auto) Seg Neutrophils % Seg Neuts % (Manual) Baso # (Auto) Lymphocytes % (Manual) Monocytes % (Manual) Eosinophils % (Manual) Basophils % (Manual) Seg Neutrophils # Seg Neutrophils # Man Lymphocytes # (Manual) Monocytes # (Manual) Eosinophils # (Manual) Nucleated RBC % Basophils # (Manual) PT INR APTT Heparin Anti-Xa Level ABG pH POC ABG pO2 ABG pO2 ABG HCO3 ABG O2 Saturation ABG Base Excess POC ABG pCO2 ABG Hemoglobin ABG Oxyhemoglobin ABG Glucose Oxyhemoglobin Sodium Potassium Chloride Carbon Dioxide BUN Creatinine Glucose POC Glucose 133 H 129 H Lactic Acid Calcium Phosphorus Magnesium AST ALT Lactate Dehydrogenase CK-MB (CK-2) C-Reactive Protein NT-Pro-B Natriuret Pep Total Protein Albumin Arterial Blood Glucose Urine WBC (Auto) 01/25/20 01/25/20 01/25/20 04:25 05:38 11:52 WBC RBC Hgb Hct MCHC RDW MCV MCH Lymph % (Auto) Wilcox % (Auto) Wilcox # Eos # Lymph # (Auto) Wilcox # (Auto) Eos # (Auto) Seg Neutrophils % Seg Neuts % (Manual) Baso # (Auto) Lymphocytes % (Manual) Monocytes % (Manual) Eosinophils % (Manual) Basophils % (Manual) Seg Neutrophils # Seg Neutrophils # Man Lymphocytes # (Manual) Monocytes # (Manual) Eosinophils # (Manual) Nucleated RBC % Basophils # (Manual) PT INR APTT Heparin Anti-Xa Level ABG pH POC ABG pO2 ABG pO2 ABG HCO3 ABG O2 Saturation ABG Base Excess POC ABG pCO2 ABG Hemoglobin ABG Oxyhemoglobin ABG Glucose Oxyhemoglobin Sodium Potassium Chloride Carbon Dioxide BUN 30 H Creatinine Glucose 134 H POC Glucose 129 H 134 H Lactic Acid Calcium Phosphorus Magnesium AST ALT Lactate Dehydrogenase CK-MB (CK-2) C-Reactive Protein NT-Pro-B Natriuret Pep Total Protein Albumin Arterial Blood Glucose Urine WBC (Auto) 01/25/20 01/25/20 01/26/20 17:13 21:02 00:59 WBC RBC Hgb Hct MCHC RDW MCV MCH Lymph % (Auto) Wilcox % (Auto) Wilcox # Eos # Lymph # (Auto) Wilcox # (Auto) Eos # (Auto) Seg Neutrophils % Seg Neuts % (Manual) Baso # (Auto) Lymphocytes % (Manual) Monocytes % (Manual) Eosinophils % (Manual) Basophils % (Manual) Seg Neutrophils # Seg Neutrophils # Man Lymphocytes # (Manual) Monocytes # (Manual) Eosinophils # (Manual) Nucleated RBC % Basophils # (Manual) PT INR APTT Heparin Anti-Xa Level ABG pH POC ABG pO2 ABG pO2 57.5 L ABG HCO3 31.7 H ABG O2 Saturation 90.3 L ABG Base Excess 6.6 H POC ABG pCO2 ABG Hemoglobin 13.0 L ABG Oxyhemoglobin ABG Glucose Oxyhemoglobin 87.5 L Sodium Potassium Chloride Carbon Dioxide BUN Creatinine Glucose POC Glucose 124 H 196 H Lactic Acid Calcium Phosphorus Magnesium AST ALT Lactate Dehydrogenase CK-MB (CK-2) C-Reactive Protein NT-Pro-B Natriuret Pep Total Protein Albumin Arterial Blood Glucose Urine WBC (Auto) 01/26/20 01/26/20 01/26/20 03:20 05:46 12:46 WBC RBC Hgb 9.2 L Hct 29.4 L MCHC RDW MCV MCH Lymph % (Auto) Wilcox % (Auto) Wilcox # Eos # Lymph # (Auto) Wilcox # (Auto) Eos # (Auto) Seg Neutrophils % Seg Neuts % (Manual) Baso # (Auto) Lymphocytes % (Manual) Monocytes % (Manual) Eosinophils % (Manual) Basophils % (Manual) Seg Neutrophils # Seg Neutrophils # Man Lymphocytes # (Manual) Monocytes # (Manual) Eosinophils # (Manual) Nucleated RBC % Basophils # (Manual) PT INR APTT Heparin Anti-Xa Level ABG pH POC ABG pO2 ABG pO2 ABG HCO3 ABG O2 Saturation ABG Base Excess POC ABG pCO2 ABG Hemoglobin ABG Oxyhemoglobin ABG Glucose Oxyhemoglobin Sodium Potassium Chloride Carbon Dioxide BUN Creatinine Glucose POC Glucose 141 H 122 H Lactic Acid Calcium Phosphorus Magnesium AST ALT Lactate Dehydrogenase CK-MB (CK-2) C-Reactive Protein NT-Pro-B Natriuret Pep Total Protein Albumin Arterial Blood Glucose Urine WBC (Auto) 01/26/20 01/26/20 01/27/20 18:03 23:55 04:47 WBC RBC Hgb Hct MCHC RDW MCV MCH Lymph % (Auto) Wilcox % (Auto) Wilcox # Eos # Lymph # (Auto) Wilcox # (Auto) Eos # (Auto) Seg Neutrophils % Seg Neuts % (Manual) Baso # (Auto) Lymphocytes % (Manual) Monocytes % (Manual) Eosinophils % (Manual) Basophils % (Manual) Seg Neutrophils # Seg Neutrophils # Man Lymphocytes # (Manual) Monocytes # (Manual) Eosinophils # (Manual) Nucleated RBC % Basophils # (Manual) PT INR APTT Heparin Anti-Xa Level ABG pH POC ABG pO2 ABG pO2 ABG HCO3 ABG O2 Saturation ABG Base Excess POC ABG pCO2 ABG Hemoglobin ABG Oxyhemoglobin ABG Glucose Oxyhemoglobin Sodium Potassium Chloride Carbon Dioxide BUN 30 H Creatinine 0.7 L Glucose 135 H POC Glucose 142 H 159 H Lactic Acid Calcium Phosphorus Magnesium AST ALT Lactate Dehydrogenase CK-MB (CK-2) C-Reactive Protein NT-Pro-B Natriuret Pep Total Protein Albumin Arterial Blood Glucose Urine WBC (Auto) 01/27/20 01/27/20 01/27/20 05:43 12:06 17:16 WBC RBC Hgb Hct MCHC RDW MCV MCH Lymph % (Auto) [place] % (Auto) Wilcox # Eos # Lymph # (Auto) Wilcox # (Auto) Eos # (Auto) Seg Neutrophils % Seg Neuts % (Manual) Baso # (Auto) Lymphocytes % (Manual) Monocytes % (Manual) Eosinophils % (Manual) Basophils % (Manual) Seg Neutrophils # Seg Neutrophils # Man Lymphocytes # (Manual) Monocytes # (Manual) Eosinophils # (Manual) Nucleated RBC % Basophils # (Manual) PT INR APTT Heparin Anti-Xa Level ABG pH POC ABG pO2 ABG pO2 ABG HCO3 ABG O2 Saturation ABG Base Excess POC ABG pCO2 ABG Hemoglobin ABG Oxyhemoglobin ABG Glucose Oxyhemoglobin Sodium Potassium Chloride Carbon Dioxide BUN Creatinine Glucose POC Glucose 143 H 142 H 128 H Lactic Acid Calcium Phosphorus Magnesium AST ALT Lactate Dehydrogenase CK-MB (CK-2) C-Reactive Protein NT-Pro-B Natriuret Pep Total Protein Albumin Arterial Blood Glucose Urine WBC (Auto) 01/27/20 01/28/20 01/28/20 23:55 04:37 05:55 WBC RBC Hgb 9.4 L Hct 29.9 L MCHC RDW MCV MCH Lymph % (Auto) Wilcox % (Auto) Wilcox # Eos # Lymph # (Auto) [place] # (Auto) Eos # (Auto) Seg Neutrophils % Seg Neuts % (Manual) Baso # (Auto) Lymphocytes % (Manual) Monocytes % (Manual) Eosinophils % (Manual) Basophils % (Manual) Seg Neutrophils # Seg Neutrophils # Man Lymphocytes # (Manual) Monocytes # (Manual) Eosinophils # (Manual) Nucleated RBC % Basophils # (Manual) PT INR APTT Heparin Anti-Xa Level ABG pH POC ABG pO2 ABG pO2 ABG HCO3 ABG O2 Saturation ABG Base Excess POC ABG pCO2 ABG Hemoglobin ABG Oxyhemoglobin ABG Glucose Oxyhemoglobin Sodium Potassium Chloride Carbon Dioxide BUN Creatinine Glucose POC Glucose 166 H 169 H Lactic Acid Calcium Phosphorus Magnesium AST ALT Lactate Dehydrogenase CK-MB (CK-2) C-Reactive Protein NT-Pro-B Natriuret Pep Total Protein Albumin Arterial Blood Glucose Urine WBC (Auto) 01/28/20 01/28/20 01/28/20 11:58 17:26 23:46 WBC RBC Hgb Hct MCHC RDW MCV MCH Lymph % (Auto) [place] % (Auto) Wilcox # Eos # Lymph # (Auto) [place] # (Auto) Eos # (Auto) Seg Neutrophils % Seg Neuts % (Manual) Baso # (Auto) Lymphocytes % (Manual) Monocytes % (Manual) Eosinophils % (Manual) Basophils % (Manual) Seg Neutrophils # Seg Neutrophils # Man Lymphocytes # (Manual) Monocytes # (Manual) Eosinophils # (Manual) Nucleated RBC % Basophils # (Manual) PT INR APTT Heparin Anti-Xa Level ABG pH POC ABG pO2 ABG pO2 ABG HCO3 ABG O2 Saturation ABG Base Excess POC ABG pCO2 ABG Hemoglobin ABG Oxyhemoglobin ABG Glucose Oxyhemoglobin Sodium Potassium Chloride Carbon Dioxide BUN Creatinine Glucose POC Glucose 130 H 126 H 150 H Lactic Acid Calcium Phosphorus Magnesium AST ALT Lactate Dehydrogenase CK-MB (CK-2) C-Reactive Protein NT-Pro-B Natriuret Pep Total Protein Albumin Arterial Blood Glucose Urine WBC (Auto) 01/29/20 01/29/20 01/29/20 04:55 06:00 12:28 WBC RBC Hgb Hct MCHC RDW MCV MCH Lymph % (Auto) [place] % (Auto) Wilcox # Eos # Lymph # (Auto) [place] # (Auto) Eos # (Auto) Seg Neutrophils % Seg Neuts % (Manual) Baso # (Auto) Lymphocytes % (Manual) Monocytes % (Manual) Eosinophils % (Manual) Basophils % (Manual) Seg Neutrophils # Seg Neutrophils # Man Lymphocytes # (Manual) Monocytes # (Manual) Eosinophils # (Manual) Nucleated RBC % Basophils # (Manual) PT INR APTT Heparin Anti-Xa Level ABG pH POC ABG pO2 ABG pO2 ABG HCO3 ABG O2 Saturation ABG Base Excess POC ABG pCO2 ABG Hemoglobin ABG Oxyhemoglobin ABG Glucose Oxyhemoglobin Sodium Potassium Chloride Carbon Dioxide 34 H BUN Creatinine 0.6 L Glucose 152 H POC Glucose 157 H 156 H Lactic Acid Calcium Phosphorus Magnesium AST ALT Lactate Dehydrogenase CK-MB (CK-2) C-Reactive Protein NT-Pro-B Natriuret Pep Total Protein Albumin Arterial Blood Glucose Urine WBC (Auto) Chest x-ray: image reviewed (volume overload superimposed over chronic fibrosis changes) Allied health notes reviewed: nursing
[2020-01-29] MEDS: ONDANSETRON 4 MG/2 ML INJ IV PRN (16:22)
[2020-01-29] MEDS: TAMSULOSIN 0.4 MG CAP PO SCH (21:35)
[2020-01-29] MEDS: POLYETHYLENE GLYCOL 3350 17 GM POWDER PO SCH (21:41)
[2020-01-29] MEDS: LORazepam 2 MG/ML VIAL IV PRN (22:09)
[2020-01-30] MEDS: METOPROLOL TARTRATE 25 MG TAB PO SCH ×4 (01:00→18:15)
[2020-01-30] MEDS: METOPROLOL TARTRATE 5 MG/5 ML INJ IV PRN ×2 (03:30→16:03)
[2020-01-30] MEDS: FUROSEMIDE 40 MG/4 ML INJ IV SCH ×2 (06:34→18:16)
[2020-01-30] MEDS: NITROGLYCERIN 0.4 MG PATCH 24HR TD SCH (06:35)
[2020-01-30] MEDS: MIDODRINE 5 MG TAB PO SCH ×3 (08:19→16:03)
[2020-01-30] MEDS: GLYCOPYRROLATE 2 MG TAB PO SCH ×3 (08:19→20:00)
--- NOTE | 2020-01-30 08:59 | Progress Note ---
Assessment and Plan Assessment and plan: --Ischemic cardiomyopathy Cardiology is following, status post cardiac catheterization on 01/22/2020; Cor onary artery disease status post PCI and stent to the LAD Continue current cardiac medications --Acute on chronic hypoxemic respiratory failure; Patient has tracheostomy on vent Continue nebulizers, , trach care Wean off ventilator as tolerated Pulmonary critical following --Acute exacerbation of COPD; Patient is currently on ventilatory support Continue nebulizers --Left lower lobe PE; Continue Eliquis, ventilatory support --Acute right lower extremity DVT; Patient is on Eliquis --Bilateral multifocal pneumonia/community-acquired Completed antibiotics, improved --Severe sepsis/bilateral pneumonia: Completed antibiotics COVID-19 test; 11/24/2019; negative 11/26/2019; negative 12/29/2019: Negative --Paroxysmal atrial fibrillation; Now rate controlled, Stable on amiodarone and Eliquis --Acute on chronic combined systolic and diastolic congestive heart failure Ischemic cardiomyopathy left ventricular ejection fraction 40 to 45% --H/o CAD [[facility] 12/2018 in-stent restenosis] Patient is stable on current cardiac medications Patient is a 64-year-old male with known history of hypertension, COPD, history of coronary artery disease, CHF with ejection fraction of 20 to 25% in August 2018 presenting to the emergency room via EMS complaining of shortness of breath. Patient was found to be hypoxic and in respiratory distress. Patient was placed on CPAP in route to the hospital. Patient remained hypoxic on CPAP BiPAP ,subsequently was intubated. Work-up in the emergency room including chest x-ray reveals bilateral pneumonia. He had an elevated white count of 14 and also had an elevated BNP. sputum cultures positive for Pseudomonas, ID treated with cefepime and Vanco. His hospital course became complicated with acute PE, DVT, paroxysmal atrial fib - placed on chronic anticoagulation. Patient was difficult to wean off, status post trach and PEG, remains on mechanical ventilation with trach tube. He then developed partial small bowel obstruction valuated by general surgeon symptom improved with medical Mx, patient was briefly weaned off ventilatory support however, was in respiratory failure requiring full ventilatory support. Cardiac catheterization on 01/22/2020. No new issues overnight. --Hypertensive emergency; present on admission Reasonable blood pressures, continue current antihypertensives As needed medications --History of alcohol abuse/alcohol withdrawal; Was on CIWA protocol, now stable --Oropharyngeal dysphagia; status post PEG placement Continue PEG feeds per protocol --History of partial small bowel obstruction; resolved Surgery evaluated. --Obesity; BMI 34.7 Patient needs weight reduction when medically stable --Severe protein calorie malnutrition/hypoalbuminemia Nutrition supplements, dietitian following, PEG feeds --DVT prophylaxis;Eliquis --Full CODE STATUS 01/05; Pt stable. NGT output 650cc over 24 hours, bilious. No f/c, WBC within normal limits. cont NG suction and cont to hold TF 01/06: Abs series - mild improvement in small bowel distension in mid abdomen, normal gas/stool pattern in colon. NGT in duodenum. Continue to hold tube feeding, maintain NG tube with low intermittent suction. Patient's was updated by phone. Continue to provide supportive care and monitor clinically. 01/07: +BMs today and NGT/PEG output appears more gastric today. Plan to clamp NGT, if tolerates start TF from tomorrow. cont supportive care. 01/08; Gastric output decreased over last 24 hours. NGT has been clamped x 24 hours. plan to dc NGT and to start TTF via PEG - vital HF @10cc/hr 01/09: clinically stable, tolerating TF. monitor BMP, wean off from vent as tolerated clinically stable, on TF. wean off vent as tolerated 01/11: wean off from vent, cont to monitor, on TF 01/12: wean off from vent, cont to monitor, on TF. need placement - unfunded 01/13; remains on ventilatory support, unable to wean, DC planning possible LT AC, unfunded 01/14; patient of ventilatory support, T-piece tracheostomy on oxygen, LTAC placement per case management 01/16; tracheostomy, patient on full ventilatory support, wean off vent support as tolerated, pending LTAC placement, social financial issues 01/17; awaiting LTAC placement, insurance and financial issues 01/18; patient tracheostomy remains on ventilatory support 01/19; wean off ventilator as tolerated 01/20; remains on ventilatory support, patient complains of intermittent chest pain, cardiology recommend left heart catheterization tomorrow 01/22/2020. Patient for left heart catheterization per cardiology. Patient remains on AC mode ventilation rate 12, tidal volume 450, FiO2 30% and PEEP of 6. Continue tracheostomy care, airway management and secretion control. 01/23/2020. Cardiac catheterization completed yesterday revealed widely patent previous LAD stent with mild nonobstructive atherosclerosis of the right mid coronary artery and rest of the coronary system was without significant atherosclerosis. The left ventricle ejection fraction was mildly impaired at 40 to 45%. There was some hypokinesis of the basal inferior wall suggestive of previous or recent infarct. Continue GDMT for coronary artery disease including beta blockers, topical nitrates, statin and Plavix. Continue Eliquis for paroxysmal atrial fibrillation and PE. Continue diuresis with Lasix and follow electrolytes closely. Continue Robinul and scopolamine for secretion control and daily SBT per pulmonary. Also, continue bronchodilators and routine trach care/airway management. T-piece trials per pulmonary as tolerated. 01/24/2020. Recent cardiac catheterization has documented widely patent left anterior descending artery stent with minimal nonobstructive diffuse coronary artery disease in the rest of the coronary arteries. Evidence of ischemic cardiomyopathy with inferior wall hypokinesis. Continue with guideline directed medical therapy. Continue Robinul and scopolamine for secretion control and daily SBT per pulmonary. Continue bronchodilators and routine trach care/airway management. T-piece trials per pulmonary as tolerated. 01/25/2020. Continue with guideline directed medical therapy for systolic heart failure. Cardiac catheterization revealed evidence of ischemic cardiomyopathy with inferior wall hypokinesis (EF 40-45%). Patient currently on T-piece with oxygen 10 L/min FiO2 40%. Continue Robinul and scopolamine for secretion control. Continue bronchodilators and routine trach care/airway management. 01/26/2020;Continue with guideline directed medical therapy for systolic heart failure. Cardiac catheterization revealed evidence of ischemic cardiomyopathy with inferior wall hypokinesis (EF 40-45%). Patient currently on T-piece with oxygen 10 L/min FiO2 40%. Continue Robinul and scopolamine for secretion control. Continue bronchodilators and routine trach care/airway management. 01/27/2020Continue with guideline directed medical therapy for systolic heart failure. Cardiac catheterization revealed evidence of ischemic cardiomyopathy with inferior wall hypokinesis (EF 40-45%). Patient currently on T-piece with oxygen 10 L/min FiO2 40%. Continue Robinul and scopolamine for secretion control. Continue bronchodilators and routine trach care/airway management. 01/28/2020Continue with guideline directed medical therapy for systolic heart failure. Cardiac catheterization revealed evidence of ischemic cardiomyopathy with inferior wall hypokinesis (EF 40-45%). Patient currently on T-piece with oxygen 10 L/min FiO2 40%. Continue Robinul and scopolamine for secretion control. Continue bronchodilators and routine trach care/airway management. 01/29/2020 Continue with guideline directed medical therapy for systolic heart failure. Cardiac catheterization revealed evidence of ischemic cardiomyopathy with inferior wall hypokinesis (EF 40-45%). Patient currently on T-piece with oxygen 10 L/min FiO2 40%. Continue Robinul and scopolamine for secretion control. Continue bronchodilators and routine trach care/airway management. 01/30/2020 Continue with guideline directed medical therapy for systolic heart failure. Cardiac catheterization revealed evidence of ischemic cardiomyopathy with inferior wall hypokinesis (EF 40-45%). Patient currently on T-piece with oxygen 10 L/min FiO2 40%. Continue Robinul and scopolamine for secretion control. Continue bronchodilators and routine trach care/airway management. Patient has recurrent A. fib and currently on amiodarone, continue beta-hebert, and Eliquis. Patient is on IV diuresis The high probability of a clinically significant, sudden or life threatening deterioration of the [Respiratory, cardiovascular & neurological] system(s) required my full and d irect attention, intervention and personal management. The aggregate critical care time was [32] minutes without overlap. Time includes spent on [x] Data Review and interpretation [x] Patient assessment and monitoring of vital signs [x] Documentation [x] Medication orders and management History Interval history: Patient was seen and evaluated this morning Patient is intubated and he open his eyes Patient is on trach Hospitalist Physical - Physical exam Narrative exam: Patient is on trach Patient is obese Vital signs as documented. Head exam is unremarkable. No scleral icterus . Neck is without jugular venous distension, thyromegaly, or carotid bruits. Lungs intubated and on mechanical ventilator Cardiac exam reveals regular rate and Rhythm. Abdominal exam reveals normal bowel sounds, nontender, no organomegaly. Extremities are nonedematous and both femoral and pedal pulses are normal. [employer]: Open his eyes on command. - Constitutional Vitals: Temp Pulse Resp BP Pulse Ox 96.5 F L 130 H 22 131/91 94 01/30/20 04:00 01/30/20 06:00 01/30/20 06:00 01/30/20 06:00 01/30/20 06:00 General appearance: Present: well-nourished, obese, other (Tracheostomy on vent) HEART Score - HEART Score Troponin: Troponin T < 0.010 ng/mL (0.00-0.029) 01/19/20 01:35 Results - Labs CBC & Chem 7: 01/28/20 04:37 01/29/20 04:55 Labs: Laboratory Last Values WBC 8.9 K/mm3 (4.5-11.0) 01/25/20 04:25 RBC 3.50 M/mm3 (3.65-5.03) L 01/25/20 04:25 Hgb 9.4 gm/dl (11.8-15.2) L 01/28/20 04:37 Hct 29.9 % (35.5-45.6) L 01/28/20 04:37 MCV 80 fl (84-94) L 01/25/20 04:25 MCH 25 pg (28-32) L 01/25/20 04:25 MCHC 31 % (32-34) L 01/25/20 04:25 RDW 18.2 % (13.2-15.2) H 01/25/20 04:25 Plt Count 228 K/mm3 (140-440) 01/28/20 04:37 Lymph % (Auto) 24.4 % (13.4-35.0) 01/25/20 04:25 Isabella % (Auto) 8.5 % (0.0-7.3) H 01/25/20 04:25 Eos % (Auto) 3.6 % (0.0-4.3) 01/25/20 04:25 Baso % (Auto) 0.7 % (0.0-1.8) 01/25/20 04:25 Lymph # (Auto) 2.2 K/mm3 (1.2-5.4) 01/25/20 04:25 Isabella # (Auto) 0.8 K/mm3 (0.0-0.8) 01/25/20 04:25 Eos # (Auto) 0.3 K/mm3 (0.0-0.4) 01/25/20 04:25 Baso # (Auto) 0.1 K/mm3 (0.0-0.1) 01/25/20 04:25 Add Manual Diff Complete 12/19/19 11:32 Total Counted 100 12/19/19 11:32 Seg Neutrophils % 62.8 % (40.0-70.0) 01/25/20 04:25 Seg Neuts % (Manual) 82.0 % (40.0-70.0) H 12/19/19 11:32 Band Neutrophils % 0 % 12/19/19 11:32 Lymphocytes % (Manual) 10.0 % (13.4-35.0) L 12/19/19 11:32 Reactive Lymphs % (Man) 0 % 12/19/19 11:32 Monocytes % (Manual) 6.0 % (0.0-7.3) 12/19/19 11:32 Eosinophils % (Manual) 2.0 % (0.0-4.3) 12/19/19 11:32 Basophils % (Manual) 0 % (0.0-1.8) 12/19/19 11:32 Metamyelocytes % 0 % 12/19/19 11:32 Myelocytes % 0 % 12/19/19 11:32 Promyelocytes % 0 % 12/19/19 11:32 Blast Cells % 0 % 12/19/19 11:32 Nucleated RBC % 1.0 % (0.0-0.9) H 12/19/19 11:32 Seg Neutrophils # 5.6 K/mm3 (1.8-7.7) 01/25/20 04:25 Seg Neutrophils # Man 12.0 K/mm3 (1.8-7.7) H 12/19/19 11:32 Band Neutrophils # 0.0 K/mm3 12/19/19 11:32 Lymphocytes # (Manual) 1.5 K/mm3 (1.2-5.4) 12/19/19 11:32 Abs React Lymphs (Man) 0.0 K/mm3 12/19/19 11:32 Monocytes # (Manual) 0.9 K/mm3 (0.0-0.8) H 12/19/19 11:32 Eosinophils # (Manual) 0.3 K/mm3 (0.0-0.4) 12/19/19 11:32 Basophils # (Manual) 0.0 K/mm3 (0.0-0.1) 12/19/19 11:32 Metamyelocytes # 0.0 K/mm3 12/19/19 11:32 Myelocytes # 0.0 K/mm3 12/19/19 11:32 Promyelocytes # 0.0 K/mm3 12/19/19 11:32 Blast Cells # 0.0 K/mm3 12/19/19 11:32 WBC Morphology Not Reportable 12/19/19 11:32 Hypersegmented Neuts Not Reportable 12/19/19 11:32 Hyposegmented Neuts Not Reportable 12/19/19 11:32 Hypogranular Neuts Not Reportable 12/19/19 11:32 Smudge Cells Not Reportable 12/19/19 11:32 Toxic Granulation Not Reportable 12/19/19 11:32 Toxic Vacuolation Not Reportable 12/19/19 11:32 Dohle Bodies Not Reportable 12/19/19 11:32 Pelger-Huet Anomaly Not Reportable 12/19/19 11:32 Hector Rods Not Reportable 12/19/19 11:32 Platelet Estimate Consistent w auto 12/19/19 11:32 Clumped Platelets Not Reportable 12/19/19 11:32 Plt Clumps, EDTA Not Reportable 12/19/19 11:32 Large Platelets Not Reportable 12/19/19 11:32 Giant Platelets Not Reportable 12/19/19 11:32 Platelet Satelliting Not Reportable 12/19/19 11:32 Plt Morphology Comment Not Reportable 12/19/19 11:32 RBC Morphology Not Reportable 12/19/19 11:32 Dimorphic RBCs Not Reportable 12/19/19 11:32 Polychromasia Not Reportable 12/19/19 11:32 Hypochromasia Few 12/19/19 11:32 Poikilocytosis Not Reportable 12/19/19 11:32 Anisocytosis 1+ 12/19/19 11:32 Microcytosis Few 12/19/19 11:32 Macrocytosis Few 12/19/19 11:32 Spherocytes Not Reportable 12/19/19 11:32 Pappenheimer Bodies Not Reportable 12/19/19 11:32 Sickle Cells Not Reportable 12/19/19 11:32 Target Cells Not Reportable 12/19/19 11:32 Tear Drop Cells Not Reportable 12/19/19 11:32 Ovalocytes Not Reportable 12/19/19 11:32 Helmet Cells Not Reportable 12/19/19 11:32 [place] Bodies Not Reportable 12/19/19 11:32 Almo Rings Not Reportable 12/19/19 11:32 [place] Cells Not Reportable 12/19/19 11:32 Bite Cells Not Reportable 12/19/19 11:32 Crenated Cell Not Reportable 12/19/19 11:32 Elliptocytes Not Reportable 12/19/19 11:32 Acanthocytes (Spur) Not Reportable 12/19/19 11:32 Rouleaux Not Reportable 12/19/19 11:32 Hemoglobin C Crystals Not Reportable 12/19/19 11:32 Schistocytes Not Reportable 12/19/19 11:32 Malaria parasites Not Reportable 12/19/19 11:32 Clifford Bodies Not Reportable 12/19/19 11:32 Hem Pathologist Commnt No 12/19/19 11:32 PT 16.9 Sec. (12.2-14.9) H 01/22/20 09:58 INR 1.34 (0.87-1.13) H 01/22/20 09:58 APTT 31.5 Sec. (24.2-36.6) 01/22/20 09:58 Heparin Anti-Xa Level 1.34 U.I./ml (0.3-0.7) H 01/22/20 04:45 ABG pH 7.447 pH Units (7.350-7.450) 01/25/20 21:02 POC ABG pCO2 45.6 mmHg (32.0-48.0) 01/12/20 13:58 ABG pCO2 47.0 mm Hg 01/25/20 21:02 POC ABG pO2 76.6 mmHg (83-108) L 01/12/20 13:58 ABG pO2 57.5 mm Hg (80.0-90.0) L 01/25/20 21:02 POC ABG HCO3 31.2 01/12/20 13:58 ABG HCO3 31.7 mmol/L (20.0-26.0) H 01/25/20 21:02 ABG O2 Saturation 90.3 % (95.0-99.0) L 01/25/20 21:02 ABG O2 Content 16.0 (0.0-44) 01/25/20 21:02 POC ABG Base Excess 6.5 01/12/20 13:58 ABG Base Excess 6.6 mmol/L (-2.0-3.0) H 01/25/20 21:02 ABG Hemoglobin 13.0 gm/dl (14.0-18.0) L 01/25/20 21:02 ABG Oxyhemoglobin 84 (94-98) L 12/22/19 03:22 ABG Carboxyhemoglobin 2.5 % (0.0-5.0) 01/25/20 21:02 ABG Methemoglobin 0.6 % (0.0-1.5) 01/25/20 21:02 ABG Sodium 136.8 mmol/L (136.0-145.0) 01/12/20 13:58 ABG Potassium 3.7 mmol/L (3.40-4.50) 01/12/20 13:58 ABG Chloride 103.0 mmol/L (98-107) 01/12/20 13:58 ABG Glucose 99 mg/dL (65-95) H 01/12/20 13:58 Oxyhemoglobin 87.5 % (95.0-99.0) L 01/25/20 21:02 Carboxyhemoglobin 0.7 (0.5-1.5) 12/22/19 03:22 FiO2 40 % 01/25/20 21:02 Sodium 143 mmol/L (137-145) 01/29/20 04:55 Potassium 3.9 mmol/L (3.6-5.0) 01/29/20 04:55 Chloride 100.7 mmol/L (98-107) 01/29/20 04:55 Carbon Dioxide 34 mmol/L (22-30) H 01/29/20 04:55 Anion Gap 12 mmol/L 01/29/20 04:55 BUN 20 mg/dL (9-20) 01/29/20 04:55 Creatinine 0.6 mg/dL (0.8-1.3) L 01/29/20 04:55 Estimated GFR > 60 ml/min 01/29/20 04:55 BUN/Creatinine Ratio 33 % 01/29/20 04:55 Glucose 152 mg/dL (75-100) H 01/29/20 04:55 POC Glucose 159 mg/dL (70-105) H 01/30/20 05:39 Lactic Acid 2.50 mmol/L (0.7-2.0) H* 11/24/19 10:37 Magnesium 2.60 mg/dL (1.7-2.3) H 12/07/19 12:41 Calcium 9.2 mg/dL (8.4-10.2) 01/29/20 04:55 Ferritin 84.4 ng/mL (30.0-300.0) 11/24/19 04:53 Direct Bilirubin < 0.2 mg/dL (0-0.2) 12/08/19 03:55 Indirect Bilirubin 0.2 mg/dL 12/08/19 03:55 Phosphorus 3.40 mg/dL (2.5-4.5) 01/12/20 12:01 Total Bilirubin 0.50 mg/dL (0.1-1.2) 01/12/20 00:23 Total Creatine Kinase 141 units/L (55-170) 11/24/19 02:53 CK-MB (CK-2) 4.3 ng/mL (0.0-4.0) H 11/24/19 02:53 AST 16 units/L (5-40) 01/12/20 00:23 ALT 22 units/L (7-56) 01/12/20 00:23 CK-MB (CK-2) Rel Index 3.0 (0-4) 11/24/19 02:53 Alkaline Phosphatase 59 units/L (35-129) 01/12/20 00:23 C-Reactive Protein 8.50 mg/dL (0.00-1.30) H 12/01/19 12:16 Lactate Dehydrogenase 228 units/L (91-180) H 12/19/19 04:45 Troponin T < 0.010 ng/mL (0.00-0.029) 01/19/20 01:35 NT-Pro-B Natriuret Pep 3866 pg/mL (0-900) H 01/01/20 10:40 Total Protein 6.3 g/dL (6.3-8.2) 01/12/20 00:23 Albumin 2.6 g/dL (3.9-5) L 01/12/20 00:23 Albumin/Globulin Ratio 0.7 % 01/12/20 00:23 Procalcitonin 0.76 ng/mL (<0.15) 01/01/20 10:40 Arterial Blood Glucose 99 mg/dL (65-95) H 01/12/20 13:58 Arterial Blood Ionized Calcium 4.8 mg/dL (4.6-5.3) 01/12/20 13:58 Urine Color Cecy (Yellow) 12/31/19 18:04 Urine Turbidity Clear (Clear) 12/31/19 18:04 Urine pH 5.0 (5.0-7.0) 12/31/19 18:04 Ur Specific [place] 1.023 (1.003-1.030) 12/31/19 18:04 Urine Protein <15 mg/dl mg/dL (Negative) 12/31/19 18:04 Urine Glucose (UA) Neg mg/dL (Negative) 12/31/19 18:04 Urine Ketones Neg mg/dL (Negative) 12/31/19 18:04 Urine Blood Neg (Negative) 12/31/19 18:04 Urine Bacteria (Auto) 1+ /HPF (Negative) 12/03/19 06:03 Urine Nitrite Neg (Negative) 12/31/19 18:04 Urine Bilirubin Neg (Negative) 12/31/19 18:04 Urine Urobilinogen 4.0 mg/dL (<2.0) 12/31/19 18:04 Ur Leukocyte Esterase Neg (Negative) 12/31/19 18:04 Urine WBC (Auto) 2.0 /HPF (0.0-6.0) 12/31/19 18:04 Urine RBC (Auto) 3.0 /HPF (0.0-6.0) 12/31/19 18:04 U Epithel Cells (Auto) 2.0 /HPF (0-13.0) 12/31/19 18:04 Urine Mucus 1+ /HPF 12/31/19 18:04 Vancomycin Trough 14.2 ug/mL (5.0-20.0) 12/13/19 15:01 Coronavirus (PCR) Negative (Negative) 12/29/19 10:07 Blood Type O POSITIVE 01/21/20 13:00 Antibody Screen Negative 01/21/20 13:00 - Diagnostic Impressions Diagnostic Impressions: Echocardiogram 11/29/19 07:37 Transthoracic Echocardiogram Indication: CHF BP: 116/72 HR: 33 Conclusions *The study is technically limited due to poor acoustic windows. *Global left ventricular systolic function is normal. *The estimated ejection fraction is 50-55%. *Mild concentric left ventricular hypertrophy is observed. *There is trace of mitral regurgitation. *There is mild tricuspid regurgitation. Findings Procedure Info: The study quality is poor. The study is technically limited due to poor acoustic windows. The study is technically limited due to patient body habitus. Left Ventricle: The left ventricular chamber size is normal. Mild concentric left ventricular hypertrophy is observed. Global left ventricular systolic function is normal. The estimated ejection fraction is 50-55%. Left Atrium: The left atrial chamber size is normal. Right Ventricle: The right ventricular cavity size is normal. Right Atrium: The right atrial cavity size is normal. Aortic Valve: The aortic valve leaflets are moderately thickened. There is trace of aortic regurgitation. There is no evidence of aortic stenosis. Mitral Valve: The mitral valve leaflets are mildly thickened. There is trace of mitral regurgitation. There is no evidence of mitral stenosis. Tricuspid Valve: There is mild tricuspid regurgitation. No pulmonary hypertension is noted. Pulmonic Valve: There is trace pulmonic regurgitation. Pericardium: There is no pericardial effusion. Aorta: There is no dilatation of the aortic root. Venous: The inferior vena cava appears normal in size. Contrast: Definity was used to optimize study. Intravenous contrast was used to enhance endocardial border definition. Measurements Chambers 2D Name Value Normal Range Ao root diameter (2D) 3.4 cm (2 - 3.7) Aortic Valve Name Value Normal Range AV Vmax 0.98 m/sec - AV VTI 16.76 cm - AV peak gradient 3.83 mmHg - AV mean gradient 2.57 mmHg - LVOT diameter 3.11 cm - LVOT Vmax 0.68 m/sec - LVOT VTI 11.52 cm - LVOT peak gradient 1.84 mmHg - LVOT mean gradient 1.27 mmHg - SV LVOT 87.31 ml - MALOU (continuity Vmax) 5.24 cm2 - MALOU (continuity VTI) 5.21 cm2 - Tricuspid Valve Name Value Normal Range IVC diameter 2.24 cm (1.2 - 2.3) Hoffman/IV: Voiding Method Condom Catheter IV Catheter Type [Right INT / Saline Lock Forearm] IV Catheter Type [Right Hand] Peripheral IV IV Catheter Type [Right Upper INT / Saline Lock arm] IV Catheter Type [Left Upper Mid-line arm] IV Catheter Type [Left Forearm INT / Saline Lock ] IV Catheter Type [Left Hand] INT / Saline Lock IV Catheter Type [Left Wrist] INT / Saline Lock IV Catheter Type [Right Peripheral IV Antecubital] Active Medications - Current Medications Current Medications: Generic Name Dose Route Start Last Admin Trade Name Freq PRN Reason Stop Dose Admin Acetaminophen 650 mg 12/31/19 11:43 01/14/20 08:27 Tylenol FEEDTUBE 650 mg Q6H PRN Administration Pain, Mild (1-3) Amiodarone HCl 200 mg 01/29/20 22:00 01/29/20 21:36 Cordarone PO 200 mg BID CAR Administration Lipase/Protease/Amylase 1 each 01/09/20 12:[address] 10,500 Unit FEEDTUBE PRN PRN For Clogged Feeding Tube Apixaban 5 mg 01/22/20 22:00 01/29/20 21:37 Eliquis PO 5 mg Q12HR CAR Administration Protocol Atorvastatin Calcium 40 mg 01/20/20 22:00 01/29/20 21:35 Lipitor PO 40 mg QHS CAR Administration Bisacodyl 10 mg 01/06/20 13:00 01/29/20 09:36 Dulcolax HI 10 mg DAILY CAR Administration Clopidogrel Bisulfate 75 mg 01/21/20 06:00 01/29/20 09:37 Plavix PO 75 mg QDAY CAR Administration Docusate Sodium 100 mg 12/02/19 22:00 01/29/20 21:35 Colace FEEDTUBE 100 mg BID CAR Administration Famotidine 20 mg 01/12/20 10:00 01/29/20 21:36 Pepcid PO 20 mg BID CAR Administration Furosemide 40 mg 01/28/20 18:00 01/30/20 06:34 Lasix IV 40 mg 0600,1800 CAR Administration Glycopyrrolate 2 mg 01/26/20 20:00 01/30/20 08:19 Glycopyrrolate PO 2 mg TID CAR Administration Haloperidol Lactate 5 mg 12/25/19 10:00 01/22/20 11:35 Haldol IV 5 mg Q6H PRN Administration Unrespon. to mult. doses BZD's Hydrophilic Ointment 1 applic 01/17/20 15:26 Vaseline Lip Therapy TP DIRECT PRN Dry Lips Lorazepam 2 mg 12/25/19 10:00 01/29/20 22:09 Ativan IV 2 mg Q6H PRN Administration AGITATION Magnesium Hydroxide 30 ml 01/14/20 13:35 01/22/20 11:32 Milk Of Magnesia PO 30 ml QDAY PRN Administration Constip unreliev by MOM/or NPO Metoprolol Tartrate 5 mg 01/11/20 08:00 01/30/20 03:30 Metoprolol IV 5 mg Q6H PRN Administration SEE INSTRUCTIONS Metoprolol Tartrate 25 mg 01/11/20 13:00 01/30/20 06:35 Metoprolol PO 25 mg Q6H CAR Administration Midodrine 10 mg 01/30/20 08:00 01/30/20 08:19 Proamatine PO 10 mg TID@0800,1200,1600 CAR Administration Morphine Sulfate 2 mg 01/06/20 15:41 01/29/20 10:53 Morphine IV 2 mg Q4H PRN Administration Pain, Moderate (4-6) Nitroglycerin 0.4 mg 01/19/20 21:09 01/20/20 03:03 Nitrostat SL 0.4 mg .Q5MIN PRN Administration Chest Pain Nitroglycerin 0.4 mg 01/21/20 06:00 01/30/20 06:35 Nitro Dur TD 0.4 mg QDAY@0600 CAR Administration Ondansetron HCl 4 mg 01/05/20 14:37 01/29/20 16:22 Zofran IV 4 mg Q8H PRN Administration Nausea And Vomiting Polyethylene Glycol 17 gm 12/04/19 22:00 01/29/20 21:41 Miralax 3350 PO Not Given QHS CAR Quetiapine Fumarate 300 mg 01/13/20 22:00 01/29/20 21:35 Seroquel PO 300 mg BID CAR Administration Scopolamine 1 each 01/07/20 20:00 01/07/20 21:08 Transderm-Scop TD 1 each Q72HR CAR Administration Simple Syrup 15 ml 01/09/20 12:01 Simple Syrup FEEDTUBE PRN PRN Hypoglycemia Simple Syrup 30 ml 01/09/20 12:01 Simple Syrup FEEDTUBE PRN PRN Hypoglycemia Sodium Bicarbonate 325 mg 01/09/20 12:01 Sodium Bicarbonate FEEDTUBE PRN PRN For Clogged Feeding Tube Sodium Chloride 10 ml 11/24/19 10:00 01/29/20 21:41 Sodium Chloride Flush Syringe 10 Ml IV 10 ml BID CAR Administration Tamsulosin HCl 0.8 mg 12/20/19 22:00 01/29/20 21:35 Flomax PO 0.8 mg QHS CAR Administration Nutrition/Malnutrition Assess - Dietary Evaluation Nutrition/Malnutrition Findings: Nutrition Notes Start: 11/24/19 12:22 Freq: Status: Active Protocol: Document 01/29/20 11:18 HEATHER (Rec: 01/29/20 11:28 HEATHER [id number]) Co-Sign 01/29/20 11:18 LEONA Nutrition Notes Initial or Follow up Reassessment Current Diagnosis Coronary Artery Disease,Heart Failure,Respiratory Failure, Stroke,Hyperlipidemia Other Pertinent Diagnosis Partial SBO, pneu, ventilated trach Current Diet Vital AF 75ml/hr Labs/Tests BG 152 Pertinent Medications Lasix Height 6 ft 2 in Weight 115.5 kg [place] Body Weight (kg) 86.36 BMI 32.6 Weight change and time frame Continue to monitor wt Weight Status Overweight Subjective/Other Information F/u TF tolerance. Pt tolerating TF at 75ml/hr. Will continue for now, may need to increase. Noted higher BG. Will monitor. 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 Yes Is Patient Ambulatory and/or Out of Bed No REE-([facility]-confined to bed) 2428.368 Kcal/Kg value to use for calculation 19 Approximate Energy Requirements Using 2195 kcal/Kg Calculation Used for Recommendations Kcal/kg Additional Notes Protein needs are up to 162g ( 2g/kg IBW) Fluid needs are 1.5L Nutrition Intervention Change Diet Order: Continue TF via PEG Nutrition Support: Vital AF 1.2 at 75ml/hr. Flush 100ml q4h Kcal 2,160 Protein (gm) 135 Fluid (mL) 1,460 Goal #1 Meet at least 75% of pt's energy and protein needs Goal #2 Weight maintenance Anticipated Discharge Needs: unable to determine Follow-Up By: 02/02/20 Additional Comments F/u TF tolerance, EEN and protein needs, wt, and [employer]ES.
[2020-01-30] MEDS: CLOPIDOGREL 75 MG TAB PO SCH (10:10)
[2020-01-30] MEDS: FAMOTIDINE 20 MG TAB PO SCH ×2 (10:10→21:20)
[2020-01-30] MEDS: APIXABAN 5 MG TAB PO SCH ×2 (10:10→21:19)
[2020-01-30] MEDS: DOCUSATE SODIUM 100 MG/10 ML ORAL LIQD FEEDTUBE SCH ×2 (10:11→21:19)
[2020-01-30] MEDS: QUEtiapine 100 MG TAB PO SCH (10:11)
[2020-01-30] MEDS: AMIODARONE 200 MG TAB PO SCH ×2 (10:11→21:19)
--- NOTE | 2020-01-30 11:17 | Progress Note ---
Assessment and Plan CAD LHC done 01/22/20 revealed widely patent previous LAD stent and mild nonobstructive atherosclerosis of the mid right coronary artery. Otherwise the rest of the coronary system was without significant atherosclerosis. LVEF 40 to 45%. There was some hypokinesis of the basal inferior wall suggestive of previous or recent infarct. Atrial fibrillation, paroxysmal on amiodarone and metoprolol Ischemic Cardiomyopathy re-echo this presentation reports an LVEF 40-45%. Hx of CAD Multifocal pneumonia negative COVID-19 test x 3 Chronic Respiratory failure s/p trach History of COPD Acute PE/DVT -on Eliquis Anemia Partial SBO vs ileus Recommend: Continue current therapy. Subjective Date of service: 01/30/20 Principal diagnosis: Ac hypoxemic resp failure; Pneumonia; PUI COVID-19; CHF; COPD; HTN Interval history: No acute events Objective Vital Signs Temp Pulse Pulse Pulse Pulse Resp BP 01/30/20 11:00 95 H 20 95/62 01/30/20 10:00 102 H 25 H 108/75 01/30/20 09:10 103 H 120/88 01/30/20 09:00 97 H 24 105/78 01/30/20 08:55 98 H 108/72 01/30/20 08:00 97.8 F 83 22 108/74 01/30/20 07:00 126 H 18 140/44 01/30/20 06:00 130 H 22 131/91 01/30/20 05:00 99 H 21 100/69 01/30/20 04:19 103 H 108 H 20 124/96 01/30/20 04:18 117 H 124/96 01/30/20 04:00 96.5 F L 105 H 97 H 120 H 25 H 102/68 01/30/20 03:30 126 H 102/68 01/30/20 03:00 104 H 22 122/83 01/30/20 02:00 98 H 20 106/70 01/30/20 01:00 96 H 25 H 107/69 01/30/20 00:02 01/30/20 00:00 96.5 F L 91 H 97 H 30 H 95/58 01/29/20 23:54 92 H 95/58 01/29/20 23:06 85 28 H 91/57 01/29/20 23:00 87 28 H 91/57 01/29/20 22:00 108 H 25 H 117/81 01/29/20 21:33 01/29/20 21:16 97 H 111/70 01/29/20 21:00 99 H 16 111/70 01/29/20 20:00 98.1 F 98 H 97 H 19 101/72 01/29/20 19:00 102 H 23 100/69 01/29/20 18:00 105 H 23 115/84 01/29/20 17:17 01/29/20 17:15 105 H 116/76 01/29/20 17:00 104 H 21 116/76 01/29/20 16:00 98 F 106 H 101 H 23 112/90 01/29/20 15:00 117 H 19 111/86 01/29/20 14:50 111 H 107/71 01/29/20 14:00 129 H 20 117/63 01/29/20 13:32 110 H 107/67 01/29/20 13:00 127 H 20 97/74 01/29/20 12:00 97.9 F 128 H 125 H 20 91/68 Pulse Ox Pulse Ox 01/30/20 11:00 96 01/30/20 10:00 88 01/30/20 09:10 95 01/30/20 09:00 97 01/30/20 08:55 99 100 01/30/20 08:00 100 01/30/20 07:00 98 01/30/20 06:00 94 01/30/20 05:00 96 01/30/20 04:19 98 01/30/20 04:18 98 01/30/20 04:00 96 01/30/20 03:30 01/30/20 03:00 01/30/20 02:00 98 01/30/20 01:00 99 01/30/20 00:02 100 01/30/20 00:00 100 01/29/20 23:54 100 01/29/20 23:06 97 01/29/20 23:00 97 01/29/20 22:00 95 01/29/20 21:33 97 01/29/20 21:16 98 01/29/20 21:00 99 01/29/20 20:00 98 01/29/20 19:00 98 01/29/20 18:00 98 01/29/20 17:17 97 01/29/20 17:15 99 01/29/20 17:00 95 01/29/20 16:00 97 01/29/20 15:00 99 01/29/20 14:50 95 01/29/20 14:00 100 01/29/20 13:32 01/29/20 13:00 01/29/20 12:00 - Physical Examination General: Other (awake, s/p trach) HEENT: Positive: PERRL Neck: Positive: neck supple. Negative: JVD/HJR Cardiac: Positive: irregularly irregular Lungs: Positive: Decreased Breath Sounds Neuro: Positive: Weakness Abdomen: Positive: Soft Skin: Positive: Clear Extremities: Absent: edema - Allied health notes Allied health notes reviewed: nursing
--- NOTE | 2020-01-30 13:13 | Progress Note ---
Assessment and Plan Acute hypoxemic respiratory failure Bilateral pneumonia, community acquired. Acute LLL branch P.E. Acute DVT Person under investigation for COVID-19 infection. Acute congestive heart failure exacerbation. History of cerebrovascular accident. Acute chronic obstructive pulmonary disease exacerbation. Hypertension and hypertensive urgency at presentation. History of arthritis. Leukocytosis. Lactic acidosis. Oropharyngeal dysphagia - continue Midodrine for BP support during dialysis - continue diuresis with lasix 40mg IV bid (follow electrolytes and correct as necessary) - target begative fluid balance - continue daytime T-piece trials (switch to PSV if fails) and advance RTC as tolerated - continue mucomyst nebs re: secretions - continue full anticoagulation with Apixaban - continue care as below otherwise; - continue daily SAT's and SBT assessment as tolerated - continue seroquel for anxiolysis / delirium - COVID isolation per facility protocol - prn diuresis while following electrolytes / I's & O's - continue to wean oxygen for O2 sat's > 92% - continue bronchodilators with routine trach care and pulmonary hygiene per RT - continue Robinul & Scopolamine for secretion control - VAP bundle addressed (Aspiration precautions, HOB >40) - continue to wean per pulmonary driven protocols - sedation target is RASS 0 to -1 - continue prn analgesia per CPOT score - follow clinically re: fever curves / trend WBC - Avoid delirium (no benzodiazepines if they can be avoided) - Maintain sleep-wake cycle - enteral nutrition at goal rate as tolerated - continue accucheck's with glycemic control per SSI for target blood glucose goal of 140-180 mg/dL while critically ill; Avoid hypoglycemia - for VTE he is on IV Heparin - continue stress ulcer prophylaxis with Famotidine - continue mobility protocols for pressure ulcer prophylaxis - continue fall precautions - continue wound care management per RN / WCT - Supportive transfusions to keep HgB>7g/dL - CXR's and ABG's prn - Continue to monitor neurologic function - Continue chronic home medications - Continue all supportive care ........ re-evaluate in am & prn CONDITION: CRITICAL PROGNOSIS: GUARDED CODE STATUS: FULL CODE The high probability of a clinically significant, sudden or life threatening deterioration of the [Respiratory, cardiovascular & neurological] system(s) required my full and direct attention, intervention and personal management. The aggregate critical care time was [33] minutes without overlap. Time includes spent on [x] Data Review and interpretation [x] Patient assessment and monitoring of vital signs [x] Documentation [x] Medication orders and management Subjective Date of service: 01/30/20 Principal diagnosis: Ac hypoxemic resp failure; Pneumonia; PUI COVID-19; CHF; COPD; HTN Interval history: Patient is seen today for: Acute hypoxemic respiratory failure; Adan. Pneumonia (CAP); PUI COVID-19 infection; AE-CHF; AE-COPD; H/O CVA; HTN Seen and examined at bedside; 24 hour events reviewed; nursing and respiratory care staff consulted; no adverse overnight events reported to me; resting peacefully in bed; placed back on t-piece this morning but again quickly tired out; tolerating diuresis well so far; no N/V/F/C Objective Vital Signs - 12hr 01/30/20 01/30/20 01/30/20 02:00 03:00 03:30 Temperature Pulse Rate 98 H 104 H 126 H Pulse Rate [ From Monitor] Pulse Rate [ Right Femoral] Pulse Rate [ Right Radial] Respiratory 20 22 Rate Blood Pressure 106/70 122/83 102/68 O2 Sat by Pulse 98 Oximetry O2 Sat by Pulse Oximetry [ Assessment] 01/30/20 01/30/20 01/30/20 04:00 04:18 04:19 Temperature 96.5 F L Pulse Rate 105 H 117 H Pulse Rate [ 97 H From Monitor] Pulse Rate [ 120 H 103 H Right Femoral] Pulse Rate [ 108 H Right Radial] Respiratory 25 H 20 Rate Blood Pressure 102/68 124/96 124/96 O2 Sat by Pulse 96 98 98 Oximetry O2 Sat by Pulse Oximetry [ Assessment] 01/30/20 01/30/20 01/30/20 05:00 06:00 07:00 Temperature Pulse Rate 99 H 130 H 126 H Pulse Rate [ From Monitor] Pulse Rate [ Right Femoral] Pulse Rate [ Right Radial] Respiratory 21 22 18 Rate Blood Pressure 100/69 131/91 140/44 O2 Sat by Pulse 96 94 98 Oximetry O2 Sat by Pulse Oximetry [ Assessment] 01/30/20 01/30/20 01/30/20 08:00 08:55 09:00 Temperature 97.8 F Pulse Rate 83 98 H 97 H Pulse Rate [ 87 From Monitor] Pulse Rate [ Right Femoral] Pulse Rate [ Right Radial] Respiratory 22 24 Rate Blood Pressure 108/74 108/72 105/78 O2 Sat by Pulse 100 99 97 Oximetry O2 Sat by Pulse 100 Oximetry [ Assessment] 01/30/20 01/30/20 01/30/20 09:10 10:00 11:00 Temperature Pulse Rate 103 H 102 H 95 H Pulse Rate [ From Monitor] Pulse Rate [ Right Femoral] Pulse Rate [ Right Radial] Respiratory 22 25 H 25 H Rate Blood Pressure 120/88 108/75 98/62 O2 Sat by Pulse 95 88 98 Oximetry O2 Sat by Pulse Oximetry [ Assessment] 01/30/20 12:00 Temperature 98.0 F Pulse Rate Pulse Rate [ From Monitor] Pulse Rate [ Right Femoral] Pulse Rate [ Right Radial] Respiratory Rate Blood Pressure O2 Sat by Pulse Oximetry O2 Sat by Pulse Oximetry [ Assessment] Constitutional: appears uncomfortable, other (elelelderly and obese male, normo cephalic with mildly increased respiratory effort at rest) Eyes: non-icteric ENT: oropharynx moist, other (+ midline tracheostomy) Neck: supple, no JVD Effort: mildly labored Ascultation: Bilateral: diminished breath sounds, rhonchi (improving) Percussion: Bilateral: not dull Cardiovascular: irregular rhythm, other (S1,S2) Gastrointestinal: normoactive bowel sounds, soft, non-tender, non-distended (protuberant), other (protuberant; PEG in place) Integumentary: normal Extremities: no cyanosis, pulses normal, no ischemia or petechiae, edema (bila teral upper ) Neurologic: non-focal exam (moves extremities), pupils equal and round, CN II- XII normal, motor strength normal and (moves all extremities) Psychiatric: mood appropriate, affect normal CBC and BMP: 01/28/20 04:37 01/29/20 04:55 ABG, PT/INR, D-dimer: ABG ABG pH 7.447 pH Units (7.350-7.450) 01/25/20 21:02 POC ABG pCO2 45.6 mmHg (32.0-48.0) 01/12/20 13:58 ABG pCO2 47.0 mm Hg 01/25/20 21:02 POC ABG pO2 76.6 mmHg (83-108) L 01/12/20 13:58 ABG pO2 57.5 mm Hg (80.0-90.0) L 01/25/20 21:02 POC ABG HCO3 31.2 01/12/20 13:58 ABG O2 Saturation 90.3 % (95.0-99.0) L 01/25/20 21:02 PT/INR, D-dimer PT 16.9 Sec. (12.2-14.9) H 01/22/20 09:58 INR 1.34 (0.87-1.13) H 01/22/20 09:58 Abnormal lab findings: Abnormal Labs 11/24/19 11/24/19 11/24/19 02:53 02:53 03:45 WBC 14.3 H RBC Hgb Hct MCHC RDW 17.2 H MCV MCH Lymph % (Auto) Armstrong % (Auto) Armstrong # Eos # Lymph # (Auto) Armstrong # (Auto) Eos # (Auto) Seg Neutrophils % Seg Neuts % (Manual) Baso # (Auto) Lymphocytes % (Manual) Monocytes % (Manual) Eosinophils % (Manual) Basophils % (Manual) Seg Neutrophils # Seg Neutrophils # Man 8.3 H Lymphocytes # (Manual) Monocytes # (Manual) 0.9 H Eosinophils # (Manual) Nucleated RBC % Basophils # (Manual) PT INR APTT Heparin Anti-Xa Level ABG pH 7.313 L POC ABG pO2 ABG pO2 102.8 H ABG HCO3 ABG O2 Saturation ABG Base Excess -2.9 L POC ABG pCO2 ABG Hemoglobin ABG Oxyhemoglobin ABG Glucose Oxyhemoglobin 93.9 L Sodium Potassium Chloride Carbon Dioxide BUN Creatinine Glucose 195 H POC Glucose Lactic Acid Calcium Phosphorus Magnesium AST ALT Lactate Dehydrogenase CK-MB (CK-2) 4.3 H C-Reactive Protein NT-Pro-B Natriuret Pep 1181 H Total Protein Albumin Arterial Blood Glucose Urine WBC (Auto) 11/24/19 11/24/19 11/24/19 04:53 04:53 10:37 WBC RBC Hgb Hct MCHC RDW MCV MCH Lymph % (Auto) Armstrong % (Auto) Armstrong # Eos # Lymph # (Auto) Armstrong # (Auto) Eos # (Auto) Seg Neutrophils % Seg Neuts % (Manual) Baso # (Auto) Lymphocytes % (Manual) Monocytes % (Manual) Eosinophils % (Manual) Basophils % (Manual) Seg Neutrophils # Seg Neutrophils # Man Lymphocytes # (Manual) Monocytes # (Manual) Eosinophils # (Manual) Nucleated RBC % Basophils # (Manual) PT INR APTT Heparin Anti-Xa Level ABG pH POC ABG pO2 ABG pO2 ABG HCO3 ABG O2 Saturation ABG Base Excess POC ABG pCO2 ABG Hemoglobin ABG Oxyhemoglobin ABG Glucose Oxyhemoglobin Sodium Potassium Chloride Carbon Dioxide BUN Creatinine Glucose 162 H POC Glucose Lactic Acid 2.40 H* 2.50 H* Calcium Phosphorus Magnesium AST ALT Lactate Dehydrogenase 240 H CK-MB (CK-2) C-Reactive Protein NT-Pro-B Natriuret Pep Total Protein Albumin Arterial Blood Glucose Urine WBC (Auto) 11/24/19 11/24/19 11/24/19 12:21 14:50 19:54 WBC RBC Hgb Hct MCHC RDW MCV MCH Lymph % (Auto) Armstrong % (Auto) Armstrong # Eos # Lymph # (Auto) Armstrong # (Auto) Eos # (Auto) Seg Neutrophils % Seg Neuts % (Manual) Baso # (Auto) Lymphocytes % (Manual) Monocytes % (Manual) Eosinophils % (Manual) Basophils % (Manual) Seg Neutrophils # Seg Neutrophils # Man Lymphocytes # (Manual) Monocytes # (Manual) Eosinophils # (Manual) Nucleated RBC % Basophils # (Manual) PT INR APTT Heparin Anti-Xa Level ABG pH POC ABG pO2 ABG pO2 ABG HCO3 ABG O2 Saturation ABG Base Excess POC ABG pCO2 ABG Hemoglobin ABG Oxyhemoglobin ABG Glucose Oxyhemoglobin Sodium Potassium Chloride Carbon Dioxide BUN Creatinine Glucose POC Glucose 145 H 143 H 124 H Lactic Acid Calcium Phosphorus Magnesium AST ALT Lactate Dehydrogenase CK-MB (CK-2) C-Reactive Protein NT-Pro-B Natriuret Pep Total Protein Albumin Arterial Blood Glucose Urine WBC (Auto) 11/25/19 11/25/19 11/25/19 00:18 03:18 05:11 WBC 13.7 H RBC Hgb Hct MCHC RDW 17.1 H MCV MCH Lymph % (Auto) 10.8 L Armstrong % (Auto) 8.7 H Armstrong # 1.2 H Eos # Lymph # (Auto) Armstrong # (Auto) Eos # (Auto) Seg Neutrophils % 80.2 H Seg Neuts % (Manual) Baso # (Auto) Lymphocytes % (Manual) Monocytes % (Manual) Eosinophils % (Manual) Basophils % (Manual) Seg Neutrophils # 11.0 H Seg Neutrophils # Man Lymphocytes # (Manual) Monocytes # (Manual) Eosinophils # (Manual) Nucleated RBC % Basophils # (Manual) PT INR APTT Heparin Anti-Xa Level ABG pH 7.333 L POC ABG pO2 ABG pO2 61.2 L ABG HCO3 ABG O2 Saturation 90.2 L ABG Base Excess POC ABG pCO2 ABG Hemoglobin 13.7 L ABG Oxyhemoglobin ABG Glucose Oxyhemoglobin 88.2 L Sodium Potassium Chloride Carbon Dioxide BUN Creatinine Glucose POC Glucose 109 H Lactic Acid Calcium Phosphorus Magnesium AST ALT Lactate Dehydrogenase CK-MB (CK-2) C-Reactive Protein NT-Pro-B Natriuret Pep Total Protein Albumin Arterial Blood Glucose Urine WBC (Auto) 11/25/19 11/25/19 11/26/19 05:11 11:40 03:12 WBC RBC Hgb Hct MCHC RDW MCV MCH Lymph % (Auto) Armstrong % (Auto) Armstrong # Eos # Lymph # (Auto) Armstrong # (Auto) Eos # (Auto) Seg Neutrophils % Seg Neuts % (Manual) Baso # (Auto) Lymphocytes % (Manual) Monocytes % (Manual) Eosinophils % (Manual) Basophils % (Manual) Seg Neutrophils # Seg Neutrophils # Man Lymphocytes # (Manual) Monocytes # (Manual) Eosinophils # (Manual) Nucleated RBC % Basophils # (Manual) PT INR APTT Heparin Anti-Xa Level ABG pH POC ABG pO2 ABG pO2 155.1 H ABG HCO3 27.8 H ABG O2 Saturation ABG Base Excess POC ABG pCO2 ABG Hemoglobin 12.2 L ABG Oxyhemoglobin ABG Glucose Oxyhemoglobin Sodium Potassium Chloride Carbon Dioxide BUN 23 H Creatinine Glucose 110 H POC Glucose 108 H Lactic Acid Calcium Phosphorus Magnesium AST ALT Lactate Dehydrogenase CK-MB (CK-2) C-Reactive Protein NT-Pro-B Natriuret Pep Total Protein Albumin Arterial Blood Glucose Urine WBC (Auto) 11/26/19 11/26/19 11/26/19 06:17 10:43 10:43 WBC 11.4 H RBC Hgb Hct MCHC RDW 17.1 H MCV MCH Lymph % (Auto) Armstrong % (Auto) Armstrong # Eos # Lymph # (Auto) Armstrong # (Auto) Eos # (Auto) Seg Neutrophils % Seg Neuts % (Manual) Baso # (Auto) Lymphocytes % (Manual) Monocytes % (Manual) Eosinophils % (Manual) Basophils % (Manual) Seg Neutrophils # Seg Neutrophils # Man Lymphocytes # (Manual) Monocytes # (Manual) Eosinophils # (Manual) Nucleated RBC % Basophils # (Manual) PT INR APTT Heparin Anti-Xa Level ABG pH POC ABG pO2 ABG pO2 ABG HCO3 ABG O2 Saturation ABG Base Excess POC ABG pCO2 ABG Hemoglobin ABG Oxyhemoglobin ABG Glucose Oxyhemoglobin Sodium Potassium Chloride Carbon Dioxide BUN 29 H Creatinine Glucose POC Glucose 107 H Lactic Acid Calcium Phosphorus Magnesium AST ALT Lactate Dehydrogenase CK-MB (CK-2) C-Reactive Protein NT-Pro-B Natriuret Pep Total Protein Albumin Arterial Blood Glucose Urine WBC (Auto) 11/26/19 11/27/19 11/27/19 17:11 01:53 04:11 WBC RBC Hgb Hct MCHC RDW MCV MCH Lymph % (Auto) Armstrong % (Auto) Armstrong # Eos # Lymph # (Auto) Armstrong # (Auto) Eos # (Auto) Seg Neutrophils % Seg Neuts % (Manual) Baso # (Auto) Lymphocytes % (Manual) Monocytes % (Manual) Eosinophils % (Manual) Basophils % (Manual) Seg Neutrophils # Seg Neutrophils # Man Lymphocytes # (Manual) Monocytes # (Manual) Eosinophils # (Manual) Nucleated RBC % Basophils # (Manual) PT INR APTT Heparin Anti-Xa Level ABG pH POC ABG pO2 ABG pO2 ABG HCO3 29.2 H ABG O2 Saturation ABG Base Excess 3.4 H POC ABG pCO2 ABG Hemoglobin 13.3 L ABG Oxyhemoglobin ABG Glucose Oxyhemoglobin 94.5 L Sodium Potassium Chloride Carbon Dioxide BUN Creatinine Glucose POC Glucose 113 H 108 H Lactic Acid Calcium Phosphorus Magnesium AST ALT Lactate Dehydrogenase CK-MB (CK-2) C-Reactive Protein NT-Pro-B Natriuret Pep Total Protein Albumin Arterial Blood Glucose Urine WBC (Auto) 11/27/19 11/28/19 11/28/19 05:27 05:00 05:25 WBC RBC Hgb Hct MCHC RDW MCV MCH Lymph % (Auto) Armstrong % (Auto) Armstrong # Eos # Lymph # (Auto) Armstrong # (Auto) Eos # (Auto) Seg Neutrophils % Seg Neuts % (Manual) Baso # (Auto) Lymphocytes % (Manual) Monocytes % (Manual) Eosinophils % (Manual) Basophils % (Manual) Seg Neutrophils # Seg Neutrophils # Man Lymphocytes # (Manual) Monocytes # (Manual) Eosinophils # (Manual) Nucleated RBC % Basophils # (Manual) PT INR APTT Heparin Anti-Xa Level ABG pH POC ABG pO2 68.1 L ABG pO2 ABG HCO3 ABG O2 Saturation ABG Base Excess POC ABG pCO2 ABG Hemoglobin ABG Oxyhemoglobin 91.2 L ABG Glucose Oxyhemoglobin Sodium Potassium Chloride Carbon Dioxide BUN Creatinine Glucose POC Glucose 111 H 110 H Lactic Acid Calcium Phosphorus Magnesium AST ALT Lactate Dehydrogenase CK-MB (CK-2) C-Reactive Protein NT-Pro-B Natriuret Pep Total Protein Albumin Arterial Blood Glucose Urine WBC (Auto) 11/28/19 11/28/19 11/28/19 12:08 13:47 13:47 WBC 11.3 H RBC Hgb Hct MCHC RDW 16.1 H MCV MCH Lymph % (Auto) Armstrong % (Auto) 9.9 H Armstrong # 1.1 H Eos # Lymph # (Auto) Armstrong # (Auto) Eos # (Auto) Seg Neutrophils % 71.4 H Seg Neuts % (Manual) Baso # (Auto) Lymphocytes % (Manual) Monocytes % (Manual) Eosinophils % (Manual) Basophils % (Manual) Seg Neutrophils # 8.1 H Seg Neutrophils # Man Lymphocytes # (Manual) Monocytes # (Manual) Eosinophils # (Manual) Nucleated RBC % Basophils # (Manual) PT INR APTT Heparin Anti-Xa Level ABG pH POC ABG pO2 ABG pO2 ABG HCO3 ABG O2 Saturation ABG Base Excess POC ABG pCO2 ABG Hemoglobin ABG Oxyhemoglobin ABG Glucose Oxyhemoglobin Sodium Potassium Chloride Carbon Dioxide BUN 23 H Creatinine Glucose 123 H POC Glucose 112 H Lactic Acid Calcium Phosphorus Magnesium AST ALT Lactate Dehydrogenase CK-MB (CK-2) C-Reactive Protein NT-Pro-B Natriuret Pep Total Protein Albumin 3.7 L Arterial Blood Glucose Urine WBC (Auto) 11/28/19 11/29/19 11/29/19 17:26 03:55 17:04 WBC RBC Hgb Hct MCHC RDW MCV MCH Lymph % (Auto) Armstrong % (Auto) Armstrong # Eos # Lymph # (Auto) Armstrong # (Auto) Eos # (Auto) Seg Neutrophils % Seg Neuts % (Manual) Baso # (Auto) Lymphocytes % (Manual) Monocytes % (Manual) Eosinophils % (Manual) Basophils % (Manual) Seg Neutrophils # Seg Neutrophils # Man Lymphocytes # (Manual) Monocytes # (Manual) Eosinophils # (Manual) Nucleated RBC % Basophils # (Manual) PT INR APTT Heparin Anti-Xa Level ABG pH POC ABG pO2 ABG pO2 65.7 L ABG HCO3 28.3 H ABG O2 Saturation 93.9 L ABG Base Excess 3.6 H POC ABG pCO2 ABG Hemoglobin 13.3 L ABG Oxyhemoglobin ABG Glucose Oxyhemoglobin 91.5 L Sodium Potassium Chloride Carbon Dioxide BUN Creatinine Glucose POC Glucose 123 H 119 H Lactic Acid Calcium Phosphorus Magnesium AST ALT Lactate Dehydrogenase CK-MB (CK-2) C-Reactive Protein NT-Pro-B Natriuret Pep Total Protein Albumin Arterial Blood Glucose Urine WBC (Auto) 11/30/19 11/30/19 11/30/19 04:17 04:17 04:56 WBC 13.4 H RBC Hgb Hct MCHC RDW 15.6 H MCV MCH Lymph % (Auto) Armstrong % (Auto) Armstrong # Eos # Lymph # (Auto) Armstrong # (Auto) Eos # (Auto) Seg Neutrophils % Seg Neuts % (Manual) Baso # (Auto) Lymphocytes % (Manual) Monocytes % (Manual) Eosinophils % (Manual) Basophils % (Manual) Seg Neutrophils # Seg Neutrophils # Man Lymphocytes # (Manual) Monocytes # (Manual) Eosinophils # (Manual) Nucleated RBC % Basophils # (Manual) PT INR APTT Heparin Anti-Xa Level ABG pH POC ABG pO2 ABG pO2 56.3 L ABG HCO3 29.3 H ABG O2 Saturation 91.5 L ABG Base Excess 4.7 H POC ABG pCO2 ABG Hemoglobin 12.1 L ABG Oxyhemoglobin ABG Glucose Oxyhemoglobin 89.2 L Sodium 147 H Potassium Chloride Carbon Dioxide BUN 30 H Creatinine Glucose 124 H POC Glucose Lactic Acid Calcium Phosphorus Magnesium AST ALT Lactate Dehydrogenase CK-MB (CK-2) C-Reactive Protein NT-Pro-B Natriuret Pep Total Protein Albumin 3.8 L Arterial Blood Glucose Urine WBC (Auto) 11/30/19 11/30/19 11/30/19 05:51 11:54 18:17 WBC RBC Hgb Hct MCHC RDW MCV MCH Lymph % (Auto) Armstrong % (Auto) Armstrong # Eos # Lymph # (Auto) Armstrong # (Auto) Eos # (Auto) Seg Neutrophils % Seg Neuts % (Manual) Baso # (Auto) Lymphocytes % (Manual) Monocytes % (Manual) Eosinophils % (Manual) Basophils % (Manual) Seg Neutrophils # Seg Neutrophils # Man Lymphocytes # (Manual) Monocytes # (Manual) Eosinophils # (Manual) Nucleated RBC % Basophils # (Manual) PT INR APTT Heparin Anti-Xa Level ABG pH POC ABG pO2 ABG pO2 ABG HCO3 ABG O2 Saturation ABG Base Excess POC ABG pCO2 ABG Hemoglobin ABG Oxyhemoglobin ABG Glucose Oxyhemoglobin Sodium Potassium Chloride Carbon Dioxide BUN Creatinine Glucose POC Glucose 127 H 115 H 143 H Lactic Acid Calcium Phosphorus Magnesium AST ALT Lactate Dehydrogenase CK-MB (CK-2) C-Reactive Protein NT-Pro-B Natriuret Pep Total Protein Albumin Arterial Blood Glucose Urine WBC (Auto) 12/01/19 12/01/19 12/01/19 01:18 05:22 12:16 WBC RBC Hgb Hct MCHC RDW MCV MCH Lymph % (Auto) Armstrong % (Auto) Armstrong # Eos # Lymph # (Auto) Armstrong # (Auto) Eos # (Auto) Seg Neutrophils % Seg Neuts % (Manual) Baso # (Auto) Lymphocytes % (Manual) Monocytes % (Manual) Eosinophils % (Manual) Basophils % (Manual) Seg Neutrophils # Seg Neutrophils # Man Lymphocytes # (Manual) Monocytes # (Manual) Eosinophils # (Manual) Nucleated RBC % Basophils # (Manual) PT INR APTT Heparin Anti-Xa Level ABG pH POC ABG pO2 ABG pO2 ABG HCO3 ABG O2 Saturation ABG Base Excess POC ABG pCO2 ABG Hemoglobin ABG Oxyhemoglobin ABG Glucose Oxyhemoglobin Sodium Potassium 3.5 L Chloride 107.8 H Carbon Dioxide BUN 37 H Creatinine Glucose 157 H POC Glucose 118 H 148 H Lactic Acid Calcium 8.2 L D Phosphorus Magnesium AST 48 H ALT 60 H Lactate Dehydrogenase 194 H CK-MB (CK-2) C-Reactive Protein 8.50 H NT-Pro-B Natriuret Pep Total Protein 5.5 L Albumin 2.8 L Arterial Blood Glucose Urine WBC (Auto) 12/01/19 12/02/19 12/02/19 18:04 00:05 05:16 WBC 11.4 H RBC Hgb Hct MCHC RDW 15.9 H MCV MCH Lymph % (Auto) Armstrong % (Auto) 9.9 H Armstrong # 1.1 H Eos # Lymph # (Auto) Armstrong # (Auto) Eos # (Auto) Seg Neutrophils % 70.3 H Seg Neuts % (Manual) Baso # (Auto) Lymphocytes % (Manual) Monocytes % (Manual) Eosinophils % (Manual) Basophils % (Manual) Seg Neutrophils # 8.0 H Seg Neutrophils # Man Lymphocytes # (Manual) Monocytes # (Manual) Eosinophils # (Manual) Nucleated RBC % Basophils # (Manual) PT INR APTT Heparin Anti-Xa Level ABG pH POC ABG pO2 ABG pO2 ABG HCO3 ABG O2 Saturation ABG Base Excess POC ABG pCO2 ABG Hemoglobin ABG Oxyhemoglobin ABG Glucose Oxyhemoglobin Sodium Potassium Chloride Carbon Dioxide BUN Creatinine Glucose POC Glucose 143 H 107 H Lactic Acid Calcium Phosphorus Magnesium AST ALT Lactate Dehydrogenase CK-MB (CK-2) C-Reactive Protein NT-Pro-B Natriuret Pep Total Protein Albumin Arterial Blood Glucose Urine WBC (Auto) 12/02/19 12/02/19 12/02/19 05:16 06:03 11:52 WBC RBC Hgb Hct MCHC RDW MCV MCH Lymph % (Auto) Armstrong % (Auto) Armstrong # Eos # Lymph # (Auto) Armstrong # (Auto) Eos # (Auto) Seg Neutrophils % Seg Neuts % (Manual) Baso # (Auto) Lymphocytes % (Manual) Monocytes % (Manual) Eosinophils % (Manual) Basophils % (Manual) Seg Neutrophils # Seg Neutrophils # Man Lymphocytes # (Manual) Monocytes # (Manual) Eosinophils # (Manual) Nucleated RBC % Basophils # (Manual) PT INR APTT Heparin Anti-Xa Level ABG pH POC ABG pO2 ABG pO2 ABG HCO3 ABG O2 Saturation ABG Base Excess POC ABG pCO2 ABG Hemoglobin ABG Oxyhemoglobin ABG Glucose Oxyhemoglobin Sodium 146 H Potassium Chloride Carbon Dioxide BUN 28 H Creatinine Glucose 123 H POC Glucose 110 H 152 H Lactic Acid Calcium Phosphorus Magnesium AST ALT Lactate Dehydrogenase CK-MB (CK-2) C-Reactive Protein NT-Pro-B Natriuret Pep Total Protein Albumin Arterial Blood Glucose Urine WBC (Auto) 12/02/19 12/02/19 12/02/19 12:58 17:58 23:36 WBC RBC Hgb Hct MCHC RDW MCV MCH Lymph % (Auto) Armstrong % (Auto) Armstrong # Eos # Lymph # (Auto) Armstrong # (Auto) Eos # (Auto) Seg Neutrophils % Seg Neuts % (Manual) Baso # (Auto) Lymphocytes % (Manual) Monocytes % (Manual) Eosinophils % (Manual) Basophils % (Manual) Seg Neutrophils # Seg Neutrophils # Man Lymphocytes # (Manual) Monocytes # (Manual) Eosinophils # (Manual) Nucleated RBC % Basophils # (Manual) PT INR APTT Heparin Anti-Xa Level ABG pH POC ABG pO2 78.1 L ABG pO2 ABG HCO3 ABG O2 Saturation ABG Base Excess POC ABG pCO2 ABG Hemoglobin ABG Oxyhemoglobin ABG Glucose Oxyhemoglobin Sodium Potassium Chloride Carbon Dioxide BUN Creatinine Glucose POC Glucose 120 H 123 H Lactic Acid Calcium Phosphorus Magnesium AST ALT Lactate Dehydrogenase CK-MB (CK-2) C-Reactive Protein NT-Pro-B Natriuret Pep Total Protein Albumin Arterial Blood Glucose Urine WBC (Auto) 12/03/19 12/03/19 12/03/19 06:03 06:14 11:46 WBC RBC Hgb Hct MCHC RDW MCV MCH Lymph % (Auto) Armstrong % (Auto) Armstrong # Eos # Lymph # (Auto) Armstrong # (Auto) Eos # (Auto) Seg Neutrophils % Seg Neuts % (Manual) Baso # (Auto) Lymphocytes % (Manual) Monocytes % (Manual) Eosinophils % (Manual) Basophils % (Manual) Seg Neutrophils # Seg Neutrophils # Man Lymphocytes # (Manual) Monocytes # (Manual) Eosinophils # (Manual) Nucleated RBC % Basophils # (Manual) PT INR APTT Heparin Anti-Xa Level ABG pH POC ABG pO2 ABG pO2 ABG HCO3 ABG O2 Saturation ABG Base Excess POC ABG pCO2 ABG Hemoglobin ABG Oxyhemoglobin ABG Glucose Oxyhemoglobin Sodium Potassium Chloride Carbon Dioxide BUN Creatinine Glucose POC Glucose 142 H 130 H Lactic Acid Calcium Phosphorus Magnesium AST ALT Lactate Dehydrogenase CK-MB (CK-2) C-Reactive Protein NT-Pro-B Natriuret Pep Total Protein Albumin Arterial Blood Glucose Urine WBC (Auto) 8.0 H 12/03/19 12/03/19 12/04/19 15:50 17:39 00:04 WBC RBC Hgb Hct MCHC RDW MCV MCH Lymph % (Auto) Armstrong % (Auto) Armstrong # Eos # Lymph # (Auto) Armstrong # (Auto) Eos # (Auto) Seg Neutrophils % Seg Neuts % (Manual) Baso # (Auto) Lymphocytes % (Manual) Monocytes % (Manual) Eosinophils % (Manual) Basophils % (Manual) Seg Neutrophils # Seg Neutrophils # Man Lymphocytes # (Manual) Monocytes # (Manual) Eosinophils # (Manual) Nucleated RBC % Basophils # (Manual) PT INR APTT Heparin Anti-Xa Level ABG pH POC ABG pO2 ABG pO2 ABG HCO3 ABG O2 Saturation ABG Base Excess POC ABG pCO2 ABG Hemoglobin ABG Oxyhemoglobin ABG Glucose Oxyhemoglobin Sodium Potassium Chloride Carbon Dioxide BUN Creatinine Glucose POC Glucose 146 H 133 H Lactic Acid Calcium Phosphorus 2.40 L Magnesium AST ALT Lactate Dehydrogenase CK-MB (CK-2) C-Reactive Protein NT-Pro-B Natriuret Pep Total Protein Albumin Arterial Blood Glucose Urine WBC (Auto) 12/04/19 12/04/19 12/04/19 03:58 03:58 05:22 WBC 12.5 H RBC Hgb 11.2 L Hct 35.2 L MCHC RDW 16.0 H MCV MCH Lymph % (Auto) Armstrong % (Auto) 9.6 H Armstrong # 1.2 H Eos # 0.5 H Lymph # (Auto) Armstrong # (Auto) Eos # (Auto) Seg Neutrophils % Seg Neuts % (Manual) Baso # (Auto) Lymphocytes % (Manual) Monocytes % (Manual) Eosinophils % (Manual) Basophils % (Manual) Seg Neutrophils # 8.6 H Seg Neutrophils # Man Lymphocytes # (Manual) Monocytes # (Manual) Eosinophils # (Manual) Nucleated RBC % Basophils # (Manual) PT INR APTT Heparin Anti-Xa Level ABG pH POC ABG pO2 ABG pO2 ABG HCO3 ABG O2 Saturation ABG Base Excess POC ABG pCO2 ABG Hemoglobin ABG Oxyhemoglobin ABG Glucose Oxyhemoglobin Sodium 146 H Potassium Chloride 108.6 H Carbon Dioxide BUN 30 H Creatinine 0.7 L Glucose 121 H POC Glucose 132 H Lactic Acid Calcium Phosphorus Magnesium AST ALT Lactate Dehydrogenase CK-MB (CK-2) C-Reactive Protein NT-Pro-B Natriuret Pep Total Protein Albumin Arterial Blood Glucose Urine WBC (Auto) 12/04/19 12/04/19 12/05/19 13:26 18:43 00:19 WBC RBC Hgb Hct MCHC RDW MCV MCH Lymph % (Auto) Armstrong % (Auto) Armstrong # Eos # Lymph # (Auto) Armstrong # (Auto) Eos # (Auto) Seg Neutrophils % Seg Neuts % (Manual) Baso # (Auto) Lymphocytes % (Manual) Monocytes % (Manual) Eosinophils % (Manual) Basophils % (Manual) Seg Neutrophils # Seg Neutrophils # Man Lymphocytes # (Manual) Monocytes # (Manual) Eosinophils # (Manual) Nucleated RBC % Basophils # (Manual) PT INR APTT Heparin Anti-Xa Level ABG pH POC ABG pO2 ABG pO2 ABG HCO3 ABG O2 Saturation ABG Base Excess POC ABG pCO2 ABG Hemoglobin ABG Oxyhemoglobin ABG Glucose Oxyhemoglobin Sodium Potassium Chloride Carbon Dioxide BUN Creatinine Glucose POC Glucose 185 H 156 H 150 H Lactic Acid Calcium Phosphorus Magnesium AST ALT Lactate Dehydrogenase CK-MB (CK-2) C-Reactive Protein NT-Pro-B Natriuret Pep Total Protein Albumin Arterial Blood Glucose Urine WBC (Auto) 12/05/19 12/05/19 12/05/19 03:37 03:37 05:14 WBC 16.3 H RBC Hgb 11.4 L Hct MCHC RDW 15.6 H MCV MCH Lymph % (Auto) 9.9 L Armstrong % (Auto) 9.7 H Armstrong # 1.6 H Eos # Lymph # (Auto) Armstrong # (Auto) Eos # (Auto) Seg Neutrophils % 78.0 H Seg Neuts % (Manual) Baso # (Auto) Lymphocytes % (Manual) Monocytes % (Manual) Eosinophils % (Manual) Basophils % (Manual) Seg Neutrophils # 12.7 H Seg Neutrophils # Man Lymphocytes # (Manual) Monocytes # (Manual) Eosinophils # (Manual) Nucleated RBC % Basophils # (Manual) PT INR APTT Heparin Anti-Xa Level ABG pH POC ABG pO2 ABG pO2 ABG HCO3 ABG O2 Saturation ABG Base Excess POC ABG pCO2 ABG Hemoglobin ABG Oxyhemoglobin ABG Glucose Oxyhemoglobin Sodium 146 H Potassium Chloride 107.2 H Carbon Dioxide BUN 27 H Creatinine 0.7 L Glucose 171 H POC Glucose 168 H Lactic Acid Calcium Phosphorus Magnesium AST ALT Lactate Dehydrogenase CK-MB (CK-2) C-Reactive Protein NT-Pro-B Natriuret Pep Total Protein Albumin Arterial Blood Glucose Urine WBC (Auto) 12/05/19 12/05/19 12/05/19 12:31 18:10 23:58 WBC RBC Hgb Hct MCHC RDW MCV MCH Lymph % (Auto) Armstrong % (Auto) Armstrong # Eos # Lymph # (Auto) Armstrong # (Auto) Eos # (Auto) Seg Neutrophils % Seg Neuts % (Manual) Baso # (Auto) Lymphocytes % (Manual) Monocytes % (Manual) Eosinophils % (Manual) Basophils % (Manual) Seg Neutrophils # Seg Neutrophils # Man Lymphocytes # (Manual) Monocytes # (Manual) Eosinophils # (Manual) Nucleated RBC % Basophils # (Manual) PT INR APTT Heparin Anti-Xa Level ABG pH POC ABG pO2 ABG pO2 ABG HCO3 ABG O2 Saturation ABG Base Excess POC ABG pCO2 ABG Hemoglobin ABG Oxyhemoglobin ABG Glucose Oxyhemoglobin Sodium Potassium Chloride Carbon Dioxide BUN Creatinine Glucose POC Glucose 159 H 198 H 115 H Lactic Acid Calcium Phosphorus Magnesium AST ALT Lactate Dehydrogenase CK-MB (CK-2) C-Reactive Protein NT-Pro-B Natriuret Pep Total Protein Albumin Arterial Blood Glucose Urine WBC (Auto) 12/06/19 12/06/19 12/06/19 05:24 05:24 05:25 WBC 14.9 H RBC Hgb 10.8 L Hct 34.0 L MCHC RDW 15.6 H MCV MCH Lymph % (Auto) 10.7 L Armstrong % (Auto) 8.3 H Armstrong # 1.2 H Eos # Lymph # (Auto) Armstrong # (Auto) Eos # (Auto) Seg Neutrophils % 78.7 H Seg Neuts % (Manual) Baso # (Auto) Lymphocytes % (Manual) Monocytes % (Manual) Eosinophils % (Manual) Basophils % (Manual) Seg Neutrophils # 11.7 H Seg Neutrophils # Man Lymphocytes # (Manual) Monocytes # (Manual) Eosinophils # (Manual) Nucleated RBC % Basophils # (Manual) PT INR APTT Heparin Anti-Xa Level ABG pH POC ABG pO2 ABG pO2 ABG HCO3 ABG O2 Saturation ABG Base Excess POC ABG pCO2 ABG Hemoglobin ABG Oxyhemoglobin ABG Glucose Oxyhemoglobin Sodium 148 H Potassium 5.1 H Chloride 107.6 H Carbon Dioxide BUN 27 H Creatinine 0.7 L Glucose 155 H POC Glucose 157 H Lactic Acid Calcium Phosphorus Magnesium AST ALT Lactate Dehydrogenase CK-MB (CK-2) C-Reactive Protein NT-Pro-B Natriuret Pep Total Protein Albumin Arterial Blood Glucose Urine WBC (Auto) 12/07/19 12/07/19 12/07/19 00:13 05:34 11:33 WBC RBC Hgb Hct MCHC RDW MCV MCH Lymph % (Auto) Armstrong % (Auto) Armstrong # Eos # Lymph # (Auto) Armstrong # (Auto) Eos # (Auto) Seg Neutrophils % Seg Neuts % (Manual) Baso # (Auto) Lymphocytes % (Manual) Monocytes % (Manual) Eosinophils % (Manual) Basophils % (Manual) Seg Neutrophils # Seg Neutrophils # Man Lymphocytes # (Manual) Monocytes # (Manual) Eosinophils # (Manual) Nucleated RBC % Basophils # (Manual) PT INR APTT Heparin Anti-Xa Level ABG pH POC ABG pO2 ABG pO2 ABG HCO3 ABG O2 Saturation ABG Base Excess POC ABG pCO2 ABG Hemoglobin ABG Oxyhemoglobin ABG Glucose Oxyhemoglobin Sodium Potassium Chloride Carbon Dioxide BUN Creatinine Glucose POC Glucose 142 H 111 H 169 H Lactic Acid Calcium Phosphorus Magnesium AST ALT Lactate Dehydrogenase CK-MB (CK-2) C-Reactive Protein NT-Pro-B Natriuret Pep Total Protein Albumin Arterial Blood Glucose Urine WBC (Auto) 12/07/19 12/07/19 12/07/19 12:41 13:25 18:19 WBC 12.4 H RBC 3.53 L Hgb 10.2 L Hct 32.1 L MCHC RDW 15.3 H MCV MCH Lymph % (Auto) 10.6 L Armstrong % (Auto) 7.8 H Armstrong # 1.0 H Eos # Lymph # (Auto) Armstrong # (Auto) Eos # (Auto) Seg Neutrophils % 77.6 H Seg Neuts % (Manual) Baso # (Auto) Lymphocytes % (Manual) Monocytes % (Manual) Eosinophils % (Manual) Basophils % (Manual) Seg Neutrophils # 9.6 H Seg Neutrophils # Man Lymphocytes # (Manual) Monocytes # (Manual) Eosinophils # (Manual) Nucleated RBC % Basophils # (Manual) PT INR APTT Heparin Anti-Xa Level ABG pH POC ABG pO2 ABG pO2 ABG HCO3 ABG O2 Saturation ABG Base Excess POC ABG pCO2 ABG Hemoglobin ABG Oxyhemoglobin ABG Glucose Oxyhemoglobin Sodium 149 H Potassium Chloride 108.4 H Carbon Dioxide BUN 26 H Creatinine 0.6 L Glucose 149 H POC Glucose 164 H Lactic Acid Calcium Phosphorus Magnesium 2.60 H AST 121 H ALT 145 H Lactate Dehydrogenase CK-MB (CK-2) C-Reactive Protein NT-Pro-B Natriuret Pep Total Protein Albumin 2.6 L Arterial Blood Glucose Urine WBC (Auto) 12/07/19 12/08/19 12/08/19 22:25 00:02 03:55 WBC 13.3 H RBC 3.40 L Hgb 9.7 L Hct 30.8 L MCHC 31 L RDW 15.5 H MCV MCH Lymph % (Auto) Armstrong % (Auto) 8.1 H Armstrong # 1.1 H Eos # Lymph # (Auto) Armstrong # (Auto) Eos # (Auto) Seg Neutrophils % 73.0 H Seg Neuts % (Manual) Baso # (Auto) Lymphocytes % (Manual) Monocytes % (Manual) Eosinophils % (Manual) Basophils % (Manual) Seg Neutrophils # 9.7 H Seg Neutrophils # Man Lymphocytes # (Manual) Monocytes # (Manual) Eosinophils # (Manual) Nucleated RBC % Basophils # (Manual) PT INR APTT Heparin Anti-Xa Level 0.12 L ABG pH POC ABG pO2 ABG pO2 ABG HCO3 ABG O2 Saturation ABG Base Excess POC ABG pCO2 ABG Hemoglobin ABG Oxyhemoglobin ABG Glucose Oxyhemoglobin Sodium Potassium Chloride Carbon Dioxide BUN Creatinine Glucose POC Glucose 151 H Lactic Acid Calcium Phosphorus Magnesium AST ALT Lactate Dehydrogenase CK-MB (CK-2) C-Reactive Protein NT-Pro-B Natriuret Pep Total Protein Albumin Arterial Blood Glucose Urine WBC (Auto) 12/08/19 12/08/19 12/08/19 03:55 05:21 06:01 WBC RBC Hgb Hct MCHC RDW MCV MCH Lymph % (Auto) Armstrong % (Auto) Armstrong # Eos # Lymph # (Auto) Armstrong # (Auto) Eos # (Auto) Seg Neutrophils % Seg Neuts % (Manual) Baso # (Auto) Lymphocytes % (Manual) Monocytes % (Manual) Eosinophils % (Manual) Basophils % (Manual) Seg Neutrophils # Seg Neutrophils # Man Lymphocytes # (Manual) Monocytes # (Manual) Eosinophils # (Manual) Nucleated RBC % Basophils # (Manual) PT INR APTT Heparin Anti-Xa Level 0.20 L ABG pH POC ABG pO2 ABG pO2 ABG HCO3 ABG O2 Saturation ABG Base Excess POC ABG pCO2 ABG Hemoglobin ABG Oxyhemoglobin ABG Glucose Oxyhemoglobin Sodium 149 H Potassium Chloride 108.0 H Carbon Dioxide BUN 28 H Creatinine 0.6 L Glucose 144 H POC Glucose 143 H Lactic Acid Calcium Phosphorus Magnesium AST 98 H ALT 145 H Lactate Dehydrogenase CK-MB (CK-2) C-Reactive Protein NT-Pro-B Natriuret Pep Total Protein 6.0 L Albumin 2.4 L Arterial Blood Glucose Urine WBC (Auto) 09/12/08/19 12/08/19 12:08 18:11 23:53 WBC RBC Hgb Hct MCHC RDW MCV MCH Lymph % (Auto) Armstrong % (Auto) Armstrong # Eos # Lymph # (Auto) Armstrong # (Auto) Eos # (Auto) Seg Neutrophils % Seg Neuts % (Manual) Baso # (Auto) Lymphocytes % (Manual) Monocytes % (Manual) Eosinophils % (Manual) Basophils % (Manual) Seg Neutrophils # Seg Neutrophils # Man Lymphocytes # (Manual) Monocytes # (Manual) Eosinophils # (Manual) Nucleated RBC % Basophils # (Manual) PT INR APTT Heparin Anti-Xa Level ABG pH POC ABG pO2 ABG pO2 ABG HCO3 ABG O2 Saturation ABG Base Excess POC ABG pCO2 ABG Hemoglobin ABG Oxyhemoglobin ABG Glucose Oxyhemoglobin Sodium Potassium Chloride Carbon Dioxide BUN Creatinine Glucose POC Glucose 172 H 122 H 162 H Lactic Acid Calcium Phosphorus Magnesium AST ALT Lactate Dehydrogenase CK-MB (CK-2) C-Reactive Protein NT-Pro-B Natriuret Pep Total Protein Albumin Arterial Blood Glucose Urine WBC (Auto) 12/09/19 12/09/19 12/09/19 04:03 04:03 05:53 WBC RBC Hgb 9.1 L Hct 28.9 L MCHC RDW MCV MCH Lymph % (Auto) Armstrong % (Auto) Armstrong # Eos # Lymph # (Auto) Armstrong # (Auto) Eos # (Auto) Seg Neutrophils % Seg Neuts % (Manual) Baso # (Auto) Lymphocytes % (Manual) Monocytes % (Manual) Eosinophils % (Manual) Basophils % (Manual) Seg Neutrophils # Seg Neutrophils # Man Lymphocytes # (Manual) Monocytes # (Manual) Eosinophils # (Manual) Nucleated RBC % Basophils # (Manual) PT INR APTT Heparin Anti-Xa Level 0.15 L ABG pH POC ABG pO2 ABG pO2 ABG HCO3 ABG O2 Saturation ABG Base Excess POC ABG pCO2 ABG Hemoglobin ABG Oxyhemoglobin ABG Glucose Oxyhemoglobin Sodium Potassium Chloride Carbon Dioxide BUN Creatinine Glucose POC Glucose 124 H Lactic Acid Calcium Phosphorus Magnesium AST ALT Lactate Dehydrogenase CK-MB (CK-2) C-Reactive Protein NT-Pro-B Natriuret Pep Total Protein Albumin Arterial Blood Glucose Urine WBC (Auto) 12/09/19 12/09/19 12/10/19 09:43 12:41 00:13 WBC RBC Hgb Hct MCHC RDW MCV MCH Lymph % (Auto) Armstrong % (Auto) Armstrong # Eos # Lymph # (Auto) Armstrong # (Auto) Eos # (Auto) Seg Neutrophils % Seg Neuts % (Manual) Baso # (Auto) Lymphocytes % (Manual) Monocytes % (Manual) Eosinophils % (Manual) Basophils % (Manual) Seg Neutrophils # Seg Neutrophils # Man Lymphocytes # (Manual) Monocytes # (Manual) Eosinophils # (Manual) Nucleated RBC % Basophils # (Manual) PT INR APTT Heparin Anti-Xa Level ABG pH POC ABG pO2 ABG pO2 ABG HCO3 ABG O2 Saturation ABG Base Excess POC ABG pCO2 ABG Hemoglobin ABG Oxyhemoglobin ABG Glucose Oxyhemoglobin Sodium Potassium Chloride Carbon Dioxide BUN 25 H Creatinine 0.6 L Glucose 131 H POC Glucose 109 H 120 H Lactic Acid Calcium Phosphorus Magnesium AST ALT Lactate Dehydrogenase CK-MB (CK-2) C-Reactive Protein NT-Pro-B Natriuret Pep Total Protein Albumin Arterial Blood Glucose Urine WBC (Auto) 12/10/19 12/10/19 12/10/19 04:14 04:14 12:00 WBC 13.3 H RBC 3.34 L Hgb 9.6 L Hct 30.4 L MCHC RDW 15.4 H MCV MCH Lymph % (Auto) Armstrong % (Auto) Armstrong # Eos # Lymph # (Auto) Armstrong # (Auto) Eos # (Auto) Seg Neutrophils % Seg Neuts % (Manual) 75.0 H Baso # (Auto) Lymphocytes % (Manual) 13.0 L Monocytes % (Manual) 8.0 H Eosinophils % (Manual) Basophils % (Manual) 2.0 H Seg Neutrophils # Seg Neutrophils # Man 10.0 H Lymphocytes # (Manual) Monocytes # (Manual) 1.1 H Eosinophils # (Manual) Nucleated RBC % Basophils # (Manual) 0.3 H PT INR APTT Heparin Anti-Xa Level ABG pH POC ABG pO2 ABG pO2 ABG HCO3 ABG O2 Saturation ABG Base Excess POC ABG pCO2 ABG Hemoglobin ABG Oxyhemoglobin ABG Glucose Oxyhemoglobin Sodium 147 H Potassium Chloride 108.3 H Carbon Dioxide BUN 21 H Creatinine 0.6 L Glucose 104 H POC Glucose 133 H Lactic Acid Calcium Phosphorus Magnesium AST ALT Lactate Dehydrogenase CK-MB (CK-2) C-Reactive Protein NT-Pro-B Natriuret Pep Total Protein Albumin Arterial Blood Glucose Urine WBC (Auto) 12/10/19 12/10/19 12/11/19 18:44 21:20 00:08 WBC 14.9 H RBC 3.36 L Hgb 9.6 L Hct 30.5 L MCHC RDW 15.4 H MCV MCH Lymph % (Auto) Armstrong % (Auto) Armstrong # Eos # Lymph # (Auto) Armstrong # (Auto) Eos # (Auto) Seg Neutrophils % Seg Neuts % (Manual) Baso # (Auto) Lymphocytes % (Manual) Monocytes % (Manual) Eosinophils % (Manual) Basophils % (Manual) Seg Neutrophils # Seg Neutrophils # Man Lymphocytes # (Manual) Monocytes # (Manual) Eosinophils # (Manual) Nucleated RBC % Basophils # (Manual) PT INR APTT Heparin Anti-Xa Level ABG pH POC ABG pO2 ABG pO2 ABG HCO3 ABG O2 Saturation ABG Base Excess POC ABG pCO2 ABG Hemoglobin ABG Oxyhemoglobin ABG Glucose Oxyhemoglobin Sodium Potassium Chloride Carbon Dioxide BUN Creatinine Glucose POC Glucose 119 H 134 H Lactic Acid Calcium Phosphorus Magnesium AST ALT Lactate Dehydrogenase CK-MB (CK-2) C-Reactive Protein NT-Pro-B Natriuret Pep Total Protein Albumin Arterial Blood Glucose Urine WBC (Auto) 12/11/19 12/11/19 12/11/19 03:54 07:28 08:36 WBC 11.9 H RBC 3.25 L Hgb 9.6 L Hct 29.2 L MCHC RDW 15.7 H MCV MCH Lymph % (Auto) Armstrong % (Auto) Armstrong # Eos # Lymph # (Auto) Armstrong # (Auto) Eos # (Auto) Seg Neutrophils % Seg Neuts % (Manual) Baso # (Auto) Lymphocytes % (Manual) Monocytes % (Manual) Eosinophils % (Manual) Basophils % (Manual) Seg Neutrophils # Seg Neutrophils # Man Lymphocytes # (Manual) Monocytes # (Manual) Eosinophils # (Manual) Nucleated RBC % Basophils # (Manual) PT INR APTT Heparin Anti-Xa Level 0.10 L 0.16 L ABG pH POC ABG pO2 ABG pO2 ABG HCO3 ABG O2 Saturation ABG Base Excess POC ABG pCO2 ABG Hemoglobin ABG Oxyhemoglobin ABG Glucose Oxyhemoglobin Sodium Potassium Chloride Carbon Dioxide BUN Creatinine Glucose POC Glucose Lactic Acid Calcium Phosphorus Magnesium AST ALT Lactate Dehydrogenase CK-MB (CK-2) C-Reactive Protein NT-Pro-B Natriuret Pep Total Protein Albumin Arterial Blood Glucose Urine WBC (Auto) 12/11/19 12/11/19 12/11/19 08:36 11:45 17:15 WBC RBC Hgb Hct MCHC RDW MCV MCH Lymph % (Auto) Armstrong % (Auto) Armstrong # Eos # Lymph # (Auto) Armstrong # (Auto) Eos # (Auto) Seg Neutrophils % Seg Neuts % (Manual) Baso # (Auto) Lymphocytes % (Manual) Monocytes % (Manual) Eosinophils % (Manual) Basophils % (Manual) Seg Neutrophils # Seg Neutrophils # Man Lymphocytes # (Manual) Monocytes # (Manual) Eosinophils # (Manual) Nucleated RBC % Basophils # (Manual) PT INR APTT Heparin Anti-Xa Level ABG pH POC ABG pO2 ABG pO2 ABG HCO3 ABG O2 Saturation ABG Base Excess POC ABG pCO2 ABG Hemoglobin ABG Oxyhemoglobin ABG Glucose Oxyhemoglobin Sodium Potassium Chloride Carbon Dioxide BUN Creatinine 0.5 L Glucose 128 H POC Glucose 136 H 109 H Lactic Acid Calcium Phosphorus Magnesium AST ALT Lactate Dehydrogenase CK-MB (CK-2) C-Reactive Protein NT-Pro-B Natriuret Pep Total Protein Albumin Arterial Blood Glucose Urine WBC (Auto) 12/12/19 12/12/19 12/12/19 00:03 05:53 05:53 WBC RBC Hgb 8.8 L Hct 27.6 L MCHC RDW MCV MCH Lymph % (Auto) Armstrong % (Auto) Armstrong # Eos # Lymph # (Auto) Armstrong # (Auto) Eos # (Auto) Seg Neutrophils % Seg Neuts % (Manual) Baso # (Auto) Lymphocytes % (Manual) Monocytes % (Manual) Eosinophils % (Manual) Basophils % (Manual) Seg Neutrophils # Seg Neutrophils # Man Lymphocytes # (Manual) Monocytes # (Manual) Eosinophils # (Manual) Nucleated RBC % Basophils # (Manual) PT INR APTT Heparin Anti-Xa Level 0.22 L ABG pH POC ABG pO2 ABG pO2 ABG HCO3 ABG O2 Saturation ABG Base Excess POC ABG pCO2 ABG Hemoglobin ABG Oxyhemoglobin ABG Glucose Oxyhemoglobin Sodium Potassium Chloride Carbon Dioxide BUN Creatinine Glucose POC Glucose 116 H Lactic Acid Calcium Phosphorus Magnesium AST ALT Lactate Dehydrogenase CK-MB (CK-2) C-Reactive Protein NT-Pro-B Natriuret Pep Total Protein Albumin Arterial Blood Glucose Urine WBC (Auto) 12/12/19 12/12/19 12/12/19 09:38 12:18 17:44 WBC RBC Hgb Hct MCHC RDW MCV MCH Lymph % (Auto) Armstrong % (Auto) Armstrong # Eos # Lymph # (Auto) Armstrong # (Auto) Eos # (Auto) Seg Neutrophils % Seg Neuts % (Manual) Baso # (Auto) Lymphocytes % (Manual) Monocytes % (Manual) Eosinophils % (Manual) Basophils % (Manual) Seg Neutrophils # Seg Neutrophils # Man Lymphocytes # (Manual) Monocytes # (Manual) Eosinophils # (Manual) Nucleated RBC % Basophils # (Manual) PT INR APTT Heparin Anti-Xa Level ABG pH POC ABG pO2 ABG pO2 ABG HCO3 ABG O2 Saturation ABG Base Excess POC ABG pCO2 ABG Hemoglobin ABG Oxyhemoglobin ABG Glucose Oxyhemoglobin Sodium Potassium Chloride Carbon Dioxide BUN Creatinine Glucose POC Glucose 115 H 146 H 146 H Lactic Acid Calcium Phosphorus Magnesium AST ALT Lactate Dehydrogenase CK-MB (CK-2) C-Reactive Protein NT-Pro-B Natriuret Pep Total Protein Albumin Arterial Blood Glucose Urine WBC (Auto) 12/12/19 12/13/19 12/13/19 23:33 05:32 05:32 WBC 13.1 H RBC 3.27 L Hgb 9.5 L Hct 29.3 L MCHC RDW 15.6 H MCV MCH Lymph % (Auto) Armstrong % (Auto) Armstrong # Eos # Lymph # (Auto) Armstrong # (Auto) Eos # (Auto) Seg Neutrophils % Seg Neuts % (Manual) 74.0 H Baso # (Auto) Lymphocytes % (Manual) 8.0 L Monocytes % (Manual) 9.0 H Eosinophils % (Manual) 5.0 H Basophils % (Manual) Seg Neutrophils # Seg Neutrophils # Man 9.7 H Lymphocytes # (Manual) 1.0 L Monocytes # (Manual) 1.2 H Eosinophils # (Manual) 0.7 H Nucleated RBC % Basophils # (Manual) PT INR APTT Heparin Anti-Xa Level 0.20 L ABG pH POC ABG pO2 ABG pO2 ABG HCO3 ABG O2 Saturation ABG Base Excess POC ABG pCO2 ABG Hemoglobin ABG Oxyhemoglobin ABG Glucose Oxyhemoglobin Sodium Potassium Chloride Carbon Dioxide BUN Creatinine Glucose POC Glucose 126 H Lactic Acid Calcium Phosphorus Magnesium AST ALT Lactate Dehydrogenase CK-MB (CK-2) C-Reactive Protein NT-Pro-B Natriuret Pep Total Protein Albumin Arterial Blood Glucose Urine WBC (Auto) 12/13/19 12/13/19 12/13/19 05:32 05:46 11:57 WBC RBC Hgb Hct MCHC RDW MCV MCH Lymph % (Auto) Armstrong % (Auto) Armstrong # Eos # Lymph # (Auto) Armstrong # (Auto) Eos # (Auto) Seg Neutrophils % Seg Neuts % (Manual) Baso # (Auto) Lymphocytes % (Manual) Monocytes % (Manual) Eosinophils % (Manual) Basophils % (Manual) Seg Neutrophils # Seg Neutrophils # Man Lymphocytes # (Manual) Monocytes # (Manual) Eosinophils # (Manual) Nucleated RBC % Basophils # (Manual) PT INR APTT Heparin Anti-Xa Level ABG pH POC ABG pO2 ABG pO2 ABG HCO3 ABG O2 Saturation ABG Base Excess POC ABG pCO2 ABG Hemoglobin ABG Oxyhemoglobin ABG Glucose Oxyhemoglobin Sodium Potassium Chloride Carbon Dioxide 31 H BUN Creatinine 0.6 L Glucose 114 H POC Glucose 118 H 133 H Lactic Acid Calcium Phosphorus Magnesium AST ALT Lactate Dehydrogenase CK-MB (CK-2) C-Reactive Protein NT-Pro-B Natriuret Pep Total Protein Albumin Arterial Blood Glucose Urine WBC (Auto) 12/13/19 12/13/19 12/14/19 17:44 23:46 05:32 WBC RBC Hgb Hct MCHC RDW MCV MCH Lymph % (Auto) Armstrong % (Auto) Armstrong # Eos # Lymph # (Auto) Armstrong # (Auto) Eos # (Auto) Seg Neutrophils % Seg Neuts % (Manual) Baso # (Auto) Lymphocytes % (Manual) Monocytes % (Manual) Eosinophils % (Manual) Basophils % (Manual) Seg Neutrophils # Seg Neutrophils # Man Lymphocytes # (Manual) Monocytes # (Manual) Eosinophils # (Manual) Nucleated RBC % Basophils # (Manual) PT INR APTT Heparin Anti-Xa Level ABG pH POC ABG pO2 ABG pO2 ABG HCO3 ABG O2 Saturation ABG Base Excess POC ABG pCO2 ABG Hemoglobin ABG Oxyhemoglobin ABG Glucose Oxyhemoglobin Sodium Potassium Chloride Carbon Dioxide BUN Creatinine Glucose POC Glucose 161 H 126 H 139 H Lactic Acid Calcium Phosphorus Magnesium AST ALT Lactate Dehydrogenase CK-MB (CK-2) C-Reactive Protein NT-Pro-B Natriuret Pep Total Protein Albumin Arterial Blood Glucose Urine WBC (Auto) 12/14/19 12/14/19 12/14/19 06:03 06:03 09:37 WBC RBC Hgb 9.6 L Hct 30.4 L MCHC RDW MCV MCH Lymph % (Auto) Armstrong % (Auto) Armstrong # Eos # Lymph # (Auto) Armstrong # (Auto) Eos # (Auto) Seg Neutrophils % Seg Neuts % (Manual) Baso # (Auto) Lymphocytes % (Manual) Monocytes % (Manual) Eosinophils % (Manual) Basophils % (Manual) Seg Neutrophils # Seg Neutrophils # Man Lymphocytes # (Manual) Monocytes # (Manual) Eosinophils # (Manual) Nucleated RBC % Basophils # (Manual) PT INR APTT Heparin Anti-Xa Level 0.24 L ABG pH POC ABG pO2 ABG pO2 ABG HCO3 ABG O2 Saturation ABG Base Excess POC ABG pCO2 ABG Hemoglobin ABG Oxyhemoglobin ABG Glucose Oxyhemoglobin Sodium Potassium Chloride Carbon Dioxide BUN Creatinine 0.6 L Glucose 162 H POC Glucose Lactic Acid Calcium Phosphorus Magnesium AST 71 H ALT 118 H Lactate Dehydrogenase CK-MB (CK-2) C-Reactive Protein NT-Pro-B Natriuret Pep Total Protein 6.2 L Albumin 2.3 L Arterial Blood Glucose Urine WBC (Auto) 12/14/19 12/14/19 12/15/19 12:06 18:18 00:19 WBC RBC Hgb Hct MCHC RDW MCV MCH Lymph % (Auto) Armstrong % (Auto) Armstrong # Eos # Lymph # (Auto) Armstrong # (Auto) Eos # (Auto) Seg Neutrophils % Seg Neuts % (Manual) Baso # (Auto) Lymphocytes % (Manual) Monocytes % (Manual) Eosinophils % (Manual) Basophils % (Manual) Seg Neutrophils # Seg Neutrophils # Man Lymphocytes # (Manual) Monocytes # (Manual) Eosinophils # (Manual) Nucleated RBC % Basophils # (Manual) PT INR APTT Heparin Anti-Xa Level ABG pH POC ABG pO2 ABG pO2 ABG HCO3 ABG O2 Saturation ABG Base Excess POC ABG pCO2 ABG Hemoglobin ABG Oxyhemoglobin ABG Glucose Oxyhemoglobin Sodium Potassium Chloride Carbon Dioxide BUN Creatinine Glucose POC Glucose 147 H 166 H 123 H Lactic Acid Calcium Phosphorus Magnesium AST ALT Lactate Dehydrogenase CK-MB (CK-2) C-Reactive Protein NT-Pro-B Natriuret Pep Total Protein Albumin Arterial Blood Glucose Urine WBC (Auto) 12/15/19 12/15/19 12/15/19 05:28 05:29 05:29 WBC 14.9 H RBC 3.19 L Hgb 9.1 L Hct 28.7 L MCHC RDW 16.0 H MCV MCH Lymph % (Auto) Armstrong % (Auto) Armstrong # Eos # Lymph # (Auto) Armstrong # (Auto) Eos # (Auto) Seg Neutrophils % Seg Neuts % (Manual) Baso # (Auto) Lymphocytes % (Manual) Monocytes % (Manual) Eosinophils % (Manual) Basophils % (Manual) Seg Neutrophils # Seg Neutrophils # Man Lymphocytes # (Manual) Monocytes # (Manual) Eosinophils # (Manual) Nucleated RBC % Basophils # (Manual) PT INR APTT Heparin Anti-Xa Level 0.19 L ABG pH POC ABG pO2 ABG pO2 ABG HCO3 ABG O2 Saturation ABG Base Excess POC ABG pCO2 ABG Hemoglobin ABG Oxyhemoglobin ABG Glucose Oxyhemoglobin Sodium Potassium Chloride Carbon Dioxide BUN Creatinine 0.6 L Glucose 110 H POC Glucose Lactic Acid Calcium Phosphorus Magnesium AST ALT Lactate Dehydrogenase CK-MB (CK-2) C-Reactive Protein NT-Pro-B Natriuret Pep Total Protein Albumin Arterial Blood Glucose Urine WBC (Auto) 12/15/19 12/15/19 12/15/19 05:53 11:50 17:26 WBC RBC Hgb Hct MCHC RDW MCV MCH Lymph % (Auto) Armstrong % (Auto) Armstrong # Eos # Lymph # (Auto) Armstrong # (Auto) Eos # (Auto) Seg Neutrophils % Seg Neuts % (Manual) Baso # (Auto) Lymphocytes % (Manual) Monocytes % (Manual) Eosinophils % (Manual) Basophils % (Manual) Seg Neutrophils # Seg Neutrophils # Man Lymphocytes # (Manual) Monocytes # (Manual) Eosinophils # (Manual) Nucleated RBC % Basophils # (Manual) PT INR APTT Heparin Anti-Xa Level ABG pH POC ABG pO2 ABG pO2 ABG HCO3 ABG O2 Saturation ABG Base Excess POC ABG pCO2 ABG Hemoglobin ABG Oxyhemoglobin ABG Glucose Oxyhemoglobin Sodium Potassium Chloride Carbon Dioxide BUN Creatinine Glucose POC Glucose 119 H 132 H 128 H Lactic Acid Calcium Phosphorus Magnesium AST ALT Lactate Dehydrogenase CK-MB (CK-2) C-Reactive Protein NT-Pro-B Natriuret Pep Total Protein Albumin Arterial Blood Glucose Urine WBC (Auto) 12/15/19 12/16/19 12/16/19 23:11 05:30 05:46 WBC RBC Hgb 8.8 L Hct 27.9 L MCHC RDW MCV MCH Lymph % (Auto) Armstrong % (Auto) Armstrong # Eos # Lymph # (Auto) Armstrong # (Auto) Eos # (Auto) Seg Neutrophils % Seg Neuts % (Manual) Baso # (Auto) Lymphocytes % (Manual) Monocytes % (Manual) Eosinophils % (Manual) Basophils % (Manual) Seg Neutrophils # Seg Neutrophils # Man Lymphocytes # (Manual) Monocytes # (Manual) Eosinophils # (Manual) Nucleated RBC % Basophils # (Manual) PT INR APTT Heparin Anti-Xa Level ABG pH POC ABG pO2 ABG pO2 ABG HCO3 ABG O2 Saturation ABG Base Excess POC ABG pCO2 ABG Hemoglobin ABG Oxyhemoglobin ABG Glucose Oxyhemoglobin Sodium Potassium Chloride Carbon Dioxide BUN Creatinine Glucose POC Glucose 150 H 134 H Lactic Acid Calcium Phosphorus Magnesium AST ALT Lactate Dehydrogenase CK-MB (CK-2) C-Reactive Protein NT-Pro-B Natriuret Pep Total Protein Albumin Arterial Blood Glucose Urine WBC (Auto) 12/16/19 12/16/19 12/16/19 05:46 05:46 11:44 WBC RBC Hgb Hct MCHC RDW MCV MCH Lymph % (Auto) Armstrong % (Auto) Armstrong # Eos # Lymph # (Auto) Armstrong # (Auto) Eos # (Auto) Seg Neutrophils % Seg Neuts % (Manual) Baso # (Auto) Lymphocytes % (Manual) Monocytes % (Manual) Eosinophils % (Manual) Basophils % (Manual) Seg Neutrophils # Seg Neutrophils # Man Lymphocytes # (Manual) Monocytes # (Manual) Eosinophils # (Manual) Nucleated RBC % Basophils # (Manual) PT INR APTT Heparin Anti-Xa Level 0.20 L ABG pH POC ABG pO2 ABG pO2 ABG HCO3 ABG O2 Saturation ABG Base Excess POC ABG pCO2 ABG Hemoglobin ABG Oxyhemoglobin ABG Glucose Oxyhemoglobin Sodium Potassium Chloride Carbon Dioxide 31 H BUN Creatinine 0.5 L Glucose 147 H POC Glucose 164 H Lactic Acid Calcium Phosphorus Magnesium AST ALT Lactate Dehydrogenase CK-MB (CK-2) C-Reactive Protein NT-Pro-B Natriuret Pep Total Protein Albumin Arterial Blood Glucose Urine WBC (Auto) 12/16/19 12/16/19 12/17/19 17:17 23:49 05:30 WBC 13.9 H RBC 3.27 L Hgb 9.4 L Hct 29.2 L MCHC RDW 16.0 H MCV MCH Lymph % (Auto) Armstrong % (Auto) 8.8 H Armstrong # Eos # Lymph # (Auto) Armstrong # (Auto) 1.2 H Eos # (Auto) 0.5 H Seg Neutrophils % 70.5 H Seg Neuts % (Manual) Baso # (Auto) 0.2 H Lymphocytes % (Manual) Monocytes % (Manual) Eosinophils % (Manual) Basophils % (Manual) Seg Neutrophils # 9.8 H Seg Neutrophils # Man Lymphocytes # (Manual) Monocytes # (Manual) Eosinophils # (Manual) Nucleated RBC % Basophils # (Manual) PT INR APTT Heparin Anti-Xa Level ABG pH POC ABG pO2 ABG pO2 ABG HCO3 ABG O2 Saturation ABG Base Excess POC ABG pCO2 ABG Hemoglobin ABG Oxyhemoglobin ABG Glucose Oxyhemoglobin Sodium Potassium Chloride Carbon Dioxide BUN Creatinine Glucose POC Glucose 162 H 144 H Lactic Acid Calcium Phosphorus Magnesium AST ALT Lactate Dehydrogenase CK-MB (CK-2) C-Reactive Protein NT-Pro-B Natriuret Pep Total Protein Albumin Arterial Blood Glucose Urine WBC (Auto) 12/17/19 12/17/19 12/17/19 05:30 06:06 11:50 WBC RBC Hgb Hct MCHC RDW MCV MCH Lymph % (Auto) Armstrong % (Auto) Armstrong # Eos # Lymph # (Auto) Armstrong # (Auto) Eos # (Auto) Seg Neutrophils % Seg Neuts % (Manual) Baso # (Auto) Lymphocytes % (Manual) Monocytes % (Manual) Eosinophils % (Manual) Basophils % (Manual) Seg Neutrophils # Seg Neutrophils # Man Lymphocytes # (Manual) Monocytes # (Manual) Eosinophils # (Manual) Nucleated RBC % Basophils # (Manual) PT INR APTT Heparin Anti-Xa Level ABG pH POC ABG pO2 ABG pO2 ABG HCO3 ABG O2 Saturation ABG Base Excess POC ABG pCO2 ABG Hemoglobin ABG Oxyhemoglobin ABG Glucose Oxyhemoglobin Sodium Potassium Chloride 97.4 L Carbon Dioxide 32 H BUN Creatinine 0.5 L Glucose 135 H POC Glucose 151 H 140 H Lactic Acid Calcium Phosphorus Magnesium AST ALT Lactate Dehydrogenase CK-MB (CK-2) C-Reactive Protein NT-Pro-B Natriuret Pep Total Protein Albumin Arterial Blood Glucose Urine WBC (Auto) 12/17/19 12/17/19 12/18/19 17:50 23:46 05:17 WBC RBC Hgb 8.8 L Hct 28.0 L MCHC RDW MCV MCH Lymph % (Auto) Armstrong % (Auto) Armstrong # Eos # Lymph # (Auto) Armstrong # (Auto) Eos # (Auto) Seg Neutrophils % Seg Neuts % (Manual) Baso # (Auto) Lymphocytes % (Manual) Monocytes % (Manual) Eosinophils % (Manual) Basophils % (Manual) Seg Neutrophils # Seg Neutrophils # Man Lymphocytes # (Manual) Monocytes # (Manual) Eosinophils # (Manual) Nucleated RBC % Basophils # (Manual) PT INR APTT Heparin Anti-Xa Level ABG pH POC ABG pO2 ABG pO2 ABG HCO3 ABG O2 Saturation ABG Base Excess POC ABG pCO2 ABG Hemoglobin ABG Oxyhemoglobin ABG Glucose Oxyhemoglobin Sodium Potassium Chloride Carbon Dioxide BUN Creatinine Glucose POC Glucose 158 H 150 H Lactic Acid Calcium Phosphorus Magnesium AST ALT Lactate Dehydrogenase CK-MB (CK-2) C-Reactive Protein NT-Pro-B Natriuret Pep Total Protein Albumin Arterial Blood Glucose Urine WBC (Auto) 12/18/19 12/18/19 12/18/19 05:17 05:49 11:12 WBC RBC Hgb Hct MCHC RDW MCV MCH Lymph % (Auto) Armstrong % (Auto) Armstrong # Eos # Lymph # (Auto) Armstrong # (Auto) Eos # (Auto) Seg Neutrophils % Seg Neuts % (Manual) Baso # (Auto) Lymphocytes % (Manual) Monocytes % (Manual) Eosinophils % (Manual) Basophils % (Manual) Seg Neutrophils # Seg Neutrophils # Man Lymphocytes # (Manual) Monocytes # (Manual) Eosinophils # (Manual) Nucleated RBC % Basophils # (Manual) PT INR APTT Heparin Anti-Xa Level 0.16 L ABG pH POC ABG pO2 ABG pO2 ABG HCO3 ABG O2 Saturation ABG Base Excess POC ABG pCO2 ABG Hemoglobin ABG Oxyhemoglobin ABG Glucose Oxyhemoglobin Sodium Potassium Chloride Carbon Dioxide BUN Creatinine Glucose POC Glucose 127 H 191 H Lactic Acid Calcium Phosphorus Magnesium AST ALT Lactate Dehydrogenase CK-MB (CK-2) C-Reactive Protein NT-Pro-B Natriuret Pep Total Protein Albumin Arterial Blood Glucose Urine WBC (Auto) 12/18/19 12/18/19 12/19/19 17:03 20:16 00:08 WBC RBC Hgb Hct MCHC RDW MCV MCH Lymph % (Auto) Armstrong % (Auto) Armstrong # Eos # Lymph # (Auto) Armstrong # (Auto) Eos # (Auto) Seg Neutrophils % Seg Neuts % (Manual) Baso # (Auto) Lymphocytes % (Manual) Monocytes % (Manual) Eosinophils % (Manual) Basophils % (Manual) Seg Neutrophils # Seg Neutrophils # Man Lymphocytes # (Manual) Monocytes # (Manual) Eosinophils # (Manual) Nucleated RBC % Basophils # (Manual) PT INR APTT Heparin Anti-Xa Level ABG pH POC ABG pO2 ABG pO2 ABG HCO3 ABG O2 Saturation ABG Base Excess POC ABG pCO2 ABG Hemoglobin ABG Oxyhemoglobin ABG Glucose Oxyhemoglobin Sodium Potassium Chloride Carbon Dioxide BUN Creatinine Glucose POC Glucose 133 H 128 H 129 H Lactic Acid Calcium Phosphorus Magnesium AST ALT Lactate Dehydrogenase CK-MB (CK-2) C-Reactive Protein NT-Pro-B Natriuret Pep Total Protein Albumin Arterial Blood Glucose Urine WBC (Auto) 12/19/19 12/19/19 12/19/19 04:45 04:45 05:35 WBC RBC Hgb Hct MCHC RDW MCV MCH Lymph % (Auto) Armstrong % (Auto) Armstrong # Eos # Lymph # (Auto) Armstrong # (Auto) Eos # (Auto) Seg Neutrophils % Seg Neuts % (Manual) Baso # (Auto) Lymphocytes % (Manual) Monocytes % (Manual) Eosinophils % (Manual) Basophils % (Manual) Seg Neutrophils # Seg Neutrophils # Man Lymphocytes # (Manual) Monocytes # (Manual) Eosinophils # (Manual) Nucleated RBC % Basophils # (Manual) PT INR APTT Heparin Anti-Xa Level 0.17 L ABG pH POC ABG pO2 ABG pO2 ABG HCO3 ABG O2 Saturation ABG Base Excess POC ABG pCO2 ABG Hemoglobin ABG Oxyhemoglobin ABG Glucose Oxyhemoglobin Sodium Potassium Chloride Carbon Dioxide BUN Creatinine Glucose POC Glucose 120 H Lactic Acid Calcium Phosphorus Magnesium AST ALT Lactate Dehydrogenase 228 H CK-MB (CK-2) C-Reactive Protein NT-Pro-B Natriuret Pep Total Protein Albumin Arterial Blood Glucose Urine WBC (Auto) 12/19/19 12/19/19 12/19/19 09:20 11:32 11:32 WBC 14.6 H RBC 3.08 L Hgb 9.0 L Hct 26.8 L MCHC RDW 15.9 H MCV MCH Lymph % (Auto) Armstrong % (Auto) Armstrong # Eos # Lymph # (Auto) Armstrong # (Auto) Eos # (Auto) Seg Neutrophils % Seg Neuts % (Manual) 82.0 H Baso # (Auto) Lymphocytes % (Manual) 10.0 L Monocytes % (Manual) Eosinophils % (Manual) Basophils % (Manual) Seg Neutrophils # Seg Neutrophils # Man 12.0 H Lymphocytes # (Manual) Monocytes # (Manual) 0.9 H Eosinophils # (Manual) Nucleated RBC % 1.0 H Basophils # (Manual) PT INR APTT Heparin Anti-Xa Level ABG pH 7.451 H POC ABG pO2 ABG pO2 62.6 L ABG HCO3 33.2 H ABG O2 Saturation 93.8 L ABG Base Excess 8.3 H POC ABG pCO2 ABG Hemoglobin 8.3 L ABG Oxyhemoglobin ABG Glucose Oxyhemoglobin 91.9 L Sodium Potassium Chloride 95.0 L Carbon Dioxide 33 H BUN 22 H Creatinine 0.6 L Glucose 150 H POC Glucose Lactic Acid Calcium Phosphorus Magnesium AST ALT Lactate Dehydrogenase CK-MB (CK-2) C-Reactive Protein NT-Pro-B Natriuret Pep Total Protein 6.2 L Albumin 2.4 L Arterial Blood Glucose Urine WBC (Auto) 12/19/19 12/19/19 12/20/19 11:56 18:17 00:09 WBC RBC Hgb Hct MCHC RDW MCV MCH Lymph % (Auto) Armstrong % (Auto) Armstrong # Eos # Lymph # (Auto) Armstrong # (Auto) Eos # (Auto) Seg Neutrophils % Seg Neuts % (Manual) Baso # (Auto) Lymphocytes % (Manual) Monocytes % (Manual) Eosinophils % (Manual) Basophils % (Manual) Seg Neutrophils # Seg Neutrophils # Man Lymphocytes # (Manual) Monocytes # (Manual) Eosinophils # (Manual) Nucleated RBC % Basophils # (Manual) PT INR APTT Heparin Anti-Xa Level ABG pH POC ABG pO2 ABG pO2 ABG HCO3 ABG O2 Saturation ABG Base Excess POC ABG pCO2 ABG Hemoglobin ABG Oxyhemoglobin ABG Glucose Oxyhemoglobin Sodium Potassium Chloride Carbon Dioxide BUN Creatinine Glucose POC Glucose 156 H 156 H 155 H Lactic Acid Calcium Phosphorus Magnesium AST ALT Lactate Dehydrogenase CK-MB (CK-2) C-Reactive Protein NT-Pro-B Natriuret Pep Total Protein Albumin Arterial Blood Glucose Urine WBC (Auto) 09/12/20/19 12/20/19 05:26 06:02 18:17 WBC RBC Hgb Hct MCHC RDW MCV MCH Lymph % (Auto) Armstrong % (Auto) Armstrong # Eos # Lymph # (Auto) Armstrong # (Auto) Eos # (Auto) Seg Neutrophils % Seg Neuts % (Manual) Baso # (Auto) Lymphocytes % (Manual) Monocytes % (Manual) Eosinophils % (Manual) Basophils % (Manual) Seg Neutrophils # Seg Neutrophils # Man Lymphocytes # (Manual) Monocytes # (Manual) Eosinophils # (Manual) Nucleated RBC % Basophils # (Manual) PT INR APTT Heparin Anti-Xa Level 0.19 L ABG pH POC ABG pO2 ABG pO2 ABG HCO3 ABG O2 Saturation ABG Base Excess POC ABG pCO2 ABG Hemoglobin ABG Oxyhemoglobin ABG Glucose Oxyhemoglobin Sodium Potassium Chloride Carbon Dioxide BUN Creatinine Glucose POC Glucose 137 H 128 H Lactic Acid Calcium Phosphorus Magnesium AST ALT Lactate Dehydrogenase CK-MB (CK-2) C-Reactive Protein NT-Pro-B Natriuret Pep Total Protein Albumin Arterial Blood Glucose Urine WBC (Auto) 12/20/19 12/21/19 12/21/19 23:34 05:31 05:31 WBC 12.7 H RBC 3.09 L Hgb 8.9 L Hct 27.4 L MCHC RDW 15.8 H MCV MCH Lymph % (Auto) 12.1 L Armstrong % (Auto) 7.8 H Armstrong # Eos # Lymph # (Auto) Armstrong # (Auto) 1.0 H Eos # (Auto) Seg Neutrophils % 77.1 H Seg Neuts % (Manual) Baso # (Auto) Lymphocytes % (Manual) Monocytes % (Manual) Eosinophils % (Manual) Basophils % (Manual) Seg Neutrophils # 9.8 H Seg Neutrophils # Man Lymphocytes # (Manual) Monocytes # (Manual) Eosinophils # (Manual) Nucleated RBC % Basophils # (Manual) PT INR APTT Heparin Anti-Xa Level ABG pH POC ABG pO2 ABG pO2 ABG HCO3 ABG O2 Saturation ABG Base Excess POC ABG pCO2 ABG Hemoglobin ABG Oxyhemoglobin ABG Glucose Oxyhemoglobin Sodium Potassium Chloride 96.9 L Carbon Dioxide 37 H BUN 27 H Creatinine 0.7 L Glucose 140 H POC Glucose 145 H Lactic Acid Calcium Phosphorus Magnesium AST ALT Lactate Dehydrogenase CK-MB (CK-2) C-Reactive Protein NT-Pro-B Natriuret Pep Total Protein Albumin Arterial Blood Glucose Urine WBC (Auto) 12/21/19 12/21/19 12/21/19 05:38 10:13 11:51 WBC RBC Hgb Hct MCHC RDW MCV MCH Lymph % (Auto) Armstrong % (Auto) Armstrong # Eos # Lymph # (Auto) Armstrong # (Auto) Eos # (Auto) Seg Neutrophils % Seg Neuts % (Manual) Baso # (Auto) Lymphocytes % (Manual) Monocytes % (Manual) Eosinophils % (Manual) Basophils % (Manual) Seg Neutrophils # Seg Neutrophils # Man Lymphocytes # (Manual) Monocytes # (Manual) Eosinophils # (Manual) Nucleated RBC % Basophils # (Manual) PT INR APTT 23.9 L Heparin Anti-Xa Level < 0.10 L ABG pH POC ABG pO2 ABG pO2 ABG HCO3 ABG O2 Saturation ABG Base Excess POC ABG pCO2 ABG Hemoglobin ABG Oxyhemoglobin ABG Glucose Oxyhemoglobin Sodium Potassium Chloride Carbon Dioxide BUN Creatinine Glucose POC Glucose 151 H 145 H Lactic Acid Calcium Phosphorus Magnesium AST ALT Lactate Dehydrogenase CK-MB (CK-2) C-Reactive Protein NT-Pro-B Natriuret Pep Total Protein Albumin Arterial Blood Glucose Urine WBC (Auto) 12/21/19 12/22/19 12/22/19 17:16 00:01 01:33 WBC RBC Hgb Hct MCHC RDW MCV MCH Lymph % (Auto) Armstrong % (Auto) Armstrong # Eos # Lymph # (Auto) Armstrong # (Auto) Eos # (Auto) Seg Neutrophils % Seg Neuts % (Manual) Baso # (Auto) Lymphocytes % (Manual) Monocytes % (Manual) Eosinophils % (Manual) Basophils % (Manual) Seg Neutrophils # Seg Neutrophils # Man Lymphocytes # (Manual) Monocytes # (Manual) Eosinophils # (Manual) Nucleated RBC % Basophils # (Manual) PT INR APTT Heparin Anti-Xa Level 0.10 L ABG pH POC ABG pO2 ABG pO2 ABG HCO3 ABG O2 Saturation ABG Base Excess POC ABG pCO2 ABG Hemoglobin ABG Oxyhemoglobin ABG Glucose Oxyhemoglobin Sodium Potassium Chloride Carbon Dioxide BUN Creatinine Glucose POC Glucose 167 H 179 H Lactic Acid Calcium Phosphorus Magnesium AST ALT Lactate Dehydrogenase CK-MB (CK-2) C-Reactive Protein NT-Pro-B Natriuret Pep Total Protein Albumin Arterial Blood Glucose Urine WBC (Auto) 0912/22/19 12/22/19 03:22 05:10 05:10 WBC 13.8 H RBC 3.20 L Hgb 8.9 L Hct 28.1 L MCHC RDW 15.9 H MCV MCH Lymph % (Auto) Armstrong % (Auto) Armstrong # Eos # Lymph # (Auto) Armstrong # (Auto) Eos # (Auto) Seg Neutrophils % Seg Neuts % (Manual) Baso # (Auto) Lymphocytes % (Manual) Monocytes % (Manual) Eosinophils % (Manual) Basophils % (Manual) Seg Neutrophils # Seg Neutrophils # Man Lymphocytes # (Manual) Monocytes # (Manual) Eosinophils # (Manual) Nucleated RBC % Basophils # (Manual) PT INR APTT Heparin Anti-Xa Level ABG pH POC ABG pO2 52.3 L ABG pO2 ABG HCO3 ABG O2 Saturation ABG Base Excess POC ABG pCO2 52.9 H ABG Hemoglobin 10.7 L ABG Oxyhemoglobin 84 L ABG Glucose Oxyhemoglobin Sodium Potassium Chloride 96.6 L Carbon Dioxide BUN 25 H Creatinine 0.7 L Glucose 129 H POC Glucose Lactic Acid Calcium Phosphorus Magnesium AST ALT Lactate Dehydrogenase CK-MB (CK-2) C-Reactive Protein NT-Pro-B Natriuret Pep Total Protein Albumin Arterial Blood Glucose Urine WBC (Auto) 12/22/19 12/22/19 12/22/19 05:18 12:32 12:43 WBC RBC Hgb Hct MCHC RDW MCV MCH Lymph % (Auto) Armstrong % (Auto) Armstrong # Eos # Lymph # (Auto) Armstrong # (Auto) Eos # (Auto) Seg Neutrophils % Seg Neuts % (Manual) Baso # (Auto) Lymphocytes % (Manual) Monocytes % (Manual) Eosinophils % (Manual) Basophils % (Manual) Seg Neutrophils # Seg Neutrophils # Man Lymphocytes # (Manual) Monocytes # (Manual) Eosinophils # (Manual) Nucleated RBC % Basophils # (Manual) PT INR APTT Heparin Anti-Xa Level 0.18 L ABG pH POC ABG pO2 ABG pO2 ABG HCO3 ABG O2 Saturation ABG Base Excess POC ABG pCO2 ABG Hemoglobin ABG Oxyhemoglobin ABG Glucose Oxyhemoglobin Sodium Potassium Chloride Carbon Dioxide BUN Creatinine Glucose POC Glucose 131 H 208 H Lactic Acid Calcium Phosphorus Magnesium AST ALT Lactate Dehydrogenase CK-MB (CK-2) C-Reactive Protein NT-Pro-B Natriuret Pep Total Protein Albumin Arterial Blood Glucose Urine WBC (Auto) 12/22/19 12/22/19 12/23/19 17:44 23:20 03:51 WBC 15.2 H RBC 3.43 L Hgb 9.6 L Hct 30.3 L MCHC RDW 15.9 H MCV MCH Lymph % (Auto) Armstrong % (Auto) Armstrong # Eos # Lymph # (Auto) Armstrong # (Auto) Eos # (Auto) Seg Neutrophils % Seg Neuts % (Manual) Baso # (Auto) Lymphocytes % (Manual) Monocytes % (Manual) Eosinophils % (Manual) Basophils % (Manual) Seg Neutrophils # Seg Neutrophils # Man Lymphocytes # (Manual) Monocytes # (Manual) Eosinophils # (Manual) Nucleated RBC % Basophils # (Manual) PT INR APTT Heparin Anti-Xa Level ABG pH POC ABG pO2 ABG pO2 ABG HCO3 ABG O2 Saturation ABG Base Excess POC ABG pCO2 ABG Hemoglobin ABG Oxyhemoglobin ABG Glucose Oxyhemoglobin Sodium Potassium Chloride Carbon Dioxide BUN Creatinine Glucose POC Glucose 209 H 119 H Lactic Acid Calcium Phosphorus Magnesium AST ALT Lactate Dehydrogenase CK-MB (CK-2) C-Reactive Protein NT-Pro-B Natriuret Pep Total Protein Albumin Arterial Blood Glucose Urine WBC (Auto) 12/23/19 12/23/19 12/23/19 03:51 05:31 12:09 WBC RBC Hgb Hct MCHC RDW MCV MCH Lymph % (Auto) Armstrong % (Auto) Armstrong # Eos # Lymph # (Auto) Armstrong # (Auto) Eos # (Auto) Seg Neutrophils % Seg Neuts % (Manual) Baso # (Auto) Lymphocytes % (Manual) Monocytes % (Manual) Eosinophils % (Manual) Basophils % (Manual) Seg Neutrophils # Seg Neutrophils # Man Lymphocytes # (Manual) Monocytes # (Manual) Eosinophils # (Manual) Nucleated RBC % Basophils # (Manual) PT INR APTT Heparin Anti-Xa Level ABG pH POC ABG pO2 ABG pO2 ABG HCO3 ABG O2 Saturation ABG Base Excess POC ABG pCO2 ABG Hemoglobin ABG Oxyhemoglobin ABG Glucose Oxyhemoglobin Sodium Potassium Chloride 97.2 L Carbon Dioxide 31 H BUN 23 H Creatinine 0.6 L Glucose 153 H POC Glucose 149 H 144 H Lactic Acid Calcium Phosphorus Magnesium AST ALT Lactate Dehydrogenase CK-MB (CK-2) C-Reactive Protein NT-Pro-B Natriuret Pep Total Protein Albumin Arterial Blood Glucose Urine WBC (Auto) 12/23/19 12/23/19 12/23/19 15:30 17:49 23:31 WBC RBC Hgb Hct MCHC RDW MCV MCH Lymph % (Auto) Armstrong % (Auto) Armstrong # Eos # Lymph # (Auto) Armstrong # (Auto) Eos # (Auto) Seg Neutrophils % Seg Neuts % (Manual) Baso # (Auto) Lymphocytes % (Manual) Monocytes % (Manual) Eosinophils % (Manual) Basophils % (Manual) Seg Neutrophils # Seg Neutrophils # Man Lymphocytes # (Manual) Monocytes # (Manual) Eosinophils # (Manual) Nucleated RBC % Basophils # (Manual) PT INR APTT Heparin Anti-Xa Level 0.21 L ABG pH POC ABG pO2 ABG pO2 ABG HCO3 ABG O2 Saturation ABG Base Excess POC ABG pCO2 ABG Hemoglobin ABG Oxyhemoglobin ABG Glucose Oxyhemoglobin Sodium Potassium Chloride Carbon Dioxide BUN Creatinine Glucose POC Glucose 192 H 151 H Lactic Acid Calcium Phosphorus Magnesium AST ALT Lactate Dehydrogenase CK-MB (CK-2) C-Reactive Protein NT-Pro-B Natriuret Pep Total Protein Albumin Arterial Blood Glucose Urine WBC (Auto) 12/24/19 12/24/19 12/24/19 05:34 12:13 16:50 WBC RBC Hgb Hct MCHC RDW MCV MCH Lymph % (Auto) Armstrong % (Auto) Armstrong # Eos # Lymph # (Auto) Armstrong # (Auto) Eos # (Auto) Seg Neutrophils % Seg Neuts % (Manual) Baso # (Auto) Lymphocytes % (Manual) Monocytes % (Manual) Eosinophils % (Manual) Basophils % (Manual) Seg Neutrophils # Seg Neutrophils # Man Lymphocytes # (Manual) Monocytes # (Manual) Eosinophils # (Manual) Nucleated RBC % Basophils # (Manual) PT INR APTT Heparin Anti-Xa Level 0.16 L ABG pH POC ABG pO2 ABG pO2 ABG HCO3 ABG O2 Saturation ABG Base Excess POC ABG pCO2 ABG Hemoglobin ABG Oxyhemoglobin ABG Glucose Oxyhemoglobin Sodium Potassium Chloride Carbon Dioxide BUN Creatinine Glucose POC Glucose 145 H 124 H Lactic Acid Calcium Phosphorus Magnesium AST ALT Lactate Dehydrogenase CK-MB (CK-2) C-Reactive Protein NT-Pro-B Natriuret Pep Total Protein Albumin Arterial Blood Glucose Urine WBC (Auto) 12/24/19 12/25/19 12/25/19 17:53 00:14 04:18 WBC 12.9 H RBC 3.30 L Hgb 9.1 L Hct 28.8 L MCHC RDW 16.4 H MCV MCH Lymph % (Auto) Armstrong % (Auto) 7.8 H Armstrong # Eos # Lymph # (Auto) Armstrong # (Auto) 1.0 H Eos # (Auto) Seg Neutrophils % 75.5 H Seg Neuts % (Manual) Baso # (Auto) Lymphocytes % (Manual) Monocytes % (Manual) Eosinophils % (Manual) Basophils % (Manual) Seg Neutrophils # 9.7 H Seg Neutrophils # Man Lymphocytes # (Manual) Monocytes # (Manual) Eosinophils # (Manual) Nucleated RBC % Basophils # (Manual) PT INR APTT Heparin Anti-Xa Level ABG pH POC ABG pO2 ABG pO2 ABG HCO3 ABG O2 Saturation ABG Base Excess POC ABG pCO2 ABG Hemoglobin ABG Oxyhemoglobin ABG Glucose Oxyhemoglobin Sodium Potassium Chloride Carbon Dioxide BUN Creatinine Glucose POC Glucose 164 H 148 H Lactic Acid Calcium Phosphorus Magnesium AST ALT Lactate Dehydrogenase CK-MB (CK-2) C-Reactive Protein NT-Pro-B Natriuret Pep Total Protein Albumin Arterial Blood Glucose Urine WBC (Auto) 12/25/19 12/25/19 12/25/19 04:18 05:38 11:44 WBC RBC Hgb Hct MCHC RDW MCV MCH Lymph % (Auto) Armstrong % (Auto) Armstrong # Eos # Lymph # (Auto) Armstrong # (Auto) Eos # (Auto) Seg Neutrophils % Seg Neuts % (Manual) Baso # (Auto) Lymphocytes % (Manual) Monocytes % (Manual) Eosinophils % (Manual) Basophils % (Manual) Seg Neutrophils # Seg Neutrophils # Man Lymphocytes # (Manual) Monocytes # (Manual) Eosinophils # (Manual) Nucleated RBC % Basophils # (Manual) PT INR APTT Heparin Anti-Xa Level ABG pH POC ABG pO2 ABG pO2 ABG HCO3 ABG O2 Saturation ABG Base Excess POC ABG pCO2 ABG Hemoglobin ABG Oxyhemoglobin ABG Glucose Oxyhemoglobin Sodium Potassium Chloride Carbon Dioxide 33 H BUN 27 H Creatinine 0.6 L Glucose 132 H POC Glucose 152 H 166 H Lactic Acid Calcium Phosphorus Magnesium AST ALT Lactate Dehydrogenase CK-MB (CK-2) C-Reactive Protein NT-Pro-B Natriuret Pep Total Protein Albumin Arterial Blood Glucose Urine WBC (Auto) 12/25/19 12/26/1912/25/20 18:29 00:17 00:18 WBC RBC Hgb Hct MCHC RDW MCV MCH Lymph % (Auto) Armstrong % (Auto) Armstrong # Eos # Lymph # (Auto) Armstrong # (Auto) Eos # (Auto) Seg Neutrophils % Seg Neuts % (Manual) Baso # (Auto) Lymphocytes % (Manual) Monocytes % (Manual) Eosinophils % (Manual) Basophils % (Manual) Seg Neutrophils # Seg Neutrophils # Man Lymphocytes # (Manual) Monocytes # (Manual) Eosinophils # (Manual) Nucleated RBC % Basophils # (Manual) PT INR APTT Heparin Anti-Xa Level ABG pH POC ABG pO2 ABG pO2 ABG HCO3 ABG O2 Saturation ABG Base Excess POC ABG pCO2 ABG Hemoglobin ABG Oxyhemoglobin ABG Glucose Oxyhemoglobin Sodium Potassium Chloride 97.8 L Carbon Dioxide BUN 25 H Creatinine 0.6 L Glucose 140 H POC Glucose 194 H 151 H Lactic Acid Calcium Phosphorus Magnesium AST ALT Lactate Dehydrogenase CK-MB (CK-2) C-Reactive Protein NT-Pro-B Natriuret Pep Total Protein Albumin Arterial Blood Glucose Urine WBC (Auto) 12/26/19 12/26/19 12/26/19 05:36 11:41 17:50 WBC RBC Hgb Hct MCHC RDW MCV MCH Lymph % (Auto) Armstrong % (Auto) Armstrong # Eos # Lymph # (Auto) Armstrong # (Auto) Eos # (Auto) Seg Neutrophils % Seg Neuts % (Manual) Baso # (Auto) Lymphocytes % (Manual) Monocytes % (Manual) Eosinophils % (Manual) Basophils % (Manual) Seg Neutrophils # Seg Neutrophils # Man Lymphocytes # (Manual) Monocytes # (Manual) Eosinophils # (Manual) Nucleated RBC % Basophils # (Manual) PT INR APTT Heparin Anti-Xa Level ABG pH POC ABG pO2 ABG pO2 ABG HCO3 ABG O2 Saturation ABG Base Excess POC ABG pCO2 ABG Hemoglobin ABG Oxyhemoglobin ABG Glucose Oxyhemoglobin Sodium Potassium Chloride Carbon Dioxide BUN Creatinine Glucose POC Glucose 156 H 148 H 139 H Lactic Acid Calcium Phosphorus Magnesium AST ALT Lactate Dehydrogenase CK-MB (CK-2) C-Reactive Protein NT-Pro-B Natriuret Pep Total Protein Albumin Arterial Blood Glucose Urine WBC (Auto) 12/26/19 12/27/19 12/27/19 23:19 05:34 12:02 WBC RBC Hgb Hct MCHC RDW MCV MCH Lymph % (Auto) Armstrong % (Auto) Armstrong # Eos # Lymph # (Auto) Armstrong # (Auto) Eos # (Auto) Seg Neutrophils % Seg Neuts % (Manual) Baso # (Auto) Lymphocytes % (Manual) Monocytes % (Manual) Eosinophils % (Manual) Basophils % (Manual) Seg Neutrophils # Seg Neutrophils # Man Lymphocytes # (Manual) Monocytes # (Manual) Eosinophils # (Manual) Nucleated RBC % Basophils # (Manual) PT INR APTT Heparin Anti-Xa Level ABG pH POC ABG pO2 ABG pO2 ABG HCO3 ABG O2 Saturation ABG Base Excess POC ABG pCO2 ABG Hemoglobin ABG Oxyhemoglobin ABG Glucose Oxyhemoglobin Sodium Potassium Chloride Carbon Dioxide BUN Creatinine Glucose POC Glucose 161 H 145 H 157 H Lactic Acid Calcium Phosphorus Magnesium AST ALT Lactate Dehydrogenase CK-MB (CK-2) C-Reactive Protein NT-Pro-B Natriuret Pep Total Protein Albumin Arterial Blood Glucose Urine WBC (Auto) 12/27/19 12/27/19 12/27/19 17:35 20:11 23:00 WBC RBC Hgb Hct MCHC RDW MCV MCH Lymph % (Auto) Armstrong % (Auto) Armstrong # Eos # Lymph # (Auto) Armstrong # (Auto) Eos # (Auto) Seg Neutrophils % Seg Neuts % (Manual) Baso # (Auto) Lymphocytes % (Manual) Monocytes % (Manual) Eosinophils % (Manual) Basophils % (Manual) Seg Neutrophils # Seg Neutrophils # Man Lymphocytes # (Manual) Monocytes # (Manual) Eosinophils # (Manual) Nucleated RBC % Basophils # (Manual) PT INR APTT Heparin Anti-Xa Level 0.19 L ABG pH POC ABG pO2 ABG pO2 ABG HCO3 ABG O2 Saturation ABG Base Excess POC ABG pCO2 ABG Hemoglobin ABG Oxyhemoglobin ABG Glucose Oxyhemoglobin Sodium Potassium Chloride Carbon Dioxide BUN Creatinine Glucose POC Glucose 158 H 155 H Lactic Acid Calcium Phosphorus Magnesium AST ALT Lactate Dehydrogenase CK-MB (CK-2) C-Reactive Protein NT-Pro-B Natriuret Pep Total Protein Albumin Arterial Blood Glucose Urine WBC (Auto) 12/27/19 12/28/19 12/28/19 23:45 02:41 02:41 WBC 13.0 H RBC 3.48 L Hgb 9.5 L Hct 30.6 L MCHC 31 L RDW 16.6 H MCV MCH 27 L Lymph % (Auto) 13.0 L Armstrong % (Auto) 8.0 H Armstrong # Eos # Lymph # (Auto) Armstrong # (Auto) 1.0 H Eos # (Auto) Seg Neutrophils % 76.3 H Seg Neuts % (Manual) Baso # (Auto) Lymphocytes % (Manual) Monocytes % (Manual) Eosinophils % (Manual) Basophils % (Manual) Seg Neutrophils # 9.9 H Seg Neutrophils # Man Lymphocytes # (Manual) Monocytes # (Manual) Eosinophils # (Manual) Nucleated RBC % Basophils # (Manual) PT INR APTT Heparin Anti-Xa Level ABG pH POC ABG pO2 ABG pO2 ABG HCO3 ABG O2 Saturation ABG Base Excess POC ABG pCO2 ABG Hemoglobin ABG Oxyhemoglobin ABG Glucose Oxyhemoglobin Sodium Potassium Chloride Carbon Dioxide BUN 22 H Creatinine 0.6 L Glucose 101 H POC Glucose 130 H Lactic Acid Calcium Phosphorus Magnesium AST ALT Lactate Dehydrogenase CK-MB (CK-2) C-Reactive Protein NT-Pro-B Natriuret Pep Total Protein Albumin Arterial Blood Glucose Urine WBC (Auto) 12/28/19 12/28/19 12/28/19 06:00 12:34 18:13 WBC RBC Hgb Hct MCHC RDW MCV MCH Lymph % (Auto) Armstrong % (Auto) Armstrong # Eos # Lymph # (Auto) Armstrong # (Auto) Eos # (Auto) Seg Neutrophils % Seg Neuts % (Manual) Baso # (Auto) Lymphocytes % (Manual) Monocytes % (Manual) Eosinophils % (Manual) Basophils % (Manual) Seg Neutrophils # Seg Neutrophils # Man Lymphocytes # (Manual) Monocytes # (Manual) Eosinophils # (Manual) Nucleated RBC % Basophils # (Manual) PT INR APTT Heparin Anti-Xa Level ABG pH POC ABG pO2 ABG pO2 ABG HCO3 ABG O2 Saturation ABG Base Excess POC ABG pCO2 ABG Hemoglobin ABG Oxyhemoglobin ABG Glucose Oxyhemoglobin Sodium Potassium Chloride Carbon Dioxide BUN Creatinine Glucose POC Glucose 150 H 161 H 128 H Lactic Acid Calcium Phosphorus Magnesium AST ALT Lactate Dehydrogenase CK-MB (CK-2) C-Reactive Protein NT-Pro-B Natriuret Pep Total Protein Albumin Arterial Blood Glucose Urine WBC (Auto) 12/28/19 12/29/19 12/29/19 23:36 05:21 11:40 WBC RBC Hgb Hct MCHC RDW MCV MCH Lymph % (Auto) Armstrong % (Auto) Armstrong # Eos # Lymph # (Auto) Armstrong # (Auto) Eos # (Auto) Seg Neutrophils % Seg Neuts % (Manual) Baso # (Auto) Lymphocytes % (Manual) Monocytes % (Manual) Eosinophils % (Manual) Basophils % (Manual) Seg Neutrophils # Seg Neutrophils # Man Lymphocytes # (Manual) Monocytes # (Manual) Eosinophils # (Manual) Nucleated RBC % Basophils # (Manual) PT INR APTT Heparin Anti-Xa Level ABG pH POC ABG pO2 ABG pO2 ABG HCO3 ABG O2 Saturation ABG Base Excess POC ABG pCO2 ABG Hemoglobin ABG Oxyhemoglobin ABG Glucose Oxyhemoglobin Sodium Potassium Chloride Carbon Dioxide BUN Creatinine Glucose POC Glucose 137 H 136 H 166 H Lactic Acid Calcium Phosphorus Magnesium AST ALT Lactate Dehydrogenase CK-MB (CK-2) C-Reactive Protein NT-Pro-B Natriuret Pep Total Protein Albumin Arterial Blood Glucose Urine WBC (Auto) 12/29/19 12/29/19 12/29/19 17:23 19:21 23:38 WBC RBC Hgb Hct MCHC RDW MCV MCH Lymph % (Auto) Armstrong % (Auto) Armstrong # Eos # Lymph # (Auto) Armstrong # (Auto) Eos # (Auto) Seg Neutrophils % Seg Neuts % (Manual) Baso # (Auto) Lymphocytes % (Manual) Monocytes % (Manual) Eosinophils % (Manual) Basophils % (Manual) Seg Neutrophils # Seg Neutrophils # Man Lymphocytes # (Manual) Monocytes # (Manual) Eosinophils # (Manual) Nucleated RBC % Basophils # (Manual) PT INR APTT Heparin Anti-Xa Level 0.20 L ABG pH POC ABG pO2 ABG pO2 ABG HCO3 ABG O2 Saturation ABG Base Excess POC ABG pCO2 ABG Hemoglobin ABG Oxyhemoglobin ABG Glucose Oxyhemoglobin Sodium Potassium Chloride Carbon Dioxide BUN Creatinine Glucose POC Glucose 144 H 141 H Lactic Acid Calcium Phosphorus Magnesium AST ALT Lactate Dehydrogenase CK-MB (CK-2) C-Reactive Protein NT-Pro-B Natriuret Pep Total Protein Albumin Arterial Blood Glucose Urine WBC (Auto) 12/30/19 12/30/19 12/30/19 03:58 03:58 04:59 WBC RBC 3.54 L Hgb 9.8 L Hct 30.7 L MCHC RDW 16.8 H MCV MCH Lymph % (Auto) Armstrong % (Auto) Armstrong # Eos # Lymph # (Auto) Armstrong # (Auto) Eos # (Auto) Seg Neutrophils % Seg Neuts % (Manual) Baso # (Auto) Lymphocytes % (Manual) Monocytes % (Manual) Eosinophils % (Manual) Basophils % (Manual) Seg Neutrophils # Seg Neutrophils # Man Lymphocytes # (Manual) Monocytes # (Manual) Eosinophils # (Manual) Nucleated RBC % Basophils # (Manual) PT INR APTT Heparin Anti-Xa Level ABG pH POC ABG pO2 ABG pO2 ABG HCO3 29.8 H ABG O2 Saturation ABG Base Excess 4.8 H POC ABG pCO2 ABG Hemoglobin 11.2 L ABG Oxyhemoglobin ABG Glucose Oxyhemoglobin 93.8 L Sodium Potassium Chloride 97.8 L Carbon Dioxide BUN 26 H Creatinine Glucose 168 H POC Glucose Lactic Acid Calcium Phosphorus Magnesium AST ALT Lactate Dehydrogenase CK-MB (CK-2) C-Reactive Protein NT-Pro-B Natriuret Pep Total Protein Albumin Arterial Blood Glucose Urine WBC (Auto) 12/30/19 12/30/19 12/30/19 05:45 11:34 17:28 WBC RBC Hgb Hct MCHC RDW MCV MCH Lymph % (Auto) Armstrong % (Auto) Armstrong # Eos # Lymph # (Auto) Armstrong # (Auto) Eos # (Auto) Seg Neutrophils % Seg Neuts % (Manual) Baso # (Auto) Lymphocytes % (Manual) Monocytes % (Manual) Eosinophils % (Manual) Basophils % (Manual) Seg Neutrophils # Seg Neutrophils # Man Lymphocytes # (Manual) Monocytes # (Manual) Eosinophils # (Manual) Nucleated RBC % Basophils # (Manual) PT INR APTT Heparin Anti-Xa Level ABG pH POC ABG pO2 ABG pO2 ABG HCO3 ABG O2 Saturation ABG Base Excess POC ABG pCO2 ABG Hemoglobin ABG Oxyhemoglobin ABG Glucose Oxyhemoglobin Sodium Potassium Chloride Carbon Dioxide BUN Creatinine Glucose POC Glucose 163 H 180 H 150 H Lactic Acid Calcium Phosphorus Magnesium AST ALT Lactate Dehydrogenase CK-MB (CK-2) C-Reactive Protein NT-Pro-B Natriuret Pep Total Protein Albumin Arterial Blood Glucose Urine WBC (Auto) 12/30/19 12/31/19 12/31/19 23:43 04:55 05:07 WBC RBC Hgb Hct MCHC RDW MCV MCH Lymph % (Auto) Armstrong % (Auto) Armstrong # Eos # Lymph # (Auto) Armstrong # (Auto) Eos # (Auto) Seg Neutrophils % Seg Neuts % (Manual) Baso # (Auto) Lymphocytes % (Manual) Monocytes % (Manual) Eosinophils % (Manual) Basophils % (Manual) Seg Neutrophils # Seg Neutrophils # Man Lymphocytes # (Manual) Monocytes # (Manual) Eosinophils # (Manual) Nucleated RBC % Basophils # (Manual) PT INR APTT Heparin Anti-Xa Level ABG pH POC ABG pO2 ABG pO2 ABG HCO3 ABG O2 Saturation ABG Base Excess POC ABG pCO2 ABG Hemoglobin ABG Oxyhemoglobin ABG Glucose Oxyhemoglobin Sodium Potassium 5.6 H D Chloride Carbon Dioxide BUN 33 H Creatinine Glucose 131 H POC Glucose 142 H 134 H Lactic Acid Calcium Phosphorus Magnesium AST ALT Lactate Dehydrogenase CK-MB (CK-2) C-Reactive Protein NT-Pro-B Natriuret Pep Total Protein Albumin Arterial Blood Glucose Urine WBC (Auto) 12/31/19 12/31/19 12/31/19 11:30 17:19 17:36 WBC RBC Hgb Hct MCHC RDW MCV MCH Lymph % (Auto) Armstrong % (Auto) Armstrong # Eos # Lymph # (Auto) Armstrong # (Auto) Eos # (Auto) Seg Neutrophils % Seg Neuts % (Manual) Baso # (Auto) Lymphocytes % (Manual) Monocytes % (Manual) Eosinophils % (Manual) Basophils % (Manual) Seg Neutrophils # Seg Neutrophils # Man Lymphocytes # (Manual) Monocytes # (Manual) Eosinophils # (Manual) Nucleated RBC % Basophils # (Manual) PT INR APTT Heparin Anti-Xa Level ABG pH POC ABG pO2 ABG pO2 ABG HCO3 ABG O2 Saturation ABG Base Excess POC ABG pCO2 ABG Hemoglobin ABG Oxyhemoglobin ABG Glucose Oxyhemoglobin Sodium Potassium Chloride Carbon Dioxide BUN 35 H Creatinine Glucose 156 H POC Glucose 158 H 181 H Lactic Acid Calcium Phosphorus Magnesium AST ALT Lactate Dehydrogenase CK-MB (CK-2) C-Reactive Protein NT-Pro-B Natriuret Pep Total Protein Albumin Arterial Blood Glucose Urine WBC (Auto) 12/31/19 12/31/19 12/31/19 18:16 19:41 21:53 WBC RBC Hgb Hct MCHC RDW MCV MCH Lymph % (Auto) Armstrong % (Auto) Armstrong # Eos # Lymph # (Auto) Armstrong # (Auto) Eos # (Auto) Seg Neutrophils % Seg Neuts % (Manual) Baso # (Auto) Lymphocytes % (Manual) Monocytes % (Manual) Eosinophils % (Manual) Basophils % (Manual) Seg Neutrophils # Seg Neutrophils # Man Lymphocytes # (Manual) Monocytes # (Manual) Eosinophils # (Manual) Nucleated RBC % Basophils # (Manual) PT INR APTT Heparin Anti-Xa Level 0.20 L ABG pH POC ABG pO2 ABG pO2 ABG HCO3 ABG O2 Saturation ABG Base Excess POC ABG pCO2 ABG Hemoglobin ABG Oxyhemoglobin ABG Glucose Oxyhemoglobin Sodium Potassium Chloride Carbon Dioxide BUN 34 H Creatinine Glucose 169 H POC Glucose 141 H Lactic Acid Calcium Phosphorus Magnesium AST ALT Lactate Dehydrogenase CK-MB (CK-2) C-Reactive Protein NT-Pro-B Natriuret Pep Total Protein Albumin Arterial Blood Glucose Urine WBC (Auto) 12/31/19 01/01/20 01/01/20 23:51 05:17 10:40 WBC RBC Hgb Hct MCHC RDW MCV MCH Lymph % (Auto) Armstrong % (Auto) Armstrong # Eos # Lymph # (Auto) Armstrong # (Auto) Eos # (Auto) Seg Neutrophils % Seg Neuts % (Manual) Baso # (Auto) Lymphocytes % (Manual) Monocytes % (Manual) Eosinophils % (Manual) Basophils % (Manual) Seg Neutrophils # Seg Neutrophils # Man Lymphocytes # (Manual) Monocytes # (Manual) Eosinophils # (Manual) Nucleated RBC % Basophils # (Manual) PT INR APTT Heparin Anti-Xa Level ABG pH POC ABG pO2 ABG pO2 ABG HCO3 ABG O2 Saturation ABG Base Excess POC ABG pCO2 ABG Hemoglobin ABG Oxyhemoglobin ABG Glucose Oxyhemoglobin Sodium Potassium Chloride Carbon Dioxide BUN 31 H Creatinine 0.7 L Glucose 137 H POC Glucose 131 H 155 H Lactic Acid Calcium Phosphorus Magnesium AST 73 H ALT 97 H Lactate Dehydrogenase CK-MB (CK-2) C-Reactive Protein NT-Pro-B Natriuret Pep 3866 H Total Protein Albumin 2.8 L Arterial Blood Glucose Urine WBC (Auto) 01/01/20 01/01/20 01/01/20 12:26 15:33 17:53 WBC 14.3 H RBC 3.35 L Hgb 9.1 L Hct 28.8 L MCHC RDW 17.0 H MCV MCH 27 L Lymph % (Auto) 7.0 L Armstrong % (Auto) 7.6 H Armstrong # Eos # Lymph # (Auto) 1.0 L Armstrong # (Auto) 1.1 H Eos # (Auto) Seg Neutrophils % 83.3 H Seg Neuts % (Manual) Baso # (Auto) Lymphocytes % (Manual) Monocytes % (Manual) Eosinophils % (Manual) Basophils % (Manual) Seg Neutrophils # 12.0 H Seg Neutrophils # Man Lymphocytes # (Manual) Monocytes # (Manual) Eosinophils # (Manual) Nucleated RBC % Basophils # (Manual) PT INR APTT Heparin Anti-Xa Level ABG pH POC ABG pO2 ABG pO2 ABG HCO3 ABG O2 Saturation ABG Base Excess POC ABG pCO2 ABG Hemoglobin ABG Oxyhemoglobin ABG Glucose Oxyhemoglobin Sodium Potassium Chloride Carbon Dioxide BUN Creatinine Glucose POC Glucose 128 H 128 H Lactic Acid Calcium Phosphorus Magnesium AST ALT Lactate Dehydrogenase CK-MB (CK-2) C-Reactive Protein NT-Pro-B Natriuret Pep Total Protein Albumin Arterial Blood Glucose Urine WBC (Auto) 01/01/20 01/02/20 01/02/20 23:04 05:39 07:00 WBC RBC Hgb Hct MCHC RDW MCV MCH Lymph % (Auto) Armstrong % (Auto) Armstrong # Eos # Lymph # (Auto) Armstrong # (Auto) Eos # (Auto) Seg Neutrophils % Seg Neuts % (Manual) Baso # (Auto) Lymphocytes % (Manual) Monocytes % (Manual) Eosinophils % (Manual) Basophils % (Manual) Seg Neutrophils # Seg Neutrophils # Man Lymphocytes # (Manual) Monocytes # (Manual) Eosinophils # (Manual) Nucleated RBC % Basophils # (Manual) PT INR APTT Heparin Anti-Xa Level 0.13 L ABG pH POC ABG pO2 ABG pO2 ABG HCO3 ABG O2 Saturation ABG Base Excess POC ABG pCO2 ABG Hemoglobin ABG Oxyhemoglobin ABG Glucose Oxyhemoglobin Sodium Potassium Chloride Carbon Dioxide BUN Creatinine Glucose POC Glucose 120 H 169 H Lactic Acid Calcium Phosphorus Magnesium AST ALT Lactate Dehydrogenase CK-MB (CK-2) C-Reactive Protein NT-Pro-B Natriuret Pep Total Protein Albumin Arterial Blood Glucose Urine WBC (Auto) 01/02/20 01/02/20 01/02/20 12:15 14:06 17:58 WBC RBC Hgb Hct MCHC RDW MCV MCH Lymph % (Auto) Armstrong % (Auto) Armstrong # Eos # Lymph # (Auto) Armstrong # (Auto) Eos # (Auto) Seg Neutrophils % Seg Neuts % (Manual) Baso # (Auto) Lymphocytes % (Manual) Monocytes % (Manual) Eosinophils % (Manual) Basophils % (Manual) Seg Neutrophils # Seg Neutrophils # Man Lymphocytes # (Manual) Monocytes # (Manual) Eosinophils # (Manual) Nucleated RBC % Basophils # (Manual) PT INR APTT Heparin Anti-Xa Level < 0.10 L ABG pH POC ABG pO2 ABG pO2 ABG HCO3 ABG O2 Saturation ABG Base Excess POC ABG pCO2 ABG Hemoglobin ABG Oxyhemoglobin ABG Glucose Oxyhemoglobin Sodium Potassium Chloride Carbon Dioxide BUN Creatinine Glucose POC Glucose 190 H 198 H Lactic Acid Calcium Phosphorus Magnesium AST ALT Lactate Dehydrogenase CK-MB (CK-2) C-Reactive Protein NT-Pro-B Natriuret Pep Total Protein Albumin Arterial Blood Glucose Urine WBC (Auto) 01/02/20 01/02/20 01/03/20 21:43 23:33 05:42 WBC RBC Hgb Hct MCHC RDW MCV MCH Lymph % (Auto) Armstrong % (Auto) Armstrong # Eos # Lymph # (Auto) Armstrong # (Auto) Eos # (Auto) Seg Neutrophils % Seg Neuts % (Manual) Baso # (Auto) Lymphocytes % (Manual) Monocytes % (Manual) Eosinophils % (Manual) Basophils % (Manual) Seg Neutrophils # Seg Neutrophils # Man Lymphocytes # (Manual) Monocytes # (Manual) Eosinophils # (Manual) Nucleated RBC % Basophils # (Manual) PT INR APTT Heparin Anti-Xa Level 0.10 L ABG pH POC ABG pO2 ABG pO2 ABG HCO3 ABG O2 Saturation ABG Base Excess POC ABG pCO2 ABG Hemoglobin ABG Oxyhemoglobin ABG Glucose Oxyhemoglobin Sodium Potassium Chloride Carbon Dioxide BUN Creatinine Glucose POC Glucose 180 H 163 H Lactic Acid Calcium Phosphorus Magnesium AST ALT Lactate Dehydrogenase CK-MB (CK-2) C-Reactive Protein NT-Pro-B Natriuret Pep Total Protein Albumin Arterial Blood Glucose Urine WBC (Auto) 01/03/20 01/03/20 01/03/20 06:50 07:25 07:45 WBC 12.1 H RBC 3.35 L Hgb 9.0 L Hct 28.9 L MCHC 31 L RDW 16.6 H MCV MCH 27 L Lymph % (Auto) 13.0 L Armstrong % (Auto) 8.6 H Armstrong # Eos # Lymph # (Auto) Armstrong # (Auto) 1.0 H Eos # (Auto) Seg Neutrophils % 75.9 H Seg Neuts % (Manual) Baso # (Auto) Lymphocytes % (Manual) Monocytes % (Manual) Eosinophils % (Manual) Basophils % (Manual) Seg Neutrophils # 9.2 H Seg Neutrophils # Man Lymphocytes # (Manual) Monocytes # (Manual) Eosinophils # (Manual) Nucleated RBC % Basophils # (Manual) PT INR APTT Heparin Anti-Xa Level 0.29 L ABG pH POC ABG pO2 ABG pO2 ABG HCO3 ABG O2 Saturation ABG Base Excess POC ABG pCO2 ABG Hemoglobin ABG Oxyhemoglobin ABG Glucose Oxyhemoglobin Sodium Potassium 3.3 L D Chloride Carbon Dioxide 35 H D BUN 23 H Creatinine 0.6 L Glucose 149 H POC Glucose Lactic Acid Calcium Phosphorus Magnesium AST ALT 88 H Lactate Dehydrogenase CK-MB (CK-2) C-Reactive Protein NT-Pro-B Natriuret Pep Total Protein 6.2 L Albumin 2.9 L Arterial Blood Glucose Urine WBC (Auto) 01/03/20 01/03/20 01/03/20 12:05 17:42 18:30 WBC RBC Hgb Hct MCHC RDW MCV MCH Lymph % (Auto) Armstrong % (Auto) Armstrong # Eos # Lymph # (Auto) Armstrong # (Auto) Eos # (Auto) Seg Neutrophils % Seg Neuts % (Manual) Baso # (Auto) Lymphocytes % (Manual) Monocytes % (Manual) Eosinophils % (Manual) Basophils % (Manual) Seg Neutrophils # Seg Neutrophils # Man Lymphocytes # (Manual) Monocytes # (Manual) Eosinophils # (Manual) Nucleated RBC % Basophils # (Manual) PT INR APTT Heparin Anti-Xa Level ABG pH POC ABG pO2 ABG pO2 70.7 L ABG HCO3 36.1 H ABG O2 Saturation 94.4 L ABG Base Excess 10.0 H POC ABG pCO2 ABG Hemoglobin 9.7 L ABG Oxyhemoglobin ABG Glucose Oxyhemoglobin 91.8 L Sodium Potassium Chloride Carbon Dioxide BUN Creatinine Glucose POC Glucose 128 H 132 H Lactic Acid Calcium Phosphorus Magnesium AST ALT Lactate Dehydrogenase CK-MB (CK-2) C-Reactive Protein NT-Pro-B Natriuret Pep Total Protein Albumin Arterial Blood Glucose Urine WBC (Auto) 01/04/20 01/04/20 01/04/20 00:10 04:26 05:23 WBC RBC Hgb Hct MCHC RDW MCV MCH Lymph % (Auto) Armstrong % (Auto) Armstrong # Eos # Lymph # (Auto) Armstrong # (Auto) Eos # (Auto) Seg Neutrophils % Seg Neuts % (Manual) Baso # (Auto) Lymphocytes % (Manual) Monocytes % (Manual) Eosinophils % (Manual) Basophils % (Manual) Seg Neutrophils # Seg Neutrophils # Man Lymphocytes # (Manual) Monocytes # (Manual) Eosinophils # (Manual) Nucleated RBC % Basophils # (Manual) PT INR APTT Heparin Anti-Xa Level 0.16 L ABG pH POC ABG pO2 ABG pO2 ABG HCO3 ABG O2 Saturation ABG Base Excess POC ABG pCO2 ABG Hemoglobin ABG Oxyhemoglobin ABG Glucose Oxyhemoglobin Sodium Potassium Chloride Carbon Dioxide BUN Creatinine Glucose POC Glucose 121 H 119 H Lactic Acid Calcium Phosphorus Magnesium AST ALT Lactate Dehydrogenase CK-MB (CK-2) C-Reactive Protein NT-Pro-B Natriuret Pep Total Protein Albumin Arterial Blood Glucose Urine WBC (Auto) 01/04/20 01/04/20 01/04/20 09:50 09:50 12:18 WBC 15.4 H RBC 3.30 L Hgb 8.7 L Hct 28.2 L MCHC 31 L RDW 17.0 H MCV MCH 26 L Lymph % (Auto) Armstrong % (Auto) 7.6 H Armstrong # Eos # Lymph # (Auto) Armstrong # (Auto) 1.2 H Eos # (Auto) Seg Neutrophils % 75.4 H Seg Neuts % (Manual) Baso # (Auto) Lymphocytes % (Manual) Monocytes % (Manual) Eosinophils % (Manual) Basophils % (Manual) Seg Neutrophils # 11.6 H Seg Neutrophils # Man Lymphocytes # (Manual) Monocytes # (Manual) Eosinophils # (Manual) Nucleated RBC % Basophils # (Manual) PT INR APTT Heparin Anti-Xa Level ABG pH POC ABG pO2 ABG pO2 ABG HCO3 ABG O2 Saturation ABG Base Excess POC ABG pCO2 ABG Hemoglobin ABG Oxyhemoglobin ABG Glucose Oxyhemoglobin Sodium 148 H Potassium 3.5 L Chloride Carbon Dioxide 32 H BUN Creatinine 0.6 L Glucose 114 H POC Glucose 111 H Lactic Acid Calcium Phosphorus Magnesium AST ALT 59 H Lactate Dehydrogenase CK-MB (CK-2) C-Reactive Protein NT-Pro-B Natriuret Pep Total Protein Albumin 2.6 L Arterial Blood Glucose Urine WBC (Auto) 01/05/20 01/05/20 01/05/20 04:05 04:05 05:19 WBC 11.7 H RBC 3.50 L Hgb 9.3 L Hct 29.9 L MCHC 31 L RDW 16.6 H MCV MCH 27 L Lymph % (Auto) 13.1 L Armstrong % (Auto) 9.7 H Armstrong # Eos # Lymph # (Auto) Armstrong # (Auto) 1.1 H Eos # (Auto) Seg Neutrophils % 74.0 H Seg Neuts % (Manual) Baso # (Auto) Lymphocytes % (Manual) Monocytes % (Manual) Eosinophils % (Manual) Basophils % (Manual) Seg Neutrophils # 8.6 H Seg Neutrophils # Man Lymphocytes # (Manual) Monocytes # (Manual) Eosinophils # (Manual) Nucleated RBC % Basophils # (Manual) PT INR APTT Heparin Anti-Xa Level ABG pH POC ABG pO2 ABG pO2 ABG HCO3 ABG O2 Saturation ABG Base Excess POC ABG pCO2 ABG Hemoglobin ABG Oxyhemoglobin ABG Glucose Oxyhemoglobin Sodium 151 H Potassium Chloride Carbon Dioxide 34 H BUN Creatinine 0.7 L Glucose POC Glucose 112 H Lactic Acid Calcium Phosphorus Magnesium AST ALT 59 H Lactate Dehydrogenase CK-MB (CK-2) C-Reactive Protein NT-Pro-B Natriuret Pep Total Protein 5.8 L Albumin 2.6 L Arterial Blood Glucose Urine WBC (Auto) 01/05/20 01/06/20 01/06/20 16:04 00:23 04:44 WBC RBC 3.36 L Hgb 8.9 L Hct 28.7 L MCHC 31 L RDW 16.9 H MCV MCH 26 L Lymph % (Auto) Armstrong % (Auto) 9.4 H Armstrong # Eos # Lymph # (Auto) Armstrong # (Auto) Eos # (Auto) Seg Neutrophils % Seg Neuts % (Manual) Baso # (Auto) Lymphocytes % (Manual) Monocytes % (Manual) Eosinophils % (Manual) Basophils % (Manual) Seg Neutrophils # Seg Neutrophils # Man Lymphocytes # (Manual) Monocytes # (Manual) Eosinophils # (Manual) Nucleated RBC % Basophils # (Manual) PT INR APTT Heparin Anti-Xa Level ABG pH POC ABG pO2 ABG pO2 ABG HCO3 ABG O2 Saturation ABG Base Excess POC ABG pCO2 ABG Hemoglobin ABG Oxyhemoglobin ABG Glucose Oxyhemoglobin Sodium 151 H Potassium 3.2 L Chloride Carbon Dioxide 34 H BUN Creatinine 0.6 L Glucose POC Glucose 107 H Lactic Acid Calcium Phosphorus Magnesium AST ALT Lactate Dehydrogenase CK-MB (CK-2) C-Reactive Protein NT-Pro-B Natriuret Pep Total Protein Albumin Arterial Blood Glucose Urine WBC (Auto) 01/06/20 01/06/20 01/06/20 04:44 05:33 12:04 WBC RBC Hgb Hct MCHC RDW MCV MCH Lymph % (Auto) Armstrong % (Auto) Armstrong # Eos # Lymph # (Auto) Armstrong # (Auto) Eos # (Auto) Seg Neutrophils % Seg Neuts % (Manual) Baso # (Auto) Lymphocytes % (Manual) Monocytes % (Manual) Eosinophils % (Manual) Basophils % (Manual) Seg Neutrophils # Seg Neutrophils # Man Lymphocytes # (Manual) Monocytes # (Manual) Eosinophils # (Manual) Nucleated RBC % Basophils # (Manual) PT INR APTT Heparin Anti-Xa Level ABG pH POC ABG pO2 ABG pO2 ABG HCO3 ABG O2 Saturation ABG Base Excess POC ABG pCO2 ABG Hemoglobin ABG Oxyhemoglobin ABG Glucose Oxyhemoglobin Sodium 151 H Potassium 3.4 L Chloride Carbon Dioxide 33 H BUN Creatinine 0.6 L Glucose 118 H POC Glucose 118 H 123 H Lactic Acid Calcium Phosphorus Magnesium AST ALT Lactate Dehydrogenase CK-MB (CK-2) C-Reactive Protein NT-Pro-B Natriuret Pep Total Protein 6.2 L Albumin 2.6 L Arterial Blood Glucose Urine WBC (Auto) 01/06/20 01/07/20 01/07/20 17:54 00:06 04:10 WBC RBC 3.42 L Hgb 8.9 L Hct 29.0 L MCHC 31 L RDW 17.1 H MCV MCH 26 L Lymph % (Auto) Armstrong % (Auto) 8.4 H Armstrong # Eos # Lymph # (Auto) Armstrong # (Auto) Eos # (Auto) Seg Neutrophils % Seg Neuts % (Manual) Baso # (Auto) Lymphocytes % (Manual) Monocytes % (Manual) Eosinophils % (Manual) Basophils % (Manual) Seg Neutrophils # Seg Neutrophils # Man Lymphocytes # (Manual) Monocytes # (Manual) Eosinophils # (Manual) Nucleated RBC % Basophils # (Manual) PT INR APTT Heparin Anti-Xa Level ABG pH POC ABG pO2 ABG pO2 ABG HCO3 ABG O2 Saturation ABG Base Excess POC ABG pCO2 ABG Hemoglobin ABG Oxyhemoglobin ABG Glucose Oxyhemoglobin Sodium Potassium Chloride Carbon Dioxide BUN Creatinine Glucose POC Glucose 112 H 126 H Lactic Acid Calcium Phosphorus Magnesium AST ALT Lactate Dehydrogenase CK-MB (CK-2) C-Reactive Protein NT-Pro-B Natriuret Pep Total Protein Albumin Arterial Blood Glucose Urine WBC (Auto) 01/07/20 01/07/20 01/07/20 04:10 05:59 12:27 WBC RBC Hgb Hct MCHC RDW MCV MCH Lymph % (Auto) Armstrong % (Auto) Armstrong # Eos # Lymph # (Auto) Armstrong # (Auto) Eos # (Auto) Seg Neutrophils % Seg Neuts % (Manual) Baso # (Auto) Lymphocytes % (Manual) Monocytes % (Manual) Eosinophils % (Manual) Basophils % (Manual) Seg Neutrophils # Seg Neutrophils # Man Lymphocytes # (Manual) Monocytes # (Manual) Eosinophils # (Manual) Nucleated RBC % Basophils # (Manual) PT INR APTT Heparin Anti-Xa Level ABG pH POC ABG pO2 ABG pO2 ABG HCO3 ABG O2 Saturation ABG Base Excess POC ABG pCO2 ABG Hemoglobin ABG Oxyhemoglobin ABG Glucose Oxyhemoglobin Sodium 153 H Potassium 3.5 L Chloride Carbon Dioxide 34 H BUN Creatinine 0.6 L Glucose 121 H POC Glucose 121 H 126 H Lactic Acid Calcium Phosphorus Magnesium AST ALT Lactate Dehydrogenase CK-MB (CK-2) C-Reactive Protein NT-Pro-B Natriuret Pep Total Protein 5.9 L Albumin 2.4 L Arterial Blood Glucose Urine WBC (Auto) 01/07/20 01/08/20 01/08/20 18:12 00:03 05:41 WBC RBC Hgb Hct MCHC RDW MCV MCH Lymph % (Auto) Armstrong % (Auto) Armstrong # Eos # Lymph # (Auto) Armstrong # (Auto) Eos # (Auto) Seg Neutrophils % Seg Neuts % (Manual) Baso # (Auto) Lymphocytes % (Manual) Monocytes % (Manual) Eosinophils % (Manual) Basophils % (Manual) Seg Neutrophils # Seg Neutrophils # Man Lymphocytes # (Manual) Monocytes # (Manual) Eosinophils # (Manual) Nucleated RBC % Basophils # (Manual) PT INR APTT Heparin Anti-Xa Level ABG pH POC ABG pO2 ABG pO2 ABG HCO3 ABG O2 Saturation ABG Base Excess POC ABG pCO2 ABG Hemoglobin ABG Oxyhemoglobin ABG Glucose Oxyhemoglobin Sodium Potassium Chloride Carbon Dioxide BUN Creatinine Glucose POC Glucose 124 H 130 H 138 H Lactic Acid Calcium Phosphorus Magnesium AST ALT Lactate Dehydrogenase CK-MB (CK-2) C-Reactive Protein NT-Pro-B Natriuret Pep Total Protein Albumin Arterial Blood Glucose Urine WBC (Auto) 01/08/20 01/08/20 01/08/20 09:28 11:42 18:21 WBC RBC Hgb Hct MCHC RDW MCV MCH Lymph % (Auto) Armstrong % (Auto) Armstrong # Eos # Lymph # (Auto) Armstrong # (Auto) Eos # (Auto) Seg Neutrophils % Seg Neuts % (Manual) Baso # (Auto) Lymphocytes % (Manual) Monocytes % (Manual) Eosinophils % (Manual) Basophils % (Manual) Seg Neutrophils # Seg Neutrophils # Man Lymphocytes # (Manual) Monocytes # (Manual) Eosinophils # (Manual) Nucleated RBC % Basophils # (Manual) PT INR APTT Heparin Anti-Xa Level ABG pH POC ABG pO2 ABG pO2 ABG HCO3 ABG O2 Saturation ABG Base Excess POC ABG pCO2 ABG Hemoglobin ABG Oxyhemoglobin ABG Glucose Oxyhemoglobin Sodium Potassium Chloride Carbon Dioxide BUN Creatinine Glucose POC Glucose 181 H 150 H 129 H Lactic Acid Calcium Phosphorus Magnesium AST ALT Lactate Dehydrogenase CK-MB (CK-2) C-Reactive Protein NT-Pro-B Natriuret Pep Total Protein Albumin Arterial Blood Glucose Urine WBC (Auto) 01/08/20 01/08/20 01/09/20 19:25 23:55 04:11 WBC RBC 3.43 L Hgb 8.9 L Hct 28.7 L MCHC 31 L RDW 17.6 H MCV MCH 26 L Lymph % (Auto) Armstrong % (Auto) 8.6 H Armstrong # Eos # Lymph # (Auto) Armstrong # (Auto) Eos # (Auto) Seg Neutrophils % Seg Neuts % (Manual) Baso # (Auto) Lymphocytes % (Manual) Monocytes % (Manual) Eosinophils % (Manual) Basophils % (Manual) Seg Neutrophils # Seg Neutrophils # Man Lymphocytes # (Manual) Monocytes # (Manual) Eosinophils # (Manual) Nucleated RBC % Basophils # (Manual) PT INR APTT Heparin Anti-Xa Level ABG pH POC ABG pO2 ABG pO2 ABG HCO3 ABG O2 Saturation ABG Base Excess POC ABG pCO2 ABG Hemoglobin ABG Oxyhemoglobin ABG Glucose Oxyhemoglobin Sodium Potassium Chloride Carbon Dioxide BUN Creatinine 0.7 L Glucose 117 H POC Glucose 132 H Lactic Acid Calcium Phosphorus Magnesium AST ALT Lactate Dehydrogenase CK-MB (CK-2) C-Reactive Protein NT-Pro-B Natriuret Pep Total Protein Albumin Arterial Blood Glucose Urine WBC (Auto) 01/09/20 01/09/20 01/09/20 04:11 05:38 22:58 WBC RBC Hgb Hct MCHC RDW MCV MCH Lymph % (Auto) Armstrong % (Auto) Armstrong # Eos # Lymph # (Auto) Armstrong # (Auto) Eos # (Auto) Seg Neutrophils % Seg Neuts % (Manual) Baso # (Auto) Lymphocytes % (Manual) Monocytes % (Manual) Eosinophils % (Manual) Basophils % (Manual) Seg Neutrophils # Seg Neutrophils # Man Lymphocytes # (Manual) Monocytes # (Manual) Eosinophils # (Manual) Nucleated RBC % Basophils # (Manual) PT INR APTT Heparin Anti-Xa Level ABG pH POC ABG pO2 ABG pO2 ABG HCO3 ABG O2 Saturation ABG Base Excess POC ABG pCO2 ABG Hemoglobin ABG Oxyhemoglobin ABG Glucose Oxyhemoglobin Sodium 147 H Potassium 3.3 L D Chloride Carbon Dioxide 32 H BUN Creatinine 0.6 L Glucose 106 H POC Glucose 107 H 113 H Lactic Acid Calcium Phosphorus Magnesium AST ALT Lactate Dehydrogenase CK-MB (CK-2) C-Reactive Protein NT-Pro-B Natriuret Pep Total Protein Albumin Arterial Blood Glucose Urine WBC (Auto) 01/10/20 01/10/20 01/10/20 04:05 11:36 17:54 WBC RBC Hgb Hct MCHC RDW MCV MCH Lymph % (Auto) Armstrong % (Auto) Armstrong # Eos # Lymph # (Auto) Armstrong # (Auto) Eos # (Auto) Seg Neutrophils % Seg Neuts % (Manual) Baso # (Auto) Lymphocytes % (Manual) Monocytes % (Manual) Eosinophils % (Manual) Basophils % (Manual) Seg Neutrophils # Seg Neutrophils # Man Lymphocytes # (Manual) Monocytes # (Manual) Eosinophils # (Manual) Nucleated RBC % Basophils # (Manual) PT INR APTT Heparin Anti-Xa Level ABG pH POC ABG pO2 ABG pO2 ABG HCO3 ABG O2 Saturation ABG Base Excess POC ABG pCO2 ABG Hemoglobin ABG Oxyhemoglobin ABG Glucose Oxyhemoglobin Sodium Potassium Chloride Carbon Dioxide BUN Creatinine 0.7 L Glucose 110 H POC Glucose 129 H 117 H Lactic Acid Calcium Phosphorus Magnesium AST ALT Lactate Dehydrogenase CK-MB (CK-2) C-Reactive Protein NT-Pro-B Natriuret Pep Total Protein Albumin Arterial Blood Glucose Urine WBC (Auto) 01/10/20 01/11/20 01/11/20 23:52 03:19 12:09 WBC RBC Hgb Hct MCHC RDW MCV MCH Lymph % (Auto) Armstrong % (Auto) Armstrong # Eos # Lymph # (Auto) Armstrong # (Auto) Eos # (Auto) Seg Neutrophils % Seg Neuts % (Manual) Baso # (Auto) Lymphocytes % (Manual) Monocytes % (Manual) Eosinophils % (Manual) Basophils % (Manual) Seg Neutrophils # Seg Neutrophils # Man Lymphocytes # (Manual) Monocytes # (Manual) Eosinophils # (Manual) Nucleated RBC % Basophils # (Manual) PT INR APTT Heparin Anti-Xa Level ABG pH POC ABG pO2 ABG pO2 ABG HCO3 ABG O2 Saturation ABG Base Excess POC ABG pCO2 ABG Hemoglobin ABG Oxyhemoglobin ABG Glucose Oxyhemoglobin Sodium Potassium Chloride Carbon Dioxide BUN Creatinine Glucose POC Glucose 117 H 136 H 115 H Lactic Acid Calcium Phosphorus Magnesium AST ALT Lactate Dehydrogenase CK-MB (CK-2) C-Reactive Protein NT-Pro-B Natriuret Pep Total Protein Albumin Arterial Blood Glucose Urine WBC (Auto) 01/11/20 01/11/20 01/12/20 18:27 23:28 00:23 WBC RBC Hgb 9.8 L Hct 31.6 L MCHC 31 L RDW 17.8 H MCV 83 L MCH 26 L Lymph % (Auto) Armstrong % (Auto) 8.0 H Armstrong # Eos # Lymph # (Auto) Armstrong # (Auto) Eos # (Auto) Seg Neutrophils % Seg Neuts % (Manual) Baso # (Auto) Lymphocytes % (Manual) Monocytes % (Manual) Eosinophils % (Manual) Basophils % (Manual) Seg Neutrophils # Seg Neutrophils # Man Lymphocytes # (Manual) Monocytes # (Manual) Eosinophils # (Manual) Nucleated RBC % Basophils # (Manual) PT INR APTT Heparin Anti-Xa Level ABG pH POC ABG pO2 ABG pO2 ABG HCO3 ABG O2 Saturation ABG Base Excess POC ABG pCO2 ABG Hemoglobin ABG Oxyhemoglobin ABG Glucose Oxyhemoglobin Sodium Potassium Chloride Carbon Dioxide BUN Creatinine Glucose POC Glucose 118 H 122 H Lactic Acid Calcium Phosphorus Magnesium AST ALT Lactate Dehydrogenase CK-MB (CK-2) C-Reactive Protein NT-Pro-B Natriuret Pep Total Protein Albumin Arterial Blood Glucose Urine WBC (Auto) 01/12/20 01/12/20 01/12/20 00:23 04:18 04:18 WBC RBC Hgb 9.6 L Hct 30.9 L MCHC 31 L RDW 17.3 H MCV 81 L MCH 25 L Lymph % (Auto) Armstrong % (Auto) Armstrong # Eos # Lymph # (Auto) Armstrong # (Auto) Eos # (Auto) Seg Neutrophils % Seg Neuts % (Manual) Baso # (Auto) Lymphocytes % (Manual) Monocytes % (Manual) Eosinophils % (Manual) Basophils % (Manual) Seg Neutrophils # Seg Neutrophils # Man Lymphocytes # (Manual) Monocytes # (Manual) Eosinophils # (Manual) Nucleated RBC % Basophils # (Manual) PT INR APTT Heparin Anti-Xa Level ABG pH POC ABG pO2 ABG pO2 ABG HCO3 ABG O2 Saturation ABG Base Excess POC ABG pCO2 ABG Hemoglobin ABG Oxyhemoglobin ABG Glucose Oxyhemoglobin Sodium Potassium Chloride Carbon Dioxide BUN Creatinine 0.7 L 0.7 L Glucose 111 H 108 H POC Glucose Lactic Acid Calcium Phosphorus Magnesium AST ALT Lactate Dehydrogenase CK-MB (CK-2) C-Reactive Protein NT-Pro-B Natriuret Pep Total Protein Albumin 2.6 L Arterial Blood Glucose Urine WBC (Auto) 01/12/20 01/12/20 01/12/20 06:03 12:27 13:58 WBC RBC Hgb Hct MCHC RDW MCV MCH Lymph % (Auto) Armstrong % (Auto) Armstrong # Eos # Lymph # (Auto) Armstrong # (Auto) Eos # (Auto) Seg Neutrophils % Seg Neuts % (Manual) Baso # (Auto) Lymphocytes % (Manual) Monocytes % (Manual) Eosinophils % (Manual) Basophils % (Manual) Seg Neutrophils # Seg Neutrophils # Man Lymphocytes # (Manual) Monocytes # (Manual) Eosinophils # (Manual) Nucleated RBC % Basophils # (Manual) PT INR APTT Heparin Anti-Xa Level ABG pH 7.453 H POC ABG pO2 76.6 L ABG pO2 ABG HCO3 ABG O2 Saturation ABG Base Excess POC ABG pCO2 ABG Hemoglobin 10.3 L ABG Oxyhemoglobin ABG Glucose 99 H Oxyhemoglobin Sodium Potassium Chloride Carbon Dioxide BUN Creatinine Glucose POC Glucose 128 H 121 H Lactic Acid Calcium Phosphorus Magnesium AST ALT Lactate Dehydrogenase CK-MB (CK-2) C-Reactive Protein NT-Pro-B Natriuret Pep Total Protein Albumin Arterial Blood Glucose 99 H Urine WBC (Auto) 01/12/20 01/13/20 01/13/20 18:24 12:01 17:46 WBC RBC Hgb Hct MCHC RDW MCV MCH Lymph % (Auto) Armstrong % (Auto) Armstrong # Eos # Lymph # (Auto) Armstrong # (Auto) Eos # (Auto) Seg Neutrophils % Seg Neuts % (Manual) Baso # (Auto) Lymphocytes % (Manual) Monocytes % (Manual) Eosinophils % (Manual) Basophils % (Manual) Seg Neutrophils # Seg Neutrophils # Man Lymphocytes # (Manual) Monocytes # (Manual) Eosinophils # (Manual) Nucleated RBC % Basophils # (Manual) PT INR APTT Heparin Anti-Xa Level ABG pH POC ABG pO2 ABG pO2 ABG HCO3 ABG O2 Saturation ABG Base Excess POC ABG pCO2 ABG Hemoglobin ABG Oxyhemoglobin ABG Glucose Oxyhemoglobin Sodium Potassium Chloride Carbon Dioxide BUN Creatinine Glucose POC Glucose 119 H 107 H 124 H Lactic Acid Calcium Phosphorus Magnesium AST ALT Lactate Dehydrogenase CK-MB (CK-2) C-Reactive Protein NT-Pro-B Natriuret Pep Total Protein Albumin Arterial Blood Glucose Urine WBC (Auto) 01/13/20 01/14/20 01/14/20 20:40 00:10 05:33 WBC RBC Hgb Hct MCHC RDW MCV MCH Lymph % (Auto) Armstrong % (Auto) Armstrong # Eos # Lymph # (Auto) Armstrong # (Auto) Eos # (Auto) Seg Neutrophils % Seg Neuts % (Manual) Baso # (Auto) Lymphocytes % (Manual) Monocytes % (Manual) Eosinophils % (Manual) Basophils % (Manual) Seg Neutrophils # Seg Neutrophils # Man Lymphocytes # (Manual) Monocytes # (Manual) Eosinophils # (Manual) Nucleated RBC % Basophils # (Manual) PT INR APTT Heparin Anti-Xa Level ABG pH POC ABG pO2 ABG pO2 65.3 L ABG HCO3 31.8 H ABG O2 Saturation 93.5 L ABG Base Excess 6.7 H POC ABG pCO2 ABG Hemoglobin 13.3 L ABG Oxyhemoglobin ABG Glucose Oxyhemoglobin 90.9 L Sodium Potassium Chloride Carbon Dioxide BUN Creatinine Glucose POC Glucose 111 H 111 H Lactic Acid Calcium Phosphorus Magnesium AST ALT Lactate Dehydrogenase CK-MB (CK-2) C-Reactive Protein NT-Pro-B Natriuret Pep Total Protein Albumin Arterial Blood Glucose Urine WBC (Auto) 01/14/20 01/14/20 01/14/20 12:10 16:14 16:14 WBC RBC Hgb 10.6 L Hct 34.2 L MCHC 31 L RDW 18.3 H MCV 83 L MCH 26 L Lymph % (Auto) Armstrong % (Auto) 7.4 H Armstrong # Eos # Lymph # (Auto) Armstrong # (Auto) Eos # (Auto) Seg Neutrophils % 71.9 H Seg Neuts % (Manual) Baso # (Auto) Lymphocytes % (Manual) Monocytes % (Manual) Eosinophils % (Manual) Basophils % (Manual) Seg Neutrophils # Seg Neutrophils # Man Lymphocytes # (Manual) Monocytes # (Manual) Eosinophils # (Manual) Nucleated RBC % Basophils # (Manual) PT INR APTT Heparin Anti-Xa Level ABG pH POC ABG pO2 ABG pO2 ABG HCO3 ABG O2 Saturation ABG Base Excess POC ABG pCO2 ABG Hemoglobin ABG Oxyhemoglobin ABG Glucose Oxyhemoglobin Sodium Potassium Chloride Carbon Dioxide 31 H BUN Creatinine 0.6 L Glucose 131 H POC Glucose 139 H Lactic Acid Calcium Phosphorus Magnesium AST ALT Lactate Dehydrogenase CK-MB (CK-2) C-Reactive Protein NT-Pro-B Natriuret Pep Total Protein Albumin Arterial Blood Glucose Urine WBC (Auto) 01/14/20 01/15/20 01/15/20 18:05 00:52 05:35 WBC RBC Hgb Hct MCHC RDW MCV MCH Lymph % (Auto) Armstrong % (Auto) Armstrong # Eos # Lymph # (Auto) Armstrong # (Auto) Eos # (Auto) Seg Neutrophils % Seg Neuts % (Manual) Baso # (Auto) Lymphocytes % (Manual) Monocytes % (Manual) Eosinophils % (Manual) Basophils % (Manual) Seg Neutrophils # Seg Neutrophils # Man Lymphocytes # (Manual) Monocytes # (Manual) Eosinophils # (Manual) Nucleated RBC % Basophils # (Manual) PT INR APTT Heparin Anti-Xa Level ABG pH POC ABG pO2 ABG pO2 ABG HCO3 ABG O2 Saturation ABG Base Excess POC ABG pCO2 ABG Hemoglobin ABG Oxyhemoglobin ABG Glucose Oxyhemoglobin Sodium Potassium Chloride Carbon Dioxide BUN Creatinine Glucose POC Glucose 147 H 140 H 159 H Lactic Acid Calcium Phosphorus Magnesium AST ALT Lactate Dehydrogenase CK-MB (CK-2) C-Reactive Protein NT-Pro-B Natriuret Pep Total Protein Albumin Arterial Blood Glucose Urine WBC (Auto) 01/15/20 01/15/20 01/16/20 12:52 17:43 00:32 WBC RBC Hgb Hct MCHC RDW MCV MCH Lymph % (Auto) Armstrong % (Auto) Armstrong # Eos # Lymph # (Auto) Armstrong # (Auto) Eos # (Auto) Seg Neutrophils % Seg Neuts % (Manual) Baso # (Auto) Lymphocytes % (Manual) Monocytes % (Manual) Eosinophils % (Manual) Basophils % (Manual) Seg Neutrophils # Seg Neutrophils # Man Lymphocytes # (Manual) Monocytes # (Manual) Eosinophils # (Manual) Nucleated RBC % Basophils # (Manual) PT INR APTT Heparin Anti-Xa Level ABG pH POC ABG pO2 ABG pO2 ABG HCO3 ABG O2 Saturation ABG Base Excess POC ABG pCO2 ABG Hemoglobin ABG Oxyhemoglobin ABG Glucose Oxyhemoglobin Sodium Potassium Chloride Carbon Dioxide BUN Creatinine Glucose POC Glucose 164 H 167 H 153 H Lactic Acid Calcium Phosphorus Magnesium AST ALT Lactate Dehydrogenase CK-MB (CK-2) C-Reactive Protein NT-Pro-B Natriuret Pep Total Protein Albumin Arterial Blood Glucose Urine WBC (Auto) 01/16/20 01/16/20 01/17/20 05:46 11:48 06:38 WBC RBC Hgb Hct MCHC RDW MCV MCH Lymph % (Auto) Armstrong % (Auto) Armstrong # Eos # Lymph # (Auto) Armstrong # (Auto) Eos # (Auto) Seg Neutrophils % Seg Neuts % (Manual) Baso # (Auto) Lymphocytes % (Manual) Monocytes % (Manual) Eosinophils % (Manual) Basophils % (Manual) Seg Neutrophils # Seg Neutrophils # Man Lymphocytes # (Manual) Monocytes # (Manual) Eosinophils # (Manual) Nucleated RBC % Basophils # (Manual) PT INR APTT Heparin Anti-Xa Level ABG pH POC ABG pO2 ABG pO2 ABG HCO3 ABG O2 Saturation ABG Base Excess POC ABG pCO2 ABG Hemoglobin ABG Oxyhemoglobin ABG Glucose Oxyhemoglobin Sodium Potassium Chloride Carbon Dioxide BUN Creatinine Glucose POC Glucose 163 H 155 H 116 H Lactic Acid Calcium Phosphorus Magnesium AST ALT Lactate Dehydrogenase CK-MB (CK-2) C-Reactive Protein NT-Pro-B Natriuret Pep Total Protein Albumin Arterial Blood Glucose Urine WBC (Auto) 01/17/20 01/17/20 01/18/20 11:36 17:43 00:12 WBC RBC Hgb Hct MCHC RDW MCV MCH Lymph % (Auto) Armstrong % (Auto) Armstrong # Eos # Lymph # (Auto) Armstrong # (Auto) Eos # (Auto) Seg Neutrophils % Seg Neuts % (Manual) Baso # (Auto) Lymphocytes % (Manual) Monocytes % (Manual) Eosinophils % (Manual) Basophils % (Manual) Seg Neutrophils # Seg Neutrophils # Man Lymphocytes # (Manual) Monocytes # (Manual) Eosinophils # (Manual) Nucleated RBC % Basophils # (Manual) PT INR APTT Heparin Anti-Xa Level ABG pH POC ABG pO2 ABG pO2 ABG HCO3 ABG O2 Saturation ABG Base Excess POC ABG pCO2 ABG Hemoglobin ABG Oxyhemoglobin ABG Glucose Oxyhemoglobin Sodium Potassium Chloride Carbon Dioxide BUN Creatinine Glucose POC Glucose 110 H 134 H 108 H Lactic Acid Calcium Phosphorus Magnesium AST ALT Lactate Dehydrogenase CK-MB (CK-2) C-Reactive Protein NT-Pro-B Natriuret Pep Total Protein Albumin Arterial Blood Glucose Urine WBC (Auto) 01/18/20 01/18/20 01/18/20 05:37 06:46 06:46 WBC RBC Hgb 10.1 L Hct 32.2 L MCHC 31 L RDW 18.1 H MCV 81 L MCH 25 L Lymph % (Auto) Armstrong % (Auto) Armstrong # Eos # Lymph # (Auto) Armstrong # (Auto) Eos # (Auto) Seg Neutrophils % 71.9 H Seg Neuts % (Manual) Baso # (Auto) Lymphocytes % (Manual) Monocytes % (Manual) Eosinophils % (Manual) Basophils % (Manual) Seg Neutrophils # Seg Neutrophils # Man Lymphocytes # (Manual) Monocytes # (Manual) Eosinophils # (Manual) Nucleated RBC % Basophils # (Manual) PT INR APTT Heparin Anti-Xa Level ABG pH POC ABG pO2 ABG pO2 ABG HCO3 ABG O2 Saturation ABG Base Excess POC ABG pCO2 ABG Hemoglobin ABG Oxyhemoglobin ABG Glucose Oxyhemoglobin Sodium Potassium Chloride Carbon Dioxide BUN Creatinine 0.7 L Glucose 155 H POC Glucose 168 H Lactic Acid Calcium Phosphorus Magnesium AST ALT Lactate Dehydrogenase CK-MB (CK-2) C-Reactive Protein NT-Pro-B Natriuret Pep Total Protein Albumin Arterial Blood Glucose Urine WBC (Auto) 01/18/20 01/18/20 01/18/20 12:05 17:14 23:28 WBC RBC Hgb Hct MCHC RDW MCV MCH Lymph % (Auto) Armstrong % (Auto) Armstrong # Eos # Lymph # (Auto) Armstrong # (Auto) Eos # (Auto) Seg Neutrophils % Seg Neuts % (Manual) Baso # (Auto) Lymphocytes % (Manual) Monocytes % (Manual) Eosinophils % (Manual) Basophils % (Manual) Seg Neutrophils # Seg Neutrophils # Man Lymphocytes # (Manual) Monocytes # (Manual) Eosinophils # (Manual) Nucleated RBC % Basophils # (Manual) PT INR APTT Heparin Anti-Xa Level ABG pH POC ABG pO2 ABG pO2 ABG HCO3 ABG O2 Saturation ABG Base Excess POC ABG pCO2 ABG Hemoglobin ABG Oxyhemoglobin ABG Glucose Oxyhemoglobin Sodium Potassium Chloride Carbon Dioxide BUN Creatinine Glucose POC Glucose 128 H 126 H 128 H Lactic Acid Calcium Phosphorus Magnesium AST ALT Lactate Dehydrogenase CK-MB (CK-2) C-Reactive Protein NT-Pro-B Natriuret Pep Total Protein Albumin Arterial Blood Glucose Urine WBC (Auto) 01/19/20 01/19/20 01/19/20 05:39 12:33 17:36 WBC RBC Hgb Hct MCHC RDW MCV MCH Lymph % (Auto) Armstrong % (Auto) Armstrong # Eos # Lymph # (Auto) Armstrong # (Auto) Eos # (Auto) Seg Neutrophils % Seg Neuts % (Manual) Baso # (Auto) Lymphocytes % (Manual) Monocytes % (Manual) Eosinophils % (Manual) Basophils % (Manual) Seg Neutrophils # Seg Neutrophils # Man Lymphocytes # (Manual) Monocytes # (Manual) Eosinophils # (Manual) Nucleated RBC % Basophils # (Manual) PT INR APTT Heparin Anti-Xa Level ABG pH POC ABG pO2 ABG pO2 ABG HCO3 ABG O2 Saturation ABG Base Excess POC ABG pCO2 ABG Hemoglobin ABG Oxyhemoglobin ABG Glucose Oxyhemoglobin Sodium Potassium Chloride Carbon Dioxide BUN Creatinine Glucose POC Glucose 164 H 171 H 152 H Lactic Acid Calcium Phosphorus Magnesium AST ALT Lactate Dehydrogenase CK-MB (CK-2) C-Reactive Protein NT-Pro-B Natriuret Pep Total Protein Albumin Arterial Blood Glucose Urine WBC (Auto) 01/20/20 01/20/20 01/20/20 00:12 05:20 05:35 WBC RBC Hgb 9.2 L Hct 29.4 L MCHC 31 L RDW 17.9 H MCV 81 L MCH 25 L Lymph % (Auto) Armstrong % (Auto) Armstrong # Eos # Lymph # (Auto) Armstrong # (Auto) Eos # (Auto) Seg Neutrophils % Seg Neuts % (Manual) Baso # (Auto) Lymphocytes % (Manual) Monocytes % (Manual) Eosinophils % (Manual) Basophils % (Manual) Seg Neutrophils # Seg Neutrophils # Man Lymphocytes # (Manual) Monocytes # (Manual) Eosinophils # (Manual) Nucleated RBC % Basophils # (Manual) PT INR APTT Heparin Anti-Xa Level ABG pH POC ABG pO2 ABG pO2 ABG HCO3 ABG O2 Saturation ABG Base Excess POC ABG pCO2 ABG Hemoglobin ABG Oxyhemoglobin ABG Glucose Oxyhemoglobin Sodium Potassium Chloride Carbon Dioxide BUN Creatinine Glucose POC Glucose 120 H 136 H Lactic Acid Calcium Phosphorus Magnesium AST ALT Lactate Dehydrogenase CK-MB (CK-2) C-Reactive Protein NT-Pro-B Natriuret Pep Total Protein Albumin Arterial Blood Glucose Urine WBC (Auto) 01/20/20 01/20/20 01/20/20 05:40 11:58 14:55 WBC RBC Hgb 9.0 L Hct 28.3 L MCHC RDW MCV MCH Lymph % (Auto) Armstrong % (Auto) Armstrong # Eos # Lymph # (Auto) Armstrong # (Auto) Eos # (Auto) Seg Neutrophils % Seg Neuts % (Manual) Baso # (Auto) Lymphocytes % (Manual) Monocytes % (Manual) Eosinophils % (Manual) Basophils % (Manual) Seg Neutrophils # Seg Neutrophils # Man Lymphocytes # (Manual) Monocytes # (Manual) Eosinophils # (Manual) Nucleated RBC % Basophils # (Manual) PT INR APTT Heparin Anti-Xa Level ABG pH POC ABG pO2 ABG pO2 ABG HCO3 ABG O2 Saturation ABG Base Excess POC ABG pCO2 ABG Hemoglobin ABG Oxyhemoglobin ABG Glucose Oxyhemoglobin Sodium Potassium Chloride Carbon Dioxide 32 H BUN 22 H Creatinine 0.7 L Glucose 128 H POC Glucose 152 H Lactic Acid Calcium Phosphorus Magnesium AST ALT Lactate Dehydrogenase CK-MB (CK-2) C-Reactive Protein NT-Pro-B Natriuret Pep Total Protein Albumin Arterial Blood Glucose Urine WBC (Auto) 01/20/20 01/20/20 01/20/20 14:55 18:14 21:35 WBC RBC Hgb Hct MCHC RDW MCV MCH Lymph % (Auto) Armstrong % (Auto) Armstrong # Eos # Lymph # (Auto) Armstrong # (Auto) Eos # (Auto) Seg Neutrophils % Seg Neuts % (Manual) Baso # (Auto) Lymphocytes % (Manual) Monocytes % (Manual) Eosinophils % (Manual) Basophils % (Manual) Seg Neutrophils # Seg Neutrophils # Man Lymphocytes # (Manual) Monocytes # (Manual) Eosinophils # (Manual) Nucleated RBC % Basophils # (Manual) PT 20.4 H INR 1.72 H APTT 40.6 H Heparin Anti-Xa Level > 2.00 H ABG pH POC ABG pO2 ABG pO2 ABG HCO3 ABG O2 Saturation ABG Base Excess POC ABG pCO2 ABG Hemoglobin ABG Oxyhemoglobin ABG Glucose Oxyhemoglobin Sodium Potassium Chloride Carbon Dioxide BUN Creatinine Glucose POC Glucose 150 H Lactic Acid Calcium Phosphorus Magnesium AST ALT Lactate Dehydrogenase CK-MB (CK-2) C-Reactive Protein NT-Pro-B Natriuret Pep Total Protein Albumin Arterial Blood Glucose Urine WBC (Auto) 01/21/20 01/21/20 01/21/20 00:30 05:47 05:59 WBC RBC Hgb Hct MCHC RDW MCV MCH Lymph % (Auto) Armstrong % (Auto) Armstrong # Eos # Lymph # (Auto) Armstrong # (Auto) Eos # (Auto) Seg Neutrophils % Seg Neuts % (Manual) Baso # (Auto) Lymphocytes % (Manual) Monocytes % (Manual) Eosinophils % (Manual) Basophils % (Manual) Seg Neutrophils # Seg Neutrophils # Man Lymphocytes # (Manual) Monocytes # (Manual) Eosinophils # (Manual) Nucleated RBC % Basophils # (Manual) PT INR APTT Heparin Anti-Xa Level 1.93 H ABG pH POC ABG pO2 ABG pO2 ABG HCO3 ABG O2 Saturation ABG Base Excess POC ABG pCO2 ABG Hemoglobin ABG Oxyhemoglobin ABG Glucose Oxyhemoglobin Sodium Potassium Chloride Carbon Dioxide BUN Creatinine Glucose POC Glucose 126 H 148 H Lactic Acid Calcium Phosphorus Magnesium AST ALT Lactate Dehydrogenase CK-MB (CK-2) C-Reactive Protein NT-Pro-B Natriuret Pep Total Protein Albumin Arterial Blood Glucose Urine WBC (Auto) 01/21/20 01/21/20 01/21/20 12:32 18:20 23:54 WBC RBC Hgb Hct MCHC RDW MCV MCH Lymph % (Auto) Armstrong % (Auto) Armstrong # Eos # Lymph # (Auto) Armstrong # (Auto) Eos # (Auto) Seg Neutrophils % Seg Neuts % (Manual) Baso # (Auto) Lymphocytes % (Manual) Monocytes % (Manual) Eosinophils % (Manual) Basophils % (Manual) Seg Neutrophils # Seg Neutrophils # Man Lymphocytes # (Manual) Monocytes # (Manual) Eosinophils # (Manual) Nucleated RBC % Basophils # (Manual) PT INR APTT Heparin Anti-Xa Level 1.28 H ABG pH POC ABG pO2 ABG pO2 ABG HCO3 ABG O2 Saturation ABG Base Excess POC ABG pCO2 ABG Hemoglobin ABG Oxyhemoglobin ABG Glucose Oxyhemoglobin Sodium Potassium Chloride Carbon Dioxide BUN Creatinine Glucose POC Glucose 112 H 146 H Lactic Acid Calcium Phosphorus Magnesium AST ALT Lactate Dehydrogenase CK-MB (CK-2) C-Reactive Protein NT-Pro-B Natriuret Pep Total Protein Albumin Arterial Blood Glucose Urine WBC (Auto) 01/22/20 01/22/20 01/22/20 04:45 04:45 05:48 WBC RBC Hgb 9.3 L Hct 29.0 L MCHC RDW MCV MCH Lymph % (Auto) Armstrong % (Auto) Armstrong # Eos # Lymph # (Auto) Armstrong # (Auto) Eos # (Auto) Seg Neutrophils % Seg Neuts % (Manual) Baso # (Auto) Lymphocytes % (Manual) Monocytes % (Manual) Eosinophils % (Manual) Basophils % (Manual) Seg Neutrophils # Seg Neutrophils # Man Lymphocytes # (Manual) Monocytes # (Manual) Eosinophils # (Manual) Nucleated RBC % Basophils # (Manual) PT INR APTT Heparin Anti-Xa Level 1.34 H ABG pH POC ABG pO2 ABG pO2 ABG HCO3 ABG O2 Saturation ABG Base Excess POC ABG pCO2 ABG Hemoglobin ABG Oxyhemoglobin ABG Glucose Oxyhemoglobin Sodium Potassium Chloride Carbon Dioxide BUN Creatinine Glucose POC Glucose 142 H Lactic Acid Calcium Phosphorus Magnesium AST ALT Lactate Dehydrogenase CK-MB (CK-2) C-Reactive Protein NT-Pro-B Natriuret Pep Total Protein Albumin Arterial Blood Glucose Urine WBC (Auto) 01/22/20 01/22/20 01/22/20 08:09 08:22 09:58 WBC RBC Hgb Hct MCHC RDW MCV MCH Lymph % (Auto) Armstrong % (Auto) Armstrong # Eos # Lymph # (Auto) Armstrong # (Auto) Eos # (Auto) Seg Neutrophils % Seg Neuts % (Manual) Baso # (Auto) Lymphocytes % (Manual) Monocytes % (Manual) Eosinophils % (Manual) Basophils % (Manual) Seg Neutrophils # Seg Neutrophils # Man Lymphocytes # (Manual) Monocytes # (Manual) Eosinophils # (Manual) Nucleated RBC % Basophils # (Manual) PT 16.9 H INR 1.34 H APTT Heparin Anti-Xa Level ABG pH POC ABG pO2 ABG pO2 ABG HCO3 ABG O2 Saturation ABG Base Excess POC ABG pCO2 ABG Hemoglobin ABG Oxyhemoglobin ABG Glucose Oxyhemoglobin Sodium Potassium Chloride 97.8 L Carbon Dioxide BUN 29 H Creatinine Glucose 128 H POC Glucose 131 H Lactic Acid Calcium Phosphorus Magnesium AST ALT Lactate Dehydrogenase CK-MB (CK-2) C-Reactive Protein NT-Pro-B Natriuret Pep Total Protein Albumin Arterial Blood Glucose Urine WBC (Auto) 01/22/20 01/22/20 01/22/20 12:44 16:13 18:18 WBC RBC Hgb Hct MCHC RDW MCV MCH Lymph % (Auto) Armstrong % (Auto) Armstrong # Eos # Lymph # (Auto) Armstrong # (Auto) Eos # (Auto) Seg Neutrophils % Seg Neuts % (Manual) Baso # (Auto) Lymphocytes % (Manual) Monocytes % (Manual) Eosinophils % (Manual) Basophils % (Manual) Seg Neutrophils # Seg Neutrophils # Man Lymphocytes # (Manual) Monocytes # (Manual) Eosinophils # (Manual) Nucleated RBC % Basophils # (Manual) PT INR APTT Heparin Anti-Xa Level ABG pH POC ABG pO2 ABG pO2 ABG HCO3 ABG O2 Saturation ABG Base Excess POC ABG pCO2 ABG Hemoglobin ABG Oxyhemoglobin ABG Glucose Oxyhemoglobin Sodium Potassium Chloride Carbon Dioxide BUN Creatinine Glucose POC Glucose 156 H 133 H 155 H Lactic Acid Calcium Phosphorus Magnesium AST ALT Lactate Dehydrogenase CK-MB (CK-2) C-Reactive Protein NT-Pro-B Natriuret Pep Total Protein Albumin Arterial Blood Glucose Urine WBC (Auto) 01/22/20 01/23/20 01/23/20 23:22 05:37 12:59 WBC RBC Hgb Hct MCHC RDW MCV MCH Lymph % (Auto) Armstrong % (Auto) Armstrong # Eos # Lymph # (Auto) Armstrong # (Auto) Eos # (Auto) Seg Neutrophils % Seg Neuts % (Manual) Baso # (Auto) Lymphocytes % (Manual) Monocytes % (Manual) Eosinophils % (Manual) Basophils % (Manual) Seg Neutrophils # Seg Neutrophils # Man Lymphocytes # (Manual) Monocytes # (Manual) Eosinophils # (Manual) Nucleated RBC % Basophils # (Manual) PT INR APTT Heparin Anti-Xa Level ABG pH POC ABG pO2 ABG pO2 ABG HCO3 ABG O2 Saturation ABG Base Excess POC ABG pCO2 ABG Hemoglobin ABG Oxyhemoglobin ABG Glucose Oxyhemoglobin Sodium Potassium Chloride Carbon Dioxide BUN Creatinine Glucose POC Glucose 148 H 163 H 175 H Lactic Acid Calcium Phosphorus Magnesium AST ALT Lactate Dehydrogenase CK-MB (CK-2) C-Reactive Protein NT-Pro-B Natriuret Pep Total Protein Albumin Arterial Blood Glucose Urine WBC (Auto) 01/23/20 01/23/20 01/24/20 17:28 23:56 04:30 WBC RBC 3.46 L Hgb 8.8 L Hct 27.8 L MCHC RDW 18.2 H MCV 81 L MCH 25 L Lymph % (Auto) Armstrong % (Auto) 7.8 H Armstrong # Eos # Lymph # (Auto) Armstrong # (Auto) Eos # (Auto) Seg Neutrophils % Seg Neuts % (Manual) Baso # (Auto) Lymphocytes % (Manual) Monocytes % (Manual) Eosinophils % (Manual) Basophils % (Manual) Seg Neutrophils # Seg Neutrophils # Man Lymphocytes # (Manual) Monocytes # (Manual) Eosinophils # (Manual) Nucleated RBC % Basophils # (Manual) PT INR APTT Heparin Anti-Xa Level ABG pH POC ABG pO2 ABG pO2 ABG HCO3 ABG O2 Saturation ABG Base Excess POC ABG pCO2 ABG Hemoglobin ABG Oxyhemoglobin ABG Glucose Oxyhemoglobin Sodium Potassium Chloride Carbon Dioxide BUN Creatinine Glucose POC Glucose 165 H 177 H Lactic Acid Calcium Phosphorus Magnesium AST ALT Lactate Dehydrogenase CK-MB (CK-2) C-Reactive Protein NT-Pro-B Natriuret Pep Total Protein Albumin Arterial Blood Glucose Urine WBC (Auto) 01/24/20 01/24/20 01/24/20 04:30 07:18 12:06 WBC RBC Hgb Hct MCHC RDW MCV MCH Lymph % (Auto) Armstrong % (Auto) Armstrong # Eos # Lymph # (Auto) Armstrong # (Auto) Eos # (Auto) Seg Neutrophils % Seg Neuts % (Manual) Baso # (Auto) Lymphocytes % (Manual) Monocytes % (Manual) Eosinophils % (Manual) Basophils % (Manual) Seg Neutrophils # Seg Neutrophils # Man Lymphocytes # (Manual) Monocytes # (Manual) Eosinophils # (Manual) Nucleated RBC % Basophils # (Manual) PT INR APTT Heparin Anti-Xa Level ABG pH POC ABG pO2 ABG pO2 ABG HCO3 ABG O2 Saturation ABG Base Excess POC ABG pCO2 ABG Hemoglobin ABG Oxyhemoglobin ABG Glucose Oxyhemoglobin Sodium Potassium Chloride 97.9 L Carbon Dioxide BUN 31 H Creatinine Glucose 146 H POC Glucose 151 H 133 H Lactic Acid Calcium Phosphorus Magnesium AST ALT Lactate Dehydrogenase CK-MB (CK-2) C-Reactive Protein NT-Pro-B Natriuret Pep Total Protein Albumin Arterial Blood Glucose Urine WBC (Auto) 01/24/20 01/25/20 01/25/20 17:36 00:08 04:25 WBC RBC 3.50 L Hgb 8.7 L Hct 27.9 L MCHC 31 L RDW 18.2 H MCV 80 L MCH 25 L Lymph % (Auto) Armstrong % (Auto) 8.5 H Armstrong # Eos # Lymph # (Auto) Armstrong # (Auto) Eos # (Auto) Seg Neutrophils % Seg Neuts % (Manual) Baso # (Auto) Lymphocytes % (Manual) Monocytes % (Manual) Eosinophils % (Manual) Basophils % (Manual) Seg Neutrophils # Seg Neutrophils # Man Lymphocytes # (Manual) Monocytes # (Manual) Eosinophils # (Manual) Nucleated RBC % Basophils # (Manual) PT INR APTT Heparin Anti-Xa Level ABG pH POC ABG pO2 ABG pO2 ABG HCO3 ABG O2 Saturation ABG Base Excess POC ABG pCO2 ABG Hemoglobin ABG Oxyhemoglobin ABG Glucose Oxyhemoglobin Sodium Potassium Chloride Carbon Dioxide BUN Creatinine Glucose POC Glucose 133 H 129 H Lactic Acid Calcium Phosphorus Magnesium AST ALT Lactate Dehydrogenase CK-MB (CK-2) C-Reactive Protein NT-Pro-B Natriuret Pep Total Protein Albumin Arterial Blood Glucose Urine WBC (Auto) 01/25/20 01/25/20 01/25/20 04:25 05:38 11:52 WBC RBC Hgb Hct MCHC RDW MCV MCH Lymph % (Auto) Armstrong % (Auto) Armstrong # Eos # Lymph # (Auto) Armstrong # (Auto) Eos # (Auto) Seg Neutrophils % Seg Neuts % (Manual) Baso # (Auto) Lymphocytes % (Manual) Monocytes % (Manual) Eosinophils % (Manual) Basophils % (Manual) Seg Neutrophils # Seg Neutrophils # Man Lymphocytes # (Manual) Monocytes # (Manual) Eosinophils # (Manual) Nucleated RBC % Basophils # (Manual) PT INR APTT Heparin Anti-Xa Level ABG pH POC ABG pO2 ABG pO2 ABG HCO3 ABG O2 Saturation ABG Base Excess POC ABG pCO2 ABG Hemoglobin ABG Oxyhemoglobin ABG Glucose Oxyhemoglobin Sodium Potassium Chloride Carbon Dioxide BUN 30 H Creatinine Glucose 134 H POC Glucose 129 H 134 H Lactic Acid Calcium Phosphorus Magnesium AST ALT Lactate Dehydrogenase CK-MB (CK-2) C-Reactive Protein NT-Pro-B Natriuret Pep Total Protein Albumin Arterial Blood Glucose Urine WBC (Auto) 01/25/20 01/25/20 01/26/20 17:13 21:02 00:59 WBC RBC Hgb Hct MCHC RDW MCV MCH Lymph % (Auto) Armstrong % (Auto) Armstrong # Eos # Lymph # (Auto) Armstrong # (Auto) Eos # (Auto) Seg Neutrophils % Seg Neuts % (Manual) Baso # (Auto) Lymphocytes % (Manual) Monocytes % (Manual) Eosinophils % (Manual) Basophils % (Manual) Seg Neutrophils # Seg Neutrophils # Man Lymphocytes # (Manual) Monocytes # (Manual) Eosinophils # (Manual) Nucleated RBC % Basophils # (Manual) PT INR APTT Heparin Anti-Xa Level ABG pH POC ABG pO2 ABG pO2 57.5 L ABG HCO3 31.7 H ABG O2 Saturation 90.3 L ABG Base Excess 6.6 H POC ABG pCO2 ABG Hemoglobin 13.0 L ABG Oxyhemoglobin ABG Glucose Oxyhemoglobin 87.5 L Sodium Potassium Chloride Carbon Dioxide BUN Creatinine Glucose POC Glucose 124 H 196 H Lactic Acid Calcium Phosphorus Magnesium AST ALT Lactate Dehydrogenase CK-MB (CK-2) C-Reactive Protein NT-Pro-B Natriuret Pep Total Protein Albumin Arterial Blood Glucose Urine WBC (Auto) 01/26/20 01/26/20 01/26/20 03:20 05:46 12:46 WBC RBC Hgb 9.2 L Hct 29.4 L MCHC RDW MCV MCH Lymph % (Auto) Armstrong % (Auto) Armstrong # Eos # Lymph # (Auto) Armstrong # (Auto) Eos # (Auto) Seg Neutrophils % Seg Neuts % (Manual) Baso # (Auto) Lymphocytes % (Manual) Monocytes % (Manual) Eosinophils % (Manual) Basophils % (Manual) Seg Neutrophils # Seg Neutrophils # Man Lymphocytes # (Manual) Monocytes # (Manual) Eosinophils # (Manual) Nucleated RBC % Basophils # (Manual) PT INR APTT Heparin Anti-Xa Level ABG pH POC ABG pO2 ABG pO2 ABG HCO3 ABG O2 Saturation ABG Base Excess POC ABG pCO2 ABG Hemoglobin ABG Oxyhemoglobin ABG Glucose Oxyhemoglobin Sodium Potassium Chloride Carbon Dioxide BUN Creatinine Glucose POC Glucose 141 H 122 H Lactic Acid Calcium Phosphorus Magnesium AST ALT Lactate Dehydrogenase CK-MB (CK-2) C-Reactive Protein NT-Pro-B Natriuret Pep Total Protein Albumin Arterial Blood Glucose Urine WBC (Auto) 01/26/20 01/26/20 01/27/20 18:03 23:55 04:47 WBC RBC Hgb Hct MCHC RDW MCV MCH Lymph % (Auto) Armstrong % (Auto) Armstrong # Eos # Lymph # (Auto) Armstrong # (Auto) Eos # (Auto) Seg Neutrophils % Seg Neuts % (Manual) Baso # (Auto) Lymphocytes % (Manual) Monocytes % (Manual) Eosinophils % (Manual) Basophils % (Manual) Seg Neutrophils # Seg Neutrophils # Man Lymphocytes # (Manual) Monocytes # (Manual) Eosinophils # (Manual) Nucleated RBC % Basophils # (Manual) PT INR APTT Heparin Anti-Xa Level ABG pH POC ABG pO2 ABG pO2 ABG HCO3 ABG O2 Saturation ABG Base Excess POC ABG pCO2 ABG Hemoglobin ABG Oxyhemoglobin ABG Glucose Oxyhemoglobin Sodium Potassium Chloride Carbon Dioxide BUN 30 H Creatinine 0.7 L Glucose 135 H POC Glucose 142 H 159 H Lactic Acid Calcium Phosphorus Magnesium AST ALT Lactate Dehydrogenase CK-MB (CK-2) C-Reactive Protein NT-Pro-B Natriuret Pep Total Protein Albumin Arterial Blood Glucose Urine WBC (Auto) 01/27/20 01/27/20 01/27/20 05:43 12:06 17:16 WBC RBC Hgb Hct MCHC RDW MCV MCH Lymph % (Auto) Armstrong % (Auto) Armstrong # Eos # Lymph # (Auto) Armstrong # (Auto) Eos # (Auto) Seg Neutrophils % Seg Neuts % (Manual) Baso # (Auto) Lymphocytes % (Manual) Monocytes % (Manual) Eosinophils % (Manual) Basophils % (Manual) Seg Neutrophils # Seg Neutrophils # Man Lymphocytes # (Manual) Monocytes # (Manual) Eosinophils # (Manual) Nucleated RBC % Basophils # (Manual) PT INR APTT Heparin Anti-Xa Level ABG pH POC ABG pO2 ABG pO2 ABG HCO3 ABG O2 Saturation ABG Base Excess POC ABG pCO2 ABG Hemoglobin ABG Oxyhemoglobin ABG Glucose Oxyhemoglobin Sodium Potassium Chloride Carbon Dioxide BUN Creatinine Glucose POC Glucose 143 H 142 H 128 H Lactic Acid Calcium Phosphorus Magnesium AST ALT Lactate Dehydrogenase CK-MB (CK-2) C-Reactive Protein NT-Pro-B Natriuret Pep Total Protein Albumin Arterial Blood Glucose Urine WBC (Auto) 01/27/20 01/28/20 01/28/20 23:55 04:37 05:55 WBC RBC Hgb 9.4 L Hct 29.9 L MCHC RDW MCV MCH Lymph % (Auto) Armstrong % (Auto) Armstrong # Eos # Lymph # (Auto) Armstrong # (Auto) Eos # (Auto) Seg Neutrophils % Seg Neuts % (Manual) Baso # (Auto) Lymphocytes % (Manual) Monocytes % (Manual) Eosinophils % (Manual) Basophils % (Manual) Seg Neutrophils # Seg Neutrophils # Man Lymphocytes # (Manual) Monocytes # (Manual) Eosinophils # (Manual) Nucleated RBC % Basophils # (Manual) PT INR APTT Heparin Anti-Xa Level ABG pH POC ABG pO2 ABG pO2 ABG HCO3 ABG O2 Saturation ABG Base Excess POC ABG pCO2 ABG Hemoglobin ABG Oxyhemoglobin ABG Glucose Oxyhemoglobin Sodium Potassium Chloride Carbon Dioxide BUN Creatinine Glucose POC Glucose 166 H 169 H Lactic Acid Calcium Phosphorus Magnesium AST ALT Lactate Dehydrogenase CK-MB (CK-2) C-Reactive Protein NT-Pro-B Natriuret Pep Total Protein Albumin Arterial Blood Glucose Urine WBC (Auto) 01/28/20 01/28/20 01/28/20 11:58 17:26 23:46 WBC RBC Hgb Hct MCHC RDW MCV MCH Lymph % (Auto) Armstrong % (Auto) Armstrong # Eos # Lymph # (Auto) Armstrong # (Auto) Eos # (Auto) Seg Neutrophils % Seg Neuts % (Manual) Baso # (Auto) Lymphocytes % (Manual) Monocytes % (Manual) Eosinophils % (Manual) Basophils % (Manual) Seg Neutrophils # Seg Neutrophils # Man Lymphocytes # (Manual) Monocytes # (Manual) Eosinophils # (Manual) Nucleated RBC % Basophils # (Manual) PT INR APTT Heparin Anti-Xa Level ABG pH POC ABG pO2 ABG pO2 ABG HCO3 ABG O2 Saturation ABG Base Excess POC ABG pCO2 ABG Hemoglobin ABG Oxyhemoglobin ABG Glucose Oxyhemoglobin Sodium Potassium Chloride Carbon Dioxide BUN Creatinine Glucose POC Glucose 130 H 126 H 150 H Lactic Acid Calcium Phosphorus Magnesium AST ALT Lactate Dehydrogenase CK-MB (CK-2) C-Reactive Protein NT-Pro-B Natriuret Pep Total Protein Albumin Arterial Blood Glucose Urine WBC (Auto) 01/29/20 01/29/20 01/29/20 04:55 06:00 12:28 WBC RBC Hgb Hct MCHC RDW MCV MCH Lymph % (Auto) Armstrong % (Auto) Armstrong # Eos # Lymph # (Auto) Armstrong # (Auto) Eos # (Auto) Seg Neutrophils % Seg Neuts % (Manual) Baso # (Auto) Lymphocytes % (Manual) Monocytes % (Manual) Eosinophils % (Manual) Basophils % (Manual) Seg Neutrophils # Seg Neutrophils # Man Lymphocytes # (Manual) Monocytes # (Manual) Eosinophils # (Manual) Nucleated RBC % Basophils # (Manual) PT INR APTT Heparin Anti-Xa Level ABG pH POC ABG pO2 ABG pO2 ABG HCO3 ABG O2 Saturation ABG Base Excess POC ABG pCO2 ABG Hemoglobin ABG Oxyhemoglobin ABG Glucose Oxyhemoglobin Sodium Potassium Chloride Carbon Dioxide 34 H BUN Creatinine 0.6 L Glucose 152 H POC Glucose 157 H 156 H Lactic Acid Calcium Phosphorus Magnesium AST ALT Lactate Dehydrogenase CK-MB (CK-2) C-Reactive Protein NT-Pro-B Natriuret Pep Total Protein Albumin Arterial Blood Glucose Urine WBC (Auto) 01/29/20 01/30/20 01/30/20 19:06 00:29 05:39 WBC RBC Hgb Hct MCHC RDW MCV MCH Lymph % (Auto) Armstrong % (Auto) Armstrong # Eos # Lymph # (Auto) Armstrong # (Auto) Eos # (Auto) Seg Neutrophils % Seg Neuts % (Manual) Baso # (Auto) Lymphocytes % (Manual) Monocytes % (Manual) Eosinophils % (Manual) Basophils % (Manual) Seg Neutrophils # Seg Neutrophils # Man Lymphocytes # (Manual) Monocytes # (Manual) Eosinophils # (Manual) Nucleated RBC % Basophils # (Manual) PT INR APTT Heparin Anti-Xa Level ABG pH POC ABG pO2 ABG pO2 ABG HCO3 ABG O2 Saturation ABG Base Excess POC ABG pCO2 ABG Hemoglobin ABG Oxyhemoglobin ABG Glucose Oxyhemoglobin Sodium Potassium Chloride Carbon Dioxide BUN Creatinine Glucose POC Glucose 152 H 132 H 159 H Lactic Acid Calcium Phosphorus Magnesium AST ALT Lactate Dehydrogenase CK-MB (CK-2) C-Reactive Protein NT-Pro-B Natriuret Pep Total Protein Albumin Arterial Blood Glucose Urine WBC (Auto) Chest x-ray: other (none today) Allied health notes reviewed: nursing
[2020-01-30] MEDS: TAMSULOSIN 0.4 MG CAP PO SCH (22:40)
[2020-01-31] MEDS: QUEtiapine 100 MG TAB PO SCH ×3 (00:41→21:29)
[2020-01-31] MEDS: POLYETHYLENE GLYCOL 3350 17 GM POWDER PO SCH ×2 (00:41→21:34)
[2020-01-31] MEDS: METOPROLOL TARTRATE 25 MG TAB PO SCH ×4 (01:15→18:29)
[2020-01-31] MEDS: ACETAMINOPHEN 325 MG/10.15 ML ORAL LIQD UNIT DOSE FEEDTUBE PRN (01:18)
[2020-01-31] MEDS: FUROSEMIDE 40 MG/4 ML INJ IV SCH (05:26)
[2020-01-31] MEDS: NITROGLYCERIN 0.4 MG PATCH 24HR TD SCH (05:27)
[2020-01-31] MEDS: GLYCOPYRROLATE 2 MG TAB PO SCH ×3 (07:47→20:16)
[2020-01-31] MEDS: MIDODRINE 5 MG TAB PO SCH ×3 (07:47→16:39)
[2020-01-31] MEDS: APIXABAN 5 MG TAB PO SCH ×2 (09:49→21:30)
[2020-01-31] MEDS: AMIODARONE 200 MG TAB PO SCH ×2 (09:49→21:30)
[2020-01-31] MEDS: CLOPIDOGREL 75 MG TAB PO SCH (09:49)
[2020-01-31] MEDS: FAMOTIDINE 20 MG TAB PO SCH ×2 (09:49→21:30)
[2020-01-31] MEDS: DOCUSATE SODIUM 100 MG/10 ML ORAL LIQD FEEDTUBE SCH ×2 (09:50→21:29)
[2020-01-31] MEDS: MORPHINE 2 MG/1 ML INJ IV PRN (09:58)
[2020-01-31] MEDS: METOPROLOL TARTRATE 5 MG/5 ML INJ IV PRN (11:05)
[2020-01-31] MEDS: ONDANSETRON 4 MG/2 ML INJ IV PRN ×2 (11:05→20:16)
--- NOTE | 2020-01-31 12:58 | Progress Note ---
Assessment and Plan CAD LHC done 01/22/20 revealed widely patent previous LAD stent and mild nonobstructive atherosclerosis of the mid right coronary artery. Otherwise the rest of the coronary system was without significant atherosclerosis. LVEF 40 to 45%. There was some hypokinesis of the basal inferior wall suggestive of previous or recent infarct. Atrial fibrillation, paroxysmal on amiodarone and metoprolol Ischemic Cardiomyopathy re-echo this presentation reports an LVEF 40-45%. Hx of CAD Multifocal pneumonia negative COVID-19 test x 3 Chronic Respiratory failure s/p trach History of COPD Acute PE/DVT -on Eliquis Anemia Partial SBO vs ileus Recommend: Continue current therapy. Subjective Date of service: 01/31/20 Principal diagnosis: Ac hypoxemic resp failure; Pneumonia; PUI COVID-19; CHF; COPD; HTN Interval history: Remains intubated. No acute events. Objective Vital Signs Temp Pulse Pulse Resp BP Pulse Ox Pulse Ox 01/31/20 12:18 120 H 120/81 01/31/20 11:10 119 H 22 109/74 98 01/31/20 11:05 126 H 123/76 01/31/20 10:00 116 H 29 H 98/80 95 01/31/20 09:00 112 H 22 108/77 100 01/31/20 08:30 106 H 24 100/72 100 100 01/31/20 08:00 98.3 F 114 H 20 100/62 100 01/31/20 07:46 112 H 100/62 01/31/20 07:00 102 H 18 105/66 97 01/31/20 06:00 107 H 20 123/72 95 01/31/20 05:27 125 H 121/74 01/31/20 05:08 123 H 18 121/74 95 01/31/20 05:00 102 H 17 121/74 90 01/31/20 04:00 98.1 F 98 H 101 H 21 97/77 100 01/31/20 03:00 131 H 24 99/52 96 01/31/20 02:00 126 H 17 112/73 96 01/31/20 01:15 101 H 104/75 01/31/20 01:00 101 H 31 H 104/75 95 01/31/20 00:00 98.5 F 99 H 119 H 29 H 115/72 98 97 01/30/20 23:55 99 H 26 H 108/83 97 01/30/20 23:00 98 H 28 H 109/78 95 01/30/20 22:00 98 H 31 H 103/75 97 01/30/20 21:21 99 H 26 H 117/81 96 01/30/20 21:00 99 H 21 117/81 98 01/30/20 20:00 98.5 F 101 H 101 H 20 110/81 99 01/30/20 19:00 105 H 22 108/90 97 01/30/20 18:15 105 H 113/81 01/30/20 18:00 103 H 29 H 113/81 98 01/30/20 17:00 103 H 30 H 118/90 97 01/30/20 16:03 122 H 104/75 01/30/20 16:00 98.1 F 123 H 119 H 24 104/75 98 01/30/20 15:00 121 H 27 H 104/78 94 99 01/30/20 14:00 120 H 21 103/58 95 01/30/20 13:00 116 H 22 105/76 95 - Physical Examination General: Other (awake, s/p trach) HEENT: Positive: PERRL Neck: Positive: neck supple. Negative: JVD/HJR Cardiac: Positive: Regular Rate, Regular Rhythm Lungs: Positive: Rhonchi Neuro: Positive: Weakness Abdomen: Positive: Soft Skin: Positive: Clear Extremities: Absent: edema - Allied health notes Allied health notes reviewed: nursing
[2020-01-31] MEDS: LORazepam 2 MG/ML VIAL IV PRN (14:22)
--- NOTE | 2020-01-31 15:19 | Progress Note ---
Assessment and Plan -Ischemic cardiomyopathy Cardiology is following, status post cardiac catheterization on 01/22/2020; Coronary artery disease status post PCI and stent to the LAD Continue current cardiac medications --Acute on chronic hypoxemic respiratory failure; Patient has tracheostomy on vent Continue nebulizers, , trach care Wean off ventilator as tolerated Pulmonary critical following --Acute exacerbation of COPD; Patient is currently on ventilatory support Continue nebulizers --Left lower lobe PE; Continue Eliquis, ventilatory support --Acute right lower extremity DVT; Patient is on Eliquis --Bilateral multifocal pneumonia/community-acquired Completed antibiotics, improved --Severe sepsis/bilateral pneumonia: Completed antibiotics COVID-19 test; 11/24/2019; negative 11/26/2019; negative 12/29/2019: Negative --Paroxysmal atrial fibrillation; Now rate controlled, Stable on amiodarone and Eliquis --Acute on chronic combined systolic and diastolic congestive heart failure Ischemic cardiomyopathy left ventricular ejection fraction 40 to 45% --H/o CAD [[facility] 12/2018 in-stent restenosis] Patient is stable on current cardiac medications Patient is a 64-year-old male with known history of hypertension, COPD, history of coronary artery disease, CHF with ejection fraction of 20 to 25% in August 2018 presenting to the emergency room via EMS complaining of shortness of breath. Patient was found to be hypoxic and in respiratory distress. Patient was placed on CPAP in route to the hospital. Patient remained hypoxic on CPAP BiPAP ,sub sequently was intubated. Work-up in the emergency room including chest x-ray reveals bilateral pneumonia. He had an elevated white count of 14 and also had an elevated BNP. sputum cultures positive for Pseudomonas, ID treated with cefepime and Vanco. His hospital course became complicated with acute PE, DVT, paroxysmal atrial fib - placed on chronic anticoagulation. Patient was difficult to wean off, status post trach and PEG, remains on mechanical ventilation with trach tube. He then developed partial small bowel obstruction valuated by general surgeon symptom improved with medical Mx, patient was briefly weaned off ventilatory support however, was in respiratory failure requiring full ventilatory support. Cardiac catheterization on 01/22/2020. No new issues overnight. --Hypertensive emergency; present on admission Reasonable blood pressures, continue current antihypertensives As needed medications Most stents were patent. --History of alcohol abuse/alcohol withdrawal; Was on CIWA protocol, now stable --Oropharyngeal dysphagia; status post PEG placement Continue PEG feeds per protocol --History of partial small bowel obstruction; resolved Surgery evaluated. At present not a surgical candidate. --Obesity; BMI 34.7 Patient needs weight reduction when medically stable --Severe protein calorie malnutrition/hypoalbuminemia Nutrition supplements, dietitian following, PEG feeds --DVT prophylaxis;Eliquis --Full CODE STATUS 01/05; Pt stable. NGT output 650cc over 24 hours, bilious. No f/c, WBC within normal limits. cont NG suction and cont to hold TF 01/06: Abs series - mild improvement in small bowel distension in mid abdomen, normal gas/stool pattern in colon. NGT in duodenum. Continue to hold tube feeding, maintain NG tube with low intermittent suction. Patient's was updated by phone. Continue to provide supportive care and monitor clinically. 01/07: +BMs today and NGT/PEG output appears more gastric today. Plan to clamp NGT, if tolerates start TF from tomorrow. cont supportive care. 01/08; Gastric output decreased over last 24 hours. NGT has been clamped x 24 hours. plan to dc NGT and to start TTF via PEG - vital HF @10cc/hr 01/09: clinically stable, tolerating TF. monitor BMP, wean off from vent as tolerated clinically stable, on TF. wean off vent as tolerated 01/11: wean off from vent, cont to monitor, on TF 01/12: wean off from vent, cont to monitor, on TF. need placement - unfunded 01/13; remains on ventilatory support, unable to wean, DC planning possible LTAC, unfunded 01/14; patient of ventilatory support, T-piece tracheostomy on oxygen, LTAC placement per case management 01/16; tracheostomy, patient on full ventilatory support, wean off vent support as tolerated, pending LTAC placement, social financial issues 01/17; awaiting LTAC placement, insurance and financial issues 01/18; patient tracheostomy remains on ventilatory support 01/19; wean off ventilator as tolerated 01/20; remains on ventilatory support, patient complains of intermittent chest pain, cardiology recommend left heart catheterization tomorrow 01/22/2020. Patient for left heart catheterization per cardiology. Patient remains on AC mode ventilation rate 12, tidal volume 450, FiO2 30% and PEEP of 6. Continue tracheostomy care, airway management and secretion control. 01/23/2020. Cardiac catheterization completed yesterday revealed widely patent previous LAD stent with mild nonobstructive atherosclerosis of the right mid coronary artery and rest of the coronary system was without significant atherosclerosis. The left ventricle ejection fraction was mildly impaired at 40 to 45%. There was some hypokinesis of the basal inferior wall suggestive of previous or recent infarct. Continue GDMT for coronary artery disease including beta blockers, topical nitrates, statin and Plavix. Continue Eliquis for paroxysmal atrial fibrillation and PE. Continue diuresis with Lasix and follow electrolytes closely. Continue Robinul and scopolamine for secretion control and daily SBT per pulmonary. Also, continue bronchodilators and routine trach care/airway management. T-piece trials per pulmonary as tolerated. 01/24/2020. Recent cardiac catheterization has documented widely patent left anterior descending artery stent with minimal nonobstructive diffuse coronary artery disease in the rest of the coronary arteries. Evidence of ischemic c ardiomyopathy with inferior wall hypokinesis. Continue with guideline directed medical therapy. Continue Robinul and scopolamine for secretion control and daily SBT per pulmonary. Continue bronchodilators and routine trach care/airway management. T-piece trials per pulmonary as tolerated. 01/25/2020. Continue with guideline directed medical therapy for systolic heart failure. Cardiac catheterization revealed evidence of ischemic cardiomyopathy with inferior wall hypokinesis (EF 40-45%). Patient currently on T-piece with oxygen 10 L/min FiO2 40%. Continue Robinul and scopolamine for secretion control. Continue bronchodilators and routine trach care/airway management. 01/26/2020;Continue with guideline directed medical therapy for systolic heart failure. Cardiac catheterization revealed evidence of ischemic cardiomyopathy with inferior wall hypokinesis (EF 40-45%). Patient currently on T-piece with oxygen 10 L/min FiO2 40%. Continue Robinul and scopolamine for secretion cont rol. Continue bronchodilators and routine trach care/airway management. 01/27/2020Continue with guideline directed medical therapy for systolic heart failure. Cardiac catheterization revealed evidence of ischemic cardiomyopathy with inferior wall hypokinesis (EF 40-45%). Patient currently on T-piece with oxygen 10 L/min FiO2 40%. Continue Robinul and scopolamine for secretion control. Continue bronchodilators and routine trach care/airway management. 01/28/2020Continue with guideline directed medical therapy for systolic heart failure. Cardiac catheterization revealed evidence of ischemic cardiomyopathy with inferior wall hypokinesis (EF 40-45%). Patient currently on T-piece with oxygen 10 L/min FiO2 40%. Continue Robinul and scopolamine for secretion control. Continue bronchodilators and routine trach care/airway management. 01/29/2020 Continue with guideline directed medical therapy for systolic heart failure. Cardiac catheterization revealed evidence of ischemic cardiomyopathy with inferior wall hypokinesis (EF 40-45%). Patient currently on T-piece with oxygen 10 L/min FiO2 40%. Continue Robinul and scopolamine for secretion control. Continue bronchodilators and routine trach care/airway management. 01/30/2020 Continue with guideline directed medical therapy for systolic heart failure. Cardiac catheterization revealed evidence of ischemic cardiomyopathy with inferior wall hypokinesis (EF 40-45%). Patient currently on T-piece with oxygen 10 L/min FiO2 40%. Continue Robinul and scopolamine for secretion control. Continue bronchodilators and routine trach care/airway management. Patient has recurrent A. fib and currently on amiodarone, continue beta-hebert, and Eliquis. Patient is on IV diuresis January 31, 2020. Patient resting comfortably. Catheterization with inferior wall hypokinesis ejection fraction 40 to 45%. Was unable to wean tracheostomy at this time. Failed T-piece trial initially. Secretions improved with addition of Robinul. Pulmonology for trach care and airway management and continue to wean. Atrial fibrillation rate well controlled at 81. Currently on amiodarone beta- hebert and anticoagulation with Eliquis. CHF continue present diuresis. Subjective Date of service: 01/31/20 Principal diagnosis: Ac hypoxemic resp failure; Pneumonia; PUI COVID-19; CHF; COPD; HTN Interval history: Patient resting comfortably in bed. Tracheostomy. Current T-piece trial. No new events overnight. Objective - Constitutional Vitals: Vital Signs - 12hr 01/31/20 01/31/20 01/31/20 04:00 05:00 05:08 Temperature 98.1 F Pulse Rate 98 H 102 H 123 H Pulse Rate [ 101 H From Monitor] Respiratory 21 17 18 Rate Blood Pressure 97/77 121/74 121/74 O2 Sat by Pulse 100 90 95 Oximetry O2 Sat by Pulse Oximetry [ Assessment] 01/31/20 01/31/20 01/31/20 05:27 06:00 07:00 Temperature Pulse Rate 125 H 107 H 102 H Pulse Rate [ From Monitor] Respiratory 20 18 Rate Blood Pressure 121/74 123/72 105/66 O2 Sat by Pulse 95 97 Oximetry O2 Sat by Pulse Oximetry [ Assessment] 01/31/20 01/31/20 01/31/20 07:46 08:00 08:30 Temperature 98.3 F Pulse Rate 112 H 114 H 106 H Pulse Rate [ From Monitor] Respiratory 20 24 Rate Blood Pressure 100/62 100/62 100/72 O2 Sat by Pulse 100 100 Oximetry O2 Sat by Pulse 100 Oximetry [ Assessment] 01/31/20 01/31/20 01/31/20 09:00 10:00 11:00 Temperature Pulse Rate 112 H 116 H 115 H Pulse Rate [ From Monitor] Respiratory 22 29 H 26 H Rate Blood Pressure 108/77 98/80 128/96 O2 Sat by Pulse 100 95 96 Oximetry O2 Sat by Pulse Oximetry [ Assessment] 01/31/20 01/31/20 01/31/20 11:05 11:10 12:00 Temperature 98.5 F Pulse Rate 126 H 119 H 111 H Pulse Rate [ 113 H From Monitor] Respiratory 22 20 Rate Blood Pressure 123/76 109/74 114/81 O2 Sat by Pulse 98 99 Oximetry O2 Sat by Pulse Oximetry [ Assessment] 01/31/20 01/31/20 01/31/20 12:18 13:00 13:10 Temperature Pulse Rate 120 H 119 H 108 H Pulse Rate [ From Monitor] Respiratory 22 22 Rate Blood Pressure 120/81 112/69 108/73 O2 Sat by Pulse 100 100 Oximetry O2 Sat by Pulse Oximetry [ Assessment] General appearance: Present: no acute distress, other (Intubated) - Respiratory Respiratory: bilateral: diminished, rhonchi - Cardiovascular Rhythm: regular Extremities: No edema, normal color, Full ROM - Gastrointestinal General gastrointestinal: Present: soft, non-tender, non-distended, hypoactive bowel sounds - Musculoskeletal Musculoskeletal: 1, strength equal bilaterally - Neurologic Neurologic: focal deficits - Psychiatric Psychiatric: other (Remains intubated encephalopathic.) - Labs CBC & Chem 7: 01/28/20 04:37 01/29/20 04:55 Labs: Abnormal lab results 01/30/20 01/30/20 01/30/20 Range/Units 12:27 17:42 23:28 POC Glucose 151 H 144 H 164 H (70-105) mg/dL 01/31/20 Range/Units 05:51 POC Glucose 131 H (70-105) mg/dL - Imaging and cardiology Chest x-ray: report reviewed, image reviewed CT scan - abdomen: report reviewed HEART Score - HEART Score Troponin: Troponin T < 0.010 ng/mL (0.00-0.029) 01/19/20 01:35
[2020-01-31] MEDS ORDERED: SODIUM CHLORIDE 0.9% 250ML 250 ML IV ONE (16:03)
--- NOTE | 2020-01-31 16:16 | Progress Note ---
Assessment and Plan Acute hypoxemic respiratory failure Bilateral pneumonia, community acquired. Acute LLL branch P.E. Acute DVT Person under investigation for COVID-19 infection. Acute congestive heart failure exacerbation. History of cerebrovascular accident. Acute chronic obstructive pulmonary disease exacerbation. Hypertension and hypertensive urgency at presentation. History of arthritis. Leukocytosis. Lactic acidosis. Oropharyngeal dysphagia (Suspecty IVVD at this point) - get Urine lytes (calculate FENA) - get BMP and address - repeat Mg & PO4 levels in am and address - get 12 lead EKG - IVNS 250 mls boluis - hold lasix overnight and resume at 20 mg p.o. daily in am - continue care as below otherwise; - Midodrine for BP support during diuresis - target even to slightly negative fluid balance - continue daytime T-piece trials (switch to PSV if fails) and advance RTC as tolerated - continue mucomyst nebs re: secretions - continue full anticoagulation with Apixaban - continue daily SAT's and SBT assessment as tolerated - continue seroquel for anxiolysis / delirium - COVID isolation per facility protocol - prn diuresis while following electrolytes / I's & O's - continue to wean oxygen for O2 sat's > 92% - continue bronchodilators with routine trach care and pulmonary hygiene per RT - continue Robinul & Scopolamine for secretion control - VAP bundle addressed (Aspiration precautions, HOB >40) - continue to wean per pulmonary driven protocols - sedation target is RASS 0 to -1 - continue prn analgesia per CPOT score - follow clinically re: fever curves / trend WBC - Avoid delirium (no benzodiazepines if they can be avoided) - Maintain sleep-wake cycle - enteral nutrition at goal rate as tolerated - continue accucheck's with glycemic control per SSI for target blood glucose goal of 140-180 mg/dL while critically ill; Avoid hypoglycemia - for VTE he is on IV Heparin - continue stress ulcer prophylaxis with Famotidine - continue mobility protocols for pressure ulcer prophylaxis - continue fall precautions - continue wound care management per RN / WCT - Supportive transfusions to keep HgB>7g/dL - CXR's and ABG's prn - Continue to monitor neurologic function - Continue chronic home medications - Continue all supportive care ........ re-evaluate in am & prn CONDITION: CRITICAL PROGNOSIS: GUARDED CODE STATUS: FULL CODE The high probability of a clinically significant, sudden or life threatening deterioration of the [Respiratory, cardiovascular & neurological] system(s) required my full and direct attention, intervention and personal management. The aggregate critical care time was [37] minutes without overlap. Time includes spent on [x] Data Review and interpretation [x] Patient assessment and monitoring of vital signs [x] Documentation [x] Medication orders and management Subjective Date of service: 01/31/20 Principal diagnosis: Ac hypoxemic resp failure; Pneumonia; PUI COVID-19; CHF; COPD; HTN Interval history: Patient is seen today for: Acute hypoxemic respiratory failure; Adan. Pneumonia (CAP); PUI COVID-19 infection; AE-CHF; AE-COPD; H/O CVA; HTN Seen and examined at bedside; 24 hour events reviewed; nursing and respiratory care staff consulted; no adverse overnight events reported to me; resting peacefully in bed; has been essentially in A-fib with RVR most of this morning; BP's holding with midodrine support; making urine but now appears concentrated; he denies acute chest pains or palpitations; on t-piece X 2 hours now so far Objective Vital Signs - 12hr 01/31/20 01/31/20 01/31/20 05:00 05:08 05:27 Temperature Pulse Rate 102 H 123 H 125 H Pulse Rate [ From Monitor] Respiratory 17 18 Rate Blood Pressure 121/74 121/74 121/74 O2 Sat by Pulse 90 95 Oximetry O2 Sat by Pulse Oximetry [ Assessment] 01/31/20 01/31/20 01/31/20 06:00 07:00 07:46 Temperature Pulse Rate 107 H 102 H 112 H Pulse Rate [ From Monitor] Respiratory 20 18 Rate Blood Pressure 123/72 105/66 100/62 O2 Sat by Pulse 95 97 Oximetry O2 Sat by Pulse Oximetry [ Assessment] 01/31/20 01/31/20 01/31/20 08:00 08:30 09:00 Temperature 98.3 F Pulse Rate 114 H 106 H 112 H Pulse Rate [ From Monitor] Respiratory 20 24 22 Rate Blood Pressure 100/62 100/72 108/77 O2 Sat by Pulse 100 100 100 Oximetry O2 Sat by Pulse 100 Oximetry [ Assessment] 01/31/20 01/31/20 01/31/20 10:00 11:00 11:05 Temperature Pulse Rate 116 H 115 H 126 H Pulse Rate [ From Monitor] Respiratory 29 H 26 H Rate Blood Pressure 98/80 128/96 123/76 O2 Sat by Pulse 95 96 Oximetry O2 Sat by Pulse Oximetry [ Assessment] 01/31/20 01/31/20 01/31/20 11:10 12:00 12:18 Temperature 98.5 F Pulse Rate 119 H 111 H 120 H Pulse Rate [ 113 H From Monitor] Respiratory 22 20 Rate Blood Pressure 109/74 114/81 120/81 O2 Sat by Pulse 98 99 Oximetry O2 Sat by Pulse Oximetry [ Assessment] 01/31/20 01/31/20 01/31/20 13:00 13:10 14:00 Temperature Pulse Rate 119 H 108 H 113 H Pulse Rate [ From Monitor] Respiratory 22 22 40 H Rate Blood Pressure 112/69 108/73 113/78 O2 Sat by Pulse 100 100 99 Oximetry O2 Sat by Pulse Oximetry [ Assessment] 01/31/20 01/31/20 15:00 15:53 Temperature Pulse Rate 124 H 124 H Pulse Rate [ From Monitor] Respiratory 26 H 24 Rate Blood Pressure 101/84 101/84 O2 Sat by Pulse 97 98 Oximetry O2 Sat by Pulse 98 Oximetry [ Assessment] Constitutional: appears uncomfortable, other (elelelderly and obese male, normocephalic with mildly increased respiratory effort at rest) Eyes: non-icteric ENT: oropharynx moist, other (+ midline tracheostomy) Neck: supple, no JVD Effort: mildly labored Ascultation: Bilateral: diminished breath sounds, rhonchi Percussion: Bilateral: not dull Cardiovascular: irregular rhythm, other (S1,S2) Gastrointestinal: normoactive bowel sounds, soft, non-tender, non-distended (protuberant), other (protuberant; PEG in place) Integumentary: normal Extremities: no cyanosis, pulses normal, no ischemia or petechiae, edema (bilateral upper ) Neurologic: non-focal exam (moves extremities), pupils equal and round, CN II- XII normal, motor strength normal and (moves all extremities) Psychiatric: mood appropriate, affect normal CBC and BMP: 01/28/20 04:37 01/29/20 04:55 ABG, PT/INR, D-dimer: ABG ABG pH 7.447 pH Units (7.350-7.450) 01/25/20 21:02 POC ABG pCO2 45.6 mmHg (32.0-48.0) 01/12/20 13:58 ABG pCO2 47.0 mm Hg 01/25/20 21:02 POC ABG pO2 76.6 mmHg (83-108) L 01/12/20 13:58 ABG pO2 57.5 mm Hg (80.0-90.0) L 01/25/20 21:02 POC ABG HCO3 31.2 01/12/20 13:58 ABG O2 Saturation 90.3 % (95.0-99.0) L 01/25/20 21:02 PT/INR, D-dimer PT 16.9 Sec. (12.2-14.9) H 01/22/20 09:58 INR 1.34 (0.87-1.13) H 01/22/20 09:58 Abnormal lab findings: Abnormal Labs 11/24/19 11/24/19 11/24/19 02:53 02:53 03:45 WBC 14.3 H RBC Hgb Hct MCHC RDW 17.2 H MCV MCH Lymph % (Auto) [place] % (Auto) [place] # Eos # Lymph # (Auto) [place] # (Auto) Eos # (Auto) Seg Neutrophils % Seg Neuts % (Manual) Baso # (Auto) Lymphocytes % (Manual) Monocytes % (Manual) Eosinophils % (Manual) Basophils % (Manual) Seg Neutrophils # Seg Neutrophils # Man 8.3 H Lymphocytes # (Manual) Monocytes # (Manual) 0.9 H Eosinophils # (Manual) Nucleated RBC % Basophils # (Manual) PT INR APTT Heparin Anti-Xa Level ABG pH 7.313 L POC ABG pO2 ABG pO2 102.8 H ABG HCO3 ABG O2 Saturation ABG Base Excess -2.9 L POC ABG pCO2 ABG Hemoglobin ABG Oxyhemoglobin ABG Glucose Oxyhemoglobin 93.9 L Sodium Potassium Chloride Carbon Dioxide BUN Creatinine Glucose 195 H POC Glucose Lactic Acid Calcium Phosphorus Magnesium AST ALT Lactate Dehydrogenase CK-MB (CK-2) 4.3 H C-Reactive Protein NT-Pro-B Natriuret Pep 1181 H Total Protein Albumin Arterial Blood Glucose Urine WBC (Auto) 11/24/19 11/24/19 11/24/19 04:53 04:53 10:37 WBC RBC Hgb Hct MCHC RDW MCV MCH Lymph % (Auto) [place] % (Auto) [place] # Eos # Lymph # (Auto) [place] # (Auto) Eos # (Auto) Seg Neutrophils % Seg Neuts % (Manual) Baso # (Auto) Lymphocytes % (Manual) Monocytes % (Manual) Eosinophils % (Manual) Basophils % (Manual) Seg Neutrophils # Seg Neutrophils # Man Lymphocytes # (Manual) Monocytes # (Manual) Eosinophils # (Manual) Nucleated RBC % Basophils # (Manual) PT INR APTT Heparin Anti-Xa Level ABG pH POC ABG pO2 ABG pO2 ABG HCO3 ABG O2 Saturation ABG Base Excess POC ABG pCO2 ABG Hemoglobin ABG Oxyhemoglobin ABG Glucose Oxyhemoglobin Sodium Potassium Chloride Carbon Dioxide BUN Creatinine Glucose 162 H POC Glucose Lactic Acid 2.40 H* 2.50 H* Calcium Phosphorus Magnesium AST ALT Lactate Dehydrogenase 240 H CK-MB (CK-2) C-Reactive Protein NT-Pro-B Natriuret Pep Total Protein Albumin Arterial Blood Glucose Urine WBC (Auto) 11/24/19 11/24/19 11/24/19 12:21 14:50 19:54 WBC RBC Hgb Hct MCHC RDW MCV MCH Lymph % (Auto) [place] % (Auto) [place] # Eos # Lymph # (Auto) [place] # (Auto) Eos # (Auto) Seg Neutrophils % Seg Neuts % (Manual) Baso # (Auto) Lymphocytes % (Manual) Monocytes % (Manual) Eosinophils % (Manual) Basophils % (Manual) Seg Neutrophils # Seg Neutrophils # Man Lymphocytes # (Manual) Monocytes # (Manual) Eosinophils # (Manual) Nucleated RBC % Basophils # (Manual) PT INR APTT Heparin Anti-Xa Level ABG pH POC ABG pO2 ABG pO2 ABG HCO3 ABG O2 Saturation ABG Base Excess POC ABG pCO2 ABG Hemoglobin ABG Oxyhemoglobin ABG Glucose Oxyhemoglobin Sodium Potassium Chloride Carbon Dioxide BUN Creatinine Glucose POC Glucose 145 H 143 H 124 H Lactic Acid Calcium Phosphorus Magnesium AST ALT Lactate Dehydrogenase CK-MB (CK-2) C-Reactive Protein NT-Pro-B Natriuret Pep Total Protein Albumin Arterial Blood Glucose Urine WBC (Auto) 11/25/19 11/25/19 11/25/19 00:18 03:18 05:11 WBC 13.7 H RBC Hgb Hct MCHC RDW 17.1 H MCV MCH Lymph % (Auto) 10.8 L [place] % (Auto) 8.7 H [place] # 1.2 H Eos # Lymph # (Auto) [place] # (Auto) Eos # (Auto) Seg Neutrophils % 80.2 H Seg Neuts % (Manual) Baso # (Auto) Lymphocytes % (Manual) Monocytes % (Manual) Eosinophils % (Manual) Basophils % (Manual) Seg Neutrophils # 11.0 H Seg Neutrophils # Man Lymphocytes # (Manual) Monocytes # (Manual) Eosinophils # (Manual) Nucleated RBC % Basophils # (Manual) PT INR APTT Heparin Anti-Xa Level ABG pH 7.333 L POC ABG pO2 ABG pO2 61.2 L ABG HCO3 ABG O2 Saturation 90.2 L ABG Base Excess POC ABG pCO2 ABG Hemoglobin 13.7 L ABG Oxyhemoglobin ABG Glucose Oxyhemoglobin 88.2 L Sodium Potassium Chloride Carbon Dioxide BUN Creatinine Glucose POC Glucose 109 H Lactic Acid Calcium Phosphorus Magnesium AST ALT Lactate Dehydrogenase CK-MB (CK-2) C-Reactive Protein NT-Pro-B Natriuret Pep Total Protein Albumin Arterial Blood Glucose Urine WBC (Auto) 11/25/19 11/25/19 11/26/19 05:11 11:40 03:12 WBC RBC Hgb Hct MCHC RDW MCV MCH Lymph % (Auto) [place] % (Auto) [place] # Eos # Lymph # (Auto) [place] # (Auto) Eos # (Auto) Seg Neutrophils % Seg Neuts % (Manual) Baso # (Auto) Lymphocytes % (Manual) Monocytes % (Manual) Eosinophils % (Manual) Basophils % (Manual) Seg Neutrophils # Seg Neutrophils # Man Lymphocytes # (Manual) Monocytes # (Manual) Eosinophils # (Manual) Nucleated RBC % Basophils # (Manual) PT INR APTT Heparin Anti-Xa Level ABG pH POC ABG pO2 ABG pO2 155.1 H ABG HCO3 27.8 H ABG O2 Saturation ABG Base Excess POC ABG pCO2 ABG Hemoglobin 12.2 L ABG Oxyhemoglobin ABG Glucose Oxyhemoglobin Sodium Potassium Chloride Carbon Dioxide BUN 23 H Creatinine Glucose 110 H POC Glucose 108 H Lactic Acid Calcium Phosphorus Magnesium AST ALT Lactate Dehydrogenase CK-MB (CK-2) C-Reactive Protein NT-Pro-B Natriuret Pep Total Protein Albumin Arterial Blood Glucose Urine WBC (Auto) 11/26/19 11/26/19 11/26/19 06:17 10:43 10:43 WBC 11.4 H RBC Hgb Hct MCHC RDW 17.1 H MCV MCH Lymph % (Auto) [place] % (Auto) [place] # Eos # Lymph # (Auto) [place] # (Auto) Eos # (Auto) Seg Neutrophils % Seg Neuts % (Manual) Baso # (Auto) Lymphocytes % (Manual) Monocytes % (Manual) Eosinophils % (Manual) Basophils % (Manual) Seg Neutrophils # Seg Neutrophils # Man Lymphocytes # (Manual) Monocytes # (Manual) Eosinophils # (Manual) Nucleated RBC % Basophils # (Manual) PT INR APTT Heparin Anti-Xa Level ABG pH POC ABG pO2 ABG pO2 ABG HCO3 ABG O2 Saturation ABG Base Excess POC ABG pCO2 ABG Hemoglobin ABG Oxyhemoglobin ABG Glucose Oxyhemoglobin Sodium Potassium Chloride Carbon Dioxide BUN 29 H Creatinine Glucose POC Glucose 107 H Lactic Acid Calcium Phosphorus Magnesium AST ALT Lactate Dehydrogenase CK-MB (CK-2) C-Reactive Protein NT-Pro-B Natriuret Pep Total Protein Albumin Arterial Blood Glucose Urine WBC (Auto) 11/26/19 11/27/19 11/27/19 17:11 01:53 04:11 WBC RBC Hgb Hct MCHC RDW MCV MCH Lymph % (Auto) [place] % (Auto) [place] # Eos # Lymph # (Auto) [place] # (Auto) Eos # (Auto) Seg Neutrophils % Seg Neuts % (Manual) Baso # (Auto) Lymphocytes % (Manual) Monocytes % (Manual) Eosinophils % (Manual) Basophils % (Manual) Seg Neutrophils # Seg Neutrophils # Man Lymphocytes # (Manual) Monocytes # (Manual) Eosinophils # (Manual) Nucleated RBC % Basophils # (Manual) PT INR APTT Heparin Anti-Xa Level ABG pH POC ABG pO2 ABG pO2 ABG HCO3 29.2 H ABG O2 Saturation ABG Base Excess 3.4 H POC ABG pCO2 ABG Hemoglobin 13.3 L ABG Oxyhemoglobin ABG Glucose Oxyhemoglobin 94.5 L Sodium Potassium Chloride Carbon Dioxide BUN Creatinine Glucose POC Glucose 113 H 108 H Lactic Acid Calcium Phosphorus Magnesium AST ALT Lactate Dehydrogenase CK-MB (CK-2) C-Reactive Protein NT-Pro-B Natriuret Pep Total Protein Albumin Arterial Blood Glucose Urine WBC (Auto) 11/27/19 11/28/19 11/28/19 05:27 05:00 05:25 WBC RBC Hgb Hct MCHC RDW MCV MCH Lymph % (Auto) [place] % (Auto) [place] # Eos # Lymph # (Auto) [place] # (Auto) Eos # (Auto) Seg Neutrophils % Seg Neuts % (Manual) Baso # (Auto) Lymphocytes % (Manual) Monocytes % (Manual) Eosinophils % (Manual) Basophils % (Manual) Seg Neutrophils # Seg Neutrophils # Man Lymphocytes # (Manual) Monocytes # (Manual) Eosinophils # (Manual) Nucleated RBC % Basophils # (Manual) PT INR APTT Heparin Anti-Xa Level ABG pH POC ABG pO2 68.1 L ABG pO2 ABG HCO3 ABG O2 Saturation ABG Base Excess POC ABG pCO2 ABG Hemoglobin ABG Oxyhemoglobin 91.2 L ABG Glucose Oxyhemoglobin Sodium Potassium Chloride Carbon Dioxide BUN Creatinine Glucose POC Glucose 111 H 110 H Lactic Acid Calcium Phosphorus Magnesium AST ALT Lactate Dehydrogenase CK-MB (CK-2) C-Reactive Protein NT-Pro-B Natriuret Pep Total Protein Albumin Arterial Blood Glucose Urine WBC (Auto) 11/28/19 11/28/19 11/28/19 12:08 13:47 13:47 WBC 11.3 H RBC Hgb Hct MCHC RDW 16.1 H MCV MCH Lymph % (Auto) [place] % (Auto) 9.9 H [place] # 1.1 H Eos # Lymph # (Auto) [place] # (Auto) Eos # (Auto) Seg Neutrophils % 71.4 H Seg Neuts % (Manual) Baso # (Auto) Lymphocytes % (Manual) Monocytes % (Manual) Eosinophils % (Manual) Basophils % (Manual) Seg Neutrophils # 8.1 H Seg Neutrophils # Man Lymphocytes # (Manual) Monocytes # (Manual) Eosinophils # (Manual) Nucleated RBC % Basophils # (Manual) PT INR APTT Heparin Anti-Xa Level ABG pH POC ABG pO2 ABG pO2 ABG HCO3 ABG O2 Saturation ABG Base Excess POC ABG pCO2 ABG Hemoglobin ABG Oxyhemoglobin ABG Glucose Oxyhemoglobin Sodium Potassium Chloride Carbon Dioxide BUN 23 H Creatinine Glucose 123 H POC Glucose 112 H Lactic Acid Calcium Phosphorus Magnesium AST ALT Lactate Dehydrogenase CK-MB (CK-2) C-Reactive Protein NT-Pro-B Natriuret Pep Total Protein Albumin 3.7 L Arterial Blood Glucose Urine WBC (Auto) 11/28/19 11/29/19 11/29/19 17:26 03:55 17:04 WBC RBC Hgb Hct MCHC RDW MCV MCH Lymph % (Auto) [place] % (Auto) [place] # Eos # Lymph # (Auto) [place] # (Auto) Eos # (Auto) Seg Neutrophils % Seg Neuts % (Manual) Baso # (Auto) Lymphocytes % (Manual) Monocytes % (Manual) Eosinophils % (Manual) Basophils % (Manual) Seg Neutrophils # Seg Neutrophils # Man Lymphocytes # (Manual) Monocytes # (Manual) Eosinophils # (Manual) Nucleated RBC % Basophils # (Manual) PT INR APTT Heparin Anti-Xa Level ABG pH POC ABG pO2 ABG pO2 65.7 L ABG HCO3 28.3 H ABG O2 Saturation 93.9 L ABG Base Excess 3.6 H POC ABG pCO2 ABG Hemoglobin 13.3 L ABG Oxyhemoglobin ABG Glucose Oxyhemoglobin 91.5 L Sodium Potassium Chloride Carbon Dioxide BUN Creatinine Glucose POC Glucose 123 H 119 H Lactic Acid Calcium Phosphorus Magnesium AST ALT Lactate Dehydrogenase CK-MB (CK-2) C-Reactive Protein NT-Pro-B Natriuret Pep Total Protein Albumin Arterial Blood Glucose Urine WBC (Auto) 11/30/19 11/30/19 11/30/19 04:17 04:17 04:56 WBC 13.4 H RBC Hgb Hct MCHC RDW 15.6 H MCV MCH Lymph % (Auto) [place] % (Auto) [place] # Eos # Lymph # (Auto) [place] # (Auto) Eos # (Auto) Seg Neutrophils % Seg Neuts % (Manual) Baso # (Auto) Lymphocytes % (Manual) Monocytes % (Manual) Eosinophils % (Manual) Basophils % (Manual) Seg Neutrophils # Seg Neutrophils # Man Lymphocytes # (Manual) Monocytes # (Manual) Eosinophils # (Manual) Nucleated RBC % Basophils # (Manual) PT INR APTT Heparin Anti-Xa Level ABG pH POC ABG pO2 ABG pO2 56.3 L ABG HCO3 29.3 H ABG O2 Saturation 91.5 L ABG Base Excess 4.7 H POC ABG pCO2 ABG Hemoglobin 12.1 L ABG Oxyhemoglobin ABG Glucose Oxyhemoglobin 89.2 L Sodium 147 H Potassium Chloride Carbon Dioxide BUN 30 H Creatinine Glucose 124 H POC Glucose Lactic Acid Calcium Phosphorus Magnesium AST ALT Lactate Dehydrogenase CK-MB (CK-2) C-Reactive Protein NT-Pro-B Natriuret Pep Total Protein Albumin 3.8 L Arterial Blood Glucose Urine WBC (Auto) 11/30/19 11/30/19 11/30/19 05:51 11:54 18:17 WBC RBC Hgb Hct MCHC RDW MCV MCH Lymph % (Auto) [place] % (Auto) [place] # Eos # Lymph # (Auto) [place] # (Auto) Eos # (Auto) Seg Neutrophils % Seg Neuts % (Manual) Baso # (Auto) Lymphocytes % (Manual) Monocytes % (Manual) Eosinophils % (Manual) Basophils % (Manual) Seg Neutrophils # Seg Neutrophils # Man Lymphocytes # (Manual) Monocytes # (Manual) Eosinophils # (Manual) Nucleated RBC % Basophils # (Manual) PT INR APTT Heparin Anti-Xa Level ABG pH POC ABG pO2 ABG pO2 ABG HCO3 ABG O2 Saturation ABG Base Excess POC ABG pCO2 ABG Hemoglobin ABG Oxyhemoglobin ABG Glucose Oxyhemoglobin Sodium Potassium Chloride Carbon Dioxide BUN Creatinine Glucose POC Glucose 127 H 115 H 143 H Lactic Acid Calcium Phosphorus Magnesium AST ALT Lactate Dehydrogenase CK-MB (CK-2) C-Reactive Protein NT-Pro-B Natriuret Pep Total Protein Albumin Arterial Blood Glucose Urine WBC (Auto) 12/01/19 12/01/19 12/01/19 01:18 05:22 12:16 WBC RBC Hgb Hct MCHC RDW MCV MCH Lymph % (Auto) [place] % (Auto) [place] # Eos # Lymph # (Auto) [place] # (Auto) Eos # (Auto) Seg Neutrophils % Seg Neuts % (Manual) Baso # (Auto) Lymphocytes % (Manual) Monocytes % (Manual) Eosinophils % (Manual) Basophils % (Manual) Seg Neutrophils # Seg Neutrophils # Man Lymphocytes # (Manual) Monocytes # (Manual) Eosinophils # (Manual) Nucleated RBC % Basophils # (Manual) PT INR APTT Heparin Anti-Xa Level ABG pH POC ABG pO2 ABG pO2 ABG HCO3 ABG O2 Saturation ABG Base Excess POC ABG pCO2 ABG Hemoglobin ABG Oxyhemoglobin ABG Glucose Oxyhemoglobin Sodium Potassium 3.5 L Chloride 107.8 H Carbon Dioxide BUN 37 H Creatinine Glucose 157 H POC Glucose 118 H 148 H Lactic Acid Calcium 8.2 L D Phosphorus Magnesium AST 48 H ALT 60 H Lactate Dehydrogenase 194 H CK-MB (CK-2) C-Reactive Protein 8.50 H NT-Pro-B Natriuret Pep Total Protein 5.5 L Albumin 2.8 L Arterial Blood Glucose Urine WBC (Auto) 12/01/19 12/02/1920 18:04 00:05 05:16 WBC 11.4 H RBC Hgb Hct MCHC RDW 15.9 H MCV MCH Lymph % (Auto) [place] % (Auto) 9.9 H [place] # 1.1 H Eos # Lymph # (Auto) [place] # (Auto) Eos # (Auto) Seg Neutrophils % 70.3 H Seg Neuts % (Manual) Baso # (Auto) Lymphocytes % (Manual) Monocytes % (Manual) Eosinophils % (Manual) Basophils % (Manual) Seg Neutrophils # 8.0 H Seg Neutrophils # Man Lymphocytes # (Manual) Monocytes # (Manual) Eosinophils # (Manual) Nucleated RBC % Basophils # (Manual) PT INR APTT Heparin Anti-Xa Level ABG pH POC ABG pO2 ABG pO2 ABG HCO3 ABG O2 Saturation ABG Base Excess POC ABG pCO2 ABG Hemoglobin ABG Oxyhemoglobin ABG Glucose Oxyhemoglobin Sodium Potassium Chloride Carbon Dioxide BUN Creatinine Glucose POC Glucose 143 H 107 H Lactic Acid Calcium Phosphorus Magnesium AST ALT Lactate Dehydrogenase CK-MB (CK-2) C-Reactive Protein NT-Pro-B Natriuret Pep Total Protein Albumin Arterial Blood Glucose Urine WBC (Auto) 12/02/19 12/02/19 12/02/19 05:16 06:03 11:52 WBC RBC Hgb Hct MCHC RDW MCV MCH Lymph % (Auto) [place] % (Auto) [place] # Eos # Lymph # (Auto) [place] # (Auto) Eos # (Auto) Seg Neutrophils % Seg Neuts % (Manual) Baso # (Auto) Lymphocytes % (Manual) Monocytes % (Manual) Eosinophils % (Manual) Basophils % (Manual) Seg Neutrophils # Seg Neutrophils # Man Lymphocytes # (Manual) Monocytes # (Manual) Eosinophils # (Manual) Nucleated RBC % Basophils # (Manual) PT INR APTT Heparin Anti-Xa Level ABG pH POC ABG pO2 ABG pO2 ABG HCO3 ABG O2 Saturation ABG Base Excess POC ABG pCO2 ABG Hemoglobin ABG Oxyhemoglobin ABG Glucose Oxyhemoglobin Sodium 146 H Potassium Chloride Carbon Dioxide BUN 28 H Creatinine Glucose 123 H POC Glucose 110 H 152 H Lactic Acid Calcium Phosphorus Magnesium AST ALT Lactate Dehydrogenase CK-MB (CK-2) C-Reactive Protein NT-Pro-B Natriuret Pep Total Protein Albumin Arterial Blood Glucose Urine WBC (Auto) 12/02/19 12/02/19 12/02/19 12:58 17:58 23:36 WBC RBC Hgb Hct MCHC RDW MCV MCH Lymph % (Auto) [place] % (Auto) [place] # Eos # Lymph # (Auto) [place] # (Auto) Eos # (Auto) Seg Neutrophils % Seg Neuts % (Manual) Baso # (Auto) Lymphocytes % (Manual) Monocytes % (Manual) Eosinophils % (Manual) Basophils % (Manual) Seg Neutrophils # Seg Neutrophils # Man Lymphocytes # (Manual) Monocytes # (Manual) Eosinophils # (Manual) Nucleated RBC % Basophils # (Manual) PT INR APTT Heparin Anti-Xa Level ABG pH POC ABG pO2 78.1 L ABG pO2 ABG HCO3 ABG O2 Saturation ABG Base Excess POC ABG pCO2 ABG Hemoglobin ABG Oxyhemoglobin ABG Glucose Oxyhemoglobin Sodium Potassium Chloride Carbon Dioxide BUN Creatinine Glucose POC Glucose 120 H 123 H Lactic Acid Calcium Phosphorus Magnesium AST ALT Lactate Dehydrogenase CK-MB (CK-2) C-Reactive Protein NT-Pro-B Natriuret Pep Total Protein Albumin Arterial Blood Glucose Urine WBC (Auto) 12/03/19 12/03/19 12/03/19 06:03 06:14 11:46 WBC RBC Hgb Hct MCHC RDW MCV MCH Lymph % (Auto) [place] % (Auto) [place] # Eos # Lymph # (Auto) [place] # (Auto) Eos # (Auto) Seg Neutrophils % Seg Neuts % (Manual) Baso # (Auto) Lymphocytes % (Manual) Monocytes % (Manual) Eosinophils % (Manual) Basophils % (Manual) Seg Neutrophils # Seg Neutrophils # Man Lymphocytes # (Manual) Monocytes # (Manual) Eosinophils # (Manual) Nucleated RBC % Basophils # (Manual) PT INR APTT Heparin Anti-Xa Level ABG pH POC ABG pO2 ABG pO2 ABG HCO3 ABG O2 Saturation ABG Base Excess POC ABG pCO2 ABG Hemoglobin ABG Oxyhemoglobin ABG Glucose Oxyhemoglobin Sodium Potassium Chloride Carbon Dioxide BUN Creatinine Glucose POC Glucose 142 H 130 H Lactic Acid Calcium Phosphorus Magnesium AST ALT Lactate Dehydrogenase CK-MB (CK-2) C-Reactive Protein NT-Pro-B Natriuret Pep Total Protein Albumin Arterial Blood Glucose Urine WBC (Auto) 8.0 H 12/03/19 12/03/19 12/04/19 15:50 17:39 00:04 WBC RBC Hgb Hct MCHC RDW MCV MCH Lymph % (Auto) [place] % (Auto) [place] # Eos # Lymph # (Auto) [place] # (Auto) Eos # (Auto) Seg Neutrophils % Seg Neuts % (Manual) Baso # (Auto) Lymphocytes % (Manual) Monocytes % (Manual) Eosinophils % (Manual) Basophils % (Manual) Seg Neutrophils # Seg Neutrophils # Man Lymphocytes # (Manual) Monocytes # (Manual) Eosinophils # (Manual) Nucleated RBC % Basophils # (Manual) PT INR APTT Heparin Anti-Xa Level ABG pH POC ABG pO2 ABG pO2 ABG HCO3 ABG O2 Saturation ABG Base Excess POC ABG pCO2 ABG Hemoglobin ABG Oxyhemoglobin ABG Glucose Oxyhemoglobin Sodium Potassium Chloride Carbon Dioxide BUN Creatinine Glucose POC Glucose 146 H 133 H Lactic Acid Calcium Phosphorus 2.40 L Magnesium AST ALT Lactate Dehydrogenase CK-MB (CK-2) C-Reactive Protein NT-Pro-B Natriuret Pep Total Protein Albumin Arterial Blood Glucose Urine WBC (Auto) 12/04/19 12/04/19 12/04/19 03:58 03:58 05:22 WBC 12.5 H RBC Hgb 11.2 L Hct 35.2 L MCHC RDW 16.0 H MCV MCH Lymph % (Auto) [place] % (Auto) 9.6 H [place] [place] # 1.2 H Eos # 0.5 H Lymph # (Auto) [place] # (Auto) Eos # (Auto) Seg Neutrophils % Seg Neuts % (Manual) Baso # (Auto) Lymphocytes % (Manual) Monocytes % (Manual) Eosinophils % (Manual) Basophils % (Manual) Seg Neutrophils # 8.6 H Seg Neutrophils # Man Lymphocytes # (Manual) Monocytes # (Manual) Eosinophils # (Manual) Nucleated RBC % Basophils # (Manual) PT INR APTT Heparin Anti-Xa Level ABG pH POC ABG pO2 ABG pO2 ABG HCO3 ABG O2 Saturation ABG Base Excess POC ABG pCO2 ABG Hemoglobin ABG Oxyhemoglobin ABG Glucose Oxyhemoglobin Sodium 146 H Potassium Chloride 108.6 H Carbon Dioxide BUN 30 H Creatinine 0.7 L Glucose 121 H POC Glucose 132 H Lactic Acid Calcium Phosphorus Magnesium AST ALT Lactate Dehydrogenase CK-MB (CK-2) C-Reactive Protein NT-Pro-B Natriuret Pep Total Protein Albumin Arterial Blood Glucose Urine WBC (Auto) 12/04/19 12/04/19 12/05/19 13:26 18:43 00:19 WBC RBC Hgb Hct MCHC RDW MCV MCH Lymph % (Auto) [place] % (Auto) [place] # Eos # Lymph # (Auto) [place] # (Auto) Eos # (Auto) Seg Neutrophils % Seg Neuts % (Manual) Baso # (Auto) Lymphocytes % (Manual) Monocytes % (Manual) Eosinophils % (Manual) Basophils % (Manual) Seg Neutrophils # Seg Neutrophils # Man Lymphocytes # (Manual) Monocytes # (Manual) Eosinophils # (Manual) Nucleated RBC % Basophils # (Manual) PT INR APTT Heparin Anti-Xa Level ABG pH POC ABG pO2 ABG pO2 ABG HCO3 ABG O2 Saturation ABG Base Excess POC ABG pCO2 ABG Hemoglobin ABG Oxyhemoglobin ABG Glucose Oxyhemoglobin Sodium Potassium Chloride Carbon Dioxide BUN Creatinine Glucose POC Glucose 185 H 156 H 150 H Lactic Acid Calcium Phosphorus Magnesium AST ALT Lactate Dehydrogenase CK-MB (CK-2) C-Reactive Protein NT-Pro-B Natriuret Pep Total Protein Albumin Arterial Blood Glucose Urine WBC (Auto) 12/05/19 12/05/19 12/05/19 03:37 03:37 05:14 WBC 16.3 H RBC Hgb 11.4 L Hct MCHC RDW 15.6 H MCV MCH Lymph % (Auto) 9.9 L [place] % (Auto) 9.7 H [place] # 1.6 H Eos # Lymph # (Auto) [place] # (Auto) Eos # (Auto) Seg Neutrophils % 78.0 H Seg Neuts % (Manual) Baso # (Auto) Lymphocytes % (Manual) Monocytes % (Manual) Eosinophils % (Manual) Basophils % (Manual) Seg Neutrophils # 12.7 H Seg Neutrophils # Man Lymphocytes # (Manual) Monocytes # (Manual) Eosinophils # (Manual) Nucleated RBC % Basophils # (Manual) PT INR APTT Heparin Anti-Xa Level ABG pH POC ABG pO2 ABG pO2 ABG HCO3 ABG O2 Saturation ABG Base Excess POC ABG pCO2 ABG Hemoglobin ABG Oxyhemoglobin ABG Glucose Oxyhemoglobin Sodium 146 H Potassium Chloride 107.2 H Carbon Dioxide BUN 27 H Creatinine 0.7 L Glucose 171 H POC Glucose 168 H Lactic Acid Calcium Phosphorus Magnesium AST ALT Lactate Dehydrogenase CK-MB (CK-2) C-Reactive Protein NT-Pro-B Natriuret Pep Total Protein Albumin Arterial Blood Glucose Urine WBC (Auto) 12/05/19 12/05/19 12/05/19 12:31 18:10 23:58 WBC RBC Hgb Hct MCHC RDW MCV MCH Lymph % (Auto) [place] % (Auto) [place] # Eos # Lymph # (Auto) [place] # (Auto) Eos # (Auto) Seg Neutrophils % Seg Neuts % (Manual) Baso # (Auto) Lymphocytes % (Manual) Monocytes % (Manual) Eosinophils % (Manual) Basophils % (Manual) Seg Neutrophils # Seg Neutrophils # Man Lymphocytes # (Manual) Monocytes # (Manual) Eosinophils # (Manual) Nucleated RBC % Basophils # (Manual) PT INR APTT Heparin Anti-Xa Level ABG pH POC ABG pO2 ABG pO2 ABG HCO3 ABG O2 Saturation ABG Base Excess POC ABG pCO2 ABG Hemoglobin ABG Oxyhemoglobin ABG Glucose Oxyhemoglobin Sodium Potassium Chloride Carbon Dioxide BUN Creatinine Glucose POC Glucose 159 H 198 H 115 H Lactic Acid Calcium Phosphorus Magnesium AST ALT Lactate Dehydrogenase CK-MB (CK-2) C-Reactive Protein NT-Pro-B Natriuret Pep Total Protein Albumin Arterial Blood Glucose Urine WBC (Auto) 12/06/19 12/06/19 12/06/19 05:24 05:24 05:25 WBC 14.9 H RBC Hgb 10.8 L Hct 34.0 L MCHC RDW 15.6 H MCV MCH Lymph % (Auto) 10.7 L [place] % (Auto) 8.3 H [place] # 1.2 H Eos # Lymph # (Auto) [place] # (Auto) Eos # (Auto) Seg Neutrophils % 78.7 H Seg Neuts % (Manual) Baso # (Auto) Lymphocytes % (Manual) Monocytes % (Manual) Eosinophils % (Manual) Basophils % (Manual) Seg Neutrophils # 11.7 H Seg Neutrophils # Man Lymphocytes # (Manual) Monocytes # (Manual) Eosinophils # (Manual) Nucleated RBC % Basophils # (Manual) PT INR APTT Heparin Anti-Xa Level ABG pH POC ABG pO2 ABG pO2 ABG HCO3 ABG O2 Saturation ABG Base Excess POC ABG pCO2 ABG Hemoglobin ABG Oxyhemoglobin ABG Glucose Oxyhemoglobin Sodium 148 H Potassium 5.1 H Chloride 107.6 H Carbon Dioxide BUN 27 H Creatinine 0.7 L Glucose 155 H POC Glucose 157 H Lactic Acid Calcium Phosphorus Magnesium AST ALT Lactate Dehydrogenase CK-MB (CK-2) C-Reactive Protein NT-Pro-B Natriuret Pep Total Protein Albumin Arterial Blood Glucose Urine WBC (Auto) 12/07/19 12/07/19 12/07/19 00:13 05:34 11:33 WBC RBC Hgb Hct MCHC RDW MCV MCH Lymph % (Auto) [place] % (Auto) [place] # Eos # Lymph # (Auto) [place] # (Auto) Eos # (Auto) Seg Neutrophils % Seg Neuts % (Manual) Baso # (Auto) Lymphocytes % (Manual) Monocytes % (Manual) Eosinophils % (Manual) Basophils % (Manual) Seg Neutrophils # Seg Neutrophils # Man Lymphocytes # (Manual) Monocytes # (Manual) Eosinophils # (Manual) Nucleated RBC % Basophils # (Manual) PT INR APTT Heparin Anti-Xa Level ABG pH POC ABG pO2 ABG pO2 ABG HCO3 ABG O2 Saturation ABG Base Excess POC ABG pCO2 ABG Hemoglobin ABG Oxyhemoglobin ABG Glucose Oxyhemoglobin Sodium Potassium Chloride Carbon Dioxide BUN Creatinine Glucose POC Glucose 142 H 111 H 169 H Lactic Acid Calcium Phosphorus Magnesium AST ALT Lactate Dehydrogenase CK-MB (CK-2) C-Reactive Protein NT-Pro-B Natriuret Pep Total Protein Albumin Arterial Blood Glucose Urine WBC (Auto) 12/07/19 12/07/19 12/07/19 12:41 13:25 18:19 WBC 12.4 H RBC 3.53 L Hgb 10.2 L Hct 32.1 L MCHC RDW 15.3 H MCV MCH Lymph % (Auto) 10.6 L [place] % (Auto) 7.8 H [place] # 1.0 H Eos # Lymph # (Auto) [place] # (Auto) Eos # (Auto) Seg Neutrophils % 77.6 H Seg Neuts % (Manual) Baso # (Auto) Lymphocytes % (Manual) Monocytes % (Manual) Eosinophils % (Manual) Basophils % (Manual) Seg Neutrophils # 9.6 H Seg Neutrophils # Man Lymphocytes # (Manual) Monocytes # (Manual) Eosinophils # (Manual) Nucleated RBC % Basophils # (Manual) PT INR APTT Heparin Anti-Xa Level ABG pH POC ABG pO2 ABG pO2 ABG HCO3 ABG O2 Saturation ABG Base Excess POC ABG pCO2 ABG Hemoglobin ABG Oxyhemoglobin ABG Glucose Oxyhemoglobin Sodium 149 H Potassium Chloride 108.4 H Carbon Dioxide BUN 26 H Creatinine 0.6 L Glucose 149 H POC Glucose 164 H Lactic Acid Calcium Phosphorus Magnesium 2.60 H AST 121 H ALT 145 H Lactate Dehydrogenase CK-MB (CK-2) C-Reactive Protein NT-Pro-B Natriuret Pep Total Protein Albumin 2.6 L Arterial Blood Glucose Urine WBC (Auto) 12/07/19 12/08/19 12/08/19 22:25 00:02 03:55 WBC 13.3 H RBC 3.40 L Hgb 9.7 L Hct 30.8 L MCHC 31 L RDW 15.5 H MCV MCH Lymph % (Auto) [place] % (Auto) 8.1 H [place] # 1.1 H Eos # Lymph # (Auto) [place] # (Auto) Eos # (Auto) Seg Neutrophils % 73.0 H Seg Neuts % (Manual) Baso # (Auto) Lymphocytes % (Manual) Monocytes % (Manual) Eosinophils % (Manual) Basophils % (Manual) Seg Neutrophils # 9.7 H Seg Neutrophils # Man Lymphocytes # (Manual) Monocytes # (Manual) Eosinophils # (Manual) Nucleated RBC % Basophils # (Manual) PT INR APTT Heparin Anti-Xa Level 0.12 L ABG pH POC ABG pO2 ABG pO2 ABG HCO3 ABG O2 Saturation ABG Base Excess POC ABG pCO2 ABG Hemoglobin ABG Oxyhemoglobin ABG Glucose Oxyhemoglobin Sodium Potassium Chloride Carbon Dioxide BUN Creatinine Glucose POC Glucose 151 H Lactic Acid Calcium Phosphorus Magnesium AST ALT Lactate Dehydrogenase CK-MB (CK-2) C-Reactive Protein NT-Pro-B Natriuret Pep Total Protein Albumin Arterial Blood Glucose Urine WBC (Auto) 12/08/19 12/08/19 12/08/19 03:55 05:21 06:01 WBC RBC Hgb Hct MCHC RDW MCV MCH Lymph % (Auto) [place] % (Auto) [place] # Eos # Lymph # (Auto) [place] # (Auto) Eos # (Auto) Seg Neutrophils % Seg Neuts % (Manual) Baso # (Auto) Lymphocytes % (Manual) Monocytes % (Manual) Eosinophils % (Manual) Basophils % (Manual) Seg Neutrophils # Seg Neutrophils # Man Lymphocytes # (Manual) Monocytes # (Manual) Eosinophils # (Manual) Nucleated RBC % Basophils # (Manual) PT INR APTT Heparin Anti-Xa Level 0.20 L ABG pH POC ABG pO2 ABG pO2 ABG HCO3 ABG O2 Saturation ABG Base Excess POC ABG pCO2 ABG Hemoglobin ABG Oxyhemoglobin ABG Glucose Oxyhemoglobin Sodium 149 H Potassium Chloride 108.0 H Carbon Dioxide BUN 28 H Creatinine 0.6 L Glucose 144 H POC Glucose 143 H Lactic Acid Calcium Phosphorus Magnesium AST 98 H ALT 145 H Lactate Dehydrogenase CK-MB (CK-2) C-Reactive Protein NT-Pro-B Natriuret Pep Total Protein 6.0 L Albumin 2.4 L Arterial Blood Glucose Urine WBC (Auto) 12/08/19 12/08/19 12/08/19 12:08 18:11 23:53 WBC RBC Hgb Hct MCHC RDW MCV MCH Lymph % (Auto) [place] % (Auto) [place] # Eos # Lymph # (Auto) [place] # (Auto) Eos # (Auto) Seg Neutrophils % Seg Neuts % (Manual) Baso # (Auto) Lymphocytes % (Manual) Monocytes % (Manual) Eosinophils % (Manual) Basophils % (Manual) Seg Neutrophils # Seg Neutrophils # Man Lymphocytes # (Manual) Monocytes # (Manual) Eosinophils # (Manual) Nucleated RBC % Basophils # (Manual) PT INR APTT Heparin Anti-Xa Level ABG pH POC ABG pO2 ABG pO2 ABG HCO3 ABG O2 Saturation ABG Base Excess POC ABG pCO2 ABG Hemoglobin ABG Oxyhemoglobin ABG Glucose Oxyhemoglobin Sodium Potassium Chloride Carbon Dioxide BUN Creatinine Glucose POC Glucose 172 H 122 H 162 H Lactic Acid Calcium Phosphorus Magnesium AST ALT Lactate Dehydrogenase CK-MB (CK-2) C-Reactive Protein NT-Pro-B Natriuret Pep Total Protein Albumin Arterial Blood Glucose Urine WBC (Auto) 12/09/19 12/09/19 12/09/19 04:03 04:03 05:53 WBC RBC Hgb 9.1 L Hct 28.9 L MCHC RDW MCV MCH Lymph % (Auto) [place] % (Auto) [place] # Eos # Lymph # (Auto) [place] # (Auto) Eos # (Auto) Seg Neutrophils % Seg Neuts % (Manual) Baso # (Auto) Lymphocytes % (Manual) Monocytes % (Manual) Eosinophils % (Manual) Basophils % (Manual) Seg Neutrophils # Seg Neutrophils # Man Lymphocytes # (Manual) Monocytes # (Manual) Eosinophils # (Manual) Nucleated RBC % Basophils # (Manual) PT INR APTT Heparin Anti-Xa Level 0.15 L ABG pH POC ABG pO2 ABG pO2 ABG HCO3 ABG O2 Saturation ABG Base Excess POC ABG pCO2 ABG Hemoglobin ABG Oxyhemoglobin ABG Glucose Oxyhemoglobin Sodium Potassium Chloride Carbon Dioxide BUN Creatinine Glucose POC Glucose 124 H Lactic Acid Calcium Phosphorus Magnesium AST ALT Lactate Dehydrogenase CK-MB (CK-2) C-Reactive Protein NT-Pro-B Natriuret Pep Total Protein Albumin Arterial Blood Glucose Urine WBC (Auto) 12/09/19 12/09/19 12/10/19 09:43 12:41 00:13 WBC RBC Hgb Hct MCHC RDW MCV MCH Lymph % (Auto) [place] % (Auto) [place] # Eos # Lymph # (Auto) [place] # (Auto) Eos # (Auto) Seg Neutrophils % Seg Neuts % (Manual) Baso # (Auto) Lymphocytes % (Manual) Monocytes % (Manual) Eosinophils % (Manual) Basophils % (Manual) Seg Neutrophils # Seg Neutrophils # Man Lymphocytes # (Manual) Monocytes # (Manual) Eosinophils # (Manual) Nucleated RBC % Basophils # (Manual) PT INR APTT Heparin Anti-Xa Level ABG pH POC ABG pO2 ABG pO2 ABG HCO3 ABG O2 Saturation ABG Base Excess POC ABG pCO2 ABG Hemoglobin ABG Oxyhemoglobin ABG Glucose Oxyhemoglobin Sodium Potassium Chloride Carbon Dioxide BUN 25 H Creatinine 0.6 L Glucose 131 H POC Glucose 109 H 120 H Lactic Acid Calcium Phosphorus Magnesium AST ALT Lactate Dehydrogenase CK-MB (CK-2) C-Reactive Protein NT-Pro-B Natriuret Pep Total Protein Albumin Arterial Blood Glucose Urine WBC (Auto) 12/10/19 12/10/19 12/10/19 04:14 04:14 12:00 WBC 13.3 H RBC 3.34 L Hgb 9.6 L Hct 30.4 L MCHC RDW 15.4 H MCV MCH Lymph % (Auto) [place] % (Auto) [place] # Eos # Lymph # (Auto) [place] # (Auto) Eos # (Auto) Seg Neutrophils % Seg Neuts % (Manual) 75.0 H Baso # (Auto) Lymphocytes % (Manual) 13.0 L Monocytes % (Manual) 8.0 H Eosinophils % (Manual) Basophils % (Manual) 2.0 H Seg Neutrophils # Seg Neutrophils # Man 10.0 H Lymphocytes # (Manual) Monocytes # (Manual) 1.1 H Eosinophils # (Manual) Nucleated RBC % Basophils # (Manual) 0.3 H PT INR APTT Heparin Anti-Xa Level ABG pH POC ABG pO2 ABG pO2 ABG HCO3 ABG O2 Saturation ABG Base Excess POC ABG pCO2 ABG Hemoglobin ABG Oxyhemoglobin ABG Glucose Oxyhemoglobin Sodium 147 H Potassium Chloride 108.3 H Carbon Dioxide BUN 21 H Creatinine 0.6 L Glucose 104 H POC Glucose 133 H Lactic Acid Calcium Phosphorus Magnesium AST ALT Lactate Dehydrogenase CK-MB (CK-2) C-Reactive Protein NT-Pro-B Natriuret Pep Total Protein Albumin Arterial Blood Glucose Urine WBC (Auto) 12/10/19 12/10/19 12/11/19 18:44 21:20 00:08 WBC 14.9 H RBC 3.36 L Hgb 9.6 L Hct 30.5 L MCHC RDW 15.4 H MCV MCH Lymph % (Auto) [place] % (Auto) [place] # Eos # Lymph # (Auto) [place] # (Auto) Eos # (Auto) Seg Neutrophils % Seg Neuts % (Manual) Baso # (Auto) Lymphocytes % (Manual) Monocytes % (Manual) Eosinophils % (Manual) Basophils % (Manual) Seg Neutrophils # Seg Neutrophils # Man Lymphocytes # (Manual) Monocytes # (Manual) Eosinophils # (Manual) Nucleated RBC % Basophils # (Manual) PT INR APTT Heparin Anti-Xa Level ABG pH POC ABG pO2 ABG pO2 ABG HCO3 ABG O2 Saturation ABG Base Excess POC ABG pCO2 ABG Hemoglobin ABG Oxyhemoglobin ABG Glucose Oxyhemoglobin Sodium Potassium Chloride Carbon Dioxide BUN Creatinine Glucose POC Glucose 119 H 134 H Lactic Acid Calcium Phosphorus Magnesium AST ALT Lactate Dehydrogenase CK-MB (CK-2) C-Reactive Protein NT-Pro-B Natriuret Pep Total Protein Albumin Arterial Blood Glucose Urine WBC (Auto) 12/11/19 12/11/19 12/11/19 03:54 07:28 08:36 WBC 11.9 H RBC 3.25 L Hgb 9.6 L Hct 29.2 L MCHC RDW 15.7 H MCV MCH Lymph % (Auto) [place] % (Auto) [place] # Eos # Lymph # (Auto) [place] # (Auto) Eos # (Auto) Seg Neutrophils % Seg Neuts % (Manual) Baso # (Auto) Lymphocytes % (Manual) Monocytes % (Manual) Eosinophils % (Manual) Basophils % (Manual) Seg Neutrophils # Seg Neutrophils # Man Lymphocytes # (Manual) Monocytes # (Manual) Eosinophils # (Manual) Nucleated RBC % Basophils # (Manual) PT INR APTT Heparin Anti-Xa Level 0.10 L 0.16 L ABG pH POC ABG pO2 ABG pO2 ABG HCO3 ABG O2 Saturation ABG Base Excess POC ABG pCO2 ABG Hemoglobin ABG Oxyhemoglobin ABG Glucose Oxyhemoglobin Sodium Potassium Chloride Carbon Dioxide BUN Creatinine Glucose POC Glucose Lactic Acid Calcium Phosphorus Magnesium AST ALT Lactate Dehydrogenase CK-MB (CK-2) C-Reactive Protein NT-Pro-B Natriuret Pep Total Protein Albumin Arterial Blood Glucose Urine WBC (Auto) 12/11/19 12/11/19 12/11/19 08:36 11:45 17:15 WBC RBC Hgb Hct MCHC RDW MCV MCH Lymph % (Auto) [place] % (Auto) [place] # Eos # Lymph # (Auto) [place] # (Auto) Eos # (Auto) Seg Neutrophils % Seg Neuts % (Manual) Baso # (Auto) Lymphocytes % (Manual) Monocytes % (Manual) Eosinophils % (Manual) Basophils % (Manual) Seg Neutrophils # Seg Neutrophils # Man Lymphocytes # (Manual) Monocytes # (Manual) Eosinophils # (Manual) Nucleated RBC % Basophils # (Manual) PT INR APTT Heparin Anti-Xa Level ABG pH POC ABG pO2 ABG pO2 ABG HCO3 ABG O2 Saturation ABG Base Excess POC ABG pCO2 ABG Hemoglobin ABG Oxyhemoglobin ABG Glucose Oxyhemoglobin Sodium Potassium Chloride Carbon Dioxide BUN Creatinine 0.5 L Glucose 128 H POC Glucose 136 H 109 H Lactic Acid Calcium Phosphorus Magnesium AST ALT Lactate Dehydrogenase CK-MB (CK-2) C-Reactive Protein NT-Pro-B Natriuret Pep Total Protein Albumin Arterial Blood Glucose Urine WBC (Auto) 12/12/19 12/12/19 12/12/19 00:03 05:53 05:53 WBC RBC Hgb 8.8 L Hct 27.6 L MCHC RDW MCV MCH Lymph % (Auto) [place] % (Auto) [place] # Eos # Lymph # (Auto) [place] # (Auto) Eos # (Auto) Seg Neutrophils % Seg Neuts % (Manual) Baso # (Auto) Lymphocytes % (Manual) Monocytes % (Manual) Eosinophils % (Manual) Basophils % (Manual) Seg Neutrophils # Seg Neutrophils # Man Lymphocytes # (Manual) Monocytes # (Manual) Eosinophils # (Manual) Nucleated RBC % Basophils # (Manual) PT INR APTT Heparin Anti-Xa Level 0.22 L ABG pH POC ABG pO2 ABG pO2 ABG HCO3 ABG O2 Saturation ABG Base Excess POC ABG pCO2 ABG Hemoglobin ABG Oxyhemoglobin ABG Glucose Oxyhemoglobin Sodium Potassium Chloride Carbon Dioxide BUN Creatinine Glucose POC Glucose 116 H Lactic Acid Calcium Phosphorus Magnesium AST ALT Lactate Dehydrogenase CK-MB (CK-2) C-Reactive Protein NT-Pro-B Natriuret Pep Total Protein Albumin Arterial Blood Glucose Urine WBC (Auto) 12/12/19 12/12/19 12/12/19 09:38 12:18 17:44 WBC RBC Hgb Hct MCHC RDW MCV MCH Lymph % (Auto) [place] % (Auto) [place] # Eos # Lymph # (Auto) [place] # (Auto) Eos # (Auto) Seg Neutrophils % Seg Neuts % (Manual) Baso # (Auto) Lymphocytes % (Manual) Monocytes % (Manual) Eosinophils % (Manual) Basophils % (Manual) Seg Neutrophils # Seg Neutrophils # Man Lymphocytes # (Manual) Monocytes # (Manual) Eosinophils # (Manual) Nucleated RBC % Basophils # (Manual) PT INR APTT Heparin Anti-Xa Level ABG pH POC ABG pO2 ABG pO2 ABG HCO3 ABG O2 Saturation ABG Base Excess POC ABG pCO2 ABG Hemoglobin ABG Oxyhemoglobin ABG Glucose Oxyhemoglobin Sodium Potassium Chloride Carbon Dioxide BUN Creatinine Glucose POC Glucose 115 H 146 H 146 H Lactic Acid Calcium Phosphorus Magnesium AST ALT Lactate Dehydrogenase CK-MB (CK-2) C-Reactive Protein NT-Pro-B Natriuret Pep Total Protein Albumin Arterial Blood Glucose Urine WBC (Auto) 12/12/19 12/13/19 12/13/19 23:33 05:32 05:32 WBC 13.1 H RBC 3.27 L Hgb 9.5 L Hct 29.3 L MCHC RDW 15.6 H MCV MCH Lymph % (Auto) [place] % (Auto) [place] # Eos # Lymph # (Auto) [place] # (Auto) Eos # (Auto) Seg Neutrophils % Seg Neuts % (Manual) 74.0 H Baso # (Auto) Lymphocytes % (Manual) 8.0 L Monocytes % (Manual) 9.0 H Eosinophils % (Manual) 5.0 H Basophils % (Manual) Seg Neutrophils # Seg Neutrophils # Man 9.7 H Lymphocytes # (Manual) 1.0 L Monocytes # (Manual) 1.2 H Eosinophils # (Manual) 0.7 H Nucleated RBC % Basophils # (Manual) PT INR APTT Heparin Anti-Xa Level 0.20 L ABG pH POC ABG pO2 ABG pO2 ABG HCO3 ABG O2 Saturation ABG Base Excess POC ABG pCO2 ABG Hemoglobin ABG Oxyhemoglobin ABG Glucose Oxyhemoglobin Sodium Potassium Chloride Carbon Dioxide BUN Creatinine Glucose POC Glucose 126 H Lactic Acid Calcium Phosphorus Magnesium AST ALT Lactate Dehydrogenase CK-MB (CK-2) C-Reactive Protein NT-Pro-B Natriuret Pep Total Protein Albumin Arterial Blood Glucose Urine WBC (Auto) 12/13/19 12/13/19 12/13/19 05:32 05:46 11:57 WBC RBC Hgb Hct MCHC RDW MCV MCH Lymph % (Auto) [place] % (Auto) [place] # Eos # Lymph # (Auto) [place] # (Auto) Eos # (Auto) Seg Neutrophils % Seg Neuts % (Manual) Baso # (Auto) Lymphocytes % (Manual) Monocytes % (Manual) Eosinophils % (Manual) Basophils % (Manual) Seg Neutrophils # Seg Neutrophils # Man Lymphocytes # (Manual) Monocytes # (Manual) Eosinophils # (Manual) Nucleated RBC % Basophils # (Manual) PT INR APTT Heparin Anti-Xa Level ABG pH POC ABG pO2 ABG pO2 ABG HCO3 ABG O2 Saturation ABG Base Excess POC ABG pCO2 ABG Hemoglobin ABG Oxyhemoglobin ABG Glucose Oxyhemoglobin Sodium Potassium Chloride Carbon Dioxide 31 H BUN Creatinine 0.6 L Glucose 114 H POC Glucose 118 H 133 H Lactic Acid Calcium Phosphorus Magnesium AST ALT Lactate Dehydrogenase CK-MB (CK-2) C-Reactive Protein NT-Pro-B Natriuret Pep Total Protein Albumin Arterial Blood Glucose Urine WBC (Auto) 12/13/19 12/13/19 12/14/19 17:44 23:46 05:32 WBC RBC Hgb Hct MCHC RDW MCV MCH Lymph % (Auto) [place] % (Auto) [place] # Eos # Lymph # (Auto) [place] # (Auto) Eos # (Auto) Seg Neutrophils % Seg Neuts % (Manual) Baso # (Auto) Lymphocytes % (Manual) Monocytes % (Manual) Eosinophils % (Manual) Basophils % (Manual) Seg Neutrophils # Seg Neutrophils # Man Lymphocytes # (Manual) Monocytes # (Manual) Eosinophils # (Manual) Nucleated RBC % Basophils # (Manual) PT INR APTT Heparin Anti-Xa Level ABG pH POC ABG pO2 ABG pO2 ABG HCO3 ABG O2 Saturation ABG Base Excess POC ABG pCO2 ABG Hemoglobin ABG Oxyhemoglobin ABG Glucose Oxyhemoglobin Sodium Potassium Chloride Carbon Dioxide BUN Creatinine Glucose POC Glucose 161 H 126 H 139 H Lactic Acid Calcium Phosphorus Magnesium AST ALT Lactate Dehydrogenase CK-MB (CK-2) C-Reactive Protein NT-Pro-B Natriuret Pep Total Protein Albumin Arterial Blood Glucose Urine WBC (Auto) 12/14/19 12/14/19 12/14/19 06:03 06:03 09:37 WBC RBC Hgb 9.6 L Hct 30.4 L MCHC RDW MCV MCH Lymph % (Auto) [place] % (Auto) [place] # Eos # Lymph # (Auto) [place] # (Auto) Eos # (Auto) Seg Neutrophils % Seg Neuts % (Manual) Baso # (Auto) Lymphocytes % (Manual) Monocytes % (Manual) Eosinophils % (Manual) Basophils % (Manual) Seg Neutrophils # Seg Neutrophils # Man Lymphocytes # (Manual) Monocytes # (Manual) Eosinophils # (Manual) Nucleated RBC % Basophils # (Manual) PT INR APTT Heparin Anti-Xa Level 0.24 L ABG pH POC ABG pO2 ABG pO2 ABG HCO3 ABG O2 Saturation ABG Base Excess POC ABG pCO2 ABG Hemoglobin ABG Oxyhemoglobin ABG Glucose Oxyhemoglobin Sodium Potassium Chloride Carbon Dioxide BUN Creatinine 0.6 L Glucose 162 H POC Glucose Lactic Acid Calcium Phosphorus Magnesium AST 71 H ALT 118 H Lactate Dehydrogenase CK-MB (CK-2) C-Reactive Protein NT-Pro-B Natriuret Pep Total Protein 6.2 L Albumin 2.3 L Arterial Blood Glucose Urine WBC (Auto) 12/14/19 12/14/19 12/15/19 12:06 18:18 00:19 WBC RBC Hgb Hct MCHC RDW MCV MCH Lymph % (Auto) [place] % (Auto) [place] # Eos # Lymph # (Auto) [place] # (Auto) Eos # (Auto) Seg Neutrophils % Seg Neuts % (Manual) Baso # (Auto) Lymphocytes % (Manual) Monocytes % (Manual) Eosinophils % (Manual) Basophils % (Manual) Seg Neutrophils # Seg Neutrophils # Man Lymphocytes # (Manual) Monocytes # (Manual) Eosinophils # (Manual) Nucleated RBC % Basophils # (Manual) PT INR APTT Heparin Anti-Xa Level ABG pH POC ABG pO2 ABG pO2 ABG HCO3 ABG O2 Saturation ABG Base Excess POC ABG pCO2 ABG Hemoglobin ABG Oxyhemoglobin ABG Glucose Oxyhemoglobin Sodium Potassium Chloride Carbon Dioxide BUN Creatinine Glucose POC Glucose 147 H 166 H 123 H Lactic Acid Calcium Phosphorus Magnesium AST ALT Lactate Dehydrogenase CK-MB (CK-2) C-Reactive Protein NT-Pro-B Natriuret Pep Total Protein Albumin Arterial Blood Glucose Urine WBC (Auto) 12/15/19 12/15/19 12/15/19 05:28 05:29 05:29 WBC 14.9 H RBC 3.19 L Hgb 9.1 L Hct 28.7 L MCHC RDW 16.0 H MCV MCH Lymph % (Auto) [place] % (Auto) [place] # Eos # Lymph # (Auto) [place] # (Auto) Eos # (Auto) Seg Neutrophils % Seg Neuts % (Manual) Baso # (Auto) Lymphocytes % (Manual) Monocytes % (Manual) Eosinophils % (Manual) Basophils % (Manual) Seg Neutrophils # Seg Neutrophils # Man Lymphocytes # (Manual) Monocytes # (Manual) Eosinophils # (Manual) Nucleated RBC % Basophils # (Manual) PT INR APTT Heparin Anti-Xa Level 0.19 L ABG pH POC ABG pO2 ABG pO2 ABG HCO3 ABG O2 Saturation ABG Base Excess POC ABG pCO2 ABG Hemoglobin ABG Oxyhemoglobin ABG Glucose Oxyhemoglobin Sodium Potassium Chloride Carbon Dioxide BUN Creatinine 0.6 L Glucose 110 H POC Glucose Lactic Acid Calcium Phosphorus Magnesium AST ALT Lactate Dehydrogenase CK-MB (CK-2) C-Reactive Protein NT-Pro-B Natriuret Pep Total Protein Albumin Arterial Blood Glucose Urine WBC (Auto) 12/15/19 12/15/19 12/15/19 05:53 11:50 17:26 WBC RBC Hgb Hct MCHC RDW MCV MCH Lymph % (Auto) [place] % (Auto) [place] # Eos # Lymph # (Auto) [place] # (Auto) Eos # (Auto) Seg Neutrophils % Seg Neuts % (Manual) Baso # (Auto) Lymphocytes % (Manual) Monocytes % (Manual) Eosinophils % (Manual) Basophils % (Manual) Seg Neutrophils # Seg Neutrophils # Man Lymphocytes # (Manual) Monocytes # (Manual) Eosinophils # (Manual) Nucleated RBC % Basophils # (Manual) PT INR APTT Heparin Anti-Xa Level ABG pH POC ABG pO2 ABG pO2 ABG HCO3 ABG O2 Saturation ABG Base Excess POC ABG pCO2 ABG Hemoglobin ABG Oxyhemoglobin ABG Glucose Oxyhemoglobin Sodium Potassium Chloride Carbon Dioxide BUN Creatinine Glucose POC Glucose 119 H 132 H 128 H Lactic Acid Calcium Phosphorus Magnesium AST ALT Lactate Dehydrogenase CK-MB (CK-2) C-Reactive Protein NT-Pro-B Natriuret Pep Total Protein Albumin Arterial Blood Glucose Urine WBC (Auto) 12/15/19 12/16/19 12/16/19 23:11 05:30 05:46 WBC RBC Hgb 8.8 L Hct 27.9 L MCHC RDW MCV MCH Lymph % (Auto) [place] % (Auto) [place] # Eos # Lymph # (Auto) [place] # (Auto) Eos # (Auto) Seg Neutrophils % Seg Neuts % (Manual) Baso # (Auto) Lymphocytes % (Manual) Monocytes % (Manual) Eosinophils % (Manual) Basophils % (Manual) Seg Neutrophils # Seg Neutrophils # Man Lymphocytes # (Manual) Monocytes # (Manual) Eosinophils # (Manual) Nucleated RBC % Basophils # (Manual) PT INR APTT Heparin Anti-Xa Level ABG pH POC ABG pO2 ABG pO2 ABG HCO3 ABG O2 Saturation ABG Base Excess POC ABG pCO2 ABG Hemoglobin ABG Oxyhemoglobin ABG Glucose Oxyhemoglobin Sodium Potassium Chloride Carbon Dioxide BUN Creatinine Glucose POC Glucose 150 H 134 H Lactic Acid Calcium Phosphorus Magnesium AST ALT Lactate Dehydrogenase CK-MB (CK-2) C-Reactive Protein NT-Pro-B Natriuret Pep Total Protein Albumin Arterial Blood Glucose Urine WBC (Auto) 12/16/19 12/16/19 12/16/19 05:46 05:46 11:44 WBC RBC Hgb Hct MCHC RDW MCV MCH Lymph % (Auto) [place] % (Auto) [place] # Eos # Lymph # (Auto) [place] # (Auto) Eos # (Auto) Seg Neutrophils % Seg Neuts % (Manual) Baso # (Auto) Lymphocytes % (Manual) Monocytes % (Manual) Eosinophils % (Manual) Basophils % (Manual) Seg Neutrophils # Seg Neutrophils # Man Lymphocytes # (Manual) Monocytes # (Manual) Eosinophils # (Manual) Nucleated RBC % Basophils # (Manual) PT INR APTT Heparin Anti-Xa Level 0.20 L ABG pH POC ABG pO2 ABG pO2 ABG HCO3 ABG O2 Saturation ABG Base Excess POC ABG pCO2 ABG Hemoglobin ABG Oxyhemoglobin ABG Glucose Oxyhemoglobin Sodium Potassium Chloride Carbon Dioxide 31 H BUN Creatinine 0.5 L Glucose 147 H POC Glucose 164 H Lactic Acid Calcium Phosphorus Magnesium AST ALT Lactate Dehydrogenase CK-MB (CK-2) C-Reactive Protein NT-Pro-B Natriuret Pep Total Protein Albumin Arterial Blood Glucose Urine WBC (Auto) 12/16/19 12/16/19 12/17/19 17:17 23:49 05:30 WBC 13.9 H RBC 3.27 L Hgb 9.4 L Hct 29.2 L MCHC RDW 16.0 H MCV MCH Lymph % (Auto) [place] % (Auto) 8.8 H [place] # Eos # Lymph # (Auto) [place] # (Auto) 1.2 H Eos # (Auto) 0.5 H Seg Neutrophils % 70.5 H Seg Neuts % (Manual) Baso # (Auto) 0.2 H Lymphocytes % (Manual) Monocytes % (Manual) Eosinophils % (Manual) Basophils % (Manual) Seg Neutrophils # 9.8 H Seg Neutrophils # Man Lymphocytes # (Manual) Monocytes # (Manual) Eosinophils # (Manual) Nucleated RBC % Basophils # (Manual) PT INR APTT Heparin Anti-Xa Level ABG pH POC ABG pO2 ABG pO2 ABG HCO3 ABG O2 Saturation ABG Base Excess POC ABG pCO2 ABG Hemoglobin ABG Oxyhemoglobin ABG Glucose Oxyhemoglobin Sodium Potassium Chloride Carbon Dioxide BUN Creatinine Glucose POC Glucose 162 H 144 H Lactic Acid Calcium Phosphorus Magnesium AST ALT Lactate Dehydrogenase CK-MB (CK-2) C-Reactive Protein NT-Pro-B Natriuret Pep Total Protein Albumin Arterial Blood Glucose Urine WBC (Auto) 12/17/19 12/17/19 12/17/19 05:30 06:06 11:50 WBC RBC Hgb Hct MCHC RDW MCV MCH Lymph % (Auto) [place] % (Auto) [place] # Eos # Lymph # (Auto) [place] # (Auto) Eos # (Auto) Seg Neutrophils % Seg Neuts % (Manual) Baso # (Auto) Lymphocytes % (Manual) Monocytes % (Manual) Eosinophils % (Manual) Basophils % (Manual) Seg Neutrophils # Seg Neutrophils # Man Lymphocytes # (Manual) Monocytes # (Manual) Eosinophils # (Manual) Nucleated RBC % Basophils # (Manual) PT INR APTT Heparin Anti-Xa Level ABG pH POC ABG pO2 ABG pO2 ABG HCO3 ABG O2 Saturation ABG Base Excess POC ABG pCO2 ABG Hemoglobin ABG Oxyhemoglobin ABG Glucose Oxyhemoglobin Sodium Potassium Chloride 97.4 L Carbon Dioxide 32 H BUN Creatinine 0.5 L Glucose 135 H POC Glucose 151 H 140 H Lactic Acid Calcium Phosphorus Magnesium AST ALT Lactate Dehydrogenase CK-MB (CK-2) C-Reactive Protein NT-Pro-B Natriuret Pep Total Protein Albumin Arterial Blood Glucose Urine WBC (Auto) 12/17/19 12/17/19 12/18/19 17:50 23:46 05:17 WBC RBC Hgb 8.8 L Hct 28.0 L MCHC RDW MCV MCH Lymph % (Auto) [place] % (Auto) [place] # Eos # Lymph # (Auto) [place] # (Auto) Eos # (Auto) Seg Neutrophils % Seg Neuts % (Manual) Baso # (Auto) Lymphocytes % (Manual) Monocytes % (Manual) Eosinophils % (Manual) Basophils % (Manual) Seg Neutrophils # Seg Neutrophils # Man Lymphocytes # (Manual) Monocytes # (Manual) Eosinophils # (Manual) Nucleated RBC % Basophils # (Manual) PT INR APTT Heparin Anti-Xa Level ABG pH POC ABG pO2 ABG pO2 ABG HCO3 ABG O2 Saturation ABG Base Excess POC ABG pCO2 ABG Hemoglobin ABG Oxyhemoglobin ABG Glucose Oxyhemoglobin Sodium Potassium Chloride Carbon Dioxide BUN Creatinine Glucose POC Glucose 158 H 150 H Lactic Acid Calcium Phosphorus Magnesium AST ALT Lactate Dehydrogenase CK-MB (CK-2) C-Reactive Protein NT-Pro-B Natriuret Pep Total Protein Albumin Arterial Blood Glucose Urine WBC (Auto) 12/18/19 12/18/19 12/18/19 05:17 05:49 11:12 WBC RBC Hgb Hct MCHC RDW MCV MCH Lymph % (Auto) [place] % (Auto) [place] # Eos # Lymph # (Auto) [place] # (Auto) Eos # (Auto) Seg Neutrophils % Seg Neuts % (Manual) Baso # (Auto) Lymphocytes % (Manual) Monocytes % (Manual) Eosinophils % (Manual) Basophils % (Manual) Seg Neutrophils # Seg Neutrophils # Man Lymphocytes # (Manual) Monocytes # (Manual) Eosinophils # (Manual) Nucleated RBC % Basophils # (Manual) PT INR APTT Heparin Anti-Xa Level 0.16 L ABG pH POC ABG pO2 ABG pO2 ABG HCO3 ABG O2 Saturation ABG Base Excess POC ABG pCO2 ABG Hemoglobin ABG Oxyhemoglobin ABG Glucose Oxyhemoglobin Sodium Potassium Chloride Carbon Dioxide BUN Creatinine Glucose POC Glucose 127 H 191 H Lactic Acid Calcium Phosphorus Magnesium AST ALT Lactate Dehydrogenase CK-MB (CK-2) C-Reactive Protein NT-Pro-B Natriuret Pep Total Protein Albumin Arterial Blood Glucose Urine WBC (Auto) 12/18/19 12/18/19 12/19/19 17:03 20:16 00:08 WBC RBC Hgb Hct MCHC RDW MCV MCH Lymph % (Auto) [place] % (Auto) [place] # Eos # Lymph # (Auto) [place] # (Auto) Eos # (Auto) Seg Neutrophils % Seg Neuts % (Manual) Baso # (Auto) Lymphocytes % (Manual) Monocytes % (Manual) Eosinophils % (Manual) Basophils % (Manual) Seg Neutrophils # Seg Neutrophils # Man Lymphocytes # (Manual) Monocytes # (Manual) Eosinophils # (Manual) Nucleated RBC % Basophils # (Manual) PT INR APTT Heparin Anti-Xa Level ABG pH POC ABG pO2 ABG pO2 ABG HCO3 ABG O2 Saturation ABG Base Excess POC ABG pCO2 ABG Hemoglobin ABG Oxyhemoglobin ABG Glucose Oxyhemoglobin Sodium Potassium Chloride Carbon Dioxide BUN Creatinine Glucose POC Glucose 133 H 128 H 129 H Lactic Acid Calcium Phosphorus Magnesium AST ALT Lactate Dehydrogenase CK-MB (CK-2) C-Reactive Protein NT-Pro-B Natriuret Pep Total Protein Albumin Arterial Blood Glucose Urine WBC (Auto) 12/19/19 12/19/19 12/19/19 04:45 04:45 05:35 WBC RBC Hgb Hct MCHC RDW MCV MCH Lymph % (Auto) [place] % (Auto) [place] # Eos # Lymph # (Auto) [place] # (Auto) Eos # (Auto) Seg Neutrophils % Seg Neuts % (Manual) Baso # (Auto) Lymphocytes % (Manual) Monocytes % (Manual) Eosinophils % (Manual) Basophils % (Manual) Seg Neutrophils # Seg Neutrophils # Man Lymphocytes # (Manual) Monocytes # (Manual) Eosinophils # (Manual) Nucleated RBC % Basophils # (Manual) PT INR APTT Heparin Anti-Xa Level 0.17 L ABG pH POC ABG pO2 ABG pO2 ABG HCO3 ABG O2 Saturation ABG Base Excess POC ABG pCO2 ABG Hemoglobin ABG Oxyhemoglobin ABG Glucose Oxyhemoglobin Sodium Potassium Chloride Carbon Dioxide BUN Creatinine Glucose POC Glucose 120 H Lactic Acid Calcium Phosphorus Magnesium AST ALT Lactate Dehydrogenase 228 H CK-MB (CK-2) C-Reactive Protein NT-Pro-B Natriuret Pep Total Protein Albumin Arterial Blood Glucose Urine WBC (Auto) 12/19/19 12/19/19 12/19/19 09:20 11:32 11:32 WBC 14.6 H RBC 3.08 L Hgb 9.0 L Hct 26.8 L MCHC RDW 15.9 H MCV MCH Lymph % (Auto) [place] % (Auto) [place] # Eos # Lymph # (Auto) [place] # (Auto) Eos # (Auto) Seg Neutrophils % Seg Neuts % (Manual) 82.0 H Baso # (Auto) Lymphocytes % (Manual) 10.0 L Monocytes % (Manual) Eosinophils % (Manual) Basophils % (Manual) Seg Neutrophils # Seg Neutrophils # Man 12.0 H Lymphocytes # (Manual) Monocytes # (Manual) 0.9 H Eosinophils # (Manual) Nucleated RBC % 1.0 H Basophils # (Manual) PT INR APTT Heparin Anti-Xa Level ABG pH 7.451 H POC ABG pO2 ABG pO2 62.6 L ABG HCO3 33.2 H ABG O2 Saturation 93.8 L ABG Base Excess 8.3 H POC ABG pCO2 ABG Hemoglobin 8.3 L ABG Oxyhemoglobin ABG Glucose Oxyhemoglobin 91.9 L Sodium Potassium Chloride 95.0 L Carbon Dioxide 33 H BUN 22 H Creatinine 0.6 L Glucose 150 H POC Glucose Lactic Acid Calcium Phosphorus Magnesium AST ALT Lactate Dehydrogenase CK-MB (CK-2) C-Reactive Protein NT-Pro-B Natriuret Pep Total Protein 6.2 L Albumin 2.4 L Arterial Blood Glucose Urine WBC (Auto) 12/19/19 12/19/19 12/20/19 11:56 18:17 00:09 WBC RBC Hgb Hct MCHC RDW MCV MCH Lymph % (Auto) [place] % (Auto) [place] # Eos # Lymph # (Auto) [place] # (Auto) Eos # (Auto) Seg Neutrophils % Seg Neuts % (Manual) Baso # (Auto) Lymphocytes % (Manual) Monocytes % (Manual) Eosinophils % (Manual) Basophils % (Manual) Seg Neutrophils # Seg Neutrophils # Man Lymphocytes # (Manual) Monocytes # (Manual) Eosinophils # (Manual) Nucleated RBC % Basophils # (Manual) PT INR APTT Heparin Anti-Xa Level ABG pH POC ABG pO2 ABG pO2 ABG HCO3 ABG O2 Saturation ABG Base Excess POC ABG pCO2 ABG Hemoglobin ABG Oxyhemoglobin ABG Glucose Oxyhemoglobin Sodium Potassium Chloride Carbon Dioxide BUN Creatinine Glucose POC Glucose 156 H 156 H 155 H Lactic Acid Calcium Phosphorus Magnesium AST ALT Lactate Dehydrogenase CK-MB (CK-2) C-Reactive Protein NT-Pro-B Natriuret Pep Total Protein Albumin Arterial Blood Glucose Urine WBC (Auto) 12/20/19 12/20/19 12/20/19 05:26 06:02 18:17 WBC RBC Hgb Hct MCHC RDW MCV MCH Lymph % (Auto) [place] % (Auto) [place] # Eos # Lymph # (Auto) [place] # (Auto) Eos # (Auto) Seg Neutrophils % Seg Neuts % (Manual) Baso # (Auto) Lymphocytes % (Manual) Monocytes % (Manual) Eosinophils % (Manual) Basophils % (Manual) Seg Neutrophils # Seg Neutrophils # Man Lymphocytes # (Manual) Monocytes # (Manual) Eosinophils # (Manual) Nucleated RBC % Basophils # (Manual) PT INR APTT Heparin Anti-Xa Level 0.19 L ABG pH POC ABG pO2 ABG pO2 ABG HCO3 ABG O2 Saturation ABG Base Excess POC ABG pCO2 ABG Hemoglobin ABG Oxyhemoglobin ABG Glucose Oxyhemoglobin Sodium Potassium Chloride Carbon Dioxide BUN Creatinine Glucose POC Glucose 137 H 128 H Lactic Acid Calcium Phosphorus Magnesium AST ALT Lactate Dehydrogenase CK-MB (CK-2) C-Reactive Protein NT-Pro-B Natriuret Pep Total Protein Albumin Arterial Blood Glucose Urine WBC (Auto) 12/20/19 12/21/19 12/21/19 23:34 05:31 05:31 WBC 12.7 H RBC 3.09 L Hgb 8.9 L Hct 27.4 L MCHC RDW 15.8 H MCV MCH Lymph % (Auto) 12.1 L [place] % (Auto) 7.8 H [place] # Eos # Lymph # (Auto) [place] # (Auto) 1.0 H Eos # (Auto) Seg Neutrophils % 77.1 H Seg Neuts % (Manual) Baso # (Auto) Lymphocytes % (Manual) Monocytes % (Manual) Eosinophils % (Manual) Basophils % (Manual) Seg Neutrophils # 9.8 H Seg Neutrophils # Man Lymphocytes # (Manual) Monocytes # (Manual) Eosinophils # (Manual) Nucleated RBC % Basophils # (Manual) PT INR APTT Heparin Anti-Xa Level ABG pH POC ABG pO2 ABG pO2 ABG HCO3 ABG O2 Saturation ABG Base Excess POC ABG pCO2 ABG Hemoglobin ABG Oxyhemoglobin ABG Glucose Oxyhemoglobin Sodium Potassium Chloride 96.9 L Carbon Dioxide 37 H BUN 27 H Creatinine 0.7 L Glucose 140 H POC Glucose 145 H Lactic Acid Calcium Phosphorus Magnesium AST ALT Lactate Dehydrogenase CK-MB (CK-2) C-Reactive Protein NT-Pro-B Natriuret Pep Total Protein Albumin Arterial Blood Glucose Urine WBC (Auto) 12/21/19 12/21/19 12/21/19 05:38 10:13 11:51 WBC RBC Hgb Hct MCHC RDW MCV MCH Lymph % (Auto) [place] % (Auto) [place] # Eos # Lymph # (Auto) [place] # (Auto) Eos # (Auto) Seg Neutrophils % Seg Neuts % (Manual) Baso # (Auto) Lymphocytes % (Manual) Monocytes % (Manual) Eosinophils % (Manual) Basophils % (Manual) Seg Neutrophils # Seg Neutrophils # Man Lymphocytes # (Manual) Monocytes # (Manual) Eosinophils # (Manual) Nucleated RBC % Basophils # (Manual) PT INR APTT 23.9 L Heparin Anti-Xa Level < 0.10 L ABG pH POC ABG pO2 ABG pO2 ABG HCO3 ABG O2 Saturation ABG Base Excess POC ABG pCO2 ABG Hemoglobin ABG Oxyhemoglobin ABG Glucose Oxyhemoglobin Sodium Potassium Chloride Carbon Dioxide BUN Creatinine Glucose POC Glucose 151 H 145 H Lactic Acid Calcium Phosphorus Magnesium AST ALT Lactate Dehydrogenase CK-MB (CK-2) C-Reactive Protein NT-Pro-B Natriuret Pep Total Protein Albumin Arterial Blood Glucose Urine WBC (Auto) 12/21/19 12/22/19 12/22/19 17:16 00:01 01:33 WBC RBC Hgb Hct MCHC RDW MCV MCH Lymph % (Auto) [place] % (Auto) [place] # Eos # Lymph # (Auto) [place] # (Auto) Eos # (Auto) Seg Neutrophils % Seg Neuts % (Manual) Baso # (Auto) Lymphocytes % (Manual) Monocytes % (Manual) Eosinophils % (Manual) Basophils % (Manual) Seg Neutrophils # Seg Neutrophils # Man Lymphocytes # (Manual) Monocytes # (Manual) Eosinophils # (Manual) Nucleated RBC % Basophils # (Manual) PT INR APTT Heparin Anti-Xa Level 0.10 L ABG pH POC ABG pO2 ABG pO2 ABG HCO3 ABG O2 Saturation ABG Base Excess POC ABG pCO2 ABG Hemoglobin ABG Oxyhemoglobin ABG Glucose Oxyhemoglobin Sodium Potassium Chloride Carbon Dioxide BUN Creatinine Glucose POC Glucose 167 H 179 H Lactic Acid Calcium Phosphorus Magnesium AST ALT Lactate Dehydrogenase CK-MB (CK-2) C-Reactive Protein NT-Pro-B Natriuret Pep Total Protein Albumin Arterial Blood Glucose Urine WBC (Auto) 12/22/19 12/22/19 12/22/19 03:22 05:10 05:10 WBC 13.8 H RBC 3.20 L Hgb 8.9 L Hct 28.1 L MCHC RDW 15.9 H MCV MCH Lymph % (Auto) [place] % (Auto) [place] # Eos # Lymph # (Auto) [place] # (Auto) Eos # (Auto) Seg Neutrophils % Seg Neuts % (Manual) Baso # (Auto) Lymphocytes % (Manual) Monocytes % (Manual) Eosinophils % (Manual) Basophils % (Manual) Seg Neutrophils # Seg Neutrophils # Man Lymphocytes # (Manual) Monocytes # (Manual) Eosinophils # (Manual) Nucleated RBC % Basophils # (Manual) PT INR APTT Heparin Anti-Xa Level ABG pH POC ABG pO2 52.3 L ABG pO2 ABG HCO3 ABG O2 Saturation ABG Base Excess POC ABG pCO2 52.9 H ABG Hemoglobin 10.7 L ABG Oxyhemoglobin 84 L ABG Glucose Oxyhemoglobin Sodium Potassium Chloride 96.6 L Carbon Dioxide BUN 25 H Creatinine 0.7 L Glucose 129 H POC Glucose Lactic Acid Calcium Phosphorus Magnesium AST ALT Lactate Dehydrogenase CK-MB (CK-2) C-Reactive Protein NT-Pro-B Natriuret Pep Total Protein Albumin Arterial Blood Glucose Urine WBC (Auto) 12/22/19 12/22/19 12/22/19 05:18 12:32 12:43 WBC RBC Hgb Hct MCHC RDW MCV MCH Lymph % (Auto) [place] % (Auto) [place] # Eos # Lymph # (Auto) [place] # (Auto) Eos # (Auto) Seg Neutrophils % Seg Neuts % (Manual) Baso # (Auto) Lymphocytes % (Manual) Monocytes % (Manual) Eosinophils % (Manual) Basophils % (Manual) Seg Neutrophils # Seg Neutrophils # Man Lymphocytes # (Manual) Monocytes # (Manual) Eosinophils # (Manual) Nucleated RBC % Basophils # (Manual) PT INR APTT Heparin Anti-Xa Level 0.18 L ABG pH POC ABG pO2 ABG pO2 ABG HCO3 ABG O2 Saturation ABG Base Excess POC ABG pCO2 ABG Hemoglobin ABG Oxyhemoglobin ABG Glucose Oxyhemoglobin Sodium Potassium Chloride Carbon Dioxide BUN Creatinine Glucose POC Glucose 131 H 208 H Lactic Acid Calcium Phosphorus Magnesium AST ALT Lactate Dehydrogenase CK-MB (CK-2) C-Reactive Protein NT-Pro-B Natriuret Pep Total Protein Albumin Arterial Blood Glucose Urine WBC (Auto) 12/22/19 12/22/19 12/23/19 17:44 23:20 03:51 WBC 15.2 H RBC 3.43 L Hgb 9.6 L Hct 30.3 L MCHC RDW 15.9 H MCV MCH Lymph % (Auto) [place] % (Auto) [place] # Eos # Lymph # (Auto) [place] # (Auto) Eos # (Auto) Seg Neutrophils % Seg Neuts % (Manual) Baso # (Auto) Lymphocytes % (Manual) Monocytes % (Manual) Eosinophils % (Manual) Basophils % (Manual) Seg Neutrophils # Seg Neutrophils # Man Lymphocytes # (Manual) Monocytes # (Manual) Eosinophils # (Manual) Nucleated RBC % Basophils # (Manual) PT INR APTT Heparin Anti-Xa Level ABG pH POC ABG pO2 ABG pO2 ABG HCO3 ABG O2 Saturation ABG Base Excess POC ABG pCO2 ABG Hemoglobin ABG Oxyhemoglobin ABG Glucose Oxyhemoglobin Sodium Potassium Chloride Carbon Dioxide BUN Creatinine Glucose POC Glucose 209 H 119 H Lactic Acid Calcium Phosphorus Magnesium AST ALT Lactate Dehydrogenase CK-MB (CK-2) C-Reactive Protein NT-Pro-B Natriuret Pep Total Protein Albumin Arterial Blood Glucose Urine WBC (Auto) 12/23/19 12/23/19 12/23/19 03:51 05:31 12:09 WBC RBC Hgb Hct MCHC RDW MCV MCH Lymph % (Auto) [place] % (Auto) [place] # Eos # Lymph # (Auto) [place] # (Auto) Eos # (Auto) Seg Neutrophils % Seg Neuts % (Manual) Baso # (Auto) Lymphocytes % (Manual) Monocytes % (Manual) Eosinophils % (Manual) Basophils % (Manual) Seg Neutrophils # Seg Neutrophils # Man Lymphocytes # (Manual) Monocytes # (Manual) Eosinophils # (Manual) Nucleated RBC % Basophils # (Manual) PT INR APTT Heparin Anti-Xa Level ABG pH POC ABG pO2 ABG pO2 ABG HCO3 ABG O2 Saturation ABG Base Excess POC ABG pCO2 ABG Hemoglobin ABG Oxyhemoglobin ABG Glucose Oxyhemoglobin Sodium Potassium Chloride 97.2 L Carbon Dioxide 31 H BUN 23 H Creatinine 0.6 L Glucose 153 H POC Glucose 149 H 144 H Lactic Acid Calcium Phosphorus Magnesium AST ALT Lactate Dehydrogenase CK-MB (CK-2) C-Reactive Protein NT-Pro-B Natriuret Pep Total Protein Albumin Arterial Blood Glucose Urine WBC (Auto) 12/23/19 12/23/19 12/23/19 15:30 17:49 23:31 WBC RBC Hgb Hct MCHC RDW MCV MCH Lymph % (Auto) [place] % (Auto) [place] # Eos # Lymph # (Auto) [place] # (Auto) Eos # (Auto) Seg Neutrophils % Seg Neuts % (Manual) Baso # (Auto) Lymphocytes % (Manual) Monocytes % (Manual) Eosinophils % (Manual) Basophils % (Manual) Seg Neutrophils # Seg Neutrophils # Man Lymphocytes # (Manual) Monocytes # (Manual) Eosinophils # (Manual) Nucleated RBC % Basophils # (Manual) PT INR APTT Heparin Anti-Xa Level 0.21 L ABG pH POC ABG pO2 ABG pO2 ABG HCO3 ABG O2 Saturation ABG Base Excess POC ABG pCO2 ABG Hemoglobin ABG Oxyhemoglobin ABG Glucose Oxyhemoglobin Sodium Potassium Chloride Carbon Dioxide BUN Creatinine Glucose POC Glucose 192 H 151 H Lactic Acid Calcium Phosphorus Magnesium AST ALT Lactate Dehydrogenase CK-MB (CK-2) C-Reactive Protein NT-Pro-B Natriuret Pep Total Protein Albumin Arterial Blood Glucose Urine WBC (Auto) 12/24/19 12/24/19 12/24/19 05:34 12:13 16:50 WBC RBC Hgb Hct MCHC RDW MCV MCH Lymph % (Auto) [place] % (Auto) [place] # Eos # Lymph # (Auto) [place] # (Auto) Eos # (Auto) Seg Neutrophils % Seg Neuts % (Manual) Baso # (Auto) Lymphocytes % (Manual) Monocytes % (Manual) Eosinophils % (Manual) Basophils % (Manual) Seg Neutrophils # Seg Neutrophils # Man Lymphocytes # (Manual) Monocytes # (Manual) Eosinophils # (Manual) Nucleated RBC % Basophils # (Manual) PT INR APTT Heparin Anti-Xa Level 0.16 L ABG pH POC ABG pO2 ABG pO2 ABG HCO3 ABG O2 Saturation ABG Base Excess POC ABG pCO2 ABG Hemoglobin ABG Oxyhemoglobin ABG Glucose Oxyhemoglobin Sodium Potassium Chloride Carbon Dioxide BUN Creatinine Glucose POC Glucose 145 H 124 H Lactic Acid Calcium Phosphorus Magnesium AST ALT Lactate Dehydrogenase CK-MB (CK-2) C-Reactive Protein NT-Pro-B Natriuret Pep Total Protein Albumin Arterial Blood Glucose Urine WBC (Auto) 12/24/19 12/25/19 12/25/19 17:53 00:14 04:18 WBC 12.9 H RBC 3.30 L Hgb 9.1 L Hct 28.8 L MCHC RDW 16.4 H MCV MCH Lymph % (Auto) [place] % (Auto) 7.8 H [place] # Eos # Lymph # (Auto) [place] # (Auto) 1.0 H Eos # (Auto) Seg Neutrophils % 75.5 H Seg Neuts % (Manual) Baso # (Auto) Lymphocytes % (Manual) Monocytes % (Manual) Eosinophils % (Manual) Basophils % (Manual) Seg Neutrophils # 9.7 H Seg Neutrophils # Man Lymphocytes # (Manual) Monocytes # (Manual) Eosinophils # (Manual) Nucleated RBC % Basophils # (Manual) PT INR APTT Heparin Anti-Xa Level ABG pH POC ABG pO2 ABG pO2 ABG HCO3 ABG O2 Saturation ABG Base Excess POC ABG pCO2 ABG Hemoglobin ABG Oxyhemoglobin ABG Glucose Oxyhemoglobin Sodium Potassium Chloride Carbon Dioxide BUN Creatinine Glucose POC Glucose 164 H 148 H Lactic Acid Calcium Phosphorus Magnesium AST ALT Lactate Dehydrogenase CK-MB (CK-2) C-Reactive Protein NT-Pro-B Natriuret Pep Total Protein Albumin Arterial Blood Glucose Urine WBC (Auto) 12/25/19 12/25/19 12/25/19 04:18 05:38 11:44 WBC RBC Hgb Hct MCHC RDW MCV MCH Lymph % (Auto) [place] % (Auto) [place] # Eos # Lymph # (Auto) [place] # (Auto) Eos # (Auto) Seg Neutrophils % Seg Neuts % (Manual) Baso # (Auto) Lymphocytes % (Manual) Monocytes % (Manual) Eosinophils % (Manual) Basophils % (Manual) Seg Neutrophils # Seg Neutrophils # Man Lymphocytes # (Manual) Monocytes # (Manual) Eosinophils # (Manual) Nucleated RBC % Basophils # (Manual) PT INR APTT Heparin Anti-Xa Level ABG pH POC ABG pO2 ABG pO2 ABG HCO3 ABG O2 Saturation ABG Base Excess POC ABG pCO2 ABG Hemoglobin ABG Oxyhemoglobin ABG Glucose Oxyhemoglobin Sodium Potassium Chloride Carbon Dioxide 33 H BUN 27 H Creatinine 0.6 L Glucose 132 H POC Glucose 152 H 166 H Lactic Acid Calcium Phosphorus Magnesium AST ALT Lactate Dehydrogenase CK-MB (CK-2) C-Reactive Protein NT-Pro-B Natriuret Pep Total Protein Albumin Arterial Blood Glucose Urine WBC (Auto) 12/25/19 12/26/19 12/26/19 18:29 00:17 00:18 WBC RBC Hgb Hct MCHC RDW MCV MCH Lymph % (Auto) [place] % (Auto) [place] # Eos # Lymph # (Auto) [place] # (Auto) Eos # (Auto) Seg Neutrophils % Seg Neuts % (Manual) Baso # (Auto) Lymphocytes % (Manual) Monocytes % (Manual) Eosinophils % (Manual) Basophils % (Manual) Seg Neutrophils # Seg Neutrophils # Man Lymphocytes # (Manual) Monocytes # (Manual) Eosinophils # (Manual) Nucleated RBC % Basophils # (Manual) PT INR APTT Heparin Anti-Xa Level ABG pH POC ABG pO2 ABG pO2 ABG HCO3 ABG O2 Saturation ABG Base Excess POC ABG pCO2 ABG Hemoglobin ABG Oxyhemoglobin ABG Glucose Oxyhemoglobin Sodium Potassium Chloride 97.8 L Carbon Dioxide BUN 25 H Creatinine 0.6 L Glucose 140 H POC Glucose 194 H 151 H Lactic Acid Calcium Phosphorus Magnesium AST ALT Lactate Dehydrogenase CK-MB (CK-2) C-Reactive Protein NT-Pro-B Natriuret Pep Total Protein Albumin Arterial Blood Glucose Urine WBC (Auto) 12/26/19 12/26/19 12/26/19 05:36 11:41 17:50 WBC RBC Hgb Hct MCHC RDW MCV MCH Lymph % (Auto) [place] % (Auto) [place] # Eos # Lymph # (Auto) [place] # (Auto) Eos # (Auto) Seg Neutrophils % Seg Neuts % (Manual) Baso # (Auto) Lymphocytes % (Manual) Monocytes % (Manual) Eosinophils % (Manual) Basophils % (Manual) Seg Neutrophils # Seg Neutrophils # Man Lymphocytes # (Manual) Monocytes # (Manual) Eosinophils # (Manual) Nucleated RBC % Basophils # (Manual) PT INR APTT Heparin Anti-Xa Level ABG pH POC ABG pO2 ABG pO2 ABG HCO3 ABG O2 Saturation ABG Base Excess POC ABG pCO2 ABG Hemoglobin ABG Oxyhemoglobin ABG Glucose Oxyhemoglobin Sodium Potassium Chloride Carbon Dioxide BUN Creatinine Glucose POC Glucose 156 H 148 H 139 H Lactic Acid Calcium Phosphorus Magnesium AST ALT Lactate Dehydrogenase CK-MB (CK-2) C-Reactive Protein NT-Pro-B Natriuret Pep Total Protein Albumin Arterial Blood Glucose Urine WBC (Auto) 12/26/19 12/27/19 12/27/19 23:19 05:34 12:02 WBC RBC Hgb Hct MCHC RDW MCV MCH Lymph % (Auto) [place] % (Auto) [place] # Eos # Lymph # (Auto) [place] # (Auto) Eos # (Auto) Seg Neutrophils % Seg Neuts % (Manual) Baso # (Auto) Lymphocytes % (Manual) Monocytes % (Manual) Eosinophils % (Manual) Basophils % (Manual) Seg Neutrophils # Seg Neutrophils # Man Lymphocytes # (Manual) Monocytes # (Manual) Eosinophils # (Manual) Nucleated RBC % Basophils # (Manual) PT INR APTT Heparin Anti-Xa Level ABG pH POC ABG pO2 ABG pO2 ABG HCO3 ABG O2 Saturation ABG Base Excess POC ABG pCO2 ABG Hemoglobin ABG Oxyhemoglobin ABG Glucose Oxyhemoglobin Sodium Potassium Chloride Carbon Dioxide BUN Creatinine Glucose POC Glucose 161 H 145 H 157 H Lactic Acid Calcium Phosphorus Magnesium AST ALT Lactate Dehydrogenase CK-MB (CK-2) C-Reactive Protein NT-Pro-B Natriuret Pep Total Protein Albumin Arterial Blood Glucose Urine WBC (Auto) 12/27/19 12/27/19 12/27/19 17:35 20:11 23:00 WBC RBC Hgb Hct MCHC RDW MCV MCH Lymph % (Auto) [place] % (Auto) [place] # Eos # Lymph # (Auto) [place] # (Auto) Eos # (Auto) Seg Neutrophils % Seg Neuts % (Manual) Baso # (Auto) Lymphocytes % (Manual) Monocytes % (Manual) Eosinophils % (Manual) Basophils % (Manual) Seg Neutrophils # Seg Neutrophils # Man Lymphocytes # (Manual) Monocytes # (Manual) Eosinophils # (Manual) Nucleated RBC % Basophils # (Manual) PT INR APTT Heparin Anti-Xa Level 0.19 L ABG pH POC ABG pO2 ABG pO2 ABG HCO3 ABG O2 Saturation ABG Base Excess POC ABG pCO2 ABG Hemoglobin ABG Oxyhemoglobin ABG Glucose Oxyhemoglobin Sodium Potassium Chloride Carbon Dioxide BUN Creatinine Glucose POC Glucose 158 H 155 H Lactic Acid Calcium Phosphorus Magnesium AST ALT Lactate Dehydrogenase CK-MB (CK-2) C-Reactive Protein NT-Pro-B Natriuret Pep Total Protein Albumin Arterial Blood Glucose Urine WBC (Auto) 12/27/19 12/28/19 12/28/19 23:45 02:41 02:41 WBC 13.0 H RBC 3.48 L Hgb 9.5 L Hct 30.6 L MCHC 31 L RDW 16.6 H MCV MCH 27 L Lymph % (Auto) 13.0 L [place] % (Auto) 8.0 H [place] # Eos # Lymph # (Auto) [place] # (Auto) 1.0 H Eos # (Auto) Seg Neutrophils % 76.3 H Seg Neuts % (Manual) Baso # (Auto) Lymphocytes % (Manual) Monocytes % (Manual) Eosinophils % (Manual) Basophils % (Manual) Seg Neutrophils # 9.9 H Seg Neutrophils # Man Lymphocytes # (Manual) Monocytes # (Manual) Eosinophils # (Manual) Nucleated RBC % Basophils # (Manual) PT INR APTT Heparin Anti-Xa Level ABG pH POC ABG pO2 ABG pO2 ABG HCO3 ABG O2 Saturation ABG Base Excess POC ABG pCO2 ABG Hemoglobin ABG Oxyhemoglobin ABG Glucose Oxyhemoglobin Sodium Potassium Chloride Carbon Dioxide BUN 22 H Creatinine 0.6 L Glucose 101 H POC Glucose 130 H Lactic Acid Calcium Phosphorus Magnesium AST ALT Lactate Dehydrogenase CK-MB (CK-2) C-Reactive Protein NT-Pro-B Natriuret Pep Total Protein Albumin Arterial Blood Glucose Urine WBC (Auto) 12/28/19 12/28/19 12/28/19 06:00 12:34 18:13 WBC RBC Hgb Hct MCHC RDW MCV MCH Lymph % (Auto) [place] % (Auto) [place] # Eos # Lymph # (Auto) [place] # (Auto) Eos # (Auto) Seg Neutrophils % Seg Neuts % (Manual) Baso # (Auto) Lymphocytes % (Manual) Monocytes % (Manual) Eosinophils % (Manual) Basophils % (Manual) Seg Neutrophils # Seg Neutrophils # Man Lymphocytes # (Manual) Monocytes # (Manual) Eosinophils # (Manual) Nucleated RBC % Basophils # (Manual) PT INR APTT Heparin Anti-Xa Level ABG pH POC ABG pO2 ABG pO2 ABG HCO3 ABG O2 Saturation ABG Base Excess POC ABG pCO2 ABG Hemoglobin ABG Oxyhemoglobin ABG Glucose Oxyhemoglobin Sodium Potassium Chloride Carbon Dioxide BUN Creatinine Glucose POC Glucose 150 H 161 H 128 H Lactic Acid Calcium Phosphorus Magnesium AST ALT Lactate Dehydrogenase CK-MB (CK-2) C-Reactive Protein NT-Pro-B Natriuret Pep Total Protein Albumin Arterial Blood Glucose Urine WBC (Auto) 12/28/19 12/29/19 12/29/19 23:36 05:21 11:40 WBC RBC Hgb Hct MCHC RDW MCV MCH Lymph % (Auto) [place] % (Auto) [place] # Eos # Lymph # (Auto) [place] # (Auto) Eos # (Auto) Seg Neutrophils % Seg Neuts % (Manual) Baso # (Auto) Lymphocytes % (Manual) Monocytes % (Manual) Eosinophils % (Manual) Basophils % (Manual) Seg Neutrophils # Seg Neutrophils # Man Lymphocytes # (Manual) Monocytes # (Manual) Eosinophils # (Manual) Nucleated RBC % Basophils # (Manual) PT INR APTT Heparin Anti-Xa Level ABG pH POC ABG pO2 ABG pO2 ABG HCO3 ABG O2 Saturation ABG Base Excess POC ABG pCO2 ABG Hemoglobin ABG Oxyhemoglobin ABG Glucose Oxyhemoglobin Sodium Potassium Chloride Carbon Dioxide BUN Creatinine Glucose POC Glucose 137 H 136 H 166 H Lactic Acid Calcium Phosphorus Magnesium AST ALT Lactate Dehydrogenase CK-MB (CK-2) C-Reactive Protein NT-Pro-B Natriuret Pep Total Protein Albumin Arterial Blood Glucose Urine WBC (Auto) 12/29/19 12/29/19 12/29/19 17:23 19:21 23:38 WBC RBC Hgb Hct MCHC RDW MCV MCH Lymph % (Auto) [place] % (Auto) [place] # Eos # Lymph # (Auto) [place] # (Auto) Eos # (Auto) Seg Neutrophils % Seg Neuts % (Manual) Baso # (Auto) Lymphocytes % (Manual) Monocytes % (Manual) Eosinophils % (Manual) Basophils % (Manual) Seg Neutrophils # Seg Neutrophils # Man Lymphocytes # (Manual) Monocytes # (Manual) Eosinophils # (Manual) Nucleated RBC % Basophils # (Manual) PT INR APTT Heparin Anti-Xa Level 0.20 L ABG pH POC ABG pO2 ABG pO2 ABG HCO3 ABG O2 Saturation ABG Base Excess POC ABG pCO2 ABG Hemoglobin ABG Oxyhemoglobin ABG Glucose Oxyhemoglobin Sodium Potassium Chloride Carbon Dioxide BUN Creatinine Glucose POC Glucose 144 H 141 H Lactic Acid Calcium Phosphorus Magnesium AST ALT Lactate Dehydrogenase CK-MB (CK-2) C-Reactive Protein NT-Pro-B Natriuret Pep Total Protein Albumin Arterial Blood Glucose Urine WBC (Auto) 12/30/19 12/30/19 12/30/19 03:58 03:58 04:59 WBC RBC 3.54 L Hgb 9.8 L Hct 30.7 L MCHC RDW 16.8 H MCV MCH Lymph % (Auto) [place] % (Auto) [place] # Eos # Lymph # (Auto) [place] # (Auto) Eos # (Auto) Seg Neutrophils % Seg Neuts % (Manual) Baso # (Auto) Lymphocytes % (Manual) Monocytes % (Manual) Eosinophils % (Manual) Basophils % (Manual) Seg Neutrophils # Seg Neutrophils # Man Lymphocytes # (Manual) Monocytes # (Manual) Eosinophils # (Manual) Nucleated RBC % Basophils # (Manual) PT INR APTT Heparin Anti-Xa Level ABG pH POC ABG pO2 ABG pO2 ABG HCO3 29.8 H ABG O2 Saturation ABG Base Excess 4.8 H POC ABG pCO2 ABG Hemoglobin 11.2 L ABG Oxyhemoglobin ABG Glucose Oxyhemoglobin 93.8 L Sodium Potassium Chloride 97.8 L Carbon Dioxide BUN 26 H Creatinine Glucose 168 H POC Glucose Lactic Acid Calcium Phosphorus Magnesium AST ALT Lactate Dehydrogenase CK-MB (CK-2) C-Reactive Protein NT-Pro-B Natriuret Pep Total Protein Albumin Arterial Blood Glucose Urine WBC (Auto) 12/30/19 12/30/19 12/30/19 05:45 11:34 17:28 WBC RBC Hgb Hct MCHC RDW MCV MCH Lymph % (Auto) [place] % (Auto) [place] # Eos # Lymph # (Auto) [place] # (Auto) Eos # (Auto) Seg Neutrophils % Seg Neuts % (Manual) Baso # (Auto) Lymphocytes % (Manual) Monocytes % (Manual) Eosinophils % (Manual) Basophils % (Manual) Seg Neutrophils # Seg Neutrophils # Man Lymphocytes # (Manual) Monocytes # (Manual) Eosinophils # (Manual) Nucleated RBC % Basophils # (Manual) PT INR APTT Heparin Anti-Xa Level ABG pH POC ABG pO2 ABG pO2 ABG HCO3 ABG O2 Saturation ABG Base Excess POC ABG pCO2 ABG Hemoglobin ABG Oxyhemoglobin ABG Glucose Oxyhemoglobin Sodium Potassium Chloride Carbon Dioxide BUN Creatinine Glucose POC Glucose 163 H 180 H 150 H Lactic Acid Calcium Phosphorus Magnesium AST ALT Lactate Dehydrogenase CK-MB (CK-2) C-Reactive Protein NT-Pro-B Natriuret Pep Total Protein Albumin Arterial Blood Glucose Urine WBC (Auto) 12/30/19 12/31/19 12/31/19 23:43 04:55 05:07 WBC RBC Hgb Hct MCHC RDW MCV MCH Lymph % (Auto) [place] % (Auto) [place] # Eos # Lymph # (Auto) [place] # (Auto) Eos # (Auto) Seg Neutrophils % Seg Neuts % (Manual) Baso # (Auto) Lymphocytes % (Manual) Monocytes % (Manual) Eosinophils % (Manual) Basophils % (Manual) Seg Neutrophils # Seg Neutrophils # Man Lymphocytes # (Manual) Monocytes # (Manual) Eosinophils # (Manual) Nucleated RBC % Basophils # (Manual) PT INR APTT Heparin Anti-Xa Level ABG pH POC ABG pO2 ABG pO2 ABG HCO3 ABG O2 Saturation ABG Base Excess POC ABG pCO2 ABG Hemoglobin ABG Oxyhemoglobin ABG Glucose Oxyhemoglobin Sodium Potassium 5.6 H D Chloride Carbon Dioxide BUN 33 H Creatinine Glucose 131 H POC Glucose 142 H 134 H Lactic Acid Calcium Phosphorus Magnesium AST ALT Lactate Dehydrogenase CK-MB (CK-2) C-Reactive Protein NT-Pro-B Natriuret Pep Total Protein Albumin Arterial Blood Glucose Urine WBC (Auto) 12/31/19 12/31/19 12/31/19 11:30 17:19 17:36 WBC RBC Hgb Hct MCHC RDW MCV MCH Lymph % (Auto) [place] % (Auto) [place] # Eos # Lymph # (Auto) [place] # (Auto) Eos # (Auto) Seg Neutrophils % Seg Neuts % (Manual) Baso # (Auto) Lymphocytes % (Manual) Monocytes % (Manual) Eosinophils % (Manual) Basophils % (Manual) Seg Neutrophils # Seg Neutrophils # Man Lymphocytes # (Manual) Monocytes # (Manual) Eosinophils # (Manual) Nucleated RBC % Basophils # (Manual) PT INR APTT Heparin Anti-Xa Level ABG pH POC ABG pO2 ABG pO2 ABG HCO3 ABG O2 Saturation ABG Base Excess POC ABG pCO2 ABG Hemoglobin ABG Oxyhemoglobin ABG Glucose Oxyhemoglobin Sodium Potassium Chloride Carbon Dioxide BUN 35 H Creatinine Glucose 156 H POC Glucose 158 H 181 H Lactic Acid Calcium Phosphorus Magnesium AST ALT Lactate Dehydrogenase CK-MB (CK-2) C-Reactive Protein NT-Pro-B Natriuret Pep Total Protein Albumin Arterial Blood Glucose Urine WBC (Auto) 12/31/19 12/31/19 12/31/19 18:16 19:41 21:53 WBC RBC Hgb Hct MCHC RDW MCV MCH Lymph % (Auto) [place] % (Auto) [place] # Eos # Lymph # (Auto) [place] # (Auto) Eos # (Auto) Seg Neutrophils % Seg Neuts % (Manual) Baso # (Auto) Lymphocytes % (Manual) Monocytes % (Manual) Eosinophils % (Manual) Basophils % (Manual) Seg Neutrophils # Seg Neutrophils # Man Lymphocytes # (Manual) Monocytes # (Manual) Eosinophils # (Manual) Nucleated RBC % Basophils # (Manual) PT INR APTT Heparin Anti-Xa Level 0.20 L ABG pH POC ABG pO2 ABG pO2 ABG HCO3 ABG O2 Saturation ABG Base Excess POC ABG pCO2 ABG Hemoglobin ABG Oxyhemoglobin ABG Glucose Oxyhemoglobin Sodium Potassium Chloride Carbon Dioxide BUN 34 H Creatinine Glucose 169 H POC Glucose 141 H Lactic Acid Calcium Phosphorus Magnesium AST ALT Lactate Dehydrogenase CK-MB (CK-2) C-Reactive Protein NT-Pro-B Natriuret Pep Total Protein Albumin Arterial Blood Glucose Urine WBC (Auto) 12/31/19 01/01/20 01/01/20 23:51 05:17 10:40 WBC RBC Hgb Hct MCHC RDW MCV MCH Lymph % (Auto) [place] % (Auto) [place] # Eos # Lymph # (Auto) [place] # (Auto) Eos # (Auto) Seg Neutrophils % Seg Neuts % (Manual) Baso # (Auto) Lymphocytes % (Manual) Monocytes % (Manual) Eosinophils % (Manual) Basophils % (Manual) Seg Neutrophils # Seg Neutrophils # Man Lymphocytes # (Manual) Monocytes # (Manual) Eosinophils # (Manual) Nucleated RBC % Basophils # (Manual) PT INR APTT Heparin Anti-Xa Level ABG pH POC ABG pO2 ABG pO2 ABG HCO3 ABG O2 Saturation ABG Base Excess POC ABG pCO2 ABG Hemoglobin ABG Oxyhemoglobin ABG Glucose Oxyhemoglobin Sodium Potassium Chloride Carbon Dioxide BUN 31 H Creatinine 0.7 L Glucose 137 H POC Glucose 131 H 155 H Lactic Acid Calcium Phosphorus Magnesium AST 73 H ALT 97 H Lactate Dehydrogenase CK-MB (CK-2) C-Reactive Protein NT-Pro-B Natriuret Pep 3866 H Total Protein Albumin 2.8 L Arterial Blood Glucose Urine WBC (Auto) 01/01/20 01/01/20 01/01/20 12:26 15:33 17:53 WBC 14.3 H RBC 3.35 L Hgb 9.1 L Hct 28.8 L MCHC RDW 17.0 H MCV MCH 27 L Lymph % (Auto) 7.0 L [place] % (Auto) 7.6 H [place] # Eos # Lymph # (Auto) 1.0 L [place] # (Auto) 1.1 H Eos # (Auto) Seg Neutrophils % 83.3 H Seg Neuts % (Manual) Baso # (Auto) Lymphocytes % (Manual) Monocytes % (Manual) Eosinophils % (Manual) Basophils % (Manual) Seg Neutrophils # 12.0 H Seg Neutrophils # Man Lymphocytes # (Manual) Monocytes # (Manual) Eosinophils # (Manual) Nucleated RBC % Basophils # (Manual) PT INR APTT Heparin Anti-Xa Level ABG pH POC ABG pO2 ABG pO2 ABG HCO3 ABG O2 Saturation ABG Base Excess POC ABG pCO2 ABG Hemoglobin ABG Oxyhemoglobin ABG Glucose Oxyhemoglobin Sodium Potassium Chloride Carbon Dioxide BUN Creatinine Glucose POC Glucose 128 H 128 H Lactic Acid Calcium Phosphorus Magnesium AST ALT Lactate Dehydrogenase CK-MB (CK-2) C-Reactive Protein NT-Pro-B Natriuret Pep Total Protein Albumin Arterial Blood Glucose Urine WBC (Auto) 01/01/20 01/02/20 01/02/20 23:04 05:39 07:00 WBC RBC Hgb Hct MCHC RDW MCV MCH Lymph % (Auto) [place] % (Auto) [place] # Eos # Lymph # (Auto) [place] # (Auto) Eos # (Auto) Seg Neutrophils % Seg Neuts % (Manual) Baso # (Auto) Lymphocytes % (Manual) Monocytes % (Manual) Eosinophils % (Manual) Basophils % (Manual) Seg Neutrophils # Seg Neutrophils # Man Lymphocytes # (Manual) Monocytes # (Manual) Eosinophils # (Manual) Nucleated RBC % Basophils # (Manual) PT INR APTT Heparin Anti-Xa Level 0.13 L ABG pH POC ABG pO2 ABG pO2 ABG HCO3 ABG O2 Saturation ABG Base Excess POC ABG pCO2 ABG Hemoglobin ABG Oxyhemoglobin ABG Glucose Oxyhemoglobin Sodium Potassium Chloride Carbon Dioxide BUN Creatinine Glucose POC Glucose 120 H 169 H Lactic Acid Calcium Phosphorus Magnesium AST ALT Lactate Dehydrogenase CK-MB (CK-2) C-Reactive Protein NT-Pro-B Natriuret Pep Total Protein Albumin Arterial Blood Glucose Urine WBC (Auto) 10/10/20 10/10/20 10/10/20 12:15 14:06 17:58 WBC RBC Hgb Hct MCHC RDW MCV MCH Lymph % (Auto) [place] % (Auto) [place] # Eos # Lymph # (Auto) [place] # (Auto) Eos # (Auto) Seg Neutrophils % Seg Neuts % (Manual) Baso # (Auto) Lymphocytes % (Manual) Monocytes % (Manual) Eosinophils % (Manual) Basophils % (Manual) Seg Neutrophils # Seg Neutrophils # Man Lymphocytes # (Manual) Monocytes # (Manual) Eosinophils # (Manual) Nucleated RBC % Basophils # (Manual) PT INR APTT Heparin Anti-Xa Level < 0.10 L ABG pH POC ABG pO2 ABG pO2 ABG HCO3 ABG O2 Saturation ABG Base Excess POC ABG pCO2 ABG Hemoglobin ABG Oxyhemoglobin ABG Glucose Oxyhemoglobin Sodium Potassium Chloride Carbon Dioxide BUN Creatinine Glucose POC Glucose 190 H 198 H Lactic Acid Calcium Phosphorus Magnesium AST ALT Lactate Dehydrogenase CK-MB (CK-2) C-Reactive Protein NT-Pro-B Natriuret Pep Total Protein Albumin Arterial Blood Glucose Urine WBC (Auto) 01/02/20 01/02/20 01/03/20 21:43 23:33 05:42 WBC RBC Hgb Hct MCHC RDW MCV MCH Lymph % (Auto) [place] % (Auto) [place] # Eos # Lymph # (Auto) [place] # (Auto) Eos # (Auto) Seg Neutrophils % Seg Neuts % (Manual) Baso # (Auto) Lymphocytes % (Manual) Monocytes % (Manual) Eosinophils % (Manual) Basophils % (Manual) Seg Neutrophils # Seg Neutrophils # Man Lymphocytes # (Manual) Monocytes # (Manual) Eosinophils # (Manual) Nucleated RBC % Basophils # (Manual) PT INR APTT Heparin Anti-Xa Level 0.10 L ABG pH POC ABG pO2 ABG pO2 ABG HCO3 ABG O2 Saturation ABG Base Excess POC ABG pCO2 ABG Hemoglobin ABG Oxyhemoglobin ABG Glucose Oxyhemoglobin Sodium Potassium Chloride Carbon Dioxide BUN Creatinine Glucose POC Glucose 180 H 163 H Lactic Acid Calcium Phosphorus Magnesium AST ALT Lactate Dehydrogenase CK-MB (CK-2) C-Reactive Protein NT-Pro-B Natriuret Pep Total Protein Albumin Arterial Blood Glucose Urine WBC (Auto) 01/03/20 01/03/20 01/03/20 06:50 07:25 07:45 WBC 12.1 H RBC 3.35 L Hgb 9.0 L Hct 28.9 L MCHC 31 L RDW 16.6 H MCV MCH 27 L Lymph % (Auto) 13.0 L [place] % (Auto) 8.6 H [place] # Eos # Lymph # (Auto) [place] # (Auto) 1.0 H Eos # (Auto) Seg Neutrophils % 75.9 H Seg Neuts % (Manual) Baso # (Auto) Lymphocytes % (Manual) Monocytes % (Manual) Eosinophils % (Manual) Basophils % (Manual) Seg Neutrophils # 9.2 H Seg Neutrophils # Man Lymphocytes # (Manual) Monocytes # (Manual) Eosinophils # (Manual) Nucleated RBC % Basophils # (Manual) PT INR APTT Heparin Anti-Xa Level 0.29 L ABG pH POC ABG pO2 ABG pO2 ABG HCO3 ABG O2 Saturation ABG Base Excess POC ABG pCO2 ABG Hemoglobin ABG Oxyhemoglobin ABG Glucose Oxyhemoglobin Sodium Potassium 3.3 L D Chloride Carbon Dioxide 35 H D BUN 23 H Creatinine 0.6 L Glucose 149 H POC Glucose Lactic Acid Calcium Phosphorus Magnesium AST ALT 88 H Lactate Dehydrogenase CK-MB (CK-2) C-Reactive Protein NT-Pro-B Natriuret Pep Total Protein 6.2 L Albumin 2.9 L Arterial Blood Glucose Urine WBC (Auto) 01/03/20 01/03/20 01/03/20 12:05 17:42 18:30 WBC RBC Hgb Hct MCHC RDW MCV MCH Lymph % (Auto) [place] % (Auto) [place] # Eos # Lymph # (Auto) [place] # (Auto) Eos # (Auto) Seg Neutrophils % Seg Neuts % (Manual) Baso # (Auto) Lymphocytes % (Manual) Monocytes % (Manual) Eosinophils % (Manual) Basophils % (Manual) Seg Neutrophils # Seg Neutrophils # Man Lymphocytes # (Manual) Monocytes # (Manual) Eosinophils # (Manual) Nucleated RBC % Basophils # (Manual) PT INR APTT Heparin Anti-Xa Level ABG pH POC ABG pO2 ABG pO2 70.7 L ABG HCO3 36.1 H ABG O2 Saturation 94.4 L ABG Base Excess 10.0 H POC ABG pCO2 ABG Hemoglobin 9.7 L ABG Oxyhemoglobin ABG Glucose Oxyhemoglobin 91.8 L Sodium Potassium Chloride Carbon Dioxide BUN Creatinine Glucose POC Glucose 128 H 132 H Lactic Acid Calcium Phosphorus Magnesium AST ALT Lactate Dehydrogenase CK-MB (CK-2) C-Reactive Protein NT-Pro-B Natriuret Pep Total Protein Albumin Arterial Blood Glucose Urine WBC (Auto) 01/04/20 01/04/20 01/04/20 00:10 04:26 05:23 WBC RBC Hgb Hct MCHC RDW MCV MCH Lymph % (Auto) [place] % (Auto) [place] # Eos # Lymph # (Auto) [place] # (Auto) Eos # (Auto) Seg Neutrophils % Seg Neuts % (Manual) Baso # (Auto) Lymphocytes % (Manual) Monocytes % (Manual) Eosinophils % (Manual) Basophils % (Manual) Seg Neutrophils # Seg Neutrophils # Man Lymphocytes # (Manual) Monocytes # (Manual) Eosinophils # (Manual) Nucleated RBC % Basophils # (Manual) PT INR APTT Heparin Anti-Xa Level 0.16 L ABG pH POC ABG pO2 ABG pO2 ABG HCO3 ABG O2 Saturation ABG Base Excess POC ABG pCO2 ABG Hemoglobin ABG Oxyhemoglobin ABG Glucose Oxyhemoglobin Sodium Potassium Chloride Carbon Dioxide BUN Creatinine Glucose POC Glucose 121 H 119 H Lactic Acid Calcium Phosphorus Magnesium AST ALT Lactate Dehydrogenase CK-MB (CK-2) C-Reactive Protein NT-Pro-B Natriuret Pep Total Protein Albumin Arterial Blood Glucose Urine WBC (Auto) 01/04/20 01/04/20 01/04/20 09:50 09:50 12:18 WBC 15.4 H RBC 3.30 L Hgb 8.7 L Hct 28.2 L MCHC 31 L RDW 17.0 H MCV MCH 26 L Lymph % (Auto) [place] % (Auto) 7.6 H [place] # Eos # Lymph # (Auto) [place] # (Auto) 1.2 H Eos # (Auto) Seg Neutrophils % 75.4 H Seg Neuts % (Manual) Baso # (Auto) Lymphocytes % (Manual) Monocytes % (Manual) Eosinophils % (Manual) Basophils % (Manual) Seg Neutrophils # 11.6 H Seg Neutrophils # Man Lymphocytes # (Manual) Monocytes # (Manual) Eosinophils # (Manual) Nucleated RBC % Basophils # (Manual) PT INR APTT Heparin Anti-Xa Level ABG pH POC ABG pO2 ABG pO2 ABG HCO3 ABG O2 Saturation ABG Base Excess POC ABG pCO2 ABG Hemoglobin ABG Oxyhemoglobin ABG Glucose Oxyhemoglobin Sodium 148 H Potassium 3.5 L Chloride Carbon Dioxide 32 H BUN Creatinine 0.6 L Glucose 114 H POC Glucose 111 H Lactic Acid Calcium Phosphorus Magnesium AST ALT 59 H Lactate Dehydrogenase CK-MB (CK-2) C-Reactive Protein NT-Pro-B Natriuret Pep Total Protein Albumin 2.6 L Arterial Blood Glucose Urine WBC (Auto) 01/05/20 01/05/20 01/05/20 04:05 04:05 05:19 WBC 11.7 H RBC 3.50 L Hgb 9.3 L Hct 29.9 L MCHC 31 L RDW 16.6 H MCV MCH 27 L Lymph % (Auto) 13.1 L [place] % (Auto) 9.7 H [place] # Eos # Lymph # (Auto) [place] # (Auto) 1.1 H Eos # (Auto) Seg Neutrophils % 74.0 H Seg Neuts % (Manual) Baso # (Auto) Lymphocytes % (Manual) Monocytes % (Manual) Eosinophils % (Manual) Basophils % (Manual) Seg Neutrophils # 8.6 H Seg Neutrophils # Man Lymphocytes # (Manual) Monocytes # (Manual) Eosinophils # (Manual) Nucleated RBC % Basophils # (Manual) PT INR APTT Heparin Anti-Xa Level ABG pH POC ABG pO2 ABG pO2 ABG HCO3 ABG O2 Saturation ABG Base Excess POC ABG pCO2 ABG Hemoglobin ABG Oxyhemoglobin ABG Glucose Oxyhemoglobin Sodium 151 H Potassium Chloride Carbon Dioxide 34 H BUN Creatinine 0.7 L Glucose POC Glucose 112 H Lactic Acid Calcium Phosphorus Magnesium AST ALT 59 H Lactate Dehydrogenase CK-MB (CK-2) C-Reactive Protein NT-Pro-B Natriuret Pep Total Protein 5.8 L Albumin 2.6 L Arterial Blood Glucose Urine WBC (Auto) 01/05/20 01/06/20 01/06/20 16:04 00:23 04:44 WBC RBC 3.36 L Hgb 8.9 L Hct 28.7 L MCHC 31 L RDW 16.9 H MCV MCH 26 L Lymph % (Auto) [place] % (Auto) 9.4 H [place] # Eos # Lymph # (Auto) [place] # (Auto) Eos # (Auto) Seg Neutrophils % Seg Neuts % (Manual) Baso # (Auto) Lymphocytes % (Manual) Monocytes % (Manual) Eosinophils % (Manual) Basophils % (Manual) Seg Neutrophils # Seg Neutrophils # Man Lymphocytes # (Manual) Monocytes # (Manual) Eosinophils # (Manual) Nucleated RBC % Basophils # (Manual) PT INR APTT Heparin Anti-Xa Level ABG pH POC ABG pO2 ABG pO2 ABG HCO3 ABG O2 Saturation ABG Base Excess POC ABG pCO2 ABG Hemoglobin ABG Oxyhemoglobin ABG Glucose Oxyhemoglobin Sodium 151 H Potassium 3.2 L Chloride Carbon Dioxide 34 H BUN Creatinine 0.6 L Glucose POC Glucose 107 H Lactic Acid Calcium Phosphorus Magnesium AST ALT Lactate Dehydrogenase CK-MB (CK-2) C-Reactive Protein NT-Pro-B Natriuret Pep Total Protein Albumin Arterial Blood Glucose Urine WBC (Auto) 01/06/20 01/06/20 01/06/20 04:44 05:33 12:04 WBC RBC Hgb Hct MCHC RDW MCV MCH Lymph % (Auto) [place] % (Auto) [place] # Eos # Lymph # (Auto) [place] # (Auto) Eos # (Auto) Seg Neutrophils % Seg Neuts % (Manual) Baso # (Auto) Lymphocytes % (Manual) Monocytes % (Manual) Eosinophils % (Manual) Basophils % (Manual) Seg Neutrophils # Seg Neutrophils # Man Lymphocytes # (Manual) Monocytes # (Manual) Eosinophils # (Manual) Nucleated RBC % Basophils # (Manual) PT INR APTT Heparin Anti-Xa Level ABG pH POC ABG pO2 ABG pO2 ABG HCO3 ABG O2 Saturation ABG Base Excess POC ABG pCO2 ABG Hemoglobin ABG Oxyhemoglobin ABG Glucose Oxyhemoglobin Sodium 151 H Potassium 3.4 L Chloride Carbon Dioxide 33 H BUN Creatinine 0.6 L Glucose 118 H POC Glucose 118 H 123 H Lactic Acid Calcium Phosphorus Magnesium AST ALT Lactate Dehydrogenase CK-MB (CK-2) C-Reactive Protein NT-Pro-B Natriuret Pep Total Protein 6.2 L Albumin 2.6 L Arterial Blood Glucose Urine WBC (Auto) 01/06/20 01/07/20 01/07/20 17:54 00:06 04:10 WBC RBC 3.42 L Hgb 8.9 L Hct 29.0 L MCHC 31 L RDW 17.1 H MCV MCH 26 L Lymph % (Auto) [place] % (Auto) 8.4 H [place] # Eos # Lymph # (Auto) [place] # (Auto) Eos # (Auto) Seg Neutrophils % Seg Neuts % (Manual) Baso # (Auto) Lymphocytes % (Manual) Monocytes % (Manual) Eosinophils % (Manual) Basophils % (Manual) Seg Neutrophils # Seg Neutrophils # Man Lymphocytes # (Manual) Monocytes # (Manual) Eosinophils # (Manual) Nucleated RBC % Basophils # (Manual) PT INR APTT Heparin Anti-Xa Level ABG pH POC ABG pO2 ABG pO2 ABG HCO3 ABG O2 Saturation ABG Base Excess POC ABG pCO2 ABG Hemoglobin ABG Oxyhemoglobin ABG Glucose Oxyhemoglobin Sodium Potassium Chloride Carbon Dioxide BUN Creatinine Glucose POC Glucose 112 H 126 H Lactic Acid Calcium Phosphorus Magnesium AST ALT Lactate Dehydrogenase CK-MB (CK-2) C-Reactive Protein NT-Pro-B Natriuret Pep Total Protein Albumin Arterial Blood Glucose Urine WBC (Auto) 01/07/20 01/07/20 01/07/20 04:10 05:59 12:27 WBC RBC Hgb Hct MCHC RDW MCV MCH Lymph % (Auto) [place] % (Auto) [place] # Eos # Lymph # (Auto) [place] # (Auto) Eos # (Auto) Seg Neutrophils % Seg Neuts % (Manual) Baso # (Auto) Lymphocytes % (Manual) Monocytes % (Manual) Eosinophils % (Manual) Basophils % (Manual) Seg Neutrophils # Seg Neutrophils # Man Lymphocytes # (Manual) Monocytes # (Manual) Eosinophils # (Manual) Nucleated RBC % Basophils # (Manual) PT INR APTT Heparin Anti-Xa Level ABG pH POC ABG pO2 ABG pO2 ABG HCO3 ABG O2 Saturation ABG Base Excess POC ABG pCO2 ABG Hemoglobin ABG Oxyhemoglobin ABG Glucose Oxyhemoglobin Sodium 153 H Potassium 3.5 L Chloride Carbon Dioxide 34 H BUN Creatinine 0.6 L Glucose 121 H POC Glucose 121 H 126 H Lactic Acid Calcium Phosphorus Magnesium AST ALT Lactate Dehydrogenase CK-MB (CK-2) C-Reactive Protein NT-Pro-B Natriuret Pep Total Protein 5.9 L Albumin 2.4 L Arterial Blood Glucose Urine WBC (Auto) 01/07/20 01/08/20 01/08/20 18:12 00:03 05:41 WBC RBC Hgb Hct MCHC RDW MCV MCH Lymph % (Auto) [place] % (Auto) [place] # Eos # Lymph # (Auto) [place] # (Auto) Eos # (Auto) Seg Neutrophils % Seg Neuts % (Manual) Baso # (Auto) Lymphocytes % (Manual) Monocytes % (Manual) Eosinophils % (Manual) Basophils % (Manual) Seg Neutrophils # Seg Neutrophils # Man Lymphocytes # (Manual) Monocytes # (Manual) Eosinophils # (Manual) Nucleated RBC % Basophils # (Manual) PT INR APTT Heparin Anti-Xa Level ABG pH POC ABG pO2 ABG pO2 ABG HCO3 ABG O2 Saturation ABG Base Excess POC ABG pCO2 ABG Hemoglobin ABG Oxyhemoglobin ABG Glucose Oxyhemoglobin Sodium Potassium Chloride Carbon Dioxide BUN Creatinine Glucose POC Glucose 124 H 130 H 138 H Lactic Acid Calcium Phosphorus Magnesium AST ALT Lactate Dehydrogenase CK-MB (CK-2) C-Reactive Protein NT-Pro-B Natriuret Pep Total Protein Albumin Arterial Blood Glucose Urine WBC (Auto) 01/08/20 01/08/20 01/08/20 09:28 11:42 18:21 WBC RBC Hgb Hct MCHC RDW MCV MCH Lymph % (Auto) [place] % (Auto) [place] [place] # Eos # Lymph # (Auto) [place] # (Auto) Eos # (Auto) Seg Neutrophils % Seg Neuts % (Manual) Baso # (Auto) Lymphocytes % (Manual) Monocytes % (Manual) Eosinophils % (Manual) Basophils % (Manual) Seg Neutrophils # Seg Neutrophils # Man Lymphocytes # (Manual) Monocytes # (Manual) Eosinophils # (Manual) Nucleated RBC % Basophils # (Manual) PT INR APTT Heparin Anti-Xa Level ABG pH POC ABG pO2 ABG pO2 ABG HCO3 ABG O2 Saturation ABG Base Excess POC ABG pCO2 ABG Hemoglobin ABG Oxyhemoglobin ABG Glucose Oxyhemoglobin Sodium Potassium Chloride Carbon Dioxide BUN Creatinine Glucose POC Glucose 181 H 150 H 129 H Lactic Acid Calcium Phosphorus Magnesium AST ALT Lactate Dehydrogenase CK-MB (CK-2) C-Reactive Protein NT-Pro-B Natriuret Pep Total Protein Albumin Arterial Blood Glucose Urine WBC (Auto) 01/08/20 01/08/20 01/09/20 19:25 23:55 04:11 WBC RBC 3.43 L Hgb 8.9 L Hct 28.7 L MCHC 31 L RDW 17.6 H MCV MCH 26 L Lymph % (Auto) [place] % (Auto) 8.6 H [place] # Eos # Lymph # (Auto) [place] # (Auto) Eos # (Auto) Seg Neutrophils % Seg Neuts % (Manual) Baso # (Auto) Lymphocytes % (Manual) Monocytes % (Manual) Eosinophils % (Manual) Basophils % (Manual) Seg Neutrophils # Seg Neutrophils # Man Lymphocytes # (Manual) Monocytes # (Manual) Eosinophils # (Manual) Nucleated RBC % Basophils # (Manual) PT INR APTT Heparin Anti-Xa Level ABG pH POC ABG pO2 ABG pO2 ABG HCO3 ABG O2 Saturation ABG Base Excess POC ABG pCO2 ABG Hemoglobin ABG Oxyhemoglobin ABG Glucose Oxyhemoglobin Sodium Potassium Chloride Carbon Dioxide BUN Creatinine 0.7 L Glucose 117 H POC Glucose 132 H Lactic Acid Calcium Phosphorus Magnesium AST ALT Lactate Dehydrogenase CK-MB (CK-2) C-Reactive Protein NT-Pro-B Natriuret Pep Total Protein Albumin Arterial Blood Glucose Urine WBC (Auto) 01/09/20 01/09/20 01/09/20 04:11 05:38 22:58 WBC RBC Hgb Hct MCHC RDW MCV MCH Lymph % (Auto) [place] % (Auto) [place] # Eos # Lymph # (Auto) [place] # (Auto) Eos # (Auto) Seg Neutrophils % Seg Neuts % (Manual) Baso # (Auto) Lymphocytes % (Manual) Monocytes % (Manual) Eosinophils % (Manual) Basophils % (Manual) Seg Neutrophils # Seg Neutrophils # Man Lymphocytes # (Manual) Monocytes # (Manual) Eosinophils # (Manual) Nucleated RBC % Basophils # (Manual) PT INR APTT Heparin Anti-Xa Level ABG pH POC ABG pO2 ABG pO2 ABG HCO3 ABG O2 Saturation ABG Base Excess POC ABG pCO2 ABG Hemoglobin ABG Oxyhemoglobin ABG Glucose Oxyhemoglobin Sodium 147 H Potassium 3.3 L D Chloride Carbon Dioxide 32 H BUN Creatinine 0.6 L Glucose 106 H POC Glucose 107 H 113 H Lactic Acid Calcium Phosphorus Magnesium AST ALT Lactate Dehydrogenase CK-MB (CK-2) C-Reactive Protein NT-Pro-B Natriuret Pep Total Protein Albumin Arterial Blood Glucose Urine WBC (Auto) 01/10/20 01/10/20 01/10/20 04:05 11:36 17:54 WBC RBC Hgb Hct MCHC RDW MCV MCH Lymph % (Auto) [place] % (Auto) [place] # Eos # Lymph # (Auto) [place] # (Auto) Eos # (Auto) Seg Neutrophils % Seg Neuts % (Manual) Baso # (Auto) Lymphocytes % (Manual) Monocytes % (Manual) Eosinophils % (Manual) Basophils % (Manual) Seg Neutrophils # Seg Neutrophils # Man Lymphocytes # (Manual) Monocytes # (Manual) Eosinophils # (Manual) Nucleated RBC % Basophils # (Manual) PT INR APTT Heparin Anti-Xa Level ABG pH POC ABG pO2 ABG pO2 ABG HCO3 ABG O2 Saturation ABG Base Excess POC ABG pCO2 ABG Hemoglobin ABG Oxyhemoglobin ABG Glucose Oxyhemoglobin Sodium Potassium Chloride Carbon Dioxide BUN Creatinine 0.7 L Glucose 110 H POC Glucose 129 H 117 H Lactic Acid Calcium Phosphorus Magnesium AST ALT Lactate Dehydrogenase CK-MB (CK-2) C-Reactive Protein NT-Pro-B Natriuret Pep Total Protein Albumin Arterial Blood Glucose Urine WBC (Auto) 01/10/20 01/11/20 01/11/20 23:52 03:19 12:09 WBC RBC Hgb Hct MCHC RDW MCV MCH Lymph % (Auto) [place] % (Auto) [place] # Eos # Lymph # (Auto) [place] # (Auto) Eos # (Auto) Seg Neutrophils % Seg Neuts % (Manual) Baso # (Auto) Lymphocytes % (Manual) Monocytes % (Manual) Eosinophils % (Manual) Basophils % (Manual) Seg Neutrophils # Seg Neutrophils # Man Lymphocytes # (Manual) Monocytes # (Manual) Eosinophils # (Manual) Nucleated RBC % Basophils # (Manual) PT INR APTT Heparin Anti-Xa Level ABG pH POC ABG pO2 ABG pO2 ABG HCO3 ABG O2 Saturation ABG Base Excess POC ABG pCO2 ABG Hemoglobin ABG Oxyhemoglobin ABG Glucose Oxyhemoglobin Sodium Potassium Chloride Carbon Dioxide BUN Creatinine Glucose POC Glucose 117 H 136 H 115 H Lactic Acid Calcium Phosphorus Magnesium AST ALT Lactate Dehydrogenase CK-MB (CK-2) C-Reactive Protein NT-Pro-B Natriuret Pep Total Protein Albumin Arterial Blood Glucose Urine WBC (Auto) 01/11/20 01/11/20 01/12/20 18:27 23:28 00:23 WBC RBC Hgb 9.8 L Hct 31.6 L MCHC 31 L RDW 17.8 H MCV 83 L MCH 26 L Lymph % (Auto) [place] % (Auto) 8.0 H [place] # Eos # Lymph # (Auto) [place] # (Auto) Eos # (Auto) Seg Neutrophils % Seg Neuts % (Manual) Baso # (Auto) Lymphocytes % (Manual) Monocytes % (Manual) Eosinophils % (Manual) Basophils % (Manual) Seg Neutrophils # Seg Neutrophils # Man Lymphocytes # (Manual) Monocytes # (Manual) Eosinophils # (Manual) Nucleated RBC % Basophils # (Manual) PT INR APTT Heparin Anti-Xa Level ABG pH POC ABG pO2 ABG pO2 ABG HCO3 ABG O2 Saturation ABG Base Excess POC ABG pCO2 ABG Hemoglobin ABG Oxyhemoglobin ABG Glucose Oxyhemoglobin Sodium Potassium Chloride Carbon Dioxide BUN Creatinine Glucose POC Glucose 118 H 122 H Lactic Acid Calcium Phosphorus Magnesium AST ALT Lactate Dehydrogenase CK-MB (CK-2) C-Reactive Protein NT-Pro-B Natriuret Pep Total Protein Albumin Arterial Blood Glucose Urine WBC (Auto) 01/12/20 01/12/20 01/12/20 00:23 04:18 04:18 WBC RBC Hgb 9.6 L Hct 30.9 L MCHC 31 L RDW 17.3 H MCV 81 L MCH 25 L Lymph % (Auto) [place] % (Auto) [place] # Eos # Lymph # (Auto) [place] # (Auto) Eos # (Auto) Seg Neutrophils % Seg Neuts % (Manual) Baso # (Auto) Lymphocytes % (Manual) Monocytes % (Manual) Eosinophils % (Manual) Basophils % (Manual) Seg Neutrophils # Seg Neutrophils # Man Lymphocytes # (Manual) Monocytes # (Manual) Eosinophils # (Manual) Nucleated RBC % Basophils # (Manual) PT INR APTT Heparin Anti-Xa Level ABG pH POC ABG pO2 ABG pO2 ABG HCO3 ABG O2 Saturation ABG Base Excess POC ABG pCO2 ABG Hemoglobin ABG Oxyhemoglobin ABG Glucose Oxyhemoglobin Sodium Potassium Chloride Carbon Dioxide BUN Creatinine 0.7 L 0.7 L Glucose 111 H 108 H POC Glucose Lactic Acid Calcium Phosphorus Magnesium AST ALT Lactate Dehydrogenase CK-MB (CK-2) C-Reactive Protein NT-Pro-B Natriuret Pep Total Protein Albumin 2.6 L Arterial Blood Glucose Urine WBC (Auto) 01/12/20 01/12/20 01/12/20 06:03 12:27 13:58 WBC RBC Hgb Hct MCHC RDW MCV MCH Lymph % (Auto) [place] % (Auto) [place] # Eos # Lymph # (Auto) [place] # (Auto) Eos # (Auto) Seg Neutrophils % Seg Neuts % (Manual) Baso # (Auto) Lymphocytes % (Manual) Monocytes % (Manual) Eosinophils % (Manual) Basophils % (Manual) Seg Neutrophils # Seg Neutrophils # Man Lymphocytes # (Manual) Monocytes # (Manual) Eosinophils # (Manual) Nucleated RBC % Basophils # (Manual) PT INR APTT Heparin Anti-Xa Level ABG pH 7.453 H POC ABG pO2 76.6 L ABG pO2 ABG HCO3 ABG O2 Saturation ABG Base Excess POC ABG pCO2 ABG Hemoglobin 10.3 L ABG Oxyhemoglobin ABG Glucose 99 H Oxyhemoglobin Sodium Potassium Chloride Carbon Dioxide BUN Creatinine Glucose POC Glucose 128 H 121 H Lactic Acid Calcium Phosphorus Magnesium AST ALT Lactate Dehydrogenase CK-MB (CK-2) C-Reactive Protein NT-Pro-B Natriuret Pep Total Protein Albumin Arterial Blood Glucose 99 H Urine WBC (Auto) 01/12/20 01/13/20 01/13/20 18:24 12:01 17:46 WBC RBC Hgb Hct MCHC RDW MCV MCH Lymph % (Auto) [place] % (Auto) [place] # Eos # Lymph # (Auto) [place] # (Auto) Eos # (Auto) Seg Neutrophils % Seg Neuts % (Manual) Baso # (Auto) Lymphocytes % (Manual) Monocytes % (Manual) Eosinophils % (Manual) Basophils % (Manual) Seg Neutrophils # Seg Neutrophils # Man Lymphocytes # (Manual) Monocytes # (Manual) Eosinophils # (Manual) Nucleated RBC % Basophils # (Manual) PT INR APTT Heparin Anti-Xa Level ABG pH POC ABG pO2 ABG pO2 ABG HCO3 ABG O2 Saturation ABG Base Excess POC ABG pCO2 ABG Hemoglobin ABG Oxyhemoglobin ABG Glucose Oxyhemoglobin Sodium Potassium Chloride Carbon Dioxide BUN Creatinine Glucose POC Glucose 119 H 107 H 124 H Lactic Acid Calcium Phosphorus Magnesium AST ALT Lactate Dehydrogenase CK-MB (CK-2) C-Reactive Protein NT-Pro-B Natriuret Pep Total Protein Albumin Arterial Blood Glucose Urine WBC (Auto) 01/13/20 01/14/20 01/14/20 20:40 00:10 05:33 WBC RBC Hgb Hct MCHC RDW MCV MCH Lymph % (Auto) [place] % (Auto) [place] # Eos # Lymph # (Auto) [place] # (Auto) Eos # (Auto) Seg Neutrophils % Seg Neuts % (Manual) Baso # (Auto) Lymphocytes % (Manual) Monocytes % (Manual) Eosinophils % (Manual) Basophils % (Manual) Seg Neutrophils # Seg Neutrophils # Man Lymphocytes # (Manual) Monocytes # (Manual) Eosinophils # (Manual) Nucleated RBC % Basophils # (Manual) PT INR APTT Heparin Anti-Xa Level ABG pH POC ABG pO2 ABG pO2 65.3 L ABG HCO3 31.8 H ABG O2 Saturation 93.5 L ABG Base Excess 6.7 H POC ABG pCO2 ABG Hemoglobin 13.3 L ABG Oxyhemoglobin ABG Glucose Oxyhemoglobin 90.9 L Sodium Potassium Chloride Carbon Dioxide BUN Creatinine Glucose POC Glucose 111 H 111 H Lactic Acid Calcium Phosphorus Magnesium AST ALT Lactate Dehydrogenase CK-MB (CK-2) C-Reactive Protein NT-Pro-B Natriuret Pep Total Protein Albumin Arterial Blood Glucose Urine WBC (Auto) 01/14/20 01/14/20 01/14/20 12:10 16:14 16:14 WBC RBC Hgb 10.6 L Hct 34.2 L MCHC 31 L RDW 18.3 H MCV 83 L MCH 26 L Lymph % (Auto) [place] % (Auto) 7.4 H [place] # Eos # Lymph # (Auto) [place] # (Auto) Eos # (Auto) Seg Neutrophils % 71.9 H Seg Neuts % (Manual) Baso # (Auto) Lymphocytes % (Manual) Monocytes % (Manual) Eosinophils % (Manual) Basophils % (Manual) Seg Neutrophils # Seg Neutrophils # Man Lymphocytes # (Manual) Monocytes # (Manual) Eosinophils # (Manual) Nucleated RBC % Basophils # (Manual) PT INR APTT Heparin Anti-Xa Level ABG pH POC ABG pO2 ABG pO2 ABG HCO3 ABG O2 Saturation ABG Base Excess POC ABG pCO2 ABG Hemoglobin ABG Oxyhemoglobin ABG Glucose Oxyhemoglobin Sodium Potassium Chloride Carbon Dioxide 31 H BUN Creatinine 0.6 L Glucose 131 H POC Glucose 139 H Lactic Acid Calcium Phosphorus Magnesium AST ALT Lactate Dehydrogenase CK-MB (CK-2) C-Reactive Protein NT-Pro-B Natriuret Pep Total Protein Albumin Arterial Blood Glucose Urine WBC (Auto) 01/14/20 01/15/20 01/15/20 18:05 00:52 05:35 WBC RBC Hgb Hct MCHC RDW MCV MCH Lymph % (Auto) [place] % (Auto) [place] # Eos # Lymph # (Auto) [place] # (Auto) Eos # (Auto) Seg Neutrophils % Seg Neuts % (Manual) Baso # (Auto) Lymphocytes % (Manual) Monocytes % (Manual) Eosinophils % (Manual) Basophils % (Manual) Seg Neutrophils # Seg Neutrophils # Man Lymphocytes # (Manual) Monocytes # (Manual) Eosinophils # (Manual) Nucleated RBC % Basophils # (Manual) PT INR APTT Heparin Anti-Xa Level ABG pH POC ABG pO2 ABG pO2 ABG HCO3 ABG O2 Saturation ABG Base Excess POC ABG pCO2 ABG Hemoglobin ABG Oxyhemoglobin ABG Glucose Oxyhemoglobin Sodium Potassium Chloride Carbon Dioxide BUN Creatinine Glucose POC Glucose 147 H 140 H 159 H Lactic Acid Calcium Phosphorus Magnesium AST ALT Lactate Dehydrogenase CK-MB (CK-2) C-Reactive Protein NT-Pro-B Natriuret Pep Total Protein Albumin Arterial Blood Glucose Urine WBC (Auto) 01/15/20 01/15/20 01/16/20 12:52 17:43 00:32 WBC RBC Hgb Hct MCHC RDW MCV MCH Lymph % (Auto) [place] % (Auto) [place] # Eos # Lymph # (Auto) [place] # (Auto) Eos # (Auto) Seg Neutrophils % Seg Neuts % (Manual) Baso # (Auto) Lymphocytes % (Manual) Monocytes % (Manual) Eosinophils % (Manual) Basophils % (Manual) Seg Neutrophils # Seg Neutrophils # Man Lymphocytes # (Manual) Monocytes # (Manual) Eosinophils # (Manual) Nucleated RBC % Basophils # (Manual) PT INR APTT Heparin Anti-Xa Level ABG pH POC ABG pO2 ABG pO2 ABG HCO3 ABG O2 Saturation ABG Base Excess POC ABG pCO2 ABG Hemoglobin ABG Oxyhemoglobin ABG Glucose Oxyhemoglobin Sodium Potassium Chloride Carbon Dioxide BUN Creatinine Glucose POC Glucose 164 H 167 H 153 H Lactic Acid Calcium Phosphorus Magnesium AST ALT Lactate Dehydrogenase CK-MB (CK-2) C-Reactive Protein NT-Pro-B Natriuret Pep Total Protein Albumin Arterial Blood Glucose Urine WBC (Auto) 01/16/20 01/16/20 01/17/20 05:46 11:48 06:38 WBC RBC Hgb Hct MCHC RDW MCV MCH Lymph % (Auto) [place] % (Auto) [place] # Eos # Lymph # (Auto) [place] # (Auto) Eos # (Auto) Seg Neutrophils % Seg Neuts % (Manual) Baso # (Auto) Lymphocytes % (Manual) Monocytes % (Manual) Eosinophils % (Manual) Basophils % (Manual) Seg Neutrophils # Seg Neutrophils # Man Lymphocytes # (Manual) Monocytes # (Manual) Eosinophils # (Manual) Nucleated RBC % Basophils # (Manual) PT INR APTT Heparin Anti-Xa Level ABG pH POC ABG pO2 ABG pO2 ABG HCO3 ABG O2 Saturation ABG Base Excess POC ABG pCO2 ABG Hemoglobin ABG Oxyhemoglobin ABG Glucose Oxyhemoglobin Sodium Potassium Chloride Carbon Dioxide BUN Creatinine Glucose POC Glucose 163 H 155 H 116 H Lactic Acid Calcium Phosphorus Magnesium AST ALT Lactate Dehydrogenase CK-MB (CK-2) C-Reactive Protein NT-Pro-B Natriuret Pep Total Protein Albumin Arterial Blood Glucose Urine WBC (Auto) 01/17/20 01/17/20 01/18/20 11:36 17:43 00:12 WBC RBC Hgb Hct MCHC RDW MCV MCH Lymph % (Auto) [place] % (Auto) [place] # Eos # Lymph # (Auto) [place] # (Auto) Eos # (Auto) Seg Neutrophils % Seg Neuts % (Manual) Baso # (Auto) Lymphocytes % (Manual) Monocytes % (Manual) Eosinophils % (Manual) Basophils % (Manual) Seg Neutrophils # Seg Neutrophils # Man Lymphocytes # (Manual) Monocytes # (Manual) Eosinophils # (Manual) Nucleated RBC % Basophils # (Manual) PT INR APTT Heparin Anti-Xa Level ABG pH POC ABG pO2 ABG pO2 ABG HCO3 ABG O2 Saturation ABG Base Excess POC ABG pCO2 ABG Hemoglobin ABG Oxyhemoglobin ABG Glucose Oxyhemoglobin Sodium Potassium Chloride Carbon Dioxide BUN Creatinine Glucose POC Glucose 110 H 134 H 108 H Lactic Acid Calcium Phosphorus Magnesium AST ALT Lactate Dehydrogenase CK-MB (CK-2) C-Reactive Protein NT-Pro-B Natriuret Pep Total Protein Albumin Arterial Blood Glucose Urine WBC (Auto) 01/18/20 01/18/20 01/18/20 05:37 06:46 06:46 WBC RBC Hgb 10.1 L Hct 32.2 L MCHC 31 L RDW 18.1 H MCV 81 L MCH 25 L Lymph % (Auto) [place] % (Auto) [place] # Eos # Lymph # (Auto) [place] # (Auto) Eos # (Auto) Seg Neutrophils % 71.9 H Seg Neuts % (Manual) Baso # (Auto) Lymphocytes % (Manual) Monocytes % (Manual) Eosinophils % (Manual) Basophils % (Manual) Seg Neutrophils # Seg Neutrophils # Man Lymphocytes # (Manual) Monocytes # (Manual) Eosinophils # (Manual) Nucleated RBC % Basophils # (Manual) PT INR APTT Heparin Anti-Xa Level ABG pH POC ABG pO2 ABG pO2 ABG HCO3 ABG O2 Saturation ABG Base Excess POC ABG pCO2 ABG Hemoglobin ABG Oxyhemoglobin ABG Glucose Oxyhemoglobin Sodium Potassium Chloride Carbon Dioxide BUN Creatinine 0.7 L Glucose 155 H POC Glucose 168 H Lactic Acid Calcium Phosphorus Magnesium AST ALT Lactate Dehydrogenase CK-MB (CK-2) C-Reactive Protein NT-Pro-B Natriuret Pep Total Protein Albumin Arterial Blood Glucose Urine WBC (Auto) 01/18/20 01/18/20 01/18/20 12:05 17:14 23:28 WBC RBC Hgb Hct MCHC RDW MCV MCH Lymph % (Auto) [place] % (Auto) [place] # Eos # Lymph # (Auto) [place] # (Auto) Eos # (Auto) Seg Neutrophils % Seg Neuts % (Manual) Baso # (Auto) Lymphocytes % (Manual) Monocytes % (Manual) Eosinophils % (Manual) Basophils % (Manual) Seg Neutrophils # Seg Neutrophils # Man Lymphocytes # (Manual) Monocytes # (Manual) Eosinophils # (Manual) Nucleated RBC % Basophils # (Manual) PT INR APTT Heparin Anti-Xa Level ABG pH POC ABG pO2 ABG pO2 ABG HCO3 ABG O2 Saturation ABG Base Excess POC ABG pCO2 ABG Hemoglobin ABG Oxyhemoglobin ABG Glucose Oxyhemoglobin Sodium Potassium Chloride Carbon Dioxide BUN Creatinine Glucose POC Glucose 128 H 126 H 128 H Lactic Acid Calcium Phosphorus Magnesium AST ALT Lactate Dehydrogenase CK-MB (CK-2) C-Reactive Protein NT-Pro-B Natriuret Pep Total Protein Albumin Arterial Blood Glucose Urine WBC (Auto) 01/19/20 01/19/20 01/19/20 05:39 12:33 17:36 WBC RBC Hgb Hct MCHC RDW MCV MCH Lymph % (Auto) [place] % (Auto) [place] # Eos # Lymph # (Auto) [place] # (Auto) Eos # (Auto) Seg Neutrophils % Seg Neuts % (Manual) Baso # (Auto) Lymphocytes % (Manual) Monocytes % (Manual) Eosinophils % (Manual) Basophils % (Manual) Seg Neutrophils # Seg Neutrophils # Man Lymphocytes # (Manual) Monocytes # (Manual) Eosinophils # (Manual) Nucleated RBC % Basophils # (Manual) PT INR APTT Heparin Anti-Xa Level ABG pH POC ABG pO2 ABG pO2 ABG HCO3 ABG O2 Saturation ABG Base Excess POC ABG pCO2 ABG Hemoglobin ABG Oxyhemoglobin ABG Glucose Oxyhemoglobin Sodium Potassium Chloride Carbon Dioxide BUN Creatinine Glucose POC Glucose 164 H 171 H 152 H Lactic Acid Calcium Phosphorus Magnesium AST ALT Lactate Dehydrogenase CK-MB (CK-2) C-Reactive Protein NT-Pro-B Natriuret Pep Total Protein Albumin Arterial Blood Glucose Urine WBC (Auto) 01/20/20 01/20/20 01/20/20 00:12 05:20 05:35 WBC RBC Hgb 9.2 L Hct 29.4 L MCHC 31 L RDW 17.9 H MCV 81 L MCH 25 L Lymph % (Auto) [place] % (Auto) [place] # Eos # Lymph # (Auto) [place] # (Auto) Eos # (Auto) Seg Neutrophils % Seg Neuts % (Manual) Baso # (Auto) Lymphocytes % (Manual) Monocytes % (Manual) Eosinophils % (Manual) Basophils % (Manual) Seg Neutrophils # Seg Neutrophils # Man Lymphocytes # (Manual) Monocytes # (Manual) Eosinophils # (Manual) Nucleated RBC % Basophils # (Manual) PT INR APTT Heparin Anti-Xa Level ABG pH POC ABG pO2 ABG pO2 ABG HCO3 ABG O2 Saturation ABG Base Excess POC ABG pCO2 ABG Hemoglobin ABG Oxyhemoglobin ABG Glucose Oxyhemoglobin Sodium Potassium Chloride Carbon Dioxide BUN Creatinine Glucose POC Glucose 120 H 136 H Lactic Acid Calcium Phosphorus Magnesium AST ALT Lactate Dehydrogenase CK-MB (CK-2) C-Reactive Protein NT-Pro-B Natriuret Pep Total Protein Albumin Arterial Blood Glucose Urine WBC (Auto) 01/20/20 01/20/20 01/20/20 05:40 11:58 14:55 WBC RBC Hgb 9.0 L Hct 28.3 L MCHC RDW MCV MCH Lymph % (Auto) [place] % (Auto) [place] # Eos # Lymph # (Auto) [place] # (Auto) Eos # (Auto) Seg Neutrophils % Seg Neuts % (Manual) Baso # (Auto) Lymphocytes % (Manual) Monocytes % (Manual) Eosinophils % (Manual) Basophils % (Manual) Seg Neutrophils # Seg Neutrophils # Man Lymphocytes # (Manual) Monocytes # (Manual) Eosinophils # (Manual) Nucleated RBC % Basophils # (Manual) PT INR APTT Heparin Anti-Xa Level ABG pH POC ABG pO2 ABG pO2 ABG HCO3 ABG O2 Saturation ABG Base Excess POC ABG pCO2 ABG Hemoglobin ABG Oxyhemoglobin ABG Glucose Oxyhemoglobin Sodium Potassium Chloride Carbon Dioxide 32 H BUN 22 H Creatinine 0.7 L Glucose 128 H POC Glucose 152 H Lactic Acid Calcium Phosphorus Magnesium AST ALT Lactate Dehydrogenase CK-MB (CK-2) C-Reactive Protein NT-Pro-B Natriuret Pep Total Protein Albumin Arterial Blood Glucose Urine WBC (Auto) 01/20/20 01/20/20 01/20/20 14:55 18:14 21:35 WBC RBC Hgb Hct MCHC RDW MCV MCH Lymph % (Auto) [place] % (Auto) [place] # Eos # Lymph # (Auto) [place] # (Auto) Eos # (Auto) Seg Neutrophils % Seg Neuts % (Manual) Baso # (Auto) Lymphocytes % (Manual) Monocytes % (Manual) Eosinophils % (Manual) Basophils % (Manual) Seg Neutrophils # Seg Neutrophils # Man Lymphocytes # (Manual) Monocytes # (Manual) Eosinophils # (Manual) Nucleated RBC % Basophils # (Manual) PT 20.4 H INR 1.72 H APTT 40.6 H Heparin Anti-Xa Level > 2.00 H ABG pH POC ABG pO2 ABG pO2 ABG HCO3 ABG O2 Saturation ABG Base Excess POC ABG pCO2 ABG Hemoglobin ABG Oxyhemoglobin ABG Glucose Oxyhemoglobin Sodium Potassium Chloride Carbon Dioxide BUN Creatinine Glucose POC Glucose 150 H Lactic Acid Calcium Phosphorus Magnesium AST ALT Lactate Dehydrogenase CK-MB (CK-2) C-Reactive Protein NT-Pro-B Natriuret Pep Total Protein Albumin Arterial Blood Glucose Urine WBC (Auto) 01/21/20 01/21/20 01/21/20 00:30 05:47 05:59 WBC RBC Hgb Hct MCHC RDW MCV MCH Lymph % (Auto) [place] % (Auto) [place] # Eos # Lymph # (Auto) [place] # (Auto) Eos # (Auto) Seg Neutrophils % Seg Neuts % (Manual) Baso # (Auto) Lymphocytes % (Manual) Monocytes % (Manual) Eosinophils % (Manual) Basophils % (Manual) Seg Neutrophils # Seg Neutrophils # Man Lymphocytes # (Manual) Monocytes # (Manual) Eosinophils # (Manual) Nucleated RBC % Basophils # (Manual) PT INR APTT Heparin Anti-Xa Level 1.93 H ABG pH POC ABG pO2 ABG pO2 ABG HCO3 ABG O2 Saturation ABG Base Excess POC ABG pCO2 ABG Hemoglobin ABG Oxyhemoglobin ABG Glucose Oxyhemoglobin Sodium Potassium Chloride Carbon Dioxide BUN Creatinine Glucose POC Glucose 126 H 148 H Lactic Acid Calcium Phosphorus Magnesium AST ALT Lactate Dehydrogenase CK-MB (CK-2) C-Reactive Protein NT-Pro-B Natriuret Pep Total Protein Albumin Arterial Blood Glucose Urine WBC (Auto) 01/21/20 01/21/20 01/21/20 12:32 18:20 23:54 WBC RBC Hgb Hct MCHC RDW MCV MCH Lymph % (Auto) [place] % (Auto) [place] # Eos # Lymph # (Auto) [place] # (Auto) Eos # (Auto) Seg Neutrophils % Seg Neuts % (Manual) Baso # (Auto) Lymphocytes % (Manual) Monocytes % (Manual) Eosinophils % (Manual) Basophils % (Manual) Seg Neutrophils # Seg Neutrophils # Man Lymphocytes # (Manual) Monocytes # (Manual) Eosinophils # (Manual) Nucleated RBC % Basophils # (Manual) PT INR APTT Heparin Anti-Xa Level 1.28 H ABG pH POC ABG pO2 ABG pO2 ABG HCO3 ABG O2 Saturation ABG Base Excess POC ABG pCO2 ABG Hemoglobin ABG Oxyhemoglobin ABG Glucose Oxyhemoglobin Sodium Potassium Chloride Carbon Dioxide BUN Creatinine Glucose POC Glucose 112 H 146 H Lactic Acid Calcium Phosphorus Magnesium AST ALT Lactate Dehydrogenase CK-MB (CK-2) C-Reactive Protein NT-Pro-B Natriuret Pep Total Protein Albumin Arterial Blood Glucose Urine WBC (Auto) 01/22/20 01/22/20 01/22/20 04:45 04:45 05:48 WBC RBC Hgb 9.3 L Hct 29.0 L MCHC RDW MCV MCH Lymph % (Auto) [place] % (Auto) [place] # Eos # Lymph # (Auto) [place] # (Auto) Eos # (Auto) Seg Neutrophils % Seg Neuts % (Manual) Baso # (Auto) Lymphocytes % (Manual) Monocytes % (Manual) Eosinophils % (Manual) Basophils % (Manual) Seg Neutrophils # Seg Neutrophils # Man Lymphocytes # (Manual) Monocytes # (Manual) Eosinophils # (Manual) Nucleated RBC % Basophils # (Manual) PT INR APTT Heparin Anti-Xa Level 1.34 H ABG pH POC ABG pO2 ABG pO2 ABG HCO3 ABG O2 Saturation ABG Base Excess POC ABG pCO2 ABG Hemoglobin ABG Oxyhemoglobin ABG Glucose Oxyhemoglobin Sodium Potassium Chloride Carbon Dioxide BUN Creatinine Glucose POC Glucose 142 H Lactic Acid Calcium Phosphorus Magnesium AST ALT Lactate Dehydrogenase CK-MB (CK-2) C-Reactive Protein NT-Pro-B Natriuret Pep Total Protein Albumin Arterial Blood Glucose Urine WBC (Auto) 01/22/20 01/22/20 01/22/20 08:09 08:22 09:58 WBC RBC Hgb Hct MCHC RDW MCV MCH Lymph % (Auto) [place] % (Auto) [place] # Eos # Lymph # (Auto) [place] # (Auto) Eos # (Auto) Seg Neutrophils % Seg Neuts % (Manual) Baso # (Auto) Lymphocytes % (Manual) Monocytes % (Manual) Eosinophils % (Manual) Basophils % (Manual) Seg Neutrophils # Seg Neutrophils # Man Lymphocytes # (Manual) Monocytes # (Manual) Eosinophils # (Manual) Nucleated RBC % Basophils # (Manual) PT 16.9 H INR 1.34 H APTT Heparin Anti-Xa Level ABG pH POC ABG pO2 ABG pO2 ABG HCO3 ABG O2 Saturation ABG Base Excess POC ABG pCO2 ABG Hemoglobin ABG Oxyhemoglobin ABG Glucose Oxyhemoglobin Sodium Potassium Chloride 97.8 L Carbon Dioxide BUN 29 H Creatinine Glucose 128 H POC Glucose 131 H Lactic Acid Calcium Phosphorus Magnesium AST ALT Lactate Dehydrogenase CK-MB (CK-2) C-Reactive Protein NT-Pro-B Natriuret Pep Total Protein Albumin Arterial Blood Glucose Urine WBC (Auto) 01/22/20 01/22/20 01/22/20 12:44 16:13 18:18 WBC RBC Hgb Hct MCHC RDW MCV MCH Lymph % (Auto) [place] % (Auto) [place] # Eos # Lymph # (Auto) [place] # (Auto) Eos # (Auto) Seg Neutrophils % Seg Neuts % (Manual) Baso # (Auto) Lymphocytes % (Manual) Monocytes % (Manual) Eosinophils % (Manual) Basophils % (Manual) Seg Neutrophils # Seg Neutrophils # Man Lymphocytes # (Manual) Monocytes # (Manual) Eosinophils # (Manual) Nucleated RBC % Basophils # (Manual) PT INR APTT Heparin Anti-Xa Level ABG pH POC ABG pO2 ABG pO2 ABG HCO3 ABG O2 Saturation ABG Base Excess POC ABG pCO2 ABG Hemoglobin ABG Oxyhemoglobin ABG Glucose Oxyhemoglobin Sodium Potassium Chloride Carbon Dioxide BUN Creatinine Glucose POC Glucose 156 H 133 H 155 H Lactic Acid Calcium Phosphorus Magnesium AST ALT Lactate Dehydrogenase CK-MB (CK-2) C-Reactive Protein NT-Pro-B Natriuret Pep Total Protein Albumin Arterial Blood Glucose Urine WBC (Auto) 01/22/20 01/23/20 01/23/20 23:22 05:37 12:59 WBC RBC Hgb Hct MCHC RDW MCV MCH Lymph % (Auto) [place] % (Auto) [place] # Eos # Lymph # (Auto) [place] # (Auto) Eos # (Auto) Seg Neutrophils % Seg Neuts % (Manual) Baso # (Auto) Lymphocytes % (Manual) Monocytes % (Manual) Eosinophils % (Manual) Basophils % (Manual) Seg Neutrophils # Seg Neutrophils # Man Lymphocytes # (Manual) Monocytes # (Manual) Eosinophils # (Manual) Nucleated RBC % Basophils # (Manual) PT INR APTT Heparin Anti-Xa Level ABG pH POC ABG pO2 ABG pO2 ABG HCO3 ABG O2 Saturation ABG Base Excess POC ABG pCO2 ABG Hemoglobin ABG Oxyhemoglobin ABG Glucose Oxyhemoglobin Sodium Potassium Chloride Carbon Dioxide BUN Creatinine Glucose POC Glucose 148 H 163 H 175 H Lactic Acid Calcium Phosphorus Magnesium AST ALT Lactate Dehydrogenase CK-MB (CK-2) C-Reactive Protein NT-Pro-B Natriuret Pep Total Protein Albumin Arterial Blood Glucose Urine WBC (Auto) 01/23/20 01/23/20 01/24/20 17:28 23:56 04:30 WBC RBC 3.46 L Hgb 8.8 L Hct 27.8 L MCHC RDW 18.2 H MCV 81 L MCH 25 L Lymph % (Auto) [place] % (Auto) 7.8 H [place] # Eos # Lymph # (Auto) [place] # (Auto) Eos # (Auto) Seg Neutrophils % Seg Neuts % (Manual) Baso # (Auto) Lymphocytes % (Manual) Monocytes % (Manual) Eosinophils % (Manual) Basophils % (Manual) Seg Neutrophils # Seg Neutrophils # Man Lymphocytes # (Manual) Monocytes # (Manual) Eosinophils # (Manual) Nucleated RBC % Basophils # (Manual) PT INR APTT Heparin Anti-Xa Level ABG pH POC ABG pO2 ABG pO2 ABG HCO3 ABG O2 Saturation ABG Base Excess POC ABG pCO2 ABG Hemoglobin ABG Oxyhemoglobin ABG Glucose Oxyhemoglobin Sodium Potassium Chloride Carbon Dioxide BUN Creatinine Glucose POC Glucose 165 H 177 H Lactic Acid Calcium Phosphorus Magnesium AST ALT Lactate Dehydrogenase CK-MB (CK-2) C-Reactive Protein NT-Pro-B Natriuret Pep Total Protein Albumin Arterial Blood Glucose Urine WBC (Auto) 01/24/20 01/24/20 01/24/20 04:30 07:18 12:06 WBC RBC Hgb Hct MCHC RDW MCV MCH Lymph % (Auto) [place] % (Auto) [place] # Eos # Lymph # (Auto) [place] # (Auto) Eos # (Auto) Seg Neutrophils % Seg Neuts % (Manual) Baso # (Auto) Lymphocytes % (Manual) Monocytes % (Manual) Eosinophils % (Manual) Basophils % (Manual) Seg Neutrophils # Seg Neutrophils # Man Lymphocytes # (Manual) Monocytes # (Manual) Eosinophils # (Manual) Nucleated RBC % Basophils # (Manual) PT INR APTT Heparin Anti-Xa Level ABG pH POC ABG pO2 ABG pO2 ABG HCO3 ABG O2 Saturation ABG Base Excess POC ABG pCO2 ABG Hemoglobin ABG Oxyhemoglobin ABG Glucose Oxyhemoglobin Sodium Potassium Chloride 97.9 L Carbon Dioxide BUN 31 H Creatinine Glucose 146 H POC Glucose 151 H 133 H Lactic Acid Calcium Phosphorus Magnesium AST ALT Lactate Dehydrogenase CK-MB (CK-2) C-Reactive Protein NT-Pro-B Natriuret Pep Total Protein Albumin Arterial Blood Glucose Urine WBC (Auto) 01/24/20 01/25/20 01/25/20 17:36 00:08 04:25 WBC RBC 3.50 L Hgb 8.7 L Hct 27.9 L MCHC 31 L RDW 18.2 H MCV 80 L MCH 25 L Lymph % (Auto) [place] % (Auto) 8.5 H [place] # Eos # Lymph # (Auto) [place] # (Auto) Eos # (Auto) Seg Neutrophils % Seg Neuts % (Manual) Baso # (Auto) Lymphocytes % (Manual) Monocytes % (Manual) Eosinophils % (Manual) Basophils % (Manual) Seg Neutrophils # Seg Neutrophils # Man Lymphocytes # (Manual) Monocytes # (Manual) Eosinophils # (Manual) Nucleated RBC % Basophils # (Manual) PT INR APTT Heparin Anti-Xa Level ABG pH POC ABG pO2 ABG pO2 ABG HCO3 ABG O2 Saturation ABG Base Excess POC ABG pCO2 ABG Hemoglobin ABG Oxyhemoglobin ABG Glucose Oxyhemoglobin Sodium Potassium Chloride Carbon Dioxide BUN Creatinine Glucose POC Glucose 133 H 129 H Lactic Acid Calcium Phosphorus Magnesium AST ALT Lactate Dehydrogenase CK-MB (CK-2) C-Reactive Protein NT-Pro-B Natriuret Pep Total Protein Albumin Arterial Blood Glucose Urine WBC (Auto) 01/25/20 01/25/20 01/25/20 04:25 05:38 11:52 WBC RBC Hgb Hct MCHC RDW MCV MCH Lymph % (Auto) [place] % (Auto) [place] # Eos # Lymph # (Auto) [place] # (Auto) Eos # (Auto) Seg Neutrophils % Seg Neuts % (Manual) Baso # (Auto) Lymphocytes % (Manual) Monocytes % (Manual) Eosinophils % (Manual) Basophils % (Manual) Seg Neutrophils # Seg Neutrophils # Man Lymphocytes # (Manual) Monocytes # (Manual) Eosinophils # (Manual) Nucleated RBC % Basophils # (Manual) PT INR APTT Heparin Anti-Xa Level ABG pH POC ABG pO2 ABG pO2 ABG HCO3 ABG O2 Saturation ABG Base Excess POC ABG pCO2 ABG Hemoglobin ABG Oxyhemoglobin ABG Glucose Oxyhemoglobin Sodium Potassium Chloride Carbon Dioxide BUN 30 H Creatinine Glucose 134 H POC Glucose 129 H 134 H Lactic Acid Calcium Phosphorus Magnesium AST ALT Lactate Dehydrogenase CK-MB (CK-2) C-Reactive Protein NT-Pro-B Natriuret Pep Total Protein Albumin Arterial Blood Glucose Urine WBC (Auto) 01/25/20 01/25/20 01/26/20 17:13 21:02 00:59 WBC RBC Hgb Hct MCHC RDW MCV MCH Lymph % (Auto) [place] % (Auto) [place] # Eos # Lymph # (Auto) [place] # (Auto) Eos # (Auto) Seg Neutrophils % Seg Neuts % (Manual) Baso # (Auto) Lymphocytes % (Manual) Monocytes % (Manual) Eosinophils % (Manual) Basophils % (Manual) Seg Neutrophils # Seg Neutrophils # Man Lymphocytes # (Manual) Monocytes # (Manual) Eosinophils # (Manual) Nucleated RBC % Basophils # (Manual) PT INR APTT Heparin Anti-Xa Level ABG pH POC ABG pO2 ABG pO2 57.5 L ABG HCO3 31.7 H ABG O2 Saturation 90.3 L ABG Base Excess 6.6 H POC ABG pCO2 ABG Hemoglobin 13.0 L ABG Oxyhemoglobin ABG Glucose Oxyhemoglobin 87.5 L Sodium Potassium Chloride Carbon Dioxide BUN Creatinine Glucose POC Glucose 124 H 196 H Lactic Acid Calcium Phosphorus Magnesium AST ALT Lactate Dehydrogenase CK-MB (CK-2) C-Reactive Protein NT-Pro-B Natriuret Pep Total Protein Albumin Arterial Blood Glucose Urine WBC (Auto) 01/26/20 01/26/20 01/26/20 03:20 05:46 12:46 WBC RBC Hgb 9.2 L Hct 29.4 L MCHC RDW MCV MCH Lymph % (Auto) [place] % (Auto) [place] # Eos # Lymph # (Auto) [place] # (Auto) Eos # (Auto) Seg Neutrophils % Seg Neuts % (Manual) Baso # (Auto) Lymphocytes % (Manual) Monocytes % (Manual) Eosinophils % (Manual) Basophils % (Manual) Seg Neutrophils # Seg Neutrophils # Man Lymphocytes # (Manual) Monocytes # (Manual) Eosinophils # (Manual) Nucleated RBC % Basophils # (Manual) PT INR APTT Heparin Anti-Xa Level ABG pH POC ABG pO2 ABG pO2 ABG HCO3 ABG O2 Saturation ABG Base Excess POC ABG pCO2 ABG Hemoglobin ABG Oxyhemoglobin ABG Glucose Oxyhemoglobin Sodium Potassium Chloride Carbon Dioxide BUN Creatinine Glucose POC Glucose 141 H 122 H Lactic Acid Calcium Phosphorus Magnesium AST ALT Lactate Dehydrogenase CK-MB (CK-2) C-Reactive Protein NT-Pro-B Natriuret Pep Total Protein Albumin Arterial Blood Glucose Urine WBC (Auto) 01/26/20 01/26/20 01/27/20 18:03 23:55 04:47 WBC RBC Hgb Hct MCHC RDW MCV MCH Lymph % (Auto) [place] % (Auto) [place] # Eos # Lymph # (Auto) [place] # (Auto) Eos # (Auto) Seg Neutrophils % Seg Neuts % (Manual) Baso # (Auto) Lymphocytes % (Manual) Monocytes % (Manual) Eosinophils % (Manual) Basophils % (Manual) Seg Neutrophils # Seg Neutrophils # Man Lymphocytes # (Manual) Monocytes # (Manual) Eosinophils # (Manual) Nucleated RBC % Basophils # (Manual) PT INR APTT Heparin Anti-Xa Level ABG pH POC ABG pO2 ABG pO2 ABG HCO3 ABG O2 Saturation ABG Base Excess POC ABG pCO2 ABG Hemoglobin ABG Oxyhemoglobin ABG Glucose Oxyhemoglobin Sodium Potassium Chloride Carbon Dioxide BUN 30 H Creatinine 0.7 L Glucose 135 H POC Glucose 142 H 159 H Lactic Acid Calcium Phosphorus Magnesium AST ALT Lactate Dehydrogenase CK-MB (CK-2) C-Reactive Protein NT-Pro-B Natriuret Pep Total Protein Albumin Arterial Blood Glucose Urine WBC (Auto) 01/27/20 01/27/20 01/27/20 05:43 12:06 17:16 WBC RBC Hgb Hct MCHC RDW MCV MCH Lymph % (Auto) [place] % (Auto) [place] # Eos # Lymph # (Auto) [place] # (Auto) Eos # (Auto) Seg Neutrophils % Seg Neuts % (Manual) Baso # (Auto) Lymphocytes % (Manual) Monocytes % (Manual) Eosinophils % (Manual) Basophils % (Manual) Seg Neutrophils # Seg Neutrophils # Man Lymphocytes # (Manual) Monocytes # (Manual) Eosinophils # (Manual) Nucleated RBC % Basophils # (Manual) PT INR APTT Heparin Anti-Xa Level ABG pH POC ABG pO2 ABG pO2 ABG HCO3 ABG O2 Saturation ABG Base Excess POC ABG pCO2 ABG Hemoglobin ABG Oxyhemoglobin ABG Glucose Oxyhemoglobin Sodium Potassium Chloride Carbon Dioxide BUN Creatinine Glucose POC Glucose 143 H 142 H 128 H Lactic Acid Calcium Phosphorus Magnesium AST ALT Lactate Dehydrogenase CK-MB (CK-2) C-Reactive Protein NT-Pro-B Natriuret Pep Total Protein Albumin Arterial Blood Glucose Urine WBC (Auto) 01/27/20 01/28/20 01/28/20 23:55 04:37 05:55 WBC RBC Hgb 9.4 L Hct 29.9 L MCHC RDW MCV MCH Lymph % (Auto) [place] % (Auto) [place] # Eos # Lymph # (Auto) [place] # (Auto) Eos # (Auto) Seg Neutrophils % Seg Neuts % (Manual) Baso # (Auto) Lymphocytes % (Manual) Monocytes % (Manual) Eosinophils % (Manual) Basophils % (Manual) Seg Neutrophils # Seg Neutrophils # Man Lymphocytes # (Manual) Monocytes # (Manual) Eosinophils # (Manual) Nucleated RBC % Basophils # (Manual) PT INR APTT Heparin Anti-Xa Level ABG pH POC ABG pO2 ABG pO2 ABG HCO3 ABG O2 Saturation ABG Base Excess POC ABG pCO2 ABG Hemoglobin ABG Oxyhemoglobin ABG Glucose Oxyhemoglobin Sodium Potassium Chloride Carbon Dioxide BUN Creatinine Glucose POC Glucose 166 H 169 H Lactic Acid Calcium Phosphorus Magnesium AST ALT Lactate Dehydrogenase CK-MB (CK-2) C-Reactive Protein NT-Pro-B Natriuret Pep Total Protein Albumin Arterial Blood Glucose Urine WBC (Auto) 01/28/20 01/28/20 01/28/20 11:58 17:26 23:46 WBC RBC Hgb Hct MCHC RDW MCV MCH Lymph % (Auto) [place] % (Auto) [place] # Eos # Lymph # (Auto) [place] # (Auto) Eos # (Auto) Seg Neutrophils % Seg Neuts % (Manual) Baso # (Auto) Lymphocytes % (Manual) Monocytes % (Manual) Eosinophils % (Manual) Basophils % (Manual) Seg Neutrophils # Seg Neutrophils # Man Lymphocytes # (Manual) Monocytes # (Manual) Eosinophils # (Manual) Nucleated RBC % Basophils # (Manual) PT INR APTT Heparin Anti-Xa Level ABG pH POC ABG pO2 ABG pO2 ABG HCO3 ABG O2 Saturation ABG Base Excess POC ABG pCO2 ABG Hemoglobin ABG Oxyhemoglobin ABG Glucose Oxyhemoglobin Sodium Potassium Chloride Carbon Dioxide BUN Creatinine Glucose POC Glucose 130 H 126 H 150 H Lactic Acid Calcium Phosphorus Magnesium AST ALT Lactate Dehydrogenase CK-MB (CK-2) C-Reactive Protein NT-Pro-B Natriuret Pep Total Protein Albumin Arterial Blood Glucose Urine WBC (Auto) 01/29/20 01/29/20 01/29/20 04:55 06:00 12:28 WBC RBC Hgb Hct MCHC RDW MCV MCH Lymph % (Auto) [place] % (Auto) [place] # Eos # Lymph # (Auto) [place] # (Auto) Eos # (Auto) Seg Neutrophils % Seg Neuts % (Manual) Baso # (Auto) Lymphocytes % (Manual) Monocytes % (Manual) Eosinophils % (Manual) Basophils % (Manual) Seg Neutrophils # Seg Neutrophils # Man Lymphocytes # (Manual) Monocytes # (Manual) Eosinophils # (Manual) Nucleated RBC % Basophils # (Manual) PT INR APTT Heparin Anti-Xa Level ABG pH POC ABG pO2 ABG pO2 ABG HCO3 ABG O2 Saturation ABG Base Excess POC ABG pCO2 ABG Hemoglobin ABG Oxyhemoglobin ABG Glucose Oxyhemoglobin Sodium Potassium Chloride Carbon Dioxide 34 H BUN Creatinine 0.6 L Glucose 152 H POC Glucose 157 H 156 H Lactic Acid Calcium Phosphorus Magnesium AST ALT Lactate Dehydrogenase CK-MB (CK-2) C-Reactive Protein NT-Pro-B Natriuret Pep Total Protein Albumin Arterial Blood Glucose Urine WBC (Auto) 01/29/20 01/30/20 01/30/20 19:06 00:29 05:39 WBC RBC Hgb Hct MCHC RDW MCV MCH Lymph % (Auto) [place] % (Auto) [place] # Eos # Lymph # (Auto) [place] # (Auto) Eos # (Auto) Seg Neutrophils % Seg Neuts % (Manual) Baso # (Auto) Lymphocytes % (Manual) Monocytes % (Manual) Eosinophils % (Manual) Basophils % (Manual) Seg Neutrophils # Seg Neutrophils # Man Lymphocytes # (Manual) Monocytes # (Manual) Eosinophils # (Manual) Nucleated RBC % Basophils # (Manual) PT INR APTT Heparin Anti-Xa Level ABG pH POC ABG pO2 ABG pO2 ABG HCO3 ABG O2 Saturation ABG Base Excess POC ABG pCO2 ABG Hemoglobin ABG Oxyhemoglobin ABG Glucose Oxyhemoglobin Sodium Potassium Chloride Carbon Dioxide BUN Creatinine Glucose POC Glucose 152 H 132 H 159 H Lactic Acid Calcium Phosphorus Magnesium AST ALT Lactate Dehydrogenase CK-MB (CK-2) C-Reactive Protein NT-Pro-B Natriuret Pep Total Protein Albumin Arterial Blood Glucose Urine WBC (Auto) 01/30/20 01/30/20 01/30/20 12:27 17:42 23:28 WBC RBC Hgb Hct MCHC RDW MCV MCH Lymph % (Auto) [place] % (Auto) [place] # Eos # Lymph # (Auto) [place] # (Auto) Eos # (Auto) Seg Neutrophils % Seg Neuts % (Manual) Baso # (Auto) Lymphocytes % (Manual) Monocytes % (Manual) Eosinophils % (Manual) Basophils % (Manual) Seg Neutrophils # Seg Neutrophils # Man Lymphocytes # (Manual) Monocytes # (Manual) Eosinophils # (Manual) Nucleated RBC % Basophils # (Manual) PT INR APTT Heparin Anti-Xa Level ABG pH POC ABG pO2 ABG pO2 ABG HCO3 ABG O2 Saturation ABG Base Excess POC ABG pCO2 ABG Hemoglobin ABG Oxyhemoglobin ABG Glucose Oxyhemoglobin Sodium Potassium Chloride Carbon Dioxide BUN Creatinine Glucose POC Glucose 151 H 144 H 164 H Lactic Acid Calcium Phosphorus Magnesium AST ALT Lactate Dehydrogenase CK-MB (CK-2) C-Reactive Protein NT-Pro-B Natriuret Pep Total Protein Albumin Arterial Blood Glucose Urine WBC (Auto) 01/31/20 05:51 WBC RBC Hgb Hct MCHC RDW MCV MCH Lymph % (Auto) [place] % (Auto) [place] # Eos # Lymph # (Auto) [place] # (Auto) Eos # (Auto) Seg Neutrophils % Seg Neuts % (Manual) Baso # (Auto) Lymphocytes % (Manual) Monocytes % (Manual) Eosinophils % (Manual) Basophils % (Manual) Seg Neutrophils # Seg Neutrophils # Man Lymphocytes # (Manual) Monocytes # (Manual) Eosinophils # (Manual) Nucleated RBC % Basophils # (Manual) PT INR APTT Heparin Anti-Xa Level ABG pH POC ABG pO2 ABG pO2 ABG HCO3 ABG O2 Saturation ABG Base Excess POC ABG pCO2 ABG Hemoglobin ABG Oxyhemoglobin ABG Glucose Oxyhemoglobin Sodium Potassium Chloride Carbon Dioxide BUN Creatinine Glucose POC Glucose 131 H Lactic Acid Calcium Phosphorus Magnesium AST ALT Lactate Dehydrogenase CK-MB (CK-2) C-Reactive Protein NT-Pro-B Natriuret Pep Total Protein Albumin Arterial Blood Glucose Urine WBC (Auto) Chest x-ray: pending Allied health notes reviewed: nursing
[2020-01-31 16:36] LABS: Creatinine,Urine 57.4 mg/dL (0.1-20.0)
[2020-01-31] MEDS ORDERED: DEXTROSE 50% IN WATER (25GM) 50 ML SYRINGE IV PRN (18:51)
[2020-01-31] MEDS: INSULIN REGULAR, HUMAN 100 UNIT/ML 3ML VIAL SUB-Q SCH (19:14)
[2020-01-31 20:12] LABS: BUN/Creatinine Ratio 40; Blood Urea Nitrogen 36 mg/dL (9-20); Calcium 9.2 mg/dL (8.4-10.2); Hemolysis Index 0
[2020-01-31] MEDS: TAMSULOSIN 0.4 MG CAP PO SCH (21:29)
[2020-02-01] MEDS: METOPROLOL TARTRATE 25 MG TAB PO SCH ×4 (01:30→21:44)
--- NOTE | 2020-02-01 04:16 | XRay Report ---
CHEST 1 VIEW INDICATION / CLINICAL INFORMATION: pulmonary edema. COMPARISON: 01/28/2020 FINDINGS: SUPPORT DEVICES: Tracheostomy tube remains in stable position. HEART / MEDIASTINUM: No significant abnormality. LUNGS / PLEURA: Lungs appear slightly better aerated. Diffuse bilateral pulmonary opacities remain wi th minimal improvement. Small right pleural effusion is again noted. No pneumothorax. ADDITIONAL FINDINGS: No significant additional findings. IMPRESSION: 1. Significant bilateral pulmonary opacities persist. There has been slight interval improvement. Signer Name: Ann Alegre MD Signed: 02/01/2020 4:12 AM Workstation Name: [id number]
[2020-02-01] MEDS: ONDANSETRON 4 MG/2 ML INJ IV PRN ×2 (04:30→14:58)
[2020-02-01] MEDS: NITROGLYCERIN 0.4 MG PATCH 24HR TD SCH (05:11)
[2020-02-01] MEDS: FUROSEMIDE 20 MG TAB PO SCH (05:11)
[2020-02-01] MEDS: INSULIN REGULAR, HUMAN 100 UNIT/ML 3ML VIAL SUB-Q SCH ×3 (05:12→18:47)
[2020-02-01] MEDS: CLOPIDOGREL 75 MG TAB PO SCH (10:12)
[2020-02-01] MEDS: GLYCOPYRROLATE 2 MG TAB PO SCH ×3 (10:12→19:49)
[2020-02-01] MEDS: APIXABAN 5 MG TAB PO SCH ×2 (10:12→21:41)
[2020-02-01] MEDS: QUEtiapine 100 MG TAB PO SCH ×2 (10:12→21:39)
[2020-02-01] MEDS: MIDODRINE 5 MG TAB PO SCH ×3 (10:15→17:36)
[2020-02-01] MEDS: AMIODARONE 200 MG TAB PO SCH ×2 (10:18→21:41)
--- NOTE | 2020-02-01 10:33 | Progress Note ---
Assessment and Plan Chest pain, resolved LHC done 01/22/20 widely patent previous LAD stent. We found mild nonobstructive atherosclerosis of the mid right coronary artery. Otherwise the rest of the coronary system was without significant atherosclerosis. LVEF 40 to 45%. There was some hypokinesis of the basal inferior wall suggestive of previous or recent infarct. ECG done 01/19/20 shows sinus rhythm with low voltage QRS and subtle ST segment elevations in the inferolateral leads that suggested possible concern for an acute injury at that time. Atrial fibrillation, paroxysmal on amiodarone and metoprolol Ischemic Cardiomyopathy re-echo this presentation reports an LVEF 40-45%. Hx of CAD Multifocal pneumonia negative COVID-19 test x 3 Chronic Respiratory failure s/p trach History of COPD Acute PE/DVT -on Eliquis Anemia Partial SBO vs ileus Recommend: Continue guideline directed medical therapy for coronary artery disease and atri al fibrillation. Otherwise, conservative cardiac management. Subjective Date of service: 02/01/20 Principal diagnosis: Ac hypoxemic resp failure; Pneumonia; PUI COVID-19; CHF; COPD; HTN Interval history: Patient is resting in bed comfortably. Atrial fibrillation with a well controlled ventricular rate on telemetry Objective Vital Signs Temp Pulse Pulse Resp BP Pulse Ox Pulse Ox 02/01/20 08:10 113 H 110/81 99 99 02/01/20 06:00 106 H 24 105/73 100 02/01/20 05:11 117 H 107/80 02/01/20 05:00 124 H 21 107/80 99 02/01/20 04:49 98 02/01/20 04:47 109 H 111/86 98 02/01/20 04:00 98.6 F 108 H 134 H 30 H 115/89 96 02/01/20 03:01 104 H 15 108/83 96 02/01/20 02:00 123 H 16 98/67 95 02/01/20 01:30 105 H 108/83 02/01/20 01:03 124 H 103/78 100 02/01/20 01:00 124 H 23 103/78 96 02/01/20 00:00 98.6 F 112 H 134 H 24 103/81 97 01/31/20 23:00 122 H 19 101/71 01/31/20 22:13 112 H 27 H 114/84 98 01/31/20 22:00 123 H 24 114/84 97 01/31/20 21:15 100 01/31/20 21:06 123 H 115/90 100 01/31/20 21:00 120 H 29 H 123/88 97 01/31/20 20:00 99.1 F 122 H 120 H 31 H 129/102 92 01/31/20 19:00 123 H 26 H 131/79 94 01/31/20 18:29 112 H 121/82 01/31/20 18:00 116 H 30 H 134/87 96 01/31/20 17:00 114 H 30 H 131/86 01/31/20 16:00 98.4 F 134 H 134 H 24 127/90 99 01/31/20 15:53 124 H 24 101/84 98 98 01/31/20 15:00 124 H 26 H 101/84 97 01/31/20 14:00 113 H 40 H 113/78 99 01/31/20 13:10 108 H 22 108/73 100 01/31/20 13:00 119 H 22 112/69 100 01/31/20 12:18 120 H 120/81 01/31/20 12:00 98.5 F 111 H 113 H 20 114/81 99 01/31/20 11:10 119 H 22 109/74 98 01/31/20 11:05 126 H 123/76 01/31/20 11:00 115 H 26 H 128/96 96 - Physical Examination General: Other (awake, s/p trach) HEENT: Positive: PERRL Cardiac: Positive: irregularly irregular Neuro: Positive: Weakness Extremities: Absent: edema - Labs and Meds Comprehensive Metabolic Panel 01/31/20 Range/Units 19:24 Sodium 138 (137-145) mmol/L Potassium 3.8 (3.6-5.0) mmol/L Chloride 95.3 L (98-107) mmol/L Carbon Dioxide 33 H (22-30) mmol/L BUN 36 H (9-20) mg/dL Creatinine 0.9 (0.8-1.3) mg/dL Glucose 187 H (75-100) mg/dL Calcium 9.2 (8.4-10.2) mg/dL - Allied health notes Allied health notes reviewed: nursing
[2020-02-01] MEDS: FAMOTIDINE 20 MG TAB PO SCH ×2 (11:37→22:00)
--- NOTE | 2020-02-01 12:59 | Progress Note ---
Assessment and Plan Acute hypoxemic respiratory failure Bilateral pneumonia, community acquired. Acute LLL branch P.E. Acute DVT Person under investigation for COVID-19 infection. Acute congestive heart failure exacerbation. History of cerebrovascular accident. Acute chronic obstructive pulmonary disease exacerbation. Hypertension and hypertensive urgency at presentation. History of arthritis. Leukocytosis. Lactic acidosis. Oropharyngeal dysphagia (Suspecty IVVD at this point) - discussed care plan with his in room - placed back on full AC support - Azotemia is pre-renal - continue low dose diuresis while following hemodynamic's - get US chest +/- thoracentesis - Keep NPO re: N&V - Mg & PO4 levels WNL - continue care as below otherwise; - Midodrine for BP support during diuresis - target even to slightly negative fluid balance - continue daytime T-piece trials (switch to PSV if fails) and advance RTC as tolerated - continue mucomyst nebs re: secretions - continue full anticoagulation with Apixaban - continue daily SAT's and SBT assessment as tolerated - continue seroquel for anxiolysis / delirium - COVID isolation per facility protocol - prn diuresis while following electrolytes / I's & O's - continue to wean oxygen for O2 sat's > 92% - continue bronchodilators with routine trach care and pulmonary hygiene per RT - continue Robinul & Scopolamine for secretion control - VAP bundle addressed (Aspiration precautions, HOB >40) - continue to wean per pulmonary driven protocols - sedation target is RASS 0 to -1 - continue prn analgesia per CPOT score - follow clinically re: fever curves / trend WBC - Avoid delirium (no benzodiazepines if they can be avoided) - Maintain sleep-wake cycle - enteral nutrition at goal rate as tolerated - continue accucheck's with glycemic control per SSI for target blood glucose goal of 140-180 mg/dL while critically ill; Avoid hypoglycemia - for VTE he is on IV Heparin - continue stress ulcer prophylaxis with Famotidine - continue mobility protocols for pressure ulcer prophylaxis - continue fall precautions - continue wound care management per RN / WCT - Supportive transfusions to keep HgB>7g/dL - CXR's and ABG's prn - Continue to monitor neurologic function - Continue chronic home medications - Continue all supportive care ........ re-evaluate in am & prn CONDITION: CRITICAL PROGNOSIS: GUARDED CODE STATUS: FULL CODE The high probability of a clinically significant, sudden or life threatening deterioration of the [Respiratory, cardiovascular & neurological] system(s) required my full and direct attention, intervention and personal management. The aggregate critical care time was [33] minutes without overlap. Time includes spent on [x] Data Review and interpretation [x] Patient assessment and monitoring of vital signs [x] Documentation [x] Medication orders and management Subjective Date of service: 02/01/20 Principal diagnosis: Ac hypoxemic resp failure; Pneumonia; PUI COVID-19; CHF; COPD; HTN Interval history: Patient is seen today for: Acute hypoxemic respiratory failure; [place]. Pneumonia (CAP); PUI COVID-19 infection; AE-CHF; AE-COPD; H/O CVA; HTN Seen and examined at bedside; 24 hour events reviewed; nursing and respiratory care staff consulted; no adverse overnight events reported to me; resting peacefully in bed; + episode of emesis this morning; complains of chest tightness thereafter; was on SBT earlier via PSV but work of breathing now increased; Afebrile Objective Vital Signs - 12hr 02/01/20 02/01/20 02/01/20 01:00 01:03 01:30 Temperature Pulse Rate 124 H 124 H 105 H Pulse Rate [ From Monitor] Respiratory 23 Rate Blood Pressure 103/78 103/78 108/83 O2 Sat by Pulse 96 100 Oximetry O2 Sat by Pulse Oximetry [ Assessment] 02/01/20 02/01/20 02/01/20 02:00 03:01 04:00 Temperature 98.6 F Pulse Rate 123 H 104 H 108 H Pulse Rate [ 134 H From Monitor] Respiratory 16 15 30 H Rate Blood Pressure 98/67 108/83 115/89 O2 Sat by Pulse 95 96 96 Oximetry O2 Sat by Pulse Oximetry [ Assessment] 02/01/20 02/01/20 02/01/20 04:47 04:49 05:00 Temperature Pulse Rate 109 H 124 H Pulse Rate [ From Monitor] Respiratory 21 Rate Blood Pressure 111/86 107/80 O2 Sat by Pulse 98 99 Oximetry O2 Sat by Pulse 98 Oximetry [ Assessment] 02/01/20 02/01/20 02/01/20 05:11 06:00 07:00 Temperature Pulse Rate 117 H 106 H 118 H Pulse Rate [ From Monitor] Respiratory 24 21 Rate Blood Pressure 107/80 105/73 99/71 O2 Sat by Pulse 100 98 Oximetry O2 Sat by Pulse Oximetry [ Assessment] 02/01/20 02/01/20 02/01/20 08:01 08:10 08:20 Temperature Pulse Rate 120 H 113 H 116 H Pulse Rate [ From Monitor] Respiratory 25 H 20 Rate Blood Pressure 110/81 110/81 109/72 O2 Sat by Pulse 98 99 98 Oximetry O2 Sat by Pulse 99 Oximetry [ Assessment] 02/01/20 02/01/20 02/01/20 09:00 10:00 11:00 Temperature Pulse Rate 121 H 124 H 122 H Pulse Rate [ From Monitor] Respiratory 21 26 H 24 Rate Blood Pressure 109/72 109/78 121/84 O2 Sat by Pulse 98 99 98 Oximetry O2 Sat by Pulse Oximetry [ Assessment] Constitutional: appears uncomfortable, other (elelelderly and obese male, normocephalic with mildly increased respiratory effort at rest) Eyes: non-icteric ENT: oropharynx moist, other (+ midline tracheostomy) Neck: supple, no JVD Effort: mildly labored Ascultation: Bilateral: diminished breath sounds, rhonchi, other (+ secretions) Percussion: Bilateral: not dull Cardiovascular: irregular rhythm, other (S1,S2) Gastrointestinal: normoactive bowel sounds, soft, non-tender, non-distended (protuberant), other (protuberant; PEG in place) Integumentary: normal Extremities: no cyanosis, pulses normal, no ischemia or petechiae, edema (bilateral upper ) Neurologic: non-focal exam (moves extremities), pupils equal and round, CN II- XII normal, motor strength normal and (moves all extremities) Psychiatric: mood appropriate, anxious CBC and BMP: 01/28/20 04:37 01/31/20 19:24 ABG, PT/INR, D-dimer: ABG ABG pH 7.447 pH Units (7.350-7.450) 01/25/20 21:02 POC ABG pCO2 45.6 mmHg (32.0-48.0) 01/12/20 13:58 ABG pCO2 47.0 mm Hg 01/25/20 21:02 POC ABG pO2 76.6 mmHg (83-108) L 01/12/20 13:58 ABG pO2 57.5 mm Hg (80.0-90.0) L 01/25/20 21:02 POC ABG HCO3 31.2 01/12/20 13:58 ABG O2 Saturation 90.3 % (95.0-99.0) L 01/25/20 21:02 PT/INR, D-dimer PT 16.9 Sec. (12.2-14.9) H 01/22/20 09:58 INR 1.34 (0.87-1.13) H 01/22/20 09:58 Abnormal lab findings: Abnormal Labs 11/24/19 11/24/19 11/24/19 02:53 02:53 03:45 WBC 14.3 H RBC Hgb Hct MCHC RDW 17.2 H MCV MCH Lymph % (Auto) [place] % (Auto) [place] # Eos # Lymph # (Auto) [place] # (Auto) Eos # (Auto) Seg Neutrophils % Seg Neuts % (Manual) Baso # (Auto) Lymphocytes % (Manual) Monocytes % (Manual) Eosinophils % (Manual) Basophils % (Manual) Seg Neutrophils # Seg Neutrophils # Man 8.3 H Lymphocytes # (Manual) Monocytes # (Manual) 0.9 H Eosinophils # (Manual) Nucleated RBC % Basophils # (Manual) PT INR APTT Heparin Anti-Xa Level ABG pH 7.313 L POC ABG pO2 ABG pO2 102.8 H ABG HCO3 ABG O2 Saturation ABG Base Excess -2.9 L POC ABG pCO2 ABG Hemoglobin ABG Oxyhemoglobin ABG Glucose Oxyhemoglobin 93.9 L Sodium Potassium Chloride Carbon Dioxide BUN Creatinine Glucose 195 H POC Glucose Lactic Acid Calcium Phosphorus Magnesium AST ALT Lactate Dehydrogenase CK-MB (CK-2) 4.3 H C-Reactive Protein NT-Pro-B Natriuret Pep 1181 H Total Protein Albumin Arterial Blood Glucose Urine WBC (Auto) Urine Creatinine 11/24/19 11/24/19 11/24/19 04:53 04:53 10:37 WBC RBC Hgb Hct MCHC RDW MCV MCH Lymph % (Auto) [place] % (Auto) [place] # Eos # Lymph # (Auto) [place] # (Auto) Eos # (Auto) Seg Neutrophils % Seg Neuts % (Manual) Baso # (Auto) Lymphocytes % (Manual) Monocytes % (Manual) Eosinophils % (Manual) Basophils % (Manual) Seg Neutrophils # Seg Neutrophils # Man Lymphocytes # (Manual) Monocytes # (Manual) Eosinophils # (Manual) Nucleated RBC % Basophils # (Manual) PT INR APTT Heparin Anti-Xa Level ABG pH POC ABG pO2 ABG pO2 ABG HCO3 ABG O2 Saturation ABG Base Excess POC ABG pCO2 ABG Hemoglobin ABG Oxyhemoglobin ABG Glucose Oxyhemoglobin Sodium Potassium Chloride Carbon Dioxide BUN Creatinine Glucose 162 H POC Glucose Lactic Acid 2.40 H* 2.50 H* Calcium Phosphorus Magnesium AST ALT Lactate Dehydrogenase 240 H CK-MB (CK-2) C-Reactive Protein NT-Pro-B Natriuret Pep Total Protein Albumin Arterial Blood Glucose Urine WBC (Auto) Urine Creatinine 11/24/19 11/24/19 11/24/19 12:21 14:50 19:54 WBC RBC Hgb Hct MCHC RDW MCV MCH Lymph % (Auto) [place] % (Auto) [place] # Eos # Lymph # (Auto) [place] # (Auto) Eos # (Auto) Seg Neutrophils % Seg Neuts % (Manual) Baso # (Auto) Lymphocytes % (Manual) Monocytes % (Manual) Eosinophils % (Manual) Basophils % (Manual) Seg Neutrophils # Seg Neutrophils # Man Lymphocytes # (Manual) Monocytes # (Manual) Eosinophils # (Manual) Nucleated RBC % Basophils # (Manual) PT INR APTT Heparin Anti-Xa Level ABG pH POC ABG pO2 ABG pO2 ABG HCO3 ABG O2 Saturation ABG Base Excess POC ABG pCO2 ABG Hemoglobin ABG Oxyhemoglobin ABG Glucose Oxyhemoglobin Sodium Potassium Chloride Carbon Dioxide BUN Creatinine Glucose POC Glucose 145 H 143 H 124 H Lactic Acid Calcium Phosphorus Magnesium AST ALT Lactate Dehydrogenase CK-MB (CK-2) C-Reactive Protein NT-Pro-B Natriuret Pep Total Protein Albumin Arterial Blood Glucose Urine WBC (Auto) Urine Creatinine 11/25/19 11/25/19 11/25/19 00:18 03:18 05:11 WBC 13.7 H RBC Hgb Hct MCHC RDW 17.1 H MCV MCH Lymph % (Auto) 10.8 L [place] % (Auto) 8.7 H [place] # 1.2 H Eos # Lymph # (Auto) [place] # (Auto) Eos # (Auto) Seg Neutrophils % 80.2 H Seg Neuts % (Manual) Baso # (Auto) Lymphocytes % (Manual) Monocytes % (Manual) Eosinophils % (Manual) Basophils % (Manual) Seg Neutrophils # 11.0 H Seg Neutrophils # Man Lymphocytes # (Manual) Monocytes # (Manual) Eosinophils # (Manual) Nucleated RBC % Basophils # (Manual) PT INR APTT Heparin Anti-Xa Level ABG pH 7.333 L POC ABG pO2 ABG pO2 61.2 L ABG HCO3 ABG O2 Saturation 90.2 L ABG Base Excess POC ABG pCO2 ABG Hemoglobin 13.7 L ABG Oxyhemoglobin ABG Glucose Oxyhemoglobin 88.2 L Sodium Potassium Chloride Carbon Dioxide BUN Creatinine Glucose POC Glucose 109 H Lactic Acid Calcium Phosphorus Magnesium AST ALT Lactate Dehydrogenase CK-MB (CK-2) C-Reactive Protein NT-Pro-B Natriuret Pep Total Protein Albumin Arterial Blood Glucose Urine WBC (Auto) Urine Creatinine 11/25/19 11/25/19 11/26/19 05:11 11:40 03:12 WBC RBC Hgb Hct MCHC RDW MCV MCH Lymph % (Auto) [place] % (Auto) [place] # Eos # Lymph # (Auto) [place] # (Auto) Eos # (Auto) Seg Neutrophils % Seg Neuts % (Manual) Baso # (Auto) Lymphocytes % (Manual) Monocytes % (Manual) Eosinophils % (Manual) Basophils % (Manual) Seg Neutrophils # Seg Neutrophils # Man Lymphocytes # (Manual) Monocytes # (Manual) Eosinophils # (Manual) Nucleated RBC % Basophils # (Manual) PT INR APTT Heparin Anti-Xa Level ABG pH POC ABG pO2 ABG pO2 155.1 H ABG HCO3 27.8 H ABG O2 Saturation ABG Base Excess POC ABG pCO2 ABG Hemoglobin 12.2 L ABG Oxyhemoglobin ABG Glucose Oxyhemoglobin Sodium Potassium Chloride Carbon Dioxide BUN 23 H Creatinine Glucose 110 H POC Glucose 108 H Lactic Acid Calcium Phosphorus Magnesium AST ALT Lactate Dehydrogenase CK-MB (CK-2) C-Reactive Protein NT-Pro-B Natriuret Pep Total Protein Albumin Arterial Blood Glucose Urine WBC (Auto) Urine Creatinine 11/26/19 11/26/19 11/26/19 06:17 10:43 10:43 WBC 11.4 H RBC Hgb Hct MCHC RDW 17.1 H MCV MCH Lymph % (Auto) [place] % (Auto) [place] # Eos # Lymph # (Auto) [place] # (Auto) Eos # (Auto) Seg Neutrophils % Seg Neuts % (Manual) Baso # (Auto) Lymphocytes % (Manual) Monocytes % (Manual) Eosinophils % (Manual) Basophils % (Manual) Seg Neutrophils # Seg Neutrophils # Man Lymphocytes # (Manual) Monocytes # (Manual) Eosinophils # (Manual) Nucleated RBC % Basophils # (Manual) PT INR APTT Heparin Anti-Xa Level ABG pH POC ABG pO2 ABG pO2 ABG HCO3 ABG O2 Saturation ABG Base Excess POC ABG pCO2 ABG Hemoglobin ABG Oxyhemoglobin ABG Glucose Oxyhemoglobin Sodium Potassium Chloride Carbon Dioxide BUN 29 H Creatinine Glucose POC Glucose 107 H Lactic Acid Calcium Phosphorus Magnesium AST ALT Lactate Dehydrogenase CK-MB (CK-2) C-Reactive Protein NT-Pro-B Natriuret Pep Total Protein Albumin Arterial Blood Glucose Urine WBC (Auto) Urine Creatinine 11/26/19 11/27/19 11/27/19 17:11 01:53 04:11 WBC RBC Hgb Hct MCHC RDW MCV MCH Lymph % (Auto) [place] % (Auto) [place] # Eos # Lymph # (Auto) [place] # (Auto) Eos # (Auto) Seg Neutrophils % Seg Neuts % (Manual) Baso # (Auto) Lymphocytes % (Manual) Monocytes % (Manual) Eosinophils % (Manual) Basophils % (Manual) Seg Neutrophils # Seg Neutrophils # Man Lymphocytes # (Manual) Monocytes # (Manual) Eosinophils # (Manual) Nucleated RBC % Basophils # (Manual) PT INR APTT Heparin Anti-Xa Level ABG pH POC ABG pO2 ABG pO2 ABG HCO3 29.2 H ABG O2 Saturation ABG Base Excess 3.4 H POC ABG pCO2 ABG Hemoglobin 13.3 L ABG Oxyhemoglobin ABG Glucose Oxyhemoglobin 94.5 L Sodium Potassium Chloride Carbon Dioxide BUN Creatinine Glucose POC Glucose 113 H 108 H Lactic Acid Calcium Phosphorus Magnesium AST ALT Lactate Dehydrogenase CK-MB (CK-2) C-Reactive Protein NT-Pro-B Natriuret Pep Total Protein Albumin Arterial Blood Glucose Urine WBC (Auto) Urine Creatinine 11/27/19 11/28/19 11/28/19 05:27 05:00 05:25 WBC RBC Hgb Hct MCHC RDW MCV MCH Lymph % (Auto) [place] % (Auto) [place] # Eos # Lymph # (Auto) [place] # (Auto) Eos # (Auto) Seg Neutrophils % Seg Neuts % (Manual) Baso # (Auto) Lymphocytes % (Manual) Monocytes % (Manual) Eosinophils % (Manual) Basophils % (Manual) Seg Neutrophils # Seg Neutrophils # Man Lymphocytes # (Manual) Monocytes # (Manual) Eosinophils # (Manual) Nucleated RBC % Basophils # (Manual) PT INR APTT Heparin Anti-Xa Level ABG pH POC ABG pO2 68.1 L ABG pO2 ABG HCO3 ABG O2 Saturation ABG Base Excess POC ABG pCO2 ABG Hemoglobin ABG Oxyhemoglobin 91.2 L ABG Glucose Oxyhemoglobin Sodium Potassium Chloride Carbon Dioxide BUN Creatinine Glucose POC Glucose 111 H 110 H Lactic Acid Calcium Phosphorus Magnesium AST ALT Lactate Dehydrogenase CK-MB (CK-2) C-Reactive Protein NT-Pro-B Natriuret Pep Total Protein Albumin Arterial Blood Glucose Urine WBC (Auto) Urine Creatinine 11/28/19 11/28/19 11/28/19 12:08 13:47 13:47 WBC 11.3 H RBC Hgb Hct MCHC RDW 16.1 H MCV MCH Lymph % (Auto) [place] % (Auto) 9.9 H [place] # 1.1 H Eos # Lymph # (Auto) [place] # (Auto) Eos # (Auto) Seg Neutrophils % 71.4 H Seg Neuts % (Manual) Baso # (Auto) Lymphocytes % (Manual) Monocytes % (Manual) Eosinophils % (Manual) Basophils % (Manual) Seg Neutrophils # 8.1 H Seg Neutrophils # Man Lymphocytes # (Manual) Monocytes # (Manual) Eosinophils # (Manual) Nucleated RBC % Basophils # (Manual) PT INR APTT Heparin Anti-Xa Level ABG pH POC ABG pO2 ABG pO2 ABG HCO3 ABG O2 Saturation ABG Base Excess POC ABG pCO2 ABG Hemoglobin ABG Oxyhemoglobin ABG Glucose Oxyhemoglobin Sodium Potassium Chloride Carbon Dioxide BUN 23 H Creatinine Glucose 123 H POC Glucose 112 H Lactic Acid Calcium Phosphorus Magnesium AST ALT Lactate Dehydrogenase CK-MB (CK-2) C-Reactive Protein NT-Pro-B Natriuret Pep Total Protein Albumin 3.7 L Arterial Blood Glucose Urine WBC (Auto) Urine Creatinine 11/28/19 11/29/19 11/29/19 17:26 03:55 17:04 WBC RBC Hgb Hct MCHC RDW MCV MCH Lymph % (Auto) [place] % (Auto) [place] # Eos # Lymph # (Auto) [place] # (Auto) Eos # (Auto) Seg Neutrophils % Seg Neuts % (Manual) Baso # (Auto) Lymphocytes % (Manual) Monocytes % (Manual) Eosinophils % (Manual) Basophils % (Manual) Seg Neutrophils # Seg Neutrophils # Man Lymphocytes # (Manual) Monocytes # (Manual) Eosinophils # (Manual) Nucleated RBC % Basophils # (Manual) PT INR APTT Heparin Anti-Xa Level ABG pH POC ABG pO2 ABG pO2 65.7 L ABG HCO3 28.3 H ABG O2 Saturation 93.9 L ABG Base Excess 3.6 H POC ABG pCO2 ABG Hemoglobin 13.3 L ABG Oxyhemoglobin ABG Glucose Oxyhemoglobin 91.5 L Sodium Potassium Chloride Carbon Dioxide BUN Creatinine Glucose POC Glucose 123 H 119 H Lactic Acid Calcium Phosphorus Magnesium AST ALT Lactate Dehydrogenase CK-MB (CK-2) C-Reactive Protein NT-Pro-B Natriuret Pep Total Protein Albumin Arterial Blood Glucose Urine WBC (Auto) Urine Creatinine 11/30/19 11/30/19 11/30/19 04:17 04:17 04:56 WBC 13.4 H RBC Hgb Hct MCHC RDW 15.6 H MCV MCH Lymph % (Auto) [place] % (Auto) [place] # Eos # Lymph # (Auto) [place] # (Auto) Eos # (Auto) Seg Neutrophils % Seg Neuts % (Manual) Baso # (Auto) Lymphocytes % (Manual) Monocytes % (Manual) Eosinophils % (Manual) Basophils % (Manual) Seg Neutrophils # Seg Neutrophils # Man Lymphocytes # (Manual) Monocytes # (Manual) Eosinophils # (Manual) Nucleated RBC % Basophils # (Manual) PT INR APTT Heparin Anti-Xa Level ABG pH POC ABG pO2 ABG pO2 56.3 L ABG HCO3 29.3 H ABG O2 Saturation 91.5 L ABG Base Excess 4.7 H POC ABG pCO2 ABG Hemoglobin 12.1 L ABG Oxyhemoglobin ABG Glucose Oxyhemoglobin 89.2 L Sodium 147 H Potassium Chloride Carbon Dioxide BUN 30 H Creatinine Glucose 124 H POC Glucose Lactic Acid Calcium Phosphorus Magnesium AST ALT Lactate Dehydrogenase CK-MB (CK-2) C-Reactive Protein NT-Pro-B Natriuret Pep Total Protein Albumin 3.8 L Arterial Blood Glucose Urine WBC (Auto) Urine Creatinine 11/30/19 11/30/19 11/30/19 05:51 11:54 18:17 WBC RBC Hgb Hct MCHC RDW MCV MCH Lymph % (Auto) [place] % (Auto) [place] # Eos # Lymph # (Auto) [place] # (Auto) Eos # (Auto) Seg Neutrophils % Seg Neuts % (Manual) Baso # (Auto) Lymphocytes % (Manual) Monocytes % (Manual) Eosinophils % (Manual) Basophils % (Manual) Seg Neutrophils # Seg Neutrophils # Man Lymphocytes # (Manual) Monocytes # (Manual) Eosinophils # (Manual) Nucleated RBC % Basophils # (Manual) PT INR APTT Heparin Anti-Xa Level ABG pH POC ABG pO2 ABG pO2 ABG HCO3 ABG O2 Saturation ABG Base Excess POC ABG pCO2 ABG Hemoglobin ABG Oxyhemoglobin ABG Glucose Oxyhemoglobin Sodium Potassium Chloride Carbon Dioxide BUN Creatinine Glucose POC Glucose 127 H 115 H 143 H Lactic Acid Calcium Phosphorus Magnesium AST ALT Lactate Dehydrogenase CK-MB (CK-2) C-Reactive Protein NT-Pro-B Natriuret Pep Total Protein Albumin Arterial Blood Glucose Urine WBC (Auto) Urine Creatinine 12/01/19 12/01/19 12/01/19 01:18 05:22 12:16 WBC RBC Hgb Hct MCHC RDW MCV MCH Lymph % (Auto) [place] % (Auto) [place] # Eos # Lymph # (Auto) [place] # (Auto) Eos # (Auto) Seg Neutrophils % Seg Neuts % (Manual) Baso # (Auto) Lymphocytes % (Manual) Monocytes % (Manual) Eosinophils % (Manual) Basophils % (Manual) Seg Neutrophils # Seg Neutrophils # Man Lymphocytes # (Manual) Monocytes # (Manual) Eosinophils # (Manual) Nucleated RBC % Basophils # (Manual) PT INR APTT Heparin Anti-Xa Level ABG pH POC ABG pO2 ABG pO2 ABG HCO3 ABG O2 Saturation ABG Base Excess POC ABG pCO2 ABG Hemoglobin ABG Oxyhemoglobin ABG Glucose Oxyhemoglobin Sodium Potassium 3.5 L Chloride 107.8 H Carbon Dioxide BUN 37 H Creatinine Glucose 157 H POC Glucose 118 H 148 H Lactic Acid Calcium 8.2 L D Phosphorus Magnesium AST 48 H ALT 60 H Lactate Dehydrogenase 194 H CK-MB (CK-2) C-Reactive Protein 8.50 H NT-Pro-B Natriuret Pep Total Protein 5.5 L Albumin 2.8 L Arterial Blood Glucose Urine WBC (Auto) Urine Creatinine 12/01/19 12/02/19 12/02/19 18:04 00:05 05:16 WBC 11.4 H RBC Hgb Hct MCHC RDW 15.9 H MCV MCH Lymph % (Auto) [place] % (Auto) 9.9 H [place] # 1.1 H Eos # Lymph # (Auto) [place] # (Auto) Eos # (Auto) Seg Neutrophils % 70.3 H Seg Neuts % (Manual) Baso # (Auto) Lymphocytes % (Manual) Monocytes % (Manual) Eosinophils % (Manual) Basophils % (Manual) Seg Neutrophils # 8.0 H Seg Neutrophils # Man Lymphocytes # (Manual) Monocytes # (Manual) Eosinophils # (Manual) Nucleated RBC % Basophils # (Manual) PT INR APTT Heparin Anti-Xa Level ABG pH POC ABG pO2 ABG pO2 ABG HCO3 ABG O2 Saturation ABG Base Excess POC ABG pCO2 ABG Hemoglobin ABG Oxyhemoglobin ABG Glucose Oxyhemoglobin Sodium Potassium Chloride Carbon Dioxide BUN Creatinine Glucose POC Glucose 143 H 107 H Lactic Acid Calcium Phosphorus Magnesium AST ALT Lactate Dehydrogenase CK-MB (CK-2) C-Reactive Protein NT-Pro-B Natriuret Pep Total Protein Albumin Arterial Blood Glucose Urine WBC (Auto) Urine Creatinine 12/02/19 12/02/19 12/02/19 05:16 06:03 11:52 WBC RBC Hgb Hct MCHC RDW MCV MCH Lymph % (Auto) [place] % (Auto) [place] # Eos # Lymph # (Auto) [place] # (Auto) Eos # (Auto) Seg Neutrophils % Seg Neuts % (Manual) Baso # (Auto) Lymphocytes % (Manual) Monocytes % (Manual) Eosinophils % (Manual) Basophils % (Manual) Seg Neutrophils # Seg Neutrophils # Man Lymphocytes # (Manual) Monocytes # (Manual) Eosinophils # (Manual) Nucleated RBC % Basophils # (Manual) PT INR APTT Heparin Anti-Xa Level ABG pH POC ABG pO2 ABG pO2 ABG HCO3 ABG O2 Saturation ABG Base Excess POC ABG pCO2 ABG Hemoglobin ABG Oxyhemoglobin ABG Glucose Oxyhemoglobin Sodium 146 H Potassium Chloride Carbon Dioxide BUN 28 H Creatinine Glucose 123 H POC Glucose 110 H 152 H Lactic Acid Calcium Phosphorus Magnesium AST ALT Lactate Dehydrogenase CK-MB (CK-2) C-Reactive Protein NT-Pro-B Natriuret Pep Total Protein Albumin Arterial Blood Glucose Urine WBC (Auto) Urine Creatinine 12/02/19 12/02/19 12/02/19 12:58 17:58 23:36 WBC RBC Hgb Hct MCHC RDW MCV MCH Lymph % (Auto) [place] % (Auto) [place] # Eos # Lymph # (Auto) [place] # (Auto) Eos # (Auto) Seg Neutrophils % Seg Neuts % (Manual) Baso # (Auto) Lymphocytes % (Manual) Monocytes % (Manual) Eosinophils % (Manual) Basophils % (Manual) Seg Neutrophils # Seg Neutrophils # Man Lymphocytes # (Manual) Monocytes # (Manual) Eosinophils # (Manual) Nucleated RBC % Basophils # (Manual) PT INR APTT Heparin Anti-Xa Level ABG pH POC ABG pO2 78.1 L ABG pO2 ABG HCO3 ABG O2 Saturation ABG Base Excess POC ABG pCO2 ABG Hemoglobin ABG Oxyhemoglobin ABG Glucose Oxyhemoglobin Sodium Potassium Chloride Carbon Dioxide BUN Creatinine Glucose POC Glucose 120 H 123 H Lactic Acid Calcium Phosphorus Magnesium AST ALT Lactate Dehydrogenase CK-MB (CK-2) C-Reactive Protein NT-Pro-B Natriuret Pep Total Protein Albumin Arterial Blood Glucose Urine WBC (Auto) Urine Creatinine 12/03/19 12/03/19 12/03/19 06:03 06:14 11:46 WBC RBC Hgb Hct MCHC RDW MCV MCH Lymph % (Auto) [place] % (Auto) [place] # Eos # Lymph # (Auto) [place] # (Auto) Eos # (Auto) Seg Neutrophils % Seg Neuts % (Manual) Baso # (Auto) Lymphocytes % (Manual) Monocytes % (Manual) Eosinophils % (Manual) Basophils % (Manual) Seg Neutrophils # Seg Neutrophils # Man Lymphocytes # (Manual) Monocytes # (Manual) Eosinophils # (Manual) Nucleated RBC % Basophils # (Manual) PT INR APTT Heparin Anti-Xa Level ABG pH POC ABG pO2 ABG pO2 ABG HCO3 ABG O2 Saturation ABG Base Excess POC ABG pCO2 ABG Hemoglobin ABG Oxyhemoglobin ABG Glucose Oxyhemoglobin Sodium Potassium Chloride Carbon Dioxide BUN Creatinine Glucose POC Glucose 142 H 130 H Lactic Acid Calcium Phosphorus Magnesium AST ALT Lactate Dehydrogenase CK-MB (CK-2) C-Reactive Protein NT-Pro-B Natriuret Pep Total Protein Albumin Arterial Blood Glucose Urine WBC (Auto) 8.0 H Urine Creatinine 12/03/19 12/03/19 12/04/19 15:50 17:39 00:04 WBC RBC Hgb Hct MCHC RDW MCV MCH Lymph % (Auto) [place] % (Auto) [place] # Eos # Lymph # (Auto) [place] # (Auto) Eos # (Auto) Seg Neutrophils % Seg Neuts % (Manual) Baso # (Auto) Lymphocytes % (Manual) Monocytes % (Manual) Eosinophils % (Manual) Basophils % (Manual) Seg Neutrophils # Seg Neutrophils # Man Lymphocytes # (Manual) Monocytes # (Manual) Eosinophils # (Manual) Nucleated RBC % Basophils # (Manual) PT INR APTT Heparin Anti-Xa Level ABG pH POC ABG pO2 ABG pO2 ABG HCO3 ABG O2 Saturation ABG Base Excess POC ABG pCO2 ABG Hemoglobin ABG Oxyhemoglobin ABG Glucose Oxyhemoglobin Sodium Potassium Chloride Carbon Dioxide BUN Creatinine Glucose POC Glucose 146 H 133 H Lactic Acid Calcium Phosphorus 2.40 L Magnesium AST ALT Lactate Dehydrogenase CK-MB (CK-2) C-Reactive Protein NT-Pro-B Natriuret Pep Total Protein Albumin Arterial Blood Glucose Urine WBC (Auto) Urine Creatinine 12/04/19 12/04/19 12/04/19 03:58 03:58 05:22 WBC 12.5 H RBC Hgb 11.2 L Hct 35.2 L MCHC RDW 16.0 H MCV MCH Lymph % (Auto) [place] % (Auto) 9.6 H [place] # 1.2 H Eos # 0.5 H Lymph # (Auto) [place] # (Auto) Eos # (Auto) Seg Neutrophils % Seg Neuts % (Manual) Baso # (Auto) Lymphocytes % (Manual) Monocytes % (Manual) Eosinophils % (Manual) Basophils % (Manual) Seg Neutrophils # 8.6 H Seg Neutrophils # Man Lymphocytes # (Manual) Monocytes # (Manual) Eosinophils # (Manual) Nucleated RBC % Basophils # (Manual) PT INR APTT Heparin Anti-Xa Level ABG pH POC ABG pO2 ABG pO2 ABG HCO3 ABG O2 Saturation ABG Base Excess POC ABG pCO2 ABG Hemoglobin ABG Oxyhemoglobin ABG Glucose Oxyhemoglobin Sodium 146 H Potassium Chloride 108.6 H Carbon Dioxide BUN 30 H Creatinine 0.7 L Glucose 121 H POC Glucose 132 H Lactic Acid Calcium Phosphorus Magnesium AST ALT Lactate Dehydrogenase CK-MB (CK-2) C-Reactive Protein NT-Pro-B Natriuret Pep Total Protein Albumin Arterial Blood Glucose Urine WBC (Auto) Urine Creatinine 12/04/19 12/04/19 12/05/19 13:26 18:43 00:19 WBC RBC Hgb Hct MCHC RDW MCV MCH Lymph % (Auto) [place] % (Auto) [place] # Eos # Lymph # (Auto) [place] # (Auto) Eos # (Auto) Seg Neutrophils % Seg Neuts % (Manual) Baso # (Auto) Lymphocytes % (Manual) Monocytes % (Manual) Eosinophils % (Manual) Basophils % (Manual) Seg Neutrophils # Seg Neutrophils # Man Lymphocytes # (Manual) Monocytes # (Manual) Eosinophils # (Manual) Nucleated RBC % Basophils # (Manual) PT INR APTT Heparin Anti-Xa Level ABG pH POC ABG pO2 ABG pO2 ABG HCO3 ABG O2 Saturation ABG Base Excess POC ABG pCO2 ABG Hemoglobin ABG Oxyhemoglobin ABG Glucose Oxyhemoglobin Sodium Potassium Chloride Carbon Dioxide BUN Creatinine Glucose POC Glucose 185 H 156 H 150 H Lactic Acid Calcium Phosphorus Magnesium AST ALT Lactate Dehydrogenase CK-MB (CK-2) C-Reactive Protein NT-Pro-B Natriuret Pep Total Protein Albumin Arterial Blood Glucose Urine WBC (Auto) Urine Creatinine 12/05/19 12/05/19 12/05/19 03:37 03:37 05:14 WBC 16.3 H RBC Hgb 11.4 L Hct MCHC RDW 15.6 H MCV MCH Lymph % (Auto) 9.9 L [place] % (Auto) 9.7 H [place] # 1.6 H Eos # Lymph # (Auto) [place] # (Auto) Eos # (Auto) Seg Neutrophils % 78.0 H Seg Neuts % (Manual) Baso # (Auto) Lymphocytes % (Manual) Monocytes % (Manual) Eosinophils % (Manual) Basophils % (Manual) Seg Neutrophils # 12.7 H Seg Neutrophils # Man Lymphocytes # (Manual) Monocytes # (Manual) Eosinophils # (Manual) Nucleated RBC % Basophils # (Manual) PT INR APTT Heparin Anti-Xa Level ABG pH POC ABG pO2 ABG pO2 ABG HCO3 ABG O2 Saturation ABG Base Excess POC ABG pCO2 ABG Hemoglobin ABG Oxyhemoglobin ABG Glucose Oxyhemoglobin Sodium 146 H Potassium Chloride 107.2 H Carbon Dioxide BUN 27 H Creatinine 0.7 L Glucose 171 H POC Glucose 168 H Lactic Acid Calcium Phosphorus Magnesium AST ALT Lactate Dehydrogenase CK-MB (CK-2) C-Reactive Protein NT-Pro-B Natriuret Pep Total Protein Albumin Arterial Blood Glucose Urine WBC (Auto) Urine Creatinine 12/05/19 12/05/19 12/05/19 12:31 18:10 23:58 WBC RBC Hgb Hct MCHC RDW MCV MCH Lymph % (Auto) [place] % (Auto) [place] # Eos # Lymph # (Auto) [place] # (Auto) Eos # (Auto) Seg Neutrophils % Seg Neuts % (Manual) Baso # (Auto) Lymphocytes % (Manual) Monocytes % (Manual) Eosinophils % (Manual) Basophils % (Manual) Seg Neutrophils # Seg Neutrophils # Man Lymphocytes # (Manual) Monocytes # (Manual) Eosinophils # (Manual) Nucleated RBC % Basophils # (Manual) PT INR APTT Heparin Anti-Xa Level ABG pH POC ABG pO2 ABG pO2 ABG HCO3 ABG O2 Saturation ABG Base Excess POC ABG pCO2 ABG Hemoglobin ABG Oxyhemoglobin ABG Glucose Oxyhemoglobin Sodium Potassium Chloride Carbon Dioxide BUN Creatinine Glucose POC Glucose 159 H 198 H 115 H Lactic Acid Calcium Phosphorus Magnesium AST ALT Lactate Dehydrogenase CK-MB (CK-2) C-Reactive Protein NT-Pro-B Natriuret Pep Total Protein Albumin Arterial Blood Glucose Urine WBC (Auto) Urine Creatinine 12/06/19 12/06/19 12/06/19 05:24 05:24 05:25 WBC 14.9 H RBC Hgb 10.8 L Hct 34.0 L MCHC RDW 15.6 H MCV MCH Lymph % (Auto) 10.7 L [place] % (Auto) 8.3 H [place] # 1.2 H Eos # Lymph # (Auto) [place] # (Auto) Eos # (Auto) Seg Neutrophils % 78.7 H Seg Neuts % (Manual) Baso # (Auto) Lymphocytes % (Manual) Monocytes % (Manual) Eosinophils % (Manual) Basophils % (Manual) Seg Neutrophils # 11.7 H Seg Neutrophils # Man Lymphocytes # (Manual) Monocytes # (Manual) Eosinophils # (Manual) Nucleated RBC % Basophils # (Manual) PT INR APTT Heparin Anti-Xa Level ABG pH POC ABG pO2 ABG pO2 ABG HCO3 ABG O2 Saturation ABG Base Excess POC ABG pCO2 ABG Hemoglobin ABG Oxyhemoglobin ABG Glucose Oxyhemoglobin Sodium 148 H Potassium 5.1 H Chloride 107.6 H Carbon Dioxide BUN 27 H Creatinine 0.7 L Glucose 155 H POC Glucose 157 H Lactic Acid Calcium Phosphorus Magnesium AST ALT Lactate Dehydrogenase CK-MB (CK-2) C-Reactive Protein NT-Pro-B Natriuret Pep Total Protein Albumin Arterial Blood Glucose Urine WBC (Auto) Urine Creatinine 12/07/19 12/07/19 12/07/19 00:13 05:34 11:33 WBC RBC Hgb Hct MCHC RDW MCV MCH Lymph % (Auto) [place] % (Auto) [place] # Eos # Lymph # (Auto) [place] # (Auto) Eos # (Auto) Seg Neutrophils % Seg Neuts % (Manual) Baso # (Auto) Lymphocytes % (Manual) Monocytes % (Manual) Eosinophils % (Manual) Basophils % (Manual) Seg Neutrophils # Seg Neutrophils # Man Lymphocytes # (Manual) Monocytes # (Manual) Eosinophils # (Manual) Nucleated RBC % Basophils # (Manual) PT INR APTT Heparin Anti-Xa Level ABG pH POC ABG pO2 ABG pO2 ABG HCO3 ABG O2 Saturation ABG Base Excess POC ABG pCO2 ABG Hemoglobin ABG Oxyhemoglobin ABG Glucose Oxyhemoglobin Sodium Potassium Chloride Carbon Dioxide BUN Creatinine Glucose POC Glucose 142 H 111 H 169 H Lactic Acid Calcium Phosphorus Magnesium AST ALT Lactate Dehydrogenase CK-MB (CK-2) C-Reactive Protein NT-Pro-B Natriuret Pep Total Protein Albumin Arterial Blood Glucose Urine WBC (Auto) Urine Creatinine 12/07/19 12/07/19 12/07/19 12:41 13:25 18:19 WBC 12.4 H RBC 3.53 L Hgb 10.2 L Hct 32.1 L MCHC RDW 15.3 H MCV MCH Lymph % (Auto) 10.6 L [place] % (Auto) 7.8 H [place] # 1.0 H Eos # Lymph # (Auto) [place] # (Auto) Eos # (Auto) Seg Neutrophils % 77.6 H Seg Neuts % (Manual) Baso # (Auto) Lymphocytes % (Manual) Monocytes % (Manual) Eosinophils % (Manual) Basophils % (Manual) Seg Neutrophils # 9.6 H Seg Neutrophils # Man Lymphocytes # (Manual) Monocytes # (Manual) Eosinophils # (Manual) Nucleated RBC % Basophils # (Manual) PT INR APTT Heparin Anti-Xa Level ABG pH POC ABG pO2 ABG pO2 ABG HCO3 ABG O2 Saturation ABG Base Excess POC ABG pCO2 ABG Hemoglobin ABG Oxyhemoglobin ABG Glucose Oxyhemoglobin Sodium 149 H Potassium Chloride 108.4 H Carbon Dioxide BUN 26 H Creatinine 0.6 L Glucose 149 H POC Glucose 164 H Lactic Acid Calcium Phosphorus Magnesium 2.60 H AST 121 H ALT 145 H Lactate Dehydrogenase CK-MB (CK-2) C-Reactive Protein NT-Pro-B Natriuret Pep Total Protein Albumin 2.6 L Arterial Blood Glucose Urine WBC (Auto) Urine Creatinine 12/07/19 12/08/19 12/08/19 22:25 00:02 03:55 WBC 13.3 H RBC 3.40 L Hgb 9.7 L Hct 30.8 L MCHC 31 L RDW 15.5 H MCV MCH Lymph % (Auto) [place] % (Auto) 8.1 H [place] # 1.1 H Eos # Lymph # (Auto) [place] # (Auto) Eos # (Auto) Seg Neutrophils % 73.0 H Seg Neuts % (Manual) Baso # (Auto) Lymphocytes % (Manual) Monocytes % (Manual) Eosinophils % (Manual) Basophils % (Manual) Seg Neutrophils # 9.7 H Seg Neutrophils # Man Lymphocytes # (Manual) Monocytes # (Manual) Eosinophils # (Manual) Nucleated RBC % Basophils # (Manual) PT INR APTT Heparin Anti-Xa Level 0.12 L ABG pH POC ABG pO2 ABG pO2 ABG HCO3 ABG O2 Saturation ABG Base Excess POC ABG pCO2 ABG Hemoglobin ABG Oxyhemoglobin ABG Glucose Oxyhemoglobin Sodium Potassium Chloride Carbon Dioxide BUN Creatinine Glucose POC Glucose 151 H Lactic Acid Calcium Phosphorus Magnesium AST ALT Lactate Dehydrogenase CK-MB (CK-2) C-Reactive Protein NT-Pro-B Natriuret Pep Total Protein Albumin Arterial Blood Glucose Urine WBC (Auto) Urine Creatinine 12/08/19 12/08/19 12/08/19 03:55 05:21 06:01 WBC RBC Hgb Hct MCHC RDW MCV MCH Lymph % (Auto) [place] % (Auto) [place] # Eos # Lymph # (Auto) [place] # (Auto) Eos # (Auto) Seg Neutrophils % Seg Neuts % (Manual) Baso # (Auto) Lymphocytes % (Manual) Monocytes % (Manual) Eosinophils % (Manual) Basophils % (Manual) Seg Neutrophils # Seg Neutrophils # Man Lymphocytes # (Manual) Monocytes # (Manual) Eosinophils # (Manual) Nucleated RBC % Basophils # (Manual) PT INR APTT Heparin Anti-Xa Level 0.20 L ABG pH POC ABG pO2 ABG pO2 ABG HCO3 ABG O2 Saturation ABG Base Excess POC ABG pCO2 ABG Hemoglobin ABG Oxyhemoglobin ABG Glucose Oxyhemoglobin Sodium 149 H Potassium Chloride 108.0 H Carbon Dioxide BUN 28 H Creatinine 0.6 L Glucose 144 H POC Glucose 143 H Lactic Acid Calcium Phosphorus Magnesium AST 98 H ALT 145 H Lactate Dehydrogenase CK-MB (CK-2) C-Reactive Protein NT-Pro-B Natriuret Pep Total Protein 6.0 L Albumin 2.4 L Arterial Blood Glucose Urine WBC (Auto) Urine Creatinine 12/08/19 12/08/19 12/08/19 12:08 18:11 23:53 WBC RBC Hgb Hct MCHC RDW MCV MCH Lymph % (Auto) [place] % (Auto) [place] # Eos # Lymph # (Auto) [place] # (Auto) Eos # (Auto) Seg Neutrophils % Seg Neuts % (Manual) Baso # (Auto) Lymphocytes % (Manual) Monocytes % (Manual) Eosinophils % (Manual) Basophils % (Manual) Seg Neutrophils # Seg Neutrophils # Man Lymphocytes # (Manual) Monocytes # (Manual) Eosinophils # (Manual) Nucleated RBC % Basophils # (Manual) PT INR APTT Heparin Anti-Xa Level ABG pH POC ABG pO2 ABG pO2 ABG HCO3 ABG O2 Saturation ABG Base Excess POC ABG pCO2 ABG Hemoglobin ABG Oxyhemoglobin ABG Glucose Oxyhemoglobin Sodium Potassium Chloride Carbon Dioxide BUN Creatinine Glucose POC Glucose 172 H 122 H 162 H Lactic Acid Calcium Phosphorus Magnesium AST ALT Lactate Dehydrogenase CK-MB (CK-2) C-Reactive Protein NT-Pro-B Natriuret Pep Total Protein Albumin Arterial Blood Glucose Urine WBC (Auto) Urine Creatinine 12/09/19 12/09/19 12/09/19 04:03 04:03 05:53 WBC RBC Hgb 9.1 L Hct 28.9 L MCHC RDW MCV MCH Lymph % (Auto) [place] % (Auto) [place] # Eos # Lymph # (Auto) [place] # (Auto) Eos # (Auto) Seg Neutrophils % Seg Neuts % (Manual) Baso # (Auto) Lymphocytes % (Manual) Monocytes % (Manual) Eosinophils % (Manual) Basophils % (Manual) Seg Neutrophils # Seg Neutrophils # Man Lymphocytes # (Manual) Monocytes # (Manual) Eosinophils # (Manual) Nucleated RBC % Basophils # (Manual) PT INR APTT Heparin Anti-Xa Level 0.15 L ABG pH POC ABG pO2 ABG pO2 ABG HCO3 ABG O2 Saturation ABG Base Excess POC ABG pCO2 ABG Hemoglobin ABG Oxyhemoglobin ABG Glucose Oxyhemoglobin Sodium Potassium Chloride Carbon Dioxide BUN Creatinine Glucose POC Glucose 124 H Lactic Acid Calcium Phosphorus Magnesium AST ALT Lactate Dehydrogenase CK-MB (CK-2) C-Reactive Protein NT-Pro-B Natriuret Pep Total Protein Albumin Arterial Blood Glucose Urine WBC (Auto) Urine Creatinine 12/09/19 12/09/19 12/10/19 09:43 12:41 00:13 WBC RBC Hgb Hct MCHC RDW MCV MCH Lymph % (Auto) [place] % (Auto) [place] # Eos # Lymph # (Auto) [place] # (Auto) Eos # (Auto) Seg Neutrophils % Seg Neuts % (Manual) Baso # (Auto) Lymphocytes % (Manual) Monocytes % (Manual) Eosinophils % (Manual) Basophils % (Manual) Seg Neutrophils # Seg Neutrophils # Man Lymphocytes # (Manual) Monocytes # (Manual) Eosinophils # (Manual) Nucleated RBC % Basophils # (Manual) PT INR APTT Heparin Anti-Xa Level ABG pH POC ABG pO2 ABG pO2 ABG HCO3 ABG O2 Saturation ABG Base Excess POC ABG pCO2 ABG Hemoglobin ABG Oxyhemoglobin ABG Glucose Oxyhemoglobin Sodium Potassium Chloride Carbon Dioxide BUN 25 H Creatinine 0.6 L Glucose 131 H POC Glucose 109 H 120 H Lactic Acid Calcium Phosphorus Magnesium AST ALT Lactate Dehydrogenase CK-MB (CK-2) C-Reactive Protein NT-Pro-B Natriuret Pep Total Protein Albumin Arterial Blood Glucose Urine WBC (Auto) Urine Creatinine 12/10/19 12/10/19 12/10/19 04:14 04:14 12:00 WBC 13.3 H RBC 3.34 L Hgb 9.6 L Hct 30.4 L MCHC RDW 15.4 H MCV MCH Lymph % (Auto) [place] % (Auto) [place] # Eos # Lymph # (Auto) [place] # (Auto) Eos # (Auto) Seg Neutrophils % Seg Neuts % (Manual) 75.0 H Baso # (Auto) Lymphocytes % (Manual) 13.0 L Monocytes % (Manual) 8.0 H Eosinophils % (Manual) Basophils % (Manual) 2.0 H Seg Neutrophils # Seg Neutrophils # Man 10.0 H Lymphocytes # (Manual) Monocytes # (Manual) 1.1 H Eosinophils # (Manual) Nucleated RBC % Basophils # (Manual) 0.3 H PT INR APTT Heparin Anti-Xa Level ABG pH POC ABG pO2 ABG pO2 ABG HCO3 ABG O2 Saturation ABG Base Excess POC ABG pCO2 ABG Hemoglobin ABG Oxyhemoglobin ABG Glucose Oxyhemoglobin Sodium 147 H Potassium Chloride 108.3 H Carbon Dioxide BUN 21 H Creatinine 0.6 L Glucose 104 H POC Glucose 133 H Lactic Acid Calcium Phosphorus Magnesium AST ALT Lactate Dehydrogenase CK-MB (CK-2) C-Reactive Protein NT-Pro-B Natriuret Pep Total Protein Albumin Arterial Blood Glucose Urine WBC (Auto) Urine Creatinine 12/10/19 12/10/19 12/11/19 18:44 21:20 00:08 WBC 14.9 H RBC 3.36 L Hgb 9.6 L Hct 30.5 L MCHC RDW 15.4 H MCV MCH Lymph % (Auto) [place] % (Auto) [place] # Eos # Lymph # (Auto) [place] # (Auto) Eos # (Auto) Seg Neutrophils % Seg Neuts % (Manual) Baso # (Auto) Lymphocytes % (Manual) Monocytes % (Manual) Eosinophils % (Manual) Basophils % (Manual) Seg Neutrophils # Seg Neutrophils # Man Lymphocytes # (Manual) Monocytes # (Manual) Eosinophils # (Manual) Nucleated RBC % Basophils # (Manual) PT INR APTT Heparin Anti-Xa Level ABG pH POC ABG pO2 ABG pO2 ABG HCO3 ABG O2 Saturation ABG Base Excess POC ABG pCO2 ABG Hemoglobin ABG Oxyhemoglobin ABG Glucose Oxyhemoglobin Sodium Potassium Chloride Carbon Dioxide BUN Creatinine Glucose POC Glucose 119 H 134 H Lactic Acid Calcium Phosphorus Magnesium AST ALT Lactate Dehydrogenase CK-MB (CK-2) C-Reactive Protein NT-Pro-B Natriuret Pep Total Protein Albumin Arterial Blood Glucose Urine WBC (Auto) Urine Creatinine 12/11/19 12/11/19 12/11/19 03:54 07:28 08:36 WBC 11.9 H RBC 3.25 L Hgb 9.6 L Hct 29.2 L MCHC RDW 15.7 H MCV MCH Lymph % (Auto) [place] % (Auto) [place] # Eos # Lymph # (Auto) [place] # (Auto) Eos # (Auto) Seg Neutrophils % Seg Neuts % (Manual) Baso # (Auto) Lymphocytes % (Manual) Monocytes % (Manual) Eosinophils % (Manual) Basophils % (Manual) Seg Neutrophils # Seg Neutrophils # Man Lymphocytes # (Manual) Monocytes # (Manual) Eosinophils # (Manual) Nucleated RBC % Basophils # (Manual) PT INR APTT Heparin Anti-Xa Level 0.10 L 0.16 L ABG pH POC ABG pO2 ABG pO2 ABG HCO3 ABG O2 Saturation ABG Base Excess POC ABG pCO2 ABG Hemoglobin ABG Oxyhemoglobin ABG Glucose Oxyhemoglobin Sodium Potassium Chloride Carbon Dioxide BUN Creatinine Glucose POC Glucose Lactic Acid Calcium Phosphorus Magnesium AST ALT Lactate Dehydrogenase CK-MB (CK-2) C-Reactive Protein NT-Pro-B Natriuret Pep Total Protein Albumin Arterial Blood Glucose Urine WBC (Auto) Urine Creatinine 12/11/19 12/11/19 12/11/19 08:36 11:45 17:15 WBC RBC Hgb Hct MCHC RDW MCV MCH Lymph % (Auto) [place] % (Auto) [place] # Eos # Lymph # (Auto) [place] # (Auto) Eos # (Auto) Seg Neutrophils % Seg Neuts % (Manual) Baso # (Auto) Lymphocytes % (Manual) Monocytes % (Manual) Eosinophils % (Manual) Basophils % (Manual) Seg Neutrophils # Seg Neutrophils # Man Lymphocytes # (Manual) Monocytes # (Manual) Eosinophils # (Manual) Nucleated RBC % Basophils # (Manual) PT INR APTT Heparin Anti-Xa Level ABG pH POC ABG pO2 ABG pO2 ABG HCO3 ABG O2 Saturation ABG Base Excess POC ABG pCO2 ABG Hemoglobin ABG Oxyhemoglobin ABG Glucose Oxyhemoglobin Sodium Potassium Chloride Carbon Dioxide BUN Creatinine 0.5 L Glucose 128 H POC Glucose 136 H 109 H Lactic Acid Calcium Phosphorus Magnesium AST ALT Lactate Dehydrogenase CK-MB (CK-2) C-Reactive Protein NT-Pro-B Natriuret Pep Total Protein Albumin Arterial Blood Glucose Urine WBC (Auto) Urine Creatinine 12/12/19 12/12/19 12/12/19 00:03 05:53 05:53 WBC RBC Hgb 8.8 L Hct 27.6 L MCHC RDW MCV MCH Lymph % (Auto) [place] % (Auto) [place] # Eos # Lymph # (Auto) [place] # (Auto) Eos # (Auto) Seg Neutrophils % Seg Neuts % (Manual) Baso # (Auto) Lymphocytes % (Manual) Monocytes % (Manual) Eosinophils % (Manual) Basophils % (Manual) Seg Neutrophils # Seg Neutrophils # Man Lymphocytes # (Manual) Monocytes # (Manual) Eosinophils # (Manual) Nucleated RBC % Basophils # (Manual) PT INR APTT Heparin Anti-Xa Level 0.22 L ABG pH POC ABG pO2 ABG pO2 ABG HCO3 ABG O2 Saturation ABG Base Excess POC ABG pCO2 ABG Hemoglobin ABG Oxyhemoglobin ABG Glucose Oxyhemoglobin Sodium Potassium Chloride Carbon Dioxide BUN Creatinine Glucose POC Glucose 116 H Lactic Acid Calcium Phosphorus Magnesium AST ALT Lactate Dehydrogenase CK-MB (CK-2) C-Reactive Protein NT-Pro-B Natriuret Pep Total Protein Albumin Arterial Blood Glucose Urine WBC (Auto) Urine Creatinine 12/12/19 12/12/19 12/12/19 09:38 12:18 17:44 WBC RBC Hgb Hct MCHC RDW MCV MCH Lymph % (Auto) [place] % (Auto) [place] # Eos # Lymph # (Auto) [place] # (Auto) Eos # (Auto) Seg Neutrophils % Seg Neuts % (Manual) Baso # (Auto) Lymphocytes % (Manual) Monocytes % (Manual) Eosinophils % (Manual) Basophils % (Manual) Seg Neutrophils # Seg Neutrophils # Man Lymphocytes # (Manual) Monocytes # (Manual) Eosinophils # (Manual) Nucleated RBC % Basophils # (Manual) PT INR APTT Heparin Anti-Xa Level ABG pH POC ABG pO2 ABG pO2 ABG HCO3 ABG O2 Saturation ABG Base Excess POC ABG pCO2 ABG Hemoglobin ABG Oxyhemoglobin ABG Glucose Oxyhemoglobin Sodium Potassium Chloride Carbon Dioxide BUN Creatinine Glucose POC Glucose 115 H 146 H 146 H Lactic Acid Calcium Phosphorus Magnesium AST ALT Lactate Dehydrogenase CK-MB (CK-2) C-Reactive Protein NT-Pro-B Natriuret Pep Total Protein Albumin Arterial Blood Glucose Urine WBC (Auto) Urine Creatinine 12/12/19 12/13/19 12/13/19 23:33 05:32 05:32 WBC 13.1 H RBC 3.27 L Hgb 9.5 L Hct 29.3 L MCHC RDW 15.6 H MCV MCH Lymph % (Auto) [place] % (Auto) [place] # Eos # Lymph # (Auto) [place] # (Auto) Eos # (Auto) Seg Neutrophils % Seg Neuts % (Manual) 74.0 H Baso # (Auto) Lymphocytes % (Manual) 8.0 L Monocytes % (Manual) 9.0 H Eosinophils % (Manual) 5.0 H Basophils % (Manual) Seg Neutrophils # Seg Neutrophils # Man 9.7 H Lymphocytes # (Manual) 1.0 L Monocytes # (Manual) 1.2 H Eosinophils # (Manual) 0.7 H Nucleated RBC % Basophils # (Manual) PT INR APTT Heparin Anti-Xa Level 0.20 L ABG pH POC ABG pO2 ABG pO2 ABG HCO3 ABG O2 Saturation ABG Base Excess POC ABG pCO2 ABG Hemoglobin ABG Oxyhemoglobin ABG Glucose Oxyhemoglobin Sodium Potassium Chloride Carbon Dioxide BUN Creatinine Glucose POC Glucose 126 H Lactic Acid Calcium Phosphorus Magnesium AST ALT Lactate Dehydrogenase CK-MB (CK-2) C-Reactive Protein NT-Pro-B Natriuret Pep Total Protein Albumin Arterial Blood Glucose Urine WBC (Auto) Urine Creatinine 12/13/19 12/13/19 12/13/19 05:32 05:46 11:57 WBC RBC Hgb Hct MCHC RDW MCV MCH Lymph % (Auto) [place] % (Auto) [place] # Eos # Lymph # (Auto) [place] # (Auto) Eos # (Auto) Seg Neutrophils % Seg Neuts % (Manual) Baso # (Auto) Lymphocytes % (Manual) Monocytes % (Manual) Eosinophils % (Manual) Basophils % (Manual) Seg Neutrophils # Seg Neutrophils # Man Lymphocytes # (Manual) Monocytes # (Manual) Eosinophils # (Manual) Nucleated RBC % Basophils # (Manual) PT INR APTT Heparin Anti-Xa Level ABG pH POC ABG pO2 ABG pO2 ABG HCO3 ABG O2 Saturation ABG Base Excess POC ABG pCO2 ABG Hemoglobin ABG Oxyhemoglobin ABG Glucose Oxyhemoglobin Sodium Potassium Chloride Carbon Dioxide 31 H BUN Creatinine 0.6 L Glucose 114 H POC Glucose 118 H 133 H Lactic Acid Calcium Phosphorus Magnesium AST ALT Lactate Dehydrogenase CK-MB (CK-2) C-Reactive Protein NT-Pro-B Natriuret Pep Total Protein Albumin Arterial Blood Glucose Urine WBC (Auto) Urine Creatinine 12/13/19 12/13/19 12/14/19 17:44 23:46 05:32 WBC RBC Hgb Hct MCHC RDW MCV MCH Lymph % (Auto) [place] % (Auto) [place] # Eos # Lymph # (Auto) [place] # (Auto) Eos # (Auto) Seg Neutrophils % Seg Neuts % (Manual) Baso # (Auto) Lymphocytes % (Manual) Monocytes % (Manual) Eosinophils % (Manual) Basophils % (Manual) Seg Neutrophils # Seg Neutrophils # Man Lymphocytes # (Manual) Monocytes # (Manual) Eosinophils # (Manual) Nucleated RBC % Basophils # (Manual) PT INR APTT Heparin Anti-Xa Level ABG pH POC ABG pO2 ABG pO2 ABG HCO3 ABG O2 Saturation ABG Base Excess POC ABG pCO2 ABG Hemoglobin ABG Oxyhemoglobin ABG Glucose Oxyhemoglobin Sodium Potassium Chloride Carbon Dioxide BUN Creatinine Glucose POC Glucose 161 H 126 H 139 H Lactic Acid Calcium Phosphorus Magnesium AST ALT Lactate Dehydrogenase CK-MB (CK-2) C-Reactive Protein NT-Pro-B Natriuret Pep Total Protein Albumin Arterial Blood Glucose Urine WBC (Auto) Urine Creatinine 12/14/19 12/14/19 12/14/19 06:03 06:03 09:37 WBC RBC Hgb 9.6 L Hct 30.4 L MCHC RDW MCV MCH Lymph % (Auto) [place] % (Auto) [place] # Eos # Lymph # (Auto) [place] # (Auto) Eos # (Auto) Seg Neutrophils % Seg Neuts % (Manual) Baso # (Auto) Lymphocytes % (Manual) Monocytes % (Manual) Eosinophils % (Manual) Basophils % (Manual) Seg Neutrophils # Seg Neutrophils # Man Lymphocytes # (Manual) Monocytes # (Manual) Eosinophils # (Manual) Nucleated RBC % Basophils # (Manual) PT INR APTT Heparin Anti-Xa Level 0.24 L ABG pH POC ABG pO2 ABG pO2 ABG HCO3 ABG O2 Saturation ABG Base Excess POC ABG pCO2 ABG Hemoglobin ABG Oxyhemoglobin ABG Glucose Oxyhemoglobin Sodium Potassium Chloride Carbon Dioxide BUN Creatinine 0.6 L Glucose 162 H POC Glucose Lactic Acid Calcium Phosphorus Magnesium AST 71 H ALT 118 H Lactate Dehydrogenase CK-MB (CK-2) C-Reactive Protein NT-Pro-B Natriuret Pep Total Protein 6.2 L Albumin 2.3 L Arterial Blood Glucose Urine WBC (Auto) Urine Creatinine 12/14/19 12/14/19 12/15/19 12:06 18:18 00:19 WBC RBC Hgb Hct MCHC RDW MCV MCH Lymph % (Auto) [place] % (Auto) [place] # Eos # Lymph # (Auto) [place] # (Auto) Eos # (Auto) Seg Neutrophils % Seg Neuts % (Manual) Baso # (Auto) Lymphocytes % (Manual) Monocytes % (Manual) Eosinophils % (Manual) Basophils % (Manual) Seg Neutrophils # Seg Neutrophils # Man Lymphocytes # (Manual) Monocytes # (Manual) Eosinophils # (Manual) Nucleated RBC % Basophils # (Manual) PT INR APTT Heparin Anti-Xa Level ABG pH POC ABG pO2 ABG pO2 ABG HCO3 ABG O2 Saturation ABG Base Excess POC ABG pCO2 ABG Hemoglobin ABG Oxyhemoglobin ABG Glucose Oxyhemoglobin Sodium Potassium Chloride Carbon Dioxide BUN Creatinine Glucose POC Glucose 147 H 166 H 123 H Lactic Acid Calcium Phosphorus Magnesium AST ALT Lactate Dehydrogenase CK-MB (CK-2) C-Reactive Protein NT-Pro-B Natriuret Pep Total Protein Albumin Arterial Blood Glucose Urine WBC (Auto) Urine Creatinine 12/15/19 12/15/19 12/15/19 05:28 05:29 05:29 WBC 14.9 H RBC 3.19 L Hgb 9.1 L Hct 28.7 L MCHC RDW 16.0 H MCV MCH Lymph % (Auto) [place] % (Auto) [place] # Eos # Lymph # (Auto) [place] # (Auto) Eos # (Auto) Seg Neutrophils % Seg Neuts % (Manual) Baso # (Auto) Lymphocytes % (Manual) Monocytes % (Manual) Eosinophils % (Manual) Basophils % (Manual) Seg Neutrophils # Seg Neutrophils # Man Lymphocytes # (Manual) Monocytes # (Manual) Eosinophils # (Manual) Nucleated RBC % Basophils # (Manual) PT INR APTT Heparin Anti-Xa Level 0.19 L ABG pH POC ABG pO2 ABG pO2 ABG HCO3 ABG O2 Saturation ABG Base Excess POC ABG pCO2 ABG Hemoglobin ABG Oxyhemoglobin ABG Glucose Oxyhemoglobin Sodium Potassium Chloride Carbon Dioxide BUN Creatinine 0.6 L Glucose 110 H POC Glucose Lactic Acid Calcium Phosphorus Magnesium AST ALT Lactate Dehydrogenase CK-MB (CK-2) C-Reactive Protein NT-Pro-B Natriuret Pep Total Protein Albumin Arterial Blood Glucose Urine WBC (Auto) Urine Creatinine 12/15/19 12/15/19 12/15/19 05:53 11:50 17:26 WBC RBC Hgb Hct MCHC RDW MCV MCH Lymph % (Auto) [place] % (Auto) [place] # Eos # Lymph # (Auto) [place] # (Auto) Eos # (Auto) Seg Neutrophils % Seg Neuts % (Manual) Baso # (Auto) Lymphocytes % (Manual) Monocytes % (Manual) Eosinophils % (Manual) Basophils % (Manual) Seg Neutrophils # Seg Neutrophils # Man Lymphocytes # (Manual) Monocytes # (Manual) Eosinophils # (Manual) Nucleated RBC % Basophils # (Manual) PT INR APTT Heparin Anti-Xa Level ABG pH POC ABG pO2 ABG pO2 ABG HCO3 ABG O2 Saturation ABG Base Excess POC ABG pCO2 ABG Hemoglobin ABG Oxyhemoglobin ABG Glucose Oxyhemoglobin Sodium Potassium Chloride Carbon Dioxide BUN Creatinine Glucose POC Glucose 119 H 132 H 128 H Lactic Acid Calcium Phosphorus Magnesium AST ALT Lactate Dehydrogenase CK-MB (CK-2) C-Reactive Protein NT-Pro-B Natriuret Pep Total Protein Albumin Arterial Blood Glucose Urine WBC (Auto) Urine Creatinine 12/15/19 12/16/19 12/16/19 23:11 05:30 05:46 WBC RBC Hgb 8.8 L Hct 27.9 L MCHC RDW MCV MCH Lymph % (Auto) [place] % (Auto) [place] # Eos # Lymph # (Auto) [place] # (Auto) Eos # (Auto) Seg Neutrophils % Seg Neuts % (Manual) Baso # (Auto) Lymphocytes % (Manual) Monocytes % (Manual) Eosinophils % (Manual) Basophils % (Manual) Seg Neutrophils # Seg Neutrophils # Man Lymphocytes # (Manual) Monocytes # (Manual) Eosinophils # (Manual) Nucleated RBC % Basophils # (Manual) PT INR APTT Heparin Anti-Xa Level ABG pH POC ABG pO2 ABG pO2 ABG HCO3 ABG O2 Saturation ABG Base Excess POC ABG pCO2 ABG Hemoglobin ABG Oxyhemoglobin ABG Glucose Oxyhemoglobin Sodium Potassium Chloride Carbon Dioxide BUN Creatinine Glucose POC Glucose 150 H 134 H Lactic Acid Calcium Phosphorus Magnesium AST ALT Lactate Dehydrogenase CK-MB (CK-2) C-Reactive Protein NT-Pro-B Natriuret Pep Total Protein Albumin Arterial Blood Glucose Urine WBC (Auto) Urine Creatinine 12/16/19 12/16/19 12/16/19 05:46 05:46 11:44 WBC RBC Hgb Hct MCHC RDW MCV MCH Lymph % (Auto) [place] % (Auto) [place] # Eos # Lymph # (Auto) [place] # (Auto) Eos # (Auto) Seg Neutrophils % Seg Neuts % (Manual) Baso # (Auto) Lymphocytes % (Manual) Monocytes % (Manual) Eosinophils % (Manual) Basophils % (Manual) Seg Neutrophils # Seg Neutrophils # Man Lymphocytes # (Manual) Monocytes # (Manual) Eosinophils # (Manual) Nucleated RBC % Basophils # (Manual) PT INR APTT Heparin Anti-Xa Level 0.20 L ABG pH POC ABG pO2 ABG pO2 ABG HCO3 ABG O2 Saturation ABG Base Excess POC ABG pCO2 ABG Hemoglobin ABG Oxyhemoglobin ABG Glucose Oxyhemoglobin Sodium Potassium Chloride Carbon Dioxide 31 H BUN Creatinine 0.5 L Glucose 147 H POC Glucose 164 H Lactic Acid Calcium Phosphorus Magnesium AST ALT Lactate Dehydrogenase CK-MB (CK-2) C-Reactive Protein NT-Pro-B Natriuret Pep Total Protein Albumin Arterial Blood Glucose Urine WBC (Auto) Urine Creatinine 12/16/19 12/16/19 12/17/19 17:17 23:49 05:30 WBC 13.9 H RBC 3.27 L Hgb 9.4 L Hct 29.2 L MCHC RDW 16.0 H MCV MCH Lymph % (Auto) [place] % (Auto) 8.8 H [place] # Eos # Lymph # (Auto) [place] # (Auto) 1.2 H Eos # (Auto) 0.5 H Seg Neutrophils % 70.5 H Seg Neuts % (Manual) Baso # (Auto) 0.2 H Lymphocytes % (Manual) Monocytes % (Manual) Eosinophils % (Manual) Basophils % (Manual) Seg Neutrophils # 9.8 H Seg Neutrophils # Man Lymphocytes # (Manual) Monocytes # (Manual) Eosinophils # (Manual) Nucleated RBC % Basophils # (Manual) PT INR APTT Heparin Anti-Xa Level ABG pH POC ABG pO2 ABG pO2 ABG HCO3 ABG O2 Saturation ABG Base Excess POC ABG pCO2 ABG Hemoglobin ABG Oxyhemoglobin ABG Glucose Oxyhemoglobin Sodium Potassium Chloride Carbon Dioxide BUN Creatinine Glucose POC Glucose 162 H 144 H Lactic Acid Calcium Phosphorus Magnesium AST ALT Lactate Dehydrogenase CK-MB (CK-2) C-Reactive Protein NT-Pro-B Natriuret Pep Total Protein Albumin Arterial Blood Glucose Urine WBC (Auto) Urine Creatinine 12/17/19 12/17/19 12/17/19 05:30 06:06 11:50 WBC RBC Hgb Hct MCHC RDW MCV MCH Lymph % (Auto) [place] % (Auto) [place] # Eos # Lymph # (Auto) [place] # (Auto) Eos # (Auto) Seg Neutrophils % Seg Neuts % (Manual) Baso # (Auto) Lymphocytes % (Manual) Monocytes % (Manual) Eosinophils % (Manual) Basophils % (Manual) Seg Neutrophils # Seg Neutrophils # Man Lymphocytes # (Manual) Monocytes # (Manual) Eosinophils # (Manual) Nucleated RBC % Basophils # (Manual) PT INR APTT Heparin Anti-Xa Level ABG pH POC ABG pO2 ABG pO2 ABG HCO3 ABG O2 Saturation ABG Base Excess POC ABG pCO2 ABG Hemoglobin ABG Oxyhemoglobin ABG Glucose Oxyhemoglobin Sodium Potassium Chloride 97.4 L Carbon Dioxide 32 H BUN Creatinine 0.5 L Glucose 135 H POC Glucose 151 H 140 H Lactic Acid Calcium Phosphorus Magnesium AST ALT Lactate Dehydrogenase CK-MB (CK-2) C-Reactive Protein NT-Pro-B Natriuret Pep Total Protein Albumin Arterial Blood Glucose Urine WBC (Auto) Urine Creatinine 12/17/19 12/17/19 12/18/19 17:50 23:46 05:17 WBC RBC Hgb 8.8 L Hct 28.0 L MCHC RDW MCV MCH Lymph % (Auto) [place] % (Auto) [place] # Eos # Lymph # (Auto) [place] # (Auto) Eos # (Auto) Seg Neutrophils % Seg Neuts % (Manual) Baso # (Auto) Lymphocytes % (Manual) Monocytes % (Manual) Eosinophils % (Manual) Basophils % (Manual) Seg Neutrophils # Seg Neutrophils # Man Lymphocytes # (Manual) Monocytes # (Manual) Eosinophils # (Manual) Nucleated RBC % Basophils # (Manual) PT INR APTT Heparin Anti-Xa Level ABG pH POC ABG pO2 ABG pO2 ABG HCO3 ABG O2 Saturation ABG Base Excess POC ABG pCO2 ABG Hemoglobin ABG Oxyhemoglobin ABG Glucose Oxyhemoglobin Sodium Potassium Chloride Carbon Dioxide BUN Creatinine Glucose POC Glucose 158 H 150 H Lactic Acid Calcium Phosphorus Magnesium AST ALT Lactate Dehydrogenase CK-MB (CK-2) C-Reactive Protein NT-Pro-B Natriuret Pep Total Protein Albumin Arterial Blood Glucose Urine WBC (Auto) Urine Creatinine 12/18/19 12/18/19 12/18/19 05:17 05:49 11:12 WBC RBC Hgb Hct MCHC RDW MCV MCH Lymph % (Auto) [place] % (Auto) [place] # Eos # Lymph # (Auto) [place] # (Auto) Eos # (Auto) Seg Neutrophils % Seg Neuts % (Manual) Baso # (Auto) Lymphocytes % (Manual) Monocytes % (Manual) Eosinophils % (Manual) Basophils % (Manual) Seg Neutrophils # Seg Neutrophils # Man Lymphocytes # (Manual) Monocytes # (Manual) Eosinophils # (Manual) Nucleated RBC % Basophils # (Manual) PT INR APTT Heparin Anti-Xa Level 0.16 L ABG pH POC ABG pO2 ABG pO2 ABG HCO3 ABG O2 Saturation ABG Base Excess POC ABG pCO2 ABG Hemoglobin ABG Oxyhemoglobin ABG Glucose Oxyhemoglobin Sodium Potassium Chloride Carbon Dioxide BUN Creatinine Glucose POC Glucose 127 H 191 H Lactic Acid Calcium Phosphorus Magnesium AST ALT Lactate Dehydrogenase CK-MB (CK-2) C-Reactive Protein NT-Pro-B Natriuret Pep Total Protein Albumin Arterial Blood Glucose Urine WBC (Auto) Urine Creatinine 12/18/19 12/18/19 12/19/19 17:03 20:16 00:08 WBC RBC Hgb Hct MCHC RDW MCV MCH Lymph % (Auto) [place] % (Auto) [place] # Eos # Lymph # (Auto) [place] # (Auto) Eos # (Auto) Seg Neutrophils % Seg Neuts % (Manual) Baso # (Auto) Lymphocytes % (Manual) Monocytes % (Manual) Eosinophils % (Manual) Basophils % (Manual) Seg Neutrophils # Seg Neutrophils # Man Lymphocytes # (Manual) Monocytes # (Manual) Eosinophils # (Manual) Nucleated RBC % Basophils # (Manual) PT INR APTT Heparin Anti-Xa Level ABG pH POC ABG pO2 ABG pO2 ABG HCO3 ABG O2 Saturation ABG Base Excess POC ABG pCO2 ABG Hemoglobin ABG Oxyhemoglobin ABG Glucose Oxyhemoglobin Sodium Potassium Chloride Carbon Dioxide BUN Creatinine Glucose POC Glucose 133 H 128 H 129 H Lactic Acid Calcium Phosphorus Magnesium AST ALT Lactate Dehydrogenase CK-MB (CK-2) C-Reactive Protein NT-Pro-B Natriuret Pep Total Protein Albumin Arterial Blood Glucose Urine WBC (Auto) Urine Creatinine 12/19/19 12/19/19 12/19/19 04:45 04:45 05:35 WBC RBC Hgb Hct MCHC RDW MCV MCH Lymph % (Auto) [place] % (Auto) [place] # Eos # Lymph # (Auto) [place] # (Auto) Eos # (Auto) Seg Neutrophils % Seg Neuts % (Manual) Baso # (Auto) Lymphocytes % (Manual) Monocytes % (Manual) Eosinophils % (Manual) Basophils % (Manual) Seg Neutrophils # Seg Neutrophils # Man Lymphocytes # (Manual) Monocytes # (Manual) Eosinophils # (Manual) Nucleated RBC % Basophils # (Manual) PT INR APTT Heparin Anti-Xa Level 0.17 L ABG pH POC ABG pO2 ABG pO2 ABG HCO3 ABG O2 Saturation ABG Base Excess POC ABG pCO2 ABG Hemoglobin ABG Oxyhemoglobin ABG Glucose Oxyhemoglobin Sodium Potassium Chloride Carbon Dioxide BUN Creatinine Glucose POC Glucose 120 H Lactic Acid Calcium Phosphorus Magnesium AST ALT Lactate Dehydrogenase 228 H CK-MB (CK-2) C-Reactive Protein NT-Pro-B Natriuret Pep Total Protein Albumin Arterial Blood Glucose Urine WBC (Auto) Urine Creatinine 12/19/19 12/19/19 12/19/19 09:20 11:32 11:32 WBC 14.6 H RBC 3.08 L Hgb 9.0 L Hct 26.8 L MCHC RDW 15.9 H MCV MCH Lymph % (Auto) [place] % (Auto) [place] # Eos # Lymph # (Auto) [place] # (Auto) Eos # (Auto) Seg Neutrophils % Seg Neuts % (Manual) 82.0 H Baso # (Auto) Lymphocytes % (Manual) 10.0 L Monocytes % (Manual) Eosinophils % (Manual) Basophils % (Manual) Seg Neutrophils # Seg Neutrophils # Man 12.0 H Lymphocytes # (Manual) Monocytes # (Manual) 0.9 H Eosinophils # (Manual) Nucleated RBC % 1.0 H Basophils # (Manual) PT INR APTT Heparin Anti-Xa Level ABG pH 7.451 H POC ABG pO2 ABG pO2 62.6 L ABG HCO3 33.2 H ABG O2 Saturation 93.8 L ABG Base Excess 8.3 H POC ABG pCO2 ABG Hemoglobin 8.3 L ABG Oxyhemoglobin ABG Glucose Oxyhemoglobin 91.9 L Sodium Potassium Chloride 95.0 L Carbon Dioxide 33 H BUN 22 H Creatinine 0.6 L Glucose 150 H POC Glucose Lactic Acid Calcium Phosphorus Magnesium AST ALT Lactate Dehydrogenase CK-MB (CK-2) C-Reactive Protein NT-Pro-B Natriuret Pep Total Protein 6.2 L Albumin 2.4 L Arterial Blood Glucose Urine WBC (Auto) Urine Creatinine 12/19/19 12/19/19 12/20/19 11:56 18:17 00:09 WBC RBC Hgb Hct MCHC RDW MCV MCH Lymph % (Auto) [place] % (Auto) [place] # Eos # Lymph # (Auto) [place] # (Auto) Eos # (Auto) Seg Neutrophils % Seg Neuts % (Manual) Baso # (Auto) Lymphocytes % (Manual) Monocytes % (Manual) Eosinophils % (Manual) Basophils % (Manual) Seg Neutrophils # Seg Neutrophils # Man Lymphocytes # (Manual) Monocytes # (Manual) Eosinophils # (Manual) Nucleated RBC % Basophils # (Manual) PT INR APTT Heparin Anti-Xa Level ABG pH POC ABG pO2 ABG pO2 ABG HCO3 ABG O2 Saturation ABG Base Excess POC ABG pCO2 ABG Hemoglobin ABG Oxyhemoglobin ABG Glucose Oxyhemoglobin Sodium Potassium Chloride Carbon Dioxide BUN Creatinine Glucose POC Glucose 156 H 156 H 155 H Lactic Acid Calcium Phosphorus Magnesium AST ALT Lactate Dehydrogenase CK-MB (CK-2) C-Reactive Protein NT-Pro-B Natriuret Pep Total Protein Albumin Arterial Blood Glucose Urine WBC (Auto) Urine Creatinine 12/20/19 12/20/19 12/20/19 05:26 06:02 18:17 WBC RBC Hgb Hct MCHC RDW MCV MCH Lymph % (Auto) [place] % (Auto) [place] # Eos # Lymph # (Auto) [place] # (Auto) Eos # (Auto) Seg Neutrophils % Seg Neuts % (Manual) Baso # (Auto) Lymphocytes % (Manual) Monocytes % (Manual) Eosinophils % (Manual) Basophils % (Manual) Seg Neutrophils # Seg Neutrophils # Man Lymphocytes # (Manual) Monocytes # (Manual) Eosinophils # (Manual) Nucleated RBC % Basophils # (Manual) PT INR APTT Heparin Anti-Xa Level 0.19 L ABG pH POC ABG pO2 ABG pO2 ABG HCO3 ABG O2 Saturation ABG Base Excess POC ABG pCO2 ABG Hemoglobin ABG Oxyhemoglobin ABG Glucose Oxyhemoglobin Sodium Potassium Chloride Carbon Dioxide BUN Creatinine Glucose POC Glucose 137 H 128 H Lactic Acid Calcium Phosphorus Magnesium AST ALT Lactate Dehydrogenase CK-MB (CK-2) C-Reactive Protein NT-Pro-B Natriuret Pep Total Protein Albumin Arterial Blood Glucose Urine WBC (Auto) Urine Creatinine 12/20/19 12/21/19 12/21/19 23:34 05:31 05:31 WBC 12.7 H RBC 3.09 L Hgb 8.9 L Hct 27.4 L MCHC RDW 15.8 H MCV MCH Lymph % (Auto) 12.1 L [place] % (Auto) 7.8 H [place] # Eos # Lymph # (Auto) [place] # (Auto) 1.0 H Eos # (Auto) Seg Neutrophils % 77.1 H Seg Neuts % (Manual) Baso # (Auto) Lymphocytes % (Manual) Monocytes % (Manual) Eosinophils % (Manual) Basophils % (Manual) Seg Neutrophils # 9.8 H Seg Neutrophils # Man Lymphocytes # (Manual) Monocytes # (Manual) Eosinophils # (Manual) Nucleated RBC % Basophils # (Manual) PT INR APTT Heparin Anti-Xa Level ABG pH POC ABG pO2 ABG pO2 ABG HCO3 ABG O2 Saturation ABG Base Excess POC ABG pCO2 ABG Hemoglobin ABG Oxyhemoglobin ABG Glucose Oxyhemoglobin Sodium Potassium Chloride 96.9 L Carbon Dioxide 37 H BUN 27 H Creatinine 0.7 L Glucose 140 H POC Glucose 145 H Lactic Acid Calcium Phosphorus Magnesium AST ALT Lactate Dehydrogenase CK-MB (CK-2) C-Reactive Protein NT-Pro-B Natriuret Pep Total Protein Albumin Arterial Blood Glucose Urine WBC (Auto) Urine Creatinine 12/21/19 12/21/19 12/21/19 05:38 10:13 11:51 WBC RBC Hgb Hct MCHC RDW MCV MCH Lymph % (Auto) [place] % (Auto) [place] # Eos # Lymph # (Auto) [place] # (Auto) Eos # (Auto) Seg Neutrophils % Seg Neuts % (Manual) Baso # (Auto) Lymphocytes % (Manual) Monocytes % (Manual) Eosinophils % (Manual) Basophils % (Manual) Seg Neutrophils # Seg Neutrophils # Man Lymphocytes # (Manual) Monocytes # (Manual) Eosinophils # (Manual) Nucleated RBC % Basophils # (Manual) PT INR APTT 23.9 L Heparin Anti-Xa Level < 0.10 L ABG pH POC ABG pO2 ABG pO2 ABG HCO3 ABG O2 Saturation ABG Base Excess POC ABG pCO2 ABG Hemoglobin ABG Oxyhemoglobin ABG Glucose Oxyhemoglobin Sodium Potassium Chloride Carbon Dioxide BUN Creatinine Glucose POC Glucose 151 H 145 H Lactic Acid Calcium Phosphorus Magnesium AST ALT Lactate Dehydrogenase CK-MB (CK-2) C-Reactive Protein NT-Pro-B Natriuret Pep Total Protein Albumin Arterial Blood Glucose Urine WBC (Auto) Urine Creatinine 12/21/19 12/22/19 12/22/19 17:16 00:01 01:33 WBC RBC Hgb Hct MCHC RDW MCV MCH Lymph % (Auto) [place] % (Auto) [place] # Eos # Lymph # (Auto) [place] # (Auto) Eos # (Auto) Seg Neutrophils % Seg Neuts % (Manual) Baso # (Auto) Lymphocytes % (Manual) Monocytes % (Manual) Eosinophils % (Manual) Basophils % (Manual) Seg Neutrophils # Seg Neutrophils # Man Lymphocytes # (Manual) Monocytes # (Manual) Eosinophils # (Manual) Nucleated RBC % Basophils # (Manual) PT INR APTT Heparin Anti-Xa Level 0.10 L ABG pH POC ABG pO2 ABG pO2 ABG HCO3 ABG O2 Saturation ABG Base Excess POC ABG pCO2 ABG Hemoglobin ABG Oxyhemoglobin ABG Glucose Oxyhemoglobin Sodium Potassium Chloride Carbon Dioxide BUN Creatinine Glucose POC Glucose 167 H 179 H Lactic Acid Calcium Phosphorus Magnesium AST ALT Lactate Dehydrogenase CK-MB (CK-2) C-Reactive Protein NT-Pro-B Natriuret Pep Total Protein Albumin Arterial Blood Glucose Urine WBC (Auto) Urine Creatinine 12/22/19 12/22/19 12/22/19 03:22 05:10 05:10 WBC 13.8 H RBC 3.20 L Hgb 8.9 L Hct 28.1 L MCHC RDW 15.9 H MCV MCH Lymph % (Auto) [place] % (Auto) [place] # Eos # Lymph # (Auto) [place] # (Auto) Eos # (Auto) Seg Neutrophils % Seg Neuts % (Manual) Baso # (Auto) Lymphocytes % (Manual) Monocytes % (Manual) Eosinophils % (Manual) Basophils % (Manual) Seg Neutrophils # Seg Neutrophils # Man Lymphocytes # (Manual) Monocytes # (Manual) Eosinophils # (Manual) Nucleated RBC % Basophils # (Manual) PT INR APTT Heparin Anti-Xa Level ABG pH POC ABG pO2 52.3 L ABG pO2 ABG HCO3 ABG O2 Saturation ABG Base Excess POC ABG pCO2 52.9 H ABG Hemoglobin 10.7 L ABG Oxyhemoglobin 84 L ABG Glucose Oxyhemoglobin Sodium Potassium Chloride 96.6 L Carbon Dioxide BUN 25 H Creatinine 0.7 L Glucose 129 H POC Glucose Lactic Acid Calcium Phosphorus Magnesium AST ALT Lactate Dehydrogenase CK-MB (CK-2) C-Reactive Protein NT-Pro-B Natriuret Pep Total Protein Albumin Arterial Blood Glucose Urine WBC (Auto) Urine Creatinine 12/22/19 12/22/19 12/22/19 05:18 12:32 12:43 WBC RBC Hgb Hct MCHC RDW MCV MCH Lymph % (Auto) [place] % (Auto) [place] # Eos # Lymph # (Auto) [place] # (Auto) Eos # (Auto) Seg Neutrophils % Seg Neuts % (Manual) Baso # (Auto) Lymphocytes % (Manual) Monocytes % (Manual) Eosinophils % (Manual) Basophils % (Manual) Seg Neutrophils # Seg Neutrophils # Man Lymphocytes # (Manual) Monocytes # (Manual) Eosinophils # (Manual) Nucleated RBC % Basophils # (Manual) PT INR APTT Heparin Anti-Xa Level 0.18 L ABG pH POC ABG pO2 ABG pO2 ABG HCO3 ABG O2 Saturation ABG Base Excess POC ABG pCO2 ABG Hemoglobin ABG Oxyhemoglobin ABG Glucose Oxyhemoglobin Sodium Potassium Chloride Carbon Dioxide BUN Creatinine Glucose POC Glucose 131 H 208 H Lactic Acid Calcium Phosphorus Magnesium AST ALT Lactate Dehydrogenase CK-MB (CK-2) C-Reactive Protein NT-Pro-B Natriuret Pep Total Protein Albumin Arterial Blood Glucose Urine WBC (Auto) Urine Creatinine 12/22/19 12/22/19 12/23/19 17:44 23:20 03:51 WBC 15.2 H RBC 3.43 L Hgb 9.6 L Hct 30.3 L MCHC RDW 15.9 H MCV MCH Lymph % (Auto) [place] % (Auto) [place] # Eos # Lymph # (Auto) [place] # (Auto) Eos # (Auto) Seg Neutrophils % Seg Neuts % (Manual) Baso # (Auto) Lymphocytes % (Manual) Monocytes % (Manual) Eosinophils % (Manual) Basophils % (Manual) Seg Neutrophils # Seg Neutrophils # Man Lymphocytes # (Manual) Monocytes # (Manual) Eosinophils # (Manual) Nucleated RBC % Basophils # (Manual) PT INR APTT Heparin Anti-Xa Level ABG pH POC ABG pO2 ABG pO2 ABG HCO3 ABG O2 Saturation ABG Base Excess POC ABG pCO2 ABG Hemoglobin ABG Oxyhemoglobin ABG Glucose Oxyhemoglobin Sodium Potassium Chloride Carbon Dioxide BUN Creatinine Glucose POC Glucose 209 H 119 H Lactic Acid Calcium Phosphorus Magnesium AST ALT Lactate Dehydrogenase CK-MB (CK-2) C-Reactive Protein NT-Pro-B Natriuret Pep Total Protein Albumin Arterial Blood Glucose Urine WBC (Auto) Urine Creatinine 12/23/19 12/23/19 12/23/19 03:51 05:31 12:09 WBC RBC Hgb Hct MCHC RDW MCV MCH Lymph % (Auto) [place] % (Auto) [place] # Eos # Lymph # (Auto) [place] # (Auto) Eos # (Auto) Seg Neutrophils % Seg Neuts % (Manual) Baso # (Auto) Lymphocytes % (Manual) Monocytes % (Manual) Eosinophils % (Manual) Basophils % (Manual) Seg Neutrophils # Seg Neutrophils # Man Lymphocytes # (Manual) Monocytes # (Manual) Eosinophils # (Manual) Nucleated RBC % Basophils # (Manual) PT INR APTT Heparin Anti-Xa Level ABG pH POC ABG pO2 ABG pO2 ABG HCO3 ABG O2 Saturation ABG Base Excess POC ABG pCO2 ABG Hemoglobin ABG Oxyhemoglobin ABG Glucose Oxyhemoglobin Sodium Potassium Chloride 97.2 L Carbon Dioxide 31 H BUN 23 H Creatinine 0.6 L Glucose 153 H POC Glucose 149 H 144 H Lactic Acid Calcium Phosphorus Magnesium AST ALT Lactate Dehydrogenase CK-MB (CK-2) C-Reactive Protein NT-Pro-B Natriuret Pep Total Protein Albumin Arterial Blood Glucose Urine WBC (Auto) Urine Creatinine 12/23/19 12/23/19 12/23/19 15:30 17:49 23:31 WBC RBC Hgb Hct MCHC RDW MCV MCH Lymph % (Auto) [place] % (Auto) [place] # Eos # Lymph # (Auto) [place] # (Auto) Eos # (Auto) Seg Neutrophils % Seg Neuts % (Manual) Baso # (Auto) Lymphocytes % (Manual) Monocytes % (Manual) Eosinophils % (Manual) Basophils % (Manual) Seg Neutrophils # Seg Neutrophils # Man Lymphocytes # (Manual) Monocytes # (Manual) Eosinophils # (Manual) Nucleated RBC % Basophils # (Manual) PT INR APTT Heparin Anti-Xa Level 0.21 L ABG pH POC ABG pO2 ABG pO2 ABG HCO3 ABG O2 Saturation ABG Base Excess POC ABG pCO2 ABG Hemoglobin ABG Oxyhemoglobin ABG Glucose Oxyhemoglobin Sodium Potassium Chloride Carbon Dioxide BUN Creatinine Glucose POC Glucose 192 H 151 H Lactic Acid Calcium Phosphorus Magnesium AST ALT Lactate Dehydrogenase CK-MB (CK-2) C-Reactive Protein NT-Pro-B Natriuret Pep Total Protein Albumin Arterial Blood Glucose Urine WBC (Auto) Urine Creatinine 12/24/19 12/24/19 12/24/19 05:34 12:13 16:50 WBC RBC Hgb Hct MCHC RDW MCV MCH Lymph % (Auto) [place] % (Auto) [place] # Eos # Lymph # (Auto) [place] # (Auto) Eos # (Auto) Seg Neutrophils % Seg Neuts % (Manual) Baso # (Auto) Lymphocytes % (Manual) Monocytes % (Manual) Eosinophils % (Manual) Basophils % (Manual) Seg Neutrophils # Seg Neutrophils # Man Lymphocytes # (Manual) Monocytes # (Manual) Eosinophils # (Manual) Nucleated RBC % Basophils # (Manual) PT INR APTT Heparin Anti-Xa Level 0.16 L ABG pH POC ABG pO2 ABG pO2 ABG HCO3 ABG O2 Saturation ABG Base Excess POC ABG pCO2 ABG Hemoglobin ABG Oxyhemoglobin ABG Glucose Oxyhemoglobin Sodium Potassium Chloride Carbon Dioxide BUN Creatinine Glucose POC Glucose 145 H 124 H Lactic Acid Calcium Phosphorus Magnesium AST ALT Lactate Dehydrogenase CK-MB (CK-2) C-Reactive Protein NT-Pro-B Natriuret Pep Total Protein Albumin Arterial Blood Glucose Urine WBC (Auto) Urine Creatinine 12/24/19 12/25/19 12/25/19 17:53 00:14 04:18 WBC 12.9 H RBC 3.30 L Hgb 9.1 L Hct 28.8 L MCHC RDW 16.4 H MCV MCH Lymph % (Auto) [place] % (Auto) 7.8 H [place] # Eos # Lymph # (Auto) [place] # (Auto) 1.0 H Eos # (Auto) Seg Neutrophils % 75.5 H Seg Neuts % (Manual) Baso # (Auto) Lymphocytes % (Manual) Monocytes % (Manual) Eosinophils % (Manual) Basophils % (Manual) Seg Neutrophils # 9.7 H Seg Neutrophils # Man Lymphocytes # (Manual) Monocytes # (Manual) Eosinophils # (Manual) Nucleated RBC % Basophils # (Manual) PT INR APTT Heparin Anti-Xa Level ABG pH POC ABG pO2 ABG pO2 ABG HCO3 ABG O2 Saturation ABG Base Excess POC ABG pCO2 ABG Hemoglobin ABG Oxyhemoglobin ABG Glucose Oxyhemoglobin Sodium Potassium Chloride Carbon Dioxide BUN Creatinine Glucose POC Glucose 164 H 148 H Lactic Acid Calcium Phosphorus Magnesium AST ALT Lactate Dehydrogenase CK-MB (CK-2) C-Reactive Protein NT-Pro-B Natriuret Pep Total Protein Albumin Arterial Blood Glucose Urine WBC (Auto) Urine Creatinine 12/25/19 12/25/19 12/25/19 04:18 05:38 11:44 WBC RBC Hgb Hct MCHC RDW MCV MCH Lymph % (Auto) [place] % (Auto) [place] # Eos # Lymph # (Auto) [place] # (Auto) Eos # (Auto) Seg Neutrophils % Seg Neuts % (Manual) Baso # (Auto) Lymphocytes % (Manual) Monocytes % (Manual) Eosinophils % (Manual) Basophils % (Manual) Seg Neutrophils # Seg Neutrophils # Man Lymphocytes # (Manual) Monocytes # (Manual) Eosinophils # (Manual) Nucleated RBC % Basophils # (Manual) PT INR APTT Heparin Anti-Xa Level ABG pH POC ABG pO2 ABG pO2 ABG HCO3 ABG O2 Saturation ABG Base Excess POC ABG pCO2 ABG Hemoglobin ABG Oxyhemoglobin ABG Glucose Oxyhemoglobin Sodium Potassium Chloride Carbon Dioxide 33 H BUN 27 H Creatinine 0.6 L Glucose 132 H POC Glucose 152 H 166 H Lactic Acid Calcium Phosphorus Magnesium AST ALT Lactate Dehydrogenase CK-MB (CK-2) C-Reactive Protein NT-Pro-B Natriuret Pep Total Protein Albumin Arterial Blood Glucose Urine WBC (Auto) Urine Creatinine 12/25/19 12/26/19 12/26/19 18:29 00:17 00:18 WBC RBC Hgb Hct MCHC RDW MCV MCH Lymph % (Auto) [place] % (Auto) [place] # Eos # Lymph # (Auto) [place] # (Auto) Eos # (Auto) Seg Neutrophils % Seg Neuts % (Manual) Baso # (Auto) Lymphocytes % (Manual) Monocytes % (Manual) Eosinophils % (Manual) Basophils % (Manual) Seg Neutrophils # Seg Neutrophils # Man Lymphocytes # (Manual) Monocytes # (Manual) Eosinophils # (Manual) Nucleated RBC % Basophils # (Manual) PT INR APTT Heparin Anti-Xa Level ABG pH POC ABG pO2 ABG pO2 ABG HCO3 ABG O2 Saturation ABG Base Excess POC ABG pCO2 ABG Hemoglobin ABG Oxyhemoglobin ABG Glucose Oxyhemoglobin Sodium Potassium Chloride 97.8 L Carbon Dioxide BUN 25 H Creatinine 0.6 L Glucose 140 H POC Glucose 194 H 151 H Lactic Acid Calcium Phosphorus Magnesium AST ALT Lactate Dehydrogenase CK-MB (CK-2) C-Reactive Protein NT-Pro-B Natriuret Pep Total Protein Albumin Arterial Blood Glucose Urine WBC (Auto) Urine Creatinine 12/26/19 12/26/19 12/26/19 05:36 11:41 17:50 WBC RBC Hgb Hct MCHC RDW MCV MCH Lymph % (Auto) [place] % (Auto) [place] # Eos # Lymph # (Auto) [place] # (Auto) Eos # (Auto) Seg Neutrophils % Seg Neuts % (Manual) Baso # (Auto) Lymphocytes % (Manual) Monocytes % (Manual) Eosinophils % (Manual) Basophils % (Manual) Seg Neutrophils # Seg Neutrophils # Man Lymphocytes # (Manual) Monocytes # (Manual) Eosinophils # (Manual) Nucleated RBC % Basophils # (Manual) PT INR APTT Heparin Anti-Xa Level ABG pH POC ABG pO2 ABG pO2 ABG HCO3 ABG O2 Saturation ABG Base Excess POC ABG pCO2 ABG Hemoglobin ABG Oxyhemoglobin ABG Glucose Oxyhemoglobin Sodium Potassium Chloride Carbon Dioxide BUN Creatinine Glucose POC Glucose 156 H 148 H 139 H Lactic Acid Calcium Phosphorus Magnesium AST ALT Lactate Dehydrogenase CK-MB (CK-2) C-Reactive Protein NT-Pro-B Natriuret Pep Total Protein Albumin Arterial Blood Glucose Urine WBC (Auto) Urine Creatinine 12/26/19 12/27/19 12/27/19 23:19 05:34 12:02 WBC RBC Hgb Hct MCHC RDW MCV MCH Lymph % (Auto) [place] % (Auto) [place] # Eos # Lymph # (Auto) [place] # (Auto) Eos # (Auto) Seg Neutrophils % Seg Neuts % (Manual) Baso # (Auto) Lymphocytes % (Manual) Monocytes % (Manual) Eosinophils % (Manual) Basophils % (Manual) Seg Neutrophils # Seg Neutrophils # Man Lymphocytes # (Manual) Monocytes # (Manual) Eosinophils # (Manual) Nucleated RBC % Basophils # (Manual) PT INR APTT Heparin Anti-Xa Level ABG pH POC ABG pO2 ABG pO2 ABG HCO3 ABG O2 Saturation ABG Base Excess POC ABG pCO2 ABG Hemoglobin ABG Oxyhemoglobin ABG Glucose Oxyhemoglobin Sodium Potassium Chloride Carbon Dioxide BUN Creatinine Glucose POC Glucose 161 H 145 H 157 H Lactic Acid Calcium Phosphorus Magnesium AST ALT Lactate Dehydrogenase CK-MB (CK-2) C-Reactive Protein NT-Pro-B Natriuret Pep Total Protein Albumin Arterial Blood Glucose Urine WBC (Auto) Urine Creatinine 12/27/19 12/27/19 12/27/19 17:35 20:11 23:00 WBC RBC Hgb Hct MCHC RDW MCV MCH Lymph % (Auto) [place] % (Auto) [place] # Eos # Lymph # (Auto) [place] # (Auto) Eos # (Auto) Seg Neutrophils % Seg Neuts % (Manual) Baso # (Auto) Lymphocytes % (Manual) Monocytes % (Manual) Eosinophils % (Manual) Basophils % (Manual) Seg Neutrophils # Seg Neutrophils # Man Lymphocytes # (Manual) Monocytes # (Manual) Eosinophils # (Manual) Nucleated RBC % Basophils # (Manual) PT INR APTT Heparin Anti-Xa Level 0.19 L ABG pH POC ABG pO2 ABG pO2 ABG HCO3 ABG O2 Saturation ABG Base Excess POC ABG pCO2 ABG Hemoglobin ABG Oxyhemoglobin ABG Glucose Oxyhemoglobin Sodium Potassium Chloride Carbon Dioxide BUN Creatinine Glucose POC Glucose 158 H 155 H Lactic Acid Calcium Phosphorus Magnesium AST ALT Lactate Dehydrogenase CK-MB (CK-2) C-Reactive Protein NT-Pro-B Natriuret Pep Total Protein Albumin Arterial Blood Glucose Urine WBC (Auto) Urine Creatinine 12/27/19 12/28/19 12/28/19 23:45 02:41 02:41 WBC 13.0 H RBC 3.48 L Hgb 9.5 L Hct 30.6 L MCHC 31 L RDW 16.6 H MCV MCH 27 L Lymph % (Auto) 13.0 L [place] % (Auto) 8.0 H [place] # Eos # Lymph # (Auto) [place] # (Auto) 1.0 H Eos # (Auto) Seg Neutrophils % 76.3 H Seg Neuts % (Manual) Baso # (Auto) Lymphocytes % (Manual) Monocytes % (Manual) Eosinophils % (Manual) Basophils % (Manual) Seg Neutrophils # 9.9 H Seg Neutrophils # Man Lymphocytes # (Manual) Monocytes # (Manual) Eosinophils # (Manual) Nucleated RBC % Basophils # (Manual) PT INR APTT Heparin Anti-Xa Level ABG pH POC ABG pO2 ABG pO2 ABG HCO3 ABG O2 Saturation ABG Base Excess POC ABG pCO2 ABG Hemoglobin ABG Oxyhemoglobin ABG Glucose Oxyhemoglobin Sodium Potassium Chloride Carbon Dioxide BUN 22 H Creatinine 0.6 L Glucose 101 H POC Glucose 130 H Lactic Acid Calcium Phosphorus Magnesium AST ALT Lactate Dehydrogenase CK-MB (CK-2) C-Reactive Protein NT-Pro-B Natriuret Pep Total Protein Albumin Arterial Blood Glucose Urine WBC (Auto) Urine Creatinine 12/28/19 12/28/19 12/28/19 06:00 12:34 18:13 WBC RBC Hgb Hct MCHC RDW MCV MCH Lymph % (Auto) [place] % (Auto) [place] # Eos # Lymph # (Auto) [place] # (Auto) Eos # (Auto) Seg Neutrophils % Seg Neuts % (Manual) Baso # (Auto) Lymphocytes % (Manual) Monocytes % (Manual) Eosinophils % (Manual) Basophils % (Manual) Seg Neutrophils # Seg Neutrophils # Man Lymphocytes # (Manual) Monocytes # (Manual) Eosinophils # (Manual) Nucleated RBC % Basophils # (Manual) PT INR APTT Heparin Anti-Xa Level ABG pH POC ABG pO2 ABG pO2 ABG HCO3 ABG O2 Saturation ABG Base Excess POC ABG pCO2 ABG Hemoglobin ABG Oxyhemoglobin ABG Glucose Oxyhemoglobin Sodium Potassium Chloride Carbon Dioxide BUN Creatinine Glucose POC Glucose 150 H 161 H 128 H Lactic Acid Calcium Phosphorus Magnesium AST ALT Lactate Dehydrogenase CK-MB (CK-2) C-Reactive Protein NT-Pro-B Natriuret Pep Total Protein Albumin Arterial Blood Glucose Urine WBC (Auto) Urine Creatinine 12/28/19 12/29/19 12/29/19 23:36 05:21 11:40 WBC RBC Hgb Hct MCHC RDW MCV MCH Lymph % (Auto) [place] % (Auto) [place] # Eos # Lymph # (Auto) [place] # (Auto) Eos # (Auto) Seg Neutrophils % Seg Neuts % (Manual) Baso # (Auto) Lymphocytes % (Manual) Monocytes % (Manual) Eosinophils % (Manual) Basophils % (Manual) Seg Neutrophils # Seg Neutrophils # Man Lymphocytes # (Manual) Monocytes # (Manual) Eosinophils # (Manual) Nucleated RBC % Basophils # (Manual) PT INR APTT Heparin Anti-Xa Level ABG pH POC ABG pO2 ABG pO2 ABG HCO3 ABG O2 Saturation ABG Base Excess POC ABG pCO2 ABG Hemoglobin ABG Oxyhemoglobin ABG Glucose Oxyhemoglobin Sodium Potassium Chloride Carbon Dioxide BUN Creatinine Glucose POC Glucose 137 H 136 H 166 H Lactic Acid Calcium Phosphorus Magnesium AST ALT Lactate Dehydrogenase CK-MB (CK-2) C-Reactive Protein NT-Pro-B Natriuret Pep Total Protein Albumin Arterial Blood Glucose Urine WBC (Auto) Urine Creatinine 12/29/19 12/29/19 12/29/19 17:23 19:21 23:38 WBC RBC Hgb Hct MCHC RDW MCV MCH Lymph % (Auto) [place] % (Auto) [place] # Eos # Lymph # (Auto) [place] # (Auto) Eos # (Auto) Seg Neutrophils % Seg Neuts % (Manual) Baso # (Auto) Lymphocytes % (Manual) Monocytes % (Manual) Eosinophils % (Manual) Basophils % (Manual) Seg Neutrophils # Seg Neutrophils # Man Lymphocytes # (Manual) Monocytes # (Manual) Eosinophils # (Manual) Nucleated RBC % Basophils # (Manual) PT INR APTT Heparin Anti-Xa Level 0.20 L ABG pH POC ABG pO2 ABG pO2 ABG HCO3 ABG O2 Saturation ABG Base Excess POC ABG pCO2 ABG Hemoglobin ABG Oxyhemoglobin ABG Glucose Oxyhemoglobin Sodium Potassium Chloride Carbon Dioxide BUN Creatinine Glucose POC Glucose 144 H 141 H Lactic Acid Calcium Phosphorus Magnesium AST ALT Lactate Dehydrogenase CK-MB (CK-2) C-Reactive Protein NT-Pro-B Natriuret Pep Total Protein Albumin Arterial Blood Glucose Urine WBC (Auto) Urine Creatinine 12/30/19 12/30/19 12/30/19 03:58 03:58 04:59 WBC RBC 3.54 L Hgb 9.8 L Hct 30.7 L MCHC RDW 16.8 H MCV MCH Lymph % (Auto) [place] % (Auto) [place] # Eos # Lymph # (Auto) [place] # (Auto) Eos # (Auto) Seg Neutrophils % Seg Neuts % (Manual) Baso # (Auto) Lymphocytes % (Manual) Monocytes % (Manual) Eosinophils % (Manual) Basophils % (Manual) Seg Neutrophils # Seg Neutrophils # Man Lymphocytes # (Manual) Monocytes # (Manual) Eosinophils # (Manual) Nucleated RBC % Basophils # (Manual) PT INR APTT Heparin Anti-Xa Level ABG pH POC ABG pO2 ABG pO2 ABG HCO3 29.8 H ABG O2 Saturation ABG Base Excess 4.8 H POC ABG pCO2 ABG Hemoglobin 11.2 L ABG Oxyhemoglobin ABG Glucose Oxyhemoglobin 93.8 L Sodium Potassium Chloride 97.8 L Carbon Dioxide BUN 26 H Creatinine Glucose 168 H POC Glucose Lactic Acid Calcium Phosphorus Magnesium AST ALT Lactate Dehydrogenase CK-MB (CK-2) C-Reactive Protein NT-Pro-B Natriuret Pep Total Protein Albumin Arterial Blood Glucose Urine WBC (Auto) Urine Creatinine 12/30/19 12/30/19 12/30/19 05:45 11:34 17:28 WBC RBC Hgb Hct MCHC RDW MCV MCH Lymph % (Auto) [place] % (Auto) [place] # Eos # Lymph # (Auto) [place] # (Auto) Eos # (Auto) Seg Neutrophils % Seg Neuts % (Manual) Baso # (Auto) Lymphocytes % (Manual) Monocytes % (Manual) Eosinophils % (Manual) Basophils % (Manual) Seg Neutrophils # Seg Neutrophils # Man Lymphocytes # (Manual) Monocytes # (Manual) Eosinophils # (Manual) Nucleated RBC % Basophils # (Manual) PT INR APTT Heparin Anti-Xa Level ABG pH POC ABG pO2 ABG pO2 ABG HCO3 ABG O2 Saturation ABG Base Excess POC ABG pCO2 ABG Hemoglobin ABG Oxyhemoglobin ABG Glucose Oxyhemoglobin Sodium Potassium Chloride Carbon Dioxide BUN Creatinine Glucose POC Glucose 163 H 180 H 150 H Lactic Acid Calcium Phosphorus Magnesium AST ALT Lactate Dehydrogenase CK-MB (CK-2) C-Reactive Protein NT-Pro-B Natriuret Pep Total Protein Albumin Arterial Blood Glucose Urine WBC (Auto) Urine Creatinine 12/30/19 12/31/19 12/31/19 23:43 04:55 05:07 WBC RBC Hgb Hct MCHC RDW MCV MCH Lymph % (Auto) [place] % (Auto) [place] # Eos # Lymph # (Auto) [place] # (Auto) Eos # (Auto) Seg Neutrophils % Seg Neuts % (Manual) Baso # (Auto) Lymphocytes % (Manual) Monocytes % (Manual) Eosinophils % (Manual) Basophils % (Manual) Seg Neutrophils # Seg Neutrophils # Man Lymphocytes # (Manual) Monocytes # (Manual) Eosinophils # (Manual) Nucleated RBC % Basophils # (Manual) PT INR APTT Heparin Anti-Xa Level ABG pH POC ABG pO2 ABG pO2 ABG HCO3 ABG O2 Saturation ABG Base Excess POC ABG pCO2 ABG Hemoglobin ABG Oxyhemoglobin ABG Glucose Oxyhemoglobin Sodium Potassium 5.6 H D Chloride Carbon Dioxide BUN 33 H Creatinine Glucose 131 H POC Glucose 142 H 134 H Lactic Acid Calcium Phosphorus Magnesium AST ALT Lactate Dehydrogenase CK-MB (CK-2) C-Reactive Protein NT-Pro-B Natriuret Pep Total Protein Albumin Arterial Blood Glucose Urine WBC (Auto) Urine Creatinine 12/31/19 12/31/19 12/31/19 11:30 17:19 17:36 WBC RBC Hgb Hct MCHC RDW MCV MCH Lymph % (Auto) [place] % (Auto) [place] # Eos # Lymph # (Auto) [place] # (Auto) Eos # (Auto) Seg Neutrophils % Seg Neuts % (Manual) Baso # (Auto) Lymphocytes % (Manual) Monocytes % (Manual) Eosinophils % (Manual) Basophils % (Manual) Seg Neutrophils # Seg Neutrophils # Man Lymphocytes # (Manual) Monocytes # (Manual) Eosinophils # (Manual) Nucleated RBC % Basophils # (Manual) PT INR APTT Heparin Anti-Xa Level ABG pH POC ABG pO2 ABG pO2 ABG HCO3 ABG O2 Saturation ABG Base Excess POC ABG pCO2 ABG Hemoglobin ABG Oxyhemoglobin ABG Glucose Oxyhemoglobin Sodium Potassium Chloride Carbon Dioxide BUN 35 H Creatinine Glucose 156 H POC Glucose 158 H 181 H Lactic Acid Calcium Phosphorus Magnesium AST ALT Lactate Dehydrogenase CK-MB (CK-2) C-Reactive Protein NT-Pro-B Natriuret Pep Total Protein Albumin Arterial Blood Glucose Urine WBC (Auto) Urine Creatinine 12/31/19 12/31/19 12/31/19 18:16 19:41 21:53 WBC RBC Hgb Hct MCHC RDW MCV MCH Lymph % (Auto) [place] % (Auto) [place] # Eos # Lymph # (Auto) [place] # (Auto) Eos # (Auto) Seg Neutrophils % Seg Neuts % (Manual) Baso # (Auto) Lymphocytes % (Manual) Monocytes % (Manual) Eosinophils % (Manual) Basophils % (Manual) Seg Neutrophils # Seg Neutrophils # Man Lymphocytes # (Manual) Monocytes # (Manual) Eosinophils # (Manual) Nucleated RBC % Basophils # (Manual) PT INR APTT Heparin Anti-Xa Level 0.20 L ABG pH POC ABG pO2 ABG pO2 ABG HCO3 ABG O2 Saturation ABG Base Excess POC ABG pCO2 ABG Hemoglobin ABG Oxyhemoglobin ABG Glucose Oxyhemoglobin Sodium Potassium Chloride Carbon Dioxide BUN 34 H Creatinine Glucose 169 H POC Glucose 141 H Lactic Acid Calcium Phosphorus Magnesium AST ALT Lactate Dehydrogenase CK-MB (CK-2) C-Reactive Protein NT-Pro-B Natriuret Pep Total Protein Albumin Arterial Blood Glucose Urine WBC (Auto) Urine Creatinine 12/31/19 01/01/20 01/01/20 23:51 05:17 10:40 WBC RBC Hgb Hct MCHC RDW MCV MCH Lymph % (Auto) [place] % (Auto) [place] # Eos # Lymph # (Auto) [place] # (Auto) Eos # (Auto) Seg Neutrophils % Seg Neuts % (Manual) Baso # (Auto) Lymphocytes % (Manual) Monocytes % (Manual) Eosinophils % (Manual) Basophils % (Manual) Seg Neutrophils # Seg Neutrophils # Man Lymphocytes # (Manual) Monocytes # (Manual) Eosinophils # (Manual) Nucleated RBC % Basophils # (Manual) PT INR APTT Heparin Anti-Xa Level ABG pH POC ABG pO2 ABG pO2 ABG HCO3 ABG O2 Saturation ABG Base Excess POC ABG pCO2 ABG Hemoglobin ABG Oxyhemoglobin ABG Glucose Oxyhemoglobin Sodium Potassium Chloride Carbon Dioxide BUN 31 H Creatinine 0.7 L Glucose 137 H POC Glucose 131 H 155 H Lactic Acid Calcium Phosphorus Magnesium AST 73 H ALT 97 H Lactate Dehydrogenase CK-MB (CK-2) C-Reactive Protein NT-Pro-B Natriuret Pep 3866 H Total Protein Albumin 2.8 L Arterial Blood Glucose Urine WBC (Auto) Urine Creatinine 01/01/20 01/01/20 01/01/20 12:26 15:33 17:53 WBC 14.3 H RBC 3.35 L Hgb 9.1 L Hct 28.8 L MCHC RDW 17.0 H MCV MCH 27 L Lymph % (Auto) 7.0 L [place] % (Auto) 7.6 H [place] # Eos # Lymph # (Auto) 1.0 L [place] # (Auto) 1.1 H Eos # (Auto) Seg Neutrophils % 83.3 H Seg Neuts % (Manual) Baso # (Auto) Lymphocytes % (Manual) Monocytes % (Manual) Eosinophils % (Manual) Basophils % (Manual) Seg Neutrophils # 12.0 H Seg Neutrophils # Man Lymphocytes # (Manual) Monocytes # (Manual) Eosinophils # (Manual) Nucleated RBC % Basophils # (Manual) PT INR APTT Heparin Anti-Xa Level ABG pH POC ABG pO2 ABG pO2 ABG HCO3 ABG O2 Saturation ABG Base Excess POC ABG pCO2 ABG Hemoglobin ABG Oxyhemoglobin ABG Glucose Oxyhemoglobin Sodium Potassium Chloride Carbon Dioxide BUN Creatinine Glucose POC Glucose 128 H 128 H Lactic Acid Calcium Phosphorus Magnesium AST ALT Lactate Dehydrogenase CK-MB (CK-2) C-Reactive Protein NT-Pro-B Natriuret Pep Total Protein Albumin Arterial Blood Glucose Urine WBC (Auto) Urine Creatinine 01/01/20 01/02/20 01/02/20 23:04 05:39 07:00 WBC RBC Hgb Hct MCHC RDW MCV MCH Lymph % (Auto) [place] % (Auto) [place] # Eos # Lymph # (Auto) [place] # (Auto) Eos # (Auto) Seg Neutrophils % Seg Neuts % (Manual) Baso # (Auto) Lymphocytes % (Manual) Monocytes % (Manual) Eosinophils % (Manual) Basophils % (Manual) Seg Neutrophils # Seg Neutrophils # Man Lymphocytes # (Manual) Monocytes # (Manual) Eosinophils # (Manual) Nucleated RBC % Basophils # (Manual) PT INR APTT Heparin Anti-Xa Level 0.13 L ABG pH POC ABG pO2 ABG pO2 ABG HCO3 ABG O2 Saturation ABG Base Excess POC ABG pCO2 ABG Hemoglobin ABG Oxyhemoglobin ABG Glucose Oxyhemoglobin Sodium Potassium Chloride Carbon Dioxide BUN Creatinine Glucose POC Glucose 120 H 169 H Lactic Acid Calcium Phosphorus Magnesium AST ALT Lactate Dehydrogenase CK-MB (CK-2) C-Reactive Protein NT-Pro-B Natriuret Pep Total Protein Albumin Arterial Blood Glucose Urine WBC (Auto) Urine Creatinine 01/02/20 01/02/20 01/02/20 12:15 14:06 17:58 WBC RBC Hgb Hct MCHC RDW MCV MCH Lymph % (Auto) [place] % (Auto) [place] # Eos # Lymph # (Auto) [place] # (Auto) Eos # (Auto) Seg Neutrophils % Seg Neuts % (Manual) Baso # (Auto) Lymphocytes % (Manual) Monocytes % (Manual) Eosinophils % (Manual) Basophils % (Manual) Seg Neutrophils # Seg Neutrophils # Man Lymphocytes # (Manual) Monocytes # (Manual) Eosinophils # (Manual) Nucleated RBC % Basophils # (Manual) PT INR APTT Heparin Anti-Xa Level < 0.10 L ABG pH POC ABG pO2 ABG pO2 ABG HCO3 ABG O2 Saturation ABG Base Excess POC ABG pCO2 ABG Hemoglobin ABG Oxyhemoglobin ABG Glucose Oxyhemoglobin Sodium Potassium Chloride Carbon Dioxide BUN Creatinine Glucose POC Glucose 190 H 198 H Lactic Acid Calcium Phosphorus Magnesium AST ALT Lactate Dehydrogenase CK-MB (CK-2) C-Reactive Protein NT-Pro-B Natriuret Pep Total Protein Albumin Arterial Blood Glucose Urine WBC (Auto) Urine Creatinine 01/02/20 01/02/20 01/03/20 21:43 23:33 05:42 WBC RBC Hgb Hct MCHC RDW MCV MCH Lymph % (Auto) [place] % (Auto) [place] # Eos # Lymph # (Auto) [place] # (Auto) Eos # (Auto) Seg Neutrophils % Seg Neuts % (Manual) Baso # (Auto) Lymphocytes % (Manual) Monocytes % (Manual) Eosinophils % (Manual) Basophils % (Manual) Seg Neutrophils # Seg Neutrophils # Man Lymphocytes # (Manual) Monocytes # (Manual) Eosinophils # (Manual) Nucleated RBC % Basophils # (Manual) PT INR APTT Heparin Anti-Xa Level 0.10 L ABG pH POC ABG pO2 ABG pO2 ABG HCO3 ABG O2 Saturation ABG Base Excess POC ABG pCO2 ABG Hemoglobin ABG Oxyhemoglobin ABG Glucose Oxyhemoglobin Sodium Potassium Chloride Carbon Dioxide BUN Creatinine Glucose POC Glucose 180 H 163 H Lactic Acid Calcium Phosphorus Magnesium AST ALT Lactate Dehydrogenase CK-MB (CK-2) C-Reactive Protein NT-Pro-B Natriuret Pep Total Protein Albumin Arterial Blood Glucose Urine WBC (Auto) Urine Creatinine 01/03/20 01/03/20 01/03/20 06:50 07:25 07:45 WBC 12.1 H RBC 3.35 L Hgb 9.0 L Hct 28.9 L MCHC 31 L RDW 16.6 H MCV MCH 27 L Lymph % (Auto) 13.0 L [place] % (Auto) 8.6 H [place] # Eos # Lymph # (Auto) [place] # (Auto) 1.0 H Eos # (Auto) Seg Neutrophils % 75.9 H Seg Neuts % (Manual) Baso # (Auto) Lymphocytes % (Manual) Monocytes % (Manual) Eosinophils % (Manual) Basophils % (Manual) Seg Neutrophils # 9.2 H Seg Neutrophils # Man Lymphocytes # (Manual) Monocytes # (Manual) Eosinophils # (Manual) Nucleated RBC % Basophils # (Manual) PT INR APTT Heparin Anti-Xa Level 0.29 L ABG pH POC ABG pO2 ABG pO2 ABG HCO3 ABG O2 Saturation ABG Base Excess POC ABG pCO2 ABG Hemoglobin ABG Oxyhemoglobin ABG Glucose Oxyhemoglobin Sodium Potassium 3.3 L D Chloride Carbon Dioxide 35 H D BUN 23 H Creatinine 0.6 L Glucose 149 H POC Glucose Lactic Acid Calcium Phosphorus Magnesium AST ALT 88 H Lactate Dehydrogenase CK-MB (CK-2) C-Reactive Protein NT-Pro-B Natriuret Pep Total Protein 6.2 L Albumin 2.9 L Arterial Blood Glucose Urine WBC (Auto) Urine Creatinine 01/03/20 01/03/20 01/03/20 12:05 17:42 18:30 WBC RBC Hgb Hct MCHC RDW MCV MCH Lymph % (Auto) [place] % (Auto) [place] # Eos # Lymph # (Auto) [place] # (Auto) Eos # (Auto) Seg Neutrophils % Seg Neuts % (Manual) Baso # (Auto) Lymphocytes % (Manual) Monocytes % (Manual) Eosinophils % (Manual) Basophils % (Manual) Seg Neutrophils # Seg Neutrophils # Man Lymphocytes # (Manual) Monocytes # (Manual) Eosinophils # (Manual) Nucleated RBC % Basophils # (Manual) PT INR APTT Heparin Anti-Xa Level ABG pH POC ABG pO2 ABG pO2 70.7 L ABG HCO3 36.1 H ABG O2 Saturation 94.4 L ABG Base Excess 10.0 H POC ABG pCO2 ABG Hemoglobin 9.7 L ABG Oxyhemoglobin ABG Glucose Oxyhemoglobin 91.8 L Sodium Potassium Chloride Carbon Dioxide BUN Creatinine Glucose POC Glucose 128 H 132 H Lactic Acid Calcium Phosphorus Magnesium AST ALT Lactate Dehydrogenase CK-MB (CK-2) C-Reactive Protein NT-Pro-B Natriuret Pep Total Protein Albumin Arterial Blood Glucose Urine WBC (Auto) Urine Creatinine 01/04/20 01/04/20 01/04/20 00:10 04:26 05:23 WBC RBC Hgb Hct MCHC RDW MCV MCH Lymph % (Auto) [place] % (Auto) [place] # Eos # Lymph # (Auto) [place] # (Auto) Eos # (Auto) Seg Neutrophils % Seg Neuts % (Manual) Baso # (Auto) Lymphocytes % (Manual) Monocytes % (Manual) Eosinophils % (Manual) Basophils % (Manual) Seg Neutrophils # Seg Neutrophils # Man Lymphocytes # (Manual) Monocytes # (Manual) Eosinophils # (Manual) Nucleated RBC % Basophils # (Manual) PT INR APTT Heparin Anti-Xa Level 0.16 L ABG pH POC ABG pO2 ABG pO2 ABG HCO3 ABG O2 Saturation ABG Base Excess POC ABG pCO2 ABG Hemoglobin ABG Oxyhemoglobin ABG Glucose Oxyhemoglobin Sodium Potassium Chloride Carbon Dioxide BUN Creatinine Glucose POC Glucose 121 H 119 H Lactic Acid Calcium Phosphorus Magnesium AST ALT Lactate Dehydrogenase CK-MB (CK-2) C-Reactive Protein NT-Pro-B Natriuret Pep Total Protein Albumin Arterial Blood Glucose Urine WBC (Auto) Urine Creatinine 01/04/20 01/04/20 01/04/20 09:50 09:50 12:18 WBC 15.4 H RBC 3.30 L Hgb 8.7 L Hct 28.2 L MCHC 31 L RDW 17.0 H MCV MCH 26 L Lymph % (Auto) [place] % (Auto) 7.6 H [place] # Eos # Lymph # (Auto) [place] # (Auto) 1.2 H Eos # (Auto) Seg Neutrophils % 75.4 H Seg Neuts % (Manual) Baso # (Auto) Lymphocytes % (Manual) Monocytes % (Manual) Eosinophils % (Manual) Basophils % (Manual) Seg Neutrophils # 11.6 H Seg Neutrophils # Man Lymphocytes # (Manual) Monocytes # (Manual) Eosinophils # (Manual) Nucleated RBC % Basophils # (Manual) PT INR APTT Heparin Anti-Xa Level ABG pH POC ABG pO2 ABG pO2 ABG HCO3 ABG O2 Saturation ABG Base Excess POC ABG pCO2 ABG Hemoglobin ABG Oxyhemoglobin ABG Glucose Oxyhemoglobin Sodium 148 H Potassium 3.5 L Chloride Carbon Dioxide 32 H BUN Creatinine 0.6 L Glucose 114 H POC Glucose 111 H Lactic Acid Calcium Phosphorus Magnesium AST ALT 59 H Lactate Dehydrogenase CK-MB (CK-2) C-Reactive Protein NT-Pro-B Natriuret Pep Total Protein Albumin 2.6 L Arterial Blood Glucose Urine WBC (Auto) Urine Creatinine 01/05/20 01/05/20 01/05/20 04:05 04:05 05:19 WBC 11.7 H RBC 3.50 L Hgb 9.3 L Hct 29.9 L MCHC 31 L RDW 16.6 H MCV MCH 27 L Lymph % (Auto) 13.1 L [place] % (Auto) 9.7 H [place] # Eos # Lymph # (Auto) [place] # (Auto) 1.1 H Eos # (Auto) Seg Neutrophils % 74.0 H Seg Neuts % (Manual) Baso # (Auto) Lymphocytes % (Manual) Monocytes % (Manual) Eosinophils % (Manual) Basophils % (Manual) Seg Neutrophils # 8.6 H Seg Neutrophils # Man Lymphocytes # (Manual) Monocytes # (Manual) Eosinophils # (Manual) Nucleated RBC % Basophils # (Manual) PT INR APTT Heparin Anti-Xa Level ABG pH POC ABG pO2 ABG pO2 ABG HCO3 ABG O2 Saturation ABG Base Excess POC ABG pCO2 ABG Hemoglobin ABG Oxyhemoglobin ABG Glucose Oxyhemoglobin Sodium 151 H Potassium Chloride Carbon Dioxide 34 H BUN Creatinine 0.7 L Glucose POC Glucose 112 H Lactic Acid Calcium Phosphorus Magnesium AST ALT 59 H Lactate Dehydrogenase CK-MB (CK-2) C-Reactive Protein NT-Pro-B Natriuret Pep Total Protein 5.8 L Albumin 2.6 L Arterial Blood Glucose Urine WBC (Auto) Urine Creatinine 01/05/20 01/06/20 01/06/20 16:04 00:23 04:44 WBC RBC 3.36 L Hgb 8.9 L Hct 28.7 L MCHC 31 L RDW 16.9 H MCV MCH 26 L Lymph % (Auto) [place] % (Auto) 9.4 H [place] # Eos # Lymph # (Auto) [place] # (Auto) Eos # (Auto) Seg Neutrophils % Seg Neuts % (Manual) Baso # (Auto) Lymphocytes % (Manual) Monocytes % (Manual) Eosinophils % (Manual) Basophils % (Manual) Seg Neutrophils # Seg Neutrophils # Man Lymphocytes # (Manual) Monocytes # (Manual) Eosinophils # (Manual) Nucleated RBC % Basophils # (Manual) PT INR APTT Heparin Anti-Xa Level ABG pH POC ABG pO2 ABG pO2 ABG HCO3 ABG O2 Saturation ABG Base Excess POC ABG pCO2 ABG Hemoglobin ABG Oxyhemoglobin ABG Glucose Oxyhemoglobin Sodium 151 H Potassium 3.2 L Chloride Carbon Dioxide 34 H BUN Creatinine 0.6 L Glucose POC Glucose 107 H Lactic Acid Calcium Phosphorus Magnesium AST ALT Lactate Dehydrogenase CK-MB (CK-2) C-Reactive Protein NT-Pro-B Natriuret Pep Total Protein Albumin Arterial Blood Glucose Urine WBC (Auto) Urine Creatinine 01/06/20 01/06/20 01/06/20 04:44 05:33 12:04 WBC RBC Hgb Hct MCHC RDW MCV MCH Lymph % (Auto) [place] % (Auto) [place] # Eos # Lymph # (Auto) [place] # (Auto) Eos # (Auto) Seg Neutrophils % Seg Neuts % (Manual) Baso # (Auto) Lymphocytes % (Manual) Monocytes % (Manual) Eosinophils % (Manual) Basophils % (Manual) Seg Neutrophils # Seg Neutrophils # Man Lymphocytes # (Manual) Monocytes # (Manual) Eosinophils # (Manual) Nucleated RBC % Basophils # (Manual) PT INR APTT Heparin Anti-Xa Level ABG pH POC ABG pO2 ABG pO2 ABG HCO3 ABG O2 Saturation ABG Base Excess POC ABG pCO2 ABG Hemoglobin ABG Oxyhemoglobin ABG Glucose Oxyhemoglobin Sodium 151 H Potassium 3.4 L Chloride Carbon Dioxide 33 H BUN Creatinine 0.6 L Glucose 118 H POC Glucose 118 H 123 H Lactic Acid Calcium Phosphorus Magnesium AST ALT Lactate Dehydrogenase CK-MB (CK-2) C-Reactive Protein NT-Pro-B Natriuret Pep Total Protein 6.2 L Albumin 2.6 L Arterial Blood Glucose Urine WBC (Auto) Urine Creatinine 01/06/20 01/07/20 01/07/20 17:54 00:06 04:10 WBC RBC 3.42 L Hgb 8.9 L Hct 29.0 L MCHC 31 L RDW 17.1 H MCV MCH 26 L Lymph % (Auto) [place] % (Auto) 8.4 H [place] # Eos # Lymph # (Auto) [place] # (Auto) Eos # (Auto) Seg Neutrophils % Seg Neuts % (Manual) Baso # (Auto) Lymphocytes % (Manual) Monocytes % (Manual) Eosinophils % (Manual) Basophils % (Manual) Seg Neutrophils # Seg Neutrophils # Man Lymphocytes # (Manual) Monocytes # (Manual) Eosinophils # (Manual) Nucleated RBC % Basophils # (Manual) PT INR APTT Heparin Anti-Xa Level ABG pH POC ABG pO2 ABG pO2 ABG HCO3 ABG O2 Saturation ABG Base Excess POC ABG pCO2 ABG Hemoglobin ABG Oxyhemoglobin ABG Glucose Oxyhemoglobin Sodium Potassium Chloride Carbon Dioxide BUN Creatinine Glucose POC Glucose 112 H 126 H Lactic Acid Calcium Phosphorus Magnesium AST ALT Lactate Dehydrogenase CK-MB (CK-2) C-Reactive Protein NT-Pro-B Natriuret Pep Total Protein Albumin Arterial Blood Glucose Urine WBC (Auto) Urine Creatinine 01/07/20 01/07/20 01/07/20 04:10 05:59 12:27 WBC RBC Hgb Hct MCHC RDW MCV MCH Lymph % (Auto) [place] % (Auto) [place] # Eos # Lymph # (Auto) [place] # (Auto) Eos # (Auto) Seg Neutrophils % Seg Neuts % (Manual) Baso # (Auto) Lymphocytes % (Manual) Monocytes % (Manual) Eosinophils % (Manual) Basophils % (Manual) Seg Neutrophils # Seg Neutrophils # Man Lymphocytes # (Manual) Monocytes # (Manual) Eosinophils # (Manual) Nucleated RBC % Basophils # (Manual) PT INR APTT Heparin Anti-Xa Level ABG pH POC ABG pO2 ABG pO2 ABG HCO3 ABG O2 Saturation ABG Base Excess POC ABG pCO2 ABG Hemoglobin ABG Oxyhemoglobin ABG Glucose Oxyhemoglobin Sodium 153 H Potassium 3.5 L Chloride Carbon Dioxide 34 H BUN Creatinine 0.6 L Glucose 121 H POC Glucose 121 H 126 H Lactic Acid Calcium Phosphorus Magnesium AST ALT Lactate Dehydrogenase CK-MB (CK-2) C-Reactive Protein NT-Pro-B Natriuret Pep Total Protein 5.9 L Albumin 2.4 L Arterial Blood Glucose Urine WBC (Auto) Urine Creatinine 01/07/20 01/08/20 01/08/20 18:12 00:03 05:41 WBC RBC Hgb Hct MCHC RDW MCV MCH Lymph % (Auto) [place] % (Auto) [place] # Eos # Lymph # (Auto) [place] # (Auto) Eos # (Auto) Seg Neutrophils % Seg Neuts % (Manual) Baso # (Auto) Lymphocytes % (Manual) Monocytes % (Manual) Eosinophils % (Manual) Basophils % (Manual) Seg Neutrophils # Seg Neutrophils # Man Lymphocytes # (Manual) Monocytes # (Manual) Eosinophils # (Manual) Nucleated RBC % Basophils # (Manual) PT INR APTT Heparin Anti-Xa Level ABG pH POC ABG pO2 ABG pO2 ABG HCO3 ABG O2 Saturation ABG Base Excess POC ABG pCO2 ABG Hemoglobin ABG Oxyhemoglobin ABG Glucose Oxyhemoglobin Sodium Potassium Chloride Carbon Dioxide BUN Creatinine Glucose POC Glucose 124 H 130 H 138 H Lactic Acid Calcium Phosphorus Magnesium AST ALT Lactate Dehydrogenase CK-MB (CK-2) C-Reactive Protein NT-Pro-B Natriuret Pep Total Protein Albumin Arterial Blood Glucose Urine WBC (Auto) Urine Creatinine 01/08/20 01/08/20 01/08/20 09:28 11:42 18:21 WBC RBC Hgb Hct MCHC RDW MCV MCH Lymph % (Auto) [place] % (Auto) [place] # Eos # Lymph # (Auto) [place] # (Auto) Eos # (Auto) Seg Neutrophils % Seg Neuts % (Manual) Baso # (Auto) Lymphocytes % (Manual) Monocytes % (Manual) Eosinophils % (Manual) Basophils % (Manual) Seg Neutrophils # Seg Neutrophils # Man Lymphocytes # (Manual) Monocytes # (Manual) Eosinophils # (Manual) Nucleated RBC % Basophils # (Manual) PT INR APTT Heparin Anti-Xa Level ABG pH POC ABG pO2 ABG pO2 ABG HCO3 ABG O2 Saturation ABG Base Excess POC ABG pCO2 ABG Hemoglobin ABG Oxyhemoglobin ABG Glucose Oxyhemoglobin Sodium Potassium Chloride Carbon Dioxide BUN Creatinine Glucose POC Glucose 181 H 150 H 129 H Lactic Acid Calcium Phosphorus Magnesium AST ALT Lactate Dehydrogenase CK-MB (CK-2) C-Reactive Protein NT-Pro-B Natriuret Pep Total Protein Albumin Arterial Blood Glucose Urine WBC (Auto) Urine Creatinine 01/08/20 01/08/20 01/09/20 19:25 23:55 04:11 WBC RBC 3.43 L Hgb 8.9 L Hct 28.7 L MCHC 31 L RDW 17.6 H MCV MCH 26 L Lymph % (Auto) [place] % (Auto) 8.6 H [place] # Eos # Lymph # (Auto) [place] # (Auto) Eos # (Auto) Seg Neutrophils % Seg Neuts % (Manual) Baso # (Auto) Lymphocytes % (Manual) Monocytes % (Manual) Eosinophils % (Manual) Basophils % (Manual) Seg Neutrophils # Seg Neutrophils # Man Lymphocytes # (Manual) Monocytes # (Manual) Eosinophils # (Manual) Nucleated RBC % Basophils # (Manual) PT INR APTT Heparin Anti-Xa Level ABG pH POC ABG pO2 ABG pO2 ABG HCO3 ABG O2 Saturation ABG Base Excess POC ABG pCO2 ABG Hemoglobin ABG Oxyhemoglobin ABG Glucose Oxyhemoglobin Sodium Potassium Chloride Carbon Dioxide BUN Creatinine 0.7 L Glucose 117 H POC Glucose 132 H Lactic Acid Calcium Phosphorus Magnesium AST ALT Lactate Dehydrogenase CK-MB (CK-2) C-Reactive Protein NT-Pro-B Natriuret Pep Total Protein Albumin Arterial Blood Glucose Urine WBC (Auto) Urine Creatinine 01/09/20 01/09/20 01/09/20 04:11 05:38 22:58 WBC RBC Hgb Hct MCHC RDW MCV MCH Lymph % (Auto) [place] % (Auto) [place] # Eos # Lymph # (Auto) [place] # (Auto) Eos # (Auto) Seg Neutrophils % Seg Neuts % (Manual) Baso # (Auto) Lymphocytes % (Manual) Monocytes % (Manual) Eosinophils % (Manual) Basophils % (Manual) Seg Neutrophils # Seg Neutrophils # Man Lymphocytes # (Manual) Monocytes # (Manual) Eosinophils # (Manual) Nucleated RBC % Basophils # (Manual) PT INR APTT Heparin Anti-Xa Level ABG pH POC ABG pO2 ABG pO2 ABG HCO3 ABG O2 Saturation ABG Base Excess POC ABG pCO2 ABG Hemoglobin ABG Oxyhemoglobin ABG Glucose Oxyhemoglobin Sodium 147 H Potassium 3.3 L D Chloride Carbon Dioxide 32 H BUN Creatinine 0.6 L Glucose 106 H POC Glucose 107 H 113 H Lactic Acid Calcium Phosphorus Magnesium AST ALT Lactate Dehydrogenase CK-MB (CK-2) C-Reactive Protein NT-Pro-B Natriuret Pep Total Protein Albumin Arterial Blood Glucose Urine WBC (Auto) Urine Creatinine 01/10/20 01/10/20 01/10/20 04:05 11:36 17:54 WBC RBC Hgb Hct MCHC RDW MCV MCH Lymph % (Auto) [place] % (Auto) [place] # Eos # Lymph # (Auto) [place] # (Auto) Eos # (Auto) Seg Neutrophils % Seg Neuts % (Manual) Baso # (Auto) Lymphocytes % (Manual) Monocytes % (Manual) Eosinophils % (Manual) Basophils % (Manual) Seg Neutrophils # Seg Neutrophils # Man Lymphocytes # (Manual) Monocytes # (Manual) Eosinophils # (Manual) Nucleated RBC % Basophils # (Manual) PT INR APTT Heparin Anti-Xa Level ABG pH POC ABG pO2 ABG pO2 ABG HCO3 ABG O2 Saturation ABG Base Excess POC ABG pCO2 ABG Hemoglobin ABG Oxyhemoglobin ABG Glucose Oxyhemoglobin Sodium Potassium Chloride Carbon Dioxide BUN Creatinine 0.7 L Glucose 110 H POC Glucose 129 H 117 H Lactic Acid Calcium Phosphorus Magnesium AST ALT Lactate Dehydrogenase CK-MB (CK-2) C-Reactive Protein NT-Pro-B Natriuret Pep Total Protein Albumin Arterial Blood Glucose Urine WBC (Auto) Urine Creatinine 01/10/20 01/11/20 01/11/20 23:52 03:19 12:09 WBC RBC Hgb Hct MCHC RDW MCV MCH Lymph % (Auto) [place] % (Auto) [place] # Eos # Lymph # (Auto) [place] # (Auto) Eos # (Auto) Seg Neutrophils % Seg Neuts % (Manual) Baso # (Auto) Lymphocytes % (Manual) Monocytes % (Manual) Eosinophils % (Manual) Basophils % (Manual) Seg Neutrophils # Seg Neutrophils # Man Lymphocytes # (Manual) Monocytes # (Manual) Eosinophils # (Manual) Nucleated RBC % Basophils # (Manual) PT INR APTT Heparin Anti-Xa Level ABG pH POC ABG pO2 ABG pO2 ABG HCO3 ABG O2 Saturation ABG Base Excess POC ABG pCO2 ABG Hemoglobin ABG Oxyhemoglobin ABG Glucose Oxyhemoglobin Sodium Potassium Chloride Carbon Dioxide BUN Creatinine Glucose POC Glucose 117 H 136 H 115 H Lactic Acid Calcium Phosphorus Magnesium AST ALT Lactate Dehydrogenase CK-MB (CK-2) C-Reactive Protein NT-Pro-B Natriuret Pep Total Protein Albumin Arterial Blood Glucose Urine WBC (Auto) Urine Creatinine 01/11/20 01/11/20 01/12/20 18:27 23:28 00:23 WBC RBC Hgb 9.8 L Hct 31.6 L MCHC 31 L RDW 17.8 H MCV 83 L MCH 26 L Lymph % (Auto) [place] % (Auto) 8.0 H [place] # Eos # Lymph # (Auto) [place] # (Auto) Eos # (Auto) Seg Neutrophils % Seg Neuts % (Manual) Baso # (Auto) Lymphocytes % (Manual) Monocytes % (Manual) Eosinophils % (Manual) Basophils % (Manual) Seg Neutrophils # Seg Neutrophils # Man Lymphocytes # (Manual) Monocytes # (Manual) Eosinophils # (Manual) Nucleated RBC % Basophils # (Manual) PT INR APTT Heparin Anti-Xa Level ABG pH POC ABG pO2 ABG pO2 ABG HCO3 ABG O2 Saturation ABG Base Excess POC ABG pCO2 ABG Hemoglobin ABG Oxyhemoglobin ABG Glucose Oxyhemoglobin Sodium Potassium Chloride Carbon Dioxide BUN Creatinine Glucose POC Glucose 118 H 122 H Lactic Acid Calcium Phosphorus Magnesium AST ALT Lactate Dehydrogenase CK-MB (CK-2) C-Reactive Protein NT-Pro-B Natriuret Pep Total Protein Albumin Arterial Blood Glucose Urine WBC (Auto) Urine Creatinine 01/12/20 01/12/20 01/12/20 00:23 04:18 04:18 WBC RBC Hgb 9.6 L Hct 30.9 L MCHC 31 L RDW 17.3 H MCV 81 L MCH 25 L Lymph % (Auto) [place] % (Auto) [place] # Eos # Lymph # (Auto) [place] # (Auto) Eos # (Auto) Seg Neutrophils % Seg Neuts % (Manual) Baso # (Auto) Lymphocytes % (Manual) Monocytes % (Manual) Eosinophils % (Manual) Basophils % (Manual) Seg Neutrophils # Seg Neutrophils # Man Lymphocytes # (Manual) Monocytes # (Manual) Eosinophils # (Manual) Nucleated RBC % Basophils # (Manual) PT INR APTT Heparin Anti-Xa Level ABG pH POC ABG pO2 ABG pO2 ABG HCO3 ABG O2 Saturation ABG Base Excess POC ABG pCO2 ABG Hemoglobin ABG Oxyhemoglobin ABG Glucose Oxyhemoglobin Sodium Potassium Chloride Carbon Dioxide BUN Creatinine 0.7 L 0.7 L Glucose 111 H 108 H POC Glucose Lactic Acid Calcium Phosphorus Magnesium AST ALT Lactate Dehydrogenase CK-MB (CK-2) C-Reactive Protein NT-Pro-B Natriuret Pep Total Protein Albumin 2.6 L Arterial Blood Glucose Urine WBC (Auto) Urine Creatinine 01/12/20 01/12/20 01/12/20 06:03 12:27 13:58 WBC RBC Hgb Hct MCHC RDW MCV MCH Lymph % (Auto) [place] % (Auto) [place] # Eos # Lymph # (Auto) [place] # (Auto) Eos # (Auto) Seg Neutrophils % Seg Neuts % (Manual) Baso # (Auto) Lymphocytes % (Manual) Monocytes % (Manual) Eosinophils % (Manual) Basophils % (Manual) Seg Neutrophils # Seg Neutrophils # Man Lymphocytes # (Manual) Monocytes # (Manual) Eosinophils # (Manual) Nucleated RBC % Basophils # (Manual) PT INR APTT Heparin Anti-Xa Level ABG pH 7.453 H POC ABG pO2 76.6 L ABG pO2 ABG HCO3 ABG O2 Saturation ABG Base Excess POC ABG pCO2 ABG Hemoglobin 10.3 L ABG Oxyhemoglobin ABG Glucose 99 H Oxyhemoglobin Sodium Potassium Chloride Carbon Dioxide BUN Creatinine Glucose POC Glucose 128 H 121 H Lactic Acid Calcium Phosphorus Magnesium AST ALT Lactate Dehydrogenase CK-MB (CK-2) C-Reactive Protein NT-Pro-B Natriuret Pep Total Protein Albumin Arterial Blood Glucose 99 H Urine WBC (Auto) Urine Creatinine 01/12/20 01/13/20 01/13/20 18:24 12:01 17:46 WBC RBC Hgb Hct MCHC RDW MCV MCH Lymph % (Auto) [place] % (Auto) [place] # Eos # Lymph # (Auto) [place] # (Auto) Eos # (Auto) Seg Neutrophils % Seg Neuts % (Manual) Baso # (Auto) Lymphocytes % (Manual) Monocytes % (Manual) Eosinophils % (Manual) Basophils % (Manual) Seg Neutrophils # Seg Neutrophils # Man Lymphocytes # (Manual) Monocytes # (Manual) Eosinophils # (Manual) Nucleated RBC % Basophils # (Manual) PT INR APTT Heparin Anti-Xa Level ABG pH POC ABG pO2 ABG pO2 ABG HCO3 ABG O2 Saturation ABG Base Excess POC ABG pCO2 ABG Hemoglobin ABG Oxyhemoglobin ABG Glucose Oxyhemoglobin Sodium Potassium Chloride Carbon Dioxide BUN Creatinine Glucose POC Glucose 119 H 107 H 124 H Lactic Acid Calcium Phosphorus Magnesium AST ALT Lactate Dehydrogenase CK-MB (CK-2) C-Reactive Protein NT-Pro-B Natriuret Pep Total Protein Albumin Arterial Blood Glucose Urine WBC (Auto) Urine Creatinine 01/13/20 01/14/20 01/14/20 20:40 00:10 05:33 WBC RBC Hgb Hct MCHC RDW MCV MCH Lymph % (Auto) [place] % (Auto) [place] # Eos # Lymph # (Auto) [place] # (Auto) Eos # (Auto) Seg Neutrophils % Seg Neuts % (Manual) Baso # (Auto) Lymphocytes % (Manual) Monocytes % (Manual) Eosinophils % (Manual) Basophils % (Manual) Seg Neutrophils # Seg Neutrophils # Man Lymphocytes # (Manual) Monocytes # (Manual) Eosinophils # (Manual) Nucleated RBC % Basophils # (Manual) PT INR APTT Heparin Anti-Xa Level ABG pH POC ABG pO2 ABG pO2 65.3 L ABG HCO3 31.8 H ABG O2 Saturation 93.5 L ABG Base Excess 6.7 H POC ABG pCO2 ABG Hemoglobin 13.3 L ABG Oxyhemoglobin ABG Glucose Oxyhemoglobin 90.9 L Sodium Potassium Chloride Carbon Dioxide BUN Creatinine Glucose POC Glucose 111 H 111 H Lactic Acid Calcium Phosphorus Magnesium AST ALT Lactate Dehydrogenase CK-MB (CK-2) C-Reactive Protein NT-Pro-B Natriuret Pep Total Protein Albumin Arterial Blood Glucose Urine WBC (Auto) Urine Creatinine 01/14/20 01/14/20 01/14/20 12:10 16:14 16:14 WBC RBC Hgb 10.6 L Hct 34.2 L MCHC 31 L RDW 18.3 H MCV 83 L MCH 26 L Lymph % (Auto) [place] % (Auto) 7.4 H [place] # Eos # Lymph # (Auto) [place] # (Auto) Eos # (Auto) Seg Neutrophils % 71.9 H Seg Neuts % (Manual) Baso # (Auto) Lymphocytes % (Manual) Monocytes % (Manual) Eosinophils % (Manual) Basophils % (Manual) Seg Neutrophils # Seg Neutrophils # Man Lymphocytes # (Manual) Monocytes # (Manual) Eosinophils # (Manual) Nucleated RBC % Basophils # (Manual) PT INR APTT Heparin Anti-Xa Level ABG pH POC ABG pO2 ABG pO2 ABG HCO3 ABG O2 Saturation ABG Base Excess POC ABG pCO2 ABG Hemoglobin ABG Oxyhemoglobin ABG Glucose Oxyhemoglobin Sodium Potassium Chloride Carbon Dioxide 31 H BUN Creatinine 0.6 L Glucose 131 H POC Glucose 139 H Lactic Acid Calcium Phosphorus Magnesium AST ALT Lactate Dehydrogenase CK-MB (CK-2) C-Reactive Protein NT-Pro-B Natriuret Pep Total Protein Albumin Arterial Blood Glucose Urine WBC (Auto) Urine Creatinine 01/14/20 01/15/20 01/15/20 18:05 00:52 05:35 WBC RBC Hgb Hct MCHC RDW MCV MCH Lymph % (Auto) [place] % (Auto) [place] # Eos # Lymph # (Auto) [place] # (Auto) Eos # (Auto) Seg Neutrophils % Seg Neuts % (Manual) Baso # (Auto) Lymphocytes % (Manual) Monocytes % (Manual) Eosinophils % (Manual) Basophils % (Manual) Seg Neutrophils # Seg Neutrophils # Man Lymphocytes # (Manual) Monocytes # (Manual) Eosinophils # (Manual) Nucleated RBC % Basophils # (Manual) PT INR APTT Heparin Anti-Xa Level ABG pH POC ABG pO2 ABG pO2 ABG HCO3 ABG O2 Saturation ABG Base Excess POC ABG pCO2 ABG Hemoglobin ABG Oxyhemoglobin ABG Glucose Oxyhemoglobin Sodium Potassium Chloride Carbon Dioxide BUN Creatinine Glucose POC Glucose 147 H 140 H 159 H Lactic Acid Calcium Phosphorus Magnesium AST ALT Lactate Dehydrogenase CK-MB (CK-2) C-Reactive Protein NT-Pro-B Natriuret Pep Total Protein Albumin Arterial Blood Glucose Urine WBC (Auto) Urine Creatinine 01/15/20 01/15/20 01/16/20 12:52 17:43 00:32 WBC RBC Hgb Hct MCHC RDW MCV MCH Lymph % (Auto) [place] % (Auto) [place] # Eos # Lymph # (Auto) [place] # (Auto) Eos # (Auto) Seg Neutrophils % Seg Neuts % (Manual) Baso # (Auto) Lymphocytes % (Manual) Monocytes % (Manual) Eosinophils % (Manual) Basophils % (Manual) Seg Neutrophils # Seg Neutrophils # Man Lymphocytes # (Manual) Monocytes # (Manual) Eosinophils # (Manual) Nucleated RBC % Basophils # (Manual) PT INR APTT Heparin Anti-Xa Level ABG pH POC ABG pO2 ABG pO2 ABG HCO3 ABG O2 Saturation ABG Base Excess POC ABG pCO2 ABG Hemoglobin ABG Oxyhemoglobin ABG Glucose Oxyhemoglobin Sodium Potassium Chloride Carbon Dioxide BUN Creatinine Glucose POC Glucose 164 H 167 H 153 H Lactic Acid Calcium Phosphorus Magnesium AST ALT Lactate Dehydrogenase CK-MB (CK-2) C-Reactive Protein NT-Pro-B Natriuret Pep Total Protein Albumin Arterial Blood Glucose Urine WBC (Auto) Urine Creatinine 01/16/20 01/16/20 01/17/20 05:46 11:48 06:38 WBC RBC Hgb Hct MCHC RDW MCV MCH Lymph % (Auto) [place] % (Auto) [place] # Eos # Lymph # (Auto) [place] # (Auto) Eos # (Auto) Seg Neutrophils % Seg Neuts % (Manual) Baso # (Auto) Lymphocytes % (Manual) Monocytes % (Manual) Eosinophils % (Manual) Basophils % (Manual) Seg Neutrophils # Seg Neutrophils # Man Lymphocytes # (Manual) Monocytes # (Manual) Eosinophils # (Manual) Nucleated RBC % Basophils # (Manual) PT INR APTT Heparin Anti-Xa Level ABG pH POC ABG pO2 ABG pO2 ABG HCO3 ABG O2 Saturation ABG Base Excess POC ABG pCO2 ABG Hemoglobin ABG Oxyhemoglobin ABG Glucose Oxyhemoglobin Sodium Potassium Chloride Carbon Dioxide BUN Creatinine Glucose POC Glucose 163 H 155 H 116 H Lactic Acid Calcium Phosphorus Magnesium AST ALT Lactate Dehydrogenase CK-MB (CK-2) C-Reactive Protein NT-Pro-B Natriuret Pep Total Protein Albumin Arterial Blood Glucose Urine WBC (Auto) Urine Creatinine 01/17/20 01/17/20 01/18/20 11:36 17:43 00:12 WBC RBC Hgb Hct MCHC RDW MCV MCH Lymph % (Auto) [place] % (Auto) [place] # Eos # Lymph # (Auto) [place] # (Auto) Eos # (Auto) Seg Neutrophils % Seg Neuts % (Manual) Baso # (Auto) Lymphocytes % (Manual) Monocytes % (Manual) Eosinophils % (Manual) Basophils % (Manual) Seg Neutrophils # Seg Neutrophils # Man Lymphocytes # (Manual) Monocytes # (Manual) Eosinophils # (Manual) Nucleated RBC % Basophils # (Manual) PT INR APTT Heparin Anti-Xa Level ABG pH POC ABG pO2 ABG pO2 ABG HCO3 ABG O2 Saturation ABG Base Excess POC ABG pCO2 ABG Hemoglobin ABG Oxyhemoglobin ABG Glucose Oxyhemoglobin Sodium Potassium Chloride Carbon Dioxide BUN Creatinine Glucose POC Glucose 110 H 134 H 108 H Lactic Acid Calcium Phosphorus Magnesium AST ALT Lactate Dehydrogenase CK-MB (CK-2) C-Reactive Protein NT-Pro-B Natriuret Pep Total Protein Albumin Arterial Blood Glucose Urine WBC (Auto) Urine Creatinine 01/18/20 01/18/20 01/18/20 05:37 06:46 06:46 WBC RBC Hgb 10.1 L Hct 32.2 L MCHC 31 L RDW 18.1 H MCV 81 L MCH 25 L Lymph % (Auto) [place] % (Auto) [place] # Eos # Lymph # (Auto) [place] # (Auto) Eos # (Auto) Seg Neutrophils % 71.9 H Seg Neuts % (Manual) Baso # (Auto) Lymphocytes % (Manual) Monocytes % (Manual) Eosinophils % (Manual) Basophils % (Manual) Seg Neutrophils # Seg Neutrophils # Man Lymphocytes # (Manual) Monocytes # (Manual) Eosinophils # (Manual) Nucleated RBC % Basophils # (Manual) PT INR APTT Heparin Anti-Xa Level ABG pH POC ABG pO2 ABG pO2 ABG HCO3 ABG O2 Saturation ABG Base Excess POC ABG pCO2 ABG Hemoglobin ABG Oxyhemoglobin ABG Glucose Oxyhemoglobin Sodium Potassium Chloride Carbon Dioxide BUN Creatinine 0.7 L Glucose 155 H POC Glucose 168 H Lactic Acid Calcium Phosphorus Magnesium AST ALT Lactate Dehydrogenase CK-MB (CK-2) C-Reactive Protein NT-Pro-B Natriuret Pep Total Protein Albumin Arterial Blood Glucose Urine WBC (Auto) Urine Creatinine 01/18/20 01/18/20 01/18/20 12:05 17:14 23:28 WBC RBC Hgb Hct MCHC RDW MCV MCH Lymph % (Auto) [place] % (Auto) [place] # Eos # Lymph # (Auto) [place] # (Auto) Eos # (Auto) Seg Neutrophils % Seg Neuts % (Manual) Baso # (Auto) Lymphocytes % (Manual) Monocytes % (Manual) Eosinophils % (Manual) Basophils % (Manual) Seg Neutrophils # Seg Neutrophils # Man Lymphocytes # (Manual) Monocytes # (Manual) Eosinophils # (Manual) Nucleated RBC % Basophils # (Manual) PT INR APTT Heparin Anti-Xa Level ABG pH POC ABG pO2 ABG pO2 ABG HCO3 ABG O2 Saturation ABG Base Excess POC ABG pCO2 ABG Hemoglobin ABG Oxyhemoglobin ABG Glucose Oxyhemoglobin Sodium Potassium Chloride Carbon Dioxide BUN Creatinine Glucose POC Glucose 128 H 126 H 128 H Lactic Acid Calcium Phosphorus Magnesium AST ALT Lactate Dehydrogenase CK-MB (CK-2) C-Reactive Protein NT-Pro-B Natriuret Pep Total Protein Albumin Arterial Blood Glucose Urine WBC (Auto) Urine Creatinine 01/19/20 01/19/20 01/19/20 05:39 12:33 17:36 WBC RBC Hgb Hct MCHC RDW MCV MCH Lymph % (Auto) [place] % (Auto) [place] # Eos # Lymph # (Auto) [place] # (Auto) Eos # (Auto) Seg Neutrophils % Seg Neuts % (Manual) Baso # (Auto) Lymphocytes % (Manual) Monocytes % (Manual) Eosinophils % (Manual) Basophils % (Manual) Seg Neutrophils # Seg Neutrophils # Man Lymphocytes # (Manual) Monocytes # (Manual) Eosinophils # (Manual) Nucleated RBC % Basophils # (Manual) PT INR APTT Heparin Anti-Xa Level ABG pH POC ABG pO2 ABG pO2 ABG HCO3 ABG O2 Saturation ABG Base Excess POC ABG pCO2 ABG Hemoglobin ABG Oxyhemoglobin ABG Glucose Oxyhemoglobin Sodium Potassium Chloride Carbon Dioxide BUN Creatinine Glucose POC Glucose 164 H 171 H 152 H Lactic Acid Calcium Phosphorus Magnesium AST ALT Lactate Dehydrogenase CK-MB (CK-2) C-Reactive Protein NT-Pro-B Natriuret Pep Total Protein Albumin Arterial Blood Glucose Urine WBC (Auto) Urine Creatinine 01/20/20 01/20/20 01/20/20 00:12 05:20 05:35 WBC RBC Hgb 9.2 L Hct 29.4 L MCHC 31 L RDW 17.9 H MCV 81 L MCH 25 L Lymph % (Auto) [place] % (Auto) [place] # Eos # Lymph # (Auto) [place] # (Auto) Eos # (Auto) Seg Neutrophils % Seg Neuts % (Manual) Baso # (Auto) Lymphocytes % (Manual) Monocytes % (Manual) Eosinophils % (Manual) Basophils % (Manual) Seg Neutrophils # Seg Neutrophils # Man Lymphocytes # (Manual) Monocytes # (Manual) Eosinophils # (Manual) Nucleated RBC % Basophils # (Manual) PT INR APTT Heparin Anti-Xa Level ABG pH POC ABG pO2 ABG pO2 ABG HCO3 ABG O2 Saturation ABG Base Excess POC ABG pCO2 ABG Hemoglobin ABG Oxyhemoglobin ABG Glucose Oxyhemoglobin Sodium Potassium Chloride Carbon Dioxide BUN Creatinine Glucose POC Glucose 120 H 136 H Lactic Acid Calcium Phosphorus Magnesium AST ALT Lactate Dehydrogenase CK-MB (CK-2) C-Reactive Protein NT-Pro-B Natriuret Pep Total Protein Albumin Arterial Blood Glucose Urine WBC (Auto) Urine Creatinine 01/20/20 01/20/20 01/20/20 05:40 11:58 14:55 WBC RBC Hgb 9.0 L Hct 28.3 L MCHC RDW MCV MCH Lymph % (Auto) [place] % (Auto) [place] # Eos # Lymph # (Auto) [place] # (Auto) Eos # (Auto) Seg Neutrophils % Seg Neuts % (Manual) Baso # (Auto) Lymphocytes % (Manual) Monocytes % (Manual) Eosinophils % (Manual) Basophils % (Manual) Seg Neutrophils # Seg Neutrophils # Man Lymphocytes # (Manual) Monocytes # (Manual) Eosinophils # (Manual) Nucleated RBC % Basophils # (Manual) PT INR APTT Heparin Anti-Xa Level ABG pH POC ABG pO2 ABG pO2 ABG HCO3 ABG O2 Saturation ABG Base Excess POC ABG pCO2 ABG Hemoglobin ABG Oxyhemoglobin ABG Glucose Oxyhemoglobin Sodium Potassium Chloride Carbon Dioxide 32 H BUN 22 H Creatinine 0.7 L Glucose 128 H POC Glucose 152 H Lactic Acid Calcium Phosphorus Magnesium AST ALT Lactate Dehydrogenase CK-MB (CK-2) C-Reactive Protein NT-Pro-B Natriuret Pep Total Protein Albumin Arterial Blood Glucose Urine WBC (Auto) Urine Creatinine 01/20/20 01/20/20 01/20/20 14:55 18:14 21:35 WBC RBC Hgb Hct MCHC RDW MCV MCH Lymph % (Auto) [place] % (Auto) [place] # Eos # Lymph # (Auto) [place] # (Auto) Eos # (Auto) Seg Neutrophils % Seg Neuts % (Manual) Baso # (Auto) Lymphocytes % (Manual) Monocytes % (Manual) Eosinophils % (Manual) Basophils % (Manual) Seg Neutrophils # Seg Neutrophils # Man Lymphocytes # (Manual) Monocytes # (Manual) Eosinophils # (Manual) Nucleated RBC % Basophils # (Manual) PT 20.4 H INR 1.72 H APTT 40.6 H Heparin Anti-Xa Level > 2.00 H ABG pH POC ABG pO2 ABG pO2 ABG HCO3 ABG O2 Saturation ABG Base Excess POC ABG pCO2 ABG Hemoglobin ABG Oxyhemoglobin ABG Glucose Oxyhemoglobin Sodium Potassium Chloride Carbon Dioxide BUN Creatinine Glucose POC Glucose 150 H Lactic Acid Calcium Phosphorus Magnesium AST ALT Lactate Dehydrogenase CK-MB (CK-2) C-Reactive Protein NT-Pro-B Natriuret Pep Total Protein Albumin Arterial Blood Glucose Urine WBC (Auto) Urine Creatinine 01/21/20 01/21/20 01/21/20 00:30 05:47 05:59 WBC RBC Hgb Hct MCHC RDW MCV MCH Lymph % (Auto) [place] % (Auto) [place] # Eos # Lymph # (Auto) [place] # (Auto) Eos # (Auto) Seg Neutrophils % Seg Neuts % (Manual) Baso # (Auto) Lymphocytes % (Manual) Monocytes % (Manual) Eosinophils % (Manual) Basophils % (Manual) Seg Neutrophils # Seg Neutrophils # Man Lymphocytes # (Manual) Monocytes # (Manual) Eosinophils # (Manual) Nucleated RBC % Basophils # (Manual) PT INR APTT Heparin Anti-Xa Level 1.93 H ABG pH POC ABG pO2 ABG pO2 ABG HCO3 ABG O2 Saturation ABG Base Excess POC ABG pCO2 ABG Hemoglobin ABG Oxyhemoglobin ABG Glucose Oxyhemoglobin Sodium Potassium Chloride Carbon Dioxide BUN Creatinine Glucose POC Glucose 126 H 148 H Lactic Acid Calcium Phosphorus Magnesium AST ALT Lactate Dehydrogenase CK-MB (CK-2) C-Reactive Protein NT-Pro-B Natriuret Pep Total Protein Albumin Arterial Blood Glucose Urine WBC (Auto) Urine Creatinine 01/21/20 01/21/20 01/21/20 12:32 18:20 23:54 WBC RBC Hgb Hct MCHC RDW MCV MCH Lymph % (Auto) [place] % (Auto) [place] # Eos # Lymph # (Auto) [place] # (Auto) Eos # (Auto) Seg Neutrophils % Seg Neuts % (Manual) Baso # (Auto) Lymphocytes % (Manual) Monocytes % (Manual) Eosinophils % (Manual) Basophils % (Manual) Seg Neutrophils # Seg Neutrophils # Man Lymphocytes # (Manual) Monocytes # (Manual) Eosinophils # (Manual) Nucleated RBC % Basophils # (Manual) PT INR APTT Heparin Anti-Xa Level 1.28 H ABG pH POC ABG pO2 ABG pO2 ABG HCO3 ABG O2 Saturation ABG Base Excess POC ABG pCO2 ABG Hemoglobin ABG Oxyhemoglobin ABG Glucose Oxyhemoglobin Sodium Potassium Chloride Carbon Dioxide BUN Creatinine Glucose POC Glucose 112 H 146 H Lactic Acid Calcium Phosphorus Magnesium AST ALT Lactate Dehydrogenase CK-MB (CK-2) C-Reactive Protein NT-Pro-B Natriuret Pep Total Protein Albumin Arterial Blood Glucose Urine WBC (Auto) Urine Creatinine 01/22/20 01/22/20 01/22/20 04:45 04:45 05:48 WBC RBC Hgb 9.3 L Hct 29.0 L MCHC RDW MCV MCH Lymph % (Auto) [place] % (Auto) [place] # Eos # Lymph # (Auto) [place] # (Auto) Eos # (Auto) Seg Neutrophils % Seg Neuts % (Manual) Baso # (Auto) Lymphocytes % (Manual) Monocytes % (Manual) Eosinophils % (Manual) Basophils % (Manual) Seg Neutrophils # Seg Neutrophils # Man Lymphocytes # (Manual) Monocytes # (Manual) Eosinophils # (Manual) Nucleated RBC % Basophils # (Manual) PT INR APTT Heparin Anti-Xa Level 1.34 H ABG pH POC ABG pO2 ABG pO2 ABG HCO3 ABG O2 Saturation ABG Base Excess POC ABG pCO2 ABG Hemoglobin ABG Oxyhemoglobin ABG Glucose Oxyhemoglobin Sodium Potassium Chloride Carbon Dioxide BUN Creatinine Glucose POC Glucose 142 H Lactic Acid Calcium Phosphorus Magnesium AST ALT Lactate Dehydrogenase CK-MB (CK-2) C-Reactive Protein NT-Pro-B Natriuret Pep Total Protein Albumin Arterial Blood Glucose Urine WBC (Auto) Urine Creatinine 01/22/20 01/22/20 01/22/20 08:09 08:22 09:58 WBC RBC Hgb Hct MCHC RDW MCV MCH Lymph % (Auto) [place] % (Auto) [place] # Eos # Lymph # (Auto) [place] # (Auto) Eos # (Auto) Seg Neutrophils % Seg Neuts % (Manual) Baso # (Auto) Lymphocytes % (Manual) Monocytes % (Manual) Eosinophils % (Manual) Basophils % (Manual) Seg Neutrophils # Seg Neutrophils # Man Lymphocytes # (Manual) Monocytes # (Manual) Eosinophils # (Manual) Nucleated RBC % Basophils # (Manual) PT 16.9 H INR 1.34 H APTT Heparin Anti-Xa Level ABG pH POC ABG pO2 ABG pO2 ABG HCO3 ABG O2 Saturation ABG Base Excess POC ABG pCO2 ABG Hemoglobin ABG Oxyhemoglobin ABG Glucose Oxyhemoglobin Sodium Potassium Chloride 97.8 L Carbon Dioxide BUN 29 H Creatinine Glucose 128 H POC Glucose 131 H Lactic Acid Calcium Phosphorus Magnesium AST ALT Lactate Dehydrogenase CK-MB (CK-2) C-Reactive Protein NT-Pro-B Natriuret Pep Total Protein Albumin Arterial Blood Glucose Urine WBC (Auto) Urine Creatinine 01/22/20 01/22/20 01/22/20 12:44 16:13 18:18 WBC RBC Hgb Hct MCHC RDW MCV MCH Lymph % (Auto) [place] % (Auto) [place] # Eos # Lymph # (Auto) [place] # (Auto) Eos # (Auto) Seg Neutrophils % Seg Neuts % (Manual) Baso # (Auto) Lymphocytes % (Manual) Monocytes % (Manual) Eosinophils % (Manual) Basophils % (Manual) Seg Neutrophils # Seg Neutrophils # Man Lymphocytes # (Manual) Monocytes # (Manual) Eosinophils # (Manual) Nucleated RBC % Basophils # (Manual) PT INR APTT Heparin Anti-Xa Level ABG pH POC ABG pO2 ABG pO2 ABG HCO3 ABG O2 Saturation ABG Base Excess POC ABG pCO2 ABG Hemoglobin ABG Oxyhemoglobin ABG Glucose Oxyhemoglobin Sodium Potassium Chloride Carbon Dioxide BUN Creatinine Glucose POC Glucose 156 H 133 H 155 H Lactic Acid Calcium Phosphorus Magnesium AST ALT Lactate Dehydrogenase CK-MB (CK-2) C-Reactive Protein NT-Pro-B Natriuret Pep Total Protein Albumin Arterial Blood Glucose Urine WBC (Auto) Urine Creatinine 01/22/20 01/23/20 01/23/20 23:22 05:37 12:59 WBC RBC Hgb Hct MCHC RDW MCV MCH Lymph % (Auto) [place] % (Auto) [place] # Eos # Lymph # (Auto) [place] # (Auto) Eos # (Auto) Seg Neutrophils % Seg Neuts % (Manual) Baso # (Auto) Lymphocytes % (Manual) Monocytes % (Manual) Eosinophils % (Manual) Basophils % (Manual) Seg Neutrophils # Seg Neutrophils # Man Lymphocytes # (Manual) Monocytes # (Manual) Eosinophils # (Manual) Nucleated RBC % Basophils # (Manual) PT INR APTT Heparin Anti-Xa Level ABG pH POC ABG pO2 ABG pO2 ABG HCO3 ABG O2 Saturation ABG Base Excess POC ABG pCO2 ABG Hemoglobin ABG Oxyhemoglobin ABG Glucose Oxyhemoglobin Sodium Potassium Chloride Carbon Dioxide BUN Creatinine Glucose POC Glucose 148 H 163 H 175 H Lactic Acid Calcium Phosphorus Magnesium AST ALT Lactate Dehydrogenase CK-MB (CK-2) C-Reactive Protein NT-Pro-B Natriuret Pep Total Protein Albumin Arterial Blood Glucose Urine WBC (Auto) Urine Creatinine 01/23/20 01/23/20 01/24/20 17:28 23:56 04:30 WBC RBC 3.46 L Hgb 8.8 L Hct 27.8 L MCHC RDW 18.2 H MCV 81 L MCH 25 L Lymph % (Auto) [place] % (Auto) 7.8 H [place] # Eos # Lymph # (Auto) [place] # (Auto) Eos # (Auto) Seg Neutrophils % Seg Neuts % (Manual) Baso # (Auto) Lymphocytes % (Manual) Monocytes % (Manual) Eosinophils % (Manual) Basophils % (Manual) Seg Neutrophils # Seg Neutrophils # Man Lymphocytes # (Manual) Monocytes # (Manual) Eosinophils # (Manual) Nucleated RBC % Basophils # (Manual) PT INR APTT Heparin Anti-Xa Level ABG pH POC ABG pO2 ABG pO2 ABG HCO3 ABG O2 Saturation ABG Base Excess POC ABG pCO2 ABG Hemoglobin ABG Oxyhemoglobin ABG Glucose Oxyhemoglobin Sodium Potassium Chloride Carbon Dioxide BUN Creatinine Glucose POC Glucose 165 H 177 H Lactic Acid Calcium Phosphorus Magnesium AST ALT Lactate Dehydrogenase CK-MB (CK-2) C-Reactive Protein NT-Pro-B Natriuret Pep Total Protein Albumin Arterial Blood Glucose Urine WBC (Auto) Urine Creatinine 01/24/20 01/24/20 01/24/20 04:30 07:18 12:06 WBC RBC Hgb Hct MCHC RDW MCV MCH Lymph % (Auto) [place] % (Auto) [place] # Eos # Lymph # (Auto) [place] # (Auto) Eos # (Auto) Seg Neutrophils % Seg Neuts % (Manual) Baso # (Auto) Lymphocytes % (Manual) Monocytes % (Manual) Eosinophils % (Manual) Basophils % (Manual) Seg Neutrophils # Seg Neutrophils # Man Lymphocytes # (Manual) Monocytes # (Manual) Eosinophils # (Manual) Nucleated RBC % Basophils # (Manual) PT INR APTT Heparin Anti-Xa Level ABG pH POC ABG pO2 ABG pO2 ABG HCO3 ABG O2 Saturation ABG Base Excess POC ABG pCO2 ABG Hemoglobin ABG Oxyhemoglobin ABG Glucose Oxyhemoglobin Sodium Potassium Chloride 97.9 L Carbon Dioxide BUN 31 H Creatinine Glucose 146 H POC Glucose 151 H 133 H Lactic Acid Calcium Phosphorus Magnesium AST ALT Lactate Dehydrogenase CK-MB (CK-2) C-Reactive Protein NT-Pro-B Natriuret Pep Total Protein Albumin Arterial Blood Glucose Urine WBC (Auto) Urine Creatinine 01/24/20 01/25/20 01/25/20 17:36 00:08 04:25 WBC RBC 3.50 L Hgb 8.7 L Hct 27.9 L MCHC 31 L RDW 18.2 H MCV 80 L MCH 25 L Lymph % (Auto) [place] % (Auto) 8.5 H [place] # Eos # Lymph # (Auto) [place] # (Auto) Eos # (Auto) Seg Neutrophils % Seg Neuts % (Manual) Baso # (Auto) Lymphocytes % (Manual) Monocytes % (Manual) Eosinophils % (Manual) Basophils % (Manual) Seg Neutrophils # Seg Neutrophils # Man Lymphocytes # (Manual) Monocytes # (Manual) Eosinophils # (Manual) Nucleated RBC % Basophils # (Manual) PT INR APTT Heparin Anti-Xa Level ABG pH POC ABG pO2 ABG pO2 ABG HCO3 ABG O2 Saturation ABG Base Excess POC ABG pCO2 ABG Hemoglobin ABG Oxyhemoglobin ABG Glucose Oxyhemoglobin Sodium Potassium Chloride Carbon Dioxide BUN Creatinine Glucose POC Glucose 133 H 129 H Lactic Acid Calcium Phosphorus Magnesium AST ALT Lactate Dehydrogenase CK-MB (CK-2) C-Reactive Protein NT-Pro-B Natriuret Pep Total Protein Albumin Arterial Blood Glucose Urine WBC (Auto) Urine Creatinine 01/25/20 01/25/20 01/25/20 04:25 05:38 11:52 WBC RBC Hgb Hct MCHC RDW MCV MCH Lymph % (Auto) [place] % (Auto) [place] # Eos # Lymph # (Auto) [place] # (Auto) Eos # (Auto) Seg Neutrophils % Seg Neuts % (Manual) Baso # (Auto) Lymphocytes % (Manual) Monocytes % (Manual) Eosinophils % (Manual) Basophils % (Manual) Seg Neutrophils # Seg Neutrophils # Man Lymphocytes # (Manual) Monocytes # (Manual) Eosinophils # (Manual) Nucleated RBC % Basophils # (Manual) PT INR APTT Heparin Anti-Xa Level ABG pH POC ABG pO2 ABG pO2 ABG HCO3 ABG O2 Saturation ABG Base Excess POC ABG pCO2 ABG Hemoglobin ABG Oxyhemoglobin ABG Glucose Oxyhemoglobin Sodium Potassium Chloride Carbon Dioxide BUN 30 H Creatinine Glucose 134 H POC Glucose 129 H 134 H Lactic Acid Calcium Phosphorus Magnesium AST ALT Lactate Dehydrogenase CK-MB (CK-2) C-Reactive Protein NT-Pro-B Natriuret Pep Total Protein Albumin Arterial Blood Glucose Urine WBC (Auto) Urine Creatinine 01/25/20 01/25/20 01/26/20 17:13 21:02 00:59 WBC RBC Hgb Hct MCHC RDW MCV MCH Lymph % (Auto) [place] % (Auto) [place] # Eos # Lymph # (Auto) [place] # (Auto) Eos # (Auto) Seg Neutrophils % Seg Neuts % (Manual) Baso # (Auto) Lymphocytes % (Manual) Monocytes % (Manual) Eosinophils % (Manual) Basophils % (Manual) Seg Neutrophils # Seg Neutrophils # Man Lymphocytes # (Manual) Monocytes # (Manual) Eosinophils # (Manual) Nucleated RBC % Basophils # (Manual) PT INR APTT Heparin Anti-Xa Level ABG pH POC ABG pO2 ABG pO2 57.5 L ABG HCO3 31.7 H ABG O2 Saturation 90.3 L ABG Base Excess 6.6 H POC ABG pCO2 ABG Hemoglobin 13.0 L ABG Oxyhemoglobin ABG Glucose Oxyhemoglobin 87.5 L Sodium Potassium Chloride Carbon Dioxide BUN Creatinine Glucose POC Glucose 124 H 196 H Lactic Acid Calcium Phosphorus Magnesium AST ALT Lactate Dehydrogenase CK-MB (CK-2) C-Reactive Protein NT-Pro-B Natriuret Pep Total Protein Albumin Arterial Blood Glucose Urine WBC (Auto) Urine Creatinine 01/26/20 01/26/20 01/26/20 03:20 05:46 12:46 WBC RBC Hgb 9.2 L Hct 29.4 L MCHC RDW MCV MCH Lymph % (Auto) [place] % (Auto) [place] # Eos # Lymph # (Auto) [place] # (Auto) Eos # (Auto) Seg Neutrophils % Seg Neuts % (Manual) Baso # (Auto) Lymphocytes % (Manual) Monocytes % (Manual) Eosinophils % (Manual) Basophils % (Manual) Seg Neutrophils # Seg Neutrophils # Man Lymphocytes # (Manual) Monocytes # (Manual) Eosinophils # (Manual) Nucleated RBC % Basophils # (Manual) PT INR APTT Heparin Anti-Xa Level ABG pH POC ABG pO2 ABG pO2 ABG HCO3 ABG O2 Saturation ABG Base Excess POC ABG pCO2 ABG Hemoglobin ABG Oxyhemoglobin ABG Glucose Oxyhemoglobin Sodium Potassium Chloride Carbon Dioxide BUN Creatinine Glucose POC Glucose 141 H 122 H Lactic Acid Calcium Phosphorus Magnesium AST ALT Lactate Dehydrogenase CK-MB (CK-2) C-Reactive Protein NT-Pro-B Natriuret Pep Total Protein Albumin Arterial Blood Glucose Urine WBC (Auto) Urine Creatinine 01/26/20 01/26/20 01/27/20 18:03 23:55 04:47 WBC RBC Hgb Hct MCHC RDW MCV MCH Lymph % (Auto) [place] % (Auto) [place] # Eos # Lymph # (Auto) [place] # (Auto) Eos # (Auto) Seg Neutrophils % Seg Neuts % (Manual) Baso # (Auto) Lymphocytes % (Manual) Monocytes % (Manual) Eosinophils % (Manual) Basophils % (Manual) Seg Neutrophils # Seg Neutrophils # Man Lymphocytes # (Manual) Monocytes # (Manual) Eosinophils # (Manual) Nucleated RBC % Basophils # (Manual) PT INR APTT Heparin Anti-Xa Level ABG pH POC ABG pO2 ABG pO2 ABG HCO3 ABG O2 Saturation ABG Base Excess POC ABG pCO2 ABG Hemoglobin ABG Oxyhemoglobin ABG Glucose Oxyhemoglobin Sodium Potassium Chloride Carbon Dioxide BUN 30 H Creatinine 0.7 L Glucose 135 H POC Glucose 142 H 159 H Lactic Acid Calcium Phosphorus Magnesium AST ALT Lactate Dehydrogenase CK-MB (CK-2) C-Reactive Protein NT-Pro-B Natriuret Pep Total Protein Albumin Arterial Blood Glucose Urine WBC (Auto) Urine Creatinine 01/27/20 01/27/20 01/27/20 05:43 12:06 17:16 WBC RBC Hgb Hct MCHC RDW MCV MCH Lymph % (Auto) [place] % (Auto) [place] # Eos # Lymph # (Auto) [place] # (Auto) Eos # (Auto) Seg Neutrophils % Seg Neuts % (Manual) Baso # (Auto) Lymphocytes % (Manual) Monocytes % (Manual) Eosinophils % (Manual) Basophils % (Manual) Seg Neutrophils # Seg Neutrophils # Man Lymphocytes # (Manual) Monocytes # (Manual) Eosinophils # (Manual) Nucleated RBC % Basophils # (Manual) PT INR APTT Heparin Anti-Xa Level ABG pH POC ABG pO2 ABG pO2 ABG HCO3 ABG O2 Saturation ABG Base Excess POC ABG pCO2 ABG Hemoglobin ABG Oxyhemoglobin ABG Glucose Oxyhemoglobin Sodium Potassium Chloride Carbon Dioxide BUN Creatinine Glucose POC Glucose 143 H 142 H 128 H Lactic Acid Calcium Phosphorus Magnesium AST ALT Lactate Dehydrogenase CK-MB (CK-2) C-Reactive Protein NT-Pro-B Natriuret Pep Total Protein Albumin Arterial Blood Glucose Urine WBC (Auto) Urine Creatinine 01/27/20 01/28/20 01/28/20 23:55 04:37 05:55 WBC RBC Hgb 9.4 L Hct 29.9 L MCHC RDW MCV MCH Lymph % (Auto) [place] % (Auto) [place] # Eos # Lymph # (Auto) [place] # (Auto) Eos # (Auto) Seg Neutrophils % Seg Neuts % (Manual) Baso # (Auto) Lymphocytes % (Manual) Monocytes % (Manual) Eosinophils % (Manual) Basophils % (Manual) Seg Neutrophils # Seg Neutrophils # Man Lymphocytes # (Manual) Monocytes # (Manual) Eosinophils # (Manual) Nucleated RBC % Basophils # (Manual) PT INR APTT Heparin Anti-Xa Level ABG pH POC ABG pO2 ABG pO2 ABG HCO3 ABG O2 Saturation ABG Base Excess POC ABG pCO2 ABG Hemoglobin ABG Oxyhemoglobin ABG Glucose Oxyhemoglobin Sodium Potassium Chloride Carbon Dioxide BUN Creatinine Glucose POC Glucose 166 H 169 H Lactic Acid Calcium Phosphorus Magnesium AST ALT Lactate Dehydrogenase CK-MB (CK-2) C-Reactive Protein NT-Pro-B Natriuret Pep Total Protein Albumin Arterial Blood Glucose Urine WBC (Auto) Urine Creatinine 01/28/20 01/28/20 01/28/20 11:58 17:26 23:46 WBC RBC Hgb Hct MCHC RDW MCV MCH Lymph % (Auto) [place] % (Auto) [place] # Eos # Lymph # (Auto) [place] # (Auto) Eos # (Auto) Seg Neutrophils % Seg Neuts % (Manual) Baso # (Auto) Lymphocytes % (Manual) Monocytes % (Manual) Eosinophils % (Manual) Basophils % (Manual) Seg Neutrophils # Seg Neutrophils # Man Lymphocytes # (Manual) Monocytes # (Manual) Eosinophils # (Manual) Nucleated RBC % Basophils # (Manual) PT INR APTT Heparin Anti-Xa Level ABG pH POC ABG pO2 ABG pO2 ABG HCO3 ABG O2 Saturation ABG Base Excess POC ABG pCO2 ABG Hemoglobin ABG Oxyhemoglobin ABG Glucose Oxyhemoglobin Sodium Potassium Chloride Carbon Dioxide BUN Creatinine Glucose POC Glucose 130 H 126 H 150 H Lactic Acid Calcium Phosphorus Magnesium AST ALT Lactate Dehydrogenase CK-MB (CK-2) C-Reactive Protein NT-Pro-B Natriuret Pep Total Protein Albumin Arterial Blood Glucose Urine WBC (Auto) Urine Creatinine 01/29/20 01/29/20 01/29/20 04:55 06:00 12:28 WBC RBC Hgb Hct MCHC RDW MCV MCH Lymph % (Auto) [place] % (Auto) [place] # Eos # Lymph # (Auto) [place] # (Auto) Eos # (Auto) Seg Neutrophils % Seg Neuts % (Manual) Baso # (Auto) Lymphocytes % (Manual) Monocytes % (Manual) Eosinophils % (Manual) Basophils % (Manual) Seg Neutrophils # Seg Neutrophils # Man Lymphocytes # (Manual) Monocytes # (Manual) Eosinophils # (Manual) Nucleated RBC % Basophils # (Manual) PT INR APTT Heparin Anti-Xa Level ABG pH POC ABG pO2 ABG pO2 ABG HCO3 ABG O2 Saturation ABG Base Excess POC ABG pCO2 ABG Hemoglobin ABG Oxyhemoglobin ABG Glucose Oxyhemoglobin Sodium Potassium Chloride Carbon Dioxide 34 H BUN Creatinine 0.6 L Glucose 152 H POC Glucose 157 H 156 H Lactic Acid Calcium Phosphorus Magnesium AST ALT Lactate Dehydrogenase CK-MB (CK-2) C-Reactive Protein NT-Pro-B Natriuret Pep Total Protein Albumin Arterial Blood Glucose Urine WBC (Auto) Urine Creatinine 01/29/20 01/30/20 01/30/20 19:06 00:29 05:39 WBC RBC Hgb Hct MCHC RDW MCV MCH Lymph % (Auto) [place] % (Auto) [place] # Eos # Lymph # (Auto) [place] # (Auto) Eos # (Auto) Seg Neutrophils % Seg Neuts % (Manual) Baso # (Auto) Lymphocytes % (Manual) Monocytes % (Manual) Eosinophils % (Manual) Basophils % (Manual) Seg Neutrophils # Seg Neutrophils # Man Lymphocytes # (Manual) Monocytes # (Manual) Eosinophils # (Manual) Nucleated RBC % Basophils # (Manual) PT INR APTT Heparin Anti-Xa Level ABG pH POC ABG pO2 ABG pO2 ABG HCO3 ABG O2 Saturation ABG Base Excess POC ABG pCO2 ABG Hemoglobin ABG Oxyhemoglobin ABG Glucose Oxyhemoglobin Sodium Potassium Chloride Carbon Dioxide BUN Creatinine Glucose POC Glucose 152 H 132 H 159 H Lactic Acid Calcium Phosphorus Magnesium AST ALT Lactate Dehydrogenase CK-MB (CK-2) C-Reactive Protein NT-Pro-B Natriuret Pep Total Protein Albumin Arterial Blood Glucose Urine WBC (Auto) Urine Creatinine 01/30/20 01/30/20 01/30/20 12:27 17:42 23:28 WBC RBC Hgb Hct MCHC RDW MCV MCH Lymph % (Auto) [place] % (Auto) [place] # Eos # Lymph # (Auto) [place] # (Auto) Eos # (Auto) Seg Neutrophils % Seg Neuts % (Manual) Baso # (Auto) Lymphocytes % (Manual) Monocytes % (Manual) Eosinophils % (Manual) Basophils % (Manual) Seg Neutrophils # Seg Neutrophils # Man Lymphocytes # (Manual) Monocytes # (Manual) Eosinophils # (Manual) Nucleated RBC % Basophils # (Manual) PT INR APTT Heparin Anti-Xa Level ABG pH POC ABG pO2 ABG pO2 ABG HCO3 ABG O2 Saturation ABG Base Excess POC ABG pCO2 ABG Hemoglobin ABG Oxyhemoglobin ABG Glucose Oxyhemoglobin Sodium Potassium Chloride Carbon Dioxide BUN Creatinine Glucose POC Glucose 151 H 144 H 164 H Lactic Acid Calcium Phosphorus Magnesium AST ALT Lactate Dehydrogenase CK-MB (CK-2) C-Reactive Protein NT-Pro-B Natriuret Pep Total Protein Albumin Arterial Blood Glucose Urine WBC (Auto) Urine Creatinine 01/31/20 01/31/20 01/31/20 05:51 11:51 18:06 WBC RBC Hgb Hct MCHC RDW MCV MCH Lymph % (Auto) [place] % (Auto) [place] # Eos # Lymph # (Auto) [place] # (Auto) Eos # (Auto) Seg Neutrophils % Seg Neuts % (Manual) Baso # (Auto) Lymphocytes % (Manual) Monocytes % (Manual) Eosinophils % (Manual) Basophils % (Manual) Seg Neutrophils # Seg Neutrophils # Man Lymphocytes # (Manual) Monocytes # (Manual) Eosinophils # (Manual) Nucleated RBC % Basophils # (Manual) PT INR APTT Heparin Anti-Xa Level ABG pH POC ABG pO2 ABG pO2 ABG HCO3 ABG O2 Saturation ABG Base Excess POC ABG pCO2 ABG Hemoglobin ABG Oxyhemoglobin ABG Glucose Oxyhemoglobin Sodium Potassium Chloride Carbon Dioxide BUN Creatinine Glucose POC Glucose 131 H 167 H 210 H Lactic Acid Calcium Phosphorus Magnesium AST ALT Lactate Dehydrogenase CK-MB (CK-2) C-Reactive Protein NT-Pro-B Natriuret Pep Total Protein Albumin Arterial Blood Glucose Urine WBC (Auto) Urine Creatinine 01/31/20 01/31/20 02/01/20 19:24 Unknown 00:34 WBC RBC Hgb Hct MCHC RDW MCV MCH Lymph % (Auto) [place] % (Auto) [place] # Eos # Lymph # (Auto) [place] # (Auto) Eos # (Auto) Seg Neutrophils % Seg Neuts % (Manual) Baso # (Auto) Lymphocytes % (Manual) Monocytes % (Manual) Eosinophils % (Manual) Basophils % (Manual) Seg Neutrophils # Seg Neutrophils # Man Lymphocytes # (Manual) Monocytes # (Manual) Eosinophils # (Manual) Nucleated RBC % Basophils # (Manual) PT INR APTT Heparin Anti-Xa Level ABG pH POC ABG pO2 ABG pO2 ABG HCO3 ABG O2 Saturation ABG Base Excess POC ABG pCO2 ABG Hemoglobin ABG Oxyhemoglobin ABG Glucose Oxyhemoglobin Sodium Potassium Chloride 95.3 L Carbon Dioxide 33 H BUN 36 H Creatinine Glucose 187 H POC Glucose 116 H Lactic Acid Calcium Phosphorus Magnesium AST ALT Lactate Dehydrogenase CK-MB (CK-2) C-Reactive Protein NT-Pro-B Natriuret Pep Total Protein Albumin Arterial Blood Glucose Urine WBC (Auto) Urine Creatinine 57.4 H 02/01/20 02/01/20 05:24 12:29 WBC RBC Hgb Hct MCHC RDW MCV MCH Lymph % (Auto) [place] % (Auto) [place] # Eos # Lymph # (Auto) [place] # (Auto) Eos # (Auto) Seg Neutrophils % Seg Neuts % (Manual) Baso # (Auto) Lymphocytes % (Manual) Monocytes % (Manual) Eosinophils % (Manual) Basophils % (Manual) Seg Neutrophils # Seg Neutrophils # Man Lymphocytes # (Manual) Monocytes # (Manual) Eosinophils # (Manual) Nucleated RBC % Basophils # (Manual) PT INR APTT Heparin Anti-Xa Level ABG pH POC ABG pO2 ABG pO2 ABG HCO3 ABG O2 Saturation ABG Base Excess POC ABG pCO2 ABG Hemoglobin ABG Oxyhemoglobin ABG Glucose Oxyhemoglobin Sodium Potassium Chloride Carbon Dioxide BUN Creatinine Glucose POC Glucose 142 H 151 H Lactic Acid Calcium Phosphorus Magnesium AST ALT Lactate Dehydrogenase CK-MB (CK-2) C-Reactive Protein NT-Pro-B Natriuret Pep Total Protein Albumin Arterial Blood Glucose Urine WBC (Auto) Urine Creatinine Chest x-ray: image reviewed (slight improvement in bilateral infiltrates) Allied health notes reviewed: nursing
[2020-02-01] MEDS ORDERED: MINERAL OIL/PETROLATUM, WHITE OPHTH OINT 3.5 GM OU PRN (15:52)
[2020-02-01] MEDS ORDERED: fentaNYL 100 MCG/2 ML INJ IV PRN (15:52)
[2020-02-01] MEDS: fentaNYL DRIP Premix 2,000 MCG/100 ML BAG IV SCH ×2 (16:00→21:57)
--- NOTE | 2020-02-01 19:24 | Progress Note ---
Assessment and Plan -Ischemic cardiomyopathy Cardiology is following, status post cardiac catheterization on 01/22/2020; Coronary artery disease status post PCI and stent to the LAD Continue current cardiac medications --Acute on chronic hypoxemic respiratory failure; Patient has tracheostomy on vent Continue nebulizers, , trach care Wean off ventilator as tolerated Pulmonary critical following --Acute exacerbation of COPD; Patient is currently on ventilatory support Continue nebulizers --Left lower lobe PE; Continue Eliquis, ventilatory support --Acute right lower extremity DVT; Patient is on Eliquis --Bilateral multifocal pneumonia/community-acquired Completed antibiotics, improved --Severe sepsis/bilateral pneumonia: Completed antibiotics COVID-19 test; 11/24/2019; negative 11/26/2019; negative 12/29/2019: Negative --Paroxysmal atrial fibrillation; Now rate controlled, Stable on amiodarone and Eliquis --Acute on chronic combined systolic and diastolic congestive heart failure Ischemic cardiomyopathy left ventricular ejection fraction 40 to 45% --H/o CAD [[facility] 12/2018 in-stent restenosis] Patient is stable on current cardiac medications Patient is a 64-year-old male with known history of hypertension, COPD, history of coronary artery disease, CHF with ejection fraction of 20 to 25% in August 2018 presenting to the emergency room via EMS complaining of shortness of breath. Patient was found to be hypoxic and in respiratory distress. Patient was placed on CPAP in route to the hospital. Patient remained hypoxic on CPAP BiPAP ,sub sequently was intubated. Work-up in the emergency room including chest x-ray reveals bilateral pneumonia. He had an elevated white count of 14 and also had an elevated BNP. sputum cultures positive for Pseudomonas, ID treated with cefepime and Vanco. His hospital course became complicated with acute PE, DVT, paroxysmal atrial fib - placed on chronic anticoagulation. Patient was difficult to wean off, status post trach and PEG, remains on mechanical ventilation with trach tube. He then developed partial small bowel obstruction valuated by general surgeon symptom improved with medical Mx, patient was briefly weaned off ventilatory support however, was in respiratory failure requiring full ventilatory support. Cardiac catheterization on 01/22/2020. No new issues overnight. --Hypertensive emergency; present on admission Reasonable blood pressures, continue current antihypertensives As needed medications Most stents were patent. --History of alcohol abuse/alcohol withdrawal; Was on CIWA protocol, now stable --Oropharyngeal dysphagia; status post PEG placement Continue PEG feeds per protocol --History of partial small bowel obstruction; resolved Surgery evaluated. At present not a surgical candidate. --Obesity; BMI 34.7 Patient needs weight reduction when medically stable --Severe protein calorie malnutrition/hypoalbuminemia Nutrition supplements, dietitian following, PEG feeds --DVT prophylaxis;Eliquis --Full CODE STATUS 01/05; Pt stable. NGT output 650cc over 24 hours, bilious. No f/c, WBC within normal limits. cont NG suction and cont to hold TF 01/06: Abs series - mild improvement in small bowel distension in mid abdomen, normal gas/stool pattern in colon. NGT in duodenum. Continue to hold tube feeding, maintain NG tube with low intermittent suction. Patient's was updated by phone. Continue to provide supportive care and monitor clinically. 01/07: +BMs today and NGT/PEG output appears more gastric today. Plan to clamp NGT, if tolerates start TF from tomorrow. cont supportive care. 01/08; Gastric output decreased over last 24 hours. NGT has been clamped x 24 hours. plan to dc NGT and to start TTF via PEG - vital HF @10cc/hr 01/09: clinically stable, tolerating TF. monitor BMP, wean off from vent as tolerated clinically stable, on TF. wean off vent as tolerated 01/11: wean off from vent, cont to monitor, on TF 01/12: wean off from vent, cont to monitor, on TF. need placement - unfunded 01/13; remains on ventilatory support, unable to wean, DC planning possible LTAC, unfunded 01/14; patient of ventilatory support, T-piece tracheostomy on oxygen, LTAC placement per case management 01/16; tracheostomy, patient on full ventilatory support, wean off vent support as tolerated, pending LTAC placement, social financial issues 01/17; awaiting LTAC placement, insurance and financial issues 01/18; patient tracheostomy remains on ventilatory support 01/19; wean off ventilator as tolerated 01/20; remains on ventilatory support, patient complains of intermittent chest pain, cardiology recommend left heart catheterization tomorrow 01/22/2020. Patient for left heart catheterization per cardiology. Patient remains on AC mode ventilation rate 12, tidal volume 450, FiO2 30% and PEEP of 6. Continue tracheostomy care, airway management and secretion control. 01/23/2020. Cardiac catheterization completed yesterday revealed widely patent previous LAD stent with mild nonobstructive atherosclerosis of the right mid coronary artery and rest of the coronary system was without significant atherosclerosis. The left ventricle ejection fraction was mildly impaired at 40 to 45%. There was some hypokinesis of the basal inferior wall suggestive of previous or recent infarct. Continue GDMT for coronary artery disease including beta blockers, topical nitrates, statin and Plavix. Continue Eliquis for paroxysmal atrial fibrillation and PE. Continue diuresis with Lasix and follow electrolytes closely. Continue Robinul and scopolamine for secretion control and daily SBT per pulmonary. Also, continue bronchodilators and routine trach care/airway management. T-piece trials per pulmonary as tolerated. 01/24/2020. Recent cardiac catheterization has documented widely patent left anterior descending artery stent with minimal nonobstructive diffuse coronary artery disease in the rest of the coronary arteries. Evidence of ischemic c ardiomyopathy with inferior wall hypokinesis. Continue with guideline directed medical therapy. Continue Robinul and scopolamine for secretion control and daily SBT per pulmonary. Continue bronchodilators and routine trach care/airway management. T-piece trials per pulmonary as tolerated. 01/25/2020. Continue with guideline directed medical therapy for systolic heart failure. Cardiac catheterization revealed evidence of ischemic cardiomyopathy with inferior wall hypokinesis (EF 40-45%). Patient currently on T-piece with oxygen 10 L/min FiO2 40%. Continue Robinul and scopolamine for secretion control. Continue bronchodilators and routine trach care/airway management. 01/26/2020;Continue with guideline directed medical therapy for systolic heart failure. Cardiac catheterization revealed evidence of ischemic cardiomyopathy with inferior wall hypokinesis (EF 40-45%). Patient currently on T-piece with oxygen 10 L/min FiO2 40%. Continue Robinul and scopolamine for secretion cont rol. Continue bronchodilators and routine trach care/airway management. 01/27/2020Continue with guideline directed medical therapy for systolic heart failure. Cardiac catheterization revealed evidence of ischemic cardiomyopathy with inferior wall hypokinesis (EF 40-45%). Patient currently on T-piece with oxygen 10 L/min FiO2 40%. Continue Robinul and scopolamine for secretion control. Continue bronchodilators and routine trach care/airway management. 01/28/2020Continue with guideline directed medical therapy for systolic heart failure. Cardiac catheterization revealed evidence of ischemic cardiomyopathy with inferior wall hypokinesis (EF 40-45%). Patient currently on T-piece with oxygen 10 L/min FiO2 40%. Continue Robinul and scopolamine for secretion control. Continue bronchodilators and routine trach care/airway management. 01/29/2020 Continue with guideline directed medical therapy for systolic heart failure. Cardiac catheterization revealed evidence of ischemic cardiomyopathy with inferior wall hypokinesis (EF 40-45%). Patient currently on T-piece with oxygen 10 L/min FiO2 40%. Continue Robinul and scopolamine for secretion control. Continue bronchodilators and routine trach care/airway management. 01/30/2020 Continue with guideline directed medical therapy for systolic heart failure. Cardiac catheterization revealed evidence of ischemic cardiomyopathy with inferior wall hypokinesis (EF 40-45%). Patient currently on T-piece with oxygen 10 L/min FiO2 40%. Continue Robinul and scopolamine for secretion control. Continue bronchodilators and routine trach care/airway management. Patient has recurrent A. fib and currently on amiodarone, continue beta-hebert, and Eliquis. Patient is on IV diuresis January 31, 2020. Patient resting comfortably. Catheterization with inferior wall hypokinesis ejection fraction 40 to 45%. Was unable to wean tracheostomy at this time. Failed T-piece trial initially. Secretions improved with addition of Robinul. Pulmonology for trach care and airway management and continue to wean. Atrial fibrillation rate well controlled at 81. Currently on amiodarone beta- hebert and anticoagulation with Eliquis. CHF continue present diuresis. February 01, 2020. Patient resting comfortably. No new concerns at this time patient is anticipating discharge. Still failed T-piece trial at this time again. Patient secretions have improved with Robinul all. Atrial fibrillation heart rate 70s to 80s. Well-controlled current anticoagulation Congestive heart failure compensated at this particular time. Subjective Date of service: 02/01/20 Principal diagnosis: Ac hypoxemic resp failure; Pneumonia; PUI COVID-19; CHF; COPD; HTN Interval history: Patient resting comfortably in bed. Tracheostomy. Current T-piece trial. No new events overnight. Patient states he is ready to go. Is alert. Able to mouth that to me. Patient however in fact has nowhere to go. Has been unable to wean. He failed the T-piece trial. We will need to await further recommendations by pulmonology. Patient's pain is controlled. Objective - Constitutional Vitals: Vital Signs - 12hr 02/01/20 02/01/20 02/01/20 08:00 08:01 08:10 Temperature 97.4 F L Pulse Rate 118 H 120 H 113 H Pulse Rate [ 120 H From Monitor] Respiratory 25 H 25 H Rate Blood Pressure 110/81 110/81 O2 Sat by Pulse 98 98 99 Oximetry O2 Sat by Pulse 99 Oximetry [ Assessment] 02/01/20 02/01/20 02/01/20 08:20 09:00 10:00 Temperature Pulse Rate 116 H 121 H 124 H Pulse Rate [ From Monitor] Respiratory 20 21 26 H Rate Blood Pressure 109/72 109/72 109/78 O2 Sat by Pulse 98 98 99 Oximetry O2 Sat by Pulse Oximetry [ Assessment] 02/01/20 02/01/20 02/01/20 11:00 12:00 13:00 Temperature 97.4 F L Pulse Rate 122 H 125 H 124 H Pulse Rate [ 126 H From Monitor] Respiratory 24 22 21 Rate Blood Pressure 121/84 122/82 109/72 O2 Sat by Pulse 98 99 100 Oximetry O2 Sat by Pulse Oximetry [ Assessment] 02/01/20 02/01/20 02/01/20 13:12 14:00 15:00 Temperature Pulse Rate 121 H 125 H 120 H Pulse Rate [ From Monitor] Respiratory 25 H 28 H Rate Blood Pressure 109/72 115/89 110/80 O2 Sat by Pulse 90 99 Oximetry O2 Sat by Pulse Oximetry [ Assessment] 02/01/20 02/01/20 02/01/20 16:00 16:01 17:00 Temperature 97.4 F L Pulse Rate 125 H 126 H 119 H Pulse Rate [ 126 H From Monitor] Respiratory 27 H 27 H 28 H Rate Blood Pressure 104/86 108/78 O2 Sat by Pulse 99 98 Oximetry O2 Sat by Pulse Oximetry [ Assessment] 02/01/20 02/01/20 17:10 18:00 Temperature Pulse Rate 117 H 128 H Pulse Rate [ From Monitor] Respiratory 30 H Rate Blood Pressure 108/78 119/87 O2 Sat by Pulse 99 98 Oximetry O2 Sat by Pulse 99 Oximetry [ Assessment] General appearance: Present: no acute distress, well-nourished - EENT ENT: hearing intact, clear oral mucosa - Neck Neck: supple, normal ROM - Respiratory Respiratory effort: normal Respiratory: right: diminished (Tracheostomy) - Cardiovascular Rhythm: regular Heart Sounds: Present: S1 & S2. Absent: gallop, rub Extremities: Full ROM Extremity abnormal: edema - Gastrointestinal General gastrointestinal: Present: soft, non-tender, non-distended, normal bowel sounds - Musculoskeletal Musculoskeletal: generalized weakness - Neurologic Neurologic: no CNII-XII intact, no focal deficits, moves all extremities - Labs CBC & Chem 7: 01/28/20 04:37 01/31/20 19:24 Labs: Abnormal lab results 01/31/20 02/01/20 02/01/20 Range/Units 19:24 00:34 05:24 Chloride 95.3 L (98-107) mmol/L Carbon Dioxide 33 H (22-30) mmol/L BUN 36 H (9-20) mg/dL Glucose 187 H (75-100) mg/dL POC Glucose 116 H 142 H (70-105) mg/dL 02/01/20 02/01/20 Range/Units 12:29 17:16 Chloride (98-107) mmol/L Carbon Dioxide (22-30) mmol/L BUN (9-20) mg/dL Glucose (75-100) mg/dL POC Glucose 151 H 137 H (70-105) mg/dL - Imaging and cardiology Chest x-ray: report reviewed, image reviewed HEART Score - HEART Score Troponin: Troponin T < 0.010 ng/mL (0.00-0.029) 01/19/20 01:35
[2020-02-01] MEDS: TAMSULOSIN 0.4 MG CAP PO SCH (21:41)
[2020-02-01] MEDS: POLYETHYLENE GLYCOL 3350 17 GM POWDER PO SCH (21:44)
[2020-02-02] MEDS: METOPROLOL TARTRATE 25 MG TAB PO SCH ×4 (01:25→18:26)
[2020-02-02] MEDS: FUROSEMIDE 20 MG TAB PO SCH (05:19)
[2020-02-02] MEDS: INSULIN REGULAR, HUMAN 100 UNIT/ML 3ML VIAL SUB-Q SCH ×5 (06:24→23:46)
[2020-02-02] MEDS: GLYCOPYRROLATE 2 MG TAB PO SCH ×3 (08:36→22:05)
[2020-02-02] MEDS: MIDODRINE 5 MG TAB PO SCH ×3 (08:36→18:21)
[2020-02-02] MEDS: APIXABAN 5 MG TAB PO SCH ×2 (09:01→21:47)
[2020-02-02] MEDS: CLOPIDOGREL 75 MG TAB PO SCH (09:01)
[2020-02-02] MEDS: FAMOTIDINE 20 MG TAB PO SCH ×2 (09:01→21:47)
[2020-02-02] MEDS: QUEtiapine 100 MG TAB PO SCH ×2 (09:01→21:47)
[2020-02-02] MEDS: AMIODARONE 200 MG TAB PO SCH ×2 (09:01→21:48)
[2020-02-02] MEDS: ACETAMINOPHEN 325 MG/10.15 ML ORAL LIQD UNIT DOSE FEEDTUBE PRN (09:13)
[2020-02-02 10:34] LABS: Alanine Aminotransferase 457 units/L (7-56); BUN/Creatinine Ratio 40; Blood Urea Nitrogen 44 mg/dL (9-20); Calcium 9.2 mg/dL (8.4-10.2); Hemolysis Index 7
[2020-02-02] MEDS: ONDANSETRON 4 MG/2 ML INJ IV PRN (10:52)
--- NOTE | 2020-02-02 11:44 | Progress Note ---
Assessment and Plan Chest pain, resolved LHC done 01/22/20 widely patent previous LAD stent. We found mild nonobstructive atherosclerosis of the mid right coronary artery. Otherwise the rest of the coronary system was without significant atherosclerosis. LVEF 40 to 45%. There was some hypokinesis of the basal inferior wall suggestive of previous or recent infarct. ECG done 01/19/20 shows sinus rhythm with low voltage QRS and subtle ST segment elevations in the inferolateral leads that suggested possible concern for an acute injury at that time. Atrial fibrillation, paroxysmal on amiodarone and metoprolol Ischemic Cardiomyopathy re-echo this presentation reports an LVEF 40-45%. Hx of CAD Multifocal pneumonia negative COVID-19 test x 3 Chronic Respiratory failure s/p trach History of COPD Acute PE/DVT -on Eliquis Anemia Partial SBO vs ileus Recommend: Continue guideline directed medical therapy for coronary artery disease and atri al fibrillation. Otherwise, conservative cardiac management. Subjective Date of service: 02/02/20 Principal diagnosis: Ac hypoxemic resp failure; Pneumonia; PUI COVID-19; CHF; COPD; HTN Interval history: Patient is resting in bed comfortably. Objective Vital Signs Temp Pulse Pulse Resp BP Pulse Ox Pulse Ox 02/02/20 11:33 119 H 111/73 100 02/02/20 08:40 124 H 139/103 02/02/20 08:08 96 02/02/20 08:04 96 02/02/20 08:00 100.2 F H 02/02/20 07:58 84 02/02/20 07:00 122 H 12 114/81 02/02/20 06:00 123 H 14 117/88 02/02/20 05:00 122 H 12 113/81 02/02/20 04:48 122 H 108/90 92 92 02/02/20 04:00 99.1 F 120 H 122 H 12 106/85 86 02/02/20 03:00 119 H 12 110/85 02/02/20 02:00 117 H 14 106/78 02/02/20 01:25 120 H 113/81 02/02/20 01:00 119 H 16 106/78 91 02/02/20 00:25 120 H 119/74 100 02/02/20 00:00 98.6 F 120 H 115 H 14 119/74 99 02/01/20 23:01 123 H 20 132/101 02/01/20 23:00 128 H 21 132/101 02/01/20 22:00 121 H 25 H 125/92 88 02/01/20 21:44 121 H 115/85 02/01/20 21:00 120 H 24 112/85 02/01/20 20:31 120 H 101/83 100 02/01/20 20:00 98.8 F 115 H 121 H 20 100/76 100 02/01/20 19:00 117 H 38 H 111/74 99 02/01/20 18:00 128 H 30 H 119/87 98 02/01/20 17:10 117 H 108/78 99 99 02/01/20 17:00 119 H 28 H 108/78 98 02/01/20 16:01 126 H 27 H 104/86 02/01/20 16:00 97.4 F L 125 H 126 H 27 H 99 02/01/20 15:00 120 H 28 H 110/80 99 02/01/20 14:00 125 H 25 H 115/89 90 02/01/20 13:12 121 H 109/72 02/01/20 13:00 124 H 21 109/72 100 02/01/20 12:00 97.4 F L 125 H 126 H 22 122/82 99 - Physical Examination General: Other (awake, s/p trach) HEENT: Positive: PERRL Cardiac: Positive: irregularly irregular Extremities: Absent: edema - Labs and Meds Cardiac Enzymes 02/02/20 Range/Units 10:01 AST 363 H (5-40) units/L Comprehensive Metabolic Panel 02/02/20 Range/Units 10:01 Sodium 137 (137-145) mmol/L Potassium 3.6 (3.6-5.0) mmol/L Chloride 95.3 L (98-107) mmol/L Carbon Dioxide 30 (22-30) mmol/L BUN 44 H (9-20) mg/dL Creatinine 1.1 (0.8-1.3) mg/dL Glucose 234 H (75-100) mg/dL Calcium 9.2 (8.4-10.2) mg/dL AST 363 H (5-40) units/L ALT 457 H (7-56) units/L Alkaline Phosphatase 105 (35-129) units/L Total Protein 6.8 (6.3-8.2) g/dL Albumin 3.0 L (3.9-5) g/dL - Allied health notes Allied health notes reviewed: nursing
[2020-02-02] MEDS: fentaNYL DRIP Premix 2,000 MCG/100 ML BAG IV SCH ×2 (13:08→22:10)
--- NOTE | 2020-02-02 13:10 | Progress Note ---
Assessment and Plan Acute hypoxemic respiratory failure Bilateral pneumonia, community acquired. Acute LLL branch P.E. Acute DVT Person under investigation for COVID-19 infection. Acute congestive heart failure exacerbation. History of cerebrovascular accident. Acute chronic obstructive pulmonary disease exacerbation. Hypertension and hypertensive urgency at presentation. History of arthritis. Leukocytosis. Lactic acidosis. Oropharyngeal dysphagia (Suspecty IVVD at this point) - place NGT to LIS - NPO for now - KUB with non specific bowel gas pattern - begin regaln 5mg IV q6h - continue low dose diuresis while following hemodynamic's - get US chest +/- thoracentesis - continue care as below otherwise; - Midodrine for BP support during diuresis - target even to slightly negative fluid balance - continue daytime T-piece trials (switch to PSV if fails) and advance RTC as tolerated - continue mucomyst nebs re: secretions - continue full anticoagulation with Apixaban - continue daily SAT's and SBT assessment as tolerated - continue seroquel for anxiolysis / delirium - COVID isolation per facility protocol - prn diuresis while following electrolytes / I's & O's - continue to wean oxygen for O2 sat's > 92% - continue bronchodilators with routine trach care and pulmonary hygiene per RT - continue Robinul & Scopolamine for secretion control - VAP bundle addressed (Aspiration precautions, HOB >40) - continue to wean per pulmonary driven protocols - sedation target is RASS 0 to -1 - continue prn analgesia per CPOT score - follow clinically re: fever curves / trend WBC - Avoid delirium (no benzodiazepines if they can be avoided) - Maintain sleep-wake cycle - enteral nutrition at goal rate as tolerated - continue accucheck's with glycemic control per SSI for target blood glucose goal of 140-180 mg/dL while critically ill; Avoid hypoglycemia - for VTE he is on IV Heparin - continue stress ulcer prophylaxis with Famotidine - continue mobility protocols for pressure ulcer prophylaxis - continue fall precautions - continue wound care management per RN / WCT - Supportive transfusions to keep HgB>7g/dL - CXR's and ABG's prn - Continue to monitor neurologic function - Continue chronic home medications - Continue all supportive care ........ re-evaluate in am & prn CONDITION: CRITICAL PROGNOSIS: GUARDED CODE STATUS: FULL CODE The high probability of a clinically significant, sudden or life threatening deterioration of the [Respiratory, cardiovascular & neurological] system(s) required my full and direct attention, intervention and personal management. The aggregate critical care time was [35] minutes without overlap. Time includes spent on [x] Data Review and interpretation [x] Patient assessment and monitoring of vital signs [x] Documentation [x] Medication orders and management Subjective Date of service: 02/02/20 Principal diagnosis: Ac hypoxemic resp failure; Pneumonia; PUI COVID-19; CHF; COPD; HTN Interval history: Patient is seen today for: Acute hypoxemic respiratory failure; [place]. Pneumonia (CAP); PUI COVID-19 infection; AE-CHF; AE-COPD; H/O CVA; HTN Seen and examined at bedside; 24 hour events reviewed; nursing and respiratory care staff consulted; no adverse overnight events reported to me; resting peacefully in bed; + multiple episodes of emesis this morning; denies abdominal pain; on full MVS and weaning on hold Objective Vital Signs - 12hr 02/02/20 02/02/20 02/02/20 01:25 02:00 03:00 Temperature Pulse Rate 120 H 117 H 119 H Pulse Rate [ From Monitor] Respiratory 14 12 Rate Blood Pressure 113/81 106/78 110/85 O2 Sat by Pulse Oximetry O2 Sat by Pulse Oximetry [ Assessment] 02/02/20 02/02/20 02/02/20 04:00 04:48 05:00 Temperature 99.1 F Pulse Rate 120 H 122 H 122 H Pulse Rate [ 122 H From Monitor] Respiratory 12 12 Rate Blood Pressure 106/85 108/90 113/81 O2 Sat by Pulse 86 92 Oximetry O2 Sat by Pulse 92 Oximetry [ Assessment] 02/02/20 02/02/20 02/02/20 06:00 07:00 07:58 Temperature Pulse Rate 123 H 122 H Pulse Rate [ From Monitor] Respiratory 14 12 Rate Blood Pressure 117/88 114/81 O2 Sat by Pulse 84 Oximetry O2 Sat by Pulse Oximetry [ Assessment] 02/02/20 02/02/20 02/02/20 08:00 08:04 08:08 Temperature 100.2 F H Pulse Rate 123 H Pulse Rate [ From Monitor] Respiratory 25 H Rate Blood Pressure 139/100 O2 Sat by Pulse 96 Oximetry O2 Sat by Pulse 96 Oximetry [ Assessment] 02/02/20 02/02/20 02/02/20 08:40 09:00 10:00 Temperature Pulse Rate 124 H 122 H 119 H Pulse Rate [ From Monitor] Respiratory 25 H 22 Rate Blood Pressure 139/103 129/99 118/71 O2 Sat by Pulse 91 93 Oximetry O2 Sat by Pulse Oximetry [ Assessment] 02/02/20 02/02/20 02/02/20 11:00 11:33 12:00 Temperature 98.4 F Pulse Rate 119 H 119 H 122 H Pulse Rate [ From Monitor] Respiratory 25 H 21 Rate Blood Pressure 115/92 111/73 126/98 O2 Sat by Pulse 81 L 100 Oximetry O2 Sat by Pulse Oximetry [ Assessment] Constitutional: appears uncomfortable, other (elelelderly and obese male, normocephalic with mildly increased respiratory effort at rest) Eyes: non-icteric ENT: oropharynx moist, other (+ midline tracheostomy) Neck: supple, no JVD Effort: mildly labored Ascultation: Bilateral: diminished breath sounds, rhonchi, other (+ secretions) Percussion: Bilateral: not dull Cardiovascular: irregular rhythm, other (flow murmur) Gastrointestinal: normoactive bowel sounds, soft, non-tender, non-distended (protuberant), other (protuberant; PEG in place) Integumentary: normal Extremities: no cyanosis, pulses normal, no ischemia or petechiae, edema (bilateral upper ) Neurologic: non-focal exam (moves extremities), pupils equal and round, CN II- XII normal, motor strength normal and (moves all extremities) Psychiatric: mood appropriate, anxious CBC and BMP: 01/28/20 04:37 02/02/20 10:01 ABG, PT/INR, D-dimer: ABG ABG pH 7.447 pH Units (7.350-7.450) 01/25/20 21:02 POC ABG pCO2 45.6 mmHg (32.0-48.0) 01/12/20 13:58 ABG pCO2 47.0 mm Hg 01/25/20 21:02 POC ABG pO2 76.6 mmHg (83-108) L 01/12/20 13:58 ABG pO2 57.5 mm Hg (80.0-90.0) L 01/25/20 21:02 POC ABG HCO3 31.2 01/12/20 13:58 ABG O2 Saturation 90.3 % (95.0-99.0) L 01/25/20 21:02 PT/INR, D-dimer PT 16.9 Sec. (12.2-14.9) H 01/22/20 09:58 INR 1.34 (0.87-1.13) H 01/22/20 09:58 Abnormal lab findings: Abnormal Labs 11/24/19 11/24/19 11/24/19 02:53 02:53 03:45 WBC 14.3 H RBC Hgb Hct MCHC RDW 17.2 H MCV MCH Lymph % (Auto) [place] % (Auto) [place] # Eos # Lymph # (Auto) [place] # (Auto) Eos # (Auto) Seg Neutrophils % Seg Neuts % (Manual) Baso # (Auto) Lymphocytes % (Manual) Monocytes % (Manual) Eosinophils % (Manual) Basophils % (Manual) Seg Neutrophils # Seg Neutrophils # Man 8.3 H Lymphocytes # (Manual) Monocytes # (Manual) 0.9 H Eosinophils # (Manual) Nucleated RBC % Basophils # (Manual) PT INR APTT Heparin Anti-Xa Level ABG pH 7.313 L POC ABG pO2 ABG pO2 102.8 H ABG HCO3 ABG O2 Saturation ABG Base Excess -2.9 L POC ABG pCO2 ABG Hemoglobin ABG Oxyhemoglobin ABG Glucose Oxyhemoglobin 93.9 L Sodium Potassium Chloride Carbon Dioxide BUN Creatinine Glucose 195 H POC Glucose Lactic Acid Calcium Phosphorus Magnesium AST ALT Lactate Dehydrogenase CK-MB (CK-2) 4.3 H C-Reactive Protein NT-Pro-B Natriuret Pep 1181 H Total Protein Albumin Arterial Blood Glucose Urine WBC (Auto) Urine Creatinine 11/24/19 11/24/19 11/24/19 04:53 04:53 10:37 WBC RBC Hgb Hct MCHC RDW MCV MCH Lymph % (Auto) [place] % (Auto) [place] # Eos # Lymph # (Auto) [place] # (Auto) Eos # (Auto) Seg Neutrophils % Seg Neuts % (Manual) Baso # (Auto) Lymphocytes % (Manual) Monocytes % (Manual) Eosinophils % (Manual) Basophils % (Manual) Seg Neutrophils # Seg Neutrophils # Man Lymphocytes # (Manual) Monocytes # (Manual) Eosinophils # (Manual) Nucleated RBC % Basophils # (Manual) PT INR APTT Heparin Anti-Xa Level ABG pH POC ABG pO2 ABG pO2 ABG HCO3 ABG O2 Saturation ABG Base Excess POC ABG pCO2 ABG Hemoglobin ABG Oxyhemoglobin ABG Glucose Oxyhemoglobin Sodium Potassium Chloride Carbon Dioxide BUN Creatinine Glucose 162 H POC Glucose Lactic Acid 2.40 H* 2.50 H* Calcium Phosphorus Magnesium AST ALT Lactate Dehydrogenase 240 H CK-MB (CK-2) C-Reactive Protein NT-Pro-B Natriuret Pep Total Protein Albumin Arterial Blood Glucose Urine WBC (Auto) Urine Creatinine 11/24/19 11/24/19 11/24/19 12:21 14:50 19:54 WBC RBC Hgb Hct MCHC RDW MCV MCH Lymph % (Auto) [place] % (Auto) [place] # Eos # Lymph # (Auto) [place] # (Auto) Eos # (Auto) Seg Neutrophils % Seg Neuts % (Manual) Baso # (Auto) Lymphocytes % (Manual) Monocytes % (Manual) Eosinophils % (Manual) Basophils % (Manual) Seg Neutrophils # Seg Neutrophils # Man Lymphocytes # (Manual) Monocytes # (Manual) Eosinophils # (Manual) Nucleated RBC % Basophils # (Manual) PT INR APTT Heparin Anti-Xa Level ABG pH POC ABG pO2 ABG pO2 ABG HCO3 ABG O2 Saturation ABG Base Excess POC ABG pCO2 ABG Hemoglobin ABG Oxyhemoglobin ABG Glucose Oxyhemoglobin Sodium Potassium Chloride Carbon Dioxide BUN Creatinine Glucose POC Glucose 145 H 143 H 124 H Lactic Acid Calcium Phosphorus Magnesium AST ALT Lactate Dehydrogenase CK-MB (CK-2) C-Reactive Protein NT-Pro-B Natriuret Pep Total Protein Albumin Arterial Blood Glucose Urine WBC (Auto) Urine Creatinine 11/25/19 11/25/19 11/25/19 00:18 03:18 05:11 WBC 13.7 H RBC Hgb Hct MCHC RDW 17.1 H MCV MCH Lymph % (Auto) 10.8 L [place] % (Auto) 8.7 H [place] # 1.2 H Eos # Lymph # (Auto) [place] # (Auto) Eos # (Auto) Seg Neutrophils % 80.2 H Seg Neuts % (Manual) Baso # (Auto) Lymphocytes % (Manual) Monocytes % (Manual) Eosinophils % (Manual) Basophils % (Manual) Seg Neutrophils # 11.0 H Seg Neutrophils # Man Lymphocytes # (Manual) Monocytes # (Manual) Eosinophils # (Manual) Nucleated RBC % Basophils # (Manual) PT INR APTT Heparin Anti-Xa Level ABG pH 7.333 L POC ABG pO2 ABG pO2 61.2 L ABG HCO3 ABG O2 Saturation 90.2 L ABG Base Excess POC ABG pCO2 ABG Hemoglobin 13.7 L ABG Oxyhemoglobin ABG Glucose Oxyhemoglobin 88.2 L Sodium Potassium Chloride Carbon Dioxide BUN Creatinine Glucose POC Glucose 109 H Lactic Acid Calcium Phosphorus Magnesium AST ALT Lactate Dehydrogenase CK-MB (CK-2) C-Reactive Protein NT-Pro-B Natriuret Pep Total Protein Albumin Arterial Blood Glucose Urine WBC (Auto) Urine Creatinine 11/25/19 11/25/19 11/26/19 05:11 11:40 03:12 WBC RBC Hgb Hct MCHC RDW MCV MCH Lymph % (Auto) [place] % (Auto) [place] # Eos # Lymph # (Auto) [place] # (Auto) Eos # (Auto) Seg Neutrophils % Seg Neuts % (Manual) Baso # (Auto) Lymphocytes % (Manual) Monocytes % (Manual) Eosinophils % (Manual) Basophils % (Manual) Seg Neutrophils # Seg Neutrophils # Man Lymphocytes # (Manual) Monocytes # (Manual) Eosinophils # (Manual) Nucleated RBC % Basophils # (Manual) PT INR APTT Heparin Anti-Xa Level ABG pH POC ABG pO2 ABG pO2 155.1 H ABG HCO3 27.8 H ABG O2 Saturation ABG Base Excess POC ABG pCO2 ABG Hemoglobin 12.2 L ABG Oxyhemoglobin ABG Glucose Oxyhemoglobin Sodium Potassium Chloride Carbon Dioxide BUN 23 H Creatinine Glucose 110 H POC Glucose 108 H Lactic Acid Calcium Phosphorus Magnesium AST ALT Lactate Dehydrogenase CK-MB (CK-2) C-Reactive Protein NT-Pro-B Natriuret Pep Total Protein Albumin Arterial Blood Glucose Urine WBC (Auto) Urine Creatinine 11/26/19 11/26/19 11/26/19 06:17 10:43 10:43 WBC 11.4 H RBC Hgb Hct MCHC RDW 17.1 H MCV MCH Lymph % (Auto) [place] % (Auto) [place] # Eos # Lymph # (Auto) [place] # (Auto) Eos # (Auto) Seg Neutrophils % Seg Neuts % (Manual) Baso # (Auto) Lymphocytes % (Manual) Monocytes % (Manual) Eosinophils % (Manual) Basophils % (Manual) Seg Neutrophils # Seg Neutrophils # Man Lymphocytes # (Manual) Monocytes # (Manual) Eosinophils # (Manual) Nucleated RBC % Basophils # (Manual) PT INR APTT Heparin Anti-Xa Level ABG pH POC ABG pO2 ABG pO2 ABG HCO3 ABG O2 Saturation ABG Base Excess POC ABG pCO2 ABG Hemoglobin ABG Oxyhemoglobin ABG Glucose Oxyhemoglobin Sodium Potassium Chloride Carbon Dioxide BUN 29 H Creatinine Glucose POC Glucose 107 H Lactic Acid Calcium Phosphorus Magnesium AST ALT Lactate Dehydrogenase CK-MB (CK-2) C-Reactive Protein NT-Pro-B Natriuret Pep Total Protein Albumin Arterial Blood Glucose Urine WBC (Auto) Urine Creatinine 11/26/19 11/27/19 11/27/19 17:11 01:53 04:11 WBC RBC Hgb Hct MCHC RDW MCV MCH Lymph % (Auto) [place] % (Auto) [place] # Eos # Lymph # (Auto) [place] # (Auto) Eos # (Auto) Seg Neutrophils % Seg Neuts % (Manual) Baso # (Auto) Lymphocytes % (Manual) Monocytes % (Manual) Eosinophils % (Manual) Basophils % (Manual) Seg Neutrophils # Seg Neutrophils # Man Lymphocytes # (Manual) Monocytes # (Manual) Eosinophils # (Manual) Nucleated RBC % Basophils # (Manual) PT INR APTT Heparin Anti-Xa Level ABG pH POC ABG pO2 ABG pO2 ABG HCO3 29.2 H ABG O2 Saturation ABG Base Excess 3.4 H POC ABG pCO2 ABG Hemoglobin 13.3 L ABG Oxyhemoglobin ABG Glucose Oxyhemoglobin 94.5 L Sodium Potassium Chloride Carbon Dioxide BUN Creatinine Glucose POC Glucose 113 H 108 H Lactic Acid Calcium Phosphorus Magnesium AST ALT Lactate Dehydrogenase CK-MB (CK-2) C-Reactive Protein NT-Pro-B Natriuret Pep Total Protein Albumin Arterial Blood Glucose Urine WBC (Auto) Urine Creatinine 11/27/19 11/28/19 11/28/19 05:27 05:00 05:25 WBC RBC Hgb Hct MCHC RDW MCV MCH Lymph % (Auto) [place] % (Auto) [place] # Eos # Lymph # (Auto) [place] # (Auto) Eos # (Auto) Seg Neutrophils % Seg Neuts % (Manual) Baso # (Auto) Lymphocytes % (Manual) Monocytes % (Manual) Eosinophils % (Manual) Basophils % (Manual) Seg Neutrophils # Seg Neutrophils # Man Lymphocytes # (Manual) Monocytes # (Manual) Eosinophils # (Manual) Nucleated RBC % Basophils # (Manual) PT INR APTT Heparin Anti-Xa Level ABG pH POC ABG pO2 68.1 L ABG pO2 ABG HCO3 ABG O2 Saturation ABG Base Excess POC ABG pCO2 ABG Hemoglobin ABG Oxyhemoglobin 91.2 L ABG Glucose Oxyhemoglobin Sodium Potassium Chloride Carbon Dioxide BUN Creatinine Glucose POC Glucose 111 H 110 H Lactic Acid Calcium Phosphorus Magnesium AST ALT Lactate Dehydrogenase CK-MB (CK-2) C-Reactive Protein NT-Pro-B Natriuret Pep Total Protein Albumin Arterial Blood Glucose Urine WBC (Auto) Urine Creatinine 11/28/19 11/28/19 11/28/19 12:08 13:47 13:47 WBC 11.3 H RBC Hgb Hct MCHC RDW 16.1 H MCV MCH Lymph % (Auto) [place] % (Auto) 9.9 H [place] # 1.1 H Eos # Lymph # (Auto) [place] # (Auto) Eos # (Auto) Seg Neutrophils % 71.4 H Seg Neuts % (Manual) Baso # (Auto) Lymphocytes % (Manual) Monocytes % (Manual) Eosinophils % (Manual) Basophils % (Manual) Seg Neutrophils # 8.1 H Seg Neutrophils # Man Lymphocytes # (Manual) Monocytes # (Manual) Eosinophils # (Manual) Nucleated RBC % Basophils # (Manual) PT INR APTT Heparin Anti-Xa Level ABG pH POC ABG pO2 ABG pO2 ABG HCO3 ABG O2 Saturation ABG Base Excess POC ABG pCO2 ABG Hemoglobin ABG Oxyhemoglobin ABG Glucose Oxyhemoglobin Sodium Potassium Chloride Carbon Dioxide BUN 23 H Creatinine Glucose 123 H POC Glucose 112 H Lactic Acid Calcium Phosphorus Magnesium AST ALT Lactate Dehydrogenase CK-MB (CK-2) C-Reactive Protein NT-Pro-B Natriuret Pep Total Protein Albumin 3.7 L Arterial Blood Glucose Urine WBC (Auto) Urine Creatinine 11/28/19 11/29/19 11/29/19 17:26 03:55 17:04 WBC RBC Hgb Hct MCHC RDW MCV MCH Lymph % (Auto) [place] % (Auto) [place] # Eos # Lymph # (Auto) [place] # (Auto) Eos # (Auto) Seg Neutrophils % Seg Neuts % (Manual) Baso # (Auto) Lymphocytes % (Manual) Monocytes % (Manual) Eosinophils % (Manual) Basophils % (Manual) Seg Neutrophils # Seg Neutrophils # Man Lymphocytes # (Manual) Monocytes # (Manual) Eosinophils # (Manual) Nucleated RBC % Basophils # (Manual) PT INR APTT Heparin Anti-Xa Level ABG pH POC ABG pO2 ABG pO2 65.7 L ABG HCO3 28.3 H ABG O2 Saturation 93.9 L ABG Base Excess 3.6 H POC ABG pCO2 ABG Hemoglobin 13.3 L ABG Oxyhemoglobin ABG Glucose Oxyhemoglobin 91.5 L Sodium Potassium Chloride Carbon Dioxide BUN Creatinine Glucose POC Glucose 123 H 119 H Lactic Acid Calcium Phosphorus Magnesium AST ALT Lactate Dehydrogenase CK-MB (CK-2) C-Reactive Protein NT-Pro-B Natriuret Pep Total Protein Albumin Arterial Blood Glucose Urine WBC (Auto) Urine Creatinine 11/30/19 11/30/19 11/30/19 04:17 04:17 04:56 WBC 13.4 H RBC Hgb Hct MCHC RDW 15.6 H MCV MCH Lymph % (Auto) [place] % (Auto) [place] # Eos # Lymph # (Auto) [place] # (Auto) Eos # (Auto) Seg Neutrophils % Seg Neuts % (Manual) Baso # (Auto) Lymphocytes % (Manual) Monocytes % (Manual) Eosinophils % (Manual) Basophils % (Manual) Seg Neutrophils # Seg Neutrophils # Man Lymphocytes # (Manual) Monocytes # (Manual) Eosinophils # (Manual) Nucleated RBC % Basophils # (Manual) PT INR APTT Heparin Anti-Xa Level ABG pH POC ABG pO2 ABG pO2 56.3 L ABG HCO3 29.3 H ABG O2 Saturation 91.5 L ABG Base Excess 4.7 H POC ABG pCO2 ABG Hemoglobin 12.1 L ABG Oxyhemoglobin ABG Glucose Oxyhemoglobin 89.2 L Sodium 147 H Potassium Chloride Carbon Dioxide BUN 30 H Creatinine Glucose 124 H POC Glucose Lactic Acid Calcium Phosphorus Magnesium AST ALT Lactate Dehydrogenase CK-MB (CK-2) C-Reactive Protein NT-Pro-B Natriuret Pep Total Protein Albumin 3.8 L Arterial Blood Glucose Urine WBC (Auto) Urine Creatinine 11/30/19 11/30/19 11/30/19 05:51 11:54 18:17 WBC RBC Hgb Hct MCHC RDW MCV MCH Lymph % (Auto) [place] % (Auto) [place] # Eos # Lymph # (Auto) [place] # (Auto) Eos # (Auto) Seg Neutrophils % Seg Neuts % (Manual) Baso # (Auto) Lymphocytes % (Manual) Monocytes % (Manual) Eosinophils % (Manual) Basophils % (Manual) Seg Neutrophils # Seg Neutrophils # Man Lymphocytes # (Manual) Monocytes # (Manual) Eosinophils # (Manual) Nucleated RBC % Basophils # (Manual) PT INR APTT Heparin Anti-Xa Level ABG pH POC ABG pO2 ABG pO2 ABG HCO3 ABG O2 Saturation ABG Base Excess POC ABG pCO2 ABG Hemoglobin ABG Oxyhemoglobin ABG Glucose Oxyhemoglobin Sodium Potassium Chloride Carbon Dioxide BUN Creatinine Glucose POC Glucose 127 H 115 H 143 H Lactic Acid Calcium Phosphorus Magnesium AST ALT Lactate Dehydrogenase CK-MB (CK-2) C-Reactive Protein NT-Pro-B Natriuret Pep Total Protein Albumin Arterial Blood Glucose Urine WBC (Auto) Urine Creatinine 12/01/19 12/01/19 12/01/19 01:18 05:22 12:16 WBC RBC Hgb Hct MCHC RDW MCV MCH Lymph % (Auto) [place] % (Auto) [place] # Eos # Lymph # (Auto) [place] # (Auto) Eos # (Auto) Seg Neutrophils % Seg Neuts % (Manual) Baso # (Auto) Lymphocytes % (Manual) Monocytes % (Manual) Eosinophils % (Manual) Basophils % (Manual) Seg Neutrophils # Seg Neutrophils # Man Lymphocytes # (Manual) Monocytes # (Manual) Eosinophils # (Manual) Nucleated RBC % Basophils # (Manual) PT INR APTT Heparin Anti-Xa Level ABG pH POC ABG pO2 ABG pO2 ABG HCO3 ABG O2 Saturation ABG Base Excess POC ABG pCO2 ABG Hemoglobin ABG Oxyhemoglobin ABG Glucose Oxyhemoglobin Sodium Potassium 3.5 L Chloride 107.8 H Carbon Dioxide BUN 37 H Creatinine Glucose 157 H POC Glucose 118 H 148 H Lactic Acid Calcium 8.2 L D Phosphorus Magnesium AST 48 H ALT 60 H Lactate Dehydrogenase 194 H CK-MB (CK-2) C-Reactive Protein 8.50 H NT-Pro-B Natriuret Pep Total Protein 5.5 L Albumin 2.8 L Arterial Blood Glucose Urine WBC (Auto) Urine Creatinine 12/01/19 12/02/19 12/02/19 18:04 00:05 05:16 WBC 11.4 H RBC Hgb Hct MCHC RDW 15.9 H MCV MCH Lymph % (Auto) [place] % (Auto) 9.9 H [place] # 1.1 H Eos # Lymph # (Auto) [place] # (Auto) Eos # (Auto) Seg Neutrophils % 70.3 H Seg Neuts % (Manual) Baso # (Auto) Lymphocytes % (Manual) Monocytes % (Manual) Eosinophils % (Manual) Basophils % (Manual) Seg Neutrophils # 8.0 H Seg Neutrophils # Man Lymphocytes # (Manual) Monocytes # (Manual) Eosinophils # (Manual) Nucleated RBC % Basophils # (Manual) PT INR APTT Heparin Anti-Xa Level ABG pH POC ABG pO2 ABG pO2 ABG HCO3 ABG O2 Saturation ABG Base Excess POC ABG pCO2 ABG Hemoglobin ABG Oxyhemoglobin ABG Glucose Oxyhemoglobin Sodium Potassium Chloride Carbon Dioxide BUN Creatinine Glucose POC Glucose 143 H 107 H Lactic Acid Calcium Phosphorus Magnesium AST ALT Lactate Dehydrogenase CK-MB (CK-2) C-Reactive Protein NT-Pro-B Natriuret Pep Total Protein Albumin Arterial Blood Glucose Urine WBC (Auto) Urine Creatinine 12/02/19 12/02/19 12/02/19 05:16 06:03 11:52 WBC RBC Hgb Hct MCHC RDW MCV MCH Lymph % (Auto) [place] % (Auto) [place] # Eos # Lymph # (Auto) [place] # (Auto) Eos # (Auto) Seg Neutrophils % Seg Neuts % (Manual) Baso # (Auto) Lymphocytes % (Manual) Monocytes % (Manual) Eosinophils % (Manual) Basophils % (Manual) Seg Neutrophils # Seg Neutrophils # Man Lymphocytes # (Manual) Monocytes # (Manual) Eosinophils # (Manual) Nucleated RBC % Basophils # (Manual) PT INR APTT Heparin Anti-Xa Level ABG pH POC ABG pO2 ABG pO2 ABG HCO3 ABG O2 Saturation ABG Base Excess POC ABG pCO2 ABG Hemoglobin ABG Oxyhemoglobin ABG Glucose Oxyhemoglobin Sodium 146 H Potassium Chloride Carbon Dioxide BUN 28 H Creatinine Glucose 123 H POC Glucose 110 H 152 H Lactic Acid Calcium Phosphorus Magnesium AST ALT Lactate Dehydrogenase CK-MB (CK-2) C-Reactive Protein NT-Pro-B Natriuret Pep Total Protein Albumin Arterial Blood Glucose Urine WBC (Auto) Urine Creatinine 12/02/19 12/02/19 12/02/19 12:58 17:58 23:36 WBC RBC Hgb Hct MCHC RDW MCV MCH Lymph % (Auto) [place] % (Auto) [place] # Eos # Lymph # (Auto) [place] # (Auto) Eos # (Auto) Seg Neutrophils % Seg Neuts % (Manual) Baso # (Auto) Lymphocytes % (Manual) Monocytes % (Manual) Eosinophils % (Manual) Basophils % (Manual) Seg Neutrophils # Seg Neutrophils # Man Lymphocytes # (Manual) Monocytes # (Manual) Eosinophils # (Manual) Nucleated RBC % Basophils # (Manual) PT INR APTT Heparin Anti-Xa Level ABG pH POC ABG pO2 78.1 L ABG pO2 ABG HCO3 ABG O2 Saturation ABG Base Excess POC ABG pCO2 ABG Hemoglobin ABG Oxyhemoglobin ABG Glucose Oxyhemoglobin Sodium Potassium Chloride Carbon Dioxide BUN Creatinine Glucose POC Glucose 120 H 123 H Lactic Acid Calcium Phosphorus Magnesium AST ALT Lactate Dehydrogenase CK-MB (CK-2) C-Reactive Protein NT-Pro-B Natriuret Pep Total Protein Albumin Arterial Blood Glucose Urine WBC (Auto) Urine Creatinine 12/03/19 12/03/19 12/03/19 06:03 06:14 11:46 WBC RBC Hgb Hct MCHC RDW MCV MCH Lymph % (Auto) [place] % (Auto) [place] # Eos # Lymph # (Auto) [place] # (Auto) Eos # (Auto) Seg Neutrophils % Seg Neuts % (Manual) Baso # (Auto) Lymphocytes % (Manual) Monocytes % (Manual) Eosinophils % (Manual) Basophils % (Manual) Seg Neutrophils # Seg Neutrophils # Man Lymphocytes # (Manual) Monocytes # (Manual) Eosinophils # (Manual) Nucleated RBC % Basophils # (Manual) PT INR APTT Heparin Anti-Xa Level ABG pH POC ABG pO2 ABG pO2 ABG HCO3 ABG O2 Saturation ABG Base Excess POC ABG pCO2 ABG Hemoglobin ABG Oxyhemoglobin ABG Glucose Oxyhemoglobin Sodium Potassium Chloride Carbon Dioxide BUN Creatinine Glucose POC Glucose 142 H 130 H Lactic Acid Calcium Phosphorus Magnesium AST ALT Lactate Dehydrogenase CK-MB (CK-2) C-Reactive Protein NT-Pro-B Natriuret Pep Total Protein Albumin Arterial Blood Glucose Urine WBC (Auto) 8.0 H Urine Creatinine 12/03/19 12/03/19 12/04/19 15:50 17:39 00:04 WBC RBC Hgb Hct MCHC RDW MCV MCH Lymph % (Auto) [place] % (Auto) [place] # Eos # Lymph # (Auto) [place] # (Auto) Eos # (Auto) Seg Neutrophils % Seg Neuts % (Manual) Baso # (Auto) Lymphocytes % (Manual) Monocytes % (Manual) Eosinophils % (Manual) Basophils % (Manual) Seg Neutrophils # Seg Neutrophils # Man Lymphocytes # (Manual) Monocytes # (Manual) Eosinophils # (Manual) Nucleated RBC % Basophils # (Manual) PT INR APTT Heparin Anti-Xa Level ABG pH POC ABG pO2 ABG pO2 ABG HCO3 ABG O2 Saturation ABG Base Excess POC ABG pCO2 ABG Hemoglobin ABG Oxyhemoglobin ABG Glucose Oxyhemoglobin Sodium Potassium Chloride Carbon Dioxide BUN Creatinine Glucose POC Glucose 146 H 133 H Lactic Acid Calcium Phosphorus 2.40 L Magnesium AST ALT Lactate Dehydrogenase CK-MB (CK-2) C-Reactive Protein NT-Pro-B Natriuret Pep Total Protein Albumin Arterial Blood Glucose Urine WBC (Auto) Urine Creatinine 12/04/19 12/04/19 12/04/19 03:58 03:58 05:22 WBC 12.5 H RBC Hgb 11.2 L Hct 35.2 L MCHC RDW 16.0 H MCV MCH Lymph % (Auto) [place] % (Auto) 9.6 H [place] # 1.2 H Eos # 0.5 H Lymph # (Auto) [place] # (Auto) Eos # (Auto) Seg Neutrophils % Seg Neuts % (Manual) Baso # (Auto) Lymphocytes % (Manual) Monocytes % (Manual) Eosinophils % (Manual) Basophils % (Manual) Seg Neutrophils # 8.6 H Seg Neutrophils # Man Lymphocytes # (Manual) Monocytes # (Manual) Eosinophils # (Manual) Nucleated RBC % Basophils # (Manual) PT INR APTT Heparin Anti-Xa Level ABG pH POC ABG pO2 ABG pO2 ABG HCO3 ABG O2 Saturation ABG Base Excess POC ABG pCO2 ABG Hemoglobin ABG Oxyhemoglobin ABG Glucose Oxyhemoglobin Sodium 146 H Potassium Chloride 108.6 H Carbon Dioxide BUN 30 H Creatinine 0.7 L Glucose 121 H POC Glucose 132 H Lactic Acid Calcium Phosphorus Magnesium AST ALT Lactate Dehydrogenase CK-MB (CK-2) C-Reactive Protein NT-Pro-B Natriuret Pep Total Protein Albumin Arterial Blood Glucose Urine WBC (Auto) Urine Creatinine 12/04/19 12/04/19 12/05/19 13:26 18:43 00:19 WBC RBC Hgb Hct MCHC RDW MCV MCH Lymph % (Auto) [place] % (Auto) [place] # Eos # Lymph # (Auto) [place] # (Auto) Eos # (Auto) Seg Neutrophils % Seg Neuts % (Manual) Baso # (Auto) Lymphocytes % (Manual) Monocytes % (Manual) Eosinophils % (Manual) Basophils % (Manual) Seg Neutrophils # Seg Neutrophils # Man Lymphocytes # (Manual) Monocytes # (Manual) Eosinophils # (Manual) Nucleated RBC % Basophils # (Manual) PT INR APTT Heparin Anti-Xa Level ABG pH POC ABG pO2 ABG pO2 ABG HCO3 ABG O2 Saturation ABG Base Excess POC ABG pCO2 ABG Hemoglobin ABG Oxyhemoglobin ABG Glucose Oxyhemoglobin Sodium Potassium Chloride Carbon Dioxide BUN Creatinine Glucose POC Glucose 185 H 156 H 150 H Lactic Acid Calcium Phosphorus Magnesium AST ALT Lactate Dehydrogenase CK-MB (CK-2) C-Reactive Protein NT-Pro-B Natriuret Pep Total Protein Albumin Arterial Blood Glucose Urine WBC (Auto) Urine Creatinine 12/05/19 12/05/19 12/05/19 03:37 03:37 05:14 WBC 16.3 H RBC Hgb 11.4 L Hct MCHC RDW 15.6 H MCV MCH Lymph % (Auto) 9.9 L [place] % (Auto) 9.7 H [place] # 1.6 H Eos # Lymph # (Auto) [place] # (Auto) Eos # (Auto) Seg Neutrophils % 78.0 H Seg Neuts % (Manual) Baso # (Auto) Lymphocytes % (Manual) Monocytes % (Manual) Eosinophils % (Manual) Basophils % (Manual) Seg Neutrophils # 12.7 H Seg Neutrophils # Man Lymphocytes # (Manual) Monocytes # (Manual) Eosinophils # (Manual) Nucleated RBC % Basophils # (Manual) PT INR APTT Heparin Anti-Xa Level ABG pH POC ABG pO2 ABG pO2 ABG HCO3 ABG O2 Saturation ABG Base Excess POC ABG pCO2 ABG Hemoglobin ABG Oxyhemoglobin ABG Glucose Oxyhemoglobin Sodium 146 H Potassium Chloride 107.2 H Carbon Dioxide BUN 27 H Creatinine 0.7 L Glucose 171 H POC Glucose 168 H Lactic Acid Calcium Phosphorus Magnesium AST ALT Lactate Dehydrogenase CK-MB (CK-2) C-Reactive Protein NT-Pro-B Natriuret Pep Total Protein Albumin Arterial Blood Glucose Urine WBC (Auto) Urine Creatinine 12/05/19 12/05/19 12/05/19 12:31 18:10 23:58 WBC RBC Hgb Hct MCHC RDW MCV MCH Lymph % (Auto) [place] % (Auto) [place] # Eos # Lymph # (Auto) [place] # (Auto) Eos # (Auto) Seg Neutrophils % Seg Neuts % (Manual) Baso # (Auto) Lymphocytes % (Manual) Monocytes % (Manual) Eosinophils % (Manual) Basophils % (Manual) Seg Neutrophils # Seg Neutrophils # Man Lymphocytes # (Manual) Monocytes # (Manual) Eosinophils # (Manual) Nucleated RBC % Basophils # (Manual) PT INR APTT Heparin Anti-Xa Level ABG pH POC ABG pO2 ABG pO2 ABG HCO3 ABG O2 Saturation ABG Base Excess POC ABG pCO2 ABG Hemoglobin ABG Oxyhemoglobin ABG Glucose Oxyhemoglobin Sodium Potassium Chloride Carbon Dioxide BUN Creatinine Glucose POC Glucose 159 H 198 H 115 H Lactic Acid Calcium Phosphorus Magnesium AST ALT Lactate Dehydrogenase CK-MB (CK-2) C-Reactive Protein NT-Pro-B Natriuret Pep Total Protein Albumin Arterial Blood Glucose Urine WBC (Auto) Urine Creatinine 12/06/19 12/06/19 12/06/19 05:24 05:24 05:25 WBC 14.9 H RBC Hgb 10.8 L Hct 34.0 L MCHC RDW 15.6 H MCV MCH Lymph % (Auto) 10.7 L [place] % (Auto) 8.3 H [place] # 1.2 H Eos # Lymph # (Auto) [place] # (Auto) Eos # (Auto) Seg Neutrophils % 78.7 H Seg Neuts % (Manual) Baso # (Auto) Lymphocytes % (Manual) Monocytes % (Manual) Eosinophils % (Manual) Basophils % (Manual) Seg Neutrophils # 11.7 H Seg Neutrophils # Man Lymphocytes # (Manual) Monocytes # (Manual) Eosinophils # (Manual) Nucleated RBC % Basophils # (Manual) PT INR APTT Heparin Anti-Xa Level ABG pH POC ABG pO2 ABG pO2 ABG HCO3 ABG O2 Saturation ABG Base Excess POC ABG pCO2 ABG Hemoglobin ABG Oxyhemoglobin ABG Glucose Oxyhemoglobin Sodium 148 H Potassium 5.1 H Chloride 107.6 H Carbon Dioxide BUN 27 H Creatinine 0.7 L Glucose 155 H POC Glucose 157 H Lactic Acid Calcium Phosphorus Magnesium AST ALT Lactate Dehydrogenase CK-MB (CK-2) C-Reactive Protein NT-Pro-B Natriuret Pep Total Protein Albumin Arterial Blood Glucose Urine WBC (Auto) Urine Creatinine 12/07/19 12/07/19 12/07/19 00:13 05:34 11:33 WBC RBC Hgb Hct MCHC RDW MCV MCH Lymph % (Auto) [place] % (Auto) [place] # Eos # Lymph # (Auto) [place] # (Auto) Eos # (Auto) Seg Neutrophils % Seg Neuts % (Manual) Baso # (Auto) Lymphocytes % (Manual) Monocytes % (Manual) Eosinophils % (Manual) Basophils % (Manual) Seg Neutrophils # Seg Neutrophils # Man Lymphocytes # (Manual) Monocytes # (Manual) Eosinophils # (Manual) Nucleated RBC % Basophils # (Manual) PT INR APTT Heparin Anti-Xa Level ABG pH POC ABG pO2 ABG pO2 ABG HCO3 ABG O2 Saturation ABG Base Excess POC ABG pCO2 ABG Hemoglobin ABG Oxyhemoglobin ABG Glucose Oxyhemoglobin Sodium Potassium Chloride Carbon Dioxide BUN Creatinine Glucose POC Glucose 142 H 111 H 169 H Lactic Acid Calcium Phosphorus Magnesium AST ALT Lactate Dehydrogenase CK-MB (CK-2) C-Reactive Protein NT-Pro-B Natriuret Pep Total Protein Albumin Arterial Blood Glucose Urine WBC (Auto) Urine Creatinine 12/07/19 12/07/19 12/07/19 12:41 13:25 18:19 WBC 12.4 H RBC 3.53 L Hgb 10.2 L Hct 32.1 L MCHC RDW 15.3 H MCV MCH Lymph % (Auto) 10.6 L [place] % (Auto) 7.8 H [place] # 1.0 H Eos # Lymph # (Auto) [place] # (Auto) Eos # (Auto) Seg Neutrophils % 77.6 H Seg Neuts % (Manual) Baso # (Auto) Lymphocytes % (Manual) Monocytes % (Manual) Eosinophils % (Manual) Basophils % (Manual) Seg Neutrophils # 9.6 H Seg Neutrophils # Man Lymphocytes # (Manual) Monocytes # (Manual) Eosinophils # (Manual) Nucleated RBC % Basophils # (Manual) PT INR APTT Heparin Anti-Xa Level ABG pH POC ABG pO2 ABG pO2 ABG HCO3 ABG O2 Saturation ABG Base Excess POC ABG pCO2 ABG Hemoglobin ABG Oxyhemoglobin ABG Glucose Oxyhemoglobin Sodium 149 H Potassium Chloride 108.4 H Carbon Dioxide BUN 26 H Creatinine 0.6 L Glucose 149 H POC Glucose 164 H Lactic Acid Calcium Phosphorus Magnesium 2.60 H AST 121 H ALT 145 H Lactate Dehydrogenase CK-MB (CK-2) C-Reactive Protein NT-Pro-B Natriuret Pep Total Protein Albumin 2.6 L Arterial Blood Glucose Urine WBC (Auto) Urine Creatinine 12/07/19 12/08/19 12/08/19 22:25 00:02 03:55 WBC 13.3 H RBC 3.40 L Hgb 9.7 L Hct 30.8 L MCHC 31 L RDW 15.5 H MCV MCH Lymph % (Auto) [place] % (Auto) 8.1 H [place] # 1.1 H Eos # Lymph # (Auto) [place] # (Auto) Eos # (Auto) Seg Neutrophils % 73.0 H Seg Neuts % (Manual) Baso # (Auto) Lymphocytes % (Manual) Monocytes % (Manual) Eosinophils % (Manual) Basophils % (Manual) Seg Neutrophils # 9.7 H Seg Neutrophils # Man Lymphocytes # (Manual) Monocytes # (Manual) Eosinophils # (Manual) Nucleated RBC % Basophils # (Manual) PT INR APTT Heparin Anti-Xa Level 0.12 L ABG pH POC ABG pO2 ABG pO2 ABG HCO3 ABG O2 Saturation ABG Base Excess POC ABG pCO2 ABG Hemoglobin ABG Oxyhemoglobin ABG Glucose Oxyhemoglobin Sodium Potassium Chloride Carbon Dioxide BUN Creatinine Glucose POC Glucose 151 H Lactic Acid Calcium Phosphorus Magnesium AST ALT Lactate Dehydrogenase CK-MB (CK-2) C-Reactive Protein NT-Pro-B Natriuret Pep Total Protein Albumin Arterial Blood Glucose Urine WBC (Auto) Urine Creatinine 12/08/19 12/08/19 12/08/19 03:55 05:21 06:01 WBC RBC Hgb Hct MCHC RDW MCV MCH Lymph % (Auto) [place] % (Auto) [place] # Eos # Lymph # (Auto) [place] # (Auto) Eos # (Auto) Seg Neutrophils % Seg Neuts % (Manual) Baso # (Auto) Lymphocytes % (Manual) Monocytes % (Manual) Eosinophils % (Manual) Basophils % (Manual) Seg Neutrophils # Seg Neutrophils # Man Lymphocytes # (Manual) Monocytes # (Manual) Eosinophils # (Manual) Nucleated RBC % Basophils # (Manual) PT INR APTT Heparin Anti-Xa Level 0.20 L ABG pH POC ABG pO2 ABG pO2 ABG HCO3 ABG O2 Saturation ABG Base Excess POC ABG pCO2 ABG Hemoglobin ABG Oxyhemoglobin ABG Glucose Oxyhemoglobin Sodium 149 H Potassium Chloride 108.0 H Carbon Dioxide BUN 28 H Creatinine 0.6 L Glucose 144 H POC Glucose 143 H Lactic Acid Calcium Phosphorus Magnesium AST 98 H ALT 145 H Lactate Dehydrogenase CK-MB (CK-2) C-Reactive Protein NT-Pro-B Natriuret Pep Total Protein 6.0 L Albumin 2.4 L Arterial Blood Glucose Urine WBC (Auto) Urine Creatinine 12/08/19 12/08/19 12/08/19 12:08 18:11 23:53 WBC RBC Hgb Hct MCHC RDW MCV MCH Lymph % (Auto) [place] % (Auto) [place] # Eos # Lymph # (Auto) [place] # (Auto) Eos # (Auto) Seg Neutrophils % Seg Neuts % (Manual) Baso # (Auto) Lymphocytes % (Manual) Monocytes % (Manual) Eosinophils % (Manual) Basophils % (Manual) Seg Neutrophils # Seg Neutrophils # Man Lymphocytes # (Manual) Monocytes # (Manual) Eosinophils # (Manual) Nucleated RBC % Basophils # (Manual) PT INR APTT Heparin Anti-Xa Level ABG pH POC ABG pO2 ABG pO2 ABG HCO3 ABG O2 Saturation ABG Base Excess POC ABG pCO2 ABG Hemoglobin ABG Oxyhemoglobin ABG Glucose Oxyhemoglobin Sodium Potassium Chloride Carbon Dioxide BUN Creatinine Glucose POC Glucose 172 H 122 H 162 H Lactic Acid Calcium Phosphorus Magnesium AST ALT Lactate Dehydrogenase CK-MB (CK-2) C-Reactive Protein NT-Pro-B Natriuret Pep Total Protein Albumin Arterial Blood Glucose Urine WBC (Auto) Urine Creatinine 12/09/19 12/09/19 12/09/19 04:03 04:03 05:53 WBC RBC Hgb 9.1 L Hct 28.9 L MCHC RDW MCV MCH Lymph % (Auto) [place] % (Auto) [place] # Eos # Lymph # (Auto) [place] # (Auto) Eos # (Auto) Seg Neutrophils % Seg Neuts % (Manual) Baso # (Auto) Lymphocytes % (Manual) Monocytes % (Manual) Eosinophils % (Manual) Basophils % (Manual) Seg Neutrophils # Seg Neutrophils # Man Lymphocytes # (Manual) Monocytes # (Manual) Eosinophils # (Manual) Nucleated RBC % Basophils # (Manual) PT INR APTT Heparin Anti-Xa Level 0.15 L ABG pH POC ABG pO2 ABG pO2 ABG HCO3 ABG O2 Saturation ABG Base Excess POC ABG pCO2 ABG Hemoglobin ABG Oxyhemoglobin ABG Glucose Oxyhemoglobin Sodium Potassium Chloride Carbon Dioxide BUN Creatinine Glucose POC Glucose 124 H Lactic Acid Calcium Phosphorus Magnesium AST ALT Lactate Dehydrogenase CK-MB (CK-2) C-Reactive Protein NT-Pro-B Natriuret Pep Total Protein Albumin Arterial Blood Glucose Urine WBC (Auto) Urine Creatinine 12/09/19 12/09/19 12/10/19 09:43 12:41 00:13 WBC RBC Hgb Hct MCHC RDW MCV MCH Lymph % (Auto) [place] % (Auto) [place] # Eos # Lymph # (Auto) [place] # (Auto) Eos # (Auto) Seg Neutrophils % Seg Neuts % (Manual) Baso # (Auto) Lymphocytes % (Manual) Monocytes % (Manual) Eosinophils % (Manual) Basophils % (Manual) Seg Neutrophils # Seg Neutrophils # Man Lymphocytes # (Manual) Monocytes # (Manual) Eosinophils # (Manual) Nucleated RBC % Basophils # (Manual) PT INR APTT Heparin Anti-Xa Level ABG pH POC ABG pO2 ABG pO2 ABG HCO3 ABG O2 Saturation ABG Base Excess POC ABG pCO2 ABG Hemoglobin ABG Oxyhemoglobin ABG Glucose Oxyhemoglobin Sodium Potassium Chloride Carbon Dioxide BUN 25 H Creatinine 0.6 L Glucose 131 H POC Glucose 109 H 120 H Lactic Acid Calcium Phosphorus Magnesium AST ALT Lactate Dehydrogenase CK-MB (CK-2) C-Reactive Protein NT-Pro-B Natriuret Pep Total Protein Albumin Arterial Blood Glucose Urine WBC (Auto) Urine Creatinine 12/10/19 12/10/19 12/10/19 04:14 04:14 12:00 WBC 13.3 H RBC 3.34 L Hgb 9.6 L Hct 30.4 L MCHC RDW 15.4 H MCV MCH Lymph % (Auto) [place] % (Auto) [place] # Eos # Lymph # (Auto) [place] # (Auto) Eos # (Auto) Seg Neutrophils % Seg Neuts % (Manual) 75.0 H Baso # (Auto) Lymphocytes % (Manual) 13.0 L Monocytes % (Manual) 8.0 H Eosinophils % (Manual) Basophils % (Manual) 2.0 H Seg Neutrophils # Seg Neutrophils # Man 10.0 H Lymphocytes # (Manual) Monocytes # (Manual) 1.1 H Eosinophils # (Manual) Nucleated RBC % Basophils # (Manual) 0.3 H PT INR APTT Heparin Anti-Xa Level ABG pH POC ABG pO2 ABG pO2 ABG HCO3 ABG O2 Saturation ABG Base Excess POC ABG pCO2 ABG Hemoglobin ABG Oxyhemoglobin ABG Glucose Oxyhemoglobin Sodium 147 H Potassium Chloride 108.3 H Carbon Dioxide BUN 21 H Creatinine 0.6 L Glucose 104 H POC Glucose 133 H Lactic Acid Calcium Phosphorus Magnesium AST ALT Lactate Dehydrogenase CK-MB (CK-2) C-Reactive Protein NT-Pro-B Natriuret Pep Total Protein Albumin Arterial Blood Glucose Urine WBC (Auto) Urine Creatinine 12/10/19 12/10/19 12/11/19 18:44 21:20 00:08 WBC 14.9 H RBC 3.36 L Hgb 9.6 L Hct 30.5 L MCHC RDW 15.4 H MCV MCH Lymph % (Auto) [place] % (Auto) [place] # Eos # Lymph # (Auto) [place] # (Auto) Eos # (Auto) Seg Neutrophils % Seg Neuts % (Manual) Baso # (Auto) Lymphocytes % (Manual) Monocytes % (Manual) Eosinophils % (Manual) Basophils % (Manual) Seg Neutrophils # Seg Neutrophils # Man Lymphocytes # (Manual) Monocytes # (Manual) Eosinophils # (Manual) Nucleated RBC % Basophils # (Manual) PT INR APTT Heparin Anti-Xa Level ABG pH POC ABG pO2 ABG pO2 ABG HCO3 ABG O2 Saturation ABG Base Excess POC ABG pCO2 ABG Hemoglobin ABG Oxyhemoglobin ABG Glucose Oxyhemoglobin Sodium Potassium Chloride Carbon Dioxide BUN Creatinine Glucose POC Glucose 119 H 134 H Lactic Acid Calcium Phosphorus Magnesium AST ALT Lactate Dehydrogenase CK-MB (CK-2) C-Reactive Protein NT-Pro-B Natriuret Pep Total Protein Albumin Arterial Blood Glucose Urine WBC (Auto) Urine Creatinine 12/11/19 12/11/19 12/11/19 03:54 07:28 08:36 WBC 11.9 H RBC 3.25 L Hgb 9.6 L Hct 29.2 L MCHC RDW 15.7 H MCV MCH Lymph % (Auto) [place] % (Auto) [place] # Eos # Lymph # (Auto) [place] # (Auto) Eos # (Auto) Seg Neutrophils % Seg Neuts % (Manual) Baso # (Auto) Lymphocytes % (Manual) Monocytes % (Manual) Eosinophils % (Manual) Basophils % (Manual) Seg Neutrophils # Seg Neutrophils # Man Lymphocytes # (Manual) Monocytes # (Manual) Eosinophils # (Manual) Nucleated RBC % Basophils # (Manual) PT INR APTT Heparin Anti-Xa Level 0.10 L 0.16 L ABG pH POC ABG pO2 ABG pO2 ABG HCO3 ABG O2 Saturation ABG Base Excess POC ABG pCO2 ABG Hemoglobin ABG Oxyhemoglobin ABG Glucose Oxyhemoglobin Sodium Potassium Chloride Carbon Dioxide BUN Creatinine Glucose POC Glucose Lactic Acid Calcium Phosphorus Magnesium AST ALT Lactate Dehydrogenase CK-MB (CK-2) C-Reactive Protein NT-Pro-B Natriuret Pep Total Protein Albumin Arterial Blood Glucose Urine WBC (Auto) Urine Creatinine 12/11/19 12/11/19 12/11/19 08:36 11:45 17:15 WBC RBC Hgb Hct MCHC RDW MCV MCH Lymph % (Auto) [place] % (Auto) [place] # Eos # Lymph # (Auto) [place] # (Auto) Eos # (Auto) Seg Neutrophils % Seg Neuts % (Manual) Baso # (Auto) Lymphocytes % (Manual) Monocytes % (Manual) Eosinophils % (Manual) Basophils % (Manual) Seg Neutrophils # Seg Neutrophils # Man Lymphocytes # (Manual) Monocytes # (Manual) Eosinophils # (Manual) Nucleated RBC % Basophils # (Manual) PT INR APTT Heparin Anti-Xa Level ABG pH POC ABG pO2 ABG pO2 ABG HCO3 ABG O2 Saturation ABG Base Excess POC ABG pCO2 ABG Hemoglobin ABG Oxyhemoglobin ABG Glucose Oxyhemoglobin Sodium Potassium Chloride Carbon Dioxide BUN Creatinine 0.5 L Glucose 128 H POC Glucose 136 H 109 H Lactic Acid Calcium Phosphorus Magnesium AST ALT Lactate Dehydrogenase CK-MB (CK-2) C-Reactive Protein NT-Pro-B Natriuret Pep Total Protein Albumin Arterial Blood Glucose Urine WBC (Auto) Urine Creatinine 12/12/19 12/12/19 12/12/19 00:03 05:53 05:53 WBC RBC Hgb 8.8 L Hct 27.6 L MCHC RDW MCV MCH Lymph % (Auto) [place] % (Auto) [place] # Eos # Lymph # (Auto) [place] # (Auto) Eos # (Auto) Seg Neutrophils % Seg Neuts % (Manual) Baso # (Auto) Lymphocytes % (Manual) Monocytes % (Manual) Eosinophils % (Manual) Basophils % (Manual) Seg Neutrophils # Seg Neutrophils # Man Lymphocytes # (Manual) Monocytes # (Manual) Eosinophils # (Manual) Nucleated RBC % Basophils # (Manual) PT INR APTT Heparin Anti-Xa Level 0.22 L ABG pH POC ABG pO2 ABG pO2 ABG HCO3 ABG O2 Saturation ABG Base Excess POC ABG pCO2 ABG Hemoglobin ABG Oxyhemoglobin ABG Glucose Oxyhemoglobin Sodium Potassium Chloride Carbon Dioxide BUN Creatinine Glucose POC Glucose 116 H Lactic Acid Calcium Phosphorus Magnesium AST ALT Lactate Dehydrogenase CK-MB (CK-2) C-Reactive Protein NT-Pro-B Natriuret Pep Total Protein Albumin Arterial Blood Glucose Urine WBC (Auto) Urine Creatinine 12/12/19 12/12/19 12/12/19 09:38 12:18 17:44 WBC RBC Hgb Hct MCHC RDW MCV MCH Lymph % (Auto) [place] % (Auto) [place] # Eos # Lymph # (Auto) [place] # (Auto) Eos # (Auto) Seg Neutrophils % Seg Neuts % (Manual) Baso # (Auto) Lymphocytes % (Manual) Monocytes % (Manual) Eosinophils % (Manual) Basophils % (Manual) Seg Neutrophils # Seg Neutrophils # Man Lymphocytes # (Manual) Monocytes # (Manual) Eosinophils # (Manual) Nucleated RBC % Basophils # (Manual) PT INR APTT Heparin Anti-Xa Level ABG pH POC ABG pO2 ABG pO2 ABG HCO3 ABG O2 Saturation ABG Base Excess POC ABG pCO2 ABG Hemoglobin ABG Oxyhemoglobin ABG Glucose Oxyhemoglobin Sodium Potassium Chloride Carbon Dioxide BUN Creatinine Glucose POC Glucose 115 H 146 H 146 H Lactic Acid Calcium Phosphorus Magnesium AST ALT Lactate Dehydrogenase CK-MB (CK-2) C-Reactive Protein NT-Pro-B Natriuret Pep Total Protein Albumin Arterial Blood Glucose Urine WBC (Auto) Urine Creatinine 12/12/19 12/13/19 12/13/19 23:33 05:32 05:32 WBC 13.1 H RBC 3.27 L Hgb 9.5 L Hct 29.3 L MCHC RDW 15.6 H MCV MCH Lymph % (Auto) [place] % (Auto) [place] # Eos # Lymph # (Auto) [place] # (Auto) Eos # (Auto) Seg Neutrophils % Seg Neuts % (Manual) 74.0 H Baso # (Auto) Lymphocytes % (Manual) 8.0 L Monocytes % (Manual) 9.0 H Eosinophils % (Manual) 5.0 H Basophils % (Manual) Seg Neutrophils # Seg Neutrophils # Man 9.7 H Lymphocytes # (Manual) 1.0 L Monocytes # (Manual) 1.2 H Eosinophils # (Manual) 0.7 H Nucleated RBC % Basophils # (Manual) PT INR APTT Heparin Anti-Xa Level 0.20 L ABG pH POC ABG pO2 ABG pO2 ABG HCO3 ABG O2 Saturation ABG Base Excess POC ABG pCO2 ABG Hemoglobin ABG Oxyhemoglobin ABG Glucose Oxyhemoglobin Sodium Potassium Chloride Carbon Dioxide BUN Creatinine Glucose POC Glucose 126 H Lactic Acid Calcium Phosphorus Magnesium AST ALT Lactate Dehydrogenase CK-MB (CK-2) C-Reactive Protein NT-Pro-B Natriuret Pep Total Protein Albumin Arterial Blood Glucose Urine WBC (Auto) Urine Creatinine 12/13/19 12/13/19 12/13/19 05:32 05:46 11:57 WBC RBC Hgb Hct MCHC RDW MCV MCH Lymph % (Auto) [place] % (Auto) [place] # Eos # Lymph # (Auto) [place] # (Auto) Eos # (Auto) Seg Neutrophils % Seg Neuts % (Manual) Baso # (Auto) Lymphocytes % (Manual) Monocytes % (Manual) Eosinophils % (Manual) Basophils % (Manual) Seg Neutrophils # Seg Neutrophils # Man Lymphocytes # (Manual) Monocytes # (Manual) Eosinophils # (Manual) Nucleated RBC % Basophils # (Manual) PT INR APTT Heparin Anti-Xa Level ABG pH POC ABG pO2 ABG pO2 ABG HCO3 ABG O2 Saturation ABG Base Excess POC ABG pCO2 ABG Hemoglobin ABG Oxyhemoglobin ABG Glucose Oxyhemoglobin Sodium Potassium Chloride Carbon Dioxide 31 H BUN Creatinine 0.6 L Glucose 114 H POC Glucose 118 H 133 H Lactic Acid Calcium Phosphorus Magnesium AST ALT Lactate Dehydrogenase CK-MB (CK-2) C-Reactive Protein NT-Pro-B Natriuret Pep Total Protein Albumin Arterial Blood Glucose Urine WBC (Auto) Urine Creatinine 12/13/19 12/13/19 12/14/19 17:44 23:46 05:32 WBC RBC Hgb Hct MCHC RDW MCV MCH Lymph % (Auto) [place] % (Auto) [place] # Eos # Lymph # (Auto) [place] # (Auto) Eos # (Auto) Seg Neutrophils % Seg Neuts % (Manual) Baso # (Auto) Lymphocytes % (Manual) Monocytes % (Manual) Eosinophils % (Manual) Basophils % (Manual) Seg Neutrophils # Seg Neutrophils # Man Lymphocytes # (Manual) Monocytes # (Manual) Eosinophils # (Manual) Nucleated RBC % Basophils # (Manual) PT INR APTT Heparin Anti-Xa Level ABG pH POC ABG pO2 ABG pO2 ABG HCO3 ABG O2 Saturation ABG Base Excess POC ABG pCO2 ABG Hemoglobin ABG Oxyhemoglobin ABG Glucose Oxyhemoglobin Sodium Potassium Chloride Carbon Dioxide BUN Creatinine Glucose POC Glucose 161 H 126 H 139 H Lactic Acid Calcium Phosphorus Magnesium AST ALT Lactate Dehydrogenase CK-MB (CK-2) C-Reactive Protein NT-Pro-B Natriuret Pep Total Protein Albumin Arterial Blood Glucose Urine WBC (Auto) Urine Creatinine 12/14/19 12/14/19 12/14/19 06:03 06:03 09:37 WBC RBC Hgb 9.6 L Hct 30.4 L MCHC RDW MCV MCH Lymph % (Auto) [place] % (Auto) [place] # Eos # Lymph # (Auto) [place] # (Auto) Eos # (Auto) Seg Neutrophils % Seg Neuts % (Manual) Baso # (Auto) Lymphocytes % (Manual) Monocytes % (Manual) Eosinophils % (Manual) Basophils % (Manual) Seg Neutrophils # Seg Neutrophils # Man Lymphocytes # (Manual) Monocytes # (Manual) Eosinophils # (Manual) Nucleated RBC % Basophils # (Manual) PT INR APTT Heparin Anti-Xa Level 0.24 L ABG pH POC ABG pO2 ABG pO2 ABG HCO3 ABG O2 Saturation ABG Base Excess POC ABG pCO2 ABG Hemoglobin ABG Oxyhemoglobin ABG Glucose Oxyhemoglobin Sodium Potassium Chloride Carbon Dioxide BUN Creatinine 0.6 L Glucose 162 H POC Glucose Lactic Acid Calcium Phosphorus Magnesium AST 71 H ALT 118 H Lactate Dehydrogenase CK-MB (CK-2) C-Reactive Protein NT-Pro-B Natriuret Pep Total Protein 6.2 L Albumin 2.3 L Arterial Blood Glucose Urine WBC (Auto) Urine Creatinine 12/14/19 12/14/19 12/15/19 12:06 18:18 00:19 WBC RBC Hgb Hct MCHC RDW MCV MCH Lymph % (Auto) [place] % (Auto) [place] # Eos # Lymph # (Auto) [place] # (Auto) Eos # (Auto) Seg Neutrophils % Seg Neuts % (Manual) Baso # (Auto) Lymphocytes % (Manual) Monocytes % (Manual) Eosinophils % (Manual) Basophils % (Manual) Seg Neutrophils # Seg Neutrophils # Man Lymphocytes # (Manual) Monocytes # (Manual) Eosinophils # (Manual) Nucleated RBC % Basophils # (Manual) PT INR APTT Heparin Anti-Xa Level ABG pH POC ABG pO2 ABG pO2 ABG HCO3 ABG O2 Saturation ABG Base Excess POC ABG pCO2 ABG Hemoglobin ABG Oxyhemoglobin ABG Glucose Oxyhemoglobin Sodium Potassium Chloride Carbon Dioxide BUN Creatinine Glucose POC Glucose 147 H 166 H 123 H Lactic Acid Calcium Phosphorus Magnesium AST ALT Lactate Dehydrogenase CK-MB (CK-2) C-Reactive Protein NT-Pro-B Natriuret Pep Total Protein Albumin Arterial Blood Glucose Urine WBC (Auto) Urine Creatinine 12/15/19 12/15/19 12/15/19 05:28 05:29 05:29 WBC 14.9 H RBC 3.19 L Hgb 9.1 L Hct 28.7 L MCHC RDW 16.0 H MCV MCH Lymph % (Auto) [place] % (Auto) [place] # Eos # Lymph # (Auto) [place] # (Auto) Eos # (Auto) Seg Neutrophils % Seg Neuts % (Manual) Baso # (Auto) Lymphocytes % (Manual) Monocytes % (Manual) Eosinophils % (Manual) Basophils % (Manual) Seg Neutrophils # Seg Neutrophils # Man Lymphocytes # (Manual) Monocytes # (Manual) Eosinophils # (Manual) Nucleated RBC % Basophils # (Manual) PT INR APTT Heparin Anti-Xa Level 0.19 L ABG pH POC ABG pO2 ABG pO2 ABG HCO3 ABG O2 Saturation ABG Base Excess POC ABG pCO2 ABG Hemoglobin ABG Oxyhemoglobin ABG Glucose Oxyhemoglobin Sodium Potassium Chloride Carbon Dioxide BUN Creatinine 0.6 L Glucose 110 H POC Glucose Lactic Acid Calcium Phosphorus Magnesium AST ALT Lactate Dehydrogenase CK-MB (CK-2) C-Reactive Protein NT-Pro-B Natriuret Pep Total Protein Albumin Arterial Blood Glucose Urine WBC (Auto) Urine Creatinine 12/15/19 12/15/19 12/15/19 05:53 11:50 17:26 WBC RBC Hgb Hct MCHC RDW MCV MCH Lymph % (Auto) [place] % (Auto) [place] # Eos # Lymph # (Auto) [place] # (Auto) Eos # (Auto) Seg Neutrophils % Seg Neuts % (Manual) Baso # (Auto) Lymphocytes % (Manual) Monocytes % (Manual) Eosinophils % (Manual) Basophils % (Manual) Seg Neutrophils # Seg Neutrophils # Man Lymphocytes # (Manual) Monocytes # (Manual) Eosinophils # (Manual) Nucleated RBC % Basophils # (Manual) PT INR APTT Heparin Anti-Xa Level ABG pH POC ABG pO2 ABG pO2 ABG HCO3 ABG O2 Saturation ABG Base Excess POC ABG pCO2 ABG Hemoglobin ABG Oxyhemoglobin ABG Glucose Oxyhemoglobin Sodium Potassium Chloride Carbon Dioxide BUN Creatinine Glucose POC Glucose 119 H 132 H 128 H Lactic Acid Calcium Phosphorus Magnesium AST ALT Lactate Dehydrogenase CK-MB (CK-2) C-Reactive Protein NT-Pro-B Natriuret Pep Total Protein Albumin Arterial Blood Glucose Urine WBC (Auto) Urine Creatinine 12/15/19 12/16/19 12/16/19 23:11 05:30 05:46 WBC RBC Hgb 8.8 L Hct 27.9 L MCHC RDW MCV MCH Lymph % (Auto) [place] % (Auto) [place] # Eos # Lymph # (Auto) [place] # (Auto) Eos # (Auto) Seg Neutrophils % Seg Neuts % (Manual) Baso # (Auto) Lymphocytes % (Manual) Monocytes % (Manual) Eosinophils % (Manual) Basophils % (Manual) Seg Neutrophils # Seg Neutrophils # Man Lymphocytes # (Manual) Monocytes # (Manual) Eosinophils # (Manual) Nucleated RBC % Basophils # (Manual) PT INR APTT Heparin Anti-Xa Level ABG pH POC ABG pO2 ABG pO2 ABG HCO3 ABG O2 Saturation ABG Base Excess POC ABG pCO2 ABG Hemoglobin ABG Oxyhemoglobin ABG Glucose Oxyhemoglobin Sodium Potassium Chloride Carbon Dioxide BUN Creatinine Glucose POC Glucose 150 H 134 H Lactic Acid Calcium Phosphorus Magnesium AST ALT Lactate Dehydrogenase CK-MB (CK-2) C-Reactive Protein NT-Pro-B Natriuret Pep Total Protein Albumin Arterial Blood Glucose Urine WBC (Auto) Urine Creatinine 12/16/19 12/16/19 12/16/19 05:46 05:46 11:44 WBC RBC Hgb Hct MCHC RDW MCV MCH Lymph % (Auto) [place] % (Auto) [place] # Eos # Lymph # (Auto) [place] # (Auto) Eos # (Auto) Seg Neutrophils % Seg Neuts % (Manual) Baso # (Auto) Lymphocytes % (Manual) Monocytes % (Manual) Eosinophils % (Manual) Basophils % (Manual) Seg Neutrophils # Seg Neutrophils # Man Lymphocytes # (Manual) Monocytes # (Manual) Eosinophils # (Manual) Nucleated RBC % Basophils # (Manual) PT INR APTT Heparin Anti-Xa Level 0.20 L ABG pH POC ABG pO2 ABG pO2 ABG HCO3 ABG O2 Saturation ABG Base Excess POC ABG pCO2 ABG Hemoglobin ABG Oxyhemoglobin ABG Glucose Oxyhemoglobin Sodium Potassium Chloride Carbon Dioxide 31 H BUN Creatinine 0.5 L Glucose 147 H POC Glucose 164 H Lactic Acid Calcium Phosphorus Magnesium AST ALT Lactate Dehydrogenase CK-MB (CK-2) C-Reactive Protein NT-Pro-B Natriuret Pep Total Protein Albumin Arterial Blood Glucose Urine WBC (Auto) Urine Creatinine 12/16/19 12/16/19 12/17/19 17:17 23:49 05:30 WBC 13.9 H RBC 3.27 L Hgb 9.4 L Hct 29.2 L MCHC RDW 16.0 H MCV MCH Lymph % (Auto) [place] % (Auto) 8.8 H [place] # Eos # Lymph # (Auto) [place] # (Auto) 1.2 H Eos # (Auto) 0.5 H Seg Neutrophils % 70.5 H Seg Neuts % (Manual) Baso # (Auto) 0.2 H Lymphocytes % (Manual) Monocytes % (Manual) Eosinophils % (Manual) Basophils % (Manual) Seg Neutrophils # 9.8 H Seg Neutrophils # Man Lymphocytes # (Manual) Monocytes # (Manual) Eosinophils # (Manual) Nucleated RBC % Basophils # (Manual) PT INR APTT Heparin Anti-Xa Level ABG pH POC ABG pO2 ABG pO2 ABG HCO3 ABG O2 Saturation ABG Base Excess POC ABG pCO2 ABG Hemoglobin ABG Oxyhemoglobin ABG Glucose Oxyhemoglobin Sodium Potassium Chloride Carbon Dioxide BUN Creatinine Glucose POC Glucose 162 H 144 H Lactic Acid Calcium Phosphorus Magnesium AST ALT Lactate Dehydrogenase CK-MB (CK-2) C-Reactive Protein NT-Pro-B Natriuret Pep Total Protein Albumin Arterial Blood Glucose Urine WBC (Auto) Urine Creatinine 12/17/19 12/17/19 12/17/19 05:30 06:06 11:50 WBC RBC Hgb Hct MCHC RDW MCV MCH Lymph % (Auto) [place] % (Auto) [place] # Eos # Lymph # (Auto) [place] # (Auto) Eos # (Auto) Seg Neutrophils % Seg Neuts % (Manual) Baso # (Auto) Lymphocytes % (Manual) Monocytes % (Manual) Eosinophils % (Manual) Basophils % (Manual) Seg Neutrophils # Seg Neutrophils # Man Lymphocytes # (Manual) Monocytes # (Manual) Eosinophils # (Manual) Nucleated RBC % Basophils # (Manual) PT INR APTT Heparin Anti-Xa Level ABG pH POC ABG pO2 ABG pO2 ABG HCO3 ABG O2 Saturation ABG Base Excess POC ABG pCO2 ABG Hemoglobin ABG Oxyhemoglobin ABG Glucose Oxyhemoglobin Sodium Potassium Chloride 97.4 L Carbon Dioxide 32 H BUN Creatinine 0.5 L Glucose 135 H POC Glucose 151 H 140 H Lactic Acid Calcium Phosphorus Magnesium AST ALT Lactate Dehydrogenase CK-MB (CK-2) C-Reactive Protein NT-Pro-B Natriuret Pep Total Protein Albumin Arterial Blood Glucose Urine WBC (Auto) Urine Creatinine 12/17/19 12/17/19 12/18/19 17:50 23:46 05:17 WBC RBC Hgb 8.8 L Hct 28.0 L MCHC RDW MCV MCH Lymph % (Auto) [place] % (Auto) [place] # Eos # Lymph # (Auto) [place] # (Auto) Eos # (Auto) Seg Neutrophils % Seg Neuts % (Manual) Baso # (Auto) Lymphocytes % (Manual) Monocytes % (Manual) Eosinophils % (Manual) Basophils % (Manual) Seg Neutrophils # Seg Neutrophils # Man Lymphocytes # (Manual) Monocytes # (Manual) Eosinophils # (Manual) Nucleated RBC % Basophils # (Manual) PT INR APTT Heparin Anti-Xa Level ABG pH POC ABG pO2 ABG pO2 ABG HCO3 ABG O2 Saturation ABG Base Excess POC ABG pCO2 ABG Hemoglobin ABG Oxyhemoglobin ABG Glucose Oxyhemoglobin Sodium Potassium Chloride Carbon Dioxide BUN Creatinine Glucose POC Glucose 158 H 150 H Lactic Acid Calcium Phosphorus Magnesium AST ALT Lactate Dehydrogenase CK-MB (CK-2) C-Reactive Protein NT-Pro-B Natriuret Pep Total Protein Albumin Arterial Blood Glucose Urine WBC (Auto) Urine Creatinine 12/18/19 12/18/19 12/18/19 05:17 05:49 11:12 WBC RBC Hgb Hct MCHC RDW MCV MCH Lymph % (Auto) [place] % (Auto) [place] # Eos # Lymph # (Auto) [place] # (Auto) Eos # (Auto) Seg Neutrophils % Seg Neuts % (Manual) Baso # (Auto) Lymphocytes % (Manual) Monocytes % (Manual) Eosinophils % (Manual) Basophils % (Manual) Seg Neutrophils # Seg Neutrophils # Man Lymphocytes # (Manual) Monocytes # (Manual) Eosinophils # (Manual) Nucleated RBC % Basophils # (Manual) PT INR APTT Heparin Anti-Xa Level 0.16 L ABG pH POC ABG pO2 ABG pO2 ABG HCO3 ABG O2 Saturation ABG Base Excess POC ABG pCO2 ABG Hemoglobin ABG Oxyhemoglobin ABG Glucose Oxyhemoglobin Sodium Potassium Chloride Carbon Dioxide BUN Creatinine Glucose POC Glucose 127 H 191 H Lactic Acid Calcium Phosphorus Magnesium AST ALT Lactate Dehydrogenase CK-MB (CK-2) C-Reactive Protein NT-Pro-B Natriuret Pep Total Protein Albumin Arterial Blood Glucose Urine WBC (Auto) Urine Creatinine 12/18/19 12/18/19 12/19/19 17:03 20:16 00:08 WBC RBC Hgb Hct MCHC RDW MCV MCH Lymph % (Auto) [place] % (Auto) [place] # Eos # Lymph # (Auto) [place] # (Auto) Eos # (Auto) Seg Neutrophils % Seg Neuts % (Manual) Baso # (Auto) Lymphocytes % (Manual) Monocytes % (Manual) Eosinophils % (Manual) Basophils % (Manual) Seg Neutrophils # Seg Neutrophils # Man Lymphocytes # (Manual) Monocytes # (Manual) Eosinophils # (Manual) Nucleated RBC % Basophils # (Manual) PT INR APTT Heparin Anti-Xa Level ABG pH POC ABG pO2 ABG pO2 ABG HCO3 ABG O2 Saturation ABG Base Excess POC ABG pCO2 ABG Hemoglobin ABG Oxyhemoglobin ABG Glucose Oxyhemoglobin Sodium Potassium Chloride Carbon Dioxide BUN Creatinine Glucose POC Glucose 133 H 128 H 129 H Lactic Acid Calcium Phosphorus Magnesium AST ALT Lactate Dehydrogenase CK-MB (CK-2) C-Reactive Protein NT-Pro-B Natriuret Pep Total Protein Albumin Arterial Blood Glucose Urine WBC (Auto) Urine Creatinine 12/19/19 12/19/19 12/19/19 04:45 04:45 05:35 WBC RBC Hgb Hct MCHC RDW MCV MCH Lymph % (Auto) [place] % (Auto) [place] # Eos # Lymph # (Auto) [place] # (Auto) Eos # (Auto) Seg Neutrophils % Seg Neuts % (Manual) Baso # (Auto) Lymphocytes % (Manual) Monocytes % (Manual) Eosinophils % (Manual) Basophils % (Manual) Seg Neutrophils # Seg Neutrophils # Man Lymphocytes # (Manual) Monocytes # (Manual) Eosinophils # (Manual) Nucleated RBC % Basophils # (Manual) PT INR APTT Heparin Anti-Xa Level 0.17 L ABG pH POC ABG pO2 ABG pO2 ABG HCO3 ABG O2 Saturation ABG Base Excess POC ABG pCO2 ABG Hemoglobin ABG Oxyhemoglobin ABG Glucose Oxyhemoglobin Sodium Potassium Chloride Carbon Dioxide BUN Creatinine Glucose POC Glucose 120 H Lactic Acid Calcium Phosphorus Magnesium AST ALT Lactate Dehydrogenase 228 H CK-MB (CK-2) C-Reactive Protein NT-Pro-B Natriuret Pep Total Protein Albumin Arterial Blood Glucose Urine WBC (Auto) Urine Creatinine 12/19/19 12/19/19 12/19/19 09:20 11:32 11:32 WBC 14.6 H RBC 3.08 L Hgb 9.0 L Hct 26.8 L MCHC RDW 15.9 H MCV MCH Lymph % (Auto) [place] % (Auto) [place] # Eos # Lymph # (Auto) [place] # (Auto) Eos # (Auto) Seg Neutrophils % Seg Neuts % (Manual) 82.0 H Baso # (Auto) Lymphocytes % (Manual) 10.0 L Monocytes % (Manual) Eosinophils % (Manual) Basophils % (Manual) Seg Neutrophils # Seg Neutrophils # Man 12.0 H Lymphocytes # (Manual) Monocytes # (Manual) 0.9 H Eosinophils # (Manual) Nucleated RBC % 1.0 H Basophils # (Manual) PT INR APTT Heparin Anti-Xa Level ABG pH 7.451 H POC ABG pO2 ABG pO2 62.6 L ABG HCO3 33.2 H ABG O2 Saturation 93.8 L ABG Base Excess 8.3 H POC ABG pCO2 ABG Hemoglobin 8.3 L ABG Oxyhemoglobin ABG Glucose Oxyhemoglobin 91.9 L Sodium Potassium Chloride 95.0 L Carbon Dioxide 33 H BUN 22 H Creatinine 0.6 L Glucose 150 H POC Glucose Lactic Acid Calcium Phosphorus Magnesium AST ALT Lactate Dehydrogenase CK-MB (CK-2) C-Reactive Protein NT-Pro-B Natriuret Pep Total Protein 6.2 L Albumin 2.4 L Arterial Blood Glucose Urine WBC (Auto) Urine Creatinine 12/19/19 12/19/19 12/20/19 11:56 18:17 00:09 WBC RBC Hgb Hct MCHC RDW MCV MCH Lymph % (Auto) [place] % (Auto) [place] # Eos # Lymph # (Auto) [place] # (Auto) Eos # (Auto) Seg Neutrophils % Seg Neuts % (Manual) Baso # (Auto) Lymphocytes % (Manual) Monocytes % (Manual) Eosinophils % (Manual) Basophils % (Manual) Seg Neutrophils # Seg Neutrophils # Man Lymphocytes # (Manual) Monocytes # (Manual) Eosinophils # (Manual) Nucleated RBC % Basophils # (Manual) PT INR APTT Heparin Anti-Xa Level ABG pH POC ABG pO2 ABG pO2 ABG HCO3 ABG O2 Saturation ABG Base Excess POC ABG pCO2 ABG Hemoglobin ABG Oxyhemoglobin ABG Glucose Oxyhemoglobin Sodium Potassium Chloride Carbon Dioxide BUN Creatinine Glucose POC Glucose 156 H 156 H 155 H Lactic Acid Calcium Phosphorus Magnesium AST ALT Lactate Dehydrogenase CK-MB (CK-2) C-Reactive Protein NT-Pro-B Natriuret Pep Total Protein Albumin Arterial Blood Glucose Urine WBC (Auto) Urine Creatinine 12/20/19 12/20/19 12/20/19 05:26 06:02 18:17 WBC RBC Hgb Hct MCHC RDW MCV MCH Lymph % (Auto) [place] % (Auto) [place] # Eos # Lymph # (Auto) [place] # (Auto) Eos # (Auto) Seg Neutrophils % Seg Neuts % (Manual) Baso # (Auto) Lymphocytes % (Manual) Monocytes % (Manual) Eosinophils % (Manual) Basophils % (Manual) Seg Neutrophils # Seg Neutrophils # Man Lymphocytes # (Manual) Monocytes # (Manual) Eosinophils # (Manual) Nucleated RBC % Basophils # (Manual) PT INR APTT Heparin Anti-Xa Level 0.19 L ABG pH POC ABG pO2 ABG pO2 ABG HCO3 ABG O2 Saturation ABG Base Excess POC ABG pCO2 ABG Hemoglobin ABG Oxyhemoglobin ABG Glucose Oxyhemoglobin Sodium Potassium Chloride Carbon Dioxide BUN Creatinine Glucose POC Glucose 137 H 128 H Lactic Acid Calcium Phosphorus Magnesium AST ALT Lactate Dehydrogenase CK-MB (CK-2) C-Reactive Protein NT-Pro-B Natriuret Pep Total Protein Albumin Arterial Blood Glucose Urine WBC (Auto) Urine Creatinine 12/20/19 12/21/19 12/21/19 23:34 05:31 05:31 WBC 12.7 H RBC 3.09 L Hgb 8.9 L Hct 27.4 L MCHC RDW 15.8 H MCV MCH Lymph % (Auto) 12.1 L [place] % (Auto) 7.8 H [place] # Eos # Lymph # (Auto) [place] # (Auto) 1.0 H Eos # (Auto) Seg Neutrophils % 77.1 H Seg Neuts % (Manual) Baso # (Auto) Lymphocytes % (Manual) Monocytes % (Manual) Eosinophils % (Manual) Basophils % (Manual) Seg Neutrophils # 9.8 H Seg Neutrophils # Man Lymphocytes # (Manual) Monocytes # (Manual) Eosinophils # (Manual) Nucleated RBC % Basophils # (Manual) PT INR APTT Heparin Anti-Xa Level ABG pH POC ABG pO2 ABG pO2 ABG HCO3 ABG O2 Saturation ABG Base Excess POC ABG pCO2 ABG Hemoglobin ABG Oxyhemoglobin ABG Glucose Oxyhemoglobin Sodium Potassium Chloride 96.9 L Carbon Dioxide 37 H BUN 27 H Creatinine 0.7 L Glucose 140 H POC Glucose 145 H Lactic Acid Calcium Phosphorus Magnesium AST ALT Lactate Dehydrogenase CK-MB (CK-2) C-Reactive Protein NT-Pro-B Natriuret Pep Total Protein Albumin Arterial Blood Glucose Urine WBC (Auto) Urine Creatinine 12/21/19 12/21/19 12/21/19 05:38 10:13 11:51 WBC RBC Hgb Hct MCHC RDW MCV MCH Lymph % (Auto) [place] % (Auto) [place] # Eos # Lymph # (Auto) [place] # (Auto) Eos # (Auto) Seg Neutrophils % Seg Neuts % (Manual) Baso # (Auto) Lymphocytes % (Manual) Monocytes % (Manual) Eosinophils % (Manual) Basophils % (Manual) Seg Neutrophils # Seg Neutrophils # Man Lymphocytes # (Manual) Monocytes # (Manual) Eosinophils # (Manual) Nucleated RBC % Basophils # (Manual) PT INR APTT 23.9 L Heparin Anti-Xa Level < 0.10 L ABG pH POC ABG pO2 ABG pO2 ABG HCO3 ABG O2 Saturation ABG Base Excess POC ABG pCO2 ABG Hemoglobin ABG Oxyhemoglobin ABG Glucose Oxyhemoglobin Sodium Potassium Chloride Carbon Dioxide BUN Creatinine Glucose POC Glucose 151 H 145 H Lactic Acid Calcium Phosphorus Magnesium AST ALT Lactate Dehydrogenase CK-MB (CK-2) C-Reactive Protein NT-Pro-B Natriuret Pep Total Protein Albumin Arterial Blood Glucose Urine WBC (Auto) Urine Creatinine 12/21/19 12/22/19 12/22/19 17:16 00:01 01:33 WBC RBC Hgb Hct MCHC RDW MCV MCH Lymph % (Auto) [place] % (Auto) [place] # Eos # Lymph # (Auto) [place] # (Auto) Eos # (Auto) Seg Neutrophils % Seg Neuts % (Manual) Baso # (Auto) Lymphocytes % (Manual) Monocytes % (Manual) Eosinophils % (Manual) Basophils % (Manual) Seg Neutrophils # Seg Neutrophils # Man Lymphocytes # (Manual) Monocytes # (Manual) Eosinophils # (Manual) Nucleated RBC % Basophils # (Manual) PT INR APTT Heparin Anti-Xa Level 0.10 L ABG pH POC ABG pO2 ABG pO2 ABG HCO3 ABG O2 Saturation ABG Base Excess POC ABG pCO2 ABG Hemoglobin ABG Oxyhemoglobin ABG Glucose Oxyhemoglobin Sodium Potassium Chloride Carbon Dioxide BUN Creatinine Glucose POC Glucose 167 H 179 H Lactic Acid Calcium Phosphorus Magnesium AST ALT Lactate Dehydrogenase CK-MB (CK-2) C-Reactive Protein NT-Pro-B Natriuret Pep Total Protein Albumin Arterial Blood Glucose Urine WBC (Auto) Urine Creatinine 12/22/19 12/22/19 12/22/19 03:22 05:10 05:10 WBC 13.8 H RBC 3.20 L Hgb 8.9 L Hct 28.1 L MCHC RDW 15.9 H MCV MCH Lymph % (Auto) [place] % (Auto) [place] # Eos # Lymph # (Auto) [place] # (Auto) Eos # (Auto) Seg Neutrophils % Seg Neuts % (Manual) Baso # (Auto) Lymphocytes % (Manual) Monocytes % (Manual) Eosinophils % (Manual) Basophils % (Manual) Seg Neutrophils # Seg Neutrophils # Man Lymphocytes # (Manual) Monocytes # (Manual) Eosinophils # (Manual) Nucleated RBC % Basophils # (Manual) PT INR APTT Heparin Anti-Xa Level ABG pH POC ABG pO2 52.3 L ABG pO2 ABG HCO3 ABG O2 Saturation ABG Base Excess POC ABG pCO2 52.9 H ABG Hemoglobin 10.7 L ABG Oxyhemoglobin 84 L ABG Glucose Oxyhemoglobin Sodium Potassium Chloride 96.6 L Carbon Dioxide BUN 25 H Creatinine 0.7 L Glucose 129 H POC Glucose Lactic Acid Calcium Phosphorus Magnesium AST ALT Lactate Dehydrogenase CK-MB (CK-2) C-Reactive Protein NT-Pro-B Natriuret Pep Total Protein Albumin Arterial Blood Glucose Urine WBC (Auto) Urine Creatinine 12/22/19 12/22/19 12/22/19 05:18 12:32 12:43 WBC RBC Hgb Hct MCHC RDW MCV MCH Lymph % (Auto) [place] % (Auto) [place] # Eos # Lymph # (Auto) [place] # (Auto) Eos # (Auto) Seg Neutrophils % Seg Neuts % (Manual) Baso # (Auto) Lymphocytes % (Manual) Monocytes % (Manual) Eosinophils % (Manual) Basophils % (Manual) Seg Neutrophils # Seg Neutrophils # Man Lymphocytes # (Manual) Monocytes # (Manual) Eosinophils # (Manual) Nucleated RBC % Basophils # (Manual) PT INR APTT Heparin Anti-Xa Level 0.18 L ABG pH POC ABG pO2 ABG pO2 ABG HCO3 ABG O2 Saturation ABG Base Excess POC ABG pCO2 ABG Hemoglobin ABG Oxyhemoglobin ABG Glucose Oxyhemoglobin Sodium Potassium Chloride Carbon Dioxide BUN Creatinine Glucose POC Glucose 131 H 208 H Lactic Acid Calcium Phosphorus Magnesium AST ALT Lactate Dehydrogenase CK-MB (CK-2) C-Reactive Protein NT-Pro-B Natriuret Pep Total Protein Albumin Arterial Blood Glucose Urine WBC (Auto) Urine Creatinine 12/22/19 12/22/19 12/23/19 17:44 23:20 03:51 WBC 15.2 H RBC 3.43 L Hgb 9.6 L Hct 30.3 L MCHC RDW 15.9 H MCV MCH Lymph % (Auto) [place] % (Auto) [place] # Eos # Lymph # (Auto) [place] # (Auto) Eos # (Auto) Seg Neutrophils % Seg Neuts % (Manual) Baso # (Auto) Lymphocytes % (Manual) Monocytes % (Manual) Eosinophils % (Manual) Basophils % (Manual) Seg Neutrophils # Seg Neutrophils # Man Lymphocytes # (Manual) Monocytes # (Manual) Eosinophils # (Manual) Nucleated RBC % Basophils # (Manual) PT INR APTT Heparin Anti-Xa Level ABG pH POC ABG pO2 ABG pO2 ABG HCO3 ABG O2 Saturation ABG Base Excess POC ABG pCO2 ABG Hemoglobin ABG Oxyhemoglobin ABG Glucose Oxyhemoglobin Sodium Potassium Chloride Carbon Dioxide BUN Creatinine Glucose POC Glucose 209 H 119 H Lactic Acid Calcium Phosphorus Magnesium AST ALT Lactate Dehydrogenase CK-MB (CK-2) C-Reactive Protein NT-Pro-B Natriuret Pep Total Protein Albumin Arterial Blood Glucose Urine WBC (Auto) Urine Creatinine 12/23/19 12/23/19 12/23/19 03:51 05:31 12:09 WBC RBC Hgb Hct MCHC RDW MCV MCH Lymph % (Auto) [place] % (Auto) [place] # Eos # Lymph # (Auto) [place] # (Auto) Eos # (Auto) Seg Neutrophils % Seg Neuts % (Manual) Baso # (Auto) Lymphocytes % (Manual) Monocytes % (Manual) Eosinophils % (Manual) Basophils % (Manual) Seg Neutrophils # Seg Neutrophils # Man Lymphocytes # (Manual) Monocytes # (Manual) Eosinophils # (Manual) Nucleated RBC % Basophils # (Manual) PT INR APTT Heparin Anti-Xa Level ABG pH POC ABG pO2 ABG pO2 ABG HCO3 ABG O2 Saturation ABG Base Excess POC ABG pCO2 ABG Hemoglobin ABG Oxyhemoglobin ABG Glucose Oxyhemoglobin Sodium Potassium Chloride 97.2 L Carbon Dioxide 31 H BUN 23 H Creatinine 0.6 L Glucose 153 H POC Glucose 149 H 144 H Lactic Acid Calcium Phosphorus Magnesium AST ALT Lactate Dehydrogenase CK-MB (CK-2) C-Reactive Protein NT-Pro-B Natriuret Pep Total Protein Albumin Arterial Blood Glucose Urine WBC (Auto) Urine Creatinine 12/23/19 12/23/19 12/23/19 15:30 17:49 23:31 WBC RBC Hgb Hct MCHC RDW MCV MCH Lymph % (Auto) [place] % (Auto) [place] # Eos # Lymph # (Auto) [place] # (Auto) Eos # (Auto) Seg Neutrophils % Seg Neuts % (Manual) Baso # (Auto) Lymphocytes % (Manual) Monocytes % (Manual) Eosinophils % (Manual) Basophils % (Manual) Seg Neutrophils # Seg Neutrophils # Man Lymphocytes # (Manual) Monocytes # (Manual) Eosinophils # (Manual) Nucleated RBC % Basophils # (Manual) PT INR APTT Heparin Anti-Xa Level 0.21 L ABG pH POC ABG pO2 ABG pO2 ABG HCO3 ABG O2 Saturation ABG Base Excess POC ABG pCO2 ABG Hemoglobin ABG Oxyhemoglobin ABG Glucose Oxyhemoglobin Sodium Potassium Chloride Carbon Dioxide BUN Creatinine Glucose POC Glucose 192 H 151 H Lactic Acid Calcium Phosphorus Magnesium AST ALT Lactate Dehydrogenase CK-MB (CK-2) C-Reactive Protein NT-Pro-B Natriuret Pep Total Protein Albumin Arterial Blood Glucose Urine WBC (Auto) Urine Creatinine 12/24/19 12/24/19 12/24/19 05:34 12:13 16:50 WBC RBC Hgb Hct MCHC RDW MCV MCH Lymph % (Auto) [place] % (Auto) [place] # Eos # Lymph # (Auto) [place] # (Auto) Eos # (Auto) Seg Neutrophils % Seg Neuts % (Manual) Baso # (Auto) Lymphocytes % (Manual) Monocytes % (Manual) Eosinophils % (Manual) Basophils % (Manual) Seg Neutrophils # Seg Neutrophils # Man Lymphocytes # (Manual) Monocytes # (Manual) Eosinophils # (Manual) Nucleated RBC % Basophils # (Manual) PT INR APTT Heparin Anti-Xa Level 0.16 L ABG pH POC ABG pO2 ABG pO2 ABG HCO3 ABG O2 Saturation ABG Base Excess POC ABG pCO2 ABG Hemoglobin ABG Oxyhemoglobin ABG Glucose Oxyhemoglobin Sodium Potassium Chloride Carbon Dioxide BUN Creatinine Glucose POC Glucose 145 H 124 H Lactic Acid Calcium Phosphorus Magnesium AST ALT Lactate Dehydrogenase CK-MB (CK-2) C-Reactive Protein NT-Pro-B Natriuret Pep Total Protein Albumin Arterial Blood Glucose Urine WBC (Auto) Urine Creatinine 12/24/19 12/25/19 12/25/19 17:53 00:14 04:18 WBC 12.9 H RBC 3.30 L Hgb 9.1 L Hct 28.8 L MCHC RDW 16.4 H MCV MCH Lymph % (Auto) [place] % (Auto) 7.8 H [place] # Eos # Lymph # (Auto) [place] # (Auto) 1.0 H Eos # (Auto) Seg Neutrophils % 75.5 H Seg Neuts % (Manual) Baso # (Auto) Lymphocytes % (Manual) Monocytes % (Manual) Eosinophils % (Manual) Basophils % (Manual) Seg Neutrophils # 9.7 H Seg Neutrophils # Man Lymphocytes # (Manual) Monocytes # (Manual) Eosinophils # (Manual) Nucleated RBC % Basophils # (Manual) PT INR APTT Heparin Anti-Xa Level ABG pH POC ABG pO2 ABG pO2 ABG HCO3 ABG O2 Saturation ABG Base Excess POC ABG pCO2 ABG Hemoglobin ABG Oxyhemoglobin ABG Glucose Oxyhemoglobin Sodium Potassium Chloride Carbon Dioxide BUN Creatinine Glucose POC Glucose 164 H 148 H Lactic Acid Calcium Phosphorus Magnesium AST ALT Lactate Dehydrogenase CK-MB (CK-2) C-Reactive Protein NT-Pro-B Natriuret Pep Total Protein Albumin Arterial Blood Glucose Urine WBC (Auto) Urine Creatinine 12/25/19 12/25/19 12/25/19 04:18 05:38 11:44 WBC RBC Hgb Hct MCHC RDW MCV MCH Lymph % (Auto) [place] % (Auto) [place] # Eos # Lymph # (Auto) [place] # (Auto) Eos # (Auto) Seg Neutrophils % Seg Neuts % (Manual) Baso # (Auto) Lymphocytes % (Manual) Monocytes % (Manual) Eosinophils % (Manual) Basophils % (Manual) Seg Neutrophils # Seg Neutrophils # Man Lymphocytes # (Manual) Monocytes # (Manual) Eosinophils # (Manual) Nucleated RBC % Basophils # (Manual) PT INR APTT Heparin Anti-Xa Level ABG pH POC ABG pO2 ABG pO2 ABG HCO3 ABG O2 Saturation ABG Base Excess POC ABG pCO2 ABG Hemoglobin ABG Oxyhemoglobin ABG Glucose Oxyhemoglobin Sodium Potassium Chloride Carbon Dioxide 33 H BUN 27 H Creatinine 0.6 L Glucose 132 H POC Glucose 152 H 166 H Lactic Acid Calcium Phosphorus Magnesium AST ALT Lactate Dehydrogenase CK-MB (CK-2) C-Reactive Protein NT-Pro-B Natriuret Pep Total Protein Albumin Arterial Blood Glucose Urine WBC (Auto) Urine Creatinine 12/25/19 12/26/19 12/26/19 18:29 00:17 00:18 WBC RBC Hgb Hct MCHC RDW MCV MCH Lymph % (Auto) [place] % (Auto) [place] # Eos # Lymph # (Auto) [place] # (Auto) Eos # (Auto) Seg Neutrophils % Seg Neuts % (Manual) Baso # (Auto) Lymphocytes % (Manual) Monocytes % (Manual) Eosinophils % (Manual) Basophils % (Manual) Seg Neutrophils # Seg Neutrophils # Man Lymphocytes # (Manual) Monocytes # (Manual) Eosinophils # (Manual) Nucleated RBC % Basophils # (Manual) PT INR APTT Heparin Anti-Xa Level ABG pH POC ABG pO2 ABG pO2 ABG HCO3 ABG O2 Saturation ABG Base Excess POC ABG pCO2 ABG Hemoglobin ABG Oxyhemoglobin ABG Glucose Oxyhemoglobin Sodium Potassium Chloride 97.8 L Carbon Dioxide BUN 25 H Creatinine 0.6 L Glucose 140 H POC Glucose 194 H 151 H Lactic Acid Calcium Phosphorus Magnesium AST ALT Lactate Dehydrogenase CK-MB (CK-2) C-Reactive Protein NT-Pro-B Natriuret Pep Total Protein Albumin Arterial Blood Glucose Urine WBC (Auto) Urine Creatinine 12/26/19 12/26/19 12/26/19 05:36 11:41 17:50 WBC RBC Hgb Hct MCHC RDW MCV MCH Lymph % (Auto) [place] % (Auto) [place] # Eos # Lymph # (Auto) [place] # (Auto) Eos # (Auto) Seg Neutrophils % Seg Neuts % (Manual) Baso # (Auto) Lymphocytes % (Manual) Monocytes % (Manual) Eosinophils % (Manual) Basophils % (Manual) Seg Neutrophils # Seg Neutrophils # Man Lymphocytes # (Manual) Monocytes # (Manual) Eosinophils # (Manual) Nucleated RBC % Basophils # (Manual) PT INR APTT Heparin Anti-Xa Level ABG pH POC ABG pO2 ABG pO2 ABG HCO3 ABG O2 Saturation ABG Base Excess POC ABG pCO2 ABG Hemoglobin ABG Oxyhemoglobin ABG Glucose Oxyhemoglobin Sodium Potassium Chloride Carbon Dioxide BUN Creatinine Glucose POC Glucose 156 H 148 H 139 H Lactic Acid Calcium Phosphorus Magnesium AST ALT Lactate Dehydrogenase CK-MB (CK-2) C-Reactive Protein NT-Pro-B Natriuret Pep Total Protein Albumin Arterial Blood Glucose Urine WBC (Auto) Urine Creatinine 12/26/19 12/27/19 12/27/19 23:19 05:34 12:02 WBC RBC Hgb Hct MCHC RDW MCV MCH Lymph % (Auto) [place] % (Auto) [place] # Eos # Lymph # (Auto) [place] # (Auto) Eos # (Auto) Seg Neutrophils % Seg Neuts % (Manual) Baso # (Auto) Lymphocytes % (Manual) Monocytes % (Manual) Eosinophils % (Manual) Basophils % (Manual) Seg Neutrophils # Seg Neutrophils # Man Lymphocytes # (Manual) Monocytes # (Manual) Eosinophils # (Manual) Nucleated RBC % Basophils # (Manual) PT INR APTT Heparin Anti-Xa Level ABG pH POC ABG pO2 ABG pO2 ABG HCO3 ABG O2 Saturation ABG Base Excess POC ABG pCO2 ABG Hemoglobin ABG Oxyhemoglobin ABG Glucose Oxyhemoglobin Sodium Potassium Chloride Carbon Dioxide BUN Creatinine Glucose POC Glucose 161 H 145 H 157 H Lactic Acid Calcium Phosphorus Magnesium AST ALT Lactate Dehydrogenase CK-MB (CK-2) C-Reactive Protein NT-Pro-B Natriuret Pep Total Protein Albumin Arterial Blood Glucose Urine WBC (Auto) Urine Creatinine 12/27/19 12/27/19 12/27/19 17:35 20:11 23:00 WBC RBC Hgb Hct MCHC RDW MCV MCH Lymph % (Auto) [place] % (Auto) [place] # Eos # Lymph # (Auto) [place] # (Auto) Eos # (Auto) Seg Neutrophils % Seg Neuts % (Manual) Baso # (Auto) Lymphocytes % (Manual) Monocytes % (Manual) Eosinophils % (Manual) Basophils % (Manual) Seg Neutrophils # Seg Neutrophils # Man Lymphocytes # (Manual) Monocytes # (Manual) Eosinophils # (Manual) Nucleated RBC % Basophils # (Manual) PT INR APTT Heparin Anti-Xa Level 0.19 L ABG pH POC ABG pO2 ABG pO2 ABG HCO3 ABG O2 Saturation ABG Base Excess POC ABG pCO2 ABG Hemoglobin ABG Oxyhemoglobin ABG Glucose Oxyhemoglobin Sodium Potassium Chloride Carbon Dioxide BUN Creatinine Glucose POC Glucose 158 H 155 H Lactic Acid Calcium Phosphorus Magnesium AST ALT Lactate Dehydrogenase CK-MB (CK-2) C-Reactive Protein NT-Pro-B Natriuret Pep Total Protein Albumin Arterial Blood Glucose Urine WBC (Auto) Urine Creatinine 12/27/19 12/28/19 12/28/19 23:45 02:41 02:41 WBC 13.0 H RBC 3.48 L Hgb 9.5 L Hct 30.6 L MCHC 31 L RDW 16.6 H MCV MCH 27 L Lymph % (Auto) 13.0 L [place] % (Auto) 8.0 H [place] # Eos # Lymph # (Auto) [place] # (Auto) 1.0 H Eos # (Auto) Seg Neutrophils % 76.3 H Seg Neuts % (Manual) Baso # (Auto) Lymphocytes % (Manual) Monocytes % (Manual) Eosinophils % (Manual) Basophils % (Manual) Seg Neutrophils # 9.9 H Seg Neutrophils # Man Lymphocytes # (Manual) Monocytes # (Manual) Eosinophils # (Manual) Nucleated RBC % Basophils # (Manual) PT INR APTT Heparin Anti-Xa Level ABG pH POC ABG pO2 ABG pO2 ABG HCO3 ABG O2 Saturation ABG Base Excess POC ABG pCO2 ABG Hemoglobin ABG Oxyhemoglobin ABG Glucose Oxyhemoglobin Sodium Potassium Chloride Carbon Dioxide BUN 22 H Creatinine 0.6 L Glucose 101 H POC Glucose 130 H Lactic Acid Calcium Phosphorus Magnesium AST ALT Lactate Dehydrogenase CK-MB (CK-2) C-Reactive Protein NT-Pro-B Natriuret Pep Total Protein Albumin Arterial Blood Glucose Urine WBC (Auto) Urine Creatinine 12/28/19 12/28/19 12/28/19 06:00 12:34 18:13 WBC RBC Hgb Hct MCHC RDW MCV MCH Lymph % (Auto) [place] % (Auto) [place] # Eos # Lymph # (Auto) [place] # (Auto) Eos # (Auto) Seg Neutrophils % Seg Neuts % (Manual) Baso # (Auto) Lymphocytes % (Manual) Monocytes % (Manual) Eosinophils % (Manual) Basophils % (Manual) Seg Neutrophils # Seg Neutrophils # Man Lymphocytes # (Manual) Monocytes # (Manual) Eosinophils # (Manual) Nucleated RBC % Basophils # (Manual) PT INR APTT Heparin Anti-Xa Level ABG pH POC ABG pO2 ABG pO2 ABG HCO3 ABG O2 Saturation ABG Base Excess POC ABG pCO2 ABG Hemoglobin ABG Oxyhemoglobin ABG Glucose Oxyhemoglobin Sodium Potassium Chloride Carbon Dioxide BUN Creatinine Glucose POC Glucose 150 H 161 H 128 H Lactic Acid Calcium Phosphorus Magnesium AST ALT Lactate Dehydrogenase CK-MB (CK-2) C-Reactive Protein NT-Pro-B Natriuret Pep Total Protein Albumin Arterial Blood Glucose Urine WBC (Auto) Urine Creatinine 12/28/19 12/29/19 12/29/19 23:36 05:21 11:40 WBC RBC Hgb Hct MCHC RDW MCV MCH Lymph % (Auto) [place] % (Auto) [place] # Eos # Lymph # (Auto) [place] # (Auto) Eos # (Auto) Seg Neutrophils % Seg Neuts % (Manual) Baso # (Auto) Lymphocytes % (Manual) Monocytes % (Manual) Eosinophils % (Manual) Basophils % (Manual) Seg Neutrophils # Seg Neutrophils # Man Lymphocytes # (Manual) Monocytes # (Manual) Eosinophils # (Manual) Nucleated RBC % Basophils # (Manual) PT INR APTT Heparin Anti-Xa Level ABG pH POC ABG pO2 ABG pO2 ABG HCO3 ABG O2 Saturation ABG Base Excess POC ABG pCO2 ABG Hemoglobin ABG Oxyhemoglobin ABG Glucose Oxyhemoglobin Sodium Potassium Chloride Carbon Dioxide BUN Creatinine Glucose POC Glucose 137 H 136 H 166 H Lactic Acid Calcium Phosphorus Magnesium AST ALT Lactate Dehydrogenase CK-MB (CK-2) C-Reactive Protein NT-Pro-B Natriuret Pep Total Protein Albumin Arterial Blood Glucose Urine WBC (Auto) Urine Creatinine 12/29/19 12/29/19 12/29/19 17:23 19:21 23:38 WBC RBC Hgb Hct MCHC RDW MCV MCH Lymph % (Auto) [place] % (Auto) [place] # Eos # Lymph # (Auto) [place] # (Auto) Eos # (Auto) Seg Neutrophils % Seg Neuts % (Manual) Baso # (Auto) Lymphocytes % (Manual) Monocytes % (Manual) Eosinophils % (Manual) Basophils % (Manual) Seg Neutrophils # Seg Neutrophils # Man Lymphocytes # (Manual) Monocytes # (Manual) Eosinophils # (Manual) Nucleated RBC % Basophils # (Manual) PT INR APTT Heparin Anti-Xa Level 0.20 L ABG pH POC ABG pO2 ABG pO2 ABG HCO3 ABG O2 Saturation ABG Base Excess POC ABG pCO2 ABG Hemoglobin ABG Oxyhemoglobin ABG Glucose Oxyhemoglobin Sodium Potassium Chloride Carbon Dioxide BUN Creatinine Glucose POC Glucose 144 H 141 H Lactic Acid Calcium Phosphorus Magnesium AST ALT Lactate Dehydrogenase CK-MB (CK-2) C-Reactive Protein NT-Pro-B Natriuret Pep Total Protein Albumin Arterial Blood Glucose Urine WBC (Auto) Urine Creatinine 12/30/19 12/30/19 12/30/19 03:58 03:58 04:59 WBC RBC 3.54 L Hgb 9.8 L Hct 30.7 L MCHC RDW 16.8 H MCV MCH Lymph % (Auto) [place] % (Auto) [place] # Eos # Lymph # (Auto) [place] # (Auto) Eos # (Auto) Seg Neutrophils % Seg Neuts % (Manual) Baso # (Auto) Lymphocytes % (Manual) Monocytes % (Manual) Eosinophils % (Manual) Basophils % (Manual) Seg Neutrophils # Seg Neutrophils # Man Lymphocytes # (Manual) Monocytes # (Manual) Eosinophils # (Manual) Nucleated RBC % Basophils # (Manual) PT INR APTT Heparin Anti-Xa Level ABG pH POC ABG pO2 ABG pO2 ABG HCO3 29.8 H ABG O2 Saturation ABG Base Excess 4.8 H POC ABG pCO2 ABG Hemoglobin 11.2 L ABG Oxyhemoglobin ABG Glucose Oxyhemoglobin 93.8 L Sodium Potassium Chloride 97.8 L Carbon Dioxide BUN 26 H Creatinine Glucose 168 H POC Glucose Lactic Acid Calcium Phosphorus Magnesium AST ALT Lactate Dehydrogenase CK-MB (CK-2) C-Reactive Protein NT-Pro-B Natriuret Pep Total Protein Albumin Arterial Blood Glucose Urine WBC (Auto) Urine Creatinine 12/30/19 12/30/19 12/30/19 05:45 11:34 17:28 WBC RBC Hgb Hct MCHC RDW MCV MCH Lymph % (Auto) [place] % (Auto) [place] # Eos # Lymph # (Auto) [place] # (Auto) Eos # (Auto) Seg Neutrophils % Seg Neuts % (Manual) Baso # (Auto) Lymphocytes % (Manual) Monocytes % (Manual) Eosinophils % (Manual) Basophils % (Manual) Seg Neutrophils # Seg Neutrophils # Man Lymphocytes # (Manual) Monocytes # (Manual) Eosinophils # (Manual) Nucleated RBC % Basophils # (Manual) PT INR APTT Heparin Anti-Xa Level ABG pH POC ABG pO2 ABG pO2 ABG HCO3 ABG O2 Saturation ABG Base Excess POC ABG pCO2 ABG Hemoglobin ABG Oxyhemoglobin ABG Glucose Oxyhemoglobin Sodium Potassium Chloride Carbon Dioxide BUN Creatinine Glucose POC Glucose 163 H 180 H 150 H Lactic Acid Calcium Phosphorus Magnesium AST ALT Lactate Dehydrogenase CK-MB (CK-2) C-Reactive Protein NT-Pro-B Natriuret Pep Total Protein Albumin Arterial Blood Glucose Urine WBC (Auto) Urine Creatinine 12/30/19 12/31/19 12/31/19 23:43 04:55 05:07 WBC RBC Hgb Hct MCHC RDW MCV MCH Lymph % (Auto) [place] % (Auto) [place] # Eos # Lymph # (Auto) [place] # (Auto) Eos # (Auto) Seg Neutrophils % Seg Neuts % (Manual) Baso # (Auto) Lymphocytes % (Manual) Monocytes % (Manual) Eosinophils % (Manual) Basophils % (Manual) Seg Neutrophils # Seg Neutrophils # Man Lymphocytes # (Manual) Monocytes # (Manual) Eosinophils # (Manual) Nucleated RBC % Basophils # (Manual) PT INR APTT Heparin Anti-Xa Level ABG pH POC ABG pO2 ABG pO2 ABG HCO3 ABG O2 Saturation ABG Base Excess POC ABG pCO2 ABG Hemoglobin ABG Oxyhemoglobin ABG Glucose Oxyhemoglobin Sodium Potassium 5.6 H D Chloride Carbon Dioxide BUN 33 H Creatinine Glucose 131 H POC Glucose 142 H 134 H Lactic Acid Calcium Phosphorus Magnesium AST ALT Lactate Dehydrogenase CK-MB (CK-2) C-Reactive Protein NT-Pro-B Natriuret Pep Total Protein Albumin Arterial Blood Glucose Urine WBC (Auto) Urine Creatinine 12/31/19 12/31/19 12/31/19 11:30 17:19 17:36 WBC RBC Hgb Hct MCHC RDW MCV MCH Lymph % (Auto) [place] % (Auto) [place] # Eos # Lymph # (Auto) [place] # (Auto) Eos # (Auto) Seg Neutrophils % Seg Neuts % (Manual) Baso # (Auto) Lymphocytes % (Manual) Monocytes % (Manual) Eosinophils % (Manual) Basophils % (Manual) Seg Neutrophils # Seg Neutrophils # Man Lymphocytes # (Manual) Monocytes # (Manual) Eosinophils # (Manual) Nucleated RBC % Basophils # (Manual) PT INR APTT Heparin Anti-Xa Level ABG pH POC ABG pO2 ABG pO2 ABG HCO3 ABG O2 Saturation ABG Base Excess POC ABG pCO2 ABG Hemoglobin ABG Oxyhemoglobin ABG Glucose Oxyhemoglobin Sodium Potassium Chloride Carbon Dioxide BUN 35 H Creatinine Glucose 156 H POC Glucose 158 H 181 H Lactic Acid Calcium Phosphorus Magnesium AST ALT Lactate Dehydrogenase CK-MB (CK-2) C-Reactive Protein NT-Pro-B Natriuret Pep Total Protein Albumin Arterial Blood Glucose Urine WBC (Auto) Urine Creatinine 12/31/19 12/31/19 12/31/19 18:16 19:41 21:53 WBC RBC Hgb Hct MCHC RDW MCV MCH Lymph % (Auto) [place] % (Auto) [place] # Eos # Lymph # (Auto) [place] # (Auto) Eos # (Auto) Seg Neutrophils % Seg Neuts % (Manual) Baso # (Auto) Lymphocytes % (Manual) Monocytes % (Manual) Eosinophils % (Manual) Basophils % (Manual) Seg Neutrophils # Seg Neutrophils # Man Lymphocytes # (Manual) Monocytes # (Manual) Eosinophils # (Manual) Nucleated RBC % Basophils # (Manual) PT INR APTT Heparin Anti-Xa Level 0.20 L ABG pH POC ABG pO2 ABG pO2 ABG HCO3 ABG O2 Saturation ABG Base Excess POC ABG pCO2 ABG Hemoglobin ABG Oxyhemoglobin ABG Glucose Oxyhemoglobin Sodium Potassium Chloride Carbon Dioxide BUN 34 H Creatinine Glucose 169 H POC Glucose 141 H Lactic Acid Calcium Phosphorus Magnesium AST ALT Lactate Dehydrogenase CK-MB (CK-2) C-Reactive Protein NT-Pro-B Natriuret Pep Total Protein Albumin Arterial Blood Glucose Urine WBC (Auto) Urine Creatinine 12/31/19 01/01/20 01/01/20 23:51 05:17 10:40 WBC RBC Hgb Hct MCHC RDW MCV MCH Lymph % (Auto) [place] % (Auto) [place] # Eos # Lymph # (Auto) [place] # (Auto) Eos # (Auto) Seg Neutrophils % Seg Neuts % (Manual) Baso # (Auto) Lymphocytes % (Manual) Monocytes % (Manual) Eosinophils % (Manual) Basophils % (Manual) Seg Neutrophils # Seg Neutrophils # Man Lymphocytes # (Manual) Monocytes # (Manual) Eosinophils # (Manual) Nucleated RBC % Basophils # (Manual) PT INR APTT Heparin Anti-Xa Level ABG pH POC ABG pO2 ABG pO2 ABG HCO3 ABG O2 Saturation ABG Base Excess POC ABG pCO2 ABG Hemoglobin ABG Oxyhemoglobin ABG Glucose Oxyhemoglobin Sodium Potassium Chloride Carbon Dioxide BUN 31 H Creatinine 0.7 L Glucose 137 H POC Glucose 131 H 155 H Lactic Acid Calcium Phosphorus Magnesium AST 73 H ALT 97 H Lactate Dehydrogenase CK-MB (CK-2) C-Reactive Protein NT-Pro-B Natriuret Pep 3866 H Total Protein Albumin 2.8 L Arterial Blood Glucose Urine WBC (Auto) Urine Creatinine 01/01/20 01/01/20 01/01/20 12:26 15:33 17:53 WBC 14.3 H RBC 3.35 L Hgb 9.1 L Hct 28.8 L MCHC RDW 17.0 H MCV MCH 27 L Lymph % (Auto) 7.0 L [place] % (Auto) 7.6 H [place] # Eos # Lymph # (Auto) 1.0 L [place] # (Auto) 1.1 H Eos # (Auto) Seg Neutrophils % 83.3 H Seg Neuts % (Manual) Baso # (Auto) Lymphocytes % (Manual) Monocytes % (Manual) Eosinophils % (Manual) Basophils % (Manual) Seg Neutrophils # 12.0 H Seg Neutrophils # Man Lymphocytes # (Manual) Monocytes # (Manual) Eosinophils # (Manual) Nucleated RBC % Basophils # (Manual) PT INR APTT Heparin Anti-Xa Level ABG pH POC ABG pO2 ABG pO2 ABG HCO3 ABG O2 Saturation ABG Base Excess POC ABG pCO2 ABG Hemoglobin ABG Oxyhemoglobin ABG Glucose Oxyhemoglobin Sodium Potassium Chloride Carbon Dioxide BUN Creatinine Glucose POC Glucose 128 H 128 H Lactic Acid Calcium Phosphorus Magnesium AST ALT Lactate Dehydrogenase CK-MB (CK-2) C-Reactive Protein NT-Pro-B Natriuret Pep Total Protein Albumin Arterial Blood Glucose Urine WBC (Auto) Urine Creatinine 01/01/20 01/02/20 01/02/20 23:04 05:39 07:00 WBC RBC Hgb Hct MCHC RDW MCV MCH Lymph % (Auto) [place] % (Auto) [place] # Eos # Lymph # (Auto) [place] # (Auto) Eos # (Auto) Seg Neutrophils % Seg Neuts % (Manual) Baso # (Auto) Lymphocytes % (Manual) Monocytes % (Manual) Eosinophils % (Manual) Basophils % (Manual) Seg Neutrophils # Seg Neutrophils # Man Lymphocytes # (Manual) Monocytes # (Manual) Eosinophils # (Manual) Nucleated RBC % Basophils # (Manual) PT INR APTT Heparin Anti-Xa Level 0.13 L ABG pH POC ABG pO2 ABG pO2 ABG HCO3 ABG O2 Saturation ABG Base Excess POC ABG pCO2 ABG Hemoglobin ABG Oxyhemoglobin ABG Glucose Oxyhemoglobin Sodium Potassium Chloride Carbon Dioxide BUN Creatinine Glucose POC Glucose 120 H 169 H Lactic Acid Calcium Phosphorus Magnesium AST ALT Lactate Dehydrogenase CK-MB (CK-2) C-Reactive Protein NT-Pro-B Natriuret Pep Total Protein Albumin Arterial Blood Glucose Urine WBC (Auto) Urine Creatinine 01/02/20 01/02/20 01/02/20 12:15 14:06 17:58 WBC RBC Hgb Hct MCHC RDW MCV MCH Lymph % (Auto) [place] % (Auto) [place] # Eos # Lymph # (Auto) [place] # (Auto) Eos # (Auto) Seg Neutrophils % Seg Neuts % (Manual) Baso # (Auto) Lymphocytes % (Manual) Monocytes % (Manual) Eosinophils % (Manual) Basophils % (Manual) Seg Neutrophils # Seg Neutrophils # Man Lymphocytes # (Manual) Monocytes # (Manual) Eosinophils # (Manual) Nucleated RBC % Basophils # (Manual) PT INR APTT Heparin Anti-Xa Level < 0.10 L ABG pH POC ABG pO2 ABG pO2 ABG HCO3 ABG O2 Saturation ABG Base Excess POC ABG pCO2 ABG Hemoglobin ABG Oxyhemoglobin ABG Glucose Oxyhemoglobin Sodium Potassium Chloride Carbon Dioxide BUN Creatinine Glucose POC Glucose 190 H 198 H Lactic Acid Calcium Phosphorus Magnesium AST ALT Lactate Dehydrogenase CK-MB (CK-2) C-Reactive Protein NT-Pro-B Natriuret Pep Total Protein Albumin Arterial Blood Glucose Urine WBC (Auto) Urine Creatinine 01/02/20 01/02/20 01/03/20 21:43 23:33 05:42 WBC RBC Hgb Hct MCHC RDW MCV MCH Lymph % (Auto) [place] % (Auto) [place] # Eos # Lymph # (Auto) [place] # (Auto) Eos # (Auto) Seg Neutrophils % Seg Neuts % (Manual) Baso # (Auto) Lymphocytes % (Manual) Monocytes % (Manual) Eosinophils % (Manual) Basophils % (Manual) Seg Neutrophils # Seg Neutrophils # Man Lymphocytes # (Manual) Monocytes # (Manual) Eosinophils # (Manual) Nucleated RBC % Basophils # (Manual) PT INR APTT Heparin Anti-Xa Level 0.10 L ABG pH POC ABG pO2 ABG pO2 ABG HCO3 ABG O2 Saturation ABG Base Excess POC ABG pCO2 ABG Hemoglobin ABG Oxyhemoglobin ABG Glucose Oxyhemoglobin Sodium Potassium Chloride Carbon Dioxide BUN Creatinine Glucose POC Glucose 180 H 163 H Lactic Acid Calcium Phosphorus Magnesium AST ALT Lactate Dehydrogenase CK-MB (CK-2) C-Reactive Protein NT-Pro-B Natriuret Pep Total Protein Albumin Arterial Blood Glucose Urine WBC (Auto) Urine Creatinine 01/03/20 01/03/20 01/03/20 06:50 07:25 07:45 WBC 12.1 H RBC 3.35 L Hgb 9.0 L Hct 28.9 L MCHC 31 L RDW 16.6 H MCV MCH 27 L Lymph % (Auto) 13.0 L [place] % (Auto) 8.6 H [place] # Eos # Lymph # (Auto) [place] # (Auto) 1.0 H Eos # (Auto) Seg Neutrophils % 75.9 H Seg Neuts % (Manual) Baso # (Auto) Lymphocytes % (Manual) Monocytes % (Manual) Eosinophils % (Manual) Basophils % (Manual) Seg Neutrophils # 9.2 H Seg Neutrophils # Man Lymphocytes # (Manual) Monocytes # (Manual) Eosinophils # (Manual) Nucleated RBC % Basophils # (Manual) PT INR APTT Heparin Anti-Xa Level 0.29 L ABG pH POC ABG pO2 ABG pO2 ABG HCO3 ABG O2 Saturation ABG Base Excess POC ABG pCO2 ABG Hemoglobin ABG Oxyhemoglobin ABG Glucose Oxyhemoglobin Sodium Potassium 3.3 L D Chloride Carbon Dioxide 35 H D BUN 23 H Creatinine 0.6 L Glucose 149 H POC Glucose Lactic Acid Calcium Phosphorus Magnesium AST ALT 88 H Lactate Dehydrogenase CK-MB (CK-2) C-Reactive Protein NT-Pro-B Natriuret Pep Total Protein 6.2 L Albumin 2.9 L Arterial Blood Glucose Urine WBC (Auto) Urine Creatinine 01/03/20 01/03/20 01/03/20 12:05 17:42 18:30 WBC RBC Hgb Hct MCHC RDW MCV MCH Lymph % (Auto) [place] % (Auto) [place] # Eos # Lymph # (Auto) [place] # (Auto) Eos # (Auto) Seg Neutrophils % Seg Neuts % (Manual) Baso # (Auto) Lymphocytes % (Manual) Monocytes % (Manual) Eosinophils % (Manual) Basophils % (Manual) Seg Neutrophils # Seg Neutrophils # Man Lymphocytes # (Manual) Monocytes # (Manual) Eosinophils # (Manual) Nucleated RBC % Basophils # (Manual) PT INR APTT Heparin Anti-Xa Level ABG pH POC ABG pO2 ABG pO2 70.7 L ABG HCO3 36.1 H ABG O2 Saturation 94.4 L ABG Base Excess 10.0 H POC ABG pCO2 ABG Hemoglobin 9.7 L ABG Oxyhemoglobin ABG Glucose Oxyhemoglobin 91.8 L Sodium Potassium Chloride Carbon Dioxide BUN Creatinine Glucose POC Glucose 128 H 132 H Lactic Acid Calcium Phosphorus Magnesium AST ALT Lactate Dehydrogenase CK-MB (CK-2) C-Reactive Protein NT-Pro-B Natriuret Pep Total Protein Albumin Arterial Blood Glucose Urine WBC (Auto) Urine Creatinine 01/04/20 01/04/20 01/04/20 00:10 04:26 05:23 WBC RBC Hgb Hct MCHC RDW MCV MCH Lymph % (Auto) [place] % (Auto) [place] # Eos # Lymph # (Auto) [place] # (Auto) Eos # (Auto) Seg Neutrophils % Seg Neuts % (Manual) Baso # (Auto) Lymphocytes % (Manual) Monocytes % (Manual) Eosinophils % (Manual) Basophils % (Manual) Seg Neutrophils # Seg Neutrophils # Man Lymphocytes # (Manual) Monocytes # (Manual) Eosinophils # (Manual) Nucleated RBC % Basophils # (Manual) PT INR APTT Heparin Anti-Xa Level 0.16 L ABG pH POC ABG pO2 ABG pO2 ABG HCO3 ABG O2 Saturation ABG Base Excess POC ABG pCO2 ABG Hemoglobin ABG Oxyhemoglobin ABG Glucose Oxyhemoglobin Sodium Potassium Chloride Carbon Dioxide BUN Creatinine Glucose POC Glucose 121 H 119 H Lactic Acid Calcium Phosphorus Magnesium AST ALT Lactate Dehydrogenase CK-MB (CK-2) C-Reactive Protein NT-Pro-B Natriuret Pep Total Protein Albumin Arterial Blood Glucose Urine WBC (Auto) Urine Creatinine 01/04/20 01/04/20 01/04/20 09:50 09:50 12:18 WBC 15.4 H RBC 3.30 L Hgb 8.7 L Hct 28.2 L MCHC 31 L RDW 17.0 H MCV MCH 26 L Lymph % (Auto) [place] % (Auto) 7.6 H [place] # Eos # Lymph # (Auto) [place] # (Auto) 1.2 H Eos # (Auto) Seg Neutrophils % 75.4 H Seg Neuts % (Manual) Baso # (Auto) Lymphocytes % (Manual) Monocytes % (Manual) Eosinophils % (Manual) Basophils % (Manual) Seg Neutrophils # 11.6 H Seg Neutrophils # Man Lymphocytes # (Manual) Monocytes # (Manual) Eosinophils # (Manual) Nucleated RBC % Basophils # (Manual) PT INR APTT Heparin Anti-Xa Level ABG pH POC ABG pO2 ABG pO2 ABG HCO3 ABG O2 Saturation ABG Base Excess POC ABG pCO2 ABG Hemoglobin ABG Oxyhemoglobin ABG Glucose Oxyhemoglobin Sodium 148 H Potassium 3.5 L Chloride Carbon Dioxide 32 H BUN Creatinine 0.6 L Glucose 114 H POC Glucose 111 H Lactic Acid Calcium Phosphorus Magnesium AST ALT 59 H Lactate Dehydrogenase CK-MB (CK-2) C-Reactive Protein NT-Pro-B Natriuret Pep Total Protein Albumin 2.6 L Arterial Blood Glucose Urine WBC (Auto) Urine Creatinine 01/05/20 01/05/20 01/05/20 04:05 04:05 05:19 WBC 11.7 H RBC 3.50 L Hgb 9.3 L Hct 29.9 L MCHC 31 L RDW 16.6 H MCV MCH 27 L Lymph % (Auto) 13.1 L [place] % (Auto) 9.7 H [place] # Eos # Lymph # (Auto) [place] # (Auto) 1.1 H Eos # (Auto) Seg Neutrophils % 74.0 H Seg Neuts % (Manual) Baso # (Auto) Lymphocytes % (Manual) Monocytes % (Manual) Eosinophils % (Manual) Basophils % (Manual) Seg Neutrophils # 8.6 H Seg Neutrophils # Man Lymphocytes # (Manual) Monocytes # (Manual) Eosinophils # (Manual) Nucleated RBC % Basophils # (Manual) PT INR APTT Heparin Anti-Xa Level ABG pH POC ABG pO2 ABG pO2 ABG HCO3 ABG O2 Saturation ABG Base Excess POC ABG pCO2 ABG Hemoglobin ABG Oxyhemoglobin ABG Glucose Oxyhemoglobin Sodium 151 H Potassium Chloride Carbon Dioxide 34 H BUN Creatinine 0.7 L Glucose POC Glucose 112 H Lactic Acid Calcium Phosphorus Magnesium AST ALT 59 H Lactate Dehydrogenase CK-MB (CK-2) C-Reactive Protein NT-Pro-B Natriuret Pep Total Protein 5.8 L Albumin 2.6 L Arterial Blood Glucose Urine WBC (Auto) Urine Creatinine 01/05/20 01/06/20 01/06/20 16:04 00:23 04:44 WBC RBC 3.36 L Hgb 8.9 L Hct 28.7 L MCHC 31 L RDW 16.9 H MCV MCH 26 L Lymph % (Auto) [place] % (Auto) 9.4 H [place] # Eos # Lymph # (Auto) [place] # (Auto) Eos # (Auto) Seg Neutrophils % Seg Neuts % (Manual) Baso # (Auto) Lymphocytes % (Manual) Monocytes % (Manual) Eosinophils % (Manual) Basophils % (Manual) Seg Neutrophils # Seg Neutrophils # Man Lymphocytes # (Manual) Monocytes # (Manual) Eosinophils # (Manual) Nucleated RBC % Basophils # (Manual) PT INR APTT Heparin Anti-Xa Level ABG pH POC ABG pO2 ABG pO2 ABG HCO3 ABG O2 Saturation ABG Base Excess POC ABG pCO2 ABG Hemoglobin ABG Oxyhemoglobin ABG Glucose Oxyhemoglobin Sodium 151 H Potassium 3.2 L Chloride Carbon Dioxide 34 H BUN Creatinine 0.6 L Glucose POC Glucose 107 H Lactic Acid Calcium Phosphorus Magnesium AST ALT Lactate Dehydrogenase CK-MB (CK-2) C-Reactive Protein NT-Pro-B Natriuret Pep Total Protein Albumin Arterial Blood Glucose Urine WBC (Auto) Urine Creatinine 01/06/20 01/06/20 01/06/20 04:44 05:33 12:04 WBC RBC Hgb Hct MCHC RDW MCV MCH Lymph % (Auto) [place] % (Auto) [place] # Eos # Lymph # (Auto) [place] # (Auto) Eos # (Auto) Seg Neutrophils % Seg Neuts % (Manual) Baso # (Auto) Lymphocytes % (Manual) Monocytes % (Manual) Eosinophils % (Manual) Basophils % (Manual) Seg Neutrophils # Seg Neutrophils # Man Lymphocytes # (Manual) Monocytes # (Manual) Eosinophils # (Manual) Nucleated RBC % Basophils # (Manual) PT INR APTT Heparin Anti-Xa Level ABG pH POC ABG pO2 ABG pO2 ABG HCO3 ABG O2 Saturation ABG Base Excess POC ABG pCO2 ABG Hemoglobin ABG Oxyhemoglobin ABG Glucose Oxyhemoglobin Sodium 151 H Potassium 3.4 L Chloride Carbon Dioxide 33 H BUN Creatinine 0.6 L Glucose 118 H POC Glucose 118 H 123 H Lactic Acid Calcium Phosphorus Magnesium AST ALT Lactate Dehydrogenase CK-MB (CK-2) C-Reactive Protein NT-Pro-B Natriuret Pep Total Protein 6.2 L Albumin 2.6 L Arterial Blood Glucose Urine WBC (Auto) Urine Creatinine 01/06/20 01/07/20 01/07/20 17:54 00:06 04:10 WBC RBC 3.42 L Hgb 8.9 L Hct 29.0 L MCHC 31 L RDW 17.1 H MCV MCH 26 L Lymph % (Auto) [place] % (Auto) 8.4 H [place] # Eos # Lymph # (Auto) [place] # (Auto) Eos # (Auto) Seg Neutrophils % Seg Neuts % (Manual) Baso # (Auto) Lymphocytes % (Manual) Monocytes % (Manual) Eosinophils % (Manual) Basophils % (Manual) Seg Neutrophils # Seg Neutrophils # Man Lymphocytes # (Manual) Monocytes # (Manual) Eosinophils # (Manual) Nucleated RBC % Basophils # (Manual) PT INR APTT Heparin Anti-Xa Level ABG pH POC ABG pO2 ABG pO2 ABG HCO3 ABG O2 Saturation ABG Base Excess POC ABG pCO2 ABG Hemoglobin ABG Oxyhemoglobin ABG Glucose Oxyhemoglobin Sodium Potassium Chloride Carbon Dioxide BUN Creatinine Glucose POC Glucose 112 H 126 H Lactic Acid Calcium Phosphorus Magnesium AST ALT Lactate Dehydrogenase CK-MB (CK-2) C-Reactive Protein NT-Pro-B Natriuret Pep Total Protein Albumin Arterial Blood Glucose Urine WBC (Auto) Urine Creatinine 01/07/20 01/07/20 01/07/20 04:10 05:59 12:27 WBC RBC Hgb Hct MCHC RDW MCV MCH Lymph % (Auto) [place] % (Auto) [place] # Eos # Lymph # (Auto) [place] # (Auto) Eos # (Auto) Seg Neutrophils % Seg Neuts % (Manual) Baso # (Auto) Lymphocytes % (Manual) Monocytes % (Manual) Eosinophils % (Manual) Basophils % (Manual) Seg Neutrophils # Seg Neutrophils # Man Lymphocytes # (Manual) Monocytes # (Manual) Eosinophils # (Manual) Nucleated RBC % Basophils # (Manual) PT INR APTT Heparin Anti-Xa Level ABG pH POC ABG pO2 ABG pO2 ABG HCO3 ABG O2 Saturation ABG Base Excess POC ABG pCO2 ABG Hemoglobin ABG Oxyhemoglobin ABG Glucose Oxyhemoglobin Sodium 153 H Potassium 3.5 L Chloride Carbon Dioxide 34 H BUN Creatinine 0.6 L Glucose 121 H POC Glucose 121 H 126 H Lactic Acid Calcium Phosphorus Magnesium AST ALT Lactate Dehydrogenase CK-MB (CK-2) C-Reactive Protein NT-Pro-B Natriuret Pep Total Protein 5.9 L Albumin 2.4 L Arterial Blood Glucose Urine WBC (Auto) Urine Creatinine 01/07/20 01/08/20 01/08/20 18:12 00:03 05:41 WBC RBC Hgb Hct MCHC RDW MCV MCH Lymph % (Auto) [place] % (Auto) [place] # Eos # Lymph # (Auto) [place] # (Auto) Eos # (Auto) Seg Neutrophils % Seg Neuts % (Manual) Baso # (Auto) Lymphocytes % (Manual) Monocytes % (Manual) Eosinophils % (Manual) Basophils % (Manual) Seg Neutrophils # Seg Neutrophils # Man Lymphocytes # (Manual) Monocytes # (Manual) Eosinophils # (Manual) Nucleated RBC % Basophils # (Manual) PT INR APTT Heparin Anti-Xa Level ABG pH POC ABG pO2 ABG pO2 ABG HCO3 ABG O2 Saturation ABG Base Excess POC ABG pCO2 ABG Hemoglobin ABG Oxyhemoglobin ABG Glucose Oxyhemoglobin Sodium Potassium Chloride Carbon Dioxide BUN Creatinine Glucose POC Glucose 124 H 130 H 138 H Lactic Acid Calcium Phosphorus Magnesium AST ALT Lactate Dehydrogenase CK-MB (CK-2) C-Reactive Protein NT-Pro-B Natriuret Pep Total Protein Albumin Arterial Blood Glucose Urine WBC (Auto) Urine Creatinine 01/08/20 01/08/20 01/08/20 09:28 11:42 18:21 WBC RBC Hgb Hct MCHC RDW MCV MCH Lymph % (Auto) [place] % (Auto) [place] # Eos # Lymph # (Auto) [place] # (Auto) Eos # (Auto) Seg Neutrophils % Seg Neuts % (Manual) Baso # (Auto) Lymphocytes % (Manual) Monocytes % (Manual) Eosinophils % (Manual) Basophils % (Manual) Seg Neutrophils # Seg Neutrophils # Man Lymphocytes # (Manual) Monocytes # (Manual) Eosinophils # (Manual) Nucleated RBC % Basophils # (Manual) PT INR APTT Heparin Anti-Xa Level ABG pH POC ABG pO2 ABG pO2 ABG HCO3 ABG O2 Saturation ABG Base Excess POC ABG pCO2 ABG Hemoglobin ABG Oxyhemoglobin ABG Glucose Oxyhemoglobin Sodium Potassium Chloride Carbon Dioxide BUN Creatinine Glucose POC Glucose 181 H 150 H 129 H Lactic Acid Calcium Phosphorus Magnesium AST ALT Lactate Dehydrogenase CK-MB (CK-2) C-Reactive Protein NT-Pro-B Natriuret Pep Total Protein Albumin Arterial Blood Glucose Urine WBC (Auto) Urine Creatinine 01/08/20 01/08/20 01/09/20 19:25 23:55 04:11 WBC RBC 3.43 L Hgb 8.9 L Hct 28.7 L MCHC 31 L RDW 17.6 H MCV MCH 26 L Lymph % (Auto) [place] % (Auto) 8.6 H [place] # Eos # Lymph # (Auto) [place] # (Auto) Eos # (Auto) Seg Neutrophils % Seg Neuts % (Manual) Baso # (Auto) Lymphocytes % (Manual) Monocytes % (Manual) Eosinophils % (Manual) Basophils % (Manual) Seg Neutrophils # Seg Neutrophils # Man Lymphocytes # (Manual) Monocytes # (Manual) Eosinophils # (Manual) Nucleated RBC % Basophils # (Manual) PT INR APTT Heparin Anti-Xa Level ABG pH POC ABG pO2 ABG pO2 ABG HCO3 ABG O2 Saturation ABG Base Excess POC ABG pCO2 ABG Hemoglobin ABG Oxyhemoglobin ABG Glucose Oxyhemoglobin Sodium Potassium Chloride Carbon Dioxide BUN Creatinine 0.7 L Glucose 117 H POC Glucose 132 H Lactic Acid Calcium Phosphorus Magnesium AST ALT Lactate Dehydrogenase CK-MB (CK-2) C-Reactive Protein NT-Pro-B Natriuret Pep Total Protein Albumin Arterial Blood Glucose Urine WBC (Auto) Urine Creatinine 01/09/20 01/09/20 01/09/20 04:11 05:38 22:58 WBC RBC Hgb Hct MCHC RDW MCV MCH Lymph % (Auto) [place] % (Auto) [place] # Eos # Lymph # (Auto) [place] # (Auto) Eos # (Auto) Seg Neutrophils % Seg Neuts % (Manual) Baso # (Auto) Lymphocytes % (Manual) Monocytes % (Manual) Eosinophils % (Manual) Basophils % (Manual) Seg Neutrophils # Seg Neutrophils # Man Lymphocytes # (Manual) Monocytes # (Manual) Eosinophils # (Manual) Nucleated RBC % Basophils # (Manual) PT INR APTT Heparin Anti-Xa Level ABG pH POC ABG pO2 ABG pO2 ABG HCO3 ABG O2 Saturation ABG Base Excess POC ABG pCO2 ABG Hemoglobin ABG Oxyhemoglobin ABG Glucose Oxyhemoglobin Sodium 147 H Potassium 3.3 L D Chloride Carbon Dioxide 32 H BUN Creatinine 0.6 L Glucose 106 H POC Glucose 107 H 113 H Lactic Acid Calcium Phosphorus Magnesium AST ALT Lactate Dehydrogenase CK-MB (CK-2) C-Reactive Protein NT-Pro-B Natriuret Pep Total Protein Albumin Arterial Blood Glucose Urine WBC (Auto) Urine Creatinine 01/10/20 01/10/20 01/10/20 04:05 11:36 17:54 WBC RBC Hgb Hct MCHC RDW MCV MCH Lymph % (Auto) [place] % (Auto) [place] # Eos # Lymph # (Auto) [place] # (Auto) Eos # (Auto) Seg Neutrophils % Seg Neuts % (Manual) Baso # (Auto) Lymphocytes % (Manual) Monocytes % (Manual) Eosinophils % (Manual) Basophils % (Manual) Seg Neutrophils # Seg Neutrophils # Man Lymphocytes # (Manual) Monocytes # (Manual) Eosinophils # (Manual) Nucleated RBC % Basophils # (Manual) PT INR APTT Heparin Anti-Xa Level ABG pH POC ABG pO2 ABG pO2 ABG HCO3 ABG O2 Saturation ABG Base Excess POC ABG pCO2 ABG Hemoglobin ABG Oxyhemoglobin ABG Glucose Oxyhemoglobin Sodium Potassium Chloride Carbon Dioxide BUN Creatinine 0.7 L Glucose 110 H POC Glucose 129 H 117 H Lactic Acid Calcium Phosphorus Magnesium AST ALT Lactate Dehydrogenase CK-MB (CK-2) C-Reactive Protein NT-Pro-B Natriuret Pep Total Protein Albumin Arterial Blood Glucose Urine WBC (Auto) Urine Creatinine 01/10/20 01/11/20 01/11/20 23:52 03:19 12:09 WBC RBC Hgb Hct MCHC RDW MCV MCH Lymph % (Auto) [place] % (Auto) [place] # Eos # Lymph # (Auto) [place] # (Auto) Eos # (Auto) Seg Neutrophils % Seg Neuts % (Manual) Baso # (Auto) Lymphocytes % (Manual) Monocytes % (Manual) Eosinophils % (Manual) Basophils % (Manual) Seg Neutrophils # Seg Neutrophils # Man Lymphocytes # (Manual) Monocytes # (Manual) Eosinophils # (Manual) Nucleated RBC % Basophils # (Manual) PT INR APTT Heparin Anti-Xa Level ABG pH POC ABG pO2 ABG pO2 ABG HCO3 ABG O2 Saturation ABG Base Excess POC ABG pCO2 ABG Hemoglobin ABG Oxyhemoglobin ABG Glucose Oxyhemoglobin Sodium Potassium Chloride Carbon Dioxide BUN Creatinine Glucose POC Glucose 117 H 136 H 115 H Lactic Acid Calcium Phosphorus Magnesium AST ALT Lactate Dehydrogenase CK-MB (CK-2) C-Reactive Protein NT-Pro-B Natriuret Pep Total Protein Albumin Arterial Blood Glucose Urine WBC (Auto) Urine Creatinine 01/11/20 01/11/20 01/12/20 18:27 23:28 00:23 WBC RBC Hgb 9.8 L Hct 31.6 L MCHC 31 L RDW 17.8 H MCV 83 L MCH 26 L Lymph % (Auto) [place] % (Auto) 8.0 H [place] # Eos # Lymph # (Auto) [place] # (Auto) Eos # (Auto) Seg Neutrophils % Seg Neuts % (Manual) Baso # (Auto) Lymphocytes % (Manual) Monocytes % (Manual) Eosinophils % (Manual) Basophils % (Manual) Seg Neutrophils # Seg Neutrophils # Man Lymphocytes # (Manual) Monocytes # (Manual) Eosinophils # (Manual) Nucleated RBC % Basophils # (Manual) PT INR APTT Heparin Anti-Xa Level ABG pH POC ABG pO2 ABG pO2 ABG HCO3 ABG O2 Saturation ABG Base Excess POC ABG pCO2 ABG Hemoglobin ABG Oxyhemoglobin ABG Glucose Oxyhemoglobin Sodium Potassium Chloride Carbon Dioxide BUN Creatinine Glucose POC Glucose 118 H 122 H Lactic Acid Calcium Phosphorus Magnesium AST ALT Lactate Dehydrogenase CK-MB (CK-2) C-Reactive Protein NT-Pro-B Natriuret Pep Total Protein Albumin Arterial Blood Glucose Urine WBC (Auto) Urine Creatinine 01/12/20 01/12/20 01/12/20 00:23 04:18 04:18 WBC RBC Hgb 9.6 L Hct 30.9 L MCHC 31 L RDW 17.3 H MCV 81 L MCH 25 L Lymph % (Auto) [place] % (Auto) [place] # Eos # Lymph # (Auto) [place] # (Auto) Eos # (Auto) Seg Neutrophils % Seg Neuts % (Manual) Baso # (Auto) Lymphocytes % (Manual) Monocytes % (Manual) Eosinophils % (Manual) Basophils % (Manual) Seg Neutrophils # Seg Neutrophils # Man Lymphocytes # (Manual) Monocytes # (Manual) Eosinophils # (Manual) Nucleated RBC % Basophils # (Manual) PT INR APTT Heparin Anti-Xa Level ABG pH POC ABG pO2 ABG pO2 ABG HCO3 ABG O2 Saturation ABG Base Excess POC ABG pCO2 ABG Hemoglobin ABG Oxyhemoglobin ABG Glucose Oxyhemoglobin Sodium Potassium Chloride Carbon Dioxide BUN Creatinine 0.7 L 0.7 L Glucose 111 H 108 H POC Glucose Lactic Acid Calcium Phosphorus Magnesium AST ALT Lactate Dehydrogenase CK-MB (CK-2) C-Reactive Protein NT-Pro-B Natriuret Pep Total Protein Albumin 2.6 L Arterial Blood Glucose Urine WBC (Auto) Urine Creatinine 01/12/20 01/12/20 01/12/20 06:03 12:27 13:58 WBC RBC Hgb Hct MCHC RDW MCV MCH Lymph % (Auto) [place] % (Auto) [place] # Eos # Lymph # (Auto) [place] # (Auto) Eos # (Auto) Seg Neutrophils % Seg Neuts % (Manual) Baso # (Auto) Lymphocytes % (Manual) Monocytes % (Manual) Eosinophils % (Manual) Basophils % (Manual) Seg Neutrophils # Seg Neutrophils # Man Lymphocytes # (Manual) Monocytes # (Manual) Eosinophils # (Manual) Nucleated RBC % Basophils # (Manual) PT INR APTT Heparin Anti-Xa Level ABG pH 7.453 H POC ABG pO2 76.6 L ABG pO2 ABG HCO3 ABG O2 Saturation ABG Base Excess POC ABG pCO2 ABG Hemoglobin 10.3 L ABG Oxyhemoglobin ABG Glucose 99 H Oxyhemoglobin Sodium Potassium Chloride Carbon Dioxide BUN Creatinine Glucose POC Glucose 128 H 121 H Lactic Acid Calcium Phosphorus Magnesium AST ALT Lactate Dehydrogenase CK-MB (CK-2) C-Reactive Protein NT-Pro-B Natriuret Pep Total Protein Albumin Arterial Blood Glucose 99 H Urine WBC (Auto) Urine Creatinine 01/12/20 01/13/20 01/13/20 18:24 12:01 17:46 WBC RBC Hgb Hct MCHC RDW MCV MCH Lymph % (Auto) [place] % (Auto) [place] # Eos # Lymph # (Auto) [place] # (Auto) Eos # (Auto) Seg Neutrophils % Seg Neuts % (Manual) Baso # (Auto) Lymphocytes % (Manual) Monocytes % (Manual) Eosinophils % (Manual) Basophils % (Manual) Seg Neutrophils # Seg Neutrophils # Man Lymphocytes # (Manual) Monocytes # (Manual) Eosinophils # (Manual) Nucleated RBC % Basophils # (Manual) PT INR APTT Heparin Anti-Xa Level ABG pH POC ABG pO2 ABG pO2 ABG HCO3 ABG O2 Saturation ABG Base Excess POC ABG pCO2 ABG Hemoglobin ABG Oxyhemoglobin ABG Glucose Oxyhemoglobin Sodium Potassium Chloride Carbon Dioxide BUN Creatinine Glucose POC Glucose 119 H 107 H 124 H Lactic Acid Calcium Phosphorus Magnesium AST ALT Lactate Dehydrogenase CK-MB (CK-2) C-Reactive Protein NT-Pro-B Natriuret Pep Total Protein Albumin Arterial Blood Glucose Urine WBC (Auto) Urine Creatinine 01/13/20 01/14/20 01/14/20 20:40 00:10 05:33 WBC RBC Hgb Hct MCHC RDW MCV MCH Lymph % (Auto) [place] % (Auto) [place] # Eos # Lymph # (Auto) [place] # (Auto) Eos # (Auto) Seg Neutrophils % Seg Neuts % (Manual) Baso # (Auto) Lymphocytes % (Manual) Monocytes % (Manual) Eosinophils % (Manual) Basophils % (Manual) Seg Neutrophils # Seg Neutrophils # Man Lymphocytes # (Manual) Monocytes # (Manual) Eosinophils # (Manual) Nucleated RBC % Basophils # (Manual) PT INR APTT Heparin Anti-Xa Level ABG pH POC ABG pO2 ABG pO2 65.3 L ABG HCO3 31.8 H ABG O2 Saturation 93.5 L ABG Base Excess 6.7 H POC ABG pCO2 ABG Hemoglobin 13.3 L ABG Oxyhemoglobin ABG Glucose Oxyhemoglobin 90.9 L Sodium Potassium Chloride Carbon Dioxide BUN Creatinine Glucose POC Glucose 111 H 111 H Lactic Acid Calcium Phosphorus Magnesium AST ALT Lactate Dehydrogenase CK-MB (CK-2) C-Reactive Protein NT-Pro-B Natriuret Pep Total Protein Albumin Arterial Blood Glucose Urine WBC (Auto) Urine Creatinine 01/14/20 01/14/20 01/14/20 12:10 16:14 16:14 WBC RBC Hgb 10.6 L Hct 34.2 L MCHC 31 L RDW 18.3 H MCV 83 L MCH 26 L Lymph % (Auto) [place] % (Auto) 7.4 H [place] # Eos # Lymph # (Auto) [place] # (Auto) Eos # (Auto) Seg Neutrophils % 71.9 H Seg Neuts % (Manual) Baso # (Auto) Lymphocytes % (Manual) Monocytes % (Manual) Eosinophils % (Manual) Basophils % (Manual) Seg Neutrophils # Seg Neutrophils # Man Lymphocytes # (Manual) Monocytes # (Manual) Eosinophils # (Manual) Nucleated RBC % Basophils # (Manual) PT INR APTT Heparin Anti-Xa Level ABG pH POC ABG pO2 ABG pO2 ABG HCO3 ABG O2 Saturation ABG Base Excess POC ABG pCO2 ABG Hemoglobin ABG Oxyhemoglobin ABG Glucose Oxyhemoglobin Sodium Potassium Chloride Carbon Dioxide 31 H BUN Creatinine 0.6 L Glucose 131 H POC Glucose 139 H Lactic Acid Calcium Phosphorus Magnesium AST ALT Lactate Dehydrogenase CK-MB (CK-2) C-Reactive Protein NT-Pro-B Natriuret Pep Total Protein Albumin Arterial Blood Glucose Urine WBC (Auto) Urine Creatinine 01/14/20 01/15/20 01/15/20 18:05 00:52 05:35 WBC RBC Hgb Hct MCHC RDW MCV MCH Lymph % (Auto) [place] % (Auto) [place] # Eos # Lymph # (Auto) [place] # (Auto) Eos # (Auto) Seg Neutrophils % Seg Neuts % (Manual) Baso # (Auto) Lymphocytes % (Manual) Monocytes % (Manual) Eosinophils % (Manual) Basophils % (Manual) Seg Neutrophils # Seg Neutrophils # Man Lymphocytes # (Manual) Monocytes # (Manual) Eosinophils # (Manual) Nucleated RBC % Basophils # (Manual) PT INR APTT Heparin Anti-Xa Level ABG pH POC ABG pO2 ABG pO2 ABG HCO3 ABG O2 Saturation ABG Base Excess POC ABG pCO2 ABG Hemoglobin ABG Oxyhemoglobin ABG Glucose Oxyhemoglobin Sodium Potassium Chloride Carbon Dioxide BUN Creatinine Glucose POC Glucose 147 H 140 H 159 H Lactic Acid Calcium Phosphorus Magnesium AST ALT Lactate Dehydrogenase CK-MB (CK-2) C-Reactive Protein NT-Pro-B Natriuret Pep Total Protein Albumin Arterial Blood Glucose Urine WBC (Auto) Urine Creatinine 01/15/20 01/15/20 01/16/20 12:52 17:43 00:32 WBC RBC Hgb Hct MCHC RDW MCV MCH Lymph % (Auto) [place] % (Auto) [place] # Eos # Lymph # (Auto) [place] # (Auto) Eos # (Auto) Seg Neutrophils % Seg Neuts % (Manual) Baso # (Auto) Lymphocytes % (Manual) Monocytes % (Manual) Eosinophils % (Manual) Basophils % (Manual) Seg Neutrophils # Seg Neutrophils # Man Lymphocytes # (Manual) Monocytes # (Manual) Eosinophils # (Manual) Nucleated RBC % Basophils # (Manual) PT INR APTT Heparin Anti-Xa Level ABG pH POC ABG pO2 ABG pO2 ABG HCO3 ABG O2 Saturation ABG Base Excess POC ABG pCO2 ABG Hemoglobin ABG Oxyhemoglobin ABG Glucose Oxyhemoglobin Sodium Potassium Chloride Carbon Dioxide BUN Creatinine Glucose POC Glucose 164 H 167 H 153 H Lactic Acid Calcium Phosphorus Magnesium AST ALT Lactate Dehydrogenase CK-MB (CK-2) C-Reactive Protein NT-Pro-B Natriuret Pep Total Protein Albumin Arterial Blood Glucose Urine WBC (Auto) Urine Creatinine 01/16/20 01/16/20 01/17/20 05:46 11:48 06:38 WBC RBC Hgb Hct MCHC RDW MCV MCH Lymph % (Auto) [place] % (Auto) [place] # Eos # Lymph # (Auto) [place] # (Auto) Eos # (Auto) Seg Neutrophils % Seg Neuts % (Manual) Baso # (Auto) Lymphocytes % (Manual) Monocytes % (Manual) Eosinophils % (Manual) Basophils % (Manual) Seg Neutrophils # Seg Neutrophils # Man Lymphocytes # (Manual) Monocytes # (Manual) Eosinophils # (Manual) Nucleated RBC % Basophils # (Manual) PT INR APTT Heparin Anti-Xa Level ABG pH POC ABG pO2 ABG pO2 ABG HCO3 ABG O2 Saturation ABG Base Excess POC ABG pCO2 ABG Hemoglobin ABG Oxyhemoglobin ABG Glucose Oxyhemoglobin Sodium Potassium Chloride Carbon Dioxide BUN Creatinine Glucose POC Glucose 163 H 155 H 116 H Lactic Acid Calcium Phosphorus Magnesium AST ALT Lactate Dehydrogenase CK-MB (CK-2) C-Reactive Protein NT-Pro-B Natriuret Pep Total Protein Albumin Arterial Blood Glucose Urine WBC (Auto) Urine Creatinine 01/17/20 01/17/20 01/18/20 11:36 17:43 00:12 WBC RBC Hgb Hct MCHC RDW MCV MCH Lymph % (Auto) [place] % (Auto) [place] # Eos # Lymph # (Auto) [place] # (Auto) Eos # (Auto) Seg Neutrophils % Seg Neuts % (Manual) Baso # (Auto) Lymphocytes % (Manual) Monocytes % (Manual) Eosinophils % (Manual) Basophils % (Manual) Seg Neutrophils # Seg Neutrophils # Man Lymphocytes # (Manual) Monocytes # (Manual) Eosinophils # (Manual) Nucleated RBC % Basophils # (Manual) PT INR APTT Heparin Anti-Xa Level ABG pH POC ABG pO2 ABG pO2 ABG HCO3 ABG O2 Saturation ABG Base Excess POC ABG pCO2 ABG Hemoglobin ABG Oxyhemoglobin ABG Glucose Oxyhemoglobin Sodium Potassium Chloride Carbon Dioxide BUN Creatinine Glucose POC Glucose 110 H 134 H 108 H Lactic Acid Calcium Phosphorus Magnesium AST ALT Lactate Dehydrogenase CK-MB (CK-2) C-Reactive Protein NT-Pro-B Natriuret Pep Total Protein Albumin Arterial Blood Glucose Urine WBC (Auto) Urine Creatinine 01/18/20 01/18/20 01/18/20 05:37 06:46 06:46 WBC RBC Hgb 10.1 L Hct 32.2 L MCHC 31 L RDW 18.1 H MCV 81 L MCH 25 L Lymph % (Auto) [place] % (Auto) [place] # Eos # Lymph # (Auto) [place] # (Auto) Eos # (Auto) Seg Neutrophils % 71.9 H Seg Neuts % (Manual) Baso # (Auto) Lymphocytes % (Manual) Monocytes % (Manual) Eosinophils % (Manual) Basophils % (Manual) Seg Neutrophils # Seg Neutrophils # Man Lymphocytes # (Manual) Monocytes # (Manual) Eosinophils # (Manual) Nucleated RBC % Basophils # (Manual) PT INR APTT Heparin Anti-Xa Level ABG pH POC ABG pO2 ABG pO2 ABG HCO3 ABG O2 Saturation ABG Base Excess POC ABG pCO2 ABG Hemoglobin ABG Oxyhemoglobin ABG Glucose Oxyhemoglobin Sodium Potassium Chloride Carbon Dioxide BUN Creatinine 0.7 L Glucose 155 H POC Glucose 168 H Lactic Acid Calcium Phosphorus Magnesium AST ALT Lactate Dehydrogenase CK-MB (CK-2) C-Reactive Protein NT-Pro-B Natriuret Pep Total Protein Albumin Arterial Blood Glucose Urine WBC (Auto) Urine Creatinine 01/18/20 01/18/20 01/18/20 12:05 17:14 23:28 WBC RBC Hgb Hct MCHC RDW MCV MCH Lymph % (Auto) [place] % (Auto) [place] # Eos # Lymph # (Auto) [place] # (Auto) Eos # (Auto) Seg Neutrophils % Seg Neuts % (Manual) Baso # (Auto) Lymphocytes % (Manual) Monocytes % (Manual) Eosinophils % (Manual) Basophils % (Manual) Seg Neutrophils # Seg Neutrophils # Man Lymphocytes # (Manual) Monocytes # (Manual) Eosinophils # (Manual) Nucleated RBC % Basophils # (Manual) PT INR APTT Heparin Anti-Xa Level ABG pH POC ABG pO2 ABG pO2 ABG HCO3 ABG O2 Saturation ABG Base Excess POC ABG pCO2 ABG Hemoglobin ABG Oxyhemoglobin ABG Glucose Oxyhemoglobin Sodium Potassium Chloride Carbon Dioxide BUN Creatinine Glucose POC Glucose 128 H 126 H 128 H Lactic Acid Calcium Phosphorus Magnesium AST ALT Lactate Dehydrogenase CK-MB (CK-2) C-Reactive Protein NT-Pro-B Natriuret Pep Total Protein Albumin Arterial Blood Glucose Urine WBC (Auto) Urine Creatinine 01/19/20 01/19/20 01/19/20 05:39 12:33 17:36 WBC RBC Hgb Hct MCHC RDW MCV MCH Lymph % (Auto) [place] % (Auto) [place] # Eos # Lymph # (Auto) [place] # (Auto) Eos # (Auto) Seg Neutrophils % Seg Neuts % (Manual) Baso # (Auto) Lymphocytes % (Manual) Monocytes % (Manual) Eosinophils % (Manual) Basophils % (Manual) Seg Neutrophils # Seg Neutrophils # Man Lymphocytes # (Manual) Monocytes # (Manual) Eosinophils # (Manual) Nucleated RBC % Basophils # (Manual) PT INR APTT Heparin Anti-Xa Level ABG pH POC ABG pO2 ABG pO2 ABG HCO3 ABG O2 Saturation ABG Base Excess POC ABG pCO2 ABG Hemoglobin ABG Oxyhemoglobin ABG Glucose Oxyhemoglobin Sodium Potassium Chloride Carbon Dioxide BUN Creatinine Glucose POC Glucose 164 H 171 H 152 H Lactic Acid Calcium Phosphorus Magnesium AST ALT Lactate Dehydrogenase CK-MB (CK-2) C-Reactive Protein NT-Pro-B Natriuret Pep Total Protein Albumin Arterial Blood Glucose Urine WBC (Auto) Urine Creatinine 01/20/20 01/20/20 01/20/20 00:12 05:20 05:35 WBC RBC Hgb 9.2 L Hct 29.4 L MCHC 31 L RDW 17.9 H MCV 81 L MCH 25 L Lymph % (Auto) [place] % (Auto) [place] # Eos # Lymph # (Auto) [place] # (Auto) Eos # (Auto) Seg Neutrophils % Seg Neuts % (Manual) Baso # (Auto) Lymphocytes % (Manual) Monocytes % (Manual) Eosinophils % (Manual) Basophils % (Manual) Seg Neutrophils # Seg Neutrophils # Man Lymphocytes # (Manual) Monocytes # (Manual) Eosinophils # (Manual) Nucleated RBC % Basophils # (Manual) PT INR APTT Heparin Anti-Xa Level ABG pH POC ABG pO2 ABG pO2 ABG HCO3 ABG O2 Saturation ABG Base Excess POC ABG pCO2 ABG Hemoglobin ABG Oxyhemoglobin ABG Glucose Oxyhemoglobin Sodium Potassium Chloride Carbon Dioxide BUN Creatinine Glucose POC Glucose 120 H 136 H Lactic Acid Calcium Phosphorus Magnesium AST ALT Lactate Dehydrogenase CK-MB (CK-2) C-Reactive Protein NT-Pro-B Natriuret Pep Total Protein Albumin Arterial Blood Glucose Urine WBC (Auto) Urine Creatinine 01/20/20 01/20/20 01/20/20 05:40 11:58 14:55 WBC RBC Hgb 9.0 L Hct 28.3 L MCHC RDW MCV MCH Lymph % (Auto) [place] % (Auto) [place] # Eos # Lymph # (Auto) [place] # (Auto) Eos # (Auto) Seg Neutrophils % Seg Neuts % (Manual) Baso # (Auto) Lymphocytes % (Manual) Monocytes % (Manual) Eosinophils % (Manual) Basophils % (Manual) Seg Neutrophils # Seg Neutrophils # Man Lymphocytes # (Manual) Monocytes # (Manual) Eosinophils # (Manual) Nucleated RBC % Basophils # (Manual) PT INR APTT Heparin Anti-Xa Level ABG pH POC ABG pO2 ABG pO2 ABG HCO3 ABG O2 Saturation ABG Base Excess POC ABG pCO2 ABG Hemoglobin ABG Oxyhemoglobin ABG Glucose Oxyhemoglobin Sodium Potassium Chloride Carbon Dioxide 32 H BUN 22 H Creatinine 0.7 L Glucose 128 H POC Glucose 152 H Lactic Acid Calcium Phosphorus Magnesium AST ALT Lactate Dehydrogenase CK-MB (CK-2) C-Reactive Protein NT-Pro-B Natriuret Pep Total Protein Albumin Arterial Blood Glucose Urine WBC (Auto) Urine Creatinine 01/20/20 01/20/20 01/20/20 14:55 18:14 21:35 WBC RBC Hgb Hct MCHC RDW MCV MCH Lymph % (Auto) [place] % (Auto) [place] # Eos # Lymph # (Auto) [place] # (Auto) Eos # (Auto) Seg Neutrophils % Seg Neuts % (Manual) Baso # (Auto) Lymphocytes % (Manual) Monocytes % (Manual) Eosinophils % (Manual) Basophils % (Manual) Seg Neutrophils # Seg Neutrophils # Man Lymphocytes # (Manual) Monocytes # (Manual) Eosinophils # (Manual) Nucleated RBC % Basophils # (Manual) PT 20.4 H INR 1.72 H APTT 40.6 H Heparin Anti-Xa Level > 2.00 H ABG pH POC ABG pO2 ABG pO2 ABG HCO3 ABG O2 Saturation ABG Base Excess POC ABG pCO2 ABG Hemoglobin ABG Oxyhemoglobin ABG Glucose Oxyhemoglobin Sodium Potassium Chloride Carbon Dioxide BUN Creatinine Glucose POC Glucose 150 H Lactic Acid Calcium Phosphorus Magnesium AST ALT Lactate Dehydrogenase CK-MB (CK-2) C-Reactive Protein NT-Pro-B Natriuret Pep Total Protein Albumin Arterial Blood Glucose Urine WBC (Auto) Urine Creatinine 01/21/20 01/21/20 01/21/20 00:30 05:47 05:59 WBC RBC Hgb Hct MCHC RDW MCV MCH Lymph % (Auto) [place] % (Auto) [place] # Eos # Lymph # (Auto) [place] # (Auto) Eos # (Auto) Seg Neutrophils % Seg Neuts % (Manual) Baso # (Auto) Lymphocytes % (Manual) Monocytes % (Manual) Eosinophils % (Manual) Basophils % (Manual) Seg Neutrophils # Seg Neutrophils # Man Lymphocytes # (Manual) Monocytes # (Manual) Eosinophils # (Manual) Nucleated RBC % Basophils # (Manual) PT INR APTT Heparin Anti-Xa Level 1.93 H ABG pH POC ABG pO2 ABG pO2 ABG HCO3 ABG O2 Saturation ABG Base Excess POC ABG pCO2 ABG Hemoglobin ABG Oxyhemoglobin ABG Glucose Oxyhemoglobin Sodium Potassium Chloride Carbon Dioxide BUN Creatinine Glucose POC Glucose 126 H 148 H Lactic Acid Calcium Phosphorus Magnesium AST ALT Lactate Dehydrogenase CK-MB (CK-2) C-Reactive Protein NT-Pro-B Natriuret Pep Total Protein Albumin Arterial Blood Glucose Urine WBC (Auto) Urine Creatinine 01/21/20 01/21/20 01/21/20 12:32 18:20 23:54 WBC RBC Hgb Hct MCHC RDW MCV MCH Lymph % (Auto) [place] % (Auto) [place] # Eos # Lymph # (Auto) [place] # (Auto) Eos # (Auto) Seg Neutrophils % Seg Neuts % (Manual) Baso # (Auto) Lymphocytes % (Manual) Monocytes % (Manual) Eosinophils % (Manual) Basophils % (Manual) Seg Neutrophils # Seg Neutrophils # Man Lymphocytes # (Manual) Monocytes # (Manual) Eosinophils # (Manual) Nucleated RBC % Basophils # (Manual) PT INR APTT Heparin Anti-Xa Level 1.28 H ABG pH POC ABG pO2 ABG pO2 ABG HCO3 ABG O2 Saturation ABG Base Excess POC ABG pCO2 ABG Hemoglobin ABG Oxyhemoglobin ABG Glucose Oxyhemoglobin Sodium Potassium Chloride Carbon Dioxide BUN Creatinine Glucose POC Glucose 112 H 146 H Lactic Acid Calcium Phosphorus Magnesium AST ALT Lactate Dehydrogenase CK-MB (CK-2) C-Reactive Protein NT-Pro-B Natriuret Pep Total Protein Albumin Arterial Blood Glucose Urine WBC (Auto) Urine Creatinine 01/22/20 01/22/20 01/22/20 04:45 04:45 05:48 WBC RBC Hgb 9.3 L Hct 29.0 L MCHC RDW MCV MCH Lymph % (Auto) [place] % (Auto) [place] # Eos # Lymph # (Auto) [place] # (Auto) Eos # (Auto) Seg Neutrophils % Seg Neuts % (Manual) Baso # (Auto) Lymphocytes % (Manual) Monocytes % (Manual) Eosinophils % (Manual) Basophils % (Manual) Seg Neutrophils # Seg Neutrophils # Man Lymphocytes # (Manual) Monocytes # (Manual) Eosinophils # (Manual) Nucleated RBC % Basophils # (Manual) PT INR APTT Heparin Anti-Xa Level 1.34 H ABG pH POC ABG pO2 ABG pO2 ABG HCO3 ABG O2 Saturation ABG Base Excess POC ABG pCO2 ABG Hemoglobin ABG Oxyhemoglobin ABG Glucose Oxyhemoglobin Sodium Potassium Chloride Carbon Dioxide BUN Creatinine Glucose POC Glucose 142 H Lactic Acid Calcium Phosphorus Magnesium AST ALT Lactate Dehydrogenase CK-MB (CK-2) C-Reactive Protein NT-Pro-B Natriuret Pep Total Protein Albumin Arterial Blood Glucose Urine WBC (Auto) Urine Creatinine 01/22/20 01/22/20 01/22/20 08:09 08:22 09:58 WBC RBC Hgb Hct MCHC RDW MCV MCH Lymph % (Auto) [place] % (Auto) [place] # Eos # Lymph # (Auto) [place] # (Auto) Eos # (Auto) Seg Neutrophils % Seg Neuts % (Manual) Baso # (Auto) Lymphocytes % (Manual) Monocytes % (Manual) Eosinophils % (Manual) Basophils % (Manual) Seg Neutrophils # Seg Neutrophils # Man Lymphocytes # (Manual) Monocytes # (Manual) Eosinophils # (Manual) Nucleated RBC % Basophils # (Manual) PT 16.9 H INR 1.34 H APTT Heparin Anti-Xa Level ABG pH POC ABG pO2 ABG pO2 ABG HCO3 ABG O2 Saturation ABG Base Excess POC ABG pCO2 ABG Hemoglobin ABG Oxyhemoglobin ABG Glucose Oxyhemoglobin Sodium Potassium Chloride 97.8 L Carbon Dioxide BUN 29 H Creatinine Glucose 128 H POC Glucose 131 H Lactic Acid Calcium Phosphorus Magnesium AST ALT Lactate Dehydrogenase CK-MB (CK-2) C-Reactive Protein NT-Pro-B Natriuret Pep Total Protein Albumin Arterial Blood Glucose Urine WBC (Auto) Urine Creatinine 01/22/20 01/22/20 01/22/20 12:44 16:13 18:18 WBC RBC Hgb Hct MCHC RDW MCV MCH Lymph % (Auto) [place] % (Auto) [place] # Eos # Lymph # (Auto) [place] # (Auto) Eos # (Auto) Seg Neutrophils % Seg Neuts % (Manual) Baso # (Auto) Lymphocytes % (Manual) Monocytes % (Manual) Eosinophils % (Manual) Basophils % (Manual) Seg Neutrophils # Seg Neutrophils # Man Lymphocytes # (Manual) Monocytes # (Manual) Eosinophils # (Manual) Nucleated RBC % Basophils # (Manual) PT INR APTT Heparin Anti-Xa Level ABG pH POC ABG pO2 ABG pO2 ABG HCO3 ABG O2 Saturation ABG Base Excess POC ABG pCO2 ABG Hemoglobin ABG Oxyhemoglobin ABG Glucose Oxyhemoglobin Sodium Potassium Chloride Carbon Dioxide BUN Creatinine Glucose POC Glucose 156 H 133 H 155 H Lactic Acid Calcium Phosphorus Magnesium AST ALT Lactate Dehydrogenase CK-MB (CK-2) C-Reactive Protein NT-Pro-B Natriuret Pep Total Protein Albumin Arterial Blood Glucose Urine WBC (Auto) Urine Creatinine 01/22/20 01/23/20 01/23/20 23:22 05:37 12:59 WBC RBC Hgb Hct MCHC RDW MCV MCH Lymph % (Auto) [place] % (Auto) [place] # Eos # Lymph # (Auto) [place] # (Auto) Eos # (Auto) Seg Neutrophils % Seg Neuts % (Manual) Baso # (Auto) Lymphocytes % (Manual) Monocytes % (Manual) Eosinophils % (Manual) Basophils % (Manual) Seg Neutrophils # Seg Neutrophils # Man Lymphocytes # (Manual) Monocytes # (Manual) Eosinophils # (Manual) Nucleated RBC % Basophils # (Manual) PT INR APTT Heparin Anti-Xa Level ABG pH POC ABG pO2 ABG pO2 ABG HCO3 ABG O2 Saturation ABG Base Excess POC ABG pCO2 ABG Hemoglobin ABG Oxyhemoglobin ABG Glucose Oxyhemoglobin Sodium Potassium Chloride Carbon Dioxide BUN Creatinine Glucose POC Glucose 148 H 163 H 175 H Lactic Acid Calcium Phosphorus Magnesium AST ALT Lactate Dehydrogenase CK-MB (CK-2) C-Reactive Protein NT-Pro-B Natriuret Pep Total Protein Albumin Arterial Blood Glucose Urine WBC (Auto) Urine Creatinine 01/23/20 01/23/20 01/24/20 17:28 23:56 04:30 WBC RBC 3.46 L Hgb 8.8 L Hct 27.8 L MCHC RDW 18.2 H MCV 81 L MCH 25 L Lymph % (Auto) [place] % (Auto) 7.8 H [place] # Eos # Lymph # (Auto) [place] # (Auto) Eos # (Auto) Seg Neutrophils % Seg Neuts % (Manual) Baso # (Auto) Lymphocytes % (Manual) Monocytes % (Manual) Eosinophils % (Manual) Basophils % (Manual) Seg Neutrophils # Seg Neutrophils # Man Lymphocytes # (Manual) Monocytes # (Manual) Eosinophils # (Manual) Nucleated RBC % Basophils # (Manual) PT INR APTT Heparin Anti-Xa Level ABG pH POC ABG pO2 ABG pO2 ABG HCO3 ABG O2 Saturation ABG Base Excess POC ABG pCO2 ABG Hemoglobin ABG Oxyhemoglobin ABG Glucose Oxyhemoglobin Sodium Potassium Chloride Carbon Dioxide BUN Creatinine Glucose POC Glucose 165 H 177 H Lactic Acid Calcium Phosphorus Magnesium AST ALT Lactate Dehydrogenase CK-MB (CK-2) C-Reactive Protein NT-Pro-B Natriuret Pep Total Protein Albumin Arterial Blood Glucose Urine WBC (Auto) Urine Creatinine 01/24/20 01/24/20 01/24/20 04:30 07:18 12:06 WBC RBC Hgb Hct MCHC RDW MCV MCH Lymph % (Auto) [place] % (Auto) [place] # Eos # Lymph # (Auto) [place] # (Auto) Eos # (Auto) Seg Neutrophils % Seg Neuts % (Manual) Baso # (Auto) Lymphocytes % (Manual) Monocytes % (Manual) Eosinophils % (Manual) Basophils % (Manual) Seg Neutrophils # Seg Neutrophils # Man Lymphocytes # (Manual) Monocytes # (Manual) Eosinophils # (Manual) Nucleated RBC % Basophils # (Manual) PT INR APTT Heparin Anti-Xa Level ABG pH POC ABG pO2 ABG pO2 ABG HCO3 ABG O2 Saturation ABG Base Excess POC ABG pCO2 ABG Hemoglobin ABG Oxyhemoglobin ABG Glucose Oxyhemoglobin Sodium Potassium Chloride 97.9 L Carbon Dioxide BUN 31 H Creatinine Glucose 146 H POC Glucose 151 H 133 H Lactic Acid Calcium Phosphorus Magnesium AST ALT Lactate Dehydrogenase CK-MB (CK-2) C-Reactive Protein NT-Pro-B Natriuret Pep Total Protein Albumin Arterial Blood Glucose Urine WBC (Auto) Urine Creatinine 01/24/20 01/25/20 01/25/20 17:36 00:08 04:25 WBC RBC 3.50 L Hgb 8.7 L Hct 27.9 L MCHC 31 L RDW 18.2 H MCV 80 L MCH 25 L Lymph % (Auto) [place] % (Auto) 8.5 H [place] # Eos # Lymph # (Auto) [place] # (Auto) Eos # (Auto) Seg Neutrophils % Seg Neuts % (Manual) Baso # (Auto) Lymphocytes % (Manual) Monocytes % (Manual) Eosinophils % (Manual) Basophils % (Manual) Seg Neutrophils # Seg Neutrophils # Man Lymphocytes # (Manual) Monocytes # (Manual) Eosinophils # (Manual) Nucleated RBC % Basophils # (Manual) PT INR APTT Heparin Anti-Xa Level ABG pH POC ABG pO2 ABG pO2 ABG HCO3 ABG O2 Saturation ABG Base Excess POC ABG pCO2 ABG Hemoglobin ABG Oxyhemoglobin ABG Glucose Oxyhemoglobin Sodium Potassium Chloride Carbon Dioxide BUN Creatinine Glucose POC Glucose 133 H 129 H Lactic Acid Calcium Phosphorus Magnesium AST ALT Lactate Dehydrogenase CK-MB (CK-2) C-Reactive Protein NT-Pro-B Natriuret Pep Total Protein Albumin Arterial Blood Glucose Urine WBC (Auto) Urine Creatinine 01/25/20 01/25/20 01/25/20 04:25 05:38 11:52 WBC RBC Hgb Hct MCHC RDW MCV MCH Lymph % (Auto) [place] % (Auto) [place] # Eos # Lymph # (Auto) [place] # (Auto) Eos # (Auto) Seg Neutrophils % Seg Neuts % (Manual) Baso # (Auto) Lymphocytes % (Manual) Monocytes % (Manual) Eosinophils % (Manual) Basophils % (Manual) Seg Neutrophils # Seg Neutrophils # Man Lymphocytes # (Manual) Monocytes # (Manual) Eosinophils # (Manual) Nucleated RBC % Basophils # (Manual) PT INR APTT Heparin Anti-Xa Level ABG pH POC ABG pO2 ABG pO2 ABG HCO3 ABG O2 Saturation ABG Base Excess POC ABG pCO2 ABG Hemoglobin ABG Oxyhemoglobin ABG Glucose Oxyhemoglobin Sodium Potassium Chloride Carbon Dioxide BUN 30 H Creatinine Glucose 134 H POC Glucose 129 H 134 H Lactic Acid Calcium Phosphorus Magnesium AST ALT Lactate Dehydrogenase CK-MB (CK-2) C-Reactive Protein NT-Pro-B Natriuret Pep Total Protein Albumin Arterial Blood Glucose Urine WBC (Auto) Urine Creatinine 01/25/20 01/25/20 01/26/20 17:13 21:02 00:59 WBC RBC Hgb Hct MCHC RDW MCV MCH Lymph % (Auto) [place] % (Auto) [place] # Eos # Lymph # (Auto) [place] # (Auto) Eos # (Auto) Seg Neutrophils % Seg Neuts % (Manual) Baso # (Auto) Lymphocytes % (Manual) Monocytes % (Manual) Eosinophils % (Manual) Basophils % (Manual) Seg Neutrophils # Seg Neutrophils # Man Lymphocytes # (Manual) Monocytes # (Manual) Eosinophils # (Manual) Nucleated RBC % Basophils # (Manual) PT INR APTT Heparin Anti-Xa Level ABG pH POC ABG pO2 ABG pO2 57.5 L ABG HCO3 31.7 H ABG O2 Saturation 90.3 L ABG Base Excess 6.6 H POC ABG pCO2 ABG Hemoglobin 13.0 L ABG Oxyhemoglobin ABG Glucose Oxyhemoglobin 87.5 L Sodium Potassium Chloride Carbon Dioxide BUN Creatinine Glucose POC Glucose 124 H 196 H Lactic Acid Calcium Phosphorus Magnesium AST ALT Lactate Dehydrogenase CK-MB (CK-2) C-Reactive Protein NT-Pro-B Natriuret Pep Total Protein Albumin Arterial Blood Glucose Urine WBC (Auto) Urine Creatinine 01/26/20 01/26/20 01/26/20 03:20 05:46 12:46 WBC RBC Hgb 9.2 L Hct 29.4 L MCHC RDW MCV MCH Lymph % (Auto) [place] % (Auto) [place] # Eos # Lymph # (Auto) [place] # (Auto) Eos # (Auto) Seg Neutrophils % Seg Neuts % (Manual) Baso # (Auto) Lymphocytes % (Manual) Monocytes % (Manual) Eosinophils % (Manual) Basophils % (Manual) Seg Neutrophils # Seg Neutrophils # Man Lymphocytes # (Manual) Monocytes # (Manual) Eosinophils # (Manual) Nucleated RBC % Basophils # (Manual) PT INR APTT Heparin Anti-Xa Level ABG pH POC ABG pO2 ABG pO2 ABG HCO3 ABG O2 Saturation ABG Base Excess POC ABG pCO2 ABG Hemoglobin ABG Oxyhemoglobin ABG Glucose Oxyhemoglobin Sodium Potassium Chloride Carbon Dioxide BUN Creatinine Glucose POC Glucose 141 H 122 H Lactic Acid Calcium Phosphorus Magnesium AST ALT Lactate Dehydrogenase CK-MB (CK-2) C-Reactive Protein NT-Pro-B Natriuret Pep Total Protein Albumin Arterial Blood Glucose Urine WBC (Auto) Urine Creatinine 01/26/20 01/26/20 01/27/20 18:03 23:55 04:47 WBC RBC Hgb Hct MCHC RDW MCV MCH Lymph % (Auto) [place] % (Auto) [place] # Eos # Lymph # (Auto) [place] # (Auto) Eos # (Auto) Seg Neutrophils % Seg Neuts % (Manual) Baso # (Auto) Lymphocytes % (Manual) Monocytes % (Manual) Eosinophils % (Manual) Basophils % (Manual) Seg Neutrophils # Seg Neutrophils # Man Lymphocytes # (Manual) Monocytes # (Manual) Eosinophils # (Manual) Nucleated RBC % Basophils # (Manual) PT INR APTT Heparin Anti-Xa Level ABG pH POC ABG pO2 ABG pO2 ABG HCO3 ABG O2 Saturation ABG Base Excess POC ABG pCO2 ABG Hemoglobin ABG Oxyhemoglobin ABG Glucose Oxyhemoglobin Sodium Potassium Chloride Carbon Dioxide BUN 30 H Creatinine 0.7 L Glucose 135 H POC Glucose 142 H 159 H Lactic Acid Calcium Phosphorus Magnesium AST ALT Lactate Dehydrogenase CK-MB (CK-2) C-Reactive Protein NT-Pro-B Natriuret Pep Total Protein Albumin Arterial Blood Glucose Urine WBC (Auto) Urine Creatinine 01/27/20 01/27/20 01/27/20 05:43 12:06 17:16 WBC RBC Hgb Hct MCHC RDW MCV MCH Lymph % (Auto) [place] % (Auto) [place] # Eos # Lymph # (Auto) [place] # (Auto) Eos # (Auto) Seg Neutrophils % Seg Neuts % (Manual) Baso # (Auto) Lymphocytes % (Manual) Monocytes % (Manual) Eosinophils % (Manual) Basophils % (Manual) Seg Neutrophils # Seg Neutrophils # Man Lymphocytes # (Manual) Monocytes # (Manual) Eosinophils # (Manual) Nucleated RBC % Basophils # (Manual) PT INR APTT Heparin Anti-Xa Level ABG pH POC ABG pO2 ABG pO2 ABG HCO3 ABG O2 Saturation ABG Base Excess POC ABG pCO2 ABG Hemoglobin ABG Oxyhemoglobin ABG Glucose Oxyhemoglobin Sodium Potassium Chloride Carbon Dioxide BUN Creatinine Glucose POC Glucose 143 H 142 H 128 H Lactic Acid Calcium Phosphorus Magnesium AST ALT Lactate Dehydrogenase CK-MB (CK-2) C-Reactive Protein NT-Pro-B Natriuret Pep Total Protein Albumin Arterial Blood Glucose Urine WBC (Auto) Urine Creatinine 01/27/20 01/28/20 01/28/20 23:55 04:37 05:55 WBC RBC Hgb 9.4 L Hct 29.9 L MCHC RDW MCV MCH Lymph % (Auto) [place] % (Auto) [place] # Eos # Lymph # (Auto) [place] # (Auto) Eos # (Auto) Seg Neutrophils % Seg Neuts % (Manual) Baso # (Auto) Lymphocytes % (Manual) Monocytes % (Manual) Eosinophils % (Manual) Basophils % (Manual) Seg Neutrophils # Seg Neutrophils # Man Lymphocytes # (Manual) Monocytes # (Manual) Eosinophils # (Manual) Nucleated RBC % Basophils # (Manual) PT INR APTT Heparin Anti-Xa Level ABG pH POC ABG pO2 ABG pO2 ABG HCO3 ABG O2 Saturation ABG Base Excess POC ABG pCO2 ABG Hemoglobin ABG Oxyhemoglobin ABG Glucose Oxyhemoglobin Sodium Potassium Chloride Carbon Dioxide BUN Creatinine Glucose POC Glucose 166 H 169 H Lactic Acid Calcium Phosphorus Magnesium AST ALT Lactate Dehydrogenase CK-MB (CK-2) C-Reactive Protein NT-Pro-B Natriuret Pep Total Protein Albumin Arterial Blood Glucose Urine WBC (Auto) Urine Creatinine 01/28/20 01/28/20 01/28/20 11:58 17:26 23:46 WBC RBC Hgb Hct MCHC RDW MCV MCH Lymph % (Auto) [place] % (Auto) [place] # Eos # Lymph # (Auto) [place] # (Auto) Eos # (Auto) Seg Neutrophils % Seg Neuts % (Manual) Baso # (Auto) Lymphocytes % (Manual) Monocytes % (Manual) Eosinophils % (Manual) Basophils % (Manual) Seg Neutrophils # Seg Neutrophils # Man Lymphocytes # (Manual) Monocytes # (Manual) Eosinophils # (Manual) Nucleated RBC % Basophils # (Manual) PT INR APTT Heparin Anti-Xa Level ABG pH POC ABG pO2 ABG pO2 ABG HCO3 ABG O2 Saturation ABG Base Excess POC ABG pCO2 ABG Hemoglobin ABG Oxyhemoglobin ABG Glucose Oxyhemoglobin Sodium Potassium Chloride Carbon Dioxide BUN Creatinine Glucose POC Glucose 130 H 126 H 150 H Lactic Acid Calcium Phosphorus Magnesium AST ALT Lactate Dehydrogenase CK-MB (CK-2) C-Reactive Protein NT-Pro-B Natriuret Pep Total Protein Albumin Arterial Blood Glucose Urine WBC (Auto) Urine Creatinine 01/29/20 01/29/20 01/29/20 04:55 06:00 12:28 WBC RBC Hgb Hct MCHC RDW MCV MCH Lymph % (Auto) [place] % (Auto) [place] # Eos # Lymph # (Auto) [place] # (Auto) Eos # (Auto) Seg Neutrophils % Seg Neuts % (Manual) Baso # (Auto) Lymphocytes % (Manual) Monocytes % (Manual) Eosinophils % (Manual) Basophils % (Manual) Seg Neutrophils # Seg Neutrophils # Man Lymphocytes # (Manual) Monocytes # (Manual) Eosinophils # (Manual) Nucleated RBC % Basophils # (Manual) PT INR APTT Heparin Anti-Xa Level ABG pH POC ABG pO2 ABG pO2 ABG HCO3 ABG O2 Saturation ABG Base Excess POC ABG pCO2 ABG Hemoglobin ABG Oxyhemoglobin ABG Glucose Oxyhemoglobin Sodium Potassium Chloride Carbon Dioxide 34 H BUN Creatinine 0.6 L Glucose 152 H POC Glucose 157 H 156 H Lactic Acid Calcium Phosphorus Magnesium AST ALT Lactate Dehydrogenase CK-MB (CK-2) C-Reactive Protein NT-Pro-B Natriuret Pep Total Protein Albumin Arterial Blood Glucose Urine WBC (Auto) Urine Creatinine 01/29/20 01/30/20 01/30/20 19:06 00:29 05:39 WBC RBC Hgb Hct MCHC RDW MCV MCH Lymph % (Auto) [place] % (Auto) [place] # Eos # Lymph # (Auto) [place] # (Auto) Eos # (Auto) Seg Neutrophils % Seg Neuts % (Manual) Baso # (Auto) Lymphocytes % (Manual) Monocytes % (Manual) Eosinophils % (Manual) Basophils % (Manual) Seg Neutrophils # Seg Neutrophils # Man Lymphocytes # (Manual) Monocytes # (Manual) Eosinophils # (Manual) Nucleated RBC % Basophils # (Manual) PT INR APTT Heparin Anti-Xa Level ABG pH POC ABG pO2 ABG pO2 ABG HCO3 ABG O2 Saturation ABG Base Excess POC ABG pCO2 ABG Hemoglobin ABG Oxyhemoglobin ABG Glucose Oxyhemoglobin Sodium Potassium Chloride Carbon Dioxide BUN Creatinine Glucose POC Glucose 152 H 132 H 159 H Lactic Acid Calcium Phosphorus Magnesium AST ALT Lactate Dehydrogenase CK-MB (CK-2) C-Reactive Protein NT-Pro-B Natriuret Pep Total Protein Albumin Arterial Blood Glucose Urine WBC (Auto) Urine Creatinine 01/30/20 01/30/20 01/30/20 12:27 17:42 23:28 WBC RBC Hgb Hct MCHC RDW MCV MCH Lymph % (Auto) [place] % (Auto) [place] # Eos # Lymph # (Auto) [place] # (Auto) Eos # (Auto) Seg Neutrophils % Seg Neuts % (Manual) Baso # (Auto) Lymphocytes % (Manual) Monocytes % (Manual) Eosinophils % (Manual) Basophils % (Manual) Seg Neutrophils # Seg Neutrophils # Man Lymphocytes # (Manual) Monocytes # (Manual) Eosinophils # (Manual) Nucleated RBC % Basophils # (Manual) PT INR APTT Heparin Anti-Xa Level ABG pH POC ABG pO2 ABG pO2 ABG HCO3 ABG O2 Saturation ABG Base Excess POC ABG pCO2 ABG Hemoglobin ABG Oxyhemoglobin ABG Glucose Oxyhemoglobin Sodium Potassium Chloride Carbon Dioxide BUN Creatinine Glucose POC Glucose 151 H 144 H 164 H Lactic Acid Calcium Phosphorus Magnesium AST ALT Lactate Dehydrogenase CK-MB (CK-2) C-Reactive Protein NT-Pro-B Natriuret Pep Total Protein Albumin Arterial Blood Glucose Urine WBC (Auto) Urine Creatinine 01/31/20 01/31/20 01/31/20 05:51 11:51 18:06 WBC RBC Hgb Hct MCHC RDW MCV MCH Lymph % (Auto) [place] % (Auto) [place] # Eos # Lymph # (Auto) [place] # (Auto) Eos # (Auto) Seg Neutrophils % Seg Neuts % (Manual) Baso # (Auto) Lymphocytes % (Manual) Monocytes % (Manual) Eosinophils % (Manual) Basophils % (Manual) Seg Neutrophils # Seg Neutrophils # Man Lymphocytes # (Manual) Monocytes # (Manual) Eosinophils # (Manual) Nucleated RBC % Basophils # (Manual) PT INR APTT Heparin Anti-Xa Level ABG pH POC ABG pO2 ABG pO2 ABG HCO3 ABG O2 Saturation ABG Base Excess POC ABG pCO2 ABG Hemoglobin ABG Oxyhemoglobin ABG Glucose Oxyhemoglobin Sodium Potassium Chloride Carbon Dioxide BUN Creatinine Glucose POC Glucose 131 H 167 H 210 H Lactic Acid Calcium Phosphorus Magnesium AST ALT Lactate Dehydrogenase CK-MB (CK-2) C-Reactive Protein NT-Pro-B Natriuret Pep Total Protein Albumin Arterial Blood Glucose Urine WBC (Auto) Urine Creatinine 01/31/20 01/31/20 02/01/20 19:24 Unknown 00:34 WBC RBC Hgb Hct MCHC RDW MCV MCH Lymph % (Auto) [place] % (Auto) [place] # Eos # Lymph # (Auto) [place] # (Auto) Eos # (Auto) Seg Neutrophils % Seg Neuts % (Manual) Baso # (Auto) Lymphocytes % (Manual) Monocytes % (Manual) Eosinophils % (Manual) Basophils % (Manual) Seg Neutrophils # Seg Neutrophils # Man Lymphocytes # (Manual) Monocytes # (Manual) Eosinophils # (Manual) Nucleated RBC % Basophils # (Manual) PT INR APTT Heparin Anti-Xa Level ABG pH POC ABG pO2 ABG pO2 ABG HCO3 ABG O2 Saturation ABG Base Excess POC ABG pCO2 ABG Hemoglobin ABG Oxyhemoglobin ABG Glucose Oxyhemoglobin Sodium Potassium Chloride 95.3 L Carbon Dioxide 33 H BUN 36 H Creatinine Glucose 187 H POC Glucose 116 H Lactic Acid Calcium Phosphorus Magnesium AST ALT Lactate Dehydrogenase CK-MB (CK-2) C-Reactive Protein NT-Pro-B Natriuret Pep Total Protein Albumin Arterial Blood Glucose Urine WBC (Auto) Urine Creatinine 57.4 H 02/01/20 02/01/20 02/01/20 05:24 10:40 12:29 WBC RBC Hgb Hct MCHC RDW MCV MCH Lymph % (Auto) [place] % (Auto) [place] # Eos # Lymph # (Auto) [place] # (Auto) Eos # (Auto) Seg Neutrophils % Seg Neuts % (Manual) Baso # (Auto) Lymphocytes % (Manual) Monocytes % (Manual) Eosinophils % (Manual) Basophils % (Manual) Seg Neutrophils # Seg Neutrophils # Man Lymphocytes # (Manual) Monocytes # (Manual) Eosinophils # (Manual) Nucleated RBC % Basophils # (Manual) PT INR APTT Heparin Anti-Xa Level ABG pH POC ABG pO2 ABG pO2 ABG HCO3 ABG O2 Saturation ABG Base Excess POC ABG pCO2 ABG Hemoglobin ABG Oxyhemoglobin ABG Glucose Oxyhemoglobin Sodium Potassium Chloride Carbon Dioxide BUN Creatinine Glucose POC Glucose 142 H 165 H 151 H Lactic Acid Calcium Phosphorus Magnesium AST ALT Lactate Dehydrogenase CK-MB (CK-2) C-Reactive Protein NT-Pro-B Natriuret Pep Total Protein Albumin Arterial Blood Glucose Urine WBC (Auto) Urine Creatinine 02/01/20 02/01/20 02/02/20 17:16 23:23 06:36 WBC RBC Hgb Hct MCHC RDW MCV MCH Lymph % (Auto) [place] % (Auto) [place] # Eos # Lymph # (Auto) [place] # (Auto) Eos # (Auto) Seg Neutrophils % Seg Neuts % (Manual) Baso # (Auto) Lymphocytes % (Manual) Monocytes % (Manual) Eosinophils % (Manual) Basophils % (Manual) Seg Neutrophils # Seg Neutrophils # Man Lymphocytes # (Manual) Monocytes # (Manual) Eosinophils # (Manual) Nucleated RBC % Basophils # (Manual) PT INR APTT Heparin Anti-Xa Level ABG pH POC ABG pO2 ABG pO2 ABG HCO3 ABG O2 Saturation ABG Base Excess POC ABG pCO2 ABG Hemoglobin ABG Oxyhemoglobin ABG Glucose Oxyhemoglobin Sodium Potassium Chloride Carbon Dioxide BUN Creatinine Glucose POC Glucose 137 H 145 H 181 H Lactic Acid Calcium Phosphorus Magnesium AST ALT Lactate Dehydrogenase CK-MB (CK-2) C-Reactive Protein NT-Pro-B Natriuret Pep Total Protein Albumin Arterial Blood Glucose Urine WBC (Auto) Urine Creatinine 02/02/20 02/02/20 10:01 12:05 WBC RBC Hgb Hct MCHC RDW MCV MCH Lymph % (Auto) [place] % (Auto) [place] # Eos # Lymph # (Auto) [place] # (Auto) Eos # (Auto) Seg Neutrophils % Seg Neuts % (Manual) Baso # (Auto) Lymphocytes % (Manual) Monocytes % (Manual) Eosinophils % (Manual) Basophils % (Manual) Seg Neutrophils # Seg Neutrophils # Man Lymphocytes # (Manual) Monocytes # (Manual) Eosinophils # (Manual) Nucleated RBC % Basophils # (Manual) PT INR APTT Heparin Anti-Xa Level ABG pH POC ABG pO2 ABG pO2 ABG HCO3 ABG O2 Saturation ABG Base Excess POC ABG pCO2 ABG Hemoglobin ABG Oxyhemoglobin ABG Glucose Oxyhemoglobin Sodium Potassium Chloride 95.3 L Carbon Dioxide BUN 44 H Creatinine Glucose 234 H POC Glucose 184 H Lactic Acid Calcium Phosphorus Magnesium AST 363 H ALT 457 H Lactate Dehydrogenase CK-MB (CK-2) C-Reactive Protein NT-Pro-B Natriuret Pep Total Protein Albumin 3.0 L Arterial Blood Glucose Urine WBC (Auto) Urine Creatinine Chest x-ray: pending Allied health notes reviewed: nursing
[2020-02-02] MEDS ORDERED: METOCLOPRAMIDE 10 MG/2 ML INJ IV PRN (13:13)
--- NOTE | 2020-02-02 13:41 | XRay Report ---
CHEST 1 VIEW 02/02/2020 12:31 PM INDICATION / CLINICAL INFORMATION: aspiration. COMPARISON: 02/01/2020 FINDINGS: SUPPORT DEVICES: Tracheostomy tube appears unchanged HEART / MEDIASTINUM: Unchanged LUNGS / PLEURA: There is mild improvement in opacities bilaterally. No pneumothorax. ADDITIONAL FINDINGS: No significant additional findings. IMPRESSION: 1. Interval improvement. Signer Name: Jcarlos Ansari MD Signed: 02/02/2020 1:37 PM Workstation Name: [id number]
--- NOTE | 2020-02-02 13:43 | XRay Report ---
ABDOMEN 1 VIEW 02/02/2020 12:31 PM INDICATION / CLINICAL INFORMATION: obtruction. COMPARISON: 01/20/2020 FINDINGS: TUBES / LINES: PEG tube appears unchanged BOWEL GAS PATTERN: No significant abnormality. FREE AIR / EXTRALUMINAL GAS: None. ADDITIONAL FINDINGS: No significant additional findings. IMPRESSION: No significant change Signer Name: Jcarlos Ansari MD Signed: 02/02/2020 1:39 PM Workstation Name: [id number]
[2020-02-02] MEDS: METOPROLOL TARTRATE 5 MG/5 ML INJ IV PRN (15:30)
--- NOTE | 2020-02-02 18:54 | Progress Note ---
Assessment and Plan -Ischemic cardiomyopathy Cardiology is following, status post cardiac catheterization on 01/22/2020; Coronary artery disease status post PCI and stent to the LAD Continue current cardiac medications --Acute on chronic hypoxemic respiratory failure; Patient has tracheostomy on vent Continue nebulizers, , trach care Wean off ventilator as tolerated Pulmonary critical following --Acute exacerbation of COPD; Patient is currently on ventilatory support Continue nebulizers --Left lower lobe PE; Continue Eliquis, ventilatory support --Acute right lower extremity DVT; Patient is on Eliquis --Bilateral multifocal pneumonia/community-acquired Completed antibiotics, improved --Severe sepsis/bilateral pneumonia: Completed antibiotics COVID-19 test; 11/24/2019; negative 11/26/2019; negative 12/29/2019: Negative --Paroxysmal atrial fibrillation; Now rate controlled, Stable on amiodarone and Eliquis --Acute on chronic combined systolic and diastolic congestive heart failure Ischemic cardiomyopathy left ventricular ejection fraction 40 to 45% --H/o CAD [[facility] 12/2018 in-stent restenosis] Patient is stable on current cardiac medications Patient is a 64-year-old male with known history of hypertension, COPD, history of coronary artery disease, CHF with ejection fraction of 20 to 25% in August 2018 presenting to the emergency room via EMS complaining of shortness of breath. Patient was found to be hypoxic and in respiratory distress. Patient was placed on CPAP in route to the hospital. Patient remained hypoxic on CPAP BiPAP ,sub sequently was intubated. Work-up in the emergency room including chest x-ray reveals bilateral pneumonia. He had an elevated white count of 14 and also had an elevated BNP. sputum cultures positive for Pseudomonas, ID treated with cefepime and Vanco. His hospital course became complicated with acute PE, DVT, paroxysmal atrial fib - placed on chronic anticoagulation. Patient was difficult to wean off, status post trach and PEG, remains on mechanical ventilation with trach tube. He then developed partial small bowel obstruction valuated by general surgeon symptom improved with medical Mx, patient was briefly weaned off ventilatory support however, was in respiratory failure requiring full ventilatory support. Cardiac catheterization on 01/22/2020. No new issues overnight. --Hypertensive emergency; present on admission Reasonable blood pressures, continue current antihypertensives As needed medications Most stents were patent. --History of alcohol abuse/alcohol withdrawal; Was on CIWA protocol, now stable --Oropharyngeal dysphagia; status post PEG placement Continue PEG feeds per protocol --History of partial small bowel obstruction; resolved Surgery evaluated. At present not a surgical candidate. --Obesity; BMI 34.7 Patient needs weight reduction when medically stable --Severe protein calorie malnutrition/hypoalbuminemia Nutrition supplements, dietitian following, PEG feeds --DVT prophylaxis;Eliquis --Full CODE STATUS 01/05; Pt stable. NGT output 650cc over 24 hours, bilious. No f/c, WBC within normal limits. cont NG suction and cont to hold TF 01/06: Abs series - mild improvement in small bowel distension in mid abdomen, normal gas/stool pattern in colon. NGT in duodenum. Continue to hold tube feeding, maintain NG tube with low intermittent suction. Patient's was updated by phone. Continue to provide supportive care and monitor clinically. 01/07: +BMs today and NGT/PEG output appears more gastric today. Plan to clamp NGT, if tolerates start TF from tomorrow. cont supportive care. 01/08; Gastric output decreased over last 24 hours. NGT has been clamped x 24 hours. plan to dc NGT and to start TTF via PEG - vital HF @10cc/hr 01/09: clinically stable, tolerating TF. monitor BMP, wean off from vent as tolerated clinically stable, on TF. wean off vent as tolerated 01/11: wean off from vent, cont to monitor, on TF 01/12: wean off from vent, cont to monitor, on TF. need placement - unfunded 01/13; remains on ventilatory support, unable to wean, DC planning possible LTAC, unfunded 01/14; patient of ventilatory support, T-piece tracheostomy on oxygen, LTAC placement per case management 01/16; tracheostomy, patient on full ventilatory support, wean off vent support as tolerated, pending LTAC placement, social financial issues 01/17; awaiting LTAC placement, insurance and financial issues 01/18; patient tracheostomy remains on ventilatory support 01/19; wean off ventilator as tolerated 01/20; remains on ventilatory support, patient complains of intermittent chest pain, cardiology recommend left heart catheterization tomorrow 01/22/2020. Patient for left heart catheterization per cardiology. Patient remains on AC mode ventilation rate 12, tidal volume 450, FiO2 30% and PEEP of 6. Continue tracheostomy care, airway management and secretion control. 01/23/2020. Cardiac catheterization completed yesterday revealed widely patent previous LAD stent with mild nonobstructive atherosclerosis of the right mid coronary artery and rest of the coronary system was without significant atherosclerosis. The left ventricle ejection fraction was mildly impaired at 40 to 45%. There was some hypokinesis of the basal inferior wall suggestive of previous or recent infarct. Continue GDMT for coronary artery disease including beta blockers, topical nitrates, statin and Plavix. Continue Eliquis for paroxysmal atrial fibrillation and PE. Continue diuresis with Lasix and follow electrolytes closely. Continue Robinul and scopolamine for secretion control and daily SBT per pulmonary. Also, continue bronchodilators and routine trach care/airway management. T-piece trials per pulmonary as tolerated. 01/24/2020. Recent cardiac catheterization has documented widely patent left anterior descending artery stent with minimal nonobstructive diffuse coronary artery disease in the rest of the coronary arteries. Evidence of ischemic c ardiomyopathy with inferior wall hypokinesis. Continue with guideline directed medical therapy. Continue Robinul and scopolamine for secretion control and daily SBT per pulmonary. Continue bronchodilators and routine trach care/airway management. T-piece trials per pulmonary as tolerated. 01/25/2020. Continue with guideline directed medical therapy for systolic heart failure. Cardiac catheterization revealed evidence of ischemic cardiomyopathy with inferior wall hypokinesis (EF 40-45%). Patient currently on T-piece with oxygen 10 L/min FiO2 40%. Continue Robinul and scopolamine for secretion control. Continue bronchodilators and routine trach care/airway management. 01/26/2020;Continue with guideline directed medical therapy for systolic heart failure. Cardiac catheterization revealed evidence of ischemic cardiomyopathy with inferior wall hypokinesis (EF 40-45%). Patient currently on T-piece with oxygen 10 L/min FiO2 40%. Continue Robinul and scopolamine for secretion cont rol. Continue bronchodilators and routine trach care/airway management. 01/27/2020Continue with guideline directed medical therapy for systolic heart failure. Cardiac catheterization revealed evidence of ischemic cardiomyopathy with inferior wall hypokinesis (EF 40-45%). Patient currently on T-piece with oxygen 10 L/min FiO2 40%. Continue Robinul and scopolamine for secretion control. Continue bronchodilators and routine trach care/airway management. 01/28/2020Continue with guideline directed medical therapy for systolic heart failure. Cardiac catheterization revealed evidence of ischemic cardiomyopathy with inferior wall hypokinesis (EF 40-45%). Patient currently on T-piece with oxygen 10 L/min FiO2 40%. Continue Robinul and scopolamine for secretion control. Continue bronchodilators and routine trach care/airway management. 01/29/2020 Continue with guideline directed medical therapy for systolic heart failure. Cardiac catheterization revealed evidence of ischemic cardiomyopathy with inferior wall hypokinesis (EF 40-45%). Patient currently on T-piece with oxygen 10 L/min FiO2 40%. Continue Robinul and scopolamine for secretion control. Continue bronchodilators and routine trach care/airway management. 01/30/2020 Continue with guideline directed medical therapy for systolic heart failure. Cardiac catheterization revealed evidence of ischemic cardiomyopathy with inferior wall hypokinesis (EF 40-45%). Patient currently on T-piece with oxygen 10 L/min FiO2 40%. Continue Robinul and scopolamine for secretion control. Continue bronchodilators and routine trach care/airway management. Patient has recurrent A. fib and currently on amiodarone, continue beta-hebert, and Eliquis. Patient is on IV diuresis January 31, 2020. Patient resting comfortably. Catheterization with inferior wall hypokinesis ejection fraction 40 to 45%. Was unable to wean tracheostomy at this time. Failed T-piece trial initially. Secretions improved with addition of Robinul. Pulmonology for trach care and airway management and continue to wean. Atrial fibrillation rate well controlled at 81. Currently on amiodarone beta- hebert and anticoagulation with Eliquis. CHF continue present diuresis. February 01, 2020. Patient resting comfortably. No new concerns at this time patient is anticipating discharge. Still failed T-piece trial at this time again. Patient secretions have improved with Robinul all. Atrial fibrillation heart rate 70s to 80s. Well-controlled current anticoagulation Congestive heart failure compensated at this particular time. February 02, 2020 Patient with episode of projectile vomiting. Most likely source partial bowel obstruction versus tube feeds. Will obtain chest x-ray to rule out aspiration. We will also hold tube feeds for 12 hours and obtain KUB. Area tracheostomy needs to be cleaned out as well. Patient obviously has failed T-piece trial again this time. Resume weaning parameters in a.m. Unlikely the secretions that have been fairly well controlled. Atrial fibrillation rate have remained well controlled. Continue amiodarone and beta-hebert. Metoprolol. Congestive heart failure ejection fraction 40 to 45% patient had inferior wall hypokinesis on catheterization otherwise stable. Continue present diuresis Acute respiratory failure unable to wean tracheostomy at this time. Failed T- piece trial again. Despite improve secretions. Continue bronchodilators and weaning parameters. Projectile vomiting. Rule out small bowel obstruction rule out ileus. Will hold tube feeds obtain imaging to rule out aspiration and bowel obstruction as well. Continue antibiotics. Subjective Date of service: 02/02/20 Principal diagnosis: Ac hypoxemic resp failure; Pneumonia; PUI COVID-19; CHF; COPD; HTN Interval history: Patient hospice course complicated by projectile vomiting. Patient was not able to confirm any abdominal pain. During that time patient became somewhat tachycardic with coughing and vomitus endotracheal tube. Objective - Constitutional Vitals: Vital Signs - 12hr 02/02/20 02/02/20 02/02/20 07:00 07:58 08:00 Temperature 100.2 F H Pulse Rate 122 H 123 H Pulse Rate [ 123 H From Monitor] Respiratory 12 25 H Rate Blood Pressure 114/81 139/100 O2 Sat by Pulse 84 96 Oximetry O2 Sat by Pulse Oximetry [ Assessment] 02/02/20 02/02/20 02/02/20 08:04 08:08 08:40 Temperature Pulse Rate 124 H Pulse Rate [ From Monitor] Respiratory Rate Blood Pressure 139/103 O2 Sat by Pulse 96 Oximetry O2 Sat by Pulse 96 Oximetry [ Assessment] 02/02/20 02/02/20 02/02/20 09:00 10:00 11:00 Temperature Pulse Rate 122 H 119 H 119 H Pulse Rate [ From Monitor] Respiratory 25 H 22 25 H Rate Blood Pressure 129/99 118/71 115/92 O2 Sat by Pulse 91 93 81 L Oximetry O2 Sat by Pulse Oximetry [ Assessment] 02/02/20 02/02/20 02/02/20 11:33 12:00 13:01 Temperature 98.4 F Pulse Rate 119 H 122 H 122 H Pulse Rate [ 122 H From Monitor] Respiratory 21 30 H Rate Blood Pressure 111/73 126/98 126/96 O2 Sat by Pulse 100 90 82 L Oximetry O2 Sat by Pulse Oximetry [ Assessment] 02/02/20 02/02/20 02/02/20 14:01 14:09 15:00 Temperature Pulse Rate 105 H 116 H 141 H Pulse Rate [ From Monitor] Respiratory 14 23 Rate Blood Pressure 111/77 111/77 122/92 O2 Sat by Pulse 90 85 Oximetry O2 Sat by Pulse Oximetry [ Assessment] 02/02/20 02/02/20 02/02/20 15:30 15:39 16:00 Temperature 99.3 F 99.8 F H Pulse Rate 130 H 130 H Pulse Rate [ 130 H From Monitor] Respiratory 22 Rate Blood Pressure 118/85 119/84 O2 Sat by Pulse 87 Oximetry O2 Sat by Pulse Oximetry [ Assessment] 02/02/20 02/02/20 02/02/20 16:50 17:01 18:01 Temperature Pulse Rate 102 H 114 H 126 H Pulse Rate [ From Monitor] Respiratory 15 14 Rate Blood Pressure 131/84 128/82 143/85 O2 Sat by Pulse 96 93 90 Oximetry O2 Sat by Pulse 96 Oximetry [ Assessment] 02/02/20 18:26 Temperature Pulse Rate 116 H Pulse Rate [ From Monitor] Respiratory Rate Blood Pressure 140/83 O2 Sat by Pulse Oximetry O2 Sat by Pulse Oximetry [ Assessment] General appearance: Present: mild distress, other (Diaphoretic) - EENT ENT: other (Less responsive after an episode.) - Neck Neck: supple, normal ROM - Respiratory Respiratory: bilateral: diminished, wheezing (Cough wheezing) - Cardiovascular Heart rate: 102 Heart Sounds: Present: S1 & S2. Absent: gallop, rub Extremity abnormal: edema, tenderness, other (Moves all extremities) - Gastrointestinal General gastrointestinal: Present: non-tender, distended, hypoactive bowel sounds. Absent: hepatomegaly, splenomegaly - Integumentary Integumentary: clear, warm, dry - Musculoskeletal Musculoskeletal: generalized weakness - Neurologic Neurologic: other (No focal deficits.) - Psychiatric Psychiatric: appropriate mood/affect - Labs CBC & Chem 7: 01/28/20 04:37 02/02/20 10:01 Labs: Abnormal lab results 02/01/20 02/01/20 02/02/20 Range/Units 10:40 23:23 06:36 Chloride (98-107) mmol/L BUN (9-20) mg/dL Glucose (75-100) mg/dL POC Glucose 165 H 145 H 181 H (70-105) mg/dL AST (5-40) units/L ALT (7-56) units/L Albumin (3.9-5) g/dL 02/02/20 02/02/20 02/02/20 Range/Units 10:01 12:05 17:54 Chloride 95.3 L (98-107) mmol/L BUN 44 H (9-20) mg/dL Glucose 234 H (75-100) mg/dL POC Glucose 184 H 127 H (70-105) mg/dL AST 363 H (5-40) units/L ALT 457 H (7-56) units/L Albumin 3.0 L (3.9-5) g/dL - Imaging and cardiology Chest x-ray: image reviewed Abdominal x-ray: image reviewed HEART Score - HEART Score Troponin: Troponin T < 0.010 ng/mL (0.00-0.029) 01/19/20 01:35
[2020-02-02] MEDS: POLYETHYLENE GLYCOL 3350 17 GM POWDER PO SCH (21:47)
[2020-02-02] MEDS: TAMSULOSIN 0.4 MG CAP PO SCH (21:47)
[2020-02-03] MEDS: METOPROLOL TARTRATE 5 MG/5 ML INJ IV PRN ×2 (00:20→07:16)
[2020-02-03] MEDS: METOPROLOL TARTRATE 25 MG TAB PO SCH ×4 (01:00→20:43)
[2020-02-03] MEDS: fentaNYL DRIP Premix 2,000 MCG/100 ML BAG IV SCH (06:26)
[2020-02-03] MEDS: INSULIN REGULAR, HUMAN 100 UNIT/ML 3ML VIAL SUB-Q SCH ×3 (06:26→18:28)
[2020-02-03] MEDS: FUROSEMIDE 20 MG TAB PO SCH (06:26)
[2020-02-03] MEDS: MIDODRINE 5 MG TAB PO SCH ×3 (07:17→16:41)
[2020-02-03] MEDS: ACETAMINOPHEN 325 MG/10.15 ML ORAL LIQD UNIT DOSE FEEDTUBE PRN ×2 (07:44→12:54)
[2020-02-03 07:58] LABS: Basophils # (Auto) 0.1 K/mm3 (0.0-0.1); Basophils % (Auto) 0.6 % (0.0-1.8); Eosinophils % (Auto) 0.2 % (0.0-4.3); Hematocrit 30.8 % (35.5-45.6); Hemoglobin 9.5 gm/dl (11.8-15.2); Lymphocytes # (Auto) 2.3 K/mm3 (1.2-5.4); Lymphocytes % (Auto) 17.5 % (13.4-35.0); Mean Corpuscular HGB Conc 31 % (32-34); Mean Corpuscular Volume 81 fl (84-94); Monocytes # (Auto) 1.2 K/mm3 (0.0-0.8); Monocytes % (Auto) 9.4 % (0.0-7.3); Platelet Count 275 K/mm3 (140-440); Red Cell Distribution Width 19.6 % (13.2-15.2)
--- NOTE | 2020-02-03 08:13 | Progress Note ---
Assessment and Plan Assessment and plan: Patient is a 64-year-old male with known history of hypertension, COPD, history of coronary artery disease, CHF with ejection fraction of 20 to 25% in August 2018 presenting to the emergency room via EMS complaining of shortness of breath. Patient was found to be hypoxic and in respiratory distress. Patient was placed on CPAP in route to the hospital. Patient remained hypoxic on CPAP BiPAP ,subsequently was intubated. Work-up in the emergency room including chest x-ray reveals bilateral pneumonia. He had an elevated white count of 14 and also had an elevated BNP. sputum cultures positive for Pseudomonas, ID treated with cefepime and Vanco. His hospital course became complicated with acute PE, DVT, paroxysmal atrial fib - placed on chronic anticoagulation. Patient was difficult to wean off, status post trach and PEG, remains on mechanical ventilation with trach tube. He then developed partial small bowel obstruction valuated by general surgeon symptom improved with medical Mx, patient was briefly weaned off ventilatory support however, was in respiratory failure requiring full ventilatory support. Cardiac catheterization on 01/22/2020. No new issues overnight. -Ischemic cardiomyopathy Cardiology is following, status post cardiac catheterization on 01/22/2020; Coronary artery disease status post PCI and stent to the LAD Continue current cardiac medications --Acute on chronic hypoxemic respiratory failure; Patient has tracheostomy on vent Continue nebulizers, , trach care Wean off ventilator as tolerated Pulmonary critical following --Acute exacerbation of COPD; Patient is currently on ventilatory support Continue nebulizers --Left lower lobe PE; Continue Eliquis, ventilatory support --Acute right lower extremity DVT; Patient is on Eliquis --Bilateral multifocal pneumonia/community-acquired Completed antibiotics, improved --Severe sepsis/bilateral pneumonia: Completed antibiotics COVID-19 test; 11/24/2019; negative 11/26/2019; negative 12/29/2019: Negative --atrial fibrillation WITH RVR Now rate controlled, Stable on amiodarone and Eliquis --Acute on chronic combined systolic and diastolic congestive heart failure Ischemic cardiomyopathy left ventricular ejection fraction 40 to 45% --H/o CAD [[facility] 12/2018 in-stent restenosis] --Hypertensive emergency; present on admission Reasonable blood pressures, continue current antihypertensives As needed medications Most stents were patent. --History of alcohol abuse/alcohol withdrawal; Was on CIWA protocol, now stable --Oropharyngeal dysphagia; status post PEG placement Continue PEG feeds per protocol --History of partial small bowel obstruction; resolved Surgery evaluated. At present not a surgical candidate. --Obesity; BMI 34.7 Patient needs weight reduction when medically stable --Severe protein calorie malnutrition/hypoalbuminemia Nutrition supplements, dietitian following, PEG feeds --DVT prophylaxis;Eliquis --Full CODE STATUS 01/05; Pt stable. NGT output 650cc over 24 hours, bilious. No f/c, WBC within normal limits. cont NG suction and cont to hold TF 01/06: Abs series - mild improvement in small bowel distension in mid abdomen, normal gas/stool pattern in colon. NGT in duodenum. Continue to hold tube feeding, maintain NG tube with low intermittent suction. Patient's was updated by phone. Continue to provide supportive care and monitor clinically. 01/07: +BMs today and NGT/PEG output appears more gastric today. Plan to clamp NGT, if tolerates start TF from tomorrow. cont supportive care. 01/08; Gastric output decreased over last 24 hours. NGT has been clamped x 24 hours. plan to dc NGT and to start TTF via PEG - vital HF @10cc/hr 01/09: clinically stable, tolerating TF. monitor BMP, wean off from vent as tolerated clinically stable, on TF. wean off vent as tolerated 01/11: wean off from vent, cont to monitor, on TF 01/12: wean off from vent, cont to monitor, on TF. need placement - unfunded 01/13; remains on ventilatory support, unable to wean, DC planning possible LTAC, unfunded 01/14; patient of ventilatory support, T-piece tracheostomy on oxygen, LTAC placement per case management 01/16; tracheostomy, patient on full ventilatory support, wean off vent support as tolerated, pending LTAC placement, social financial issues 01/17; awaiting LTAC placement, insurance and financial issues 01/18; patient tracheostomy remains on ventilatory support 01/19; wean off ventilator as tolerated 01/20; remains on ventilatory support, patient complains of intermittent chest pain, cardiology recommend left heart catheterization tomorrow 01/22/2020. Patient for left heart catheterization per cardiology. Patient remains on AC mode ventilation rate 12, tidal volume 450, FiO2 30% and PEEP of 6. Continue tracheostomy care, airway management and secretion control. 01/23/2020. Cardiac catheterization completed yesterday revealed widely patent previous LAD stent with mild nonobstructive atherosclerosis of the right mid coronary artery and rest of the coronary system was without significant atherosclerosis. The left ventricle ejection fraction was mildly impaired at 40 to 45%. There was some hypokinesis of the basal inferior wall suggestive of previous or recent infarct. Continue GDMT for coronary artery disease including beta blockers, topical nitrates, statin and Plavix. Continue Eliquis for paroxysmal atrial fibrillation and PE. Continue diuresis with Lasix and follow electrolytes closely. Continue Robinul and scopolamine for secretion control and daily SBT per pulmonary. Also, continue bronchodilators and routine trach care/airway management. T-piece trials per pulmonary as tolerated. 01/24/2020. Recent cardiac catheterization has documented widely patent left anterior descending artery stent with minimal nonobstructive diffuse coronary artery disease in the rest of the coronary arteries. Evidence of ischemic cardiomyopathy with inferior wall hypokinesis. Continue with guideline directed medical therapy. Continue Robinul and scopolamine for secretion control and daily SBT per pulmonary. Continue bronchodilators and routine trach care/airway management. T-piece trials per pulmonary as tolerated. 01/25/2020. Continue with guideline directed medical therapy for systolic heart failure. Cardiac catheterization revealed evidence of ischemic cardiomyopathy with inferior wall hypokinesis (EF 40-45%). Patient currently on T-piece with oxygen 10 L/min FiO2 40%. Continue Robinul and scopolamine for secretion contr ol. Continue bronchodilators and routine trach care/airway management. 01/26/2020;Continue with guideline directed medical therapy for systolic heart failure. Cardiac catheterization revealed evidence of ischemic cardiomyopathy with inferior wall hypokinesis (EF 40-45%). Patient currently on T-piece with oxygen 10 L/min FiO2 40%. Continue Robinul and scopolamine for secretion control. Continue bronchodilators and routine trach care/airway management. 01/27/2020Continue with guideline directed medical therapy for systolic heart failure. Cardiac catheterization revealed evidence of ischemic cardiomyopathy with inferior wall hypokinesis (EF 40-45%). Patient currently on T-piece with oxygen 10 L/min FiO2 40%. Continue Robinul and scopolamine for secretion control. Continue bronchodilators and routine trach care/airway management. 01/28/2020Continue with guideline directed medical therapy for systolic heart failure. Cardiac catheterization revealed evidence of ischemic cardiomyopathy with inferior wall hypokinesis (EF 40-45%). Patient currently on T-piece with oxygen 10 L/min FiO2 40%. Continue Robinul and scopolamine for secretion control. Continue bronchodilators and routine trach care/airway management. 01/29/2020 Continue with guideline directed medical therapy for systolic heart failure. Cardiac catheterization revealed evidence of ischemic cardiomyopathy with inferior wall hypokinesis (EF 40-45%). Patient currently on T-piece with oxygen 10 L/min FiO2 40%. Continue Robinul and scopolamine for secretion control. Continue bronchodilators and routine trach care/airway management. 01/30/2020 Continue with guideline directed medical therapy for systolic heart failure. Cardiac catheterization revealed evidence of ischemic cardiomyopathy with inferior wall hypokinesis (EF 40-45%). Patient currently on T-piece with oxygen 10 L/min FiO2 40%. Continue Robinul and scopolamine for secretion control. Continue bronchodilators and routine trach care/airway management. Patient has recurrent A. fib and currently on amiodarone, continue beta-hebert, and Eliquis. Patient is on IV diuresis January 31, 2020. Patient resting comfortably. Catheterization with inferior wall hypokinesis ejection fraction 40 to 45%. Was unable to wean tracheostomy at this time. Failed T-piece trial initially. Secretions improved with addition of Robinul. Pulmonology for trach care and airway management and continue to wean. Atrial fibrillation rate well controlled at 81. Currently on amiodarone beta- hebert and anticoagulation with Eliquis. CHF continue present diuresis. February 01, 2020. Patient resting comfortably. No new concerns at this time patient is anticipating discharge. Still failed T-piece trial at this time again. Patient secretions have improved with Robinul all. Atrial fibrillation heart rate 70s to 80s. Well-controlled current anticoa gulation Congestive heart failure compensated at this particular time. February 02, 2020 Patient with episode of projectile vomiting. Most likely source partial bowel obstruction versus tube feeds. Will obtain chest x-ray to rule out aspiration. We will also hold tube feeds for 12 hours and obtain KUB. Area tracheostomy needs to be cleaned out as well. Patient obviously has failed T-piece trial again this time. Resume weaning parameters in a.m. Unlikely the secretions that have been fairly well controlled. Atrial fibrillation rate have remained well controlled. Continue amiodarone and beta-hebert. Metoprolol. Congestive heart failure ejection fraction 40 to 45% patient had inferior wall hypokinesis on catheterization otherwise stable. Continue present diuresis Acute respiratory failure unable to wean tracheostomy at this time. Failed T- piece trial again. Despite improve secretions. Continue bronchodilators and weaning parameters. Projectile vomiting. Rule out small bowel obstruction rule out ileus. Will hold tube feeds obtain imaging to rule out aspiration and bowel obstruction as well. Continue antibiotics. 02/02: Discussed with Nursing staff, patient with some mild change in mental status, not following commands like prior,WILL OBTAIN HEAD CT remains intubated on full mechanical ventilatory support. Today is my first day seeing the patient, have reviewed all records so far. Patients still with elevated heart rate of Afib with RVR continue amiodarone and metoprolol. LVEF 40 to 45%. Continue Eliquis FOR THE Acute PE/DVT. Partial SBO vs ileus- KUB is negative. Will monitor, No further vomiting noted. If no improvement will repeat a chest xray to ensure no aspiration in the last 24 hrs. Will initiate sepsis work up, Obtain cultures, cxr- no change, only showing stable bilateral pulmonary opacities, lactate checked and wnl. Mild elevation in WBC. will recheck in am. IF Continued fever, will reconsult ID. The high probability of a clinically significant, sudden or life threatening deterioration of the [Pulmonary, GI, cardiac] system(s) required my full and direct attention, intervention and personal management. The aggregate critical care time was [45] minutes. This time is in addition to time spent performing reported procedures but includes the following: [x] Data Review and interpretation [x] Patient assessment and monitoring of vital signs [x] Documentation [x] Medication orders and management History Interval history: Patient seen and examined, noted fever this afternoon per nursing staff Hospitalist Physical - Physical exam Narrative exam: General appearance: Present: well-nourished, other (Intubated), obtunded- per staff is a change from yesterday - EENT Eyes: Present: PERRL, EOM intact. Absent: scleral icterus ENT: clear oral mucosa, dentition normal - Neck Neck: Present: supple, normal ROM - Respiratory Respiratory effort: normal, mechanical ventilation Respiratory: bilateral: rales - Cardiovascular Rhythm: regular Heart Sounds: Present: S1 & S2. Absent: gallop, systolic murmur, diastolic murmur, rub - Extremities Extremities: no ischemia, pulses intact, pulses symmetrical, No edema, Full ROM Peripheral Pulses: within normal limits - Abdominal General gastrointestinal: Present: soft, non-tender, non-distended, normal bowel sounds. Absent: mass - Integumentary Integumentary: Present: clear, warm, dry. Absent: rash - Musculoskeletal Musculoskeletal: strength equal bilaterally - Psychiatric Psychiatric: cooperative - Constitutional Vitals: Temp Pulse Resp BP Pulse Ox 99.8 F H 162 H 13 107/82 97 02/03/20 04:00 02/03/20 07:16 02/03/20 07:00 02/03/20 07:16 02/03/20 07:00 General appearance: Present: mild distress, other (Diaphoretic) HEART Score - HEART Score Troponin: Troponin T < 0.010 ng/mL (0.00-0.029) 01/19/20 01:35 Results - Labs CBC & Chem 7: 02/03/20 07:04 02/03/20 07:04 Labs: Laboratory Last Values WBC 13.0 K/mm3 (4.5-11.0) H 02/03/20 07:04 RBC 3.80 M/mm3 (3.65-5.03) 02/03/20 07:04 Hgb 9.5 gm/dl (11.8-15.2) L 02/03/20 07:04 Hct 30.8 % (35.5-45.6) L 02/03/20 07:04 MCV 81 fl (84-94) L 02/03/20 07:04 MCH 25 pg (28-32) L 02/03/20 07:04 MCHC 31 % (32-34) L 02/03/20 07:04 RDW 19.6 % (13.2-15.2) H 02/03/20 07:04 Plt Count 275 K/mm3 (140-440) 02/03/20 07:04 Lymph % (Auto) 17.5 % (13.4-35.0) 02/03/20 07:04 [place] % (Auto) 9.4 % (0.0-7.3) H 02/03/20 07:04 Eos % (Auto) 0.2 % (0.0-4.3) 02/03/20 07:04 Baso % (Auto) 0.6 % (0.0-1.8) 02/03/20 07:04 Lymph # (Auto) 2.3 K/mm3 (1.2-5.4) 02/03/20 07:04 [place] # (Auto) 1.2 K/mm3 (0.0-0.8) H 02/03/20 07:04 Eos # (Auto) 0.0 K/mm3 (0.0-0.4) 02/03/20 07:04 Baso # (Auto) 0.1 K/mm3 (0.0-0.1) 02/03/20 07:04 Add Manual Diff Complete 12/19/19 11:32 Total Counted 100 12/19/19 11:32 Seg Neutrophils % 72.3 % (40.0-70.0) H 02/03/20 07:04 Seg Neuts % (Manual) 82.0 % (40.0-70.0) H 12/19/19 11:32 Band Neutrophils % 0 % 12/19/19 11:32 Lymphocytes % (Manual) 10.0 % (13.4-35.0) L 12/19/19 11:32 Reactive Lymphs % (Man) 0 % 12/19/19 11:32 Monocytes % (Manual) 6.0 % (0.0-7.3) 12/19/19 11:32 Eosinophils % (Manual) 2.0 % (0.0-4.3) 12/19/19 11:32 Basophils % (Manual) 0 % (0.0-1.8) 12/19/19 11:32 Metamyelocytes % 0 % 12/19/19 11:32 Myelocytes % 0 % 12/19/19 11:32 Promyelocytes % 0 % 12/19/19 11:32 Blast Cells % 0 % 12/19/19 11:32 Nucleated RBC % 1.0 % (0.0-0.9) H 12/19/19 11:32 Seg Neutrophils # 9.4 K/mm3 (1.8-7.7) H 02/03/20 07:04 Seg Neutrophils # Man 12.0 K/mm3 (1.8-7.7) H 12/19/19 11:32 Band Neutrophils # 0.0 K/mm3 12/19/19 11:32 Lymphocytes # (Manual) 1.5 K/mm3 (1.2-5.4) 12/19/19 11:32 Abs React Lymphs (Man) 0.0 K/mm3 12/19/19 11:32 Monocytes # (Manual) 0.9 K/mm3 (0.0-0.8) H 12/19/19 11:32 Eosinophils # (Manual) 0.3 K/mm3 (0.0-0.4) 12/19/19 11:32 Basophils # (Manual) 0.0 K/mm3 (0.0-0.1) 12/19/19 11:32 Metamyelocytes # 0.0 K/mm3 12/19/19 11:32 Myelocytes # 0.0 K/mm3 12/19/19 11:32 Promyelocytes # 0.0 K/mm3 12/19/19 11:32 Blast Cells # 0.0 K/mm3 12/19/19 11:32 WBC Morphology Not Reportable 12/19/19 11:32 Hypersegmented Neuts Not Reportable 12/19/19 11:32 Hyposegmented Neuts Not Reportable 12/19/19 11:32 Hypogranular Neuts Not Reportable 12/19/19 11:32 Smudge Cells Not Reportable 12/19/19 11:32 Toxic Granulation Not Reportable 12/19/19 11:32 Toxic Vacuolation Not Reportable 12/19/19 11:32 Dohle Bodies Not Reportable 12/19/19 11:32 Pelger-Huet Anomaly Not Reportable 12/19/19 11:32 Hector Rods Not Reportable 12/19/19 11:32 Platelet Estimate Consistent w auto 12/19/19 11:32 Clumped Platelets Not Reportable 12/19/19 11:32 Plt Clumps, EDTA Not Reportable 12/19/19 11:32 Large Platelets Not Reportable 12/19/19 11:32 Giant Platelets Not Reportable 12/19/19 11:32 Platelet Satelliting Not Reportable 12/19/19 11:32 Plt Morphology Comment Not Reportable 12/19/19 11:32 RBC Morphology Not Reportable 12/19/19 11:32 Dimorphic RBCs Not Reportable 12/19/19 11:32 Polychromasia Not Reportable 12/19/19 11:32 Hypochromasia Few 12/19/19 11:32 Poikilocytosis Not Reportable 12/19/19 11:32 Anisocytosis 1+ 12/19/19 11:32 Microcytosis Few 12/19/19 11:32 Macrocytosis Few 12/19/19 11:32 Spherocytes Not Reportable 12/19/19 11:32 Pappenheimer Bodies Not Reportable 12/19/19 11:32 Sickle Cells Not Reportable 12/19/19 11:32 Target Cells Not Reportable 12/19/19 11:32 Tear Drop Cells Not Reportable 12/19/19 11:32 Ovalocytes Not Reportable 12/19/19 11:32 Helmet Cells Not Reportable 12/19/19 11:32 Gottlieb[place] Bodies Not Reportable 12/19/19 11:32 Boyers Rings Not Reportable 12/19/19 11:32 Oc Cells Not Reportable 12/19/19 11:32 Bite Cells Not Reportable 12/19/19 11:32 Crenated Cell Not Reportable 12/19/19 11:32 Elliptocytes Not Reportable 12/19/19 11:32 Acanthocytes (Spur) Not Reportable 12/19/19 11:32 Rouleaux Not Reportable 12/19/19 11:32 Hemoglobin C Crystals Not Reportable 12/19/19 11:32 Schistocytes Not Reportable 12/19/19 11:32 Malaria parasites Not Reportable 12/19/19 11:32 Clifford Bodies Not Reportable 12/19/19 11:32 Hem Pathologist Commnt No 12/19/19 11:32 PT 16.9 Sec. (12.2-14.9) H 01/22/20 09:58 INR 1.34 (0.87-1.13) H 01/22/20 09:58 APTT 31.5 Sec. (24.2-36.6) 01/22/20 09:58 Heparin Anti-Xa Level 1.34 U.I./ml (0.3-0.7) H 01/22/20 04:45 ABG pH 7.447 pH Units (7.350-7.450) 01/25/20 21:02 POC ABG pCO2 45.6 mmHg (32.0-48.0) 01/12/20 13:58 ABG pCO2 47.0 mm Hg 01/25/20 21:02 POC ABG pO2 76.6 mmHg (83-108) L 01/12/20 13:58 ABG pO2 57.5 mm Hg (80.0-90.0) L 01/25/20 21:02 POC ABG HCO3 31.2 01/12/20 13:58 ABG HCO3 31.7 mmol/L (20.0-26.0) H 01/25/20 21:02 ABG O2 Saturation 90.3 % (95.0-99.0) L 01/25/20 21:02 ABG O2 Content 16.0 (0.0-44) 01/25/20 21:02 POC ABG Base Excess 6.5 01/12/20 13:58 ABG Base Excess 6.6 mmol/L (-2.0-3.0) H 01/25/20 21:02 ABG Hemoglobin 13.0 gm/dl (14.0-18.0) L 01/25/20 21:02 ABG Oxyhemoglobin 84 (94-98) L 12/22/19 03:22 ABG Carboxyhemoglobin 2.5 % (0.0-5.0) 01/25/20 21:02 ABG Methemoglobin 0.6 % (0.0-1.5) 01/25/20 21:02 ABG Sodium 136.8 mmol/L (136.0-145.0) 01/12/20 13:58 ABG Potassium 3.7 mmol/L (3.40-4.50) 01/12/20 13:58 ABG Chloride 103.0 mmol/L (98-107) 01/12/20 13:58 ABG Glucose 99 mg/dL (65-95) H 01/12/20 13:58 Oxyhemoglobin 87.5 % (95.0-99.0) L 01/25/20 21:02 Carboxyhemoglobin 0.7 (0.5-1.5) 12/22/19 03:22 FiO2 40 % 01/25/20 21:02 Sodium 137 mmol/L (137-145) 02/02/20 10:01 Potassium 3.6 mmol/L (3.6-5.0) 02/02/20 10:01 Chloride 95.3 mmol/L (98-107) L 02/02/20 10:01 Carbon Dioxide 30 mmol/L (22-30) 02/02/20 10:01 Anion Gap 15 mmol/L 02/02/20 10:01 BUN 44 mg/dL (9-20) H 02/02/20 10:01 Creatinine 1.1 mg/dL (0.8-1.3) 02/02/20 10:01 Estimated GFR > 60 ml/min 02/02/20 10:01 BUN/Creatinine Ratio 40 % 02/02/20 10:01 Glucose 234 mg/dL (75-100) H 02/02/20 10:01 POC Glucose 129 mg/dL (70-105) H 02/03/20 05:32 Lactic Acid 2.50 mmol/L (0.7-2.0) H* 11/24/19 10:37 Calcium 9.2 mg/dL (8.4-10.2) 02/02/20 10:01 Ferritin 84.4 ng/mL (30.0-300.0) 11/24/19 04:53 Direct Bilirubin < 0.2 mg/dL (0-0.2) 12/08/19 03:55 Indirect Bilirubin 0.2 mg/dL 12/08/19 03:55 Phosphorus 4.10 mg/dL (2.5-4.5) 01/31/20 19:24 Magnesium 2.20 mg/dL (1.7-2.3) 01/31/20 19:24 Total Bilirubin 0.90 mg/dL (0.1-1.2) 02/02/20 10:01 Total Creatine Kinase 141 units/L (55-170) 11/24/19 02:53 CK-MB (CK-2) 4.3 ng/mL (0.0-4.0) H 11/24/19 02:53 AST 363 units/L (5-40) H 02/02/20 10:01 ALT 457 units/L (7-56) H 02/02/20 10:01 CK-MB (CK-2) Rel Index 3.0 (0-4) 11/24/19 02:53 Alkaline Phosphatase 105 units/L (35-129) 02/02/20 10:01 C-Reactive Protein 8.50 mg/dL (0.00-1.30) H 12/01/19 12:16 Lactate Dehydrogenase 228 units/L (91-180) H 12/19/19 04:45 Troponin T < 0.010 ng/mL (0.00-0.029) 01/19/20 01:35 NT-Pro-B Natriuret Pep 3866 pg/mL (0-900) H 01/01/20 10:40 Total Protein 6.8 g/dL (6.3-8.2) 02/02/20 10:01 Albumin 3.0 g/dL (3.9-5) L 02/02/20 10:01 Albumin/Globulin Ratio 0.8 % 02/02/20 10:01 Procalcitonin 0.76 ng/mL (<0.15) 01/01/20 10:40 Arterial Blood Glucose 99 mg/dL (65-95) H 01/12/20 13:58 Arterial Blood Ionized Calcium 4.8 mg/dL (4.6-5.3) 01/12/20 13:58 Urine Color Cecy (Yellow) 12/31/19 18:04 Urine Turbidity Clear (Clear) 12/31/19 18:04 Urine pH 5.0 (5.0-7.0) 12/31/19 18:04 Ur Specific [place] 1.023 (1.003-1.030) 12/31/19 18:04 Urine Protein <15 mg/dl mg/dL (Negative) 12/31/19 18:04 Urine Glucose (UA) Neg mg/dL (Negative) 12/31/19 18:04 Urine Ketones Neg mg/dL (Negative) 12/31/19 18:04 Urine Blood Neg (Negative) 12/31/19 18:04 Urine Bacteria (Auto) 1+ /HPF (Negative) 12/03/19 06:03 Urine Nitrite Neg (Negative) 12/31/19 18:04 Urine Bilirubin Neg (Negative) 12/31/19 18:04 Urine Urobilinogen 4.0 mg/dL (<2.0) 12/31/19 18:04 Ur Leukocyte Esterase Neg (Negative) 12/31/19 18:04 Urine WBC (Auto) 2.0 /HPF (0.0-6.0) 12/31/19 18:04 Urine RBC (Auto) 3.0 /HPF (0.0-6.0) 12/31/19 18:04 U Epithel Cells (Auto) 2.0 /HPF (0-13.0) 12/31/19 18:04 Urine Mucus 1+ /HPF 12/31/19 18:04 Urine Creatinine 57.4 mg/dL (0.1-20.0) H 01/31/20 Unknown Urine Sodium 59 mmol/L 01/31/20 Unknown Vancomycin Trough 14.2 ug/mL (5.0-20.0) 12/13/19 15:01 Coronavirus (PCR) Negative (Negative) 12/29/19 10:07 Blood Type O POSITIVE 01/21/20 13:00 Antibody Screen Negative 01/21/20 13:00 - Diagnostic Impressions Diagnostic Impressions: Echocardiogram 11/29/19 07:37 Transthoracic Echocardiogram Indication: CHF BP: 116/72 HR: 33 Conclusions *The study is technically limited due to poor acoustic windows. *Global left ventricular systolic function is normal. *The estimated ejection fraction is 50-55%. *Mild concentric left ventricular hypertrophy is observed. *There is trace of mitral regurgitation. *There is mild tricuspid regurgitation. Findings Procedure Info: The study quality is poor. The study is technically limited due to poor acoustic windows. The study is technically limited due to patient body habitus. Left Ventricle: The left ventricular chamber size is normal. Mild concentric left ventricular hypertrophy is observed. Global left ventricular systolic function is normal. The estimated ejection fraction is 50-55%. Left Atrium: The left atrial chamber size is normal. Right Ventricle: The right ventricular cavity size is normal. Right Atrium: The right atrial cavity size is normal. Aortic Valve: The aortic valve leaflets are moderately thickened. There is trace of aortic regurgitation. There is no evidence of aortic stenosis. Mitral Valve: The mitral valve leaflets are mildly thickened. There is trace of mitral regurgitation. There is no evidence of mitral stenosis. Tricuspid Valve: There is mild tricuspid regurgitation. No pulmonary hypertension is noted. Pulmonic Valve: There is trace pulmonic regurgitation. Pericardium: There is no pericardial effusion. Aorta: There is no dilatation of the aortic root. Venous: The inferior vena cava appears normal in size. Contrast: Definity was used to optimize study. Intravenous contrast was used to enhance endocardial border definition. Measurements Chambers 2D Name Value Normal Range Ao root diameter (2D) 3.4 cm (2 - 3.7) Aortic Valve Name Value Normal Range AV Vmax 0.98 m/sec - AV VTI 16.76 cm - AV peak gradient 3.83 mmHg - AV mean gradient 2.57 mmHg - LVOT diameter 3.11 cm - LVOT Vmax 0.68 m/sec - LVOT VTI 11.52 cm - LVOT peak gradient 1.84 mmHg - LVOT mean gradient 1.27 mmHg - SV LVOT 87.31 ml - MALOU (continuity Vmax) 5.24 cm2 - MALOU (continuity VTI) 5.21 cm2 - Tricuspid Valve Name Value Normal Range IVC diameter 2.24 cm (1.2 - 2.3) Hoffman/IV: Voiding Method Condom Catheter IV Catheter Type [Right INT / Saline Lock Forearm] IV Catheter Type [Right Hand] Peripheral IV IV Catheter Type [Right Upper INT / Saline Lock arm] IV Catheter Type [Left Upper Mid-line arm] IV Catheter Type [Left Forearm INT / Saline Lock ] IV Catheter Type [Left Hand] Peripheral IV IV Catheter Type [Left Wrist] INT / Saline Lock IV Catheter Type [Right Peripheral IV Antecubital] Active Medications - Current Medications Current Medications: Generic Name Dose Route Start Last Admin Trade Name Freq PRN Reason Stop Dose Admin Acetaminophen 650 mg 12/31/19 11:43 02/03/20 07:44 Tylenol FEEDTUBE 650 mg Q6H PRN Administration Pain, Mild (1-3) Amiodarone HCl 200 mg 01/29/20 22:00 02/02/20 21:48 Cordarone PO 200 mg BID CAR Administration Lipase/Protease/Amylase 1 each 01/09/20 12:01 Pancreaztao Betancourt 10,500 Unit FEEDTUBE PRN PRN For Clogged Feeding Tube Apixaban 5 mg 01/22/20 22:00 02/02/20 21:47 Eliquis PO 5 mg Q12HR CAR Administration Protocol Atorvastatin Calcium 40 mg 01/20/20 22:00 02/02/20 21:47 Lipitor PO 40 mg QHS CAR Administration Bisacodyl 10 mg 01/06/20 13:00 02/02/20 09:02 Dulcolax MS 10 mg DAILY CAR Administration Clopidogrel Bisulfate 75 mg 01/21/20 06:00 02/02/20 09:01 Plavix PO 75 mg QDAY CAR Administration Dextrose 50 ml 01/31/20 18:51 D50w (25gm) Syringe IV Q30MIN PRN Hypoglycemia Protocol Famotidine 20 mg 01/12/20 10:00 02/02/20 21:47 Pepcid PO 20 mg BID CAR Administration Fentanyl 50 mcg 02/01/20 15:52 Sublimaze IV Q10MIN PRN ANALGESIA Furosemide 20 mg 02/01/20 06:00 02/03/20 06:26 Lasix PO 20 mg DAILY@0600 CAR Administration Glycopyrrolate 2 mg 01/26/20 20:00 02/02/20 22:05 Glycopyrrolate PO 2 mg TID [facility]1983 Administration Haloperidol Lactate 5 mg 12/25/19 10:00 01/22/20 11:35 Haldol IV 5 mg Q6H PRN Administration Unrespon. to mult. doses BZD's Hydrophilic Ointment 1 applic 01/17/20 15:26 Vaseline Lip Therapy TP DIRECT PRN Dry Lips Fentanyl Citrate 2,000 mcg in 100 mls @ 5.65 mls/hr 02/01/20 16:00 02/03/20 06:26 Fentanyl Drip Premix IV 2 mcg/kg/hr TITR CAR 11.3 mls/hr Administration Protocol 1 MCG/KG/HR Insulin Human Regular 0 unit 02/01/20 18:00 02/03/20 06:26 Humulin R SUB-Q Not Given Q6H [facility]1983 Protocol Lorazepam 2 mg 12/25/19 10:00 01/31/20 14:22 Ativan IV 2 mg Q6H PRN Administration AGITATION Magnesium Hydroxide 30 ml 01/14/20 13:35 01/22/20 11:32 Milk Of Magnesia PO 30 ml QDAY PRN Administration Constip unreliev by MOM/or NPO Metoclopramide HCl 5 mg 02/02/20 13:13 02/02/20 14:09 Reglan IV 5 mg Q6H PRN Administration Nausea And Vomiting Metoprolol Tartrate 5 mg 01/11/20 08:00 02/03/20 07:16 Metoprolol IV 5 mg Q6H PRN Administration SEE INSTRUCTIONS Metoprolol Tartrate 25 mg 01/11/20 13:00 02/03/20 06:28 Metoprolol PO 25 mg Q6H CAR Administration Midodrine 10 mg 01/30/20 08:00 02/03/20 07:17 Proamatine PO 10 mg TID@0800,1200,1600 CAR Administration Morphine Sulfate 2 mg 01/06/20 15:41 01/31/20 09:58 Morphine IV 2 mg Q4H PRN Administration Pain, Moderate (4-6) Multi-Ingred Cream/Lotion/Oil/Oint 1 applic 02/01/20 15:52 Artificial Tears Ophth Oint OU Q4HR PRN Dry Eye(s) Nitroglycerin 0.4 mg 01/19/20 21:09 01/20/20 03:03 Nitrostat SL 0.4 mg .Q5MIN PRN Administration Chest Pain Ondansetron HCl 4 mg 01/05/20 14:37 02/02/20 10:52 Zofran IV 4 mg Q8H PRN Administration Nausea And Vomiting Polyethylene Glycol 17 gm 12/04/19 22:00 02/02/20 21:47 Miralax 3350 PO 17 gm QHS CAR Administration Quetiapine Fumarate 300 mg 01/13/20 22:00 02/02/20 21:47 Seroquel PO 300 mg BID CAR Administration Scopolamine 1 each 01/07/20 20:00 01/07/20 21:08 Transderm-Scop TD 1 each Q72HR CAR Administration Simple Syrup 15 ml 01/09/20 12:01 Simple Syrup FEEDTUBE PRN PRN Hypoglycemia Simple Syrup 30 ml 01/09/20 12:01 Simple Syrup FEEDTUBE PRN PRN Hypoglycemia Sodium Bicarbonate 325 mg 01/09/20 12:01 Sodium Bicarbonate FEEDTUBE PRN PRN For Clogged Feeding Tube Sodium Chloride 10 ml 11/24/19 10:00 02/02/20 21:48 Sodium Chloride Flush Syringe 10 Ml IV 10 ml BID CAR Administration Tamsulosin HCl 0.8 mg 12/20/19 22:00 02/02/20 21:47 Flomax PO 0.8 mg QHS CAR Administration Nutrition/Malnutrition Assess - Dietary Evaluation Nutrition/Malnutrition Findings: Nutrition Notes Start: 11/24/19 12:22 Freq: Status: Active Protocol: Document 02/02/20 12:13 AL (Rec: 02/02/20 12:20 AL [id number]) Co-Sign 02/02/20 12:13 MK Nutrition Notes Initial or Follow up Reassessment Current Diagnosis Coronary Artery Disease,Heart Failure,Respiratory Failure, Stroke,Hyperlipidemia Other Pertinent Diagnosis Partial SBO, pneu, ventilated trach Current Diet Vital AF 75ml/hr Labs/Tests BUN 36 POC Glu 181 Pertinent Medications Lasix Humulin Height 6 ft 2 in Weight 113 kg [place] Body Weight (kg) 86.36 BMI 31.9 Weight Status Overweight Subjective/Other Information F/U for TF tolerance, EEN and 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 Patient observed vomiting this morning. TF has been placed on hold. 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 Yes Is Patient Ambulatory and/or Out of Bed No REE-([facility]-confined to bed) [phone] Kcal/Kg value to use for calculation 19 Approximate Energy Requirements Using 2147 kcal/Kg Calculation Used for Recommendations Kcal/kg Additional Notes Protein needs are up to 162g ( 2g/kg IBW) Fluid needs are 1.5L Nutrition Intervention Change Diet Order: Restart TF when medically feasible Nutrition Support: Vital AF 1.2 at 75ml/hr. Flush 100ml q4h Kcal 2,160 Protein (gm) 135 Fluid (mL) 1,460 Goal #1 Meet at least 75% of pt's energy and protein needs Goal #2 Weight maintenance Goal #3 TF restart Anticipated Discharge Needs: unable to determine Follow-Up By: 02/04/20 Additional Comments F/U for TF restart and weight
[2020-02-03 08:18] LABS: BUN/Creatinine Ratio 33; Blood Urea Nitrogen 39 mg/dL (9-20); Calcium 9.2 mg/dL (8.4-10.2); Hemolysis Index 13
[2020-02-03] MEDS: APIXABAN 5 MG TAB PO SCH ×2 (09:34→21:08)
[2020-02-03] MEDS: QUEtiapine 100 MG TAB PO SCH ×2 (09:34→21:08)
[2020-02-03] MEDS: AMIODARONE 200 MG TAB PO SCH ×2 (09:34→21:08)
[2020-02-03] MEDS: CLOPIDOGREL 75 MG TAB PO SCH (09:35)
[2020-02-03] MEDS: FAMOTIDINE 20 MG TAB PO SCH ×2 (09:35→21:08)
--- NOTE | 2020-02-03 10:11 | Progress Note ---
Assessment and Plan Chest pain, resolved LHC done 01/22/20 widely patent previous LAD stent. We found mild nonobstructive atherosclerosis of the mid right coronary artery. Otherwise the rest of the coronary system was without significant atherosclerosis. LVEF 40 to 45%. There was some hypokinesis of the basal inferior wall suggestive of previous or recent infarct. ECG done 01/19/20 shows sinus rhythm with low voltage QRS and subtle ST segment elevations in the inferolateral leads that suggested possible concern for an acute injury at that time. Atrial fibrillation, paroxysmal on amiodarone and metoprolol Ischemic Cardiomyopathy re-echo this presentation reports an LVEF 40-45%. Hx of CAD Multifocal pneumonia negative COVID-19 test x 3 Chronic Respiratory failure s/p trach History of COPD Acute PE/DVT -on Eliquis Anemia Partial SBO vs ileus Recommend: Continue guideline directed medical therapy for coronary artery disease and atri al fibrillation. Otherwise, conservative cardiac management. Subjective Date of service: 02/03/20 Principal diagnosis: Ac hypoxemic resp failure; Pneumonia; PUI COVID-19; CHF; COPD; HTN Interval history: Patient is planned for a head CT scan today for altered mental status. Objective Vital Signs Temp Pulse Pulse Resp BP Pulse Ox Pulse Ox 02/03/20 07:16 162 H 107/82 02/03/20 07:00 137 H 13 107/82 97 02/03/20 06:28 133 H 110/89 02/03/20 06:00 129 H 11 L 110/89 96 02/03/20 05:01 133 H 11 L 129/88 95 02/03/20 04:52 97 02/03/20 04:48 134 H 128/82 99 02/03/20 04:00 99.8 F H 138 H 12 118/91 99 02/03/20 03:00 126 H 12 109/82 97 02/03/20 02:00 122 H 11 L 125/86 98 02/03/20 01:00 127 H 13 121/77 98 02/03/20 00:20 120 H 129/76 98 02/03/20 00:03 122 H 12 129/76 89 02/03/20 00:01 116 H 14 129/76 89 02/03/20 00:00 96 02/02/20 23:58 115 H 02/02/20 23:56 99.9 F H 02/02/20 23:00 125 H 14 123/76 86 02/02/20 22:00 126 H 20 152/87 90 02/02/20 21:00 124 H 14 137/80 92 02/02/20 20:25 120 H 137/80 95 02/02/20 20:01 128 H 15 136/83 90 02/02/20 20:00 100.0 F H 99 02/02/20 19:01 112 H 14 126/78 89 02/02/20 18:26 116 H 140/83 02/02/20 18:01 126 H 14 143/85 90 02/02/20 17:01 114 H 15 128/82 93 02/02/20 16:50 102 H 131/84 96 96 02/02/20 16:00 99.8 F H 115 H 130 H 22 119/84 87 02/02/20 15:39 99.3 F 02/02/20 15:30 130 H 118/85 02/02/20 15:00 141 H 23 122/92 85 02/02/20 14:09 116 H 111/77 02/02/20 14:01 105 H 14 111/77 90 02/02/20 13:01 122 H 30 H 126/96 82 L 02/02/20 12:00 98.4 F 122 H 122 H 21 126/98 90 02/02/20 11:33 119 H 111/73 100 02/02/20 11:00 119 H 25 H 115/92 81 L - Physical Examination General: Other (s/p trach) HEENT: Positive: PERRL Cardiac: Positive: irregularly irregular Extremities: Absent: edema - Labs and Meds Cardiac Enzymes 02/02/20 Range/Units 10:01 AST 363 H (5-40) units/L CBC 02/03/20 Range/Units 07:04 WBC 13.0 H (4.5-11.0) K/mm3 RBC 3.80 (3.65-5.03) M/mm3 Hgb 9.5 L (11.8-15.2) gm/dl Hct 30.8 L (35.5-45.6) % Plt Count 275 (140-440) K/mm3 Lymph # (Auto) 2.3 (1.2-5.4) K/mm3 [place] # (Auto) 1.2 H (0.0-0.8) K/mm3 Eos # (Auto) 0.0 (0.0-0.4) K/mm3 Baso # (Auto) 0.1 (0.0-0.1) K/mm3 Comprehensive Metabolic Panel 02/02/20 02/03/20 Range/Units 10:01 07:04 Sodium 137 140 (137-145) mmol/L Potassium 3.6 4.1 (3.6-5.0) mmol/L Chloride 95.3 L 97.9 L (98-107) mmol/L Carbon Dioxide 30 33 H (22-30) mmol/L BUN 44 H 39 H (9-20) mg/dL Creatinine 1.1 1.2 (0.8-1.3) mg/dL Glucose 234 H 119 H (75-100) mg/dL Calcium 9.2 9.2 (8.4-10.2) mg/dL AST 363 H (5-40) units/L ALT 457 H (7-56) units/L Alkaline Phosphatase 105 (35-129) units/L Total Protein 6.8 (6.3-8.2) g/dL Albumin 3.0 L (3.9-5) g/dL - Allied health notes Allied health notes reviewed: nursing
--- NOTE | 2020-02-03 10:46 | Cat Scan Report ---
CT head/brain wo con INDICATION / CLINICAL INFORMATION: 64 years Male; encephalopathy. TECHNIQUE: Routine CT head was performed. All CT scans at this location are performed using the CT dose reductio n for ALAFasterPants by means of automated exposure control. COMPARISON: The study is compared to previous CT of 11/28/2019. FINDINGS: BRAIN / INTRACRANIAL CONTENTS: The motion and beam hardening again degrades the image quality. Howeve r, there is mild microvascular angiopathy with decrease attenuation involving the periventricular whi te matter as well as the right occipital subcortical regions. The findings correlate with the previou s CT. There is no clear evidence of acute intracranial hemorrhage or significant mass effect. There is mild cerebral atrophy. The ventricular system remains unchanged in size and configuration. CRANIOCERVICAL JUNCTION: No significant abnormality. ORBITS: No significant abnormality of visualized orbits. SINUSES / MASTOIDS: No significant abnormality in the visualized paranasal sinuses or mastoid air mayco ls. ADDITIONAL FINDINGS: None. IMPRESSION: 1. There is continued microvascular angiopathy as described without CT evidence of acute intracranial hemorrhage. Signer Name: Joe Arce MD Signed: 02/03/2020 10:41 AM Workstation Name: [id number]
[2020-02-03] MEDS: GLYCOPYRROLATE 2 MG TAB PO SCH ×3 (11:28→21:08)
--- NOTE | 2020-02-03 11:40 | Progress Note ---
Assessment and Plan Acute hypoxemic respiratory failure Bilateral pneumonia, community acquired. Acute LLL branch P.E. Acute DVT Person under investigation for COVID-19 infection. Acute congestive heart failure exacerbation. History of cerebrovascular accident. Acute chronic obstructive pulmonary disease exacerbation. Hypertension and hypertensive urgency at presentation. History of arthritis. Leukocytosis. Lactic acidosis. Oropharyngeal dysphagia (Suspecty IVVD at this point) - LFT's elevated with persistent N&V; will get G.I. consult - get Ammonia level re: AMS - ID consult re: AMS, hypotension, leucocytosis & PSAR t+ve tracheal aspirate (? Sepsis / resume AB's) - get procalcitonin, lactate re: ? Severe sepsis with encephalopathy - 12 lead EKG re: tachyarrythmia - stop Lasix while septic but hold on volume resuscitation as MAP's good - continue NGT to LIS - follow US chest +/- thoracentesis - continue care as below otherwise; - keep NPO for now - Reglan 5mg IV q6h - Midodrine for BP support - prn mucomyst nebs re: secretions - continue full anticoagulation with Apixaban - continue daily SAT's and SBT assessment as tolerated - continue seroquel for anxiolysis / delirium - COVID isolation per facility protocol - prn diuresis while following electrolytes / I's & O's - continue to wean oxygen for O2 sat's > 92% - continue bronchodilators with routine trach care and pulmonary hygiene per RT - continue Robinul & Scopolamine for secretion control - VAP bundle addressed (Aspiration precautions, HOB >40) - continue to wean per pulmonary driven protocols - sedation target is RASS 0 to -1 - continue prn analgesia per CPOT score - follow clinically re: fever curves / trend WBC - Avoid delirium (no benzodiazepines if they can be avoided) - Maintain sleep-wake cycle - enteral nutrition at goal rate as tolerated - continue accucheck's with glycemic control per SSI for target blood glucose goal of 140-180 mg/dL while critically ill; Avoid hypoglycemia - for VTE he is on IV Heparin - continue stress ulcer prophylaxis with Famotidine - continue mobility protocols for pressure ulcer prophylaxis - continue fall precautions - continue wound care management per RN / WCT - Supportive transfusions to keep HgB>7g/dL - CXR's and ABG's prn - Continue to monitor neurologic function - Continue chronic home medications - Continue all supportive care ........ re-evaluate in am & prn CONDITION: CRITICAL PROGNOSIS: GUARDED CODE STATUS: FULL CODE The high probability of a clinically significant, sudden or life threatening deterioration of the [Respiratory, cardiovascular & neurological] system(s) required my full and direct attention, intervention and personal management. The aggregate critical care time was [32] minutes without overlap. Time includes spent on [x] Data Review and interpretation [x] Patient assessment and monitoring of vital signs [x] Documentation [x] Medication orders and management Subjective Date of service: 02/03/20 Principal diagnosis: Ac hypoxemic resp failure; Pneumonia; PUI COVID-19; CHF; COPD; HTN Interval history: Patient is seen today for: Acute hypoxemic respiratory failure; Adan. Pneumonia (CAP); PUI COVID-19 infection; AE-CHF; AE-COPD; H/O CVA; HTN Seen and examined at bedside; 24 hour events reviewed; nursing and respiratory care staff consulted; no adverse overnight events reported to me; resting peacefully in bed; AMS is worse and very lethargic today; no high grade fevers but with tachycardia to 150's; NGT remains to LIS Objective Vital Signs - 12hr 02/02/20 02/02/20 02/03/20 23:56 23:58 00:00 Temperature 99.9 F H Pulse Rate 115 H Pulse Rate [ From Monitor] Respiratory Rate Blood Pressure O2 Sat by Pulse 96 Oximetry O2 Sat by Pulse Oximetry [ Assessment] 02/03/20 02/03/20 02/03/20 00:01 00:03 00:20 Temperature Pulse Rate 116 H 122 H 120 H Pulse Rate [ From Monitor] Respiratory 14 12 Rate Blood Pressure 129/76 129/76 129/76 O2 Sat by Pulse 89 89 98 Oximetry O2 Sat by Pulse Oximetry [ Assessment] 02/03/20 02/03/20 02/03/20 01:00 02:00 03:00 Temperature Pulse Rate 127 H 122 H 126 H Pulse Rate [ From Monitor] Respiratory 13 11 L 12 Rate Blood Pressure 121/77 125/86 109/82 O2 Sat by Pulse 98 98 97 Oximetry O2 Sat by Pulse Oximetry [ Assessment] 02/03/20 02/03/20 02/03/20 04:00 04:48 04:52 Temperature 99.8 F H Pulse Rate 138 H 134 H Pulse Rate [ From Monitor] Respiratory 12 Rate Blood Pressure 118/91 128/82 O2 Sat by Pulse 99 99 Oximetry O2 Sat by Pulse 97 Oximetry [ Assessment] 02/03/20 02/03/20 02/03/20 05:01 06:00 06:28 Temperature Pulse Rate 133 H 129 H 133 H Pulse Rate [ From Monitor] Respiratory 11 L 11 L Rate Blood Pressure 129/88 110/89 110/89 O2 Sat by Pulse 95 96 Oximetry O2 Sat by Pulse Oximetry [ Assessment] 02/03/20 02/03/20 02/03/20 07:00 07:16 08:00 Temperature 100.5 F H Pulse Rate 137 H 162 H 129 H Pulse Rate [ 129 H From Monitor] Respiratory 13 13 Rate Blood Pressure 107/82 107/82 112/73 O2 Sat by Pulse 97 96 Oximetry O2 Sat by Pulse Oximetry [ Assessment] 02/03/20 02/03/20 02/03/20 09:01 10:17 11:01 Temperature Pulse Rate 146 H 133 H 155 H Pulse Rate [ From Monitor] Respiratory 17 13 11 L Rate Blood Pressure 112/73 116/85 137/92 O2 Sat by Pulse 95 100 99 Oximetry O2 Sat by Pulse Oximetry [ Assessment] Constitutional: appears uncomfortable, other (elelelderly and obese male, normocephalic with mildly increased respiratory effort at rest) Eyes: non-icteric ENT: oropharynx moist, other (+ midline tracheostomy) Neck: supple, no JVD Effort: mildly labored Ascultation: Bilateral: diminished breath sounds, rhonchi Percussion: Bilateral: not dull Cardiovascular: irregular rhythm, other (flow murmur) Gastrointestinal: normoactive bowel sounds, soft, non-tender, non-distended (protuberant), other (protuberant; PEG in place) Integumentary: normal Extremities: no cyanosis, pulses normal, no ischemia or petechiae, edema (bilateral upper ) Neurologic: non-focal exam (moves extremities), pupils equal and round, CN II- XII normal, unable to assess (lethargic) Psychiatric: other (unable to assess re: AMS) CBC and BMP: 02/03/20 07:04 02/03/20 07:04 ABG, PT/INR, D-dimer: ABG ABG pH 7.447 pH Units (7.350-7.450) 01/25/20 21:02 POC ABG pCO2 45.6 mmHg (32.0-48.0) 01/12/20 13:58 ABG pCO2 47.0 mm Hg 01/25/20 21:02 POC ABG pO2 76.6 mmHg (83-108) L 01/12/20 13:58 ABG pO2 57.5 mm Hg (80.0-90.0) L 01/25/20 21:02 POC ABG HCO3 31.2 01/12/20 13:58 ABG O2 Saturation 90.3 % (95.0-99.0) L 01/25/20 21:02 PT/INR, D-dimer PT 16.9 Sec. (12.2-14.9) H 01/22/20 09:58 INR 1.34 (0.87-1.13) H 01/22/20 09:58 Abnormal lab findings: Abnormal Labs 11/24/19 11/24/19 11/24/19 02:53 02:53 03:45 WBC 14.3 H RBC Hgb Hct MCHC RDW 17.2 H MCV MCH Lymph % (Auto) Ida % (Auto) Ida # Eos # Lymph # (Auto) Ida # (Auto) Eos # (Auto) Seg Neutrophils % Seg Neuts % (Manual) Baso # (Auto) Lymphocytes % (Manual) Monocytes % (Manual) Eosinophils % (Manual) Basophils % (Manual) Seg Neutrophils # Seg Neutrophils # Man 8.3 H Lymphocytes # (Manual) Monocytes # (Manual) 0.9 H Eosinophils # (Manual) Nucleated RBC % Basophils # (Manual) PT INR APTT Heparin Anti-Xa Level ABG pH 7.313 L POC ABG pO2 ABG pO2 102.8 H ABG HCO3 ABG O2 Saturation ABG Base Excess -2.9 L POC ABG pCO2 ABG Hemoglobin ABG Oxyhemoglobin ABG Glucose Oxyhemoglobin 93.9 L Sodium Potassium Chloride Carbon Dioxide BUN Creatinine Glucose 195 H POC Glucose Lactic Acid Calcium Phosphorus Magnesium AST ALT Lactate Dehydrogenase CK-MB (CK-2) 4.3 H C-Reactive Protein NT-Pro-B Natriuret Pep 1181 H Total Protein Albumin Arterial Blood Glucose Urine WBC (Auto) Urine Creatinine 11/24/19 11/24/19 11/24/19 04:53 04:53 10:37 WBC RBC Hgb Hct MCHC RDW MCV MCH Lymph % (Auto) Ida % (Auto) Ida # Eos # Lymph # (Auto) Ida # (Auto) Eos # (Auto) Seg Neutrophils % Seg Neuts % (Manual) Baso # (Auto) Lymphocytes % (Manual) Monocytes % (Manual) Eosinophils % (Manual) Basophils % (Manual) Seg Neutrophils # Seg Neutrophils # Man Lymphocytes # (Manual) Monocytes # (Manual) Eosinophils # (Manual) Nucleated RBC % Basophils # (Manual) PT INR APTT Heparin Anti-Xa Level ABG pH POC ABG pO2 ABG pO2 ABG HCO3 ABG O2 Saturation ABG Base Excess POC ABG pCO2 ABG Hemoglobin ABG Oxyhemoglobin ABG Glucose Oxyhemoglobin Sodium Potassium Chloride Carbon Dioxide BUN Creatinine Glucose 162 H POC Glucose Lactic Acid 2.40 H* 2.50 H* Calcium Phosphorus Magnesium AST ALT Lactate Dehydrogenase 240 H CK-MB (CK-2) C-Reactive Protein NT-Pro-B Natriuret Pep Total Protein Albumin Arterial Blood Glucose Urine WBC (Auto) Urine Creatinine 11/24/19 11/24/19 11/24/19 12:21 14:50 19:54 WBC RBC Hgb Hct MCHC RDW MCV MCH Lymph % (Auto) Ida % (Auto) Ida # Eos # Lymph # (Auto) Ida # (Auto) Eos # (Auto) Seg Neutrophils % Seg Neuts % (Manual) Baso # (Auto) Lymphocytes % (Manual) Monocytes % (Manual) Eosinophils % (Manual) Basophils % (Manual) Seg Neutrophils # Seg Neutrophils # Man Lymphocytes # (Manual) Monocytes # (Manual) Eosinophils # (Manual) Nucleated RBC % Basophils # (Manual) PT INR APTT Heparin Anti-Xa Level ABG pH POC ABG pO2 ABG pO2 ABG HCO3 ABG O2 Saturation ABG Base Excess POC ABG pCO2 ABG Hemoglobin ABG Oxyhemoglobin ABG Glucose Oxyhemoglobin Sodium Potassium Chloride Carbon Dioxide BUN Creatinine Glucose POC Glucose 145 H 143 H 124 H Lactic Acid Calcium Phosphorus Magnesium AST ALT Lactate Dehydrogenase CK-MB (CK-2) C-Reactive Protein NT-Pro-B Natriuret Pep Total Protein Albumin Arterial Blood Glucose Urine WBC (Auto) Urine Creatinine 11/25/19 11/25/19 11/25/19 00:18 03:18 05:11 WBC 13.7 H RBC Hgb Hct MCHC RDW 17.1 H MCV MCH Lymph % (Auto) 10.8 L Ida % (Auto) 8.7 H Ida # 1.2 H Eos # Lymph # (Auto) Ida # (Auto) Eos # (Auto) Seg Neutrophils % 80.2 H Seg Neuts % (Manual) Baso # (Auto) Lymphocytes % (Manual) Monocytes % (Manual) Eosinophils % (Manual) Basophils % (Manual) Seg Neutrophils # 11.0 H Seg Neutrophils # Man Lymphocytes # (Manual) Monocytes # (Manual) Eosinophils # (Manual) Nucleated RBC % Basophils # (Manual) PT INR APTT Heparin Anti-Xa Level ABG pH 7.333 L POC ABG pO2 ABG pO2 61.2 L ABG HCO3 ABG O2 Saturation 90.2 L ABG Base Excess POC ABG pCO2 ABG Hemoglobin 13.7 L ABG Oxyhemoglobin ABG Glucose Oxyhemoglobin 88.2 L Sodium Potassium Chloride Carbon Dioxide BUN Creatinine Glucose POC Glucose 109 H Lactic Acid Calcium Phosphorus Magnesium AST ALT Lactate Dehydrogenase CK-MB (CK-2) C-Reactive Protein NT-Pro-B Natriuret Pep Total Protein Albumin Arterial Blood Glucose Urine WBC (Auto) Urine Creatinine 11/25/19 11/25/19 11/26/19 05:11 11:40 03:12 WBC RBC Hgb Hct MCHC RDW MCV MCH Lymph % (Auto) Ida % (Auto) Ida # Eos # Lymph # (Auto) Ida # (Auto) Eos # (Auto) Seg Neutrophils % Seg Neuts % (Manual) Baso # (Auto) Lymphocytes % (Manual) Monocytes % (Manual) Eosinophils % (Manual) Basophils % (Manual) Seg Neutrophils # Seg Neutrophils # Man Lymphocytes # (Manual) Monocytes # (Manual) Eosinophils # (Manual) Nucleated RBC % Basophils # (Manual) PT INR APTT Heparin Anti-Xa Level ABG pH POC ABG pO2 ABG pO2 155.1 H ABG HCO3 27.8 H ABG O2 Saturation ABG Base Excess POC ABG pCO2 ABG Hemoglobin 12.2 L ABG Oxyhemoglobin ABG Glucose Oxyhemoglobin Sodium Potassium Chloride Carbon Dioxide BUN 23 H Creatinine Glucose 110 H POC Glucose 108 H Lactic Acid Calcium Phosphorus Magnesium AST ALT Lactate Dehydrogenase CK-MB (CK-2) C-Reactive Protein NT-Pro-B Natriuret Pep Total Protein Albumin Arterial Blood Glucose Urine WBC (Auto) Urine Creatinine 0911/26/19 11/26/19 06:17 10:43 10:43 WBC 11.4 H RBC Hgb Hct MCHC RDW 17.1 H MCV MCH Lymph % (Auto) Ida % (Auto) Ida # Eos # Lymph # (Auto) Ida # (Auto) Eos # (Auto) Seg Neutrophils % Seg Neuts % (Manual) Baso # (Auto) Lymphocytes % (Manual) Monocytes % (Manual) Eosinophils % (Manual) Basophils % (Manual) Seg Neutrophils # Seg Neutrophils # Man Lymphocytes # (Manual) Monocytes # (Manual) Eosinophils # (Manual) Nucleated RBC % Basophils # (Manual) PT INR APTT Heparin Anti-Xa Level ABG pH POC ABG pO2 ABG pO2 ABG HCO3 ABG O2 Saturation ABG Base Excess POC ABG pCO2 ABG Hemoglobin ABG Oxyhemoglobin ABG Glucose Oxyhemoglobin Sodium Potassium Chloride Carbon Dioxide BUN 29 H Creatinine Glucose POC Glucose 107 H Lactic Acid Calcium Phosphorus Magnesium AST ALT Lactate Dehydrogenase CK-MB (CK-2) C-Reactive Protein NT-Pro-B Natriuret Pep Total Protein Albumin Arterial Blood Glucose Urine WBC (Auto) Urine Creatinine 11/26/19 11/27/19 11/27/19 17:11 01:53 04:11 WBC RBC Hgb Hct MCHC RDW MCV MCH Lymph % (Auto) Ida % (Auto) Ida # Eos # Lymph # (Auto) Ida # (Auto) Eos # (Auto) Seg Neutrophils % Seg Neuts % (Manual) Baso # (Auto) Lymphocytes % (Manual) Monocytes % (Manual) Eosinophils % (Manual) Basophils % (Manual) Seg Neutrophils # Seg Neutrophils # Man Lymphocytes # (Manual) Monocytes # (Manual) Eosinophils # (Manual) Nucleated RBC % Basophils # (Manual) PT INR APTT Heparin Anti-Xa Level ABG pH POC ABG pO2 ABG pO2 ABG HCO3 29.2 H ABG O2 Saturation ABG Base Excess 3.4 H POC ABG pCO2 ABG Hemoglobin 13.3 L ABG Oxyhemoglobin ABG Glucose Oxyhemoglobin 94.5 L Sodium Potassium Chloride Carbon Dioxide BUN Creatinine Glucose POC Glucose 113 H 108 H Lactic Acid Calcium Phosphorus Magnesium AST ALT Lactate Dehydrogenase CK-MB (CK-2) C-Reactive Protein NT-Pro-B Natriuret Pep Total Protein Albumin Arterial Blood Glucose Urine WBC (Auto) Urine Creatinine 11/27/19 11/28/19 11/28/19 05:27 05:00 05:25 WBC RBC Hgb Hct MCHC RDW MCV MCH Lymph % (Auto) Ida % (Auto) Ida # Eos # Lymph # (Auto) Ida # (Auto) Eos # (Auto) Seg Neutrophils % Seg Neuts % (Manual) Baso # (Auto) Lymphocytes % (Manual) Monocytes % (Manual) Eosinophils % (Manual) Basophils % (Manual) Seg Neutrophils # Seg Neutrophils # Man Lymphocytes # (Manual) Monocytes # (Manual) Eosinophils # (Manual) Nucleated RBC % Basophils # (Manual) PT INR APTT Heparin Anti-Xa Level ABG pH POC ABG pO2 68.1 L ABG pO2 ABG HCO3 ABG O2 Saturation ABG Base Excess POC ABG pCO2 ABG Hemoglobin ABG Oxyhemoglobin 91.2 L ABG Glucose Oxyhemoglobin Sodium Potassium Chloride Carbon Dioxide BUN Creatinine Glucose POC Glucose 111 H 110 H Lactic Acid Calcium Phosphorus Magnesium AST ALT Lactate Dehydrogenase CK-MB (CK-2) C-Reactive Protein NT-Pro-B Natriuret Pep Total Protein Albumin Arterial Blood Glucose Urine WBC (Auto) Urine Creatinine 11/28/19 11/28/19 11/28/19 12:08 13:47 13:47 WBC 11.3 H RBC Hgb Hct MCHC RDW 16.1 H MCV MCH Lymph % (Auto) Ida % (Auto) 9.9 H Ida # 1.1 H Eos # Lymph # (Auto) Ida # (Auto) Eos # (Auto) Seg Neutrophils % 71.4 H Seg Neuts % (Manual) Baso # (Auto) Lymphocytes % (Manual) Monocytes % (Manual) Eosinophils % (Manual) Basophils % (Manual) Seg Neutrophils # 8.1 H Seg Neutrophils # Man Lymphocytes # (Manual) Monocytes # (Manual) Eosinophils # (Manual) Nucleated RBC % Basophils # (Manual) PT INR APTT Heparin Anti-Xa Level ABG pH POC ABG pO2 ABG pO2 ABG HCO3 ABG O2 Saturation ABG Base Excess POC ABG pCO2 ABG Hemoglobin ABG Oxyhemoglobin ABG Glucose Oxyhemoglobin Sodium Potassium Chloride Carbon Dioxide BUN 23 H Creatinine Glucose 123 H POC Glucose 112 H Lactic Acid Calcium Phosphorus Magnesium AST ALT Lactate Dehydrogenase CK-MB (CK-2) C-Reactive Protein NT-Pro-B Natriuret Pep Total Protein Albumin 3.7 L Arterial Blood Glucose Urine WBC (Auto) Urine Creatinine 11/28/19 11/29/19 11/29/19 17:26 03:55 17:04 WBC RBC Hgb Hct MCHC RDW MCV MCH Lymph % (Auto) Ida % (Auto) Ida # Eos # Lymph # (Auto) Ida # (Auto) Eos # (Auto) Seg Neutrophils % Seg Neuts % (Manual) Baso # (Auto) Lymphocytes % (Manual) Monocytes % (Manual) Eosinophils % (Manual) Basophils % (Manual) Seg Neutrophils # Seg Neutrophils # Man Lymphocytes # (Manual) Monocytes # (Manual) Eosinophils # (Manual) Nucleated RBC % Basophils # (Manual) PT INR APTT Heparin Anti-Xa Level ABG pH POC ABG pO2 ABG pO2 65.7 L ABG HCO3 28.3 H ABG O2 Saturation 93.9 L ABG Base Excess 3.6 H POC ABG pCO2 ABG Hemoglobin 13.3 L ABG Oxyhemoglobin ABG Glucose Oxyhemoglobin 91.5 L Sodium Potassium Chloride Carbon Dioxide BUN Creatinine Glucose POC Glucose 123 H 119 H Lactic Acid Calcium Phosphorus Magnesium AST ALT Lactate Dehydrogenase CK-MB (CK-2) C-Reactive Protein NT-Pro-B Natriuret Pep Total Protein Albumin Arterial Blood Glucose Urine WBC (Auto) Urine Creatinine 11/30/19 11/30/19 11/30/19 04:17 04:17 04:56 WBC 13.4 H RBC Hgb Hct MCHC RDW 15.6 H MCV MCH Lymph % (Auto) Ida % (Auto) Ida # Eos # Lymph # (Auto) Ida # (Auto) Eos # (Auto) Seg Neutrophils % Seg Neuts % (Manual) Baso # (Auto) Lymphocytes % (Manual) Monocytes % (Manual) Eosinophils % (Manual) Basophils % (Manual) Seg Neutrophils # Seg Neutrophils # Man Lymphocytes # (Manual) Monocytes # (Manual) Eosinophils # (Manual) Nucleated RBC % Basophils # (Manual) PT INR APTT Heparin Anti-Xa Level ABG pH POC ABG pO2 ABG pO2 56.3 L ABG HCO3 29.3 H ABG O2 Saturation 91.5 L ABG Base Excess 4.7 H POC ABG pCO2 ABG Hemoglobin 12.1 L ABG Oxyhemoglobin ABG Glucose Oxyhemoglobin 89.2 L Sodium 147 H Potassium Chloride Carbon Dioxide BUN 30 H Creatinine Glucose 124 H POC Glucose Lactic Acid Calcium Phosphorus Magnesium AST ALT Lactate Dehydrogenase CK-MB (CK-2) C-Reactive Protein NT-Pro-B Natriuret Pep Total Protein Albumin 3.8 L Arterial Blood Glucose Urine WBC (Auto) Urine Creatinine 11/30/19 11/30/19 11/30/19 05:51 11:54 18:17 WBC RBC Hgb Hct MCHC RDW MCV MCH Lymph % (Auto) Ida % (Auto) Ida # Eos # Lymph # (Auto) Ida # (Auto) Eos # (Auto) Seg Neutrophils % Seg Neuts % (Manual) Baso # (Auto) Lymphocytes % (Manual) Monocytes % (Manual) Eosinophils % (Manual) Basophils % (Manual) Seg Neutrophils # Seg Neutrophils # Man Lymphocytes # (Manual) Monocytes # (Manual) Eosinophils # (Manual) Nucleated RBC % Basophils # (Manual) PT INR APTT Heparin Anti-Xa Level ABG pH POC ABG pO2 ABG pO2 ABG HCO3 ABG O2 Saturation ABG Base Excess POC ABG pCO2 ABG Hemoglobin ABG Oxyhemoglobin ABG Glucose Oxyhemoglobin Sodium Potassium Chloride Carbon Dioxide BUN Creatinine Glucose POC Glucose 127 H 115 H 143 H Lactic Acid Calcium Phosphorus Magnesium AST ALT Lactate Dehydrogenase CK-MB (CK-2) C-Reactive Protein NT-Pro-B Natriuret Pep Total Protein Albumin Arterial Blood Glucose Urine WBC (Auto) Urine Creatinine 12/01/19 12/01/19 12/01/19 01:18 05:22 12:16 WBC RBC Hgb Hct MCHC RDW MCV MCH Lymph % (Auto) Ida % (Auto) Ida # Eos # Lymph # (Auto) Ida # (Auto) Eos # (Auto) Seg Neutrophils % Seg Neuts % (Manual) Baso # (Auto) Lymphocytes % (Manual) Monocytes % (Manual) Eosinophils % (Manual) Basophils % (Manual) Seg Neutrophils # Seg Neutrophils # Man Lymphocytes # (Manual) Monocytes # (Manual) Eosinophils # (Manual) Nucleated RBC % Basophils # (Manual) PT INR APTT Heparin Anti-Xa Level ABG pH POC ABG pO2 ABG pO2 ABG HCO3 ABG O2 Saturation ABG Base Excess POC ABG pCO2 ABG Hemoglobin ABG Oxyhemoglobin ABG Glucose Oxyhemoglobin Sodium Potassium 3.5 L Chloride 107.8 H Carbon Dioxide BUN 37 H Creatinine Glucose 157 H POC Glucose 118 H 148 H Lactic Acid Calcium 8.2 L D Phosphorus Magnesium AST 48 H ALT 60 H Lactate Dehydrogenase 194 H CK-MB (CK-2) C-Reactive Protein 8.50 H NT-Pro-B Natriuret Pep Total Protein 5.5 L Albumin 2.8 L Arterial Blood Glucose Urine WBC (Auto) Urine Creatinine 12/01/19 12/02/19 12/02/19 18:04 00:05 05:16 WBC 11.4 H RBC Hgb Hct MCHC RDW 15.9 H MCV MCH Lymph % (Auto) Ida % (Auto) 9.9 H Ida # 1.1 H Eos # Lymph # (Auto) Ida # (Auto) Eos # (Auto) Seg Neutrophils % 70.3 H Seg Neuts % (Manual) Baso # (Auto) Lymphocytes % (Manual) Monocytes % (Manual) Eosinophils % (Manual) Basophils % (Manual) Seg Neutrophils # 8.0 H Seg Neutrophils # Man Lymphocytes # (Manual) Monocytes # (Manual) Eosinophils # (Manual) Nucleated RBC % Basophils # (Manual) PT INR APTT Heparin Anti-Xa Level ABG pH POC ABG pO2 ABG pO2 ABG HCO3 ABG O2 Saturation ABG Base Excess POC ABG pCO2 ABG Hemoglobin ABG Oxyhemoglobin ABG Glucose Oxyhemoglobin Sodium Potassium Chloride Carbon Dioxide BUN Creatinine Glucose POC Glucose 143 H 107 H Lactic Acid Calcium Phosphorus Magnesium AST ALT Lactate Dehydrogenase CK-MB (CK-2) C-Reactive Protein NT-Pro-B Natriuret Pep Total Protein Albumin Arterial Blood Glucose Urine WBC (Auto) Urine Creatinine 12/02/19 12/02/19 12/02/19 05:16 06:03 11:52 WBC RBC Hgb Hct MCHC RDW MCV MCH Lymph % (Auto) Ida % (Auto) Ida # Eos # Lymph # (Auto) Ida # (Auto) Eos # (Auto) Seg Neutrophils % Seg Neuts % (Manual) Baso # (Auto) Lymphocytes % (Manual) Monocytes % (Manual) Eosinophils % (Manual) Basophils % (Manual) Seg Neutrophils # Seg Neutrophils # Man Lymphocytes # (Manual) Monocytes # (Manual) Eosinophils # (Manual) Nucleated RBC % Basophils # (Manual) PT INR APTT Heparin Anti-Xa Level ABG pH POC ABG pO2 ABG pO2 ABG HCO3 ABG O2 Saturation ABG Base Excess POC ABG pCO2 ABG Hemoglobin ABG Oxyhemoglobin ABG Glucose Oxyhemoglobin Sodium 146 H Potassium Chloride Carbon Dioxide BUN 28 H Creatinine Glucose 123 H POC Glucose 110 H 152 H Lactic Acid Calcium Phosphorus Magnesium AST ALT Lactate Dehydrogenase CK-MB (CK-2) C-Reactive Protein NT-Pro-B Natriuret Pep Total Protein Albumin Arterial Blood Glucose Urine WBC (Auto) Urine Creatinine 12/02/19 12/02/19 12/02/19 12:58 17:58 23:36 WBC RBC Hgb Hct MCHC RDW MCV MCH Lymph % (Auto) Ida % (Auto) Ida # Eos # Lymph # (Auto) Ida # (Auto) Eos # (Auto) Seg Neutrophils % Seg Neuts % (Manual) Baso # (Auto) Lymphocytes % (Manual) Monocytes % (Manual) Eosinophils % (Manual) Basophils % (Manual) Seg Neutrophils # Seg Neutrophils # Man Lymphocytes # (Manual) Monocytes # (Manual) Eosinophils # (Manual) Nucleated RBC % Basophils # (Manual) PT INR APTT Heparin Anti-Xa Level ABG pH POC ABG pO2 78.1 L ABG pO2 ABG HCO3 ABG O2 Saturation ABG Base Excess POC ABG pCO2 ABG Hemoglobin ABG Oxyhemoglobin ABG Glucose Oxyhemoglobin Sodium Potassium Chloride Carbon Dioxide BUN Creatinine Glucose POC Glucose 120 H 123 H Lactic Acid Calcium Phosphorus Magnesium AST ALT Lactate Dehydrogenase CK-MB (CK-2) C-Reactive Protein NT-Pro-B Natriuret Pep Total Protein Albumin Arterial Blood Glucose Urine WBC (Auto) Urine Creatinine 12/03/19 12/03/19 12/03/19 06:03 06:14 11:46 WBC RBC Hgb Hct MCHC RDW MCV MCH Lymph % (Auto) Ida % (Auto) Ida # Eos # Lymph # (Auto) Ida # (Auto) Eos # (Auto) Seg Neutrophils % Seg Neuts % (Manual) Baso # (Auto) Lymphocytes % (Manual) Monocytes % (Manual) Eosinophils % (Manual) Basophils % (Manual) Seg Neutrophils # Seg Neutrophils # Man Lymphocytes # (Manual) Monocytes # (Manual) Eosinophils # (Manual) Nucleated RBC % Basophils # (Manual) PT INR APTT Heparin Anti-Xa Level ABG pH POC ABG pO2 ABG pO2 ABG HCO3 ABG O2 Saturation ABG Base Excess POC ABG pCO2 ABG Hemoglobin ABG Oxyhemoglobin ABG Glucose Oxyhemoglobin Sodium Potassium Chloride Carbon Dioxide BUN Creatinine Glucose POC Glucose 142 H 130 H Lactic Acid Calcium Phosphorus Magnesium AST ALT Lactate Dehydrogenase CK-MB (CK-2) C-Reactive Protein NT-Pro-B Natriuret Pep Total Protein Albumin Arterial Blood Glucose Urine WBC (Auto) 8.0 H Urine Creatinine 12/03/19 12/03/19 12/04/19 15:50 17:39 00:04 WBC RBC Hgb Hct MCHC RDW MCV MCH Lymph % (Auto) Ida % (Auto) Ida # Eos # Lymph # (Auto) Ida # (Auto) Eos # (Auto) Seg Neutrophils % Seg Neuts % (Manual) Baso # (Auto) Lymphocytes % (Manual) Monocytes % (Manual) Eosinophils % (Manual) Basophils % (Manual) Seg Neutrophils # Seg Neutrophils # Man Lymphocytes # (Manual) Monocytes # (Manual) Eosinophils # (Manual) Nucleated RBC % Basophils # (Manual) PT INR APTT Heparin Anti-Xa Level ABG pH POC ABG pO2 ABG pO2 ABG HCO3 ABG O2 Saturation ABG Base Excess POC ABG pCO2 ABG Hemoglobin ABG Oxyhemoglobin ABG Glucose Oxyhemoglobin Sodium Potassium Chloride Carbon Dioxide BUN Creatinine Glucose POC Glucose 146 H 133 H Lactic Acid Calcium Phosphorus 2.40 L Magnesium AST ALT Lactate Dehydrogenase CK-MB (CK-2) C-Reactive Protein NT-Pro-B Natriuret Pep Total Protein Albumin Arterial Blood Glucose Urine WBC (Auto) Urine Creatinine 12/04/19 12/04/19 12/04/19 03:58 03:58 05:22 WBC 12.5 H RBC Hgb 11.2 L Hct 35.2 L MCHC RDW 16.0 H MCV MCH Lymph % (Auto) Ida % (Auto) 9.6 H Ida # 1.2 H Eos # 0.5 H Lymph # (Auto) Ida # (Auto) Eos # (Auto) Seg Neutrophils % Seg Neuts % (Manual) Baso # (Auto) Lymphocytes % (Manual) Monocytes % (Manual) Eosinophils % (Manual) Basophils % (Manual) Seg Neutrophils # 8.6 H Seg Neutrophils # Man Lymphocytes # (Manual) Monocytes # (Manual) Eosinophils # (Manual) Nucleated RBC % Basophils # (Manual) PT INR APTT Heparin Anti-Xa Level ABG pH POC ABG pO2 ABG pO2 ABG HCO3 ABG O2 Saturation ABG Base Excess POC ABG pCO2 ABG Hemoglobin ABG Oxyhemoglobin ABG Glucose Oxyhemoglobin Sodium 146 H Potassium Chloride 108.6 H Carbon Dioxide BUN 30 H Creatinine 0.7 L Glucose 121 H POC Glucose 132 H Lactic Acid Calcium Phosphorus Magnesium AST ALT Lactate Dehydrogenase CK-MB (CK-2) C-Reactive Protein NT-Pro-B Natriuret Pep Total Protein Albumin Arterial Blood Glucose Urine WBC (Auto) Urine Creatinine 12/04/19 12/04/19 12/05/19 13:26 18:43 00:19 WBC RBC Hgb Hct MCHC RDW MCV MCH Lymph % (Auto) Ida % (Auto) Ida # Eos # Lymph # (Auto) Ida # (Auto) Eos # (Auto) Seg Neutrophils % Seg Neuts % (Manual) Baso # (Auto) Lymphocytes % (Manual) Monocytes % (Manual) Eosinophils % (Manual) Basophils % (Manual) Seg Neutrophils # Seg Neutrophils # Man Lymphocytes # (Manual) Monocytes # (Manual) Eosinophils # (Manual) Nucleated RBC % Basophils # (Manual) PT INR APTT Heparin Anti-Xa Level ABG pH POC ABG pO2 ABG pO2 ABG HCO3 ABG O2 Saturation ABG Base Excess POC ABG pCO2 ABG Hemoglobin ABG Oxyhemoglobin ABG Glucose Oxyhemoglobin Sodium Potassium Chloride Carbon Dioxide BUN Creatinine Glucose POC Glucose 185 H 156 H 150 H Lactic Acid Calcium Phosphorus Magnesium AST ALT Lactate Dehydrogenase CK-MB (CK-2) C-Reactive Protein NT-Pro-B Natriuret Pep Total Protein Albumin Arterial Blood Glucose Urine WBC (Auto) Urine Creatinine 12/05/19 12/05/19 12/05/19 03:37 03:37 05:14 WBC 16.3 H RBC Hgb 11.4 L Hct MCHC RDW 15.6 H MCV MCH Lymph % (Auto) 9.9 L Ida % (Auto) 9.7 H Ida # 1.6 H Eos # Lymph # (Auto) Ida # (Auto) Eos # (Auto) Seg Neutrophils % 78.0 H Seg Neuts % (Manual) Baso # (Auto) Lymphocytes % (Manual) Monocytes % (Manual) Eosinophils % (Manual) Basophils % (Manual) Seg Neutrophils # 12.7 H Seg Neutrophils # Man Lymphocytes # (Manual) Monocytes # (Manual) Eosinophils # (Manual) Nucleated RBC % Basophils # (Manual) PT INR APTT Heparin Anti-Xa Level ABG pH POC ABG pO2 ABG pO2 ABG HCO3 ABG O2 Saturation ABG Base Excess POC ABG pCO2 ABG Hemoglobin ABG Oxyhemoglobin ABG Glucose Oxyhemoglobin Sodium 146 H Potassium Chloride 107.2 H Carbon Dioxide BUN 27 H Creatinine 0.7 L Glucose 171 H POC Glucose 168 H Lactic Acid Calcium Phosphorus Magnesium AST ALT Lactate Dehydrogenase CK-MB (CK-2) C-Reactive Protein NT-Pro-B Natriuret Pep Total Protein Albumin Arterial Blood Glucose Urine WBC (Auto) Urine Creatinine 12/05/19 12/05/19 12/05/19 12:31 18:10 23:58 WBC RBC Hgb Hct MCHC RDW MCV MCH Lymph % (Auto) Ida % (Auto) Ida # Eos # Lymph # (Auto) Ida # (Auto) Eos # (Auto) Seg Neutrophils % Seg Neuts % (Manual) Baso # (Auto) Lymphocytes % (Manual) Monocytes % (Manual) Eosinophils % (Manual) Basophils % (Manual) Seg Neutrophils # Seg Neutrophils # Man Lymphocytes # (Manual) Monocytes # (Manual) Eosinophils # (Manual) Nucleated RBC % Basophils # (Manual) PT INR APTT Heparin Anti-Xa Level ABG pH POC ABG pO2 ABG pO2 ABG HCO3 ABG O2 Saturation ABG Base Excess POC ABG pCO2 ABG Hemoglobin ABG Oxyhemoglobin ABG Glucose Oxyhemoglobin Sodium Potassium Chloride Carbon Dioxide BUN Creatinine Glucose POC Glucose 159 H 198 H 115 H Lactic Acid Calcium Phosphorus Magnesium AST ALT Lactate Dehydrogenase CK-MB (CK-2) C-Reactive Protein NT-Pro-B Natriuret Pep Total Protein Albumin Arterial Blood Glucose Urine WBC (Auto) Urine Creatinine 12/06/19 12/06/19 12/06/19 05:24 05:24 05:25 WBC 14.9 H RBC Hgb 10.8 L Hct 34.0 L MCHC RDW 15.6 H MCV MCH Lymph % (Auto) 10.7 L Ida % (Auto) 8.3 H Ida # 1.2 H Eos # Lymph # (Auto) Ida # (Auto) Eos # (Auto) Seg Neutrophils % 78.7 H Seg Neuts % (Manual) Baso # (Auto) Lymphocytes % (Manual) Monocytes % (Manual) Eosinophils % (Manual) Basophils % (Manual) Seg Neutrophils # 11.7 H Seg Neutrophils # Man Lymphocytes # (Manual) Monocytes # (Manual) Eosinophils # (Manual) Nucleated RBC % Basophils # (Manual) PT INR APTT Heparin Anti-Xa Level ABG pH POC ABG pO2 ABG pO2 ABG HCO3 ABG O2 Saturation ABG Base Excess POC ABG pCO2 ABG Hemoglobin ABG Oxyhemoglobin ABG Glucose Oxyhemoglobin Sodium 148 H Potassium 5.1 H Chloride 107.6 H Carbon Dioxide BUN 27 H Creatinine 0.7 L Glucose 155 H POC Glucose 157 H Lactic Acid Calcium Phosphorus Magnesium AST ALT Lactate Dehydrogenase CK-MB (CK-2) C-Reactive Protein NT-Pro-B Natriuret Pep Total Protein Albumin Arterial Blood Glucose Urine WBC (Auto) Urine Creatinine 12/07/19 12/07/19 12/07/19 00:13 05:34 11:33 WBC RBC Hgb Hct MCHC RDW MCV MCH Lymph % (Auto) Ida % (Auto) Ida # Eos # Lymph # (Auto) Ida # (Auto) Eos # (Auto) Seg Neutrophils % Seg Neuts % (Manual) Baso # (Auto) Lymphocytes % (Manual) Monocytes % (Manual) Eosinophils % (Manual) Basophils % (Manual) Seg Neutrophils # Seg Neutrophils # Man Lymphocytes # (Manual) Monocytes # (Manual) Eosinophils # (Manual) Nucleated RBC % Basophils # (Manual) PT INR APTT Heparin Anti-Xa Level ABG pH POC ABG pO2 ABG pO2 ABG HCO3 ABG O2 Saturation ABG Base Excess POC ABG pCO2 ABG Hemoglobin ABG Oxyhemoglobin ABG Glucose Oxyhemoglobin Sodium Potassium Chloride Carbon Dioxide BUN Creatinine Glucose POC Glucose 142 H 111 H 169 H Lactic Acid Calcium Phosphorus Magnesium AST ALT Lactate Dehydrogenase CK-MB (CK-2) C-Reactive Protein NT-Pro-B Natriuret Pep Total Protein Albumin Arterial Blood Glucose Urine WBC (Auto) Urine Creatinine 12/07/19 12/07/19 12/07/19 12:41 13:25 18:19 WBC 12.4 H RBC 3.53 L Hgb 10.2 L Hct 32.1 L MCHC RDW 15.3 H MCV MCH Lymph % (Auto) 10.6 L Ida % (Auto) 7.8 H Ida # 1.0 H Eos # Lymph # (Auto) Ida # (Auto) Eos # (Auto) Seg Neutrophils % 77.6 H Seg Neuts % (Manual) Baso # (Auto) Lymphocytes % (Manual) Monocytes % (Manual) Eosinophils % (Manual) Basophils % (Manual) Seg Neutrophils # 9.6 H Seg Neutrophils # Man Lymphocytes # (Manual) Monocytes # (Manual) Eosinophils # (Manual) Nucleated RBC % Basophils # (Manual) PT INR APTT Heparin Anti-Xa Level ABG pH POC ABG pO2 ABG pO2 ABG HCO3 ABG O2 Saturation ABG Base Excess POC ABG pCO2 ABG Hemoglobin ABG Oxyhemoglobin ABG Glucose Oxyhemoglobin Sodium 149 H Potassium Chloride 108.4 H Carbon Dioxide BUN 26 H Creatinine 0.6 L Glucose 149 H POC Glucose 164 H Lactic Acid Calcium Phosphorus Magnesium 2.60 H AST 121 H ALT 145 H Lactate Dehydrogenase CK-MB (CK-2) C-Reactive Protein NT-Pro-B Natriuret Pep Total Protein Albumin 2.6 L Arterial Blood Glucose Urine WBC (Auto) Urine Creatinine 12/07/19 12/08/19 12/08/19 22:25 00:02 03:55 WBC 13.3 H RBC 3.40 L Hgb 9.7 L Hct 30.8 L MCHC 31 L RDW 15.5 H MCV MCH Lymph % (Auto) Ida % (Auto) 8.1 H Ida # 1.1 H Eos # Lymph # (Auto) Ida # (Auto) Eos # (Auto) Seg Neutrophils % 73.0 H Seg Neuts % (Manual) Baso # (Auto) Lymphocytes % (Manual) Monocytes % (Manual) Eosinophils % (Manual) Basophils % (Manual) Seg Neutrophils # 9.7 H Seg Neutrophils # Man Lymphocytes # (Manual) Monocytes # (Manual) Eosinophils # (Manual) Nucleated RBC % Basophils # (Manual) PT INR APTT Heparin Anti-Xa Level 0.12 L ABG pH POC ABG pO2 ABG pO2 ABG HCO3 ABG O2 Saturation ABG Base Excess POC ABG pCO2 ABG Hemoglobin ABG Oxyhemoglobin ABG Glucose Oxyhemoglobin Sodium Potassium Chloride Carbon Dioxide BUN Creatinine Glucose POC Glucose 151 H Lactic Acid Calcium Phosphorus Magnesium AST ALT Lactate Dehydrogenase CK-MB (CK-2) C-Reactive Protein NT-Pro-B Natriuret Pep Total Protein Albumin Arterial Blood Glucose Urine WBC (Auto) Urine Creatinine 12/08/19 12/08/19 12/08/19 03:55 05:21 06:01 WBC RBC Hgb Hct MCHC RDW MCV MCH Lymph % (Auto) Ida % (Auto) Ida # Eos # Lymph # (Auto) Ida # (Auto) Eos # (Auto) Seg Neutrophils % Seg Neuts % (Manual) Baso # (Auto) Lymphocytes % (Manual) Monocytes % (Manual) Eosinophils % (Manual) Basophils % (Manual) Seg Neutrophils # Seg Neutrophils # Man Lymphocytes # (Manual) Monocytes # (Manual) Eosinophils # (Manual) Nucleated RBC % Basophils # (Manual) PT INR APTT Heparin Anti-Xa Level 0.20 L ABG pH POC ABG pO2 ABG pO2 ABG HCO3 ABG O2 Saturation ABG Base Excess POC ABG pCO2 ABG Hemoglobin ABG Oxyhemoglobin ABG Glucose Oxyhemoglobin Sodium 149 H Potassium Chloride 108.0 H Carbon Dioxide BUN 28 H Creatinine 0.6 L Glucose 144 H POC Glucose 143 H Lactic Acid Calcium Phosphorus Magnesium AST 98 H ALT 145 H Lactate Dehydrogenase CK-MB (CK-2) C-Reactive Protein NT-Pro-B Natriuret Pep Total Protein 6.0 L Albumin 2.4 L Arterial Blood Glucose Urine WBC (Auto) Urine Creatinine 12/08/19 12/08/19 12/08/19 12:08 18:11 23:53 WBC RBC Hgb Hct MCHC RDW MCV MCH Lymph % (Auto) Ida % (Auto) Ida # Eos # Lymph # (Auto) Ida # (Auto) Eos # (Auto) Seg Neutrophils % Seg Neuts % (Manual) Baso # (Auto) Lymphocytes % (Manual) Monocytes % (Manual) Eosinophils % (Manual) Basophils % (Manual) Seg Neutrophils # Seg Neutrophils # Man Lymphocytes # (Manual) Monocytes # (Manual) Eosinophils # (Manual) Nucleated RBC % Basophils # (Manual) PT INR APTT Heparin Anti-Xa Level ABG pH POC ABG pO2 ABG pO2 ABG HCO3 ABG O2 Saturation ABG Base Excess POC ABG pCO2 ABG Hemoglobin ABG Oxyhemoglobin ABG Glucose Oxyhemoglobin Sodium Potassium Chloride Carbon Dioxide BUN Creatinine Glucose POC Glucose 172 H 122 H 162 H Lactic Acid Calcium Phosphorus Magnesium AST ALT Lactate Dehydrogenase CK-MB (CK-2) C-Reactive Protein NT-Pro-B Natriuret Pep Total Protein Albumin Arterial Blood Glucose Urine WBC (Auto) Urine Creatinine 12/09/19 12/09/19 12/09/19 04:03 04:03 05:53 WBC RBC Hgb 9.1 L Hct 28.9 L MCHC RDW MCV MCH Lymph % (Auto) Ida % (Auto) Ida # Eos # Lymph # (Auto) Ida # (Auto) Eos # (Auto) Seg Neutrophils % Seg Neuts % (Manual) Baso # (Auto) Lymphocytes % (Manual) Monocytes % (Manual) Eosinophils % (Manual) Basophils % (Manual) Seg Neutrophils # Seg Neutrophils # Man Lymphocytes # (Manual) Monocytes # (Manual) Eosinophils # (Manual) Nucleated RBC % Basophils # (Manual) PT INR APTT Heparin Anti-Xa Level 0.15 L ABG pH POC ABG pO2 ABG pO2 ABG HCO3 ABG O2 Saturation ABG Base Excess POC ABG pCO2 ABG Hemoglobin ABG Oxyhemoglobin ABG Glucose Oxyhemoglobin Sodium Potassium Chloride Carbon Dioxide BUN Creatinine Glucose POC Glucose 124 H Lactic Acid Calcium Phosphorus Magnesium AST ALT Lactate Dehydrogenase CK-MB (CK-2) C-Reactive Protein NT-Pro-B Natriuret Pep Total Protein Albumin Arterial Blood Glucose Urine WBC (Auto) Urine Creatinine 12/09/19 12/09/19 12/10/19 09:43 12:41 00:13 WBC RBC Hgb Hct MCHC RDW MCV MCH Lymph % (Auto) Ida % (Auto) Ida # Eos # Lymph # (Auto) Ida # (Auto) Eos # (Auto) Seg Neutrophils % Seg Neuts % (Manual) Baso # (Auto) Lymphocytes % (Manual) Monocytes % (Manual) Eosinophils % (Manual) Basophils % (Manual) Seg Neutrophils # Seg Neutrophils # Man Lymphocytes # (Manual) Monocytes # (Manual) Eosinophils # (Manual) Nucleated RBC % Basophils # (Manual) PT INR APTT Heparin Anti-Xa Level ABG pH POC ABG pO2 ABG pO2 ABG HCO3 ABG O2 Saturation ABG Base Excess POC ABG pCO2 ABG Hemoglobin ABG Oxyhemoglobin ABG Glucose Oxyhemoglobin Sodium Potassium Chloride Carbon Dioxide BUN 25 H Creatinine 0.6 L Glucose 131 H POC Glucose 109 H 120 H Lactic Acid Calcium Phosphorus Magnesium AST ALT Lactate Dehydrogenase CK-MB (CK-2) C-Reactive Protein NT-Pro-B Natriuret Pep Total Protein Albumin Arterial Blood Glucose Urine WBC (Auto) Urine Creatinine 12/10/19 12/10/19 12/10/19 04:14 04:14 12:00 WBC 13.3 H RBC 3.34 L Hgb 9.6 L Hct 30.4 L MCHC RDW 15.4 H MCV MCH Lymph % (Auto) Ida % (Auto) Ida # Eos # Lymph # (Auto) Ida # (Auto) Eos # (Auto) Seg Neutrophils % Seg Neuts % (Manual) 75.0 H Baso # (Auto) Lymphocytes % (Manual) 13.0 L Monocytes % (Manual) 8.0 H Eosinophils % (Manual) Basophils % (Manual) 2.0 H Seg Neutrophils # Seg Neutrophils # Man 10.0 H Lymphocytes # (Manual) Monocytes # (Manual) 1.1 H Eosinophils # (Manual) Nucleated RBC % Basophils # (Manual) 0.3 H PT INR APTT Heparin Anti-Xa Level ABG pH POC ABG pO2 ABG pO2 ABG HCO3 ABG O2 Saturation ABG Base Excess POC ABG pCO2 ABG Hemoglobin ABG Oxyhemoglobin ABG Glucose Oxyhemoglobin Sodium 147 H Potassium Chloride 108.3 H Carbon Dioxide BUN 21 H Creatinine 0.6 L Glucose 104 H POC Glucose 133 H Lactic Acid Calcium Phosphorus Magnesium AST ALT Lactate Dehydrogenase CK-MB (CK-2) C-Reactive Protein NT-Pro-B Natriuret Pep Total Protein Albumin Arterial Blood Glucose Urine WBC (Auto) Urine Creatinine 12/10/19 12/10/19 12/11/19 18:44 21:20 00:08 WBC 14.9 H RBC 3.36 L Hgb 9.6 L Hct 30.5 L MCHC RDW 15.4 H MCV MCH Lymph % (Auto) Ida % (Auto) Ida # Eos # Lymph # (Auto) Ida # (Auto) Eos # (Auto) Seg Neutrophils % Seg Neuts % (Manual) Baso # (Auto) Lymphocytes % (Manual) Monocytes % (Manual) Eosinophils % (Manual) Basophils % (Manual) Seg Neutrophils # Seg Neutrophils # Man Lymphocytes # (Manual) Monocytes # (Manual) Eosinophils # (Manual) Nucleated RBC % Basophils # (Manual) PT INR APTT Heparin Anti-Xa Level ABG pH POC ABG pO2 ABG pO2 ABG HCO3 ABG O2 Saturation ABG Base Excess POC ABG pCO2 ABG Hemoglobin ABG Oxyhemoglobin ABG Glucose Oxyhemoglobin Sodium Potassium Chloride Carbon Dioxide BUN Creatinine Glucose POC Glucose 119 H 134 H Lactic Acid Calcium Phosphorus Magnesium AST ALT Lactate Dehydrogenase CK-MB (CK-2) C-Reactive Protein NT-Pro-B Natriuret Pep Total Protein Albumin Arterial Blood Glucose Urine WBC (Auto) Urine Creatinine 12/11/19 12/11/19 12/11/19 03:54 07:28 08:36 WBC 11.9 H RBC 3.25 L Hgb 9.6 L Hct 29.2 L MCHC RDW 15.7 H MCV MCH Lymph % (Auto) Ida % (Auto) Ida # Eos # Lymph # (Auto) Ida # (Auto) Eos # (Auto) Seg Neutrophils % Seg Neuts % (Manual) Baso # (Auto) Lymphocytes % (Manual) Monocytes % (Manual) Eosinophils % (Manual) Basophils % (Manual) Seg Neutrophils # Seg Neutrophils # Man Lymphocytes # (Manual) Monocytes # (Manual) Eosinophils # (Manual) Nucleated RBC % Basophils # (Manual) PT INR APTT Heparin Anti-Xa Level 0.10 L 0.16 L ABG pH POC ABG pO2 ABG pO2 ABG HCO3 ABG O2 Saturation ABG Base Excess POC ABG pCO2 ABG Hemoglobin ABG Oxyhemoglobin ABG Glucose Oxyhemoglobin Sodium Potassium Chloride Carbon Dioxide BUN Creatinine Glucose POC Glucose Lactic Acid Calcium Phosphorus Magnesium AST ALT Lactate Dehydrogenase CK-MB (CK-2) C-Reactive Protein NT-Pro-B Natriuret Pep Total Protein Albumin Arterial Blood Glucose Urine WBC (Auto) Urine Creatinine 12/11/19 12/11/19 12/11/19 08:36 11:45 17:15 WBC RBC Hgb Hct MCHC RDW MCV MCH Lymph % (Auto) Ida % (Auto) Ida # Eos # Lymph # (Auto) Ida # (Auto) Eos # (Auto) Seg Neutrophils % Seg Neuts % (Manual) Baso # (Auto) Lymphocytes % (Manual) Monocytes % (Manual) Eosinophils % (Manual) Basophils % (Manual) Seg Neutrophils # Seg Neutrophils # Man Lymphocytes # (Manual) Monocytes # (Manual) Eosinophils # (Manual) Nucleated RBC % Basophils # (Manual) PT INR APTT Heparin Anti-Xa Level ABG pH POC ABG pO2 ABG pO2 ABG HCO3 ABG O2 Saturation ABG Base Excess POC ABG pCO2 ABG Hemoglobin ABG Oxyhemoglobin ABG Glucose Oxyhemoglobin Sodium Potassium Chloride Carbon Dioxide BUN Creatinine 0.5 L Glucose 128 H POC Glucose 136 H 109 H Lactic Acid Calcium Phosphorus Magnesium AST ALT Lactate Dehydrogenase CK-MB (CK-2) C-Reactive Protein NT-Pro-B Natriuret Pep Total Protein Albumin Arterial Blood Glucose Urine WBC (Auto) Urine Creatinine 12/12/19 12/12/19 12/12/19 00:03 05:53 05:53 WBC RBC Hgb 8.8 L Hct 27.6 L MCHC RDW MCV MCH Lymph % (Auto) Ida % (Auto) Ida # Eos # Lymph # (Auto) Ida # (Auto) Eos # (Auto) Seg Neutrophils % Seg Neuts % (Manual) Baso # (Auto) Lymphocytes % (Manual) Monocytes % (Manual) Eosinophils % (Manual) Basophils % (Manual) Seg Neutrophils # Seg Neutrophils # Man Lymphocytes # (Manual) Monocytes # (Manual) Eosinophils # (Manual) Nucleated RBC % Basophils # (Manual) PT INR APTT Heparin Anti-Xa Level 0.22 L ABG pH POC ABG pO2 ABG pO2 ABG HCO3 ABG O2 Saturation ABG Base Excess POC ABG pCO2 ABG Hemoglobin ABG Oxyhemoglobin ABG Glucose Oxyhemoglobin Sodium Potassium Chloride Carbon Dioxide BUN Creatinine Glucose POC Glucose 116 H Lactic Acid Calcium Phosphorus Magnesium AST ALT Lactate Dehydrogenase CK-MB (CK-2) C-Reactive Protein NT-Pro-B Natriuret Pep Total Protein Albumin Arterial Blood Glucose Urine WBC (Auto) Urine Creatinine 12/12/19 12/12/19 12/12/19 09:38 12:18 17:44 WBC RBC Hgb Hct MCHC RDW MCV MCH Lymph % (Auto) Ida % (Auto) Ida # Eos # Lymph # (Auto) Ida # (Auto) Eos # (Auto) Seg Neutrophils % Seg Neuts % (Manual) Baso # (Auto) Lymphocytes % (Manual) Monocytes % (Manual) Eosinophils % (Manual) Basophils % (Manual) Seg Neutrophils # Seg Neutrophils # Man Lymphocytes # (Manual) Monocytes # (Manual) Eosinophils # (Manual) Nucleated RBC % Basophils # (Manual) PT INR APTT Heparin Anti-Xa Level ABG pH POC ABG pO2 ABG pO2 ABG HCO3 ABG O2 Saturation ABG Base Excess POC ABG pCO2 ABG Hemoglobin ABG Oxyhemoglobin ABG Glucose Oxyhemoglobin Sodium Potassium Chloride Carbon Dioxide BUN Creatinine Glucose POC Glucose 115 H 146 H 146 H Lactic Acid Calcium Phosphorus Magnesium AST ALT Lactate Dehydrogenase CK-MB (CK-2) C-Reactive Protein NT-Pro-B Natriuret Pep Total Protein Albumin Arterial Blood Glucose Urine WBC (Auto) Urine Creatinine 12/12/19 12/13/19 12/13/19 23:33 05:32 05:32 WBC 13.1 H RBC 3.27 L Hgb 9.5 L Hct 29.3 L MCHC RDW 15.6 H MCV MCH Lymph % (Auto) Ida % (Auto) Ida # Eos # Lymph # (Auto) Ida # (Auto) Eos # (Auto) Seg Neutrophils % Seg Neuts % (Manual) 74.0 H Baso # (Auto) Lymphocytes % (Manual) 8.0 L Monocytes % (Manual) 9.0 H Eosinophils % (Manual) 5.0 H Basophils % (Manual) Seg Neutrophils # Seg Neutrophils # Man 9.7 H Lymphocytes # (Manual) 1.0 L Monocytes # (Manual) 1.2 H Eosinophils # (Manual) 0.7 H Nucleated RBC % Basophils # (Manual) PT INR APTT Heparin Anti-Xa Level 0.20 L ABG pH POC ABG pO2 ABG pO2 ABG HCO3 ABG O2 Saturation ABG Base Excess POC ABG pCO2 ABG Hemoglobin ABG Oxyhemoglobin ABG Glucose Oxyhemoglobin Sodium Potassium Chloride Carbon Dioxide BUN Creatinine Glucose POC Glucose 126 H Lactic Acid Calcium Phosphorus Magnesium AST ALT Lactate Dehydrogenase CK-MB (CK-2) C-Reactive Protein NT-Pro-B Natriuret Pep Total Protein Albumin Arterial Blood Glucose Urine WBC (Auto) Urine Creatinine 12/13/19 12/13/19 12/13/19 05:32 05:46 11:57 WBC RBC Hgb Hct MCHC RDW MCV MCH Lymph % (Auto) Ida % (Auto) Ida # Eos # Lymph # (Auto) Ida # (Auto) Eos # (Auto) Seg Neutrophils % Seg Neuts % (Manual) Baso # (Auto) Lymphocytes % (Manual) Monocytes % (Manual) Eosinophils % (Manual) Basophils % (Manual) Seg Neutrophils # Seg Neutrophils # Man Lymphocytes # (Manual) Monocytes # (Manual) Eosinophils # (Manual) Nucleated RBC % Basophils # (Manual) PT INR APTT Heparin Anti-Xa Level ABG pH POC ABG pO2 ABG pO2 ABG HCO3 ABG O2 Saturation ABG Base Excess POC ABG pCO2 ABG Hemoglobin ABG Oxyhemoglobin ABG Glucose Oxyhemoglobin Sodium Potassium Chloride Carbon Dioxide 31 H BUN Creatinine 0.6 L Glucose 114 H POC Glucose 118 H 133 H Lactic Acid Calcium Phosphorus Magnesium AST ALT Lactate Dehydrogenase CK-MB (CK-2) C-Reactive Protein NT-Pro-B Natriuret Pep Total Protein Albumin Arterial Blood Glucose Urine WBC (Auto) Urine Creatinine 12/13/19 12/13/19 12/14/19 17:44 23:46 05:32 WBC RBC Hgb Hct MCHC RDW MCV MCH Lymph % (Auto) Ida % (Auto) Ida # Eos # Lymph # (Auto) Ida # (Auto) Eos # (Auto) Seg Neutrophils % Seg Neuts % (Manual) Baso # (Auto) Lymphocytes % (Manual) Monocytes % (Manual) Eosinophils % (Manual) Basophils % (Manual) Seg Neutrophils # Seg Neutrophils # Man Lymphocytes # (Manual) Monocytes # (Manual) Eosinophils # (Manual) Nucleated RBC % Basophils # (Manual) PT INR APTT Heparin Anti-Xa Level ABG pH POC ABG pO2 ABG pO2 ABG HCO3 ABG O2 Saturation ABG Base Excess POC ABG pCO2 ABG Hemoglobin ABG Oxyhemoglobin ABG Glucose Oxyhemoglobin Sodium Potassium Chloride Carbon Dioxide BUN Creatinine Glucose POC Glucose 161 H 126 H 139 H Lactic Acid Calcium Phosphorus Magnesium AST ALT Lactate Dehydrogenase CK-MB (CK-2) C-Reactive Protein NT-Pro-B Natriuret Pep Total Protein Albumin Arterial Blood Glucose Urine WBC (Auto) Urine Creatinine 12/14/19 12/14/19 12/14/19 06:03 06:03 09:37 WBC RBC Hgb 9.6 L Hct 30.4 L MCHC RDW MCV MCH Lymph % (Auto) Ida % (Auto) Ida # Eos # Lymph # (Auto) Ida # (Auto) Eos # (Auto) Seg Neutrophils % Seg Neuts % (Manual) Baso # (Auto) Lymphocytes % (Manual) Monocytes % (Manual) Eosinophils % (Manual) Basophils % (Manual) Seg Neutrophils # Seg Neutrophils # Man Lymphocytes # (Manual) Monocytes # (Manual) Eosinophils # (Manual) Nucleated RBC % Basophils # (Manual) PT INR APTT Heparin Anti-Xa Level 0.24 L ABG pH POC ABG pO2 ABG pO2 ABG HCO3 ABG O2 Saturation ABG Base Excess POC ABG pCO2 ABG Hemoglobin ABG Oxyhemoglobin ABG Glucose Oxyhemoglobin Sodium Potassium Chloride Carbon Dioxide BUN Creatinine 0.6 L Glucose 162 H POC Glucose Lactic Acid Calcium Phosphorus Magnesium AST 71 H ALT 118 H Lactate Dehydrogenase CK-MB (CK-2) C-Reactive Protein NT-Pro-B Natriuret Pep Total Protein 6.2 L Albumin 2.3 L Arterial Blood Glucose Urine WBC (Auto) Urine Creatinine 12/14/19 12/14/19 12/15/19 12:06 18:18 00:19 WBC RBC Hgb Hct MCHC RDW MCV MCH Lymph % (Auto) Ida % (Auto) Ida # Eos # Lymph # (Auto) Ida # (Auto) Eos # (Auto) Seg Neutrophils % Seg Neuts % (Manual) Baso # (Auto) Lymphocytes % (Manual) Monocytes % (Manual) Eosinophils % (Manual) Basophils % (Manual) Seg Neutrophils # Seg Neutrophils # Man Lymphocytes # (Manual) Monocytes # (Manual) Eosinophils # (Manual) Nucleated RBC % Basophils # (Manual) PT INR APTT Heparin Anti-Xa Level ABG pH POC ABG pO2 ABG pO2 ABG HCO3 ABG O2 Saturation ABG Base Excess POC ABG pCO2 ABG Hemoglobin ABG Oxyhemoglobin ABG Glucose Oxyhemoglobin Sodium Potassium Chloride Carbon Dioxide BUN Creatinine Glucose POC Glucose 147 H 166 H 123 H Lactic Acid Calcium Phosphorus Magnesium AST ALT Lactate Dehydrogenase CK-MB (CK-2) C-Reactive Protein NT-Pro-B Natriuret Pep Total Protein Albumin Arterial Blood Glucose Urine WBC (Auto) Urine Creatinine 12/15/19 12/15/19 12/15/19 05:28 05:29 05:29 WBC 14.9 H RBC 3.19 L Hgb 9.1 L Hct 28.7 L MCHC RDW 16.0 H MCV MCH Lymph % (Auto) Ida % (Auto) Ida # Eos # Lymph # (Auto) Ida # (Auto) Eos # (Auto) Seg Neutrophils % Seg Neuts % (Manual) Baso # (Auto) Lymphocytes % (Manual) Monocytes % (Manual) Eosinophils % (Manual) Basophils % (Manual) Seg Neutrophils # Seg Neutrophils # Man Lymphocytes # (Manual) Monocytes # (Manual) Eosinophils # (Manual) Nucleated RBC % Basophils # (Manual) PT INR APTT Heparin Anti-Xa Level 0.19 L ABG pH POC ABG pO2 ABG pO2 ABG HCO3 ABG O2 Saturation ABG Base Excess POC ABG pCO2 ABG Hemoglobin ABG Oxyhemoglobin ABG Glucose Oxyhemoglobin Sodium Potassium Chloride Carbon Dioxide BUN Creatinine 0.6 L Glucose 110 H POC Glucose Lactic Acid Calcium Phosphorus Magnesium AST ALT Lactate Dehydrogenase CK-MB (CK-2) C-Reactive Protein NT-Pro-B Natriuret Pep Total Protein Albumin Arterial Blood Glucose Urine WBC (Auto) Urine Creatinine 12/15/19 12/15/19 12/15/19 05:53 11:50 17:26 WBC RBC Hgb Hct MCHC RDW MCV MCH Lymph % (Auto) Ida % (Auto) Ida # Eos # Lymph # (Auto) Ida # (Auto) Eos # (Auto) Seg Neutrophils % Seg Neuts % (Manual) Baso # (Auto) Lymphocytes % (Manual) Monocytes % (Manual) Eosinophils % (Manual) Basophils % (Manual) Seg Neutrophils # Seg Neutrophils # Man Lymphocytes # (Manual) Monocytes # (Manual) Eosinophils # (Manual) Nucleated RBC % Basophils # (Manual) PT INR APTT Heparin Anti-Xa Level ABG pH POC ABG pO2 ABG pO2 ABG HCO3 ABG O2 Saturation ABG Base Excess POC ABG pCO2 ABG Hemoglobin ABG Oxyhemoglobin ABG Glucose Oxyhemoglobin Sodium Potassium Chloride Carbon Dioxide BUN Creatinine Glucose POC Glucose 119 H 132 H 128 H Lactic Acid Calcium Phosphorus Magnesium AST ALT Lactate Dehydrogenase CK-MB (CK-2) C-Reactive Protein NT-Pro-B Natriuret Pep Total Protein Albumin Arterial Blood Glucose Urine WBC (Auto) Urine Creatinine 12/15/19 12/16/19 12/16/19 23:11 05:30 05:46 WBC RBC Hgb 8.8 L Hct 27.9 L MCHC RDW MCV MCH Lymph % (Auto) Ida % (Auto) Ida # Eos # Lymph # (Auto) Ida # (Auto) Eos # (Auto) Seg Neutrophils % Seg Neuts % (Manual) Baso # (Auto) Lymphocytes % (Manual) Monocytes % (Manual) Eosinophils % (Manual) Basophils % (Manual) Seg Neutrophils # Seg Neutrophils # Man Lymphocytes # (Manual) Monocytes # (Manual) Eosinophils # (Manual) Nucleated RBC % Basophils # (Manual) PT INR APTT Heparin Anti-Xa Level ABG pH POC ABG pO2 ABG pO2 ABG HCO3 ABG O2 Saturation ABG Base Excess POC ABG pCO2 ABG Hemoglobin ABG Oxyhemoglobin ABG Glucose Oxyhemoglobin Sodium Potassium Chloride Carbon Dioxide BUN Creatinine Glucose POC Glucose 150 H 134 H Lactic Acid Calcium Phosphorus Magnesium AST ALT Lactate Dehydrogenase CK-MB (CK-2) C-Reactive Protein NT-Pro-B Natriuret Pep Total Protein Albumin Arterial Blood Glucose Urine WBC (Auto) Urine Creatinine 12/16/19 12/16/19 12/16/19 05:46 05:46 11:44 WBC RBC Hgb Hct MCHC RDW MCV MCH Lymph % (Auto) Ida % (Auto) Ida # Eos # Lymph # (Auto) Ida # (Auto) Eos # (Auto) Seg Neutrophils % Seg Neuts % (Manual) Baso # (Auto) Lymphocytes % (Manual) Monocytes % (Manual) Eosinophils % (Manual) Basophils % (Manual) Seg Neutrophils # Seg Neutrophils # Man Lymphocytes # (Manual) Monocytes # (Manual) Eosinophils # (Manual) Nucleated RBC % Basophils # (Manual) PT INR APTT Heparin Anti-Xa Level 0.20 L ABG pH POC ABG pO2 ABG pO2 ABG HCO3 ABG O2 Saturation ABG Base Excess POC ABG pCO2 ABG Hemoglobin ABG Oxyhemoglobin ABG Glucose Oxyhemoglobin Sodium Potassium Chloride Carbon Dioxide 31 H BUN Creatinine 0.5 L Glucose 147 H POC Glucose 164 H Lactic Acid Calcium Phosphorus Magnesium AST ALT Lactate Dehydrogenase CK-MB (CK-2) C-Reactive Protein NT-Pro-B Natriuret Pep Total Protein Albumin Arterial Blood Glucose Urine WBC (Auto) Urine Creatinine 12/16/19 12/16/19 12/17/19 17:17 23:49 05:30 WBC 13.9 H RBC 3.27 L Hgb 9.4 L Hct 29.2 L MCHC RDW 16.0 H MCV MCH Lymph % (Auto) Ida % (Auto) 8.8 H Ida # Eos # Lymph # (Auto) Ida # (Auto) 1.2 H Eos # (Auto) 0.5 H Seg Neutrophils % 70.5 H Seg Neuts % (Manual) Baso # (Auto) 0.2 H Lymphocytes % (Manual) Monocytes % (Manual) Eosinophils % (Manual) Basophils % (Manual) Seg Neutrophils # 9.8 H Seg Neutrophils # Man Lymphocytes # (Manual) Monocytes # (Manual) Eosinophils # (Manual) Nucleated RBC % Basophils # (Manual) PT INR APTT Heparin Anti-Xa Level ABG pH POC ABG pO2 ABG pO2 ABG HCO3 ABG O2 Saturation ABG Base Excess POC ABG pCO2 ABG Hemoglobin ABG Oxyhemoglobin ABG Glucose Oxyhemoglobin Sodium Potassium Chloride Carbon Dioxide BUN Creatinine Glucose POC Glucose 162 H 144 H Lactic Acid Calcium Phosphorus Magnesium AST ALT Lactate Dehydrogenase CK-MB (CK-2) C-Reactive Protein NT-Pro-B Natriuret Pep Total Protein Albumin Arterial Blood Glucose Urine WBC (Auto) Urine Creatinine 12/17/19 12/17/19 12/17/19 05:30 06:06 11:50 WBC RBC Hgb Hct MCHC RDW MCV MCH Lymph % (Auto) Ida % (Auto) Ida # Eos # Lymph # (Auto) Ida # (Auto) Eos # (Auto) Seg Neutrophils % Seg Neuts % (Manual) Baso # (Auto) Lymphocytes % (Manual) Monocytes % (Manual) Eosinophils % (Manual) Basophils % (Manual) Seg Neutrophils # Seg Neutrophils # Man Lymphocytes # (Manual) Monocytes # (Manual) Eosinophils # (Manual) Nucleated RBC % Basophils # (Manual) PT INR APTT Heparin Anti-Xa Level ABG pH POC ABG pO2 ABG pO2 ABG HCO3 ABG O2 Saturation ABG Base Excess POC ABG pCO2 ABG Hemoglobin ABG Oxyhemoglobin ABG Glucose Oxyhemoglobin Sodium Potassium Chloride 97.4 L Carbon Dioxide 32 H BUN Creatinine 0.5 L Glucose 135 H POC Glucose 151 H 140 H Lactic Acid Calcium Phosphorus Magnesium AST ALT Lactate Dehydrogenase CK-MB (CK-2) C-Reactive Protein NT-Pro-B Natriuret Pep Total Protein Albumin Arterial Blood Glucose Urine WBC (Auto) Urine Creatinine 12/17/19 12/17/19 12/18/19 17:50 23:46 05:17 WBC RBC Hgb 8.8 L Hct 28.0 L MCHC RDW MCV MCH Lymph % (Auto) Ida % (Auto) Ida # Eos # Lymph # (Auto) Ida # (Auto) Eos # (Auto) Seg Neutrophils % Seg Neuts % (Manual) Baso # (Auto) Lymphocytes % (Manual) Monocytes % (Manual) Eosinophils % (Manual) Basophils % (Manual) Seg Neutrophils # Seg Neutrophils # Man Lymphocytes # (Manual) Monocytes # (Manual) Eosinophils # (Manual) Nucleated RBC % Basophils # (Manual) PT INR APTT Heparin Anti-Xa Level ABG pH POC ABG pO2 ABG pO2 ABG HCO3 ABG O2 Saturation ABG Base Excess POC ABG pCO2 ABG Hemoglobin ABG Oxyhemoglobin ABG Glucose Oxyhemoglobin Sodium Potassium Chloride Carbon Dioxide BUN Creatinine Glucose POC Glucose 158 H 150 H Lactic Acid Calcium Phosphorus Magnesium AST ALT Lactate Dehydrogenase CK-MB (CK-2) C-Reactive Protein NT-Pro-B Natriuret Pep Total Protein Albumin Arterial Blood Glucose Urine WBC (Auto) Urine Creatinine 12/18/19 12/18/19 12/18/19 05:17 05:49 11:12 WBC RBC Hgb Hct MCHC RDW MCV MCH Lymph % (Auto) Ida % (Auto) Ida # Eos # Lymph # (Auto) Ida # (Auto) Eos # (Auto) Seg Neutrophils % Seg Neuts % (Manual) Baso # (Auto) Lymphocytes % (Manual) Monocytes % (Manual) Eosinophils % (Manual) Basophils % (Manual) Seg Neutrophils # Seg Neutrophils # Man Lymphocytes # (Manual) Monocytes # (Manual) Eosinophils # (Manual) Nucleated RBC % Basophils # (Manual) PT INR APTT Heparin Anti-Xa Level 0.16 L ABG pH POC ABG pO2 ABG pO2 ABG HCO3 ABG O2 Saturation ABG Base Excess POC ABG pCO2 ABG Hemoglobin ABG Oxyhemoglobin ABG Glucose Oxyhemoglobin Sodium Potassium Chloride Carbon Dioxide BUN Creatinine Glucose POC Glucose 127 H 191 H Lactic Acid Calcium Phosphorus Magnesium AST ALT Lactate Dehydrogenase CK-MB (CK-2) C-Reactive Protein NT-Pro-B Natriuret Pep Total Protein Albumin Arterial Blood Glucose Urine WBC (Auto) Urine Creatinine 12/18/19 12/18/19 12/19/19 17:03 20:16 00:08 WBC RBC Hgb Hct MCHC RDW MCV MCH Lymph % (Auto) Ida % (Auto) Ida # Eos # Lymph # (Auto) Ida # (Auto) Eos # (Auto) Seg Neutrophils % Seg Neuts % (Manual) Baso # (Auto) Lymphocytes % (Manual) Monocytes % (Manual) Eosinophils % (Manual) Basophils % (Manual) Seg Neutrophils # Seg Neutrophils # Man Lymphocytes # (Manual) Monocytes # (Manual) Eosinophils # (Manual) Nucleated RBC % Basophils # (Manual) PT INR APTT Heparin Anti-Xa Level ABG pH POC ABG pO2 ABG pO2 ABG HCO3 ABG O2 Saturation ABG Base Excess POC ABG pCO2 ABG Hemoglobin ABG Oxyhemoglobin ABG Glucose Oxyhemoglobin Sodium Potassium Chloride Carbon Dioxide BUN Creatinine Glucose POC Glucose 133 H 128 H 129 H Lactic Acid Calcium Phosphorus Magnesium AST ALT Lactate Dehydrogenase CK-MB (CK-2) C-Reactive Protein NT-Pro-B Natriuret Pep Total Protein Albumin Arterial Blood Glucose Urine WBC (Auto) Urine Creatinine 12/19/19 12/19/19 12/19/19 04:45 04:45 05:35 WBC RBC Hgb Hct MCHC RDW MCV MCH Lymph % (Auto) Ida % (Auto) Ida # Eos # Lymph # (Auto) Ida # (Auto) Eos # (Auto) Seg Neutrophils % Seg Neuts % (Manual) Baso # (Auto) Lymphocytes % (Manual) Monocytes % (Manual) Eosinophils % (Manual) Basophils % (Manual) Seg Neutrophils # Seg Neutrophils # Man Lymphocytes # (Manual) Monocytes # (Manual) Eosinophils # (Manual) Nucleated RBC % Basophils # (Manual) PT INR APTT Heparin Anti-Xa Level 0.17 L ABG pH POC ABG pO2 ABG pO2 ABG HCO3 ABG O2 Saturation ABG Base Excess POC ABG pCO2 ABG Hemoglobin ABG Oxyhemoglobin ABG Glucose Oxyhemoglobin Sodium Potassium Chloride Carbon Dioxide BUN Creatinine Glucose POC Glucose 120 H Lactic Acid Calcium Phosphorus Magnesium AST ALT Lactate Dehydrogenase 228 H CK-MB (CK-2) C-Reactive Protein NT-Pro-B Natriuret Pep Total Protein Albumin Arterial Blood Glucose Urine WBC (Auto) Urine Creatinine 12/19/19 12/19/19 12/19/19 09:20 11:32 11:32 WBC 14.6 H RBC 3.08 L Hgb 9.0 L Hct 26.8 L MCHC RDW 15.9 H MCV MCH Lymph % (Auto) Ida % (Auto) Ida # Eos # Lymph # (Auto) Ida # (Auto) Eos # (Auto) Seg Neutrophils % Seg Neuts % (Manual) 82.0 H Baso # (Auto) Lymphocytes % (Manual) 10.0 L Monocytes % (Manual) Eosinophils % (Manual) Basophils % (Manual) Seg Neutrophils # Seg Neutrophils # Man 12.0 H Lymphocytes # (Manual) Monocytes # (Manual) 0.9 H Eosinophils # (Manual) Nucleated RBC % 1.0 H Basophils # (Manual) PT INR APTT Heparin Anti-Xa Level ABG pH 7.451 H POC ABG pO2 ABG pO2 62.6 L ABG HCO3 33.2 H ABG O2 Saturation 93.8 L ABG Base Excess 8.3 H POC ABG pCO2 ABG Hemoglobin 8.3 L ABG Oxyhemoglobin ABG Glucose Oxyhemoglobin 91.9 L Sodium Potassium Chloride 95.0 L Carbon Dioxide 33 H BUN 22 H Creatinine 0.6 L Glucose 150 H POC Glucose Lactic Acid Calcium Phosphorus Magnesium AST ALT Lactate Dehydrogenase CK-MB (CK-2) C-Reactive Protein NT-Pro-B Natriuret Pep Total Protein 6.2 L Albumin 2.4 L Arterial Blood Glucose Urine WBC (Auto) Urine Creatinine 12/19/19 12/19/19 12/20/19 11:56 18:17 00:09 WBC RBC Hgb Hct MCHC RDW MCV MCH Lymph % (Auto) Ida % (Auto) Ida # Eos # Lymph # (Auto) Ida # (Auto) Eos # (Auto) Seg Neutrophils % Seg Neuts % (Manual) Baso # (Auto) Lymphocytes % (Manual) Monocytes % (Manual) Eosinophils % (Manual) Basophils % (Manual) Seg Neutrophils # Seg Neutrophils # Man Lymphocytes # (Manual) Monocytes # (Manual) Eosinophils # (Manual) Nucleated RBC % Basophils # (Manual) PT INR APTT Heparin Anti-Xa Level ABG pH POC ABG pO2 ABG pO2 ABG HCO3 ABG O2 Saturation ABG Base Excess POC ABG pCO2 ABG Hemoglobin ABG Oxyhemoglobin ABG Glucose Oxyhemoglobin Sodium Potassium Chloride Carbon Dioxide BUN Creatinine Glucose POC Glucose 156 H 156 H 155 H Lactic Acid Calcium Phosphorus Magnesium AST ALT Lactate Dehydrogenase CK-MB (CK-2) C-Reactive Protein NT-Pro-B Natriuret Pep Total Protein Albumin Arterial Blood Glucose Urine WBC (Auto) Urine Creatinine 12/20/19 12/20/19 12/20/19 05:26 06:02 18:17 WBC RBC Hgb Hct MCHC RDW MCV MCH Lymph % (Auto) Ida % (Auto) Ida # Eos # Lymph # (Auto) Ida # (Auto) Eos # (Auto) Seg Neutrophils % Seg Neuts % (Manual) Baso # (Auto) Lymphocytes % (Manual) Monocytes % (Manual) Eosinophils % (Manual) Basophils % (Manual) Seg Neutrophils # Seg Neutrophils # Man Lymphocytes # (Manual) Monocytes # (Manual) Eosinophils # (Manual) Nucleated RBC % Basophils # (Manual) PT INR APTT Heparin Anti-Xa Level 0.19 L ABG pH POC ABG pO2 ABG pO2 ABG HCO3 ABG O2 Saturation ABG Base Excess POC ABG pCO2 ABG Hemoglobin ABG Oxyhemoglobin ABG Glucose Oxyhemoglobin Sodium Potassium Chloride Carbon Dioxide BUN Creatinine Glucose POC Glucose 137 H 128 H Lactic Acid Calcium Phosphorus Magnesium AST ALT Lactate Dehydrogenase CK-MB (CK-2) C-Reactive Protein NT-Pro-B Natriuret Pep Total Protein Albumin Arterial Blood Glucose Urine WBC (Auto) Urine Creatinine 12/20/19 12/21/19 12/21/19 23:34 05:31 05:31 WBC 12.7 H RBC 3.09 L Hgb 8.9 L Hct 27.4 L MCHC RDW 15.8 H MCV MCH Lymph % (Auto) 12.1 L Ida % (Auto) 7.8 H Ida # Eos # Lymph # (Auto) Ida # (Auto) 1.0 H Eos # (Auto) Seg Neutrophils % 77.1 H Seg Neuts % (Manual) Baso # (Auto) Lymphocytes % (Manual) Monocytes % (Manual) Eosinophils % (Manual) Basophils % (Manual) Seg Neutrophils # 9.8 H Seg Neutrophils # Man Lymphocytes # (Manual) Monocytes # (Manual) Eosinophils # (Manual) Nucleated RBC % Basophils # (Manual) PT INR APTT Heparin Anti-Xa Level ABG pH POC ABG pO2 ABG pO2 ABG HCO3 ABG O2 Saturation ABG Base Excess POC ABG pCO2 ABG Hemoglobin ABG Oxyhemoglobin ABG Glucose Oxyhemoglobin Sodium Potassium Chloride 96.9 L Carbon Dioxide 37 H BUN 27 H Creatinine 0.7 L Glucose 140 H POC Glucose 145 H Lactic Acid Calcium Phosphorus Magnesium AST ALT Lactate Dehydrogenase CK-MB (CK-2) C-Reactive Protein NT-Pro-B Natriuret Pep Total Protein Albumin Arterial Blood Glucose Urine WBC (Auto) Urine Creatinine 12/21/19 12/21/19 12/21/19 05:38 10:13 11:51 WBC RBC Hgb Hct MCHC RDW MCV MCH Lymph % (Auto) Ida % (Auto) Ida # Eos # Lymph # (Auto) Ida # (Auto) Eos # (Auto) Seg Neutrophils % Seg Neuts % (Manual) Baso # (Auto) Lymphocytes % (Manual) Monocytes % (Manual) Eosinophils % (Manual) Basophils % (Manual) Seg Neutrophils # Seg Neutrophils # Man Lymphocytes # (Manual) Monocytes # (Manual) Eosinophils # (Manual) Nucleated RBC % Basophils # (Manual) PT INR APTT 23.9 L Heparin Anti-Xa Level < 0.10 L ABG pH POC ABG pO2 ABG pO2 ABG HCO3 ABG O2 Saturation ABG Base Excess POC ABG pCO2 ABG Hemoglobin ABG Oxyhemoglobin ABG Glucose Oxyhemoglobin Sodium Potassium Chloride Carbon Dioxide BUN Creatinine Glucose POC Glucose 151 H 145 H Lactic Acid Calcium Phosphorus Magnesium AST ALT Lactate Dehydrogenase CK-MB (CK-2) C-Reactive Protein NT-Pro-B Natriuret Pep Total Protein Albumin Arterial Blood Glucose Urine WBC (Auto) Urine Creatinine 12/21/19 12/22/19 12/22/19 17:16 00:01 01:33 WBC RBC Hgb Hct MCHC RDW MCV MCH Lymph % (Auto) Ida % (Auto) Ida # Eos # Lymph # (Auto) Ida # (Auto) Eos # (Auto) Seg Neutrophils % Seg Neuts % (Manual) Baso # (Auto) Lymphocytes % (Manual) Monocytes % (Manual) Eosinophils % (Manual) Basophils % (Manual) Seg Neutrophils # Seg Neutrophils # Man Lymphocytes # (Manual) Monocytes # (Manual) Eosinophils # (Manual) Nucleated RBC % Basophils # (Manual) PT INR APTT Heparin Anti-Xa Level 0.10 L ABG pH POC ABG pO2 ABG pO2 ABG HCO3 ABG O2 Saturation ABG Base Excess POC ABG pCO2 ABG Hemoglobin ABG Oxyhemoglobin ABG Glucose Oxyhemoglobin Sodium Potassium Chloride Carbon Dioxide BUN Creatinine Glucose POC Glucose 167 H 179 H Lactic Acid Calcium Phosphorus Magnesium AST ALT Lactate Dehydrogenase CK-MB (CK-2) C-Reactive Protein NT-Pro-B Natriuret Pep Total Protein Albumin Arterial Blood Glucose Urine WBC (Auto) Urine Creatinine 12/22/19 12/22/19 12/22/19 03:22 05:10 05:10 WBC 13.8 H RBC 3.20 L Hgb 8.9 L Hct 28.1 L MCHC RDW 15.9 H MCV MCH Lymph % (Auto) Ida % (Auto) Ida # Eos # Lymph # (Auto) Ida # (Auto) Eos # (Auto) Seg Neutrophils % Seg Neuts % (Manual) Baso # (Auto) Lymphocytes % (Manual) Monocytes % (Manual) Eosinophils % (Manual) Basophils % (Manual) Seg Neutrophils # Seg Neutrophils # Man Lymphocytes # (Manual) Monocytes # (Manual) Eosinophils # (Manual) Nucleated RBC % Basophils # (Manual) PT INR APTT Heparin Anti-Xa Level ABG pH POC ABG pO2 52.3 L ABG pO2 ABG HCO3 ABG O2 Saturation ABG Base Excess POC ABG pCO2 52.9 H ABG Hemoglobin 10.7 L ABG Oxyhemoglobin 84 L ABG Glucose Oxyhemoglobin Sodium Potassium Chloride 96.6 L Carbon Dioxide BUN 25 H Creatinine 0.7 L Glucose 129 H POC Glucose Lactic Acid Calcium Phosphorus Magnesium AST ALT Lactate Dehydrogenase CK-MB (CK-2) C-Reactive Protein NT-Pro-B Natriuret Pep Total Protein Albumin Arterial Blood Glucose Urine WBC (Auto) Urine Creatinine 12/22/19 12/22/19 12/22/19 05:18 12:32 12:43 WBC RBC Hgb Hct MCHC RDW MCV MCH Lymph % (Auto) Ida % (Auto) Ida # Eos # Lymph # (Auto) Ida # (Auto) Eos # (Auto) Seg Neutrophils % Seg Neuts % (Manual) Baso # (Auto) Lymphocytes % (Manual) Monocytes % (Manual) Eosinophils % (Manual) Basophils % (Manual) Seg Neutrophils # Seg Neutrophils # Man Lymphocytes # (Manual) Monocytes # (Manual) Eosinophils # (Manual) Nucleated RBC % Basophils # (Manual) PT INR APTT Heparin Anti-Xa Level 0.18 L ABG pH POC ABG pO2 ABG pO2 ABG HCO3 ABG O2 Saturation ABG Base Excess POC ABG pCO2 ABG Hemoglobin ABG Oxyhemoglobin ABG Glucose Oxyhemoglobin Sodium Potassium Chloride Carbon Dioxide BUN Creatinine Glucose POC Glucose 131 H 208 H Lactic Acid Calcium Phosphorus Magnesium AST ALT Lactate Dehydrogenase CK-MB (CK-2) C-Reactive Protein NT-Pro-B Natriuret Pep Total Protein Albumin Arterial Blood Glucose Urine WBC (Auto) Urine Creatinine 12/22/19 12/22/19 12/23/19 17:44 23:20 03:51 WBC 15.2 H RBC 3.43 L Hgb 9.6 L Hct 30.3 L MCHC RDW 15.9 H MCV MCH Lymph % (Auto) Ida % (Auto) Ida # Eos # Lymph # (Auto) Ida # (Auto) Eos # (Auto) Seg Neutrophils % Seg Neuts % (Manual) Baso # (Auto) Lymphocytes % (Manual) Monocytes % (Manual) Eosinophils % (Manual) Basophils % (Manual) Seg Neutrophils # Seg Neutrophils # Man Lymphocytes # (Manual) Monocytes # (Manual) Eosinophils # (Manual) Nucleated RBC % Basophils # (Manual) PT INR APTT Heparin Anti-Xa Level ABG pH POC ABG pO2 ABG pO2 ABG HCO3 ABG O2 Saturation ABG Base Excess POC ABG pCO2 ABG Hemoglobin ABG Oxyhemoglobin ABG Glucose Oxyhemoglobin Sodium Potassium Chloride Carbon Dioxide BUN Creatinine Glucose POC Glucose 209 H 119 H Lactic Acid Calcium Phosphorus Magnesium AST ALT Lactate Dehydrogenase CK-MB (CK-2) C-Reactive Protein NT-Pro-B Natriuret Pep Total Protein Albumin Arterial Blood Glucose Urine WBC (Auto) Urine Creatinine 12/23/19 12/23/19 12/23/19 03:51 05:31 12:09 WBC RBC Hgb Hct MCHC RDW MCV MCH Lymph % (Auto) Ida % (Auto) Ida # Eos # Lymph # (Auto) Ida # (Auto) Eos # (Auto) Seg Neutrophils % Seg Neuts % (Manual) Baso # (Auto) Lymphocytes % (Manual) Monocytes % (Manual) Eosinophils % (Manual) Basophils % (Manual) Seg Neutrophils # Seg Neutrophils # Man Lymphocytes # (Manual) Monocytes # (Manual) Eosinophils # (Manual) Nucleated RBC % Basophils # (Manual) PT INR APTT Heparin Anti-Xa Level ABG pH POC ABG pO2 ABG pO2 ABG HCO3 ABG O2 Saturation ABG Base Excess POC ABG pCO2 ABG Hemoglobin ABG Oxyhemoglobin ABG Glucose Oxyhemoglobin Sodium Potassium Chloride 97.2 L Carbon Dioxide 31 H BUN 23 H Creatinine 0.6 L Glucose 153 H POC Glucose 149 H 144 H Lactic Acid Calcium Phosphorus Magnesium AST ALT Lactate Dehydrogenase CK-MB (CK-2) C-Reactive Protein NT-Pro-B Natriuret Pep Total Protein Albumin Arterial Blood Glucose Urine WBC (Auto) Urine Creatinine 12/23/19 12/23/19 12/23/19 15:30 17:49 23:31 WBC RBC Hgb Hct MCHC RDW MCV MCH Lymph % (Auto) Ida % (Auto) Ida # Eos # Lymph # (Auto) Ida # (Auto) Eos # (Auto) Seg Neutrophils % Seg Neuts % (Manual) Baso # (Auto) Lymphocytes % (Manual) Monocytes % (Manual) Eosinophils % (Manual) Basophils % (Manual) Seg Neutrophils # Seg Neutrophils # Man Lymphocytes # (Manual) Monocytes # (Manual) Eosinophils # (Manual) Nucleated RBC % Basophils # (Manual) PT INR APTT Heparin Anti-Xa Level 0.21 L ABG pH POC ABG pO2 ABG pO2 ABG HCO3 ABG O2 Saturation ABG Base Excess POC ABG pCO2 ABG Hemoglobin ABG Oxyhemoglobin ABG Glucose Oxyhemoglobin Sodium Potassium Chloride Carbon Dioxide BUN Creatinine Glucose POC Glucose 192 H 151 H Lactic Acid Calcium Phosphorus Magnesium AST ALT Lactate Dehydrogenase CK-MB (CK-2) C-Reactive Protein NT-Pro-B Natriuret Pep Total Protein Albumin Arterial Blood Glucose Urine WBC (Auto) Urine Creatinine 12/24/19 12/24/19 12/24/19 05:34 12:13 16:50 WBC RBC Hgb Hct MCHC RDW MCV MCH Lymph % (Auto) Ida % (Auto) Ida # Eos # Lymph # (Auto) Ida # (Auto) Eos # (Auto) Seg Neutrophils % Seg Neuts % (Manual) Baso # (Auto) Lymphocytes % (Manual) Monocytes % (Manual) Eosinophils % (Manual) Basophils % (Manual) Seg Neutrophils # Seg Neutrophils # Man Lymphocytes # (Manual) Monocytes # (Manual) Eosinophils # (Manual) Nucleated RBC % Basophils # (Manual) PT INR APTT Heparin Anti-Xa Level 0.16 L ABG pH POC ABG pO2 ABG pO2 ABG HCO3 ABG O2 Saturation ABG Base Excess POC ABG pCO2 ABG Hemoglobin ABG Oxyhemoglobin ABG Glucose Oxyhemoglobin Sodium Potassium Chloride Carbon Dioxide BUN Creatinine Glucose POC Glucose 145 H 124 H Lactic Acid Calcium Phosphorus Magnesium AST ALT Lactate Dehydrogenase CK-MB (CK-2) C-Reactive Protein NT-Pro-B Natriuret Pep Total Protein Albumin Arterial Blood Glucose Urine WBC (Auto) Urine Creatinine 12/24/19 12/25/19 12/25/19 17:53 00:14 04:18 WBC 12.9 H RBC 3.30 L Hgb 9.1 L Hct 28.8 L MCHC RDW 16.4 H MCV MCH Lymph % (Auto) Ida % (Auto) 7.8 H Ida # Eos # Lymph # (Auto) Ida # (Auto) 1.0 H Eos # (Auto) Seg Neutrophils % 75.5 H Seg Neuts % (Manual) Baso # (Auto) Lymphocytes % (Manual) Monocytes % (Manual) Eosinophils % (Manual) Basophils % (Manual) Seg Neutrophils # 9.7 H Seg Neutrophils # Man Lymphocytes # (Manual) Monocytes # (Manual) Eosinophils # (Manual) Nucleated RBC % Basophils # (Manual) PT INR APTT Heparin Anti-Xa Level ABG pH POC ABG pO2 ABG pO2 ABG HCO3 ABG O2 Saturation ABG Base Excess POC ABG pCO2 ABG Hemoglobin ABG Oxyhemoglobin ABG Glucose Oxyhemoglobin Sodium Potassium Chloride Carbon Dioxide BUN Creatinine Glucose POC Glucose 164 H 148 H Lactic Acid Calcium Phosphorus Magnesium AST ALT Lactate Dehydrogenase CK-MB (CK-2) C-Reactive Protein NT-Pro-B Natriuret Pep Total Protein Albumin Arterial Blood Glucose Urine WBC (Auto) Urine Creatinine 12/25/19 12/25/19 12/25/19 04:18 05:38 11:44 WBC RBC Hgb Hct MCHC RDW MCV MCH Lymph % (Auto) Ida % (Auto) Ida # Eos # Lymph # (Auto) Ida # (Auto) Eos # (Auto) Seg Neutrophils % Seg Neuts % (Manual) Baso # (Auto) Lymphocytes % (Manual) Monocytes % (Manual) Eosinophils % (Manual) Basophils % (Manual) Seg Neutrophils # Seg Neutrophils # Man Lymphocytes # (Manual) Monocytes # (Manual) Eosinophils # (Manual) Nucleated RBC % Basophils # (Manual) PT INR APTT Heparin Anti-Xa Level ABG pH POC ABG pO2 ABG pO2 ABG HCO3 ABG O2 Saturation ABG Base Excess POC ABG pCO2 ABG Hemoglobin ABG Oxyhemoglobin ABG Glucose Oxyhemoglobin Sodium Potassium Chloride Carbon Dioxide 33 H BUN 27 H Creatinine 0.6 L Glucose 132 H POC Glucose 152 H 166 H Lactic Acid Calcium Phosphorus Magnesium AST ALT Lactate Dehydrogenase CK-MB (CK-2) C-Reactive Protein NT-Pro-B Natriuret Pep Total Protein Albumin Arterial Blood Glucose Urine WBC (Auto) Urine Creatinine 12/25/19 12/26/19 12/26/19 18:29 00:17 00:18 WBC RBC Hgb Hct MCHC RDW MCV MCH Lymph % (Auto) Ida % (Auto) Ida # Eos # Lymph # (Auto) Ida # (Auto) Eos # (Auto) Seg Neutrophils % Seg Neuts % (Manual) Baso # (Auto) Lymphocytes % (Manual) Monocytes % (Manual) Eosinophils % (Manual) Basophils % (Manual) Seg Neutrophils # Seg Neutrophils # Man Lymphocytes # (Manual) Monocytes # (Manual) Eosinophils # (Manual) Nucleated RBC % Basophils # (Manual) PT INR APTT Heparin Anti-Xa Level ABG pH POC ABG pO2 ABG pO2 ABG HCO3 ABG O2 Saturation ABG Base Excess POC ABG pCO2 ABG Hemoglobin ABG Oxyhemoglobin ABG Glucose Oxyhemoglobin Sodium Potassium Chloride 97.8 L Carbon Dioxide BUN 25 H Creatinine 0.6 L Glucose 140 H POC Glucose 194 H 151 H Lactic Acid Calcium Phosphorus Magnesium AST ALT Lactate Dehydrogenase CK-MB (CK-2) C-Reactive Protein NT-Pro-B Natriuret Pep Total Protein Albumin Arterial Blood Glucose Urine WBC (Auto) Urine Creatinine 12/26/19 12/26/19 12/26/19 05:36 11:41 17:50 WBC RBC Hgb Hct MCHC RDW MCV MCH Lymph % (Auto) Ida % (Auto) Ida # Eos # Lymph # (Auto) Ida # (Auto) Eos # (Auto) Seg Neutrophils % Seg Neuts % (Manual) Baso # (Auto) Lymphocytes % (Manual) Monocytes % (Manual) Eosinophils % (Manual) Basophils % (Manual) Seg Neutrophils # Seg Neutrophils # Man Lymphocytes # (Manual) Monocytes # (Manual) Eosinophils # (Manual) Nucleated RBC % Basophils # (Manual) PT INR APTT Heparin Anti-Xa Level ABG pH POC ABG pO2 ABG pO2 ABG HCO3 ABG O2 Saturation ABG Base Excess POC ABG pCO2 ABG Hemoglobin ABG Oxyhemoglobin ABG Glucose Oxyhemoglobin Sodium Potassium Chloride Carbon Dioxide BUN Creatinine Glucose POC Glucose 156 H 148 H 139 H Lactic Acid Calcium Phosphorus Magnesium AST ALT Lactate Dehydrogenase CK-MB (CK-2) C-Reactive Protein NT-Pro-B Natriuret Pep Total Protein Albumin Arterial Blood Glucose Urine WBC (Auto) Urine Creatinine 12/26/19 12/27/19 12/27/19 23:19 05:34 12:02 WBC RBC Hgb Hct MCHC RDW MCV MCH Lymph % (Auto) Ida % (Auto) Ida # Eos # Lymph # (Auto) Ida # (Auto) Eos # (Auto) Seg Neutrophils % Seg Neuts % (Manual) Baso # (Auto) Lymphocytes % (Manual) Monocytes % (Manual) Eosinophils % (Manual) Basophils % (Manual) Seg Neutrophils # Seg Neutrophils # Man Lymphocytes # (Manual) Monocytes # (Manual) Eosinophils # (Manual) Nucleated RBC % Basophils # (Manual) PT INR APTT Heparin Anti-Xa Level ABG pH POC ABG pO2 ABG pO2 ABG HCO3 ABG O2 Saturation ABG Base Excess POC ABG pCO2 ABG Hemoglobin ABG Oxyhemoglobin ABG Glucose Oxyhemoglobin Sodium Potassium Chloride Carbon Dioxide BUN Creatinine Glucose POC Glucose 161 H 145 H 157 H Lactic Acid Calcium Phosphorus Magnesium AST ALT Lactate Dehydrogenase CK-MB (CK-2) C-Reactive Protein NT-Pro-B Natriuret Pep Total Protein Albumin Arterial Blood Glucose Urine WBC (Auto) Urine Creatinine 12/27/19 12/27/19 12/27/19 17:35 20:11 23:00 WBC RBC Hgb Hct MCHC RDW MCV MCH Lymph % (Auto) Ida % (Auto) Ida # Eos # Lymph # (Auto) Ida # (Auto) Eos # (Auto) Seg Neutrophils % Seg Neuts % (Manual) Baso # (Auto) Lymphocytes % (Manual) Monocytes % (Manual) Eosinophils % (Manual) Basophils % (Manual) Seg Neutrophils # Seg Neutrophils # Man Lymphocytes # (Manual) Monocytes # (Manual) Eosinophils # (Manual) Nucleated RBC % Basophils # (Manual) PT INR APTT Heparin Anti-Xa Level 0.19 L ABG pH POC ABG pO2 ABG pO2 ABG HCO3 ABG O2 Saturation ABG Base Excess POC ABG pCO2 ABG Hemoglobin ABG Oxyhemoglobin ABG Glucose Oxyhemoglobin Sodium Potassium Chloride Carbon Dioxide BUN Creatinine Glucose POC Glucose 158 H 155 H Lactic Acid Calcium Phosphorus Magnesium AST ALT Lactate Dehydrogenase CK-MB (CK-2) C-Reactive Protein NT-Pro-B Natriuret Pep Total Protein Albumin Arterial Blood Glucose Urine WBC (Auto) Urine Creatinine 12/27/19 12/28/19 12/28/19 23:45 02:41 02:41 WBC 13.0 H RBC 3.48 L Hgb 9.5 L Hct 30.6 L MCHC 31 L RDW 16.6 H MCV MCH 27 L Lymph % (Auto) 13.0 L Ida % (Auto) 8.0 H Ida # Eos # Lymph # (Auto) Ida # (Auto) 1.0 H Eos # (Auto) Seg Neutrophils % 76.3 H Seg Neuts % (Manual) Baso # (Auto) Lymphocytes % (Manual) Monocytes % (Manual) Eosinophils % (Manual) Basophils % (Manual) Seg Neutrophils # 9.9 H Seg Neutrophils # Man Lymphocytes # (Manual) Monocytes # (Manual) Eosinophils # (Manual) Nucleated RBC % Basophils # (Manual) PT INR APTT Heparin Anti-Xa Level ABG pH POC ABG pO2 ABG pO2 ABG HCO3 ABG O2 Saturation ABG Base Excess POC ABG pCO2 ABG Hemoglobin ABG Oxyhemoglobin ABG Glucose Oxyhemoglobin Sodium Potassium Chloride Carbon Dioxide BUN 22 H Creatinine 0.6 L Glucose 101 H POC Glucose 130 H Lactic Acid Calcium Phosphorus Magnesium AST ALT Lactate Dehydrogenase CK-MB (CK-2) C-Reactive Protein NT-Pro-B Natriuret Pep Total Protein Albumin Arterial Blood Glucose Urine WBC (Auto) Urine Creatinine 12/28/19 12/28/19 12/28/19 06:00 12:34 18:13 WBC RBC Hgb Hct MCHC RDW MCV MCH Lymph % (Auto) Ida % (Auto) Ida # Eos # Lymph # (Auto) Ida # (Auto) Eos # (Auto) Seg Neutrophils % Seg Neuts % (Manual) Baso # (Auto) Lymphocytes % (Manual) Monocytes % (Manual) Eosinophils % (Manual) Basophils % (Manual) Seg Neutrophils # Seg Neutrophils # Man Lymphocytes # (Manual) Monocytes # (Manual) Eosinophils # (Manual) Nucleated RBC % Basophils # (Manual) PT INR APTT Heparin Anti-Xa Level ABG pH POC ABG pO2 ABG pO2 ABG HCO3 ABG O2 Saturation ABG Base Excess POC ABG pCO2 ABG Hemoglobin ABG Oxyhemoglobin ABG Glucose Oxyhemoglobin Sodium Potassium Chloride Carbon Dioxide BUN Creatinine Glucose POC Glucose 150 H 161 H 128 H Lactic Acid Calcium Phosphorus Magnesium AST ALT Lactate Dehydrogenase CK-MB (CK-2) C-Reactive Protein NT-Pro-B Natriuret Pep Total Protein Albumin Arterial Blood Glucose Urine WBC (Auto) Urine Creatinine 12/28/19 12/29/19 12/29/19 23:36 05:21 11:40 WBC RBC Hgb Hct MCHC RDW MCV MCH Lymph % (Auto) Ida % (Auto) Ida # Eos # Lymph # (Auto) Ida # (Auto) Eos # (Auto) Seg Neutrophils % Seg Neuts % (Manual) Baso # (Auto) Lymphocytes % (Manual) Monocytes % (Manual) Eosinophils % (Manual) Basophils % (Manual) Seg Neutrophils # Seg Neutrophils # Man Lymphocytes # (Manual) Monocytes # (Manual) Eosinophils # (Manual) Nucleated RBC % Basophils # (Manual) PT INR APTT Heparin Anti-Xa Level ABG pH POC ABG pO2 ABG pO2 ABG HCO3 ABG O2 Saturation ABG Base Excess POC ABG pCO2 ABG Hemoglobin ABG Oxyhemoglobin ABG Glucose Oxyhemoglobin Sodium Potassium Chloride Carbon Dioxide BUN Creatinine Glucose POC Glucose 137 H 136 H 166 H Lactic Acid Calcium Phosphorus Magnesium AST ALT Lactate Dehydrogenase CK-MB (CK-2) C-Reactive Protein NT-Pro-B Natriuret Pep Total Protein Albumin Arterial Blood Glucose Urine WBC (Auto) Urine Creatinine 12/29/19 12/29/19 12/29/19 17:23 19:21 23:38 WBC RBC Hgb Hct MCHC RDW MCV MCH Lymph % (Auto) Ida % (Auto) Ida # Eos # Lymph # (Auto) Ida # (Auto) Eos # (Auto) Seg Neutrophils % Seg Neuts % (Manual) Baso # (Auto) Lymphocytes % (Manual) Monocytes % (Manual) Eosinophils % (Manual) Basophils % (Manual) Seg Neutrophils # Seg Neutrophils # Man Lymphocytes # (Manual) Monocytes # (Manual) Eosinophils # (Manual) Nucleated RBC % Basophils # (Manual) PT INR APTT Heparin Anti-Xa Level 0.20 L ABG pH POC ABG pO2 ABG pO2 ABG HCO3 ABG O2 Saturation ABG Base Excess POC ABG pCO2 ABG Hemoglobin ABG Oxyhemoglobin ABG Glucose Oxyhemoglobin Sodium Potassium Chloride Carbon Dioxide BUN Creatinine Glucose POC Glucose 144 H 141 H Lactic Acid Calcium Phosphorus Magnesium AST ALT Lactate Dehydrogenase CK-MB (CK-2) C-Reactive Protein NT-Pro-B Natriuret Pep Total Protein Albumin Arterial Blood Glucose Urine WBC (Auto) Urine Creatinine 12/30/19 12/30/19 12/30/19 03:58 03:58 04:59 WBC RBC 3.54 L Hgb 9.8 L Hct 30.7 L MCHC RDW 16.8 H MCV MCH Lymph % (Auto) Ida % (Auto) Ida # Eos # Lymph # (Auto) Ida # (Auto) Eos # (Auto) Seg Neutrophils % Seg Neuts % (Manual) Baso # (Auto) Lymphocytes % (Manual) Monocytes % (Manual) Eosinophils % (Manual) Basophils % (Manual) Seg Neutrophils # Seg Neutrophils # Man Lymphocytes # (Manual) Monocytes # (Manual) Eosinophils # (Manual) Nucleated RBC % Basophils # (Manual) PT INR APTT Heparin Anti-Xa Level ABG pH POC ABG pO2 ABG pO2 ABG HCO3 29.8 H ABG O2 Saturation ABG Base Excess 4.8 H POC ABG pCO2 ABG Hemoglobin 11.2 L ABG Oxyhemoglobin ABG Glucose Oxyhemoglobin 93.8 L Sodium Potassium Chloride 97.8 L Carbon Dioxide BUN 26 H Creatinine Glucose 168 H POC Glucose Lactic Acid Calcium Phosphorus Magnesium AST ALT Lactate Dehydrogenase CK-MB (CK-2) C-Reactive Protein NT-Pro-B Natriuret Pep Total Protein Albumin Arterial Blood Glucose Urine WBC (Auto) Urine Creatinine 12/30/19 12/30/19 12/30/19 05:45 11:34 17:28 WBC RBC Hgb Hct MCHC RDW MCV MCH Lymph % (Auto) Ida % (Auto) Ida # Eos # Lymph # (Auto) Ida # (Auto) Eos # (Auto) Seg Neutrophils % Seg Neuts % (Manual) Baso # (Auto) Lymphocytes % (Manual) Monocytes % (Manual) Eosinophils % (Manual) Basophils % (Manual) Seg Neutrophils # Seg Neutrophils # Man Lymphocytes # (Manual) Monocytes # (Manual) Eosinophils # (Manual) Nucleated RBC % Basophils # (Manual) PT INR APTT Heparin Anti-Xa Level ABG pH POC ABG pO2 ABG pO2 ABG HCO3 ABG O2 Saturation ABG Base Excess POC ABG pCO2 ABG Hemoglobin ABG Oxyhemoglobin ABG Glucose Oxyhemoglobin Sodium Potassium Chloride Carbon Dioxide BUN Creatinine Glucose POC Glucose 163 H 180 H 150 H Lactic Acid Calcium Phosphorus Magnesium AST ALT Lactate Dehydrogenase CK-MB (CK-2) C-Reactive Protein NT-Pro-B Natriuret Pep Total Protein Albumin Arterial Blood Glucose Urine WBC (Auto) Urine Creatinine 12/30/19 12/31/19 12/31/19 23:43 04:55 05:07 WBC RBC Hgb Hct MCHC RDW MCV MCH Lymph % (Auto) Ida % (Auto) Ida # Eos # Lymph # (Auto) Ida # (Auto) Eos # (Auto) Seg Neutrophils % Seg Neuts % (Manual) Baso # (Auto) Lymphocytes % (Manual) Monocytes % (Manual) Eosinophils % (Manual) Basophils % (Manual) Seg Neutrophils # Seg Neutrophils # Man Lymphocytes # (Manual) Monocytes # (Manual) Eosinophils # (Manual) Nucleated RBC % Basophils # (Manual) PT INR APTT Heparin Anti-Xa Level ABG pH POC ABG pO2 ABG pO2 ABG HCO3 ABG O2 Saturation ABG Base Excess POC ABG pCO2 ABG Hemoglobin ABG Oxyhemoglobin ABG Glucose Oxyhemoglobin Sodium Potassium 5.6 H D Chloride Carbon Dioxide BUN 33 H Creatinine Glucose 131 H POC Glucose 142 H 134 H Lactic Acid Calcium Phosphorus Magnesium AST ALT Lactate Dehydrogenase CK-MB (CK-2) C-Reactive Protein NT-Pro-B Natriuret Pep Total Protein Albumin Arterial Blood Glucose Urine WBC (Auto) Urine Creatinine 12/31/19 12/31/19 12/31/19 11:30 17:19 17:36 WBC RBC Hgb Hct MCHC RDW MCV MCH Lymph % (Auto) Ida % (Auto) Ida # Eos # Lymph # (Auto) Ida # (Auto) Eos # (Auto) Seg Neutrophils % Seg Neuts % (Manual) Baso # (Auto) Lymphocytes % (Manual) Monocytes % (Manual) Eosinophils % (Manual) Basophils % (Manual) Seg Neutrophils # Seg Neutrophils # Man Lymphocytes # (Manual) Monocytes # (Manual) Eosinophils # (Manual) Nucleated RBC % Basophils # (Manual) PT INR APTT Heparin Anti-Xa Level ABG pH POC ABG pO2 ABG pO2 ABG HCO3 ABG O2 Saturation ABG Base Excess POC ABG pCO2 ABG Hemoglobin ABG Oxyhemoglobin ABG Glucose Oxyhemoglobin Sodium Potassium Chloride Carbon Dioxide BUN 35 H Creatinine Glucose 156 H POC Glucose 158 H 181 H Lactic Acid Calcium Phosphorus Magnesium AST ALT Lactate Dehydrogenase CK-MB (CK-2) C-Reactive Protein NT-Pro-B Natriuret Pep Total Protein Albumin Arterial Blood Glucose Urine WBC (Auto) Urine Creatinine 12/31/19 12/31/19 12/31/19 18:16 19:41 21:53 WBC RBC Hgb Hct MCHC RDW MCV MCH Lymph % (Auto) Ida % (Auto) Ida # Eos # Lymph # (Auto) Ida # (Auto) Eos # (Auto) Seg Neutrophils % Seg Neuts % (Manual) Baso # (Auto) Lymphocytes % (Manual) Monocytes % (Manual) Eosinophils % (Manual) Basophils % (Manual) Seg Neutrophils # Seg Neutrophils # Man Lymphocytes # (Manual) Monocytes # (Manual) Eosinophils # (Manual) Nucleated RBC % Basophils # (Manual) PT INR APTT Heparin Anti-Xa Level 0.20 L ABG pH POC ABG pO2 ABG pO2 ABG HCO3 ABG O2 Saturation ABG Base Excess POC ABG pCO2 ABG Hemoglobin ABG Oxyhemoglobin ABG Glucose Oxyhemoglobin Sodium Potassium Chloride Carbon Dioxide BUN 34 H Creatinine Glucose 169 H POC Glucose 141 H Lactic Acid Calcium Phosphorus Magnesium AST ALT Lactate Dehydrogenase CK-MB (CK-2) C-Reactive Protein NT-Pro-B Natriuret Pep Total Protein Albumin Arterial Blood Glucose Urine WBC (Auto) Urine Creatinine 12/31/19 01/01/20 01/01/20 23:51 05:17 10:40 WBC RBC Hgb Hct MCHC RDW MCV MCH Lymph % (Auto) Ida % (Auto) Ida # Eos # Lymph # (Auto) Ida # (Auto) Eos # (Auto) Seg Neutrophils % Seg Neuts % (Manual) Baso # (Auto) Lymphocytes % (Manual) Monocytes % (Manual) Eosinophils % (Manual) Basophils % (Manual) Seg Neutrophils # Seg Neutrophils # Man Lymphocytes # (Manual) Monocytes # (Manual) Eosinophils # (Manual) Nucleated RBC % Basophils # (Manual) PT INR APTT Heparin Anti-Xa Level ABG pH POC ABG pO2 ABG pO2 ABG HCO3 ABG O2 Saturation ABG Base Excess POC ABG pCO2 ABG Hemoglobin ABG Oxyhemoglobin ABG Glucose Oxyhemoglobin Sodium Potassium Chloride Carbon Dioxide BUN 31 H Creatinine 0.7 L Glucose 137 H POC Glucose 131 H 155 H Lactic Acid Calcium Phosphorus Magnesium AST 73 H ALT 97 H Lactate Dehydrogenase CK-MB (CK-2) C-Reactive Protein NT-Pro-B Natriuret Pep 3866 H Total Protein Albumin 2.8 L Arterial Blood Glucose Urine WBC (Auto) Urine Creatinine 01/01/20 01/01/20 01/01/20 12:26 15:33 17:53 WBC 14.3 H RBC 3.35 L Hgb 9.1 L Hct 28.8 L MCHC RDW 17.0 H MCV MCH 27 L Lymph % (Auto) 7.0 L Ida % (Auto) 7.6 H Ida # Eos # Lymph # (Auto) 1.0 L Ida # (Auto) 1.1 H Eos # (Auto) Seg Neutrophils % 83.3 H Seg Neuts % (Manual) Baso # (Auto) Lymphocytes % (Manual) Monocytes % (Manual) Eosinophils % (Manual) Basophils % (Manual) Seg Neutrophils # 12.0 H Seg Neutrophils # Man Lymphocytes # (Manual) Monocytes # (Manual) Eosinophils # (Manual) Nucleated RBC % Basophils # (Manual) PT INR APTT Heparin Anti-Xa Level ABG pH POC ABG pO2 ABG pO2 ABG HCO3 ABG O2 Saturation ABG Base Excess POC ABG pCO2 ABG Hemoglobin ABG Oxyhemoglobin ABG Glucose Oxyhemoglobin Sodium Potassium Chloride Carbon Dioxide BUN Creatinine Glucose POC Glucose 128 H 128 H Lactic Acid Calcium Phosphorus Magnesium AST ALT Lactate Dehydrogenase CK-MB (CK-2) C-Reactive Protein NT-Pro-B Natriuret Pep Total Protein Albumin Arterial Blood Glucose Urine WBC (Auto) Urine Creatinine 01/01/20 01/02/20 01/02/20 23:04 05:39 07:00 WBC RBC Hgb Hct MCHC RDW MCV MCH Lymph % (Auto) Ida % (Auto) Ida # Eos # Lymph # (Auto) Ida # (Auto) Eos # (Auto) Seg Neutrophils % Seg Neuts % (Manual) Baso # (Auto) Lymphocytes % (Manual) Monocytes % (Manual) Eosinophils % (Manual) Basophils % (Manual) Seg Neutrophils # Seg Neutrophils # Man Lymphocytes # (Manual) Monocytes # (Manual) Eosinophils # (Manual) Nucleated RBC % Basophils # (Manual) PT INR APTT Heparin Anti-Xa Level 0.13 L ABG pH POC ABG pO2 ABG pO2 ABG HCO3 ABG O2 Saturation ABG Base Excess POC ABG pCO2 ABG Hemoglobin ABG Oxyhemoglobin ABG Glucose Oxyhemoglobin Sodium Potassium Chloride Carbon Dioxide BUN Creatinine Glucose POC Glucose 120 H 169 H Lactic Acid Calcium Phosphorus Magnesium AST ALT Lactate Dehydrogenase CK-MB (CK-2) C-Reactive Protein NT-Pro-B Natriuret Pep Total Protein Albumin Arterial Blood Glucose Urine WBC (Auto) Urine Creatinine 01/02/20 01/02/20 01/02/20 12:15 14:06 17:58 WBC RBC Hgb Hct MCHC RDW MCV MCH Lymph % (Auto) Ida % (Auto) Ida # Eos # Lymph # (Auto) Ida # (Auto) Eos # (Auto) Seg Neutrophils % Seg Neuts % (Manual) Baso # (Auto) Lymphocytes % (Manual) Monocytes % (Manual) Eosinophils % (Manual) Basophils % (Manual) Seg Neutrophils # Seg Neutrophils # Man Lymphocytes # (Manual) Monocytes # (Manual) Eosinophils # (Manual) Nucleated RBC % Basophils # (Manual) PT INR APTT Heparin Anti-Xa Level < 0.10 L ABG pH POC ABG pO2 ABG pO2 ABG HCO3 ABG O2 Saturation ABG Base Excess POC ABG pCO2 ABG Hemoglobin ABG Oxyhemoglobin ABG Glucose Oxyhemoglobin Sodium Potassium Chloride Carbon Dioxide BUN Creatinine Glucose POC Glucose 190 H 198 H Lactic Acid Calcium Phosphorus Magnesium AST ALT Lactate Dehydrogenase CK-MB (CK-2) C-Reactive Protein NT-Pro-B Natriuret Pep Total Protein Albumin Arterial Blood Glucose Urine WBC (Auto) Urine Creatinine 01/02/20 01/02/20 01/03/20 21:43 23:33 05:42 WBC RBC Hgb Hct MCHC RDW MCV MCH Lymph % (Auto) Ida % (Auto) Ida # Eos # Lymph # (Auto) Ida # (Auto) Eos # (Auto) Seg Neutrophils % Seg Neuts % (Manual) Baso # (Auto) Lymphocytes % (Manual) Monocytes % (Manual) Eosinophils % (Manual) Basophils % (Manual) Seg Neutrophils # Seg Neutrophils # Man Lymphocytes # (Manual) Monocytes # (Manual) Eosinophils # (Manual) Nucleated RBC % Basophils # (Manual) PT INR APTT Heparin Anti-Xa Level 0.10 L ABG pH POC ABG pO2 ABG pO2 ABG HCO3 ABG O2 Saturation ABG Base Excess POC ABG pCO2 ABG Hemoglobin ABG Oxyhemoglobin ABG Glucose Oxyhemoglobin Sodium Potassium Chloride Carbon Dioxide BUN Creatinine Glucose POC Glucose 180 H 163 H Lactic Acid Calcium Phosphorus Magnesium AST ALT Lactate Dehydrogenase CK-MB (CK-2) C-Reactive Protein NT-Pro-B Natriuret Pep Total Protein Albumin Arterial Blood Glucose Urine WBC (Auto) Urine Creatinine 01/03/20 01/03/20 01/03/20 06:50 07:25 07:45 WBC 12.1 H RBC 3.35 L Hgb 9.0 L Hct 28.9 L MCHC 31 L RDW 16.6 H MCV MCH 27 L Lymph % (Auto) 13.0 L Ida % (Auto) 8.6 H Ida # Eos # Lymph # (Auto) Ida # (Auto) 1.0 H Eos # (Auto) Seg Neutrophils % 75.9 H Seg Neuts % (Manual) Baso # (Auto) Lymphocytes % (Manual) Monocytes % (Manual) Eosinophils % (Manual) Basophils % (Manual) Seg Neutrophils # 9.2 H Seg Neutrophils # Man Lymphocytes # (Manual) Monocytes # (Manual) Eosinophils # (Manual) Nucleated RBC % Basophils # (Manual) PT INR APTT Heparin Anti-Xa Level 0.29 L ABG pH POC ABG pO2 ABG pO2 ABG HCO3 ABG O2 Saturation ABG Base Excess POC ABG pCO2 ABG Hemoglobin ABG Oxyhemoglobin ABG Glucose Oxyhemoglobin Sodium Potassium 3.3 L D Chloride Carbon Dioxide 35 H D BUN 23 H Creatinine 0.6 L Glucose 149 H POC Glucose Lactic Acid Calcium Phosphorus Magnesium AST ALT 88 H Lactate Dehydrogenase CK-MB (CK-2) C-Reactive Protein NT-Pro-B Natriuret Pep Total Protein 6.2 L Albumin 2.9 L Arterial Blood Glucose Urine WBC (Auto) Urine Creatinine 01/03/20 01/03/20 01/03/20 12:05 17:42 18:30 WBC RBC Hgb Hct MCHC RDW MCV MCH Lymph % (Auto) Ida % (Auto) Ida # Eos # Lymph # (Auto) Ida # (Auto) Eos # (Auto) Seg Neutrophils % Seg Neuts % (Manual) Baso # (Auto) Lymphocytes % (Manual) Monocytes % (Manual) Eosinophils % (Manual) Basophils % (Manual) Seg Neutrophils # Seg Neutrophils # Man Lymphocytes # (Manual) Monocytes # (Manual) Eosinophils # (Manual) Nucleated RBC % Basophils # (Manual) PT INR APTT Heparin Anti-Xa Level ABG pH POC ABG pO2 ABG pO2 70.7 L ABG HCO3 36.1 H ABG O2 Saturation 94.4 L ABG Base Excess 10.0 H POC ABG pCO2 ABG Hemoglobin 9.7 L ABG Oxyhemoglobin ABG Glucose Oxyhemoglobin 91.8 L Sodium Potassium Chloride Carbon Dioxide BUN Creatinine Glucose POC Glucose 128 H 132 H Lactic Acid Calcium Phosphorus Magnesium AST ALT Lactate Dehydrogenase CK-MB (CK-2) C-Reactive Protein NT-Pro-B Natriuret Pep Total Protein Albumin Arterial Blood Glucose Urine WBC (Auto) Urine Creatinine 01/04/20 01/04/20 01/04/20 00:10 04:26 05:23 WBC RBC Hgb Hct MCHC RDW MCV MCH Lymph % (Auto) Ida % (Auto) Ida # Eos # Lymph # (Auto) Ida # (Auto) Eos # (Auto) Seg Neutrophils % Seg Neuts % (Manual) Baso # (Auto) Lymphocytes % (Manual) Monocytes % (Manual) Eosinophils % (Manual) Basophils % (Manual) Seg Neutrophils # Seg Neutrophils # Man Lymphocytes # (Manual) Monocytes # (Manual) Eosinophils # (Manual) Nucleated RBC % Basophils # (Manual) PT INR APTT Heparin Anti-Xa Level 0.16 L ABG pH POC ABG pO2 ABG pO2 ABG HCO3 ABG O2 Saturation ABG Base Excess POC ABG pCO2 ABG Hemoglobin ABG Oxyhemoglobin ABG Glucose Oxyhemoglobin Sodium Potassium Chloride Carbon Dioxide BUN Creatinine Glucose POC Glucose 121 H 119 H Lactic Acid Calcium Phosphorus Magnesium AST ALT Lactate Dehydrogenase CK-MB (CK-2) C-Reactive Protein NT-Pro-B Natriuret Pep Total Protein Albumin Arterial Blood Glucose Urine WBC (Auto) Urine Creatinine 01/04/20 01/04/20 01/04/20 09:50 09:50 12:18 WBC 15.4 H RBC 3.30 L Hgb 8.7 L Hct 28.2 L MCHC 31 L RDW 17.0 H MCV MCH 26 L Lymph % (Auto) Ida % (Auto) 7.6 H Ida # Eos # Lymph # (Auto) Ida # (Auto) 1.2 H Eos # (Auto) Seg Neutrophils % 75.4 H Seg Neuts % (Manual) Baso # (Auto) Lymphocytes % (Manual) Monocytes % (Manual) Eosinophils % (Manual) Basophils % (Manual) Seg Neutrophils # 11.6 H Seg Neutrophils # Man Lymphocytes # (Manual) Monocytes # (Manual) Eosinophils # (Manual) Nucleated RBC % Basophils # (Manual) PT INR APTT Heparin Anti-Xa Level ABG pH POC ABG pO2 ABG pO2 ABG HCO3 ABG O2 Saturation ABG Base Excess POC ABG pCO2 ABG Hemoglobin ABG Oxyhemoglobin ABG Glucose Oxyhemoglobin Sodium 148 H Potassium 3.5 L Chloride Carbon Dioxide 32 H BUN Creatinine 0.6 L Glucose 114 H POC Glucose 111 H Lactic Acid Calcium Phosphorus Magnesium AST ALT 59 H Lactate Dehydrogenase CK-MB (CK-2) C-Reactive Protein NT-Pro-B Natriuret Pep Total Protein Albumin 2.6 L Arterial Blood Glucose Urine WBC (Auto) Urine Creatinine 01/05/20 01/05/20 01/05/20 04:05 04:05 05:19 WBC 11.7 H RBC 3.50 L Hgb 9.3 L Hct 29.9 L MCHC 31 L RDW 16.6 H MCV MCH 27 L Lymph % (Auto) 13.1 L Ida % (Auto) 9.7 H Ida # Eos # Lymph # (Auto) Ida # (Auto) 1.1 H Eos # (Auto) Seg Neutrophils % 74.0 H Seg Neuts % (Manual) Baso # (Auto) Lymphocytes % (Manual) Monocytes % (Manual) Eosinophils % (Manual) Basophils % (Manual) Seg Neutrophils # 8.6 H Seg Neutrophils # Man Lymphocytes # (Manual) Monocytes # (Manual) Eosinophils # (Manual) Nucleated RBC % Basophils # (Manual) PT INR APTT Heparin Anti-Xa Level ABG pH POC ABG pO2 ABG pO2 ABG HCO3 ABG O2 Saturation ABG Base Excess POC ABG pCO2 ABG Hemoglobin ABG Oxyhemoglobin ABG Glucose Oxyhemoglobin Sodium 151 H Potassium Chloride Carbon Dioxide 34 H BUN Creatinine 0.7 L Glucose POC Glucose 112 H Lactic Acid Calcium Phosphorus Magnesium AST ALT 59 H Lactate Dehydrogenase CK-MB (CK-2) C-Reactive Protein NT-Pro-B Natriuret Pep Total Protein 5.8 L Albumin 2.6 L Arterial Blood Glucose Urine WBC (Auto) Urine Creatinine 01/05/20 01/06/20 01/06/20 16:04 00:23 04:44 WBC RBC 3.36 L Hgb 8.9 L Hct 28.7 L MCHC 31 L RDW 16.9 H MCV MCH 26 L Lymph % (Auto) Ida % (Auto) 9.4 H Ida # Eos # Lymph # (Auto) Ida # (Auto) Eos # (Auto) Seg Neutrophils % Seg Neuts % (Manual) Baso # (Auto) Lymphocytes % (Manual) Monocytes % (Manual) Eosinophils % (Manual) Basophils % (Manual) Seg Neutrophils # Seg Neutrophils # Man Lymphocytes # (Manual) Monocytes # (Manual) Eosinophils # (Manual) Nucleated RBC % Basophils # (Manual) PT INR APTT Heparin Anti-Xa Level ABG pH POC ABG pO2 ABG pO2 ABG HCO3 ABG O2 Saturation ABG Base Excess POC ABG pCO2 ABG Hemoglobin ABG Oxyhemoglobin ABG Glucose Oxyhemoglobin Sodium 151 H Potassium 3.2 L Chloride Carbon Dioxide 34 H BUN Creatinine 0.6 L Glucose POC Glucose 107 H Lactic Acid Calcium Phosphorus Magnesium AST ALT Lactate Dehydrogenase CK-MB (CK-2) C-Reactive Protein NT-Pro-B Natriuret Pep Total Protein Albumin Arterial Blood Glucose Urine WBC (Auto) Urine Creatinine 01/06/20 01/06/20 01/06/20 04:44 05:33 12:04 WBC RBC Hgb Hct MCHC RDW MCV MCH Lymph % (Auto) Ida % (Auto) Ida # Eos # Lymph # (Auto) Ida # (Auto) Eos # (Auto) Seg Neutrophils % Seg Neuts % (Manual) Baso # (Auto) Lymphocytes % (Manual) Monocytes % (Manual) Eosinophils % (Manual) Basophils % (Manual) Seg Neutrophils # Seg Neutrophils # Man Lymphocytes # (Manual) Monocytes # (Manual) Eosinophils # (Manual) Nucleated RBC % Basophils # (Manual) PT INR APTT Heparin Anti-Xa Level ABG pH POC ABG pO2 ABG pO2 ABG HCO3 ABG O2 Saturation ABG Base Excess POC ABG pCO2 ABG Hemoglobin ABG Oxyhemoglobin ABG Glucose Oxyhemoglobin Sodium 151 H Potassium 3.4 L Chloride Carbon Dioxide 33 H BUN Creatinine 0.6 L Glucose 118 H POC Glucose 118 H 123 H Lactic Acid Calcium Phosphorus Magnesium AST ALT Lactate Dehydrogenase CK-MB (CK-2) C-Reactive Protein NT-Pro-B Natriuret Pep Total Protein 6.2 L Albumin 2.6 L Arterial Blood Glucose Urine WBC (Auto) Urine Creatinine 01/06/20 01/07/20 01/07/20 17:54 00:06 04:10 WBC RBC 3.42 L Hgb 8.9 L Hct 29.0 L MCHC 31 L RDW 17.1 H MCV MCH 26 L Lymph % (Auto) Ida % (Auto) 8.4 H Ida # Eos # Lymph # (Auto) Ida # (Auto) Eos # (Auto) Seg Neutrophils % Seg Neuts % (Manual) Baso # (Auto) Lymphocytes % (Manual) Monocytes % (Manual) Eosinophils % (Manual) Basophils % (Manual) Seg Neutrophils # Seg Neutrophils # Man Lymphocytes # (Manual) Monocytes # (Manual) Eosinophils # (Manual) Nucleated RBC % Basophils # (Manual) PT INR APTT Heparin Anti-Xa Level ABG pH POC ABG pO2 ABG pO2 ABG HCO3 ABG O2 Saturation ABG Base Excess POC ABG pCO2 ABG Hemoglobin ABG Oxyhemoglobin ABG Glucose Oxyhemoglobin Sodium Potassium Chloride Carbon Dioxide BUN Creatinine Glucose POC Glucose 112 H 126 H Lactic Acid Calcium Phosphorus Magnesium AST ALT Lactate Dehydrogenase CK-MB (CK-2) C-Reactive Protein NT-Pro-B Natriuret Pep Total Protein Albumin Arterial Blood Glucose Urine WBC (Auto) Urine Creatinine 01/07/20 01/07/20 01/07/20 04:10 05:59 12:27 WBC RBC Hgb Hct MCHC RDW MCV MCH Lymph % (Auto) Ida % (Auto) Ida # Eos # Lymph # (Auto) Ida # (Auto) Eos # (Auto) Seg Neutrophils % Seg Neuts % (Manual) Baso # (Auto) Lymphocytes % (Manual) Monocytes % (Manual) Eosinophils % (Manual) Basophils % (Manual) Seg Neutrophils # Seg Neutrophils # Man Lymphocytes # (Manual) Monocytes # (Manual) Eosinophils # (Manual) Nucleated RBC % Basophils # (Manual) PT INR APTT Heparin Anti-Xa Level ABG pH POC ABG pO2 ABG pO2 ABG HCO3 ABG O2 Saturation ABG Base Excess POC ABG pCO2 ABG Hemoglobin ABG Oxyhemoglobin ABG Glucose Oxyhemoglobin Sodium 153 H Potassium 3.5 L Chloride Carbon Dioxide 34 H BUN Creatinine 0.6 L Glucose 121 H POC Glucose 121 H 126 H Lactic Acid Calcium Phosphorus Magnesium AST ALT Lactate Dehydrogenase CK-MB (CK-2) C-Reactive Protein NT-Pro-B Natriuret Pep Total Protein 5.9 L Albumin 2.4 L Arterial Blood Glucose Urine WBC (Auto) Urine Creatinine 01/07/20 01/08/20 01/08/20 18:12 00:03 05:41 WBC RBC Hgb Hct MCHC RDW MCV MCH Lymph % (Auto) Ida % (Auto) Ida # Eos # Lymph # (Auto) Ida # (Auto) Eos # (Auto) Seg Neutrophils % Seg Neuts % (Manual) Baso # (Auto) Lymphocytes % (Manual) Monocytes % (Manual) Eosinophils % (Manual) Basophils % (Manual) Seg Neutrophils # Seg Neutrophils # Man Lymphocytes # (Manual) Monocytes # (Manual) Eosinophils # (Manual) Nucleated RBC % Basophils # (Manual) PT INR APTT Heparin Anti-Xa Level ABG pH POC ABG pO2 ABG pO2 ABG HCO3 ABG O2 Saturation ABG Base Excess POC ABG pCO2 ABG Hemoglobin ABG Oxyhemoglobin ABG Glucose Oxyhemoglobin Sodium Potassium Chloride Carbon Dioxide BUN Creatinine Glucose POC Glucose 124 H 130 H 138 H Lactic Acid Calcium Phosphorus Magnesium AST ALT Lactate Dehydrogenase CK-MB (CK-2) C-Reactive Protein NT-Pro-B Natriuret Pep Total Protein Albumin Arterial Blood Glucose Urine WBC (Auto) Urine Creatinine 01/08/20 01/08/20 01/08/20 09:28 11:42 18:21 WBC RBC Hgb Hct MCHC RDW MCV MCH Lymph % (Auto) Ida % (Auto) Ida # Eos # Lymph # (Auto) Ida # (Auto) Eos # (Auto) Seg Neutrophils % Seg Neuts % (Manual) Baso # (Auto) Lymphocytes % (Manual) Monocytes % (Manual) Eosinophils % (Manual) Basophils % (Manual) Seg Neutrophils # Seg Neutrophils # Man Lymphocytes # (Manual) Monocytes # (Manual) Eosinophils # (Manual) Nucleated RBC % Basophils # (Manual) PT INR APTT Heparin Anti-Xa Level ABG pH POC ABG pO2 ABG pO2 ABG HCO3 ABG O2 Saturation ABG Base Excess POC ABG pCO2 ABG Hemoglobin ABG Oxyhemoglobin ABG Glucose Oxyhemoglobin Sodium Potassium Chloride Carbon Dioxide BUN Creatinine Glucose POC Glucose 181 H 150 H 129 H Lactic Acid Calcium Phosphorus Magnesium AST ALT Lactate Dehydrogenase CK-MB (CK-2) C-Reactive Protein NT-Pro-B Natriuret Pep Total Protein Albumin Arterial Blood Glucose Urine WBC (Auto) Urine Creatinine 01/08/20 01/08/20 01/09/20 19:25 23:55 04:11 WBC RBC 3.43 L Hgb 8.9 L Hct 28.7 L MCHC 31 L RDW 17.6 H MCV MCH 26 L Lymph % (Auto) Ida % (Auto) 8.6 H Ida # Eos # Lymph # (Auto) Ida # (Auto) Eos # (Auto) Seg Neutrophils % Seg Neuts % (Manual) Baso # (Auto) Lymphocytes % (Manual) Monocytes % (Manual) Eosinophils % (Manual) Basophils % (Manual) Seg Neutrophils # Seg Neutrophils # Man Lymphocytes # (Manual) Monocytes # (Manual) Eosinophils # (Manual) Nucleated RBC % Basophils # (Manual) PT INR APTT Heparin Anti-Xa Level ABG pH POC ABG pO2 ABG pO2 ABG HCO3 ABG O2 Saturation ABG Base Excess POC ABG pCO2 ABG Hemoglobin ABG Oxyhemoglobin ABG Glucose Oxyhemoglobin Sodium Potassium Chloride Carbon Dioxide BUN Creatinine 0.7 L Glucose 117 H POC Glucose 132 H Lactic Acid Calcium Phosphorus Magnesium AST ALT Lactate Dehydrogenase CK-MB (CK-2) C-Reactive Protein NT-Pro-B Natriuret Pep Total Protein Albumin Arterial Blood Glucose Urine WBC (Auto) Urine Creatinine 01/09/20 01/09/20 01/09/20 04:11 05:38 22:58 WBC RBC Hgb Hct MCHC RDW MCV MCH Lymph % (Auto) Ida % (Auto) Ida # Eos # Lymph # (Auto) Ida # (Auto) Eos # (Auto) Seg Neutrophils % Seg Neuts % (Manual) Baso # (Auto) Lymphocytes % (Manual) Monocytes % (Manual) Eosinophils % (Manual) Basophils % (Manual) Seg Neutrophils # Seg Neutrophils # Man Lymphocytes # (Manual) Monocytes # (Manual) Eosinophils # (Manual) Nucleated RBC % Basophils # (Manual) PT INR APTT Heparin Anti-Xa Level ABG pH POC ABG pO2 ABG pO2 ABG HCO3 ABG O2 Saturation ABG Base Excess POC ABG pCO2 ABG Hemoglobin ABG Oxyhemoglobin ABG Glucose Oxyhemoglobin Sodium 147 H Potassium 3.3 L D Chloride Carbon Dioxide 32 H BUN Creatinine 0.6 L Glucose 106 H POC Glucose 107 H 113 H Lactic Acid Calcium Phosphorus Magnesium AST ALT Lactate Dehydrogenase CK-MB (CK-2) C-Reactive Protein NT-Pro-B Natriuret Pep Total Protein Albumin Arterial Blood Glucose Urine WBC (Auto) Urine Creatinine 01/10/20 01/10/20 01/10/20 04:05 11:36 17:54 WBC RBC Hgb Hct MCHC RDW MCV MCH Lymph % (Auto) Ida % (Auto) Ida # Eos # Lymph # (Auto) Ida # (Auto) Eos # (Auto) Seg Neutrophils % Seg Neuts % (Manual) Baso # (Auto) Lymphocytes % (Manual) Monocytes % (Manual) Eosinophils % (Manual) Basophils % (Manual) Seg Neutrophils # Seg Neutrophils # Man Lymphocytes # (Manual) Monocytes # (Manual) Eosinophils # (Manual) Nucleated RBC % Basophils # (Manual) PT INR APTT Heparin Anti-Xa Level ABG pH POC ABG pO2 ABG pO2 ABG HCO3 ABG O2 Saturation ABG Base Excess POC ABG pCO2 ABG Hemoglobin ABG Oxyhemoglobin ABG Glucose Oxyhemoglobin Sodium Potassium Chloride Carbon Dioxide BUN Creatinine 0.7 L Glucose 110 H POC Glucose 129 H 117 H Lactic Acid Calcium Phosphorus Magnesium AST ALT Lactate Dehydrogenase CK-MB (CK-2) C-Reactive Protein NT-Pro-B Natriuret Pep Total Protein Albumin Arterial Blood Glucose Urine WBC (Auto) Urine Creatinine 01/10/20 01/11/20 01/11/20 23:52 03:19 12:09 WBC RBC Hgb Hct MCHC RDW MCV MCH Lymph % (Auto) Ida % (Auto) Ida # Eos # Lymph # (Auto) Ida # (Auto) Eos # (Auto) Seg Neutrophils % Seg Neuts % (Manual) Baso # (Auto) Lymphocytes % (Manual) Monocytes % (Manual) Eosinophils % (Manual) Basophils % (Manual) Seg Neutrophils # Seg Neutrophils # Man Lymphocytes # (Manual) Monocytes # (Manual) Eosinophils # (Manual) Nucleated RBC % Basophils # (Manual) PT INR APTT Heparin Anti-Xa Level ABG pH POC ABG pO2 ABG pO2 ABG HCO3 ABG O2 Saturation ABG Base Excess POC ABG pCO2 ABG Hemoglobin ABG Oxyhemoglobin ABG Glucose Oxyhemoglobin Sodium Potassium Chloride Carbon Dioxide BUN Creatinine Glucose POC Glucose 117 H 136 H 115 H Lactic Acid Calcium Phosphorus Magnesium AST ALT Lactate Dehydrogenase CK-MB (CK-2) C-Reactive Protein NT-Pro-B Natriuret Pep Total Protein Albumin Arterial Blood Glucose Urine WBC (Auto) Urine Creatinine 01/11/20 01/11/20 01/12/20 18:27 23:28 00:23 WBC RBC Hgb 9.8 L Hct 31.6 L MCHC 31 L RDW 17.8 H MCV 83 L MCH 26 L Lymph % (Auto) Ida % (Auto) 8.0 H Ida # Eos # Lymph # (Auto) Ida # (Auto) Eos # (Auto) Seg Neutrophils % Seg Neuts % (Manual) Baso # (Auto) Lymphocytes % (Manual) Monocytes % (Manual) Eosinophils % (Manual) Basophils % (Manual) Seg Neutrophils # Seg Neutrophils # Man Lymphocytes # (Manual) Monocytes # (Manual) Eosinophils # (Manual) Nucleated RBC % Basophils # (Manual) PT INR APTT Heparin Anti-Xa Level ABG pH POC ABG pO2 ABG pO2 ABG HCO3 ABG O2 Saturation ABG Base Excess POC ABG pCO2 ABG Hemoglobin ABG Oxyhemoglobin ABG Glucose Oxyhemoglobin Sodium Potassium Chloride Carbon Dioxide BUN Creatinine Glucose POC Glucose 118 H 122 H Lactic Acid Calcium Phosphorus Magnesium AST ALT Lactate Dehydrogenase CK-MB (CK-2) C-Reactive Protein NT-Pro-B Natriuret Pep Total Protein Albumin Arterial Blood Glucose Urine WBC (Auto) Urine Creatinine 01/12/20 01/12/20 01/12/20 00:23 04:18 04:18 WBC RBC Hgb 9.6 L Hct 30.9 L MCHC 31 L RDW 17.3 H MCV 81 L MCH 25 L Lymph % (Auto) Ida % (Auto) Ida # Eos # Lymph # (Auto) Ida # (Auto) Eos # (Auto) Seg Neutrophils % Seg Neuts % (Manual) Baso # (Auto) Lymphocytes % (Manual) Monocytes % (Manual) Eosinophils % (Manual) Basophils % (Manual) Seg Neutrophils # Seg Neutrophils # Man Lymphocytes # (Manual) Monocytes # (Manual) Eosinophils # (Manual) Nucleated RBC % Basophils # (Manual) PT INR APTT Heparin Anti-Xa Level ABG pH POC ABG pO2 ABG pO2 ABG HCO3 ABG O2 Saturation ABG Base Excess POC ABG pCO2 ABG Hemoglobin ABG Oxyhemoglobin ABG Glucose Oxyhemoglobin Sodium Potassium Chloride Carbon Dioxide BUN Creatinine 0.7 L 0.7 L Glucose 111 H 108 H POC Glucose Lactic Acid Calcium Phosphorus Magnesium AST ALT Lactate Dehydrogenase CK-MB (CK-2) C-Reactive Protein NT-Pro-B Natriuret Pep Total Protein Albumin 2.6 L Arterial Blood Glucose Urine WBC (Auto) Urine Creatinine 01/12/20 01/12/20 01/12/20 06:03 12:27 13:58 WBC RBC Hgb Hct MCHC RDW MCV MCH Lymph % (Auto) Ida % (Auto) Ida # Eos # Lymph # (Auto) Ida # (Auto) Eos # (Auto) Seg Neutrophils % Seg Neuts % (Manual) Baso # (Auto) Lymphocytes % (Manual) Monocytes % (Manual) Eosinophils % (Manual) Basophils % (Manual) Seg Neutrophils # Seg Neutrophils # Man Lymphocytes # (Manual) Monocytes # (Manual) Eosinophils # (Manual) Nucleated RBC % Basophils # (Manual) PT INR APTT Heparin Anti-Xa Level ABG pH 7.453 H POC ABG pO2 76.6 L ABG pO2 ABG HCO3 ABG O2 Saturation ABG Base Excess POC ABG pCO2 ABG Hemoglobin 10.3 L ABG Oxyhemoglobin ABG Glucose 99 H Oxyhemoglobin Sodium Potassium Chloride Carbon Dioxide BUN Creatinine Glucose POC Glucose 128 H 121 H Lactic Acid Calcium Phosphorus Magnesium AST ALT Lactate Dehydrogenase CK-MB (CK-2) C-Reactive Protein NT-Pro-B Natriuret Pep Total Protein Albumin Arterial Blood Glucose 99 H Urine WBC (Auto) Urine Creatinine 01/12/20 01/13/20 01/13/20 18:24 12:01 17:46 WBC RBC Hgb Hct MCHC RDW MCV MCH Lymph % (Auto) Ida % (Auto) Ida # Eos # Lymph # (Auto) Ida # (Auto) Eos # (Auto) Seg Neutrophils % Seg Neuts % (Manual) Baso # (Auto) Lymphocytes % (Manual) Monocytes % (Manual) Eosinophils % (Manual) Basophils % (Manual) Seg Neutrophils # Seg Neutrophils # Man Lymphocytes # (Manual) Monocytes # (Manual) Eosinophils # (Manual) Nucleated RBC % Basophils # (Manual) PT INR APTT Heparin Anti-Xa Level ABG pH POC ABG pO2 ABG pO2 ABG HCO3 ABG O2 Saturation ABG Base Excess POC ABG pCO2 ABG Hemoglobin ABG Oxyhemoglobin ABG Glucose Oxyhemoglobin Sodium Potassium Chloride Carbon Dioxide BUN Creatinine Glucose POC Glucose 119 H 107 H 124 H Lactic Acid Calcium Phosphorus Magnesium AST ALT Lactate Dehydrogenase CK-MB (CK-2) C-Reactive Protein NT-Pro-B Natriuret Pep Total Protein Albumin Arterial Blood Glucose Urine WBC (Auto) Urine Creatinine 01/13/20 01/14/20 01/14/20 20:40 00:10 05:33 WBC RBC Hgb Hct MCHC RDW MCV MCH Lymph % (Auto) Ida % (Auto) Ida # Eos # Lymph # (Auto) Ida # (Auto) Eos # (Auto) Seg Neutrophils % Seg Neuts % (Manual) Baso # (Auto) Lymphocytes % (Manual) Monocytes % (Manual) Eosinophils % (Manual) Basophils % (Manual) Seg Neutrophils # Seg Neutrophils # Man Lymphocytes # (Manual) Monocytes # (Manual) Eosinophils # (Manual) Nucleated RBC % Basophils # (Manual) PT INR APTT Heparin Anti-Xa Level ABG pH POC ABG pO2 ABG pO2 65.3 L ABG HCO3 31.8 H ABG O2 Saturation 93.5 L ABG Base Excess 6.7 H POC ABG pCO2 ABG Hemoglobin 13.3 L ABG Oxyhemoglobin ABG Glucose Oxyhemoglobin 90.9 L Sodium Potassium Chloride Carbon Dioxide BUN Creatinine Glucose POC Glucose 111 H 111 H Lactic Acid Calcium Phosphorus Magnesium AST ALT Lactate Dehydrogenase CK-MB (CK-2) C-Reactive Protein NT-Pro-B Natriuret Pep Total Protein Albumin Arterial Blood Glucose Urine WBC (Auto) Urine Creatinine 01/14/20 01/14/20 01/14/20 12:10 16:14 16:14 WBC RBC Hgb 10.6 L Hct 34.2 L MCHC 31 L RDW 18.3 H MCV 83 L MCH 26 L Lymph % (Auto) Ida % (Auto) 7.4 H Ida # Eos # Lymph # (Auto) Ida # (Auto) Eos # (Auto) Seg Neutrophils % 71.9 H Seg Neuts % (Manual) Baso # (Auto) Lymphocytes % (Manual) Monocytes % (Manual) Eosinophils % (Manual) Basophils % (Manual) Seg Neutrophils # Seg Neutrophils # Man Lymphocytes # (Manual) Monocytes # (Manual) Eosinophils # (Manual) Nucleated RBC % Basophils # (Manual) PT INR APTT Heparin Anti-Xa Level ABG pH POC ABG pO2 ABG pO2 ABG HCO3 ABG O2 Saturation ABG Base Excess POC ABG pCO2 ABG Hemoglobin ABG Oxyhemoglobin ABG Glucose Oxyhemoglobin Sodium Potassium Chloride Carbon Dioxide 31 H BUN Creatinine 0.6 L Glucose 131 H POC Glucose 139 H Lactic Acid Calcium Phosphorus Magnesium AST ALT Lactate Dehydrogenase CK-MB (CK-2) C-Reactive Protein NT-Pro-B Natriuret Pep Total Protein Albumin Arterial Blood Glucose Urine WBC (Auto) Urine Creatinine 01/14/20 01/15/20 01/15/20 18:05 00:52 05:35 WBC RBC Hgb Hct MCHC RDW MCV MCH Lymph % (Auto) Ida % (Auto) Ida # Eos # Lymph # (Auto) Ida # (Auto) Eos # (Auto) Seg Neutrophils % Seg Neuts % (Manual) Baso # (Auto) Lymphocytes % (Manual) Monocytes % (Manual) Eosinophils % (Manual) Basophils % (Manual) Seg Neutrophils # Seg Neutrophils # Man Lymphocytes # (Manual) Monocytes # (Manual) Eosinophils # (Manual) Nucleated RBC % Basophils # (Manual) PT INR APTT Heparin Anti-Xa Level ABG pH POC ABG pO2 ABG pO2 ABG HCO3 ABG O2 Saturation ABG Base Excess POC ABG pCO2 ABG Hemoglobin ABG Oxyhemoglobin ABG Glucose Oxyhemoglobin Sodium Potassium Chloride Carbon Dioxide BUN Creatinine Glucose POC Glucose 147 H 140 H 159 H Lactic Acid Calcium Phosphorus Magnesium AST ALT Lactate Dehydrogenase CK-MB (CK-2) C-Reactive Protein NT-Pro-B Natriuret Pep Total Protein Albumin Arterial Blood Glucose Urine WBC (Auto) Urine Creatinine 01/15/20 01/15/20 01/16/20 12:52 17:43 00:32 WBC RBC Hgb Hct MCHC RDW MCV MCH Lymph % (Auto) Ida % (Auto) Ida # Eos # Lymph # (Auto) Ida # (Auto) Eos # (Auto) Seg Neutrophils % Seg Neuts % (Manual) Baso # (Auto) Lymphocytes % (Manual) Monocytes % (Manual) Eosinophils % (Manual) Basophils % (Manual) Seg Neutrophils # Seg Neutrophils # Man Lymphocytes # (Manual) Monocytes # (Manual) Eosinophils # (Manual) Nucleated RBC % Basophils # (Manual) PT INR APTT Heparin Anti-Xa Level ABG pH POC ABG pO2 ABG pO2 ABG HCO3 ABG O2 Saturation ABG Base Excess POC ABG pCO2 ABG Hemoglobin ABG Oxyhemoglobin ABG Glucose Oxyhemoglobin Sodium Potassium Chloride Carbon Dioxide BUN Creatinine Glucose POC Glucose 164 H 167 H 153 H Lactic Acid Calcium Phosphorus Magnesium AST ALT Lactate Dehydrogenase CK-MB (CK-2) C-Reactive Protein NT-Pro-B Natriuret Pep Total Protein Albumin Arterial Blood Glucose Urine WBC (Auto) Urine Creatinine 01/16/20 01/16/20 01/17/20 05:46 11:48 06:38 WBC RBC Hgb Hct MCHC RDW MCV MCH Lymph % (Auto) Ida % (Auto) Ida # Eos # Lymph # (Auto) Ida # (Auto) Eos # (Auto) Seg Neutrophils % Seg Neuts % (Manual) Baso # (Auto) Lymphocytes % (Manual) Monocytes % (Manual) Eosinophils % (Manual) Basophils % (Manual) Seg Neutrophils # Seg Neutrophils # Man Lymphocytes # (Manual) Monocytes # (Manual) Eosinophils # (Manual) Nucleated RBC % Basophils # (Manual) PT INR APTT Heparin Anti-Xa Level ABG pH POC ABG pO2 ABG pO2 ABG HCO3 ABG O2 Saturation ABG Base Excess POC ABG pCO2 ABG Hemoglobin ABG Oxyhemoglobin ABG Glucose Oxyhemoglobin Sodium Potassium Chloride Carbon Dioxide BUN Creatinine Glucose POC Glucose 163 H 155 H 116 H Lactic Acid Calcium Phosphorus Magnesium AST ALT Lactate Dehydrogenase CK-MB (CK-2) C-Reactive Protein NT-Pro-B Natriuret Pep Total Protein Albumin Arterial Blood Glucose Urine WBC (Auto) Urine Creatinine 01/17/20 01/17/20 01/18/20 11:36 17:43 00:12 WBC RBC Hgb Hct MCHC RDW MCV MCH Lymph % (Auto) Ida % (Auto) Ida # Eos # Lymph # (Auto) Ida # (Auto) Eos # (Auto) Seg Neutrophils % Seg Neuts % (Manual) Baso # (Auto) Lymphocytes % (Manual) Monocytes % (Manual) Eosinophils % (Manual) Basophils % (Manual) Seg Neutrophils # Seg Neutrophils # Man Lymphocytes # (Manual) Monocytes # (Manual) Eosinophils # (Manual) Nucleated RBC % Basophils # (Manual) PT INR APTT Heparin Anti-Xa Level ABG pH POC ABG pO2 ABG pO2 ABG HCO3 ABG O2 Saturation ABG Base Excess POC ABG pCO2 ABG Hemoglobin ABG Oxyhemoglobin ABG Glucose Oxyhemoglobin Sodium Potassium Chloride Carbon Dioxide BUN Creatinine Glucose POC Glucose 110 H 134 H 108 H Lactic Acid Calcium Phosphorus Magnesium AST ALT Lactate Dehydrogenase CK-MB (CK-2) C-Reactive Protein NT-Pro-B Natriuret Pep Total Protein Albumin Arterial Blood Glucose Urine WBC (Auto) Urine Creatinine 01/18/20 01/18/20 01/18/20 05:37 06:46 06:46 WBC RBC Hgb 10.1 L Hct 32.2 L MCHC 31 L RDW 18.1 H MCV 81 L MCH 25 L Lymph % (Auto) Ida % (Auto) Ida # Eos # Lymph # (Auto) Ida # (Auto) Eos # (Auto) Seg Neutrophils % 71.9 H Seg Neuts % (Manual) Baso # (Auto) Lymphocytes % (Manual) Monocytes % (Manual) Eosinophils % (Manual) Basophils % (Manual) Seg Neutrophils # Seg Neutrophils # Man Lymphocytes # (Manual) Monocytes # (Manual) Eosinophils # (Manual) Nucleated RBC % Basophils # (Manual) PT INR APTT Heparin Anti-Xa Level ABG pH POC ABG pO2 ABG pO2 ABG HCO3 ABG O2 Saturation ABG Base Excess POC ABG pCO2 ABG Hemoglobin ABG Oxyhemoglobin ABG Glucose Oxyhemoglobin Sodium Potassium Chloride Carbon Dioxide BUN Creatinine 0.7 L Glucose 155 H POC Glucose 168 H Lactic Acid Calcium Phosphorus Magnesium AST ALT Lactate Dehydrogenase CK-MB (CK-2) C-Reactive Protein NT-Pro-B Natriuret Pep Total Protein Albumin Arterial Blood Glucose Urine WBC (Auto) Urine Creatinine 01/18/20 01/18/20 01/18/20 12:05 17:14 23:28 WBC RBC Hgb Hct MCHC RDW MCV MCH Lymph % (Auto) Ida % (Auto) Ida # Eos # Lymph # (Auto) Ida # (Auto) Eos # (Auto) Seg Neutrophils % Seg Neuts % (Manual) Baso # (Auto) Lymphocytes % (Manual) Monocytes % (Manual) Eosinophils % (Manual) Basophils % (Manual) Seg Neutrophils # Seg Neutrophils # Man Lymphocytes # (Manual) Monocytes # (Manual) Eosinophils # (Manual) Nucleated RBC % Basophils # (Manual) PT INR APTT Heparin Anti-Xa Level ABG pH POC ABG pO2 ABG pO2 ABG HCO3 ABG O2 Saturation ABG Base Excess POC ABG pCO2 ABG Hemoglobin ABG Oxyhemoglobin ABG Glucose Oxyhemoglobin Sodium Potassium Chloride Carbon Dioxide BUN Creatinine Glucose POC Glucose 128 H 126 H 128 H Lactic Acid Calcium Phosphorus Magnesium AST ALT Lactate Dehydrogenase CK-MB (CK-2) C-Reactive Protein NT-Pro-B Natriuret Pep Total Protein Albumin Arterial Blood Glucose Urine WBC (Auto) Urine Creatinine 01/19/20 01/19/20 01/19/20 05:39 12:33 17:36 WBC RBC Hgb Hct MCHC RDW MCV MCH Lymph % (Auto) Ida % (Auto) Ida # Eos # Lymph # (Auto) Ida # (Auto) Eos # (Auto) Seg Neutrophils % Seg Neuts % (Manual) Baso # (Auto) Lymphocytes % (Manual) Monocytes % (Manual) Eosinophils % (Manual) Basophils % (Manual) Seg Neutrophils # Seg Neutrophils # Man Lymphocytes # (Manual) Monocytes # (Manual) Eosinophils # (Manual) Nucleated RBC % Basophils # (Manual) PT INR APTT Heparin Anti-Xa Level ABG pH POC ABG pO2 ABG pO2 ABG HCO3 ABG O2 Saturation ABG Base Excess POC ABG pCO2 ABG Hemoglobin ABG Oxyhemoglobin ABG Glucose Oxyhemoglobin Sodium Potassium Chloride Carbon Dioxide BUN Creatinine Glucose POC Glucose 164 H 171 H 152 H Lactic Acid Calcium Phosphorus Magnesium AST ALT Lactate Dehydrogenase CK-MB (CK-2) C-Reactive Protein NT-Pro-B Natriuret Pep Total Protein Albumin Arterial Blood Glucose Urine WBC (Auto) Urine Creatinine 01/20/20 01/20/20 01/20/20 00:12 05:20 05:35 WBC RBC Hgb 9.2 L Hct 29.4 L MCHC 31 L RDW 17.9 H MCV 81 L MCH 25 L Lymph % (Auto) Ida % (Auto) Ida # Eos # Lymph # (Auto) Ida # (Auto) Eos # (Auto) Seg Neutrophils % Seg Neuts % (Manual) Baso # (Auto) Lymphocytes % (Manual) Monocytes % (Manual) Eosinophils % (Manual) Basophils % (Manual) Seg Neutrophils # Seg Neutrophils # Man Lymphocytes # (Manual) Monocytes # (Manual) Eosinophils # (Manual) Nucleated RBC % Basophils # (Manual) PT INR APTT Heparin Anti-Xa Level ABG pH POC ABG pO2 ABG pO2 ABG HCO3 ABG O2 Saturation ABG Base Excess POC ABG pCO2 ABG Hemoglobin ABG Oxyhemoglobin ABG Glucose Oxyhemoglobin Sodium Potassium Chloride Carbon Dioxide BUN Creatinine Glucose POC Glucose 120 H 136 H Lactic Acid Calcium Phosphorus Magnesium AST ALT Lactate Dehydrogenase CK-MB (CK-2) C-Reactive Protein NT-Pro-B Natriuret Pep Total Protein Albumin Arterial Blood Glucose Urine WBC (Auto) Urine Creatinine 01/20/20 01/20/20 01/20/20 05:40 11:58 14:55 WBC RBC Hgb 9.0 L Hct 28.3 L MCHC RDW MCV MCH Lymph % (Auto) Ida % (Auto) Ida # Eos # Lymph # (Auto) Ida # (Auto) Eos # (Auto) Seg Neutrophils % Seg Neuts % (Manual) Baso # (Auto) Lymphocytes % (Manual) Monocytes % (Manual) Eosinophils % (Manual) Basophils % (Manual) Seg Neutrophils # Seg Neutrophils # Man Lymphocytes # (Manual) Monocytes # (Manual) Eosinophils # (Manual) Nucleated RBC % Basophils # (Manual) PT INR APTT Heparin Anti-Xa Level ABG pH POC ABG pO2 ABG pO2 ABG HCO3 ABG O2 Saturation ABG Base Excess POC ABG pCO2 ABG Hemoglobin ABG Oxyhemoglobin ABG Glucose Oxyhemoglobin Sodium Potassium Chloride Carbon Dioxide 32 H BUN 22 H Creatinine 0.7 L Glucose 128 H POC Glucose 152 H Lactic Acid Calcium Phosphorus Magnesium AST ALT Lactate Dehydrogenase CK-MB (CK-2) C-Reactive Protein NT-Pro-B Natriuret Pep Total Protein Albumin Arterial Blood Glucose Urine WBC (Auto) Urine Creatinine 01/20/20 01/20/20 01/20/20 14:55 18:14 21:35 WBC RBC Hgb Hct MCHC RDW MCV MCH Lymph % (Auto) Ida % (Auto) Ida # Eos # Lymph # (Auto) Ida # (Auto) Eos # (Auto) Seg Neutrophils % Seg Neuts % (Manual) Baso # (Auto) Lymphocytes % (Manual) Monocytes % (Manual) Eosinophils % (Manual) Basophils % (Manual) Seg Neutrophils # Seg Neutrophils # Man Lymphocytes # (Manual) Monocytes # (Manual) Eosinophils # (Manual) Nucleated RBC % Basophils # (Manual) PT 20.4 H INR 1.72 H APTT 40.6 H Heparin Anti-Xa Level > 2.00 H ABG pH POC ABG pO2 ABG pO2 ABG HCO3 ABG O2 Saturation ABG Base Excess POC ABG pCO2 ABG Hemoglobin ABG Oxyhemoglobin ABG Glucose Oxyhemoglobin Sodium Potassium Chloride Carbon Dioxide BUN Creatinine Glucose POC Glucose 150 H Lactic Acid Calcium Phosphorus Magnesium AST ALT Lactate Dehydrogenase CK-MB (CK-2) C-Reactive Protein NT-Pro-B Natriuret Pep Total Protein Albumin Arterial Blood Glucose Urine WBC (Auto) Urine Creatinine 01/21/20 01/21/20 01/21/20 00:30 05:47 05:59 WBC RBC Hgb Hct MCHC RDW MCV MCH Lymph % (Auto) Ida % (Auto) Ida # Eos # Lymph # (Auto) Ida # (Auto) Eos # (Auto) Seg Neutrophils % Seg Neuts % (Manual) Baso # (Auto) Lymphocytes % (Manual) Monocytes % (Manual) Eosinophils % (Manual) Basophils % (Manual) Seg Neutrophils # Seg Neutrophils # Man Lymphocytes # (Manual) Monocytes # (Manual) Eosinophils # (Manual) Nucleated RBC % Basophils # (Manual) PT INR APTT Heparin Anti-Xa Level 1.93 H ABG pH POC ABG pO2 ABG pO2 ABG HCO3 ABG O2 Saturation ABG Base Excess POC ABG pCO2 ABG Hemoglobin ABG Oxyhemoglobin ABG Glucose Oxyhemoglobin Sodium Potassium Chloride Carbon Dioxide BUN Creatinine Glucose POC Glucose 126 H 148 H Lactic Acid Calcium Phosphorus Magnesium AST ALT Lactate Dehydrogenase CK-MB (CK-2) C-Reactive Protein NT-Pro-B Natriuret Pep Total Protein Albumin Arterial Blood Glucose Urine WBC (Auto) Urine Creatinine 01/21/20 01/21/20 01/21/20 12:32 18:20 23:54 WBC RBC Hgb Hct MCHC RDW MCV MCH Lymph % (Auto) Ida % (Auto) Ida # Eos # Lymph # (Auto) Ida # (Auto) Eos # (Auto) Seg Neutrophils % Seg Neuts % (Manual) Baso # (Auto) Lymphocytes % (Manual) Monocytes % (Manual) Eosinophils % (Manual) Basophils % (Manual) Seg Neutrophils # Seg Neutrophils # Man Lymphocytes # (Manual) Monocytes # (Manual) Eosinophils # (Manual) Nucleated RBC % Basophils # (Manual) PT INR APTT Heparin Anti-Xa Level 1.28 H ABG pH POC ABG pO2 ABG pO2 ABG HCO3 ABG O2 Saturation ABG Base Excess POC ABG pCO2 ABG Hemoglobin ABG Oxyhemoglobin ABG Glucose Oxyhemoglobin Sodium Potassium Chloride Carbon Dioxide BUN Creatinine Glucose POC Glucose 112 H 146 H Lactic Acid Calcium Phosphorus Magnesium AST ALT Lactate Dehydrogenase CK-MB (CK-2) C-Reactive Protein NT-Pro-B Natriuret Pep Total Protein Albumin Arterial Blood Glucose Urine WBC (Auto) Urine Creatinine 01/22/20 01/22/20 01/22/20 04:45 04:45 05:48 WBC RBC Hgb 9.3 L Hct 29.0 L MCHC RDW MCV MCH Lymph % (Auto) Ida % (Auto) Ida # Eos # Lymph # (Auto) Ida # (Auto) Eos # (Auto) Seg Neutrophils % Seg Neuts % (Manual) Baso # (Auto) Lymphocytes % (Manual) Monocytes % (Manual) Eosinophils % (Manual) Basophils % (Manual) Seg Neutrophils # Seg Neutrophils # Man Lymphocytes # (Manual) Monocytes # (Manual) Eosinophils # (Manual) Nucleated RBC % Basophils # (Manual) PT INR APTT Heparin Anti-Xa Level 1.34 H ABG pH POC ABG pO2 ABG pO2 ABG HCO3 ABG O2 Saturation ABG Base Excess POC ABG pCO2 ABG Hemoglobin ABG Oxyhemoglobin ABG Glucose Oxyhemoglobin Sodium Potassium Chloride Carbon Dioxide BUN Creatinine Glucose POC Glucose 142 H Lactic Acid Calcium Phosphorus Magnesium AST ALT Lactate Dehydrogenase CK-MB (CK-2) C-Reactive Protein NT-Pro-B Natriuret Pep Total Protein Albumin Arterial Blood Glucose Urine WBC (Auto) Urine Creatinine 01/22/20 01/22/20 01/22/20 08:09 08:22 09:58 WBC RBC Hgb Hct MCHC RDW MCV MCH Lymph % (Auto) Ida % (Auto) Ida # Eos # Lymph # (Auto) Ida # (Auto) Eos # (Auto) Seg Neutrophils % Seg Neuts % (Manual) Baso # (Auto) Lymphocytes % (Manual) Monocytes % (Manual) Eosinophils % (Manual) Basophils % (Manual) Seg Neutrophils # Seg Neutrophils # Man Lymphocytes # (Manual) Monocytes # (Manual) Eosinophils # (Manual) Nucleated RBC % Basophils # (Manual) PT 16.9 H INR 1.34 H APTT Heparin Anti-Xa Level ABG pH POC ABG pO2 ABG pO2 ABG HCO3 ABG O2 Saturation ABG Base Excess POC ABG pCO2 ABG Hemoglobin ABG Oxyhemoglobin ABG Glucose Oxyhemoglobin Sodium Potassium Chloride 97.8 L Carbon Dioxide BUN 29 H Creatinine Glucose 128 H POC Glucose 131 H Lactic Acid Calcium Phosphorus Magnesium AST ALT Lactate Dehydrogenase CK-MB (CK-2) C-Reactive Protein NT-Pro-B Natriuret Pep Total Protein Albumin Arterial Blood Glucose Urine WBC (Auto) Urine Creatinine 01/22/20 01/22/20 01/22/20 12:44 16:13 18:18 WBC RBC Hgb Hct MCHC RDW MCV MCH Lymph % (Auto) Ida % (Auto) Ida # Eos # Lymph # (Auto) Ida # (Auto) Eos # (Auto) Seg Neutrophils % Seg Neuts % (Manual) Baso # (Auto) Lymphocytes % (Manual) Monocytes % (Manual) Eosinophils % (Manual) Basophils % (Manual) Seg Neutrophils # Seg Neutrophils # Man Lymphocytes # (Manual) Monocytes # (Manual) Eosinophils # (Manual) Nucleated RBC % Basophils # (Manual) PT INR APTT Heparin Anti-Xa Level ABG pH POC ABG pO2 ABG pO2 ABG HCO3 ABG O2 Saturation ABG Base Excess POC ABG pCO2 ABG Hemoglobin ABG Oxyhemoglobin ABG Glucose Oxyhemoglobin Sodium Potassium Chloride Carbon Dioxide BUN Creatinine Glucose POC Glucose 156 H 133 H 155 H Lactic Acid Calcium Phosphorus Magnesium AST ALT Lactate Dehydrogenase CK-MB (CK-2) C-Reactive Protein NT-Pro-B Natriuret Pep Total Protein Albumin Arterial Blood Glucose Urine WBC (Auto) Urine Creatinine 01/22/20 01/23/20 01/23/20 23:22 05:37 12:59 WBC RBC Hgb Hct MCHC RDW MCV MCH Lymph % (Auto) Ida % (Auto) Ida # Eos # Lymph # (Auto) Ida # (Auto) Eos # (Auto) Seg Neutrophils % Seg Neuts % (Manual) Baso # (Auto) Lymphocytes % (Manual) Monocytes % (Manual) Eosinophils % (Manual) Basophils % (Manual) Seg Neutrophils # Seg Neutrophils # Man Lymphocytes # (Manual) Monocytes # (Manual) Eosinophils # (Manual) Nucleated RBC % Basophils # (Manual) PT INR APTT Heparin Anti-Xa Level ABG pH POC ABG pO2 ABG pO2 ABG HCO3 ABG O2 Saturation ABG Base Excess POC ABG pCO2 ABG Hemoglobin ABG Oxyhemoglobin ABG Glucose Oxyhemoglobin Sodium Potassium Chloride Carbon Dioxide BUN Creatinine Glucose POC Glucose 148 H 163 H 175 H Lactic Acid Calcium Phosphorus Magnesium AST ALT Lactate Dehydrogenase CK-MB (CK-2) C-Reactive Protein NT-Pro-B Natriuret Pep Total Protein Albumin Arterial Blood Glucose Urine WBC (Auto) Urine Creatinine 01/23/20 01/23/20 01/24/20 17:28 23:56 04:30 WBC RBC 3.46 L Hgb 8.8 L Hct 27.8 L MCHC RDW 18.2 H MCV 81 L MCH 25 L Lymph % (Auto) Ida % (Auto) 7.8 H Ida # Eos # Lymph # (Auto) Ida # (Auto) Eos # (Auto) Seg Neutrophils % Seg Neuts % (Manual) Baso # (Auto) Lymphocytes % (Manual) Monocytes % (Manual) Eosinophils % (Manual) Basophils % (Manual) Seg Neutrophils # Seg Neutrophils # Man Lymphocytes # (Manual) Monocytes # (Manual) Eosinophils # (Manual) Nucleated RBC % Basophils # (Manual) PT INR APTT Heparin Anti-Xa Level ABG pH POC ABG pO2 ABG pO2 ABG HCO3 ABG O2 Saturation ABG Base Excess POC ABG pCO2 ABG Hemoglobin ABG Oxyhemoglobin ABG Glucose Oxyhemoglobin Sodium Potassium Chloride Carbon Dioxide BUN Creatinine Glucose POC Glucose 165 H 177 H Lactic Acid Calcium Phosphorus Magnesium AST ALT Lactate Dehydrogenase CK-MB (CK-2) C-Reactive Protein NT-Pro-B Natriuret Pep Total Protein Albumin Arterial Blood Glucose Urine WBC (Auto) Urine Creatinine 01/24/20 01/24/20 01/24/20 04:30 07:18 12:06 WBC RBC Hgb Hct MCHC RDW MCV MCH Lymph % (Auto) Ida % (Auto) Ida # Eos # Lymph # (Auto) Ida # (Auto) Eos # (Auto) Seg Neutrophils % Seg Neuts % (Manual) Baso # (Auto) Lymphocytes % (Manual) Monocytes % (Manual) Eosinophils % (Manual) Basophils % (Manual) Seg Neutrophils # Seg Neutrophils # Man Lymphocytes # (Manual) Monocytes # (Manual) Eosinophils # (Manual) Nucleated RBC % Basophils # (Manual) PT INR APTT Heparin Anti-Xa Level ABG pH POC ABG pO2 ABG pO2 ABG HCO3 ABG O2 Saturation ABG Base Excess POC ABG pCO2 ABG Hemoglobin ABG Oxyhemoglobin ABG Glucose Oxyhemoglobin Sodium Potassium Chloride 97.9 L Carbon Dioxide BUN 31 H Creatinine Glucose 146 H POC Glucose 151 H 133 H Lactic Acid Calcium Phosphorus Magnesium AST ALT Lactate Dehydrogenase CK-MB (CK-2) C-Reactive Protein NT-Pro-B Natriuret Pep Total Protein Albumin Arterial Blood Glucose Urine WBC (Auto) Urine Creatinine 01/24/20 01/25/20 01/25/20 17:36 00:08 04:25 WBC RBC 3.50 L Hgb 8.7 L Hct 27.9 L MCHC 31 L RDW 18.2 H MCV 80 L MCH 25 L Lymph % (Auto) Ida % (Auto) 8.5 H Ida # Eos # Lymph # (Auto) Ida # (Auto) Eos # (Auto) Seg Neutrophils % Seg Neuts % (Manual) Baso # (Auto) Lymphocytes % (Manual) Monocytes % (Manual) Eosinophils % (Manual) Basophils % (Manual) Seg Neutrophils # Seg Neutrophils # Man Lymphocytes # (Manual) Monocytes # (Manual) Eosinophils # (Manual) Nucleated RBC % Basophils # (Manual) PT INR APTT Heparin Anti-Xa Level ABG pH POC ABG pO2 ABG pO2 ABG HCO3 ABG O2 Saturation ABG Base Excess POC ABG pCO2 ABG Hemoglobin ABG Oxyhemoglobin ABG Glucose Oxyhemoglobin Sodium Potassium Chloride Carbon Dioxide BUN Creatinine Glucose POC Glucose 133 H 129 H Lactic Acid Calcium Phosphorus Magnesium AST ALT Lactate Dehydrogenase CK-MB (CK-2) C-Reactive Protein NT-Pro-B Natriuret Pep Total Protein Albumin Arterial Blood Glucose Urine WBC (Auto) Urine Creatinine 01/25/20 01/25/20 01/25/20 04:25 05:38 11:52 WBC RBC Hgb Hct MCHC RDW MCV MCH Lymph % (Auto) Ida % (Auto) Ida # Eos # Lymph # (Auto) Ida # (Auto) Eos # (Auto) Seg Neutrophils % Seg Neuts % (Manual) Baso # (Auto) Lymphocytes % (Manual) Monocytes % (Manual) Eosinophils % (Manual) Basophils % (Manual) Seg Neutrophils # Seg Neutrophils # Man Lymphocytes # (Manual) Monocytes # (Manual) Eosinophils # (Manual) Nucleated RBC % Basophils # (Manual) PT INR APTT Heparin Anti-Xa Level ABG pH POC ABG pO2 ABG pO2 ABG HCO3 ABG O2 Saturation ABG Base Excess POC ABG pCO2 ABG Hemoglobin ABG Oxyhemoglobin ABG Glucose Oxyhemoglobin Sodium Potassium Chloride Carbon Dioxide BUN 30 H Creatinine Glucose 134 H POC Glucose 129 H 134 H Lactic Acid Calcium Phosphorus Magnesium AST ALT Lactate Dehydrogenase CK-MB (CK-2) C-Reactive Protein NT-Pro-B Natriuret Pep Total Protein Albumin Arterial Blood Glucose Urine WBC (Auto) Urine Creatinine 01/25/20 01/25/20 01/26/20 17:13 21:02 00:59 WBC RBC Hgb Hct MCHC RDW MCV MCH Lymph % (Auto) Ida % (Auto) Ida # Eos # Lymph # (Auto) Ida # (Auto) Eos # (Auto) Seg Neutrophils % Seg Neuts % (Manual) Baso # (Auto) Lymphocytes % (Manual) Monocytes % (Manual) Eosinophils % (Manual) Basophils % (Manual) Seg Neutrophils # Seg Neutrophils # Man Lymphocytes # (Manual) Monocytes # (Manual) Eosinophils # (Manual) Nucleated RBC % Basophils # (Manual) PT INR APTT Heparin Anti-Xa Level ABG pH POC ABG pO2 ABG pO2 57.5 L ABG HCO3 31.7 H ABG O2 Saturation 90.3 L ABG Base Excess 6.6 H POC ABG pCO2 ABG Hemoglobin 13.0 L ABG Oxyhemoglobin ABG Glucose Oxyhemoglobin 87.5 L Sodium Potassium Chloride Carbon Dioxide BUN Creatinine Glucose POC Glucose 124 H 196 H Lactic Acid Calcium Phosphorus Magnesium AST ALT Lactate Dehydrogenase CK-MB (CK-2) C-Reactive Protein NT-Pro-B Natriuret Pep Total Protein Albumin Arterial Blood Glucose Urine WBC (Auto) Urine Creatinine 01/26/20 01/26/20 01/26/20 03:20 05:46 12:46 WBC RBC Hgb 9.2 L Hct 29.4 L MCHC RDW MCV MCH Lymph % (Auto) Ida % (Auto) Ida # Eos # Lymph # (Auto) Ida # (Auto) Eos # (Auto) Seg Neutrophils % Seg Neuts % (Manual) Baso # (Auto) Lymphocytes % (Manual) Monocytes % (Manual) Eosinophils % (Manual) Basophils % (Manual) Seg Neutrophils # Seg Neutrophils # Man Lymphocytes # (Manual) Monocytes # (Manual) Eosinophils # (Manual) Nucleated RBC % Basophils # (Manual) PT INR APTT Heparin Anti-Xa Level ABG pH POC ABG pO2 ABG pO2 ABG HCO3 ABG O2 Saturation ABG Base Excess POC ABG pCO2 ABG Hemoglobin ABG Oxyhemoglobin ABG Glucose Oxyhemoglobin Sodium Potassium Chloride Carbon Dioxide BUN Creatinine Glucose POC Glucose 141 H 122 H Lactic Acid Calcium Phosphorus Magnesium AST ALT Lactate Dehydrogenase CK-MB (CK-2) C-Reactive Protein NT-Pro-B Natriuret Pep Total Protein Albumin Arterial Blood Glucose Urine WBC (Auto) Urine Creatinine 01/26/20 01/26/20 01/27/20 18:03 23:55 04:47 WBC RBC Hgb Hct MCHC RDW MCV MCH Lymph % (Auto) Ida % (Auto) Ida # Eos # Lymph # (Auto) Ida # (Auto) Eos # (Auto) Seg Neutrophils % Seg Neuts % (Manual) Baso # (Auto) Lymphocytes % (Manual) Monocytes % (Manual) Eosinophils % (Manual) Basophils % (Manual) Seg Neutrophils # Seg Neutrophils # Man Lymphocytes # (Manual) Monocytes # (Manual) Eosinophils # (Manual) Nucleated RBC % Basophils # (Manual) PT INR APTT Heparin Anti-Xa Level ABG pH POC ABG pO2 ABG pO2 ABG HCO3 ABG O2 Saturation ABG Base Excess POC ABG pCO2 ABG Hemoglobin ABG Oxyhemoglobin ABG Glucose Oxyhemoglobin Sodium Potassium Chloride Carbon Dioxide BUN 30 H Creatinine 0.7 L Glucose 135 H POC Glucose 142 H 159 H Lactic Acid Calcium Phosphorus Magnesium AST ALT Lactate Dehydrogenase CK-MB (CK-2) C-Reactive Protein NT-Pro-B Natriuret Pep Total Protein Albumin Arterial Blood Glucose Urine WBC (Auto) Urine Creatinine 01/27/20 01/27/20 01/27/20 05:43 12:06 17:16 WBC RBC Hgb Hct MCHC RDW MCV MCH Lymph % (Auto) Ida % (Auto) Ida # Eos # Lymph # (Auto) Ida # (Auto) Eos # (Auto) Seg Neutrophils % Seg Neuts % (Manual) Baso # (Auto) Lymphocytes % (Manual) Monocytes % (Manual) Eosinophils % (Manual) Basophils % (Manual) Seg Neutrophils # Seg Neutrophils # Man Lymphocytes # (Manual) Monocytes # (Manual) Eosinophils # (Manual) Nucleated RBC % Basophils # (Manual) PT INR APTT Heparin Anti-Xa Level ABG pH POC ABG pO2 ABG pO2 ABG HCO3 ABG O2 Saturation ABG Base Excess POC ABG pCO2 ABG Hemoglobin ABG Oxyhemoglobin ABG Glucose Oxyhemoglobin Sodium Potassium Chloride Carbon Dioxide BUN Creatinine Glucose POC Glucose 143 H 142 H 128 H Lactic Acid Calcium Phosphorus Magnesium AST ALT Lactate Dehydrogenase CK-MB (CK-2) C-Reactive Protein NT-Pro-B Natriuret Pep Total Protein Albumin Arterial Blood Glucose Urine WBC (Auto) Urine Creatinine 01/27/20 01/28/20 01/28/20 23:55 04:37 05:55 WBC RBC Hgb 9.4 L Hct 29.9 L MCHC RDW MCV MCH Lymph % (Auto) Ida % (Auto) Ida # Eos # Lymph # (Auto) Ida # (Auto) Eos # (Auto) Seg Neutrophils % Seg Neuts % (Manual) Baso # (Auto) Lymphocytes % (Manual) Monocytes % (Manual) Eosinophils % (Manual) Basophils % (Manual) Seg Neutrophils # Seg Neutrophils # Man Lymphocytes # (Manual) Monocytes # (Manual) Eosinophils # (Manual) Nucleated RBC % Basophils # (Manual) PT INR APTT Heparin Anti-Xa Level ABG pH POC ABG pO2 ABG pO2 ABG HCO3 ABG O2 Saturation ABG Base Excess POC ABG pCO2 ABG Hemoglobin ABG Oxyhemoglobin ABG Glucose Oxyhemoglobin Sodium Potassium Chloride Carbon Dioxide BUN Creatinine Glucose POC Glucose 166 H 169 H Lactic Acid Calcium Phosphorus Magnesium AST ALT Lactate Dehydrogenase CK-MB (CK-2) C-Reactive Protein NT-Pro-B Natriuret Pep Total Protein Albumin Arterial Blood Glucose Urine WBC (Auto) Urine Creatinine 01/28/20 01/28/20 01/28/20 11:58 17:26 23:46 WBC RBC Hgb Hct MCHC RDW MCV MCH Lymph % (Auto) Ida % (Auto) Ida # Eos # Lymph # (Auto) Ida # (Auto) Eos # (Auto) Seg Neutrophils % Seg Neuts % (Manual) Baso # (Auto) Lymphocytes % (Manual) Monocytes % (Manual) Eosinophils % (Manual) Basophils % (Manual) Seg Neutrophils # Seg Neutrophils # Man Lymphocytes # (Manual) Monocytes # (Manual) Eosinophils # (Manual) Nucleated RBC % Basophils # (Manual) PT INR APTT Heparin Anti-Xa Level ABG pH POC ABG pO2 ABG pO2 ABG HCO3 ABG O2 Saturation ABG Base Excess POC ABG pCO2 ABG Hemoglobin ABG Oxyhemoglobin ABG Glucose Oxyhemoglobin Sodium Potassium Chloride Carbon Dioxide BUN Creatinine Glucose POC Glucose 130 H 126 H 150 H Lactic Acid Calcium Phosphorus Magnesium AST ALT Lactate Dehydrogenase CK-MB (CK-2) C-Reactive Protein NT-Pro-B Natriuret Pep Total Protein Albumin Arterial Blood Glucose Urine WBC (Auto) Urine Creatinine 01/29/20 01/29/20 01/29/20 04:55 06:00 12:28 WBC RBC Hgb Hct MCHC RDW MCV MCH Lymph % (Auto) Ida % (Auto) Ida # Eos # Lymph # (Auto) Ida # (Auto) Eos # (Auto) Seg Neutrophils % Seg Neuts % (Manual) Baso # (Auto) Lymphocytes % (Manual) Monocytes % (Manual) Eosinophils % (Manual) Basophils % (Manual) Seg Neutrophils # Seg Neutrophils # Man Lymphocytes # (Manual) Monocytes # (Manual) Eosinophils # (Manual) Nucleated RBC % Basophils # (Manual) PT INR APTT Heparin Anti-Xa Level ABG pH POC ABG pO2 ABG pO2 ABG HCO3 ABG O2 Saturation ABG Base Excess POC ABG pCO2 ABG Hemoglobin ABG Oxyhemoglobin ABG Glucose Oxyhemoglobin Sodium Potassium Chloride Carbon Dioxide 34 H BUN Creatinine 0.6 L Glucose 152 H POC Glucose 157 H 156 H Lactic Acid Calcium Phosphorus Magnesium AST ALT Lactate Dehydrogenase CK-MB (CK-2) C-Reactive Protein NT-Pro-B Natriuret Pep Total Protein Albumin Arterial Blood Glucose Urine WBC (Auto) Urine Creatinine 01/29/20 01/30/20 01/30/20 19:06 00:29 05:39 WBC RBC Hgb Hct MCHC RDW MCV MCH Lymph % (Auto) Ida % (Auto) Ida # Eos # Lymph # (Auto) Ida # (Auto) Eos # (Auto) Seg Neutrophils % Seg Neuts % (Manual) Baso # (Auto) Lymphocytes % (Manual) Monocytes % (Manual) Eosinophils % (Manual) Basophils % (Manual) Seg Neutrophils # Seg Neutrophils # Man Lymphocytes # (Manual) Monocytes # (Manual) Eosinophils # (Manual) Nucleated RBC % Basophils # (Manual) PT INR APTT Heparin Anti-Xa Level ABG pH POC ABG pO2 ABG pO2 ABG HCO3 ABG O2 Saturation ABG Base Excess POC ABG pCO2 ABG Hemoglobin ABG Oxyhemoglobin ABG Glucose Oxyhemoglobin Sodium Potassium Chloride Carbon Dioxide BUN Creatinine Glucose POC Glucose 152 H 132 H 159 H Lactic Acid Calcium Phosphorus Magnesium AST ALT Lactate Dehydrogenase CK-MB (CK-2) C-Reactive Protein NT-Pro-B Natriuret Pep Total Protein Albumin Arterial Blood Glucose Urine WBC (Auto) Urine Creatinine 01/30/20 01/30/20 01/30/20 12:27 17:42 23:28 WBC RBC Hgb Hct MCHC RDW MCV MCH Lymph % (Auto) Ida % (Auto) Ida # Eos # Lymph # (Auto) Ida # (Auto) Eos # (Auto) Seg Neutrophils % Seg Neuts % (Manual) Baso # (Auto) Lymphocytes % (Manual) Monocytes % (Manual) Eosinophils % (Manual) Basophils % (Manual) Seg Neutrophils # Seg Neutrophils # Man Lymphocytes # (Manual) Monocytes # (Manual) Eosinophils # (Manual) Nucleated RBC % Basophils # (Manual) PT INR APTT Heparin Anti-Xa Level ABG pH POC ABG pO2 ABG pO2 ABG HCO3 ABG O2 Saturation ABG Base Excess POC ABG pCO2 ABG Hemoglobin ABG Oxyhemoglobin ABG Glucose Oxyhemoglobin Sodium Potassium Chloride Carbon Dioxide BUN Creatinine Glucose POC Glucose 151 H 144 H 164 H Lactic Acid Calcium Phosphorus Magnesium AST ALT Lactate Dehydrogenase CK-MB (CK-2) C-Reactive Protein NT-Pro-B Natriuret Pep Total Protein Albumin Arterial Blood Glucose Urine WBC (Auto) Urine Creatinine 01/31/20 01/31/20 01/31/20 05:51 11:51 18:06 WBC RBC Hgb Hct MCHC RDW MCV MCH Lymph % (Auto) Ida % (Auto) Ida # Eos # Lymph # (Auto) Ida # (Auto) Eos # (Auto) Seg Neutrophils % Seg Neuts % (Manual) Baso # (Auto) Lymphocytes % (Manual) Monocytes % (Manual) Eosinophils % (Manual) Basophils % (Manual) Seg Neutrophils # Seg Neutrophils # Man Lymphocytes # (Manual) Monocytes # (Manual) Eosinophils # (Manual) Nucleated RBC % Basophils # (Manual) PT INR APTT Heparin Anti-Xa Level ABG pH POC ABG pO2 ABG pO2 ABG HCO3 ABG O2 Saturation ABG Base Excess POC ABG pCO2 ABG Hemoglobin ABG Oxyhemoglobin ABG Glucose Oxyhemoglobin Sodium Potassium Chloride Carbon Dioxide BUN Creatinine Glucose POC Glucose 131 H 167 H 210 H Lactic Acid Calcium Phosphorus Magnesium AST ALT Lactate Dehydrogenase CK-MB (CK-2) C-Reactive Protein NT-Pro-B Natriuret Pep Total Protein Albumin Arterial Blood Glucose Urine WBC (Auto) Urine Creatinine 01/31/20 01/31/20 02/01/20 19:24 Unknown 00:34 WBC RBC Hgb Hct MCHC RDW MCV MCH Lymph % (Auto) Ida % (Auto) Ida # Eos # Lymph # (Auto) Ida # (Auto) Eos # (Auto) Seg Neutrophils % Seg Neuts % (Manual) Baso # (Auto) Lymphocytes % (Manual) Monocytes % (Manual) Eosinophils % (Manual) Basophils % (Manual) Seg Neutrophils # Seg Neutrophils # Man Lymphocytes # (Manual) Monocytes # (Manual) Eosinophils # (Manual) Nucleated RBC % Basophils # (Manual) PT INR APTT Heparin Anti-Xa Level ABG pH POC ABG pO2 ABG pO2 ABG HCO3 ABG O2 Saturation ABG Base Excess POC ABG pCO2 ABG Hemoglobin ABG Oxyhemoglobin ABG Glucose Oxyhemoglobin Sodium Potassium Chloride 95.3 L Carbon Dioxide 33 H BUN 36 H Creatinine Glucose 187 H POC Glucose 116 H Lactic Acid Calcium Phosphorus Magnesium AST ALT Lactate Dehydrogenase CK-MB (CK-2) C-Reactive Protein NT-Pro-B Natriuret Pep Total Protein Albumin Arterial Blood Glucose Urine WBC (Auto) Urine Creatinine 57.4 H 02/01/20 02/01/20 02/01/20 05:24 10:40 12:29 WBC RBC Hgb Hct MCHC RDW MCV MCH Lymph % (Auto) Ida % (Auto) Ida # Eos # Lymph # (Auto) Ida # (Auto) Eos # (Auto) Seg Neutrophils % Seg Neuts % (Manual) Baso # (Auto) Lymphocytes % (Manual) Monocytes % (Manual) Eosinophils % (Manual) Basophils % (Manual) Seg Neutrophils # Seg Neutrophils # Man Lymphocytes # (Manual) Monocytes # (Manual) Eosinophils # (Manual) Nucleated RBC % Basophils # (Manual) PT INR APTT Heparin Anti-Xa Level ABG pH POC ABG pO2 ABG pO2 ABG HCO3 ABG O2 Saturation ABG Base Excess POC ABG pCO2 ABG Hemoglobin ABG Oxyhemoglobin ABG Glucose Oxyhemoglobin Sodium Potassium Chloride Carbon Dioxide BUN Creatinine Glucose POC Glucose 142 H 165 H 151 H Lactic Acid Calcium Phosphorus Magnesium AST ALT Lactate Dehydrogenase CK-MB (CK-2) C-Reactive Protein NT-Pro-B Natriuret Pep Total Protein Albumin Arterial Blood Glucose Urine WBC (Auto) Urine Creatinine 02/01/20 02/01/20 02/02/20 17:16 23:23 06:36 WBC RBC Hgb Hct MCHC RDW MCV MCH Lymph % (Auto) Ida % (Auto) Ida # Eos # Lymph # (Auto) Ida # (Auto) Eos # (Auto) Seg Neutrophils % Seg Neuts % (Manual) Baso # (Auto) Lymphocytes % (Manual) Monocytes % (Manual) Eosinophils % (Manual) Basophils % (Manual) Seg Neutrophils # Seg Neutrophils # Man Lymphocytes # (Manual) Monocytes # (Manual) Eosinophils # (Manual) Nucleated RBC % Basophils # (Manual) PT INR APTT Heparin Anti-Xa Level ABG pH POC ABG pO2 ABG pO2 ABG HCO3 ABG O2 Saturation ABG Base Excess POC ABG pCO2 ABG Hemoglobin ABG Oxyhemoglobin ABG Glucose Oxyhemoglobin Sodium Potassium Chloride Carbon Dioxide BUN Creatinine Glucose POC Glucose 137 H 145 H 181 H Lactic Acid Calcium Phosphorus Magnesium AST ALT Lactate Dehydrogenase CK-MB (CK-2) C-Reactive Protein NT-Pro-B Natriuret Pep Total Protein Albumin Arterial Blood Glucose Urine WBC (Auto) Urine Creatinine 02/02/20 02/02/20 02/02/20 10:01 12:05 17:54 WBC RBC Hgb Hct MCHC RDW MCV MCH Lymph % (Auto) Ida % (Auto) Ida # Eos # Lymph # (Auto) Ida # (Auto) Eos # (Auto) Seg Neutrophils % Seg Neuts % (Manual) Baso # (Auto) Lymphocytes % (Manual) Monocytes % (Manual) Eosinophils % (Manual) Basophils % (Manual) Seg Neutrophils # Seg Neutrophils # Man Lymphocytes # (Manual) Monocytes # (Manual) Eosinophils # (Manual) Nucleated RBC % Basophils # (Manual) PT INR APTT Heparin Anti-Xa Level ABG pH POC ABG pO2 ABG pO2 ABG HCO3 ABG O2 Saturation ABG Base Excess POC ABG pCO2 ABG Hemoglobin ABG Oxyhemoglobin ABG Glucose Oxyhemoglobin Sodium Potassium Chloride 95.3 L Carbon Dioxide BUN 44 H Creatinine Glucose 234 H POC Glucose 184 H 127 H Lactic Acid Calcium Phosphorus Magnesium AST 363 H ALT 457 H Lactate Dehydrogenase CK-MB (CK-2) C-Reactive Protein NT-Pro-B Natriuret Pep Total Protein Albumin 3.0 L Arterial Blood Glucose Urine WBC (Auto) Urine Creatinine 02/02/20 02/03/20 02/03/20 23:47 05:32 07:04 WBC 13.0 H RBC Hgb 9.5 L Hct 30.8 L MCHC 31 L RDW 19.6 H MCV 81 L MCH 25 L Lymph % (Auto) Ida % (Auto) 9.4 H Ida # Eos # Lymph # (Auto) Ida # (Auto) 1.2 H Eos # (Auto) Seg Neutrophils % 72.3 H Seg Neuts % (Manual) Baso # (Auto) Lymphocytes % (Manual) Monocytes % (Manual) Eosinophils % (Manual) Basophils % (Manual) Seg Neutrophils # 9.4 H Seg Neutrophils # Man Lymphocytes # (Manual) Monocytes # (Manual) Eosinophils # (Manual) Nucleated RBC % Basophils # (Manual) PT INR APTT Heparin Anti-Xa Level ABG pH POC ABG pO2 ABG pO2 ABG HCO3 ABG O2 Saturation ABG Base Excess POC ABG pCO2 ABG Hemoglobin ABG Oxyhemoglobin ABG Glucose Oxyhemoglobin Sodium Potassium Chloride Carbon Dioxide BUN Creatinine Glucose POC Glucose 124 H 129 H Lactic Acid Calcium Phosphorus Magnesium AST ALT Lactate Dehydrogenase CK-MB (CK-2) C-Reactive Protein NT-Pro-B Natriuret Pep Total Protein Albumin Arterial Blood Glucose Urine WBC (Auto) Urine Creatinine 02/03/20 02/03/20 07:04 11:32 WBC RBC Hgb Hct MCHC RDW MCV MCH Lymph % (Auto) Ida % (Auto) Ida # Eos # Lymph # (Auto) Ida # (Auto) Eos # (Auto) Seg Neutrophils % Seg Neuts % (Manual) Baso # (Auto) Lymphocytes % (Manual) Monocytes % (Manual) Eosinophils % (Manual) Basophils % (Manual) Seg Neutrophils # Seg Neutrophils # Man Lymphocytes # (Manual) Monocytes # (Manual) Eosinophils # (Manual) Nucleated RBC % Basophils # (Manual) PT INR APTT Heparin Anti-Xa Level ABG pH POC ABG pO2 ABG pO2 ABG HCO3 ABG O2 Saturation ABG Base Excess POC ABG pCO2 ABG Hemoglobin ABG Oxyhemoglobin ABG Glucose Oxyhemoglobin Sodium Potassium Chloride 97.9 L Carbon Dioxide 33 H BUN 39 H Creatinine Glucose 119 H POC Glucose 138 H Lactic Acid Calcium Phosphorus Magnesium AST ALT Lactate Dehydrogenase CK-MB (CK-2) C-Reactive Protein NT-Pro-B Natriuret Pep Total Protein Albumin Arterial Blood Glucose Urine WBC (Auto) Urine Creatinine Allied health notes reviewed: nursing
--- NOTE | 2020-02-03 14:10 | XRay Report ---
CHEST 1 VIEW 02/03/2020 1:04 PM INDICATION / CLINICAL INFORMATION: Fever. COMPARISON: 02/02/2020 FINDINGS: SUPPORT DEVICES: Stable, satisfactory device positioning. HEART / MEDIASTINUM: Stable. LUNGS / PLEURA: Stable bilateral pulmonary opacities. No pneumothorax. ADDITIONAL FINDINGS: No significant additional findings. IMPRESSION: 1. No significant change. Signer Name: Tad Burnett MD Signed: 02/03/2020 2:06 PM Workstation Name: [id number]
[2020-02-03] MEDS: MORPHINE 2 MG/1 ML INJ IV PRN (17:27)
--- NOTE | 2020-02-03 18:23 | Ultrasound Report ---
US CHEST INDICATION / CLINICAL INFORMATION: pleural effusion. COMPARISON: None available. FINDINGS: Moderate-sized right pleural effusion with a volume of about 257 mL. Moderate-sized left pleural effusion with a volume of about 196 mL. IMPRESSION: 1. Bilateral pleural effusions. Signer Name: Wellington Spencer MD Signed: 02/03/2020 6:19 PM Workstation Name: [id number]
[2020-02-03] MEDS: POLYETHYLENE GLYCOL 3350 17 GM POWDER PO SCH (21:08)
[2020-02-03] MEDS: TAMSULOSIN 0.4 MG CAP PO SCH (21:08)
[2020-02-04] MEDS: INSULIN REGULAR, HUMAN 100 UNIT/ML 3ML VIAL SUB-Q SCH ×4 (00:04→19:31)
[2020-02-04] MEDS: METOPROLOL TARTRATE 25 MG TAB PO SCH ×5 (00:04→19:31)
[2020-02-04] MEDS: GLYCOPYRROLATE 2 MG TAB PO SCH ×3 (08:25→21:22)
[2020-02-04] MEDS: MIDODRINE 5 MG TAB PO SCH ×3 (08:25→16:59)
[2020-02-04] MEDS: FAMOTIDINE 20 MG TAB PO SCH ×2 (09:43→21:22)
[2020-02-04] MEDS: APIXABAN 5 MG TAB PO SCH ×2 (09:43→21:23)
[2020-02-04] MEDS: QUEtiapine 100 MG TAB PO SCH ×2 (09:43→21:21)
[2020-02-04] MEDS: CLOPIDOGREL 75 MG TAB PO SCH (09:43)
[2020-02-04] MEDS: AMIODARONE 200 MG TAB PO SCH ×2 (09:43→21:23)
--- NOTE | 2020-02-04 10:42 | Progress Note ---
Assessment and Plan Chest pain, resolved LHC done 01/22/20 widely patent previous LAD stent. We found mild nonobstructive atherosclerosis of the mid right coronary artery. Otherwise the rest of the coronary system was without significant atherosclerosis. LVEF 40 to 45%. There was some hypokinesis of the basal inferior wall suggestive of previous or recent infarct. ECG done 01/19/20 shows sinus rhythm with low voltage QRS and subtle ST segment elevations in the inferolateral leads that suggested possible concern for an acute injury at that time. Atrial fibrillation, paroxysmal on amiodarone and metoprolol Ischemic Cardiomyopathy re-echo this presentation reports an LVEF 40-45%. Hx of CAD Multifocal pneumonia negative COVID-19 test x 3 Chronic Respiratory failure s/p trach History of COPD Acute PE/DVT -on Eliquis Anemia Partial SBO vs ileus Recommend: Continue guideline directed medical therapy for coronary artery disease and atri al fibrillation. Otherwise, conservative cardiac management. Subjective Date of service: 02/04/20 Principal diagnosis: Ac hypoxemic resp failure; Pneumonia; PUI COVID-19; CHF; COPD; HTN Interval history: Patient is resting in bed comfortably. He denies chest pain. Objective Vital Signs Temp Pulse Pulse Resp BP Pulse Ox Pulse Ox 02/04/20 10:01 125 H 16 81/63 100 02/04/20 09:00 124 H 15 88/62 100 02/04/20 08:58 115 H 88/62 100 02/04/20 08:01 114 H 13 87/56 100 02/04/20 08:00 98.2 F 107 H 114 H 13 100 02/04/20 07:00 125 H 14 90/61 100 02/04/20 06:02 88/60 02/04/20 06:00 134 H 16 88/60 100 02/04/20 05:00 133 H 15 90/57 100 02/04/20 04:27 135 H 102/67 100 02/04/20 04:00 97.5 F L 135 H 16 102/67 100 02/04/20 03:00 134 H 13 107/72 100 02/04/20 02:00 134 H 13 106/72 100 02/04/20 01:00 135 H 15 104/68 100 02/04/20 00:45 100 02/04/20 00:04 111 H 91/63 02/04/20 00:03 115 H 17 91/63 100 02/04/20 00:00 98.2 F 133 H 15 93/66 100 02/03/20 23:59 120 H 02/03/20 23:00 118 H 18 94/62 100 02/03/20 22:01 121 H 15 101/65 100 02/03/20 21:00 140 H 17 125/82 100 02/03/20 20:43 128 H 117/73 02/03/20 20:00 98.8 F 113 H 15 116/81 100 02/03/20 19:00 138 H 17 118/79 100 02/03/20 18:00 124 H 16 113/80 100 02/03/20 17:15 96 02/03/20 17:01 131 H 18 117/84 100 02/03/20 16:45 134 H 103/81 100 02/03/20 16:00 99.0 F 126 H 119 H 13 101/76 100 02/03/20 15:00 115 H 13 103/73 100 02/03/20 14:00 124 H 13 111/77 100 02/03/20 13:01 128 H 12 113/79 100 02/03/20 12:35 128 H 113/79 97 02/03/20 12:02 136 H 135/48 02/03/20 12:00 101.1 F H 130 H 120 H 13 135/48 98 02/03/20 11:01 155 H 11 L 137/92 99 - Physical Examination General: Other (s/p trach) HEENT: Positive: PERRL Neck: Positive: neck supple Cardiac: Positive: irregularly irregular Extremities: Absent: edema - Allied health notes Allied health notes reviewed: nursing
[2020-02-04] MEDS: METOCLOPRAMIDE 10 MG/2 ML INJ IV SCH ×2 (12:42→17:03)
--- NOTE | 2020-02-04 12:45 | Progress Note ---
Assessment and Plan Acute hypoxemic respiratory failure Bilateral pneumonia, community acquired. Acute LLL branch P.E. Acute DVT Person under investigation for COVID-19 infection. Acute congestive heart failure exacerbation. History of cerebrovascular accident. Acute chronic obstructive pulmonary disease exacerbation. Hypertension and hypertensive urgency at presentation. History of arthritis. Leukocytosis. Lactic acidosis. Oropharyngeal dysphagia (Suspect IVVD at this point) - Ammonia level WNL - follow CT abd/pelvis - ID consult placed - procalcitonin, & lactate WNL - begin D5NS @ 50 ml's/hr X 2 liters till tube feeds resumed - continue NGT to LIS - continue care as below otherwise; - keep NPO for now - Reglan 5mg IV q6h - Midodrine for BP support - prn mucomyst nebs re: secretions - continue full anticoagulation with Apixaban - continue daily SAT's and SBT assessment as tolerated - continue seroquel for anxiolysis / delirium - COVID isolation per facility protocol - prn diuresis while following electrolytes / I's & O's - continue to wean oxygen for O2 sat's > 92% - continue bronchodilators with routine trach care and pulmonary hygiene per RT - continue Robinul & Scopolamine for secretion control - VAP bundle addressed (Aspiration precautions, HOB >40) - continue to wean per pulmonary driven protocols - sedation target is RASS 0 to -1 - continue prn analgesia per CPOT score - follow clinically re: fever curves / trend WBC - Avoid delirium (no benzodiazepines if they can be avoided) - Maintain sleep-wake cycle - enteral nutrition at goal rate as tolerated - continue accucheck's with glycemic control per SSI for target blood glucose goal of 140-180 mg/dL while critically ill; Avoid hypoglycemia - for VTE he is on IV Heparin - continue stress ulcer prophylaxis with Famotidine - continue mobility protocols for pressure ulcer prophylaxis - continue fall precautions - continue wound care management per RN / WCT - Supportive transfusions to keep HgB>7g/dL - CXR's and ABG's prn - Continue to monitor neurologic function - Continue chronic home medications - Continue all supportive care ........ re-evaluate in am & prn CONDITION: CRITICAL PROGNOSIS: GUARDED CODE STATUS: FULL CODE The high probability of a clinically significant, sudden or life threatening deterioration of the [Respiratory, cardiovascular & neurological] system(s) required my full and direct attention, intervention and personal management. The aggregate critical care time was [36] minutes without overlap. Time includes spent on [x] Data Review and interpretation [x] Patient assessment and monitoring of vital signs [x] Documentation [x] Medication orders and management Subjective Date of service: 02/04/20 Principal diagnosis: Ac hypoxemic resp failure; Pneumonia; PUI COVID-19; CHF; COPD; HTN Interval history: Patient is seen today for: Acute hypoxemic respiratory failure; Adan. Pneumonia (CAP); PUI COVID-19 infection; AE-CHF; AE-COPD; H/O CVA; HTN Seen and examined at bedside; 24 hour events reviewed; nursing and respiratory care staff consulted; no adverse overnight events reported to me; resting peacefully in bed; BP's running low and received 500 mls IVNS bolus; seen by GI and CT ordered; remains NPO with NGT to LIS; more alert and tolerating SBT well today Objective Vital Signs - 12hr 02/04/20 02/04/20 02/04/20 00:45 01:00 02:00 Temperature Pulse Rate 135 H 134 H Pulse Rate [ From Monitor] Respiratory 15 13 Rate Blood Pressure 104/68 106/72 O2 Sat by Pulse 100 100 Oximetry O2 Sat by Pulse 100 Oximetry [ Assessment] 02/04/20 02/04/20 02/04/20 03:00 04:00 04:27 Temperature 97.5 F L Pulse Rate 134 H 135 H 135 H Pulse Rate [ From Monitor] Respiratory 13 16 Rate Blood Pressure 107/72 102/67 102/67 O2 Sat by Pulse 100 100 100 Oximetry O2 Sat by Pulse Oximetry [ Assessment] 02/04/20 02/04/20 02/04/20 05:00 06:00 06:02 Temperature Pulse Rate 133 H 134 H Pulse Rate [ From Monitor] Respiratory 15 16 Rate Blood Pressure 90/57 88/60 88/60 O2 Sat by Pulse 100 100 Oximetry O2 Sat by Pulse Oximetry [ Assessment] 02/04/20 02/04/20 02/04/20 07:00 08:00 08:01 Temperature 98.2 F Pulse Rate 125 H 107 H 114 H Pulse Rate [ 114 H From Monitor] Respiratory 14 13 13 Rate Blood Pressure 90/61 87/56 O2 Sat by Pulse 100 100 100 Oximetry O2 Sat by Pulse Oximetry [ Assessment] 02/04/20 02/04/20 02/04/20 08:58 09:00 10:01 Temperature Pulse Rate 115 H 124 H 125 H Pulse Rate [ From Monitor] Respiratory 15 16 Rate Blood Pressure 88/62 88/62 81/63 O2 Sat by Pulse 100 100 100 Oximetry O2 Sat by Pulse Oximetry [ Assessment] 02/04/20 02/04/20 02/04/20 11:00 12:00 12:28 Temperature 98.5 F Pulse Rate 122 H 133 H Pulse Rate [ 132 H From Monitor] Respiratory 15 16 16 Rate Blood Pressure 89/54 79/61 O2 Sat by Pulse 100 100 100 Oximetry O2 Sat by Pulse Oximetry [ Assessment] 02/04/20 12:42 Temperature Pulse Rate 133 H Pulse Rate [ From Monitor] Respiratory Rate Blood Pressure 87/63 O2 Sat by Pulse Oximetry O2 Sat by Pulse Oximetry [ Assessment] Constitutional: no acute distress, other (elelelderly and obese male, normocephalic with mildly increased respiratory effort at rest) Eyes: non-icteric ENT: oropharynx moist, other (+ midline tracheostomy) Neck: supple, no JVD Effort: mildly labored Ascultation: Bilateral: diminished breath sounds, rhonchi Percussion: Bilateral: not dull Cardiovascular: irregular rhythm, other (flow murmur) Gastrointestinal: normoactive bowel sounds, soft, non-tender, non-distended (protuberant), other (protuberant; PEG in place) Integumentary: normal Extremities: no cyanosis, pulses normal, no ischemia or petechiae, edema (bilateral upper ) Neurologic: non-focal exam (moves extremities), pupils equal and round, CN II-X II normal, motor strength normal and (weak) Psychiatric: other (affect flat) CBC and BMP: 02/03/20 07:04 02/03/20 07:04 ABG, PT/INR, D-dimer: ABG ABG pH 7.447 pH Units (7.350-7.450) 01/25/20 21:02 POC ABG pCO2 45.6 mmHg (32.0-48.0) 01/12/20 13:58 ABG pCO2 47.0 mm Hg 01/25/20 21:02 POC ABG pO2 76.6 mmHg (83-108) L 01/12/20 13:58 ABG pO2 57.5 mm Hg (80.0-90.0) L 01/25/20 21:02 POC ABG HCO3 31.2 01/12/20 13:58 ABG O2 Saturation 90.3 % (95.0-99.0) L 01/25/20 21:02 PT/INR, D-dimer PT 16.9 Sec. (12.2-14.9) H 01/22/20 09:58 INR 1.34 (0.87-1.13) H 01/22/20 09:58 Abnormal lab findings: Abnormal Labs 11/24/19 11/24/19 11/24/19 02:53 02:53 03:45 WBC 14.3 H RBC Hgb Hct MCHC RDW 17.2 H MCV MCH Lymph % (Auto) Gordon % (Auto) Gordon # Eos # Lymph # (Auto) Gordon # (Auto) Eos # (Auto) Seg Neutrophils % Seg Neuts % (Manual) Baso # (Auto) Lymphocytes % (Manual) Monocytes % (Manual) Eosinophils % (Manual) Basophils % (Manual) Seg Neutrophils # Seg Neutrophils # Man 8.3 H Lymphocytes # (Manual) Monocytes # (Manual) 0.9 H Eosinophils # (Manual) Nucleated RBC % Basophils # (Manual) PT INR APTT Heparin Anti-Xa Level ABG pH 7.313 L POC ABG pO2 ABG pO2 102.8 H ABG HCO3 ABG O2 Saturation ABG Base Excess -2.9 L POC ABG pCO2 ABG Hemoglobin ABG Oxyhemoglobin ABG Glucose Oxyhemoglobin 93.9 L Sodium Potassium Chloride Carbon Dioxide BUN Creatinine Glucose 195 H POC Glucose Lactic Acid Calcium Phosphorus Magnesium AST ALT Lactate Dehydrogenase CK-MB (CK-2) 4.3 H C-Reactive Protein NT-Pro-B Natriuret Pep 1181 H Total Protein Albumin Arterial Blood Glucose Urine WBC (Auto) Urine Creatinine 11/24/19 11/24/19 11/24/19 04:53 04:53 10:37 WBC RBC Hgb Hct MCHC RDW MCV MCH Lymph % (Auto) Gordon % (Auto) Gordon # Eos # Lymph # (Auto) Gordon # (Auto) Eos # (Auto) Seg Neutrophils % Seg Neuts % (Manual) Baso # (Auto) Lymphocytes % (Manual) Monocytes % (Manual) Eosinophils % (Manual) Basophils % (Manual) Seg Neutrophils # Seg Neutrophils # Man Lymphocytes # (Manual) Monocytes # (Manual) Eosinophils # (Manual) Nucleated RBC % Basophils # (Manual) PT INR APTT Heparin Anti-Xa Level ABG pH POC ABG pO2 ABG pO2 ABG HCO3 ABG O2 Saturation ABG Base Excess POC ABG pCO2 ABG Hemoglobin ABG Oxyhemoglobin ABG Glucose Oxyhemoglobin Sodium Potassium Chloride Carbon Dioxide BUN Creatinine Glucose 162 H POC Glucose Lactic Acid 2.40 H* 2.50 H* Calcium Phosphorus Magnesium AST ALT Lactate Dehydrogenase 240 H CK-MB (CK-2) C-Reactive Protein NT-Pro-B Natriuret Pep Total Protein Albumin Arterial Blood Glucose Urine WBC (Auto) Urine Creatinine 11/24/19 11/24/19 11/24/19 12:21 14:50 19:54 WBC RBC Hgb Hct MCHC RDW MCV MCH Lymph % (Auto) Gordon % (Auto) Gordon # Eos # Lymph # (Auto) Gordon # (Auto) Eos # (Auto) Seg Neutrophils % Seg Neuts % (Manual) Baso # (Auto) Lymphocytes % (Manual) Monocytes % (Manual) Eosinophils % (Manual) Basophils % (Manual) Seg Neutrophils # Seg Neutrophils # Man Lymphocytes # (Manual) Monocytes # (Manual) Eosinophils # (Manual) Nucleated RBC % Basophils # (Manual) PT INR APTT Heparin Anti-Xa Level ABG pH POC ABG pO2 ABG pO2 ABG HCO3 ABG O2 Saturation ABG Base Excess POC ABG pCO2 ABG Hemoglobin ABG Oxyhemoglobin ABG Glucose Oxyhemoglobin Sodium Potassium Chloride Carbon Dioxide BUN Creatinine Glucose POC Glucose 145 H 143 H 124 H Lactic Acid Calcium Phosphorus Magnesium AST ALT Lactate Dehydrogenase CK-MB (CK-2) C-Reactive Protein NT-Pro-B Natriuret Pep Total Protein Albumin Arterial Blood Glucose Urine WBC (Auto) Urine Creatinine 11/25/19 11/25/19 11/25/19 00:18 03:18 05:11 WBC 13.7 H RBC Hgb Hct MCHC RDW 17.1 H MCV MCH Lymph % (Auto) 10.8 L Gordon % (Auto) 8.7 H Gordon # 1.2 H Eos # Lymph # (Auto) Gordon # (Auto) Eos # (Auto) Seg Neutrophils % 80.2 H Seg Neuts % (Manual) Baso # (Auto) Lymphocytes % (Manual) Monocytes % (Manual) Eosinophils % (Manual) Basophils % (Manual) Seg Neutrophils # 11.0 H Seg Neutrophils # Man Lymphocytes # (Manual) Monocytes # (Manual) Eosinophils # (Manual) Nucleated RBC % Basophils # (Manual) PT INR APTT Heparin Anti-Xa Level ABG pH 7.333 L POC ABG pO2 ABG pO2 61.2 L ABG HCO3 ABG O2 Saturation 90.2 L ABG Base Excess POC ABG pCO2 ABG Hemoglobin 13.7 L ABG Oxyhemoglobin ABG Glucose Oxyhemoglobin 88.2 L Sodium Potassium Chloride Carbon Dioxide BUN Creatinine Glucose POC Glucose 109 H Lactic Acid Calcium Phosphorus Magnesium AST ALT Lactate Dehydrogenase CK-MB (CK-2) C-Reactive Protein NT-Pro-B Natriuret Pep Total Protein Albumin Arterial Blood Glucose Urine WBC (Auto) Urine Creatinine 11/25/19 11/25/19 11/26/19 05:11 11:40 03:12 WBC RBC Hgb Hct MCHC RDW MCV MCH Lymph % (Auto) Gordon % (Auto) Gordon # Eos # Lymph # (Auto) Gordon # (Auto) Eos # (Auto) Seg Neutrophils % Seg Neuts % (Manual) Baso # (Auto) Lymphocytes % (Manual) Monocytes % (Manual) Eosinophils % (Manual) Basophils % (Manual) Seg Neutrophils # Seg Neutrophils # Man Lymphocytes # (Manual) Monocytes # (Manual) Eosinophils # (Manual) Nucleated RBC % Basophils # (Manual) PT INR APTT Heparin Anti-Xa Level ABG pH POC ABG pO2 ABG pO2 155.1 H ABG HCO3 27.8 H ABG O2 Saturation ABG Base Excess POC ABG pCO2 ABG Hemoglobin 12.2 L ABG Oxyhemoglobin ABG Glucose Oxyhemoglobin Sodium Potassium Chloride Carbon Dioxide BUN 23 H Creatinine Glucose 110 H POC Glucose 108 H Lactic Acid Calcium Phosphorus Magnesium AST ALT Lactate Dehydrogenase CK-MB (CK-2) C-Reactive Protein NT-Pro-B Natriuret Pep Total Protein Albumin Arterial Blood Glucose Urine WBC (Auto) Urine Creatinine 11/26/19 11/26/19 11/26/19 06:17 10:43 10:43 WBC 11.4 H RBC Hgb Hct MCHC RDW 17.1 H MCV MCH Lymph % (Auto) Gordon % (Auto) Gordon # Eos # Lymph # (Auto) Gordon # (Auto) Eos # (Auto) Seg Neutrophils % Seg Neuts % (Manual) Baso # (Auto) Lymphocytes % (Manual) Monocytes % (Manual) Eosinophils % (Manual) Basophils % (Manual) Seg Neutrophils # Seg Neutrophils # Man Lymphocytes # (Manual) Monocytes # (Manual) Eosinophils # (Manual) Nucleated RBC % Basophils # (Manual) PT INR APTT Heparin Anti-Xa Level ABG pH POC ABG pO2 ABG pO2 ABG HCO3 ABG O2 Saturation ABG Base Excess POC ABG pCO2 ABG Hemoglobin ABG Oxyhemoglobin ABG Glucose Oxyhemoglobin Sodium Potassium Chloride Carbon Dioxide BUN 29 H Creatinine Glucose POC Glucose 107 H Lactic Acid Calcium Phosphorus Magnesium AST ALT Lactate Dehydrogenase CK-MB (CK-2) C-Reactive Protein NT-Pro-B Natriuret Pep Total Protein Albumin Arterial Blood Glucose Urine WBC (Auto) Urine Creatinine 11/26/19 11/27/19 11/27/19 17:11 01:53 04:11 WBC RBC Hgb Hct MCHC RDW MCV MCH Lymph % (Auto) Gordon % (Auto) Gordon # Eos # Lymph # (Auto) Gordon # (Auto) Eos # (Auto) Seg Neutrophils % Seg Neuts % (Manual) Baso # (Auto) Lymphocytes % (Manual) Monocytes % (Manual) Eosinophils % (Manual) Basophils % (Manual) Seg Neutrophils # Seg Neutrophils # Man Lymphocytes # (Manual) Monocytes # (Manual) Eosinophils # (Manual) Nucleated RBC % Basophils # (Manual) PT INR APTT Heparin Anti-Xa Level ABG pH POC ABG pO2 ABG pO2 ABG HCO3 29.2 H ABG O2 Saturation ABG Base Excess 3.4 H POC ABG pCO2 ABG Hemoglobin 13.3 L ABG Oxyhemoglobin ABG Glucose Oxyhemoglobin 94.5 L Sodium Potassium Chloride Carbon Dioxide BUN Creatinine Glucose POC Glucose 113 H 108 H Lactic Acid Calcium Phosphorus Magnesium AST ALT Lactate Dehydrogenase CK-MB (CK-2) C-Reactive Protein NT-Pro-B Natriuret Pep Total Protein Albumin Arterial Blood Glucose Urine WBC (Auto) Urine Creatinine 11/27/19 11/28/19 11/28/19 05:27 05:00 05:25 WBC RBC Hgb Hct MCHC RDW MCV MCH Lymph % (Auto) Gordon % (Auto) Gordon # Eos # Lymph # (Auto) Gordon # (Auto) Eos # (Auto) Seg Neutrophils % Seg Neuts % (Manual) Baso # (Auto) Lymphocytes % (Manual) Monocytes % (Manual) Eosinophils % (Manual) Basophils % (Manual) Seg Neutrophils # Seg Neutrophils # Man Lymphocytes # (Manual) Monocytes # (Manual) Eosinophils # (Manual) Nucleated RBC % Basophils # (Manual) PT INR APTT Heparin Anti-Xa Level ABG pH POC ABG pO2 68.1 L ABG pO2 ABG HCO3 ABG O2 Saturation ABG Base Excess POC ABG pCO2 ABG Hemoglobin ABG Oxyhemoglobin 91.2 L ABG Glucose Oxyhemoglobin Sodium Potassium Chloride Carbon Dioxide BUN Creatinine Glucose POC Glucose 111 H 110 H Lactic Acid Calcium Phosphorus Magnesium AST ALT Lactate Dehydrogenase CK-MB (CK-2) C-Reactive Protein NT-Pro-B Natriuret Pep Total Protein Albumin Arterial Blood Glucose Urine WBC (Auto) Urine Creatinine 11/28/19 11/28/19 11/28/19 12:08 13:47 13:47 WBC 11.3 H RBC Hgb Hct MCHC RDW 16.1 H MCV MCH Lymph % (Auto) Gordon % (Auto) 9.9 H Gordon # 1.1 H Eos # Lymph # (Auto) Gordon # (Auto) Eos # (Auto) Seg Neutrophils % 71.4 H Seg Neuts % (Manual) Baso # (Auto) Lymphocytes % (Manual) Monocytes % (Manual) Eosinophils % (Manual) Basophils % (Manual) Seg Neutrophils # 8.1 H Seg Neutrophils # Man Lymphocytes # (Manual) Monocytes # (Manual) Eosinophils # (Manual) Nucleated RBC % Basophils # (Manual) PT INR APTT Heparin Anti-Xa Level ABG pH POC ABG pO2 ABG pO2 ABG HCO3 ABG O2 Saturation ABG Base Excess POC ABG pCO2 ABG Hemoglobin ABG Oxyhemoglobin ABG Glucose Oxyhemoglobin Sodium Potassium Chloride Carbon Dioxide BUN 23 H Creatinine Glucose 123 H POC Glucose 112 H Lactic Acid Calcium Phosphorus Magnesium AST ALT Lactate Dehydrogenase CK-MB (CK-2) C-Reactive Protein NT-Pro-B Natriuret Pep Total Protein Albumin 3.7 L Arterial Blood Glucose Urine WBC (Auto) Urine Creatinine 11/28/19 11/29/19 11/29/19 17:26 03:55 17:04 WBC RBC Hgb Hct MCHC RDW MCV MCH Lymph % (Auto) Gordon % (Auto) Gordon # Eos # Lymph # (Auto) Gordon # (Auto) Eos # (Auto) Seg Neutrophils % Seg Neuts % (Manual) Baso # (Auto) Lymphocytes % (Manual) Monocytes % (Manual) Eosinophils % (Manual) Basophils % (Manual) Seg Neutrophils # Seg Neutrophils # Man Lymphocytes # (Manual) Monocytes # (Manual) Eosinophils # (Manual) Nucleated RBC % Basophils # (Manual) PT INR APTT Heparin Anti-Xa Level ABG pH POC ABG pO2 ABG pO2 65.7 L ABG HCO3 28.3 H ABG O2 Saturation 93.9 L ABG Base Excess 3.6 H POC ABG pCO2 ABG Hemoglobin 13.3 L ABG Oxyhemoglobin ABG Glucose Oxyhemoglobin 91.5 L Sodium Potassium Chloride Carbon Dioxide BUN Creatinine Glucose POC Glucose 123 H 119 H Lactic Acid Calcium Phosphorus Magnesium AST ALT Lactate Dehydrogenase CK-MB (CK-2) C-Reactive Protein NT-Pro-B Natriuret Pep Total Protein Albumin Arterial Blood Glucose Urine WBC (Auto) Urine Creatinine 11/30/19 11/30/19 11/30/19 04:17 04:17 04:56 WBC 13.4 H RBC Hgb Hct MCHC RDW 15.6 H MCV MCH Lymph % (Auto) Gordon % (Auto) Gordon # Eos # Lymph # (Auto) Gordon # (Auto) Eos # (Auto) Seg Neutrophils % Seg Neuts % (Manual) Baso # (Auto) Lymphocytes % (Manual) Monocytes % (Manual) Eosinophils % (Manual) Basophils % (Manual) Seg Neutrophils # Seg Neutrophils # Man Lymphocytes # (Manual) Monocytes # (Manual) Eosinophils # (Manual) Nucleated RBC % Basophils # (Manual) PT INR APTT Heparin Anti-Xa Level ABG pH POC ABG pO2 ABG pO2 56.3 L ABG HCO3 29.3 H ABG O2 Saturation 91.5 L ABG Base Excess 4.7 H POC ABG pCO2 ABG Hemoglobin 12.1 L ABG Oxyhemoglobin ABG Glucose Oxyhemoglobin 89.2 L Sodium 147 H Potassium Chloride Carbon Dioxide BUN 30 H Creatinine Glucose 124 H POC Glucose Lactic Acid Calcium Phosphorus Magnesium AST ALT Lactate Dehydrogenase CK-MB (CK-2) C-Reactive Protein NT-Pro-B Natriuret Pep Total Protein Albumin 3.8 L Arterial Blood Glucose Urine WBC (Auto) Urine Creatinine 11/30/19 11/30/19 11/30/19 05:51 11:54 18:17 WBC RBC Hgb Hct MCHC RDW MCV MCH Lymph % (Auto) Gordon % (Auto) Gordon # Eos # Lymph # (Auto) Gordon # (Auto) Eos # (Auto) Seg Neutrophils % Seg Neuts % (Manual) Baso # (Auto) Lymphocytes % (Manual) Monocytes % (Manual) Eosinophils % (Manual) Basophils % (Manual) Seg Neutrophils # Seg Neutrophils # Man Lymphocytes # (Manual) Monocytes # (Manual) Eosinophils # (Manual) Nucleated RBC % Basophils # (Manual) PT INR APTT Heparin Anti-Xa Level ABG pH POC ABG pO2 ABG pO2 ABG HCO3 ABG O2 Saturation ABG Base Excess POC ABG pCO2 ABG Hemoglobin ABG Oxyhemoglobin ABG Glucose Oxyhemoglobin Sodium Potassium Chloride Carbon Dioxide BUN Creatinine Glucose POC Glucose 127 H 115 H 143 H Lactic Acid Calcium Phosphorus Magnesium AST ALT Lactate Dehydrogenase CK-MB (CK-2) C-Reactive Protein NT-Pro-B Natriuret Pep Total Protein Albumin Arterial Blood Glucose Urine WBC (Auto) Urine Creatinine 12/01/19 12/01/19 12/01/19 01:18 05:22 12:16 WBC RBC Hgb Hct MCHC RDW MCV MCH Lymph % (Auto) Gordon % (Auto) Gordon # Eos # Lymph # (Auto) Gordon # (Auto) Eos # (Auto) Seg Neutrophils % Seg Neuts % (Manual) Baso # (Auto) Lymphocytes % (Manual) Monocytes % (Manual) Eosinophils % (Manual) Basophils % (Manual) Seg Neutrophils # Seg Neutrophils # Man Lymphocytes # (Manual) Monocytes # (Manual) Eosinophils # (Manual) Nucleated RBC % Basophils # (Manual) PT INR APTT Heparin Anti-Xa Level ABG pH POC ABG pO2 ABG pO2 ABG HCO3 ABG O2 Saturation ABG Base Excess POC ABG pCO2 ABG Hemoglobin ABG Oxyhemoglobin ABG Glucose Oxyhemoglobin Sodium Potassium 3.5 L Chloride 107.8 H Carbon Dioxide BUN 37 H Creatinine Glucose 157 H POC Glucose 118 H 148 H Lactic Acid Calcium 8.2 L D Phosphorus Magnesium AST 48 H ALT 60 H Lactate Dehydrogenase 194 H CK-MB (CK-2) C-Reactive Protein 8.50 H NT-Pro-B Natriuret Pep Total Protein 5.5 L Albumin 2.8 L Arterial Blood Glucose Urine WBC (Auto) Urine Creatinine 12/01/19 12/02/19 12/02/19 18:04 00:05 05:16 WBC 11.4 H RBC Hgb Hct MCHC RDW 15.9 H MCV MCH Lymph % (Auto) Gordon % (Auto) 9.9 H Gordon # 1.1 H Eos # Lymph # (Auto) Gordon # (Auto) Eos # (Auto) Seg Neutrophils % 70.3 H Seg Neuts % (Manual) Baso # (Auto) Lymphocytes % (Manual) Monocytes % (Manual) Eosinophils % (Manual) Basophils % (Manual) Seg Neutrophils # 8.0 H Seg Neutrophils # Man Lymphocytes # (Manual) Monocytes # (Manual) Eosinophils # (Manual) Nucleated RBC % Basophils # (Manual) PT INR APTT Heparin Anti-Xa Level ABG pH POC ABG pO2 ABG pO2 ABG HCO3 ABG O2 Saturation ABG Base Excess POC ABG pCO2 ABG Hemoglobin ABG Oxyhemoglobin ABG Glucose Oxyhemoglobin Sodium Potassium Chloride Carbon Dioxide BUN Creatinine Glucose POC Glucose 143 H 107 H Lactic Acid Calcium Phosphorus Magnesium AST ALT Lactate Dehydrogenase CK-MB (CK-2) C-Reactive Protein NT-Pro-B Natriuret Pep Total Protein Albumin Arterial Blood Glucose Urine WBC (Auto) Urine Creatinine 12/02/19 12/02/19 12/02/19 05:16 06:03 11:52 WBC RBC Hgb Hct MCHC RDW MCV MCH Lymph % (Auto) Gordon % (Auto) Gordon # Eos # Lymph # (Auto) Gordon # (Auto) Eos # (Auto) Seg Neutrophils % Seg Neuts % (Manual) Baso # (Auto) Lymphocytes % (Manual) Monocytes % (Manual) Eosinophils % (Manual) Basophils % (Manual) Seg Neutrophils # Seg Neutrophils # Man Lymphocytes # (Manual) Monocytes # (Manual) Eosinophils # (Manual) Nucleated RBC % Basophils # (Manual) PT INR APTT Heparin Anti-Xa Level ABG pH POC ABG pO2 ABG pO2 ABG HCO3 ABG O2 Saturation ABG Base Excess POC ABG pCO2 ABG Hemoglobin ABG Oxyhemoglobin ABG Glucose Oxyhemoglobin Sodium 146 H Potassium Chloride Carbon Dioxide BUN 28 H Creatinine Glucose 123 H POC Glucose 110 H 152 H Lactic Acid Calcium Phosphorus Magnesium AST ALT Lactate Dehydrogenase CK-MB (CK-2) C-Reactive Protein NT-Pro-B Natriuret Pep Total Protein Albumin Arterial Blood Glucose Urine WBC (Auto) Urine Creatinine 12/02/19 12/02/19 12/02/19 12:58 17:58 23:36 WBC RBC Hgb Hct MCHC RDW MCV MCH Lymph % (Auto) Gordon % (Auto) Gordon # Eos # Lymph # (Auto) Gordon # (Auto) Eos # (Auto) Seg Neutrophils % Seg Neuts % (Manual) Baso # (Auto) Lymphocytes % (Manual) Monocytes % (Manual) Eosinophils % (Manual) Basophils % (Manual) Seg Neutrophils # Seg Neutrophils # Man Lymphocytes # (Manual) Monocytes # (Manual) Eosinophils # (Manual) Nucleated RBC % Basophils # (Manual) PT INR APTT Heparin Anti-Xa Level ABG pH POC ABG pO2 78.1 L ABG pO2 ABG HCO3 ABG O2 Saturation ABG Base Excess POC ABG pCO2 ABG Hemoglobin ABG Oxyhemoglobin ABG Glucose Oxyhemoglobin Sodium Potassium Chloride Carbon Dioxide BUN Creatinine Glucose POC Glucose 120 H 123 H Lactic Acid Calcium Phosphorus Magnesium AST ALT Lactate Dehydrogenase CK-MB (CK-2) C-Reactive Protein NT-Pro-B Natriuret Pep Total Protein Albumin Arterial Blood Glucose Urine WBC (Auto) Urine Creatinine 12/03/19 12/03/19 12/03/19 06:03 06:14 11:46 WBC RBC Hgb Hct MCHC RDW MCV MCH Lymph % (Auto) Gordon % (Auto) Gordon # Eos # Lymph # (Auto) Gordon # (Auto) Eos # (Auto) Seg Neutrophils % Seg Neuts % (Manual) Baso # (Auto) Lymphocytes % (Manual) Monocytes % (Manual) Eosinophils % (Manual) Basophils % (Manual) Seg Neutrophils # Seg Neutrophils # Man Lymphocytes # (Manual) Monocytes # (Manual) Eosinophils # (Manual) Nucleated RBC % Basophils # (Manual) PT INR APTT Heparin Anti-Xa Level ABG pH POC ABG pO2 ABG pO2 ABG HCO3 ABG O2 Saturation ABG Base Excess POC ABG pCO2 ABG Hemoglobin ABG Oxyhemoglobin ABG Glucose Oxyhemoglobin Sodium Potassium Chloride Carbon Dioxide BUN Creatinine Glucose POC Glucose 142 H 130 H Lactic Acid Calcium Phosphorus Magnesium AST ALT Lactate Dehydrogenase CK-MB (CK-2) C-Reactive Protein NT-Pro-B Natriuret Pep Total Protein Albumin Arterial Blood Glucose Urine WBC (Auto) 8.0 H Urine Creatinine 12/03/19 12/03/19 12/04/19 15:50 17:39 00:04 WBC RBC Hgb Hct MCHC RDW MCV MCH Lymph % (Auto) Gordon % (Auto) Gordon # Eos # Lymph # (Auto) Gordon # (Auto) Eos # (Auto) Seg Neutrophils % Seg Neuts % (Manual) Baso # (Auto) Lymphocytes % (Manual) Monocytes % (Manual) Eosinophils % (Manual) Basophils % (Manual) Seg Neutrophils # Seg Neutrophils # Man Lymphocytes # (Manual) Monocytes # (Manual) Eosinophils # (Manual) Nucleated RBC % Basophils # (Manual) PT INR APTT Heparin Anti-Xa Level ABG pH POC ABG pO2 ABG pO2 ABG HCO3 ABG O2 Saturation ABG Base Excess POC ABG pCO2 ABG Hemoglobin ABG Oxyhemoglobin ABG Glucose Oxyhemoglobin Sodium Potassium Chloride Carbon Dioxide BUN Creatinine Glucose POC Glucose 146 H 133 H Lactic Acid Calcium Phosphorus 2.40 L Magnesium AST ALT Lactate Dehydrogenase CK-MB (CK-2) C-Reactive Protein NT-Pro-B Natriuret Pep Total Protein Albumin Arterial Blood Glucose Urine WBC (Auto) Urine Creatinine 12/04/19 12/04/19 12/04/19 03:58 03:58 05:22 WBC 12.5 H RBC Hgb 11.2 L Hct 35.2 L MCHC RDW 16.0 H MCV MCH Lymph % (Auto) Gordon % (Auto) 9.6 H Gordon # 1.2 H Eos # 0.5 H Lymph # (Auto) Gordon # (Auto) Eos # (Auto) Seg Neutrophils % Seg Neuts % (Manual) Baso # (Auto) Lymphocytes % (Manual) Monocytes % (Manual) Eosinophils % (Manual) Basophils % (Manual) Seg Neutrophils # 8.6 H Seg Neutrophils # Man Lymphocytes # (Manual) Monocytes # (Manual) Eosinophils # (Manual) Nucleated RBC % Basophils # (Manual) PT INR APTT Heparin Anti-Xa Level ABG pH POC ABG pO2 ABG pO2 ABG HCO3 ABG O2 Saturation ABG Base Excess POC ABG pCO2 ABG Hemoglobin ABG Oxyhemoglobin ABG Glucose Oxyhemoglobin Sodium 146 H Potassium Chloride 108.6 H Carbon Dioxide BUN 30 H Creatinine 0.7 L Glucose 121 H POC Glucose 132 H Lactic Acid Calcium Phosphorus Magnesium AST ALT Lactate Dehydrogenase CK-MB (CK-2) C-Reactive Protein NT-Pro-B Natriuret Pep Total Protein Albumin Arterial Blood Glucose Urine WBC (Auto) Urine Creatinine 12/04/19 12/04/19 12/05/19 13:26 18:43 00:19 WBC RBC Hgb Hct MCHC RDW MCV MCH Lymph % (Auto) Gordon % (Auto) Gordon # Eos # Lymph # (Auto) Gordon # (Auto) Eos # (Auto) Seg Neutrophils % Seg Neuts % (Manual) Baso # (Auto) Lymphocytes % (Manual) Monocytes % (Manual) Eosinophils % (Manual) Basophils % (Manual) Seg Neutrophils # Seg Neutrophils # Man Lymphocytes # (Manual) Monocytes # (Manual) Eosinophils # (Manual) Nucleated RBC % Basophils # (Manual) PT INR APTT Heparin Anti-Xa Level ABG pH POC ABG pO2 ABG pO2 ABG HCO3 ABG O2 Saturation ABG Base Excess POC ABG pCO2 ABG Hemoglobin ABG Oxyhemoglobin ABG Glucose Oxyhemoglobin Sodium Potassium Chloride Carbon Dioxide BUN Creatinine Glucose POC Glucose 185 H 156 H 150 H Lactic Acid Calcium Phosphorus Magnesium AST ALT Lactate Dehydrogenase CK-MB (CK-2) C-Reactive Protein NT-Pro-B Natriuret Pep Total Protein Albumin Arterial Blood Glucose Urine WBC (Auto) Urine Creatinine 12/05/19 12/05/19 12/05/19 03:37 03:37 05:14 WBC 16.3 H RBC Hgb 11.4 L Hct MCHC RDW 15.6 H MCV MCH Lymph % (Auto) 9.9 L Gordon % (Auto) 9.7 H Gordon # 1.6 H Eos # Lymph # (Auto) Gordon # (Auto) Eos # (Auto) Seg Neutrophils % 78.0 H Seg Neuts % (Manual) Baso # (Auto) Lymphocytes % (Manual) Monocytes % (Manual) Eosinophils % (Manual) Basophils % (Manual) Seg Neutrophils # 12.7 H Seg Neutrophils # Man Lymphocytes # (Manual) Monocytes # (Manual) Eosinophils # (Manual) Nucleated RBC % Basophils # (Manual) PT INR APTT Heparin Anti-Xa Level ABG pH POC ABG pO2 ABG pO2 ABG HCO3 ABG O2 Saturation ABG Base Excess POC ABG pCO2 ABG Hemoglobin ABG Oxyhemoglobin ABG Glucose Oxyhemoglobin Sodium 146 H Potassium Chloride 107.2 H Carbon Dioxide BUN 27 H Creatinine 0.7 L Glucose 171 H POC Glucose 168 H Lactic Acid Calcium Phosphorus Magnesium AST ALT Lactate Dehydrogenase CK-MB (CK-2) C-Reactive Protein NT-Pro-B Natriuret Pep Total Protein Albumin Arterial Blood Glucose Urine WBC (Auto) Urine Creatinine 12/05/19 12/05/19 12/05/19 12:31 18:10 23:58 WBC RBC Hgb Hct MCHC RDW MCV MCH Lymph % (Auto) Gordon % (Auto) Gordon # Eos # Lymph # (Auto) Gordon # (Auto) Eos # (Auto) Seg Neutrophils % Seg Neuts % (Manual) Baso # (Auto) Lymphocytes % (Manual) Monocytes % (Manual) Eosinophils % (Manual) Basophils % (Manual) Seg Neutrophils # Seg Neutrophils # Man Lymphocytes # (Manual) Monocytes # (Manual) Eosinophils # (Manual) Nucleated RBC % Basophils # (Manual) PT INR APTT Heparin Anti-Xa Level ABG pH POC ABG pO2 ABG pO2 ABG HCO3 ABG O2 Saturation ABG Base Excess POC ABG pCO2 ABG Hemoglobin ABG Oxyhemoglobin ABG Glucose Oxyhemoglobin Sodium Potassium Chloride Carbon Dioxide BUN Creatinine Glucose POC Glucose 159 H 198 H 115 H Lactic Acid Calcium Phosphorus Magnesium AST ALT Lactate Dehydrogenase CK-MB (CK-2) C-Reactive Protein NT-Pro-B Natriuret Pep Total Protein Albumin Arterial Blood Glucose Urine WBC (Auto) Urine Creatinine 12/06/19 12/06/19 12/06/19 05:24 05:24 05:25 WBC 14.9 H RBC Hgb 10.8 L Hct 34.0 L MCHC RDW 15.6 H MCV MCH Lymph % (Auto) 10.7 L Gordon % (Auto) 8.3 H Gordon # 1.2 H Eos # Lymph # (Auto) Gordon # (Auto) Eos # (Auto) Seg Neutrophils % 78.7 H Seg Neuts % (Manual) Baso # (Auto) Lymphocytes % (Manual) Monocytes % (Manual) Eosinophils % (Manual) Basophils % (Manual) Seg Neutrophils # 11.7 H Seg Neutrophils # Man Lymphocytes # (Manual) Monocytes # (Manual) Eosinophils # (Manual) Nucleated RBC % Basophils # (Manual) PT INR APTT Heparin Anti-Xa Level ABG pH POC ABG pO2 ABG pO2 ABG HCO3 ABG O2 Saturation ABG Base Excess POC ABG pCO2 ABG Hemoglobin ABG Oxyhemoglobin ABG Glucose Oxyhemoglobin Sodium 148 H Potassium 5.1 H Chloride 107.6 H Carbon Dioxide BUN 27 H Creatinine 0.7 L Glucose 155 H POC Glucose 157 H Lactic Acid Calcium Phosphorus Magnesium AST ALT Lactate Dehydrogenase CK-MB (CK-2) C-Reactive Protein NT-Pro-B Natriuret Pep Total Protein Albumin Arterial Blood Glucose Urine WBC (Auto) Urine Creatinine 12/07/19 12/07/19 12/07/19 00:13 05:34 11:33 WBC RBC Hgb Hct MCHC RDW MCV MCH Lymph % (Auto) Gordon % (Auto) Gordon # Eos # Lymph # (Auto) Gordon # (Auto) Eos # (Auto) Seg Neutrophils % Seg Neuts % (Manual) Baso # (Auto) Lymphocytes % (Manual) Monocytes % (Manual) Eosinophils % (Manual) Basophils % (Manual) Seg Neutrophils # Seg Neutrophils # Man Lymphocytes # (Manual) Monocytes # (Manual) Eosinophils # (Manual) Nucleated RBC % Basophils # (Manual) PT INR APTT Heparin Anti-Xa Level ABG pH POC ABG pO2 ABG pO2 ABG HCO3 ABG O2 Saturation ABG Base Excess POC ABG pCO2 ABG Hemoglobin ABG Oxyhemoglobin ABG Glucose Oxyhemoglobin Sodium Potassium Chloride Carbon Dioxide BUN Creatinine Glucose POC Glucose 142 H 111 H 169 H Lactic Acid Calcium Phosphorus Magnesium AST ALT Lactate Dehydrogenase CK-MB (CK-2) C-Reactive Protein NT-Pro-B Natriuret Pep Total Protein Albumin Arterial Blood Glucose Urine WBC (Auto) Urine Creatinine 12/07/19 12/07/19 12/07/19 12:41 13:25 18:19 WBC 12.4 H RBC 3.53 L Hgb 10.2 L Hct 32.1 L MCHC RDW 15.3 H MCV MCH Lymph % (Auto) 10.6 L Gordon % (Auto) 7.8 H Gordon # 1.0 H Eos # Lymph # (Auto) Gordon # (Auto) Eos # (Auto) Seg Neutrophils % 77.6 H Seg Neuts % (Manual) Baso # (Auto) Lymphocytes % (Manual) Monocytes % (Manual) Eosinophils % (Manual) Basophils % (Manual) Seg Neutrophils # 9.6 H Seg Neutrophils # Man Lymphocytes # (Manual) Monocytes # (Manual) Eosinophils # (Manual) Nucleated RBC % Basophils # (Manual) PT INR APTT Heparin Anti-Xa Level ABG pH POC ABG pO2 ABG pO2 ABG HCO3 ABG O2 Saturation ABG Base Excess POC ABG pCO2 ABG Hemoglobin ABG Oxyhemoglobin ABG Glucose Oxyhemoglobin Sodium 149 H Potassium Chloride 108.4 H Carbon Dioxide BUN 26 H Creatinine 0.6 L Glucose 149 H POC Glucose 164 H Lactic Acid Calcium Phosphorus Magnesium 2.60 H AST 121 H ALT 145 H Lactate Dehydrogenase CK-MB (CK-2) C-Reactive Protein NT-Pro-B Natriuret Pep Total Protein Albumin 2.6 L Arterial Blood Glucose Urine WBC (Auto) Urine Creatinine 12/07/19 12/08/19 12/08/19 22:25 00:02 03:55 WBC 13.3 H RBC 3.40 L Hgb 9.7 L Hct 30.8 L MCHC 31 L RDW 15.5 H MCV MCH Lymph % (Auto) Gordon % (Auto) 8.1 H Gordon # 1.1 H Eos # Lymph # (Auto) Gordon # (Auto) Eos # (Auto) Seg Neutrophils % 73.0 H Seg Neuts % (Manual) Baso # (Auto) Lymphocytes % (Manual) Monocytes % (Manual) Eosinophils % (Manual) Basophils % (Manual) Seg Neutrophils # 9.7 H Seg Neutrophils # Man Lymphocytes # (Manual) Monocytes # (Manual) Eosinophils # (Manual) Nucleated RBC % Basophils # (Manual) PT INR APTT Heparin Anti-Xa Level 0.12 L ABG pH POC ABG pO2 ABG pO2 ABG HCO3 ABG O2 Saturation ABG Base Excess POC ABG pCO2 ABG Hemoglobin ABG Oxyhemoglobin ABG Glucose Oxyhemoglobin Sodium Potassium Chloride Carbon Dioxide BUN Creatinine Glucose POC Glucose 151 H Lactic Acid Calcium Phosphorus Magnesium AST ALT Lactate Dehydrogenase CK-MB (CK-2) C-Reactive Protein NT-Pro-B Natriuret Pep Total Protein Albumin Arterial Blood Glucose Urine WBC (Auto) Urine Creatinine 12/08/19 12/08/19 12/08/19 03:55 05:21 06:01 WBC RBC Hgb Hct MCHC RDW MCV MCH Lymph % (Auto) Gordon % (Auto) Gordon # Eos # Lymph # (Auto) Gordon # (Auto) Eos # (Auto) Seg Neutrophils % Seg Neuts % (Manual) Baso # (Auto) Lymphocytes % (Manual) Monocytes % (Manual) Eosinophils % (Manual) Basophils % (Manual) Seg Neutrophils # Seg Neutrophils # Man Lymphocytes # (Manual) Monocytes # (Manual) Eosinophils # (Manual) Nucleated RBC % Basophils # (Manual) PT INR APTT Heparin Anti-Xa Level 0.20 L ABG pH POC ABG pO2 ABG pO2 ABG HCO3 ABG O2 Saturation ABG Base Excess POC ABG pCO2 ABG Hemoglobin ABG Oxyhemoglobin ABG Glucose Oxyhemoglobin Sodium 149 H Potassium Chloride 108.0 H Carbon Dioxide BUN 28 H Creatinine 0.6 L Glucose 144 H POC Glucose 143 H Lactic Acid Calcium Phosphorus Magnesium AST 98 H ALT 145 H Lactate Dehydrogenase CK-MB (CK-2) C-Reactive Protein NT-Pro-B Natriuret Pep Total Protein 6.0 L Albumin 2.4 L Arterial Blood Glucose Urine WBC (Auto) Urine Creatinine 12/08/19 12/08/19 12/08/19 12:08 18:11 23:53 WBC RBC Hgb Hct MCHC RDW MCV MCH Lymph % (Auto) Gordon % (Auto) Gordon # Eos # Lymph # (Auto) Gordon # (Auto) Eos # (Auto) Seg Neutrophils % Seg Neuts % (Manual) Baso # (Auto) Lymphocytes % (Manual) Monocytes % (Manual) Eosinophils % (Manual) Basophils % (Manual) Seg Neutrophils # Seg Neutrophils # Man Lymphocytes # (Manual) Monocytes # (Manual) Eosinophils # (Manual) Nucleated RBC % Basophils # (Manual) PT INR APTT Heparin Anti-Xa Level ABG pH POC ABG pO2 ABG pO2 ABG HCO3 ABG O2 Saturation ABG Base Excess POC ABG pCO2 ABG Hemoglobin ABG Oxyhemoglobin ABG Glucose Oxyhemoglobin Sodium Potassium Chloride Carbon Dioxide BUN Creatinine Glucose POC Glucose 172 H 122 H 162 H Lactic Acid Calcium Phosphorus Magnesium AST ALT Lactate Dehydrogenase CK-MB (CK-2) C-Reactive Protein NT-Pro-B Natriuret Pep Total Protein Albumin Arterial Blood Glucose Urine WBC (Auto) Urine Creatinine 12/09/19 12/09/19 12/09/19 04:03 04:03 05:53 WBC RBC Hgb 9.1 L Hct 28.9 L MCHC RDW MCV MCH Lymph % (Auto) Gordon % (Auto) Gordon # Eos # Lymph # (Auto) Gordon # (Auto) Eos # (Auto) Seg Neutrophils % Seg Neuts % (Manual) Baso # (Auto) Lymphocytes % (Manual) Monocytes % (Manual) Eosinophils % (Manual) Basophils % (Manual) Seg Neutrophils # Seg Neutrophils # Man Lymphocytes # (Manual) Monocytes # (Manual) Eosinophils # (Manual) Nucleated RBC % Basophils # (Manual) PT INR APTT Heparin Anti-Xa Level 0.15 L ABG pH POC ABG pO2 ABG pO2 ABG HCO3 ABG O2 Saturation ABG Base Excess POC ABG pCO2 ABG Hemoglobin ABG Oxyhemoglobin ABG Glucose Oxyhemoglobin Sodium Potassium Chloride Carbon Dioxide BUN Creatinine Glucose POC Glucose 124 H Lactic Acid Calcium Phosphorus Magnesium AST ALT Lactate Dehydrogenase CK-MB (CK-2) C-Reactive Protein NT-Pro-B Natriuret Pep Total Protein Albumin Arterial Blood Glucose Urine WBC (Auto) Urine Creatinine 12/09/19 12/09/19 12/10/19 09:43 12:41 00:13 WBC RBC Hgb Hct MCHC RDW MCV MCH Lymph % (Auto) Gordon % (Auto) Gordon # Eos # Lymph # (Auto) Gordon # (Auto) Eos # (Auto) Seg Neutrophils % Seg Neuts % (Manual) Baso # (Auto) Lymphocytes % (Manual) Monocytes % (Manual) Eosinophils % (Manual) Basophils % (Manual) Seg Neutrophils # Seg Neutrophils # Man Lymphocytes # (Manual) Monocytes # (Manual) Eosinophils # (Manual) Nucleated RBC % Basophils # (Manual) PT INR APTT Heparin Anti-Xa Level ABG pH POC ABG pO2 ABG pO2 ABG HCO3 ABG O2 Saturation ABG Base Excess POC ABG pCO2 ABG Hemoglobin ABG Oxyhemoglobin ABG Glucose Oxyhemoglobin Sodium Potassium Chloride Carbon Dioxide BUN 25 H Creatinine 0.6 L Glucose 131 H POC Glucose 109 H 120 H Lactic Acid Calcium Phosphorus Magnesium AST ALT Lactate Dehydrogenase CK-MB (CK-2) C-Reactive Protein NT-Pro-B Natriuret Pep Total Protein Albumin Arterial Blood Glucose Urine WBC (Auto) Urine Creatinine 12/10/19 12/10/19 12/10/19 04:14 04:14 12:00 WBC 13.3 H RBC 3.34 L Hgb 9.6 L Hct 30.4 L MCHC RDW 15.4 H MCV MCH Lymph % (Auto) Gordon % (Auto) Gordon # Eos # Lymph # (Auto) Gordon # (Auto) Eos # (Auto) Seg Neutrophils % Seg Neuts % (Manual) 75.0 H Baso # (Auto) Lymphocytes % (Manual) 13.0 L Monocytes % (Manual) 8.0 H Eosinophils % (Manual) Basophils % (Manual) 2.0 H Seg Neutrophils # Seg Neutrophils # Man 10.0 H Lymphocytes # (Manual) Monocytes # (Manual) 1.1 H Eosinophils # (Manual) Nucleated RBC % Basophils # (Manual) 0.3 H PT INR APTT Heparin Anti-Xa Level ABG pH POC ABG pO2 ABG pO2 ABG HCO3 ABG O2 Saturation ABG Base Excess POC ABG pCO2 ABG Hemoglobin ABG Oxyhemoglobin ABG Glucose Oxyhemoglobin Sodium 147 H Potassium Chloride 108.3 H Carbon Dioxide BUN 21 H Creatinine 0.6 L Glucose 104 H POC Glucose 133 H Lactic Acid Calcium Phosphorus Magnesium AST ALT Lactate Dehydrogenase CK-MB (CK-2) C-Reactive Protein NT-Pro-B Natriuret Pep Total Protein Albumin Arterial Blood Glucose Urine WBC (Auto) Urine Creatinine 12/10/19 12/10/19 12/11/19 18:44 21:20 00:08 WBC 14.9 H RBC 3.36 L Hgb 9.6 L Hct 30.5 L MCHC RDW 15.4 H MCV MCH Lymph % (Auto) Gordon % (Auto) Gordon # Eos # Lymph # (Auto) Gordon # (Auto) Eos # (Auto) Seg Neutrophils % Seg Neuts % (Manual) Baso # (Auto) Lymphocytes % (Manual) Monocytes % (Manual) Eosinophils % (Manual) Basophils % (Manual) Seg Neutrophils # Seg Neutrophils # Man Lymphocytes # (Manual) Monocytes # (Manual) Eosinophils # (Manual) Nucleated RBC % Basophils # (Manual) PT INR APTT Heparin Anti-Xa Level ABG pH POC ABG pO2 ABG pO2 ABG HCO3 ABG O2 Saturation ABG Base Excess POC ABG pCO2 ABG Hemoglobin ABG Oxyhemoglobin ABG Glucose Oxyhemoglobin Sodium Potassium Chloride Carbon Dioxide BUN Creatinine Glucose POC Glucose 119 H 134 H Lactic Acid Calcium Phosphorus Magnesium AST ALT Lactate Dehydrogenase CK-MB (CK-2) C-Reactive Protein NT-Pro-B Natriuret Pep Total Protein Albumin Arterial Blood Glucose Urine WBC (Auto) Urine Creatinine 12/11/19 12/11/19 12/11/19 03:54 07:28 08:36 WBC 11.9 H RBC 3.25 L Hgb 9.6 L Hct 29.2 L MCHC RDW 15.7 H MCV MCH Lymph % (Auto) Gordon % (Auto) Gordon # Eos # Lymph # (Auto) Gordon # (Auto) Eos # (Auto) Seg Neutrophils % Seg Neuts % (Manual) Baso # (Auto) Lymphocytes % (Manual) Monocytes % (Manual) Eosinophils % (Manual) Basophils % (Manual) Seg Neutrophils # Seg Neutrophils # Man Lymphocytes # (Manual) Monocytes # (Manual) Eosinophils # (Manual) Nucleated RBC % Basophils # (Manual) PT INR APTT Heparin Anti-Xa Level 0.10 L 0.16 L ABG pH POC ABG pO2 ABG pO2 ABG HCO3 ABG O2 Saturation ABG Base Excess POC ABG pCO2 ABG Hemoglobin ABG Oxyhemoglobin ABG Glucose Oxyhemoglobin Sodium Potassium Chloride Carbon Dioxide BUN Creatinine Glucose POC Glucose Lactic Acid Calcium Phosphorus Magnesium AST ALT Lactate Dehydrogenase CK-MB (CK-2) C-Reactive Protein NT-Pro-B Natriuret Pep Total Protein Albumin Arterial Blood Glucose Urine WBC (Auto) Urine Creatinine 12/11/19 12/11/19 12/11/19 08:36 11:45 17:15 WBC RBC Hgb Hct MCHC RDW MCV MCH Lymph % (Auto) Gordon % (Auto) Gordon # Eos # Lymph # (Auto) Gordon # (Auto) Eos # (Auto) Seg Neutrophils % Seg Neuts % (Manual) Baso # (Auto) Lymphocytes % (Manual) Monocytes % (Manual) Eosinophils % (Manual) Basophils % (Manual) Seg Neutrophils # Seg Neutrophils # Man Lymphocytes # (Manual) Monocytes # (Manual) Eosinophils # (Manual) Nucleated RBC % Basophils # (Manual) PT INR APTT Heparin Anti-Xa Level ABG pH POC ABG pO2 ABG pO2 ABG HCO3 ABG O2 Saturation ABG Base Excess POC ABG pCO2 ABG Hemoglobin ABG Oxyhemoglobin ABG Glucose Oxyhemoglobin Sodium Potassium Chloride Carbon Dioxide BUN Creatinine 0.5 L Glucose 128 H POC Glucose 136 H 109 H Lactic Acid Calcium Phosphorus Magnesium AST ALT Lactate Dehydrogenase CK-MB (CK-2) C-Reactive Protein NT-Pro-B Natriuret Pep Total Protein Albumin Arterial Blood Glucose Urine WBC (Auto) Urine Creatinine 12/12/19 12/12/19 12/12/19 00:03 05:53 05:53 WBC RBC Hgb 8.8 L Hct 27.6 L MCHC RDW MCV MCH Lymph % (Auto) Gordon % (Auto) Gordon # Eos # Lymph # (Auto) Gordon # (Auto) Eos # (Auto) Seg Neutrophils % Seg Neuts % (Manual) Baso # (Auto) Lymphocytes % (Manual) Monocytes % (Manual) Eosinophils % (Manual) Basophils % (Manual) Seg Neutrophils # Seg Neutrophils # Man Lymphocytes # (Manual) Monocytes # (Manual) Eosinophils # (Manual) Nucleated RBC % Basophils # (Manual) PT INR APTT Heparin Anti-Xa Level 0.22 L ABG pH POC ABG pO2 ABG pO2 ABG HCO3 ABG O2 Saturation ABG Base Excess POC ABG pCO2 ABG Hemoglobin ABG Oxyhemoglobin ABG Glucose Oxyhemoglobin Sodium Potassium Chloride Carbon Dioxide BUN Creatinine Glucose POC Glucose 116 H Lactic Acid Calcium Phosphorus Magnesium AST ALT Lactate Dehydrogenase CK-MB (CK-2) C-Reactive Protein NT-Pro-B Natriuret Pep Total Protein Albumin Arterial Blood Glucose Urine WBC (Auto) Urine Creatinine 12/12/19 12/12/19 12/12/19 09:38 12:18 17:44 WBC RBC Hgb Hct MCHC RDW MCV MCH Lymph % (Auto) Gordon % (Auto) Gordon # Eos # Lymph # (Auto) Gordon # (Auto) Eos # (Auto) Seg Neutrophils % Seg Neuts % (Manual) Baso # (Auto) Lymphocytes % (Manual) Monocytes % (Manual) Eosinophils % (Manual) Basophils % (Manual) Seg Neutrophils # Seg Neutrophils # Man Lymphocytes # (Manual) Monocytes # (Manual) Eosinophils # (Manual) Nucleated RBC % Basophils # (Manual) PT INR APTT Heparin Anti-Xa Level ABG pH POC ABG pO2 ABG pO2 ABG HCO3 ABG O2 Saturation ABG Base Excess POC ABG pCO2 ABG Hemoglobin ABG Oxyhemoglobin ABG Glucose Oxyhemoglobin Sodium Potassium Chloride Carbon Dioxide BUN Creatinine Glucose POC Glucose 115 H 146 H 146 H Lactic Acid Calcium Phosphorus Magnesium AST ALT Lactate Dehydrogenase CK-MB (CK-2) C-Reactive Protein NT-Pro-B Natriuret Pep Total Protein Albumin Arterial Blood Glucose Urine WBC (Auto) Urine Creatinine 12/12/19 12/13/19 12/13/19 23:33 05:32 05:32 WBC 13.1 H RBC 3.27 L Hgb 9.5 L Hct 29.3 L MCHC RDW 15.6 H MCV MCH Lymph % (Auto) Gordon % (Auto) Gordon # Eos # Lymph # (Auto) Gordon # (Auto) Eos # (Auto) Seg Neutrophils % Seg Neuts % (Manual) 74.0 H Baso # (Auto) Lymphocytes % (Manual) 8.0 L Monocytes % (Manual) 9.0 H Eosinophils % (Manual) 5.0 H Basophils % (Manual) Seg Neutrophils # Seg Neutrophils # Man 9.7 H Lymphocytes # (Manual) 1.0 L Monocytes # (Manual) 1.2 H Eosinophils # (Manual) 0.7 H Nucleated RBC % Basophils # (Manual) PT INR APTT Heparin Anti-Xa Level 0.20 L ABG pH POC ABG pO2 ABG pO2 ABG HCO3 ABG O2 Saturation ABG Base Excess POC ABG pCO2 ABG Hemoglobin ABG Oxyhemoglobin ABG Glucose Oxyhemoglobin Sodium Potassium Chloride Carbon Dioxide BUN Creatinine Glucose POC Glucose 126 H Lactic Acid Calcium Phosphorus Magnesium AST ALT Lactate Dehydrogenase CK-MB (CK-2) C-Reactive Protein NT-Pro-B Natriuret Pep Total Protein Albumin Arterial Blood Glucose Urine WBC (Auto) Urine Creatinine 12/13/19 12/13/19 12/13/19 05:32 05:46 11:57 WBC RBC Hgb Hct MCHC RDW MCV MCH Lymph % (Auto) Gordon % (Auto) Gordon # Eos # Lymph # (Auto) Gordon # (Auto) Eos # (Auto) Seg Neutrophils % Seg Neuts % (Manual) Baso # (Auto) Lymphocytes % (Manual) Monocytes % (Manual) Eosinophils % (Manual) Basophils % (Manual) Seg Neutrophils # Seg Neutrophils # Man Lymphocytes # (Manual) Monocytes # (Manual) Eosinophils # (Manual) Nucleated RBC % Basophils # (Manual) PT INR APTT Heparin Anti-Xa Level ABG pH POC ABG pO2 ABG pO2 ABG HCO3 ABG O2 Saturation ABG Base Excess POC ABG pCO2 ABG Hemoglobin ABG Oxyhemoglobin ABG Glucose Oxyhemoglobin Sodium Potassium Chloride Carbon Dioxide 31 H BUN Creatinine 0.6 L Glucose 114 H POC Glucose 118 H 133 H Lactic Acid Calcium Phosphorus Magnesium AST ALT Lactate Dehydrogenase CK-MB (CK-2) C-Reactive Protein NT-Pro-B Natriuret Pep Total Protein Albumin Arterial Blood Glucose Urine WBC (Auto) Urine Creatinine 12/13/19 12/13/19 12/14/19 17:44 23:46 05:32 WBC RBC Hgb Hct MCHC RDW MCV MCH Lymph % (Auto) Gordon % (Auto) Gordon # Eos # Lymph # (Auto) Gordon # (Auto) Eos # (Auto) Seg Neutrophils % Seg Neuts % (Manual) Baso # (Auto) Lymphocytes % (Manual) Monocytes % (Manual) Eosinophils % (Manual) Basophils % (Manual) Seg Neutrophils # Seg Neutrophils # Man Lymphocytes # (Manual) Monocytes # (Manual) Eosinophils # (Manual) Nucleated RBC % Basophils # (Manual) PT INR APTT Heparin Anti-Xa Level ABG pH POC ABG pO2 ABG pO2 ABG HCO3 ABG O2 Saturation ABG Base Excess POC ABG pCO2 ABG Hemoglobin ABG Oxyhemoglobin ABG Glucose Oxyhemoglobin Sodium Potassium Chloride Carbon Dioxide BUN Creatinine Glucose POC Glucose 161 H 126 H 139 H Lactic Acid Calcium Phosphorus Magnesium AST ALT Lactate Dehydrogenase CK-MB (CK-2) C-Reactive Protein NT-Pro-B Natriuret Pep Total Protein Albumin Arterial Blood Glucose Urine WBC (Auto) Urine Creatinine 12/14/19 12/14/19 12/14/19 06:03 06:03 09:37 WBC RBC Hgb 9.6 L Hct 30.4 L MCHC RDW MCV MCH Lymph % (Auto) Gordon % (Auto) Gordon # Eos # Lymph # (Auto) Gordon # (Auto) Eos # (Auto) Seg Neutrophils % Seg Neuts % (Manual) Baso # (Auto) Lymphocytes % (Manual) Monocytes % (Manual) Eosinophils % (Manual) Basophils % (Manual) Seg Neutrophils # Seg Neutrophils # Man Lymphocytes # (Manual) Monocytes # (Manual) Eosinophils # (Manual) Nucleated RBC % Basophils # (Manual) PT INR APTT Heparin Anti-Xa Level 0.24 L ABG pH POC ABG pO2 ABG pO2 ABG HCO3 ABG O2 Saturation ABG Base Excess POC ABG pCO2 ABG Hemoglobin ABG Oxyhemoglobin ABG Glucose Oxyhemoglobin Sodium Potassium Chloride Carbon Dioxide BUN Creatinine 0.6 L Glucose 162 H POC Glucose Lactic Acid Calcium Phosphorus Magnesium AST 71 H ALT 118 H Lactate Dehydrogenase CK-MB (CK-2) C-Reactive Protein NT-Pro-B Natriuret Pep Total Protein 6.2 L Albumin 2.3 L Arterial Blood Glucose Urine WBC (Auto) Urine Creatinine 12/14/19 12/14/19 12/15/19 12:06 18:18 00:19 WBC RBC Hgb Hct MCHC RDW MCV MCH Lymph % (Auto) Gordon % (Auto) Gordon # Eos # Lymph # (Auto) Gordon # (Auto) Eos # (Auto) Seg Neutrophils % Seg Neuts % (Manual) Baso # (Auto) Lymphocytes % (Manual) Monocytes % (Manual) Eosinophils % (Manual) Basophils % (Manual) Seg Neutrophils # Seg Neutrophils # Man Lymphocytes # (Manual) Monocytes # (Manual) Eosinophils # (Manual) Nucleated RBC % Basophils # (Manual) PT INR APTT Heparin Anti-Xa Level ABG pH POC ABG pO2 ABG pO2 ABG HCO3 ABG O2 Saturation ABG Base Excess POC ABG pCO2 ABG Hemoglobin ABG Oxyhemoglobin ABG Glucose Oxyhemoglobin Sodium Potassium Chloride Carbon Dioxide BUN Creatinine Glucose POC Glucose 147 H 166 H 123 H Lactic Acid Calcium Phosphorus Magnesium AST ALT Lactate Dehydrogenase CK-MB (CK-2) C-Reactive Protein NT-Pro-B Natriuret Pep Total Protein Albumin Arterial Blood Glucose Urine WBC (Auto) Urine Creatinine 12/15/19 12/15/19 12/15/19 05:28 05:29 05:29 WBC 14.9 H RBC 3.19 L Hgb 9.1 L Hct 28.7 L MCHC RDW 16.0 H MCV MCH Lymph % (Auto) Gordon % (Auto) Gordon # Eos # Lymph # (Auto) Gordon # (Auto) Eos # (Auto) Seg Neutrophils % Seg Neuts % (Manual) Baso # (Auto) Lymphocytes % (Manual) Monocytes % (Manual) Eosinophils % (Manual) Basophils % (Manual) Seg Neutrophils # Seg Neutrophils # Man Lymphocytes # (Manual) Monocytes # (Manual) Eosinophils # (Manual) Nucleated RBC % Basophils # (Manual) PT INR APTT Heparin Anti-Xa Level 0.19 L ABG pH POC ABG pO2 ABG pO2 ABG HCO3 ABG O2 Saturation ABG Base Excess POC ABG pCO2 ABG Hemoglobin ABG Oxyhemoglobin ABG Glucose Oxyhemoglobin Sodium Potassium Chloride Carbon Dioxide BUN Creatinine 0.6 L Glucose 110 H POC Glucose Lactic Acid Calcium Phosphorus Magnesium AST ALT Lactate Dehydrogenase CK-MB (CK-2) C-Reactive Protein NT-Pro-B Natriuret Pep Total Protein Albumin Arterial Blood Glucose Urine WBC (Auto) Urine Creatinine 12/15/19 12/15/19 12/15/19 05:53 11:50 17:26 WBC RBC Hgb Hct MCHC RDW MCV MCH Lymph % (Auto) Gordon % (Auto) Gordon # Eos # Lymph # (Auto) Gordon # (Auto) Eos # (Auto) Seg Neutrophils % Seg Neuts % (Manual) Baso # (Auto) Lymphocytes % (Manual) Monocytes % (Manual) Eosinophils % (Manual) Basophils % (Manual) Seg Neutrophils # Seg Neutrophils # Man Lymphocytes # (Manual) Monocytes # (Manual) Eosinophils # (Manual) Nucleated RBC % Basophils # (Manual) PT INR APTT Heparin Anti-Xa Level ABG pH POC ABG pO2 ABG pO2 ABG HCO3 ABG O2 Saturation ABG Base Excess POC ABG pCO2 ABG Hemoglobin ABG Oxyhemoglobin ABG Glucose Oxyhemoglobin Sodium Potassium Chloride Carbon Dioxide BUN Creatinine Glucose POC Glucose 119 H 132 H 128 H Lactic Acid Calcium Phosphorus Magnesium AST ALT Lactate Dehydrogenase CK-MB (CK-2) C-Reactive Protein NT-Pro-B Natriuret Pep Total Protein Albumin Arterial Blood Glucose Urine WBC (Auto) Urine Creatinine 12/15/19 12/16/19 12/16/19 23:11 05:30 05:46 WBC RBC Hgb 8.8 L Hct 27.9 L MCHC RDW MCV MCH Lymph % (Auto) Gordon % (Auto) Gordon # Eos # Lymph # (Auto) Gordon # (Auto) Eos # (Auto) Seg Neutrophils % Seg Neuts % (Manual) Baso # (Auto) Lymphocytes % (Manual) Monocytes % (Manual) Eosinophils % (Manual) Basophils % (Manual) Seg Neutrophils # Seg Neutrophils # Man Lymphocytes # (Manual) Monocytes # (Manual) Eosinophils # (Manual) Nucleated RBC % Basophils # (Manual) PT INR APTT Heparin Anti-Xa Level ABG pH POC ABG pO2 ABG pO2 ABG HCO3 ABG O2 Saturation ABG Base Excess POC ABG pCO2 ABG Hemoglobin ABG Oxyhemoglobin ABG Glucose Oxyhemoglobin Sodium Potassium Chloride Carbon Dioxide BUN Creatinine Glucose POC Glucose 150 H 134 H Lactic Acid Calcium Phosphorus Magnesium AST ALT Lactate Dehydrogenase CK-MB (CK-2) C-Reactive Protein NT-Pro-B Natriuret Pep Total Protein Albumin Arterial Blood Glucose Urine WBC (Auto) Urine Creatinine 12/16/19 12/16/19 12/16/19 05:46 05:46 11:44 WBC RBC Hgb Hct MCHC RDW MCV MCH Lymph % (Auto) Gordon % (Auto) Gordon # Eos # Lymph # (Auto) Gordon # (Auto) Eos # (Auto) Seg Neutrophils % Seg Neuts % (Manual) Baso # (Auto) Lymphocytes % (Manual) Monocytes % (Manual) Eosinophils % (Manual) Basophils % (Manual) Seg Neutrophils # Seg Neutrophils # Man Lymphocytes # (Manual) Monocytes # (Manual) Eosinophils # (Manual) Nucleated RBC % Basophils # (Manual) PT INR APTT Heparin Anti-Xa Level 0.20 L ABG pH POC ABG pO2 ABG pO2 ABG HCO3 ABG O2 Saturation ABG Base Excess POC ABG pCO2 ABG Hemoglobin ABG Oxyhemoglobin ABG Glucose Oxyhemoglobin Sodium Potassium Chloride Carbon Dioxide 31 H BUN Creatinine 0.5 L Glucose 147 H POC Glucose 164 H Lactic Acid Calcium Phosphorus Magnesium AST ALT Lactate Dehydrogenase CK-MB (CK-2) C-Reactive Protein NT-Pro-B Natriuret Pep Total Protein Albumin Arterial Blood Glucose Urine WBC (Auto) Urine Creatinine 12/16/19 12/16/19 12/17/19 17:17 23:49 05:30 WBC 13.9 H RBC 3.27 L Hgb 9.4 L Hct 29.2 L MCHC RDW 16.0 H MCV MCH Lymph % (Auto) Gordon % (Auto) 8.8 H Gordon # Eos # Lymph # (Auto) Gordon # (Auto) 1.2 H Eos # (Auto) 0.5 H Seg Neutrophils % 70.5 H Seg Neuts % (Manual) Baso # (Auto) 0.2 H Lymphocytes % (Manual) Monocytes % (Manual) Eosinophils % (Manual) Basophils % (Manual) Seg Neutrophils # 9.8 H Seg Neutrophils # Man Lymphocytes # (Manual) Monocytes # (Manual) Eosinophils # (Manual) Nucleated RBC % Basophils # (Manual) PT INR APTT Heparin Anti-Xa Level ABG pH POC ABG pO2 ABG pO2 ABG HCO3 ABG O2 Saturation ABG Base Excess POC ABG pCO2 ABG Hemoglobin ABG Oxyhemoglobin ABG Glucose Oxyhemoglobin Sodium Potassium Chloride Carbon Dioxide BUN Creatinine Glucose POC Glucose 162 H 144 H Lactic Acid Calcium Phosphorus Magnesium AST ALT Lactate Dehydrogenase CK-MB (CK-2) C-Reactive Protein NT-Pro-B Natriuret Pep Total Protein Albumin Arterial Blood Glucose Urine WBC (Auto) Urine Creatinine 12/17/19 12/17/19 12/17/19 05:30 06:06 11:50 WBC RBC Hgb Hct MCHC RDW MCV MCH Lymph % (Auto) Gordon % (Auto) Gordon # Eos # Lymph # (Auto) Gordon # (Auto) Eos # (Auto) Seg Neutrophils % Seg Neuts % (Manual) Baso # (Auto) Lymphocytes % (Manual) Monocytes % (Manual) Eosinophils % (Manual) Basophils % (Manual) Seg Neutrophils # Seg Neutrophils # Man Lymphocytes # (Manual) Monocytes # (Manual) Eosinophils # (Manual) Nucleated RBC % Basophils # (Manual) PT INR APTT Heparin Anti-Xa Level ABG pH POC ABG pO2 ABG pO2 ABG HCO3 ABG O2 Saturation ABG Base Excess POC ABG pCO2 ABG Hemoglobin ABG Oxyhemoglobin ABG Glucose Oxyhemoglobin Sodium Potassium Chloride 97.4 L Carbon Dioxide 32 H BUN Creatinine 0.5 L Glucose 135 H POC Glucose 151 H 140 H Lactic Acid Calcium Phosphorus Magnesium AST ALT Lactate Dehydrogenase CK-MB (CK-2) C-Reactive Protein NT-Pro-B Natriuret Pep Total Protein Albumin Arterial Blood Glucose Urine WBC (Auto) Urine Creatinine 12/17/19 12/17/19 12/18/19 17:50 23:46 05:17 WBC RBC Hgb 8.8 L Hct 28.0 L MCHC RDW MCV MCH Lymph % (Auto) Gordon % (Auto) Gordon # Eos # Lymph # (Auto) Gordon # (Auto) Eos # (Auto) Seg Neutrophils % Seg Neuts % (Manual) Baso # (Auto) Lymphocytes % (Manual) Monocytes % (Manual) Eosinophils % (Manual) Basophils % (Manual) Seg Neutrophils # Seg Neutrophils # Man Lymphocytes # (Manual) Monocytes # (Manual) Eosinophils # (Manual) Nucleated RBC % Basophils # (Manual) PT INR APTT Heparin Anti-Xa Level ABG pH POC ABG pO2 ABG pO2 ABG HCO3 ABG O2 Saturation ABG Base Excess POC ABG pCO2 ABG Hemoglobin ABG Oxyhemoglobin ABG Glucose Oxyhemoglobin Sodium Potassium Chloride Carbon Dioxide BUN Creatinine Glucose POC Glucose 158 H 150 H Lactic Acid Calcium Phosphorus Magnesium AST ALT Lactate Dehydrogenase CK-MB (CK-2) C-Reactive Protein NT-Pro-B Natriuret Pep Total Protein Albumin Arterial Blood Glucose Urine WBC (Auto) Urine Creatinine 12/18/19 12/18/19 12/18/19 05:17 05:49 11:12 WBC RBC Hgb Hct MCHC RDW MCV MCH Lymph % (Auto) Gordon % (Auto) Gordon # Eos # Lymph # (Auto) Gordon # (Auto) Eos # (Auto) Seg Neutrophils % Seg Neuts % (Manual) Baso # (Auto) Lymphocytes % (Manual) Monocytes % (Manual) Eosinophils % (Manual) Basophils % (Manual) Seg Neutrophils # Seg Neutrophils # Man Lymphocytes # (Manual) Monocytes # (Manual) Eosinophils # (Manual) Nucleated RBC % Basophils # (Manual) PT INR APTT Heparin Anti-Xa Level 0.16 L ABG pH POC ABG pO2 ABG pO2 ABG HCO3 ABG O2 Saturation ABG Base Excess POC ABG pCO2 ABG Hemoglobin ABG Oxyhemoglobin ABG Glucose Oxyhemoglobin Sodium Potassium Chloride Carbon Dioxide BUN Creatinine Glucose POC Glucose 127 H 191 H Lactic Acid Calcium Phosphorus Magnesium AST ALT Lactate Dehydrogenase CK-MB (CK-2) C-Reactive Protein NT-Pro-B Natriuret Pep Total Protein Albumin Arterial Blood Glucose Urine WBC (Auto) Urine Creatinine 12/18/19 12/18/19 12/19/19 17:03 20:16 00:08 WBC RBC Hgb Hct MCHC RDW MCV MCH Lymph % (Auto) Gordon % (Auto) Gordon # Eos # Lymph # (Auto) Gordon # (Auto) Eos # (Auto) Seg Neutrophils % Seg Neuts % (Manual) Baso # (Auto) Lymphocytes % (Manual) Monocytes % (Manual) Eosinophils % (Manual) Basophils % (Manual) Seg Neutrophils # Seg Neutrophils # Man Lymphocytes # (Manual) Monocytes # (Manual) Eosinophils # (Manual) Nucleated RBC % Basophils # (Manual) PT INR APTT Heparin Anti-Xa Level ABG pH POC ABG pO2 ABG pO2 ABG HCO3 ABG O2 Saturation ABG Base Excess POC ABG pCO2 ABG Hemoglobin ABG Oxyhemoglobin ABG Glucose Oxyhemoglobin Sodium Potassium Chloride Carbon Dioxide BUN Creatinine Glucose POC Glucose 133 H 128 H 129 H Lactic Acid Calcium Phosphorus Magnesium AST ALT Lactate Dehydrogenase CK-MB (CK-2) C-Reactive Protein NT-Pro-B Natriuret Pep Total Protein Albumin Arterial Blood Glucose Urine WBC (Auto) Urine Creatinine 12/19/19 12/19/19 12/19/19 04:45 04:45 05:35 WBC RBC Hgb Hct MCHC RDW MCV MCH Lymph % (Auto) Gordon % (Auto) Gordon # Eos # Lymph # (Auto) Gordon # (Auto) Eos # (Auto) Seg Neutrophils % Seg Neuts % (Manual) Baso # (Auto) Lymphocytes % (Manual) Monocytes % (Manual) Eosinophils % (Manual) Basophils % (Manual) Seg Neutrophils # Seg Neutrophils # Man Lymphocytes # (Manual) Monocytes # (Manual) Eosinophils # (Manual) Nucleated RBC % Basophils # (Manual) PT INR APTT Heparin Anti-Xa Level 0.17 L ABG pH POC ABG pO2 ABG pO2 ABG HCO3 ABG O2 Saturation ABG Base Excess POC ABG pCO2 ABG Hemoglobin ABG Oxyhemoglobin ABG Glucose Oxyhemoglobin Sodium Potassium Chloride Carbon Dioxide BUN Creatinine Glucose POC Glucose 120 H Lactic Acid Calcium Phosphorus Magnesium AST ALT Lactate Dehydrogenase 228 H CK-MB (CK-2) C-Reactive Protein NT-Pro-B Natriuret Pep Total Protein Albumin Arterial Blood Glucose Urine WBC (Auto) Urine Creatinine 12/19/19 12/19/19 12/19/19 09:20 11:32 11:32 WBC 14.6 H RBC 3.08 L Hgb 9.0 L Hct 26.8 L MCHC RDW 15.9 H MCV MCH Lymph % (Auto) Gordon % (Auto) Gordon # Eos # Lymph # (Auto) Gordon # (Auto) Eos # (Auto) Seg Neutrophils % Seg Neuts % (Manual) 82.0 H Baso # (Auto) Lymphocytes % (Manual) 10.0 L Monocytes % (Manual) Eosinophils % (Manual) Basophils % (Manual) Seg Neutrophils # Seg Neutrophils # Man 12.0 H Lymphocytes # (Manual) Monocytes # (Manual) 0.9 H Eosinophils # (Manual) Nucleated RBC % 1.0 H Basophils # (Manual) PT INR APTT Heparin Anti-Xa Level ABG pH 7.451 H POC ABG pO2 ABG pO2 62.6 L ABG HCO3 33.2 H ABG O2 Saturation 93.8 L ABG Base Excess 8.3 H POC ABG pCO2 ABG Hemoglobin 8.3 L ABG Oxyhemoglobin ABG Glucose Oxyhemoglobin 91.9 L Sodium Potassium Chloride 95.0 L Carbon Dioxide 33 H BUN 22 H Creatinine 0.6 L Glucose 150 H POC Glucose Lactic Acid Calcium Phosphorus Magnesium AST ALT Lactate Dehydrogenase CK-MB (CK-2) C-Reactive Protein NT-Pro-B Natriuret Pep Total Protein 6.2 L Albumin 2.4 L Arterial Blood Glucose Urine WBC (Auto) Urine Creatinine 12/19/19 12/19/19 12/20/19 11:56 18:17 00:09 WBC RBC Hgb Hct MCHC RDW MCV MCH Lymph % (Auto) Gordon % (Auto) Gordon # Eos # Lymph # (Auto) Gordon # (Auto) Eos # (Auto) Seg Neutrophils % Seg Neuts % (Manual) Baso # (Auto) Lymphocytes % (Manual) Monocytes % (Manual) Eosinophils % (Manual) Basophils % (Manual) Seg Neutrophils # Seg Neutrophils # Man Lymphocytes # (Manual) Monocytes # (Manual) Eosinophils # (Manual) Nucleated RBC % Basophils # (Manual) PT INR APTT Heparin Anti-Xa Level ABG pH POC ABG pO2 ABG pO2 ABG HCO3 ABG O2 Saturation ABG Base Excess POC ABG pCO2 ABG Hemoglobin ABG Oxyhemoglobin ABG Glucose Oxyhemoglobin Sodium Potassium Chloride Carbon Dioxide BUN Creatinine Glucose POC Glucose 156 H 156 H 155 H Lactic Acid Calcium Phosphorus Magnesium AST ALT Lactate Dehydrogenase CK-MB (CK-2) C-Reactive Protein NT-Pro-B Natriuret Pep Total Protein Albumin Arterial Blood Glucose Urine WBC (Auto) Urine Creatinine 12/20/19 12/20/19 12/20/19 05:26 06:02 18:17 WBC RBC Hgb Hct MCHC RDW MCV MCH Lymph % (Auto) Gordon % (Auto) Gordon # Eos # Lymph # (Auto) Gordon # (Auto) Eos # (Auto) Seg Neutrophils % Seg Neuts % (Manual) Baso # (Auto) Lymphocytes % (Manual) Monocytes % (Manual) Eosinophils % (Manual) Basophils % (Manual) Seg Neutrophils # Seg Neutrophils # Man Lymphocytes # (Manual) Monocytes # (Manual) Eosinophils # (Manual) Nucleated RBC % Basophils # (Manual) PT INR APTT Heparin Anti-Xa Level 0.19 L ABG pH POC ABG pO2 ABG pO2 ABG HCO3 ABG O2 Saturation ABG Base Excess POC ABG pCO2 ABG Hemoglobin ABG Oxyhemoglobin ABG Glucose Oxyhemoglobin Sodium Potassium Chloride Carbon Dioxide BUN Creatinine Glucose POC Glucose 137 H 128 H Lactic Acid Calcium Phosphorus Magnesium AST ALT Lactate Dehydrogenase CK-MB (CK-2) C-Reactive Protein NT-Pro-B Natriuret Pep Total Protein Albumin Arterial Blood Glucose Urine WBC (Auto) Urine Creatinine 12/20/19 12/21/19 12/21/19 23:34 05:31 05:31 WBC 12.7 H RBC 3.09 L Hgb 8.9 L Hct 27.4 L MCHC RDW 15.8 H MCV MCH Lymph % (Auto) 12.1 L Gordon % (Auto) 7.8 H Gordon # Eos # Lymph # (Auto) Gordon # (Auto) 1.0 H Eos # (Auto) Seg Neutrophils % 77.1 H Seg Neuts % (Manual) Baso # (Auto) Lymphocytes % (Manual) Monocytes % (Manual) Eosinophils % (Manual) Basophils % (Manual) Seg Neutrophils # 9.8 H Seg Neutrophils # Man Lymphocytes # (Manual) Monocytes # (Manual) Eosinophils # (Manual) Nucleated RBC % Basophils # (Manual) PT INR APTT Heparin Anti-Xa Level ABG pH POC ABG pO2 ABG pO2 ABG HCO3 ABG O2 Saturation ABG Base Excess POC ABG pCO2 ABG Hemoglobin ABG Oxyhemoglobin ABG Glucose Oxyhemoglobin Sodium Potassium Chloride 96.9 L Carbon Dioxide 37 H BUN 27 H Creatinine 0.7 L Glucose 140 H POC Glucose 145 H Lactic Acid Calcium Phosphorus Magnesium AST ALT Lactate Dehydrogenase CK-MB (CK-2) C-Reactive Protein NT-Pro-B Natriuret Pep Total Protein Albumin Arterial Blood Glucose Urine WBC (Auto) Urine Creatinine 12/21/19 12/21/19 12/21/19 05:38 10:13 11:51 WBC RBC Hgb Hct MCHC RDW MCV MCH Lymph % (Auto) Gordon % (Auto) Gordon # Eos # Lymph # (Auto) Gordon # (Auto) Eos # (Auto) Seg Neutrophils % Seg Neuts % (Manual) Baso # (Auto) Lymphocytes % (Manual) Monocytes % (Manual) Eosinophils % (Manual) Basophils % (Manual) Seg Neutrophils # Seg Neutrophils # Man Lymphocytes # (Manual) Monocytes # (Manual) Eosinophils # (Manual) Nucleated RBC % Basophils # (Manual) PT INR APTT 23.9 L Heparin Anti-Xa Level < 0.10 L ABG pH POC ABG pO2 ABG pO2 ABG HCO3 ABG O2 Saturation ABG Base Excess POC ABG pCO2 ABG Hemoglobin ABG Oxyhemoglobin ABG Glucose Oxyhemoglobin Sodium Potassium Chloride Carbon Dioxide BUN Creatinine Glucose POC Glucose 151 H 145 H Lactic Acid Calcium Phosphorus Magnesium AST ALT Lactate Dehydrogenase CK-MB (CK-2) C-Reactive Protein NT-Pro-B Natriuret Pep Total Protein Albumin Arterial Blood Glucose Urine WBC (Auto) Urine Creatinine 12/21/19 12/22/19 12/22/19 17:16 00:01 01:33 WBC RBC Hgb Hct MCHC RDW MCV MCH Lymph % (Auto) Gordon % (Auto) Gordon # Eos # Lymph # (Auto) Gordon # (Auto) Eos # (Auto) Seg Neutrophils % Seg Neuts % (Manual) Baso # (Auto) Lymphocytes % (Manual) Monocytes % (Manual) Eosinophils % (Manual) Basophils % (Manual) Seg Neutrophils # Seg Neutrophils # Man Lymphocytes # (Manual) Monocytes # (Manual) Eosinophils # (Manual) Nucleated RBC % Basophils # (Manual) PT INR APTT Heparin Anti-Xa Level 0.10 L ABG pH POC ABG pO2 ABG pO2 ABG HCO3 ABG O2 Saturation ABG Base Excess POC ABG pCO2 ABG Hemoglobin ABG Oxyhemoglobin ABG Glucose Oxyhemoglobin Sodium Potassium Chloride Carbon Dioxide BUN Creatinine Glucose POC Glucose 167 H 179 H Lactic Acid Calcium Phosphorus Magnesium AST ALT Lactate Dehydrogenase CK-MB (CK-2) C-Reactive Protein NT-Pro-B Natriuret Pep Total Protein Albumin Arterial Blood Glucose Urine WBC (Auto) Urine Creatinine 12/22/19 12/22/19 12/22/19 03:22 05:10 05:10 WBC 13.8 H RBC 3.20 L Hgb 8.9 L Hct 28.1 L MCHC RDW 15.9 H MCV MCH Lymph % (Auto) Gordon % (Auto) Gordon # Eos # Lymph # (Auto) Gordon # (Auto) Eos # (Auto) Seg Neutrophils % Seg Neuts % (Manual) Baso # (Auto) Lymphocytes % (Manual) Monocytes % (Manual) Eosinophils % (Manual) Basophils % (Manual) Seg Neutrophils # Seg Neutrophils # Man Lymphocytes # (Manual) Monocytes # (Manual) Eosinophils # (Manual) Nucleated RBC % Basophils # (Manual) PT INR APTT Heparin Anti-Xa Level ABG pH POC ABG pO2 52.3 L ABG pO2 ABG HCO3 ABG O2 Saturation ABG Base Excess POC ABG pCO2 52.9 H ABG Hemoglobin 10.7 L ABG Oxyhemoglobin 84 L ABG Glucose Oxyhemoglobin Sodium Potassium Chloride 96.6 L Carbon Dioxide BUN 25 H Creatinine 0.7 L Glucose 129 H POC Glucose Lactic Acid Calcium Phosphorus Magnesium AST ALT Lactate Dehydrogenase CK-MB (CK-2) C-Reactive Protein NT-Pro-B Natriuret Pep Total Protein Albumin Arterial Blood Glucose Urine WBC (Auto) Urine Creatinine 12/22/19 12/22/19 12/22/19 05:18 12:32 12:43 WBC RBC Hgb Hct MCHC RDW MCV MCH Lymph % (Auto) Gordon % (Auto) Gordon # Eos # Lymph # (Auto) Gordon # (Auto) Eos # (Auto) Seg Neutrophils % Seg Neuts % (Manual) Baso # (Auto) Lymphocytes % (Manual) Monocytes % (Manual) Eosinophils % (Manual) Basophils % (Manual) Seg Neutrophils # Seg Neutrophils # Man Lymphocytes # (Manual) Monocytes # (Manual) Eosinophils # (Manual) Nucleated RBC % Basophils # (Manual) PT INR APTT Heparin Anti-Xa Level 0.18 L ABG pH POC ABG pO2 ABG pO2 ABG HCO3 ABG O2 Saturation ABG Base Excess POC ABG pCO2 ABG Hemoglobin ABG Oxyhemoglobin ABG Glucose Oxyhemoglobin Sodium Potassium Chloride Carbon Dioxide BUN Creatinine Glucose POC Glucose 131 H 208 H Lactic Acid Calcium Phosphorus Magnesium AST ALT Lactate Dehydrogenase CK-MB (CK-2) C-Reactive Protein NT-Pro-B Natriuret Pep Total Protein Albumin Arterial Blood Glucose Urine WBC (Auto) Urine Creatinine 12/22/19 12/22/19 12/23/19 17:44 23:20 03:51 WBC 15.2 H RBC 3.43 L Hgb 9.6 L Hct 30.3 L MCHC RDW 15.9 H MCV MCH Lymph % (Auto) Gordon % (Auto) Gordon # Eos # Lymph # (Auto) Gordon # (Auto) Eos # (Auto) Seg Neutrophils % Seg Neuts % (Manual) Baso # (Auto) Lymphocytes % (Manual) Monocytes % (Manual) Eosinophils % (Manual) Basophils % (Manual) Seg Neutrophils # Seg Neutrophils # Man Lymphocytes # (Manual) Monocytes # (Manual) Eosinophils # (Manual) Nucleated RBC % Basophils # (Manual) PT INR APTT Heparin Anti-Xa Level ABG pH POC ABG pO2 ABG pO2 ABG HCO3 ABG O2 Saturation ABG Base Excess POC ABG pCO2 ABG Hemoglobin ABG Oxyhemoglobin ABG Glucose Oxyhemoglobin Sodium Potassium Chloride Carbon Dioxide BUN Creatinine Glucose POC Glucose 209 H 119 H Lactic Acid Calcium Phosphorus Magnesium AST ALT Lactate Dehydrogenase CK-MB (CK-2) C-Reactive Protein NT-Pro-B Natriuret Pep Total Protein Albumin Arterial Blood Glucose Urine WBC (Auto) Urine Creatinine 12/23/19 12/23/19 12/23/19 03:51 05:31 12:09 WBC RBC Hgb Hct MCHC RDW MCV MCH Lymph % (Auto) Gordon % (Auto) Gordon # Eos # Lymph # (Auto) Gordon # (Auto) Eos # (Auto) Seg Neutrophils % Seg Neuts % (Manual) Baso # (Auto) Lymphocytes % (Manual) Monocytes % (Manual) Eosinophils % (Manual) Basophils % (Manual) Seg Neutrophils # Seg Neutrophils # Man Lymphocytes # (Manual) Monocytes # (Manual) Eosinophils # (Manual) Nucleated RBC % Basophils # (Manual) PT INR APTT Heparin Anti-Xa Level ABG pH POC ABG pO2 ABG pO2 ABG HCO3 ABG O2 Saturation ABG Base Excess POC ABG pCO2 ABG Hemoglobin ABG Oxyhemoglobin ABG Glucose Oxyhemoglobin Sodium Potassium Chloride 97.2 L Carbon Dioxide 31 H BUN 23 H Creatinine 0.6 L Glucose 153 H POC Glucose 149 H 144 H Lactic Acid Calcium Phosphorus Magnesium AST ALT Lactate Dehydrogenase CK-MB (CK-2) C-Reactive Protein NT-Pro-B Natriuret Pep Total Protein Albumin Arterial Blood Glucose Urine WBC (Auto) Urine Creatinine 12/23/19 12/23/19 12/23/19 15:30 17:49 23:31 WBC RBC Hgb Hct MCHC RDW MCV MCH Lymph % (Auto) Gordon % (Auto) Gordon # Eos # Lymph # (Auto) Gordon # (Auto) Eos # (Auto) Seg Neutrophils % Seg Neuts % (Manual) Baso # (Auto) Lymphocytes % (Manual) Monocytes % (Manual) Eosinophils % (Manual) Basophils % (Manual) Seg Neutrophils # Seg Neutrophils # Man Lymphocytes # (Manual) Monocytes # (Manual) Eosinophils # (Manual) Nucleated RBC % Basophils # (Manual) PT INR APTT Heparin Anti-Xa Level 0.21 L ABG pH POC ABG pO2 ABG pO2 ABG HCO3 ABG O2 Saturation ABG Base Excess POC ABG pCO2 ABG Hemoglobin ABG Oxyhemoglobin ABG Glucose Oxyhemoglobin Sodium Potassium Chloride Carbon Dioxide BUN Creatinine Glucose POC Glucose 192 H 151 H Lactic Acid Calcium Phosphorus Magnesium AST ALT Lactate Dehydrogenase CK-MB (CK-2) C-Reactive Protein NT-Pro-B Natriuret Pep Total Protein Albumin Arterial Blood Glucose Urine WBC (Auto) Urine Creatinine 12/24/19 12/24/19 12/24/19 05:34 12:13 16:50 WBC RBC Hgb Hct MCHC RDW MCV MCH Lymph % (Auto) Gordon % (Auto) Gordon # Eos # Lymph # (Auto) Gordon # (Auto) Eos # (Auto) Seg Neutrophils % Seg Neuts % (Manual) Baso # (Auto) Lymphocytes % (Manual) Monocytes % (Manual) Eosinophils % (Manual) Basophils % (Manual) Seg Neutrophils # Seg Neutrophils # Man Lymphocytes # (Manual) Monocytes # (Manual) Eosinophils # (Manual) Nucleated RBC % Basophils # (Manual) PT INR APTT Heparin Anti-Xa Level 0.16 L ABG pH POC ABG pO2 ABG pO2 ABG HCO3 ABG O2 Saturation ABG Base Excess POC ABG pCO2 ABG Hemoglobin ABG Oxyhemoglobin ABG Glucose Oxyhemoglobin Sodium Potassium Chloride Carbon Dioxide BUN Creatinine Glucose POC Glucose 145 H 124 H Lactic Acid Calcium Phosphorus Magnesium AST ALT Lactate Dehydrogenase CK-MB (CK-2) C-Reactive Protein NT-Pro-B Natriuret Pep Total Protein Albumin Arterial Blood Glucose Urine WBC (Auto) Urine Creatinine 12/24/19 12/25/19 12/25/19 17:53 00:14 04:18 WBC 12.9 H RBC 3.30 L Hgb 9.1 L Hct 28.8 L MCHC RDW 16.4 H MCV MCH Lymph % (Auto) Gordon % (Auto) 7.8 H Gordon # Eos # Lymph # (Auto) Gordon # (Auto) 1.0 H Eos # (Auto) Seg Neutrophils % 75.5 H Seg Neuts % (Manual) Baso # (Auto) Lymphocytes % (Manual) Monocytes % (Manual) Eosinophils % (Manual) Basophils % (Manual) Seg Neutrophils # 9.7 H Seg Neutrophils # Man Lymphocytes # (Manual) Monocytes # (Manual) Eosinophils # (Manual) Nucleated RBC % Basophils # (Manual) PT INR APTT Heparin Anti-Xa Level ABG pH POC ABG pO2 ABG pO2 ABG HCO3 ABG O2 Saturation ABG Base Excess POC ABG pCO2 ABG Hemoglobin ABG Oxyhemoglobin ABG Glucose Oxyhemoglobin Sodium Potassium Chloride Carbon Dioxide BUN Creatinine Glucose POC Glucose 164 H 148 H Lactic Acid Calcium Phosphorus Magnesium AST ALT Lactate Dehydrogenase CK-MB (CK-2) C-Reactive Protein NT-Pro-B Natriuret Pep Total Protein Albumin Arterial Blood Glucose Urine WBC (Auto) Urine Creatinine 12/25/19 12/25/19 12/25/19 04:18 05:38 11:44 WBC RBC Hgb Hct MCHC RDW MCV MCH Lymph % (Auto) Gordon % (Auto) Gordon # Eos # Lymph # (Auto) Gordon # (Auto) Eos # (Auto) Seg Neutrophils % Seg Neuts % (Manual) Baso # (Auto) Lymphocytes % (Manual) Monocytes % (Manual) Eosinophils % (Manual) Basophils % (Manual) Seg Neutrophils # Seg Neutrophils # Man Lymphocytes # (Manual) Monocytes # (Manual) Eosinophils # (Manual) Nucleated RBC % Basophils # (Manual) PT INR APTT Heparin Anti-Xa Level ABG pH POC ABG pO2 ABG pO2 ABG HCO3 ABG O2 Saturation ABG Base Excess POC ABG pCO2 ABG Hemoglobin ABG Oxyhemoglobin ABG Glucose Oxyhemoglobin Sodium Potassium Chloride Carbon Dioxide 33 H BUN 27 H Creatinine 0.6 L Glucose 132 H POC Glucose 152 H 166 H Lactic Acid Calcium Phosphorus Magnesium AST ALT Lactate Dehydrogenase CK-MB (CK-2) C-Reactive Protein NT-Pro-B Natriuret Pep Total Protein Albumin Arterial Blood Glucose Urine WBC (Auto) Urine Creatinine 12/25/19 12/26/19 12/26/19 18:29 00:17 00:18 WBC RBC Hgb Hct MCHC RDW MCV MCH Lymph % (Auto) Gordon % (Auto) Gordon # Eos # Lymph # (Auto) Gordon # (Auto) Eos # (Auto) Seg Neutrophils % Seg Neuts % (Manual) Baso # (Auto) Lymphocytes % (Manual) Monocytes % (Manual) Eosinophils % (Manual) Basophils % (Manual) Seg Neutrophils # Seg Neutrophils # Man Lymphocytes # (Manual) Monocytes # (Manual) Eosinophils # (Manual) Nucleated RBC % Basophils # (Manual) PT INR APTT Heparin Anti-Xa Level ABG pH POC ABG pO2 ABG pO2 ABG HCO3 ABG O2 Saturation ABG Base Excess POC ABG pCO2 ABG Hemoglobin ABG Oxyhemoglobin ABG Glucose Oxyhemoglobin Sodium Potassium Chloride 97.8 L Carbon Dioxide BUN 25 H Creatinine 0.6 L Glucose 140 H POC Glucose 194 H 151 H Lactic Acid Calcium Phosphorus Magnesium AST ALT Lactate Dehydrogenase CK-MB (CK-2) C-Reactive Protein NT-Pro-B Natriuret Pep Total Protein Albumin Arterial Blood Glucose Urine WBC (Auto) Urine Creatinine 12/26/19 12/26/19 12/26/19 05:36 11:41 17:50 WBC RBC Hgb Hct MCHC RDW MCV MCH Lymph % (Auto) Gordon % (Auto) Gordon # Eos # Lymph # (Auto) Gordon # (Auto) Eos # (Auto) Seg Neutrophils % Seg Neuts % (Manual) Baso # (Auto) Lymphocytes % (Manual) Monocytes % (Manual) Eosinophils % (Manual) Basophils % (Manual) Seg Neutrophils # Seg Neutrophils # Man Lymphocytes # (Manual) Monocytes # (Manual) Eosinophils # (Manual) Nucleated RBC % Basophils # (Manual) PT INR APTT Heparin Anti-Xa Level ABG pH POC ABG pO2 ABG pO2 ABG HCO3 ABG O2 Saturation ABG Base Excess POC ABG pCO2 ABG Hemoglobin ABG Oxyhemoglobin ABG Glucose Oxyhemoglobin Sodium Potassium Chloride Carbon Dioxide BUN Creatinine Glucose POC Glucose 156 H 148 H 139 H Lactic Acid Calcium Phosphorus Magnesium AST ALT Lactate Dehydrogenase CK-MB (CK-2) C-Reactive Protein NT-Pro-B Natriuret Pep Total Protein Albumin Arterial Blood Glucose Urine WBC (Auto) Urine Creatinine 12/26/19 12/27/19 12/27/19 23:19 05:34 12:02 WBC RBC Hgb Hct MCHC RDW MCV MCH Lymph % (Auto) Gordon % (Auto) Gordon # Eos # Lymph # (Auto) Gordon # (Auto) Eos # (Auto) Seg Neutrophils % Seg Neuts % (Manual) Baso # (Auto) Lymphocytes % (Manual) Monocytes % (Manual) Eosinophils % (Manual) Basophils % (Manual) Seg Neutrophils # Seg Neutrophils # Man Lymphocytes # (Manual) Monocytes # (Manual) Eosinophils # (Manual) Nucleated RBC % Basophils # (Manual) PT INR APTT Heparin Anti-Xa Level ABG pH POC ABG pO2 ABG pO2 ABG HCO3 ABG O2 Saturation ABG Base Excess POC ABG pCO2 ABG Hemoglobin ABG Oxyhemoglobin ABG Glucose Oxyhemoglobin Sodium Potassium Chloride Carbon Dioxide BUN Creatinine Glucose POC Glucose 161 H 145 H 157 H Lactic Acid Calcium Phosphorus Magnesium AST ALT Lactate Dehydrogenase CK-MB (CK-2) C-Reactive Protein NT-Pro-B Natriuret Pep Total Protein Albumin Arterial Blood Glucose Urine WBC (Auto) Urine Creatinine 12/27/19 12/27/19 12/27/19 17:35 20:11 23:00 WBC RBC Hgb Hct MCHC RDW MCV MCH Lymph % (Auto) Gordon % (Auto) Gordon # Eos # Lymph # (Auto) Gordon # (Auto) Eos # (Auto) Seg Neutrophils % Seg Neuts % (Manual) Baso # (Auto) Lymphocytes % (Manual) Monocytes % (Manual) Eosinophils % (Manual) Basophils % (Manual) Seg Neutrophils # Seg Neutrophils # Man Lymphocytes # (Manual) Monocytes # (Manual) Eosinophils # (Manual) Nucleated RBC % Basophils # (Manual) PT INR APTT Heparin Anti-Xa Level 0.19 L ABG pH POC ABG pO2 ABG pO2 ABG HCO3 ABG O2 Saturation ABG Base Excess POC ABG pCO2 ABG Hemoglobin ABG Oxyhemoglobin ABG Glucose Oxyhemoglobin Sodium Potassium Chloride Carbon Dioxide BUN Creatinine Glucose POC Glucose 158 H 155 H Lactic Acid Calcium Phosphorus Magnesium AST ALT Lactate Dehydrogenase CK-MB (CK-2) C-Reactive Protein NT-Pro-B Natriuret Pep Total Protein Albumin Arterial Blood Glucose Urine WBC (Auto) Urine Creatinine 12/27/19 12/28/19 12/28/19 23:45 02:41 02:41 WBC 13.0 H RBC 3.48 L Hgb 9.5 L Hct 30.6 L MCHC 31 L RDW 16.6 H MCV MCH 27 L Lymph % (Auto) 13.0 L Gordon % (Auto) 8.0 H Gordon # Eos # Lymph # (Auto) Gordon # (Auto) 1.0 H Eos # (Auto) Seg Neutrophils % 76.3 H Seg Neuts % (Manual) Baso # (Auto) Lymphocytes % (Manual) Monocytes % (Manual) Eosinophils % (Manual) Basophils % (Manual) Seg Neutrophils # 9.9 H Seg Neutrophils # Man Lymphocytes # (Manual) Monocytes # (Manual) Eosinophils # (Manual) Nucleated RBC % Basophils # (Manual) PT INR APTT Heparin Anti-Xa Level ABG pH POC ABG pO2 ABG pO2 ABG HCO3 ABG O2 Saturation ABG Base Excess POC ABG pCO2 ABG Hemoglobin ABG Oxyhemoglobin ABG Glucose Oxyhemoglobin Sodium Potassium Chloride Carbon Dioxide BUN 22 H Creatinine 0.6 L Glucose 101 H POC Glucose 130 H Lactic Acid Calcium Phosphorus Magnesium AST ALT Lactate Dehydrogenase CK-MB (CK-2) C-Reactive Protein NT-Pro-B Natriuret Pep Total Protein Albumin Arterial Blood Glucose Urine WBC (Auto) Urine Creatinine 12/28/19 12/28/19 12/28/19 06:00 12:34 18:13 WBC RBC Hgb Hct MCHC RDW MCV MCH Lymph % (Auto) Gordon % (Auto) Gordon # Eos # Lymph # (Auto) Gordon # (Auto) Eos # (Auto) Seg Neutrophils % Seg Neuts % (Manual) Baso # (Auto) Lymphocytes % (Manual) Monocytes % (Manual) Eosinophils % (Manual) Basophils % (Manual) Seg Neutrophils # Seg Neutrophils # Man Lymphocytes # (Manual) Monocytes # (Manual) Eosinophils # (Manual) Nucleated RBC % Basophils # (Manual) PT INR APTT Heparin Anti-Xa Level ABG pH POC ABG pO2 ABG pO2 ABG HCO3 ABG O2 Saturation ABG Base Excess POC ABG pCO2 ABG Hemoglobin ABG Oxyhemoglobin ABG Glucose Oxyhemoglobin Sodium Potassium Chloride Carbon Dioxide BUN Creatinine Glucose POC Glucose 150 H 161 H 128 H Lactic Acid Calcium Phosphorus Magnesium AST ALT Lactate Dehydrogenase CK-MB (CK-2) C-Reactive Protein NT-Pro-B Natriuret Pep Total Protein Albumin Arterial Blood Glucose Urine WBC (Auto) Urine Creatinine 12/28/19 12/29/19 12/29/19 23:36 05:21 11:40 WBC RBC Hgb Hct MCHC RDW MCV MCH Lymph % (Auto) Gordon % (Auto) Gordon # Eos # Lymph # (Auto) Gordon # (Auto) Eos # (Auto) Seg Neutrophils % Seg Neuts % (Manual) Baso # (Auto) Lymphocytes % (Manual) Monocytes % (Manual) Eosinophils % (Manual) Basophils % (Manual) Seg Neutrophils # Seg Neutrophils # Man Lymphocytes # (Manual) Monocytes # (Manual) Eosinophils # (Manual) Nucleated RBC % Basophils # (Manual) PT INR APTT Heparin Anti-Xa Level ABG pH POC ABG pO2 ABG pO2 ABG HCO3 ABG O2 Saturation ABG Base Excess POC ABG pCO2 ABG Hemoglobin ABG Oxyhemoglobin ABG Glucose Oxyhemoglobin Sodium Potassium Chloride Carbon Dioxide BUN Creatinine Glucose POC Glucose 137 H 136 H 166 H Lactic Acid Calcium Phosphorus Magnesium AST ALT Lactate Dehydrogenase CK-MB (CK-2) C-Reactive Protein NT-Pro-B Natriuret Pep Total Protein Albumin Arterial Blood Glucose Urine WBC (Auto) Urine Creatinine 12/29/19 12/29/19 12/29/19 17:23 19:21 23:38 WBC RBC Hgb Hct MCHC RDW MCV MCH Lymph % (Auto) Gordon % (Auto) Gordon # Eos # Lymph # (Auto) Gordon # (Auto) Eos # (Auto) Seg Neutrophils % Seg Neuts % (Manual) Baso # (Auto) Lymphocytes % (Manual) Monocytes % (Manual) Eosinophils % (Manual) Basophils % (Manual) Seg Neutrophils # Seg Neutrophils # Man Lymphocytes # (Manual) Monocytes # (Manual) Eosinophils # (Manual) Nucleated RBC % Basophils # (Manual) PT INR APTT Heparin Anti-Xa Level 0.20 L ABG pH POC ABG pO2 ABG pO2 ABG HCO3 ABG O2 Saturation ABG Base Excess POC ABG pCO2 ABG Hemoglobin ABG Oxyhemoglobin ABG Glucose Oxyhemoglobin Sodium Potassium Chloride Carbon Dioxide BUN Creatinine Glucose POC Glucose 144 H 141 H Lactic Acid Calcium Phosphorus Magnesium AST ALT Lactate Dehydrogenase CK-MB (CK-2) C-Reactive Protein NT-Pro-B Natriuret Pep Total Protein Albumin Arterial Blood Glucose Urine WBC (Auto) Urine Creatinine 12/30/19 12/30/19 12/30/19 03:58 03:58 04:59 WBC RBC 3.54 L Hgb 9.8 L Hct 30.7 L MCHC RDW 16.8 H MCV MCH Lymph % (Auto) Gordon % (Auto) Gordon # Eos # Lymph # (Auto) Gordon # (Auto) Eos # (Auto) Seg Neutrophils % Seg Neuts % (Manual) Baso # (Auto) Lymphocytes % (Manual) Monocytes % (Manual) Eosinophils % (Manual) Basophils % (Manual) Seg Neutrophils # Seg Neutrophils # Man Lymphocytes # (Manual) Monocytes # (Manual) Eosinophils # (Manual) Nucleated RBC % Basophils # (Manual) PT INR APTT Heparin Anti-Xa Level ABG pH POC ABG pO2 ABG pO2 ABG HCO3 29.8 H ABG O2 Saturation ABG Base Excess 4.8 H POC ABG pCO2 ABG Hemoglobin 11.2 L ABG Oxyhemoglobin ABG Glucose Oxyhemoglobin 93.8 L Sodium Potassium Chloride 97.8 L Carbon Dioxide BUN 26 H Creatinine Glucose 168 H POC Glucose Lactic Acid Calcium Phosphorus Magnesium AST ALT Lactate Dehydrogenase CK-MB (CK-2) C-Reactive Protein NT-Pro-B Natriuret Pep Total Protein Albumin Arterial Blood Glucose Urine WBC (Auto) Urine Creatinine 12/30/19 12/30/19 12/30/19 05:45 11:34 17:28 WBC RBC Hgb Hct MCHC RDW MCV MCH Lymph % (Auto) Gordon % (Auto) Gordon # Eos # Lymph # (Auto) Gordon # (Auto) Eos # (Auto) Seg Neutrophils % Seg Neuts % (Manual) Baso # (Auto) Lymphocytes % (Manual) Monocytes % (Manual) Eosinophils % (Manual) Basophils % (Manual) Seg Neutrophils # Seg Neutrophils # Man Lymphocytes # (Manual) Monocytes # (Manual) Eosinophils # (Manual) Nucleated RBC % Basophils # (Manual) PT INR APTT Heparin Anti-Xa Level ABG pH POC ABG pO2 ABG pO2 ABG HCO3 ABG O2 Saturation ABG Base Excess POC ABG pCO2 ABG Hemoglobin ABG Oxyhemoglobin ABG Glucose Oxyhemoglobin Sodium Potassium Chloride Carbon Dioxide BUN Creatinine Glucose POC Glucose 163 H 180 H 150 H Lactic Acid Calcium Phosphorus Magnesium AST ALT Lactate Dehydrogenase CK-MB (CK-2) C-Reactive Protein NT-Pro-B Natriuret Pep Total Protein Albumin Arterial Blood Glucose Urine WBC (Auto) Urine Creatinine 12/30/19 12/31/19 12/31/19 23:43 04:55 05:07 WBC RBC Hgb Hct MCHC RDW MCV MCH Lymph % (Auto) Gordon % (Auto) Gordon # Eos # Lymph # (Auto) Gordon # (Auto) Eos # (Auto) Seg Neutrophils % Seg Neuts % (Manual) Baso # (Auto) Lymphocytes % (Manual) Monocytes % (Manual) Eosinophils % (Manual) Basophils % (Manual) Seg Neutrophils # Seg Neutrophils # Man Lymphocytes # (Manual) Monocytes # (Manual) Eosinophils # (Manual) Nucleated RBC % Basophils # (Manual) PT INR APTT Heparin Anti-Xa Level ABG pH POC ABG pO2 ABG pO2 ABG HCO3 ABG O2 Saturation ABG Base Excess POC ABG pCO2 ABG Hemoglobin ABG Oxyhemoglobin ABG Glucose Oxyhemoglobin Sodium Potassium 5.6 H D Chloride Carbon Dioxide BUN 33 H Creatinine Glucose 131 H POC Glucose 142 H 134 H Lactic Acid Calcium Phosphorus Magnesium AST ALT Lactate Dehydrogenase CK-MB (CK-2) C-Reactive Protein NT-Pro-B Natriuret Pep Total Protein Albumin Arterial Blood Glucose Urine WBC (Auto) Urine Creatinine 12/31/19 12/31/19 12/31/19 11:30 17:19 17:36 WBC RBC Hgb Hct MCHC RDW MCV MCH Lymph % (Auto) Gordon % (Auto) Gordon # Eos # Lymph # (Auto) Gordon # (Auto) Eos # (Auto) Seg Neutrophils % Seg Neuts % (Manual) Baso # (Auto) Lymphocytes % (Manual) Monocytes % (Manual) Eosinophils % (Manual) Basophils % (Manual) Seg Neutrophils # Seg Neutrophils # Man Lymphocytes # (Manual) Monocytes # (Manual) Eosinophils # (Manual) Nucleated RBC % Basophils # (Manual) PT INR APTT Heparin Anti-Xa Level ABG pH POC ABG pO2 ABG pO2 ABG HCO3 ABG O2 Saturation ABG Base Excess POC ABG pCO2 ABG Hemoglobin ABG Oxyhemoglobin ABG Glucose Oxyhemoglobin Sodium Potassium Chloride Carbon Dioxide BUN 35 H Creatinine Glucose 156 H POC Glucose 158 H 181 H Lactic Acid Calcium Phosphorus Magnesium AST ALT Lactate Dehydrogenase CK-MB (CK-2) C-Reactive Protein NT-Pro-B Natriuret Pep Total Protein Albumin Arterial Blood Glucose Urine WBC (Auto) Urine Creatinine 12/31/19 12/31/19 12/31/19 18:16 19:41 21:53 WBC RBC Hgb Hct MCHC RDW MCV MCH Lymph % (Auto) Gordon % (Auto) Gordon # Eos # Lymph # (Auto) Gordon # (Auto) Eos # (Auto) Seg Neutrophils % Seg Neuts % (Manual) Baso # (Auto) Lymphocytes % (Manual) Monocytes % (Manual) Eosinophils % (Manual) Basophils % (Manual) Seg Neutrophils # Seg Neutrophils # Man Lymphocytes # (Manual) Monocytes # (Manual) Eosinophils # (Manual) Nucleated RBC % Basophils # (Manual) PT INR APTT Heparin Anti-Xa Level 0.20 L ABG pH POC ABG pO2 ABG pO2 ABG HCO3 ABG O2 Saturation ABG Base Excess POC ABG pCO2 ABG Hemoglobin ABG Oxyhemoglobin ABG Glucose Oxyhemoglobin Sodium Potassium Chloride Carbon Dioxide BUN 34 H Creatinine Glucose 169 H POC Glucose 141 H Lactic Acid Calcium Phosphorus Magnesium AST ALT Lactate Dehydrogenase CK-MB (CK-2) C-Reactive Protein NT-Pro-B Natriuret Pep Total Protein Albumin Arterial Blood Glucose Urine WBC (Auto) Urine Creatinine 12/31/19 01/01/20 01/01/20 23:51 05:17 10:40 WBC RBC Hgb Hct MCHC RDW MCV MCH Lymph % (Auto) Gordon % (Auto) Gordon # Eos # Lymph # (Auto) Gordon # (Auto) Eos # (Auto) Seg Neutrophils % Seg Neuts % (Manual) Baso # (Auto) Lymphocytes % (Manual) Monocytes % (Manual) Eosinophils % (Manual) Basophils % (Manual) Seg Neutrophils # Seg Neutrophils # Man Lymphocytes # (Manual) Monocytes # (Manual) Eosinophils # (Manual) Nucleated RBC % Basophils # (Manual) PT INR APTT Heparin Anti-Xa Level ABG pH POC ABG pO2 ABG pO2 ABG HCO3 ABG O2 Saturation ABG Base Excess POC ABG pCO2 ABG Hemoglobin ABG Oxyhemoglobin ABG Glucose Oxyhemoglobin Sodium Potassium Chloride Carbon Dioxide BUN 31 H Creatinine 0.7 L Glucose 137 H POC Glucose 131 H 155 H Lactic Acid Calcium Phosphorus Magnesium AST 73 H ALT 97 H Lactate Dehydrogenase CK-MB (CK-2) C-Reactive Protein NT-Pro-B Natriuret Pep 3866 H Total Protein Albumin 2.8 L Arterial Blood Glucose Urine WBC (Auto) Urine Creatinine 01/01/20 01/01/20 01/01/20 12:26 15:33 17:53 WBC 14.3 H RBC 3.35 L Hgb 9.1 L Hct 28.8 L MCHC RDW 17.0 H MCV MCH 27 L Lymph % (Auto) 7.0 L Gordon % (Auto) 7.6 H Gordon # Eos # Lymph # (Auto) 1.0 L Gordon # (Auto) 1.1 H Eos # (Auto) Seg Neutrophils % 83.3 H Seg Neuts % (Manual) Baso # (Auto) Lymphocytes % (Manual) Monocytes % (Manual) Eosinophils % (Manual) Basophils % (Manual) Seg Neutrophils # 12.0 H Seg Neutrophils # Man Lymphocytes # (Manual) Monocytes # (Manual) Eosinophils # (Manual) Nucleated RBC % Basophils # (Manual) PT INR APTT Heparin Anti-Xa Level ABG pH POC ABG pO2 ABG pO2 ABG HCO3 ABG O2 Saturation ABG Base Excess POC ABG pCO2 ABG Hemoglobin ABG Oxyhemoglobin ABG Glucose Oxyhemoglobin Sodium Potassium Chloride Carbon Dioxide BUN Creatinine Glucose POC Glucose 128 H 128 H Lactic Acid Calcium Phosphorus Magnesium AST ALT Lactate Dehydrogenase CK-MB (CK-2) C-Reactive Protein NT-Pro-B Natriuret Pep Total Protein Albumin Arterial Blood Glucose Urine WBC (Auto) Urine Creatinine 01/01/20 01/02/20 01/02/20 23:04 05:39 07:00 WBC RBC Hgb Hct MCHC RDW MCV MCH Lymph % (Auto) Gordon % (Auto) Gordon # Eos # Lymph # (Auto) Gordon # (Auto) Eos # (Auto) Seg Neutrophils % Seg Neuts % (Manual) Baso # (Auto) Lymphocytes % (Manual) Monocytes % (Manual) Eosinophils % (Manual) Basophils % (Manual) Seg Neutrophils # Seg Neutrophils # Man Lymphocytes # (Manual) Monocytes # (Manual) Eosinophils # (Manual) Nucleated RBC % Basophils # (Manual) PT INR APTT Heparin Anti-Xa Level 0.13 L ABG pH POC ABG pO2 ABG pO2 ABG HCO3 ABG O2 Saturation ABG Base Excess POC ABG pCO2 ABG Hemoglobin ABG Oxyhemoglobin ABG Glucose Oxyhemoglobin Sodium Potassium Chloride Carbon Dioxide BUN Creatinine Glucose POC Glucose 120 H 169 H Lactic Acid Calcium Phosphorus Magnesium AST ALT Lactate Dehydrogenase CK-MB (CK-2) C-Reactive Protein NT-Pro-B Natriuret Pep Total Protein Albumin Arterial Blood Glucose Urine WBC (Auto) Urine Creatinine 01/02/20 01/02/20 01/02/20 12:15 14:06 17:58 WBC RBC Hgb Hct MCHC RDW MCV MCH Lymph % (Auto) Gordon % (Auto) Gordon # Eos # Lymph # (Auto) Gordon # (Auto) Eos # (Auto) Seg Neutrophils % Seg Neuts % (Manual) Baso # (Auto) Lymphocytes % (Manual) Monocytes % (Manual) Eosinophils % (Manual) Basophils % (Manual) Seg Neutrophils # Seg Neutrophils # Man Lymphocytes # (Manual) Monocytes # (Manual) Eosinophils # (Manual) Nucleated RBC % Basophils # (Manual) PT INR APTT Heparin Anti-Xa Level < 0.10 L ABG pH POC ABG pO2 ABG pO2 ABG HCO3 ABG O2 Saturation ABG Base Excess POC ABG pCO2 ABG Hemoglobin ABG Oxyhemoglobin ABG Glucose Oxyhemoglobin Sodium Potassium Chloride Carbon Dioxide BUN Creatinine Glucose POC Glucose 190 H 198 H Lactic Acid Calcium Phosphorus Magnesium AST ALT Lactate Dehydrogenase CK-MB (CK-2) C-Reactive Protein NT-Pro-B Natriuret Pep Total Protein Albumin Arterial Blood Glucose Urine WBC (Auto) Urine Creatinine 01/02/20 01/02/20 01/03/20 21:43 23:33 05:42 WBC RBC Hgb Hct MCHC RDW MCV MCH Lymph % (Auto) Gordon % (Auto) Gordon # Eos # Lymph # (Auto) Gordon # (Auto) Eos # (Auto) Seg Neutrophils % Seg Neuts % (Manual) Baso # (Auto) Lymphocytes % (Manual) Monocytes % (Manual) Eosinophils % (Manual) Basophils % (Manual) Seg Neutrophils # Seg Neutrophils # Man Lymphocytes # (Manual) Monocytes # (Manual) Eosinophils # (Manual) Nucleated RBC % Basophils # (Manual) PT INR APTT Heparin Anti-Xa Level 0.10 L ABG pH POC ABG pO2 ABG pO2 ABG HCO3 ABG O2 Saturation ABG Base Excess POC ABG pCO2 ABG Hemoglobin ABG Oxyhemoglobin ABG Glucose Oxyhemoglobin Sodium Potassium Chloride Carbon Dioxide BUN Creatinine Glucose POC Glucose 180 H 163 H Lactic Acid Calcium Phosphorus Magnesium AST ALT Lactate Dehydrogenase CK-MB (CK-2) C-Reactive Protein NT-Pro-B Natriuret Pep Total Protein Albumin Arterial Blood Glucose Urine WBC (Auto) Urine Creatinine 01/03/20 01/03/20 01/03/20 06:50 07:25 07:45 WBC 12.1 H RBC 3.35 L Hgb 9.0 L Hct 28.9 L MCHC 31 L RDW 16.6 H MCV MCH 27 L Lymph % (Auto) 13.0 L Gordon % (Auto) 8.6 H Gordon # Eos # Lymph # (Auto) Gordon # (Auto) 1.0 H Eos # (Auto) Seg Neutrophils % 75.9 H Seg Neuts % (Manual) Baso # (Auto) Lymphocytes % (Manual) Monocytes % (Manual) Eosinophils % (Manual) Basophils % (Manual) Seg Neutrophils # 9.2 H Seg Neutrophils # Man Lymphocytes # (Manual) Monocytes # (Manual) Eosinophils # (Manual) Nucleated RBC % Basophils # (Manual) PT INR APTT Heparin Anti-Xa Level 0.29 L ABG pH POC ABG pO2 ABG pO2 ABG HCO3 ABG O2 Saturation ABG Base Excess POC ABG pCO2 ABG Hemoglobin ABG Oxyhemoglobin ABG Glucose Oxyhemoglobin Sodium Potassium 3.3 L D Chloride Carbon Dioxide 35 H D BUN 23 H Creatinine 0.6 L Glucose 149 H POC Glucose Lactic Acid Calcium Phosphorus Magnesium AST ALT 88 H Lactate Dehydrogenase CK-MB (CK-2) C-Reactive Protein NT-Pro-B Natriuret Pep Total Protein 6.2 L Albumin 2.9 L Arterial Blood Glucose Urine WBC (Auto) Urine Creatinine 01/03/20 01/03/20 01/03/20 12:05 17:42 18:30 WBC RBC Hgb Hct MCHC RDW MCV MCH Lymph % (Auto) Gordon % (Auto) Gordon # Eos # Lymph # (Auto) Gordon # (Auto) Eos # (Auto) Seg Neutrophils % Seg Neuts % (Manual) Baso # (Auto) Lymphocytes % (Manual) Monocytes % (Manual) Eosinophils % (Manual) Basophils % (Manual) Seg Neutrophils # Seg Neutrophils # Man Lymphocytes # (Manual) Monocytes # (Manual) Eosinophils # (Manual) Nucleated RBC % Basophils # (Manual) PT INR APTT Heparin Anti-Xa Level ABG pH POC ABG pO2 ABG pO2 70.7 L ABG HCO3 36.1 H ABG O2 Saturation 94.4 L ABG Base Excess 10.0 H POC ABG pCO2 ABG Hemoglobin 9.7 L ABG Oxyhemoglobin ABG Glucose Oxyhemoglobin 91.8 L Sodium Potassium Chloride Carbon Dioxide BUN Creatinine Glucose POC Glucose 128 H 132 H Lactic Acid Calcium Phosphorus Magnesium AST ALT Lactate Dehydrogenase CK-MB (CK-2) C-Reactive Protein NT-Pro-B Natriuret Pep Total Protein Albumin Arterial Blood Glucose Urine WBC (Auto) Urine Creatinine 01/04/20 01/04/20 01/04/20 00:10 04:26 05:23 WBC RBC Hgb Hct MCHC RDW MCV MCH Lymph % (Auto) Gordon % (Auto) Gordon # Eos # Lymph # (Auto) Gordon # (Auto) Eos # (Auto) Seg Neutrophils % Seg Neuts % (Manual) Baso # (Auto) Lymphocytes % (Manual) Monocytes % (Manual) Eosinophils % (Manual) Basophils % (Manual) Seg Neutrophils # Seg Neutrophils # Man Lymphocytes # (Manual) Monocytes # (Manual) Eosinophils # (Manual) Nucleated RBC % Basophils # (Manual) PT INR APTT Heparin Anti-Xa Level 0.16 L ABG pH POC ABG pO2 ABG pO2 ABG HCO3 ABG O2 Saturation ABG Base Excess POC ABG pCO2 ABG Hemoglobin ABG Oxyhemoglobin ABG Glucose Oxyhemoglobin Sodium Potassium Chloride Carbon Dioxide BUN Creatinine Glucose POC Glucose 121 H 119 H Lactic Acid Calcium Phosphorus Magnesium AST ALT Lactate Dehydrogenase CK-MB (CK-2) C-Reactive Protein NT-Pro-B Natriuret Pep Total Protein Albumin Arterial Blood Glucose Urine WBC (Auto) Urine Creatinine 01/04/20 01/04/20 01/04/20 09:50 09:50 12:18 WBC 15.4 H RBC 3.30 L Hgb 8.7 L Hct 28.2 L MCHC 31 L RDW 17.0 H MCV MCH 26 L Lymph % (Auto) Gordon % (Auto) 7.6 H Gordon # Eos # Lymph # (Auto) Gordon # (Auto) 1.2 H Eos # (Auto) Seg Neutrophils % 75.4 H Seg Neuts % (Manual) Baso # (Auto) Lymphocytes % (Manual) Monocytes % (Manual) Eosinophils % (Manual) Basophils % (Manual) Seg Neutrophils # 11.6 H Seg Neutrophils # Man Lymphocytes # (Manual) Monocytes # (Manual) Eosinophils # (Manual) Nucleated RBC % Basophils # (Manual) PT INR APTT Heparin Anti-Xa Level ABG pH POC ABG pO2 ABG pO2 ABG HCO3 ABG O2 Saturation ABG Base Excess POC ABG pCO2 ABG Hemoglobin ABG Oxyhemoglobin ABG Glucose Oxyhemoglobin Sodium 148 H Potassium 3.5 L Chloride Carbon Dioxide 32 H BUN Creatinine 0.6 L Glucose 114 H POC Glucose 111 H Lactic Acid Calcium Phosphorus Magnesium AST ALT 59 H Lactate Dehydrogenase CK-MB (CK-2) C-Reactive Protein NT-Pro-B Natriuret Pep Total Protein Albumin 2.6 L Arterial Blood Glucose Urine WBC (Auto) Urine Creatinine 01/05/20 01/05/20 01/05/20 04:05 04:05 05:19 WBC 11.7 H RBC 3.50 L Hgb 9.3 L Hct 29.9 L MCHC 31 L RDW 16.6 H MCV MCH 27 L Lymph % (Auto) 13.1 L Gordon % (Auto) 9.7 H Gordon # Eos # Lymph # (Auto) Gordon # (Auto) 1.1 H Eos # (Auto) Seg Neutrophils % 74.0 H Seg Neuts % (Manual) Baso # (Auto) Lymphocytes % (Manual) Monocytes % (Manual) Eosinophils % (Manual) Basophils % (Manual) Seg Neutrophils # 8.6 H Seg Neutrophils # Man Lymphocytes # (Manual) Monocytes # (Manual) Eosinophils # (Manual) Nucleated RBC % Basophils # (Manual) PT INR APTT Heparin Anti-Xa Level ABG pH POC ABG pO2 ABG pO2 ABG HCO3 ABG O2 Saturation ABG Base Excess POC ABG pCO2 ABG Hemoglobin ABG Oxyhemoglobin ABG Glucose Oxyhemoglobin Sodium 151 H Potassium Chloride Carbon Dioxide 34 H BUN Creatinine 0.7 L Glucose POC Glucose 112 H Lactic Acid Calcium Phosphorus Magnesium AST ALT 59 H Lactate Dehydrogenase CK-MB (CK-2) C-Reactive Protein NT-Pro-B Natriuret Pep Total Protein 5.8 L Albumin 2.6 L Arterial Blood Glucose Urine WBC (Auto) Urine Creatinine 01/05/20 01/06/20 01/06/20 16:04 00:23 04:44 WBC RBC 3.36 L Hgb 8.9 L Hct 28.7 L MCHC 31 L RDW 16.9 H MCV MCH 26 L Lymph % (Auto) Gordon % (Auto) 9.4 H Gordon # Eos # Lymph # (Auto) Gordon # (Auto) Eos # (Auto) Seg Neutrophils % Seg Neuts % (Manual) Baso # (Auto) Lymphocytes % (Manual) Monocytes % (Manual) Eosinophils % (Manual) Basophils % (Manual) Seg Neutrophils # Seg Neutrophils # Man Lymphocytes # (Manual) Monocytes # (Manual) Eosinophils # (Manual) Nucleated RBC % Basophils # (Manual) PT INR APTT Heparin Anti-Xa Level ABG pH POC ABG pO2 ABG pO2 ABG HCO3 ABG O2 Saturation ABG Base Excess POC ABG pCO2 ABG Hemoglobin ABG Oxyhemoglobin ABG Glucose Oxyhemoglobin Sodium 151 H Potassium 3.2 L Chloride Carbon Dioxide 34 H BUN Creatinine 0.6 L Glucose POC Glucose 107 H Lactic Acid Calcium Phosphorus Magnesium AST ALT Lactate Dehydrogenase CK-MB (CK-2) C-Reactive Protein NT-Pro-B Natriuret Pep Total Protein Albumin Arterial Blood Glucose Urine WBC (Auto) Urine Creatinine 01/06/20 01/06/20 01/06/20 04:44 05:33 12:04 WBC RBC Hgb Hct MCHC RDW MCV MCH Lymph % (Auto) Gordon % (Auto) Gordon # Eos # Lymph # (Auto) Gordon # (Auto) Eos # (Auto) Seg Neutrophils % Seg Neuts % (Manual) Baso # (Auto) Lymphocytes % (Manual) Monocytes % (Manual) Eosinophils % (Manual) Basophils % (Manual) Seg Neutrophils # Seg Neutrophils # Man Lymphocytes # (Manual) Monocytes # (Manual) Eosinophils # (Manual) Nucleated RBC % Basophils # (Manual) PT INR APTT Heparin Anti-Xa Level ABG pH POC ABG pO2 ABG pO2 ABG HCO3 ABG O2 Saturation ABG Base Excess POC ABG pCO2 ABG Hemoglobin ABG Oxyhemoglobin ABG Glucose Oxyhemoglobin Sodium 151 H Potassium 3.4 L Chloride Carbon Dioxide 33 H BUN Creatinine 0.6 L Glucose 118 H POC Glucose 118 H 123 H Lactic Acid Calcium Phosphorus Magnesium AST ALT Lactate Dehydrogenase CK-MB (CK-2) C-Reactive Protein NT-Pro-B Natriuret Pep Total Protein 6.2 L Albumin 2.6 L Arterial Blood Glucose Urine WBC (Auto) Urine Creatinine 1001/07/20 01/07/20 17:54 00:06 04:10 WBC RBC 3.42 L Hgb 8.9 L Hct 29.0 L MCHC 31 L RDW 17.1 H MCV MCH 26 L Lymph % (Auto) Gordon % (Auto) 8.4 H Gordon # Eos # Lymph # (Auto) Gordon # (Auto) Eos # (Auto) Seg Neutrophils % Seg Neuts % (Manual) Baso # (Auto) Lymphocytes % (Manual) Monocytes % (Manual) Eosinophils % (Manual) Basophils % (Manual) Seg Neutrophils # Seg Neutrophils # Man Lymphocytes # (Manual) Monocytes # (Manual) Eosinophils # (Manual) Nucleated RBC % Basophils # (Manual) PT INR APTT Heparin Anti-Xa Level ABG pH POC ABG pO2 ABG pO2 ABG HCO3 ABG O2 Saturation ABG Base Excess POC ABG pCO2 ABG Hemoglobin ABG Oxyhemoglobin ABG Glucose Oxyhemoglobin Sodium Potassium Chloride Carbon Dioxide BUN Creatinine Glucose POC Glucose 112 H 126 H Lactic Acid Calcium Phosphorus Magnesium AST ALT Lactate Dehydrogenase CK-MB (CK-2) C-Reactive Protein NT-Pro-B Natriuret Pep Total Protein Albumin Arterial Blood Glucose Urine WBC (Auto) Urine Creatinine 01/07/20 01/07/20 01/07/20 04:10 05:59 12:27 WBC RBC Hgb Hct MCHC RDW MCV MCH Lymph % (Auto) Gordon % (Auto) Gordon # Eos # Lymph # (Auto) Gordon # (Auto) Eos # (Auto) Seg Neutrophils % Seg Neuts % (Manual) Baso # (Auto) Lymphocytes % (Manual) Monocytes % (Manual) Eosinophils % (Manual) Basophils % (Manual) Seg Neutrophils # Seg Neutrophils # Man Lymphocytes # (Manual) Monocytes # (Manual) Eosinophils # (Manual) Nucleated RBC % Basophils # (Manual) PT INR APTT Heparin Anti-Xa Level ABG pH POC ABG pO2 ABG pO2 ABG HCO3 ABG O2 Saturation ABG Base Excess POC ABG pCO2 ABG Hemoglobin ABG Oxyhemoglobin ABG Glucose Oxyhemoglobin Sodium 153 H Potassium 3.5 L Chloride Carbon Dioxide 34 H BUN Creatinine 0.6 L Glucose 121 H POC Glucose 121 H 126 H Lactic Acid Calcium Phosphorus Magnesium AST ALT Lactate Dehydrogenase CK-MB (CK-2) C-Reactive Protein NT-Pro-B Natriuret Pep Total Protein 5.9 L Albumin 2.4 L Arterial Blood Glucose Urine WBC (Auto) Urine Creatinine 01/07/20 01/08/20 01/08/20 18:12 00:03 05:41 WBC RBC Hgb Hct MCHC RDW MCV MCH Lymph % (Auto) Gordon % (Auto) Gordon # Eos # Lymph # (Auto) Gordon # (Auto) Eos # (Auto) Seg Neutrophils % Seg Neuts % (Manual) Baso # (Auto) Lymphocytes % (Manual) Monocytes % (Manual) Eosinophils % (Manual) Basophils % (Manual) Seg Neutrophils # Seg Neutrophils # Man Lymphocytes # (Manual) Monocytes # (Manual) Eosinophils # (Manual) Nucleated RBC % Basophils # (Manual) PT INR APTT Heparin Anti-Xa Level ABG pH POC ABG pO2 ABG pO2 ABG HCO3 ABG O2 Saturation ABG Base Excess POC ABG pCO2 ABG Hemoglobin ABG Oxyhemoglobin ABG Glucose Oxyhemoglobin Sodium Potassium Chloride Carbon Dioxide BUN Creatinine Glucose POC Glucose 124 H 130 H 138 H Lactic Acid Calcium Phosphorus Magnesium AST ALT Lactate Dehydrogenase CK-MB (CK-2) C-Reactive Protein NT-Pro-B Natriuret Pep Total Protein Albumin Arterial Blood Glucose Urine WBC (Auto) Urine Creatinine 01/08/20 01/08/20 01/08/20 09:28 11:42 18:21 WBC RBC Hgb Hct MCHC RDW MCV MCH Lymph % (Auto) Gordon % (Auto) Gordon # Eos # Lymph # (Auto) Gordon # (Auto) Eos # (Auto) Seg Neutrophils % Seg Neuts % (Manual) Baso # (Auto) Lymphocytes % (Manual) Monocytes % (Manual) Eosinophils % (Manual) Basophils % (Manual) Seg Neutrophils # Seg Neutrophils # Man Lymphocytes # (Manual) Monocytes # (Manual) Eosinophils # (Manual) Nucleated RBC % Basophils # (Manual) PT INR APTT Heparin Anti-Xa Level ABG pH POC ABG pO2 ABG pO2 ABG HCO3 ABG O2 Saturation ABG Base Excess POC ABG pCO2 ABG Hemoglobin ABG Oxyhemoglobin ABG Glucose Oxyhemoglobin Sodium Potassium Chloride Carbon Dioxide BUN Creatinine Glucose POC Glucose 181 H 150 H 129 H Lactic Acid Calcium Phosphorus Magnesium AST ALT Lactate Dehydrogenase CK-MB (CK-2) C-Reactive Protein NT-Pro-B Natriuret Pep Total Protein Albumin Arterial Blood Glucose Urine WBC (Auto) Urine Creatinine 01/08/20 01/08/20 01/09/20 19:25 23:55 04:11 WBC RBC 3.43 L Hgb 8.9 L Hct 28.7 L MCHC 31 L RDW 17.6 H MCV MCH 26 L Lymph % (Auto) Gordon % (Auto) 8.6 H Gordon # Eos # Lymph # (Auto) Gordon # (Auto) Eos # (Auto) Seg Neutrophils % Seg Neuts % (Manual) Baso # (Auto) Lymphocytes % (Manual) Monocytes % (Manual) Eosinophils % (Manual) Basophils % (Manual) Seg Neutrophils # Seg Neutrophils # Man Lymphocytes # (Manual) Monocytes # (Manual) Eosinophils # (Manual) Nucleated RBC % Basophils # (Manual) PT INR APTT Heparin Anti-Xa Level ABG pH POC ABG pO2 ABG pO2 ABG HCO3 ABG O2 Saturation ABG Base Excess POC ABG pCO2 ABG Hemoglobin ABG Oxyhemoglobin ABG Glucose Oxyhemoglobin Sodium Potassium Chloride Carbon Dioxide BUN Creatinine 0.7 L Glucose 117 H POC Glucose 132 H Lactic Acid Calcium Phosphorus Magnesium AST ALT Lactate Dehydrogenase CK-MB (CK-2) C-Reactive Protein NT-Pro-B Natriuret Pep Total Protein Albumin Arterial Blood Glucose Urine WBC (Auto) Urine Creatinine 01/09/20 01/09/20 01/09/20 04:11 05:38 22:58 WBC RBC Hgb Hct MCHC RDW MCV MCH Lymph % (Auto) Gordon % (Auto) Gordon # Eos # Lymph # (Auto) Gordon # (Auto) Eos # (Auto) Seg Neutrophils % Seg Neuts % (Manual) Baso # (Auto) Lymphocytes % (Manual) Monocytes % (Manual) Eosinophils % (Manual) Basophils % (Manual) Seg Neutrophils # Seg Neutrophils # Man Lymphocytes # (Manual) Monocytes # (Manual) Eosinophils # (Manual) Nucleated RBC % Basophils # (Manual) PT INR APTT Heparin Anti-Xa Level ABG pH POC ABG pO2 ABG pO2 ABG HCO3 ABG O2 Saturation ABG Base Excess POC ABG pCO2 ABG Hemoglobin ABG Oxyhemoglobin ABG Glucose Oxyhemoglobin Sodium 147 H Potassium 3.3 L D Chloride Carbon Dioxide 32 H BUN Creatinine 0.6 L Glucose 106 H POC Glucose 107 H 113 H Lactic Acid Calcium Phosphorus Magnesium AST ALT Lactate Dehydrogenase CK-MB (CK-2) C-Reactive Protein NT-Pro-B Natriuret Pep Total Protein Albumin Arterial Blood Glucose Urine WBC (Auto) Urine Creatinine 01/10/20 01/10/20 01/10/20 04:05 11:36 17:54 WBC RBC Hgb Hct MCHC RDW MCV MCH Lymph % (Auto) Gordon % (Auto) Gordon # Eos # Lymph # (Auto) Gordon # (Auto) Eos # (Auto) Seg Neutrophils % Seg Neuts % (Manual) Baso # (Auto) Lymphocytes % (Manual) Monocytes % (Manual) Eosinophils % (Manual) Basophils % (Manual) Seg Neutrophils # Seg Neutrophils # Man Lymphocytes # (Manual) Monocytes # (Manual) Eosinophils # (Manual) Nucleated RBC % Basophils # (Manual) PT INR APTT Heparin Anti-Xa Level ABG pH POC ABG pO2 ABG pO2 ABG HCO3 ABG O2 Saturation ABG Base Excess POC ABG pCO2 ABG Hemoglobin ABG Oxyhemoglobin ABG Glucose Oxyhemoglobin Sodium Potassium Chloride Carbon Dioxide BUN Creatinine 0.7 L Glucose 110 H POC Glucose 129 H 117 H Lactic Acid Calcium Phosphorus Magnesium AST ALT Lactate Dehydrogenase CK-MB (CK-2) C-Reactive Protein NT-Pro-B Natriuret Pep Total Protein Albumin Arterial Blood Glucose Urine WBC (Auto) Urine Creatinine 01/10/20 01/11/20 01/11/20 23:52 03:19 12:09 WBC RBC Hgb Hct MCHC RDW MCV MCH Lymph % (Auto) Gordon % (Auto) Gordon # Eos # Lymph # (Auto) Gordon # (Auto) Eos # (Auto) Seg Neutrophils % Seg Neuts % (Manual) Baso # (Auto) Lymphocytes % (Manual) Monocytes % (Manual) Eosinophils % (Manual) Basophils % (Manual) Seg Neutrophils # Seg Neutrophils # Man Lymphocytes # (Manual) Monocytes # (Manual) Eosinophils # (Manual) Nucleated RBC % Basophils # (Manual) PT INR APTT Heparin Anti-Xa Level ABG pH POC ABG pO2 ABG pO2 ABG HCO3 ABG O2 Saturation ABG Base Excess POC ABG pCO2 ABG Hemoglobin ABG Oxyhemoglobin ABG Glucose Oxyhemoglobin Sodium Potassium Chloride Carbon Dioxide BUN Creatinine Glucose POC Glucose 117 H 136 H 115 H Lactic Acid Calcium Phosphorus Magnesium AST ALT Lactate Dehydrogenase CK-MB (CK-2) C-Reactive Protein NT-Pro-B Natriuret Pep Total Protein Albumin Arterial Blood Glucose Urine WBC (Auto) Urine Creatinine 01/11/20 01/11/20 01/12/20 18:27 23:28 00:23 WBC RBC Hgb 9.8 L Hct 31.6 L MCHC 31 L RDW 17.8 H MCV 83 L MCH 26 L Lymph % (Auto) Gordon % (Auto) 8.0 H Gordon # Eos # Lymph # (Auto) Gordon # (Auto) Eos # (Auto) Seg Neutrophils % Seg Neuts % (Manual) Baso # (Auto) Lymphocytes % (Manual) Monocytes % (Manual) Eosinophils % (Manual) Basophils % (Manual) Seg Neutrophils # Seg Neutrophils # Man Lymphocytes # (Manual) Monocytes # (Manual) Eosinophils # (Manual) Nucleated RBC % Basophils # (Manual) PT INR APTT Heparin Anti-Xa Level ABG pH POC ABG pO2 ABG pO2 ABG HCO3 ABG O2 Saturation ABG Base Excess POC ABG pCO2 ABG Hemoglobin ABG Oxyhemoglobin ABG Glucose Oxyhemoglobin Sodium Potassium Chloride Carbon Dioxide BUN Creatinine Glucose POC Glucose 118 H 122 H Lactic Acid Calcium Phosphorus Magnesium AST ALT Lactate Dehydrogenase CK-MB (CK-2) C-Reactive Protein NT-Pro-B Natriuret Pep Total Protein Albumin Arterial Blood Glucose Urine WBC (Auto) Urine Creatinine 01/12/20 01/12/20 01/12/20 00:23 04:18 04:18 WBC RBC Hgb 9.6 L Hct 30.9 L MCHC 31 L RDW 17.3 H MCV 81 L MCH 25 L Lymph % (Auto) Gordon % (Auto) Gordon # Eos # Lymph # (Auto) Gordon # (Auto) Eos # (Auto) Seg Neutrophils % Seg Neuts % (Manual) Baso # (Auto) Lymphocytes % (Manual) Monocytes % (Manual) Eosinophils % (Manual) Basophils % (Manual) Seg Neutrophils # Seg Neutrophils # Man Lymphocytes # (Manual) Monocytes # (Manual) Eosinophils # (Manual) Nucleated RBC % Basophils # (Manual) PT INR APTT Heparin Anti-Xa Level ABG pH POC ABG pO2 ABG pO2 ABG HCO3 ABG O2 Saturation ABG Base Excess POC ABG pCO2 ABG Hemoglobin ABG Oxyhemoglobin ABG Glucose Oxyhemoglobin Sodium Potassium Chloride Carbon Dioxide BUN Creatinine 0.7 L 0.7 L Glucose 111 H 108 H POC Glucose Lactic Acid Calcium Phosphorus Magnesium AST ALT Lactate Dehydrogenase CK-MB (CK-2) C-Reactive Protein NT-Pro-B Natriuret Pep Total Protein Albumin 2.6 L Arterial Blood Glucose Urine WBC (Auto) Urine Creatinine 01/12/20 01/12/20 01/12/20 06:03 12:27 13:58 WBC RBC Hgb Hct MCHC RDW MCV MCH Lymph % (Auto) Gordon % (Auto) Gordon # Eos # Lymph # (Auto) Gordon # (Auto) Eos # (Auto) Seg Neutrophils % Seg Neuts % (Manual) Baso # (Auto) Lymphocytes % (Manual) Monocytes % (Manual) Eosinophils % (Manual) Basophils % (Manual) Seg Neutrophils # Seg Neutrophils # Man Lymphocytes # (Manual) Monocytes # (Manual) Eosinophils # (Manual) Nucleated RBC % Basophils # (Manual) PT INR APTT Heparin Anti-Xa Level ABG pH 7.453 H POC ABG pO2 76.6 L ABG pO2 ABG HCO3 ABG O2 Saturation ABG Base Excess POC ABG pCO2 ABG Hemoglobin 10.3 L ABG Oxyhemoglobin ABG Glucose 99 H Oxyhemoglobin Sodium Potassium Chloride Carbon Dioxide BUN Creatinine Glucose POC Glucose 128 H 121 H Lactic Acid Calcium Phosphorus Magnesium AST ALT Lactate Dehydrogenase CK-MB (CK-2) C-Reactive Protein NT-Pro-B Natriuret Pep Total Protein Albumin Arterial Blood Glucose 99 H Urine WBC (Auto) Urine Creatinine 01/12/20 01/13/20 01/13/20 18:24 12:01 17:46 WBC RBC Hgb Hct MCHC RDW MCV MCH Lymph % (Auto) Gordon % (Auto) Gordon # Eos # Lymph # (Auto) Gordon # (Auto) Eos # (Auto) Seg Neutrophils % Seg Neuts % (Manual) Baso # (Auto) Lymphocytes % (Manual) Monocytes % (Manual) Eosinophils % (Manual) Basophils % (Manual) Seg Neutrophils # Seg Neutrophils # Man Lymphocytes # (Manual) Monocytes # (Manual) Eosinophils # (Manual) Nucleated RBC % Basophils # (Manual) PT INR APTT Heparin Anti-Xa Level ABG pH POC ABG pO2 ABG pO2 ABG HCO3 ABG O2 Saturation ABG Base Excess POC ABG pCO2 ABG Hemoglobin ABG Oxyhemoglobin ABG Glucose Oxyhemoglobin Sodium Potassium Chloride Carbon Dioxide BUN Creatinine Glucose POC Glucose 119 H 107 H 124 H Lactic Acid Calcium Phosphorus Magnesium AST ALT Lactate Dehydrogenase CK-MB (CK-2) C-Reactive Protein NT-Pro-B Natriuret Pep Total Protein Albumin Arterial Blood Glucose Urine WBC (Auto) Urine Creatinine 01/13/20 01/14/20 01/14/20 20:40 00:10 05:33 WBC RBC Hgb Hct MCHC RDW MCV MCH Lymph % (Auto) Gordon % (Auto) Gordon # Eos # Lymph # (Auto) Gordon # (Auto) Eos # (Auto) Seg Neutrophils % Seg Neuts % (Manual) Baso # (Auto) Lymphocytes % (Manual) Monocytes % (Manual) Eosinophils % (Manual) Basophils % (Manual) Seg Neutrophils # Seg Neutrophils # Man Lymphocytes # (Manual) Monocytes # (Manual) Eosinophils # (Manual) Nucleated RBC % Basophils # (Manual) PT INR APTT Heparin Anti-Xa Level ABG pH POC ABG pO2 ABG pO2 65.3 L ABG HCO3 31.8 H ABG O2 Saturation 93.5 L ABG Base Excess 6.7 H POC ABG pCO2 ABG Hemoglobin 13.3 L ABG Oxyhemoglobin ABG Glucose Oxyhemoglobin 90.9 L Sodium Potassium Chloride Carbon Dioxide BUN Creatinine Glucose POC Glucose 111 H 111 H Lactic Acid Calcium Phosphorus Magnesium AST ALT Lactate Dehydrogenase CK-MB (CK-2) C-Reactive Protein NT-Pro-B Natriuret Pep Total Protein Albumin Arterial Blood Glucose Urine WBC (Auto) Urine Creatinine 01/14/20 01/14/20 01/14/20 12:10 16:14 16:14 WBC RBC Hgb 10.6 L Hct 34.2 L MCHC 31 L RDW 18.3 H MCV 83 L MCH 26 L Lymph % (Auto) Gordon % (Auto) 7.4 H Gordon # Eos # Lymph # (Auto) Gordon # (Auto) Eos # (Auto) Seg Neutrophils % 71.9 H Seg Neuts % (Manual) Baso # (Auto) Lymphocytes % (Manual) Monocytes % (Manual) Eosinophils % (Manual) Basophils % (Manual) Seg Neutrophils # Seg Neutrophils # Man Lymphocytes # (Manual) Monocytes # (Manual) Eosinophils # (Manual) Nucleated RBC % Basophils # (Manual) PT INR APTT Heparin Anti-Xa Level ABG pH POC ABG pO2 ABG pO2 ABG HCO3 ABG O2 Saturation ABG Base Excess POC ABG pCO2 ABG Hemoglobin ABG Oxyhemoglobin ABG Glucose Oxyhemoglobin Sodium Potassium Chloride Carbon Dioxide 31 H BUN Creatinine 0.6 L Glucose 131 H POC Glucose 139 H Lactic Acid Calcium Phosphorus Magnesium AST ALT Lactate Dehydrogenase CK-MB (CK-2) C-Reactive Protein NT-Pro-B Natriuret Pep Total Protein Albumin Arterial Blood Glucose Urine WBC (Auto) Urine Creatinine 01/14/20 01/15/20 01/15/20 18:05 00:52 05:35 WBC RBC Hgb Hct MCHC RDW MCV MCH Lymph % (Auto) Gordon % (Auto) Gordon # Eos # Lymph # (Auto) Gordon # (Auto) Eos # (Auto) Seg Neutrophils % Seg Neuts % (Manual) Baso # (Auto) Lymphocytes % (Manual) Monocytes % (Manual) Eosinophils % (Manual) Basophils % (Manual) Seg Neutrophils # Seg Neutrophils # Man Lymphocytes # (Manual) Monocytes # (Manual) Eosinophils # (Manual) Nucleated RBC % Basophils # (Manual) PT INR APTT Heparin Anti-Xa Level ABG pH POC ABG pO2 ABG pO2 ABG HCO3 ABG O2 Saturation ABG Base Excess POC ABG pCO2 ABG Hemoglobin ABG Oxyhemoglobin ABG Glucose Oxyhemoglobin Sodium Potassium Chloride Carbon Dioxide BUN Creatinine Glucose POC Glucose 147 H 140 H 159 H Lactic Acid Calcium Phosphorus Magnesium AST ALT Lactate Dehydrogenase CK-MB (CK-2) C-Reactive Protein NT-Pro-B Natriuret Pep Total Protein Albumin Arterial Blood Glucose Urine WBC (Auto) Urine Creatinine 01/15/20 01/15/20 01/16/20 12:52 17:43 00:32 WBC RBC Hgb Hct MCHC RDW MCV MCH Lymph % (Auto) Gordon % (Auto) Gordon # Eos # Lymph # (Auto) Gordon # (Auto) Eos # (Auto) Seg Neutrophils % Seg Neuts % (Manual) Baso # (Auto) Lymphocytes % (Manual) Monocytes % (Manual) Eosinophils % (Manual) Basophils % (Manual) Seg Neutrophils # Seg Neutrophils # Man Lymphocytes # (Manual) Monocytes # (Manual) Eosinophils # (Manual) Nucleated RBC % Basophils # (Manual) PT INR APTT Heparin Anti-Xa Level ABG pH POC ABG pO2 ABG pO2 ABG HCO3 ABG O2 Saturation ABG Base Excess POC ABG pCO2 ABG Hemoglobin ABG Oxyhemoglobin ABG Glucose Oxyhemoglobin Sodium Potassium Chloride Carbon Dioxide BUN Creatinine Glucose POC Glucose 164 H 167 H 153 H Lactic Acid Calcium Phosphorus Magnesium AST ALT Lactate Dehydrogenase CK-MB (CK-2) C-Reactive Protein NT-Pro-B Natriuret Pep Total Protein Albumin Arterial Blood Glucose Urine WBC (Auto) Urine Creatinine 01/16/20 01/16/20 01/17/20 05:46 11:48 06:38 WBC RBC Hgb Hct MCHC RDW MCV MCH Lymph % (Auto) Gordon % (Auto) Gordon # Eos # Lymph # (Auto) Gordon # (Auto) Eos # (Auto) Seg Neutrophils % Seg Neuts % (Manual) Baso # (Auto) Lymphocytes % (Manual) Monocytes % (Manual) Eosinophils % (Manual) Basophils % (Manual) Seg Neutrophils # Seg Neutrophils # Man Lymphocytes # (Manual) Monocytes # (Manual) Eosinophils # (Manual) Nucleated RBC % Basophils # (Manual) PT INR APTT Heparin Anti-Xa Level ABG pH POC ABG pO2 ABG pO2 ABG HCO3 ABG O2 Saturation ABG Base Excess POC ABG pCO2 ABG Hemoglobin ABG Oxyhemoglobin ABG Glucose Oxyhemoglobin Sodium Potassium Chloride Carbon Dioxide BUN Creatinine Glucose POC Glucose 163 H 155 H 116 H Lactic Acid Calcium Phosphorus Magnesium AST ALT Lactate Dehydrogenase CK-MB (CK-2) C-Reactive Protein NT-Pro-B Natriuret Pep Total Protein Albumin Arterial Blood Glucose Urine WBC (Auto) Urine Creatinine 01/17/20 01/17/20 01/18/20 11:36 17:43 00:12 WBC RBC Hgb Hct MCHC RDW MCV MCH Lymph % (Auto) Gordon % (Auto) Gordon # Eos # Lymph # (Auto) Gordon # (Auto) Eos # (Auto) Seg Neutrophils % Seg Neuts % (Manual) Baso # (Auto) Lymphocytes % (Manual) Monocytes % (Manual) Eosinophils % (Manual) Basophils % (Manual) Seg Neutrophils # Seg Neutrophils # Man Lymphocytes # (Manual) Monocytes # (Manual) Eosinophils # (Manual) Nucleated RBC % Basophils # (Manual) PT INR APTT Heparin Anti-Xa Level ABG pH POC ABG pO2 ABG pO2 ABG HCO3 ABG O2 Saturation ABG Base Excess POC ABG pCO2 ABG Hemoglobin ABG Oxyhemoglobin ABG Glucose Oxyhemoglobin Sodium Potassium Chloride Carbon Dioxide BUN Creatinine Glucose POC Glucose 110 H 134 H 108 H Lactic Acid Calcium Phosphorus Magnesium AST ALT Lactate Dehydrogenase CK-MB (CK-2) C-Reactive Protein NT-Pro-B Natriuret Pep Total Protein Albumin Arterial Blood Glucose Urine WBC (Auto) Urine Creatinine 01/18/20 01/18/20 01/18/20 05:37 06:46 06:46 WBC RBC Hgb 10.1 L Hct 32.2 L MCHC 31 L RDW 18.1 H MCV 81 L MCH 25 L Lymph % (Auto) Gordon % (Auto) Gordon # Eos # Lymph # (Auto) Gordon # (Auto) Eos # (Auto) Seg Neutrophils % 71.9 H Seg Neuts % (Manual) Baso # (Auto) Lymphocytes % (Manual) Monocytes % (Manual) Eosinophils % (Manual) Basophils % (Manual) Seg Neutrophils # Seg Neutrophils # Man Lymphocytes # (Manual) Monocytes # (Manual) Eosinophils # (Manual) Nucleated RBC % Basophils # (Manual) PT INR APTT Heparin Anti-Xa Level ABG pH POC ABG pO2 ABG pO2 ABG HCO3 ABG O2 Saturation ABG Base Excess POC ABG pCO2 ABG Hemoglobin ABG Oxyhemoglobin ABG Glucose Oxyhemoglobin Sodium Potassium Chloride Carbon Dioxide BUN Creatinine 0.7 L Glucose 155 H POC Glucose 168 H Lactic Acid Calcium Phosphorus Magnesium AST ALT Lactate Dehydrogenase CK-MB (CK-2) C-Reactive Protein NT-Pro-B Natriuret Pep Total Protein Albumin Arterial Blood Glucose Urine WBC (Auto) Urine Creatinine 01/18/20 01/18/20 01/18/20 12:05 17:14 23:28 WBC RBC Hgb Hct MCHC RDW MCV MCH Lymph % (Auto) Gordon % (Auto) Gordon # Eos # Lymph # (Auto) Gordon # (Auto) Eos # (Auto) Seg Neutrophils % Seg Neuts % (Manual) Baso # (Auto) Lymphocytes % (Manual) Monocytes % (Manual) Eosinophils % (Manual) Basophils % (Manual) Seg Neutrophils # Seg Neutrophils # Man Lymphocytes # (Manual) Monocytes # (Manual) Eosinophils # (Manual) Nucleated RBC % Basophils # (Manual) PT INR APTT Heparin Anti-Xa Level ABG pH POC ABG pO2 ABG pO2 ABG HCO3 ABG O2 Saturation ABG Base Excess POC ABG pCO2 ABG Hemoglobin ABG Oxyhemoglobin ABG Glucose Oxyhemoglobin Sodium Potassium Chloride Carbon Dioxide BUN Creatinine Glucose POC Glucose 128 H 126 H 128 H Lactic Acid Calcium Phosphorus Magnesium AST ALT Lactate Dehydrogenase CK-MB (CK-2) C-Reactive Protein NT-Pro-B Natriuret Pep Total Protein Albumin Arterial Blood Glucose Urine WBC (Auto) Urine Creatinine 01/19/20 01/19/20 01/19/20 05:39 12:33 17:36 WBC RBC Hgb Hct MCHC RDW MCV MCH Lymph % (Auto) Gordon % (Auto) Gordon # Eos # Lymph # (Auto) Gordon # (Auto) Eos # (Auto) Seg Neutrophils % Seg Neuts % (Manual) Baso # (Auto) Lymphocytes % (Manual) Monocytes % (Manual) Eosinophils % (Manual) Basophils % (Manual) Seg Neutrophils # Seg Neutrophils # Man Lymphocytes # (Manual) Monocytes # (Manual) Eosinophils # (Manual) Nucleated RBC % Basophils # (Manual) PT INR APTT Heparin Anti-Xa Level ABG pH POC ABG pO2 ABG pO2 ABG HCO3 ABG O2 Saturation ABG Base Excess POC ABG pCO2 ABG Hemoglobin ABG Oxyhemoglobin ABG Glucose Oxyhemoglobin Sodium Potassium Chloride Carbon Dioxide BUN Creatinine Glucose POC Glucose 164 H 171 H 152 H Lactic Acid Calcium Phosphorus Magnesium AST ALT Lactate Dehydrogenase CK-MB (CK-2) C-Reactive Protein NT-Pro-B Natriuret Pep Total Protein Albumin Arterial Blood Glucose Urine WBC (Auto) Urine Creatinine 01/20/20 01/20/20 01/20/20 00:12 05:20 05:35 WBC RBC Hgb 9.2 L Hct 29.4 L MCHC 31 L RDW 17.9 H MCV 81 L MCH 25 L Lymph % (Auto) Gordon % (Auto) Gordon # Eos # Lymph # (Auto) Gordon # (Auto) Eos # (Auto) Seg Neutrophils % Seg Neuts % (Manual) Baso # (Auto) Lymphocytes % (Manual) Monocytes % (Manual) Eosinophils % (Manual) Basophils % (Manual) Seg Neutrophils # Seg Neutrophils # Man Lymphocytes # (Manual) Monocytes # (Manual) Eosinophils # (Manual) Nucleated RBC % Basophils # (Manual) PT INR APTT Heparin Anti-Xa Level ABG pH POC ABG pO2 ABG pO2 ABG HCO3 ABG O2 Saturation ABG Base Excess POC ABG pCO2 ABG Hemoglobin ABG Oxyhemoglobin ABG Glucose Oxyhemoglobin Sodium Potassium Chloride Carbon Dioxide BUN Creatinine Glucose POC Glucose 120 H 136 H Lactic Acid Calcium Phosphorus Magnesium AST ALT Lactate Dehydrogenase CK-MB (CK-2) C-Reactive Protein NT-Pro-B Natriuret Pep Total Protein Albumin Arterial Blood Glucose Urine WBC (Auto) Urine Creatinine 01/20/20 01/20/20 01/20/20 05:40 11:58 14:55 WBC RBC Hgb 9.0 L Hct 28.3 L MCHC RDW MCV MCH Lymph % (Auto) Gordon % (Auto) Gordon # Eos # Lymph # (Auto) Gordon # (Auto) Eos # (Auto) Seg Neutrophils % Seg Neuts % (Manual) Baso # (Auto) Lymphocytes % (Manual) Monocytes % (Manual) Eosinophils % (Manual) Basophils % (Manual) Seg Neutrophils # Seg Neutrophils # Man Lymphocytes # (Manual) Monocytes # (Manual) Eosinophils # (Manual) Nucleated RBC % Basophils # (Manual) PT INR APTT Heparin Anti-Xa Level ABG pH POC ABG pO2 ABG pO2 ABG HCO3 ABG O2 Saturation ABG Base Excess POC ABG pCO2 ABG Hemoglobin ABG Oxyhemoglobin ABG Glucose Oxyhemoglobin Sodium Potassium Chloride Carbon Dioxide 32 H BUN 22 H Creatinine 0.7 L Glucose 128 H POC Glucose 152 H Lactic Acid Calcium Phosphorus Magnesium AST ALT Lactate Dehydrogenase CK-MB (CK-2) C-Reactive Protein NT-Pro-B Natriuret Pep Total Protein Albumin Arterial Blood Glucose Urine WBC (Auto) Urine Creatinine 01/20/20 01/20/20 01/20/20 14:55 18:14 21:35 WBC RBC Hgb Hct MCHC RDW MCV MCH Lymph % (Auto) Gordon % (Auto) Gordon # Eos # Lymph # (Auto) Gordon # (Auto) Eos # (Auto) Seg Neutrophils % Seg Neuts % (Manual) Baso # (Auto) Lymphocytes % (Manual) Monocytes % (Manual) Eosinophils % (Manual) Basophils % (Manual) Seg Neutrophils # Seg Neutrophils # Man Lymphocytes # (Manual) Monocytes # (Manual) Eosinophils # (Manual) Nucleated RBC % Basophils # (Manual) PT 20.4 H INR 1.72 H APTT 40.6 H Heparin Anti-Xa Level > 2.00 H ABG pH POC ABG pO2 ABG pO2 ABG HCO3 ABG O2 Saturation ABG Base Excess POC ABG pCO2 ABG Hemoglobin ABG Oxyhemoglobin ABG Glucose Oxyhemoglobin Sodium Potassium Chloride Carbon Dioxide BUN Creatinine Glucose POC Glucose 150 H Lactic Acid Calcium Phosphorus Magnesium AST ALT Lactate Dehydrogenase CK-MB (CK-2) C-Reactive Protein NT-Pro-B Natriuret Pep Total Protein Albumin Arterial Blood Glucose Urine WBC (Auto) Urine Creatinine 01/21/20 01/21/20 01/21/20 00:30 05:47 05:59 WBC RBC Hgb Hct MCHC RDW MCV MCH Lymph % (Auto) Gordon % (Auto) Gordon # Eos # Lymph # (Auto) Gordon # (Auto) Eos # (Auto) Seg Neutrophils % Seg Neuts % (Manual) Baso # (Auto) Lymphocytes % (Manual) Monocytes % (Manual) Eosinophils % (Manual) Basophils % (Manual) Seg Neutrophils # Seg Neutrophils # Man Lymphocytes # (Manual) Monocytes # (Manual) Eosinophils # (Manual) Nucleated RBC % Basophils # (Manual) PT INR APTT Heparin Anti-Xa Level 1.93 H ABG pH POC ABG pO2 ABG pO2 ABG HCO3 ABG O2 Saturation ABG Base Excess POC ABG pCO2 ABG Hemoglobin ABG Oxyhemoglobin ABG Glucose Oxyhemoglobin Sodium Potassium Chloride Carbon Dioxide BUN Creatinine Glucose POC Glucose 126 H 148 H Lactic Acid Calcium Phosphorus Magnesium AST ALT Lactate Dehydrogenase CK-MB (CK-2) C-Reactive Protein NT-Pro-B Natriuret Pep Total Protein Albumin Arterial Blood Glucose Urine WBC (Auto) Urine Creatinine 01/21/20 01/21/20 01/21/20 12:32 18:20 23:54 WBC RBC Hgb Hct MCHC RDW MCV MCH Lymph % (Auto) Gordon % (Auto) Gordon # Eos # Lymph # (Auto) Gordon # (Auto) Eos # (Auto) Seg Neutrophils % Seg Neuts % (Manual) Baso # (Auto) Lymphocytes % (Manual) Monocytes % (Manual) Eosinophils % (Manual) Basophils % (Manual) Seg Neutrophils # Seg Neutrophils # Man Lymphocytes # (Manual) Monocytes # (Manual) Eosinophils # (Manual) Nucleated RBC % Basophils # (Manual) PT INR APTT Heparin Anti-Xa Level 1.28 H ABG pH POC ABG pO2 ABG pO2 ABG HCO3 ABG O2 Saturation ABG Base Excess POC ABG pCO2 ABG Hemoglobin ABG Oxyhemoglobin ABG Glucose Oxyhemoglobin Sodium Potassium Chloride Carbon Dioxide BUN Creatinine Glucose POC Glucose 112 H 146 H Lactic Acid Calcium Phosphorus Magnesium AST ALT Lactate Dehydrogenase CK-MB (CK-2) C-Reactive Protein NT-Pro-B Natriuret Pep Total Protein Albumin Arterial Blood Glucose Urine WBC (Auto) Urine Creatinine 01/22/20 01/22/20 01/22/20 04:45 04:45 05:48 WBC RBC Hgb 9.3 L Hct 29.0 L MCHC RDW MCV MCH Lymph % (Auto) Gordon % (Auto) Gordon # Eos # Lymph # (Auto) Gordon # (Auto) Eos # (Auto) Seg Neutrophils % Seg Neuts % (Manual) Baso # (Auto) Lymphocytes % (Manual) Monocytes % (Manual) Eosinophils % (Manual) Basophils % (Manual) Seg Neutrophils # Seg Neutrophils # Man Lymphocytes # (Manual) Monocytes # (Manual) Eosinophils # (Manual) Nucleated RBC % Basophils # (Manual) PT INR APTT Heparin Anti-Xa Level 1.34 H ABG pH POC ABG pO2 ABG pO2 ABG HCO3 ABG O2 Saturation ABG Base Excess POC ABG pCO2 ABG Hemoglobin ABG Oxyhemoglobin ABG Glucose Oxyhemoglobin Sodium Potassium Chloride Carbon Dioxide BUN Creatinine Glucose POC Glucose 142 H Lactic Acid Calcium Phosphorus Magnesium AST ALT Lactate Dehydrogenase CK-MB (CK-2) C-Reactive Protein NT-Pro-B Natriuret Pep Total Protein Albumin Arterial Blood Glucose Urine WBC (Auto) Urine Creatinine 01/22/20 01/22/20 01/22/20 08:09 08:22 09:58 WBC RBC Hgb Hct MCHC RDW MCV MCH Lymph % (Auto) Gordon % (Auto) Gordon # Eos # Lymph # (Auto) Gordon # (Auto) Eos # (Auto) Seg Neutrophils % Seg Neuts % (Manual) Baso # (Auto) Lymphocytes % (Manual) Monocytes % (Manual) Eosinophils % (Manual) Basophils % (Manual) Seg Neutrophils # Seg Neutrophils # Man Lymphocytes # (Manual) Monocytes # (Manual) Eosinophils # (Manual) Nucleated RBC % Basophils # (Manual) PT 16.9 H INR 1.34 H APTT Heparin Anti-Xa Level ABG pH POC ABG pO2 ABG pO2 ABG HCO3 ABG O2 Saturation ABG Base Excess POC ABG pCO2 ABG Hemoglobin ABG Oxyhemoglobin ABG Glucose Oxyhemoglobin Sodium Potassium Chloride 97.8 L Carbon Dioxide BUN 29 H Creatinine Glucose 128 H POC Glucose 131 H Lactic Acid Calcium Phosphorus Magnesium AST ALT Lactate Dehydrogenase CK-MB (CK-2) C-Reactive Protein NT-Pro-B Natriuret Pep Total Protein Albumin Arterial Blood Glucose Urine WBC (Auto) Urine Creatinine 01/22/20 01/22/20 01/22/20 12:44 16:13 18:18 WBC RBC Hgb Hct MCHC RDW MCV MCH Lymph % (Auto) Gordon % (Auto) Gordon # Eos # Lymph # (Auto) Gordon # (Auto) Eos # (Auto) Seg Neutrophils % Seg Neuts % (Manual) Baso # (Auto) Lymphocytes % (Manual) Monocytes % (Manual) Eosinophils % (Manual) Basophils % (Manual) Seg Neutrophils # Seg Neutrophils # Man Lymphocytes # (Manual) Monocytes # (Manual) Eosinophils # (Manual) Nucleated RBC % Basophils # (Manual) PT INR APTT Heparin Anti-Xa Level ABG pH POC ABG pO2 ABG pO2 ABG HCO3 ABG O2 Saturation ABG Base Excess POC ABG pCO2 ABG Hemoglobin ABG Oxyhemoglobin ABG Glucose Oxyhemoglobin Sodium Potassium Chloride Carbon Dioxide BUN Creatinine Glucose POC Glucose 156 H 133 H 155 H Lactic Acid Calcium Phosphorus Magnesium AST ALT Lactate Dehydrogenase CK-MB (CK-2) C-Reactive Protein NT-Pro-B Natriuret Pep Total Protein Albumin Arterial Blood Glucose Urine WBC (Auto) Urine Creatinine 01/22/20 01/23/20 01/23/20 23:22 05:37 12:59 WBC RBC Hgb Hct MCHC RDW MCV MCH Lymph % (Auto) Gordon % (Auto) Gordon # Eos # Lymph # (Auto) Gordon # (Auto) Eos # (Auto) Seg Neutrophils % Seg Neuts % (Manual) Baso # (Auto) Lymphocytes % (Manual) Monocytes % (Manual) Eosinophils % (Manual) Basophils % (Manual) Seg Neutrophils # Seg Neutrophils # Man Lymphocytes # (Manual) Monocytes # (Manual) Eosinophils # (Manual) Nucleated RBC % Basophils # (Manual) PT INR APTT Heparin Anti-Xa Level ABG pH POC ABG pO2 ABG pO2 ABG HCO3 ABG O2 Saturation ABG Base Excess POC ABG pCO2 ABG Hemoglobin ABG Oxyhemoglobin ABG Glucose Oxyhemoglobin Sodium Potassium Chloride Carbon Dioxide BUN Creatinine Glucose POC Glucose 148 H 163 H 175 H Lactic Acid Calcium Phosphorus Magnesium AST ALT Lactate Dehydrogenase CK-MB (CK-2) C-Reactive Protein NT-Pro-B Natriuret Pep Total Protein Albumin Arterial Blood Glucose Urine WBC (Auto) Urine Creatinine 01/23/20 01/23/20 01/24/20 17:28 23:56 04:30 WBC RBC 3.46 L Hgb 8.8 L Hct 27.8 L MCHC RDW 18.2 H MCV 81 L MCH 25 L Lymph % (Auto) Gordon % (Auto) 7.8 H Gordon # Eos # Lymph # (Auto) Gordon # (Auto) Eos # (Auto) Seg Neutrophils % Seg Neuts % (Manual) Baso # (Auto) Lymphocytes % (Manual) Monocytes % (Manual) Eosinophils % (Manual) Basophils % (Manual) Seg Neutrophils # Seg Neutrophils # Man Lymphocytes # (Manual) Monocytes # (Manual) Eosinophils # (Manual) Nucleated RBC % Basophils # (Manual) PT INR APTT Heparin Anti-Xa Level ABG pH POC ABG pO2 ABG pO2 ABG HCO3 ABG O2 Saturation ABG Base Excess POC ABG pCO2 ABG Hemoglobin ABG Oxyhemoglobin ABG Glucose Oxyhemoglobin Sodium Potassium Chloride Carbon Dioxide BUN Creatinine Glucose POC Glucose 165 H 177 H Lactic Acid Calcium Phosphorus Magnesium AST ALT Lactate Dehydrogenase CK-MB (CK-2) C-Reactive Protein NT-Pro-B Natriuret Pep Total Protein Albumin Arterial Blood Glucose Urine WBC (Auto) Urine Creatinine 01/24/20 01/24/20 01/24/20 04:30 07:18 12:06 WBC RBC Hgb Hct MCHC RDW MCV MCH Lymph % (Auto) Gordon % (Auto) Gordon # Eos # Lymph # (Auto) Gordon # (Auto) Eos # (Auto) Seg Neutrophils % Seg Neuts % (Manual) Baso # (Auto) Lymphocytes % (Manual) Monocytes % (Manual) Eosinophils % (Manual) Basophils % (Manual) Seg Neutrophils # Seg Neutrophils # Man Lymphocytes # (Manual) Monocytes # (Manual) Eosinophils # (Manual) Nucleated RBC % Basophils # (Manual) PT INR APTT Heparin Anti-Xa Level ABG pH POC ABG pO2 ABG pO2 ABG HCO3 ABG O2 Saturation ABG Base Excess POC ABG pCO2 ABG Hemoglobin ABG Oxyhemoglobin ABG Glucose Oxyhemoglobin Sodium Potassium Chloride 97.9 L Carbon Dioxide BUN 31 H Creatinine Glucose 146 H POC Glucose 151 H 133 H Lactic Acid Calcium Phosphorus Magnesium AST ALT Lactate Dehydrogenase CK-MB (CK-2) C-Reactive Protein NT-Pro-B Natriuret Pep Total Protein Albumin Arterial Blood Glucose Urine WBC (Auto) Urine Creatinine 01/24/20 01/25/20 01/25/20 17:36 00:08 04:25 WBC RBC 3.50 L Hgb 8.7 L Hct 27.9 L MCHC 31 L RDW 18.2 H MCV 80 L MCH 25 L Lymph % (Auto) Gordon % (Auto) 8.5 H Gordon # Eos # Lymph # (Auto) Gordon # (Auto) Eos # (Auto) Seg Neutrophils % Seg Neuts % (Manual) Baso # (Auto) Lymphocytes % (Manual) Monocytes % (Manual) Eosinophils % (Manual) Basophils % (Manual) Seg Neutrophils # Seg Neutrophils # Man Lymphocytes # (Manual) Monocytes # (Manual) Eosinophils # (Manual) Nucleated RBC % Basophils # (Manual) PT INR APTT Heparin Anti-Xa Level ABG pH POC ABG pO2 ABG pO2 ABG HCO3 ABG O2 Saturation ABG Base Excess POC ABG pCO2 ABG Hemoglobin ABG Oxyhemoglobin ABG Glucose Oxyhemoglobin Sodium Potassium Chloride Carbon Dioxide BUN Creatinine Glucose POC Glucose 133 H 129 H Lactic Acid Calcium Phosphorus Magnesium AST ALT Lactate Dehydrogenase CK-MB (CK-2) C-Reactive Protein NT-Pro-B Natriuret Pep Total Protein Albumin Arterial Blood Glucose Urine WBC (Auto) Urine Creatinine 01/25/20 01/25/20 01/25/20 04:25 05:38 11:52 WBC RBC Hgb Hct MCHC RDW MCV MCH Lymph % (Auto) Gordon % (Auto) Gordon # Eos # Lymph # (Auto) Gordon # (Auto) Eos # (Auto) Seg Neutrophils % Seg Neuts % (Manual) Baso # (Auto) Lymphocytes % (Manual) Monocytes % (Manual) Eosinophils % (Manual) Basophils % (Manual) Seg Neutrophils # Seg Neutrophils # Man Lymphocytes # (Manual) Monocytes # (Manual) Eosinophils # (Manual) Nucleated RBC % Basophils # (Manual) PT INR APTT Heparin Anti-Xa Level ABG pH POC ABG pO2 ABG pO2 ABG HCO3 ABG O2 Saturation ABG Base Excess POC ABG pCO2 ABG Hemoglobin ABG Oxyhemoglobin ABG Glucose Oxyhemoglobin Sodium Potassium Chloride Carbon Dioxide BUN 30 H Creatinine Glucose 134 H POC Glucose 129 H 134 H Lactic Acid Calcium Phosphorus Magnesium AST ALT Lactate Dehydrogenase CK-MB (CK-2) C-Reactive Protein NT-Pro-B Natriuret Pep Total Protein Albumin Arterial Blood Glucose Urine WBC (Auto) Urine Creatinine 01/25/20 01/25/20 01/26/20 17:13 21:02 00:59 WBC RBC Hgb Hct MCHC RDW MCV MCH Lymph % (Auto) Gordon % (Auto) Gordon # Eos # Lymph # (Auto) Gordon # (Auto) Eos # (Auto) Seg Neutrophils % Seg Neuts % (Manual) Baso # (Auto) Lymphocytes % (Manual) Monocytes % (Manual) Eosinophils % (Manual) Basophils % (Manual) Seg Neutrophils # Seg Neutrophils # Man Lymphocytes # (Manual) Monocytes # (Manual) Eosinophils # (Manual) Nucleated RBC % Basophils # (Manual) PT INR APTT Heparin Anti-Xa Level ABG pH POC ABG pO2 ABG pO2 57.5 L ABG HCO3 31.7 H ABG O2 Saturation 90.3 L ABG Base Excess 6.6 H POC ABG pCO2 ABG Hemoglobin 13.0 L ABG Oxyhemoglobin ABG Glucose Oxyhemoglobin 87.5 L Sodium Potassium Chloride Carbon Dioxide BUN Creatinine Glucose POC Glucose 124 H 196 H Lactic Acid Calcium Phosphorus Magnesium AST ALT Lactate Dehydrogenase CK-MB (CK-2) C-Reactive Protein NT-Pro-B Natriuret Pep Total Protein Albumin Arterial Blood Glucose Urine WBC (Auto) Urine Creatinine 01/26/20 01/26/20 01/26/20 03:20 05:46 12:46 WBC RBC Hgb 9.2 L Hct 29.4 L MCHC RDW MCV MCH Lymph % (Auto) Gordon % (Auto) Gordon # Eos # Lymph # (Auto) Gordon # (Auto) Eos # (Auto) Seg Neutrophils % Seg Neuts % (Manual) Baso # (Auto) Lymphocytes % (Manual) Monocytes % (Manual) Eosinophils % (Manual) Basophils % (Manual) Seg Neutrophils # Seg Neutrophils # Man Lymphocytes # (Manual) Monocytes # (Manual) Eosinophils # (Manual) Nucleated RBC % Basophils # (Manual) PT INR APTT Heparin Anti-Xa Level ABG pH POC ABG pO2 ABG pO2 ABG HCO3 ABG O2 Saturation ABG Base Excess POC ABG pCO2 ABG Hemoglobin ABG Oxyhemoglobin ABG Glucose Oxyhemoglobin Sodium Potassium Chloride Carbon Dioxide BUN Creatinine Glucose POC Glucose 141 H 122 H Lactic Acid Calcium Phosphorus Magnesium AST ALT Lactate Dehydrogenase CK-MB (CK-2) C-Reactive Protein NT-Pro-B Natriuret Pep Total Protein Albumin Arterial Blood Glucose Urine WBC (Auto) Urine Creatinine 01/26/20 01/26/20 01/27/20 18:03 23:55 04:47 WBC RBC Hgb Hct MCHC RDW MCV MCH Lymph % (Auto) Gordon % (Auto) Gordon # Eos # Lymph # (Auto) Gordon # (Auto) Eos # (Auto) Seg Neutrophils % Seg Neuts % (Manual) Baso # (Auto) Lymphocytes % (Manual) Monocytes % (Manual) Eosinophils % (Manual) Basophils % (Manual) Seg Neutrophils # Seg Neutrophils # Man Lymphocytes # (Manual) Monocytes # (Manual) Eosinophils # (Manual) Nucleated RBC % Basophils # (Manual) PT INR APTT Heparin Anti-Xa Level ABG pH POC ABG pO2 ABG pO2 ABG HCO3 ABG O2 Saturation ABG Base Excess POC ABG pCO2 ABG Hemoglobin ABG Oxyhemoglobin ABG Glucose Oxyhemoglobin Sodium Potassium Chloride Carbon Dioxide BUN 30 H Creatinine 0.7 L Glucose 135 H POC Glucose 142 H 159 H Lactic Acid Calcium Phosphorus Magnesium AST ALT Lactate Dehydrogenase CK-MB (CK-2) C-Reactive Protein NT-Pro-B Natriuret Pep Total Protein Albumin Arterial Blood Glucose Urine WBC (Auto) Urine Creatinine 01/27/20 01/27/20 01/27/20 05:43 12:06 17:16 WBC RBC Hgb Hct MCHC RDW MCV MCH Lymph % (Auto) Gordon % (Auto) Gordon # Eos # Lymph # (Auto) Gordon # (Auto) Eos # (Auto) Seg Neutrophils % Seg Neuts % (Manual) Baso # (Auto) Lymphocytes % (Manual) Monocytes % (Manual) Eosinophils % (Manual) Basophils % (Manual) Seg Neutrophils # Seg Neutrophils # Man Lymphocytes # (Manual) Monocytes # (Manual) Eosinophils # (Manual) Nucleated RBC % Basophils # (Manual) PT INR APTT Heparin Anti-Xa Level ABG pH POC ABG pO2 ABG pO2 ABG HCO3 ABG O2 Saturation ABG Base Excess POC ABG pCO2 ABG Hemoglobin ABG Oxyhemoglobin ABG Glucose Oxyhemoglobin Sodium Potassium Chloride Carbon Dioxide BUN Creatinine Glucose POC Glucose 143 H 142 H 128 H Lactic Acid Calcium Phosphorus Magnesium AST ALT Lactate Dehydrogenase CK-MB (CK-2) C-Reactive Protein NT-Pro-B Natriuret Pep Total Protein Albumin Arterial Blood Glucose Urine WBC (Auto) Urine Creatinine 01/27/20 01/28/20 01/28/20 23:55 04:37 05:55 WBC RBC Hgb 9.4 L Hct 29.9 L MCHC RDW MCV MCH Lymph % (Auto) Gordon % (Auto) Gordon # Eos # Lymph # (Auto) Gordon # (Auto) Eos # (Auto) Seg Neutrophils % Seg Neuts % (Manual) Baso # (Auto) Lymphocytes % (Manual) Monocytes % (Manual) Eosinophils % (Manual) Basophils % (Manual) Seg Neutrophils # Seg Neutrophils # Man Lymphocytes # (Manual) Monocytes # (Manual) Eosinophils # (Manual) Nucleated RBC % Basophils # (Manual) PT INR APTT Heparin Anti-Xa Level ABG pH POC ABG pO2 ABG pO2 ABG HCO3 ABG O2 Saturation ABG Base Excess POC ABG pCO2 ABG Hemoglobin ABG Oxyhemoglobin ABG Glucose Oxyhemoglobin Sodium Potassium Chloride Carbon Dioxide BUN Creatinine Glucose POC Glucose 166 H 169 H Lactic Acid Calcium Phosphorus Magnesium AST ALT Lactate Dehydrogenase CK-MB (CK-2) C-Reactive Protein NT-Pro-B Natriuret Pep Total Protein Albumin Arterial Blood Glucose Urine WBC (Auto) Urine Creatinine 01/28/20 01/28/20 01/28/20 11:58 17:26 23:46 WBC RBC Hgb Hct MCHC RDW MCV MCH Lymph % (Auto) Gordon % (Auto) Gordon # Eos # Lymph # (Auto) Gordon # (Auto) Eos # (Auto) Seg Neutrophils % Seg Neuts % (Manual) Baso # (Auto) Lymphocytes % (Manual) Monocytes % (Manual) Eosinophils % (Manual) Basophils % (Manual) Seg Neutrophils # Seg Neutrophils # Man Lymphocytes # (Manual) Monocytes # (Manual) Eosinophils # (Manual) Nucleated RBC % Basophils # (Manual) PT INR APTT Heparin Anti-Xa Level ABG pH POC ABG pO2 ABG pO2 ABG HCO3 ABG O2 Saturation ABG Base Excess POC ABG pCO2 ABG Hemoglobin ABG Oxyhemoglobin ABG Glucose Oxyhemoglobin Sodium Potassium Chloride Carbon Dioxide BUN Creatinine Glucose POC Glucose 130 H 126 H 150 H Lactic Acid Calcium Phosphorus Magnesium AST ALT Lactate Dehydrogenase CK-MB (CK-2) C-Reactive Protein NT-Pro-B Natriuret Pep Total Protein Albumin Arterial Blood Glucose Urine WBC (Auto) Urine Creatinine 01/29/20 01/29/20 01/29/20 04:55 06:00 12:28 WBC RBC Hgb Hct MCHC RDW MCV MCH Lymph % (Auto) Gordon % (Auto) Gordon # Eos # Lymph # (Auto) Gordon # (Auto) Eos # (Auto) Seg Neutrophils % Seg Neuts % (Manual) Baso # (Auto) Lymphocytes % (Manual) Monocytes % (Manual) Eosinophils % (Manual) Basophils % (Manual) Seg Neutrophils # Seg Neutrophils # Man Lymphocytes # (Manual) Monocytes # (Manual) Eosinophils # (Manual) Nucleated RBC % Basophils # (Manual) PT INR APTT Heparin Anti-Xa Level ABG pH POC ABG pO2 ABG pO2 ABG HCO3 ABG O2 Saturation ABG Base Excess POC ABG pCO2 ABG Hemoglobin ABG Oxyhemoglobin ABG Glucose Oxyhemoglobin Sodium Potassium Chloride Carbon Dioxide 34 H BUN Creatinine 0.6 L Glucose 152 H POC Glucose 157 H 156 H Lactic Acid Calcium Phosphorus Magnesium AST ALT Lactate Dehydrogenase CK-MB (CK-2) C-Reactive Protein NT-Pro-B Natriuret Pep Total Protein Albumin Arterial Blood Glucose Urine WBC (Auto) Urine Creatinine 01/29/20 01/30/20 01/30/20 19:06 00:29 05:39 WBC RBC Hgb Hct MCHC RDW MCV MCH Lymph % (Auto) Gordon % (Auto) Gordon # Eos # Lymph # (Auto) Gordon # (Auto) Eos # (Auto) Seg Neutrophils % Seg Neuts % (Manual) Baso # (Auto) Lymphocytes % (Manual) Monocytes % (Manual) Eosinophils % (Manual) Basophils % (Manual) Seg Neutrophils # Seg Neutrophils # Man Lymphocytes # (Manual) Monocytes # (Manual) Eosinophils # (Manual) Nucleated RBC % Basophils # (Manual) PT INR APTT Heparin Anti-Xa Level ABG pH POC ABG pO2 ABG pO2 ABG HCO3 ABG O2 Saturation ABG Base Excess POC ABG pCO2 ABG Hemoglobin ABG Oxyhemoglobin ABG Glucose Oxyhemoglobin Sodium Potassium Chloride Carbon Dioxide BUN Creatinine Glucose POC Glucose 152 H 132 H 159 H Lactic Acid Calcium Phosphorus Magnesium AST ALT Lactate Dehydrogenase CK-MB (CK-2) C-Reactive Protein NT-Pro-B Natriuret Pep Total Protein Albumin Arterial Blood Glucose Urine WBC (Auto) Urine Creatinine 01/30/20 01/30/20 01/30/20 12:27 17:42 23:28 WBC RBC Hgb Hct MCHC RDW MCV MCH Lymph % (Auto) Gordon % (Auto) Gordon # Eos # Lymph # (Auto) Gordon # (Auto) Eos # (Auto) Seg Neutrophils % Seg Neuts % (Manual) Baso # (Auto) Lymphocytes % (Manual) Monocytes % (Manual) Eosinophils % (Manual) Basophils % (Manual) Seg Neutrophils # Seg Neutrophils # Man Lymphocytes # (Manual) Monocytes # (Manual) Eosinophils # (Manual) Nucleated RBC % Basophils # (Manual) PT INR APTT Heparin Anti-Xa Level ABG pH POC ABG pO2 ABG pO2 ABG HCO3 ABG O2 Saturation ABG Base Excess POC ABG pCO2 ABG Hemoglobin ABG Oxyhemoglobin ABG Glucose Oxyhemoglobin Sodium Potassium Chloride Carbon Dioxide BUN Creatinine Glucose POC Glucose 151 H 144 H 164 H Lactic Acid Calcium Phosphorus Magnesium AST ALT Lactate Dehydrogenase CK-MB (CK-2) C-Reactive Protein NT-Pro-B Natriuret Pep Total Protein Albumin Arterial Blood Glucose Urine WBC (Auto) Urine Creatinine 01/31/20 01/31/20 01/31/20 05:51 11:51 18:06 WBC RBC Hgb Hct MCHC RDW MCV MCH Lymph % (Auto) Gordon % (Auto) Gordon # Eos # Lymph # (Auto) Gordon # (Auto) Eos # (Auto) Seg Neutrophils % Seg Neuts % (Manual) Baso # (Auto) Lymphocytes % (Manual) Monocytes % (Manual) Eosinophils % (Manual) Basophils % (Manual) Seg Neutrophils # Seg Neutrophils # Man Lymphocytes # (Manual) Monocytes # (Manual) Eosinophils # (Manual) Nucleated RBC % Basophils # (Manual) PT INR APTT Heparin Anti-Xa Level ABG pH POC ABG pO2 ABG pO2 ABG HCO3 ABG O2 Saturation ABG Base Excess POC ABG pCO2 ABG Hemoglobin ABG Oxyhemoglobin ABG Glucose Oxyhemoglobin Sodium Potassium Chloride Carbon Dioxide BUN Creatinine Glucose POC Glucose 131 H 167 H 210 H Lactic Acid Calcium Phosphorus Magnesium AST ALT Lactate Dehydrogenase CK-MB (CK-2) C-Reactive Protein NT-Pro-B Natriuret Pep Total Protein Albumin Arterial Blood Glucose Urine WBC (Auto) Urine Creatinine 01/31/20 01/31/20 02/01/20 19:24 Unknown 00:34 WBC RBC Hgb Hct MCHC RDW MCV MCH Lymph % (Auto) Gordon % (Auto) Gordon # Eos # Lymph # (Auto) Gordon # (Auto) Eos # (Auto) Seg Neutrophils % Seg Neuts % (Manual) Baso # (Auto) Lymphocytes % (Manual) Monocytes % (Manual) Eosinophils % (Manual) Basophils % (Manual) Seg Neutrophils # Seg Neutrophils # Man Lymphocytes # (Manual) Monocytes # (Manual) Eosinophils # (Manual) Nucleated RBC % Basophils # (Manual) PT INR APTT Heparin Anti-Xa Level ABG pH POC ABG pO2 ABG pO2 ABG HCO3 ABG O2 Saturation ABG Base Excess POC ABG pCO2 ABG Hemoglobin ABG Oxyhemoglobin ABG Glucose Oxyhemoglobin Sodium Potassium Chloride 95.3 L Carbon Dioxide 33 H BUN 36 H Creatinine Glucose 187 H POC Glucose 116 H Lactic Acid Calcium Phosphorus Magnesium AST ALT Lactate Dehydrogenase CK-MB (CK-2) C-Reactive Protein NT-Pro-B Natriuret Pep Total Protein Albumin Arterial Blood Glucose Urine WBC (Auto) Urine Creatinine 57.4 H 02/01/20 02/01/20 02/01/20 05:24 10:40 12:29 WBC RBC Hgb Hct MCHC RDW MCV MCH Lymph % (Auto) Gordon % (Auto) Gordon # Eos # Lymph # (Auto) Gordon # (Auto) Eos # (Auto) Seg Neutrophils % Seg Neuts % (Manual) Baso # (Auto) Lymphocytes % (Manual) Monocytes % (Manual) Eosinophils % (Manual) Basophils % (Manual) Seg Neutrophils # Seg Neutrophils # Man Lymphocytes # (Manual) Monocytes # (Manual) Eosinophils # (Manual) Nucleated RBC % Basophils # (Manual) PT INR APTT Heparin Anti-Xa Level ABG pH POC ABG pO2 ABG pO2 ABG HCO3 ABG O2 Saturation ABG Base Excess POC ABG pCO2 ABG Hemoglobin ABG Oxyhemoglobin ABG Glucose Oxyhemoglobin Sodium Potassium Chloride Carbon Dioxide BUN Creatinine Glucose POC Glucose 142 H 165 H 151 H Lactic Acid Calcium Phosphorus Magnesium AST ALT Lactate Dehydrogenase CK-MB (CK-2) C-Reactive Protein NT-Pro-B Natriuret Pep Total Protein Albumin Arterial Blood Glucose Urine WBC (Auto) Urine Creatinine 02/01/20 02/01/20 02/02/20 17:16 23:23 06:36 WBC RBC Hgb Hct MCHC RDW MCV MCH Lymph % (Auto) Gordon % (Auto) Gordon # Eos # Lymph # (Auto) Gordon # (Auto) Eos # (Auto) Seg Neutrophils % Seg Neuts % (Manual) Baso # (Auto) Lymphocytes % (Manual) Monocytes % (Manual) Eosinophils % (Manual) Basophils % (Manual) Seg Neutrophils # Seg Neutrophils # Man Lymphocytes # (Manual) Monocytes # (Manual) Eosinophils # (Manual) Nucleated RBC % Basophils # (Manual) PT INR APTT Heparin Anti-Xa Level ABG pH POC ABG pO2 ABG pO2 ABG HCO3 ABG O2 Saturation ABG Base Excess POC ABG pCO2 ABG Hemoglobin ABG Oxyhemoglobin ABG Glucose Oxyhemoglobin Sodium Potassium Chloride Carbon Dioxide BUN Creatinine Glucose POC Glucose 137 H 145 H 181 H Lactic Acid Calcium Phosphorus Magnesium AST ALT Lactate Dehydrogenase CK-MB (CK-2) C-Reactive Protein NT-Pro-B Natriuret Pep Total Protein Albumin Arterial Blood Glucose Urine WBC (Auto) Urine Creatinine 02/02/20 02/02/20 02/02/20 10:01 12:05 17:54 WBC RBC Hgb Hct MCHC RDW MCV MCH Lymph % (Auto) Gordon % (Auto) Gordon # Eos # Lymph # (Auto) Gordon # (Auto) Eos # (Auto) Seg Neutrophils % Seg Neuts % (Manual) Baso # (Auto) Lymphocytes % (Manual) Monocytes % (Manual) Eosinophils % (Manual) Basophils % (Manual) Seg Neutrophils # Seg Neutrophils # Man Lymphocytes # (Manual) Monocytes # (Manual) Eosinophils # (Manual) Nucleated RBC % Basophils # (Manual) PT INR APTT Heparin Anti-Xa Level ABG pH POC ABG pO2 ABG pO2 ABG HCO3 ABG O2 Saturation ABG Base Excess POC ABG pCO2 ABG Hemoglobin ABG Oxyhemoglobin ABG Glucose Oxyhemoglobin Sodium Potassium Chloride 95.3 L Carbon Dioxide BUN 44 H Creatinine Glucose 234 H POC Glucose 184 H 127 H Lactic Acid Calcium Phosphorus Magnesium AST 363 H ALT 457 H Lactate Dehydrogenase CK-MB (CK-2) C-Reactive Protein NT-Pro-B Natriuret Pep Total Protein Albumin 3.0 L Arterial Blood Glucose Urine WBC (Auto) Urine Creatinine 02/02/20 02/03/20 02/03/20 23:47 05:32 07:04 WBC 13.0 H RBC Hgb 9.5 L Hct 30.8 L MCHC 31 L RDW 19.6 H MCV 81 L MCH 25 L Lymph % (Auto) Gordon % (Auto) 9.4 H Gordon # Eos # Lymph # (Auto) Gordon # (Auto) 1.2 H Eos # (Auto) Seg Neutrophils % 72.3 H Seg Neuts % (Manual) Baso # (Auto) Lymphocytes % (Manual) Monocytes % (Manual) Eosinophils % (Manual) Basophils % (Manual) Seg Neutrophils # 9.4 H Seg Neutrophils # Man Lymphocytes # (Manual) Monocytes # (Manual) Eosinophils # (Manual) Nucleated RBC % Basophils # (Manual) PT INR APTT Heparin Anti-Xa Level ABG pH POC ABG pO2 ABG pO2 ABG HCO3 ABG O2 Saturation ABG Base Excess POC ABG pCO2 ABG Hemoglobin ABG Oxyhemoglobin ABG Glucose Oxyhemoglobin Sodium Potassium Chloride Carbon Dioxide BUN Creatinine Glucose POC Glucose 124 H 129 H Lactic Acid Calcium Phosphorus Magnesium AST ALT Lactate Dehydrogenase CK-MB (CK-2) C-Reactive Protein NT-Pro-B Natriuret Pep Total Protein Albumin Arterial Blood Glucose Urine WBC (Auto) Urine Creatinine 02/03/20 02/03/20 02/03/20 07:04 11:32 12:49 WBC RBC Hgb Hct MCHC RDW MCV MCH Lymph % (Auto) Gordon % (Auto) Gordon # Eos # Lymph # (Auto) Gordon # (Auto) Eos # (Auto) Seg Neutrophils % Seg Neuts % (Manual) Baso # (Auto) Lymphocytes % (Manual) Monocytes % (Manual) Eosinophils % (Manual) Basophils % (Manual) Seg Neutrophils # Seg Neutrophils # Man Lymphocytes # (Manual) Monocytes # (Manual) Eosinophils # (Manual) Nucleated RBC % Basophils # (Manual) PT INR APTT Heparin Anti-Xa Level ABG pH POC ABG pO2 ABG pO2 ABG HCO3 ABG O2 Saturation ABG Base Excess POC ABG pCO2 ABG Hemoglobin ABG Oxyhemoglobin ABG Glucose Oxyhemoglobin Sodium Potassium Chloride 97.9 L Carbon Dioxide 33 H BUN 39 H Creatinine Glucose 119 H POC Glucose 138 H Lactic Acid Calcium Phosphorus Magnesium 2.60 H AST ALT Lactate Dehydrogenase CK-MB (CK-2) C-Reactive Protein NT-Pro-B Natriuret Pep Total Protein Albumin Arterial Blood Glucose Urine WBC (Auto) Urine Creatinine 02/03/20 18:28 WBC RBC Hgb Hct MCHC RDW MCV MCH Lymph % (Auto) Gordon % (Auto) Gordon # Eos # Lymph # (Auto) Gordon # (Auto) Eos # (Auto) Seg Neutrophils % Seg Neuts % (Manual) Baso # (Auto) Lymphocytes % (Manual) Monocytes % (Manual) Eosinophils % (Manual) Basophils % (Manual) Seg Neutrophils # Seg Neutrophils # Man Lymphocytes # (Manual) Monocytes # (Manual) Eosinophils # (Manual) Nucleated RBC % Basophils # (Manual) PT INR APTT Heparin Anti-Xa Level ABG pH POC ABG pO2 ABG pO2 ABG HCO3 ABG O2 Saturation ABG Base Excess POC ABG pCO2 ABG Hemoglobin ABG Oxyhemoglobin ABG Glucose Oxyhemoglobin Sodium Potassium Chloride Carbon Dioxide BUN Creatinine Glucose POC Glucose 118 H Lactic Acid Calcium Phosphorus Magnesium AST ALT Lactate Dehydrogenase CK-MB (CK-2) C-Reactive Protein NT-Pro-B Natriuret Pep Total Protein Albumin Arterial Blood Glucose Urine WBC (Auto) Urine Creatinine Chest x-ray: pending Allied health notes reviewed: nursing
--- NOTE | 2020-02-04 12:56 | Gastroenterology Consultation ---
History of Present Illness - Reason for Consult Consult date: 02/04/20 N/V, abnormal LFT Requesting physician: AB CLARK - History of Present Illness The patient is a 64 yo male admitted over 2 months ago for hypoxic resp failure and sepsis. He has had a prolonged recovery, and has a trach and PEG. He is slowly weaning from the vent. He is awake and alert on trach, and is able to communicate somewhat with me. We are consulted for projectile N/V as well as abnormal LFTs. He has a hx of partial SBO that did not require surgery this admit, but had been tolerating his tube feeds well this admit until his recent episode. There has been no BM for a few days, but KUB yesterday showed no impaction nor bowel dilation. He had no blood in the emesis. There is no jaundice, and LFTs have been variable (normal to mild transaminitis) this admit. There has been no hepatitis testing done, but the patient is a former cocaine user. He has no jaundice or itching. Severe new meds, including amiodarone, have been started. Past History Past Medical History: arthritis, CAD, COPD, heart failure, hypertension, hype rlipidemia, stroke, other (Sepsis in 2015) Past Surgical History: PTCA, Other (Peptic Ulcer Surgery, 2 Knee surgeries, Trach/PEG) Social history: smoking (Occasional Smoker), other (Cocaine) Family history: no significant family history Medications and Allergies Allergies Allergy/AdvReac Type Severity Reaction Status Date / Time No Known Allergies Allergy Verified 06/23/19 08:58 Home Medications Medication Instructions Recorded Confirmed Last Taken Type lisinopriL [Zestril TAB] 10 mg PO QDAY #30 tablet 12/29/18 11/24/19 Unknown Rx Albuterol Mdi (or & Nicu Only) 2 puff IH Q4HR PRN #1 inhalation 06/25/19 11/24/19 Unknown Rx [ProAir HFA Inhaler] Aspirin [Aspirin BABY CHEW TAB] 81 mg PO QDAY #100 tab.chew 09/20/19 11/24/19 Unknown Rx AtorvaSTATin [Lipitor] 40 mg PO QHS #30 tablet 09/20/19 11/24/19 Unknown Rx Clopidogrel [Plavix] 75 mg PO QDAY #30 tablet 09/20/19 11/24/19 Unknown Rx Furosemide [Lasix TAB] 20 mg PO QDAY #30 tablet 09/20/19 11/24/19 Unknown Rx Pantoprazole [Protonix] 40 mg PO QDAY #10 tablet 09/24/19 11/24/19 Unknown Rx Spironolactone [Aldactone] 25 mg PO QDAY #30 tablet 09/24/19 11/24/19 Unknown Rx carBAMazepine [TEGretol] 100 mg PO BID #60 tablet 09/24/19 11/25/19 Unknown Rx carvediloL [Coreg] 3.125 mg PO BID #60 tablet 09/24/19 11/24/19 Unknown Rx dexAMETHasone [Dexamethasone] 6 mg PO DAILY #10 tablet 09/24/19 11/25/19 Unknown Rx guaiFENesin ER [Mucinex ER] 600 mg PO Q12H #14 tablet.er 09/24/19 11/25/19 Unknown Rx Active Meds: Active Medications Acetaminophen (Tylenol) 650 mg FEEDTUBE Q6H PRN PRN Reason: Pain, Mild (1-3) Last Admin: 02/03/20 12:54 Dose: 650 mg Documented by: Amiodarone HCl (Cordarone) 200 mg PO BID [facility] Last Admin: 02/04/20 09:43 Dose: 200 mg Documented by: Lipase/Protease/Amylase (Nadir Betancourt 10,500 Unit) 1 each FEEDTUBE PRN PRN PRN Reason: For Clogged Feeding Tube Apixaban (Eliquis) 5 mg PO Q12HR CAR; Protocol Last Admin: 02/04/20 09:43 Dose: 5 mg Documented by: Atorvastatin Calcium (Lipitor) 40 mg PO QHS [facility] Last Admin: 02/03/20 21:08 Dose: 40 mg Documented by: Bisacodyl (Dulcolax) 10 mg MA DAILY [facility] Last Admin: 02/04/20 09:43 Dose: 10 mg Documented by: Clopidogrel Bisulfate (Plavix) 75 mg PO QDAY [facility] Last Admin: 02/04/20 09:43 Dose: 75 mg Documented by: Dextrose (D50w (25gm) Syringe) 50 ml IV Q30MIN PRN; Protocol PRN Reason: Hypoglycemia Famotidine (Pepcid) 20 mg PO BID [facility] Last Admin: 02/04/20 09:43 Dose: 20 mg Documented by: Fentanyl (Sublimaze) 50 mcg IV Q10MIN PRN PRN Reason: ANALGESIA Glycopyrrolate (Glycopyrrolate) 2 mg PO TID [facility] Last Admin: 02/04/20 08:25 Dose: 2 mg Documented by: Haloperidol Lactate (Haldol) 5 mg IV Q6H PRN PRN Reason: Unrespon. to mult. doses BZD's Last Admin: 01/22/20 11:35 Dose: 5 mg Documented by: Hydrophilic Ointment (Vaseline Lip Therapy) 1 applic TP DIRECT PRN PRN Reason: Dry Lips Fentanyl Citrate (Fentanyl Drip Premix) 2,000 mcg in 100 mls @ 5.65 mls/hr IV TITR [facility]; Protocol Last Titration: 02/03/20 11:31 Dose: 0 mcg/kg/hr, 0 mls/hr Documented by: Insulin Human Regular (Humulin R) 0 unit SUB-Q Q6H [facility]; Protocol Last Admin: 02/04/20 12:26 Dose: Not Given Documented by: Lorazepam (Ativan) 2 mg IV Q6H PRN PRN Reason: AGITATION Last Admin: 01/31/20 14:22 Dose: 2 mg Documented by: Magnesium Hydroxide (Milk Of Magnesia) 30 ml PO QDAY PRN PRN Reason: Constip unreliev by MOM/or NPO Last Admin: 01/22/20 11:32 Dose: 30 ml Documented by: Metoclopramide HCl (Reglan) 5 mg IV Q6HR [facility] Last Admin: 02/04/20 12:42 Dose: 5 mg Documented by: Metoprolol Tartrate (Metoprolol) 5 mg IV Q6H PRN PRN Reason: SEE INSTRUCTIONS Last Admin: 02/03/20 07:16 Dose: 5 mg Documented by: Metoprolol Tartrate (Metoprolol) 25 mg PO Q6H [facility] Last Admin: 02/04/20 12:42 Dose: Not Given Documented by: Midodrine (Proamatine) 10 mg PO TID@0800,1200,1600 [facility] Last Admin: 02/04/20 12:41 Dose: 10 mg Documented by: Morphine Sulfate (Morphine) 2 mg IV Q4H PRN PRN Reason: Pain, Moderate (4-6) Last Admin: 02/03/20 17:27 Dose: 2 mg Documented by: Multi-Ingred Cream/Lotion/Oil/Oint (Artificial Tears Ophth Oint) 1 applic OU Q4HR PRN PRN Reason: Dry Eye(s) Nitroglycerin (Nitrostat) 0.4 mg SL .Q5MIN PRN PRN Reason: Chest Pain Last Admin: 01/20/20 03:03 Dose: 0.4 mg Documented by: Ondansetron HCl (Zofran) 4 mg IV Q8H PRN PRN Reason: Nausea And Vomiting Last Admin: 02/02/20 10:52 Dose: 4 mg Documented by: Polyethylene Glycol (Miralax 3350) 17 gm PO QHS [facility] Last Admin: 02/03/20 21:08 Dose: 17 gm Documented by: Quetiapine Fumarate (Seroquel) 300 mg PO BID [facility] Last Admin: 02/04/20 09:43 Dose: 300 mg Documented by: Scopolamine (Transderm-Scop) 1 each TD Q72HR [facility] Last Admin: 01/07/20 21:08 Dose: 1 each Documented by: Simple Syrup (Simple Syrup) 15 ml FEEDTUBE PRN PRN PRN Reason: Hypoglycemia Simple Syrup (Simple Syrup) 30 ml FEEDTUBE PRN PRN PRN Reason: Hypoglycemia Sodium Bicarbonate (Sodium Bicarbonate) 325 mg FEEDTUBE PRN PRN PRN Reason: For Clogged Feeding Tube Sodium Chloride (Sodium Chloride Flush Syringe 10 Ml) 10 ml IV BID [facility] Last Admin: 02/04/20 09:42 Dose: 10 ml Documented by: Tamsulosin HCl (Flomax) 0.8 mg PO QHS [facility] Last Admin: 02/03/20 21:08 Dose: 0.8 mg Documented by: REVIEWED AND RECONCILED Review of Systems - Review of Systems All systems: negative (as per the HPI) Exam - Constitutional Vital Signs: Temp Pulse Resp BP Pulse Ox 98.5 F 133 H 16 87/63 100 02/04/20 12:00 02/04/20 12:42 02/04/20 12:28 02/04/20 12:42 02/04/20 12:28 General appearance: no acute distress - EENT Eyes: PERRL, EOM intact ENT: hearing intact, clear oral mucosa, other (Trach) - Neck Neck: supple, normal ROM - Respiratory Respiratory effort: normal Respiratory: bilateral: CTA - Cardiovascular Rhythm: regular Heart Sounds: Present: S1 & S2 Extremities: no ischemia, No edema - Gastrointestinal General gastrointestinal: Present: soft, non-tender, non-distended, other (PEG in LUQ clean/dry and bumper at 6cm/not tight) - Integumentary Integumentary: Present: clear, warm, dry - Neurologic Neurological: oriented to person, other (Follows commands and nods yes/no to questions) - Labs CBC & Chem 7: 02/03/20 07:04 02/03/20 07:04 Lab Results: Laboratory Results - last 24 hr 02/03/20 02/03/20 02/03/20 12:49 12:49 12:49 POC Glucose Lactic Acid 1.60 Magnesium 2.60 H Ammonia 35.0 Procalcitonin 02/03/20 02/03/20 02/04/20 12:49 18:28 00:12 POC Glucose 118 H 86 Lactic Acid Magnesium Ammonia Procalcitonin 0.44 02/04/20 05:38 POC Glucose 84 Lactic Acid Magnesium Ammonia Procalcitonin Assessment and Plan - Patient Problems (1) Nausea & vomiting Current Visit: Yes Status: Acute Plan to address problem: - Given hx of partial SBO this admit, will repeat CT with PO contrast. - Continue to hold tube feeds for now, but since no distention or pain, may use for meds. (2) Abnormal liver enzymes Current Visit: Yes Status: Acute Plan to address problem: - Will recheck tomorrow, and also hepatitis panel. - Consider d/c amiodarone, though this usually causes bilirubin elevation. - Will evaluate liver during his CT.
[2020-02-04] MEDS ORDERED: SODIUM CHLORIDE 0.9% 500 ML 500 ML IV ONE (13:45)
--- NOTE | 2020-02-04 16:03 | Progress Note ---
Assessment and Plan Assessment and plan: Patient is a 64-year-old male with known history of hypertension, COPD, history of coronary artery disease, CHF with ejection fraction of 20 to 25% in August 2018 presenting to the emergency room via EMS complaining of shortness of breath. Patient was found to be hypoxic and in respiratory distress. Patient was placed on CPAP in route to the hospital. Patient remained hypoxic on CPAP BiPAP ,subsequently was intubated. Work-up in the emergency room including chest x-ray reveals bilateral pneumonia. He had an elevated white count of 14 and also had an elevated BNP. sputum cultures positive for Pseudomonas, ID treated with cefepime and Vanco. His hospital course became complicated with acute PE, DVT, paroxysmal atrial fib - placed on chronic anticoagulation. Patient was difficult to wean off, status post trach and PEG, remains on mechanical ventilation with trach tube. He then developed partial small bowel obstruction valuated by general surgeon symptom improved with medical Mx, patient was briefly weaned off ventilatory support however, was in respiratory failure requiring full ventilatory support. Cardiac catheterization on 01/22/2020. No new issues overnight. -Ischemic cardiomyopathy Cardiology is following, status post cardiac catheterization on 01/22/2020; Coronary artery disease status post PCI and stent to the LAD Continue current cardiac medications --Acute on chronic hypoxemic respiratory failure; Patient has tracheostomy on vent Continue nebulizers, , trach care Wean off ventilator as tolerated Pulmonary critical following --Acute exacerbation of COPD; Patient is currently on ventilatory support Continue nebulizers --Left lower lobe PE; Continue Eliquis, ventilatory support --Acute right lower extremity DVT; Patient is on Eliquis --Bilateral multifocal pneumonia/community-acquired Completed antibiotics, improved --Severe sepsis/bilateral pneumonia: Completed antibiotics COVID-19 test; 11/24/2019; negative 11/26/2019; negative 12/29/2019: Negative --atrial fibrillation WITH RVR Now rate controlled, Stable on amiodarone and Eliquis --Acute on chronic combined systolic and diastolic congestive heart failure Ischemic cardiomyopathy left ventricular ejection fraction 40 to 45% --H/o CAD [[facility] 12/2018 in-stent restenosis] --Hypertensive emergency; present on admission Reasonable blood pressures, continue current antihypertensives As needed medications Most stents were patent. --History of alcohol abuse/alcohol withdrawal; Was on CIWA protocol, now stable --Oropharyngeal dysphagia; status post PEG placement Continue PEG feeds per protocol --History of partial small bowel obstruction; resolved Surgery evaluated. At present not a surgical candidate. --Obesity; BMI 34.7 Patient needs weight reduction when medically stable --Severe protein calorie malnutrition/hypoalbuminemia Nutrition supplements, dietitian following, PEG feeds --DVT prophylaxis;Eliquis --Full CODE STATUS 01/05; Pt stable. NGT output 650cc over 24 hours, bilious. No f/c, WBC within normal limits. cont NG suction and cont to hold TF 01/06: Abs series - mild improvement in small bowel distension in mid abdomen, normal gas/stool pattern in colon. NGT in duodenum. Continue to hold tube feeding, maintain NG tube with low intermittent suction. Patient's was updated by phone. Continue to provide supportive care and monitor clinically. 01/07: +BMs today and NGT/PEG output appears more gastric today. Plan to clamp NGT, if tolerates start TF from tomorrow. cont supportive care. 01/08; Gastric output decreased over last 24 hours. NGT has been clamped x 24 hours. plan to dc NGT and to start TTF via PEG - vital HF @10cc/hr 01/09: clinically stable, tolerating TF. monitor BMP, wean off from vent as tolerated clinically stable, on TF. wean off vent as tolerated 01/11: wean off from vent, cont to monitor, on TF 01/12: wean off from vent, cont to monitor, on TF. need placement - unfunded 01/13; remains on ventilatory support, unable to wean, DC planning possible LTAC, unfunded 01/14; patient of ventilatory support, T-piece tracheostomy on oxygen, LTAC placement per case management 01/16; tracheostomy, patient on full ventilatory support, wean off vent support as tolerated, pending LTAC placement, social financial issues 01/17; awaiting LTAC placement, insurance and financial issues 01/18; patient tracheostomy remains on ventilatory support 01/19; wean off ventilator as tolerated 01/20; remains on ventilatory support, patient complains of intermittent chest pain, cardiology recommend left heart catheterization tomorrow 01/22/2020. Patient for left heart catheterization per cardiology. Patient remains on AC mode ventilation rate 12, tidal volume 450, FiO2 30% and PEEP of 6. Continue tracheostomy care, airway management and secretion control. 01/23/2020. Cardiac catheterization completed yesterday revealed widely patent previous LAD stent with mild nonobstructive atherosclerosis of the right mid coronary artery and rest of the coronary system was without significant atherosclerosis. The left ventricle ejection fraction was mildly impaired at 40 to 45%. There was some hypokinesis of the basal inferior wall suggestive of previous or recent infarct. Continue GDMT for coronary artery disease including beta blockers, topical nitrates, statin and Plavix. Continue Eliquis for paroxysmal atrial fibrillation and PE. Continue diuresis with Lasix and follow electrolytes closely. Continue Robinul and scopolamine for secretion control and daily SBT per pulmonary. Also, continue bronchodilators and routine trach care/airway management. T-piece trials per pulmonary as tolerated. 01/24/2020. Recent cardiac catheterization has documented widely patent left anterior descending artery stent with minimal nonobstructive diffuse coronary artery disease in the rest of the coronary arteries. Evidence of ischemic cardiomyopathy with inferior wall hypokinesis. Continue with guideline directed medical therapy. Continue Robinul and scopolamine for secretion control and daily SBT per pulmonary. Continue bronchodilators and routine trach care/airway management. T-piece trials per pulmonary as tolerated. 01/25/2020. Continue with guideline directed medical therapy for systolic heart failure. Cardiac catheterization revealed evidence of ischemic cardiomyopathy with inferior wall hypokinesis (EF 40-45%). Patient currently on T-piece with oxygen 10 L/min FiO2 40%. Continue Robinul and scopolamine for secretion contr ol. Continue bronchodilators and routine trach care/airway management. 01/26/2020;Continue with guideline directed medical therapy for systolic heart failure. Cardiac catheterization revealed evidence of ischemic cardiomyopathy with inferior wall hypokinesis (EF 40-45%). Patient currently on T-piece with oxygen 10 L/min FiO2 40%. Continue Robinul and scopolamine for secretion control. Continue bronchodilators and routine trach care/airway management. 01/27/2020Continue with guideline directed medical therapy for systolic heart failure. Cardiac catheterization revealed evidence of ischemic cardiomyopathy with inferior wall hypokinesis (EF 40-45%). Patient currently on T-piece with oxygen 10 L/min FiO2 40%. Continue Robinul and scopolamine for secretion control. Continue bronchodilators and routine trach care/airway management. 01/28/2020Continue with guideline directed medical therapy for systolic heart failure. Cardiac catheterization revealed evidence of ischemic cardiomyopathy with inferior wall hypokinesis (EF 40-45%). Patient currently on T-piece with oxygen 10 L/min FiO2 40%. Continue Robinul and scopolamine for secretion control. Continue bronchodilators and routine trach care/airway management. 01/29/2020 Continue with guideline directed medical therapy for systolic heart failure. Cardiac catheterization revealed evidence of ischemic cardiomyopathy with inferior wall hypokinesis (EF 40-45%). Patient currently on T-piece with oxygen 10 L/min FiO2 40%. Continue Robinul and scopolamine for secretion control. Continue bronchodilators and routine trach care/airway management. 01/30/2020 Continue with guideline directed medical therapy for systolic heart failure. Cardiac catheterization revealed evidence of ischemic cardiomyopathy with inferior wall hypokinesis (EF 40-45%). Patient currently on T-piece with oxygen 10 L/min FiO2 40%. Continue Robinul and scopolamine for secretion control. Continue bronchodilators and routine trach care/airway management. Patient has recurrent A. fib and currently on amiodarone, continue beta-hebert, and Eliquis. Patient is on IV diuresis January 31, 2020. Patient resting comfortably. Catheterization with inferior wall hypokinesis ejection fraction 40 to 45%. Was unable to wean tracheostomy at this time. Failed T-piece trial initially. Secretions improved with addition of Robinul. Pulmonology for trach care and airway management and continue to wean. Atrial fibrillation rate well controlled at 81. Currently on amiodarone beta- hebert and anticoagulation with Eliquis. CHF continue present diuresis. February 01, 2020. Patient resting comfortably. No new concerns at this time patient is anticipating discharge. Still failed T-piece trial at this time again. Patient secretions have improved with Robinul all. Atrial fibrillation heart rate 70s to 80s. Well-controlled current anticoa gulation Congestive heart failure compensated at this particular time. February 02, 2020 Patient with episode of projectile vomiting. Most likely source partial bowel obstruction versus tube feeds. Will obtain chest x-ray to rule out aspiration. We will also hold tube feeds for 12 hours and obtain KUB. Area tracheostomy needs to be cleaned out as well. Patient obviously has failed T-piece trial again this time. Resume weaning parameters in a.m. Unlikely the secretions that have been fairly well controlled. Atrial fibrillation rate have remained well controlled. Continue amiodarone and beta-hebert. Metoprolol. Congestive heart failure ejection fraction 40 to 45% patient had inferior wall hypokinesis on catheterization otherwise stable. Continue present diuresis Acute respiratory failure unable to wean tracheostomy at this time. Failed T- piece trial again. Despite improve secretions. Continue bronchodilators and weaning parameters. Projectile vomiting. Rule out small bowel obstruction rule out ileus. Will hold tube feeds obtain imaging to rule out aspiration and bowel obstruction as well. Continue antibiotics. 02/02: Discussed with Nursing staff, patient with some mild change in mental status, not following commands like prior,WILL OBTAIN HEAD CT remains intubated on full mechanical ventilatory support. Today is my first day seeing the patient, have reviewed all records so far. Patients still with elevated heart rate of Afib with RVR continue amiodarone and metoprolol. LVEF 40 to 45%. Continue Eliquis FOR THE Acute PE/DVT. Partial SBO vs ileus- KUB is negative. Will monitor, No further vomiting noted. If no improvement will repeat a chest xray to ensure no aspiration in the last 24 hrs. Will initiate sepsis work up, Obtain cultures, cxr- no change, only showing stable bilateral pulmonary opacities, lactate checked and wnl. Mild elevation in WBC. will recheck in am. IF Continued fever, will reconsult ID. 02/03: Mental status more improved, agree with Reglan will change to IV scheduled for two days, no new vomiting. Pseudomonas A in Sputum. The high probability of a clinically significant, sudden or life threatening deterioration of the [Pulmonary, GI, cardiac] system(s) required my full and direct attention, intervention and personal management. The aggregate critical care time was [35] minutes. This time is in addition to time spent performing reported procedures but includes the following: [x] Data Review and interpretation [x] Patient assessment and monitoring of vital signs [x] Documentation [x] Medication orders and management History Interval history: Patient seen and examined, more awake today, following commands Hospitalist Physical - Physical exam Narrative exam: General appearance: Present: well-nourished, AWAKE, oriented - EENT Eyes: Present: PERRL, EOM intact. Absent: scleral icterus ENT: clear oral mucosa, dentition normal, NGT - Neck Neck: Present: supple, normal ROM, Trach - Respiratory Respiratory effort: normal, mechanical ventilation Respiratory: bilateral: rales - Cardiovascular Rhythm: regular Heart Sounds: Present: S1 & S2. Absent: gallop, systolic murmur, diastolic murmur, rub - Extremities Extremities: no ischemia, pulses intact, pulses symmetrical, No edema, Full ROM Peripheral Pulses: within normal limits - Abdominal General gastrointestinal: Present: PEG TUBE SIte intact, soft, non-tender, non- distended, normal bowel sounds. Absent: mass - Integumentary Integumentary: Present: clear, warm, dry. Absent: rash - Musculoskeletal Musculoskeletal: strength equal bilaterally - Psychiatric Psychiatric: cooperative - Constitutional Vitals: Temp Pulse Resp BP Pulse Ox 98.5 F 120 H 14 84/69 100 02/04/20 12:00 02/04/20 15:00 02/04/20 15:00 02/04/20 15:00 02/04/20 15:00 General appearance: Present: mild distress, other (Diaphoretic) HEART Score - HEART Score Troponin: Troponin T < 0.010 ng/mL (0.00-0.029) 01/19/20 01:35 Results - Labs CBC & Chem 7: 02/03/20 07:04 02/03/20 07:04 Labs: Laboratory Last Values WBC 13.0 K/mm3 (4.5-11.0) H 02/03/20 07:04 RBC 3.80 M/mm3 (3.65-5.03) 02/03/20 07:04 Hgb 9.5 gm/dl (11.8-15.2) L 02/03/20 07:04 Hct 30.8 % (35.5-45.6) L 02/03/20 07:04 MCV 81 fl (84-94) L 02/03/20 07:04 MCH 25 pg (28-32) L 02/03/20 07:04 MCHC 31 % (32-34) L 02/03/20 07:04 RDW 19.6 % (13.2-15.2) H 02/03/20 07:04 Plt Count 275 K/mm3 (140-440) 02/03/20 07:04 Lymph % (Auto) 17.5 % (13.4-35.0) 02/03/20 07:04 [place] % (Auto) 9.4 % (0.0-7.3) H 02/03/20 07:04 Eos % (Auto) 0.2 % (0.0-4.3) 02/03/20 07:04 Baso % (Auto) 0.6 % (0.0-1.8) 02/03/20 07:04 Lymph # (Auto) 2.3 K/mm3 (1.2-5.4) 02/03/20 07:04 [place] # (Auto) 1.2 K/mm3 (0.0-0.8) H 02/03/20 07:04 Eos # (Auto) 0.0 K/mm3 (0.0-0.4) 02/03/20 07:04 Baso # (Auto) 0.1 K/mm3 (0.0-0.1) 02/03/20 07:04 Add Manual Diff Complete 12/19/19 11:32 Total Counted 100 12/19/19 11:32 Seg Neutrophils % 72.3 % (40.0-70.0) H 02/03/20 07:04 Seg Neuts % (Manual) 82.0 % (40.0-70.0) H 12/19/19 11:32 Band Neutrophils % 0 % 12/19/19 11:32 Lymphocytes % (Manual) 10.0 % (13.4-35.0) L 12/19/19 11:32 Reactive Lymphs % (Man) 0 % 12/19/19 11:32 Monocytes % (Manual) 6.0 % (0.0-7.3) 12/19/19 11:32 Eosinophils % (Manual) 2.0 % (0.0-4.3) 12/19/19 11:32 Basophils % (Manual) 0 % (0.0-1.8) 12/19/19 11:32 Metamyelocytes % 0 % 12/19/19 11:32 Myelocytes % 0 % 12/19/19 11:32 Promyelocytes % 0 % 12/19/19 11:32 Blast Cells % 0 % 12/19/19 11:32 Nucleated RBC % 1.0 % (0.0-0.9) H 12/19/19 11:32 Seg Neutrophils # 9.4 K/mm3 (1.8-7.7) H 02/03/20 07:04 Seg Neutrophils # Man 12.0 K/mm3 (1.8-7.7) H 12/19/19 11:32 Band Neutrophils # 0.0 K/mm3 12/19/19 11:32 Lymphocytes # (Manual) 1.5 K/mm3 (1.2-5.4) 12/19/19 11:32 Abs React Lymphs (Man) 0.0 K/mm3 12/19/19 11:32 Monocytes # (Manual) 0.9 K/mm3 (0.0-0.8) H 12/19/19 11:32 Eosinophils # (Manual) 0.3 K/mm3 (0.0-0.4) 12/19/19 11:32 Basophils # (Manual) 0.0 K/mm3 (0.0-0.1) 12/19/19 11:32 Metamyelocytes # 0.0 K/mm3 12/19/19 11:32 Myelocytes # 0.0 K/mm3 12/19/19 11:32 Promyelocytes # 0.0 K/mm3 12/19/19 11:32 Blast Cells # 0.0 K/mm3 12/19/19 11:32 WBC Morphology Not Reportable 12/19/19 11:32 Hypersegmented Neuts Not Reportable 12/19/19 11:32 Hyposegmented Neuts Not Reportable 12/19/19 11:32 Hypogranular Neuts Not Reportable 12/19/19 11:32 Smudge Cells Not Reportable 12/19/19 11:32 Toxic Granulation Not Reportable 12/19/19 11:32 Toxic Vacuolation Not Reportable 12/19/19 11:32 Dohle Bodies Not Reportable 12/19/19 11:32 Pelger-Huet Anomaly Not Reportable 12/19/19 11:32 Hector Rods Not Reportable 12/19/19 11:32 Platelet Estimate Consistent w auto 12/19/19 11:32 Clumped Platelets Not Reportable 12/19/19 11:32 Plt Clumps, EDTA Not Reportable 12/19/19 11:32 Large Platelets Not Reportable 12/19/19 11:32 Giant Platelets Not Reportable 12/19/19 11:32 Platelet Satelliting Not Reportable 12/19/19 11:32 Plt Morphology Comment Not Reportable 12/19/19 11:32 RBC Morphology Not Reportable 12/19/19 11:32 Dimorphic RBCs Not Reportable 12/19/19 11:32 Polychromasia Not Reportable 12/19/19 11:32 Hypochromasia Few 12/19/19 11:32 Poikilocytosis Not Reportable 12/19/19 11:32 Anisocytosis 1+ 12/19/19 11:32 Microcytosis Few 12/19/19 11:32 Macrocytosis Few 12/19/19 11:32 Spherocytes Not Reportable 12/19/19 11:32 Pappenheimer Bodies Not Reportable 12/19/19 11:32 Sickle Cells Not Reportable 12/19/19 11:32 Target Cells Not Reportable 12/19/19 11:32 Tear Drop Cells Not Reportable 12/19/19 11:32 Ovalocytes Not Reportable 12/19/19 11:32 Helmet Cells Not Reportable 12/19/19 11:32 [place] Bodies Not Reportable 12/19/19 11:32 [place] Rings Not Reportable 12/19/19 11:32 Oc Cells Not Reportable 12/19/19 11:32 Bite Cells Not Reportable 12/19/19 11:32 Crenated Cell Not Reportable 12/19/19 11:32 Elliptocytes Not Reportable 12/19/19 11:32 Acanthocytes (Spur) Not Reportable 12/19/19 11:32 Rouleaux Not Reportable 12/19/19 11:32 Hemoglobin C Crystals Not Reportable 12/19/19 11:32 Schistocytes Not Reportable 12/19/19 11:32 Malaria parasites Not Reportable 12/19/19 11:32 [place] Bodies Not Reportable 12/19/19 11:32 Hem Pathologist Commnt No 12/19/19 11:32 PT 16.9 Sec. (12.2-14.9) H 01/22/20 09:58 INR 1.34 (0.87-1.13) H 01/22/20 09:58 APTT 31.5 Sec. (24.2-36.6) 01/22/20 09:58 Heparin Anti-Xa Level 1.34 U.I./ml (0.3-0.7) H 01/22/20 04:45 ABG pH 7.447 pH Units (7.350-7.450) 01/25/20 21:02 POC ABG pCO2 45.6 mmHg (32.0-48.0) 01/12/20 13:58 ABG pCO2 47.0 mm Hg 01/25/20 21:02 POC ABG pO2 76.6 mmHg (83-108) L 01/12/20 13:58 ABG pO2 57.5 mm Hg (80.0-90.0) L 01/25/20 21:02 POC ABG HCO3 31.2 01/12/20 13:58 ABG HCO3 31.7 mmol/L (20.0-26.0) H 01/25/20 21:02 ABG O2 Saturation 90.3 % (95.0-99.0) L 01/25/20 21:02 ABG O2 Content 16.0 (0.0-44) 01/25/20 21:02 POC ABG Base Excess 6.5 01/12/20 13:58 ABG Base Excess 6.6 mmol/L (-2.0-3.0) H 01/25/20 21:02 ABG Hemoglobin 13.0 gm/dl (14.0-18.0) L 01/25/20 21:02 ABG Oxyhemoglobin 84 (94-98) L 12/22/19 03:22 ABG Carboxyhemoglobin 2.5 % (0.0-5.0) 01/25/20 21:02 ABG Methemoglobin 0.6 % (0.0-1.5) 01/25/20 21:02 ABG Sodium 136.8 mmol/L (136.0-145.0) 01/12/20 13:58 ABG Potassium 3.7 mmol/L (3.40-4.50) 01/12/20 13:58 ABG Chloride 103.0 mmol/L (98-107) 01/12/20 13:58 ABG Glucose 99 mg/dL (65-95) H 01/12/20 13:58 Oxyhemoglobin 87.5 % (95.0-99.0) L 01/25/20 21:02 Carboxyhemoglobin 0.7 (0.5-1.5) 12/22/19 03:22 FiO2 40 % 01/25/20 21:02 Sodium 140 mmol/L (137-145) 02/03/20 07:04 Potassium 4.1 mmol/L (3.6-5.0) 02/03/20 07:04 Chloride 97.9 mmol/L (98-107) L 02/03/20 07:04 Carbon Dioxide 33 mmol/L (22-30) H 02/03/20 07:04 Anion Gap 13 mmol/L 02/03/20 07:04 BUN 39 mg/dL (9-20) H 02/03/20 07:04 Creatinine 1.2 mg/dL (0.8-1.3) 02/03/20 07:04 Estimated GFR > 60 ml/min 02/03/20 07:04 BUN/Creatinine Ratio 33 % 02/03/20 07:04 Glucose 119 mg/dL (75-100) H 02/03/20 07:04 POC Glucose 84 mg/dL (70-105) 02/04/20 05:38 Lactic Acid 1.60 mmol/L (0.7-2.0) 02/03/20 12:49 Calcium 9.2 mg/dL (8.4-10.2) 02/03/20 07:04 Ferritin 84.4 ng/mL (30.0-300.0) 11/24/19 04:53 Direct Bilirubin < 0.2 mg/dL (0-0.2) 12/08/19 03:55 Indirect Bilirubin 0.2 mg/dL 12/08/19 03:55 Phosphorus 4.10 mg/dL (2.5-4.5) 01/31/20 19:24 Magnesium 2.60 mg/dL (1.7-2.3) H 02/03/20 12:49 Total Bilirubin 0.90 mg/dL (0.1-1.2) 02/02/20 10:01 Total Creatine Kinase 141 units/L (55-170) 11/24/19 02:53 CK-MB (CK-2) 4.3 ng/mL (0.0-4.0) H 11/24/19 02:53 AST 363 units/L (5-40) H 02/02/20 10:01 ALT 457 units/L (7-56) H 02/02/20 10:01 CK-MB (CK-2) Rel Index 3.0 (0-4) 11/24/19 02:53 Alkaline Phosphatase 105 units/L (35-129) 02/02/20 10:01 C-Reactive Protein 8.50 mg/dL (0.00-1.30) H 12/01/19 12:16 Ammonia 35.0 umol/L (25-60) 02/03/20 12:49 Lactate Dehydrogenase 228 units/L (91-180) H 12/19/19 04:45 Troponin T < 0.010 ng/mL (0.00-0.029) 01/19/20 01:35 NT-Pro-B Natriuret Pep 3866 pg/mL (0-900) H 01/01/20 10:40 Total Protein 6.8 g/dL (6.3-8.2) 02/02/20 10:01 Albumin 3.0 g/dL (3.9-5) L 02/02/20 10:01 Albumin/Globulin Ratio 0.8 % 02/02/20 10:01 Procalcitonin 0.44 ng/mL (<0.15) 02/03/20 12:49 Arterial Blood Glucose 99 mg/dL (65-95) H 01/12/20 13:58 Arterial Blood Ionized Calcium 4.8 mg/dL (4.6-5.3) 01/12/20 13:58 Urine Color [place] (Yellow) 12/31/19 18:04 Urine Turbidity Clear (Clear) 12/31/19 18:04 Urine pH 5.0 (5.0-7.0) 12/31/19 18:04 Ur Specific [place] 1.023 (1.003-1.030) 12/31/19 18:04 Urine Protein <15 mg/dl mg/dL (Negative) 12/31/19 18:04 Urine Glucose (UA) Neg mg/dL (Negative) 12/31/19 18:04 Urine Ketones Neg mg/dL (Negative) 12/31/19 18:04 Urine Blood Neg (Negative) 12/31/19 18:04 Urine Bacteria (Auto) 1+ /HPF (Negative) 12/03/19 06:03 Urine Nitrite Neg (Negative) 12/31/19 18:04 Urine Bilirubin Neg (Negative) 12/31/19 18:04 Urine Urobilinogen 4.0 mg/dL (<2.0) 12/31/19 18:04 Ur Leukocyte Esterase Neg (Negative) 12/31/19 18:04 Urine WBC (Auto) 2.0 /HPF (0.0-6.0) 12/31/19 18:04 Urine RBC (Auto) 3.0 /HPF (0.0-6.0) 12/31/19 18:04 U Epithel Cells (Auto) 2.0 /HPF (0-13.0) 12/31/19 18:04 Urine Mucus 1+ /HPF 12/31/19 18:04 Urine Creatinine 57.4 mg/dL (0.1-20.0) H 01/31/20 Unknown Urine Sodium 59 mmol/L 01/31/20 Unknown Vancomycin Trough 14.2 ug/mL (5.0-20.0) 12/13/19 15:01 Coronavirus (PCR) Negative (Negative) 12/29/19 10:07 Blood Type O POSITIVE 01/21/20 13:00 Antibody Screen Negative 01/21/20 13:00 Microbiology: Microbiology 02/03/20 15:52 Peripheral/Venous Blood Culture - Preliminary Culture in Progress 02/03/20 15:52 Peripheral/Venous Blood Culture - Preliminary Culture in Progress - Diagnostic Impressions Diagnostic Impressions: Echocardiogram 11/29/19 07:37 Transthoracic Echocardiogram Indication: CHF BP: 116/72 HR: 33 Conclusions *The study is technically limited due to poor acoustic windows. *Global left ventricular systolic function is normal. *The estimated ejection fraction is 50-55%. *Mild concentric left ventricular hypertrophy is observed. *There is trace of mitral regurgitation. *There is mild tricuspid regurgitation. Findings Procedure Info: The study quality is poor. The study is technically limited due to poor acoustic windows. The study is technically limited due to patient body habitus. Left Ventricle: The left ventricular chamber size is normal. Mild concentric left ventricular hypertrophy is observed. Global left ventricular systolic function is normal. The estimated ejection fraction is 50-55%. Left Atrium: The left atrial chamber size is normal. Right Ventricle: The right ventricular cavity size is normal. Right Atrium: The right atrial cavity size is normal. Aortic Valve: The aortic valve leaflets are moderately thickened. There is trace of aortic regurgitation. There is no evidence of aortic stenosis. Mitral Valve: The mitral valve leaflets are mildly thickened. There is trace of mitral regurgitation. There is no evidence of mitral stenosis. Tricuspid Valve: There is mild tricuspid regurgitation. No pulmonary hypertension is noted. Pulmonic Valve: There is trace pulmonic regurgitation. Pericardium: There is no pericardial effusion. Aorta: There is no dilatation of the aortic root. Venous: The inferior vena cava appears normal in size. Contrast: Definity was used to optimize study. Intravenous contrast was used to enhance endocardial border definition. Measurements Chambers 2D Name Value Normal Range Ao root diameter (2D) 3.4 cm (2 - 3.7) Aortic Valve Name Value Normal Range AV Vmax 0.98 m/sec - AV VTI 16.76 cm - AV peak gradient 3.83 mmHg - AV mean gradient 2.57 mmHg - LVOT diameter 3.11 cm - LVOT Vmax 0.68 m/sec - LVOT VTI 11.52 cm - LVOT peak gradient 1.84 mmHg - LVOT mean gradient 1.27 mmHg - SV LVOT 87.31 ml - MALOU (continuity Vmax) 5.24 cm2 - MALOU (continuity VTI) 5.21 cm2 - Tricuspid Valve Name Value Normal Range IVC diameter 2.24 cm (1.2 - 2.3) Hoffman/IV: Voiding Method Condom Catheter IV Catheter Type [Right INT / Saline [employer] Forearm] IV Catheter Type [Right Hand] Peripheral IV IV Catheter Type [Right Upper INT / Saline Lock arm] IV Catheter Type [Left Upper Mid-line arm] IV Catheter Type [Left Forearm INT / Saline Lock ] IV Catheter Type [Left Hand] Peripheral IV IV Catheter Type [Left Wrist] INT / Saline Lock IV Catheter Type [Right Peripheral IV Antecubital] Active Medications - Current Medications Current Medications: Generic Name Dose Route Start Last Admin Trade Name Tisha PRN Reason Stop Dose Admin Acetaminophen 650 mg 12/31/19 11:43 02/03/20 12:54 Tylenol FEEDTUBE 650 mg Q6H PRN Administration Pain, Mild (1-3) Amiodarone HCl 200 mg 01/29/20 22:00 02/04/20 09:43 Cordarone PO 200 mg BID CAR Administration Lipase/Protease/Amylase 1 each 01/09/20 12:01 Pancrepetr Betancourt 10,500 Unit FEEDTUBE PRN PRN For Clogged Feeding Tube Apixaban 5 mg 01/22/20 22:00 02/04/20 09:43 Eliquis PO 5 mg Q12HR CAR Administration Protocol Atorvastatin Calcium 40 mg 01/20/20 22:00 02/03/20 21:08 Lipitor PO 40 mg QHS CAR Administration Bisacodyl 10 mg 01/06/20 13:00 02/04/20 09:43 Dulcolax IA 10 mg DAILY CAR Administration Clopidogrel Bisulfate 75 mg 01/21/20 06:00 02/04/20 09:43 Plavix PO 75 mg QDAY CAR Administration Dextrose 50 ml 01/31/20 18:51 D50w (25gm) Syringe IV Q30MIN PRN Hypoglycemia Protocol Famotidine 20 mg 01/12/20 10:00 02/04/20 09:43 Pepcid PO 20 mg BID CAR Administration Fentanyl 50 mcg 02/01/20 15:52 Sublimaze IV Q10MIN PRN ANALGESIA Glycopyrrolate 2 mg 01/26/20 20:00 02/04/20 13:49 Glycopyrrolate PO 2 mg TID CAR Administration Haloperidol Lactate 5 mg 12/25/19 10:00 01/22/20 11:35 Haldol IV 5 mg Q6H PRN Administration Unrespon. to mult. doses BZD's Hydrophilic Ointment 1 applic 01/17/20 15:26 Vaseline Lip Therapy TP DIRECT PRN Dry Lips Fentanyl Citrate 2,000 mcg in 100 mls @ 5.65 mls/hr 02/01/20 16:00 02/03/20 11:31 Fentanyl Drip Premix IV 0 mcg/kg/hr TITR CAR 0 mls/hr Titration Protocol 1 MCG/KG/HR Insulin Human Regular 0 unit 02/01/20 18:00 02/04/20 12:26 Humulin R SUB-Q Not Given Q6H [facility] Protocol Lorazepam 2 mg 12/25/19 10:00 01/31/20 14:22 Ativan IV 2 mg Q6H PRN Administration AGITATION Magnesium Hydroxide 30 ml 01/14/20 13:35 01/22/20 11:32 Milk Of Magnesia PO 30 ml QDAY PRN Administration Constip unreliev by MOM/or NPO Metoclopramide HCl 5 mg 02/04/20 12:00 02/04/20 12:42 Reglan IV 5 mg Q6HR CAR Administration Metoprolol Tartrate 5 mg 01/11/20 08:00 02/03/20 07:16 Metoprolol IV 5 mg Q6H PRN Administration SEE INSTRUCTIONS Metoprolol Tartrate 25 mg 01/11/20 13:00 02/04/20 12:42 Metoprolol PO Not Given Q6H CAR Midodrine 15 mg 02/04/20 16:00 Proamatine PO TID@0800,1200,1600 [facility] Morphine Sulfate 2 mg 01/06/20 15:41 02/03/20 17:27 Morphine IV 2 mg Q4H PRN Administration Pain, Moderate (4-6) Multi-Ingred Cream/Lotion/Oil/Oint 1 applic 02/01/20 15:52 Artificial Tears Ophth Oint OU Q4HR PRN Dry Eye(s) Nitroglycerin 0.4 mg 01/19/20 21:09 01/20/20 03:03 Nitrostat SL 0.4 mg .Q5MIN PRN Administration Chest Pain Ondansetron HCl 4 mg 01/05/20 14:37 02/02/20 10:52 Zofran IV 4 mg Q8H PRN Administration Nausea And Vomiting Polyethylene Glycol 17 gm 12/04/19 22:00 02/03/20 21:08 Miralax 3350 PO 17 gm QHS CAR Administration Quetiapine Fumarate 300 mg 01/13/20 22:00 02/04/20 09:43 Seroquel PO 300 mg BID CAR Administration Scopolamine 1 each 01/07/20 20:00 01/07/20 21:08 Transderm-Scop TD 1 each Q72HR CAR Administration Simple Syrup 15 ml 01/09/20 12:01 Simple Syrup FEEDTUBE PRN PRN Hypoglycemia Simple Syrup 30 ml 01/09/20 12:01 Simple Syrup FEEDTUBE PRN PRN Hypoglycemia Sodium Bicarbonate 325 mg 01/09/20 12:01 Sodium Bicarbonate FEEDTUBE PRN PRN For Clogged Feeding Tube Sodium Chloride 10 ml 11/24/19 10:00 02/04/20 09:42 Sodium Chloride Flush Syringe 10 Ml IV 10 ml BID CAR Administration Tamsulosin HCl 0.8 mg 12/20/19 22:00 02/03/20 21:08 Flomax PO 0.8 mg QHS CAR Administration Nutrition/Malnutrition Assess - Dietary Evaluation Nutrition/Malnutrition Findings: Nutrition Notes Start: 11/24/19 12:22 Freq: Status: Active Protocol: Document 02/04/20 12:28 AL (Rec: 02/04/20 12:29 AL [id number]) Co-Sign 02/04/20 12:28 MK Nutrition Notes Initial or Follow up Brief Note Current Diagnosis Coronary Artery Disease,Heart Failure,Respiratory Failure, Stroke,Hyperlipidemia Other Pertinent Diagnosis Partial SBO, pneu, ventilated trach Current Diet NPO Subjective/Other Information F/U for TF restart and weight. Per RN, patient is still NPO. TF is still on hold. NGT on LIS. Nutrition Intervention Follow-Up By: 02/09/20 Additional Comments F/U for POC
[2020-02-04 17:01] LABS: Hematocrit 26.9 % (35.5-45.6); Hemoglobin 8.6 gm/dl (11.8-15.2); Mean Corpuscular HGB Conc 32 % (32-34); Mean Corpuscular Volume 80 fl (84-94); Platelet Count 203 K/mm3 (140-440); Red Blood Count 3.38 M/mm3 (3.65-5.03); Red Cell Distribution Width 19.5 % (13.2-15.2)
[2020-02-04] MEDS: D5W/0.9% NACL 1,000 ML IV SCH (17:03)
--- NOTE | 2020-02-04 17:16 | Cat Scan Report ---
CT ABDOMEN AND PELVIS WITHOUT CONTRAST INDICATION / CLINICAL INFORMATION: N/V, hx of partial SBO. TECHNIQUE: Axial CT images were obtained through the abdomen and pelvis without IV contrast. All CT scans at [facility] location are performed using CT dose reduction for ALARA by means of automated exposure control. COMPARISON: Radiographs of the abdomen dated 02/02/2020. Prior CT abdomen pelvis dated 01/05/2020 FINDINGS: LOWER CHEST: Interval worsening of previously bibasilar pulmonary consolidations or ground glass opac ities and enlarging bilateral pleural effusions, right greater than left. Bilateral gynecomastia. Cor onary artery calcification is noted. LIVER: No significant abnormality. GALLBLADDER: Vicarious excretion of contrast material noted within the gallbladder. BILE DUCTS: No significant abnormality. PANCREAS: Previously noted hypoattenuating lesion of the pancreatic head is unchanged since prior exa m and measures 2.5 cm. This lesion has enlarged since the prior exam dated 12/05/2011 where it measure d 1.4 cm. SPLEEN: No significant abnormality. ADRENALS: No significant abnormality. RIGHT KIDNEY / URETER: No significant abnormality. LEFT KIDNEY / URETER: No significant abnormality. STOMACH / SMALL BOWEL: Gastrostomy tube is noted in within the body of the gastric lumen exiting the ventral abdominal wall. NG tube is noted with its tip at the gastric body. Interval resolution of pre viously noted dilated small bowel loops. COLON: Significant maldonado colonic diverticulosis. No evidence of diverticulitis. Abundant fecal material noted throughout the large bowel and distended rectal vault. APPENDIX: No significant abnormality. PERITONEUM: No free fluid. No free air. No fluid collection. LYMPH NODES: No significant adenopathy. AORTA / ARTERIES: No significant abnormality. IVC / VEINS: No significant abnormality. URINARY BLADDER: Distended urinary bladder. REPRODUCTIVE ORGANS: No significant abnormality. ADDITIONAL FINDINGS: Minimally worsened body wall anasarca. Soft tissue nodularity in the right ventr al abdominal wall likely secondary to injection. Fat-containing a buckle hernia similar to prior exam . SKELETAL SYSTEM: No significant interval change since prior exam IMPRESSION: 1. Interval resolution of previously noted mechanical bowel obstruction. 2. Abundant fecal material noted throughout the colon and rectal vault. Correlate clinically for sign s and symptoms of constipation. 3. Interval worsening of the previously noted consolidations, groundglass opacities, and bilateral pl eural effusions since prior exam. 4. Gastrostomy tube in stable position. Interval placement of NG tube with its tip in the gastric bod y. 5. Interval enlargement of the hypoattenuating lesion of the pancreatic head now measuring 2.5 cm, pr eviously 1.[address] scan dated 12/05/2011. 6. Please see above for full details. Signer Name: Jairon Sorto MD Signed: 02/04/2020 5:12 PM Workstation Name: [id number]
[2020-02-04 17:41] LABS: Alanine Aminotransferase 394 units/L (7-56); Albumin 2.9 g/dL (3.9-5); BUN/Creatinine Ratio 46; Blood Urea Nitrogen 37 mg/dL (9-20); Calcium 9.2 mg/dL (8.4-10.2); Hemolysis Index 8
[2020-02-04] MEDS: TAMSULOSIN 0.4 MG CAP PO SCH (21:21)
[2020-02-04] MEDS: POLYETHYLENE GLYCOL 3350 17 GM POWDER PO SCH (21:22)
[2020-02-05] MEDS: INSULIN REGULAR, HUMAN 100 UNIT/ML 3ML VIAL SUB-Q SCH ×3 (00:53→23:43)
[2020-02-05] MEDS: METOCLOPRAMIDE 10 MG/2 ML INJ IV SCH ×4 (00:54→17:26)
[2020-02-05] MEDS: METOPROLOL TARTRATE 25 MG TAB PO SCH ×3 (00:55→08:00)
[2020-02-05 07:20] LABS: Alanine Aminotransferase 352 units/L (7-56); Albumin 2.9 g/dL (3.9-5); Blood Urea Nitrogen 32 mg/dL (9-20); Calcium 9.5 mg/dL (8.4-10.2); Hemolysis Index 8
[2020-02-05 07:23] LABS: BUN/Creatinine Ratio 46
[2020-02-05] MEDS: CLOPIDOGREL 75 MG TAB PO SCH (10:03)
[2020-02-05] MEDS: GLYCOPYRROLATE 2 MG TAB PO SCH ×3 (10:03→21:07)
[2020-02-05] MEDS: QUEtiapine 100 MG TAB PO SCH ×2 (10:03→21:06)
[2020-02-05] MEDS: MIDODRINE 5 MG TAB PO SCH ×3 (10:03→17:27)
[2020-02-05] MEDS: POTASSIUM CHLORIDE 20 MEQ PACKET FEEDTUBE SCH ×2 (10:04→13:21)
[2020-02-05] MEDS: AMIODARONE 200 MG TAB PO SCH (10:04)
[2020-02-05] MEDS: APIXABAN 5 MG TAB PO SCH ×2 (10:04→20:59)
[2020-02-05 10:46] LABS: Hepatitis B Surface Antigen Non-Reactive (Negative); Hepatitis C Virus Antibody Non-Reactive (NonReactive)
--- NOTE | 2020-02-05 11:13 | Progress Note ---
Assessment and Plan Chest pain, resolved LHC done 01/22/20 widely patent previous LAD stent. We found mild nonobstructive atherosclerosis of the mid right coronary artery. Otherwise the rest of the coronary system was without significant atherosclerosis. LVEF 40 to 45%. There was some hypokinesis of the basal inferior wall suggestive of previous or recent infarct. ECG done 01/19/20 shows sinus rhythm with low voltage QRS and subtle ST segment elevations in the inferolateral leads that suggested possible concern for an acute injury at that time. Atrial fibrillation, paroxysmal on amiodarone and metoprolol Ischemic Cardiomyopathy re-echo this presentation reports an LVEF 40-45%. Hx of CAD Multifocal pneumonia negative COVID-19 test x 3 Chronic Respiratory failure s/p trach History of COPD Acute PE/DVT -on Eliquis Anemia Partial SBO vs ileus Recommend: Continue guideline directed medical therapy for coronary artery disease Due to elevated LFTs, will discontinue amiodarone and increase metoprolol to 50 mg every 6 hrs for suppression atrial fibrillation. Otherwise, conservative cardiac management. Subjective Date of service: 02/05/20 Principal diagnosis: Ac hypoxemic resp failure; Pneumonia; PUI COVID-19; CHF; COPD; HTN Interval history: Patient is resting in bed comfortably. No cardiac complaints. Stable sinus rhythm on telemetry. Objective Vital Signs Temp Pulse Pulse Resp BP Pulse Ox Pulse Ox 02/05/20 08:21 114 H 15 119/77 100 100 02/05/20 08:00 101 H 15 115/86 100 02/05/20 07:00 104 H 17 112/77 100 02/05/20 06:01 123 H 12 104/76 100 02/05/20 05:29 109 H 114/73 02/05/20 05:01 134 H 17 114/73 100 02/05/20 04:37 100 02/05/20 04:33 127 H 17 107/75 100 02/05/20 04:01 140 H 16 98/75 100 02/05/20 04:00 97.6 F 106 H 132 H 18 100 02/05/20 03:00 126 H 20 100/76 100 02/05/20 02:00 108 H 20 100/68 100 02/05/20 01:01 130 H 12 117/90 02/05/20 00:31 118 H 18 114/67 100 02/05/20 00:30 100 02/05/20 00:00 115 H 112 H 17 104/67 100 02/04/20 23:39 97.8 F 02/04/20 23:00 132 H 17 109/74 100 02/04/20 22:01 131 H 17 107/76 100 02/04/20 21:35 132 H 15 119/83 100 02/04/20 21:00 130 H 13 101/72 100 02/04/20 20:00 98.8 F 131 H 132 H 12 103/74 100 02/04/20 19:00 113 H 18 97/58 100 02/04/20 18:00 116 H 16 101/70 100 02/04/20 17:40 140 H 17 106/71 100 02/04/20 17:00 135 H 15 100/76 100 02/04/20 16:01 123 H 11 L 124/80 100 02/04/20 16:00 98.6 F 106 H 123 H 15 99 02/04/20 15:00 120 H 14 84/69 100 02/04/20 14:00 144 H 17 94/32 100 02/04/20 13:01 134 H 10 L 99/69 100 02/04/20 12:42 133 H 87/63 02/04/20 12:28 133 H 16 79/61 100 02/04/20 12:00 98.5 F 125 H 132 H 15 86/56 100 - Physical Examination General: Other (s/p trach) HEENT: Positive: PERRL Neck: Positive: neck supple Cardiac: Positive: Reg Rate and Rhythm Neuro: Positive: Weakness - Labs and Meds Cardiac Enzymes 02/04/20 02/05/20 Range/Units 16:24 06:37 AST 169 H 134 H (5-40) units/L CBC 02/04/20 Range/Units 16:24 WBC 8.6 (4.5-11.0) K/mm3 RBC 3.38 L (3.65-5.03) M/mm3 Hgb 8.6 L (11.8-15.2) gm/dl Hct 26.9 L (35.5-45.6) % Plt Count 203 (140-440) K/mm3 Comprehensive Metabolic Panel 02/04/20 02/05/20 Range/Units 16:24 06:37 Sodium 144 144 (137-145) mmol/L Potassium 3.4 L 3.1 L (3.6-5.0) mmol/L Chloride 101.6 100.9 (98-107) mmol/L Carbon Dioxide 31 H 35 H (22-30) mmol/L BUN 37 H 32 H (9-20) mg/dL Creatinine 0.8 0.7 L (0.8-1.3) mg/dL Glucose 70 L 77 (75-100) mg/dL Calcium 9.2 9.5 (8.4-10.2) mg/dL AST 169 H 134 H (5-40) units/L ALT 394 H 352 H (7-56) units/L Alkaline Phosphatase 89 88 (35-129) units/L Total Protein 6.5 6.5 (6.3-8.2) g/dL Albumin 2.9 L 2.9 L (3.9-5) g/dL - Allied health notes Allied health notes reviewed: nursing
[2020-02-05] MEDS: METOPROLOL TARTRATE 50 MG TAB PO SCH ×2 (13:11→17:27)
--- NOTE | 2020-02-05 15:17 | Progress Note ---
Assessment and Plan Acute hypoxemic respiratory failure Bilateral pneumonia, community acquired. Acute LLL branch P.E. Acute DVT Person under investigation for COVID-19 infection. Acute congestive heart failure exacerbation. History of cerebrovascular accident. Acute chronic obstructive pulmonary disease exacerbation. Hypertension and hypertensive urgency at presentation. History of arthritis. Leukocytosis. Lactic acidosis. Oropharyngeal dysphagia - placed sánchez catheter - continue Flomax but increase dose - to resume tube feeds - antiinfective's per ID rec's - continue care as below otherwise; - Reglan 5mg IV q6h - Midodrine for BP support - prn mucomyst nebs re: secretions - continue full anticoagulation with Apixaban - continue daily SAT's and SBT assessment as tolerated - continue seroquel for anxiolysis / delirium - COVID isolation per facility protocol - prn diuresis while following electrolytes / I's & O's - continue to wean oxygen for O2 sat's > 92% - continue bronchodilators with routine trach care and pulmonary hygiene per RT - continue Robinul & Scopolamine for secretion control - VAP bundle addressed (Aspiration precautions, HOB >40) - continue to wean per pulmonary driven protocols - sedation target is RASS 0 to -1 - continue prn analgesia per CPOT score - follow clinically re: fever curves / trend WBC - Avoid delirium (no benzodiazepines if they can be avoided) - Maintain sleep-wake cycle - enteral nutrition at goal rate as tolerated - continue accucheck's with glycemic control per SSI for target blood glucose goal of 140-180 mg/dL while critically ill; Avoid hypoglycemia - for VTE he is on IV Heparin - continue stress ulcer prophylaxis with Famotidine - continue mobility protocols for pressure ulcer prophylaxis - continue fall precautions - continue wound care management per RN / WCT - Supportive transfusions to keep HgB>7g/dL - CXR's and ABG's prn - Continue to monitor neurologic function - Continue chronic home medications - Continue all supportive care ........ re-evaluate in am & prn CONDITION: CRITICAL PROGNOSIS: GUARDED CODE STATUS: FULL CODE The high probability of a clinically significant, sudden or life threatening deterioration of the [Respiratory, cardiovascular & neurological] system(s) required my full and direct attention, intervention and personal management. The aggregate critical care time was [32] minutes without overlap. Time includes spent on [x] Data Review and interpretation [x] Patient assessment and monitoring of vital signs [x] Documentation [x] Medication orders and management Subjective Date of service: 02/05/20 Principal diagnosis: Ac hypoxemic resp failure; Pneumonia; PUI COVID-19; CHF; COPD; HTN Interval history: Patient is seen today for: Acute hypoxemic respiratory failure; Adan. Pneumonia (CAP); PUI COVID-19 infection; AE-CHF; AE-COPD; H/O CVA; HTN Seen and examined at bedside; 24 hour events reviewed; nursing and respiratory care staff consulted; no adverse overnight events reported to me; resting peacefully in bed; BP's a little better today; still with urinary retention and 1.2 liters on straight cath; cleared to resume tube feeds; on PSV but complains of SOB; no N/V today Objective Vital Signs - 12hr 02/05/20 02/05/20 02/05/20 04:00 04:01 04:33 Temperature 97.6 F Pulse Rate 106 H 140 H 127 H Pulse Rate [ 132 H From Monitor] Respiratory 18 16 17 Rate Blood Pressure 98/75 107/75 O2 Sat by Pulse 100 100 100 Oximetry O2 Sat by Pulse Oximetry [ Assessment] 02/05/20 02/05/20 02/05/20 04:37 05:01 05:29 Temperature Pulse Rate 134 H 109 H Pulse Rate [ From Monitor] Respiratory 17 Rate Blood Pressure 114/73 114/73 O2 Sat by Pulse 100 Oximetry O2 Sat by Pulse 100 Oximetry [ Assessment] 02/05/20 02/05/20 02/05/20 06:01 07:00 08:00 Temperature 97.5 F L Pulse Rate 123 H 104 H 105 H Pulse Rate [ From Monitor] Respiratory 12 17 15 Rate Blood Pressure 104/76 112/77 115/86 O2 Sat by Pulse 100 100 100 Oximetry O2 Sat by Pulse Oximetry [ Assessment] 02/05/20 02/05/20 02/05/20 08:21 09:00 10:00 Temperature Pulse Rate 114 H 102 H 103 H Pulse Rate [ From Monitor] Respiratory 15 21 22 Rate Blood Pressure 119/77 115/86 113/86 O2 Sat by Pulse 100 100 99 Oximetry O2 Sat by Pulse 100 Oximetry [ Assessment] 02/05/20 02/05/20 02/05/20 11:00 11:33 12:00 Temperature 98 F Pulse Rate 105 H 107 H 71 Pulse Rate [ From Monitor] Respiratory 20 29 H 20 Rate Blood Pressure 122/86 133/79 128/90 O2 Sat by Pulse 100 100 100 Oximetry O2 Sat by Pulse Oximetry [ Assessment] 02/05/20 13:11 Temperature Pulse Rate Pulse Rate [ From Monitor] Respiratory Rate Blood Pressure 107/86 O2 Sat by Pulse Oximetry O2 Sat by Pulse Oximetry [ Assessment] Constitutional: no acute distress, other (elelelderly and obese male, normocephalic with mildly increased respiratory effort at rest) Eyes: non-icteric ENT: oropharynx moist, other (+ midline tracheostomy) Neck: supple, no JVD Effort: mildly labored Ascultation: Bilateral: diminished breath sounds, rhonchi Percussion: Bilateral: not dull Cardiovascular: irregular rhythm, other (flow murmur) Gastrointestinal: normoactive bowel sounds, soft, non-tender, non-distended (protuberant), other (protuberant; PEG in place) Integumentary: normal Extremities: no cyanosis, pulses normal, no ischemia or petechiae, edema (bi lateral upper ) Neurologic: non-focal exam (moves extremities), pupils equal and round, CN II- XII normal, motor strength normal and (weak) Psychiatric: mood appropriate, affect normal CBC and BMP: 02/04/20 16:24 02/05/20 06:37 ABG, PT/INR, D-dimer: ABG ABG pH 7.447 pH Units (7.350-7.450) 01/25/20 21:02 POC ABG pCO2 45.6 mmHg (32.0-48.0) 01/12/20 13:58 ABG pCO2 47.0 mm Hg 01/25/20 21:02 POC ABG pO2 76.6 mmHg (83-108) L 01/12/20 13:58 ABG pO2 57.5 mm Hg (80.0-90.0) L 01/25/20 21:02 POC ABG HCO3 31.2 01/12/20 13:58 ABG O2 Saturation 90.3 % (95.0-99.0) L 01/25/20 21:02 PT/INR, D-dimer PT 16.9 Sec. (12.2-14.9) H 01/22/20 09:58 INR 1.34 (0.87-1.13) H 01/22/20 09:58 Abnormal lab findings: Abnormal Labs 11/24/19 11/24/19 11/24/19 02:53 02:53 03:45 WBC 14.3 H RBC Hgb Hct MCHC RDW 17.2 H MCV MCH Lymph % (Auto) [place] % (Auto) [place] # Eos # Lymph # (Auto) [place] # (Auto) Eos # (Auto) Seg Neutrophils % Seg Neuts % (Manual) Baso # (Auto) Lymphocytes % (Manual) Monocytes % (Manual) Eosinophils % (Manual) Basophils % (Manual) Seg Neutrophils # Seg Neutrophils # Man 8.3 H Lymphocytes # (Manual) Monocytes # (Manual) 0.9 H Eosinophils # (Manual) Nucleated RBC % Basophils # (Manual) PT INR APTT Heparin Anti-Xa Level ABG pH 7.313 L POC ABG pO2 ABG pO2 102.8 H ABG HCO3 ABG O2 Saturation ABG Base Excess -2.9 L POC ABG pCO2 ABG Hemoglobin ABG Oxyhemoglobin ABG Glucose Oxyhemoglobin 93.9 L Sodium Potassium Chloride Carbon Dioxide BUN Creatinine Glucose 195 H POC Glucose Lactic Acid Calcium Phosphorus Magnesium AST ALT Lactate Dehydrogenase Total Bilirubin CK-MB (CK-2) 4.3 H C-Reactive Protein NT-Pro-B Natriuret Pep 1181 H Total Protein Albumin Arterial Blood Glucose Urine WBC (Auto) Urine Creatinine 11/24/19 11/24/19 11/24/19 04:53 04:53 10:37 WBC RBC Hgb Hct MCHC RDW MCV MCH Lymph % (Auto) [place] % (Auto) [place] # Eos # Lymph # (Auto) [place] # (Auto) Eos # (Auto) Seg Neutrophils % Seg Neuts % (Manual) Baso # (Auto) Lymphocytes % (Manual) Monocytes % (Manual) Eosinophils % (Manual) Basophils % (Manual) Seg Neutrophils # Seg Neutrophils # Man Lymphocytes # (Manual) Monocytes # (Manual) Eosinophils # (Manual) Nucleated RBC % Basophils # (Manual) PT INR APTT Heparin Anti-Xa Level ABG pH POC ABG pO2 ABG pO2 ABG HCO3 ABG O2 Saturation ABG Base Excess POC ABG pCO2 ABG Hemoglobin ABG Oxyhemoglobin ABG Glucose Oxyhemoglobin Sodium Potassium Chloride Carbon Dioxide BUN Creatinine Glucose 162 H POC Glucose Lactic Acid 2.40 H* 2.50 H* Calcium Phosphorus Magnesium AST ALT Lactate Dehydrogenase 240 H Total Bilirubin CK-MB (CK-2) C-Reactive Protein NT-Pro-B Natriuret Pep Total Protein Albumin Arterial Blood Glucose Urine WBC (Auto) Urine Creatinine 11/24/19 11/24/19 11/24/19 12:21 14:50 19:54 WBC RBC Hgb Hct MCHC RDW MCV MCH Lymph % (Auto) [place] % (Auto) [place] # Eos # Lymph # (Auto) [place] # (Auto) Eos # (Auto) Seg Neutrophils % Seg Neuts % (Manual) Baso # (Auto) Lymphocytes % (Manual) Monocytes % (Manual) Eosinophils % (Manual) Basophils % (Manual) Seg Neutrophils # Seg Neutrophils # Man Lymphocytes # (Manual) Monocytes # (Manual) Eosinophils # (Manual) Nucleated RBC % Basophils # (Manual) PT INR APTT Heparin Anti-Xa Level ABG pH POC ABG pO2 ABG pO2 ABG HCO3 ABG O2 Saturation ABG Base Excess POC ABG pCO2 ABG Hemoglobin ABG Oxyhemoglobin ABG Glucose Oxyhemoglobin Sodium Potassium Chloride Carbon Dioxide BUN Creatinine Glucose POC Glucose 145 H 143 H 124 H Lactic Acid Calcium Phosphorus Magnesium AST ALT Lactate Dehydrogenase Total Bilirubin CK-MB (CK-2) C-Reactive Protein NT-Pro-B Natriuret Pep Total Protein Albumin Arterial Blood Glucose Urine WBC (Auto) Urine Creatinine 11/25/19 11/25/19 11/25/19 00:18 03:18 05:11 WBC 13.7 H RBC Hgb Hct MCHC RDW 17.1 H MCV MCH Lymph % (Auto) 10.8 L [place] % (Auto) 8.7 H [place] # 1.2 H Eos # Lymph # (Auto) [place] # (Auto) Eos # (Auto) Seg Neutrophils % 80.2 H Seg Neuts % (Manual) Baso # (Auto) Lymphocytes % (Manual) Monocytes % (Manual) Eosinophils % (Manual) Basophils % (Manual) Seg Neutrophils # 11.0 H Seg Neutrophils # Man Lymphocytes # (Manual) Monocytes # (Manual) Eosinophils # (Manual) Nucleated RBC % Basophils # (Manual) PT INR APTT Heparin Anti-Xa Level ABG pH 7.333 L POC ABG pO2 ABG pO2 61.2 L ABG HCO3 ABG O2 Saturation 90.2 L ABG Base Excess POC ABG pCO2 ABG Hemoglobin 13.7 L ABG Oxyhemoglobin ABG Glucose Oxyhemoglobin 88.2 L Sodium Potassium Chloride Carbon Dioxide BUN Creatinine Glucose POC Glucose 109 H Lactic Acid Calcium Phosphorus Magnesium AST ALT Lactate Dehydrogenase Total Bilirubin CK-MB (CK-2) C-Reactive Protein NT-Pro-B Natriuret Pep Total Protein Albumin Arterial Blood Glucose Urine WBC (Auto) Urine Creatinine 11/25/19 11/25/19 11/26/19 05:11 11:40 03:12 WBC RBC Hgb Hct MCHC RDW MCV MCH Lymph % (Auto) [place] % (Auto) [place] # Eos # Lymph # (Auto) [place] # (Auto) Eos # (Auto) Seg Neutrophils % Seg Neuts % (Manual) Baso # (Auto) Lymphocytes % (Manual) Monocytes % (Manual) Eosinophils % (Manual) Basophils % (Manual) Seg Neutrophils # Seg Neutrophils # Man Lymphocytes # (Manual) Monocytes # (Manual) Eosinophils # (Manual) Nucleated RBC % Basophils # (Manual) PT INR APTT Heparin Anti-Xa Level ABG pH POC ABG pO2 ABG pO2 155.1 H ABG HCO3 27.8 H ABG O2 Saturation ABG Base Excess POC ABG pCO2 ABG Hemoglobin 12.2 L ABG Oxyhemoglobin ABG Glucose Oxyhemoglobin Sodium Potassium Chloride Carbon Dioxide BUN 23 H Creatinine Glucose 110 H POC Glucose 108 H Lactic Acid Calcium Phosphorus Magnesium AST ALT Lactate Dehydrogenase Total Bilirubin CK-MB (CK-2) C-Reactive Protein NT-Pro-B Natriuret Pep Total Protein Albumin Arterial Blood Glucose Urine WBC (Auto) Urine Creatinine 11/26/19 11/26/19 11/26/19 06:17 10:43 10:43 WBC 11.4 H RBC Hgb Hct MCHC RDW 17.1 H MCV MCH Lymph % (Auto) [place] % (Auto) [place] # Eos # Lymph # (Auto) [place] # (Auto) Eos # (Auto) Seg Neutrophils % Seg Neuts % (Manual) Baso # (Auto) Lymphocytes % (Manual) Monocytes % (Manual) Eosinophils % (Manual) Basophils % (Manual) Seg Neutrophils # Seg Neutrophils # Man Lymphocytes # (Manual) Monocytes # (Manual) Eosinophils # (Manual) Nucleated RBC % Basophils # (Manual) PT INR APTT Heparin Anti-Xa Level ABG pH POC ABG pO2 ABG pO2 ABG HCO3 ABG O2 Saturation ABG Base Excess POC ABG pCO2 ABG Hemoglobin ABG Oxyhemoglobin ABG Glucose Oxyhemoglobin Sodium Potassium Chloride Carbon Dioxide BUN 29 H Creatinine Glucose POC Glucose 107 H Lactic Acid Calcium Phosphorus Magnesium AST ALT Lactate Dehydrogenase Total Bilirubin CK-MB (CK-2) C-Reactive Protein NT-Pro-B Natriuret Pep Total Protein Albumin Arterial Blood Glucose Urine WBC (Auto) Urine Creatinine 11/26/19 11/27/19 11/27/19 17:11 01:53 04:11 WBC RBC Hgb Hct MCHC RDW MCV MCH Lymph % (Auto) [place] % (Auto) [place] # Eos # Lymph # (Auto) [place] # (Auto) Eos # (Auto) Seg Neutrophils % Seg Neuts % (Manual) Baso # (Auto) Lymphocytes % (Manual) Monocytes % (Manual) Eosinophils % (Manual) Basophils % (Manual) Seg Neutrophils # Seg Neutrophils # Man Lymphocytes # (Manual) Monocytes # (Manual) Eosinophils # (Manual) Nucleated RBC % Basophils # (Manual) PT INR APTT Heparin Anti-Xa Level ABG pH POC ABG pO2 ABG pO2 ABG HCO3 29.2 H ABG O2 Saturation ABG Base Excess 3.4 H POC ABG pCO2 ABG Hemoglobin 13.3 L ABG Oxyhemoglobin ABG Glucose Oxyhemoglobin 94.5 L Sodium Potassium Chloride Carbon Dioxide BUN Creatinine Glucose POC Glucose 113 H 108 H Lactic Acid Calcium Phosphorus Magnesium AST ALT Lactate Dehydrogenase Total Bilirubin CK-MB (CK-2) C-Reactive Protein NT-Pro-B Natriuret Pep Total Protein Albumin Arterial Blood Glucose Urine WBC (Auto) Urine Creatinine 11/27/19 11/28/19 11/28/19 05:27 05:00 05:25 WBC RBC Hgb Hct MCHC RDW MCV MCH Lymph % (Auto) [place] % (Auto) [place] # Eos # Lymph # (Auto) [place] # (Auto) Eos # (Auto) Seg Neutrophils % Seg Neuts % (Manual) Baso # (Auto) Lymphocytes % (Manual) Monocytes % (Manual) Eosinophils % (Manual) Basophils % (Manual) Seg Neutrophils # Seg Neutrophils # Man Lymphocytes # (Manual) Monocytes # (Manual) Eosinophils # (Manual) Nucleated RBC % Basophils # (Manual) PT INR APTT Heparin Anti-Xa Level ABG pH POC ABG pO2 68.1 L ABG pO2 ABG HCO3 ABG O2 Saturation ABG Base Excess POC ABG pCO2 ABG Hemoglobin ABG Oxyhemoglobin 91.2 L ABG Glucose Oxyhemoglobin Sodium Potassium Chloride Carbon Dioxide BUN Creatinine Glucose POC Glucose 111 H 110 H Lactic Acid Calcium Phosphorus Magnesium AST ALT Lactate Dehydrogenase Total Bilirubin CK-MB (CK-2) C-Reactive Protein NT-Pro-B Natriuret Pep Total Protein Albumin Arterial Blood Glucose Urine WBC (Auto) Urine Creatinine 11/28/19 11/28/19 11/28/19 12:08 13:47 13:47 WBC 11.3 H RBC Hgb Hct MCHC RDW 16.1 H MCV MCH Lymph % (Auto) [place] % (Auto) 9.9 H [place] # 1.1 H Eos # Lymph # (Auto) [place] # (Auto) Eos # (Auto) Seg Neutrophils % 71.4 H Seg Neuts % (Manual) Baso # (Auto) Lymphocytes % (Manual) Monocytes % (Manual) Eosinophils % (Manual) Basophils % (Manual) Seg Neutrophils # 8.1 H Seg Neutrophils # Man Lymphocytes # (Manual) Monocytes # (Manual) Eosinophils # (Manual) Nucleated RBC % Basophils # (Manual) PT INR APTT Heparin Anti-Xa Level ABG pH POC ABG pO2 ABG pO2 ABG HCO3 ABG O2 Saturation ABG Base Excess POC ABG pCO2 ABG Hemoglobin ABG Oxyhemoglobin ABG Glucose Oxyhemoglobin Sodium Potassium Chloride Carbon Dioxide BUN 23 H Creatinine Glucose 123 H POC Glucose 112 H Lactic Acid Calcium Phosphorus Magnesium AST ALT Lactate Dehydrogenase Total Bilirubin CK-MB (CK-2) C-Reactive Protein NT-Pro-B Natriuret Pep Total Protein Albumin 3.7 L Arterial Blood Glucose Urine WBC (Auto) Urine Creatinine 11/28/19 11/29/19 11/29/19 17:26 03:55 17:04 WBC RBC Hgb Hct MCHC RDW MCV MCH Lymph % (Auto) [place] % (Auto) [place] # Eos # Lymph # (Auto) [place] # (Auto) Eos # (Auto) Seg Neutrophils % Seg Neuts % (Manual) Baso # (Auto) Lymphocytes % (Manual) Monocytes % (Manual) Eosinophils % (Manual) Basophils % (Manual) Seg Neutrophils # Seg Neutrophils # Man Lymphocytes # (Manual) Monocytes # (Manual) Eosinophils # (Manual) Nucleated RBC % Basophils # (Manual) PT INR APTT Heparin Anti-Xa Level ABG pH POC ABG pO2 ABG pO2 65.7 L ABG HCO3 28.3 H ABG O2 Saturation 93.9 L ABG Base Excess 3.6 H POC ABG pCO2 ABG Hemoglobin 13.3 L ABG Oxyhemoglobin ABG Glucose Oxyhemoglobin 91.5 L Sodium Potassium Chloride Carbon Dioxide BUN Creatinine Glucose POC Glucose 123 H 119 H Lactic Acid Calcium Phosphorus Magnesium AST ALT Lactate Dehydrogenase Total Bilirubin CK-MB (CK-2) C-Reactive Protein NT-Pro-B Natriuret Pep Total Protein Albumin Arterial Blood Glucose Urine WBC (Auto) Urine Creatinine 11/30/19 11/30/19 11/30/19 04:17 04:17 04:56 WBC 13.4 H RBC Hgb Hct MCHC RDW 15.6 H MCV MCH Lymph % (Auto) [place] % (Auto) [place] # Eos # Lymph # (Auto) [place] # (Auto) Eos # (Auto) Seg Neutrophils % Seg Neuts % (Manual) Baso # (Auto) Lymphocytes % (Manual) Monocytes % (Manual) Eosinophils % (Manual) Basophils % (Manual) Seg Neutrophils # Seg Neutrophils # Man Lymphocytes # (Manual) Monocytes # (Manual) Eosinophils # (Manual) Nucleated RBC % Basophils # (Manual) PT INR APTT Heparin Anti-Xa Level ABG pH POC ABG pO2 ABG pO2 56.3 L ABG HCO3 29.3 H ABG O2 Saturation 91.5 L ABG Base Excess 4.7 H POC ABG pCO2 ABG Hemoglobin 12.1 L ABG Oxyhemoglobin ABG Glucose Oxyhemoglobin 89.2 L Sodium 147 H Potassium Chloride Carbon Dioxide BUN 30 H Creatinine Glucose 124 H POC Glucose Lactic Acid Calcium Phosphorus Magnesium AST ALT Lactate Dehydrogenase Total Bilirubin CK-MB (CK-2) C-Reactive Protein NT-Pro-B Natriuret Pep Total Protein Albumin 3.8 L Arterial Blood Glucose Urine WBC (Auto) Urine Creatinine 11/30/19 11/30/19 11/30/19 05:51 11:54 18:17 WBC RBC Hgb Hct MCHC RDW MCV MCH Lymph % (Auto) [place] % (Auto) [place] # Eos # Lymph # (Auto) [place] # (Auto) Eos # (Auto) Seg Neutrophils % Seg Neuts % (Manual) Baso # (Auto) Lymphocytes % (Manual) Monocytes % (Manual) Eosinophils % (Manual) Basophils % (Manual) Seg Neutrophils # Seg Neutrophils # Man Lymphocytes # (Manual) Monocytes # (Manual) Eosinophils # (Manual) Nucleated RBC % Basophils # (Manual) PT INR APTT Heparin Anti-Xa Level ABG pH POC ABG pO2 ABG pO2 ABG HCO3 ABG O2 Saturation ABG Base Excess POC ABG pCO2 ABG Hemoglobin ABG Oxyhemoglobin ABG Glucose Oxyhemoglobin Sodium Potassium Chloride Carbon Dioxide BUN Creatinine Glucose POC Glucose 127 H 115 H 143 H Lactic Acid Calcium Phosphorus Magnesium AST ALT Lactate Dehydrogenase Total Bilirubin CK-MB (CK-2) C-Reactive Protein NT-Pro-B Natriuret Pep Total Protein Albumin Arterial Blood Glucose Urine WBC (Auto) Urine Creatinine 12/01/19 12/01/19 12/01/19 01:18 05:22 12:16 WBC RBC Hgb Hct MCHC RDW MCV MCH Lymph % (Auto) [place] % (Auto) [place] # Eos # Lymph # (Auto) [place] # (Auto) Eos # (Auto) Seg Neutrophils % Seg Neuts % (Manual) Baso # (Auto) Lymphocytes % (Manual) Monocytes % (Manual) Eosinophils % (Manual) Basophils % (Manual) Seg Neutrophils # Seg Neutrophils # Man Lymphocytes # (Manual) Monocytes # (Manual) Eosinophils # (Manual) Nucleated RBC % Basophils # (Manual) PT INR APTT Heparin Anti-Xa Level ABG pH POC ABG pO2 ABG pO2 ABG HCO3 ABG O2 Saturation ABG Base Excess POC ABG pCO2 ABG Hemoglobin ABG Oxyhemoglobin ABG Glucose Oxyhemoglobin Sodium Potassium 3.5 L Chloride 107.8 H Carbon Dioxide BUN 37 H Creatinine Glucose 157 H POC Glucose 118 H 148 H Lactic Acid Calcium 8.2 L D Phosphorus Magnesium AST 48 H ALT 60 H Lactate Dehydrogenase 194 H Total Bilirubin CK-MB (CK-2) C-Reactive Protein 8.50 H NT-Pro-B Natriuret Pep Total Protein 5.5 L Albumin 2.8 L Arterial Blood Glucose Urine WBC (Auto) Urine Creatinine 12/01/19 12/02/19 12/02/19 18:04 00:05 05:16 WBC 11.4 H RBC Hgb Hct MCHC RDW 15.9 H MCV MCH Lymph % (Auto) [place] % (Auto) 9.9 H [place] # 1.1 H Eos # Lymph # (Auto) [place] # (Auto) Eos # (Auto) Seg Neutrophils % 70.3 H Seg Neuts % (Manual) Baso # (Auto) Lymphocytes % (Manual) Monocytes % (Manual) Eosinophils % (Manual) Basophils % (Manual) Seg Neutrophils # 8.0 H Seg Neutrophils # Man Lymphocytes # (Manual) Monocytes # (Manual) Eosinophils # (Manual) Nucleated RBC % Basophils # (Manual) PT INR APTT Heparin Anti-Xa Level ABG pH POC ABG pO2 ABG pO2 ABG HCO3 ABG O2 Saturation ABG Base Excess POC ABG pCO2 ABG Hemoglobin ABG Oxyhemoglobin ABG Glucose Oxyhemoglobin Sodium Potassium Chloride Carbon Dioxide BUN Creatinine Glucose POC Glucose 143 H 107 H Lactic Acid Calcium Phosphorus Magnesium AST ALT Lactate Dehydrogenase Total Bilirubin CK-MB (CK-2) C-Reactive Protein NT-Pro-B Natriuret Pep Total Protein Albumin Arterial Blood Glucose Urine WBC (Auto) Urine Creatinine 12/02/19 12/02/19 12/02/19 05:16 06:03 11:52 WBC RBC Hgb Hct MCHC RDW MCV MCH Lymph % (Auto) [place] % (Auto) [place] # Eos # Lymph # (Auto) [place] # (Auto) Eos # (Auto) Seg Neutrophils % Seg Neuts % (Manual) Baso # (Auto) Lymphocytes % (Manual) Monocytes % (Manual) Eosinophils % (Manual) Basophils % (Manual) Seg Neutrophils # Seg Neutrophils # Man Lymphocytes # (Manual) Monocytes # (Manual) Eosinophils # (Manual) Nucleated RBC % Basophils # (Manual) PT INR APTT Heparin Anti-Xa Level ABG pH POC ABG pO2 ABG pO2 ABG HCO3 ABG O2 Saturation ABG Base Excess POC ABG pCO2 ABG Hemoglobin ABG Oxyhemoglobin ABG Glucose Oxyhemoglobin Sodium 146 H Potassium Chloride Carbon Dioxide BUN 28 H Creatinine Glucose 123 H POC Glucose 110 H 152 H Lactic Acid Calcium Phosphorus Magnesium AST ALT Lactate Dehydrogenase Total Bilirubin CK-MB (CK-2) C-Reactive Protein NT-Pro-B Natriuret Pep Total Protein Albumin Arterial Blood Glucose Urine WBC (Auto) Urine Creatinine 12/02/19 12/02/19 12/02/19 12:58 17:58 23:36 WBC RBC Hgb Hct MCHC RDW MCV MCH Lymph % (Auto) [place] % (Auto) [place] # Eos # Lymph # (Auto) [place] # (Auto) Eos # (Auto) Seg Neutrophils % Seg Neuts % (Manual) Baso # (Auto) Lymphocytes % (Manual) Monocytes % (Manual) Eosinophils % (Manual) Basophils % (Manual) Seg Neutrophils # Seg Neutrophils # Man Lymphocytes # (Manual) Monocytes # (Manual) Eosinophils # (Manual) Nucleated RBC % Basophils # (Manual) PT INR APTT Heparin Anti-Xa Level ABG pH POC ABG pO2 78.1 L ABG pO2 ABG HCO3 ABG O2 Saturation ABG Base Excess POC ABG pCO2 ABG Hemoglobin ABG Oxyhemoglobin ABG Glucose Oxyhemoglobin Sodium Potassium Chloride Carbon Dioxide BUN Creatinine Glucose POC Glucose 120 H 123 H Lactic Acid Calcium Phosphorus Magnesium AST ALT Lactate Dehydrogenase Total Bilirubin CK-MB (CK-2) C-Reactive Protein NT-Pro-B Natriuret Pep Total Protein Albumin Arterial Blood Glucose Urine WBC (Auto) Urine Creatinine 12/03/19 12/03/19 12/03/19 06:03 06:14 11:46 WBC RBC Hgb Hct MCHC RDW MCV MCH Lymph % (Auto) [place] % (Auto) [place] # Eos # Lymph # (Auto) [place] # (Auto) Eos # (Auto) Seg Neutrophils % Seg Neuts % (Manual) Baso # (Auto) Lymphocytes % (Manual) Monocytes % (Manual) Eosinophils % (Manual) Basophils % (Manual) Seg Neutrophils # Seg Neutrophils # Man Lymphocytes # (Manual) Monocytes # (Manual) Eosinophils # (Manual) Nucleated RBC % Basophils # (Manual) PT INR APTT Heparin Anti-Xa Level ABG pH POC ABG pO2 ABG pO2 ABG HCO3 ABG O2 Saturation ABG Base Excess POC ABG pCO2 ABG Hemoglobin ABG Oxyhemoglobin ABG Glucose Oxyhemoglobin Sodium Potassium Chloride Carbon Dioxide BUN Creatinine Glucose POC Glucose 142 H 130 H Lactic Acid Calcium Phosphorus Magnesium AST ALT Lactate Dehydrogenase Total Bilirubin CK-MB (CK-2) C-Reactive Protein NT-Pro-B Natriuret Pep Total Protein Albumin Arterial Blood Glucose Urine WBC (Auto) 8.0 H Urine Creatinine 12/03/19 12/03/19 12/04/19 15:50 17:39 00:04 WBC RBC Hgb Hct MCHC RDW MCV MCH Lymph % (Auto) [place] % (Auto) [place] # Eos # Lymph # (Auto) [place] # (Auto) Eos # (Auto) Seg Neutrophils % Seg Neuts % (Manual) Baso # (Auto) Lymphocytes % (Manual) Monocytes % (Manual) Eosinophils % (Manual) Basophils % (Manual) Seg Neutrophils # Seg Neutrophils # Man Lymphocytes # (Manual) Monocytes # (Manual) Eosinophils # (Manual) Nucleated RBC % Basophils # (Manual) PT INR APTT Heparin Anti-Xa Level ABG pH POC ABG pO2 ABG pO2 ABG HCO3 ABG O2 Saturation ABG Base Excess POC ABG pCO2 ABG Hemoglobin ABG Oxyhemoglobin ABG Glucose Oxyhemoglobin Sodium Potassium Chloride Carbon Dioxide BUN Creatinine Glucose POC Glucose 146 H 133 H Lactic Acid Calcium Phosphorus 2.40 L Magnesium AST ALT Lactate Dehydrogenase Total Bilirubin CK-MB (CK-2) C-Reactive Protein NT-Pro-B Natriuret Pep Total Protein Albumin Arterial Blood Glucose Urine WBC (Auto) Urine Creatinine 12/04/19 12/04/19 12/04/19 03:58 03:58 05:22 WBC 12.5 H RBC Hgb 11.2 L Hct 35.2 L MCHC RDW 16.0 H MCV MCH Lymph % (Auto) [place] % (Auto) 9.6 H [place] # 1.2 H Eos # 0.5 H Lymph # (Auto) [place] # (Auto) Eos # (Auto) Seg Neutrophils % Seg Neuts % (Manual) Baso # (Auto) Lymphocytes % (Manual) Monocytes % (Manual) Eosinophils % (Manual) Basophils % (Manual) Seg Neutrophils # 8.6 H Seg Neutrophils # Man Lymphocytes # (Manual) Monocytes # (Manual) Eosinophils # (Manual) Nucleated RBC % Basophils # (Manual) PT INR APTT Heparin Anti-Xa Level ABG pH POC ABG pO2 ABG pO2 ABG HCO3 ABG O2 Saturation ABG Base Excess POC ABG pCO2 ABG Hemoglobin ABG Oxyhemoglobin ABG Glucose Oxyhemoglobin Sodium 146 H Potassium Chloride 108.6 H Carbon Dioxide BUN 30 H Creatinine 0.7 L Glucose 121 H POC Glucose 132 H Lactic Acid Calcium Phosphorus Magnesium AST ALT Lactate Dehydrogenase Total Bilirubin CK-MB (CK-2) C-Reactive Protein NT-Pro-B Natriuret Pep Total Protein Albumin Arterial Blood Glucose Urine WBC (Auto) Urine Creatinine 12/04/19 12/04/19 12/05/19 13:26 18:43 00:19 WBC RBC Hgb Hct MCHC RDW MCV MCH Lymph % (Auto) [place] % (Auto) [place] # Eos # Lymph # (Auto) [place] # (Auto) Eos # (Auto) Seg Neutrophils % Seg Neuts % (Manual) Baso # (Auto) Lymphocytes % (Manual) Monocytes % (Manual) Eosinophils % (Manual) Basophils % (Manual) Seg Neutrophils # Seg Neutrophils # Man Lymphocytes # (Manual) Monocytes # (Manual) Eosinophils # (Manual) Nucleated RBC % Basophils # (Manual) PT INR APTT Heparin Anti-Xa Level ABG pH POC ABG pO2 ABG pO2 ABG HCO3 ABG O2 Saturation ABG Base Excess POC ABG pCO2 ABG Hemoglobin ABG Oxyhemoglobin ABG Glucose Oxyhemoglobin Sodium Potassium Chloride Carbon Dioxide BUN Creatinine Glucose POC Glucose 185 H 156 H 150 H Lactic Acid Calcium Phosphorus Magnesium AST ALT Lactate Dehydrogenase Total Bilirubin CK-MB (CK-2) C-Reactive Protein NT-Pro-B Natriuret Pep Total Protein Albumin Arterial Blood Glucose Urine WBC (Auto) Urine Creatinine 12/05/19 12/05/19 12/05/19 03:37 03:37 05:14 WBC 16.3 H RBC Hgb 11.4 L Hct MCHC RDW 15.6 H MCV MCH Lymph % (Auto) 9.9 L [place] % (Auto) 9.7 H [place] # 1.6 H Eos # Lymph # (Auto) [place] # (Auto) Eos # (Auto) Seg Neutrophils % 78.0 H Seg Neuts % (Manual) Baso # (Auto) Lymphocytes % (Manual) Monocytes % (Manual) Eosinophils % (Manual) Basophils % (Manual) Seg Neutrophils # 12.7 H Seg Neutrophils # Man Lymphocytes # (Manual) Monocytes # (Manual) Eosinophils # (Manual) Nucleated RBC % Basophils # (Manual) PT INR APTT Heparin Anti-Xa Level ABG pH POC ABG pO2 ABG pO2 ABG HCO3 ABG O2 Saturation ABG Base Excess POC ABG pCO2 ABG Hemoglobin ABG Oxyhemoglobin ABG Glucose Oxyhemoglobin Sodium 146 H Potassium Chloride 107.2 H Carbon Dioxide BUN 27 H Creatinine 0.7 L Glucose 171 H POC Glucose 168 H Lactic Acid Calcium Phosphorus Magnesium AST ALT Lactate Dehydrogenase Total Bilirubin CK-MB (CK-2) C-Reactive Protein NT-Pro-B Natriuret Pep Total Protein Albumin Arterial Blood Glucose Urine WBC (Auto) Urine Creatinine 12/05/19 12/05/19 12/05/19 12:31 18:10 23:58 WBC RBC Hgb Hct MCHC RDW MCV MCH Lymph % (Auto) [place] % (Auto) [place] # Eos # Lymph # (Auto) [place] # (Auto) Eos # (Auto) Seg Neutrophils % Seg Neuts % (Manual) Baso # (Auto) Lymphocytes % (Manual) Monocytes % (Manual) Eosinophils % (Manual) Basophils % (Manual) Seg Neutrophils # Seg Neutrophils # Man Lymphocytes # (Manual) Monocytes # (Manual) Eosinophils # (Manual) Nucleated RBC % Basophils # (Manual) PT INR APTT Heparin Anti-Xa Level ABG pH POC ABG pO2 ABG pO2 ABG HCO3 ABG O2 Saturation ABG Base Excess POC ABG pCO2 ABG Hemoglobin ABG Oxyhemoglobin ABG Glucose Oxyhemoglobin Sodium Potassium Chloride Carbon Dioxide BUN Creatinine Glucose POC Glucose 159 H 198 H 115 H Lactic Acid Calcium Phosphorus Magnesium AST ALT Lactate Dehydrogenase Total Bilirubin CK-MB (CK-2) C-Reactive Protein NT-Pro-B Natriuret Pep Total Protein Albumin Arterial Blood Glucose Urine WBC (Auto) Urine Creatinine 12/06/19 12/06/19 12/06/19 05:24 05:24 05:25 WBC 14.9 H RBC Hgb 10.8 L Hct 34.0 L MCHC RDW 15.6 H MCV MCH Lymph % (Auto) 10.7 L [place] % (Auto) 8.3 H [place] # 1.2 H Eos # Lymph # (Auto) [place] # (Auto) Eos # (Auto) Seg Neutrophils % 78.7 H Seg Neuts % (Manual) Baso # (Auto) Lymphocytes % (Manual) Monocytes % (Manual) Eosinophils % (Manual) Basophils % (Manual) Seg Neutrophils # 11.7 H Seg Neutrophils # Man Lymphocytes # (Manual) Monocytes # (Manual) Eosinophils # (Manual) Nucleated RBC % Basophils # (Manual) PT INR APTT Heparin Anti-Xa Level ABG pH POC ABG pO2 ABG pO2 ABG HCO3 ABG O2 Saturation ABG Base Excess POC ABG pCO2 ABG Hemoglobin ABG Oxyhemoglobin ABG Glucose Oxyhemoglobin Sodium 148 H Potassium 5.1 H Chloride 107.6 H Carbon Dioxide BUN 27 H Creatinine 0.7 L Glucose 155 H POC Glucose 157 H Lactic Acid Calcium Phosphorus Magnesium AST ALT Lactate Dehydrogenase Total Bilirubin CK-MB (CK-2) C-Reactive Protein NT-Pro-B Natriuret Pep Total Protein Albumin Arterial Blood Glucose Urine WBC (Auto) Urine Creatinine 12/07/19 12/07/19 12/07/19 00:13 05:34 11:33 WBC RBC Hgb Hct MCHC RDW MCV MCH Lymph % (Auto) [place] % (Auto) [place] # Eos # Lymph # (Auto) [place] # (Auto) Eos # (Auto) Seg Neutrophils % Seg Neuts % (Manual) Baso # (Auto) Lymphocytes % (Manual) Monocytes % (Manual) Eosinophils % (Manual) Basophils % (Manual) Seg Neutrophils # Seg Neutrophils # Man Lymphocytes # (Manual) Monocytes # (Manual) Eosinophils # (Manual) Nucleated RBC % Basophils # (Manual) PT INR APTT Heparin Anti-Xa Level ABG pH POC ABG pO2 ABG pO2 ABG HCO3 ABG O2 Saturation ABG Base Excess POC ABG pCO2 ABG Hemoglobin ABG Oxyhemoglobin ABG Glucose Oxyhemoglobin Sodium Potassium Chloride Carbon Dioxide BUN Creatinine Glucose POC Glucose 142 H 111 H 169 H Lactic Acid Calcium Phosphorus Magnesium AST ALT Lactate Dehydrogenase Total Bilirubin CK-MB (CK-2) C-Reactive Protein NT-Pro-B Natriuret Pep Total Protein Albumin Arterial Blood Glucose Urine WBC (Auto) Urine Creatinine 12/07/19 12/07/19 12/07/19 12:41 13:25 18:19 WBC 12.4 H RBC 3.53 L Hgb 10.2 L Hct 32.1 L MCHC RDW 15.3 H MCV MCH Lymph % (Auto) 10.6 L [place] % (Auto) 7.8 H [place] # 1.0 H Eos # Lymph # (Auto) [place] # (Auto) Eos # (Auto) Seg Neutrophils % 77.6 H Seg Neuts % (Manual) Baso # (Auto) Lymphocytes % (Manual) Monocytes % (Manual) Eosinophils % (Manual) Basophils % (Manual) Seg Neutrophils # 9.6 H Seg Neutrophils # Man Lymphocytes # (Manual) Monocytes # (Manual) Eosinophils # (Manual) Nucleated RBC % Basophils # (Manual) PT INR APTT Heparin Anti-Xa Level ABG pH POC ABG pO2 ABG pO2 ABG HCO3 ABG O2 Saturation ABG Base Excess POC ABG pCO2 ABG Hemoglobin ABG Oxyhemoglobin ABG Glucose Oxyhemoglobin Sodium 149 H Potassium Chloride 108.4 H Carbon Dioxide BUN 26 H Creatinine 0.6 L Glucose 149 H POC Glucose 164 H Lactic Acid Calcium Phosphorus Magnesium 2.60 H AST 121 H ALT 145 H Lactate Dehydrogenase Total Bilirubin CK-MB (CK-2) C-Reactive Protein NT-Pro-B Natriuret Pep Total Protein Albumin 2.6 L Arterial Blood Glucose Urine WBC (Auto) Urine Creatinine 12/07/19 12/08/19 12/08/19 22:25 00:02 03:55 WBC 13.3 H RBC 3.40 L Hgb 9.7 L Hct 30.8 L MCHC 31 L RDW 15.5 H MCV MCH Lymph % (Auto) [place] % (Auto) 8.1 H [place] # 1.1 H Eos # Lymph # (Auto) [place] # (Auto) Eos # (Auto) Seg Neutrophils % 73.0 H Seg Neuts % (Manual) Baso # (Auto) Lymphocytes % (Manual) Monocytes % (Manual) Eosinophils % (Manual) Basophils % (Manual) Seg Neutrophils # 9.7 H Seg Neutrophils # Man Lymphocytes # (Manual) Monocytes # (Manual) Eosinophils # (Manual) Nucleated RBC % Basophils # (Manual) PT INR APTT Heparin Anti-Xa Level 0.12 L ABG pH POC ABG pO2 ABG pO2 ABG HCO3 ABG O2 Saturation ABG Base Excess POC ABG pCO2 ABG Hemoglobin ABG Oxyhemoglobin ABG Glucose Oxyhemoglobin Sodium Potassium Chloride Carbon Dioxide BUN Creatinine Glucose POC Glucose 151 H Lactic Acid Calcium Phosphorus Magnesium AST ALT Lactate Dehydrogenase Total Bilirubin CK-MB (CK-2) C-Reactive Protein NT-Pro-B Natriuret Pep Total Protein Albumin Arterial Blood Glucose Urine WBC (Auto) Urine Creatinine 12/08/19 12/08/19 12/08/19 03:55 05:21 06:01 WBC RBC Hgb Hct MCHC RDW MCV MCH Lymph % (Auto) [place] % (Auto) [place] # Eos # Lymph # (Auto) [place] # (Auto) Eos # (Auto) Seg Neutrophils % Seg Neuts % (Manual) Baso # (Auto) Lymphocytes % (Manual) Monocytes % (Manual) Eosinophils % (Manual) Basophils % (Manual) Seg Neutrophils # Seg Neutrophils # Man Lymphocytes # (Manual) Monocytes # (Manual) Eosinophils # (Manual) Nucleated RBC % Basophils # (Manual) PT INR APTT Heparin Anti-Xa Level 0.20 L ABG pH POC ABG pO2 ABG pO2 ABG HCO3 ABG O2 Saturation ABG Base Excess POC ABG pCO2 ABG Hemoglobin ABG Oxyhemoglobin ABG Glucose Oxyhemoglobin Sodium 149 H Potassium Chloride 108.0 H Carbon Dioxide BUN 28 H Creatinine 0.6 L Glucose 144 H POC Glucose 143 H Lactic Acid Calcium Phosphorus Magnesium AST 98 H ALT 145 H Lactate Dehydrogenase Total Bilirubin CK-MB (CK-2) C-Reactive Protein NT-Pro-B Natriuret Pep Total Protein 6.0 L Albumin 2.4 L Arterial Blood Glucose Urine WBC (Auto) Urine Creatinine 12/08/19 12/08/19 12/08/19 12:08 18:11 23:53 WBC RBC Hgb Hct MCHC RDW MCV MCH Lymph % (Auto) [place] % (Auto) [place] # Eos # Lymph # (Auto) [place] # (Auto) Eos # (Auto) Seg Neutrophils % Seg Neuts % (Manual) Baso # (Auto) Lymphocytes % (Manual) Monocytes % (Manual) Eosinophils % (Manual) Basophils % (Manual) Seg Neutrophils # Seg Neutrophils # Man Lymphocytes # (Manual) Monocytes # (Manual) Eosinophils # (Manual) Nucleated RBC % Basophils # (Manual) PT INR APTT Heparin Anti-Xa Level ABG pH POC ABG pO2 ABG pO2 ABG HCO3 ABG O2 Saturation ABG Base Excess POC ABG pCO2 ABG Hemoglobin ABG Oxyhemoglobin ABG Glucose Oxyhemoglobin Sodium Potassium Chloride Carbon Dioxide BUN Creatinine Glucose POC Glucose 172 H 122 H 162 H Lactic Acid Calcium Phosphorus Magnesium AST ALT Lactate Dehydrogenase Total Bilirubin CK-MB (CK-2) C-Reactive Protein NT-Pro-B Natriuret Pep Total Protein Albumin Arterial Blood Glucose Urine WBC (Auto) Urine Creatinine 12/09/19 12/09/19 12/09/19 04:03 04:03 05:53 WBC RBC Hgb 9.1 L Hct 28.9 L MCHC RDW MCV MCH Lymph % (Auto) [place] % (Auto) [place] # Eos # Lymph # (Auto) [place] # (Auto) Eos # (Auto) Seg Neutrophils % Seg Neuts % (Manual) Baso # (Auto) Lymphocytes % (Manual) Monocytes % (Manual) Eosinophils % (Manual) Basophils % (Manual) Seg Neutrophils # Seg Neutrophils # Man Lymphocytes # (Manual) Monocytes # (Manual) Eosinophils # (Manual) Nucleated RBC % Basophils # (Manual) PT INR APTT Heparin Anti-Xa Level 0.15 L ABG pH POC ABG pO2 ABG pO2 ABG HCO3 ABG O2 Saturation ABG Base Excess POC ABG pCO2 ABG Hemoglobin ABG Oxyhemoglobin ABG Glucose Oxyhemoglobin Sodium Potassium Chloride Carbon Dioxide BUN Creatinine Glucose POC Glucose 124 H Lactic Acid Calcium Phosphorus Magnesium AST ALT Lactate Dehydrogenase Total Bilirubin CK-MB (CK-2) C-Reactive Protein NT-Pro-B Natriuret Pep Total Protein Albumin Arterial Blood Glucose Urine WBC (Auto) Urine Creatinine 12/09/19 12/09/19 12/10/19 09:43 12:41 00:13 WBC RBC Hgb Hct MCHC RDW MCV MCH Lymph % (Auto) [place] % (Auto) [place] # Eos # Lymph # (Auto) [place] # (Auto) Eos # (Auto) Seg Neutrophils % Seg Neuts % (Manual) Baso # (Auto) Lymphocytes % (Manual) Monocytes % (Manual) Eosinophils % (Manual) Basophils % (Manual) Seg Neutrophils # Seg Neutrophils # Man Lymphocytes # (Manual) Monocytes # (Manual) Eosinophils # (Manual) Nucleated RBC % Basophils # (Manual) PT INR APTT Heparin Anti-Xa Level ABG pH POC ABG pO2 ABG pO2 ABG HCO3 ABG O2 Saturation ABG Base Excess POC ABG pCO2 ABG Hemoglobin ABG Oxyhemoglobin ABG Glucose Oxyhemoglobin Sodium Potassium Chloride Carbon Dioxide BUN 25 H Creatinine 0.6 L Glucose 131 H POC Glucose 109 H 120 H Lactic Acid Calcium Phosphorus Magnesium AST ALT Lactate Dehydrogenase Total Bilirubin CK-MB (CK-2) C-Reactive Protein NT-Pro-B Natriuret Pep Total Protein Albumin Arterial Blood Glucose Urine WBC (Auto) Urine Creatinine 12/10/19 12/10/19 12/10/19 04:14 04:14 12:00 WBC 13.3 H RBC 3.34 L Hgb 9.6 L Hct 30.4 L MCHC RDW 15.4 H MCV MCH Lymph % (Auto) [place] % (Auto) [place] # Eos # Lymph # (Auto) [place] # (Auto) Eos # (Auto) Seg Neutrophils % Seg Neuts % (Manual) 75.0 H Baso # (Auto) Lymphocytes % (Manual) 13.0 L Monocytes % (Manual) 8.0 H Eosinophils % (Manual) Basophils % (Manual) 2.0 H Seg Neutrophils # Seg Neutrophils # Man 10.0 H Lymphocytes # (Manual) Monocytes # (Manual) 1.1 H Eosinophils # (Manual) Nucleated RBC % Basophils # (Manual) 0.3 H PT INR APTT Heparin Anti-Xa Level ABG pH POC ABG pO2 ABG pO2 ABG HCO3 ABG O2 Saturation ABG Base Excess POC ABG pCO2 ABG Hemoglobin ABG Oxyhemoglobin ABG Glucose Oxyhemoglobin Sodium 147 H Potassium Chloride 108.3 H Carbon Dioxide BUN 21 H Creatinine 0.6 L Glucose 104 H POC Glucose 133 H Lactic Acid Calcium Phosphorus Magnesium AST ALT Lactate Dehydrogenase Total Bilirubin CK-MB (CK-2) C-Reactive Protein NT-Pro-B Natriuret Pep Total Protein Albumin Arterial Blood Glucose Urine WBC (Auto) Urine Creatinine 12/10/19 12/10/19 12/11/19 18:44 21:20 00:08 WBC 14.9 H RBC 3.36 L Hgb 9.6 L Hct 30.5 L MCHC RDW 15.4 H MCV MCH Lymph % (Auto) [place] % (Auto) [place] # Eos # Lymph # (Auto) [place] # (Auto) Eos # (Auto) Seg Neutrophils % Seg Neuts % (Manual) Baso # (Auto) Lymphocytes % (Manual) Monocytes % (Manual) Eosinophils % (Manual) Basophils % (Manual) Seg Neutrophils # Seg Neutrophils # Man Lymphocytes # (Manual) Monocytes # (Manual) Eosinophils # (Manual) Nucleated RBC % Basophils # (Manual) PT INR APTT Heparin Anti-Xa Level ABG pH POC ABG pO2 ABG pO2 ABG HCO3 ABG O2 Saturation ABG Base Excess POC ABG pCO2 ABG Hemoglobin ABG Oxyhemoglobin ABG Glucose Oxyhemoglobin Sodium Potassium Chloride Carbon Dioxide BUN Creatinine Glucose POC Glucose 119 H 134 H Lactic Acid Calcium Phosphorus Magnesium AST ALT Lactate Dehydrogenase Total Bilirubin CK-MB (CK-2) C-Reactive Protein NT-Pro-B Natriuret Pep Total Protein Albumin Arterial Blood Glucose Urine WBC (Auto) Urine Creatinine 12/11/19 12/11/19 12/11/19 03:54 07:28 08:36 WBC 11.9 H RBC 3.25 L Hgb 9.6 L Hct 29.2 L MCHC RDW 15.7 H MCV MCH Lymph % (Auto) [place] % (Auto) [place] # Eos # Lymph # (Auto) [place] # (Auto) Eos # (Auto) Seg Neutrophils % Seg Neuts % (Manual) Baso # (Auto) Lymphocytes % (Manual) Monocytes % (Manual) Eosinophils % (Manual) Basophils % (Manual) Seg Neutrophils # Seg Neutrophils # Man Lymphocytes # (Manual) Monocytes # (Manual) Eosinophils # (Manual) Nucleated RBC % Basophils # (Manual) PT INR APTT Heparin Anti-Xa Level 0.10 L 0.16 L ABG pH POC ABG pO2 ABG pO2 ABG HCO3 ABG O2 Saturation ABG Base Excess POC ABG pCO2 ABG Hemoglobin ABG Oxyhemoglobin ABG Glucose Oxyhemoglobin Sodium Potassium Chloride Carbon Dioxide BUN Creatinine Glucose POC Glucose Lactic Acid Calcium Phosphorus Magnesium AST ALT Lactate Dehydrogenase Total Bilirubin CK-MB (CK-2) C-Reactive Protein NT-Pro-B Natriuret Pep Total Protein Albumin Arterial Blood Glucose Urine WBC (Auto) Urine Creatinine 12/11/19 12/11/19 12/11/19 08:36 11:45 17:15 WBC RBC Hgb Hct MCHC RDW MCV MCH Lymph % (Auto) [place] % (Auto) [place] # Eos # Lymph # (Auto) [place] # (Auto) Eos # (Auto) Seg Neutrophils % Seg Neuts % (Manual) Baso # (Auto) Lymphocytes % (Manual) Monocytes % (Manual) Eosinophils % (Manual) Basophils % (Manual) Seg Neutrophils # Seg Neutrophils # Man Lymphocytes # (Manual) Monocytes # (Manual) Eosinophils # (Manual) Nucleated RBC % Basophils # (Manual) PT INR APTT Heparin Anti-Xa Level ABG pH POC ABG pO2 ABG pO2 ABG HCO3 ABG O2 Saturation ABG Base Excess POC ABG pCO2 ABG Hemoglobin ABG Oxyhemoglobin ABG Glucose Oxyhemoglobin Sodium Potassium Chloride Carbon Dioxide BUN Creatinine 0.5 L Glucose 128 H POC Glucose 136 H 109 H Lactic Acid Calcium Phosphorus Magnesium AST ALT Lactate Dehydrogenase Total Bilirubin CK-MB (CK-2) C-Reactive Protein NT-Pro-B Natriuret Pep Total Protein Albumin Arterial Blood Glucose Urine WBC (Auto) Urine Creatinine 12/12/19 12/12/19 12/12/19 00:03 05:53 05:53 WBC RBC Hgb 8.8 L Hct 27.6 L MCHC RDW MCV MCH Lymph % (Auto) [place] % (Auto) [place] # Eos # Lymph # (Auto) [place] # (Auto) Eos # (Auto) Seg Neutrophils % Seg Neuts % (Manual) Baso # (Auto) Lymphocytes % (Manual) Monocytes % (Manual) Eosinophils % (Manual) Basophils % (Manual) Seg Neutrophils # Seg Neutrophils # Man Lymphocytes # (Manual) Monocytes # (Manual) Eosinophils # (Manual) Nucleated RBC % Basophils # (Manual) PT INR APTT Heparin Anti-Xa Level 0.22 L ABG pH POC ABG pO2 ABG pO2 ABG HCO3 ABG O2 Saturation ABG Base Excess POC ABG pCO2 ABG Hemoglobin ABG Oxyhemoglobin ABG Glucose Oxyhemoglobin Sodium Potassium Chloride Carbon Dioxide BUN Creatinine Glucose POC Glucose 116 H Lactic Acid Calcium Phosphorus Magnesium AST ALT Lactate Dehydrogenase Total Bilirubin CK-MB (CK-2) C-Reactive Protein NT-Pro-B Natriuret Pep Total Protein Albumin Arterial Blood Glucose Urine WBC (Auto) Urine Creatinine 12/12/19 12/12/19 12/12/19 09:38 12:18 17:44 WBC RBC Hgb Hct MCHC RDW MCV MCH Lymph % (Auto) [place] % (Auto) [place] # Eos # Lymph # (Auto) [place] # (Auto) Eos # (Auto) Seg Neutrophils % Seg Neuts % (Manual) Baso # (Auto) Lymphocytes % (Manual) Monocytes % (Manual) Eosinophils % (Manual) Basophils % (Manual) Seg Neutrophils # Seg Neutrophils # Man Lymphocytes # (Manual) Monocytes # (Manual) Eosinophils # (Manual) Nucleated RBC % Basophils # (Manual) PT INR APTT Heparin Anti-Xa Level ABG pH POC ABG pO2 ABG pO2 ABG HCO3 ABG O2 Saturation ABG Base Excess POC ABG pCO2 ABG Hemoglobin ABG Oxyhemoglobin ABG Glucose Oxyhemoglobin Sodium Potassium Chloride Carbon Dioxide BUN Creatinine Glucose POC Glucose 115 H 146 H 146 H Lactic Acid Calcium Phosphorus Magnesium AST ALT Lactate Dehydrogenase Total Bilirubin CK-MB (CK-2) C-Reactive Protein NT-Pro-B Natriuret Pep Total Protein Albumin Arterial Blood Glucose Urine WBC (Auto) Urine Creatinine 12/12/19 12/13/19 12/13/19 23:33 05:32 05:32 WBC 13.1 H RBC 3.27 L Hgb 9.5 L Hct 29.3 L MCHC RDW 15.6 H MCV MCH Lymph % (Auto) [place] % (Auto) [place] # Eos # Lymph # (Auto) [place] # (Auto) Eos # (Auto) Seg Neutrophils % Seg Neuts % (Manual) 74.0 H Baso # (Auto) Lymphocytes % (Manual) 8.0 L Monocytes % (Manual) 9.0 H Eosinophils % (Manual) 5.0 H Basophils % (Manual) Seg Neutrophils # Seg Neutrophils # Man 9.7 H Lymphocytes # (Manual) 1.0 L Monocytes # (Manual) 1.2 H Eosinophils # (Manual) 0.7 H Nucleated RBC % Basophils # (Manual) PT INR APTT Heparin Anti-Xa Level 0.20 L ABG pH POC ABG pO2 ABG pO2 ABG HCO3 ABG O2 Saturation ABG Base Excess POC ABG pCO2 ABG Hemoglobin ABG Oxyhemoglobin ABG Glucose Oxyhemoglobin Sodium Potassium Chloride Carbon Dioxide BUN Creatinine Glucose POC Glucose 126 H Lactic Acid Calcium Phosphorus Magnesium AST ALT Lactate Dehydrogenase Total Bilirubin CK-MB (CK-2) C-Reactive Protein NT-Pro-B Natriuret Pep Total Protein Albumin Arterial Blood Glucose Urine WBC (Auto) Urine Creatinine 12/13/19 12/13/19 12/13/19 05:32 05:46 11:57 WBC RBC Hgb Hct MCHC RDW MCV MCH Lymph % (Auto) [place] % (Auto) [place] # Eos # Lymph # (Auto) [place] # (Auto) Eos # (Auto) Seg Neutrophils % Seg Neuts % (Manual) Baso # (Auto) Lymphocytes % (Manual) Monocytes % (Manual) Eosinophils % (Manual) Basophils % (Manual) Seg Neutrophils # Seg Neutrophils # Man Lymphocytes # (Manual) Monocytes # (Manual) Eosinophils # (Manual) Nucleated RBC % Basophils # (Manual) PT INR APTT Heparin Anti-Xa Level ABG pH POC ABG pO2 ABG pO2 ABG HCO3 ABG O2 Saturation ABG Base Excess POC ABG pCO2 ABG Hemoglobin ABG Oxyhemoglobin ABG Glucose Oxyhemoglobin Sodium Potassium Chloride Carbon Dioxide 31 H BUN Creatinine 0.6 L Glucose 114 H POC Glucose 118 H 133 H Lactic Acid Calcium Phosphorus Magnesium AST ALT Lactate Dehydrogenase Total Bilirubin CK-MB (CK-2) C-Reactive Protein NT-Pro-B Natriuret Pep Total Protein Albumin Arterial Blood Glucose Urine WBC (Auto) Urine Creatinine 12/13/19 12/13/19 12/14/19 17:44 23:46 05:32 WBC RBC Hgb Hct MCHC RDW MCV MCH Lymph % (Auto) [place] % (Auto) [place] # Eos # Lymph # (Auto) [place] # (Auto) Eos # (Auto) Seg Neutrophils % Seg Neuts % (Manual) Baso # (Auto) Lymphocytes % (Manual) Monocytes % (Manual) Eosinophils % (Manual) Basophils % (Manual) Seg Neutrophils # Seg Neutrophils # Man Lymphocytes # (Manual) Monocytes # (Manual) Eosinophils # (Manual) Nucleated RBC % Basophils # (Manual) PT INR APTT Heparin Anti-Xa Level ABG pH POC ABG pO2 ABG pO2 ABG HCO3 ABG O2 Saturation ABG Base Excess POC ABG pCO2 ABG Hemoglobin ABG Oxyhemoglobin ABG Glucose Oxyhemoglobin Sodium Potassium Chloride Carbon Dioxide BUN Creatinine Glucose POC Glucose 161 H 126 H 139 H Lactic Acid Calcium Phosphorus Magnesium AST ALT Lactate Dehydrogenase Total Bilirubin CK-MB (CK-2) C-Reactive Protein NT-Pro-B Natriuret Pep Total Protein Albumin Arterial Blood Glucose Urine WBC (Auto) Urine Creatinine 12/14/19 12/14/19 12/14/19 06:03 06:03 09:37 WBC RBC Hgb 9.6 L Hct 30.4 L MCHC RDW MCV MCH Lymph % (Auto) [place] % (Auto) [place] # Eos # Lymph # (Auto) [place] # (Auto) Eos # (Auto) Seg Neutrophils % Seg Neuts % (Manual) Baso # (Auto) Lymphocytes % (Manual) Monocytes % (Manual) Eosinophils % (Manual) Basophils % (Manual) Seg Neutrophils # Seg Neutrophils # Man Lymphocytes # (Manual) Monocytes # (Manual) Eosinophils # (Manual) Nucleated RBC % Basophils # (Manual) PT INR APTT Heparin Anti-Xa Level 0.24 L ABG pH POC ABG pO2 ABG pO2 ABG HCO3 ABG O2 Saturation ABG Base Excess POC ABG pCO2 ABG Hemoglobin ABG Oxyhemoglobin ABG Glucose Oxyhemoglobin Sodium Potassium Chloride Carbon Dioxide BUN Creatinine 0.6 L Glucose 162 H POC Glucose Lactic Acid Calcium Phosphorus Magnesium AST 71 H ALT 118 H Lactate Dehydrogenase Total Bilirubin CK-MB (CK-2) C-Reactive Protein NT-Pro-B Natriuret Pep Total Protein 6.2 L Albumin 2.3 L Arterial Blood Glucose Urine WBC (Auto) Urine Creatinine 12/14/19 12/14/19 12/15/19 12:06 18:18 00:19 WBC RBC Hgb Hct MCHC RDW MCV MCH Lymph % (Auto) [place] % (Auto) [place] # Eos # Lymph # (Auto) [place] # (Auto) Eos # (Auto) Seg Neutrophils % Seg Neuts % (Manual) Baso # (Auto) Lymphocytes % (Manual) Monocytes % (Manual) Eosinophils % (Manual) Basophils % (Manual) Seg Neutrophils # Seg Neutrophils # Man Lymphocytes # (Manual) Monocytes # (Manual) Eosinophils # (Manual) Nucleated RBC % Basophils # (Manual) PT INR APTT Heparin Anti-Xa Level ABG pH POC ABG pO2 ABG pO2 ABG HCO3 ABG O2 Saturation ABG Base Excess POC ABG pCO2 ABG Hemoglobin ABG Oxyhemoglobin ABG Glucose Oxyhemoglobin Sodium Potassium Chloride Carbon Dioxide BUN Creatinine Glucose POC Glucose 147 H 166 H 123 H Lactic Acid Calcium Phosphorus Magnesium AST ALT Lactate Dehydrogenase Total Bilirubin CK-MB (CK-2) C-Reactive Protein NT-Pro-B Natriuret Pep Total Protein Albumin Arterial Blood Glucose Urine WBC (Auto) Urine Creatinine 12/15/19 12/15/19 12/15/19 05:28 05:29 05:29 WBC 14.9 H RBC 3.19 L Hgb 9.1 L Hct 28.7 L MCHC RDW 16.0 H MCV MCH Lymph % (Auto) [place] % (Auto) [place] # Eos # Lymph # (Auto) [place] # (Auto) Eos # (Auto) Seg Neutrophils % Seg Neuts % (Manual) Baso # (Auto) Lymphocytes % (Manual) Monocytes % (Manual) Eosinophils % (Manual) Basophils % (Manual) Seg Neutrophils # Seg Neutrophils # Man Lymphocytes # (Manual) Monocytes # (Manual) Eosinophils # (Manual) Nucleated RBC % Basophils # (Manual) PT INR APTT Heparin Anti-Xa Level 0.19 L ABG pH POC ABG pO2 ABG pO2 ABG HCO3 ABG O2 Saturation ABG Base Excess POC ABG pCO2 ABG Hemoglobin ABG Oxyhemoglobin ABG Glucose Oxyhemoglobin Sodium Potassium Chloride Carbon Dioxide BUN Creatinine 0.6 L Glucose 110 H POC Glucose Lactic Acid Calcium Phosphorus Magnesium AST ALT Lactate Dehydrogenase Total Bilirubin CK-MB (CK-2) C-Reactive Protein NT-Pro-B Natriuret Pep Total Protein Albumin Arterial Blood Glucose Urine WBC (Auto) Urine Creatinine 12/15/19 12/15/19 12/15/19 05:53 11:50 17:26 WBC RBC Hgb Hct MCHC RDW MCV MCH Lymph % (Auto) [place] % (Auto) [place] # Eos # Lymph # (Auto) [place] # (Auto) Eos # (Auto) Seg Neutrophils % Seg Neuts % (Manual) Baso # (Auto) Lymphocytes % (Manual) Monocytes % (Manual) Eosinophils % (Manual) Basophils % (Manual) Seg Neutrophils # Seg Neutrophils # Man Lymphocytes # (Manual) Monocytes # (Manual) Eosinophils # (Manual) Nucleated RBC % Basophils # (Manual) PT INR APTT Heparin Anti-Xa Level ABG pH POC ABG pO2 ABG pO2 ABG HCO3 ABG O2 Saturation ABG Base Excess POC ABG pCO2 ABG Hemoglobin ABG Oxyhemoglobin ABG Glucose Oxyhemoglobin Sodium Potassium Chloride Carbon Dioxide BUN Creatinine Glucose POC Glucose 119 H 132 H 128 H Lactic Acid Calcium Phosphorus Magnesium AST ALT Lactate Dehydrogenase Total Bilirubin CK-MB (CK-2) C-Reactive Protein NT-Pro-B Natriuret Pep Total Protein Albumin Arterial Blood Glucose Urine WBC (Auto) Urine Creatinine 12/15/19 12/16/19 12/16/19 23:11 05:30 05:46 WBC RBC Hgb 8.8 L Hct 27.9 L MCHC RDW MCV MCH Lymph % (Auto) [place] % (Auto) [place] # Eos # Lymph # (Auto) [place] # (Auto) Eos # (Auto) Seg Neutrophils % Seg Neuts % (Manual) Baso # (Auto) Lymphocytes % (Manual) Monocytes % (Manual) Eosinophils % (Manual) Basophils % (Manual) Seg Neutrophils # Seg Neutrophils # Man Lymphocytes # (Manual) Monocytes # (Manual) Eosinophils # (Manual) Nucleated RBC % Basophils # (Manual) PT INR APTT Heparin Anti-Xa Level ABG pH POC ABG pO2 ABG pO2 ABG HCO3 ABG O2 Saturation ABG Base Excess POC ABG pCO2 ABG Hemoglobin ABG Oxyhemoglobin ABG Glucose Oxyhemoglobin Sodium Potassium Chloride Carbon Dioxide BUN Creatinine Glucose POC Glucose 150 H 134 H Lactic Acid Calcium Phosphorus Magnesium AST ALT Lactate Dehydrogenase Total Bilirubin CK-MB (CK-2) C-Reactive Protein NT-Pro-B Natriuret Pep Total Protein Albumin Arterial Blood Glucose Urine WBC (Auto) Urine Creatinine 12/16/19 12/16/19 12/16/19 05:46 05:46 11:44 WBC RBC Hgb Hct MCHC RDW MCV MCH Lymph % (Auto) [place] % (Auto) [place] # Eos # Lymph # (Auto) [place] # (Auto) Eos # (Auto) Seg Neutrophils % Seg Neuts % (Manual) Baso # (Auto) Lymphocytes % (Manual) Monocytes % (Manual) Eosinophils % (Manual) Basophils % (Manual) Seg Neutrophils # Seg Neutrophils # Man Lymphocytes # (Manual) Monocytes # (Manual) Eosinophils # (Manual) Nucleated RBC % Basophils # (Manual) PT INR APTT Heparin Anti-Xa Level 0.20 L ABG pH POC ABG pO2 ABG pO2 ABG HCO3 ABG O2 Saturation ABG Base Excess POC ABG pCO2 ABG Hemoglobin ABG Oxyhemoglobin ABG Glucose Oxyhemoglobin Sodium Potassium Chloride Carbon Dioxide 31 H BUN Creatinine 0.5 L Glucose 147 H POC Glucose 164 H Lactic Acid Calcium Phosphorus Magnesium AST ALT Lactate Dehydrogenase Total Bilirubin CK-MB (CK-2) C-Reactive Protein NT-Pro-B Natriuret Pep Total Protein Albumin Arterial Blood Glucose Urine WBC (Auto) Urine Creatinine 12/16/19 12/16/19 12/17/19 17:17 23:49 05:30 WBC 13.9 H RBC 3.27 L Hgb 9.4 L Hct 29.2 L MCHC RDW 16.0 H MCV MCH Lymph % (Auto) [place] % (Auto) 8.8 H [place] # Eos # Lymph # (Auto) [place] # (Auto) 1.2 H Eos # (Auto) 0.5 H Seg Neutrophils % 70.5 H Seg Neuts % (Manual) Baso # (Auto) 0.2 H Lymphocytes % (Manual) Monocytes % (Manual) Eosinophils % (Manual) Basophils % (Manual) Seg Neutrophils # 9.8 H Seg Neutrophils # Man Lymphocytes # (Manual) Monocytes # (Manual) Eosinophils # (Manual) Nucleated RBC % Basophils # (Manual) PT INR APTT Heparin Anti-Xa Level ABG pH POC ABG pO2 ABG pO2 ABG HCO3 ABG O2 Saturation ABG Base Excess POC ABG pCO2 ABG Hemoglobin ABG Oxyhemoglobin ABG Glucose Oxyhemoglobin Sodium Potassium Chloride Carbon Dioxide BUN Creatinine Glucose POC Glucose 162 H 144 H Lactic Acid Calcium Phosphorus Magnesium AST ALT Lactate Dehydrogenase Total Bilirubin CK-MB (CK-2) C-Reactive Protein NT-Pro-B Natriuret Pep Total Protein Albumin Arterial Blood Glucose Urine WBC (Auto) Urine Creatinine 12/17/19 12/17/19 12/17/19 05:30 06:06 11:50 WBC RBC Hgb Hct MCHC RDW MCV MCH Lymph % (Auto) [place] % (Auto) [place] # Eos # Lymph # (Auto) [place] # (Auto) Eos # (Auto) Seg Neutrophils % Seg Neuts % (Manual) Baso # (Auto) Lymphocytes % (Manual) Monocytes % (Manual) Eosinophils % (Manual) Basophils % (Manual) Seg Neutrophils # Seg Neutrophils # Man Lymphocytes # (Manual) Monocytes # (Manual) Eosinophils # (Manual) Nucleated RBC % Basophils # (Manual) PT INR APTT Heparin Anti-Xa Level ABG pH POC ABG pO2 ABG pO2 ABG HCO3 ABG O2 Saturation ABG Base Excess POC ABG pCO2 ABG Hemoglobin ABG Oxyhemoglobin ABG Glucose Oxyhemoglobin Sodium Potassium Chloride 97.4 L Carbon Dioxide 32 H BUN Creatinine 0.5 L Glucose 135 H POC Glucose 151 H 140 H Lactic Acid Calcium Phosphorus Magnesium AST ALT Lactate Dehydrogenase Total Bilirubin CK-MB (CK-2) C-Reactive Protein NT-Pro-B Natriuret Pep Total Protein Albumin Arterial Blood Glucose Urine WBC (Auto) Urine Creatinine 12/17/19 12/17/19 12/18/19 17:50 23:46 05:17 WBC RBC Hgb 8.8 L Hct 28.0 L MCHC RDW MCV MCH Lymph % (Auto) [place] % (Auto) [place] # Eos # Lymph # (Auto) [place] # (Auto) Eos # (Auto) Seg Neutrophils % Seg Neuts % (Manual) Baso # (Auto) Lymphocytes % (Manual) Monocytes % (Manual) Eosinophils % (Manual) Basophils % (Manual) Seg Neutrophils # Seg Neutrophils # Man Lymphocytes # (Manual) Monocytes # (Manual) Eosinophils # (Manual) Nucleated RBC % Basophils # (Manual) PT INR APTT Heparin Anti-Xa Level ABG pH POC ABG pO2 ABG pO2 ABG HCO3 ABG O2 Saturation ABG Base Excess POC ABG pCO2 ABG Hemoglobin ABG Oxyhemoglobin ABG Glucose Oxyhemoglobin Sodium Potassium Chloride Carbon Dioxide BUN Creatinine Glucose POC Glucose 158 H 150 H Lactic Acid Calcium Phosphorus Magnesium AST ALT Lactate Dehydrogenase Total Bilirubin CK-MB (CK-2) C-Reactive Protein NT-Pro-B Natriuret Pep Total Protein Albumin Arterial Blood Glucose Urine WBC (Auto) Urine Creatinine 12/18/19 12/18/19 12/18/19 05:17 05:49 11:12 WBC RBC Hgb Hct MCHC RDW MCV MCH Lymph % (Auto) [place] % (Auto) [place] # Eos # Lymph # (Auto) [place] # (Auto) Eos # (Auto) Seg Neutrophils % Seg Neuts % (Manual) Baso # (Auto) Lymphocytes % (Manual) Monocytes % (Manual) Eosinophils % (Manual) Basophils % (Manual) Seg Neutrophils # Seg Neutrophils # Man Lymphocytes # (Manual) Monocytes # (Manual) Eosinophils # (Manual) Nucleated RBC % Basophils # (Manual) PT INR APTT Heparin Anti-Xa Level 0.16 L ABG pH POC ABG pO2 ABG pO2 ABG HCO3 ABG O2 Saturation ABG Base Excess POC ABG pCO2 ABG Hemoglobin ABG Oxyhemoglobin ABG Glucose Oxyhemoglobin Sodium Potassium Chloride Carbon Dioxide BUN Creatinine Glucose POC Glucose 127 H 191 H Lactic Acid Calcium Phosphorus Magnesium AST ALT Lactate Dehydrogenase Total Bilirubin CK-MB (CK-2) C-Reactive Protein NT-Pro-B Natriuret Pep Total Protein Albumin Arterial Blood Glucose Urine WBC (Auto) Urine Creatinine 12/18/19 12/18/19 12/19/19 17:03 20:16 00:08 WBC RBC Hgb Hct MCHC RDW MCV MCH Lymph % (Auto) [place] % (Auto) [place] # Eos # Lymph # (Auto) [place] # (Auto) Eos # (Auto) Seg Neutrophils % Seg Neuts % (Manual) Baso # (Auto) Lymphocytes % (Manual) Monocytes % (Manual) Eosinophils % (Manual) Basophils % (Manual) Seg Neutrophils # Seg Neutrophils # Man Lymphocytes # (Manual) Monocytes # (Manual) Eosinophils # (Manual) Nucleated RBC % Basophils # (Manual) PT INR APTT Heparin Anti-Xa Level ABG pH POC ABG pO2 ABG pO2 ABG HCO3 ABG O2 Saturation ABG Base Excess POC ABG pCO2 ABG Hemoglobin ABG Oxyhemoglobin ABG Glucose Oxyhemoglobin Sodium Potassium Chloride Carbon Dioxide BUN Creatinine Glucose POC Glucose 133 H 128 H 129 H Lactic Acid Calcium Phosphorus Magnesium AST ALT Lactate Dehydrogenase Total Bilirubin CK-MB (CK-2) C-Reactive Protein NT-Pro-B Natriuret Pep Total Protein Albumin Arterial Blood Glucose Urine WBC (Auto) Urine Creatinine 12/19/19 12/19/19 12/19/19 04:45 04:45 05:35 WBC RBC Hgb Hct MCHC RDW MCV MCH Lymph % (Auto) [place] % (Auto) [place] # Eos # Lymph # (Auto) [place] # (Auto) Eos # (Auto) Seg Neutrophils % Seg Neuts % (Manual) Baso # (Auto) Lymphocytes % (Manual) Monocytes % (Manual) Eosinophils % (Manual) Basophils % (Manual) Seg Neutrophils # Seg Neutrophils # Man Lymphocytes # (Manual) Monocytes # (Manual) Eosinophils # (Manual) Nucleated RBC % Basophils # (Manual) PT INR APTT Heparin Anti-Xa Level 0.17 L ABG pH POC ABG pO2 ABG pO2 ABG HCO3 ABG O2 Saturation ABG Base Excess POC ABG pCO2 ABG Hemoglobin ABG Oxyhemoglobin ABG Glucose Oxyhemoglobin Sodium Potassium Chloride Carbon Dioxide BUN Creatinine Glucose POC Glucose 120 H Lactic Acid Calcium Phosphorus Magnesium AST ALT Lactate Dehydrogenase 228 H Total Bilirubin CK-MB (CK-2) C-Reactive Protein NT-Pro-B Natriuret Pep Total Protein Albumin Arterial Blood Glucose Urine WBC (Auto) Urine Creatinine 12/19/19 12/19/19 12/19/19 09:20 11:32 11:32 WBC 14.6 H RBC 3.08 L Hgb 9.0 L Hct 26.8 L MCHC RDW 15.9 H MCV MCH Lymph % (Auto) [place] % (Auto) [place] # Eos # Lymph # (Auto) [place] # (Auto) Eos # (Auto) Seg Neutrophils % Seg Neuts % (Manual) 82.0 H Baso # (Auto) Lymphocytes % (Manual) 10.0 L Monocytes % (Manual) Eosinophils % (Manual) Basophils % (Manual) Seg Neutrophils # Seg Neutrophils # Man 12.0 H Lymphocytes # (Manual) Monocytes # (Manual) 0.9 H Eosinophils # (Manual) Nucleated RBC % 1.0 H Basophils # (Manual) PT INR APTT Heparin Anti-Xa Level ABG pH 7.451 H POC ABG pO2 ABG pO2 62.6 L ABG HCO3 33.2 H ABG O2 Saturation 93.8 L ABG Base Excess 8.3 H POC ABG pCO2 ABG Hemoglobin 8.3 L ABG Oxyhemoglobin ABG Glucose Oxyhemoglobin 91.9 L Sodium Potassium Chloride 95.0 L Carbon Dioxide 33 H BUN 22 H Creatinine 0.6 L Glucose 150 H POC Glucose Lactic Acid Calcium Phosphorus Magnesium AST ALT Lactate Dehydrogenase Total Bilirubin CK-MB (CK-2) C-Reactive Protein NT-Pro-B Natriuret Pep Total Protein 6.2 L Albumin 2.4 L Arterial Blood Glucose Urine WBC (Auto) Urine Creatinine 12/19/19 12/19/19 12/20/19 11:56 18:17 00:09 WBC RBC Hgb Hct MCHC RDW MCV MCH Lymph % (Auto) [place] % (Auto) [place] # Eos # Lymph # (Auto) [place] # (Auto) Eos # (Auto) Seg Neutrophils % Seg Neuts % (Manual) Baso # (Auto) Lymphocytes % (Manual) Monocytes % (Manual) Eosinophils % (Manual) Basophils % (Manual) Seg Neutrophils # Seg Neutrophils # Man Lymphocytes # (Manual) Monocytes # (Manual) Eosinophils # (Manual) Nucleated RBC % Basophils # (Manual) PT INR APTT Heparin Anti-Xa Level ABG pH POC ABG pO2 ABG pO2 ABG HCO3 ABG O2 Saturation ABG Base Excess POC ABG pCO2 ABG Hemoglobin ABG Oxyhemoglobin ABG Glucose Oxyhemoglobin Sodium Potassium Chloride Carbon Dioxide BUN Creatinine Glucose POC Glucose 156 H 156 H 155 H Lactic Acid Calcium Phosphorus Magnesium AST ALT Lactate Dehydrogenase Total Bilirubin CK-MB (CK-2) C-Reactive Protein NT-Pro-B Natriuret Pep Total Protein Albumin Arterial Blood Glucose Urine WBC (Auto) Urine Creatinine 12/20/19 12/20/19 12/20/19 05:26 06:02 18:17 WBC RBC Hgb Hct MCHC RDW MCV MCH Lymph % (Auto) [place] % (Auto) [place] # Eos # Lymph # (Auto) [place] # (Auto) Eos # (Auto) Seg Neutrophils % Seg Neuts % (Manual) Baso # (Auto) Lymphocytes % (Manual) Monocytes % (Manual) Eosinophils % (Manual) Basophils % (Manual) Seg Neutrophils # Seg Neutrophils # Man Lymphocytes # (Manual) Monocytes # (Manual) Eosinophils # (Manual) Nucleated RBC % Basophils # (Manual) PT INR APTT Heparin Anti-Xa Level 0.19 L ABG pH POC ABG pO2 ABG pO2 ABG HCO3 ABG O2 Saturation ABG Base Excess POC ABG pCO2 ABG Hemoglobin ABG Oxyhemoglobin ABG Glucose Oxyhemoglobin Sodium Potassium Chloride Carbon Dioxide BUN Creatinine Glucose POC Glucose 137 H 128 H Lactic Acid Calcium Phosphorus Magnesium AST ALT Lactate Dehydrogenase Total Bilirubin CK-MB (CK-2) C-Reactive Protein NT-Pro-B Natriuret Pep Total Protein Albumin Arterial Blood Glucose Urine WBC (Auto) Urine Creatinine 12/20/19 12/21/19 12/21/19 23:34 05:31 05:31 WBC 12.7 H RBC 3.09 L Hgb 8.9 L Hct 27.4 L MCHC RDW 15.8 H MCV MCH Lymph % (Auto) 12.1 L [place] % (Auto) 7.8 H [place] # Eos # Lymph # (Auto) [place] # (Auto) 1.0 H Eos # (Auto) Seg Neutrophils % 77.1 H Seg Neuts % (Manual) Baso # (Auto) Lymphocytes % (Manual) Monocytes % (Manual) Eosinophils % (Manual) Basophils % (Manual) Seg Neutrophils # 9.8 H Seg Neutrophils # Man Lymphocytes # (Manual) Monocytes # (Manual) Eosinophils # (Manual) Nucleated RBC % Basophils # (Manual) PT INR APTT Heparin Anti-Xa Level ABG pH POC ABG pO2 ABG pO2 ABG HCO3 ABG O2 Saturation ABG Base Excess POC ABG pCO2 ABG Hemoglobin ABG Oxyhemoglobin ABG Glucose Oxyhemoglobin Sodium Potassium Chloride 96.9 L Carbon Dioxide 37 H BUN 27 H Creatinine 0.7 L Glucose 140 H POC Glucose 145 H Lactic Acid Calcium Phosphorus Magnesium AST ALT Lactate Dehydrogenase Total Bilirubin CK-MB (CK-2) C-Reactive Protein NT-Pro-B Natriuret Pep Total Protein Albumin Arterial Blood Glucose Urine WBC (Auto) Urine Creatinine 12/21/19 12/21/19 12/21/19 05:38 10:13 11:51 WBC RBC Hgb Hct MCHC RDW MCV MCH Lymph % (Auto) [place] % (Auto) [place] # Eos # Lymph # (Auto) [place] # (Auto) Eos # (Auto) Seg Neutrophils % Seg Neuts % (Manual) Baso # (Auto) Lymphocytes % (Manual) Monocytes % (Manual) Eosinophils % (Manual) Basophils % (Manual) Seg Neutrophils # Seg Neutrophils # Man Lymphocytes # (Manual) Monocytes # (Manual) Eosinophils # (Manual) Nucleated RBC % Basophils # (Manual) PT INR APTT 23.9 L Heparin Anti-Xa Level < 0.10 L ABG pH POC ABG pO2 ABG pO2 ABG HCO3 ABG O2 Saturation ABG Base Excess POC ABG pCO2 ABG Hemoglobin ABG Oxyhemoglobin ABG Glucose Oxyhemoglobin Sodium Potassium Chloride Carbon Dioxide BUN Creatinine Glucose POC Glucose 151 H 145 H Lactic Acid Calcium Phosphorus Magnesium AST ALT Lactate Dehydrogenase Total Bilirubin CK-MB (CK-2) C-Reactive Protein NT-Pro-B Natriuret Pep Total Protein Albumin Arterial Blood Glucose Urine WBC (Auto) Urine Creatinine 12/21/19 12/22/19 12/22/19 17:16 00:01 01:33 WBC RBC Hgb Hct MCHC RDW MCV MCH Lymph % (Auto) [place] % (Auto) [place] # Eos # Lymph # (Auto) [place] # (Auto) Eos # (Auto) Seg Neutrophils % Seg Neuts % (Manual) Baso # (Auto) Lymphocytes % (Manual) Monocytes % (Manual) Eosinophils % (Manual) Basophils % (Manual) Seg Neutrophils # Seg Neutrophils # Man Lymphocytes # (Manual) Monocytes # (Manual) Eosinophils # (Manual) Nucleated RBC % Basophils # (Manual) PT INR APTT Heparin Anti-Xa Level 0.10 L ABG pH POC ABG pO2 ABG pO2 ABG HCO3 ABG O2 Saturation ABG Base Excess POC ABG pCO2 ABG Hemoglobin ABG Oxyhemoglobin ABG Glucose Oxyhemoglobin Sodium Potassium Chloride Carbon Dioxide BUN Creatinine Glucose POC Glucose 167 H 179 H Lactic Acid Calcium Phosphorus Magnesium AST ALT Lactate Dehydrogenase Total Bilirubin CK-MB (CK-2) C-Reactive Protein NT-Pro-B Natriuret Pep Total Protein Albumin Arterial Blood Glucose Urine WBC (Auto) Urine Creatinine 12/22/19 12/22/19 12/22/19 03:22 05:10 05:10 WBC 13.8 H RBC 3.20 L Hgb 8.9 L Hct 28.1 L MCHC RDW 15.9 H MCV MCH Lymph % (Auto) [place] % (Auto) [place] # Eos # Lymph # (Auto) [place] # (Auto) Eos # (Auto) Seg Neutrophils % Seg Neuts % (Manual) Baso # (Auto) Lymphocytes % (Manual) Monocytes % (Manual) Eosinophils % (Manual) Basophils % (Manual) Seg Neutrophils # Seg Neutrophils # Man Lymphocytes # (Manual) Monocytes # (Manual) Eosinophils # (Manual) Nucleated RBC % Basophils # (Manual) PT INR APTT Heparin Anti-Xa Level ABG pH POC ABG pO2 52.3 L ABG pO2 ABG HCO3 ABG O2 Saturation ABG Base Excess POC ABG pCO2 52.9 H ABG Hemoglobin 10.7 L ABG Oxyhemoglobin 84 L ABG Glucose Oxyhemoglobin Sodium Potassium Chloride 96.6 L Carbon Dioxide BUN 25 H Creatinine 0.7 L Glucose 129 H POC Glucose Lactic Acid Calcium Phosphorus Magnesium AST ALT Lactate Dehydrogenase Total Bilirubin CK-MB (CK-2) C-Reactive Protein NT-Pro-B Natriuret Pep Total Protein Albumin Arterial Blood Glucose Urine WBC (Auto) Urine Creatinine 12/22/19 12/22/19 12/22/19 05:18 12:32 12:43 WBC RBC Hgb Hct MCHC RDW MCV MCH Lymph % (Auto) [place] % (Auto) [place] # Eos # Lymph # (Auto) [place] # (Auto) Eos # (Auto) Seg Neutrophils % Seg Neuts % (Manual) Baso # (Auto) Lymphocytes % (Manual) Monocytes % (Manual) Eosinophils % (Manual) Basophils % (Manual) Seg Neutrophils # Seg Neutrophils # Man Lymphocytes # (Manual) Monocytes # (Manual) Eosinophils # (Manual) Nucleated RBC % Basophils # (Manual) PT INR APTT Heparin Anti-Xa Level 0.18 L ABG pH POC ABG pO2 ABG pO2 ABG HCO3 ABG O2 Saturation ABG Base Excess POC ABG pCO2 ABG Hemoglobin ABG Oxyhemoglobin ABG Glucose Oxyhemoglobin Sodium Potassium Chloride Carbon Dioxide BUN Creatinine Glucose POC Glucose 131 H 208 H Lactic Acid Calcium Phosphorus Magnesium AST ALT Lactate Dehydrogenase Total Bilirubin CK-MB (CK-2) C-Reactive Protein NT-Pro-B Natriuret Pep Total Protein Albumin Arterial Blood Glucose Urine WBC (Auto) Urine Creatinine 12/22/19 12/22/19 12/23/19 17:44 23:20 03:51 WBC 15.2 H RBC 3.43 L Hgb 9.6 L Hct 30.3 L MCHC RDW 15.9 H MCV MCH Lymph % (Auto) [place] % (Auto) [place] # Eos # Lymph # (Auto) [place] # (Auto) Eos # (Auto) Seg Neutrophils % Seg Neuts % (Manual) Baso # (Auto) Lymphocytes % (Manual) Monocytes % (Manual) Eosinophils % (Manual) Basophils % (Manual) Seg Neutrophils # Seg Neutrophils # Man Lymphocytes # (Manual) Monocytes # (Manual) Eosinophils # (Manual) Nucleated RBC % Basophils # (Manual) PT INR APTT Heparin Anti-Xa Level ABG pH POC ABG pO2 ABG pO2 ABG HCO3 ABG O2 Saturation ABG Base Excess POC ABG pCO2 ABG Hemoglobin ABG Oxyhemoglobin ABG Glucose Oxyhemoglobin Sodium Potassium Chloride Carbon Dioxide BUN Creatinine Glucose POC Glucose 209 H 119 H Lactic Acid Calcium Phosphorus Magnesium AST ALT Lactate Dehydrogenase Total Bilirubin CK-MB (CK-2) C-Reactive Protein NT-Pro-B Natriuret Pep Total Protein Albumin Arterial Blood Glucose Urine WBC (Auto) Urine Creatinine 12/23/19 12/23/19 12/23/19 03:51 05:31 12:09 WBC RBC Hgb Hct MCHC RDW MCV MCH Lymph % (Auto) [place] % (Auto) [place] # Eos # Lymph # (Auto) [place] # (Auto) Eos # (Auto) Seg Neutrophils % Seg Neuts % (Manual) Baso # (Auto) Lymphocytes % (Manual) Monocytes % (Manual) Eosinophils % (Manual) Basophils % (Manual) Seg Neutrophils # Seg Neutrophils # Man Lymphocytes # (Manual) Monocytes # (Manual) Eosinophils # (Manual) Nucleated RBC % Basophils # (Manual) PT INR APTT Heparin Anti-Xa Level ABG pH POC ABG pO2 ABG pO2 ABG HCO3 ABG O2 Saturation ABG Base Excess POC ABG pCO2 ABG Hemoglobin ABG Oxyhemoglobin ABG Glucose Oxyhemoglobin Sodium Potassium Chloride 97.2 L Carbon Dioxide 31 H BUN 23 H Creatinine 0.6 L Glucose 153 H POC Glucose 149 H 144 H Lactic Acid Calcium Phosphorus Magnesium AST ALT Lactate Dehydrogenase Total Bilirubin CK-MB (CK-2) C-Reactive Protein NT-Pro-B Natriuret Pep Total Protein Albumin Arterial Blood Glucose Urine WBC (Auto) Urine Creatinine 12/23/19 12/23/19 12/23/19 15:30 17:49 23:31 WBC RBC Hgb Hct MCHC RDW MCV MCH Lymph % (Auto) [place] % (Auto) [place] # Eos # Lymph # (Auto) [place] # (Auto) Eos # (Auto) Seg Neutrophils % Seg Neuts % (Manual) Baso # (Auto) Lymphocytes % (Manual) Monocytes % (Manual) Eosinophils % (Manual) Basophils % (Manual) Seg Neutrophils # Seg Neutrophils # Man Lymphocytes # (Manual) Monocytes # (Manual) Eosinophils # (Manual) Nucleated RBC % Basophils # (Manual) PT INR APTT Heparin Anti-Xa Level 0.21 L ABG pH POC ABG pO2 ABG pO2 ABG HCO3 ABG O2 Saturation ABG Base Excess POC ABG pCO2 ABG Hemoglobin ABG Oxyhemoglobin ABG Glucose Oxyhemoglobin Sodium Potassium Chloride Carbon Dioxide BUN Creatinine Glucose POC Glucose 192 H 151 H Lactic Acid Calcium Phosphorus Magnesium AST ALT Lactate Dehydrogenase Total Bilirubin CK-MB (CK-2) C-Reactive Protein NT-Pro-B Natriuret Pep Total Protein Albumin Arterial Blood Glucose Urine WBC (Auto) Urine Creatinine 12/24/19 12/24/19 12/24/19 05:34 12:13 16:50 WBC RBC Hgb Hct MCHC RDW MCV MCH Lymph % (Auto) [place] % (Auto) [place] # Eos # Lymph # (Auto) [place] # (Auto) Eos # (Auto) Seg Neutrophils % Seg Neuts % (Manual) Baso # (Auto) Lymphocytes % (Manual) Monocytes % (Manual) Eosinophils % (Manual) Basophils % (Manual) Seg Neutrophils # Seg Neutrophils # Man Lymphocytes # (Manual) Monocytes # (Manual) Eosinophils # (Manual) Nucleated RBC % Basophils # (Manual) PT INR APTT Heparin Anti-Xa Level 0.16 L ABG pH POC ABG pO2 ABG pO2 ABG HCO3 ABG O2 Saturation ABG Base Excess POC ABG pCO2 ABG Hemoglobin ABG Oxyhemoglobin ABG Glucose Oxyhemoglobin Sodium Potassium Chloride Carbon Dioxide BUN Creatinine Glucose POC Glucose 145 H 124 H Lactic Acid Calcium Phosphorus Magnesium AST ALT Lactate Dehydrogenase Total Bilirubin CK-MB (CK-2) C-Reactive Protein NT-Pro-B Natriuret Pep Total Protein Albumin Arterial Blood Glucose Urine WBC (Auto) Urine Creatinine 12/24/19 12/25/19 12/25/19 17:53 00:14 04:18 WBC 12.9 H RBC 3.30 L Hgb 9.1 L Hct 28.8 L MCHC RDW 16.4 H MCV MCH Lymph % (Auto) [place] % (Auto) 7.8 H [place] # Eos # Lymph # (Auto) [place] # (Auto) 1.0 H Eos # (Auto) Seg Neutrophils % 75.5 H Seg Neuts % (Manual) Baso # (Auto) Lymphocytes % (Manual) Monocytes % (Manual) Eosinophils % (Manual) Basophils % (Manual) Seg Neutrophils # 9.7 H Seg Neutrophils # Man Lymphocytes # (Manual) Monocytes # (Manual) Eosinophils # (Manual) Nucleated RBC % Basophils # (Manual) PT INR APTT Heparin Anti-Xa Level ABG pH POC ABG pO2 ABG pO2 ABG HCO3 ABG O2 Saturation ABG Base Excess POC ABG pCO2 ABG Hemoglobin ABG Oxyhemoglobin ABG Glucose Oxyhemoglobin Sodium Potassium Chloride Carbon Dioxide BUN Creatinine Glucose POC Glucose 164 H 148 H Lactic Acid Calcium Phosphorus Magnesium AST ALT Lactate Dehydrogenase Total Bilirubin CK-MB (CK-2) C-Reactive Protein NT-Pro-B Natriuret Pep Total Protein Albumin Arterial Blood Glucose Urine WBC (Auto) Urine Creatinine 12/25/19 12/25/19 12/25/19 04:18 05:38 11:44 WBC RBC Hgb Hct MCHC RDW MCV MCH Lymph % (Auto) [place] % (Auto) [place] # Eos # Lymph # (Auto) [place] # (Auto) Eos # (Auto) Seg Neutrophils % Seg Neuts % (Manual) Baso # (Auto) Lymphocytes % (Manual) Monocytes % (Manual) Eosinophils % (Manual) Basophils % (Manual) Seg Neutrophils # Seg Neutrophils # Man Lymphocytes # (Manual) Monocytes # (Manual) Eosinophils # (Manual) Nucleated RBC % Basophils # (Manual) PT INR APTT Heparin Anti-Xa Level ABG pH POC ABG pO2 ABG pO2 ABG HCO3 ABG O2 Saturation ABG Base Excess POC ABG pCO2 ABG Hemoglobin ABG Oxyhemoglobin ABG Glucose Oxyhemoglobin Sodium Potassium Chloride Carbon Dioxide 33 H BUN 27 H Creatinine 0.6 L Glucose 132 H POC Glucose 152 H 166 H Lactic Acid Calcium Phosphorus Magnesium AST ALT Lactate Dehydrogenase Total Bilirubin CK-MB (CK-2) C-Reactive Protein NT-Pro-B Natriuret Pep Total Protein Albumin Arterial Blood Glucose Urine WBC (Auto) Urine Creatinine 12/25/19 12/26/19 12/26/19 18:29 00:17 00:18 WBC RBC Hgb Hct MCHC RDW MCV MCH Lymph % (Auto) [place] % (Auto) [place] # Eos # Lymph # (Auto) [place] # (Auto) Eos # (Auto) Seg Neutrophils % Seg Neuts % (Manual) Baso # (Auto) Lymphocytes % (Manual) Monocytes % (Manual) Eosinophils % (Manual) Basophils % (Manual) Seg Neutrophils # Seg Neutrophils # Man Lymphocytes # (Manual) Monocytes # (Manual) Eosinophils # (Manual) Nucleated RBC % Basophils # (Manual) PT INR APTT Heparin Anti-Xa Level ABG pH POC ABG pO2 ABG pO2 ABG HCO3 ABG O2 Saturation ABG Base Excess POC ABG pCO2 ABG Hemoglobin ABG Oxyhemoglobin ABG Glucose Oxyhemoglobin Sodium Potassium Chloride 97.8 L Carbon Dioxide BUN 25 H Creatinine 0.6 L Glucose 140 H POC Glucose 194 H 151 H Lactic Acid Calcium Phosphorus Magnesium AST ALT Lactate Dehydrogenase Total Bilirubin CK-MB (CK-2) C-Reactive Protein NT-Pro-B Natriuret Pep Total Protein Albumin Arterial Blood Glucose Urine WBC (Auto) Urine Creatinine 12/26/19 12/26/19 12/26/19 05:36 11:41 17:50 WBC RBC Hgb Hct MCHC RDW MCV MCH Lymph % (Auto) [place] % (Auto) [place] # Eos # Lymph # (Auto) [place] # (Auto) Eos # (Auto) Seg Neutrophils % Seg Neuts % (Manual) Baso # (Auto) Lymphocytes % (Manual) Monocytes % (Manual) Eosinophils % (Manual) Basophils % (Manual) Seg Neutrophils # Seg Neutrophils # Man Lymphocytes # (Manual) Monocytes # (Manual) Eosinophils # (Manual) Nucleated RBC % Basophils # (Manual) PT INR APTT Heparin Anti-Xa Level ABG pH POC ABG pO2 ABG pO2 ABG HCO3 ABG O2 Saturation ABG Base Excess POC ABG pCO2 ABG Hemoglobin ABG Oxyhemoglobin ABG Glucose Oxyhemoglobin Sodium Potassium Chloride Carbon Dioxide BUN Creatinine Glucose POC Glucose 156 H 148 H 139 H Lactic Acid Calcium Phosphorus Magnesium AST ALT Lactate Dehydrogenase Total Bilirubin CK-MB (CK-2) C-Reactive Protein NT-Pro-B Natriuret Pep Total Protein Albumin Arterial Blood Glucose Urine WBC (Auto) Urine Creatinine 12/26/19 12/27/19 12/27/19 23:19 05:34 12:02 WBC RBC Hgb Hct MCHC RDW MCV MCH Lymph % (Auto) [place] % (Auto) [place] # Eos # Lymph # (Auto) [place] # (Auto) Eos # (Auto) Seg Neutrophils % Seg Neuts % (Manual) Baso # (Auto) Lymphocytes % (Manual) Monocytes % (Manual) Eosinophils % (Manual) Basophils % (Manual) Seg Neutrophils # Seg Neutrophils # Man Lymphocytes # (Manual) Monocytes # (Manual) Eosinophils # (Manual) Nucleated RBC % Basophils # (Manual) PT INR APTT Heparin Anti-Xa Level ABG pH POC ABG pO2 ABG pO2 ABG HCO3 ABG O2 Saturation ABG Base Excess POC ABG pCO2 ABG Hemoglobin ABG Oxyhemoglobin ABG Glucose Oxyhemoglobin Sodium Potassium Chloride Carbon Dioxide BUN Creatinine Glucose POC Glucose 161 H 145 H 157 H Lactic Acid Calcium Phosphorus Magnesium AST ALT Lactate Dehydrogenase Total Bilirubin CK-MB (CK-2) C-Reactive Protein NT-Pro-B Natriuret Pep Total Protein Albumin Arterial Blood Glucose Urine WBC (Auto) Urine Creatinine 12/27/19 12/27/19 12/27/19 17:35 20:11 23:00 WBC RBC Hgb Hct MCHC RDW MCV MCH Lymph % (Auto) [place] % (Auto) [place] # Eos # Lymph # (Auto) [place] # (Auto) Eos # (Auto) Seg Neutrophils % Seg Neuts % (Manual) Baso # (Auto) Lymphocytes % (Manual) Monocytes % (Manual) Eosinophils % (Manual) Basophils % (Manual) Seg Neutrophils # Seg Neutrophils # Man Lymphocytes # (Manual) Monocytes # (Manual) Eosinophils # (Manual) Nucleated RBC % Basophils # (Manual) PT INR APTT Heparin Anti-Xa Level 0.19 L ABG pH POC ABG pO2 ABG pO2 ABG HCO3 ABG O2 Saturation ABG Base Excess POC ABG pCO2 ABG Hemoglobin ABG Oxyhemoglobin ABG Glucose Oxyhemoglobin Sodium Potassium Chloride Carbon Dioxide BUN Creatinine Glucose POC Glucose 158 H 155 H Lactic Acid Calcium Phosphorus Magnesium AST ALT Lactate Dehydrogenase Total Bilirubin CK-MB (CK-2) C-Reactive Protein NT-Pro-B Natriuret Pep Total Protein Albumin Arterial Blood Glucose Urine WBC (Auto) Urine Creatinine 12/27/19 12/28/19 12/28/19 23:45 02:41 02:41 WBC 13.0 H RBC 3.48 L Hgb 9.5 L Hct 30.6 L MCHC 31 L RDW 16.6 H MCV MCH 27 L Lymph % (Auto) 13.0 L [place] % (Auto) 8.0 H [place] # Eos # Lymph # (Auto) [place] # (Auto) 1.0 H Eos # (Auto) Seg Neutrophils % 76.3 H Seg Neuts % (Manual) Baso # (Auto) Lymphocytes % (Manual) Monocytes % (Manual) Eosinophils % (Manual) Basophils % (Manual) Seg Neutrophils # 9.9 H Seg Neutrophils # Man Lymphocytes # (Manual) Monocytes # (Manual) Eosinophils # (Manual) Nucleated RBC % Basophils # (Manual) PT INR APTT Heparin Anti-Xa Level ABG pH POC ABG pO2 ABG pO2 ABG HCO3 ABG O2 Saturation ABG Base Excess POC ABG pCO2 ABG Hemoglobin ABG Oxyhemoglobin ABG Glucose Oxyhemoglobin Sodium Potassium Chloride Carbon Dioxide BUN 22 H Creatinine 0.6 L Glucose 101 H POC Glucose 130 H Lactic Acid Calcium Phosphorus Magnesium AST ALT Lactate Dehydrogenase Total Bilirubin CK-MB (CK-2) C-Reactive Protein NT-Pro-B Natriuret Pep Total Protein Albumin Arterial Blood Glucose Urine WBC (Auto) Urine Creatinine 12/28/19 12/28/19 12/28/19 06:00 12:34 18:13 WBC RBC Hgb Hct MCHC RDW MCV MCH Lymph % (Auto) [place] % (Auto) [place] # Eos # Lymph # (Auto) [place] # (Auto) Eos # (Auto) Seg Neutrophils % Seg Neuts % (Manual) Baso # (Auto) Lymphocytes % (Manual) Monocytes % (Manual) Eosinophils % (Manual) Basophils % (Manual) Seg Neutrophils # Seg Neutrophils # Man Lymphocytes # (Manual) Monocytes # (Manual) Eosinophils # (Manual) Nucleated RBC % Basophils # (Manual) PT INR APTT Heparin Anti-Xa Level ABG pH POC ABG pO2 ABG pO2 ABG HCO3 ABG O2 Saturation ABG Base Excess POC ABG pCO2 ABG Hemoglobin ABG Oxyhemoglobin ABG Glucose Oxyhemoglobin Sodium Potassium Chloride Carbon Dioxide BUN Creatinine Glucose POC Glucose 150 H 161 H 128 H Lactic Acid Calcium Phosphorus Magnesium AST ALT Lactate Dehydrogenase Total Bilirubin CK-MB (CK-2) C-Reactive Protein NT-Pro-B Natriuret Pep Total Protein Albumin Arterial Blood Glucose Urine WBC (Auto) Urine Creatinine 12/28/19 12/29/19 12/29/19 23:36 05:21 11:40 WBC RBC Hgb Hct MCHC RDW MCV MCH Lymph % (Auto) [place] % (Auto) [place] # Eos # Lymph # (Auto) [place] # (Auto) Eos # (Auto) Seg Neutrophils % Seg Neuts % (Manual) Baso # (Auto) Lymphocytes % (Manual) Monocytes % (Manual) Eosinophils % (Manual) Basophils % (Manual) Seg Neutrophils # Seg Neutrophils # Man Lymphocytes # (Manual) Monocytes # (Manual) Eosinophils # (Manual) Nucleated RBC % Basophils # (Manual) PT INR APTT Heparin Anti-Xa Level ABG pH POC ABG pO2 ABG pO2 ABG HCO3 ABG O2 Saturation ABG Base Excess POC ABG pCO2 ABG Hemoglobin ABG Oxyhemoglobin ABG Glucose Oxyhemoglobin Sodium Potassium Chloride Carbon Dioxide BUN Creatinine Glucose POC Glucose 137 H 136 H 166 H Lactic Acid Calcium Phosphorus Magnesium AST ALT Lactate Dehydrogenase Total Bilirubin CK-MB (CK-2) C-Reactive Protein NT-Pro-B Natriuret Pep Total Protein Albumin Arterial Blood Glucose Urine WBC (Auto) Urine Creatinine 12/29/19 12/29/19 12/29/19 17:23 19:21 23:38 WBC RBC Hgb Hct MCHC RDW MCV MCH Lymph % (Auto) [place] % (Auto) [place] # Eos # Lymph # (Auto) [place] # (Auto) Eos # (Auto) Seg Neutrophils % Seg Neuts % (Manual) Baso # (Auto) Lymphocytes % (Manual) Monocytes % (Manual) Eosinophils % (Manual) Basophils % (Manual) Seg Neutrophils # Seg Neutrophils # Man Lymphocytes # (Manual) Monocytes # (Manual) Eosinophils # (Manual) Nucleated RBC % Basophils # (Manual) PT INR APTT Heparin Anti-Xa Level 0.20 L ABG pH POC ABG pO2 ABG pO2 ABG HCO3 ABG O2 Saturation ABG Base Excess POC ABG pCO2 ABG Hemoglobin ABG Oxyhemoglobin ABG Glucose Oxyhemoglobin Sodium Potassium Chloride Carbon Dioxide BUN Creatinine Glucose POC Glucose 144 H 141 H Lactic Acid Calcium Phosphorus Magnesium AST ALT Lactate Dehydrogenase Total Bilirubin CK-MB (CK-2) C-Reactive Protein NT-Pro-B Natriuret Pep Total Protein Albumin Arterial Blood Glucose Urine WBC (Auto) Urine Creatinine 12/30/19 12/30/19 12/30/19 03:58 03:58 04:59 WBC RBC 3.54 L Hgb 9.8 L Hct 30.7 L MCHC RDW 16.8 H MCV MCH Lymph % (Auto) [place] % (Auto) [place] # Eos # Lymph # (Auto) [place] # (Auto) Eos # (Auto) Seg Neutrophils % Seg Neuts % (Manual) Baso # (Auto) Lymphocytes % (Manual) Monocytes % (Manual) Eosinophils % (Manual) Basophils % (Manual) Seg Neutrophils # Seg Neutrophils # Man Lymphocytes # (Manual) Monocytes # (Manual) Eosinophils # (Manual) Nucleated RBC % Basophils # (Manual) PT INR APTT Heparin Anti-Xa Level ABG pH POC ABG pO2 ABG pO2 ABG HCO3 29.8 H ABG O2 Saturation ABG Base Excess 4.8 H POC ABG pCO2 ABG Hemoglobin 11.2 L ABG Oxyhemoglobin ABG Glucose Oxyhemoglobin 93.8 L Sodium Potassium Chloride 97.8 L Carbon Dioxide BUN 26 H Creatinine Glucose 168 H POC Glucose Lactic Acid Calcium Phosphorus Magnesium AST ALT Lactate Dehydrogenase Total Bilirubin CK-MB (CK-2) C-Reactive Protein NT-Pro-B Natriuret Pep Total Protein Albumin Arterial Blood Glucose Urine WBC (Auto) Urine Creatinine 12/30/19 12/30/19 12/30/19 05:45 11:34 17:28 WBC RBC Hgb Hct MCHC RDW MCV MCH Lymph % (Auto) [place] % (Auto) [place] # Eos # Lymph # (Auto) [place] # (Auto) Eos # (Auto) Seg Neutrophils % Seg Neuts % (Manual) Baso # (Auto) Lymphocytes % (Manual) Monocytes % (Manual) Eosinophils % (Manual) Basophils % (Manual) Seg Neutrophils # Seg Neutrophils # Man Lymphocytes # (Manual) Monocytes # (Manual) Eosinophils # (Manual) Nucleated RBC % Basophils # (Manual) PT INR APTT Heparin Anti-Xa Level ABG pH POC ABG pO2 ABG pO2 ABG HCO3 ABG O2 Saturation ABG Base Excess POC ABG pCO2 ABG Hemoglobin ABG Oxyhemoglobin ABG Glucose Oxyhemoglobin Sodium Potassium Chloride Carbon Dioxide BUN Creatinine Glucose POC Glucose 163 H 180 H 150 H Lactic Acid Calcium Phosphorus Magnesium AST ALT Lactate Dehydrogenase Total Bilirubin CK-MB (CK-2) C-Reactive Protein NT-Pro-B Natriuret Pep Total Protein Albumin Arterial Blood Glucose Urine WBC (Auto) Urine Creatinine 12/30/19 12/31/19 12/31/19 23:43 04:55 05:07 WBC RBC Hgb Hct MCHC RDW MCV MCH Lymph % (Auto) [place] % (Auto) [place] # Eos # Lymph # (Auto) [place] # (Auto) Eos # (Auto) Seg Neutrophils % Seg Neuts % (Manual) Baso # (Auto) Lymphocytes % (Manual) Monocytes % (Manual) Eosinophils % (Manual) Basophils % (Manual) Seg Neutrophils # Seg Neutrophils # Man Lymphocytes # (Manual) Monocytes # (Manual) Eosinophils # (Manual) Nucleated RBC % Basophils # (Manual) PT INR APTT Heparin Anti-Xa Level ABG pH POC ABG pO2 ABG pO2 ABG HCO3 ABG O2 Saturation ABG Base Excess POC ABG pCO2 ABG Hemoglobin ABG Oxyhemoglobin ABG Glucose Oxyhemoglobin Sodium Potassium 5.6 H D Chloride Carbon Dioxide BUN 33 H Creatinine Glucose 131 H POC Glucose 142 H 134 H Lactic Acid Calcium Phosphorus Magnesium AST ALT Lactate Dehydrogenase Total Bilirubin CK-MB (CK-2) C-Reactive Protein NT-Pro-B Natriuret Pep Total Protein Albumin Arterial Blood Glucose Urine WBC (Auto) Urine Creatinine 12/31/19 12/31/19 12/31/19 11:30 17:19 17:36 WBC RBC Hgb Hct MCHC RDW MCV MCH Lymph % (Auto) [place] % (Auto) [place] # Eos # Lymph # (Auto) [place] # (Auto) Eos # (Auto) Seg Neutrophils % Seg Neuts % (Manual) Baso # (Auto) Lymphocytes % (Manual) Monocytes % (Manual) Eosinophils % (Manual) Basophils % (Manual) Seg Neutrophils # Seg Neutrophils # Man Lymphocytes # (Manual) Monocytes # (Manual) Eosinophils # (Manual) Nucleated RBC % Basophils # (Manual) PT INR APTT Heparin Anti-Xa Level ABG pH POC ABG pO2 ABG pO2 ABG HCO3 ABG O2 Saturation ABG Base Excess POC ABG pCO2 ABG Hemoglobin ABG Oxyhemoglobin ABG Glucose Oxyhemoglobin Sodium Potassium Chloride Carbon Dioxide BUN 35 H Creatinine Glucose 156 H POC Glucose 158 H 181 H Lactic Acid Calcium Phosphorus Magnesium AST ALT Lactate Dehydrogenase Total Bilirubin CK-MB (CK-2) C-Reactive Protein NT-Pro-B Natriuret Pep Total Protein Albumin Arterial Blood Glucose Urine WBC (Auto) Urine Creatinine 12/31/19 12/31/19 12/31/19 18:16 19:41 21:53 WBC RBC Hgb Hct MCHC RDW MCV MCH Lymph % (Auto) [place] % (Auto) [place] # Eos # Lymph # (Auto) [place] # (Auto) Eos # (Auto) Seg Neutrophils % Seg Neuts % (Manual) Baso # (Auto) Lymphocytes % (Manual) Monocytes % (Manual) Eosinophils % (Manual) Basophils % (Manual) Seg Neutrophils # Seg Neutrophils # Man Lymphocytes # (Manual) Monocytes # (Manual) Eosinophils # (Manual) Nucleated RBC % Basophils # (Manual) PT INR APTT Heparin Anti-Xa Level 0.20 L ABG pH POC ABG pO2 ABG pO2 ABG HCO3 ABG O2 Saturation ABG Base Excess POC ABG pCO2 ABG Hemoglobin ABG Oxyhemoglobin ABG Glucose Oxyhemoglobin Sodium Potassium Chloride Carbon Dioxide BUN 34 H Creatinine Glucose 169 H POC Glucose 141 H Lactic Acid Calcium Phosphorus Magnesium AST ALT Lactate Dehydrogenase Total Bilirubin CK-MB (CK-2) C-Reactive Protein NT-Pro-B Natriuret Pep Total Protein Albumin Arterial Blood Glucose Urine WBC (Auto) Urine Creatinine 12/31/19 01/01/20 01/01/20 23:51 05:17 10:40 WBC RBC Hgb Hct MCHC RDW MCV MCH Lymph % (Auto) [place] % (Auto) [place] # Eos # Lymph # (Auto) [place] # (Auto) Eos # (Auto) Seg Neutrophils % Seg Neuts % (Manual) Baso # (Auto) Lymphocytes % (Manual) Monocytes % (Manual) Eosinophils % (Manual) Basophils % (Manual) Seg Neutrophils # Seg Neutrophils # Man Lymphocytes # (Manual) Monocytes # (Manual) Eosinophils # (Manual) Nucleated RBC % Basophils # (Manual) PT INR APTT Heparin Anti-Xa Level ABG pH POC ABG pO2 ABG pO2 ABG HCO3 ABG O2 Saturation ABG Base Excess POC ABG pCO2 ABG Hemoglobin ABG Oxyhemoglobin ABG Glucose Oxyhemoglobin Sodium Potassium Chloride Carbon Dioxide BUN 31 H Creatinine 0.7 L Glucose 137 H POC Glucose 131 H 155 H Lactic Acid Calcium Phosphorus Magnesium AST 73 H ALT 97 H Lactate Dehydrogenase Total Bilirubin CK-MB (CK-2) C-Reactive Protein NT-Pro-B Natriuret Pep 3866 H Total Protein Albumin 2.8 L Arterial Blood Glucose Urine WBC (Auto) Urine Creatinine 01/01/20 01/01/20 01/01/20 12:26 15:33 17:53 WBC 14.3 H RBC 3.35 L Hgb 9.1 L Hct 28.8 L MCHC RDW 17.0 H MCV MCH 27 L Lymph % (Auto) 7.0 L [place] % (Auto) 7.6 H [place] # Eos # Lymph # (Auto) 1.0 L [place] # (Auto) 1.1 H Eos # (Auto) Seg Neutrophils % 83.3 H Seg Neuts % (Manual) Baso # (Auto) Lymphocytes % (Manual) Monocytes % (Manual) Eosinophils % (Manual) Basophils % (Manual) Seg Neutrophils # 12.0 H Seg Neutrophils # Man Lymphocytes # (Manual) Monocytes # (Manual) Eosinophils # (Manual) Nucleated RBC % Basophils # (Manual) PT INR APTT Heparin Anti-Xa Level ABG pH POC ABG pO2 ABG pO2 ABG HCO3 ABG O2 Saturation ABG Base Excess POC ABG pCO2 ABG Hemoglobin ABG Oxyhemoglobin ABG Glucose Oxyhemoglobin Sodium Potassium Chloride Carbon Dioxide BUN Creatinine Glucose POC Glucose 128 H 128 H Lactic Acid Calcium Phosphorus Magnesium AST ALT Lactate Dehydrogenase Total Bilirubin CK-MB (CK-2) C-Reactive Protein NT-Pro-B Natriuret Pep Total Protein Albumin Arterial Blood Glucose Urine WBC (Auto) Urine Creatinine 01/01/20 01/02/20 01/02/20 23:04 05:39 07:00 WBC RBC Hgb Hct MCHC RDW MCV MCH Lymph % (Auto) [place] % (Auto) [place] # Eos # Lymph # (Auto) [place] # (Auto) Eos # (Auto) Seg Neutrophils % Seg Neuts % (Manual) Baso # (Auto) Lymphocytes % (Manual) Monocytes % (Manual) Eosinophils % (Manual) Basophils % (Manual) Seg Neutrophils # Seg Neutrophils # Man Lymphocytes # (Manual) Monocytes # (Manual) Eosinophils # (Manual) Nucleated RBC % Basophils # (Manual) PT INR APTT Heparin Anti-Xa Level 0.13 L ABG pH POC ABG pO2 ABG pO2 ABG HCO3 ABG O2 Saturation ABG Base Excess POC ABG pCO2 ABG Hemoglobin ABG Oxyhemoglobin ABG Glucose Oxyhemoglobin Sodium Potassium Chloride Carbon Dioxide BUN Creatinine Glucose POC Glucose 120 H 169 H Lactic Acid Calcium Phosphorus Magnesium AST ALT Lactate Dehydrogenase Total Bilirubin CK-MB (CK-2) C-Reactive Protein NT-Pro-B Natriuret Pep Total Protein Albumin Arterial Blood Glucose Urine WBC (Auto) Urine Creatinine 01/02/20 01/02/20 01/02/20 12:15 14:06 17:58 WBC RBC Hgb Hct MCHC RDW MCV MCH Lymph % (Auto) [place] % (Auto) [place] # Eos # Lymph # (Auto) [place] # (Auto) Eos # (Auto) Seg Neutrophils % Seg Neuts % (Manual) Baso # (Auto) Lymphocytes % (Manual) Monocytes % (Manual) Eosinophils % (Manual) Basophils % (Manual) Seg Neutrophils # Seg Neutrophils # Man Lymphocytes # (Manual) Monocytes # (Manual) Eosinophils # (Manual) Nucleated RBC % Basophils # (Manual) PT INR APTT Heparin Anti-Xa Level < 0.10 L ABG pH POC ABG pO2 ABG pO2 ABG HCO3 ABG O2 Saturation ABG Base Excess POC ABG pCO2 ABG Hemoglobin ABG Oxyhemoglobin ABG Glucose Oxyhemoglobin Sodium Potassium Chloride Carbon Dioxide BUN Creatinine Glucose POC Glucose 190 H 198 H Lactic Acid Calcium Phosphorus Magnesium AST ALT Lactate Dehydrogenase Total Bilirubin CK-MB (CK-2) C-Reactive Protein NT-Pro-B Natriuret Pep Total Protein Albumin Arterial Blood Glucose Urine WBC (Auto) Urine Creatinine 01/02/20 01/02/20 01/03/20 21:43 23:33 05:42 WBC RBC Hgb Hct MCHC RDW MCV MCH Lymph % (Auto) [place] % (Auto) [place] # Eos # Lymph # (Auto) [place] # (Auto) Eos # (Auto) Seg Neutrophils % Seg Neuts % (Manual) Baso # (Auto) Lymphocytes % (Manual) Monocytes % (Manual) Eosinophils % (Manual) Basophils % (Manual) Seg Neutrophils # Seg Neutrophils # Man Lymphocytes # (Manual) Monocytes # (Manual) Eosinophils # (Manual) Nucleated RBC % Basophils # (Manual) PT INR APTT Heparin Anti-Xa Level 0.10 L ABG pH POC ABG pO2 ABG pO2 ABG HCO3 ABG O2 Saturation ABG Base Excess POC ABG pCO2 ABG Hemoglobin ABG Oxyhemoglobin ABG Glucose Oxyhemoglobin Sodium Potassium Chloride Carbon Dioxide BUN Creatinine Glucose POC Glucose 180 H 163 H Lactic Acid Calcium Phosphorus Magnesium AST ALT Lactate Dehydrogenase Total Bilirubin CK-MB (CK-2) C-Reactive Protein NT-Pro-B Natriuret Pep Total Protein Albumin Arterial Blood Glucose Urine WBC (Auto) Urine Creatinine 01/03/20 01/03/20 01/03/20 06:50 07:25 07:45 WBC 12.1 H RBC 3.35 L Hgb 9.0 L Hct 28.9 L MCHC 31 L RDW 16.6 H MCV MCH 27 L Lymph % (Auto) 13.0 L [place] % (Auto) 8.6 H [place] # Eos # Lymph # (Auto) [place] # (Auto) 1.0 H Eos # (Auto) Seg Neutrophils % 75.9 H Seg Neuts % (Manual) Baso # (Auto) Lymphocytes % (Manual) Monocytes % (Manual) Eosinophils % (Manual) Basophils % (Manual) Seg Neutrophils # 9.2 H Seg Neutrophils # Man Lymphocytes # (Manual) Monocytes # (Manual) Eosinophils # (Manual) Nucleated RBC % Basophils # (Manual) PT INR APTT Heparin Anti-Xa Level 0.29 L ABG pH POC ABG pO2 ABG pO2 ABG HCO3 ABG O2 Saturation ABG Base Excess POC ABG pCO2 ABG Hemoglobin ABG Oxyhemoglobin ABG Glucose Oxyhemoglobin Sodium Potassium 3.3 L D Chloride Carbon Dioxide 35 H D BUN 23 H Creatinine 0.6 L Glucose 149 H POC Glucose Lactic Acid Calcium Phosphorus Magnesium AST ALT 88 H Lactate Dehydrogenase Total Bilirubin CK-MB (CK-2) C-Reactive Protein NT-Pro-B Natriuret Pep Total Protein 6.2 L Albumin 2.9 L Arterial Blood Glucose Urine WBC (Auto) Urine Creatinine 01/03/20 01/03/20 01/03/20 12:05 17:42 18:30 WBC RBC Hgb Hct MCHC RDW MCV MCH Lymph % (Auto) [place] % (Auto) [place] # Eos # Lymph # (Auto) [place] # (Auto) Eos # (Auto) Seg Neutrophils % Seg Neuts % (Manual) Baso # (Auto) Lymphocytes % (Manual) Monocytes % (Manual) Eosinophils % (Manual) Basophils % (Manual) Seg Neutrophils # Seg Neutrophils # Man Lymphocytes # (Manual) Monocytes # (Manual) Eosinophils # (Manual) Nucleated RBC % Basophils # (Manual) PT INR APTT Heparin Anti-Xa Level ABG pH POC ABG pO2 ABG pO2 70.7 L ABG HCO3 36.1 H ABG O2 Saturation 94.4 L ABG Base Excess 10.0 H POC ABG pCO2 ABG Hemoglobin 9.7 L ABG Oxyhemoglobin ABG Glucose Oxyhemoglobin 91.8 L Sodium Potassium Chloride Carbon Dioxide BUN Creatinine Glucose POC Glucose 128 H 132 H Lactic Acid Calcium Phosphorus Magnesium AST ALT Lactate Dehydrogenase Total Bilirubin CK-MB (CK-2) C-Reactive Protein NT-Pro-B Natriuret Pep Total Protein Albumin Arterial Blood Glucose Urine WBC (Auto) Urine Creatinine 01/04/20 01/04/20 01/04/20 00:10 04:26 05:23 WBC RBC Hgb Hct MCHC RDW MCV MCH Lymph % (Auto) [place] % (Auto) [place] # Eos # Lymph # (Auto) [place] # (Auto) Eos # (Auto) Seg Neutrophils % Seg Neuts % (Manual) Baso # (Auto) Lymphocytes % (Manual) Monocytes % (Manual) Eosinophils % (Manual) Basophils % (Manual) Seg Neutrophils # Seg Neutrophils # Man Lymphocytes # (Manual) Monocytes # (Manual) Eosinophils # (Manual) Nucleated RBC % Basophils # (Manual) PT INR APTT Heparin Anti-Xa Level 0.16 L ABG pH POC ABG pO2 ABG pO2 ABG HCO3 ABG O2 Saturation ABG Base Excess POC ABG pCO2 ABG Hemoglobin ABG Oxyhemoglobin ABG Glucose Oxyhemoglobin Sodium Potassium Chloride Carbon Dioxide BUN Creatinine Glucose POC Glucose 121 H 119 H Lactic Acid Calcium Phosphorus Magnesium AST ALT Lactate Dehydrogenase Total Bilirubin CK-MB (CK-2) C-Reactive Protein NT-Pro-B Natriuret Pep Total Protein Albumin Arterial Blood Glucose Urine WBC (Auto) Urine Creatinine 01/04/20 01/04/20 01/04/20 09:50 09:50 12:18 WBC 15.4 H RBC 3.30 L Hgb 8.7 L Hct 28.2 L MCHC 31 L RDW 17.0 H MCV MCH 26 L Lymph % (Auto) [place] % (Auto) 7.6 H [place] # Eos # Lymph # (Auto) [place] # (Auto) 1.2 H Eos # (Auto) Seg Neutrophils % 75.4 H Seg Neuts % (Manual) Baso # (Auto) Lymphocytes % (Manual) Monocytes % (Manual) Eosinophils % (Manual) Basophils % (Manual) Seg Neutrophils # 11.6 H Seg Neutrophils # Man Lymphocytes # (Manual) Monocytes # (Manual) Eosinophils # (Manual) Nucleated RBC % Basophils # (Manual) PT INR APTT Heparin Anti-Xa Level ABG pH POC ABG pO2 ABG pO2 ABG HCO3 ABG O2 Saturation ABG Base Excess POC ABG pCO2 ABG Hemoglobin ABG Oxyhemoglobin ABG Glucose Oxyhemoglobin Sodium 148 H Potassium 3.5 L Chloride Carbon Dioxide 32 H BUN Creatinine 0.6 L Glucose 114 H POC Glucose 111 H Lactic Acid Calcium Phosphorus Magnesium AST ALT 59 H Lactate Dehydrogenase Total Bilirubin CK-MB (CK-2) C-Reactive Protein NT-Pro-B Natriuret Pep Total Protein Albumin 2.6 L Arterial Blood Glucose Urine WBC (Auto) Urine Creatinine 01/05/20 01/05/20 01/05/20 04:05 04:05 05:19 WBC 11.7 H RBC 3.50 L Hgb 9.3 L Hct 29.9 L MCHC 31 L RDW 16.6 H MCV MCH 27 L Lymph % (Auto) 13.1 L [place] % (Auto) 9.7 H [place] # Eos # Lymph # (Auto) [place] # (Auto) 1.1 H Eos # (Auto) Seg Neutrophils % 74.0 H Seg Neuts % (Manual) Baso # (Auto) Lymphocytes % (Manual) Monocytes % (Manual) Eosinophils % (Manual) Basophils % (Manual) Seg Neutrophils # 8.6 H Seg Neutrophils # Man Lymphocytes # (Manual) Monocytes # (Manual) Eosinophils # (Manual) Nucleated RBC % Basophils # (Manual) PT INR APTT Heparin Anti-Xa Level ABG pH POC ABG pO2 ABG pO2 ABG HCO3 ABG O2 Saturation ABG Base Excess POC ABG pCO2 ABG Hemoglobin ABG Oxyhemoglobin ABG Glucose Oxyhemoglobin Sodium 151 H Potassium Chloride Carbon Dioxide 34 H BUN Creatinine 0.7 L Glucose POC Glucose 112 H Lactic Acid Calcium Phosphorus Magnesium AST ALT 59 H Lactate Dehydrogenase Total Bilirubin CK-MB (CK-2) C-Reactive Protein NT-Pro-B Natriuret Pep Total Protein 5.8 L Albumin 2.6 L Arterial Blood Glucose Urine WBC (Auto) Urine Creatinine 01/05/20 01/06/20 01/06/20 16:04 00:23 04:44 WBC RBC 3.36 L Hgb 8.9 L Hct 28.7 L MCHC 31 L RDW 16.9 H MCV MCH 26 L Lymph % (Auto) [place] % (Auto) 9.4 H [place] # Eos # Lymph # (Auto) [place] # (Auto) Eos # (Auto) Seg Neutrophils % Seg Neuts % (Manual) Baso # (Auto) Lymphocytes % (Manual) Monocytes % (Manual) Eosinophils % (Manual) Basophils % (Manual) Seg Neutrophils # Seg Neutrophils # Man Lymphocytes # (Manual) Monocytes # (Manual) Eosinophils # (Manual) Nucleated RBC % Basophils # (Manual) PT INR APTT Heparin Anti-Xa Level ABG pH POC ABG pO2 ABG pO2 ABG HCO3 ABG O2 Saturation ABG Base Excess POC ABG pCO2 ABG Hemoglobin ABG Oxyhemoglobin ABG Glucose Oxyhemoglobin Sodium 151 H Potassium 3.2 L Chloride Carbon Dioxide 34 H BUN Creatinine 0.6 L Glucose POC Glucose 107 H Lactic Acid Calcium Phosphorus Magnesium AST ALT Lactate Dehydrogenase Total Bilirubin CK-MB (CK-2) C-Reactive Protein NT-Pro-B Natriuret Pep Total Protein Albumin Arterial Blood Glucose Urine WBC (Auto) Urine Creatinine 01/06/20 01/06/20 01/06/20 04:44 05:33 12:04 WBC RBC Hgb Hct MCHC RDW MCV MCH Lymph % (Auto) [place] % (Auto) [place] # Eos # Lymph # (Auto) [place] # (Auto) Eos # (Auto) Seg Neutrophils % Seg Neuts % (Manual) Baso # (Auto) Lymphocytes % (Manual) Monocytes % (Manual) Eosinophils % (Manual) Basophils % (Manual) Seg Neutrophils # Seg Neutrophils # Man Lymphocytes # (Manual) Monocytes # (Manual) Eosinophils # (Manual) Nucleated RBC % Basophils # (Manual) PT INR APTT Heparin Anti-Xa Level ABG pH POC ABG pO2 ABG pO2 ABG HCO3 ABG O2 Saturation ABG Base Excess POC ABG pCO2 ABG Hemoglobin ABG Oxyhemoglobin ABG Glucose Oxyhemoglobin Sodium 151 H Potassium 3.4 L Chloride Carbon Dioxide 33 H BUN Creatinine 0.6 L Glucose 118 H POC Glucose 118 H 123 H Lactic Acid Calcium Phosphorus Magnesium AST ALT Lactate Dehydrogenase Total Bilirubin CK-MB (CK-2) C-Reactive Protein NT-Pro-B Natriuret Pep Total Protein 6.2 L Albumin 2.6 L Arterial Blood Glucose Urine WBC (Auto) Urine Creatinine 01/06/20 01/07/20 01/07/20 17:54 00:06 04:10 WBC RBC 3.42 L Hgb 8.9 L Hct 29.0 L MCHC 31 L RDW 17.1 H MCV MCH 26 L Lymph % (Auto) [place] % (Auto) 8.4 H [place] # Eos # Lymph # (Auto) [place] # (Auto) Eos # (Auto) Seg Neutrophils % Seg Neuts % (Manual) Baso # (Auto) Lymphocytes % (Manual) Monocytes % (Manual) Eosinophils % (Manual) Basophils % (Manual) Seg Neutrophils # Seg Neutrophils # Man Lymphocytes # (Manual) Monocytes # (Manual) Eosinophils # (Manual) Nucleated RBC % Basophils # (Manual) PT INR APTT Heparin Anti-Xa Level ABG pH POC ABG pO2 ABG pO2 ABG HCO3 ABG O2 Saturation ABG Base Excess POC ABG pCO2 ABG Hemoglobin ABG Oxyhemoglobin ABG Glucose Oxyhemoglobin Sodium Potassium Chloride Carbon Dioxide BUN Creatinine Glucose POC Glucose 112 H 126 H Lactic Acid Calcium Phosphorus Magnesium AST ALT Lactate Dehydrogenase Total Bilirubin CK-MB (CK-2) C-Reactive Protein NT-Pro-B Natriuret Pep Total Protein Albumin Arterial Blood Glucose Urine WBC (Auto) Urine Creatinine 01/07/20 01/07/20 01/07/20 04:10 05:59 12:27 WBC RBC Hgb Hct MCHC RDW MCV MCH Lymph % (Auto) [place] % (Auto) [place] # Eos # Lymph # (Auto) [place] # (Auto) Eos # (Auto) Seg Neutrophils % Seg Neuts % (Manual) Baso # (Auto) Lymphocytes % (Manual) Monocytes % (Manual) Eosinophils % (Manual) Basophils % (Manual) Seg Neutrophils # Seg Neutrophils # Man Lymphocytes # (Manual) Monocytes # (Manual) Eosinophils # (Manual) Nucleated RBC % Basophils # (Manual) PT INR APTT Heparin Anti-Xa Level ABG pH POC ABG pO2 ABG pO2 ABG HCO3 ABG O2 Saturation ABG Base Excess POC ABG pCO2 ABG Hemoglobin ABG Oxyhemoglobin ABG Glucose Oxyhemoglobin Sodium 153 H Potassium 3.5 L Chloride Carbon Dioxide 34 H BUN Creatinine 0.6 L Glucose 121 H POC Glucose 121 H 126 H Lactic Acid Calcium Phosphorus Magnesium AST ALT Lactate Dehydrogenase Total Bilirubin CK-MB (CK-2) C-Reactive Protein NT-Pro-B Natriuret Pep Total Protein 5.9 L Albumin 2.4 L Arterial Blood Glucose Urine WBC (Auto) Urine Creatinine 01/07/20 01/08/20 01/08/20 18:12 00:03 05:41 WBC RBC Hgb Hct MCHC RDW MCV MCH Lymph % (Auto) [place] % (Auto) [place] # Eos # Lymph # (Auto) [place] # (Auto) Eos # (Auto) Seg Neutrophils % Seg Neuts % (Manual) Baso # (Auto) Lymphocytes % (Manual) Monocytes % (Manual) Eosinophils % (Manual) Basophils % (Manual) Seg Neutrophils # Seg Neutrophils # Man Lymphocytes # (Manual) Monocytes # (Manual) Eosinophils # (Manual) Nucleated RBC % Basophils # (Manual) PT INR APTT Heparin Anti-Xa Level ABG pH POC ABG pO2 ABG pO2 ABG HCO3 ABG O2 Saturation ABG Base Excess POC ABG pCO2 ABG Hemoglobin ABG Oxyhemoglobin ABG Glucose Oxyhemoglobin Sodium Potassium Chloride Carbon Dioxide BUN Creatinine Glucose POC Glucose 124 H 130 H 138 H Lactic Acid Calcium Phosphorus Magnesium AST ALT Lactate Dehydrogenase Total Bilirubin CK-MB (CK-2) C-Reactive Protein NT-Pro-B Natriuret Pep Total Protein Albumin Arterial Blood Glucose Urine WBC (Auto) Urine Creatinine 01/08/20 01/08/20 01/08/20 09:28 11:42 18:21 WBC RBC Hgb Hct MCHC RDW MCV MCH Lymph % (Auto) [place] % (Auto) [place] # Eos # Lymph # (Auto) [place] # (Auto) Eos # (Auto) Seg Neutrophils % Seg Neuts % (Manual) Baso # (Auto) Lymphocytes % (Manual) Monocytes % (Manual) Eosinophils % (Manual) Basophils % (Manual) Seg Neutrophils # Seg Neutrophils # Man Lymphocytes # (Manual) Monocytes # (Manual) Eosinophils # (Manual) Nucleated RBC % Basophils # (Manual) PT INR APTT Heparin Anti-Xa Level ABG pH POC ABG pO2 ABG pO2 ABG HCO3 ABG O2 Saturation ABG Base Excess POC ABG pCO2 ABG Hemoglobin ABG Oxyhemoglobin ABG Glucose Oxyhemoglobin Sodium Potassium Chloride Carbon Dioxide BUN Creatinine Glucose POC Glucose 181 H 150 H 129 H Lactic Acid Calcium Phosphorus Magnesium AST ALT Lactate Dehydrogenase Total Bilirubin CK-MB (CK-2) C-Reactive Protein NT-Pro-B Natriuret Pep Total Protein Albumin Arterial Blood Glucose Urine WBC (Auto) Urine Creatinine 01/08/20 01/08/20 01/09/20 19:25 23:55 04:11 WBC RBC 3.43 L Hgb 8.9 L Hct 28.7 L MCHC 31 L RDW 17.6 H MCV MCH 26 L Lymph % (Auto) [place] % (Auto) 8.6 H [place] # Eos # Lymph # (Auto) [place] # (Auto) Eos # (Auto) Seg Neutrophils % Seg Neuts % (Manual) Baso # (Auto) Lymphocytes % (Manual) Monocytes % (Manual) Eosinophils % (Manual) Basophils % (Manual) Seg Neutrophils # Seg Neutrophils # Man Lymphocytes # (Manual) Monocytes # (Manual) Eosinophils # (Manual) Nucleated RBC % Basophils # (Manual) PT INR APTT Heparin Anti-Xa Level ABG pH POC ABG pO2 ABG pO2 ABG HCO3 ABG O2 Saturation ABG Base Excess POC ABG pCO2 ABG Hemoglobin ABG Oxyhemoglobin ABG Glucose Oxyhemoglobin Sodium Potassium Chloride Carbon Dioxide BUN Creatinine 0.7 L Glucose 117 H POC Glucose 132 H Lactic Acid Calcium Phosphorus Magnesium AST ALT Lactate Dehydrogenase Total Bilirubin CK-MB (CK-2) C-Reactive Protein NT-Pro-B Natriuret Pep Total Protein Albumin Arterial Blood Glucose Urine WBC (Auto) Urine Creatinine 01/09/20 01/09/20 01/09/20 04:11 05:38 22:58 WBC RBC Hgb Hct MCHC RDW MCV MCH Lymph % (Auto) [place] % (Auto) [place] # Eos # Lymph # (Auto) [place] # (Auto) Eos # (Auto) Seg Neutrophils % Seg Neuts % (Manual) Baso # (Auto) Lymphocytes % (Manual) Monocytes % (Manual) Eosinophils % (Manual) Basophils % (Manual) Seg Neutrophils # Seg Neutrophils # Man Lymphocytes # (Manual) Monocytes # (Manual) Eosinophils # (Manual) Nucleated RBC % Basophils # (Manual) PT INR APTT Heparin Anti-Xa Level ABG pH POC ABG pO2 ABG pO2 ABG HCO3 ABG O2 Saturation ABG Base Excess POC ABG pCO2 ABG Hemoglobin ABG Oxyhemoglobin ABG Glucose Oxyhemoglobin Sodium 147 H Potassium 3.3 L D Chloride Carbon Dioxide 32 H BUN Creatinine 0.6 L Glucose 106 H POC Glucose 107 H 113 H Lactic Acid Calcium Phosphorus Magnesium AST ALT Lactate Dehydrogenase Total Bilirubin CK-MB (CK-2) C-Reactive Protein NT-Pro-B Natriuret Pep Total Protein Albumin Arterial Blood Glucose Urine WBC (Auto) Urine Creatinine 01/10/20 01/10/20 01/10/20 04:05 11:36 17:54 WBC RBC Hgb Hct MCHC RDW MCV MCH Lymph % (Auto) [place] % (Auto) [place] # Eos # Lymph # (Auto) [place] # (Auto) Eos # (Auto) Seg Neutrophils % Seg Neuts % (Manual) Baso # (Auto) Lymphocytes % (Manual) Monocytes % (Manual) Eosinophils % (Manual) Basophils % (Manual) Seg Neutrophils # Seg Neutrophils # Man Lymphocytes # (Manual) Monocytes # (Manual) Eosinophils # (Manual) Nucleated RBC % Basophils # (Manual) PT INR APTT Heparin Anti-Xa Level ABG pH POC ABG pO2 ABG pO2 ABG HCO3 ABG O2 Saturation ABG Base Excess POC ABG pCO2 ABG Hemoglobin ABG Oxyhemoglobin ABG Glucose Oxyhemoglobin Sodium Potassium Chloride Carbon Dioxide BUN Creatinine 0.7 L Glucose 110 H POC Glucose 129 H 117 H Lactic Acid Calcium Phosphorus Magnesium AST ALT Lactate Dehydrogenase Total Bilirubin CK-MB (CK-2) C-Reactive Protein NT-Pro-B Natriuret Pep Total Protein Albumin Arterial Blood Glucose Urine WBC (Auto) Urine Creatinine 01/10/20 01/11/20 01/11/20 23:52 03:19 12:09 WBC RBC Hgb Hct MCHC RDW MCV MCH Lymph % (Auto) [place] % (Auto) [place] # Eos # Lymph # (Auto) [place] # (Auto) Eos # (Auto) Seg Neutrophils % Seg Neuts % (Manual) Baso # (Auto) Lymphocytes % (Manual) Monocytes % (Manual) Eosinophils % (Manual) Basophils % (Manual) Seg Neutrophils # Seg Neutrophils # Man Lymphocytes # (Manual) Monocytes # (Manual) Eosinophils # (Manual) Nucleated RBC % Basophils # (Manual) PT INR APTT Heparin Anti-Xa Level ABG pH POC ABG pO2 ABG pO2 ABG HCO3 ABG O2 Saturation ABG Base Excess POC ABG pCO2 ABG Hemoglobin ABG Oxyhemoglobin ABG Glucose Oxyhemoglobin Sodium Potassium Chloride Carbon Dioxide BUN Creatinine Glucose POC Glucose 117 H 136 H 115 H Lactic Acid Calcium Phosphorus Magnesium AST ALT Lactate Dehydrogenase Total Bilirubin CK-MB (CK-2) C-Reactive Protein NT-Pro-B Natriuret Pep Total Protein Albumin Arterial Blood Glucose Urine WBC (Auto) Urine Creatinine 01/11/20 01/11/20 01/12/20 18:27 23:28 00:23 WBC RBC Hgb 9.8 L Hct 31.6 L MCHC 31 L RDW 17.8 H MCV 83 L MCH 26 L Lymph % (Auto) [place] % (Auto) 8.0 H [place] # Eos # Lymph # (Auto) [place] # (Auto) Eos # (Auto) Seg Neutrophils % Seg Neuts % (Manual) Baso # (Auto) Lymphocytes % (Manual) Monocytes % (Manual) Eosinophils % (Manual) Basophils % (Manual) Seg Neutrophils # Seg Neutrophils # Man Lymphocytes # (Manual) Monocytes # (Manual) Eosinophils # (Manual) Nucleated RBC % Basophils # (Manual) PT INR APTT Heparin Anti-Xa Level ABG pH POC ABG pO2 ABG pO2 ABG HCO3 ABG O2 Saturation ABG Base Excess POC ABG pCO2 ABG Hemoglobin ABG Oxyhemoglobin ABG Glucose Oxyhemoglobin Sodium Potassium Chloride Carbon Dioxide BUN Creatinine Glucose POC Glucose 118 H 122 H Lactic Acid Calcium Phosphorus Magnesium AST ALT Lactate Dehydrogenase Total Bilirubin CK-MB (CK-2) C-Reactive Protein NT-Pro-B Natriuret Pep Total Protein Albumin Arterial Blood Glucose Urine WBC (Auto) Urine Creatinine 01/12/20 01/12/20 01/12/20 00:23 04:18 04:18 WBC RBC Hgb 9.6 L Hct 30.9 L MCHC 31 L RDW 17.3 H MCV 81 L MCH 25 L Lymph % (Auto) [place] % (Auto) [place] # Eos # Lymph # (Auto) [place] # (Auto) Eos # (Auto) Seg Neutrophils % Seg Neuts % (Manual) Baso # (Auto) Lymphocytes % (Manual) Monocytes % (Manual) Eosinophils % (Manual) Basophils % (Manual) Seg Neutrophils # Seg Neutrophils # Man Lymphocytes # (Manual) Monocytes # (Manual) Eosinophils # (Manual) Nucleated RBC % Basophils # (Manual) PT INR APTT Heparin Anti-Xa Level ABG pH POC ABG pO2 ABG pO2 ABG HCO3 ABG O2 Saturation ABG Base Excess POC ABG pCO2 ABG Hemoglobin ABG Oxyhemoglobin ABG Glucose Oxyhemoglobin Sodium Potassium Chloride Carbon Dioxide BUN Creatinine 0.7 L 0.7 L Glucose 111 H 108 H POC Glucose Lactic Acid Calcium Phosphorus Magnesium AST ALT Lactate Dehydrogenase Total Bilirubin CK-MB (CK-2) C-Reactive Protein NT-Pro-B Natriuret Pep Total Protein Albumin 2.6 L Arterial Blood Glucose Urine WBC (Auto) Urine Creatinine 01/12/20 01/12/20 01/12/20 06:03 12:27 13:58 WBC RBC Hgb Hct MCHC RDW MCV MCH Lymph % (Auto) [place] % (Auto) [place] # Eos # Lymph # (Auto) [place] # (Auto) Eos # (Auto) Seg Neutrophils % Seg Neuts % (Manual) Baso # (Auto) Lymphocytes % (Manual) Monocytes % (Manual) Eosinophils % (Manual) Basophils % (Manual) Seg Neutrophils # Seg Neutrophils # Man Lymphocytes # (Manual) Monocytes # (Manual) Eosinophils # (Manual) Nucleated RBC % Basophils # (Manual) PT INR APTT Heparin Anti-Xa Level ABG pH 7.453 H POC ABG pO2 76.6 L ABG pO2 ABG HCO3 ABG O2 Saturation ABG Base Excess POC ABG pCO2 ABG Hemoglobin 10.3 L ABG Oxyhemoglobin ABG Glucose 99 H Oxyhemoglobin Sodium Potassium Chloride Carbon Dioxide BUN Creatinine Glucose POC Glucose 128 H 121 H Lactic Acid Calcium Phosphorus Magnesium AST ALT Lactate Dehydrogenase Total Bilirubin CK-MB (CK-2) C-Reactive Protein NT-Pro-B Natriuret Pep Total Protein Albumin Arterial Blood Glucose 99 H Urine WBC (Auto) Urine Creatinine 01/12/20 01/13/20 01/13/20 18:24 12:01 17:46 WBC RBC Hgb Hct MCHC RDW MCV MCH Lymph % (Auto) [place] % (Auto) [place] # Eos # Lymph # (Auto) [place] # (Auto) Eos # (Auto) Seg Neutrophils % Seg Neuts % (Manual) Baso # (Auto) Lymphocytes % (Manual) Monocytes % (Manual) Eosinophils % (Manual) Basophils % (Manual) Seg Neutrophils # Seg Neutrophils # Man Lymphocytes # (Manual) Monocytes # (Manual) Eosinophils # (Manual) Nucleated RBC % Basophils # (Manual) PT INR APTT Heparin Anti-Xa Level ABG pH POC ABG pO2 ABG pO2 ABG HCO3 ABG O2 Saturation ABG Base Excess POC ABG pCO2 ABG Hemoglobin ABG Oxyhemoglobin ABG Glucose Oxyhemoglobin Sodium Potassium Chloride Carbon Dioxide BUN Creatinine Glucose POC Glucose 119 H 107 H 124 H Lactic Acid Calcium Phosphorus Magnesium AST ALT Lactate Dehydrogenase Total Bilirubin CK-MB (CK-2) C-Reactive Protein NT-Pro-B Natriuret Pep Total Protein Albumin Arterial Blood Glucose Urine WBC (Auto) Urine Creatinine 01/13/20 01/14/20 01/14/20 20:40 00:10 05:33 WBC RBC Hgb Hct MCHC RDW MCV MCH Lymph % (Auto) [place] % (Auto) [place] # Eos # Lymph # (Auto) [place] # (Auto) Eos # (Auto) Seg Neutrophils % Seg Neuts % (Manual) Baso # (Auto) Lymphocytes % (Manual) Monocytes % (Manual) Eosinophils % (Manual) Basophils % (Manual) Seg Neutrophils # Seg Neutrophils # Man Lymphocytes # (Manual) Monocytes # (Manual) Eosinophils # (Manual) Nucleated RBC % Basophils # (Manual) PT INR APTT Heparin Anti-Xa Level ABG pH POC ABG pO2 ABG pO2 65.3 L ABG HCO3 31.8 H ABG O2 Saturation 93.5 L ABG Base Excess 6.7 H POC ABG pCO2 ABG Hemoglobin 13.3 L ABG Oxyhemoglobin ABG Glucose Oxyhemoglobin 90.9 L Sodium Potassium Chloride Carbon Dioxide BUN Creatinine Glucose POC Glucose 111 H 111 H Lactic Acid Calcium Phosphorus Magnesium AST ALT Lactate Dehydrogenase Total Bilirubin CK-MB (CK-2) C-Reactive Protein NT-Pro-B Natriuret Pep Total Protein Albumin Arterial Blood Glucose Urine WBC (Auto) Urine Creatinine 01/14/20 01/14/20 01/14/20 12:10 16:14 16:14 WBC RBC Hgb 10.6 L Hct 34.2 L MCHC 31 L RDW 18.3 H MCV 83 L MCH 26 L Lymph % (Auto) [place] % (Auto) 7.4 H [place] # Eos # Lymph # (Auto) [place] # (Auto) Eos # (Auto) Seg Neutrophils % 71.9 H Seg Neuts % (Manual) Baso # (Auto) Lymphocytes % (Manual) Monocytes % (Manual) Eosinophils % (Manual) Basophils % (Manual) Seg Neutrophils # Seg Neutrophils # Man Lymphocytes # (Manual) Monocytes # (Manual) Eosinophils # (Manual) Nucleated RBC % Basophils # (Manual) PT INR APTT Heparin Anti-Xa Level ABG pH POC ABG pO2 ABG pO2 ABG HCO3 ABG O2 Saturation ABG Base Excess POC ABG pCO2 ABG Hemoglobin ABG Oxyhemoglobin ABG Glucose Oxyhemoglobin Sodium Potassium Chloride Carbon Dioxide 31 H BUN Creatinine 0.6 L Glucose 131 H POC Glucose 139 H Lactic Acid Calcium Phosphorus Magnesium AST ALT Lactate Dehydrogenase Total Bilirubin CK-MB (CK-2) C-Reactive Protein NT-Pro-B Natriuret Pep Total Protein Albumin Arterial Blood Glucose Urine WBC (Auto) Urine Creatinine 01/14/20 01/15/20 01/15/20 18:05 00:52 05:35 WBC RBC Hgb Hct MCHC RDW MCV MCH Lymph % (Auto) [place] % (Auto) [place] # Eos # Lymph # (Auto) [place] # (Auto) Eos # (Auto) Seg Neutrophils % Seg Neuts % (Manual) Baso # (Auto) Lymphocytes % (Manual) Monocytes % (Manual) Eosinophils % (Manual) Basophils % (Manual) Seg Neutrophils # Seg Neutrophils # Man Lymphocytes # (Manual) Monocytes # (Manual) Eosinophils # (Manual) Nucleated RBC % Basophils # (Manual) PT INR APTT Heparin Anti-Xa Level ABG pH POC ABG pO2 ABG pO2 ABG HCO3 ABG O2 Saturation ABG Base Excess POC ABG pCO2 ABG Hemoglobin ABG Oxyhemoglobin ABG Glucose Oxyhemoglobin Sodium Potassium Chloride Carbon Dioxide BUN Creatinine Glucose POC Glucose 147 H 140 H 159 H Lactic Acid Calcium Phosphorus Magnesium AST ALT Lactate Dehydrogenase Total Bilirubin CK-MB (CK-2) C-Reactive Protein NT-Pro-B Natriuret Pep Total Protein Albumin Arterial Blood Glucose Urine WBC (Auto) Urine Creatinine 01/15/20 01/15/20 01/16/20 12:52 17:43 00:32 WBC RBC Hgb Hct MCHC RDW MCV MCH Lymph % (Auto) [place] % (Auto) [place] # Eos # Lymph # (Auto) [place] # (Auto) Eos # (Auto) Seg Neutrophils % Seg Neuts % (Manual) Baso # (Auto) Lymphocytes % (Manual) Monocytes % (Manual) Eosinophils % (Manual) Basophils % (Manual) Seg Neutrophils # Seg Neutrophils # Man Lymphocytes # (Manual) Monocytes # (Manual) Eosinophils # (Manual) Nucleated RBC % Basophils # (Manual) PT INR APTT Heparin Anti-Xa Level ABG pH POC ABG pO2 ABG pO2 ABG HCO3 ABG O2 Saturation ABG Base Excess POC ABG pCO2 ABG Hemoglobin ABG Oxyhemoglobin ABG Glucose Oxyhemoglobin Sodium Potassium Chloride Carbon Dioxide BUN Creatinine Glucose POC Glucose 164 H 167 H 153 H Lactic Acid Calcium Phosphorus Magnesium AST ALT Lactate Dehydrogenase Total Bilirubin CK-MB (CK-2) C-Reactive Protein NT-Pro-B Natriuret Pep Total Protein Albumin Arterial Blood Glucose Urine WBC (Auto) Urine Creatinine 01/16/20 01/16/20 01/17/20 05:46 11:48 06:38 WBC RBC Hgb Hct MCHC RDW MCV MCH Lymph % (Auto) [place] % (Auto) [place] # Eos # Lymph # (Auto) [place] # (Auto) Eos # (Auto) Seg Neutrophils % Seg Neuts % (Manual) Baso # (Auto) Lymphocytes % (Manual) Monocytes % (Manual) Eosinophils % (Manual) Basophils % (Manual) Seg Neutrophils # Seg Neutrophils # Man Lymphocytes # (Manual) Monocytes # (Manual) Eosinophils # (Manual) Nucleated RBC % Basophils # (Manual) PT INR APTT Heparin Anti-Xa Level ABG pH POC ABG pO2 ABG pO2 ABG HCO3 ABG O2 Saturation ABG Base Excess POC ABG pCO2 ABG Hemoglobin ABG Oxyhemoglobin ABG Glucose Oxyhemoglobin Sodium Potassium Chloride Carbon Dioxide BUN Creatinine Glucose POC Glucose 163 H 155 H 116 H Lactic Acid Calcium Phosphorus Magnesium AST ALT Lactate Dehydrogenase Total Bilirubin CK-MB (CK-2) C-Reactive Protein NT-Pro-B Natriuret Pep Total Protein Albumin Arterial Blood Glucose Urine WBC (Auto) Urine Creatinine 01/17/20 01/17/20 01/18/20 11:36 17:43 00:12 WBC RBC Hgb Hct MCHC RDW MCV MCH Lymph % (Auto) [place] % (Auto) [place] # Eos # Lymph # (Auto) [place] # (Auto) Eos # (Auto) Seg Neutrophils % Seg Neuts % (Manual) Baso # (Auto) Lymphocytes % (Manual) Monocytes % (Manual) Eosinophils % (Manual) Basophils % (Manual) Seg Neutrophils # Seg Neutrophils # Man Lymphocytes # (Manual) Monocytes # (Manual) Eosinophils # (Manual) Nucleated RBC % Basophils # (Manual) PT INR APTT Heparin Anti-Xa Level ABG pH POC ABG pO2 ABG pO2 ABG HCO3 ABG O2 Saturation ABG Base Excess POC ABG pCO2 ABG Hemoglobin ABG Oxyhemoglobin ABG Glucose Oxyhemoglobin Sodium Potassium Chloride Carbon Dioxide BUN Creatinine Glucose POC Glucose 110 H 134 H 108 H Lactic Acid Calcium Phosphorus Magnesium AST ALT Lactate Dehydrogenase Total Bilirubin CK-MB (CK-2) C-Reactive Protein NT-Pro-B Natriuret Pep Total Protein Albumin Arterial Blood Glucose Urine WBC (Auto) Urine Creatinine 01/18/20 01/18/20 01/18/20 05:37 06:46 06:46 WBC RBC Hgb 10.1 L Hct 32.2 L MCHC 31 L RDW 18.1 H MCV 81 L MCH 25 L Lymph % (Auto) [place] % (Auto) [place] # Eos # Lymph # (Auto) [place] # (Auto) Eos # (Auto) Seg Neutrophils % 71.9 H Seg Neuts % (Manual) Baso # (Auto) Lymphocytes % (Manual) Monocytes % (Manual) Eosinophils % (Manual) Basophils % (Manual) Seg Neutrophils # Seg Neutrophils # Man Lymphocytes # (Manual) Monocytes # (Manual) Eosinophils # (Manual) Nucleated RBC % Basophils # (Manual) PT INR APTT Heparin Anti-Xa Level ABG pH POC ABG pO2 ABG pO2 ABG HCO3 ABG O2 Saturation ABG Base Excess POC ABG pCO2 ABG Hemoglobin ABG Oxyhemoglobin ABG Glucose Oxyhemoglobin Sodium Potassium Chloride Carbon Dioxide BUN Creatinine 0.7 L Glucose 155 H POC Glucose 168 H Lactic Acid Calcium Phosphorus Magnesium AST ALT Lactate Dehydrogenase Total Bilirubin CK-MB (CK-2) C-Reactive Protein NT-Pro-B Natriuret Pep Total Protein Albumin Arterial Blood Glucose Urine WBC (Auto) Urine Creatinine 01/18/20 01/18/20 01/18/20 12:05 17:14 23:28 WBC RBC Hgb Hct MCHC RDW MCV MCH Lymph % (Auto) [place] % (Auto) [place] # Eos # Lymph # (Auto) [place] # (Auto) Eos # (Auto) Seg Neutrophils % Seg Neuts % (Manual) Baso # (Auto) Lymphocytes % (Manual) Monocytes % (Manual) Eosinophils % (Manual) Basophils % (Manual) Seg Neutrophils # Seg Neutrophils # Man Lymphocytes # (Manual) Monocytes # (Manual) Eosinophils # (Manual) Nucleated RBC % Basophils # (Manual) PT INR APTT Heparin Anti-Xa Level ABG pH POC ABG pO2 ABG pO2 ABG HCO3 ABG O2 Saturation ABG Base Excess POC ABG pCO2 ABG Hemoglobin ABG Oxyhemoglobin ABG Glucose Oxyhemoglobin Sodium Potassium Chloride Carbon Dioxide BUN Creatinine Glucose POC Glucose 128 H 126 H 128 H Lactic Acid Calcium Phosphorus Magnesium AST ALT Lactate Dehydrogenase Total Bilirubin CK-MB (CK-2) C-Reactive Protein NT-Pro-B Natriuret Pep Total Protein Albumin Arterial Blood Glucose Urine WBC (Auto) Urine Creatinine 01/19/20 01/19/20 01/19/20 05:39 12:33 17:36 WBC RBC Hgb Hct MCHC RDW MCV MCH Lymph % (Auto) [place] % (Auto) [place] # Eos # Lymph # (Auto) [place] # (Auto) Eos # (Auto) Seg Neutrophils % Seg Neuts % (Manual) Baso # (Auto) Lymphocytes % (Manual) Monocytes % (Manual) Eosinophils % (Manual) Basophils % (Manual) Seg Neutrophils # Seg Neutrophils # Man Lymphocytes # (Manual) Monocytes # (Manual) Eosinophils # (Manual) Nucleated RBC % Basophils # (Manual) PT INR APTT Heparin Anti-Xa Level ABG pH POC ABG pO2 ABG pO2 ABG HCO3 ABG O2 Saturation ABG Base Excess POC ABG pCO2 ABG Hemoglobin ABG Oxyhemoglobin ABG Glucose Oxyhemoglobin Sodium Potassium Chloride Carbon Dioxide BUN Creatinine Glucose POC Glucose 164 H 171 H 152 H Lactic Acid Calcium Phosphorus Magnesium AST ALT Lactate Dehydrogenase Total Bilirubin CK-MB (CK-2) C-Reactive Protein NT-Pro-B Natriuret Pep Total Protein Albumin Arterial Blood Glucose Urine WBC (Auto) Urine Creatinine 01/20/20 01/20/20 01/20/20 00:12 05:20 05:35 WBC RBC Hgb 9.2 L Hct 29.4 L MCHC 31 L RDW 17.9 H MCV 81 L MCH 25 L Lymph % (Auto) [place] % (Auto) [place] # Eos # Lymph # (Auto) [place] # (Auto) Eos # (Auto) Seg Neutrophils % Seg Neuts % (Manual) Baso # (Auto) Lymphocytes % (Manual) Monocytes % (Manual) Eosinophils % (Manual) Basophils % (Manual) Seg Neutrophils # Seg Neutrophils # Man Lymphocytes # (Manual) Monocytes # (Manual) Eosinophils # (Manual) Nucleated RBC % Basophils # (Manual) PT INR APTT Heparin Anti-Xa Level ABG pH POC ABG pO2 ABG pO2 ABG HCO3 ABG O2 Saturation ABG Base Excess POC ABG pCO2 ABG Hemoglobin ABG Oxyhemoglobin ABG Glucose Oxyhemoglobin Sodium Potassium Chloride Carbon Dioxide BUN Creatinine Glucose POC Glucose 120 H 136 H Lactic Acid Calcium Phosphorus Magnesium AST ALT Lactate Dehydrogenase Total Bilirubin CK-MB (CK-2) C-Reactive Protein NT-Pro-B Natriuret Pep Total Protein Albumin Arterial Blood Glucose Urine WBC (Auto) Urine Creatinine 01/20/20 01/20/20 01/20/20 05:40 11:58 14:55 WBC RBC Hgb 9.0 L Hct 28.3 L MCHC RDW MCV MCH Lymph % (Auto) [place] % (Auto) [place] # Eos # Lymph # (Auto) [place] # (Auto) Eos # (Auto) Seg Neutrophils % Seg Neuts % (Manual) Baso # (Auto) Lymphocytes % (Manual) Monocytes % (Manual) Eosinophils % (Manual) Basophils % (Manual) Seg Neutrophils # Seg Neutrophils # Man Lymphocytes # (Manual) Monocytes # (Manual) Eosinophils # (Manual) Nucleated RBC % Basophils # (Manual) PT INR APTT Heparin Anti-Xa Level ABG pH POC ABG pO2 ABG pO2 ABG HCO3 ABG O2 Saturation ABG Base Excess POC ABG pCO2 ABG Hemoglobin ABG Oxyhemoglobin ABG Glucose Oxyhemoglobin Sodium Potassium Chloride Carbon Dioxide 32 H BUN 22 H Creatinine 0.7 L Glucose 128 H POC Glucose 152 H Lactic Acid Calcium Phosphorus Magnesium AST ALT Lactate Dehydrogenase Total Bilirubin CK-MB (CK-2) C-Reactive Protein NT-Pro-B Natriuret Pep Total Protein Albumin Arterial Blood Glucose Urine WBC (Auto) Urine Creatinine 01/20/20 01/20/20 01/20/20 14:55 18:14 21:35 WBC RBC Hgb Hct MCHC RDW MCV MCH Lymph % (Auto) [place] % (Auto) [place] # Eos # Lymph # (Auto) [place] # (Auto) Eos # (Auto) Seg Neutrophils % Seg Neuts % (Manual) Baso # (Auto) Lymphocytes % (Manual) Monocytes % (Manual) Eosinophils % (Manual) Basophils % (Manual) Seg Neutrophils # Seg Neutrophils # Man Lymphocytes # (Manual) Monocytes # (Manual) Eosinophils # (Manual) Nucleated RBC % Basophils # (Manual) PT 20.4 H INR 1.72 H APTT 40.6 H Heparin Anti-Xa Level > 2.00 H ABG pH POC ABG pO2 ABG pO2 ABG HCO3 ABG O2 Saturation ABG Base Excess POC ABG pCO2 ABG Hemoglobin ABG Oxyhemoglobin ABG Glucose Oxyhemoglobin Sodium Potassium Chloride Carbon Dioxide BUN Creatinine Glucose POC Glucose 150 H Lactic Acid Calcium Phosphorus Magnesium AST ALT Lactate Dehydrogenase Total Bilirubin CK-MB (CK-2) C-Reactive Protein NT-Pro-B Natriuret Pep Total Protein Albumin Arterial Blood Glucose Urine WBC (Auto) Urine Creatinine 01/21/20 01/21/20 01/21/20 00:30 05:47 05:59 WBC RBC Hgb Hct MCHC RDW MCV MCH Lymph % (Auto) [place] % (Auto) [place] # Eos # Lymph # (Auto) [place] # (Auto) Eos # (Auto) Seg Neutrophils % Seg Neuts % (Manual) Baso # (Auto) Lymphocytes % (Manual) Monocytes % (Manual) Eosinophils % (Manual) Basophils % (Manual) Seg Neutrophils # Seg Neutrophils # Man Lymphocytes # (Manual) Monocytes # (Manual) Eosinophils # (Manual) Nucleated RBC % Basophils # (Manual) PT INR APTT Heparin Anti-Xa Level 1.93 H ABG pH POC ABG pO2 ABG pO2 ABG HCO3 ABG O2 Saturation ABG Base Excess POC ABG pCO2 ABG Hemoglobin ABG Oxyhemoglobin ABG Glucose Oxyhemoglobin Sodium Potassium Chloride Carbon Dioxide BUN Creatinine Glucose POC Glucose 126 H 148 H Lactic Acid Calcium Phosphorus Magnesium AST ALT Lactate Dehydrogenase Total Bilirubin CK-MB (CK-2) C-Reactive Protein NT-Pro-B Natriuret Pep Total Protein Albumin Arterial Blood Glucose Urine WBC (Auto) Urine Creatinine 01/21/20 01/21/20 01/21/20 12:32 18:20 23:54 WBC RBC Hgb Hct MCHC RDW MCV MCH Lymph % (Auto) [place] % (Auto) [place] # Eos # Lymph # (Auto) [place] # (Auto) Eos # (Auto) Seg Neutrophils % Seg Neuts % (Manual) Baso # (Auto) Lymphocytes % (Manual) Monocytes % (Manual) Eosinophils % (Manual) Basophils % (Manual) Seg Neutrophils # Seg Neutrophils # Man Lymphocytes # (Manual) Monocytes # (Manual) Eosinophils # (Manual) Nucleated RBC % Basophils # (Manual) PT INR APTT Heparin Anti-Xa Level 1.28 H ABG pH POC ABG pO2 ABG pO2 ABG HCO3 ABG O2 Saturation ABG Base Excess POC ABG pCO2 ABG Hemoglobin ABG Oxyhemoglobin ABG Glucose Oxyhemoglobin Sodium Potassium Chloride Carbon Dioxide BUN Creatinine Glucose POC Glucose 112 H 146 H Lactic Acid Calcium Phosphorus Magnesium AST ALT Lactate Dehydrogenase Total Bilirubin CK-MB (CK-2) C-Reactive Protein NT-Pro-B Natriuret Pep Total Protein Albumin Arterial Blood Glucose Urine WBC (Auto) Urine Creatinine 01/22/20 01/22/20 01/22/20 04:45 04:45 05:48 WBC RBC Hgb 9.3 L Hct 29.0 L MCHC RDW MCV MCH Lymph % (Auto) [place] % (Auto) [place] # Eos # Lymph # (Auto) [place] # (Auto) Eos # (Auto) Seg Neutrophils % Seg Neuts % (Manual) Baso # (Auto) Lymphocytes % (Manual) Monocytes % (Manual) Eosinophils % (Manual) Basophils % (Manual) Seg Neutrophils # Seg Neutrophils # Man Lymphocytes # (Manual) Monocytes # (Manual) Eosinophils # (Manual) Nucleated RBC % Basophils # (Manual) PT INR APTT Heparin Anti-Xa Level 1.34 H ABG pH POC ABG pO2 ABG pO2 ABG HCO3 ABG O2 Saturation ABG Base Excess POC ABG pCO2 ABG Hemoglobin ABG Oxyhemoglobin ABG Glucose Oxyhemoglobin Sodium Potassium Chloride Carbon Dioxide BUN Creatinine Glucose POC Glucose 142 H Lactic Acid Calcium Phosphorus Magnesium AST ALT Lactate Dehydrogenase Total Bilirubin CK-MB (CK-2) C-Reactive Protein NT-Pro-B Natriuret Pep Total Protein Albumin Arterial Blood Glucose Urine WBC (Auto) Urine Creatinine 01/22/20 01/22/20 01/22/20 08:09 08:22 09:58 WBC RBC Hgb Hct MCHC RDW MCV MCH Lymph % (Auto) [place] % (Auto) [place] # Eos # Lymph # (Auto) [place] # (Auto) Eos # (Auto) Seg Neutrophils % Seg Neuts % (Manual) Baso # (Auto) Lymphocytes % (Manual) Monocytes % (Manual) Eosinophils % (Manual) Basophils % (Manual) Seg Neutrophils # Seg Neutrophils # Man Lymphocytes # (Manual) Monocytes # (Manual) Eosinophils # (Manual) Nucleated RBC % Basophils # (Manual) PT 16.9 H INR 1.34 H APTT Heparin Anti-Xa Level ABG pH POC ABG pO2 ABG pO2 ABG HCO3 ABG O2 Saturation ABG Base Excess POC ABG pCO2 ABG Hemoglobin ABG Oxyhemoglobin ABG Glucose Oxyhemoglobin Sodium Potassium Chloride 97.8 L Carbon Dioxide BUN 29 H Creatinine Glucose 128 H POC Glucose 131 H Lactic Acid Calcium Phosphorus Magnesium AST ALT Lactate Dehydrogenase Total Bilirubin CK-MB (CK-2) C-Reactive Protein NT-Pro-B Natriuret Pep Total Protein Albumin Arterial Blood Glucose Urine WBC (Auto) Urine Creatinine 01/22/20 01/22/20 01/22/20 12:44 16:13 18:18 WBC RBC Hgb Hct MCHC RDW MCV MCH Lymph % (Auto) [place] % (Auto) [place] # Eos # Lymph # (Auto) [place] # (Auto) Eos # (Auto) Seg Neutrophils % Seg Neuts % (Manual) Baso # (Auto) Lymphocytes % (Manual) Monocytes % (Manual) Eosinophils % (Manual) Basophils % (Manual) Seg Neutrophils # Seg Neutrophils # Man Lymphocytes # (Manual) Monocytes # (Manual) Eosinophils # (Manual) Nucleated RBC % Basophils # (Manual) PT INR APTT Heparin Anti-Xa Level ABG pH POC ABG pO2 ABG pO2 ABG HCO3 ABG O2 Saturation ABG Base Excess POC ABG pCO2 ABG Hemoglobin ABG Oxyhemoglobin ABG Glucose Oxyhemoglobin Sodium Potassium Chloride Carbon Dioxide BUN Creatinine Glucose POC Glucose 156 H 133 H 155 H Lactic Acid Calcium Phosphorus Magnesium AST ALT Lactate Dehydrogenase Total Bilirubin CK-MB (CK-2) C-Reactive Protein NT-Pro-B Natriuret Pep Total Protein Albumin Arterial Blood Glucose Urine WBC (Auto) Urine Creatinine 01/22/20 01/23/20 01/23/20 23:22 05:37 12:59 WBC RBC Hgb Hct MCHC RDW MCV MCH Lymph % (Auto) [place] % (Auto) [place] # Eos # Lymph # (Auto) [place] # (Auto) Eos # (Auto) Seg Neutrophils % Seg Neuts % (Manual) Baso # (Auto) Lymphocytes % (Manual) Monocytes % (Manual) Eosinophils % (Manual) Basophils % (Manual) Seg Neutrophils # Seg Neutrophils # Man Lymphocytes # (Manual) Monocytes # (Manual) Eosinophils # (Manual) Nucleated RBC % Basophils # (Manual) PT INR APTT Heparin Anti-Xa Level ABG pH POC ABG pO2 ABG pO2 ABG HCO3 ABG O2 Saturation ABG Base Excess POC ABG pCO2 ABG Hemoglobin ABG Oxyhemoglobin ABG Glucose Oxyhemoglobin Sodium Potassium Chloride Carbon Dioxide BUN Creatinine Glucose POC Glucose 148 H 163 H 175 H Lactic Acid Calcium Phosphorus Magnesium AST ALT Lactate Dehydrogenase Total Bilirubin CK-MB (CK-2) C-Reactive Protein NT-Pro-B Natriuret Pep Total Protein Albumin Arterial Blood Glucose Urine WBC (Auto) Urine Creatinine 01/23/20 01/23/20 01/24/20 17:28 23:56 04:30 WBC RBC 3.46 L Hgb 8.8 L Hct 27.8 L MCHC RDW 18.2 H MCV 81 L MCH 25 L Lymph % (Auto) [place] % (Auto) 7.8 H [place] # Eos # Lymph # (Auto) [place] # (Auto) Eos # (Auto) Seg Neutrophils % Seg Neuts % (Manual) Baso # (Auto) Lymphocytes % (Manual) Monocytes % (Manual) Eosinophils % (Manual) Basophils % (Manual) Seg Neutrophils # Seg Neutrophils # Man Lymphocytes # (Manual) Monocytes # (Manual) Eosinophils # (Manual) Nucleated RBC % Basophils # (Manual) PT INR APTT Heparin Anti-Xa Level ABG pH POC ABG pO2 ABG pO2 ABG HCO3 ABG O2 Saturation ABG Base Excess POC ABG pCO2 ABG Hemoglobin ABG Oxyhemoglobin ABG Glucose Oxyhemoglobin Sodium Potassium Chloride Carbon Dioxide BUN Creatinine Glucose POC Glucose 165 H 177 H Lactic Acid Calcium Phosphorus Magnesium AST ALT Lactate Dehydrogenase Total Bilirubin CK-MB (CK-2) C-Reactive Protein NT-Pro-B Natriuret Pep Total Protein Albumin Arterial Blood Glucose Urine WBC (Auto) Urine Creatinine 01/24/20 01/24/20 01/24/20 04:30 07:18 12:06 WBC RBC Hgb Hct MCHC RDW MCV MCH Lymph % (Auto) [place] % (Auto) [place] # Eos # Lymph # (Auto) [place] # (Auto) Eos # (Auto) Seg Neutrophils % Seg Neuts % (Manual) Baso # (Auto) Lymphocytes % (Manual) Monocytes % (Manual) Eosinophils % (Manual) Basophils % (Manual) Seg Neutrophils # Seg Neutrophils # Man Lymphocytes # (Manual) Monocytes # (Manual) Eosinophils # (Manual) Nucleated RBC % Basophils # (Manual) PT INR APTT Heparin Anti-Xa Level ABG pH POC ABG pO2 ABG pO2 ABG HCO3 ABG O2 Saturation ABG Base Excess POC ABG pCO2 ABG Hemoglobin ABG Oxyhemoglobin ABG Glucose Oxyhemoglobin Sodium Potassium Chloride 97.9 L Carbon Dioxide BUN 31 H Creatinine Glucose 146 H POC Glucose 151 H 133 H Lactic Acid Calcium Phosphorus Magnesium AST ALT Lactate Dehydrogenase Total Bilirubin CK-MB (CK-2) C-Reactive Protein NT-Pro-B Natriuret Pep Total Protein Albumin Arterial Blood Glucose Urine WBC (Auto) Urine Creatinine 01/24/20 01/25/20 01/25/20 17:36 00:08 04:25 WBC RBC 3.50 L Hgb 8.7 L Hct 27.9 L MCHC 31 L RDW 18.2 H MCV 80 L MCH 25 L Lymph % (Auto) [place] % (Auto) 8.5 H [place] # Eos # Lymph # (Auto) [place] # (Auto) Eos # (Auto) Seg Neutrophils % Seg Neuts % (Manual) Baso # (Auto) Lymphocytes % (Manual) Monocytes % (Manual) Eosinophils % (Manual) Basophils % (Manual) Seg Neutrophils # Seg Neutrophils # Man Lymphocytes # (Manual) Monocytes # (Manual) Eosinophils # (Manual) Nucleated RBC % Basophils # (Manual) PT INR APTT Heparin Anti-Xa Level ABG pH POC ABG pO2 ABG pO2 ABG HCO3 ABG O2 Saturation ABG Base Excess POC ABG pCO2 ABG Hemoglobin ABG Oxyhemoglobin ABG Glucose Oxyhemoglobin Sodium Potassium Chloride Carbon Dioxide BUN Creatinine Glucose POC Glucose 133 H 129 H Lactic Acid Calcium Phosphorus Magnesium AST ALT Lactate Dehydrogenase Total Bilirubin CK-MB (CK-2) C-Reactive Protein NT-Pro-B Natriuret Pep Total Protein Albumin Arterial Blood Glucose Urine WBC (Auto) Urine Creatinine 01/25/20 01/25/20 01/25/20 04:25 05:38 11:52 WBC RBC Hgb Hct MCHC RDW MCV MCH Lymph % (Auto) [place] % (Auto) [place] # Eos # Lymph # (Auto) [place] # (Auto) Eos # (Auto) Seg Neutrophils % Seg Neuts % (Manual) Baso # (Auto) Lymphocytes % (Manual) Monocytes % (Manual) Eosinophils % (Manual) Basophils % (Manual) Seg Neutrophils # Seg Neutrophils # Man Lymphocytes # (Manual) Monocytes # (Manual) Eosinophils # (Manual) Nucleated RBC % Basophils # (Manual) PT INR APTT Heparin Anti-Xa Level ABG pH POC ABG pO2 ABG pO2 ABG HCO3 ABG O2 Saturation ABG Base Excess POC ABG pCO2 ABG Hemoglobin ABG Oxyhemoglobin ABG Glucose Oxyhemoglobin Sodium Potassium Chloride Carbon Dioxide BUN 30 H Creatinine Glucose 134 H POC Glucose 129 H 134 H Lactic Acid Calcium Phosphorus Magnesium AST ALT Lactate Dehydrogenase Total Bilirubin CK-MB (CK-2) C-Reactive Protein NT-Pro-B Natriuret Pep Total Protein Albumin Arterial Blood Glucose Urine WBC (Auto) Urine Creatinine 01/25/20 01/25/20 01/26/20 17:13 21:02 00:59 WBC RBC Hgb Hct MCHC RDW MCV MCH Lymph % (Auto) [place] % (Auto) [place] # Eos # Lymph # (Auto) [place] # (Auto) Eos # (Auto) Seg Neutrophils % Seg Neuts % (Manual) Baso # (Auto) Lymphocytes % (Manual) Monocytes % (Manual) Eosinophils % (Manual) Basophils % (Manual) Seg Neutrophils # Seg Neutrophils # Man Lymphocytes # (Manual) Monocytes # (Manual) Eosinophils # (Manual) Nucleated RBC % Basophils # (Manual) PT INR APTT Heparin Anti-Xa Level ABG pH POC ABG pO2 ABG pO2 57.5 L ABG HCO3 31.7 H ABG O2 Saturation 90.3 L ABG Base Excess 6.6 H POC ABG pCO2 ABG Hemoglobin 13.0 L ABG Oxyhemoglobin ABG Glucose Oxyhemoglobin 87.5 L Sodium Potassium Chloride Carbon Dioxide BUN Creatinine Glucose POC Glucose 124 H 196 H Lactic Acid Calcium Phosphorus Magnesium AST ALT Lactate Dehydrogenase Total Bilirubin CK-MB (CK-2) C-Reactive Protein NT-Pro-B Natriuret Pep Total Protein Albumin Arterial Blood Glucose Urine WBC (Auto) Urine Creatinine 01/26/20 01/26/20 01/26/20 03:20 05:46 12:46 WBC RBC Hgb 9.2 L Hct 29.4 L MCHC RDW MCV MCH Lymph % (Auto) [place] % (Auto) [place] # Eos # Lymph # (Auto) [place] # (Auto) Eos # (Auto) Seg Neutrophils % Seg Neuts % (Manual) Baso # (Auto) Lymphocytes % (Manual) Monocytes % (Manual) Eosinophils % (Manual) Basophils % (Manual) Seg Neutrophils # Seg Neutrophils # Man Lymphocytes # (Manual) Monocytes # (Manual) Eosinophils # (Manual) Nucleated RBC % Basophils # (Manual) PT INR APTT Heparin Anti-Xa Level ABG pH POC ABG pO2 ABG pO2 ABG HCO3 ABG O2 Saturation ABG Base Excess POC ABG pCO2 ABG Hemoglobin ABG Oxyhemoglobin ABG Glucose Oxyhemoglobin Sodium Potassium Chloride Carbon Dioxide BUN Creatinine Glucose POC Glucose 141 H 122 H Lactic Acid Calcium Phosphorus Magnesium AST ALT Lactate Dehydrogenase Total Bilirubin CK-MB (CK-2) C-Reactive Protein NT-Pro-B Natriuret Pep Total Protein Albumin Arterial Blood Glucose Urine WBC (Auto) Urine Creatinine 01/26/20 01/26/20 01/27/20 18:03 23:55 04:47 WBC RBC Hgb Hct MCHC RDW MCV MCH Lymph % (Auto) [place] % (Auto) [place] # Eos # Lymph # (Auto) [place] # (Auto) Eos # (Auto) Seg Neutrophils % Seg Neuts % (Manual) Baso # (Auto) Lymphocytes % (Manual) Monocytes % (Manual) Eosinophils % (Manual) Basophils % (Manual) Seg Neutrophils # Seg Neutrophils # Man Lymphocytes # (Manual) Monocytes # (Manual) Eosinophils # (Manual) Nucleated RBC % Basophils # (Manual) PT INR APTT Heparin Anti-Xa Level ABG pH POC ABG pO2 ABG pO2 ABG HCO3 ABG O2 Saturation ABG Base Excess POC ABG pCO2 ABG Hemoglobin ABG Oxyhemoglobin ABG Glucose Oxyhemoglobin Sodium Potassium Chloride Carbon Dioxide BUN 30 H Creatinine 0.7 L Glucose 135 H POC Glucose 142 H 159 H Lactic Acid Calcium Phosphorus Magnesium AST ALT Lactate Dehydrogenase Total Bilirubin CK-MB (CK-2) C-Reactive Protein NT-Pro-B Natriuret Pep Total Protein Albumin Arterial Blood Glucose Urine WBC (Auto) Urine Creatinine 01/27/20 01/27/20 01/27/20 05:43 12:06 17:16 WBC RBC Hgb Hct MCHC RDW MCV MCH Lymph % (Auto) [place] % (Auto) [place] # Eos # Lymph # (Auto) [place] # (Auto) Eos # (Auto) Seg Neutrophils % Seg Neuts % (Manual) Baso # (Auto) Lymphocytes % (Manual) Monocytes % (Manual) Eosinophils % (Manual) Basophils % (Manual) Seg Neutrophils # Seg Neutrophils # Man Lymphocytes # (Manual) Monocytes # (Manual) Eosinophils # (Manual) Nucleated RBC % Basophils # (Manual) PT INR APTT Heparin Anti-Xa Level ABG pH POC ABG pO2 ABG pO2 ABG HCO3 ABG O2 Saturation ABG Base Excess POC ABG pCO2 ABG Hemoglobin ABG Oxyhemoglobin ABG Glucose Oxyhemoglobin Sodium Potassium Chloride Carbon Dioxide BUN Creatinine Glucose POC Glucose 143 H 142 H 128 H Lactic Acid Calcium Phosphorus Magnesium AST ALT Lactate Dehydrogenase Total Bilirubin CK-MB (CK-2) C-Reactive Protein NT-Pro-B Natriuret Pep Total Protein Albumin Arterial Blood Glucose Urine WBC (Auto) Urine Creatinine 01/27/20 01/28/20 01/28/20 23:55 04:37 05:55 WBC RBC Hgb 9.4 L Hct 29.9 L MCHC RDW MCV MCH Lymph % (Auto) [place] % (Auto) [place] # Eos # Lymph # (Auto) [place] # (Auto) Eos # (Auto) Seg Neutrophils % Seg Neuts % (Manual) Baso # (Auto) Lymphocytes % (Manual) Monocytes % (Manual) Eosinophils % (Manual) Basophils % (Manual) Seg Neutrophils # Seg Neutrophils # Man Lymphocytes # (Manual) Monocytes # (Manual) Eosinophils # (Manual) Nucleated RBC % Basophils # (Manual) PT INR APTT Heparin Anti-Xa Level ABG pH POC ABG pO2 ABG pO2 ABG HCO3 ABG O2 Saturation ABG Base Excess POC ABG pCO2 ABG Hemoglobin ABG Oxyhemoglobin ABG Glucose Oxyhemoglobin Sodium Potassium Chloride Carbon Dioxide BUN Creatinine Glucose POC Glucose 166 H 169 H Lactic Acid Calcium Phosphorus Magnesium AST ALT Lactate Dehydrogenase Total Bilirubin CK-MB (CK-2) C-Reactive Protein NT-Pro-B Natriuret Pep Total Protein Albumin Arterial Blood Glucose Urine WBC (Auto) Urine Creatinine 01/28/20 01/28/20 01/28/20 11:58 17:26 23:46 WBC RBC Hgb Hct MCHC RDW MCV MCH Lymph % (Auto) [place] % (Auto) [place] # Eos # Lymph # (Auto) [place] # (Auto) Eos # (Auto) Seg Neutrophils % Seg Neuts % (Manual) Baso # (Auto) Lymphocytes % (Manual) Monocytes % (Manual) Eosinophils % (Manual) Basophils % (Manual) Seg Neutrophils # Seg Neutrophils # Man Lymphocytes # (Manual) Monocytes # (Manual) Eosinophils # (Manual) Nucleated RBC % Basophils # (Manual) PT INR APTT Heparin Anti-Xa Level ABG pH POC ABG pO2 ABG pO2 ABG HCO3 ABG O2 Saturation ABG Base Excess POC ABG pCO2 ABG Hemoglobin ABG Oxyhemoglobin ABG Glucose Oxyhemoglobin Sodium Potassium Chloride Carbon Dioxide BUN Creatinine Glucose POC Glucose 130 H 126 H 150 H Lactic Acid Calcium Phosphorus Magnesium AST ALT Lactate Dehydrogenase Total Bilirubin CK-MB (CK-2) C-Reactive Protein NT-Pro-B Natriuret Pep Total Protein Albumin Arterial Blood Glucose Urine WBC (Auto) Urine Creatinine 01/29/20 01/29/20 01/29/20 04:55 06:00 12:28 WBC RBC Hgb Hct MCHC RDW MCV MCH Lymph % (Auto) [place] % (Auto) [place] # Eos # Lymph # (Auto) [place] # (Auto) Eos # (Auto) Seg Neutrophils % Seg Neuts % (Manual) Baso # (Auto) Lymphocytes % (Manual) Monocytes % (Manual) Eosinophils % (Manual) Basophils % (Manual) Seg Neutrophils # Seg Neutrophils # Man Lymphocytes # (Manual) Monocytes # (Manual) Eosinophils # (Manual) Nucleated RBC % Basophils # (Manual) PT INR APTT Heparin Anti-Xa Level ABG pH POC ABG pO2 ABG pO2 ABG HCO3 ABG O2 Saturation ABG Base Excess POC ABG pCO2 ABG Hemoglobin ABG Oxyhemoglobin ABG Glucose Oxyhemoglobin Sodium Potassium Chloride Carbon Dioxide 34 H BUN Creatinine 0.6 L Glucose 152 H POC Glucose 157 H 156 H Lactic Acid Calcium Phosphorus Magnesium AST ALT Lactate Dehydrogenase Total Bilirubin CK-MB (CK-2) C-Reactive Protein NT-Pro-B Natriuret Pep Total Protein Albumin Arterial Blood Glucose Urine WBC (Auto) Urine Creatinine 01/29/20 01/30/20 01/30/20 19:06 00:29 05:39 WBC RBC Hgb Hct MCHC RDW MCV MCH Lymph % (Auto) [place] % (Auto) [place] # Eos # Lymph # (Auto) [place] # (Auto) Eos # (Auto) Seg Neutrophils % Seg Neuts % (Manual) Baso # (Auto) Lymphocytes % (Manual) Monocytes % (Manual) Eosinophils % (Manual) Basophils % (Manual) Seg Neutrophils # Seg Neutrophils # Man Lymphocytes # (Manual) Monocytes # (Manual) Eosinophils # (Manual) Nucleated RBC % Basophils # (Manual) PT INR APTT Heparin Anti-Xa Level ABG pH POC ABG pO2 ABG pO2 ABG HCO3 ABG O2 Saturation ABG Base Excess POC ABG pCO2 ABG Hemoglobin ABG Oxyhemoglobin ABG Glucose Oxyhemoglobin Sodium Potassium Chloride Carbon Dioxide BUN Creatinine Glucose POC Glucose 152 H 132 H 159 H Lactic Acid Calcium Phosphorus Magnesium AST ALT Lactate Dehydrogenase Total Bilirubin CK-MB (CK-2) C-Reactive Protein NT-Pro-B Natriuret Pep Total Protein Albumin Arterial Blood Glucose Urine WBC (Auto) Urine Creatinine 01/30/20 01/30/20 01/30/20 12:27 17:42 23:28 WBC RBC Hgb Hct MCHC RDW MCV MCH Lymph % (Auto) [place] % (Auto) [place] # Eos # Lymph # (Auto) [place] # (Auto) Eos # (Auto) Seg Neutrophils % Seg Neuts % (Manual) Baso # (Auto) Lymphocytes % (Manual) Monocytes % (Manual) Eosinophils % (Manual) Basophils % (Manual) Seg Neutrophils # Seg Neutrophils # Man Lymphocytes # (Manual) Monocytes # (Manual) Eosinophils # (Manual) Nucleated RBC % Basophils # (Manual) PT INR APTT Heparin Anti-Xa Level ABG pH POC ABG pO2 ABG pO2 ABG HCO3 ABG O2 Saturation ABG Base Excess POC ABG pCO2 ABG Hemoglobin ABG Oxyhemoglobin ABG Glucose Oxyhemoglobin Sodium Potassium Chloride Carbon Dioxide BUN Creatinine Glucose POC Glucose 151 H 144 H 164 H Lactic Acid Calcium Phosphorus Magnesium AST ALT Lactate Dehydrogenase Total Bilirubin CK-MB (CK-2) C-Reactive Protein NT-Pro-B Natriuret Pep Total Protein Albumin Arterial Blood Glucose Urine WBC (Auto) Urine Creatinine 01/31/20 01/31/20 01/31/20 05:51 11:51 18:06 WBC RBC Hgb Hct MCHC RDW MCV MCH Lymph % (Auto) [place] % (Auto) [place] # Eos # Lymph # (Auto) [place] # (Auto) Eos # (Auto) Seg Neutrophils % Seg Neuts % (Manual) Baso # (Auto) Lymphocytes % (Manual) Monocytes % (Manual) Eosinophils % (Manual) Basophils % (Manual) Seg Neutrophils # Seg Neutrophils # Man Lymphocytes # (Manual) Monocytes # (Manual) Eosinophils # (Manual) Nucleated RBC % Basophils # (Manual) PT INR APTT Heparin Anti-Xa Level ABG pH POC ABG pO2 ABG pO2 ABG HCO3 ABG O2 Saturation ABG Base Excess POC ABG pCO2 ABG Hemoglobin ABG Oxyhemoglobin ABG Glucose Oxyhemoglobin Sodium Potassium Chloride Carbon Dioxide BUN Creatinine Glucose POC Glucose 131 H 167 H 210 H Lactic Acid Calcium Phosphorus Magnesium AST ALT Lactate Dehydrogenase Total Bilirubin CK-MB (CK-2) C-Reactive Protein NT-Pro-B Natriuret Pep Total Protein Albumin Arterial Blood Glucose Urine WBC (Auto) Urine Creatinine 01/31/20 01/31/20 02/01/20 19:24 Unknown 00:34 WBC RBC Hgb Hct MCHC RDW MCV MCH Lymph % (Auto) [place] % (Auto) [place] # Eos # Lymph # (Auto) [place] # (Auto) Eos # (Auto) Seg Neutrophils % Seg Neuts % (Manual) Baso # (Auto) Lymphocytes % (Manual) Monocytes % (Manual) Eosinophils % (Manual) Basophils % (Manual) Seg Neutrophils # Seg Neutrophils # Man Lymphocytes # (Manual) Monocytes # (Manual) Eosinophils # (Manual) Nucleated RBC % Basophils # (Manual) PT INR APTT Heparin Anti-Xa Level ABG pH POC ABG pO2 ABG pO2 ABG HCO3 ABG O2 Saturation ABG Base Excess POC ABG pCO2 ABG Hemoglobin ABG Oxyhemoglobin ABG Glucose Oxyhemoglobin Sodium Potassium Chloride 95.3 L Carbon Dioxide 33 H BUN 36 H Creatinine Glucose 187 H POC Glucose 116 H Lactic Acid Calcium Phosphorus Magnesium AST ALT Lactate Dehydrogenase Total Bilirubin CK-MB (CK-2) C-Reactive Protein NT-Pro-B Natriuret Pep Total Protein Albumin Arterial Blood Glucose Urine WBC (Auto) Urine Creatinine 57.4 H 02/01/20 02/01/20 02/01/20 05:24 10:40 12:29 WBC RBC Hgb Hct MCHC RDW MCV MCH Lymph % (Auto) [place] % (Auto) [place] # Eos # Lymph # (Auto) [place] # (Auto) Eos # (Auto) Seg Neutrophils % Seg Neuts % (Manual) Baso # (Auto) Lymphocytes % (Manual) Monocytes % (Manual) Eosinophils % (Manual) Basophils % (Manual) Seg Neutrophils # Seg Neutrophils # Man Lymphocytes # (Manual) Monocytes # (Manual) Eosinophils # (Manual) Nucleated RBC % Basophils # (Manual) PT INR APTT Heparin Anti-Xa Level ABG pH POC ABG pO2 ABG pO2 ABG HCO3 ABG O2 Saturation ABG Base Excess POC ABG pCO2 ABG Hemoglobin ABG Oxyhemoglobin ABG Glucose Oxyhemoglobin Sodium Potassium Chloride Carbon Dioxide BUN Creatinine Glucose POC Glucose 142 H 165 H 151 H Lactic Acid Calcium Phosphorus Magnesium AST ALT Lactate Dehydrogenase Total Bilirubin CK-MB (CK-2) C-Reactive Protein NT-Pro-B Natriuret Pep Total Protein Albumin Arterial Blood Glucose Urine WBC (Auto) Urine Creatinine 02/01/20 02/01/20 02/02/20 17:16 23:23 06:36 WBC RBC Hgb Hct MCHC RDW MCV MCH Lymph % (Auto) [place] % (Auto) [place] # Eos # Lymph # (Auto) [place] # (Auto) Eos # (Auto) Seg Neutrophils % Seg Neuts % (Manual) Baso # (Auto) Lymphocytes % (Manual) Monocytes % (Manual) Eosinophils % (Manual) Basophils % (Manual) Seg Neutrophils # Seg Neutrophils # Man Lymphocytes # (Manual) Monocytes # (Manual) Eosinophils # (Manual) Nucleated RBC % Basophils # (Manual) PT INR APTT Heparin Anti-Xa Level ABG pH POC ABG pO2 ABG pO2 ABG HCO3 ABG O2 Saturation ABG Base Excess POC ABG pCO2 ABG Hemoglobin ABG Oxyhemoglobin ABG Glucose Oxyhemoglobin Sodium Potassium Chloride Carbon Dioxide BUN Creatinine Glucose POC Glucose 137 H 145 H 181 H Lactic Acid Calcium Phosphorus Magnesium AST ALT Lactate Dehydrogenase Total Bilirubin CK-MB (CK-2) C-Reactive Protein NT-Pro-B Natriuret Pep Total Protein Albumin Arterial Blood Glucose Urine WBC (Auto) Urine Creatinine 02/02/20 02/02/20 02/02/20 10:01 12:05 17:54 WBC RBC Hgb Hct MCHC RDW MCV MCH Lymph % (Auto) [place] % (Auto) [place] # Eos # Lymph # (Auto) [place] # (Auto) Eos # (Auto) Seg Neutrophils % Seg Neuts % (Manual) Baso # (Auto) Lymphocytes % (Manual) Monocytes % (Manual) Eosinophils % (Manual) Basophils % (Manual) Seg Neutrophils # Seg Neutrophils # Man Lymphocytes # (Manual) Monocytes # (Manual) Eosinophils # (Manual) Nucleated RBC % Basophils # (Manual) PT INR APTT Heparin Anti-Xa Level ABG pH POC ABG pO2 ABG pO2 ABG HCO3 ABG O2 Saturation ABG Base Excess POC ABG pCO2 ABG Hemoglobin ABG Oxyhemoglobin ABG Glucose Oxyhemoglobin Sodium Potassium Chloride 95.3 L Carbon Dioxide BUN 44 H Creatinine Glucose 234 H POC Glucose 184 H 127 H Lactic Acid Calcium Phosphorus Magnesium AST 363 H ALT 457 H Lactate Dehydrogenase Total Bilirubin CK-MB (CK-2) C-Reactive Protein NT-Pro-B Natriuret Pep Total Protein Albumin 3.0 L Arterial Blood Glucose Urine WBC (Auto) Urine Creatinine 02/02/20 02/03/20 02/03/20 23:47 05:32 07:04 WBC 13.0 H RBC Hgb 9.5 L Hct 30.8 L MCHC 31 L RDW 19.6 H MCV 81 L MCH 25 L Lymph % (Auto) [place] % (Auto) 9.4 H [place] # Eos # Lymph # (Auto) [place] # (Auto) 1.2 H Eos # (Auto) Seg Neutrophils % 72.3 H Seg Neuts % (Manual) Baso # (Auto) Lymphocytes % (Manual) Monocytes % (Manual) Eosinophils % (Manual) Basophils % (Manual) Seg Neutrophils # 9.4 H Seg Neutrophils # Man Lymphocytes # (Manual) Monocytes # (Manual) Eosinophils # (Manual) Nucleated RBC % Basophils # (Manual) PT INR APTT Heparin Anti-Xa Level ABG pH POC ABG pO2 ABG pO2 ABG HCO3 ABG O2 Saturation ABG Base Excess POC ABG pCO2 ABG Hemoglobin ABG Oxyhemoglobin ABG Glucose Oxyhemoglobin Sodium Potassium Chloride Carbon Dioxide BUN Creatinine Glucose POC Glucose 124 H 129 H Lactic Acid Calcium Phosphorus Magnesium AST ALT Lactate Dehydrogenase Total Bilirubin CK-MB (CK-2) C-Reactive Protein NT-Pro-B Natriuret Pep Total Protein Albumin Arterial Blood Glucose Urine WBC (Auto) Urine Creatinine 02/03/20 02/03/20 02/03/20 07:04 11:32 12:49 WBC RBC Hgb Hct MCHC RDW MCV MCH Lymph % (Auto) [place] % (Auto) [place] # Eos # Lymph # (Auto) [place] # (Auto) Eos # (Auto) Seg Neutrophils % Seg Neuts % (Manual) Baso # (Auto) Lymphocytes % (Manual) Monocytes % (Manual) Eosinophils % (Manual) Basophils % (Manual) Seg Neutrophils # Seg Neutrophils # Man Lymphocytes # (Manual) Monocytes # (Manual) Eosinophils # (Manual) Nucleated RBC % Basophils # (Manual) PT INR APTT Heparin Anti-Xa Level ABG pH POC ABG pO2 ABG pO2 ABG HCO3 ABG O2 Saturation ABG Base Excess POC ABG pCO2 ABG Hemoglobin ABG Oxyhemoglobin ABG Glucose Oxyhemoglobin Sodium Potassium Chloride 97.9 L Carbon Dioxide 33 H BUN 39 H Creatinine Glucose 119 H POC Glucose 138 H Lactic Acid Calcium Phosphorus Magnesium 2.60 H AST ALT Lactate Dehydrogenase Total Bilirubin CK-MB (CK-2) C-Reactive Protein NT-Pro-B Natriuret Pep Total Protein Albumin Arterial Blood Glucose Urine WBC (Auto) Urine Creatinine 02/03/20 02/04/20 02/04/20 18:28 16:24 16:24 WBC RBC 3.38 L Hgb 8.6 L Hct 26.9 L MCHC RDW 19.5 H MCV 80 L MCH 26 L Lymph % (Auto) [place] % (Auto) [place] # Eos # Lymph # (Auto) [place] # (Auto) Eos # (Auto) Seg Neutrophils % Seg Neuts % (Manual) Baso # (Auto) Lymphocytes % (Manual) Monocytes % (Manual) Eosinophils % (Manual) Basophils % (Manual) Seg Neutrophils # Seg Neutrophils # Man Lymphocytes # (Manual) Monocytes # (Manual) Eosinophils # (Manual) Nucleated RBC % Basophils # (Manual) PT INR APTT Heparin Anti-Xa Level ABG pH POC ABG pO2 ABG pO2 ABG HCO3 ABG O2 Saturation ABG Base Excess POC ABG pCO2 ABG Hemoglobin ABG Oxyhemoglobin ABG Glucose Oxyhemoglobin Sodium Potassium 3.4 L Chloride Carbon Dioxide 31 H BUN 37 H Creatinine Glucose 70 L POC Glucose 118 H Lactic Acid Calcium Phosphorus Magnesium AST 169 H ALT 394 H Lactate Dehydrogenase Total Bilirubin 1.50 H CK-MB (CK-2) C-Reactive Protein NT-Pro-B Natriuret Pep Total Protein Albumin 2.9 L Arterial Blood Glucose Urine WBC (Auto) Urine Creatinine 02/05/20 02/05/20 00:41 06:37 WBC RBC Hgb Hct MCHC RDW MCV MCH Lymph % (Auto) [place] % (Auto) [place] # Eos # Lymph # (Auto) [place] # (Auto) Eos # (Auto) Seg Neutrophils % Seg Neuts % (Manual) Baso # (Auto) Lymphocytes % (Manual) Monocytes % (Manual) Eosinophils % (Manual) Basophils % (Manual) Seg Neutrophils # Seg Neutrophils # Man Lymphocytes # (Manual) Monocytes # (Manual) Eosinophils # (Manual) Nucleated RBC % Basophils # (Manual) PT INR APTT Heparin Anti-Xa Level ABG pH POC ABG pO2 ABG pO2 ABG HCO3 ABG O2 Saturation ABG Base Excess POC ABG pCO2 ABG Hemoglobin ABG Oxyhemoglobin ABG Glucose Oxyhemoglobin Sodium Potassium 3.1 L Chloride Carbon Dioxide 35 H BUN 32 H Creatinine 0.7 L Glucose POC Glucose 69 L Lactic Acid Calcium Phosphorus Magnesium AST 134 H ALT 352 H Lactate Dehydrogenase Total Bilirubin 1.60 H CK-MB (CK-2) C-Reactive Protein NT-Pro-B Natriuret Pep Total Protein Albumin 2.9 L Arterial Blood Glucose Urine WBC (Auto) Urine Creatinine Chest x-ray: pending Allied health notes reviewed: nursing
--- NOTE | 2020-02-05 15:17 | Gastroenterology Progress Note ---
Assessment and Plan - Patient Problems (1) Nausea & vomiting Current Visit: Yes Status: Acute Plan to address problem: - Hx of partial SBO, but current N/V appears related to his large fecal impaction (and SBO is resolved). - Will give enough Golyte to clear impaction, and also start daily miralax. - OK to resume tube feeds. (2) Abnormal liver enzymes Current Visit: Yes Status: Acute Plan to address problem: - Will recheck tomorrow, and f/u hepatitis panel. - Patient recently on amiodarone, but now off. - Numbers stable, and will monitor conservatively. Subjective Date of service: 02/05/20 Principal diagnosis: N/V, Abnl LFT Interval history: The patient has been stable since being NPO without N/V. He has had no bowel movements. There is no blood around the PEG or per rectum. Objective - Constitutional Vitals: Temp Pulse Resp BP Pulse Ox 98 F 71 20 107/86 100 02/05/20 12:00 02/05/20 12:00 02/05/20 12:00 02/05/20 13:11 02/05/20 12:00 General appearance: no acute distress - Respiratory Respiratory effort: normal Respiratory: bilateral: CTA - Cardiovascular Rhythm: regular Heart Sounds: Present: S1 & S2 - Gastrointestinal General gastrointestinal: Present: soft, non-tender, non-distended, other (PEG in LUQ) - Labs CBC & Chem 7: 02/04/20 16:24 02/05/20 06:37 Labs: Laboratory Results - last 24 hr 02/04/20 02/04/20 02/04/20 12:11 16:24 16:24 WBC 8.6 RBC 3.38 L Hgb 8.6 L Hct 26.9 L MCV 80 L MCH 26 L MCHC 32 RDW 19.5 H Plt Count 203 Sodium 144 Potassium 3.4 L Chloride 101.6 Carbon Dioxide 31 H Anion Gap 15 BUN 37 H Creatinine 0.8 Estimated GFR > 60 BUN/Creatinine Ratio 46 Glucose 70 L POC Glucose 86 Calcium 9.2 Total Bilirubin 1.50 H AST 169 H ALT 394 H Alkaline Phosphatase 89 Total Protein 6.5 Albumin 2.9 L Albumin/Globulin Ratio 0.8 Hepatitis A IgM Ab Hep Bs Antigen Hep B Core IgM Ab Hepatitis C Antibody 02/04/20 02/05/20 02/05/20 18:28 00:41 02:30 WBC RBC Hgb Hct MCV MCH MCHC RDW Plt Count Sodium Potassium Chloride Carbon Dioxide Anion Gap BUN Creatinine Estimated GFR BUN/Creatinine Ratio Glucose POC Glucose 80 69 L 87 Calcium Total Bilirubin AST ALT Alkaline Phosphatase Total Protein Albumin Albumin/Globulin Ratio Hepatitis A IgM Ab Hep Bs Antigen Hep B Core IgM Ab Hepatitis C Antibody 02/05/20 02/05/20 02/05/20 05:55 06:37 06:37 WBC RBC Hgb Hct MCV MCH MCHC RDW Plt Count Sodium 144 Potassium 3.1 L Chloride 100.9 Carbon Dioxide 35 H Anion Gap 11 BUN 32 H Creatinine 0.7 L Estimated GFR > 60 BUN/Creatinine Ratio 46 Glucose 77 POC Glucose 83 Calcium 9.5 Total Bilirubin 1.60 H AST 134 H ALT 352 H Alkaline Phosphatase 88 Total Protein 6.5 Albumin 2.9 L Albumin/Globulin Ratio 0.8 Hepatitis A IgM Ab Non-reactive Hep Bs Antigen Non-reactive Hep B Core IgM Ab Non-reactive Hepatitis C Antibody Non-reactive
[2020-02-05] MEDS ORDERED: POLYETHYLENE GLYCOL/ELECT SOLN 4000 ML PO SCH (16:00)
[2020-02-05] MEDS: ONDANSETRON 4 MG/2 ML INJ IV PRN (17:26)
[2020-02-05] MEDS: LANSOPRAZOLE 30 MG SOLUTAB FEEDTUBE SCH (17:27)
[2020-02-05] MEDS: D5W/0.9% NACL 1,000 ML IV SCH (17:29)
--- NOTE | 2020-02-05 20:03 | Progress Note ---
Assessment and Plan Assessment and plan: Patient is a 64-year-old male with known history of hypertension, COPD, history of coronary artery disease, CHF with ejection fraction of 20 to 25% in August 2018 presenting to the emergency room via EMS complaining of shortness of breath. Patient was found to be hypoxic and in respiratory distress. Patient was placed on CPAP in route to the hospital. Patient remained hypoxic on CPAP BiPAP ,subsequently was intubated. Work-up in the emergency room including chest x-ray reveals bilateral pneumonia. He had an elevated white count of 14 and also had an elevated BNP. sputum cultures positive for Pseudomonas, ID treated with cefepime and Vanco. His hospital course became complicated with acute PE, DVT, paroxysmal atrial fib - placed on chronic anticoagulation. Patient was difficult to wean off, status post trach and PEG, remains on mechanical ventilation with trach tube. He then developed partial small bowel obstruction valuated by general surgeon symptom improved with medical Mx, patient was briefly weaned off ventilatory support however, was in respiratory failure requiring full ventilatory support. Cardiac catheterization on 01/22/2020. No new issues overnight. -Ischemic cardiomyopathy Cardiology is following, status post cardiac catheterization on 01/22/2020; Coronary artery disease status post PCI and stent to the LAD Continue current cardiac medications --Acute on chronic hypoxemic respiratory failure; Patient has tracheostomy on vent Continue nebulizers, , trach care Wean off ventilator as tolerated Pulmonary critical following --Acute exacerbation of COPD; Patient is currently on ventilatory support Continue nebulizers --Left lower lobe PE; Continue Eliquis, ventilatory support --Acute right lower extremity DVT; Patient is on Eliquis --Bilateral multifocal pneumonia/community-acquired Completed antibiotics, improved --Severe sepsis/bilateral pneumonia: Completed antibiotics COVID-19 test; 11/24/2019; negative 11/26/2019; negative 12/29/2019: Negative --atrial fibrillation WITH RVR Now rate controlled, Stable on amiodarone and Eliquis --Acute on chronic combined systolic and diastolic congestive heart failure Ischemic cardiomyopathy left ventricular ejection fraction 40 to 45% --H/o CAD [[facility] 12/2018 in-stent restenosis] --Hypertensive emergency; present on admission Reasonable blood pressures, continue current antihypertensives As needed medications Most stents were patent. --Hypokalemia --History of alcohol abuse/alcohol withdrawal; Was on CIWA protocol, now stable --Oropharyngeal dysphagia; status post PEG placement Continue PEG feeds per protocol --History of partial small bowel obstruction; resolved Surgery evaluated. At present not a surgical candidate. --Obesity; BMI 34.7 Patient needs weight reduction when medically stable --Severe protein calorie malnutrition/hypoalbuminemia Nutrition supplements, dietitian following, PEG feeds --DVT prophylaxis;Eliquis --Full CODE STATUS 01/05; Pt stable. NGT output 650cc over 24 hours, bilious. No f/c, WBC within normal limits. cont NG suction and cont to hold TF 01/06: Abs series - mild improvement in small bowel distension in mid abdomen, normal gas/stool pattern in colon. NGT in duodenum. Continue to hold tube feeding, maintain NG tube with low intermittent suction. Patient's was updated by phone. Continue to provide supportive care and monitor clinically. 01/07: +BMs today and NGT/PEG output appears more gastric today. Plan to clamp NGT, if tolerates start TF from tomorrow. cont supportive care. 01/08; Gastric output decreased over last 24 hours. NGT has been clamped x 24 hours. plan to dc NGT and to start TTF via PEG - vital HF @10cc/hr 01/09: clinically stable, tolerating TF. monitor BMP, wean off from vent as tolerated clinically stable, on TF. wean off vent as tolerated 01/11: wean off from vent, cont to monitor, on TF 01/12: wean off from vent, cont to monitor, on TF. need placement - unfunded 01/13; remains on ventilatory support, unable to wean, DC planning possible LTAC, unfunded 01/14; patient of ventilatory support, T-piece tracheostomy on oxygen, LTAC placement per case management 01/16; tracheostomy, patient on full ventilatory support, wean off vent support as tolerated, pending LTAC placement, social financial issues 01/17; awaiting LTAC placement, insurance and financial issues 01/18; patient tracheostomy remains on ventilatory support 01/19; wean off ventilator as tolerated 01/20; remains on ventilatory support, patient complains of intermittent chest pain, cardiology recommend left heart catheterization tomorrow 01/22/2020. Patient for left heart catheterization per cardiology. Patient remains on AC mode ventilation rate 12, tidal volume 450, FiO2 30% and PEEP of 6. Continue tracheostomy care, airway management and secretion control. 01/23/2020. Cardiac catheterization completed yesterday revealed widely patent previous LAD stent with mild nonobstructive atherosclerosis of the right mid coronary artery and rest of the coronary system was without significant atherosclerosis. The left ventricle ejection fraction was mildly impaired at 40 to 45%. There was some hypokinesis of the basal inferior wall suggestive of previous or recent infarct. Continue GDMT for coronary artery disease including beta blockers, topical nitrates, statin and Plavix. Continue Eliquis for paroxysmal atrial fibrillation and PE. Continue diuresis with Lasix and follow electrolytes closely. Continue Robinul and scopolamine for secretion control and daily SBT per pulmonary. Also, continue bronchodilators and routine trach care/airway management. T-piece trials per pulmonary as tolerated. 01/24/2020. Recent cardiac catheterization has documented widely patent left anterior descending artery stent with minimal nonobstructive diffuse coronary artery disease in the rest of the coronary arteries. Evidence of ischemic cardiomyopathy with inferior wall hypokinesis. Continue with guideline directed medical therapy. Continue Robinul and scopolamine for secretion control and daily SBT per pulmonary. Continue bronchodilators and routine trach care/airway management. T-piece trials per pulmonary as tolerated. 01/25/2020. Continue with guideline directed medical therapy for systolic heart failure. Cardiac catheterization revealed evidence of ischemic cardiomyopathy with inferior wall hypokinesis (EF 40-45%). Patient currently on T-piece with oxygen 10 L/min FiO2 40%. Continue Robinul and scopolamine for secretion control. Continue bronchodilators and routine trach care/airway management. 01/26/2020;Continue with guideline directed medical therapy for systolic heart failure. Cardiac catheterization revealed evidence of ischemic cardiomyopathy with inferior wall hypokinesis (EF 40-45%). Patient currently on T-piece with oxygen 10 L/min FiO2 40%. Continue Robinul and scopolamine for secretion co ntrol. Continue bronchodilators and routine trach care/airway management. 01/27/2020Continue with guideline directed medical therapy for systolic heart failure. Cardiac catheterization revealed evidence of ischemic cardiomyopathy with inferior wall hypokinesis (EF 40-45%). Patient currently on T-piece with oxygen 10 L/min FiO2 40%. Continue Robinul and scopolamine for secretion control. Continue bronchodilators and routine trach care/airway management. 01/28/2020Continue with guideline directed medical therapy for systolic heart failure. Cardiac catheterization revealed evidence of ischemic cardiomyopathy with inferior wall hypokinesis (EF 40-45%). Patient currently on T-piece with oxygen 10 L/min FiO2 40%. Continue Robinul and scopolamine for secretion control. Continue bronchodilators and routine trach care/airway management. 01/29/2020 Continue with guideline directed medical therapy for systolic heart failure. Cardiac catheterization revealed evidence of ischemic cardiomyopathy with inferior wall hypokinesis (EF 40-45%). Patient currently on T-piece with oxygen 10 L/min FiO2 40%. Continue Robinul and scopolamine for secretion control. Continue bronchodilators and routine trach care/airway management. 01/30/2020 Continue with guideline directed medical therapy for systolic heart failure. Cardiac catheterization revealed evidence of ischemic cardiomyopathy with inferior wall hypokinesis (EF 40-45%). Patient currently on T-piece with oxygen 10 L/min FiO2 40%. Continue Robinul and scopolamine for secretion control. Continue bronchodilators and routine trach care/airway management. Patient has recurrent A. fib and currently on amiodarone, continue beta-hebert, and Eliquis. Patient is on IV diuresis January 31, 2020. Patient resting comfortably. Catheterization with inferior wall hypokinesis ejection fraction 40 to 45%. Was unable to wean tracheostomy at this time. Failed T-piece trial initially. Secretions improved with addition of Robinul. Pulmonology for trach care and airway management and continue to wean. Atrial fibrillation rate well controlled at 81. Currently on amiodarone beta- hebert and anticoagulation with Eliquis. CHF continue present diuresis. February 01, 2020. Patient resting comfortably. No new concerns at this time patient is anticipating discharge. Still failed T-piece trial at this time again. Patient secretions have improved with Robinul all. Atrial fibrillation heart rate 70s to 80s. Well-controlled current anticoagulation Congestive heart failure compensated at this particular time. February 02, 2020 Patient with episode of projectile vomiting. Most likely source partial bowel obstruction versus tube feeds. Will obtain chest x-ray to rule out aspiration. We will also hold tube feeds for 12 hours and obtain KUB. Area tracheostomy needs to be cleaned out as well. Patient obviously has failed T-piece trial again this time. Resume weaning parameters in a.m. Unlikely the secretions that have been fairly well controlled. Atrial fibrillation rate have remained well controlled. Continue amiodarone and beta-hebert. Metoprolol. Congestive heart failure ejection fraction 40 to 45% patient had inferior wall hypokinesis on catheterization otherwise stable. Continue present diuresis Acute respiratory failure unable to wean tracheostomy at this time. Failed T- piece trial again. Despite improve secretions. Continue bronchodilators and weaning parameters. Projectile vomiting. Rule out small bowel obstruction rule out ileus. Will hold tube feeds obtain imaging to rule out aspiration and bowel obstruction as well. Continue antibiotics. 02/02: Discussed with Nursing staff, patient with some mild change in mental status, not following commands like prior,WILL OBTAIN HEAD CT remains intubated on full mechanical ventilatory support. Today is my first day seeing the omar t, have reviewed all records so far. Patients still with elevated heart rate of Afib with RVR continue amiodarone and metoprolol. LVEF 40 to 45%. Continue Eliquis FOR THE Acute PE/DVT. Partial SBO vs ileus- KUB is negative. Will monitor, No further vomiting noted. If no improvement will repeat a chest xray to ensure no aspiration in the last 24 hrs. Will initiate sepsis work up, Obtain cultures, cxr- no change, only showing stable bilateral pulmonary opacities, lactate checked and wnl. Mild elevation in WBC. will recheck in am. IF Continued fever, will reconsult ID. 02/03: Mental status more improved, agree with Reglan will change to IV scheduled for two days, no new vomiting. Pseudomonas A in Sputum. 02/04: Clinical improving, amiodarone discontinued due to LFTs, continue Metoprolol. Discussed with GI, started on Golytely to clear impaction. Started on dialy Miralax. The high probability of a clinically significant, sudden or life threatening deterioration of the [Pulmonary, GI, cardiac] system(s) required my full and direct attention, intervention and personal management. The aggregate critical care time was [35] minutes. This time is in addition to time spent performing r eported procedures but includes the following: [x] Data Review and interpretation [x] Patient assessment and monitoring of vital signs [x] Documentation [x] Medication orders and management History Interval history: Patient seen and examined, more awake today, following commands Hospitalist Physical - Physical exam Narrative exam: General appearance: Present: well-nourished, AWAKE, oriented - EENT Eyes: Present: PERRL, EOM intact. Absent: scleral icterus ENT: clear oral mucosa, dentition normal, NGT - Neck Neck: Present: supple, normal ROM, Trach - Respiratory Respiratory effort: normal, mechanical ventilation Respiratory: bilateral: rales - Cardiovascular Rhythm: regular Heart Sounds: Present: S1 & S2. Absent: gallop, systolic murmur, diastolic murmur, rub - Extremities Extremities: no ischemia, pulses intact, pulses symmetrical, No edema, Full ROM Peripheral Pulses: within normal limits - Abdominal General gastrointestinal: Present: PEG TUBE Site intact, soft, non-tender, non- distended, normal bowel sounds. Absent: mass - Integumentary Integumentary: Present: clear, warm, dry. Absent: rash - Musculoskeletal Musculoskeletal: strength equal bilaterally - Psychiatric Psychiatric: cooperative - Constitutional Vitals: Temp Pulse Resp BP Pulse Ox 97.5 F L 118 H 21 125/83 100 02/05/20 16:00 02/05/20 18:00 02/05/20 18:00 02/05/20 18:00 02/05/20 18:00 General appearance: Present: mild distress, other (Diaphoretic) HEART Score - HEART Score Troponin: Troponin T < 0.010 ng/mL (0.00-0.029) 01/19/20 01:35 Results - Labs CBC & Chem 7: 02/04/20 16:24 02/05/20 06:37 Labs: Laboratory Last Values WBC 8.6 K/mm3 (4.5-11.0) 02/04/20 16:24 RBC 3.38 M/mm3 (3.65-5.03) L 02/04/20 16:24 Hgb 8.6 gm/dl (11.8-15.2) L 02/04/20 16:24 Hct 26.9 % (35.5-45.6) L 02/04/20 16:24 MCV 80 fl (84-94) L 02/04/20 16:24 MCH 26 pg (28-32) L 02/04/20 16:24 MCHC 32 % (32-34) 02/04/20 16:24 RDW 19.5 % (13.2-15.2) H 02/04/20 16:24 Plt Count 203 K/mm3 (140-440) 02/04/20 16:24 Lymph % (Auto) 17.5 % (13.4-35.0) 02/03/20 07:04 [place] % (Auto) 9.4 % (0.0-7.3) H 02/03/20 07:04 Eos % (Auto) 0.2 % (0.0-4.3) 02/03/20 07:04 Baso % (Auto) 0.6 % (0.0-1.8) 02/03/20 07:04 Lymph # (Auto) 2.3 K/mm3 (1.2-5.4) 02/03/20 07:04 [place] # (Auto) 1.2 K/mm3 (0.0-0.8) H 02/03/20 07:04 Eos # (Auto) 0.0 K/mm3 (0.0-0.4) 02/03/20 07:04 Baso # (Auto) 0.1 K/mm3 (0.0-0.1) 02/03/20 07:04 Add Manual Diff Complete 12/19/19 11:32 Total Counted 100 12/19/19 11:32 Seg Neutrophils % 72.3 % (40.0-70.0) H 02/03/20 07:04 Seg Neuts % (Manual) 82.0 % (40.0-70.0) H 12/19/19 11:32 Band Neutrophils % 0 % 12/19/19 11:32 Lymphocytes % (Manual) 10.0 % (13.4-35.0) L 12/19/19 11:32 Reactive Lymphs % (Man) 0 % 12/19/19 11:32 Monocytes % (Manual) 6.0 % (0.0-7.3) 12/19/19 11:32 Eosinophils % (Manual) 2.0 % (0.0-4.3) 12/19/19 11:32 Basophils % (Manual) 0 % (0.0-1.8) 12/19/19 11:32 Metamyelocytes % 0 % 12/19/19 11:32 Myelocytes % 0 % 12/19/19 11:32 Promyelocytes % 0 % 12/19/19 11:32 Blast Cells % 0 % 12/19/19 11:32 Nucleated RBC % 1.0 % (0.0-0.9) H 12/19/19 11:32 Seg Neutrophils # 9.4 K/mm3 (1.8-7.7) H 02/03/20 07:04 Seg Neutrophils # Man 12.0 K/mm3 (1.8-7.7) H 12/19/19 11:32 Band Neutrophils # 0.0 K/mm3 12/19/19 11:32 Lymphocytes # (Manual) 1.5 K/mm3 (1.2-5.4) 12/19/19 11:32 Abs React Lymphs (Man) 0.0 K/mm3 12/19/19 11:32 Monocytes # (Manual) 0.9 K/mm3 (0.0-0.8) H 12/19/19 11:32 Eosinophils # (Manual) 0.3 K/mm3 (0.0-0.4) 12/19/19 11:32 Basophils # (Manual) 0.0 K/mm3 (0.0-0.1) 12/19/19 11:32 Metamyelocytes # 0.0 K/mm3 12/19/19 11:32 Myelocytes # 0.0 K/mm3 12/19/19 11:32 Promyelocytes # 0.0 K/mm3 12/19/19 11:32 Blast Cells # 0.0 K/mm3 12/19/19 11:32 WBC Morphology Not Reportable 12/19/19 11:32 Hypersegmented Neuts Not Reportable 12/19/19 11:32 Hyposegmented Neuts Not Reportable 12/19/19 11:32 Hypogranular Neuts Not Reportable 12/19/19 11:32 Smudge Cells Not Reportable 12/19/19 11:32 Toxic Granulation Not Reportable 12/19/19 11:32 Toxic Vacuolation Not Reportable 12/19/19 11:32 Dohle Bodies Not Reportable 12/19/19 11:32 Pelger-Huet Anomaly Not Reportable 12/19/19 11:32 Hector Rods Not Reportable 12/19/19 11:32 Platelet Estimate Consistent w auto 12/19/19 11:32 Clumped Platelets Not Reportable 12/19/19 11:32 Plt Clumps, EDTA Not Reportable 12/19/19 11:32 Large Platelets Not Reportable 12/19/19 11:32 Giant Platelets Not Reportable 12/19/19 11:32 Platelet Satelliting Not Reportable 12/19/19 11:32 Plt Morphology Comment Not Reportable 12/19/19 11:32 RBC Morphology Not Reportable 12/19/19 11:32 Dimorphic RBCs Not Reportable 12/19/19 11:32 Polychromasia Not Reportable 12/19/19 11:32 Hypochromasia Few 12/19/19 11:32 Poikilocytosis Not Reportable 12/19/19 11:32 Anisocytosis 1+ 12/19/19 11:32 Microcytosis Few 12/19/19 11:32 Macrocytosis Few 12/19/19 11:32 Spherocytes Not Reportable 12/19/19 11:32 Pappenheimer Bodies Not Reportable 12/19/19 11:32 Sickle Cells Not Reportable 12/19/19 11:32 Target Cells Not Reportable 12/19/19 11:32 Tear Drop Cells Not Reportable 12/19/19 11:32 Ovalocytes Not Reportable 12/19/19 11:32 Helmet Cells Not Reportable 12/19/19 11:32 Gottlieb-Juliaetta Bodies Not Reportable 12/19/19 11:32 [place] Rings Not Reportable 12/19/19 11:32 Scurry Cells Not Reportable 12/19/19 11:32 Bite Cells Not Reportable 12/19/19 11:32 Crenated Cell Not Reportable 12/19/19 11:32 Elliptocytes Not Reportable 12/19/19 11:32 Acanthocytes (Spur) Not Reportable 12/19/19 11:32 Rouleaux Not Reportable 12/19/19 11:32 Hemoglobin C Crystals Not Reportable 12/19/19 11:32 Schistocytes Not Reportable 12/19/19 11:32 Malaria parasites Not Reportable 12/19/19 11:32 Clifofrd Bodies Not Reportable 12/19/19 11:32 Hem Pathologist Commnt No 12/19/19 11:32 PT 16.9 Sec. (12.2-14.9) H 01/22/20 09:58 INR 1.34 (0.87-1.13) H 01/22/20 09:58 APTT 31.5 Sec. (24.2-36.6) 01/22/20 09:58 Heparin Anti-Xa Level 1.34 U.I./ml (0.3-0.7) H 01/22/20 04:45 ABG pH 7.447 pH Units (7.350-7.450) 01/25/20 21:02 POC ABG pCO2 45.6 mmHg (32.0-48.0) 01/12/20 13:58 ABG pCO2 47.0 mm Hg 01/25/20 21:02 POC ABG pO2 76.6 mmHg (83-108) L 01/12/20 13:58 ABG pO2 57.5 mm Hg (80.0-90.0) L 01/25/20 21:02 POC ABG HCO3 31.2 01/12/20 13:58 ABG HCO3 31.7 mmol/L (20.0-26.0) H 01/25/20 21:02 ABG O2 Saturation 90.3 % (95.0-99.0) L 01/25/20 21:02 ABG O2 Content 16.0 (0.0-44) 01/25/20 21:02 POC ABG Base Excess 6.5 01/12/20 13:58 ABG Base Excess 6.6 mmol/L (-2.0-3.0) H 01/25/20 21:02 ABG Hemoglobin 13.0 gm/dl (14.0-18.0) L 01/25/20 21:02 ABG Oxyhemoglobin 84 (94-98) L 12/22/19 03:22 ABG Carboxyhemoglobin 2.5 % (0.0-5.0) 01/25/20 21:02 ABG Methemoglobin 0.6 % (0.0-1.5) 01/25/20 21:02 ABG Sodium 136.8 mmol/L (136.0-145.0) 01/12/20 13:58 ABG Potassium 3.7 mmol/L (3.40-4.50) 01/12/20 13:58 ABG Chloride 103.0 mmol/L (98-107) 01/12/20 13:58 ABG Glucose 99 mg/dL (65-95) H 01/12/20 13:58 Oxyhemoglobin 87.5 % (95.0-99.0) L 01/25/20 21:02 Carboxyhemoglobin 0.7 (0.5-1.5) 12/22/19 03:22 FiO2 40 % 01/25/20 21:02 Sodium 144 mmol/L (137-145) 02/05/20 06:37 Potassium 3.1 mmol/L (3.6-5.0) L 02/05/20 06:37 Chloride 100.9 mmol/L (98-107) 02/05/20 06:37 Carbon Dioxide 35 mmol/L (22-30) H 02/05/20 06:37 Anion Gap 11 mmol/L 02/05/20 06:37 BUN 32 mg/dL (9-20) H 02/05/20 06:37 Creatinine 0.7 mg/dL (0.8-1.3) L 02/05/20 06:37 Estimated GFR > 60 ml/min 02/05/20 06:37 BUN/Creatinine Ratio 46 % 02/05/20 06:37 Glucose 77 mg/dL (75-100) 02/05/20 06:37 POC Glucose 127 mg/dL (70-105) H 02/05/20 17:14 Lactic Acid 1.60 mmol/L (0.7-2.0) 02/03/20 12:49 Calcium 9.5 mg/dL (8.4-10.2) 02/05/20 06:37 Ferritin 84.4 ng/mL (30.0-300.0) 11/24/19 04:53 Direct Bilirubin < 0.2 mg/dL (0-0.2) 12/08/19 03:55 Indirect Bilirubin 0.2 mg/dL 12/08/19 03:55 Phosphorus 4.10 mg/dL (2.5-4.5) 01/31/20 19:24 Magnesium 2.60 mg/dL (1.7-2.3) H 02/03/20 12:49 Total Bilirubin 1.60 mg/dL (0.1-1.2) H 02/05/20 06:37 Total Creatine Kinase 141 units/L (55-170) 11/24/19 02:53 CK-MB (CK-2) 4.3 ng/mL (0.0-4.0) H 11/24/19 02:53 AST 134 units/L (5-40) H 02/05/20 06:37 ALT 352 units/L (7-56) H 02/05/20 06:37 CK-MB (CK-2) Rel Index 3.0 (0-4) 11/24/19 02:53 Alkaline Phosphatase 88 units/L (35-129) 02/05/20 06:37 C-Reactive Protein 8.50 mg/dL (0.00-1.30) H 12/01/19 12:16 Ammonia 35.0 umol/L (25-60) 02/03/20 12:49 Lactate Dehydrogenase 228 units/L (91-180) H 12/19/19 04:45 Troponin T < 0.010 ng/mL (0.00-0.029) 01/19/20 01:35 NT-Pro-B Natriuret Pep 3866 pg/mL (0-900) H 01/01/20 10:40 Total Protein 6.5 g/dL (6.3-8.2) 02/05/20 06:37 Albumin 2.9 g/dL (3.9-5) L 02/05/20 06:37 Albumin/Globulin Ratio 0.8 % 02/05/20 06:37 Procalcitonin 0.44 ng/mL (<0.15) 02/03/20 12:49 Arterial Blood Glucose 99 mg/dL (65-95) H 01/12/20 13:58 Arterial Blood Ionized Calcium 4.8 mg/dL (4.6-5.3) 01/12/20 13:58 Urine Color Cecy (Yellow) 12/31/19 18:04 Urine Turbidity Clear (Clear) 12/31/19 18:04 Urine pH 5.0 (5.0-7.0) 12/31/19 18:04 Ur Specific [place] 1.023 (1.003-1.030) 12/31/19 18:04 Urine Protein <15 mg/dl mg/dL (Negative) 12/31/19 18:04 Urine Glucose (UA) Neg mg/dL (Negative) 12/31/19 18:04 Urine Ketones Neg mg/dL (Negative) 12/31/19 18:04 Urine Blood Neg (Negative) 12/31/19 18:04 Urine Bacteria (Auto) 1+ /HPF (Negative) 12/03/19 06:03 Urine Nitrite Neg (Negative) 12/31/19 18:04 Urine Bilirubin Neg (Negative) 12/31/19 18:04 Urine Urobilinogen 4.0 mg/dL (<2.0) 12/31/19 18:04 Ur Leukocyte Esterase Neg (Negative) 12/31/19 18:04 Urine WBC (Auto) 2.0 /HPF (0.0-6.0) 12/31/19 18:04 Urine RBC (Auto) 3.0 /HPF (0.0-6.0) 12/31/19 18:04 U Epithel Cells (Auto) 2.0 /HPF (0-13.0) 12/31/19 18:04 Urine Mucus 1+ /HPF 12/31/19 18:04 Urine Creatinine 57.4 mg/dL (0.1-20.0) H 01/31/20 Unknown Urine Sodium 59 mmol/L 01/31/20 Unknown Vancomycin Trough 14.2 ug/mL (5.0-20.0) 12/13/19 15:01 Coronavirus (PCR) Negative (Negative) 12/29/19 10:07 Hepatitis A IgM Ab Non-reactive (NonReactive) 02/05/20 06:37 Hep Bs Antigen Non-reactive (Negative) 02/05/20 06:37 Hep B Core IgM Ab Non-reactive (NonReactive) 02/05/20 06:37 Hepatitis C Antibody Non-reactive (NonReactive) 02/05/20 06:37 Blood Type O POSITIVE 01/21/20 13:00 Antibody Screen Negative 01/21/20 13:00 Microbiology: Microbiology 02/03/20 15:52 Peripheral/Venous Blood Culture - Preliminary NO GROWTH AFTER 48 HOURS 02/03/20 15:52 Peripheral/Venous Blood Culture - Preliminary NO GROWTH AFTER 48 HOURS - Diagnostic Impressions Diagnostic Impressions: Echocardiogram 11/29/19 07:37 Transthoracic Echocardiogram Indication: CHF BP: 116/72 HR: 33 Conclusions *The study is technically limited due to poor acoustic windows. *Global left ventricular systolic function is normal. *The estimated ejection fraction is 50-55%. *Mild concentric left ventricular hypertrophy is observed. *There is trace of mitral regurgitation. *There is mild tricuspid regurgitation. Findings Procedure Info: The study quality is poor. The study is technically limited due to poor acoustic windows. The study is technically limited due to patient body habitus. Left Ventricle: The left ventricular chamber size is normal. Mild concentric left ventricular hypertrophy is observed. Global left ventricular systolic function is normal. The estimated ejection fraction is 50-55%. Left Atrium: The left atrial chamber size is normal. Right Ventricle: The right ventricular cavity size is normal. Right Atrium: The right atrial cavity size is normal. Aortic Valve: The aortic valve leaflets are moderately thickened. There is trace of aortic regurgitation. There is no evidence of aortic stenosis. Mitral Valve: The mitral valve leaflets are mildly thickened. There is trace of mitral regurgitation. There is no evidence of mitral stenosis. Tricuspid Valve: There is mild tricuspid regurgitation. No pulmonary hypertension is noted. Pulmonic Valve: There is trace pulmonic regurgitation. Pericardium: There is no pericardial effusion. Aorta: There is no dilatation of the aortic root. Venous: The inferior vena cava appears normal in size. Contrast: Definity was used to optimize study. Intravenous contrast was used to enhance endocardial border definition. Measurements Chambers 2D Name Value Normal Range Ao root diameter (2D) 3.4 cm (2 - 3.7) Aortic Valve Name Value Normal Range AV Vmax 0.98 m/sec - AV VTI 16.76 cm - AV peak gradient 3.83 mmHg - AV mean gradient 2.57 mmHg - LVOT diameter 3.11 cm - LVOT Vmax 0.68 m/sec - LVOT VTI 11.52 cm - LVOT peak gradient 1.84 mmHg - LVOT mean gradient 1.27 mmHg - SV LVOT 87.31 ml - MALOU (continuity Vmax) 5.24 cm2 - MALOU (continuity VTI) 5.21 cm2 - Tricuspid Valve Name Value Normal Range IVC diameter 2.24 cm (1.2 - 2.3) Hoffman/IV: Voiding Method Indwelling Catheter IV Catheter Type [Right INT / Saline Lock Forearm] IV Catheter Type [Right Hand] Peripheral IV IV Catheter Type [Right Upper INT / Saline Lock arm] IV Catheter Type [Left Upper Mid-line arm] IV Catheter Type [Left Forearm INT / Saline Lock ] IV Catheter Type [Left Hand] Peripheral IV IV Catheter Type [Left Wrist] INT / Saline Lock IV Catheter Type [Right Peripheral IV Antecubital] Active Medications - Current Medications Current Medications: Generic Name Dose Route Start Last Admin Trade Name Freq PRN Reason Stop Dose Admin Acetaminophen 650 mg 12/31/19 11:43 02/03/20 12:54 Tylenol FEEDTUBE 650 mg Q6H PRN Administration Pain, Mild (1-3) Lipase/Protease/Amylase 1 each 01/09/20 12:01 Pancrepetr Betancourt 10,500 Unit FEEDTUBE PRN PRN For Clogged Feeding Tube Apixaban 5 mg 01/22/20 22:00 02/05/20 10:04 Eliquis PO 5 mg Q12HR CAR Administration Protocol Atorvastatin Calcium 40 mg 01/20/20 22:00 02/04/20 21:23 Lipitor PO 40 mg QHS CAR Administration Bisacodyl 10 mg 01/06/20 13:00 02/05/20 10:04 Dulcolax VA 10 mg DAILY CAR Administration Clopidogrel Bisulfate 75 mg 01/21/20 06:00 02/05/20 10:03 Plavix PO 75 mg QDAY CAR Administration Dextrose 50 ml 01/31/20 18:51 02/05/20 00:56 D50w (25gm) Syringe IV 50 ml Q30MIN PRN Administration Hypoglycemia Protocol Fentanyl 50 mcg 02/01/20 15:52 Sublimaze IV Q10MIN PRN ANALGESIA Glycopyrrolate 2 mg 01/26/20 20:00 02/05/20 13:11 Glycopyrrolate PO 2 mg TID CAR Administration Haloperidol Lactate 5 mg 12/25/19 10:00 01/22/20 11:35 Haldol IV 5 mg Q6H PRN Administration Unrespon. to mult. doses BZD's Hydrophilic Ointment 1 applic 01/17/20 15:26 Vaseline Lip Therapy TP DIRECT PRN Dry Lips Fentanyl Citrate 2,000 mcg in 100 mls @ 5.65 mls/hr 02/01/20 16:00 02/03/20 11:31 Fentanyl Drip Premix IV 0 mcg/kg/hr TITR CAR 0 mls/hr Titration Protocol 1 MCG/KG/HR Dextrose/Sodium Chloride 1,000 mls @ 50 mls/hr 02/04/20 17:00 02/05/20 17:29 D5ns IV 02/09/20 12:59 50 mls/hr DIRECT CRA Administration Insulin Human Regular 0 unit 02/01/20 18:00 02/05/20 12:33 Humulin R SUB-Q Not Given Q6H CAR Protocol Lansoprazole 30 mg 02/05/20 16:00 02/05/20 17:27 Prevacid Solutab FEEDTUBE 30 mg QDAY CAR Administration Lorazepam 2 mg 12/25/19 10:00 01/31/20 14:22 Ativan IV 2 mg Q6H PRN Administration AGITATION Metoclopramide HCl 5 mg 02/04/20 12:00 02/05/20 17:26 Reglan IV 5 mg Q6HR CAR Administration Metoprolol Tartrate 5 mg 01/11/20 08:00 02/03/20 07:16 Metoprolol IV 5 mg Q6H PRN Administration SEE INSTRUCTIONS Metoprolol Tartrate 50 mg 02/05/20 12:00 02/05/20 17:27 Metoprolol PO 50 mg Q6HR CAR Administration Midodrine 15 mg 02/04/20 16:00 02/05/20 17:27 Proamatine PO 15 mg TID@0800,1200,1600 CAR Administration Morphine Sulfate 2 mg 01/06/20 15:41 02/03/20 17:27 Morphine IV 2 mg Q4H PRN Administration Pain, Moderate (4-6) Multi-Ingred Cream/Lotion/Oil/Oint 1 applic 02/01/20 15:52 Artificial Tears Ophth Oint OU Q4HR PRN Dry Eye(s) Nitroglycerin 0.4 mg 01/19/20 21:09 01/20/20 03:03 Nitrostat SL 0.4 mg .Q5MIN PRN Administration Chest Pain Ondansetron HCl 4 mg 01/05/20 14:37 02/05/20 17:26 Zofran IV 4 mg Q8H PRN Administration Nausea And Vomiting Polyethylene Glycol 17 gm 12/04/19 22:00 02/04/20 21:22 Miralax 3350 PO 17 gm QHS CAR Administration Quetiapine Fumarate 300 mg 01/13/20 22:00 02/05/20 10:03 Seroquel PO 300 mg BID CAR Administration Scopolamine 1 each 01/07/20 20:00 01/07/20 21:08 Transderm-Scop TD 1 each Q72HR CAR Administration Simple Syrup 15 ml 01/09/20 12:01 Simple Syrup FEEDTUBE PRN PRN Hypoglycemia Simple Syrup 30 ml 01/09/20 12:01 Simple Syrup FEEDTUBE PRN PRN Hypoglycemia Sodium Bicarbonate 325 mg 01/09/20 12:01 Sodium Bicarbonate FEEDTUBE PRN PRN For Clogged Feeding Tube Sodium Chloride 10 ml 11/24/19 10:00 02/05/20 17:28 Sodium Chloride Flush Syringe 10 Ml IV Not Given BID CAR Tamsulosin HCl 0.8 mg 12/20/19 22:00 02/04/20 21:21 Flomax PO 0.8 mg QHS CAR Administration Nutrition/Malnutrition Assess - Dietary Evaluation Nutrition/Malnutrition Findings: Nutrition Notes Start: 11/24/19 12:22 Freq: Status: Active Protocol: Document 02/04/20 12:28 AL (Rec: 02/04/20 12:29 AL [id number]) Co-Sign 02/04/20 12:28 MK Nutrition Notes Initial or Follow up Brief Note Current Diagnosis Coronary Artery Disease,Heart Failure,Respiratory Failure, Stroke,Hyperlipidemia Other Pertinent Diagnosis Partial SBO, pneu, ventilated trach Current Diet NPO Subjective/Other Information F/U for TF restart and weight. Per RN, patient is still NPO. TF is still on hold. NGT on LIS. Nutrition Intervention Follow-Up By: 02/09/20 Additional Comments F/U for POC
[2020-02-05] MEDS: TAMSULOSIN 0.4 MG CAP PO SCH (21:07)
[2020-02-05] MEDS: POLYETHYLENE GLYCOL 3350 17 GM POWDER PO SCH (21:08)
[2020-02-06] MEDS: METOPROLOL TARTRATE 50 MG TAB PO SCH ×4 (02:20→18:00)
[2020-02-06] MEDS: METOCLOPRAMIDE 10 MG/2 ML INJ IV SCH ×5 (02:25→23:34)
[2020-02-06] MEDS: INSULIN REGULAR, HUMAN 100 UNIT/ML 3ML VIAL SUB-Q SCH ×3 (06:00→18:11)
[2020-02-06 08:57] LABS: BUN/Creatinine Ratio 33; Blood Urea Nitrogen 40 mg/dL (9-20); Calcium 9.3 mg/dL (8.4-10.2); Hemolysis Index 9
[2020-02-06] MEDS: GLYCOPYRROLATE 2 MG TAB PO SCH ×3 (09:00→21:26)
[2020-02-06] MEDS: MIDODRINE 5 MG TAB PO SCH ×3 (09:00→18:26)
--- NOTE | 2020-02-06 10:17 | Progress Note ---
Assessment and Plan - Patient Problems (1) Acute respiratory failure Current Visit: Yes Status: Acute (2) Bilateral pneumonia Current Visit: Yes Status: Acute (3) COPD exacerbation Current Visit: No Status: Acute (4) Hypertension Current Visit: No Status: Acute Qualifiers: Hypertension type: essential hypertension Qualified Code(s): I10 - Essential (primary) hypertension (5) Cardiomyopathy Current Visit: Yes Status: Acute (6) Paroxysmal atrial fibrillation Current Visit: Yes Status: Acute Subjective Date of service: 02/06/20 Principal diagnosis: Ac hypoxemic resp failure; Pneumonia; PUI COVID-19; CHF; COPD; HTN Interval history: alert,,,TRACH' IN PLACE,,,NOT SOB,,,,NO PAIN Objective Vital Signs Temp Pulse Resp Resp Resp BP Pulse Ox 02/06/20 08:10 98 02/06/20 08:00 97.9 F 89 25 H 102/75 100 02/06/20 07:58 02/06/20 07:56 91 H 28 H 94/68 100 02/06/20 07:00 88 21 93/69 100 02/06/20 06:00 91 H 28 H 94/68 100 02/06/20 05:35 90 100 02/06/20 05:02 90 96/71 02/06/20 05:00 91 H 21 96/71 100 02/06/20 04:00 99.0 F 91 H 15 98/70 100 02/06/20 03:39 89 100 02/06/20 03:37 92 H 98/70 100 02/06/20 03:00 92 H 22 99/71 100 02/06/20 02:20 80 94/65 02/06/20 02:00 90 16 94/68 100 02/06/20 01:35 89 24 24 100 02/06/20 01:00 89 27 H 95/68 100 02/06/20 00:13 87 95/64 100 02/06/20 00:00 99.8 F H 87 24 94/65 100 02/05/20 23:43 87 14 94/65 100 02/05/20 23:42 99.6 F 02/05/20 23:40 94 H 100 02/05/20 23:00 86 21 90/62 100 02/05/20 22:00 94 H 23 95/67 100 02/05/20 21:10 94 H 100 02/05/20 21:00 100 H 26 H 103/79 100 02/05/20 20:39 02/05/20 20:01 103 H 30 H 120/89 100 02/05/20 20:00 98.5 F 02/05/20 19:59 103 H 109/56 100 02/05/20 19:05 107 H 24 24 100 02/05/20 19:00 107 H 23 115/86 100 02/05/20 18:00 118 H 21 125/83 100 02/05/20 17:27 111 H 133/95 02/05/20 17:01 111 H 24 133/95 100 02/05/20 16:59 02/05/20 16:48 110 H 20 139/86 100 02/05/20 16:00 97.5 F L 110 H 34 H 128/101 100 02/05/20 15:00 106 H 29 H 125/92 100 02/05/20 14:01 107 H 20 127/93 100 02/05/20 13:11 107/86 02/05/20 13:00 104 H 21 107/86 100 02/05/20 12:00 98 F 108 H 20 128/90 100 02/05/20 11:33 107 H 29 H 133/79 100 02/05/20 11:00 105 H 20 122/86 100 Pulse Ox 02/06/20 08:10 02/06/20 08:00 02/06/20 07:58 98 02/06/20 07:56 02/06/20 07:00 02/06/20 06:00 02/06/20 05:35 02/06/20 05:02 02/06/20 05:00 02/06/20 04:00 02/06/20 03:39 02/06/20 03:37 02/06/20 03:00 02/06/20 02:20 02/06/20 02:00 02/06/20 01:35 02/06/20 01:00 02/06/20 00:13 02/06/20 00:00 02/05/20 23:43 02/05/20 23:42 02/05/20 23:40 02/05/20 23:00 02/05/20 22:00 02/05/20 21:10 02/05/20 21:00 02/05/20 20:39 99 02/05/20 20:01 02/05/20 20:00 02/05/20 19:59 02/05/20 19:05 02/05/20 19:00 02/05/20 18:00 02/05/20 17:27 02/05/20 17:01 02/05/20 16:59 99 02/05/20 16:48 02/05/20 16:00 02/05/20 15:00 02/05/20 14:01 02/05/20 13:11 02/05/20 13:00 02/05/20 12:00 02/05/20 11:33 02/05/20 11:00 - Physical Examination General: No Apparent Distress (ALERT), Other (s/p trach) HEENT: Positive: PERRL Neck: Positive: neck supple Cardiac: Positive: Reg Rate and Rhythm Lungs: Positive: clear to auscultation Neuro: Positive: Weakness Abdomen: Positive: Soft Skin: Positive: Clear Extremities: Absent: edema (NO CCE) - Labs and Meds Comprehensive Metabolic Panel 02/06/20 Range/Units 08:01 Sodium 143 (137-145) mmol/L Potassium 4.4 D (3.6-5.0) mmol/L Chloride 102.2 (98-107) mmol/L Carbon Dioxide 30 (22-30) mmol/L BUN 40 H (9-20) mg/dL Creatinine 1.2 D (0.8-1.3) mg/dL Glucose 132 H (75-100) mg/dL Calcium 9.3 (8.4-10.2) mg/dL - Allied health notes Allied health notes reviewed: nursing
[2020-02-06] MEDS: QUEtiapine 100 MG TAB PO SCH ×2 (10:29→21:24)
[2020-02-06] MEDS: APIXABAN 5 MG TAB PO SCH ×2 (10:30→21:24)
[2020-02-06] MEDS: LANSOPRAZOLE 30 MG SOLUTAB FEEDTUBE SCH (10:30)
[2020-02-06] MEDS: CLOPIDOGREL 75 MG TAB PO SCH (10:30)
--- NOTE | 2020-02-06 14:00 | Progress Note ---
Assessment and Plan Assessment and plan: Patient is a 64-year-old male with known history of hypertension, COPD, history of coronary artery disease, CHF with ejection fraction of 20 to 25% in August 2018 presenting to the emergency room via EMS complaining of shortness of breath. Patient was found to be hypoxic and in respiratory distress. Patient was placed on CPAP in route to the hospital. Patient remained hypoxic on CPAP BiPAP ,subsequently was intubated. Work-up in the emergency room including chest x-ray reveals bilateral pneumonia. He had an elevated white count of 14 and also had an elevated BNP. sputum cultures positive for Pseudomonas, ID treated with cefepime and Vanco. His hospital course became complicated with acute PE, DVT, paroxysmal atrial fib - placed on chronic anticoagulation. Patient was difficult to wean off, status post trach and PEG, remains on mechanical ventilation with trach tube. He then developed partial small bowel obstruction valuated by general surgeon symptom improved with medical Mx, patient was briefly weaned off ventilatory support however, was in respiratory failure requiring full ventilatory support. Cardiac catheterization on 01/22/2020. No new issues overnight. -Ischemic cardiomyopathy Cardiology is following, status post cardiac catheterization on 01/22/2020; Coronary artery disease status post PCI and stent to the LAD Continue current cardiac medications --Acute on chronic hypoxemic respiratory failure; Patient has tracheostomy on vent Continue nebulizers, , trach care Wean off ventilator as tolerated Pulmonary critical following --Acute exacerbation of COPD; Patient is currently on ventilatory support Continue nebulizers --Left lower lobe PE; Continue Eliquis, ventilatory support --Acute right lower extremity DVT; Patient is on Eliquis --Bilateral multifocal pneumonia/community-acquired Completed antibiotics, improved --Severe sepsis/bilateral pneumonia: Completed antibiotics COVID-19 test; 11/24/2019; negative 11/26/2019; negative 12/29/2019: Negative --atrial fibrillation WITH RVR Now rate controlled, Stable on amiodarone and Eliquis --Acute on chronic combined systolic and diastolic congestive heart failure Ischemic cardiomyopathy left ventricular ejection fraction 40 to 45% --H/o CAD [[facility] 12/2018 in-stent restenosis] --Hypertensive emergency; present on admission Reasonable blood pressures, continue current antihypertensives As needed medications Most stents were patent. --Hypokalemia --History of alcohol abuse/alcohol withdrawal; Was on CIWA protocol, now stable --Oropharyngeal dysphagia; status post PEG placement Continue PEG feeds per protocol --History of partial small bowel obstruction; resolved Surgery evaluated. At present not a surgical candidate. --Obesity; BMI 34.7 Patient needs weight reduction when medically stable --Severe protein calorie malnutrition/hypoalbuminemia Nutrition supplements, dietitian following, PEG feeds --DVT prophylaxis;Eliquis --Full CODE STATUS 01/05; Pt stable. NGT output 650cc over 24 hours, bilious. No f/c, WBC within normal limits. cont NG suction and cont to hold TF 01/06: Abs series - mild improvement in small bowel distension in mid abdomen, normal gas/stool pattern in colon. NGT in duodenum. Continue to hold tube feeding, maintain NG tube with low intermittent suction. Patient's was updated by phone. Continue to provide supportive care and monitor clinically. 01/07: +BMs today and NGT/PEG output appears more gastric today. Plan to clamp NGT, if tolerates start TF from tomorrow. cont supportive care. 01/08; Gastric output decreased over last 24 hours. NGT has been clamped x 24 hours. plan to dc NGT and to start TTF via PEG - vital HF @10cc/hr 01/09: clinically stable, tolerating TF. monitor BMP, wean off from vent as tolerated clinically stable, on TF. wean off vent as tolerated 01/11: wean off from vent, cont to monitor, on TF 01/12: wean off from vent, cont to monitor, on TF. need placement - unfunded 01/13; remains on ventilatory support, unable to wean, DC planning possible LTAC, unfunded 01/14; patient of ventilatory support, T-piece tracheostomy on oxygen, LTAC placement per case management 01/16; tracheostomy, patient on full ventilatory support, wean off vent support as tolerated, pending LTAC placement, social financial issues 01/17; awaiting LTAC placement, insurance and financial issues 01/18; patient tracheostomy remains on ventilatory support 01/19; wean off ventilator as tolerated 01/20; remains on ventilatory support, patient complains of intermittent chest pain, cardiology recommend left heart catheterization tomorrow 01/22/2020. Patient for left heart catheterization per cardiology. Patient remains on AC mode ventilation rate 12, tidal volume 450, FiO2 30% and PEEP of 6. Continue tracheostomy care, airway management and secretion control. 01/23/2020. Cardiac catheterization completed yesterday revealed widely patent previous LAD stent with mild nonobstructive atherosclerosis of the right mid coronary artery and rest of the coronary system was without significant atherosclerosis. The left ventricle ejection fraction was mildly impaired at 40 to 45%. There was some hypokinesis of the basal inferior wall suggestive of previous or recent infarct. Continue GDMT for coronary artery disease including beta blockers, topical nitrates, statin and Plavix. Continue Eliquis for paroxysmal atrial fibrillation and PE. Continue diuresis with Lasix and follow electrolytes closely. Continue Robinul and scopolamine for secretion control and daily SBT per pulmonary. Also, continue bronchodilators and routine trach care/airway management. T-piece trials per pulmonary as tolerated. 01/24/2020. Recent cardiac catheterization has documented widely patent left anterior descending artery stent with minimal nonobstructive diffuse coronary artery disease in the rest of the coronary arteries. Evidence of ischemic cardiomyopathy with inferior wall hypokinesis. Continue with guideline directed medical therapy. Continue Robinul and scopolamine for secretion control and daily SBT per pulmonary. Continue bronchodilators and routine trach care/airway management. T-piece trials per pulmonary as tolerated. 01/25/2020. Continue with guideline directed medical therapy for systolic heart failure. Cardiac catheterization revealed evidence of ischemic cardiomyopathy with inferior wall hypokinesis (EF 40-45%). Patient currently on T-piece with oxygen 10 L/min FiO2 40%. Continue Robinul and scopolamine for secretion control. Continue bronchodilators and routine trach care/airway management. 01/26/2020;Continue with guideline directed medical therapy for systolic heart failure. Cardiac catheterization revealed evidence of ischemic cardiomyopathy with inferior wall hypokinesis (EF 40-45%). Patient currently on T-piece with oxygen 10 L/min FiO2 40%. Continue Robinul and scopolamine for secretion co ntrol. Continue bronchodilators and routine trach care/airway management. 01/27/2020Continue with guideline directed medical therapy for systolic heart failure. Cardiac catheterization revealed evidence of ischemic cardiomyopathy with inferior wall hypokinesis (EF 40-45%). Patient currently on T-piece with oxygen 10 L/min FiO2 40%. Continue Robinul and scopolamine for secretion control. Continue bronchodilators and routine trach care/airway management. 01/28/2020Continue with guideline directed medical therapy for systolic heart failure. Cardiac catheterization revealed evidence of ischemic cardiomyopathy with inferior wall hypokinesis (EF 40-45%). Patient currently on T-piece with oxygen 10 L/min FiO2 40%. Continue Robinul and scopolamine for secretion control. Continue bronchodilators and routine trach care/airway management. 01/29/2020 Continue with guideline directed medical therapy for systolic heart failure. Cardiac catheterization revealed evidence of ischemic cardiomyopathy with inferior wall hypokinesis (EF 40-45%). Patient currently on T-piece with oxygen 10 L/min FiO2 40%. Continue Robinul and scopolamine for secretion control. Continue bronchodilators and routine trach care/airway management. 01/30/2020 Continue with guideline directed medical therapy for systolic heart failure. Cardiac catheterization revealed evidence of ischemic cardiomyopathy with inferior wall hypokinesis (EF 40-45%). Patient currently on T-piece with oxygen 10 L/min FiO2 40%. Continue Robinul and scopolamine for secretion control. Continue bronchodilators and routine trach care/airway management. Patient has recurrent A. fib and currently on amiodarone, continue beta-hebert, and Eliquis. Patient is on IV diuresis January 31, 2020. Patient resting comfortably. Catheterization with inferior wall hypokinesis ejection fraction 40 to 45%. Was unable to wean tracheostomy at this time. Failed T-piece trial initially. Secretions improved with addition of Robinul. Pulmonology for trach care and airway management and continue to wean. Atrial fibrillation rate well controlled at 81. Currently on amiodarone beta- hebert and anticoagulation with Eliquis. CHF continue present diuresis. February 01, 2020. Patient resting comfortably. No new concerns at this time patient is anticipating discharge. Still failed T-piece trial at this time again. Patient secretions have improved with Robinul all. Atrial fibrillation heart rate 70s to 80s. Well-controlled current anticoagulation Congestive heart failure compensated at this particular time. February 02, 2020 Patient with episode of projectile vomiting. Most likely source partial bowel obstruction versus tube feeds. Will obtain chest x-ray to rule out aspiration. We will also hold tube feeds for 12 hours and obtain KUB. Area tracheostomy needs to be cleaned out as well. Patient obviously has failed T-piece trial again this time. Resume weaning parameters in a.m. Unlikely the secretions that have been fairly well controlled. Atrial fibrillation rate have remained well controlled. Continue amiodarone and beta-hebert. Metoprolol. Congestive heart failure ejection fraction 40 to 45% patient had inferior wall hypokinesis on catheterization otherwise stable. Continue present diuresis Acute respiratory failure unable to wean tracheostomy at this time. Failed T- piece trial again. Despite improve secretions. Continue bronchodilators and weaning parameters. Projectile vomiting. Rule out small bowel obstruction rule out ileus. Will hold tube feeds obtain imaging to rule out aspiration and bowel obstruction as well. Continue antibiotics. 02/02: Discussed with Nursing staff, patient with some mild change in mental status, not following commands like prior,WILL OBTAIN HEAD CT remains intubated on full mechanical ventilatory support. Today is my first day seeing the omar t, have reviewed all records so far. Patients still with elevated heart rate of Afib with RVR continue amiodarone and metoprolol. LVEF 40 to 45%. Continue Eliquis FOR THE Acute PE/DVT. Partial SBO vs ileus- KUB is negative. Will monitor, No further vomiting noted. If no improvement will repeat a chest xray to ensure no aspiration in the last 24 hrs. Will initiate sepsis work up, Obtain cultures, cxr- no change, only showing stable bilateral pulmonary opacities, lactate checked and wnl. Mild elevation in WBC. will recheck in am. IF Continued fever, will reconsult ID. 02/03: Mental status more improved, agree with Reglan will change to IV scheduled for two days, no new vomiting. Pseudomonas A in Sputum. 02/04: Clinical improving, amiodarone discontinued due to LFTs, continue Metoprolol. Discussed with GI, started on Golytely to clear impaction. Started on dialy Miralax. 02/05: Continue supportive care. Noted bowel movement, continue bowel regimen The high probability of a clinically significant, sudden or life threatening deterioration of the [Pulmonary, GI, cardiac] system(s) required my full and direct attention, intervention and personal management. The aggregate critical c are time was [35] minutes. This time is in addition to time spent performing reported procedures but includes the following: [x] Data Review and interpretation [x] Patient assessment and monitoring of vital signs [x] Documentation [x] Medication orders and management History Interval history: Patient seen and examined, more awake today, following commands, Wants ICE. Hospitalist Physical - Physical exam Narrative exam: General appearance: Present: well-nourished, AWAKE, oriented - EENT Eyes: Present: PERRL, EOM intact. Absent: scleral icterus ENT: clear oral mucosa, dentition normal, NGT - Neck Neck: Present: supple, normal ROM, Trach - Respiratory Respiratory effort: normal, mechanical ventilation Respiratory: bilateral: rales - Cardiovascular Rhythm: regular Heart Sounds: Present: S1 & S2. Absent: gallop, systolic murmur, diastolic murmur, rub - Extremities Extremities: no ischemia, pulses intact, pulses symmetrical, No edema, Full ROM Peripheral Pulses: within normal limits - Abdominal General gastrointestinal: Present: PEG TUBE Site intact, soft, non-tender, non- distended, normal bowel sounds. Absent: mass - Integumentary Integumentary: Present: clear, warm, dry. Absent: rash - Musculoskeletal Musculoskeletal: strength equal bilaterally - Psychiatric Psychiatric: cooperative - Constitutional Vitals: Temp Pulse Resp BP Pulse Ox 98.3 F 95 H 25 H 87/58 100 02/06/20 12:00 02/06/20 13:12 02/06/20 12:00 02/06/20 13:12 02/06/20 12:00 General appearance: Present: mild distress, other (Diaphoretic) HEART Score - HEART Score Troponin: Troponin T < 0.010 ng/mL (0.00-0.029) 01/19/20 01:35 Results - Labs CBC & Chem 7: 02/04/20 16:24 02/06/20 08:01 Labs: Laboratory Last Values WBC 8.6 K/mm3 (4.5-11.0) 02/04/20 16:24 RBC 3.38 M/mm3 (3.65-5.03) L 02/04/20 16:24 Hgb 8.6 gm/dl (11.8-15.2) L 02/04/20 16:24 Hct 26.9 % (35.5-45.6) L 02/04/20 16:24 MCV 80 fl (84-94) L 02/04/20 16:24 MCH 26 pg (28-32) L 02/04/20 16:24 MCHC 32 % (32-34) 02/04/20 16:24 RDW 19.5 % (13.2-15.2) H 02/04/20 16:24 Plt Count 203 K/mm3 (140-440) 02/04/20 16:24 Lymph % (Auto) 17.5 % (13.4-35.0) 02/03/20 07:04 [place] % (Auto) 9.4 % (0.0-7.3) H 02/03/20 07:04 Eos % (Auto) 0.2 % (0.0-4.3) 02/03/20 07:04 Baso % (Auto) 0.6 % (0.0-1.8) 02/03/20 07:04 Lymph # (Auto) 2.3 K/mm3 (1.2-5.4) 02/03/20 07:04 [place] # (Auto) 1.2 K/mm3 (0.0-0.8) H 02/03/20 07:04 Eos # (Auto) 0.0 K/mm3 (0.0-0.4) 02/03/20 07:04 Baso # (Auto) 0.1 K/mm3 (0.0-0.1) 02/03/20 07:04 Add Manual Diff Complete 12/19/19 11:32 Total Counted 100 12/19/19 11:32 Seg Neutrophils % 72.3 % (40.0-70.0) H 02/03/20 07:04 Seg Neuts % (Manual) 82.0 % (40.0-70.0) H 12/19/19 11:32 Band Neutrophils % 0 % 12/19/19 11:32 Lymphocytes % (Manual) 10.0 % (13.4-35.0) L 12/19/19 11:32 Reactive Lymphs % (Man) 0 % 12/19/19 11:32 Monocytes % (Manual) 6.0 % (0.0-7.3) 12/19/19 11:32 Eosinophils % (Manual) 2.0 % (0.0-4.3) 12/19/19 11:32 Basophils % (Manual) 0 % (0.0-1.8) 12/19/19 11:32 Metamyelocytes % 0 % 12/19/19 11:32 Myelocytes % 0 % 12/19/19 11:32 Promyelocytes % 0 % 12/19/19 11:32 Blast Cells % 0 % 12/19/19 11:32 Nucleated RBC % 1.0 % (0.0-0.9) H 12/19/19 11:32 Seg Neutrophils # 9.4 K/mm3 (1.8-7.7) H 02/03/20 07:04 Seg Neutrophils # Man 12.0 K/mm3 (1.8-7.7) H 12/19/19 11:32 Band Neutrophils # 0.0 K/mm3 12/19/19 11:32 Lymphocytes # (Manual) 1.5 K/mm3 (1.2-5.4) 12/19/19 11:32 Abs React Lymphs (Man) 0.0 K/mm3 12/19/19 11:32 Monocytes # (Manual) 0.9 K/mm3 (0.0-0.8) H 12/19/19 11:32 Eosinophils # (Manual) 0.3 K/mm3 (0.0-0.4) 12/19/19 11:32 Basophils # (Manual) 0.0 K/mm3 (0.0-0.1) 12/19/19 11:32 Metamyelocytes # 0.0 K/mm3 12/19/19 11:32 Myelocytes # 0.0 K/mm3 12/19/19 11:32 Promyelocytes # 0.0 K/mm3 12/19/19 11:32 Blast Cells # 0.0 K/mm3 12/19/19 11:32 WBC Morphology Not Reportable 12/19/19 11:32 Hypersegmented Neuts Not Reportable 12/19/19 11:32 Hyposegmented Neuts Not Reportable 12/19/19 11:32 Hypogranular Neuts Not Reportable 12/19/19 11:32 Smudge Cells Not Reportable 12/19/19 11:32 Toxic Granulation Not Reportable 12/19/19 11:32 Toxic Vacuolation Not Reportable 12/19/19 11:32 Dohle Bodies Not Reportable 12/19/19 11:32 Pelger-Huet Anomaly Not Reportable 12/19/19 11:32 Hetcor Rods Not Reportable 12/19/19 11:32 Platelet Estimate Consistent w auto 12/19/19 11:32 Clumped Platelets Not Reportable 12/19/19 11:32 Plt Clumps, EDTA Not Reportable 12/19/19 11:32 Large Platelets Not Reportable 12/19/19 11:32 Giant Platelets Not Reportable 12/19/19 11:32 Platelet Satelliting Not Reportable 12/19/19 11:32 Plt Morphology Comment Not Reportable 12/19/19 11:32 RBC Morphology Not Reportable 12/19/19 11:32 Dimorphic RBCs Not Reportable 12/19/19 11:32 Polychromasia Not Reportable 12/19/19 11:32 Hypochromasia Few 12/19/19 11:32 Poikilocytosis Not Reportable 12/19/19 11:32 Anisocytosis 1+ 12/19/19 11:32 Microcytosis Few 12/19/19 11:32 Macrocytosis Few 12/19/19 11:32 Spherocytes Not Reportable 12/19/19 11:32 Pappenheimer Bodies Not Reportable 12/19/19 11:32 Sickle Cells Not Reportable 12/19/19 11:32 Target Cells Not Reportable 12/19/19 11:32 Tear Drop Cells Not Reportable 12/19/19 11:32 Ovalocytes Not Reportable 12/19/19 11:32 Helmet Cells Not Reportable 12/19/19 11:32 [place] Bodies Not Reportable 12/19/19 11:32 [place] Rings Not Reportable 12/19/19 11:32 Oc Cells Not Reportable 12/19/19 11:32 Bite Cells Not Reportable 12/19/19 11:32 Crenated Cell Not Reportable 12/19/19 11:32 Elliptocytes Not Reportable 12/19/19 11:32 Acanthocytes (Spur) Not Reportable 12/19/19 11:32 Rouleaux Not Reportable 12/19/19 11:32 Hemoglobin C Crystals Not Reportable 12/19/19 11:32 Schistocytes Not Reportable 12/19/19 11:32 Malaria parasites Not Reportable 12/19/19 11:32 Clifford Bodies Not Reportable 12/19/19 11:32 Hem Pathologist Commnt No 12/19/19 11:32 PT 16.9 Sec. (12.2-14.9) H 01/22/20 09:58 INR 1.34 (0.87-1.13) H 01/22/20 09:58 APTT 31.5 Sec. (24.2-36.6) 10/30/20 09:58 Heparin Anti-Xa Level 1.34 U.I./ml (0.3-0.7) H 01/22/20 04:45 ABG pH 7.447 pH Units (7.350-7.450) 01/25/20 21:02 POC ABG pCO2 45.6 mmHg (32.0-48.0) 01/12/20 13:58 ABG pCO2 47.0 mm Hg 01/25/20 21:02 POC ABG pO2 76.6 mmHg (83-108) L 01/12/20 13:58 ABG pO2 57.5 mm Hg (80.0-90.0) L 01/25/20 21:02 POC ABG HCO3 31.2 01/12/20 13:58 ABG HCO3 31.7 mmol/L (20.0-26.0) H 01/25/20 21:02 ABG O2 Saturation 90.3 % (95.0-99.0) L 01/25/20 21:02 ABG O2 Content 16.0 (0.0-44) 01/25/20 21:02 POC ABG Base Excess 6.5 01/12/20 13:58 ABG Base Excess 6.6 mmol/L (-2.0-3.0) H 01/25/20 21:02 ABG Hemoglobin 13.0 gm/dl (14.0-18.0) L 01/25/20 21:02 ABG Oxyhemoglobin 84 (94-98) L 12/22/19 03:22 ABG Carboxyhemoglobin 2.5 % (0.0-5.0) 01/25/20 21:02 ABG Methemoglobin 0.6 % (0.0-1.5) 01/25/20 21:02 ABG Sodium 136.8 mmol/L (136.0-145.0) 01/12/20 13:58 ABG Potassium 3.7 mmol/L (3.40-4.50) 01/12/20 13:58 ABG Chloride 103.0 mmol/L (98-107) 01/12/20 13:58 ABG Glucose 99 mg/dL (65-95) H 01/12/20 13:58 Oxyhemoglobin 87.5 % (95.0-99.0) L 01/25/20 21:02 Carboxyhemoglobin 0.7 (0.5-1.5) 12/22/19 03:22 FiO2 40 % 01/25/20 21:02 Sodium 143 mmol/L (137-145) 02/06/20 08:01 Potassium 4.4 mmol/L (3.6-5.0) D 02/06/20 08:01 Chloride 102.2 mmol/L (98-107) 02/06/20 08:01 Carbon Dioxide 30 mmol/L (22-30) 02/06/20 08:01 Anion Gap 15 mmol/L 02/06/20 08:01 BUN 40 mg/dL (9-20) H 02/06/20 08:01 Creatinine 1.2 mg/dL (0.8-1.3) D 02/06/20 08:01 Estimated GFR > 60 ml/min 02/06/20 08:01 BUN/Creatinine Ratio 33 % 02/06/20 08:01 Glucose 132 mg/dL (75-100) H 02/06/20 08:01 POC Glucose 167 mg/dL (70-105) H 02/06/20 11:51 Lactic Acid 1.60 mmol/L (0.7-2.0) 02/03/20 12:49 Calcium 9.3 mg/dL (8.4-10.2) 02/06/20 08:01 Ferritin 84.4 ng/mL (30.0-300.0) 11/24/19 04:53 Direct Bilirubin < 0.2 mg/dL (0-0.2) 12/08/19 03:55 Indirect Bilirubin 0.2 mg/dL 12/08/19 03:55 Phosphorus 4.10 mg/dL (2.5-4.5) 01/31/20 19:24 Magnesium 2.60 mg/dL (1.7-2.3) H 02/03/20 12:49 Total Bilirubin 1.60 mg/dL (0.1-1.2) H 02/05/20 06:37 Total Creatine Kinase 141 units/L (55-170) 11/24/19 02:53 CK-MB (CK-2) 4.3 ng/mL (0.0-4.0) H 11/24/19 02:53 AST 134 units/L (5-40) H 02/05/20 06:37 ALT 352 units/L (7-56) H 02/05/20 06:37 CK-MB (CK-2) Rel Index 3.0 (0-4) 11/24/19 02:53 Alkaline Phosphatase 88 units/L (35-129) 02/05/20 06:37 C-Reactive Protein 8.50 mg/dL (0.00-1.30) H 12/01/19 12:16 Ammonia 35.0 umol/L (25-60) 02/03/20 12:49 Lactate Dehydrogenase 228 units/L (91-180) H 12/19/19 04:45 Troponin T < 0.010 ng/mL (0.00-0.029) 01/19/20 01:35 NT-Pro-B Natriuret Pep 3866 pg/mL (0-900) H 01/01/20 10:40 Total Protein 6.5 g/dL (6.3-8.2) 02/05/20 06:37 Albumin 2.9 g/dL (3.9-5) L 02/05/20 06:37 Albumin/Globulin Ratio 0.8 % 02/05/20 06:37 Procalcitonin 0.44 ng/mL (<0.15) 02/03/20 12:49 Arterial Blood Glucose 99 mg/dL (65-95) H 01/12/20 13:58 Arterial Blood Ionized Calcium 4.8 mg/dL (4.6-5.3) 01/12/20 13:58 Urine Color Cecy (Yellow) 12/31/19 18:04 Urine Turbidity Clear (Clear) 12/31/19 18:04 Urine pH 5.0 (5.0-7.0) 12/31/19 18:04 Ur Specific [place] 1.023 (1.003-1.030) 12/31/19 18:04 Urine Protein <15 mg/dl mg/dL (Negative) 12/31/19 18:04 Urine Glucose (UA) Neg mg/dL (Negative) 12/31/19 18:04 Urine Ketones Neg mg/dL (Negative) 12/31/19 18:04 Urine Blood Neg (Negative) 12/31/19 18:04 Urine Bacteria (Auto) 1+ /HPF (Negative) 12/03/19 06:03 Urine Nitrite Neg (Negative) 12/31/19 18:04 Urine Bilirubin Neg (Negative) 12/31/19 18:04 Urine Urobilinogen 4.0 mg/dL (<2.0) 12/31/19 18:04 Ur Leukocyte Esterase Neg (Negative) 12/31/19 18:04 Urine WBC (Auto) 2.0 /HPF (0.0-6.0) 12/31/19 18:04 Urine RBC (Auto) 3.0 /HPF (0.0-6.0) 12/31/19 18:04 U Epithel Cells (Auto) 2.0 /HPF (0-13.0) 12/31/19 18:04 Urine Mucus 1+ /HPF 12/31/19 18:04 Urine Creatinine 57.4 mg/dL (0.1-20.0) H 01/31/20 Unknown Urine Sodium 59 mmol/L 01/31/20 Unknown Vancomycin Trough 14.2 ug/mL (5.0-20.0) 12/13/19 15:01 Coronavirus (PCR) Negative (Negative) 12/29/19 10:07 Hepatitis A IgM Ab Non-reactive (NonReactive) 02/05/20 06:37 Hep Bs Antigen Non-reactive (Negative) 02/05/20 06:37 Hep B Core IgM Ab Non-reactive (NonReactive) 02/05/20 06:37 Hepatitis C Antibody Non-reactive (NonReactive) 02/05/20 06:37 Blood Type O POSITIVE 01/21/20 13:00 Antibody Screen Negative 01/21/20 13:00 Microbiology: Microbiology 02/03/20 15:52 Peripheral/Venous Blood Culture - Preliminary NO GROWTH AFTER 48 HOURS 02/03/20 15:52 Peripheral/Venous Blood Culture - Preliminary NO GROWTH AFTER 48 HOURS - Diagnostic Impressions Diagnostic Impressions: Echocardiogram 11/29/19 07:37 Transthoracic Echocardiogram Indication: CHF BP: 116/72 HR: 33 Conclusions *The study is technically limited due to poor acoustic windows. *Global left ventricular systolic function is normal. *The estimated ejection fraction is 50-55%. *Mild concentric left ventricular hypertrophy is observed. *There is trace of mitral regurgitation. *There is mild tricuspid regurgitation. Findings Procedure Info: The study quality is poor. The study is technically limited due to poor acoustic windows. The study is technically limited due to patient body habitus. Left Ventricle: The left ventricular chamber size is normal. Mild concentric left ventricular hypertrophy is observed. Global left ventricular systolic function is normal. The estimated ejection fraction is 50-55%. Left Atrium: The left atrial chamber size is normal. Right Ventricle: The right ventricular cavity size is normal. Right Atrium: The right atrial cavity size is normal. Aortic Valve: The aortic valve leaflets are moderately thickened. There is trace of aortic regurgitation. There is no evidence of aortic stenosis. Mitral Valve: The mitral valve leaflets are mildly thickened. There is trace of mitral regurgitation. There is no evidence of mitral stenosis. Tricuspid Valve: There is mild tricuspid regurgitation. No pulmonary hypertension is noted. Pulmonic Valve: There is trace pulmonic regurgitation. Pericardium: There is no pericardial effusion. Aorta: There is no dilatation of the aortic root. Venous: The inferior vena cava appears normal in size. Contrast: Definity was used to optimize study. Intravenous contrast was used to enhance endocardial border definition. Measurements Chambers 2D Name Value Normal Range Ao root diameter (2D) 3.4 cm (2 - 3.7) Aortic Valve Name Value Normal Range AV Vmax 0.98 m/sec - AV VTI 16.76 cm - AV peak gradient 3.83 mmHg - AV mean gradient 2.57 mmHg - LVOT diameter 3.11 cm - LVOT Vmax 0.68 m/sec - LVOT VTI 11.52 cm - LVOT peak gradient 1.84 mmHg - LVOT mean gradient 1.27 mmHg - SV LVOT 87.31 ml - MALOU (continuity Vmax) 5.24 cm2 - MALOU (continuity VTI) 5.21 cm2 - Tricuspid Valve Name Value Normal Range IVC diameter 2.24 cm (1.2 - 2.3) Hoffman/IV: Voiding Method Indwelling Catheter IV Catheter Type [Right INT / Saline Lock Forearm] IV Catheter Type [Right Hand] Peripheral IV IV Catheter Type [Right Upper INT / Saline Lock arm] IV Catheter Type [Left Upper Mid-line arm] IV Catheter Type [Left Forearm INT / Saline Lock ] IV Catheter Type [Left Hand] Peripheral IV IV Catheter Type [Left Wrist] INT / Saline Lock IV Catheter Type [Right Peripheral IV Antecubital] Active Medications - Current Medications Current Medications: Generic Name Dose Route Start Last Admin Trade Name Freq PRN Reason Stop Dose Admin Acetaminophen 650 mg 12/31/19 11:43 02/03/20 12:54 Tylenol FEEDTUBE 650 mg Q6H PRN Administration Pain, Mild (1-3) Lipase/Protease/Amylase 1 each 01/09/20 12:01 Pancrepetr Betancourt 10,500 Unit FEEDTUBE PRN PRN For Clogged Feeding Tube Apixaban 5 mg 01/22/20 22:00 02/06/20 10:30 Eliquis PO 5 mg Q12HR CAR Administration Protocol Atorvastatin Calcium 40 mg 01/20/20 22:00 02/05/20 21:07 Lipitor PO 40 mg QHS CAR Administration Clopidogrel Bisulfate 75 mg 01/21/20 06:00 02/06/20 10:30 Plavix PO 75 mg QDAY CAR Administration Dextrose 50 ml 01/31/20 18:51 02/05/20 00:56 D50w (25gm) Syringe IV 50 ml Q30MIN PRN Administration Hypoglycemia Protocol Fentanyl 50 mcg 02/01/20 15:52 Sublimaze IV Q10MIN PRN ANALGESIA Glycopyrrolate 2 mg 01/26/20 20:00 02/06/20 13:13 Glycopyrrolate PO 2 mg TID CAR Administration Haloperidol Lactate 5 mg 12/25/19 10:00 01/22/20 11:35 Haldol IV 5 mg Q6H PRN Administration Unrespon. to mult. doses BZD's Hydrophilic Ointment 1 applic 01/17/20 15:26 Vaseline Lip Therapy TP DIRECT PRN Dry Lips Fentanyl Citrate 2,000 mcg in 100 mls @ 5.65 mls/hr 02/01/20 16:00 02/03/20 11:31 Fentanyl Drip Premix IV 0 mcg/kg/hr TITR CAR 0 mls/hr Titration Protocol 1 MCG/KG/HR Dextrose/Sodium Chloride 1,000 mls @ 50 mls/hr 02/04/20 17:00 02/05/20 17:29 D5ns IV 02/09/20 12:59 50 mls/hr DIRECT CAR Administration Insulin Human Regular 0 unit 02/01/20 18:00 02/05/20 23:43 Humulin R SUB-Q Not Given Q6H CAR Protocol Lansoprazole 30 mg 02/05/20 16:00 02/06/20 10:30 Prevacid Solutab FEEDTUBE 30 mg QDAY CAR Administration Lorazepam 2 mg 12/25/19 10:00 01/31/20 14:22 Ativan IV 2 mg Q6H PRN Administration AGITATION Metoclopramide HCl 5 mg 02/04/20 12:00 02/06/20 05:11 Reglan IV 5 mg Q6HR CAR Administration Metoprolol Tartrate 5 mg 01/11/20 08:00 02/03/20 07:16 Metoprolol IV 5 mg Q6H PRN Administration SEE INSTRUCTIONS Metoprolol Tartrate 50 mg 02/05/20 12:00 02/06/20 13:12 Metoprolol PO Not Given Q6HR CAR Midodrine 15 mg 02/04/20 16:00 02/06/20 13:03 Proamatine PO 15 mg TID@0800,1200,1600 CAR Administration Morphine Sulfate 2 mg 01/06/20 15:41 02/03/20 17:27 Morphine IV 2 mg Q4H PRN Administration Pain, Moderate (4-6) Multi-Ingred Cream/Lotion/Oil/Oint 1 applic 02/01/20 15:52 Artificial Tears Ophth Oint OU Q4HR PRN Dry Eye(s) Nitroglycerin 0.4 mg 01/19/20 21:09 01/20/20 03:03 Nitrostat SL 0.4 mg .Q5MIN PRN Administration Chest Pain Ondansetron HCl 4 mg 01/05/20 14:37 02/05/20 17:26 Zofran IV 4 mg Q8H PRN Administration Nausea And Vomiting Polyethylene Glycol 17 gm 12/04/19 22:00 02/05/20 21:08 Miralax 3350 PO 17 gm QHS CAR Administration Quetiapine Fumarate 300 mg 01/13/20 22:00 02/06/20 10:29 Seroquel PO 300 mg BID CAR Administration Scopolamine 1 each 01/07/20 20:00 01/07/20 21:08 Transderm-Scop TD 1 each Q72HR CAR Administration Simple Syrup 15 ml 01/09/20 12:01 Simple Syrup FEEDTUBE PRN PRN Hypoglycemia Simple Syrup 30 ml 01/09/20 12:01 Simple Syrup FEEDTUBE PRN PRN Hypoglycemia Sodium Bicarbonate 325 mg 01/09/20 12:01 Sodium Bicarbonate FEEDTUBE PRN PRN For Clogged Feeding Tube Sodium Chloride 10 ml 11/24/19 10:00 02/06/20 10:30 Sodium Chloride Flush Syringe 10 Ml IV 10 ml BID CAR Administration Tamsulosin HCl 0.8 mg 12/20/19 22:00 02/05/20 21:07 Flomax PO 0.8 mg QHS CAR Administration Nutrition/Malnutrition Assess - Dietary Evaluation Nutrition/Malnutrition Findings: Nutrition Notes Start: 11/24/19 12:22 Freq: Status: Active Protocol: Document 02/04/20 12:28 AL (Rec: 02/04/20 12:29 AL [id number]) Co-Sign 02/04/20 12:28 MK Nutrition Notes Initial or Follow up Brief Note Current Diagnosis Coronary Artery Disease,Heart Failure,Respiratory Failure, Stroke,Hyperlipidemia Other Pertinent Diagnosis Partial SBO, pneu, ventilated trach Current Diet NPO Subjective/Other Information F/U for TF restart and weight. Per RN, patient is still NPO. TF is still on hold. NGT on LIS. Nutrition Intervention Follow-Up By: 02/09/20 Additional Comments F/U for POC
--- NOTE | 2020-02-06 16:28 | Gastroenterology Progress Note ---
Assessment and Plan - Patient Problems (1) Abnormal liver enzymes Current Visit: Yes Status: Acute Plan to address problem: - hepatic panel from today pending. but previously stable. - acute hepatitis panel negative. - CT a/p with no liver abnormalities - possible drug induced with amiodarone, which is off now. - stable elevation. - will monitor conservatively. (2) Nausea & vomiting Current Visit: Yes Status: Acute Plan to address problem: - Hx of partial SBO, which has resolved. - n/v likely 2/2 fecal impaction, which is resolved after receiving Golytely prep. having multiple stools. - continue with miralax daily. (3) Pancreatic lesion Current Visit: Yes Status: Acute Plan to address problem: - CT a/p showing ~ 2 cm pancreatic head lesion. this was previously seen in prior CT but enlarged. - recommend work up outpatient with MRI once patient recovers from acute issues. Will sign off. please call with questions. Follow up outpatient for further work up of elevated liver enzymes and outpatient work up for pancreatic lesion. Subjective Date of service: 02/06/20 Principal diagnosis: Ac hypoxemic resp failure; Pneumonia; PUI COVID-19; CHF; COPD; HTN Interval history: Per nursing, patient had multiple stools. No nausea/vomiting. Objective - Constitutional Vitals: Temp Pulse Resp BP Pulse Ox 98.3 F 86 19 91/61 98 02/06/20 12:00 02/06/20 15:56 02/06/20 15:56 02/06/20 15:56 02/06/20 15:59 General appearance: no acute distress - Respiratory Respiratory effort: normal - Cardiovascular Rhythm: regular Heart Sounds: Present: S1 & S2 - Gastrointestinal General gastrointestinal: Present: soft, non-tender, non-distended - Labs CBC & Chem 7: 02/04/20 16:24 02/06/20 08:01 Labs: Laboratory Results - last 24 hr 02/05/20 02/05/20 02/05/20 12:47 17:14 23:43 Sodium Potassium Chloride Carbon Dioxide Anion Gap BUN Creatinine Estimated GFR BUN/Creatinine Ratio Glucose POC Glucose 79 127 H 129 H Calcium 02/06/20 02/06/20 02/06/20 05:32 08:01 11:51 Sodium 143 Potassium 4.4 D Chloride 102.2 Carbon Dioxide 30 Anion Gap 15 BUN 40 H Creatinine 1.2 D Estimated GFR > 60 BUN/Creatinine Ratio 33 Glucose 132 H POC Glucose 131 H 167 H Calcium 9.3
--- NOTE | 2020-02-06 16:56 | Progress Note ---
Assessment and Plan Acute hypoxemic respiratory failure Bilateral pneumonia, community acquired. Acute LLL branch P.E. Acute DVT Person under investigation for COVID-19 infection. Acute congestive heart failure exacerbation. History of cerebrovascular accident. Acute chronic obstructive pulmonary disease exacerbation. Hypertension and hypertensive urgency at presentation. History of arthritis. Leukocytosis. Lactic acidosis. Oropharyngeal dysphagia - continue daily SAT's and SBT assessment as tolerated - trend LFT's ? shock liver - placed sánchez catheter - continue Flomax at increased dose - antiinfective's per ID rec's - continue care as below otherwise; - Midodrine for BP support - prn mucomyst nebs re: secretions - continue full anticoagulation with Apixaban - continue seroquel for anxiolysis / delirium - COVID isolation per facility protocol - prn diuresis while following electrolytes / I's & O's - continue to wean oxygen for O2 sat's > 92% - continue bronchodilators with routine trach care and pulmonary hygiene per RT - continue Robinul & Scopolamine for secretion control - VAP bundle addressed (Aspiration precautions, HOB >40) - continue to wean per pulmonary driven protocols - sedation target is RASS 0 to -1 - continue prn analgesia per CPOT score - follow clinically re: fever curves / trend WBC - Avoid delirium (no benzodiazepines if they can be avoided) - Maintain sleep-wake cycle - enteral nutrition at goal rate as tolerated - continue accucheck's with glycemic control per SSI for target blood glucose goal of 140-180 mg/dL while critically ill; Avoid hypoglycemia - for VTE he is on IV Heparin - continue stress ulcer prophylaxis with Famotidine - continue mobility protocols for pressure ulcer prophylaxis - continue fall precautions - continue wound care management per RN / WCT - Supportive transfusions to keep HgB>7g/dL - CXR's and ABG's prn - Continue to monitor neurologic function - Continue chronic home medications - Continue all supportive care ........ re-evaluate in am & prn CONDITION: CRITICAL PROGNOSIS: GUARDED CODE STATUS: FULL CODE The high probability of a clinically significant, sudden or life threatening deterioration of the [Respiratory, cardiovascular & neurological] system(s) required my full and direct attention, intervention and personal management. The aggregate critical care time was [36] minutes without overlap. Time includes spent on [x] Data Review and interpretation [x] Patient assessment and monitoring of vital signs [x] Documentation [x] Medication orders and management Subjective Date of service: 02/06/20 Principal diagnosis: Ac hypoxemic resp failure; Pneumonia; PUI COVID-19; CHF; COPD; HTN Interval history: Patient is seen today for: Acute hypoxemic respiratory failure; [place]. Pneumonia (CAP); PUI COVID-19 infection; AE-CHF; AE-COPD; H/O CVA; HTN Seen and examined at bedside; 24 hour events reviewed; nursing and respiratory care staff consulted; no adverse overnight events reported to me; resting peacefully in bed; tolerating resumed tube feeds well so far; failed t-piece trial and back on PSV with p-supp at 10; No N/V/F/C Objective Vital Signs - 12hr 02/06/20 02/06/20 02/06/20 05:00 05:02 05:35 Temperature Pulse Rate 91 H 90 90 Respiratory 21 Rate Blood Pressure 96/71 96/71 O2 Sat by Pulse 100 100 Oximetry O2 Sat by Pulse Oximetry [ Assessment] 02/06/20 02/06/20 02/06/20 06:00 07:00 07:56 Temperature Pulse Rate 91 H 88 91 H Respiratory 28 H 21 28 H Rate Blood Pressure 94/68 93/69 94/68 O2 Sat by Pulse 100 100 100 Oximetry O2 Sat by Pulse Oximetry [ Assessment] 02/06/20 02/06/20 02/06/20 07:58 08:00 08:10 Temperature 97.9 F Pulse Rate 89 Respiratory 25 H Rate Blood Pressure 102/75 O2 Sat by Pulse 100 98 Oximetry O2 Sat by Pulse 98 Oximetry [ Assessment] 02/06/20 02/06/20 02/06/20 09:00 10:00 11:00 Temperature Pulse Rate 90 90 89 Respiratory 25 H 23 25 H Rate Blood Pressure 97/71 98/72 97/65 O2 Sat by Pulse 100 100 100 Oximetry O2 Sat by Pulse Oximetry [ Assessment] 02/06/20 02/06/20 02/06/20 12:00 13:00 13:12 Temperature 98.3 F Pulse Rate 85 84 95 H Respiratory 23 22 Rate Blood Pressure 90/59 87/58 87/58 O2 Sat by Pulse 100 100 Oximetry O2 Sat by Pulse Oximetry [ Assessment] 02/06/20 02/06/20 02/06/20 14:00 15:00 15:56 Temperature Pulse Rate 86 84 86 Respiratory 19 21 19 Rate Blood Pressure 91/61 84/62 91/61 O2 Sat by Pulse 100 100 100 Oximetry O2 Sat by Pulse Oximetry [ Assessment] 02/06/20 02/06/20 15:59 16:00 Temperature Pulse Rate 90 Respiratory 20 Rate Blood Pressure 86/59 O2 Sat by Pulse 100 Oximetry O2 Sat by Pulse 98 Oximetry [ Assessment] Constitutional: no acute distress, other (elelelderly and obese male, normocephalic with mildly increased respiratory effort at rest) Eyes: non-icteric ENT: oropharynx moist, other (+ midline tracheostomy) Neck: supple, no JVD Effort: mildly labored Ascultation: Bilateral: diminished breath sounds, rhonchi Percussion: Bilateral: not dull Cardiovascular: irregular rhythm, other (flow murmur) Gastrointestinal: normoactive bowel sounds, soft, non-tender, non-distended (protuberant), other (protuberant; PEG in place) Integumentary: normal Extremities: no cyanosis, pulses normal, no ischemia or petechiae, edema (bilateral upper ) Neurologic: non-focal exam (moves extremities), pupils equal and round, CN II- XII normal, motor strength normal and (weak) Psychiatric: mood appropriate, affect normal CBC and BMP: 02/04/20 16:24 02/06/20 08:01 ABG, PT/INR, D-dimer: ABG ABG pH 7.447 pH Units (7.350-7.450) 01/25/20 21:02 POC ABG pCO2 45.6 mmHg (32.0-48.0) 01/12/20 13:58 ABG pCO2 47.0 mm Hg 01/25/20 21:02 POC ABG pO2 76.6 mmHg (83-108) L 01/12/20 13:58 ABG pO2 57.5 mm Hg (80.0-90.0) L 01/25/20 21:02 POC ABG HCO3 31.2 01/12/20 13:58 ABG O2 Saturation 90.3 % (95.0-99.0) L 01/25/20 21:02 PT/INR, D-dimer PT 16.9 Sec. (12.2-14.9) H 01/22/20 09:58 INR 1.34 (0.87-1.13) H 01/22/20 09:58 Abnormal lab findings: Abnormal Labs 11/24/19 11/24/19 11/24/19 02:53 02:53 03:45 WBC 14.3 H RBC Hgb Hct MCHC RDW 17.2 H MCV MCH Lymph % (Auto) [place] % (Auto) [place] # Eos # Lymph # (Auto) [place] # (Auto) Eos # (Auto) Seg Neutrophils % Seg Neuts % (Manual) Baso # (Auto) Lymphocytes % (Manual) Monocytes % (Manual) Eosinophils % (Manual) Basophils % (Manual) Seg Neutrophils # Seg Neutrophils # Man 8.3 H Lymphocytes # (Manual) Monocytes # (Manual) 0.9 H Eosinophils # (Manual) Nucleated RBC % Basophils # (Manual) PT INR APTT Heparin Anti-Xa Level ABG pH 7.313 L POC ABG pO2 ABG pO2 102.8 H ABG HCO3 ABG O2 Saturation ABG Base Excess -2.9 L POC ABG pCO2 ABG Hemoglobin ABG Oxyhemoglobin ABG Glucose Oxyhemoglobin 93.9 L Sodium Potassium Chloride Carbon Dioxide BUN Creatinine Glucose 195 H POC Glucose Lactic Acid Calcium Phosphorus Magnesium AST ALT Lactate Dehydrogenase Total Bilirubin CK-MB (CK-2) 4.3 H C-Reactive Protein NT-Pro-B Natriuret Pep 1181 H Total Protein Albumin Arterial Blood Glucose Urine WBC (Auto) Urine Creatinine 11/24/19 11/24/19 11/24/19 04:53 04:53 10:37 WBC RBC Hgb Hct MCHC RDW MCV MCH Lymph % (Auto) [place] % (Auto) [place] # Eos # Lymph # (Auto) [place] # (Auto) Eos # (Auto) Seg Neutrophils % Seg Neuts % (Manual) Baso # (Auto) Lymphocytes % (Manual) Monocytes % (Manual) Eosinophils % (Manual) Basophils % (Manual) Seg Neutrophils # Seg Neutrophils # Man Lymphocytes # (Manual) Monocytes # (Manual) Eosinophils # (Manual) Nucleated RBC % Basophils # (Manual) PT INR APTT Heparin Anti-Xa Level ABG pH POC ABG pO2 ABG pO2 ABG HCO3 ABG O2 Saturation ABG Base Excess POC ABG pCO2 ABG Hemoglobin ABG Oxyhemoglobin ABG Glucose Oxyhemoglobin Sodium Potassium Chloride Carbon Dioxide BUN Creatinine Glucose 162 H POC Glucose Lactic Acid 2.40 H* 2.50 H* Calcium Phosphorus Magnesium AST ALT Lactate Dehydrogenase 240 H Total Bilirubin CK-MB (CK-2) C-Reactive Protein NT-Pro-B Natriuret Pep Total Protein Albumin Arterial Blood Glucose Urine WBC (Auto) Urine Creatinine 11/24/19 11/24/19 11/24/19 12:21 14:50 19:54 WBC RBC Hgb Hct MCHC RDW MCV MCH Lymph % (Auto) [place] % (Auto) [place] # Eos # Lymph # (Auto) [place] # (Auto) Eos # (Auto) Seg Neutrophils % Seg Neuts % (Manual) Baso # (Auto) Lymphocytes % (Manual) Monocytes % (Manual) Eosinophils % (Manual) Basophils % (Manual) Seg Neutrophils # Seg Neutrophils # Man Lymphocytes # (Manual) Monocytes # (Manual) Eosinophils # (Manual) Nucleated RBC % Basophils # (Manual) PT INR APTT Heparin Anti-Xa Level ABG pH POC ABG pO2 ABG pO2 ABG HCO3 ABG O2 Saturation ABG Base Excess POC ABG pCO2 ABG Hemoglobin ABG Oxyhemoglobin ABG Glucose Oxyhemoglobin Sodium Potassium Chloride Carbon Dioxide BUN Creatinine Glucose POC Glucose 145 H 143 H 124 H Lactic Acid Calcium Phosphorus Magnesium AST ALT Lactate Dehydrogenase Total Bilirubin CK-MB (CK-2) C-Reactive Protein NT-Pro-B Natriuret Pep Total Protein Albumin Arterial Blood Glucose Urine WBC (Auto) Urine Creatinine 11/25/19 11/25/19 11/25/19 00:18 03:18 05:11 WBC 13.7 H RBC Hgb Hct MCHC RDW 17.1 H MCV MCH Lymph % (Auto) 10.8 L [place] % (Auto) 8.7 H [place] # 1.2 H Eos # Lymph # (Auto) [place] # (Auto) Eos # (Auto) Seg Neutrophils % 80.2 H Seg Neuts % (Manual) Baso # (Auto) Lymphocytes % (Manual) Monocytes % (Manual) Eosinophils % (Manual) Basophils % (Manual) Seg Neutrophils # 11.0 H Seg Neutrophils # Man Lymphocytes # (Manual) Monocytes # (Manual) Eosinophils # (Manual) Nucleated RBC % Basophils # (Manual) PT INR APTT Heparin Anti-Xa Level ABG pH 7.333 L POC ABG pO2 ABG pO2 61.2 L ABG HCO3 ABG O2 Saturation 90.2 L ABG Base Excess POC ABG pCO2 ABG Hemoglobin 13.7 L ABG Oxyhemoglobin ABG Glucose Oxyhemoglobin 88.2 L Sodium Potassium Chloride Carbon Dioxide BUN Creatinine Glucose POC Glucose 109 H Lactic Acid Calcium Phosphorus Magnesium AST ALT Lactate Dehydrogenase Total Bilirubin CK-MB (CK-2) C-Reactive Protein NT-Pro-B Natriuret Pep Total Protein Albumin Arterial Blood Glucose Urine WBC (Auto) Urine Creatinine 11/25/19 11/25/19 11/26/19 05:11 11:40 03:12 WBC RBC Hgb Hct MCHC RDW MCV MCH Lymph % (Auto) [place] % (Auto) [place] # Eos # Lymph # (Auto) [place] # (Auto) Eos # (Auto) Seg Neutrophils % Seg Neuts % (Manual) Baso # (Auto) Lymphocytes % (Manual) Monocytes % (Manual) Eosinophils % (Manual) Basophils % (Manual) Seg Neutrophils # Seg Neutrophils # Man Lymphocytes # (Manual) Monocytes # (Manual) Eosinophils # (Manual) Nucleated RBC % Basophils # (Manual) PT INR APTT Heparin Anti-Xa Level ABG pH POC ABG pO2 ABG pO2 155.1 H ABG HCO3 27.8 H ABG O2 Saturation ABG Base Excess POC ABG pCO2 ABG Hemoglobin 12.2 L ABG Oxyhemoglobin ABG Glucose Oxyhemoglobin Sodium Potassium Chloride Carbon Dioxide BUN 23 H Creatinine Glucose 110 H POC Glucose 108 H Lactic Acid Calcium Phosphorus Magnesium AST ALT Lactate Dehydrogenase Total Bilirubin CK-MB (CK-2) C-Reactive Protein NT-Pro-B Natriuret Pep Total Protein Albumin Arterial Blood Glucose Urine WBC (Auto) Urine Creatinine 11/26/19 11/26/19 11/26/19 06:17 10:43 10:43 WBC 11.4 H RBC Hgb Hct MCHC RDW 17.1 H MCV MCH Lymph % (Auto) [place] % (Auto) [place] # Eos # Lymph # (Auto) [place] # (Auto) Eos # (Auto) Seg Neutrophils % Seg Neuts % (Manual) Baso # (Auto) Lymphocytes % (Manual) Monocytes % (Manual) Eosinophils % (Manual) Basophils % (Manual) Seg Neutrophils # Seg Neutrophils # Man Lymphocytes # (Manual) Monocytes # (Manual) Eosinophils # (Manual) Nucleated RBC % Basophils # (Manual) PT INR APTT Heparin Anti-Xa Level ABG pH POC ABG pO2 ABG pO2 ABG HCO3 ABG O2 Saturation ABG Base Excess POC ABG pCO2 ABG Hemoglobin ABG Oxyhemoglobin ABG Glucose Oxyhemoglobin Sodium Potassium Chloride Carbon Dioxide BUN 29 H Creatinine Glucose POC Glucose 107 H Lactic Acid Calcium Phosphorus Magnesium AST ALT Lactate Dehydrogenase Total Bilirubin CK-MB (CK-2) C-Reactive Protein NT-Pro-B Natriuret Pep Total Protein Albumin Arterial Blood Glucose Urine WBC (Auto) Urine Creatinine 11/26/19 11/27/19 11/27/19 17:11 01:53 04:11 WBC RBC Hgb Hct MCHC RDW MCV MCH Lymph % (Auto) [place] % (Auto) [place] # Eos # Lymph # (Auto) [place] # (Auto) Eos # (Auto) Seg Neutrophils % Seg Neuts % (Manual) Baso # (Auto) Lymphocytes % (Manual) Monocytes % (Manual) Eosinophils % (Manual) Basophils % (Manual) Seg Neutrophils # Seg Neutrophils # Man Lymphocytes # (Manual) Monocytes # (Manual) Eosinophils # (Manual) Nucleated RBC % Basophils # (Manual) PT INR APTT Heparin Anti-Xa Level ABG pH POC ABG pO2 ABG pO2 ABG HCO3 29.2 H ABG O2 Saturation ABG Base Excess 3.4 H POC ABG pCO2 ABG Hemoglobin 13.3 L ABG Oxyhemoglobin ABG Glucose Oxyhemoglobin 94.5 L Sodium Potassium Chloride Carbon Dioxide BUN Creatinine Glucose POC Glucose 113 H 108 H Lactic Acid Calcium Phosphorus Magnesium AST ALT Lactate Dehydrogenase Total Bilirubin CK-MB (CK-2) C-Reactive Protein NT-Pro-B Natriuret Pep Total Protein Albumin Arterial Blood Glucose Urine WBC (Auto) Urine Creatinine 11/27/19 11/28/19 11/28/19 05:27 05:00 05:25 WBC RBC Hgb Hct MCHC RDW MCV MCH Lymph % (Auto) [place] % (Auto) [place] # Eos # Lymph # (Auto) [place] # (Auto) Eos # (Auto) Seg Neutrophils % Seg Neuts % (Manual) Baso # (Auto) Lymphocytes % (Manual) Monocytes % (Manual) Eosinophils % (Manual) Basophils % (Manual) Seg Neutrophils # Seg Neutrophils # Man Lymphocytes # (Manual) Monocytes # (Manual) Eosinophils # (Manual) Nucleated RBC % Basophils # (Manual) PT INR APTT Heparin Anti-Xa Level ABG pH POC ABG pO2 68.1 L ABG pO2 ABG HCO3 ABG O2 Saturation ABG Base Excess POC ABG pCO2 ABG Hemoglobin ABG Oxyhemoglobin 91.2 L ABG Glucose Oxyhemoglobin Sodium Potassium Chloride Carbon Dioxide BUN Creatinine Glucose POC Glucose 111 H 110 H Lactic Acid Calcium Phosphorus Magnesium AST ALT Lactate Dehydrogenase Total Bilirubin CK-MB (CK-2) C-Reactive Protein NT-Pro-B Natriuret Pep Total Protein Albumin Arterial Blood Glucose Urine WBC (Auto) Urine Creatinine 11/28/19 11/28/19 11/28/19 12:08 13:47 13:47 WBC 11.3 H RBC Hgb Hct MCHC RDW 16.1 H MCV MCH Lymph % (Auto) [place] % (Auto) 9.9 H [place] # 1.1 H Eos # Lymph # (Auto) [place] # (Auto) Eos # (Auto) Seg Neutrophils % 71.4 H Seg Neuts % (Manual) Baso # (Auto) Lymphocytes % (Manual) Monocytes % (Manual) Eosinophils % (Manual) Basophils % (Manual) Seg Neutrophils # 8.1 H Seg Neutrophils # Man Lymphocytes # (Manual) Monocytes # (Manual) Eosinophils # (Manual) Nucleated RBC % Basophils # (Manual) PT INR APTT Heparin Anti-Xa Level ABG pH POC ABG pO2 ABG pO2 ABG HCO3 ABG O2 Saturation ABG Base Excess POC ABG pCO2 ABG Hemoglobin ABG Oxyhemoglobin ABG Glucose Oxyhemoglobin Sodium Potassium Chloride Carbon Dioxide BUN 23 H Creatinine Glucose 123 H POC Glucose 112 H Lactic Acid Calcium Phosphorus Magnesium AST ALT Lactate Dehydrogenase Total Bilirubin CK-MB (CK-2) C-Reactive Protein NT-Pro-B Natriuret Pep Total Protein Albumin 3.7 L Arterial Blood Glucose Urine WBC (Auto) Urine Creatinine 11/28/19 11/29/19 11/29/19 17:26 03:55 17:04 WBC RBC Hgb Hct MCHC RDW MCV MCH Lymph % (Auto) [place] % (Auto) [place] # Eos # Lymph # (Auto) [place] # (Auto) Eos # (Auto) Seg Neutrophils % Seg Neuts % (Manual) Baso # (Auto) Lymphocytes % (Manual) Monocytes % (Manual) Eosinophils % (Manual) Basophils % (Manual) Seg Neutrophils # Seg Neutrophils # Man Lymphocytes # (Manual) Monocytes # (Manual) Eosinophils # (Manual) Nucleated RBC % Basophils # (Manual) PT INR APTT Heparin Anti-Xa Level ABG pH POC ABG pO2 ABG pO2 65.7 L ABG HCO3 28.3 H ABG O2 Saturation 93.9 L ABG Base Excess 3.6 H POC ABG pCO2 ABG Hemoglobin 13.3 L ABG Oxyhemoglobin ABG Glucose Oxyhemoglobin 91.5 L Sodium Potassium Chloride Carbon Dioxide BUN Creatinine Glucose POC Glucose 123 H 119 H Lactic Acid Calcium Phosphorus Magnesium AST ALT Lactate Dehydrogenase Total Bilirubin CK-MB (CK-2) C-Reactive Protein NT-Pro-B Natriuret Pep Total Protein Albumin Arterial Blood Glucose Urine WBC (Auto) Urine Creatinine 11/30/19 11/30/19 11/30/19 04:17 04:17 04:56 WBC 13.4 H RBC Hgb Hct MCHC RDW 15.6 H MCV MCH Lymph % (Auto) [place] % (Auto) [place] # Eos # Lymph # (Auto) [place] # (Auto) Eos # (Auto) Seg Neutrophils % Seg Neuts % (Manual) Baso # (Auto) Lymphocytes % (Manual) Monocytes % (Manual) Eosinophils % (Manual) Basophils % (Manual) Seg Neutrophils # Seg Neutrophils # Man Lymphocytes # (Manual) Monocytes # (Manual) Eosinophils # (Manual) Nucleated RBC % Basophils # (Manual) PT INR APTT Heparin Anti-Xa Level ABG pH POC ABG pO2 ABG pO2 56.3 L ABG HCO3 29.3 H ABG O2 Saturation 91.5 L ABG Base Excess 4.7 H POC ABG pCO2 ABG Hemoglobin 12.1 L ABG Oxyhemoglobin ABG Glucose Oxyhemoglobin 89.2 L Sodium 147 H Potassium Chloride Carbon Dioxide BUN 30 H Creatinine Glucose 124 H POC Glucose Lactic Acid Calcium Phosphorus Magnesium AST ALT Lactate Dehydrogenase Total Bilirubin CK-MB (CK-2) C-Reactive Protein NT-Pro-B Natriuret Pep Total Protein Albumin 3.8 L Arterial Blood Glucose Urine WBC (Auto) Urine Creatinine 11/30/19 11/30/19 11/30/19 05:51 11:54 18:17 WBC RBC Hgb Hct MCHC RDW MCV MCH Lymph % (Auto) [place] % (Auto) [place] # Eos # Lymph # (Auto) [place] # (Auto) Eos # (Auto) Seg Neutrophils % Seg Neuts % (Manual) Baso # (Auto) Lymphocytes % (Manual) Monocytes % (Manual) Eosinophils % (Manual) Basophils % (Manual) Seg Neutrophils # Seg Neutrophils # Man Lymphocytes # (Manual) Monocytes # (Manual) Eosinophils # (Manual) Nucleated RBC % Basophils # (Manual) PT INR APTT Heparin Anti-Xa Level ABG pH POC ABG pO2 ABG pO2 ABG HCO3 ABG O2 Saturation ABG Base Excess POC ABG pCO2 ABG Hemoglobin ABG Oxyhemoglobin ABG Glucose Oxyhemoglobin Sodium Potassium Chloride Carbon Dioxide BUN Creatinine Glucose POC Glucose 127 H 115 H 143 H Lactic Acid Calcium Phosphorus Magnesium AST ALT Lactate Dehydrogenase Total Bilirubin CK-MB (CK-2) C-Reactive Protein NT-Pro-B Natriuret Pep Total Protein Albumin Arterial Blood Glucose Urine WBC (Auto) Urine Creatinine 12/01/19 12/01/19 12/01/19 01:18 05:22 12:16 WBC RBC Hgb Hct MCHC RDW MCV MCH Lymph % (Auto) [place] % (Auto) [place] # Eos # Lymph # (Auto) [place] # (Auto) Eos # (Auto) Seg Neutrophils % Seg Neuts % (Manual) Baso # (Auto) Lymphocytes % (Manual) Monocytes % (Manual) Eosinophils % (Manual) Basophils % (Manual) Seg Neutrophils # Seg Neutrophils # Man Lymphocytes # (Manual) Monocytes # (Manual) Eosinophils # (Manual) Nucleated RBC % Basophils # (Manual) PT INR APTT Heparin Anti-Xa Level ABG pH POC ABG pO2 ABG pO2 ABG HCO3 ABG O2 Saturation ABG Base Excess POC ABG pCO2 ABG Hemoglobin ABG Oxyhemoglobin ABG Glucose Oxyhemoglobin Sodium Potassium 3.5 L Chloride 107.8 H Carbon Dioxide BUN 37 H Creatinine Glucose 157 H POC Glucose 118 H 148 H Lactic Acid Calcium 8.2 L D Phosphorus Magnesium AST 48 H ALT 60 H Lactate Dehydrogenase 194 H Total Bilirubin CK-MB (CK-2) C-Reactive Protein 8.50 H NT-Pro-B Natriuret Pep Total Protein 5.5 L Albumin 2.8 L Arterial Blood Glucose Urine WBC (Auto) Urine Creatinine 12/01/19 12/02/19 12/02/19 18:04 00:05 05:16 WBC 11.4 H RBC Hgb Hct MCHC RDW 15.9 H MCV MCH Lymph % (Auto) [place] % (Auto) 9.9 H [place] # 1.1 H Eos # Lymph # (Auto) [place] # (Auto) Eos # (Auto) Seg Neutrophils % 70.3 H Seg Neuts % (Manual) Baso # (Auto) Lymphocytes % (Manual) Monocytes % (Manual) Eosinophils % (Manual) Basophils % (Manual) Seg Neutrophils # 8.0 H Seg Neutrophils # Man Lymphocytes # (Manual) Monocytes # (Manual) Eosinophils # (Manual) Nucleated RBC % Basophils # (Manual) PT INR APTT Heparin Anti-Xa Level ABG pH POC ABG pO2 ABG pO2 ABG HCO3 ABG O2 Saturation ABG Base Excess POC ABG pCO2 ABG Hemoglobin ABG Oxyhemoglobin ABG Glucose Oxyhemoglobin Sodium Potassium Chloride Carbon Dioxide BUN Creatinine Glucose POC Glucose 143 H 107 H Lactic Acid Calcium Phosphorus Magnesium AST ALT Lactate Dehydrogenase Total Bilirubin CK-MB (CK-2) C-Reactive Protein NT-Pro-B Natriuret Pep Total Protein Albumin Arterial Blood Glucose Urine WBC (Auto) Urine Creatinine 12/02/19 12/02/19 12/02/19 05:16 06:03 11:52 WBC RBC Hgb Hct MCHC RDW MCV MCH Lymph % (Auto) [place] % (Auto) [place] # Eos # Lymph # (Auto) [place] # (Auto) Eos # (Auto) Seg Neutrophils % Seg Neuts % (Manual) Baso # (Auto) Lymphocytes % (Manual) Monocytes % (Manual) Eosinophils % (Manual) Basophils % (Manual) Seg Neutrophils # Seg Neutrophils # Man Lymphocytes # (Manual) Monocytes # (Manual) Eosinophils # (Manual) Nucleated RBC % Basophils # (Manual) PT INR APTT Heparin Anti-Xa Level ABG pH POC ABG pO2 ABG pO2 ABG HCO3 ABG O2 Saturation ABG Base Excess POC ABG pCO2 ABG Hemoglobin ABG Oxyhemoglobin ABG Glucose Oxyhemoglobin Sodium 146 H Potassium Chloride Carbon Dioxide BUN 28 H Creatinine Glucose 123 H POC Glucose 110 H 152 H Lactic Acid Calcium Phosphorus Magnesium AST ALT Lactate Dehydrogenase Total Bilirubin CK-MB (CK-2) C-Reactive Protein NT-Pro-B Natriuret Pep Total Protein Albumin Arterial Blood Glucose Urine WBC (Auto) Urine Creatinine 12/02/19 12/02/19 12/02/19 12:58 17:58 23:36 WBC RBC Hgb Hct MCHC RDW MCV MCH Lymph % (Auto) [place] % (Auto) [place] # Eos # Lymph # (Auto) [place] # (Auto) Eos # (Auto) Seg Neutrophils % Seg Neuts % (Manual) Baso # (Auto) Lymphocytes % (Manual) Monocytes % (Manual) Eosinophils % (Manual) Basophils % (Manual) Seg Neutrophils # Seg Neutrophils # Man Lymphocytes # (Manual) Monocytes # (Manual) Eosinophils # (Manual) Nucleated RBC % Basophils # (Manual) PT INR APTT Heparin Anti-Xa Level ABG pH POC ABG pO2 78.1 L ABG pO2 ABG HCO3 ABG O2 Saturation ABG Base Excess POC ABG pCO2 ABG Hemoglobin ABG Oxyhemoglobin ABG Glucose Oxyhemoglobin Sodium Potassium Chloride Carbon Dioxide BUN Creatinine Glucose POC Glucose 120 H 123 H Lactic Acid Calcium Phosphorus Magnesium AST ALT Lactate Dehydrogenase Total Bilirubin CK-MB (CK-2) C-Reactive Protein NT-Pro-B Natriuret Pep Total Protein Albumin Arterial Blood Glucose Urine WBC (Auto) Urine Creatinine 12/03/19 12/03/19 12/03/19 06:03 06:14 11:46 WBC RBC Hgb Hct MCHC RDW MCV MCH Lymph % (Auto) [place] % (Auto) [place] # Eos # Lymph # (Auto) [place] # (Auto) Eos # (Auto) Seg Neutrophils % Seg Neuts % (Manual) Baso # (Auto) Lymphocytes % (Manual) Monocytes % (Manual) Eosinophils % (Manual) Basophils % (Manual) Seg Neutrophils # Seg Neutrophils # Man Lymphocytes # (Manual) Monocytes # (Manual) Eosinophils # (Manual) Nucleated RBC % Basophils # (Manual) PT INR APTT Heparin Anti-Xa Level ABG pH POC ABG pO2 ABG pO2 ABG HCO3 ABG O2 Saturation ABG Base Excess POC ABG pCO2 ABG Hemoglobin ABG Oxyhemoglobin ABG Glucose Oxyhemoglobin Sodium Potassium Chloride Carbon Dioxide BUN Creatinine Glucose POC Glucose 142 H 130 H Lactic Acid Calcium Phosphorus Magnesium AST ALT Lactate Dehydrogenase Total Bilirubin CK-MB (CK-2) C-Reactive Protein NT-Pro-B Natriuret Pep Total Protein Albumin Arterial Blood Glucose Urine WBC (Auto) 8.0 H Urine Creatinine 12/03/19 12/03/19 12/04/19 15:50 17:39 00:04 WBC RBC Hgb Hct MCHC RDW MCV MCH Lymph % (Auto) [place] % (Auto) [place] # Eos # Lymph # (Auto) [place] # (Auto) Eos # (Auto) Seg Neutrophils % Seg Neuts % (Manual) Baso # (Auto) Lymphocytes % (Manual) Monocytes % (Manual) Eosinophils % (Manual) Basophils % (Manual) Seg Neutrophils # Seg Neutrophils # Man Lymphocytes # (Manual) Monocytes # (Manual) Eosinophils # (Manual) Nucleated RBC % Basophils # (Manual) PT INR APTT Heparin Anti-Xa Level ABG pH POC ABG pO2 ABG pO2 ABG HCO3 ABG O2 Saturation ABG Base Excess POC ABG pCO2 ABG Hemoglobin ABG Oxyhemoglobin ABG Glucose Oxyhemoglobin Sodium Potassium Chloride Carbon Dioxide BUN Creatinine Glucose POC Glucose 146 H 133 H Lactic Acid Calcium Phosphorus 2.40 L Magnesium AST ALT Lactate Dehydrogenase Total Bilirubin CK-MB (CK-2) C-Reactive Protein NT-Pro-B Natriuret Pep Total Protein Albumin Arterial Blood Glucose Urine WBC (Auto) Urine Creatinine 12/04/19 12/04/19 12/04/19 03:58 03:58 05:22 WBC 12.5 H RBC Hgb 11.2 L Hct 35.2 L MCHC RDW 16.0 H MCV MCH Lymph % (Auto) [place] % (Auto) 9.6 H [place] # 1.2 H Eos # 0.5 H Lymph # (Auto) [place] # (Auto) Eos # (Auto) Seg Neutrophils % Seg Neuts % (Manual) Baso # (Auto) Lymphocytes % (Manual) Monocytes % (Manual) Eosinophils % (Manual) Basophils % (Manual) Seg Neutrophils # 8.6 H Seg Neutrophils # Man Lymphocytes # (Manual) Monocytes # (Manual) Eosinophils # (Manual) Nucleated RBC % Basophils # (Manual) PT INR APTT Heparin Anti-Xa Level ABG pH POC ABG pO2 ABG pO2 ABG HCO3 ABG O2 Saturation ABG Base Excess POC ABG pCO2 ABG Hemoglobin ABG Oxyhemoglobin ABG Glucose Oxyhemoglobin Sodium 146 H Potassium Chloride 108.6 H Carbon Dioxide BUN 30 H Creatinine 0.7 L Glucose 121 H POC Glucose 132 H Lactic Acid Calcium Phosphorus Magnesium AST ALT Lactate Dehydrogenase Total Bilirubin CK-MB (CK-2) C-Reactive Protein NT-Pro-B Natriuret Pep Total Protein Albumin Arterial Blood Glucose Urine WBC (Auto) Urine Creatinine 12/04/19 12/04/19 12/05/19 13:26 18:43 00:19 WBC RBC Hgb Hct MCHC RDW MCV MCH Lymph % (Auto) [place] % (Auto) [place] # Eos # Lymph # (Auto) [place] # (Auto) Eos # (Auto) Seg Neutrophils % Seg Neuts % (Manual) Baso # (Auto) Lymphocytes % (Manual) Monocytes % (Manual) Eosinophils % (Manual) Basophils % (Manual) Seg Neutrophils # Seg Neutrophils # Man Lymphocytes # (Manual) Monocytes # (Manual) Eosinophils # (Manual) Nucleated RBC % Basophils # (Manual) PT INR APTT Heparin Anti-Xa Level ABG pH POC ABG pO2 ABG pO2 ABG HCO3 ABG O2 Saturation ABG Base Excess POC ABG pCO2 ABG Hemoglobin ABG Oxyhemoglobin ABG Glucose Oxyhemoglobin Sodium Potassium Chloride Carbon Dioxide BUN Creatinine Glucose POC Glucose 185 H 156 H 150 H Lactic Acid Calcium Phosphorus Magnesium AST ALT Lactate Dehydrogenase Total Bilirubin CK-MB (CK-2) C-Reactive Protein NT-Pro-B Natriuret Pep Total Protein Albumin Arterial Blood Glucose Urine WBC (Auto) Urine Creatinine 12/05/19 12/05/19 12/05/19 03:37 03:37 05:14 WBC 16.3 H RBC Hgb 11.4 L Hct MCHC RDW 15.6 H MCV MCH Lymph % (Auto) 9.9 L [place] % (Auto) 9.7 H [place] # 1.6 H Eos # Lymph # (Auto) [place] # (Auto) Eos # (Auto) Seg Neutrophils % 78.0 H Seg Neuts % (Manual) Baso # (Auto) Lymphocytes % (Manual) Monocytes % (Manual) Eosinophils % (Manual) Basophils % (Manual) Seg Neutrophils # 12.7 H Seg Neutrophils # Man Lymphocytes # (Manual) Monocytes # (Manual) Eosinophils # (Manual) Nucleated RBC % Basophils # (Manual) PT INR APTT Heparin Anti-Xa Level ABG pH POC ABG pO2 ABG pO2 ABG HCO3 ABG O2 Saturation ABG Base Excess POC ABG pCO2 ABG Hemoglobin ABG Oxyhemoglobin ABG Glucose Oxyhemoglobin Sodium 146 H Potassium Chloride 107.2 H Carbon Dioxide BUN 27 H Creatinine 0.7 L Glucose 171 H POC Glucose 168 H Lactic Acid Calcium Phosphorus Magnesium AST ALT Lactate Dehydrogenase Total Bilirubin CK-MB (CK-2) C-Reactive Protein NT-Pro-B Natriuret Pep Total Protein Albumin Arterial Blood Glucose Urine WBC (Auto) Urine Creatinine 12/05/19 12/05/19 12/05/19 12:31 18:10 23:58 WBC RBC Hgb Hct MCHC RDW MCV MCH Lymph % (Auto) [place] % (Auto) [place] # Eos # Lymph # (Auto) [place] # (Auto) Eos # (Auto) Seg Neutrophils % Seg Neuts % (Manual) Baso # (Auto) Lymphocytes % (Manual) Monocytes % (Manual) Eosinophils % (Manual) Basophils % (Manual) Seg Neutrophils # Seg Neutrophils # Man Lymphocytes # (Manual) Monocytes # (Manual) Eosinophils # (Manual) Nucleated RBC % Basophils # (Manual) PT INR APTT Heparin Anti-Xa Level ABG pH POC ABG pO2 ABG pO2 ABG HCO3 ABG O2 Saturation ABG Base Excess POC ABG pCO2 ABG Hemoglobin ABG Oxyhemoglobin ABG Glucose Oxyhemoglobin Sodium Potassium Chloride Carbon Dioxide BUN Creatinine Glucose POC Glucose 159 H 198 H 115 H Lactic Acid Calcium Phosphorus Magnesium AST ALT Lactate Dehydrogenase Total Bilirubin CK-MB (CK-2) C-Reactive Protein NT-Pro-B Natriuret Pep Total Protein Albumin Arterial Blood Glucose Urine WBC (Auto) Urine Creatinine 12/06/19 12/06/19 12/06/19 05:24 05:24 05:25 WBC 14.9 H RBC Hgb 10.8 L Hct 34.0 L MCHC RDW 15.6 H MCV MCH Lymph % (Auto) 10.7 L [place] % (Auto) 8.3 H [place] # 1.2 H Eos # Lymph # (Auto) [place] # (Auto) Eos # (Auto) Seg Neutrophils % 78.7 H Seg Neuts % (Manual) Baso # (Auto) Lymphocytes % (Manual) Monocytes % (Manual) Eosinophils % (Manual) Basophils % (Manual) Seg Neutrophils # 11.7 H Seg Neutrophils # Man Lymphocytes # (Manual) Monocytes # (Manual) Eosinophils # (Manual) Nucleated RBC % Basophils # (Manual) PT INR APTT Heparin Anti-Xa Level ABG pH POC ABG pO2 ABG pO2 ABG HCO3 ABG O2 Saturation ABG Base Excess POC ABG pCO2 ABG Hemoglobin ABG Oxyhemoglobin ABG Glucose Oxyhemoglobin Sodium 148 H Potassium 5.1 H Chloride 107.6 H Carbon Dioxide BUN 27 H Creatinine 0.7 L Glucose 155 H POC Glucose 157 H Lactic Acid Calcium Phosphorus Magnesium AST ALT Lactate Dehydrogenase Total Bilirubin CK-MB (CK-2) C-Reactive Protein NT-Pro-B Natriuret Pep Total Protein Albumin Arterial Blood Glucose Urine WBC (Auto) Urine Creatinine 12/07/19 12/07/19 12/07/19 00:13 05:34 11:33 WBC RBC Hgb Hct MCHC RDW MCV MCH Lymph % (Auto) [place] % (Auto) [place] # Eos # Lymph # (Auto) [place] # (Auto) Eos # (Auto) Seg Neutrophils % Seg Neuts % (Manual) Baso # (Auto) Lymphocytes % (Manual) Monocytes % (Manual) Eosinophils % (Manual) Basophils % (Manual) Seg Neutrophils # Seg Neutrophils # Man Lymphocytes # (Manual) Monocytes # (Manual) Eosinophils # (Manual) Nucleated RBC % Basophils # (Manual) PT INR APTT Heparin Anti-Xa Level ABG pH POC ABG pO2 ABG pO2 ABG HCO3 ABG O2 Saturation ABG Base Excess POC ABG pCO2 ABG Hemoglobin ABG Oxyhemoglobin ABG Glucose Oxyhemoglobin Sodium Potassium Chloride Carbon Dioxide BUN Creatinine Glucose POC Glucose 142 H 111 H 169 H Lactic Acid Calcium Phosphorus Magnesium AST ALT Lactate Dehydrogenase Total Bilirubin CK-MB (CK-2) C-Reactive Protein NT-Pro-B Natriuret Pep Total Protein Albumin Arterial Blood Glucose Urine WBC (Auto) Urine Creatinine 12/07/19 12/07/19 12/07/19 12:41 13:25 18:19 WBC 12.4 H RBC 3.53 L Hgb 10.2 L Hct 32.1 L MCHC RDW 15.3 H MCV MCH Lymph % (Auto) 10.6 L [place] % (Auto) 7.8 H [place] # 1.0 H Eos # Lymph # (Auto) [place] # (Auto) Eos # (Auto) Seg Neutrophils % 77.6 H Seg Neuts % (Manual) Baso # (Auto) Lymphocytes % (Manual) Monocytes % (Manual) Eosinophils % (Manual) Basophils % (Manual) Seg Neutrophils # 9.6 H Seg Neutrophils # Man Lymphocytes # (Manual) Monocytes # (Manual) Eosinophils # (Manual) Nucleated RBC % Basophils # (Manual) PT INR APTT Heparin Anti-Xa Level ABG pH POC ABG pO2 ABG pO2 ABG HCO3 ABG O2 Saturation ABG Base Excess POC ABG pCO2 ABG Hemoglobin ABG Oxyhemoglobin ABG Glucose Oxyhemoglobin Sodium 149 H Potassium Chloride 108.4 H Carbon Dioxide BUN 26 H Creatinine 0.6 L Glucose 149 H POC Glucose 164 H Lactic Acid Calcium Phosphorus Magnesium 2.60 H AST 121 H ALT 145 H Lactate Dehydrogenase Total Bilirubin CK-MB (CK-2) C-Reactive Protein NT-Pro-B Natriuret Pep Total Protein Albumin 2.6 L Arterial Blood Glucose Urine WBC (Auto) Urine Creatinine 12/07/19 12/08/19 12/08/19 22:25 00:02 03:55 WBC 13.3 H RBC 3.40 L Hgb 9.7 L Hct 30.8 L MCHC 31 L RDW 15.5 H MCV MCH Lymph % (Auto) [place] % (Auto) 8.1 H [place] # 1.1 H Eos # Lymph # (Auto) [place] # (Auto) Eos # (Auto) Seg Neutrophils % 73.0 H Seg Neuts % (Manual) Baso # (Auto) Lymphocytes % (Manual) Monocytes % (Manual) Eosinophils % (Manual) Basophils % (Manual) Seg Neutrophils # 9.7 H Seg Neutrophils # Man Lymphocytes # (Manual) Monocytes # (Manual) Eosinophils # (Manual) Nucleated RBC % Basophils # (Manual) PT INR APTT Heparin Anti-Xa Level 0.12 L ABG pH POC ABG pO2 ABG pO2 ABG HCO3 ABG O2 Saturation ABG Base Excess POC ABG pCO2 ABG Hemoglobin ABG Oxyhemoglobin ABG Glucose Oxyhemoglobin Sodium Potassium Chloride Carbon Dioxide BUN Creatinine Glucose POC Glucose 151 H Lactic Acid Calcium Phosphorus Magnesium AST ALT Lactate Dehydrogenase Total Bilirubin CK-MB (CK-2) C-Reactive Protein NT-Pro-B Natriuret Pep Total Protein Albumin Arterial Blood Glucose Urine WBC (Auto) Urine Creatinine 12/08/19 12/08/19 12/08/19 03:55 05:21 06:01 WBC RBC Hgb Hct MCHC RDW MCV MCH Lymph % (Auto) [place] % (Auto) [place] # Eos # Lymph # (Auto) [place] # (Auto) Eos # (Auto) Seg Neutrophils % Seg Neuts % (Manual) Baso # (Auto) Lymphocytes % (Manual) Monocytes % (Manual) Eosinophils % (Manual) Basophils % (Manual) Seg Neutrophils # Seg Neutrophils # Man Lymphocytes # (Manual) Monocytes # (Manual) Eosinophils # (Manual) Nucleated RBC % Basophils # (Manual) PT INR APTT Heparin Anti-Xa Level 0.20 L ABG pH POC ABG pO2 ABG pO2 ABG HCO3 ABG O2 Saturation ABG Base Excess POC ABG pCO2 ABG Hemoglobin ABG Oxyhemoglobin ABG Glucose Oxyhemoglobin Sodium 149 H Potassium Chloride 108.0 H Carbon Dioxide BUN 28 H Creatinine 0.6 L Glucose 144 H POC Glucose 143 H Lactic Acid Calcium Phosphorus Magnesium AST 98 H ALT 145 H Lactate Dehydrogenase Total Bilirubin CK-MB (CK-2) C-Reactive Protein NT-Pro-B Natriuret Pep Total Protein 6.0 L Albumin 2.4 L Arterial Blood Glucose Urine WBC (Auto) Urine Creatinine 12/08/19 12/08/19 12/08/19 12:08 18:11 23:53 WBC RBC Hgb Hct MCHC RDW MCV MCH Lymph % (Auto) [place] % (Auto) [place] # Eos # Lymph # (Auto) [place] # (Auto) Eos # (Auto) Seg Neutrophils % Seg Neuts % (Manual) Baso # (Auto) Lymphocytes % (Manual) Monocytes % (Manual) Eosinophils % (Manual) Basophils % (Manual) Seg Neutrophils # Seg Neutrophils # Man Lymphocytes # (Manual) Monocytes # (Manual) Eosinophils # (Manual) Nucleated RBC % Basophils # (Manual) PT INR APTT Heparin Anti-Xa Level ABG pH POC ABG pO2 ABG pO2 ABG HCO3 ABG O2 Saturation ABG Base Excess POC ABG pCO2 ABG Hemoglobin ABG Oxyhemoglobin ABG Glucose Oxyhemoglobin Sodium Potassium Chloride Carbon Dioxide BUN Creatinine Glucose POC Glucose 172 H 122 H 162 H Lactic Acid Calcium Phosphorus Magnesium AST ALT Lactate Dehydrogenase Total Bilirubin CK-MB (CK-2) C-Reactive Protein NT-Pro-B Natriuret Pep Total Protein Albumin Arterial Blood Glucose Urine WBC (Auto) Urine Creatinine 12/09/19 12/09/19 12/09/19 04:03 04:03 05:53 WBC RBC Hgb 9.1 L Hct 28.9 L MCHC RDW MCV MCH Lymph % (Auto) [place] % (Auto) [place] # Eos # Lymph # (Auto) [place] # (Auto) Eos # (Auto) Seg Neutrophils % Seg Neuts % (Manual) Baso # (Auto) Lymphocytes % (Manual) Monocytes % (Manual) Eosinophils % (Manual) Basophils % (Manual) Seg Neutrophils # Seg Neutrophils # Man Lymphocytes # (Manual) Monocytes # (Manual) Eosinophils # (Manual) Nucleated RBC % Basophils # (Manual) PT INR APTT Heparin Anti-Xa Level 0.15 L ABG pH POC ABG pO2 ABG pO2 ABG HCO3 ABG O2 Saturation ABG Base Excess POC ABG pCO2 ABG Hemoglobin ABG Oxyhemoglobin ABG Glucose Oxyhemoglobin Sodium Potassium Chloride Carbon Dioxide BUN Creatinine Glucose POC Glucose 124 H Lactic Acid Calcium Phosphorus Magnesium AST ALT Lactate Dehydrogenase Total Bilirubin CK-MB (CK-2) C-Reactive Protein NT-Pro-B Natriuret Pep Total Protein Albumin Arterial Blood Glucose Urine WBC (Auto) Urine Creatinine 12/09/19 12/09/19 12/10/19 09:43 12:41 00:13 WBC RBC Hgb Hct MCHC RDW MCV MCH Lymph % (Auto) [place] % (Auto) [place] # Eos # Lymph # (Auto) [place] # (Auto) Eos # (Auto) Seg Neutrophils % Seg Neuts % (Manual) Baso # (Auto) Lymphocytes % (Manual) Monocytes % (Manual) Eosinophils % (Manual) Basophils % (Manual) Seg Neutrophils # Seg Neutrophils # Man Lymphocytes # (Manual) Monocytes # (Manual) Eosinophils # (Manual) Nucleated RBC % Basophils # (Manual) PT INR APTT Heparin Anti-Xa Level ABG pH POC ABG pO2 ABG pO2 ABG HCO3 ABG O2 Saturation ABG Base Excess POC ABG pCO2 ABG Hemoglobin ABG Oxyhemoglobin ABG Glucose Oxyhemoglobin Sodium Potassium Chloride Carbon Dioxide BUN 25 H Creatinine 0.6 L Glucose 131 H POC Glucose 109 H 120 H Lactic Acid Calcium Phosphorus Magnesium AST ALT Lactate Dehydrogenase Total Bilirubin CK-MB (CK-2) C-Reactive Protein NT-Pro-B Natriuret Pep Total Protein Albumin Arterial Blood Glucose Urine WBC (Auto) Urine Creatinine 12/10/19 12/10/19 12/10/19 04:14 04:14 12:00 WBC 13.3 H RBC 3.34 L Hgb 9.6 L Hct 30.4 L MCHC RDW 15.4 H MCV MCH Lymph % (Auto) [place] % (Auto) [place] # Eos # Lymph # (Auto) [place] # (Auto) Eos # (Auto) Seg Neutrophils % Seg Neuts % (Manual) 75.0 H Baso # (Auto) Lymphocytes % (Manual) 13.0 L Monocytes % (Manual) 8.0 H Eosinophils % (Manual) Basophils % (Manual) 2.0 H Seg Neutrophils # Seg Neutrophils # Man 10.0 H Lymphocytes # (Manual) Monocytes # (Manual) 1.1 H Eosinophils # (Manual) Nucleated RBC % Basophils # (Manual) 0.3 H PT INR APTT Heparin Anti-Xa Level ABG pH POC ABG pO2 ABG pO2 ABG HCO3 ABG O2 Saturation ABG Base Excess POC ABG pCO2 ABG Hemoglobin ABG Oxyhemoglobin ABG Glucose Oxyhemoglobin Sodium 147 H Potassium Chloride 108.3 H Carbon Dioxide BUN 21 H Creatinine 0.6 L Glucose 104 H POC Glucose 133 H Lactic Acid Calcium Phosphorus Magnesium AST ALT Lactate Dehydrogenase Total Bilirubin CK-MB (CK-2) C-Reactive Protein NT-Pro-B Natriuret Pep Total Protein Albumin Arterial Blood Glucose Urine WBC (Auto) Urine Creatinine 12/10/19 12/10/19 12/11/19 18:44 21:20 00:08 WBC 14.9 H RBC 3.36 L Hgb 9.6 L Hct 30.5 L MCHC RDW 15.4 H MCV MCH Lymph % (Auto) [place] % (Auto) [place] # Eos # Lymph # (Auto) [place] # (Auto) Eos # (Auto) Seg Neutrophils % Seg Neuts % (Manual) Baso # (Auto) Lymphocytes % (Manual) Monocytes % (Manual) Eosinophils % (Manual) Basophils % (Manual) Seg Neutrophils # Seg Neutrophils # Man Lymphocytes # (Manual) Monocytes # (Manual) Eosinophils # (Manual) Nucleated RBC % Basophils # (Manual) PT INR APTT Heparin Anti-Xa Level ABG pH POC ABG pO2 ABG pO2 ABG HCO3 ABG O2 Saturation ABG Base Excess POC ABG pCO2 ABG Hemoglobin ABG Oxyhemoglobin ABG Glucose Oxyhemoglobin Sodium Potassium Chloride Carbon Dioxide BUN Creatinine Glucose POC Glucose 119 H 134 H Lactic Acid Calcium Phosphorus Magnesium AST ALT Lactate Dehydrogenase Total Bilirubin CK-MB (CK-2) C-Reactive Protein NT-Pro-B Natriuret Pep Total Protein Albumin Arterial Blood Glucose Urine WBC (Auto) Urine Creatinine 12/11/19 12/11/19 12/11/19 03:54 07:28 08:36 WBC 11.9 H RBC 3.25 L Hgb 9.6 L Hct 29.2 L MCHC RDW 15.7 H MCV MCH Lymph % (Auto) [place] % (Auto) [place] # Eos # Lymph # (Auto) [place] # (Auto) Eos # (Auto) Seg Neutrophils % Seg Neuts % (Manual) Baso # (Auto) Lymphocytes % (Manual) Monocytes % (Manual) Eosinophils % (Manual) Basophils % (Manual) Seg Neutrophils # Seg Neutrophils # Man Lymphocytes # (Manual) Monocytes # (Manual) Eosinophils # (Manual) Nucleated RBC % Basophils # (Manual) PT INR APTT Heparin Anti-Xa Level 0.10 L 0.16 L ABG pH POC ABG pO2 ABG pO2 ABG HCO3 ABG O2 Saturation ABG Base Excess POC ABG pCO2 ABG Hemoglobin ABG Oxyhemoglobin ABG Glucose Oxyhemoglobin Sodium Potassium Chloride Carbon Dioxide BUN Creatinine Glucose POC Glucose Lactic Acid Calcium Phosphorus Magnesium AST ALT Lactate Dehydrogenase Total Bilirubin CK-MB (CK-2) C-Reactive Protein NT-Pro-B Natriuret Pep Total Protein Albumin Arterial Blood Glucose Urine WBC (Auto) Urine Creatinine 12/11/19 12/11/19 12/11/19 08:36 11:45 17:15 WBC RBC Hgb Hct MCHC RDW MCV MCH Lymph % (Auto) [place] % (Auto) [place] # Eos # Lymph # (Auto) [place] # (Auto) Eos # (Auto) Seg Neutrophils % Seg Neuts % (Manual) Baso # (Auto) Lymphocytes % (Manual) Monocytes % (Manual) Eosinophils % (Manual) Basophils % (Manual) Seg Neutrophils # Seg Neutrophils # Man Lymphocytes # (Manual) Monocytes # (Manual) Eosinophils # (Manual) Nucleated RBC % Basophils # (Manual) PT INR APTT Heparin Anti-Xa Level ABG pH POC ABG pO2 ABG pO2 ABG HCO3 ABG O2 Saturation ABG Base Excess POC ABG pCO2 ABG Hemoglobin ABG Oxyhemoglobin ABG Glucose Oxyhemoglobin Sodium Potassium Chloride Carbon Dioxide BUN Creatinine 0.5 L Glucose 128 H POC Glucose 136 H 109 H Lactic Acid Calcium Phosphorus Magnesium AST ALT Lactate Dehydrogenase Total Bilirubin CK-MB (CK-2) C-Reactive Protein NT-Pro-B Natriuret Pep Total Protein Albumin Arterial Blood Glucose Urine WBC (Auto) Urine Creatinine 12/12/19 12/12/19 12/12/19 00:03 05:53 05:53 WBC RBC Hgb 8.8 L Hct 27.6 L MCHC RDW MCV MCH Lymph % (Auto) [place] % (Auto) [place] # Eos # Lymph # (Auto) [place] # (Auto) Eos # (Auto) Seg Neutrophils % Seg Neuts % (Manual) Baso # (Auto) Lymphocytes % (Manual) Monocytes % (Manual) Eosinophils % (Manual) Basophils % (Manual) Seg Neutrophils # Seg Neutrophils # Man Lymphocytes # (Manual) Monocytes # (Manual) Eosinophils # (Manual) Nucleated RBC % Basophils # (Manual) PT INR APTT Heparin Anti-Xa Level 0.22 L ABG pH POC ABG pO2 ABG pO2 ABG HCO3 ABG O2 Saturation ABG Base Excess POC ABG pCO2 ABG Hemoglobin ABG Oxyhemoglobin ABG Glucose Oxyhemoglobin Sodium Potassium Chloride Carbon Dioxide BUN Creatinine Glucose POC Glucose 116 H Lactic Acid Calcium Phosphorus Magnesium AST ALT Lactate Dehydrogenase Total Bilirubin CK-MB (CK-2) C-Reactive Protein NT-Pro-B Natriuret Pep Total Protein Albumin Arterial Blood Glucose Urine WBC (Auto) Urine Creatinine 12/12/19 12/12/19 12/12/19 09:38 12:18 17:44 WBC RBC Hgb Hct MCHC RDW MCV MCH Lymph % (Auto) [place] % (Auto) [place] # Eos # Lymph # (Auto) [place] # (Auto) Eos # (Auto) Seg Neutrophils % Seg Neuts % (Manual) Baso # (Auto) Lymphocytes % (Manual) Monocytes % (Manual) Eosinophils % (Manual) Basophils % (Manual) Seg Neutrophils # Seg Neutrophils # Man Lymphocytes # (Manual) Monocytes # (Manual) Eosinophils # (Manual) Nucleated RBC % Basophils # (Manual) PT INR APTT Heparin Anti-Xa Level ABG pH POC ABG pO2 ABG pO2 ABG HCO3 ABG O2 Saturation ABG Base Excess POC ABG pCO2 ABG Hemoglobin ABG Oxyhemoglobin ABG Glucose Oxyhemoglobin Sodium Potassium Chloride Carbon Dioxide BUN Creatinine Glucose POC Glucose 115 H 146 H 146 H Lactic Acid Calcium Phosphorus Magnesium AST ALT Lactate Dehydrogenase Total Bilirubin CK-MB (CK-2) C-Reactive Protein NT-Pro-B Natriuret Pep Total Protein Albumin Arterial Blood Glucose Urine WBC (Auto) Urine Creatinine 12/12/19 12/13/19 12/13/19 23:33 05:32 05:32 WBC 13.1 H RBC 3.27 L Hgb 9.5 L Hct 29.3 L MCHC RDW 15.6 H MCV MCH Lymph % (Auto) [place] % (Auto) [place] # Eos # Lymph # (Auto) [place] # (Auto) Eos # (Auto) Seg Neutrophils % Seg Neuts % (Manual) 74.0 H Baso # (Auto) Lymphocytes % (Manual) 8.0 L Monocytes % (Manual) 9.0 H Eosinophils % (Manual) 5.0 H Basophils % (Manual) Seg Neutrophils # Seg Neutrophils # Man 9.7 H Lymphocytes # (Manual) 1.0 L Monocytes # (Manual) 1.2 H Eosinophils # (Manual) 0.7 H Nucleated RBC % Basophils # (Manual) PT INR APTT Heparin Anti-Xa Level 0.20 L ABG pH POC ABG pO2 ABG pO2 ABG HCO3 ABG O2 Saturation ABG Base Excess POC ABG pCO2 ABG Hemoglobin ABG Oxyhemoglobin ABG Glucose Oxyhemoglobin Sodium Potassium Chloride Carbon Dioxide BUN Creatinine Glucose POC Glucose 126 H Lactic Acid Calcium Phosphorus Magnesium AST ALT Lactate Dehydrogenase Total Bilirubin CK-MB (CK-2) C-Reactive Protein NT-Pro-B Natriuret Pep Total Protein Albumin Arterial Blood Glucose Urine WBC (Auto) Urine Creatinine 12/13/19 12/13/19 12/13/19 05:32 05:46 11:57 WBC RBC Hgb Hct MCHC RDW MCV MCH Lymph % (Auto) [place] % (Auto) [place] # Eos # Lymph # (Auto) [place] # (Auto) Eos # (Auto) Seg Neutrophils % Seg Neuts % (Manual) Baso # (Auto) Lymphocytes % (Manual) Monocytes % (Manual) Eosinophils % (Manual) Basophils % (Manual) Seg Neutrophils # Seg Neutrophils # Man Lymphocytes # (Manual) Monocytes # (Manual) Eosinophils # (Manual) Nucleated RBC % Basophils # (Manual) PT INR APTT Heparin Anti-Xa Level ABG pH POC ABG pO2 ABG pO2 ABG HCO3 ABG O2 Saturation ABG Base Excess POC ABG pCO2 ABG Hemoglobin ABG Oxyhemoglobin ABG Glucose Oxyhemoglobin Sodium Potassium Chloride Carbon Dioxide 31 H BUN Creatinine 0.6 L Glucose 114 H POC Glucose 118 H 133 H Lactic Acid Calcium Phosphorus Magnesium AST ALT Lactate Dehydrogenase Total Bilirubin CK-MB (CK-2) C-Reactive Protein NT-Pro-B Natriuret Pep Total Protein Albumin Arterial Blood Glucose Urine WBC (Auto) Urine Creatinine 12/13/19 12/13/19 12/14/19 17:44 23:46 05:32 WBC RBC Hgb Hct MCHC RDW MCV MCH Lymph % (Auto) [place] % (Auto) [place] # Eos # Lymph # (Auto) [place] # (Auto) Eos # (Auto) Seg Neutrophils % Seg Neuts % (Manual) Baso # (Auto) Lymphocytes % (Manual) Monocytes % (Manual) Eosinophils % (Manual) Basophils % (Manual) Seg Neutrophils # Seg Neutrophils # Man Lymphocytes # (Manual) Monocytes # (Manual) Eosinophils # (Manual) Nucleated RBC % Basophils # (Manual) PT INR APTT Heparin Anti-Xa Level ABG pH POC ABG pO2 ABG pO2 ABG HCO3 ABG O2 Saturation ABG Base Excess POC ABG pCO2 ABG Hemoglobin ABG Oxyhemoglobin ABG Glucose Oxyhemoglobin Sodium Potassium Chloride Carbon Dioxide BUN Creatinine Glucose POC Glucose 161 H 126 H 139 H Lactic Acid Calcium Phosphorus Magnesium AST ALT Lactate Dehydrogenase Total Bilirubin CK-MB (CK-2) C-Reactive Protein NT-Pro-B Natriuret Pep Total Protein Albumin Arterial Blood Glucose Urine WBC (Auto) Urine Creatinine 12/14/19 12/14/19 12/14/19 06:03 06:03 09:37 WBC RBC Hgb 9.6 L Hct 30.4 L MCHC RDW MCV MCH Lymph % (Auto) [place] % (Auto) [place] # Eos # Lymph # (Auto) [place] # (Auto) Eos # (Auto) Seg Neutrophils % Seg Neuts % (Manual) Baso # (Auto) Lymphocytes % (Manual) Monocytes % (Manual) Eosinophils % (Manual) Basophils % (Manual) Seg Neutrophils # Seg Neutrophils # Man Lymphocytes # (Manual) Monocytes # (Manual) Eosinophils # (Manual) Nucleated RBC % Basophils # (Manual) PT INR APTT Heparin Anti-Xa Level 0.24 L ABG pH POC ABG pO2 ABG pO2 ABG HCO3 ABG O2 Saturation ABG Base Excess POC ABG pCO2 ABG Hemoglobin ABG Oxyhemoglobin ABG Glucose Oxyhemoglobin Sodium Potassium Chloride Carbon Dioxide BUN Creatinine 0.6 L Glucose 162 H POC Glucose Lactic Acid Calcium Phosphorus Magnesium AST 71 H ALT 118 H Lactate Dehydrogenase Total Bilirubin CK-MB (CK-2) C-Reactive Protein NT-Pro-B Natriuret Pep Total Protein 6.2 L Albumin 2.3 L Arterial Blood Glucose Urine WBC (Auto) Urine Creatinine 12/14/19 12/14/19 12/15/19 12:06 18:18 00:19 WBC RBC Hgb Hct MCHC RDW MCV MCH Lymph % (Auto) [place] % (Auto) [place] # Eos # Lymph # (Auto) [place] # (Auto) Eos # (Auto) Seg Neutrophils % Seg Neuts % (Manual) Baso # (Auto) Lymphocytes % (Manual) Monocytes % (Manual) Eosinophils % (Manual) Basophils % (Manual) Seg Neutrophils # Seg Neutrophils # Man Lymphocytes # (Manual) Monocytes # (Manual) Eosinophils # (Manual) Nucleated RBC % Basophils # (Manual) PT INR APTT Heparin Anti-Xa Level ABG pH POC ABG pO2 ABG pO2 ABG HCO3 ABG O2 Saturation ABG Base Excess POC ABG pCO2 ABG Hemoglobin ABG Oxyhemoglobin ABG Glucose Oxyhemoglobin Sodium Potassium Chloride Carbon Dioxide BUN Creatinine Glucose POC Glucose 147 H 166 H 123 H Lactic Acid Calcium Phosphorus Magnesium AST ALT Lactate Dehydrogenase Total Bilirubin CK-MB (CK-2) C-Reactive Protein NT-Pro-B Natriuret Pep Total Protein Albumin Arterial Blood Glucose Urine WBC (Auto) Urine Creatinine 12/15/19 12/15/19 12/15/19 05:28 05:29 05:29 WBC 14.9 H RBC 3.19 L Hgb 9.1 L Hct 28.7 L MCHC RDW 16.0 H MCV MCH Lymph % (Auto) [place] % (Auto) [place] # Eos # Lymph # (Auto) [place] # (Auto) Eos # (Auto) Seg Neutrophils % Seg Neuts % (Manual) Baso # (Auto) Lymphocytes % (Manual) Monocytes % (Manual) Eosinophils % (Manual) Basophils % (Manual) Seg Neutrophils # Seg Neutrophils # Man Lymphocytes # (Manual) Monocytes # (Manual) Eosinophils # (Manual) Nucleated RBC % Basophils # (Manual) PT INR APTT Heparin Anti-Xa Level 0.19 L ABG pH POC ABG pO2 ABG pO2 ABG HCO3 ABG O2 Saturation ABG Base Excess POC ABG pCO2 ABG Hemoglobin ABG Oxyhemoglobin ABG Glucose Oxyhemoglobin Sodium Potassium Chloride Carbon Dioxide BUN Creatinine 0.6 L Glucose 110 H POC Glucose Lactic Acid Calcium Phosphorus Magnesium AST ALT Lactate Dehydrogenase Total Bilirubin CK-MB (CK-2) C-Reactive Protein NT-Pro-B Natriuret Pep Total Protein Albumin Arterial Blood Glucose Urine WBC (Auto) Urine Creatinine 12/15/19 12/15/19 12/15/19 05:53 11:50 17:26 WBC RBC Hgb Hct MCHC RDW MCV MCH Lymph % (Auto) [place] % (Auto) [place] # Eos # Lymph # (Auto) [place] # (Auto) Eos # (Auto) Seg Neutrophils % Seg Neuts % (Manual) Baso # (Auto) Lymphocytes % (Manual) Monocytes % (Manual) Eosinophils % (Manual) Basophils % (Manual) Seg Neutrophils # Seg Neutrophils # Man Lymphocytes # (Manual) Monocytes # (Manual) Eosinophils # (Manual) Nucleated RBC % Basophils # (Manual) PT INR APTT Heparin Anti-Xa Level ABG pH POC ABG pO2 ABG pO2 ABG HCO3 ABG O2 Saturation ABG Base Excess POC ABG pCO2 ABG Hemoglobin ABG Oxyhemoglobin ABG Glucose Oxyhemoglobin Sodium Potassium Chloride Carbon Dioxide BUN Creatinine Glucose POC Glucose 119 H 132 H 128 H Lactic Acid Calcium Phosphorus Magnesium AST ALT Lactate Dehydrogenase Total Bilirubin CK-MB (CK-2) C-Reactive Protein NT-Pro-B Natriuret Pep Total Protein Albumin Arterial Blood Glucose Urine WBC (Auto) Urine Creatinine 12/15/19 12/16/19 12/16/19 23:11 05:30 05:46 WBC RBC Hgb 8.8 L Hct 27.9 L MCHC RDW MCV MCH Lymph % (Auto) [place] % (Auto) [place] # Eos # Lymph # (Auto) [place] # (Auto) Eos # (Auto) Seg Neutrophils % Seg Neuts % (Manual) Baso # (Auto) Lymphocytes % (Manual) Monocytes % (Manual) Eosinophils % (Manual) Basophils % (Manual) Seg Neutrophils # Seg Neutrophils # Man Lymphocytes # (Manual) Monocytes # (Manual) Eosinophils # (Manual) Nucleated RBC % Basophils # (Manual) PT INR APTT Heparin Anti-Xa Level ABG pH POC ABG pO2 ABG pO2 ABG HCO3 ABG O2 Saturation ABG Base Excess POC ABG pCO2 ABG Hemoglobin ABG Oxyhemoglobin ABG Glucose Oxyhemoglobin Sodium Potassium Chloride Carbon Dioxide BUN Creatinine Glucose POC Glucose 150 H 134 H Lactic Acid Calcium Phosphorus Magnesium AST ALT Lactate Dehydrogenase Total Bilirubin CK-MB (CK-2) C-Reactive Protein NT-Pro-B Natriuret Pep Total Protein Albumin Arterial Blood Glucose Urine WBC (Auto) Urine Creatinine 12/16/19 12/16/19 12/16/19 05:46 05:46 11:44 WBC RBC Hgb Hct MCHC RDW MCV MCH Lymph % (Auto) [place] % (Auto) [place] # Eos # Lymph # (Auto) [place] # (Auto) Eos # (Auto) Seg Neutrophils % Seg Neuts % (Manual) Baso # (Auto) Lymphocytes % (Manual) Monocytes % (Manual) Eosinophils % (Manual) Basophils % (Manual) Seg Neutrophils # Seg Neutrophils # Man Lymphocytes # (Manual) Monocytes # (Manual) Eosinophils # (Manual) Nucleated RBC % Basophils # (Manual) PT INR APTT Heparin Anti-Xa Level 0.20 L ABG pH POC ABG pO2 ABG pO2 ABG HCO3 ABG O2 Saturation ABG Base Excess POC ABG pCO2 ABG Hemoglobin ABG Oxyhemoglobin ABG Glucose Oxyhemoglobin Sodium Potassium Chloride Carbon Dioxide 31 H BUN Creatinine 0.5 L Glucose 147 H POC Glucose 164 H Lactic Acid Calcium Phosphorus Magnesium AST ALT Lactate Dehydrogenase Total Bilirubin CK-MB (CK-2) C-Reactive Protein NT-Pro-B Natriuret Pep Total Protein Albumin Arterial Blood Glucose Urine WBC (Auto) Urine Creatinine 12/16/19 12/16/19 12/17/19 17:17 23:49 05:30 WBC 13.9 H RBC 3.27 L Hgb 9.4 L Hct 29.2 L MCHC RDW 16.0 H MCV MCH Lymph % (Auto) [place] % (Auto) 8.8 H [place] # Eos # Lymph # (Auto) [place] # (Auto) 1.2 H Eos # (Auto) 0.5 H Seg Neutrophils % 70.5 H Seg Neuts % (Manual) Baso # (Auto) 0.2 H Lymphocytes % (Manual) Monocytes % (Manual) Eosinophils % (Manual) Basophils % (Manual) Seg Neutrophils # 9.8 H Seg Neutrophils # Man Lymphocytes # (Manual) Monocytes # (Manual) Eosinophils # (Manual) Nucleated RBC % Basophils # (Manual) PT INR APTT Heparin Anti-Xa Level ABG pH POC ABG pO2 ABG pO2 ABG HCO3 ABG O2 Saturation ABG Base Excess POC ABG pCO2 ABG Hemoglobin ABG Oxyhemoglobin ABG Glucose Oxyhemoglobin Sodium Potassium Chloride Carbon Dioxide BUN Creatinine Glucose POC Glucose 162 H 144 H Lactic Acid Calcium Phosphorus Magnesium AST ALT Lactate Dehydrogenase Total Bilirubin CK-MB (CK-2) C-Reactive Protein NT-Pro-B Natriuret Pep Total Protein Albumin Arterial Blood Glucose Urine WBC (Auto) Urine Creatinine 12/17/19 12/17/19 12/17/19 05:30 06:06 11:50 WBC RBC Hgb Hct MCHC RDW MCV MCH Lymph % (Auto) [place] % (Auto) [place] # Eos # Lymph # (Auto) [place] # (Auto) Eos # (Auto) Seg Neutrophils % Seg Neuts % (Manual) Baso # (Auto) Lymphocytes % (Manual) Monocytes % (Manual) Eosinophils % (Manual) Basophils % (Manual) Seg Neutrophils # Seg Neutrophils # Man Lymphocytes # (Manual) Monocytes # (Manual) Eosinophils # (Manual) Nucleated RBC % Basophils # (Manual) PT INR APTT Heparin Anti-Xa Level ABG pH POC ABG pO2 ABG pO2 ABG HCO3 ABG O2 Saturation ABG Base Excess POC ABG pCO2 ABG Hemoglobin ABG Oxyhemoglobin ABG Glucose Oxyhemoglobin Sodium Potassium Chloride 97.4 L Carbon Dioxide 32 H BUN Creatinine 0.5 L Glucose 135 H POC Glucose 151 H 140 H Lactic Acid Calcium Phosphorus Magnesium AST ALT Lactate Dehydrogenase Total Bilirubin CK-MB (CK-2) C-Reactive Protein NT-Pro-B Natriuret Pep Total Protein Albumin Arterial Blood Glucose Urine WBC (Auto) Urine Creatinine 12/17/19 12/17/19 12/18/19 17:50 23:46 05:17 WBC RBC Hgb 8.8 L Hct 28.0 L MCHC RDW MCV MCH Lymph % (Auto) [place] % (Auto) [place] # Eos # Lymph # (Auto) [place] # (Auto) Eos # (Auto) Seg Neutrophils % Seg Neuts % (Manual) Baso # (Auto) Lymphocytes % (Manual) Monocytes % (Manual) Eosinophils % (Manual) Basophils % (Manual) Seg Neutrophils # Seg Neutrophils # Man Lymphocytes # (Manual) Monocytes # (Manual) Eosinophils # (Manual) Nucleated RBC % Basophils # (Manual) PT INR APTT Heparin Anti-Xa Level ABG pH POC ABG pO2 ABG pO2 ABG HCO3 ABG O2 Saturation ABG Base Excess POC ABG pCO2 ABG Hemoglobin ABG Oxyhemoglobin ABG Glucose Oxyhemoglobin Sodium Potassium Chloride Carbon Dioxide BUN Creatinine Glucose POC Glucose 158 H 150 H Lactic Acid Calcium Phosphorus Magnesium AST ALT Lactate Dehydrogenase Total Bilirubin CK-MB (CK-2) C-Reactive Protein NT-Pro-B Natriuret Pep Total Protein Albumin Arterial Blood Glucose Urine WBC (Auto) Urine Creatinine 12/18/19 12/18/19 12/18/19 05:17 05:49 11:12 WBC RBC Hgb Hct MCHC RDW MCV MCH Lymph % (Auto) [place] % (Auto) [place] # Eos # Lymph # (Auto) [place] # (Auto) Eos # (Auto) Seg Neutrophils % Seg Neuts % (Manual) Baso # (Auto) Lymphocytes % (Manual) Monocytes % (Manual) Eosinophils % (Manual) Basophils % (Manual) Seg Neutrophils # Seg Neutrophils # Man Lymphocytes # (Manual) Monocytes # (Manual) Eosinophils # (Manual) Nucleated RBC % Basophils # (Manual) PT INR APTT Heparin Anti-Xa Level 0.16 L ABG pH POC ABG pO2 ABG pO2 ABG HCO3 ABG O2 Saturation ABG Base Excess POC ABG pCO2 ABG Hemoglobin ABG Oxyhemoglobin ABG Glucose Oxyhemoglobin Sodium Potassium Chloride Carbon Dioxide BUN Creatinine Glucose POC Glucose 127 H 191 H Lactic Acid Calcium Phosphorus Magnesium AST ALT Lactate Dehydrogenase Total Bilirubin CK-MB (CK-2) C-Reactive Protein NT-Pro-B Natriuret Pep Total Protein Albumin Arterial Blood Glucose Urine WBC (Auto) Urine Creatinine 12/18/19 12/18/19 12/19/19 17:03 20:16 00:08 WBC RBC Hgb Hct MCHC RDW MCV MCH Lymph % (Auto) [place] % (Auto) [place] # Eos # Lymph # (Auto) [place] # (Auto) Eos # (Auto) Seg Neutrophils % Seg Neuts % (Manual) Baso # (Auto) Lymphocytes % (Manual) Monocytes % (Manual) Eosinophils % (Manual) Basophils % (Manual) Seg Neutrophils # Seg Neutrophils # Man Lymphocytes # (Manual) Monocytes # (Manual) Eosinophils # (Manual) Nucleated RBC % Basophils # (Manual) PT INR APTT Heparin Anti-Xa Level ABG pH POC ABG pO2 ABG pO2 ABG HCO3 ABG O2 Saturation ABG Base Excess POC ABG pCO2 ABG Hemoglobin ABG Oxyhemoglobin ABG Glucose Oxyhemoglobin Sodium Potassium Chloride Carbon Dioxide BUN Creatinine Glucose POC Glucose 133 H 128 H 129 H Lactic Acid Calcium Phosphorus Magnesium AST ALT Lactate Dehydrogenase Total Bilirubin CK-MB (CK-2) C-Reactive Protein NT-Pro-B Natriuret Pep Total Protein Albumin Arterial Blood Glucose Urine WBC (Auto) Urine Creatinine 12/19/19 12/19/19 12/19/19 04:45 04:45 05:35 WBC RBC Hgb Hct MCHC RDW MCV MCH Lymph % (Auto) [place] % (Auto) [place] # Eos # Lymph # (Auto) [place] # (Auto) Eos # (Auto) Seg Neutrophils % Seg Neuts % (Manual) Baso # (Auto) Lymphocytes % (Manual) Monocytes % (Manual) Eosinophils % (Manual) Basophils % (Manual) Seg Neutrophils # Seg Neutrophils # Man Lymphocytes # (Manual) Monocytes # (Manual) Eosinophils # (Manual) Nucleated RBC % Basophils # (Manual) PT INR APTT Heparin Anti-Xa Level 0.17 L ABG pH POC ABG pO2 ABG pO2 ABG HCO3 ABG O2 Saturation ABG Base Excess POC ABG pCO2 ABG Hemoglobin ABG Oxyhemoglobin ABG Glucose Oxyhemoglobin Sodium Potassium Chloride Carbon Dioxide BUN Creatinine Glucose POC Glucose 120 H Lactic Acid Calcium Phosphorus Magnesium AST ALT Lactate Dehydrogenase 228 H Total Bilirubin CK-MB (CK-2) C-Reactive Protein NT-Pro-B Natriuret Pep Total Protein Albumin Arterial Blood Glucose Urine WBC (Auto) Urine Creatinine 12/19/19 12/19/19 12/19/19 09:20 11:32 11:32 WBC 14.6 H RBC 3.08 L Hgb 9.0 L Hct 26.8 L MCHC RDW 15.9 H MCV MCH Lymph % (Auto) [place] % (Auto) [place] # Eos # Lymph # (Auto) [place] # (Auto) Eos # (Auto) Seg Neutrophils % Seg Neuts % (Manual) 82.0 H Baso # (Auto) Lymphocytes % (Manual) 10.0 L Monocytes % (Manual) Eosinophils % (Manual) Basophils % (Manual) Seg Neutrophils # Seg Neutrophils # Man 12.0 H Lymphocytes # (Manual) Monocytes # (Manual) 0.9 H Eosinophils # (Manual) Nucleated RBC % 1.0 H Basophils # (Manual) PT INR APTT Heparin Anti-Xa Level ABG pH 7.451 H POC ABG pO2 ABG pO2 62.6 L ABG HCO3 33.2 H ABG O2 Saturation 93.8 L ABG Base Excess 8.3 H POC ABG pCO2 ABG Hemoglobin 8.3 L ABG Oxyhemoglobin ABG Glucose Oxyhemoglobin 91.9 L Sodium Potassium Chloride 95.0 L Carbon Dioxide 33 H BUN 22 H Creatinine 0.6 L Glucose 150 H POC Glucose Lactic Acid Calcium Phosphorus Magnesium AST ALT Lactate Dehydrogenase Total Bilirubin CK-MB (CK-2) C-Reactive Protein NT-Pro-B Natriuret Pep Total Protein 6.2 L Albumin 2.4 L Arterial Blood Glucose Urine WBC (Auto) Urine Creatinine 12/19/19 12/19/19 12/20/19 11:56 18:17 00:09 WBC RBC Hgb Hct MCHC RDW MCV MCH Lymph % (Auto) [place] % (Auto) [place] # Eos # Lymph # (Auto) [place] # (Auto) Eos # (Auto) Seg Neutrophils % Seg Neuts % (Manual) Baso # (Auto) Lymphocytes % (Manual) Monocytes % (Manual) Eosinophils % (Manual) Basophils % (Manual) Seg Neutrophils # Seg Neutrophils # Man Lymphocytes # (Manual) Monocytes # (Manual) Eosinophils # (Manual) Nucleated RBC % Basophils # (Manual) PT INR APTT Heparin Anti-Xa Level ABG pH POC ABG pO2 ABG pO2 ABG HCO3 ABG O2 Saturation ABG Base Excess POC ABG pCO2 ABG Hemoglobin ABG Oxyhemoglobin ABG Glucose Oxyhemoglobin Sodium Potassium Chloride Carbon Dioxide BUN Creatinine Glucose POC Glucose 156 H 156 H 155 H Lactic Acid Calcium Phosphorus Magnesium AST ALT Lactate Dehydrogenase Total Bilirubin CK-MB (CK-2) C-Reactive Protein NT-Pro-B Natriuret Pep Total Protein Albumin Arterial Blood Glucose Urine WBC (Auto) Urine Creatinine 12/20/19 12/20/19 12/20/19 05:26 06:02 18:17 WBC RBC Hgb Hct MCHC RDW MCV MCH Lymph % (Auto) [place] % (Auto) [place] # Eos # Lymph # (Auto) [place] # (Auto) Eos # (Auto) Seg Neutrophils % Seg Neuts % (Manual) Baso # (Auto) Lymphocytes % (Manual) Monocytes % (Manual) Eosinophils % (Manual) Basophils % (Manual) Seg Neutrophils # Seg Neutrophils # Man Lymphocytes # (Manual) Monocytes # (Manual) Eosinophils # (Manual) Nucleated RBC % Basophils # (Manual) PT INR APTT Heparin Anti-Xa Level 0.19 L ABG pH POC ABG pO2 ABG pO2 ABG HCO3 ABG O2 Saturation ABG Base Excess POC ABG pCO2 ABG Hemoglobin ABG Oxyhemoglobin ABG Glucose Oxyhemoglobin Sodium Potassium Chloride Carbon Dioxide BUN Creatinine Glucose POC Glucose 137 H 128 H Lactic Acid Calcium Phosphorus Magnesium AST ALT Lactate Dehydrogenase Total Bilirubin CK-MB (CK-2) C-Reactive Protein NT-Pro-B Natriuret Pep Total Protein Albumin Arterial Blood Glucose Urine WBC (Auto) Urine Creatinine 12/20/19 12/21/19 12/21/19 23:34 05:31 05:31 WBC 12.7 H RBC 3.09 L Hgb 8.9 L Hct 27.4 L MCHC RDW 15.8 H MCV MCH Lymph % (Auto) 12.1 L [place] % (Auto) 7.8 H [place] # Eos # Lymph # (Auto) [place] # (Auto) 1.0 H Eos # (Auto) Seg Neutrophils % 77.1 H Seg Neuts % (Manual) Baso # (Auto) Lymphocytes % (Manual) Monocytes % (Manual) Eosinophils % (Manual) Basophils % (Manual) Seg Neutrophils # 9.8 H Seg Neutrophils # Man Lymphocytes # (Manual) Monocytes # (Manual) Eosinophils # (Manual) Nucleated RBC % Basophils # (Manual) PT INR APTT Heparin Anti-Xa Level ABG pH POC ABG pO2 ABG pO2 ABG HCO3 ABG O2 Saturation ABG Base Excess POC ABG pCO2 ABG Hemoglobin ABG Oxyhemoglobin ABG Glucose Oxyhemoglobin Sodium Potassium Chloride 96.9 L Carbon Dioxide 37 H BUN 27 H Creatinine 0.7 L Glucose 140 H POC Glucose 145 H Lactic Acid Calcium Phosphorus Magnesium AST ALT Lactate Dehydrogenase Total Bilirubin CK-MB (CK-2) C-Reactive Protein NT-Pro-B Natriuret Pep Total Protein Albumin Arterial Blood Glucose Urine WBC (Auto) Urine Creatinine 12/21/19 12/21/19 12/21/19 05:38 10:13 11:51 WBC RBC Hgb Hct MCHC RDW MCV MCH Lymph % (Auto) [place] % (Auto) [place] # Eos # Lymph # (Auto) [place] # (Auto) Eos # (Auto) Seg Neutrophils % Seg Neuts % (Manual) Baso # (Auto) Lymphocytes % (Manual) Monocytes % (Manual) Eosinophils % (Manual) Basophils % (Manual) Seg Neutrophils # Seg Neutrophils # Man Lymphocytes # (Manual) Monocytes # (Manual) Eosinophils # (Manual) Nucleated RBC % Basophils # (Manual) PT INR APTT 23.9 L Heparin Anti-Xa Level < 0.10 L ABG pH POC ABG pO2 ABG pO2 ABG HCO3 ABG O2 Saturation ABG Base Excess POC ABG pCO2 ABG Hemoglobin ABG Oxyhemoglobin ABG Glucose Oxyhemoglobin Sodium Potassium Chloride Carbon Dioxide BUN Creatinine Glucose POC Glucose 151 H 145 H Lactic Acid Calcium Phosphorus Magnesium AST ALT Lactate Dehydrogenase Total Bilirubin CK-MB (CK-2) C-Reactive Protein NT-Pro-B Natriuret Pep Total Protein Albumin Arterial Blood Glucose Urine WBC (Auto) Urine Creatinine 12/21/19 12/22/19 12/22/19 17:16 00:01 01:33 WBC RBC Hgb Hct MCHC RDW MCV MCH Lymph % (Auto) [place] % (Auto) [place] # Eos # Lymph # (Auto) [place] # (Auto) Eos # (Auto) Seg Neutrophils % Seg Neuts % (Manual) Baso # (Auto) Lymphocytes % (Manual) Monocytes % (Manual) Eosinophils % (Manual) Basophils % (Manual) Seg Neutrophils # Seg Neutrophils # Man Lymphocytes # (Manual) Monocytes # (Manual) Eosinophils # (Manual) Nucleated RBC % Basophils # (Manual) PT INR APTT Heparin Anti-Xa Level 0.10 L ABG pH POC ABG pO2 ABG pO2 ABG HCO3 ABG O2 Saturation ABG Base Excess POC ABG pCO2 ABG Hemoglobin ABG Oxyhemoglobin ABG Glucose Oxyhemoglobin Sodium Potassium Chloride Carbon Dioxide BUN Creatinine Glucose POC Glucose 167 H 179 H Lactic Acid Calcium Phosphorus Magnesium AST ALT Lactate Dehydrogenase Total Bilirubin CK-MB (CK-2) C-Reactive Protein NT-Pro-B Natriuret Pep Total Protein Albumin Arterial Blood Glucose Urine WBC (Auto) Urine Creatinine 12/22/19 12/22/19 12/22/19 03:22 05:10 05:10 WBC 13.8 H RBC 3.20 L Hgb 8.9 L Hct 28.1 L MCHC RDW 15.9 H MCV MCH Lymph % (Auto) [place] % (Auto) [place] # Eos # Lymph # (Auto) [place] # (Auto) Eos # (Auto) Seg Neutrophils % Seg Neuts % (Manual) Baso # (Auto) Lymphocytes % (Manual) Monocytes % (Manual) Eosinophils % (Manual) Basophils % (Manual) Seg Neutrophils # Seg Neutrophils # Man Lymphocytes # (Manual) Monocytes # (Manual) Eosinophils # (Manual) Nucleated RBC % Basophils # (Manual) PT INR APTT Heparin Anti-Xa Level ABG pH POC ABG pO2 52.3 L ABG pO2 ABG HCO3 ABG O2 Saturation ABG Base Excess POC ABG pCO2 52.9 H ABG Hemoglobin 10.7 L ABG Oxyhemoglobin 84 L ABG Glucose Oxyhemoglobin Sodium Potassium Chloride 96.6 L Carbon Dioxide BUN 25 H Creatinine 0.7 L Glucose 129 H POC Glucose Lactic Acid Calcium Phosphorus Magnesium AST ALT Lactate Dehydrogenase Total Bilirubin CK-MB (CK-2) C-Reactive Protein NT-Pro-B Natriuret Pep Total Protein Albumin Arterial Blood Glucose Urine WBC (Auto) Urine Creatinine 12/22/19 12/22/19 12/22/19 05:18 12:32 12:43 WBC RBC Hgb Hct MCHC RDW MCV MCH Lymph % (Auto) [place] % (Auto) [place] # Eos # Lymph # (Auto) [place] # (Auto) Eos # (Auto) Seg Neutrophils % Seg Neuts % (Manual) Baso # (Auto) Lymphocytes % (Manual) Monocytes % (Manual) Eosinophils % (Manual) Basophils % (Manual) Seg Neutrophils # Seg Neutrophils # Man Lymphocytes # (Manual) Monocytes # (Manual) Eosinophils # (Manual) Nucleated RBC % Basophils # (Manual) PT INR APTT Heparin Anti-Xa Level 0.18 L ABG pH POC ABG pO2 ABG pO2 ABG HCO3 ABG O2 Saturation ABG Base Excess POC ABG pCO2 ABG Hemoglobin ABG Oxyhemoglobin ABG Glucose Oxyhemoglobin Sodium Potassium Chloride Carbon Dioxide BUN Creatinine Glucose POC Glucose 131 H 208 H Lactic Acid Calcium Phosphorus Magnesium AST ALT Lactate Dehydrogenase Total Bilirubin CK-MB (CK-2) C-Reactive Protein NT-Pro-B Natriuret Pep Total Protein Albumin Arterial Blood Glucose Urine WBC (Auto) Urine Creatinine 12/22/19 12/22/19 12/23/19 17:44 23:20 03:51 WBC 15.2 H RBC 3.43 L Hgb 9.6 L Hct 30.3 L MCHC RDW 15.9 H MCV MCH Lymph % (Auto) [place] % (Auto) [place] # Eos # Lymph # (Auto) [place] # (Auto) Eos # (Auto) Seg Neutrophils % Seg Neuts % (Manual) Baso # (Auto) Lymphocytes % (Manual) Monocytes % (Manual) Eosinophils % (Manual) Basophils % (Manual) Seg Neutrophils # Seg Neutrophils # Man Lymphocytes # (Manual) Monocytes # (Manual) Eosinophils # (Manual) Nucleated RBC % Basophils # (Manual) PT INR APTT Heparin Anti-Xa Level ABG pH POC ABG pO2 ABG pO2 ABG HCO3 ABG O2 Saturation ABG Base Excess POC ABG pCO2 ABG Hemoglobin ABG Oxyhemoglobin ABG Glucose Oxyhemoglobin Sodium Potassium Chloride Carbon Dioxide BUN Creatinine Glucose POC Glucose 209 H 119 H Lactic Acid Calcium Phosphorus Magnesium AST ALT Lactate Dehydrogenase Total Bilirubin CK-MB (CK-2) C-Reactive Protein NT-Pro-B Natriuret Pep Total Protein Albumin Arterial Blood Glucose Urine WBC (Auto) Urine Creatinine 12/23/19 12/23/19 12/23/19 03:51 05:31 12:09 WBC RBC Hgb Hct MCHC RDW MCV MCH Lymph % (Auto) [place] % (Auto) [place] # Eos # Lymph # (Auto) [place] # (Auto) Eos # (Auto) Seg Neutrophils % Seg Neuts % (Manual) Baso # (Auto) Lymphocytes % (Manual) Monocytes % (Manual) Eosinophils % (Manual) Basophils % (Manual) Seg Neutrophils # Seg Neutrophils # Man Lymphocytes # (Manual) Monocytes # (Manual) Eosinophils # (Manual) Nucleated RBC % Basophils # (Manual) PT INR APTT Heparin Anti-Xa Level ABG pH POC ABG pO2 ABG pO2 ABG HCO3 ABG O2 Saturation ABG Base Excess POC ABG pCO2 ABG Hemoglobin ABG Oxyhemoglobin ABG Glucose Oxyhemoglobin Sodium Potassium Chloride 97.2 L Carbon Dioxide 31 H BUN 23 H Creatinine 0.6 L Glucose 153 H POC Glucose 149 H 144 H Lactic Acid Calcium Phosphorus Magnesium AST ALT Lactate Dehydrogenase Total Bilirubin CK-MB (CK-2) C-Reactive Protein NT-Pro-B Natriuret Pep Total Protein Albumin Arterial Blood Glucose Urine WBC (Auto) Urine Creatinine 12/23/19 12/23/19 12/23/19 15:30 17:49 23:31 WBC RBC Hgb Hct MCHC RDW MCV MCH Lymph % (Auto) [place] % (Auto) [place] # Eos # Lymph # (Auto) [place] # (Auto) Eos # (Auto) Seg Neutrophils % Seg Neuts % (Manual) Baso # (Auto) Lymphocytes % (Manual) Monocytes % (Manual) Eosinophils % (Manual) Basophils % (Manual) Seg Neutrophils # Seg Neutrophils # Man Lymphocytes # (Manual) Monocytes # (Manual) Eosinophils # (Manual) Nucleated RBC % Basophils # (Manual) PT INR APTT Heparin Anti-Xa Level 0.21 L ABG pH POC ABG pO2 ABG pO2 ABG HCO3 ABG O2 Saturation ABG Base Excess POC ABG pCO2 ABG Hemoglobin ABG Oxyhemoglobin ABG Glucose Oxyhemoglobin Sodium Potassium Chloride Carbon Dioxide BUN Creatinine Glucose POC Glucose 192 H 151 H Lactic Acid Calcium Phosphorus Magnesium AST ALT Lactate Dehydrogenase Total Bilirubin CK-MB (CK-2) C-Reactive Protein NT-Pro-B Natriuret Pep Total Protein Albumin Arterial Blood Glucose Urine WBC (Auto) Urine Creatinine 12/24/19 12/24/19 12/24/19 05:34 12:13 16:50 WBC RBC Hgb Hct MCHC RDW MCV MCH Lymph % (Auto) [place] % (Auto) [place] # Eos # Lymph # (Auto) [place] # (Auto) Eos # (Auto) Seg Neutrophils % Seg Neuts % (Manual) Baso # (Auto) Lymphocytes % (Manual) Monocytes % (Manual) Eosinophils % (Manual) Basophils % (Manual) Seg Neutrophils # Seg Neutrophils # Man Lymphocytes # (Manual) Monocytes # (Manual) Eosinophils # (Manual) Nucleated RBC % Basophils # (Manual) PT INR APTT Heparin Anti-Xa Level 0.16 L ABG pH POC ABG pO2 ABG pO2 ABG HCO3 ABG O2 Saturation ABG Base Excess POC ABG pCO2 ABG Hemoglobin ABG Oxyhemoglobin ABG Glucose Oxyhemoglobin Sodium Potassium Chloride Carbon Dioxide BUN Creatinine Glucose POC Glucose 145 H 124 H Lactic Acid Calcium Phosphorus Magnesium AST ALT Lactate Dehydrogenase Total Bilirubin CK-MB (CK-2) C-Reactive Protein NT-Pro-B Natriuret Pep Total Protein Albumin Arterial Blood Glucose Urine WBC (Auto) Urine Creatinine 12/24/19 12/25/19 12/25/19 17:53 00:14 04:18 WBC 12.9 H RBC 3.30 L Hgb 9.1 L Hct 28.8 L MCHC RDW 16.4 H MCV MCH Lymph % (Auto) [place] % (Auto) 7.8 H [place] # Eos # Lymph # (Auto) [place] # (Auto) 1.0 H Eos # (Auto) Seg Neutrophils % 75.5 H Seg Neuts % (Manual) Baso # (Auto) Lymphocytes % (Manual) Monocytes % (Manual) Eosinophils % (Manual) Basophils % (Manual) Seg Neutrophils # 9.7 H Seg Neutrophils # Man Lymphocytes # (Manual) Monocytes # (Manual) Eosinophils # (Manual) Nucleated RBC % Basophils # (Manual) PT INR APTT Heparin Anti-Xa Level ABG pH POC ABG pO2 ABG pO2 ABG HCO3 ABG O2 Saturation ABG Base Excess POC ABG pCO2 ABG Hemoglobin ABG Oxyhemoglobin ABG Glucose Oxyhemoglobin Sodium Potassium Chloride Carbon Dioxide BUN Creatinine Glucose POC Glucose 164 H 148 H Lactic Acid Calcium Phosphorus Magnesium AST ALT Lactate Dehydrogenase Total Bilirubin CK-MB (CK-2) C-Reactive Protein NT-Pro-B Natriuret Pep Total Protein Albumin Arterial Blood Glucose Urine WBC (Auto) Urine Creatinine 12/25/19 12/25/19 12/25/19 04:18 05:38 11:44 WBC RBC Hgb Hct MCHC RDW MCV MCH Lymph % (Auto) [place] % (Auto) [place] # Eos # Lymph # (Auto) [place] # (Auto) Eos # (Auto) Seg Neutrophils % Seg Neuts % (Manual) Baso # (Auto) Lymphocytes % (Manual) Monocytes % (Manual) Eosinophils % (Manual) Basophils % (Manual) Seg Neutrophils # Seg Neutrophils # Man Lymphocytes # (Manual) Monocytes # (Manual) Eosinophils # (Manual) Nucleated RBC % Basophils # (Manual) PT INR APTT Heparin Anti-Xa Level ABG pH POC ABG pO2 ABG pO2 ABG HCO3 ABG O2 Saturation ABG Base Excess POC ABG pCO2 ABG Hemoglobin ABG Oxyhemoglobin ABG Glucose Oxyhemoglobin Sodium Potassium Chloride Carbon Dioxide 33 H BUN 27 H Creatinine 0.6 L Glucose 132 H POC Glucose 152 H 166 H Lactic Acid Calcium Phosphorus Magnesium AST ALT Lactate Dehydrogenase Total Bilirubin CK-MB (CK-2) C-Reactive Protein NT-Pro-B Natriuret Pep Total Protein Albumin Arterial Blood Glucose Urine WBC (Auto) Urine Creatinine 12/25/19 12/26/19 12/26/19 18:29 00:17 00:18 WBC RBC Hgb Hct MCHC RDW MCV MCH Lymph % (Auto) [place] % (Auto) [place] # Eos # Lymph # (Auto) [place] # (Auto) Eos # (Auto) Seg Neutrophils % Seg Neuts % (Manual) Baso # (Auto) Lymphocytes % (Manual) Monocytes % (Manual) Eosinophils % (Manual) Basophils % (Manual) Seg Neutrophils # Seg Neutrophils # Man Lymphocytes # (Manual) Monocytes # (Manual) Eosinophils # (Manual) Nucleated RBC % Basophils # (Manual) PT INR APTT Heparin Anti-Xa Level ABG pH POC ABG pO2 ABG pO2 ABG HCO3 ABG O2 Saturation ABG Base Excess POC ABG pCO2 ABG Hemoglobin ABG Oxyhemoglobin ABG Glucose Oxyhemoglobin Sodium Potassium Chloride 97.8 L Carbon Dioxide BUN 25 H Creatinine 0.6 L Glucose 140 H POC Glucose 194 H 151 H Lactic Acid Calcium Phosphorus Magnesium AST ALT Lactate Dehydrogenase Total Bilirubin CK-MB (CK-2) C-Reactive Protein NT-Pro-B Natriuret Pep Total Protein Albumin Arterial Blood Glucose Urine WBC (Auto) Urine Creatinine 12/26/19 12/26/19 12/26/19 05:36 11:41 17:50 WBC RBC Hgb Hct MCHC RDW MCV MCH Lymph % (Auto) [place] % (Auto) [place] # Eos # Lymph # (Auto) [place] # (Auto) Eos # (Auto) Seg Neutrophils % Seg Neuts % (Manual) Baso # (Auto) Lymphocytes % (Manual) Monocytes % (Manual) Eosinophils % (Manual) Basophils % (Manual) Seg Neutrophils # Seg Neutrophils # Man Lymphocytes # (Manual) Monocytes # (Manual) Eosinophils # (Manual) Nucleated RBC % Basophils # (Manual) PT INR APTT Heparin Anti-Xa Level ABG pH POC ABG pO2 ABG pO2 ABG HCO3 ABG O2 Saturation ABG Base Excess POC ABG pCO2 ABG Hemoglobin ABG Oxyhemoglobin ABG Glucose Oxyhemoglobin Sodium Potassium Chloride Carbon Dioxide BUN Creatinine Glucose POC Glucose 156 H 148 H 139 H Lactic Acid Calcium Phosphorus Magnesium AST ALT Lactate Dehydrogenase Total Bilirubin CK-MB (CK-2) C-Reactive Protein NT-Pro-B Natriuret Pep Total Protein Albumin Arterial Blood Glucose Urine WBC (Auto) Urine Creatinine 12/26/19 12/27/19 12/27/19 23:19 05:34 12:02 WBC RBC Hgb Hct MCHC RDW MCV MCH Lymph % (Auto) [place] % (Auto) [place] # Eos # Lymph # (Auto) [place] # (Auto) Eos # (Auto) Seg Neutrophils % Seg Neuts % (Manual) Baso # (Auto) Lymphocytes % (Manual) Monocytes % (Manual) Eosinophils % (Manual) Basophils % (Manual) Seg Neutrophils # Seg Neutrophils # Man Lymphocytes # (Manual) Monocytes # (Manual) Eosinophils # (Manual) Nucleated RBC % Basophils # (Manual) PT INR APTT Heparin Anti-Xa Level ABG pH POC ABG pO2 ABG pO2 ABG HCO3 ABG O2 Saturation ABG Base Excess POC ABG pCO2 ABG Hemoglobin ABG Oxyhemoglobin ABG Glucose Oxyhemoglobin Sodium Potassium Chloride Carbon Dioxide BUN Creatinine Glucose POC Glucose 161 H 145 H 157 H Lactic Acid Calcium Phosphorus Magnesium AST ALT Lactate Dehydrogenase Total Bilirubin CK-MB (CK-2) C-Reactive Protein NT-Pro-B Natriuret Pep Total Protein Albumin Arterial Blood Glucose Urine WBC (Auto) Urine Creatinine 12/27/19 12/27/19 12/27/19 17:35 20:11 23:00 WBC RBC Hgb Hct MCHC RDW MCV MCH Lymph % (Auto) [place] % (Auto) [place] # Eos # Lymph # (Auto) [place] # (Auto) Eos # (Auto) Seg Neutrophils % Seg Neuts % (Manual) Baso # (Auto) Lymphocytes % (Manual) Monocytes % (Manual) Eosinophils % (Manual) Basophils % (Manual) Seg Neutrophils # Seg Neutrophils # Man Lymphocytes # (Manual) Monocytes # (Manual) Eosinophils # (Manual) Nucleated RBC % Basophils # (Manual) PT INR APTT Heparin Anti-Xa Level 0.19 L ABG pH POC ABG pO2 ABG pO2 ABG HCO3 ABG O2 Saturation ABG Base Excess POC ABG pCO2 ABG Hemoglobin ABG Oxyhemoglobin ABG Glucose Oxyhemoglobin Sodium Potassium Chloride Carbon Dioxide BUN Creatinine Glucose POC Glucose 158 H 155 H Lactic Acid Calcium Phosphorus Magnesium AST ALT Lactate Dehydrogenase Total Bilirubin CK-MB (CK-2) C-Reactive Protein NT-Pro-B Natriuret Pep Total Protein Albumin Arterial Blood Glucose Urine WBC (Auto) Urine Creatinine 12/27/19 12/28/19 12/28/19 23:45 02:41 02:41 WBC 13.0 H RBC 3.48 L Hgb 9.5 L Hct 30.6 L MCHC 31 L RDW 16.6 H MCV MCH 27 L Lymph % (Auto) 13.0 L [place] % (Auto) 8.0 H [place] # Eos # Lymph # (Auto) [place] # (Auto) 1.0 H Eos # (Auto) Seg Neutrophils % 76.3 H Seg Neuts % (Manual) Baso # (Auto) Lymphocytes % (Manual) Monocytes % (Manual) Eosinophils % (Manual) Basophils % (Manual) Seg Neutrophils # 9.9 H Seg Neutrophils # Man Lymphocytes # (Manual) Monocytes # (Manual) Eosinophils # (Manual) Nucleated RBC % Basophils # (Manual) PT INR APTT Heparin Anti-Xa Level ABG pH POC ABG pO2 ABG pO2 ABG HCO3 ABG O2 Saturation ABG Base Excess POC ABG pCO2 ABG Hemoglobin ABG Oxyhemoglobin ABG Glucose Oxyhemoglobin Sodium Potassium Chloride Carbon Dioxide BUN 22 H Creatinine 0.6 L Glucose 101 H POC Glucose 130 H Lactic Acid Calcium Phosphorus Magnesium AST ALT Lactate Dehydrogenase Total Bilirubin CK-MB (CK-2) C-Reactive Protein NT-Pro-B Natriuret Pep Total Protein Albumin Arterial Blood Glucose Urine WBC (Auto) Urine Creatinine 12/28/19 12/28/19 12/28/19 06:00 12:34 18:13 WBC RBC Hgb Hct MCHC RDW MCV MCH Lymph % (Auto) [place] % (Auto) [place] # Eos # Lymph # (Auto) [place] # (Auto) Eos # (Auto) Seg Neutrophils % Seg Neuts % (Manual) Baso # (Auto) Lymphocytes % (Manual) Monocytes % (Manual) Eosinophils % (Manual) Basophils % (Manual) Seg Neutrophils # Seg Neutrophils # Man Lymphocytes # (Manual) Monocytes # (Manual) Eosinophils # (Manual) Nucleated RBC % Basophils # (Manual) PT INR APTT Heparin Anti-Xa Level ABG pH POC ABG pO2 ABG pO2 ABG HCO3 ABG O2 Saturation ABG Base Excess POC ABG pCO2 ABG Hemoglobin ABG Oxyhemoglobin ABG Glucose Oxyhemoglobin Sodium Potassium Chloride Carbon Dioxide BUN Creatinine Glucose POC Glucose 150 H 161 H 128 H Lactic Acid Calcium Phosphorus Magnesium AST ALT Lactate Dehydrogenase Total Bilirubin CK-MB (CK-2) C-Reactive Protein NT-Pro-B Natriuret Pep Total Protein Albumin Arterial Blood Glucose Urine WBC (Auto) Urine Creatinine 12/28/19 12/29/19 12/29/19 23:36 05:21 11:40 WBC RBC Hgb Hct MCHC RDW MCV MCH Lymph % (Auto) [place] % (Auto) [place] # Eos # Lymph # (Auto) [place] # (Auto) Eos # (Auto) Seg Neutrophils % Seg Neuts % (Manual) Baso # (Auto) Lymphocytes % (Manual) Monocytes % (Manual) Eosinophils % (Manual) Basophils % (Manual) Seg Neutrophils # Seg Neutrophils # Man Lymphocytes # (Manual) Monocytes # (Manual) Eosinophils # (Manual) Nucleated RBC % Basophils # (Manual) PT INR APTT Heparin Anti-Xa Level ABG pH POC ABG pO2 ABG pO2 ABG HCO3 ABG O2 Saturation ABG Base Excess POC ABG pCO2 ABG Hemoglobin ABG Oxyhemoglobin ABG Glucose Oxyhemoglobin Sodium Potassium Chloride Carbon Dioxide BUN Creatinine Glucose POC Glucose 137 H 136 H 166 H Lactic Acid Calcium Phosphorus Magnesium AST ALT Lactate Dehydrogenase Total Bilirubin CK-MB (CK-2) C-Reactive Protein NT-Pro-B Natriuret Pep Total Protein Albumin Arterial Blood Glucose Urine WBC (Auto) Urine Creatinine 12/29/19 12/29/19 12/29/19 17:23 19:21 23:38 WBC RBC Hgb Hct MCHC RDW MCV MCH Lymph % (Auto) [place] % (Auto) [place] # Eos # Lymph # (Auto) [place] # (Auto) Eos # (Auto) Seg Neutrophils % Seg Neuts % (Manual) Baso # (Auto) Lymphocytes % (Manual) Monocytes % (Manual) Eosinophils % (Manual) Basophils % (Manual) Seg Neutrophils # Seg Neutrophils # Man Lymphocytes # (Manual) Monocytes # (Manual) Eosinophils # (Manual) Nucleated RBC % Basophils # (Manual) PT INR APTT Heparin Anti-Xa Level 0.20 L ABG pH POC ABG pO2 ABG pO2 ABG HCO3 ABG O2 Saturation ABG Base Excess POC ABG pCO2 ABG Hemoglobin ABG Oxyhemoglobin ABG Glucose Oxyhemoglobin Sodium Potassium Chloride Carbon Dioxide BUN Creatinine Glucose POC Glucose 144 H 141 H Lactic Acid Calcium Phosphorus Magnesium AST ALT Lactate Dehydrogenase Total Bilirubin CK-MB (CK-2) C-Reactive Protein NT-Pro-B Natriuret Pep Total Protein Albumin Arterial Blood Glucose Urine WBC (Auto) Urine Creatinine 12/30/19 12/30/19 12/30/19 03:58 03:58 04:59 WBC RBC 3.54 L Hgb 9.8 L Hct 30.7 L MCHC RDW 16.8 H MCV MCH Lymph % (Auto) [place] % (Auto) [place] # Eos # Lymph # (Auto) [place] # (Auto) Eos # (Auto) Seg Neutrophils % Seg Neuts % (Manual) Baso # (Auto) Lymphocytes % (Manual) Monocytes % (Manual) Eosinophils % (Manual) Basophils % (Manual) Seg Neutrophils # Seg Neutrophils # Man Lymphocytes # (Manual) Monocytes # (Manual) Eosinophils # (Manual) Nucleated RBC % Basophils # (Manual) PT INR APTT Heparin Anti-Xa Level ABG pH POC ABG pO2 ABG pO2 ABG HCO3 29.8 H ABG O2 Saturation ABG Base Excess 4.8 H POC ABG pCO2 ABG Hemoglobin 11.2 L ABG Oxyhemoglobin ABG Glucose Oxyhemoglobin 93.8 L Sodium Potassium Chloride 97.8 L Carbon Dioxide BUN 26 H Creatinine Glucose 168 H POC Glucose Lactic Acid Calcium Phosphorus Magnesium AST ALT Lactate Dehydrogenase Total Bilirubin CK-MB (CK-2) C-Reactive Protein NT-Pro-B Natriuret Pep Total Protein Albumin Arterial Blood Glucose Urine WBC (Auto) Urine Creatinine 12/30/19 12/30/19 12/30/19 05:45 11:34 17:28 WBC RBC Hgb Hct MCHC RDW MCV MCH Lymph % (Auto) [place] % (Auto) [place] # Eos # Lymph # (Auto) [place] # (Auto) Eos # (Auto) Seg Neutrophils % Seg Neuts % (Manual) Baso # (Auto) Lymphocytes % (Manual) Monocytes % (Manual) Eosinophils % (Manual) Basophils % (Manual) Seg Neutrophils # Seg Neutrophils # Man Lymphocytes # (Manual) Monocytes # (Manual) Eosinophils # (Manual) Nucleated RBC % Basophils # (Manual) PT INR APTT Heparin Anti-Xa Level ABG pH POC ABG pO2 ABG pO2 ABG HCO3 ABG O2 Saturation ABG Base Excess POC ABG pCO2 ABG Hemoglobin ABG Oxyhemoglobin ABG Glucose Oxyhemoglobin Sodium Potassium Chloride Carbon Dioxide BUN Creatinine Glucose POC Glucose 163 H 180 H 150 H Lactic Acid Calcium Phosphorus Magnesium AST ALT Lactate Dehydrogenase Total Bilirubin CK-MB (CK-2) C-Reactive Protein NT-Pro-B Natriuret Pep Total Protein Albumin Arterial Blood Glucose Urine WBC (Auto) Urine Creatinine 12/30/19 12/31/19 12/31/19 23:43 04:55 05:07 WBC RBC Hgb Hct MCHC RDW MCV MCH Lymph % (Auto) [place] % (Auto) [place] # Eos # Lymph # (Auto) [place] # (Auto) Eos # (Auto) Seg Neutrophils % Seg Neuts % (Manual) Baso # (Auto) Lymphocytes % (Manual) Monocytes % (Manual) Eosinophils % (Manual) Basophils % (Manual) Seg Neutrophils # Seg Neutrophils # Man Lymphocytes # (Manual) Monocytes # (Manual) Eosinophils # (Manual) Nucleated RBC % Basophils # (Manual) PT INR APTT Heparin Anti-Xa Level ABG pH POC ABG pO2 ABG pO2 ABG HCO3 ABG O2 Saturation ABG Base Excess POC ABG pCO2 ABG Hemoglobin ABG Oxyhemoglobin ABG Glucose Oxyhemoglobin Sodium Potassium 5.6 H D Chloride Carbon Dioxide BUN 33 H Creatinine Glucose 131 H POC Glucose 142 H 134 H Lactic Acid Calcium Phosphorus Magnesium AST ALT Lactate Dehydrogenase Total Bilirubin CK-MB (CK-2) C-Reactive Protein NT-Pro-B Natriuret Pep Total Protein Albumin Arterial Blood Glucose Urine WBC (Auto) Urine Creatinine 12/31/19 12/31/19 12/31/19 11:30 17:19 17:36 WBC RBC Hgb Hct MCHC RDW MCV MCH Lymph % (Auto) [place] % (Auto) [place] # Eos # Lymph # (Auto) [place] # (Auto) Eos # (Auto) Seg Neutrophils % Seg Neuts % (Manual) Baso # (Auto) Lymphocytes % (Manual) Monocytes % (Manual) Eosinophils % (Manual) Basophils % (Manual) Seg Neutrophils # Seg Neutrophils # Man Lymphocytes # (Manual) Monocytes # (Manual) Eosinophils # (Manual) Nucleated RBC % Basophils # (Manual) PT INR APTT Heparin Anti-Xa Level ABG pH POC ABG pO2 ABG pO2 ABG HCO3 ABG O2 Saturation ABG Base Excess POC ABG pCO2 ABG Hemoglobin ABG Oxyhemoglobin ABG Glucose Oxyhemoglobin Sodium Potassium Chloride Carbon Dioxide BUN 35 H Creatinine Glucose 156 H POC Glucose 158 H 181 H Lactic Acid Calcium Phosphorus Magnesium AST ALT Lactate Dehydrogenase Total Bilirubin CK-MB (CK-2) C-Reactive Protein NT-Pro-B Natriuret Pep Total Protein Albumin Arterial Blood Glucose Urine WBC (Auto) Urine Creatinine 12/31/19 12/31/19 12/31/19 18:16 19:41 21:53 WBC RBC Hgb Hct MCHC RDW MCV MCH Lymph % (Auto) [place] % (Auto) [place] # Eos # Lymph # (Auto) [place] # (Auto) Eos # (Auto) Seg Neutrophils % Seg Neuts % (Manual) Baso # (Auto) Lymphocytes % (Manual) Monocytes % (Manual) Eosinophils % (Manual) Basophils % (Manual) Seg Neutrophils # Seg Neutrophils # Man Lymphocytes # (Manual) Monocytes # (Manual) Eosinophils # (Manual) Nucleated RBC % Basophils # (Manual) PT INR APTT Heparin Anti-Xa Level 0.20 L ABG pH POC ABG pO2 ABG pO2 ABG HCO3 ABG O2 Saturation ABG Base Excess POC ABG pCO2 ABG Hemoglobin ABG Oxyhemoglobin ABG Glucose Oxyhemoglobin Sodium Potassium Chloride Carbon Dioxide BUN 34 H Creatinine Glucose 169 H POC Glucose 141 H Lactic Acid Calcium Phosphorus Magnesium AST ALT Lactate Dehydrogenase Total Bilirubin CK-MB (CK-2) C-Reactive Protein NT-Pro-B Natriuret Pep Total Protein Albumin Arterial Blood Glucose Urine WBC (Auto) Urine Creatinine 12/31/19 01/01/20 01/01/20 23:51 05:17 10:40 WBC RBC Hgb Hct MCHC RDW MCV MCH Lymph % (Auto) [place] % (Auto) [place] # Eos # Lymph # (Auto) [place] # (Auto) Eos # (Auto) Seg Neutrophils % Seg Neuts % (Manual) Baso # (Auto) Lymphocytes % (Manual) Monocytes % (Manual) Eosinophils % (Manual) Basophils % (Manual) Seg Neutrophils # Seg Neutrophils # Man Lymphocytes # (Manual) Monocytes # (Manual) Eosinophils # (Manual) Nucleated RBC % Basophils # (Manual) PT INR APTT Heparin Anti-Xa Level ABG pH POC ABG pO2 ABG pO2 ABG HCO3 ABG O2 Saturation ABG Base Excess POC ABG pCO2 ABG Hemoglobin ABG Oxyhemoglobin ABG Glucose Oxyhemoglobin Sodium Potassium Chloride Carbon Dioxide BUN 31 H Creatinine 0.7 L Glucose 137 H POC Glucose 131 H 155 H Lactic Acid Calcium Phosphorus Magnesium AST 73 H ALT 97 H Lactate Dehydrogenase Total Bilirubin CK-MB (CK-2) C-Reactive Protein NT-Pro-B Natriuret Pep 3866 H Total Protein Albumin 2.8 L Arterial Blood Glucose Urine WBC (Auto) Urine Creatinine 01/01/20 01/01/20 01/01/20 12:26 15:33 17:53 WBC 14.3 H RBC 3.35 L Hgb 9.1 L Hct 28.8 L MCHC RDW 17.0 H MCV MCH 27 L Lymph % (Auto) 7.0 L [place] % (Auto) 7.6 H [place] # Eos # Lymph # (Auto) 1.0 L [place] # (Auto) 1.1 H Eos # (Auto) Seg Neutrophils % 83.3 H Seg Neuts % (Manual) Baso # (Auto) Lymphocytes % (Manual) Monocytes % (Manual) Eosinophils % (Manual) Basophils % (Manual) Seg Neutrophils # 12.0 H Seg Neutrophils # Man Lymphocytes # (Manual) Monocytes # (Manual) Eosinophils # (Manual) Nucleated RBC % Basophils # (Manual) PT INR APTT Heparin Anti-Xa Level ABG pH POC ABG pO2 ABG pO2 ABG HCO3 ABG O2 Saturation ABG Base Excess POC ABG pCO2 ABG Hemoglobin ABG Oxyhemoglobin ABG Glucose Oxyhemoglobin Sodium Potassium Chloride Carbon Dioxide BUN Creatinine Glucose POC Glucose 128 H 128 H Lactic Acid Calcium Phosphorus Magnesium AST ALT Lactate Dehydrogenase Total Bilirubin CK-MB (CK-2) C-Reactive Protein NT-Pro-B Natriuret Pep Total Protein Albumin Arterial Blood Glucose Urine WBC (Auto) Urine Creatinine 01/01/20 01/02/20 01/02/20 23:04 05:39 07:00 WBC RBC Hgb Hct MCHC RDW MCV MCH Lymph % (Auto) [place] % (Auto) [place] # Eos # Lymph # (Auto) [place] # (Auto) Eos # (Auto) Seg Neutrophils % Seg Neuts % (Manual) Baso # (Auto) Lymphocytes % (Manual) Monocytes % (Manual) Eosinophils % (Manual) Basophils % (Manual) Seg Neutrophils # Seg Neutrophils # Man Lymphocytes # (Manual) Monocytes # (Manual) Eosinophils # (Manual) Nucleated RBC % Basophils # (Manual) PT INR APTT Heparin Anti-Xa Level 0.13 L ABG pH POC ABG pO2 ABG pO2 ABG HCO3 ABG O2 Saturation ABG Base Excess POC ABG pCO2 ABG Hemoglobin ABG Oxyhemoglobin ABG Glucose Oxyhemoglobin Sodium Potassium Chloride Carbon Dioxide BUN Creatinine Glucose POC Glucose 120 H 169 H Lactic Acid Calcium Phosphorus Magnesium AST ALT Lactate Dehydrogenase Total Bilirubin CK-MB (CK-2) C-Reactive Protein NT-Pro-B Natriuret Pep Total Protein Albumin Arterial Blood Glucose Urine WBC (Auto) Urine Creatinine 01/02/20 01/02/20 01/02/20 12:15 14:06 17:58 WBC RBC Hgb Hct MCHC RDW MCV MCH Lymph % (Auto) [place] % (Auto) [place] # Eos # Lymph # (Auto) [place] # (Auto) Eos # (Auto) Seg Neutrophils % Seg Neuts % (Manual) Baso # (Auto) Lymphocytes % (Manual) Monocytes % (Manual) Eosinophils % (Manual) Basophils % (Manual) Seg Neutrophils # Seg Neutrophils # Man Lymphocytes # (Manual) Monocytes # (Manual) Eosinophils # (Manual) Nucleated RBC % Basophils # (Manual) PT INR APTT Heparin Anti-Xa Level < 0.10 L ABG pH POC ABG pO2 ABG pO2 ABG HCO3 ABG O2 Saturation ABG Base Excess POC ABG pCO2 ABG Hemoglobin ABG Oxyhemoglobin ABG Glucose Oxyhemoglobin Sodium Potassium Chloride Carbon Dioxide BUN Creatinine Glucose POC Glucose 190 H 198 H Lactic Acid Calcium Phosphorus Magnesium AST ALT Lactate Dehydrogenase Total Bilirubin CK-MB (CK-2) C-Reactive Protein NT-Pro-B Natriuret Pep Total Protein Albumin Arterial Blood Glucose Urine WBC (Auto) Urine Creatinine 01/02/20 01/02/20 01/03/20 21:43 23:33 05:42 WBC RBC Hgb Hct MCHC RDW MCV MCH Lymph % (Auto) [place] % (Auto) [place] # Eos # Lymph # (Auto) [place] # (Auto) Eos # (Auto) Seg Neutrophils % Seg Neuts % (Manual) Baso # (Auto) Lymphocytes % (Manual) Monocytes % (Manual) Eosinophils % (Manual) Basophils % (Manual) Seg Neutrophils # Seg Neutrophils # Man Lymphocytes # (Manual) Monocytes # (Manual) Eosinophils # (Manual) Nucleated RBC % Basophils # (Manual) PT INR APTT Heparin Anti-Xa Level 0.10 L ABG pH POC ABG pO2 ABG pO2 ABG HCO3 ABG O2 Saturation ABG Base Excess POC ABG pCO2 ABG Hemoglobin ABG Oxyhemoglobin ABG Glucose Oxyhemoglobin Sodium Potassium Chloride Carbon Dioxide BUN Creatinine Glucose POC Glucose 180 H 163 H Lactic Acid Calcium Phosphorus Magnesium AST ALT Lactate Dehydrogenase Total Bilirubin CK-MB (CK-2) C-Reactive Protein NT-Pro-B Natriuret Pep Total Protein Albumin Arterial Blood Glucose Urine WBC (Auto) Urine Creatinine 01/03/20 01/03/20 01/03/20 06:50 07:25 07:45 WBC 12.1 H RBC 3.35 L Hgb 9.0 L Hct 28.9 L MCHC 31 L RDW 16.6 H MCV MCH 27 L Lymph % (Auto) 13.0 L [place] % (Auto) 8.6 H [place] # Eos # Lymph # (Auto) [place] # (Auto) 1.0 H Eos # (Auto) Seg Neutrophils % 75.9 H Seg Neuts % (Manual) Baso # (Auto) Lymphocytes % (Manual) Monocytes % (Manual) Eosinophils % (Manual) Basophils % (Manual) Seg Neutrophils # 9.2 H Seg Neutrophils # Man Lymphocytes # (Manual) Monocytes # (Manual) Eosinophils # (Manual) Nucleated RBC % Basophils # (Manual) PT INR APTT Heparin Anti-Xa Level 0.29 L ABG pH POC ABG pO2 ABG pO2 ABG HCO3 ABG O2 Saturation ABG Base Excess POC ABG pCO2 ABG Hemoglobin ABG Oxyhemoglobin ABG Glucose Oxyhemoglobin Sodium Potassium 3.3 L D Chloride Carbon Dioxide 35 H D BUN 23 H Creatinine 0.6 L Glucose 149 H POC Glucose Lactic Acid Calcium Phosphorus Magnesium AST ALT 88 H Lactate Dehydrogenase Total Bilirubin CK-MB (CK-2) C-Reactive Protein NT-Pro-B Natriuret Pep Total Protein 6.2 L Albumin 2.9 L Arterial Blood Glucose Urine WBC (Auto) Urine Creatinine 01/03/20 01/03/20 01/03/20 12:05 17:42 18:30 WBC RBC Hgb Hct MCHC RDW MCV MCH Lymph % (Auto) [place] % (Auto) [place] # Eos # Lymph # (Auto) [place] # (Auto) Eos # (Auto) Seg Neutrophils % Seg Neuts % (Manual) Baso # (Auto) Lymphocytes % (Manual) Monocytes % (Manual) Eosinophils % (Manual) Basophils % (Manual) Seg Neutrophils # Seg Neutrophils # Man Lymphocytes # (Manual) Monocytes # (Manual) Eosinophils # (Manual) Nucleated RBC % Basophils # (Manual) PT INR APTT Heparin Anti-Xa Level ABG pH POC ABG pO2 ABG pO2 70.7 L ABG HCO3 36.1 H ABG O2 Saturation 94.4 L ABG Base Excess 10.0 H POC ABG pCO2 ABG Hemoglobin 9.7 L ABG Oxyhemoglobin ABG Glucose Oxyhemoglobin 91.8 L Sodium Potassium Chloride Carbon Dioxide BUN Creatinine Glucose POC Glucose 128 H 132 H Lactic Acid Calcium Phosphorus Magnesium AST ALT Lactate Dehydrogenase Total Bilirubin CK-MB (CK-2) C-Reactive Protein NT-Pro-B Natriuret Pep Total Protein Albumin Arterial Blood Glucose Urine WBC (Auto) Urine Creatinine 01/04/20 01/04/20 01/04/20 00:10 04:26 05:23 WBC RBC Hgb Hct MCHC RDW MCV MCH Lymph % (Auto) [place] % (Auto) [place] # Eos # Lymph # (Auto) [place] # (Auto) Eos # (Auto) Seg Neutrophils % Seg Neuts % (Manual) Baso # (Auto) Lymphocytes % (Manual) Monocytes % (Manual) Eosinophils % (Manual) Basophils % (Manual) Seg Neutrophils # Seg Neutrophils # Man Lymphocytes # (Manual) Monocytes # (Manual) Eosinophils # (Manual) Nucleated RBC % Basophils # (Manual) PT INR APTT Heparin Anti-Xa Level 0.16 L ABG pH POC ABG pO2 ABG pO2 ABG HCO3 ABG O2 Saturation ABG Base Excess POC ABG pCO2 ABG Hemoglobin ABG Oxyhemoglobin ABG Glucose Oxyhemoglobin Sodium Potassium Chloride Carbon Dioxide BUN Creatinine Glucose POC Glucose 121 H 119 H Lactic Acid Calcium Phosphorus Magnesium AST ALT Lactate Dehydrogenase Total Bilirubin CK-MB (CK-2) C-Reactive Protein NT-Pro-B Natriuret Pep Total Protein Albumin Arterial Blood Glucose Urine WBC (Auto) Urine Creatinine 01/04/20 01/04/20 01/04/20 09:50 09:50 12:18 WBC 15.4 H RBC 3.30 L Hgb 8.7 L Hct 28.2 L MCHC 31 L RDW 17.0 H MCV MCH 26 L Lymph % (Auto) [place] % (Auto) 7.6 H [place] # Eos # Lymph # (Auto) [place] # (Auto) 1.2 H Eos # (Auto) Seg Neutrophils % 75.4 H Seg Neuts % (Manual) Baso # (Auto) Lymphocytes % (Manual) Monocytes % (Manual) Eosinophils % (Manual) Basophils % (Manual) Seg Neutrophils # 11.6 H Seg Neutrophils # Man Lymphocytes # (Manual) Monocytes # (Manual) Eosinophils # (Manual) Nucleated RBC % Basophils # (Manual) PT INR APTT Heparin Anti-Xa Level ABG pH POC ABG pO2 ABG pO2 ABG HCO3 ABG O2 Saturation ABG Base Excess POC ABG pCO2 ABG Hemoglobin ABG Oxyhemoglobin ABG Glucose Oxyhemoglobin Sodium 148 H Potassium 3.5 L Chloride Carbon Dioxide 32 H BUN Creatinine 0.6 L Glucose 114 H POC Glucose 111 H Lactic Acid Calcium Phosphorus Magnesium AST ALT 59 H Lactate Dehydrogenase Total Bilirubin CK-MB (CK-2) C-Reactive Protein NT-Pro-B Natriuret Pep Total Protein Albumin 2.6 L Arterial Blood Glucose Urine WBC (Auto) Urine Creatinine 01/05/20 01/05/20 01/05/20 04:05 04:05 05:19 WBC 11.7 H RBC 3.50 L Hgb 9.3 L Hct 29.9 L MCHC 31 L RDW 16.6 H MCV MCH 27 L Lymph % (Auto) 13.1 L [place] % (Auto) 9.7 H [place] # Eos # Lymph # (Auto) [place] # (Auto) 1.1 H Eos # (Auto) Seg Neutrophils % 74.0 H Seg Neuts % (Manual) Baso # (Auto) Lymphocytes % (Manual) Monocytes % (Manual) Eosinophils % (Manual) Basophils % (Manual) Seg Neutrophils # 8.6 H Seg Neutrophils # Man Lymphocytes # (Manual) Monocytes # (Manual) Eosinophils # (Manual) Nucleated RBC % Basophils # (Manual) PT INR APTT Heparin Anti-Xa Level ABG pH POC ABG pO2 ABG pO2 ABG HCO3 ABG O2 Saturation ABG Base Excess POC ABG pCO2 ABG Hemoglobin ABG Oxyhemoglobin ABG Glucose Oxyhemoglobin Sodium 151 H Potassium Chloride Carbon Dioxide 34 H BUN Creatinine 0.7 L Glucose POC Glucose 112 H Lactic Acid Calcium Phosphorus Magnesium AST ALT 59 H Lactate Dehydrogenase Total Bilirubin CK-MB (CK-2) C-Reactive Protein NT-Pro-B Natriuret Pep Total Protein 5.8 L Albumin 2.6 L Arterial Blood Glucose Urine WBC (Auto) Urine Creatinine 01/05/20 01/06/20 01/06/20 16:04 00:23 04:44 WBC RBC 3.36 L Hgb 8.9 L Hct 28.7 L MCHC 31 L RDW 16.9 H MCV MCH 26 L Lymph % (Auto) [place] % (Auto) 9.4 H [place] # Eos # Lymph # (Auto) [place] # (Auto) Eos # (Auto) Seg Neutrophils % Seg Neuts % (Manual) Baso # (Auto) Lymphocytes % (Manual) Monocytes % (Manual) Eosinophils % (Manual) Basophils % (Manual) Seg Neutrophils # Seg Neutrophils # Man Lymphocytes # (Manual) Monocytes # (Manual) Eosinophils # (Manual) Nucleated RBC % Basophils # (Manual) PT INR APTT Heparin Anti-Xa Level ABG pH POC ABG pO2 ABG pO2 ABG HCO3 ABG O2 Saturation ABG Base Excess POC ABG pCO2 ABG Hemoglobin ABG Oxyhemoglobin ABG Glucose Oxyhemoglobin Sodium 151 H Potassium 3.2 L Chloride Carbon Dioxide 34 H BUN Creatinine 0.6 L Glucose POC Glucose 107 H Lactic Acid Calcium Phosphorus Magnesium AST ALT Lactate Dehydrogenase Total Bilirubin CK-MB (CK-2) C-Reactive Protein NT-Pro-B Natriuret Pep Total Protein Albumin Arterial Blood Glucose Urine WBC (Auto) Urine Creatinine 01/06/20 01/06/20 01/06/20 04:44 05:33 12:04 WBC RBC Hgb Hct MCHC RDW MCV MCH Lymph % (Auto) [place] % (Auto) [place] # Eos # Lymph # (Auto) [place] # (Auto) Eos # (Auto) Seg Neutrophils % Seg Neuts % (Manual) Baso # (Auto) Lymphocytes % (Manual) Monocytes % (Manual) Eosinophils % (Manual) Basophils % (Manual) Seg Neutrophils # Seg Neutrophils # Man Lymphocytes # (Manual) Monocytes # (Manual) Eosinophils # (Manual) Nucleated RBC % Basophils # (Manual) PT INR APTT Heparin Anti-Xa Level ABG pH POC ABG pO2 ABG pO2 ABG HCO3 ABG O2 Saturation ABG Base Excess POC ABG pCO2 ABG Hemoglobin ABG Oxyhemoglobin ABG Glucose Oxyhemoglobin Sodium 151 H Potassium 3.4 L Chloride Carbon Dioxide 33 H BUN Creatinine 0.6 L Glucose 118 H POC Glucose 118 H 123 H Lactic Acid Calcium Phosphorus Magnesium AST ALT Lactate Dehydrogenase Total Bilirubin CK-MB (CK-2) C-Reactive Protein NT-Pro-B Natriuret Pep Total Protein 6.2 L Albumin 2.6 L Arterial Blood Glucose Urine WBC (Auto) Urine Creatinine 01/06/20 01/07/20 01/07/20 17:54 00:06 04:10 WBC RBC 3.42 L Hgb 8.9 L Hct 29.0 L MCHC 31 L RDW 17.1 H MCV MCH 26 L Lymph % (Auto) [place] % (Auto) 8.4 H [place] # Eos # Lymph # (Auto) [place] # (Auto) Eos # (Auto) Seg Neutrophils % Seg Neuts % (Manual) Baso # (Auto) Lymphocytes % (Manual) Monocytes % (Manual) Eosinophils % (Manual) Basophils % (Manual) Seg Neutrophils # Seg Neutrophils # Man Lymphocytes # (Manual) Monocytes # (Manual) Eosinophils # (Manual) Nucleated RBC % Basophils # (Manual) PT INR APTT Heparin Anti-Xa Level ABG pH POC ABG pO2 ABG pO2 ABG HCO3 ABG O2 Saturation ABG Base Excess POC ABG pCO2 ABG Hemoglobin ABG Oxyhemoglobin ABG Glucose Oxyhemoglobin Sodium Potassium Chloride Carbon Dioxide BUN Creatinine Glucose POC Glucose 112 H 126 H Lactic Acid Calcium Phosphorus Magnesium AST ALT Lactate Dehydrogenase Total Bilirubin CK-MB (CK-2) C-Reactive Protein NT-Pro-B Natriuret Pep Total Protein Albumin Arterial Blood Glucose Urine WBC (Auto) Urine Creatinine 01/07/20 01/07/20 01/07/20 04:10 05:59 12:27 WBC RBC Hgb Hct MCHC RDW MCV MCH Lymph % (Auto) [place] % (Auto) [place] # Eos # Lymph # (Auto) [place] # (Auto) Eos # (Auto) Seg Neutrophils % Seg Neuts % (Manual) Baso # (Auto) Lymphocytes % (Manual) Monocytes % (Manual) Eosinophils % (Manual) Basophils % (Manual) Seg Neutrophils # Seg Neutrophils # Man Lymphocytes # (Manual) Monocytes # (Manual) Eosinophils # (Manual) Nucleated RBC % Basophils # (Manual) PT INR APTT Heparin Anti-Xa Level ABG pH POC ABG pO2 ABG pO2 ABG HCO3 ABG O2 Saturation ABG Base Excess POC ABG pCO2 ABG Hemoglobin ABG Oxyhemoglobin ABG Glucose Oxyhemoglobin Sodium 153 H Potassium 3.5 L Chloride Carbon Dioxide 34 H BUN Creatinine 0.6 L Glucose 121 H POC Glucose 121 H 126 H Lactic Acid Calcium Phosphorus Magnesium AST ALT Lactate Dehydrogenase Total Bilirubin CK-MB (CK-2) C-Reactive Protein NT-Pro-B Natriuret Pep Total Protein 5.9 L Albumin 2.4 L Arterial Blood Glucose Urine WBC (Auto) Urine Creatinine 01/07/20 01/08/20 01/08/20 18:12 00:03 05:41 WBC RBC Hgb Hct MCHC RDW MCV MCH Lymph % (Auto) [place] % (Auto) [place] # Eos # Lymph # (Auto) [place] # (Auto) Eos # (Auto) Seg Neutrophils % Seg Neuts % (Manual) Baso # (Auto) Lymphocytes % (Manual) Monocytes % (Manual) Eosinophils % (Manual) Basophils % (Manual) Seg Neutrophils # Seg Neutrophils # Man Lymphocytes # (Manual) Monocytes # (Manual) Eosinophils # (Manual) Nucleated RBC % Basophils # (Manual) PT INR APTT Heparin Anti-Xa Level ABG pH POC ABG pO2 ABG pO2 ABG HCO3 ABG O2 Saturation ABG Base Excess POC ABG pCO2 ABG Hemoglobin ABG Oxyhemoglobin ABG Glucose Oxyhemoglobin Sodium Potassium Chloride Carbon Dioxide BUN Creatinine Glucose POC Glucose 124 H 130 H 138 H Lactic Acid Calcium Phosphorus Magnesium AST ALT Lactate Dehydrogenase Total Bilirubin CK-MB (CK-2) C-Reactive Protein NT-Pro-B Natriuret Pep Total Protein Albumin Arterial Blood Glucose Urine WBC (Auto) Urine Creatinine 01/08/20 01/08/20 01/08/20 09:28 11:42 18:21 WBC RBC Hgb Hct MCHC RDW MCV MCH Lymph % (Auto) [place] % (Auto) [place] # Eos # Lymph # (Auto) [place] # (Auto) Eos # (Auto) Seg Neutrophils % Seg Neuts % (Manual) Baso # (Auto) Lymphocytes % (Manual) Monocytes % (Manual) Eosinophils % (Manual) Basophils % (Manual) Seg Neutrophils # Seg Neutrophils # Man Lymphocytes # (Manual) Monocytes # (Manual) Eosinophils # (Manual) Nucleated RBC % Basophils # (Manual) PT INR APTT Heparin Anti-Xa Level ABG pH POC ABG pO2 ABG pO2 ABG HCO3 ABG O2 Saturation ABG Base Excess POC ABG pCO2 ABG Hemoglobin ABG Oxyhemoglobin ABG Glucose Oxyhemoglobin Sodium Potassium Chloride Carbon Dioxide BUN Creatinine Glucose POC Glucose 181 H 150 H 129 H Lactic Acid Calcium Phosphorus Magnesium AST ALT Lactate Dehydrogenase Total Bilirubin CK-MB (CK-2) C-Reactive Protein NT-Pro-B Natriuret Pep Total Protein Albumin Arterial Blood Glucose Urine WBC (Auto) Urine Creatinine 01/08/20 01/08/20 01/09/20 19:25 23:55 04:11 WBC RBC 3.43 L Hgb 8.9 L Hct 28.7 L MCHC 31 L RDW 17.6 H MCV MCH 26 L Lymph % (Auto) [place] % (Auto) 8.6 H [place] # Eos # Lymph # (Auto) [place] # (Auto) Eos # (Auto) Seg Neutrophils % Seg Neuts % (Manual) Baso # (Auto) Lymphocytes % (Manual) Monocytes % (Manual) Eosinophils % (Manual) Basophils % (Manual) Seg Neutrophils # Seg Neutrophils # Man Lymphocytes # (Manual) Monocytes # (Manual) Eosinophils # (Manual) Nucleated RBC % Basophils # (Manual) PT INR APTT Heparin Anti-Xa Level ABG pH POC ABG pO2 ABG pO2 ABG HCO3 ABG O2 Saturation ABG Base Excess POC ABG pCO2 ABG Hemoglobin ABG Oxyhemoglobin ABG Glucose Oxyhemoglobin Sodium Potassium Chloride Carbon Dioxide BUN Creatinine 0.7 L Glucose 117 H POC Glucose 132 H Lactic Acid Calcium Phosphorus Magnesium AST ALT Lactate Dehydrogenase Total Bilirubin CK-MB (CK-2) C-Reactive Protein NT-Pro-B Natriuret Pep Total Protein Albumin Arterial Blood Glucose Urine WBC (Auto) Urine Creatinine 01/09/20 01/09/20 01/09/20 04:11 05:38 22:58 WBC RBC Hgb Hct MCHC RDW MCV MCH Lymph % (Auto) [place] % (Auto) [place] # Eos # Lymph # (Auto) [place] # (Auto) Eos # (Auto) Seg Neutrophils % Seg Neuts % (Manual) Baso # (Auto) Lymphocytes % (Manual) Monocytes % (Manual) Eosinophils % (Manual) Basophils % (Manual) Seg Neutrophils # Seg Neutrophils # Man Lymphocytes # (Manual) Monocytes # (Manual) Eosinophils # (Manual) Nucleated RBC % Basophils # (Manual) PT INR APTT Heparin Anti-Xa Level ABG pH POC ABG pO2 ABG pO2 ABG HCO3 ABG O2 Saturation ABG Base Excess POC ABG pCO2 ABG Hemoglobin ABG Oxyhemoglobin ABG Glucose Oxyhemoglobin Sodium 147 H Potassium 3.3 L D Chloride Carbon Dioxide 32 H BUN Creatinine 0.6 L Glucose 106 H POC Glucose 107 H 113 H Lactic Acid Calcium Phosphorus Magnesium AST ALT Lactate Dehydrogenase Total Bilirubin CK-MB (CK-2) C-Reactive Protein NT-Pro-B Natriuret Pep Total Protein Albumin Arterial Blood Glucose Urine WBC (Auto) Urine Creatinine 01/10/20 01/10/20 01/10/20 04:05 11:36 17:54 WBC RBC Hgb Hct MCHC RDW MCV MCH Lymph % (Auto) [place] % (Auto) [place] # Eos # Lymph # (Auto) [place] # (Auto) Eos # (Auto) Seg Neutrophils % Seg Neuts % (Manual) Baso # (Auto) Lymphocytes % (Manual) Monocytes % (Manual) Eosinophils % (Manual) Basophils % (Manual) Seg Neutrophils # Seg Neutrophils # Man Lymphocytes # (Manual) Monocytes # (Manual) Eosinophils # (Manual) Nucleated RBC % Basophils # (Manual) PT INR APTT Heparin Anti-Xa Level ABG pH POC ABG pO2 ABG pO2 ABG HCO3 ABG O2 Saturation ABG Base Excess POC ABG pCO2 ABG Hemoglobin ABG Oxyhemoglobin ABG Glucose Oxyhemoglobin Sodium Potassium Chloride Carbon Dioxide BUN Creatinine 0.7 L Glucose 110 H POC Glucose 129 H 117 H Lactic Acid Calcium Phosphorus Magnesium AST ALT Lactate Dehydrogenase Total Bilirubin CK-MB (CK-2) C-Reactive Protein NT-Pro-B Natriuret Pep Total Protein Albumin Arterial Blood Glucose Urine WBC (Auto) Urine Creatinine 01/10/20 01/11/20 01/11/20 23:52 03:19 12:09 WBC RBC Hgb Hct MCHC RDW MCV MCH Lymph % (Auto) [place] % (Auto) [place] # Eos # Lymph # (Auto) [place] # (Auto) Eos # (Auto) Seg Neutrophils % Seg Neuts % (Manual) Baso # (Auto) Lymphocytes % (Manual) Monocytes % (Manual) Eosinophils % (Manual) Basophils % (Manual) Seg Neutrophils # Seg Neutrophils # Man Lymphocytes # (Manual) Monocytes # (Manual) Eosinophils # (Manual) Nucleated RBC % Basophils # (Manual) PT INR APTT Heparin Anti-Xa Level ABG pH POC ABG pO2 ABG pO2 ABG HCO3 ABG O2 Saturation ABG Base Excess POC ABG pCO2 ABG Hemoglobin ABG Oxyhemoglobin ABG Glucose Oxyhemoglobin Sodium Potassium Chloride Carbon Dioxide BUN Creatinine Glucose POC Glucose 117 H 136 H 115 H Lactic Acid Calcium Phosphorus Magnesium AST ALT Lactate Dehydrogenase Total Bilirubin CK-MB (CK-2) C-Reactive Protein NT-Pro-B Natriuret Pep Total Protein Albumin Arterial Blood Glucose Urine WBC (Auto) Urine Creatinine 01/11/20 01/11/20 01/12/20 18:27 23:28 00:23 WBC RBC Hgb 9.8 L Hct 31.6 L MCHC 31 L RDW 17.8 H MCV 83 L MCH 26 L Lymph % (Auto) [place] % (Auto) 8.0 H [place] # Eos # Lymph # (Auto) [place] # (Auto) Eos # (Auto) Seg Neutrophils % Seg Neuts % (Manual) Baso # (Auto) Lymphocytes % (Manual) Monocytes % (Manual) Eosinophils % (Manual) Basophils % (Manual) Seg Neutrophils # Seg Neutrophils # Man Lymphocytes # (Manual) Monocytes # (Manual) Eosinophils # (Manual) Nucleated RBC % Basophils # (Manual) PT INR APTT Heparin Anti-Xa Level ABG pH POC ABG pO2 ABG pO2 ABG HCO3 ABG O2 Saturation ABG Base Excess POC ABG pCO2 ABG Hemoglobin ABG Oxyhemoglobin ABG Glucose Oxyhemoglobin Sodium Potassium Chloride Carbon Dioxide BUN Creatinine Glucose POC Glucose 118 H 122 H Lactic Acid Calcium Phosphorus Magnesium AST ALT Lactate Dehydrogenase Total Bilirubin CK-MB (CK-2) C-Reactive Protein NT-Pro-B Natriuret Pep Total Protein Albumin Arterial Blood Glucose Urine WBC (Auto) Urine Creatinine 01/12/20 01/12/20 01/12/20 00:23 04:18 04:18 WBC RBC Hgb 9.6 L Hct 30.9 L MCHC 31 L RDW 17.3 H MCV 81 L MCH 25 L Lymph % (Auto) [place] % (Auto) [place] # Eos # Lymph # (Auto) [place] # (Auto) Eos # (Auto) Seg Neutrophils % Seg Neuts % (Manual) Baso # (Auto) Lymphocytes % (Manual) Monocytes % (Manual) Eosinophils % (Manual) Basophils % (Manual) Seg Neutrophils # Seg Neutrophils # Man Lymphocytes # (Manual) Monocytes # (Manual) Eosinophils # (Manual) Nucleated RBC % Basophils # (Manual) PT INR APTT Heparin Anti-Xa Level ABG pH POC ABG pO2 ABG pO2 ABG HCO3 ABG O2 Saturation ABG Base Excess POC ABG pCO2 ABG Hemoglobin ABG Oxyhemoglobin ABG Glucose Oxyhemoglobin Sodium Potassium Chloride Carbon Dioxide BUN Creatinine 0.7 L 0.7 L Glucose 111 H 108 H POC Glucose Lactic Acid Calcium Phosphorus Magnesium AST ALT Lactate Dehydrogenase Total Bilirubin CK-MB (CK-2) C-Reactive Protein NT-Pro-B Natriuret Pep Total Protein Albumin 2.6 L Arterial Blood Glucose Urine WBC (Auto) Urine Creatinine 01/12/20 01/12/20 01/12/20 06:03 12:27 13:58 WBC RBC Hgb Hct MCHC RDW MCV MCH Lymph % (Auto) [place] % (Auto) [place] # Eos # Lymph # (Auto) [place] # (Auto) Eos # (Auto) Seg Neutrophils % Seg Neuts % (Manual) Baso # (Auto) Lymphocytes % (Manual) Monocytes % (Manual) Eosinophils % (Manual) Basophils % (Manual) Seg Neutrophils # Seg Neutrophils # Man Lymphocytes # (Manual) Monocytes # (Manual) Eosinophils # (Manual) Nucleated RBC % Basophils # (Manual) PT INR APTT Heparin Anti-Xa Level ABG pH 7.453 H POC ABG pO2 76.6 L ABG pO2 ABG HCO3 ABG O2 Saturation ABG Base Excess POC ABG pCO2 ABG Hemoglobin 10.3 L ABG Oxyhemoglobin ABG Glucose 99 H Oxyhemoglobin Sodium Potassium Chloride Carbon Dioxide BUN Creatinine Glucose POC Glucose 128 H 121 H Lactic Acid Calcium Phosphorus Magnesium AST ALT Lactate Dehydrogenase Total Bilirubin CK-MB (CK-2) C-Reactive Protein NT-Pro-B Natriuret Pep Total Protein Albumin Arterial Blood Glucose 99 H Urine WBC (Auto) Urine Creatinine 01/12/20 01/13/20 01/13/20 18:24 12:01 17:46 WBC RBC Hgb Hct MCHC RDW MCV MCH Lymph % (Auto) [place] % (Auto) [place] # Eos # Lymph # (Auto) [place] # (Auto) Eos # (Auto) Seg Neutrophils % Seg Neuts % (Manual) Baso # (Auto) Lymphocytes % (Manual) Monocytes % (Manual) Eosinophils % (Manual) Basophils % (Manual) Seg Neutrophils # Seg Neutrophils # Man Lymphocytes # (Manual) Monocytes # (Manual) Eosinophils # (Manual) Nucleated RBC % Basophils # (Manual) PT INR APTT Heparin Anti-Xa Level ABG pH POC ABG pO2 ABG pO2 ABG HCO3 ABG O2 Saturation ABG Base Excess POC ABG pCO2 ABG Hemoglobin ABG Oxyhemoglobin ABG Glucose Oxyhemoglobin Sodium Potassium Chloride Carbon Dioxide BUN Creatinine Glucose POC Glucose 119 H 107 H 124 H Lactic Acid Calcium Phosphorus Magnesium AST ALT Lactate Dehydrogenase Total Bilirubin CK-MB (CK-2) C-Reactive Protein NT-Pro-B Natriuret Pep Total Protein Albumin Arterial Blood Glucose Urine WBC (Auto) Urine Creatinine 01/13/20 01/14/20 01/14/20 20:40 00:10 05:33 WBC RBC Hgb Hct MCHC RDW MCV MCH Lymph % (Auto) [place] % (Auto) [place] # Eos # Lymph # (Auto) [place] # (Auto) Eos # (Auto) Seg Neutrophils % Seg Neuts % (Manual) Baso # (Auto) Lymphocytes % (Manual) Monocytes % (Manual) Eosinophils % (Manual) Basophils % (Manual) Seg Neutrophils # Seg Neutrophils # Man Lymphocytes # (Manual) Monocytes # (Manual) Eosinophils # (Manual) Nucleated RBC % Basophils # (Manual) PT INR APTT Heparin Anti-Xa Level ABG pH POC ABG pO2 ABG pO2 65.3 L ABG HCO3 31.8 H ABG O2 Saturation 93.5 L ABG Base Excess 6.7 H POC ABG pCO2 ABG Hemoglobin 13.3 L ABG Oxyhemoglobin ABG Glucose Oxyhemoglobin 90.9 L Sodium Potassium Chloride Carbon Dioxide BUN Creatinine Glucose POC Glucose 111 H 111 H Lactic Acid Calcium Phosphorus Magnesium AST ALT Lactate Dehydrogenase Total Bilirubin CK-MB (CK-2) C-Reactive Protein NT-Pro-B Natriuret Pep Total Protein Albumin Arterial Blood Glucose Urine WBC (Auto) Urine Creatinine 01/14/20 01/14/20 01/14/20 12:10 16:14 16:14 WBC RBC Hgb 10.6 L Hct 34.2 L MCHC 31 L RDW 18.3 H MCV 83 L MCH 26 L Lymph % (Auto) [place] % (Auto) 7.4 H [place] # Eos # Lymph # (Auto) [place] # (Auto) Eos # (Auto) Seg Neutrophils % 71.9 H Seg Neuts % (Manual) Baso # (Auto) Lymphocytes % (Manual) Monocytes % (Manual) Eosinophils % (Manual) Basophils % (Manual) Seg Neutrophils # Seg Neutrophils # Man Lymphocytes # (Manual) Monocytes # (Manual) Eosinophils # (Manual) Nucleated RBC % Basophils # (Manual) PT INR APTT Heparin Anti-Xa Level ABG pH POC ABG pO2 ABG pO2 ABG HCO3 ABG O2 Saturation ABG Base Excess POC ABG pCO2 ABG Hemoglobin ABG Oxyhemoglobin ABG Glucose Oxyhemoglobin Sodium Potassium Chloride Carbon Dioxide 31 H BUN Creatinine 0.6 L Glucose 131 H POC Glucose 139 H Lactic Acid Calcium Phosphorus Magnesium AST ALT Lactate Dehydrogenase Total Bilirubin CK-MB (CK-2) C-Reactive Protein NT-Pro-B Natriuret Pep Total Protein Albumin Arterial Blood Glucose Urine WBC (Auto) Urine Creatinine 01/14/20 01/15/20 01/15/20 18:05 00:52 05:35 WBC RBC Hgb Hct MCHC RDW MCV MCH Lymph % (Auto) [place] % (Auto) [place] # Eos # Lymph # (Auto) [place] # (Auto) Eos # (Auto) Seg Neutrophils % Seg Neuts % (Manual) Baso # (Auto) Lymphocytes % (Manual) Monocytes % (Manual) Eosinophils % (Manual) Basophils % (Manual) Seg Neutrophils # Seg Neutrophils # Man Lymphocytes # (Manual) Monocytes # (Manual) Eosinophils # (Manual) Nucleated RBC % Basophils # (Manual) PT INR APTT Heparin Anti-Xa Level ABG pH POC ABG pO2 ABG pO2 ABG HCO3 ABG O2 Saturation ABG Base Excess POC ABG pCO2 ABG Hemoglobin ABG Oxyhemoglobin ABG Glucose Oxyhemoglobin Sodium Potassium Chloride Carbon Dioxide BUN Creatinine Glucose POC Glucose 147 H 140 H 159 H Lactic Acid Calcium Phosphorus Magnesium AST ALT Lactate Dehydrogenase Total Bilirubin CK-MB (CK-2) C-Reactive Protein NT-Pro-B Natriuret Pep Total Protein Albumin Arterial Blood Glucose Urine WBC (Auto) Urine Creatinine 01/15/20 01/15/20 01/16/20 12:52 17:43 00:32 WBC RBC Hgb Hct MCHC RDW MCV MCH Lymph % (Auto) [place] % (Auto) [place] # Eos # Lymph # (Auto) [place] # (Auto) Eos # (Auto) Seg Neutrophils % Seg Neuts % (Manual) Baso # (Auto) Lymphocytes % (Manual) Monocytes % (Manual) Eosinophils % (Manual) Basophils % (Manual) Seg Neutrophils # Seg Neutrophils # Man Lymphocytes # (Manual) Monocytes # (Manual) Eosinophils # (Manual) Nucleated RBC % Basophils # (Manual) PT INR APTT Heparin Anti-Xa Level ABG pH POC ABG pO2 ABG pO2 ABG HCO3 ABG O2 Saturation ABG Base Excess POC ABG pCO2 ABG Hemoglobin ABG Oxyhemoglobin ABG Glucose Oxyhemoglobin Sodium Potassium Chloride Carbon Dioxide BUN Creatinine Glucose POC Glucose 164 H 167 H 153 H Lactic Acid Calcium Phosphorus Magnesium AST ALT Lactate Dehydrogenase Total Bilirubin CK-MB (CK-2) C-Reactive Protein NT-Pro-B Natriuret Pep Total Protein Albumin Arterial Blood Glucose Urine WBC (Auto) Urine Creatinine 01/16/20 01/16/20 01/17/20 05:46 11:48 06:38 WBC RBC Hgb Hct MCHC RDW MCV MCH Lymph % (Auto) [place] % (Auto) [place] # Eos # Lymph # (Auto) [place] # (Auto) Eos # (Auto) Seg Neutrophils % Seg Neuts % (Manual) Baso # (Auto) Lymphocytes % (Manual) Monocytes % (Manual) Eosinophils % (Manual) Basophils % (Manual) Seg Neutrophils # Seg Neutrophils # Man Lymphocytes # (Manual) Monocytes # (Manual) Eosinophils # (Manual) Nucleated RBC % Basophils # (Manual) PT INR APTT Heparin Anti-Xa Level ABG pH POC ABG pO2 ABG pO2 ABG HCO3 ABG O2 Saturation ABG Base Excess POC ABG pCO2 ABG Hemoglobin ABG Oxyhemoglobin ABG Glucose Oxyhemoglobin Sodium Potassium Chloride Carbon Dioxide BUN Creatinine Glucose POC Glucose 163 H 155 H 116 H Lactic Acid Calcium Phosphorus Magnesium AST ALT Lactate Dehydrogenase Total Bilirubin CK-MB (CK-2) C-Reactive Protein NT-Pro-B Natriuret Pep Total Protein Albumin Arterial Blood Glucose Urine WBC (Auto) Urine Creatinine 01/17/20 01/17/20 01/18/20 11:36 17:43 00:12 WBC RBC Hgb Hct MCHC RDW MCV MCH Lymph % (Auto) [place] % (Auto) [place] # Eos # Lymph # (Auto) [place] # (Auto) Eos # (Auto) Seg Neutrophils % Seg Neuts % (Manual) Baso # (Auto) Lymphocytes % (Manual) Monocytes % (Manual) Eosinophils % (Manual) Basophils % (Manual) Seg Neutrophils # Seg Neutrophils # Man Lymphocytes # (Manual) Monocytes # (Manual) Eosinophils # (Manual) Nucleated RBC % Basophils # (Manual) PT INR APTT Heparin Anti-Xa Level ABG pH POC ABG pO2 ABG pO2 ABG HCO3 ABG O2 Saturation ABG Base Excess POC ABG pCO2 ABG Hemoglobin ABG Oxyhemoglobin ABG Glucose Oxyhemoglobin Sodium Potassium Chloride Carbon Dioxide BUN Creatinine Glucose POC Glucose 110 H 134 H 108 H Lactic Acid Calcium Phosphorus Magnesium AST ALT Lactate Dehydrogenase Total Bilirubin CK-MB (CK-2) C-Reactive Protein NT-Pro-B Natriuret Pep Total Protein Albumin Arterial Blood Glucose Urine WBC (Auto) Urine Creatinine 01/18/20 01/18/20 01/18/20 05:37 06:46 06:46 WBC RBC Hgb 10.1 L Hct 32.2 L MCHC 31 L RDW 18.1 H MCV 81 L MCH 25 L Lymph % (Auto) [place] % (Auto) [place] # Eos # Lymph # (Auto) [place] # (Auto) Eos # (Auto) Seg Neutrophils % 71.9 H Seg Neuts % (Manual) Baso # (Auto) Lymphocytes % (Manual) Monocytes % (Manual) Eosinophils % (Manual) Basophils % (Manual) Seg Neutrophils # Seg Neutrophils # Man Lymphocytes # (Manual) Monocytes # (Manual) Eosinophils # (Manual) Nucleated RBC % Basophils # (Manual) PT INR APTT Heparin Anti-Xa Level ABG pH POC ABG pO2 ABG pO2 ABG HCO3 ABG O2 Saturation ABG Base Excess POC ABG pCO2 ABG Hemoglobin ABG Oxyhemoglobin ABG Glucose Oxyhemoglobin Sodium Potassium Chloride Carbon Dioxide BUN Creatinine 0.7 L Glucose 155 H POC Glucose 168 H Lactic Acid Calcium Phosphorus Magnesium AST ALT Lactate Dehydrogenase Total Bilirubin CK-MB (CK-2) C-Reactive Protein NT-Pro-B Natriuret Pep Total Protein Albumin Arterial Blood Glucose Urine WBC (Auto) Urine Creatinine 01/18/20 01/18/20 01/18/20 12:05 17:14 23:28 WBC RBC Hgb Hct MCHC RDW MCV MCH Lymph % (Auto) [place] % (Auto) [place] # Eos # Lymph # (Auto) [place] # (Auto) Eos # (Auto) Seg Neutrophils % Seg Neuts % (Manual) Baso # (Auto) Lymphocytes % (Manual) Monocytes % (Manual) Eosinophils % (Manual) Basophils % (Manual) Seg Neutrophils # Seg Neutrophils # Man Lymphocytes # (Manual) Monocytes # (Manual) Eosinophils # (Manual) Nucleated RBC % Basophils # (Manual) PT INR APTT Heparin Anti-Xa Level ABG pH POC ABG pO2 ABG pO2 ABG HCO3 ABG O2 Saturation ABG Base Excess POC ABG pCO2 ABG Hemoglobin ABG Oxyhemoglobin ABG Glucose Oxyhemoglobin Sodium Potassium Chloride Carbon Dioxide BUN Creatinine Glucose POC Glucose 128 H 126 H 128 H Lactic Acid Calcium Phosphorus Magnesium AST ALT Lactate Dehydrogenase Total Bilirubin CK-MB (CK-2) C-Reactive Protein NT-Pro-B Natriuret Pep Total Protein Albumin Arterial Blood Glucose Urine WBC (Auto) Urine Creatinine 01/19/20 01/19/20 01/19/20 05:39 12:33 17:36 WBC RBC Hgb Hct MCHC RDW MCV MCH Lymph % (Auto) [place] % (Auto) [place] # Eos # Lymph # (Auto) [place] # (Auto) Eos # (Auto) Seg Neutrophils % Seg Neuts % (Manual) Baso # (Auto) Lymphocytes % (Manual) Monocytes % (Manual) Eosinophils % (Manual) Basophils % (Manual) Seg Neutrophils # Seg Neutrophils # Man Lymphocytes # (Manual) Monocytes # (Manual) Eosinophils # (Manual) Nucleated RBC % Basophils # (Manual) PT INR APTT Heparin Anti-Xa Level ABG pH POC ABG pO2 ABG pO2 ABG HCO3 ABG O2 Saturation ABG Base Excess POC ABG pCO2 ABG Hemoglobin ABG Oxyhemoglobin ABG Glucose Oxyhemoglobin Sodium Potassium Chloride Carbon Dioxide BUN Creatinine Glucose POC Glucose 164 H 171 H 152 H Lactic Acid Calcium Phosphorus Magnesium AST ALT Lactate Dehydrogenase Total Bilirubin CK-MB (CK-2) C-Reactive Protein NT-Pro-B Natriuret Pep Total Protein Albumin Arterial Blood Glucose Urine WBC (Auto) Urine Creatinine 01/20/20 01/20/20 01/20/20 00:12 05:20 05:35 WBC RBC Hgb 9.2 L Hct 29.4 L MCHC 31 L RDW 17.9 H MCV 81 L MCH 25 L Lymph % (Auto) [place] % (Auto) [place] # Eos # Lymph # (Auto) [place] # (Auto) Eos # (Auto) Seg Neutrophils % Seg Neuts % (Manual) Baso # (Auto) Lymphocytes % (Manual) Monocytes % (Manual) Eosinophils % (Manual) Basophils % (Manual) Seg Neutrophils # Seg Neutrophils # Man Lymphocytes # (Manual) Monocytes # (Manual) Eosinophils # (Manual) Nucleated RBC % Basophils # (Manual) PT INR APTT Heparin Anti-Xa Level ABG pH POC ABG pO2 ABG pO2 ABG HCO3 ABG O2 Saturation ABG Base Excess POC ABG pCO2 ABG Hemoglobin ABG Oxyhemoglobin ABG Glucose Oxyhemoglobin Sodium Potassium Chloride Carbon Dioxide BUN Creatinine Glucose POC Glucose 120 H 136 H Lactic Acid Calcium Phosphorus Magnesium AST ALT Lactate Dehydrogenase Total Bilirubin CK-MB (CK-2) C-Reactive Protein NT-Pro-B Natriuret Pep Total Protein Albumin Arterial Blood Glucose Urine WBC (Auto) Urine Creatinine 01/20/20 01/20/20 01/20/20 05:40 11:58 14:55 WBC RBC Hgb 9.0 L Hct 28.3 L MCHC RDW MCV MCH Lymph % (Auto) [place] % (Auto) [place] # Eos # Lymph # (Auto) [place] # (Auto) Eos # (Auto) Seg Neutrophils % Seg Neuts % (Manual) Baso # (Auto) Lymphocytes % (Manual) Monocytes % (Manual) Eosinophils % (Manual) Basophils % (Manual) Seg Neutrophils # Seg Neutrophils # Man Lymphocytes # (Manual) Monocytes # (Manual) Eosinophils # (Manual) Nucleated RBC % Basophils # (Manual) PT INR APTT Heparin Anti-Xa Level ABG pH POC ABG pO2 ABG pO2 ABG HCO3 ABG O2 Saturation ABG Base Excess POC ABG pCO2 ABG Hemoglobin ABG Oxyhemoglobin ABG Glucose Oxyhemoglobin Sodium Potassium Chloride Carbon Dioxide 32 H BUN 22 H Creatinine 0.7 L Glucose 128 H POC Glucose 152 H Lactic Acid Calcium Phosphorus Magnesium AST ALT Lactate Dehydrogenase Total Bilirubin CK-MB (CK-2) C-Reactive Protein NT-Pro-B Natriuret Pep Total Protein Albumin Arterial Blood Glucose Urine WBC (Auto) Urine Creatinine 01/20/20 01/20/20 01/20/20 14:55 18:14 21:35 WBC RBC Hgb Hct MCHC RDW MCV MCH Lymph % (Auto) [place] % (Auto) [place] # Eos # Lymph # (Auto) [place] # (Auto) Eos # (Auto) Seg Neutrophils % Seg Neuts % (Manual) Baso # (Auto) Lymphocytes % (Manual) Monocytes % (Manual) Eosinophils % (Manual) Basophils % (Manual) Seg Neutrophils # Seg Neutrophils # Man Lymphocytes # (Manual) Monocytes # (Manual) Eosinophils # (Manual) Nucleated RBC % Basophils # (Manual) PT 20.4 H INR 1.72 H APTT 40.6 H Heparin Anti-Xa Level > 2.00 H ABG pH POC ABG pO2 ABG pO2 ABG HCO3 ABG O2 Saturation ABG Base Excess POC ABG pCO2 ABG Hemoglobin ABG Oxyhemoglobin ABG Glucose Oxyhemoglobin Sodium Potassium Chloride Carbon Dioxide BUN Creatinine Glucose POC Glucose 150 H Lactic Acid Calcium Phosphorus Magnesium AST ALT Lactate Dehydrogenase Total Bilirubin CK-MB (CK-2) C-Reactive Protein NT-Pro-B Natriuret Pep Total Protein Albumin Arterial Blood Glucose Urine WBC (Auto) Urine Creatinine 01/21/20 01/21/20 01/21/20 00:30 05:47 05:59 WBC RBC Hgb Hct MCHC RDW MCV MCH Lymph % (Auto) [place] % (Auto) [place] # Eos # Lymph # (Auto) [place] # (Auto) Eos # (Auto) Seg Neutrophils % Seg Neuts % (Manual) Baso # (Auto) Lymphocytes % (Manual) Monocytes % (Manual) Eosinophils % (Manual) Basophils % (Manual) Seg Neutrophils # Seg Neutrophils # Man Lymphocytes # (Manual) Monocytes # (Manual) Eosinophils # (Manual) Nucleated RBC % Basophils # (Manual) PT INR APTT Heparin Anti-Xa Level 1.93 H ABG pH POC ABG pO2 ABG pO2 ABG HCO3 ABG O2 Saturation ABG Base Excess POC ABG pCO2 ABG Hemoglobin ABG Oxyhemoglobin ABG Glucose Oxyhemoglobin Sodium Potassium Chloride Carbon Dioxide BUN Creatinine Glucose POC Glucose 126 H 148 H Lactic Acid Calcium Phosphorus Magnesium AST ALT Lactate Dehydrogenase Total Bilirubin CK-MB (CK-2) C-Reactive Protein NT-Pro-B Natriuret Pep Total Protein Albumin Arterial Blood Glucose Urine WBC (Auto) Urine Creatinine 01/21/20 01/21/20 01/21/20 12:32 18:20 23:54 WBC RBC Hgb Hct MCHC RDW MCV MCH Lymph % (Auto) [place] % (Auto) [place] # Eos # Lymph # (Auto) [place] # (Auto) Eos # (Auto) Seg Neutrophils % Seg Neuts % (Manual) Baso # (Auto) Lymphocytes % (Manual) Monocytes % (Manual) Eosinophils % (Manual) Basophils % (Manual) Seg Neutrophils # Seg Neutrophils # Man Lymphocytes # (Manual) Monocytes # (Manual) Eosinophils # (Manual) Nucleated RBC % Basophils # (Manual) PT INR APTT Heparin Anti-Xa Level 1.28 H ABG pH POC ABG pO2 ABG pO2 ABG HCO3 ABG O2 Saturation ABG Base Excess POC ABG pCO2 ABG Hemoglobin ABG Oxyhemoglobin ABG Glucose Oxyhemoglobin Sodium Potassium Chloride Carbon Dioxide BUN Creatinine Glucose POC Glucose 112 H 146 H Lactic Acid Calcium Phosphorus Magnesium AST ALT Lactate Dehydrogenase Total Bilirubin CK-MB (CK-2) C-Reactive Protein NT-Pro-B Natriuret Pep Total Protein Albumin Arterial Blood Glucose Urine WBC (Auto) Urine Creatinine 01/22/20 01/22/20 01/22/20 04:45 04:45 05:48 WBC RBC Hgb 9.3 L Hct 29.0 L MCHC RDW MCV MCH Lymph % (Auto) [place] % (Auto) [place] # Eos # Lymph # (Auto) [place] # (Auto) Eos # (Auto) Seg Neutrophils % Seg Neuts % (Manual) Baso # (Auto) Lymphocytes % (Manual) Monocytes % (Manual) Eosinophils % (Manual) Basophils % (Manual) Seg Neutrophils # Seg Neutrophils # Man Lymphocytes # (Manual) Monocytes # (Manual) Eosinophils # (Manual) Nucleated RBC % Basophils # (Manual) PT INR APTT Heparin Anti-Xa Level 1.34 H ABG pH POC ABG pO2 ABG pO2 ABG HCO3 ABG O2 Saturation ABG Base Excess POC ABG pCO2 ABG Hemoglobin ABG Oxyhemoglobin ABG Glucose Oxyhemoglobin Sodium Potassium Chloride Carbon Dioxide BUN Creatinine Glucose POC Glucose 142 H Lactic Acid Calcium Phosphorus Magnesium AST ALT Lactate Dehydrogenase Total Bilirubin CK-MB (CK-2) C-Reactive Protein NT-Pro-B Natriuret Pep Total Protein Albumin Arterial Blood Glucose Urine WBC (Auto) Urine Creatinine 01/22/20 01/22/20 01/22/20 08:09 08:22 09:58 WBC RBC Hgb Hct MCHC RDW MCV MCH Lymph % (Auto) [place] % (Auto) [place] # Eos # Lymph # (Auto) [place] # (Auto) Eos # (Auto) Seg Neutrophils % Seg Neuts % (Manual) Baso # (Auto) Lymphocytes % (Manual) Monocytes % (Manual) Eosinophils % (Manual) Basophils % (Manual) Seg Neutrophils # Seg Neutrophils # Man Lymphocytes # (Manual) Monocytes # (Manual) Eosinophils # (Manual) Nucleated RBC % Basophils # (Manual) PT 16.9 H INR 1.34 H APTT Heparin Anti-Xa Level ABG pH POC ABG pO2 ABG pO2 ABG HCO3 ABG O2 Saturation ABG Base Excess POC ABG pCO2 ABG Hemoglobin ABG Oxyhemoglobin ABG Glucose Oxyhemoglobin Sodium Potassium Chloride 97.8 L Carbon Dioxide BUN 29 H Creatinine Glucose 128 H POC Glucose 131 H Lactic Acid Calcium Phosphorus Magnesium AST ALT Lactate Dehydrogenase Total Bilirubin CK-MB (CK-2) C-Reactive Protein NT-Pro-B Natriuret Pep Total Protein Albumin Arterial Blood Glucose Urine WBC (Auto) Urine Creatinine 01/22/20 01/22/20 01/22/20 12:44 16:13 18:18 WBC RBC Hgb Hct MCHC RDW MCV MCH Lymph % (Auto) [place] % (Auto) [place] # Eos # Lymph # (Auto) [place] # (Auto) Eos # (Auto) Seg Neutrophils % Seg Neuts % (Manual) Baso # (Auto) Lymphocytes % (Manual) Monocytes % (Manual) Eosinophils % (Manual) Basophils % (Manual) Seg Neutrophils # Seg Neutrophils # Man Lymphocytes # (Manual) Monocytes # (Manual) Eosinophils # (Manual) Nucleated RBC % Basophils # (Manual) PT INR APTT Heparin Anti-Xa Level ABG pH POC ABG pO2 ABG pO2 ABG HCO3 ABG O2 Saturation ABG Base Excess POC ABG pCO2 ABG Hemoglobin ABG Oxyhemoglobin ABG Glucose Oxyhemoglobin Sodium Potassium Chloride Carbon Dioxide BUN Creatinine Glucose POC Glucose 156 H 133 H 155 H Lactic Acid Calcium Phosphorus Magnesium AST ALT Lactate Dehydrogenase Total Bilirubin CK-MB (CK-2) C-Reactive Protein NT-Pro-B Natriuret Pep Total Protein Albumin Arterial Blood Glucose Urine WBC (Auto) Urine Creatinine 01/22/20 01/23/20 01/23/20 23:22 05:37 12:59 WBC RBC Hgb Hct MCHC RDW MCV MCH Lymph % (Auto) [place] % (Auto) [place] # Eos # Lymph # (Auto) [place] # (Auto) Eos # (Auto) Seg Neutrophils % Seg Neuts % (Manual) Baso # (Auto) Lymphocytes % (Manual) Monocytes % (Manual) Eosinophils % (Manual) Basophils % (Manual) Seg Neutrophils # Seg Neutrophils # Man Lymphocytes # (Manual) Monocytes # (Manual) Eosinophils # (Manual) Nucleated RBC % Basophils # (Manual) PT INR APTT Heparin Anti-Xa Level ABG pH POC ABG pO2 ABG pO2 ABG HCO3 ABG O2 Saturation ABG Base Excess POC ABG pCO2 ABG Hemoglobin ABG Oxyhemoglobin ABG Glucose Oxyhemoglobin Sodium Potassium Chloride Carbon Dioxide BUN Creatinine Glucose POC Glucose 148 H 163 H 175 H Lactic Acid Calcium Phosphorus Magnesium AST ALT Lactate Dehydrogenase Total Bilirubin CK-MB (CK-2) C-Reactive Protein NT-Pro-B Natriuret Pep Total Protein Albumin Arterial Blood Glucose Urine WBC (Auto) Urine Creatinine 01/23/20 01/23/20 01/24/20 17:28 23:56 04:30 WBC RBC 3.46 L Hgb 8.8 L Hct 27.8 L MCHC RDW 18.2 H MCV 81 L MCH 25 L Lymph % (Auto) [place] % (Auto) 7.8 H [place] # Eos # Lymph # (Auto) [place] # (Auto) Eos # (Auto) Seg Neutrophils % Seg Neuts % (Manual) Baso # (Auto) Lymphocytes % (Manual) Monocytes % (Manual) Eosinophils % (Manual) Basophils % (Manual) Seg Neutrophils # Seg Neutrophils # Man Lymphocytes # (Manual) Monocytes # (Manual) Eosinophils # (Manual) Nucleated RBC % Basophils # (Manual) PT INR APTT Heparin Anti-Xa Level ABG pH POC ABG pO2 ABG pO2 ABG HCO3 ABG O2 Saturation ABG Base Excess POC ABG pCO2 ABG Hemoglobin ABG Oxyhemoglobin ABG Glucose Oxyhemoglobin Sodium Potassium Chloride Carbon Dioxide BUN Creatinine Glucose POC Glucose 165 H 177 H Lactic Acid Calcium Phosphorus Magnesium AST ALT Lactate Dehydrogenase Total Bilirubin CK-MB (CK-2) C-Reactive Protein NT-Pro-B Natriuret Pep Total Protein Albumin Arterial Blood Glucose Urine WBC (Auto) Urine Creatinine 01/24/20 01/24/20 01/24/20 04:30 07:18 12:06 WBC RBC Hgb Hct MCHC RDW MCV MCH Lymph % (Auto) [place] % (Auto) [place] # Eos # Lymph # (Auto) [place] # (Auto) Eos # (Auto) Seg Neutrophils % Seg Neuts % (Manual) Baso # (Auto) Lymphocytes % (Manual) Monocytes % (Manual) Eosinophils % (Manual) Basophils % (Manual) Seg Neutrophils # Seg Neutrophils # Man Lymphocytes # (Manual) Monocytes # (Manual) Eosinophils # (Manual) Nucleated RBC % Basophils # (Manual) PT INR APTT Heparin Anti-Xa Level ABG pH POC ABG pO2 ABG pO2 ABG HCO3 ABG O2 Saturation ABG Base Excess POC ABG pCO2 ABG Hemoglobin ABG Oxyhemoglobin ABG Glucose Oxyhemoglobin Sodium Potassium Chloride 97.9 L Carbon Dioxide BUN 31 H Creatinine Glucose 146 H POC Glucose 151 H 133 H Lactic Acid Calcium Phosphorus Magnesium AST ALT Lactate Dehydrogenase Total Bilirubin CK-MB (CK-2) C-Reactive Protein NT-Pro-B Natriuret Pep Total Protein Albumin Arterial Blood Glucose Urine WBC (Auto) Urine Creatinine 01/24/20 01/25/20 01/25/20 17:36 00:08 04:25 WBC RBC 3.50 L Hgb 8.7 L Hct 27.9 L MCHC 31 L RDW 18.2 H MCV 80 L MCH 25 L Lymph % (Auto) [place] % (Auto) 8.5 H [place] # Eos # Lymph # (Auto) [place] # (Auto) Eos # (Auto) Seg Neutrophils % Seg Neuts % (Manual) Baso # (Auto) Lymphocytes % (Manual) Monocytes % (Manual) Eosinophils % (Manual) Basophils % (Manual) Seg Neutrophils # Seg Neutrophils # Man Lymphocytes # (Manual) Monocytes # (Manual) Eosinophils # (Manual) Nucleated RBC % Basophils # (Manual) PT INR APTT Heparin Anti-Xa Level ABG pH POC ABG pO2 ABG pO2 ABG HCO3 ABG O2 Saturation ABG Base Excess POC ABG pCO2 ABG Hemoglobin ABG Oxyhemoglobin ABG Glucose Oxyhemoglobin Sodium Potassium Chloride Carbon Dioxide BUN Creatinine Glucose POC Glucose 133 H 129 H Lactic Acid Calcium Phosphorus Magnesium AST ALT Lactate Dehydrogenase Total Bilirubin CK-MB (CK-2) C-Reactive Protein NT-Pro-B Natriuret Pep Total Protein Albumin Arterial Blood Glucose Urine WBC (Auto) Urine Creatinine 01/25/20 01/25/20 01/25/20 04:25 05:38 11:52 WBC RBC Hgb Hct MCHC RDW MCV MCH Lymph % (Auto) [place] % (Auto) [place] # Eos # Lymph # (Auto) [place] # (Auto) Eos # (Auto) Seg Neutrophils % Seg Neuts % (Manual) Baso # (Auto) Lymphocytes % (Manual) Monocytes % (Manual) Eosinophils % (Manual) Basophils % (Manual) Seg Neutrophils # Seg Neutrophils # Man Lymphocytes # (Manual) Monocytes # (Manual) Eosinophils # (Manual) Nucleated RBC % Basophils # (Manual) PT INR APTT Heparin Anti-Xa Level ABG pH POC ABG pO2 ABG pO2 ABG HCO3 ABG O2 Saturation ABG Base Excess POC ABG pCO2 ABG Hemoglobin ABG Oxyhemoglobin ABG Glucose Oxyhemoglobin Sodium Potassium Chloride Carbon Dioxide BUN 30 H Creatinine Glucose 134 H POC Glucose 129 H 134 H Lactic Acid Calcium Phosphorus Magnesium AST ALT Lactate Dehydrogenase Total Bilirubin CK-MB (CK-2) C-Reactive Protein NT-Pro-B Natriuret Pep Total Protein Albumin Arterial Blood Glucose Urine WBC (Auto) Urine Creatinine 01/25/20 01/25/20 01/26/20 17:13 21:02 00:59 WBC RBC Hgb Hct MCHC RDW MCV MCH Lymph % (Auto) [place] % (Auto) [place] # Eos # Lymph # (Auto) [place] # (Auto) Eos # (Auto) Seg Neutrophils % Seg Neuts % (Manual) Baso # (Auto) Lymphocytes % (Manual) Monocytes % (Manual) Eosinophils % (Manual) Basophils % (Manual) Seg Neutrophils # Seg Neutrophils # Man Lymphocytes # (Manual) Monocytes # (Manual) Eosinophils # (Manual) Nucleated RBC % Basophils # (Manual) PT INR APTT Heparin Anti-Xa Level ABG pH POC ABG pO2 ABG pO2 57.5 L ABG HCO3 31.7 H ABG O2 Saturation 90.3 L ABG Base Excess 6.6 H POC ABG pCO2 ABG Hemoglobin 13.0 L ABG Oxyhemoglobin ABG Glucose Oxyhemoglobin 87.5 L Sodium Potassium Chloride Carbon Dioxide BUN Creatinine Glucose POC Glucose 124 H 196 H Lactic Acid Calcium Phosphorus Magnesium AST ALT Lactate Dehydrogenase Total Bilirubin CK-MB (CK-2) C-Reactive Protein NT-Pro-B Natriuret Pep Total Protein Albumin Arterial Blood Glucose Urine WBC (Auto) Urine Creatinine 01/26/20 01/26/20 01/26/20 03:20 05:46 12:46 WBC RBC Hgb 9.2 L Hct 29.4 L MCHC RDW MCV MCH Lymph % (Auto) [place] % (Auto) [place] # Eos # Lymph # (Auto) [place] # (Auto) Eos # (Auto) Seg Neutrophils % Seg Neuts % (Manual) Baso # (Auto) Lymphocytes % (Manual) Monocytes % (Manual) Eosinophils % (Manual) Basophils % (Manual) Seg Neutrophils # Seg Neutrophils # Man Lymphocytes # (Manual) Monocytes # (Manual) Eosinophils # (Manual) Nucleated RBC % Basophils # (Manual) PT INR APTT Heparin Anti-Xa Level ABG pH POC ABG pO2 ABG pO2 ABG HCO3 ABG O2 Saturation ABG Base Excess POC ABG pCO2 ABG Hemoglobin ABG Oxyhemoglobin ABG Glucose Oxyhemoglobin Sodium Potassium Chloride Carbon Dioxide BUN Creatinine Glucose POC Glucose 141 H 122 H Lactic Acid Calcium Phosphorus Magnesium AST ALT Lactate Dehydrogenase Total Bilirubin CK-MB (CK-2) C-Reactive Protein NT-Pro-B Natriuret Pep Total Protein Albumin Arterial Blood Glucose Urine WBC (Auto) Urine Creatinine 01/26/20 01/26/20 01/27/20 18:03 23:55 04:47 WBC RBC Hgb Hct MCHC RDW MCV MCH Lymph % (Auto) [place] % (Auto) [place] # Eos # Lymph # (Auto) [place] # (Auto) Eos # (Auto) Seg Neutrophils % Seg Neuts % (Manual) Baso # (Auto) Lymphocytes % (Manual) Monocytes % (Manual) Eosinophils % (Manual) Basophils % (Manual) Seg Neutrophils # Seg Neutrophils # Man Lymphocytes # (Manual) Monocytes # (Manual) Eosinophils # (Manual) Nucleated RBC % Basophils # (Manual) PT INR APTT Heparin Anti-Xa Level ABG pH POC ABG pO2 ABG pO2 ABG HCO3 ABG O2 Saturation ABG Base Excess POC ABG pCO2 ABG Hemoglobin ABG Oxyhemoglobin ABG Glucose Oxyhemoglobin Sodium Potassium Chloride Carbon Dioxide BUN 30 H Creatinine 0.7 L Glucose 135 H POC Glucose 142 H 159 H Lactic Acid Calcium Phosphorus Magnesium AST ALT Lactate Dehydrogenase Total Bilirubin CK-MB (CK-2) C-Reactive Protein NT-Pro-B Natriuret Pep Total Protein Albumin Arterial Blood Glucose Urine WBC (Auto) Urine Creatinine 01/27/20 01/27/20 01/27/20 05:43 12:06 17:16 WBC RBC Hgb Hct MCHC RDW MCV MCH Lymph % (Auto) [place] % (Auto) [place] # Eos # Lymph # (Auto) [place] # (Auto) Eos # (Auto) Seg Neutrophils % Seg Neuts % (Manual) Baso # (Auto) Lymphocytes % (Manual) Monocytes % (Manual) Eosinophils % (Manual) Basophils % (Manual) Seg Neutrophils # Seg Neutrophils # Man Lymphocytes # (Manual) Monocytes # (Manual) Eosinophils # (Manual) Nucleated RBC % Basophils # (Manual) PT INR APTT Heparin Anti-Xa Level ABG pH POC ABG pO2 ABG pO2 ABG HCO3 ABG O2 Saturation ABG Base Excess POC ABG pCO2 ABG Hemoglobin ABG Oxyhemoglobin ABG Glucose Oxyhemoglobin Sodium Potassium Chloride Carbon Dioxide BUN Creatinine Glucose POC Glucose 143 H 142 H 128 H Lactic Acid Calcium Phosphorus Magnesium AST ALT Lactate Dehydrogenase Total Bilirubin CK-MB (CK-2) C-Reactive Protein NT-Pro-B Natriuret Pep Total Protein Albumin Arterial Blood Glucose Urine WBC (Auto) Urine Creatinine 01/27/20 01/28/20 01/28/20 23:55 04:37 05:55 WBC RBC Hgb 9.4 L Hct 29.9 L MCHC RDW MCV MCH Lymph % (Auto) [place] % (Auto) [place] # Eos # Lymph # (Auto) [place] # (Auto) Eos # (Auto) Seg Neutrophils % Seg Neuts % (Manual) Baso # (Auto) Lymphocytes % (Manual) Monocytes % (Manual) Eosinophils % (Manual) Basophils % (Manual) Seg Neutrophils # Seg Neutrophils # Man Lymphocytes # (Manual) Monocytes # (Manual) Eosinophils # (Manual) Nucleated RBC % Basophils # (Manual) PT INR APTT Heparin Anti-Xa Level ABG pH POC ABG pO2 ABG pO2 ABG HCO3 ABG O2 Saturation ABG Base Excess POC ABG pCO2 ABG Hemoglobin ABG Oxyhemoglobin ABG Glucose Oxyhemoglobin Sodium Potassium Chloride Carbon Dioxide BUN Creatinine Glucose POC Glucose 166 H 169 H Lactic Acid Calcium Phosphorus Magnesium AST ALT Lactate Dehydrogenase Total Bilirubin CK-MB (CK-2) C-Reactive Protein NT-Pro-B Natriuret Pep Total Protein Albumin Arterial Blood Glucose Urine WBC (Auto) Urine Creatinine 01/28/20 01/28/20 01/28/20 11:58 17:26 23:46 WBC RBC Hgb Hct MCHC RDW MCV MCH Lymph % (Auto) [place] % (Auto) [place] # Eos # Lymph # (Auto) [place] # (Auto) Eos # (Auto) Seg Neutrophils % Seg Neuts % (Manual) Baso # (Auto) Lymphocytes % (Manual) Monocytes % (Manual) Eosinophils % (Manual) Basophils % (Manual) Seg Neutrophils # Seg Neutrophils # Man Lymphocytes # (Manual) Monocytes # (Manual) Eosinophils # (Manual) Nucleated RBC % Basophils # (Manual) PT INR APTT Heparin Anti-Xa Level ABG pH POC ABG pO2 ABG pO2 ABG HCO3 ABG O2 Saturation ABG Base Excess POC ABG pCO2 ABG Hemoglobin ABG Oxyhemoglobin ABG Glucose Oxyhemoglobin Sodium Potassium Chloride Carbon Dioxide BUN Creatinine Glucose POC Glucose 130 H 126 H 150 H Lactic Acid Calcium Phosphorus Magnesium AST ALT Lactate Dehydrogenase Total Bilirubin CK-MB (CK-2) C-Reactive Protein NT-Pro-B Natriuret Pep Total Protein Albumin Arterial Blood Glucose Urine WBC (Auto) Urine Creatinine 01/29/20 01/29/20 01/29/20 04:55 06:00 12:28 WBC RBC Hgb Hct MCHC RDW MCV MCH Lymph % (Auto) [place] % (Auto) [place] # Eos # Lymph # (Auto) [place] # (Auto) Eos # (Auto) Seg Neutrophils % Seg Neuts % (Manual) Baso # (Auto) Lymphocytes % (Manual) Monocytes % (Manual) Eosinophils % (Manual) Basophils % (Manual) Seg Neutrophils # Seg Neutrophils # Man Lymphocytes # (Manual) Monocytes # (Manual) Eosinophils # (Manual) Nucleated RBC % Basophils # (Manual) PT INR APTT Heparin Anti-Xa Level ABG pH POC ABG pO2 ABG pO2 ABG HCO3 ABG O2 Saturation ABG Base Excess POC ABG pCO2 ABG Hemoglobin ABG Oxyhemoglobin ABG Glucose Oxyhemoglobin Sodium Potassium Chloride Carbon Dioxide 34 H BUN Creatinine 0.6 L Glucose 152 H POC Glucose 157 H 156 H Lactic Acid Calcium Phosphorus Magnesium AST ALT Lactate Dehydrogenase Total Bilirubin CK-MB (CK-2) C-Reactive Protein NT-Pro-B Natriuret Pep Total Protein Albumin Arterial Blood Glucose Urine WBC (Auto) Urine Creatinine 01/29/20 01/30/20 01/30/20 19:06 00:29 05:39 WBC RBC Hgb Hct MCHC RDW MCV MCH Lymph % (Auto) [place] % (Auto) [place] # Eos # Lymph # (Auto) [place] # (Auto) Eos # (Auto) Seg Neutrophils % Seg Neuts % (Manual) Baso # (Auto) Lymphocytes % (Manual) Monocytes % (Manual) Eosinophils % (Manual) Basophils % (Manual) Seg Neutrophils # Seg Neutrophils # Man Lymphocytes # (Manual) Monocytes # (Manual) Eosinophils # (Manual) Nucleated RBC % Basophils # (Manual) PT INR APTT Heparin Anti-Xa Level ABG pH POC ABG pO2 ABG pO2 ABG HCO3 ABG O2 Saturation ABG Base Excess POC ABG pCO2 ABG Hemoglobin ABG Oxyhemoglobin ABG Glucose Oxyhemoglobin Sodium Potassium Chloride Carbon Dioxide BUN Creatinine Glucose POC Glucose 152 H 132 H 159 H Lactic Acid Calcium Phosphorus Magnesium AST ALT Lactate Dehydrogenase Total Bilirubin CK-MB (CK-2) C-Reactive Protein NT-Pro-B Natriuret Pep Total Protein Albumin Arterial Blood Glucose Urine WBC (Auto) Urine Creatinine 01/30/20 01/30/20 01/30/20 12:27 17:42 23:28 WBC RBC Hgb Hct MCHC RDW MCV MCH Lymph % (Auto) [place] % (Auto) [place] # Eos # Lymph # (Auto) [place] # (Auto) Eos # (Auto) Seg Neutrophils % Seg Neuts % (Manual) Baso # (Auto) Lymphocytes % (Manual) Monocytes % (Manual) Eosinophils % (Manual) Basophils % (Manual) Seg Neutrophils # Seg Neutrophils # Man Lymphocytes # (Manual) Monocytes # (Manual) Eosinophils # (Manual) Nucleated RBC % Basophils # (Manual) PT INR APTT Heparin Anti-Xa Level ABG pH POC ABG pO2 ABG pO2 ABG HCO3 ABG O2 Saturation ABG Base Excess POC ABG pCO2 ABG Hemoglobin ABG Oxyhemoglobin ABG Glucose Oxyhemoglobin Sodium Potassium Chloride Carbon Dioxide BUN Creatinine Glucose POC Glucose 151 H 144 H 164 H Lactic Acid Calcium Phosphorus Magnesium AST ALT Lactate Dehydrogenase Total Bilirubin CK-MB (CK-2) C-Reactive Protein NT-Pro-B Natriuret Pep Total Protein Albumin Arterial Blood Glucose Urine WBC (Auto) Urine Creatinine 01/31/20 01/31/20 01/31/20 05:51 11:51 18:06 WBC RBC Hgb Hct MCHC RDW MCV MCH Lymph % (Auto) [place] % (Auto) [place] # Eos # Lymph # (Auto) [place] # (Auto) Eos # (Auto) Seg Neutrophils % Seg Neuts % (Manual) Baso # (Auto) Lymphocytes % (Manual) Monocytes % (Manual) Eosinophils % (Manual) Basophils % (Manual) Seg Neutrophils # Seg Neutrophils # Man Lymphocytes # (Manual) Monocytes # (Manual) Eosinophils # (Manual) Nucleated RBC % Basophils # (Manual) PT INR APTT Heparin Anti-Xa Level ABG pH POC ABG pO2 ABG pO2 ABG HCO3 ABG O2 Saturation ABG Base Excess POC ABG pCO2 ABG Hemoglobin ABG Oxyhemoglobin ABG Glucose Oxyhemoglobin Sodium Potassium Chloride Carbon Dioxide BUN Creatinine Glucose POC Glucose 131 H 167 H 210 H Lactic Acid Calcium Phosphorus Magnesium AST ALT Lactate Dehydrogenase Total Bilirubin CK-MB (CK-2) C-Reactive Protein NT-Pro-B Natriuret Pep Total Protein Albumin Arterial Blood Glucose Urine WBC (Auto) Urine Creatinine 01/31/20 01/31/20 02/01/20 19:24 Unknown 00:34 WBC RBC Hgb Hct MCHC RDW MCV MCH Lymph % (Auto) [place] % (Auto) [place] # Eos # Lymph # (Auto) [place] # (Auto) Eos # (Auto) Seg Neutrophils % Seg Neuts % (Manual) Baso # (Auto) Lymphocytes % (Manual) Monocytes % (Manual) Eosinophils % (Manual) Basophils % (Manual) Seg Neutrophils # Seg Neutrophils # Man Lymphocytes # (Manual) Monocytes # (Manual) Eosinophils # (Manual) Nucleated RBC % Basophils # (Manual) PT INR APTT Heparin Anti-Xa Level ABG pH POC ABG pO2 ABG pO2 ABG HCO3 ABG O2 Saturation ABG Base Excess POC ABG pCO2 ABG Hemoglobin ABG Oxyhemoglobin ABG Glucose Oxyhemoglobin Sodium Potassium Chloride 95.3 L Carbon Dioxide 33 H BUN 36 H Creatinine Glucose 187 H POC Glucose 116 H Lactic Acid Calcium Phosphorus Magnesium AST ALT Lactate Dehydrogenase Total Bilirubin CK-MB (CK-2) C-Reactive Protein NT-Pro-B Natriuret Pep Total Protein Albumin Arterial Blood Glucose Urine WBC (Auto) Urine Creatinine 57.4 H 02/01/20 02/01/20 02/01/20 05:24 10:40 12:29 WBC RBC Hgb Hct MCHC RDW MCV MCH Lymph % (Auto) [place] % (Auto) [place] # Eos # Lymph # (Auto) [place] # (Auto) Eos # (Auto) Seg Neutrophils % Seg Neuts % (Manual) Baso # (Auto) Lymphocytes % (Manual) Monocytes % (Manual) Eosinophils % (Manual) Basophils % (Manual) Seg Neutrophils # Seg Neutrophils # Man Lymphocytes # (Manual) Monocytes # (Manual) Eosinophils # (Manual) Nucleated RBC % Basophils # (Manual) PT INR APTT Heparin Anti-Xa Level ABG pH POC ABG pO2 ABG pO2 ABG HCO3 ABG O2 Saturation ABG Base Excess POC ABG pCO2 ABG Hemoglobin ABG Oxyhemoglobin ABG Glucose Oxyhemoglobin Sodium Potassium Chloride Carbon Dioxide BUN Creatinine Glucose POC Glucose 142 H 165 H 151 H Lactic Acid Calcium Phosphorus Magnesium AST ALT Lactate Dehydrogenase Total Bilirubin CK-MB (CK-2) C-Reactive Protein NT-Pro-B Natriuret Pep Total Protein Albumin Arterial Blood Glucose Urine WBC (Auto) Urine Creatinine 02/01/20 02/01/20 02/02/20 17:16 23:23 06:36 WBC RBC Hgb Hct MCHC RDW MCV MCH Lymph % (Auto) [place] % (Auto) [place] # Eos # Lymph # (Auto) [place] # (Auto) Eos # (Auto) Seg Neutrophils % Seg Neuts % (Manual) Baso # (Auto) Lymphocytes % (Manual) Monocytes % (Manual) Eosinophils % (Manual) Basophils % (Manual) Seg Neutrophils # Seg Neutrophils # Man Lymphocytes # (Manual) Monocytes # (Manual) Eosinophils # (Manual) Nucleated RBC % Basophils # (Manual) PT INR APTT Heparin Anti-Xa Level ABG pH POC ABG pO2 ABG pO2 ABG HCO3 ABG O2 Saturation ABG Base Excess POC ABG pCO2 ABG Hemoglobin ABG Oxyhemoglobin ABG Glucose Oxyhemoglobin Sodium Potassium Chloride Carbon Dioxide BUN Creatinine Glucose POC Glucose 137 H 145 H 181 H Lactic Acid Calcium Phosphorus Magnesium AST ALT Lactate Dehydrogenase Total Bilirubin CK-MB (CK-2) C-Reactive Protein NT-Pro-B Natriuret Pep Total Protein Albumin Arterial Blood Glucose Urine WBC (Auto) Urine Creatinine 02/02/20 02/02/20 02/02/20 10:01 12:05 17:54 WBC RBC Hgb Hct MCHC RDW MCV MCH Lymph % (Auto) [place] % (Auto) [place] # Eos # Lymph # (Auto) [place] # (Auto) Eos # (Auto) Seg Neutrophils % Seg Neuts % (Manual) Baso # (Auto) Lymphocytes % (Manual) Monocytes % (Manual) Eosinophils % (Manual) Basophils % (Manual) Seg Neutrophils # Seg Neutrophils # Man Lymphocytes # (Manual) Monocytes # (Manual) Eosinophils # (Manual) Nucleated RBC % Basophils # (Manual) PT INR APTT Heparin Anti-Xa Level ABG pH POC ABG pO2 ABG pO2 ABG HCO3 ABG O2 Saturation ABG Base Excess POC ABG pCO2 ABG Hemoglobin ABG Oxyhemoglobin ABG Glucose Oxyhemoglobin Sodium Potassium Chloride 95.3 L Carbon Dioxide BUN 44 H Creatinine Glucose 234 H POC Glucose 184 H 127 H Lactic Acid Calcium Phosphorus Magnesium AST 363 H ALT 457 H Lactate Dehydrogenase Total Bilirubin CK-MB (CK-2) C-Reactive Protein NT-Pro-B Natriuret Pep Total Protein Albumin 3.0 L Arterial Blood Glucose Urine WBC (Auto) Urine Creatinine 02/02/20 02/03/20 02/03/20 23:47 05:32 07:04 WBC 13.0 H RBC Hgb 9.5 L Hct 30.8 L MCHC 31 L RDW 19.6 H MCV 81 L MCH 25 L Lymph % (Auto) [place] % (Auto) 9.4 H [place] # Eos # Lymph # (Auto) [place] # (Auto) 1.2 H Eos # (Auto) Seg Neutrophils % 72.3 H Seg Neuts % (Manual) Baso # (Auto) Lymphocytes % (Manual) Monocytes % (Manual) Eosinophils % (Manual) Basophils % (Manual) Seg Neutrophils # 9.4 H Seg Neutrophils # Man Lymphocytes # (Manual) Monocytes # (Manual) Eosinophils # (Manual) Nucleated RBC % Basophils # (Manual) PT INR APTT Heparin Anti-Xa Level ABG pH POC ABG pO2 ABG pO2 ABG HCO3 ABG O2 Saturation ABG Base Excess POC ABG pCO2 ABG Hemoglobin ABG Oxyhemoglobin ABG Glucose Oxyhemoglobin Sodium Potassium Chloride Carbon Dioxide BUN Creatinine Glucose POC Glucose 124 H 129 H Lactic Acid Calcium Phosphorus Magnesium AST ALT Lactate Dehydrogenase Total Bilirubin CK-MB (CK-2) C-Reactive Protein NT-Pro-B Natriuret Pep Total Protein Albumin Arterial Blood Glucose Urine WBC (Auto) Urine Creatinine 02/03/20 02/03/20 02/03/20 07:04 11:32 12:49 WBC RBC Hgb Hct MCHC RDW MCV MCH Lymph % (Auto) [place] % (Auto) [place] # Eos # Lymph # (Auto) [place] # (Auto) Eos # (Auto) Seg Neutrophils % Seg Neuts % (Manual) Baso # (Auto) Lymphocytes % (Manual) Monocytes % (Manual) Eosinophils % (Manual) Basophils % (Manual) Seg Neutrophils # Seg Neutrophils # Man Lymphocytes # (Manual) Monocytes # (Manual) Eosinophils # (Manual) Nucleated RBC % Basophils # (Manual) PT INR APTT Heparin Anti-Xa Level ABG pH POC ABG pO2 ABG pO2 ABG HCO3 ABG O2 Saturation ABG Base Excess POC ABG pCO2 ABG Hemoglobin ABG Oxyhemoglobin ABG Glucose Oxyhemoglobin Sodium Potassium Chloride 97.9 L Carbon Dioxide 33 H BUN 39 H Creatinine Glucose 119 H POC Glucose 138 H Lactic Acid Calcium Phosphorus Magnesium 2.60 H AST ALT Lactate Dehydrogenase Total Bilirubin CK-MB (CK-2) C-Reactive Protein NT-Pro-B Natriuret Pep Total Protein Albumin Arterial Blood Glucose Urine WBC (Auto) Urine Creatinine 02/03/20 02/04/20 02/04/20 18:28 16:24 16:24 WBC RBC 3.38 L Hgb 8.6 L Hct 26.9 L MCHC RDW 19.5 H MCV 80 L MCH 26 L Lymph % (Auto) [place] % (Auto) [place] # Eos # Lymph # (Auto) [place] # (Auto) Eos # (Auto) Seg Neutrophils % Seg Neuts % (Manual) Baso # (Auto) Lymphocytes % (Manual) Monocytes % (Manual) Eosinophils % (Manual) Basophils % (Manual) Seg Neutrophils # Seg Neutrophils # Man Lymphocytes # (Manual) Monocytes # (Manual) Eosinophils # (Manual) Nucleated RBC % Basophils # (Manual) PT INR APTT Heparin Anti-Xa Level ABG pH POC ABG pO2 ABG pO2 ABG HCO3 ABG O2 Saturation ABG Base Excess POC ABG pCO2 ABG Hemoglobin ABG Oxyhemoglobin ABG Glucose Oxyhemoglobin Sodium Potassium 3.4 L Chloride Carbon Dioxide 31 H BUN 37 H Creatinine Glucose 70 L POC Glucose 118 H Lactic Acid Calcium Phosphorus Magnesium AST 169 H ALT 394 H Lactate Dehydrogenase Total Bilirubin 1.50 H CK-MB (CK-2) C-Reactive Protein NT-Pro-B Natriuret Pep Total Protein Albumin 2.9 L Arterial Blood Glucose Urine WBC (Auto) Urine Creatinine 02/05/20 02/05/20 02/05/20 00:41 06:37 17:14 WBC RBC Hgb Hct MCHC RDW MCV MCH Lymph % (Auto) [place] % (Auto) [place] # Eos # Lymph # (Auto) [place] # (Auto) Eos # (Auto) Seg Neutrophils % Seg Neuts % (Manual) Baso # (Auto) Lymphocytes % (Manual) Monocytes % (Manual) Eosinophils % (Manual) Basophils % (Manual) Seg Neutrophils # Seg Neutrophils # Man Lymphocytes # (Manual) Monocytes # (Manual) Eosinophils # (Manual) Nucleated RBC % Basophils # (Manual) PT INR APTT Heparin Anti-Xa Level ABG pH POC ABG pO2 ABG pO2 ABG HCO3 ABG O2 Saturation ABG Base Excess POC ABG pCO2 ABG Hemoglobin ABG Oxyhemoglobin ABG Glucose Oxyhemoglobin Sodium Potassium 3.1 L Chloride Carbon Dioxide 35 H BUN 32 H Creatinine 0.7 L Glucose POC Glucose 69 L 127 H Lactic Acid Calcium Phosphorus Magnesium AST 134 H ALT 352 H Lactate Dehydrogenase Total Bilirubin 1.60 H CK-MB (CK-2) C-Reactive Protein NT-Pro-B Natriuret Pep Total Protein Albumin 2.9 L Arterial Blood Glucose Urine WBC (Auto) Urine Creatinine 02/05/20 02/06/20 02/06/20 23:43 05:32 08:01 WBC RBC Hgb Hct MCHC RDW MCV MCH Lymph % (Auto) [place] % (Auto) [place] # Eos # Lymph # (Auto) [place] # (Auto) Eos # (Auto) Seg Neutrophils % Seg Neuts % (Manual) Baso # (Auto) Lymphocytes % (Manual) Monocytes % (Manual) Eosinophils % (Manual) Basophils % (Manual) Seg Neutrophils # Seg Neutrophils # Man Lymphocytes # (Manual) Monocytes # (Manual) Eosinophils # (Manual) Nucleated RBC % Basophils # (Manual) PT INR APTT Heparin Anti-Xa Level ABG pH POC ABG pO2 ABG pO2 ABG HCO3 ABG O2 Saturation ABG Base Excess POC ABG pCO2 ABG Hemoglobin ABG Oxyhemoglobin ABG Glucose Oxyhemoglobin Sodium Potassium Chloride Carbon Dioxide BUN 40 H Creatinine Glucose 132 H POC Glucose 129 H 131 H Lactic Acid Calcium Phosphorus Magnesium AST ALT Lactate Dehydrogenase Total Bilirubin CK-MB (CK-2) C-Reactive Protein NT-Pro-B Natriuret Pep Total Protein Albumin Arterial Blood Glucose Urine WBC (Auto) Urine Creatinine 02/06/20 11:51 WBC RBC Hgb Hct MCHC RDW MCV MCH Lymph % (Auto) [place] % (Auto) [place] # Eos # Lymph # (Auto) [place] # (Auto) Eos # (Auto) Seg Neutrophils % Seg Neuts % (Manual) Baso # (Auto) Lymphocytes % (Manual) Monocytes % (Manual) Eosinophils % (Manual) Basophils % (Manual) Seg Neutrophils # Seg Neutrophils # Man Lymphocytes # (Manual) Monocytes # (Manual) Eosinophils # (Manual) Nucleated RBC % Basophils # (Manual) PT INR APTT Heparin Anti-Xa Level ABG pH POC ABG pO2 ABG pO2 ABG HCO3 ABG O2 Saturation ABG Base Excess POC ABG pCO2 ABG Hemoglobin ABG Oxyhemoglobin ABG Glucose Oxyhemoglobin Sodium Potassium Chloride Carbon Dioxide BUN Creatinine Glucose POC Glucose 167 H Lactic Acid Calcium Phosphorus Magnesium AST ALT Lactate Dehydrogenase Total Bilirubin CK-MB (CK-2) C-Reactive Protein NT-Pro-B Natriuret Pep Total Protein Albumin Arterial Blood Glucose Urine WBC (Auto) Urine Creatinine Chest x-ray: other (none today) Allied health notes reviewed: nursing
[2020-02-06 17:06] LABS: Albumin 2.9 g/dL (3.9-5); Bilirubin,Direct 1.2 mg/dL (0-0.2)
[2020-02-06] MEDS: POLYETHYLENE GLYCOL 3350 17 GM POWDER PO SCH (21:23)
[2020-02-06] MEDS: TAMSULOSIN 0.4 MG CAP PO SCH (21:24)
[2020-02-07] MEDS: METOPROLOL TARTRATE 50 MG TAB PO SCH ×3 (00:09→13:07)
[2020-02-07] MEDS: ONDANSETRON 4 MG/2 ML INJ IV PRN (00:10)
[2020-02-07] MEDS: INSULIN REGULAR, HUMAN 100 UNIT/ML 3ML VIAL SUB-Q SCH ×3 (00:10→13:07)
[2020-02-07] MEDS: METOCLOPRAMIDE 10 MG/2 ML INJ IV SCH ×4 (05:53→23:41)
[2020-02-07 06:13] LABS: Hematocrit 29.7 % (35.5-45.6); Hemoglobin 9.2 gm/dl (11.8-15.2); Mean Corpuscular HGB Conc 31 % (32-34); Mean Corpuscular Volume 80 fl (84-94); Platelet Count 230 K/mm3 (140-440); Red Blood Count 3.73 M/mm3 (3.65-5.03)
[2020-02-07 06:21] LABS: Red Cell Distribution Width 20.2 % (13.2-15.2)
[2020-02-07 06:22] LABS: BUN/Creatinine Ratio 35; Blood Urea Nitrogen 39 mg/dL (9-20); Calcium 9.3 mg/dL (8.4-10.2); Hemolysis Index 5
[2020-02-07] MEDS: APIXABAN 5 MG TAB PO SCH ×2 (09:51→22:00)
[2020-02-07] MEDS: LANSOPRAZOLE 30 MG SOLUTAB FEEDTUBE SCH (09:51)
[2020-02-07] MEDS: GLYCOPYRROLATE 2 MG TAB PO SCH ×3 (09:51→22:00)
[2020-02-07] MEDS: QUEtiapine 100 MG TAB PO SCH ×2 (09:51→22:00)
[2020-02-07] MEDS: MIDODRINE 5 MG TAB PO SCH ×3 (09:51→16:14)
[2020-02-07] MEDS: CLOPIDOGREL 75 MG TAB PO SCH (09:51)
--- NOTE | 2020-02-07 10:15 | Progress Note ---
Assessment and Plan - Patient Problems (1) Acute respiratory failure Current Visit: Yes Status: Acute (2) Bilateral pneumonia Current Visit: Yes Status: Acute (3) COPD exacerbation Current Visit: No Status: Acute (4) Hypertension Current Visit: No Status: Acute Qualifiers: Hypertension type: essential hypertension Qualified Code(s): I10 - Essential (primary) hypertension (5) Cardiomyopathy Current Visit: Yes Status: Acute (6) Paroxysmal atrial fibrillation Current Visit: Yes Status: Acute Subjective Date of service: 02/07/20 Principal diagnosis: Ac hypoxemic resp failure; Pneumonia; PUI COVID-19; CHF; COPD; HTN Interval history: alert,,,TRACH' IN PLACE,,,NOT SOB,,,,NO PAIN Objective Vital Signs Temp Pulse Resp Resp Resp BP Pulse Ox 02/07/20 09:37 97 H 126/90 100 02/07/20 08:00 86 16 92/67 100 02/07/20 07:00 90 20 95/69 100 02/07/20 06:00 90 18 96/64 100 02/07/20 05:00 90 20 96/63 100 02/07/20 04:42 92 H 105/73 100 02/07/20 04:00 98.0 F 90 20 18 24 98/73 100 02/07/20 03:41 02/07/20 03:00 89 19 96/70 100 02/07/20 02:00 89 20 95/69 100 02/07/20 01:00 88 20 97/68 100 02/07/20 00:15 90 101/69 100 02/07/20 00:09 91 H 96/64 02/07/20 00:00 98.6 F 89 13 101/69 100 02/06/20 23:14 84 20 96/71 100 02/06/20 23:00 84 22 90/67 100 02/06/20 22:00 85 16 91/67 100 02/06/20 21:00 87 14 95/68 100 02/06/20 20:00 98.1 F 90 16 18 24 101/71 100 02/06/20 19:58 90 101/71 100 02/06/20 19:00 87 19 98/70 100 02/06/20 18:00 91 H 15 95/47 99 02/06/20 17:00 85 23 90/59 100 02/06/20 16:00 98.1 F 84 20 86/59 100 02/06/20 15:59 02/06/20 15:56 86 19 91/61 100 02/06/20 15:00 84 21 84/62 100 02/06/20 14:00 86 19 91/61 100 02/06/20 13:12 95 H 87/58 02/06/20 13:00 84 22 87/58 100 02/06/20 12:00 98.3 F 85 23 90/59 100 02/06/20 11:00 89 25 H 97/65 100 Pulse Ox 02/07/20 09:37 02/07/20 08:00 02/07/20 07:00 02/07/20 06:00 02/07/20 05:00 02/07/20 04:42 02/07/20 04:00 02/07/20 03:41 100 02/07/20 03:00 02/07/20 02:00 02/07/20 01:00 02/07/20 00:15 02/07/20 00:09 02/07/20 00:00 02/06/20 23:14 02/06/20 23:00 02/06/20 22:00 02/06/20 21:00 02/06/20 20:00 02/06/20 19:58 02/06/20 19:00 02/06/20 18:00 02/06/20 17:00 02/06/20 16:00 02/06/20 15:59 98 02/06/20 15:56 02/06/20 15:00 02/06/20 14:00 02/06/20 13:12 02/06/20 13:00 02/06/20 12:00 02/06/20 11:00 - Physical Examination General: No Apparent Distress (ALERT), Other (s/p trach) HEENT: Positive: PERRL Neck: Positive: neck supple Cardiac: Positive: Reg Rate and Rhythm Lungs: Positive: clear to auscultation, Decreased Breath Sounds Neuro: Positive: Weakness Abdomen: Positive: Soft Skin: Positive: Clear Extremities: Absent: edema (NO CCE) - Labs and Meds Cardiac Enzymes 02/06/20 Range/Units 16:28 AST 824 H (5-40) units/L CBC 11/15/20 Range/Units 04:57 WBC 7.2 (4.5-11.0) K/mm3 RBC 3.73 (3.65-5.03) M/mm3 Hgb 9.2 L (11.8-15.2) gm/dl Hct 29.7 L (35.5-45.6) % Plt Count 230 (140-440) K/mm3 Comprehensive Metabolic Panel 02/06/20 02/07/20 Range/Units 16:28 04:57 Sodium 145 (137-145) mmol/L Potassium 3.4 L D (3.6-5.0) mmol/L Chloride 103.0 (98-107) mmol/L Carbon Dioxide 32 H (22-30) mmol/L BUN 39 H (9-20) mg/dL Creatinine 1.1 (0.8-1.3) mg/dL Glucose 106 H (75-100) mg/dL Calcium 9.3 (8.4-10.2) mg/dL Direct Bilirubin 1.2 H (0-0.2) mg/dL Indirect Bilirubin 0.5 mg/dL AST 824 H (5-40) units/L ALT 948 H (7-56) units/L Alkaline Phosphatase 102 (35-129) units/L Total Protein 6.7 (6.3-8.2) g/dL Albumin 2.9 L (3.9-5) g/dL - Allied health notes Allied health notes reviewed: nursing
--- NOTE | 2020-02-07 14:28 | Progress Note ---
Assessment and Plan Assessment and plan: Patient is a 64-year-old male with known history of hypertension, COPD, history of coronary artery disease, CHF with ejection fraction of 20 to 25% in August 2018 presenting to the emergency room via EMS complaining of shortness of breath. Patient was found to be hypoxic and in respiratory distress. Patient was placed on CPAP in route to the hospital. Patient remained hypoxic on CPAP BiPAP ,subsequently was intubated. Work-up in the emergency room including chest x-ray reveals bilateral pneumonia. He had an elevated white count of 14 and also had an elevated BNP. sputum cultures positive for Pseudomonas, ID treated with cefepime and Vanco. His hospital course became complicated with acute PE, DVT, paroxysmal atrial fib - placed on chronic anticoagulation. Patient was difficult to wean off, status post trach and PEG, remains on mechanical ventilation with trach tube. He then developed partial small bowel obstruction valuated by general surgeon symptom improved with medical Mx, patient was briefly weaned off ventilatory support however, was in respiratory failure requiring full ventilatory support. Cardiac catheterization on 01/22/2020. No new issues overnight. -Ischemic cardiomyopathy Cardiology is following, status post cardiac catheterization on 01/22/2020; Coronary artery disease status post PCI and stent to the LAD Continue current cardiac medications --Acute on chronic hypoxemic respiratory failure; Patient has tracheostomy on vent Continue nebulizers, , trach care Wean off ventilator as tolerated Pulmonary critical following --Acute exacerbation of COPD; Patient is currently on ventilatory support Continue nebulizers --Left lower lobe PE; Continue Eliquis, ventilatory support --Acute right lower extremity DVT; Patient is on Eliquis --Bilateral multifocal pneumonia/community-acquired Completed antibiotics, improved --Severe sepsis/bilateral pneumonia: Completed antibiotics COVID-19 test; 11/24/2019; negative 11/26/2019; negative 12/29/2019: Negative --atrial fibrillation WITH RVR Now rate controlled, Stable on amiodarone and Eliquis --Acute on chronic combined systolic and diastolic congestive heart failure Ischemic cardiomyopathy left ventricular ejection fraction 40 to 45% --H/o CAD [[facility] 12/2018 in-stent restenosis] --Hypertensive emergency; present on admission Reasonable blood pressures, continue current antihypertensives As needed medications Most stents were patent. --Hypokalemia --History of alcohol abuse/alcohol withdrawal; Was on CIWA protocol, now stable --Oropharyngeal dysphagia; status post PEG placement Continue PEG feeds per protocol --History of partial small bowel obstruction; resolved Surgery evaluated. At present not a surgical candidate. --Obesity; BMI 34.7 Patient needs weight reduction when medically stable --Severe protein calorie malnutrition/hypoalbuminemia Nutrition supplements, dietitian following, PEG feeds --DVT prophylaxis;Eliquis --Full CODE STATUS 01/05; Pt stable. NGT output 650cc over 24 hours, bilious. No f/c, WBC within normal limits. cont NG suction and cont to hold TF 01/06: Abs series - mild improvement in small bowel distension in mid abdomen, normal gas/stool pattern in colon. NGT in duodenum. Continue to hold tube feeding, maintain NG tube with low intermittent suction. Patient's was updated by phone. Continue to provide supportive care and monitor clinically. 01/07: +BMs today and NGT/PEG output appears more gastric today. Plan to clamp NGT, if tolerates start TF from tomorrow. cont supportive care. 01/08; Gastric output decreased over last 24 hours. NGT has been clamped x 24 hours. plan to dc NGT and to start TTF via PEG - vital HF @10cc/hr 01/09: clinically stable, tolerating TF. monitor BMP, wean off from vent as tolerated clinically stable, on TF. wean off vent as tolerated 01/11: wean off from vent, cont to monitor, on TF 01/12: wean off from vent, cont to monitor, on TF. need placement - unfunded 01/13; remains on ventilatory support, unable to wean, DC planning possible LTAC, unfunded 01/14; patient of ventilatory support, T-piece tracheostomy on oxygen, LTAC placement per case management 01/16; tracheostomy, patient on full ventilatory support, wean off vent support as tolerated, pending LTAC placement, social financial issues 01/17; awaiting LTAC placement, insurance and financial issues 01/18; patient tracheostomy remains on ventilatory support 01/19; wean off ventilator as tolerated 01/20; remains on ventilatory support, patient complains of intermittent chest pain, cardiology recommend left heart catheterization tomorrow 01/22/2020. Patient for left heart catheterization per cardiology. Patient remains on AC mode ventilation rate 12, tidal volume 450, FiO2 30% and PEEP of 6. Continue tracheostomy care, airway management and secretion control. 01/23/2020. Cardiac catheterization completed yesterday revealed widely patent previous LAD stent with mild nonobstructive atherosclerosis of the right mid coronary artery and rest of the coronary system was without significant atherosclerosis. The left ventricle ejection fraction was mildly impaired at 40 to 45%. There was some hypokinesis of the basal inferior wall suggestive of previous or recent infarct. Continue GDMT for coronary artery disease including beta blockers, topical nitrates, statin and Plavix. Continue Eliquis for paroxysmal atrial fibrillation and PE. Continue diuresis with Lasix and follow electrolytes closely. Continue Robinul and scopolamine for secretion control and daily SBT per pulmonary. Also, continue bronchodilators and routine trach care/airway management. T-piece trials per pulmonary as tolerated. 01/24/2020. Recent cardiac catheterization has documented widely patent left anterior descending artery stent with minimal nonobstructive diffuse coronary artery disease in the rest of the coronary arteries. Evidence of ischemic cardiomyopathy with inferior wall hypokinesis. Continue with guideline directed medical therapy. Continue Robinul and scopolamine for secretion control and daily SBT per pulmonary. Continue bronchodilators and routine trach care/airway management. T-piece trials per pulmonary as tolerated. 01/25/2020. Continue with guideline directed medical therapy for systolic heart failure. Cardiac catheterization revealed evidence of ischemic cardiomyopathy with inferior wall hypokinesis (EF 40-45%). Patient currently on T-piece with oxygen 10 L/min FiO2 40%. Continue Robinul and scopolamine for secretion control. Continue bronchodilators and routine trach care/airway management. 01/26/2020;Continue with guideline directed medical therapy for systolic heart failure. Cardiac catheterization revealed evidence of ischemic cardiomyopathy with inferior wall hypokinesis (EF 40-45%). Patient currently on T-piece with oxygen 10 L/min FiO2 40%. Continue Robinul and scopolamine for secretion co ntrol. Continue bronchodilators and routine trach care/airway management. 01/27/2020Continue with guideline directed medical therapy for systolic heart failure. Cardiac catheterization revealed evidence of ischemic cardiomyopathy with inferior wall hypokinesis (EF 40-45%). Patient currently on T-piece with oxygen 10 L/min FiO2 40%. Continue Robinul and scopolamine for secretion control. Continue bronchodilators and routine trach care/airway management. 01/28/2020Continue with guideline directed medical therapy for systolic heart failure. Cardiac catheterization revealed evidence of ischemic cardiomyopathy with inferior wall hypokinesis (EF 40-45%). Patient currently on T-piece with oxygen 10 L/min FiO2 40%. Continue Robinul and scopolamine for secretion control. Continue bronchodilators and routine trach care/airway management. 01/29/2020 Continue with guideline directed medical therapy for systolic heart failure. Cardiac catheterization revealed evidence of ischemic cardiomyopathy with inferior wall hypokinesis (EF 40-45%). Patient currently on T-piece with oxygen 10 L/min FiO2 40%. Continue Robinul and scopolamine for secretion control. Continue bronchodilators and routine trach care/airway management. 01/30/2020 Continue with guideline directed medical therapy for systolic heart failure. Cardiac catheterization revealed evidence of ischemic cardiomyopathy with inferior wall hypokinesis (EF 40-45%). Patient currently on T-piece with oxygen 10 L/min FiO2 40%. Continue Robinul and scopolamine for secretion control. Continue bronchodilators and routine trach care/airway management. Patient has recurrent A. fib and currently on amiodarone, continue beta-hebert, and Eliquis. Patient is on IV diuresis January 31, 2020. Patient resting comfortably. Catheterization with inferior wall hypokinesis ejection fraction 40 to 45%. Was unable to wean tracheostomy at this time. Failed T-piece trial initially. Secretions improved with addition of Robinul. Pulmonology for trach care and airway management and continue to wean. Atrial fibrillation rate well controlled at 81. Currently on amiodarone beta- hebert and anticoagulation with Eliquis. CHF continue present diuresis. February 01, 2020. Patient resting comfortably. No new concerns at this time patient is anticipating discharge. Still failed T-piece trial at this time again. Patient secretions have improved with Robinul all. Atrial fibrillation heart rate 70s to 80s. Well-controlled current anticoagulation Congestive heart failure compensated at this particular time. February 02, 2020 Patient with episode of projectile vomiting. Most likely source partial bowel obstruction versus tube feeds. Will obtain chest x-ray to rule out aspiration. We will also hold tube feeds for 12 hours and obtain KUB. Area tracheostomy needs to be cleaned out as well. Patient obviously has failed T-piece trial again this time. Resume weaning parameters in a.m. Unlikely the secretions that have been fairly well controlled. Atrial fibrillation rate have remained well controlled. Continue amiodarone and beta-hebert. Metoprolol. Congestive heart failure ejection fraction 40 to 45% patient had inferior wall hypokinesis on catheterization otherwise stable. Continue present diuresis Acute respiratory failure unable to wean tracheostomy at this time. Failed T- piece trial again. Despite improve secretions. Continue bronchodilators and weaning parameters. Projectile vomiting. Rule out small bowel obstruction rule out ileus. Will hold tube feeds obtain imaging to rule out aspiration and bowel obstruction as well. Continue antibiotics. 02/02: Discussed with Nursing staff, patient with some mild change in mental status, not following commands like prior,WILL OBTAIN HEAD CT remains intubated on full mechanical ventilatory support. Today is my first day seeing the omar t, have reviewed all records so far. Patients still with elevated heart rate of Afib with RVR continue amiodarone and metoprolol. LVEF 40 to 45%. Continue Eliquis FOR THE Acute PE/DVT. Partial SBO vs ileus- KUB is negative. Will monitor, No further vomiting noted. If no improvement will repeat a chest xray to ensure no aspiration in the last 24 hrs. Will initiate sepsis work up, Obtain cultures, cxr- no change, only showing stable bilateral pulmonary opacities, lactate checked and wnl. Mild elevation in WBC. will recheck in am. IF Continued fever, will reconsult ID. 02/03: Mental status more improved, agree with Reglan will change to IV scheduled for two days, no new vomiting. Pseudomonas A in Sputum. 02/04: Clinical improving, amiodarone discontinued due to LFTs, continue Metoprolol. Discussed with GI, started on Golytely to clear impaction. Started on dialy Miralax. 02/05: Continue supportive care. Noted bowel movement, continue bowel regimen 02/06: Cardiology input noted beta-hebert increased for better suppression of atrial fibrillation. Continue to monitor, no other evidence of nausea vomiting noted. Discussed with respiratory therapist will be continued on weaning p rotocol with pressure support today. The high probability of a clinically significant, sudden or life threatening deterioration of the [Pulmonary, GI, cardiac] system(s) required my full and direct attention, intervention and personal management. The aggregate critical care time was [35] minutes. This time is in addition to time spent performing reported procedures but includes the following: [x] Data Review and interpretation [x] Patient assessment and monitoring of vital signs [x] Documentation [x] Medication orders and management History Interval history: Patient seen and examined, more awake today, following commands, Wants ICE. Hospitalist Physical - Physical exam Narrative exam: General appearance: Present: well-nourished, AWAKE, oriented - EENT Eyes: Present: PERRL, EOM intact. Absent: scleral icterus ENT: clear oral mucosa, dentition normal, NGT - Neck Neck: Present: supple, normal ROM, Trach - Respiratory Respiratory effort: normal, mechanical ventilation Respiratory: bilateral: rales - Cardiovascular Rhythm: regular Heart Sounds: Present: S1 & S2. Absent: gallop, systolic murmur, diastolic murmur, rub - Extremities Extremities: no ischemia, pulses intact, pulses symmetrical, No edema, Full ROM Peripheral Pulses: within normal limits - Abdominal General gastrointestinal: Present: PEG TUBE Site intact, soft, non-tender, non- distended, normal bowel sounds. Absent: mass - Integumentary Integumentary: Present: clear, warm, dry. Absent: rash - Musculoskeletal Musculoskeletal: strength equal bilaterally - Psychiatric Psychiatric: cooperative - Constitutional Vitals: Temp Pulse Resp BP Pulse Ox 98.3 F 89 17 101/69 100 02/07/20 12:00 02/07/20 13:07 02/07/20 12:28 02/07/20 13:07 02/07/20 12:28 General appearance: Present: mild distress, other (Diaphoretic) HEART Score - HEART Score Troponin: Troponin T < 0.010 ng/mL (0.00-0.029) 01/19/20 01:35 Results - Labs CBC & Chem 7: 02/07/20 04:57 02/07/20 04:57 Labs: Laboratory Last Values WBC 7.2 K/mm3 (4.5-11.0) 02/07/20 04:57 RBC 3.73 M/mm3 (3.65-5.03) 02/07/20 04:57 Hgb 9.2 gm/dl (11.8-15.2) L 02/07/20 04:57 Hct 29.7 % (35.5-45.6) L 02/07/20 04:57 MCV 80 fl (84-94) L 02/07/20 04:57 MCH 25 pg (28-32) L 02/07/20 04:57 MCHC 31 % (32-34) L 02/07/20 04:57 RDW 20.2 % (13.2-15.2) H 02/07/20 04:57 Plt Count 230 K/mm3 (140-440) 02/07/20 04:57 Lymph % (Auto) 17.5 % (13.4-35.0) 02/03/20 07:04 [place] % (Auto) 9.4 % (0.0-7.3) H 02/03/20 07:04 Eos % (Auto) 0.2 % (0.0-4.3) 02/03/20 07:04 Baso % (Auto) 0.6 % (0.0-1.8) 02/03/20 07:04 Lymph # (Auto) 2.3 K/mm3 (1.2-5.4) 02/03/20 07:04 [place] # (Auto) 1.2 K/mm3 (0.0-0.8) H 02/03/20 07:04 Eos # (Auto) 0.0 K/mm3 (0.0-0.4) 02/03/20 07:04 Baso # (Auto) 0.1 K/mm3 (0.0-0.1) 02/03/20 07:04 Add Manual Diff Complete 12/19/19 11:32 Total Counted 100 12/19/19 11:32 Seg Neutrophils % 72.3 % (40.0-70.0) H 02/03/20 07:04 Seg Neuts % (Manual) 82.0 % (40.0-70.0) H 12/19/19 11:32 Band Neutrophils % 0 % 12/19/19 11:32 Lymphocytes % (Manual) 10.0 % (13.4-35.0) L 12/19/19 11:32 Reactive Lymphs % (Man) 0 % 12/19/19 11:32 Monocytes % (Manual) 6.0 % (0.0-7.3) 12/19/19 11:32 Eosinophils % (Manual) 2.0 % (0.0-4.3) 12/19/19 11:32 Basophils % (Manual) 0 % (0.0-1.8) 12/19/19 11:32 Metamyelocytes % 0 % 12/19/19 11:32 Myelocytes % 0 % 12/19/19 11:32 Promyelocytes % 0 % 12/19/19 11:32 Blast Cells % 0 % 12/19/19 11:32 Nucleated RBC % 1.0 % (0.0-0.9) H 12/19/19 11:32 Seg Neutrophils # 9.4 K/mm3 (1.8-7.7) H 02/03/20 07:04 Seg Neutrophils # Man 12.0 K/mm3 (1.8-7.7) H 12/19/19 11:32 Band Neutrophils # 0.0 K/mm3 12/19/19 11:32 Lymphocytes # (Manual) 1.5 K/mm3 (1.2-5.4) 12/19/19 11:32 Abs React Lymphs (Man) 0.0 K/mm3 12/19/19 11:32 Monocytes # (Manual) 0.9 K/mm3 (0.0-0.8) H 12/19/19 11:32 Eosinophils # (Manual) 0.3 K/mm3 (0.0-0.4) 12/19/19 11:32 Basophils # (Manual) 0.0 K/mm3 (0.0-0.1) 12/19/19 11:32 Metamyelocytes # 0.0 K/mm3 12/19/19 11:32 Myelocytes # 0.0 K/mm3 12/19/19 11:32 Promyelocytes # 0.0 K/mm3 12/19/19 11:32 Blast Cells # 0.0 K/mm3 12/19/19 11:32 WBC Morphology Not Reportable 12/19/19 11:32 Hypersegmented Neuts Not Reportable 12/19/19 11:32 Hyposegmented Neuts Not Reportable 12/19/19 11:32 Hypogranular Neuts Not Reportable 12/19/19 11:32 Smudge Cells Not Reportable 12/19/19 11:32 Toxic Granulation Not Reportable 12/19/19 11:32 Toxic Vacuolation Not Reportable 12/19/19 11:32 Dohle Bodies Not Reportable 12/19/19 11:32 Pelger-Huet Anomaly Not Reportable 12/19/19 11:32 Hector Rods Not Reportable 12/19/19 11:32 Platelet Estimate Consistent w auto 12/19/19 11:32 Clumped Platelets Not Reportable 12/19/19 11:32 Plt Clumps, EDTA Not Reportable 12/19/19 11:32 Large Platelets Not Reportable 12/19/19 11:32 Giant Platelets Not Reportable 12/19/19 11:32 Platelet Satelliting Not Reportable 12/19/19 11:32 Plt Morphology Comment Not Reportable 12/19/19 11:32 RBC Morphology Not Reportable 12/19/19 11:32 Dimorphic RBCs Not Reportable 12/19/19 11:32 Polychromasia Not Reportable 12/19/19 11:32 Hypochromasia Few 12/19/19 11:32 Poikilocytosis Not Reportable 12/19/19 11:32 Anisocytosis 1+ 12/19/19 11:32 Microcytosis Few 12/19/19 11:32 Macrocytosis Few 12/19/19 11:32 Spherocytes Not Reportable 12/19/19 11:32 Pappenheimer Bodies Not Reportable 12/19/19 11:32 Sickle Cells Not Reportable 12/19/19 11:32 Target Cells Not Reportable 12/19/19 11:32 Tear Drop Cells Not Reportable 12/19/19 11:32 Ovalocytes Not Reportable 12/19/19 11:32 Helmet Cells Not Reportable 12/19/19 11:32 Gottlieb-Hartrandt Bodies Not Reportable 12/19/19 11:32 [place] Rings Not Reportable 12/19/19 11:32 Rawson Cells Not Reportable 12/19/19 11:32 Bite Cells Not Reportable 12/19/19 11:32 Crenated Cell Not Reportable 12/19/19 11:32 Elliptocytes Not Reportable 12/19/19 11:32 Acanthocytes (Spur) Not Reportable 12/19/19 11:32 Rouleaux Not Reportable 12/19/19 11:32 Hemoglobin C Crystals Not Reportable 12/19/19 11:32 Schistocytes Not Reportable 12/19/19 11:32 Malaria parasites Not Reportable 12/19/19 11:32 Clifford Bodies Not Reportable 12/19/19 11:32 Hem Pathologist Commnt No 12/19/19 11:32 PT 16.9 Sec. (12.2-14.9) H 01/22/20 09:58 INR 1.34 (0.87-1.13) H 01/22/20 09:58 APTT 31.5 Sec. (24.2-36.6) 01/22/20 09:58 Heparin Anti-Xa Level 1.34 U.I./ml (0.3-0.7) H 01/22/20 04:45 ABG pH 7.447 pH Units (7.350-7.450) 01/25/20 21:02 POC ABG pCO2 45.6 mmHg (32.0-48.0) 01/12/20 13:58 ABG pCO2 47.0 mm Hg 01/25/20 21:02 POC ABG pO2 76.6 mmHg (83-108) L 01/12/20 13:58 ABG pO2 57.5 mm Hg (80.0-90.0) L 01/25/20 21:02 POC ABG HCO3 31.2 01/12/20 13:58 ABG HCO3 31.7 mmol/L (20.0-26.0) H 01/25/20 21:02 ABG O2 Saturation 90.3 % (95.0-99.0) L 01/25/20 21:02 ABG O2 Content 16.0 (0.0-44) 01/25/20 21:02 POC ABG Base Excess 6.5 01/12/20 13:58 ABG Base Excess 6.6 mmol/L (-2.0-3.0) H 01/25/20 21:02 ABG Hemoglobin 13.0 gm/dl (14.0-18.0) L 01/25/20 21:02 ABG Oxyhemoglobin 84 (94-98) L 12/22/19 03:22 ABG Carboxyhemoglobin 2.5 % (0.0-5.0) 01/25/20 21:02 ABG Methemoglobin 0.6 % (0.0-1.5) 01/25/20 21:02 ABG Sodium 136.8 mmol/L (136.0-145.0) 01/12/20 13:58 ABG Potassium 3.7 mmol/L (3.40-4.50) 01/12/20 13:58 ABG Chloride 103.0 mmol/L (98-107) 01/12/20 13:58 ABG Glucose 99 mg/dL (65-95) H 01/12/20 13:58 Oxyhemoglobin 87.5 % (95.0-99.0) L 01/25/20 21:02 Carboxyhemoglobin 0.7 (0.5-1.5) 12/22/19 03:22 FiO2 40 % 01/25/20 21:02 Sodium 145 mmol/L (137-145) 02/07/20 04:57 Potassium 3.4 mmol/L (3.6-5.0) L D 02/07/20 04:57 Chloride 103.0 mmol/L (98-107) 02/07/20 04:57 Carbon Dioxide 32 mmol/L (22-30) H 02/07/20 04:57 Anion Gap 13 mmol/L 02/07/20 04:57 BUN 39 mg/dL (9-20) H 02/07/20 04:57 Creatinine 1.1 mg/dL (0.8-1.3) 02/07/20 04:57 Estimated GFR > 60 ml/min 02/07/20 04:57 BUN/Creatinine Ratio 35 % 02/07/20 04:57 Glucose 106 mg/dL (75-100) H 02/07/20 04:57 POC Glucose 103 mg/dL (70-105) 02/07/20 12:03 Lactic Acid 1.60 mmol/L (0.7-2.0) 02/03/20 12:49 Calcium 9.3 mg/dL (8.4-10.2) 02/07/20 04:57 Ferritin 84.4 ng/mL (30.0-300.0) 11/24/19 04:53 Phosphorus 4.10 mg/dL (2.5-4.5) 01/31/20 19:24 Magnesium 2.60 mg/dL (1.7-2.3) H 02/03/20 12:49 Total Bilirubin 1.70 mg/dL (0.1-1.2) H 02/06/20 16:28 Direct Bilirubin 1.2 mg/dL (0-0.2) H 02/06/20 16:28 Indirect Bilirubin 0.5 mg/dL 02/06/20 16:28 Total Creatine Kinase 141 units/L (55-170) 11/24/19 02:53 CK-MB (CK-2) 4.3 ng/mL (0.0-4.0) H 11/24/19 02:53 AST 824 units/L (5-40) H 02/06/20 16:28 ALT 948 units/L (7-56) H 02/06/20 16:28 CK-MB (CK-2) Rel Index 3.0 (0-4) 11/24/19 02:53 Alkaline Phosphatase 102 units/L (35-129) 02/06/20 16:28 C-Reactive Protein 8.50 mg/dL (0.00-1.30) H 12/01/19 12:16 Ammonia 35.0 umol/L (25-60) 02/03/20 12:49 Lactate Dehydrogenase 228 units/L (91-180) H 12/19/19 04:45 Troponin T < 0.010 ng/mL (0.00-0.029) 01/19/20 01:35 NT-Pro-B Natriuret Pep 3866 pg/mL (0-900) H 01/01/20 10:40 Total Protein 6.7 g/dL (6.3-8.2) 02/06/20 16:28 Albumin 2.9 g/dL (3.9-5) L 02/06/20 16:28 Albumin/Globulin Ratio 0.8 % 02/06/20 16:28 Procalcitonin 0.44 ng/mL (<0.15) 02/03/20 12:49 Arterial Blood Glucose 99 mg/dL (65-95) H 01/12/20 13:58 Arterial Blood Ionized Calcium 4.8 mg/dL (4.6-5.3) 01/12/20 13:58 Urine Color Cecy (Yellow) 12/31/19 18:04 Urine Turbidity Clear (Clear) 12/31/19 18:04 Urine pH 5.0 (5.0-7.0) 12/31/19 18:04 Ur Specific [place] 1.023 (1.003-1.030) 12/31/19 18:04 Urine Protein <15 mg/dl mg/dL (Negative) 12/31/19 18:04 Urine Glucose (UA) Neg mg/dL (Negative) 12/31/19 18:04 Urine Ketones Neg mg/dL (Negative) 12/31/19 18:04 Urine Blood Neg (Negative) 12/31/19 18:04 Urine Bacteria (Auto) 1+ /HPF (Negative) 12/03/19 06:03 Urine Nitrite Neg (Negative) 12/31/19 18:04 Urine Bilirubin Neg (Negative) 12/31/19 18:04 Urine Urobilinogen 4.0 mg/dL (<2.0) 12/31/19 18:04 Ur Leukocyte Esterase Neg (Negative) 12/31/19 18:04 Urine WBC (Auto) 2.0 /HPF (0.0-6.0) 12/31/19 18:04 Urine RBC (Auto) 3.0 /HPF (0.0-6.0) 12/31/19 18:04 U Epithel Cells (Auto) 2.0 /HPF (0-13.0) 12/31/19 18:04 Urine Mucus 1+ /HPF 12/31/19 18:04 Urine Creatinine 57.4 mg/dL (0.1-20.0) H 01/31/20 Unknown Urine Sodium 59 mmol/L 01/31/20 Unknown Vancomycin Trough 14.2 ug/mL (5.0-20.0) 12/13/19 15:01 Coronavirus (PCR) Negative (Negative) 12/29/19 10:07 Hepatitis A IgM Ab Non-reactive (NonReactive) 02/05/20 06:37 Hep Bs Antigen Non-reactive (Negative) 02/05/20 06:37 Hep B Core IgM Ab Non-reactive (NonReactive) 02/05/20 06:37 Hepatitis C Antibody Non-reactive (NonReactive) 02/05/20 06:37 Blood Type O POSITIVE 01/21/20 13:00 Antibody Screen Negative 01/21/20 13:00 Microbiology: Microbiology 02/03/20 15:52 Peripheral/Venous Blood Culture - Preliminary NO GROWTH AFTER 72 HOURS 02/03/20 15:52 Peripheral/Venous Blood Culture - Preliminary NO GROWTH AFTER 72 HOURS - Diagnostic Impressions Diagnostic Impressions: Echocardiogram 11/29/19 07:37 Transthoracic Echocardiogram Indication: CHF BP: 116/72 HR: 33 Conclusions *The study is technically limited due to poor acoustic windows. *Global left ventricular systolic function is normal. *The estimated ejection fraction is 50-55%. *Mild concentric left ventricular hypertrophy is observed. *There is trace of mitral regurgitation. *There is mild tricuspid regurgitation. Findings Procedure Info: The study quality is poor. The study is technically limited due to poor acoustic windows. The study is technically limited due to patient body habitus. Left Ventricle: The left ventricular chamber size is normal. Mild concentric left ventricular hypertrophy is observed. Global left ventricular systolic function is normal. The estimated ejection fraction is 50-55%. Left Atrium: The left atrial chamber size is normal. Right Ventricle: The right ventricular cavity size is normal. Right Atrium: The right atrial cavity size is normal. Aortic Valve: The aortic valve leaflets are moderately thickened. There is trace of aortic regurgitation. There is no evidence of aortic stenosis. Mitral Valve: The mitral valve leaflets are mildly thickened. There is trace of mitral regurgitation. There is no evidence of mitral stenosis. Tricuspid Valve: There is mild tricuspid regurgitation. No pulmonary hypertension is noted. Pulmonic Valve: There is trace pulmonic regurgitation. Pericardium: There is no pericardial effusion. Aorta: There is no dilatation of the aortic root. Venous: The inferior vena cava appears normal in size. Contrast: Definity was used to optimize study. Intravenous contrast was used to enhance endocardial border definition. Measurements Chambers 2D Name Value Normal Range Ao root diameter (2D) 3.4 cm (2 - 3.7) Aortic Valve Name Value Normal Range AV Vmax 0.98 m/sec - AV VTI 16.76 cm - AV peak gradient 3.83 mmHg - AV mean gradient 2.57 mmHg - LVOT diameter 3.11 cm - LVOT Vmax 0.68 m/sec - LVOT VTI 11.52 cm - LVOT peak gradient 1.84 mmHg - LVOT mean gradient 1.27 mmHg - SV LVOT 87.31 ml - MALOU (continuity Vmax) 5.24 cm2 - MALOU (continuity VTI) 5.21 cm2 - Tricuspid Valve Name Value Normal Range IVC diameter 2.24 cm (1.2 - 2.3) Hoffman/IV: Voiding Method Indwelling Catheter IV Catheter Type [Right INT / Saline Lock Forearm] IV Catheter Type [Right Hand] Peripheral IV IV Catheter Type [Right Upper INT / Saline Lock arm] IV Catheter Type [Left Upper Mid-line arm] IV Catheter Type [Left Forearm INT / Saline Lock ] IV Catheter Type [Left Hand] Peripheral IV IV Catheter Type [Left Wrist] INT / Saline Lock IV Catheter Type [Right Peripheral IV Antecubital] Active Medications - Current Medications Current Medications: Generic Name Dose Route Start Last Admin Trade Name Freq PRN Reason Stop Dose Admin Acetaminophen 650 mg 12/31/19 11:43 02/03/20 12:54 Tylenol FEEDTUBE 650 mg Q6H PRN Administration Pain, Mild (1-3) Lipase/Protease/Amylase 1 each 01/09/20 12:[address] 10,500 Unit FEEDTUBE PRN PRN For Clogged Feeding Tube Apixaban 5 mg 01/22/20 22:00 02/07/20 09:51 Eliquis PO 5 mg Q12HR CAR Administration Protocol Atorvastatin Calcium 40 mg 01/20/20 22:00 02/06/20 21:25 Lipitor PO 40 mg QHS CAR Administration Clopidogrel Bisulfate 75 mg 01/21/20 06:00 02/07/20 09:51 Plavix PO 75 mg QDAY CAR Administration Dextrose 50 ml 01/31/20 18:51 02/05/20 00:56 D50w (25gm) Syringe IV 50 ml Q30MIN PRN Administration Hypoglycemia Protocol Fentanyl 50 mcg 02/01/20 15:52 Sublimaze IV Q10MIN PRN ANALGESIA Glycopyrrolate 2 mg 01/26/20 20:00 02/07/20 13:06 Glycopyrrolate PO 2 mg TID CAR Administration Haloperidol Lactate 5 mg 12/25/19 10:00 01/22/20 11:35 Haldol IV 5 mg Q6H PRN Administration Unrespon. to mult. doses BZD's Hydrophilic Ointment 1 applic 01/17/20 15:26 Vaseline Lip Therapy TP DIRECT PRN Dry Lips Fentanyl Citrate 2,000 mcg in 100 mls @ 5.65 mls/hr 02/01/20 16:00 02/03/20 11:31 Fentanyl Drip Premix IV 0 mcg/kg/hr TITR CAR 0 mls/hr Titration Protocol 1 MCG/KG/HR Insulin Human Regular 0 unit 02/01/20 18:00 02/07/20 13:07 Humulin R SUB-Q Not Given Q6H CAR Protocol Lansoprazole 30 mg 02/05/20 16:00 02/07/20 09:51 Prevacid Solutab FEEDTUBE 30 mg QDAY CAR Administration Lorazepam 2 mg 12/25/19 10:00 01/31/20 14:22 Ativan IV 2 mg Q6H PRN Administration AGITATION Metoclopramide HCl 5 mg 02/04/20 12:00 02/07/20 13:06 Reglan IV 5 mg Q6HR CAR Administration Metoprolol Tartrate 5 mg 01/11/20 08:00 02/03/20 07:16 Metoprolol IV 5 mg Q6H PRN Administration SEE INSTRUCTIONS Metoprolol Tartrate 50 mg 02/05/20 12:00 02/07/20 13:07 Metoprolol PO 50 mg Q6HR CAR Administration Midodrine 15 mg 02/04/20 16:00 02/07/20 13:06 Proamatine PO 15 mg TID@0800,1200,1600 CAR Administration Morphine Sulfate 2 mg 01/06/20 15:41 02/03/20 17:27 Morphine IV 2 mg Q4H PRN Administration Pain, Moderate (4-6) Multi-Ingred Cream/Lotion/Oil/Oint 1 applic 02/01/20 15:52 Artificial Tears Ophth Oint OU Q4HR PRN Dry Eye(s) Nitroglycerin 0.4 mg 01/19/20 21:09 01/20/20 03:03 Nitrostat SL 0.4 mg .Q5MIN PRN Administration Chest Pain Ondansetron HCl 4 mg 01/05/20 14:37 02/07/20 00:10 Zofran IV 4 mg Q8H PRN Administration Nausea And Vomiting Polyethylene Glycol 17 gm 12/04/19 22:00 02/06/20 21:23 Miralax 3350 PO 17 gm QHS CAR Administration Quetiapine Fumarate 300 mg 01/13/20 22:00 02/07/20 09:51 Seroquel PO 300 mg BID CAR Administration Scopolamine 1 each 01/07/20 20:00 01/07/20 21:08 Transderm-Scop TD 1 each Q72HR CAR Administration Simple Syrup 15 ml 01/09/20 12:01 Simple Syrup FEEDTUBE PRN PRN Hypoglycemia Simple Syrup 30 ml 01/09/20 12:01 Simple Syrup FEEDTUBE PRN PRN Hypoglycemia Sodium Bicarbonate 325 mg 01/09/20 12:01 Sodium Bicarbonate FEEDTUBE PRN PRN For Clogged Feeding Tube Sodium Chloride 10 ml 11/24/19 10:00 02/07/20 09:53 Sodium Chloride Flush Syringe 10 Ml IV 10 ml BID CAR Administration Tamsulosin HCl 0.8 mg 12/20/19 22:00 02/06/20 21:24 Flomax PO 0.8 mg QHS CAR Administration Nutrition/Malnutrition Assess - Dietary Evaluation Nutrition/Malnutrition Findings: Nutrition Notes Start: 11/24/19 12:22 Freq: Status: Active Protocol: Document 02/04/20 12:28 AL (Rec: 02/04/20 12:29 AL [id number]) Co-Sign 02/04/20 12:28 MK Nutrition Notes Initial or Follow up Brief Note Current Diagnosis Coronary Artery Disease,Heart Failure,Respiratory Failure, Stroke,Hyperlipidemia Other Pertinent Diagnosis Partial SBO, pneu, ventilated trach Current Diet NPO Subjective/Other Information F/U for TF restart and weight. Per RN, patient is still NPO. TF is still on hold. NGT on LIS. Nutrition Intervention Follow-Up By: 02/09/20 Additional Comments F/U for POC
--- NOTE | 2020-02-07 15:28 | Gastroenterology Progress Note ---
Assessment and Plan - Patient Problems (1) Abnormal liver enzymes Current Visit: Yes Status: Acute Plan to address problem: - hepatic panel from today pending. but previously stable. - acute hepatitis panel negative. - CT a/p with no liver abnormalities - possible drug induced with amiodarone, which is off now vs ischemic injury - LFTs trended upwards to AST/ALT 800s/900s on . - will repeat today. check INR - will monitor conservatively. (2) Nausea & vomiting Current Visit: Yes Status: Acute Plan to address problem: - Hx of partial SBO, which has resolved. - n/v likely 2/2 fecal impaction, which is resolved after receiving Golytely p rep. having multiple stools. - continue with miralax daily. (3) Pancreatic lesion Current Visit: Yes Status: Acute Plan to address problem: - CT a/p showing ~ 2 cm pancreatic head lesion. this was previously seen in prior CT but enlarged. - recommend work up outpatient with MRI once patient recovers from acute issues. Subjective Date of service: 02/07/20 Principal diagnosis: Ac hypoxemic resp failure; Pneumonia; PUI COVID-19; CHF; COPD; HTN Interval history: No acute events. Patient without nausea/vomiting. Having soft stools. Objective - Constitutional Vitals: Temp Pulse Resp BP Pulse Ox 98.3 F 89 16 101/71 100 02/07/20 12:00 02/07/20 15:00 02/07/20 15:00 02/07/20 15:00 02/07/20 15:00 General appearance: no acute distress - EENT ENT: hearing intact - Respiratory Respiratory effort: normal, other (trach in place) - Cardiovascular Rhythm: regular Heart Sounds: Present: S1 & S2 - Gastrointestinal General gastrointestinal: Present: soft, non-tender, non-distended, other (PEG in place) - Integumentary Integumentary: Present: clear, warm - Labs CBC & Chem 7: 02/07/20 04:57 02/07/20 04:57 Labs: Laboratory Results - last 24 hr 02/06/20 02/06/20 02/07/20 16:28 17:32 00:11 WBC RBC Hgb Hct MCV MCH MCHC RDW Plt Count Sodium Potassium Chloride Carbon Dioxide Anion Gap BUN Creatinine Estimated GFR BUN/Creatinine Ratio Glucose POC Glucose 129 H 121 H Calcium Total Bilirubin 1.70 H Direct Bilirubin 1.2 H Indirect Bilirubin 0.5 AST 824 H ALT 948 H Alkaline Phosphatase 102 Total Protein 6.7 Albumin 2.9 L Albumin/Globulin Ratio 0.8 02/07/20 02/07/20 02/07/20 04:57 04:57 05:42 WBC 7.2 RBC 3.73 Hgb 9.2 L Hct 29.7 L MCV 80 L MCH 25 L MCHC 31 L RDW 20.2 H Plt Count 230 Sodium 145 Potassium 3.4 L D Chloride 103.0 Carbon Dioxide 32 H Anion Gap 13 BUN 39 H Creatinine 1.1 Estimated GFR > 60 BUN/Creatinine Ratio 35 Glucose 106 H POC Glucose 99 Calcium 9.3 Total Bilirubin Direct Bilirubin Indirect Bilirubin AST ALT Alkaline Phosphatase Total Protein Albumin Albumin/Globulin Ratio 02/07/20 12:03 WBC RBC Hgb Hct MCV MCH MCHC RDW Plt Count Sodium Potassium Chloride Carbon Dioxide Anion Gap BUN Creatinine Estimated GFR BUN/Creatinine Ratio Glucose POC Glucose 103 Calcium Total Bilirubin Direct Bilirubin Indirect Bilirubin AST ALT Alkaline Phosphatase Total Protein Albumin Albumin/Globulin Ratio
[2020-02-07 15:31] LABS: INR 2.46 (0.87-1.13)
[2020-02-07 15:40] LABS: Albumin 2.9 g/dL (3.9-5); Bilirubin,Direct 1.2 mg/dL (0-0.2)
[2020-02-07] MEDS: MORPHINE 2 MG/1 ML INJ IV PRN ×2 (16:13→23:51)
--- NOTE | 2020-02-07 16:43 | Progress Note ---
Assessment and Plan Acute hypoxemic respiratory failure Bilateral pneumonia, community acquired. Acute LLL branch P.E. Acute DVT Person under investigation for COVID-19 infection. Acute congestive heart failure exacerbation. History of cerebrovascular accident. Acute chronic obstructive pulmonary disease exacerbation. Hypertension and hypertensive urgency at presentation. History of arthritis. Leukocytosis. Lactic acidosis. Oropharyngeal dysphagia - begin daytime t-piece trials in am as tolerated (PSV if fails t-piece) - continue care as below otherwise; - continue daily SAT's and SBT assessment as tolerated - continue Flomax at increased dose - antiinfective's per ID rec's - Midodrine for BP support - prn mucomyst nebs re: secretions - continue full anticoagulation with Apixaban - continue seroquel for anxiolysis / delirium - COVID isolation per facility protocol - prn diuresis while following electrolytes / I's & O's - continue to wean oxygen for O2 sat's > 92% - continue bronchodilators with routine trach care and pulmonary hygiene per RT - continue Robinul & Scopolamine for secretion control - VAP bundle addressed (Aspiration precautions, HOB >40) - continue to wean per pulmonary driven protocols - sedation target is RASS 0 to -1 - continue prn analgesia per CPOT score - follow clinically re: fever curves / trend WBC - Avoid delirium (no benzodiazepines if they can be avoided) - Maintain sleep-wake cycle - enteral nutrition at goal rate as tolerated - continue accucheck's with glycemic control per SSI for target blood glucose goal of 140-180 mg/dL while critically ill; Avoid hypoglycemia - for VTE he is on IV Heparin - continue stress ulcer prophylaxis with Famotidine - continue mobility protocols for pressure ulcer prophylaxis - continue fall precautions - continue wound care management per RN / WCT - Supportive transfusions to keep HgB>7g/dL - CXR's and ABG's prn - Continue to monitor neurologic function - Continue chronic home medications - Continue all supportive care ........ re-evaluate in am & prn CONDITION: CRITICAL PROGNOSIS: GUARDED CODE STATUS: FULL CODE The high probability of a clinically significant, sudden or life threatening deterioration of the [Respiratory, cardiovascular & neurological] system(s) required my full and direct attention, intervention and personal management. The aggregate critical care time was [33] minutes without overlap. Time includes spent on [x] Data Review and interpretation [x] Patient assessment and monitoring of vital signs [x] Documentation [x] Medication orders and management Subjective Date of service: 02/07/20 Principal diagnosis: Ac hypoxemic resp failure; Pneumonia; PUI COVID-19; CHF; COPD; HTN Interval history: Patient is seen today for: Acute hypoxemic respiratory failure; Adan. Pneumonia (CAP); PUI COVID-19 infection; AE-CHF; AE-COPD; H/O CVA; HTN Seen and examined at bedside; 24 hour events reviewed; nursing and respiratory care staff consulted; no adverse overnight events reported to me; resting peacefully in bed; on SBT via PSV (12/28) and tolerating well; tolerating tube feeds; No N/V/F/C; LFT's trending downwards; denies acute chest pains or palpitations Objective Vital Signs - 12hr 02/07/20 02/07/20 02/07/20 04:42 05:00 06:00 Temperature Pulse Rate 92 H 90 90 Respiratory 20 18 Rate Blood Pressure 105/73 96/63 96/64 O2 Sat by Pulse 100 100 100 Oximetry 02/07/20 02/07/20 02/07/20 07:00 08:00 09:01 Temperature Pulse Rate 90 86 92 H Respiratory 20 16 10 L Rate Blood Pressure 95/69 92/67 108/31 O2 Sat by Pulse 100 100 99 Oximetry 02/07/20 02/07/20 02/07/20 09:37 10:00 11:00 Temperature Pulse Rate 97 H 92 H 91 H Respiratory 18 16 10 L Rate Blood Pressure 126/90 100/75 101/67 O2 Sat by Pulse 100 100 100 Oximetry 02/07/20 02/07/20 02/07/20 12:00 12:28 13:00 Temperature 98.3 F Pulse Rate 89 91 H 90 Respiratory 17 17 18 Rate Blood Pressure 103/70 101/67 101/69 O2 Sat by Pulse 100 100 100 Oximetry 02/07/20 02/07/20 02/07/20 13:07 14:00 15:00 Temperature Pulse Rate 89 92 H 89 Respiratory 18 16 Rate Blood Pressure 101/69 104/71 101/71 O2 Sat by Pulse 100 100 Oximetry 02/07/20 02/07/20 15:56 16:36 Temperature 97.9 F Pulse Rate 89 Respiratory 16 Rate Blood Pressure 101/75 O2 Sat by Pulse 100 Oximetry Constitutional: no acute distress, other (elelelderly and obese male, normocephalic with mildly increased respiratory effort at rest) Eyes: non-icteric ENT: oropharynx moist, other (+ midline tracheostomy) Neck: supple, no JVD Effort: mildly labored Ascultation: Bilateral: diminished breath sounds, rhonchi Percussion: Bilateral: not dull Cardiovascular: irregular rhythm, other (flow murmur) Gastrointestinal: normoactive bowel sounds, soft, non-tender, non-distended (protuberant), other (protuberant; PEG in place) Integumentary: normal Extremities: no cyanosis, pulses normal, no ischemia or petechiae, edema (bilateral upper ) Neurologic: non-focal exam (moves extremities), pupils equal and round, CN II- XII normal, motor strength normal and (weak) Psychiatric: mood appropriate, affect normal CBC and BMP: 02/07/20 04:57 02/07/20 04:57 ABG, PT/INR, D-dimer: ABG ABG pH 7.447 pH Units (7.350-7.450) 01/25/20 21:02 POC ABG pCO2 45.6 mmHg (32.0-48.0) 01/12/20 13:58 ABG pCO2 47.0 mm Hg 01/25/20 21:02 POC ABG pO2 76.6 mmHg (83-108) L 01/12/20 13:58 ABG pO2 57.5 mm Hg (80.0-90.0) L 01/25/20 21:02 POC ABG HCO3 31.2 01/12/20 13:58 ABG O2 Saturation 90.3 % (95.0-99.0) L 01/25/20 21:02 PT/INR, D-dimer PT 27.0 Sec. (12.2-14.9) H 02/07/20 15:03 INR 2.46 (0.87-1.13) H 02/07/20 15:03 Abnormal lab findings: Abnormal Labs 11/24/19 11/24/19 11/24/19 02:53 02:53 03:45 WBC 14.3 H RBC Hgb Hct MCHC RDW 17.2 H MCV MCH Lymph % (Auto) [place] % (Auto) [place] # Eos # Lymph # (Auto) [place] # (Auto) Eos # (Auto) Seg Neutrophils % Seg Neuts % (Manual) Baso # (Auto) Lymphocytes % (Manual) Monocytes % (Manual) Eosinophils % (Manual) Basophils % (Manual) Seg Neutrophils # Seg Neutrophils # Man 8.3 H Lymphocytes # (Manual) Monocytes # (Manual) 0.9 H Eosinophils # (Manual) Nucleated RBC % Basophils # (Manual) PT INR APTT Heparin Anti-Xa Level ABG pH 7.313 L POC ABG pO2 ABG pO2 102.8 H ABG HCO3 ABG O2 Saturation ABG Base Excess -2.9 L POC ABG pCO2 ABG Hemoglobin ABG Oxyhemoglobin ABG Glucose Oxyhemoglobin 93.9 L Sodium Potassium Chloride Carbon Dioxide BUN Creatinine Glucose 195 H POC Glucose Lactic Acid Calcium Phosphorus Magnesium AST ALT Lactate Dehydrogenase Total Bilirubin Direct Bilirubin CK-MB (CK-2) 4.3 H C-Reactive Protein NT-Pro-B Natriuret Pep 1181 H Total Protein Albumin Arterial Blood Glucose Urine WBC (Auto) Urine Creatinine 11/24/19 11/24/19 11/24/19 04:53 04:53 10:37 WBC RBC Hgb Hct MCHC RDW MCV MCH Lymph % (Auto) [place] % (Auto) [place] # Eos # Lymph # (Auto) [place] # (Auto) Eos # (Auto) Seg Neutrophils % Seg Neuts % (Manual) Baso # (Auto) Lymphocytes % (Manual) Monocytes % (Manual) Eosinophils % (Manual) Basophils % (Manual) Seg Neutrophils # Seg Neutrophils # Man Lymphocytes # (Manual) Monocytes # (Manual) Eosinophils # (Manual) Nucleated RBC % Basophils # (Manual) PT INR APTT Heparin Anti-Xa Level ABG pH POC ABG pO2 ABG pO2 ABG HCO3 ABG O2 Saturation ABG Base Excess POC ABG pCO2 ABG Hemoglobin ABG Oxyhemoglobin ABG Glucose Oxyhemoglobin Sodium Potassium Chloride Carbon Dioxide BUN Creatinine Glucose 162 H POC Glucose Lactic Acid 2.40 H* 2.50 H* Calcium Phosphorus Magnesium AST ALT Lactate Dehydrogenase 240 H Total Bilirubin Direct Bilirubin CK-MB (CK-2) C-Reactive Protein NT-Pro-B Natriuret Pep Total Protein Albumin Arterial Blood Glucose Urine WBC (Auto) Urine Creatinine 11/24/19 11/24/19 11/24/19 12:21 14:50 19:54 WBC RBC Hgb Hct MCHC RDW MCV MCH Lymph % (Auto) [place] % (Auto) [place] # Eos # Lymph # (Auto) [place] # (Auto) Eos # (Auto) Seg Neutrophils % Seg Neuts % (Manual) Baso # (Auto) Lymphocytes % (Manual) Monocytes % (Manual) Eosinophils % (Manual) Basophils % (Manual) Seg Neutrophils # Seg Neutrophils # Man Lymphocytes # (Manual) Monocytes # (Manual) Eosinophils # (Manual) Nucleated RBC % Basophils # (Manual) PT INR APTT Heparin Anti-Xa Level ABG pH POC ABG pO2 ABG pO2 ABG HCO3 ABG O2 Saturation ABG Base Excess POC ABG pCO2 ABG Hemoglobin ABG Oxyhemoglobin ABG Glucose Oxyhemoglobin Sodium Potassium Chloride Carbon Dioxide BUN Creatinine Glucose POC Glucose 145 H 143 H 124 H Lactic Acid Calcium Phosphorus Magnesium AST ALT Lactate Dehydrogenase Total Bilirubin Direct Bilirubin CK-MB (CK-2) C-Reactive Protein NT-Pro-B Natriuret Pep Total Protein Albumin Arterial Blood Glucose Urine WBC (Auto) Urine Creatinine 11/25/19 11/25/19 11/25/19 00:18 03:18 05:11 WBC 13.7 H RBC Hgb Hct MCHC RDW 17.1 H MCV MCH Lymph % (Auto) 10.8 L [place] % (Auto) 8.7 H [place] # 1.2 H Eos # Lymph # (Auto) [place] # (Auto) Eos # (Auto) Seg Neutrophils % 80.2 H Seg Neuts % (Manual) Baso # (Auto) Lymphocytes % (Manual) Monocytes % (Manual) Eosinophils % (Manual) Basophils % (Manual) Seg Neutrophils # 11.0 H Seg Neutrophils # Man Lymphocytes # (Manual) Monocytes # (Manual) Eosinophils # (Manual) Nucleated RBC % Basophils # (Manual) PT INR APTT Heparin Anti-Xa Level ABG pH 7.333 L POC ABG pO2 ABG pO2 61.2 L ABG HCO3 ABG O2 Saturation 90.2 L ABG Base Excess POC ABG pCO2 ABG Hemoglobin 13.7 L ABG Oxyhemoglobin ABG Glucose Oxyhemoglobin 88.2 L Sodium Potassium Chloride Carbon Dioxide BUN Creatinine Glucose POC Glucose 109 H Lactic Acid Calcium Phosphorus Magnesium AST ALT Lactate Dehydrogenase Total Bilirubin Direct Bilirubin CK-MB (CK-2) C-Reactive Protein NT-Pro-B Natriuret Pep Total Protein Albumin Arterial Blood Glucose Urine WBC (Auto) Urine Creatinine 11/25/19 11/25/19 11/26/19 05:11 11:40 03:12 WBC RBC Hgb Hct MCHC RDW MCV MCH Lymph % (Auto) [place] % (Auto) [place] # Eos # Lymph # (Auto) [place] # (Auto) Eos # (Auto) Seg Neutrophils % Seg Neuts % (Manual) Baso # (Auto) Lymphocytes % (Manual) Monocytes % (Manual) Eosinophils % (Manual) Basophils % (Manual) Seg Neutrophils # Seg Neutrophils # Man Lymphocytes # (Manual) Monocytes # (Manual) Eosinophils # (Manual) Nucleated RBC % Basophils # (Manual) PT INR APTT Heparin Anti-Xa Level ABG pH POC ABG pO2 ABG pO2 155.1 H ABG HCO3 27.8 H ABG O2 Saturation ABG Base Excess POC ABG pCO2 ABG Hemoglobin 12.2 L ABG Oxyhemoglobin ABG Glucose Oxyhemoglobin Sodium Potassium Chloride Carbon Dioxide BUN 23 H Creatinine Glucose 110 H POC Glucose 108 H Lactic Acid Calcium Phosphorus Magnesium AST ALT Lactate Dehydrogenase Total Bilirubin Direct Bilirubin CK-MB (CK-2) C-Reactive Protein NT-Pro-B Natriuret Pep Total Protein Albumin Arterial Blood Glucose Urine WBC (Auto) Urine Creatinine 11/26/19 11/26/19 11/26/19 06:17 10:43 10:43 WBC 11.4 H RBC Hgb Hct MCHC RDW 17.1 H MCV MCH Lymph % (Auto) [place] % (Auto) [place] # Eos # Lymph # (Auto) [place] # (Auto) Eos # (Auto) Seg Neutrophils % Seg Neuts % (Manual) Baso # (Auto) Lymphocytes % (Manual) Monocytes % (Manual) Eosinophils % (Manual) Basophils % (Manual) Seg Neutrophils # Seg Neutrophils # Man Lymphocytes # (Manual) Monocytes # (Manual) Eosinophils # (Manual) Nucleated RBC % Basophils # (Manual) PT INR APTT Heparin Anti-Xa Level ABG pH POC ABG pO2 ABG pO2 ABG HCO3 ABG O2 Saturation ABG Base Excess POC ABG pCO2 ABG Hemoglobin ABG Oxyhemoglobin ABG Glucose Oxyhemoglobin Sodium Potassium Chloride Carbon Dioxide BUN 29 H Creatinine Glucose POC Glucose 107 H Lactic Acid Calcium Phosphorus Magnesium AST ALT Lactate Dehydrogenase Total Bilirubin Direct Bilirubin CK-MB (CK-2) C-Reactive Protein NT-Pro-B Natriuret Pep Total Protein Albumin Arterial Blood Glucose Urine WBC (Auto) Urine Creatinine 11/26/19 11/27/19 11/27/19 17:11 01:53 04:11 WBC RBC Hgb Hct MCHC RDW MCV MCH Lymph % (Auto) [place] % (Auto) [place] # Eos # Lymph # (Auto) [place] # (Auto) Eos # (Auto) Seg Neutrophils % Seg Neuts % (Manual) Baso # (Auto) Lymphocytes % (Manual) Monocytes % (Manual) Eosinophils % (Manual) Basophils % (Manual) Seg Neutrophils # Seg Neutrophils # Man Lymphocytes # (Manual) Monocytes # (Manual) Eosinophils # (Manual) Nucleated RBC % Basophils # (Manual) PT INR APTT Heparin Anti-Xa Level ABG pH POC ABG pO2 ABG pO2 ABG HCO3 29.2 H ABG O2 Saturation ABG Base Excess 3.4 H POC ABG pCO2 ABG Hemoglobin 13.3 L ABG Oxyhemoglobin ABG Glucose Oxyhemoglobin 94.5 L Sodium Potassium Chloride Carbon Dioxide BUN Creatinine Glucose POC Glucose 113 H 108 H Lactic Acid Calcium Phosphorus Magnesium AST ALT Lactate Dehydrogenase Total Bilirubin Direct Bilirubin CK-MB (CK-2) C-Reactive Protein NT-Pro-B Natriuret Pep Total Protein Albumin Arterial Blood Glucose Urine WBC (Auto) Urine Creatinine 11/27/19 11/28/19 11/28/19 05:27 05:00 05:25 WBC RBC Hgb Hct MCHC RDW MCV MCH Lymph % (Auto) [place] % (Auto) [place] # Eos # Lymph # (Auto) [place] # (Auto) Eos # (Auto) Seg Neutrophils % Seg Neuts % (Manual) Baso # (Auto) Lymphocytes % (Manual) Monocytes % (Manual) Eosinophils % (Manual) Basophils % (Manual) Seg Neutrophils # Seg Neutrophils # Man Lymphocytes # (Manual) Monocytes # (Manual) Eosinophils # (Manual) Nucleated RBC % Basophils # (Manual) PT INR APTT Heparin Anti-Xa Level ABG pH POC ABG pO2 68.1 L ABG pO2 ABG HCO3 ABG O2 Saturation ABG Base Excess POC ABG pCO2 ABG Hemoglobin ABG Oxyhemoglobin 91.2 L ABG Glucose Oxyhemoglobin Sodium Potassium Chloride Carbon Dioxide BUN Creatinine Glucose POC Glucose 111 H 110 H Lactic Acid Calcium Phosphorus Magnesium AST ALT Lactate Dehydrogenase Total Bilirubin Direct Bilirubin CK-MB (CK-2) C-Reactive Protein NT-Pro-B Natriuret Pep Total Protein Albumin Arterial Blood Glucose Urine WBC (Auto) Urine Creatinine 11/28/19 11/28/19 11/28/19 12:08 13:47 13:47 WBC 11.3 H RBC Hgb Hct MCHC RDW 16.1 H MCV MCH Lymph % (Auto) [place] % (Auto) 9.9 H [place] # 1.1 H Eos # Lymph # (Auto) [place] # (Auto) Eos # (Auto) Seg Neutrophils % 71.4 H Seg Neuts % (Manual) Baso # (Auto) Lymphocytes % (Manual) Monocytes % (Manual) Eosinophils % (Manual) Basophils % (Manual) Seg Neutrophils # 8.1 H Seg Neutrophils # Man Lymphocytes # (Manual) Monocytes # (Manual) Eosinophils # (Manual) Nucleated RBC % Basophils # (Manual) PT INR APTT Heparin Anti-Xa Level ABG pH POC ABG pO2 ABG pO2 ABG HCO3 ABG O2 Saturation ABG Base Excess POC ABG pCO2 ABG Hemoglobin ABG Oxyhemoglobin ABG Glucose Oxyhemoglobin Sodium Potassium Chloride Carbon Dioxide BUN 23 H Creatinine Glucose 123 H POC Glucose 112 H Lactic Acid Calcium Phosphorus Magnesium AST ALT Lactate Dehydrogenase Total Bilirubin Direct Bilirubin CK-MB (CK-2) C-Reactive Protein NT-Pro-B Natriuret Pep Total Protein Albumin 3.7 L Arterial Blood Glucose Urine WBC (Auto) Urine Creatinine 11/28/19 11/29/19 11/29/19 17:26 03:55 17:04 WBC RBC Hgb Hct MCHC RDW MCV MCH Lymph % (Auto) [place] % (Auto) [place] # Eos # Lymph # (Auto) [place] # (Auto) Eos # (Auto) Seg Neutrophils % Seg Neuts % (Manual) Baso # (Auto) Lymphocytes % (Manual) Monocytes % (Manual) Eosinophils % (Manual) Basophils % (Manual) Seg Neutrophils # Seg Neutrophils # Man Lymphocytes # (Manual) Monocytes # (Manual) Eosinophils # (Manual) Nucleated RBC % Basophils # (Manual) PT INR APTT Heparin Anti-Xa Level ABG pH POC ABG pO2 ABG pO2 65.7 L ABG HCO3 28.3 H ABG O2 Saturation 93.9 L ABG Base Excess 3.6 H POC ABG pCO2 ABG Hemoglobin 13.3 L ABG Oxyhemoglobin ABG Glucose Oxyhemoglobin 91.5 L Sodium Potassium Chloride Carbon Dioxide BUN Creatinine Glucose POC Glucose 123 H 119 H Lactic Acid Calcium Phosphorus Magnesium AST ALT Lactate Dehydrogenase Total Bilirubin Direct Bilirubin CK-MB (CK-2) C-Reactive Protein NT-Pro-B Natriuret Pep Total Protein Albumin Arterial Blood Glucose Urine WBC (Auto) Urine Creatinine 11/30/19 11/30/19 11/30/19 04:17 04:17 04:56 WBC 13.4 H RBC Hgb Hct MCHC RDW 15.6 H MCV MCH Lymph % (Auto) [place] % (Auto) [place] # Eos # Lymph # (Auto) [place] # (Auto) Eos # (Auto) Seg Neutrophils % Seg Neuts % (Manual) Baso # (Auto) Lymphocytes % (Manual) Monocytes % (Manual) Eosinophils % (Manual) Basophils % (Manual) Seg Neutrophils # Seg Neutrophils # Man Lymphocytes # (Manual) Monocytes # (Manual) Eosinophils # (Manual) Nucleated RBC % Basophils # (Manual) PT INR APTT Heparin Anti-Xa Level ABG pH POC ABG pO2 ABG pO2 56.3 L ABG HCO3 29.3 H ABG O2 Saturation 91.5 L ABG Base Excess 4.7 H POC ABG pCO2 ABG Hemoglobin 12.1 L ABG Oxyhemoglobin ABG Glucose Oxyhemoglobin 89.2 L Sodium 147 H Potassium Chloride Carbon Dioxide BUN 30 H Creatinine Glucose 124 H POC Glucose Lactic Acid Calcium Phosphorus Magnesium AST ALT Lactate Dehydrogenase Total Bilirubin Direct Bilirubin CK-MB (CK-2) C-Reactive Protein NT-Pro-B Natriuret Pep Total Protein Albumin 3.8 L Arterial Blood Glucose Urine WBC (Auto) Urine Creatinine 11/30/19 11/30/19 11/30/19 05:51 11:54 18:17 WBC RBC Hgb Hct MCHC RDW MCV MCH Lymph % (Auto) [place] % (Auto) [place] # Eos # Lymph # (Auto) [place] # (Auto) Eos # (Auto) Seg Neutrophils % Seg Neuts % (Manual) Baso # (Auto) Lymphocytes % (Manual) Monocytes % (Manual) Eosinophils % (Manual) Basophils % (Manual) Seg Neutrophils # Seg Neutrophils # Man Lymphocytes # (Manual) Monocytes # (Manual) Eosinophils # (Manual) Nucleated RBC % Basophils # (Manual) PT INR APTT Heparin Anti-Xa Level ABG pH POC ABG pO2 ABG pO2 ABG HCO3 ABG O2 Saturation ABG Base Excess POC ABG pCO2 ABG Hemoglobin ABG Oxyhemoglobin ABG Glucose Oxyhemoglobin Sodium Potassium Chloride Carbon Dioxide BUN Creatinine Glucose POC Glucose 127 H 115 H 143 H Lactic Acid Calcium Phosphorus Magnesium AST ALT Lactate Dehydrogenase Total Bilirubin Direct Bilirubin CK-MB (CK-2) C-Reactive Protein NT-Pro-B Natriuret Pep Total Protein Albumin Arterial Blood Glucose Urine WBC (Auto) Urine Creatinine 12/01/19 12/01/19 12/01/19 01:18 05:22 12:16 WBC RBC Hgb Hct MCHC RDW MCV MCH Lymph % (Auto) [place] % (Auto) [place] # Eos # Lymph # (Auto) [place] # (Auto) Eos # (Auto) Seg Neutrophils % Seg Neuts % (Manual) Baso # (Auto) Lymphocytes % (Manual) Monocytes % (Manual) Eosinophils % (Manual) Basophils % (Manual) Seg Neutrophils # Seg Neutrophils # Man Lymphocytes # (Manual) Monocytes # (Manual) Eosinophils # (Manual) Nucleated RBC % Basophils # (Manual) PT INR APTT Heparin Anti-Xa Level ABG pH POC ABG pO2 ABG pO2 ABG HCO3 ABG O2 Saturation ABG Base Excess POC ABG pCO2 ABG Hemoglobin ABG Oxyhemoglobin ABG Glucose Oxyhemoglobin Sodium Potassium 3.5 L Chloride 107.8 H Carbon Dioxide BUN 37 H Creatinine Glucose 157 H POC Glucose 118 H 148 H Lactic Acid Calcium 8.2 L D Phosphorus Magnesium AST 48 H ALT 60 H Lactate Dehydrogenase 194 H Total Bilirubin Direct Bilirubin CK-MB (CK-2) C-Reactive Protein 8.50 H NT-Pro-B Natriuret Pep Total Protein 5.5 L Albumin 2.8 L Arterial Blood Glucose Urine WBC (Auto) Urine Creatinine 12/01/19 12/02/19 12/02/19 18:04 00:05 05:16 WBC 11.4 H RBC Hgb Hct MCHC RDW 15.9 H MCV MCH Lymph % (Auto) [place] % (Auto) 9.9 H [place] # 1.1 H Eos # Lymph # (Auto) [place] # (Auto) Eos # (Auto) Seg Neutrophils % 70.3 H Seg Neuts % (Manual) Baso # (Auto) Lymphocytes % (Manual) Monocytes % (Manual) Eosinophils % (Manual) Basophils % (Manual) Seg Neutrophils # 8.0 H Seg Neutrophils # Man Lymphocytes # (Manual) Monocytes # (Manual) Eosinophils # (Manual) Nucleated RBC % Basophils # (Manual) PT INR APTT Heparin Anti-Xa Level ABG pH POC ABG pO2 ABG pO2 ABG HCO3 ABG O2 Saturation ABG Base Excess POC ABG pCO2 ABG Hemoglobin ABG Oxyhemoglobin ABG Glucose Oxyhemoglobin Sodium Potassium Chloride Carbon Dioxide BUN Creatinine Glucose POC Glucose 143 H 107 H Lactic Acid Calcium Phosphorus Magnesium AST ALT Lactate Dehydrogenase Total Bilirubin Direct Bilirubin CK-MB (CK-2) C-Reactive Protein NT-Pro-B Natriuret Pep Total Protein Albumin Arterial Blood Glucose Urine WBC (Auto) Urine Creatinine 12/02/19 12/02/19 12/02/19 05:16 06:03 11:52 WBC RBC Hgb Hct MCHC RDW MCV MCH Lymph % (Auto) [place] % (Auto) [place] # Eos # Lymph # (Auto) [place] # (Auto) Eos # (Auto) Seg Neutrophils % Seg Neuts % (Manual) Baso # (Auto) Lymphocytes % (Manual) Monocytes % (Manual) Eosinophils % (Manual) Basophils % (Manual) Seg Neutrophils # Seg Neutrophils # Man Lymphocytes # (Manual) Monocytes # (Manual) Eosinophils # (Manual) Nucleated RBC % Basophils # (Manual) PT INR APTT Heparin Anti-Xa Level ABG pH POC ABG pO2 ABG pO2 ABG HCO3 ABG O2 Saturation ABG Base Excess POC ABG pCO2 ABG Hemoglobin ABG Oxyhemoglobin ABG Glucose Oxyhemoglobin Sodium 146 H Potassium Chloride Carbon Dioxide BUN 28 H Creatinine Glucose 123 H POC Glucose 110 H 152 H Lactic Acid Calcium Phosphorus Magnesium AST ALT Lactate Dehydrogenase Total Bilirubin Direct Bilirubin CK-MB (CK-2) C-Reactive Protein NT-Pro-B Natriuret Pep Total Protein Albumin Arterial Blood Glucose Urine WBC (Auto) Urine Creatinine 12/02/19 12/02/19 12/02/19 12:58 17:58 23:36 WBC RBC Hgb Hct MCHC RDW MCV MCH Lymph % (Auto) [place] % (Auto) [place] # Eos # Lymph # (Auto) [place] # (Auto) Eos # (Auto) Seg Neutrophils % Seg Neuts % (Manual) Baso # (Auto) Lymphocytes % (Manual) Monocytes % (Manual) Eosinophils % (Manual) Basophils % (Manual) Seg Neutrophils # Seg Neutrophils # Man Lymphocytes # (Manual) Monocytes # (Manual) Eosinophils # (Manual) Nucleated RBC % Basophils # (Manual) PT INR APTT Heparin Anti-Xa Level ABG pH POC ABG pO2 78.1 L ABG pO2 ABG HCO3 ABG O2 Saturation ABG Base Excess POC ABG pCO2 ABG Hemoglobin ABG Oxyhemoglobin ABG Glucose Oxyhemoglobin Sodium Potassium Chloride Carbon Dioxide BUN Creatinine Glucose POC Glucose 120 H 123 H Lactic Acid Calcium Phosphorus Magnesium AST ALT Lactate Dehydrogenase Total Bilirubin Direct Bilirubin CK-MB (CK-2) C-Reactive Protein NT-Pro-B Natriuret Pep Total Protein Albumin Arterial Blood Glucose Urine WBC (Auto) Urine Creatinine 12/03/19 12/03/19 12/03/19 06:03 06:14 11:46 WBC RBC Hgb Hct MCHC RDW MCV MCH Lymph % (Auto) [place] % (Auto) [place] # Eos # Lymph # (Auto) [place] # (Auto) Eos # (Auto) Seg Neutrophils % Seg Neuts % (Manual) Baso # (Auto) Lymphocytes % (Manual) Monocytes % (Manual) Eosinophils % (Manual) Basophils % (Manual) Seg Neutrophils # Seg Neutrophils # Man Lymphocytes # (Manual) Monocytes # (Manual) Eosinophils # (Manual) Nucleated RBC % Basophils # (Manual) PT INR APTT Heparin Anti-Xa Level ABG pH POC ABG pO2 ABG pO2 ABG HCO3 ABG O2 Saturation ABG Base Excess POC ABG pCO2 ABG Hemoglobin ABG Oxyhemoglobin ABG Glucose Oxyhemoglobin Sodium Potassium Chloride Carbon Dioxide BUN Creatinine Glucose POC Glucose 142 H 130 H Lactic Acid Calcium Phosphorus Magnesium AST ALT Lactate Dehydrogenase Total Bilirubin Direct Bilirubin CK-MB (CK-2) C-Reactive Protein NT-Pro-B Natriuret Pep Total Protein Albumin Arterial Blood Glucose Urine WBC (Auto) 8.0 H Urine Creatinine 12/03/19 12/03/19 12/04/19 15:50 17:39 00:04 WBC RBC Hgb Hct MCHC RDW MCV MCH Lymph % (Auto) [place] % (Auto) [place] # Eos # Lymph # (Auto) [place] # (Auto) Eos # (Auto) Seg Neutrophils % Seg Neuts % (Manual) Baso # (Auto) Lymphocytes % (Manual) Monocytes % (Manual) Eosinophils % (Manual) Basophils % (Manual) Seg Neutrophils # Seg Neutrophils # Man Lymphocytes # (Manual) Monocytes # (Manual) Eosinophils # (Manual) Nucleated RBC % Basophils # (Manual) PT INR APTT Heparin Anti-Xa Level ABG pH POC ABG pO2 ABG pO2 ABG HCO3 ABG O2 Saturation ABG Base Excess POC ABG pCO2 ABG Hemoglobin ABG Oxyhemoglobin ABG Glucose Oxyhemoglobin Sodium Potassium Chloride Carbon Dioxide BUN Creatinine Glucose POC Glucose 146 H 133 H Lactic Acid Calcium Phosphorus 2.40 L Magnesium AST ALT Lactate Dehydrogenase Total Bilirubin Direct Bilirubin CK-MB (CK-2) C-Reactive Protein NT-Pro-B Natriuret Pep Total Protein Albumin Arterial Blood Glucose Urine WBC (Auto) Urine Creatinine 12/04/19 12/04/19 12/04/19 03:58 03:58 05:22 WBC 12.5 H RBC Hgb 11.2 L Hct 35.2 L MCHC RDW 16.0 H MCV MCH Lymph % (Auto) [place] % (Auto) 9.6 H [place] # 1.2 H Eos # 0.5 H Lymph # (Auto) [place] # (Auto) Eos # (Auto) Seg Neutrophils % Seg Neuts % (Manual) Baso # (Auto) Lymphocytes % (Manual) Monocytes % (Manual) Eosinophils % (Manual) Basophils % (Manual) Seg Neutrophils # 8.6 H Seg Neutrophils # Man Lymphocytes # (Manual) Monocytes # (Manual) Eosinophils # (Manual) Nucleated RBC % Basophils # (Manual) PT INR APTT Heparin Anti-Xa Level ABG pH POC ABG pO2 ABG pO2 ABG HCO3 ABG O2 Saturation ABG Base Excess POC ABG pCO2 ABG Hemoglobin ABG Oxyhemoglobin ABG Glucose Oxyhemoglobin Sodium 146 H Potassium Chloride 108.6 H Carbon Dioxide BUN 30 H Creatinine 0.7 L Glucose 121 H POC Glucose 132 H Lactic Acid Calcium Phosphorus Magnesium AST ALT Lactate Dehydrogenase Total Bilirubin Direct Bilirubin CK-MB (CK-2) C-Reactive Protein NT-Pro-B Natriuret Pep Total Protein Albumin Arterial Blood Glucose Urine WBC (Auto) Urine Creatinine 12/04/19 12/04/19 12/05/19 13:26 18:43 00:19 WBC RBC Hgb Hct MCHC RDW MCV MCH Lymph % (Auto) [place] % (Auto) [place] # Eos # Lymph # (Auto) [place] # (Auto) Eos # (Auto) Seg Neutrophils % Seg Neuts % (Manual) Baso # (Auto) Lymphocytes % (Manual) Monocytes % (Manual) Eosinophils % (Manual) Basophils % (Manual) Seg Neutrophils # Seg Neutrophils # Man Lymphocytes # (Manual) Monocytes # (Manual) Eosinophils # (Manual) Nucleated RBC % Basophils # (Manual) PT INR APTT Heparin Anti-Xa Level ABG pH POC ABG pO2 ABG pO2 ABG HCO3 ABG O2 Saturation ABG Base Excess POC ABG pCO2 ABG Hemoglobin ABG Oxyhemoglobin ABG Glucose Oxyhemoglobin Sodium Potassium Chloride Carbon Dioxide BUN Creatinine Glucose POC Glucose 185 H 156 H 150 H Lactic Acid Calcium Phosphorus Magnesium AST ALT Lactate Dehydrogenase Total Bilirubin Direct Bilirubin CK-MB (CK-2) C-Reactive Protein NT-Pro-B Natriuret Pep Total Protein Albumin Arterial Blood Glucose Urine WBC (Auto) Urine Creatinine 12/05/19 12/05/19 12/05/19 03:37 03:37 05:14 WBC 16.3 H RBC Hgb 11.4 L Hct MCHC RDW 15.6 H MCV MCH Lymph % (Auto) 9.9 L [place] % (Auto) 9.7 H [place] # 1.6 H Eos # Lymph # (Auto) [place] # (Auto) Eos # (Auto) Seg Neutrophils % 78.0 H Seg Neuts % (Manual) Baso # (Auto) Lymphocytes % (Manual) Monocytes % (Manual) Eosinophils % (Manual) Basophils % (Manual) Seg Neutrophils # 12.7 H Seg Neutrophils # Man Lymphocytes # (Manual) Monocytes # (Manual) Eosinophils # (Manual) Nucleated RBC % Basophils # (Manual) PT INR APTT Heparin Anti-Xa Level ABG pH POC ABG pO2 ABG pO2 ABG HCO3 ABG O2 Saturation ABG Base Excess POC ABG pCO2 ABG Hemoglobin ABG Oxyhemoglobin ABG Glucose Oxyhemoglobin Sodium 146 H Potassium Chloride 107.2 H Carbon Dioxide BUN 27 H Creatinine 0.7 L Glucose 171 H POC Glucose 168 H Lactic Acid Calcium Phosphorus Magnesium AST ALT Lactate Dehydrogenase Total Bilirubin Direct Bilirubin CK-MB (CK-2) C-Reactive Protein NT-Pro-B Natriuret Pep Total Protein Albumin Arterial Blood Glucose Urine WBC (Auto) Urine Creatinine 12/05/19 12/05/19 12/05/19 12:31 18:10 23:58 WBC RBC Hgb Hct MCHC RDW MCV MCH Lymph % (Auto) [place] % (Auto) [place] # Eos # Lymph # (Auto) [place] # (Auto) Eos # (Auto) Seg Neutrophils % Seg Neuts % (Manual) Baso # (Auto) Lymphocytes % (Manual) Monocytes % (Manual) Eosinophils % (Manual) Basophils % (Manual) Seg Neutrophils # Seg Neutrophils # Man Lymphocytes # (Manual) Monocytes # (Manual) Eosinophils # (Manual) Nucleated RBC % Basophils # (Manual) PT INR APTT Heparin Anti-Xa Level ABG pH POC ABG pO2 ABG pO2 ABG HCO3 ABG O2 Saturation ABG Base Excess POC ABG pCO2 ABG Hemoglobin ABG Oxyhemoglobin ABG Glucose Oxyhemoglobin Sodium Potassium Chloride Carbon Dioxide BUN Creatinine Glucose POC Glucose 159 H 198 H 115 H Lactic Acid Calcium Phosphorus Magnesium AST ALT Lactate Dehydrogenase Total Bilirubin Direct Bilirubin CK-MB (CK-2) C-Reactive Protein NT-Pro-B Natriuret Pep Total Protein Albumin Arterial Blood Glucose Urine WBC (Auto) Urine Creatinine 12/06/19 12/06/19 12/06/19 05:24 05:24 05:25 WBC 14.9 H RBC Hgb 10.8 L Hct 34.0 L MCHC RDW 15.6 H MCV MCH Lymph % (Auto) 10.7 L [place] % (Auto) 8.3 H [place] # 1.2 H Eos # Lymph # (Auto) [place] # (Auto) Eos # (Auto) Seg Neutrophils % 78.7 H Seg Neuts % (Manual) Baso # (Auto) Lymphocytes % (Manual) Monocytes % (Manual) Eosinophils % (Manual) Basophils % (Manual) Seg Neutrophils # 11.7 H Seg Neutrophils # Man Lymphocytes # (Manual) Monocytes # (Manual) Eosinophils # (Manual) Nucleated RBC % Basophils # (Manual) PT INR APTT Heparin Anti-Xa Level ABG pH POC ABG pO2 ABG pO2 ABG HCO3 ABG O2 Saturation ABG Base Excess POC ABG pCO2 ABG Hemoglobin ABG Oxyhemoglobin ABG Glucose Oxyhemoglobin Sodium 148 H Potassium 5.1 H Chloride 107.6 H Carbon Dioxide BUN 27 H Creatinine 0.7 L Glucose 155 H POC Glucose 157 H Lactic Acid Calcium Phosphorus Magnesium AST ALT Lactate Dehydrogenase Total Bilirubin Direct Bilirubin CK-MB (CK-2) C-Reactive Protein NT-Pro-B Natriuret Pep Total Protein Albumin Arterial Blood Glucose Urine WBC (Auto) Urine Creatinine 12/07/19 12/07/19 12/07/19 00:13 05:34 11:33 WBC RBC Hgb Hct MCHC RDW MCV MCH Lymph % (Auto) [place] % (Auto) [place] # Eos # Lymph # (Auto) [place] # (Auto) Eos # (Auto) Seg Neutrophils % Seg Neuts % (Manual) Baso # (Auto) Lymphocytes % (Manual) Monocytes % (Manual) Eosinophils % (Manual) Basophils % (Manual) Seg Neutrophils # Seg Neutrophils # Man Lymphocytes # (Manual) Monocytes # (Manual) Eosinophils # (Manual) Nucleated RBC % Basophils # (Manual) PT INR APTT Heparin Anti-Xa Level ABG pH POC ABG pO2 ABG pO2 ABG HCO3 ABG O2 Saturation ABG Base Excess POC ABG pCO2 ABG Hemoglobin ABG Oxyhemoglobin ABG Glucose Oxyhemoglobin Sodium Potassium Chloride Carbon Dioxide BUN Creatinine Glucose POC Glucose 142 H 111 H 169 H Lactic Acid Calcium Phosphorus Magnesium AST ALT Lactate Dehydrogenase Total Bilirubin Direct Bilirubin CK-MB (CK-2) C-Reactive Protein NT-Pro-B Natriuret Pep Total Protein Albumin Arterial Blood Glucose Urine WBC (Auto) Urine Creatinine 12/07/19 12/07/19 12/07/19 12:41 13:25 18:19 WBC 12.4 H RBC 3.53 L Hgb 10.2 L Hct 32.1 L MCHC RDW 15.3 H MCV MCH Lymph % (Auto) 10.6 L [place] % (Auto) 7.8 H [place] # 1.0 H Eos # Lymph # (Auto) [place] # (Auto) Eos # (Auto) Seg Neutrophils % 77.6 H Seg Neuts % (Manual) Baso # (Auto) Lymphocytes % (Manual) Monocytes % (Manual) Eosinophils % (Manual) Basophils % (Manual) Seg Neutrophils # 9.6 H Seg Neutrophils # Man Lymphocytes # (Manual) Monocytes # (Manual) Eosinophils # (Manual) Nucleated RBC % Basophils # (Manual) PT INR APTT Heparin Anti-Xa Level ABG pH POC ABG pO2 ABG pO2 ABG HCO3 ABG O2 Saturation ABG Base Excess POC ABG pCO2 ABG Hemoglobin ABG Oxyhemoglobin ABG Glucose Oxyhemoglobin Sodium 149 H Potassium Chloride 108.4 H Carbon Dioxide BUN 26 H Creatinine 0.6 L Glucose 149 H POC Glucose 164 H Lactic Acid Calcium Phosphorus Magnesium 2.60 H AST 121 H ALT 145 H Lactate Dehydrogenase Total Bilirubin Direct Bilirubin CK-MB (CK-2) C-Reactive Protein NT-Pro-B Natriuret Pep Total Protein Albumin 2.6 L Arterial Blood Glucose Urine WBC (Auto) Urine Creatinine 12/07/19 12/08/19 12/08/19 22:25 00:02 03:55 WBC 13.3 H RBC 3.40 L Hgb 9.7 L Hct 30.8 L MCHC 31 L RDW 15.5 H MCV MCH Lymph % (Auto) [place] % (Auto) 8.1 H [place] # 1.1 H Eos # Lymph # (Auto) [place] # (Auto) Eos # (Auto) Seg Neutrophils % 73.0 H Seg Neuts % (Manual) Baso # (Auto) Lymphocytes % (Manual) Monocytes % (Manual) Eosinophils % (Manual) Basophils % (Manual) Seg Neutrophils # 9.7 H Seg Neutrophils # Man Lymphocytes # (Manual) Monocytes # (Manual) Eosinophils # (Manual) Nucleated RBC % Basophils # (Manual) PT INR APTT Heparin Anti-Xa Level 0.12 L ABG pH POC ABG pO2 ABG pO2 ABG HCO3 ABG O2 Saturation ABG Base Excess POC ABG pCO2 ABG Hemoglobin ABG Oxyhemoglobin ABG Glucose Oxyhemoglobin Sodium Potassium Chloride Carbon Dioxide BUN Creatinine Glucose POC Glucose 151 H Lactic Acid Calcium Phosphorus Magnesium AST ALT Lactate Dehydrogenase Total Bilirubin Direct Bilirubin CK-MB (CK-2) C-Reactive Protein NT-Pro-B Natriuret Pep Total Protein Albumin Arterial Blood Glucose Urine WBC (Auto) Urine Creatinine 12/08/19 12/08/19 12/08/19 03:55 05:21 06:01 WBC RBC Hgb Hct MCHC RDW MCV MCH Lymph % (Auto) [place] % (Auto) [place] # Eos # Lymph # (Auto) [place] # (Auto) Eos # (Auto) Seg Neutrophils % Seg Neuts % (Manual) Baso # (Auto) Lymphocytes % (Manual) Monocytes % (Manual) Eosinophils % (Manual) Basophils % (Manual) Seg Neutrophils # Seg Neutrophils # Man Lymphocytes # (Manual) Monocytes # (Manual) Eosinophils # (Manual) Nucleated RBC % Basophils # (Manual) PT INR APTT Heparin Anti-Xa Level 0.20 L ABG pH POC ABG pO2 ABG pO2 ABG HCO3 ABG O2 Saturation ABG Base Excess POC ABG pCO2 ABG Hemoglobin ABG Oxyhemoglobin ABG Glucose Oxyhemoglobin Sodium 149 H Potassium Chloride 108.0 H Carbon Dioxide BUN 28 H Creatinine 0.6 L Glucose 144 H POC Glucose 143 H Lactic Acid Calcium Phosphorus Magnesium AST 98 H ALT 145 H Lactate Dehydrogenase Total Bilirubin Direct Bilirubin CK-MB (CK-2) C-Reactive Protein NT-Pro-B Natriuret Pep Total Protein 6.0 L Albumin 2.4 L Arterial Blood Glucose Urine WBC (Auto) Urine Creatinine 12/08/19 12/08/19 12/08/19 12:08 18:11 23:53 WBC RBC Hgb Hct MCHC RDW MCV MCH Lymph % (Auto) [place] % (Auto) [place] # Eos # Lymph # (Auto) [place] # (Auto) Eos # (Auto) Seg Neutrophils % Seg Neuts % (Manual) Baso # (Auto) Lymphocytes % (Manual) Monocytes % (Manual) Eosinophils % (Manual) Basophils % (Manual) Seg Neutrophils # Seg Neutrophils # Man Lymphocytes # (Manual) Monocytes # (Manual) Eosinophils # (Manual) Nucleated RBC % Basophils # (Manual) PT INR APTT Heparin Anti-Xa Level ABG pH POC ABG pO2 ABG pO2 ABG HCO3 ABG O2 Saturation ABG Base Excess POC ABG pCO2 ABG Hemoglobin ABG Oxyhemoglobin ABG Glucose Oxyhemoglobin Sodium Potassium Chloride Carbon Dioxide BUN Creatinine Glucose POC Glucose 172 H 122 H 162 H Lactic Acid Calcium Phosphorus Magnesium AST ALT Lactate Dehydrogenase Total Bilirubin Direct Bilirubin CK-MB (CK-2) C-Reactive Protein NT-Pro-B Natriuret Pep Total Protein Albumin Arterial Blood Glucose Urine WBC (Auto) Urine Creatinine 12/09/19 12/09/19 12/09/19 04:03 04:03 05:53 WBC RBC Hgb 9.1 L Hct 28.9 L MCHC RDW MCV MCH Lymph % (Auto) [place] % (Auto) [place] # Eos # Lymph # (Auto) [place] # (Auto) Eos # (Auto) Seg Neutrophils % Seg Neuts % (Manual) Baso # (Auto) Lymphocytes % (Manual) Monocytes % (Manual) Eosinophils % (Manual) Basophils % (Manual) Seg Neutrophils # Seg Neutrophils # Man Lymphocytes # (Manual) Monocytes # (Manual) Eosinophils # (Manual) Nucleated RBC % Basophils # (Manual) PT INR APTT Heparin Anti-Xa Level 0.15 L ABG pH POC ABG pO2 ABG pO2 ABG HCO3 ABG O2 Saturation ABG Base Excess POC ABG pCO2 ABG Hemoglobin ABG Oxyhemoglobin ABG Glucose Oxyhemoglobin Sodium Potassium Chloride Carbon Dioxide BUN Creatinine Glucose POC Glucose 124 H Lactic Acid Calcium Phosphorus Magnesium AST ALT Lactate Dehydrogenase Total Bilirubin Direct Bilirubin CK-MB (CK-2) C-Reactive Protein NT-Pro-B Natriuret Pep Total Protein Albumin Arterial Blood Glucose Urine WBC (Auto) Urine Creatinine 12/09/19 12/09/19 12/10/19 09:43 12:41 00:13 WBC RBC Hgb Hct MCHC RDW MCV MCH Lymph % (Auto) [place] % (Auto) [place] # Eos # Lymph # (Auto) [place] # (Auto) Eos # (Auto) Seg Neutrophils % Seg Neuts % (Manual) Baso # (Auto) Lymphocytes % (Manual) Monocytes % (Manual) Eosinophils % (Manual) Basophils % (Manual) Seg Neutrophils # Seg Neutrophils # Man Lymphocytes # (Manual) Monocytes # (Manual) Eosinophils # (Manual) Nucleated RBC % Basophils # (Manual) PT INR APTT Heparin Anti-Xa Level ABG pH POC ABG pO2 ABG pO2 ABG HCO3 ABG O2 Saturation ABG Base Excess POC ABG pCO2 ABG Hemoglobin ABG Oxyhemoglobin ABG Glucose Oxyhemoglobin Sodium Potassium Chloride Carbon Dioxide BUN 25 H Creatinine 0.6 L Glucose 131 H POC Glucose 109 H 120 H Lactic Acid Calcium Phosphorus Magnesium AST ALT Lactate Dehydrogenase Total Bilirubin Direct Bilirubin CK-MB (CK-2) C-Reactive Protein NT-Pro-B Natriuret Pep Total Protein Albumin Arterial Blood Glucose Urine WBC (Auto) Urine Creatinine 12/10/19 12/10/19 12/10/19 04:14 04:14 12:00 WBC 13.3 H RBC 3.34 L Hgb 9.6 L Hct 30.4 L MCHC RDW 15.4 H MCV MCH Lymph % (Auto) [place] % (Auto) [place] # Eos # Lymph # (Auto) [place] # (Auto) Eos # (Auto) Seg Neutrophils % Seg Neuts % (Manual) 75.0 H Baso # (Auto) Lymphocytes % (Manual) 13.0 L Monocytes % (Manual) 8.0 H Eosinophils % (Manual) Basophils % (Manual) 2.0 H Seg Neutrophils # Seg Neutrophils # Man 10.0 H Lymphocytes # (Manual) Monocytes # (Manual) 1.1 H Eosinophils # (Manual) Nucleated RBC % Basophils # (Manual) 0.3 H PT INR APTT Heparin Anti-Xa Level ABG pH POC ABG pO2 ABG pO2 ABG HCO3 ABG O2 Saturation ABG Base Excess POC ABG pCO2 ABG Hemoglobin ABG Oxyhemoglobin ABG Glucose Oxyhemoglobin Sodium 147 H Potassium Chloride 108.3 H Carbon Dioxide BUN 21 H Creatinine 0.6 L Glucose 104 H POC Glucose 133 H Lactic Acid Calcium Phosphorus Magnesium AST ALT Lactate Dehydrogenase Total Bilirubin Direct Bilirubin CK-MB (CK-2) C-Reactive Protein NT-Pro-B Natriuret Pep Total Protein Albumin Arterial Blood Glucose Urine WBC (Auto) Urine Creatinine 12/10/19 12/10/19 12/11/19 18:44 21:20 00:08 WBC 14.9 H RBC 3.36 L Hgb 9.6 L Hct 30.5 L MCHC RDW 15.4 H MCV MCH Lymph % (Auto) [place] % (Auto) [place] # Eos # Lymph # (Auto) [place] # (Auto) Eos # (Auto) Seg Neutrophils % Seg Neuts % (Manual) Baso # (Auto) Lymphocytes % (Manual) Monocytes % (Manual) Eosinophils % (Manual) Basophils % (Manual) Seg Neutrophils # Seg Neutrophils # Man Lymphocytes # (Manual) Monocytes # (Manual) Eosinophils # (Manual) Nucleated RBC % Basophils # (Manual) PT INR APTT Heparin Anti-Xa Level ABG pH POC ABG pO2 ABG pO2 ABG HCO3 ABG O2 Saturation ABG Base Excess POC ABG pCO2 ABG Hemoglobin ABG Oxyhemoglobin ABG Glucose Oxyhemoglobin Sodium Potassium Chloride Carbon Dioxide BUN Creatinine Glucose POC Glucose 119 H 134 H Lactic Acid Calcium Phosphorus Magnesium AST ALT Lactate Dehydrogenase Total Bilirubin Direct Bilirubin CK-MB (CK-2) C-Reactive Protein NT-Pro-B Natriuret Pep Total Protein Albumin Arterial Blood Glucose Urine WBC (Auto) Urine Creatinine 12/11/19 12/11/19 12/11/19 03:54 07:28 08:36 WBC 11.9 H RBC 3.25 L Hgb 9.6 L Hct 29.2 L MCHC RDW 15.7 H MCV MCH Lymph % (Auto) [place] % (Auto) [place] # Eos # Lymph # (Auto) [place] # (Auto) Eos # (Auto) Seg Neutrophils % Seg Neuts % (Manual) Baso # (Auto) Lymphocytes % (Manual) Monocytes % (Manual) Eosinophils % (Manual) Basophils % (Manual) Seg Neutrophils # Seg Neutrophils # Man Lymphocytes # (Manual) Monocytes # (Manual) Eosinophils # (Manual) Nucleated RBC % Basophils # (Manual) PT INR APTT Heparin Anti-Xa Level 0.10 L 0.16 L ABG pH POC ABG pO2 ABG pO2 ABG HCO3 ABG O2 Saturation ABG Base Excess POC ABG pCO2 ABG Hemoglobin ABG Oxyhemoglobin ABG Glucose Oxyhemoglobin Sodium Potassium Chloride Carbon Dioxide BUN Creatinine Glucose POC Glucose Lactic Acid Calcium Phosphorus Magnesium AST ALT Lactate Dehydrogenase Total Bilirubin Direct Bilirubin CK-MB (CK-2) C-Reactive Protein NT-Pro-B Natriuret Pep Total Protein Albumin Arterial Blood Glucose Urine WBC (Auto) Urine Creatinine 12/11/19 12/11/19 12/11/19 08:36 11:45 17:15 WBC RBC Hgb Hct MCHC RDW MCV MCH Lymph % (Auto) [place] % (Auto) [place] # Eos # Lymph # (Auto) [place] # (Auto) Eos # (Auto) Seg Neutrophils % Seg Neuts % (Manual) Baso # (Auto) Lymphocytes % (Manual) Monocytes % (Manual) Eosinophils % (Manual) Basophils % (Manual) Seg Neutrophils # Seg Neutrophils # Man Lymphocytes # (Manual) Monocytes # (Manual) Eosinophils # (Manual) Nucleated RBC % Basophils # (Manual) PT INR APTT Heparin Anti-Xa Level ABG pH POC ABG pO2 ABG pO2 ABG HCO3 ABG O2 Saturation ABG Base Excess POC ABG pCO2 ABG Hemoglobin ABG Oxyhemoglobin ABG Glucose Oxyhemoglobin Sodium Potassium Chloride Carbon Dioxide BUN Creatinine 0.5 L Glucose 128 H POC Glucose 136 H 109 H Lactic Acid Calcium Phosphorus Magnesium AST ALT Lactate Dehydrogenase Total Bilirubin Direct Bilirubin CK-MB (CK-2) C-Reactive Protein NT-Pro-B Natriuret Pep Total Protein Albumin Arterial Blood Glucose Urine WBC (Auto) Urine Creatinine 12/12/19 12/12/19 12/12/19 00:03 05:53 05:53 WBC RBC Hgb 8.8 L Hct 27.6 L MCHC RDW MCV MCH Lymph % (Auto) [place] % (Auto) [place] # Eos # Lymph # (Auto) [place] # (Auto) Eos # (Auto) Seg Neutrophils % Seg Neuts % (Manual) Baso # (Auto) Lymphocytes % (Manual) Monocytes % (Manual) Eosinophils % (Manual) Basophils % (Manual) Seg Neutrophils # Seg Neutrophils # Man Lymphocytes # (Manual) Monocytes # (Manual) Eosinophils # (Manual) Nucleated RBC % Basophils # (Manual) PT INR APTT Heparin Anti-Xa Level 0.22 L ABG pH POC ABG pO2 ABG pO2 ABG HCO3 ABG O2 Saturation ABG Base Excess POC ABG pCO2 ABG Hemoglobin ABG Oxyhemoglobin ABG Glucose Oxyhemoglobin Sodium Potassium Chloride Carbon Dioxide BUN Creatinine Glucose POC Glucose 116 H Lactic Acid Calcium Phosphorus Magnesium AST ALT Lactate Dehydrogenase Total Bilirubin Direct Bilirubin CK-MB (CK-2) C-Reactive Protein NT-Pro-B Natriuret Pep Total Protein Albumin Arterial Blood Glucose Urine WBC (Auto) Urine Creatinine 12/12/19 12/12/19 12/12/19 09:38 12:18 17:44 WBC RBC Hgb Hct MCHC RDW MCV MCH Lymph % (Auto) [place] % (Auto) [place] # Eos # Lymph # (Auto) [place] # (Auto) Eos # (Auto) Seg Neutrophils % Seg Neuts % (Manual) Baso # (Auto) Lymphocytes % (Manual) Monocytes % (Manual) Eosinophils % (Manual) Basophils % (Manual) Seg Neutrophils # Seg Neutrophils # Man Lymphocytes # (Manual) Monocytes # (Manual) Eosinophils # (Manual) Nucleated RBC % Basophils # (Manual) PT INR APTT Heparin Anti-Xa Level ABG pH POC ABG pO2 ABG pO2 ABG HCO3 ABG O2 Saturation ABG Base Excess POC ABG pCO2 ABG Hemoglobin ABG Oxyhemoglobin ABG Glucose Oxyhemoglobin Sodium Potassium Chloride Carbon Dioxide BUN Creatinine Glucose POC Glucose 115 H 146 H 146 H Lactic Acid Calcium Phosphorus Magnesium AST ALT Lactate Dehydrogenase Total Bilirubin Direct Bilirubin CK-MB (CK-2) C-Reactive Protein NT-Pro-B Natriuret Pep Total Protein Albumin Arterial Blood Glucose Urine WBC (Auto) Urine Creatinine 12/12/19 12/13/19 12/13/19 23:33 05:32 05:32 WBC 13.1 H RBC 3.27 L Hgb 9.5 L Hct 29.3 L MCHC RDW 15.6 H MCV MCH Lymph % (Auto) [place] % (Auto) [place] # Eos # Lymph # (Auto) [place] # (Auto) Eos # (Auto) Seg Neutrophils % Seg Neuts % (Manual) 74.0 H Baso # (Auto) Lymphocytes % (Manual) 8.0 L Monocytes % (Manual) 9.0 H Eosinophils % (Manual) 5.0 H Basophils % (Manual) Seg Neutrophils # Seg Neutrophils # Man 9.7 H Lymphocytes # (Manual) 1.0 L Monocytes # (Manual) 1.2 H Eosinophils # (Manual) 0.7 H Nucleated RBC % Basophils # (Manual) PT INR APTT Heparin Anti-Xa Level 0.20 L ABG pH POC ABG pO2 ABG pO2 ABG HCO3 ABG O2 Saturation ABG Base Excess POC ABG pCO2 ABG Hemoglobin ABG Oxyhemoglobin ABG Glucose Oxyhemoglobin Sodium Potassium Chloride Carbon Dioxide BUN Creatinine Glucose POC Glucose 126 H Lactic Acid Calcium Phosphorus Magnesium AST ALT Lactate Dehydrogenase Total Bilirubin Direct Bilirubin CK-MB (CK-2) C-Reactive Protein NT-Pro-B Natriuret Pep Total Protein Albumin Arterial Blood Glucose Urine WBC (Auto) Urine Creatinine 12/13/19 12/13/19 12/13/19 05:32 05:46 11:57 WBC RBC Hgb Hct MCHC RDW MCV MCH Lymph % (Auto) [place] % (Auto) [place] # Eos # Lymph # (Auto) [place] # (Auto) Eos # (Auto) Seg Neutrophils % Seg Neuts % (Manual) Baso # (Auto) Lymphocytes % (Manual) Monocytes % (Manual) Eosinophils % (Manual) Basophils % (Manual) Seg Neutrophils # Seg Neutrophils # Man Lymphocytes # (Manual) Monocytes # (Manual) Eosinophils # (Manual) Nucleated RBC % Basophils # (Manual) PT INR APTT Heparin Anti-Xa Level ABG pH POC ABG pO2 ABG pO2 ABG HCO3 ABG O2 Saturation ABG Base Excess POC ABG pCO2 ABG Hemoglobin ABG Oxyhemoglobin ABG Glucose Oxyhemoglobin Sodium Potassium Chloride Carbon Dioxide 31 H BUN Creatinine 0.6 L Glucose 114 H POC Glucose 118 H 133 H Lactic Acid Calcium Phosphorus Magnesium AST ALT Lactate Dehydrogenase Total Bilirubin Direct Bilirubin CK-MB (CK-2) C-Reactive Protein NT-Pro-B Natriuret Pep Total Protein Albumin Arterial Blood Glucose Urine WBC (Auto) Urine Creatinine 12/13/19 12/13/19 12/14/19 17:44 23:46 05:32 WBC RBC Hgb Hct MCHC RDW MCV MCH Lymph % (Auto) [place] % (Auto) [place] # Eos # Lymph # (Auto) [place] # (Auto) Eos # (Auto) Seg Neutrophils % Seg Neuts % (Manual) Baso # (Auto) Lymphocytes % (Manual) Monocytes % (Manual) Eosinophils % (Manual) Basophils % (Manual) Seg Neutrophils # Seg Neutrophils # Man Lymphocytes # (Manual) Monocytes # (Manual) Eosinophils # (Manual) Nucleated RBC % Basophils # (Manual) PT INR APTT Heparin Anti-Xa Level ABG pH POC ABG pO2 ABG pO2 ABG HCO3 ABG O2 Saturation ABG Base Excess POC ABG pCO2 ABG Hemoglobin ABG Oxyhemoglobin ABG Glucose Oxyhemoglobin Sodium Potassium Chloride Carbon Dioxide BUN Creatinine Glucose POC Glucose 161 H 126 H 139 H Lactic Acid Calcium Phosphorus Magnesium AST ALT Lactate Dehydrogenase Total Bilirubin Direct Bilirubin CK-MB (CK-2) C-Reactive Protein NT-Pro-B Natriuret Pep Total Protein Albumin Arterial Blood Glucose Urine WBC (Auto) Urine Creatinine 12/14/19 12/14/19 12/14/19 06:03 06:03 09:37 WBC RBC Hgb 9.6 L Hct 30.4 L MCHC RDW MCV MCH Lymph % (Auto) [place] % (Auto) [place] # Eos # Lymph # (Auto) [place] # (Auto) Eos # (Auto) Seg Neutrophils % Seg Neuts % (Manual) Baso # (Auto) Lymphocytes % (Manual) Monocytes % (Manual) Eosinophils % (Manual) Basophils % (Manual) Seg Neutrophils # Seg Neutrophils # Man Lymphocytes # (Manual) Monocytes # (Manual) Eosinophils # (Manual) Nucleated RBC % Basophils # (Manual) PT INR APTT Heparin Anti-Xa Level 0.24 L ABG pH POC ABG pO2 ABG pO2 ABG HCO3 ABG O2 Saturation ABG Base Excess POC ABG pCO2 ABG Hemoglobin ABG Oxyhemoglobin ABG Glucose Oxyhemoglobin Sodium Potassium Chloride Carbon Dioxide BUN Creatinine 0.6 L Glucose 162 H POC Glucose Lactic Acid Calcium Phosphorus Magnesium AST 71 H ALT 118 H Lactate Dehydrogenase Total Bilirubin Direct Bilirubin CK-MB (CK-2) C-Reactive Protein NT-Pro-B Natriuret Pep Total Protein 6.2 L Albumin 2.3 L Arterial Blood Glucose Urine WBC (Auto) Urine Creatinine 12/14/19 12/14/19 12/15/19 12:06 18:18 00:19 WBC RBC Hgb Hct MCHC RDW MCV MCH Lymph % (Auto) [place] % (Auto) [place] # Eos # Lymph # (Auto) [place] # (Auto) Eos # (Auto) Seg Neutrophils % Seg Neuts % (Manual) Baso # (Auto) Lymphocytes % (Manual) Monocytes % (Manual) Eosinophils % (Manual) Basophils % (Manual) Seg Neutrophils # Seg Neutrophils # Man Lymphocytes # (Manual) Monocytes # (Manual) Eosinophils # (Manual) Nucleated RBC % Basophils # (Manual) PT INR APTT Heparin Anti-Xa Level ABG pH POC ABG pO2 ABG pO2 ABG HCO3 ABG O2 Saturation ABG Base Excess POC ABG pCO2 ABG Hemoglobin ABG Oxyhemoglobin ABG Glucose Oxyhemoglobin Sodium Potassium Chloride Carbon Dioxide BUN Creatinine Glucose POC Glucose 147 H 166 H 123 H Lactic Acid Calcium Phosphorus Magnesium AST ALT Lactate Dehydrogenase Total Bilirubin Direct Bilirubin CK-MB (CK-2) C-Reactive Protein NT-Pro-B Natriuret Pep Total Protein Albumin Arterial Blood Glucose Urine WBC (Auto) Urine Creatinine 12/15/19 12/15/19 12/15/19 05:28 05:29 05:29 WBC 14.9 H RBC 3.19 L Hgb 9.1 L Hct 28.7 L MCHC RDW 16.0 H MCV MCH Lymph % (Auto) [place] % (Auto) [place] # Eos # Lymph # (Auto) [place] # (Auto) Eos # (Auto) Seg Neutrophils % Seg Neuts % (Manual) Baso # (Auto) Lymphocytes % (Manual) Monocytes % (Manual) Eosinophils % (Manual) Basophils % (Manual) Seg Neutrophils # Seg Neutrophils # Man Lymphocytes # (Manual) Monocytes # (Manual) Eosinophils # (Manual) Nucleated RBC % Basophils # (Manual) PT INR APTT Heparin Anti-Xa Level 0.19 L ABG pH POC ABG pO2 ABG pO2 ABG HCO3 ABG O2 Saturation ABG Base Excess POC ABG pCO2 ABG Hemoglobin ABG Oxyhemoglobin ABG Glucose Oxyhemoglobin Sodium Potassium Chloride Carbon Dioxide BUN Creatinine 0.6 L Glucose 110 H POC Glucose Lactic Acid Calcium Phosphorus Magnesium AST ALT Lactate Dehydrogenase Total Bilirubin Direct Bilirubin CK-MB (CK-2) C-Reactive Protein NT-Pro-B Natriuret Pep Total Protein Albumin Arterial Blood Glucose Urine WBC (Auto) Urine Creatinine 12/15/19 12/15/19 12/15/19 05:53 11:50 17:26 WBC RBC Hgb Hct MCHC RDW MCV MCH Lymph % (Auto) [place] % (Auto) [place] # Eos # Lymph # (Auto) [place] # (Auto) Eos # (Auto) Seg Neutrophils % Seg Neuts % (Manual) Baso # (Auto) Lymphocytes % (Manual) Monocytes % (Manual) Eosinophils % (Manual) Basophils % (Manual) Seg Neutrophils # Seg Neutrophils # Man Lymphocytes # (Manual) Monocytes # (Manual) Eosinophils # (Manual) Nucleated RBC % Basophils # (Manual) PT INR APTT Heparin Anti-Xa Level ABG pH POC ABG pO2 ABG pO2 ABG HCO3 ABG O2 Saturation ABG Base Excess POC ABG pCO2 ABG Hemoglobin ABG Oxyhemoglobin ABG Glucose Oxyhemoglobin Sodium Potassium Chloride Carbon Dioxide BUN Creatinine Glucose POC Glucose 119 H 132 H 128 H Lactic Acid Calcium Phosphorus Magnesium AST ALT Lactate Dehydrogenase Total Bilirubin Direct Bilirubin CK-MB (CK-2) C-Reactive Protein NT-Pro-B Natriuret Pep Total Protein Albumin Arterial Blood Glucose Urine WBC (Auto) Urine Creatinine 12/15/19 12/16/19 12/16/19 23:11 05:30 05:46 WBC RBC Hgb 8.8 L Hct 27.9 L MCHC RDW MCV MCH Lymph % (Auto) [place] % (Auto) [place] # Eos # Lymph # (Auto) [place] # (Auto) Eos # (Auto) Seg Neutrophils % Seg Neuts % (Manual) Baso # (Auto) Lymphocytes % (Manual) Monocytes % (Manual) Eosinophils % (Manual) Basophils % (Manual) Seg Neutrophils # Seg Neutrophils # Man Lymphocytes # (Manual) Monocytes # (Manual) Eosinophils # (Manual) Nucleated RBC % Basophils # (Manual) PT INR APTT Heparin Anti-Xa Level ABG pH POC ABG pO2 ABG pO2 ABG HCO3 ABG O2 Saturation ABG Base Excess POC ABG pCO2 ABG Hemoglobin ABG Oxyhemoglobin ABG Glucose Oxyhemoglobin Sodium Potassium Chloride Carbon Dioxide BUN Creatinine Glucose POC Glucose 150 H 134 H Lactic Acid Calcium Phosphorus Magnesium AST ALT Lactate Dehydrogenase Total Bilirubin Direct Bilirubin CK-MB (CK-2) C-Reactive Protein NT-Pro-B Natriuret Pep Total Protein Albumin Arterial Blood Glucose Urine WBC (Auto) Urine Creatinine 12/16/19 12/16/19 12/16/19 05:46 05:46 11:44 WBC RBC Hgb Hct MCHC RDW MCV MCH Lymph % (Auto) [place] % (Auto) [place] # Eos # Lymph # (Auto) [place] # (Auto) Eos # (Auto) Seg Neutrophils % Seg Neuts % (Manual) Baso # (Auto) Lymphocytes % (Manual) Monocytes % (Manual) Eosinophils % (Manual) Basophils % (Manual) Seg Neutrophils # Seg Neutrophils # Man Lymphocytes # (Manual) Monocytes # (Manual) Eosinophils # (Manual) Nucleated RBC % Basophils # (Manual) PT INR APTT Heparin Anti-Xa Level 0.20 L ABG pH POC ABG pO2 ABG pO2 ABG HCO3 ABG O2 Saturation ABG Base Excess POC ABG pCO2 ABG Hemoglobin ABG Oxyhemoglobin ABG Glucose Oxyhemoglobin Sodium Potassium Chloride Carbon Dioxide 31 H BUN Creatinine 0.5 L Glucose 147 H POC Glucose 164 H Lactic Acid Calcium Phosphorus Magnesium AST ALT Lactate Dehydrogenase Total Bilirubin Direct Bilirubin CK-MB (CK-2) C-Reactive Protein NT-Pro-B Natriuret Pep Total Protein Albumin Arterial Blood Glucose Urine WBC (Auto) Urine Creatinine 12/16/19 12/16/19 12/17/19 17:17 23:49 05:30 WBC 13.9 H RBC 3.27 L Hgb 9.4 L Hct 29.2 L MCHC RDW 16.0 H MCV MCH Lymph % (Auto) [place] % (Auto) 8.8 H [place] # Eos # Lymph # (Auto) [place] # (Auto) 1.2 H Eos # (Auto) 0.5 H Seg Neutrophils % 70.5 H Seg Neuts % (Manual) Baso # (Auto) 0.2 H Lymphocytes % (Manual) Monocytes % (Manual) Eosinophils % (Manual) Basophils % (Manual) Seg Neutrophils # 9.8 H Seg Neutrophils # Man Lymphocytes # (Manual) Monocytes # (Manual) Eosinophils # (Manual) Nucleated RBC % Basophils # (Manual) PT INR APTT Heparin Anti-Xa Level ABG pH POC ABG pO2 ABG pO2 ABG HCO3 ABG O2 Saturation ABG Base Excess POC ABG pCO2 ABG Hemoglobin ABG Oxyhemoglobin ABG Glucose Oxyhemoglobin Sodium Potassium Chloride Carbon Dioxide BUN Creatinine Glucose POC Glucose 162 H 144 H Lactic Acid Calcium Phosphorus Magnesium AST ALT Lactate Dehydrogenase Total Bilirubin Direct Bilirubin CK-MB (CK-2) C-Reactive Protein NT-Pro-B Natriuret Pep Total Protein Albumin Arterial Blood Glucose Urine WBC (Auto) Urine Creatinine 12/17/19 12/17/19 12/17/19 05:30 06:06 11:50 WBC RBC Hgb Hct MCHC RDW MCV MCH Lymph % (Auto) [place] % (Auto) [place] # Eos # Lymph # (Auto) [place] # (Auto) Eos # (Auto) Seg Neutrophils % Seg Neuts % (Manual) Baso # (Auto) Lymphocytes % (Manual) Monocytes % (Manual) Eosinophils % (Manual) Basophils % (Manual) Seg Neutrophils # Seg Neutrophils # Man Lymphocytes # (Manual) Monocytes # (Manual) Eosinophils # (Manual) Nucleated RBC % Basophils # (Manual) PT INR APTT Heparin Anti-Xa Level ABG pH POC ABG pO2 ABG pO2 ABG HCO3 ABG O2 Saturation ABG Base Excess POC ABG pCO2 ABG Hemoglobin ABG Oxyhemoglobin ABG Glucose Oxyhemoglobin Sodium Potassium Chloride 97.4 L Carbon Dioxide 32 H BUN Creatinine 0.5 L Glucose 135 H POC Glucose 151 H 140 H Lactic Acid Calcium Phosphorus Magnesium AST ALT Lactate Dehydrogenase Total Bilirubin Direct Bilirubin CK-MB (CK-2) C-Reactive Protein NT-Pro-B Natriuret Pep Total Protein Albumin Arterial Blood Glucose Urine WBC (Auto) Urine Creatinine 12/17/19 12/17/19 12/18/19 17:50 23:46 05:17 WBC RBC Hgb 8.8 L Hct 28.0 L MCHC RDW MCV MCH Lymph % (Auto) [place] % (Auto) [place] # Eos # Lymph # (Auto) [place] # (Auto) Eos # (Auto) Seg Neutrophils % Seg Neuts % (Manual) Baso # (Auto) Lymphocytes % (Manual) Monocytes % (Manual) Eosinophils % (Manual) Basophils % (Manual) Seg Neutrophils # Seg Neutrophils # Man Lymphocytes # (Manual) Monocytes # (Manual) Eosinophils # (Manual) Nucleated RBC % Basophils # (Manual) PT INR APTT Heparin Anti-Xa Level ABG pH POC ABG pO2 ABG pO2 ABG HCO3 ABG O2 Saturation ABG Base Excess POC ABG pCO2 ABG Hemoglobin ABG Oxyhemoglobin ABG Glucose Oxyhemoglobin Sodium Potassium Chloride Carbon Dioxide BUN Creatinine Glucose POC Glucose 158 H 150 H Lactic Acid Calcium Phosphorus Magnesium AST ALT Lactate Dehydrogenase Total Bilirubin Direct Bilirubin CK-MB (CK-2) C-Reactive Protein NT-Pro-B Natriuret Pep Total Protein Albumin Arterial Blood Glucose Urine WBC (Auto) Urine Creatinine 12/18/19 12/18/19 12/18/19 05:17 05:49 11:12 WBC RBC Hgb Hct MCHC RDW MCV MCH Lymph % (Auto) [place] % (Auto) [place] # Eos # Lymph # (Auto) [place] # (Auto) Eos # (Auto) Seg Neutrophils % Seg Neuts % (Manual) Baso # (Auto) Lymphocytes % (Manual) Monocytes % (Manual) Eosinophils % (Manual) Basophils % (Manual) Seg Neutrophils # Seg Neutrophils # Man Lymphocytes # (Manual) Monocytes # (Manual) Eosinophils # (Manual) Nucleated RBC % Basophils # (Manual) PT INR APTT Heparin Anti-Xa Level 0.16 L ABG pH POC ABG pO2 ABG pO2 ABG HCO3 ABG O2 Saturation ABG Base Excess POC ABG pCO2 ABG Hemoglobin ABG Oxyhemoglobin ABG Glucose Oxyhemoglobin Sodium Potassium Chloride Carbon Dioxide BUN Creatinine Glucose POC Glucose 127 H 191 H Lactic Acid Calcium Phosphorus Magnesium AST ALT Lactate Dehydrogenase Total Bilirubin Direct Bilirubin CK-MB (CK-2) C-Reactive Protein NT-Pro-B Natriuret Pep Total Protein Albumin Arterial Blood Glucose Urine WBC (Auto) Urine Creatinine 12/18/19 12/18/19 12/19/19 17:03 20:16 00:08 WBC RBC Hgb Hct MCHC RDW MCV MCH Lymph % (Auto) [place] % (Auto) [place] # Eos # Lymph # (Auto) [place] # (Auto) Eos # (Auto) Seg Neutrophils % Seg Neuts % (Manual) Baso # (Auto) Lymphocytes % (Manual) Monocytes % (Manual) Eosinophils % (Manual) Basophils % (Manual) Seg Neutrophils # Seg Neutrophils # Man Lymphocytes # (Manual) Monocytes # (Manual) Eosinophils # (Manual) Nucleated RBC % Basophils # (Manual) PT INR APTT Heparin Anti-Xa Level ABG pH POC ABG pO2 ABG pO2 ABG HCO3 ABG O2 Saturation ABG Base Excess POC ABG pCO2 ABG Hemoglobin ABG Oxyhemoglobin ABG Glucose Oxyhemoglobin Sodium Potassium Chloride Carbon Dioxide BUN Creatinine Glucose POC Glucose 133 H 128 H 129 H Lactic Acid Calcium Phosphorus Magnesium AST ALT Lactate Dehydrogenase Total Bilirubin Direct Bilirubin CK-MB (CK-2) C-Reactive Protein NT-Pro-B Natriuret Pep Total Protein Albumin Arterial Blood Glucose Urine WBC (Auto) Urine Creatinine 12/19/19 12/19/19 12/19/19 04:45 04:45 05:35 WBC RBC Hgb Hct MCHC RDW MCV MCH Lymph % (Auto) [place] % (Auto) [place] # Eos # Lymph # (Auto) [place] # (Auto) Eos # (Auto) Seg Neutrophils % Seg Neuts % (Manual) Baso # (Auto) Lymphocytes % (Manual) Monocytes % (Manual) Eosinophils % (Manual) Basophils % (Manual) Seg Neutrophils # Seg Neutrophils # Man Lymphocytes # (Manual) Monocytes # (Manual) Eosinophils # (Manual) Nucleated RBC % Basophils # (Manual) PT INR APTT Heparin Anti-Xa Level 0.17 L ABG pH POC ABG pO2 ABG pO2 ABG HCO3 ABG O2 Saturation ABG Base Excess POC ABG pCO2 ABG Hemoglobin ABG Oxyhemoglobin ABG Glucose Oxyhemoglobin Sodium Potassium Chloride Carbon Dioxide BUN Creatinine Glucose POC Glucose 120 H Lactic Acid Calcium Phosphorus Magnesium AST ALT Lactate Dehydrogenase 228 H Total Bilirubin Direct Bilirubin CK-MB (CK-2) C-Reactive Protein NT-Pro-B Natriuret Pep Total Protein Albumin Arterial Blood Glucose Urine WBC (Auto) Urine Creatinine 12/19/19 12/19/19 12/19/19 09:20 11:32 11:32 WBC 14.6 H RBC 3.08 L Hgb 9.0 L Hct 26.8 L MCHC RDW 15.9 H MCV MCH Lymph % (Auto) [place] % (Auto) [place] # Eos # Lymph # (Auto) [place] # (Auto) Eos # (Auto) Seg Neutrophils % Seg Neuts % (Manual) 82.0 H Baso # (Auto) Lymphocytes % (Manual) 10.0 L Monocytes % (Manual) Eosinophils % (Manual) Basophils % (Manual) Seg Neutrophils # Seg Neutrophils # Man 12.0 H Lymphocytes # (Manual) Monocytes # (Manual) 0.9 H Eosinophils # (Manual) Nucleated RBC % 1.0 H Basophils # (Manual) PT INR APTT Heparin Anti-Xa Level ABG pH 7.451 H POC ABG pO2 ABG pO2 62.6 L ABG HCO3 33.2 H ABG O2 Saturation 93.8 L ABG Base Excess 8.3 H POC ABG pCO2 ABG Hemoglobin 8.3 L ABG Oxyhemoglobin ABG Glucose Oxyhemoglobin 91.9 L Sodium Potassium Chloride 95.0 L Carbon Dioxide 33 H BUN 22 H Creatinine 0.6 L Glucose 150 H POC Glucose Lactic Acid Calcium Phosphorus Magnesium AST ALT Lactate Dehydrogenase Total Bilirubin Direct Bilirubin CK-MB (CK-2) C-Reactive Protein NT-Pro-B Natriuret Pep Total Protein 6.2 L Albumin 2.4 L Arterial Blood Glucose Urine WBC (Auto) Urine Creatinine 12/19/19 12/19/19 12/20/19 11:56 18:17 00:09 WBC RBC Hgb Hct MCHC RDW MCV MCH Lymph % (Auto) [place] % (Auto) [place] # Eos # Lymph # (Auto) [place] # (Auto) Eos # (Auto) Seg Neutrophils % Seg Neuts % (Manual) Baso # (Auto) Lymphocytes % (Manual) Monocytes % (Manual) Eosinophils % (Manual) Basophils % (Manual) Seg Neutrophils # Seg Neutrophils # Man Lymphocytes # (Manual) Monocytes # (Manual) Eosinophils # (Manual) Nucleated RBC % Basophils # (Manual) PT INR APTT Heparin Anti-Xa Level ABG pH POC ABG pO2 ABG pO2 ABG HCO3 ABG O2 Saturation ABG Base Excess POC ABG pCO2 ABG Hemoglobin ABG Oxyhemoglobin ABG Glucose Oxyhemoglobin Sodium Potassium Chloride Carbon Dioxide BUN Creatinine Glucose POC Glucose 156 H 156 H 155 H Lactic Acid Calcium Phosphorus Magnesium AST ALT Lactate Dehydrogenase Total Bilirubin Direct Bilirubin CK-MB (CK-2) C-Reactive Protein NT-Pro-B Natriuret Pep Total Protein Albumin Arterial Blood Glucose Urine WBC (Auto) Urine Creatinine 12/20/19 12/20/19 12/20/19 05:26 06:02 18:17 WBC RBC Hgb Hct MCHC RDW MCV MCH Lymph % (Auto) [place] % (Auto) [place] # Eos # Lymph # (Auto) [place] # (Auto) Eos # (Auto) Seg Neutrophils % Seg Neuts % (Manual) Baso # (Auto) Lymphocytes % (Manual) Monocytes % (Manual) Eosinophils % (Manual) Basophils % (Manual) Seg Neutrophils # Seg Neutrophils # Man Lymphocytes # (Manual) Monocytes # (Manual) Eosinophils # (Manual) Nucleated RBC % Basophils # (Manual) PT INR APTT Heparin Anti-Xa Level 0.19 L ABG pH POC ABG pO2 ABG pO2 ABG HCO3 ABG O2 Saturation ABG Base Excess POC ABG pCO2 ABG Hemoglobin ABG Oxyhemoglobin ABG Glucose Oxyhemoglobin Sodium Potassium Chloride Carbon Dioxide BUN Creatinine Glucose POC Glucose 137 H 128 H Lactic Acid Calcium Phosphorus Magnesium AST ALT Lactate Dehydrogenase Total Bilirubin Direct Bilirubin CK-MB (CK-2) C-Reactive Protein NT-Pro-B Natriuret Pep Total Protein Albumin Arterial Blood Glucose Urine WBC (Auto) Urine Creatinine 12/20/19 12/21/19 12/21/19 23:34 05:31 05:31 WBC 12.7 H RBC 3.09 L Hgb 8.9 L Hct 27.4 L MCHC RDW 15.8 H MCV MCH Lymph % (Auto) 12.1 L [place] % (Auto) 7.8 H [place] # Eos # Lymph # (Auto) [place] # (Auto) 1.0 H Eos # (Auto) Seg Neutrophils % 77.1 H Seg Neuts % (Manual) Baso # (Auto) Lymphocytes % (Manual) Monocytes % (Manual) Eosinophils % (Manual) Basophils % (Manual) Seg Neutrophils # 9.8 H Seg Neutrophils # Man Lymphocytes # (Manual) Monocytes # (Manual) Eosinophils # (Manual) Nucleated RBC % Basophils # (Manual) PT INR APTT Heparin Anti-Xa Level ABG pH POC ABG pO2 ABG pO2 ABG HCO3 ABG O2 Saturation ABG Base Excess POC ABG pCO2 ABG Hemoglobin ABG Oxyhemoglobin ABG Glucose Oxyhemoglobin Sodium Potassium Chloride 96.9 L Carbon Dioxide 37 H BUN 27 H Creatinine 0.7 L Glucose 140 H POC Glucose 145 H Lactic Acid Calcium Phosphorus Magnesium AST ALT Lactate Dehydrogenase Total Bilirubin Direct Bilirubin CK-MB (CK-2) C-Reactive Protein NT-Pro-B Natriuret Pep Total Protein Albumin Arterial Blood Glucose Urine WBC (Auto) Urine Creatinine 12/21/19 12/21/19 12/21/19 05:38 10:13 11:51 WBC RBC Hgb Hct MCHC RDW MCV MCH Lymph % (Auto) [place] % (Auto) [place] # Eos # Lymph # (Auto) [place] # (Auto) Eos # (Auto) Seg Neutrophils % Seg Neuts % (Manual) Baso # (Auto) Lymphocytes % (Manual) Monocytes % (Manual) Eosinophils % (Manual) Basophils % (Manual) Seg Neutrophils # Seg Neutrophils # Man Lymphocytes # (Manual) Monocytes # (Manual) Eosinophils # (Manual) Nucleated RBC % Basophils # (Manual) PT INR APTT 23.9 L Heparin Anti-Xa Level < 0.10 L ABG pH POC ABG pO2 ABG pO2 ABG HCO3 ABG O2 Saturation ABG Base Excess POC ABG pCO2 ABG Hemoglobin ABG Oxyhemoglobin ABG Glucose Oxyhemoglobin Sodium Potassium Chloride Carbon Dioxide BUN Creatinine Glucose POC Glucose 151 H 145 H Lactic Acid Calcium Phosphorus Magnesium AST ALT Lactate Dehydrogenase Total Bilirubin Direct Bilirubin CK-MB (CK-2) C-Reactive Protein NT-Pro-B Natriuret Pep Total Protein Albumin Arterial Blood Glucose Urine WBC (Auto) Urine Creatinine 12/21/19 12/22/19 12/22/19 17:16 00:01 01:33 WBC RBC Hgb Hct MCHC RDW MCV MCH Lymph % (Auto) [place] % (Auto) [place] # Eos # Lymph # (Auto) [place] # (Auto) Eos # (Auto) Seg Neutrophils % Seg Neuts % (Manual) Baso # (Auto) Lymphocytes % (Manual) Monocytes % (Manual) Eosinophils % (Manual) Basophils % (Manual) Seg Neutrophils # Seg Neutrophils # Man Lymphocytes # (Manual) Monocytes # (Manual) Eosinophils # (Manual) Nucleated RBC % Basophils # (Manual) PT INR APTT Heparin Anti-Xa Level 0.10 L ABG pH POC ABG pO2 ABG pO2 ABG HCO3 ABG O2 Saturation ABG Base Excess POC ABG pCO2 ABG Hemoglobin ABG Oxyhemoglobin ABG Glucose Oxyhemoglobin Sodium Potassium Chloride Carbon Dioxide BUN Creatinine Glucose POC Glucose 167 H 179 H Lactic Acid Calcium Phosphorus Magnesium AST ALT Lactate Dehydrogenase Total Bilirubin Direct Bilirubin CK-MB (CK-2) C-Reactive Protein NT-Pro-B Natriuret Pep Total Protein Albumin Arterial Blood Glucose Urine WBC (Auto) Urine Creatinine 12/22/19 12/22/19 12/22/19 03:22 05:10 05:10 WBC 13.8 H RBC 3.20 L Hgb 8.9 L Hct 28.1 L MCHC RDW 15.9 H MCV MCH Lymph % (Auto) [place] % (Auto) [place] # Eos # Lymph # (Auto) [place] # (Auto) Eos # (Auto) Seg Neutrophils % Seg Neuts % (Manual) Baso # (Auto) Lymphocytes % (Manual) Monocytes % (Manual) Eosinophils % (Manual) Basophils % (Manual) Seg Neutrophils # Seg Neutrophils # Man Lymphocytes # (Manual) Monocytes # (Manual) Eosinophils # (Manual) Nucleated RBC % Basophils # (Manual) PT INR APTT Heparin Anti-Xa Level ABG pH POC ABG pO2 52.3 L ABG pO2 ABG HCO3 ABG O2 Saturation ABG Base Excess POC ABG pCO2 52.9 H ABG Hemoglobin 10.7 L ABG Oxyhemoglobin 84 L ABG Glucose Oxyhemoglobin Sodium Potassium Chloride 96.6 L Carbon Dioxide BUN 25 H Creatinine 0.7 L Glucose 129 H POC Glucose Lactic Acid Calcium Phosphorus Magnesium AST ALT Lactate Dehydrogenase Total Bilirubin Direct Bilirubin CK-MB (CK-2) C-Reactive Protein NT-Pro-B Natriuret Pep Total Protein Albumin Arterial Blood Glucose Urine WBC (Auto) Urine Creatinine 12/22/19 12/22/19 12/22/19 05:18 12:32 12:43 WBC RBC Hgb Hct MCHC RDW MCV MCH Lymph % (Auto) [place] % (Auto) [place] # Eos # Lymph # (Auto) [place] # (Auto) Eos # (Auto) Seg Neutrophils % Seg Neuts % (Manual) Baso # (Auto) Lymphocytes % (Manual) Monocytes % (Manual) Eosinophils % (Manual) Basophils % (Manual) Seg Neutrophils # Seg Neutrophils # Man Lymphocytes # (Manual) Monocytes # (Manual) Eosinophils # (Manual) Nucleated RBC % Basophils # (Manual) PT INR APTT Heparin Anti-Xa Level 0.18 L ABG pH POC ABG pO2 ABG pO2 ABG HCO3 ABG O2 Saturation ABG Base Excess POC ABG pCO2 ABG Hemoglobin ABG Oxyhemoglobin ABG Glucose Oxyhemoglobin Sodium Potassium Chloride Carbon Dioxide BUN Creatinine Glucose POC Glucose 131 H 208 H Lactic Acid Calcium Phosphorus Magnesium AST ALT Lactate Dehydrogenase Total Bilirubin Direct Bilirubin CK-MB (CK-2) C-Reactive Protein NT-Pro-B Natriuret Pep Total Protein Albumin Arterial Blood Glucose Urine WBC (Auto) Urine Creatinine 12/22/19 12/22/19 12/23/19 17:44 23:20 03:51 WBC 15.2 H RBC 3.43 L Hgb 9.6 L Hct 30.3 L MCHC RDW 15.9 H MCV MCH Lymph % (Auto) [place] % (Auto) [place] # Eos # Lymph # (Auto) [place] # (Auto) Eos # (Auto) Seg Neutrophils % Seg Neuts % (Manual) Baso # (Auto) Lymphocytes % (Manual) Monocytes % (Manual) Eosinophils % (Manual) Basophils % (Manual) Seg Neutrophils # Seg Neutrophils # Man Lymphocytes # (Manual) Monocytes # (Manual) Eosinophils # (Manual) Nucleated RBC % Basophils # (Manual) PT INR APTT Heparin Anti-Xa Level ABG pH POC ABG pO2 ABG pO2 ABG HCO3 ABG O2 Saturation ABG Base Excess POC ABG pCO2 ABG Hemoglobin ABG Oxyhemoglobin ABG Glucose Oxyhemoglobin Sodium Potassium Chloride Carbon Dioxide BUN Creatinine Glucose POC Glucose 209 H 119 H Lactic Acid Calcium Phosphorus Magnesium AST ALT Lactate Dehydrogenase Total Bilirubin Direct Bilirubin CK-MB (CK-2) C-Reactive Protein NT-Pro-B Natriuret Pep Total Protein Albumin Arterial Blood Glucose Urine WBC (Auto) Urine Creatinine 12/23/19 12/23/19 12/23/19 03:51 05:31 12:09 WBC RBC Hgb Hct MCHC RDW MCV MCH Lymph % (Auto) [place] % (Auto) [place] # Eos # Lymph # (Auto) [place] # (Auto) Eos # (Auto) Seg Neutrophils % Seg Neuts % (Manual) Baso # (Auto) Lymphocytes % (Manual) Monocytes % (Manual) Eosinophils % (Manual) Basophils % (Manual) Seg Neutrophils # Seg Neutrophils # Man Lymphocytes # (Manual) Monocytes # (Manual) Eosinophils # (Manual) Nucleated RBC % Basophils # (Manual) PT INR APTT Heparin Anti-Xa Level ABG pH POC ABG pO2 ABG pO2 ABG HCO3 ABG O2 Saturation ABG Base Excess POC ABG pCO2 ABG Hemoglobin ABG Oxyhemoglobin ABG Glucose Oxyhemoglobin Sodium Potassium Chloride 97.2 L Carbon Dioxide 31 H BUN 23 H Creatinine 0.6 L Glucose 153 H POC Glucose 149 H 144 H Lactic Acid Calcium Phosphorus Magnesium AST ALT Lactate Dehydrogenase Total Bilirubin Direct Bilirubin CK-MB (CK-2) C-Reactive Protein NT-Pro-B Natriuret Pep Total Protein Albumin Arterial Blood Glucose Urine WBC (Auto) Urine Creatinine 12/23/19 12/23/19 12/23/19 15:30 17:49 23:31 WBC RBC Hgb Hct MCHC RDW MCV MCH Lymph % (Auto) [place] % (Auto) [place] # Eos # Lymph # (Auto) [place] # (Auto) Eos # (Auto) Seg Neutrophils % Seg Neuts % (Manual) Baso # (Auto) Lymphocytes % (Manual) Monocytes % (Manual) Eosinophils % (Manual) Basophils % (Manual) Seg Neutrophils # Seg Neutrophils # Man Lymphocytes # (Manual) Monocytes # (Manual) Eosinophils # (Manual) Nucleated RBC % Basophils # (Manual) PT INR APTT Heparin Anti-Xa Level 0.21 L ABG pH POC ABG pO2 ABG pO2 ABG HCO3 ABG O2 Saturation ABG Base Excess POC ABG pCO2 ABG Hemoglobin ABG Oxyhemoglobin ABG Glucose Oxyhemoglobin Sodium Potassium Chloride Carbon Dioxide BUN Creatinine Glucose POC Glucose 192 H 151 H Lactic Acid Calcium Phosphorus Magnesium AST ALT Lactate Dehydrogenase Total Bilirubin Direct Bilirubin CK-MB (CK-2) C-Reactive Protein NT-Pro-B Natriuret Pep Total Protein Albumin Arterial Blood Glucose Urine WBC (Auto) Urine Creatinine 12/24/19 12/24/19 12/24/19 05:34 12:13 16:50 WBC RBC Hgb Hct MCHC RDW MCV MCH Lymph % (Auto) [place] % (Auto) [place] # Eos # Lymph # (Auto) [place] # (Auto) Eos # (Auto) Seg Neutrophils % Seg Neuts % (Manual) Baso # (Auto) Lymphocytes % (Manual) Monocytes % (Manual) Eosinophils % (Manual) Basophils % (Manual) Seg Neutrophils # Seg Neutrophils # Man Lymphocytes # (Manual) Monocytes # (Manual) Eosinophils # (Manual) Nucleated RBC % Basophils # (Manual) PT INR APTT Heparin Anti-Xa Level 0.16 L ABG pH POC ABG pO2 ABG pO2 ABG HCO3 ABG O2 Saturation ABG Base Excess POC ABG pCO2 ABG Hemoglobin ABG Oxyhemoglobin ABG Glucose Oxyhemoglobin Sodium Potassium Chloride Carbon Dioxide BUN Creatinine Glucose POC Glucose 145 H 124 H Lactic Acid Calcium Phosphorus Magnesium AST ALT Lactate Dehydrogenase Total Bilirubin Direct Bilirubin CK-MB (CK-2) C-Reactive Protein NT-Pro-B Natriuret Pep Total Protein Albumin Arterial Blood Glucose Urine WBC (Auto) Urine Creatinine 12/24/19 12/25/19 12/25/19 17:53 00:14 04:18 WBC 12.9 H RBC 3.30 L Hgb 9.1 L Hct 28.8 L MCHC RDW 16.4 H MCV MCH Lymph % (Auto) [place] % (Auto) 7.8 H [place] # Eos # Lymph # (Auto) [place] # (Auto) 1.0 H Eos # (Auto) Seg Neutrophils % 75.5 H Seg Neuts % (Manual) Baso # (Auto) Lymphocytes % (Manual) Monocytes % (Manual) Eosinophils % (Manual) Basophils % (Manual) Seg Neutrophils # 9.7 H Seg Neutrophils # Man Lymphocytes # (Manual) Monocytes # (Manual) Eosinophils # (Manual) Nucleated RBC % Basophils # (Manual) PT INR APTT Heparin Anti-Xa Level ABG pH POC ABG pO2 ABG pO2 ABG HCO3 ABG O2 Saturation ABG Base Excess POC ABG pCO2 ABG Hemoglobin ABG Oxyhemoglobin ABG Glucose Oxyhemoglobin Sodium Potassium Chloride Carbon Dioxide BUN Creatinine Glucose POC Glucose 164 H 148 H Lactic Acid Calcium Phosphorus Magnesium AST ALT Lactate Dehydrogenase Total Bilirubin Direct Bilirubin CK-MB (CK-2) C-Reactive Protein NT-Pro-B Natriuret Pep Total Protein Albumin Arterial Blood Glucose Urine WBC (Auto) Urine Creatinine 12/25/19 12/25/19 12/25/19 04:18 05:38 11:44 WBC RBC Hgb Hct MCHC RDW MCV MCH Lymph % (Auto) [place] % (Auto) [place] # Eos # Lymph # (Auto) [place] # (Auto) Eos # (Auto) Seg Neutrophils % Seg Neuts % (Manual) Baso # (Auto) Lymphocytes % (Manual) Monocytes % (Manual) Eosinophils % (Manual) Basophils % (Manual) Seg Neutrophils # Seg Neutrophils # Man Lymphocytes # (Manual) Monocytes # (Manual) Eosinophils # (Manual) Nucleated RBC % Basophils # (Manual) PT INR APTT Heparin Anti-Xa Level ABG pH POC ABG pO2 ABG pO2 ABG HCO3 ABG O2 Saturation ABG Base Excess POC ABG pCO2 ABG Hemoglobin ABG Oxyhemoglobin ABG Glucose Oxyhemoglobin Sodium Potassium Chloride Carbon Dioxide 33 H BUN 27 H Creatinine 0.6 L Glucose 132 H POC Glucose 152 H 166 H Lactic Acid Calcium Phosphorus Magnesium AST ALT Lactate Dehydrogenase Total Bilirubin Direct Bilirubin CK-MB (CK-2) C-Reactive Protein NT-Pro-B Natriuret Pep Total Protein Albumin Arterial Blood Glucose Urine WBC (Auto) Urine Creatinine 12/25/19 12/26/19 12/26/19 18:29 00:17 00:18 WBC RBC Hgb Hct MCHC RDW MCV MCH Lymph % (Auto) [place] % (Auto) [place] # Eos # Lymph # (Auto) [place] # (Auto) Eos # (Auto) Seg Neutrophils % Seg Neuts % (Manual) Baso # (Auto) Lymphocytes % (Manual) Monocytes % (Manual) Eosinophils % (Manual) Basophils % (Manual) Seg Neutrophils # Seg Neutrophils # Man Lymphocytes # (Manual) Monocytes # (Manual) Eosinophils # (Manual) Nucleated RBC % Basophils # (Manual) PT INR APTT Heparin Anti-Xa Level ABG pH POC ABG pO2 ABG pO2 ABG HCO3 ABG O2 Saturation ABG Base Excess POC ABG pCO2 ABG Hemoglobin ABG Oxyhemoglobin ABG Glucose Oxyhemoglobin Sodium Potassium Chloride 97.8 L Carbon Dioxide BUN 25 H Creatinine 0.6 L Glucose 140 H POC Glucose 194 H 151 H Lactic Acid Calcium Phosphorus Magnesium AST ALT Lactate Dehydrogenase Total Bilirubin Direct Bilirubin CK-MB (CK-2) C-Reactive Protein NT-Pro-B Natriuret Pep Total Protein Albumin Arterial Blood Glucose Urine WBC (Auto) Urine Creatinine 12/26/19 12/26/19 12/26/19 05:36 11:41 17:50 WBC RBC Hgb Hct MCHC RDW MCV MCH Lymph % (Auto) [place] % (Auto) [place] # Eos # Lymph # (Auto) [place] # (Auto) Eos # (Auto) Seg Neutrophils % Seg Neuts % (Manual) Baso # (Auto) Lymphocytes % (Manual) Monocytes % (Manual) Eosinophils % (Manual) Basophils % (Manual) Seg Neutrophils # Seg Neutrophils # Man Lymphocytes # (Manual) Monocytes # (Manual) Eosinophils # (Manual) Nucleated RBC % Basophils # (Manual) PT INR APTT Heparin Anti-Xa Level ABG pH POC ABG pO2 ABG pO2 ABG HCO3 ABG O2 Saturation ABG Base Excess POC ABG pCO2 ABG Hemoglobin ABG Oxyhemoglobin ABG Glucose Oxyhemoglobin Sodium Potassium Chloride Carbon Dioxide BUN Creatinine Glucose POC Glucose 156 H 148 H 139 H Lactic Acid Calcium Phosphorus Magnesium AST ALT Lactate Dehydrogenase Total Bilirubin Direct Bilirubin CK-MB (CK-2) C-Reactive Protein NT-Pro-B Natriuret Pep Total Protein Albumin Arterial Blood Glucose Urine WBC (Auto) Urine Creatinine 12/26/19 12/27/19 12/27/19 23:19 05:34 12:02 WBC RBC Hgb Hct MCHC RDW MCV MCH Lymph % (Auto) [place] % (Auto) [place] # Eos # Lymph # (Auto) [place] # (Auto) Eos # (Auto) Seg Neutrophils % Seg Neuts % (Manual) Baso # (Auto) Lymphocytes % (Manual) Monocytes % (Manual) Eosinophils % (Manual) Basophils % (Manual) Seg Neutrophils # Seg Neutrophils # Man Lymphocytes # (Manual) Monocytes # (Manual) Eosinophils # (Manual) Nucleated RBC % Basophils # (Manual) PT INR APTT Heparin Anti-Xa Level ABG pH POC ABG pO2 ABG pO2 ABG HCO3 ABG O2 Saturation ABG Base Excess POC ABG pCO2 ABG Hemoglobin ABG Oxyhemoglobin ABG Glucose Oxyhemoglobin Sodium Potassium Chloride Carbon Dioxide BUN Creatinine Glucose POC Glucose 161 H 145 H 157 H Lactic Acid Calcium Phosphorus Magnesium AST ALT Lactate Dehydrogenase Total Bilirubin Direct Bilirubin CK-MB (CK-2) C-Reactive Protein NT-Pro-B Natriuret Pep Total Protein Albumin Arterial Blood Glucose Urine WBC (Auto) Urine Creatinine 12/27/19 12/27/19 12/27/19 17:35 20:11 23:00 WBC RBC Hgb Hct MCHC RDW MCV MCH Lymph % (Auto) [place] % (Auto) [place] # Eos # Lymph # (Auto) [place] # (Auto) Eos # (Auto) Seg Neutrophils % Seg Neuts % (Manual) Baso # (Auto) Lymphocytes % (Manual) Monocytes % (Manual) Eosinophils % (Manual) Basophils % (Manual) Seg Neutrophils # Seg Neutrophils # Man Lymphocytes # (Manual) Monocytes # (Manual) Eosinophils # (Manual) Nucleated RBC % Basophils # (Manual) PT INR APTT Heparin Anti-Xa Level 0.19 L ABG pH POC ABG pO2 ABG pO2 ABG HCO3 ABG O2 Saturation ABG Base Excess POC ABG pCO2 ABG Hemoglobin ABG Oxyhemoglobin ABG Glucose Oxyhemoglobin Sodium Potassium Chloride Carbon Dioxide BUN Creatinine Glucose POC Glucose 158 H 155 H Lactic Acid Calcium Phosphorus Magnesium AST ALT Lactate Dehydrogenase Total Bilirubin Direct Bilirubin CK-MB (CK-2) C-Reactive Protein NT-Pro-B Natriuret Pep Total Protein Albumin Arterial Blood Glucose Urine WBC (Auto) Urine Creatinine 12/27/19 12/28/19 12/28/19 23:45 02:41 02:41 WBC 13.0 H RBC 3.48 L Hgb 9.5 L Hct 30.6 L MCHC 31 L RDW 16.6 H MCV MCH 27 L Lymph % (Auto) 13.0 L [place] % (Auto) 8.0 H [place] # Eos # Lymph # (Auto) [place] # (Auto) 1.0 H Eos # (Auto) Seg Neutrophils % 76.3 H Seg Neuts % (Manual) Baso # (Auto) Lymphocytes % (Manual) Monocytes % (Manual) Eosinophils % (Manual) Basophils % (Manual) Seg Neutrophils # 9.9 H Seg Neutrophils # Man Lymphocytes # (Manual) Monocytes # (Manual) Eosinophils # (Manual) Nucleated RBC % Basophils # (Manual) PT INR APTT Heparin Anti-Xa Level ABG pH POC ABG pO2 ABG pO2 ABG HCO3 ABG O2 Saturation ABG Base Excess POC ABG pCO2 ABG Hemoglobin ABG Oxyhemoglobin ABG Glucose Oxyhemoglobin Sodium Potassium Chloride Carbon Dioxide BUN 22 H Creatinine 0.6 L Glucose 101 H POC Glucose 130 H Lactic Acid Calcium Phosphorus Magnesium AST ALT Lactate Dehydrogenase Total Bilirubin Direct Bilirubin CK-MB (CK-2) C-Reactive Protein NT-Pro-B Natriuret Pep Total Protein Albumin Arterial Blood Glucose Urine WBC (Auto) Urine Creatinine 12/28/19 12/28/19 12/28/19 06:00 12:34 18:13 WBC RBC Hgb Hct MCHC RDW MCV MCH Lymph % (Auto) [place] % (Auto) [place] # Eos # Lymph # (Auto) [place] # (Auto) Eos # (Auto) Seg Neutrophils % Seg Neuts % (Manual) Baso # (Auto) Lymphocytes % (Manual) Monocytes % (Manual) Eosinophils % (Manual) Basophils % (Manual) Seg Neutrophils # Seg Neutrophils # Man Lymphocytes # (Manual) Monocytes # (Manual) Eosinophils # (Manual) Nucleated RBC % Basophils # (Manual) PT INR APTT Heparin Anti-Xa Level ABG pH POC ABG pO2 ABG pO2 ABG HCO3 ABG O2 Saturation ABG Base Excess POC ABG pCO2 ABG Hemoglobin ABG Oxyhemoglobin ABG Glucose Oxyhemoglobin Sodium Potassium Chloride Carbon Dioxide BUN Creatinine Glucose POC Glucose 150 H 161 H 128 H Lactic Acid Calcium Phosphorus Magnesium AST ALT Lactate Dehydrogenase Total Bilirubin Direct Bilirubin CK-MB (CK-2) C-Reactive Protein NT-Pro-B Natriuret Pep Total Protein Albumin Arterial Blood Glucose Urine WBC (Auto) Urine Creatinine 12/28/19 12/29/19 12/29/19 23:36 05:21 11:40 WBC RBC Hgb Hct MCHC RDW MCV MCH Lymph % (Auto) [place] % (Auto) [place] # Eos # Lymph # (Auto) [place] # (Auto) Eos # (Auto) Seg Neutrophils % Seg Neuts % (Manual) Baso # (Auto) Lymphocytes % (Manual) Monocytes % (Manual) Eosinophils % (Manual) Basophils % (Manual) Seg Neutrophils # Seg Neutrophils # Man Lymphocytes # (Manual) Monocytes # (Manual) Eosinophils # (Manual) Nucleated RBC % Basophils # (Manual) PT INR APTT Heparin Anti-Xa Level ABG pH POC ABG pO2 ABG pO2 ABG HCO3 ABG O2 Saturation ABG Base Excess POC ABG pCO2 ABG Hemoglobin ABG Oxyhemoglobin ABG Glucose Oxyhemoglobin Sodium Potassium Chloride Carbon Dioxide BUN Creatinine Glucose POC Glucose 137 H 136 H 166 H Lactic Acid Calcium Phosphorus Magnesium AST ALT Lactate Dehydrogenase Total Bilirubin Direct Bilirubin CK-MB (CK-2) C-Reactive Protein NT-Pro-B Natriuret Pep Total Protein Albumin Arterial Blood Glucose Urine WBC (Auto) Urine Creatinine 12/29/19 12/29/19 12/29/19 17:23 19:21 23:38 WBC RBC Hgb Hct MCHC RDW MCV MCH Lymph % (Auto) [place] % (Auto) [place] # Eos # Lymph # (Auto) [place] # (Auto) Eos # (Auto) Seg Neutrophils % Seg Neuts % (Manual) Baso # (Auto) Lymphocytes % (Manual) Monocytes % (Manual) Eosinophils % (Manual) Basophils % (Manual) Seg Neutrophils # Seg Neutrophils # Man Lymphocytes # (Manual) Monocytes # (Manual) Eosinophils # (Manual) Nucleated RBC % Basophils # (Manual) PT INR APTT Heparin Anti-Xa Level 0.20 L ABG pH POC ABG pO2 ABG pO2 ABG HCO3 ABG O2 Saturation ABG Base Excess POC ABG pCO2 ABG Hemoglobin ABG Oxyhemoglobin ABG Glucose Oxyhemoglobin Sodium Potassium Chloride Carbon Dioxide BUN Creatinine Glucose POC Glucose 144 H 141 H Lactic Acid Calcium Phosphorus Magnesium AST ALT Lactate Dehydrogenase Total Bilirubin Direct Bilirubin CK-MB (CK-2) C-Reactive Protein NT-Pro-B Natriuret Pep Total Protein Albumin Arterial Blood Glucose Urine WBC (Auto) Urine Creatinine 12/30/19 12/30/19 12/30/19 03:58 03:58 04:59 WBC RBC 3.54 L Hgb 9.8 L Hct 30.7 L MCHC RDW 16.8 H MCV MCH Lymph % (Auto) [place] % (Auto) [place] # Eos # Lymph # (Auto) [place] # (Auto) Eos # (Auto) Seg Neutrophils % Seg Neuts % (Manual) Baso # (Auto) Lymphocytes % (Manual) Monocytes % (Manual) Eosinophils % (Manual) Basophils % (Manual) Seg Neutrophils # Seg Neutrophils # Man Lymphocytes # (Manual) Monocytes # (Manual) Eosinophils # (Manual) Nucleated RBC % Basophils # (Manual) PT INR APTT Heparin Anti-Xa Level ABG pH POC ABG pO2 ABG pO2 ABG HCO3 29.8 H ABG O2 Saturation ABG Base Excess 4.8 H POC ABG pCO2 ABG Hemoglobin 11.2 L ABG Oxyhemoglobin ABG Glucose Oxyhemoglobin 93.8 L Sodium Potassium Chloride 97.8 L Carbon Dioxide BUN 26 H Creatinine Glucose 168 H POC Glucose Lactic Acid Calcium Phosphorus Magnesium AST ALT Lactate Dehydrogenase Total Bilirubin Direct Bilirubin CK-MB (CK-2) C-Reactive Protein NT-Pro-B Natriuret Pep Total Protein Albumin Arterial Blood Glucose Urine WBC (Auto) Urine Creatinine 12/30/19 12/30/19 12/30/19 05:45 11:34 17:28 WBC RBC Hgb Hct MCHC RDW MCV MCH Lymph % (Auto) [place] % (Auto) [place] # Eos # Lymph # (Auto) [place] # (Auto) Eos # (Auto) Seg Neutrophils % Seg Neuts % (Manual) Baso # (Auto) Lymphocytes % (Manual) Monocytes % (Manual) Eosinophils % (Manual) Basophils % (Manual) Seg Neutrophils # Seg Neutrophils # Man Lymphocytes # (Manual) Monocytes # (Manual) Eosinophils # (Manual) Nucleated RBC % Basophils # (Manual) PT INR APTT Heparin Anti-Xa Level ABG pH POC ABG pO2 ABG pO2 ABG HCO3 ABG O2 Saturation ABG Base Excess POC ABG pCO2 ABG Hemoglobin ABG Oxyhemoglobin ABG Glucose Oxyhemoglobin Sodium Potassium Chloride Carbon Dioxide BUN Creatinine Glucose POC Glucose 163 H 180 H 150 H Lactic Acid Calcium Phosphorus Magnesium AST ALT Lactate Dehydrogenase Total Bilirubin Direct Bilirubin CK-MB (CK-2) C-Reactive Protein NT-Pro-B Natriuret Pep Total Protein Albumin Arterial Blood Glucose Urine WBC (Auto) Urine Creatinine 12/30/19 12/31/19 12/31/19 23:43 04:55 05:07 WBC RBC Hgb Hct MCHC RDW MCV MCH Lymph % (Auto) [place] % (Auto) [place] # Eos # Lymph # (Auto) [place] # (Auto) Eos # (Auto) Seg Neutrophils % Seg Neuts % (Manual) Baso # (Auto) Lymphocytes % (Manual) Monocytes % (Manual) Eosinophils % (Manual) Basophils % (Manual) Seg Neutrophils # Seg Neutrophils # Man Lymphocytes # (Manual) Monocytes # (Manual) Eosinophils # (Manual) Nucleated RBC % Basophils # (Manual) PT INR APTT Heparin Anti-Xa Level ABG pH POC ABG pO2 ABG pO2 ABG HCO3 ABG O2 Saturation ABG Base Excess POC ABG pCO2 ABG Hemoglobin ABG Oxyhemoglobin ABG Glucose Oxyhemoglobin Sodium Potassium 5.6 H D Chloride Carbon Dioxide BUN 33 H Creatinine Glucose 131 H POC Glucose 142 H 134 H Lactic Acid Calcium Phosphorus Magnesium AST ALT Lactate Dehydrogenase Total Bilirubin Direct Bilirubin CK-MB (CK-2) C-Reactive Protein NT-Pro-B Natriuret Pep Total Protein Albumin Arterial Blood Glucose Urine WBC (Auto) Urine Creatinine 12/31/19 12/31/19 12/31/19 11:30 17:19 17:36 WBC RBC Hgb Hct MCHC RDW MCV MCH Lymph % (Auto) [place] % (Auto) [place] # Eos # Lymph # (Auto) [place] # (Auto) Eos # (Auto) Seg Neutrophils % Seg Neuts % (Manual) Baso # (Auto) Lymphocytes % (Manual) Monocytes % (Manual) Eosinophils % (Manual) Basophils % (Manual) Seg Neutrophils # Seg Neutrophils # Man Lymphocytes # (Manual) Monocytes # (Manual) Eosinophils # (Manual) Nucleated RBC % Basophils # (Manual) PT INR APTT Heparin Anti-Xa Level ABG pH POC ABG pO2 ABG pO2 ABG HCO3 ABG O2 Saturation ABG Base Excess POC ABG pCO2 ABG Hemoglobin ABG Oxyhemoglobin ABG Glucose Oxyhemoglobin Sodium Potassium Chloride Carbon Dioxide BUN 35 H Creatinine Glucose 156 H POC Glucose 158 H 181 H Lactic Acid Calcium Phosphorus Magnesium AST ALT Lactate Dehydrogenase Total Bilirubin Direct Bilirubin CK-MB (CK-2) C-Reactive Protein NT-Pro-B Natriuret Pep Total Protein Albumin Arterial Blood Glucose Urine WBC (Auto) Urine Creatinine 12/31/19 12/31/19 12/31/19 18:16 19:41 21:53 WBC RBC Hgb Hct MCHC RDW MCV MCH Lymph % (Auto) [place] % (Auto) [place] # Eos # Lymph # (Auto) [place] # (Auto) Eos # (Auto) Seg Neutrophils % Seg Neuts % (Manual) Baso # (Auto) Lymphocytes % (Manual) Monocytes % (Manual) Eosinophils % (Manual) Basophils % (Manual) Seg Neutrophils # Seg Neutrophils # Man Lymphocytes # (Manual) Monocytes # (Manual) Eosinophils # (Manual) Nucleated RBC % Basophils # (Manual) PT INR APTT Heparin Anti-Xa Level 0.20 L ABG pH POC ABG pO2 ABG pO2 ABG HCO3 ABG O2 Saturation ABG Base Excess POC ABG pCO2 ABG Hemoglobin ABG Oxyhemoglobin ABG Glucose Oxyhemoglobin Sodium Potassium Chloride Carbon Dioxide BUN 34 H Creatinine Glucose 169 H POC Glucose 141 H Lactic Acid Calcium Phosphorus Magnesium AST ALT Lactate Dehydrogenase Total Bilirubin Direct Bilirubin CK-MB (CK-2) C-Reactive Protein NT-Pro-B Natriuret Pep Total Protein Albumin Arterial Blood Glucose Urine WBC (Auto) Urine Creatinine 12/31/19 01/01/20 01/01/20 23:51 05:17 10:40 WBC RBC Hgb Hct MCHC RDW MCV MCH Lymph % (Auto) [place] % (Auto) [place] # Eos # Lymph # (Auto) [place] # (Auto) Eos # (Auto) Seg Neutrophils % Seg Neuts % (Manual) Baso # (Auto) Lymphocytes % (Manual) Monocytes % (Manual) Eosinophils % (Manual) Basophils % (Manual) Seg Neutrophils # Seg Neutrophils # Man Lymphocytes # (Manual) Monocytes # (Manual) Eosinophils # (Manual) Nucleated RBC % Basophils # (Manual) PT INR APTT Heparin Anti-Xa Level ABG pH POC ABG pO2 ABG pO2 ABG HCO3 ABG O2 Saturation ABG Base Excess POC ABG pCO2 ABG Hemoglobin ABG Oxyhemoglobin ABG Glucose Oxyhemoglobin Sodium Potassium Chloride Carbon Dioxide BUN 31 H Creatinine 0.7 L Glucose 137 H POC Glucose 131 H 155 H Lactic Acid Calcium Phosphorus Magnesium AST 73 H ALT 97 H Lactate Dehydrogenase Total Bilirubin Direct Bilirubin CK-MB (CK-2) C-Reactive Protein NT-Pro-B Natriuret Pep 3866 H Total Protein Albumin 2.8 L Arterial Blood Glucose Urine WBC (Auto) Urine Creatinine 01/01/20 01/01/20 01/01/20 12:26 15:33 17:53 WBC 14.3 H RBC 3.35 L Hgb 9.1 L Hct 28.8 L MCHC RDW 17.0 H MCV MCH 27 L Lymph % (Auto) 7.0 L [place] % (Auto) 7.6 H [place] # Eos # Lymph # (Auto) 1.0 L [place] # (Auto) 1.1 H Eos # (Auto) Seg Neutrophils % 83.3 H Seg Neuts % (Manual) Baso # (Auto) Lymphocytes % (Manual) Monocytes % (Manual) Eosinophils % (Manual) Basophils % (Manual) Seg Neutrophils # 12.0 H Seg Neutrophils # Man Lymphocytes # (Manual) Monocytes # (Manual) Eosinophils # (Manual) Nucleated RBC % Basophils # (Manual) PT INR APTT Heparin Anti-Xa Level ABG pH POC ABG pO2 ABG pO2 ABG HCO3 ABG O2 Saturation ABG Base Excess POC ABG pCO2 ABG Hemoglobin ABG Oxyhemoglobin ABG Glucose Oxyhemoglobin Sodium Potassium Chloride Carbon Dioxide BUN Creatinine Glucose POC Glucose 128 H 128 H Lactic Acid Calcium Phosphorus Magnesium AST ALT Lactate Dehydrogenase Total Bilirubin Direct Bilirubin CK-MB (CK-2) C-Reactive Protein NT-Pro-B Natriuret Pep Total Protein Albumin Arterial Blood Glucose Urine WBC (Auto) Urine Creatinine 01/01/20 01/02/20 01/02/20 23:04 05:39 07:00 WBC RBC Hgb Hct MCHC RDW MCV MCH Lymph % (Auto) [place] % (Auto) [place] # Eos # Lymph # (Auto) [place] # (Auto) Eos # (Auto) Seg Neutrophils % Seg Neuts % (Manual) Baso # (Auto) Lymphocytes % (Manual) Monocytes % (Manual) Eosinophils % (Manual) Basophils % (Manual) Seg Neutrophils # Seg Neutrophils # Man Lymphocytes # (Manual) Monocytes # (Manual) Eosinophils # (Manual) Nucleated RBC % Basophils # (Manual) PT INR APTT Heparin Anti-Xa Level 0.13 L ABG pH POC ABG pO2 ABG pO2 ABG HCO3 ABG O2 Saturation ABG Base Excess POC ABG pCO2 ABG Hemoglobin ABG Oxyhemoglobin ABG Glucose Oxyhemoglobin Sodium Potassium Chloride Carbon Dioxide BUN Creatinine Glucose POC Glucose 120 H 169 H Lactic Acid Calcium Phosphorus Magnesium AST ALT Lactate Dehydrogenase Total Bilirubin Direct Bilirubin CK-MB (CK-2) C-Reactive Protein NT-Pro-B Natriuret Pep Total Protein Albumin Arterial Blood Glucose Urine WBC (Auto) Urine Creatinine 01/02/20 01/02/20 01/02/20 12:15 14:06 17:58 WBC RBC Hgb Hct MCHC RDW MCV MCH Lymph % (Auto) [place] % (Auto) [place] # Eos # Lymph # (Auto) [place] # (Auto) Eos # (Auto) Seg Neutrophils % Seg Neuts % (Manual) Baso # (Auto) Lymphocytes % (Manual) Monocytes % (Manual) Eosinophils % (Manual) Basophils % (Manual) Seg Neutrophils # Seg Neutrophils # Man Lymphocytes # (Manual) Monocytes # (Manual) Eosinophils # (Manual) Nucleated RBC % Basophils # (Manual) PT INR APTT Heparin Anti-Xa Level < 0.10 L ABG pH POC ABG pO2 ABG pO2 ABG HCO3 ABG O2 Saturation ABG Base Excess POC ABG pCO2 ABG Hemoglobin ABG Oxyhemoglobin ABG Glucose Oxyhemoglobin Sodium Potassium Chloride Carbon Dioxide BUN Creatinine Glucose POC Glucose 190 H 198 H Lactic Acid Calcium Phosphorus Magnesium AST ALT Lactate Dehydrogenase Total Bilirubin Direct Bilirubin CK-MB (CK-2) C-Reactive Protein NT-Pro-B Natriuret Pep Total Protein Albumin Arterial Blood Glucose Urine WBC (Auto) Urine Creatinine 01/02/20 01/02/20 01/03/20 21:43 23:33 05:42 WBC RBC Hgb Hct MCHC RDW MCV MCH Lymph % (Auto) [place] % (Auto) [place] # Eos # Lymph # (Auto) [place] # (Auto) Eos # (Auto) Seg Neutrophils % Seg Neuts % (Manual) Baso # (Auto) Lymphocytes % (Manual) Monocytes % (Manual) Eosinophils % (Manual) Basophils % (Manual) Seg Neutrophils # Seg Neutrophils # Man Lymphocytes # (Manual) Monocytes # (Manual) Eosinophils # (Manual) Nucleated RBC % Basophils # (Manual) PT INR APTT Heparin Anti-Xa Level 0.10 L ABG pH POC ABG pO2 ABG pO2 ABG HCO3 ABG O2 Saturation ABG Base Excess POC ABG pCO2 ABG Hemoglobin ABG Oxyhemoglobin ABG Glucose Oxyhemoglobin Sodium Potassium Chloride Carbon Dioxide BUN Creatinine Glucose POC Glucose 180 H 163 H Lactic Acid Calcium Phosphorus Magnesium AST ALT Lactate Dehydrogenase Total Bilirubin Direct Bilirubin CK-MB (CK-2) C-Reactive Protein NT-Pro-B Natriuret Pep Total Protein Albumin Arterial Blood Glucose Urine WBC (Auto) Urine Creatinine 01/03/20 01/03/20 01/03/20 06:50 07:25 07:45 WBC 12.1 H RBC 3.35 L Hgb 9.0 L Hct 28.9 L MCHC 31 L RDW 16.6 H MCV MCH 27 L Lymph % (Auto) 13.0 L [place] % (Auto) 8.6 H [place] # Eos # Lymph # (Auto) [place] # (Auto) 1.0 H Eos # (Auto) Seg Neutrophils % 75.9 H Seg Neuts % (Manual) Baso # (Auto) Lymphocytes % (Manual) Monocytes % (Manual) Eosinophils % (Manual) Basophils % (Manual) Seg Neutrophils # 9.2 H Seg Neutrophils # Man Lymphocytes # (Manual) Monocytes # (Manual) Eosinophils # (Manual) Nucleated RBC % Basophils # (Manual) PT INR APTT Heparin Anti-Xa Level 0.29 L ABG pH POC ABG pO2 ABG pO2 ABG HCO3 ABG O2 Saturation ABG Base Excess POC ABG pCO2 ABG Hemoglobin ABG Oxyhemoglobin ABG Glucose Oxyhemoglobin Sodium Potassium 3.3 L D Chloride Carbon Dioxide 35 H D BUN 23 H Creatinine 0.6 L Glucose 149 H POC Glucose Lactic Acid Calcium Phosphorus Magnesium AST ALT 88 H Lactate Dehydrogenase Total Bilirubin Direct Bilirubin CK-MB (CK-2) C-Reactive Protein NT-Pro-B Natriuret Pep Total Protein 6.2 L Albumin 2.9 L Arterial Blood Glucose Urine WBC (Auto) Urine Creatinine 01/03/20 01/03/20 01/03/20 12:05 17:42 18:30 WBC RBC Hgb Hct MCHC RDW MCV MCH Lymph % (Auto) [place] % (Auto) [place] # Eos # Lymph # (Auto) [place] # (Auto) Eos # (Auto) Seg Neutrophils % Seg Neuts % (Manual) Baso # (Auto) Lymphocytes % (Manual) Monocytes % (Manual) Eosinophils % (Manual) Basophils % (Manual) Seg Neutrophils # Seg Neutrophils # Man Lymphocytes # (Manual) Monocytes # (Manual) Eosinophils # (Manual) Nucleated RBC % Basophils # (Manual) PT INR APTT Heparin Anti-Xa Level ABG pH POC ABG pO2 ABG pO2 70.7 L ABG HCO3 36.1 H ABG O2 Saturation 94.4 L ABG Base Excess 10.0 H POC ABG pCO2 ABG Hemoglobin 9.7 L ABG Oxyhemoglobin ABG Glucose Oxyhemoglobin 91.8 L Sodium Potassium Chloride Carbon Dioxide BUN Creatinine Glucose POC Glucose 128 H 132 H Lactic Acid Calcium Phosphorus Magnesium AST ALT Lactate Dehydrogenase Total Bilirubin Direct Bilirubin CK-MB (CK-2) C-Reactive Protein NT-Pro-B Natriuret Pep Total Protein Albumin Arterial Blood Glucose Urine WBC (Auto) Urine Creatinine 01/04/20 01/04/20 01/04/20 00:10 04:26 05:23 WBC RBC Hgb Hct MCHC RDW MCV MCH Lymph % (Auto) [place] % (Auto) [place] # Eos # Lymph # (Auto) [place] # (Auto) Eos # (Auto) Seg Neutrophils % Seg Neuts % (Manual) Baso # (Auto) Lymphocytes % (Manual) Monocytes % (Manual) Eosinophils % (Manual) Basophils % (Manual) Seg Neutrophils # Seg Neutrophils # Man Lymphocytes # (Manual) Monocytes # (Manual) Eosinophils # (Manual) Nucleated RBC % Basophils # (Manual) PT INR APTT Heparin Anti-Xa Level 0.16 L ABG pH POC ABG pO2 ABG pO2 ABG HCO3 ABG O2 Saturation ABG Base Excess POC ABG pCO2 ABG Hemoglobin ABG Oxyhemoglobin ABG Glucose Oxyhemoglobin Sodium Potassium Chloride Carbon Dioxide BUN Creatinine Glucose POC Glucose 121 H 119 H Lactic Acid Calcium Phosphorus Magnesium AST ALT Lactate Dehydrogenase Total Bilirubin Direct Bilirubin CK-MB (CK-2) C-Reactive Protein NT-Pro-B Natriuret Pep Total Protein Albumin Arterial Blood Glucose Urine WBC (Auto) Urine Creatinine 01/04/20 01/04/20 01/04/20 09:50 09:50 12:18 WBC 15.4 H RBC 3.30 L Hgb 8.7 L Hct 28.2 L MCHC 31 L RDW 17.0 H MCV MCH 26 L Lymph % (Auto) [place] % (Auto) 7.6 H [place] # Eos # Lymph # (Auto) [place] # (Auto) 1.2 H Eos # (Auto) Seg Neutrophils % 75.4 H Seg Neuts % (Manual) Baso # (Auto) Lymphocytes % (Manual) Monocytes % (Manual) Eosinophils % (Manual) Basophils % (Manual) Seg Neutrophils # 11.6 H Seg Neutrophils # Man Lymphocytes # (Manual) Monocytes # (Manual) Eosinophils # (Manual) Nucleated RBC % Basophils # (Manual) PT INR APTT Heparin Anti-Xa Level ABG pH POC ABG pO2 ABG pO2 ABG HCO3 ABG O2 Saturation ABG Base Excess POC ABG pCO2 ABG Hemoglobin ABG Oxyhemoglobin ABG Glucose Oxyhemoglobin Sodium 148 H Potassium 3.5 L Chloride Carbon Dioxide 32 H BUN Creatinine 0.6 L Glucose 114 H POC Glucose 111 H Lactic Acid Calcium Phosphorus Magnesium AST ALT 59 H Lactate Dehydrogenase Total Bilirubin Direct Bilirubin CK-MB (CK-2) C-Reactive Protein NT-Pro-B Natriuret Pep Total Protein Albumin 2.6 L Arterial Blood Glucose Urine WBC (Auto) Urine Creatinine 01/05/20 01/05/20 01/05/20 04:05 04:05 05:19 WBC 11.7 H RBC 3.50 L Hgb 9.3 L Hct 29.9 L MCHC 31 L RDW 16.6 H MCV MCH 27 L Lymph % (Auto) 13.1 L [place] % (Auto) 9.7 H [place] # Eos # Lymph # (Auto) [place] # (Auto) 1.1 H Eos # (Auto) Seg Neutrophils % 74.0 H Seg Neuts % (Manual) Baso # (Auto) Lymphocytes % (Manual) Monocytes % (Manual) Eosinophils % (Manual) Basophils % (Manual) Seg Neutrophils # 8.6 H Seg Neutrophils # Man Lymphocytes # (Manual) Monocytes # (Manual) Eosinophils # (Manual) Nucleated RBC % Basophils # (Manual) PT INR APTT Heparin Anti-Xa Level ABG pH POC ABG pO2 ABG pO2 ABG HCO3 ABG O2 Saturation ABG Base Excess POC ABG pCO2 ABG Hemoglobin ABG Oxyhemoglobin ABG Glucose Oxyhemoglobin Sodium 151 H Potassium Chloride Carbon Dioxide 34 H BUN Creatinine 0.7 L Glucose POC Glucose 112 H Lactic Acid Calcium Phosphorus Magnesium AST ALT 59 H Lactate Dehydrogenase Total Bilirubin Direct Bilirubin CK-MB (CK-2) C-Reactive Protein NT-Pro-B Natriuret Pep Total Protein 5.8 L Albumin 2.6 L Arterial Blood Glucose Urine WBC (Auto) Urine Creatinine 01/05/20 01/06/20 01/06/20 16:04 00:23 04:44 WBC RBC 3.36 L Hgb 8.9 L Hct 28.7 L MCHC 31 L RDW 16.9 H MCV MCH 26 L Lymph % (Auto) [place] % (Auto) 9.4 H [place] # Eos # Lymph # (Auto) [place] # (Auto) Eos # (Auto) Seg Neutrophils % Seg Neuts % (Manual) Baso # (Auto) Lymphocytes % (Manual) Monocytes % (Manual) Eosinophils % (Manual) Basophils % (Manual) Seg Neutrophils # Seg Neutrophils # Man Lymphocytes # (Manual) Monocytes # (Manual) Eosinophils # (Manual) Nucleated RBC % Basophils # (Manual) PT INR APTT Heparin Anti-Xa Level ABG pH POC ABG pO2 ABG pO2 ABG HCO3 ABG O2 Saturation ABG Base Excess POC ABG pCO2 ABG Hemoglobin ABG Oxyhemoglobin ABG Glucose Oxyhemoglobin Sodium 151 H Potassium 3.2 L Chloride Carbon Dioxide 34 H BUN Creatinine 0.6 L Glucose POC Glucose 107 H Lactic Acid Calcium Phosphorus Magnesium AST ALT Lactate Dehydrogenase Total Bilirubin Direct Bilirubin CK-MB (CK-2) C-Reactive Protein NT-Pro-B Natriuret Pep Total Protein Albumin Arterial Blood Glucose Urine WBC (Auto) Urine Creatinine 01/06/20 01/06/20 01/06/20 04:44 05:33 12:04 WBC RBC Hgb Hct MCHC RDW MCV MCH Lymph % (Auto) [place] % (Auto) [place] # Eos # Lymph # (Auto) [place] # (Auto) Eos # (Auto) Seg Neutrophils % Seg Neuts % (Manual) Baso # (Auto) Lymphocytes % (Manual) Monocytes % (Manual) Eosinophils % (Manual) Basophils % (Manual) Seg Neutrophils # Seg Neutrophils # Man Lymphocytes # (Manual) Monocytes # (Manual) Eosinophils # (Manual) Nucleated RBC % Basophils # (Manual) PT INR APTT Heparin Anti-Xa Level ABG pH POC ABG pO2 ABG pO2 ABG HCO3 ABG O2 Saturation ABG Base Excess POC ABG pCO2 ABG Hemoglobin ABG Oxyhemoglobin ABG Glucose Oxyhemoglobin Sodium 151 H Potassium 3.4 L Chloride Carbon Dioxide 33 H BUN Creatinine 0.6 L Glucose 118 H POC Glucose 118 H 123 H Lactic Acid Calcium Phosphorus Magnesium AST ALT Lactate Dehydrogenase Total Bilirubin Direct Bilirubin CK-MB (CK-2) C-Reactive Protein NT-Pro-B Natriuret Pep Total Protein 6.2 L Albumin 2.6 L Arterial Blood Glucose Urine WBC (Auto) Urine Creatinine 01/06/20 01/07/20 01/07/20 17:54 00:06 04:10 WBC RBC 3.42 L Hgb 8.9 L Hct 29.0 L MCHC 31 L RDW 17.1 H MCV MCH 26 L Lymph % (Auto) [place] % (Auto) 8.4 H [place] # Eos # Lymph # (Auto) [place] # (Auto) Eos # (Auto) Seg Neutrophils % Seg Neuts % (Manual) Baso # (Auto) Lymphocytes % (Manual) Monocytes % (Manual) Eosinophils % (Manual) Basophils % (Manual) Seg Neutrophils # Seg Neutrophils # Man Lymphocytes # (Manual) Monocytes # (Manual) Eosinophils # (Manual) Nucleated RBC % Basophils # (Manual) PT INR APTT Heparin Anti-Xa Level ABG pH POC ABG pO2 ABG pO2 ABG HCO3 ABG O2 Saturation ABG Base Excess POC ABG pCO2 ABG Hemoglobin ABG Oxyhemoglobin ABG Glucose Oxyhemoglobin Sodium Potassium Chloride Carbon Dioxide BUN Creatinine Glucose POC Glucose 112 H 126 H Lactic Acid Calcium Phosphorus Magnesium AST ALT Lactate Dehydrogenase Total Bilirubin Direct Bilirubin CK-MB (CK-2) C-Reactive Protein NT-Pro-B Natriuret Pep Total Protein Albumin Arterial Blood Glucose Urine WBC (Auto) Urine Creatinine 01/07/20 01/07/20 01/07/20 04:10 05:59 12:27 WBC RBC Hgb Hct MCHC RDW MCV MCH Lymph % (Auto) [place] % (Auto) [place] # Eos # Lymph # (Auto) [place] # (Auto) Eos # (Auto) Seg Neutrophils % Seg Neuts % (Manual) Baso # (Auto) Lymphocytes % (Manual) Monocytes % (Manual) Eosinophils % (Manual) Basophils % (Manual) Seg Neutrophils # Seg Neutrophils # Man Lymphocytes # (Manual) Monocytes # (Manual) Eosinophils # (Manual) Nucleated RBC % Basophils # (Manual) PT INR APTT Heparin Anti-Xa Level ABG pH POC ABG pO2 ABG pO2 ABG HCO3 ABG O2 Saturation ABG Base Excess POC ABG pCO2 ABG Hemoglobin ABG Oxyhemoglobin ABG Glucose Oxyhemoglobin Sodium 153 H Potassium 3.5 L Chloride Carbon Dioxide 34 H BUN Creatinine 0.6 L Glucose 121 H POC Glucose 121 H 126 H Lactic Acid Calcium Phosphorus Magnesium AST ALT Lactate Dehydrogenase Total Bilirubin Direct Bilirubin CK-MB (CK-2) C-Reactive Protein NT-Pro-B Natriuret Pep Total Protein 5.9 L Albumin 2.4 L Arterial Blood Glucose Urine WBC (Auto) Urine Creatinine 01/07/20 01/08/20 01/08/20 18:12 00:03 05:41 WBC RBC Hgb Hct MCHC RDW MCV MCH Lymph % (Auto) [place] % (Auto) [place] # Eos # Lymph # (Auto) [place] # (Auto) Eos # (Auto) Seg Neutrophils % Seg Neuts % (Manual) Baso # (Auto) Lymphocytes % (Manual) Monocytes % (Manual) Eosinophils % (Manual) Basophils % (Manual) Seg Neutrophils # Seg Neutrophils # Man Lymphocytes # (Manual) Monocytes # (Manual) Eosinophils # (Manual) Nucleated RBC % Basophils # (Manual) PT INR APTT Heparin Anti-Xa Level ABG pH POC ABG pO2 ABG pO2 ABG HCO3 ABG O2 Saturation ABG Base Excess POC ABG pCO2 ABG Hemoglobin ABG Oxyhemoglobin ABG Glucose Oxyhemoglobin Sodium Potassium Chloride Carbon Dioxide BUN Creatinine Glucose POC Glucose 124 H 130 H 138 H Lactic Acid Calcium Phosphorus Magnesium AST ALT Lactate Dehydrogenase Total Bilirubin Direct Bilirubin CK-MB (CK-2) C-Reactive Protein NT-Pro-B Natriuret Pep Total Protein Albumin Arterial Blood Glucose Urine WBC (Auto) Urine Creatinine 01/08/20 01/08/20 01/08/20 09:28 11:42 18:21 WBC RBC Hgb Hct MCHC RDW MCV MCH Lymph % (Auto) [place] % (Auto) [place] # Eos # Lymph # (Auto) [place] # (Auto) Eos # (Auto) Seg Neutrophils % Seg Neuts % (Manual) Baso # (Auto) Lymphocytes % (Manual) Monocytes % (Manual) Eosinophils % (Manual) Basophils % (Manual) Seg Neutrophils # Seg Neutrophils # Man Lymphocytes # (Manual) Monocytes # (Manual) Eosinophils # (Manual) Nucleated RBC % Basophils # (Manual) PT INR APTT Heparin Anti-Xa Level ABG pH POC ABG pO2 ABG pO2 ABG HCO3 ABG O2 Saturation ABG Base Excess POC ABG pCO2 ABG Hemoglobin ABG Oxyhemoglobin ABG Glucose Oxyhemoglobin Sodium Potassium Chloride Carbon Dioxide BUN Creatinine Glucose POC Glucose 181 H 150 H 129 H Lactic Acid Calcium Phosphorus Magnesium AST ALT Lactate Dehydrogenase Total Bilirubin Direct Bilirubin CK-MB (CK-2) C-Reactive Protein NT-Pro-B Natriuret Pep Total Protein Albumin Arterial Blood Glucose Urine WBC (Auto) Urine Creatinine 01/08/20 01/08/20 01/09/20 19:25 23:55 04:11 WBC RBC 3.43 L Hgb 8.9 L Hct 28.7 L MCHC 31 L RDW 17.6 H MCV MCH 26 L Lymph % (Auto) [place] % (Auto) 8.6 H [place] # Eos # Lymph # (Auto) [place] # (Auto) Eos # (Auto) Seg Neutrophils % Seg Neuts % (Manual) Baso # (Auto) Lymphocytes % (Manual) Monocytes % (Manual) Eosinophils % (Manual) Basophils % (Manual) Seg Neutrophils # Seg Neutrophils # Man Lymphocytes # (Manual) Monocytes # (Manual) Eosinophils # (Manual) Nucleated RBC % Basophils # (Manual) PT INR APTT Heparin Anti-Xa Level ABG pH POC ABG pO2 ABG pO2 ABG HCO3 ABG O2 Saturation ABG Base Excess POC ABG pCO2 ABG Hemoglobin ABG Oxyhemoglobin ABG Glucose Oxyhemoglobin Sodium Potassium Chloride Carbon Dioxide BUN Creatinine 0.7 L Glucose 117 H POC Glucose 132 H Lactic Acid Calcium Phosphorus Magnesium AST ALT Lactate Dehydrogenase Total Bilirubin Direct Bilirubin CK-MB (CK-2) C-Reactive Protein NT-Pro-B Natriuret Pep Total Protein Albumin Arterial Blood Glucose Urine WBC (Auto) Urine Creatinine 01/09/20 01/09/20 01/09/20 04:11 05:38 22:58 WBC RBC Hgb Hct MCHC RDW MCV MCH Lymph % (Auto) [place] % (Auto) [place] # Eos # Lymph # (Auto) [place] # (Auto) Eos # (Auto) Seg Neutrophils % Seg Neuts % (Manual) Baso # (Auto) Lymphocytes % (Manual) Monocytes % (Manual) Eosinophils % (Manual) Basophils % (Manual) Seg Neutrophils # Seg Neutrophils # Man Lymphocytes # (Manual) Monocytes # (Manual) Eosinophils # (Manual) Nucleated RBC % Basophils # (Manual) PT INR APTT Heparin Anti-Xa Level ABG pH POC ABG pO2 ABG pO2 ABG HCO3 ABG O2 Saturation ABG Base Excess POC ABG pCO2 ABG Hemoglobin ABG Oxyhemoglobin ABG Glucose Oxyhemoglobin Sodium 147 H Potassium 3.3 L D Chloride Carbon Dioxide 32 H BUN Creatinine 0.6 L Glucose 106 H POC Glucose 107 H 113 H Lactic Acid Calcium Phosphorus Magnesium AST ALT Lactate Dehydrogenase Total Bilirubin Direct Bilirubin CK-MB (CK-2) C-Reactive Protein NT-Pro-B Natriuret Pep Total Protein Albumin Arterial Blood Glucose Urine WBC (Auto) Urine Creatinine 01/10/20 01/10/20 01/10/20 04:05 11:36 17:54 WBC RBC Hgb Hct MCHC RDW MCV MCH Lymph % (Auto) [place] % (Auto) [place] # Eos # Lymph # (Auto) [place] # (Auto) Eos # (Auto) Seg Neutrophils % Seg Neuts % (Manual) Baso # (Auto) Lymphocytes % (Manual) Monocytes % (Manual) Eosinophils % (Manual) Basophils % (Manual) Seg Neutrophils # Seg Neutrophils # Man Lymphocytes # (Manual) Monocytes # (Manual) Eosinophils # (Manual) Nucleated RBC % Basophils # (Manual) PT INR APTT Heparin Anti-Xa Level ABG pH POC ABG pO2 ABG pO2 ABG HCO3 ABG O2 Saturation ABG Base Excess POC ABG pCO2 ABG Hemoglobin ABG Oxyhemoglobin ABG Glucose Oxyhemoglobin Sodium Potassium Chloride Carbon Dioxide BUN Creatinine 0.7 L Glucose 110 H POC Glucose 129 H 117 H Lactic Acid Calcium Phosphorus Magnesium AST ALT Lactate Dehydrogenase Total Bilirubin Direct Bilirubin CK-MB (CK-2) C-Reactive Protein NT-Pro-B Natriuret Pep Total Protein Albumin Arterial Blood Glucose Urine WBC (Auto) Urine Creatinine 01/10/20 01/11/20 01/11/20 23:52 03:19 12:09 WBC RBC Hgb Hct MCHC RDW MCV MCH Lymph % (Auto) [place] % (Auto) [place] # Eos # Lymph # (Auto) [place] # (Auto) Eos # (Auto) Seg Neutrophils % Seg Neuts % (Manual) Baso # (Auto) Lymphocytes % (Manual) Monocytes % (Manual) Eosinophils % (Manual) Basophils % (Manual) Seg Neutrophils # Seg Neutrophils # Man Lymphocytes # (Manual) Monocytes # (Manual) Eosinophils # (Manual) Nucleated RBC % Basophils # (Manual) PT INR APTT Heparin Anti-Xa Level ABG pH POC ABG pO2 ABG pO2 ABG HCO3 ABG O2 Saturation ABG Base Excess POC ABG pCO2 ABG Hemoglobin ABG Oxyhemoglobin ABG Glucose Oxyhemoglobin Sodium Potassium Chloride Carbon Dioxide BUN Creatinine Glucose POC Glucose 117 H 136 H 115 H Lactic Acid Calcium Phosphorus Magnesium AST ALT Lactate Dehydrogenase Total Bilirubin Direct Bilirubin CK-MB (CK-2) C-Reactive Protein NT-Pro-B Natriuret Pep Total Protein Albumin Arterial Blood Glucose Urine WBC (Auto) Urine Creatinine 01/11/20 01/11/20 01/12/20 18:27 23:28 00:23 WBC RBC Hgb 9.8 L Hct 31.6 L MCHC 31 L RDW 17.8 H MCV 83 L MCH 26 L Lymph % (Auto) [place] % (Auto) 8.0 H [place] # Eos # Lymph # (Auto) [place] # (Auto) Eos # (Auto) Seg Neutrophils % Seg Neuts % (Manual) Baso # (Auto) Lymphocytes % (Manual) Monocytes % (Manual) Eosinophils % (Manual) Basophils % (Manual) Seg Neutrophils # Seg Neutrophils # Man Lymphocytes # (Manual) Monocytes # (Manual) Eosinophils # (Manual) Nucleated RBC % Basophils # (Manual) PT INR APTT Heparin Anti-Xa Level ABG pH POC ABG pO2 ABG pO2 ABG HCO3 ABG O2 Saturation ABG Base Excess POC ABG pCO2 ABG Hemoglobin ABG Oxyhemoglobin ABG Glucose Oxyhemoglobin Sodium Potassium Chloride Carbon Dioxide BUN Creatinine Glucose POC Glucose 118 H 122 H Lactic Acid Calcium Phosphorus Magnesium AST ALT Lactate Dehydrogenase Total Bilirubin Direct Bilirubin CK-MB (CK-2) C-Reactive Protein NT-Pro-B Natriuret Pep Total Protein Albumin Arterial Blood Glucose Urine WBC (Auto) Urine Creatinine 01/12/20 01/12/20 01/12/20 00:23 04:18 04:18 WBC RBC Hgb 9.6 L Hct 30.9 L MCHC 31 L RDW 17.3 H MCV 81 L MCH 25 L Lymph % (Auto) [place] % (Auto) [place] # Eos # Lymph # (Auto) [place] # (Auto) Eos # (Auto) Seg Neutrophils % Seg Neuts % (Manual) Baso # (Auto) Lymphocytes % (Manual) Monocytes % (Manual) Eosinophils % (Manual) Basophils % (Manual) Seg Neutrophils # Seg Neutrophils # Man Lymphocytes # (Manual) Monocytes # (Manual) Eosinophils # (Manual) Nucleated RBC % Basophils # (Manual) PT INR APTT Heparin Anti-Xa Level ABG pH POC ABG pO2 ABG pO2 ABG HCO3 ABG O2 Saturation ABG Base Excess POC ABG pCO2 ABG Hemoglobin ABG Oxyhemoglobin ABG Glucose Oxyhemoglobin Sodium Potassium Chloride Carbon Dioxide BUN Creatinine 0.7 L 0.7 L Glucose 111 H 108 H POC Glucose Lactic Acid Calcium Phosphorus Magnesium AST ALT Lactate Dehydrogenase Total Bilirubin Direct Bilirubin CK-MB (CK-2) C-Reactive Protein NT-Pro-B Natriuret Pep Total Protein Albumin 2.6 L Arterial Blood Glucose Urine WBC (Auto) Urine Creatinine 01/12/20 01/12/20 01/12/20 06:03 12:27 13:58 WBC RBC Hgb Hct MCHC RDW MCV MCH Lymph % (Auto) [place] % (Auto) [place] # Eos # Lymph # (Auto) [place] # (Auto) Eos # (Auto) Seg Neutrophils % Seg Neuts % (Manual) Baso # (Auto) Lymphocytes % (Manual) Monocytes % (Manual) Eosinophils % (Manual) Basophils % (Manual) Seg Neutrophils # Seg Neutrophils # Man Lymphocytes # (Manual) Monocytes # (Manual) Eosinophils # (Manual) Nucleated RBC % Basophils # (Manual) PT INR APTT Heparin Anti-Xa Level ABG pH 7.453 H POC ABG pO2 76.6 L ABG pO2 ABG HCO3 ABG O2 Saturation ABG Base Excess POC ABG pCO2 ABG Hemoglobin 10.3 L ABG Oxyhemoglobin ABG Glucose 99 H Oxyhemoglobin Sodium Potassium Chloride Carbon Dioxide BUN Creatinine Glucose POC Glucose 128 H 121 H Lactic Acid Calcium Phosphorus Magnesium AST ALT Lactate Dehydrogenase Total Bilirubin Direct Bilirubin CK-MB (CK-2) C-Reactive Protein NT-Pro-B Natriuret Pep Total Protein Albumin Arterial Blood Glucose 99 H Urine WBC (Auto) Urine Creatinine 01/12/20 01/13/20 01/13/20 18:24 12:01 17:46 WBC RBC Hgb Hct MCHC RDW MCV MCH Lymph % (Auto) [place] % (Auto) [place] # Eos # Lymph # (Auto) [place] # (Auto) Eos # (Auto) Seg Neutrophils % Seg Neuts % (Manual) Baso # (Auto) Lymphocytes % (Manual) Monocytes % (Manual) Eosinophils % (Manual) Basophils % (Manual) Seg Neutrophils # Seg Neutrophils # Man Lymphocytes # (Manual) Monocytes # (Manual) Eosinophils # (Manual) Nucleated RBC % Basophils # (Manual) PT INR APTT Heparin Anti-Xa Level ABG pH POC ABG pO2 ABG pO2 ABG HCO3 ABG O2 Saturation ABG Base Excess POC ABG pCO2 ABG Hemoglobin ABG Oxyhemoglobin ABG Glucose Oxyhemoglobin Sodium Potassium Chloride Carbon Dioxide BUN Creatinine Glucose POC Glucose 119 H 107 H 124 H Lactic Acid Calcium Phosphorus Magnesium AST ALT Lactate Dehydrogenase Total Bilirubin Direct Bilirubin CK-MB (CK-2) C-Reactive Protein NT-Pro-B Natriuret Pep Total Protein Albumin Arterial Blood Glucose Urine WBC (Auto) Urine Creatinine 01/13/20 01/14/20 01/14/20 20:40 00:10 05:33 WBC RBC Hgb Hct MCHC RDW MCV MCH Lymph % (Auto) [place] % (Auto) [place] # Eos # Lymph # (Auto) [place] # (Auto) Eos # (Auto) Seg Neutrophils % Seg Neuts % (Manual) Baso # (Auto) Lymphocytes % (Manual) Monocytes % (Manual) Eosinophils % (Manual) Basophils % (Manual) Seg Neutrophils # Seg Neutrophils # Man Lymphocytes # (Manual) Monocytes # (Manual) Eosinophils # (Manual) Nucleated RBC % Basophils # (Manual) PT INR APTT Heparin Anti-Xa Level ABG pH POC ABG pO2 ABG pO2 65.3 L ABG HCO3 31.8 H ABG O2 Saturation 93.5 L ABG Base Excess 6.7 H POC ABG pCO2 ABG Hemoglobin 13.3 L ABG Oxyhemoglobin ABG Glucose Oxyhemoglobin 90.9 L Sodium Potassium Chloride Carbon Dioxide BUN Creatinine Glucose POC Glucose 111 H 111 H Lactic Acid Calcium Phosphorus Magnesium AST ALT Lactate Dehydrogenase Total Bilirubin Direct Bilirubin CK-MB (CK-2) C-Reactive Protein NT-Pro-B Natriuret Pep Total Protein Albumin Arterial Blood Glucose Urine WBC (Auto) Urine Creatinine 01/14/20 01/14/20 01/14/20 12:10 16:14 16:14 WBC RBC Hgb 10.6 L Hct 34.2 L MCHC 31 L RDW 18.3 H MCV 83 L MCH 26 L Lymph % (Auto) [place] % (Auto) 7.4 H [place] # Eos # Lymph # (Auto) [place] # (Auto) Eos # (Auto) Seg Neutrophils % 71.9 H Seg Neuts % (Manual) Baso # (Auto) Lymphocytes % (Manual) Monocytes % (Manual) Eosinophils % (Manual) Basophils % (Manual) Seg Neutrophils # Seg Neutrophils # Man Lymphocytes # (Manual) Monocytes # (Manual) Eosinophils # (Manual) Nucleated RBC % Basophils # (Manual) PT INR APTT Heparin Anti-Xa Level ABG pH POC ABG pO2 ABG pO2 ABG HCO3 ABG O2 Saturation ABG Base Excess POC ABG pCO2 ABG Hemoglobin ABG Oxyhemoglobin ABG Glucose Oxyhemoglobin Sodium Potassium Chloride Carbon Dioxide 31 H BUN Creatinine 0.6 L Glucose 131 H POC Glucose 139 H Lactic Acid Calcium Phosphorus Magnesium AST ALT Lactate Dehydrogenase Total Bilirubin Direct Bilirubin CK-MB (CK-2) C-Reactive Protein NT-Pro-B Natriuret Pep Total Protein Albumin Arterial Blood Glucose Urine WBC (Auto) Urine Creatinine 01/14/20 01/15/20 01/15/20 18:05 00:52 05:35 WBC RBC Hgb Hct MCHC RDW MCV MCH Lymph % (Auto) [place] % (Auto) [place] # Eos # Lymph # (Auto) [place] # (Auto) Eos # (Auto) Seg Neutrophils % Seg Neuts % (Manual) Baso # (Auto) Lymphocytes % (Manual) Monocytes % (Manual) Eosinophils % (Manual) Basophils % (Manual) Seg Neutrophils # Seg Neutrophils # Man Lymphocytes # (Manual) Monocytes # (Manual) Eosinophils # (Manual) Nucleated RBC % Basophils # (Manual) PT INR APTT Heparin Anti-Xa Level ABG pH POC ABG pO2 ABG pO2 ABG HCO3 ABG O2 Saturation ABG Base Excess POC ABG pCO2 ABG Hemoglobin ABG Oxyhemoglobin ABG Glucose Oxyhemoglobin Sodium Potassium Chloride Carbon Dioxide BUN Creatinine Glucose POC Glucose 147 H 140 H 159 H Lactic Acid Calcium Phosphorus Magnesium AST ALT Lactate Dehydrogenase Total Bilirubin Direct Bilirubin CK-MB (CK-2) C-Reactive Protein NT-Pro-B Natriuret Pep Total Protein Albumin Arterial Blood Glucose Urine WBC (Auto) Urine Creatinine 01/15/20 01/15/20 01/16/20 12:52 17:43 00:32 WBC RBC Hgb Hct MCHC RDW MCV MCH Lymph % (Auto) [place] % (Auto) [place] # Eos # Lymph # (Auto) [place] # (Auto) Eos # (Auto) Seg Neutrophils % Seg Neuts % (Manual) Baso # (Auto) Lymphocytes % (Manual) Monocytes % (Manual) Eosinophils % (Manual) Basophils % (Manual) Seg Neutrophils # Seg Neutrophils # Man Lymphocytes # (Manual) Monocytes # (Manual) Eosinophils # (Manual) Nucleated RBC % Basophils # (Manual) PT INR APTT Heparin Anti-Xa Level ABG pH POC ABG pO2 ABG pO2 ABG HCO3 ABG O2 Saturation ABG Base Excess POC ABG pCO2 ABG Hemoglobin ABG Oxyhemoglobin ABG Glucose Oxyhemoglobin Sodium Potassium Chloride Carbon Dioxide BUN Creatinine Glucose POC Glucose 164 H 167 H 153 H Lactic Acid Calcium Phosphorus Magnesium AST ALT Lactate Dehydrogenase Total Bilirubin Direct Bilirubin CK-MB (CK-2) C-Reactive Protein NT-Pro-B Natriuret Pep Total Protein Albumin Arterial Blood Glucose Urine WBC (Auto) Urine Creatinine 01/16/20 01/16/20 01/17/20 05:46 11:48 06:38 WBC RBC Hgb Hct MCHC RDW MCV MCH Lymph % (Auto) [place] % (Auto) [place] # Eos # Lymph # (Auto) [place] # (Auto) Eos # (Auto) Seg Neutrophils % Seg Neuts % (Manual) Baso # (Auto) Lymphocytes % (Manual) Monocytes % (Manual) Eosinophils % (Manual) Basophils % (Manual) Seg Neutrophils # Seg Neutrophils # Man Lymphocytes # (Manual) Monocytes # (Manual) Eosinophils # (Manual) Nucleated RBC % Basophils # (Manual) PT INR APTT Heparin Anti-Xa Level ABG pH POC ABG pO2 ABG pO2 ABG HCO3 ABG O2 Saturation ABG Base Excess POC ABG pCO2 ABG Hemoglobin ABG Oxyhemoglobin ABG Glucose Oxyhemoglobin Sodium Potassium Chloride Carbon Dioxide BUN Creatinine Glucose POC Glucose 163 H 155 H 116 H Lactic Acid Calcium Phosphorus Magnesium AST ALT Lactate Dehydrogenase Total Bilirubin Direct Bilirubin CK-MB (CK-2) C-Reactive Protein NT-Pro-B Natriuret Pep Total Protein Albumin Arterial Blood Glucose Urine WBC (Auto) Urine Creatinine 01/17/20 01/17/20 01/18/20 11:36 17:43 00:12 WBC RBC Hgb Hct MCHC RDW MCV MCH Lymph % (Auto) [place] % (Auto) [place] # Eos # Lymph # (Auto) [place] # (Auto) Eos # (Auto) Seg Neutrophils % Seg Neuts % (Manual) Baso # (Auto) Lymphocytes % (Manual) Monocytes % (Manual) Eosinophils % (Manual) Basophils % (Manual) Seg Neutrophils # Seg Neutrophils # Man Lymphocytes # (Manual) Monocytes # (Manual) Eosinophils # (Manual) Nucleated RBC % Basophils # (Manual) PT INR APTT Heparin Anti-Xa Level ABG pH POC ABG pO2 ABG pO2 ABG HCO3 ABG O2 Saturation ABG Base Excess POC ABG pCO2 ABG Hemoglobin ABG Oxyhemoglobin ABG Glucose Oxyhemoglobin Sodium Potassium Chloride Carbon Dioxide BUN Creatinine Glucose POC Glucose 110 H 134 H 108 H Lactic Acid Calcium Phosphorus Magnesium AST ALT Lactate Dehydrogenase Total Bilirubin Direct Bilirubin CK-MB (CK-2) C-Reactive Protein NT-Pro-B Natriuret Pep Total Protein Albumin Arterial Blood Glucose Urine WBC (Auto) Urine Creatinine 01/18/20 01/18/20 01/18/20 05:37 06:46 06:46 WBC RBC Hgb 10.1 L Hct 32.2 L MCHC 31 L RDW 18.1 H MCV 81 L MCH 25 L Lymph % (Auto) [place] % (Auto) [place] # Eos # Lymph # (Auto) [place] # (Auto) Eos # (Auto) Seg Neutrophils % 71.9 H Seg Neuts % (Manual) Baso # (Auto) Lymphocytes % (Manual) Monocytes % (Manual) Eosinophils % (Manual) Basophils % (Manual) Seg Neutrophils # Seg Neutrophils # Man Lymphocytes # (Manual) Monocytes # (Manual) Eosinophils # (Manual) Nucleated RBC % Basophils # (Manual) PT INR APTT Heparin Anti-Xa Level ABG pH POC ABG pO2 ABG pO2 ABG HCO3 ABG O2 Saturation ABG Base Excess POC ABG pCO2 ABG Hemoglobin ABG Oxyhemoglobin ABG Glucose Oxyhemoglobin Sodium Potassium Chloride Carbon Dioxide BUN Creatinine 0.7 L Glucose 155 H POC Glucose 168 H Lactic Acid Calcium Phosphorus Magnesium AST ALT Lactate Dehydrogenase Total Bilirubin Direct Bilirubin CK-MB (CK-2) C-Reactive Protein NT-Pro-B Natriuret Pep Total Protein Albumin Arterial Blood Glucose Urine WBC (Auto) Urine Creatinine 01/18/20 01/18/20 01/18/20 12:05 17:14 23:28 WBC RBC Hgb Hct MCHC RDW MCV MCH Lymph % (Auto) [place] % (Auto) [place] # Eos # Lymph # (Auto) [place] # (Auto) Eos # (Auto) Seg Neutrophils % Seg Neuts % (Manual) Baso # (Auto) Lymphocytes % (Manual) Monocytes % (Manual) Eosinophils % (Manual) Basophils % (Manual) Seg Neutrophils # Seg Neutrophils # Man Lymphocytes # (Manual) Monocytes # (Manual) Eosinophils # (Manual) Nucleated RBC % Basophils # (Manual) PT INR APTT Heparin Anti-Xa Level ABG pH POC ABG pO2 ABG pO2 ABG HCO3 ABG O2 Saturation ABG Base Excess POC ABG pCO2 ABG Hemoglobin ABG Oxyhemoglobin ABG Glucose Oxyhemoglobin Sodium Potassium Chloride Carbon Dioxide BUN Creatinine Glucose POC Glucose 128 H 126 H 128 H Lactic Acid Calcium Phosphorus Magnesium AST ALT Lactate Dehydrogenase Total Bilirubin Direct Bilirubin CK-MB (CK-2) C-Reactive Protein NT-Pro-B Natriuret Pep Total Protein Albumin Arterial Blood Glucose Urine WBC (Auto) Urine Creatinine 01/19/20 01/19/20 01/19/20 05:39 12:33 17:36 WBC RBC Hgb Hct MCHC RDW MCV MCH Lymph % (Auto) [place] % (Auto) [place] # Eos # Lymph # (Auto) [place] # (Auto) Eos # (Auto) Seg Neutrophils % Seg Neuts % (Manual) Baso # (Auto) Lymphocytes % (Manual) Monocytes % (Manual) Eosinophils % (Manual) Basophils % (Manual) Seg Neutrophils # Seg Neutrophils # Man Lymphocytes # (Manual) Monocytes # (Manual) Eosinophils # (Manual) Nucleated RBC % Basophils # (Manual) PT INR APTT Heparin Anti-Xa Level ABG pH POC ABG pO2 ABG pO2 ABG HCO3 ABG O2 Saturation ABG Base Excess POC ABG pCO2 ABG Hemoglobin ABG Oxyhemoglobin ABG Glucose Oxyhemoglobin Sodium Potassium Chloride Carbon Dioxide BUN Creatinine Glucose POC Glucose 164 H 171 H 152 H Lactic Acid Calcium Phosphorus Magnesium AST ALT Lactate Dehydrogenase Total Bilirubin Direct Bilirubin CK-MB (CK-2) C-Reactive Protein NT-Pro-B Natriuret Pep Total Protein Albumin Arterial Blood Glucose Urine WBC (Auto) Urine Creatinine 01/20/20 01/20/20 01/20/20 00:12 05:20 05:35 WBC RBC Hgb 9.2 L Hct 29.4 L MCHC 31 L RDW 17.9 H MCV 81 L MCH 25 L Lymph % (Auto) [place] % (Auto) [place] # Eos # Lymph # (Auto) [place] # (Auto) Eos # (Auto) Seg Neutrophils % Seg Neuts % (Manual) Baso # (Auto) Lymphocytes % (Manual) Monocytes % (Manual) Eosinophils % (Manual) Basophils % (Manual) Seg Neutrophils # Seg Neutrophils # Man Lymphocytes # (Manual) Monocytes # (Manual) Eosinophils # (Manual) Nucleated RBC % Basophils # (Manual) PT INR APTT Heparin Anti-Xa Level ABG pH POC ABG pO2 ABG pO2 ABG HCO3 ABG O2 Saturation ABG Base Excess POC ABG pCO2 ABG Hemoglobin ABG Oxyhemoglobin ABG Glucose Oxyhemoglobin Sodium Potassium Chloride Carbon Dioxide BUN Creatinine Glucose POC Glucose 120 H 136 H Lactic Acid Calcium Phosphorus Magnesium AST ALT Lactate Dehydrogenase Total Bilirubin Direct Bilirubin CK-MB (CK-2) C-Reactive Protein NT-Pro-B Natriuret Pep Total Protein Albumin Arterial Blood Glucose Urine WBC (Auto) Urine Creatinine 01/20/20 01/20/20 01/20/20 05:40 11:58 14:55 WBC RBC Hgb 9.0 L Hct 28.3 L MCHC RDW MCV MCH Lymph % (Auto) [place] % (Auto) [place] # Eos # Lymph # (Auto) [place] # (Auto) Eos # (Auto) Seg Neutrophils % Seg Neuts % (Manual) Baso # (Auto) Lymphocytes % (Manual) Monocytes % (Manual) Eosinophils % (Manual) Basophils % (Manual) Seg Neutrophils # Seg Neutrophils # Man Lymphocytes # (Manual) Monocytes # (Manual) Eosinophils # (Manual) Nucleated RBC % Basophils # (Manual) PT INR APTT Heparin Anti-Xa Level ABG pH POC ABG pO2 ABG pO2 ABG HCO3 ABG O2 Saturation ABG Base Excess POC ABG pCO2 ABG Hemoglobin ABG Oxyhemoglobin ABG Glucose Oxyhemoglobin Sodium Potassium Chloride Carbon Dioxide 32 H BUN 22 H Creatinine 0.7 L Glucose 128 H POC Glucose 152 H Lactic Acid Calcium Phosphorus Magnesium AST ALT Lactate Dehydrogenase Total Bilirubin Direct Bilirubin CK-MB (CK-2) C-Reactive Protein NT-Pro-B Natriuret Pep Total Protein Albumin Arterial Blood Glucose Urine WBC (Auto) Urine Creatinine 01/20/20 01/20/20 01/20/20 14:55 18:14 21:35 WBC RBC Hgb Hct MCHC RDW MCV MCH Lymph % (Auto) [place] % (Auto) [place] # Eos # Lymph # (Auto) [place] # (Auto) Eos # (Auto) Seg Neutrophils % Seg Neuts % (Manual) Baso # (Auto) Lymphocytes % (Manual) Monocytes % (Manual) Eosinophils % (Manual) Basophils % (Manual) Seg Neutrophils # Seg Neutrophils # Man Lymphocytes # (Manual) Monocytes # (Manual) Eosinophils # (Manual) Nucleated RBC % Basophils # (Manual) PT 20.4 H INR 1.72 H APTT 40.6 H Heparin Anti-Xa Level > 2.00 H ABG pH POC ABG pO2 ABG pO2 ABG HCO3 ABG O2 Saturation ABG Base Excess POC ABG pCO2 ABG Hemoglobin ABG Oxyhemoglobin ABG Glucose Oxyhemoglobin Sodium Potassium Chloride Carbon Dioxide BUN Creatinine Glucose POC Glucose 150 H Lactic Acid Calcium Phosphorus Magnesium AST ALT Lactate Dehydrogenase Total Bilirubin Direct Bilirubin CK-MB (CK-2) C-Reactive Protein NT-Pro-B Natriuret Pep Total Protein Albumin Arterial Blood Glucose Urine WBC (Auto) Urine Creatinine 01/21/20 01/21/20 01/21/20 00:30 05:47 05:59 WBC RBC Hgb Hct MCHC RDW MCV MCH Lymph % (Auto) [place] % (Auto) [place] # Eos # Lymph # (Auto) [place] # (Auto) Eos # (Auto) Seg Neutrophils % Seg Neuts % (Manual) Baso # (Auto) Lymphocytes % (Manual) Monocytes % (Manual) Eosinophils % (Manual) Basophils % (Manual) Seg Neutrophils # Seg Neutrophils # Man Lymphocytes # (Manual) Monocytes # (Manual) Eosinophils # (Manual) Nucleated RBC % Basophils # (Manual) PT INR APTT Heparin Anti-Xa Level 1.93 H ABG pH POC ABG pO2 ABG pO2 ABG HCO3 ABG O2 Saturation ABG Base Excess POC ABG pCO2 ABG Hemoglobin ABG Oxyhemoglobin ABG Glucose Oxyhemoglobin Sodium Potassium Chloride Carbon Dioxide BUN Creatinine Glucose POC Glucose 126 H 148 H Lactic Acid Calcium Phosphorus Magnesium AST ALT Lactate Dehydrogenase Total Bilirubin Direct Bilirubin CK-MB (CK-2) C-Reactive Protein NT-Pro-B Natriuret Pep Total Protein Albumin Arterial Blood Glucose Urine WBC (Auto) Urine Creatinine 01/21/20 01/21/20 01/21/20 12:32 18:20 23:54 WBC RBC Hgb Hct MCHC RDW MCV MCH Lymph % (Auto) [place] % (Auto) [place] # Eos # Lymph # (Auto) [place] # (Auto) Eos # (Auto) Seg Neutrophils % Seg Neuts % (Manual) Baso # (Auto) Lymphocytes % (Manual) Monocytes % (Manual) Eosinophils % (Manual) Basophils % (Manual) Seg Neutrophils # Seg Neutrophils # Man Lymphocytes # (Manual) Monocytes # (Manual) Eosinophils # (Manual) Nucleated RBC % Basophils # (Manual) PT INR APTT Heparin Anti-Xa Level 1.28 H ABG pH POC ABG pO2 ABG pO2 ABG HCO3 ABG O2 Saturation ABG Base Excess POC ABG pCO2 ABG Hemoglobin ABG Oxyhemoglobin ABG Glucose Oxyhemoglobin Sodium Potassium Chloride Carbon Dioxide BUN Creatinine Glucose POC Glucose 112 H 146 H Lactic Acid Calcium Phosphorus Magnesium AST ALT Lactate Dehydrogenase Total Bilirubin Direct Bilirubin CK-MB (CK-2) C-Reactive Protein NT-Pro-B Natriuret Pep Total Protein Albumin Arterial Blood Glucose Urine WBC (Auto) Urine Creatinine 01/22/20 01/22/20 01/22/20 04:45 04:45 05:48 WBC RBC Hgb 9.3 L Hct 29.0 L MCHC RDW MCV MCH Lymph % (Auto) [place] % (Auto) [place] # Eos # Lymph # (Auto) [place] # (Auto) Eos # (Auto) Seg Neutrophils % Seg Neuts % (Manual) Baso # (Auto) Lymphocytes % (Manual) Monocytes % (Manual) Eosinophils % (Manual) Basophils % (Manual) Seg Neutrophils # Seg Neutrophils # Man Lymphocytes # (Manual) Monocytes # (Manual) Eosinophils # (Manual) Nucleated RBC % Basophils # (Manual) PT INR APTT Heparin Anti-Xa Level 1.34 H ABG pH POC ABG pO2 ABG pO2 ABG HCO3 ABG O2 Saturation ABG Base Excess POC ABG pCO2 ABG Hemoglobin ABG Oxyhemoglobin ABG Glucose Oxyhemoglobin Sodium Potassium Chloride Carbon Dioxide BUN Creatinine Glucose POC Glucose 142 H Lactic Acid Calcium Phosphorus Magnesium AST ALT Lactate Dehydrogenase Total Bilirubin Direct Bilirubin CK-MB (CK-2) C-Reactive Protein NT-Pro-B Natriuret Pep Total Protein Albumin Arterial Blood Glucose Urine WBC (Auto) Urine Creatinine 01/22/20 01/22/20 01/22/20 08:09 08:22 09:58 WBC RBC Hgb Hct MCHC RDW MCV MCH Lymph % (Auto) [place] % (Auto) [place] # Eos # Lymph # (Auto) [place] # (Auto) Eos # (Auto) Seg Neutrophils % Seg Neuts % (Manual) Baso # (Auto) Lymphocytes % (Manual) Monocytes % (Manual) Eosinophils % (Manual) Basophils % (Manual) Seg Neutrophils # Seg Neutrophils # Man Lymphocytes # (Manual) Monocytes # (Manual) Eosinophils # (Manual) Nucleated RBC % Basophils # (Manual) PT 16.9 H INR 1.34 H APTT Heparin Anti-Xa Level ABG pH POC ABG pO2 ABG pO2 ABG HCO3 ABG O2 Saturation ABG Base Excess POC ABG pCO2 ABG Hemoglobin ABG Oxyhemoglobin ABG Glucose Oxyhemoglobin Sodium Potassium Chloride 97.8 L Carbon Dioxide BUN 29 H Creatinine Glucose 128 H POC Glucose 131 H Lactic Acid Calcium Phosphorus Magnesium AST ALT Lactate Dehydrogenase Total Bilirubin Direct Bilirubin CK-MB (CK-2) C-Reactive Protein NT-Pro-B Natriuret Pep Total Protein Albumin Arterial Blood Glucose Urine WBC (Auto) Urine Creatinine 01/22/20 01/22/20 01/22/20 12:44 16:13 18:18 WBC RBC Hgb Hct MCHC RDW MCV MCH Lymph % (Auto) [place] % (Auto) [place] # Eos # Lymph # (Auto) [place] # (Auto) Eos # (Auto) Seg Neutrophils % Seg Neuts % (Manual) Baso # (Auto) Lymphocytes % (Manual) Monocytes % (Manual) Eosinophils % (Manual) Basophils % (Manual) Seg Neutrophils # Seg Neutrophils # Man Lymphocytes # (Manual) Monocytes # (Manual) Eosinophils # (Manual) Nucleated RBC % Basophils # (Manual) PT INR APTT Heparin Anti-Xa Level ABG pH POC ABG pO2 ABG pO2 ABG HCO3 ABG O2 Saturation ABG Base Excess POC ABG pCO2 ABG Hemoglobin ABG Oxyhemoglobin ABG Glucose Oxyhemoglobin Sodium Potassium Chloride Carbon Dioxide BUN Creatinine Glucose POC Glucose 156 H 133 H 155 H Lactic Acid Calcium Phosphorus Magnesium AST ALT Lactate Dehydrogenase Total Bilirubin Direct Bilirubin CK-MB (CK-2) C-Reactive Protein NT-Pro-B Natriuret Pep Total Protein Albumin Arterial Blood Glucose Urine WBC (Auto) Urine Creatinine 01/22/20 01/23/20 01/23/20 23:22 05:37 12:59 WBC RBC Hgb Hct MCHC RDW MCV MCH Lymph % (Auto) [place] % (Auto) [place] # Eos # Lymph # (Auto) [place] # (Auto) Eos # (Auto) Seg Neutrophils % Seg Neuts % (Manual) Baso # (Auto) Lymphocytes % (Manual) Monocytes % (Manual) Eosinophils % (Manual) Basophils % (Manual) Seg Neutrophils # Seg Neutrophils # Man Lymphocytes # (Manual) Monocytes # (Manual) Eosinophils # (Manual) Nucleated RBC % Basophils # (Manual) PT INR APTT Heparin Anti-Xa Level ABG pH POC ABG pO2 ABG pO2 ABG HCO3 ABG O2 Saturation ABG Base Excess POC ABG pCO2 ABG Hemoglobin ABG Oxyhemoglobin ABG Glucose Oxyhemoglobin Sodium Potassium Chloride Carbon Dioxide BUN Creatinine Glucose POC Glucose 148 H 163 H 175 H Lactic Acid Calcium Phosphorus Magnesium AST ALT Lactate Dehydrogenase Total Bilirubin Direct Bilirubin CK-MB (CK-2) C-Reactive Protein NT-Pro-B Natriuret Pep Total Protein Albumin Arterial Blood Glucose Urine WBC (Auto) Urine Creatinine 01/23/20 01/23/20 01/24/20 17:28 23:56 04:30 WBC RBC 3.46 L Hgb 8.8 L Hct 27.8 L MCHC RDW 18.2 H MCV 81 L MCH 25 L Lymph % (Auto) [place] % (Auto) 7.8 H [place] # Eos # Lymph # (Auto) [place] # (Auto) Eos # (Auto) Seg Neutrophils % Seg Neuts % (Manual) Baso # (Auto) Lymphocytes % (Manual) Monocytes % (Manual) Eosinophils % (Manual) Basophils % (Manual) Seg Neutrophils # Seg Neutrophils # Man Lymphocytes # (Manual) Monocytes # (Manual) Eosinophils # (Manual) Nucleated RBC % Basophils # (Manual) PT INR APTT Heparin Anti-Xa Level ABG pH POC ABG pO2 ABG pO2 ABG HCO3 ABG O2 Saturation ABG Base Excess POC ABG pCO2 ABG Hemoglobin ABG Oxyhemoglobin ABG Glucose Oxyhemoglobin Sodium Potassium Chloride Carbon Dioxide BUN Creatinine Glucose POC Glucose 165 H 177 H Lactic Acid Calcium Phosphorus Magnesium AST ALT Lactate Dehydrogenase Total Bilirubin Direct Bilirubin CK-MB (CK-2) C-Reactive Protein NT-Pro-B Natriuret Pep Total Protein Albumin Arterial Blood Glucose Urine WBC (Auto) Urine Creatinine 01/24/20 01/24/20 01/24/20 04:30 07:18 12:06 WBC RBC Hgb Hct MCHC RDW MCV MCH Lymph % (Auto) [place] % (Auto) [place] # Eos # Lymph # (Auto) [place] # (Auto) Eos # (Auto) Seg Neutrophils % Seg Neuts % (Manual) Baso # (Auto) Lymphocytes % (Manual) Monocytes % (Manual) Eosinophils % (Manual) Basophils % (Manual) Seg Neutrophils # Seg Neutrophils # Man Lymphocytes # (Manual) Monocytes # (Manual) Eosinophils # (Manual) Nucleated RBC % Basophils # (Manual) PT INR APTT Heparin Anti-Xa Level ABG pH POC ABG pO2 ABG pO2 ABG HCO3 ABG O2 Saturation ABG Base Excess POC ABG pCO2 ABG Hemoglobin ABG Oxyhemoglobin ABG Glucose Oxyhemoglobin Sodium Potassium Chloride 97.9 L Carbon Dioxide BUN 31 H Creatinine Glucose 146 H POC Glucose 151 H 133 H Lactic Acid Calcium Phosphorus Magnesium AST ALT Lactate Dehydrogenase Total Bilirubin Direct Bilirubin CK-MB (CK-2) C-Reactive Protein NT-Pro-B Natriuret Pep Total Protein Albumin Arterial Blood Glucose Urine WBC (Auto) Urine Creatinine 01/24/20 01/25/20 01/25/20 17:36 00:08 04:25 WBC RBC 3.50 L Hgb 8.7 L Hct 27.9 L MCHC 31 L RDW 18.2 H MCV 80 L MCH 25 L Lymph % (Auto) [place] % (Auto) 8.5 H [place] # Eos # Lymph # (Auto) [place] # (Auto) Eos # (Auto) Seg Neutrophils % Seg Neuts % (Manual) Baso # (Auto) Lymphocytes % (Manual) Monocytes % (Manual) Eosinophils % (Manual) Basophils % (Manual) Seg Neutrophils # Seg Neutrophils # Man Lymphocytes # (Manual) Monocytes # (Manual) Eosinophils # (Manual) Nucleated RBC % Basophils # (Manual) PT INR APTT Heparin Anti-Xa Level ABG pH POC ABG pO2 ABG pO2 ABG HCO3 ABG O2 Saturation ABG Base Excess POC ABG pCO2 ABG Hemoglobin ABG Oxyhemoglobin ABG Glucose Oxyhemoglobin Sodium Potassium Chloride Carbon Dioxide BUN Creatinine Glucose POC Glucose 133 H 129 H Lactic Acid Calcium Phosphorus Magnesium AST ALT Lactate Dehydrogenase Total Bilirubin Direct Bilirubin CK-MB (CK-2) C-Reactive Protein NT-Pro-B Natriuret Pep Total Protein Albumin Arterial Blood Glucose Urine WBC (Auto) Urine Creatinine 01/25/20 01/25/20 01/25/20 04:25 05:38 11:52 WBC RBC Hgb Hct MCHC RDW MCV MCH Lymph % (Auto) [place] % (Auto) [place] # Eos # Lymph # (Auto) [place] # (Auto) Eos # (Auto) Seg Neutrophils % Seg Neuts % (Manual) Baso # (Auto) Lymphocytes % (Manual) Monocytes % (Manual) Eosinophils % (Manual) Basophils % (Manual) Seg Neutrophils # Seg Neutrophils # Man Lymphocytes # (Manual) Monocytes # (Manual) Eosinophils # (Manual) Nucleated RBC % Basophils # (Manual) PT INR APTT Heparin Anti-Xa Level ABG pH POC ABG pO2 ABG pO2 ABG HCO3 ABG O2 Saturation ABG Base Excess POC ABG pCO2 ABG Hemoglobin ABG Oxyhemoglobin ABG Glucose Oxyhemoglobin Sodium Potassium Chloride Carbon Dioxide BUN 30 H Creatinine Glucose 134 H POC Glucose 129 H 134 H Lactic Acid Calcium Phosphorus Magnesium AST ALT Lactate Dehydrogenase Total Bilirubin Direct Bilirubin CK-MB (CK-2) C-Reactive Protein NT-Pro-B Natriuret Pep Total Protein Albumin Arterial Blood Glucose Urine WBC (Auto) Urine Creatinine 01/25/20 01/25/20 01/26/20 17:13 21:02 00:59 WBC RBC Hgb Hct MCHC RDW MCV MCH Lymph % (Auto) [place] % (Auto) [place] # Eos # Lymph # (Auto) [place] # (Auto) Eos # (Auto) Seg Neutrophils % Seg Neuts % (Manual) Baso # (Auto) Lymphocytes % (Manual) Monocytes % (Manual) Eosinophils % (Manual) Basophils % (Manual) Seg Neutrophils # Seg Neutrophils # Man Lymphocytes # (Manual) Monocytes # (Manual) Eosinophils # (Manual) Nucleated RBC % Basophils # (Manual) PT INR APTT Heparin Anti-Xa Level ABG pH POC ABG pO2 ABG pO2 57.5 L ABG HCO3 31.7 H ABG O2 Saturation 90.3 L ABG Base Excess 6.6 H POC ABG pCO2 ABG Hemoglobin 13.0 L ABG Oxyhemoglobin ABG Glucose Oxyhemoglobin 87.5 L Sodium Potassium Chloride Carbon Dioxide BUN Creatinine Glucose POC Glucose 124 H 196 H Lactic Acid Calcium Phosphorus Magnesium AST ALT Lactate Dehydrogenase Total Bilirubin Direct Bilirubin CK-MB (CK-2) C-Reactive Protein NT-Pro-B Natriuret Pep Total Protein Albumin Arterial Blood Glucose Urine WBC (Auto) Urine Creatinine 01/26/20 01/26/20 01/26/20 03:20 05:46 12:46 WBC RBC Hgb 9.2 L Hct 29.4 L MCHC RDW MCV MCH Lymph % (Auto) [place] % (Auto) [place] # Eos # Lymph # (Auto) [place] # (Auto) Eos # (Auto) Seg Neutrophils % Seg Neuts % (Manual) Baso # (Auto) Lymphocytes % (Manual) Monocytes % (Manual) Eosinophils % (Manual) Basophils % (Manual) Seg Neutrophils # Seg Neutrophils # Man Lymphocytes # (Manual) Monocytes # (Manual) Eosinophils # (Manual) Nucleated RBC % Basophils # (Manual) PT INR APTT Heparin Anti-Xa Level ABG pH POC ABG pO2 ABG pO2 ABG HCO3 ABG O2 Saturation ABG Base Excess POC ABG pCO2 ABG Hemoglobin ABG Oxyhemoglobin ABG Glucose Oxyhemoglobin Sodium Potassium Chloride Carbon Dioxide BUN Creatinine Glucose POC Glucose 141 H 122 H Lactic Acid Calcium Phosphorus Magnesium AST ALT Lactate Dehydrogenase Total Bilirubin Direct Bilirubin CK-MB (CK-2) C-Reactive Protein NT-Pro-B Natriuret Pep Total Protein Albumin Arterial Blood Glucose Urine WBC (Auto) Urine Creatinine 01/26/20 01/26/20 01/27/20 18:03 23:55 04:47 WBC RBC Hgb Hct MCHC RDW MCV MCH Lymph % (Auto) [place] % (Auto) [place] # Eos # Lymph # (Auto) [place] # (Auto) Eos # (Auto) Seg Neutrophils % Seg Neuts % (Manual) Baso # (Auto) Lymphocytes % (Manual) Monocytes % (Manual) Eosinophils % (Manual) Basophils % (Manual) Seg Neutrophils # Seg Neutrophils # Man Lymphocytes # (Manual) Monocytes # (Manual) Eosinophils # (Manual) Nucleated RBC % Basophils # (Manual) PT INR APTT Heparin Anti-Xa Level ABG pH POC ABG pO2 ABG pO2 ABG HCO3 ABG O2 Saturation ABG Base Excess POC ABG pCO2 ABG Hemoglobin ABG Oxyhemoglobin ABG Glucose Oxyhemoglobin Sodium Potassium Chloride Carbon Dioxide BUN 30 H Creatinine 0.7 L Glucose 135 H POC Glucose 142 H 159 H Lactic Acid Calcium Phosphorus Magnesium AST ALT Lactate Dehydrogenase Total Bilirubin Direct Bilirubin CK-MB (CK-2) C-Reactive Protein NT-Pro-B Natriuret Pep Total Protein Albumin Arterial Blood Glucose Urine WBC (Auto) Urine Creatinine 01/27/20 01/27/20 01/27/20 05:43 12:06 17:16 WBC RBC Hgb Hct MCHC RDW MCV MCH Lymph % (Auto) [place] % (Auto) [place] # Eos # Lymph # (Auto) [place] # (Auto) Eos # (Auto) Seg Neutrophils % Seg Neuts % (Manual) Baso # (Auto) Lymphocytes % (Manual) Monocytes % (Manual) Eosinophils % (Manual) Basophils % (Manual) Seg Neutrophils # Seg Neutrophils # Man Lymphocytes # (Manual) Monocytes # (Manual) Eosinophils # (Manual) Nucleated RBC % Basophils # (Manual) PT INR APTT Heparin Anti-Xa Level ABG pH POC ABG pO2 ABG pO2 ABG HCO3 ABG O2 Saturation ABG Base Excess POC ABG pCO2 ABG Hemoglobin ABG Oxyhemoglobin ABG Glucose Oxyhemoglobin Sodium Potassium Chloride Carbon Dioxide BUN Creatinine Glucose POC Glucose 143 H 142 H 128 H Lactic Acid Calcium Phosphorus Magnesium AST ALT Lactate Dehydrogenase Total Bilirubin Direct Bilirubin CK-MB (CK-2) C-Reactive Protein NT-Pro-B Natriuret Pep Total Protein Albumin Arterial Blood Glucose Urine WBC (Auto) Urine Creatinine 01/27/20 01/28/20 01/28/20 23:55 04:37 05:55 WBC RBC Hgb 9.4 L Hct 29.9 L MCHC RDW MCV MCH Lymph % (Auto) [place] % (Auto) [place] # Eos # Lymph # (Auto) [place] # (Auto) Eos # (Auto) Seg Neutrophils % Seg Neuts % (Manual) Baso # (Auto) Lymphocytes % (Manual) Monocytes % (Manual) Eosinophils % (Manual) Basophils % (Manual) Seg Neutrophils # Seg Neutrophils # Man Lymphocytes # (Manual) Monocytes # (Manual) Eosinophils # (Manual) Nucleated RBC % Basophils # (Manual) PT INR APTT Heparin Anti-Xa Level ABG pH POC ABG pO2 ABG pO2 ABG HCO3 ABG O2 Saturation ABG Base Excess POC ABG pCO2 ABG Hemoglobin ABG Oxyhemoglobin ABG Glucose Oxyhemoglobin Sodium Potassium Chloride Carbon Dioxide BUN Creatinine Glucose POC Glucose 166 H 169 H Lactic Acid Calcium Phosphorus Magnesium AST ALT Lactate Dehydrogenase Total Bilirubin Direct Bilirubin CK-MB (CK-2) C-Reactive Protein NT-Pro-B Natriuret Pep Total Protein Albumin Arterial Blood Glucose Urine WBC (Auto) Urine Creatinine 01/28/20 01/28/20 01/28/20 11:58 17:26 23:46 WBC RBC Hgb Hct MCHC RDW MCV MCH Lymph % (Auto) [place] % (Auto) [place] # Eos # Lymph # (Auto) [place] # (Auto) Eos # (Auto) Seg Neutrophils % Seg Neuts % (Manual) Baso # (Auto) Lymphocytes % (Manual) Monocytes % (Manual) Eosinophils % (Manual) Basophils % (Manual) Seg Neutrophils # Seg Neutrophils # Man Lymphocytes # (Manual) Monocytes # (Manual) Eosinophils # (Manual) Nucleated RBC % Basophils # (Manual) PT INR APTT Heparin Anti-Xa Level ABG pH POC ABG pO2 ABG pO2 ABG HCO3 ABG O2 Saturation ABG Base Excess POC ABG pCO2 ABG Hemoglobin ABG Oxyhemoglobin ABG Glucose Oxyhemoglobin Sodium Potassium Chloride Carbon Dioxide BUN Creatinine Glucose POC Glucose 130 H 126 H 150 H Lactic Acid Calcium Phosphorus Magnesium AST ALT Lactate Dehydrogenase Total Bilirubin Direct Bilirubin CK-MB (CK-2) C-Reactive Protein NT-Pro-B Natriuret Pep Total Protein Albumin Arterial Blood Glucose Urine WBC (Auto) Urine Creatinine 01/29/20 01/29/20 01/29/20 04:55 06:00 12:28 WBC RBC Hgb Hct MCHC RDW MCV MCH Lymph % (Auto) [place] % (Auto) [place] # Eos # Lymph # (Auto) [place] # (Auto) Eos # (Auto) Seg Neutrophils % Seg Neuts % (Manual) Baso # (Auto) Lymphocytes % (Manual) Monocytes % (Manual) Eosinophils % (Manual) Basophils % (Manual) Seg Neutrophils # Seg Neutrophils # Man Lymphocytes # (Manual) Monocytes # (Manual) Eosinophils # (Manual) Nucleated RBC % Basophils # (Manual) PT INR APTT Heparin Anti-Xa Level ABG pH POC ABG pO2 ABG pO2 ABG HCO3 ABG O2 Saturation ABG Base Excess POC ABG pCO2 ABG Hemoglobin ABG Oxyhemoglobin ABG Glucose Oxyhemoglobin Sodium Potassium Chloride Carbon Dioxide 34 H BUN Creatinine 0.6 L Glucose 152 H POC Glucose 157 H 156 H Lactic Acid Calcium Phosphorus Magnesium AST ALT Lactate Dehydrogenase Total Bilirubin Direct Bilirubin CK-MB (CK-2) C-Reactive Protein NT-Pro-B Natriuret Pep Total Protein Albumin Arterial Blood Glucose Urine WBC (Auto) Urine Creatinine 01/29/20 01/30/20 01/30/20 19:06 00:29 05:39 WBC RBC Hgb Hct MCHC RDW MCV MCH Lymph % (Auto) [place] % (Auto) [place] # Eos # Lymph # (Auto) [place] # (Auto) Eos # (Auto) Seg Neutrophils % Seg Neuts % (Manual) Baso # (Auto) Lymphocytes % (Manual) Monocytes % (Manual) Eosinophils % (Manual) Basophils % (Manual) Seg Neutrophils # Seg Neutrophils # Man Lymphocytes # (Manual) Monocytes # (Manual) Eosinophils # (Manual) Nucleated RBC % Basophils # (Manual) PT INR APTT Heparin Anti-Xa Level ABG pH POC ABG pO2 ABG pO2 ABG HCO3 ABG O2 Saturation ABG Base Excess POC ABG pCO2 ABG Hemoglobin ABG Oxyhemoglobin ABG Glucose Oxyhemoglobin Sodium Potassium Chloride Carbon Dioxide BUN Creatinine Glucose POC Glucose 152 H 132 H 159 H Lactic Acid Calcium Phosphorus Magnesium AST ALT Lactate Dehydrogenase Total Bilirubin Direct Bilirubin CK-MB (CK-2) C-Reactive Protein NT-Pro-B Natriuret Pep Total Protein Albumin Arterial Blood Glucose Urine WBC (Auto) Urine Creatinine 01/30/20 01/30/20 01/30/20 12:27 17:42 23:28 WBC RBC Hgb Hct MCHC RDW MCV MCH Lymph % (Auto) [place] % (Auto) [place] # Eos # Lymph # (Auto) [place] # (Auto) Eos # (Auto) Seg Neutrophils % Seg Neuts % (Manual) Baso # (Auto) Lymphocytes % (Manual) Monocytes % (Manual) Eosinophils % (Manual) Basophils % (Manual) Seg Neutrophils # Seg Neutrophils # Man Lymphocytes # (Manual) Monocytes # (Manual) Eosinophils # (Manual) Nucleated RBC % Basophils # (Manual) PT INR APTT Heparin Anti-Xa Level ABG pH POC ABG pO2 ABG pO2 ABG HCO3 ABG O2 Saturation ABG Base Excess POC ABG pCO2 ABG Hemoglobin ABG Oxyhemoglobin ABG Glucose Oxyhemoglobin Sodium Potassium Chloride Carbon Dioxide BUN Creatinine Glucose POC Glucose 151 H 144 H 164 H Lactic Acid Calcium Phosphorus Magnesium AST ALT Lactate Dehydrogenase Total Bilirubin Direct Bilirubin CK-MB (CK-2) C-Reactive Protein NT-Pro-B Natriuret Pep Total Protein Albumin Arterial Blood Glucose Urine WBC (Auto) Urine Creatinine 01/31/20 01/31/20 01/31/20 05:51 11:51 18:06 WBC RBC Hgb Hct MCHC RDW MCV MCH Lymph % (Auto) [place] % (Auto) [place] # Eos # Lymph # (Auto) [place] # (Auto) Eos # (Auto) Seg Neutrophils % Seg Neuts % (Manual) Baso # (Auto) Lymphocytes % (Manual) Monocytes % (Manual) Eosinophils % (Manual) Basophils % (Manual) Seg Neutrophils # Seg Neutrophils # Man Lymphocytes # (Manual) Monocytes # (Manual) Eosinophils # (Manual) Nucleated RBC % Basophils # (Manual) PT INR APTT Heparin Anti-Xa Level ABG pH POC ABG pO2 ABG pO2 ABG HCO3 ABG O2 Saturation ABG Base Excess POC ABG pCO2 ABG Hemoglobin ABG Oxyhemoglobin ABG Glucose Oxyhemoglobin Sodium Potassium Chloride Carbon Dioxide BUN Creatinine Glucose POC Glucose 131 H 167 H 210 H Lactic Acid Calcium Phosphorus Magnesium AST ALT Lactate Dehydrogenase Total Bilirubin Direct Bilirubin CK-MB (CK-2) C-Reactive Protein NT-Pro-B Natriuret Pep Total Protein Albumin Arterial Blood Glucose Urine WBC (Auto) Urine Creatinine 01/31/20 01/31/20 02/01/20 19:24 Unknown 00:34 WBC RBC Hgb Hct MCHC RDW MCV MCH Lymph % (Auto) [place] % (Auto) [place] # Eos # Lymph # (Auto) [place] # (Auto) Eos # (Auto) Seg Neutrophils % Seg Neuts % (Manual) Baso # (Auto) Lymphocytes % (Manual) Monocytes % (Manual) Eosinophils % (Manual) Basophils % (Manual) Seg Neutrophils # Seg Neutrophils # Man Lymphocytes # (Manual) Monocytes # (Manual) Eosinophils # (Manual) Nucleated RBC % Basophils # (Manual) PT INR APTT Heparin Anti-Xa Level ABG pH POC ABG pO2 ABG pO2 ABG HCO3 ABG O2 Saturation ABG Base Excess POC ABG pCO2 ABG Hemoglobin ABG Oxyhemoglobin ABG Glucose Oxyhemoglobin Sodium Potassium Chloride 95.3 L Carbon Dioxide 33 H BUN 36 H Creatinine Glucose 187 H POC Glucose 116 H Lactic Acid Calcium Phosphorus Magnesium AST ALT Lactate Dehydrogenase Total Bilirubin Direct Bilirubin CK-MB (CK-2) C-Reactive Protein NT-Pro-B Natriuret Pep Total Protein Albumin Arterial Blood Glucose Urine WBC (Auto) Urine Creatinine 57.4 H 02/01/20 02/01/20 02/01/20 05:24 10:40 12:29 WBC RBC Hgb Hct MCHC RDW MCV MCH Lymph % (Auto) [place] % (Auto) [place] # Eos # Lymph # (Auto) [place] # (Auto) Eos # (Auto) Seg Neutrophils % Seg Neuts % (Manual) Baso # (Auto) Lymphocytes % (Manual) Monocytes % (Manual) Eosinophils % (Manual) Basophils % (Manual) Seg Neutrophils # Seg Neutrophils # Man Lymphocytes # (Manual) Monocytes # (Manual) Eosinophils # (Manual) Nucleated RBC % Basophils # (Manual) PT INR APTT Heparin Anti-Xa Level ABG pH POC ABG pO2 ABG pO2 ABG HCO3 ABG O2 Saturation ABG Base Excess POC ABG pCO2 ABG Hemoglobin ABG Oxyhemoglobin ABG Glucose Oxyhemoglobin Sodium Potassium Chloride Carbon Dioxide BUN Creatinine Glucose POC Glucose 142 H 165 H 151 H Lactic Acid Calcium Phosphorus Magnesium AST ALT Lactate Dehydrogenase Total Bilirubin Direct Bilirubin CK-MB (CK-2) C-Reactive Protein NT-Pro-B Natriuret Pep Total Protein Albumin Arterial Blood Glucose Urine WBC (Auto) Urine Creatinine 02/01/20 02/01/20 02/02/20 17:16 23:23 06:36 WBC RBC Hgb Hct MCHC RDW MCV MCH Lymph % (Auto) [place] % (Auto) [place] # Eos # Lymph # (Auto) [place] # (Auto) Eos # (Auto) Seg Neutrophils % Seg Neuts % (Manual) Baso # (Auto) Lymphocytes % (Manual) Monocytes % (Manual) Eosinophils % (Manual) Basophils % (Manual) Seg Neutrophils # Seg Neutrophils # Man Lymphocytes # (Manual) Monocytes # (Manual) Eosinophils # (Manual) Nucleated RBC % Basophils # (Manual) PT INR APTT Heparin Anti-Xa Level ABG pH POC ABG pO2 ABG pO2 ABG HCO3 ABG O2 Saturation ABG Base Excess POC ABG pCO2 ABG Hemoglobin ABG Oxyhemoglobin ABG Glucose Oxyhemoglobin Sodium Potassium Chloride Carbon Dioxide BUN Creatinine Glucose POC Glucose 137 H 145 H 181 H Lactic Acid Calcium Phosphorus Magnesium AST ALT Lactate Dehydrogenase Total Bilirubin Direct Bilirubin CK-MB (CK-2) C-Reactive Protein NT-Pro-B Natriuret Pep Total Protein Albumin Arterial Blood Glucose Urine WBC (Auto) Urine Creatinine 02/02/20 02/02/20 02/02/20 10:01 12:05 17:54 WBC RBC Hgb Hct MCHC RDW MCV MCH Lymph % (Auto) [place] % (Auto) [place] # Eos # Lymph # (Auto) [place] # (Auto) Eos # (Auto) Seg Neutrophils % Seg Neuts % (Manual) Baso # (Auto) Lymphocytes % (Manual) Monocytes % (Manual) Eosinophils % (Manual) Basophils % (Manual) Seg Neutrophils # Seg Neutrophils # Man Lymphocytes # (Manual) Monocytes # (Manual) Eosinophils # (Manual) Nucleated RBC % Basophils # (Manual) PT INR APTT Heparin Anti-Xa Level ABG pH POC ABG pO2 ABG pO2 ABG HCO3 ABG O2 Saturation ABG Base Excess POC ABG pCO2 ABG Hemoglobin ABG Oxyhemoglobin ABG Glucose Oxyhemoglobin Sodium Potassium Chloride 95.3 L Carbon Dioxide BUN 44 H Creatinine Glucose 234 H POC Glucose 184 H 127 H Lactic Acid Calcium Phosphorus Magnesium AST 363 H ALT 457 H Lactate Dehydrogenase Total Bilirubin Direct Bilirubin CK-MB (CK-2) C-Reactive Protein NT-Pro-B Natriuret Pep Total Protein Albumin 3.0 L Arterial Blood Glucose Urine WBC (Auto) Urine Creatinine 02/02/20 02/03/20 02/03/20 23:47 05:32 07:04 WBC 13.0 H RBC Hgb 9.5 L Hct 30.8 L MCHC 31 L RDW 19.6 H MCV 81 L MCH 25 L Lymph % (Auto) [place] % (Auto) 9.4 H [place] # Eos # Lymph # (Auto) [place] # (Auto) 1.2 H Eos # (Auto) Seg Neutrophils % 72.3 H Seg Neuts % (Manual) Baso # (Auto) Lymphocytes % (Manual) Monocytes % (Manual) Eosinophils % (Manual) Basophils % (Manual) Seg Neutrophils # 9.4 H Seg Neutrophils # Man Lymphocytes # (Manual) Monocytes # (Manual) Eosinophils # (Manual) Nucleated RBC % Basophils # (Manual) PT INR APTT Heparin Anti-Xa Level ABG pH POC ABG pO2 ABG pO2 ABG HCO3 ABG O2 Saturation ABG Base Excess POC ABG pCO2 ABG Hemoglobin ABG Oxyhemoglobin ABG Glucose Oxyhemoglobin Sodium Potassium Chloride Carbon Dioxide BUN Creatinine Glucose POC Glucose 124 H 129 H Lactic Acid Calcium Phosphorus Magnesium AST ALT Lactate Dehydrogenase Total Bilirubin Direct Bilirubin CK-MB (CK-2) C-Reactive Protein NT-Pro-B Natriuret Pep Total Protein Albumin Arterial Blood Glucose Urine WBC (Auto) Urine Creatinine 02/03/20 02/03/20 02/03/20 07:04 11:32 12:49 WBC RBC Hgb Hct MCHC RDW MCV MCH Lymph % (Auto) [place] % (Auto) [place] # Eos # Lymph # (Auto) [place] # (Auto) Eos # (Auto) Seg Neutrophils % Seg Neuts % (Manual) Baso # (Auto) Lymphocytes % (Manual) Monocytes % (Manual) Eosinophils % (Manual) Basophils % (Manual) Seg Neutrophils # Seg Neutrophils # Man Lymphocytes # (Manual) Monocytes # (Manual) Eosinophils # (Manual) Nucleated RBC % Basophils # (Manual) PT INR APTT Heparin Anti-Xa Level ABG pH POC ABG pO2 ABG pO2 ABG HCO3 ABG O2 Saturation ABG Base Excess POC ABG pCO2 ABG Hemoglobin ABG Oxyhemoglobin ABG Glucose Oxyhemoglobin Sodium Potassium Chloride 97.9 L Carbon Dioxide 33 H BUN 39 H Creatinine Glucose 119 H POC Glucose 138 H Lactic Acid Calcium Phosphorus Magnesium 2.60 H AST ALT Lactate Dehydrogenase Total Bilirubin Direct Bilirubin CK-MB (CK-2) C-Reactive Protein NT-Pro-B Natriuret Pep Total Protein Albumin Arterial Blood Glucose Urine WBC (Auto) Urine Creatinine 02/03/20 02/04/20 02/04/20 18:28 16:24 16:24 WBC RBC 3.38 L Hgb 8.6 L Hct 26.9 L MCHC RDW 19.5 H MCV 80 L MCH 26 L Lymph % (Auto) [place] % (Auto) [place] # Eos # Lymph # (Auto) [place] # (Auto) Eos # (Auto) Seg Neutrophils % Seg Neuts % (Manual) Baso # (Auto) Lymphocytes % (Manual) Monocytes % (Manual) Eosinophils % (Manual) Basophils % (Manual) Seg Neutrophils # Seg Neutrophils # Man Lymphocytes # (Manual) Monocytes # (Manual) Eosinophils # (Manual) Nucleated RBC % Basophils # (Manual) PT INR APTT Heparin Anti-Xa Level ABG pH POC ABG pO2 ABG pO2 ABG HCO3 ABG O2 Saturation ABG Base Excess POC ABG pCO2 ABG Hemoglobin ABG Oxyhemoglobin ABG Glucose Oxyhemoglobin Sodium Potassium 3.4 L Chloride Carbon Dioxide 31 H BUN 37 H Creatinine Glucose 70 L POC Glucose 118 H Lactic Acid Calcium Phosphorus Magnesium AST 169 H ALT 394 H Lactate Dehydrogenase Total Bilirubin 1.50 H Direct Bilirubin CK-MB (CK-2) C-Reactive Protein NT-Pro-B Natriuret Pep Total Protein Albumin 2.9 L Arterial Blood Glucose Urine WBC (Auto) Urine Creatinine 02/05/20 02/05/20 02/05/20 00:41 06:37 17:14 WBC RBC Hgb Hct MCHC RDW MCV MCH Lymph % (Auto) [place] % (Auto) [place] # Eos # Lymph # (Auto) [place] # (Auto) Eos # (Auto) Seg Neutrophils % Seg Neuts % (Manual) Baso # (Auto) Lymphocytes % (Manual) Monocytes % (Manual) Eosinophils % (Manual) Basophils % (Manual) Seg Neutrophils # Seg Neutrophils # Man Lymphocytes # (Manual) Monocytes # (Manual) Eosinophils # (Manual) Nucleated RBC % Basophils # (Manual) PT INR APTT Heparin Anti-Xa Level ABG pH POC ABG pO2 ABG pO2 ABG HCO3 ABG O2 Saturation ABG Base Excess POC ABG pCO2 ABG Hemoglobin ABG Oxyhemoglobin ABG Glucose Oxyhemoglobin Sodium Potassium 3.1 L Chloride Carbon Dioxide 35 H BUN 32 H Creatinine 0.7 L Glucose POC Glucose 69 L 127 H Lactic Acid Calcium Phosphorus Magnesium AST 134 H ALT 352 H Lactate Dehydrogenase Total Bilirubin 1.60 H Direct Bilirubin CK-MB (CK-2) C-Reactive Protein NT-Pro-B Natriuret Pep Total Protein Albumin 2.9 L Arterial Blood Glucose Urine WBC (Auto) Urine Creatinine 02/05/20 02/06/20 02/06/20 23:43 05:32 08:01 WBC RBC Hgb Hct MCHC RDW MCV MCH Lymph % (Auto) [place] % (Auto) [place] # Eos # Lymph # (Auto) [place] # (Auto) Eos # (Auto) Seg Neutrophils % Seg Neuts % (Manual) Baso # (Auto) Lymphocytes % (Manual) Monocytes % (Manual) Eosinophils % (Manual) Basophils % (Manual) Seg Neutrophils # Seg Neutrophils # Man Lymphocytes # (Manual) Monocytes # (Manual) Eosinophils # (Manual) Nucleated RBC % Basophils # (Manual) PT INR APTT Heparin Anti-Xa Level ABG pH POC ABG pO2 ABG pO2 ABG HCO3 ABG O2 Saturation ABG Base Excess POC ABG pCO2 ABG Hemoglobin ABG Oxyhemoglobin ABG Glucose Oxyhemoglobin Sodium Potassium Chloride Carbon Dioxide BUN 40 H Creatinine Glucose 132 H POC Glucose 129 H 131 H Lactic Acid Calcium Phosphorus Magnesium AST ALT Lactate Dehydrogenase Total Bilirubin Direct Bilirubin CK-MB (CK-2) C-Reactive Protein NT-Pro-B Natriuret Pep Total Protein Albumin Arterial Blood Glucose Urine WBC (Auto) Urine Creatinine 02/06/20 02/06/20 02/06/20 11:51 16:28 17:32 WBC RBC Hgb Hct MCHC RDW MCV MCH Lymph % (Auto) [place] % (Auto) [place] # Eos # Lymph # (Auto) [place] # (Auto) Eos # (Auto) Seg Neutrophils % Seg Neuts % (Manual) Baso # (Auto) Lymphocytes % (Manual) Monocytes % (Manual) Eosinophils % (Manual) Basophils % (Manual) Seg Neutrophils # Seg Neutrophils # Man Lymphocytes # (Manual) Monocytes # (Manual) Eosinophils # (Manual) Nucleated RBC % Basophils # (Manual) PT INR APTT Heparin Anti-Xa Level ABG pH POC ABG pO2 ABG pO2 ABG HCO3 ABG O2 Saturation ABG Base Excess POC ABG pCO2 ABG Hemoglobin ABG Oxyhemoglobin ABG Glucose Oxyhemoglobin Sodium Potassium Chloride Carbon Dioxide BUN Creatinine Glucose POC Glucose 167 H 129 H Lactic Acid Calcium Phosphorus Magnesium AST 824 H ALT 948 H Lactate Dehydrogenase Total Bilirubin 1.70 H Direct Bilirubin 1.2 H CK-MB (CK-2) C-Reactive Protein NT-Pro-B Natriuret Pep Total Protein Albumin 2.9 L Arterial Blood Glucose Urine WBC (Auto) Urine Creatinine 02/07/20 02/07/20 02/07/20 00:11 04:57 04:57 WBC RBC Hgb 9.2 L Hct 29.7 L MCHC 31 L RDW 20.2 H MCV 80 L MCH 25 L Lymph % (Auto) [place] % (Auto) [place] # Eos # Lymph # (Auto) [place] # (Auto) Eos # (Auto) Seg Neutrophils % Seg Neuts % (Manual) Baso # (Auto) Lymphocytes % (Manual) Monocytes % (Manual) Eosinophils % (Manual) Basophils % (Manual) Seg Neutrophils # Seg Neutrophils # Man Lymphocytes # (Manual) Monocytes # (Manual) Eosinophils # (Manual) Nucleated RBC % Basophils # (Manual) PT INR APTT Heparin Anti-Xa Level ABG pH POC ABG pO2 ABG pO2 ABG HCO3 ABG O2 Saturation ABG Base Excess POC ABG pCO2 ABG Hemoglobin ABG Oxyhemoglobin ABG Glucose Oxyhemoglobin Sodium Potassium 3.4 L D Chloride Carbon Dioxide 32 H BUN 39 H Creatinine Glucose 106 H POC Glucose 121 H Lactic Acid Calcium Phosphorus Magnesium AST ALT Lactate Dehydrogenase Total Bilirubin Direct Bilirubin CK-MB (CK-2) C-Reactive Protein NT-Pro-B Natriuret Pep Total Protein Albumin Arterial Blood Glucose Urine WBC (Auto) Urine Creatinine 02/07/20 02/07/20 15:03 15:03 WBC RBC Hgb Hct MCHC RDW MCV MCH Lymph % (Auto) [place] % (Auto) [place] # Eos # Lymph # (Auto) [place] # (Auto) Eos # (Auto) Seg Neutrophils % Seg Neuts % (Manual) Baso # (Auto) Lymphocytes % (Manual) Monocytes % (Manual) Eosinophils % (Manual) Basophils % (Manual) Seg Neutrophils # Seg Neutrophils # Man Lymphocytes # (Manual) Monocytes # (Manual) Eosinophils # (Manual) Nucleated RBC % Basophils # (Manual) PT 27.0 H INR 2.46 H APTT Heparin Anti-Xa Level ABG pH POC ABG pO2 ABG pO2 ABG HCO3 ABG O2 Saturation ABG Base Excess POC ABG pCO2 ABG Hemoglobin ABG Oxyhemoglobin ABG Glucose Oxyhemoglobin Sodium Potassium Chloride Carbon Dioxide BUN Creatinine Glucose POC Glucose Lactic Acid Calcium Phosphorus Magnesium AST 424 H ALT 796 H Lactate Dehydrogenase Total Bilirubin 1.60 H Direct Bilirubin 1.2 H CK-MB (CK-2) C-Reactive Protein NT-Pro-B Natriuret Pep Total Protein Albumin 2.9 L Arterial Blood Glucose Urine WBC (Auto) Urine Creatinine Chest x-ray: other (none today) Allied health notes reviewed: nursing
[2020-02-07] MEDS: POLYETHYLENE GLYCOL 3350 17 GM POWDER PO SCH (22:00)
[2020-02-07] MEDS: TAMSULOSIN 0.4 MG CAP PO SCH (23:40)
[2020-02-08] MEDS: METOPROLOL TARTRATE 50 MG TAB PO SCH ×5 (06:03→17:52)
[2020-02-08] MEDS: METOCLOPRAMIDE 10 MG/2 ML INJ IV SCH ×3 (06:07→17:13)
[2020-02-08] MEDS: INSULIN REGULAR, HUMAN 100 UNIT/ML 3ML VIAL SUB-Q SCH ×5 (06:09→17:51)
[2020-02-08] MEDS: APIXABAN 5 MG TAB PO SCH ×2 (09:16→21:12)
[2020-02-08] MEDS: GLYCOPYRROLATE 2 MG TAB PO SCH ×3 (09:16→21:12)
[2020-02-08] MEDS: QUEtiapine 100 MG TAB PO SCH ×2 (09:16→21:13)
[2020-02-08] MEDS: CLOPIDOGREL 75 MG TAB PO SCH (09:16)
[2020-02-08] MEDS: LANSOPRAZOLE 30 MG SOLUTAB FEEDTUBE SCH (09:16)
[2020-02-08] MEDS: MIDODRINE 5 MG TAB PO SCH ×3 (09:16→16:42)
--- NOTE | 2020-02-08 12:03 | Progress Note ---
Assessment and Plan Assessment and plan: Patient is a 64-year-old male with known history of hypertension, COPD, history of coronary artery disease, CHF with ejection fraction of 20 to 25% in August 2018 presenting to the emergency room via EMS complaining of shortness of breath. Patient was found to be hypoxic and in respiratory distress. Patient was placed on CPAP in route to the hospital. Patient remained hypoxic on CPAP BiPAP ,subsequently was intubated. Work-up in the emergency room including chest x-ray reveals bilateral pneumonia. He had an elevated white count of 14 and also had an elevated BNP. sputum cultures positive for Pseudomonas, ID treated with cefepime and Vanco. His hospital course became complicated with acute PE, DVT, paroxysmal atrial fib - placed on chronic anticoagulation. Patient was difficult to wean off, status post trach and PEG, remains on mechanical ventilation with trach tube. He then developed partial small bowel obstruction valuated by general surgeon symptom improved with medical Mx, patient was briefly weaned off ventilatory support however, was in respiratory failure requiring full ventilatory support. Cardiac catheterization on 01/22/2020. No new issues overnight. -Ischemic cardiomyopathy Cardiology is following, status post cardiac catheterization on 01/22/2020; Coronary artery disease status post PCI and stent to the LAD Continue current cardiac medications --Acute on chronic hypoxemic respiratory failure; Patient has tracheostomy on vent Continue nebulizers, , trach care Wean off ventilator as tolerated Pulmonary critical following --Acute exacerbation of COPD; Patient is currently on ventilatory support Continue nebulizers --Left lower lobe PE; Continue Eliquis, ventilatory support --Acute right lower extremity DVT; Patient is on Eliquis --Bilateral multifocal pneumonia/community-acquired Completed antibiotics, improved --Severe sepsis/bilateral pneumonia: Completed antibiotics COVID-19 test; 11/24/2019; negative 11/26/2019; negative 12/29/2019: Negative --atrial fibrillation WITH RVR Now rate controlled, Stable on amiodarone and Eliquis --Acute on chronic combined systolic and diastolic congestive heart failure Ischemic cardiomyopathy left ventricular ejection fraction 40 to 45% --H/o CAD [[facility] 12/2018 in-stent restenosis] --Hypertensive emergency; present on admission Reasonable blood pressures, continue current antihypertensives As needed medications Most stents were patent. --Hypokalemia --History of alcohol abuse/alcohol withdrawal; Was on CIWA protocol, now stable --Oropharyngeal dysphagia; status post PEG placement Continue PEG feeds per protocol --History of partial small bowel obstruction; resolved Surgery evaluated. At present not a surgical candidate. --Obesity; BMI 34.7 Patient needs weight reduction when medically stable --Severe protein calorie malnutrition/hypoalbuminemia Nutrition supplements, dietitian following, PEG feeds --DVT prophylaxis;Eliquis --Full CODE STATUS 01/05; Pt stable. NGT output 650cc over 24 hours, bilious. No f/c, WBC within normal limits. cont NG suction and cont to hold TF 01/06: Abs series - mild improvement in small bowel distension in mid abdomen, normal gas/stool pattern in colon. NGT in duodenum. Continue to hold tube feeding, maintain NG tube with low intermittent suction. Patient's was updated by phone. Continue to provide supportive care and monitor clinically. 01/07: +BMs today and NGT/PEG output appears more gastric today. Plan to clamp NGT, if tolerates start TF from tomorrow. cont supportive care. 01/08; Gastric output decreased over last 24 hours. NGT has been clamped x 24 hours. plan to dc NGT and to start TTF via PEG - vital HF @10cc/hr 01/09: clinically stable, tolerating TF. monitor BMP, wean off from vent as tolerated clinically stable, on TF. wean off vent as tolerated 01/11: wean off from vent, cont to monitor, on TF 01/12: wean off from vent, cont to monitor, on TF. need placement - unfunded 01/13; remains on ventilatory support, unable to wean, DC planning possible LTAC, unfunded 01/14; patient of ventilatory support, T-piece tracheostomy on oxygen, LTAC placement per case management 01/16; tracheostomy, patient on full ventilatory support, wean off vent support as tolerated, pending LTAC placement, social financial issues 01/17; awaiting LTAC placement, insurance and financial issues 01/18; patient tracheostomy remains on ventilatory support 01/19; wean off ventilator as tolerated 01/20; remains on ventilatory support, patient complains of intermittent chest pain, cardiology recommend left heart catheterization tomorrow 01/22/2020. Patient for left heart catheterization per cardiology. Patient remains on AC mode ventilation rate 12, tidal volume 450, FiO2 30% and PEEP of 6. Continue tracheostomy care, airway management and secretion control. 01/23/2020. Cardiac catheterization completed yesterday revealed widely patent previous LAD stent with mild nonobstructive atherosclerosis of the right mid coronary artery and rest of the coronary system was without significant atherosclerosis. The left ventricle ejection fraction was mildly impaired at 40 to 45%. There was some hypokinesis of the basal inferior wall suggestive of previous or recent infarct. Continue GDMT for coronary artery disease including beta blockers, topical nitrates, statin and Plavix. Continue Eliquis for paroxysmal atrial fibrillation and PE. Continue diuresis with Lasix and follow electrolytes closely. Continue Robinul and scopolamine for secretion control and daily SBT per pulmonary. Also, continue bronchodilators and routine trach care/airway management. T-piece trials per pulmonary as tolerated. 01/24/2020. Recent cardiac catheterization has documented widely patent left anterior descending artery stent with minimal nonobstructive diffuse coronary artery disease in the rest of the coronary arteries. Evidence of ischemic cardiomyopathy with inferior wall hypokinesis. Continue with guideline directed medical therapy. Continue Robinul and scopolamine for secretion control and daily SBT per pulmonary. Continue bronchodilators and routine trach care/airway management. T-piece trials per pulmonary as tolerated. 01/25/2020. Continue with guideline directed medical therapy for systolic heart failure. Cardiac catheterization revealed evidence of ischemic cardiomyopathy with inferior wall hypokinesis (EF 40-45%). Patient currently on T-piece with oxygen 10 L/min FiO2 40%. Continue Robinul and scopolamine for secretion control. Continue bronchodilators and routine trach care/airway management. 01/26/2020;Continue with guideline directed medical therapy for systolic heart failure. Cardiac catheterization revealed evidence of ischemic cardiomyopathy with inferior wall hypokinesis (EF 40-45%). Patient currently on T-piece with oxygen 10 L/min FiO2 40%. Continue Robinul and scopolamine for secretion con trol. Continue bronchodilators and routine trach care/airway management. 01/27/2020Continue with guideline directed medical therapy for systolic heart failure. Cardiac catheterization revealed evidence of ischemic cardiomyopathy with inferior wall hypokinesis (EF 40-45%). Patient currently on T-piece with oxygen 10 L/min FiO2 40%. Continue Robinul and scopolamine for secretion control. Continue bronchodilators and routine trach care/airway management. 01/28/2020Continue with guideline directed medical therapy for systolic heart failure. Cardiac catheterization revealed evidence of ischemic cardiomyopathy with inferior wall hypokinesis (EF 40-45%). Patient currently on T-piece with o xygen 10 L/min FiO2 40%. Continue Robinul and scopolamine for secretion control. Continue bronchodilators and routine trach care/airway management. 01/29/2020 Continue with guideline directed medical therapy for systolic heart failure. Cardiac catheterization revealed evidence of ischemic cardiomyopathy with inferior wall hypokinesis (EF 40-45%). Patient currently on T-piece with oxygen 10 L/min FiO2 40%. Continue Robinul and scopolamine for secretion control. Continue bronchodilators and routine trach care/airway management. 01/30/2020 Continue with guideline directed medical therapy for systolic heart failure. Cardiac catheterization revealed evidence of ischemic cardiomyopathy with inferior wall hypokinesis (EF 40-45%). Patient currently on T-piece with oxygen 10 L/min FiO2 40%. Continue Robinul and scopolamine for secretion control. Continue bronchodilators and routine trach care/airway management. Patient has recurrent A. fib and currently on amiodarone, continue beta-hebert, and Eliquis. Patient is on IV diuresis January 31, 2020. Patient resting comfortably. Catheterization with inferior wall hypokinesis ejection fraction 40 to 45%. Was unable to wean tracheostomy at this time. Failed T-piece trial initially. Secretions improved with addition of Robinul. Pulmonology for trach care and airway management and continue to wean. Atrial fibrillation rate well controlled at 81. Currently on amiodarone beta- hebert and anticoagulation with Eliquis. CHF continue present diuresis. February 01, 2020. Patient resting comfortably. No new concerns at this time patient is anticipating discharge. Still failed T-piece trial at this time again. Patient secretions have improved with Robinul all. Atrial fibrillation heart rate 70s to 80s. Well-controlled current anticoagulation Congestive heart failure compensated at this particular time. February 02, 2020 Patient with episode of projectile vomiting. Most likely source partial bowel obstruction versus tube feeds. Will obtain chest x-ray to rule out aspiration. We will also hold tube feeds for 12 hours and obtain KUB. Area tracheostomy needs to be cleaned out as well. Patient obviously has failed T-piece trial again this time. Resume weaning parameters in a.m. Unlikely the secretions that have been fairly well controlled. Atrial fibrillation rate have remained well controlled. Continue amiodarone and beta-hebert. Metoprolol. Congestive heart failure ejection fraction 40 to 45% patient had inferior wall hypokinesis on catheterization otherwise stable. Continue present diuresis Acute respiratory failure unable to wean tracheostomy at this time. Failed T- piece trial again. Despite improve secretions. Continue bronchodilators and weaning parameters. Projectile vomiting. Rule out small bowel obstruction rule out ileus. Will hold tube feeds obtain imaging to rule out aspiration and bowel obstruction as well. Continue antibiotics. 02/02: Discussed with Nursing staff, patient with some mild change in mental status, not following commands like prior,WILL OBTAIN HEAD CT remains intubated on full mechanical ventilatory support. Today is my first day seeing the patient , have reviewed all records so far. Patients still with elevated heart rate of Afib with RVR continue amiodarone and metoprolol. LVEF 40 to 45%. Continue Eliquis FOR THE Acute PE/DVT. Partial SBO vs ileus- KUB is negative. Will monitor, No further vomiting noted. If no improvement will repeat a chest xray to ensure no aspiration in the last 24 hrs. Will initiate sepsis work up, Obtain cultures, cxr- no change, only showing stable bilateral pulmonary opacities, lactate checked and wnl. Mild elevation in WBC. will recheck in am. IF Continued fever, will reconsult ID. 02/03: Mental status more improved, agree with Reglan will change to IV scheduled for two days, no new vomiting. Pseudomonas A in Sputum. 02/04: Clinical improving, amiodarone discontinued due to LFTs, continue Metoprolol. Discussed with GI, started on Golytely to clear impaction. Started on dialy Miralax. 02/05: Continue supportive care. Noted bowel movement, continue bowel regimen 02/06: Cardiology input noted beta-hebert increased for better suppression of atrial fibrillation. Continue to monitor, no other evidence of nausea vomiting noted. Discussed with respiratory therapist will be continued on weaning pro tocol with pressure support today. 02/07: Patient successfully weaned off the ventilator, No new complaints, continue monitoring, BM noted, Discussed with pulmonary, The high probability of a clinically significant, sudden or life threatening deterioration of the [Pulmonary, GI, cardiac] system(s) required my full and direct attention, intervention and personal management. The aggregate critical care time was [35] minutes. This time is in addition to time spent performing reported procedures but includes the following: [x] Data Review and interpretation [x] Patient assessment and monitoring of vital signs [x] Documentation [x] Medication orders and management History Interval history: Patient seen and examined, more awake today, now off the vent to Tpiece following commands, Wants ICE. Hospitalist Physical - Physical exam Narrative exam: General appearance: Present: well-nourished, AWAKE, oriented - EENT Eyes: Present: PERRL, EOM intact. Absent: scleral icterus ENT: clear oral mucosa, dentition normal, NGT - Neck Neck: Present: supple, normal ROM, On T-PIECE - Respiratory Respiratory effort: normal, mechanical ventilation Respiratory: bilateral: rales - Cardiovascular Rhythm: regular Heart Sounds: Present: S1 & S2. Absent: gallop, systolic murmur, diastolic murmur, rub - Extremities Extremities: no ischemia, pulses intact, pulses symmetrical, No edema, Full ROM Peripheral Pulses: within normal limits - Abdominal General gastrointestinal: Present: PEG TUBE Site intact, soft, non-tender, non- distended, normal bowel sounds. Absent: mass - Integumentary Integumentary: Present: clear, warm, dry. Absent: rash - Musculoskeletal Musculoskeletal: strength equal bilaterally - Psychiatric Psychiatric: cooperative - Constitutional Vitals: Temp Pulse Resp BP Pulse Ox 97.7 F 125 H 14 103/67 100 02/08/20 08:00 02/08/20 11:47 02/08/20 11:00 02/08/20 11:47 02/08/20 11:23 General appearance: Present: mild distress, other (Diaphoretic) HEART Score - HEART Score Troponin: Troponin T < 0.010 ng/mL (0.00-0.029) 01/19/20 01:35 Results - Labs CBC & Chem 7: 02/07/20 04:57 02/07/20 04:57 Labs: Laboratory Last Values WBC 7.2 K/mm3 (4.5-11.0) 02/07/20 04:57 RBC 3.73 M/mm3 (3.65-5.03) 02/07/20 04:57 Hgb 9.2 gm/dl (11.8-15.2) L 02/07/20 04:57 Hct 29.7 % (35.5-45.6) L 02/07/20 04:57 MCV 80 fl (84-94) L 02/07/20 04:57 MCH 25 pg (28-32) L 02/07/20 04:57 MCHC 31 % (32-34) L 02/07/20 04:57 RDW 20.2 % (13.2-15.2) H 02/07/20 04:57 Plt Count 230 K/mm3 (140-440) 02/07/20 04:57 Lymph % (Auto) 17.5 % (13.4-35.0) 02/03/20 07:04 [place] % (Auto) 9.4 % (0.0-7.3) H 02/03/20 07:04 Eos % (Auto) 0.2 % (0.0-4.3) 02/03/20 07:04 Baso % (Auto) 0.6 % (0.0-1.8) 02/03/20 07:04 Lymph # (Auto) 2.3 K/mm3 (1.2-5.4) 02/03/20 07:04 [place] # (Auto) 1.2 K/mm3 (0.0-0.8) H 02/03/20 07:04 Eos # (Auto) 0.0 K/mm3 (0.0-0.4) 02/03/20 07:04 Baso # (Auto) 0.1 K/mm3 (0.0-0.1) 02/03/20 07:04 Add Manual Diff Complete 12/19/19 11:32 Total Counted 100 12/19/19 11:32 Seg Neutrophils % 72.3 % (40.0-70.0) H 02/03/20 07:04 Seg Neuts % (Manual) 82.0 % (40.0-70.0) H 12/19/19 11:32 Band Neutrophils % 0 % 12/19/19 11:32 Lymphocytes % (Manual) 10.0 % (13.4-35.0) L 12/19/19 11:32 Reactive Lymphs % (Man) 0 % 12/19/19 11:32 Monocytes % (Manual) 6.0 % (0.0-7.3) 12/19/19 11:32 Eosinophils % (Manual) 2.0 % (0.0-4.3) 12/19/19 11:32 Basophils % (Manual) 0 % (0.0-1.8) 12/19/19 11:32 Metamyelocytes % 0 % 12/19/19 11:32 Myelocytes % 0 % 12/19/19 11:32 Promyelocytes % 0 % 12/19/19 11:32 Blast Cells % 0 % 12/19/19 11:32 Nucleated RBC % 1.0 % (0.0-0.9) H 12/19/19 11:32 Seg Neutrophils # 9.4 K/mm3 (1.8-7.7) H 02/03/20 07:04 Seg Neutrophils # Man 12.0 K/mm3 (1.8-7.7) H 12/19/19 11:32 Band Neutrophils # 0.0 K/mm3 12/19/19 11:32 Lymphocytes # (Manual) 1.5 K/mm3 (1.2-5.4) 12/19/19 11:32 Abs React Lymphs (Man) 0.0 K/mm3 12/19/19 11:32 Monocytes # (Manual) 0.9 K/mm3 (0.0-0.8) H 12/19/19 11:32 Eosinophils # (Manual) 0.3 K/mm3 (0.0-0.4) 12/19/19 11:32 Basophils # (Manual) 0.0 K/mm3 (0.0-0.1) 12/19/19 11:32 Metamyelocytes # 0.0 K/mm3 12/19/19 11:32 Myelocytes # 0.0 K/mm3 12/19/19 11:32 Promyelocytes # 0.0 K/mm3 12/19/19 11:32 Blast Cells # 0.0 K/mm3 12/19/19 11:32 WBC Morphology Not Reportable 12/19/19 11:32 Hypersegmented Neuts Not Reportable 12/19/19 11:32 Hyposegmented Neuts Not Reportable 12/19/19 11:32 Hypogranular Neuts Not Reportable 12/19/19 11:32 Smudge Cells Not Reportable 12/19/19 11:32 Toxic Granulation Not Reportable 12/19/19 11:32 Toxic Vacuolation Not Reportable 12/19/19 11:32 Dohle Bodies Not Reportable 12/19/19 11:32 Pelger-Huet Anomaly Not Reportable 12/19/19 11:32 Hector Rods Not Reportable 12/19/19 11:32 Platelet Estimate Consistent w auto 12/19/19 11:32 Clumped Platelets Not Reportable 12/19/19 11:32 Plt Clumps, EDTA Not Reportable 12/19/19 11:32 Large Platelets Not Reportable 12/19/19 11:32 Giant Platelets Not Reportable 12/19/19 11:32 Platelet Satelliting Not Reportable 12/19/19 11:32 Plt Morphology Comment Not Reportable 12/19/19 11:32 RBC Morphology Not Reportable 12/19/19 11:32 Dimorphic RBCs Not Reportable 12/19/19 11:32 Polychromasia Not Reportable 12/19/19 11:32 Hypochromasia Few 12/19/19 11:32 Poikilocytosis Not Reportable 12/19/19 11:32 Anisocytosis 1+ 12/19/19 11:32 Microcytosis Few 12/19/19 11:32 Macrocytosis Few 12/19/19 11:32 Spherocytes Not Reportable 12/19/19 11:32 Pappenheimer Bodies Not Reportable 12/19/19 11:32 Sickle Cells Not Reportable 12/19/19 11:32 Target Cells Not Reportable 12/19/19 11:32 Tear Drop Cells Not Reportable 12/19/19 11:32 Ovalocytes Not Reportable 12/19/19 11:32 Helmet Cells Not Reportable 12/19/19 11:32 Gottlieb-Yettem Bodies Not Reportable 12/19/19 11:32 [place] Rings Not Reportable 12/19/19 11:32 [place] Cells Not Reportable 12/19/19 11:32 Bite Cells Not Reportable 12/19/19 11:32 Crenated Cell Not Reportable 12/19/19 11:32 Elliptocytes Not Reportable 12/19/19 11:32 Acanthocytes (Spur) Not Reportable 12/19/19 11:32 Rouleaux Not Reportable 12/19/19 11:32 Hemoglobin C Crystals Not Reportable 12/19/19 11:32 Schistocytes Not Reportable 12/19/19 11:32 Malaria parasites Not Reportable 12/19/19 11:32 [place] Bodies Not Reportable 12/19/19 11:32 Hem Pathologist Commnt No 12/19/19 11:32 PT 27.0 Sec. (12.2-14.9) H 02/07/20 15:03 INR 2.46 (0.87-1.13) H 02/07/20 15:03 APTT 31.5 Sec. (24.2-36.6) 01/22/20 09:58 Heparin Anti-Xa Level 1.34 U.I./ml (0.3-0.7) H 01/22/20 04:45 ABG pH 7.447 pH Units (7.350-7.450) 01/25/20 21:02 POC ABG pCO2 45.6 mmHg (32.0-48.0) 01/12/20 13:58 ABG pCO2 47.0 mm Hg 01/25/20 21:02 POC ABG pO2 76.6 mmHg (83-108) L 01/12/20 13:58 ABG pO2 57.5 mm Hg (80.0-90.0) L 01/25/20 21:02 POC ABG HCO3 31.2 01/12/20 13:58 ABG HCO3 31.7 mmol/L (20.0-26.0) H 01/25/20 21:02 ABG O2 Saturation 90.3 % (95.0-99.0) L 01/25/20 21:02 ABG O2 Content 16.0 (0.0-44) 01/25/20 21:02 POC ABG Base Excess 6.5 01/12/20 13:58 ABG Base Excess 6.6 mmol/L (-2.0-3.0) H 01/25/20 21:02 ABG Hemoglobin 13.0 gm/dl (14.0-18.0) L 01/25/20 21:02 ABG Oxyhemoglobin 84 (94-98) L 12/22/19 03:22 ABG Carboxyhemoglobin 2.5 % (0.0-5.0) 01/25/20 21:02 ABG Methemoglobin 0.6 % (0.0-1.5) 01/25/20 21:02 ABG Sodium 136.8 mmol/L (136.0-145.0) 01/12/20 13:58 ABG Potassium 3.7 mmol/L (3.40-4.50) 01/12/20 13:58 ABG Chloride 103.0 mmol/L (98-107) 01/12/20 13:58 ABG Glucose 99 mg/dL (65-95) H 01/12/20 13:58 Oxyhemoglobin 87.5 % (95.0-99.0) L 01/25/20 21:02 Carboxyhemoglobin 0.7 (0.5-1.5) 12/22/19 03:22 FiO2 40 % 01/25/20 21:02 Sodium 145 mmol/L (137-145) 02/07/20 04:57 Potassium 3.4 mmol/L (3.6-5.0) L D 02/07/20 04:57 Chloride 103.0 mmol/L (98-107) 02/07/20 04:57 Carbon Dioxide 32 mmol/L (22-30) H 02/07/20 04:57 Anion Gap 13 mmol/L 02/07/20 04:57 BUN 39 mg/dL (9-20) H 02/07/20 04:57 Creatinine 1.1 mg/dL (0.8-1.3) 02/07/20 04:57 Estimated GFR > 60 ml/min 02/07/20 04:57 BUN/Creatinine Ratio 35 % 02/07/20 04:57 Glucose 106 mg/dL (75-100) H 02/07/20 04:57 POC Glucose 102 mg/dL (70-105) 02/08/20 06:07 Lactic Acid 1.60 mmol/L (0.7-2.0) 02/03/20 12:49 Calcium 9.3 mg/dL (8.4-10.2) 02/07/20 04:57 Ferritin 84.4 ng/mL (30.0-300.0) 11/24/19 04:53 Phosphorus 4.10 mg/dL (2.5-4.5) 01/31/20 19:24 Magnesium 2.60 mg/dL (1.7-2.3) H 02/03/20 12:49 Total Bilirubin 1.60 mg/dL (0.1-1.2) H 02/07/20 15:03 Direct Bilirubin 1.2 mg/dL (0-0.2) H 02/07/20 15:03 Indirect Bilirubin 0.4 mg/dL 02/07/20 15:03 Total Creatine Kinase 141 units/L (55-170) 11/24/19 02:53 CK-MB (CK-2) 4.3 ng/mL (0.0-4.0) H 11/24/19 02:53 AST 424 units/L (5-40) H 02/07/20 15:03 ALT 796 units/L (7-56) H 02/07/20 15:03 CK-MB (CK-2) Rel Index 3.0 (0-4) 11/24/19 02:53 Alkaline Phosphatase 101 units/L (35-129) 02/07/20 15:03 C-Reactive Protein 8.50 mg/dL (0.00-1.30) H 12/01/19 12:16 Ammonia 35.0 umol/L (25-60) 02/03/20 12:49 Lactate Dehydrogenase 228 units/L (91-180) H 12/19/19 04:45 Troponin T < 0.010 ng/mL (0.00-0.029) 01/19/20 01:35 NT-Pro-B Natriuret Pep 3866 pg/mL (0-900) H 01/01/20 10:40 Total Protein 6.5 g/dL (6.3-8.2) 02/07/20 15:03 Albumin 2.9 g/dL (3.9-5) L 02/07/20 15:03 Albumin/Globulin Ratio 0.8 % 02/07/20 15:03 Procalcitonin 0.44 ng/mL (<0.15) 02/03/20 12:49 Arterial Blood Glucose 99 mg/dL (65-95) H 01/12/20 13:58 Arterial Blood Ionized Calcium 4.8 mg/dL (4.6-5.3) 01/12/20 13:58 Urine Color [place] (Yellow) 12/31/19 18:04 Urine Turbidity Clear (Clear) 12/31/19 18:04 Urine pH 5.0 (5.0-7.0) 12/31/19 18:04 Ur Specific [place] 1.023 (1.003-1.030) 12/31/19 18:04 Urine Protein <15 mg/dl mg/dL (Negative) 12/31/19 18:04 Urine Glucose (UA) Neg mg/dL (Negative) 12/31/19 18:04 Urine Ketones Neg mg/dL (Negative) 12/31/19 18:04 Urine Blood Neg (Negative) 12/31/19 18:04 Urine Bacteria (Auto) 1+ /HPF (Negative) 12/03/19 06:03 Urine Nitrite Neg (Negative) 12/31/19 18:04 Urine Bilirubin Neg (Negative) 12/31/19 18:04 Urine Urobilinogen 4.0 mg/dL (<2.0) 12/31/19 18:04 Ur Leukocyte Esterase Neg (Negative) 12/31/19 18:04 Urine WBC (Auto) 2.0 /HPF (0.0-6.0) 12/31/19 18:04 Urine RBC (Auto) 3.0 /HPF (0.0-6.0) 12/31/19 18:04 U Epithel Cells (Auto) 2.0 /HPF (0-13.0) 12/31/19 18:04 Urine Mucus 1+ /HPF 12/31/19 18:04 Urine Creatinine 57.4 mg/dL (0.1-20.0) H 01/31/20 Unknown Urine Sodium 59 mmol/L 01/31/20 Unknown Vancomycin Trough 14.2 ug/mL (5.0-20.0) 12/13/19 15:01 Coronavirus (PCR) Negative (Negative) 12/29/19 10:07 Hepatitis A IgM Ab Non-reactive (NonReactive) 02/05/20 06:37 Hep Bs Antigen Non-reactive (Negative) 02/05/20 06:37 Hep B Core IgM Ab Non-reactive (NonReactive) 02/05/20 06:37 Hepatitis C Antibody Non-reactive (NonReactive) 02/05/20 06:37 Blood Type O POSITIVE 01/21/20 13:00 Antibody Screen Negative 01/21/20 13:00 Microbiology: Microbiology 02/03/20 15:52 Peripheral/Venous Blood Culture - Preliminary NO GROWTH AFTER 4 DAYS 02/03/20 15:52 Peripheral/Venous Blood Culture - Preliminary NO GROWTH AFTER 4 DAYS - Diagnostic Impressions Diagnostic Impressions: Echocardiogram 11/29/19 07:37 Transthoracic Echocardiogram Indication: CHF BP: 116/72 HR: 33 Conclusions *The study is technically limited due to poor acoustic windows. *Global left ventricular systolic function is normal. *The estimated ejection fraction is 50-55%. *Mild concentric left ventricular hypertrophy is observed. *There is trace of mitral regurgitation. *There is mild tricuspid regurgitation. Findings Procedure Info: The study quality is poor. The study is technically limited due to poor acoustic windows. The study is technically limited due to patient body habitus. Left Ventricle: The left ventricular chamber size is normal. Mild concentric left ventricular hypertrophy is observed. Global left ventricular systolic function is normal. The estimated ejection fraction is 50-55%. Left Atrium: The left atrial chamber size is normal. Right Ventricle: The right ventricular cavity size is normal. Right Atrium: The right atrial cavity size is normal. Aortic Valve: The aortic valve leaflets are moderately thickened. There is trace of aortic regurgitation. There is no evidence of aortic stenosis. Mitral Valve: The mitral valve leaflets are mildly thickened. There is trace of mitral regurgitation. There is no evidence of mitral stenosis. Tricuspid Valve: There is mild tricuspid regurgitation. No pulmonary hypertension is noted. Pulmonic Valve: There is trace pulmonic regurgitation. Pericardium: There is no pericardial effusion. Aorta: There is no dilatation of the aortic root. Venous: The inferior vena cava appears normal in size. Contrast: Definity was used to optimize study. Intravenous contrast was used to enhance endocardial border definition. Measurements Chambers 2D Name Value Normal Range Ao root diameter (2D) 3.4 cm (2 - 3.7) Aortic Valve Name Value Normal Range AV Vmax 0.98 m/sec - AV VTI 16.76 cm - AV peak gradient 3.83 mmHg - AV mean gradient 2.57 mmHg - LVOT diameter 3.11 cm - LVOT Vmax 0.68 m/sec - LVOT VTI 11.52 cm - LVOT peak gradient 1.84 mmHg - LVOT mean gradient 1.27 mmHg - SV LVOT 87.31 ml - MALOU (continuity Vmax) 5.24 cm2 - MALOU (continuity VTI) 5.21 cm2 - Tricuspid Valve Name Value Normal Range IVC diameter 2.24 cm (1.2 - 2.3) Hoffman/IV: Voiding Method Indwelling Catheter IV Catheter Type [Right INT / Saline Lock Forearm] IV Catheter Type [Right Hand] Peripheral IV IV Catheter Type [Right Upper INT / Saline Lock arm] IV Catheter Type [Left Upper Mid-line arm] IV Catheter Type [Left Forearm INT / Saline Lock ] IV Catheter Type [Left Hand] Peripheral IV IV Catheter Type [Left Wrist] INT / Saline Lock IV Catheter Type [Right Peripheral IV Antecubital] Active Medications - Current Medications Current Medications: Generic Name Dose Route Start Last Admin Trade Name Freq PRN Reason Stop Dose Admin Acetaminophen 650 mg 12/31/19 11:43 02/03/20 12:54 Tylenol FEEDTUBE 650 mg Q6H PRN Administration Pain, Mild (1-3) Lipase/Protease/Amylase 1 each 01/09/20 12:[address] 10,500 Unit FEEDTUBE PRN PRN For Clogged Feeding Tube Apixaban 5 mg 01/22/20 22:00 02/08/20 09:16 Eliquis PO 5 mg Q12HR CAR Administration Protocol Atorvastatin Calcium 40 mg 01/20/20 22:00 02/07/20 22:00 Lipitor PO 40 mg QHS CAR Administration Clopidogrel Bisulfate 75 mg 01/21/20 06:00 02/08/20 09:16 Plavix PO 75 mg QDAY CAR Administration Dextrose 50 ml 01/31/20 18:51 02/05/20 00:56 D50w (25gm) Syringe IV 50 ml Q30MIN PRN Administration Hypoglycemia Protocol Fentanyl 50 mcg 02/01/20 15:52 Sublimaze IV Q10MIN PRN ANALGESIA Glycopyrrolate 2 mg 01/26/20 20:00 02/08/20 09:16 Glycopyrrolate PO 2 mg TID CAR Administration Haloperidol Lactate 5 mg 12/25/19 10:00 01/22/20 11:35 Haldol IV 5 mg Q6H PRN Administration Unrespon. to mult. doses BZD's Hydrophilic Ointment 1 applic 01/17/20 15:26 Vaseline Lip Therapy TP DIRECT PRN Dry Lips Fentanyl Citrate 2,000 mcg in 100 mls @ 5.65 mls/hr 02/01/20 16:00 02/03/20 11:31 Fentanyl Drip Premix IV 0 mcg/kg/hr TITR CAR 0 mls/hr Titration Protocol 1 MCG/KG/HR Insulin Human Regular 0 unit 02/01/20 18:00 02/08/20 07:16 Humulin R SUB-Q Not Given Q6H [facility] Protocol Lansoprazole 30 mg 02/05/20 16:00 02/08/20 09:16 Prevacid Solutab FEEDTUBE 30 mg QDAY CAR Administration Lorazepam 2 mg 12/25/19 10:00 01/31/20 14:22 Ativan IV 2 mg Q6H PRN Administration AGITATION Metoclopramide HCl 10 mg 02/08/20 12:00 02/08/20 11:40 Reglan IV 10 mg Q6HR CAR Administration Metoprolol Tartrate 5 mg 01/11/20 08:00 02/03/20 07:16 Metoprolol IV 5 mg Q6H PRN Administration SEE INSTRUCTIONS Metoprolol Tartrate 50 mg 02/05/20 12:00 02/08/20 11:47 Metoprolol PO Not Given Q6HR [facility] Midodrine 15 mg 02/04/20 16:00 02/08/20 11:40 Proamatine PO 15 mg TID@0800,1200,1600 CAR Administration Morphine Sulfate 2 mg 01/06/20 15:41 02/07/20 23:51 Morphine IV 2 mg Q4H PRN Administration Pain, Moderate (4-6) Multi-Ingred Cream/Lotion/Oil/Oint 1 applic 02/01/20 15:52 Artificial Tears Ophth Oint OU Q4HR PRN Dry Eye(s) Nitroglycerin 0.4 mg 01/19/20 21:09 01/20/20 03:03 Nitrostat SL 0.4 mg .Q5MIN PRN Administration Chest Pain Ondansetron HCl 4 mg 01/05/20 14:37 02/07/20 00:10 Zofran IV 4 mg Q8H PRN Administration Nausea And Vomiting Polyethylene Glycol 17 gm 12/04/19 22:00 02/07/20 22:00 Miralax 3350 PO 17 gm QHS CAR Administration Quetiapine Fumarate 300 mg 01/13/20 22:00 02/08/20 09:16 Seroquel PO 300 mg BID CAR Administration Scopolamine 1 each 01/07/20 20:00 01/07/20 21:08 Transderm-Scop TD 1 each Q72HR CAR Administration Simple Syrup 15 ml 01/09/20 12:01 Simple Syrup FEEDTUBE PRN PRN Hypoglycemia Simple Syrup 30 ml 01/09/20 12:01 Simple Syrup FEEDTUBE PRN PRN Hypoglycemia Sodium Bicarbonate 325 mg 01/09/20 12:01 Sodium Bicarbonate FEEDTUBE PRN PRN For Clogged Feeding Tube Sodium Chloride 10 ml 11/24/19 10:00 02/08/20 09:17 Sodium Chloride Flush Syringe 10 Ml IV 10 ml BID CAR Administration Tamsulosin HCl 0.8 mg 12/20/19 22:00 02/07/20 23:40 Flomax PO 0.8 mg QHS CAR Administration Nutrition/Malnutrition Assess - Dietary Evaluation Nutrition/Malnutrition Findings: Nutrition Notes Start: 11/24/19 12:22 Freq: Status: Active Protocol: Document 02/04/20 12:28 AL (Rec: 02/04/20 12:29 AL [id number]) Co-Sign 02/04/20 12:28 MK Nutrition Notes Initial or Follow up Brief Note Current Diagnosis Coronary Artery Disease,Heart Failure,Respiratory Failure, Stroke,Hyperlipidemia Other Pertinent Diagnosis Partial SBO, pneu, ventilated trach Current Diet NPO Subjective/Other Information F/U for TF restart and weight. Per RN, patient is still NPO. TF is still on hold. NGT on LIS. Nutrition Intervention Follow-Up By: 02/09/20 Additional Comments F/U for POC
--- NOTE | 2020-02-08 12:20 | Progress Note ---
Assessment and Plan Chest pain, resolved LHC done 01/22/20 widely patent previous LAD stent. We found mild nonobstructive atherosclerosis of the mid right coronary artery. Otherwise the rest of the coronary system was without significant atherosclerosis. LVEF 40 to 45%. There was some hypokinesis of the basal inferior wall suggestive of previous or recent infarct. ECG done 01/19/20 shows sinus rhythm with low voltage QRS and subtle ST segment elevations in the inferolateral leads that suggested possible concern for an acute injury at that time. Atrial fibrillation, paroxysmal on metoprolol amiodarone discontinued due to liver transaminases Ischemic Cardiomyopathy re-echo this presentation reports an LVEF 40-45%. Hx of CAD Multifocal pneumonia negative COVID-19 test x 3 Chronic Respiratory failure s/p trach History of COPD Acute PE/DVT -on Eliquis Anemia Partial SBO vs ileus Recommend: Continue guideline directed medical therapy for coronary artery disease. Otherwise, conservative cardiac management. Subjective Date of service: 02/08/20 Principal diagnosis: Ac hypoxemic resp failure; Pneumonia; PUI COVID-19; CHF; COPD; HTN Interval history: Patient is resting in bed comfortably. No cardiac complaints. Objective Vital Signs Temp Pulse Pulse Resp Resp Resp BP 02/08/20 12:00 98.0 F 02/08/20 11:47 125 H 103/67 02/08/20 11:23 02/08/20 11:00 139 H 14 90/65 02/08/20 10:00 134 H 19 102/63 02/08/20 09:00 138 H 16 104/69 02/08/20 08:00 97.7 F 138 H 138 H 10 L 83/65 02/08/20 07:52 02/08/20 07:51 02/08/20 07:35 121 H 102/73 02/08/20 07:00 112 H 15 100/71 02/08/20 06:00 121 H 16 102/73 02/08/20 05:00 119 H 13 94/70 02/08/20 04:34 117 H 94/70 02/08/20 04:00 97.4 F L 92 H 18 18 24 100/74 02/08/20 03:00 91 H 20 97/70 02/08/20 02:00 90 14 98/71 02/08/20 01:00 89 17 101/69 02/08/20 00:14 02/08/20 00:11 93 H 104/72 02/08/20 00:00 97.5 F L 91 H 14 104/72 02/07/20 23:51 15 02/07/20 23:24 95 H 19 100/68 02/07/20 23:00 89 18 100/68 02/07/20 22:00 94 H 19 103/76 02/07/20 21:00 90 15 100/69 02/07/20 20:00 97.6 F 87 13 97/66 02/07/20 19:45 88 99/68 02/07/20 19:24 18 24 02/07/20 19:23 85 02/07/20 19:00 94 H 14 108/81 02/07/20 18:00 88 16 102/68 02/07/20 17:00 92 H 16 96/73 02/07/20 16:36 97.9 F 02/07/20 16:00 94 H 17 106/79 02/07/20 15:56 89 16 101/75 02/07/20 15:00 89 16 101/71 02/07/20 14:00 92 H 18 104/71 02/07/20 13:07 89 101/69 02/07/20 13:00 90 18 101/69 02/07/20 12:28 91 H 17 101/67 Pulse Ox Pulse Ox 02/08/20 12:00 02/08/20 11:47 02/08/20 11:23 100 02/08/20 11:00 100 02/08/20 10:00 100 02/08/20 09:00 99 02/08/20 08:00 100 02/08/20 07:52 98 02/08/20 07:51 98 02/08/20 07:35 98 02/08/20 07:00 100 02/08/20 06:00 100 02/08/20 05:00 100 02/08/20 04:34 99 02/08/20 04:00 100 02/08/20 03:00 100 02/08/20 02:00 100 02/08/20 01:00 100 02/08/20 00:14 100 02/08/20 00:11 100 02/08/20 00:00 100 02/07/20 23:51 02/07/20 23:24 100 02/07/20 23:00 100 02/07/20 22:00 100 02/07/20 21:00 100 02/07/20 20:00 100 02/07/20 19:45 100 02/07/20 19:24 02/07/20 19:23 02/07/20 19:00 100 02/07/20 18:00 100 02/07/20 17:00 100 02/07/20 16:36 02/07/20 16:00 100 02/07/20 15:56 100 02/07/20 15:00 100 02/07/20 14:00 100 02/07/20 13:07 02/07/20 13:00 100 02/07/20 12:28 100 - Physical Examination General: No Apparent Distress (ALERT), Other (s/p trach) HEENT: Positive: PERRL Cardiac: Positive: irregularly irregular Neuro: Positive: Weakness Extremities: Absent: edema - Labs and Meds Cardiac Enzymes 02/07/20 Range/Units 15:03 AST 424 H (5-40) units/L Coagulation 02/07/20 Range/Units 15:03 PT 27.0 H (12.2-14.9) Sec. INR 2.46 H (0.87-1.13) Comprehensive Metabolic Panel 02/07/20 Range/Units 15:03 Direct Bilirubin 1.2 H (0-0.2) mg/dL Indirect Bilirubin 0.4 mg/dL AST 424 H (5-40) units/L ALT 796 H (7-56) units/L Alkaline Phosphatase 101 (35-129) units/L Total Protein 6.5 (6.3-8.2) g/dL Albumin 2.9 L (3.9-5) g/dL - Allied health notes Allied health notes reviewed: nursing
--- NOTE | 2020-02-08 15:57 | Progress Note ---
Assessment and Plan Acute hypoxemic respiratory failure Bilateral pneumonia, community acquired. Acute LLL branch P.E. Acute DVT Person under investigation for COVID-19 infection. Acute congestive heart failure exacerbation. History of cerebrovascular accident. Acute chronic obstructive pulmonary disease exacerbation. Hypertension and hypertensive urgency at presentation. History of arthritis. Leukocytosis. Lactic acidosis. Oropharyngeal dysphagia - increase Reglan to 10 mg IV q6h re: Nausea - continue daytime t-piece trials as tolerated (PSV if fails t-piece) - rest on AC qhs for now - continue care as below otherwise; - continue daily SAT's and SBT assessment as tolerated - continue Flomax at increased dose - antiinfective's per ID rec's - Midodrine for BP support - prn mucomyst nebs re: secretions - continue full anticoagulation with Apixaban - continue seroquel for anxiolysis / delirium - COVID isolation per facility protocol - prn diuresis while following electrolytes / I's & O's - continue to wean oxygen for O2 sat's > 92% - continue bronchodilators with routine trach care and pulmonary hygiene per RT - continue Robinul & Scopolamine for secretion control - VAP bundle addressed (Aspiration precautions, HOB >40) - continue to wean per pulmonary driven protocols - sedation target is RASS 0 to -1 - continue prn analgesia per CPOT score - follow clinically re: fever curves / trend WBC - Avoid delirium (no benzodiazepines if they can be avoided) - Maintain sleep-wake cycle - enteral nutrition at goal rate as tolerated - continue accucheck's with glycemic control per SSI for target blood glucose goal of 140-180 mg/dL while critically ill; Avoid hypoglycemia - for VTE he is on IV Heparin - continue stress ulcer prophylaxis with Famotidine - continue mobility protocols for pressure ulcer prophylaxis - continue fall precautions - continue wound care management per RN / WCT - Supportive transfusions to keep HgB>7g/dL - CXR's and ABG's prn - Continue to monitor neurologic function - Continue chronic home medications - Continue all supportive care ........ re-evaluate in am & prn CONDITION: CRITICAL PROGNOSIS: GUARDED CODE STATUS: FULL CODE The high probability of a clinically significant, sudden or life threatening deterioration of the [Respiratory, cardiovascular & neurological] system(s) required my full and direct attention, intervention and personal management. The aggregate critical care time was [32] minutes without overlap. Time includes spent on [x] Data Review and interpretation [x] Patient assessment and monitoring of vital signs [x] Documentation [x] Medication orders and management Subjective Date of service: 02/08/20 Principal diagnosis: Ac hypoxemic resp failure; Pneumonia; PUI COVID-19; CHF; COPD; HTN Interval history: Patient is seen today for: Acute hypoxemic respiratory failure; Adan. Pneumonia (CAP); PUI COVID-19 infection; AE-CHF; AE-COPD; H/O CVA; HTN Seen and examined at bedside; 24 hour events reviewed; nursing and respiratory care staff consulted; no adverse overnight events reported to me; resting peacefully in bed; on SBT via T-piece today and tolerating well so far; episode of severe nausea overnight but no emesis ; afebrile Objective Vital Signs - 12hr 02/08/20 02/08/20 02/08/20 04:00 04:34 05:00 Temperature 97.4 F L Pulse Rate 92 H 117 H 119 H Pulse Rate [ From Monitor] Respiratory 18 13 Rate Respiratory 18 Rate [Abdomen] Respiratory 24 Rate [ Generalized] Blood Pressure 100/74 94/70 94/70 O2 Sat by Pulse 100 99 100 Oximetry O2 Sat by Pulse Oximetry [ Assessment] 02/08/20 02/08/20 02/08/20 06:00 07:00 07:35 Temperature Pulse Rate 121 H 112 H 121 H Pulse Rate [ From Monitor] Respiratory 16 15 Rate Respiratory Rate [Abdomen] Respiratory Rate [ Generalized] Blood Pressure 102/73 100/71 102/73 O2 Sat by Pulse 100 100 98 Oximetry O2 Sat by Pulse Oximetry [ Assessment] 02/08/20 02/08/20 02/08/20 07:51 07:52 08:00 Temperature 97.7 F Pulse Rate 138 H Pulse Rate [ 138 H From Monitor] Respiratory 10 L Rate Respiratory Rate [Abdomen] Respiratory Rate [ Generalized] Blood Pressure 83/65 O2 Sat by Pulse 98 100 Oximetry O2 Sat by Pulse 98 Oximetry [ Assessment] 02/08/20 02/08/20 02/08/20 09:00 10:00 11:00 Temperature Pulse Rate 138 H 134 H 139 H Pulse Rate [ From Monitor] Respiratory 16 19 14 Rate Respiratory Rate [Abdomen] Respiratory Rate [ Generalized] Blood Pressure 104/69 102/63 90/65 O2 Sat by Pulse 99 100 100 Oximetry O2 Sat by Pulse Oximetry [ Assessment] 02/08/20 02/08/20 02/08/20 11:23 11:47 12:00 Temperature 98.0 F Pulse Rate 125 H 137 H Pulse Rate [ 137 H From Monitor] Respiratory 18 Rate Respiratory Rate [Abdomen] Respiratory Rate [ Generalized] Blood Pressure 103/67 101/76 O2 Sat by Pulse 100 100 Oximetry O2 Sat by Pulse Oximetry [ Assessment] 02/08/20 02/08/20 13:00 14:00 Temperature Pulse Rate 134 H 133 H Pulse Rate [ From Monitor] Respiratory 19 18 Rate Respiratory Rate [Abdomen] Respiratory Rate [ Generalized] Blood Pressure 107/66 96/69 O2 Sat by Pulse 100 99 Oximetry O2 Sat by Pulse Oximetry [ Assessment] Constitutional: no acute distress, other (elelelderly and obese male, normocephalic with mildly increased respiratory effort at rest) Eyes: non-icteric ENT: oropharynx moist, other (+ midline tracheostomy) Neck: supple, no JVD Effort: mildly labored Ascultation: Bilateral: diminished breath sounds, rhonchi Percussion: Bilateral: not dull Cardiovascular: irregular rhythm, other (flow murmur) Gastrointestinal: normoactive bowel sounds, soft, non-tender, non-distended (protuberant), other (protuberant; PEG in place) Integumentary: normal Extremities: no cyanosis, pulses normal, no ischemia or petechiae, edema (bilateral upper ) Neurologic: non-focal exam (moves extremities), pupils equal and round, CN II- XII normal, motor strength normal and (weak) Psychiatric: mood appropriate, affect normal CBC and BMP: 02/07/20 04:57 02/07/20 04:57 ABG, PT/INR, D-dimer: ABG ABG pH 7.447 pH Units (7.350-7.450) 01/25/20 21:02 POC ABG pCO2 45.6 mmHg (32.0-48.0) 01/12/20 13:58 ABG pCO2 47.0 mm Hg 01/25/20 21:02 POC ABG pO2 76.6 mmHg (83-108) L 01/12/20 13:58 ABG pO2 57.5 mm Hg (80.0-90.0) L 01/25/20 21:02 POC ABG HCO3 31.2 01/12/20 13:58 ABG O2 Saturation 90.3 % (95.0-99.0) L 01/25/20 21:02 PT/INR, D-dimer PT 27.0 Sec. (12.2-14.9) H 02/07/20 15:03 INR 2.46 (0.87-1.13) H 02/07/20 15:03 Abnormal lab findings: Abnormal Labs 11/24/19 11/24/19 11/24/19 02:53 02:53 03:45 WBC 14.3 H RBC Hgb Hct MCHC RDW 17.2 H MCV MCH Lymph % (Auto) Saunders % (Auto) Saunders # Eos # Lymph # (Auto) Saunders # (Auto) Eos # (Auto) Seg Neutrophils % Seg Neuts % (Manual) Baso # (Auto) Lymphocytes % (Manual) Monocytes % (Manual) Eosinophils % (Manual) Basophils % (Manual) Seg Neutrophils # Seg Neutrophils # Man 8.3 H Lymphocytes # (Manual) Monocytes # (Manual) 0.9 H Eosinophils # (Manual) Nucleated RBC % Basophils # (Manual) PT INR APTT Heparin Anti-Xa Level ABG pH 7.313 L POC ABG pO2 ABG pO2 102.8 H ABG HCO3 ABG O2 Saturation ABG Base Excess -2.9 L POC ABG pCO2 ABG Hemoglobin ABG Oxyhemoglobin ABG Glucose Oxyhemoglobin 93.9 L Sodium Potassium Chloride Carbon Dioxide BUN Creatinine Glucose 195 H POC Glucose Lactic Acid Calcium Phosphorus Magnesium AST ALT Lactate Dehydrogenase Total Bilirubin Direct Bilirubin CK-MB (CK-2) 4.3 H C-Reactive Protein NT-Pro-B Natriuret Pep 1181 H Total Protein Albumin Arterial Blood Glucose Urine WBC (Auto) Urine Creatinine 11/24/19 11/24/19 11/24/19 04:53 04:53 10:37 WBC RBC Hgb Hct MCHC RDW MCV MCH Lymph % (Auto) Saunders % (Auto) Saunders # Eos # Lymph # (Auto) Saunders # (Auto) Eos # (Auto) Seg Neutrophils % Seg Neuts % (Manual) Baso # (Auto) Lymphocytes % (Manual) Monocytes % (Manual) Eosinophils % (Manual) Basophils % (Manual) Seg Neutrophils # Seg Neutrophils # Man Lymphocytes # (Manual) Monocytes # (Manual) Eosinophils # (Manual) Nucleated RBC % Basophils # (Manual) PT INR APTT Heparin Anti-Xa Level ABG pH POC ABG pO2 ABG pO2 ABG HCO3 ABG O2 Saturation ABG Base Excess POC ABG pCO2 ABG Hemoglobin ABG Oxyhemoglobin ABG Glucose Oxyhemoglobin Sodium Potassium Chloride Carbon Dioxide BUN Creatinine Glucose 162 H POC Glucose Lactic Acid 2.40 H* 2.50 H* Calcium Phosphorus Magnesium AST ALT Lactate Dehydrogenase 240 H Total Bilirubin Direct Bilirubin CK-MB (CK-2) C-Reactive Protein NT-Pro-B Natriuret Pep Total Protein Albumin Arterial Blood Glucose Urine WBC (Auto) Urine Creatinine 11/24/19 11/24/19 11/24/19 12:21 14:50 19:54 WBC RBC Hgb Hct MCHC RDW MCV MCH Lymph % (Auto) Saunders % (Auto) Saunders # Eos # Lymph # (Auto) Saunders # (Auto) Eos # (Auto) Seg Neutrophils % Seg Neuts % (Manual) Baso # (Auto) Lymphocytes % (Manual) Monocytes % (Manual) Eosinophils % (Manual) Basophils % (Manual) Seg Neutrophils # Seg Neutrophils # Man Lymphocytes # (Manual) Monocytes # (Manual) Eosinophils # (Manual) Nucleated RBC % Basophils # (Manual) PT INR APTT Heparin Anti-Xa Level ABG pH POC ABG pO2 ABG pO2 ABG HCO3 ABG O2 Saturation ABG Base Excess POC ABG pCO2 ABG Hemoglobin ABG Oxyhemoglobin ABG Glucose Oxyhemoglobin Sodium Potassium Chloride Carbon Dioxide BUN Creatinine Glucose POC Glucose 145 H 143 H 124 H Lactic Acid Calcium Phosphorus Magnesium AST ALT Lactate Dehydrogenase Total Bilirubin Direct Bilirubin CK-MB (CK-2) C-Reactive Protein NT-Pro-B Natriuret Pep Total Protein Albumin Arterial Blood Glucose Urine WBC (Auto) Urine Creatinine 11/25/19 11/25/19 11/25/19 00:18 03:18 05:11 WBC 13.7 H RBC Hgb Hct MCHC RDW 17.1 H MCV MCH Lymph % (Auto) 10.8 L Saunders % (Auto) 8.7 H Saunders # 1.2 H Eos # Lymph # (Auto) Saunders # (Auto) Eos # (Auto) Seg Neutrophils % 80.2 H Seg Neuts % (Manual) Baso # (Auto) Lymphocytes % (Manual) Monocytes % (Manual) Eosinophils % (Manual) Basophils % (Manual) Seg Neutrophils # 11.0 H Seg Neutrophils # Man Lymphocytes # (Manual) Monocytes # (Manual) Eosinophils # (Manual) Nucleated RBC % Basophils # (Manual) PT INR APTT Heparin Anti-Xa Level ABG pH 7.333 L POC ABG pO2 ABG pO2 61.2 L ABG HCO3 ABG O2 Saturation 90.2 L ABG Base Excess POC ABG pCO2 ABG Hemoglobin 13.7 L ABG Oxyhemoglobin ABG Glucose Oxyhemoglobin 88.2 L Sodium Potassium Chloride Carbon Dioxide BUN Creatinine Glucose POC Glucose 109 H Lactic Acid Calcium Phosphorus Magnesium AST ALT Lactate Dehydrogenase Total Bilirubin Direct Bilirubin CK-MB (CK-2) C-Reactive Protein NT-Pro-B Natriuret Pep Total Protein Albumin Arterial Blood Glucose Urine WBC (Auto) Urine Creatinine 11/25/19 11/25/19 11/26/19 05:11 11:40 03:12 WBC RBC Hgb Hct MCHC RDW MCV MCH Lymph % (Auto) Saunders % (Auto) Saunders # Eos # Lymph # (Auto) Saunders # (Auto) Eos # (Auto) Seg Neutrophils % Seg Neuts % (Manual) Baso # (Auto) Lymphocytes % (Manual) Monocytes % (Manual) Eosinophils % (Manual) Basophils % (Manual) Seg Neutrophils # Seg Neutrophils # Man Lymphocytes # (Manual) Monocytes # (Manual) Eosinophils # (Manual) Nucleated RBC % Basophils # (Manual) PT INR APTT Heparin Anti-Xa Level ABG pH POC ABG pO2 ABG pO2 155.1 H ABG HCO3 27.8 H ABG O2 Saturation ABG Base Excess POC ABG pCO2 ABG Hemoglobin 12.2 L ABG Oxyhemoglobin ABG Glucose Oxyhemoglobin Sodium Potassium Chloride Carbon Dioxide BUN 23 H Creatinine Glucose 110 H POC Glucose 108 H Lactic Acid Calcium Phosphorus Magnesium AST ALT Lactate Dehydrogenase Total Bilirubin Direct Bilirubin CK-MB (CK-2) C-Reactive Protein NT-Pro-B Natriuret Pep Total Protein Albumin Arterial Blood Glucose Urine WBC (Auto) Urine Creatinine 11/26/19 11/26/19 11/26/19 06:17 10:43 10:43 WBC 11.4 H RBC Hgb Hct MCHC RDW 17.1 H MCV MCH Lymph % (Auto) Saunders % (Auto) Saunders # Eos # Lymph # (Auto) Saunders # (Auto) Eos # (Auto) Seg Neutrophils % Seg Neuts % (Manual) Baso # (Auto) Lymphocytes % (Manual) Monocytes % (Manual) Eosinophils % (Manual) Basophils % (Manual) Seg Neutrophils # Seg Neutrophils # Man Lymphocytes # (Manual) Monocytes # (Manual) Eosinophils # (Manual) Nucleated RBC % Basophils # (Manual) PT INR APTT Heparin Anti-Xa Level ABG pH POC ABG pO2 ABG pO2 ABG HCO3 ABG O2 Saturation ABG Base Excess POC ABG pCO2 ABG Hemoglobin ABG Oxyhemoglobin ABG Glucose Oxyhemoglobin Sodium Potassium Chloride Carbon Dioxide BUN 29 H Creatinine Glucose POC Glucose 107 H Lactic Acid Calcium Phosphorus Magnesium AST ALT Lactate Dehydrogenase Total Bilirubin Direct Bilirubin CK-MB (CK-2) C-Reactive Protein NT-Pro-B Natriuret Pep Total Protein Albumin Arterial Blood Glucose Urine WBC (Auto) Urine Creatinine 11/26/19 11/27/19 11/27/19 17:11 01:53 04:11 WBC RBC Hgb Hct MCHC RDW MCV MCH Lymph % (Auto) Saunders % (Auto) Saunders # Eos # Lymph # (Auto) Saunders # (Auto) Eos # (Auto) Seg Neutrophils % Seg Neuts % (Manual) Baso # (Auto) Lymphocytes % (Manual) Monocytes % (Manual) Eosinophils % (Manual) Basophils % (Manual) Seg Neutrophils # Seg Neutrophils # Man Lymphocytes # (Manual) Monocytes # (Manual) Eosinophils # (Manual) Nucleated RBC % Basophils # (Manual) PT INR APTT Heparin Anti-Xa Level ABG pH POC ABG pO2 ABG pO2 ABG HCO3 29.2 H ABG O2 Saturation ABG Base Excess 3.4 H POC ABG pCO2 ABG Hemoglobin 13.3 L ABG Oxyhemoglobin ABG Glucose Oxyhemoglobin 94.5 L Sodium Potassium Chloride Carbon Dioxide BUN Creatinine Glucose POC Glucose 113 H 108 H Lactic Acid Calcium Phosphorus Magnesium AST ALT Lactate Dehydrogenase Total Bilirubin Direct Bilirubin CK-MB (CK-2) C-Reactive Protein NT-Pro-B Natriuret Pep Total Protein Albumin Arterial Blood Glucose Urine WBC (Auto) Urine Creatinine 11/27/19 11/28/19 11/28/19 05:27 05:00 05:25 WBC RBC Hgb Hct MCHC RDW MCV MCH Lymph % (Auto) Saunders % (Auto) Saunders # Eos # Lymph # (Auto) Saunders # (Auto) Eos # (Auto) Seg Neutrophils % Seg Neuts % (Manual) Baso # (Auto) Lymphocytes % (Manual) Monocytes % (Manual) Eosinophils % (Manual) Basophils % (Manual) Seg Neutrophils # Seg Neutrophils # Man Lymphocytes # (Manual) Monocytes # (Manual) Eosinophils # (Manual) Nucleated RBC % Basophils # (Manual) PT INR APTT Heparin Anti-Xa Level ABG pH POC ABG pO2 68.1 L ABG pO2 ABG HCO3 ABG O2 Saturation ABG Base Excess POC ABG pCO2 ABG Hemoglobin ABG Oxyhemoglobin 91.2 L ABG Glucose Oxyhemoglobin Sodium Potassium Chloride Carbon Dioxide BUN Creatinine Glucose POC Glucose 111 H 110 H Lactic Acid Calcium Phosphorus Magnesium AST ALT Lactate Dehydrogenase Total Bilirubin Direct Bilirubin CK-MB (CK-2) C-Reactive Protein NT-Pro-B Natriuret Pep Total Protein Albumin Arterial Blood Glucose Urine WBC (Auto) Urine Creatinine 11/28/19 11/28/19 11/28/19 12:08 13:47 13:47 WBC 11.3 H RBC Hgb Hct MCHC RDW 16.1 H MCV MCH Lymph % (Auto) Saunders % (Auto) 9.9 H Saunders # 1.1 H Eos # Lymph # (Auto) Saunders # (Auto) Eos # (Auto) Seg Neutrophils % 71.4 H Seg Neuts % (Manual) Baso # (Auto) Lymphocytes % (Manual) Monocytes % (Manual) Eosinophils % (Manual) Basophils % (Manual) Seg Neutrophils # 8.1 H Seg Neutrophils # Man Lymphocytes # (Manual) Monocytes # (Manual) Eosinophils # (Manual) Nucleated RBC % Basophils # (Manual) PT INR APTT Heparin Anti-Xa Level ABG pH POC ABG pO2 ABG pO2 ABG HCO3 ABG O2 Saturation ABG Base Excess POC ABG pCO2 ABG Hemoglobin ABG Oxyhemoglobin ABG Glucose Oxyhemoglobin Sodium Potassium Chloride Carbon Dioxide BUN 23 H Creatinine Glucose 123 H POC Glucose 112 H Lactic Acid Calcium Phosphorus Magnesium AST ALT Lactate Dehydrogenase Total Bilirubin Direct Bilirubin CK-MB (CK-2) C-Reactive Protein NT-Pro-B Natriuret Pep Total Protein Albumin 3.7 L Arterial Blood Glucose Urine WBC (Auto) Urine Creatinine 11/28/19 11/29/19 11/29/19 17:26 03:55 17:04 WBC RBC Hgb Hct MCHC RDW MCV MCH Lymph % (Auto) Saunders % (Auto) Saunders # Eos # Lymph # (Auto) Saunders # (Auto) Eos # (Auto) Seg Neutrophils % Seg Neuts % (Manual) Baso # (Auto) Lymphocytes % (Manual) Monocytes % (Manual) Eosinophils % (Manual) Basophils % (Manual) Seg Neutrophils # Seg Neutrophils # Man Lymphocytes # (Manual) Monocytes # (Manual) Eosinophils # (Manual) Nucleated RBC % Basophils # (Manual) PT INR APTT Heparin Anti-Xa Level ABG pH POC ABG pO2 ABG pO2 65.7 L ABG HCO3 28.3 H ABG O2 Saturation 93.9 L ABG Base Excess 3.6 H POC ABG pCO2 ABG Hemoglobin 13.3 L ABG Oxyhemoglobin ABG Glucose Oxyhemoglobin 91.5 L Sodium Potassium Chloride Carbon Dioxide BUN Creatinine Glucose POC Glucose 123 H 119 H Lactic Acid Calcium Phosphorus Magnesium AST ALT Lactate Dehydrogenase Total Bilirubin Direct Bilirubin CK-MB (CK-2) C-Reactive Protein NT-Pro-B Natriuret Pep Total Protein Albumin Arterial Blood Glucose Urine WBC (Auto) Urine Creatinine 11/30/19 11/30/19 11/30/19 04:17 04:17 04:56 WBC 13.4 H RBC Hgb Hct MCHC RDW 15.6 H MCV MCH Lymph % (Auto) Saunders % (Auto) Saunders # Eos # Lymph # (Auto) Saunders # (Auto) Eos # (Auto) Seg Neutrophils % Seg Neuts % (Manual) Baso # (Auto) Lymphocytes % (Manual) Monocytes % (Manual) Eosinophils % (Manual) Basophils % (Manual) Seg Neutrophils # Seg Neutrophils # Man Lymphocytes # (Manual) Monocytes # (Manual) Eosinophils # (Manual) Nucleated RBC % Basophils # (Manual) PT INR APTT Heparin Anti-Xa Level ABG pH POC ABG pO2 ABG pO2 56.3 L ABG HCO3 29.3 H ABG O2 Saturation 91.5 L ABG Base Excess 4.7 H POC ABG pCO2 ABG Hemoglobin 12.1 L ABG Oxyhemoglobin ABG Glucose Oxyhemoglobin 89.2 L Sodium 147 H Potassium Chloride Carbon Dioxide BUN 30 H Creatinine Glucose 124 H POC Glucose Lactic Acid Calcium Phosphorus Magnesium AST ALT Lactate Dehydrogenase Total Bilirubin Direct Bilirubin CK-MB (CK-2) C-Reactive Protein NT-Pro-B Natriuret Pep Total Protein Albumin 3.8 L Arterial Blood Glucose Urine WBC (Auto) Urine Creatinine 11/30/19 11/30/19 11/30/19 05:51 11:54 18:17 WBC RBC Hgb Hct MCHC RDW MCV MCH Lymph % (Auto) Saunders % (Auto) Saunders # Eos # Lymph # (Auto) Saunders # (Auto) Eos # (Auto) Seg Neutrophils % Seg Neuts % (Manual) Baso # (Auto) Lymphocytes % (Manual) Monocytes % (Manual) Eosinophils % (Manual) Basophils % (Manual) Seg Neutrophils # Seg Neutrophils # Man Lymphocytes # (Manual) Monocytes # (Manual) Eosinophils # (Manual) Nucleated RBC % Basophils # (Manual) PT INR APTT Heparin Anti-Xa Level ABG pH POC ABG pO2 ABG pO2 ABG HCO3 ABG O2 Saturation ABG Base Excess POC ABG pCO2 ABG Hemoglobin ABG Oxyhemoglobin ABG Glucose Oxyhemoglobin Sodium Potassium Chloride Carbon Dioxide BUN Creatinine Glucose POC Glucose 127 H 115 H 143 H Lactic Acid Calcium Phosphorus Magnesium AST ALT Lactate Dehydrogenase Total Bilirubin Direct Bilirubin CK-MB (CK-2) C-Reactive Protein NT-Pro-B Natriuret Pep Total Protein Albumin Arterial Blood Glucose Urine WBC (Auto) Urine Creatinine 12/01/19 12/01/19 12/01/19 01:18 05:22 12:16 WBC RBC Hgb Hct MCHC RDW MCV MCH Lymph % (Auto) Saunders % (Auto) Saunders # Eos # Lymph # (Auto) Saunders # (Auto) Eos # (Auto) Seg Neutrophils % Seg Neuts % (Manual) Baso # (Auto) Lymphocytes % (Manual) Monocytes % (Manual) Eosinophils % (Manual) Basophils % (Manual) Seg Neutrophils # Seg Neutrophils # Man Lymphocytes # (Manual) Monocytes # (Manual) Eosinophils # (Manual) Nucleated RBC % Basophils # (Manual) PT INR APTT Heparin Anti-Xa Level ABG pH POC ABG pO2 ABG pO2 ABG HCO3 ABG O2 Saturation ABG Base Excess POC ABG pCO2 ABG Hemoglobin ABG Oxyhemoglobin ABG Glucose Oxyhemoglobin Sodium Potassium 3.5 L Chloride 107.8 H Carbon Dioxide BUN 37 H Creatinine Glucose 157 H POC Glucose 118 H 148 H Lactic Acid Calcium 8.2 L D Phosphorus Magnesium AST 48 H ALT 60 H Lactate Dehydrogenase 194 H Total Bilirubin Direct Bilirubin CK-MB (CK-2) C-Reactive Protein 8.50 H NT-Pro-B Natriuret Pep Total Protein 5.5 L Albumin 2.8 L Arterial Blood Glucose Urine WBC (Auto) Urine Creatinine 12/01/19 12/02/19 12/02/19 18:04 00:05 05:16 WBC 11.4 H RBC Hgb Hct MCHC RDW 15.9 H MCV MCH Lymph % (Auto) Saunders % (Auto) 9.9 H Saunders # 1.1 H Eos # Lymph # (Auto) Saunders # (Auto) Eos # (Auto) Seg Neutrophils % 70.3 H Seg Neuts % (Manual) Baso # (Auto) Lymphocytes % (Manual) Monocytes % (Manual) Eosinophils % (Manual) Basophils % (Manual) Seg Neutrophils # 8.0 H Seg Neutrophils # Man Lymphocytes # (Manual) Monocytes # (Manual) Eosinophils # (Manual) Nucleated RBC % Basophils # (Manual) PT INR APTT Heparin Anti-Xa Level ABG pH POC ABG pO2 ABG pO2 ABG HCO3 ABG O2 Saturation ABG Base Excess POC ABG pCO2 ABG Hemoglobin ABG Oxyhemoglobin ABG Glucose Oxyhemoglobin Sodium Potassium Chloride Carbon Dioxide BUN Creatinine Glucose POC Glucose 143 H 107 H Lactic Acid Calcium Phosphorus Magnesium AST ALT Lactate Dehydrogenase Total Bilirubin Direct Bilirubin CK-MB (CK-2) C-Reactive Protein NT-Pro-B Natriuret Pep Total Protein Albumin Arterial Blood Glucose Urine WBC (Auto) Urine Creatinine 12/02/19 12/02/19 12/02/19 05:16 06:03 11:52 WBC RBC Hgb Hct MCHC RDW MCV MCH Lymph % (Auto) Saunders % (Auto) Saunders # Eos # Lymph # (Auto) Saunders # (Auto) Eos # (Auto) Seg Neutrophils % Seg Neuts % (Manual) Baso # (Auto) Lymphocytes % (Manual) Monocytes % (Manual) Eosinophils % (Manual) Basophils % (Manual) Seg Neutrophils # Seg Neutrophils # Man Lymphocytes # (Manual) Monocytes # (Manual) Eosinophils # (Manual) Nucleated RBC % Basophils # (Manual) PT INR APTT Heparin Anti-Xa Level ABG pH POC ABG pO2 ABG pO2 ABG HCO3 ABG O2 Saturation ABG Base Excess POC ABG pCO2 ABG Hemoglobin ABG Oxyhemoglobin ABG Glucose Oxyhemoglobin Sodium 146 H Potassium Chloride Carbon Dioxide BUN 28 H Creatinine Glucose 123 H POC Glucose 110 H 152 H Lactic Acid Calcium Phosphorus Magnesium AST ALT Lactate Dehydrogenase Total Bilirubin Direct Bilirubin CK-MB (CK-2) C-Reactive Protein NT-Pro-B Natriuret Pep Total Protein Albumin Arterial Blood Glucose Urine WBC (Auto) Urine Creatinine 12/02/19 12/02/19 12/02/19 12:58 17:58 23:36 WBC RBC Hgb Hct MCHC RDW MCV MCH Lymph % (Auto) Saunders % (Auto) Saunders # Eos # Lymph # (Auto) Saunders # (Auto) Eos # (Auto) Seg Neutrophils % Seg Neuts % (Manual) Baso # (Auto) Lymphocytes % (Manual) Monocytes % (Manual) Eosinophils % (Manual) Basophils % (Manual) Seg Neutrophils # Seg Neutrophils # Man Lymphocytes # (Manual) Monocytes # (Manual) Eosinophils # (Manual) Nucleated RBC % Basophils # (Manual) PT INR APTT Heparin Anti-Xa Level ABG pH POC ABG pO2 78.1 L ABG pO2 ABG HCO3 ABG O2 Saturation ABG Base Excess POC ABG pCO2 ABG Hemoglobin ABG Oxyhemoglobin ABG Glucose Oxyhemoglobin Sodium Potassium Chloride Carbon Dioxide BUN Creatinine Glucose POC Glucose 120 H 123 H Lactic Acid Calcium Phosphorus Magnesium AST ALT Lactate Dehydrogenase Total Bilirubin Direct Bilirubin CK-MB (CK-2) C-Reactive Protein NT-Pro-B Natriuret Pep Total Protein Albumin Arterial Blood Glucose Urine WBC (Auto) Urine Creatinine 12/03/19 12/03/19 12/03/19 06:03 06:14 11:46 WBC RBC Hgb Hct MCHC RDW MCV MCH Lymph % (Auto) Saunders % (Auto) Saunders # Eos # Lymph # (Auto) Saunders # (Auto) Eos # (Auto) Seg Neutrophils % Seg Neuts % (Manual) Baso # (Auto) Lymphocytes % (Manual) Monocytes % (Manual) Eosinophils % (Manual) Basophils % (Manual) Seg Neutrophils # Seg Neutrophils # Man Lymphocytes # (Manual) Monocytes # (Manual) Eosinophils # (Manual) Nucleated RBC % Basophils # (Manual) PT INR APTT Heparin Anti-Xa Level ABG pH POC ABG pO2 ABG pO2 ABG HCO3 ABG O2 Saturation ABG Base Excess POC ABG pCO2 ABG Hemoglobin ABG Oxyhemoglobin ABG Glucose Oxyhemoglobin Sodium Potassium Chloride Carbon Dioxide BUN Creatinine Glucose POC Glucose 142 H 130 H Lactic Acid Calcium Phosphorus Magnesium AST ALT Lactate Dehydrogenase Total Bilirubin Direct Bilirubin CK-MB (CK-2) C-Reactive Protein NT-Pro-B Natriuret Pep Total Protein Albumin Arterial Blood Glucose Urine WBC (Auto) 8.0 H Urine Creatinine 12/03/19 12/03/19 12/04/19 15:50 17:39 00:04 WBC RBC Hgb Hct MCHC RDW MCV MCH Lymph % (Auto) Saunders % (Auto) Saunders # Eos # Lymph # (Auto) Saunders # (Auto) Eos # (Auto) Seg Neutrophils % Seg Neuts % (Manual) Baso # (Auto) Lymphocytes % (Manual) Monocytes % (Manual) Eosinophils % (Manual) Basophils % (Manual) Seg Neutrophils # Seg Neutrophils # Man Lymphocytes # (Manual) Monocytes # (Manual) Eosinophils # (Manual) Nucleated RBC % Basophils # (Manual) PT INR APTT Heparin Anti-Xa Level ABG pH POC ABG pO2 ABG pO2 ABG HCO3 ABG O2 Saturation ABG Base Excess POC ABG pCO2 ABG Hemoglobin ABG Oxyhemoglobin ABG Glucose Oxyhemoglobin Sodium Potassium Chloride Carbon Dioxide BUN Creatinine Glucose POC Glucose 146 H 133 H Lactic Acid Calcium Phosphorus 2.40 L Magnesium AST ALT Lactate Dehydrogenase Total Bilirubin Direct Bilirubin CK-MB (CK-2) C-Reactive Protein NT-Pro-B Natriuret Pep Total Protein Albumin Arterial Blood Glucose Urine WBC (Auto) Urine Creatinine 12/04/19 12/04/19 12/04/19 03:58 03:58 05:22 WBC 12.5 H RBC Hgb 11.2 L Hct 35.2 L MCHC RDW 16.0 H MCV MCH Lymph % (Auto) Saunders % (Auto) 9.6 H Saunders # 1.2 H Eos # 0.5 H Lymph # (Auto) Saunders # (Auto) Eos # (Auto) Seg Neutrophils % Seg Neuts % (Manual) Baso # (Auto) Lymphocytes % (Manual) Monocytes % (Manual) Eosinophils % (Manual) Basophils % (Manual) Seg Neutrophils # 8.6 H Seg Neutrophils # Man Lymphocytes # (Manual) Monocytes # (Manual) Eosinophils # (Manual) Nucleated RBC % Basophils # (Manual) PT INR APTT Heparin Anti-Xa Level ABG pH POC ABG pO2 ABG pO2 ABG HCO3 ABG O2 Saturation ABG Base Excess POC ABG pCO2 ABG Hemoglobin ABG Oxyhemoglobin ABG Glucose Oxyhemoglobin Sodium 146 H Potassium Chloride 108.6 H Carbon Dioxide BUN 30 H Creatinine 0.7 L Glucose 121 H POC Glucose 132 H Lactic Acid Calcium Phosphorus Magnesium AST ALT Lactate Dehydrogenase Total Bilirubin Direct Bilirubin CK-MB (CK-2) C-Reactive Protein NT-Pro-B Natriuret Pep Total Protein Albumin Arterial Blood Glucose Urine WBC (Auto) Urine Creatinine 12/04/19 12/04/19 12/05/19 13:26 18:43 00:19 WBC RBC Hgb Hct MCHC RDW MCV MCH Lymph % (Auto) Saunders % (Auto) Saunders # Eos # Lymph # (Auto) Saunders # (Auto) Eos # (Auto) Seg Neutrophils % Seg Neuts % (Manual) Baso # (Auto) Lymphocytes % (Manual) Monocytes % (Manual) Eosinophils % (Manual) Basophils % (Manual) Seg Neutrophils # Seg Neutrophils # Man Lymphocytes # (Manual) Monocytes # (Manual) Eosinophils # (Manual) Nucleated RBC % Basophils # (Manual) PT INR APTT Heparin Anti-Xa Level ABG pH POC ABG pO2 ABG pO2 ABG HCO3 ABG O2 Saturation ABG Base Excess POC ABG pCO2 ABG Hemoglobin ABG Oxyhemoglobin ABG Glucose Oxyhemoglobin Sodium Potassium Chloride Carbon Dioxide BUN Creatinine Glucose POC Glucose 185 H 156 H 150 H Lactic Acid Calcium Phosphorus Magnesium AST ALT Lactate Dehydrogenase Total Bilirubin Direct Bilirubin CK-MB (CK-2) C-Reactive Protein NT-Pro-B Natriuret Pep Total Protein Albumin Arterial Blood Glucose Urine WBC (Auto) Urine Creatinine 12/05/19 12/05/19 12/05/19 03:37 03:37 05:14 WBC 16.3 H RBC Hgb 11.4 L Hct MCHC RDW 15.6 H MCV MCH Lymph % (Auto) 9.9 L Saunders % (Auto) 9.7 H Saunders # 1.6 H Eos # Lymph # (Auto) Saunders # (Auto) Eos # (Auto) Seg Neutrophils % 78.0 H Seg Neuts % (Manual) Baso # (Auto) Lymphocytes % (Manual) Monocytes % (Manual) Eosinophils % (Manual) Basophils % (Manual) Seg Neutrophils # 12.7 H Seg Neutrophils # Man Lymphocytes # (Manual) Monocytes # (Manual) Eosinophils # (Manual) Nucleated RBC % Basophils # (Manual) PT INR APTT Heparin Anti-Xa Level ABG pH POC ABG pO2 ABG pO2 ABG HCO3 ABG O2 Saturation ABG Base Excess POC ABG pCO2 ABG Hemoglobin ABG Oxyhemoglobin ABG Glucose Oxyhemoglobin Sodium 146 H Potassium Chloride 107.2 H Carbon Dioxide BUN 27 H Creatinine 0.7 L Glucose 171 H POC Glucose 168 H Lactic Acid Calcium Phosphorus Magnesium AST ALT Lactate Dehydrogenase Total Bilirubin Direct Bilirubin CK-MB (CK-2) C-Reactive Protein NT-Pro-B Natriuret Pep Total Protein Albumin Arterial Blood Glucose Urine WBC (Auto) Urine Creatinine 12/05/19 12/05/19 12/05/19 12:31 18:10 23:58 WBC RBC Hgb Hct MCHC RDW MCV MCH Lymph % (Auto) Saunders % (Auto) Saunders # Eos # Lymph # (Auto) Saunders # (Auto) Eos # (Auto) Seg Neutrophils % Seg Neuts % (Manual) Baso # (Auto) Lymphocytes % (Manual) Monocytes % (Manual) Eosinophils % (Manual) Basophils % (Manual) Seg Neutrophils # Seg Neutrophils # Man Lymphocytes # (Manual) Monocytes # (Manual) Eosinophils # (Manual) Nucleated RBC % Basophils # (Manual) PT INR APTT Heparin Anti-Xa Level ABG pH POC ABG pO2 ABG pO2 ABG HCO3 ABG O2 Saturation ABG Base Excess POC ABG pCO2 ABG Hemoglobin ABG Oxyhemoglobin ABG Glucose Oxyhemoglobin Sodium Potassium Chloride Carbon Dioxide BUN Creatinine Glucose POC Glucose 159 H 198 H 115 H Lactic Acid Calcium Phosphorus Magnesium AST ALT Lactate Dehydrogenase Total Bilirubin Direct Bilirubin CK-MB (CK-2) C-Reactive Protein NT-Pro-B Natriuret Pep Total Protein Albumin Arterial Blood Glucose Urine WBC (Auto) Urine Creatinine 12/06/19 12/06/19 12/06/19 05:24 05:24 05:25 WBC 14.9 H RBC Hgb 10.8 L Hct 34.0 L MCHC RDW 15.6 H MCV MCH Lymph % (Auto) 10.7 L Saunders % (Auto) 8.3 H Saunders # 1.2 H Eos # Lymph # (Auto) Saunders # (Auto) Eos # (Auto) Seg Neutrophils % 78.7 H Seg Neuts % (Manual) Baso # (Auto) Lymphocytes % (Manual) Monocytes % (Manual) Eosinophils % (Manual) Basophils % (Manual) Seg Neutrophils # 11.7 H Seg Neutrophils # Man Lymphocytes # (Manual) Monocytes # (Manual) Eosinophils # (Manual) Nucleated RBC % Basophils # (Manual) PT INR APTT Heparin Anti-Xa Level ABG pH POC ABG pO2 ABG pO2 ABG HCO3 ABG O2 Saturation ABG Base Excess POC ABG pCO2 ABG Hemoglobin ABG Oxyhemoglobin ABG Glucose Oxyhemoglobin Sodium 148 H Potassium 5.1 H Chloride 107.6 H Carbon Dioxide BUN 27 H Creatinine 0.7 L Glucose 155 H POC Glucose 157 H Lactic Acid Calcium Phosphorus Magnesium AST ALT Lactate Dehydrogenase Total Bilirubin Direct Bilirubin CK-MB (CK-2) C-Reactive Protein NT-Pro-B Natriuret Pep Total Protein Albumin Arterial Blood Glucose Urine WBC (Auto) Urine Creatinine 12/07/19 12/07/19 12/07/19 00:13 05:34 11:33 WBC RBC Hgb Hct MCHC RDW MCV MCH Lymph % (Auto) Saunders % (Auto) Saunders # Eos # Lymph # (Auto) Saunders # (Auto) Eos # (Auto) Seg Neutrophils % Seg Neuts % (Manual) Baso # (Auto) Lymphocytes % (Manual) Monocytes % (Manual) Eosinophils % (Manual) Basophils % (Manual) Seg Neutrophils # Seg Neutrophils # Man Lymphocytes # (Manual) Monocytes # (Manual) Eosinophils # (Manual) Nucleated RBC % Basophils # (Manual) PT INR APTT Heparin Anti-Xa Level ABG pH POC ABG pO2 ABG pO2 ABG HCO3 ABG O2 Saturation ABG Base Excess POC ABG pCO2 ABG Hemoglobin ABG Oxyhemoglobin ABG Glucose Oxyhemoglobin Sodium Potassium Chloride Carbon Dioxide BUN Creatinine Glucose POC Glucose 142 H 111 H 169 H Lactic Acid Calcium Phosphorus Magnesium AST ALT Lactate Dehydrogenase Total Bilirubin Direct Bilirubin CK-MB (CK-2) C-Reactive Protein NT-Pro-B Natriuret Pep Total Protein Albumin Arterial Blood Glucose Urine WBC (Auto) Urine Creatinine 12/07/19 12/07/19 12/07/19 12:41 13:25 18:19 WBC 12.4 H RBC 3.53 L Hgb 10.2 L Hct 32.1 L MCHC RDW 15.3 H MCV MCH Lymph % (Auto) 10.6 L Saunders % (Auto) 7.8 H Saunders # 1.0 H Eos # Lymph # (Auto) Saunders # (Auto) Eos # (Auto) Seg Neutrophils % 77.6 H Seg Neuts % (Manual) Baso # (Auto) Lymphocytes % (Manual) Monocytes % (Manual) Eosinophils % (Manual) Basophils % (Manual) Seg Neutrophils # 9.6 H Seg Neutrophils # Man Lymphocytes # (Manual) Monocytes # (Manual) Eosinophils # (Manual) Nucleated RBC % Basophils # (Manual) PT INR APTT Heparin Anti-Xa Level ABG pH POC ABG pO2 ABG pO2 ABG HCO3 ABG O2 Saturation ABG Base Excess POC ABG pCO2 ABG Hemoglobin ABG Oxyhemoglobin ABG Glucose Oxyhemoglobin Sodium 149 H Potassium Chloride 108.4 H Carbon Dioxide BUN 26 H Creatinine 0.6 L Glucose 149 H POC Glucose 164 H Lactic Acid Calcium Phosphorus Magnesium 2.60 H AST 121 H ALT 145 H Lactate Dehydrogenase Total Bilirubin Direct Bilirubin CK-MB (CK-2) C-Reactive Protein NT-Pro-B Natriuret Pep Total Protein Albumin 2.6 L Arterial Blood Glucose Urine WBC (Auto) Urine Creatinine 12/07/19 12/08/19 12/08/19 22:25 00:02 03:55 WBC 13.3 H RBC 3.40 L Hgb 9.7 L Hct 30.8 L MCHC 31 L RDW 15.5 H MCV MCH Lymph % (Auto) Saunders % (Auto) 8.1 H Saunders # 1.1 H Eos # Lymph # (Auto) Saunders # (Auto) Eos # (Auto) Seg Neutrophils % 73.0 H Seg Neuts % (Manual) Baso # (Auto) Lymphocytes % (Manual) Monocytes % (Manual) Eosinophils % (Manual) Basophils % (Manual) Seg Neutrophils # 9.7 H Seg Neutrophils # Man Lymphocytes # (Manual) Monocytes # (Manual) Eosinophils # (Manual) Nucleated RBC % Basophils # (Manual) PT INR APTT Heparin Anti-Xa Level 0.12 L ABG pH POC ABG pO2 ABG pO2 ABG HCO3 ABG O2 Saturation ABG Base Excess POC ABG pCO2 ABG Hemoglobin ABG Oxyhemoglobin ABG Glucose Oxyhemoglobin Sodium Potassium Chloride Carbon Dioxide BUN Creatinine Glucose POC Glucose 151 H Lactic Acid Calcium Phosphorus Magnesium AST ALT Lactate Dehydrogenase Total Bilirubin Direct Bilirubin CK-MB (CK-2) C-Reactive Protein NT-Pro-B Natriuret Pep Total Protein Albumin Arterial Blood Glucose Urine WBC (Auto) Urine Creatinine 12/08/19 12/08/19 12/08/19 03:55 05:21 06:01 WBC RBC Hgb Hct MCHC RDW MCV MCH Lymph % (Auto) Saunders % (Auto) Saunders # Eos # Lymph # (Auto) Saunders # (Auto) Eos # (Auto) Seg Neutrophils % Seg Neuts % (Manual) Baso # (Auto) Lymphocytes % (Manual) Monocytes % (Manual) Eosinophils % (Manual) Basophils % (Manual) Seg Neutrophils # Seg Neutrophils # Man Lymphocytes # (Manual) Monocytes # (Manual) Eosinophils # (Manual) Nucleated RBC % Basophils # (Manual) PT INR APTT Heparin Anti-Xa Level 0.20 L ABG pH POC ABG pO2 ABG pO2 ABG HCO3 ABG O2 Saturation ABG Base Excess POC ABG pCO2 ABG Hemoglobin ABG Oxyhemoglobin ABG Glucose Oxyhemoglobin Sodium 149 H Potassium Chloride 108.0 H Carbon Dioxide BUN 28 H Creatinine 0.6 L Glucose 144 H POC Glucose 143 H Lactic Acid Calcium Phosphorus Magnesium AST 98 H ALT 145 H Lactate Dehydrogenase Total Bilirubin Direct Bilirubin CK-MB (CK-2) C-Reactive Protein NT-Pro-B Natriuret Pep Total Protein 6.0 L Albumin 2.4 L Arterial Blood Glucose Urine WBC (Auto) Urine Creatinine 12/08/19 12/08/19 12/08/19 12:08 18:11 23:53 WBC RBC Hgb Hct MCHC RDW MCV MCH Lymph % (Auto) Saunders % (Auto) Saunders # Eos # Lymph # (Auto) Saunders # (Auto) Eos # (Auto) Seg Neutrophils % Seg Neuts % (Manual) Baso # (Auto) Lymphocytes % (Manual) Monocytes % (Manual) Eosinophils % (Manual) Basophils % (Manual) Seg Neutrophils # Seg Neutrophils # Man Lymphocytes # (Manual) Monocytes # (Manual) Eosinophils # (Manual) Nucleated RBC % Basophils # (Manual) PT INR APTT Heparin Anti-Xa Level ABG pH POC ABG pO2 ABG pO2 ABG HCO3 ABG O2 Saturation ABG Base Excess POC ABG pCO2 ABG Hemoglobin ABG Oxyhemoglobin ABG Glucose Oxyhemoglobin Sodium Potassium Chloride Carbon Dioxide BUN Creatinine Glucose POC Glucose 172 H 122 H 162 H Lactic Acid Calcium Phosphorus Magnesium AST ALT Lactate Dehydrogenase Total Bilirubin Direct Bilirubin CK-MB (CK-2) C-Reactive Protein NT-Pro-B Natriuret Pep Total Protein Albumin Arterial Blood Glucose Urine WBC (Auto) Urine Creatinine 12/09/19 12/09/19 12/09/19 04:03 04:03 05:53 WBC RBC Hgb 9.1 L Hct 28.9 L MCHC RDW MCV MCH Lymph % (Auto) Saunders % (Auto) Saunders # Eos # Lymph # (Auto) Saunders # (Auto) Eos # (Auto) Seg Neutrophils % Seg Neuts % (Manual) Baso # (Auto) Lymphocytes % (Manual) Monocytes % (Manual) Eosinophils % (Manual) Basophils % (Manual) Seg Neutrophils # Seg Neutrophils # Man Lymphocytes # (Manual) Monocytes # (Manual) Eosinophils # (Manual) Nucleated RBC % Basophils # (Manual) PT INR APTT Heparin Anti-Xa Level 0.15 L ABG pH POC ABG pO2 ABG pO2 ABG HCO3 ABG O2 Saturation ABG Base Excess POC ABG pCO2 ABG Hemoglobin ABG Oxyhemoglobin ABG Glucose Oxyhemoglobin Sodium Potassium Chloride Carbon Dioxide BUN Creatinine Glucose POC Glucose 124 H Lactic Acid Calcium Phosphorus Magnesium AST ALT Lactate Dehydrogenase Total Bilirubin Direct Bilirubin CK-MB (CK-2) C-Reactive Protein NT-Pro-B Natriuret Pep Total Protein Albumin Arterial Blood Glucose Urine WBC (Auto) Urine Creatinine 12/09/19 12/09/19 12/10/19 09:43 12:41 00:13 WBC RBC Hgb Hct MCHC RDW MCV MCH Lymph % (Auto) Saunders % (Auto) Saunders # Eos # Lymph # (Auto) Saunders # (Auto) Eos # (Auto) Seg Neutrophils % Seg Neuts % (Manual) Baso # (Auto) Lymphocytes % (Manual) Monocytes % (Manual) Eosinophils % (Manual) Basophils % (Manual) Seg Neutrophils # Seg Neutrophils # Man Lymphocytes # (Manual) Monocytes # (Manual) Eosinophils # (Manual) Nucleated RBC % Basophils # (Manual) PT INR APTT Heparin Anti-Xa Level ABG pH POC ABG pO2 ABG pO2 ABG HCO3 ABG O2 Saturation ABG Base Excess POC ABG pCO2 ABG Hemoglobin ABG Oxyhemoglobin ABG Glucose Oxyhemoglobin Sodium Potassium Chloride Carbon Dioxide BUN 25 H Creatinine 0.6 L Glucose 131 H POC Glucose 109 H 120 H Lactic Acid Calcium Phosphorus Magnesium AST ALT Lactate Dehydrogenase Total Bilirubin Direct Bilirubin CK-MB (CK-2) C-Reactive Protein NT-Pro-B Natriuret Pep Total Protein Albumin Arterial Blood Glucose Urine WBC (Auto) Urine Creatinine 12/10/19 12/10/19 12/10/19 04:14 04:14 12:00 WBC 13.3 H RBC 3.34 L Hgb 9.6 L Hct 30.4 L MCHC RDW 15.4 H MCV MCH Lymph % (Auto) Saunders % (Auto) Saunders # Eos # Lymph # (Auto) Saunders # (Auto) Eos # (Auto) Seg Neutrophils % Seg Neuts % (Manual) 75.0 H Baso # (Auto) Lymphocytes % (Manual) 13.0 L Monocytes % (Manual) 8.0 H Eosinophils % (Manual) Basophils % (Manual) 2.0 H Seg Neutrophils # Seg Neutrophils # Man 10.0 H Lymphocytes # (Manual) Monocytes # (Manual) 1.1 H Eosinophils # (Manual) Nucleated RBC % Basophils # (Manual) 0.3 H PT INR APTT Heparin Anti-Xa Level ABG pH POC ABG pO2 ABG pO2 ABG HCO3 ABG O2 Saturation ABG Base Excess POC ABG pCO2 ABG Hemoglobin ABG Oxyhemoglobin ABG Glucose Oxyhemoglobin Sodium 147 H Potassium Chloride 108.3 H Carbon Dioxide BUN 21 H Creatinine 0.6 L Glucose 104 H POC Glucose 133 H Lactic Acid Calcium Phosphorus Magnesium AST ALT Lactate Dehydrogenase Total Bilirubin Direct Bilirubin CK-MB (CK-2) C-Reactive Protein NT-Pro-B Natriuret Pep Total Protein Albumin Arterial Blood Glucose Urine WBC (Auto) Urine Creatinine 12/10/19 12/10/19 12/11/19 18:44 21:20 00:08 WBC 14.9 H RBC 3.36 L Hgb 9.6 L Hct 30.5 L MCHC RDW 15.4 H MCV MCH Lymph % (Auto) Saunders % (Auto) Saunders # Eos # Lymph # (Auto) Saunders # (Auto) Eos # (Auto) Seg Neutrophils % Seg Neuts % (Manual) Baso # (Auto) Lymphocytes % (Manual) Monocytes % (Manual) Eosinophils % (Manual) Basophils % (Manual) Seg Neutrophils # Seg Neutrophils # Man Lymphocytes # (Manual) Monocytes # (Manual) Eosinophils # (Manual) Nucleated RBC % Basophils # (Manual) PT INR APTT Heparin Anti-Xa Level ABG pH POC ABG pO2 ABG pO2 ABG HCO3 ABG O2 Saturation ABG Base Excess POC ABG pCO2 ABG Hemoglobin ABG Oxyhemoglobin ABG Glucose Oxyhemoglobin Sodium Potassium Chloride Carbon Dioxide BUN Creatinine Glucose POC Glucose 119 H 134 H Lactic Acid Calcium Phosphorus Magnesium AST ALT Lactate Dehydrogenase Total Bilirubin Direct Bilirubin CK-MB (CK-2) C-Reactive Protein NT-Pro-B Natriuret Pep Total Protein Albumin Arterial Blood Glucose Urine WBC (Auto) Urine Creatinine 12/11/19 12/11/19 12/11/19 03:54 07:28 08:36 WBC 11.9 H RBC 3.25 L Hgb 9.6 L Hct 29.2 L MCHC RDW 15.7 H MCV MCH Lymph % (Auto) Saunders % (Auto) Saunders # Eos # Lymph # (Auto) Saunders # (Auto) Eos # (Auto) Seg Neutrophils % Seg Neuts % (Manual) Baso # (Auto) Lymphocytes % (Manual) Monocytes % (Manual) Eosinophils % (Manual) Basophils % (Manual) Seg Neutrophils # Seg Neutrophils # Man Lymphocytes # (Manual) Monocytes # (Manual) Eosinophils # (Manual) Nucleated RBC % Basophils # (Manual) PT INR APTT Heparin Anti-Xa Level 0.10 L 0.16 L ABG pH POC ABG pO2 ABG pO2 ABG HCO3 ABG O2 Saturation ABG Base Excess POC ABG pCO2 ABG Hemoglobin ABG Oxyhemoglobin ABG Glucose Oxyhemoglobin Sodium Potassium Chloride Carbon Dioxide BUN Creatinine Glucose POC Glucose Lactic Acid Calcium Phosphorus Magnesium AST ALT Lactate Dehydrogenase Total Bilirubin Direct Bilirubin CK-MB (CK-2) C-Reactive Protein NT-Pro-B Natriuret Pep Total Protein Albumin Arterial Blood Glucose Urine WBC (Auto) Urine Creatinine 12/11/19 12/11/19 12/11/19 08:36 11:45 17:15 WBC RBC Hgb Hct MCHC RDW MCV MCH Lymph % (Auto) Saunders % (Auto) Saunders # Eos # Lymph # (Auto) Saunders # (Auto) Eos # (Auto) Seg Neutrophils % Seg Neuts % (Manual) Baso # (Auto) Lymphocytes % (Manual) Monocytes % (Manual) Eosinophils % (Manual) Basophils % (Manual) Seg Neutrophils # Seg Neutrophils # Man Lymphocytes # (Manual) Monocytes # (Manual) Eosinophils # (Manual) Nucleated RBC % Basophils # (Manual) PT INR APTT Heparin Anti-Xa Level ABG pH POC ABG pO2 ABG pO2 ABG HCO3 ABG O2 Saturation ABG Base Excess POC ABG pCO2 ABG Hemoglobin ABG Oxyhemoglobin ABG Glucose Oxyhemoglobin Sodium Potassium Chloride Carbon Dioxide BUN Creatinine 0.5 L Glucose 128 H POC Glucose 136 H 109 H Lactic Acid Calcium Phosphorus Magnesium AST ALT Lactate Dehydrogenase Total Bilirubin Direct Bilirubin CK-MB (CK-2) C-Reactive Protein NT-Pro-B Natriuret Pep Total Protein Albumin Arterial Blood Glucose Urine WBC (Auto) Urine Creatinine 12/12/19 12/12/19 12/12/19 00:03 05:53 05:53 WBC RBC Hgb 8.8 L Hct 27.6 L MCHC RDW MCV MCH Lymph % (Auto) Saunders % (Auto) Saunders # Eos # Lymph # (Auto) Saunders # (Auto) Eos # (Auto) Seg Neutrophils % Seg Neuts % (Manual) Baso # (Auto) Lymphocytes % (Manual) Monocytes % (Manual) Eosinophils % (Manual) Basophils % (Manual) Seg Neutrophils # Seg Neutrophils # Man Lymphocytes # (Manual) Monocytes # (Manual) Eosinophils # (Manual) Nucleated RBC % Basophils # (Manual) PT INR APTT Heparin Anti-Xa Level 0.22 L ABG pH POC ABG pO2 ABG pO2 ABG HCO3 ABG O2 Saturation ABG Base Excess POC ABG pCO2 ABG Hemoglobin ABG Oxyhemoglobin ABG Glucose Oxyhemoglobin Sodium Potassium Chloride Carbon Dioxide BUN Creatinine Glucose POC Glucose 116 H Lactic Acid Calcium Phosphorus Magnesium AST ALT Lactate Dehydrogenase Total Bilirubin Direct Bilirubin CK-MB (CK-2) C-Reactive Protein NT-Pro-B Natriuret Pep Total Protein Albumin Arterial Blood Glucose Urine WBC (Auto) Urine Creatinine 12/12/19 12/12/19 12/12/19 09:38 12:18 17:44 WBC RBC Hgb Hct MCHC RDW MCV MCH Lymph % (Auto) Saunders % (Auto) Saunders # Eos # Lymph # (Auto) Saunders # (Auto) Eos # (Auto) Seg Neutrophils % Seg Neuts % (Manual) Baso # (Auto) Lymphocytes % (Manual) Monocytes % (Manual) Eosinophils % (Manual) Basophils % (Manual) Seg Neutrophils # Seg Neutrophils # Man Lymphocytes # (Manual) Monocytes # (Manual) Eosinophils # (Manual) Nucleated RBC % Basophils # (Manual) PT INR APTT Heparin Anti-Xa Level ABG pH POC ABG pO2 ABG pO2 ABG HCO3 ABG O2 Saturation ABG Base Excess POC ABG pCO2 ABG Hemoglobin ABG Oxyhemoglobin ABG Glucose Oxyhemoglobin Sodium Potassium Chloride Carbon Dioxide BUN Creatinine Glucose POC Glucose 115 H 146 H 146 H Lactic Acid Calcium Phosphorus Magnesium AST ALT Lactate Dehydrogenase Total Bilirubin Direct Bilirubin CK-MB (CK-2) C-Reactive Protein NT-Pro-B Natriuret Pep Total Protein Albumin Arterial Blood Glucose Urine WBC (Auto) Urine Creatinine 12/12/19 12/13/19 12/13/19 23:33 05:32 05:32 WBC 13.1 H RBC 3.27 L Hgb 9.5 L Hct 29.3 L MCHC RDW 15.6 H MCV MCH Lymph % (Auto) Saunders % (Auto) Saunders # Eos # Lymph # (Auto) Saunders # (Auto) Eos # (Auto) Seg Neutrophils % Seg Neuts % (Manual) 74.0 H Baso # (Auto) Lymphocytes % (Manual) 8.0 L Monocytes % (Manual) 9.0 H Eosinophils % (Manual) 5.0 H Basophils % (Manual) Seg Neutrophils # Seg Neutrophils # Man 9.7 H Lymphocytes # (Manual) 1.0 L Monocytes # (Manual) 1.2 H Eosinophils # (Manual) 0.7 H Nucleated RBC % Basophils # (Manual) PT INR APTT Heparin Anti-Xa Level 0.20 L ABG pH POC ABG pO2 ABG pO2 ABG HCO3 ABG O2 Saturation ABG Base Excess POC ABG pCO2 ABG Hemoglobin ABG Oxyhemoglobin ABG Glucose Oxyhemoglobin Sodium Potassium Chloride Carbon Dioxide BUN Creatinine Glucose POC Glucose 126 H Lactic Acid Calcium Phosphorus Magnesium AST ALT Lactate Dehydrogenase Total Bilirubin Direct Bilirubin CK-MB (CK-2) C-Reactive Protein NT-Pro-B Natriuret Pep Total Protein Albumin Arterial Blood Glucose Urine WBC (Auto) Urine Creatinine 12/13/19 12/13/19 12/13/19 05:32 05:46 11:57 WBC RBC Hgb Hct MCHC RDW MCV MCH Lymph % (Auto) Saunders % (Auto) Saunders # Eos # Lymph # (Auto) Saunders # (Auto) Eos # (Auto) Seg Neutrophils % Seg Neuts % (Manual) Baso # (Auto) Lymphocytes % (Manual) Monocytes % (Manual) Eosinophils % (Manual) Basophils % (Manual) Seg Neutrophils # Seg Neutrophils # Man Lymphocytes # (Manual) Monocytes # (Manual) Eosinophils # (Manual) Nucleated RBC % Basophils # (Manual) PT INR APTT Heparin Anti-Xa Level ABG pH POC ABG pO2 ABG pO2 ABG HCO3 ABG O2 Saturation ABG Base Excess POC ABG pCO2 ABG Hemoglobin ABG Oxyhemoglobin ABG Glucose Oxyhemoglobin Sodium Potassium Chloride Carbon Dioxide 31 H BUN Creatinine 0.6 L Glucose 114 H POC Glucose 118 H 133 H Lactic Acid Calcium Phosphorus Magnesium AST ALT Lactate Dehydrogenase Total Bilirubin Direct Bilirubin CK-MB (CK-2) C-Reactive Protein NT-Pro-B Natriuret Pep Total Protein Albumin Arterial Blood Glucose Urine WBC (Auto) Urine Creatinine 12/13/19 12/13/19 12/14/19 17:44 23:46 05:32 WBC RBC Hgb Hct MCHC RDW MCV MCH Lymph % (Auto) Saunders % (Auto) Saunders # Eos # Lymph # (Auto) Saunders # (Auto) Eos # (Auto) Seg Neutrophils % Seg Neuts % (Manual) Baso # (Auto) Lymphocytes % (Manual) Monocytes % (Manual) Eosinophils % (Manual) Basophils % (Manual) Seg Neutrophils # Seg Neutrophils # Man Lymphocytes # (Manual) Monocytes # (Manual) Eosinophils # (Manual) Nucleated RBC % Basophils # (Manual) PT INR APTT Heparin Anti-Xa Level ABG pH POC ABG pO2 ABG pO2 ABG HCO3 ABG O2 Saturation ABG Base Excess POC ABG pCO2 ABG Hemoglobin ABG Oxyhemoglobin ABG Glucose Oxyhemoglobin Sodium Potassium Chloride Carbon Dioxide BUN Creatinine Glucose POC Glucose 161 H 126 H 139 H Lactic Acid Calcium Phosphorus Magnesium AST ALT Lactate Dehydrogenase Total Bilirubin Direct Bilirubin CK-MB (CK-2) C-Reactive Protein NT-Pro-B Natriuret Pep Total Protein Albumin Arterial Blood Glucose Urine WBC (Auto) Urine Creatinine 12/14/19 12/14/19 12/14/19 06:03 06:03 09:37 WBC RBC Hgb 9.6 L Hct 30.4 L MCHC RDW MCV MCH Lymph % (Auto) Saunders % (Auto) Saunders # Eos # Lymph # (Auto) Saunders # (Auto) Eos # (Auto) Seg Neutrophils % Seg Neuts % (Manual) Baso # (Auto) Lymphocytes % (Manual) Monocytes % (Manual) Eosinophils % (Manual) Basophils % (Manual) Seg Neutrophils # Seg Neutrophils # Man Lymphocytes # (Manual) Monocytes # (Manual) Eosinophils # (Manual) Nucleated RBC % Basophils # (Manual) PT INR APTT Heparin Anti-Xa Level 0.24 L ABG pH POC ABG pO2 ABG pO2 ABG HCO3 ABG O2 Saturation ABG Base Excess POC ABG pCO2 ABG Hemoglobin ABG Oxyhemoglobin ABG Glucose Oxyhemoglobin Sodium Potassium Chloride Carbon Dioxide BUN Creatinine 0.6 L Glucose 162 H POC Glucose Lactic Acid Calcium Phosphorus Magnesium AST 71 H ALT 118 H Lactate Dehydrogenase Total Bilirubin Direct Bilirubin CK-MB (CK-2) C-Reactive Protein NT-Pro-B Natriuret Pep Total Protein 6.2 L Albumin 2.3 L Arterial Blood Glucose Urine WBC (Auto) Urine Creatinine 12/14/19 12/14/19 12/15/19 12:06 18:18 00:19 WBC RBC Hgb Hct MCHC RDW MCV MCH Lymph % (Auto) Saunders % (Auto) Saunders # Eos # Lymph # (Auto) Saunders # (Auto) Eos # (Auto) Seg Neutrophils % Seg Neuts % (Manual) Baso # (Auto) Lymphocytes % (Manual) Monocytes % (Manual) Eosinophils % (Manual) Basophils % (Manual) Seg Neutrophils # Seg Neutrophils # Man Lymphocytes # (Manual) Monocytes # (Manual) Eosinophils # (Manual) Nucleated RBC % Basophils # (Manual) PT INR APTT Heparin Anti-Xa Level ABG pH POC ABG pO2 ABG pO2 ABG HCO3 ABG O2 Saturation ABG Base Excess POC ABG pCO2 ABG Hemoglobin ABG Oxyhemoglobin ABG Glucose Oxyhemoglobin Sodium Potassium Chloride Carbon Dioxide BUN Creatinine Glucose POC Glucose 147 H 166 H 123 H Lactic Acid Calcium Phosphorus Magnesium AST ALT Lactate Dehydrogenase Total Bilirubin Direct Bilirubin CK-MB (CK-2) C-Reactive Protein NT-Pro-B Natriuret Pep Total Protein Albumin Arterial Blood Glucose Urine WBC (Auto) Urine Creatinine 12/15/19 12/15/19 12/15/19 05:28 05:29 05:29 WBC 14.9 H RBC 3.19 L Hgb 9.1 L Hct 28.7 L MCHC RDW 16.0 H MCV MCH Lymph % (Auto) Saunders % (Auto) Saunders # Eos # Lymph # (Auto) Saunders # (Auto) Eos # (Auto) Seg Neutrophils % Seg Neuts % (Manual) Baso # (Auto) Lymphocytes % (Manual) Monocytes % (Manual) Eosinophils % (Manual) Basophils % (Manual) Seg Neutrophils # Seg Neutrophils # Man Lymphocytes # (Manual) Monocytes # (Manual) Eosinophils # (Manual) Nucleated RBC % Basophils # (Manual) PT INR APTT Heparin Anti-Xa Level 0.19 L ABG pH POC ABG pO2 ABG pO2 ABG HCO3 ABG O2 Saturation ABG Base Excess POC ABG pCO2 ABG Hemoglobin ABG Oxyhemoglobin ABG Glucose Oxyhemoglobin Sodium Potassium Chloride Carbon Dioxide BUN Creatinine 0.6 L Glucose 110 H POC Glucose Lactic Acid Calcium Phosphorus Magnesium AST ALT Lactate Dehydrogenase Total Bilirubin Direct Bilirubin CK-MB (CK-2) C-Reactive Protein NT-Pro-B Natriuret Pep Total Protein Albumin Arterial Blood Glucose Urine WBC (Auto) Urine Creatinine 12/15/19 12/15/1920 05:53 11:50 17:26 WBC RBC Hgb Hct MCHC RDW MCV MCH Lymph % (Auto) Saunders % (Auto) Saunders # Eos # Lymph # (Auto) Saunders # (Auto) Eos # (Auto) Seg Neutrophils % Seg Neuts % (Manual) Baso # (Auto) Lymphocytes % (Manual) Monocytes % (Manual) Eosinophils % (Manual) Basophils % (Manual) Seg Neutrophils # Seg Neutrophils # Man Lymphocytes # (Manual) Monocytes # (Manual) Eosinophils # (Manual) Nucleated RBC % Basophils # (Manual) PT INR APTT Heparin Anti-Xa Level ABG pH POC ABG pO2 ABG pO2 ABG HCO3 ABG O2 Saturation ABG Base Excess POC ABG pCO2 ABG Hemoglobin ABG Oxyhemoglobin ABG Glucose Oxyhemoglobin Sodium Potassium Chloride Carbon Dioxide BUN Creatinine Glucose POC Glucose 119 H 132 H 128 H Lactic Acid Calcium Phosphorus Magnesium AST ALT Lactate Dehydrogenase Total Bilirubin Direct Bilirubin CK-MB (CK-2) C-Reactive Protein NT-Pro-B Natriuret Pep Total Protein Albumin Arterial Blood Glucose Urine WBC (Auto) Urine Creatinine 12/15/19 12/16/19 12/16/19 23:11 05:30 05:46 WBC RBC Hgb 8.8 L Hct 27.9 L MCHC RDW MCV MCH Lymph % (Auto) Saunders % (Auto) Saunders # Eos # Lymph # (Auto) Saunders # (Auto) Eos # (Auto) Seg Neutrophils % Seg Neuts % (Manual) Baso # (Auto) Lymphocytes % (Manual) Monocytes % (Manual) Eosinophils % (Manual) Basophils % (Manual) Seg Neutrophils # Seg Neutrophils # Man Lymphocytes # (Manual) Monocytes # (Manual) Eosinophils # (Manual) Nucleated RBC % Basophils # (Manual) PT INR APTT Heparin Anti-Xa Level ABG pH POC ABG pO2 ABG pO2 ABG HCO3 ABG O2 Saturation ABG Base Excess POC ABG pCO2 ABG Hemoglobin ABG Oxyhemoglobin ABG Glucose Oxyhemoglobin Sodium Potassium Chloride Carbon Dioxide BUN Creatinine Glucose POC Glucose 150 H 134 H Lactic Acid Calcium Phosphorus Magnesium AST ALT Lactate Dehydrogenase Total Bilirubin Direct Bilirubin CK-MB (CK-2) C-Reactive Protein NT-Pro-B Natriuret Pep Total Protein Albumin Arterial Blood Glucose Urine WBC (Auto) Urine Creatinine 12/16/19 12/16/19 12/16/19 05:46 05:46 11:44 WBC RBC Hgb Hct MCHC RDW MCV MCH Lymph % (Auto) Saunders % (Auto) Saunders # Eos # Lymph # (Auto) Saunders # (Auto) Eos # (Auto) Seg Neutrophils % Seg Neuts % (Manual) Baso # (Auto) Lymphocytes % (Manual) Monocytes % (Manual) Eosinophils % (Manual) Basophils % (Manual) Seg Neutrophils # Seg Neutrophils # Man Lymphocytes # (Manual) Monocytes # (Manual) Eosinophils # (Manual) Nucleated RBC % Basophils # (Manual) PT INR APTT Heparin Anti-Xa Level 0.20 L ABG pH POC ABG pO2 ABG pO2 ABG HCO3 ABG O2 Saturation ABG Base Excess POC ABG pCO2 ABG Hemoglobin ABG Oxyhemoglobin ABG Glucose Oxyhemoglobin Sodium Potassium Chloride Carbon Dioxide 31 H BUN Creatinine 0.5 L Glucose 147 H POC Glucose 164 H Lactic Acid Calcium Phosphorus Magnesium AST ALT Lactate Dehydrogenase Total Bilirubin Direct Bilirubin CK-MB (CK-2) C-Reactive Protein NT-Pro-B Natriuret Pep Total Protein Albumin Arterial Blood Glucose Urine WBC (Auto) Urine Creatinine 12/16/19 12/16/19 12/17/19 17:17 23:49 05:30 WBC 13.9 H RBC 3.27 L Hgb 9.4 L Hct 29.2 L MCHC RDW 16.0 H MCV MCH Lymph % (Auto) Saunders % (Auto) 8.8 H Saunders # Eos # Lymph # (Auto) Saunders # (Auto) 1.2 H Eos # (Auto) 0.5 H Seg Neutrophils % 70.5 H Seg Neuts % (Manual) Baso # (Auto) 0.2 H Lymphocytes % (Manual) Monocytes % (Manual) Eosinophils % (Manual) Basophils % (Manual) Seg Neutrophils # 9.8 H Seg Neutrophils # Man Lymphocytes # (Manual) Monocytes # (Manual) Eosinophils # (Manual) Nucleated RBC % Basophils # (Manual) PT INR APTT Heparin Anti-Xa Level ABG pH POC ABG pO2 ABG pO2 ABG HCO3 ABG O2 Saturation ABG Base Excess POC ABG pCO2 ABG Hemoglobin ABG Oxyhemoglobin ABG Glucose Oxyhemoglobin Sodium Potassium Chloride Carbon Dioxide BUN Creatinine Glucose POC Glucose 162 H 144 H Lactic Acid Calcium Phosphorus Magnesium AST ALT Lactate Dehydrogenase Total Bilirubin Direct Bilirubin CK-MB (CK-2) C-Reactive Protein NT-Pro-B Natriuret Pep Total Protein Albumin Arterial Blood Glucose Urine WBC (Auto) Urine Creatinine 12/17/19 12/17/19 12/17/19 05:30 06:06 11:50 WBC RBC Hgb Hct MCHC RDW MCV MCH Lymph % (Auto) Saunders % (Auto) Saunders # Eos # Lymph # (Auto) Saunders # (Auto) Eos # (Auto) Seg Neutrophils % Seg Neuts % (Manual) Baso # (Auto) Lymphocytes % (Manual) Monocytes % (Manual) Eosinophils % (Manual) Basophils % (Manual) Seg Neutrophils # Seg Neutrophils # Man Lymphocytes # (Manual) Monocytes # (Manual) Eosinophils # (Manual) Nucleated RBC % Basophils # (Manual) PT INR APTT Heparin Anti-Xa Level ABG pH POC ABG pO2 ABG pO2 ABG HCO3 ABG O2 Saturation ABG Base Excess POC ABG pCO2 ABG Hemoglobin ABG Oxyhemoglobin ABG Glucose Oxyhemoglobin Sodium Potassium Chloride 97.4 L Carbon Dioxide 32 H BUN Creatinine 0.5 L Glucose 135 H POC Glucose 151 H 140 H Lactic Acid Calcium Phosphorus Magnesium AST ALT Lactate Dehydrogenase Total Bilirubin Direct Bilirubin CK-MB (CK-2) C-Reactive Protein NT-Pro-B Natriuret Pep Total Protein Albumin Arterial Blood Glucose Urine WBC (Auto) Urine Creatinine 12/17/19 12/17/19 12/18/19 17:50 23:46 05:17 WBC RBC Hgb 8.8 L Hct 28.0 L MCHC RDW MCV MCH Lymph % (Auto) Saunders % (Auto) Saunders # Eos # Lymph # (Auto) Saunders # (Auto) Eos # (Auto) Seg Neutrophils % Seg Neuts % (Manual) Baso # (Auto) Lymphocytes % (Manual) Monocytes % (Manual) Eosinophils % (Manual) Basophils % (Manual) Seg Neutrophils # Seg Neutrophils # Man Lymphocytes # (Manual) Monocytes # (Manual) Eosinophils # (Manual) Nucleated RBC % Basophils # (Manual) PT INR APTT Heparin Anti-Xa Level ABG pH POC ABG pO2 ABG pO2 ABG HCO3 ABG O2 Saturation ABG Base Excess POC ABG pCO2 ABG Hemoglobin ABG Oxyhemoglobin ABG Glucose Oxyhemoglobin Sodium Potassium Chloride Carbon Dioxide BUN Creatinine Glucose POC Glucose 158 H 150 H Lactic Acid Calcium Phosphorus Magnesium AST ALT Lactate Dehydrogenase Total Bilirubin Direct Bilirubin CK-MB (CK-2) C-Reactive Protein NT-Pro-B Natriuret Pep Total Protein Albumin Arterial Blood Glucose Urine WBC (Auto) Urine Creatinine 12/18/19 12/18/19 12/18/19 05:17 05:49 11:12 WBC RBC Hgb Hct MCHC RDW MCV MCH Lymph % (Auto) Saunders % (Auto) Saunders # Eos # Lymph # (Auto) Saunders # (Auto) Eos # (Auto) Seg Neutrophils % Seg Neuts % (Manual) Baso # (Auto) Lymphocytes % (Manual) Monocytes % (Manual) Eosinophils % (Manual) Basophils % (Manual) Seg Neutrophils # Seg Neutrophils # Man Lymphocytes # (Manual) Monocytes # (Manual) Eosinophils # (Manual) Nucleated RBC % Basophils # (Manual) PT INR APTT Heparin Anti-Xa Level 0.16 L ABG pH POC ABG pO2 ABG pO2 ABG HCO3 ABG O2 Saturation ABG Base Excess POC ABG pCO2 ABG Hemoglobin ABG Oxyhemoglobin ABG Glucose Oxyhemoglobin Sodium Potassium Chloride Carbon Dioxide BUN Creatinine Glucose POC Glucose 127 H 191 H Lactic Acid Calcium Phosphorus Magnesium AST ALT Lactate Dehydrogenase Total Bilirubin Direct Bilirubin CK-MB (CK-2) C-Reactive Protein NT-Pro-B Natriuret Pep Total Protein Albumin Arterial Blood Glucose Urine WBC (Auto) Urine Creatinine 12/18/19 12/18/19 12/19/19 17:03 20:16 00:08 WBC RBC Hgb Hct MCHC RDW MCV MCH Lymph % (Auto) Saunders % (Auto) Saunders # Eos # Lymph # (Auto) Saunders # (Auto) Eos # (Auto) Seg Neutrophils % Seg Neuts % (Manual) Baso # (Auto) Lymphocytes % (Manual) Monocytes % (Manual) Eosinophils % (Manual) Basophils % (Manual) Seg Neutrophils # Seg Neutrophils # Man Lymphocytes # (Manual) Monocytes # (Manual) Eosinophils # (Manual) Nucleated RBC % Basophils # (Manual) PT INR APTT Heparin Anti-Xa Level ABG pH POC ABG pO2 ABG pO2 ABG HCO3 ABG O2 Saturation ABG Base Excess POC ABG pCO2 ABG Hemoglobin ABG Oxyhemoglobin ABG Glucose Oxyhemoglobin Sodium Potassium Chloride Carbon Dioxide BUN Creatinine Glucose POC Glucose 133 H 128 H 129 H Lactic Acid Calcium Phosphorus Magnesium AST ALT Lactate Dehydrogenase Total Bilirubin Direct Bilirubin CK-MB (CK-2) C-Reactive Protein NT-Pro-B Natriuret Pep Total Protein Albumin Arterial Blood Glucose Urine WBC (Auto) Urine Creatinine 09/12/19/19 12/19/19 04:45 04:45 05:35 WBC RBC Hgb Hct MCHC RDW MCV MCH Lymph % (Auto) Saunders % (Auto) Saunders # Eos # Lymph # (Auto) Saunders # (Auto) Eos # (Auto) Seg Neutrophils % Seg Neuts % (Manual) Baso # (Auto) Lymphocytes % (Manual) Monocytes % (Manual) Eosinophils % (Manual) Basophils % (Manual) Seg Neutrophils # Seg Neutrophils # Man Lymphocytes # (Manual) Monocytes # (Manual) Eosinophils # (Manual) Nucleated RBC % Basophils # (Manual) PT INR APTT Heparin Anti-Xa Level 0.17 L ABG pH POC ABG pO2 ABG pO2 ABG HCO3 ABG O2 Saturation ABG Base Excess POC ABG pCO2 ABG Hemoglobin ABG Oxyhemoglobin ABG Glucose Oxyhemoglobin Sodium Potassium Chloride Carbon Dioxide BUN Creatinine Glucose POC Glucose 120 H Lactic Acid Calcium Phosphorus Magnesium AST ALT Lactate Dehydrogenase 228 H Total Bilirubin Direct Bilirubin CK-MB (CK-2) C-Reactive Protein NT-Pro-B Natriuret Pep Total Protein Albumin Arterial Blood Glucose Urine WBC (Auto) Urine Creatinine 12/19/19 12/19/19 12/19/19 09:20 11:32 11:32 WBC 14.6 H RBC 3.08 L Hgb 9.0 L Hct 26.8 L MCHC RDW 15.9 H MCV MCH Lymph % (Auto) Saunders % (Auto) Saunders # Eos # Lymph # (Auto) Saunders # (Auto) Eos # (Auto) Seg Neutrophils % Seg Neuts % (Manual) 82.0 H Baso # (Auto) Lymphocytes % (Manual) 10.0 L Monocytes % (Manual) Eosinophils % (Manual) Basophils % (Manual) Seg Neutrophils # Seg Neutrophils # Man 12.0 H Lymphocytes # (Manual) Monocytes # (Manual) 0.9 H Eosinophils # (Manual) Nucleated RBC % 1.0 H Basophils # (Manual) PT INR APTT Heparin Anti-Xa Level ABG pH 7.451 H POC ABG pO2 ABG pO2 62.6 L ABG HCO3 33.2 H ABG O2 Saturation 93.8 L ABG Base Excess 8.3 H POC ABG pCO2 ABG Hemoglobin 8.3 L ABG Oxyhemoglobin ABG Glucose Oxyhemoglobin 91.9 L Sodium Potassium Chloride 95.0 L Carbon Dioxide 33 H BUN 22 H Creatinine 0.6 L Glucose 150 H POC Glucose Lactic Acid Calcium Phosphorus Magnesium AST ALT Lactate Dehydrogenase Total Bilirubin Direct Bilirubin CK-MB (CK-2) C-Reactive Protein NT-Pro-B Natriuret Pep Total Protein 6.2 L Albumin 2.4 L Arterial Blood Glucose Urine WBC (Auto) Urine Creatinine 12/19/19 12/19/19 12/20/19 11:56 18:17 00:09 WBC RBC Hgb Hct MCHC RDW MCV MCH Lymph % (Auto) Saunders % (Auto) Saunders # Eos # Lymph # (Auto) Saunders # (Auto) Eos # (Auto) Seg Neutrophils % Seg Neuts % (Manual) Baso # (Auto) Lymphocytes % (Manual) Monocytes % (Manual) Eosinophils % (Manual) Basophils % (Manual) Seg Neutrophils # Seg Neutrophils # Man Lymphocytes # (Manual) Monocytes # (Manual) Eosinophils # (Manual) Nucleated RBC % Basophils # (Manual) PT INR APTT Heparin Anti-Xa Level ABG pH POC ABG pO2 ABG pO2 ABG HCO3 ABG O2 Saturation ABG Base Excess POC ABG pCO2 ABG Hemoglobin ABG Oxyhemoglobin ABG Glucose Oxyhemoglobin Sodium Potassium Chloride Carbon Dioxide BUN Creatinine Glucose POC Glucose 156 H 156 H 155 H Lactic Acid Calcium Phosphorus Magnesium AST ALT Lactate Dehydrogenase Total Bilirubin Direct Bilirubin CK-MB (CK-2) C-Reactive Protein NT-Pro-B Natriuret Pep Total Protein Albumin Arterial Blood Glucose Urine WBC (Auto) Urine Creatinine 12/20/19 12/20/19 12/20/19 05:26 06:02 18:17 WBC RBC Hgb Hct MCHC RDW MCV MCH Lymph % (Auto) Saunders % (Auto) Saunders # Eos # Lymph # (Auto) Saunders # (Auto) Eos # (Auto) Seg Neutrophils % Seg Neuts % (Manual) Baso # (Auto) Lymphocytes % (Manual) Monocytes % (Manual) Eosinophils % (Manual) Basophils % (Manual) Seg Neutrophils # Seg Neutrophils # Man Lymphocytes # (Manual) Monocytes # (Manual) Eosinophils # (Manual) Nucleated RBC % Basophils # (Manual) PT INR APTT Heparin Anti-Xa Level 0.19 L ABG pH POC ABG pO2 ABG pO2 ABG HCO3 ABG O2 Saturation ABG Base Excess POC ABG pCO2 ABG Hemoglobin ABG Oxyhemoglobin ABG Glucose Oxyhemoglobin Sodium Potassium Chloride Carbon Dioxide BUN Creatinine Glucose POC Glucose 137 H 128 H Lactic Acid Calcium Phosphorus Magnesium AST ALT Lactate Dehydrogenase Total Bilirubin Direct Bilirubin CK-MB (CK-2) C-Reactive Protein NT-Pro-B Natriuret Pep Total Protein Albumin Arterial Blood Glucose Urine WBC (Auto) Urine Creatinine 12/20/19 12/21/19 12/21/19 23:34 05:31 05:31 WBC 12.7 H RBC 3.09 L Hgb 8.9 L Hct 27.4 L MCHC RDW 15.8 H MCV MCH Lymph % (Auto) 12.1 L Saunders % (Auto) 7.8 H Saunders # Eos # Lymph # (Auto) Saunders # (Auto) 1.0 H Eos # (Auto) Seg Neutrophils % 77.1 H Seg Neuts % (Manual) Baso # (Auto) Lymphocytes % (Manual) Monocytes % (Manual) Eosinophils % (Manual) Basophils % (Manual) Seg Neutrophils # 9.8 H Seg Neutrophils # Man Lymphocytes # (Manual) Monocytes # (Manual) Eosinophils # (Manual) Nucleated RBC % Basophils # (Manual) PT INR APTT Heparin Anti-Xa Level ABG pH POC ABG pO2 ABG pO2 ABG HCO3 ABG O2 Saturation ABG Base Excess POC ABG pCO2 ABG Hemoglobin ABG Oxyhemoglobin ABG Glucose Oxyhemoglobin Sodium Potassium Chloride 96.9 L Carbon Dioxide 37 H BUN 27 H Creatinine 0.7 L Glucose 140 H POC Glucose 145 H Lactic Acid Calcium Phosphorus Magnesium AST ALT Lactate Dehydrogenase Total Bilirubin Direct Bilirubin CK-MB (CK-2) C-Reactive Protein NT-Pro-B Natriuret Pep Total Protein Albumin Arterial Blood Glucose Urine WBC (Auto) Urine Creatinine 12/21/19 12/21/19 12/21/19 05:38 10:13 11:51 WBC RBC Hgb Hct MCHC RDW MCV MCH Lymph % (Auto) Saunders % (Auto) Saunders # Eos # Lymph # (Auto) Saunders # (Auto) Eos # (Auto) Seg Neutrophils % Seg Neuts % (Manual) Baso # (Auto) Lymphocytes % (Manual) Monocytes % (Manual) Eosinophils % (Manual) Basophils % (Manual) Seg Neutrophils # Seg Neutrophils # Man Lymphocytes # (Manual) Monocytes # (Manual) Eosinophils # (Manual) Nucleated RBC % Basophils # (Manual) PT INR APTT 23.9 L Heparin Anti-Xa Level < 0.10 L ABG pH POC ABG pO2 ABG pO2 ABG HCO3 ABG O2 Saturation ABG Base Excess POC ABG pCO2 ABG Hemoglobin ABG Oxyhemoglobin ABG Glucose Oxyhemoglobin Sodium Potassium Chloride Carbon Dioxide BUN Creatinine Glucose POC Glucose 151 H 145 H Lactic Acid Calcium Phosphorus Magnesium AST ALT Lactate Dehydrogenase Total Bilirubin Direct Bilirubin CK-MB (CK-2) C-Reactive Protein NT-Pro-B Natriuret Pep Total Protein Albumin Arterial Blood Glucose Urine WBC (Auto) Urine Creatinine 12/21/19 12/22/19 12/22/19 17:16 00:01 01:33 WBC RBC Hgb Hct MCHC RDW MCV MCH Lymph % (Auto) Saunders % (Auto) Saunders # Eos # Lymph # (Auto) Saunders # (Auto) Eos # (Auto) Seg Neutrophils % Seg Neuts % (Manual) Baso # (Auto) Lymphocytes % (Manual) Monocytes % (Manual) Eosinophils % (Manual) Basophils % (Manual) Seg Neutrophils # Seg Neutrophils # Man Lymphocytes # (Manual) Monocytes # (Manual) Eosinophils # (Manual) Nucleated RBC % Basophils # (Manual) PT INR APTT Heparin Anti-Xa Level 0.10 L ABG pH POC ABG pO2 ABG pO2 ABG HCO3 ABG O2 Saturation ABG Base Excess POC ABG pCO2 ABG Hemoglobin ABG Oxyhemoglobin ABG Glucose Oxyhemoglobin Sodium Potassium Chloride Carbon Dioxide BUN Creatinine Glucose POC Glucose 167 H 179 H Lactic Acid Calcium Phosphorus Magnesium AST ALT Lactate Dehydrogenase Total Bilirubin Direct Bilirubin CK-MB (CK-2) C-Reactive Protein NT-Pro-B Natriuret Pep Total Protein Albumin Arterial Blood Glucose Urine WBC (Auto) Urine Creatinine 12/22/19 12/22/19 12/22/19 03:22 05:10 05:10 WBC 13.8 H RBC 3.20 L Hgb 8.9 L Hct 28.1 L MCHC RDW 15.9 H MCV MCH Lymph % (Auto) Saunders % (Auto) Saunders # Eos # Lymph # (Auto) Saunders # (Auto) Eos # (Auto) Seg Neutrophils % Seg Neuts % (Manual) Baso # (Auto) Lymphocytes % (Manual) Monocytes % (Manual) Eosinophils % (Manual) Basophils % (Manual) Seg Neutrophils # Seg Neutrophils # Man Lymphocytes # (Manual) Monocytes # (Manual) Eosinophils # (Manual) Nucleated RBC % Basophils # (Manual) PT INR APTT Heparin Anti-Xa Level ABG pH POC ABG pO2 52.3 L ABG pO2 ABG HCO3 ABG O2 Saturation ABG Base Excess POC ABG pCO2 52.9 H ABG Hemoglobin 10.7 L ABG Oxyhemoglobin 84 L ABG Glucose Oxyhemoglobin Sodium Potassium Chloride 96.6 L Carbon Dioxide BUN 25 H Creatinine 0.7 L Glucose 129 H POC Glucose Lactic Acid Calcium Phosphorus Magnesium AST ALT Lactate Dehydrogenase Total Bilirubin Direct Bilirubin CK-MB (CK-2) C-Reactive Protein NT-Pro-B Natriuret Pep Total Protein Albumin Arterial Blood Glucose Urine WBC (Auto) Urine Creatinine 12/22/19 12/22/19 12/22/19 05:18 12:32 12:43 WBC RBC Hgb Hct MCHC RDW MCV MCH Lymph % (Auto) Saunders % (Auto) Saunders # Eos # Lymph # (Auto) Saunders # (Auto) Eos # (Auto) Seg Neutrophils % Seg Neuts % (Manual) Baso # (Auto) Lymphocytes % (Manual) Monocytes % (Manual) Eosinophils % (Manual) Basophils % (Manual) Seg Neutrophils # Seg Neutrophils # Man Lymphocytes # (Manual) Monocytes # (Manual) Eosinophils # (Manual) Nucleated RBC % Basophils # (Manual) PT INR APTT Heparin Anti-Xa Level 0.18 L ABG pH POC ABG pO2 ABG pO2 ABG HCO3 ABG O2 Saturation ABG Base Excess POC ABG pCO2 ABG Hemoglobin ABG Oxyhemoglobin ABG Glucose Oxyhemoglobin Sodium Potassium Chloride Carbon Dioxide BUN Creatinine Glucose POC Glucose 131 H 208 H Lactic Acid Calcium Phosphorus Magnesium AST ALT Lactate Dehydrogenase Total Bilirubin Direct Bilirubin CK-MB (CK-2) C-Reactive Protein NT-Pro-B Natriuret Pep Total Protein Albumin Arterial Blood Glucose Urine WBC (Auto) Urine Creatinine 12/22/19 12/22/19 12/23/19 17:44 23:20 03:51 WBC 15.2 H RBC 3.43 L Hgb 9.6 L Hct 30.3 L MCHC RDW 15.9 H MCV MCH Lymph % (Auto) Saunders % (Auto) Saunders # Eos # Lymph # (Auto) Saunders # (Auto) Eos # (Auto) Seg Neutrophils % Seg Neuts % (Manual) Baso # (Auto) Lymphocytes % (Manual) Monocytes % (Manual) Eosinophils % (Manual) Basophils % (Manual) Seg Neutrophils # Seg Neutrophils # Man Lymphocytes # (Manual) Monocytes # (Manual) Eosinophils # (Manual) Nucleated RBC % Basophils # (Manual) PT INR APTT Heparin Anti-Xa Level ABG pH POC ABG pO2 ABG pO2 ABG HCO3 ABG O2 Saturation ABG Base Excess POC ABG pCO2 ABG Hemoglobin ABG Oxyhemoglobin ABG Glucose Oxyhemoglobin Sodium Potassium Chloride Carbon Dioxide BUN Creatinine Glucose POC Glucose 209 H 119 H Lactic Acid Calcium Phosphorus Magnesium AST ALT Lactate Dehydrogenase Total Bilirubin Direct Bilirubin CK-MB (CK-2) C-Reactive Protein NT-Pro-B Natriuret Pep Total Protein Albumin Arterial Blood Glucose Urine WBC (Auto) Urine Creatinine 12/23/19 12/23/19 12/23/19 03:51 05:31 12:09 WBC RBC Hgb Hct MCHC RDW MCV MCH Lymph % (Auto) Saunders % (Auto) Saunders # Eos # Lymph # (Auto) Saunders # (Auto) Eos # (Auto) Seg Neutrophils % Seg Neuts % (Manual) Baso # (Auto) Lymphocytes % (Manual) Monocytes % (Manual) Eosinophils % (Manual) Basophils % (Manual) Seg Neutrophils # Seg Neutrophils # Man Lymphocytes # (Manual) Monocytes # (Manual) Eosinophils # (Manual) Nucleated RBC % Basophils # (Manual) PT INR APTT Heparin Anti-Xa Level ABG pH POC ABG pO2 ABG pO2 ABG HCO3 ABG O2 Saturation ABG Base Excess POC ABG pCO2 ABG Hemoglobin ABG Oxyhemoglobin ABG Glucose Oxyhemoglobin Sodium Potassium Chloride 97.2 L Carbon Dioxide 31 H BUN 23 H Creatinine 0.6 L Glucose 153 H POC Glucose 149 H 144 H Lactic Acid Calcium Phosphorus Magnesium AST ALT Lactate Dehydrogenase Total Bilirubin Direct Bilirubin CK-MB (CK-2) C-Reactive Protein NT-Pro-B Natriuret Pep Total Protein Albumin Arterial Blood Glucose Urine WBC (Auto) Urine Creatinine 12/23/19 12/23/19 12/23/19 15:30 17:49 23:31 WBC RBC Hgb Hct MCHC RDW MCV MCH Lymph % (Auto) Saunders % (Auto) Saunders # Eos # Lymph # (Auto) Saunders # (Auto) Eos # (Auto) Seg Neutrophils % Seg Neuts % (Manual) Baso # (Auto) Lymphocytes % (Manual) Monocytes % (Manual) Eosinophils % (Manual) Basophils % (Manual) Seg Neutrophils # Seg Neutrophils # Man Lymphocytes # (Manual) Monocytes # (Manual) Eosinophils # (Manual) Nucleated RBC % Basophils # (Manual) PT INR APTT Heparin Anti-Xa Level 0.21 L ABG pH POC ABG pO2 ABG pO2 ABG HCO3 ABG O2 Saturation ABG Base Excess POC ABG pCO2 ABG Hemoglobin ABG Oxyhemoglobin ABG Glucose Oxyhemoglobin Sodium Potassium Chloride Carbon Dioxide BUN Creatinine Glucose POC Glucose 192 H 151 H Lactic Acid Calcium Phosphorus Magnesium AST ALT Lactate Dehydrogenase Total Bilirubin Direct Bilirubin CK-MB (CK-2) C-Reactive Protein NT-Pro-B Natriuret Pep Total Protein Albumin Arterial Blood Glucose Urine WBC (Auto) Urine Creatinine 12/24/19 12/24/19 12/24/19 05:34 12:13 16:50 WBC RBC Hgb Hct MCHC RDW MCV MCH Lymph % (Auto) Saunders % (Auto) Saunders # Eos # Lymph # (Auto) Saunders # (Auto) Eos # (Auto) Seg Neutrophils % Seg Neuts % (Manual) Baso # (Auto) Lymphocytes % (Manual) Monocytes % (Manual) Eosinophils % (Manual) Basophils % (Manual) Seg Neutrophils # Seg Neutrophils # Man Lymphocytes # (Manual) Monocytes # (Manual) Eosinophils # (Manual) Nucleated RBC % Basophils # (Manual) PT INR APTT Heparin Anti-Xa Level 0.16 L ABG pH POC ABG pO2 ABG pO2 ABG HCO3 ABG O2 Saturation ABG Base Excess POC ABG pCO2 ABG Hemoglobin ABG Oxyhemoglobin ABG Glucose Oxyhemoglobin Sodium Potassium Chloride Carbon Dioxide BUN Creatinine Glucose POC Glucose 145 H 124 H Lactic Acid Calcium Phosphorus Magnesium AST ALT Lactate Dehydrogenase Total Bilirubin Direct Bilirubin CK-MB (CK-2) C-Reactive Protein NT-Pro-B Natriuret Pep Total Protein Albumin Arterial Blood Glucose Urine WBC (Auto) Urine Creatinine 12/24/19 12/25/19 12/25/19 17:53 00:14 04:18 WBC 12.9 H RBC 3.30 L Hgb 9.1 L Hct 28.8 L MCHC RDW 16.4 H MCV MCH Lymph % (Auto) Saunders % (Auto) 7.8 H Saunders # Eos # Lymph # (Auto) Saunders # (Auto) 1.0 H Eos # (Auto) Seg Neutrophils % 75.5 H Seg Neuts % (Manual) Baso # (Auto) Lymphocytes % (Manual) Monocytes % (Manual) Eosinophils % (Manual) Basophils % (Manual) Seg Neutrophils # 9.7 H Seg Neutrophils # Man Lymphocytes # (Manual) Monocytes # (Manual) Eosinophils # (Manual) Nucleated RBC % Basophils # (Manual) PT INR APTT Heparin Anti-Xa Level ABG pH POC ABG pO2 ABG pO2 ABG HCO3 ABG O2 Saturation ABG Base Excess POC ABG pCO2 ABG Hemoglobin ABG Oxyhemoglobin ABG Glucose Oxyhemoglobin Sodium Potassium Chloride Carbon Dioxide BUN Creatinine Glucose POC Glucose 164 H 148 H Lactic Acid Calcium Phosphorus Magnesium AST ALT Lactate Dehydrogenase Total Bilirubin Direct Bilirubin CK-MB (CK-2) C-Reactive Protein NT-Pro-B Natriuret Pep Total Protein Albumin Arterial Blood Glucose Urine WBC (Auto) Urine Creatinine 12/25/19 12/25/19 12/25/19 04:18 05:38 11:44 WBC RBC Hgb Hct MCHC RDW MCV MCH Lymph % (Auto) Saunders % (Auto) Saunders # Eos # Lymph # (Auto) Saunders # (Auto) Eos # (Auto) Seg Neutrophils % Seg Neuts % (Manual) Baso # (Auto) Lymphocytes % (Manual) Monocytes % (Manual) Eosinophils % (Manual) Basophils % (Manual) Seg Neutrophils # Seg Neutrophils # Man Lymphocytes # (Manual) Monocytes # (Manual) Eosinophils # (Manual) Nucleated RBC % Basophils # (Manual) PT INR APTT Heparin Anti-Xa Level ABG pH POC ABG pO2 ABG pO2 ABG HCO3 ABG O2 Saturation ABG Base Excess POC ABG pCO2 ABG Hemoglobin ABG Oxyhemoglobin ABG Glucose Oxyhemoglobin Sodium Potassium Chloride Carbon Dioxide 33 H BUN 27 H Creatinine 0.6 L Glucose 132 H POC Glucose 152 H 166 H Lactic Acid Calcium Phosphorus Magnesium AST ALT Lactate Dehydrogenase Total Bilirubin Direct Bilirubin CK-MB (CK-2) C-Reactive Protein NT-Pro-B Natriuret Pep Total Protein Albumin Arterial Blood Glucose Urine WBC (Auto) Urine Creatinine 12/25/19 12/26/19 12/26/19 18:29 00:17 00:18 WBC RBC Hgb Hct MCHC RDW MCV MCH Lymph % (Auto) Saunders % (Auto) Saunders # Eos # Lymph # (Auto) Saunders # (Auto) Eos # (Auto) Seg Neutrophils % Seg Neuts % (Manual) Baso # (Auto) Lymphocytes % (Manual) Monocytes % (Manual) Eosinophils % (Manual) Basophils % (Manual) Seg Neutrophils # Seg Neutrophils # Man Lymphocytes # (Manual) Monocytes # (Manual) Eosinophils # (Manual) Nucleated RBC % Basophils # (Manual) PT INR APTT Heparin Anti-Xa Level ABG pH POC ABG pO2 ABG pO2 ABG HCO3 ABG O2 Saturation ABG Base Excess POC ABG pCO2 ABG Hemoglobin ABG Oxyhemoglobin ABG Glucose Oxyhemoglobin Sodium Potassium Chloride 97.8 L Carbon Dioxide BUN 25 H Creatinine 0.6 L Glucose 140 H POC Glucose 194 H 151 H Lactic Acid Calcium Phosphorus Magnesium AST ALT Lactate Dehydrogenase Total Bilirubin Direct Bilirubin CK-MB (CK-2) C-Reactive Protein NT-Pro-B Natriuret Pep Total Protein Albumin Arterial Blood Glucose Urine WBC (Auto) Urine Creatinine 12/26/19 12/26/19 12/26/19 05:36 11:41 17:50 WBC RBC Hgb Hct MCHC RDW MCV MCH Lymph % (Auto) Saunders % (Auto) Saunders # Eos # Lymph # (Auto) Saunders # (Auto) Eos # (Auto) Seg Neutrophils % Seg Neuts % (Manual) Baso # (Auto) Lymphocytes % (Manual) Monocytes % (Manual) Eosinophils % (Manual) Basophils % (Manual) Seg Neutrophils # Seg Neutrophils # Man Lymphocytes # (Manual) Monocytes # (Manual) Eosinophils # (Manual) Nucleated RBC % Basophils # (Manual) PT INR APTT Heparin Anti-Xa Level ABG pH POC ABG pO2 ABG pO2 ABG HCO3 ABG O2 Saturation ABG Base Excess POC ABG pCO2 ABG Hemoglobin ABG Oxyhemoglobin ABG Glucose Oxyhemoglobin Sodium Potassium Chloride Carbon Dioxide BUN Creatinine Glucose POC Glucose 156 H 148 H 139 H Lactic Acid Calcium Phosphorus Magnesium AST ALT Lactate Dehydrogenase Total Bilirubin Direct Bilirubin CK-MB (CK-2) C-Reactive Protein NT-Pro-B Natriuret Pep Total Protein Albumin Arterial Blood Glucose Urine WBC (Auto) Urine Creatinine 12/26/19 12/27/19 12/27/19 23:19 05:34 12:02 WBC RBC Hgb Hct MCHC RDW MCV MCH Lymph % (Auto) Saunders % (Auto) Saunders # Eos # Lymph # (Auto) Saunders # (Auto) Eos # (Auto) Seg Neutrophils % Seg Neuts % (Manual) Baso # (Auto) Lymphocytes % (Manual) Monocytes % (Manual) Eosinophils % (Manual) Basophils % (Manual) Seg Neutrophils # Seg Neutrophils # Man Lymphocytes # (Manual) Monocytes # (Manual) Eosinophils # (Manual) Nucleated RBC % Basophils # (Manual) PT INR APTT Heparin Anti-Xa Level ABG pH POC ABG pO2 ABG pO2 ABG HCO3 ABG O2 Saturation ABG Base Excess POC ABG pCO2 ABG Hemoglobin ABG Oxyhemoglobin ABG Glucose Oxyhemoglobin Sodium Potassium Chloride Carbon Dioxide BUN Creatinine Glucose POC Glucose 161 H 145 H 157 H Lactic Acid Calcium Phosphorus Magnesium AST ALT Lactate Dehydrogenase Total Bilirubin Direct Bilirubin CK-MB (CK-2) C-Reactive Protein NT-Pro-B Natriuret Pep Total Protein Albumin Arterial Blood Glucose Urine WBC (Auto) Urine Creatinine 12/27/19 12/27/19 12/27/19 17:35 20:11 23:00 WBC RBC Hgb Hct MCHC RDW MCV MCH Lymph % (Auto) Saunders % (Auto) Saunders # Eos # Lymph # (Auto) Saunders # (Auto) Eos # (Auto) Seg Neutrophils % Seg Neuts % (Manual) Baso # (Auto) Lymphocytes % (Manual) Monocytes % (Manual) Eosinophils % (Manual) Basophils % (Manual) Seg Neutrophils # Seg Neutrophils # Man Lymphocytes # (Manual) Monocytes # (Manual) Eosinophils # (Manual) Nucleated RBC % Basophils # (Manual) PT INR APTT Heparin Anti-Xa Level 0.19 L ABG pH POC ABG pO2 ABG pO2 ABG HCO3 ABG O2 Saturation ABG Base Excess POC ABG pCO2 ABG Hemoglobin ABG Oxyhemoglobin ABG Glucose Oxyhemoglobin Sodium Potassium Chloride Carbon Dioxide BUN Creatinine Glucose POC Glucose 158 H 155 H Lactic Acid Calcium Phosphorus Magnesium AST ALT Lactate Dehydrogenase Total Bilirubin Direct Bilirubin CK-MB (CK-2) C-Reactive Protein NT-Pro-B Natriuret Pep Total Protein Albumin Arterial Blood Glucose Urine WBC (Auto) Urine Creatinine 12/27/19 12/28/19 12/28/19 23:45 02:41 02:41 WBC 13.0 H RBC 3.48 L Hgb 9.5 L Hct 30.6 L MCHC 31 L RDW 16.6 H MCV MCH 27 L Lymph % (Auto) 13.0 L Saunders % (Auto) 8.0 H Saunders # Eos # Lymph # (Auto) Saunders # (Auto) 1.0 H Eos # (Auto) Seg Neutrophils % 76.3 H Seg Neuts % (Manual) Baso # (Auto) Lymphocytes % (Manual) Monocytes % (Manual) Eosinophils % (Manual) Basophils % (Manual) Seg Neutrophils # 9.9 H Seg Neutrophils # Man Lymphocytes # (Manual) Monocytes # (Manual) Eosinophils # (Manual) Nucleated RBC % Basophils # (Manual) PT INR APTT Heparin Anti-Xa Level ABG pH POC ABG pO2 ABG pO2 ABG HCO3 ABG O2 Saturation ABG Base Excess POC ABG pCO2 ABG Hemoglobin ABG Oxyhemoglobin ABG Glucose Oxyhemoglobin Sodium Potassium Chloride Carbon Dioxide BUN 22 H Creatinine 0.6 L Glucose 101 H POC Glucose 130 H Lactic Acid Calcium Phosphorus Magnesium AST ALT Lactate Dehydrogenase Total Bilirubin Direct Bilirubin CK-MB (CK-2) C-Reactive Protein NT-Pro-B Natriuret Pep Total Protein Albumin Arterial Blood Glucose Urine WBC (Auto) Urine Creatinine 12/28/19 12/28/19 12/28/19 06:00 12:34 18:13 WBC RBC Hgb Hct MCHC RDW MCV MCH Lymph % (Auto) Saunders % (Auto) Saunders # Eos # Lymph # (Auto) Saunders # (Auto) Eos # (Auto) Seg Neutrophils % Seg Neuts % (Manual) Baso # (Auto) Lymphocytes % (Manual) Monocytes % (Manual) Eosinophils % (Manual) Basophils % (Manual) Seg Neutrophils # Seg Neutrophils # Man Lymphocytes # (Manual) Monocytes # (Manual) Eosinophils # (Manual) Nucleated RBC % Basophils # (Manual) PT INR APTT Heparin Anti-Xa Level ABG pH POC ABG pO2 ABG pO2 ABG HCO3 ABG O2 Saturation ABG Base Excess POC ABG pCO2 ABG Hemoglobin ABG Oxyhemoglobin ABG Glucose Oxyhemoglobin Sodium Potassium Chloride Carbon Dioxide BUN Creatinine Glucose POC Glucose 150 H 161 H 128 H Lactic Acid Calcium Phosphorus Magnesium AST ALT Lactate Dehydrogenase Total Bilirubin Direct Bilirubin CK-MB (CK-2) C-Reactive Protein NT-Pro-B Natriuret Pep Total Protein Albumin Arterial Blood Glucose Urine WBC (Auto) Urine Creatinine 12/28/19 12/29/19 12/29/19 23:36 05:21 11:40 WBC RBC Hgb Hct MCHC RDW MCV MCH Lymph % (Auto) Saunders % (Auto) Saunders # Eos # Lymph # (Auto) Saunders # (Auto) Eos # (Auto) Seg Neutrophils % Seg Neuts % (Manual) Baso # (Auto) Lymphocytes % (Manual) Monocytes % (Manual) Eosinophils % (Manual) Basophils % (Manual) Seg Neutrophils # Seg Neutrophils # Man Lymphocytes # (Manual) Monocytes # (Manual) Eosinophils # (Manual) Nucleated RBC % Basophils # (Manual) PT INR APTT Heparin Anti-Xa Level ABG pH POC ABG pO2 ABG pO2 ABG HCO3 ABG O2 Saturation ABG Base Excess POC ABG pCO2 ABG Hemoglobin ABG Oxyhemoglobin ABG Glucose Oxyhemoglobin Sodium Potassium Chloride Carbon Dioxide BUN Creatinine Glucose POC Glucose 137 H 136 H 166 H Lactic Acid Calcium Phosphorus Magnesium AST ALT Lactate Dehydrogenase Total Bilirubin Direct Bilirubin CK-MB (CK-2) C-Reactive Protein NT-Pro-B Natriuret Pep Total Protein Albumin Arterial Blood Glucose Urine WBC (Auto) Urine Creatinine 12/29/19 12/29/19 12/29/19 17:23 19:21 23:38 WBC RBC Hgb Hct MCHC RDW MCV MCH Lymph % (Auto) Saunders % (Auto) Saunders # Eos # Lymph # (Auto) Saunders # (Auto) Eos # (Auto) Seg Neutrophils % Seg Neuts % (Manual) Baso # (Auto) Lymphocytes % (Manual) Monocytes % (Manual) Eosinophils % (Manual) Basophils % (Manual) Seg Neutrophils # Seg Neutrophils # Man Lymphocytes # (Manual) Monocytes # (Manual) Eosinophils # (Manual) Nucleated RBC % Basophils # (Manual) PT INR APTT Heparin Anti-Xa Level 0.20 L ABG pH POC ABG pO2 ABG pO2 ABG HCO3 ABG O2 Saturation ABG Base Excess POC ABG pCO2 ABG Hemoglobin ABG Oxyhemoglobin ABG Glucose Oxyhemoglobin Sodium Potassium Chloride Carbon Dioxide BUN Creatinine Glucose POC Glucose 144 H 141 H Lactic Acid Calcium Phosphorus Magnesium AST ALT Lactate Dehydrogenase Total Bilirubin Direct Bilirubin CK-MB (CK-2) C-Reactive Protein NT-Pro-B Natriuret Pep Total Protein Albumin Arterial Blood Glucose Urine WBC (Auto) Urine Creatinine 12/30/19 12/30/19 12/30/19 03:58 03:58 04:59 WBC RBC 3.54 L Hgb 9.8 L Hct 30.7 L MCHC RDW 16.8 H MCV MCH Lymph % (Auto) Saunders % (Auto) Saunders # Eos # Lymph # (Auto) Saunders # (Auto) Eos # (Auto) Seg Neutrophils % Seg Neuts % (Manual) Baso # (Auto) Lymphocytes % (Manual) Monocytes % (Manual) Eosinophils % (Manual) Basophils % (Manual) Seg Neutrophils # Seg Neutrophils # Man Lymphocytes # (Manual) Monocytes # (Manual) Eosinophils # (Manual) Nucleated RBC % Basophils # (Manual) PT INR APTT Heparin Anti-Xa Level ABG pH POC ABG pO2 ABG pO2 ABG HCO3 29.8 H ABG O2 Saturation ABG Base Excess 4.8 H POC ABG pCO2 ABG Hemoglobin 11.2 L ABG Oxyhemoglobin ABG Glucose Oxyhemoglobin 93.8 L Sodium Potassium Chloride 97.8 L Carbon Dioxide BUN 26 H Creatinine Glucose 168 H POC Glucose Lactic Acid Calcium Phosphorus Magnesium AST ALT Lactate Dehydrogenase Total Bilirubin Direct Bilirubin CK-MB (CK-2) C-Reactive Protein NT-Pro-B Natriuret Pep Total Protein Albumin Arterial Blood Glucose Urine WBC (Auto) Urine Creatinine 12/30/19 12/30/19 12/30/19 05:45 11:34 17:28 WBC RBC Hgb Hct MCHC RDW MCV MCH Lymph % (Auto) Saunders % (Auto) Saunders # Eos # Lymph # (Auto) Saunders # (Auto) Eos # (Auto) Seg Neutrophils % Seg Neuts % (Manual) Baso # (Auto) Lymphocytes % (Manual) Monocytes % (Manual) Eosinophils % (Manual) Basophils % (Manual) Seg Neutrophils # Seg Neutrophils # Man Lymphocytes # (Manual) Monocytes # (Manual) Eosinophils # (Manual) Nucleated RBC % Basophils # (Manual) PT INR APTT Heparin Anti-Xa Level ABG pH POC ABG pO2 ABG pO2 ABG HCO3 ABG O2 Saturation ABG Base Excess POC ABG pCO2 ABG Hemoglobin ABG Oxyhemoglobin ABG Glucose Oxyhemoglobin Sodium Potassium Chloride Carbon Dioxide BUN Creatinine Glucose POC Glucose 163 H 180 H 150 H Lactic Acid Calcium Phosphorus Magnesium AST ALT Lactate Dehydrogenase Total Bilirubin Direct Bilirubin CK-MB (CK-2) C-Reactive Protein NT-Pro-B Natriuret Pep Total Protein Albumin Arterial Blood Glucose Urine WBC (Auto) Urine Creatinine 12/30/19 12/31/19 12/31/19 23:43 04:55 05:07 WBC RBC Hgb Hct MCHC RDW MCV MCH Lymph % (Auto) Saunders % (Auto) Saunders # Eos # Lymph # (Auto) Saunders # (Auto) Eos # (Auto) Seg Neutrophils % Seg Neuts % (Manual) Baso # (Auto) Lymphocytes % (Manual) Monocytes % (Manual) Eosinophils % (Manual) Basophils % (Manual) Seg Neutrophils # Seg Neutrophils # Man Lymphocytes # (Manual) Monocytes # (Manual) Eosinophils # (Manual) Nucleated RBC % Basophils # (Manual) PT INR APTT Heparin Anti-Xa Level ABG pH POC ABG pO2 ABG pO2 ABG HCO3 ABG O2 Saturation ABG Base Excess POC ABG pCO2 ABG Hemoglobin ABG Oxyhemoglobin ABG Glucose Oxyhemoglobin Sodium Potassium 5.6 H D Chloride Carbon Dioxide BUN 33 H Creatinine Glucose 131 H POC Glucose 142 H 134 H Lactic Acid Calcium Phosphorus Magnesium AST ALT Lactate Dehydrogenase Total Bilirubin Direct Bilirubin CK-MB (CK-2) C-Reactive Protein NT-Pro-B Natriuret Pep Total Protein Albumin Arterial Blood Glucose Urine WBC (Auto) Urine Creatinine 12/31/19 12/31/19 12/31/19 11:30 17:19 17:36 WBC RBC Hgb Hct MCHC RDW MCV MCH Lymph % (Auto) Saunders % (Auto) Saunders # Eos # Lymph # (Auto) Saunders # (Auto) Eos # (Auto) Seg Neutrophils % Seg Neuts % (Manual) Baso # (Auto) Lymphocytes % (Manual) Monocytes % (Manual) Eosinophils % (Manual) Basophils % (Manual) Seg Neutrophils # Seg Neutrophils # Man Lymphocytes # (Manual) Monocytes # (Manual) Eosinophils # (Manual) Nucleated RBC % Basophils # (Manual) PT INR APTT Heparin Anti-Xa Level ABG pH POC ABG pO2 ABG pO2 ABG HCO3 ABG O2 Saturation ABG Base Excess POC ABG pCO2 ABG Hemoglobin ABG Oxyhemoglobin ABG Glucose Oxyhemoglobin Sodium Potassium Chloride Carbon Dioxide BUN 35 H Creatinine Glucose 156 H POC Glucose 158 H 181 H Lactic Acid Calcium Phosphorus Magnesium AST ALT Lactate Dehydrogenase Total Bilirubin Direct Bilirubin CK-MB (CK-2) C-Reactive Protein NT-Pro-B Natriuret Pep Total Protein Albumin Arterial Blood Glucose Urine WBC (Auto) Urine Creatinine 12/31/19 12/31/19 12/31/19 18:16 19:41 21:53 WBC RBC Hgb Hct MCHC RDW MCV MCH Lymph % (Auto) Saunders % (Auto) Saunders # Eos # Lymph # (Auto) Saunders # (Auto) Eos # (Auto) Seg Neutrophils % Seg Neuts % (Manual) Baso # (Auto) Lymphocytes % (Manual) Monocytes % (Manual) Eosinophils % (Manual) Basophils % (Manual) Seg Neutrophils # Seg Neutrophils # Man Lymphocytes # (Manual) Monocytes # (Manual) Eosinophils # (Manual) Nucleated RBC % Basophils # (Manual) PT INR APTT Heparin Anti-Xa Level 0.20 L ABG pH POC ABG pO2 ABG pO2 ABG HCO3 ABG O2 Saturation ABG Base Excess POC ABG pCO2 ABG Hemoglobin ABG Oxyhemoglobin ABG Glucose Oxyhemoglobin Sodium Potassium Chloride Carbon Dioxide BUN 34 H Creatinine Glucose 169 H POC Glucose 141 H Lactic Acid Calcium Phosphorus Magnesium AST ALT Lactate Dehydrogenase Total Bilirubin Direct Bilirubin CK-MB (CK-2) C-Reactive Protein NT-Pro-B Natriuret Pep Total Protein Albumin Arterial Blood Glucose Urine WBC (Auto) Urine Creatinine 12/31/19 01/01/20 01/01/20 23:51 05:17 10:40 WBC RBC Hgb Hct MCHC RDW MCV MCH Lymph % (Auto) Saunders % (Auto) Saunders # Eos # Lymph # (Auto) Saunders # (Auto) Eos # (Auto) Seg Neutrophils % Seg Neuts % (Manual) Baso # (Auto) Lymphocytes % (Manual) Monocytes % (Manual) Eosinophils % (Manual) Basophils % (Manual) Seg Neutrophils # Seg Neutrophils # Man Lymphocytes # (Manual) Monocytes # (Manual) Eosinophils # (Manual) Nucleated RBC % Basophils # (Manual) PT INR APTT Heparin Anti-Xa Level ABG pH POC ABG pO2 ABG pO2 ABG HCO3 ABG O2 Saturation ABG Base Excess POC ABG pCO2 ABG Hemoglobin ABG Oxyhemoglobin ABG Glucose Oxyhemoglobin Sodium Potassium Chloride Carbon Dioxide BUN 31 H Creatinine 0.7 L Glucose 137 H POC Glucose 131 H 155 H Lactic Acid Calcium Phosphorus Magnesium AST 73 H ALT 97 H Lactate Dehydrogenase Total Bilirubin Direct Bilirubin CK-MB (CK-2) C-Reactive Protein NT-Pro-B Natriuret Pep 3866 H Total Protein Albumin 2.8 L Arterial Blood Glucose Urine WBC (Auto) Urine Creatinine 01/01/20 01/01/20 01/01/20 12:26 15:33 17:53 WBC 14.3 H RBC 3.35 L Hgb 9.1 L Hct 28.8 L MCHC RDW 17.0 H MCV MCH 27 L Lymph % (Auto) 7.0 L Saunders % (Auto) 7.6 H Saunders # Eos # Lymph # (Auto) 1.0 L Saunders # (Auto) 1.1 H Eos # (Auto) Seg Neutrophils % 83.3 H Seg Neuts % (Manual) Baso # (Auto) Lymphocytes % (Manual) Monocytes % (Manual) Eosinophils % (Manual) Basophils % (Manual) Seg Neutrophils # 12.0 H Seg Neutrophils # Man Lymphocytes # (Manual) Monocytes # (Manual) Eosinophils # (Manual) Nucleated RBC % Basophils # (Manual) PT INR APTT Heparin Anti-Xa Level ABG pH POC ABG pO2 ABG pO2 ABG HCO3 ABG O2 Saturation ABG Base Excess POC ABG pCO2 ABG Hemoglobin ABG Oxyhemoglobin ABG Glucose Oxyhemoglobin Sodium Potassium Chloride Carbon Dioxide BUN Creatinine Glucose POC Glucose 128 H 128 H Lactic Acid Calcium Phosphorus Magnesium AST ALT Lactate Dehydrogenase Total Bilirubin Direct Bilirubin CK-MB (CK-2) C-Reactive Protein NT-Pro-B Natriuret Pep Total Protein Albumin Arterial Blood Glucose Urine WBC (Auto) Urine Creatinine 01/01/20 01/02/20 01/02/20 23:04 05:39 07:00 WBC RBC Hgb Hct MCHC RDW MCV MCH Lymph % (Auto) Saunders % (Auto) Saunders # Eos # Lymph # (Auto) Saunders # (Auto) Eos # (Auto) Seg Neutrophils % Seg Neuts % (Manual) Baso # (Auto) Lymphocytes % (Manual) Monocytes % (Manual) Eosinophils % (Manual) Basophils % (Manual) Seg Neutrophils # Seg Neutrophils # Man Lymphocytes # (Manual) Monocytes # (Manual) Eosinophils # (Manual) Nucleated RBC % Basophils # (Manual) PT INR APTT Heparin Anti-Xa Level 0.13 L ABG pH POC ABG pO2 ABG pO2 ABG HCO3 ABG O2 Saturation ABG Base Excess POC ABG pCO2 ABG Hemoglobin ABG Oxyhemoglobin ABG Glucose Oxyhemoglobin Sodium Potassium Chloride Carbon Dioxide BUN Creatinine Glucose POC Glucose 120 H 169 H Lactic Acid Calcium Phosphorus Magnesium AST ALT Lactate Dehydrogenase Total Bilirubin Direct Bilirubin CK-MB (CK-2) C-Reactive Protein NT-Pro-B Natriuret Pep Total Protein Albumin Arterial Blood Glucose Urine WBC (Auto) Urine Creatinine 01/02/20 01/02/20 01/02/20 12:15 14:06 17:58 WBC RBC Hgb Hct MCHC RDW MCV MCH Lymph % (Auto) Saunders % (Auto) Saunders # Eos # Lymph # (Auto) Saunders # (Auto) Eos # (Auto) Seg Neutrophils % Seg Neuts % (Manual) Baso # (Auto) Lymphocytes % (Manual) Monocytes % (Manual) Eosinophils % (Manual) Basophils % (Manual) Seg Neutrophils # Seg Neutrophils # Man Lymphocytes # (Manual) Monocytes # (Manual) Eosinophils # (Manual) Nucleated RBC % Basophils # (Manual) PT INR APTT Heparin Anti-Xa Level < 0.10 L ABG pH POC ABG pO2 ABG pO2 ABG HCO3 ABG O2 Saturation ABG Base Excess POC ABG pCO2 ABG Hemoglobin ABG Oxyhemoglobin ABG Glucose Oxyhemoglobin Sodium Potassium Chloride Carbon Dioxide BUN Creatinine Glucose POC Glucose 190 H 198 H Lactic Acid Calcium Phosphorus Magnesium AST ALT Lactate Dehydrogenase Total Bilirubin Direct Bilirubin CK-MB (CK-2) C-Reactive Protein NT-Pro-B Natriuret Pep Total Protein Albumin Arterial Blood Glucose Urine WBC (Auto) Urine Creatinine 01/02/20 01/02/20 01/03/20 21:43 23:33 05:42 WBC RBC Hgb Hct MCHC RDW MCV MCH Lymph % (Auto) Saunders % (Auto) Saunders # Eos # Lymph # (Auto) Saunders # (Auto) Eos # (Auto) Seg Neutrophils % Seg Neuts % (Manual) Baso # (Auto) Lymphocytes % (Manual) Monocytes % (Manual) Eosinophils % (Manual) Basophils % (Manual) Seg Neutrophils # Seg Neutrophils # Man Lymphocytes # (Manual) Monocytes # (Manual) Eosinophils # (Manual) Nucleated RBC % Basophils # (Manual) PT INR APTT Heparin Anti-Xa Level 0.10 L ABG pH POC ABG pO2 ABG pO2 ABG HCO3 ABG O2 Saturation ABG Base Excess POC ABG pCO2 ABG Hemoglobin ABG Oxyhemoglobin ABG Glucose Oxyhemoglobin Sodium Potassium Chloride Carbon Dioxide BUN Creatinine Glucose POC Glucose 180 H 163 H Lactic Acid Calcium Phosphorus Magnesium AST ALT Lactate Dehydrogenase Total Bilirubin Direct Bilirubin CK-MB (CK-2) C-Reactive Protein NT-Pro-B Natriuret Pep Total Protein Albumin Arterial Blood Glucose Urine WBC (Auto) Urine Creatinine 01/03/20 01/03/20 01/03/20 06:50 07:25 07:45 WBC 12.1 H RBC 3.35 L Hgb 9.0 L Hct 28.9 L MCHC 31 L RDW 16.6 H MCV MCH 27 L Lymph % (Auto) 13.0 L Saunders % (Auto) 8.6 H Saunders # Eos # Lymph # (Auto) Saunders # (Auto) 1.0 H Eos # (Auto) Seg Neutrophils % 75.9 H Seg Neuts % (Manual) Baso # (Auto) Lymphocytes % (Manual) Monocytes % (Manual) Eosinophils % (Manual) Basophils % (Manual) Seg Neutrophils # 9.2 H Seg Neutrophils # Man Lymphocytes # (Manual) Monocytes # (Manual) Eosinophils # (Manual) Nucleated RBC % Basophils # (Manual) PT INR APTT Heparin Anti-Xa Level 0.29 L ABG pH POC ABG pO2 ABG pO2 ABG HCO3 ABG O2 Saturation ABG Base Excess POC ABG pCO2 ABG Hemoglobin ABG Oxyhemoglobin ABG Glucose Oxyhemoglobin Sodium Potassium 3.3 L D Chloride Carbon Dioxide 35 H D BUN 23 H Creatinine 0.6 L Glucose 149 H POC Glucose Lactic Acid Calcium Phosphorus Magnesium AST ALT 88 H Lactate Dehydrogenase Total Bilirubin Direct Bilirubin CK-MB (CK-2) C-Reactive Protein NT-Pro-B Natriuret Pep Total Protein 6.2 L Albumin 2.9 L Arterial Blood Glucose Urine WBC (Auto) Urine Creatinine 01/03/20 01/03/20 01/03/20 12:05 17:42 18:30 WBC RBC Hgb Hct MCHC RDW MCV MCH Lymph % (Auto) Saunders % (Auto) Saunders # Eos # Lymph # (Auto) Saunders # (Auto) Eos # (Auto) Seg Neutrophils % Seg Neuts % (Manual) Baso # (Auto) Lymphocytes % (Manual) Monocytes % (Manual) Eosinophils % (Manual) Basophils % (Manual) Seg Neutrophils # Seg Neutrophils # Man Lymphocytes # (Manual) Monocytes # (Manual) Eosinophils # (Manual) Nucleated RBC % Basophils # (Manual) PT INR APTT Heparin Anti-Xa Level ABG pH POC ABG pO2 ABG pO2 70.7 L ABG HCO3 36.1 H ABG O2 Saturation 94.4 L ABG Base Excess 10.0 H POC ABG pCO2 ABG Hemoglobin 9.7 L ABG Oxyhemoglobin ABG Glucose Oxyhemoglobin 91.8 L Sodium Potassium Chloride Carbon Dioxide BUN Creatinine Glucose POC Glucose 128 H 132 H Lactic Acid Calcium Phosphorus Magnesium AST ALT Lactate Dehydrogenase Total Bilirubin Direct Bilirubin CK-MB (CK-2) C-Reactive Protein NT-Pro-B Natriuret Pep Total Protein Albumin Arterial Blood Glucose Urine WBC (Auto) Urine Creatinine 01/04/20 01/04/20 01/04/20 00:10 04:26 05:23 WBC RBC Hgb Hct MCHC RDW MCV MCH Lymph % (Auto) Saunders % (Auto) Saunders # Eos # Lymph # (Auto) Saunders # (Auto) Eos # (Auto) Seg Neutrophils % Seg Neuts % (Manual) Baso # (Auto) Lymphocytes % (Manual) Monocytes % (Manual) Eosinophils % (Manual) Basophils % (Manual) Seg Neutrophils # Seg Neutrophils # Man Lymphocytes # (Manual) Monocytes # (Manual) Eosinophils # (Manual) Nucleated RBC % Basophils # (Manual) PT INR APTT Heparin Anti-Xa Level 0.16 L ABG pH POC ABG pO2 ABG pO2 ABG HCO3 ABG O2 Saturation ABG Base Excess POC ABG pCO2 ABG Hemoglobin ABG Oxyhemoglobin ABG Glucose Oxyhemoglobin Sodium Potassium Chloride Carbon Dioxide BUN Creatinine Glucose POC Glucose 121 H 119 H Lactic Acid Calcium Phosphorus Magnesium AST ALT Lactate Dehydrogenase Total Bilirubin Direct Bilirubin CK-MB (CK-2) C-Reactive Protein NT-Pro-B Natriuret Pep Total Protein Albumin Arterial Blood Glucose Urine WBC (Auto) Urine Creatinine 01/04/20 01/04/20 01/04/20 09:50 09:50 12:18 WBC 15.4 H RBC 3.30 L Hgb 8.7 L Hct 28.2 L MCHC 31 L RDW 17.0 H MCV MCH 26 L Lymph % (Auto) Saunders % (Auto) 7.6 H Saunders # Eos # Lymph # (Auto) Saunders # (Auto) 1.2 H Eos # (Auto) Seg Neutrophils % 75.4 H Seg Neuts % (Manual) Baso # (Auto) Lymphocytes % (Manual) Monocytes % (Manual) Eosinophils % (Manual) Basophils % (Manual) Seg Neutrophils # 11.6 H Seg Neutrophils # Man Lymphocytes # (Manual) Monocytes # (Manual) Eosinophils # (Manual) Nucleated RBC % Basophils # (Manual) PT INR APTT Heparin Anti-Xa Level ABG pH POC ABG pO2 ABG pO2 ABG HCO3 ABG O2 Saturation ABG Base Excess POC ABG pCO2 ABG Hemoglobin ABG Oxyhemoglobin ABG Glucose Oxyhemoglobin Sodium 148 H Potassium 3.5 L Chloride Carbon Dioxide 32 H BUN Creatinine 0.6 L Glucose 114 H POC Glucose 111 H Lactic Acid Calcium Phosphorus Magnesium AST ALT 59 H Lactate Dehydrogenase Total Bilirubin Direct Bilirubin CK-MB (CK-2) C-Reactive Protein NT-Pro-B Natriuret Pep Total Protein Albumin 2.6 L Arterial Blood Glucose Urine WBC (Auto) Urine Creatinine 01/05/20 01/05/20 01/05/20 04:05 04:05 05:19 WBC 11.7 H RBC 3.50 L Hgb 9.3 L Hct 29.9 L MCHC 31 L RDW 16.6 H MCV MCH 27 L Lymph % (Auto) 13.1 L Saunders % (Auto) 9.7 H Saunders # Eos # Lymph # (Auto) Saunders # (Auto) 1.1 H Eos # (Auto) Seg Neutrophils % 74.0 H Seg Neuts % (Manual) Baso # (Auto) Lymphocytes % (Manual) Monocytes % (Manual) Eosinophils % (Manual) Basophils % (Manual) Seg Neutrophils # 8.6 H Seg Neutrophils # Man Lymphocytes # (Manual) Monocytes # (Manual) Eosinophils # (Manual) Nucleated RBC % Basophils # (Manual) PT INR APTT Heparin Anti-Xa Level ABG pH POC ABG pO2 ABG pO2 ABG HCO3 ABG O2 Saturation ABG Base Excess POC ABG pCO2 ABG Hemoglobin ABG Oxyhemoglobin ABG Glucose Oxyhemoglobin Sodium 151 H Potassium Chloride Carbon Dioxide 34 H BUN Creatinine 0.7 L Glucose POC Glucose 112 H Lactic Acid Calcium Phosphorus Magnesium AST ALT 59 H Lactate Dehydrogenase Total Bilirubin Direct Bilirubin CK-MB (CK-2) C-Reactive Protein NT-Pro-B Natriuret Pep Total Protein 5.8 L Albumin 2.6 L Arterial Blood Glucose Urine WBC (Auto) Urine Creatinine 01/05/20 01/06/20 01/06/20 16:04 00:23 04:44 WBC RBC 3.36 L Hgb 8.9 L Hct 28.7 L MCHC 31 L RDW 16.9 H MCV MCH 26 L Lymph % (Auto) Saunders % (Auto) 9.4 H Saunders # Eos # Lymph # (Auto) Saunders # (Auto) Eos # (Auto) Seg Neutrophils % Seg Neuts % (Manual) Baso # (Auto) Lymphocytes % (Manual) Monocytes % (Manual) Eosinophils % (Manual) Basophils % (Manual) Seg Neutrophils # Seg Neutrophils # Man Lymphocytes # (Manual) Monocytes # (Manual) Eosinophils # (Manual) Nucleated RBC % Basophils # (Manual) PT INR APTT Heparin Anti-Xa Level ABG pH POC ABG pO2 ABG pO2 ABG HCO3 ABG O2 Saturation ABG Base Excess POC ABG pCO2 ABG Hemoglobin ABG Oxyhemoglobin ABG Glucose Oxyhemoglobin Sodium 151 H Potassium 3.2 L Chloride Carbon Dioxide 34 H BUN Creatinine 0.6 L Glucose POC Glucose 107 H Lactic Acid Calcium Phosphorus Magnesium AST ALT Lactate Dehydrogenase Total Bilirubin Direct Bilirubin CK-MB (CK-2) C-Reactive Protein NT-Pro-B Natriuret Pep Total Protein Albumin Arterial Blood Glucose Urine WBC (Auto) Urine Creatinine 01/06/20 01/06/20 01/06/20 04:44 05:33 12:04 WBC RBC Hgb Hct MCHC RDW MCV MCH Lymph % (Auto) Saunders % (Auto) Saunders # Eos # Lymph # (Auto) Saunders # (Auto) Eos # (Auto) Seg Neutrophils % Seg Neuts % (Manual) Baso # (Auto) Lymphocytes % (Manual) Monocytes % (Manual) Eosinophils % (Manual) Basophils % (Manual) Seg Neutrophils # Seg Neutrophils # Man Lymphocytes # (Manual) Monocytes # (Manual) Eosinophils # (Manual) Nucleated RBC % Basophils # (Manual) PT INR APTT Heparin Anti-Xa Level ABG pH POC ABG pO2 ABG pO2 ABG HCO3 ABG O2 Saturation ABG Base Excess POC ABG pCO2 ABG Hemoglobin ABG Oxyhemoglobin ABG Glucose Oxyhemoglobin Sodium 151 H Potassium 3.4 L Chloride Carbon Dioxide 33 H BUN Creatinine 0.6 L Glucose 118 H POC Glucose 118 H 123 H Lactic Acid Calcium Phosphorus Magnesium AST ALT Lactate Dehydrogenase Total Bilirubin Direct Bilirubin CK-MB (CK-2) C-Reactive Protein NT-Pro-B Natriuret Pep Total Protein 6.2 L Albumin 2.6 L Arterial Blood Glucose Urine WBC (Auto) Urine Creatinine 01/06/20 01/07/20 01/07/20 17:54 00:06 04:10 WBC RBC 3.42 L Hgb 8.9 L Hct 29.0 L MCHC 31 L RDW 17.1 H MCV MCH 26 L Lymph % (Auto) Saunders % (Auto) 8.4 H Saunders # Eos # Lymph # (Auto) Saunders # (Auto) Eos # (Auto) Seg Neutrophils % Seg Neuts % (Manual) Baso # (Auto) Lymphocytes % (Manual) Monocytes % (Manual) Eosinophils % (Manual) Basophils % (Manual) Seg Neutrophils # Seg Neutrophils # Man Lymphocytes # (Manual) Monocytes # (Manual) Eosinophils # (Manual) Nucleated RBC % Basophils # (Manual) PT INR APTT Heparin Anti-Xa Level ABG pH POC ABG pO2 ABG pO2 ABG HCO3 ABG O2 Saturation ABG Base Excess POC ABG pCO2 ABG Hemoglobin ABG Oxyhemoglobin ABG Glucose Oxyhemoglobin Sodium Potassium Chloride Carbon Dioxide BUN Creatinine Glucose POC Glucose 112 H 126 H Lactic Acid Calcium Phosphorus Magnesium AST ALT Lactate Dehydrogenase Total Bilirubin Direct Bilirubin CK-MB (CK-2) C-Reactive Protein NT-Pro-B Natriuret Pep Total Protein Albumin Arterial Blood Glucose Urine WBC (Auto) Urine Creatinine 01/07/20 01/07/20 01/07/20 04:10 05:59 12:27 WBC RBC Hgb Hct MCHC RDW MCV MCH Lymph % (Auto) Saunders % (Auto) Saunders # Eos # Lymph # (Auto) Saunders # (Auto) Eos # (Auto) Seg Neutrophils % Seg Neuts % (Manual) Baso # (Auto) Lymphocytes % (Manual) Monocytes % (Manual) Eosinophils % (Manual) Basophils % (Manual) Seg Neutrophils # Seg Neutrophils # Man Lymphocytes # (Manual) Monocytes # (Manual) Eosinophils # (Manual) Nucleated RBC % Basophils # (Manual) PT INR APTT Heparin Anti-Xa Level ABG pH POC ABG pO2 ABG pO2 ABG HCO3 ABG O2 Saturation ABG Base Excess POC ABG pCO2 ABG Hemoglobin ABG Oxyhemoglobin ABG Glucose Oxyhemoglobin Sodium 153 H Potassium 3.5 L Chloride Carbon Dioxide 34 H BUN Creatinine 0.6 L Glucose 121 H POC Glucose 121 H 126 H Lactic Acid Calcium Phosphorus Magnesium AST ALT Lactate Dehydrogenase Total Bilirubin Direct Bilirubin CK-MB (CK-2) C-Reactive Protein NT-Pro-B Natriuret Pep Total Protein 5.9 L Albumin 2.4 L Arterial Blood Glucose Urine WBC (Auto) Urine Creatinine 01/07/20 01/08/20 01/08/20 18:12 00:03 05:41 WBC RBC Hgb Hct MCHC RDW MCV MCH Lymph % (Auto) Saunders % (Auto) Saunders # Eos # Lymph # (Auto) Saunders # (Auto) Eos # (Auto) Seg Neutrophils % Seg Neuts % (Manual) Baso # (Auto) Lymphocytes % (Manual) Monocytes % (Manual) Eosinophils % (Manual) Basophils % (Manual) Seg Neutrophils # Seg Neutrophils # Man Lymphocytes # (Manual) Monocytes # (Manual) Eosinophils # (Manual) Nucleated RBC % Basophils # (Manual) PT INR APTT Heparin Anti-Xa Level ABG pH POC ABG pO2 ABG pO2 ABG HCO3 ABG O2 Saturation ABG Base Excess POC ABG pCO2 ABG Hemoglobin ABG Oxyhemoglobin ABG Glucose Oxyhemoglobin Sodium Potassium Chloride Carbon Dioxide BUN Creatinine Glucose POC Glucose 124 H 130 H 138 H Lactic Acid Calcium Phosphorus Magnesium AST ALT Lactate Dehydrogenase Total Bilirubin Direct Bilirubin CK-MB (CK-2) C-Reactive Protein NT-Pro-B Natriuret Pep Total Protein Albumin Arterial Blood Glucose Urine WBC (Auto) Urine Creatinine 01/08/20 01/08/20 01/08/20 09:28 11:42 18:21 WBC RBC Hgb Hct MCHC RDW MCV MCH Lymph % (Auto) Saunders % (Auto) Saunders # Eos # Lymph # (Auto) Saunders # (Auto) Eos # (Auto) Seg Neutrophils % Seg Neuts % (Manual) Baso # (Auto) Lymphocytes % (Manual) Monocytes % (Manual) Eosinophils % (Manual) Basophils % (Manual) Seg Neutrophils # Seg Neutrophils # Man Lymphocytes # (Manual) Monocytes # (Manual) Eosinophils # (Manual) Nucleated RBC % Basophils # (Manual) PT INR APTT Heparin Anti-Xa Level ABG pH POC ABG pO2 ABG pO2 ABG HCO3 ABG O2 Saturation ABG Base Excess POC ABG pCO2 ABG Hemoglobin ABG Oxyhemoglobin ABG Glucose Oxyhemoglobin Sodium Potassium Chloride Carbon Dioxide BUN Creatinine Glucose POC Glucose 181 H 150 H 129 H Lactic Acid Calcium Phosphorus Magnesium AST ALT Lactate Dehydrogenase Total Bilirubin Direct Bilirubin CK-MB (CK-2) C-Reactive Protein NT-Pro-B Natriuret Pep Total Protein Albumin Arterial Blood Glucose Urine WBC (Auto) Urine Creatinine 01/08/20 01/08/20 01/09/20 19:25 23:55 04:11 WBC RBC 3.43 L Hgb 8.9 L Hct 28.7 L MCHC 31 L RDW 17.6 H MCV MCH 26 L Lymph % (Auto) Saunders % (Auto) 8.6 H Saunders # Eos # Lymph # (Auto) Saunders # (Auto) Eos # (Auto) Seg Neutrophils % Seg Neuts % (Manual) Baso # (Auto) Lymphocytes % (Manual) Monocytes % (Manual) Eosinophils % (Manual) Basophils % (Manual) Seg Neutrophils # Seg Neutrophils # Man Lymphocytes # (Manual) Monocytes # (Manual) Eosinophils # (Manual) Nucleated RBC % Basophils # (Manual) PT INR APTT Heparin Anti-Xa Level ABG pH POC ABG pO2 ABG pO2 ABG HCO3 ABG O2 Saturation ABG Base Excess POC ABG pCO2 ABG Hemoglobin ABG Oxyhemoglobin ABG Glucose Oxyhemoglobin Sodium Potassium Chloride Carbon Dioxide BUN Creatinine 0.7 L Glucose 117 H POC Glucose 132 H Lactic Acid Calcium Phosphorus Magnesium AST ALT Lactate Dehydrogenase Total Bilirubin Direct Bilirubin CK-MB (CK-2) C-Reactive Protein NT-Pro-B Natriuret Pep Total Protein Albumin Arterial Blood Glucose Urine WBC (Auto) Urine Creatinine 01/09/20 01/09/20 01/09/20 04:11 05:38 22:58 WBC RBC Hgb Hct MCHC RDW MCV MCH Lymph % (Auto) Saunders % (Auto) Saunders # Eos # Lymph # (Auto) Saunders # (Auto) Eos # (Auto) Seg Neutrophils % Seg Neuts % (Manual) Baso # (Auto) Lymphocytes % (Manual) Monocytes % (Manual) Eosinophils % (Manual) Basophils % (Manual) Seg Neutrophils # Seg Neutrophils # Man Lymphocytes # (Manual) Monocytes # (Manual) Eosinophils # (Manual) Nucleated RBC % Basophils # (Manual) PT INR APTT Heparin Anti-Xa Level ABG pH POC ABG pO2 ABG pO2 ABG HCO3 ABG O2 Saturation ABG Base Excess POC ABG pCO2 ABG Hemoglobin ABG Oxyhemoglobin ABG Glucose Oxyhemoglobin Sodium 147 H Potassium 3.3 L D Chloride Carbon Dioxide 32 H BUN Creatinine 0.6 L Glucose 106 H POC Glucose 107 H 113 H Lactic Acid Calcium Phosphorus Magnesium AST ALT Lactate Dehydrogenase Total Bilirubin Direct Bilirubin CK-MB (CK-2) C-Reactive Protein NT-Pro-B Natriuret Pep Total Protein Albumin Arterial Blood Glucose Urine WBC (Auto) Urine Creatinine 01/10/20 01/10/20 01/10/20 04:05 11:36 17:54 WBC RBC Hgb Hct MCHC RDW MCV MCH Lymph % (Auto) Saunders % (Auto) Saunders # Eos # Lymph # (Auto) Saunders # (Auto) Eos # (Auto) Seg Neutrophils % Seg Neuts % (Manual) Baso # (Auto) Lymphocytes % (Manual) Monocytes % (Manual) Eosinophils % (Manual) Basophils % (Manual) Seg Neutrophils # Seg Neutrophils # Man Lymphocytes # (Manual) Monocytes # (Manual) Eosinophils # (Manual) Nucleated RBC % Basophils # (Manual) PT INR APTT Heparin Anti-Xa Level ABG pH POC ABG pO2 ABG pO2 ABG HCO3 ABG O2 Saturation ABG Base Excess POC ABG pCO2 ABG Hemoglobin ABG Oxyhemoglobin ABG Glucose Oxyhemoglobin Sodium Potassium Chloride Carbon Dioxide BUN Creatinine 0.7 L Glucose 110 H POC Glucose 129 H 117 H Lactic Acid Calcium Phosphorus Magnesium AST ALT Lactate Dehydrogenase Total Bilirubin Direct Bilirubin CK-MB (CK-2) C-Reactive Protein NT-Pro-B Natriuret Pep Total Protein Albumin Arterial Blood Glucose Urine WBC (Auto) Urine Creatinine 01/10/20 01/11/20 01/11/20 23:52 03:19 12:09 WBC RBC Hgb Hct MCHC RDW MCV MCH Lymph % (Auto) Saunders % (Auto) Saunders # Eos # Lymph # (Auto) Saunders # (Auto) Eos # (Auto) Seg Neutrophils % Seg Neuts % (Manual) Baso # (Auto) Lymphocytes % (Manual) Monocytes % (Manual) Eosinophils % (Manual) Basophils % (Manual) Seg Neutrophils # Seg Neutrophils # Man Lymphocytes # (Manual) Monocytes # (Manual) Eosinophils # (Manual) Nucleated RBC % Basophils # (Manual) PT INR APTT Heparin Anti-Xa Level ABG pH POC ABG pO2 ABG pO2 ABG HCO3 ABG O2 Saturation ABG Base Excess POC ABG pCO2 ABG Hemoglobin ABG Oxyhemoglobin ABG Glucose Oxyhemoglobin Sodium Potassium Chloride Carbon Dioxide BUN Creatinine Glucose POC Glucose 117 H 136 H 115 H Lactic Acid Calcium Phosphorus Magnesium AST ALT Lactate Dehydrogenase Total Bilirubin Direct Bilirubin CK-MB (CK-2) C-Reactive Protein NT-Pro-B Natriuret Pep Total Protein Albumin Arterial Blood Glucose Urine WBC (Auto) Urine Creatinine 01/11/20 01/11/20 01/12/20 18:27 23:28 00:23 WBC RBC Hgb 9.8 L Hct 31.6 L MCHC 31 L RDW 17.8 H MCV 83 L MCH 26 L Lymph % (Auto) Saunders % (Auto) 8.0 H Saunders # Eos # Lymph # (Auto) Saunders # (Auto) Eos # (Auto) Seg Neutrophils % Seg Neuts % (Manual) Baso # (Auto) Lymphocytes % (Manual) Monocytes % (Manual) Eosinophils % (Manual) Basophils % (Manual) Seg Neutrophils # Seg Neutrophils # Man Lymphocytes # (Manual) Monocytes # (Manual) Eosinophils # (Manual) Nucleated RBC % Basophils # (Manual) PT INR APTT Heparin Anti-Xa Level ABG pH POC ABG pO2 ABG pO2 ABG HCO3 ABG O2 Saturation ABG Base Excess POC ABG pCO2 ABG Hemoglobin ABG Oxyhemoglobin ABG Glucose Oxyhemoglobin Sodium Potassium Chloride Carbon Dioxide BUN Creatinine Glucose POC Glucose 118 H 122 H Lactic Acid Calcium Phosphorus Magnesium AST ALT Lactate Dehydrogenase Total Bilirubin Direct Bilirubin CK-MB (CK-2) C-Reactive Protein NT-Pro-B Natriuret Pep Total Protein Albumin Arterial Blood Glucose Urine WBC (Auto) Urine Creatinine 01/12/20 01/12/20 01/12/20 00:23 04:18 04:18 WBC RBC Hgb 9.6 L Hct 30.9 L MCHC 31 L RDW 17.3 H MCV 81 L MCH 25 L Lymph % (Auto) Saunders % (Auto) Saunders # Eos # Lymph # (Auto) Saunders # (Auto) Eos # (Auto) Seg Neutrophils % Seg Neuts % (Manual) Baso # (Auto) Lymphocytes % (Manual) Monocytes % (Manual) Eosinophils % (Manual) Basophils % (Manual) Seg Neutrophils # Seg Neutrophils # Man Lymphocytes # (Manual) Monocytes # (Manual) Eosinophils # (Manual) Nucleated RBC % Basophils # (Manual) PT INR APTT Heparin Anti-Xa Level ABG pH POC ABG pO2 ABG pO2 ABG HCO3 ABG O2 Saturation ABG Base Excess POC ABG pCO2 ABG Hemoglobin ABG Oxyhemoglobin ABG Glucose Oxyhemoglobin Sodium Potassium Chloride Carbon Dioxide BUN Creatinine 0.7 L 0.7 L Glucose 111 H 108 H POC Glucose Lactic Acid Calcium Phosphorus Magnesium AST ALT Lactate Dehydrogenase Total Bilirubin Direct Bilirubin CK-MB (CK-2) C-Reactive Protein NT-Pro-B Natriuret Pep Total Protein Albumin 2.6 L Arterial Blood Glucose Urine WBC (Auto) Urine Creatinine 01/12/20 01/12/20 01/12/20 06:03 12:27 13:58 WBC RBC Hgb Hct MCHC RDW MCV MCH Lymph % (Auto) Saunders % (Auto) Saunders # Eos # Lymph # (Auto) Saunders # (Auto) Eos # (Auto) Seg Neutrophils % Seg Neuts % (Manual) Baso # (Auto) Lymphocytes % (Manual) Monocytes % (Manual) Eosinophils % (Manual) Basophils % (Manual) Seg Neutrophils # Seg Neutrophils # Man Lymphocytes # (Manual) Monocytes # (Manual) Eosinophils # (Manual) Nucleated RBC % Basophils # (Manual) PT INR APTT Heparin Anti-Xa Level ABG pH 7.453 H POC ABG pO2 76.6 L ABG pO2 ABG HCO3 ABG O2 Saturation ABG Base Excess POC ABG pCO2 ABG Hemoglobin 10.3 L ABG Oxyhemoglobin ABG Glucose 99 H Oxyhemoglobin Sodium Potassium Chloride Carbon Dioxide BUN Creatinine Glucose POC Glucose 128 H 121 H Lactic Acid Calcium Phosphorus Magnesium AST ALT Lactate Dehydrogenase Total Bilirubin Direct Bilirubin CK-MB (CK-2) C-Reactive Protein NT-Pro-B Natriuret Pep Total Protein Albumin Arterial Blood Glucose 99 H Urine WBC (Auto) Urine Creatinine 01/12/20 01/13/20 01/13/20 18:24 12:01 17:46 WBC RBC Hgb Hct MCHC RDW MCV MCH Lymph % (Auto) Saunders % (Auto) Saunders # Eos # Lymph # (Auto) Saunders # (Auto) Eos # (Auto) Seg Neutrophils % Seg Neuts % (Manual) Baso # (Auto) Lymphocytes % (Manual) Monocytes % (Manual) Eosinophils % (Manual) Basophils % (Manual) Seg Neutrophils # Seg Neutrophils # Man Lymphocytes # (Manual) Monocytes # (Manual) Eosinophils # (Manual) Nucleated RBC % Basophils # (Manual) PT INR APTT Heparin Anti-Xa Level ABG pH POC ABG pO2 ABG pO2 ABG HCO3 ABG O2 Saturation ABG Base Excess POC ABG pCO2 ABG Hemoglobin ABG Oxyhemoglobin ABG Glucose Oxyhemoglobin Sodium Potassium Chloride Carbon Dioxide BUN Creatinine Glucose POC Glucose 119 H 107 H 124 H Lactic Acid Calcium Phosphorus Magnesium AST ALT Lactate Dehydrogenase Total Bilirubin Direct Bilirubin CK-MB (CK-2) C-Reactive Protein NT-Pro-B Natriuret Pep Total Protein Albumin Arterial Blood Glucose Urine WBC (Auto) Urine Creatinine 01/13/20 01/14/20 01/14/20 20:40 00:10 05:33 WBC RBC Hgb Hct MCHC RDW MCV MCH Lymph % (Auto) Saunders % (Auto) Saunders # Eos # Lymph # (Auto) Saunders # (Auto) Eos # (Auto) Seg Neutrophils % Seg Neuts % (Manual) Baso # (Auto) Lymphocytes % (Manual) Monocytes % (Manual) Eosinophils % (Manual) Basophils % (Manual) Seg Neutrophils # Seg Neutrophils # Man Lymphocytes # (Manual) Monocytes # (Manual) Eosinophils # (Manual) Nucleated RBC % Basophils # (Manual) PT INR APTT Heparin Anti-Xa Level ABG pH POC ABG pO2 ABG pO2 65.3 L ABG HCO3 31.8 H ABG O2 Saturation 93.5 L ABG Base Excess 6.7 H POC ABG pCO2 ABG Hemoglobin 13.3 L ABG Oxyhemoglobin ABG Glucose Oxyhemoglobin 90.9 L Sodium Potassium Chloride Carbon Dioxide BUN Creatinine Glucose POC Glucose 111 H 111 H Lactic Acid Calcium Phosphorus Magnesium AST ALT Lactate Dehydrogenase Total Bilirubin Direct Bilirubin CK-MB (CK-2) C-Reactive Protein NT-Pro-B Natriuret Pep Total Protein Albumin Arterial Blood Glucose Urine WBC (Auto) Urine Creatinine 01/14/20 01/14/20 01/14/20 12:10 16:14 16:14 WBC RBC Hgb 10.6 L Hct 34.2 L MCHC 31 L RDW 18.3 H MCV 83 L MCH 26 L Lymph % (Auto) Saunders % (Auto) 7.4 H Saunders # Eos # Lymph # (Auto) Saunders # (Auto) Eos # (Auto) Seg Neutrophils % 71.9 H Seg Neuts % (Manual) Baso # (Auto) Lymphocytes % (Manual) Monocytes % (Manual) Eosinophils % (Manual) Basophils % (Manual) Seg Neutrophils # Seg Neutrophils # Man Lymphocytes # (Manual) Monocytes # (Manual) Eosinophils # (Manual) Nucleated RBC % Basophils # (Manual) PT INR APTT Heparin Anti-Xa Level ABG pH POC ABG pO2 ABG pO2 ABG HCO3 ABG O2 Saturation ABG Base Excess POC ABG pCO2 ABG Hemoglobin ABG Oxyhemoglobin ABG Glucose Oxyhemoglobin Sodium Potassium Chloride Carbon Dioxide 31 H BUN Creatinine 0.6 L Glucose 131 H POC Glucose 139 H Lactic Acid Calcium Phosphorus Magnesium AST ALT Lactate Dehydrogenase Total Bilirubin Direct Bilirubin CK-MB (CK-2) C-Reactive Protein NT-Pro-B Natriuret Pep Total Protein Albumin Arterial Blood Glucose Urine WBC (Auto) Urine Creatinine 01/14/20 01/15/20 01/15/20 18:05 00:52 05:35 WBC RBC Hgb Hct MCHC RDW MCV MCH Lymph % (Auto) Saunders % (Auto) Saunders # Eos # Lymph # (Auto) Saunders # (Auto) Eos # (Auto) Seg Neutrophils % Seg Neuts % (Manual) Baso # (Auto) Lymphocytes % (Manual) Monocytes % (Manual) Eosinophils % (Manual) Basophils % (Manual) Seg Neutrophils # Seg Neutrophils # Man Lymphocytes # (Manual) Monocytes # (Manual) Eosinophils # (Manual) Nucleated RBC % Basophils # (Manual) PT INR APTT Heparin Anti-Xa Level ABG pH POC ABG pO2 ABG pO2 ABG HCO3 ABG O2 Saturation ABG Base Excess POC ABG pCO2 ABG Hemoglobin ABG Oxyhemoglobin ABG Glucose Oxyhemoglobin Sodium Potassium Chloride Carbon Dioxide BUN Creatinine Glucose POC Glucose 147 H 140 H 159 H Lactic Acid Calcium Phosphorus Magnesium AST ALT Lactate Dehydrogenase Total Bilirubin Direct Bilirubin CK-MB (CK-2) C-Reactive Protein NT-Pro-B Natriuret Pep Total Protein Albumin Arterial Blood Glucose Urine WBC (Auto) Urine Creatinine 01/15/20 01/15/20 01/16/20 12:52 17:43 00:32 WBC RBC Hgb Hct MCHC RDW MCV MCH Lymph % (Auto) Saunders % (Auto) Saunders # Eos # Lymph # (Auto) Saunders # (Auto) Eos # (Auto) Seg Neutrophils % Seg Neuts % (Manual) Baso # (Auto) Lymphocytes % (Manual) Monocytes % (Manual) Eosinophils % (Manual) Basophils % (Manual) Seg Neutrophils # Seg Neutrophils # Man Lymphocytes # (Manual) Monocytes # (Manual) Eosinophils # (Manual) Nucleated RBC % Basophils # (Manual) PT INR APTT Heparin Anti-Xa Level ABG pH POC ABG pO2 ABG pO2 ABG HCO3 ABG O2 Saturation ABG Base Excess POC ABG pCO2 ABG Hemoglobin ABG Oxyhemoglobin ABG Glucose Oxyhemoglobin Sodium Potassium Chloride Carbon Dioxide BUN Creatinine Glucose POC Glucose 164 H 167 H 153 H Lactic Acid Calcium Phosphorus Magnesium AST ALT Lactate Dehydrogenase Total Bilirubin Direct Bilirubin CK-MB (CK-2) C-Reactive Protein NT-Pro-B Natriuret Pep Total Protein Albumin Arterial Blood Glucose Urine WBC (Auto) Urine Creatinine 01/16/20 01/16/20 01/17/20 05:46 11:48 06:38 WBC RBC Hgb Hct MCHC RDW MCV MCH Lymph % (Auto) Saunders % (Auto) Saunders # Eos # Lymph # (Auto) Saunders # (Auto) Eos # (Auto) Seg Neutrophils % Seg Neuts % (Manual) Baso # (Auto) Lymphocytes % (Manual) Monocytes % (Manual) Eosinophils % (Manual) Basophils % (Manual) Seg Neutrophils # Seg Neutrophils # Man Lymphocytes # (Manual) Monocytes # (Manual) Eosinophils # (Manual) Nucleated RBC % Basophils # (Manual) PT INR APTT Heparin Anti-Xa Level ABG pH POC ABG pO2 ABG pO2 ABG HCO3 ABG O2 Saturation ABG Base Excess POC ABG pCO2 ABG Hemoglobin ABG Oxyhemoglobin ABG Glucose Oxyhemoglobin Sodium Potassium Chloride Carbon Dioxide BUN Creatinine Glucose POC Glucose 163 H 155 H 116 H Lactic Acid Calcium Phosphorus Magnesium AST ALT Lactate Dehydrogenase Total Bilirubin Direct Bilirubin CK-MB (CK-2) C-Reactive Protein NT-Pro-B Natriuret Pep Total Protein Albumin Arterial Blood Glucose Urine WBC (Auto) Urine Creatinine 01/17/20 01/17/20 01/18/20 11:36 17:43 00:12 WBC RBC Hgb Hct MCHC RDW MCV MCH Lymph % (Auto) Saunders % (Auto) Saunders # Eos # Lymph # (Auto) Saunders # (Auto) Eos # (Auto) Seg Neutrophils % Seg Neuts % (Manual) Baso # (Auto) Lymphocytes % (Manual) Monocytes % (Manual) Eosinophils % (Manual) Basophils % (Manual) Seg Neutrophils # Seg Neutrophils # Man Lymphocytes # (Manual) Monocytes # (Manual) Eosinophils # (Manual) Nucleated RBC % Basophils # (Manual) PT INR APTT Heparin Anti-Xa Level ABG pH POC ABG pO2 ABG pO2 ABG HCO3 ABG O2 Saturation ABG Base Excess POC ABG pCO2 ABG Hemoglobin ABG Oxyhemoglobin ABG Glucose Oxyhemoglobin Sodium Potassium Chloride Carbon Dioxide BUN Creatinine Glucose POC Glucose 110 H 134 H 108 H Lactic Acid Calcium Phosphorus Magnesium AST ALT Lactate Dehydrogenase Total Bilirubin Direct Bilirubin CK-MB (CK-2) C-Reactive Protein NT-Pro-B Natriuret Pep Total Protein Albumin Arterial Blood Glucose Urine WBC (Auto) Urine Creatinine 01/18/20 01/18/20 01/18/20 05:37 06:46 06:46 WBC RBC Hgb 10.1 L Hct 32.2 L MCHC 31 L RDW 18.1 H MCV 81 L MCH 25 L Lymph % (Auto) Saunders % (Auto) Saunders # Eos # Lymph # (Auto) Saunders # (Auto) Eos # (Auto) Seg Neutrophils % 71.9 H Seg Neuts % (Manual) Baso # (Auto) Lymphocytes % (Manual) Monocytes % (Manual) Eosinophils % (Manual) Basophils % (Manual) Seg Neutrophils # Seg Neutrophils # Man Lymphocytes # (Manual) Monocytes # (Manual) Eosinophils # (Manual) Nucleated RBC % Basophils # (Manual) PT INR APTT Heparin Anti-Xa Level ABG pH POC ABG pO2 ABG pO2 ABG HCO3 ABG O2 Saturation ABG Base Excess POC ABG pCO2 ABG Hemoglobin ABG Oxyhemoglobin ABG Glucose Oxyhemoglobin Sodium Potassium Chloride Carbon Dioxide BUN Creatinine 0.7 L Glucose 155 H POC Glucose 168 H Lactic Acid Calcium Phosphorus Magnesium AST ALT Lactate Dehydrogenase Total Bilirubin Direct Bilirubin CK-MB (CK-2) C-Reactive Protein NT-Pro-B Natriuret Pep Total Protein Albumin Arterial Blood Glucose Urine WBC (Auto) Urine Creatinine 01/18/20 01/18/20 01/18/20 12:05 17:14 23:28 WBC RBC Hgb Hct MCHC RDW MCV MCH Lymph % (Auto) Saunders % (Auto) Saunders # Eos # Lymph # (Auto) Saunders # (Auto) Eos # (Auto) Seg Neutrophils % Seg Neuts % (Manual) Baso # (Auto) Lymphocytes % (Manual) Monocytes % (Manual) Eosinophils % (Manual) Basophils % (Manual) Seg Neutrophils # Seg Neutrophils # Man Lymphocytes # (Manual) Monocytes # (Manual) Eosinophils # (Manual) Nucleated RBC % Basophils # (Manual) PT INR APTT Heparin Anti-Xa Level ABG pH POC ABG pO2 ABG pO2 ABG HCO3 ABG O2 Saturation ABG Base Excess POC ABG pCO2 ABG Hemoglobin ABG Oxyhemoglobin ABG Glucose Oxyhemoglobin Sodium Potassium Chloride Carbon Dioxide BUN Creatinine Glucose POC Glucose 128 H 126 H 128 H Lactic Acid Calcium Phosphorus Magnesium AST ALT Lactate Dehydrogenase Total Bilirubin Direct Bilirubin CK-MB (CK-2) C-Reactive Protein NT-Pro-B Natriuret Pep Total Protein Albumin Arterial Blood Glucose Urine WBC (Auto) Urine Creatinine 01/19/20 01/19/20 01/19/20 05:39 12:33 17:36 WBC RBC Hgb Hct MCHC RDW MCV MCH Lymph % (Auto) Saunders % (Auto) Saunders # Eos # Lymph # (Auto) Saunders # (Auto) Eos # (Auto) Seg Neutrophils % Seg Neuts % (Manual) Baso # (Auto) Lymphocytes % (Manual) Monocytes % (Manual) Eosinophils % (Manual) Basophils % (Manual) Seg Neutrophils # Seg Neutrophils # Man Lymphocytes # (Manual) Monocytes # (Manual) Eosinophils # (Manual) Nucleated RBC % Basophils # (Manual) PT INR APTT Heparin Anti-Xa Level ABG pH POC ABG pO2 ABG pO2 ABG HCO3 ABG O2 Saturation ABG Base Excess POC ABG pCO2 ABG Hemoglobin ABG Oxyhemoglobin ABG Glucose Oxyhemoglobin Sodium Potassium Chloride Carbon Dioxide BUN Creatinine Glucose POC Glucose 164 H 171 H 152 H Lactic Acid Calcium Phosphorus Magnesium AST ALT Lactate Dehydrogenase Total Bilirubin Direct Bilirubin CK-MB (CK-2) C-Reactive Protein NT-Pro-B Natriuret Pep Total Protein Albumin Arterial Blood Glucose Urine WBC (Auto) Urine Creatinine 01/20/20 01/20/20 01/20/20 00:12 05:20 05:35 WBC RBC Hgb 9.2 L Hct 29.4 L MCHC 31 L RDW 17.9 H MCV 81 L MCH 25 L Lymph % (Auto) Saunders % (Auto) Saunders # Eos # Lymph # (Auto) Saunders # (Auto) Eos # (Auto) Seg Neutrophils % Seg Neuts % (Manual) Baso # (Auto) Lymphocytes % (Manual) Monocytes % (Manual) Eosinophils % (Manual) Basophils % (Manual) Seg Neutrophils # Seg Neutrophils # Man Lymphocytes # (Manual) Monocytes # (Manual) Eosinophils # (Manual) Nucleated RBC % Basophils # (Manual) PT INR APTT Heparin Anti-Xa Level ABG pH POC ABG pO2 ABG pO2 ABG HCO3 ABG O2 Saturation ABG Base Excess POC ABG pCO2 ABG Hemoglobin ABG Oxyhemoglobin ABG Glucose Oxyhemoglobin Sodium Potassium Chloride Carbon Dioxide BUN Creatinine Glucose POC Glucose 120 H 136 H Lactic Acid Calcium Phosphorus Magnesium AST ALT Lactate Dehydrogenase Total Bilirubin Direct Bilirubin CK-MB (CK-2) C-Reactive Protein NT-Pro-B Natriuret Pep Total Protein Albumin Arterial Blood Glucose Urine WBC (Auto) Urine Creatinine 01/20/20 01/20/20 01/20/20 05:40 11:58 14:55 WBC RBC Hgb 9.0 L Hct 28.3 L MCHC RDW MCV MCH Lymph % (Auto) Saunders % (Auto) Saunders # Eos # Lymph # (Auto) Saunders # (Auto) Eos # (Auto) Seg Neutrophils % Seg Neuts % (Manual) Baso # (Auto) Lymphocytes % (Manual) Monocytes % (Manual) Eosinophils % (Manual) Basophils % (Manual) Seg Neutrophils # Seg Neutrophils # Man Lymphocytes # (Manual) Monocytes # (Manual) Eosinophils # (Manual) Nucleated RBC % Basophils # (Manual) PT INR APTT Heparin Anti-Xa Level ABG pH POC ABG pO2 ABG pO2 ABG HCO3 ABG O2 Saturation ABG Base Excess POC ABG pCO2 ABG Hemoglobin ABG Oxyhemoglobin ABG Glucose Oxyhemoglobin Sodium Potassium Chloride Carbon Dioxide 32 H BUN 22 H Creatinine 0.7 L Glucose 128 H POC Glucose 152 H Lactic Acid Calcium Phosphorus Magnesium AST ALT Lactate Dehydrogenase Total Bilirubin Direct Bilirubin CK-MB (CK-2) C-Reactive Protein NT-Pro-B Natriuret Pep Total Protein Albumin Arterial Blood Glucose Urine WBC (Auto) Urine Creatinine 01/20/20 01/20/20 01/20/20 14:55 18:14 21:35 WBC RBC Hgb Hct MCHC RDW MCV MCH Lymph % (Auto) Saunders % (Auto) Saunders # Eos # Lymph # (Auto) Saunders # (Auto) Eos # (Auto) Seg Neutrophils % Seg Neuts % (Manual) Baso # (Auto) Lymphocytes % (Manual) Monocytes % (Manual) Eosinophils % (Manual) Basophils % (Manual) Seg Neutrophils # Seg Neutrophils # Man Lymphocytes # (Manual) Monocytes # (Manual) Eosinophils # (Manual) Nucleated RBC % Basophils # (Manual) PT 20.4 H INR 1.72 H APTT 40.6 H Heparin Anti-Xa Level > 2.00 H ABG pH POC ABG pO2 ABG pO2 ABG HCO3 ABG O2 Saturation ABG Base Excess POC ABG pCO2 ABG Hemoglobin ABG Oxyhemoglobin ABG Glucose Oxyhemoglobin Sodium Potassium Chloride Carbon Dioxide BUN Creatinine Glucose POC Glucose 150 H Lactic Acid Calcium Phosphorus Magnesium AST ALT Lactate Dehydrogenase Total Bilirubin Direct Bilirubin CK-MB (CK-2) C-Reactive Protein NT-Pro-B Natriuret Pep Total Protein Albumin Arterial Blood Glucose Urine WBC (Auto) Urine Creatinine 01/21/20 01/21/20 01/21/20 00:30 05:47 05:59 WBC RBC Hgb Hct MCHC RDW MCV MCH Lymph % (Auto) Saunders % (Auto) Saunders # Eos # Lymph # (Auto) Saunders # (Auto) Eos # (Auto) Seg Neutrophils % Seg Neuts % (Manual) Baso # (Auto) Lymphocytes % (Manual) Monocytes % (Manual) Eosinophils % (Manual) Basophils % (Manual) Seg Neutrophils # Seg Neutrophils # Man Lymphocytes # (Manual) Monocytes # (Manual) Eosinophils # (Manual) Nucleated RBC % Basophils # (Manual) PT INR APTT Heparin Anti-Xa Level 1.93 H ABG pH POC ABG pO2 ABG pO2 ABG HCO3 ABG O2 Saturation ABG Base Excess POC ABG pCO2 ABG Hemoglobin ABG Oxyhemoglobin ABG Glucose Oxyhemoglobin Sodium Potassium Chloride Carbon Dioxide BUN Creatinine Glucose POC Glucose 126 H 148 H Lactic Acid Calcium Phosphorus Magnesium AST ALT Lactate Dehydrogenase Total Bilirubin Direct Bilirubin CK-MB (CK-2) C-Reactive Protein NT-Pro-B Natriuret Pep Total Protein Albumin Arterial Blood Glucose Urine WBC (Auto) Urine Creatinine 01/21/20 01/21/20 01/21/20 12:32 18:20 23:54 WBC RBC Hgb Hct MCHC RDW MCV MCH Lymph % (Auto) Saunders % (Auto) Saunders # Eos # Lymph # (Auto) Saunders # (Auto) Eos # (Auto) Seg Neutrophils % Seg Neuts % (Manual) Baso # (Auto) Lymphocytes % (Manual) Monocytes % (Manual) Eosinophils % (Manual) Basophils % (Manual) Seg Neutrophils # Seg Neutrophils # Man Lymphocytes # (Manual) Monocytes # (Manual) Eosinophils # (Manual) Nucleated RBC % Basophils # (Manual) PT INR APTT Heparin Anti-Xa Level 1.28 H ABG pH POC ABG pO2 ABG pO2 ABG HCO3 ABG O2 Saturation ABG Base Excess POC ABG pCO2 ABG Hemoglobin ABG Oxyhemoglobin ABG Glucose Oxyhemoglobin Sodium Potassium Chloride Carbon Dioxide BUN Creatinine Glucose POC Glucose 112 H 146 H Lactic Acid Calcium Phosphorus Magnesium AST ALT Lactate Dehydrogenase Total Bilirubin Direct Bilirubin CK-MB (CK-2) C-Reactive Protein NT-Pro-B Natriuret Pep Total Protein Albumin Arterial Blood Glucose Urine WBC (Auto) Urine Creatinine 01/22/20 01/22/20 01/22/20 04:45 04:45 05:48 WBC RBC Hgb 9.3 L Hct 29.0 L MCHC RDW MCV MCH Lymph % (Auto) Saunders % (Auto) Saunders # Eos # Lymph # (Auto) Saunders # (Auto) Eos # (Auto) Seg Neutrophils % Seg Neuts % (Manual) Baso # (Auto) Lymphocytes % (Manual) Monocytes % (Manual) Eosinophils % (Manual) Basophils % (Manual) Seg Neutrophils # Seg Neutrophils # Man Lymphocytes # (Manual) Monocytes # (Manual) Eosinophils # (Manual) Nucleated RBC % Basophils # (Manual) PT INR APTT Heparin Anti-Xa Level 1.34 H ABG pH POC ABG pO2 ABG pO2 ABG HCO3 ABG O2 Saturation ABG Base Excess POC ABG pCO2 ABG Hemoglobin ABG Oxyhemoglobin ABG Glucose Oxyhemoglobin Sodium Potassium Chloride Carbon Dioxide BUN Creatinine Glucose POC Glucose 142 H Lactic Acid Calcium Phosphorus Magnesium AST ALT Lactate Dehydrogenase Total Bilirubin Direct Bilirubin CK-MB (CK-2) C-Reactive Protein NT-Pro-B Natriuret Pep Total Protein Albumin Arterial Blood Glucose Urine WBC (Auto) Urine Creatinine 01/22/20 01/22/20 01/22/20 08:09 08:22 09:58 WBC RBC Hgb Hct MCHC RDW MCV MCH Lymph % (Auto) Saunders % (Auto) Saunders # Eos # Lymph # (Auto) Saunders # (Auto) Eos # (Auto) Seg Neutrophils % Seg Neuts % (Manual) Baso # (Auto) Lymphocytes % (Manual) Monocytes % (Manual) Eosinophils % (Manual) Basophils % (Manual) Seg Neutrophils # Seg Neutrophils # Man Lymphocytes # (Manual) Monocytes # (Manual) Eosinophils # (Manual) Nucleated RBC % Basophils # (Manual) PT 16.9 H INR 1.34 H APTT Heparin Anti-Xa Level ABG pH POC ABG pO2 ABG pO2 ABG HCO3 ABG O2 Saturation ABG Base Excess POC ABG pCO2 ABG Hemoglobin ABG Oxyhemoglobin ABG Glucose Oxyhemoglobin Sodium Potassium Chloride 97.8 L Carbon Dioxide BUN 29 H Creatinine Glucose 128 H POC Glucose 131 H Lactic Acid Calcium Phosphorus Magnesium AST ALT Lactate Dehydrogenase Total Bilirubin Direct Bilirubin CK-MB (CK-2) C-Reactive Protein NT-Pro-B Natriuret Pep Total Protein Albumin Arterial Blood Glucose Urine WBC (Auto) Urine Creatinine 01/22/20 01/22/20 01/22/20 12:44 16:13 18:18 WBC RBC Hgb Hct MCHC RDW MCV MCH Lymph % (Auto) Saunders % (Auto) Saunders # Eos # Lymph # (Auto) Saunders # (Auto) Eos # (Auto) Seg Neutrophils % Seg Neuts % (Manual) Baso # (Auto) Lymphocytes % (Manual) Monocytes % (Manual) Eosinophils % (Manual) Basophils % (Manual) Seg Neutrophils # Seg Neutrophils # Man Lymphocytes # (Manual) Monocytes # (Manual) Eosinophils # (Manual) Nucleated RBC % Basophils # (Manual) PT INR APTT Heparin Anti-Xa Level ABG pH POC ABG pO2 ABG pO2 ABG HCO3 ABG O2 Saturation ABG Base Excess POC ABG pCO2 ABG Hemoglobin ABG Oxyhemoglobin ABG Glucose Oxyhemoglobin Sodium Potassium Chloride Carbon Dioxide BUN Creatinine Glucose POC Glucose 156 H 133 H 155 H Lactic Acid Calcium Phosphorus Magnesium AST ALT Lactate Dehydrogenase Total Bilirubin Direct Bilirubin CK-MB (CK-2) C-Reactive Protein NT-Pro-B Natriuret Pep Total Protein Albumin Arterial Blood Glucose Urine WBC (Auto) Urine Creatinine 01/22/20 01/23/20 01/23/20 23:22 05:37 12:59 WBC RBC Hgb Hct MCHC RDW MCV MCH Lymph % (Auto) Saunders % (Auto) Saunders # Eos # Lymph # (Auto) Saunders # (Auto) Eos # (Auto) Seg Neutrophils % Seg Neuts % (Manual) Baso # (Auto) Lymphocytes % (Manual) Monocytes % (Manual) Eosinophils % (Manual) Basophils % (Manual) Seg Neutrophils # Seg Neutrophils # Man Lymphocytes # (Manual) Monocytes # (Manual) Eosinophils # (Manual) Nucleated RBC % Basophils # (Manual) PT INR APTT Heparin Anti-Xa Level ABG pH POC ABG pO2 ABG pO2 ABG HCO3 ABG O2 Saturation ABG Base Excess POC ABG pCO2 ABG Hemoglobin ABG Oxyhemoglobin ABG Glucose Oxyhemoglobin Sodium Potassium Chloride Carbon Dioxide BUN Creatinine Glucose POC Glucose 148 H 163 H 175 H Lactic Acid Calcium Phosphorus Magnesium AST ALT Lactate Dehydrogenase Total Bilirubin Direct Bilirubin CK-MB (CK-2) C-Reactive Protein NT-Pro-B Natriuret Pep Total Protein Albumin Arterial Blood Glucose Urine WBC (Auto) Urine Creatinine 01/23/20 01/23/20 01/24/20 17:28 23:56 04:30 WBC RBC 3.46 L Hgb 8.8 L Hct 27.8 L MCHC RDW 18.2 H MCV 81 L MCH 25 L Lymph % (Auto) Saunders % (Auto) 7.8 H Saunders # Eos # Lymph # (Auto) Saunders # (Auto) Eos # (Auto) Seg Neutrophils % Seg Neuts % (Manual) Baso # (Auto) Lymphocytes % (Manual) Monocytes % (Manual) Eosinophils % (Manual) Basophils % (Manual) Seg Neutrophils # Seg Neutrophils # Man Lymphocytes # (Manual) Monocytes # (Manual) Eosinophils # (Manual) Nucleated RBC % Basophils # (Manual) PT INR APTT Heparin Anti-Xa Level ABG pH POC ABG pO2 ABG pO2 ABG HCO3 ABG O2 Saturation ABG Base Excess POC ABG pCO2 ABG Hemoglobin ABG Oxyhemoglobin ABG Glucose Oxyhemoglobin Sodium Potassium Chloride Carbon Dioxide BUN Creatinine Glucose POC Glucose 165 H 177 H Lactic Acid Calcium Phosphorus Magnesium AST ALT Lactate Dehydrogenase Total Bilirubin Direct Bilirubin CK-MB (CK-2) C-Reactive Protein NT-Pro-B Natriuret Pep Total Protein Albumin Arterial Blood Glucose Urine WBC (Auto) Urine Creatinine 01/24/20 01/24/20 01/24/20 04:30 07:18 12:06 WBC RBC Hgb Hct MCHC RDW MCV MCH Lymph % (Auto) Saunders % (Auto) Saunders # Eos # Lymph # (Auto) Saunders # (Auto) Eos # (Auto) Seg Neutrophils % Seg Neuts % (Manual) Baso # (Auto) Lymphocytes % (Manual) Monocytes % (Manual) Eosinophils % (Manual) Basophils % (Manual) Seg Neutrophils # Seg Neutrophils # Man Lymphocytes # (Manual) Monocytes # (Manual) Eosinophils # (Manual) Nucleated RBC % Basophils # (Manual) PT INR APTT Heparin Anti-Xa Level ABG pH POC ABG pO2 ABG pO2 ABG HCO3 ABG O2 Saturation ABG Base Excess POC ABG pCO2 ABG Hemoglobin ABG Oxyhemoglobin ABG Glucose Oxyhemoglobin Sodium Potassium Chloride 97.9 L Carbon Dioxide BUN 31 H Creatinine Glucose 146 H POC Glucose 151 H 133 H Lactic Acid Calcium Phosphorus Magnesium AST ALT Lactate Dehydrogenase Total Bilirubin Direct Bilirubin CK-MB (CK-2) C-Reactive Protein NT-Pro-B Natriuret Pep Total Protein Albumin Arterial Blood Glucose Urine WBC (Auto) Urine Creatinine 01/24/20 01/25/20 01/25/20 17:36 00:08 04:25 WBC RBC 3.50 L Hgb 8.7 L Hct 27.9 L MCHC 31 L RDW 18.2 H MCV 80 L MCH 25 L Lymph % (Auto) Saunders % (Auto) 8.5 H Saunders # Eos # Lymph # (Auto) Saunders # (Auto) Eos # (Auto) Seg Neutrophils % Seg Neuts % (Manual) Baso # (Auto) Lymphocytes % (Manual) Monocytes % (Manual) Eosinophils % (Manual) Basophils % (Manual) Seg Neutrophils # Seg Neutrophils # Man Lymphocytes # (Manual) Monocytes # (Manual) Eosinophils # (Manual) Nucleated RBC % Basophils # (Manual) PT INR APTT Heparin Anti-Xa Level ABG pH POC ABG pO2 ABG pO2 ABG HCO3 ABG O2 Saturation ABG Base Excess POC ABG pCO2 ABG Hemoglobin ABG Oxyhemoglobin ABG Glucose Oxyhemoglobin Sodium Potassium Chloride Carbon Dioxide BUN Creatinine Glucose POC Glucose 133 H 129 H Lactic Acid Calcium Phosphorus Magnesium AST ALT Lactate Dehydrogenase Total Bilirubin Direct Bilirubin CK-MB (CK-2) C-Reactive Protein NT-Pro-B Natriuret Pep Total Protein Albumin Arterial Blood Glucose Urine WBC (Auto) Urine Creatinine 01/25/20 01/25/20 01/25/20 04:25 05:38 11:52 WBC RBC Hgb Hct MCHC RDW MCV MCH Lymph % (Auto) Saunders % (Auto) Saunders # Eos # Lymph # (Auto) Saunders # (Auto) Eos # (Auto) Seg Neutrophils % Seg Neuts % (Manual) Baso # (Auto) Lymphocytes % (Manual) Monocytes % (Manual) Eosinophils % (Manual) Basophils % (Manual) Seg Neutrophils # Seg Neutrophils # Man Lymphocytes # (Manual) Monocytes # (Manual) Eosinophils # (Manual) Nucleated RBC % Basophils # (Manual) PT INR APTT Heparin Anti-Xa Level ABG pH POC ABG pO2 ABG pO2 ABG HCO3 ABG O2 Saturation ABG Base Excess POC ABG pCO2 ABG Hemoglobin ABG Oxyhemoglobin ABG Glucose Oxyhemoglobin Sodium Potassium Chloride Carbon Dioxide BUN 30 H Creatinine Glucose 134 H POC Glucose 129 H 134 H Lactic Acid Calcium Phosphorus Magnesium AST ALT Lactate Dehydrogenase Total Bilirubin Direct Bilirubin CK-MB (CK-2) C-Reactive Protein NT-Pro-B Natriuret Pep Total Protein Albumin Arterial Blood Glucose Urine WBC (Auto) Urine Creatinine 01/25/20 01/25/20 01/26/20 17:13 21:02 00:59 WBC RBC Hgb Hct MCHC RDW MCV MCH Lymph % (Auto) Saunders % (Auto) Saunders # Eos # Lymph # (Auto) Saunders # (Auto) Eos # (Auto) Seg Neutrophils % Seg Neuts % (Manual) Baso # (Auto) Lymphocytes % (Manual) Monocytes % (Manual) Eosinophils % (Manual) Basophils % (Manual) Seg Neutrophils # Seg Neutrophils # Man Lymphocytes # (Manual) Monocytes # (Manual) Eosinophils # (Manual) Nucleated RBC % Basophils # (Manual) PT INR APTT Heparin Anti-Xa Level ABG pH POC ABG pO2 ABG pO2 57.5 L ABG HCO3 31.7 H ABG O2 Saturation 90.3 L ABG Base Excess 6.6 H POC ABG pCO2 ABG Hemoglobin 13.0 L ABG Oxyhemoglobin ABG Glucose Oxyhemoglobin 87.5 L Sodium Potassium Chloride Carbon Dioxide BUN Creatinine Glucose POC Glucose 124 H 196 H Lactic Acid Calcium Phosphorus Magnesium AST ALT Lactate Dehydrogenase Total Bilirubin Direct Bilirubin CK-MB (CK-2) C-Reactive Protein NT-Pro-B Natriuret Pep Total Protein Albumin Arterial Blood Glucose Urine WBC (Auto) Urine Creatinine 01/26/20 01/26/20 01/26/20 03:20 05:46 12:46 WBC RBC Hgb 9.2 L Hct 29.4 L MCHC RDW MCV MCH Lymph % (Auto) Saunders % (Auto) Saunders # Eos # Lymph # (Auto) Saunders # (Auto) Eos # (Auto) Seg Neutrophils % Seg Neuts % (Manual) Baso # (Auto) Lymphocytes % (Manual) Monocytes % (Manual) Eosinophils % (Manual) Basophils % (Manual) Seg Neutrophils # Seg Neutrophils # Man Lymphocytes # (Manual) Monocytes # (Manual) Eosinophils # (Manual) Nucleated RBC % Basophils # (Manual) PT INR APTT Heparin Anti-Xa Level ABG pH POC ABG pO2 ABG pO2 ABG HCO3 ABG O2 Saturation ABG Base Excess POC ABG pCO2 ABG Hemoglobin ABG Oxyhemoglobin ABG Glucose Oxyhemoglobin Sodium Potassium Chloride Carbon Dioxide BUN Creatinine Glucose POC Glucose 141 H 122 H Lactic Acid Calcium Phosphorus Magnesium AST ALT Lactate Dehydrogenase Total Bilirubin Direct Bilirubin CK-MB (CK-2) C-Reactive Protein NT-Pro-B Natriuret Pep Total Protein Albumin Arterial Blood Glucose Urine WBC (Auto) Urine Creatinine 01/26/20 01/26/20 01/27/20 18:03 23:55 04:47 WBC RBC Hgb Hct MCHC RDW MCV MCH Lymph % (Auto) Saunders % (Auto) Saunders # Eos # Lymph # (Auto) Saunders # (Auto) Eos # (Auto) Seg Neutrophils % Seg Neuts % (Manual) Baso # (Auto) Lymphocytes % (Manual) Monocytes % (Manual) Eosinophils % (Manual) Basophils % (Manual) Seg Neutrophils # Seg Neutrophils # Man Lymphocytes # (Manual) Monocytes # (Manual) Eosinophils # (Manual) Nucleated RBC % Basophils # (Manual) PT INR APTT Heparin Anti-Xa Level ABG pH POC ABG pO2 ABG pO2 ABG HCO3 ABG O2 Saturation ABG Base Excess POC ABG pCO2 ABG Hemoglobin ABG Oxyhemoglobin ABG Glucose Oxyhemoglobin Sodium Potassium Chloride Carbon Dioxide BUN 30 H Creatinine 0.7 L Glucose 135 H POC Glucose 142 H 159 H Lactic Acid Calcium Phosphorus Magnesium AST ALT Lactate Dehydrogenase Total Bilirubin Direct Bilirubin CK-MB (CK-2) C-Reactive Protein NT-Pro-B Natriuret Pep Total Protein Albumin Arterial Blood Glucose Urine WBC (Auto) Urine Creatinine 01/27/20 01/27/20 01/27/20 05:43 12:06 17:16 WBC RBC Hgb Hct MCHC RDW MCV MCH Lymph % (Auto) Saunders % (Auto) Saunders # Eos # Lymph # (Auto) Saunders # (Auto) Eos # (Auto) Seg Neutrophils % Seg Neuts % (Manual) Baso # (Auto) Lymphocytes % (Manual) Monocytes % (Manual) Eosinophils % (Manual) Basophils % (Manual) Seg Neutrophils # Seg Neutrophils # Man Lymphocytes # (Manual) Monocytes # (Manual) Eosinophils # (Manual) Nucleated RBC % Basophils # (Manual) PT INR APTT Heparin Anti-Xa Level ABG pH POC ABG pO2 ABG pO2 ABG HCO3 ABG O2 Saturation ABG Base Excess POC ABG pCO2 ABG Hemoglobin ABG Oxyhemoglobin ABG Glucose Oxyhemoglobin Sodium Potassium Chloride Carbon Dioxide BUN Creatinine Glucose POC Glucose 143 H 142 H 128 H Lactic Acid Calcium Phosphorus Magnesium AST ALT Lactate Dehydrogenase Total Bilirubin Direct Bilirubin CK-MB (CK-2) C-Reactive Protein NT-Pro-B Natriuret Pep Total Protein Albumin Arterial Blood Glucose Urine WBC (Auto) Urine Creatinine 01/27/20 01/28/20 01/28/20 23:55 04:37 05:55 WBC RBC Hgb 9.4 L Hct 29.9 L MCHC RDW MCV MCH Lymph % (Auto) Saunders % (Auto) Saunders # Eos # Lymph # (Auto) Saunders # (Auto) Eos # (Auto) Seg Neutrophils % Seg Neuts % (Manual) Baso # (Auto) Lymphocytes % (Manual) Monocytes % (Manual) Eosinophils % (Manual) Basophils % (Manual) Seg Neutrophils # Seg Neutrophils # Man Lymphocytes # (Manual) Monocytes # (Manual) Eosinophils # (Manual) Nucleated RBC % Basophils # (Manual) PT INR APTT Heparin Anti-Xa Level ABG pH POC ABG pO2 ABG pO2 ABG HCO3 ABG O2 Saturation ABG Base Excess POC ABG pCO2 ABG Hemoglobin ABG Oxyhemoglobin ABG Glucose Oxyhemoglobin Sodium Potassium Chloride Carbon Dioxide BUN Creatinine Glucose POC Glucose 166 H 169 H Lactic Acid Calcium Phosphorus Magnesium AST ALT Lactate Dehydrogenase Total Bilirubin Direct Bilirubin CK-MB (CK-2) C-Reactive Protein NT-Pro-B Natriuret Pep Total Protein Albumin Arterial Blood Glucose Urine WBC (Auto) Urine Creatinine 01/28/20 01/28/20 01/28/20 11:58 17:26 23:46 WBC RBC Hgb Hct MCHC RDW MCV MCH Lymph % (Auto) Saunders % (Auto) Saunders # Eos # Lymph # (Auto) Saunders # (Auto) Eos # (Auto) Seg Neutrophils % Seg Neuts % (Manual) Baso # (Auto) Lymphocytes % (Manual) Monocytes % (Manual) Eosinophils % (Manual) Basophils % (Manual) Seg Neutrophils # Seg Neutrophils # Man Lymphocytes # (Manual) Monocytes # (Manual) Eosinophils # (Manual) Nucleated RBC % Basophils # (Manual) PT INR APTT Heparin Anti-Xa Level ABG pH POC ABG pO2 ABG pO2 ABG HCO3 ABG O2 Saturation ABG Base Excess POC ABG pCO2 ABG Hemoglobin ABG Oxyhemoglobin ABG Glucose Oxyhemoglobin Sodium Potassium Chloride Carbon Dioxide BUN Creatinine Glucose POC Glucose 130 H 126 H 150 H Lactic Acid Calcium Phosphorus Magnesium AST ALT Lactate Dehydrogenase Total Bilirubin Direct Bilirubin CK-MB (CK-2) C-Reactive Protein NT-Pro-B Natriuret Pep Total Protein Albumin Arterial Blood Glucose Urine WBC (Auto) Urine Creatinine 01/29/20 01/29/20 01/29/20 04:55 06:00 12:28 WBC RBC Hgb Hct MCHC RDW MCV MCH Lymph % (Auto) Saunders % (Auto) Saunders # Eos # Lymph # (Auto) Saunders # (Auto) Eos # (Auto) Seg Neutrophils % Seg Neuts % (Manual) Baso # (Auto) Lymphocytes % (Manual) Monocytes % (Manual) Eosinophils % (Manual) Basophils % (Manual) Seg Neutrophils # Seg Neutrophils # Man Lymphocytes # (Manual) Monocytes # (Manual) Eosinophils # (Manual) Nucleated RBC % Basophils # (Manual) PT INR APTT Heparin Anti-Xa Level ABG pH POC ABG pO2 ABG pO2 ABG HCO3 ABG O2 Saturation ABG Base Excess POC ABG pCO2 ABG Hemoglobin ABG Oxyhemoglobin ABG Glucose Oxyhemoglobin Sodium Potassium Chloride Carbon Dioxide 34 H BUN Creatinine 0.6 L Glucose 152 H POC Glucose 157 H 156 H Lactic Acid Calcium Phosphorus Magnesium AST ALT Lactate Dehydrogenase Total Bilirubin Direct Bilirubin CK-MB (CK-2) C-Reactive Protein NT-Pro-B Natriuret Pep Total Protein Albumin Arterial Blood Glucose Urine WBC (Auto) Urine Creatinine 01/29/20 01/30/20 01/30/20 19:06 00:29 05:39 WBC RBC Hgb Hct MCHC RDW MCV MCH Lymph % (Auto) Saunders % (Auto) Saunders # Eos # Lymph # (Auto) Saunders # (Auto) Eos # (Auto) Seg Neutrophils % Seg Neuts % (Manual) Baso # (Auto) Lymphocytes % (Manual) Monocytes % (Manual) Eosinophils % (Manual) Basophils % (Manual) Seg Neutrophils # Seg Neutrophils # Man Lymphocytes # (Manual) Monocytes # (Manual) Eosinophils # (Manual) Nucleated RBC % Basophils # (Manual) PT INR APTT Heparin Anti-Xa Level ABG pH POC ABG pO2 ABG pO2 ABG HCO3 ABG O2 Saturation ABG Base Excess POC ABG pCO2 ABG Hemoglobin ABG Oxyhemoglobin ABG Glucose Oxyhemoglobin Sodium Potassium Chloride Carbon Dioxide BUN Creatinine Glucose POC Glucose 152 H 132 H 159 H Lactic Acid Calcium Phosphorus Magnesium AST ALT Lactate Dehydrogenase Total Bilirubin Direct Bilirubin CK-MB (CK-2) C-Reactive Protein NT-Pro-B Natriuret Pep Total Protein Albumin Arterial Blood Glucose Urine WBC (Auto) Urine Creatinine 01/30/20 01/30/20 01/30/20 12:27 17:42 23:28 WBC RBC Hgb Hct MCHC RDW MCV MCH Lymph % (Auto) Saunders % (Auto) Saunders # Eos # Lymph # (Auto) Saunders # (Auto) Eos # (Auto) Seg Neutrophils % Seg Neuts % (Manual) Baso # (Auto) Lymphocytes % (Manual) Monocytes % (Manual) Eosinophils % (Manual) Basophils % (Manual) Seg Neutrophils # Seg Neutrophils # Man Lymphocytes # (Manual) Monocytes # (Manual) Eosinophils # (Manual) Nucleated RBC % Basophils # (Manual) PT INR APTT Heparin Anti-Xa Level ABG pH POC ABG pO2 ABG pO2 ABG HCO3 ABG O2 Saturation ABG Base Excess POC ABG pCO2 ABG Hemoglobin ABG Oxyhemoglobin ABG Glucose Oxyhemoglobin Sodium Potassium Chloride Carbon Dioxide BUN Creatinine Glucose POC Glucose 151 H 144 H 164 H Lactic Acid Calcium Phosphorus Magnesium AST ALT Lactate Dehydrogenase Total Bilirubin Direct Bilirubin CK-MB (CK-2) C-Reactive Protein NT-Pro-B Natriuret Pep Total Protein Albumin Arterial Blood Glucose Urine WBC (Auto) Urine Creatinine 01/31/20 01/31/20 01/31/20 05:51 11:51 18:06 WBC RBC Hgb Hct MCHC RDW MCV MCH Lymph % (Auto) Saunders % (Auto) Saunders # Eos # Lymph # (Auto) Saunders # (Auto) Eos # (Auto) Seg Neutrophils % Seg Neuts % (Manual) Baso # (Auto) Lymphocytes % (Manual) Monocytes % (Manual) Eosinophils % (Manual) Basophils % (Manual) Seg Neutrophils # Seg Neutrophils # Man Lymphocytes # (Manual) Monocytes # (Manual) Eosinophils # (Manual) Nucleated RBC % Basophils # (Manual) PT INR APTT Heparin Anti-Xa Level ABG pH POC ABG pO2 ABG pO2 ABG HCO3 ABG O2 Saturation ABG Base Excess POC ABG pCO2 ABG Hemoglobin ABG Oxyhemoglobin ABG Glucose Oxyhemoglobin Sodium Potassium Chloride Carbon Dioxide BUN Creatinine Glucose POC Glucose 131 H 167 H 210 H Lactic Acid Calcium Phosphorus Magnesium AST ALT Lactate Dehydrogenase Total Bilirubin Direct Bilirubin CK-MB (CK-2) C-Reactive Protein NT-Pro-B Natriuret Pep Total Protein Albumin Arterial Blood Glucose Urine WBC (Auto) Urine Creatinine 01/31/20 01/31/20 02/01/20 19:24 Unknown 00:34 WBC RBC Hgb Hct MCHC RDW MCV MCH Lymph % (Auto) Saunders % (Auto) Saunders # Eos # Lymph # (Auto) Saunders # (Auto) Eos # (Auto) Seg Neutrophils % Seg Neuts % (Manual) Baso # (Auto) Lymphocytes % (Manual) Monocytes % (Manual) Eosinophils % (Manual) Basophils % (Manual) Seg Neutrophils # Seg Neutrophils # Man Lymphocytes # (Manual) Monocytes # (Manual) Eosinophils # (Manual) Nucleated RBC % Basophils # (Manual) PT INR APTT Heparin Anti-Xa Level ABG pH POC ABG pO2 ABG pO2 ABG HCO3 ABG O2 Saturation ABG Base Excess POC ABG pCO2 ABG Hemoglobin ABG Oxyhemoglobin ABG Glucose Oxyhemoglobin Sodium Potassium Chloride 95.3 L Carbon Dioxide 33 H BUN 36 H Creatinine Glucose 187 H POC Glucose 116 H Lactic Acid Calcium Phosphorus Magnesium AST ALT Lactate Dehydrogenase Total Bilirubin Direct Bilirubin CK-MB (CK-2) C-Reactive Protein NT-Pro-B Natriuret Pep Total Protein Albumin Arterial Blood Glucose Urine WBC (Auto) Urine Creatinine 57.4 H 02/01/20 02/01/20 02/01/20 05:24 10:40 12:29 WBC RBC Hgb Hct MCHC RDW MCV MCH Lymph % (Auto) Saunders % (Auto) Saunders # Eos # Lymph # (Auto) Saunders # (Auto) Eos # (Auto) Seg Neutrophils % Seg Neuts % (Manual) Baso # (Auto) Lymphocytes % (Manual) Monocytes % (Manual) Eosinophils % (Manual) Basophils % (Manual) Seg Neutrophils # Seg Neutrophils # Man Lymphocytes # (Manual) Monocytes # (Manual) Eosinophils # (Manual) Nucleated RBC % Basophils # (Manual) PT INR APTT Heparin Anti-Xa Level ABG pH POC ABG pO2 ABG pO2 ABG HCO3 ABG O2 Saturation ABG Base Excess POC ABG pCO2 ABG Hemoglobin ABG Oxyhemoglobin ABG Glucose Oxyhemoglobin Sodium Potassium Chloride Carbon Dioxide BUN Creatinine Glucose POC Glucose 142 H 165 H 151 H Lactic Acid Calcium Phosphorus Magnesium AST ALT Lactate Dehydrogenase Total Bilirubin Direct Bilirubin CK-MB (CK-2) C-Reactive Protein NT-Pro-B Natriuret Pep Total Protein Albumin Arterial Blood Glucose Urine WBC (Auto) Urine Creatinine 02/01/20 02/01/20 02/02/20 17:16 23:23 06:36 WBC RBC Hgb Hct MCHC RDW MCV MCH Lymph % (Auto) Saunders % (Auto) Saunders # Eos # Lymph # (Auto) Saunders # (Auto) Eos # (Auto) Seg Neutrophils % Seg Neuts % (Manual) Baso # (Auto) Lymphocytes % (Manual) Monocytes % (Manual) Eosinophils % (Manual) Basophils % (Manual) Seg Neutrophils # Seg Neutrophils # Man Lymphocytes # (Manual) Monocytes # (Manual) Eosinophils # (Manual) Nucleated RBC % Basophils # (Manual) PT INR APTT Heparin Anti-Xa Level ABG pH POC ABG pO2 ABG pO2 ABG HCO3 ABG O2 Saturation ABG Base Excess POC ABG pCO2 ABG Hemoglobin ABG Oxyhemoglobin ABG Glucose Oxyhemoglobin Sodium Potassium Chloride Carbon Dioxide BUN Creatinine Glucose POC Glucose 137 H 145 H 181 H Lactic Acid Calcium Phosphorus Magnesium AST ALT Lactate Dehydrogenase Total Bilirubin Direct Bilirubin CK-MB (CK-2) C-Reactive Protein NT-Pro-B Natriuret Pep Total Protein Albumin Arterial Blood Glucose Urine WBC (Auto) Urine Creatinine 02/02/20 02/02/20 02/02/20 10:01 12:05 17:54 WBC RBC Hgb Hct MCHC RDW MCV MCH Lymph % (Auto) Saunders % (Auto) Saunders # Eos # Lymph # (Auto) Saunders # (Auto) Eos # (Auto) Seg Neutrophils % Seg Neuts % (Manual) Baso # (Auto) Lymphocytes % (Manual) Monocytes % (Manual) Eosinophils % (Manual) Basophils % (Manual) Seg Neutrophils # Seg Neutrophils # Man Lymphocytes # (Manual) Monocytes # (Manual) Eosinophils # (Manual) Nucleated RBC % Basophils # (Manual) PT INR APTT Heparin Anti-Xa Level ABG pH POC ABG pO2 ABG pO2 ABG HCO3 ABG O2 Saturation ABG Base Excess POC ABG pCO2 ABG Hemoglobin ABG Oxyhemoglobin ABG Glucose Oxyhemoglobin Sodium Potassium Chloride 95.3 L Carbon Dioxide BUN 44 H Creatinine Glucose 234 H POC Glucose 184 H 127 H Lactic Acid Calcium Phosphorus Magnesium AST 363 H ALT 457 H Lactate Dehydrogenase Total Bilirubin Direct Bilirubin CK-MB (CK-2) C-Reactive Protein NT-Pro-B Natriuret Pep Total Protein Albumin 3.0 L Arterial Blood Glucose Urine WBC (Auto) Urine Creatinine 02/02/20 02/03/20 02/03/20 23:47 05:32 07:04 WBC 13.0 H RBC Hgb 9.5 L Hct 30.8 L MCHC 31 L RDW 19.6 H MCV 81 L MCH 25 L Lymph % (Auto) Saunders % (Auto) 9.4 H Saunders # Eos # Lymph # (Auto) Saunders # (Auto) 1.2 H Eos # (Auto) Seg Neutrophils % 72.3 H Seg Neuts % (Manual) Baso # (Auto) Lymphocytes % (Manual) Monocytes % (Manual) Eosinophils % (Manual) Basophils % (Manual) Seg Neutrophils # 9.4 H Seg Neutrophils # Man Lymphocytes # (Manual) Monocytes # (Manual) Eosinophils # (Manual) Nucleated RBC % Basophils # (Manual) PT INR APTT Heparin Anti-Xa Level ABG pH POC ABG pO2 ABG pO2 ABG HCO3 ABG O2 Saturation ABG Base Excess POC ABG pCO2 ABG Hemoglobin ABG Oxyhemoglobin ABG Glucose Oxyhemoglobin Sodium Potassium Chloride Carbon Dioxide BUN Creatinine Glucose POC Glucose 124 H 129 H Lactic Acid Calcium Phosphorus Magnesium AST ALT Lactate Dehydrogenase Total Bilirubin Direct Bilirubin CK-MB (CK-2) C-Reactive Protein NT-Pro-B Natriuret Pep Total Protein Albumin Arterial Blood Glucose Urine WBC (Auto) Urine Creatinine 02/03/20 02/03/20 02/03/20 07:04 11:32 12:49 WBC RBC Hgb Hct MCHC RDW MCV MCH Lymph % (Auto) Saunders % (Auto) Saunders # Eos # Lymph # (Auto) Saunders # (Auto) Eos # (Auto) Seg Neutrophils % Seg Neuts % (Manual) Baso # (Auto) Lymphocytes % (Manual) Monocytes % (Manual) Eosinophils % (Manual) Basophils % (Manual) Seg Neutrophils # Seg Neutrophils # Man Lymphocytes # (Manual) Monocytes # (Manual) Eosinophils # (Manual) Nucleated RBC % Basophils # (Manual) PT INR APTT Heparin Anti-Xa Level ABG pH POC ABG pO2 ABG pO2 ABG HCO3 ABG O2 Saturation ABG Base Excess POC ABG pCO2 ABG Hemoglobin ABG Oxyhemoglobin ABG Glucose Oxyhemoglobin Sodium Potassium Chloride 97.9 L Carbon Dioxide 33 H BUN 39 H Creatinine Glucose 119 H POC Glucose 138 H Lactic Acid Calcium Phosphorus Magnesium 2.60 H AST ALT Lactate Dehydrogenase Total Bilirubin Direct Bilirubin CK-MB (CK-2) C-Reactive Protein NT-Pro-B Natriuret Pep Total Protein Albumin Arterial Blood Glucose Urine WBC (Auto) Urine Creatinine 02/03/20 02/04/20 02/04/20 18:28 16:24 16:24 WBC RBC 3.38 L Hgb 8.6 L Hct 26.9 L MCHC RDW 19.5 H MCV 80 L MCH 26 L Lymph % (Auto) Saunders % (Auto) Saunders # Eos # Lymph # (Auto) Saunders # (Auto) Eos # (Auto) Seg Neutrophils % Seg Neuts % (Manual) Baso # (Auto) Lymphocytes % (Manual) Monocytes % (Manual) Eosinophils % (Manual) Basophils % (Manual) Seg Neutrophils # Seg Neutrophils # Man Lymphocytes # (Manual) Monocytes # (Manual) Eosinophils # (Manual) Nucleated RBC % Basophils # (Manual) PT INR APTT Heparin Anti-Xa Level ABG pH POC ABG pO2 ABG pO2 ABG HCO3 ABG O2 Saturation ABG Base Excess POC ABG pCO2 ABG Hemoglobin ABG Oxyhemoglobin ABG Glucose Oxyhemoglobin Sodium Potassium 3.4 L Chloride Carbon Dioxide 31 H BUN 37 H Creatinine Glucose 70 L POC Glucose 118 H Lactic Acid Calcium Phosphorus Magnesium AST 169 H ALT 394 H Lactate Dehydrogenase Total Bilirubin 1.50 H Direct Bilirubin CK-MB (CK-2) C-Reactive Protein NT-Pro-B Natriuret Pep Total Protein Albumin 2.9 L Arterial Blood Glucose Urine WBC (Auto) Urine Creatinine 02/05/20 02/05/20 02/05/20 00:41 06:37 17:14 WBC RBC Hgb Hct MCHC RDW MCV MCH Lymph % (Auto) Saunders % (Auto) Saunders # Eos # Lymph # (Auto) Saunders # (Auto) Eos # (Auto) Seg Neutrophils % Seg Neuts % (Manual) Baso # (Auto) Lymphocytes % (Manual) Monocytes % (Manual) Eosinophils % (Manual) Basophils % (Manual) Seg Neutrophils # Seg Neutrophils # Man Lymphocytes # (Manual) Monocytes # (Manual) Eosinophils # (Manual) Nucleated RBC % Basophils # (Manual) PT INR APTT Heparin Anti-Xa Level ABG pH POC ABG pO2 ABG pO2 ABG HCO3 ABG O2 Saturation ABG Base Excess POC ABG pCO2 ABG Hemoglobin ABG Oxyhemoglobin ABG Glucose Oxyhemoglobin Sodium Potassium 3.1 L Chloride Carbon Dioxide 35 H BUN 32 H Creatinine 0.7 L Glucose POC Glucose 69 L 127 H Lactic Acid Calcium Phosphorus Magnesium AST 134 H ALT 352 H Lactate Dehydrogenase Total Bilirubin 1.60 H Direct Bilirubin CK-MB (CK-2) C-Reactive Protein NT-Pro-B Natriuret Pep Total Protein Albumin 2.9 L Arterial Blood Glucose Urine WBC (Auto) Urine Creatinine 02/05/20 02/06/20 02/06/20 23:43 05:32 08:01 WBC RBC Hgb Hct MCHC RDW MCV MCH Lymph % (Auto) Saunders % (Auto) Saunders # Eos # Lymph # (Auto) Saunders # (Auto) Eos # (Auto) Seg Neutrophils % Seg Neuts % (Manual) Baso # (Auto) Lymphocytes % (Manual) Monocytes % (Manual) Eosinophils % (Manual) Basophils % (Manual) Seg Neutrophils # Seg Neutrophils # Man Lymphocytes # (Manual) Monocytes # (Manual) Eosinophils # (Manual) Nucleated RBC % Basophils # (Manual) PT INR APTT Heparin Anti-Xa Level ABG pH POC ABG pO2 ABG pO2 ABG HCO3 ABG O2 Saturation ABG Base Excess POC ABG pCO2 ABG Hemoglobin ABG Oxyhemoglobin ABG Glucose Oxyhemoglobin Sodium Potassium Chloride Carbon Dioxide BUN 40 H Creatinine Glucose 132 H POC Glucose 129 H 131 H Lactic Acid Calcium Phosphorus Magnesium AST ALT Lactate Dehydrogenase Total Bilirubin Direct Bilirubin CK-MB (CK-2) C-Reactive Protein NT-Pro-B Natriuret Pep Total Protein Albumin Arterial Blood Glucose Urine WBC (Auto) Urine Creatinine 02/06/20 02/06/20 02/06/20 11:51 16:28 17:32 WBC RBC Hgb Hct MCHC RDW MCV MCH Lymph % (Auto) Saunders % (Auto) Saunders # Eos # Lymph # (Auto) Saunders # (Auto) Eos # (Auto) Seg Neutrophils % Seg Neuts % (Manual) Baso # (Auto) Lymphocytes % (Manual) Monocytes % (Manual) Eosinophils % (Manual) Basophils % (Manual) Seg Neutrophils # Seg Neutrophils # Man Lymphocytes # (Manual) Monocytes # (Manual) Eosinophils # (Manual) Nucleated RBC % Basophils # (Manual) PT INR APTT Heparin Anti-Xa Level ABG pH POC ABG pO2 ABG pO2 ABG HCO3 ABG O2 Saturation ABG Base Excess POC ABG pCO2 ABG Hemoglobin ABG Oxyhemoglobin ABG Glucose Oxyhemoglobin Sodium Potassium Chloride Carbon Dioxide BUN Creatinine Glucose POC Glucose 167 H 129 H Lactic Acid Calcium Phosphorus Magnesium AST 824 H ALT 948 H Lactate Dehydrogenase Total Bilirubin 1.70 H Direct Bilirubin 1.2 H CK-MB (CK-2) C-Reactive Protein NT-Pro-B Natriuret Pep Total Protein Albumin 2.9 L Arterial Blood Glucose Urine WBC (Auto) Urine Creatinine 02/07/20 02/07/20 02/07/20 00:11 04:57 04:57 WBC RBC Hgb 9.2 L Hct 29.7 L MCHC 31 L RDW 20.2 H MCV 80 L MCH 25 L Lymph % (Auto) Saunders % (Auto) Saunders # Eos # Lymph # (Auto) Saunders # (Auto) Eos # (Auto) Seg Neutrophils % Seg Neuts % (Manual) Baso # (Auto) Lymphocytes % (Manual) Monocytes % (Manual) Eosinophils % (Manual) Basophils % (Manual) Seg Neutrophils # Seg Neutrophils # Man Lymphocytes # (Manual) Monocytes # (Manual) Eosinophils # (Manual) Nucleated RBC % Basophils # (Manual) PT INR APTT Heparin Anti-Xa Level ABG pH POC ABG pO2 ABG pO2 ABG HCO3 ABG O2 Saturation ABG Base Excess POC ABG pCO2 ABG Hemoglobin ABG Oxyhemoglobin ABG Glucose Oxyhemoglobin Sodium Potassium 3.4 L D Chloride Carbon Dioxide 32 H BUN 39 H Creatinine Glucose 106 H POC Glucose 121 H Lactic Acid Calcium Phosphorus Magnesium AST ALT Lactate Dehydrogenase Total Bilirubin Direct Bilirubin CK-MB (CK-2) C-Reactive Protein NT-Pro-B Natriuret Pep Total Protein Albumin Arterial Blood Glucose Urine WBC (Auto) Urine Creatinine 02/07/20 02/07/20 02/07/20 15:03 15:03 17:11 WBC RBC Hgb Hct MCHC RDW MCV MCH Lymph % (Auto) Saunders % (Auto) Saunders # Eos # Lymph # (Auto) Saunders # (Auto) Eos # (Auto) Seg Neutrophils % Seg Neuts % (Manual) Baso # (Auto) Lymphocytes % (Manual) Monocytes % (Manual) Eosinophils % (Manual) Basophils % (Manual) Seg Neutrophils # Seg Neutrophils # Man Lymphocytes # (Manual) Monocytes # (Manual) Eosinophils # (Manual) Nucleated RBC % Basophils # (Manual) PT 27.0 H INR 2.46 H APTT Heparin Anti-Xa Level ABG pH POC ABG pO2 ABG pO2 ABG HCO3 ABG O2 Saturation ABG Base Excess POC ABG pCO2 ABG Hemoglobin ABG Oxyhemoglobin ABG Glucose Oxyhemoglobin Sodium Potassium Chloride Carbon Dioxide BUN Creatinine Glucose POC Glucose 109 H Lactic Acid Calcium Phosphorus Magnesium AST 424 H ALT 796 H Lactate Dehydrogenase Total Bilirubin 1.60 H Direct Bilirubin 1.2 H CK-MB (CK-2) C-Reactive Protein NT-Pro-B Natriuret Pep Total Protein Albumin 2.9 L Arterial Blood Glucose Urine WBC (Auto) Urine Creatinine Chest x-ray: pending Allied health notes reviewed: nursing
--- NOTE | 2020-02-08 17:05 | Gastroenterology Progress Note ---
Assessment and Plan - Patient Problems (1) Abnormal liver enzymes Current Visit: Yes Status: Acute Plan to address problem: - hepatic panel from today pending. but previously stable. - acute hepatitis panel negative. - CT a/p with no liver abnormalities - possible drug induced with amiodarone, which is off now vs ischemic injury - LFTs trended upwards to AST/ALT 800s/900s on and now trending down. repeat level pending today. - will monitor conservatively. (2) Nausea & vomiting Current Visit: Yes Status: Acute Plan to address problem: - Hx of partial SBO, which has resolved. - n/v likely 2/2 fecal impaction, which is resolved after receiving Golytely prep - continue with miralax daily. (3) Pancreatic lesion Current Visit: Yes Status: Acute Plan to address problem: - CT a/p showing ~ 2 cm pancreatic head lesion. this was previously seen in prior CT but enlarged. - recommend work up outpatient with MRI once patient recovers from acute issues. Follow up outpatient Subjective Date of service: 02/08/20 Principal diagnosis: Ac hypoxemic resp failure; Pneumonia; PUI COVID-19; CHF; COPD; HTN Interval history: No new complaints. Wants to eat. Objective - Constitutional Vitals: Temp Pulse Resp BP Pulse Ox 98.0 F 133 H 18 96/69 99 02/08/20 12:00 02/08/20 14:00 02/08/20 14:00 02/08/20 14:00 02/08/20 16:42 General appearance: no acute distress - EENT ENT: hearing intact - Respiratory Respiratory effort: normal - Cardiovascular Rhythm: irregularly irregular Heart Sounds: Present: S1 & S2 - Gastrointestinal General gastrointestinal: Present: soft, non-tender, non-distended - Labs CBC & Chem 7: 02/07/20 04:57 02/07/20 04:57 Labs: Laboratory Results - last 24 hr 02/07/20 02/07/20 02/08/20 17:11 23:52 06:07 POC Glucose 109 H 94 102
[2020-02-08 19:42] LABS: Albumin 2.7 g/dL (3.9-5); Bilirubin,Direct 0.9 mg/dL (0-0.2)
[2020-02-08] MEDS: MORPHINE 2 MG/1 ML INJ IV PRN (20:45)
[2020-02-08] MEDS: POLYETHYLENE GLYCOL 3350 17 GM POWDER PO SCH (21:12)
[2020-02-08] MEDS: TAMSULOSIN 0.4 MG CAP PO SCH (21:13)
[2020-02-09] MEDS: MORPHINE 2 MG/1 ML INJ IV PRN (00:32)
[2020-02-09] MEDS: METOPROLOL TARTRATE 50 MG TAB PO SCH ×4 (00:32→17:54)
[2020-02-09] MEDS: METOCLOPRAMIDE 10 MG/2 ML INJ IV SCH ×4 (00:32→17:52)
[2020-02-09] MEDS: INSULIN REGULAR, HUMAN 100 UNIT/ML 3ML VIAL SUB-Q SCH ×4 (00:36→19:00)
--- NOTE | 2020-02-09 08:03 | Progress Note ---
Assessment and Plan Assessment and plan: Patient is a 64-year-old male with known history of hypertension, COPD, history of coronary artery disease, CHF with ejection fraction of 20 to 25% in August 2018 presenting to the emergency room via EMS complaining of shortness of breath. Patient was found to be hypoxic and in respiratory distress. Patient was placed on CPAP in route to the hospital. Patient remained hypoxic on CPAP BiPAP ,subsequently was intubated. Work-up in the emergency room including chest x-ray reveals bilateral pneumonia. He had an elevated white count of 14 and also had an elevated BNP. sputum cultures positive for Pseudomonas, ID treated with cefepime and Vanco. His hospital course became complicated with acute PE, DVT, paroxysmal atrial fib - placed on chronic anticoagulation. Patient was difficult to wean off, status post trach and PEG, remains on mechanical ventilation with trach tube. He then developed partial small bowel obstruction valuated by general surgeon symptom improved with medical Mx, patient was briefly weaned off ventilatory support however, was in respiratory failure requiring full ventilatory support. Cardiac catheterization on 01/22/2020. No new issues overnight. -Ischemic cardiomyopathy Cardiology is following, status post cardiac catheterization on 01/22/2020; Coronary artery disease status post PCI and stent to the LAD Continue current cardiac medications --Acute on chronic hypoxemic respiratory failure; Patient has tracheostomy on vent Continue nebulizers, , trach care Wean off ventilator as tolerated Pulmonary critical following --Acute exacerbation of COPD; Patient is currently on ventilatory support Continue nebulizers --Left lower lobe PE; Continue Eliquis, ventilatory support --Acute right lower extremity DVT; Patient is on Eliquis --Bilateral multifocal pneumonia/community-acquired Completed antibiotics, improved --Severe sepsis/bilateral pneumonia: Completed antibiotics COVID-19 test; 11/24/2019; negative 11/26/2019; negative 12/29/2019: Negative --atrial fibrillation WITH RVR Now rate controlled, Stable on amiodarone and Eliquis --Acute on chronic combined systolic and diastolic congestive heart failure Ischemic cardiomyopathy left ventricular ejection fraction 40 to 45% --H/o CAD [[facility] 12/2018 in-stent restenosis] --Hypertensive emergency; present on admission Reasonable blood pressures, continue current antihypertensives As needed medications --Hypokalemia; replenish per protocol and monitor levels --History of alcohol abuse/alcohol withdrawal; Was on CIWA protocol, now stable --Oropharyngeal dysphagia; status post PEG placement Continue PEG feeds per protocol --History of partial small bowel obstruction; resolved Surgery evaluated. At present not a surgical candidate. --Obesity; BMI 34.7 Patient needs weight reduction when medically stable --Severe protein calorie malnutrition/hypoalbuminemia Nutrition supplements, dietitian following, PEG feeds --DVT prophylaxis;Eliquis --Full CODE STATUS We will closely monitor the patient and adjust management as needed Plan of care reviewed with the patient's nurse Jigger Artisan recommendations noted and appreciated 01/24/2020. Recent cardiac catheterization has documented widely patent left anterior descending artery stent with minimal nonobstructive diffuse coronary artery disease in the rest of the coronary arteries. Evidence of ischemic cardiomyopathy with inferior wall hypokinesis. Continue with guideline directed medical therapy. Continue Robinul and scopolamine for secretion control and daily SBT per pulmonary. Continue bronchodilators and routine trach care/airway management. T-piece trials per pulmonary as tolerated. 01/25/2020. Continue with guideline directed medical therapy for systolic heart failure. Cardiac catheterization revealed evidence of ischemic cardiomyopathy with inferior wall hypokinesis (EF 40-45%). Patient currently on T-piece with oxygen 10 L/min FiO2 40%. Continue Robinul and scopolamine for secretion control. Continue bronchodilators and routine trach care/airway management. 01/26/2020;Continue with guideline directed medical therapy for systolic heart failure. Cardiac catheterization revealed evidence of ischemic cardiomyopathy with inferior wall hypokinesis (EF 40-45%). Patient currently on T-piece with oxygen 10 L/min FiO2 40%. Continue Robinul and scopolamine for secretion control. Continue bronchodilators and routine trach care/airway management. 01/27/2020Continue with guideline directed medical therapy for systolic heart failure. Cardiac catheterization revealed evidence of ischemic cardiomyopathy with inferior wall hypokinesis (EF 40-45%). Patient currently on T-piece with oxygen 10 L/min FiO2 40%. Continue Robinul and scopolamine for secretion control. Continue bronchodilators and routine trach care/airway management. 01/28/2020Continue with guideline directed medical therapy for systolic heart failure. Cardiac catheterization revealed evidence of ischemic cardiomyopathy with inferior wall hypokinesis (EF 40-45%). Patient currently on T-piece with oxygen 10 L/min FiO2 40%. Continue Robinul and scopolamine for secretion control. Continue bronchodilators and routine trach care/airway management. 01/29/2020 Continue with guideline directed medical therapy for systolic heart f ailure. Cardiac catheterization revealed evidence of ischemic cardiomyopathy with inferior wall hypokinesis (EF 40-45%). Patient currently on T-piece with oxygen 10 L/min FiO2 40%. Continue Robinul and scopolamine for secretion control. Continue bronchodilators and routine trach care/airway management. 01/30/2020 Continue with guideline directed medical therapy for systolic heart failure. Ca rdiac catheterization revealed evidence of ischemic cardiomyopathy with inferior wall hypokinesis (EF 40-45%). Patient currently on T-piece with oxygen 10 L/min FiO2 40%. Continue Robinul and scopolamine for secretion control. Continue bronchodilators and routine trach care/airway management. Patient has recurrent A. fib and currently on amiodarone, continue beta-hebert, and Eliquis. Patient is on IV diuresis January 31, 2020. Patient resting comfortably. Catheterization with inferior wall hypokinesis ejection fraction 40 to 45%. Was unable to wean tracheostomy at this time. Failed T-piece trial initially. Secretions improved with addition of Robinul. Pulmonology for trach care and airway management and continue to wean. Atrial fibrillation rate well controlled at 81. Currently on amiodarone beta- hebert and anticoagulation with Eliquis. CHF continue present diuresis. February 01, 2020. Patient resting comfortably. No new concerns at this time patient is anticipating discharge. Still failed T-piece trial at this time again. Patient secretions have improved with Robinul all. Atrial fibrillation heart rate 70s to 80s. Well-controlled current anticoagulation Congestive heart failure compensated at this particular time. February 02, 2020 Patient with episode of projectile vomiting. Most likely source partial bowel obstruction versus tube feeds. Will obtain chest x-ray to rule out aspiration. We will also hold tube feeds for 12 hours and obtain KUB. Area tracheostomy needs to be cleaned out as well. Patient obviously has failed T-piece trial again this time. Resume weaning parameters in a.m. Unlikely the secretions that have been fairly well controlled. Atrial fibrillation rate have remained well controlled. Continue amiodarone and beta-hebert. Metoprolol. Congestive heart failure ejection fraction 40 to 45% patient had inferior wall hypokinesis on catheterization otherwise stable. Continue present diuresis Acute respiratory failure unable to wean tracheostomy at this time. Failed T- piece trial again. Despite improve secretions. Continue bronchodilators and weaning parameters. Projectile vomiting. Rule out small bowel obstruction rule out ileus. Will hold tube feeds obtain imaging to rule out aspiration and bowel obstruction as well. Continue antibiotics. 02/02: Discussed with Nursing staff, patient with some mild change in mental status, not following commands like prior,WILL OBTAIN HEAD CT remains intubated on full mechanical ventilatory support. Today is my first day seeing the patient, have reviewed all records so far. Patients still with elevated heart rate of Afib with RVR continue amiodarone and metoprolol. LVEF 40 to 45%. Continue Eliquis FOR THE Acute PE/DVT. Partial SBO vs ileus- KUB is negative. Will monitor, No further vomiting noted. If no improvement will repeat a chest xray to ensure no aspiration in the last 24 hrs. Will initiate sepsis work up, Obtain cultures, cxr- no change, only showing stable bilateral pulmonary opacities, lactate checked and wnl. Mild elevation in WBC. will recheck in am. IF Continued fever, will reconsult ID. 02/03: Mental status more improved, agree with Reglan will change to IV scheduled for two days, no new vomiting. Pseudomonas A in Sputum. 02/04: Clinical improving, amiodarone discontinued due to LFTs, continue Metoprolol. Discussed with GI, started on Golytely to clear impaction. Started on dialy Miralax. 02/05: Continue supportive care. Noted bowel movement, continue bowel regimen 02/06: Cardiology input noted beta-hebert increased for better suppression of atrial fibrillation. Continue to monitor, no other evidence of nausea vomiting noted. Discussed with respiratory therapist will be continued on weaning protocol with pressure support today. 02/07: Patient successfully weaned off the ventilator, No new complaints, continue monitoring, BM noted, Discussed with pulmonary, 02/08; tracheostomy on T-piece, patient is more alert and awake today The high probability of a clinically significant, sudden or life threatening deterioration of the [Pulmonary, GI, cardiac] system(s) required my full and direct attention, intervention and personal management. The aggregate critical care time was [35] minutes. This time is in addition to time spent performing reported procedures but includes the following: [x] Data Review and interpretation [x] Patient assessment and monitoring of vital signs [x] Documentation [x] Medication orders and management History Interval history: I have seen and examined the patient at the bedside this morning in ICU Patient's chart and medications reviewed Patient is tracheostomy on T-piece, weaning parameters Patient is alert and awake Asking for some water Vital signs noted Hospitalist Physical - Constitutional Vitals: Temp Pulse Resp BP Pulse Ox 98.5 F 146 H 15 102/75 99 02/09/20 04:00 02/09/20 07:44 02/09/20 07:44 02/09/20 07:44 02/09/20 07:56 General appearance: Present: no acute distress, well-nourished, obese, other (Tracheostomy, T-piece) - EENT Eyes: Present: PERRL, EOM intact ENT: other (Tracheostomy on T-piece) - Neck Neck: Present: supple, normal ROM - Respiratory Respiratory effort: normal Respiratory: bilateral: diminished, rhonchi, negative: rales, wheezing - Cardiovascular Rhythm: regular Heart Sounds: Present: S1 & S2 - Extremities Extremities: no ischemia, No edema - Abdominal General gastrointestinal: soft, non-tender, non-distended, normal bowel sounds - Integumentary Integumentary: Present: clear, warm - Psychiatric Psychiatric: cooperative - Neurologic Neurologic: moves all extremities, other ( tracheostomy on T-piece ) HEART Score - HEART Score Troponin: Troponin T < 0.010 ng/mL (0.00-0.029) 01/19/20 01:35 Results - Labs CBC & Chem 7: 02/07/20 04:57 02/07/20 04:57 Labs: Laboratory Last Values WBC 7.2 K/mm3 (4.5-11.0) 02/07/20 04:57 RBC 3.73 M/mm3 (3.65-5.03) 02/07/20 04:57 Hgb 9.2 gm/dl (11.8-15.2) L 02/07/20 04:57 Hct 29.7 % (35.5-45.6) L 02/07/20 04:57 MCV 80 fl (84-94) L 02/07/20 04:57 MCH 25 pg (28-32) L 02/07/20 04:57 MCHC 31 % (32-34) L 02/07/20 04:57 RDW 20.2 % (13.2-15.2) H 02/07/20 04:57 Plt Count 230 K/mm3 (140-440) 02/07/20 04:57 Lymph % (Auto) 17.5 % (13.4-35.0) 02/03/20 07:04 Bandera % (Auto) 9.4 % (0.0-7.3) H 02/03/20 07:04 Eos % (Auto) 0.2 % (0.0-4.3) 02/03/20 07:04 Baso % (Auto) 0.6 % (0.0-1.8) 02/03/20 07:04 Lymph # (Auto) 2.3 K/mm3 (1.2-5.4) 02/03/20 07:04 Bandera # (Auto) 1.2 K/mm3 (0.0-0.8) H 02/03/20 07:04 Eos # (Auto) 0.0 K/mm3 (0.0-0.4) 02/03/20 07:04 Baso # (Auto) 0.1 K/mm3 (0.0-0.1) 02/03/20 07:04 Add Manual Diff Complete 12/19/19 11:32 Total Counted 100 12/19/19 11:32 Seg Neutrophils % 72.3 % (40.0-70.0) H 02/03/20 07:04 Seg Neuts % (Manual) 82.0 % (40.0-70.0) H 12/19/19 11:32 Band Neutrophils % 0 % 12/19/19 11:32 Lymphocytes % (Manual) 10.0 % (13.4-35.0) L 12/19/19 11:32 Reactive Lymphs % (Man) 0 % 12/19/19 11:32 Monocytes % (Manual) 6.0 % (0.0-7.3) 12/19/19 11:32 Eosinophils % (Manual) 2.0 % (0.0-4.3) 12/19/19 11:32 Basophils % (Manual) 0 % (0.0-1.8) 12/19/19 11:32 Metamyelocytes % 0 % 12/19/19 11:32 Myelocytes % 0 % 12/19/19 11:32 Promyelocytes % 0 % 12/19/19 11:32 Blast Cells % 0 % 12/19/19 11:32 Nucleated RBC % 1.0 % (0.0-0.9) H 12/19/19 11:32 Seg Neutrophils # 9.4 K/mm3 (1.8-7.7) H 02/03/20 07:04 Seg Neutrophils # Man 12.0 K/mm3 (1.8-7.7) H 12/19/19 11:32 Band Neutrophils # 0.0 K/mm3 12/19/19 11:32 Lymphocytes # (Manual) 1.5 K/mm3 (1.2-5.4) 12/19/19 11:32 Abs React Lymphs (Man) 0.0 K/mm3 12/19/19 11:32 Monocytes # (Manual) 0.9 K/mm3 (0.0-0.8) H 12/19/19 11:32 Eosinophils # (Manual) 0.3 K/mm3 (0.0-0.4) 12/19/19 11:32 Basophils # (Manual) 0.0 K/mm3 (0.0-0.1) 12/19/19 11:32 Metamyelocytes # 0.0 K/mm3 12/19/19 11:32 Myelocytes # 0.0 K/mm3 12/19/19 11:32 Promyelocytes # 0.0 K/mm3 12/19/19 11:32 Blast Cells # 0.0 K/mm3 12/19/19 11:32 WBC Morphology Not Reportable 12/19/19 11:32 Hypersegmented Neuts Not Reportable 12/19/19 11:32 Hyposegmented Neuts Not Reportable 12/19/19 11:32 Hypogranular Neuts Not Reportable 12/19/19 11:32 Smudge Cells Not Reportable 12/19/19 11:32 Toxic Granulation Not Reportable 12/19/19 11:32 Toxic Vacuolation Not Reportable 12/19/19 11:32 Dohle Bodies Not Reportable 12/19/19 11:32 Pelger-Huet Anomaly Not Reportable 12/19/19 11:32 Hector Rods Not Reportable 12/19/19 11:32 Platelet Estimate Consistent w auto 12/19/19 11:32 Clumped Platelets Not Reportable 12/19/19 11:32 Plt Clumps, EDTA Not Reportable 12/19/19 11:32 Large Platelets Not Reportable 12/19/19 11:32 Giant Platelets Not Reportable 12/19/19 11:32 Platelet Satelliting Not Reportable 12/19/19 11:32 Plt Morphology Comment Not Reportable 12/19/19 11:32 RBC Morphology Not Reportable 12/19/19 11:32 Dimorphic RBCs Not Reportable 12/19/19 11:32 Polychromasia Not Reportable 12/19/19 11:32 Hypochromasia Few 12/19/19 11:32 Poikilocytosis Not Reportable 12/19/19 11:32 Anisocytosis 1+ 12/19/19 11:32 Microcytosis Few 12/19/19 11:32 Macrocytosis Few 12/19/19 11:32 Spherocytes Not Reportable 12/19/19 11:32 Pappenheimer Bodies Not Reportable 12/19/19 11:32 Sickle Cells Not Reportable 12/19/19 11:32 Target Cells Not Reportable 12/19/19 11:32 Tear Drop Cells Not Reportable 12/19/19 11:32 Ovalocytes Not Reportable 12/19/19 11:32 Helmet Cells Not Reportable 12/19/19 11:32 Gottlieb-Caberfae Bodies Not Reportable 12/19/19 11:32 [employer] Rings Not Reportable 12/19/19 11:32 Oc Cells Not Reportable 12/19/19 11:32 Bite Cells Not Reportable 12/19/19 11:32 Crenated Cell Not Reportable 12/19/19 11:32 Elliptocytes Not Reportable 12/19/19 11:32 Acanthocytes (Spur) Not Reportable 12/19/19 11:32 Rouleaux Not Reportable 12/19/19 11:32 Hemoglobin C Crystals Not Reportable 12/19/19 11:32 Schistocytes Not Reportable 12/19/19 11:32 Malaria parasites Not Reportable 12/19/19 11:32 Clifford Bodies Not Reportable 12/19/19 11:32 Hem Pathologist Commnt No 12/19/19 11:32 PT 27.0 Sec. (12.2-14.9) H 02/07/20 15:03 INR 2.46 (0.87-1.13) H 02/07/20 15:03 APTT 31.5 Sec. (24.2-36.6) 01/22/20 09:58 Heparin Anti-Xa Level 1.34 U.I./ml (0.3-0.7) H 01/22/20 04:45 ABG pH 7.447 pH Units (7.350-7.450) 01/25/20 21:02 POC ABG pCO2 45.6 mmHg (32.0-48.0) 01/12/20 13:58 ABG pCO2 47.0 mm Hg 01/25/20 21:02 POC ABG pO2 76.6 mmHg (83-108) L 01/12/20 13:58 ABG pO2 57.5 mm Hg (80.0-90.0) L 01/25/20 21:02 POC ABG HCO3 31.2 01/12/20 13:58 ABG HCO3 31.7 mmol/L (20.0-26.0) H 01/25/20 21:02 ABG O2 Saturation 90.3 % (95.0-99.0) L 01/25/20 21:02 ABG O2 Content 16.0 (0.0-44) 01/25/20 21:02 POC ABG Base Excess 6.5 01/12/20 13:58 ABG Base Excess 6.6 mmol/L (-2.0-3.0) H 01/25/20 21:02 ABG Hemoglobin 13.0 gm/dl (14.0-18.0) L 01/25/20 21:02 ABG Oxyhemoglobin 84 (94-98) L 12/22/19 03:22 ABG Carboxyhemoglobin 2.5 % (0.0-5.0) 01/25/20 21:02 ABG Methemoglobin 0.6 % (0.0-1.5) 01/25/20 21:02 ABG Sodium 136.8 mmol/L (136.0-145.0) 01/12/20 13:58 ABG Potassium 3.7 mmol/L (3.40-4.50) 01/12/20 13:58 ABG Chloride 103.0 mmol/L (98-107) 01/12/20 13:58 ABG Glucose 99 mg/dL (65-95) H 01/12/20 13:58 Oxyhemoglobin 87.5 % (95.0-99.0) L 01/25/20 21:02 Carboxyhemoglobin 0.7 (0.5-1.5) 12/22/19 03:22 FiO2 40 % 01/25/20 21:02 Sodium 145 mmol/L (137-145) 02/07/20 04:57 Potassium 3.4 mmol/L (3.6-5.0) L D 02/07/20 04:57 Chloride 103.0 mmol/L (98-107) 02/07/20 04:57 Carbon Dioxide 32 mmol/L (22-30) H 02/07/20 04:57 Anion Gap 13 mmol/L 02/07/20 04:57 BUN 39 mg/dL (9-20) H 02/07/20 04:57 Creatinine 1.1 mg/dL (0.8-1.3) 02/07/20 04:57 Estimated GFR > 60 ml/min 02/07/20 04:57 BUN/Creatinine Ratio 35 % 02/07/20 04:57 Glucose 106 mg/dL (75-100) H 02/07/20 04:57 POC Glucose 113 mg/dL (70-105) H 02/09/20 05:41 Lactic Acid 1.60 mmol/L (0.7-2.0) 02/03/20 12:49 Calcium 9.3 mg/dL (8.4-10.2) 02/07/20 04:57 Ferritin 84.4 ng/mL (30.0-300.0) 11/24/19 04:53 Phosphorus 4.10 mg/dL (2.5-4.5) 01/31/20 19:24 Magnesium 2.60 mg/dL (1.7-2.3) H 02/03/20 12:49 Total Bilirubin 1.30 mg/dL (0.1-1.2) H 02/08/20 19:00 Direct Bilirubin 0.9 mg/dL (0-0.2) H 02/08/20 19:00 Indirect Bilirubin 0.4 mg/dL 02/08/20 19:00 Total Creatine Kinase 141 units/L (55-170) 11/24/19 02:53 CK-MB (CK-2) 4.3 ng/mL (0.0-4.0) H 11/24/19 02:53 AST 309 units/L (5-40) H 02/08/20 19:00 ALT 650 units/L (7-56) H 02/08/20 19:00 CK-MB (CK-2) Rel Index 3.0 (0-4) 11/24/19 02:53 Alkaline Phosphatase 109 units/L (35-129) 02/08/20 19:00 C-Reactive Protein 8.50 mg/dL (0.00-1.30) H 12/01/19 12:16 Ammonia 35.0 umol/L (25-60) 02/03/20 12:49 Lactate Dehydrogenase 228 units/L (91-180) H 12/19/19 04:45 Troponin T < 0.010 ng/mL (0.00-0.029) 01/19/20 01:35 NT-Pro-B Natriuret Pep 3866 pg/mL (0-900) H 01/01/20 10:40 Total Protein 6.2 g/dL (6.3-8.2) L 02/08/20 19:00 Albumin 2.7 g/dL (3.9-5) L 02/08/20 19:00 Albumin/Globulin Ratio 0.8 % 02/08/20 19:00 Procalcitonin 0.44 ng/mL (<0.15) 02/03/20 12:49 Arterial Blood Glucose 99 mg/dL (65-95) H 01/12/20 13:58 Arterial Blood Ionized Calcium 4.8 mg/dL (4.6-5.3) 01/12/20 13:58 Urine Color Cecy (Yellow) 12/31/19 18:04 Urine Turbidity Clear (Clear) 12/31/19 18:04 Urine pH 5.0 (5.0-7.0) 12/31/19 18:04 Ur Specific [place] 1.023 (1.003-1.030) 12/31/19 18:04 Urine Protein <15 mg/dl mg/dL (Negative) 12/31/19 18:04 Urine Glucose (UA) Neg mg/dL (Negative) 12/31/19 18:04 Urine Ketones Neg mg/dL (Negative) 12/31/19 18:04 Urine Blood Neg (Negative) 12/31/19 18:04 Urine Bacteria (Auto) 1+ /HPF (Negative) 12/03/19 06:03 Urine Nitrite Neg (Negative) 12/31/19 18:04 Urine Bilirubin Neg (Negative) 12/31/19 18:04 Urine Urobilinogen 4.0 mg/dL (<2.0) 12/31/19 18:04 Ur Leukocyte Esterase Neg (Negative) 12/31/19 18:04 Urine WBC (Auto) 2.0 /HPF (0.0-6.0) 12/31/19 18:04 Urine RBC (Auto) 3.0 /HPF (0.0-6.0) 12/31/19 18:04 U Epithel Cells (Auto) 2.0 /HPF (0-13.0) 12/31/19 18:04 Urine Mucus 1+ /HPF 12/31/19 18:04 Urine Creatinine 57.4 mg/dL (0.1-20.0) H 01/31/20 Unknown Urine Sodium 59 mmol/L 01/31/20 Unknown Vancomycin Trough 14.2 ug/mL (5.0-20.0) 12/13/19 15:01 Coronavirus (PCR) Negative (Negative) 12/29/19 10:07 Hepatitis A IgM Ab Non-reactive (NonReactive) 02/05/20 06:37 Hep Bs Antigen Non-reactive (Negative) 02/05/20 06:37 Hep B Core IgM Ab Non-reactive (NonReactive) 02/05/20 06:37 Hepatitis C Antibody Non-reactive (NonReactive) 02/05/20 06:37 Blood Type O POSITIVE 01/21/20 13:00 Antibody Screen Negative 01/21/20 13:00 Microbiology: Microbiology 02/03/20 15:52 Peripheral/Venous Blood Culture - Final NO GROWTH AFTER 5 DAYS 02/03/20 15:52 Peripheral/Venous Blood Culture - Final NO GROWTH AFTER 5 DAYS - Diagnostic Impressions Diagnostic Impressions: Echocardiogram 11/29/19 07:37 Transthoracic Echocardiogram Indication: CHF BP: 116/72 HR: 33 Conclusions *The study is technically limited due to poor acoustic windows. *Global left ventricular systolic function is normal. *The estimated ejection fraction is 50-55%. *Mild concentric left ventricular hypertrophy is observed. *There is trace of mitral regurgitation. *There is mild tricuspid regurgitation. Findings Procedure Info: The study quality is poor. The study is technically limited due to poor acoustic windows. The study is technically limited due to patient body habitus. Left Ventricle: The left ventricular chamber size is normal. Mild concentric left ventricular hypertrophy is observed. Global left ventricular systolic function is normal. The estimated ejection fraction is 50-55%. Left Atrium: The left atrial chamber size is normal. Right Ventricle: The right ventricular cavity size is normal. Right Atrium: The right atrial cavity size is normal. Aortic Valve: The aortic valve leaflets are moderately thickened. There is trace of aortic regurgitation. There is no evidence of aortic stenosis. Mitral Valve: The mitral valve leaflets are mildly thickened. There is trace of mitral regurgitation. There is no evidence of mitral stenosis. Tricuspid Valve: There is mild tricuspid regurgitation. No pulmonary hypertension is noted. Pulmonic Valve: There is trace pulmonic regurgitation. Pericardium: There is no pericardial effusion. Aorta: There is no dilatation of the aortic root. Venous: The inferior vena cava appears normal in size. Contrast: Definity was used to optimize study. Intravenous contrast was used to enhance endocardial border definition. Measurements Chambers 2D Name Value Normal Range Ao root diameter (2D) 3.4 cm (2 - 3.7) Aortic Valve Name Value Normal Range AV Vmax 0.98 m/sec - AV VTI 16.76 cm - AV peak gradient 3.83 mmHg - AV mean gradient 2.57 mmHg - LVOT diameter 3.11 cm - LVOT Vmax 0.68 m/sec - LVOT VTI 11.52 cm - LVOT peak gradient 1.84 mmHg - LVOT mean gradient 1.27 mmHg - SV LVOT 87.31 ml - MALOU (continuity Vmax) 5.24 cm2 - MALOU (continuity VTI) 5.21 cm2 - Tricuspid Valve Name Value Normal Range IVC diameter 2.24 cm (1.2 - 2.3) Hoffman/IV: Voiding Method Indwelling Catheter IV Catheter Type [Right INT / Saline Lock Forearm] IV Catheter Type [Right Hand] Peripheral IV IV Catheter Type [Right Upper INT / Saline Lock arm] IV Catheter Type [Left Upper Mid-line arm] IV Catheter Type [Left Forearm INT / Saline Lock ] IV Catheter Type [Left Hand] Peripheral IV IV Catheter Type [Left Wrist] INT / Saline Lock IV Catheter Type [Right Peripheral IV Antecubital] Active Medications - Current Medications Current Medications: Generic Name Dose Route Start Last Admin Trade Name Freq PRN Reason Stop Dose Admin Acetaminophen 650 mg 12/31/19 11:43 02/03/20 12:54 Tylenol FEEDTUBE 650 mg Q6H PRN Administration Pain, Mild (1-3) Lipase/Protease/Amylase 1 each 01/09/20 12:[address] 10,500 Unit FEEDTUBE PRN PRN For Clogged Feeding Tube Apixaban 5 mg 01/22/20 22:00 02/08/20 21:12 Eliquis PO 5 mg Q12HR CAR Administration Protocol Atorvastatin Calcium 40 mg 01/20/20 22:00 02/08/20 21:13 Lipitor PO 40 mg QHS CAR Administration Clopidogrel Bisulfate 75 mg 01/21/20 06:00 02/08/20 09:16 Plavix PO 75 mg QDAY CAR Administration Dextrose 50 ml 01/31/20 18:51 02/05/20 00:56 D50w (25gm) Syringe IV 50 ml Q30MIN PRN Administration Hypoglycemia Protocol Fentanyl 50 mcg 02/01/20 15:52 Sublimaze IV Q10MIN PRN ANALGESIA Glycopyrrolate 2 mg 01/26/20 20:00 02/08/20 21:12 Glycopyrrolate PO 2 mg TID CAR Administration Haloperidol Lactate 5 mg 12/25/19 10:00 01/22/20 11:35 Haldol IV 5 mg Q6H PRN Administration Unrespon. to mult. doses BZD's Hydrophilic Ointment 1 applic 01/17/20 15:26 Vaseline Lip Therapy TP DIRECT PRN Dry Lips Fentanyl Citrate 2,000 mcg in 100 mls @ 5.65 mls/hr 02/01/20 16:00 02/03/20 11:31 Fentanyl Drip Premix IV 0 mcg/kg/hr TITR CAR 0 mls/hr Titration Protocol 1 MCG/KG/HR Insulin Human Regular 0 unit 02/01/20 18:00 02/09/20 06:00 Humulin R SUB-Q Not Given Q6H [facility] Protocol Lansoprazole 30 mg 02/05/20 16:00 02/08/20 09:16 Prevacid Solutab FEEDTUBE 30 mg QDAY CAR Administration Lorazepam 2 mg 12/25/19 10:00 01/31/20 14:22 Ativan IV 2 mg Q6H PRN Administration AGITATION Metoclopramide HCl 10 mg 02/08/20 12:00 02/09/20 06:04 Reglan IV 10 mg Q6HR CAR Administration Metoprolol Tartrate 5 mg 01/11/20 08:00 02/03/20 07:16 Metoprolol IV 5 mg Q6H PRN Administration SEE INSTRUCTIONS Metoprolol Tartrate 50 mg 02/05/20 12:00 02/09/20 06:04 Metoprolol PO 50 mg Q6HR ACR Administration Midodrine 15 mg 02/04/20 16:00 02/08/20 16:42 Proamatine PO 15 mg TID@0800,1200,1600 CAR Administration Morphine Sulfate 2 mg 01/06/20 15:41 02/09/20 00:32 Morphine IV 2 mg Q4H PRN Administration Pain, Moderate (4-6) Multi-Ingred Cream/Lotion/Oil/Oint 1 applic 02/01/20 15:52 Artificial Tears Ophth Oint OU Q4HR PRN Dry Eye(s) Nitroglycerin 0.4 mg 01/19/20 21:09 01/20/20 03:03 Nitrostat SL 0.4 mg .Q5MIN PRN Administration Chest Pain Ondansetron HCl 4 mg 01/05/20 14:37 02/07/20 00:10 Zofran IV 4 mg Q8H PRN Administration Nausea And Vomiting Polyethylene Glycol 17 gm 12/04/19 22:00 02/08/20 21:12 Miralax 3350 PO 17 gm QHS CAR Administration Quetiapine Fumarate 300 mg 01/13/20 22:00 02/08/20 21:13 Seroquel PO 300 mg BID CAR Administration Scopolamine 1 each 01/07/20 20:00 01/07/20 21:08 Transderm-Scop TD 1 each Q72HR CAR Administration Simple Syrup 15 ml 01/09/20 12:01 Simple Syrup FEEDTUBE PRN PRN Hypoglycemia Simple Syrup 30 ml 01/09/20 12:01 Simple Syrup FEEDTUBE PRN PRN Hypoglycemia Sodium Bicarbonate 325 mg 01/09/20 12:01 Sodium Bicarbonate FEEDTUBE PRN PRN For Clogged Feeding Tube Sodium Chloride 10 ml 11/24/19 10:00 02/08/20 21:13 Sodium Chloride Flush Syringe 10 Ml IV 10 ml BID CAR Administration Tamsulosin HCl 0.8 mg 12/20/19 22:00 02/08/20 21:13 Flomax PO 0.8 mg QHS CAR Administration Nutrition/Malnutrition Assess - Dietary Evaluation Nutrition/Malnutrition Findings: Nutrition Notes Start: 11/24/19 12:22 Freq: Status: Active Protocol: Document 02/04/20 12:28 AL (Rec: 02/04/20 12:29 AL [id number]) Co-Sign 02/04/20 12:28 MK Nutrition Notes Initial or Follow up Brief Note Current Diagnosis Coronary Artery Disease,Heart Failure,Respiratory Failure, Stroke,Hyperlipidemia Other Pertinent Diagnosis Partial SBO, pneu, ventilated trach Current Diet NPO Subjective/Other Information F/U for TF restart and weight. Per RN, patient is still NPO. TF is still on hold. NGT on LIS. Nutrition Intervention Follow-Up By: 02/09/20 Additional Comments F/U for POC
[2020-02-09] MEDS: LANSOPRAZOLE 30 MG SOLUTAB FEEDTUBE SCH (09:37)
[2020-02-09] MEDS: MIDODRINE 5 MG TAB PO SCH ×3 (09:37→17:52)
[2020-02-09] MEDS: GLYCOPYRROLATE 2 MG TAB PO SCH ×3 (09:37→22:43)
[2020-02-09] MEDS: QUEtiapine 100 MG TAB PO SCH ×2 (09:38→22:44)
[2020-02-09] MEDS: CLOPIDOGREL 75 MG TAB PO SCH (09:38)
[2020-02-09] MEDS: APIXABAN 5 MG TAB PO SCH ×2 (09:41→22:43)
--- NOTE | 2020-02-09 09:57 | Gastroenterology Progress Note ---
Assessment and Plan - Patient Problems (1) Abnormal liver enzymes Current Visit: Yes Status: Acute Plan to address problem: - hepatic panel from today pending. but previously stable. - acute hepatitis panel negative. - CT a/p with no liver abnormalities - possible drug induced with amiodarone, which is off now vs ischemic injury - LFTs trended upwards to AST/ALT 800s/900s on and now trending down for the past 2 days. - will monitor conservatively. (2) Nausea & vomiting Current Visit: Yes Status: Acute (3) Pancreatic lesion Current Visit: Yes Status: Acute Plan to address problem: - CT a/p showing ~ 2 cm pancreatic head lesion. this was previously seen in prior CT but enlarged. - recommend work up outpatient with MRI once patient recovers from acute issues. Follow up outpatient Will sign off at this time. Please call with questions. Subjective Date of service: 02/09/20 Principal diagnosis: Ac hypoxemic resp failure; Pneumonia; PUI COVID-19; CHF; COPD; HTN Interval history: Weaned off the vent on 02/08/2020. No vomiting episode. Objective - Constitutional Vitals: Temp Pulse Resp BP Pulse Ox 98.5 F 143 H 21 98/58 98 02/09/20 04:00 02/09/20 09:00 02/09/20 09:00 02/09/20 09:00 02/09/20 09:00 General appearance: no acute distress - EENT ENT: hearing intact - Respiratory Respiratory effort: normal - Cardiovascular Rhythm: irregularly irregular Heart Sounds: Present: S1 & S2 - Gastrointestinal General gastrointestinal: Present: soft, non-tender, non-distended - Integumentary Integumentary: Present: clear, warm - Neurologic Neurological: other (alert) - Labs CBC & Chem 7: 02/07/20 04:57 02/07/20 04:57 Labs: Laboratory Results - last 24 hr 02/08/20 02/08/20 02/08/20 12:14 17:44 19:00 POC Glucose 111 H 107 H Total Bilirubin 1.30 H Direct Bilirubin 0.9 H Indirect Bilirubin 0.4 AST 309 H ALT 650 H Alkaline Phosphatase 109 Total Protein 6.2 L Albumin 2.7 L Albumin/Globulin Ratio 0.8 02/08/20 02/09/20 23:40 05:41 POC Glucose 95 113 H Total Bilirubin Direct Bilirubin Indirect Bilirubin AST ALT Alkaline Phosphatase Total Protein Albumin Albumin/Globulin Ratio
--- NOTE | 2020-02-09 11:46 | Progress Note ---
Assessment and Plan Chest pain, resolved LHC done 01/22/20 widely patent previous LAD stent. We found mild nonobstructive atherosclerosis of the mid right coronary artery. Otherwise the rest of the coronary system was without significant atherosclerosis. LVEF 40 to 45%. There was some hypokinesis of the basal inferior wall suggestive of previous or recent infarct. ECG done 01/19/20 shows sinus rhythm with low voltage QRS and subtle ST segment elevations in the inferolateral leads that suggested possible concern for an acute injury at that time. Atrial fibrillation, paroxysmal on metoprolol amiodarone discontinued due to liver transaminases Ischemic Cardiomyopathy re-echo this presentation reports an LVEF 40-45%. Hx of CAD Multifocal pneumonia negative COVID-19 test x 3 Chronic Respiratory failure s/p trach History of COPD Acute PE/DVT -on Eliquis Anemia Partial SBO vs ileus Recommend: Continue metoprolol. In addition, will add digoxin for management for atrial fibrillation. Continue guideline directed medical therapy for coronary artery disease. Otherwise, conservative cardiac management. Subjective Date of service: 02/09/20 Principal diagnosis: Ac hypoxemic resp failure; Pneumonia; PUI COVID-19; CHF; COPD; HTN Interval history: Patient is resting in bed comfortably. Rapid atrial fibrillation seen on telemetry. Objective Vital Signs Temp Pulse Pulse Resp BP Pulse Ox Pulse Ox 02/09/20 10:00 124 H 25 H 102/76 100 02/09/20 09:00 143 H 21 98/58 98 02/09/20 08:00 150 H 27 H 96/74 98 02/09/20 07:56 99 02/09/20 07:53 100 02/09/20 07:44 146 H 15 102/75 100 02/09/20 07:00 140 H 25 H 110/78 100 02/09/20 06:04 137 H 106/76 02/09/20 06:00 143 H 22 106/76 99 02/09/20 05:00 146 H 24 97/73 100 02/09/20 04:00 98.5 F 129 H 133 H 15 100/71 99 02/09/20 03:58 117 H 103/74 100 02/09/20 03:10 100 02/09/20 03:00 150 H 29 H 108/78 100 02/09/20 02:06 143 H 106/62 100 02/09/20 02:00 145 H 28 H 94/72 100 02/09/20 01:00 149 H 23 112/88 98 02/09/20 00:32 150 H 112/88 02/09/20 00:07 144 H 83/68 97 02/09/20 00:00 97.7 F 146 H 138 H 22 83/68 99 02/08/20 23:00 136 H 22 79/67 100 02/08/20 22:23 97 02/08/20 22:04 130 H 19 99/73 99 02/08/20 22:00 140 H 21 99/73 100 02/08/20 21:00 130 H 21 103/77 90 02/08/20 20:00 97.6 F 128 H 136 H 18 89/65 100 02/08/20 19:00 120 H 19 96/69 100 02/08/20 18:00 122 H 20 96/69 97 02/08/20 17:52 115 H 94/69 02/08/20 17:00 135 H 20 93/70 100 02/08/20 16:42 99 02/08/20 16:41 99 02/08/20 16:00 98.5 F 141 H 133 H 23 106/77 98 02/08/20 15:00 131 H 21 97/70 100 02/08/20 14:00 133 H 18 96/69 99 02/08/20 13:00 134 H 19 107/66 100 02/08/20 12:00 98.0 F 137 H 137 H 18 101/76 100 02/08/20 11:47 125 H 103/67 - Physical Examination General: No Apparent Distress (ALERT), Other (s/p trach) HEENT: Positive: PERRL Neck: Positive: neck supple Cardiac: Positive: irregularly irregular Extremities: Absent: edema - Labs and Meds Cardiac Enzymes 02/08/20 Range/Units 19:00 AST 309 H (5-40) units/L Comprehensive Metabolic Panel 02/08/20 Range/Units 19:00 Direct Bilirubin 0.9 H (0-0.2) mg/dL Indirect Bilirubin 0.4 mg/dL AST 309 H (5-40) units/L ALT 650 H (7-56) units/L Alkaline Phosphatase 109 (35-129) units/L Total Protein 6.2 L (6.3-8.2) g/dL Albumin 2.7 L (3.9-5) g/dL - Allied health notes Allied health notes reviewed: nursing
[2020-02-09] MEDS: DIGOXIN 0.5 MG/2 ML INJ IV SCH ×2 (12:59→17:53)
--- NOTE | 2020-02-09 15:06 | Progress Note ---
Assessment and Plan Acute hypoxemic respiratory failure Bilateral pneumonia, community acquired. Acute LLL branch P.E. Acute DVT Person under investigation for COVID-19 infection. Acute congestive heart failure exacerbation. History of cerebrovascular accident. Acute chronic obstructive pulmonary disease exacerbation. Hypertension and hypertensive urgency at presentation. History of arthritis. Leukocytosis. Lactic acidosis. Oropharyngeal dysphagia - continue Reglan at 10 mg IV q6h re: Nausea - RTC t-piece trials as tolerated henceforth (PSV if fails t-piece) - ABG at 9pm tonight tro assess ventilation - continue care as below otherwise; - continue daily SAT's and SBT assessment as tolerated - continue Flomax at increased dose - antiinfective's per ID rec's - Midodrine for BP support - prn mucomyst nebs re: secretions - continue full anticoagulation with Apixaban - continue seroquel for anxiolysis / delirium - COVID isolation per facility protocol - prn diuresis while following electrolytes / I's & O's - continue to wean oxygen for O2 sat's > 92% - continue bronchodilators with routine trach care and pulmonary hygiene per RT - continue Robinul & Scopolamine for secretion control - VAP bundle addressed (Aspiration precautions, HOB >40) - continue to wean per pulmonary driven protocols - sedation target is RASS 0 to -1 - continue prn analgesia per CPOT score - follow clinically re: fever curves / trend WBC - Avoid delirium (no benzodiazepines if they can be avoided) - Maintain sleep-wake cycle - enteral nutrition at goal rate as tolerated - continue accucheck's with glycemic control per SSI for target blood glucose goal of 140-180 mg/dL while critically ill; Avoid hypoglycemia - for VTE he is on IV Heparin - continue stress ulcer prophylaxis with Famotidine - continue mobility protocols for pressure ulcer prophylaxis - continue fall precautions - continue wound care management per RN / WCT - Supportive transfusions to keep HgB>7g/dL - CXR's and ABG's prn - Continue to monitor neurologic function - Continue chronic home medications - Continue all supportive care ........ re-evaluate in am & prn CONDITION: CRITICAL PROGNOSIS: GUARDED CODE STATUS: FULL CODE The high probability of a clinically significant, sudden or life threatening deterioration of the [Respiratory, cardiovascular & neurological] system(s) required my full and direct attention, intervention and personal management. The aggregate critical care time was [34] minutes without overlap. Time includes spent on [x] Data Review and interpretation [x] Patient assessment and monitoring of vital signs [x] Documentation [x] Medication orders and management Subjective Date of service: 02/09/20 Principal diagnosis: Ac hypoxemic resp failure; Pneumonia; PUI COVID-19; CHF; COPD; HTN Interval history: Patient is seen today for: Acute hypoxemic respiratory failure; Adan. Pneumonia (CAP); PUI COVID-19 infection; AE-CHF; AE-COPD; H/O CVA; HTN Seen and examined at bedside; 24 hour events reviewed; nursing and respiratory care staff consulted; no adverse overnight events reported to me; resting peacefully in bed; on t-piece but tired out yesternight and rested on MVS; denies chest pains; thirsty Objective Vital Signs - 12hr 02/09/20 02/09/20 02/09/20 03:10 03:58 04:00 Temperature 98.5 F Pulse Rate 117 H 129 H Pulse Rate [ 133 H From Monitor] Respiratory 15 Rate Blood Pressure 103/74 100/71 O2 Sat by Pulse 100 99 Oximetry O2 Sat by Pulse 100 Oximetry [ Assessment] 02/09/20 02/09/20 02/09/20 05:00 06:00 06:04 Temperature Pulse Rate 146 H 143 H 137 H Pulse Rate [ From Monitor] Respiratory 24 22 Rate Blood Pressure 97/73 106/76 106/76 O2 Sat by Pulse 100 99 Oximetry O2 Sat by Pulse Oximetry [ Assessment] 02/09/20 02/09/20 02/09/20 07:00 07:44 07:53 Temperature Pulse Rate 140 H 146 H Pulse Rate [ From Monitor] Respiratory 25 H 15 Rate Blood Pressure 110/78 102/75 O2 Sat by Pulse 100 100 Oximetry O2 Sat by Pulse 100 Oximetry [ Assessment] 02/09/20 02/09/20 02/09/20 07:56 08:00 09:00 Temperature 98.9 F Pulse Rate 150 H 143 H Pulse Rate [ From Monitor] Respiratory 27 H 21 Rate Blood Pressure 96/74 98/58 O2 Sat by Pulse 99 98 98 Oximetry O2 Sat by Pulse Oximetry [ Assessment] 02/09/20 02/09/20 02/09/20 10:00 11:00 12:00 Temperature 97.5 F L Pulse Rate 124 H 147 H 149 H Pulse Rate [ From Monitor] Respiratory 25 H 22 24 Rate Blood Pressure 102/76 97/78 109/78 O2 Sat by Pulse 100 98 96 Oximetry O2 Sat by Pulse Oximetry [ Assessment] 02/09/20 02/09/20 02/09/20 12:59 13:00 13:02 Temperature Pulse Rate 141 H 148 H 142 H Pulse Rate [ From Monitor] Respiratory 20 Rate Blood Pressure 112/79 118/74 118/74 O2 Sat by Pulse 99 Oximetry O2 Sat by Pulse Oximetry [ Assessment] 02/09/20 14:00 Temperature Pulse Rate 131 H Pulse Rate [ From Monitor] Respiratory 22 Rate Blood Pressure 100/73 O2 Sat by Pulse 97 Oximetry O2 Sat by Pulse Oximetry [ Assessment] Constitutional: no acute distress, other (elelelderly and obese male, normocephalic with mildly increased respiratory effort at rest) Eyes: non-icteric ENT: oropharynx moist, other (+ midline tracheostomy) Neck: supple, no JVD Effort: mildly labored Ascultation: Bilateral: diminished breath sounds, rhonchi, other (tracheal secr etions moderate) Percussion: Bilateral: not dull Cardiovascular: irregular rhythm, other (flow murmur) Gastrointestinal: normoactive bowel sounds, soft, non-tender, non-distended (protuberant), other (protuberant; PEG in place) Integumentary: normal Extremities: no cyanosis, pulses normal, no ischemia or petechiae, edema (bilateral upper ) Neurologic: non-focal exam (moves extremities), pupils equal and round, CN II- XII normal, motor strength normal and (weak) Psychiatric: mood appropriate, affect normal CBC and BMP: 02/07/20 04:57 02/07/20 04:57 ABG, PT/INR, D-dimer: ABG ABG pH 7.447 pH Units (7.350-7.450) 01/25/20 21:02 POC ABG pCO2 45.6 mmHg (32.0-48.0) 01/12/20 13:58 ABG pCO2 47.0 mm Hg 01/25/20 21:02 POC ABG pO2 76.6 mmHg (83-108) L 01/12/20 13:58 ABG pO2 57.5 mm Hg (80.0-90.0) L 01/25/20 21:02 POC ABG HCO3 31.2 01/12/20 13:58 ABG O2 Saturation 90.3 % (95.0-99.0) L 01/25/20 21:02 PT/INR, D-dimer PT 27.0 Sec. (12.2-14.9) H 02/07/20 15:03 INR 2.46 (0.87-1.13) H 02/07/20 15:03 Abnormal lab findings: Abnormal Labs 11/24/19 11/24/19 11/24/19 02:53 02:53 03:45 WBC 14.3 H RBC Hgb Hct MCHC RDW 17.2 H MCV MCH Lymph % (Auto) [place] % (Auto) [place] # Eos # Lymph # (Auto) [place] # (Auto) Eos # (Auto) Seg Neutrophils % Seg Neuts % (Manual) Baso # (Auto) Lymphocytes % (Manual) Monocytes % (Manual) Eosinophils % (Manual) Basophils % (Manual) Seg Neutrophils # Seg Neutrophils # Man 8.3 H Lymphocytes # (Manual) Monocytes # (Manual) 0.9 H Eosinophils # (Manual) Nucleated RBC % Basophils # (Manual) PT INR APTT Heparin Anti-Xa Level ABG pH 7.313 L POC ABG pO2 ABG pO2 102.8 H ABG HCO3 ABG O2 Saturation ABG Base Excess -2.9 L POC ABG pCO2 ABG Hemoglobin ABG Oxyhemoglobin ABG Glucose Oxyhemoglobin 93.9 L Sodium Potassium Chloride Carbon Dioxide BUN Creatinine Glucose 195 H POC Glucose Lactic Acid Calcium Phosphorus Magnesium AST ALT Lactate Dehydrogenase Total Bilirubin Direct Bilirubin CK-MB (CK-2) 4.3 H C-Reactive Protein NT-Pro-B Natriuret Pep 1181 H Total Protein Albumin Arterial Blood Glucose Urine WBC (Auto) Urine Creatinine 11/24/19 11/24/19 11/24/19 04:53 04:53 10:37 WBC RBC Hgb Hct MCHC RDW MCV MCH Lymph % (Auto) [place] % (Auto) [place] # Eos # Lymph # (Auto) [place] # (Auto) Eos # (Auto) Seg Neutrophils % Seg Neuts % (Manual) Baso # (Auto) Lymphocytes % (Manual) Monocytes % (Manual) Eosinophils % (Manual) Basophils % (Manual) Seg Neutrophils # Seg Neutrophils # Man Lymphocytes # (Manual) Monocytes # (Manual) Eosinophils # (Manual) Nucleated RBC % Basophils # (Manual) PT INR APTT Heparin Anti-Xa Level ABG pH POC ABG pO2 ABG pO2 ABG HCO3 ABG O2 Saturation ABG Base Excess POC ABG pCO2 ABG Hemoglobin ABG Oxyhemoglobin ABG Glucose Oxyhemoglobin Sodium Potassium Chloride Carbon Dioxide BUN Creatinine Glucose 162 H POC Glucose Lactic Acid 2.40 H* 2.50 H* Calcium Phosphorus Magnesium AST ALT Lactate Dehydrogenase 240 H Total Bilirubin Direct Bilirubin CK-MB (CK-2) C-Reactive Protein NT-Pro-B Natriuret Pep Total Protein Albumin Arterial Blood Glucose Urine WBC (Auto) Urine Creatinine 11/24/19 11/24/19 11/24/19 12:21 14:50 19:54 WBC RBC Hgb Hct MCHC RDW MCV MCH Lymph % (Auto) [place] % (Auto) [place] # Eos # Lymph # (Auto) [place] # (Auto) Eos # (Auto) Seg Neutrophils % Seg Neuts % (Manual) Baso # (Auto) Lymphocytes % (Manual) Monocytes % (Manual) Eosinophils % (Manual) Basophils % (Manual) Seg Neutrophils # Seg Neutrophils # Man Lymphocytes # (Manual) Monocytes # (Manual) Eosinophils # (Manual) Nucleated RBC % Basophils # (Manual) PT INR APTT Heparin Anti-Xa Level ABG pH POC ABG pO2 ABG pO2 ABG HCO3 ABG O2 Saturation ABG Base Excess POC ABG pCO2 ABG Hemoglobin ABG Oxyhemoglobin ABG Glucose Oxyhemoglobin Sodium Potassium Chloride Carbon Dioxide BUN Creatinine Glucose POC Glucose 145 H 143 H 124 H Lactic Acid Calcium Phosphorus Magnesium AST ALT Lactate Dehydrogenase Total Bilirubin Direct Bilirubin CK-MB (CK-2) C-Reactive Protein NT-Pro-B Natriuret Pep Total Protein Albumin Arterial Blood Glucose Urine WBC (Auto) Urine Creatinine 11/25/19 11/25/19 11/25/19 00:18 03:18 05:11 WBC 13.7 H RBC Hgb Hct MCHC RDW 17.1 H MCV MCH Lymph % (Auto) 10.8 L [place] % (Auto) 8.7 H [place] # 1.2 H Eos # Lymph # (Auto) [place] # (Auto) Eos # (Auto) Seg Neutrophils % 80.2 H Seg Neuts % (Manual) Baso # (Auto) Lymphocytes % (Manual) Monocytes % (Manual) Eosinophils % (Manual) Basophils % (Manual) Seg Neutrophils # 11.0 H Seg Neutrophils # Man Lymphocytes # (Manual) Monocytes # (Manual) Eosinophils # (Manual) Nucleated RBC % Basophils # (Manual) PT INR APTT Heparin Anti-Xa Level ABG pH 7.333 L POC ABG pO2 ABG pO2 61.2 L ABG HCO3 ABG O2 Saturation 90.2 L ABG Base Excess POC ABG pCO2 ABG Hemoglobin 13.7 L ABG Oxyhemoglobin ABG Glucose Oxyhemoglobin 88.2 L Sodium Potassium Chloride Carbon Dioxide BUN Creatinine Glucose POC Glucose 109 H Lactic Acid Calcium Phosphorus Magnesium AST ALT Lactate Dehydrogenase Total Bilirubin Direct Bilirubin CK-MB (CK-2) C-Reactive Protein NT-Pro-B Natriuret Pep Total Protein Albumin Arterial Blood Glucose Urine WBC (Auto) Urine Creatinine 11/25/19 11/25/19 11/26/19 05:11 11:40 03:12 WBC RBC Hgb Hct MCHC RDW MCV MCH Lymph % (Auto) [place] % (Auto) [place] # Eos # Lymph # (Auto) [place] # (Auto) Eos # (Auto) Seg Neutrophils % Seg Neuts % (Manual) Baso # (Auto) Lymphocytes % (Manual) Monocytes % (Manual) Eosinophils % (Manual) Basophils % (Manual) Seg Neutrophils # Seg Neutrophils # Man Lymphocytes # (Manual) Monocytes # (Manual) Eosinophils # (Manual) Nucleated RBC % Basophils # (Manual) PT INR APTT Heparin Anti-Xa Level ABG pH POC ABG pO2 ABG pO2 155.1 H ABG HCO3 27.8 H ABG O2 Saturation ABG Base Excess POC ABG pCO2 ABG Hemoglobin 12.2 L ABG Oxyhemoglobin ABG Glucose Oxyhemoglobin Sodium Potassium Chloride Carbon Dioxide BUN 23 H Creatinine Glucose 110 H POC Glucose 108 H Lactic Acid Calcium Phosphorus Magnesium AST ALT Lactate Dehydrogenase Total Bilirubin Direct Bilirubin CK-MB (CK-2) C-Reactive Protein NT-Pro-B Natriuret Pep Total Protein Albumin Arterial Blood Glucose Urine WBC (Auto) Urine Creatinine 11/26/19 11/26/19 11/26/19 06:17 10:43 10:43 WBC 11.4 H RBC Hgb Hct MCHC RDW 17.1 H MCV MCH Lymph % (Auto) [place] % (Auto) [place] # Eos # Lymph # (Auto) [place] # (Auto) Eos # (Auto) Seg Neutrophils % Seg Neuts % (Manual) Baso # (Auto) Lymphocytes % (Manual) Monocytes % (Manual) Eosinophils % (Manual) Basophils % (Manual) Seg Neutrophils # Seg Neutrophils # Man Lymphocytes # (Manual) Monocytes # (Manual) Eosinophils # (Manual) Nucleated RBC % Basophils # (Manual) PT INR APTT Heparin Anti-Xa Level ABG pH POC ABG pO2 ABG pO2 ABG HCO3 ABG O2 Saturation ABG Base Excess POC ABG pCO2 ABG Hemoglobin ABG Oxyhemoglobin ABG Glucose Oxyhemoglobin Sodium Potassium Chloride Carbon Dioxide BUN 29 H Creatinine Glucose POC Glucose 107 H Lactic Acid Calcium Phosphorus Magnesium AST ALT Lactate Dehydrogenase Total Bilirubin Direct Bilirubin CK-MB (CK-2) C-Reactive Protein NT-Pro-B Natriuret Pep Total Protein Albumin Arterial Blood Glucose Urine WBC (Auto) Urine Creatinine 11/26/19 11/27/19 11/27/19 17:11 01:53 04:11 WBC RBC Hgb Hct MCHC RDW MCV MCH Lymph % (Auto) [place] % (Auto) [place] # Eos # Lymph # (Auto) [place] # (Auto) Eos # (Auto) Seg Neutrophils % Seg Neuts % (Manual) Baso # (Auto) Lymphocytes % (Manual) Monocytes % (Manual) Eosinophils % (Manual) Basophils % (Manual) Seg Neutrophils # Seg Neutrophils # Man Lymphocytes # (Manual) Monocytes # (Manual) Eosinophils # (Manual) Nucleated RBC % Basophils # (Manual) PT INR APTT Heparin Anti-Xa Level ABG pH POC ABG pO2 ABG pO2 ABG HCO3 29.2 H ABG O2 Saturation ABG Base Excess 3.4 H POC ABG pCO2 ABG Hemoglobin 13.3 L ABG Oxyhemoglobin ABG Glucose Oxyhemoglobin 94.5 L Sodium Potassium Chloride Carbon Dioxide BUN Creatinine Glucose POC Glucose 113 H 108 H Lactic Acid Calcium Phosphorus Magnesium AST ALT Lactate Dehydrogenase Total Bilirubin Direct Bilirubin CK-MB (CK-2) C-Reactive Protein NT-Pro-B Natriuret Pep Total Protein Albumin Arterial Blood Glucose Urine WBC (Auto) Urine Creatinine 11/27/19 11/28/19 11/28/19 05:27 05:00 05:25 WBC RBC Hgb Hct MCHC RDW MCV MCH Lymph % (Auto) [place] % (Auto) [place] # Eos # Lymph # (Auto) [place] # (Auto) Eos # (Auto) Seg Neutrophils % Seg Neuts % (Manual) Baso # (Auto) Lymphocytes % (Manual) Monocytes % (Manual) Eosinophils % (Manual) Basophils % (Manual) Seg Neutrophils # Seg Neutrophils # Man Lymphocytes # (Manual) Monocytes # (Manual) Eosinophils # (Manual) Nucleated RBC % Basophils # (Manual) PT INR APTT Heparin Anti-Xa Level ABG pH POC ABG pO2 68.1 L ABG pO2 ABG HCO3 ABG O2 Saturation ABG Base Excess POC ABG pCO2 ABG Hemoglobin ABG Oxyhemoglobin 91.2 L ABG Glucose Oxyhemoglobin Sodium Potassium Chloride Carbon Dioxide BUN Creatinine Glucose POC Glucose 111 H 110 H Lactic Acid Calcium Phosphorus Magnesium AST ALT Lactate Dehydrogenase Total Bilirubin Direct Bilirubin CK-MB (CK-2) C-Reactive Protein NT-Pro-B Natriuret Pep Total Protein Albumin Arterial Blood Glucose Urine WBC (Auto) Urine Creatinine 11/28/19 11/28/19 11/28/19 12:08 13:47 13:47 WBC 11.3 H RBC Hgb Hct MCHC RDW 16.1 H MCV MCH Lymph % (Auto) [place] % (Auto) 9.9 H [place] # 1.1 H Eos # Lymph # (Auto) [place] # (Auto) Eos # (Auto) Seg Neutrophils % 71.4 H Seg Neuts % (Manual) Baso # (Auto) Lymphocytes % (Manual) Monocytes % (Manual) Eosinophils % (Manual) Basophils % (Manual) Seg Neutrophils # 8.1 H Seg Neutrophils # Man Lymphocytes # (Manual) Monocytes # (Manual) Eosinophils # (Manual) Nucleated RBC % Basophils # (Manual) PT INR APTT Heparin Anti-Xa Level ABG pH POC ABG pO2 ABG pO2 ABG HCO3 ABG O2 Saturation ABG Base Excess POC ABG pCO2 ABG Hemoglobin ABG Oxyhemoglobin ABG Glucose Oxyhemoglobin Sodium Potassium Chloride Carbon Dioxide BUN 23 H Creatinine Glucose 123 H POC Glucose 112 H Lactic Acid Calcium Phosphorus Magnesium AST ALT Lactate Dehydrogenase Total Bilirubin Direct Bilirubin CK-MB (CK-2) C-Reactive Protein NT-Pro-B Natriuret Pep Total Protein Albumin 3.7 L Arterial Blood Glucose Urine WBC (Auto) Urine Creatinine 11/28/19 11/29/19 11/29/19 17:26 03:55 17:04 WBC RBC Hgb Hct MCHC RDW MCV MCH Lymph % (Auto) [place] % (Auto) [place] # Eos # Lymph # (Auto) [place] # (Auto) Eos # (Auto) Seg Neutrophils % Seg Neuts % (Manual) Baso # (Auto) Lymphocytes % (Manual) Monocytes % (Manual) Eosinophils % (Manual) Basophils % (Manual) Seg Neutrophils # Seg Neutrophils # Man Lymphocytes # (Manual) Monocytes # (Manual) Eosinophils # (Manual) Nucleated RBC % Basophils # (Manual) PT INR APTT Heparin Anti-Xa Level ABG pH POC ABG pO2 ABG pO2 65.7 L ABG HCO3 28.3 H ABG O2 Saturation 93.9 L ABG Base Excess 3.6 H POC ABG pCO2 ABG Hemoglobin 13.3 L ABG Oxyhemoglobin ABG Glucose Oxyhemoglobin 91.5 L Sodium Potassium Chloride Carbon Dioxide BUN Creatinine Glucose POC Glucose 123 H 119 H Lactic Acid Calcium Phosphorus Magnesium AST ALT Lactate Dehydrogenase Total Bilirubin Direct Bilirubin CK-MB (CK-2) C-Reactive Protein NT-Pro-B Natriuret Pep Total Protein Albumin Arterial Blood Glucose Urine WBC (Auto) Urine Creatinine 11/30/19 11/30/19 11/30/19 04:17 04:17 04:56 WBC 13.4 H RBC Hgb Hct MCHC RDW 15.6 H MCV MCH Lymph % (Auto) [place] % (Auto) [place] # Eos # Lymph # (Auto) [place] # (Auto) Eos # (Auto) Seg Neutrophils % Seg Neuts % (Manual) Baso # (Auto) Lymphocytes % (Manual) Monocytes % (Manual) Eosinophils % (Manual) Basophils % (Manual) Seg Neutrophils # Seg Neutrophils # Man Lymphocytes # (Manual) Monocytes # (Manual) Eosinophils # (Manual) Nucleated RBC % Basophils # (Manual) PT INR APTT Heparin Anti-Xa Level ABG pH POC ABG pO2 ABG pO2 56.3 L ABG HCO3 29.3 H ABG O2 Saturation 91.5 L ABG Base Excess 4.7 H POC ABG pCO2 ABG Hemoglobin 12.1 L ABG Oxyhemoglobin ABG Glucose Oxyhemoglobin 89.2 L Sodium 147 H Potassium Chloride Carbon Dioxide BUN 30 H Creatinine Glucose 124 H POC Glucose Lactic Acid Calcium Phosphorus Magnesium AST ALT Lactate Dehydrogenase Total Bilirubin Direct Bilirubin CK-MB (CK-2) C-Reactive Protein NT-Pro-B Natriuret Pep Total Protein Albumin 3.8 L Arterial Blood Glucose Urine WBC (Auto) Urine Creatinine 11/30/19 11/30/19 11/30/19 05:51 11:54 18:17 WBC RBC Hgb Hct MCHC RDW MCV MCH Lymph % (Auto) [place] % (Auto) [place] # Eos # Lymph # (Auto) [place] # (Auto) Eos # (Auto) Seg Neutrophils % Seg Neuts % (Manual) Baso # (Auto) Lymphocytes % (Manual) Monocytes % (Manual) Eosinophils % (Manual) Basophils % (Manual) Seg Neutrophils # Seg Neutrophils # Man Lymphocytes # (Manual) Monocytes # (Manual) Eosinophils # (Manual) Nucleated RBC % Basophils # (Manual) PT INR APTT Heparin Anti-Xa Level ABG pH POC ABG pO2 ABG pO2 ABG HCO3 ABG O2 Saturation ABG Base Excess POC ABG pCO2 ABG Hemoglobin ABG Oxyhemoglobin ABG Glucose Oxyhemoglobin Sodium Potassium Chloride Carbon Dioxide BUN Creatinine Glucose POC Glucose 127 H 115 H 143 H Lactic Acid Calcium Phosphorus Magnesium AST ALT Lactate Dehydrogenase Total Bilirubin Direct Bilirubin CK-MB (CK-2) C-Reactive Protein NT-Pro-B Natriuret Pep Total Protein Albumin Arterial Blood Glucose Urine WBC (Auto) Urine Creatinine 12/01/19 12/01/19 12/01/19 01:18 05:22 12:16 WBC RBC Hgb Hct MCHC RDW MCV MCH Lymph % (Auto) [place] % (Auto) [place] # Eos # Lymph # (Auto) [place] # (Auto) Eos # (Auto) Seg Neutrophils % Seg Neuts % (Manual) Baso # (Auto) Lymphocytes % (Manual) Monocytes % (Manual) Eosinophils % (Manual) Basophils % (Manual) Seg Neutrophils # Seg Neutrophils # Man Lymphocytes # (Manual) Monocytes # (Manual) Eosinophils # (Manual) Nucleated RBC % Basophils # (Manual) PT INR APTT Heparin Anti-Xa Level ABG pH POC ABG pO2 ABG pO2 ABG HCO3 ABG O2 Saturation ABG Base Excess POC ABG pCO2 ABG Hemoglobin ABG Oxyhemoglobin ABG Glucose Oxyhemoglobin Sodium Potassium 3.5 L Chloride 107.8 H Carbon Dioxide BUN 37 H Creatinine Glucose 157 H POC Glucose 118 H 148 H Lactic Acid Calcium 8.2 L D Phosphorus Magnesium AST 48 H ALT 60 H Lactate Dehydrogenase 194 H Total Bilirubin Direct Bilirubin CK-MB (CK-2) C-Reactive Protein 8.50 H NT-Pro-B Natriuret Pep Total Protein 5.5 L Albumin 2.8 L Arterial Blood Glucose Urine WBC (Auto) Urine Creatinine 12/01/19 12/02/19 12/02/19 18:04 00:05 05:16 WBC 11.4 H RBC Hgb Hct MCHC RDW 15.9 H MCV MCH Lymph % (Auto) [place] % (Auto) 9.9 H [place] # 1.1 H Eos # Lymph # (Auto) [place] # (Auto) Eos # (Auto) Seg Neutrophils % 70.3 H Seg Neuts % (Manual) Baso # (Auto) Lymphocytes % (Manual) Monocytes % (Manual) Eosinophils % (Manual) Basophils % (Manual) Seg Neutrophils # 8.0 H Seg Neutrophils # Man Lymphocytes # (Manual) Monocytes # (Manual) Eosinophils # (Manual) Nucleated RBC % Basophils # (Manual) PT INR APTT Heparin Anti-Xa Level ABG pH POC ABG pO2 ABG pO2 ABG HCO3 ABG O2 Saturation ABG Base Excess POC ABG pCO2 ABG Hemoglobin ABG Oxyhemoglobin ABG Glucose Oxyhemoglobin Sodium Potassium Chloride Carbon Dioxide BUN Creatinine Glucose POC Glucose 143 H 107 H Lactic Acid Calcium Phosphorus Magnesium AST ALT Lactate Dehydrogenase Total Bilirubin Direct Bilirubin CK-MB (CK-2) C-Reactive Protein NT-Pro-B Natriuret Pep Total Protein Albumin Arterial Blood Glucose Urine WBC (Auto) Urine Creatinine 12/02/19 12/02/19 12/02/19 05:16 06:03 11:52 WBC RBC Hgb Hct MCHC RDW MCV MCH Lymph % (Auto) [place] % (Auto) [place] # Eos # Lymph # (Auto) [place] # (Auto) Eos # (Auto) Seg Neutrophils % Seg Neuts % (Manual) Baso # (Auto) Lymphocytes % (Manual) Monocytes % (Manual) Eosinophils % (Manual) Basophils % (Manual) Seg Neutrophils # Seg Neutrophils # Man Lymphocytes # (Manual) Monocytes # (Manual) Eosinophils # (Manual) Nucleated RBC % Basophils # (Manual) PT INR APTT Heparin Anti-Xa Level ABG pH POC ABG pO2 ABG pO2 ABG HCO3 ABG O2 Saturation ABG Base Excess POC ABG pCO2 ABG Hemoglobin ABG Oxyhemoglobin ABG Glucose Oxyhemoglobin Sodium 146 H Potassium Chloride Carbon Dioxide BUN 28 H Creatinine Glucose 123 H POC Glucose 110 H 152 H Lactic Acid Calcium Phosphorus Magnesium AST ALT Lactate Dehydrogenase Total Bilirubin Direct Bilirubin CK-MB (CK-2) C-Reactive Protein NT-Pro-B Natriuret Pep Total Protein Albumin Arterial Blood Glucose Urine WBC (Auto) Urine Creatinine 0912/02/19 12/02/19 12:58 17:58 23:36 WBC RBC Hgb Hct MCHC RDW MCV MCH Lymph % (Auto) [place] % (Auto) [place] # Eos # Lymph # (Auto) [place] # (Auto) Eos # (Auto) Seg Neutrophils % Seg Neuts % (Manual) Baso # (Auto) Lymphocytes % (Manual) Monocytes % (Manual) Eosinophils % (Manual) Basophils % (Manual) Seg Neutrophils # Seg Neutrophils # Man Lymphocytes # (Manual) Monocytes # (Manual) Eosinophils # (Manual) Nucleated RBC % Basophils # (Manual) PT INR APTT Heparin Anti-Xa Level ABG pH POC ABG pO2 78.1 L ABG pO2 ABG HCO3 ABG O2 Saturation ABG Base Excess POC ABG pCO2 ABG Hemoglobin ABG Oxyhemoglobin ABG Glucose Oxyhemoglobin Sodium Potassium Chloride Carbon Dioxide BUN Creatinine Glucose POC Glucose 120 H 123 H Lactic Acid Calcium Phosphorus Magnesium AST ALT Lactate Dehydrogenase Total Bilirubin Direct Bilirubin CK-MB (CK-2) C-Reactive Protein NT-Pro-B Natriuret Pep Total Protein Albumin Arterial Blood Glucose Urine WBC (Auto) Urine Creatinine 12/03/19 12/03/19 12/03/19 06:03 06:14 11:46 WBC RBC Hgb Hct MCHC RDW MCV MCH Lymph % (Auto) [place] % (Auto) [place] # Eos # Lymph # (Auto) [place] # (Auto) Eos # (Auto) Seg Neutrophils % Seg Neuts % (Manual) Baso # (Auto) Lymphocytes % (Manual) Monocytes % (Manual) Eosinophils % (Manual) Basophils % (Manual) Seg Neutrophils # Seg Neutrophils # Man Lymphocytes # (Manual) Monocytes # (Manual) Eosinophils # (Manual) Nucleated RBC % Basophils # (Manual) PT INR APTT Heparin Anti-Xa Level ABG pH POC ABG pO2 ABG pO2 ABG HCO3 ABG O2 Saturation ABG Base Excess POC ABG pCO2 ABG Hemoglobin ABG Oxyhemoglobin ABG Glucose Oxyhemoglobin Sodium Potassium Chloride Carbon Dioxide BUN Creatinine Glucose POC Glucose 142 H 130 H Lactic Acid Calcium Phosphorus Magnesium AST ALT Lactate Dehydrogenase Total Bilirubin Direct Bilirubin CK-MB (CK-2) C-Reactive Protein NT-Pro-B Natriuret Pep Total Protein Albumin Arterial Blood Glucose Urine WBC (Auto) 8.0 H Urine Creatinine 12/03/19 12/03/19 12/04/19 15:50 17:39 00:04 WBC RBC Hgb Hct MCHC RDW MCV MCH Lymph % (Auto) [place] % (Auto) [place] # Eos # Lymph # (Auto) [place] # (Auto) Eos # (Auto) Seg Neutrophils % Seg Neuts % (Manual) Baso # (Auto) Lymphocytes % (Manual) Monocytes % (Manual) Eosinophils % (Manual) Basophils % (Manual) Seg Neutrophils # Seg Neutrophils # Man Lymphocytes # (Manual) Monocytes # (Manual) Eosinophils # (Manual) Nucleated RBC % Basophils # (Manual) PT INR APTT Heparin Anti-Xa Level ABG pH POC ABG pO2 ABG pO2 ABG HCO3 ABG O2 Saturation ABG Base Excess POC ABG pCO2 ABG Hemoglobin ABG Oxyhemoglobin ABG Glucose Oxyhemoglobin Sodium Potassium Chloride Carbon Dioxide BUN Creatinine Glucose POC Glucose 146 H 133 H Lactic Acid Calcium Phosphorus 2.40 L Magnesium AST ALT Lactate Dehydrogenase Total Bilirubin Direct Bilirubin CK-MB (CK-2) C-Reactive Protein NT-Pro-B Natriuret Pep Total Protein Albumin Arterial Blood Glucose Urine WBC (Auto) Urine Creatinine 12/04/19 12/04/19 12/04/19 03:58 03:58 05:22 WBC 12.5 H RBC Hgb 11.2 L Hct 35.2 L MCHC RDW 16.0 H MCV MCH Lymph % (Auto) [place] % (Auto) 9.6 H [place] # 1.2 H Eos # 0.5 H Lymph # (Auto) [place] # (Auto) Eos # (Auto) Seg Neutrophils % Seg Neuts % (Manual) Baso # (Auto) Lymphocytes % (Manual) Monocytes % (Manual) Eosinophils % (Manual) Basophils % (Manual) Seg Neutrophils # 8.6 H Seg Neutrophils # Man Lymphocytes # (Manual) Monocytes # (Manual) Eosinophils # (Manual) Nucleated RBC % Basophils # (Manual) PT INR APTT Heparin Anti-Xa Level ABG pH POC ABG pO2 ABG pO2 ABG HCO3 ABG O2 Saturation ABG Base Excess POC ABG pCO2 ABG Hemoglobin ABG Oxyhemoglobin ABG Glucose Oxyhemoglobin Sodium 146 H Potassium Chloride 108.6 H Carbon Dioxide BUN 30 H Creatinine 0.7 L Glucose 121 H POC Glucose 132 H Lactic Acid Calcium Phosphorus Magnesium AST ALT Lactate Dehydrogenase Total Bilirubin Direct Bilirubin CK-MB (CK-2) C-Reactive Protein NT-Pro-B Natriuret Pep Total Protein Albumin Arterial Blood Glucose Urine WBC (Auto) Urine Creatinine 12/04/19 12/04/19 12/05/19 13:26 18:43 00:19 WBC RBC Hgb Hct MCHC RDW MCV MCH Lymph % (Auto) [place] % (Auto) [place] # Eos # Lymph # (Auto) [place] # (Auto) Eos # (Auto) Seg Neutrophils % Seg Neuts % (Manual) Baso # (Auto) Lymphocytes % (Manual) Monocytes % (Manual) Eosinophils % (Manual) Basophils % (Manual) Seg Neutrophils # Seg Neutrophils # Man Lymphocytes # (Manual) Monocytes # (Manual) Eosinophils # (Manual) Nucleated RBC % Basophils # (Manual) PT INR APTT Heparin Anti-Xa Level ABG pH POC ABG pO2 ABG pO2 ABG HCO3 ABG O2 Saturation ABG Base Excess POC ABG pCO2 ABG Hemoglobin ABG Oxyhemoglobin ABG Glucose Oxyhemoglobin Sodium Potassium Chloride Carbon Dioxide BUN Creatinine Glucose POC Glucose 185 H 156 H 150 H Lactic Acid Calcium Phosphorus Magnesium AST ALT Lactate Dehydrogenase Total Bilirubin Direct Bilirubin CK-MB (CK-2) C-Reactive Protein NT-Pro-B Natriuret Pep Total Protein Albumin Arterial Blood Glucose Urine WBC (Auto) Urine Creatinine 12/05/19 12/05/19 12/05/19 03:37 03:37 05:14 WBC 16.3 H RBC Hgb 11.4 L Hct MCHC RDW 15.6 H MCV MCH Lymph % (Auto) 9.9 L [place] % (Auto) 9.7 H [place] # 1.6 H Eos # Lymph # (Auto) [place] # (Auto) Eos # (Auto) Seg Neutrophils % 78.0 H Seg Neuts % (Manual) Baso # (Auto) Lymphocytes % (Manual) Monocytes % (Manual) Eosinophils % (Manual) Basophils % (Manual) Seg Neutrophils # 12.7 H Seg Neutrophils # Man Lymphocytes # (Manual) Monocytes # (Manual) Eosinophils # (Manual) Nucleated RBC % Basophils # (Manual) PT INR APTT Heparin Anti-Xa Level ABG pH POC ABG pO2 ABG pO2 ABG HCO3 ABG O2 Saturation ABG Base Excess POC ABG pCO2 ABG Hemoglobin ABG Oxyhemoglobin ABG Glucose Oxyhemoglobin Sodium 146 H Potassium Chloride 107.2 H Carbon Dioxide BUN 27 H Creatinine 0.7 L Glucose 171 H POC Glucose 168 H Lactic Acid Calcium Phosphorus Magnesium AST ALT Lactate Dehydrogenase Total Bilirubin Direct Bilirubin CK-MB (CK-2) C-Reactive Protein NT-Pro-B Natriuret Pep Total Protein Albumin Arterial Blood Glucose Urine WBC (Auto) Urine Creatinine 12/05/19 12/05/19 12/05/19 12:31 18:10 23:58 WBC RBC Hgb Hct MCHC RDW MCV MCH Lymph % (Auto) [place] % (Auto) [place] # Eos # Lymph # (Auto) [place] # (Auto) Eos # (Auto) Seg Neutrophils % Seg Neuts % (Manual) Baso # (Auto) Lymphocytes % (Manual) Monocytes % (Manual) Eosinophils % (Manual) Basophils % (Manual) Seg Neutrophils # Seg Neutrophils # Man Lymphocytes # (Manual) Monocytes # (Manual) Eosinophils # (Manual) Nucleated RBC % Basophils # (Manual) PT INR APTT Heparin Anti-Xa Level ABG pH POC ABG pO2 ABG pO2 ABG HCO3 ABG O2 Saturation ABG Base Excess POC ABG pCO2 ABG Hemoglobin ABG Oxyhemoglobin ABG Glucose Oxyhemoglobin Sodium Potassium Chloride Carbon Dioxide BUN Creatinine Glucose POC Glucose 159 H 198 H 115 H Lactic Acid Calcium Phosphorus Magnesium AST ALT Lactate Dehydrogenase Total Bilirubin Direct Bilirubin CK-MB (CK-2) C-Reactive Protein NT-Pro-B Natriuret Pep Total Protein Albumin Arterial Blood Glucose Urine WBC (Auto) Urine Creatinine 12/06/19 12/06/19 12/06/19 05:24 05:24 05:25 WBC 14.9 H RBC Hgb 10.8 L Hct 34.0 L MCHC RDW 15.6 H MCV MCH Lymph % (Auto) 10.7 L [place] % (Auto) 8.3 H [place] # 1.2 H Eos # Lymph # (Auto) [place] # (Auto) Eos # (Auto) Seg Neutrophils % 78.7 H Seg Neuts % (Manual) Baso # (Auto) Lymphocytes % (Manual) Monocytes % (Manual) Eosinophils % (Manual) Basophils % (Manual) Seg Neutrophils # 11.7 H Seg Neutrophils # Man Lymphocytes # (Manual) Monocytes # (Manual) Eosinophils # (Manual) Nucleated RBC % Basophils # (Manual) PT INR APTT Heparin Anti-Xa Level ABG pH POC ABG pO2 ABG pO2 ABG HCO3 ABG O2 Saturation ABG Base Excess POC ABG pCO2 ABG Hemoglobin ABG Oxyhemoglobin ABG Glucose Oxyhemoglobin Sodium 148 H Potassium 5.1 H Chloride 107.6 H Carbon Dioxide BUN 27 H Creatinine 0.7 L Glucose 155 H POC Glucose 157 H Lactic Acid Calcium Phosphorus Magnesium AST ALT Lactate Dehydrogenase Total Bilirubin Direct Bilirubin CK-MB (CK-2) C-Reactive Protein NT-Pro-B Natriuret Pep Total Protein Albumin Arterial Blood Glucose Urine WBC (Auto) Urine Creatinine 12/07/19 12/07/19 12/07/19 00:13 05:34 11:33 WBC RBC Hgb Hct MCHC RDW MCV MCH Lymph % (Auto) [place] % (Auto) [place] # Eos # Lymph # (Auto) [place] # (Auto) Eos # (Auto) Seg Neutrophils % Seg Neuts % (Manual) Baso # (Auto) Lymphocytes % (Manual) Monocytes % (Manual) Eosinophils % (Manual) Basophils % (Manual) Seg Neutrophils # Seg Neutrophils # Man Lymphocytes # (Manual) Monocytes # (Manual) Eosinophils # (Manual) Nucleated RBC % Basophils # (Manual) PT INR APTT Heparin Anti-Xa Level ABG pH POC ABG pO2 ABG pO2 ABG HCO3 ABG O2 Saturation ABG Base Excess POC ABG pCO2 ABG Hemoglobin ABG Oxyhemoglobin ABG Glucose Oxyhemoglobin Sodium Potassium Chloride Carbon Dioxide BUN Creatinine Glucose POC Glucose 142 H 111 H 169 H Lactic Acid Calcium Phosphorus Magnesium AST ALT Lactate Dehydrogenase Total Bilirubin Direct Bilirubin CK-MB (CK-2) C-Reactive Protein NT-Pro-B Natriuret Pep Total Protein Albumin Arterial Blood Glucose Urine WBC (Auto) Urine Creatinine 12/07/19 12/07/19 12/07/19 12:41 13:25 18:19 WBC 12.4 H RBC 3.53 L Hgb 10.2 L Hct 32.1 L MCHC RDW 15.3 H MCV MCH Lymph % (Auto) 10.6 L [place] % (Auto) 7.8 H [place] # 1.0 H Eos # Lymph # (Auto) [place] # (Auto) Eos # (Auto) Seg Neutrophils % 77.6 H Seg Neuts % (Manual) Baso # (Auto) Lymphocytes % (Manual) Monocytes % (Manual) Eosinophils % (Manual) Basophils % (Manual) Seg Neutrophils # 9.6 H Seg Neutrophils # Man Lymphocytes # (Manual) Monocytes # (Manual) Eosinophils # (Manual) Nucleated RBC % Basophils # (Manual) PT INR APTT Heparin Anti-Xa Level ABG pH POC ABG pO2 ABG pO2 ABG HCO3 ABG O2 Saturation ABG Base Excess POC ABG pCO2 ABG Hemoglobin ABG Oxyhemoglobin ABG Glucose Oxyhemoglobin Sodium 149 H Potassium Chloride 108.4 H Carbon Dioxide BUN 26 H Creatinine 0.6 L Glucose 149 H POC Glucose 164 H Lactic Acid Calcium Phosphorus Magnesium 2.60 H AST 121 H ALT 145 H Lactate Dehydrogenase Total Bilirubin Direct Bilirubin CK-MB (CK-2) C-Reactive Protein NT-Pro-B Natriuret Pep Total Protein Albumin 2.6 L Arterial Blood Glucose Urine WBC (Auto) Urine Creatinine 12/07/19 12/08/19 12/08/19 22:25 00:02 03:55 WBC 13.3 H RBC 3.40 L Hgb 9.7 L Hct 30.8 L MCHC 31 L RDW 15.5 H MCV MCH Lymph % (Auto) [place] % (Auto) 8.1 H [place] # 1.1 H Eos # Lymph # (Auto) [place] # (Auto) Eos # (Auto) Seg Neutrophils % 73.0 H Seg Neuts % (Manual) Baso # (Auto) Lymphocytes % (Manual) Monocytes % (Manual) Eosinophils % (Manual) Basophils % (Manual) Seg Neutrophils # 9.7 H Seg Neutrophils # Man Lymphocytes # (Manual) Monocytes # (Manual) Eosinophils # (Manual) Nucleated RBC % Basophils # (Manual) PT INR APTT Heparin Anti-Xa Level 0.12 L ABG pH POC ABG pO2 ABG pO2 ABG HCO3 ABG O2 Saturation ABG Base Excess POC ABG pCO2 ABG Hemoglobin ABG Oxyhemoglobin ABG Glucose Oxyhemoglobin Sodium Potassium Chloride Carbon Dioxide BUN Creatinine Glucose POC Glucose 151 H Lactic Acid Calcium Phosphorus Magnesium AST ALT Lactate Dehydrogenase Total Bilirubin Direct Bilirubin CK-MB (CK-2) C-Reactive Protein NT-Pro-B Natriuret Pep Total Protein Albumin Arterial Blood Glucose Urine WBC (Auto) Urine Creatinine 12/08/19 12/08/19 12/08/19 03:55 05:21 06:01 WBC RBC Hgb Hct MCHC RDW MCV MCH Lymph % (Auto) [place] % (Auto) [place] # Eos # Lymph # (Auto) [place] # (Auto) Eos # (Auto) Seg Neutrophils % Seg Neuts % (Manual) Baso # (Auto) Lymphocytes % (Manual) Monocytes % (Manual) Eosinophils % (Manual) Basophils % (Manual) Seg Neutrophils # Seg Neutrophils # Man Lymphocytes # (Manual) Monocytes # (Manual) Eosinophils # (Manual) Nucleated RBC % Basophils # (Manual) PT INR APTT Heparin Anti-Xa Level 0.20 L ABG pH POC ABG pO2 ABG pO2 ABG HCO3 ABG O2 Saturation ABG Base Excess POC ABG pCO2 ABG Hemoglobin ABG Oxyhemoglobin ABG Glucose Oxyhemoglobin Sodium 149 H Potassium Chloride 108.0 H Carbon Dioxide BUN 28 H Creatinine 0.6 L Glucose 144 H POC Glucose 143 H Lactic Acid Calcium Phosphorus Magnesium AST 98 H ALT 145 H Lactate Dehydrogenase Total Bilirubin Direct Bilirubin CK-MB (CK-2) C-Reactive Protein NT-Pro-B Natriuret Pep Total Protein 6.0 L Albumin 2.4 L Arterial Blood Glucose Urine WBC (Auto) Urine Creatinine 12/08/19 12/08/19 12/08/19 12:08 18:11 23:53 WBC RBC Hgb Hct MCHC RDW MCV MCH Lymph % (Auto) [place] % (Auto) [place] # Eos # Lymph # (Auto) [place] # (Auto) Eos # (Auto) Seg Neutrophils % Seg Neuts % (Manual) Baso # (Auto) Lymphocytes % (Manual) Monocytes % (Manual) Eosinophils % (Manual) Basophils % (Manual) Seg Neutrophils # Seg Neutrophils # Man Lymphocytes # (Manual) Monocytes # (Manual) Eosinophils # (Manual) Nucleated RBC % Basophils # (Manual) PT INR APTT Heparin Anti-Xa Level ABG pH POC ABG pO2 ABG pO2 ABG HCO3 ABG O2 Saturation ABG Base Excess POC ABG pCO2 ABG Hemoglobin ABG Oxyhemoglobin ABG Glucose Oxyhemoglobin Sodium Potassium Chloride Carbon Dioxide BUN Creatinine Glucose POC Glucose 172 H 122 H 162 H Lactic Acid Calcium Phosphorus Magnesium AST ALT Lactate Dehydrogenase Total Bilirubin Direct Bilirubin CK-MB (CK-2) C-Reactive Protein NT-Pro-B Natriuret Pep Total Protein Albumin Arterial Blood Glucose Urine WBC (Auto) Urine Creatinine 12/09/19 12/09/19 12/09/19 04:03 04:03 05:53 WBC RBC Hgb 9.1 L Hct 28.9 L MCHC RDW MCV MCH Lymph % (Auto) [place] % (Auto) [place] # Eos # Lymph # (Auto) [place] # (Auto) Eos # (Auto) Seg Neutrophils % Seg Neuts % (Manual) Baso # (Auto) Lymphocytes % (Manual) Monocytes % (Manual) Eosinophils % (Manual) Basophils % (Manual) Seg Neutrophils # Seg Neutrophils # Man Lymphocytes # (Manual) Monocytes # (Manual) Eosinophils # (Manual) Nucleated RBC % Basophils # (Manual) PT INR APTT Heparin Anti-Xa Level 0.15 L ABG pH POC ABG pO2 ABG pO2 ABG HCO3 ABG O2 Saturation ABG Base Excess POC ABG pCO2 ABG Hemoglobin ABG Oxyhemoglobin ABG Glucose Oxyhemoglobin Sodium Potassium Chloride Carbon Dioxide BUN Creatinine Glucose POC Glucose 124 H Lactic Acid Calcium Phosphorus Magnesium AST ALT Lactate Dehydrogenase Total Bilirubin Direct Bilirubin CK-MB (CK-2) C-Reactive Protein NT-Pro-B Natriuret Pep Total Protein Albumin Arterial Blood Glucose Urine WBC (Auto) Urine Creatinine 12/09/19 12/09/19 12/10/19 09:43 12:41 00:13 WBC RBC Hgb Hct MCHC RDW MCV MCH Lymph % (Auto) [place] % (Auto) [place] # Eos # Lymph # (Auto) [place] # (Auto) Eos # (Auto) Seg Neutrophils % Seg Neuts % (Manual) Baso # (Auto) Lymphocytes % (Manual) Monocytes % (Manual) Eosinophils % (Manual) Basophils % (Manual) Seg Neutrophils # Seg Neutrophils # Man Lymphocytes # (Manual) Monocytes # (Manual) Eosinophils # (Manual) Nucleated RBC % Basophils # (Manual) PT INR APTT Heparin Anti-Xa Level ABG pH POC ABG pO2 ABG pO2 ABG HCO3 ABG O2 Saturation ABG Base Excess POC ABG pCO2 ABG Hemoglobin ABG Oxyhemoglobin ABG Glucose Oxyhemoglobin Sodium Potassium Chloride Carbon Dioxide BUN 25 H Creatinine 0.6 L Glucose 131 H POC Glucose 109 H 120 H Lactic Acid Calcium Phosphorus Magnesium AST ALT Lactate Dehydrogenase Total Bilirubin Direct Bilirubin CK-MB (CK-2) C-Reactive Protein NT-Pro-B Natriuret Pep Total Protein Albumin Arterial Blood Glucose Urine WBC (Auto) Urine Creatinine 12/10/19 12/10/19 12/10/19 04:14 04:14 12:00 WBC 13.3 H RBC 3.34 L Hgb 9.6 L Hct 30.4 L MCHC RDW 15.4 H MCV MCH Lymph % (Auto) [place] % (Auto) [place] # Eos # Lymph # (Auto) [place] # (Auto) Eos # (Auto) Seg Neutrophils % Seg Neuts % (Manual) 75.0 H Baso # (Auto) Lymphocytes % (Manual) 13.0 L Monocytes % (Manual) 8.0 H Eosinophils % (Manual) Basophils % (Manual) 2.0 H Seg Neutrophils # Seg Neutrophils # Man 10.0 H Lymphocytes # (Manual) Monocytes # (Manual) 1.1 H Eosinophils # (Manual) Nucleated RBC % Basophils # (Manual) 0.3 H PT INR APTT Heparin Anti-Xa Level ABG pH POC ABG pO2 ABG pO2 ABG HCO3 ABG O2 Saturation ABG Base Excess POC ABG pCO2 ABG Hemoglobin ABG Oxyhemoglobin ABG Glucose Oxyhemoglobin Sodium 147 H Potassium Chloride 108.3 H Carbon Dioxide BUN 21 H Creatinine 0.6 L Glucose 104 H POC Glucose 133 H Lactic Acid Calcium Phosphorus Magnesium AST ALT Lactate Dehydrogenase Total Bilirubin Direct Bilirubin CK-MB (CK-2) C-Reactive Protein NT-Pro-B Natriuret Pep Total Protein Albumin Arterial Blood Glucose Urine WBC (Auto) Urine Creatinine 12/10/19 12/10/19 12/11/19 18:44 21:20 00:08 WBC 14.9 H RBC 3.36 L Hgb 9.6 L Hct 30.5 L MCHC RDW 15.4 H MCV MCH Lymph % (Auto) [place] % (Auto) [place] # Eos # Lymph # (Auto) [place] # (Auto) Eos # (Auto) Seg Neutrophils % Seg Neuts % (Manual) Baso # (Auto) Lymphocytes % (Manual) Monocytes % (Manual) Eosinophils % (Manual) Basophils % (Manual) Seg Neutrophils # Seg Neutrophils # Man Lymphocytes # (Manual) Monocytes # (Manual) Eosinophils # (Manual) Nucleated RBC % Basophils # (Manual) PT INR APTT Heparin Anti-Xa Level ABG pH POC ABG pO2 ABG pO2 ABG HCO3 ABG O2 Saturation ABG Base Excess POC ABG pCO2 ABG Hemoglobin ABG Oxyhemoglobin ABG Glucose Oxyhemoglobin Sodium Potassium Chloride Carbon Dioxide BUN Creatinine Glucose POC Glucose 119 H 134 H Lactic Acid Calcium Phosphorus Magnesium AST ALT Lactate Dehydrogenase Total Bilirubin Direct Bilirubin CK-MB (CK-2) C-Reactive Protein NT-Pro-B Natriuret Pep Total Protein Albumin Arterial Blood Glucose Urine WBC (Auto) Urine Creatinine 12/11/19 12/11/19 12/11/19 03:54 07:28 08:36 WBC 11.9 H RBC 3.25 L Hgb 9.6 L Hct 29.2 L MCHC RDW 15.7 H MCV MCH Lymph % (Auto) [place] % (Auto) [place] # Eos # Lymph # (Auto) [place] # (Auto) Eos # (Auto) Seg Neutrophils % Seg Neuts % (Manual) Baso # (Auto) Lymphocytes % (Manual) Monocytes % (Manual) Eosinophils % (Manual) Basophils % (Manual) Seg Neutrophils # Seg Neutrophils # Man Lymphocytes # (Manual) Monocytes # (Manual) Eosinophils # (Manual) Nucleated RBC % Basophils # (Manual) PT INR APTT Heparin Anti-Xa Level 0.10 L 0.16 L ABG pH POC ABG pO2 ABG pO2 ABG HCO3 ABG O2 Saturation ABG Base Excess POC ABG pCO2 ABG Hemoglobin ABG Oxyhemoglobin ABG Glucose Oxyhemoglobin Sodium Potassium Chloride Carbon Dioxide BUN Creatinine Glucose POC Glucose Lactic Acid Calcium Phosphorus Magnesium AST ALT Lactate Dehydrogenase Total Bilirubin Direct Bilirubin CK-MB (CK-2) C-Reactive Protein NT-Pro-B Natriuret Pep Total Protein Albumin Arterial Blood Glucose Urine WBC (Auto) Urine Creatinine 12/11/19 12/11/19 12/11/19 08:36 11:45 17:15 WBC RBC Hgb Hct MCHC RDW MCV MCH Lymph % (Auto) [place] % (Auto) [place] # Eos # Lymph # (Auto) [place] # (Auto) Eos # (Auto) Seg Neutrophils % Seg Neuts % (Manual) Baso # (Auto) Lymphocytes % (Manual) Monocytes % (Manual) Eosinophils % (Manual) Basophils % (Manual) Seg Neutrophils # Seg Neutrophils # Man Lymphocytes # (Manual) Monocytes # (Manual) Eosinophils # (Manual) Nucleated RBC % Basophils # (Manual) PT INR APTT Heparin Anti-Xa Level ABG pH POC ABG pO2 ABG pO2 ABG HCO3 ABG O2 Saturation ABG Base Excess POC ABG pCO2 ABG Hemoglobin ABG Oxyhemoglobin ABG Glucose Oxyhemoglobin Sodium Potassium Chloride Carbon Dioxide BUN Creatinine 0.5 L Glucose 128 H POC Glucose 136 H 109 H Lactic Acid Calcium Phosphorus Magnesium AST ALT Lactate Dehydrogenase Total Bilirubin Direct Bilirubin CK-MB (CK-2) C-Reactive Protein NT-Pro-B Natriuret Pep Total Protein Albumin Arterial Blood Glucose Urine WBC (Auto) Urine Creatinine 12/12/19 12/12/19 12/12/19 00:03 05:53 05:53 WBC RBC Hgb 8.8 L Hct 27.6 L MCHC RDW MCV MCH Lymph % (Auto) [place] % (Auto) [place] # Eos # Lymph # (Auto) [place] # (Auto) Eos # (Auto) Seg Neutrophils % Seg Neuts % (Manual) Baso # (Auto) Lymphocytes % (Manual) Monocytes % (Manual) Eosinophils % (Manual) Basophils % (Manual) Seg Neutrophils # Seg Neutrophils # Man Lymphocytes # (Manual) Monocytes # (Manual) Eosinophils # (Manual) Nucleated RBC % Basophils # (Manual) PT INR APTT Heparin Anti-Xa Level 0.22 L ABG pH POC ABG pO2 ABG pO2 ABG HCO3 ABG O2 Saturation ABG Base Excess POC ABG pCO2 ABG Hemoglobin ABG Oxyhemoglobin ABG Glucose Oxyhemoglobin Sodium Potassium Chloride Carbon Dioxide BUN Creatinine Glucose POC Glucose 116 H Lactic Acid Calcium Phosphorus Magnesium AST ALT Lactate Dehydrogenase Total Bilirubin Direct Bilirubin CK-MB (CK-2) C-Reactive Protein NT-Pro-B Natriuret Pep Total Protein Albumin Arterial Blood Glucose Urine WBC (Auto) Urine Creatinine 12/12/19 12/12/19 12/12/19 09:38 12:18 17:44 WBC RBC Hgb Hct MCHC RDW MCV MCH Lymph % (Auto) [place] % (Auto) [place] # Eos # Lymph # (Auto) [place] # (Auto) Eos # (Auto) Seg Neutrophils % Seg Neuts % (Manual) Baso # (Auto) Lymphocytes % (Manual) Monocytes % (Manual) Eosinophils % (Manual) Basophils % (Manual) Seg Neutrophils # Seg Neutrophils # Man Lymphocytes # (Manual) Monocytes # (Manual) Eosinophils # (Manual) Nucleated RBC % Basophils # (Manual) PT INR APTT Heparin Anti-Xa Level ABG pH POC ABG pO2 ABG pO2 ABG HCO3 ABG O2 Saturation ABG Base Excess POC ABG pCO2 ABG Hemoglobin ABG Oxyhemoglobin ABG Glucose Oxyhemoglobin Sodium Potassium Chloride Carbon Dioxide BUN Creatinine Glucose POC Glucose 115 H 146 H 146 H Lactic Acid Calcium Phosphorus Magnesium AST ALT Lactate Dehydrogenase Total Bilirubin Direct Bilirubin CK-MB (CK-2) C-Reactive Protein NT-Pro-B Natriuret Pep Total Protein Albumin Arterial Blood Glucose Urine WBC (Auto) Urine Creatinine 12/12/19 12/13/19 12/13/19 23:33 05:32 05:32 WBC 13.1 H RBC 3.27 L Hgb 9.5 L Hct 29.3 L MCHC RDW 15.6 H MCV MCH Lymph % (Auto) [place] % (Auto) [place] # Eos # Lymph # (Auto) [place] # (Auto) Eos # (Auto) Seg Neutrophils % Seg Neuts % (Manual) 74.0 H Baso # (Auto) Lymphocytes % (Manual) 8.0 L Monocytes % (Manual) 9.0 H Eosinophils % (Manual) 5.0 H Basophils % (Manual) Seg Neutrophils # Seg Neutrophils # Man 9.7 H Lymphocytes # (Manual) 1.0 L Monocytes # (Manual) 1.2 H Eosinophils # (Manual) 0.7 H Nucleated RBC % Basophils # (Manual) PT INR APTT Heparin Anti-Xa Level 0.20 L ABG pH POC ABG pO2 ABG pO2 ABG HCO3 ABG O2 Saturation ABG Base Excess POC ABG pCO2 ABG Hemoglobin ABG Oxyhemoglobin ABG Glucose Oxyhemoglobin Sodium Potassium Chloride Carbon Dioxide BUN Creatinine Glucose POC Glucose 126 H Lactic Acid Calcium Phosphorus Magnesium AST ALT Lactate Dehydrogenase Total Bilirubin Direct Bilirubin CK-MB (CK-2) C-Reactive Protein NT-Pro-B Natriuret Pep Total Protein Albumin Arterial Blood Glucose Urine WBC (Auto) Urine Creatinine 12/13/19 12/13/19 12/13/19 05:32 05:46 11:57 WBC RBC Hgb Hct MCHC RDW MCV MCH Lymph % (Auto) [place] % (Auto) [place] # Eos # Lymph # (Auto) [place] # (Auto) Eos # (Auto) Seg Neutrophils % Seg Neuts % (Manual) Baso # (Auto) Lymphocytes % (Manual) Monocytes % (Manual) Eosinophils % (Manual) Basophils % (Manual) Seg Neutrophils # Seg Neutrophils # Man Lymphocytes # (Manual) Monocytes # (Manual) Eosinophils # (Manual) Nucleated RBC % Basophils # (Manual) PT INR APTT Heparin Anti-Xa Level ABG pH POC ABG pO2 ABG pO2 ABG HCO3 ABG O2 Saturation ABG Base Excess POC ABG pCO2 ABG Hemoglobin ABG Oxyhemoglobin ABG Glucose Oxyhemoglobin Sodium Potassium Chloride Carbon Dioxide 31 H BUN Creatinine 0.6 L Glucose 114 H POC Glucose 118 H 133 H Lactic Acid Calcium Phosphorus Magnesium AST ALT Lactate Dehydrogenase Total Bilirubin Direct Bilirubin CK-MB (CK-2) C-Reactive Protein NT-Pro-B Natriuret Pep Total Protein Albumin Arterial Blood Glucose Urine WBC (Auto) Urine Creatinine 12/13/19 12/13/19 12/14/19 17:44 23:46 05:32 WBC RBC Hgb Hct MCHC RDW MCV MCH Lymph % (Auto) [place] % (Auto) [place] # Eos # Lymph # (Auto) [place] # (Auto) Eos # (Auto) Seg Neutrophils % Seg Neuts % (Manual) Baso # (Auto) Lymphocytes % (Manual) Monocytes % (Manual) Eosinophils % (Manual) Basophils % (Manual) Seg Neutrophils # Seg Neutrophils # Man Lymphocytes # (Manual) Monocytes # (Manual) Eosinophils # (Manual) Nucleated RBC % Basophils # (Manual) PT INR APTT Heparin Anti-Xa Level ABG pH POC ABG pO2 ABG pO2 ABG HCO3 ABG O2 Saturation ABG Base Excess POC ABG pCO2 ABG Hemoglobin ABG Oxyhemoglobin ABG Glucose Oxyhemoglobin Sodium Potassium Chloride Carbon Dioxide BUN Creatinine Glucose POC Glucose 161 H 126 H 139 H Lactic Acid Calcium Phosphorus Magnesium AST ALT Lactate Dehydrogenase Total Bilirubin Direct Bilirubin CK-MB (CK-2) C-Reactive Protein NT-Pro-B Natriuret Pep Total Protein Albumin Arterial Blood Glucose Urine WBC (Auto) Urine Creatinine 12/14/19 12/14/19 12/14/19 06:03 06:03 09:37 WBC RBC Hgb 9.6 L Hct 30.4 L MCHC RDW MCV MCH Lymph % (Auto) [place] % (Auto) [place] # Eos # Lymph # (Auto) [place] # (Auto) Eos # (Auto) Seg Neutrophils % Seg Neuts % (Manual) Baso # (Auto) Lymphocytes % (Manual) Monocytes % (Manual) Eosinophils % (Manual) Basophils % (Manual) Seg Neutrophils # Seg Neutrophils # Man Lymphocytes # (Manual) Monocytes # (Manual) Eosinophils # (Manual) Nucleated RBC % Basophils # (Manual) PT INR APTT Heparin Anti-Xa Level 0.24 L ABG pH POC ABG pO2 ABG pO2 ABG HCO3 ABG O2 Saturation ABG Base Excess POC ABG pCO2 ABG Hemoglobin ABG Oxyhemoglobin ABG Glucose Oxyhemoglobin Sodium Potassium Chloride Carbon Dioxide BUN Creatinine 0.6 L Glucose 162 H POC Glucose Lactic Acid Calcium Phosphorus Magnesium AST 71 H ALT 118 H Lactate Dehydrogenase Total Bilirubin Direct Bilirubin CK-MB (CK-2) C-Reactive Protein NT-Pro-B Natriuret Pep Total Protein 6.2 L Albumin 2.3 L Arterial Blood Glucose Urine WBC (Auto) Urine Creatinine 12/14/19 12/14/1920 12:06 18:18 00:19 WBC RBC Hgb Hct MCHC RDW MCV MCH Lymph % (Auto) [place] % (Auto) [place] # Eos # Lymph # (Auto) [place] # (Auto) Eos # (Auto) Seg Neutrophils % Seg Neuts % (Manual) Baso # (Auto) Lymphocytes % (Manual) Monocytes % (Manual) Eosinophils % (Manual) Basophils % (Manual) Seg Neutrophils # Seg Neutrophils # Man Lymphocytes # (Manual) Monocytes # (Manual) Eosinophils # (Manual) Nucleated RBC % Basophils # (Manual) PT INR APTT Heparin Anti-Xa Level ABG pH POC ABG pO2 ABG pO2 ABG HCO3 ABG O2 Saturation ABG Base Excess POC ABG pCO2 ABG Hemoglobin ABG Oxyhemoglobin ABG Glucose Oxyhemoglobin Sodium Potassium Chloride Carbon Dioxide BUN Creatinine Glucose POC Glucose 147 H 166 H 123 H Lactic Acid Calcium Phosphorus Magnesium AST ALT Lactate Dehydrogenase Total Bilirubin Direct Bilirubin CK-MB (CK-2) C-Reactive Protein NT-Pro-B Natriuret Pep Total Protein Albumin Arterial Blood Glucose Urine WBC (Auto) Urine Creatinine 12/15/19 12/15/19 12/15/19 05:28 05:29 05:29 WBC 14.9 H RBC 3.19 L Hgb 9.1 L Hct 28.7 L MCHC RDW 16.0 H MCV MCH Lymph % (Auto) [place] % (Auto) [place] # Eos # Lymph # (Auto) [place] # (Auto) Eos # (Auto) Seg Neutrophils % Seg Neuts % (Manual) Baso # (Auto) Lymphocytes % (Manual) Monocytes % (Manual) Eosinophils % (Manual) Basophils % (Manual) Seg Neutrophils # Seg Neutrophils # Man Lymphocytes # (Manual) Monocytes # (Manual) Eosinophils # (Manual) Nucleated RBC % Basophils # (Manual) PT INR APTT Heparin Anti-Xa Level 0.19 L ABG pH POC ABG pO2 ABG pO2 ABG HCO3 ABG O2 Saturation ABG Base Excess POC ABG pCO2 ABG Hemoglobin ABG Oxyhemoglobin ABG Glucose Oxyhemoglobin Sodium Potassium Chloride Carbon Dioxide BUN Creatinine 0.6 L Glucose 110 H POC Glucose Lactic Acid Calcium Phosphorus Magnesium AST ALT Lactate Dehydrogenase Total Bilirubin Direct Bilirubin CK-MB (CK-2) C-Reactive Protein NT-Pro-B Natriuret Pep Total Protein Albumin Arterial Blood Glucose Urine WBC (Auto) Urine Creatinine 12/15/19 12/15/19 12/15/19 05:53 11:50 17:26 WBC RBC Hgb Hct MCHC RDW MCV MCH Lymph % (Auto) [place] % (Auto) [place] # Eos # Lymph # (Auto) [place] # (Auto) Eos # (Auto) Seg Neutrophils % Seg Neuts % (Manual) Baso # (Auto) Lymphocytes % (Manual) Monocytes % (Manual) Eosinophils % (Manual) Basophils % (Manual) Seg Neutrophils # Seg Neutrophils # Man Lymphocytes # (Manual) Monocytes # (Manual) Eosinophils # (Manual) Nucleated RBC % Basophils # (Manual) PT INR APTT Heparin Anti-Xa Level ABG pH POC ABG pO2 ABG pO2 ABG HCO3 ABG O2 Saturation ABG Base Excess POC ABG pCO2 ABG Hemoglobin ABG Oxyhemoglobin ABG Glucose Oxyhemoglobin Sodium Potassium Chloride Carbon Dioxide BUN Creatinine Glucose POC Glucose 119 H 132 H 128 H Lactic Acid Calcium Phosphorus Magnesium AST ALT Lactate Dehydrogenase Total Bilirubin Direct Bilirubin CK-MB (CK-2) C-Reactive Protein NT-Pro-B Natriuret Pep Total Protein Albumin Arterial Blood Glucose Urine WBC (Auto) Urine Creatinine 12/15/19 12/16/19 12/16/19 23:11 05:30 05:46 WBC RBC Hgb 8.8 L Hct 27.9 L MCHC RDW MCV MCH Lymph % (Auto) [place] % (Auto) [place] # Eos # Lymph # (Auto) [place] # (Auto) Eos # (Auto) Seg Neutrophils % Seg Neuts % (Manual) Baso # (Auto) Lymphocytes % (Manual) Monocytes % (Manual) Eosinophils % (Manual) Basophils % (Manual) Seg Neutrophils # Seg Neutrophils # Man Lymphocytes # (Manual) Monocytes # (Manual) Eosinophils # (Manual) Nucleated RBC % Basophils # (Manual) PT INR APTT Heparin Anti-Xa Level ABG pH POC ABG pO2 ABG pO2 ABG HCO3 ABG O2 Saturation ABG Base Excess POC ABG pCO2 ABG Hemoglobin ABG Oxyhemoglobin ABG Glucose Oxyhemoglobin Sodium Potassium Chloride Carbon Dioxide BUN Creatinine Glucose POC Glucose 150 H 134 H Lactic Acid Calcium Phosphorus Magnesium AST ALT Lactate Dehydrogenase Total Bilirubin Direct Bilirubin CK-MB (CK-2) C-Reactive Protein NT-Pro-B Natriuret Pep Total Protein Albumin Arterial Blood Glucose Urine WBC (Auto) Urine Creatinine 12/16/19 12/16/19 12/16/19 05:46 05:46 11:44 WBC RBC Hgb Hct MCHC RDW MCV MCH Lymph % (Auto) [place] % (Auto) [place] # Eos # Lymph # (Auto) [place] # (Auto) Eos # (Auto) Seg Neutrophils % Seg Neuts % (Manual) Baso # (Auto) Lymphocytes % (Manual) Monocytes % (Manual) Eosinophils % (Manual) Basophils % (Manual) Seg Neutrophils # Seg Neutrophils # Man Lymphocytes # (Manual) Monocytes # (Manual) Eosinophils # (Manual) Nucleated RBC % Basophils # (Manual) PT INR APTT Heparin Anti-Xa Level 0.20 L ABG pH POC ABG pO2 ABG pO2 ABG HCO3 ABG O2 Saturation ABG Base Excess POC ABG pCO2 ABG Hemoglobin ABG Oxyhemoglobin ABG Glucose Oxyhemoglobin Sodium Potassium Chloride Carbon Dioxide 31 H BUN Creatinine 0.5 L Glucose 147 H POC Glucose 164 H Lactic Acid Calcium Phosphorus Magnesium AST ALT Lactate Dehydrogenase Total Bilirubin Direct Bilirubin CK-MB (CK-2) C-Reactive Protein NT-Pro-B Natriuret Pep Total Protein Albumin Arterial Blood Glucose Urine WBC (Auto) Urine Creatinine 12/16/19 12/16/19 12/17/19 17:17 23:49 05:30 WBC 13.9 H RBC 3.27 L Hgb 9.4 L Hct 29.2 L MCHC RDW 16.0 H MCV MCH Lymph % (Auto) [place] % (Auto) 8.8 H [place] # Eos # Lymph # (Auto) [place] # (Auto) 1.2 H Eos # (Auto) 0.5 H Seg Neutrophils % 70.5 H Seg Neuts % (Manual) Baso # (Auto) 0.2 H Lymphocytes % (Manual) Monocytes % (Manual) Eosinophils % (Manual) Basophils % (Manual) Seg Neutrophils # 9.8 H Seg Neutrophils # Man Lymphocytes # (Manual) Monocytes # (Manual) Eosinophils # (Manual) Nucleated RBC % Basophils # (Manual) PT INR APTT Heparin Anti-Xa Level ABG pH POC ABG pO2 ABG pO2 ABG HCO3 ABG O2 Saturation ABG Base Excess POC ABG pCO2 ABG Hemoglobin ABG Oxyhemoglobin ABG Glucose Oxyhemoglobin Sodium Potassium Chloride Carbon Dioxide BUN Creatinine Glucose POC Glucose 162 H 144 H Lactic Acid Calcium Phosphorus Magnesium AST ALT Lactate Dehydrogenase Total Bilirubin Direct Bilirubin CK-MB (CK-2) C-Reactive Protein NT-Pro-B Natriuret Pep Total Protein Albumin Arterial Blood Glucose Urine WBC (Auto) Urine Creatinine 12/17/19 12/17/19 12/17/19 05:30 06:06 11:50 WBC RBC Hgb Hct MCHC RDW MCV MCH Lymph % (Auto) [place] % (Auto) [place] # Eos # Lymph # (Auto) [place] # (Auto) Eos # (Auto) Seg Neutrophils % Seg Neuts % (Manual) Baso # (Auto) Lymphocytes % (Manual) Monocytes % (Manual) Eosinophils % (Manual) Basophils % (Manual) Seg Neutrophils # Seg Neutrophils # Man Lymphocytes # (Manual) Monocytes # (Manual) Eosinophils # (Manual) Nucleated RBC % Basophils # (Manual) PT INR APTT Heparin Anti-Xa Level ABG pH POC ABG pO2 ABG pO2 ABG HCO3 ABG O2 Saturation ABG Base Excess POC ABG pCO2 ABG Hemoglobin ABG Oxyhemoglobin ABG Glucose Oxyhemoglobin Sodium Potassium Chloride 97.4 L Carbon Dioxide 32 H BUN Creatinine 0.5 L Glucose 135 H POC Glucose 151 H 140 H Lactic Acid Calcium Phosphorus Magnesium AST ALT Lactate Dehydrogenase Total Bilirubin Direct Bilirubin CK-MB (CK-2) C-Reactive Protein NT-Pro-B Natriuret Pep Total Protein Albumin Arterial Blood Glucose Urine WBC (Auto) Urine Creatinine 12/17/19 12/17/19 12/18/19 17:50 23:46 05:17 WBC RBC Hgb 8.8 L Hct 28.0 L MCHC RDW MCV MCH Lymph % (Auto) [place] % (Auto) [place] # Eos # Lymph # (Auto) [place] # (Auto) Eos # (Auto) Seg Neutrophils % Seg Neuts % (Manual) Baso # (Auto) Lymphocytes % (Manual) Monocytes % (Manual) Eosinophils % (Manual) Basophils % (Manual) Seg Neutrophils # Seg Neutrophils # Man Lymphocytes # (Manual) Monocytes # (Manual) Eosinophils # (Manual) Nucleated RBC % Basophils # (Manual) PT INR APTT Heparin Anti-Xa Level ABG pH POC ABG pO2 ABG pO2 ABG HCO3 ABG O2 Saturation ABG Base Excess POC ABG pCO2 ABG Hemoglobin ABG Oxyhemoglobin ABG Glucose Oxyhemoglobin Sodium Potassium Chloride Carbon Dioxide BUN Creatinine Glucose POC Glucose 158 H 150 H Lactic Acid Calcium Phosphorus Magnesium AST ALT Lactate Dehydrogenase Total Bilirubin Direct Bilirubin CK-MB (CK-2) C-Reactive Protein NT-Pro-B Natriuret Pep Total Protein Albumin Arterial Blood Glucose Urine WBC (Auto) Urine Creatinine 12/18/19 12/18/19 12/18/19 05:17 05:49 11:12 WBC RBC Hgb Hct MCHC RDW MCV MCH Lymph % (Auto) [place] % (Auto) [place] # Eos # Lymph # (Auto) [place] # (Auto) Eos # (Auto) Seg Neutrophils % Seg Neuts % (Manual) Baso # (Auto) Lymphocytes % (Manual) Monocytes % (Manual) Eosinophils % (Manual) Basophils % (Manual) Seg Neutrophils # Seg Neutrophils # Man Lymphocytes # (Manual) Monocytes # (Manual) Eosinophils # (Manual) Nucleated RBC % Basophils # (Manual) PT INR APTT Heparin Anti-Xa Level 0.16 L ABG pH POC ABG pO2 ABG pO2 ABG HCO3 ABG O2 Saturation ABG Base Excess POC ABG pCO2 ABG Hemoglobin ABG Oxyhemoglobin ABG Glucose Oxyhemoglobin Sodium Potassium Chloride Carbon Dioxide BUN Creatinine Glucose POC Glucose 127 H 191 H Lactic Acid Calcium Phosphorus Magnesium AST ALT Lactate Dehydrogenase Total Bilirubin Direct Bilirubin CK-MB (CK-2) C-Reactive Protein NT-Pro-B Natriuret Pep Total Protein Albumin Arterial Blood Glucose Urine WBC (Auto) Urine Creatinine 12/18/19 12/18/19 12/19/19 17:03 20:16 00:08 WBC RBC Hgb Hct MCHC RDW MCV MCH Lymph % (Auto) [place] % (Auto) [place] # Eos # Lymph # (Auto) [place] # (Auto) Eos # (Auto) Seg Neutrophils % Seg Neuts % (Manual) Baso # (Auto) Lymphocytes % (Manual) Monocytes % (Manual) Eosinophils % (Manual) Basophils % (Manual) Seg Neutrophils # Seg Neutrophils # Man Lymphocytes # (Manual) Monocytes # (Manual) Eosinophils # (Manual) Nucleated RBC % Basophils # (Manual) PT INR APTT Heparin Anti-Xa Level ABG pH POC ABG pO2 ABG pO2 ABG HCO3 ABG O2 Saturation ABG Base Excess POC ABG pCO2 ABG Hemoglobin ABG Oxyhemoglobin ABG Glucose Oxyhemoglobin Sodium Potassium Chloride Carbon Dioxide BUN Creatinine Glucose POC Glucose 133 H 128 H 129 H Lactic Acid Calcium Phosphorus Magnesium AST ALT Lactate Dehydrogenase Total Bilirubin Direct Bilirubin CK-MB (CK-2) C-Reactive Protein NT-Pro-B Natriuret Pep Total Protein Albumin Arterial Blood Glucose Urine WBC (Auto) Urine Creatinine 12/19/19 12/19/19 12/19/19 04:45 04:45 05:35 WBC RBC Hgb Hct MCHC RDW MCV MCH Lymph % (Auto) [place] % (Auto) [place] # Eos # Lymph # (Auto) [place] # (Auto) Eos # (Auto) Seg Neutrophils % Seg Neuts % (Manual) Baso # (Auto) Lymphocytes % (Manual) Monocytes % (Manual) Eosinophils % (Manual) Basophils % (Manual) Seg Neutrophils # Seg Neutrophils # Man Lymphocytes # (Manual) Monocytes # (Manual) Eosinophils # (Manual) Nucleated RBC % Basophils # (Manual) PT INR APTT Heparin Anti-Xa Level 0.17 L ABG pH POC ABG pO2 ABG pO2 ABG HCO3 ABG O2 Saturation ABG Base Excess POC ABG pCO2 ABG Hemoglobin ABG Oxyhemoglobin ABG Glucose Oxyhemoglobin Sodium Potassium Chloride Carbon Dioxide BUN Creatinine Glucose POC Glucose 120 H Lactic Acid Calcium Phosphorus Magnesium AST ALT Lactate Dehydrogenase 228 H Total Bilirubin Direct Bilirubin CK-MB (CK-2) C-Reactive Protein NT-Pro-B Natriuret Pep Total Protein Albumin Arterial Blood Glucose Urine WBC (Auto) Urine Creatinine 12/19/19 12/19/19 12/19/19 09:20 11:32 11:32 WBC 14.6 H RBC 3.08 L Hgb 9.0 L Hct 26.8 L MCHC RDW 15.9 H MCV MCH Lymph % (Auto) [place] % (Auto) [place] # Eos # Lymph # (Auto) [place] # (Auto) Eos # (Auto) Seg Neutrophils % Seg Neuts % (Manual) 82.0 H Baso # (Auto) Lymphocytes % (Manual) 10.0 L Monocytes % (Manual) Eosinophils % (Manual) Basophils % (Manual) Seg Neutrophils # Seg Neutrophils # Man 12.0 H Lymphocytes # (Manual) Monocytes # (Manual) 0.9 H Eosinophils # (Manual) Nucleated RBC % 1.0 H Basophils # (Manual) PT INR APTT Heparin Anti-Xa Level ABG pH 7.451 H POC ABG pO2 ABG pO2 62.6 L ABG HCO3 33.2 H ABG O2 Saturation 93.8 L ABG Base Excess 8.3 H POC ABG pCO2 ABG Hemoglobin 8.3 L ABG Oxyhemoglobin ABG Glucose Oxyhemoglobin 91.9 L Sodium Potassium Chloride 95.0 L Carbon Dioxide 33 H BUN 22 H Creatinine 0.6 L Glucose 150 H POC Glucose Lactic Acid Calcium Phosphorus Magnesium AST ALT Lactate Dehydrogenase Total Bilirubin Direct Bilirubin CK-MB (CK-2) C-Reactive Protein NT-Pro-B Natriuret Pep Total Protein 6.2 L Albumin 2.4 L Arterial Blood Glucose Urine WBC (Auto) Urine Creatinine 12/19/19 12/19/19 12/20/19 11:56 18:17 00:09 WBC RBC Hgb Hct MCHC RDW MCV MCH Lymph % (Auto) [place] % (Auto) [place] # Eos # Lymph # (Auto) [place] # (Auto) Eos # (Auto) Seg Neutrophils % Seg Neuts % (Manual) Baso # (Auto) Lymphocytes % (Manual) Monocytes % (Manual) Eosinophils % (Manual) Basophils % (Manual) Seg Neutrophils # Seg Neutrophils # Man Lymphocytes # (Manual) Monocytes # (Manual) Eosinophils # (Manual) Nucleated RBC % Basophils # (Manual) PT INR APTT Heparin Anti-Xa Level ABG pH POC ABG pO2 ABG pO2 ABG HCO3 ABG O2 Saturation ABG Base Excess POC ABG pCO2 ABG Hemoglobin ABG Oxyhemoglobin ABG Glucose Oxyhemoglobin Sodium Potassium Chloride Carbon Dioxide BUN Creatinine Glucose POC Glucose 156 H 156 H 155 H Lactic Acid Calcium Phosphorus Magnesium AST ALT Lactate Dehydrogenase Total Bilirubin Direct Bilirubin CK-MB (CK-2) C-Reactive Protein NT-Pro-B Natriuret Pep Total Protein Albumin Arterial Blood Glucose Urine WBC (Auto) Urine Creatinine 12/20/19 12/20/19 12/20/19 05:26 06:02 18:17 WBC RBC Hgb Hct MCHC RDW MCV MCH Lymph % (Auto) [place] % (Auto) [place] # Eos # Lymph # (Auto) [place] # (Auto) Eos # (Auto) Seg Neutrophils % Seg Neuts % (Manual) Baso # (Auto) Lymphocytes % (Manual) Monocytes % (Manual) Eosinophils % (Manual) Basophils % (Manual) Seg Neutrophils # Seg Neutrophils # Man Lymphocytes # (Manual) Monocytes # (Manual) Eosinophils # (Manual) Nucleated RBC % Basophils # (Manual) PT INR APTT Heparin Anti-Xa Level 0.19 L ABG pH POC ABG pO2 ABG pO2 ABG HCO3 ABG O2 Saturation ABG Base Excess POC ABG pCO2 ABG Hemoglobin ABG Oxyhemoglobin ABG Glucose Oxyhemoglobin Sodium Potassium Chloride Carbon Dioxide BUN Creatinine Glucose POC Glucose 137 H 128 H Lactic Acid Calcium Phosphorus Magnesium AST ALT Lactate Dehydrogenase Total Bilirubin Direct Bilirubin CK-MB (CK-2) C-Reactive Protein NT-Pro-B Natriuret Pep Total Protein Albumin Arterial Blood Glucose Urine WBC (Auto) Urine Creatinine 12/20/19 12/21/19 12/21/19 23:34 05:31 05:31 WBC 12.7 H RBC 3.09 L Hgb 8.9 L Hct 27.4 L MCHC RDW 15.8 H MCV MCH Lymph % (Auto) 12.1 L [place] % (Auto) 7.8 H [place] # Eos # Lymph # (Auto) [place] # (Auto) 1.0 H Eos # (Auto) Seg Neutrophils % 77.1 H Seg Neuts % (Manual) Baso # (Auto) Lymphocytes % (Manual) Monocytes % (Manual) Eosinophils % (Manual) Basophils % (Manual) Seg Neutrophils # 9.8 H Seg Neutrophils # Man Lymphocytes # (Manual) Monocytes # (Manual) Eosinophils # (Manual) Nucleated RBC % Basophils # (Manual) PT INR APTT Heparin Anti-Xa Level ABG pH POC ABG pO2 ABG pO2 ABG HCO3 ABG O2 Saturation ABG Base Excess POC ABG pCO2 ABG Hemoglobin ABG Oxyhemoglobin ABG Glucose Oxyhemoglobin Sodium Potassium Chloride 96.9 L Carbon Dioxide 37 H BUN 27 H Creatinine 0.7 L Glucose 140 H POC Glucose 145 H Lactic Acid Calcium Phosphorus Magnesium AST ALT Lactate Dehydrogenase Total Bilirubin Direct Bilirubin CK-MB (CK-2) C-Reactive Protein NT-Pro-B Natriuret Pep Total Protein Albumin Arterial Blood Glucose Urine WBC (Auto) Urine Creatinine 12/21/19 12/21/19 12/21/19 05:38 10:13 11:51 WBC RBC Hgb Hct MCHC RDW MCV MCH Lymph % (Auto) [place] % (Auto) [place] # Eos # Lymph # (Auto) [place] # (Auto) Eos # (Auto) Seg Neutrophils % Seg Neuts % (Manual) Baso # (Auto) Lymphocytes % (Manual) Monocytes % (Manual) Eosinophils % (Manual) Basophils % (Manual) Seg Neutrophils # Seg Neutrophils # Man Lymphocytes # (Manual) Monocytes # (Manual) Eosinophils # (Manual) Nucleated RBC % Basophils # (Manual) PT INR APTT 23.9 L Heparin Anti-Xa Level < 0.10 L ABG pH POC ABG pO2 ABG pO2 ABG HCO3 ABG O2 Saturation ABG Base Excess POC ABG pCO2 ABG Hemoglobin ABG Oxyhemoglobin ABG Glucose Oxyhemoglobin Sodium Potassium Chloride Carbon Dioxide BUN Creatinine Glucose POC Glucose 151 H 145 H Lactic Acid Calcium Phosphorus Magnesium AST ALT Lactate Dehydrogenase Total Bilirubin Direct Bilirubin CK-MB (CK-2) C-Reactive Protein NT-Pro-B Natriuret Pep Total Protein Albumin Arterial Blood Glucose Urine WBC (Auto) Urine Creatinine 12/21/19 12/22/19 12/22/19 17:16 00:01 01:33 WBC RBC Hgb Hct MCHC RDW MCV MCH Lymph % (Auto) [place] % (Auto) [place] # Eos # Lymph # (Auto) [place] # (Auto) Eos # (Auto) Seg Neutrophils % Seg Neuts % (Manual) Baso # (Auto) Lymphocytes % (Manual) Monocytes % (Manual) Eosinophils % (Manual) Basophils % (Manual) Seg Neutrophils # Seg Neutrophils # Man Lymphocytes # (Manual) Monocytes # (Manual) Eosinophils # (Manual) Nucleated RBC % Basophils # (Manual) PT INR APTT Heparin Anti-Xa Level 0.10 L ABG pH POC ABG pO2 ABG pO2 ABG HCO3 ABG O2 Saturation ABG Base Excess POC ABG pCO2 ABG Hemoglobin ABG Oxyhemoglobin ABG Glucose Oxyhemoglobin Sodium Potassium Chloride Carbon Dioxide BUN Creatinine Glucose POC Glucose 167 H 179 H Lactic Acid Calcium Phosphorus Magnesium AST ALT Lactate Dehydrogenase Total Bilirubin Direct Bilirubin CK-MB (CK-2) C-Reactive Protein NT-Pro-B Natriuret Pep Total Protein Albumin Arterial Blood Glucose Urine WBC (Auto) Urine Creatinine 12/22/19 12/22/19 12/22/19 03:22 05:10 05:10 WBC 13.8 H RBC 3.20 L Hgb 8.9 L Hct 28.1 L MCHC RDW 15.9 H MCV MCH Lymph % (Auto) [place] % (Auto) [place] # Eos # Lymph # (Auto) [place] # (Auto) Eos # (Auto) Seg Neutrophils % Seg Neuts % (Manual) Baso # (Auto) Lymphocytes % (Manual) Monocytes % (Manual) Eosinophils % (Manual) Basophils % (Manual) Seg Neutrophils # Seg Neutrophils # Man Lymphocytes # (Manual) Monocytes # (Manual) Eosinophils # (Manual) Nucleated RBC % Basophils # (Manual) PT INR APTT Heparin Anti-Xa Level ABG pH POC ABG pO2 52.3 L ABG pO2 ABG HCO3 ABG O2 Saturation ABG Base Excess POC ABG pCO2 52.9 H ABG Hemoglobin 10.7 L ABG Oxyhemoglobin 84 L ABG Glucose Oxyhemoglobin Sodium Potassium Chloride 96.6 L Carbon Dioxide BUN 25 H Creatinine 0.7 L Glucose 129 H POC Glucose Lactic Acid Calcium Phosphorus Magnesium AST ALT Lactate Dehydrogenase Total Bilirubin Direct Bilirubin CK-MB (CK-2) C-Reactive Protein NT-Pro-B Natriuret Pep Total Protein Albumin Arterial Blood Glucose Urine WBC (Auto) Urine Creatinine 12/22/19 12/22/19 12/22/19 05:18 12:32 12:43 WBC RBC Hgb Hct MCHC RDW MCV MCH Lymph % (Auto) [place] % (Auto) [place] # Eos # Lymph # (Auto) [place] # (Auto) Eos # (Auto) Seg Neutrophils % Seg Neuts % (Manual) Baso # (Auto) Lymphocytes % (Manual) Monocytes % (Manual) Eosinophils % (Manual) Basophils % (Manual) Seg Neutrophils # Seg Neutrophils # Man Lymphocytes # (Manual) Monocytes # (Manual) Eosinophils # (Manual) Nucleated RBC % Basophils # (Manual) PT INR APTT Heparin Anti-Xa Level 0.18 L ABG pH POC ABG pO2 ABG pO2 ABG HCO3 ABG O2 Saturation ABG Base Excess POC ABG pCO2 ABG Hemoglobin ABG Oxyhemoglobin ABG Glucose Oxyhemoglobin Sodium Potassium Chloride Carbon Dioxide BUN Creatinine Glucose POC Glucose 131 H 208 H Lactic Acid Calcium Phosphorus Magnesium AST ALT Lactate Dehydrogenase Total Bilirubin Direct Bilirubin CK-MB (CK-2) C-Reactive Protein NT-Pro-B Natriuret Pep Total Protein Albumin Arterial Blood Glucose Urine WBC (Auto) Urine Creatinine 12/22/19 12/22/19 12/23/19 17:44 23:20 03:51 WBC 15.2 H RBC 3.43 L Hgb 9.6 L Hct 30.3 L MCHC RDW 15.9 H MCV MCH Lymph % (Auto) [place] % (Auto) [place] # Eos # Lymph # (Auto) [place] # (Auto) Eos # (Auto) Seg Neutrophils % Seg Neuts % (Manual) Baso # (Auto) Lymphocytes % (Manual) Monocytes % (Manual) Eosinophils % (Manual) Basophils % (Manual) Seg Neutrophils # Seg Neutrophils # Man Lymphocytes # (Manual) Monocytes # (Manual) Eosinophils # (Manual) Nucleated RBC % Basophils # (Manual) PT INR APTT Heparin Anti-Xa Level ABG pH POC ABG pO2 ABG pO2 ABG HCO3 ABG O2 Saturation ABG Base Excess POC ABG pCO2 ABG Hemoglobin ABG Oxyhemoglobin ABG Glucose Oxyhemoglobin Sodium Potassium Chloride Carbon Dioxide BUN Creatinine Glucose POC Glucose 209 H 119 H Lactic Acid Calcium Phosphorus Magnesium AST ALT Lactate Dehydrogenase Total Bilirubin Direct Bilirubin CK-MB (CK-2) C-Reactive Protein NT-Pro-B Natriuret Pep Total Protein Albumin Arterial Blood Glucose Urine WBC (Auto) Urine Creatinine 12/23/19 12/23/19 12/23/19 03:51 05:31 12:09 WBC RBC Hgb Hct MCHC RDW MCV MCH Lymph % (Auto) [place] % (Auto) [place] # Eos # Lymph # (Auto) [place] # (Auto) Eos # (Auto) Seg Neutrophils % Seg Neuts % (Manual) Baso # (Auto) Lymphocytes % (Manual) Monocytes % (Manual) Eosinophils % (Manual) Basophils % (Manual) Seg Neutrophils # Seg Neutrophils # Man Lymphocytes # (Manual) Monocytes # (Manual) Eosinophils # (Manual) Nucleated RBC % Basophils # (Manual) PT INR APTT Heparin Anti-Xa Level ABG pH POC ABG pO2 ABG pO2 ABG HCO3 ABG O2 Saturation ABG Base Excess POC ABG pCO2 ABG Hemoglobin ABG Oxyhemoglobin ABG Glucose Oxyhemoglobin Sodium Potassium Chloride 97.2 L Carbon Dioxide 31 H BUN 23 H Creatinine 0.6 L Glucose 153 H POC Glucose 149 H 144 H Lactic Acid Calcium Phosphorus Magnesium AST ALT Lactate Dehydrogenase Total Bilirubin Direct Bilirubin CK-MB (CK-2) C-Reactive Protein NT-Pro-B Natriuret Pep Total Protein Albumin Arterial Blood Glucose Urine WBC (Auto) Urine Creatinine 12/23/19 12/23/19 12/23/19 15:30 17:49 23:31 WBC RBC Hgb Hct MCHC RDW MCV MCH Lymph % (Auto) [place] % (Auto) [place] # Eos # Lymph # (Auto) [place] # (Auto) Eos # (Auto) Seg Neutrophils % Seg Neuts % (Manual) Baso # (Auto) Lymphocytes % (Manual) Monocytes % (Manual) Eosinophils % (Manual) Basophils % (Manual) Seg Neutrophils # Seg Neutrophils # Man Lymphocytes # (Manual) Monocytes # (Manual) Eosinophils # (Manual) Nucleated RBC % Basophils # (Manual) PT INR APTT Heparin Anti-Xa Level 0.21 L ABG pH POC ABG pO2 ABG pO2 ABG HCO3 ABG O2 Saturation ABG Base Excess POC ABG pCO2 ABG Hemoglobin ABG Oxyhemoglobin ABG Glucose Oxyhemoglobin Sodium Potassium Chloride Carbon Dioxide BUN Creatinine Glucose POC Glucose 192 H 151 H Lactic Acid Calcium Phosphorus Magnesium AST ALT Lactate Dehydrogenase Total Bilirubin Direct Bilirubin CK-MB (CK-2) C-Reactive Protein NT-Pro-B Natriuret Pep Total Protein Albumin Arterial Blood Glucose Urine WBC (Auto) Urine Creatinine 12/24/19 12/24/19 12/24/19 05:34 12:13 16:50 WBC RBC Hgb Hct MCHC RDW MCV MCH Lymph % (Auto) [place] % (Auto) [place] # Eos # Lymph # (Auto) [place] # (Auto) Eos # (Auto) Seg Neutrophils % Seg Neuts % (Manual) Baso # (Auto) Lymphocytes % (Manual) Monocytes % (Manual) Eosinophils % (Manual) Basophils % (Manual) Seg Neutrophils # Seg Neutrophils # Man Lymphocytes # (Manual) Monocytes # (Manual) Eosinophils # (Manual) Nucleated RBC % Basophils # (Manual) PT INR APTT Heparin Anti-Xa Level 0.16 L ABG pH POC ABG pO2 ABG pO2 ABG HCO3 ABG O2 Saturation ABG Base Excess POC ABG pCO2 ABG Hemoglobin ABG Oxyhemoglobin ABG Glucose Oxyhemoglobin Sodium Potassium Chloride Carbon Dioxide BUN Creatinine Glucose POC Glucose 145 H 124 H Lactic Acid Calcium Phosphorus Magnesium AST ALT Lactate Dehydrogenase Total Bilirubin Direct Bilirubin CK-MB (CK-2) C-Reactive Protein NT-Pro-B Natriuret Pep Total Protein Albumin Arterial Blood Glucose Urine WBC (Auto) Urine Creatinine 12/24/19 12/25/19 12/25/19 17:53 00:14 04:18 WBC 12.9 H RBC 3.30 L Hgb 9.1 L Hct 28.8 L MCHC RDW 16.4 H MCV MCH Lymph % (Auto) [place] % (Auto) 7.8 H [place] # Eos # Lymph # (Auto) [place] # (Auto) 1.0 H Eos # (Auto) Seg Neutrophils % 75.5 H Seg Neuts % (Manual) Baso # (Auto) Lymphocytes % (Manual) Monocytes % (Manual) Eosinophils % (Manual) Basophils % (Manual) Seg Neutrophils # 9.7 H Seg Neutrophils # Man Lymphocytes # (Manual) Monocytes # (Manual) Eosinophils # (Manual) Nucleated RBC % Basophils # (Manual) PT INR APTT Heparin Anti-Xa Level ABG pH POC ABG pO2 ABG pO2 ABG HCO3 ABG O2 Saturation ABG Base Excess POC ABG pCO2 ABG Hemoglobin ABG Oxyhemoglobin ABG Glucose Oxyhemoglobin Sodium Potassium Chloride Carbon Dioxide BUN Creatinine Glucose POC Glucose 164 H 148 H Lactic Acid Calcium Phosphorus Magnesium AST ALT Lactate Dehydrogenase Total Bilirubin Direct Bilirubin CK-MB (CK-2) C-Reactive Protein NT-Pro-B Natriuret Pep Total Protein Albumin Arterial Blood Glucose Urine WBC (Auto) Urine Creatinine 12/25/19 12/25/19 12/25/19 04:18 05:38 11:44 WBC RBC Hgb Hct MCHC RDW MCV MCH Lymph % (Auto) [place] % (Auto) [place] # Eos # Lymph # (Auto) [place] # (Auto) Eos # (Auto) Seg Neutrophils % Seg Neuts % (Manual) Baso # (Auto) Lymphocytes % (Manual) Monocytes % (Manual) Eosinophils % (Manual) Basophils % (Manual) Seg Neutrophils # Seg Neutrophils # Man Lymphocytes # (Manual) Monocytes # (Manual) Eosinophils # (Manual) Nucleated RBC % Basophils # (Manual) PT INR APTT Heparin Anti-Xa Level ABG pH POC ABG pO2 ABG pO2 ABG HCO3 ABG O2 Saturation ABG Base Excess POC ABG pCO2 ABG Hemoglobin ABG Oxyhemoglobin ABG Glucose Oxyhemoglobin Sodium Potassium Chloride Carbon Dioxide 33 H BUN 27 H Creatinine 0.6 L Glucose 132 H POC Glucose 152 H 166 H Lactic Acid Calcium Phosphorus Magnesium AST ALT Lactate Dehydrogenase Total Bilirubin Direct Bilirubin CK-MB (CK-2) C-Reactive Protein NT-Pro-B Natriuret Pep Total Protein Albumin Arterial Blood Glucose Urine WBC (Auto) Urine Creatinine 12/25/19 12/26/19 12/26/19 18:29 00:17 00:18 WBC RBC Hgb Hct MCHC RDW MCV MCH Lymph % (Auto) [place] % (Auto) [place] # Eos # Lymph # (Auto) [place] # (Auto) Eos # (Auto) Seg Neutrophils % Seg Neuts % (Manual) Baso # (Auto) Lymphocytes % (Manual) Monocytes % (Manual) Eosinophils % (Manual) Basophils % (Manual) Seg Neutrophils # Seg Neutrophils # Man Lymphocytes # (Manual) Monocytes # (Manual) Eosinophils # (Manual) Nucleated RBC % Basophils # (Manual) PT INR APTT Heparin Anti-Xa Level ABG pH POC ABG pO2 ABG pO2 ABG HCO3 ABG O2 Saturation ABG Base Excess POC ABG pCO2 ABG Hemoglobin ABG Oxyhemoglobin ABG Glucose Oxyhemoglobin Sodium Potassium Chloride 97.8 L Carbon Dioxide BUN 25 H Creatinine 0.6 L Glucose 140 H POC Glucose 194 H 151 H Lactic Acid Calcium Phosphorus Magnesium AST ALT Lactate Dehydrogenase Total Bilirubin Direct Bilirubin CK-MB (CK-2) C-Reactive Protein NT-Pro-B Natriuret Pep Total Protein Albumin Arterial Blood Glucose Urine WBC (Auto) Urine Creatinine 12/26/19 12/26/19 12/26/19 05:36 11:41 17:50 WBC RBC Hgb Hct MCHC RDW MCV MCH Lymph % (Auto) [place] % (Auto) [place] # Eos # Lymph # (Auto) [place] # (Auto) Eos # (Auto) Seg Neutrophils % Seg Neuts % (Manual) Baso # (Auto) Lymphocytes % (Manual) Monocytes % (Manual) Eosinophils % (Manual) Basophils % (Manual) Seg Neutrophils # Seg Neutrophils # Man Lymphocytes # (Manual) Monocytes # (Manual) Eosinophils # (Manual) Nucleated RBC % Basophils # (Manual) PT INR APTT Heparin Anti-Xa Level ABG pH POC ABG pO2 ABG pO2 ABG HCO3 ABG O2 Saturation ABG Base Excess POC ABG pCO2 ABG Hemoglobin ABG Oxyhemoglobin ABG Glucose Oxyhemoglobin Sodium Potassium Chloride Carbon Dioxide BUN Creatinine Glucose POC Glucose 156 H 148 H 139 H Lactic Acid Calcium Phosphorus Magnesium AST ALT Lactate Dehydrogenase Total Bilirubin Direct Bilirubin CK-MB (CK-2) C-Reactive Protein NT-Pro-B Natriuret Pep Total Protein Albumin Arterial Blood Glucose Urine WBC (Auto) Urine Creatinine 12/26/19 12/27/19 12/27/19 23:19 05:34 12:02 WBC RBC Hgb Hct MCHC RDW MCV MCH Lymph % (Auto) [place] % (Auto) [place] # Eos # Lymph # (Auto) [place] # (Auto) Eos # (Auto) Seg Neutrophils % Seg Neuts % (Manual) Baso # (Auto) Lymphocytes % (Manual) Monocytes % (Manual) Eosinophils % (Manual) Basophils % (Manual) Seg Neutrophils # Seg Neutrophils # Man Lymphocytes # (Manual) Monocytes # (Manual) Eosinophils # (Manual) Nucleated RBC % Basophils # (Manual) PT INR APTT Heparin Anti-Xa Level ABG pH POC ABG pO2 ABG pO2 ABG HCO3 ABG O2 Saturation ABG Base Excess POC ABG pCO2 ABG Hemoglobin ABG Oxyhemoglobin ABG Glucose Oxyhemoglobin Sodium Potassium Chloride Carbon Dioxide BUN Creatinine Glucose POC Glucose 161 H 145 H 157 H Lactic Acid Calcium Phosphorus Magnesium AST ALT Lactate Dehydrogenase Total Bilirubin Direct Bilirubin CK-MB (CK-2) C-Reactive Protein NT-Pro-B Natriuret Pep Total Protein Albumin Arterial Blood Glucose Urine WBC (Auto) Urine Creatinine 12/27/19 12/27/19 12/27/19 17:35 20:11 23:00 WBC RBC Hgb Hct MCHC RDW MCV MCH Lymph % (Auto) [place] % (Auto) [place] # Eos # Lymph # (Auto) [place] # (Auto) Eos # (Auto) Seg Neutrophils % Seg Neuts % (Manual) Baso # (Auto) Lymphocytes % (Manual) Monocytes % (Manual) Eosinophils % (Manual) Basophils % (Manual) Seg Neutrophils # Seg Neutrophils # Man Lymphocytes # (Manual) Monocytes # (Manual) Eosinophils # (Manual) Nucleated RBC % Basophils # (Manual) PT INR APTT Heparin Anti-Xa Level 0.19 L ABG pH POC ABG pO2 ABG pO2 ABG HCO3 ABG O2 Saturation ABG Base Excess POC ABG pCO2 ABG Hemoglobin ABG Oxyhemoglobin ABG Glucose Oxyhemoglobin Sodium Potassium Chloride Carbon Dioxide BUN Creatinine Glucose POC Glucose 158 H 155 H Lactic Acid Calcium Phosphorus Magnesium AST ALT Lactate Dehydrogenase Total Bilirubin Direct Bilirubin CK-MB (CK-2) C-Reactive Protein NT-Pro-B Natriuret Pep Total Protein Albumin Arterial Blood Glucose Urine WBC (Auto) Urine Creatinine 12/27/19 12/28/19 12/28/19 23:45 02:41 02:41 WBC 13.0 H RBC 3.48 L Hgb 9.5 L Hct 30.6 L MCHC 31 L RDW 16.6 H MCV MCH 27 L Lymph % (Auto) 13.0 L [place] % (Auto) 8.0 H [place] # Eos # Lymph # (Auto) [place] # (Auto) 1.0 H Eos # (Auto) Seg Neutrophils % 76.3 H Seg Neuts % (Manual) Baso # (Auto) Lymphocytes % (Manual) Monocytes % (Manual) Eosinophils % (Manual) Basophils % (Manual) Seg Neutrophils # 9.9 H Seg Neutrophils # Man Lymphocytes # (Manual) Monocytes # (Manual) Eosinophils # (Manual) Nucleated RBC % Basophils # (Manual) PT INR APTT Heparin Anti-Xa Level ABG pH POC ABG pO2 ABG pO2 ABG HCO3 ABG O2 Saturation ABG Base Excess POC ABG pCO2 ABG Hemoglobin ABG Oxyhemoglobin ABG Glucose Oxyhemoglobin Sodium Potassium Chloride Carbon Dioxide BUN 22 H Creatinine 0.6 L Glucose 101 H POC Glucose 130 H Lactic Acid Calcium Phosphorus Magnesium AST ALT Lactate Dehydrogenase Total Bilirubin Direct Bilirubin CK-MB (CK-2) C-Reactive Protein NT-Pro-B Natriuret Pep Total Protein Albumin Arterial Blood Glucose Urine WBC (Auto) Urine Creatinine 12/28/19 12/28/19 12/28/19 06:00 12:34 18:13 WBC RBC Hgb Hct MCHC RDW MCV MCH Lymph % (Auto) [place] % (Auto) [place] # Eos # Lymph # (Auto) [place] # (Auto) Eos # (Auto) Seg Neutrophils % Seg Neuts % (Manual) Baso # (Auto) Lymphocytes % (Manual) Monocytes % (Manual) Eosinophils % (Manual) Basophils % (Manual) Seg Neutrophils # Seg Neutrophils # Man Lymphocytes # (Manual) Monocytes # (Manual) Eosinophils # (Manual) Nucleated RBC % Basophils # (Manual) PT INR APTT Heparin Anti-Xa Level ABG pH POC ABG pO2 ABG pO2 ABG HCO3 ABG O2 Saturation ABG Base Excess POC ABG pCO2 ABG Hemoglobin ABG Oxyhemoglobin ABG Glucose Oxyhemoglobin Sodium Potassium Chloride Carbon Dioxide BUN Creatinine Glucose POC Glucose 150 H 161 H 128 H Lactic Acid Calcium Phosphorus Magnesium AST ALT Lactate Dehydrogenase Total Bilirubin Direct Bilirubin CK-MB (CK-2) C-Reactive Protein NT-Pro-B Natriuret Pep Total Protein Albumin Arterial Blood Glucose Urine WBC (Auto) Urine Creatinine 12/28/19 12/29/19 12/29/19 23:36 05:21 11:40 WBC RBC Hgb Hct MCHC RDW MCV MCH Lymph % (Auto) [place] % (Auto) [place] # Eos # Lymph # (Auto) [place] # (Auto) Eos # (Auto) Seg Neutrophils % Seg Neuts % (Manual) Baso # (Auto) Lymphocytes % (Manual) Monocytes % (Manual) Eosinophils % (Manual) Basophils % (Manual) Seg Neutrophils # Seg Neutrophils # Man Lymphocytes # (Manual) Monocytes # (Manual) Eosinophils # (Manual) Nucleated RBC % Basophils # (Manual) PT INR APTT Heparin Anti-Xa Level ABG pH POC ABG pO2 ABG pO2 ABG HCO3 ABG O2 Saturation ABG Base Excess POC ABG pCO2 ABG Hemoglobin ABG Oxyhemoglobin ABG Glucose Oxyhemoglobin Sodium Potassium Chloride Carbon Dioxide BUN Creatinine Glucose POC Glucose 137 H 136 H 166 H Lactic Acid Calcium Phosphorus Magnesium AST ALT Lactate Dehydrogenase Total Bilirubin Direct Bilirubin CK-MB (CK-2) C-Reactive Protein NT-Pro-B Natriuret Pep Total Protein Albumin Arterial Blood Glucose Urine WBC (Auto) Urine Creatinine 12/29/19 12/29/19 12/29/19 17:23 19:21 23:38 WBC RBC Hgb Hct MCHC RDW MCV MCH Lymph % (Auto) [place] % (Auto) [place] # Eos # Lymph # (Auto) [place] # (Auto) Eos # (Auto) Seg Neutrophils % Seg Neuts % (Manual) Baso # (Auto) Lymphocytes % (Manual) Monocytes % (Manual) Eosinophils % (Manual) Basophils % (Manual) Seg Neutrophils # Seg Neutrophils # Man Lymphocytes # (Manual) Monocytes # (Manual) Eosinophils # (Manual) Nucleated RBC % Basophils # (Manual) PT INR APTT Heparin Anti-Xa Level 0.20 L ABG pH POC ABG pO2 ABG pO2 ABG HCO3 ABG O2 Saturation ABG Base Excess POC ABG pCO2 ABG Hemoglobin ABG Oxyhemoglobin ABG Glucose Oxyhemoglobin Sodium Potassium Chloride Carbon Dioxide BUN Creatinine Glucose POC Glucose 144 H 141 H Lactic Acid Calcium Phosphorus Magnesium AST ALT Lactate Dehydrogenase Total Bilirubin Direct Bilirubin CK-MB (CK-2) C-Reactive Protein NT-Pro-B Natriuret Pep Total Protein Albumin Arterial Blood Glucose Urine WBC (Auto) Urine Creatinine 12/30/19 12/30/19 12/30/19 03:58 03:58 04:59 WBC RBC 3.54 L Hgb 9.8 L Hct 30.7 L MCHC RDW 16.8 H MCV MCH Lymph % (Auto) [place] % (Auto) [place] # Eos # Lymph # (Auto) [place] # (Auto) Eos # (Auto) Seg Neutrophils % Seg Neuts % (Manual) Baso # (Auto) Lymphocytes % (Manual) Monocytes % (Manual) Eosinophils % (Manual) Basophils % (Manual) Seg Neutrophils # Seg Neutrophils # Man Lymphocytes # (Manual) Monocytes # (Manual) Eosinophils # (Manual) Nucleated RBC % Basophils # (Manual) PT INR APTT Heparin Anti-Xa Level ABG pH POC ABG pO2 ABG pO2 ABG HCO3 29.8 H ABG O2 Saturation ABG Base Excess 4.8 H POC ABG pCO2 ABG Hemoglobin 11.2 L ABG Oxyhemoglobin ABG Glucose Oxyhemoglobin 93.8 L Sodium Potassium Chloride 97.8 L Carbon Dioxide BUN 26 H Creatinine Glucose 168 H POC Glucose Lactic Acid Calcium Phosphorus Magnesium AST ALT Lactate Dehydrogenase Total Bilirubin Direct Bilirubin CK-MB (CK-2) C-Reactive Protein NT-Pro-B Natriuret Pep Total Protein Albumin Arterial Blood Glucose Urine WBC (Auto) Urine Creatinine 12/30/19 12/30/19 12/30/19 05:45 11:34 17:28 WBC RBC Hgb Hct MCHC RDW MCV MCH Lymph % (Auto) [place] % (Auto) [place] # Eos # Lymph # (Auto) [place] # (Auto) Eos # (Auto) Seg Neutrophils % Seg Neuts % (Manual) Baso # (Auto) Lymphocytes % (Manual) Monocytes % (Manual) Eosinophils % (Manual) Basophils % (Manual) Seg Neutrophils # Seg Neutrophils # Man Lymphocytes # (Manual) Monocytes # (Manual) Eosinophils # (Manual) Nucleated RBC % Basophils # (Manual) PT INR APTT Heparin Anti-Xa Level ABG pH POC ABG pO2 ABG pO2 ABG HCO3 ABG O2 Saturation ABG Base Excess POC ABG pCO2 ABG Hemoglobin ABG Oxyhemoglobin ABG Glucose Oxyhemoglobin Sodium Potassium Chloride Carbon Dioxide BUN Creatinine Glucose POC Glucose 163 H 180 H 150 H Lactic Acid Calcium Phosphorus Magnesium AST ALT Lactate Dehydrogenase Total Bilirubin Direct Bilirubin CK-MB (CK-2) C-Reactive Protein NT-Pro-B Natriuret Pep Total Protein Albumin Arterial Blood Glucose Urine WBC (Auto) Urine Creatinine 12/30/19 12/31/19 12/31/19 23:43 04:55 05:07 WBC RBC Hgb Hct MCHC RDW MCV MCH Lymph % (Auto) [place] % (Auto) [place] # Eos # Lymph # (Auto) [place] # (Auto) Eos # (Auto) Seg Neutrophils % Seg Neuts % (Manual) Baso # (Auto) Lymphocytes % (Manual) Monocytes % (Manual) Eosinophils % (Manual) Basophils % (Manual) Seg Neutrophils # Seg Neutrophils # Man Lymphocytes # (Manual) Monocytes # (Manual) Eosinophils # (Manual) Nucleated RBC % Basophils # (Manual) PT INR APTT Heparin Anti-Xa Level ABG pH POC ABG pO2 ABG pO2 ABG HCO3 ABG O2 Saturation ABG Base Excess POC ABG pCO2 ABG Hemoglobin ABG Oxyhemoglobin ABG Glucose Oxyhemoglobin Sodium Potassium 5.6 H D Chloride Carbon Dioxide BUN 33 H Creatinine Glucose 131 H POC Glucose 142 H 134 H Lactic Acid Calcium Phosphorus Magnesium AST ALT Lactate Dehydrogenase Total Bilirubin Direct Bilirubin CK-MB (CK-2) C-Reactive Protein NT-Pro-B Natriuret Pep Total Protein Albumin Arterial Blood Glucose Urine WBC (Auto) Urine Creatinine 12/31/19 12/31/19 12/31/19 11:30 17:19 17:36 WBC RBC Hgb Hct MCHC RDW MCV MCH Lymph % (Auto) [place] % (Auto) [place] # Eos # Lymph # (Auto) [place] # (Auto) Eos # (Auto) Seg Neutrophils % Seg Neuts % (Manual) Baso # (Auto) Lymphocytes % (Manual) Monocytes % (Manual) Eosinophils % (Manual) Basophils % (Manual) Seg Neutrophils # Seg Neutrophils # Man Lymphocytes # (Manual) Monocytes # (Manual) Eosinophils # (Manual) Nucleated RBC % Basophils # (Manual) PT INR APTT Heparin Anti-Xa Level ABG pH POC ABG pO2 ABG pO2 ABG HCO3 ABG O2 Saturation ABG Base Excess POC ABG pCO2 ABG Hemoglobin ABG Oxyhemoglobin ABG Glucose Oxyhemoglobin Sodium Potassium Chloride Carbon Dioxide BUN 35 H Creatinine Glucose 156 H POC Glucose 158 H 181 H Lactic Acid Calcium Phosphorus Magnesium AST ALT Lactate Dehydrogenase Total Bilirubin Direct Bilirubin CK-MB (CK-2) C-Reactive Protein NT-Pro-B Natriuret Pep Total Protein Albumin Arterial Blood Glucose Urine WBC (Auto) Urine Creatinine 12/31/19 12/31/19 12/31/19 18:16 19:41 21:53 WBC RBC Hgb Hct MCHC RDW MCV MCH Lymph % (Auto) [place] % (Auto) [place] # Eos # Lymph # (Auto) [place] # (Auto) Eos # (Auto) Seg Neutrophils % Seg Neuts % (Manual) Baso # (Auto) Lymphocytes % (Manual) Monocytes % (Manual) Eosinophils % (Manual) Basophils % (Manual) Seg Neutrophils # Seg Neutrophils # Man Lymphocytes # (Manual) Monocytes # (Manual) Eosinophils # (Manual) Nucleated RBC % Basophils # (Manual) PT INR APTT Heparin Anti-Xa Level 0.20 L ABG pH POC ABG pO2 ABG pO2 ABG HCO3 ABG O2 Saturation ABG Base Excess POC ABG pCO2 ABG Hemoglobin ABG Oxyhemoglobin ABG Glucose Oxyhemoglobin Sodium Potassium Chloride Carbon Dioxide BUN 34 H Creatinine Glucose 169 H POC Glucose 141 H Lactic Acid Calcium Phosphorus Magnesium AST ALT Lactate Dehydrogenase Total Bilirubin Direct Bilirubin CK-MB (CK-2) C-Reactive Protein NT-Pro-B Natriuret Pep Total Protein Albumin Arterial Blood Glucose Urine WBC (Auto) Urine Creatinine 12/31/19 01/01/20 01/01/20 23:51 05:17 10:40 WBC RBC Hgb Hct MCHC RDW MCV MCH Lymph % (Auto) [place] % (Auto) [place] # Eos # Lymph # (Auto) [place] # (Auto) Eos # (Auto) Seg Neutrophils % Seg Neuts % (Manual) Baso # (Auto) Lymphocytes % (Manual) Monocytes % (Manual) Eosinophils % (Manual) Basophils % (Manual) Seg Neutrophils # Seg Neutrophils # Man Lymphocytes # (Manual) Monocytes # (Manual) Eosinophils # (Manual) Nucleated RBC % Basophils # (Manual) PT INR APTT Heparin Anti-Xa Level ABG pH POC ABG pO2 ABG pO2 ABG HCO3 ABG O2 Saturation ABG Base Excess POC ABG pCO2 ABG Hemoglobin ABG Oxyhemoglobin ABG Glucose Oxyhemoglobin Sodium Potassium Chloride Carbon Dioxide BUN 31 H Creatinine 0.7 L Glucose 137 H POC Glucose 131 H 155 H Lactic Acid Calcium Phosphorus Magnesium AST 73 H ALT 97 H Lactate Dehydrogenase Total Bilirubin Direct Bilirubin CK-MB (CK-2) C-Reactive Protein NT-Pro-B Natriuret Pep 3866 H Total Protein Albumin 2.8 L Arterial Blood Glucose Urine WBC (Auto) Urine Creatinine 01/01/20 01/01/20 01/01/20 12:26 15:33 17:53 WBC 14.3 H RBC 3.35 L Hgb 9.1 L Hct 28.8 L MCHC RDW 17.0 H MCV MCH 27 L Lymph % (Auto) 7.0 L [place] % (Auto) 7.6 H [place] # Eos # Lymph # (Auto) 1.0 L [place] # (Auto) 1.1 H Eos # (Auto) Seg Neutrophils % 83.3 H Seg Neuts % (Manual) Baso # (Auto) Lymphocytes % (Manual) Monocytes % (Manual) Eosinophils % (Manual) Basophils % (Manual) Seg Neutrophils # 12.0 H Seg Neutrophils # Man Lymphocytes # (Manual) Monocytes # (Manual) Eosinophils # (Manual) Nucleated RBC % Basophils # (Manual) PT INR APTT Heparin Anti-Xa Level ABG pH POC ABG pO2 ABG pO2 ABG HCO3 ABG O2 Saturation ABG Base Excess POC ABG pCO2 ABG Hemoglobin ABG Oxyhemoglobin ABG Glucose Oxyhemoglobin Sodium Potassium Chloride Carbon Dioxide BUN Creatinine Glucose POC Glucose 128 H 128 H Lactic Acid Calcium Phosphorus Magnesium AST ALT Lactate Dehydrogenase Total Bilirubin Direct Bilirubin CK-MB (CK-2) C-Reactive Protein NT-Pro-B Natriuret Pep Total Protein Albumin Arterial Blood Glucose Urine WBC (Auto) Urine Creatinine 01/01/20 01/02/20 01/02/20 23:04 05:39 07:00 WBC RBC Hgb Hct MCHC RDW MCV MCH Lymph % (Auto) [place] % (Auto) [place] # Eos # Lymph # (Auto) [place] # (Auto) Eos # (Auto) Seg Neutrophils % Seg Neuts % (Manual) Baso # (Auto) Lymphocytes % (Manual) Monocytes % (Manual) Eosinophils % (Manual) Basophils % (Manual) Seg Neutrophils # Seg Neutrophils # Man Lymphocytes # (Manual) Monocytes # (Manual) Eosinophils # (Manual) Nucleated RBC % Basophils # (Manual) PT INR APTT Heparin Anti-Xa Level 0.13 L ABG pH POC ABG pO2 ABG pO2 ABG HCO3 ABG O2 Saturation ABG Base Excess POC ABG pCO2 ABG Hemoglobin ABG Oxyhemoglobin ABG Glucose Oxyhemoglobin Sodium Potassium Chloride Carbon Dioxide BUN Creatinine Glucose POC Glucose 120 H 169 H Lactic Acid Calcium Phosphorus Magnesium AST ALT Lactate Dehydrogenase Total Bilirubin Direct Bilirubin CK-MB (CK-2) C-Reactive Protein NT-Pro-B Natriuret Pep Total Protein Albumin Arterial Blood Glucose Urine WBC (Auto) Urine Creatinine 01/02/20 01/02/20 01/02/20 12:15 14:06 17:58 WBC RBC Hgb Hct MCHC RDW MCV MCH Lymph % (Auto) [place] % (Auto) [place] # Eos # Lymph # (Auto) [place] # (Auto) Eos # (Auto) Seg Neutrophils % Seg Neuts % (Manual) Baso # (Auto) Lymphocytes % (Manual) Monocytes % (Manual) Eosinophils % (Manual) Basophils % (Manual) Seg Neutrophils # Seg Neutrophils # Man Lymphocytes # (Manual) Monocytes # (Manual) Eosinophils # (Manual) Nucleated RBC % Basophils # (Manual) PT INR APTT Heparin Anti-Xa Level < 0.10 L ABG pH POC ABG pO2 ABG pO2 ABG HCO3 ABG O2 Saturation ABG Base Excess POC ABG pCO2 ABG Hemoglobin ABG Oxyhemoglobin ABG Glucose Oxyhemoglobin Sodium Potassium Chloride Carbon Dioxide BUN Creatinine Glucose POC Glucose 190 H 198 H Lactic Acid Calcium Phosphorus Magnesium AST ALT Lactate Dehydrogenase Total Bilirubin Direct Bilirubin CK-MB (CK-2) C-Reactive Protein NT-Pro-B Natriuret Pep Total Protein Albumin Arterial Blood Glucose Urine WBC (Auto) Urine Creatinine 01/02/20 01/02/20 01/03/20 21:43 23:33 05:42 WBC RBC Hgb Hct MCHC RDW MCV MCH Lymph % (Auto) [place] % (Auto) [place] # Eos # Lymph # (Auto) [place] # (Auto) Eos # (Auto) Seg Neutrophils % Seg Neuts % (Manual) Baso # (Auto) Lymphocytes % (Manual) Monocytes % (Manual) Eosinophils % (Manual) Basophils % (Manual) Seg Neutrophils # Seg Neutrophils # Man Lymphocytes # (Manual) Monocytes # (Manual) Eosinophils # (Manual) Nucleated RBC % Basophils # (Manual) PT INR APTT Heparin Anti-Xa Level 0.10 L ABG pH POC ABG pO2 ABG pO2 ABG HCO3 ABG O2 Saturation ABG Base Excess POC ABG pCO2 ABG Hemoglobin ABG Oxyhemoglobin ABG Glucose Oxyhemoglobin Sodium Potassium Chloride Carbon Dioxide BUN Creatinine Glucose POC Glucose 180 H 163 H Lactic Acid Calcium Phosphorus Magnesium AST ALT Lactate Dehydrogenase Total Bilirubin Direct Bilirubin CK-MB (CK-2) C-Reactive Protein NT-Pro-B Natriuret Pep Total Protein Albumin Arterial Blood Glucose Urine WBC (Auto) Urine Creatinine 01/03/20 01/03/20 01/03/20 06:50 07:25 07:45 WBC 12.1 H RBC 3.35 L Hgb 9.0 L Hct 28.9 L MCHC 31 L RDW 16.6 H MCV MCH 27 L Lymph % (Auto) 13.0 L [place] % (Auto) 8.6 H [place] # Eos # Lymph # (Auto) [place] # (Auto) 1.0 H Eos # (Auto) Seg Neutrophils % 75.9 H Seg Neuts % (Manual) Baso # (Auto) Lymphocytes % (Manual) Monocytes % (Manual) Eosinophils % (Manual) Basophils % (Manual) Seg Neutrophils # 9.2 H Seg Neutrophils # Man Lymphocytes # (Manual) Monocytes # (Manual) Eosinophils # (Manual) Nucleated RBC % Basophils # (Manual) PT INR APTT Heparin Anti-Xa Level 0.29 L ABG pH POC ABG pO2 ABG pO2 ABG HCO3 ABG O2 Saturation ABG Base Excess POC ABG pCO2 ABG Hemoglobin ABG Oxyhemoglobin ABG Glucose Oxyhemoglobin Sodium Potassium 3.3 L D Chloride Carbon Dioxide 35 H D BUN 23 H Creatinine 0.6 L Glucose 149 H POC Glucose Lactic Acid Calcium Phosphorus Magnesium AST ALT 88 H Lactate Dehydrogenase Total Bilirubin Direct Bilirubin CK-MB (CK-2) C-Reactive Protein NT-Pro-B Natriuret Pep Total Protein 6.2 L Albumin 2.9 L Arterial Blood Glucose Urine WBC (Auto) Urine Creatinine 01/03/20 01/03/20 01/03/20 12:05 17:42 18:30 WBC RBC Hgb Hct MCHC RDW MCV MCH Lymph % (Auto) [place] % (Auto) [place] # Eos # Lymph # (Auto) [place] # (Auto) Eos # (Auto) Seg Neutrophils % Seg Neuts % (Manual) Baso # (Auto) Lymphocytes % (Manual) Monocytes % (Manual) Eosinophils % (Manual) Basophils % (Manual) Seg Neutrophils # Seg Neutrophils # Man Lymphocytes # (Manual) Monocytes # (Manual) Eosinophils # (Manual) Nucleated RBC % Basophils # (Manual) PT INR APTT Heparin Anti-Xa Level ABG pH POC ABG pO2 ABG pO2 70.7 L ABG HCO3 36.1 H ABG O2 Saturation 94.4 L ABG Base Excess 10.0 H POC ABG pCO2 ABG Hemoglobin 9.7 L ABG Oxyhemoglobin ABG Glucose Oxyhemoglobin 91.8 L Sodium Potassium Chloride Carbon Dioxide BUN Creatinine Glucose POC Glucose 128 H 132 H Lactic Acid Calcium Phosphorus Magnesium AST ALT Lactate Dehydrogenase Total Bilirubin Direct Bilirubin CK-MB (CK-2) C-Reactive Protein NT-Pro-B Natriuret Pep Total Protein Albumin Arterial Blood Glucose Urine WBC (Auto) Urine Creatinine 01/04/20 01/04/20 01/04/20 00:10 04:26 05:23 WBC RBC Hgb Hct MCHC RDW MCV MCH Lymph % (Auto) [place] % (Auto) [place] # Eos # Lymph # (Auto) [place] # (Auto) Eos # (Auto) Seg Neutrophils % Seg Neuts % (Manual) Baso # (Auto) Lymphocytes % (Manual) Monocytes % (Manual) Eosinophils % (Manual) Basophils % (Manual) Seg Neutrophils # Seg Neutrophils # Man Lymphocytes # (Manual) Monocytes # (Manual) Eosinophils # (Manual) Nucleated RBC % Basophils # (Manual) PT INR APTT Heparin Anti-Xa Level 0.16 L ABG pH POC ABG pO2 ABG pO2 ABG HCO3 ABG O2 Saturation ABG Base Excess POC ABG pCO2 ABG Hemoglobin ABG Oxyhemoglobin ABG Glucose Oxyhemoglobin Sodium Potassium Chloride Carbon Dioxide BUN Creatinine Glucose POC Glucose 121 H 119 H Lactic Acid Calcium Phosphorus Magnesium AST ALT Lactate Dehydrogenase Total Bilirubin Direct Bilirubin CK-MB (CK-2) C-Reactive Protein NT-Pro-B Natriuret Pep Total Protein Albumin Arterial Blood Glucose Urine WBC (Auto) Urine Creatinine 01/04/20 01/04/20 01/04/20 09:50 09:50 12:18 WBC 15.4 H RBC 3.30 L Hgb 8.7 L Hct 28.2 L MCHC 31 L RDW 17.0 H MCV MCH 26 L Lymph % (Auto) [place] % (Auto) 7.6 H [place] # Eos # Lymph # (Auto) [place] # (Auto) 1.2 H Eos # (Auto) Seg Neutrophils % 75.4 H Seg Neuts % (Manual) Baso # (Auto) Lymphocytes % (Manual) Monocytes % (Manual) Eosinophils % (Manual) Basophils % (Manual) Seg Neutrophils # 11.6 H Seg Neutrophils # Man Lymphocytes # (Manual) Monocytes # (Manual) Eosinophils # (Manual) Nucleated RBC % Basophils # (Manual) PT INR APTT Heparin Anti-Xa Level ABG pH POC ABG pO2 ABG pO2 ABG HCO3 ABG O2 Saturation ABG Base Excess POC ABG pCO2 ABG Hemoglobin ABG Oxyhemoglobin ABG Glucose Oxyhemoglobin Sodium 148 H Potassium 3.5 L Chloride Carbon Dioxide 32 H BUN Creatinine 0.6 L Glucose 114 H POC Glucose 111 H Lactic Acid Calcium Phosphorus Magnesium AST ALT 59 H Lactate Dehydrogenase Total Bilirubin Direct Bilirubin CK-MB (CK-2) C-Reactive Protein NT-Pro-B Natriuret Pep Total Protein Albumin 2.6 L Arterial Blood Glucose Urine WBC (Auto) Urine Creatinine 01/05/20 01/05/20 01/05/20 04:05 04:05 05:19 WBC 11.7 H RBC 3.50 L Hgb 9.3 L Hct 29.9 L MCHC 31 L RDW 16.6 H MCV MCH 27 L Lymph % (Auto) 13.1 L [place] % (Auto) 9.7 H [place] # Eos # Lymph # (Auto) [place] # (Auto) 1.1 H Eos # (Auto) Seg Neutrophils % 74.0 H Seg Neuts % (Manual) Baso # (Auto) Lymphocytes % (Manual) Monocytes % (Manual) Eosinophils % (Manual) Basophils % (Manual) Seg Neutrophils # 8.6 H Seg Neutrophils # Man Lymphocytes # (Manual) Monocytes # (Manual) Eosinophils # (Manual) Nucleated RBC % Basophils # (Manual) PT INR APTT Heparin Anti-Xa Level ABG pH POC ABG pO2 ABG pO2 ABG HCO3 ABG O2 Saturation ABG Base Excess POC ABG pCO2 ABG Hemoglobin ABG Oxyhemoglobin ABG Glucose Oxyhemoglobin Sodium 151 H Potassium Chloride Carbon Dioxide 34 H BUN Creatinine 0.7 L Glucose POC Glucose 112 H Lactic Acid Calcium Phosphorus Magnesium AST ALT 59 H Lactate Dehydrogenase Total Bilirubin Direct Bilirubin CK-MB (CK-2) C-Reactive Protein NT-Pro-B Natriuret Pep Total Protein 5.8 L Albumin 2.6 L Arterial Blood Glucose Urine WBC (Auto) Urine Creatinine 01/05/20 01/06/20 01/06/20 16:04 00:23 04:44 WBC RBC 3.36 L Hgb 8.9 L Hct 28.7 L MCHC 31 L RDW 16.9 H MCV MCH 26 L Lymph % (Auto) [place] % (Auto) 9.4 H [place] # Eos # Lymph # (Auto) [place] # (Auto) Eos # (Auto) Seg Neutrophils % Seg Neuts % (Manual) Baso # (Auto) Lymphocytes % (Manual) Monocytes % (Manual) Eosinophils % (Manual) Basophils % (Manual) Seg Neutrophils # Seg Neutrophils # Man Lymphocytes # (Manual) Monocytes # (Manual) Eosinophils # (Manual) Nucleated RBC % Basophils # (Manual) PT INR APTT Heparin Anti-Xa Level ABG pH POC ABG pO2 ABG pO2 ABG HCO3 ABG O2 Saturation ABG Base Excess POC ABG pCO2 ABG Hemoglobin ABG Oxyhemoglobin ABG Glucose Oxyhemoglobin Sodium 151 H Potassium 3.2 L Chloride Carbon Dioxide 34 H BUN Creatinine 0.6 L Glucose POC Glucose 107 H Lactic Acid Calcium Phosphorus Magnesium AST ALT Lactate Dehydrogenase Total Bilirubin Direct Bilirubin CK-MB (CK-2) C-Reactive Protein NT-Pro-B Natriuret Pep Total Protein Albumin Arterial Blood Glucose Urine WBC (Auto) Urine Creatinine 01/06/20 01/06/20 01/06/20 04:44 05:33 12:04 WBC RBC Hgb Hct MCHC RDW MCV MCH Lymph % (Auto) [place] % (Auto) [place] # Eos # Lymph # (Auto) [place] # (Auto) Eos # (Auto) Seg Neutrophils % Seg Neuts % (Manual) Baso # (Auto) Lymphocytes % (Manual) Monocytes % (Manual) Eosinophils % (Manual) Basophils % (Manual) Seg Neutrophils # Seg Neutrophils # Man Lymphocytes # (Manual) Monocytes # (Manual) Eosinophils # (Manual) Nucleated RBC % Basophils # (Manual) PT INR APTT Heparin Anti-Xa Level ABG pH POC ABG pO2 ABG pO2 ABG HCO3 ABG O2 Saturation ABG Base Excess POC ABG pCO2 ABG Hemoglobin ABG Oxyhemoglobin ABG Glucose Oxyhemoglobin Sodium 151 H Potassium 3.4 L Chloride Carbon Dioxide 33 H BUN Creatinine 0.6 L Glucose 118 H POC Glucose 118 H 123 H Lactic Acid Calcium Phosphorus Magnesium AST ALT Lactate Dehydrogenase Total Bilirubin Direct Bilirubin CK-MB (CK-2) C-Reactive Protein NT-Pro-B Natriuret Pep Total Protein 6.2 L Albumin 2.6 L Arterial Blood Glucose Urine WBC (Auto) Urine Creatinine 01/06/20 01/07/20 01/07/20 17:54 00:06 04:10 WBC RBC 3.42 L Hgb 8.9 L Hct 29.0 L MCHC 31 L RDW 17.1 H MCV MCH 26 L Lymph % (Auto) [place] % (Auto) 8.4 H [place] # Eos # Lymph # (Auto) [place] # (Auto) Eos # (Auto) Seg Neutrophils % Seg Neuts % (Manual) Baso # (Auto) Lymphocytes % (Manual) Monocytes % (Manual) Eosinophils % (Manual) Basophils % (Manual) Seg Neutrophils # Seg Neutrophils # Man Lymphocytes # (Manual) Monocytes # (Manual) Eosinophils # (Manual) Nucleated RBC % Basophils # (Manual) PT INR APTT Heparin Anti-Xa Level ABG pH POC ABG pO2 ABG pO2 ABG HCO3 ABG O2 Saturation ABG Base Excess POC ABG pCO2 ABG Hemoglobin ABG Oxyhemoglobin ABG Glucose Oxyhemoglobin Sodium Potassium Chloride Carbon Dioxide BUN Creatinine Glucose POC Glucose 112 H 126 H Lactic Acid Calcium Phosphorus Magnesium AST ALT Lactate Dehydrogenase Total Bilirubin Direct Bilirubin CK-MB (CK-2) C-Reactive Protein NT-Pro-B Natriuret Pep Total Protein Albumin Arterial Blood Glucose Urine WBC (Auto) Urine Creatinine 01/07/20 01/07/20 01/07/20 04:10 05:59 12:27 WBC RBC Hgb Hct MCHC RDW MCV MCH Lymph % (Auto) [place] % (Auto) [place] # Eos # Lymph # (Auto) [place] # (Auto) Eos # (Auto) Seg Neutrophils % Seg Neuts % (Manual) Baso # (Auto) Lymphocytes % (Manual) Monocytes % (Manual) Eosinophils % (Manual) Basophils % (Manual) Seg Neutrophils # Seg Neutrophils # Man Lymphocytes # (Manual) Monocytes # (Manual) Eosinophils # (Manual) Nucleated RBC % Basophils # (Manual) PT INR APTT Heparin Anti-Xa Level ABG pH POC ABG pO2 ABG pO2 ABG HCO3 ABG O2 Saturation ABG Base Excess POC ABG pCO2 ABG Hemoglobin ABG Oxyhemoglobin ABG Glucose Oxyhemoglobin Sodium 153 H Potassium 3.5 L Chloride Carbon Dioxide 34 H BUN Creatinine 0.6 L Glucose 121 H POC Glucose 121 H 126 H Lactic Acid Calcium Phosphorus Magnesium AST ALT Lactate Dehydrogenase Total Bilirubin Direct Bilirubin CK-MB (CK-2) C-Reactive Protein NT-Pro-B Natriuret Pep Total Protein 5.9 L Albumin 2.4 L Arterial Blood Glucose Urine WBC (Auto) Urine Creatinine 01/07/20 01/08/20 01/08/20 18:12 00:03 05:41 WBC RBC Hgb Hct MCHC RDW MCV MCH Lymph % (Auto) [place] % (Auto) [place] # Eos # Lymph # (Auto) [place] # (Auto) Eos # (Auto) Seg Neutrophils % Seg Neuts % (Manual) Baso # (Auto) Lymphocytes % (Manual) Monocytes % (Manual) Eosinophils % (Manual) Basophils % (Manual) Seg Neutrophils # Seg Neutrophils # Man Lymphocytes # (Manual) Monocytes # (Manual) Eosinophils # (Manual) Nucleated RBC % Basophils # (Manual) PT INR APTT Heparin Anti-Xa Level ABG pH POC ABG pO2 ABG pO2 ABG HCO3 ABG O2 Saturation ABG Base Excess POC ABG pCO2 ABG Hemoglobin ABG Oxyhemoglobin ABG Glucose Oxyhemoglobin Sodium Potassium Chloride Carbon Dioxide BUN Creatinine Glucose POC Glucose 124 H 130 H 138 H Lactic Acid Calcium Phosphorus Magnesium AST ALT Lactate Dehydrogenase Total Bilirubin Direct Bilirubin CK-MB (CK-2) C-Reactive Protein NT-Pro-B Natriuret Pep Total Protein Albumin Arterial Blood Glucose Urine WBC (Auto) Urine Creatinine 01/08/20 01/08/20 01/08/20 09:28 11:42 18:21 WBC RBC Hgb Hct MCHC RDW MCV MCH Lymph % (Auto) [place] % (Auto) [place] # Eos # Lymph # (Auto) [place] # (Auto) Eos # (Auto) Seg Neutrophils % Seg Neuts % (Manual) Baso # (Auto) Lymphocytes % (Manual) Monocytes % (Manual) Eosinophils % (Manual) Basophils % (Manual) Seg Neutrophils # Seg Neutrophils # Man Lymphocytes # (Manual) Monocytes # (Manual) Eosinophils # (Manual) Nucleated RBC % Basophils # (Manual) PT INR APTT Heparin Anti-Xa Level ABG pH POC ABG pO2 ABG pO2 ABG HCO3 ABG O2 Saturation ABG Base Excess POC ABG pCO2 ABG Hemoglobin ABG Oxyhemoglobin ABG Glucose Oxyhemoglobin Sodium Potassium Chloride Carbon Dioxide BUN Creatinine Glucose POC Glucose 181 H 150 H 129 H Lactic Acid Calcium Phosphorus Magnesium AST ALT Lactate Dehydrogenase Total Bilirubin Direct Bilirubin CK-MB (CK-2) C-Reactive Protein NT-Pro-B Natriuret Pep Total Protein Albumin Arterial Blood Glucose Urine WBC (Auto) Urine Creatinine 01/08/20 01/08/20 01/09/20 19:25 23:55 04:11 WBC RBC 3.43 L Hgb 8.9 L Hct 28.7 L MCHC 31 L RDW 17.6 H MCV MCH 26 L Lymph % (Auto) [place] % (Auto) 8.6 H [place] # Eos # Lymph # (Auto) [place] # (Auto) Eos # (Auto) Seg Neutrophils % Seg Neuts % (Manual) Baso # (Auto) Lymphocytes % (Manual) Monocytes % (Manual) Eosinophils % (Manual) Basophils % (Manual) Seg Neutrophils # Seg Neutrophils # Man Lymphocytes # (Manual) Monocytes # (Manual) Eosinophils # (Manual) Nucleated RBC % Basophils # (Manual) PT INR APTT Heparin Anti-Xa Level ABG pH POC ABG pO2 ABG pO2 ABG HCO3 ABG O2 Saturation ABG Base Excess POC ABG pCO2 ABG Hemoglobin ABG Oxyhemoglobin ABG Glucose Oxyhemoglobin Sodium Potassium Chloride Carbon Dioxide BUN Creatinine 0.7 L Glucose 117 H POC Glucose 132 H Lactic Acid Calcium Phosphorus Magnesium AST ALT Lactate Dehydrogenase Total Bilirubin Direct Bilirubin CK-MB (CK-2) C-Reactive Protein NT-Pro-B Natriuret Pep Total Protein Albumin Arterial Blood Glucose Urine WBC (Auto) Urine Creatinine 01/09/20 01/09/20 01/09/20 04:11 05:38 22:58 WBC RBC Hgb Hct MCHC RDW MCV MCH Lymph % (Auto) [place] % (Auto) [place] # Eos # Lymph # (Auto) [place] # (Auto) Eos # (Auto) Seg Neutrophils % Seg Neuts % (Manual) Baso # (Auto) Lymphocytes % (Manual) Monocytes % (Manual) Eosinophils % (Manual) Basophils % (Manual) Seg Neutrophils # Seg Neutrophils # Man Lymphocytes # (Manual) Monocytes # (Manual) Eosinophils # (Manual) Nucleated RBC % Basophils # (Manual) PT INR APTT Heparin Anti-Xa Level ABG pH POC ABG pO2 ABG pO2 ABG HCO3 ABG O2 Saturation ABG Base Excess POC ABG pCO2 ABG Hemoglobin ABG Oxyhemoglobin ABG Glucose Oxyhemoglobin Sodium 147 H Potassium 3.3 L D Chloride Carbon Dioxide 32 H BUN Creatinine 0.6 L Glucose 106 H POC Glucose 107 H 113 H Lactic Acid Calcium Phosphorus Magnesium AST ALT Lactate Dehydrogenase Total Bilirubin Direct Bilirubin CK-MB (CK-2) C-Reactive Protein NT-Pro-B Natriuret Pep Total Protein Albumin Arterial Blood Glucose Urine WBC (Auto) Urine Creatinine 01/10/20 01/10/20 01/10/20 04:05 11:36 17:54 WBC RBC Hgb Hct MCHC RDW MCV MCH Lymph % (Auto) [place] % (Auto) [place] # Eos # Lymph # (Auto) [place] # (Auto) Eos # (Auto) Seg Neutrophils % Seg Neuts % (Manual) Baso # (Auto) Lymphocytes % (Manual) Monocytes % (Manual) Eosinophils % (Manual) Basophils % (Manual) Seg Neutrophils # Seg Neutrophils # Man Lymphocytes # (Manual) Monocytes # (Manual) Eosinophils # (Manual) Nucleated RBC % Basophils # (Manual) PT INR APTT Heparin Anti-Xa Level ABG pH POC ABG pO2 ABG pO2 ABG HCO3 ABG O2 Saturation ABG Base Excess POC ABG pCO2 ABG Hemoglobin ABG Oxyhemoglobin ABG Glucose Oxyhemoglobin Sodium Potassium Chloride Carbon Dioxide BUN Creatinine 0.7 L Glucose 110 H POC Glucose 129 H 117 H Lactic Acid Calcium Phosphorus Magnesium AST ALT Lactate Dehydrogenase Total Bilirubin Direct Bilirubin CK-MB (CK-2) C-Reactive Protein NT-Pro-B Natriuret Pep Total Protein Albumin Arterial Blood Glucose Urine WBC (Auto) Urine Creatinine 01/10/20 01/11/20 01/11/20 23:52 03:19 12:09 WBC RBC Hgb Hct MCHC RDW MCV MCH Lymph % (Auto) [place] % (Auto) [place] # Eos # Lymph # (Auto) [place] # (Auto) Eos # (Auto) Seg Neutrophils % Seg Neuts % (Manual) Baso # (Auto) Lymphocytes % (Manual) Monocytes % (Manual) Eosinophils % (Manual) Basophils % (Manual) Seg Neutrophils # Seg Neutrophils # Man Lymphocytes # (Manual) Monocytes # (Manual) Eosinophils # (Manual) Nucleated RBC % Basophils # (Manual) PT INR APTT Heparin Anti-Xa Level ABG pH POC ABG pO2 ABG pO2 ABG HCO3 ABG O2 Saturation ABG Base Excess POC ABG pCO2 ABG Hemoglobin ABG Oxyhemoglobin ABG Glucose Oxyhemoglobin Sodium Potassium Chloride Carbon Dioxide BUN Creatinine Glucose POC Glucose 117 H 136 H 115 H Lactic Acid Calcium Phosphorus Magnesium AST ALT Lactate Dehydrogenase Total Bilirubin Direct Bilirubin CK-MB (CK-2) C-Reactive Protein NT-Pro-B Natriuret Pep Total Protein Albumin Arterial Blood Glucose Urine WBC (Auto) Urine Creatinine 01/11/20 01/11/20 01/12/20 18:27 23:28 00:23 WBC RBC Hgb 9.8 L Hct 31.6 L MCHC 31 L RDW 17.8 H MCV 83 L MCH 26 L Lymph % (Auto) [place] % (Auto) 8.0 H [place] # Eos # Lymph # (Auto) [place] # (Auto) Eos # (Auto) Seg Neutrophils % Seg Neuts % (Manual) Baso # (Auto) Lymphocytes % (Manual) Monocytes % (Manual) Eosinophils % (Manual) Basophils % (Manual) Seg Neutrophils # Seg Neutrophils # Man Lymphocytes # (Manual) Monocytes # (Manual) Eosinophils # (Manual) Nucleated RBC % Basophils # (Manual) PT INR APTT Heparin Anti-Xa Level ABG pH POC ABG pO2 ABG pO2 ABG HCO3 ABG O2 Saturation ABG Base Excess POC ABG pCO2 ABG Hemoglobin ABG Oxyhemoglobin ABG Glucose Oxyhemoglobin Sodium Potassium Chloride Carbon Dioxide BUN Creatinine Glucose POC Glucose 118 H 122 H Lactic Acid Calcium Phosphorus Magnesium AST ALT Lactate Dehydrogenase Total Bilirubin Direct Bilirubin CK-MB (CK-2) C-Reactive Protein NT-Pro-B Natriuret Pep Total Protein Albumin Arterial Blood Glucose Urine WBC (Auto) Urine Creatinine 01/12/20 01/12/20 01/12/20 00:23 04:18 04:18 WBC RBC Hgb 9.6 L Hct 30.9 L MCHC 31 L RDW 17.3 H MCV 81 L MCH 25 L Lymph % (Auto) [place] % (Auto) [place] # Eos # Lymph # (Auto) [place] # (Auto) Eos # (Auto) Seg Neutrophils % Seg Neuts % (Manual) Baso # (Auto) Lymphocytes % (Manual) Monocytes % (Manual) Eosinophils % (Manual) Basophils % (Manual) Seg Neutrophils # Seg Neutrophils # Man Lymphocytes # (Manual) Monocytes # (Manual) Eosinophils # (Manual) Nucleated RBC % Basophils # (Manual) PT INR APTT Heparin Anti-Xa Level ABG pH POC ABG pO2 ABG pO2 ABG HCO3 ABG O2 Saturation ABG Base Excess POC ABG pCO2 ABG Hemoglobin ABG Oxyhemoglobin ABG Glucose Oxyhemoglobin Sodium Potassium Chloride Carbon Dioxide BUN Creatinine 0.7 L 0.7 L Glucose 111 H 108 H POC Glucose Lactic Acid Calcium Phosphorus Magnesium AST ALT Lactate Dehydrogenase Total Bilirubin Direct Bilirubin CK-MB (CK-2) C-Reactive Protein NT-Pro-B Natriuret Pep Total Protein Albumin 2.6 L Arterial Blood Glucose Urine WBC (Auto) Urine Creatinine 01/12/20 01/12/20 01/12/20 06:03 12:27 13:58 WBC RBC Hgb Hct MCHC RDW MCV MCH Lymph % (Auto) [place] % (Auto) [place] # Eos # Lymph # (Auto) [place] # (Auto) Eos # (Auto) Seg Neutrophils % Seg Neuts % (Manual) Baso # (Auto) Lymphocytes % (Manual) Monocytes % (Manual) Eosinophils % (Manual) Basophils % (Manual) Seg Neutrophils # Seg Neutrophils # Man Lymphocytes # (Manual) Monocytes # (Manual) Eosinophils # (Manual) Nucleated RBC % Basophils # (Manual) PT INR APTT Heparin Anti-Xa Level ABG pH 7.453 H POC ABG pO2 76.6 L ABG pO2 ABG HCO3 ABG O2 Saturation ABG Base Excess POC ABG pCO2 ABG Hemoglobin 10.3 L ABG Oxyhemoglobin ABG Glucose 99 H Oxyhemoglobin Sodium Potassium Chloride Carbon Dioxide BUN Creatinine Glucose POC Glucose 128 H 121 H Lactic Acid Calcium Phosphorus Magnesium AST ALT Lactate Dehydrogenase Total Bilirubin Direct Bilirubin CK-MB (CK-2) C-Reactive Protein NT-Pro-B Natriuret Pep Total Protein Albumin Arterial Blood Glucose 99 H Urine WBC (Auto) Urine Creatinine 01/12/20 01/13/20 01/13/20 18:24 12:01 17:46 WBC RBC Hgb Hct MCHC RDW MCV MCH Lymph % (Auto) [place] % (Auto) [place] # Eos # Lymph # (Auto) [place] # (Auto) Eos # (Auto) Seg Neutrophils % Seg Neuts % (Manual) Baso # (Auto) Lymphocytes % (Manual) Monocytes % (Manual) Eosinophils % (Manual) Basophils % (Manual) Seg Neutrophils # Seg Neutrophils # Man Lymphocytes # (Manual) Monocytes # (Manual) Eosinophils # (Manual) Nucleated RBC % Basophils # (Manual) PT INR APTT Heparin Anti-Xa Level ABG pH POC ABG pO2 ABG pO2 ABG HCO3 ABG O2 Saturation ABG Base Excess POC ABG pCO2 ABG Hemoglobin ABG Oxyhemoglobin ABG Glucose Oxyhemoglobin Sodium Potassium Chloride Carbon Dioxide BUN Creatinine Glucose POC Glucose 119 H 107 H 124 H Lactic Acid Calcium Phosphorus Magnesium AST ALT Lactate Dehydrogenase Total Bilirubin Direct Bilirubin CK-MB (CK-2) C-Reactive Protein NT-Pro-B Natriuret Pep Total Protein Albumin Arterial Blood Glucose Urine WBC (Auto) Urine Creatinine 01/13/20 01/14/20 01/14/20 20:40 00:10 05:33 WBC RBC Hgb Hct MCHC RDW MCV MCH Lymph % (Auto) [place] % (Auto) [place] # Eos # Lymph # (Auto) [place] # (Auto) Eos # (Auto) Seg Neutrophils % Seg Neuts % (Manual) Baso # (Auto) Lymphocytes % (Manual) Monocytes % (Manual) Eosinophils % (Manual) Basophils % (Manual) Seg Neutrophils # Seg Neutrophils # Man Lymphocytes # (Manual) Monocytes # (Manual) Eosinophils # (Manual) Nucleated RBC % Basophils # (Manual) PT INR APTT Heparin Anti-Xa Level ABG pH POC ABG pO2 ABG pO2 65.3 L ABG HCO3 31.8 H ABG O2 Saturation 93.5 L ABG Base Excess 6.7 H POC ABG pCO2 ABG Hemoglobin 13.3 L ABG Oxyhemoglobin ABG Glucose Oxyhemoglobin 90.9 L Sodium Potassium Chloride Carbon Dioxide BUN Creatinine Glucose POC Glucose 111 H 111 H Lactic Acid Calcium Phosphorus Magnesium AST ALT Lactate Dehydrogenase Total Bilirubin Direct Bilirubin CK-MB (CK-2) C-Reactive Protein NT-Pro-B Natriuret Pep Total Protein Albumin Arterial Blood Glucose Urine WBC (Auto) Urine Creatinine 01/14/20 01/14/20 01/14/20 12:10 16:14 16:14 WBC RBC Hgb 10.6 L Hct 34.2 L MCHC 31 L RDW 18.3 H MCV 83 L MCH 26 L Lymph % (Auto) [place] % (Auto) 7.4 H [place] # Eos # Lymph # (Auto) [place] # (Auto) Eos # (Auto) Seg Neutrophils % 71.9 H Seg Neuts % (Manual) Baso # (Auto) Lymphocytes % (Manual) Monocytes % (Manual) Eosinophils % (Manual) Basophils % (Manual) Seg Neutrophils # Seg Neutrophils # Man Lymphocytes # (Manual) Monocytes # (Manual) Eosinophils # (Manual) Nucleated RBC % Basophils # (Manual) PT INR APTT Heparin Anti-Xa Level ABG pH POC ABG pO2 ABG pO2 ABG HCO3 ABG O2 Saturation ABG Base Excess POC ABG pCO2 ABG Hemoglobin ABG Oxyhemoglobin ABG Glucose Oxyhemoglobin Sodium Potassium Chloride Carbon Dioxide 31 H BUN Creatinine 0.6 L Glucose 131 H POC Glucose 139 H Lactic Acid Calcium Phosphorus Magnesium AST ALT Lactate Dehydrogenase Total Bilirubin Direct Bilirubin CK-MB (CK-2) C-Reactive Protein NT-Pro-B Natriuret Pep Total Protein Albumin Arterial Blood Glucose Urine WBC (Auto) Urine Creatinine 01/14/20 01/15/20 01/15/20 18:05 00:52 05:35 WBC RBC Hgb Hct MCHC RDW MCV MCH Lymph % (Auto) [place] % (Auto) [place] # Eos # Lymph # (Auto) [place] # (Auto) Eos # (Auto) Seg Neutrophils % Seg Neuts % (Manual) Baso # (Auto) Lymphocytes % (Manual) Monocytes % (Manual) Eosinophils % (Manual) Basophils % (Manual) Seg Neutrophils # Seg Neutrophils # Man Lymphocytes # (Manual) Monocytes # (Manual) Eosinophils # (Manual) Nucleated RBC % Basophils # (Manual) PT INR APTT Heparin Anti-Xa Level ABG pH POC ABG pO2 ABG pO2 ABG HCO3 ABG O2 Saturation ABG Base Excess POC ABG pCO2 ABG Hemoglobin ABG Oxyhemoglobin ABG Glucose Oxyhemoglobin Sodium Potassium Chloride Carbon Dioxide BUN Creatinine Glucose POC Glucose 147 H 140 H 159 H Lactic Acid Calcium Phosphorus Magnesium AST ALT Lactate Dehydrogenase Total Bilirubin Direct Bilirubin CK-MB (CK-2) C-Reactive Protein NT-Pro-B Natriuret Pep Total Protein Albumin Arterial Blood Glucose Urine WBC (Auto) Urine Creatinine 01/15/20 01/15/20 01/16/20 12:52 17:43 00:32 WBC RBC Hgb Hct MCHC RDW MCV MCH Lymph % (Auto) [place] % (Auto) [place] # Eos # Lymph # (Auto) [place] # (Auto) Eos # (Auto) Seg Neutrophils % Seg Neuts % (Manual) Baso # (Auto) Lymphocytes % (Manual) Monocytes % (Manual) Eosinophils % (Manual) Basophils % (Manual) Seg Neutrophils # Seg Neutrophils # Man Lymphocytes # (Manual) Monocytes # (Manual) Eosinophils # (Manual) Nucleated RBC % Basophils # (Manual) PT INR APTT Heparin Anti-Xa Level ABG pH POC ABG pO2 ABG pO2 ABG HCO3 ABG O2 Saturation ABG Base Excess POC ABG pCO2 ABG Hemoglobin ABG Oxyhemoglobin ABG Glucose Oxyhemoglobin Sodium Potassium Chloride Carbon Dioxide BUN Creatinine Glucose POC Glucose 164 H 167 H 153 H Lactic Acid Calcium Phosphorus Magnesium AST ALT Lactate Dehydrogenase Total Bilirubin Direct Bilirubin CK-MB (CK-2) C-Reactive Protein NT-Pro-B Natriuret Pep Total Protein Albumin Arterial Blood Glucose Urine WBC (Auto) Urine Creatinine 01/16/20 01/16/20 01/17/20 05:46 11:48 06:38 WBC RBC Hgb Hct MCHC RDW MCV MCH Lymph % (Auto) [place] % (Auto) [place] # Eos # Lymph # (Auto) [place] # (Auto) Eos # (Auto) Seg Neutrophils % Seg Neuts % (Manual) Baso # (Auto) Lymphocytes % (Manual) Monocytes % (Manual) Eosinophils % (Manual) Basophils % (Manual) Seg Neutrophils # Seg Neutrophils # Man Lymphocytes # (Manual) Monocytes # (Manual) Eosinophils # (Manual) Nucleated RBC % Basophils # (Manual) PT INR APTT Heparin Anti-Xa Level ABG pH POC ABG pO2 ABG pO2 ABG HCO3 ABG O2 Saturation ABG Base Excess POC ABG pCO2 ABG Hemoglobin ABG Oxyhemoglobin ABG Glucose Oxyhemoglobin Sodium Potassium Chloride Carbon Dioxide BUN Creatinine Glucose POC Glucose 163 H 155 H 116 H Lactic Acid Calcium Phosphorus Magnesium AST ALT Lactate Dehydrogenase Total Bilirubin Direct Bilirubin CK-MB (CK-2) C-Reactive Protein NT-Pro-B Natriuret Pep Total Protein Albumin Arterial Blood Glucose Urine WBC (Auto) Urine Creatinine 01/17/20 01/17/20 01/18/20 11:36 17:43 00:12 WBC RBC Hgb Hct MCHC RDW MCV MCH Lymph % (Auto) [place] % (Auto) [place] # Eos # Lymph # (Auto) [place] # (Auto) Eos # (Auto) Seg Neutrophils % Seg Neuts % (Manual) Baso # (Auto) Lymphocytes % (Manual) Monocytes % (Manual) Eosinophils % (Manual) Basophils % (Manual) Seg Neutrophils # Seg Neutrophils # Man Lymphocytes # (Manual) Monocytes # (Manual) Eosinophils # (Manual) Nucleated RBC % Basophils # (Manual) PT INR APTT Heparin Anti-Xa Level ABG pH POC ABG pO2 ABG pO2 ABG HCO3 ABG O2 Saturation ABG Base Excess POC ABG pCO2 ABG Hemoglobin ABG Oxyhemoglobin ABG Glucose Oxyhemoglobin Sodium Potassium Chloride Carbon Dioxide BUN Creatinine Glucose POC Glucose 110 H 134 H 108 H Lactic Acid Calcium Phosphorus Magnesium AST ALT Lactate Dehydrogenase Total Bilirubin Direct Bilirubin CK-MB (CK-2) C-Reactive Protein NT-Pro-B Natriuret Pep Total Protein Albumin Arterial Blood Glucose Urine WBC (Auto) Urine Creatinine 01/18/20 01/18/20 01/18/20 05:37 06:46 06:46 WBC RBC Hgb 10.1 L Hct 32.2 L MCHC 31 L RDW 18.1 H MCV 81 L MCH 25 L Lymph % (Auto) [place] % (Auto) [place] # Eos # Lymph # (Auto) [place] # (Auto) Eos # (Auto) Seg Neutrophils % 71.9 H Seg Neuts % (Manual) Baso # (Auto) Lymphocytes % (Manual) Monocytes % (Manual) Eosinophils % (Manual) Basophils % (Manual) Seg Neutrophils # Seg Neutrophils # Man Lymphocytes # (Manual) Monocytes # (Manual) Eosinophils # (Manual) Nucleated RBC % Basophils # (Manual) PT INR APTT Heparin Anti-Xa Level ABG pH POC ABG pO2 ABG pO2 ABG HCO3 ABG O2 Saturation ABG Base Excess POC ABG pCO2 ABG Hemoglobin ABG Oxyhemoglobin ABG Glucose Oxyhemoglobin Sodium Potassium Chloride Carbon Dioxide BUN Creatinine 0.7 L Glucose 155 H POC Glucose 168 H Lactic Acid Calcium Phosphorus Magnesium AST ALT Lactate Dehydrogenase Total Bilirubin Direct Bilirubin CK-MB (CK-2) C-Reactive Protein NT-Pro-B Natriuret Pep Total Protein Albumin Arterial Blood Glucose Urine WBC (Auto) Urine Creatinine 01/18/20 01/18/20 01/18/20 12:05 17:14 23:28 WBC RBC Hgb Hct MCHC RDW MCV MCH Lymph % (Auto) [place] % (Auto) [place] # Eos # Lymph # (Auto) [place] # (Auto) Eos # (Auto) Seg Neutrophils % Seg Neuts % (Manual) Baso # (Auto) Lymphocytes % (Manual) Monocytes % (Manual) Eosinophils % (Manual) Basophils % (Manual) Seg Neutrophils # Seg Neutrophils # Man Lymphocytes # (Manual) Monocytes # (Manual) Eosinophils # (Manual) Nucleated RBC % Basophils # (Manual) PT INR APTT Heparin Anti-Xa Level ABG pH POC ABG pO2 ABG pO2 ABG HCO3 ABG O2 Saturation ABG Base Excess POC ABG pCO2 ABG Hemoglobin ABG Oxyhemoglobin ABG Glucose Oxyhemoglobin Sodium Potassium Chloride Carbon Dioxide BUN Creatinine Glucose POC Glucose 128 H 126 H 128 H Lactic Acid Calcium Phosphorus Magnesium AST ALT Lactate Dehydrogenase Total Bilirubin Direct Bilirubin CK-MB (CK-2) C-Reactive Protein NT-Pro-B Natriuret Pep Total Protein Albumin Arterial Blood Glucose Urine WBC (Auto) Urine Creatinine 01/19/20 01/19/20 01/19/20 05:39 12:33 17:36 WBC RBC Hgb Hct MCHC RDW MCV MCH Lymph % (Auto) [place] % (Auto) [place] # Eos # Lymph # (Auto) [place] # (Auto) Eos # (Auto) Seg Neutrophils % Seg Neuts % (Manual) Baso # (Auto) Lymphocytes % (Manual) Monocytes % (Manual) Eosinophils % (Manual) Basophils % (Manual) Seg Neutrophils # Seg Neutrophils # Man Lymphocytes # (Manual) Monocytes # (Manual) Eosinophils # (Manual) Nucleated RBC % Basophils # (Manual) PT INR APTT Heparin Anti-Xa Level ABG pH POC ABG pO2 ABG pO2 ABG HCO3 ABG O2 Saturation ABG Base Excess POC ABG pCO2 ABG Hemoglobin ABG Oxyhemoglobin ABG Glucose Oxyhemoglobin Sodium Potassium Chloride Carbon Dioxide BUN Creatinine Glucose POC Glucose 164 H 171 H 152 H Lactic Acid Calcium Phosphorus Magnesium AST ALT Lactate Dehydrogenase Total Bilirubin Direct Bilirubin CK-MB (CK-2) C-Reactive Protein NT-Pro-B Natriuret Pep Total Protein Albumin Arterial Blood Glucose Urine WBC (Auto) Urine Creatinine 01/20/20 01/20/20 01/20/20 00:12 05:20 05:35 WBC RBC Hgb 9.2 L Hct 29.4 L MCHC 31 L RDW 17.9 H MCV 81 L MCH 25 L Lymph % (Auto) [place] % (Auto) [place] # Eos # Lymph # (Auto) [place] # (Auto) Eos # (Auto) Seg Neutrophils % Seg Neuts % (Manual) Baso # (Auto) Lymphocytes % (Manual) Monocytes % (Manual) Eosinophils % (Manual) Basophils % (Manual) Seg Neutrophils # Seg Neutrophils # Man Lymphocytes # (Manual) Monocytes # (Manual) Eosinophils # (Manual) Nucleated RBC % Basophils # (Manual) PT INR APTT Heparin Anti-Xa Level ABG pH POC ABG pO2 ABG pO2 ABG HCO3 ABG O2 Saturation ABG Base Excess POC ABG pCO2 ABG Hemoglobin ABG Oxyhemoglobin ABG Glucose Oxyhemoglobin Sodium Potassium Chloride Carbon Dioxide BUN Creatinine Glucose POC Glucose 120 H 136 H Lactic Acid Calcium Phosphorus Magnesium AST ALT Lactate Dehydrogenase Total Bilirubin Direct Bilirubin CK-MB (CK-2) C-Reactive Protein NT-Pro-B Natriuret Pep Total Protein Albumin Arterial Blood Glucose Urine WBC (Auto) Urine Creatinine 01/20/20 01/20/20 01/20/20 05:40 11:58 14:55 WBC RBC Hgb 9.0 L Hct 28.3 L MCHC RDW MCV MCH Lymph % (Auto) [place] % (Auto) [place] # Eos # Lymph # (Auto) [place] # (Auto) Eos # (Auto) Seg Neutrophils % Seg Neuts % (Manual) Baso # (Auto) Lymphocytes % (Manual) Monocytes % (Manual) Eosinophils % (Manual) Basophils % (Manual) Seg Neutrophils # Seg Neutrophils # Man Lymphocytes # (Manual) Monocytes # (Manual) Eosinophils # (Manual) Nucleated RBC % Basophils # (Manual) PT INR APTT Heparin Anti-Xa Level ABG pH POC ABG pO2 ABG pO2 ABG HCO3 ABG O2 Saturation ABG Base Excess POC ABG pCO2 ABG Hemoglobin ABG Oxyhemoglobin ABG Glucose Oxyhemoglobin Sodium Potassium Chloride Carbon Dioxide 32 H BUN 22 H Creatinine 0.7 L Glucose 128 H POC Glucose 152 H Lactic Acid Calcium Phosphorus Magnesium AST ALT Lactate Dehydrogenase Total Bilirubin Direct Bilirubin CK-MB (CK-2) C-Reactive Protein NT-Pro-B Natriuret Pep Total Protein Albumin Arterial Blood Glucose Urine WBC (Auto) Urine Creatinine 01/20/20 01/20/20 01/20/20 14:55 18:14 21:35 WBC RBC Hgb Hct MCHC RDW MCV MCH Lymph % (Auto) [place] % (Auto) [place] # Eos # Lymph # (Auto) [place] # (Auto) Eos # (Auto) Seg Neutrophils % Seg Neuts % (Manual) Baso # (Auto) Lymphocytes % (Manual) Monocytes % (Manual) Eosinophils % (Manual) Basophils % (Manual) Seg Neutrophils # Seg Neutrophils # Man Lymphocytes # (Manual) Monocytes # (Manual) Eosinophils # (Manual) Nucleated RBC % Basophils # (Manual) PT 20.4 H INR 1.72 H APTT 40.6 H Heparin Anti-Xa Level > 2.00 H ABG pH POC ABG pO2 ABG pO2 ABG HCO3 ABG O2 Saturation ABG Base Excess POC ABG pCO2 ABG Hemoglobin ABG Oxyhemoglobin ABG Glucose Oxyhemoglobin Sodium Potassium Chloride Carbon Dioxide BUN Creatinine Glucose POC Glucose 150 H Lactic Acid Calcium Phosphorus Magnesium AST ALT Lactate Dehydrogenase Total Bilirubin Direct Bilirubin CK-MB (CK-2) C-Reactive Protein NT-Pro-B Natriuret Pep Total Protein Albumin Arterial Blood Glucose Urine WBC (Auto) Urine Creatinine 01/21/20 01/21/20 01/21/20 00:30 05:47 05:59 WBC RBC Hgb Hct MCHC RDW MCV MCH Lymph % (Auto) [place] % (Auto) [place] # Eos # Lymph # (Auto) [place] # (Auto) Eos # (Auto) Seg Neutrophils % Seg Neuts % (Manual) Baso # (Auto) Lymphocytes % (Manual) Monocytes % (Manual) Eosinophils % (Manual) Basophils % (Manual) Seg Neutrophils # Seg Neutrophils # Man Lymphocytes # (Manual) Monocytes # (Manual) Eosinophils # (Manual) Nucleated RBC % Basophils # (Manual) PT INR APTT Heparin Anti-Xa Level 1.93 H ABG pH POC ABG pO2 ABG pO2 ABG HCO3 ABG O2 Saturation ABG Base Excess POC ABG pCO2 ABG Hemoglobin ABG Oxyhemoglobin ABG Glucose Oxyhemoglobin Sodium Potassium Chloride Carbon Dioxide BUN Creatinine Glucose POC Glucose 126 H 148 H Lactic Acid Calcium Phosphorus Magnesium AST ALT Lactate Dehydrogenase Total Bilirubin Direct Bilirubin CK-MB (CK-2) C-Reactive Protein NT-Pro-B Natriuret Pep Total Protein Albumin Arterial Blood Glucose Urine WBC (Auto) Urine Creatinine 01/21/20 01/21/20 01/21/20 12:32 18:20 23:54 WBC RBC Hgb Hct MCHC RDW MCV MCH Lymph % (Auto) [place] % (Auto) [place] # Eos # Lymph # (Auto) [place] # (Auto) Eos # (Auto) Seg Neutrophils % Seg Neuts % (Manual) Baso # (Auto) Lymphocytes % (Manual) Monocytes % (Manual) Eosinophils % (Manual) Basophils % (Manual) Seg Neutrophils # Seg Neutrophils # Man Lymphocytes # (Manual) Monocytes # (Manual) Eosinophils # (Manual) Nucleated RBC % Basophils # (Manual) PT INR APTT Heparin Anti-Xa Level 1.28 H ABG pH POC ABG pO2 ABG pO2 ABG HCO3 ABG O2 Saturation ABG Base Excess POC ABG pCO2 ABG Hemoglobin ABG Oxyhemoglobin ABG Glucose Oxyhemoglobin Sodium Potassium Chloride Carbon Dioxide BUN Creatinine Glucose POC Glucose 112 H 146 H Lactic Acid Calcium Phosphorus Magnesium AST ALT Lactate Dehydrogenase Total Bilirubin Direct Bilirubin CK-MB (CK-2) C-Reactive Protein NT-Pro-B Natriuret Pep Total Protein Albumin Arterial Blood Glucose Urine WBC (Auto) Urine Creatinine 01/22/20 01/22/20 01/22/20 04:45 04:45 05:48 WBC RBC Hgb 9.3 L Hct 29.0 L MCHC RDW MCV MCH Lymph % (Auto) [place] % (Auto) [place] # Eos # Lymph # (Auto) [place] # (Auto) Eos # (Auto) Seg Neutrophils % Seg Neuts % (Manual) Baso # (Auto) Lymphocytes % (Manual) Monocytes % (Manual) Eosinophils % (Manual) Basophils % (Manual) Seg Neutrophils # Seg Neutrophils # Man Lymphocytes # (Manual) Monocytes # (Manual) Eosinophils # (Manual) Nucleated RBC % Basophils # (Manual) PT INR APTT Heparin Anti-Xa Level 1.34 H ABG pH POC ABG pO2 ABG pO2 ABG HCO3 ABG O2 Saturation ABG Base Excess POC ABG pCO2 ABG Hemoglobin ABG Oxyhemoglobin ABG Glucose Oxyhemoglobin Sodium Potassium Chloride Carbon Dioxide BUN Creatinine Glucose POC Glucose 142 H Lactic Acid Calcium Phosphorus Magnesium AST ALT Lactate Dehydrogenase Total Bilirubin Direct Bilirubin CK-MB (CK-2) C-Reactive Protein NT-Pro-B Natriuret Pep Total Protein Albumin Arterial Blood Glucose Urine WBC (Auto) Urine Creatinine 01/22/20 01/22/20 01/22/20 08:09 08:22 09:58 WBC RBC Hgb Hct MCHC RDW MCV MCH Lymph % (Auto) [place] % (Auto) [place] # Eos # Lymph # (Auto) [place] # (Auto) Eos # (Auto) Seg Neutrophils % Seg Neuts % (Manual) Baso # (Auto) Lymphocytes % (Manual) Monocytes % (Manual) Eosinophils % (Manual) Basophils % (Manual) Seg Neutrophils # Seg Neutrophils # Man Lymphocytes # (Manual) Monocytes # (Manual) Eosinophils # (Manual) Nucleated RBC % Basophils # (Manual) PT 16.9 H INR 1.34 H APTT Heparin Anti-Xa Level ABG pH POC ABG pO2 ABG pO2 ABG HCO3 ABG O2 Saturation ABG Base Excess POC ABG pCO2 ABG Hemoglobin ABG Oxyhemoglobin ABG Glucose Oxyhemoglobin Sodium Potassium Chloride 97.8 L Carbon Dioxide BUN 29 H Creatinine Glucose 128 H POC Glucose 131 H Lactic Acid Calcium Phosphorus Magnesium AST ALT Lactate Dehydrogenase Total Bilirubin Direct Bilirubin CK-MB (CK-2) C-Reactive Protein NT-Pro-B Natriuret Pep Total Protein Albumin Arterial Blood Glucose Urine WBC (Auto) Urine Creatinine 01/22/20 01/22/20 01/22/20 12:44 16:13 18:18 WBC RBC Hgb Hct MCHC RDW MCV MCH Lymph % (Auto) [place] % (Auto) [place] # Eos # Lymph # (Auto) [place] # (Auto) Eos # (Auto) Seg Neutrophils % Seg Neuts % (Manual) Baso # (Auto) Lymphocytes % (Manual) Monocytes % (Manual) Eosinophils % (Manual) Basophils % (Manual) Seg Neutrophils # Seg Neutrophils # Man Lymphocytes # (Manual) Monocytes # (Manual) Eosinophils # (Manual) Nucleated RBC % Basophils # (Manual) PT INR APTT Heparin Anti-Xa Level ABG pH POC ABG pO2 ABG pO2 ABG HCO3 ABG O2 Saturation ABG Base Excess POC ABG pCO2 ABG Hemoglobin ABG Oxyhemoglobin ABG Glucose Oxyhemoglobin Sodium Potassium Chloride Carbon Dioxide BUN Creatinine Glucose POC Glucose 156 H 133 H 155 H Lactic Acid Calcium Phosphorus Magnesium AST ALT Lactate Dehydrogenase Total Bilirubin Direct Bilirubin CK-MB (CK-2) C-Reactive Protein NT-Pro-B Natriuret Pep Total Protein Albumin Arterial Blood Glucose Urine WBC (Auto) Urine Creatinine 01/22/20 01/23/20 01/23/20 23:22 05:37 12:59 WBC RBC Hgb Hct MCHC RDW MCV MCH Lymph % (Auto) [place] % (Auto) [place] # Eos # Lymph # (Auto) [place] # (Auto) Eos # (Auto) Seg Neutrophils % Seg Neuts % (Manual) Baso # (Auto) Lymphocytes % (Manual) Monocytes % (Manual) Eosinophils % (Manual) Basophils % (Manual) Seg Neutrophils # Seg Neutrophils # Man Lymphocytes # (Manual) Monocytes # (Manual) Eosinophils # (Manual) Nucleated RBC % Basophils # (Manual) PT INR APTT Heparin Anti-Xa Level ABG pH POC ABG pO2 ABG pO2 ABG HCO3 ABG O2 Saturation ABG Base Excess POC ABG pCO2 ABG Hemoglobin ABG Oxyhemoglobin ABG Glucose Oxyhemoglobin Sodium Potassium Chloride Carbon Dioxide BUN Creatinine Glucose POC Glucose 148 H 163 H 175 H Lactic Acid Calcium Phosphorus Magnesium AST ALT Lactate Dehydrogenase Total Bilirubin Direct Bilirubin CK-MB (CK-2) C-Reactive Protein NT-Pro-B Natriuret Pep Total Protein Albumin Arterial Blood Glucose Urine WBC (Auto) Urine Creatinine 01/23/20 01/23/20 01/24/20 17:28 23:56 04:30 WBC RBC 3.46 L Hgb 8.8 L Hct 27.8 L MCHC RDW 18.2 H MCV 81 L MCH 25 L Lymph % (Auto) [place] % (Auto) 7.8 H [place] # Eos # Lymph # (Auto) [place] # (Auto) Eos # (Auto) Seg Neutrophils % Seg Neuts % (Manual) Baso # (Auto) Lymphocytes % (Manual) Monocytes % (Manual) Eosinophils % (Manual) Basophils % (Manual) Seg Neutrophils # Seg Neutrophils # Man Lymphocytes # (Manual) Monocytes # (Manual) Eosinophils # (Manual) Nucleated RBC % Basophils # (Manual) PT INR APTT Heparin Anti-Xa Level ABG pH POC ABG pO2 ABG pO2 ABG HCO3 ABG O2 Saturation ABG Base Excess POC ABG pCO2 ABG Hemoglobin ABG Oxyhemoglobin ABG Glucose Oxyhemoglobin Sodium Potassium Chloride Carbon Dioxide BUN Creatinine Glucose POC Glucose 165 H 177 H Lactic Acid Calcium Phosphorus Magnesium AST ALT Lactate Dehydrogenase Total Bilirubin Direct Bilirubin CK-MB (CK-2) C-Reactive Protein NT-Pro-B Natriuret Pep Total Protein Albumin Arterial Blood Glucose Urine WBC (Auto) Urine Creatinine 01/24/20 01/24/20 01/24/20 04:30 07:18 12:06 WBC RBC Hgb Hct MCHC RDW MCV MCH Lymph % (Auto) [place] % (Auto) [place] # Eos # Lymph # (Auto) [place] # (Auto) Eos # (Auto) Seg Neutrophils % Seg Neuts % (Manual) Baso # (Auto) Lymphocytes % (Manual) Monocytes % (Manual) Eosinophils % (Manual) Basophils % (Manual) Seg Neutrophils # Seg Neutrophils # Man Lymphocytes # (Manual) Monocytes # (Manual) Eosinophils # (Manual) Nucleated RBC % Basophils # (Manual) PT INR APTT Heparin Anti-Xa Level ABG pH POC ABG pO2 ABG pO2 ABG HCO3 ABG O2 Saturation ABG Base Excess POC ABG pCO2 ABG Hemoglobin ABG Oxyhemoglobin ABG Glucose Oxyhemoglobin Sodium Potassium Chloride 97.9 L Carbon Dioxide BUN 31 H Creatinine Glucose 146 H POC Glucose 151 H 133 H Lactic Acid Calcium Phosphorus Magnesium AST ALT Lactate Dehydrogenase Total Bilirubin Direct Bilirubin CK-MB (CK-2) C-Reactive Protein NT-Pro-B Natriuret Pep Total Protein Albumin Arterial Blood Glucose Urine WBC (Auto) Urine Creatinine 01/24/20 01/25/20 01/25/20 17:36 00:08 04:25 WBC RBC 3.50 L Hgb 8.7 L Hct 27.9 L MCHC 31 L RDW 18.2 H MCV 80 L MCH 25 L Lymph % (Auto) [place] % (Auto) 8.5 H [place] # Eos # Lymph # (Auto) [place] # (Auto) Eos # (Auto) Seg Neutrophils % Seg Neuts % (Manual) Baso # (Auto) Lymphocytes % (Manual) Monocytes % (Manual) Eosinophils % (Manual) Basophils % (Manual) Seg Neutrophils # Seg Neutrophils # Man Lymphocytes # (Manual) Monocytes # (Manual) Eosinophils # (Manual) Nucleated RBC % Basophils # (Manual) PT INR APTT Heparin Anti-Xa Level ABG pH POC ABG pO2 ABG pO2 ABG HCO3 ABG O2 Saturation ABG Base Excess POC ABG pCO2 ABG Hemoglobin ABG Oxyhemoglobin ABG Glucose Oxyhemoglobin Sodium Potassium Chloride Carbon Dioxide BUN Creatinine Glucose POC Glucose 133 H 129 H Lactic Acid Calcium Phosphorus Magnesium AST ALT Lactate Dehydrogenase Total Bilirubin Direct Bilirubin CK-MB (CK-2) C-Reactive Protein NT-Pro-B Natriuret Pep Total Protein Albumin Arterial Blood Glucose Urine WBC (Auto) Urine Creatinine 01/25/20 01/25/20 01/25/20 04:25 05:38 11:52 WBC RBC Hgb Hct MCHC RDW MCV MCH Lymph % (Auto) [place] % (Auto) [place] # Eos # Lymph # (Auto) [place] # (Auto) Eos # (Auto) Seg Neutrophils % Seg Neuts % (Manual) Baso # (Auto) Lymphocytes % (Manual) Monocytes % (Manual) Eosinophils % (Manual) Basophils % (Manual) Seg Neutrophils # Seg Neutrophils # Man Lymphocytes # (Manual) Monocytes # (Manual) Eosinophils # (Manual) Nucleated RBC % Basophils # (Manual) PT INR APTT Heparin Anti-Xa Level ABG pH POC ABG pO2 ABG pO2 ABG HCO3 ABG O2 Saturation ABG Base Excess POC ABG pCO2 ABG Hemoglobin ABG Oxyhemoglobin ABG Glucose Oxyhemoglobin Sodium Potassium Chloride Carbon Dioxide BUN 30 H Creatinine Glucose 134 H POC Glucose 129 H 134 H Lactic Acid Calcium Phosphorus Magnesium AST ALT Lactate Dehydrogenase Total Bilirubin Direct Bilirubin CK-MB (CK-2) C-Reactive Protein NT-Pro-B Natriuret Pep Total Protein Albumin Arterial Blood Glucose Urine WBC (Auto) Urine Creatinine 01/25/20 01/25/20 01/26/20 17:13 21:02 00:59 WBC RBC Hgb Hct MCHC RDW MCV MCH Lymph % (Auto) [place] % (Auto) [place] # Eos # Lymph # (Auto) [place] # (Auto) Eos # (Auto) Seg Neutrophils % Seg Neuts % (Manual) Baso # (Auto) Lymphocytes % (Manual) Monocytes % (Manual) Eosinophils % (Manual) Basophils % (Manual) Seg Neutrophils # Seg Neutrophils # Man Lymphocytes # (Manual) Monocytes # (Manual) Eosinophils # (Manual) Nucleated RBC % Basophils # (Manual) PT INR APTT Heparin Anti-Xa Level ABG pH POC ABG pO2 ABG pO2 57.5 L ABG HCO3 31.7 H ABG O2 Saturation 90.3 L ABG Base Excess 6.6 H POC ABG pCO2 ABG Hemoglobin 13.0 L ABG Oxyhemoglobin ABG Glucose Oxyhemoglobin 87.5 L Sodium Potassium Chloride Carbon Dioxide BUN Creatinine Glucose POC Glucose 124 H 196 H Lactic Acid Calcium Phosphorus Magnesium AST ALT Lactate Dehydrogenase Total Bilirubin Direct Bilirubin CK-MB (CK-2) C-Reactive Protein NT-Pro-B Natriuret Pep Total Protein Albumin Arterial Blood Glucose Urine WBC (Auto) Urine Creatinine 01/26/20 01/26/20 01/26/20 03:20 05:46 12:46 WBC RBC Hgb 9.2 L Hct 29.4 L MCHC RDW MCV MCH Lymph % (Auto) [place] % (Auto) [place] # Eos # Lymph # (Auto) [place] # (Auto) Eos # (Auto) Seg Neutrophils % Seg Neuts % (Manual) Baso # (Auto) Lymphocytes % (Manual) Monocytes % (Manual) Eosinophils % (Manual) Basophils % (Manual) Seg Neutrophils # Seg Neutrophils # Man Lymphocytes # (Manual) Monocytes # (Manual) Eosinophils # (Manual) Nucleated RBC % Basophils # (Manual) PT INR APTT Heparin Anti-Xa Level ABG pH POC ABG pO2 ABG pO2 ABG HCO3 ABG O2 Saturation ABG Base Excess POC ABG pCO2 ABG Hemoglobin ABG Oxyhemoglobin ABG Glucose Oxyhemoglobin Sodium Potassium Chloride Carbon Dioxide BUN Creatinine Glucose POC Glucose 141 H 122 H Lactic Acid Calcium Phosphorus Magnesium AST ALT Lactate Dehydrogenase Total Bilirubin Direct Bilirubin CK-MB (CK-2) C-Reactive Protein NT-Pro-B Natriuret Pep Total Protein Albumin Arterial Blood Glucose Urine WBC (Auto) Urine Creatinine 01/26/20 01/26/20 01/27/20 18:03 23:55 04:47 WBC RBC Hgb Hct MCHC RDW MCV MCH Lymph % (Auto) [place] % (Auto) [place] # Eos # Lymph # (Auto) [place] # (Auto) Eos # (Auto) Seg Neutrophils % Seg Neuts % (Manual) Baso # (Auto) Lymphocytes % (Manual) Monocytes % (Manual) Eosinophils % (Manual) Basophils % (Manual) Seg Neutrophils # Seg Neutrophils # Man Lymphocytes # (Manual) Monocytes # (Manual) Eosinophils # (Manual) Nucleated RBC % Basophils # (Manual) PT INR APTT Heparin Anti-Xa Level ABG pH POC ABG pO2 ABG pO2 ABG HCO3 ABG O2 Saturation ABG Base Excess POC ABG pCO2 ABG Hemoglobin ABG Oxyhemoglobin ABG Glucose Oxyhemoglobin Sodium Potassium Chloride Carbon Dioxide BUN 30 H Creatinine 0.7 L Glucose 135 H POC Glucose 142 H 159 H Lactic Acid Calcium Phosphorus Magnesium AST ALT Lactate Dehydrogenase Total Bilirubin Direct Bilirubin CK-MB (CK-2) C-Reactive Protein NT-Pro-B Natriuret Pep Total Protein Albumin Arterial Blood Glucose Urine WBC (Auto) Urine Creatinine 01/27/20 01/27/20 01/27/20 05:43 12:06 17:16 WBC RBC Hgb Hct MCHC RDW MCV MCH Lymph % (Auto) [place] % (Auto) [place] # Eos # Lymph # (Auto) [place] # (Auto) Eos # (Auto) Seg Neutrophils % Seg Neuts % (Manual) Baso # (Auto) Lymphocytes % (Manual) Monocytes % (Manual) Eosinophils % (Manual) Basophils % (Manual) Seg Neutrophils # Seg Neutrophils # Man Lymphocytes # (Manual) Monocytes # (Manual) Eosinophils # (Manual) Nucleated RBC % Basophils # (Manual) PT INR APTT Heparin Anti-Xa Level ABG pH POC ABG pO2 ABG pO2 ABG HCO3 ABG O2 Saturation ABG Base Excess POC ABG pCO2 ABG Hemoglobin ABG Oxyhemoglobin ABG Glucose Oxyhemoglobin Sodium Potassium Chloride Carbon Dioxide BUN Creatinine Glucose POC Glucose 143 H 142 H 128 H Lactic Acid Calcium Phosphorus Magnesium AST ALT Lactate Dehydrogenase Total Bilirubin Direct Bilirubin CK-MB (CK-2) C-Reactive Protein NT-Pro-B Natriuret Pep Total Protein Albumin Arterial Blood Glucose Urine WBC (Auto) Urine Creatinine 01/27/20 01/28/20 01/28/20 23:55 04:37 05:55 WBC RBC Hgb 9.4 L Hct 29.9 L MCHC RDW MCV MCH Lymph % (Auto) [place] % (Auto) [place] # Eos # Lymph # (Auto) [place] # (Auto) Eos # (Auto) Seg Neutrophils % Seg Neuts % (Manual) Baso # (Auto) Lymphocytes % (Manual) Monocytes % (Manual) Eosinophils % (Manual) Basophils % (Manual) Seg Neutrophils # Seg Neutrophils # Man Lymphocytes # (Manual) Monocytes # (Manual) Eosinophils # (Manual) Nucleated RBC % Basophils # (Manual) PT INR APTT Heparin Anti-Xa Level ABG pH POC ABG pO2 ABG pO2 ABG HCO3 ABG O2 Saturation ABG Base Excess POC ABG pCO2 ABG Hemoglobin ABG Oxyhemoglobin ABG Glucose Oxyhemoglobin Sodium Potassium Chloride Carbon Dioxide BUN Creatinine Glucose POC Glucose 166 H 169 H Lactic Acid Calcium Phosphorus Magnesium AST ALT Lactate Dehydrogenase Total Bilirubin Direct Bilirubin CK-MB (CK-2) C-Reactive Protein NT-Pro-B Natriuret Pep Total Protein Albumin Arterial Blood Glucose Urine WBC (Auto) Urine Creatinine 01/28/20 01/28/20 01/28/20 11:58 17:26 23:46 WBC RBC Hgb Hct MCHC RDW MCV MCH Lymph % (Auto) [place] % (Auto) [place] # Eos # Lymph # (Auto) [place] # (Auto) Eos # (Auto) Seg Neutrophils % Seg Neuts % (Manual) Baso # (Auto) Lymphocytes % (Manual) Monocytes % (Manual) Eosinophils % (Manual) Basophils % (Manual) Seg Neutrophils # Seg Neutrophils # Man Lymphocytes # (Manual) Monocytes # (Manual) Eosinophils # (Manual) Nucleated RBC % Basophils # (Manual) PT INR APTT Heparin Anti-Xa Level ABG pH POC ABG pO2 ABG pO2 ABG HCO3 ABG O2 Saturation ABG Base Excess POC ABG pCO2 ABG Hemoglobin ABG Oxyhemoglobin ABG Glucose Oxyhemoglobin Sodium Potassium Chloride Carbon Dioxide BUN Creatinine Glucose POC Glucose 130 H 126 H 150 H Lactic Acid Calcium Phosphorus Magnesium AST ALT Lactate Dehydrogenase Total Bilirubin Direct Bilirubin CK-MB (CK-2) C-Reactive Protein NT-Pro-B Natriuret Pep Total Protein Albumin Arterial Blood Glucose Urine WBC (Auto) Urine Creatinine 01/29/20 01/29/20 01/29/20 04:55 06:00 12:28 WBC RBC Hgb Hct MCHC RDW MCV MCH Lymph % (Auto) [place] % (Auto) [place] # Eos # Lymph # (Auto) [place] # (Auto) Eos # (Auto) Seg Neutrophils % Seg Neuts % (Manual) Baso # (Auto) Lymphocytes % (Manual) Monocytes % (Manual) Eosinophils % (Manual) Basophils % (Manual) Seg Neutrophils # Seg Neutrophils # Man Lymphocytes # (Manual) Monocytes # (Manual) Eosinophils # (Manual) Nucleated RBC % Basophils # (Manual) PT INR APTT Heparin Anti-Xa Level ABG pH POC ABG pO2 ABG pO2 ABG HCO3 ABG O2 Saturation ABG Base Excess POC ABG pCO2 ABG Hemoglobin ABG Oxyhemoglobin ABG Glucose Oxyhemoglobin Sodium Potassium Chloride Carbon Dioxide 34 H BUN Creatinine 0.6 L Glucose 152 H POC Glucose 157 H 156 H Lactic Acid Calcium Phosphorus Magnesium AST ALT Lactate Dehydrogenase Total Bilirubin Direct Bilirubin CK-MB (CK-2) C-Reactive Protein NT-Pro-B Natriuret Pep Total Protein Albumin Arterial Blood Glucose Urine WBC (Auto) Urine Creatinine 01/29/20 01/30/20 01/30/20 19:06 00:29 05:39 WBC RBC Hgb Hct MCHC RDW MCV MCH Lymph % (Auto) [place] % (Auto) [place] # Eos # Lymph # (Auto) [place] # (Auto) Eos # (Auto) Seg Neutrophils % Seg Neuts % (Manual) Baso # (Auto) Lymphocytes % (Manual) Monocytes % (Manual) Eosinophils % (Manual) Basophils % (Manual) Seg Neutrophils # Seg Neutrophils # Man Lymphocytes # (Manual) Monocytes # (Manual) Eosinophils # (Manual) Nucleated RBC % Basophils # (Manual) PT INR APTT Heparin Anti-Xa Level ABG pH POC ABG pO2 ABG pO2 ABG HCO3 ABG O2 Saturation ABG Base Excess POC ABG pCO2 ABG Hemoglobin ABG Oxyhemoglobin ABG Glucose Oxyhemoglobin Sodium Potassium Chloride Carbon Dioxide BUN Creatinine Glucose POC Glucose 152 H 132 H 159 H Lactic Acid Calcium Phosphorus Magnesium AST ALT Lactate Dehydrogenase Total Bilirubin Direct Bilirubin CK-MB (CK-2) C-Reactive Protein NT-Pro-B Natriuret Pep Total Protein Albumin Arterial Blood Glucose Urine WBC (Auto) Urine Creatinine 01/30/20 01/30/20 01/30/20 12:27 17:42 23:28 WBC RBC Hgb Hct MCHC RDW MCV MCH Lymph % (Auto) [place] % (Auto) [place] # Eos # Lymph # (Auto) [place] # (Auto) Eos # (Auto) Seg Neutrophils % Seg Neuts % (Manual) Baso # (Auto) Lymphocytes % (Manual) Monocytes % (Manual) Eosinophils % (Manual) Basophils % (Manual) Seg Neutrophils # Seg Neutrophils # Man Lymphocytes # (Manual) Monocytes # (Manual) Eosinophils # (Manual) Nucleated RBC % Basophils # (Manual) PT INR APTT Heparin Anti-Xa Level ABG pH POC ABG pO2 ABG pO2 ABG HCO3 ABG O2 Saturation ABG Base Excess POC ABG pCO2 ABG Hemoglobin ABG Oxyhemoglobin ABG Glucose Oxyhemoglobin Sodium Potassium Chloride Carbon Dioxide BUN Creatinine Glucose POC Glucose 151 H 144 H 164 H Lactic Acid Calcium Phosphorus Magnesium AST ALT Lactate Dehydrogenase Total Bilirubin Direct Bilirubin CK-MB (CK-2) C-Reactive Protein NT-Pro-B Natriuret Pep Total Protein Albumin Arterial Blood Glucose Urine WBC (Auto) Urine Creatinine 01/31/20 01/31/20 01/31/20 05:51 11:51 18:06 WBC RBC Hgb Hct MCHC RDW MCV MCH Lymph % (Auto) [place] % (Auto) [place] # Eos # Lymph # (Auto) [place] # (Auto) Eos # (Auto) Seg Neutrophils % Seg Neuts % (Manual) Baso # (Auto) Lymphocytes % (Manual) Monocytes % (Manual) Eosinophils % (Manual) Basophils % (Manual) Seg Neutrophils # Seg Neutrophils # Man Lymphocytes # (Manual) Monocytes # (Manual) Eosinophils # (Manual) Nucleated RBC % Basophils # (Manual) PT INR APTT Heparin Anti-Xa Level ABG pH POC ABG pO2 ABG pO2 ABG HCO3 ABG O2 Saturation ABG Base Excess POC ABG pCO2 ABG Hemoglobin ABG Oxyhemoglobin ABG Glucose Oxyhemoglobin Sodium Potassium Chloride Carbon Dioxide BUN Creatinine Glucose POC Glucose 131 H 167 H 210 H Lactic Acid Calcium Phosphorus Magnesium AST ALT Lactate Dehydrogenase Total Bilirubin Direct Bilirubin CK-MB (CK-2) C-Reactive Protein NT-Pro-B Natriuret Pep Total Protein Albumin Arterial Blood Glucose Urine WBC (Auto) Urine Creatinine 01/31/20 01/31/20 02/01/20 19:24 Unknown 00:34 WBC RBC Hgb Hct MCHC RDW MCV MCH Lymph % (Auto) [place] % (Auto) [place] # Eos # Lymph # (Auto) [place] # (Auto) Eos # (Auto) Seg Neutrophils % Seg Neuts % (Manual) Baso # (Auto) Lymphocytes % (Manual) Monocytes % (Manual) Eosinophils % (Manual) Basophils % (Manual) Seg Neutrophils # Seg Neutrophils # Man Lymphocytes # (Manual) Monocytes # (Manual) Eosinophils # (Manual) Nucleated RBC % Basophils # (Manual) PT INR APTT Heparin Anti-Xa Level ABG pH POC ABG pO2 ABG pO2 ABG HCO3 ABG O2 Saturation ABG Base Excess POC ABG pCO2 ABG Hemoglobin ABG Oxyhemoglobin ABG Glucose Oxyhemoglobin Sodium Potassium Chloride 95.3 L Carbon Dioxide 33 H BUN 36 H Creatinine Glucose 187 H POC Glucose 116 H Lactic Acid Calcium Phosphorus Magnesium AST ALT Lactate Dehydrogenase Total Bilirubin Direct Bilirubin CK-MB (CK-2) C-Reactive Protein NT-Pro-B Natriuret Pep Total Protein Albumin Arterial Blood Glucose Urine WBC (Auto) Urine Creatinine 57.4 H 02/01/20 02/01/20 02/01/20 05:24 10:40 12:29 WBC RBC Hgb Hct MCHC RDW MCV MCH Lymph % (Auto) [place] % (Auto) [place] # Eos # Lymph # (Auto) [place] # (Auto) Eos # (Auto) Seg Neutrophils % Seg Neuts % (Manual) Baso # (Auto) Lymphocytes % (Manual) Monocytes % (Manual) Eosinophils % (Manual) Basophils % (Manual) Seg Neutrophils # Seg Neutrophils # Man Lymphocytes # (Manual) Monocytes # (Manual) Eosinophils # (Manual) Nucleated RBC % Basophils # (Manual) PT INR APTT Heparin Anti-Xa Level ABG pH POC ABG pO2 ABG pO2 ABG HCO3 ABG O2 Saturation ABG Base Excess POC ABG pCO2 ABG Hemoglobin ABG Oxyhemoglobin ABG Glucose Oxyhemoglobin Sodium Potassium Chloride Carbon Dioxide BUN Creatinine Glucose POC Glucose 142 H 165 H 151 H Lactic Acid Calcium Phosphorus Magnesium AST ALT Lactate Dehydrogenase Total Bilirubin Direct Bilirubin CK-MB (CK-2) C-Reactive Protein NT-Pro-B Natriuret Pep Total Protein Albumin Arterial Blood Glucose Urine WBC (Auto) Urine Creatinine 02/01/20 02/01/20 02/02/20 17:16 23:23 06:36 WBC RBC Hgb Hct MCHC RDW MCV MCH Lymph % (Auto) [place] % (Auto) [place] # Eos # Lymph # (Auto) [place] # (Auto) Eos # (Auto) Seg Neutrophils % Seg Neuts % (Manual) Baso # (Auto) Lymphocytes % (Manual) Monocytes % (Manual) Eosinophils % (Manual) Basophils % (Manual) Seg Neutrophils # Seg Neutrophils # Man Lymphocytes # (Manual) Monocytes # (Manual) Eosinophils # (Manual) Nucleated RBC % Basophils # (Manual) PT INR APTT Heparin Anti-Xa Level ABG pH POC ABG pO2 ABG pO2 ABG HCO3 ABG O2 Saturation ABG Base Excess POC ABG pCO2 ABG Hemoglobin ABG Oxyhemoglobin ABG Glucose Oxyhemoglobin Sodium Potassium Chloride Carbon Dioxide BUN Creatinine Glucose POC Glucose 137 H 145 H 181 H Lactic Acid Calcium Phosphorus Magnesium AST ALT Lactate Dehydrogenase Total Bilirubin Direct Bilirubin CK-MB (CK-2) C-Reactive Protein NT-Pro-B Natriuret Pep Total Protein Albumin Arterial Blood Glucose Urine WBC (Auto) Urine Creatinine 02/02/20 02/02/20 02/02/20 10:01 12:05 17:54 WBC RBC Hgb Hct MCHC RDW MCV MCH Lymph % (Auto) [place] % (Auto) [place] # Eos # Lymph # (Auto) [place] # (Auto) Eos # (Auto) Seg Neutrophils % Seg Neuts % (Manual) Baso # (Auto) Lymphocytes % (Manual) Monocytes % (Manual) Eosinophils % (Manual) Basophils % (Manual) Seg Neutrophils # Seg Neutrophils # Man Lymphocytes # (Manual) Monocytes # (Manual) Eosinophils # (Manual) Nucleated RBC % Basophils # (Manual) PT INR APTT Heparin Anti-Xa Level ABG pH POC ABG pO2 ABG pO2 ABG HCO3 ABG O2 Saturation ABG Base Excess POC ABG pCO2 ABG Hemoglobin ABG Oxyhemoglobin ABG Glucose Oxyhemoglobin Sodium Potassium Chloride 95.3 L Carbon Dioxide BUN 44 H Creatinine Glucose 234 H POC Glucose 184 H 127 H Lactic Acid Calcium Phosphorus Magnesium AST 363 H ALT 457 H Lactate Dehydrogenase Total Bilirubin Direct Bilirubin CK-MB (CK-2) C-Reactive Protein NT-Pro-B Natriuret Pep Total Protein Albumin 3.0 L Arterial Blood Glucose Urine WBC (Auto) Urine Creatinine 02/02/20 02/03/20 02/03/20 23:47 05:32 07:04 WBC 13.0 H RBC Hgb 9.5 L Hct 30.8 L MCHC 31 L RDW 19.6 H MCV 81 L MCH 25 L Lymph % (Auto) [place] % (Auto) 9.4 H [place] # Eos # Lymph # (Auto) [place] # (Auto) 1.2 H Eos # (Auto) Seg Neutrophils % 72.3 H Seg Neuts % (Manual) Baso # (Auto) Lymphocytes % (Manual) Monocytes % (Manual) Eosinophils % (Manual) Basophils % (Manual) Seg Neutrophils # 9.4 H Seg Neutrophils # Man Lymphocytes # (Manual) Monocytes # (Manual) Eosinophils # (Manual) Nucleated RBC % Basophils # (Manual) PT INR APTT Heparin Anti-Xa Level ABG pH POC ABG pO2 ABG pO2 ABG HCO3 ABG O2 Saturation ABG Base Excess POC ABG pCO2 ABG Hemoglobin ABG Oxyhemoglobin ABG Glucose Oxyhemoglobin Sodium Potassium Chloride Carbon Dioxide BUN Creatinine Glucose POC Glucose 124 H 129 H Lactic Acid Calcium Phosphorus Magnesium AST ALT Lactate Dehydrogenase Total Bilirubin Direct Bilirubin CK-MB (CK-2) C-Reactive Protein NT-Pro-B Natriuret Pep Total Protein Albumin Arterial Blood Glucose Urine WBC (Auto) Urine Creatinine 02/03/20 02/03/20 02/03/20 07:04 11:32 12:49 WBC RBC Hgb Hct MCHC RDW MCV MCH Lymph % (Auto) [place] % (Auto) [place] # Eos # Lymph # (Auto) [place] # (Auto) Eos # (Auto) Seg Neutrophils % Seg Neuts % (Manual) Baso # (Auto) Lymphocytes % (Manual) Monocytes % (Manual) Eosinophils % (Manual) Basophils % (Manual) Seg Neutrophils # Seg Neutrophils # Man Lymphocytes # (Manual) Monocytes # (Manual) Eosinophils # (Manual) Nucleated RBC % Basophils # (Manual) PT INR APTT Heparin Anti-Xa Level ABG pH POC ABG pO2 ABG pO2 ABG HCO3 ABG O2 Saturation ABG Base Excess POC ABG pCO2 ABG Hemoglobin ABG Oxyhemoglobin ABG Glucose Oxyhemoglobin Sodium Potassium Chloride 97.9 L Carbon Dioxide 33 H BUN 39 H Creatinine Glucose 119 H POC Glucose 138 H Lactic Acid Calcium Phosphorus Magnesium 2.60 H AST ALT Lactate Dehydrogenase Total Bilirubin Direct Bilirubin CK-MB (CK-2) C-Reactive Protein NT-Pro-B Natriuret Pep Total Protein Albumin Arterial Blood Glucose Urine WBC (Auto) Urine Creatinine 02/03/20 02/04/20 02/04/20 18:28 16:24 16:24 WBC RBC 3.38 L Hgb 8.6 L Hct 26.9 L MCHC RDW 19.5 H MCV 80 L MCH 26 L Lymph % (Auto) [place] % (Auto) [place] # Eos # Lymph # (Auto) [place] # (Auto) Eos # (Auto) Seg Neutrophils % Seg Neuts % (Manual) Baso # (Auto) Lymphocytes % (Manual) Monocytes % (Manual) Eosinophils % (Manual) Basophils % (Manual) Seg Neutrophils # Seg Neutrophils # Man Lymphocytes # (Manual) Monocytes # (Manual) Eosinophils # (Manual) Nucleated RBC % Basophils # (Manual) PT INR APTT Heparin Anti-Xa Level ABG pH POC ABG pO2 ABG pO2 ABG HCO3 ABG O2 Saturation ABG Base Excess POC ABG pCO2 ABG Hemoglobin ABG Oxyhemoglobin ABG Glucose Oxyhemoglobin Sodium Potassium 3.4 L Chloride Carbon Dioxide 31 H BUN 37 H Creatinine Glucose 70 L POC Glucose 118 H Lactic Acid Calcium Phosphorus Magnesium AST 169 H ALT 394 H Lactate Dehydrogenase Total Bilirubin 1.50 H Direct Bilirubin CK-MB (CK-2) C-Reactive Protein NT-Pro-B Natriuret Pep Total Protein Albumin 2.9 L Arterial Blood Glucose Urine WBC (Auto) Urine Creatinine 02/05/20 02/05/20 02/05/20 00:41 06:37 17:14 WBC RBC Hgb Hct MCHC RDW MCV MCH Lymph % (Auto) [place] % (Auto) [place] # Eos # Lymph # (Auto) [place] # (Auto) Eos # (Auto) Seg Neutrophils % Seg Neuts % (Manual) Baso # (Auto) Lymphocytes % (Manual) Monocytes % (Manual) Eosinophils % (Manual) Basophils % (Manual) Seg Neutrophils # Seg Neutrophils # Man Lymphocytes # (Manual) Monocytes # (Manual) Eosinophils # (Manual) Nucleated RBC % Basophils # (Manual) PT INR APTT Heparin Anti-Xa Level ABG pH POC ABG pO2 ABG pO2 ABG HCO3 ABG O2 Saturation ABG Base Excess POC ABG pCO2 ABG Hemoglobin ABG Oxyhemoglobin ABG Glucose Oxyhemoglobin Sodium Potassium 3.1 L Chloride Carbon Dioxide 35 H BUN 32 H Creatinine 0.7 L Glucose POC Glucose 69 L 127 H Lactic Acid Calcium Phosphorus Magnesium AST 134 H ALT 352 H Lactate Dehydrogenase Total Bilirubin 1.60 H Direct Bilirubin CK-MB (CK-2) C-Reactive Protein NT-Pro-B Natriuret Pep Total Protein Albumin 2.9 L Arterial Blood Glucose Urine WBC (Auto) Urine Creatinine 02/05/20 02/06/20 02/06/20 23:43 05:32 08:01 WBC RBC Hgb Hct MCHC RDW MCV MCH Lymph % (Auto) [place] % (Auto) [place] # Eos # Lymph # (Auto) [place] # (Auto) Eos # (Auto) Seg Neutrophils % Seg Neuts % (Manual) Baso # (Auto) Lymphocytes % (Manual) Monocytes % (Manual) Eosinophils % (Manual) Basophils % (Manual) Seg Neutrophils # Seg Neutrophils # Man Lymphocytes # (Manual) Monocytes # (Manual) Eosinophils # (Manual) Nucleated RBC % Basophils # (Manual) PT INR APTT Heparin Anti-Xa Level ABG pH POC ABG pO2 ABG pO2 ABG HCO3 ABG O2 Saturation ABG Base Excess POC ABG pCO2 ABG Hemoglobin ABG Oxyhemoglobin ABG Glucose Oxyhemoglobin Sodium Potassium Chloride Carbon Dioxide BUN 40 H Creatinine Glucose 132 H POC Glucose 129 H 131 H Lactic Acid Calcium Phosphorus Magnesium AST ALT Lactate Dehydrogenase Total Bilirubin Direct Bilirubin CK-MB (CK-2) C-Reactive Protein NT-Pro-B Natriuret Pep Total Protein Albumin Arterial Blood Glucose Urine WBC (Auto) Urine Creatinine 02/06/20 02/06/20 02/06/20 11:51 16:28 17:32 WBC RBC Hgb Hct MCHC RDW MCV MCH Lymph % (Auto) [place] % (Auto) [place] # Eos # Lymph # (Auto) [place] # (Auto) Eos # (Auto) Seg Neutrophils % Seg Neuts % (Manual) Baso # (Auto) Lymphocytes % (Manual) Monocytes % (Manual) Eosinophils % (Manual) Basophils % (Manual) Seg Neutrophils # Seg Neutrophils # Man Lymphocytes # (Manual) Monocytes # (Manual) Eosinophils # (Manual) Nucleated RBC % Basophils # (Manual) PT INR APTT Heparin Anti-Xa Level ABG pH POC ABG pO2 ABG pO2 ABG HCO3 ABG O2 Saturation ABG Base Excess POC ABG pCO2 ABG Hemoglobin ABG Oxyhemoglobin ABG Glucose Oxyhemoglobin Sodium Potassium Chloride Carbon Dioxide BUN Creatinine Glucose POC Glucose 167 H 129 H Lactic Acid Calcium Phosphorus Magnesium AST 824 H ALT 948 H Lactate Dehydrogenase Total Bilirubin 1.70 H Direct Bilirubin 1.2 H CK-MB (CK-2) C-Reactive Protein NT-Pro-B Natriuret Pep Total Protein Albumin 2.9 L Arterial Blood Glucose Urine WBC (Auto) Urine Creatinine 02/07/20 02/07/20 02/07/20 00:11 04:57 04:57 WBC RBC Hgb 9.2 L Hct 29.7 L MCHC 31 L RDW 20.2 H MCV 80 L MCH 25 L Lymph % (Auto) [place] % (Auto) [place] # Eos # Lymph # (Auto) [place] # (Auto) Eos # (Auto) Seg Neutrophils % Seg Neuts % (Manual) Baso # (Auto) Lymphocytes % (Manual) Monocytes % (Manual) Eosinophils % (Manual) Basophils % (Manual) Seg Neutrophils # Seg Neutrophils # Man Lymphocytes # (Manual) Monocytes # (Manual) Eosinophils # (Manual) Nucleated RBC % Basophils # (Manual) PT INR APTT Heparin Anti-Xa Level ABG pH POC ABG pO2 ABG pO2 ABG HCO3 ABG O2 Saturation ABG Base Excess POC ABG pCO2 ABG Hemoglobin ABG Oxyhemoglobin ABG Glucose Oxyhemoglobin Sodium Potassium 3.4 L D Chloride Carbon Dioxide 32 H BUN 39 H Creatinine Glucose 106 H POC Glucose 121 H Lactic Acid Calcium Phosphorus Magnesium AST ALT Lactate Dehydrogenase Total Bilirubin Direct Bilirubin CK-MB (CK-2) C-Reactive Protein NT-Pro-B Natriuret Pep Total Protein Albumin Arterial Blood Glucose Urine WBC (Auto) Urine Creatinine 02/07/20 02/07/20 02/07/20 15:03 15:03 17:11 WBC RBC Hgb Hct MCHC RDW MCV MCH Lymph % (Auto) [place] % (Auto) [place] # Eos # Lymph # (Auto) [place] # (Auto) Eos # (Auto) Seg Neutrophils % Seg Neuts % (Manual) Baso # (Auto) Lymphocytes % (Manual) Monocytes % (Manual) Eosinophils % (Manual) Basophils % (Manual) Seg Neutrophils # Seg Neutrophils # Man Lymphocytes # (Manual) Monocytes # (Manual) Eosinophils # (Manual) Nucleated RBC % Basophils # (Manual) PT 27.0 H INR 2.46 H APTT Heparin Anti-Xa Level ABG pH POC ABG pO2 ABG pO2 ABG HCO3 ABG O2 Saturation ABG Base Excess POC ABG pCO2 ABG Hemoglobin ABG Oxyhemoglobin ABG Glucose Oxyhemoglobin Sodium Potassium Chloride Carbon Dioxide BUN Creatinine Glucose POC Glucose 109 H Lactic Acid Calcium Phosphorus Magnesium AST 424 H ALT 796 H Lactate Dehydrogenase Total Bilirubin 1.60 H Direct Bilirubin 1.2 H CK-MB (CK-2) C-Reactive Protein NT-Pro-B Natriuret Pep Total Protein Albumin 2.9 L Arterial Blood Glucose Urine WBC (Auto) Urine Creatinine 02/08/20 02/08/20 02/08/20 12:14 17:44 19:00 WBC RBC Hgb Hct MCHC RDW MCV MCH Lymph % (Auto) [place] % (Auto) [place] # Eos # Lymph # (Auto) [place] # (Auto) Eos # (Auto) Seg Neutrophils % Seg Neuts % (Manual) Baso # (Auto) Lymphocytes % (Manual) Monocytes % (Manual) Eosinophils % (Manual) Basophils % (Manual) Seg Neutrophils # Seg Neutrophils # Man Lymphocytes # (Manual) Monocytes # (Manual) Eosinophils # (Manual) Nucleated RBC % Basophils # (Manual) PT INR APTT Heparin Anti-Xa Level ABG pH POC ABG pO2 ABG pO2 ABG HCO3 ABG O2 Saturation ABG Base Excess POC ABG pCO2 ABG Hemoglobin ABG Oxyhemoglobin ABG Glucose Oxyhemoglobin Sodium Potassium Chloride Carbon Dioxide BUN Creatinine Glucose POC Glucose 111 H 107 H Lactic Acid Calcium Phosphorus Magnesium AST 309 H ALT 650 H Lactate Dehydrogenase Total Bilirubin 1.30 H Direct Bilirubin 0.9 H CK-MB (CK-2) C-Reactive Protein NT-Pro-B Natriuret Pep Total Protein 6.2 L Albumin 2.7 L Arterial Blood Glucose Urine WBC (Auto) Urine Creatinine 02/09/20 05:41 WBC RBC Hgb Hct MCHC RDW MCV MCH Lymph % (Auto) [place] % (Auto) [place] # Eos # Lymph # (Auto) [place] # (Auto) Eos # (Auto) Seg Neutrophils % Seg Neuts % (Manual) Baso # (Auto) Lymphocytes % (Manual) Monocytes % (Manual) Eosinophils % (Manual) Basophils % (Manual) Seg Neutrophils # Seg Neutrophils # Man Lymphocytes # (Manual) Monocytes # (Manual) Eosinophils # (Manual) Nucleated RBC % Basophils # (Manual) PT INR APTT Heparin Anti-Xa Level ABG pH POC ABG pO2 ABG pO2 ABG HCO3 ABG O2 Saturation ABG Base Excess POC ABG pCO2 ABG Hemoglobin ABG Oxyhemoglobin ABG Glucose Oxyhemoglobin Sodium Potassium Chloride Carbon Dioxide BUN Creatinine Glucose POC Glucose 113 H Lactic Acid Calcium Phosphorus Magnesium AST ALT Lactate Dehydrogenase Total Bilirubin Direct Bilirubin CK-MB (CK-2) C-Reactive Protein NT-Pro-B Natriuret Pep Total Protein Albumin Arterial Blood Glucose Urine WBC (Auto) Urine Creatinine Chest x-ray: pending Allied health notes reviewed: nursing
[2020-02-09 21:50] LABS: ABG Base Excess 7.4 mmol/L (-2.0-3.0); ABG HCO3 33.3 mmol/L (20.0-26.0); ABG Methemoglobin 0.6 % (0.0-1.5); ABG Oxygen Saturation 88.9 % (95.0-99.0); ABG PCO2 54.1 mm Hg; ABG PH 7.407 pH Units (7.350-7.450); ABG PO2 59.8 mm Hg (80.0-90.0)
[2020-02-09] MEDS: POLYETHYLENE GLYCOL 3350 17 GM POWDER PO SCH (22:44)
[2020-02-09] MEDS: TAMSULOSIN 0.4 MG CAP PO SCH (22:44)
[2020-02-09] MEDS: LORazepam 2 MG/ML VIAL IV PRN (22:45)
[2020-02-10] MEDS: INSULIN REGULAR, HUMAN 100 UNIT/ML 3ML VIAL SUB-Q SCH ×4 (00:05→17:28)
[2020-02-10] MEDS: METOPROLOL TARTRATE 50 MG TAB PO SCH ×4 (00:05→17:31)
[2020-02-10] MEDS: METOCLOPRAMIDE 10 MG/2 ML INJ IV SCH ×4 (02:56→17:30)
[2020-02-10 08:41] LABS: Basophils # (Auto) 0.1 K/mm3 (0.0-0.1); Basophils % (Auto) 0.5 % (0.0-1.8); Eosinophils # (Auto) 0.3 K/mm3 (0.0-0.4); Eosinophils % (Auto) 2.7 % (0.0-4.3); Hematocrit 34.7 % (35.5-45.6); Hemoglobin 10.6 gm/dl (11.8-15.2); Lymphocytes # (Auto) 2.7 K/mm3 (1.2-5.4); Lymphocytes % (Auto) 23.1 % (13.4-35.0); Mean Corpuscular HGB Conc 31 % (32-34); Mean Corpuscular Volume 79 fl (84-94); Monocytes # (Auto) 1.1 K/mm3 (0.0-0.8); Monocytes % (Auto) 9.2 % (0.0-7.3); Platelet Count 270 K/mm3 (140-440); Red Blood Count 4.39 M/mm3 (3.65-5.03); Red Cell Distribution Width 19.8 % (13.2-15.2)
[2020-02-10 09:04] LABS: Blood Urea Nitrogen 25 mg/dL (9-20); Calcium 9.3 mg/dL (8.4-10.2); Hemolysis Index 6
[2020-02-10 09:05] LABS: BUN/Creatinine Ratio 36
[2020-02-10] MEDS: CLOPIDOGREL 75 MG TAB PO SCH (09:53)
[2020-02-10] MEDS: LANSOPRAZOLE 30 MG SOLUTAB FEEDTUBE SCH (09:53)
[2020-02-10] MEDS: GLYCOPYRROLATE 2 MG TAB PO SCH ×3 (09:53→20:04)
[2020-02-10] MEDS: QUEtiapine 100 MG TAB PO SCH (09:53)
[2020-02-10] MEDS: APIXABAN 5 MG TAB PO SCH (09:54)
[2020-02-10] MEDS: MIDODRINE 5 MG TAB PO SCH ×3 (09:54→17:29)
--- NOTE | 2020-02-10 11:32 | Progress Note ---
Assessment and Plan Chest pain, resolved LHC done 01/22/20 widely patent previous LAD stent. We found mild nonobstructive atherosclerosis of the mid right coronary artery. Otherwise the rest of the coronary system was without significant atherosclerosis. LVEF 40 to 45%. There was some hypokinesis of the basal inferior wall suggestive of previous or recent infarct. ECG done 01/19/20 shows sinus rhythm with low voltage QRS and subtle ST segment elevations in the inferolateral leads that suggested possible concern for an acute injury at that time. Atrial fibrillation, paroxysmal on metoprolol and digoxin amiodarone discontinued due to liver transaminases Ischemic Cardiomyopathy re-echo this presentation reports an LVEF 40-45%. Hx of CAD Multifocal pneumonia negative COVID-19 test x 3 Chronic Respiratory failure s/p trach History of COPD Acute PE/DVT -on Eliquis Anemia Partial SBO vs ileus Recommend: Continue metoprolol and digoxin for management for atrial fibrillation. Continue guideline directed medical therapy for coronary artery disease. Otherwise, conservative cardiac management. Subjective Date of service: 02/10/20 Principal diagnosis: Ac hypoxemic resp failure; Pneumonia; PUI COVID-19; CHF; COPD; HTN Interval history: No interval cardiac changes. Atrial fibrillation with a better controlled ventricular rate on telemetry. Objective Vital Signs Temp Pulse Pulse Resp BP Pulse Ox Pulse Ox 02/10/20 08:00 98.1 F 02/10/20 07:43 97 02/10/20 06:00 123 H 24 99/74 99 02/10/20 05:46 124 H 106/84 96 02/10/20 05:00 126 H 19 101/70 95 02/10/20 04:00 98.8 F 102 H 101 H 22 102/61 99 02/10/20 03:00 116 H 17 84/60 96 02/10/20 02:00 101 H 16 96/66 98 02/10/20 01:00 118 H 21 87/61 92 02/10/20 00:43 113 H 97 02/10/20 00:05 112 H 02/10/20 00:00 98.6 F 111 H 96 H 17 92/61 97 02/09/20 23:00 96 H 21 98/68 94 02/09/20 22:36 111 H 20 91/61 95 02/09/20 22:00 109 H 22 91/61 93 11/17/20 21:12 123 H 88/67 99 02/09/20 21:07 99 02/09/20 21:00 133 H 21 88/67 94 02/09/20 20:00 98.8 F 104 H 103 H 21 87/62 99 02/09/20 19:00 123 H 22 89/64 100 02/09/20 18:00 115 H 21 99/76 99 02/09/20 17:54 130 H 108/60 02/09/20 17:53 130 H 108/60 02/09/20 17:00 124 H 18 106/72 100 02/09/20 16:00 97.6 F 129 H 26 H 103/78 95 02/09/20 15:20 96 02/09/20 15:00 127 H 25 H 99/73 99 02/09/20 14:00 131 H 22 100/73 97 02/09/20 13:02 142 H 118/74 02/09/20 13:00 148 H 20 118/74 99 02/09/20 12:59 141 H 112/79 02/09/20 12:00 97.5 F L 141 H 24 109/78 96 - Physical Examination General: No Apparent Distress (ALERT), Other (s/p trach) HEENT: Positive: PERRL Cardiac: Positive: irregularly irregular Extremities: Absent: edema - Labs and Meds CBC 02/10/20 Range/Units 07:40 WBC 11.5 H (4.5-11.0) K/mm3 RBC 4.39 (3.65-5.03) M/mm3 Hgb 10.6 L (11.8-15.2) gm/dl Hct 34.7 L (35.5-45.6) % Plt Count 270 (140-440) K/mm3 Lymph # (Auto) 2.7 (1.2-5.4) K/mm3 [place] # (Auto) 1.1 H (0.0-0.8) K/mm3 Eos # (Auto) 0.3 (0.0-0.4) K/mm3 Baso # (Auto) 0.1 (0.0-0.1) K/mm3 Comprehensive Metabolic Panel 02/10/20 Range/Units 07:40 Sodium 151 H (137-145) mmol/L Potassium 3.6 (3.6-5.0) mmol/L Chloride 107.2 H (98-107) mmol/L Carbon Dioxide 36 H (22-30) mmol/L BUN 25 H (9-20) mg/dL Creatinine 0.7 L (0.8-1.3) mg/dL Glucose 114 H (75-100) mg/dL Calcium 9.3 (8.4-10.2) mg/dL - Allied health notes Allied health notes reviewed: nursing
[2020-02-10] MEDS: LORazepam 2 MG/ML VIAL IV PRN (13:45)
--- NOTE | 2020-02-10 14:15 | Progress Note ---
Assessment and Plan Assessment and plan: Patient is a 64-year-old male with known history of hypertension, COPD, history of coronary artery disease, CHF with ejection fraction of 20 to 25% in August 2018 presenting to the emergency room via EMS complaining of shortness of breath. Patient was found to be hypoxic and in respiratory distress. Patient was placed on CPAP in route to the hospital. Patient remained hypoxic on CPAP BiPAP ,subsequently was intubated. Work-up in the emergency room including chest x-ray reveals bilateral pneumonia. He had an elevated white count of 14 and also had an elevated BNP. sputum cultures positive for Pseudomonas, ID treated with cefepime and Vanco. His hospital course became complicated with acute PE, DVT, paroxysmal atrial fib - placed on chronic anticoagulation. Patient was difficult to wean off, status post trach and PEG, remains on mechanical ventilation with trach tube. He then developed partial small bowel obstruction valuated by general surgeon symptom improved with medical Mx, patient was briefly weaned off ventilatory support however, was in respiratory failure requiring full ventilatory support. Cardiac catheterization on 01/22/2020. No new issues overnight. -Ischemic cardiomyopathy Cardiology is following, status post cardiac catheterization on 01/22/2020; Coronary artery disease status post PCI and stent to the LAD Continue current cardiac medications --Acute on chronic hypoxemic respiratory failure; Patient has tracheostomy on vent Continue nebulizers, , trach care Wean off ventilator as tolerated Pulmonary critical following --Acute exacerbation of COPD; Patient is currently on ventilatory support Continue nebulizers --Left lower lobe PE; Continue Eliquis, ventilatory support --Acute right lower extremity DVT; Patient is on Eliquis --Bilateral multifocal pneumonia/community-acquired Completed antibiotics, improved --Severe sepsis/bilateral pneumonia: Completed antibiotics COVID-19 test; 11/24/2019; negative 11/26/2019; negative 12/29/2019: Negative --atrial fibrillation WITH RVR Now rate controlled, Stable on amiodarone and Eliquis --Acute on chronic combined systolic and diastolic congestive heart failure Ischemic cardiomyopathy left ventricular ejection fraction 40 to 45% --H/o CAD [[facility] 12/2018 in-stent restenosis] --Hypertensive emergency; present on admission Reasonable blood pressures, continue current antihypertensives As needed medications --Hypokalemia; replenish per protocol and monitor levels --History of alcohol abuse/alcohol withdrawal; Was on CIWA protocol, now stable --Oropharyngeal dysphagia; status post PEG placement Continue PEG feeds per protocol --History of partial small bowel obstruction; resolved Surgery evaluated. At present not a surgical candidate. --Obesity; BMI 34.7 Patient needs weight reduction when medically stable --Severe protein calorie malnutrition/hypoalbuminemia Nutrition supplements, dietitian following, PEG feeds --DVT prophylaxis;Eliquis --Full CODE STATUS We will closely monitor the patient and adjust management as needed Plan of care reviewed with the patient's nurse Regulatory Intern recommendations noted and appreciated February 02, 2020 Patient with episode of projectile vomiting. Most likely source partial bowel obstruction versus tube feeds. Will obtain chest x-ray to rule out aspiration. We will also hold tube feeds for 12 hours and obtain KUB. Area tracheostomy needs to be cleaned out as well. Patient obviously has failed T-piece trial again this time. Resume weaning parameters in a.m. Unlikely the secretions that have been fairly well controlled. Atrial fibrillation rate have remained well controlled. Continue amiodarone and beta-hebert. Metoprolol. Congestive heart failure ejection fraction 40 to 45% patient had inferior wall hypokinesis on catheterization otherwise stable. Continue present diuresis Acute respiratory failure unable to wean tracheostomy at this time. Failed T- piece trial again. Despite improve secretions. Continue bronchodilators and weaning parameters. Projectile vomiting. Rule out small bowel obstruction rule out ileus. Will hold tube feeds obtain imaging to rule out aspiration and bowel obstruction as well. Continue antibiotics. 02/02: Discussed with Nursing staff, patient with some mild change in mental status, not following commands like prior,WILL OBTAIN HEAD CT remains intubated on full mechanical ventilatory support. Today is my first day seeing the patient, have reviewed all records so far. Patients still with elevated heart rate of Afib with RVR continue amiodarone and metoprolol. LVEF 40 to 45%. Con tinue Eliquis FOR THE Acute PE/DVT. Partial SBO vs ileus- KUB is negative. Will monitor, No further vomiting noted. If no improvement will repeat a chest xray to ensure no aspiration in the last 24 hrs. Will initiate sepsis work up, Obtain cultures, cxr- no change, only showing stable bilateral pulmonary opacities, lactate checked and wnl. Mild elevation in WBC. will recheck in am. IF Continued fever, will reconsult ID. 02/03: Mental status more improved, agree with Reglan will change to IV sc heduled for two days, no new vomiting. Pseudomonas A in Sputum. 02/04: Clinical improving, amiodarone discontinued due to LFTs, continue Metoprolol. Discussed with GI, started on Golytely to clear impaction. Started on dialy Miralax. 02/05: Continue supportive care. Noted bowel movement, continue bowel regimen 02/06: Cardiology input noted beta-hebert increased for better suppression of atrial fibrillation. Continue to monitor, no other evidence of nausea vomiting noted. Discussed with respiratory therapist will be continued on weaning protocol with pressure support today. 02/07: Patient successfully weaned off the ventilator, No new complaints, continue monitoring, BM noted, Discussed with pulmonary, 02/08; tracheostomy on T-piece, patient is more alert and awake today 02/09; clinically no change, tracheostomy on vent History Interval history: I have seen and examined the patient at the bedside this morning in ICU Patient's chart and medications reviewed Patient with tracheostomy on T-piece in mild distress Vital signs reviewed Hospitalist Physical - Constitutional Vitals: Temp Pulse Resp BP Pulse Ox 98.1 F 138 H 21 125/74 97 02/10/20 08:00 02/10/20 13:29 02/10/20 12:00 02/10/20 13:29 02/10/20 12:00 General appearance: Present: no acute distress, well-nourished, obese, other (Tracheostomy, T-piece) - EENT Eyes: Present: PERRL, EOM intact - Neck Neck: Present: supple, normal ROM - Respiratory Respiratory effort: normal Respiratory: bilateral: diminished, rhonchi, negative: rales, wheezing - Cardiovascular Rhythm: regular Heart Sounds: Present: S1 & S2 - Extremities Extremities: no ischemia, No edema - Abdominal General gastrointestinal: soft, non-tender, non-distended, normal bowel sounds, other (PEG tube in place) - Integumentary Integumentary: Present: clear, warm - Psychiatric Psychiatric: other (Minimally communicative) - Neurologic Neurologic: moves all extremities, other (Minimally communicative) HEART Score - HEART Score Troponin: Troponin T < 0.010 ng/mL (0.00-0.029) 01/19/20 01:35 Results - Labs CBC & Chem 7: 02/10/20 07:40 02/10/20 07:40 Labs: Laboratory Last Values WBC 11.5 K/mm3 (4.5-11.0) H 02/10/20 07:40 RBC 4.39 M/mm3 (3.65-5.03) 02/10/20 07:40 Hgb 10.6 gm/dl (11.8-15.2) L 02/10/20 07:40 Hct 34.7 % (35.5-45.6) L 02/10/20 07:40 MCV 79 fl (84-94) L 02/10/20 07:40 MCH 24 pg (28-32) L 02/10/20 07:40 MCHC 31 % (32-34) L 02/10/20 07:40 RDW 19.8 % (13.2-15.2) H 02/10/20 07:40 Plt Count 270 K/mm3 (140-440) 02/10/20 07:40 Lymph % (Auto) 23.1 % (13.4-35.0) 02/10/20 07:40 [place] % (Auto) 9.2 % (0.0-7.3) H 02/10/20 07:40 Eos % (Auto) 2.7 % (0.0-4.3) 02/10/20 07:40 Baso % (Auto) 0.5 % (0.0-1.8) 02/10/20 07:40 Lymph # (Auto) 2.7 K/mm3 (1.2-5.4) 02/10/20 07:40 [place] # (Auto) 1.1 K/mm3 (0.0-0.8) H 02/10/20 07:40 Eos # (Auto) 0.3 K/mm3 (0.0-0.4) 02/10/20 07:40 Baso # (Auto) 0.1 K/mm3 (0.0-0.1) 02/10/20 07:40 Add Manual Diff Complete 12/19/19 11:32 Total Counted 100 12/19/19 11:32 Seg Neutrophils % 64.5 % (40.0-70.0) 02/10/20 07:40 Seg Neuts % (Manual) 82.0 % (40.0-70.0) H 12/19/19 11:32 Band Neutrophils % 0 % 12/19/19 11:32 Lymphocytes % (Manual) 10.0 % (13.4-35.0) L 12/19/19 11:32 Reactive Lymphs % (Man) 0 % 12/19/19 11:32 Monocytes % (Manual) 6.0 % (0.0-7.3) 12/19/19 11:32 Eosinophils % (Manual) 2.0 % (0.0-4.3) 12/19/19 11:32 Basophils % (Manual) 0 % (0.0-1.8) 12/19/19 11:32 Metamyelocytes % 0 % 12/19/19 11:32 Myelocytes % 0 % 12/19/19 11:32 Promyelocytes % 0 % 12/19/19 11:32 Blast Cells % 0 % 12/19/19 11:32 Nucleated RBC % 1.0 % (0.0-0.9) H 12/19/19 11:32 Seg Neutrophils # 7.4 K/mm3 (1.8-7.7) 02/10/20 07:40 Seg Neutrophils # Man 12.0 K/mm3 (1.8-7.7) H 12/19/19 11:32 Band Neutrophils # 0.0 K/mm3 12/19/19 11:32 Lymphocytes # (Manual) 1.5 K/mm3 (1.2-5.4) 12/19/19 11:32 Abs React Lymphs (Man) 0.0 K/mm3 12/19/19 11:32 Monocytes # (Manual) 0.9 K/mm3 (0.0-0.8) H 12/19/19 11:32 Eosinophils # (Manual) 0.3 K/mm3 (0.0-0.4) 12/19/19 11:32 Basophils # (Manual) 0.0 K/mm3 (0.0-0.1) 12/19/19 11:32 Metamyelocytes # 0.0 K/mm3 12/19/19 11:32 Myelocytes # 0.0 K/mm3 12/19/19 11:32 Promyelocytes # 0.0 K/mm3 12/19/19 11:32 Blast Cells # 0.0 K/mm3 12/19/19 11:32 WBC Morphology Not Reportable 12/19/19 11:32 Hypersegmented Neuts Not Reportable 12/19/19 11:32 Hyposegmented Neuts Not Reportable 12/19/19 11:32 Hypogranular Neuts Not Reportable 12/19/19 11:32 Smudge Cells Not Reportable 12/19/19 11:32 Toxic Granulation Not Reportable 12/19/19 11:32 Toxic Vacuolation Not Reportable 12/19/19 11:32 Dohle Bodies Not Reportable 12/19/19 11:32 Pelger-Huet Anomaly Not Reportable 12/19/19 11:32 Hector Rods Not Reportable 12/19/19 11:32 Platelet Estimate Consistent w auto 12/19/19 11:32 Clumped Platelets Not Reportable 12/19/19 11:32 Plt Clumps, EDTA Not Reportable 12/19/19 11:32 Large Platelets Not Reportable 12/19/19 11:32 Giant Platelets Not Reportable 12/19/19 11:32 Platelet Satelliting Not Reportable 12/19/19 11:32 Plt Morphology Comment Not Reportable 12/19/19 11:32 RBC Morphology Not Reportable 12/19/19 11:32 Dimorphic RBCs Not Reportable 12/19/19 11:32 Polychromasia Not Reportable 12/19/19 11:32 Hypochromasia Few 12/19/19 11:32 Poikilocytosis Not Reportable 12/19/19 11:32 Anisocytosis 1+ 12/19/19 11:32 Microcytosis Few 12/19/19 11:32 Macrocytosis Few 12/19/19 11:32 Spherocytes Not Reportable 12/19/19 11:32 Pappenheimer Bodies Not Reportable 12/19/19 11:32 Sickle Cells Not Reportable 12/19/19 11:32 Target Cells Not Reportable 12/19/19 11:32 Tear Drop Cells Not Reportable 12/19/19 11:32 Ovalocytes Not Reportable 12/19/19 11:32 Helmet Cells Not Reportable 12/19/19 11:32 Gottlieb-Radom Bodies Not Reportable 12/19/19 11:32 Irwin Rings Not Reportable 12/19/19 11:32 [place] Cells Not Reportable 12/19/19 11:32 Bite Cells Not Reportable 12/19/19 11:32 Crenated Cell Not Reportable 12/19/19 11:32 Elliptocytes Not Reportable 12/19/19 11:32 Acanthocytes (Spur) Not Reportable 12/19/19 11:32 Rouleaux Not Reportable 12/19/19 11:32 Hemoglobin C Crystals Not Reportable 12/19/19 11:32 Schistocytes Not Reportable 12/19/19 11:32 Malaria parasites Not Reportable 12/19/19 11:32 Clifford Bodies Not Reportable 12/19/19 11:32 Hem Pathologist Commnt No 12/19/19 11:32 PT 27.0 Sec. (12.2-14.9) H 02/07/20 15:03 INR 2.46 (0.87-1.13) H 02/07/20 15:03 APTT 31.5 Sec. (24.2-36.6) 01/22/20 09:58 Heparin Anti-Xa Level 1.34 U.I./ml (0.3-0.7) H 01/22/20 04:45 ABG pH 7.407 pH Units (7.350-7.450) 02/09/20 21:40 POC ABG pCO2 45.6 mmHg (32.0-48.0) 01/12/20 13:58 ABG pCO2 54.1 mm Hg 02/09/20 21:40 POC ABG pO2 76.6 mmHg (83-108) L 01/12/20 13:58 ABG pO2 59.8 mm Hg (80.0-90.0) L 02/09/20 21:40 POC ABG HCO3 31.2 01/12/20 13:58 ABG HCO3 33.3 mmol/L (20.0-26.0) H 02/09/20 21:40 ABG O2 Saturation 88.9 % (95.0-99.0) L 02/09/20 21:40 ABG O2 Content 12.7 (0.0-44) 02/09/20 21:40 POC ABG Base Excess 6.5 01/12/20 13:58 ABG Base Excess 7.4 mmol/L (-2.0-3.0) H 02/09/20 21:40 ABG Hemoglobin 10.4 gm/dl (14.0-18.0) L 02/09/20 21:40 ABG Oxyhemoglobin 84 (94-98) L 12/22/19 03:22 ABG Carboxyhemoglobin 2.3 % (0.0-5.0) 02/09/20 21:40 ABG Methemoglobin 0.6 % (0.0-1.5) 02/09/20 21:40 ABG Sodium 136.8 mmol/L (136.0-145.0) 01/12/20 13:58 ABG Potassium 3.7 mmol/L (3.40-4.50) 01/12/20 13:58 ABG Chloride 103.0 mmol/L (98-107) 01/12/20 13:58 ABG Glucose 99 mg/dL (65-95) H 01/12/20 13:58 Oxyhemoglobin 86.3 % (95.0-99.0) L 02/09/20 21:40 Carboxyhemoglobin 0.7 (0.5-1.5) 12/22/19 03:22 FiO2 40 % 02/09/20 21:40 Sodium 151 mmol/L (137-145) H 02/10/20 07:40 Potassium 3.6 mmol/L (3.6-5.0) 02/10/20 07:40 Chloride 107.2 mmol/L (98-107) H 02/10/20 07:40 Carbon Dioxide 36 mmol/L (22-30) H 02/10/20 07:40 Anion Gap 11 mmol/L 02/10/20 07:40 BUN 25 mg/dL (9-20) H 02/10/20 07:40 Creatinine 0.7 mg/dL (0.8-1.3) L 02/10/20 07:40 Estimated GFR > 60 ml/min 02/10/20 07:40 BUN/Creatinine Ratio 36 % 02/10/20 07:40 Glucose 114 mg/dL (75-100) H 02/10/20 07:40 POC Glucose 116 mg/dL (70-105) H 02/10/20 13:38 Lactic Acid 1.60 mmol/L (0.7-2.0) 02/03/20 12:49 Calcium 9.3 mg/dL (8.4-10.2) 02/10/20 07:40 Ferritin 84.4 ng/mL (30.0-300.0) 11/24/19 04:53 Phosphorus 4.10 mg/dL (2.5-4.5) 01/31/20 19:24 Magnesium 2.40 mg/dL (1.7-2.3) H 02/10/20 07:40 Total Bilirubin 1.30 mg/dL (0.1-1.2) H 02/08/20 19:00 Direct Bilirubin 0.9 mg/dL (0-0.2) H 02/08/20 19:00 Indirect Bilirubin 0.4 mg/dL 02/08/20 19:00 Total Creatine Kinase 141 units/L (55-170) 11/24/19 02:53 CK-MB (CK-2) 4.3 ng/mL (0.0-4.0) H 11/24/19 02:53 AST 309 units/L (5-40) H 02/08/20 19:00 ALT 650 units/L (7-56) H 02/08/20 19:00 CK-MB (CK-2) Rel Index 3.0 (0-4) 11/24/19 02:53 Alkaline Phosphatase 109 units/L (35-129) 02/08/20 19:00 C-Reactive Protein 8.50 mg/dL (0.00-1.30) H 12/01/19 12:16 Ammonia 35.0 umol/L (25-60) 02/03/20 12:49 Lactate Dehydrogenase 228 units/L (91-180) H 12/19/19 04:45 Troponin T < 0.010 ng/mL (0.00-0.029) 01/19/20 01:35 NT-Pro-B Natriuret Pep 3866 pg/mL (0-900) H 01/01/20 10:40 Total Protein 6.2 g/dL (6.3-8.2) L 02/08/20 19:00 Albumin 2.7 g/dL (3.9-5) L 02/08/20 19:00 Albumin/Globulin Ratio 0.8 % 02/08/20 19:00 Procalcitonin 0.44 ng/mL (<0.15) 02/03/20 12:49 Arterial Blood Glucose 99 mg/dL (65-95) H 01/12/20 13:58 Arterial Blood Ionized Calcium 4.8 mg/dL (4.6-5.3) 01/12/20 13:58 Urine Color Cecy (Yellow) 12/31/19 18:04 Urine Turbidity Clear (Clear) 12/31/19 18:04 Urine pH 5.0 (5.0-7.0) 12/31/19 18:04 Ur Specific [place] 1.023 (1.003-1.030) 12/31/19 18:04 Urine Protein <15 mg/dl mg/dL (Negative) 12/31/19 18:04 Urine Glucose (UA) Neg mg/dL (Negative) 12/31/19 18:04 Urine Ketones Neg mg/dL (Negative) 12/31/19 18:04 Urine Blood Neg (Negative) 12/31/19 18:04 Urine Bacteria (Auto) 1+ /HPF (Negative) 12/03/19 06:03 Urine Nitrite Neg (Negative) 12/31/19 18:04 Urine Bilirubin Neg (Negative) 12/31/19 18:04 Urine Urobilinogen 4.0 mg/dL (<2.0) 12/31/19 18:04 Ur Leukocyte Esterase Neg (Negative) 12/31/19 18:04 Urine WBC (Auto) 2.0 /HPF (0.0-6.0) 12/31/19 18:04 Urine RBC (Auto) 3.0 /HPF (0.0-6.0) 12/31/19 18:04 U Epithel Cells (Auto) 2.0 /HPF (0-13.0) 12/31/19 18:04 Urine Mucus 1+ /HPF 12/31/19 18:04 Urine Creatinine 57.4 mg/dL (0.1-20.0) H 01/31/20 Unknown Urine Sodium 59 mmol/L 01/31/20 Unknown Vancomycin Trough 14.2 ug/mL (5.0-20.0) 12/13/19 15:01 Coronavirus (PCR) Negative (Negative) 12/29/19 10:07 Hepatitis A IgM Ab Non-reactive (NonReactive) 02/05/20 06:37 Hep Bs Antigen Non-reactive (Negative) 02/05/20 06:37 Hep B Core IgM Ab Non-reactive (NonReactive) 02/05/20 06:37 Hepatitis C Antibody Non-reactive (NonReactive) 02/05/20 06:37 Blood Type O POSITIVE 01/21/20 13:00 Antibody Screen Negative 01/21/20 13:00 - Diagnostic Impressions Diagnostic Impressions: Echocardiogram 11/29/19 07:37 Transthoracic Echocardiogram Indication: CHF BP: 116/72 HR: 33 Conclusions *The study is technically limited due to poor acoustic windows. *Global left ventricular systolic function is normal. *The estimated ejection fraction is 50-55%. *Mild concentric left ventricular hypertrophy is observed. *There is trace of mitral regurgitation. *There is mild tricuspid regurgitation. Findings Procedure Info: The study quality is poor. The study is technically limited due to poor acoustic windows. The study is technically limited due to patient body habitus. Left Ventricle: The left ventricular chamber size is normal. Mild concentric left ventricular hypertrophy is observed. Global left ventricular systolic function is normal. The estimated ejection fraction is 50-55%. Left Atrium: The left atrial chamber size is normal. Right Ventricle: The right ventricular cavity size is normal. Right Atrium: The right atrial cavity size is normal. Aortic Valve: The aortic valve leaflets are moderately thickened. There is trace of aortic regurgitation. There is no evidence of aortic stenosis. Mitral Valve: The mitral valve leaflets are mildly thickened. There is trace of mitral regurgitation. There is no evidence of mitral stenosis. Tricuspid Valve: There is mild tricuspid regurgitation. No pulmonary hypertension is noted. Pulmonic Valve: There is trace pulmonic regurgitation. Pericardium: There is no pericardial effusion. Aorta: There is no dilatation of the aortic root. Venous: The inferior vena cava appears normal in size. Contrast: Definity was used to optimize study. Intravenous contrast was used to enhance endocardial border definition. Measurements Chambers 2D Name Value Normal Range Ao root diameter (2D) 3.4 cm (2 - 3.7) Aortic Valve Name Value Normal Range AV Vmax 0.98 m/sec - AV VTI 16.76 cm - AV peak gradient 3.83 mmHg - AV mean gradient 2.57 mmHg - LVOT diameter 3.11 cm - LVOT Vmax 0.68 m/sec - LVOT VTI 11.52 cm - LVOT peak gradient 1.84 mmHg - LVOT mean gradient 1.27 mmHg - SV LVOT 87.31 ml - MALOU (continuity Vmax) 5.24 cm2 - MALOU (continuity VTI) 5.21 cm2 - Tricuspid Valve Name Value Normal Range IVC diameter 2.24 cm (1.2 - 2.3) Hoffman/IV: Voiding Method Indwelling Catheter IV Catheter Type [Right INT / Saline Lock Forearm] IV Catheter Type [Right Hand] Peripheral IV IV Catheter Type [Right Upper INT / Saline Lock arm] IV Catheter Type [Left Upper Mid-line arm] IV Catheter Type [Left Forearm INT / Saline Lock ] IV Catheter Type [Left Hand] Peripheral IV IV Catheter Type [Left Wrist] INT / Saline Lock IV Catheter Type [Right Peripheral IV Antecubital] Active Medications - Current Medications Current Medications: Generic Name Dose Route Start Last Admin Trade Name Freq PRN Reason Stop Dose Admin Acetaminophen 650 mg 12/31/19 11:43 02/03/20 12:54 Tylenol FEEDTUBE 650 mg Q6H PRN Administration Pain, Mild (1-3) Lipase/Protease/Amylase 1 each 01/09/20 12:01 Pancreaztao Betancourt 10,500 Unit FEEDTUBE PRN PRN For Clogged Feeding Tube Apixaban 5 mg 01/22/20 22:00 02/10/20 09:54 Eliquis PO 5 mg Q12HR CAR Administration Protocol Atorvastatin Calcium 40 mg 01/20/20 22:00 02/09/20 22:44 Lipitor PO 40 mg QHS CAR Administration Clopidogrel Bisulfate 75 mg 01/21/20 06:00 02/10/20 09:53 Plavix PO 75 mg QDAY CAR Administration Dextrose 50 ml 01/31/20 18:51 02/05/20 00:56 D50w (25gm) Syringe IV 50 ml Q30MIN PRN Administration Hypoglycemia Protocol Digoxin 0.125 mg 02/10/20 17:00 Lanoxin IV DAILY@1700 CAR Fentanyl 50 mcg 02/01/20 15:52 Sublimaze IV Q10MIN PRN ANALGESIA Glycopyrrolate 2 mg 01/26/20 20:00 02/10/20 13:31 Glycopyrrolate PO 2 mg TID CAR Administration Haloperidol Lactate 5 mg 12/25/19 10:00 01/22/20 11:35 Haldol IV 5 mg Q6H PRN Administration Unrespon. to mult. doses BZD's Hydrophilic Ointment 1 applic 01/17/20 15:26 Vaseline Lip Therapy TP DIRECT PRN Dry Lips Fentanyl Citrate 2,000 mcg in 100 mls @ 5.65 mls/hr 02/01/20 16:00 02/03/20 11:31 Fentanyl Drip Premix IV 0 mcg/kg/hr TITR CAR 0 mls/hr Titration Protocol 1 MCG/KG/HR Insulin Human Regular 0 unit 02/01/20 18:00 02/10/20 13:27 Humulin R SUB-Q Not Given Q6H [facility] Protocol Lansoprazole 30 mg 02/05/20 16:00 02/10/20 09:53 Prevacid Solutab FEEDTUBE 30 mg QDAY CAR Administration Lorazepam 2 mg 12/25/19 10:00 02/10/20 13:45 Ativan IV 2 mg Q6H PRN Administration AGITATION Metoclopramide HCl 10 mg 02/08/20 12:00 02/10/20 13:30 Reglan IV 10 mg Q6HR CAR Administration Metoprolol Tartrate 5 mg 01/11/20 08:00 02/03/20 07:16 Metoprolol IV 5 mg Q6H PRN Administration SEE INSTRUCTIONS Metoprolol Tartrate 50 mg 02/05/20 12:00 02/10/20 13:29 Metoprolol PO 50 mg Q6HR [facility] Administration Midodrine 15 mg 02/04/20 16:00 02/10/20 13:29 Proamatine PO Not Given TID@0800,1200,1600 [facility] Morphine Sulfate 2 mg 01/06/20 15:41 02/09/20 00:32 Morphine IV 2 mg Q4H PRN Administration Pain, Moderate (4-6) Multi-Ingred Cream/Lotion/Oil/Oint 1 applic 02/01/20 15:52 Artificial Tears Ophth Oint OU Q4HR PRN Dry Eye(s) Nitroglycerin 0.4 mg 01/19/20 21:09 01/20/20 03:03 Nitrostat SL 0.4 mg .Q5MIN PRN Administration Chest Pain Ondansetron HCl 4 mg 01/05/20 14:37 02/07/20 00:10 Zofran IV 4 mg Q8H PRN Administration Nausea And Vomiting Polyethylene Glycol 17 gm 12/04/19 22:00 02/09/20 22:44 Miralax 3350 PO Not Given QHS [facility] Quetiapine Fumarate 300 mg 01/13/20 22:00 02/10/20 09:53 Seroquel PO 300 mg BID CAR Administration Scopolamine 1 each 01/07/20 20:00 01/07/20 21:08 Transderm-Scop TD 1 each Q72HR CAR Administration Simple Syrup 15 ml 01/09/20 12:01 Simple Syrup FEEDTUBE PRN PRN Hypoglycemia Simple Syrup 30 ml 01/09/20 12:01 Simple Syrup FEEDTUBE PRN PRN Hypoglycemia Sodium Bicarbonate 325 mg 01/09/20 12:01 Sodium Bicarbonate FEEDTUBE PRN PRN For Clogged Feeding Tube Sodium Chloride 10 ml 11/24/19 10:00 02/10/20 09:55 Sodium Chloride Flush Syringe 10 Ml IV 10 ml BID CAR Administration Tamsulosin HCl 0.8 mg 12/20/19 22:00 02/09/20 22:44 Flomax PO 0.8 mg QHS CAR Administration Nutrition/Malnutrition Assess - Dietary Evaluation Nutrition/Malnutrition Findings: Nutrition Notes Start: 11/24/19 12:22 Freq: Status: Active Protocol: Document 02/09/20 12:48 EN (Rec: 02/09/20 13:16 EN [id number]) Co-Sign 02/09/20 12:48 MK Nutrition Notes Initial or Follow up Reassessment Current Diagnosis Coronary Artery Disease,Heart Failure,Respiratory Failure, Stroke,Hyperlipidemia Other Pertinent Diagnosis Partial SBO, pneu, ventilated trach Current Diet No diet order Labs/Tests POC Glu 113 Pertinent Medications Reviewed Height 6 ft 2 in Weight 114 kg [place] Body Weight (kg) 86.36 BMI 32.2 Weight Status Overweight Subjective/Other Information F/u for POC. Pt restarted on TF. TF is infusing at 40 ml/hr and pt is tolerating well. Pt has not yet been evaluated for swallow function. Pt was extubated on 02/07. Percent of energy/protein needs met: 53%/44% Burn Absent Trauma Absent GI Symptoms None Current % PO Negligible Minimum of two criteria Yes Muscle Mass Mild Depletion (non-severe) Fluid Accumulation Mild (non-severe) Reduced Research Biostatistician Strength Measurably Reduced (severe) #2 Nutrition Diagnosis Malnutrition Diagnosis Progress(for reassessment Continues documentation) #1 Nutrition Diagnosis Inadequate oral intake Diagnosis Progress(for reassessment Continues documentation) Is patient on ventilator? No Is Patient Ambulatory and/or Out of Bed No [facility] 2410.380 Kcal/Kg value to use for calculation 19 Approximate Energy Requirements Using 2166 kcal/Kg Calculation Used for Recommendations Kcal/kg Additional Notes Protein needs are 119-148g (1. 2-1.5 g/kg AdBW of 99.18kg) Fluid needs are 1.5L Nutrition Intervention Change Diet Order: Continue TF via PEG Nutrition Support: Vital AF 1.2 at 75ml/hr. Flush 100ml q4h Kcal 2,160 Protein (gm) 135 Fluid (mL) 1,460 Goal #1 Meet at least 75% of pt's energy and protein needs Goal #2 Weight maintenance Anticipated Discharge Needs: unable to determine Follow-Up By: 02/11/20 Additional Comments F/u for TF tolerance and POC
--- NOTE | 2020-02-10 14:18 | Progress Note ---
Assessment and Plan Acute hypoxemic respiratory failure Bilateral pneumonia, community acquired. Acute LLL branch P.E. Acute DVT Person under investigation for COVID-19 infection. Acute congestive heart failure exacerbation. History of cerebrovascular accident. Acute chronic obstructive pulmonary disease exacerbation. Hypertension and hypertensive urgency at presentation. History of arthritis. Leukocytosis. Lactic acidosis. Oropharyngeal dysphagia - stopped prn Ativan - use prn haldol to avoid hypoventilation - continue to shoot for RTC t-piece trials as tolerated henceforth (PSV if fails t-piece) - continue care as below otherwise; - continue daily SAT's and SBT assessment as tolerated - continue Flomax at increased dose - antiinfective's per ID rec's - Midodrine for BP support - prn mucomyst nebs re: secretions - continue full anticoagulation with Apixaban - continue seroquel for anxiolysis / delirium - COVID isolation per facility protocol - prn diuresis while following electrolytes / I's & O's - continue to wean oxygen for O2 sat's > 92% - continue bronchodilators with routine trach care and pulmonary hygiene per RT - continue Robinul & Scopolamine for secretion control - VAP bundle addressed (Aspiration precautions, HOB >40) - continue to wean per pulmonary driven protocols - sedation target is RASS 0 to -1 - continue prn analgesia per CPOT score - follow clinically re: fever curves / trend WBC - Avoid delirium (no benzodiazepines if they can be avoided) - Maintain sleep-wake cycle - enteral nutrition at goal rate as tolerated - continue accucheck's with glycemic control per SSI for target blood glucose goal of 140-180 mg/dL while critically ill; Avoid hypoglycemia - for VTE he is on IV Heparin - continue stress ulcer prophylaxis with Famotidine - continue mobility protocols for pressure ulcer prophylaxis - continue fall precautions - continue wound care management per RN / WCT - Supportive transfusions to keep HgB>7g/dL - CXR's and ABG's prn - Continue to monitor neurologic function - Continue chronic home medications - Continue all supportive care ........ re-evaluate in am & prn CONDITION: CRITICAL PROGNOSIS: GUARDED CODE STATUS: FULL CODE The high probability of a clinically significant, sudden or life threatening deterioration of the [Respiratory, cardiovascular & neurological] system(s) required my full and direct attention, intervention and personal management. The aggregate critical care time was [32] minutes without overlap. Time includes spent on [x] Data Review and interpretation [x] Patient assessment and monitoring of vital signs [x] Documentation [x] Medication orders and management Subjective Date of service: 02/10/20 Principal diagnosis: Ac hypoxemic resp failure; Pneumonia; PUI COVID-19; CHF; COPD; HTN Interval history: Patient is seen today for: Acute hypoxemic respiratory failure; Adan. Pneumonia (CAP); PUI COVID-19 infection; AE-CHF; AE-COPD; H/O CVA; HTN Seen and examined at bedside; 24 hour events reviewed; nursing and respiratory care staff consulted; no adverse overnight events reported to me; resting peacefully in bed; on t-piece now but again tired out overnight and rested on MVS; s/p prn Ativan now but with some hypoventilation; no N/V/F/C; secretions mild but persistent and tenacious at times Objective Vital Signs - 12hr 02/10/20 02/10/20 02/10/20 03:00 04:00 05:00 Temperature 98.8 F Pulse Rate 116 H 102 H 126 H Pulse Rate [ 101 H From Monitor] Respiratory 17 22 19 Rate Blood Pressure 84/60 102/61 101/70 O2 Sat by Pulse 96 99 95 Oximetry 02/10/20 02/10/20 02/10/20 05:46 06:00 07:00 Temperature Pulse Rate 124 H 123 H 105 H Pulse Rate [ From Monitor] Respiratory 24 17 Rate Blood Pressure 106/84 99/74 102/68 O2 Sat by Pulse 96 99 99 Oximetry 02/10/20 02/10/20 02/10/20 07:43 08:00 09:00 Temperature 98.1 F Pulse Rate 127 H 117 H Pulse Rate [ From Monitor] Respiratory 24 21 Rate Blood Pressure 106/79 118/76 O2 Sat by Pulse 97 100 100 Oximetry 02/10/20 02/10/20 02/10/20 10:00 11:00 12:00 Temperature Pulse Rate 132 H 135 H 149 H Pulse Rate [ From Monitor] Respiratory 20 19 21 Rate Blood Pressure 111/75 112/70 122/67 O2 Sat by Pulse 98 94 97 Oximetry 02/10/20 13:29 Temperature Pulse Rate 138 H Pulse Rate [ From Monitor] Respiratory Rate Blood Pressure 125/74 O2 Sat by Pulse Oximetry Constitutional: no acute distress, other (elelelderly and obese male, normocephalic with intermittently reduced respiratory effort at rest) Eyes: non-icteric ENT: oropharynx moist, other (+ midline tracheostomy) Neck: supple, no JVD Effort: mildly labored Ascultation: Bilateral: diminished breath sounds, rhonchi (and referred upper airway sounds), other (tracheal secretions mild) Percussion: Bilateral: not dull Cardiovascular: irregular rhythm, other (flow murmur) Gastrointestinal: normoactive bowel sounds, soft, non-tender, non-distended (protuberant), other (protuberant; PEG in place) Integumentary: normal Extremities: no cyanosis, pulses normal, no ischemia or petechiae, edema (bilateral upper ) Neurologic: non-focal exam (moves extremities), pupils equal and round, CN II- XII normal, motor strength normal and (weak) Psychiatric: mood appropriate, affect normal CBC and BMP: 02/10/20 07:40 02/10/20 07:40 ABG, PT/INR, D-dimer: ABG ABG pH 7.407 pH Units (7.350-7.450) 02/09/20 21:40 POC ABG pCO2 45.6 mmHg (32.0-48.0) 01/12/20 13:58 ABG pCO2 54.1 mm Hg 02/09/20 21:40 POC ABG pO2 76.6 mmHg (83-108) L 01/12/20 13:58 ABG pO2 59.8 mm Hg (80.0-90.0) L 02/09/20 21:40 POC ABG HCO3 31.2 01/12/20 13:58 ABG O2 Saturation 88.9 % (95.0-99.0) L 02/09/20 21:40 PT/INR, D-dimer PT 27.0 Sec. (12.2-14.9) H 02/07/20 15:03 INR 2.46 (0.87-1.13) H 02/07/20 15:03 Abnormal lab findings: Abnormal Labs 11/24/19 11/24/19 11/24/19 02:53 02:53 03:45 WBC 14.3 H RBC Hgb Hct MCHC RDW 17.2 H MCV MCH Lymph % (Auto) Gregg % (Auto) Gregg # Eos # Lymph # (Auto) Gregg # (Auto) Eos # (Auto) Seg Neutrophils % Seg Neuts % (Manual) Baso # (Auto) Lymphocytes % (Manual) Monocytes % (Manual) Eosinophils % (Manual) Basophils % (Manual) Seg Neutrophils # Seg Neutrophils # Man 8.3 H Lymphocytes # (Manual) Monocytes # (Manual) 0.9 H Eosinophils # (Manual) Nucleated RBC % Basophils # (Manual) PT INR APTT Heparin Anti-Xa Level ABG pH 7.313 L POC ABG pO2 ABG pO2 102.8 H ABG HCO3 ABG O2 Saturation ABG Base Excess -2.9 L POC ABG pCO2 ABG Hemoglobin ABG Oxyhemoglobin ABG Glucose Oxyhemoglobin 93.9 L Sodium Potassium Chloride Carbon Dioxide BUN Creatinine Glucose 195 H POC Glucose Lactic Acid Calcium Phosphorus Magnesium AST ALT Lactate Dehydrogenase Total Bilirubin Direct Bilirubin CK-MB (CK-2) 4.3 H C-Reactive Protein NT-Pro-B Natriuret Pep 1181 H Total Protein Albumin Arterial Blood Glucose Urine WBC (Auto) Urine Creatinine 11/24/19 11/24/19 11/24/19 04:53 04:53 10:37 WBC RBC Hgb Hct MCHC RDW MCV MCH Lymph % (Auto) Gregg % (Auto) Gregg # Eos # Lymph # (Auto) Gregg # (Auto) Eos # (Auto) Seg Neutrophils % Seg Neuts % (Manual) Baso # (Auto) Lymphocytes % (Manual) Monocytes % (Manual) Eosinophils % (Manual) Basophils % (Manual) Seg Neutrophils # Seg Neutrophils # Man Lymphocytes # (Manual) Monocytes # (Manual) Eosinophils # (Manual) Nucleated RBC % Basophils # (Manual) PT INR APTT Heparin Anti-Xa Level ABG pH POC ABG pO2 ABG pO2 ABG HCO3 ABG O2 Saturation ABG Base Excess POC ABG pCO2 ABG Hemoglobin ABG Oxyhemoglobin ABG Glucose Oxyhemoglobin Sodium Potassium Chloride Carbon Dioxide BUN Creatinine Glucose 162 H POC Glucose Lactic Acid 2.40 H* 2.50 H* Calcium Phosphorus Magnesium AST ALT Lactate Dehydrogenase 240 H Total Bilirubin Direct Bilirubin CK-MB (CK-2) C-Reactive Protein NT-Pro-B Natriuret Pep Total Protein Albumin Arterial Blood Glucose Urine WBC (Auto) Urine Creatinine 11/24/19 11/24/19 11/24/19 12:21 14:50 19:54 WBC RBC Hgb Hct MCHC RDW MCV MCH Lymph % (Auto) Gregg % (Auto) Gregg # Eos # Lymph # (Auto) Gregg # (Auto) Eos # (Auto) Seg Neutrophils % Seg Neuts % (Manual) Baso # (Auto) Lymphocytes % (Manual) Monocytes % (Manual) Eosinophils % (Manual) Basophils % (Manual) Seg Neutrophils # Seg Neutrophils # Man Lymphocytes # (Manual) Monocytes # (Manual) Eosinophils # (Manual) Nucleated RBC % Basophils # (Manual) PT INR APTT Heparin Anti-Xa Level ABG pH POC ABG pO2 ABG pO2 ABG HCO3 ABG O2 Saturation ABG Base Excess POC ABG pCO2 ABG Hemoglobin ABG Oxyhemoglobin ABG Glucose Oxyhemoglobin Sodium Potassium Chloride Carbon Dioxide BUN Creatinine Glucose POC Glucose 145 H 143 H 124 H Lactic Acid Calcium Phosphorus Magnesium AST ALT Lactate Dehydrogenase Total Bilirubin Direct Bilirubin CK-MB (CK-2) C-Reactive Protein NT-Pro-B Natriuret Pep Total Protein Albumin Arterial Blood Glucose Urine WBC (Auto) Urine Creatinine 11/25/19 11/25/19 11/25/19 00:18 03:18 05:11 WBC 13.7 H RBC Hgb Hct MCHC RDW 17.1 H MCV MCH Lymph % (Auto) 10.8 L Gregg % (Auto) 8.7 H Gregg # 1.2 H Eos # Lymph # (Auto) Gregg # (Auto) Eos # (Auto) Seg Neutrophils % 80.2 H Seg Neuts % (Manual) Baso # (Auto) Lymphocytes % (Manual) Monocytes % (Manual) Eosinophils % (Manual) Basophils % (Manual) Seg Neutrophils # 11.0 H Seg Neutrophils # Man Lymphocytes # (Manual) Monocytes # (Manual) Eosinophils # (Manual) Nucleated RBC % Basophils # (Manual) PT INR APTT Heparin Anti-Xa Level ABG pH 7.333 L POC ABG pO2 ABG pO2 61.2 L ABG HCO3 ABG O2 Saturation 90.2 L ABG Base Excess POC ABG pCO2 ABG Hemoglobin 13.7 L ABG Oxyhemoglobin ABG Glucose Oxyhemoglobin 88.2 L Sodium Potassium Chloride Carbon Dioxide BUN Creatinine Glucose POC Glucose 109 H Lactic Acid Calcium Phosphorus Magnesium AST ALT Lactate Dehydrogenase Total Bilirubin Direct Bilirubin CK-MB (CK-2) C-Reactive Protein NT-Pro-B Natriuret Pep Total Protein Albumin Arterial Blood Glucose Urine WBC (Auto) Urine Creatinine 11/25/19 11/25/19 11/26/19 05:11 11:40 03:12 WBC RBC Hgb Hct MCHC RDW MCV MCH Lymph % (Auto) Gregg % (Auto) Gregg # Eos # Lymph # (Auto) Gregg # (Auto) Eos # (Auto) Seg Neutrophils % Seg Neuts % (Manual) Baso # (Auto) Lymphocytes % (Manual) Monocytes % (Manual) Eosinophils % (Manual) Basophils % (Manual) Seg Neutrophils # Seg Neutrophils # Man Lymphocytes # (Manual) Monocytes # (Manual) Eosinophils # (Manual) Nucleated RBC % Basophils # (Manual) PT INR APTT Heparin Anti-Xa Level ABG pH POC ABG pO2 ABG pO2 155.1 H ABG HCO3 27.8 H ABG O2 Saturation ABG Base Excess POC ABG pCO2 ABG Hemoglobin 12.2 L ABG Oxyhemoglobin ABG Glucose Oxyhemoglobin Sodium Potassium Chloride Carbon Dioxide BUN 23 H Creatinine Glucose 110 H POC Glucose 108 H Lactic Acid Calcium Phosphorus Magnesium AST ALT Lactate Dehydrogenase Total Bilirubin Direct Bilirubin CK-MB (CK-2) C-Reactive Protein NT-Pro-B Natriuret Pep Total Protein Albumin Arterial Blood Glucose Urine WBC (Auto) Urine Creatinine 11/26/19 11/26/19 11/26/19 06:17 10:43 10:43 WBC 11.4 H RBC Hgb Hct MCHC RDW 17.1 H MCV MCH Lymph % (Auto) Gregg % (Auto) Gregg # Eos # Lymph # (Auto) Gregg # (Auto) Eos # (Auto) Seg Neutrophils % Seg Neuts % (Manual) Baso # (Auto) Lymphocytes % (Manual) Monocytes % (Manual) Eosinophils % (Manual) Basophils % (Manual) Seg Neutrophils # Seg Neutrophils # Man Lymphocytes # (Manual) Monocytes # (Manual) Eosinophils # (Manual) Nucleated RBC % Basophils # (Manual) PT INR APTT Heparin Anti-Xa Level ABG pH POC ABG pO2 ABG pO2 ABG HCO3 ABG O2 Saturation ABG Base Excess POC ABG pCO2 ABG Hemoglobin ABG Oxyhemoglobin ABG Glucose Oxyhemoglobin Sodium Potassium Chloride Carbon Dioxide BUN 29 H Creatinine Glucose POC Glucose 107 H Lactic Acid Calcium Phosphorus Magnesium AST ALT Lactate Dehydrogenase Total Bilirubin Direct Bilirubin CK-MB (CK-2) C-Reactive Protein NT-Pro-B Natriuret Pep Total Protein Albumin Arterial Blood Glucose Urine WBC (Auto) Urine Creatinine 09/03/20 09/04/20 09/04/20 17:11 01:53 04:11 WBC RBC Hgb Hct MCHC RDW MCV MCH Lymph % (Auto) Gregg % (Auto) Gregg # Eos # Lymph # (Auto) Gregg # (Auto) Eos # (Auto) Seg Neutrophils % Seg Neuts % (Manual) Baso # (Auto) Lymphocytes % (Manual) Monocytes % (Manual) Eosinophils % (Manual) Basophils % (Manual) Seg Neutrophils # Seg Neutrophils # Man Lymphocytes # (Manual) Monocytes # (Manual) Eosinophils # (Manual) Nucleated RBC % Basophils # (Manual) PT INR APTT Heparin Anti-Xa Level ABG pH POC ABG pO2 ABG pO2 ABG HCO3 29.2 H ABG O2 Saturation ABG Base Excess 3.4 H POC ABG pCO2 ABG Hemoglobin 13.3 L ABG Oxyhemoglobin ABG Glucose Oxyhemoglobin 94.5 L Sodium Potassium Chloride Carbon Dioxide BUN Creatinine Glucose POC Glucose 113 H 108 H Lactic Acid Calcium Phosphorus Magnesium AST ALT Lactate Dehydrogenase Total Bilirubin Direct Bilirubin CK-MB (CK-2) C-Reactive Protein NT-Pro-B Natriuret Pep Total Protein Albumin Arterial Blood Glucose Urine WBC (Auto) Urine Creatinine 11/27/19 11/28/19 11/28/19 05:27 05:00 05:25 WBC RBC Hgb Hct MCHC RDW MCV MCH Lymph % (Auto) Gregg % (Auto) Gregg # Eos # Lymph # (Auto) Gregg # (Auto) Eos # (Auto) Seg Neutrophils % Seg Neuts % (Manual) Baso # (Auto) Lymphocytes % (Manual) Monocytes % (Manual) Eosinophils % (Manual) Basophils % (Manual) Seg Neutrophils # Seg Neutrophils # Man Lymphocytes # (Manual) Monocytes # (Manual) Eosinophils # (Manual) Nucleated RBC % Basophils # (Manual) PT INR APTT Heparin Anti-Xa Level ABG pH POC ABG pO2 68.1 L ABG pO2 ABG HCO3 ABG O2 Saturation ABG Base Excess POC ABG pCO2 ABG Hemoglobin ABG Oxyhemoglobin 91.2 L ABG Glucose Oxyhemoglobin Sodium Potassium Chloride Carbon Dioxide BUN Creatinine Glucose POC Glucose 111 H 110 H Lactic Acid Calcium Phosphorus Magnesium AST ALT Lactate Dehydrogenase Total Bilirubin Direct Bilirubin CK-MB (CK-2) C-Reactive Protein NT-Pro-B Natriuret Pep Total Protein Albumin Arterial Blood Glucose Urine WBC (Auto) Urine Creatinine 11/28/19 11/28/19 11/28/19 12:08 13:47 13:47 WBC 11.3 H RBC Hgb Hct MCHC RDW 16.1 H MCV MCH Lymph % (Auto) Gregg % (Auto) 9.9 H Gregg # 1.1 H Eos # Lymph # (Auto) Gregg # (Auto) Eos # (Auto) Seg Neutrophils % 71.4 H Seg Neuts % (Manual) Baso # (Auto) Lymphocytes % (Manual) Monocytes % (Manual) Eosinophils % (Manual) Basophils % (Manual) Seg Neutrophils # 8.1 H Seg Neutrophils # Man Lymphocytes # (Manual) Monocytes # (Manual) Eosinophils # (Manual) Nucleated RBC % Basophils # (Manual) PT INR APTT Heparin Anti-Xa Level ABG pH POC ABG pO2 ABG pO2 ABG HCO3 ABG O2 Saturation ABG Base Excess POC ABG pCO2 ABG Hemoglobin ABG Oxyhemoglobin ABG Glucose Oxyhemoglobin Sodium Potassium Chloride Carbon Dioxide BUN 23 H Creatinine Glucose 123 H POC Glucose 112 H Lactic Acid Calcium Phosphorus Magnesium AST ALT Lactate Dehydrogenase Total Bilirubin Direct Bilirubin CK-MB (CK-2) C-Reactive Protein NT-Pro-B Natriuret Pep Total Protein Albumin 3.7 L Arterial Blood Glucose Urine WBC (Auto) Urine Creatinine 11/28/19 11/29/19 11/29/19 17:26 03:55 17:04 WBC RBC Hgb Hct MCHC RDW MCV MCH Lymph % (Auto) Gregg % (Auto) Gregg # Eos # Lymph # (Auto) Gregg # (Auto) Eos # (Auto) Seg Neutrophils % Seg Neuts % (Manual) Baso # (Auto) Lymphocytes % (Manual) Monocytes % (Manual) Eosinophils % (Manual) Basophils % (Manual) Seg Neutrophils # Seg Neutrophils # Man Lymphocytes # (Manual) Monocytes # (Manual) Eosinophils # (Manual) Nucleated RBC % Basophils # (Manual) PT INR APTT Heparin Anti-Xa Level ABG pH POC ABG pO2 ABG pO2 65.7 L ABG HCO3 28.3 H ABG O2 Saturation 93.9 L ABG Base Excess 3.6 H POC ABG pCO2 ABG Hemoglobin 13.3 L ABG Oxyhemoglobin ABG Glucose Oxyhemoglobin 91.5 L Sodium Potassium Chloride Carbon Dioxide BUN Creatinine Glucose POC Glucose 123 H 119 H Lactic Acid Calcium Phosphorus Magnesium AST ALT Lactate Dehydrogenase Total Bilirubin Direct Bilirubin CK-MB (CK-2) C-Reactive Protein NT-Pro-B Natriuret Pep Total Protein Albumin Arterial Blood Glucose Urine WBC (Auto) Urine Creatinine 11/30/19 11/30/19 11/30/19 04:17 04:17 04:56 WBC 13.4 H RBC Hgb Hct MCHC RDW 15.6 H MCV MCH Lymph % (Auto) Gregg % (Auto) Gregg # Eos # Lymph # (Auto) Gregg # (Auto) Eos # (Auto) Seg Neutrophils % Seg Neuts % (Manual) Baso # (Auto) Lymphocytes % (Manual) Monocytes % (Manual) Eosinophils % (Manual) Basophils % (Manual) Seg Neutrophils # Seg Neutrophils # Man Lymphocytes # (Manual) Monocytes # (Manual) Eosinophils # (Manual) Nucleated RBC % Basophils # (Manual) PT INR APTT Heparin Anti-Xa Level ABG pH POC ABG pO2 ABG pO2 56.3 L ABG HCO3 29.3 H ABG O2 Saturation 91.5 L ABG Base Excess 4.7 H POC ABG pCO2 ABG Hemoglobin 12.1 L ABG Oxyhemoglobin ABG Glucose Oxyhemoglobin 89.2 L Sodium 147 H Potassium Chloride Carbon Dioxide BUN 30 H Creatinine Glucose 124 H POC Glucose Lactic Acid Calcium Phosphorus Magnesium AST ALT Lactate Dehydrogenase Total Bilirubin Direct Bilirubin CK-MB (CK-2) C-Reactive Protein NT-Pro-B Natriuret Pep Total Protein Albumin 3.8 L Arterial Blood Glucose Urine WBC (Auto) Urine Creatinine 11/30/19 11/30/19 11/30/19 05:51 11:54 18:17 WBC RBC Hgb Hct MCHC RDW MCV MCH Lymph % (Auto) Gregg % (Auto) Gregg # Eos # Lymph # (Auto) Gregg # (Auto) Eos # (Auto) Seg Neutrophils % Seg Neuts % (Manual) Baso # (Auto) Lymphocytes % (Manual) Monocytes % (Manual) Eosinophils % (Manual) Basophils % (Manual) Seg Neutrophils # Seg Neutrophils # Man Lymphocytes # (Manual) Monocytes # (Manual) Eosinophils # (Manual) Nucleated RBC % Basophils # (Manual) PT INR APTT Heparin Anti-Xa Level ABG pH POC ABG pO2 ABG pO2 ABG HCO3 ABG O2 Saturation ABG Base Excess POC ABG pCO2 ABG Hemoglobin ABG Oxyhemoglobin ABG Glucose Oxyhemoglobin Sodium Potassium Chloride Carbon Dioxide BUN Creatinine Glucose POC Glucose 127 H 115 H 143 H Lactic Acid Calcium Phosphorus Magnesium AST ALT Lactate Dehydrogenase Total Bilirubin Direct Bilirubin CK-MB (CK-2) C-Reactive Protein NT-Pro-B Natriuret Pep Total Protein Albumin Arterial Blood Glucose Urine WBC (Auto) Urine Creatinine 12/01/19 12/01/19 12/01/19 01:18 05:22 12:16 WBC RBC Hgb Hct MCHC RDW MCV MCH Lymph % (Auto) Gregg % (Auto) Gregg # Eos # Lymph # (Auto) Gregg # (Auto) Eos # (Auto) Seg Neutrophils % Seg Neuts % (Manual) Baso # (Auto) Lymphocytes % (Manual) Monocytes % (Manual) Eosinophils % (Manual) Basophils % (Manual) Seg Neutrophils # Seg Neutrophils # Man Lymphocytes # (Manual) Monocytes # (Manual) Eosinophils # (Manual) Nucleated RBC % Basophils # (Manual) PT INR APTT Heparin Anti-Xa Level ABG pH POC ABG pO2 ABG pO2 ABG HCO3 ABG O2 Saturation ABG Base Excess POC ABG pCO2 ABG Hemoglobin ABG Oxyhemoglobin ABG Glucose Oxyhemoglobin Sodium Potassium 3.5 L Chloride 107.8 H Carbon Dioxide BUN 37 H Creatinine Glucose 157 H POC Glucose 118 H 148 H Lactic Acid Calcium 8.2 L D Phosphorus Magnesium AST 48 H ALT 60 H Lactate Dehydrogenase 194 H Total Bilirubin Direct Bilirubin CK-MB (CK-2) C-Reactive Protein 8.50 H NT-Pro-B Natriuret Pep Total Protein 5.5 L Albumin 2.8 L Arterial Blood Glucose Urine WBC (Auto) Urine Creatinine 12/01/19 12/02/19 12/02/19 18:04 00:05 05:16 WBC 11.4 H RBC Hgb Hct MCHC RDW 15.9 H MCV MCH Lymph % (Auto) Gregg % (Auto) 9.9 H Gregg # 1.1 H Eos # Lymph # (Auto) Gregg # (Auto) Eos # (Auto) Seg Neutrophils % 70.3 H Seg Neuts % (Manual) Baso # (Auto) Lymphocytes % (Manual) Monocytes % (Manual) Eosinophils % (Manual) Basophils % (Manual) Seg Neutrophils # 8.0 H Seg Neutrophils # Man Lymphocytes # (Manual) Monocytes # (Manual) Eosinophils # (Manual) Nucleated RBC % Basophils # (Manual) PT INR APTT Heparin Anti-Xa Level ABG pH POC ABG pO2 ABG pO2 ABG HCO3 ABG O2 Saturation ABG Base Excess POC ABG pCO2 ABG Hemoglobin ABG Oxyhemoglobin ABG Glucose Oxyhemoglobin Sodium Potassium Chloride Carbon Dioxide BUN Creatinine Glucose POC Glucose 143 H 107 H Lactic Acid Calcium Phosphorus Magnesium AST ALT Lactate Dehydrogenase Total Bilirubin Direct Bilirubin CK-MB (CK-2) C-Reactive Protein NT-Pro-B Natriuret Pep Total Protein Albumin Arterial Blood Glucose Urine WBC (Auto) Urine Creatinine 12/02/19 12/02/19 12/02/19 05:16 06:03 11:52 WBC RBC Hgb Hct MCHC RDW MCV MCH Lymph % (Auto) Gregg % (Auto) Gregg # Eos # Lymph # (Auto) Gregg # (Auto) Eos # (Auto) Seg Neutrophils % Seg Neuts % (Manual) Baso # (Auto) Lymphocytes % (Manual) Monocytes % (Manual) Eosinophils % (Manual) Basophils % (Manual) Seg Neutrophils # Seg Neutrophils # Man Lymphocytes # (Manual) Monocytes # (Manual) Eosinophils # (Manual) Nucleated RBC % Basophils # (Manual) PT INR APTT Heparin Anti-Xa Level ABG pH POC ABG pO2 ABG pO2 ABG HCO3 ABG O2 Saturation ABG Base Excess POC ABG pCO2 ABG Hemoglobin ABG Oxyhemoglobin ABG Glucose Oxyhemoglobin Sodium 146 H Potassium Chloride Carbon Dioxide BUN 28 H Creatinine Glucose 123 H POC Glucose 110 H 152 H Lactic Acid Calcium Phosphorus Magnesium AST ALT Lactate Dehydrogenase Total Bilirubin Direct Bilirubin CK-MB (CK-2) C-Reactive Protein NT-Pro-B Natriuret Pep Total Protein Albumin Arterial Blood Glucose Urine WBC (Auto) Urine Creatinine 12/02/19 12/02/19 12/02/19 12:58 17:58 23:36 WBC RBC Hgb Hct MCHC RDW MCV MCH Lymph % (Auto) Gregg % (Auto) Gregg # Eos # Lymph # (Auto) Gregg # (Auto) Eos # (Auto) Seg Neutrophils % Seg Neuts % (Manual) Baso # (Auto) Lymphocytes % (Manual) Monocytes % (Manual) Eosinophils % (Manual) Basophils % (Manual) Seg Neutrophils # Seg Neutrophils # Man Lymphocytes # (Manual) Monocytes # (Manual) Eosinophils # (Manual) Nucleated RBC % Basophils # (Manual) PT INR APTT Heparin Anti-Xa Level ABG pH POC ABG pO2 78.1 L ABG pO2 ABG HCO3 ABG O2 Saturation ABG Base Excess POC ABG pCO2 ABG Hemoglobin ABG Oxyhemoglobin ABG Glucose Oxyhemoglobin Sodium Potassium Chloride Carbon Dioxide BUN Creatinine Glucose POC Glucose 120 H 123 H Lactic Acid Calcium Phosphorus Magnesium AST ALT Lactate Dehydrogenase Total Bilirubin Direct Bilirubin CK-MB (CK-2) C-Reactive Protein NT-Pro-B Natriuret Pep Total Protein Albumin Arterial Blood Glucose Urine WBC (Auto) Urine Creatinine 12/03/19 12/03/19 12/03/19 06:03 06:14 11:46 WBC RBC Hgb Hct MCHC RDW MCV MCH Lymph % (Auto) Gregg % (Auto) Gregg # Eos # Lymph # (Auto) Gregg # (Auto) Eos # (Auto) Seg Neutrophils % Seg Neuts % (Manual) Baso # (Auto) Lymphocytes % (Manual) Monocytes % (Manual) Eosinophils % (Manual) Basophils % (Manual) Seg Neutrophils # Seg Neutrophils # Man Lymphocytes # (Manual) Monocytes # (Manual) Eosinophils # (Manual) Nucleated RBC % Basophils # (Manual) PT INR APTT Heparin Anti-Xa Level ABG pH POC ABG pO2 ABG pO2 ABG HCO3 ABG O2 Saturation ABG Base Excess POC ABG pCO2 ABG Hemoglobin ABG Oxyhemoglobin ABG Glucose Oxyhemoglobin Sodium Potassium Chloride Carbon Dioxide BUN Creatinine Glucose POC Glucose 142 H 130 H Lactic Acid Calcium Phosphorus Magnesium AST ALT Lactate Dehydrogenase Total Bilirubin Direct Bilirubin CK-MB (CK-2) C-Reactive Protein NT-Pro-B Natriuret Pep Total Protein Albumin Arterial Blood Glucose Urine WBC (Auto) 8.0 H Urine Creatinine 12/03/19 12/03/19 12/04/19 15:50 17:39 00:04 WBC RBC Hgb Hct MCHC RDW MCV MCH Lymph % (Auto) Gregg % (Auto) Gregg # Eos # Lymph # (Auto) Gregg # (Auto) Eos # (Auto) Seg Neutrophils % Seg Neuts % (Manual) Baso # (Auto) Lymphocytes % (Manual) Monocytes % (Manual) Eosinophils % (Manual) Basophils % (Manual) Seg Neutrophils # Seg Neutrophils # Man Lymphocytes # (Manual) Monocytes # (Manual) Eosinophils # (Manual) Nucleated RBC % Basophils # (Manual) PT INR APTT Heparin Anti-Xa Level ABG pH POC ABG pO2 ABG pO2 ABG HCO3 ABG O2 Saturation ABG Base Excess POC ABG pCO2 ABG Hemoglobin ABG Oxyhemoglobin ABG Glucose Oxyhemoglobin Sodium Potassium Chloride Carbon Dioxide BUN Creatinine Glucose POC Glucose 146 H 133 H Lactic Acid Calcium Phosphorus 2.40 L Magnesium AST ALT Lactate Dehydrogenase Total Bilirubin Direct Bilirubin CK-MB (CK-2) C-Reactive Protein NT-Pro-B Natriuret Pep Total Protein Albumin Arterial Blood Glucose Urine WBC (Auto) Urine Creatinine 12/04/19 12/04/19 12/04/19 03:58 03:58 05:22 WBC 12.5 H RBC Hgb 11.2 L Hct 35.2 L MCHC RDW 16.0 H MCV MCH Lymph % (Auto) Gregg % (Auto) 9.6 H Gregg # 1.2 H Eos # 0.5 H Lymph # (Auto) Gregg # (Auto) Eos # (Auto) Seg Neutrophils % Seg Neuts % (Manual) Baso # (Auto) Lymphocytes % (Manual) Monocytes % (Manual) Eosinophils % (Manual) Basophils % (Manual) Seg Neutrophils # 8.6 H Seg Neutrophils # Man Lymphocytes # (Manual) Monocytes # (Manual) Eosinophils # (Manual) Nucleated RBC % Basophils # (Manual) PT INR APTT Heparin Anti-Xa Level ABG pH POC ABG pO2 ABG pO2 ABG HCO3 ABG O2 Saturation ABG Base Excess POC ABG pCO2 ABG Hemoglobin ABG Oxyhemoglobin ABG Glucose Oxyhemoglobin Sodium 146 H Potassium Chloride 108.6 H Carbon Dioxide BUN 30 H Creatinine 0.7 L Glucose 121 H POC Glucose 132 H Lactic Acid Calcium Phosphorus Magnesium AST ALT Lactate Dehydrogenase Total Bilirubin Direct Bilirubin CK-MB (CK-2) C-Reactive Protein NT-Pro-B Natriuret Pep Total Protein Albumin Arterial Blood Glucose Urine WBC (Auto) Urine Creatinine 12/04/19 12/04/19 12/05/19 13:26 18:43 00:19 WBC RBC Hgb Hct MCHC RDW MCV MCH Lymph % (Auto) [place] % (Auto) [place] # Eos # Lymph # (Auto) [place] # (Auto) Eos # (Auto) Seg Neutrophils % Seg Neuts % (Manual) Baso # (Auto) Lymphocytes % (Manual) Monocytes % (Manual) Eosinophils % (Manual) Basophils % (Manual) Seg Neutrophils # Seg Neutrophils # Man Lymphocytes # (Manual) Monocytes # (Manual) Eosinophils # (Manual) Nucleated RBC % Basophils # (Manual) PT INR APTT Heparin Anti-Xa Level ABG pH POC ABG pO2 ABG pO2 ABG HCO3 ABG O2 Saturation ABG Base Excess POC ABG pCO2 ABG Hemoglobin ABG Oxyhemoglobin ABG Glucose Oxyhemoglobin Sodium Potassium Chloride Carbon Dioxide BUN Creatinine Glucose POC Glucose 185 H 156 H 150 H Lactic Acid Calcium Phosphorus Magnesium AST ALT Lactate Dehydrogenase Total Bilirubin Direct Bilirubin CK-MB (CK-2) C-Reactive Protein NT-Pro-B Natriuret Pep Total Protein Albumin Arterial Blood Glucose Urine WBC (Auto) Urine Creatinine 12/05/19 12/05/19 12/05/19 03:37 03:37 05:14 WBC 16.3 H RBC Hgb 11.4 L Hct MCHC RDW 15.6 H MCV MCH Lymph % (Auto) 9.9 L [place] % (Auto) 9.7 H [place] # 1.6 H Eos # Lymph # (Auto) [place] # (Auto) Eos # (Auto) Seg Neutrophils % 78.0 H Seg Neuts % (Manual) Baso # (Auto) Lymphocytes % (Manual) Monocytes % (Manual) Eosinophils % (Manual) Basophils % (Manual) Seg Neutrophils # 12.7 H Seg Neutrophils # Man Lymphocytes # (Manual) Monocytes # (Manual) Eosinophils # (Manual) Nucleated RBC % Basophils # (Manual) PT INR APTT Heparin Anti-Xa Level ABG pH POC ABG pO2 ABG pO2 ABG HCO3 ABG O2 Saturation ABG Base Excess POC ABG pCO2 ABG Hemoglobin ABG Oxyhemoglobin ABG Glucose Oxyhemoglobin Sodium 146 H Potassium Chloride 107.2 H Carbon Dioxide BUN 27 H Creatinine 0.7 L Glucose 171 H POC Glucose 168 H Lactic Acid Calcium Phosphorus Magnesium AST ALT Lactate Dehydrogenase Total Bilirubin Direct Bilirubin CK-MB (CK-2) C-Reactive Protein NT-Pro-B Natriuret Pep Total Protein Albumin Arterial Blood Glucose Urine WBC (Auto) Urine Creatinine 12/05/19 12/05/19 12/05/19 12:31 18:10 23:58 WBC RBC Hgb Hct MCHC RDW MCV MCH Lymph % (Auto) [place] % (Auto) [place] # Eos # Lymph # (Auto) [place] # (Auto) Eos # (Auto) Seg Neutrophils % Seg Neuts % (Manual) Baso # (Auto) Lymphocytes % (Manual) Monocytes % (Manual) Eosinophils % (Manual) Basophils % (Manual) Seg Neutrophils # Seg Neutrophils # Man Lymphocytes # (Manual) Monocytes # (Manual) Eosinophils # (Manual) Nucleated RBC % Basophils # (Manual) PT INR APTT Heparin Anti-Xa Level ABG pH POC ABG pO2 ABG pO2 ABG HCO3 ABG O2 Saturation ABG Base Excess POC ABG pCO2 ABG Hemoglobin ABG Oxyhemoglobin ABG Glucose Oxyhemoglobin Sodium Potassium Chloride Carbon Dioxide BUN Creatinine Glucose POC Glucose 159 H 198 H 115 H Lactic Acid Calcium Phosphorus Magnesium AST ALT Lactate Dehydrogenase Total Bilirubin Direct Bilirubin CK-MB (CK-2) C-Reactive Protein NT-Pro-B Natriuret Pep Total Protein Albumin Arterial Blood Glucose Urine WBC (Auto) Urine Creatinine 12/06/19 12/06/19 12/06/19 05:24 05:24 05:25 WBC 14.9 H RBC Hgb 10.8 L Hct 34.0 L MCHC RDW 15.6 H MCV MCH Lymph % (Auto) 10.7 L [place] % (Auto) 8.3 H [place] # 1.2 H Eos # Lymph # (Auto) [place] # (Auto) Eos # (Auto) Seg Neutrophils % 78.7 H Seg Neuts % (Manual) Baso # (Auto) Lymphocytes % (Manual) Monocytes % (Manual) Eosinophils % (Manual) Basophils % (Manual) Seg Neutrophils # 11.7 H Seg Neutrophils # Man Lymphocytes # (Manual) Monocytes # (Manual) Eosinophils # (Manual) Nucleated RBC % Basophils # (Manual) PT INR APTT Heparin Anti-Xa Level ABG pH POC ABG pO2 ABG pO2 ABG HCO3 ABG O2 Saturation ABG Base Excess POC ABG pCO2 ABG Hemoglobin ABG Oxyhemoglobin ABG Glucose Oxyhemoglobin Sodium 148 H Potassium 5.1 H Chloride 107.6 H Carbon Dioxide BUN 27 H Creatinine 0.7 L Glucose 155 H POC Glucose 157 H Lactic Acid Calcium Phosphorus Magnesium AST ALT Lactate Dehydrogenase Total Bilirubin Direct Bilirubin CK-MB (CK-2) C-Reactive Protein NT-Pro-B Natriuret Pep Total Protein Albumin Arterial Blood Glucose Urine WBC (Auto) Urine Creatinine 12/07/19 12/07/19 12/07/19 00:13 05:34 11:33 WBC RBC Hgb Hct MCHC RDW MCV MCH Lymph % (Auto) [place] % (Auto) [place] # Eos # Lymph # (Auto) [place] # (Auto) Eos # (Auto) Seg Neutrophils % Seg Neuts % (Manual) Baso # (Auto) Lymphocytes % (Manual) Monocytes % (Manual) Eosinophils % (Manual) Basophils % (Manual) Seg Neutrophils # Seg Neutrophils # Man Lymphocytes # (Manual) Monocytes # (Manual) Eosinophils # (Manual) Nucleated RBC % Basophils # (Manual) PT INR APTT Heparin Anti-Xa Level ABG pH POC ABG pO2 ABG pO2 ABG HCO3 ABG O2 Saturation ABG Base Excess POC ABG pCO2 ABG Hemoglobin ABG Oxyhemoglobin ABG Glucose Oxyhemoglobin Sodium Potassium Chloride Carbon Dioxide BUN Creatinine Glucose POC Glucose 142 H 111 H 169 H Lactic Acid Calcium Phosphorus Magnesium AST ALT Lactate Dehydrogenase Total Bilirubin Direct Bilirubin CK-MB (CK-2) C-Reactive Protein NT-Pro-B Natriuret Pep Total Protein Albumin Arterial Blood Glucose Urine WBC (Auto) Urine Creatinine 12/07/19 12/07/19 12/07/19 12:41 13:25 18:19 WBC 12.4 H RBC 3.53 L Hgb 10.2 L Hct 32.1 L MCHC RDW 15.3 H MCV MCH Lymph % (Auto) 10.6 L [place] % (Auto) 7.8 H [place] # 1.0 H Eos # Lymph # (Auto) [place] # (Auto) Eos # (Auto) Seg Neutrophils % 77.6 H Seg Neuts % (Manual) Baso # (Auto) Lymphocytes % (Manual) Monocytes % (Manual) Eosinophils % (Manual) Basophils % (Manual) Seg Neutrophils # 9.6 H Seg Neutrophils # Man Lymphocytes # (Manual) Monocytes # (Manual) Eosinophils # (Manual) Nucleated RBC % Basophils # (Manual) PT INR APTT Heparin Anti-Xa Level ABG pH POC ABG pO2 ABG pO2 ABG HCO3 ABG O2 Saturation ABG Base Excess POC ABG pCO2 ABG Hemoglobin ABG Oxyhemoglobin ABG Glucose Oxyhemoglobin Sodium 149 H Potassium Chloride 108.4 H Carbon Dioxide BUN 26 H Creatinine 0.6 L Glucose 149 H POC Glucose 164 H Lactic Acid Calcium Phosphorus Magnesium 2.60 H AST 121 H ALT 145 H Lactate Dehydrogenase Total Bilirubin Direct Bilirubin CK-MB (CK-2) C-Reactive Protein NT-Pro-B Natriuret Pep Total Protein Albumin 2.6 L Arterial Blood Glucose Urine WBC (Auto) Urine Creatinine 12/07/19 12/08/19 12/08/19 22:25 00:02 03:55 WBC 13.3 H RBC 3.40 L Hgb 9.7 L Hct 30.8 L MCHC 31 L RDW 15.5 H MCV MCH Lymph % (Auto) [place] % (Auto) 8.1 H [place] # 1.1 H Eos # Lymph # (Auto) [place] # (Auto) Eos # (Auto) Seg Neutrophils % 73.0 H Seg Neuts % (Manual) Baso # (Auto) Lymphocytes % (Manual) Monocytes % (Manual) Eosinophils % (Manual) Basophils % (Manual) Seg Neutrophils # 9.7 H Seg Neutrophils # Man Lymphocytes # (Manual) Monocytes # (Manual) Eosinophils # (Manual) Nucleated RBC % Basophils # (Manual) PT INR APTT Heparin Anti-Xa Level 0.12 L ABG pH POC ABG pO2 ABG pO2 ABG HCO3 ABG O2 Saturation ABG Base Excess POC ABG pCO2 ABG Hemoglobin ABG Oxyhemoglobin ABG Glucose Oxyhemoglobin Sodium Potassium Chloride Carbon Dioxide BUN Creatinine Glucose POC Glucose 151 H Lactic Acid Calcium Phosphorus Magnesium AST ALT Lactate Dehydrogenase Total Bilirubin Direct Bilirubin CK-MB (CK-2) C-Reactive Protein NT-Pro-B Natriuret Pep Total Protein Albumin Arterial Blood Glucose Urine WBC (Auto) Urine Creatinine 12/08/19 12/08/19 12/08/19 03:55 05:21 06:01 WBC RBC Hgb Hct MCHC RDW MCV MCH Lymph % (Auto) [place] % (Auto) [place] # Eos # Lymph # (Auto) [place] # (Auto) Eos # (Auto) Seg Neutrophils % Seg Neuts % (Manual) Baso # (Auto) Lymphocytes % (Manual) Monocytes % (Manual) Eosinophils % (Manual) Basophils % (Manual) Seg Neutrophils # Seg Neutrophils # Man Lymphocytes # (Manual) Monocytes # (Manual) Eosinophils # (Manual) Nucleated RBC % Basophils # (Manual) PT INR APTT Heparin Anti-Xa Level 0.20 L ABG pH POC ABG pO2 ABG pO2 ABG HCO3 ABG O2 Saturation ABG Base Excess POC ABG pCO2 ABG Hemoglobin ABG Oxyhemoglobin ABG Glucose Oxyhemoglobin Sodium 149 H Potassium Chloride 108.0 H Carbon Dioxide BUN 28 H Creatinine 0.6 L Glucose 144 H POC Glucose 143 H Lactic Acid Calcium Phosphorus Magnesium AST 98 H ALT 145 H Lactate Dehydrogenase Total Bilirubin Direct Bilirubin CK-MB (CK-2) C-Reactive Protein NT-Pro-B Natriuret Pep Total Protein 6.0 L Albumin 2.4 L Arterial Blood Glucose Urine WBC (Auto) Urine Creatinine 12/08/19 12/08/19 12/08/19 12:08 18:11 23:53 WBC RBC Hgb Hct MCHC RDW MCV MCH Lymph % (Auto) [place] % (Auto) [place] # Eos # Lymph # (Auto) [place] # (Auto) Eos # (Auto) Seg Neutrophils % Seg Neuts % (Manual) Baso # (Auto) Lymphocytes % (Manual) Monocytes % (Manual) Eosinophils % (Manual) Basophils % (Manual) Seg Neutrophils # Seg Neutrophils # Man Lymphocytes # (Manual) Monocytes # (Manual) Eosinophils # (Manual) Nucleated RBC % Basophils # (Manual) PT INR APTT Heparin Anti-Xa Level ABG pH POC ABG pO2 ABG pO2 ABG HCO3 ABG O2 Saturation ABG Base Excess POC ABG pCO2 ABG Hemoglobin ABG Oxyhemoglobin ABG Glucose Oxyhemoglobin Sodium Potassium Chloride Carbon Dioxide BUN Creatinine Glucose POC Glucose 172 H 122 H 162 H Lactic Acid Calcium Phosphorus Magnesium AST ALT Lactate Dehydrogenase Total Bilirubin Direct Bilirubin CK-MB (CK-2) C-Reactive Protein NT-Pro-B Natriuret Pep Total Protein Albumin Arterial Blood Glucose Urine WBC (Auto) Urine Creatinine 12/09/19 12/09/19 12/09/19 04:03 04:03 05:53 WBC RBC Hgb 9.1 L Hct 28.9 L MCHC RDW MCV MCH Lymph % (Auto) [place] % (Auto) [place] # Eos # Lymph # (Auto) [place] # (Auto) Eos # (Auto) Seg Neutrophils % Seg Neuts % (Manual) Baso # (Auto) Lymphocytes % (Manual) Monocytes % (Manual) Eosinophils % (Manual) Basophils % (Manual) Seg Neutrophils # Seg Neutrophils # Man Lymphocytes # (Manual) Monocytes # (Manual) Eosinophils # (Manual) Nucleated RBC % Basophils # (Manual) PT INR APTT Heparin Anti-Xa Level 0.15 L ABG pH POC ABG pO2 ABG pO2 ABG HCO3 ABG O2 Saturation ABG Base Excess POC ABG pCO2 ABG Hemoglobin ABG Oxyhemoglobin ABG Glucose Oxyhemoglobin Sodium Potassium Chloride Carbon Dioxide BUN Creatinine Glucose POC Glucose 124 H Lactic Acid Calcium Phosphorus Magnesium AST ALT Lactate Dehydrogenase Total Bilirubin Direct Bilirubin CK-MB (CK-2) C-Reactive Protein NT-Pro-B Natriuret Pep Total Protein Albumin Arterial Blood Glucose Urine WBC (Auto) Urine Creatinine 12/09/19 12/09/19 12/10/19 09:43 12:41 00:13 WBC RBC Hgb Hct MCHC RDW MCV MCH Lymph % (Auto) [place] % (Auto) [place] # Eos # Lymph # (Auto) [place] # (Auto) Eos # (Auto) Seg Neutrophils % Seg Neuts % (Manual) Baso # (Auto) Lymphocytes % (Manual) Monocytes % (Manual) Eosinophils % (Manual) Basophils % (Manual) Seg Neutrophils # Seg Neutrophils # Man Lymphocytes # (Manual) Monocytes # (Manual) Eosinophils # (Manual) Nucleated RBC % Basophils # (Manual) PT INR APTT Heparin Anti-Xa Level ABG pH POC ABG pO2 ABG pO2 ABG HCO3 ABG O2 Saturation ABG Base Excess POC ABG pCO2 ABG Hemoglobin ABG Oxyhemoglobin ABG Glucose Oxyhemoglobin Sodium Potassium Chloride Carbon Dioxide BUN 25 H Creatinine 0.6 L Glucose 131 H POC Glucose 109 H 120 H Lactic Acid Calcium Phosphorus Magnesium AST ALT Lactate Dehydrogenase Total Bilirubin Direct Bilirubin CK-MB (CK-2) C-Reactive Protein NT-Pro-B Natriuret Pep Total Protein Albumin Arterial Blood Glucose Urine WBC (Auto) Urine Creatinine 12/10/19 12/10/19 12/10/19 04:14 04:14 12:00 WBC 13.3 H RBC 3.34 L Hgb 9.6 L Hct 30.4 L MCHC RDW 15.4 H MCV MCH Lymph % (Auto) [place] % (Auto) [place] # Eos # Lymph # (Auto) [place] # (Auto) Eos # (Auto) Seg Neutrophils % Seg Neuts % (Manual) 75.0 H Baso # (Auto) Lymphocytes % (Manual) 13.0 L Monocytes % (Manual) 8.0 H Eosinophils % (Manual) Basophils % (Manual) 2.0 H Seg Neutrophils # Seg Neutrophils # Man 10.0 H Lymphocytes # (Manual) Monocytes # (Manual) 1.1 H Eosinophils # (Manual) Nucleated RBC % Basophils # (Manual) 0.3 H PT INR APTT Heparin Anti-Xa Level ABG pH POC ABG pO2 ABG pO2 ABG HCO3 ABG O2 Saturation ABG Base Excess POC ABG pCO2 ABG Hemoglobin ABG Oxyhemoglobin ABG Glucose Oxyhemoglobin Sodium 147 H Potassium Chloride 108.3 H Carbon Dioxide BUN 21 H Creatinine 0.6 L Glucose 104 H POC Glucose 133 H Lactic Acid Calcium Phosphorus Magnesium AST ALT Lactate Dehydrogenase Total Bilirubin Direct Bilirubin CK-MB (CK-2) C-Reactive Protein NT-Pro-B Natriuret Pep Total Protein Albumin Arterial Blood Glucose Urine WBC (Auto) Urine Creatinine 12/10/19 12/10/19 12/11/19 18:44 21:20 00:08 WBC 14.9 H RBC 3.36 L Hgb 9.6 L Hct 30.5 L MCHC RDW 15.4 H MCV MCH Lymph % (Auto) [place] % (Auto) [place] # Eos # Lymph # (Auto) [place] # (Auto) Eos # (Auto) Seg Neutrophils % Seg Neuts % (Manual) Baso # (Auto) Lymphocytes % (Manual) Monocytes % (Manual) Eosinophils % (Manual) Basophils % (Manual) Seg Neutrophils # Seg Neutrophils # Man Lymphocytes # (Manual) Monocytes # (Manual) Eosinophils # (Manual) Nucleated RBC % Basophils # (Manual) PT INR APTT Heparin Anti-Xa Level ABG pH POC ABG pO2 ABG pO2 ABG HCO3 ABG O2 Saturation ABG Base Excess POC ABG pCO2 ABG Hemoglobin ABG Oxyhemoglobin ABG Glucose Oxyhemoglobin Sodium Potassium Chloride Carbon Dioxide BUN Creatinine Glucose POC Glucose 119 H 134 H Lactic Acid Calcium Phosphorus Magnesium AST ALT Lactate Dehydrogenase Total Bilirubin Direct Bilirubin CK-MB (CK-2) C-Reactive Protein NT-Pro-B Natriuret Pep Total Protein Albumin Arterial Blood Glucose Urine WBC (Auto) Urine Creatinine 12/11/19 12/11/19 12/11/19 03:54 07:28 08:36 WBC 11.9 H RBC 3.25 L Hgb 9.6 L Hct 29.2 L MCHC RDW 15.7 H MCV MCH Lymph % (Auto) [place] % (Auto) [place] # Eos # Lymph # (Auto) [place] # (Auto) Eos # (Auto) Seg Neutrophils % Seg Neuts % (Manual) Baso # (Auto) Lymphocytes % (Manual) Monocytes % (Manual) Eosinophils % (Manual) Basophils % (Manual) Seg Neutrophils # Seg Neutrophils # Man Lymphocytes # (Manual) Monocytes # (Manual) Eosinophils # (Manual) Nucleated RBC % Basophils # (Manual) PT INR APTT Heparin Anti-Xa Level 0.10 L 0.16 L ABG pH POC ABG pO2 ABG pO2 ABG HCO3 ABG O2 Saturation ABG Base Excess POC ABG pCO2 ABG Hemoglobin ABG Oxyhemoglobin ABG Glucose Oxyhemoglobin Sodium Potassium Chloride Carbon Dioxide BUN Creatinine Glucose POC Glucose Lactic Acid Calcium Phosphorus Magnesium AST ALT Lactate Dehydrogenase Total Bilirubin Direct Bilirubin CK-MB (CK-2) C-Reactive Protein NT-Pro-B Natriuret Pep Total Protein Albumin Arterial Blood Glucose Urine WBC (Auto) Urine Creatinine 12/11/19 12/11/19 12/11/19 08:36 11:45 17:15 WBC RBC Hgb Hct MCHC RDW MCV MCH Lymph % (Auto) [place] % (Auto) [place] # Eos # Lymph # (Auto) [place] # (Auto) Eos # (Auto) Seg Neutrophils % Seg Neuts % (Manual) Baso # (Auto) Lymphocytes % (Manual) Monocytes % (Manual) Eosinophils % (Manual) Basophils % (Manual) Seg Neutrophils # Seg Neutrophils # Man Lymphocytes # (Manual) Monocytes # (Manual) Eosinophils # (Manual) Nucleated RBC % Basophils # (Manual) PT INR APTT Heparin Anti-Xa Level ABG pH POC ABG pO2 ABG pO2 ABG HCO3 ABG O2 Saturation ABG Base Excess POC ABG pCO2 ABG Hemoglobin ABG Oxyhemoglobin ABG Glucose Oxyhemoglobin Sodium Potassium Chloride Carbon Dioxide BUN Creatinine 0.5 L Glucose 128 H POC Glucose 136 H 109 H Lactic Acid Calcium Phosphorus Magnesium AST ALT Lactate Dehydrogenase Total Bilirubin Direct Bilirubin CK-MB (CK-2) C-Reactive Protein NT-Pro-B Natriuret Pep Total Protein Albumin Arterial Blood Glucose Urine WBC (Auto) Urine Creatinine 12/12/19 12/12/19 12/12/19 00:03 05:53 05:53 WBC RBC Hgb 8.8 L Hct 27.6 L MCHC RDW MCV MCH Lymph % (Auto) [place] % (Auto) [place] # Eos # Lymph # (Auto) [place] # (Auto) Eos # (Auto) Seg Neutrophils % Seg Neuts % (Manual) Baso # (Auto) Lymphocytes % (Manual) Monocytes % (Manual) Eosinophils % (Manual) Basophils % (Manual) Seg Neutrophils # Seg Neutrophils # Man Lymphocytes # (Manual) Monocytes # (Manual) Eosinophils # (Manual) Nucleated RBC % Basophils # (Manual) PT INR APTT Heparin Anti-Xa Level 0.22 L ABG pH POC ABG pO2 ABG pO2 ABG HCO3 ABG O2 Saturation ABG Base Excess POC ABG pCO2 ABG Hemoglobin ABG Oxyhemoglobin ABG Glucose Oxyhemoglobin Sodium Potassium Chloride Carbon Dioxide BUN Creatinine Glucose POC Glucose 116 H Lactic Acid Calcium Phosphorus Magnesium AST ALT Lactate Dehydrogenase Total Bilirubin Direct Bilirubin CK-MB (CK-2) C-Reactive Protein NT-Pro-B Natriuret Pep Total Protein Albumin Arterial Blood Glucose Urine WBC (Auto) Urine Creatinine 12/12/19 12/12/19 12/12/19 09:38 12:18 17:44 WBC RBC Hgb Hct MCHC RDW MCV MCH Lymph % (Auto) [place] % (Auto) [place] # Eos # Lymph # (Auto) [place] # (Auto) Eos # (Auto) Seg Neutrophils % Seg Neuts % (Manual) Baso # (Auto) Lymphocytes % (Manual) Monocytes % (Manual) Eosinophils % (Manual) Basophils % (Manual) Seg Neutrophils # Seg Neutrophils # Man Lymphocytes # (Manual) Monocytes # (Manual) Eosinophils # (Manual) Nucleated RBC % Basophils # (Manual) PT INR APTT Heparin Anti-Xa Level ABG pH POC ABG pO2 ABG pO2 ABG HCO3 ABG O2 Saturation ABG Base Excess POC ABG pCO2 ABG Hemoglobin ABG Oxyhemoglobin ABG Glucose Oxyhemoglobin Sodium Potassium Chloride Carbon Dioxide BUN Creatinine Glucose POC Glucose 115 H 146 H 146 H Lactic Acid Calcium Phosphorus Magnesium AST ALT Lactate Dehydrogenase Total Bilirubin Direct Bilirubin CK-MB (CK-2) C-Reactive Protein NT-Pro-B Natriuret Pep Total Protein Albumin Arterial Blood Glucose Urine WBC (Auto) Urine Creatinine 12/12/19 12/13/19 12/13/19 23:33 05:32 05:32 WBC 13.1 H RBC 3.27 L Hgb 9.5 L Hct 29.3 L MCHC RDW 15.6 H MCV MCH Lymph % (Auto) [place] % (Auto) [place] # Eos # Lymph # (Auto) [place] # (Auto) Eos # (Auto) Seg Neutrophils % Seg Neuts % (Manual) 74.0 H Baso # (Auto) Lymphocytes % (Manual) 8.0 L Monocytes % (Manual) 9.0 H Eosinophils % (Manual) 5.0 H Basophils % (Manual) Seg Neutrophils # Seg Neutrophils # Man 9.7 H Lymphocytes # (Manual) 1.0 L Monocytes # (Manual) 1.2 H Eosinophils # (Manual) 0.7 H Nucleated RBC % Basophils # (Manual) PT INR APTT Heparin Anti-Xa Level 0.20 L ABG pH POC ABG pO2 ABG pO2 ABG HCO3 ABG O2 Saturation ABG Base Excess POC ABG pCO2 ABG Hemoglobin ABG Oxyhemoglobin ABG Glucose Oxyhemoglobin Sodium Potassium Chloride Carbon Dioxide BUN Creatinine Glucose POC Glucose 126 H Lactic Acid Calcium Phosphorus Magnesium AST ALT Lactate Dehydrogenase Total Bilirubin Direct Bilirubin CK-MB (CK-2) C-Reactive Protein NT-Pro-B Natriuret Pep Total Protein Albumin Arterial Blood Glucose Urine WBC (Auto) Urine Creatinine 12/13/19 12/13/19 12/13/19 05:32 05:46 11:57 WBC RBC Hgb Hct MCHC RDW MCV MCH Lymph % (Auto) [place] % (Auto) [place] # Eos # Lymph # (Auto) [place] # (Auto) Eos # (Auto) Seg Neutrophils % Seg Neuts % (Manual) Baso # (Auto) Lymphocytes % (Manual) Monocytes % (Manual) Eosinophils % (Manual) Basophils % (Manual) Seg Neutrophils # Seg Neutrophils # Man Lymphocytes # (Manual) Monocytes # (Manual) Eosinophils # (Manual) Nucleated RBC % Basophils # (Manual) PT INR APTT Heparin Anti-Xa Level ABG pH POC ABG pO2 ABG pO2 ABG HCO3 ABG O2 Saturation ABG Base Excess POC ABG pCO2 ABG Hemoglobin ABG Oxyhemoglobin ABG Glucose Oxyhemoglobin Sodium Potassium Chloride Carbon Dioxide 31 H BUN Creatinine 0.6 L Glucose 114 H POC Glucose 118 H 133 H Lactic Acid Calcium Phosphorus Magnesium AST ALT Lactate Dehydrogenase Total Bilirubin Direct Bilirubin CK-MB (CK-2) C-Reactive Protein NT-Pro-B Natriuret Pep Total Protein Albumin Arterial Blood Glucose Urine WBC (Auto) Urine Creatinine 12/13/19 12/13/19 12/14/19 17:44 23:46 05:32 WBC RBC Hgb Hct MCHC RDW MCV MCH Lymph % (Auto) [place] % (Auto) [place] # Eos # Lymph # (Auto) [place] # (Auto) Eos # (Auto) Seg Neutrophils % Seg Neuts % (Manual) Baso # (Auto) Lymphocytes % (Manual) Monocytes % (Manual) Eosinophils % (Manual) Basophils % (Manual) Seg Neutrophils # Seg Neutrophils # Man Lymphocytes # (Manual) Monocytes # (Manual) Eosinophils # (Manual) Nucleated RBC % Basophils # (Manual) PT INR APTT Heparin Anti-Xa Level ABG pH POC ABG pO2 ABG pO2 ABG HCO3 ABG O2 Saturation ABG Base Excess POC ABG pCO2 ABG Hemoglobin ABG Oxyhemoglobin ABG Glucose Oxyhemoglobin Sodium Potassium Chloride Carbon Dioxide BUN Creatinine Glucose POC Glucose 161 H 126 H 139 H Lactic Acid Calcium Phosphorus Magnesium AST ALT Lactate Dehydrogenase Total Bilirubin Direct Bilirubin CK-MB (CK-2) C-Reactive Protein NT-Pro-B Natriuret Pep Total Protein Albumin Arterial Blood Glucose Urine WBC (Auto) Urine Creatinine 12/14/19 12/14/19 12/14/19 06:03 06:03 09:37 WBC RBC Hgb 9.6 L Hct 30.4 L MCHC RDW MCV MCH Lymph % (Auto) [place] % (Auto) [place] # Eos # Lymph # (Auto) [place] # (Auto) Eos # (Auto) Seg Neutrophils % Seg Neuts % (Manual) Baso # (Auto) Lymphocytes % (Manual) Monocytes % (Manual) Eosinophils % (Manual) Basophils % (Manual) Seg Neutrophils # Seg Neutrophils # Man Lymphocytes # (Manual) Monocytes # (Manual) Eosinophils # (Manual) Nucleated RBC % Basophils # (Manual) PT INR APTT Heparin Anti-Xa Level 0.24 L ABG pH POC ABG pO2 ABG pO2 ABG HCO3 ABG O2 Saturation ABG Base Excess POC ABG pCO2 ABG Hemoglobin ABG Oxyhemoglobin ABG Glucose Oxyhemoglobin Sodium Potassium Chloride Carbon Dioxide BUN Creatinine 0.6 L Glucose 162 H POC Glucose Lactic Acid Calcium Phosphorus Magnesium AST 71 H ALT 118 H Lactate Dehydrogenase Total Bilirubin Direct Bilirubin CK-MB (CK-2) C-Reactive Protein NT-Pro-B Natriuret Pep Total Protein 6.2 L Albumin 2.3 L Arterial Blood Glucose Urine WBC (Auto) Urine Creatinine 12/14/19 12/14/19 12/15/19 12:06 18:18 00:19 WBC RBC Hgb Hct MCHC RDW MCV MCH Lymph % (Auto) [place] % (Auto) [place] # Eos # Lymph # (Auto) [place] # (Auto) Eos # (Auto) Seg Neutrophils % Seg Neuts % (Manual) Baso # (Auto) Lymphocytes % (Manual) Monocytes % (Manual) Eosinophils % (Manual) Basophils % (Manual) Seg Neutrophils # Seg Neutrophils # Man Lymphocytes # (Manual) Monocytes # (Manual) Eosinophils # (Manual) Nucleated RBC % Basophils # (Manual) PT INR APTT Heparin Anti-Xa Level ABG pH POC ABG pO2 ABG pO2 ABG HCO3 ABG O2 Saturation ABG Base Excess POC ABG pCO2 ABG Hemoglobin ABG Oxyhemoglobin ABG Glucose Oxyhemoglobin Sodium Potassium Chloride Carbon Dioxide BUN Creatinine Glucose POC Glucose 147 H 166 H 123 H Lactic Acid Calcium Phosphorus Magnesium AST ALT Lactate Dehydrogenase Total Bilirubin Direct Bilirubin CK-MB (CK-2) C-Reactive Protein NT-Pro-B Natriuret Pep Total Protein Albumin Arterial Blood Glucose Urine WBC (Auto) Urine Creatinine 12/15/19 12/15/19 12/15/19 05:28 05:29 05:29 WBC 14.9 H RBC 3.19 L Hgb 9.1 L Hct 28.7 L MCHC RDW 16.0 H MCV MCH Lymph % (Auto) [place] % (Auto) [place] # Eos # Lymph # (Auto) [place] # (Auto) Eos # (Auto) Seg Neutrophils % Seg Neuts % (Manual) Baso # (Auto) Lymphocytes % (Manual) Monocytes % (Manual) Eosinophils % (Manual) Basophils % (Manual) Seg Neutrophils # Seg Neutrophils # Man Lymphocytes # (Manual) Monocytes # (Manual) Eosinophils # (Manual) Nucleated RBC % Basophils # (Manual) PT INR APTT Heparin Anti-Xa Level 0.19 L ABG pH POC ABG pO2 ABG pO2 ABG HCO3 ABG O2 Saturation ABG Base Excess POC ABG pCO2 ABG Hemoglobin ABG Oxyhemoglobin ABG Glucose Oxyhemoglobin Sodium Potassium Chloride Carbon Dioxide BUN Creatinine 0.6 L Glucose 110 H POC Glucose Lactic Acid Calcium Phosphorus Magnesium AST ALT Lactate Dehydrogenase Total Bilirubin Direct Bilirubin CK-MB (CK-2) C-Reactive Protein NT-Pro-B Natriuret Pep Total Protein Albumin Arterial Blood Glucose Urine WBC (Auto) Urine Creatinine 12/15/19 12/15/19 12/15/19 05:53 11:50 17:26 WBC RBC Hgb Hct MCHC RDW MCV MCH Lymph % (Auto) Gregg % (Auto) Gregg # Eos # Lymph # (Auto) [place] # (Auto) Eos # (Auto) Seg Neutrophils % Seg Neuts % (Manual) Baso # (Auto) Lymphocytes % (Manual) Monocytes % (Manual) Eosinophils % (Manual) Basophils % (Manual) Seg Neutrophils # Seg Neutrophils # Man Lymphocytes # (Manual) Monocytes # (Manual) Eosinophils # (Manual) Nucleated RBC % Basophils # (Manual) PT INR APTT Heparin Anti-Xa Level ABG pH POC ABG pO2 ABG pO2 ABG HCO3 ABG O2 Saturation ABG Base Excess POC ABG pCO2 ABG Hemoglobin ABG Oxyhemoglobin ABG Glucose Oxyhemoglobin Sodium Potassium Chloride Carbon Dioxide BUN Creatinine Glucose POC Glucose 119 H 132 H 128 H Lactic Acid Calcium Phosphorus Magnesium AST ALT Lactate Dehydrogenase Total Bilirubin Direct Bilirubin CK-MB (CK-2) C-Reactive Protein NT-Pro-B Natriuret Pep Total Protein Albumin Arterial Blood Glucose Urine WBC (Auto) Urine Creatinine 12/15/19 12/16/19 12/16/19 23:11 05:30 05:46 WBC RBC Hgb 8.8 L Hct 27.9 L MCHC RDW MCV MCH Lymph % (Auto) [place] % (Auto) [place] # Eos # Lymph # (Auto) [place] # (Auto) Eos # (Auto) Seg Neutrophils % Seg Neuts % (Manual) Baso # (Auto) Lymphocytes % (Manual) Monocytes % (Manual) Eosinophils % (Manual) Basophils % (Manual) Seg Neutrophils # Seg Neutrophils # Man Lymphocytes # (Manual) Monocytes # (Manual) Eosinophils # (Manual) Nucleated RBC % Basophils # (Manual) PT INR APTT Heparin Anti-Xa Level ABG pH POC ABG pO2 ABG pO2 ABG HCO3 ABG O2 Saturation ABG Base Excess POC ABG pCO2 ABG Hemoglobin ABG Oxyhemoglobin ABG Glucose Oxyhemoglobin Sodium Potassium Chloride Carbon Dioxide BUN Creatinine Glucose POC Glucose 150 H 134 H Lactic Acid Calcium Phosphorus Magnesium AST ALT Lactate Dehydrogenase Total Bilirubin Direct Bilirubin CK-MB (CK-2) C-Reactive Protein NT-Pro-B Natriuret Pep Total Protein Albumin Arterial Blood Glucose Urine WBC (Auto) Urine Creatinine 12/16/19 12/16/19 12/16/19 05:46 05:46 11:44 WBC RBC Hgb Hct MCHC RDW MCV MCH Lymph % (Auto) [place] % (Auto) [place] # Eos # Lymph # (Auto) [place] # (Auto) Eos # (Auto) Seg Neutrophils % Seg Neuts % (Manual) Baso # (Auto) Lymphocytes % (Manual) Monocytes % (Manual) Eosinophils % (Manual) Basophils % (Manual) Seg Neutrophils # Seg Neutrophils # Man Lymphocytes # (Manual) Monocytes # (Manual) Eosinophils # (Manual) Nucleated RBC % Basophils # (Manual) PT INR APTT Heparin Anti-Xa Level 0.20 L ABG pH POC ABG pO2 ABG pO2 ABG HCO3 ABG O2 Saturation ABG Base Excess POC ABG pCO2 ABG Hemoglobin ABG Oxyhemoglobin ABG Glucose Oxyhemoglobin Sodium Potassium Chloride Carbon Dioxide 31 H BUN Creatinine 0.5 L Glucose 147 H POC Glucose 164 H Lactic Acid Calcium Phosphorus Magnesium AST ALT Lactate Dehydrogenase Total Bilirubin Direct Bilirubin CK-MB (CK-2) C-Reactive Protein NT-Pro-B Natriuret Pep Total Protein Albumin Arterial Blood Glucose Urine WBC (Auto) Urine Creatinine 12/16/19 12/16/19 12/17/19 17:17 23:49 05:30 WBC 13.9 H RBC 3.27 L Hgb 9.4 L Hct 29.2 L MCHC RDW 16.0 H MCV MCH Lymph % (Auto) [place] % (Auto) 8.8 H [place] # Eos # Lymph # (Auto) [place] # (Auto) 1.2 H Eos # (Auto) 0.5 H Seg Neutrophils % 70.5 H Seg Neuts % (Manual) Baso # (Auto) 0.2 H Lymphocytes % (Manual) Monocytes % (Manual) Eosinophils % (Manual) Basophils % (Manual) Seg Neutrophils # 9.8 H Seg Neutrophils # Man Lymphocytes # (Manual) Monocytes # (Manual) Eosinophils # (Manual) Nucleated RBC % Basophils # (Manual) PT INR APTT Heparin Anti-Xa Level ABG pH POC ABG pO2 ABG pO2 ABG HCO3 ABG O2 Saturation ABG Base Excess POC ABG pCO2 ABG Hemoglobin ABG Oxyhemoglobin ABG Glucose Oxyhemoglobin Sodium Potassium Chloride Carbon Dioxide BUN Creatinine Glucose POC Glucose 162 H 144 H Lactic Acid Calcium Phosphorus Magnesium AST ALT Lactate Dehydrogenase Total Bilirubin Direct Bilirubin CK-MB (CK-2) C-Reactive Protein NT-Pro-B Natriuret Pep Total Protein Albumin Arterial Blood Glucose Urine WBC (Auto) Urine Creatinine 12/17/19 12/17/19 12/17/19 05:30 06:06 11:50 WBC RBC Hgb Hct MCHC RDW MCV MCH Lymph % (Auto) [place] % (Auto) [place] # Eos # Lymph # (Auto) [place] # (Auto) Eos # (Auto) Seg Neutrophils % Seg Neuts % (Manual) Baso # (Auto) Lymphocytes % (Manual) Monocytes % (Manual) Eosinophils % (Manual) Basophils % (Manual) Seg Neutrophils # Seg Neutrophils # Man Lymphocytes # (Manual) Monocytes # (Manual) Eosinophils # (Manual) Nucleated RBC % Basophils # (Manual) PT INR APTT Heparin Anti-Xa Level ABG pH POC ABG pO2 ABG pO2 ABG HCO3 ABG O2 Saturation ABG Base Excess POC ABG pCO2 ABG Hemoglobin ABG Oxyhemoglobin ABG Glucose Oxyhemoglobin Sodium Potassium Chloride 97.4 L Carbon Dioxide 32 H BUN Creatinine 0.5 L Glucose 135 H POC Glucose 151 H 140 H Lactic Acid Calcium Phosphorus Magnesium AST ALT Lactate Dehydrogenase Total Bilirubin Direct Bilirubin CK-MB (CK-2) C-Reactive Protein NT-Pro-B Natriuret Pep Total Protein Albumin Arterial Blood Glucose Urine WBC (Auto) Urine Creatinine 12/17/19 12/17/19 12/18/19 17:50 23:46 05:17 WBC RBC Hgb 8.8 L Hct 28.0 L MCHC RDW MCV MCH Lymph % (Auto) [place] % (Auto) [place] # Eos # Lymph # (Auto) [place] # (Auto) Eos # (Auto) Seg Neutrophils % Seg Neuts % (Manual) Baso # (Auto) Lymphocytes % (Manual) Monocytes % (Manual) Eosinophils % (Manual) Basophils % (Manual) Seg Neutrophils # Seg Neutrophils # Man Lymphocytes # (Manual) Monocytes # (Manual) Eosinophils # (Manual) Nucleated RBC % Basophils # (Manual) PT INR APTT Heparin Anti-Xa Level ABG pH POC ABG pO2 ABG pO2 ABG HCO3 ABG O2 Saturation ABG Base Excess POC ABG pCO2 ABG Hemoglobin ABG Oxyhemoglobin ABG Glucose Oxyhemoglobin Sodium Potassium Chloride Carbon Dioxide BUN Creatinine Glucose POC Glucose 158 H 150 H Lactic Acid Calcium Phosphorus Magnesium AST ALT Lactate Dehydrogenase Total Bilirubin Direct Bilirubin CK-MB (CK-2) C-Reactive Protein NT-Pro-B Natriuret Pep Total Protein Albumin Arterial Blood Glucose Urine WBC (Auto) Urine Creatinine 12/18/19 12/18/19 12/18/19 05:17 05:49 11:12 WBC RBC Hgb Hct MCHC RDW MCV MCH Lymph % (Auto) [place] % (Auto) [place] # Eos # Lymph # (Auto) [place] # (Auto) Eos # (Auto) Seg Neutrophils % Seg Neuts % (Manual) Baso # (Auto) Lymphocytes % (Manual) Monocytes % (Manual) Eosinophils % (Manual) Basophils % (Manual) Seg Neutrophils # Seg Neutrophils # Man Lymphocytes # (Manual) Monocytes # (Manual) Eosinophils # (Manual) Nucleated RBC % Basophils # (Manual) PT INR APTT Heparin Anti-Xa Level 0.16 L ABG pH POC ABG pO2 ABG pO2 ABG HCO3 ABG O2 Saturation ABG Base Excess POC ABG pCO2 ABG Hemoglobin ABG Oxyhemoglobin ABG Glucose Oxyhemoglobin Sodium Potassium Chloride Carbon Dioxide BUN Creatinine Glucose POC Glucose 127 H 191 H Lactic Acid Calcium Phosphorus Magnesium AST ALT Lactate Dehydrogenase Total Bilirubin Direct Bilirubin CK-MB (CK-2) C-Reactive Protein NT-Pro-B Natriuret Pep Total Protein Albumin Arterial Blood Glucose Urine WBC (Auto) Urine Creatinine 12/18/19 12/18/19 12/19/19 17:03 20:16 00:08 WBC RBC Hgb Hct MCHC RDW MCV MCH Lymph % (Auto) [place] % (Auto) [place] # Eos # Lymph # (Auto) [place] # (Auto) Eos # (Auto) Seg Neutrophils % Seg Neuts % (Manual) Baso # (Auto) Lymphocytes % (Manual) Monocytes % (Manual) Eosinophils % (Manual) Basophils % (Manual) Seg Neutrophils # Seg Neutrophils # Man Lymphocytes # (Manual) Monocytes # (Manual) Eosinophils # (Manual) Nucleated RBC % Basophils # (Manual) PT INR APTT Heparin Anti-Xa Level ABG pH POC ABG pO2 ABG pO2 ABG HCO3 ABG O2 Saturation ABG Base Excess POC ABG pCO2 ABG Hemoglobin ABG Oxyhemoglobin ABG Glucose Oxyhemoglobin Sodium Potassium Chloride Carbon Dioxide BUN Creatinine Glucose POC Glucose 133 H 128 H 129 H Lactic Acid Calcium Phosphorus Magnesium AST ALT Lactate Dehydrogenase Total Bilirubin Direct Bilirubin CK-MB (CK-2) C-Reactive Protein NT-Pro-B Natriuret Pep Total Protein Albumin Arterial Blood Glucose Urine WBC (Auto) Urine Creatinine 12/19/19 12/19/19 12/19/19 04:45 04:45 05:35 WBC RBC Hgb Hct MCHC RDW MCV MCH Lymph % (Auto) [place] % (Auto) [place] # Eos # Lymph # (Auto) [place] # (Auto) Eos # (Auto) Seg Neutrophils % Seg Neuts % (Manual) Baso # (Auto) Lymphocytes % (Manual) Monocytes % (Manual) Eosinophils % (Manual) Basophils % (Manual) Seg Neutrophils # Seg Neutrophils # Man Lymphocytes # (Manual) Monocytes # (Manual) Eosinophils # (Manual) Nucleated RBC % Basophils # (Manual) PT INR APTT Heparin Anti-Xa Level 0.17 L ABG pH POC ABG pO2 ABG pO2 ABG HCO3 ABG O2 Saturation ABG Base Excess POC ABG pCO2 ABG Hemoglobin ABG Oxyhemoglobin ABG Glucose Oxyhemoglobin Sodium Potassium Chloride Carbon Dioxide BUN Creatinine Glucose POC Glucose 120 H Lactic Acid Calcium Phosphorus Magnesium AST ALT Lactate Dehydrogenase 228 H Total Bilirubin Direct Bilirubin CK-MB (CK-2) C-Reactive Protein NT-Pro-B Natriuret Pep Total Protein Albumin Arterial Blood Glucose Urine WBC (Auto) Urine Creatinine 12/19/19 12/19/19 12/19/19 09:20 11:32 11:32 WBC 14.6 H RBC 3.08 L Hgb 9.0 L Hct 26.8 L MCHC RDW 15.9 H MCV MCH Lymph % (Auto) [place] % (Auto) [place] # Eos # Lymph # (Auto) [place] # (Auto) Eos # (Auto) Seg Neutrophils % Seg Neuts % (Manual) 82.0 H Baso # (Auto) Lymphocytes % (Manual) 10.0 L Monocytes % (Manual) Eosinophils % (Manual) Basophils % (Manual) Seg Neutrophils # Seg Neutrophils # Man 12.0 H Lymphocytes # (Manual) Monocytes # (Manual) 0.9 H Eosinophils # (Manual) Nucleated RBC % 1.0 H Basophils # (Manual) PT INR APTT Heparin Anti-Xa Level ABG pH 7.451 H POC ABG pO2 ABG pO2 62.6 L ABG HCO3 33.2 H ABG O2 Saturation 93.8 L ABG Base Excess 8.3 H POC ABG pCO2 ABG Hemoglobin 8.3 L ABG Oxyhemoglobin ABG Glucose Oxyhemoglobin 91.9 L Sodium Potassium Chloride 95.0 L Carbon Dioxide 33 H BUN 22 H Creatinine 0.6 L Glucose 150 H POC Glucose Lactic Acid Calcium Phosphorus Magnesium AST ALT Lactate Dehydrogenase Total Bilirubin Direct Bilirubin CK-MB (CK-2) C-Reactive Protein NT-Pro-B Natriuret Pep Total Protein 6.2 L Albumin 2.4 L Arterial Blood Glucose Urine WBC (Auto) Urine Creatinine 12/19/19 12/19/19 12/20/19 11:56 18:17 00:09 WBC RBC Hgb Hct MCHC RDW MCV MCH Lymph % (Auto) [place] % (Auto) [place] # Eos # Lymph # (Auto) [place] # (Auto) Eos # (Auto) Seg Neutrophils % Seg Neuts % (Manual) Baso # (Auto) Lymphocytes % (Manual) Monocytes % (Manual) Eosinophils % (Manual) Basophils % (Manual) Seg Neutrophils # Seg Neutrophils # Man Lymphocytes # (Manual) Monocytes # (Manual) Eosinophils # (Manual) Nucleated RBC % Basophils # (Manual) PT INR APTT Heparin Anti-Xa Level ABG pH POC ABG pO2 ABG pO2 ABG HCO3 ABG O2 Saturation ABG Base Excess POC ABG pCO2 ABG Hemoglobin ABG Oxyhemoglobin ABG Glucose Oxyhemoglobin Sodium Potassium Chloride Carbon Dioxide BUN Creatinine Glucose POC Glucose 156 H 156 H 155 H Lactic Acid Calcium Phosphorus Magnesium AST ALT Lactate Dehydrogenase Total Bilirubin Direct Bilirubin CK-MB (CK-2) C-Reactive Protein NT-Pro-B Natriuret Pep Total Protein Albumin Arterial Blood Glucose Urine WBC (Auto) Urine Creatinine 12/20/19 12/20/19 12/20/19 05:26 06:02 18:17 WBC RBC Hgb Hct MCHC RDW MCV MCH Lymph % (Auto) [place] % (Auto) [place] # Eos # Lymph # (Auto) [place] # (Auto) Eos # (Auto) Seg Neutrophils % Seg Neuts % (Manual) Baso # (Auto) Lymphocytes % (Manual) Monocytes % (Manual) Eosinophils % (Manual) Basophils % (Manual) Seg Neutrophils # Seg Neutrophils # Man Lymphocytes # (Manual) Monocytes # (Manual) Eosinophils # (Manual) Nucleated RBC % Basophils # (Manual) PT INR APTT Heparin Anti-Xa Level 0.19 L ABG pH POC ABG pO2 ABG pO2 ABG HCO3 ABG O2 Saturation ABG Base Excess POC ABG pCO2 ABG Hemoglobin ABG Oxyhemoglobin ABG Glucose Oxyhemoglobin Sodium Potassium Chloride Carbon Dioxide BUN Creatinine Glucose POC Glucose 137 H 128 H Lactic Acid Calcium Phosphorus Magnesium AST ALT Lactate Dehydrogenase Total Bilirubin Direct Bilirubin CK-MB (CK-2) C-Reactive Protein NT-Pro-B Natriuret Pep Total Protein Albumin Arterial Blood Glucose Urine WBC (Auto) Urine Creatinine 12/20/19 12/21/19 12/21/19 23:34 05:31 05:31 WBC 12.7 H RBC 3.09 L Hgb 8.9 L Hct 27.4 L MCHC RDW 15.8 H MCV MCH Lymph % (Auto) 12.1 L [place] % (Auto) 7.8 H [place] # Eos # Lymph # (Auto) [place] # (Auto) 1.0 H Eos # (Auto) Seg Neutrophils % 77.1 H Seg Neuts % (Manual) Baso # (Auto) Lymphocytes % (Manual) Monocytes % (Manual) Eosinophils % (Manual) Basophils % (Manual) Seg Neutrophils # 9.8 H Seg Neutrophils # Man Lymphocytes # (Manual) Monocytes # (Manual) Eosinophils # (Manual) Nucleated RBC % Basophils # (Manual) PT INR APTT Heparin Anti-Xa Level ABG pH POC ABG pO2 ABG pO2 ABG HCO3 ABG O2 Saturation ABG Base Excess POC ABG pCO2 ABG Hemoglobin ABG Oxyhemoglobin ABG Glucose Oxyhemoglobin Sodium Potassium Chloride 96.9 L Carbon Dioxide 37 H BUN 27 H Creatinine 0.7 L Glucose 140 H POC Glucose 145 H Lactic Acid Calcium Phosphorus Magnesium AST ALT Lactate Dehydrogenase Total Bilirubin Direct Bilirubin CK-MB (CK-2) C-Reactive Protein NT-Pro-B Natriuret Pep Total Protein Albumin Arterial Blood Glucose Urine WBC (Auto) Urine Creatinine 12/21/19 12/21/19 12/21/19 05:38 10:13 11:51 WBC RBC Hgb Hct MCHC RDW MCV MCH Lymph % (Auto) [place] % (Auto) [place] # Eos # Lymph # (Auto) [place] # (Auto) Eos # (Auto) Seg Neutrophils % Seg Neuts % (Manual) Baso # (Auto) Lymphocytes % (Manual) Monocytes % (Manual) Eosinophils % (Manual) Basophils % (Manual) Seg Neutrophils # Seg Neutrophils # Man Lymphocytes # (Manual) Monocytes # (Manual) Eosinophils # (Manual) Nucleated RBC % Basophils # (Manual) PT INR APTT 23.9 L Heparin Anti-Xa Level < 0.10 L ABG pH POC ABG pO2 ABG pO2 ABG HCO3 ABG O2 Saturation ABG Base Excess POC ABG pCO2 ABG Hemoglobin ABG Oxyhemoglobin ABG Glucose Oxyhemoglobin Sodium Potassium Chloride Carbon Dioxide BUN Creatinine Glucose POC Glucose 151 H 145 H Lactic Acid Calcium Phosphorus Magnesium AST ALT Lactate Dehydrogenase Total Bilirubin Direct Bilirubin CK-MB (CK-2) C-Reactive Protein NT-Pro-B Natriuret Pep Total Protein Albumin Arterial Blood Glucose Urine WBC (Auto) Urine Creatinine 12/21/19 12/22/19 12/22/19 17:16 00:01 01:33 WBC RBC Hgb Hct MCHC RDW MCV MCH Lymph % (Auto) [place] % (Auto) [place] # Eos # Lymph # (Auto) [place] # (Auto) Eos # (Auto) Seg Neutrophils % Seg Neuts % (Manual) Baso # (Auto) Lymphocytes % (Manual) Monocytes % (Manual) Eosinophils % (Manual) Basophils % (Manual) Seg Neutrophils # Seg Neutrophils # Man Lymphocytes # (Manual) Monocytes # (Manual) Eosinophils # (Manual) Nucleated RBC % Basophils # (Manual) PT INR APTT Heparin Anti-Xa Level 0.10 L ABG pH POC ABG pO2 ABG pO2 ABG HCO3 ABG O2 Saturation ABG Base Excess POC ABG pCO2 ABG Hemoglobin ABG Oxyhemoglobin ABG Glucose Oxyhemoglobin Sodium Potassium Chloride Carbon Dioxide BUN Creatinine Glucose POC Glucose 167 H 179 H Lactic Acid Calcium Phosphorus Magnesium AST ALT Lactate Dehydrogenase Total Bilirubin Direct Bilirubin CK-MB (CK-2) C-Reactive Protein NT-Pro-B Natriuret Pep Total Protein Albumin Arterial Blood Glucose Urine WBC (Auto) Urine Creatinine 12/22/19 12/22/19 12/22/19 03:22 05:10 05:10 WBC 13.8 H RBC 3.20 L Hgb 8.9 L Hct 28.1 L MCHC RDW 15.9 H MCV MCH Lymph % (Auto) [place] % (Auto) [place] # Eos # Lymph # (Auto) [place] # (Auto) Eos # (Auto) Seg Neutrophils % Seg Neuts % (Manual) Baso # (Auto) Lymphocytes % (Manual) Monocytes % (Manual) Eosinophils % (Manual) Basophils % (Manual) Seg Neutrophils # Seg Neutrophils # Man Lymphocytes # (Manual) Monocytes # (Manual) Eosinophils # (Manual) Nucleated RBC % Basophils # (Manual) PT INR APTT Heparin Anti-Xa Level ABG pH POC ABG pO2 52.3 L ABG pO2 ABG HCO3 ABG O2 Saturation ABG Base Excess POC ABG pCO2 52.9 H ABG Hemoglobin 10.7 L ABG Oxyhemoglobin 84 L ABG Glucose Oxyhemoglobin Sodium Potassium Chloride 96.6 L Carbon Dioxide BUN 25 H Creatinine 0.7 L Glucose 129 H POC Glucose Lactic Acid Calcium Phosphorus Magnesium AST ALT Lactate Dehydrogenase Total Bilirubin Direct Bilirubin CK-MB (CK-2) C-Reactive Protein NT-Pro-B Natriuret Pep Total Protein Albumin Arterial Blood Glucose Urine WBC (Auto) Urine Creatinine 12/22/19 12/22/19 12/22/19 05:18 12:32 12:43 WBC RBC Hgb Hct MCHC RDW MCV MCH Lymph % (Auto) [place] % (Auto) [place] # Eos # Lymph # (Auto) [place] # (Auto) Eos # (Auto) Seg Neutrophils % Seg Neuts % (Manual) Baso # (Auto) Lymphocytes % (Manual) Monocytes % (Manual) Eosinophils % (Manual) Basophils % (Manual) Seg Neutrophils # Seg Neutrophils # Man Lymphocytes # (Manual) Monocytes # (Manual) Eosinophils # (Manual) Nucleated RBC % Basophils # (Manual) PT INR APTT Heparin Anti-Xa Level 0.18 L ABG pH POC ABG pO2 ABG pO2 ABG HCO3 ABG O2 Saturation ABG Base Excess POC ABG pCO2 ABG Hemoglobin ABG Oxyhemoglobin ABG Glucose Oxyhemoglobin Sodium Potassium Chloride Carbon Dioxide BUN Creatinine Glucose POC Glucose 131 H 208 H Lactic Acid Calcium Phosphorus Magnesium AST ALT Lactate Dehydrogenase Total Bilirubin Direct Bilirubin CK-MB (CK-2) C-Reactive Protein NT-Pro-B Natriuret Pep Total Protein Albumin Arterial Blood Glucose Urine WBC (Auto) Urine Creatinine 12/22/19 12/22/19 12/23/19 17:44 23:20 03:51 WBC 15.2 H RBC 3.43 L Hgb 9.6 L Hct 30.3 L MCHC RDW 15.9 H MCV MCH Lymph % (Auto) [place] % (Auto) [place] # Eos # Lymph # (Auto) [place] # (Auto) Eos # (Auto) Seg Neutrophils % Seg Neuts % (Manual) Baso # (Auto) Lymphocytes % (Manual) Monocytes % (Manual) Eosinophils % (Manual) Basophils % (Manual) Seg Neutrophils # Seg Neutrophils # Man Lymphocytes # (Manual) Monocytes # (Manual) Eosinophils # (Manual) Nucleated RBC % Basophils # (Manual) PT INR APTT Heparin Anti-Xa Level ABG pH POC ABG pO2 ABG pO2 ABG HCO3 ABG O2 Saturation ABG Base Excess POC ABG pCO2 ABG Hemoglobin ABG Oxyhemoglobin ABG Glucose Oxyhemoglobin Sodium Potassium Chloride Carbon Dioxide BUN Creatinine Glucose POC Glucose 209 H 119 H Lactic Acid Calcium Phosphorus Magnesium AST ALT Lactate Dehydrogenase Total Bilirubin Direct Bilirubin CK-MB (CK-2) C-Reactive Protein NT-Pro-B Natriuret Pep Total Protein Albumin Arterial Blood Glucose Urine WBC (Auto) Urine Creatinine 12/23/19 12/23/19 12/23/19 03:51 05:31 12:09 WBC RBC Hgb Hct MCHC RDW MCV MCH Lymph % (Auto) [place] % (Auto) [place] # Eos # Lymph # (Auto) [place] # (Auto) Eos # (Auto) Seg Neutrophils % Seg Neuts % (Manual) Baso # (Auto) Lymphocytes % (Manual) Monocytes % (Manual) Eosinophils % (Manual) Basophils % (Manual) Seg Neutrophils # Seg Neutrophils # Man Lymphocytes # (Manual) Monocytes # (Manual) Eosinophils # (Manual) Nucleated RBC % Basophils # (Manual) PT INR APTT Heparin Anti-Xa Level ABG pH POC ABG pO2 ABG pO2 ABG HCO3 ABG O2 Saturation ABG Base Excess POC ABG pCO2 ABG Hemoglobin ABG Oxyhemoglobin ABG Glucose Oxyhemoglobin Sodium Potassium Chloride 97.2 L Carbon Dioxide 31 H BUN 23 H Creatinine 0.6 L Glucose 153 H POC Glucose 149 H 144 H Lactic Acid Calcium Phosphorus Magnesium AST ALT Lactate Dehydrogenase Total Bilirubin Direct Bilirubin CK-MB (CK-2) C-Reactive Protein NT-Pro-B Natriuret Pep Total Protein Albumin Arterial Blood Glucose Urine WBC (Auto) Urine Creatinine 12/23/19 12/23/19 12/23/19 15:30 17:49 23:31 WBC RBC Hgb Hct MCHC RDW MCV MCH Lymph % (Auto) [place] % (Auto) [place] # Eos # Lymph # (Auto) [place] # (Auto) Eos # (Auto) Seg Neutrophils % Seg Neuts % (Manual) Baso # (Auto) Lymphocytes % (Manual) Monocytes % (Manual) Eosinophils % (Manual) Basophils % (Manual) Seg Neutrophils # Seg Neutrophils # Man Lymphocytes # (Manual) Monocytes # (Manual) Eosinophils # (Manual) Nucleated RBC % Basophils # (Manual) PT INR APTT Heparin Anti-Xa Level 0.21 L ABG pH POC ABG pO2 ABG pO2 ABG HCO3 ABG O2 Saturation ABG Base Excess POC ABG pCO2 ABG Hemoglobin ABG Oxyhemoglobin ABG Glucose Oxyhemoglobin Sodium Potassium Chloride Carbon Dioxide BUN Creatinine Glucose POC Glucose 192 H 151 H Lactic Acid Calcium Phosphorus Magnesium AST ALT Lactate Dehydrogenase Total Bilirubin Direct Bilirubin CK-MB (CK-2) C-Reactive Protein NT-Pro-B Natriuret Pep Total Protein Albumin Arterial Blood Glucose Urine WBC (Auto) Urine Creatinine 12/24/19 12/24/19 12/24/19 05:34 12:13 16:50 WBC RBC Hgb Hct MCHC RDW MCV MCH Lymph % (Auto) [place] % (Auto) [place] # Eos # Lymph # (Auto) [place] # (Auto) Eos # (Auto) Seg Neutrophils % Seg Neuts % (Manual) Baso # (Auto) Lymphocytes % (Manual) Monocytes % (Manual) Eosinophils % (Manual) Basophils % (Manual) Seg Neutrophils # Seg Neutrophils # Man Lymphocytes # (Manual) Monocytes # (Manual) Eosinophils # (Manual) Nucleated RBC % Basophils # (Manual) PT INR APTT Heparin Anti-Xa Level 0.16 L ABG pH POC ABG pO2 ABG pO2 ABG HCO3 ABG O2 Saturation ABG Base Excess POC ABG pCO2 ABG Hemoglobin ABG Oxyhemoglobin ABG Glucose Oxyhemoglobin Sodium Potassium Chloride Carbon Dioxide BUN Creatinine Glucose POC Glucose 145 H 124 H Lactic Acid Calcium Phosphorus Magnesium AST ALT Lactate Dehydrogenase Total Bilirubin Direct Bilirubin CK-MB (CK-2) C-Reactive Protein NT-Pro-B Natriuret Pep Total Protein Albumin Arterial Blood Glucose Urine WBC (Auto) Urine Creatinine 12/24/19 12/25/19 12/25/19 17:53 00:14 04:18 WBC 12.9 H RBC 3.30 L Hgb 9.1 L Hct 28.8 L MCHC RDW 16.4 H MCV MCH Lymph % (Auto) [place] % (Auto) 7.8 H [place] # Eos # Lymph # (Auto) [place] # (Auto) 1.0 H Eos # (Auto) Seg Neutrophils % 75.5 H Seg Neuts % (Manual) Baso # (Auto) Lymphocytes % (Manual) Monocytes % (Manual) Eosinophils % (Manual) Basophils % (Manual) Seg Neutrophils # 9.7 H Seg Neutrophils # Man Lymphocytes # (Manual) Monocytes # (Manual) Eosinophils # (Manual) Nucleated RBC % Basophils # (Manual) PT INR APTT Heparin Anti-Xa Level ABG pH POC ABG pO2 ABG pO2 ABG HCO3 ABG O2 Saturation ABG Base Excess POC ABG pCO2 ABG Hemoglobin ABG Oxyhemoglobin ABG Glucose Oxyhemoglobin Sodium Potassium Chloride Carbon Dioxide BUN Creatinine Glucose POC Glucose 164 H 148 H Lactic Acid Calcium Phosphorus Magnesium AST ALT Lactate Dehydrogenase Total Bilirubin Direct Bilirubin CK-MB (CK-2) C-Reactive Protein NT-Pro-B Natriuret Pep Total Protein Albumin Arterial Blood Glucose Urine WBC (Auto) Urine Creatinine 12/25/19 12/25/19 12/25/19 04:18 05:38 11:44 WBC RBC Hgb Hct MCHC RDW MCV MCH Lymph % (Auto) [place] % (Auto) [place] # Eos # Lymph # (Auto) [place] # (Auto) Eos # (Auto) Seg Neutrophils % Seg Neuts % (Manual) Baso # (Auto) Lymphocytes % (Manual) Monocytes % (Manual) Eosinophils % (Manual) Basophils % (Manual) Seg Neutrophils # Seg Neutrophils # Man Lymphocytes # (Manual) Monocytes # (Manual) Eosinophils # (Manual) Nucleated RBC % Basophils # (Manual) PT INR APTT Heparin Anti-Xa Level ABG pH POC ABG pO2 ABG pO2 ABG HCO3 ABG O2 Saturation ABG Base Excess POC ABG pCO2 ABG Hemoglobin ABG Oxyhemoglobin ABG Glucose Oxyhemoglobin Sodium Potassium Chloride Carbon Dioxide 33 H BUN 27 H Creatinine 0.6 L Glucose 132 H POC Glucose 152 H 166 H Lactic Acid Calcium Phosphorus Magnesium AST ALT Lactate Dehydrogenase Total Bilirubin Direct Bilirubin CK-MB (CK-2) C-Reactive Protein NT-Pro-B Natriuret Pep Total Protein Albumin Arterial Blood Glucose Urine WBC (Auto) Urine Creatinine 12/25/19 12/26/19 12/26/19 18:29 00:17 00:18 WBC RBC Hgb Hct MCHC RDW MCV MCH Lymph % (Auto) [place] % (Auto) [place] # Eos # Lymph # (Auto) [place] # (Auto) Eos # (Auto) Seg Neutrophils % Seg Neuts % (Manual) Baso # (Auto) Lymphocytes % (Manual) Monocytes % (Manual) Eosinophils % (Manual) Basophils % (Manual) Seg Neutrophils # Seg Neutrophils # Man Lymphocytes # (Manual) Monocytes # (Manual) Eosinophils # (Manual) Nucleated RBC % Basophils # (Manual) PT INR APTT Heparin Anti-Xa Level ABG pH POC ABG pO2 ABG pO2 ABG HCO3 ABG O2 Saturation ABG Base Excess POC ABG pCO2 ABG Hemoglobin ABG Oxyhemoglobin ABG Glucose Oxyhemoglobin Sodium Potassium Chloride 97.8 L Carbon Dioxide BUN 25 H Creatinine 0.6 L Glucose 140 H POC Glucose 194 H 151 H Lactic Acid Calcium Phosphorus Magnesium AST ALT Lactate Dehydrogenase Total Bilirubin Direct Bilirubin CK-MB (CK-2) C-Reactive Protein NT-Pro-B Natriuret Pep Total Protein Albumin Arterial Blood Glucose Urine WBC (Auto) Urine Creatinine 12/26/19 12/26/19 12/26/19 05:36 11:41 17:50 WBC RBC Hgb Hct MCHC RDW MCV MCH Lymph % (Auto) [place] % (Auto) [place] # Eos # Lymph # (Auto) [place] # (Auto) Eos # (Auto) Seg Neutrophils % Seg Neuts % (Manual) Baso # (Auto) Lymphocytes % (Manual) Monocytes % (Manual) Eosinophils % (Manual) Basophils % (Manual) Seg Neutrophils # Seg Neutrophils # Man Lymphocytes # (Manual) Monocytes # (Manual) Eosinophils # (Manual) Nucleated RBC % Basophils # (Manual) PT INR APTT Heparin Anti-Xa Level ABG pH POC ABG pO2 ABG pO2 ABG HCO3 ABG O2 Saturation ABG Base Excess POC ABG pCO2 ABG Hemoglobin ABG Oxyhemoglobin ABG Glucose Oxyhemoglobin Sodium Potassium Chloride Carbon Dioxide BUN Creatinine Glucose POC Glucose 156 H 148 H 139 H Lactic Acid Calcium Phosphorus Magnesium AST ALT Lactate Dehydrogenase Total Bilirubin Direct Bilirubin CK-MB (CK-2) C-Reactive Protein NT-Pro-B Natriuret Pep Total Protein Albumin Arterial Blood Glucose Urine WBC (Auto) Urine Creatinine 12/26/19 12/27/19 12/27/19 23:19 05:34 12:02 WBC RBC Hgb Hct MCHC RDW MCV MCH Lymph % (Auto) Gregg % (Auto) Gregg # Eos # Lymph # (Auto) Gregg # (Auto) Eos # (Auto) Seg Neutrophils % Seg Neuts % (Manual) Baso # (Auto) Lymphocytes % (Manual) Monocytes % (Manual) Eosinophils % (Manual) Basophils % (Manual) Seg Neutrophils # Seg Neutrophils # Man Lymphocytes # (Manual) Monocytes # (Manual) Eosinophils # (Manual) Nucleated RBC % Basophils # (Manual) PT INR APTT Heparin Anti-Xa Level ABG pH POC ABG pO2 ABG pO2 ABG HCO3 ABG O2 Saturation ABG Base Excess POC ABG pCO2 ABG Hemoglobin ABG Oxyhemoglobin ABG Glucose Oxyhemoglobin Sodium Potassium Chloride Carbon Dioxide BUN Creatinine Glucose POC Glucose 161 H 145 H 157 H Lactic Acid Calcium Phosphorus Magnesium AST ALT Lactate Dehydrogenase Total Bilirubin Direct Bilirubin CK-MB (CK-2) C-Reactive Protein NT-Pro-B Natriuret Pep Total Protein Albumin Arterial Blood Glucose Urine WBC (Auto) Urine Creatinine 12/27/19 12/27/19 12/27/19 17:35 20:11 23:00 WBC RBC Hgb Hct MCHC RDW MCV MCH Lymph % (Auto) [place] % (Auto) [place] # Eos # Lymph # (Auto) [place] # (Auto) Eos # (Auto) Seg Neutrophils % Seg Neuts % (Manual) Baso # (Auto) Lymphocytes % (Manual) Monocytes % (Manual) Eosinophils % (Manual) Basophils % (Manual) Seg Neutrophils # Seg Neutrophils # Man Lymphocytes # (Manual) Monocytes # (Manual) Eosinophils # (Manual) Nucleated RBC % Basophils # (Manual) PT INR APTT Heparin Anti-Xa Level 0.19 L ABG pH POC ABG pO2 ABG pO2 ABG HCO3 ABG O2 Saturation ABG Base Excess POC ABG pCO2 ABG Hemoglobin ABG Oxyhemoglobin ABG Glucose Oxyhemoglobin Sodium Potassium Chloride Carbon Dioxide BUN Creatinine Glucose POC Glucose 158 H 155 H Lactic Acid Calcium Phosphorus Magnesium AST ALT Lactate Dehydrogenase Total Bilirubin Direct Bilirubin CK-MB (CK-2) C-Reactive Protein NT-Pro-B Natriuret Pep Total Protein Albumin Arterial Blood Glucose Urine WBC (Auto) Urine Creatinine 12/27/19 12/28/19 12/28/19 23:45 02:41 02:41 WBC 13.0 H RBC 3.48 L Hgb 9.5 L Hct 30.6 L MCHC 31 L RDW 16.6 H MCV MCH 27 L Lymph % (Auto) 13.0 L [place] % (Auto) 8.0 H [place] # Eos # Lymph # (Auto) [place] # (Auto) 1.0 H Eos # (Auto) Seg Neutrophils % 76.3 H Seg Neuts % (Manual) Baso # (Auto) Lymphocytes % (Manual) Monocytes % (Manual) Eosinophils % (Manual) Basophils % (Manual) Seg Neutrophils # 9.9 H Seg Neutrophils # Man Lymphocytes # (Manual) Monocytes # (Manual) Eosinophils # (Manual) Nucleated RBC % Basophils # (Manual) PT INR APTT Heparin Anti-Xa Level ABG pH POC ABG pO2 ABG pO2 ABG HCO3 ABG O2 Saturation ABG Base Excess POC ABG pCO2 ABG Hemoglobin ABG Oxyhemoglobin ABG Glucose Oxyhemoglobin Sodium Potassium Chloride Carbon Dioxide BUN 22 H Creatinine 0.6 L Glucose 101 H POC Glucose 130 H Lactic Acid Calcium Phosphorus Magnesium AST ALT Lactate Dehydrogenase Total Bilirubin Direct Bilirubin CK-MB (CK-2) C-Reactive Protein NT-Pro-B Natriuret Pep Total Protein Albumin Arterial Blood Glucose Urine WBC (Auto) Urine Creatinine 12/28/19 12/28/19 12/28/19 06:00 12:34 18:13 WBC RBC Hgb Hct MCHC RDW MCV MCH Lymph % (Auto) [place] % (Auto) [place] # Eos # Lymph # (Auto) [place] # (Auto) Eos # (Auto) Seg Neutrophils % Seg Neuts % (Manual) Baso # (Auto) Lymphocytes % (Manual) Monocytes % (Manual) Eosinophils % (Manual) Basophils % (Manual) Seg Neutrophils # Seg Neutrophils # Man Lymphocytes # (Manual) Monocytes # (Manual) Eosinophils # (Manual) Nucleated RBC % Basophils # (Manual) PT INR APTT Heparin Anti-Xa Level ABG pH POC ABG pO2 ABG pO2 ABG HCO3 ABG O2 Saturation ABG Base Excess POC ABG pCO2 ABG Hemoglobin ABG Oxyhemoglobin ABG Glucose Oxyhemoglobin Sodium Potassium Chloride Carbon Dioxide BUN Creatinine Glucose POC Glucose 150 H 161 H 128 H Lactic Acid Calcium Phosphorus Magnesium AST ALT Lactate Dehydrogenase Total Bilirubin Direct Bilirubin CK-MB (CK-2) C-Reactive Protein NT-Pro-B Natriuret Pep Total Protein Albumin Arterial Blood Glucose Urine WBC (Auto) Urine Creatinine 12/28/19 12/29/19 12/29/19 23:36 05:21 11:40 WBC RBC Hgb Hct MCHC RDW MCV MCH Lymph % (Auto) [place] % (Auto) [place] # Eos # Lymph # (Auto) [place] # (Auto) Eos # (Auto) Seg Neutrophils % Seg Neuts % (Manual) Baso # (Auto) Lymphocytes % (Manual) Monocytes % (Manual) Eosinophils % (Manual) Basophils % (Manual) Seg Neutrophils # Seg Neutrophils # Man Lymphocytes # (Manual) Monocytes # (Manual) Eosinophils # (Manual) Nucleated RBC % Basophils # (Manual) PT INR APTT Heparin Anti-Xa Level ABG pH POC ABG pO2 ABG pO2 ABG HCO3 ABG O2 Saturation ABG Base Excess POC ABG pCO2 ABG Hemoglobin ABG Oxyhemoglobin ABG Glucose Oxyhemoglobin Sodium Potassium Chloride Carbon Dioxide BUN Creatinine Glucose POC Glucose 137 H 136 H 166 H Lactic Acid Calcium Phosphorus Magnesium AST ALT Lactate Dehydrogenase Total Bilirubin Direct Bilirubin CK-MB (CK-2) C-Reactive Protein NT-Pro-B Natriuret Pep Total Protein Albumin Arterial Blood Glucose Urine WBC (Auto) Urine Creatinine 12/29/19 12/29/19 12/29/19 17:23 19:21 23:38 WBC RBC Hgb Hct MCHC RDW MCV MCH Lymph % (Auto) [place] % (Auto) [place] # Eos # Lymph # (Auto) [place] # (Auto) Eos # (Auto) Seg Neutrophils % Seg Neuts % (Manual) Baso # (Auto) Lymphocytes % (Manual) Monocytes % (Manual) Eosinophils % (Manual) Basophils % (Manual) Seg Neutrophils # Seg Neutrophils # Man Lymphocytes # (Manual) Monocytes # (Manual) Eosinophils # (Manual) Nucleated RBC % Basophils # (Manual) PT INR APTT Heparin Anti-Xa Level 0.20 L ABG pH POC ABG pO2 ABG pO2 ABG HCO3 ABG O2 Saturation ABG Base Excess POC ABG pCO2 ABG Hemoglobin ABG Oxyhemoglobin ABG Glucose Oxyhemoglobin Sodium Potassium Chloride Carbon Dioxide BUN Creatinine Glucose POC Glucose 144 H 141 H Lactic Acid Calcium Phosphorus Magnesium AST ALT Lactate Dehydrogenase Total Bilirubin Direct Bilirubin CK-MB (CK-2) C-Reactive Protein NT-Pro-B Natriuret Pep Total Protein Albumin Arterial Blood Glucose Urine WBC (Auto) Urine Creatinine 12/30/19 12/30/19 12/30/19 03:58 03:58 04:59 WBC RBC 3.54 L Hgb 9.8 L Hct 30.7 L MCHC RDW 16.8 H MCV MCH Lymph % (Auto) [place] % (Auto) [place] # Eos # Lymph # (Auto) [place] # (Auto) Eos # (Auto) Seg Neutrophils % Seg Neuts % (Manual) Baso # (Auto) Lymphocytes % (Manual) Monocytes % (Manual) Eosinophils % (Manual) Basophils % (Manual) Seg Neutrophils # Seg Neutrophils # Man Lymphocytes # (Manual) Monocytes # (Manual) Eosinophils # (Manual) Nucleated RBC % Basophils # (Manual) PT INR APTT Heparin Anti-Xa Level ABG pH POC ABG pO2 ABG pO2 ABG HCO3 29.8 H ABG O2 Saturation ABG Base Excess 4.8 H POC ABG pCO2 ABG Hemoglobin 11.2 L ABG Oxyhemoglobin ABG Glucose Oxyhemoglobin 93.8 L Sodium Potassium Chloride 97.8 L Carbon Dioxide BUN 26 H Creatinine Glucose 168 H POC Glucose Lactic Acid Calcium Phosphorus Magnesium AST ALT Lactate Dehydrogenase Total Bilirubin Direct Bilirubin CK-MB (CK-2) C-Reactive Protein NT-Pro-B Natriuret Pep Total Protein Albumin Arterial Blood Glucose Urine WBC (Auto) Urine Creatinine 12/30/19 12/30/19 12/30/19 05:45 11:34 17:28 WBC RBC Hgb Hct MCHC RDW MCV MCH Lymph % (Auto) [place] % (Auto) [place] # Eos # Lymph # (Auto) [place] # (Auto) Eos # (Auto) Seg Neutrophils % Seg Neuts % (Manual) Baso # (Auto) Lymphocytes % (Manual) Monocytes % (Manual) Eosinophils % (Manual) Basophils % (Manual) Seg Neutrophils # Seg Neutrophils # Man Lymphocytes # (Manual) Monocytes # (Manual) Eosinophils # (Manual) Nucleated RBC % Basophils # (Manual) PT INR APTT Heparin Anti-Xa Level ABG pH POC ABG pO2 ABG pO2 ABG HCO3 ABG O2 Saturation ABG Base Excess POC ABG pCO2 ABG Hemoglobin ABG Oxyhemoglobin ABG Glucose Oxyhemoglobin Sodium Potassium Chloride Carbon Dioxide BUN Creatinine Glucose POC Glucose 163 H 180 H 150 H Lactic Acid Calcium Phosphorus Magnesium AST ALT Lactate Dehydrogenase Total Bilirubin Direct Bilirubin CK-MB (CK-2) C-Reactive Protein NT-Pro-B Natriuret Pep Total Protein Albumin Arterial Blood Glucose Urine WBC (Auto) Urine Creatinine 12/30/19 12/31/19 12/31/19 23:43 04:55 05:07 WBC RBC Hgb Hct MCHC RDW MCV MCH Lymph % (Auto) [place] % (Auto) [place] # Eos # Lymph # (Auto) [place] # (Auto) Eos # (Auto) Seg Neutrophils % Seg Neuts % (Manual) Baso # (Auto) Lymphocytes % (Manual) Monocytes % (Manual) Eosinophils % (Manual) Basophils % (Manual) Seg Neutrophils # Seg Neutrophils # Man Lymphocytes # (Manual) Monocytes # (Manual) Eosinophils # (Manual) Nucleated RBC % Basophils # (Manual) PT INR APTT Heparin Anti-Xa Level ABG pH POC ABG pO2 ABG pO2 ABG HCO3 ABG O2 Saturation ABG Base Excess POC ABG pCO2 ABG Hemoglobin ABG Oxyhemoglobin ABG Glucose Oxyhemoglobin Sodium Potassium 5.6 H D Chloride Carbon Dioxide BUN 33 H Creatinine Glucose 131 H POC Glucose 142 H 134 H Lactic Acid Calcium Phosphorus Magnesium AST ALT Lactate Dehydrogenase Total Bilirubin Direct Bilirubin CK-MB (CK-2) C-Reactive Protein NT-Pro-B Natriuret Pep Total Protein Albumin Arterial Blood Glucose Urine WBC (Auto) Urine Creatinine 12/31/19 12/31/19 12/31/19 11:30 17:19 17:36 WBC RBC Hgb Hct MCHC RDW MCV MCH Lymph % (Auto) [place] % (Auto) [place] # Eos # Lymph # (Auto) [place] # (Auto) Eos # (Auto) Seg Neutrophils % Seg Neuts % (Manual) Baso # (Auto) Lymphocytes % (Manual) Monocytes % (Manual) Eosinophils % (Manual) Basophils % (Manual) Seg Neutrophils # Seg Neutrophils # Man Lymphocytes # (Manual) Monocytes # (Manual) Eosinophils # (Manual) Nucleated RBC % Basophils # (Manual) PT INR APTT Heparin Anti-Xa Level ABG pH POC ABG pO2 ABG pO2 ABG HCO3 ABG O2 Saturation ABG Base Excess POC ABG pCO2 ABG Hemoglobin ABG Oxyhemoglobin ABG Glucose Oxyhemoglobin Sodium Potassium Chloride Carbon Dioxide BUN 35 H Creatinine Glucose 156 H POC Glucose 158 H 181 H Lactic Acid Calcium Phosphorus Magnesium AST ALT Lactate Dehydrogenase Total Bilirubin Direct Bilirubin CK-MB (CK-2) C-Reactive Protein NT-Pro-B Natriuret Pep Total Protein Albumin Arterial Blood Glucose Urine WBC (Auto) Urine Creatinine 12/31/19 12/31/19 12/31/19 18:16 19:41 21:53 WBC RBC Hgb Hct MCHC RDW MCV MCH Lymph % (Auto) [place] % (Auto) [place] # Eos # Lymph # (Auto) [place] # (Auto) Eos # (Auto) Seg Neutrophils % Seg Neuts % (Manual) Baso # (Auto) Lymphocytes % (Manual) Monocytes % (Manual) Eosinophils % (Manual) Basophils % (Manual) Seg Neutrophils # Seg Neutrophils # Man Lymphocytes # (Manual) Monocytes # (Manual) Eosinophils # (Manual) Nucleated RBC % Basophils # (Manual) PT INR APTT Heparin Anti-Xa Level 0.20 L ABG pH POC ABG pO2 ABG pO2 ABG HCO3 ABG O2 Saturation ABG Base Excess POC ABG pCO2 ABG Hemoglobin ABG Oxyhemoglobin ABG Glucose Oxyhemoglobin Sodium Potassium Chloride Carbon Dioxide BUN 34 H Creatinine Glucose 169 H POC Glucose 141 H Lactic Acid Calcium Phosphorus Magnesium AST ALT Lactate Dehydrogenase Total Bilirubin Direct Bilirubin CK-MB (CK-2) C-Reactive Protein NT-Pro-B Natriuret Pep Total Protein Albumin Arterial Blood Glucose Urine WBC (Auto) Urine Creatinine 12/31/19 01/01/20 01/01/20 23:51 05:17 10:40 WBC RBC Hgb Hct MCHC RDW MCV MCH Lymph % (Auto) [place] % (Auto) [place] # Eos # Lymph # (Auto) [place] # (Auto) Eos # (Auto) Seg Neutrophils % Seg Neuts % (Manual) Baso # (Auto) Lymphocytes % (Manual) Monocytes % (Manual) Eosinophils % (Manual) Basophils % (Manual) Seg Neutrophils # Seg Neutrophils # Man Lymphocytes # (Manual) Monocytes # (Manual) Eosinophils # (Manual) Nucleated RBC % Basophils # (Manual) PT INR APTT Heparin Anti-Xa Level ABG pH POC ABG pO2 ABG pO2 ABG HCO3 ABG O2 Saturation ABG Base Excess POC ABG pCO2 ABG Hemoglobin ABG Oxyhemoglobin ABG Glucose Oxyhemoglobin Sodium Potassium Chloride Carbon Dioxide BUN 31 H Creatinine 0.7 L Glucose 137 H POC Glucose 131 H 155 H Lactic Acid Calcium Phosphorus Magnesium AST 73 H ALT 97 H Lactate Dehydrogenase Total Bilirubin Direct Bilirubin CK-MB (CK-2) C-Reactive Protein NT-Pro-B Natriuret Pep 3866 H Total Protein Albumin 2.8 L Arterial Blood Glucose Urine WBC (Auto) Urine Creatinine 01/01/20 01/01/20 01/01/20 12:26 15:33 17:53 WBC 14.3 H RBC 3.35 L Hgb 9.1 L Hct 28.8 L MCHC RDW 17.0 H MCV MCH 27 L Lymph % (Auto) 7.0 L [place] % (Auto) 7.6 H [place] # Eos # Lymph # (Auto) 1.0 L [place] # (Auto) 1.1 H Eos # (Auto) Seg Neutrophils % 83.3 H Seg Neuts % (Manual) Baso # (Auto) Lymphocytes % (Manual) Monocytes % (Manual) Eosinophils % (Manual) Basophils % (Manual) Seg Neutrophils # 12.0 H Seg Neutrophils # Man Lymphocytes # (Manual) Monocytes # (Manual) Eosinophils # (Manual) Nucleated RBC % Basophils # (Manual) PT INR APTT Heparin Anti-Xa Level ABG pH POC ABG pO2 ABG pO2 ABG HCO3 ABG O2 Saturation ABG Base Excess POC ABG pCO2 ABG Hemoglobin ABG Oxyhemoglobin ABG Glucose Oxyhemoglobin Sodium Potassium Chloride Carbon Dioxide BUN Creatinine Glucose POC Glucose 128 H 128 H Lactic Acid Calcium Phosphorus Magnesium AST ALT Lactate Dehydrogenase Total Bilirubin Direct Bilirubin CK-MB (CK-2) C-Reactive Protein NT-Pro-B Natriuret Pep Total Protein Albumin Arterial Blood Glucose Urine WBC (Auto) Urine Creatinine 01/01/20 01/02/20 01/02/20 23:04 05:39 07:00 WBC RBC Hgb Hct MCHC RDW MCV MCH Lymph % (Auto) [place] % (Auto) [place] # Eos # Lymph # (Auto) [place] # (Auto) Eos # (Auto) Seg Neutrophils % Seg Neuts % (Manual) Baso # (Auto) Lymphocytes % (Manual) Monocytes % (Manual) Eosinophils % (Manual) Basophils % (Manual) Seg Neutrophils # Seg Neutrophils # Man Lymphocytes # (Manual) Monocytes # (Manual) Eosinophils # (Manual) Nucleated RBC % Basophils # (Manual) PT INR APTT Heparin Anti-Xa Level 0.13 L ABG pH POC ABG pO2 ABG pO2 ABG HCO3 ABG O2 Saturation ABG Base Excess POC ABG pCO2 ABG Hemoglobin ABG Oxyhemoglobin ABG Glucose Oxyhemoglobin Sodium Potassium Chloride Carbon Dioxide BUN Creatinine Glucose POC Glucose 120 H 169 H Lactic Acid Calcium Phosphorus Magnesium AST ALT Lactate Dehydrogenase Total Bilirubin Direct Bilirubin CK-MB (CK-2) C-Reactive Protein NT-Pro-B Natriuret Pep Total Protein Albumin Arterial Blood Glucose Urine WBC (Auto) Urine Creatinine 01/02/20 01/02/20 01/02/20 12:15 14:06 17:58 WBC RBC Hgb Hct MCHC RDW MCV MCH Lymph % (Auto) [place] % (Auto) [place] # Eos # Lymph # (Auto) [place] # (Auto) Eos # (Auto) Seg Neutrophils % Seg Neuts % (Manual) Baso # (Auto) Lymphocytes % (Manual) Monocytes % (Manual) Eosinophils % (Manual) Basophils % (Manual) Seg Neutrophils # Seg Neutrophils # Man Lymphocytes # (Manual) Monocytes # (Manual) Eosinophils # (Manual) Nucleated RBC % Basophils # (Manual) PT INR APTT Heparin Anti-Xa Level < 0.10 L ABG pH POC ABG pO2 ABG pO2 ABG HCO3 ABG O2 Saturation ABG Base Excess POC ABG pCO2 ABG Hemoglobin ABG Oxyhemoglobin ABG Glucose Oxyhemoglobin Sodium Potassium Chloride Carbon Dioxide BUN Creatinine Glucose POC Glucose 190 H 198 H Lactic Acid Calcium Phosphorus Magnesium AST ALT Lactate Dehydrogenase Total Bilirubin Direct Bilirubin CK-MB (CK-2) C-Reactive Protein NT-Pro-B Natriuret Pep Total Protein Albumin Arterial Blood Glucose Urine WBC (Auto) Urine Creatinine 01/02/20 01/02/20 01/03/20 21:43 23:33 05:42 WBC RBC Hgb Hct MCHC RDW MCV MCH Lymph % (Auto) [place] % (Auto) [place] # Eos # Lymph # (Auto) [place] # (Auto) Eos # (Auto) Seg Neutrophils % Seg Neuts % (Manual) Baso # (Auto) Lymphocytes % (Manual) Monocytes % (Manual) Eosinophils % (Manual) Basophils % (Manual) Seg Neutrophils # Seg Neutrophils # Man Lymphocytes # (Manual) Monocytes # (Manual) Eosinophils # (Manual) Nucleated RBC % Basophils # (Manual) PT INR APTT Heparin Anti-Xa Level 0.10 L ABG pH POC ABG pO2 ABG pO2 ABG HCO3 ABG O2 Saturation ABG Base Excess POC ABG pCO2 ABG Hemoglobin ABG Oxyhemoglobin ABG Glucose Oxyhemoglobin Sodium Potassium Chloride Carbon Dioxide BUN Creatinine Glucose POC Glucose 180 H 163 H Lactic Acid Calcium Phosphorus Magnesium AST ALT Lactate Dehydrogenase Total Bilirubin Direct Bilirubin CK-MB (CK-2) C-Reactive Protein NT-Pro-B Natriuret Pep Total Protein Albumin Arterial Blood Glucose Urine WBC (Auto) Urine Creatinine 01/03/20 01/03/20 01/03/20 06:50 07:25 07:45 WBC 12.1 H RBC 3.35 L Hgb 9.0 L Hct 28.9 L MCHC 31 L RDW 16.6 H MCV MCH 27 L Lymph % (Auto) 13.0 L [place] % (Auto) 8.6 H [place] # Eos # Lymph # (Auto) [place] # (Auto) 1.0 H Eos # (Auto) Seg Neutrophils % 75.9 H Seg Neuts % (Manual) Baso # (Auto) Lymphocytes % (Manual) Monocytes % (Manual) Eosinophils % (Manual) Basophils % (Manual) Seg Neutrophils # 9.2 H Seg Neutrophils # Man Lymphocytes # (Manual) Monocytes # (Manual) Eosinophils # (Manual) Nucleated RBC % Basophils # (Manual) PT INR APTT Heparin Anti-Xa Level 0.29 L ABG pH POC ABG pO2 ABG pO2 ABG HCO3 ABG O2 Saturation ABG Base Excess POC ABG pCO2 ABG Hemoglobin ABG Oxyhemoglobin ABG Glucose Oxyhemoglobin Sodium Potassium 3.3 L D Chloride Carbon Dioxide 35 H D BUN 23 H Creatinine 0.6 L Glucose 149 H POC Glucose Lactic Acid Calcium Phosphorus Magnesium AST ALT 88 H Lactate Dehydrogenase Total Bilirubin Direct Bilirubin CK-MB (CK-2) C-Reactive Protein NT-Pro-B Natriuret Pep Total Protein 6.2 L Albumin 2.9 L Arterial Blood Glucose Urine WBC (Auto) Urine Creatinine 01/03/20 01/03/20 01/03/20 12:05 17:42 18:30 WBC RBC Hgb Hct MCHC RDW MCV MCH Lymph % (Auto) [place] % (Auto) [place] # Eos # Lymph # (Auto) [place] # (Auto) Eos # (Auto) Seg Neutrophils % Seg Neuts % (Manual) Baso # (Auto) Lymphocytes % (Manual) Monocytes % (Manual) Eosinophils % (Manual) Basophils % (Manual) Seg Neutrophils # Seg Neutrophils # Man Lymphocytes # (Manual) Monocytes # (Manual) Eosinophils # (Manual) Nucleated RBC % Basophils # (Manual) PT INR APTT Heparin Anti-Xa Level ABG pH POC ABG pO2 ABG pO2 70.7 L ABG HCO3 36.1 H ABG O2 Saturation 94.4 L ABG Base Excess 10.0 H POC ABG pCO2 ABG Hemoglobin 9.7 L ABG Oxyhemoglobin ABG Glucose Oxyhemoglobin 91.8 L Sodium Potassium Chloride Carbon Dioxide BUN Creatinine Glucose POC Glucose 128 H 132 H Lactic Acid Calcium Phosphorus Magnesium AST ALT Lactate Dehydrogenase Total Bilirubin Direct Bilirubin CK-MB (CK-2) C-Reactive Protein NT-Pro-B Natriuret Pep Total Protein Albumin Arterial Blood Glucose Urine WBC (Auto) Urine Creatinine 01/04/20 01/04/20 01/04/20 00:10 04:26 05:23 WBC RBC Hgb Hct MCHC RDW MCV MCH Lymph % (Auto) [place] % (Auto) [place] # Eos # Lymph # (Auto) [place] # (Auto) Eos # (Auto) Seg Neutrophils % Seg Neuts % (Manual) Baso # (Auto) Lymphocytes % (Manual) Monocytes % (Manual) Eosinophils % (Manual) Basophils % (Manual) Seg Neutrophils # Seg Neutrophils # Man Lymphocytes # (Manual) Monocytes # (Manual) Eosinophils # (Manual) Nucleated RBC % Basophils # (Manual) PT INR APTT Heparin Anti-Xa Level 0.16 L ABG pH POC ABG pO2 ABG pO2 ABG HCO3 ABG O2 Saturation ABG Base Excess POC ABG pCO2 ABG Hemoglobin ABG Oxyhemoglobin ABG Glucose Oxyhemoglobin Sodium Potassium Chloride Carbon Dioxide BUN Creatinine Glucose POC Glucose 121 H 119 H Lactic Acid Calcium Phosphorus Magnesium AST ALT Lactate Dehydrogenase Total Bilirubin Direct Bilirubin CK-MB (CK-2) C-Reactive Protein NT-Pro-B Natriuret Pep Total Protein Albumin Arterial Blood Glucose Urine WBC (Auto) Urine Creatinine 01/04/20 01/04/20 01/04/20 09:50 09:50 12:18 WBC 15.4 H RBC 3.30 L Hgb 8.7 L Hct 28.2 L MCHC 31 L RDW 17.0 H MCV MCH 26 L Lymph % (Auto) [place] % (Auto) 7.6 H [place] # Eos # Lymph # (Auto) [place] # (Auto) 1.2 H Eos # (Auto) Seg Neutrophils % 75.4 H Seg Neuts % (Manual) Baso # (Auto) Lymphocytes % (Manual) Monocytes % (Manual) Eosinophils % (Manual) Basophils % (Manual) Seg Neutrophils # 11.6 H Seg Neutrophils # Man Lymphocytes # (Manual) Monocytes # (Manual) Eosinophils # (Manual) Nucleated RBC % Basophils # (Manual) PT INR APTT Heparin Anti-Xa Level ABG pH POC ABG pO2 ABG pO2 ABG HCO3 ABG O2 Saturation ABG Base Excess POC ABG pCO2 ABG Hemoglobin ABG Oxyhemoglobin ABG Glucose Oxyhemoglobin Sodium 148 H Potassium 3.5 L Chloride Carbon Dioxide 32 H BUN Creatinine 0.6 L Glucose 114 H POC Glucose 111 H Lactic Acid Calcium Phosphorus Magnesium AST ALT 59 H Lactate Dehydrogenase Total Bilirubin Direct Bilirubin CK-MB (CK-2) C-Reactive Protein NT-Pro-B Natriuret Pep Total Protein Albumin 2.6 L Arterial Blood Glucose Urine WBC (Auto) Urine Creatinine 01/05/20 01/05/20 01/05/20 04:05 04:05 05:19 WBC 11.7 H RBC 3.50 L Hgb 9.3 L Hct 29.9 L MCHC 31 L RDW 16.6 H MCV MCH 27 L Lymph % (Auto) 13.1 L [place] % (Auto) 9.7 H [place] # Eos # Lymph # (Auto) [place] # (Auto) 1.1 H Eos # (Auto) Seg Neutrophils % 74.0 H Seg Neuts % (Manual) Baso # (Auto) Lymphocytes % (Manual) Monocytes % (Manual) Eosinophils % (Manual) Basophils % (Manual) Seg Neutrophils # 8.6 H Seg Neutrophils # Man Lymphocytes # (Manual) Monocytes # (Manual) Eosinophils # (Manual) Nucleated RBC % Basophils # (Manual) PT INR APTT Heparin Anti-Xa Level ABG pH POC ABG pO2 ABG pO2 ABG HCO3 ABG O2 Saturation ABG Base Excess POC ABG pCO2 ABG Hemoglobin ABG Oxyhemoglobin ABG Glucose Oxyhemoglobin Sodium 151 H Potassium Chloride Carbon Dioxide 34 H BUN Creatinine 0.7 L Glucose POC Glucose 112 H Lactic Acid Calcium Phosphorus Magnesium AST ALT 59 H Lactate Dehydrogenase Total Bilirubin Direct Bilirubin CK-MB (CK-2) C-Reactive Protein NT-Pro-B Natriuret Pep Total Protein 5.8 L Albumin 2.6 L Arterial Blood Glucose Urine WBC (Auto) Urine Creatinine 01/05/20 01/06/20 01/06/20 16:04 00:23 04:44 WBC RBC 3.36 L Hgb 8.9 L Hct 28.7 L MCHC 31 L RDW 16.9 H MCV MCH 26 L Lymph % (Auto) [place] % (Auto) 9.4 H [place] # Eos # Lymph # (Auto) [place] # (Auto) Eos # (Auto) Seg Neutrophils % Seg Neuts % (Manual) Baso # (Auto) Lymphocytes % (Manual) Monocytes % (Manual) Eosinophils % (Manual) Basophils % (Manual) Seg Neutrophils # Seg Neutrophils # Man Lymphocytes # (Manual) Monocytes # (Manual) Eosinophils # (Manual) Nucleated RBC % Basophils # (Manual) PT INR APTT Heparin Anti-Xa Level ABG pH POC ABG pO2 ABG pO2 ABG HCO3 ABG O2 Saturation ABG Base Excess POC ABG pCO2 ABG Hemoglobin ABG Oxyhemoglobin ABG Glucose Oxyhemoglobin Sodium 151 H Potassium 3.2 L Chloride Carbon Dioxide 34 H BUN Creatinine 0.6 L Glucose POC Glucose 107 H Lactic Acid Calcium Phosphorus Magnesium AST ALT Lactate Dehydrogenase Total Bilirubin Direct Bilirubin CK-MB (CK-2) C-Reactive Protein NT-Pro-B Natriuret Pep Total Protein Albumin Arterial Blood Glucose Urine WBC (Auto) Urine Creatinine 01/06/20 01/06/20 01/06/20 04:44 05:33 12:04 WBC RBC Hgb Hct MCHC RDW MCV MCH Lymph % (Auto) [place] % (Auto) [place] # Eos # Lymph # (Auto) [place] # (Auto) Eos # (Auto) Seg Neutrophils % Seg Neuts % (Manual) Baso # (Auto) Lymphocytes % (Manual) Monocytes % (Manual) Eosinophils % (Manual) Basophils % (Manual) Seg Neutrophils # Seg Neutrophils # Man Lymphocytes # (Manual) Monocytes # (Manual) Eosinophils # (Manual) Nucleated RBC % Basophils # (Manual) PT INR APTT Heparin Anti-Xa Level ABG pH POC ABG pO2 ABG pO2 ABG HCO3 ABG O2 Saturation ABG Base Excess POC ABG pCO2 ABG Hemoglobin ABG Oxyhemoglobin ABG Glucose Oxyhemoglobin Sodium 151 H Potassium 3.4 L Chloride Carbon Dioxide 33 H BUN Creatinine 0.6 L Glucose 118 H POC Glucose 118 H 123 H Lactic Acid Calcium Phosphorus Magnesium AST ALT Lactate Dehydrogenase Total Bilirubin Direct Bilirubin CK-MB (CK-2) C-Reactive Protein NT-Pro-B Natriuret Pep Total Protein 6.2 L Albumin 2.6 L Arterial Blood Glucose Urine WBC (Auto) Urine Creatinine 01/06/20 01/07/20 01/07/20 17:54 00:06 04:10 WBC RBC 3.42 L Hgb 8.9 L Hct 29.0 L MCHC 31 L RDW 17.1 H MCV MCH 26 L Lymph % (Auto) [place] % (Auto) 8.4 H [place] # Eos # Lymph # (Auto) [place] # (Auto) Eos # (Auto) Seg Neutrophils % Seg Neuts % (Manual) Baso # (Auto) Lymphocytes % (Manual) Monocytes % (Manual) Eosinophils % (Manual) Basophils % (Manual) Seg Neutrophils # Seg Neutrophils # Man Lymphocytes # (Manual) Monocytes # (Manual) Eosinophils # (Manual) Nucleated RBC % Basophils # (Manual) PT INR APTT Heparin Anti-Xa Level ABG pH POC ABG pO2 ABG pO2 ABG HCO3 ABG O2 Saturation ABG Base Excess POC ABG pCO2 ABG Hemoglobin ABG Oxyhemoglobin ABG Glucose Oxyhemoglobin Sodium Potassium Chloride Carbon Dioxide BUN Creatinine Glucose POC Glucose 112 H 126 H Lactic Acid Calcium Phosphorus Magnesium AST ALT Lactate Dehydrogenase Total Bilirubin Direct Bilirubin CK-MB (CK-2) C-Reactive Protein NT-Pro-B Natriuret Pep Total Protein Albumin Arterial Blood Glucose Urine WBC (Auto) Urine Creatinine 01/07/20 01/07/20 01/07/20 04:10 05:59 12:27 WBC RBC Hgb Hct MCHC RDW MCV MCH Lymph % (Auto) Gregg % (Auto) Gregg # Eos # Lymph # (Auto) Gregg # (Auto) Eos # (Auto) Seg Neutrophils % Seg Neuts % (Manual) Baso # (Auto) Lymphocytes % (Manual) Monocytes % (Manual) Eosinophils % (Manual) Basophils % (Manual) Seg Neutrophils # Seg Neutrophils # Man Lymphocytes # (Manual) Monocytes # (Manual) Eosinophils # (Manual) Nucleated RBC % Basophils # (Manual) PT INR APTT Heparin Anti-Xa Level ABG pH POC ABG pO2 ABG pO2 ABG HCO3 ABG O2 Saturation ABG Base Excess POC ABG pCO2 ABG Hemoglobin ABG Oxyhemoglobin ABG Glucose Oxyhemoglobin Sodium 153 H Potassium 3.5 L Chloride Carbon Dioxide 34 H BUN Creatinine 0.6 L Glucose 121 H POC Glucose 121 H 126 H Lactic Acid Calcium Phosphorus Magnesium AST ALT Lactate Dehydrogenase Total Bilirubin Direct Bilirubin CK-MB (CK-2) C-Reactive Protein NT-Pro-B Natriuret Pep Total Protein 5.9 L Albumin 2.4 L Arterial Blood Glucose Urine WBC (Auto) Urine Creatinine 01/07/20 01/08/20 01/08/20 18:12 00:03 05:41 WBC RBC Hgb Hct MCHC RDW MCV MCH Lymph % (Auto) [place] % (Auto) [place] # Eos # Lymph # (Auto) [place] # (Auto) Eos # (Auto) Seg Neutrophils % Seg Neuts % (Manual) Baso # (Auto) Lymphocytes % (Manual) Monocytes % (Manual) Eosinophils % (Manual) Basophils % (Manual) Seg Neutrophils # Seg Neutrophils # Man Lymphocytes # (Manual) Monocytes # (Manual) Eosinophils # (Manual) Nucleated RBC % Basophils # (Manual) PT INR APTT Heparin Anti-Xa Level ABG pH POC ABG pO2 ABG pO2 ABG HCO3 ABG O2 Saturation ABG Base Excess POC ABG pCO2 ABG Hemoglobin ABG Oxyhemoglobin ABG Glucose Oxyhemoglobin Sodium Potassium Chloride Carbon Dioxide BUN Creatinine Glucose POC Glucose 124 H 130 H 138 H Lactic Acid Calcium Phosphorus Magnesium AST ALT Lactate Dehydrogenase Total Bilirubin Direct Bilirubin CK-MB (CK-2) C-Reactive Protein NT-Pro-B Natriuret Pep Total Protein Albumin Arterial Blood Glucose Urine WBC (Auto) Urine Creatinine 01/08/20 01/08/20 01/08/20 09:28 11:42 18:21 WBC RBC Hgb Hct MCHC RDW MCV MCH Lymph % (Auto) [place] % (Auto) [place] # Eos # Lymph # (Auto) [place] # (Auto) Eos # (Auto) Seg Neutrophils % Seg Neuts % (Manual) Baso # (Auto) Lymphocytes % (Manual) Monocytes % (Manual) Eosinophils % (Manual) Basophils % (Manual) Seg Neutrophils # Seg Neutrophils # Man Lymphocytes # (Manual) Monocytes # (Manual) Eosinophils # (Manual) Nucleated RBC % Basophils # (Manual) PT INR APTT Heparin Anti-Xa Level ABG pH POC ABG pO2 ABG pO2 ABG HCO3 ABG O2 Saturation ABG Base Excess POC ABG pCO2 ABG Hemoglobin ABG Oxyhemoglobin ABG Glucose Oxyhemoglobin Sodium Potassium Chloride Carbon Dioxide BUN Creatinine Glucose POC Glucose 181 H 150 H 129 H Lactic Acid Calcium Phosphorus Magnesium AST ALT Lactate Dehydrogenase Total Bilirubin Direct Bilirubin CK-MB (CK-2) C-Reactive Protein NT-Pro-B Natriuret Pep Total Protein Albumin Arterial Blood Glucose Urine WBC (Auto) Urine Creatinine 01/08/20 01/08/20 01/09/20 19:25 23:55 04:11 WBC RBC 3.43 L Hgb 8.9 L Hct 28.7 L MCHC 31 L RDW 17.6 H MCV MCH 26 L Lymph % (Auto) [place] % (Auto) 8.6 H [place] # Eos # Lymph # (Auto) [place] # (Auto) Eos # (Auto) Seg Neutrophils % Seg Neuts % (Manual) Baso # (Auto) Lymphocytes % (Manual) Monocytes % (Manual) Eosinophils % (Manual) Basophils % (Manual) Seg Neutrophils # Seg Neutrophils # Man Lymphocytes # (Manual) Monocytes # (Manual) Eosinophils # (Manual) Nucleated RBC % Basophils # (Manual) PT INR APTT Heparin Anti-Xa Level ABG pH POC ABG pO2 ABG pO2 ABG HCO3 ABG O2 Saturation ABG Base Excess POC ABG pCO2 ABG Hemoglobin ABG Oxyhemoglobin ABG Glucose Oxyhemoglobin Sodium Potassium Chloride Carbon Dioxide BUN Creatinine 0.7 L Glucose 117 H POC Glucose 132 H Lactic Acid Calcium Phosphorus Magnesium AST ALT Lactate Dehydrogenase Total Bilirubin Direct Bilirubin CK-MB (CK-2) C-Reactive Protein NT-Pro-B Natriuret Pep Total Protein Albumin Arterial Blood Glucose Urine WBC (Auto) Urine Creatinine 01/09/20 01/09/20 01/09/20 04:11 05:38 22:58 WBC RBC Hgb Hct MCHC RDW MCV MCH Lymph % (Auto) [place] % (Auto) [place] # Eos # Lymph # (Auto) [place] # (Auto) Eos # (Auto) Seg Neutrophils % Seg Neuts % (Manual) Baso # (Auto) Lymphocytes % (Manual) Monocytes % (Manual) Eosinophils % (Manual) Basophils % (Manual) Seg Neutrophils # Seg Neutrophils # Man Lymphocytes # (Manual) Monocytes # (Manual) Eosinophils # (Manual) Nucleated RBC % Basophils # (Manual) PT INR APTT Heparin Anti-Xa Level ABG pH POC ABG pO2 ABG pO2 ABG HCO3 ABG O2 Saturation ABG Base Excess POC ABG pCO2 ABG Hemoglobin ABG Oxyhemoglobin ABG Glucose Oxyhemoglobin Sodium 147 H Potassium 3.3 L D Chloride Carbon Dioxide 32 H BUN Creatinine 0.6 L Glucose 106 H POC Glucose 107 H 113 H Lactic Acid Calcium Phosphorus Magnesium AST ALT Lactate Dehydrogenase Total Bilirubin Direct Bilirubin CK-MB (CK-2) C-Reactive Protein NT-Pro-B Natriuret Pep Total Protein Albumin Arterial Blood Glucose Urine WBC (Auto) Urine Creatinine 01/10/20 01/10/20 01/10/20 04:05 11:36 17:54 WBC RBC Hgb Hct MCHC RDW MCV MCH Lymph % (Auto) [place] % (Auto) [place] # Eos # Lymph # (Auto) [place] # (Auto) Eos # (Auto) Seg Neutrophils % Seg Neuts % (Manual) Baso # (Auto) Lymphocytes % (Manual) Monocytes % (Manual) Eosinophils % (Manual) Basophils % (Manual) Seg Neutrophils # Seg Neutrophils # Man Lymphocytes # (Manual) Monocytes # (Manual) Eosinophils # (Manual) Nucleated RBC % Basophils # (Manual) PT INR APTT Heparin Anti-Xa Level ABG pH POC ABG pO2 ABG pO2 ABG HCO3 ABG O2 Saturation ABG Base Excess POC ABG pCO2 ABG Hemoglobin ABG Oxyhemoglobin ABG Glucose Oxyhemoglobin Sodium Potassium Chloride Carbon Dioxide BUN Creatinine 0.7 L Glucose 110 H POC Glucose 129 H 117 H Lactic Acid Calcium Phosphorus Magnesium AST ALT Lactate Dehydrogenase Total Bilirubin Direct Bilirubin CK-MB (CK-2) C-Reactive Protein NT-Pro-B Natriuret Pep Total Protein Albumin Arterial Blood Glucose Urine WBC (Auto) Urine Creatinine 01/10/20 01/11/20 01/11/20 23:52 03:19 12:09 WBC RBC Hgb Hct MCHC RDW MCV MCH Lymph % (Auto) [place] % (Auto) [place] # Eos # Lymph # (Auto) [place] # (Auto) Eos # (Auto) Seg Neutrophils % Seg Neuts % (Manual) Baso # (Auto) Lymphocytes % (Manual) Monocytes % (Manual) Eosinophils % (Manual) Basophils % (Manual) Seg Neutrophils # Seg Neutrophils # Man Lymphocytes # (Manual) Monocytes # (Manual) Eosinophils # (Manual) Nucleated RBC % Basophils # (Manual) PT INR APTT Heparin Anti-Xa Level ABG pH POC ABG pO2 ABG pO2 ABG HCO3 ABG O2 Saturation ABG Base Excess POC ABG pCO2 ABG Hemoglobin ABG Oxyhemoglobin ABG Glucose Oxyhemoglobin Sodium Potassium Chloride Carbon Dioxide BUN Creatinine Glucose POC Glucose 117 H 136 H 115 H Lactic Acid Calcium Phosphorus Magnesium AST ALT Lactate Dehydrogenase Total Bilirubin Direct Bilirubin CK-MB (CK-2) C-Reactive Protein NT-Pro-B Natriuret Pep Total Protein Albumin Arterial Blood Glucose Urine WBC (Auto) Urine Creatinine 01/11/20 01/11/20 01/12/20 18:27 23:28 00:23 WBC RBC Hgb 9.8 L Hct 31.6 L MCHC 31 L RDW 17.8 H MCV 83 L MCH 26 L Lymph % (Auto) [place] % (Auto) 8.0 H [place] # Eos # Lymph # (Auto) [place] # (Auto) Eos # (Auto) Seg Neutrophils % Seg Neuts % (Manual) Baso # (Auto) Lymphocytes % (Manual) Monocytes % (Manual) Eosinophils % (Manual) Basophils % (Manual) Seg Neutrophils # Seg Neutrophils # Man Lymphocytes # (Manual) Monocytes # (Manual) Eosinophils # (Manual) Nucleated RBC % Basophils # (Manual) PT INR APTT Heparin Anti-Xa Level ABG pH POC ABG pO2 ABG pO2 ABG HCO3 ABG O2 Saturation ABG Base Excess POC ABG pCO2 ABG Hemoglobin ABG Oxyhemoglobin ABG Glucose Oxyhemoglobin Sodium Potassium Chloride Carbon Dioxide BUN Creatinine Glucose POC Glucose 118 H 122 H Lactic Acid Calcium Phosphorus Magnesium AST ALT Lactate Dehydrogenase Total Bilirubin Direct Bilirubin CK-MB (CK-2) C-Reactive Protein NT-Pro-B Natriuret Pep Total Protein Albumin Arterial Blood Glucose Urine WBC (Auto) Urine Creatinine 01/12/20 01/12/20 01/12/20 00:23 04:18 04:18 WBC RBC Hgb 9.6 L Hct 30.9 L MCHC 31 L RDW 17.3 H MCV 81 L MCH 25 L Lymph % (Auto) [place] % (Auto) [place] # Eos # Lymph # (Auto) [place] # (Auto) Eos # (Auto) Seg Neutrophils % Seg Neuts % (Manual) Baso # (Auto) Lymphocytes % (Manual) Monocytes % (Manual) Eosinophils % (Manual) Basophils % (Manual) Seg Neutrophils # Seg Neutrophils # Man Lymphocytes # (Manual) Monocytes # (Manual) Eosinophils # (Manual) Nucleated RBC % Basophils # (Manual) PT INR APTT Heparin Anti-Xa Level ABG pH POC ABG pO2 ABG pO2 ABG HCO3 ABG O2 Saturation ABG Base Excess POC ABG pCO2 ABG Hemoglobin ABG Oxyhemoglobin ABG Glucose Oxyhemoglobin Sodium Potassium Chloride Carbon Dioxide BUN Creatinine 0.7 L 0.7 L Glucose 111 H 108 H POC Glucose Lactic Acid Calcium Phosphorus Magnesium AST ALT Lactate Dehydrogenase Total Bilirubin Direct Bilirubin CK-MB (CK-2) C-Reactive Protein NT-Pro-B Natriuret Pep Total Protein Albumin 2.6 L Arterial Blood Glucose Urine WBC (Auto) Urine Creatinine 01/12/20 01/12/20 01/12/20 06:03 12:27 13:58 WBC RBC Hgb Hct MCHC RDW MCV MCH Lymph % (Auto) [place] % (Auto) [place] # Eos # Lymph # (Auto) [place] # (Auto) Eos # (Auto) Seg Neutrophils % Seg Neuts % (Manual) Baso # (Auto) Lymphocytes % (Manual) Monocytes % (Manual) Eosinophils % (Manual) Basophils % (Manual) Seg Neutrophils # Seg Neutrophils # Man Lymphocytes # (Manual) Monocytes # (Manual) Eosinophils # (Manual) Nucleated RBC % Basophils # (Manual) PT INR APTT Heparin Anti-Xa Level ABG pH 7.453 H POC ABG pO2 76.6 L ABG pO2 ABG HCO3 ABG O2 Saturation ABG Base Excess POC ABG pCO2 ABG Hemoglobin 10.3 L ABG Oxyhemoglobin ABG Glucose 99 H Oxyhemoglobin Sodium Potassium Chloride Carbon Dioxide BUN Creatinine Glucose POC Glucose 128 H 121 H Lactic Acid Calcium Phosphorus Magnesium AST ALT Lactate Dehydrogenase Total Bilirubin Direct Bilirubin CK-MB (CK-2) C-Reactive Protein NT-Pro-B Natriuret Pep Total Protein Albumin Arterial Blood Glucose 99 H Urine WBC (Auto) Urine Creatinine 10/20/20 10/21/20 10/21/20 18:24 12:01 17:46 WBC RBC Hgb Hct MCHC RDW MCV MCH Lymph % (Auto) [place] % (Auto) [place] # Eos # Lymph # (Auto) [place] # (Auto) Eos # (Auto) Seg Neutrophils % Seg Neuts % (Manual) Baso # (Auto) Lymphocytes % (Manual) Monocytes % (Manual) Eosinophils % (Manual) Basophils % (Manual) Seg Neutrophils # Seg Neutrophils # Man Lymphocytes # (Manual) Monocytes # (Manual) Eosinophils # (Manual) Nucleated RBC % Basophils # (Manual) PT INR APTT Heparin Anti-Xa Level ABG pH POC ABG pO2 ABG pO2 ABG HCO3 ABG O2 Saturation ABG Base Excess POC ABG pCO2 ABG Hemoglobin ABG Oxyhemoglobin ABG Glucose Oxyhemoglobin Sodium Potassium Chloride Carbon Dioxide BUN Creatinine Glucose POC Glucose 119 H 107 H 124 H Lactic Acid Calcium Phosphorus Magnesium AST ALT Lactate Dehydrogenase Total Bilirubin Direct Bilirubin CK-MB (CK-2) C-Reactive Protein NT-Pro-B Natriuret Pep Total Protein Albumin Arterial Blood Glucose Urine WBC (Auto) Urine Creatinine 01/13/20 01/14/20 01/14/20 20:40 00:10 05:33 WBC RBC Hgb Hct MCHC RDW MCV MCH Lymph % (Auto) [place] % (Auto) [place] # Eos # Lymph # (Auto) [place] # (Auto) Eos # (Auto) Seg Neutrophils % Seg Neuts % (Manual) Baso # (Auto) Lymphocytes % (Manual) Monocytes % (Manual) Eosinophils % (Manual) Basophils % (Manual) Seg Neutrophils # Seg Neutrophils # Man Lymphocytes # (Manual) Monocytes # (Manual) Eosinophils # (Manual) Nucleated RBC % Basophils # (Manual) PT INR APTT Heparin Anti-Xa Level ABG pH POC ABG pO2 ABG pO2 65.3 L ABG HCO3 31.8 H ABG O2 Saturation 93.5 L ABG Base Excess 6.7 H POC ABG pCO2 ABG Hemoglobin 13.3 L ABG Oxyhemoglobin ABG Glucose Oxyhemoglobin 90.9 L Sodium Potassium Chloride Carbon Dioxide BUN Creatinine Glucose POC Glucose 111 H 111 H Lactic Acid Calcium Phosphorus Magnesium AST ALT Lactate Dehydrogenase Total Bilirubin Direct Bilirubin CK-MB (CK-2) C-Reactive Protein NT-Pro-B Natriuret Pep Total Protein Albumin Arterial Blood Glucose Urine WBC (Auto) Urine Creatinine 01/14/20 01/14/20 01/14/20 12:10 16:14 16:14 WBC RBC Hgb 10.6 L Hct 34.2 L MCHC 31 L RDW 18.3 H MCV 83 L MCH 26 L Lymph % (Auto) [place] % (Auto) 7.4 H [place] # Eos # Lymph # (Auto) [place] # (Auto) Eos # (Auto) Seg Neutrophils % 71.9 H Seg Neuts % (Manual) Baso # (Auto) Lymphocytes % (Manual) Monocytes % (Manual) Eosinophils % (Manual) Basophils % (Manual) Seg Neutrophils # Seg Neutrophils # Man Lymphocytes # (Manual) Monocytes # (Manual) Eosinophils # (Manual) Nucleated RBC % Basophils # (Manual) PT INR APTT Heparin Anti-Xa Level ABG pH POC ABG pO2 ABG pO2 ABG HCO3 ABG O2 Saturation ABG Base Excess POC ABG pCO2 ABG Hemoglobin ABG Oxyhemoglobin ABG Glucose Oxyhemoglobin Sodium Potassium Chloride Carbon Dioxide 31 H BUN Creatinine 0.6 L Glucose 131 H POC Glucose 139 H Lactic Acid Calcium Phosphorus Magnesium AST ALT Lactate Dehydrogenase Total Bilirubin Direct Bilirubin CK-MB (CK-2) C-Reactive Protein NT-Pro-B Natriuret Pep Total Protein Albumin Arterial Blood Glucose Urine WBC (Auto) Urine Creatinine 01/14/20 01/15/20 01/15/20 18:05 00:52 05:35 WBC RBC Hgb Hct MCHC RDW MCV MCH Lymph % (Auto) [place] % (Auto) [place] # Eos # Lymph # (Auto) [place] # (Auto) Eos # (Auto) Seg Neutrophils % Seg Neuts % (Manual) Baso # (Auto) Lymphocytes % (Manual) Monocytes % (Manual) Eosinophils % (Manual) Basophils % (Manual) Seg Neutrophils # Seg Neutrophils # Man Lymphocytes # (Manual) Monocytes # (Manual) Eosinophils # (Manual) Nucleated RBC % Basophils # (Manual) PT INR APTT Heparin Anti-Xa Level ABG pH POC ABG pO2 ABG pO2 ABG HCO3 ABG O2 Saturation ABG Base Excess POC ABG pCO2 ABG Hemoglobin ABG Oxyhemoglobin ABG Glucose Oxyhemoglobin Sodium Potassium Chloride Carbon Dioxide BUN Creatinine Glucose POC Glucose 147 H 140 H 159 H Lactic Acid Calcium Phosphorus Magnesium AST ALT Lactate Dehydrogenase Total Bilirubin Direct Bilirubin CK-MB (CK-2) C-Reactive Protein NT-Pro-B Natriuret Pep Total Protein Albumin Arterial Blood Glucose Urine WBC (Auto) Urine Creatinine 01/15/20 01/15/20 01/16/20 12:52 17:43 00:32 WBC RBC Hgb Hct MCHC RDW MCV MCH Lymph % (Auto) [place] % (Auto) [place] # Eos # Lymph # (Auto) [place] # (Auto) Eos # (Auto) Seg Neutrophils % Seg Neuts % (Manual) Baso # (Auto) Lymphocytes % (Manual) Monocytes % (Manual) Eosinophils % (Manual) Basophils % (Manual) Seg Neutrophils # Seg Neutrophils # Man Lymphocytes # (Manual) Monocytes # (Manual) Eosinophils # (Manual) Nucleated RBC % Basophils # (Manual) PT INR APTT Heparin Anti-Xa Level ABG pH POC ABG pO2 ABG pO2 ABG HCO3 ABG O2 Saturation ABG Base Excess POC ABG pCO2 ABG Hemoglobin ABG Oxyhemoglobin ABG Glucose Oxyhemoglobin Sodium Potassium Chloride Carbon Dioxide BUN Creatinine Glucose POC Glucose 164 H 167 H 153 H Lactic Acid Calcium Phosphorus Magnesium AST ALT Lactate Dehydrogenase Total Bilirubin Direct Bilirubin CK-MB (CK-2) C-Reactive Protein NT-Pro-B Natriuret Pep Total Protein Albumin Arterial Blood Glucose Urine WBC (Auto) Urine Creatinine 01/16/20 01/16/20 01/17/20 05:46 11:48 06:38 WBC RBC Hgb Hct MCHC RDW MCV MCH Lymph % (Auto) [place] % (Auto) [place] # Eos # Lymph # (Auto) [place] # (Auto) Eos # (Auto) Seg Neutrophils % Seg Neuts % (Manual) Baso # (Auto) Lymphocytes % (Manual) Monocytes % (Manual) Eosinophils % (Manual) Basophils % (Manual) Seg Neutrophils # Seg Neutrophils # Man Lymphocytes # (Manual) Monocytes # (Manual) Eosinophils # (Manual) Nucleated RBC % Basophils # (Manual) PT INR APTT Heparin Anti-Xa Level ABG pH POC ABG pO2 ABG pO2 ABG HCO3 ABG O2 Saturation ABG Base Excess POC ABG pCO2 ABG Hemoglobin ABG Oxyhemoglobin ABG Glucose Oxyhemoglobin Sodium Potassium Chloride Carbon Dioxide BUN Creatinine Glucose POC Glucose 163 H 155 H 116 H Lactic Acid Calcium Phosphorus Magnesium AST ALT Lactate Dehydrogenase Total Bilirubin Direct Bilirubin CK-MB (CK-2) C-Reactive Protein NT-Pro-B Natriuret Pep Total Protein Albumin Arterial Blood Glucose Urine WBC (Auto) Urine Creatinine 01/17/20 01/17/20 01/18/20 11:36 17:43 00:12 WBC RBC Hgb Hct MCHC RDW MCV MCH Lymph % (Auto) [place] % (Auto) [place] # Eos # Lymph # (Auto) [place] # (Auto) Eos # (Auto) Seg Neutrophils % Seg Neuts % (Manual) Baso # (Auto) Lymphocytes % (Manual) Monocytes % (Manual) Eosinophils % (Manual) Basophils % (Manual) Seg Neutrophils # Seg Neutrophils # Man Lymphocytes # (Manual) Monocytes # (Manual) Eosinophils # (Manual) Nucleated RBC % Basophils # (Manual) PT INR APTT Heparin Anti-Xa Level ABG pH POC ABG pO2 ABG pO2 ABG HCO3 ABG O2 Saturation ABG Base Excess POC ABG pCO2 ABG Hemoglobin ABG Oxyhemoglobin ABG Glucose Oxyhemoglobin Sodium Potassium Chloride Carbon Dioxide BUN Creatinine Glucose POC Glucose 110 H 134 H 108 H Lactic Acid Calcium Phosphorus Magnesium AST ALT Lactate Dehydrogenase Total Bilirubin Direct Bilirubin CK-MB (CK-2) C-Reactive Protein NT-Pro-B Natriuret Pep Total Protein Albumin Arterial Blood Glucose Urine WBC (Auto) Urine Creatinine 01/18/20 01/18/20 01/18/20 05:37 06:46 06:46 WBC RBC Hgb 10.1 L Hct 32.2 L MCHC 31 L RDW 18.1 H MCV 81 L MCH 25 L Lymph % (Auto) [place] % (Auto) [place] # Eos # Lymph # (Auto) [place] # (Auto) Eos # (Auto) Seg Neutrophils % 71.9 H Seg Neuts % (Manual) Baso # (Auto) Lymphocytes % (Manual) Monocytes % (Manual) Eosinophils % (Manual) Basophils % (Manual) Seg Neutrophils # Seg Neutrophils # Man Lymphocytes # (Manual) Monocytes # (Manual) Eosinophils # (Manual) Nucleated RBC % Basophils # (Manual) PT INR APTT Heparin Anti-Xa Level ABG pH POC ABG pO2 ABG pO2 ABG HCO3 ABG O2 Saturation ABG Base Excess POC ABG pCO2 ABG Hemoglobin ABG Oxyhemoglobin ABG Glucose Oxyhemoglobin Sodium Potassium Chloride Carbon Dioxide BUN Creatinine 0.7 L Glucose 155 H POC Glucose 168 H Lactic Acid Calcium Phosphorus Magnesium AST ALT Lactate Dehydrogenase Total Bilirubin Direct Bilirubin CK-MB (CK-2) C-Reactive Protein NT-Pro-B Natriuret Pep Total Protein Albumin Arterial Blood Glucose Urine WBC (Auto) Urine Creatinine 01/18/20 01/18/20 01/18/20 12:05 17:14 23:28 WBC RBC Hgb Hct MCHC RDW MCV MCH Lymph % (Auto) [place] % (Auto) [place] # Eos # Lymph # (Auto) [place] # (Auto) Eos # (Auto) Seg Neutrophils % Seg Neuts % (Manual) Baso # (Auto) Lymphocytes % (Manual) Monocytes % (Manual) Eosinophils % (Manual) Basophils % (Manual) Seg Neutrophils # Seg Neutrophils # Man Lymphocytes # (Manual) Monocytes # (Manual) Eosinophils # (Manual) Nucleated RBC % Basophils # (Manual) PT INR APTT Heparin Anti-Xa Level ABG pH POC ABG pO2 ABG pO2 ABG HCO3 ABG O2 Saturation ABG Base Excess POC ABG pCO2 ABG Hemoglobin ABG Oxyhemoglobin ABG Glucose Oxyhemoglobin Sodium Potassium Chloride Carbon Dioxide BUN Creatinine Glucose POC Glucose 128 H 126 H 128 H Lactic Acid Calcium Phosphorus Magnesium AST ALT Lactate Dehydrogenase Total Bilirubin Direct Bilirubin CK-MB (CK-2) C-Reactive Protein NT-Pro-B Natriuret Pep Total Protein Albumin Arterial Blood Glucose Urine WBC (Auto) Urine Creatinine 01/19/20 01/19/20 01/19/20 05:39 12:33 17:36 WBC RBC Hgb Hct MCHC RDW MCV MCH Lymph % (Auto) [place] % (Auto) [place] # Eos # Lymph # (Auto) [place] # (Auto) Eos # (Auto) Seg Neutrophils % Seg Neuts % (Manual) Baso # (Auto) Lymphocytes % (Manual) Monocytes % (Manual) Eosinophils % (Manual) Basophils % (Manual) Seg Neutrophils # Seg Neutrophils # Man Lymphocytes # (Manual) Monocytes # (Manual) Eosinophils # (Manual) Nucleated RBC % Basophils # (Manual) PT INR APTT Heparin Anti-Xa Level ABG pH POC ABG pO2 ABG pO2 ABG HCO3 ABG O2 Saturation ABG Base Excess POC ABG pCO2 ABG Hemoglobin ABG Oxyhemoglobin ABG Glucose Oxyhemoglobin Sodium Potassium Chloride Carbon Dioxide BUN Creatinine Glucose POC Glucose 164 H 171 H 152 H Lactic Acid Calcium Phosphorus Magnesium AST ALT Lactate Dehydrogenase Total Bilirubin Direct Bilirubin CK-MB (CK-2) C-Reactive Protein NT-Pro-B Natriuret Pep Total Protein Albumin Arterial Blood Glucose Urine WBC (Auto) Urine Creatinine 01/20/20 01/20/20 01/20/20 00:12 05:20 05:35 WBC RBC Hgb 9.2 L Hct 29.4 L MCHC 31 L RDW 17.9 H MCV 81 L MCH 25 L Lymph % (Auto) [place] % (Auto) [place] # Eos # Lymph # (Auto) [place] # (Auto) Eos # (Auto) Seg Neutrophils % Seg Neuts % (Manual) Baso # (Auto) Lymphocytes % (Manual) Monocytes % (Manual) Eosinophils % (Manual) Basophils % (Manual) Seg Neutrophils # Seg Neutrophils # Man Lymphocytes # (Manual) Monocytes # (Manual) Eosinophils # (Manual) Nucleated RBC % Basophils # (Manual) PT INR APTT Heparin Anti-Xa Level ABG pH POC ABG pO2 ABG pO2 ABG HCO3 ABG O2 Saturation ABG Base Excess POC ABG pCO2 ABG Hemoglobin ABG Oxyhemoglobin ABG Glucose Oxyhemoglobin Sodium Potassium Chloride Carbon Dioxide BUN Creatinine Glucose POC Glucose 120 H 136 H Lactic Acid Calcium Phosphorus Magnesium AST ALT Lactate Dehydrogenase Total Bilirubin Direct Bilirubin CK-MB (CK-2) C-Reactive Protein NT-Pro-B Natriuret Pep Total Protein Albumin Arterial Blood Glucose Urine WBC (Auto) Urine Creatinine 01/20/20 01/20/20 01/20/20 05:40 11:58 14:55 WBC RBC Hgb 9.0 L Hct 28.3 L MCHC RDW MCV MCH Lymph % (Auto) [place] % (Auto) [place] # Eos # Lymph # (Auto) [place] # (Auto) Eos # (Auto) Seg Neutrophils % Seg Neuts % (Manual) Baso # (Auto) Lymphocytes % (Manual) Monocytes % (Manual) Eosinophils % (Manual) Basophils % (Manual) Seg Neutrophils # Seg Neutrophils # Man Lymphocytes # (Manual) Monocytes # (Manual) Eosinophils # (Manual) Nucleated RBC % Basophils # (Manual) PT INR APTT Heparin Anti-Xa Level ABG pH POC ABG pO2 ABG pO2 ABG HCO3 ABG O2 Saturation ABG Base Excess POC ABG pCO2 ABG Hemoglobin ABG Oxyhemoglobin ABG Glucose Oxyhemoglobin Sodium Potassium Chloride Carbon Dioxide 32 H BUN 22 H Creatinine 0.7 L Glucose 128 H POC Glucose 152 H Lactic Acid Calcium Phosphorus Magnesium AST ALT Lactate Dehydrogenase Total Bilirubin Direct Bilirubin CK-MB (CK-2) C-Reactive Protein NT-Pro-B Natriuret Pep Total Protein Albumin Arterial Blood Glucose Urine WBC (Auto) Urine Creatinine 01/20/20 01/20/20 01/20/20 14:55 18:14 21:35 WBC RBC Hgb Hct MCHC RDW MCV MCH Lymph % (Auto) [place] % (Auto) [place] # Eos # Lymph # (Auto) [place] # (Auto) Eos # (Auto) Seg Neutrophils % Seg Neuts % (Manual) Baso # (Auto) Lymphocytes % (Manual) Monocytes % (Manual) Eosinophils % (Manual) Basophils % (Manual) Seg Neutrophils # Seg Neutrophils # Man Lymphocytes # (Manual) Monocytes # (Manual) Eosinophils # (Manual) Nucleated RBC % Basophils # (Manual) PT 20.4 H INR 1.72 H APTT 40.6 H Heparin Anti-Xa Level > 2.00 H ABG pH POC ABG pO2 ABG pO2 ABG HCO3 ABG O2 Saturation ABG Base Excess POC ABG pCO2 ABG Hemoglobin ABG Oxyhemoglobin ABG Glucose Oxyhemoglobin Sodium Potassium Chloride Carbon Dioxide BUN Creatinine Glucose POC Glucose 150 H Lactic Acid Calcium Phosphorus Magnesium AST ALT Lactate Dehydrogenase Total Bilirubin Direct Bilirubin CK-MB (CK-2) C-Reactive Protein NT-Pro-B Natriuret Pep Total Protein Albumin Arterial Blood Glucose Urine WBC (Auto) Urine Creatinine 01/21/20 01/21/20 01/21/20 00:30 05:47 05:59 WBC RBC Hgb Hct MCHC RDW MCV MCH Lymph % (Auto) [place] % (Auto) [place] # Eos # Lymph # (Auto) [place] # (Auto) Eos # (Auto) Seg Neutrophils % Seg Neuts % (Manual) Baso # (Auto) Lymphocytes % (Manual) Monocytes % (Manual) Eosinophils % (Manual) Basophils % (Manual) Seg Neutrophils # Seg Neutrophils # Man Lymphocytes # (Manual) Monocytes # (Manual) Eosinophils # (Manual) Nucleated RBC % Basophils # (Manual) PT INR APTT Heparin Anti-Xa Level 1.93 H ABG pH POC ABG pO2 ABG pO2 ABG HCO3 ABG O2 Saturation ABG Base Excess POC ABG pCO2 ABG Hemoglobin ABG Oxyhemoglobin ABG Glucose Oxyhemoglobin Sodium Potassium Chloride Carbon Dioxide BUN Creatinine Glucose POC Glucose 126 H 148 H Lactic Acid Calcium Phosphorus Magnesium AST ALT Lactate Dehydrogenase Total Bilirubin Direct Bilirubin CK-MB (CK-2) C-Reactive Protein NT-Pro-B Natriuret Pep Total Protein Albumin Arterial Blood Glucose Urine WBC (Auto) Urine Creatinine 01/21/20 01/21/20 01/21/20 12:32 18:20 23:54 WBC RBC Hgb Hct MCHC RDW MCV MCH Lymph % (Auto) [place] % (Auto) [place] # Eos # Lymph # (Auto) [place] # (Auto) Eos # (Auto) Seg Neutrophils % Seg Neuts % (Manual) Baso # (Auto) Lymphocytes % (Manual) Monocytes % (Manual) Eosinophils % (Manual) Basophils % (Manual) Seg Neutrophils # Seg Neutrophils # Man Lymphocytes # (Manual) Monocytes # (Manual) Eosinophils # (Manual) Nucleated RBC % Basophils # (Manual) PT INR APTT Heparin Anti-Xa Level 1.28 H ABG pH POC ABG pO2 ABG pO2 ABG HCO3 ABG O2 Saturation ABG Base Excess POC ABG pCO2 ABG Hemoglobin ABG Oxyhemoglobin ABG Glucose Oxyhemoglobin Sodium Potassium Chloride Carbon Dioxide BUN Creatinine Glucose POC Glucose 112 H 146 H Lactic Acid Calcium Phosphorus Magnesium AST ALT Lactate Dehydrogenase Total Bilirubin Direct Bilirubin CK-MB (CK-2) C-Reactive Protein NT-Pro-B Natriuret Pep Total Protein Albumin Arterial Blood Glucose Urine WBC (Auto) Urine Creatinine 01/22/20 01/22/20 01/22/20 04:45 04:45 05:48 WBC RBC Hgb 9.3 L Hct 29.0 L MCHC RDW MCV MCH Lymph % (Auto) Gregg % (Auto) Gregg # Eos # Lymph # (Auto) Gregg # (Auto) Eos # (Auto) Seg Neutrophils % Seg Neuts % (Manual) Baso # (Auto) Lymphocytes % (Manual) Monocytes % (Manual) Eosinophils % (Manual) Basophils % (Manual) Seg Neutrophils # Seg Neutrophils # Man Lymphocytes # (Manual) Monocytes # (Manual) Eosinophils # (Manual) Nucleated RBC % Basophils # (Manual) PT INR APTT Heparin Anti-Xa Level 1.34 H ABG pH POC ABG pO2 ABG pO2 ABG HCO3 ABG O2 Saturation ABG Base Excess POC ABG pCO2 ABG Hemoglobin ABG Oxyhemoglobin ABG Glucose Oxyhemoglobin Sodium Potassium Chloride Carbon Dioxide BUN Creatinine Glucose POC Glucose 142 H Lactic Acid Calcium Phosphorus Magnesium AST ALT Lactate Dehydrogenase Total Bilirubin Direct Bilirubin CK-MB (CK-2) C-Reactive Protein NT-Pro-B Natriuret Pep Total Protein Albumin Arterial Blood Glucose Urine WBC (Auto) Urine Creatinine 01/22/20 01/22/20 01/22/20 08:09 08:22 09:58 WBC RBC Hgb Hct MCHC RDW MCV MCH Lymph % (Auto) [place] % (Auto) [place] # Eos # Lymph # (Auto) [place] # (Auto) Eos # (Auto) Seg Neutrophils % Seg Neuts % (Manual) Baso # (Auto) Lymphocytes % (Manual) Monocytes % (Manual) Eosinophils % (Manual) Basophils % (Manual) Seg Neutrophils # Seg Neutrophils # Man Lymphocytes # (Manual) Monocytes # (Manual) Eosinophils # (Manual) Nucleated RBC % Basophils # (Manual) PT 16.9 H INR 1.34 H APTT Heparin Anti-Xa Level ABG pH POC ABG pO2 ABG pO2 ABG HCO3 ABG O2 Saturation ABG Base Excess POC ABG pCO2 ABG Hemoglobin ABG Oxyhemoglobin ABG Glucose Oxyhemoglobin Sodium Potassium Chloride 97.8 L Carbon Dioxide BUN 29 H Creatinine Glucose 128 H POC Glucose 131 H Lactic Acid Calcium Phosphorus Magnesium AST ALT Lactate Dehydrogenase Total Bilirubin Direct Bilirubin CK-MB (CK-2) C-Reactive Protein NT-Pro-B Natriuret Pep Total Protein Albumin Arterial Blood Glucose Urine WBC (Auto) Urine Creatinine 01/22/20 01/22/20 01/22/20 12:44 16:13 18:18 WBC RBC Hgb Hct MCHC RDW MCV MCH Lymph % (Auto) [place] % (Auto) [place] # Eos # Lymph # (Auto) [place] # (Auto) Eos # (Auto) Seg Neutrophils % Seg Neuts % (Manual) Baso # (Auto) Lymphocytes % (Manual) Monocytes % (Manual) Eosinophils % (Manual) Basophils % (Manual) Seg Neutrophils # Seg Neutrophils # Man Lymphocytes # (Manual) Monocytes # (Manual) Eosinophils # (Manual) Nucleated RBC % Basophils # (Manual) PT INR APTT Heparin Anti-Xa Level ABG pH POC ABG pO2 ABG pO2 ABG HCO3 ABG O2 Saturation ABG Base Excess POC ABG pCO2 ABG Hemoglobin ABG Oxyhemoglobin ABG Glucose Oxyhemoglobin Sodium Potassium Chloride Carbon Dioxide BUN Creatinine Glucose POC Glucose 156 H 133 H 155 H Lactic Acid Calcium Phosphorus Magnesium AST ALT Lactate Dehydrogenase Total Bilirubin Direct Bilirubin CK-MB (CK-2) C-Reactive Protein NT-Pro-B Natriuret Pep Total Protein Albumin Arterial Blood Glucose Urine WBC (Auto) Urine Creatinine 01/22/20 01/23/20 01/23/20 23:22 05:37 12:59 WBC RBC Hgb Hct MCHC RDW MCV MCH Lymph % (Auto) [place] % (Auto) [place] # Eos # Lymph # (Auto) [place] # (Auto) Eos # (Auto) Seg Neutrophils % Seg Neuts % (Manual) Baso # (Auto) Lymphocytes % (Manual) Monocytes % (Manual) Eosinophils % (Manual) Basophils % (Manual) Seg Neutrophils # Seg Neutrophils # Man Lymphocytes # (Manual) Monocytes # (Manual) Eosinophils # (Manual) Nucleated RBC % Basophils # (Manual) PT INR APTT Heparin Anti-Xa Level ABG pH POC ABG pO2 ABG pO2 ABG HCO3 ABG O2 Saturation ABG Base Excess POC ABG pCO2 ABG Hemoglobin ABG Oxyhemoglobin ABG Glucose Oxyhemoglobin Sodium Potassium Chloride Carbon Dioxide BUN Creatinine Glucose POC Glucose 148 H 163 H 175 H Lactic Acid Calcium Phosphorus Magnesium AST ALT Lactate Dehydrogenase Total Bilirubin Direct Bilirubin CK-MB (CK-2) C-Reactive Protein NT-Pro-B Natriuret Pep Total Protein Albumin Arterial Blood Glucose Urine WBC (Auto) Urine Creatinine 01/23/20 01/23/20 01/24/20 17:28 23:56 04:30 WBC RBC 3.46 L Hgb 8.8 L Hct 27.8 L MCHC RDW 18.2 H MCV 81 L MCH 25 L Lymph % (Auto) [place] % (Auto) 7.8 H [place] # Eos # Lymph # (Auto) [place] # (Auto) Eos # (Auto) Seg Neutrophils % Seg Neuts % (Manual) Baso # (Auto) Lymphocytes % (Manual) Monocytes % (Manual) Eosinophils % (Manual) Basophils % (Manual) Seg Neutrophils # Seg Neutrophils # Man Lymphocytes # (Manual) Monocytes # (Manual) Eosinophils # (Manual) Nucleated RBC % Basophils # (Manual) PT INR APTT Heparin Anti-Xa Level ABG pH POC ABG pO2 ABG pO2 ABG HCO3 ABG O2 Saturation ABG Base Excess POC ABG pCO2 ABG Hemoglobin ABG Oxyhemoglobin ABG Glucose Oxyhemoglobin Sodium Potassium Chloride Carbon Dioxide BUN Creatinine Glucose POC Glucose 165 H 177 H Lactic Acid Calcium Phosphorus Magnesium AST ALT Lactate Dehydrogenase Total Bilirubin Direct Bilirubin CK-MB (CK-2) C-Reactive Protein NT-Pro-B Natriuret Pep Total Protein Albumin Arterial Blood Glucose Urine WBC (Auto) Urine Creatinine 01/24/20 01/24/20 01/24/20 04:30 07:18 12:06 WBC RBC Hgb Hct MCHC RDW MCV MCH Lymph % (Auto) [place] % (Auto) [place] # Eos # Lymph # (Auto) [place] # (Auto) Eos # (Auto) Seg Neutrophils % Seg Neuts % (Manual) Baso # (Auto) Lymphocytes % (Manual) Monocytes % (Manual) Eosinophils % (Manual) Basophils % (Manual) Seg Neutrophils # Seg Neutrophils # Man Lymphocytes # (Manual) Monocytes # (Manual) Eosinophils # (Manual) Nucleated RBC % Basophils # (Manual) PT INR APTT Heparin Anti-Xa Level ABG pH POC ABG pO2 ABG pO2 ABG HCO3 ABG O2 Saturation ABG Base Excess POC ABG pCO2 ABG Hemoglobin ABG Oxyhemoglobin ABG Glucose Oxyhemoglobin Sodium Potassium Chloride 97.9 L Carbon Dioxide BUN 31 H Creatinine Glucose 146 H POC Glucose 151 H 133 H Lactic Acid Calcium Phosphorus Magnesium AST ALT Lactate Dehydrogenase Total Bilirubin Direct Bilirubin CK-MB (CK-2) C-Reactive Protein NT-Pro-B Natriuret Pep Total Protein Albumin Arterial Blood Glucose Urine WBC (Auto) Urine Creatinine 01/24/20 01/25/20 01/25/20 17:36 00:08 04:25 WBC RBC 3.50 L Hgb 8.7 L Hct 27.9 L MCHC 31 L RDW 18.2 H MCV 80 L MCH 25 L Lymph % (Auto) [place] % (Auto) 8.5 H [place] # Eos # Lymph # (Auto) [place] # (Auto) Eos # (Auto) Seg Neutrophils % Seg Neuts % (Manual) Baso # (Auto) Lymphocytes % (Manual) Monocytes % (Manual) Eosinophils % (Manual) Basophils % (Manual) Seg Neutrophils # Seg Neutrophils # Man Lymphocytes # (Manual) Monocytes # (Manual) Eosinophils # (Manual) Nucleated RBC % Basophils # (Manual) PT INR APTT Heparin Anti-Xa Level ABG pH POC ABG pO2 ABG pO2 ABG HCO3 ABG O2 Saturation ABG Base Excess POC ABG pCO2 ABG Hemoglobin ABG Oxyhemoglobin ABG Glucose Oxyhemoglobin Sodium Potassium Chloride Carbon Dioxide BUN Creatinine Glucose POC Glucose 133 H 129 H Lactic Acid Calcium Phosphorus Magnesium AST ALT Lactate Dehydrogenase Total Bilirubin Direct Bilirubin CK-MB (CK-2) C-Reactive Protein NT-Pro-B Natriuret Pep Total Protein Albumin Arterial Blood Glucose Urine WBC (Auto) Urine Creatinine 01/25/20 01/25/20 01/25/20 04:25 05:38 11:52 WBC RBC Hgb Hct MCHC RDW MCV MCH Lymph % (Auto) [place] % (Auto) [place] # Eos # Lymph # (Auto) [place] # (Auto) Eos # (Auto) Seg Neutrophils % Seg Neuts % (Manual) Baso # (Auto) Lymphocytes % (Manual) Monocytes % (Manual) Eosinophils % (Manual) Basophils % (Manual) Seg Neutrophils # Seg Neutrophils # Man Lymphocytes # (Manual) Monocytes # (Manual) Eosinophils # (Manual) Nucleated RBC % Basophils # (Manual) PT INR APTT Heparin Anti-Xa Level ABG pH POC ABG pO2 ABG pO2 ABG HCO3 ABG O2 Saturation ABG Base Excess POC ABG pCO2 ABG Hemoglobin ABG Oxyhemoglobin ABG Glucose Oxyhemoglobin Sodium Potassium Chloride Carbon Dioxide BUN 30 H Creatinine Glucose 134 H POC Glucose 129 H 134 H Lactic Acid Calcium Phosphorus Magnesium AST ALT Lactate Dehydrogenase Total Bilirubin Direct Bilirubin CK-MB (CK-2) C-Reactive Protein NT-Pro-B Natriuret Pep Total Protein Albumin Arterial Blood Glucose Urine WBC (Auto) Urine Creatinine 01/25/20 01/25/20 01/26/20 17:13 21:02 00:59 WBC RBC Hgb Hct MCHC RDW MCV MCH Lymph % (Auto) [place] % (Auto) [place] # Eos # Lymph # (Auto) [place] # (Auto) Eos # (Auto) Seg Neutrophils % Seg Neuts % (Manual) Baso # (Auto) Lymphocytes % (Manual) Monocytes % (Manual) Eosinophils % (Manual) Basophils % (Manual) Seg Neutrophils # Seg Neutrophils # Man Lymphocytes # (Manual) Monocytes # (Manual) Eosinophils # (Manual) Nucleated RBC % Basophils # (Manual) PT INR APTT Heparin Anti-Xa Level ABG pH POC ABG pO2 ABG pO2 57.5 L ABG HCO3 31.7 H ABG O2 Saturation 90.3 L ABG Base Excess 6.6 H POC ABG pCO2 ABG Hemoglobin 13.0 L ABG Oxyhemoglobin ABG Glucose Oxyhemoglobin 87.5 L Sodium Potassium Chloride Carbon Dioxide BUN Creatinine Glucose POC Glucose 124 H 196 H Lactic Acid Calcium Phosphorus Magnesium AST ALT Lactate Dehydrogenase Total Bilirubin Direct Bilirubin CK-MB (CK-2) C-Reactive Protein NT-Pro-B Natriuret Pep Total Protein Albumin Arterial Blood Glucose Urine WBC (Auto) Urine Creatinine 01/26/20 01/26/20 01/26/20 03:20 05:46 12:46 WBC RBC Hgb 9.2 L Hct 29.4 L MCHC RDW MCV MCH Lymph % (Auto) [place] % (Auto) [place] # Eos # Lymph # (Auto) [place] # (Auto) Eos # (Auto) Seg Neutrophils % Seg Neuts % (Manual) Baso # (Auto) Lymphocytes % (Manual) Monocytes % (Manual) Eosinophils % (Manual) Basophils % (Manual) Seg Neutrophils # Seg Neutrophils # Man Lymphocytes # (Manual) Monocytes # (Manual) Eosinophils # (Manual) Nucleated RBC % Basophils # (Manual) PT INR APTT Heparin Anti-Xa Level ABG pH POC ABG pO2 ABG pO2 ABG HCO3 ABG O2 Saturation ABG Base Excess POC ABG pCO2 ABG Hemoglobin ABG Oxyhemoglobin ABG Glucose Oxyhemoglobin Sodium Potassium Chloride Carbon Dioxide BUN Creatinine Glucose POC Glucose 141 H 122 H Lactic Acid Calcium Phosphorus Magnesium AST ALT Lactate Dehydrogenase Total Bilirubin Direct Bilirubin CK-MB (CK-2) C-Reactive Protein NT-Pro-B Natriuret Pep Total Protein Albumin Arterial Blood Glucose Urine WBC (Auto) Urine Creatinine 01/26/20 01/26/20 01/27/20 18:03 23:55 04:47 WBC RBC Hgb Hct MCHC RDW MCV MCH Lymph % (Auto) [place] % (Auto) [place] # Eos # Lymph # (Auto) [place] # (Auto) Eos # (Auto) Seg Neutrophils % Seg Neuts % (Manual) Baso # (Auto) Lymphocytes % (Manual) Monocytes % (Manual) Eosinophils % (Manual) Basophils % (Manual) Seg Neutrophils # Seg Neutrophils # Man Lymphocytes # (Manual) Monocytes # (Manual) Eosinophils # (Manual) Nucleated RBC % Basophils # (Manual) PT INR APTT Heparin Anti-Xa Level ABG pH POC ABG pO2 ABG pO2 ABG HCO3 ABG O2 Saturation ABG Base Excess POC ABG pCO2 ABG Hemoglobin ABG Oxyhemoglobin ABG Glucose Oxyhemoglobin Sodium Potassium Chloride Carbon Dioxide BUN 30 H Creatinine 0.7 L Glucose 135 H POC Glucose 142 H 159 H Lactic Acid Calcium Phosphorus Magnesium AST ALT Lactate Dehydrogenase Total Bilirubin Direct Bilirubin CK-MB (CK-2) C-Reactive Protein NT-Pro-B Natriuret Pep Total Protein Albumin Arterial Blood Glucose Urine WBC (Auto) Urine Creatinine 01/27/20 01/27/20 01/27/20 05:43 12:06 17:16 WBC RBC Hgb Hct MCHC RDW MCV MCH Lymph % (Auto) [place] % (Auto) [place] # Eos # Lymph # (Auto) [place] # (Auto) Eos # (Auto) Seg Neutrophils % Seg Neuts % (Manual) Baso # (Auto) Lymphocytes % (Manual) Monocytes % (Manual) Eosinophils % (Manual) Basophils % (Manual) Seg Neutrophils # Seg Neutrophils # Man Lymphocytes # (Manual) Monocytes # (Manual) Eosinophils # (Manual) Nucleated RBC % Basophils # (Manual) PT INR APTT Heparin Anti-Xa Level ABG pH POC ABG pO2 ABG pO2 ABG HCO3 ABG O2 Saturation ABG Base Excess POC ABG pCO2 ABG Hemoglobin ABG Oxyhemoglobin ABG Glucose Oxyhemoglobin Sodium Potassium Chloride Carbon Dioxide BUN Creatinine Glucose POC Glucose 143 H 142 H 128 H Lactic Acid Calcium Phosphorus Magnesium AST ALT Lactate Dehydrogenase Total Bilirubin Direct Bilirubin CK-MB (CK-2) C-Reactive Protein NT-Pro-B Natriuret Pep Total Protein Albumin Arterial Blood Glucose Urine WBC (Auto) Urine Creatinine 01/27/20 01/28/20 01/28/20 23:55 04:37 05:55 WBC RBC Hgb 9.4 L Hct 29.9 L MCHC RDW MCV MCH Lymph % (Auto) [place] % (Auto) [place] # Eos # Lymph # (Auto) [place] # (Auto) Eos # (Auto) Seg Neutrophils % Seg Neuts % (Manual) Baso # (Auto) Lymphocytes % (Manual) Monocytes % (Manual) Eosinophils % (Manual) Basophils % (Manual) Seg Neutrophils # Seg Neutrophils # Man Lymphocytes # (Manual) Monocytes # (Manual) Eosinophils # (Manual) Nucleated RBC % Basophils # (Manual) PT INR APTT Heparin Anti-Xa Level ABG pH POC ABG pO2 ABG pO2 ABG HCO3 ABG O2 Saturation ABG Base Excess POC ABG pCO2 ABG Hemoglobin ABG Oxyhemoglobin ABG Glucose Oxyhemoglobin Sodium Potassium Chloride Carbon Dioxide BUN Creatinine Glucose POC Glucose 166 H 169 H Lactic Acid Calcium Phosphorus Magnesium AST ALT Lactate Dehydrogenase Total Bilirubin Direct Bilirubin CK-MB (CK-2) C-Reactive Protein NT-Pro-B Natriuret Pep Total Protein Albumin Arterial Blood Glucose Urine WBC (Auto) Urine Creatinine 01/28/20 01/28/20 01/28/20 11:58 17:26 23:46 WBC RBC Hgb Hct MCHC RDW MCV MCH Lymph % (Auto) [place] % (Auto) [place] # Eos # Lymph # (Auto) [place] # (Auto) Eos # (Auto) Seg Neutrophils % Seg Neuts % (Manual) Baso # (Auto) Lymphocytes % (Manual) Monocytes % (Manual) Eosinophils % (Manual) Basophils % (Manual) Seg Neutrophils # Seg Neutrophils # Man Lymphocytes # (Manual) Monocytes # (Manual) Eosinophils # (Manual) Nucleated RBC % Basophils # (Manual) PT INR APTT Heparin Anti-Xa Level ABG pH POC ABG pO2 ABG pO2 ABG HCO3 ABG O2 Saturation ABG Base Excess POC ABG pCO2 ABG Hemoglobin ABG Oxyhemoglobin ABG Glucose Oxyhemoglobin Sodium Potassium Chloride Carbon Dioxide BUN Creatinine Glucose POC Glucose 130 H 126 H 150 H Lactic Acid Calcium Phosphorus Magnesium AST ALT Lactate Dehydrogenase Total Bilirubin Direct Bilirubin CK-MB (CK-2) C-Reactive Protein NT-Pro-B Natriuret Pep Total Protein Albumin Arterial Blood Glucose Urine WBC (Auto) Urine Creatinine 01/29/20 01/29/20 01/29/20 04:55 06:00 12:28 WBC RBC Hgb Hct MCHC RDW MCV MCH Lymph % (Auto) [place] % (Auto) [place] # Eos # Lymph # (Auto) [place] # (Auto) Eos # (Auto) Seg Neutrophils % Seg Neuts % (Manual) Baso # (Auto) Lymphocytes % (Manual) Monocytes % (Manual) Eosinophils % (Manual) Basophils % (Manual) Seg Neutrophils # Seg Neutrophils # Man Lymphocytes # (Manual) Monocytes # (Manual) Eosinophils # (Manual) Nucleated RBC % Basophils # (Manual) PT INR APTT Heparin Anti-Xa Level ABG pH POC ABG pO2 ABG pO2 ABG HCO3 ABG O2 Saturation ABG Base Excess POC ABG pCO2 ABG Hemoglobin ABG Oxyhemoglobin ABG Glucose Oxyhemoglobin Sodium Potassium Chloride Carbon Dioxide 34 H BUN Creatinine 0.6 L Glucose 152 H POC Glucose 157 H 156 H Lactic Acid Calcium Phosphorus Magnesium AST ALT Lactate Dehydrogenase Total Bilirubin Direct Bilirubin CK-MB (CK-2) C-Reactive Protein NT-Pro-B Natriuret Pep Total Protein Albumin Arterial Blood Glucose Urine WBC (Auto) Urine Creatinine 01/29/20 01/30/20 01/30/20 19:06 00:29 05:39 WBC RBC Hgb Hct MCHC RDW MCV MCH Lymph % (Auto) [place] % (Auto) [place] # Eos # Lymph # (Auto) [place] # (Auto) Eos # (Auto) Seg Neutrophils % Seg Neuts % (Manual) Baso # (Auto) Lymphocytes % (Manual) Monocytes % (Manual) Eosinophils % (Manual) Basophils % (Manual) Seg Neutrophils # Seg Neutrophils # Man Lymphocytes # (Manual) Monocytes # (Manual) Eosinophils # (Manual) Nucleated RBC % Basophils # (Manual) PT INR APTT Heparin Anti-Xa Level ABG pH POC ABG pO2 ABG pO2 ABG HCO3 ABG O2 Saturation ABG Base Excess POC ABG pCO2 ABG Hemoglobin ABG Oxyhemoglobin ABG Glucose Oxyhemoglobin Sodium Potassium Chloride Carbon Dioxide BUN Creatinine Glucose POC Glucose 152 H 132 H 159 H Lactic Acid Calcium Phosphorus Magnesium AST ALT Lactate Dehydrogenase Total Bilirubin Direct Bilirubin CK-MB (CK-2) C-Reactive Protein NT-Pro-B Natriuret Pep Total Protein Albumin Arterial Blood Glucose Urine WBC (Auto) Urine Creatinine 01/30/20 01/30/20 01/30/20 12:27 17:42 23:28 WBC RBC Hgb Hct MCHC RDW MCV MCH Lymph % (Auto) [place] % (Auto) [place] # Eos # Lymph # (Auto) [place] # (Auto) Eos # (Auto) Seg Neutrophils % Seg Neuts % (Manual) Baso # (Auto) Lymphocytes % (Manual) Monocytes % (Manual) Eosinophils % (Manual) Basophils % (Manual) Seg Neutrophils # Seg Neutrophils # Man Lymphocytes # (Manual) Monocytes # (Manual) Eosinophils # (Manual) Nucleated RBC % Basophils # (Manual) PT INR APTT Heparin Anti-Xa Level ABG pH POC ABG pO2 ABG pO2 ABG HCO3 ABG O2 Saturation ABG Base Excess POC ABG pCO2 ABG Hemoglobin ABG Oxyhemoglobin ABG Glucose Oxyhemoglobin Sodium Potassium Chloride Carbon Dioxide BUN Creatinine Glucose POC Glucose 151 H 144 H 164 H Lactic Acid Calcium Phosphorus Magnesium AST ALT Lactate Dehydrogenase Total Bilirubin Direct Bilirubin CK-MB (CK-2) C-Reactive Protein NT-Pro-B Natriuret Pep Total Protein Albumin Arterial Blood Glucose Urine WBC (Auto) Urine Creatinine 01/31/20 01/31/20 01/31/20 05:51 11:51 18:06 WBC RBC Hgb Hct MCHC RDW MCV MCH Lymph % (Auto) [place] % (Auto) [place] # Eos # Lymph # (Auto) [place] # (Auto) Eos # (Auto) Seg Neutrophils % Seg Neuts % (Manual) Baso # (Auto) Lymphocytes % (Manual) Monocytes % (Manual) Eosinophils % (Manual) Basophils % (Manual) Seg Neutrophils # Seg Neutrophils # Man Lymphocytes # (Manual) Monocytes # (Manual) Eosinophils # (Manual) Nucleated RBC % Basophils # (Manual) PT INR APTT Heparin Anti-Xa Level ABG pH POC ABG pO2 ABG pO2 ABG HCO3 ABG O2 Saturation ABG Base Excess POC ABG pCO2 ABG Hemoglobin ABG Oxyhemoglobin ABG Glucose Oxyhemoglobin Sodium Potassium Chloride Carbon Dioxide BUN Creatinine Glucose POC Glucose 131 H 167 H 210 H Lactic Acid Calcium Phosphorus Magnesium AST ALT Lactate Dehydrogenase Total Bilirubin Direct Bilirubin CK-MB (CK-2) C-Reactive Protein NT-Pro-B Natriuret Pep Total Protein Albumin Arterial Blood Glucose Urine WBC (Auto) Urine Creatinine 01/31/20 01/31/20 02/01/20 19:24 Unknown 00:34 WBC RBC Hgb Hct MCHC RDW MCV MCH Lymph % (Auto) [place] % (Auto) [place] # Eos # Lymph # (Auto) [place] # (Auto) Eos # (Auto) Seg Neutrophils % Seg Neuts % (Manual) Baso # (Auto) Lymphocytes % (Manual) Monocytes % (Manual) Eosinophils % (Manual) Basophils % (Manual) Seg Neutrophils # Seg Neutrophils # Man Lymphocytes # (Manual) Monocytes # (Manual) Eosinophils # (Manual) Nucleated RBC % Basophils # (Manual) PT INR APTT Heparin Anti-Xa Level ABG pH POC ABG pO2 ABG pO2 ABG HCO3 ABG O2 Saturation ABG Base Excess POC ABG pCO2 ABG Hemoglobin ABG Oxyhemoglobin ABG Glucose Oxyhemoglobin Sodium Potassium Chloride 95.3 L Carbon Dioxide 33 H BUN 36 H Creatinine Glucose 187 H POC Glucose 116 H Lactic Acid Calcium Phosphorus Magnesium AST ALT Lactate Dehydrogenase Total Bilirubin Direct Bilirubin CK-MB (CK-2) C-Reactive Protein NT-Pro-B Natriuret Pep Total Protein Albumin Arterial Blood Glucose Urine WBC (Auto) Urine Creatinine 57.4 H 02/01/20 02/01/20 02/01/20 05:24 10:40 12:29 WBC RBC Hgb Hct MCHC RDW MCV MCH Lymph % (Auto) [place] % (Auto) [place] # Eos # Lymph # (Auto) [place] # (Auto) Eos # (Auto) Seg Neutrophils % Seg Neuts % (Manual) Baso # (Auto) Lymphocytes % (Manual) Monocytes % (Manual) Eosinophils % (Manual) Basophils % (Manual) Seg Neutrophils # Seg Neutrophils # Man Lymphocytes # (Manual) Monocytes # (Manual) Eosinophils # (Manual) Nucleated RBC % Basophils # (Manual) PT INR APTT Heparin Anti-Xa Level ABG pH POC ABG pO2 ABG pO2 ABG HCO3 ABG O2 Saturation ABG Base Excess POC ABG pCO2 ABG Hemoglobin ABG Oxyhemoglobin ABG Glucose Oxyhemoglobin Sodium Potassium Chloride Carbon Dioxide BUN Creatinine Glucose POC Glucose 142 H 165 H 151 H Lactic Acid Calcium Phosphorus Magnesium AST ALT Lactate Dehydrogenase Total Bilirubin Direct Bilirubin CK-MB (CK-2) C-Reactive Protein NT-Pro-B Natriuret Pep Total Protein Albumin Arterial Blood Glucose Urine WBC (Auto) Urine Creatinine 02/01/20 02/01/20 02/02/20 17:16 23:23 06:36 WBC RBC Hgb Hct MCHC RDW MCV MCH Lymph % (Auto) [place] % (Auto) [place] # Eos # Lymph # (Auto) [place] # (Auto) Eos # (Auto) Seg Neutrophils % Seg Neuts % (Manual) Baso # (Auto) Lymphocytes % (Manual) Monocytes % (Manual) Eosinophils % (Manual) Basophils % (Manual) Seg Neutrophils # Seg Neutrophils # Man Lymphocytes # (Manual) Monocytes # (Manual) Eosinophils # (Manual) Nucleated RBC % Basophils # (Manual) PT INR APTT Heparin Anti-Xa Level ABG pH POC ABG pO2 ABG pO2 ABG HCO3 ABG O2 Saturation ABG Base Excess POC ABG pCO2 ABG Hemoglobin ABG Oxyhemoglobin ABG Glucose Oxyhemoglobin Sodium Potassium Chloride Carbon Dioxide BUN Creatinine Glucose POC Glucose 137 H 145 H 181 H Lactic Acid Calcium Phosphorus Magnesium AST ALT Lactate Dehydrogenase Total Bilirubin Direct Bilirubin CK-MB (CK-2) C-Reactive Protein NT-Pro-B Natriuret Pep Total Protein Albumin Arterial Blood Glucose Urine WBC (Auto) Urine Creatinine 02/02/20 02/02/20 02/02/20 10:01 12:05 17:54 WBC RBC Hgb Hct MCHC RDW MCV MCH Lymph % (Auto) [place] % (Auto) [place] # Eos # Lymph # (Auto) [place] # (Auto) Eos # (Auto) Seg Neutrophils % Seg Neuts % (Manual) Baso # (Auto) Lymphocytes % (Manual) Monocytes % (Manual) Eosinophils % (Manual) Basophils % (Manual) Seg Neutrophils # Seg Neutrophils # Man Lymphocytes # (Manual) Monocytes # (Manual) Eosinophils # (Manual) Nucleated RBC % Basophils # (Manual) PT INR APTT Heparin Anti-Xa Level ABG pH POC ABG pO2 ABG pO2 ABG HCO3 ABG O2 Saturation ABG Base Excess POC ABG pCO2 ABG Hemoglobin ABG Oxyhemoglobin ABG Glucose Oxyhemoglobin Sodium Potassium Chloride 95.3 L Carbon Dioxide BUN 44 H Creatinine Glucose 234 H POC Glucose 184 H 127 H Lactic Acid Calcium Phosphorus Magnesium AST 363 H ALT 457 H Lactate Dehydrogenase Total Bilirubin Direct Bilirubin CK-MB (CK-2) C-Reactive Protein NT-Pro-B Natriuret Pep Total Protein Albumin 3.0 L Arterial Blood Glucose Urine WBC (Auto) Urine Creatinine 02/02/20 02/03/20 02/03/20 23:47 05:32 07:04 WBC 13.0 H RBC Hgb 9.5 L Hct 30.8 L MCHC 31 L RDW 19.6 H MCV 81 L MCH 25 L Lymph % (Auto) [place] % (Auto) 9.4 H [place] # Eos # Lymph # (Auto) [place] # (Auto) 1.2 H Eos # (Auto) Seg Neutrophils % 72.3 H Seg Neuts % (Manual) Baso # (Auto) Lymphocytes % (Manual) Monocytes % (Manual) Eosinophils % (Manual) Basophils % (Manual) Seg Neutrophils # 9.4 H Seg Neutrophils # Man Lymphocytes # (Manual) Monocytes # (Manual) Eosinophils # (Manual) Nucleated RBC % Basophils # (Manual) PT INR APTT Heparin Anti-Xa Level ABG pH POC ABG pO2 ABG pO2 ABG HCO3 ABG O2 Saturation ABG Base Excess POC ABG pCO2 ABG Hemoglobin ABG Oxyhemoglobin ABG Glucose Oxyhemoglobin Sodium Potassium Chloride Carbon Dioxide BUN Creatinine Glucose POC Glucose 124 H 129 H Lactic Acid Calcium Phosphorus Magnesium AST ALT Lactate Dehydrogenase Total Bilirubin Direct Bilirubin CK-MB (CK-2) C-Reactive Protein NT-Pro-B Natriuret Pep Total Protein Albumin Arterial Blood Glucose Urine WBC (Auto) Urine Creatinine 02/03/20 02/03/20 02/03/20 07:04 11:32 12:49 WBC RBC Hgb Hct MCHC RDW MCV MCH Lymph % (Auto) [place] % (Auto) [place] # Eos # Lymph # (Auto) [place] # (Auto) Eos # (Auto) Seg Neutrophils % Seg Neuts % (Manual) Baso # (Auto) Lymphocytes % (Manual) Monocytes % (Manual) Eosinophils % (Manual) Basophils % (Manual) Seg Neutrophils # Seg Neutrophils # Man Lymphocytes # (Manual) Monocytes # (Manual) Eosinophils # (Manual) Nucleated RBC % Basophils # (Manual) PT INR APTT Heparin Anti-Xa Level ABG pH POC ABG pO2 ABG pO2 ABG HCO3 ABG O2 Saturation ABG Base Excess POC ABG pCO2 ABG Hemoglobin ABG Oxyhemoglobin ABG Glucose Oxyhemoglobin Sodium Potassium Chloride 97.9 L Carbon Dioxide 33 H BUN 39 H Creatinine Glucose 119 H POC Glucose 138 H Lactic Acid Calcium Phosphorus Magnesium 2.60 H AST ALT Lactate Dehydrogenase Total Bilirubin Direct Bilirubin CK-MB (CK-2) C-Reactive Protein NT-Pro-B Natriuret Pep Total Protein Albumin Arterial Blood Glucose Urine WBC (Auto) Urine Creatinine 02/03/20 02/04/20 02/04/20 18:28 16:24 16:24 WBC RBC 3.38 L Hgb 8.6 L Hct 26.9 L MCHC RDW 19.5 H MCV 80 L MCH 26 L Lymph % (Auto) [place] % (Auto) [place] # Eos # Lymph # (Auto) Gregg # (Auto) Eos # (Auto) Seg Neutrophils % Seg Neuts % (Manual) Baso # (Auto) Lymphocytes % (Manual) Monocytes % (Manual) Eosinophils % (Manual) Basophils % (Manual) Seg Neutrophils # Seg Neutrophils # Man Lymphocytes # (Manual) Monocytes # (Manual) Eosinophils # (Manual) Nucleated RBC % Basophils # (Manual) PT INR APTT Heparin Anti-Xa Level ABG pH POC ABG pO2 ABG pO2 ABG HCO3 ABG O2 Saturation ABG Base Excess POC ABG pCO2 ABG Hemoglobin ABG Oxyhemoglobin ABG Glucose Oxyhemoglobin Sodium Potassium 3.4 L Chloride Carbon Dioxide 31 H BUN 37 H Creatinine Glucose 70 L POC Glucose 118 H Lactic Acid Calcium Phosphorus Magnesium AST 169 H ALT 394 H Lactate Dehydrogenase Total Bilirubin 1.50 H Direct Bilirubin CK-MB (CK-2) C-Reactive Protein NT-Pro-B Natriuret Pep Total Protein Albumin 2.9 L Arterial Blood Glucose Urine WBC (Auto) Urine Creatinine 02/05/20 02/05/20 02/05/20 00:41 06:37 17:14 WBC RBC Hgb Hct MCHC RDW MCV MCH Lymph % (Auto) [place] % (Auto) Gregg # Eos # Lymph # (Auto) [place] # (Auto) Eos # (Auto) Seg Neutrophils % Seg Neuts % (Manual) Baso # (Auto) Lymphocytes % (Manual) Monocytes % (Manual) Eosinophils % (Manual) Basophils % (Manual) Seg Neutrophils # Seg Neutrophils # Man Lymphocytes # (Manual) Monocytes # (Manual) Eosinophils # (Manual) Nucleated RBC % Basophils # (Manual) PT INR APTT Heparin Anti-Xa Level ABG pH POC ABG pO2 ABG pO2 ABG HCO3 ABG O2 Saturation ABG Base Excess POC ABG pCO2 ABG Hemoglobin ABG Oxyhemoglobin ABG Glucose Oxyhemoglobin Sodium Potassium 3.1 L Chloride Carbon Dioxide 35 H BUN 32 H Creatinine 0.7 L Glucose POC Glucose 69 L 127 H Lactic Acid Calcium Phosphorus Magnesium AST 134 H ALT 352 H Lactate Dehydrogenase Total Bilirubin 1.60 H Direct Bilirubin CK-MB (CK-2) C-Reactive Protein NT-Pro-B Natriuret Pep Total Protein Albumin 2.9 L Arterial Blood Glucose Urine WBC (Auto) Urine Creatinine 02/05/20 02/06/20 02/06/20 23:43 05:32 08:01 WBC RBC Hgb Hct MCHC RDW MCV MCH Lymph % (Auto) [place] % (Auto) [place] # Eos # Lymph # (Auto) [place] # (Auto) Eos # (Auto) Seg Neutrophils % Seg Neuts % (Manual) Baso # (Auto) Lymphocytes % (Manual) Monocytes % (Manual) Eosinophils % (Manual) Basophils % (Manual) Seg Neutrophils # Seg Neutrophils # Man Lymphocytes # (Manual) Monocytes # (Manual) Eosinophils # (Manual) Nucleated RBC % Basophils # (Manual) PT INR APTT Heparin Anti-Xa Level ABG pH POC ABG pO2 ABG pO2 ABG HCO3 ABG O2 Saturation ABG Base Excess POC ABG pCO2 ABG Hemoglobin ABG Oxyhemoglobin ABG Glucose Oxyhemoglobin Sodium Potassium Chloride Carbon Dioxide BUN 40 H Creatinine Glucose 132 H POC Glucose 129 H 131 H Lactic Acid Calcium Phosphorus Magnesium AST ALT Lactate Dehydrogenase Total Bilirubin Direct Bilirubin CK-MB (CK-2) C-Reactive Protein NT-Pro-B Natriuret Pep Total Protein Albumin Arterial Blood Glucose Urine WBC (Auto) Urine Creatinine 02/06/20 02/06/20 02/06/20 11:51 16:28 17:32 WBC RBC Hgb Hct MCHC RDW MCV MCH Lymph % (Auto) [place] % (Auto) [place] # Eos # Lymph # (Auto) [place] # (Auto) Eos # (Auto) Seg Neutrophils % Seg Neuts % (Manual) Baso # (Auto) Lymphocytes % (Manual) Monocytes % (Manual) Eosinophils % (Manual) Basophils % (Manual) Seg Neutrophils # Seg Neutrophils # Man Lymphocytes # (Manual) Monocytes # (Manual) Eosinophils # (Manual) Nucleated RBC % Basophils # (Manual) PT INR APTT Heparin Anti-Xa Level ABG pH POC ABG pO2 ABG pO2 ABG HCO3 ABG O2 Saturation ABG Base Excess POC ABG pCO2 ABG Hemoglobin ABG Oxyhemoglobin ABG Glucose Oxyhemoglobin Sodium Potassium Chloride Carbon Dioxide BUN Creatinine Glucose POC Glucose 167 H 129 H Lactic Acid Calcium Phosphorus Magnesium AST 824 H ALT 948 H Lactate Dehydrogenase Total Bilirubin 1.70 H Direct Bilirubin 1.2 H CK-MB (CK-2) C-Reactive Protein NT-Pro-B Natriuret Pep Total Protein Albumin 2.9 L Arterial Blood Glucose Urine WBC (Auto) Urine Creatinine 02/07/20 02/07/20 02/07/20 00:11 04:57 04:57 WBC RBC Hgb 9.2 L Hct 29.7 L MCHC 31 L RDW 20.2 H MCV 80 L MCH 25 L Lymph % (Auto) [place] % (Auto) [place] # Eos # Lymph # (Auto) [place] # (Auto) Eos # (Auto) Seg Neutrophils % Seg Neuts % (Manual) Baso # (Auto) Lymphocytes % (Manual) Monocytes % (Manual) Eosinophils % (Manual) Basophils % (Manual) Seg Neutrophils # Seg Neutrophils # Man Lymphocytes # (Manual) Monocytes # (Manual) Eosinophils # (Manual) Nucleated RBC % Basophils # (Manual) PT INR APTT Heparin Anti-Xa Level ABG pH POC ABG pO2 ABG pO2 ABG HCO3 ABG O2 Saturation ABG Base Excess POC ABG pCO2 ABG Hemoglobin ABG Oxyhemoglobin ABG Glucose Oxyhemoglobin Sodium Potassium 3.4 L D Chloride Carbon Dioxide 32 H BUN 39 H Creatinine Glucose 106 H POC Glucose 121 H Lactic Acid Calcium Phosphorus Magnesium AST ALT Lactate Dehydrogenase Total Bilirubin Direct Bilirubin CK-MB (CK-2) C-Reactive Protein NT-Pro-B Natriuret Pep Total Protein Albumin Arterial Blood Glucose Urine WBC (Auto) Urine Creatinine 02/07/20 02/07/20 02/07/20 15:03 15:03 17:11 WBC RBC Hgb Hct MCHC RDW MCV MCH Lymph % (Auto) [place] % (Auto) [place] # Eos # Lymph # (Auto) [place] # (Auto) Eos # (Auto) Seg Neutrophils % Seg Neuts % (Manual) Baso # (Auto) Lymphocytes % (Manual) Monocytes % (Manual) Eosinophils % (Manual) Basophils % (Manual) Seg Neutrophils # Seg Neutrophils # Man Lymphocytes # (Manual) Monocytes # (Manual) Eosinophils # (Manual) Nucleated RBC % Basophils # (Manual) PT 27.0 H INR 2.46 H APTT Heparin Anti-Xa Level ABG pH POC ABG pO2 ABG pO2 ABG HCO3 ABG O2 Saturation ABG Base Excess POC ABG pCO2 ABG Hemoglobin ABG Oxyhemoglobin ABG Glucose Oxyhemoglobin Sodium Potassium Chloride Carbon Dioxide BUN Creatinine Glucose POC Glucose 109 H Lactic Acid Calcium Phosphorus Magnesium AST 424 H ALT 796 H Lactate Dehydrogenase Total Bilirubin 1.60 H Direct Bilirubin 1.2 H CK-MB (CK-2) C-Reactive Protein NT-Pro-B Natriuret Pep Total Protein Albumin 2.9 L Arterial Blood Glucose Urine WBC (Auto) Urine Creatinine 02/08/20 02/08/20 02/08/20 12:14 17:44 19:00 WBC RBC Hgb Hct MCHC RDW MCV MCH Lymph % (Auto) [place] % (Auto) [place] # Eos # Lymph # (Auto) [place] # (Auto) Eos # (Auto) Seg Neutrophils % Seg Neuts % (Manual) Baso # (Auto) Lymphocytes % (Manual) Monocytes % (Manual) Eosinophils % (Manual) Basophils % (Manual) Seg Neutrophils # Seg Neutrophils # Man Lymphocytes # (Manual) Monocytes # (Manual) Eosinophils # (Manual) Nucleated RBC % Basophils # (Manual) PT INR APTT Heparin Anti-Xa Level ABG pH POC ABG pO2 ABG pO2 ABG HCO3 ABG O2 Saturation ABG Base Excess POC ABG pCO2 ABG Hemoglobin ABG Oxyhemoglobin ABG Glucose Oxyhemoglobin Sodium Potassium Chloride Carbon Dioxide BUN Creatinine Glucose POC Glucose 111 H 107 H Lactic Acid Calcium Phosphorus Magnesium AST 309 H ALT 650 H Lactate Dehydrogenase Total Bilirubin 1.30 H Direct Bilirubin 0.9 H CK-MB (CK-2) C-Reactive Protein NT-Pro-B Natriuret Pep Total Protein 6.2 L Albumin 2.7 L Arterial Blood Glucose Urine WBC (Auto) Urine Creatinine 02/09/20 02/09/20 02/09/20 05:41 12:28 18:07 WBC RBC Hgb Hct MCHC RDW MCV MCH Lymph % (Auto) [place] % (Auto) [place] # Eos # Lymph # (Auto) [place] # (Auto) Eos # (Auto) Seg Neutrophils % Seg Neuts % (Manual) Baso # (Auto) Lymphocytes % (Manual) Monocytes % (Manual) Eosinophils % (Manual) Basophils % (Manual) Seg Neutrophils # Seg Neutrophils # Man Lymphocytes # (Manual) Monocytes # (Manual) Eosinophils # (Manual) Nucleated RBC % Basophils # (Manual) PT INR APTT Heparin Anti-Xa Level ABG pH POC ABG pO2 ABG pO2 ABG HCO3 ABG O2 Saturation ABG Base Excess POC ABG pCO2 ABG Hemoglobin ABG Oxyhemoglobin ABG Glucose Oxyhemoglobin Sodium Potassium Chloride Carbon Dioxide BUN Creatinine Glucose POC Glucose 113 H 140 H 143 H Lactic Acid Calcium Phosphorus Magnesium AST ALT Lactate Dehydrogenase Total Bilirubin Direct Bilirubin CK-MB (CK-2) C-Reactive Protein NT-Pro-B Natriuret Pep Total Protein Albumin Arterial Blood Glucose Urine WBC (Auto) Urine Creatinine 02/09/20 02/09/20 02/10/20 21:40 23:45 06:00 WBC RBC Hgb Hct MCHC RDW MCV MCH Lymph % (Auto) [place] % (Auto) [place] # Eos # Lymph # (Auto) [place] # (Auto) Eos # (Auto) Seg Neutrophils % Seg Neuts % (Manual) Baso # (Auto) Lymphocytes % (Manual) Monocytes % (Manual) Eosinophils % (Manual) Basophils % (Manual) Seg Neutrophils # Seg Neutrophils # Man Lymphocytes # (Manual) Monocytes # (Manual) Eosinophils # (Manual) Nucleated RBC % Basophils # (Manual) PT INR APTT Heparin Anti-Xa Level ABG pH POC ABG pO2 ABG pO2 59.8 L ABG HCO3 33.3 H ABG O2 Saturation 88.9 L ABG Base Excess 7.4 H POC ABG pCO2 ABG Hemoglobin 10.4 L ABG Oxyhemoglobin ABG Glucose Oxyhemoglobin 86.3 L Sodium Potassium Chloride Carbon Dioxide BUN Creatinine Glucose POC Glucose 127 H 114 H Lactic Acid Calcium Phosphorus Magnesium AST ALT Lactate Dehydrogenase Total Bilirubin Direct Bilirubin CK-MB (CK-2) C-Reactive Protein NT-Pro-B Natriuret Pep Total Protein Albumin Arterial Blood Glucose Urine WBC (Auto) Urine Creatinine 02/10/20 02/10/20 02/10/20 07:40 07:40 13:38 WBC 11.5 H RBC Hgb 10.6 L Hct 34.7 L MCHC 31 L RDW 19.8 H MCV 79 L MCH 24 L Lymph % (Auto) [place] % (Auto) 9.2 H [place] # Eos # Lymph # (Auto) [place] # (Auto) 1.1 H Eos # (Auto) Seg Neutrophils % Seg Neuts % (Manual) Baso # (Auto) Lymphocytes % (Manual) Monocytes % (Manual) Eosinophils % (Manual) Basophils % (Manual) Seg Neutrophils # Seg Neutrophils # Man Lymphocytes # (Manual) Monocytes # (Manual) Eosinophils # (Manual) Nucleated RBC % Basophils # (Manual) PT INR APTT Heparin Anti-Xa Level ABG pH POC ABG pO2 ABG pO2 ABG HCO3 ABG O2 Saturation ABG Base Excess POC ABG pCO2 ABG Hemoglobin ABG Oxyhemoglobin ABG Glucose Oxyhemoglobin Sodium 151 H Potassium Chloride 107.2 H Carbon Dioxide 36 H BUN 25 H Creatinine 0.7 L Glucose 114 H POC Glucose 116 H Lactic Acid Calcium Phosphorus Magnesium 2.40 H AST ALT Lactate Dehydrogenase Total Bilirubin Direct Bilirubin CK-MB (CK-2) C-Reactive Protein NT-Pro-B Natriuret Pep Total Protein Albumin Arterial Blood Glucose Urine WBC (Auto) Urine Creatinine Chest x-ray: pending Allied health notes reviewed: nursing
[2020-02-10] MEDS: DIGOXIN 0.5 MG/2 ML INJ IV SCH (17:30)
[2020-02-10] MEDS: HALOPERIDOL LACTATE 5 MG/1 ML INJ IV PRN (20:04)
[2020-02-11] MEDS: METOCLOPRAMIDE 10 MG/2 ML INJ IV SCH ×4 (01:23→17:35)
[2020-02-11] MEDS: APIXABAN 5 MG TAB PO SCH ×3 (01:27→22:11)
[2020-02-11] MEDS: TAMSULOSIN 0.4 MG CAP PO SCH ×2 (01:27→22:11)
[2020-02-11] MEDS: QUEtiapine 100 MG TAB PO SCH ×3 (01:27→22:14)
[2020-02-11] MEDS: METOPROLOL TARTRATE 50 MG TAB PO SCH ×4 (01:28→17:32)
[2020-02-11] MEDS: POLYETHYLENE GLYCOL 3350 17 GM POWDER PO SCH ×2 (01:29→22:14)
[2020-02-11] MEDS: INSULIN REGULAR, HUMAN 100 UNIT/ML 3ML VIAL SUB-Q SCH ×4 (01:30→18:19)
[2020-02-11] MEDS: HALOPERIDOL LACTATE 5 MG/1 ML INJ IV PRN (01:49)
--- NOTE | 2020-02-11 08:26 | Progress Note ---
Assessment and Plan Assessment and plan: Patient is a 64-year-old male with known history of hypertension, COPD, history of coronary artery disease, CHF with ejection fraction of 20 to 25% in August 2018 presenting to the emergency room via EMS complaining of shortness of breath. Patient was found to be hypoxic and in respiratory distress. Patient was placed on CPAP in route to the hospital. Patient remained hypoxic on CPAP BiPAP ,subsequently was intubated. Work-up in the emergency room including chest x-ray reveals bilateral pneumonia. He had an elevated white count of 14 and also had an elevated BNP. sputum cultures positive for Pseudomonas, ID treated with cefepime and Vanco. His hospital course became complicated with acute PE, DVT, paroxysmal atrial fib - placed on chronic anticoagulation. Patient was difficult to wean off, status post trach and PEG, remains on mechanical ventilation with trach tube. He then developed partial small bowel obstruction valuated by general surgeon symptom improved with medical Mx, patient was briefly weaned off ventilatory support however, was in respiratory failure requiring full ventilatory support. Cardiac catheterization on 01/22/2020. No new issues overnight. --Acute on chronic hypoxemic respiratory failure; Patient has tracheostomy on vent Continue nebulizers, , trach care Wean off ventilator as tolerated Pulmonary critical following --Acute exacerbation of COPD; Patient is currently on ventilatory support Continue nebulizers --Left lower lobe PE; Continue Eliquis, ventilatory support --Acute right lower extremity DVT; Patient is on Eliquis --Bilateral multifocal pneumonia/community-acquired Completed antibiotics, improved --Severe sepsis/bilateral pneumonia: Completed antibiotics COVID-19 test; 11/24/2019; negative 11/26/2019; negative 12/29/2019: Negative -Ischemic cardiomyopathy Cardiology is following, status post cardiac catheterization on 01/22/2020; Coronary artery disease status post PCI and stent to the LAD Continue current cardiac medications --atrial fibrillation WITH RVR Now rate controlled, Stable on amiodarone and Eliquis --Acute on chronic combined systolic and diastolic congestive heart failure Ischemic cardiomyopathy left ventricular ejection fraction 40 to 45% --H/o CAD [[facility] 12/2018 in-stent restenosis] --Hypertensive emergency; present on admission Reasonable blood pressures, continue current antihypertensives As needed medications --Hypokalemia; replenish per protocol and monitor levels --History of alcohol abuse/alcohol withdrawal; Was on CIWA protocol, now stable --Oropharyngeal dysphagia; status post PEG placement Continue PEG feeds per protocol --History of partial small bowel obstruction; resolved Surgery evaluated. At present not a surgical candidate. --Obesity; BMI 34.7 Patient needs weight reduction when medically stable --Severe protein calorie malnutrition/hypoalbuminemia Nutrition supplements, dietitian following, PEG feeds --DVT prophylaxis;Eliquis --Full CODE STATUS We will closely monitor the patient and adjust management as needed Plan of care reviewed with the patient's nurse Inside Sales Director recommendations noted and appreciated February 02, 2020 Patient with episode of projectile vomiting. Most likely source partial bowel obstruction versus tube feeds. Will obtain chest x-ray to rule out aspiration. We will also hold tube feeds for 12 hours and obtain KUB. Area tracheostomy needs to be cleaned out as well. Patient obviously has failed T-piece trial again this time. Resume weaning parameters in a.m. Unlikely the secretions that have been fairly well controlled. Atrial fibrillation rate have remained well controlled. Continue amiodarone and beta-hebert. Metoprolol. Congestive heart failure ejection fraction 40 to 45% patient had inferior wall hypokinesis on catheterization otherwise stable. Continue present diuresis Acute respiratory failure unable to wean tracheostomy at this time. Failed T- piece trial again. Despite improve secretions. Continue bronchodilators and weaning parameters. Projectile vomiting. Rule out small bowel obstruction rule out ileus. Will hold tube feeds obtain imaging to rule out aspiration and bowel obstruction as well. Continue antibiotics. 02/02: Discussed with Nursing staff, patient with some mild change in mental status, not following commands like prior,WILL OBTAIN HEAD CT remains intubated on full mechanical ventilatory support. Today is my first day seeing the patient, have reviewed all records so far. Patients still with elevated heart rate of Afib with RVR continue amiodarone and metoprolol. LVEF 40 to 45%. Con tinue Eliquis FOR THE Acute PE/DVT. Partial SBO vs ileus- KUB is negative. Will monitor, No further vomiting noted. If no improvement will repeat a chest xray to ensure no aspiration in the last 24 hrs. Will initiate sepsis work up, Obtain cultures, cxr- no change, only showing stable bilateral pulmonary opacities, lactate checked and wnl. Mild elevation in WBC. will recheck in am. IF Continued fever, will reconsult ID. 02/03: Mental status more improved, agree with Reglan will change to IV sc heduled for two days, no new vomiting. Pseudomonas A in Sputum. 02/04: Clinical improving, amiodarone discontinued due to LFTs, continue Metoprolol. Discussed with GI, started on Golytely to clear impaction. Started on dialy Miralax. 02/05: Continue supportive care. Noted bowel movement, continue bowel regimen 02/06: Cardiology input noted beta-hebert increased for better suppression of atrial fibrillation. Continue to monitor, no other evidence of nausea vomiting noted. Discussed with respiratory therapist will be continued on weaning protocol with pressure support today. 02/07: Patient successfully weaned off the ventilator, No new complaints, continue monitoring, BM noted, Discussed with pulmonary, 02/08; tracheostomy on T-piece, patient is more alert and awake today 02/09; clinically no change, tracheostomy on vent 02/11/20; tracheostomy on vent, full CODE STATUS, poor prognosis, patient full CODE STATUS History Interval history: I have seen and examined the patient at the bedside Patient's chart and medications reviewed Patient tracheostomy on ventilatory support Vital signs noted Hospitalist Physical - Constitutional Vitals: Temp Pulse Resp BP Pulse Ox 98.4 F 107 H 27 H 93/67 97 02/11/20 04:00 02/11/20 08:03 02/11/20 08:03 02/11/20 08:03 02/11/20 08:03 General appearance: Present: no acute distress, well-nourished, obese, other (Tracheostomy, on vent) - EENT Eyes: Present: PERRL, EOM intact - Neck Neck: Present: supple, normal ROM - Respiratory Respiratory effort: normal Respiratory: bilateral: diminished, negative: rales, rhonchi, wheezing - Cardiovascular Rhythm: regular Heart Sounds: Present: S1 & S2 - Extremities Extremities: no ischemia, No edema - Abdominal General gastrointestinal: soft, non-tender, non-distended, normal bowel sounds - Integumentary Integumentary: Present: clear, warm - Psychiatric Psychiatric: other (Intubated on vent) - Neurologic Neurologic: other (On ventilatory support) HEART Score - HEART Score Troponin: Troponin T < 0.010 ng/mL (0.00-0.029) 01/19/20 01:35 Results - Labs CBC & Chem 7: 02/10/20 07:40 02/10/20 07:40 Labs: Laboratory Last Values WBC 11.5 K/mm3 (4.5-11.0) H 02/10/20 07:40 RBC 4.39 M/mm3 (3.65-5.03) 02/10/20 07:40 Hgb 10.6 gm/dl (11.8-15.2) L 02/10/20 07:40 Hct 34.7 % (35.5-45.6) L 02/10/20 07:40 MCV 79 fl (84-94) L 02/10/20 07:40 MCH 24 pg (28-32) L 02/10/20 07:40 MCHC 31 % (32-34) L 02/10/20 07:40 RDW 19.8 % (13.2-15.2) H 02/10/20 07:40 Plt Count 270 K/mm3 (140-440) 02/10/20 07:40 Lymph % (Auto) 23.1 % (13.4-35.0) 02/10/20 07:40 Eagle % (Auto) 9.2 % (0.0-7.3) H 02/10/20 07:40 Eos % (Auto) 2.7 % (0.0-4.3) 02/10/20 07:40 Baso % (Auto) 0.5 % (0.0-1.8) 02/10/20 07:40 Lymph # (Auto) 2.7 K/mm3 (1.2-5.4) 02/10/20 07:40 Eagle # (Auto) 1.1 K/mm3 (0.0-0.8) H 02/10/20 07:40 Eos # (Auto) 0.3 K/mm3 (0.0-0.4) 02/10/20 07:40 Baso # (Auto) 0.1 K/mm3 (0.0-0.1) 02/10/20 07:40 Add Manual Diff Complete 12/19/19 11:32 Total Counted 100 12/19/19 11:32 Seg Neutrophils % 64.5 % (40.0-70.0) 02/10/20 07:40 Seg Neuts % (Manual) 82.0 % (40.0-70.0) H 12/19/19 11:32 Band Neutrophils % 0 % 12/19/19 11:32 Lymphocytes % (Manual) 10.0 % (13.4-35.0) L 12/19/19 11:32 Reactive Lymphs % (Man) 0 % 12/19/19 11:32 Monocytes % (Manual) 6.0 % (0.0-7.3) 12/19/19 11:32 Eosinophils % (Manual) 2.0 % (0.0-4.3) 12/19/19 11:32 Basophils % (Manual) 0 % (0.0-1.8) 12/19/19 11:32 Metamyelocytes % 0 % 12/19/19 11:32 Myelocytes % 0 % 12/19/19 11:32 Promyelocytes % 0 % 12/19/19 11:32 Blast Cells % 0 % 12/19/19 11:32 Nucleated RBC % 1.0 % (0.0-0.9) H 12/19/19 11:32 Seg Neutrophils # 7.4 K/mm3 (1.8-7.7) 02/10/20 07:40 Seg Neutrophils # Man 12.0 K/mm3 (1.8-7.7) H 12/19/19 11:32 Band Neutrophils # 0.0 K/mm3 12/19/19 11:32 Lymphocytes # (Manual) 1.5 K/mm3 (1.2-5.4) 12/19/19 11:32 Abs React Lymphs (Man) 0.0 K/mm3 12/19/19 11:32 Monocytes # (Manual) 0.9 K/mm3 (0.0-0.8) H 12/19/19 11:32 Eosinophils # (Manual) 0.3 K/mm3 (0.0-0.4) 12/19/19 11:32 Basophils # (Manual) 0.0 K/mm3 (0.0-0.1) 12/19/19 11:32 Metamyelocytes # 0.0 K/mm3 12/19/19 11:32 Myelocytes # 0.0 K/mm3 12/19/19 11:32 Promyelocytes # 0.0 K/mm3 12/19/19 11:32 Blast Cells # 0.0 K/mm3 12/19/19 11:32 WBC Morphology Not Reportable 12/19/19 11:32 Hypersegmented Neuts Not Reportable 12/19/19 11:32 Hyposegmented Neuts Not Reportable 12/19/19 11:32 Hypogranular Neuts Not Reportable 12/19/19 11:32 Smudge Cells Not Reportable 12/19/19 11:32 Toxic Granulation Not Reportable 12/19/19 11:32 Toxic Vacuolation Not Reportable 12/19/19 11:32 Dohle Bodies Not Reportable 12/19/19 11:32 Pelger-Huet Anomaly Not Reportable 12/19/19 11:32 Hector Rods Not Reportable 12/19/19 11:32 Platelet Estimate Consistent w auto 12/19/19 11:32 Clumped Platelets Not Reportable 12/19/19 11:32 Plt Clumps, EDTA Not Reportable 12/19/19 11:32 Large Platelets Not Reportable 12/19/19 11:32 Giant Platelets Not Reportable 12/19/19 11:32 Platelet Satelliting Not Reportable 12/19/19 11:32 Plt Morphology Comment Not Reportable 12/19/19 11:32 RBC Morphology Not Reportable 12/19/19 11:32 Dimorphic RBCs Not Reportable 12/19/19 11:32 Polychromasia Not Reportable 12/19/19 11:32 Hypochromasia Few 12/19/19 11:32 Poikilocytosis Not Reportable 12/19/19 11:32 Anisocytosis 1+ 12/19/19 11:32 Microcytosis Few 12/19/19 11:32 Macrocytosis Few 12/19/19 11:32 Spherocytes Not Reportable 12/19/19 11:32 Pappenheimer Bodies Not Reportable 12/19/19 11:32 Sickle Cells Not Reportable 12/19/19 11:32 Target Cells Not Reportable 12/19/19 11:32 Tear Drop Cells Not Reportable 12/19/19 11:32 Ovalocytes Not Reportable 12/19/19 11:32 Helmet Cells Not Reportable 12/19/19 11:32 Gottlieb-Moca Bodies Not Reportable 12/19/19 11:32 [place] Rings Not Reportable 12/19/19 11:32 Burton Cells Not Reportable 12/19/19 11:32 Bite Cells Not Reportable 12/19/19 11:32 Crenated Cell Not Reportable 12/19/19 11:32 Elliptocytes Not Reportable 12/19/19 11:32 Acanthocytes (Spur) Not Reportable 12/19/19 11:32 Rouleaux Not Reportable 12/19/19 11:32 Hemoglobin C Crystals Not Reportable 12/19/19 11:32 Schistocytes Not Reportable 12/19/19 11:32 Malaria parasites Not Reportable 12/19/19 11:32 Clifford Bodies Not Reportable 12/19/19 11:32 Hem Pathologist Commnt No 12/19/19 11:32 PT 27.0 Sec. (12.2-14.9) H 02/07/20 15:03 INR 2.46 (0.87-1.13) H 02/07/20 15:03 APTT 31.5 Sec. (24.2-36.6) 01/22/20 09:58 Heparin Anti-Xa Level 1.34 U.I./ml (0.3-0.7) H 01/22/20 04:45 ABG pH 7.407 pH Units (7.350-7.450) 02/09/20 21:40 POC ABG pCO2 45.6 mmHg (32.0-48.0) 01/12/20 13:58 ABG pCO2 54.1 mm Hg 02/09/20 21:40 POC ABG pO2 76.6 mmHg (83-108) L 01/12/20 13:58 ABG pO2 59.8 mm Hg (80.0-90.0) L 02/09/20 21:40 POC ABG HCO3 31.2 01/12/20 13:58 ABG HCO3 33.3 mmol/L (20.0-26.0) H 02/09/20 21:40 ABG O2 Saturation 88.9 % (95.0-99.0) L 02/09/20 21:40 ABG O2 Content 12.7 (0.0-44) 02/09/20 21:40 POC ABG Base Excess 6.5 01/12/20 13:58 ABG Base Excess 7.4 mmol/L (-2.0-3.0) H 02/09/20 21:40 ABG Hemoglobin 10.4 gm/dl (14.0-18.0) L 02/09/20 21:40 ABG Oxyhemoglobin 84 (94-98) L 12/22/19 03:22 ABG Carboxyhemoglobin 2.3 % (0.0-5.0) 02/09/20 21:40 ABG Methemoglobin 0.6 % (0.0-1.5) 02/09/20 21:40 ABG Sodium 136.8 mmol/L (136.0-145.0) 01/12/20 13:58 ABG Potassium 3.7 mmol/L (3.40-4.50) 01/12/20 13:58 ABG Chloride 103.0 mmol/L (98-107) 01/12/20 13:58 ABG Glucose 99 mg/dL (65-95) H 01/12/20 13:58 Oxyhemoglobin 86.3 % (95.0-99.0) L 02/09/20 21:40 Carboxyhemoglobin 0.7 (0.5-1.5) 12/22/19 03:22 FiO2 40 % 02/09/20 21:40 Sodium 151 mmol/L (137-145) H 02/10/20 07:40 Potassium 3.6 mmol/L (3.6-5.0) 02/10/20 07:40 Chloride 107.2 mmol/L (98-107) H 02/10/20 07:40 Carbon Dioxide 36 mmol/L (22-30) H 02/10/20 07:40 Anion Gap 11 mmol/L 02/10/20 07:40 BUN 25 mg/dL (9-20) H 02/10/20 07:40 Creatinine 0.7 mg/dL (0.8-1.3) L 02/10/20 07:40 Estimated GFR > 60 ml/min 02/10/20 07:40 BUN/Creatinine Ratio 36 % 02/10/20 07:40 Glucose 114 mg/dL (75-100) H 02/10/20 07:40 POC Glucose 173 mg/dL (70-105) H 02/11/20 05:47 Lactic Acid 1.60 mmol/L (0.7-2.0) 02/03/20 12:49 Calcium 9.3 mg/dL (8.4-10.2) 02/10/20 07:40 Ferritin 84.4 ng/mL (30.0-300.0) 11/24/19 04:53 Phosphorus 4.10 mg/dL (2.5-4.5) 01/31/20 19:24 Magnesium 2.40 mg/dL (1.7-2.3) H 02/10/20 07:40 Total Bilirubin 1.30 mg/dL (0.1-1.2) H 02/08/20 19:00 Direct Bilirubin 0.9 mg/dL (0-0.2) H 02/08/20 19:00 Indirect Bilirubin 0.4 mg/dL 02/08/20 19:00 Total Creatine Kinase 141 units/L (55-170) 11/24/19 02:53 CK-MB (CK-2) 4.3 ng/mL (0.0-4.0) H 11/24/19 02:53 AST 309 units/L (5-40) H 02/08/20 19:00 ALT 650 units/L (7-56) H 02/08/20 19:00 CK-MB (CK-2) Rel Index 3.0 (0-4) 11/24/19 02:53 Alkaline Phosphatase 109 units/L (35-129) 02/08/20 19:00 C-Reactive Protein 8.50 mg/dL (0.00-1.30) H 12/01/19 12:16 Ammonia 35.0 umol/L (25-60) 02/03/20 12:49 Lactate Dehydrogenase 228 units/L (91-180) H 12/19/19 04:45 Troponin T < 0.010 ng/mL (0.00-0.029) 01/19/20 01:35 NT-Pro-B Natriuret Pep 3866 pg/mL (0-900) H 01/01/20 10:40 Total Protein 6.2 g/dL (6.3-8.2) L 02/08/20 19:00 Albumin 2.7 g/dL (3.9-5) L 02/08/20 19:00 Albumin/Globulin Ratio 0.8 % 02/08/20 19:00 Procalcitonin 0.44 ng/mL (<0.15) 02/03/20 12:49 Arterial Blood Glucose 99 mg/dL (65-95) H 01/12/20 13:58 Arterial Blood Ionized Calcium 4.8 mg/dL (4.6-5.3) 01/12/20 13:58 Urine Color Cecy (Yellow) 12/31/19 18:04 Urine Turbidity Clear (Clear) 12/31/19 18:04 Urine pH 5.0 (5.0-7.0) 12/31/19 18:04 Ur Specific [place] 1.023 (1.003-1.030) 12/31/19 18:04 Urine Protein <15 mg/dl mg/dL (Negative) 12/31/19 18:04 Urine Glucose (UA) Neg mg/dL (Negative) 12/31/19 18:04 Urine Ketones Neg mg/dL (Negative) 12/31/19 18:04 Urine Blood Neg (Negative) 12/31/19 18:04 Urine Bacteria (Auto) 1+ /HPF (Negative) 12/03/19 06:03 Urine Nitrite Neg (Negative) 12/31/19 18:04 Urine Bilirubin Neg (Negative) 12/31/19 18:04 Urine Urobilinogen 4.0 mg/dL (<2.0) 12/31/19 18:04 Ur Leukocyte Esterase Neg (Negative) 12/31/19 18:04 Urine WBC (Auto) 2.0 /HPF (0.0-6.0) 12/31/19 18:04 Urine RBC (Auto) 3.0 /HPF (0.0-6.0) 12/31/19 18:04 U Epithel Cells (Auto) 2.0 /HPF (0-13.0) 12/31/19 18:04 Urine Mucus 1+ /HPF 12/31/19 18:04 Urine Creatinine 57.4 mg/dL (0.1-20.0) H 01/31/20 Unknown Urine Sodium 59 mmol/L 01/31/20 Unknown Vancomycin Trough 14.2 ug/mL (5.0-20.0) 12/13/19 15:01 Coronavirus (PCR) Negative (Negative) 12/29/19 10:07 Hepatitis A IgM Ab Non-reactive (NonReactive) 02/05/20 06:37 Hep Bs Antigen Non-reactive (Negative) 02/05/20 06:37 Hep B Core IgM Ab Non-reactive (NonReactive) 02/05/20 06:37 Hepatitis C Antibody Non-reactive (NonReactive) 11/13/20 06:37 Blood Type O POSITIVE 01/21/20 13:00 Antibody Screen Negative 01/21/20 13:00 - Diagnostic Impressions Diagnostic Impressions: Echocardiogram 11/29/19 07:37 Transthoracic Echocardiogram Indication: CHF BP: 116/72 HR: 33 Conclusions *The study is technically limited due to poor acoustic windows. *Global left ventricular systolic function is normal. *The estimated ejection fraction is 50-55%. *Mild concentric left ventricular hypertrophy is observed. *There is trace of mitral regurgitation. *There is mild tricuspid regurgitation. Findings Procedure Info: The study quality is poor. The study is technically limited due to poor acoustic windows. The study is technically limited due to patient body habitus. Left Ventricle: The left ventricular chamber size is normal. Mild concentric left ventricular hypertrophy is observed. Global left ventricular systolic function is normal. The estimated ejection fraction is 50-55%. Left Atrium: The left atrial chamber size is normal. Right Ventricle: The right ventricular cavity size is normal. Right Atrium: The right atrial cavity size is normal. Aortic Valve: The aortic valve leaflets are moderately thickened. There is trace of aortic regurgitation. There is no evidence of aortic stenosis. Mitral Valve: The mitral valve leaflets are mildly thickened. There is trace of mitral regurgitation. There is no evidence of mitral stenosis. Tricuspid Valve: There is mild tricuspid regurgitation. No pulmonary hypertension is noted. Pulmonic Valve: There is trace pulmonic regurgitation. Pericardium: There is no pericardial effusion. Aorta: There is no dilatation of the aortic root. Venous: The inferior vena cava appears normal in size. Contrast: Definity was used to optimize study. Intravenous contrast was used to enhance endocardial border definition. Measurements Chambers 2D Name Value Normal Range Ao root diameter (2D) 3.4 cm (2 - 3.7) Aortic Valve Name Value Normal Range AV Vmax 0.98 m/sec - AV VTI 16.76 cm - AV peak gradient 3.83 mmHg - AV mean gradient 2.57 mmHg - LVOT diameter 3.11 cm - LVOT Vmax 0.68 m/sec - LVOT VTI 11.52 cm - LVOT peak gradient 1.84 mmHg - LVOT mean gradient 1.27 mmHg - SV LVOT 87.31 ml - MALOU (continuity Vmax) 5.24 cm2 - MALOU (continuity VTI) 5.21 cm2 - Tricuspid Valve Name Value Normal Range IVC diameter 2.24 cm (1.2 - 2.3) Hoffman/IV: Voiding Method Indwelling Catheter IV Catheter Type [Right INT / Saline Lock Forearm] IV Catheter Type [Right Hand] Peripheral IV IV Catheter Type [Right Upper INT / Saline Lock arm] IV Catheter Type [Left Upper Mid-line arm] IV Catheter Type [Left Forearm INT / Saline Lock ] IV Catheter Type [Left Hand] Peripheral IV IV Catheter Type [Left Wrist] INT / Saline Lock IV Catheter Type [Right Peripheral IV Antecubital] Active Medications - Current Medications Current Medications: Generic Name Dose Route Start Last Admin Trade Name Freq PRN Reason Stop Dose Admin Acetaminophen 650 mg 12/31/19 11:43 02/03/20 12:54 Tylenol FEEDTUBE 650 mg Q6H PRN Administration Pain, Mild (1-3) Lipase/Protease/Amylase 1 each 01/09/20 12:01 Pancrepetr Betancourt 10,500 Unit FEEDTUBE PRN PRN For Clogged Feeding Tube Apixaban 5 mg 01/22/20 22:00 02/11/20 01:27 Eliquis PO 5 mg Q12HR CAR Administration Protocol Atorvastatin Calcium 40 mg 01/20/20 22:00 02/11/20 01:28 Lipitor PO 40 mg QHS CAR Administration Clopidogrel Bisulfate 75 mg 01/21/20 06:00 02/10/20 09:53 Plavix PO 75 mg QDAY CAR Administration Dextrose 50 ml 01/31/20 18:51 02/05/20 00:56 D50w (25gm) Syringe IV 50 ml Q30MIN PRN Administration Hypoglycemia Protocol Digoxin 0.125 mg 02/10/20 17:00 02/10/20 17:30 Lanoxin IV 0.125 mg DAILY@1700 CAR Administration Fentanyl 50 mcg 02/01/20 15:52 Sublimaze IV Q10MIN PRN ANALGESIA Glycopyrrolate 2 mg 01/26/20 20:00 02/10/20 20:04 Glycopyrrolate PO 2 mg TID CAR Administration Haloperidol Lactate 5 mg 02/10/20 14:20 02/11/20 01:49 Haldol IV 5 mg Q6H PRN Administration Agitation Hydrophilic Ointment 1 applic 01/17/20 15:26 Vaseline Lip Therapy TP DIRECT PRN Dry Lips Fentanyl Citrate 2,000 mcg in 100 mls @ 5.65 mls/hr 02/01/20 16:00 02/03/20 11:31 Fentanyl Drip Premix IV 0 mcg/kg/hr TITR CAR 0 mls/hr Titration Protocol 1 MCG/KG/HR Insulin Human Regular 0 unit 02/01/20 18:00 02/11/20 01:30 Humulin R SUB-Q Not Given Q6H [facility] Protocol Lansoprazole 30 mg 02/05/20 16:00 02/10/20 09:53 Prevacid Solutab FEEDTUBE 30 mg QDAY CAR Administration Metoclopramide HCl 10 mg 02/08/20 12:00 02/11/20 01:23 Reglan IV 10 mg Q6HR [facility] Administration Metoprolol Tartrate 5 mg 01/11/20 08:00 02/03/20 07:16 Metoprolol IV 5 mg Q6H PRN Administration SEE INSTRUCTIONS Metoprolol Tartrate 50 mg 02/05/20 12:00 02/11/20 01:28 Metoprolol PO 50 mg Q6HR [facility] Administration Midodrine 15 mg 02/04/20 16:00 02/10/20 17:29 Proamatine PO Not Given TID@0800,1200,1600 [facility] Morphine Sulfate 2 mg 01/06/20 15:41 02/09/20 00:32 Morphine IV 2 mg Q4H PRN Administration Pain, Moderate (4-6) Multi-Ingred Cream/Lotion/Oil/Oint 1 applic 02/01/20 15:52 Artificial Tears Ophth Oint OU Q4HR PRN Dry Eye(s) Nitroglycerin 0.4 mg 01/19/20 21:09 01/20/20 03:03 Nitrostat SL 0.4 mg .Q5MIN PRN Administration Chest Pain Ondansetron HCl 4 mg 01/05/20 14:37 02/07/20 00:10 Zofran IV 4 mg Q8H PRN Administration Nausea And Vomiting Polyethylene Glycol 17 gm 12/04/19 22:00 02/11/20 01:29 Miralax 3350 PO Not Given QHS [facility] Quetiapine Fumarate 300 mg 01/13/20 22:00 02/11/20 01:27 Seroquel PO 300 mg BID [facility] Administration Scopolamine 1 each 01/07/20 20:00 01/07/20 21:08 Transderm-Scop TD 1 each Q72HR CAR Administration Simple Syrup 15 ml 01/09/20 12:01 Simple Syrup FEEDTUBE PRN PRN Hypoglycemia Simple Syrup 30 ml 01/09/20 12:01 Simple Syrup FEEDTUBE PRN PRN Hypoglycemia Sodium Bicarbonate 325 mg 01/09/20 12:01 Sodium Bicarbonate FEEDTUBE PRN PRN For Clogged Feeding Tube Sodium Chloride 10 ml 11/24/19 10:00 02/11/20 01:29 Sodium Chloride Flush Syringe 10 Ml IV 10 ml BID CAR Administration Tamsulosin HCl 0.8 mg 12/20/19 22:00 02/11/20 01:27 Flomax PO 0.8 mg QHS CAR Administration Nutrition/Malnutrition Assess - Dietary Evaluation Nutrition/Malnutrition Findings: Nutrition Notes Start: 11/24/19 12:22 Freq: Status: Active Protocol: Document 02/09/20 12:48 EN (Rec: 02/09/20 13:16 EN [id number]) Co-Sign 02/09/20 12:48 MK Nutrition Notes Initial or Follow up Reassessment Current Diagnosis Coronary Artery Disease,Heart Failure,Respiratory Failure, Stroke,Hyperlipidemia Other Pertinent Diagnosis Partial SBO, pneu, ventilated trach Current Diet No diet order Labs/Tests POC Glu 113 Pertinent Medications Reviewed Height 6 ft 2 in Weight 114 kg [place] Body Weight (kg) 86.36 BMI 32.2 Weight Status Overweight Subjective/Other Information F/u for POC. Pt restarted on TF. TF is infusing at 40 ml/hr and pt is tolerating well. Pt has not yet been evaluated for swallow function. Pt was extubated on 02/07. Percent of energy/protein needs met: 53%/44% Burn Absent Trauma Absent GI Symptoms None Current % PO Negligible Minimum of two criteria Yes Muscle Mass Mild Depletion (non-severe) Fluid Accumulation Mild (non-severe) Reduced [employer] Strength Measurably Reduced (severe) #2 Nutrition Diagnosis Malnutrition Diagnosis Progress(for reassessment Continues documentation) #1 Nutrition Diagnosis Inadequate oral intake Diagnosis Progress(for reassessment Continues documentation) Is patient on ventilator? No Is Patient Ambulatory and/or Out of Bed No REE-([facility]-confined to bed) 2410.380 Kcal/Kg value to use for calculation 19 Approximate Energy Requirements Using 2166 kcal/Kg Calculation Used for Recommendations Kcal/kg Additional Notes Protein needs are 119-148g (1. 2-1.5 g/kg AdBW of 99.18kg) Fluid needs are 1.5L Nutrition Intervention Change Diet Order: Continue TF via PEG Nutrition Support: Vital AF 1.2 at 75ml/hr. Flush 100ml q4h Kcal 2,160 Protein (gm) 135 Fluid (mL) 1,460 Goal #1 Meet at least 75% of pt's energy and protein needs Goal #2 Weight maintenance Anticipated Discharge Needs: unable to determine Follow-Up By: 02/11/20 Additional Comments F/u for TF tolerance and POC
[2020-02-11] MEDS: GLYCOPYRROLATE 2 MG TAB PO SCH ×3 (08:47→22:20)
[2020-02-11] MEDS: MIDODRINE 5 MG TAB PO SCH ×3 (08:47→16:30)
[2020-02-11] MEDS: MORPHINE 2 MG/1 ML INJ IV PRN (08:55)
[2020-02-11] MEDS: LANSOPRAZOLE 30 MG SOLUTAB FEEDTUBE SCH (10:50)
[2020-02-11] MEDS: CLOPIDOGREL 75 MG TAB PO SCH (10:50)
--- NOTE | 2020-02-11 11:49 | Progress Note ---
Assessment and Plan Chest pain, resolved LHC done 01/22/20 widely patent previous LAD stent. We found mild nonobstructive atherosclerosis of the mid right coronary artery. Otherwise the rest of the coronary system was without significant atherosclerosis. LVEF 40 to 45%. There was some hypokinesis of the basal inferior wall suggestive of previous or recent infarct. ECG done 01/19/20 shows sinus rhythm with low voltage QRS and subtle ST segment elevations in the inferolateral leads that suggested possible concern for an acute injury at that time. Atrial fibrillation, paroxysmal on metoprolol and digoxin amiodarone discontinued due to liver transaminases Ischemic Cardiomyopathy re-echo this presentation reports an LVEF 40-45%. Hx of CAD Multifocal pneumonia negative COVID-19 test x 3 Chronic Respiratory failure s/p trach History of COPD Acute PE/DVT -on Eliquis Anemia Partial SBO vs ileus Recommend: Continue metoprolol and digoxin for management for atrial fibrillation. Continue guideline directed medical therapy for coronary artery disease. Otherwise, conservative cardiac management. Subjective Date of service: 02/11/20 Principal diagnosis: Ac hypoxemic resp failure; Pneumonia; PUI COVID-19; CHF; COPD; HTN Interval history: No interval cardiac changes. Atrial fibrillation with a well controlled ventricular rate on telemetry. Objective Vital Signs Temp Pulse Pulse Resp BP Pulse Ox Pulse Ox 02/11/20 11:27 123 H 127/80 97 02/11/20 11:00 120 H 27 H 93/66 94 02/11/20 10:00 126 H 29 H 91/67 96 02/11/20 09:00 114 H 28 H 91/67 97 02/11/20 08:46 110 H 93/67 02/11/20 08:03 107 H 27 H 93/67 97 02/11/20 08:00 98.0 F 121 H 103 H 34 H 93/67 90 02/11/20 07:00 110 H 27 H 113/69 94 02/11/20 06:00 116 H 36 H 88/63 95 02/11/20 05:00 114 H 23 88/63 96 02/11/20 04:16 96 02/11/20 04:15 112 H 88/63 95 02/11/20 04:00 98.4 F 113 H 103 H 30 H 105/48 97 02/11/20 03:00 118 H 32 H 105/48 93 02/11/20 02:00 112 H 32 H 95/58 95 02/11/20 01:00 121 H 33 H 106/70 02/11/20 00:08 121 H 115/75 96 02/11/20 00:00 98.8 F 136 H 103 H 32 H 115/75 95 02/10/20 23:00 115 H 28 H 109/65 96 02/10/20 22:00 118 H 40 H 103/79 94 02/10/20 21:00 120 H 35 H 100/70 97 02/10/20 20:12 95 02/10/20 20:10 116 H 99/69 95 02/10/20 20:06 95 02/10/20 20:00 97.8 F 133 H 133 H 34 H 99/69 94 02/10/20 19:00 126 H 25 H 108/77 95 02/10/20 18:00 113 H 26 H 91/67 97 02/10/20 17:31 110 H 99/74 02/10/20 17:30 126 H 94/67 02/10/20 17:00 132 H 34 H 94/67 98 02/10/20 16:40 95 02/10/20 16:39 97 02/10/20 16:00 98.0 F 117 H 121 H 30 H 93/64 96 02/10/20 15:00 122 H 24 100/68 100 02/10/20 14:00 99 H 22 94/71 94 02/10/20 13:29 138 H 125/74 02/10/20 13:00 131 H 22 125/74 95 02/10/20 12:00 98.4 F 149 H 110 H 22 122/67 97 - Physical Examination General: No Apparent Distress (ALERT), Other (s/p trach) HEENT: Positive: PERRL Cardiac: Positive: irregularly irregular Neuro: Positive: Weakness - Allied health notes Allied health notes reviewed: nursing
--- NOTE | 2020-02-11 14:42 | Progress Note ---
Assessment and Plan Acute hypoxemic respiratory failure Bilateral pneumonia, community acquired. Acute LLL branch P.E. Acute DVT Person under investigation for COVID-19 infection. Acute congestive heart failure exacerbation. History of cerebrovascular accident. Acute chronic obstructive pulmonary disease exacerbation. Hypertension and hypertensive urgency at presentation. History of arthritis. Leukocytosis. Lactic acidosis. Oropharyngeal dysphagia - KCL 40 meq p.o. X 1 - continue rate control per cardiology team - continue prn haldol for agitation to avoid hypoventilation (stopped Lorazepam) - hold weaning today - continue care as below otherwise; - continue daily SAT's and SBT assessment as tolerated - continue Flomax - antiinfective's per ID rec's - Midodrine for BP support - prn mucomyst nebs re: secretions - continue full anticoagulation with Apixaban - continue seroquel for anxiolysis / delirium - COVID isolation per facility protocol - prn diuresis while following electrolytes / I's & O's - continue to wean oxygen for O2 sat's > 92% - continue bronchodilators with routine trach care and pulmonary hygiene per RT - continue Robinul & Scopolamine for secretion control - VAP bundle addressed (Aspiration precautions, HOB >40) - continue to wean per pulmonary driven protocols - sedation target is RASS 0 to -1 - continue prn analgesia per CPOT score - follow clinically re: fever curves / trend WBC - Avoid delirium (no benzodiazepines if they can be avoided) - Maintain sleep-wake cycle - enteral nutrition at goal rate as tolerated - continue accucheck's with glycemic control per SSI for target blood glucose goal of 140-180 mg/dL while critically ill; Avoid hypoglycemia - for VTE he is on IV Heparin - continue stress ulcer prophylaxis with Famotidine - continue mobility protocols for pressure ulcer prophylaxis - continue fall precautions - continue wound care management per RN / WCT - Supportive transfusions to keep HgB>7g/dL - CXR's and ABG's prn - Continue to monitor neurologic function - Continue chronic home medications - Continue all supportive care ........ re-evaluate in am & prn CONDITION: CRITICAL PROGNOSIS: GUARDED CODE STATUS: FULL CODE The high probability of a clinically significant, sudden or life threatening deterioration of the [Respiratory, cardiovascular & neurological] system(s) required my full and direct attention, intervention and personal management. The aggregate critical care time was [35] minutes without overlap. Time includes spent on [x] Data Review and interpretation [x] Patient assessment and monitoring of vital signs [x] Documentation [x] Medication orders and management Subjective Date of service: 02/11/20 Principal diagnosis: Ac hypoxemic resp failure; Pneumonia; PUI COVID-19; CHF; COPD; HTN Interval history: Patient is seen today for: Acute hypoxemic respiratory failure; [place]. Pneumonia (CAP); PUI COVID-19 infection; AE-CHF; AE-COPD; H/O CVA; HTN Seen and examined at bedside; 24 hour events reviewed; nursing and respiratory care staff consulted; no adverse overnight events reported to me; resting peacefully in bed; has been hemodynamically unstable today with tachy arrythmia's and worsening encephalopathy; weaning on hold today; no emesis or overt aspiration; no high grade fevers Objective Vital Signs - 12hr 02/11/20 02/11/20 02/11/20 03:00 04:00 04:15 Temperature 98.4 F Pulse Rate 118 H 113 H 112 H Pulse Rate [ 103 H From Monitor] Respiratory 32 H 30 H Rate Blood Pressure 105/48 105/48 88/63 O2 Sat by Pulse 93 97 95 Oximetry O2 Sat by Pulse Oximetry [ Assessment] 02/11/20 02/11/20 02/11/20 04:16 05:00 06:00 Temperature Pulse Rate 114 H 116 H Pulse Rate [ From Monitor] Respiratory 23 36 H Rate Blood Pressure 88/63 88/63 O2 Sat by Pulse 96 95 Oximetry O2 Sat by Pulse 96 Oximetry [ Assessment] 02/11/20 02/11/20 02/11/20 07:00 08:00 08:03 Temperature 98.0 F Pulse Rate 110 H 121 H 107 H Pulse Rate [ 103 H From Monitor] Respiratory 27 H 34 H 27 H Rate Blood Pressure 113/69 93/67 93/67 O2 Sat by Pulse 94 90 97 Oximetry O2 Sat by Pulse Oximetry [ Assessment] 02/11/20 02/11/20 02/11/20 08:46 09:00 10:00 Temperature Pulse Rate 110 H 114 H 126 H Pulse Rate [ From Monitor] Respiratory 28 H 29 H Rate Blood Pressure 93/67 91/67 91/67 O2 Sat by Pulse 97 96 Oximetry O2 Sat by Pulse Oximetry [ Assessment] 02/11/20 02/11/20 02/11/20 11:00 11:27 12:00 Temperature 99.6 F Pulse Rate 120 H 123 H Pulse Rate [ From Monitor] Respiratory 27 H Rate Blood Pressure 93/66 127/80 O2 Sat by Pulse 94 97 Oximetry O2 Sat by Pulse Oximetry [ Assessment] 02/11/20 02/11/20 13:58 14:30 Temperature Pulse Rate 138 H Pulse Rate [ From Monitor] Respiratory Rate Blood Pressure 88/60 O2 Sat by Pulse Oximetry O2 Sat by Pulse 99 Oximetry [ Assessment] Constitutional: appears uncomfortable, other (elelelderly and obese male, normocephalic with mildly increased respiratory effort at rest) Eyes: non-icteric ENT: oropharynx moist, other (+ midline tracheostomy) Neck: supple, no JVD Effort: mildly labored Ascultation: Bilateral: diminished breath sounds, rhonchi (and referred upper ai rway sounds), other (tracheal secretions ) Percussion: Bilateral: not dull Cardiovascular: irregular rhythm, other (flow murmur) Gastrointestinal: normoactive bowel sounds, soft, non-tender, non-distended (protuberant), other (protuberant; PEG in place) Integumentary: normal Extremities: no cyanosis, pulses normal, no ischemia or petechiae, edema (bilateral upper ) Neurologic: non-focal exam (moves extremities), pupils equal and round, CN II- XII normal, unable to assess Psychiatric: other (unable to assess re: AMS) CBC and BMP: 02/10/20 07:40 02/10/20 07:40 ABG, PT/INR, D-dimer: ABG ABG pH 7.407 pH Units (7.350-7.450) 02/09/20 21:40 POC ABG pCO2 45.6 mmHg (32.0-48.0) 01/12/20 13:58 ABG pCO2 54.1 mm Hg 02/09/20 21:40 POC ABG pO2 76.6 mmHg (83-108) L 01/12/20 13:58 ABG pO2 59.8 mm Hg (80.0-90.0) L 02/09/20 21:40 POC ABG HCO3 31.2 01/12/20 13:58 ABG O2 Saturation 88.9 % (95.0-99.0) L 02/09/20 21:40 PT/INR, D-dimer PT 27.0 Sec. (12.2-14.9) H 02/07/20 15:03 INR 2.46 (0.87-1.13) H 02/07/20 15:03 Abnormal lab findings: Abnormal Labs 11/24/19 11/24/19 11/24/19 02:53 02:53 03:45 WBC 14.3 H RBC Hgb Hct MCHC RDW 17.2 H MCV MCH Lymph % (Auto) [place] % (Auto) [place] # Eos # Lymph # (Auto) [place] # (Auto) Eos # (Auto) Seg Neutrophils % Seg Neuts % (Manual) Baso # (Auto) Lymphocytes % (Manual) Monocytes % (Manual) Eosinophils % (Manual) Basophils % (Manual) Seg Neutrophils # Seg Neutrophils # Man 8.3 H Lymphocytes # (Manual) Monocytes # (Manual) 0.9 H Eosinophils # (Manual) Nucleated RBC % Basophils # (Manual) PT INR APTT Heparin Anti-Xa Level ABG pH 7.313 L POC ABG pO2 ABG pO2 102.8 H ABG HCO3 ABG O2 Saturation ABG Base Excess -2.9 L POC ABG pCO2 ABG Hemoglobin ABG Oxyhemoglobin ABG Glucose Oxyhemoglobin 93.9 L Sodium Potassium Chloride Carbon Dioxide BUN Creatinine Glucose 195 H POC Glucose Lactic Acid Calcium Phosphorus Magnesium AST ALT Lactate Dehydrogenase Total Bilirubin Direct Bilirubin CK-MB (CK-2) 4.3 H C-Reactive Protein NT-Pro-B Natriuret Pep 1181 H Total Protein Albumin Arterial Blood Glucose Urine WBC (Auto) Urine Creatinine 11/24/19 11/24/19 11/24/19 04:53 04:53 10:37 WBC RBC Hgb Hct MCHC RDW MCV MCH Lymph % (Auto) [place] % (Auto) [place] # Eos # Lymph # (Auto) [place] # (Auto) Eos # (Auto) Seg Neutrophils % Seg Neuts % (Manual) Baso # (Auto) Lymphocytes % (Manual) Monocytes % (Manual) Eosinophils % (Manual) Basophils % (Manual) Seg Neutrophils # Seg Neutrophils # Man Lymphocytes # (Manual) Monocytes # (Manual) Eosinophils # (Manual) Nucleated RBC % Basophils # (Manual) PT INR APTT Heparin Anti-Xa Level ABG pH POC ABG pO2 ABG pO2 ABG HCO3 ABG O2 Saturation ABG Base Excess POC ABG pCO2 ABG Hemoglobin ABG Oxyhemoglobin ABG Glucose Oxyhemoglobin Sodium Potassium Chloride Carbon Dioxide BUN Creatinine Glucose 162 H POC Glucose Lactic Acid 2.40 H* 2.50 H* Calcium Phosphorus Magnesium AST ALT Lactate Dehydrogenase 240 H Total Bilirubin Direct Bilirubin CK-MB (CK-2) C-Reactive Protein NT-Pro-B Natriuret Pep Total Protein Albumin Arterial Blood Glucose Urine WBC (Auto) Urine Creatinine 11/24/19 11/24/19 11/24/19 12:21 14:50 19:54 WBC RBC Hgb Hct MCHC RDW MCV MCH Lymph % (Auto) [place] % (Auto) [place] # Eos # Lymph # (Auto) [place] # (Auto) Eos # (Auto) Seg Neutrophils % Seg Neuts % (Manual) Baso # (Auto) Lymphocytes % (Manual) Monocytes % (Manual) Eosinophils % (Manual) Basophils % (Manual) Seg Neutrophils # Seg Neutrophils # Man Lymphocytes # (Manual) Monocytes # (Manual) Eosinophils # (Manual) Nucleated RBC % Basophils # (Manual) PT INR APTT Heparin Anti-Xa Level ABG pH POC ABG pO2 ABG pO2 ABG HCO3 ABG O2 Saturation ABG Base Excess POC ABG pCO2 ABG Hemoglobin ABG Oxyhemoglobin ABG Glucose Oxyhemoglobin Sodium Potassium Chloride Carbon Dioxide BUN Creatinine Glucose POC Glucose 145 H 143 H 124 H Lactic Acid Calcium Phosphorus Magnesium AST ALT Lactate Dehydrogenase Total Bilirubin Direct Bilirubin CK-MB (CK-2) C-Reactive Protein NT-Pro-B Natriuret Pep Total Protein Albumin Arterial Blood Glucose Urine WBC (Auto) Urine Creatinine 11/25/19 11/25/19 11/25/19 00:18 03:18 05:11 WBC 13.7 H RBC Hgb Hct MCHC RDW 17.1 H MCV MCH Lymph % (Auto) 10.8 L [place] % (Auto) 8.7 H [place] # 1.2 H Eos # Lymph # (Auto) [place] # (Auto) Eos # (Auto) Seg Neutrophils % 80.2 H Seg Neuts % (Manual) Baso # (Auto) Lymphocytes % (Manual) Monocytes % (Manual) Eosinophils % (Manual) Basophils % (Manual) Seg Neutrophils # 11.0 H Seg Neutrophils # Man Lymphocytes # (Manual) Monocytes # (Manual) Eosinophils # (Manual) Nucleated RBC % Basophils # (Manual) PT INR APTT Heparin Anti-Xa Level ABG pH 7.333 L POC ABG pO2 ABG pO2 61.2 L ABG HCO3 ABG O2 Saturation 90.2 L ABG Base Excess POC ABG pCO2 ABG Hemoglobin 13.7 L ABG Oxyhemoglobin ABG Glucose Oxyhemoglobin 88.2 L Sodium Potassium Chloride Carbon Dioxide BUN Creatinine Glucose POC Glucose 109 H Lactic Acid Calcium Phosphorus Magnesium AST ALT Lactate Dehydrogenase Total Bilirubin Direct Bilirubin CK-MB (CK-2) C-Reactive Protein NT-Pro-B Natriuret Pep Total Protein Albumin Arterial Blood Glucose Urine WBC (Auto) Urine Creatinine 11/25/19 11/25/19 11/26/19 05:11 11:40 03:12 WBC RBC Hgb Hct MCHC RDW MCV MCH Lymph % (Auto) [place] % (Auto) [place] # Eos # Lymph # (Auto) [place] # (Auto) Eos # (Auto) Seg Neutrophils % Seg Neuts % (Manual) Baso # (Auto) Lymphocytes % (Manual) Monocytes % (Manual) Eosinophils % (Manual) Basophils % (Manual) Seg Neutrophils # Seg Neutrophils # Man Lymphocytes # (Manual) Monocytes # (Manual) Eosinophils # (Manual) Nucleated RBC % Basophils # (Manual) PT INR APTT Heparin Anti-Xa Level ABG pH POC ABG pO2 ABG pO2 155.1 H ABG HCO3 27.8 H ABG O2 Saturation ABG Base Excess POC ABG pCO2 ABG Hemoglobin 12.2 L ABG Oxyhemoglobin ABG Glucose Oxyhemoglobin Sodium Potassium Chloride Carbon Dioxide BUN 23 H Creatinine Glucose 110 H POC Glucose 108 H Lactic Acid Calcium Phosphorus Magnesium AST ALT Lactate Dehydrogenase Total Bilirubin Direct Bilirubin CK-MB (CK-2) C-Reactive Protein NT-Pro-B Natriuret Pep Total Protein Albumin Arterial Blood Glucose Urine WBC (Auto) Urine Creatinine 11/26/19 11/26/19 11/26/19 06:17 10:43 10:43 WBC 11.4 H RBC Hgb Hct MCHC RDW 17.1 H MCV MCH Lymph % (Auto) [place] % (Auto) [place] # Eos # Lymph # (Auto) [place] # (Auto) Eos # (Auto) Seg Neutrophils % Seg Neuts % (Manual) Baso # (Auto) Lymphocytes % (Manual) Monocytes % (Manual) Eosinophils % (Manual) Basophils % (Manual) Seg Neutrophils # Seg Neutrophils # Man Lymphocytes # (Manual) Monocytes # (Manual) Eosinophils # (Manual) Nucleated RBC % Basophils # (Manual) PT INR APTT Heparin Anti-Xa Level ABG pH POC ABG pO2 ABG pO2 ABG HCO3 ABG O2 Saturation ABG Base Excess POC ABG pCO2 ABG Hemoglobin ABG Oxyhemoglobin ABG Glucose Oxyhemoglobin Sodium Potassium Chloride Carbon Dioxide BUN 29 H Creatinine Glucose POC Glucose 107 H Lactic Acid Calcium Phosphorus Magnesium AST ALT Lactate Dehydrogenase Total Bilirubin Direct Bilirubin CK-MB (CK-2) C-Reactive Protein NT-Pro-B Natriuret Pep Total Protein Albumin Arterial Blood Glucose Urine WBC (Auto) Urine Creatinine 11/26/19 11/27/19 11/27/19 17:11 01:53 04:11 WBC RBC Hgb Hct MCHC RDW MCV MCH Lymph % (Auto) [place] % (Auto) [place] # Eos # Lymph # (Auto) [place] # (Auto) Eos # (Auto) Seg Neutrophils % Seg Neuts % (Manual) Baso # (Auto) Lymphocytes % (Manual) Monocytes % (Manual) Eosinophils % (Manual) Basophils % (Manual) Seg Neutrophils # Seg Neutrophils # Man Lymphocytes # (Manual) Monocytes # (Manual) Eosinophils # (Manual) Nucleated RBC % Basophils # (Manual) PT INR APTT Heparin Anti-Xa Level ABG pH POC ABG pO2 ABG pO2 ABG HCO3 29.2 H ABG O2 Saturation ABG Base Excess 3.4 H POC ABG pCO2 ABG Hemoglobin 13.3 L ABG Oxyhemoglobin ABG Glucose Oxyhemoglobin 94.5 L Sodium Potassium Chloride Carbon Dioxide BUN Creatinine Glucose POC Glucose 113 H 108 H Lactic Acid Calcium Phosphorus Magnesium AST ALT Lactate Dehydrogenase Total Bilirubin Direct Bilirubin CK-MB (CK-2) C-Reactive Protein NT-Pro-B Natriuret Pep Total Protein Albumin Arterial Blood Glucose Urine WBC (Auto) Urine Creatinine 11/27/19 11/28/19 11/28/19 05:27 05:00 05:25 WBC RBC Hgb Hct MCHC RDW MCV MCH Lymph % (Auto) [place] % (Auto) [place] # Eos # Lymph # (Auto) [place] # (Auto) Eos # (Auto) Seg Neutrophils % Seg Neuts % (Manual) Baso # (Auto) Lymphocytes % (Manual) Monocytes % (Manual) Eosinophils % (Manual) Basophils % (Manual) Seg Neutrophils # Seg Neutrophils # Man Lymphocytes # (Manual) Monocytes # (Manual) Eosinophils # (Manual) Nucleated RBC % Basophils # (Manual) PT INR APTT Heparin Anti-Xa Level ABG pH POC ABG pO2 68.1 L ABG pO2 ABG HCO3 ABG O2 Saturation ABG Base Excess POC ABG pCO2 ABG Hemoglobin ABG Oxyhemoglobin 91.2 L ABG Glucose Oxyhemoglobin Sodium Potassium Chloride Carbon Dioxide BUN Creatinine Glucose POC Glucose 111 H 110 H Lactic Acid Calcium Phosphorus Magnesium AST ALT Lactate Dehydrogenase Total Bilirubin Direct Bilirubin CK-MB (CK-2) C-Reactive Protein NT-Pro-B Natriuret Pep Total Protein Albumin Arterial Blood Glucose Urine WBC (Auto) Urine Creatinine 11/28/19 11/28/19 11/28/19 12:08 13:47 13:47 WBC 11.3 H RBC Hgb Hct MCHC RDW 16.1 H MCV MCH Lymph % (Auto) [place] % (Auto) 9.9 H [place] # 1.1 H Eos # Lymph # (Auto) [place] # (Auto) Eos # (Auto) Seg Neutrophils % 71.4 H Seg Neuts % (Manual) Baso # (Auto) Lymphocytes % (Manual) Monocytes % (Manual) Eosinophils % (Manual) Basophils % (Manual) Seg Neutrophils # 8.1 H Seg Neutrophils # Man Lymphocytes # (Manual) Monocytes # (Manual) Eosinophils # (Manual) Nucleated RBC % Basophils # (Manual) PT INR APTT Heparin Anti-Xa Level ABG pH POC ABG pO2 ABG pO2 ABG HCO3 ABG O2 Saturation ABG Base Excess POC ABG pCO2 ABG Hemoglobin ABG Oxyhemoglobin ABG Glucose Oxyhemoglobin Sodium Potassium Chloride Carbon Dioxide BUN 23 H Creatinine Glucose 123 H POC Glucose 112 H Lactic Acid Calcium Phosphorus Magnesium AST ALT Lactate Dehydrogenase Total Bilirubin Direct Bilirubin CK-MB (CK-2) C-Reactive Protein NT-Pro-B Natriuret Pep Total Protein Albumin 3.7 L Arterial Blood Glucose Urine WBC (Auto) Urine Creatinine 11/28/19 11/29/19 11/29/19 17:26 03:55 17:04 WBC RBC Hgb Hct MCHC RDW MCV MCH Lymph % (Auto) [place] % (Auto) [place] # Eos # Lymph # (Auto) [place] # (Auto) Eos # (Auto) Seg Neutrophils % Seg Neuts % (Manual) Baso # (Auto) Lymphocytes % (Manual) Monocytes % (Manual) Eosinophils % (Manual) Basophils % (Manual) Seg Neutrophils # Seg Neutrophils # Man Lymphocytes # (Manual) Monocytes # (Manual) Eosinophils # (Manual) Nucleated RBC % Basophils # (Manual) PT INR APTT Heparin Anti-Xa Level ABG pH POC ABG pO2 ABG pO2 65.7 L ABG HCO3 28.3 H ABG O2 Saturation 93.9 L ABG Base Excess 3.6 H POC ABG pCO2 ABG Hemoglobin 13.3 L ABG Oxyhemoglobin ABG Glucose Oxyhemoglobin 91.5 L Sodium Potassium Chloride Carbon Dioxide BUN Creatinine Glucose POC Glucose 123 H 119 H Lactic Acid Calcium Phosphorus Magnesium AST ALT Lactate Dehydrogenase Total Bilirubin Direct Bilirubin CK-MB (CK-2) C-Reactive Protein NT-Pro-B Natriuret Pep Total Protein Albumin Arterial Blood Glucose Urine WBC (Auto) Urine Creatinine 11/30/19 11/30/19 11/30/19 04:17 04:17 04:56 WBC 13.4 H RBC Hgb Hct MCHC RDW 15.6 H MCV MCH Lymph % (Auto) [place] % (Auto) [place] # Eos # Lymph # (Auto) [place] # (Auto) Eos # (Auto) Seg Neutrophils % Seg Neuts % (Manual) Baso # (Auto) Lymphocytes % (Manual) Monocytes % (Manual) Eosinophils % (Manual) Basophils % (Manual) Seg Neutrophils # Seg Neutrophils # Man Lymphocytes # (Manual) Monocytes # (Manual) Eosinophils # (Manual) Nucleated RBC % Basophils # (Manual) PT INR APTT Heparin Anti-Xa Level ABG pH POC ABG pO2 ABG pO2 56.3 L ABG HCO3 29.3 H ABG O2 Saturation 91.5 L ABG Base Excess 4.7 H POC ABG pCO2 ABG Hemoglobin 12.1 L ABG Oxyhemoglobin ABG Glucose Oxyhemoglobin 89.2 L Sodium 147 H Potassium Chloride Carbon Dioxide BUN 30 H Creatinine Glucose 124 H POC Glucose Lactic Acid Calcium Phosphorus Magnesium AST ALT Lactate Dehydrogenase Total Bilirubin Direct Bilirubin CK-MB (CK-2) C-Reactive Protein NT-Pro-B Natriuret Pep Total Protein Albumin 3.8 L Arterial Blood Glucose Urine WBC (Auto) Urine Creatinine 11/30/19 11/30/19 11/30/19 05:51 11:54 18:17 WBC RBC Hgb Hct MCHC RDW MCV MCH Lymph % (Auto) [place] % (Auto) [place] # Eos # Lymph # (Auto) [place] # (Auto) Eos # (Auto) Seg Neutrophils % Seg Neuts % (Manual) Baso # (Auto) Lymphocytes % (Manual) Monocytes % (Manual) Eosinophils % (Manual) Basophils % (Manual) Seg Neutrophils # Seg Neutrophils # Man Lymphocytes # (Manual) Monocytes # (Manual) Eosinophils # (Manual) Nucleated RBC % Basophils # (Manual) PT INR APTT Heparin Anti-Xa Level ABG pH POC ABG pO2 ABG pO2 ABG HCO3 ABG O2 Saturation ABG Base Excess POC ABG pCO2 ABG Hemoglobin ABG Oxyhemoglobin ABG Glucose Oxyhemoglobin Sodium Potassium Chloride Carbon Dioxide BUN Creatinine Glucose POC Glucose 127 H 115 H 143 H Lactic Acid Calcium Phosphorus Magnesium AST ALT Lactate Dehydrogenase Total Bilirubin Direct Bilirubin CK-MB (CK-2) C-Reactive Protein NT-Pro-B Natriuret Pep Total Protein Albumin Arterial Blood Glucose Urine WBC (Auto) Urine Creatinine 12/01/19 12/01/19 12/01/19 01:18 05:22 12:16 WBC RBC Hgb Hct MCHC RDW MCV MCH Lymph % (Auto) [place] % (Auto) [place] # Eos # Lymph # (Auto) [place] # (Auto) Eos # (Auto) Seg Neutrophils % Seg Neuts % (Manual) Baso # (Auto) Lymphocytes % (Manual) Monocytes % (Manual) Eosinophils % (Manual) Basophils % (Manual) Seg Neutrophils # Seg Neutrophils # Man Lymphocytes # (Manual) Monocytes # (Manual) Eosinophils # (Manual) Nucleated RBC % Basophils # (Manual) PT INR APTT Heparin Anti-Xa Level ABG pH POC ABG pO2 ABG pO2 ABG HCO3 ABG O2 Saturation ABG Base Excess POC ABG pCO2 ABG Hemoglobin ABG Oxyhemoglobin ABG Glucose Oxyhemoglobin Sodium Potassium 3.5 L Chloride 107.8 H Carbon Dioxide BUN 37 H Creatinine Glucose 157 H POC Glucose 118 H 148 H Lactic Acid Calcium 8.2 L D Phosphorus Magnesium AST 48 H ALT 60 H Lactate Dehydrogenase 194 H Total Bilirubin Direct Bilirubin CK-MB (CK-2) C-Reactive Protein 8.50 H NT-Pro-B Natriuret Pep Total Protein 5.5 L Albumin 2.8 L Arterial Blood Glucose Urine WBC (Auto) Urine Creatinine 12/01/19 12/02/19 12/02/19 18:04 00:05 05:16 WBC 11.4 H RBC Hgb Hct MCHC RDW 15.9 H MCV MCH Lymph % (Auto) [place] % (Auto) 9.9 H [place] # 1.1 H Eos # Lymph # (Auto) [place] # (Auto) Eos # (Auto) Seg Neutrophils % 70.3 H Seg Neuts % (Manual) Baso # (Auto) Lymphocytes % (Manual) Monocytes % (Manual) Eosinophils % (Manual) Basophils % (Manual) Seg Neutrophils # 8.0 H Seg Neutrophils # Man Lymphocytes # (Manual) Monocytes # (Manual) Eosinophils # (Manual) Nucleated RBC % Basophils # (Manual) PT INR APTT Heparin Anti-Xa Level ABG pH POC ABG pO2 ABG pO2 ABG HCO3 ABG O2 Saturation ABG Base Excess POC ABG pCO2 ABG Hemoglobin ABG Oxyhemoglobin ABG Glucose Oxyhemoglobin Sodium Potassium Chloride Carbon Dioxide BUN Creatinine Glucose POC Glucose 143 H 107 H Lactic Acid Calcium Phosphorus Magnesium AST ALT Lactate Dehydrogenase Total Bilirubin Direct Bilirubin CK-MB (CK-2) C-Reactive Protein NT-Pro-B Natriuret Pep Total Protein Albumin Arterial Blood Glucose Urine WBC (Auto) Urine Creatinine 12/02/19 12/02/19 12/02/19 05:16 06:03 11:52 WBC RBC Hgb Hct MCHC RDW MCV MCH Lymph % (Auto) [place] % (Auto) [place] # Eos # Lymph # (Auto) [place] # (Auto) Eos # (Auto) Seg Neutrophils % Seg Neuts % (Manual) Baso # (Auto) Lymphocytes % (Manual) Monocytes % (Manual) Eosinophils % (Manual) Basophils % (Manual) Seg Neutrophils # Seg Neutrophils # Man Lymphocytes # (Manual) Monocytes # (Manual) Eosinophils # (Manual) Nucleated RBC % Basophils # (Manual) PT INR APTT Heparin Anti-Xa Level ABG pH POC ABG pO2 ABG pO2 ABG HCO3 ABG O2 Saturation ABG Base Excess POC ABG pCO2 ABG Hemoglobin ABG Oxyhemoglobin ABG Glucose Oxyhemoglobin Sodium 146 H Potassium Chloride Carbon Dioxide BUN 28 H Creatinine Glucose 123 H POC Glucose 110 H 152 H Lactic Acid Calcium Phosphorus Magnesium AST ALT Lactate Dehydrogenase Total Bilirubin Direct Bilirubin CK-MB (CK-2) C-Reactive Protein NT-Pro-B Natriuret Pep Total Protein Albumin Arterial Blood Glucose Urine WBC (Auto) Urine Creatinine 12/02/19 12/02/19 12/02/19 12:58 17:58 23:36 WBC RBC Hgb Hct MCHC RDW MCV MCH Lymph % (Auto) [place] % (Auto) [place] # Eos # Lymph # (Auto) [place] # (Auto) Eos # (Auto) Seg Neutrophils % Seg Neuts % (Manual) Baso # (Auto) Lymphocytes % (Manual) Monocytes % (Manual) Eosinophils % (Manual) Basophils % (Manual) Seg Neutrophils # Seg Neutrophils # Man Lymphocytes # (Manual) Monocytes # (Manual) Eosinophils # (Manual) Nucleated RBC % Basophils # (Manual) PT INR APTT Heparin Anti-Xa Level ABG pH POC ABG pO2 78.1 L ABG pO2 ABG HCO3 ABG O2 Saturation ABG Base Excess POC ABG pCO2 ABG Hemoglobin ABG Oxyhemoglobin ABG Glucose Oxyhemoglobin Sodium Potassium Chloride Carbon Dioxide BUN Creatinine Glucose POC Glucose 120 H 123 H Lactic Acid Calcium Phosphorus Magnesium AST ALT Lactate Dehydrogenase Total Bilirubin Direct Bilirubin CK-MB (CK-2) C-Reactive Protein NT-Pro-B Natriuret Pep Total Protein Albumin Arterial Blood Glucose Urine WBC (Auto) Urine Creatinine 12/03/19 12/03/19 12/03/19 06:03 06:14 11:46 WBC RBC Hgb Hct MCHC RDW MCV MCH Lymph % (Auto) [place] % (Auto) [place] # Eos # Lymph # (Auto) [place] # (Auto) Eos # (Auto) Seg Neutrophils % Seg Neuts % (Manual) Baso # (Auto) Lymphocytes % (Manual) Monocytes % (Manual) Eosinophils % (Manual) Basophils % (Manual) Seg Neutrophils # Seg Neutrophils # Man Lymphocytes # (Manual) Monocytes # (Manual) Eosinophils # (Manual) Nucleated RBC % Basophils # (Manual) PT INR APTT Heparin Anti-Xa Level ABG pH POC ABG pO2 ABG pO2 ABG HCO3 ABG O2 Saturation ABG Base Excess POC ABG pCO2 ABG Hemoglobin ABG Oxyhemoglobin ABG Glucose Oxyhemoglobin Sodium Potassium Chloride Carbon Dioxide BUN Creatinine Glucose POC Glucose 142 H 130 H Lactic Acid Calcium Phosphorus Magnesium AST ALT Lactate Dehydrogenase Total Bilirubin Direct Bilirubin CK-MB (CK-2) C-Reactive Protein NT-Pro-B Natriuret Pep Total Protein Albumin Arterial Blood Glucose Urine WBC (Auto) 8.0 H Urine Creatinine 12/03/19 12/03/19 12/04/19 15:50 17:39 00:04 WBC RBC Hgb Hct MCHC RDW MCV MCH Lymph % (Auto) [place] % (Auto) [place] # Eos # Lymph # (Auto) [place] # (Auto) Eos # (Auto) Seg Neutrophils % Seg Neuts % (Manual) Baso # (Auto) Lymphocytes % (Manual) Monocytes % (Manual) Eosinophils % (Manual) Basophils % (Manual) Seg Neutrophils # Seg Neutrophils # Man Lymphocytes # (Manual) Monocytes # (Manual) Eosinophils # (Manual) Nucleated RBC % Basophils # (Manual) PT INR APTT Heparin Anti-Xa Level ABG pH POC ABG pO2 ABG pO2 ABG HCO3 ABG O2 Saturation ABG Base Excess POC ABG pCO2 ABG Hemoglobin ABG Oxyhemoglobin ABG Glucose Oxyhemoglobin Sodium Potassium Chloride Carbon Dioxide BUN Creatinine Glucose POC Glucose 146 H 133 H Lactic Acid Calcium Phosphorus 2.40 L Magnesium AST ALT Lactate Dehydrogenase Total Bilirubin Direct Bilirubin CK-MB (CK-2) C-Reactive Protein NT-Pro-B Natriuret Pep Total Protein Albumin Arterial Blood Glucose Urine WBC (Auto) Urine Creatinine 12/04/19 12/04/19 12/04/19 03:58 03:58 05:22 WBC 12.5 H RBC Hgb 11.2 L Hct 35.2 L MCHC RDW 16.0 H MCV MCH Lymph % (Auto) [place] % (Auto) 9.6 H [place] # 1.2 H Eos # 0.5 H Lymph # (Auto) [place] # (Auto) Eos # (Auto) Seg Neutrophils % Seg Neuts % (Manual) Baso # (Auto) Lymphocytes % (Manual) Monocytes % (Manual) Eosinophils % (Manual) Basophils % (Manual) Seg Neutrophils # 8.6 H Seg Neutrophils # Man Lymphocytes # (Manual) Monocytes # (Manual) Eosinophils # (Manual) Nucleated RBC % Basophils # (Manual) PT INR APTT Heparin Anti-Xa Level ABG pH POC ABG pO2 ABG pO2 ABG HCO3 ABG O2 Saturation ABG Base Excess POC ABG pCO2 ABG Hemoglobin ABG Oxyhemoglobin ABG Glucose Oxyhemoglobin Sodium 146 H Potassium Chloride 108.6 H Carbon Dioxide BUN 30 H Creatinine 0.7 L Glucose 121 H POC Glucose 132 H Lactic Acid Calcium Phosphorus Magnesium AST ALT Lactate Dehydrogenase Total Bilirubin Direct Bilirubin CK-MB (CK-2) C-Reactive Protein NT-Pro-B Natriuret Pep Total Protein Albumin Arterial Blood Glucose Urine WBC (Auto) Urine Creatinine 12/04/19 12/04/19 12/05/19 13:26 18:43 00:19 WBC RBC Hgb Hct MCHC RDW MCV MCH Lymph % (Auto) [place] % (Auto) [place] # Eos # Lymph # (Auto) [place] # (Auto) Eos # (Auto) Seg Neutrophils % Seg Neuts % (Manual) Baso # (Auto) Lymphocytes % (Manual) Monocytes % (Manual) Eosinophils % (Manual) Basophils % (Manual) Seg Neutrophils # Seg Neutrophils # Man Lymphocytes # (Manual) Monocytes # (Manual) Eosinophils # (Manual) Nucleated RBC % Basophils # (Manual) PT INR APTT Heparin Anti-Xa Level ABG pH POC ABG pO2 ABG pO2 ABG HCO3 ABG O2 Saturation ABG Base Excess POC ABG pCO2 ABG Hemoglobin ABG Oxyhemoglobin ABG Glucose Oxyhemoglobin Sodium Potassium Chloride Carbon Dioxide BUN Creatinine Glucose POC Glucose 185 H 156 H 150 H Lactic Acid Calcium Phosphorus Magnesium AST ALT Lactate Dehydrogenase Total Bilirubin Direct Bilirubin CK-MB (CK-2) C-Reactive Protein NT-Pro-B Natriuret Pep Total Protein Albumin Arterial Blood Glucose Urine WBC (Auto) Urine Creatinine 12/05/19 12/05/19 12/05/19 03:37 03:37 05:14 WBC 16.3 H RBC Hgb 11.4 L Hct MCHC RDW 15.6 H MCV MCH Lymph % (Auto) 9.9 L [place] % (Auto) 9.7 H [place] # 1.6 H Eos # Lymph # (Auto) [place] # (Auto) Eos # (Auto) Seg Neutrophils % 78.0 H Seg Neuts % (Manual) Baso # (Auto) Lymphocytes % (Manual) Monocytes % (Manual) Eosinophils % (Manual) Basophils % (Manual) Seg Neutrophils # 12.7 H Seg Neutrophils # Man Lymphocytes # (Manual) Monocytes # (Manual) Eosinophils # (Manual) Nucleated RBC % Basophils # (Manual) PT INR APTT Heparin Anti-Xa Level ABG pH POC ABG pO2 ABG pO2 ABG HCO3 ABG O2 Saturation ABG Base Excess POC ABG pCO2 ABG Hemoglobin ABG Oxyhemoglobin ABG Glucose Oxyhemoglobin Sodium 146 H Potassium Chloride 107.2 H Carbon Dioxide BUN 27 H Creatinine 0.7 L Glucose 171 H POC Glucose 168 H Lactic Acid Calcium Phosphorus Magnesium AST ALT Lactate Dehydrogenase Total Bilirubin Direct Bilirubin CK-MB (CK-2) C-Reactive Protein NT-Pro-B Natriuret Pep Total Protein Albumin Arterial Blood Glucose Urine WBC (Auto) Urine Creatinine 12/05/19 12/05/19 12/05/19 12:31 18:10 23:58 WBC RBC Hgb Hct MCHC RDW MCV MCH Lymph % (Auto) [place] % (Auto) [place] # Eos # Lymph # (Auto) [place] # (Auto) Eos # (Auto) Seg Neutrophils % Seg Neuts % (Manual) Baso # (Auto) Lymphocytes % (Manual) Monocytes % (Manual) Eosinophils % (Manual) Basophils % (Manual) Seg Neutrophils # Seg Neutrophils # Man Lymphocytes # (Manual) Monocytes # (Manual) Eosinophils # (Manual) Nucleated RBC % Basophils # (Manual) PT INR APTT Heparin Anti-Xa Level ABG pH POC ABG pO2 ABG pO2 ABG HCO3 ABG O2 Saturation ABG Base Excess POC ABG pCO2 ABG Hemoglobin ABG Oxyhemoglobin ABG Glucose Oxyhemoglobin Sodium Potassium Chloride Carbon Dioxide BUN Creatinine Glucose POC Glucose 159 H 198 H 115 H Lactic Acid Calcium Phosphorus Magnesium AST ALT Lactate Dehydrogenase Total Bilirubin Direct Bilirubin CK-MB (CK-2) C-Reactive Protein NT-Pro-B Natriuret Pep Total Protein Albumin Arterial Blood Glucose Urine WBC (Auto) Urine Creatinine 12/06/19 12/06/19 12/06/19 05:24 05:24 05:25 WBC 14.9 H RBC Hgb 10.8 L Hct 34.0 L MCHC RDW 15.6 H MCV MCH Lymph % (Auto) 10.7 L [place] % (Auto) 8.3 H [place] # 1.2 H Eos # Lymph # (Auto) [place] # (Auto) Eos # (Auto) Seg Neutrophils % 78.7 H Seg Neuts % (Manual) Baso # (Auto) Lymphocytes % (Manual) Monocytes % (Manual) Eosinophils % (Manual) Basophils % (Manual) Seg Neutrophils # 11.7 H Seg Neutrophils # Man Lymphocytes # (Manual) Monocytes # (Manual) Eosinophils # (Manual) Nucleated RBC % Basophils # (Manual) PT INR APTT Heparin Anti-Xa Level ABG pH POC ABG pO2 ABG pO2 ABG HCO3 ABG O2 Saturation ABG Base Excess POC ABG pCO2 ABG Hemoglobin ABG Oxyhemoglobin ABG Glucose Oxyhemoglobin Sodium 148 H Potassium 5.1 H Chloride 107.6 H Carbon Dioxide BUN 27 H Creatinine 0.7 L Glucose 155 H POC Glucose 157 H Lactic Acid Calcium Phosphorus Magnesium AST ALT Lactate Dehydrogenase Total Bilirubin Direct Bilirubin CK-MB (CK-2) C-Reactive Protein NT-Pro-B Natriuret Pep Total Protein Albumin Arterial Blood Glucose Urine WBC (Auto) Urine Creatinine 12/07/19 12/07/19 12/07/19 00:13 05:34 11:33 WBC RBC Hgb Hct MCHC RDW MCV MCH Lymph % (Auto) [place] % (Auto) [place] # Eos # Lymph # (Auto) [place] # (Auto) Eos # (Auto) Seg Neutrophils % Seg Neuts % (Manual) Baso # (Auto) Lymphocytes % (Manual) Monocytes % (Manual) Eosinophils % (Manual) Basophils % (Manual) Seg Neutrophils # Seg Neutrophils # Man Lymphocytes # (Manual) Monocytes # (Manual) Eosinophils # (Manual) Nucleated RBC % Basophils # (Manual) PT INR APTT Heparin Anti-Xa Level ABG pH POC ABG pO2 ABG pO2 ABG HCO3 ABG O2 Saturation ABG Base Excess POC ABG pCO2 ABG Hemoglobin ABG Oxyhemoglobin ABG Glucose Oxyhemoglobin Sodium Potassium Chloride Carbon Dioxide BUN Creatinine Glucose POC Glucose 142 H 111 H 169 H Lactic Acid Calcium Phosphorus Magnesium AST ALT Lactate Dehydrogenase Total Bilirubin Direct Bilirubin CK-MB (CK-2) C-Reactive Protein NT-Pro-B Natriuret Pep Total Protein Albumin Arterial Blood Glucose Urine WBC (Auto) Urine Creatinine 12/07/19 12/07/19 12/07/19 12:41 13:25 18:19 WBC 12.4 H RBC 3.53 L Hgb 10.2 L Hct 32.1 L MCHC RDW 15.3 H MCV MCH Lymph % (Auto) 10.6 L [place] % (Auto) 7.8 H [place] # 1.0 H Eos # Lymph # (Auto) [place] # (Auto) Eos # (Auto) Seg Neutrophils % 77.6 H Seg Neuts % (Manual) Baso # (Auto) Lymphocytes % (Manual) Monocytes % (Manual) Eosinophils % (Manual) Basophils % (Manual) Seg Neutrophils # 9.6 H Seg Neutrophils # Man Lymphocytes # (Manual) Monocytes # (Manual) Eosinophils # (Manual) Nucleated RBC % Basophils # (Manual) PT INR APTT Heparin Anti-Xa Level ABG pH POC ABG pO2 ABG pO2 ABG HCO3 ABG O2 Saturation ABG Base Excess POC ABG pCO2 ABG Hemoglobin ABG Oxyhemoglobin ABG Glucose Oxyhemoglobin Sodium 149 H Potassium Chloride 108.4 H Carbon Dioxide BUN 26 H Creatinine 0.6 L Glucose 149 H POC Glucose 164 H Lactic Acid Calcium Phosphorus Magnesium 2.60 H AST 121 H ALT 145 H Lactate Dehydrogenase Total Bilirubin Direct Bilirubin CK-MB (CK-2) C-Reactive Protein NT-Pro-B Natriuret Pep Total Protein Albumin 2.6 L Arterial Blood Glucose Urine WBC (Auto) Urine Creatinine 12/07/19 12/08/19 12/08/19 22:25 00:02 03:55 WBC 13.3 H RBC 3.40 L Hgb 9.7 L Hct 30.8 L MCHC 31 L RDW 15.5 H MCV MCH Lymph % (Auto) [place] % (Auto) 8.1 H [place] # 1.1 H Eos # Lymph # (Auto) [place] # (Auto) Eos # (Auto) Seg Neutrophils % 73.0 H Seg Neuts % (Manual) Baso # (Auto) Lymphocytes % (Manual) Monocytes % (Manual) Eosinophils % (Manual) Basophils % (Manual) Seg Neutrophils # 9.7 H Seg Neutrophils # Man Lymphocytes # (Manual) Monocytes # (Manual) Eosinophils # (Manual) Nucleated RBC % Basophils # (Manual) PT INR APTT Heparin Anti-Xa Level 0.12 L ABG pH POC ABG pO2 ABG pO2 ABG HCO3 ABG O2 Saturation ABG Base Excess POC ABG pCO2 ABG Hemoglobin ABG Oxyhemoglobin ABG Glucose Oxyhemoglobin Sodium Potassium Chloride Carbon Dioxide BUN Creatinine Glucose POC Glucose 151 H Lactic Acid Calcium Phosphorus Magnesium AST ALT Lactate Dehydrogenase Total Bilirubin Direct Bilirubin CK-MB (CK-2) C-Reactive Protein NT-Pro-B Natriuret Pep Total Protein Albumin Arterial Blood Glucose Urine WBC (Auto) Urine Creatinine 12/08/19 12/08/19 12/08/19 03:55 05:21 06:01 WBC RBC Hgb Hct MCHC RDW MCV MCH Lymph % (Auto) [place] % (Auto) [place] # Eos # Lymph # (Auto) [place] # (Auto) Eos # (Auto) Seg Neutrophils % Seg Neuts % (Manual) Baso # (Auto) Lymphocytes % (Manual) Monocytes % (Manual) Eosinophils % (Manual) Basophils % (Manual) Seg Neutrophils # Seg Neutrophils # Man Lymphocytes # (Manual) Monocytes # (Manual) Eosinophils # (Manual) Nucleated RBC % Basophils # (Manual) PT INR APTT Heparin Anti-Xa Level 0.20 L ABG pH POC ABG pO2 ABG pO2 ABG HCO3 ABG O2 Saturation ABG Base Excess POC ABG pCO2 ABG Hemoglobin ABG Oxyhemoglobin ABG Glucose Oxyhemoglobin Sodium 149 H Potassium Chloride 108.0 H Carbon Dioxide BUN 28 H Creatinine 0.6 L Glucose 144 H POC Glucose 143 H Lactic Acid Calcium Phosphorus Magnesium AST 98 H ALT 145 H Lactate Dehydrogenase Total Bilirubin Direct Bilirubin CK-MB (CK-2) C-Reactive Protein NT-Pro-B Natriuret Pep Total Protein 6.0 L Albumin 2.4 L Arterial Blood Glucose Urine WBC (Auto) Urine Creatinine 12/08/19 12/08/19 12/08/19 12:08 18:11 23:53 WBC RBC Hgb Hct MCHC RDW MCV MCH Lymph % (Auto) [place] % (Auto) [place] # Eos # Lymph # (Auto) [place] # (Auto) Eos # (Auto) Seg Neutrophils % Seg Neuts % (Manual) Baso # (Auto) Lymphocytes % (Manual) Monocytes % (Manual) Eosinophils % (Manual) Basophils % (Manual) Seg Neutrophils # Seg Neutrophils # Man Lymphocytes # (Manual) Monocytes # (Manual) Eosinophils # (Manual) Nucleated RBC % Basophils # (Manual) PT INR APTT Heparin Anti-Xa Level ABG pH POC ABG pO2 ABG pO2 ABG HCO3 ABG O2 Saturation ABG Base Excess POC ABG pCO2 ABG Hemoglobin ABG Oxyhemoglobin ABG Glucose Oxyhemoglobin Sodium Potassium Chloride Carbon Dioxide BUN Creatinine Glucose POC Glucose 172 H 122 H 162 H Lactic Acid Calcium Phosphorus Magnesium AST ALT Lactate Dehydrogenase Total Bilirubin Direct Bilirubin CK-MB (CK-2) C-Reactive Protein NT-Pro-B Natriuret Pep Total Protein Albumin Arterial Blood Glucose Urine WBC (Auto) Urine Creatinine 12/09/19 12/09/19 12/09/19 04:03 04:03 05:53 WBC RBC Hgb 9.1 L Hct 28.9 L MCHC RDW MCV MCH Lymph % (Auto) [place] % (Auto) [place] # Eos # Lymph # (Auto) [place] # (Auto) Eos # (Auto) Seg Neutrophils % Seg Neuts % (Manual) Baso # (Auto) Lymphocytes % (Manual) Monocytes % (Manual) Eosinophils % (Manual) Basophils % (Manual) Seg Neutrophils # Seg Neutrophils # Man Lymphocytes # (Manual) Monocytes # (Manual) Eosinophils # (Manual) Nucleated RBC % Basophils # (Manual) PT INR APTT Heparin Anti-Xa Level 0.15 L ABG pH POC ABG pO2 ABG pO2 ABG HCO3 ABG O2 Saturation ABG Base Excess POC ABG pCO2 ABG Hemoglobin ABG Oxyhemoglobin ABG Glucose Oxyhemoglobin Sodium Potassium Chloride Carbon Dioxide BUN Creatinine Glucose POC Glucose 124 H Lactic Acid Calcium Phosphorus Magnesium AST ALT Lactate Dehydrogenase Total Bilirubin Direct Bilirubin CK-MB (CK-2) C-Reactive Protein NT-Pro-B Natriuret Pep Total Protein Albumin Arterial Blood Glucose Urine WBC (Auto) Urine Creatinine 12/09/19 12/09/19 12/10/19 09:43 12:41 00:13 WBC RBC Hgb Hct MCHC RDW MCV MCH Lymph % (Auto) [place] % (Auto) [place] # Eos # Lymph # (Auto) [place] # (Auto) Eos # (Auto) Seg Neutrophils % Seg Neuts % (Manual) Baso # (Auto) Lymphocytes % (Manual) Monocytes % (Manual) Eosinophils % (Manual) Basophils % (Manual) Seg Neutrophils # Seg Neutrophils # Man Lymphocytes # (Manual) Monocytes # (Manual) Eosinophils # (Manual) Nucleated RBC % Basophils # (Manual) PT INR APTT Heparin Anti-Xa Level ABG pH POC ABG pO2 ABG pO2 ABG HCO3 ABG O2 Saturation ABG Base Excess POC ABG pCO2 ABG Hemoglobin ABG Oxyhemoglobin ABG Glucose Oxyhemoglobin Sodium Potassium Chloride Carbon Dioxide BUN 25 H Creatinine 0.6 L Glucose 131 H POC Glucose 109 H 120 H Lactic Acid Calcium Phosphorus Magnesium AST ALT Lactate Dehydrogenase Total Bilirubin Direct Bilirubin CK-MB (CK-2) C-Reactive Protein NT-Pro-B Natriuret Pep Total Protein Albumin Arterial Blood Glucose Urine WBC (Auto) Urine Creatinine 12/10/19 12/10/19 12/10/19 04:14 04:14 12:00 WBC 13.3 H RBC 3.34 L Hgb 9.6 L Hct 30.4 L MCHC RDW 15.4 H MCV MCH Lymph % (Auto) [place] % (Auto) [place] # Eos # Lymph # (Auto) [place] # (Auto) Eos # (Auto) Seg Neutrophils % Seg Neuts % (Manual) 75.0 H Baso # (Auto) Lymphocytes % (Manual) 13.0 L Monocytes % (Manual) 8.0 H Eosinophils % (Manual) Basophils % (Manual) 2.0 H Seg Neutrophils # Seg Neutrophils # Man 10.0 H Lymphocytes # (Manual) Monocytes # (Manual) 1.1 H Eosinophils # (Manual) Nucleated RBC % Basophils # (Manual) 0.3 H PT INR APTT Heparin Anti-Xa Level ABG pH POC ABG pO2 ABG pO2 ABG HCO3 ABG O2 Saturation ABG Base Excess POC ABG pCO2 ABG Hemoglobin ABG Oxyhemoglobin ABG Glucose Oxyhemoglobin Sodium 147 H Potassium Chloride 108.3 H Carbon Dioxide BUN 21 H Creatinine 0.6 L Glucose 104 H POC Glucose 133 H Lactic Acid Calcium Phosphorus Magnesium AST ALT Lactate Dehydrogenase Total Bilirubin Direct Bilirubin CK-MB (CK-2) C-Reactive Protein NT-Pro-B Natriuret Pep Total Protein Albumin Arterial Blood Glucose Urine WBC (Auto) Urine Creatinine 12/10/19 12/10/19 12/11/19 18:44 21:20 00:08 WBC 14.9 H RBC 3.36 L Hgb 9.6 L Hct 30.5 L MCHC RDW 15.4 H MCV MCH Lymph % (Auto) [place] % (Auto) [place] # Eos # Lymph # (Auto) [place] # (Auto) Eos # (Auto) Seg Neutrophils % Seg Neuts % (Manual) Baso # (Auto) Lymphocytes % (Manual) Monocytes % (Manual) Eosinophils % (Manual) Basophils % (Manual) Seg Neutrophils # Seg Neutrophils # Man Lymphocytes # (Manual) Monocytes # (Manual) Eosinophils # (Manual) Nucleated RBC % Basophils # (Manual) PT INR APTT Heparin Anti-Xa Level ABG pH POC ABG pO2 ABG pO2 ABG HCO3 ABG O2 Saturation ABG Base Excess POC ABG pCO2 ABG Hemoglobin ABG Oxyhemoglobin ABG Glucose Oxyhemoglobin Sodium Potassium Chloride Carbon Dioxide BUN Creatinine Glucose POC Glucose 119 H 134 H Lactic Acid Calcium Phosphorus Magnesium AST ALT Lactate Dehydrogenase Total Bilirubin Direct Bilirubin CK-MB (CK-2) C-Reactive Protein NT-Pro-B Natriuret Pep Total Protein Albumin Arterial Blood Glucose Urine WBC (Auto) Urine Creatinine 12/11/19 12/11/19 12/11/19 03:54 07:28 08:36 WBC 11.9 H RBC 3.25 L Hgb 9.6 L Hct 29.2 L MCHC RDW 15.7 H MCV MCH Lymph % (Auto) [place] % (Auto) [place] # Eos # Lymph # (Auto) [place] # (Auto) Eos # (Auto) Seg Neutrophils % Seg Neuts % (Manual) Baso # (Auto) Lymphocytes % (Manual) Monocytes % (Manual) Eosinophils % (Manual) Basophils % (Manual) Seg Neutrophils # Seg Neutrophils # Man Lymphocytes # (Manual) Monocytes # (Manual) Eosinophils # (Manual) Nucleated RBC % Basophils # (Manual) PT INR APTT Heparin Anti-Xa Level 0.10 L 0.16 L ABG pH POC ABG pO2 ABG pO2 ABG HCO3 ABG O2 Saturation ABG Base Excess POC ABG pCO2 ABG Hemoglobin ABG Oxyhemoglobin ABG Glucose Oxyhemoglobin Sodium Potassium Chloride Carbon Dioxide BUN Creatinine Glucose POC Glucose Lactic Acid Calcium Phosphorus Magnesium AST ALT Lactate Dehydrogenase Total Bilirubin Direct Bilirubin CK-MB (CK-2) C-Reactive Protein NT-Pro-B Natriuret Pep Total Protein Albumin Arterial Blood Glucose Urine WBC (Auto) Urine Creatinine 12/11/19 12/11/19 12/11/19 08:36 11:45 17:15 WBC RBC Hgb Hct MCHC RDW MCV MCH Lymph % (Auto) [place] % (Auto) [place] # Eos # Lymph # (Auto) [place] # (Auto) Eos # (Auto) Seg Neutrophils % Seg Neuts % (Manual) Baso # (Auto) Lymphocytes % (Manual) Monocytes % (Manual) Eosinophils % (Manual) Basophils % (Manual) Seg Neutrophils # Seg Neutrophils # Man Lymphocytes # (Manual) Monocytes # (Manual) Eosinophils # (Manual) Nucleated RBC % Basophils # (Manual) PT INR APTT Heparin Anti-Xa Level ABG pH POC ABG pO2 ABG pO2 ABG HCO3 ABG O2 Saturation ABG Base Excess POC ABG pCO2 ABG Hemoglobin ABG Oxyhemoglobin ABG Glucose Oxyhemoglobin Sodium Potassium Chloride Carbon Dioxide BUN Creatinine 0.5 L Glucose 128 H POC Glucose 136 H 109 H Lactic Acid Calcium Phosphorus Magnesium AST ALT Lactate Dehydrogenase Total Bilirubin Direct Bilirubin CK-MB (CK-2) C-Reactive Protein NT-Pro-B Natriuret Pep Total Protein Albumin Arterial Blood Glucose Urine WBC (Auto) Urine Creatinine 12/12/19 12/12/19 12/12/19 00:03 05:53 05:53 WBC RBC Hgb 8.8 L Hct 27.6 L MCHC RDW MCV MCH Lymph % (Auto) [place] % (Auto) [place] # Eos # Lymph # (Auto) [place] # (Auto) Eos # (Auto) Seg Neutrophils % Seg Neuts % (Manual) Baso # (Auto) Lymphocytes % (Manual) Monocytes % (Manual) Eosinophils % (Manual) Basophils % (Manual) Seg Neutrophils # Seg Neutrophils # Man Lymphocytes # (Manual) Monocytes # (Manual) Eosinophils # (Manual) Nucleated RBC % Basophils # (Manual) PT INR APTT Heparin Anti-Xa Level 0.22 L ABG pH POC ABG pO2 ABG pO2 ABG HCO3 ABG O2 Saturation ABG Base Excess POC ABG pCO2 ABG Hemoglobin ABG Oxyhemoglobin ABG Glucose Oxyhemoglobin Sodium Potassium Chloride Carbon Dioxide BUN Creatinine Glucose POC Glucose 116 H Lactic Acid Calcium Phosphorus Magnesium AST ALT Lactate Dehydrogenase Total Bilirubin Direct Bilirubin CK-MB (CK-2) C-Reactive Protein NT-Pro-B Natriuret Pep Total Protein Albumin Arterial Blood Glucose Urine WBC (Auto) Urine Creatinine 12/12/19 12/12/19 12/12/19 09:38 12:18 17:44 WBC RBC Hgb Hct MCHC RDW MCV MCH Lymph % (Auto) [place] % (Auto) [place] # Eos # Lymph # (Auto) [place] # (Auto) Eos # (Auto) Seg Neutrophils % Seg Neuts % (Manual) Baso # (Auto) Lymphocytes % (Manual) Monocytes % (Manual) Eosinophils % (Manual) Basophils % (Manual) Seg Neutrophils # Seg Neutrophils # Man Lymphocytes # (Manual) Monocytes # (Manual) Eosinophils # (Manual) Nucleated RBC % Basophils # (Manual) PT INR APTT Heparin Anti-Xa Level ABG pH POC ABG pO2 ABG pO2 ABG HCO3 ABG O2 Saturation ABG Base Excess POC ABG pCO2 ABG Hemoglobin ABG Oxyhemoglobin ABG Glucose Oxyhemoglobin Sodium Potassium Chloride Carbon Dioxide BUN Creatinine Glucose POC Glucose 115 H 146 H 146 H Lactic Acid Calcium Phosphorus Magnesium AST ALT Lactate Dehydrogenase Total Bilirubin Direct Bilirubin CK-MB (CK-2) C-Reactive Protein NT-Pro-B Natriuret Pep Total Protein Albumin Arterial Blood Glucose Urine WBC (Auto) Urine Creatinine 12/12/19 12/13/19 12/13/19 23:33 05:32 05:32 WBC 13.1 H RBC 3.27 L Hgb 9.5 L Hct 29.3 L MCHC RDW 15.6 H MCV MCH Lymph % (Auto) [place] % (Auto) [place] # Eos # Lymph # (Auto) [place] # (Auto) Eos # (Auto) Seg Neutrophils % Seg Neuts % (Manual) 74.0 H Baso # (Auto) Lymphocytes % (Manual) 8.0 L Monocytes % (Manual) 9.0 H Eosinophils % (Manual) 5.0 H Basophils % (Manual) Seg Neutrophils # Seg Neutrophils # Man 9.7 H Lymphocytes # (Manual) 1.0 L Monocytes # (Manual) 1.2 H Eosinophils # (Manual) 0.7 H Nucleated RBC % Basophils # (Manual) PT INR APTT Heparin Anti-Xa Level 0.20 L ABG pH POC ABG pO2 ABG pO2 ABG HCO3 ABG O2 Saturation ABG Base Excess POC ABG pCO2 ABG Hemoglobin ABG Oxyhemoglobin ABG Glucose Oxyhemoglobin Sodium Potassium Chloride Carbon Dioxide BUN Creatinine Glucose POC Glucose 126 H Lactic Acid Calcium Phosphorus Magnesium AST ALT Lactate Dehydrogenase Total Bilirubin Direct Bilirubin CK-MB (CK-2) C-Reactive Protein NT-Pro-B Natriuret Pep Total Protein Albumin Arterial Blood Glucose Urine WBC (Auto) Urine Creatinine 12/13/19 12/13/19 12/13/19 05:32 05:46 11:57 WBC RBC Hgb Hct MCHC RDW MCV MCH Lymph % (Auto) [place] % (Auto) [place] # Eos # Lymph # (Auto) [place] # (Auto) Eos # (Auto) Seg Neutrophils % Seg Neuts % (Manual) Baso # (Auto) Lymphocytes % (Manual) Monocytes % (Manual) Eosinophils % (Manual) Basophils % (Manual) Seg Neutrophils # Seg Neutrophils # Man Lymphocytes # (Manual) Monocytes # (Manual) Eosinophils # (Manual) Nucleated RBC % Basophils # (Manual) PT INR APTT Heparin Anti-Xa Level ABG pH POC ABG pO2 ABG pO2 ABG HCO3 ABG O2 Saturation ABG Base Excess POC ABG pCO2 ABG Hemoglobin ABG Oxyhemoglobin ABG Glucose Oxyhemoglobin Sodium Potassium Chloride Carbon Dioxide 31 H BUN Creatinine 0.6 L Glucose 114 H POC Glucose 118 H 133 H Lactic Acid Calcium Phosphorus Magnesium AST ALT Lactate Dehydrogenase Total Bilirubin Direct Bilirubin CK-MB (CK-2) C-Reactive Protein NT-Pro-B Natriuret Pep Total Protein Albumin Arterial Blood Glucose Urine WBC (Auto) Urine Creatinine 12/13/19 12/13/19 12/14/19 17:44 23:46 05:32 WBC RBC Hgb Hct MCHC RDW MCV MCH Lymph % (Auto) [place] % (Auto) [place] # Eos # Lymph # (Auto) [place] # (Auto) Eos # (Auto) Seg Neutrophils % Seg Neuts % (Manual) Baso # (Auto) Lymphocytes % (Manual) Monocytes % (Manual) Eosinophils % (Manual) Basophils % (Manual) Seg Neutrophils # Seg Neutrophils # Man Lymphocytes # (Manual) Monocytes # (Manual) Eosinophils # (Manual) Nucleated RBC % Basophils # (Manual) PT INR APTT Heparin Anti-Xa Level ABG pH POC ABG pO2 ABG pO2 ABG HCO3 ABG O2 Saturation ABG Base Excess POC ABG pCO2 ABG Hemoglobin ABG Oxyhemoglobin ABG Glucose Oxyhemoglobin Sodium Potassium Chloride Carbon Dioxide BUN Creatinine Glucose POC Glucose 161 H 126 H 139 H Lactic Acid Calcium Phosphorus Magnesium AST ALT Lactate Dehydrogenase Total Bilirubin Direct Bilirubin CK-MB (CK-2) C-Reactive Protein NT-Pro-B Natriuret Pep Total Protein Albumin Arterial Blood Glucose Urine WBC (Auto) Urine Creatinine 12/14/19 12/14/19 12/14/19 06:03 06:03 09:37 WBC RBC Hgb 9.6 L Hct 30.4 L MCHC RDW MCV MCH Lymph % (Auto) [place] % (Auto) [place] # Eos # Lymph # (Auto) [place] # (Auto) Eos # (Auto) Seg Neutrophils % Seg Neuts % (Manual) Baso # (Auto) Lymphocytes % (Manual) Monocytes % (Manual) Eosinophils % (Manual) Basophils % (Manual) Seg Neutrophils # Seg Neutrophils # Man Lymphocytes # (Manual) Monocytes # (Manual) Eosinophils # (Manual) Nucleated RBC % Basophils # (Manual) PT INR APTT Heparin Anti-Xa Level 0.24 L ABG pH POC ABG pO2 ABG pO2 ABG HCO3 ABG O2 Saturation ABG Base Excess POC ABG pCO2 ABG Hemoglobin ABG Oxyhemoglobin ABG Glucose Oxyhemoglobin Sodium Potassium Chloride Carbon Dioxide BUN Creatinine 0.6 L Glucose 162 H POC Glucose Lactic Acid Calcium Phosphorus Magnesium AST 71 H ALT 118 H Lactate Dehydrogenase Total Bilirubin Direct Bilirubin CK-MB (CK-2) C-Reactive Protein NT-Pro-B Natriuret Pep Total Protein 6.2 L Albumin 2.3 L Arterial Blood Glucose Urine WBC (Auto) Urine Creatinine 12/14/19 12/14/19 12/15/19 12:06 18:18 00:19 WBC RBC Hgb Hct MCHC RDW MCV MCH Lymph % (Auto) [place] % (Auto) [place] # Eos # Lymph # (Auto) [place] # (Auto) Eos # (Auto) Seg Neutrophils % Seg Neuts % (Manual) Baso # (Auto) Lymphocytes % (Manual) Monocytes % (Manual) Eosinophils % (Manual) Basophils % (Manual) Seg Neutrophils # Seg Neutrophils # Man Lymphocytes # (Manual) Monocytes # (Manual) Eosinophils # (Manual) Nucleated RBC % Basophils # (Manual) PT INR APTT Heparin Anti-Xa Level ABG pH POC ABG pO2 ABG pO2 ABG HCO3 ABG O2 Saturation ABG Base Excess POC ABG pCO2 ABG Hemoglobin ABG Oxyhemoglobin ABG Glucose Oxyhemoglobin Sodium Potassium Chloride Carbon Dioxide BUN Creatinine Glucose POC Glucose 147 H 166 H 123 H Lactic Acid Calcium Phosphorus Magnesium AST ALT Lactate Dehydrogenase Total Bilirubin Direct Bilirubin CK-MB (CK-2) C-Reactive Protein NT-Pro-B Natriuret Pep Total Protein Albumin Arterial Blood Glucose Urine WBC (Auto) Urine Creatinine 12/15/19 12/15/19 12/15/19 05:28 05:29 05:29 WBC 14.9 H RBC 3.19 L Hgb 9.1 L Hct 28.7 L MCHC RDW 16.0 H MCV MCH Lymph % (Auto) [place] % (Auto) [place] # Eos # Lymph # (Auto) [place] # (Auto) Eos # (Auto) Seg Neutrophils % Seg Neuts % (Manual) Baso # (Auto) Lymphocytes % (Manual) Monocytes % (Manual) Eosinophils % (Manual) Basophils % (Manual) Seg Neutrophils # Seg Neutrophils # Man Lymphocytes # (Manual) Monocytes # (Manual) Eosinophils # (Manual) Nucleated RBC % Basophils # (Manual) PT INR APTT Heparin Anti-Xa Level 0.19 L ABG pH POC ABG pO2 ABG pO2 ABG HCO3 ABG O2 Saturation ABG Base Excess POC ABG pCO2 ABG Hemoglobin ABG Oxyhemoglobin ABG Glucose Oxyhemoglobin Sodium Potassium Chloride Carbon Dioxide BUN Creatinine 0.6 L Glucose 110 H POC Glucose Lactic Acid Calcium Phosphorus Magnesium AST ALT Lactate Dehydrogenase Total Bilirubin Direct Bilirubin CK-MB (CK-2) C-Reactive Protein NT-Pro-B Natriuret Pep Total Protein Albumin Arterial Blood Glucose Urine WBC (Auto) Urine Creatinine 12/15/19 12/15/19 12/15/19 05:53 11:50 17:26 WBC RBC Hgb Hct MCHC RDW MCV MCH Lymph % (Auto) [place] % (Auto) [place] # Eos # Lymph # (Auto) [place] # (Auto) Eos # (Auto) Seg Neutrophils % Seg Neuts % (Manual) Baso # (Auto) Lymphocytes % (Manual) Monocytes % (Manual) Eosinophils % (Manual) Basophils % (Manual) Seg Neutrophils # Seg Neutrophils # Man Lymphocytes # (Manual) Monocytes # (Manual) Eosinophils # (Manual) Nucleated RBC % Basophils # (Manual) PT INR APTT Heparin Anti-Xa Level ABG pH POC ABG pO2 ABG pO2 ABG HCO3 ABG O2 Saturation ABG Base Excess POC ABG pCO2 ABG Hemoglobin ABG Oxyhemoglobin ABG Glucose Oxyhemoglobin Sodium Potassium Chloride Carbon Dioxide BUN Creatinine Glucose POC Glucose 119 H 132 H 128 H Lactic Acid Calcium Phosphorus Magnesium AST ALT Lactate Dehydrogenase Total Bilirubin Direct Bilirubin CK-MB (CK-2) C-Reactive Protein NT-Pro-B Natriuret Pep Total Protein Albumin Arterial Blood Glucose Urine WBC (Auto) Urine Creatinine 12/15/19 12/16/19 12/16/19 23:11 05:30 05:46 WBC RBC Hgb 8.8 L Hct 27.9 L MCHC RDW MCV MCH Lymph % (Auto) [place] % (Auto) [place] # Eos # Lymph # (Auto) [place] # (Auto) Eos # (Auto) Seg Neutrophils % Seg Neuts % (Manual) Baso # (Auto) Lymphocytes % (Manual) Monocytes % (Manual) Eosinophils % (Manual) Basophils % (Manual) Seg Neutrophils # Seg Neutrophils # Man Lymphocytes # (Manual) Monocytes # (Manual) Eosinophils # (Manual) Nucleated RBC % Basophils # (Manual) PT INR APTT Heparin Anti-Xa Level ABG pH POC ABG pO2 ABG pO2 ABG HCO3 ABG O2 Saturation ABG Base Excess POC ABG pCO2 ABG Hemoglobin ABG Oxyhemoglobin ABG Glucose Oxyhemoglobin Sodium Potassium Chloride Carbon Dioxide BUN Creatinine Glucose POC Glucose 150 H 134 H Lactic Acid Calcium Phosphorus Magnesium AST ALT Lactate Dehydrogenase Total Bilirubin Direct Bilirubin CK-MB (CK-2) C-Reactive Protein NT-Pro-B Natriuret Pep Total Protein Albumin Arterial Blood Glucose Urine WBC (Auto) Urine Creatinine 12/16/19 12/16/19 12/16/19 05:46 05:46 11:44 WBC RBC Hgb Hct MCHC RDW MCV MCH Lymph % (Auto) [place] % (Auto) [place] # Eos # Lymph # (Auto) [place] # (Auto) Eos # (Auto) Seg Neutrophils % Seg Neuts % (Manual) Baso # (Auto) Lymphocytes % (Manual) Monocytes % (Manual) Eosinophils % (Manual) Basophils % (Manual) Seg Neutrophils # Seg Neutrophils # Man Lymphocytes # (Manual) Monocytes # (Manual) Eosinophils # (Manual) Nucleated RBC % Basophils # (Manual) PT INR APTT Heparin Anti-Xa Level 0.20 L ABG pH POC ABG pO2 ABG pO2 ABG HCO3 ABG O2 Saturation ABG Base Excess POC ABG pCO2 ABG Hemoglobin ABG Oxyhemoglobin ABG Glucose Oxyhemoglobin Sodium Potassium Chloride Carbon Dioxide 31 H BUN Creatinine 0.5 L Glucose 147 H POC Glucose 164 H Lactic Acid Calcium Phosphorus Magnesium AST ALT Lactate Dehydrogenase Total Bilirubin Direct Bilirubin CK-MB (CK-2) C-Reactive Protein NT-Pro-B Natriuret Pep Total Protein Albumin Arterial Blood Glucose Urine WBC (Auto) Urine Creatinine 12/16/19 12/16/19 12/17/19 17:17 23:49 05:30 WBC 13.9 H RBC 3.27 L Hgb 9.4 L Hct 29.2 L MCHC RDW 16.0 H MCV MCH Lymph % (Auto) [place] % (Auto) 8.8 H [place] # Eos # Lymph # (Auto) [place] # (Auto) 1.2 H Eos # (Auto) 0.5 H Seg Neutrophils % 70.5 H Seg Neuts % (Manual) Baso # (Auto) 0.2 H Lymphocytes % (Manual) Monocytes % (Manual) Eosinophils % (Manual) Basophils % (Manual) Seg Neutrophils # 9.8 H Seg Neutrophils # Man Lymphocytes # (Manual) Monocytes # (Manual) Eosinophils # (Manual) Nucleated RBC % Basophils # (Manual) PT INR APTT Heparin Anti-Xa Level ABG pH POC ABG pO2 ABG pO2 ABG HCO3 ABG O2 Saturation ABG Base Excess POC ABG pCO2 ABG Hemoglobin ABG Oxyhemoglobin ABG Glucose Oxyhemoglobin Sodium Potassium Chloride Carbon Dioxide BUN Creatinine Glucose POC Glucose 162 H 144 H Lactic Acid Calcium Phosphorus Magnesium AST ALT Lactate Dehydrogenase Total Bilirubin Direct Bilirubin CK-MB (CK-2) C-Reactive Protein NT-Pro-B Natriuret Pep Total Protein Albumin Arterial Blood Glucose Urine WBC (Auto) Urine Creatinine 12/17/19 12/17/19 12/17/19 05:30 06:06 11:50 WBC RBC Hgb Hct MCHC RDW MCV MCH Lymph % (Auto) [place] % (Auto) [place] # Eos # Lymph # (Auto) [place] # (Auto) Eos # (Auto) Seg Neutrophils % Seg Neuts % (Manual) Baso # (Auto) Lymphocytes % (Manual) Monocytes % (Manual) Eosinophils % (Manual) Basophils % (Manual) Seg Neutrophils # Seg Neutrophils # Man Lymphocytes # (Manual) Monocytes # (Manual) Eosinophils # (Manual) Nucleated RBC % Basophils # (Manual) PT INR APTT Heparin Anti-Xa Level ABG pH POC ABG pO2 ABG pO2 ABG HCO3 ABG O2 Saturation ABG Base Excess POC ABG pCO2 ABG Hemoglobin ABG Oxyhemoglobin ABG Glucose Oxyhemoglobin Sodium Potassium Chloride 97.4 L Carbon Dioxide 32 H BUN Creatinine 0.5 L Glucose 135 H POC Glucose 151 H 140 H Lactic Acid Calcium Phosphorus Magnesium AST ALT Lactate Dehydrogenase Total Bilirubin Direct Bilirubin CK-MB (CK-2) C-Reactive Protein NT-Pro-B Natriuret Pep Total Protein Albumin Arterial Blood Glucose Urine WBC (Auto) Urine Creatinine 12/17/19 12/17/19 12/18/19 17:50 23:46 05:17 WBC RBC Hgb 8.8 L Hct 28.0 L MCHC RDW MCV MCH Lymph % (Auto) [place] % (Auto) [place] # Eos # Lymph # (Auto) [place] # (Auto) Eos # (Auto) Seg Neutrophils % Seg Neuts % (Manual) Baso # (Auto) Lymphocytes % (Manual) Monocytes % (Manual) Eosinophils % (Manual) Basophils % (Manual) Seg Neutrophils # Seg Neutrophils # Man Lymphocytes # (Manual) Monocytes # (Manual) Eosinophils # (Manual) Nucleated RBC % Basophils # (Manual) PT INR APTT Heparin Anti-Xa Level ABG pH POC ABG pO2 ABG pO2 ABG HCO3 ABG O2 Saturation ABG Base Excess POC ABG pCO2 ABG Hemoglobin ABG Oxyhemoglobin ABG Glucose Oxyhemoglobin Sodium Potassium Chloride Carbon Dioxide BUN Creatinine Glucose POC Glucose 158 H 150 H Lactic Acid Calcium Phosphorus Magnesium AST ALT Lactate Dehydrogenase Total Bilirubin Direct Bilirubin CK-MB (CK-2) C-Reactive Protein NT-Pro-B Natriuret Pep Total Protein Albumin Arterial Blood Glucose Urine WBC (Auto) Urine Creatinine 12/18/19 12/18/19 12/18/19 05:17 05:49 11:12 WBC RBC Hgb Hct MCHC RDW MCV MCH Lymph % (Auto) [place] % (Auto) [place] # Eos # Lymph # (Auto) [place] # (Auto) Eos # (Auto) Seg Neutrophils % Seg Neuts % (Manual) Baso # (Auto) Lymphocytes % (Manual) Monocytes % (Manual) Eosinophils % (Manual) Basophils % (Manual) Seg Neutrophils # Seg Neutrophils # Man Lymphocytes # (Manual) Monocytes # (Manual) Eosinophils # (Manual) Nucleated RBC % Basophils # (Manual) PT INR APTT Heparin Anti-Xa Level 0.16 L ABG pH POC ABG pO2 ABG pO2 ABG HCO3 ABG O2 Saturation ABG Base Excess POC ABG pCO2 ABG Hemoglobin ABG Oxyhemoglobin ABG Glucose Oxyhemoglobin Sodium Potassium Chloride Carbon Dioxide BUN Creatinine Glucose POC Glucose 127 H 191 H Lactic Acid Calcium Phosphorus Magnesium AST ALT Lactate Dehydrogenase Total Bilirubin Direct Bilirubin CK-MB (CK-2) C-Reactive Protein NT-Pro-B Natriuret Pep Total Protein Albumin Arterial Blood Glucose Urine WBC (Auto) Urine Creatinine 12/18/19 12/18/19 12/19/19 17:03 20:16 00:08 WBC RBC Hgb Hct MCHC RDW MCV MCH Lymph % (Auto) [place] % (Auto) [place] # Eos # Lymph # (Auto) [place] # (Auto) Eos # (Auto) Seg Neutrophils % Seg Neuts % (Manual) Baso # (Auto) Lymphocytes % (Manual) Monocytes % (Manual) Eosinophils % (Manual) Basophils % (Manual) Seg Neutrophils # Seg Neutrophils # Man Lymphocytes # (Manual) Monocytes # (Manual) Eosinophils # (Manual) Nucleated RBC % Basophils # (Manual) PT INR APTT Heparin Anti-Xa Level ABG pH POC ABG pO2 ABG pO2 ABG HCO3 ABG O2 Saturation ABG Base Excess POC ABG pCO2 ABG Hemoglobin ABG Oxyhemoglobin ABG Glucose Oxyhemoglobin Sodium Potassium Chloride Carbon Dioxide BUN Creatinine Glucose POC Glucose 133 H 128 H 129 H Lactic Acid Calcium Phosphorus Magnesium AST ALT Lactate Dehydrogenase Total Bilirubin Direct Bilirubin CK-MB (CK-2) C-Reactive Protein NT-Pro-B Natriuret Pep Total Protein Albumin Arterial Blood Glucose Urine WBC (Auto) Urine Creatinine 12/19/19 12/19/19 12/19/19 04:45 04:45 05:35 WBC RBC Hgb Hct MCHC RDW MCV MCH Lymph % (Auto) [place] % (Auto) [place] # Eos # Lymph # (Auto) [place] # (Auto) Eos # (Auto) Seg Neutrophils % Seg Neuts % (Manual) Baso # (Auto) Lymphocytes % (Manual) Monocytes % (Manual) Eosinophils % (Manual) Basophils % (Manual) Seg Neutrophils # Seg Neutrophils # Man Lymphocytes # (Manual) Monocytes # (Manual) Eosinophils # (Manual) Nucleated RBC % Basophils # (Manual) PT INR APTT Heparin Anti-Xa Level 0.17 L ABG pH POC ABG pO2 ABG pO2 ABG HCO3 ABG O2 Saturation ABG Base Excess POC ABG pCO2 ABG Hemoglobin ABG Oxyhemoglobin ABG Glucose Oxyhemoglobin Sodium Potassium Chloride Carbon Dioxide BUN Creatinine Glucose POC Glucose 120 H Lactic Acid Calcium Phosphorus Magnesium AST ALT Lactate Dehydrogenase 228 H Total Bilirubin Direct Bilirubin CK-MB (CK-2) C-Reactive Protein NT-Pro-B Natriuret Pep Total Protein Albumin Arterial Blood Glucose Urine WBC (Auto) Urine Creatinine 12/19/19 12/19/19 12/19/19 09:20 11:32 11:32 WBC 14.6 H RBC 3.08 L Hgb 9.0 L Hct 26.8 L MCHC RDW 15.9 H MCV MCH Lymph % (Auto) [place] % (Auto) [place] # Eos # Lymph # (Auto) [place] # (Auto) Eos # (Auto) Seg Neutrophils % Seg Neuts % (Manual) 82.0 H Baso # (Auto) Lymphocytes % (Manual) 10.0 L Monocytes % (Manual) Eosinophils % (Manual) Basophils % (Manual) Seg Neutrophils # Seg Neutrophils # Man 12.0 H Lymphocytes # (Manual) Monocytes # (Manual) 0.9 H Eosinophils # (Manual) Nucleated RBC % 1.0 H Basophils # (Manual) PT INR APTT Heparin Anti-Xa Level ABG pH 7.451 H POC ABG pO2 ABG pO2 62.6 L ABG HCO3 33.2 H ABG O2 Saturation 93.8 L ABG Base Excess 8.3 H POC ABG pCO2 ABG Hemoglobin 8.3 L ABG Oxyhemoglobin ABG Glucose Oxyhemoglobin 91.9 L Sodium Potassium Chloride 95.0 L Carbon Dioxide 33 H BUN 22 H Creatinine 0.6 L Glucose 150 H POC Glucose Lactic Acid Calcium Phosphorus Magnesium AST ALT Lactate Dehydrogenase Total Bilirubin Direct Bilirubin CK-MB (CK-2) C-Reactive Protein NT-Pro-B Natriuret Pep Total Protein 6.2 L Albumin 2.4 L Arterial Blood Glucose Urine WBC (Auto) Urine Creatinine 12/19/19 12/19/19 12/20/19 11:56 18:17 00:09 WBC RBC Hgb Hct MCHC RDW MCV MCH Lymph % (Auto) [place] % (Auto) [place] # Eos # Lymph # (Auto) [place] # (Auto) Eos # (Auto) Seg Neutrophils % Seg Neuts % (Manual) Baso # (Auto) Lymphocytes % (Manual) Monocytes % (Manual) Eosinophils % (Manual) Basophils % (Manual) Seg Neutrophils # Seg Neutrophils # Man Lymphocytes # (Manual) Monocytes # (Manual) Eosinophils # (Manual) Nucleated RBC % Basophils # (Manual) PT INR APTT Heparin Anti-Xa Level ABG pH POC ABG pO2 ABG pO2 ABG HCO3 ABG O2 Saturation ABG Base Excess POC ABG pCO2 ABG Hemoglobin ABG Oxyhemoglobin ABG Glucose Oxyhemoglobin Sodium Potassium Chloride Carbon Dioxide BUN Creatinine Glucose POC Glucose 156 H 156 H 155 H Lactic Acid Calcium Phosphorus Magnesium AST ALT Lactate Dehydrogenase Total Bilirubin Direct Bilirubin CK-MB (CK-2) C-Reactive Protein NT-Pro-B Natriuret Pep Total Protein Albumin Arterial Blood Glucose Urine WBC (Auto) Urine Creatinine 12/20/19 12/20/19 12/20/19 05:26 06:02 18:17 WBC RBC Hgb Hct MCHC RDW MCV MCH Lymph % (Auto) [place] % (Auto) [place] # Eos # Lymph # (Auto) [place] # (Auto) Eos # (Auto) Seg Neutrophils % Seg Neuts % (Manual) Baso # (Auto) Lymphocytes % (Manual) Monocytes % (Manual) Eosinophils % (Manual) Basophils % (Manual) Seg Neutrophils # Seg Neutrophils # Man Lymphocytes # (Manual) Monocytes # (Manual) Eosinophils # (Manual) Nucleated RBC % Basophils # (Manual) PT INR APTT Heparin Anti-Xa Level 0.19 L ABG pH POC ABG pO2 ABG pO2 ABG HCO3 ABG O2 Saturation ABG Base Excess POC ABG pCO2 ABG Hemoglobin ABG Oxyhemoglobin ABG Glucose Oxyhemoglobin Sodium Potassium Chloride Carbon Dioxide BUN Creatinine Glucose POC Glucose 137 H 128 H Lactic Acid Calcium Phosphorus Magnesium AST ALT Lactate Dehydrogenase Total Bilirubin Direct Bilirubin CK-MB (CK-2) C-Reactive Protein NT-Pro-B Natriuret Pep Total Protein Albumin Arterial Blood Glucose Urine WBC (Auto) Urine Creatinine 12/20/19 12/21/19 12/21/19 23:34 05:31 05:31 WBC 12.7 H RBC 3.09 L Hgb 8.9 L Hct 27.4 L MCHC RDW 15.8 H MCV MCH Lymph % (Auto) 12.1 L [place] % (Auto) 7.8 H [place] # Eos # Lymph # (Auto) [place] # (Auto) 1.0 H Eos # (Auto) Seg Neutrophils % 77.1 H Seg Neuts % (Manual) Baso # (Auto) Lymphocytes % (Manual) Monocytes % (Manual) Eosinophils % (Manual) Basophils % (Manual) Seg Neutrophils # 9.8 H Seg Neutrophils # Man Lymphocytes # (Manual) Monocytes # (Manual) Eosinophils # (Manual) Nucleated RBC % Basophils # (Manual) PT INR APTT Heparin Anti-Xa Level ABG pH POC ABG pO2 ABG pO2 ABG HCO3 ABG O2 Saturation ABG Base Excess POC ABG pCO2 ABG Hemoglobin ABG Oxyhemoglobin ABG Glucose Oxyhemoglobin Sodium Potassium Chloride 96.9 L Carbon Dioxide 37 H BUN 27 H Creatinine 0.7 L Glucose 140 H POC Glucose 145 H Lactic Acid Calcium Phosphorus Magnesium AST ALT Lactate Dehydrogenase Total Bilirubin Direct Bilirubin CK-MB (CK-2) C-Reactive Protein NT-Pro-B Natriuret Pep Total Protein Albumin Arterial Blood Glucose Urine WBC (Auto) Urine Creatinine 12/21/19 12/21/19 12/21/19 05:38 10:13 11:51 WBC RBC Hgb Hct MCHC RDW MCV MCH Lymph % (Auto) [place] % (Auto) [place] # Eos # Lymph # (Auto) [place] # (Auto) Eos # (Auto) Seg Neutrophils % Seg Neuts % (Manual) Baso # (Auto) Lymphocytes % (Manual) Monocytes % (Manual) Eosinophils % (Manual) Basophils % (Manual) Seg Neutrophils # Seg Neutrophils # Man Lymphocytes # (Manual) Monocytes # (Manual) Eosinophils # (Manual) Nucleated RBC % Basophils # (Manual) PT INR APTT 23.9 L Heparin Anti-Xa Level < 0.10 L ABG pH POC ABG pO2 ABG pO2 ABG HCO3 ABG O2 Saturation ABG Base Excess POC ABG pCO2 ABG Hemoglobin ABG Oxyhemoglobin ABG Glucose Oxyhemoglobin Sodium Potassium Chloride Carbon Dioxide BUN Creatinine Glucose POC Glucose 151 H 145 H Lactic Acid Calcium Phosphorus Magnesium AST ALT Lactate Dehydrogenase Total Bilirubin Direct Bilirubin CK-MB (CK-2) C-Reactive Protein NT-Pro-B Natriuret Pep Total Protein Albumin Arterial Blood Glucose Urine WBC (Auto) Urine Creatinine 12/21/19 12/22/19 12/22/19 17:16 00:01 01:33 WBC RBC Hgb Hct MCHC RDW MCV MCH Lymph % (Auto) [place] % (Auto) [place] # Eos # Lymph # (Auto) [place] # (Auto) Eos # (Auto) Seg Neutrophils % Seg Neuts % (Manual) Baso # (Auto) Lymphocytes % (Manual) Monocytes % (Manual) Eosinophils % (Manual) Basophils % (Manual) Seg Neutrophils # Seg Neutrophils # Man Lymphocytes # (Manual) Monocytes # (Manual) Eosinophils # (Manual) Nucleated RBC % Basophils # (Manual) PT INR APTT Heparin Anti-Xa Level 0.10 L ABG pH POC ABG pO2 ABG pO2 ABG HCO3 ABG O2 Saturation ABG Base Excess POC ABG pCO2 ABG Hemoglobin ABG Oxyhemoglobin ABG Glucose Oxyhemoglobin Sodium Potassium Chloride Carbon Dioxide BUN Creatinine Glucose POC Glucose 167 H 179 H Lactic Acid Calcium Phosphorus Magnesium AST ALT Lactate Dehydrogenase Total Bilirubin Direct Bilirubin CK-MB (CK-2) C-Reactive Protein NT-Pro-B Natriuret Pep Total Protein Albumin Arterial Blood Glucose Urine WBC (Auto) Urine Creatinine 12/22/19 12/22/19 12/22/19 03:22 05:10 05:10 WBC 13.8 H RBC 3.20 L Hgb 8.9 L Hct 28.1 L MCHC RDW 15.9 H MCV MCH Lymph % (Auto) [place] % (Auto) [place] # Eos # Lymph # (Auto) [place] # (Auto) Eos # (Auto) Seg Neutrophils % Seg Neuts % (Manual) Baso # (Auto) Lymphocytes % (Manual) Monocytes % (Manual) Eosinophils % (Manual) Basophils % (Manual) Seg Neutrophils # Seg Neutrophils # Man Lymphocytes # (Manual) Monocytes # (Manual) Eosinophils # (Manual) Nucleated RBC % Basophils # (Manual) PT INR APTT Heparin Anti-Xa Level ABG pH POC ABG pO2 52.3 L ABG pO2 ABG HCO3 ABG O2 Saturation ABG Base Excess POC ABG pCO2 52.9 H ABG Hemoglobin 10.7 L ABG Oxyhemoglobin 84 L ABG Glucose Oxyhemoglobin Sodium Potassium Chloride 96.6 L Carbon Dioxide BUN 25 H Creatinine 0.7 L Glucose 129 H POC Glucose Lactic Acid Calcium Phosphorus Magnesium AST ALT Lactate Dehydrogenase Total Bilirubin Direct Bilirubin CK-MB (CK-2) C-Reactive Protein NT-Pro-B Natriuret Pep Total Protein Albumin Arterial Blood Glucose Urine WBC (Auto) Urine Creatinine 12/22/19 12/22/19 12/22/19 05:18 12:32 12:43 WBC RBC Hgb Hct MCHC RDW MCV MCH Lymph % (Auto) [place] % (Auto) [place] # Eos # Lymph # (Auto) [place] # (Auto) Eos # (Auto) Seg Neutrophils % Seg Neuts % (Manual) Baso # (Auto) Lymphocytes % (Manual) Monocytes % (Manual) Eosinophils % (Manual) Basophils % (Manual) Seg Neutrophils # Seg Neutrophils # Man Lymphocytes # (Manual) Monocytes # (Manual) Eosinophils # (Manual) Nucleated RBC % Basophils # (Manual) PT INR APTT Heparin Anti-Xa Level 0.18 L ABG pH POC ABG pO2 ABG pO2 ABG HCO3 ABG O2 Saturation ABG Base Excess POC ABG pCO2 ABG Hemoglobin ABG Oxyhemoglobin ABG Glucose Oxyhemoglobin Sodium Potassium Chloride Carbon Dioxide BUN Creatinine Glucose POC Glucose 131 H 208 H Lactic Acid Calcium Phosphorus Magnesium AST ALT Lactate Dehydrogenase Total Bilirubin Direct Bilirubin CK-MB (CK-2) C-Reactive Protein NT-Pro-B Natriuret Pep Total Protein Albumin Arterial Blood Glucose Urine WBC (Auto) Urine Creatinine 12/22/19 12/22/19 12/23/19 17:44 23:20 03:51 WBC 15.2 H RBC 3.43 L Hgb 9.6 L Hct 30.3 L MCHC RDW 15.9 H MCV MCH Lymph % (Auto) [place] % (Auto) [place] # Eos # Lymph # (Auto) [place] # (Auto) Eos # (Auto) Seg Neutrophils % Seg Neuts % (Manual) Baso # (Auto) Lymphocytes % (Manual) Monocytes % (Manual) Eosinophils % (Manual) Basophils % (Manual) Seg Neutrophils # Seg Neutrophils # Man Lymphocytes # (Manual) Monocytes # (Manual) Eosinophils # (Manual) Nucleated RBC % Basophils # (Manual) PT INR APTT Heparin Anti-Xa Level ABG pH POC ABG pO2 ABG pO2 ABG HCO3 ABG O2 Saturation ABG Base Excess POC ABG pCO2 ABG Hemoglobin ABG Oxyhemoglobin ABG Glucose Oxyhemoglobin Sodium Potassium Chloride Carbon Dioxide BUN Creatinine Glucose POC Glucose 209 H 119 H Lactic Acid Calcium Phosphorus Magnesium AST ALT Lactate Dehydrogenase Total Bilirubin Direct Bilirubin CK-MB (CK-2) C-Reactive Protein NT-Pro-B Natriuret Pep Total Protein Albumin Arterial Blood Glucose Urine WBC (Auto) Urine Creatinine 12/23/19 12/23/19 12/23/19 03:51 05:31 12:09 WBC RBC Hgb Hct MCHC RDW MCV MCH Lymph % (Auto) [place] % (Auto) [place] # Eos # Lymph # (Auto) [place] # (Auto) Eos # (Auto) Seg Neutrophils % Seg Neuts % (Manual) Baso # (Auto) Lymphocytes % (Manual) Monocytes % (Manual) Eosinophils % (Manual) Basophils % (Manual) Seg Neutrophils # Seg Neutrophils # Man Lymphocytes # (Manual) Monocytes # (Manual) Eosinophils # (Manual) Nucleated RBC % Basophils # (Manual) PT INR APTT Heparin Anti-Xa Level ABG pH POC ABG pO2 ABG pO2 ABG HCO3 ABG O2 Saturation ABG Base Excess POC ABG pCO2 ABG Hemoglobin ABG Oxyhemoglobin ABG Glucose Oxyhemoglobin Sodium Potassium Chloride 97.2 L Carbon Dioxide 31 H BUN 23 H Creatinine 0.6 L Glucose 153 H POC Glucose 149 H 144 H Lactic Acid Calcium Phosphorus Magnesium AST ALT Lactate Dehydrogenase Total Bilirubin Direct Bilirubin CK-MB (CK-2) C-Reactive Protein NT-Pro-B Natriuret Pep Total Protein Albumin Arterial Blood Glucose Urine WBC (Auto) Urine Creatinine 12/23/19 12/23/19 12/23/19 15:30 17:49 23:31 WBC RBC Hgb Hct MCHC RDW MCV MCH Lymph % (Auto) [place] % (Auto) [place] # Eos # Lymph # (Auto) [place] # (Auto) Eos # (Auto) Seg Neutrophils % Seg Neuts % (Manual) Baso # (Auto) Lymphocytes % (Manual) Monocytes % (Manual) Eosinophils % (Manual) Basophils % (Manual) Seg Neutrophils # Seg Neutrophils # Man Lymphocytes # (Manual) Monocytes # (Manual) Eosinophils # (Manual) Nucleated RBC % Basophils # (Manual) PT INR APTT Heparin Anti-Xa Level 0.21 L ABG pH POC ABG pO2 ABG pO2 ABG HCO3 ABG O2 Saturation ABG Base Excess POC ABG pCO2 ABG Hemoglobin ABG Oxyhemoglobin ABG Glucose Oxyhemoglobin Sodium Potassium Chloride Carbon Dioxide BUN Creatinine Glucose POC Glucose 192 H 151 H Lactic Acid Calcium Phosphorus Magnesium AST ALT Lactate Dehydrogenase Total Bilirubin Direct Bilirubin CK-MB (CK-2) C-Reactive Protein NT-Pro-B Natriuret Pep Total Protein Albumin Arterial Blood Glucose Urine WBC (Auto) Urine Creatinine 12/24/19 12/24/19 12/24/19 05:34 12:13 16:50 WBC RBC Hgb Hct MCHC RDW MCV MCH Lymph % (Auto) [place] % (Auto) [place] # Eos # Lymph # (Auto) [place] # (Auto) Eos # (Auto) Seg Neutrophils % Seg Neuts % (Manual) Baso # (Auto) Lymphocytes % (Manual) Monocytes % (Manual) Eosinophils % (Manual) Basophils % (Manual) Seg Neutrophils # Seg Neutrophils # Man Lymphocytes # (Manual) Monocytes # (Manual) Eosinophils # (Manual) Nucleated RBC % Basophils # (Manual) PT INR APTT Heparin Anti-Xa Level 0.16 L ABG pH POC ABG pO2 ABG pO2 ABG HCO3 ABG O2 Saturation ABG Base Excess POC ABG pCO2 ABG Hemoglobin ABG Oxyhemoglobin ABG Glucose Oxyhemoglobin Sodium Potassium Chloride Carbon Dioxide BUN Creatinine Glucose POC Glucose 145 H 124 H Lactic Acid Calcium Phosphorus Magnesium AST ALT Lactate Dehydrogenase Total Bilirubin Direct Bilirubin CK-MB (CK-2) C-Reactive Protein NT-Pro-B Natriuret Pep Total Protein Albumin Arterial Blood Glucose Urine WBC (Auto) Urine Creatinine 12/24/19 12/25/19 12/25/19 17:53 00:14 04:18 WBC 12.9 H RBC 3.30 L Hgb 9.1 L Hct 28.8 L MCHC RDW 16.4 H MCV MCH Lymph % (Auto) [place] % (Auto) 7.8 H [place] # Eos # Lymph # (Auto) [place] # (Auto) 1.0 H Eos # (Auto) Seg Neutrophils % 75.5 H Seg Neuts % (Manual) Baso # (Auto) Lymphocytes % (Manual) Monocytes % (Manual) Eosinophils % (Manual) Basophils % (Manual) Seg Neutrophils # 9.7 H Seg Neutrophils # Man Lymphocytes # (Manual) Monocytes # (Manual) Eosinophils # (Manual) Nucleated RBC % Basophils # (Manual) PT INR APTT Heparin Anti-Xa Level ABG pH POC ABG pO2 ABG pO2 ABG HCO3 ABG O2 Saturation ABG Base Excess POC ABG pCO2 ABG Hemoglobin ABG Oxyhemoglobin ABG Glucose Oxyhemoglobin Sodium Potassium Chloride Carbon Dioxide BUN Creatinine Glucose POC Glucose 164 H 148 H Lactic Acid Calcium Phosphorus Magnesium AST ALT Lactate Dehydrogenase Total Bilirubin Direct Bilirubin CK-MB (CK-2) C-Reactive Protein NT-Pro-B Natriuret Pep Total Protein Albumin Arterial Blood Glucose Urine WBC (Auto) Urine Creatinine 12/25/19 12/25/19 12/25/19 04:18 05:38 11:44 WBC RBC Hgb Hct MCHC RDW MCV MCH Lymph % (Auto) [place] % (Auto) [place] # Eos # Lymph # (Auto) [place] # (Auto) Eos # (Auto) Seg Neutrophils % Seg Neuts % (Manual) Baso # (Auto) Lymphocytes % (Manual) Monocytes % (Manual) Eosinophils % (Manual) Basophils % (Manual) Seg Neutrophils # Seg Neutrophils # Man Lymphocytes # (Manual) Monocytes # (Manual) Eosinophils # (Manual) Nucleated RBC % Basophils # (Manual) PT INR APTT Heparin Anti-Xa Level ABG pH POC ABG pO2 ABG pO2 ABG HCO3 ABG O2 Saturation ABG Base Excess POC ABG pCO2 ABG Hemoglobin ABG Oxyhemoglobin ABG Glucose Oxyhemoglobin Sodium Potassium Chloride Carbon Dioxide 33 H BUN 27 H Creatinine 0.6 L Glucose 132 H POC Glucose 152 H 166 H Lactic Acid Calcium Phosphorus Magnesium AST ALT Lactate Dehydrogenase Total Bilirubin Direct Bilirubin CK-MB (CK-2) C-Reactive Protein NT-Pro-B Natriuret Pep Total Protein Albumin Arterial Blood Glucose Urine WBC (Auto) Urine Creatinine 12/25/19 12/26/19 12/26/19 18:29 00:17 00:18 WBC RBC Hgb Hct MCHC RDW MCV MCH Lymph % (Auto) [place] % (Auto) [place] # Eos # Lymph # (Auto) [place] # (Auto) Eos # (Auto) Seg Neutrophils % Seg Neuts % (Manual) Baso # (Auto) Lymphocytes % (Manual) Monocytes % (Manual) Eosinophils % (Manual) Basophils % (Manual) Seg Neutrophils # Seg Neutrophils # Man Lymphocytes # (Manual) Monocytes # (Manual) Eosinophils # (Manual) Nucleated RBC % Basophils # (Manual) PT INR APTT Heparin Anti-Xa Level ABG pH POC ABG pO2 ABG pO2 ABG HCO3 ABG O2 Saturation ABG Base Excess POC ABG pCO2 ABG Hemoglobin ABG Oxyhemoglobin ABG Glucose Oxyhemoglobin Sodium Potassium Chloride 97.8 L Carbon Dioxide BUN 25 H Creatinine 0.6 L Glucose 140 H POC Glucose 194 H 151 H Lactic Acid Calcium Phosphorus Magnesium AST ALT Lactate Dehydrogenase Total Bilirubin Direct Bilirubin CK-MB (CK-2) C-Reactive Protein NT-Pro-B Natriuret Pep Total Protein Albumin Arterial Blood Glucose Urine WBC (Auto) Urine Creatinine 12/26/19 12/26/19 12/26/19 05:36 11:41 17:50 WBC RBC Hgb Hct MCHC RDW MCV MCH Lymph % (Auto) [place] % (Auto) [place] # Eos # Lymph # (Auto) [place] # (Auto) Eos # (Auto) Seg Neutrophils % Seg Neuts % (Manual) Baso # (Auto) Lymphocytes % (Manual) Monocytes % (Manual) Eosinophils % (Manual) Basophils % (Manual) Seg Neutrophils # Seg Neutrophils # Man Lymphocytes # (Manual) Monocytes # (Manual) Eosinophils # (Manual) Nucleated RBC % Basophils # (Manual) PT INR APTT Heparin Anti-Xa Level ABG pH POC ABG pO2 ABG pO2 ABG HCO3 ABG O2 Saturation ABG Base Excess POC ABG pCO2 ABG Hemoglobin ABG Oxyhemoglobin ABG Glucose Oxyhemoglobin Sodium Potassium Chloride Carbon Dioxide BUN Creatinine Glucose POC Glucose 156 H 148 H 139 H Lactic Acid Calcium Phosphorus Magnesium AST ALT Lactate Dehydrogenase Total Bilirubin Direct Bilirubin CK-MB (CK-2) C-Reactive Protein NT-Pro-B Natriuret Pep Total Protein Albumin Arterial Blood Glucose Urine WBC (Auto) Urine Creatinine 12/26/19 12/27/19 12/27/19 23:19 05:34 12:02 WBC RBC Hgb Hct MCHC RDW MCV MCH Lymph % (Auto) [place] % (Auto) [place] # Eos # Lymph # (Auto) [place] # (Auto) Eos # (Auto) Seg Neutrophils % Seg Neuts % (Manual) Baso # (Auto) Lymphocytes % (Manual) Monocytes % (Manual) Eosinophils % (Manual) Basophils % (Manual) Seg Neutrophils # Seg Neutrophils # Man Lymphocytes # (Manual) Monocytes # (Manual) Eosinophils # (Manual) Nucleated RBC % Basophils # (Manual) PT INR APTT Heparin Anti-Xa Level ABG pH POC ABG pO2 ABG pO2 ABG HCO3 ABG O2 Saturation ABG Base Excess POC ABG pCO2 ABG Hemoglobin ABG Oxyhemoglobin ABG Glucose Oxyhemoglobin Sodium Potassium Chloride Carbon Dioxide BUN Creatinine Glucose POC Glucose 161 H 145 H 157 H Lactic Acid Calcium Phosphorus Magnesium AST ALT Lactate Dehydrogenase Total Bilirubin Direct Bilirubin CK-MB (CK-2) C-Reactive Protein NT-Pro-B Natriuret Pep Total Protein Albumin Arterial Blood Glucose Urine WBC (Auto) Urine Creatinine 12/27/19 12/27/19 12/27/19 17:35 20:11 23:00 WBC RBC Hgb Hct MCHC RDW MCV MCH Lymph % (Auto) [place] % (Auto) [place] # Eos # Lymph # (Auto) [place] # (Auto) Eos # (Auto) Seg Neutrophils % Seg Neuts % (Manual) Baso # (Auto) Lymphocytes % (Manual) Monocytes % (Manual) Eosinophils % (Manual) Basophils % (Manual) Seg Neutrophils # Seg Neutrophils # Man Lymphocytes # (Manual) Monocytes # (Manual) Eosinophils # (Manual) Nucleated RBC % Basophils # (Manual) PT INR APTT Heparin Anti-Xa Level 0.19 L ABG pH POC ABG pO2 ABG pO2 ABG HCO3 ABG O2 Saturation ABG Base Excess POC ABG pCO2 ABG Hemoglobin ABG Oxyhemoglobin ABG Glucose Oxyhemoglobin Sodium Potassium Chloride Carbon Dioxide BUN Creatinine Glucose POC Glucose 158 H 155 H Lactic Acid Calcium Phosphorus Magnesium AST ALT Lactate Dehydrogenase Total Bilirubin Direct Bilirubin CK-MB (CK-2) C-Reactive Protein NT-Pro-B Natriuret Pep Total Protein Albumin Arterial Blood Glucose Urine WBC (Auto) Urine Creatinine 12/27/19 12/28/19 12/28/19 23:45 02:41 02:41 WBC 13.0 H RBC 3.48 L Hgb 9.5 L Hct 30.6 L MCHC 31 L RDW 16.6 H MCV MCH 27 L Lymph % (Auto) 13.0 L [place] % (Auto) 8.0 H [place] # Eos # Lymph # (Auto) [place] # (Auto) 1.0 H Eos # (Auto) Seg Neutrophils % 76.3 H Seg Neuts % (Manual) Baso # (Auto) Lymphocytes % (Manual) Monocytes % (Manual) Eosinophils % (Manual) Basophils % (Manual) Seg Neutrophils # 9.9 H Seg Neutrophils # Man Lymphocytes # (Manual) Monocytes # (Manual) Eosinophils # (Manual) Nucleated RBC % Basophils # (Manual) PT INR APTT Heparin Anti-Xa Level ABG pH POC ABG pO2 ABG pO2 ABG HCO3 ABG O2 Saturation ABG Base Excess POC ABG pCO2 ABG Hemoglobin ABG Oxyhemoglobin ABG Glucose Oxyhemoglobin Sodium Potassium Chloride Carbon Dioxide BUN 22 H Creatinine 0.6 L Glucose 101 H POC Glucose 130 H Lactic Acid Calcium Phosphorus Magnesium AST ALT Lactate Dehydrogenase Total Bilirubin Direct Bilirubin CK-MB (CK-2) C-Reactive Protein NT-Pro-B Natriuret Pep Total Protein Albumin Arterial Blood Glucose Urine WBC (Auto) Urine Creatinine 12/28/19 12/28/19 12/28/19 06:00 12:34 18:13 WBC RBC Hgb Hct MCHC RDW MCV MCH Lymph % (Auto) [place] % (Auto) [place] # Eos # Lymph # (Auto) [place] # (Auto) Eos # (Auto) Seg Neutrophils % Seg Neuts % (Manual) Baso # (Auto) Lymphocytes % (Manual) Monocytes % (Manual) Eosinophils % (Manual) Basophils % (Manual) Seg Neutrophils # Seg Neutrophils # Man Lymphocytes # (Manual) Monocytes # (Manual) Eosinophils # (Manual) Nucleated RBC % Basophils # (Manual) PT INR APTT Heparin Anti-Xa Level ABG pH POC ABG pO2 ABG pO2 ABG HCO3 ABG O2 Saturation ABG Base Excess POC ABG pCO2 ABG Hemoglobin ABG Oxyhemoglobin ABG Glucose Oxyhemoglobin Sodium Potassium Chloride Carbon Dioxide BUN Creatinine Glucose POC Glucose 150 H 161 H 128 H Lactic Acid Calcium Phosphorus Magnesium AST ALT Lactate Dehydrogenase Total Bilirubin Direct Bilirubin CK-MB (CK-2) C-Reactive Protein NT-Pro-B Natriuret Pep Total Protein Albumin Arterial Blood Glucose Urine WBC (Auto) Urine Creatinine 12/28/19 12/29/19 12/29/19 23:36 05:21 11:40 WBC RBC Hgb Hct MCHC RDW MCV MCH Lymph % (Auto) [place] % (Auto) [place] # Eos # Lymph # (Auto) [place] # (Auto) Eos # (Auto) Seg Neutrophils % Seg Neuts % (Manual) Baso # (Auto) Lymphocytes % (Manual) Monocytes % (Manual) Eosinophils % (Manual) Basophils % (Manual) Seg Neutrophils # Seg Neutrophils # Man Lymphocytes # (Manual) Monocytes # (Manual) Eosinophils # (Manual) Nucleated RBC % Basophils # (Manual) PT INR APTT Heparin Anti-Xa Level ABG pH POC ABG pO2 ABG pO2 ABG HCO3 ABG O2 Saturation ABG Base Excess POC ABG pCO2 ABG Hemoglobin ABG Oxyhemoglobin ABG Glucose Oxyhemoglobin Sodium Potassium Chloride Carbon Dioxide BUN Creatinine Glucose POC Glucose 137 H 136 H 166 H Lactic Acid Calcium Phosphorus Magnesium AST ALT Lactate Dehydrogenase Total Bilirubin Direct Bilirubin CK-MB (CK-2) C-Reactive Protein NT-Pro-B Natriuret Pep Total Protein Albumin Arterial Blood Glucose Urine WBC (Auto) Urine Creatinine 12/29/19 12/29/19 12/29/19 17:23 19:21 23:38 WBC RBC Hgb Hct MCHC RDW MCV MCH Lymph % (Auto) [place] % (Auto) [place] # Eos # Lymph # (Auto) [place] # (Auto) Eos # (Auto) Seg Neutrophils % Seg Neuts % (Manual) Baso # (Auto) Lymphocytes % (Manual) Monocytes % (Manual) Eosinophils % (Manual) Basophils % (Manual) Seg Neutrophils # Seg Neutrophils # Man Lymphocytes # (Manual) Monocytes # (Manual) Eosinophils # (Manual) Nucleated RBC % Basophils # (Manual) PT INR APTT Heparin Anti-Xa Level 0.20 L ABG pH POC ABG pO2 ABG pO2 ABG HCO3 ABG O2 Saturation ABG Base Excess POC ABG pCO2 ABG Hemoglobin ABG Oxyhemoglobin ABG Glucose Oxyhemoglobin Sodium Potassium Chloride Carbon Dioxide BUN Creatinine Glucose POC Glucose 144 H 141 H Lactic Acid Calcium Phosphorus Magnesium AST ALT Lactate Dehydrogenase Total Bilirubin Direct Bilirubin CK-MB (CK-2) C-Reactive Protein NT-Pro-B Natriuret Pep Total Protein Albumin Arterial Blood Glucose Urine WBC (Auto) Urine Creatinine 12/30/19 12/30/19 12/30/19 03:58 03:58 04:59 WBC RBC 3.54 L Hgb 9.8 L Hct 30.7 L MCHC RDW 16.8 H MCV MCH Lymph % (Auto) [place] % (Auto) [place] # Eos # Lymph # (Auto) [place] # (Auto) Eos # (Auto) Seg Neutrophils % Seg Neuts % (Manual) Baso # (Auto) Lymphocytes % (Manual) Monocytes % (Manual) Eosinophils % (Manual) Basophils % (Manual) Seg Neutrophils # Seg Neutrophils # Man Lymphocytes # (Manual) Monocytes # (Manual) Eosinophils # (Manual) Nucleated RBC % Basophils # (Manual) PT INR APTT Heparin Anti-Xa Level ABG pH POC ABG pO2 ABG pO2 ABG HCO3 29.8 H ABG O2 Saturation ABG Base Excess 4.8 H POC ABG pCO2 ABG Hemoglobin 11.2 L ABG Oxyhemoglobin ABG Glucose Oxyhemoglobin 93.8 L Sodium Potassium Chloride 97.8 L Carbon Dioxide BUN 26 H Creatinine Glucose 168 H POC Glucose Lactic Acid Calcium Phosphorus Magnesium AST ALT Lactate Dehydrogenase Total Bilirubin Direct Bilirubin CK-MB (CK-2) C-Reactive Protein NT-Pro-B Natriuret Pep Total Protein Albumin Arterial Blood Glucose Urine WBC (Auto) Urine Creatinine 12/30/19 12/30/19 12/30/19 05:45 11:34 17:28 WBC RBC Hgb Hct MCHC RDW MCV MCH Lymph % (Auto) [place] % (Auto) [place] # Eos # Lymph # (Auto) [place] # (Auto) Eos # (Auto) Seg Neutrophils % Seg Neuts % (Manual) Baso # (Auto) Lymphocytes % (Manual) Monocytes % (Manual) Eosinophils % (Manual) Basophils % (Manual) Seg Neutrophils # Seg Neutrophils # Man Lymphocytes # (Manual) Monocytes # (Manual) Eosinophils # (Manual) Nucleated RBC % Basophils # (Manual) PT INR APTT Heparin Anti-Xa Level ABG pH POC ABG pO2 ABG pO2 ABG HCO3 ABG O2 Saturation ABG Base Excess POC ABG pCO2 ABG Hemoglobin ABG Oxyhemoglobin ABG Glucose Oxyhemoglobin Sodium Potassium Chloride Carbon Dioxide BUN Creatinine Glucose POC Glucose 163 H 180 H 150 H Lactic Acid Calcium Phosphorus Magnesium AST ALT Lactate Dehydrogenase Total Bilirubin Direct Bilirubin CK-MB (CK-2) C-Reactive Protein NT-Pro-B Natriuret Pep Total Protein Albumin Arterial Blood Glucose Urine WBC (Auto) Urine Creatinine 12/30/19 12/31/19 12/31/19 23:43 04:55 05:07 WBC RBC Hgb Hct MCHC RDW MCV MCH Lymph % (Auto) [place] % (Auto) [place] # Eos # Lymph # (Auto) [place] # (Auto) Eos # (Auto) Seg Neutrophils % Seg Neuts % (Manual) Baso # (Auto) Lymphocytes % (Manual) Monocytes % (Manual) Eosinophils % (Manual) Basophils % (Manual) Seg Neutrophils # Seg Neutrophils # Man Lymphocytes # (Manual) Monocytes # (Manual) Eosinophils # (Manual) Nucleated RBC % Basophils # (Manual) PT INR APTT Heparin Anti-Xa Level ABG pH POC ABG pO2 ABG pO2 ABG HCO3 ABG O2 Saturation ABG Base Excess POC ABG pCO2 ABG Hemoglobin ABG Oxyhemoglobin ABG Glucose Oxyhemoglobin Sodium Potassium 5.6 H D Chloride Carbon Dioxide BUN 33 H Creatinine Glucose 131 H POC Glucose 142 H 134 H Lactic Acid Calcium Phosphorus Magnesium AST ALT Lactate Dehydrogenase Total Bilirubin Direct Bilirubin CK-MB (CK-2) C-Reactive Protein NT-Pro-B Natriuret Pep Total Protein Albumin Arterial Blood Glucose Urine WBC (Auto) Urine Creatinine 12/31/19 12/31/19 12/31/19 11:30 17:19 17:36 WBC RBC Hgb Hct MCHC RDW MCV MCH Lymph % (Auto) [place] % (Auto) [place] # Eos # Lymph # (Auto) [place] # (Auto) Eos # (Auto) Seg Neutrophils % Seg Neuts % (Manual) Baso # (Auto) Lymphocytes % (Manual) Monocytes % (Manual) Eosinophils % (Manual) Basophils % (Manual) Seg Neutrophils # Seg Neutrophils # Man Lymphocytes # (Manual) Monocytes # (Manual) Eosinophils # (Manual) Nucleated RBC % Basophils # (Manual) PT INR APTT Heparin Anti-Xa Level ABG pH POC ABG pO2 ABG pO2 ABG HCO3 ABG O2 Saturation ABG Base Excess POC ABG pCO2 ABG Hemoglobin ABG Oxyhemoglobin ABG Glucose Oxyhemoglobin Sodium Potassium Chloride Carbon Dioxide BUN 35 H Creatinine Glucose 156 H POC Glucose 158 H 181 H Lactic Acid Calcium Phosphorus Magnesium AST ALT Lactate Dehydrogenase Total Bilirubin Direct Bilirubin CK-MB (CK-2) C-Reactive Protein NT-Pro-B Natriuret Pep Total Protein Albumin Arterial Blood Glucose Urine WBC (Auto) Urine Creatinine 12/31/19 12/31/19 12/31/19 18:16 19:41 21:53 WBC RBC Hgb Hct MCHC RDW MCV MCH Lymph % (Auto) [place] % (Auto) [place] # Eos # Lymph # (Auto) [place] # (Auto) Eos # (Auto) Seg Neutrophils % Seg Neuts % (Manual) Baso # (Auto) Lymphocytes % (Manual) Monocytes % (Manual) Eosinophils % (Manual) Basophils % (Manual) Seg Neutrophils # Seg Neutrophils # Man Lymphocytes # (Manual) Monocytes # (Manual) Eosinophils # (Manual) Nucleated RBC % Basophils # (Manual) PT INR APTT Heparin Anti-Xa Level 0.20 L ABG pH POC ABG pO2 ABG pO2 ABG HCO3 ABG O2 Saturation ABG Base Excess POC ABG pCO2 ABG Hemoglobin ABG Oxyhemoglobin ABG Glucose Oxyhemoglobin Sodium Potassium Chloride Carbon Dioxide BUN 34 H Creatinine Glucose 169 H POC Glucose 141 H Lactic Acid Calcium Phosphorus Magnesium AST ALT Lactate Dehydrogenase Total Bilirubin Direct Bilirubin CK-MB (CK-2) C-Reactive Protein NT-Pro-B Natriuret Pep Total Protein Albumin Arterial Blood Glucose Urine WBC (Auto) Urine Creatinine 12/31/19 01/01/20 01/01/20 23:51 05:17 10:40 WBC RBC Hgb Hct MCHC RDW MCV MCH Lymph % (Auto) [place] % (Auto) [place] # Eos # Lymph # (Auto) [place] # (Auto) Eos # (Auto) Seg Neutrophils % Seg Neuts % (Manual) Baso # (Auto) Lymphocytes % (Manual) Monocytes % (Manual) Eosinophils % (Manual) Basophils % (Manual) Seg Neutrophils # Seg Neutrophils # Man Lymphocytes # (Manual) Monocytes # (Manual) Eosinophils # (Manual) Nucleated RBC % Basophils # (Manual) PT INR APTT Heparin Anti-Xa Level ABG pH POC ABG pO2 ABG pO2 ABG HCO3 ABG O2 Saturation ABG Base Excess POC ABG pCO2 ABG Hemoglobin ABG Oxyhemoglobin ABG Glucose Oxyhemoglobin Sodium Potassium Chloride Carbon Dioxide BUN 31 H Creatinine 0.7 L Glucose 137 H POC Glucose 131 H 155 H Lactic Acid Calcium Phosphorus Magnesium AST 73 H ALT 97 H Lactate Dehydrogenase Total Bilirubin Direct Bilirubin CK-MB (CK-2) C-Reactive Protein NT-Pro-B Natriuret Pep 3866 H Total Protein Albumin 2.8 L Arterial Blood Glucose Urine WBC (Auto) Urine Creatinine 01/01/20 01/01/20 01/01/20 12:26 15:33 17:53 WBC 14.3 H RBC 3.35 L Hgb 9.1 L Hct 28.8 L MCHC RDW 17.0 H MCV MCH 27 L Lymph % (Auto) 7.0 L [place] % (Auto) 7.6 H [place] # Eos # Lymph # (Auto) 1.0 L [place] # (Auto) 1.1 H Eos # (Auto) Seg Neutrophils % 83.3 H Seg Neuts % (Manual) Baso # (Auto) Lymphocytes % (Manual) Monocytes % (Manual) Eosinophils % (Manual) Basophils % (Manual) Seg Neutrophils # 12.0 H Seg Neutrophils # Man Lymphocytes # (Manual) Monocytes # (Manual) Eosinophils # (Manual) Nucleated RBC % Basophils # (Manual) PT INR APTT Heparin Anti-Xa Level ABG pH POC ABG pO2 ABG pO2 ABG HCO3 ABG O2 Saturation ABG Base Excess POC ABG pCO2 ABG Hemoglobin ABG Oxyhemoglobin ABG Glucose Oxyhemoglobin Sodium Potassium Chloride Carbon Dioxide BUN Creatinine Glucose POC Glucose 128 H 128 H Lactic Acid Calcium Phosphorus Magnesium AST ALT Lactate Dehydrogenase Total Bilirubin Direct Bilirubin CK-MB (CK-2) C-Reactive Protein NT-Pro-B Natriuret Pep Total Protein Albumin Arterial Blood Glucose Urine WBC (Auto) Urine Creatinine 01/01/20 01/02/20 01/02/20 23:04 05:39 07:00 WBC RBC Hgb Hct MCHC RDW MCV MCH Lymph % (Auto) [place] % (Auto) [place] # Eos # Lymph # (Auto) [place] # (Auto) Eos # (Auto) Seg Neutrophils % Seg Neuts % (Manual) Baso # (Auto) Lymphocytes % (Manual) Monocytes % (Manual) Eosinophils % (Manual) Basophils % (Manual) Seg Neutrophils # Seg Neutrophils # Man Lymphocytes # (Manual) Monocytes # (Manual) Eosinophils # (Manual) Nucleated RBC % Basophils # (Manual) PT INR APTT Heparin Anti-Xa Level 0.13 L ABG pH POC ABG pO2 ABG pO2 ABG HCO3 ABG O2 Saturation ABG Base Excess POC ABG pCO2 ABG Hemoglobin ABG Oxyhemoglobin ABG Glucose Oxyhemoglobin Sodium Potassium Chloride Carbon Dioxide BUN Creatinine Glucose POC Glucose 120 H 169 H Lactic Acid Calcium Phosphorus Magnesium AST ALT Lactate Dehydrogenase Total Bilirubin Direct Bilirubin CK-MB (CK-2) C-Reactive Protein NT-Pro-B Natriuret Pep Total Protein Albumin Arterial Blood Glucose Urine WBC (Auto) Urine Creatinine 01/02/20 01/02/20 01/02/20 12:15 14:06 17:58 WBC RBC Hgb Hct MCHC RDW MCV MCH Lymph % (Auto) [place] % (Auto) [place] # Eos # Lymph # (Auto) [place] # (Auto) Eos # (Auto) Seg Neutrophils % Seg Neuts % (Manual) Baso # (Auto) Lymphocytes % (Manual) Monocytes % (Manual) Eosinophils % (Manual) Basophils % (Manual) Seg Neutrophils # Seg Neutrophils # Man Lymphocytes # (Manual) Monocytes # (Manual) Eosinophils # (Manual) Nucleated RBC % Basophils # (Manual) PT INR APTT Heparin Anti-Xa Level < 0.10 L ABG pH POC ABG pO2 ABG pO2 ABG HCO3 ABG O2 Saturation ABG Base Excess POC ABG pCO2 ABG Hemoglobin ABG Oxyhemoglobin ABG Glucose Oxyhemoglobin Sodium Potassium Chloride Carbon Dioxide BUN Creatinine Glucose POC Glucose 190 H 198 H Lactic Acid Calcium Phosphorus Magnesium AST ALT Lactate Dehydrogenase Total Bilirubin Direct Bilirubin CK-MB (CK-2) C-Reactive Protein NT-Pro-B Natriuret Pep Total Protein Albumin Arterial Blood Glucose Urine WBC (Auto) Urine Creatinine 01/02/20 01/02/20 01/03/20 21:43 23:33 05:42 WBC RBC Hgb Hct MCHC RDW MCV MCH Lymph % (Auto) [place] % (Auto) [place] # Eos # Lymph # (Auto) [place] # (Auto) Eos # (Auto) Seg Neutrophils % Seg Neuts % (Manual) Baso # (Auto) Lymphocytes % (Manual) Monocytes % (Manual) Eosinophils % (Manual) Basophils % (Manual) Seg Neutrophils # Seg Neutrophils # Man Lymphocytes # (Manual) Monocytes # (Manual) Eosinophils # (Manual) Nucleated RBC % Basophils # (Manual) PT INR APTT Heparin Anti-Xa Level 0.10 L ABG pH POC ABG pO2 ABG pO2 ABG HCO3 ABG O2 Saturation ABG Base Excess POC ABG pCO2 ABG Hemoglobin ABG Oxyhemoglobin ABG Glucose Oxyhemoglobin Sodium Potassium Chloride Carbon Dioxide BUN Creatinine Glucose POC Glucose 180 H 163 H Lactic Acid Calcium Phosphorus Magnesium AST ALT Lactate Dehydrogenase Total Bilirubin Direct Bilirubin CK-MB (CK-2) C-Reactive Protein NT-Pro-B Natriuret Pep Total Protein Albumin Arterial Blood Glucose Urine WBC (Auto) Urine Creatinine 01/03/20 01/03/20 01/03/20 06:50 07:25 07:45 WBC 12.1 H RBC 3.35 L Hgb 9.0 L Hct 28.9 L MCHC 31 L RDW 16.6 H MCV MCH 27 L Lymph % (Auto) 13.0 L [place] % (Auto) 8.6 H [place] # Eos # Lymph # (Auto) [place] # (Auto) 1.0 H Eos # (Auto) Seg Neutrophils % 75.9 H Seg Neuts % (Manual) Baso # (Auto) Lymphocytes % (Manual) Monocytes % (Manual) Eosinophils % (Manual) Basophils % (Manual) Seg Neutrophils # 9.2 H Seg Neutrophils # Man Lymphocytes # (Manual) Monocytes # (Manual) Eosinophils # (Manual) Nucleated RBC % Basophils # (Manual) PT INR APTT Heparin Anti-Xa Level 0.29 L ABG pH POC ABG pO2 ABG pO2 ABG HCO3 ABG O2 Saturation ABG Base Excess POC ABG pCO2 ABG Hemoglobin ABG Oxyhemoglobin ABG Glucose Oxyhemoglobin Sodium Potassium 3.3 L D Chloride Carbon Dioxide 35 H D BUN 23 H Creatinine 0.6 L Glucose 149 H POC Glucose Lactic Acid Calcium Phosphorus Magnesium AST ALT 88 H Lactate Dehydrogenase Total Bilirubin Direct Bilirubin CK-MB (CK-2) C-Reactive Protein NT-Pro-B Natriuret Pep Total Protein 6.2 L Albumin 2.9 L Arterial Blood Glucose Urine WBC (Auto) Urine Creatinine 01/03/20 01/03/20 01/03/20 12:05 17:42 18:30 WBC RBC Hgb Hct MCHC RDW MCV MCH Lymph % (Auto) [place] % (Auto) [place] # Eos # Lymph # (Auto) [place] # (Auto) Eos # (Auto) Seg Neutrophils % Seg Neuts % (Manual) Baso # (Auto) Lymphocytes % (Manual) Monocytes % (Manual) Eosinophils % (Manual) Basophils % (Manual) Seg Neutrophils # Seg Neutrophils # Man Lymphocytes # (Manual) Monocytes # (Manual) Eosinophils # (Manual) Nucleated RBC % Basophils # (Manual) PT INR APTT Heparin Anti-Xa Level ABG pH POC ABG pO2 ABG pO2 70.7 L ABG HCO3 36.1 H ABG O2 Saturation 94.4 L ABG Base Excess 10.0 H POC ABG pCO2 ABG Hemoglobin 9.7 L ABG Oxyhemoglobin ABG Glucose Oxyhemoglobin 91.8 L Sodium Potassium Chloride Carbon Dioxide BUN Creatinine Glucose POC Glucose 128 H 132 H Lactic Acid Calcium Phosphorus Magnesium AST ALT Lactate Dehydrogenase Total Bilirubin Direct Bilirubin CK-MB (CK-2) C-Reactive Protein NT-Pro-B Natriuret Pep Total Protein Albumin Arterial Blood Glucose Urine WBC (Auto) Urine Creatinine 01/04/20 01/04/20 01/04/20 00:10 04:26 05:23 WBC RBC Hgb Hct MCHC RDW MCV MCH Lymph % (Auto) [place] % (Auto) [place] # Eos # Lymph # (Auto) [place] # (Auto) Eos # (Auto) Seg Neutrophils % Seg Neuts % (Manual) Baso # (Auto) Lymphocytes % (Manual) Monocytes % (Manual) Eosinophils % (Manual) Basophils % (Manual) Seg Neutrophils # Seg Neutrophils # Man Lymphocytes # (Manual) Monocytes # (Manual) Eosinophils # (Manual) Nucleated RBC % Basophils # (Manual) PT INR APTT Heparin Anti-Xa Level 0.16 L ABG pH POC ABG pO2 ABG pO2 ABG HCO3 ABG O2 Saturation ABG Base Excess POC ABG pCO2 ABG Hemoglobin ABG Oxyhemoglobin ABG Glucose Oxyhemoglobin Sodium Potassium Chloride Carbon Dioxide BUN Creatinine Glucose POC Glucose 121 H 119 H Lactic Acid Calcium Phosphorus Magnesium AST ALT Lactate Dehydrogenase Total Bilirubin Direct Bilirubin CK-MB (CK-2) C-Reactive Protein NT-Pro-B Natriuret Pep Total Protein Albumin Arterial Blood Glucose Urine WBC (Auto) Urine Creatinine 01/04/20 01/04/20 01/04/20 09:50 09:50 12:18 WBC 15.4 H RBC 3.30 L Hgb 8.7 L Hct 28.2 L MCHC 31 L RDW 17.0 H MCV MCH 26 L Lymph % (Auto) [place] % (Auto) 7.6 H [place] # Eos # Lymph # (Auto) [place] # (Auto) 1.2 H Eos # (Auto) Seg Neutrophils % 75.4 H Seg Neuts % (Manual) Baso # (Auto) Lymphocytes % (Manual) Monocytes % (Manual) Eosinophils % (Manual) Basophils % (Manual) Seg Neutrophils # 11.6 H Seg Neutrophils # Man Lymphocytes # (Manual) Monocytes # (Manual) Eosinophils # (Manual) Nucleated RBC % Basophils # (Manual) PT INR APTT Heparin Anti-Xa Level ABG pH POC ABG pO2 ABG pO2 ABG HCO3 ABG O2 Saturation ABG Base Excess POC ABG pCO2 ABG Hemoglobin ABG Oxyhemoglobin ABG Glucose Oxyhemoglobin Sodium 148 H Potassium 3.5 L Chloride Carbon Dioxide 32 H BUN Creatinine 0.6 L Glucose 114 H POC Glucose 111 H Lactic Acid Calcium Phosphorus Magnesium AST ALT 59 H Lactate Dehydrogenase Total Bilirubin Direct Bilirubin CK-MB (CK-2) C-Reactive Protein NT-Pro-B Natriuret Pep Total Protein Albumin 2.6 L Arterial Blood Glucose Urine WBC (Auto) Urine Creatinine 01/05/20 01/05/20 01/05/20 04:05 04:05 05:19 WBC 11.7 H RBC 3.50 L Hgb 9.3 L Hct 29.9 L MCHC 31 L RDW 16.6 H MCV MCH 27 L Lymph % (Auto) 13.1 L [place] % (Auto) 9.7 H [place] # Eos # Lymph # (Auto) [place] # (Auto) 1.1 H Eos # (Auto) Seg Neutrophils % 74.0 H Seg Neuts % (Manual) Baso # (Auto) Lymphocytes % (Manual) Monocytes % (Manual) Eosinophils % (Manual) Basophils % (Manual) Seg Neutrophils # 8.6 H Seg Neutrophils # Man Lymphocytes # (Manual) Monocytes # (Manual) Eosinophils # (Manual) Nucleated RBC % Basophils # (Manual) PT INR APTT Heparin Anti-Xa Level ABG pH POC ABG pO2 ABG pO2 ABG HCO3 ABG O2 Saturation ABG Base Excess POC ABG pCO2 ABG Hemoglobin ABG Oxyhemoglobin ABG Glucose Oxyhemoglobin Sodium 151 H Potassium Chloride Carbon Dioxide 34 H BUN Creatinine 0.7 L Glucose POC Glucose 112 H Lactic Acid Calcium Phosphorus Magnesium AST ALT 59 H Lactate Dehydrogenase Total Bilirubin Direct Bilirubin CK-MB (CK-2) C-Reactive Protein NT-Pro-B Natriuret Pep Total Protein 5.8 L Albumin 2.6 L Arterial Blood Glucose Urine WBC (Auto) Urine Creatinine 01/05/20 01/06/20 01/06/20 16:04 00:23 04:44 WBC RBC 3.36 L Hgb 8.9 L Hct 28.7 L MCHC 31 L RDW 16.9 H MCV MCH 26 L Lymph % (Auto) [place] % (Auto) 9.4 H [place] # Eos # Lymph # (Auto) [place] # (Auto) Eos # (Auto) Seg Neutrophils % Seg Neuts % (Manual) Baso # (Auto) Lymphocytes % (Manual) Monocytes % (Manual) Eosinophils % (Manual) Basophils % (Manual) Seg Neutrophils # Seg Neutrophils # Man Lymphocytes # (Manual) Monocytes # (Manual) Eosinophils # (Manual) Nucleated RBC % Basophils # (Manual) PT INR APTT Heparin Anti-Xa Level ABG pH POC ABG pO2 ABG pO2 ABG HCO3 ABG O2 Saturation ABG Base Excess POC ABG pCO2 ABG Hemoglobin ABG Oxyhemoglobin ABG Glucose Oxyhemoglobin Sodium 151 H Potassium 3.2 L Chloride Carbon Dioxide 34 H BUN Creatinine 0.6 L Glucose POC Glucose 107 H Lactic Acid Calcium Phosphorus Magnesium AST ALT Lactate Dehydrogenase Total Bilirubin Direct Bilirubin CK-MB (CK-2) C-Reactive Protein NT-Pro-B Natriuret Pep Total Protein Albumin Arterial Blood Glucose Urine WBC (Auto) Urine Creatinine 01/06/20 01/06/20 01/06/20 04:44 05:33 12:04 WBC RBC Hgb Hct MCHC RDW MCV MCH Lymph % (Auto) [place] % (Auto) [place] # Eos # Lymph # (Auto) [place] # (Auto) Eos # (Auto) Seg Neutrophils % Seg Neuts % (Manual) Baso # (Auto) Lymphocytes % (Manual) Monocytes % (Manual) Eosinophils % (Manual) Basophils % (Manual) Seg Neutrophils # Seg Neutrophils # Man Lymphocytes # (Manual) Monocytes # (Manual) Eosinophils # (Manual) Nucleated RBC % Basophils # (Manual) PT INR APTT Heparin Anti-Xa Level ABG pH POC ABG pO2 ABG pO2 ABG HCO3 ABG O2 Saturation ABG Base Excess POC ABG pCO2 ABG Hemoglobin ABG Oxyhemoglobin ABG Glucose Oxyhemoglobin Sodium 151 H Potassium 3.4 L Chloride Carbon Dioxide 33 H BUN Creatinine 0.6 L Glucose 118 H POC Glucose 118 H 123 H Lactic Acid Calcium Phosphorus Magnesium AST ALT Lactate Dehydrogenase Total Bilirubin Direct Bilirubin CK-MB (CK-2) C-Reactive Protein NT-Pro-B Natriuret Pep Total Protein 6.2 L Albumin 2.6 L Arterial Blood Glucose Urine WBC (Auto) Urine Creatinine 01/06/20 01/07/20 01/07/20 17:54 00:06 04:10 WBC RBC 3.42 L Hgb 8.9 L Hct 29.0 L MCHC 31 L RDW 17.1 H MCV MCH 26 L Lymph % (Auto) [place] % (Auto) 8.4 H [place] # Eos # Lymph # (Auto) [place] # (Auto) Eos # (Auto) Seg Neutrophils % Seg Neuts % (Manual) Baso # (Auto) Lymphocytes % (Manual) Monocytes % (Manual) Eosinophils % (Manual) Basophils % (Manual) Seg Neutrophils # Seg Neutrophils # Man Lymphocytes # (Manual) Monocytes # (Manual) Eosinophils # (Manual) Nucleated RBC % Basophils # (Manual) PT INR APTT Heparin Anti-Xa Level ABG pH POC ABG pO2 ABG pO2 ABG HCO3 ABG O2 Saturation ABG Base Excess POC ABG pCO2 ABG Hemoglobin ABG Oxyhemoglobin ABG Glucose Oxyhemoglobin Sodium Potassium Chloride Carbon Dioxide BUN Creatinine Glucose POC Glucose 112 H 126 H Lactic Acid Calcium Phosphorus Magnesium AST ALT Lactate Dehydrogenase Total Bilirubin Direct Bilirubin CK-MB (CK-2) C-Reactive Protein NT-Pro-B Natriuret Pep Total Protein Albumin Arterial Blood Glucose Urine WBC (Auto) Urine Creatinine 01/07/20 01/07/20 01/07/20 04:10 05:59 12:27 WBC RBC Hgb Hct MCHC RDW MCV MCH Lymph % (Auto) [place] % (Auto) [place] # Eos # Lymph # (Auto) [place] # (Auto) Eos # (Auto) Seg Neutrophils % Seg Neuts % (Manual) Baso # (Auto) Lymphocytes % (Manual) Monocytes % (Manual) Eosinophils % (Manual) Basophils % (Manual) Seg Neutrophils # Seg Neutrophils # Man Lymphocytes # (Manual) Monocytes # (Manual) Eosinophils # (Manual) Nucleated RBC % Basophils # (Manual) PT INR APTT Heparin Anti-Xa Level ABG pH POC ABG pO2 ABG pO2 ABG HCO3 ABG O2 Saturation ABG Base Excess POC ABG pCO2 ABG Hemoglobin ABG Oxyhemoglobin ABG Glucose Oxyhemoglobin Sodium 153 H Potassium 3.5 L Chloride Carbon Dioxide 34 H BUN Creatinine 0.6 L Glucose 121 H POC Glucose 121 H 126 H Lactic Acid Calcium Phosphorus Magnesium AST ALT Lactate Dehydrogenase Total Bilirubin Direct Bilirubin CK-MB (CK-2) C-Reactive Protein NT-Pro-B Natriuret Pep Total Protein 5.9 L Albumin 2.4 L Arterial Blood Glucose Urine WBC (Auto) Urine Creatinine 01/07/20 01/08/20 01/08/20 18:12 00:03 05:41 WBC RBC Hgb Hct MCHC RDW MCV MCH Lymph % (Auto) [place] % (Auto) [place] # Eos # Lymph # (Auto) [place] # (Auto) Eos # (Auto) Seg Neutrophils % Seg Neuts % (Manual) Baso # (Auto) Lymphocytes % (Manual) Monocytes % (Manual) Eosinophils % (Manual) Basophils % (Manual) Seg Neutrophils # Seg Neutrophils # Man Lymphocytes # (Manual) Monocytes # (Manual) Eosinophils # (Manual) Nucleated RBC % Basophils # (Manual) PT INR APTT Heparin Anti-Xa Level ABG pH POC ABG pO2 ABG pO2 ABG HCO3 ABG O2 Saturation ABG Base Excess POC ABG pCO2 ABG Hemoglobin ABG Oxyhemoglobin ABG Glucose Oxyhemoglobin Sodium Potassium Chloride Carbon Dioxide BUN Creatinine Glucose POC Glucose 124 H 130 H 138 H Lactic Acid Calcium Phosphorus Magnesium AST ALT Lactate Dehydrogenase Total Bilirubin Direct Bilirubin CK-MB (CK-2) C-Reactive Protein NT-Pro-B Natriuret Pep Total Protein Albumin Arterial Blood Glucose Urine WBC (Auto) Urine Creatinine 01/08/20 01/08/20 01/08/20 09:28 11:42 18:21 WBC RBC Hgb Hct MCHC RDW MCV MCH Lymph % (Auto) [place] % (Auto) [place] # Eos # Lymph # (Auto) [place] # (Auto) Eos # (Auto) Seg Neutrophils % Seg Neuts % (Manual) Baso # (Auto) Lymphocytes % (Manual) Monocytes % (Manual) Eosinophils % (Manual) Basophils % (Manual) Seg Neutrophils # Seg Neutrophils # Man Lymphocytes # (Manual) Monocytes # (Manual) Eosinophils # (Manual) Nucleated RBC % Basophils # (Manual) PT INR APTT Heparin Anti-Xa Level ABG pH POC ABG pO2 ABG pO2 ABG HCO3 ABG O2 Saturation ABG Base Excess POC ABG pCO2 ABG Hemoglobin ABG Oxyhemoglobin ABG Glucose Oxyhemoglobin Sodium Potassium Chloride Carbon Dioxide BUN Creatinine Glucose POC Glucose 181 H 150 H 129 H Lactic Acid Calcium Phosphorus Magnesium AST ALT Lactate Dehydrogenase Total Bilirubin Direct Bilirubin CK-MB (CK-2) C-Reactive Protein NT-Pro-B Natriuret Pep Total Protein Albumin Arterial Blood Glucose Urine WBC (Auto) Urine Creatinine 01/08/20 01/08/20 01/09/20 19:25 23:55 04:11 WBC RBC 3.43 L Hgb 8.9 L Hct 28.7 L MCHC 31 L RDW 17.6 H MCV MCH 26 L Lymph % (Auto) [place] % (Auto) 8.6 H [place] # Eos # Lymph # (Auto) [place] # (Auto) Eos # (Auto) Seg Neutrophils % Seg Neuts % (Manual) Baso # (Auto) Lymphocytes % (Manual) Monocytes % (Manual) Eosinophils % (Manual) Basophils % (Manual) Seg Neutrophils # Seg Neutrophils # Man Lymphocytes # (Manual) Monocytes # (Manual) Eosinophils # (Manual) Nucleated RBC % Basophils # (Manual) PT INR APTT Heparin Anti-Xa Level ABG pH POC ABG pO2 ABG pO2 ABG HCO3 ABG O2 Saturation ABG Base Excess POC ABG pCO2 ABG Hemoglobin ABG Oxyhemoglobin ABG Glucose Oxyhemoglobin Sodium Potassium Chloride Carbon Dioxide BUN Creatinine 0.7 L Glucose 117 H POC Glucose 132 H Lactic Acid Calcium Phosphorus Magnesium AST ALT Lactate Dehydrogenase Total Bilirubin Direct Bilirubin CK-MB (CK-2) C-Reactive Protein NT-Pro-B Natriuret Pep Total Protein Albumin Arterial Blood Glucose Urine WBC (Auto) Urine Creatinine 01/09/20 01/09/20 01/09/20 04:11 05:38 22:58 WBC RBC Hgb Hct MCHC RDW MCV MCH Lymph % (Auto) [place] % (Auto) [place] # Eos # Lymph # (Auto) [place] # (Auto) Eos # (Auto) Seg Neutrophils % Seg Neuts % (Manual) Baso # (Auto) Lymphocytes % (Manual) Monocytes % (Manual) Eosinophils % (Manual) Basophils % (Manual) Seg Neutrophils # Seg Neutrophils # Man Lymphocytes # (Manual) Monocytes # (Manual) Eosinophils # (Manual) Nucleated RBC % Basophils # (Manual) PT INR APTT Heparin Anti-Xa Level ABG pH POC ABG pO2 ABG pO2 ABG HCO3 ABG O2 Saturation ABG Base Excess POC ABG pCO2 ABG Hemoglobin ABG Oxyhemoglobin ABG Glucose Oxyhemoglobin Sodium 147 H Potassium 3.3 L D Chloride Carbon Dioxide 32 H BUN Creatinine 0.6 L Glucose 106 H POC Glucose 107 H 113 H Lactic Acid Calcium Phosphorus Magnesium AST ALT Lactate Dehydrogenase Total Bilirubin Direct Bilirubin CK-MB (CK-2) C-Reactive Protein NT-Pro-B Natriuret Pep Total Protein Albumin Arterial Blood Glucose Urine WBC (Auto) Urine Creatinine 01/10/20 01/10/20 01/10/20 04:05 11:36 17:54 WBC RBC Hgb Hct MCHC RDW MCV MCH Lymph % (Auto) [place] % (Auto) [place] # Eos # Lymph # (Auto) [place] # (Auto) Eos # (Auto) Seg Neutrophils % Seg Neuts % (Manual) Baso # (Auto) Lymphocytes % (Manual) Monocytes % (Manual) Eosinophils % (Manual) Basophils % (Manual) Seg Neutrophils # Seg Neutrophils # Man Lymphocytes # (Manual) Monocytes # (Manual) Eosinophils # (Manual) Nucleated RBC % Basophils # (Manual) PT INR APTT Heparin Anti-Xa Level ABG pH POC ABG pO2 ABG pO2 ABG HCO3 ABG O2 Saturation ABG Base Excess POC ABG pCO2 ABG Hemoglobin ABG Oxyhemoglobin ABG Glucose Oxyhemoglobin Sodium Potassium Chloride Carbon Dioxide BUN Creatinine 0.7 L Glucose 110 H POC Glucose 129 H 117 H Lactic Acid Calcium Phosphorus Magnesium AST ALT Lactate Dehydrogenase Total Bilirubin Direct Bilirubin CK-MB (CK-2) C-Reactive Protein NT-Pro-B Natriuret Pep Total Protein Albumin Arterial Blood Glucose Urine WBC (Auto) Urine Creatinine 01/10/20 01/11/20 01/11/20 23:52 03:19 12:09 WBC RBC Hgb Hct MCHC RDW MCV MCH Lymph % (Auto) [place] % (Auto) [place] # Eos # Lymph # (Auto) [place] # (Auto) Eos # (Auto) Seg Neutrophils % Seg Neuts % (Manual) Baso # (Auto) Lymphocytes % (Manual) Monocytes % (Manual) Eosinophils % (Manual) Basophils % (Manual) Seg Neutrophils # Seg Neutrophils # Man Lymphocytes # (Manual) Monocytes # (Manual) Eosinophils # (Manual) Nucleated RBC % Basophils # (Manual) PT INR APTT Heparin Anti-Xa Level ABG pH POC ABG pO2 ABG pO2 ABG HCO3 ABG O2 Saturation ABG Base Excess POC ABG pCO2 ABG Hemoglobin ABG Oxyhemoglobin ABG Glucose Oxyhemoglobin Sodium Potassium Chloride Carbon Dioxide BUN Creatinine Glucose POC Glucose 117 H 136 H 115 H Lactic Acid Calcium Phosphorus Magnesium AST ALT Lactate Dehydrogenase Total Bilirubin Direct Bilirubin CK-MB (CK-2) C-Reactive Protein NT-Pro-B Natriuret Pep Total Protein Albumin Arterial Blood Glucose Urine WBC (Auto) Urine Creatinine 01/11/20 01/11/20 01/12/20 18:27 23:28 00:23 WBC RBC Hgb 9.8 L Hct 31.6 L MCHC 31 L RDW 17.8 H MCV 83 L MCH 26 L Lymph % (Auto) [place] % (Auto) 8.0 H [place] # Eos # Lymph # (Auto) [place] # (Auto) Eos # (Auto) Seg Neutrophils % Seg Neuts % (Manual) Baso # (Auto) Lymphocytes % (Manual) Monocytes % (Manual) Eosinophils % (Manual) Basophils % (Manual) Seg Neutrophils # Seg Neutrophils # Man Lymphocytes # (Manual) Monocytes # (Manual) Eosinophils # (Manual) Nucleated RBC % Basophils # (Manual) PT INR APTT Heparin Anti-Xa Level ABG pH POC ABG pO2 ABG pO2 ABG HCO3 ABG O2 Saturation ABG Base Excess POC ABG pCO2 ABG Hemoglobin ABG Oxyhemoglobin ABG Glucose Oxyhemoglobin Sodium Potassium Chloride Carbon Dioxide BUN Creatinine Glucose POC Glucose 118 H 122 H Lactic Acid Calcium Phosphorus Magnesium AST ALT Lactate Dehydrogenase Total Bilirubin Direct Bilirubin CK-MB (CK-2) C-Reactive Protein NT-Pro-B Natriuret Pep Total Protein Albumin Arterial Blood Glucose Urine WBC (Auto) Urine Creatinine 01/12/20 01/12/20 01/12/20 00:23 04:18 04:18 WBC RBC Hgb 9.6 L Hct 30.9 L MCHC 31 L RDW 17.3 H MCV 81 L MCH 25 L Lymph % (Auto) [place] % (Auto) [place] # Eos # Lymph # (Auto) [place] # (Auto) Eos # (Auto) Seg Neutrophils % Seg Neuts % (Manual) Baso # (Auto) Lymphocytes % (Manual) Monocytes % (Manual) Eosinophils % (Manual) Basophils % (Manual) Seg Neutrophils # Seg Neutrophils # Man Lymphocytes # (Manual) Monocytes # (Manual) Eosinophils # (Manual) Nucleated RBC % Basophils # (Manual) PT INR APTT Heparin Anti-Xa Level ABG pH POC ABG pO2 ABG pO2 ABG HCO3 ABG O2 Saturation ABG Base Excess POC ABG pCO2 ABG Hemoglobin ABG Oxyhemoglobin ABG Glucose Oxyhemoglobin Sodium Potassium Chloride Carbon Dioxide BUN Creatinine 0.7 L 0.7 L Glucose 111 H 108 H POC Glucose Lactic Acid Calcium Phosphorus Magnesium AST ALT Lactate Dehydrogenase Total Bilirubin Direct Bilirubin CK-MB (CK-2) C-Reactive Protein NT-Pro-B Natriuret Pep Total Protein Albumin 2.6 L Arterial Blood Glucose Urine WBC (Auto) Urine Creatinine 01/12/20 01/12/20 01/12/20 06:03 12:27 13:58 WBC RBC Hgb Hct MCHC RDW MCV MCH Lymph % (Auto) [place] % (Auto) [place] # Eos # Lymph # (Auto) [place] # (Auto) Eos # (Auto) Seg Neutrophils % Seg Neuts % (Manual) Baso # (Auto) Lymphocytes % (Manual) Monocytes % (Manual) Eosinophils % (Manual) Basophils % (Manual) Seg Neutrophils # Seg Neutrophils # Man Lymphocytes # (Manual) Monocytes # (Manual) Eosinophils # (Manual) Nucleated RBC % Basophils # (Manual) PT INR APTT Heparin Anti-Xa Level ABG pH 7.453 H POC ABG pO2 76.6 L ABG pO2 ABG HCO3 ABG O2 Saturation ABG Base Excess POC ABG pCO2 ABG Hemoglobin 10.3 L ABG Oxyhemoglobin ABG Glucose 99 H Oxyhemoglobin Sodium Potassium Chloride Carbon Dioxide BUN Creatinine Glucose POC Glucose 128 H 121 H Lactic Acid Calcium Phosphorus Magnesium AST ALT Lactate Dehydrogenase Total Bilirubin Direct Bilirubin CK-MB (CK-2) C-Reactive Protein NT-Pro-B Natriuret Pep Total Protein Albumin Arterial Blood Glucose 99 H Urine WBC (Auto) Urine Creatinine 01/12/20 01/13/20 01/13/20 18:24 12:01 17:46 WBC RBC Hgb Hct MCHC RDW MCV MCH Lymph % (Auto) [place] % (Auto) [place] # Eos # Lymph # (Auto) [place] # (Auto) Eos # (Auto) Seg Neutrophils % Seg Neuts % (Manual) Baso # (Auto) Lymphocytes % (Manual) Monocytes % (Manual) Eosinophils % (Manual) Basophils % (Manual) Seg Neutrophils # Seg Neutrophils # Man Lymphocytes # (Manual) Monocytes # (Manual) Eosinophils # (Manual) Nucleated RBC % Basophils # (Manual) PT INR APTT Heparin Anti-Xa Level ABG pH POC ABG pO2 ABG pO2 ABG HCO3 ABG O2 Saturation ABG Base Excess POC ABG pCO2 ABG Hemoglobin ABG Oxyhemoglobin ABG Glucose Oxyhemoglobin Sodium Potassium Chloride Carbon Dioxide BUN Creatinine Glucose POC Glucose 119 H 107 H 124 H Lactic Acid Calcium Phosphorus Magnesium AST ALT Lactate Dehydrogenase Total Bilirubin Direct Bilirubin CK-MB (CK-2) C-Reactive Protein NT-Pro-B Natriuret Pep Total Protein Albumin Arterial Blood Glucose Urine WBC (Auto) Urine Creatinine 01/13/20 01/14/20 01/14/20 20:40 00:10 05:33 WBC RBC Hgb Hct MCHC RDW MCV MCH Lymph % (Auto) [place] % (Auto) [place] # Eos # Lymph # (Auto) [place] # (Auto) Eos # (Auto) Seg Neutrophils % Seg Neuts % (Manual) Baso # (Auto) Lymphocytes % (Manual) Monocytes % (Manual) Eosinophils % (Manual) Basophils % (Manual) Seg Neutrophils # Seg Neutrophils # Man Lymphocytes # (Manual) Monocytes # (Manual) Eosinophils # (Manual) Nucleated RBC % Basophils # (Manual) PT INR APTT Heparin Anti-Xa Level ABG pH POC ABG pO2 ABG pO2 65.3 L ABG HCO3 31.8 H ABG O2 Saturation 93.5 L ABG Base Excess 6.7 H POC ABG pCO2 ABG Hemoglobin 13.3 L ABG Oxyhemoglobin ABG Glucose Oxyhemoglobin 90.9 L Sodium Potassium Chloride Carbon Dioxide BUN Creatinine Glucose POC Glucose 111 H 111 H Lactic Acid Calcium Phosphorus Magnesium AST ALT Lactate Dehydrogenase Total Bilirubin Direct Bilirubin CK-MB (CK-2) C-Reactive Protein NT-Pro-B Natriuret Pep Total Protein Albumin Arterial Blood Glucose Urine WBC (Auto) Urine Creatinine 01/14/20 01/14/20 01/14/20 12:10 16:14 16:14 WBC RBC Hgb 10.6 L Hct 34.2 L MCHC 31 L RDW 18.3 H MCV 83 L MCH 26 L Lymph % (Auto) [place] % (Auto) 7.4 H [place] # Eos # Lymph # (Auto) [place] # (Auto) Eos # (Auto) Seg Neutrophils % 71.9 H Seg Neuts % (Manual) Baso # (Auto) Lymphocytes % (Manual) Monocytes % (Manual) Eosinophils % (Manual) Basophils % (Manual) Seg Neutrophils # Seg Neutrophils # Man Lymphocytes # (Manual) Monocytes # (Manual) Eosinophils # (Manual) Nucleated RBC % Basophils # (Manual) PT INR APTT Heparin Anti-Xa Level ABG pH POC ABG pO2 ABG pO2 ABG HCO3 ABG O2 Saturation ABG Base Excess POC ABG pCO2 ABG Hemoglobin ABG Oxyhemoglobin ABG Glucose Oxyhemoglobin Sodium Potassium Chloride Carbon Dioxide 31 H BUN Creatinine 0.6 L Glucose 131 H POC Glucose 139 H Lactic Acid Calcium Phosphorus Magnesium AST ALT Lactate Dehydrogenase Total Bilirubin Direct Bilirubin CK-MB (CK-2) C-Reactive Protein NT-Pro-B Natriuret Pep Total Protein Albumin Arterial Blood Glucose Urine WBC (Auto) Urine Creatinine 01/14/20 01/15/20 01/15/20 18:05 00:52 05:35 WBC RBC Hgb Hct MCHC RDW MCV MCH Lymph % (Auto) [place] % (Auto) [place] # Eos # Lymph # (Auto) [place] # (Auto) Eos # (Auto) Seg Neutrophils % Seg Neuts % (Manual) Baso # (Auto) Lymphocytes % (Manual) Monocytes % (Manual) Eosinophils % (Manual) Basophils % (Manual) Seg Neutrophils # Seg Neutrophils # Man Lymphocytes # (Manual) Monocytes # (Manual) Eosinophils # (Manual) Nucleated RBC % Basophils # (Manual) PT INR APTT Heparin Anti-Xa Level ABG pH POC ABG pO2 ABG pO2 ABG HCO3 ABG O2 Saturation ABG Base Excess POC ABG pCO2 ABG Hemoglobin ABG Oxyhemoglobin ABG Glucose Oxyhemoglobin Sodium Potassium Chloride Carbon Dioxide BUN Creatinine Glucose POC Glucose 147 H 140 H 159 H Lactic Acid Calcium Phosphorus Magnesium AST ALT Lactate Dehydrogenase Total Bilirubin Direct Bilirubin CK-MB (CK-2) C-Reactive Protein NT-Pro-B Natriuret Pep Total Protein Albumin Arterial Blood Glucose Urine WBC (Auto) Urine Creatinine 01/15/20 01/15/20 01/16/20 12:52 17:43 00:32 WBC RBC Hgb Hct MCHC RDW MCV MCH Lymph % (Auto) [place] % (Auto) [place] # Eos # Lymph # (Auto) [place] # (Auto) Eos # (Auto) Seg Neutrophils % Seg Neuts % (Manual) Baso # (Auto) Lymphocytes % (Manual) Monocytes % (Manual) Eosinophils % (Manual) Basophils % (Manual) Seg Neutrophils # Seg Neutrophils # Man Lymphocytes # (Manual) Monocytes # (Manual) Eosinophils # (Manual) Nucleated RBC % Basophils # (Manual) PT INR APTT Heparin Anti-Xa Level ABG pH POC ABG pO2 ABG pO2 ABG HCO3 ABG O2 Saturation ABG Base Excess POC ABG pCO2 ABG Hemoglobin ABG Oxyhemoglobin ABG Glucose Oxyhemoglobin Sodium Potassium Chloride Carbon Dioxide BUN Creatinine Glucose POC Glucose 164 H 167 H 153 H Lactic Acid Calcium Phosphorus Magnesium AST ALT Lactate Dehydrogenase Total Bilirubin Direct Bilirubin CK-MB (CK-2) C-Reactive Protein NT-Pro-B Natriuret Pep Total Protein Albumin Arterial Blood Glucose Urine WBC (Auto) Urine Creatinine 01/16/20 01/16/20 01/17/20 05:46 11:48 06:38 WBC RBC Hgb Hct MCHC RDW MCV MCH Lymph % (Auto) [place] % (Auto) [place] # Eos # Lymph # (Auto) [place] # (Auto) Eos # (Auto) Seg Neutrophils % Seg Neuts % (Manual) Baso # (Auto) Lymphocytes % (Manual) Monocytes % (Manual) Eosinophils % (Manual) Basophils % (Manual) Seg Neutrophils # Seg Neutrophils # Man Lymphocytes # (Manual) Monocytes # (Manual) Eosinophils # (Manual) Nucleated RBC % Basophils # (Manual) PT INR APTT Heparin Anti-Xa Level ABG pH POC ABG pO2 ABG pO2 ABG HCO3 ABG O2 Saturation ABG Base Excess POC ABG pCO2 ABG Hemoglobin ABG Oxyhemoglobin ABG Glucose Oxyhemoglobin Sodium Potassium Chloride Carbon Dioxide BUN Creatinine Glucose POC Glucose 163 H 155 H 116 H Lactic Acid Calcium Phosphorus Magnesium AST ALT Lactate Dehydrogenase Total Bilirubin Direct Bilirubin CK-MB (CK-2) C-Reactive Protein NT-Pro-B Natriuret Pep Total Protein Albumin Arterial Blood Glucose Urine WBC (Auto) Urine Creatinine 01/17/20 01/17/20 01/18/20 11:36 17:43 00:12 WBC RBC Hgb Hct MCHC RDW MCV MCH Lymph % (Auto) [place] % (Auto) [place] # Eos # Lymph # (Auto) [place] # (Auto) Eos # (Auto) Seg Neutrophils % Seg Neuts % (Manual) Baso # (Auto) Lymphocytes % (Manual) Monocytes % (Manual) Eosinophils % (Manual) Basophils % (Manual) Seg Neutrophils # Seg Neutrophils # Man Lymphocytes # (Manual) Monocytes # (Manual) Eosinophils # (Manual) Nucleated RBC % Basophils # (Manual) PT INR APTT Heparin Anti-Xa Level ABG pH POC ABG pO2 ABG pO2 ABG HCO3 ABG O2 Saturation ABG Base Excess POC ABG pCO2 ABG Hemoglobin ABG Oxyhemoglobin ABG Glucose Oxyhemoglobin Sodium Potassium Chloride Carbon Dioxide BUN Creatinine Glucose POC Glucose 110 H 134 H 108 H Lactic Acid Calcium Phosphorus Magnesium AST ALT Lactate Dehydrogenase Total Bilirubin Direct Bilirubin CK-MB (CK-2) C-Reactive Protein NT-Pro-B Natriuret Pep Total Protein Albumin Arterial Blood Glucose Urine WBC (Auto) Urine Creatinine 01/18/20 01/18/20 01/18/20 05:37 06:46 06:46 WBC RBC Hgb 10.1 L Hct 32.2 L MCHC 31 L RDW 18.1 H MCV 81 L MCH 25 L Lymph % (Auto) [place] % (Auto) [place] # Eos # Lymph # (Auto) [place] # (Auto) Eos # (Auto) Seg Neutrophils % 71.9 H Seg Neuts % (Manual) Baso # (Auto) Lymphocytes % (Manual) Monocytes % (Manual) Eosinophils % (Manual) Basophils % (Manual) Seg Neutrophils # Seg Neutrophils # Man Lymphocytes # (Manual) Monocytes # (Manual) Eosinophils # (Manual) Nucleated RBC % Basophils # (Manual) PT INR APTT Heparin Anti-Xa Level ABG pH POC ABG pO2 ABG pO2 ABG HCO3 ABG O2 Saturation ABG Base Excess POC ABG pCO2 ABG Hemoglobin ABG Oxyhemoglobin ABG Glucose Oxyhemoglobin Sodium Potassium Chloride Carbon Dioxide BUN Creatinine 0.7 L Glucose 155 H POC Glucose 168 H Lactic Acid Calcium Phosphorus Magnesium AST ALT Lactate Dehydrogenase Total Bilirubin Direct Bilirubin CK-MB (CK-2) C-Reactive Protein NT-Pro-B Natriuret Pep Total Protein Albumin Arterial Blood Glucose Urine WBC (Auto) Urine Creatinine 01/18/20 01/18/20 01/18/20 12:05 17:14 23:28 WBC RBC Hgb Hct MCHC RDW MCV MCH Lymph % (Auto) [place] % (Auto) [place] # Eos # Lymph # (Auto) [place] # (Auto) Eos # (Auto) Seg Neutrophils % Seg Neuts % (Manual) Baso # (Auto) Lymphocytes % (Manual) Monocytes % (Manual) Eosinophils % (Manual) Basophils % (Manual) Seg Neutrophils # Seg Neutrophils # Man Lymphocytes # (Manual) Monocytes # (Manual) Eosinophils # (Manual) Nucleated RBC % Basophils # (Manual) PT INR APTT Heparin Anti-Xa Level ABG pH POC ABG pO2 ABG pO2 ABG HCO3 ABG O2 Saturation ABG Base Excess POC ABG pCO2 ABG Hemoglobin ABG Oxyhemoglobin ABG Glucose Oxyhemoglobin Sodium Potassium Chloride Carbon Dioxide BUN Creatinine Glucose POC Glucose 128 H 126 H 128 H Lactic Acid Calcium Phosphorus Magnesium AST ALT Lactate Dehydrogenase Total Bilirubin Direct Bilirubin CK-MB (CK-2) C-Reactive Protein NT-Pro-B Natriuret Pep Total Protein Albumin Arterial Blood Glucose Urine WBC (Auto) Urine Creatinine 01/19/20 01/19/20 01/19/20 05:39 12:33 17:36 WBC RBC Hgb Hct MCHC RDW MCV MCH Lymph % (Auto) [place] % (Auto) [place] # Eos # Lymph # (Auto) [place] # (Auto) Eos # (Auto) Seg Neutrophils % Seg Neuts % (Manual) Baso # (Auto) Lymphocytes % (Manual) Monocytes % (Manual) Eosinophils % (Manual) Basophils % (Manual) Seg Neutrophils # Seg Neutrophils # Man Lymphocytes # (Manual) Monocytes # (Manual) Eosinophils # (Manual) Nucleated RBC % Basophils # (Manual) PT INR APTT Heparin Anti-Xa Level ABG pH POC ABG pO2 ABG pO2 ABG HCO3 ABG O2 Saturation ABG Base Excess POC ABG pCO2 ABG Hemoglobin ABG Oxyhemoglobin ABG Glucose Oxyhemoglobin Sodium Potassium Chloride Carbon Dioxide BUN Creatinine Glucose POC Glucose 164 H 171 H 152 H Lactic Acid Calcium Phosphorus Magnesium AST ALT Lactate Dehydrogenase Total Bilirubin Direct Bilirubin CK-MB (CK-2) C-Reactive Protein NT-Pro-B Natriuret Pep Total Protein Albumin Arterial Blood Glucose Urine WBC (Auto) Urine Creatinine 01/20/20 01/20/20 01/20/20 00:12 05:20 05:35 WBC RBC Hgb 9.2 L Hct 29.4 L MCHC 31 L RDW 17.9 H MCV 81 L MCH 25 L Lymph % (Auto) [place] % (Auto) [place] # Eos # Lymph # (Auto) [place] # (Auto) Eos # (Auto) Seg Neutrophils % Seg Neuts % (Manual) Baso # (Auto) Lymphocytes % (Manual) Monocytes % (Manual) Eosinophils % (Manual) Basophils % (Manual) Seg Neutrophils # Seg Neutrophils # Man Lymphocytes # (Manual) Monocytes # (Manual) Eosinophils # (Manual) Nucleated RBC % Basophils # (Manual) PT INR APTT Heparin Anti-Xa Level ABG pH POC ABG pO2 ABG pO2 ABG HCO3 ABG O2 Saturation ABG Base Excess POC ABG pCO2 ABG Hemoglobin ABG Oxyhemoglobin ABG Glucose Oxyhemoglobin Sodium Potassium Chloride Carbon Dioxide BUN Creatinine Glucose POC Glucose 120 H 136 H Lactic Acid Calcium Phosphorus Magnesium AST ALT Lactate Dehydrogenase Total Bilirubin Direct Bilirubin CK-MB (CK-2) C-Reactive Protein NT-Pro-B Natriuret Pep Total Protein Albumin Arterial Blood Glucose Urine WBC (Auto) Urine Creatinine 01/20/20 01/20/20 01/20/20 05:40 11:58 14:55 WBC RBC Hgb 9.0 L Hct 28.3 L MCHC RDW MCV MCH Lymph % (Auto) [place] % (Auto) [place] # Eos # Lymph # (Auto) [place] # (Auto) Eos # (Auto) Seg Neutrophils % Seg Neuts % (Manual) Baso # (Auto) Lymphocytes % (Manual) Monocytes % (Manual) Eosinophils % (Manual) Basophils % (Manual) Seg Neutrophils # Seg Neutrophils # Man Lymphocytes # (Manual) Monocytes # (Manual) Eosinophils # (Manual) Nucleated RBC % Basophils # (Manual) PT INR APTT Heparin Anti-Xa Level ABG pH POC ABG pO2 ABG pO2 ABG HCO3 ABG O2 Saturation ABG Base Excess POC ABG pCO2 ABG Hemoglobin ABG Oxyhemoglobin ABG Glucose Oxyhemoglobin Sodium Potassium Chloride Carbon Dioxide 32 H BUN 22 H Creatinine 0.7 L Glucose 128 H POC Glucose 152 H Lactic Acid Calcium Phosphorus Magnesium AST ALT Lactate Dehydrogenase Total Bilirubin Direct Bilirubin CK-MB (CK-2) C-Reactive Protein NT-Pro-B Natriuret Pep Total Protein Albumin Arterial Blood Glucose Urine WBC (Auto) Urine Creatinine 01/20/20 01/20/20 01/20/20 14:55 18:14 21:35 WBC RBC Hgb Hct MCHC RDW MCV MCH Lymph % (Auto) [place] % (Auto) [place] # Eos # Lymph # (Auto) [place] # (Auto) Eos # (Auto) Seg Neutrophils % Seg Neuts % (Manual) Baso # (Auto) Lymphocytes % (Manual) Monocytes % (Manual) Eosinophils % (Manual) Basophils % (Manual) Seg Neutrophils # Seg Neutrophils # Man Lymphocytes # (Manual) Monocytes # (Manual) Eosinophils # (Manual) Nucleated RBC % Basophils # (Manual) PT 20.4 H INR 1.72 H APTT 40.6 H Heparin Anti-Xa Level > 2.00 H ABG pH POC ABG pO2 ABG pO2 ABG HCO3 ABG O2 Saturation ABG Base Excess POC ABG pCO2 ABG Hemoglobin ABG Oxyhemoglobin ABG Glucose Oxyhemoglobin Sodium Potassium Chloride Carbon Dioxide BUN Creatinine Glucose POC Glucose 150 H Lactic Acid Calcium Phosphorus Magnesium AST ALT Lactate Dehydrogenase Total Bilirubin Direct Bilirubin CK-MB (CK-2) C-Reactive Protein NT-Pro-B Natriuret Pep Total Protein Albumin Arterial Blood Glucose Urine WBC (Auto) Urine Creatinine 01/21/20 01/21/20 01/21/20 00:30 05:47 05:59 WBC RBC Hgb Hct MCHC RDW MCV MCH Lymph % (Auto) [place] % (Auto) [place] # Eos # Lymph # (Auto) [place] # (Auto) Eos # (Auto) Seg Neutrophils % Seg Neuts % (Manual) Baso # (Auto) Lymphocytes % (Manual) Monocytes % (Manual) Eosinophils % (Manual) Basophils % (Manual) Seg Neutrophils # Seg Neutrophils # Man Lymphocytes # (Manual) Monocytes # (Manual) Eosinophils # (Manual) Nucleated RBC % Basophils # (Manual) PT INR APTT Heparin Anti-Xa Level 1.93 H ABG pH POC ABG pO2 ABG pO2 ABG HCO3 ABG O2 Saturation ABG Base Excess POC ABG pCO2 ABG Hemoglobin ABG Oxyhemoglobin ABG Glucose Oxyhemoglobin Sodium Potassium Chloride Carbon Dioxide BUN Creatinine Glucose POC Glucose 126 H 148 H Lactic Acid Calcium Phosphorus Magnesium AST ALT Lactate Dehydrogenase Total Bilirubin Direct Bilirubin CK-MB (CK-2) C-Reactive Protein NT-Pro-B Natriuret Pep Total Protein Albumin Arterial Blood Glucose Urine WBC (Auto) Urine Creatinine 01/21/20 01/21/20 01/21/20 12:32 18:20 23:54 WBC RBC Hgb Hct MCHC RDW MCV MCH Lymph % (Auto) [place] % (Auto) [place] # Eos # Lymph # (Auto) [place] # (Auto) Eos # (Auto) Seg Neutrophils % Seg Neuts % (Manual) Baso # (Auto) Lymphocytes % (Manual) Monocytes % (Manual) Eosinophils % (Manual) Basophils % (Manual) Seg Neutrophils # Seg Neutrophils # Man Lymphocytes # (Manual) Monocytes # (Manual) Eosinophils # (Manual) Nucleated RBC % Basophils # (Manual) PT INR APTT Heparin Anti-Xa Level 1.28 H ABG pH POC ABG pO2 ABG pO2 ABG HCO3 ABG O2 Saturation ABG Base Excess POC ABG pCO2 ABG Hemoglobin ABG Oxyhemoglobin ABG Glucose Oxyhemoglobin Sodium Potassium Chloride Carbon Dioxide BUN Creatinine Glucose POC Glucose 112 H 146 H Lactic Acid Calcium Phosphorus Magnesium AST ALT Lactate Dehydrogenase Total Bilirubin Direct Bilirubin CK-MB (CK-2) C-Reactive Protein NT-Pro-B Natriuret Pep Total Protein Albumin Arterial Blood Glucose Urine WBC (Auto) Urine Creatinine 01/22/20 01/22/20 01/22/20 04:45 04:45 05:48 WBC RBC Hgb 9.3 L Hct 29.0 L MCHC RDW MCV MCH Lymph % (Auto) [place] % (Auto) [place] # Eos # Lymph # (Auto) [place] # (Auto) Eos # (Auto) Seg Neutrophils % Seg Neuts % (Manual) Baso # (Auto) Lymphocytes % (Manual) Monocytes % (Manual) Eosinophils % (Manual) Basophils % (Manual) Seg Neutrophils # Seg Neutrophils # Man Lymphocytes # (Manual) Monocytes # (Manual) Eosinophils # (Manual) Nucleated RBC % Basophils # (Manual) PT INR APTT Heparin Anti-Xa Level 1.34 H ABG pH POC ABG pO2 ABG pO2 ABG HCO3 ABG O2 Saturation ABG Base Excess POC ABG pCO2 ABG Hemoglobin ABG Oxyhemoglobin ABG Glucose Oxyhemoglobin Sodium Potassium Chloride Carbon Dioxide BUN Creatinine Glucose POC Glucose 142 H Lactic Acid Calcium Phosphorus Magnesium AST ALT Lactate Dehydrogenase Total Bilirubin Direct Bilirubin CK-MB (CK-2) C-Reactive Protein NT-Pro-B Natriuret Pep Total Protein Albumin Arterial Blood Glucose Urine WBC (Auto) Urine Creatinine 01/22/20 01/22/20 01/22/20 08:09 08:22 09:58 WBC RBC Hgb Hct MCHC RDW MCV MCH Lymph % (Auto) [place] % (Auto) [place] # Eos # Lymph # (Auto) [place] # (Auto) Eos # (Auto) Seg Neutrophils % Seg Neuts % (Manual) Baso # (Auto) Lymphocytes % (Manual) Monocytes % (Manual) Eosinophils % (Manual) Basophils % (Manual) Seg Neutrophils # Seg Neutrophils # Man Lymphocytes # (Manual) Monocytes # (Manual) Eosinophils # (Manual) Nucleated RBC % Basophils # (Manual) PT 16.9 H INR 1.34 H APTT Heparin Anti-Xa Level ABG pH POC ABG pO2 ABG pO2 ABG HCO3 ABG O2 Saturation ABG Base Excess POC ABG pCO2 ABG Hemoglobin ABG Oxyhemoglobin ABG Glucose Oxyhemoglobin Sodium Potassium Chloride 97.8 L Carbon Dioxide BUN 29 H Creatinine Glucose 128 H POC Glucose 131 H Lactic Acid Calcium Phosphorus Magnesium AST ALT Lactate Dehydrogenase Total Bilirubin Direct Bilirubin CK-MB (CK-2) C-Reactive Protein NT-Pro-B Natriuret Pep Total Protein Albumin Arterial Blood Glucose Urine WBC (Auto) Urine Creatinine 01/22/20 01/22/20 01/22/20 12:44 16:13 18:18 WBC RBC Hgb Hct MCHC RDW MCV MCH Lymph % (Auto) [place] % (Auto) [place] # Eos # Lymph # (Auto) [place] # (Auto) Eos # (Auto) Seg Neutrophils % Seg Neuts % (Manual) Baso # (Auto) Lymphocytes % (Manual) Monocytes % (Manual) Eosinophils % (Manual) Basophils % (Manual) Seg Neutrophils # Seg Neutrophils # Man Lymphocytes # (Manual) Monocytes # (Manual) Eosinophils # (Manual) Nucleated RBC % Basophils # (Manual) PT INR APTT Heparin Anti-Xa Level ABG pH POC ABG pO2 ABG pO2 ABG HCO3 ABG O2 Saturation ABG Base Excess POC ABG pCO2 ABG Hemoglobin ABG Oxyhemoglobin ABG Glucose Oxyhemoglobin Sodium Potassium Chloride Carbon Dioxide BUN Creatinine Glucose POC Glucose 156 H 133 H 155 H Lactic Acid Calcium Phosphorus Magnesium AST ALT Lactate Dehydrogenase Total Bilirubin Direct Bilirubin CK-MB (CK-2) C-Reactive Protein NT-Pro-B Natriuret Pep Total Protein Albumin Arterial Blood Glucose Urine WBC (Auto) Urine Creatinine 01/22/20 01/23/20 01/23/20 23:22 05:37 12:59 WBC RBC Hgb Hct MCHC RDW MCV MCH Lymph % (Auto) [place] % (Auto) [place] # Eos # Lymph # (Auto) [place] # (Auto) Eos # (Auto) Seg Neutrophils % Seg Neuts % (Manual) Baso # (Auto) Lymphocytes % (Manual) Monocytes % (Manual) Eosinophils % (Manual) Basophils % (Manual) Seg Neutrophils # Seg Neutrophils # Man Lymphocytes # (Manual) Monocytes # (Manual) Eosinophils # (Manual) Nucleated RBC % Basophils # (Manual) PT INR APTT Heparin Anti-Xa Level ABG pH POC ABG pO2 ABG pO2 ABG HCO3 ABG O2 Saturation ABG Base Excess POC ABG pCO2 ABG Hemoglobin ABG Oxyhemoglobin ABG Glucose Oxyhemoglobin Sodium Potassium Chloride Carbon Dioxide BUN Creatinine Glucose POC Glucose 148 H 163 H 175 H Lactic Acid Calcium Phosphorus Magnesium AST ALT Lactate Dehydrogenase Total Bilirubin Direct Bilirubin CK-MB (CK-2) C-Reactive Protein NT-Pro-B Natriuret Pep Total Protein Albumin Arterial Blood Glucose Urine WBC (Auto) Urine Creatinine 01/23/20 01/23/20 01/24/20 17:28 23:56 04:30 WBC RBC 3.46 L Hgb 8.8 L Hct 27.8 L MCHC RDW 18.2 H MCV 81 L MCH 25 L Lymph % (Auto) [place] % (Auto) 7.8 H [place] # Eos # Lymph # (Auto) [place] # (Auto) Eos # (Auto) Seg Neutrophils % Seg Neuts % (Manual) Baso # (Auto) Lymphocytes % (Manual) Monocytes % (Manual) Eosinophils % (Manual) Basophils % (Manual) Seg Neutrophils # Seg Neutrophils # Man Lymphocytes # (Manual) Monocytes # (Manual) Eosinophils # (Manual) Nucleated RBC % Basophils # (Manual) PT INR APTT Heparin Anti-Xa Level ABG pH POC ABG pO2 ABG pO2 ABG HCO3 ABG O2 Saturation ABG Base Excess POC ABG pCO2 ABG Hemoglobin ABG Oxyhemoglobin ABG Glucose Oxyhemoglobin Sodium Potassium Chloride Carbon Dioxide BUN Creatinine Glucose POC Glucose 165 H 177 H Lactic Acid Calcium Phosphorus Magnesium AST ALT Lactate Dehydrogenase Total Bilirubin Direct Bilirubin CK-MB (CK-2) C-Reactive Protein NT-Pro-B Natriuret Pep Total Protein Albumin Arterial Blood Glucose Urine WBC (Auto) Urine Creatinine 01/24/20 01/24/20 01/24/20 04:30 07:18 12:06 WBC RBC Hgb Hct MCHC RDW MCV MCH Lymph % (Auto) [place] % (Auto) [place] # Eos # Lymph # (Auto) [place] # (Auto) Eos # (Auto) Seg Neutrophils % Seg Neuts % (Manual) Baso # (Auto) Lymphocytes % (Manual) Monocytes % (Manual) Eosinophils % (Manual) Basophils % (Manual) Seg Neutrophils # Seg Neutrophils # Man Lymphocytes # (Manual) Monocytes # (Manual) Eosinophils # (Manual) Nucleated RBC % Basophils # (Manual) PT INR APTT Heparin Anti-Xa Level ABG pH POC ABG pO2 ABG pO2 ABG HCO3 ABG O2 Saturation ABG Base Excess POC ABG pCO2 ABG Hemoglobin ABG Oxyhemoglobin ABG Glucose Oxyhemoglobin Sodium Potassium Chloride 97.9 L Carbon Dioxide BUN 31 H Creatinine Glucose 146 H POC Glucose 151 H 133 H Lactic Acid Calcium Phosphorus Magnesium AST ALT Lactate Dehydrogenase Total Bilirubin Direct Bilirubin CK-MB (CK-2) C-Reactive Protein NT-Pro-B Natriuret Pep Total Protein Albumin Arterial Blood Glucose Urine WBC (Auto) Urine Creatinine 01/24/20 01/25/20 01/25/20 17:36 00:08 04:25 WBC RBC 3.50 L Hgb 8.7 L Hct 27.9 L MCHC 31 L RDW 18.2 H MCV 80 L MCH 25 L Lymph % (Auto) [place] % (Auto) 8.5 H [place] # Eos # Lymph # (Auto) [place] # (Auto) Eos # (Auto) Seg Neutrophils % Seg Neuts % (Manual) Baso # (Auto) Lymphocytes % (Manual) Monocytes % (Manual) Eosinophils % (Manual) Basophils % (Manual) Seg Neutrophils # Seg Neutrophils # Man Lymphocytes # (Manual) Monocytes # (Manual) Eosinophils # (Manual) Nucleated RBC % Basophils # (Manual) PT INR APTT Heparin Anti-Xa Level ABG pH POC ABG pO2 ABG pO2 ABG HCO3 ABG O2 Saturation ABG Base Excess POC ABG pCO2 ABG Hemoglobin ABG Oxyhemoglobin ABG Glucose Oxyhemoglobin Sodium Potassium Chloride Carbon Dioxide BUN Creatinine Glucose POC Glucose 133 H 129 H Lactic Acid Calcium Phosphorus Magnesium AST ALT Lactate Dehydrogenase Total Bilirubin Direct Bilirubin CK-MB (CK-2) C-Reactive Protein NT-Pro-B Natriuret Pep Total Protein Albumin Arterial Blood Glucose Urine WBC (Auto) Urine Creatinine 01/25/20 01/25/20 01/25/20 04:25 05:38 11:52 WBC RBC Hgb Hct MCHC RDW MCV MCH Lymph % (Auto) [place] % (Auto) [place] # Eos # Lymph # (Auto) [place] # (Auto) Eos # (Auto) Seg Neutrophils % Seg Neuts % (Manual) Baso # (Auto) Lymphocytes % (Manual) Monocytes % (Manual) Eosinophils % (Manual) Basophils % (Manual) Seg Neutrophils # Seg Neutrophils # Man Lymphocytes # (Manual) Monocytes # (Manual) Eosinophils # (Manual) Nucleated RBC % Basophils # (Manual) PT INR APTT Heparin Anti-Xa Level ABG pH POC ABG pO2 ABG pO2 ABG HCO3 ABG O2 Saturation ABG Base Excess POC ABG pCO2 ABG Hemoglobin ABG Oxyhemoglobin ABG Glucose Oxyhemoglobin Sodium Potassium Chloride Carbon Dioxide BUN 30 H Creatinine Glucose 134 H POC Glucose 129 H 134 H Lactic Acid Calcium Phosphorus Magnesium AST ALT Lactate Dehydrogenase Total Bilirubin Direct Bilirubin CK-MB (CK-2) C-Reactive Protein NT-Pro-B Natriuret Pep Total Protein Albumin Arterial Blood Glucose Urine WBC (Auto) Urine Creatinine 01/25/20 01/25/20 01/26/20 17:13 21:02 00:59 WBC RBC Hgb Hct MCHC RDW MCV MCH Lymph % (Auto) [place] % (Auto) [place] # Eos # Lymph # (Auto) [place] # (Auto) Eos # (Auto) Seg Neutrophils % Seg Neuts % (Manual) Baso # (Auto) Lymphocytes % (Manual) Monocytes % (Manual) Eosinophils % (Manual) Basophils % (Manual) Seg Neutrophils # Seg Neutrophils # Man Lymphocytes # (Manual) Monocytes # (Manual) Eosinophils # (Manual) Nucleated RBC % Basophils # (Manual) PT INR APTT Heparin Anti-Xa Level ABG pH POC ABG pO2 ABG pO2 57.5 L ABG HCO3 31.7 H ABG O2 Saturation 90.3 L ABG Base Excess 6.6 H POC ABG pCO2 ABG Hemoglobin 13.0 L ABG Oxyhemoglobin ABG Glucose Oxyhemoglobin 87.5 L Sodium Potassium Chloride Carbon Dioxide BUN Creatinine Glucose POC Glucose 124 H 196 H Lactic Acid Calcium Phosphorus Magnesium AST ALT Lactate Dehydrogenase Total Bilirubin Direct Bilirubin CK-MB (CK-2) C-Reactive Protein NT-Pro-B Natriuret Pep Total Protein Albumin Arterial Blood Glucose Urine WBC (Auto) Urine Creatinine 01/26/20 01/26/20 01/26/20 03:20 05:46 12:46 WBC RBC Hgb 9.2 L Hct 29.4 L MCHC RDW MCV MCH Lymph % (Auto) [place] % (Auto) [place] # Eos # Lymph # (Auto) [place] # (Auto) Eos # (Auto) Seg Neutrophils % Seg Neuts % (Manual) Baso # (Auto) Lymphocytes % (Manual) Monocytes % (Manual) Eosinophils % (Manual) Basophils % (Manual) Seg Neutrophils # Seg Neutrophils # Man Lymphocytes # (Manual) Monocytes # (Manual) Eosinophils # (Manual) Nucleated RBC % Basophils # (Manual) PT INR APTT Heparin Anti-Xa Level ABG pH POC ABG pO2 ABG pO2 ABG HCO3 ABG O2 Saturation ABG Base Excess POC ABG pCO2 ABG Hemoglobin ABG Oxyhemoglobin ABG Glucose Oxyhemoglobin Sodium Potassium Chloride Carbon Dioxide BUN Creatinine Glucose POC Glucose 141 H 122 H Lactic Acid Calcium Phosphorus Magnesium AST ALT Lactate Dehydrogenase Total Bilirubin Direct Bilirubin CK-MB (CK-2) C-Reactive Protein NT-Pro-B Natriuret Pep Total Protein Albumin Arterial Blood Glucose Urine WBC (Auto) Urine Creatinine 01/26/20 01/26/20 01/27/20 18:03 23:55 04:47 WBC RBC Hgb Hct MCHC RDW MCV MCH Lymph % (Auto) [place] % (Auto) [place] # Eos # Lymph # (Auto) [place] # (Auto) Eos # (Auto) Seg Neutrophils % Seg Neuts % (Manual) Baso # (Auto) Lymphocytes % (Manual) Monocytes % (Manual) Eosinophils % (Manual) Basophils % (Manual) Seg Neutrophils # Seg Neutrophils # Man Lymphocytes # (Manual) Monocytes # (Manual) Eosinophils # (Manual) Nucleated RBC % Basophils # (Manual) PT INR APTT Heparin Anti-Xa Level ABG pH POC ABG pO2 ABG pO2 ABG HCO3 ABG O2 Saturation ABG Base Excess POC ABG pCO2 ABG Hemoglobin ABG Oxyhemoglobin ABG Glucose Oxyhemoglobin Sodium Potassium Chloride Carbon Dioxide BUN 30 H Creatinine 0.7 L Glucose 135 H POC Glucose 142 H 159 H Lactic Acid Calcium Phosphorus Magnesium AST ALT Lactate Dehydrogenase Total Bilirubin Direct Bilirubin CK-MB (CK-2) C-Reactive Protein NT-Pro-B Natriuret Pep Total Protein Albumin Arterial Blood Glucose Urine WBC (Auto) Urine Creatinine 01/27/20 01/27/20 01/27/20 05:43 12:06 17:16 WBC RBC Hgb Hct MCHC RDW MCV MCH Lymph % (Auto) [place] % (Auto) [place] # Eos # Lymph # (Auto) [place] # (Auto) Eos # (Auto) Seg Neutrophils % Seg Neuts % (Manual) Baso # (Auto) Lymphocytes % (Manual) Monocytes % (Manual) Eosinophils % (Manual) Basophils % (Manual) Seg Neutrophils # Seg Neutrophils # Man Lymphocytes # (Manual) Monocytes # (Manual) Eosinophils # (Manual) Nucleated RBC % Basophils # (Manual) PT INR APTT Heparin Anti-Xa Level ABG pH POC ABG pO2 ABG pO2 ABG HCO3 ABG O2 Saturation ABG Base Excess POC ABG pCO2 ABG Hemoglobin ABG Oxyhemoglobin ABG Glucose Oxyhemoglobin Sodium Potassium Chloride Carbon Dioxide BUN Creatinine Glucose POC Glucose 143 H 142 H 128 H Lactic Acid Calcium Phosphorus Magnesium AST ALT Lactate Dehydrogenase Total Bilirubin Direct Bilirubin CK-MB (CK-2) C-Reactive Protein NT-Pro-B Natriuret Pep Total Protein Albumin Arterial Blood Glucose Urine WBC (Auto) Urine Creatinine 01/27/20 01/28/20 01/28/20 23:55 04:37 05:55 WBC RBC Hgb 9.4 L Hct 29.9 L MCHC RDW MCV MCH Lymph % (Auto) [place] % (Auto) [place] # Eos # Lymph # (Auto) [place] # (Auto) Eos # (Auto) Seg Neutrophils % Seg Neuts % (Manual) Baso # (Auto) Lymphocytes % (Manual) Monocytes % (Manual) Eosinophils % (Manual) Basophils % (Manual) Seg Neutrophils # Seg Neutrophils # Man Lymphocytes # (Manual) Monocytes # (Manual) Eosinophils # (Manual) Nucleated RBC % Basophils # (Manual) PT INR APTT Heparin Anti-Xa Level ABG pH POC ABG pO2 ABG pO2 ABG HCO3 ABG O2 Saturation ABG Base Excess POC ABG pCO2 ABG Hemoglobin ABG Oxyhemoglobin ABG Glucose Oxyhemoglobin Sodium Potassium Chloride Carbon Dioxide BUN Creatinine Glucose POC Glucose 166 H 169 H Lactic Acid Calcium Phosphorus Magnesium AST ALT Lactate Dehydrogenase Total Bilirubin Direct Bilirubin CK-MB (CK-2) C-Reactive Protein NT-Pro-B Natriuret Pep Total Protein Albumin Arterial Blood Glucose Urine WBC (Auto) Urine Creatinine 01/28/20 01/28/20 01/28/20 11:58 17:26 23:46 WBC RBC Hgb Hct MCHC RDW MCV MCH Lymph % (Auto) [place] % (Auto) [place] # Eos # Lymph # (Auto) [place] # (Auto) Eos # (Auto) Seg Neutrophils % Seg Neuts % (Manual) Baso # (Auto) Lymphocytes % (Manual) Monocytes % (Manual) Eosinophils % (Manual) Basophils % (Manual) Seg Neutrophils # Seg Neutrophils # Man Lymphocytes # (Manual) Monocytes # (Manual) Eosinophils # (Manual) Nucleated RBC % Basophils # (Manual) PT INR APTT Heparin Anti-Xa Level ABG pH POC ABG pO2 ABG pO2 ABG HCO3 ABG O2 Saturation ABG Base Excess POC ABG pCO2 ABG Hemoglobin ABG Oxyhemoglobin ABG Glucose Oxyhemoglobin Sodium Potassium Chloride Carbon Dioxide BUN Creatinine Glucose POC Glucose 130 H 126 H 150 H Lactic Acid Calcium Phosphorus Magnesium AST ALT Lactate Dehydrogenase Total Bilirubin Direct Bilirubin CK-MB (CK-2) C-Reactive Protein NT-Pro-B Natriuret Pep Total Protein Albumin Arterial Blood Glucose Urine WBC (Auto) Urine Creatinine 01/29/20 01/29/20 01/29/20 04:55 06:00 12:28 WBC RBC Hgb Hct MCHC RDW MCV MCH Lymph % (Auto) [place] % (Auto) [place] # Eos # Lymph # (Auto) [place] # (Auto) Eos # (Auto) Seg Neutrophils % Seg Neuts % (Manual) Baso # (Auto) Lymphocytes % (Manual) Monocytes % (Manual) Eosinophils % (Manual) Basophils % (Manual) Seg Neutrophils # Seg Neutrophils # Man Lymphocytes # (Manual) Monocytes # (Manual) Eosinophils # (Manual) Nucleated RBC % Basophils # (Manual) PT INR APTT Heparin Anti-Xa Level ABG pH POC ABG pO2 ABG pO2 ABG HCO3 ABG O2 Saturation ABG Base Excess POC ABG pCO2 ABG Hemoglobin ABG Oxyhemoglobin ABG Glucose Oxyhemoglobin Sodium Potassium Chloride Carbon Dioxide 34 H BUN Creatinine 0.6 L Glucose 152 H POC Glucose 157 H 156 H Lactic Acid Calcium Phosphorus Magnesium AST ALT Lactate Dehydrogenase Total Bilirubin Direct Bilirubin CK-MB (CK-2) C-Reactive Protein NT-Pro-B Natriuret Pep Total Protein Albumin Arterial Blood Glucose Urine WBC (Auto) Urine Creatinine 01/29/20 01/30/20 01/30/20 19:06 00:29 05:39 WBC RBC Hgb Hct MCHC RDW MCV MCH Lymph % (Auto) [place] % (Auto) [place] # Eos # Lymph # (Auto) [place] # (Auto) Eos # (Auto) Seg Neutrophils % Seg Neuts % (Manual) Baso # (Auto) Lymphocytes % (Manual) Monocytes % (Manual) Eosinophils % (Manual) Basophils % (Manual) Seg Neutrophils # Seg Neutrophils # Man Lymphocytes # (Manual) Monocytes # (Manual) Eosinophils # (Manual) Nucleated RBC % Basophils # (Manual) PT INR APTT Heparin Anti-Xa Level ABG pH POC ABG pO2 ABG pO2 ABG HCO3 ABG O2 Saturation ABG Base Excess POC ABG pCO2 ABG Hemoglobin ABG Oxyhemoglobin ABG Glucose Oxyhemoglobin Sodium Potassium Chloride Carbon Dioxide BUN Creatinine Glucose POC Glucose 152 H 132 H 159 H Lactic Acid Calcium Phosphorus Magnesium AST ALT Lactate Dehydrogenase Total Bilirubin Direct Bilirubin CK-MB (CK-2) C-Reactive Protein NT-Pro-B Natriuret Pep Total Protein Albumin Arterial Blood Glucose Urine WBC (Auto) Urine Creatinine 01/30/20 01/30/20 01/30/20 12:27 17:42 23:28 WBC RBC Hgb Hct MCHC RDW MCV MCH Lymph % (Auto) [place] % (Auto) [place] # Eos # Lymph # (Auto) [place] # (Auto) Eos # (Auto) Seg Neutrophils % Seg Neuts % (Manual) Baso # (Auto) Lymphocytes % (Manual) Monocytes % (Manual) Eosinophils % (Manual) Basophils % (Manual) Seg Neutrophils # Seg Neutrophils # Man Lymphocytes # (Manual) Monocytes # (Manual) Eosinophils # (Manual) Nucleated RBC % Basophils # (Manual) PT INR APTT Heparin Anti-Xa Level ABG pH POC ABG pO2 ABG pO2 ABG HCO3 ABG O2 Saturation ABG Base Excess POC ABG pCO2 ABG Hemoglobin ABG Oxyhemoglobin ABG Glucose Oxyhemoglobin Sodium Potassium Chloride Carbon Dioxide BUN Creatinine Glucose POC Glucose 151 H 144 H 164 H Lactic Acid Calcium Phosphorus Magnesium AST ALT Lactate Dehydrogenase Total Bilirubin Direct Bilirubin CK-MB (CK-2) C-Reactive Protein NT-Pro-B Natriuret Pep Total Protein Albumin Arterial Blood Glucose Urine WBC (Auto) Urine Creatinine 01/31/20 01/31/20 01/31/20 05:51 11:51 18:06 WBC RBC Hgb Hct MCHC RDW MCV MCH Lymph % (Auto) [place] % (Auto) [place] # Eos # Lymph # (Auto) [place] # (Auto) Eos # (Auto) Seg Neutrophils % Seg Neuts % (Manual) Baso # (Auto) Lymphocytes % (Manual) Monocytes % (Manual) Eosinophils % (Manual) Basophils % (Manual) Seg Neutrophils # Seg Neutrophils # Man Lymphocytes # (Manual) Monocytes # (Manual) Eosinophils # (Manual) Nucleated RBC % Basophils # (Manual) PT INR APTT Heparin Anti-Xa Level ABG pH POC ABG pO2 ABG pO2 ABG HCO3 ABG O2 Saturation ABG Base Excess POC ABG pCO2 ABG Hemoglobin ABG Oxyhemoglobin ABG Glucose Oxyhemoglobin Sodium Potassium Chloride Carbon Dioxide BUN Creatinine Glucose POC Glucose 131 H 167 H 210 H Lactic Acid Calcium Phosphorus Magnesium AST ALT Lactate Dehydrogenase Total Bilirubin Direct Bilirubin CK-MB (CK-2) C-Reactive Protein NT-Pro-B Natriuret Pep Total Protein Albumin Arterial Blood Glucose Urine WBC (Auto) Urine Creatinine 01/31/20 01/31/20 02/01/20 19:24 Unknown 00:34 WBC RBC Hgb Hct MCHC RDW MCV MCH Lymph % (Auto) [place] % (Auto) [place] # Eos # Lymph # (Auto) [place] # (Auto) Eos # (Auto) Seg Neutrophils % Seg Neuts % (Manual) Baso # (Auto) Lymphocytes % (Manual) Monocytes % (Manual) Eosinophils % (Manual) Basophils % (Manual) Seg Neutrophils # Seg Neutrophils # Man Lymphocytes # (Manual) Monocytes # (Manual) Eosinophils # (Manual) Nucleated RBC % Basophils # (Manual) PT INR APTT Heparin Anti-Xa Level ABG pH POC ABG pO2 ABG pO2 ABG HCO3 ABG O2 Saturation ABG Base Excess POC ABG pCO2 ABG Hemoglobin ABG Oxyhemoglobin ABG Glucose Oxyhemoglobin Sodium Potassium Chloride 95.3 L Carbon Dioxide 33 H BUN 36 H Creatinine Glucose 187 H POC Glucose 116 H Lactic Acid Calcium Phosphorus Magnesium AST ALT Lactate Dehydrogenase Total Bilirubin Direct Bilirubin CK-MB (CK-2) C-Reactive Protein NT-Pro-B Natriuret Pep Total Protein Albumin Arterial Blood Glucose Urine WBC (Auto) Urine Creatinine 57.4 H 02/01/20 02/01/20 02/01/20 05:24 10:40 12:29 WBC RBC Hgb Hct MCHC RDW MCV MCH Lymph % (Auto) [place] % (Auto) [place] # Eos # Lymph # (Auto) [place] # (Auto) Eos # (Auto) Seg Neutrophils % Seg Neuts % (Manual) Baso # (Auto) Lymphocytes % (Manual) Monocytes % (Manual) Eosinophils % (Manual) Basophils % (Manual) Seg Neutrophils # Seg Neutrophils # Man Lymphocytes # (Manual) Monocytes # (Manual) Eosinophils # (Manual) Nucleated RBC % Basophils # (Manual) PT INR APTT Heparin Anti-Xa Level ABG pH POC ABG pO2 ABG pO2 ABG HCO3 ABG O2 Saturation ABG Base Excess POC ABG pCO2 ABG Hemoglobin ABG Oxyhemoglobin ABG Glucose Oxyhemoglobin Sodium Potassium Chloride Carbon Dioxide BUN Creatinine Glucose POC Glucose 142 H 165 H 151 H Lactic Acid Calcium Phosphorus Magnesium AST ALT Lactate Dehydrogenase Total Bilirubin Direct Bilirubin CK-MB (CK-2) C-Reactive Protein NT-Pro-B Natriuret Pep Total Protein Albumin Arterial Blood Glucose Urine WBC (Auto) Urine Creatinine 02/01/20 02/01/20 02/02/20 17:16 23:23 06:36 WBC RBC Hgb Hct MCHC RDW MCV MCH Lymph % (Auto) [place] % (Auto) [place] # Eos # Lymph # (Auto) [place] # (Auto) Eos # (Auto) Seg Neutrophils % Seg Neuts % (Manual) Baso # (Auto) Lymphocytes % (Manual) Monocytes % (Manual) Eosinophils % (Manual) Basophils % (Manual) Seg Neutrophils # Seg Neutrophils # Man Lymphocytes # (Manual) Monocytes # (Manual) Eosinophils # (Manual) Nucleated RBC % Basophils # (Manual) PT INR APTT Heparin Anti-Xa Level ABG pH POC ABG pO2 ABG pO2 ABG HCO3 ABG O2 Saturation ABG Base Excess POC ABG pCO2 ABG Hemoglobin ABG Oxyhemoglobin ABG Glucose Oxyhemoglobin Sodium Potassium Chloride Carbon Dioxide BUN Creatinine Glucose POC Glucose 137 H 145 H 181 H Lactic Acid Calcium Phosphorus Magnesium AST ALT Lactate Dehydrogenase Total Bilirubin Direct Bilirubin CK-MB (CK-2) C-Reactive Protein NT-Pro-B Natriuret Pep Total Protein Albumin Arterial Blood Glucose Urine WBC (Auto) Urine Creatinine 02/02/20 02/02/20 02/02/20 10:01 12:05 17:54 WBC RBC Hgb Hct MCHC RDW MCV MCH Lymph % (Auto) [place] % (Auto) [place] # Eos # Lymph # (Auto) [place] # (Auto) Eos # (Auto) Seg Neutrophils % Seg Neuts % (Manual) Baso # (Auto) Lymphocytes % (Manual) Monocytes % (Manual) Eosinophils % (Manual) Basophils % (Manual) Seg Neutrophils # Seg Neutrophils # Man Lymphocytes # (Manual) Monocytes # (Manual) Eosinophils # (Manual) Nucleated RBC % Basophils # (Manual) PT INR APTT Heparin Anti-Xa Level ABG pH POC ABG pO2 ABG pO2 ABG HCO3 ABG O2 Saturation ABG Base Excess POC ABG pCO2 ABG Hemoglobin ABG Oxyhemoglobin ABG Glucose Oxyhemoglobin Sodium Potassium Chloride 95.3 L Carbon Dioxide BUN 44 H Creatinine Glucose 234 H POC Glucose 184 H 127 H Lactic Acid Calcium Phosphorus Magnesium AST 363 H ALT 457 H Lactate Dehydrogenase Total Bilirubin Direct Bilirubin CK-MB (CK-2) C-Reactive Protein NT-Pro-B Natriuret Pep Total Protein Albumin 3.0 L Arterial Blood Glucose Urine WBC (Auto) Urine Creatinine 02/02/20 02/03/20 02/03/20 23:47 05:32 07:04 WBC 13.0 H RBC Hgb 9.5 L Hct 30.8 L MCHC 31 L RDW 19.6 H MCV 81 L MCH 25 L Lymph % (Auto) [place] % (Auto) 9.4 H [place] # Eos # Lymph # (Auto) [place] # (Auto) 1.2 H Eos # (Auto) Seg Neutrophils % 72.3 H Seg Neuts % (Manual) Baso # (Auto) Lymphocytes % (Manual) Monocytes % (Manual) Eosinophils % (Manual) Basophils % (Manual) Seg Neutrophils # 9.4 H Seg Neutrophils # Man Lymphocytes # (Manual) Monocytes # (Manual) Eosinophils # (Manual) Nucleated RBC % Basophils # (Manual) PT INR APTT Heparin Anti-Xa Level ABG pH POC ABG pO2 ABG pO2 ABG HCO3 ABG O2 Saturation ABG Base Excess POC ABG pCO2 ABG Hemoglobin ABG Oxyhemoglobin ABG Glucose Oxyhemoglobin Sodium Potassium Chloride Carbon Dioxide BUN Creatinine Glucose POC Glucose 124 H 129 H Lactic Acid Calcium Phosphorus Magnesium AST ALT Lactate Dehydrogenase Total Bilirubin Direct Bilirubin CK-MB (CK-2) C-Reactive Protein NT-Pro-B Natriuret Pep Total Protein Albumin Arterial Blood Glucose Urine WBC (Auto) Urine Creatinine 02/03/20 02/03/20 02/03/20 07:04 11:32 12:49 WBC RBC Hgb Hct MCHC RDW MCV MCH Lymph % (Auto) [place] % (Auto) [place] # Eos # Lymph # (Auto) [place] # (Auto) Eos # (Auto) Seg Neutrophils % Seg Neuts % (Manual) Baso # (Auto) Lymphocytes % (Manual) Monocytes % (Manual) Eosinophils % (Manual) Basophils % (Manual) Seg Neutrophils # Seg Neutrophils # Man Lymphocytes # (Manual) Monocytes # (Manual) Eosinophils # (Manual) Nucleated RBC % Basophils # (Manual) PT INR APTT Heparin Anti-Xa Level ABG pH POC ABG pO2 ABG pO2 ABG HCO3 ABG O2 Saturation ABG Base Excess POC ABG pCO2 ABG Hemoglobin ABG Oxyhemoglobin ABG Glucose Oxyhemoglobin Sodium Potassium Chloride 97.9 L Carbon Dioxide 33 H BUN 39 H Creatinine Glucose 119 H POC Glucose 138 H Lactic Acid Calcium Phosphorus Magnesium 2.60 H AST ALT Lactate Dehydrogenase Total Bilirubin Direct Bilirubin CK-MB (CK-2) C-Reactive Protein NT-Pro-B Natriuret Pep Total Protein Albumin Arterial Blood Glucose Urine WBC (Auto) Urine Creatinine 02/03/20 02/04/20 02/04/20 18:28 16:24 16:24 WBC RBC 3.38 L Hgb 8.6 L Hct 26.9 L MCHC RDW 19.5 H MCV 80 L MCH 26 L Lymph % (Auto) [place] % (Auto) [place] # Eos # Lymph # (Auto) [place] # (Auto) Eos # (Auto) Seg Neutrophils % Seg Neuts % (Manual) Baso # (Auto) Lymphocytes % (Manual) Monocytes % (Manual) Eosinophils % (Manual) Basophils % (Manual) Seg Neutrophils # Seg Neutrophils # Man Lymphocytes # (Manual) Monocytes # (Manual) Eosinophils # (Manual) Nucleated RBC % Basophils # (Manual) PT INR APTT Heparin Anti-Xa Level ABG pH POC ABG pO2 ABG pO2 ABG HCO3 ABG O2 Saturation ABG Base Excess POC ABG pCO2 ABG Hemoglobin ABG Oxyhemoglobin ABG Glucose Oxyhemoglobin Sodium Potassium 3.4 L Chloride Carbon Dioxide 31 H BUN 37 H Creatinine Glucose 70 L POC Glucose 118 H Lactic Acid Calcium Phosphorus Magnesium AST 169 H ALT 394 H Lactate Dehydrogenase Total Bilirubin 1.50 H Direct Bilirubin CK-MB (CK-2) C-Reactive Protein NT-Pro-B Natriuret Pep Total Protein Albumin 2.9 L Arterial Blood Glucose Urine WBC (Auto) Urine Creatinine 02/05/20 02/05/20 02/05/20 00:41 06:37 17:14 WBC RBC Hgb Hct MCHC RDW MCV MCH Lymph % (Auto) [place] % (Auto) [place] # Eos # Lymph # (Auto) [place] # (Auto) Eos # (Auto) Seg Neutrophils % Seg Neuts % (Manual) Baso # (Auto) Lymphocytes % (Manual) Monocytes % (Manual) Eosinophils % (Manual) Basophils % (Manual) Seg Neutrophils # Seg Neutrophils # Man Lymphocytes # (Manual) Monocytes # (Manual) Eosinophils # (Manual) Nucleated RBC % Basophils # (Manual) PT INR APTT Heparin Anti-Xa Level ABG pH POC ABG pO2 ABG pO2 ABG HCO3 ABG O2 Saturation ABG Base Excess POC ABG pCO2 ABG Hemoglobin ABG Oxyhemoglobin ABG Glucose Oxyhemoglobin Sodium Potassium 3.1 L Chloride Carbon Dioxide 35 H BUN 32 H Creatinine 0.7 L Glucose POC Glucose 69 L 127 H Lactic Acid Calcium Phosphorus Magnesium AST 134 H ALT 352 H Lactate Dehydrogenase Total Bilirubin 1.60 H Direct Bilirubin CK-MB (CK-2) C-Reactive Protein NT-Pro-B Natriuret Pep Total Protein Albumin 2.9 L Arterial Blood Glucose Urine WBC (Auto) Urine Creatinine 02/05/20 02/06/20 02/06/20 23:43 05:32 08:01 WBC RBC Hgb Hct MCHC RDW MCV MCH Lymph % (Auto) [place] % (Auto) [place] # Eos # Lymph # (Auto) [place] # (Auto) Eos # (Auto) Seg Neutrophils % Seg Neuts % (Manual) Baso # (Auto) Lymphocytes % (Manual) Monocytes % (Manual) Eosinophils % (Manual) Basophils % (Manual) Seg Neutrophils # Seg Neutrophils # Man Lymphocytes # (Manual) Monocytes # (Manual) Eosinophils # (Manual) Nucleated RBC % Basophils # (Manual) PT INR APTT Heparin Anti-Xa Level ABG pH POC ABG pO2 ABG pO2 ABG HCO3 ABG O2 Saturation ABG Base Excess POC ABG pCO2 ABG Hemoglobin ABG Oxyhemoglobin ABG Glucose Oxyhemoglobin Sodium Potassium Chloride Carbon Dioxide BUN 40 H Creatinine Glucose 132 H POC Glucose 129 H 131 H Lactic Acid Calcium Phosphorus Magnesium AST ALT Lactate Dehydrogenase Total Bilirubin Direct Bilirubin CK-MB (CK-2) C-Reactive Protein NT-Pro-B Natriuret Pep Total Protein Albumin Arterial Blood Glucose Urine WBC (Auto) Urine Creatinine 02/06/20 02/06/20 02/06/20 11:51 16:28 17:32 WBC RBC Hgb Hct MCHC RDW MCV MCH Lymph % (Auto) [place] % (Auto) [place] # Eos # Lymph # (Auto) [place] # (Auto) Eos # (Auto) Seg Neutrophils % Seg Neuts % (Manual) Baso # (Auto) Lymphocytes % (Manual) Monocytes % (Manual) Eosinophils % (Manual) Basophils % (Manual) Seg Neutrophils # Seg Neutrophils # Man Lymphocytes # (Manual) Monocytes # (Manual) Eosinophils # (Manual) Nucleated RBC % Basophils # (Manual) PT INR APTT Heparin Anti-Xa Level ABG pH POC ABG pO2 ABG pO2 ABG HCO3 ABG O2 Saturation ABG Base Excess POC ABG pCO2 ABG Hemoglobin ABG Oxyhemoglobin ABG Glucose Oxyhemoglobin Sodium Potassium Chloride Carbon Dioxide BUN Creatinine Glucose POC Glucose 167 H 129 H Lactic Acid Calcium Phosphorus Magnesium AST 824 H ALT 948 H Lactate Dehydrogenase Total Bilirubin 1.70 H Direct Bilirubin 1.2 H CK-MB (CK-2) C-Reactive Protein NT-Pro-B Natriuret Pep Total Protein Albumin 2.9 L Arterial Blood Glucose Urine WBC (Auto) Urine Creatinine 02/07/20 02/07/20 02/07/20 00:11 04:57 04:57 WBC RBC Hgb 9.2 L Hct 29.7 L MCHC 31 L RDW 20.2 H MCV 80 L MCH 25 L Lymph % (Auto) [place] % (Auto) [place] # Eos # Lymph # (Auto) [place] # (Auto) Eos # (Auto) Seg Neutrophils % Seg Neuts % (Manual) Baso # (Auto) Lymphocytes % (Manual) Monocytes % (Manual) Eosinophils % (Manual) Basophils % (Manual) Seg Neutrophils # Seg Neutrophils # Man Lymphocytes # (Manual) Monocytes # (Manual) Eosinophils # (Manual) Nucleated RBC % Basophils # (Manual) PT INR APTT Heparin Anti-Xa Level ABG pH POC ABG pO2 ABG pO2 ABG HCO3 ABG O2 Saturation ABG Base Excess POC ABG pCO2 ABG Hemoglobin ABG Oxyhemoglobin ABG Glucose Oxyhemoglobin Sodium Potassium 3.4 L D Chloride Carbon Dioxide 32 H BUN 39 H Creatinine Glucose 106 H POC Glucose 121 H Lactic Acid Calcium Phosphorus Magnesium AST ALT Lactate Dehydrogenase Total Bilirubin Direct Bilirubin CK-MB (CK-2) C-Reactive Protein NT-Pro-B Natriuret Pep Total Protein Albumin Arterial Blood Glucose Urine WBC (Auto) Urine Creatinine 02/07/20 02/07/20 02/07/20 15:03 15:03 17:11 WBC RBC Hgb Hct MCHC RDW MCV MCH Lymph % (Auto) [place] % (Auto) [place] # Eos # Lymph # (Auto) [place] # (Auto) Eos # (Auto) Seg Neutrophils % Seg Neuts % (Manual) Baso # (Auto) Lymphocytes % (Manual) Monocytes % (Manual) Eosinophils % (Manual) Basophils % (Manual) Seg Neutrophils # Seg Neutrophils # Man Lymphocytes # (Manual) Monocytes # (Manual) Eosinophils # (Manual) Nucleated RBC % Basophils # (Manual) PT 27.0 H INR 2.46 H APTT Heparin Anti-Xa Level ABG pH POC ABG pO2 ABG pO2 ABG HCO3 ABG O2 Saturation ABG Base Excess POC ABG pCO2 ABG Hemoglobin ABG Oxyhemoglobin ABG Glucose Oxyhemoglobin Sodium Potassium Chloride Carbon Dioxide BUN Creatinine Glucose POC Glucose 109 H Lactic Acid Calcium Phosphorus Magnesium AST 424 H ALT 796 H Lactate Dehydrogenase Total Bilirubin 1.60 H Direct Bilirubin 1.2 H CK-MB (CK-2) C-Reactive Protein NT-Pro-B Natriuret Pep Total Protein Albumin 2.9 L Arterial Blood Glucose Urine WBC (Auto) Urine Creatinine 02/08/20 02/08/20 02/08/20 12:14 17:44 19:00 WBC RBC Hgb Hct MCHC RDW MCV MCH Lymph % (Auto) [place] % (Auto) [place] # Eos # Lymph # (Auto) [place] # (Auto) Eos # (Auto) Seg Neutrophils % Seg Neuts % (Manual) Baso # (Auto) Lymphocytes % (Manual) Monocytes % (Manual) Eosinophils % (Manual) Basophils % (Manual) Seg Neutrophils # Seg Neutrophils # Man Lymphocytes # (Manual) Monocytes # (Manual) Eosinophils # (Manual) Nucleated RBC % Basophils # (Manual) PT INR APTT Heparin Anti-Xa Level ABG pH POC ABG pO2 ABG pO2 ABG HCO3 ABG O2 Saturation ABG Base Excess POC ABG pCO2 ABG Hemoglobin ABG Oxyhemoglobin ABG Glucose Oxyhemoglobin Sodium Potassium Chloride Carbon Dioxide BUN Creatinine Glucose POC Glucose 111 H 107 H Lactic Acid Calcium Phosphorus Magnesium AST 309 H ALT 650 H Lactate Dehydrogenase Total Bilirubin 1.30 H Direct Bilirubin 0.9 H CK-MB (CK-2) C-Reactive Protein NT-Pro-B Natriuret Pep Total Protein 6.2 L Albumin 2.7 L Arterial Blood Glucose Urine WBC (Auto) Urine Creatinine 02/09/20 02/09/20 02/09/20 05:41 12:28 18:07 WBC RBC Hgb Hct MCHC RDW MCV MCH Lymph % (Auto) [place] % (Auto) [place] # Eos # Lymph # (Auto) [place] # (Auto) Eos # (Auto) Seg Neutrophils % Seg Neuts % (Manual) Baso # (Auto) Lymphocytes % (Manual) Monocytes % (Manual) Eosinophils % (Manual) Basophils % (Manual) Seg Neutrophils # Seg Neutrophils # Man Lymphocytes # (Manual) Monocytes # (Manual) Eosinophils # (Manual) Nucleated RBC % Basophils # (Manual) PT INR APTT Heparin Anti-Xa Level ABG pH POC ABG pO2 ABG pO2 ABG HCO3 ABG O2 Saturation ABG Base Excess POC ABG pCO2 ABG Hemoglobin ABG Oxyhemoglobin ABG Glucose Oxyhemoglobin Sodium Potassium Chloride Carbon Dioxide BUN Creatinine Glucose POC Glucose 113 H 140 H 143 H Lactic Acid Calcium Phosphorus Magnesium AST ALT Lactate Dehydrogenase Total Bilirubin Direct Bilirubin CK-MB (CK-2) C-Reactive Protein NT-Pro-B Natriuret Pep Total Protein Albumin Arterial Blood Glucose Urine WBC (Auto) Urine Creatinine 02/09/20 02/09/20 02/10/20 21:40 23:45 06:00 WBC RBC Hgb Hct MCHC RDW MCV MCH Lymph % (Auto) [place] % (Auto) [place] # Eos # Lymph # (Auto) [place] # (Auto) Eos # (Auto) Seg Neutrophils % Seg Neuts % (Manual) Baso # (Auto) Lymphocytes % (Manual) Monocytes % (Manual) Eosinophils % (Manual) Basophils % (Manual) Seg Neutrophils # Seg Neutrophils # Man Lymphocytes # (Manual) Monocytes # (Manual) Eosinophils # (Manual) Nucleated RBC % Basophils # (Manual) PT INR APTT Heparin Anti-Xa Level ABG pH POC ABG pO2 ABG pO2 59.8 L ABG HCO3 33.3 H ABG O2 Saturation 88.9 L ABG Base Excess 7.4 H POC ABG pCO2 ABG Hemoglobin 10.4 L ABG Oxyhemoglobin ABG Glucose Oxyhemoglobin 86.3 L Sodium Potassium Chloride Carbon Dioxide BUN Creatinine Glucose POC Glucose 127 H 114 H Lactic Acid Calcium Phosphorus Magnesium AST ALT Lactate Dehydrogenase Total Bilirubin Direct Bilirubin CK-MB (CK-2) C-Reactive Protein NT-Pro-B Natriuret Pep Total Protein Albumin Arterial Blood Glucose Urine WBC (Auto) Urine Creatinine 02/10/20 02/10/20 02/10/20 07:40 07:40 13:38 WBC 11.5 H RBC Hgb 10.6 L Hct 34.7 L MCHC 31 L RDW 19.8 H MCV 79 L MCH 24 L Lymph % (Auto) [place] % (Auto) 9.2 H [place] # Eos # Lymph # (Auto) [place] # (Auto) 1.1 H Eos # (Auto) Seg Neutrophils % Seg Neuts % (Manual) Baso # (Auto) Lymphocytes % (Manual) Monocytes % (Manual) Eosinophils % (Manual) Basophils % (Manual) Seg Neutrophils # Seg Neutrophils # Man Lymphocytes # (Manual) Monocytes # (Manual) Eosinophils # (Manual) Nucleated RBC % Basophils # (Manual) PT INR APTT Heparin Anti-Xa Level ABG pH POC ABG pO2 ABG pO2 ABG HCO3 ABG O2 Saturation ABG Base Excess POC ABG pCO2 ABG Hemoglobin ABG Oxyhemoglobin ABG Glucose Oxyhemoglobin Sodium 151 H Potassium Chloride 107.2 H Carbon Dioxide 36 H BUN 25 H Creatinine 0.7 L Glucose 114 H POC Glucose 116 H Lactic Acid Calcium Phosphorus Magnesium 2.40 H AST ALT Lactate Dehydrogenase Total Bilirubin Direct Bilirubin CK-MB (CK-2) C-Reactive Protein NT-Pro-B Natriuret Pep Total Protein Albumin Arterial Blood Glucose Urine WBC (Auto) Urine Creatinine 02/10/20 02/11/20 02/11/20 17:44 05:47 12:21 WBC RBC Hgb Hct MCHC RDW MCV MCH Lymph % (Auto) [place] % (Auto) [place] # Eos # Lymph # (Auto) [place] # (Auto) Eos # (Auto) Seg Neutrophils % Seg Neuts % (Manual) Baso # (Auto) Lymphocytes % (Manual) Monocytes % (Manual) Eosinophils % (Manual) Basophils % (Manual) Seg Neutrophils # Seg Neutrophils # Man Lymphocytes # (Manual) Monocytes # (Manual) Eosinophils # (Manual) Nucleated RBC % Basophils # (Manual) PT INR APTT Heparin Anti-Xa Level ABG pH POC ABG pO2 ABG pO2 ABG HCO3 ABG O2 Saturation ABG Base Excess POC ABG pCO2 ABG Hemoglobin ABG Oxyhemoglobin ABG Glucose Oxyhemoglobin Sodium Potassium Chloride Carbon Dioxide BUN Creatinine Glucose POC Glucose 139 H 173 H 143 H Lactic Acid Calcium Phosphorus Magnesium AST ALT Lactate Dehydrogenase Total Bilirubin Direct Bilirubin CK-MB (CK-2) C-Reactive Protein NT-Pro-B Natriuret Pep Total Protein Albumin Arterial Blood Glucose Urine WBC (Auto) Urine Creatinine 02/11/20 13:43 WBC RBC Hgb Hct MCHC RDW MCV MCH Lymph % (Auto) [place] % (Auto) [place] # Eos # Lymph # (Auto) [place] # (Auto) Eos # (Auto) Seg Neutrophils % Seg Neuts % (Manual) Baso # (Auto) Lymphocytes % (Manual) Monocytes % (Manual) Eosinophils % (Manual) Basophils % (Manual) Seg Neutrophils # Seg Neutrophils # Man Lymphocytes # (Manual) Monocytes # (Manual) Eosinophils # (Manual) Nucleated RBC % Basophils # (Manual) PT INR APTT Heparin Anti-Xa Level ABG pH POC ABG pO2 ABG pO2 ABG HCO3 ABG O2 Saturation ABG Base Excess POC ABG pCO2 ABG Hemoglobin ABG Oxyhemoglobin ABG Glucose Oxyhemoglobin Sodium Potassium Chloride Carbon Dioxide BUN Creatinine Glucose POC Glucose 130 H Lactic Acid Calcium Phosphorus Magnesium AST ALT Lactate Dehydrogenase Total Bilirubin Direct Bilirubin CK-MB (CK-2) C-Reactive Protein NT-Pro-B Natriuret Pep Total Protein Albumin Arterial Blood Glucose Urine WBC (Auto) Urine Creatinine Chest x-ray: pending Allied health notes reviewed: nursing
[2020-02-11] MEDS ORDERED: POTASSIUM CHLORIDE 20 MEQ PACKET FEEDTUBE ONE (15:00)
[2020-02-11] MEDS: DIGOXIN 0.5 MG/2 ML INJ IV SCH (17:33)
[2020-02-11] MEDS ORDERED: PHENYLEPHRINE 100 MG in SODIUM CHLORIDE 0.9% 90 ML IV ONE (17:51)
[2020-02-11] MEDS ORDERED: SODIUM CHLORIDE 0.9% 500 ML 500 ML IV SCH (19:00)
[2020-02-11] MEDS ORDERED: SODIUM CHLORIDE 0.9% 500 ML IVPB IV ONE (20:00)
[2020-02-12] MEDS: METOCLOPRAMIDE 10 MG/2 ML INJ IV SCH ×4 (00:15→18:03)
[2020-02-12] MEDS: METOPROLOL TARTRATE 50 MG TAB PO SCH ×4 (00:15→18:04)
[2020-02-12] MEDS: INSULIN REGULAR, HUMAN 100 UNIT/ML 3ML VIAL SUB-Q SCH ×3 (00:15→13:46)
[2020-02-12 05:42] LABS: Basophils # (Auto) 0.1 K/mm3 (0.0-0.1); Basophils % (Auto) 0.8 % (0.0-1.8); Eosinophils # (Auto) 0.2 K/mm3 (0.0-0.4); Hematocrit 31.8 % (35.5-45.6); Hemoglobin 9.9 gm/dl (11.8-15.2); Lymphocytes # (Auto) 2.6 K/mm3 (1.2-5.4); Mean Corpuscular HGB Conc 31 % (32-34); Mean Corpuscular Volume 79 fl (84-94); Monocytes % (Auto) 10.3 % (0.0-7.3); Platelet Count 272 K/mm3 (140-440); Red Blood Count 4.04 M/mm3 (3.65-5.03); Red Cell Distribution Width 19.4 % (13.2-15.2)
[2020-02-12 06:09] LABS: Blood Urea Nitrogen 28 mg/dL (9-20); Calcium 8.9 mg/dL (8.4-10.2); Hemolysis Index 2
[2020-02-12 06:16] LABS: BUN/Creatinine Ratio 40
--- NOTE | 2020-02-12 08:16 | Progress Note ---
Assessment and Plan Assessment and plan: Patient is a 64-year-old male with known history of hypertension, COPD, history of coronary artery disease, CHF with ejection fraction of 20 to 25% in August 2018 presenting to the emergency room via EMS complaining of shortness of breath. Patient was found to be hypoxic and in respiratory distress. Patient was placed on CPAP in route to the hospital. Patient remained hypoxic on CPAP BiPAP ,subsequently was intubated. Work-up in the emergency room including chest x-ray reveals bilateral pneumonia. He had an elevated white count of 14 and also had an elevated BNP. sputum cultures positive for Pseudomonas, ID treated with cefepime and Vanco. His hospital course became complicated with acute PE, DVT, paroxysmal atrial fib - placed on chronic anticoagulation. Patient was difficult to wean off, status post trach and PEG, remains on mechanical ventilation with trach tube. He then developed partial small bowel obstruction valuated by general surgeon symptom improved with medical Mx, patient was briefly weaned off ventilatory support however, was in respiratory failure requiring full ventilatory support. Cardiac catheterization on 01/22/2020. Patient chronic tracheostomy, remains intubated on ventilatory support --Acute on chronic hypoxemic respiratory failure; Patient has tracheostomy on vent Continue nebulizers, , trach care Wean off ventilator as tolerated Pulmonary critical following --Acute exacerbation of COPD; Patient is currently on ventilatory support Continue nebulizers --Left lower lobe PE; Continue Eliquis, ventilatory support --Acute right lower extremity DVT; Patient is on Eliquis --Bilateral multifocal pneumonia/community-acquired Completed antibiotics, improved --Severe sepsis/bilateral pneumonia: Completed antibiotics COVID-19 test; 11/24/2019; negative 11/26/2019; negative 12/29/2019: Negative -Ischemic cardiomyopathy Cardiology is following, status post cardiac catheterization on 01/22/2020; Coronary artery disease status post PCI and stent to the LAD Continue current cardiac medications --atrial fibrillation WITH RVR Now rate controlled, Stable on amiodarone and Eliquis --Acute on chronic combined systolic and diastolic congestive heart failure Ischemic cardiomyopathy left ventricular ejection fraction 40 to 45% --H/o CAD [[facility] [place] 12/2018 in-stent restenosis] --Hypertensive emergency; present on admission Reasonable blood pressures, continue current antihypertensives As needed medications --Hypokalemia; replenish per protocol and monitor levels --History of alcohol abuse/alcohol withdrawal; Was on CIWA protocol, now stable --Oropharyngeal dysphagia; status post PEG placement Continue PEG feeds per protocol --History of partial small bowel obstruction; resolved Surgery evaluated. At present not a surgical candidate. --Obesity; BMI 34.7 Patient needs weight reduction when medically stable --Severe protein calorie malnutrition/hypoalbuminemia Nutrition supplements, dietitian following, PEG feeds --DVT prophylaxis;Eliquis --Full CODE STATUS We will closely monitor the patient and adjust management as needed Plan of care reviewed with the patient's nurse Baker Biscuit recommendations noted and appreciated February 02, 2020 Patient with episode of projectile vomiting. Most likely source partial bowel obstruction versus tube feeds. Will obtain chest x-ray to rule out aspiration. We will also hold tube feeds for 12 hours and obtain KUB. Area tracheostomy needs to be cleaned out as well. Patient obviously has failed T-piece trial again this time. Resume weaning parameters in a.m. Unlikely the secretions that have been fairly well controlled. Atrial fibrillation rate have remained well controlled. Continue amiodarone and beta-hebert. Metoprolol. Congestive heart failure ejection fraction 40 to 45% patient had inferior wall hypokinesis on catheterization otherwise stable. Continue present diuresis Acute respiratory failure unable to wean tracheostomy at this time. Failed T- piece trial again. Despite improve secretions. Continue bronchodilators and weaning parameters. Projectile vomiting. Rule out small bowel obstruction rule out ileus. Will hold tube feeds obtain imaging to rule out aspiration and bowel obstruction as well. Continue antibiotics. The high probability of a clinically significant, sudden or life threatening deterioration of the [Pulmonary, GI, cardiac] system(s) required my full and direct attention, intervention and personal management. The aggregate critical care time was [40] minutes. This time is in addition to time spent performing reported procedures but in cludes the following: [x] Data Review and interpretation [x] Patient assessment and monitoring of vital signs [x] Documentation [x] Medication orders and management 02/02: Discussed with Nursing staff, patient with some mild change in mental status, not following commands like prior,WILL OBTAIN HEAD CT remains intubated on full mechanical ventilatory support. Today is my first day seeing the patient, have reviewed all records so far. Patients still with elevated heart rate of Afib with RVR continue amiodarone and metoprolol. LVEF 40 to 45%. Continue Eliquis FOR THE Acute PE/DVT. Partial SBO vs ileus- KUB is negative. Will monitor, No further vomiting noted. If no improvement will repeat a chest xray to ensure no aspiration in the last 24 hrs. Will initiate sepsis work up, Obtain cultures, cxr- no change, only showing stable bilateral pulmonary opacities, lactate checked and wnl. Mild elevation in WBC. will recheck in am. IF Continued fever, will reconsult ID. 02/03: Mental status more improved, agree with Reglan will change to IV scheduled for two days, no new vomiting. Pseudomonas A in Sputum. 02/04: Clinical improving, amiodarone discontinued due to LFTs, continue Met oprolol.d/w GI, started on Golytely to clear impaction. Started on dialy Miralax. 02/05: Continue supportive care. Noted bowel movement, continue bowel regimen 02/06: Cardiology input noted beta-hebert increased for better suppression of atrial fibrillation. Continue to monitor, no other evidence of nausea vomiting noted. Discussed with respiratory therapist will be continued on weaning protoco l with pressure support today. 02/07: Patient successfully weaned off the ventilator, No new complaints, continue monitoring, BM noted, Discussed with pulmonary, 02/08; tracheostomy on T-piece, patient is more alert and awake today 02/09; clinically no change, tracheostomy on vent 02/10; tracheostomy on vent, full CODE STATUS, poor prognosis, 02/11; clinically no change, remains on ventilatory support, full CODE STATUS I spoke with patient's Ms. Paulette Araiza in detail patient's condition and treatment plan the son reports consultants recommendations She had numerous questions answered all of them, she wanted to speak with mortician helper, I informed patient's nurse History Interval history: I have seen and examined the patient at the bedside in ICU this morning Patient's chart and medications reviewed Patient with tracheostomy on ventilator support Alert and awake, asking for water Not in acute distress vital signs reviewed Hospitalist Physical - Constitutional Vitals: Temp Pulse Resp BP Pulse Ox 97.8 F 103 H 23 80/56 99 02/12/20 03:57 02/12/20 07:55 02/12/20 06:30 02/12/20 07:55 02/12/20 07:55 General appearance: Present: no acute distress, well-nourished, obese, other (Tracheostomy, on vent) - EENT Eyes: Present: PERRL, EOM intact - Neck Neck: Present: other (Tracheostomy on vent) - Respiratory Respiratory effort: normal Respiratory: bilateral: diminished, rhonchi, negative: rales, wheezing - Cardiovascular Rhythm: regular Heart Sounds: Present: S1 & S2 - Extremities Extremities: no ischemia, No edema - Abdominal General gastrointestinal: soft, non-tender, non-distended, normal bowel sounds, other (PEG tube in place) - Integumentary Integumentary: Present: clear, warm - Psychiatric Psychiatric: appropriate mood/affect, cooperative - Neurologic Neurologic: moves all extremities HEART Score - HEART Score Troponin: Troponin T < 0.010 ng/mL (0.00-0.029) 01/19/20 01:35 Results - Labs CBC & Chem 7: 02/12/20 04:56 02/12/20 04:56 Labs: Laboratory Last Values WBC 10.2 K/mm3 (4.5-11.0) 02/12/20 04:56 RBC 4.04 M/mm3 (3.65-5.03) 02/12/20 04:56 Hgb 9.9 gm/dl (11.8-15.2) L 02/12/20 04:56 Hct 31.8 % (35.5-45.6) L 02/12/20 04:56 MCV 79 fl (84-94) L 02/12/20 04:56 MCH 25 pg (28-32) L 02/12/20 04:56 MCHC 31 % (32-34) L 02/12/20 04:56 RDW 19.4 % (13.2-15.2) H 02/12/20 04:56 Plt Count 272 K/mm3 (140-440) 02/12/20 04:56 Lymph % (Auto) 26.0 % (13.4-35.0) 02/12/20 04:56 Coleman % (Auto) 10.3 % (0.0-7.3) H 02/12/20 04:56 Eos % (Auto) 2.0 % (0.0-4.3) 02/12/20 04:56 Baso % (Auto) 0.8 % (0.0-1.8) 02/12/20 04:56 Lymph # (Auto) 2.6 K/mm3 (1.2-5.4) 02/12/20 04:56 Coleman # (Auto) 1.0 K/mm3 (0.0-0.8) H 02/12/20 04:56 Eos # (Auto) 0.2 K/mm3 (0.0-0.4) 02/12/20 04:56 Baso # (Auto) 0.1 K/mm3 (0.0-0.1) 02/12/20 04:56 Add Manual Diff Complete 12/19/19 11:32 Total Counted 100 12/19/19 11:32 Seg Neutrophils % 60.9 % (40.0-70.0) 02/12/20 04:56 Seg Neuts % (Manual) 82.0 % (40.0-70.0) H 12/19/19 11:32 Band Neutrophils % 0 % 12/19/19 11:32 Lymphocytes % (Manual) 10.0 % (13.4-35.0) L 12/19/19 11:32 Reactive Lymphs % (Man) 0 % 12/19/19 11:32 Monocytes % (Manual) 6.0 % (0.0-7.3) 12/19/19 11:32 Eosinophils % (Manual) 2.0 % (0.0-4.3) 12/19/19 11:32 Basophils % (Manual) 0 % (0.0-1.8) 12/19/19 11:32 Metamyelocytes % 0 % 12/19/19 11:32 Myelocytes % 0 % 12/19/19 11:32 Promyelocytes % 0 % 12/19/19 11:32 Blast Cells % 0 % 12/19/19 11:32 Nucleated RBC % 1.0 % (0.0-0.9) H 12/19/19 11:32 Seg Neutrophils # 6.2 K/mm3 (1.8-7.7) 02/12/20 04:56 Seg Neutrophils # Man 12.0 K/mm3 (1.8-7.7) H 12/19/19 11:32 Band Neutrophils # 0.0 K/mm3 12/19/19 11:32 Lymphocytes # (Manual) 1.5 K/mm3 (1.2-5.4) 12/19/19 11:32 Abs React Lymphs (Man) 0.0 K/mm3 12/19/19 11:32 Monocytes # (Manual) 0.9 K/mm3 (0.0-0.8) H 12/19/19 11:32 Eosinophils # (Manual) 0.3 K/mm3 (0.0-0.4) 12/19/19 11:32 Basophils # (Manual) 0.0 K/mm3 (0.0-0.1) 12/19/19 11:32 Metamyelocytes # 0.0 K/mm3 12/19/19 11:32 Myelocytes # 0.0 K/mm3 12/19/19 11:32 Promyelocytes # 0.0 K/mm3 12/19/19 11:32 Blast Cells # 0.0 K/mm3 12/19/19 11:32 WBC Morphology Not Reportable 12/19/19 11:32 Hypersegmented Neuts Not Reportable 12/19/19 11:32 Hyposegmented Neuts Not Reportable 12/19/19 11:32 Hypogranular Neuts Not Reportable 12/19/19 11:32 Smudge Cells Not Reportable 12/19/19 11:32 Toxic Granulation Not Reportable 12/19/19 11:32 Toxic Vacuolation Not Reportable 12/19/19 11:32 Dohle Bodies Not Reportable 12/19/19 11:32 Pelger-Huet Anomaly Not Reportable 12/19/19 11:32 Hector Rods Not Reportable 12/19/19 11:32 Platelet Estimate Consistent w auto 12/19/19 11:32 Clumped Platelets Not Reportable 12/19/19 11:32 Plt Clumps, EDTA Not Reportable 12/19/19 11:32 Large Platelets Not Reportable 12/19/19 11:32 Giant Platelets Not Reportable 12/19/19 11:32 Platelet Satelliting Not Reportable 12/19/19 11:32 Plt Morphology Comment Not Reportable 12/19/19 11:32 RBC Morphology Not Reportable 12/19/19 11:32 Dimorphic RBCs Not Reportable 12/19/19 11:32 Polychromasia Not Reportable 12/19/19 11:32 Hypochromasia Few 12/19/19 11:32 Poikilocytosis Not Reportable 12/19/19 11:32 Anisocytosis 1+ 12/19/19 11:32 Microcytosis Few 12/19/19 11:32 Macrocytosis Few 12/19/19 11:32 Spherocytes Not Reportable 12/19/19 11:32 Pappenheimer Bodies Not Reportable 12/19/19 11:32 Sickle Cells Not Reportable 12/19/19 11:32 Target Cells Not Reportable 12/19/19 11:32 Tear Drop Cells Not Reportable 12/19/19 11:32 Ovalocytes Not Reportable 12/19/19 11:32 Helmet Cells Not Reportable 12/19/19 11:32 Gottlieb-Menands Bodies Not Reportable 12/19/19 11:32 [place] Rings Not Reportable 12/19/19 11:32 Oc Cells Not Reportable 12/19/19 11:32 Bite Cells Not Reportable 12/19/19 11:32 Crenated Cell Not Reportable 12/19/19 11:32 Elliptocytes Not Reportable 12/19/19 11:32 Acanthocytes (Spur) Not Reportable 12/19/19 11:32 Rouleaux Not Reportable 12/19/19 11:32 Hemoglobin C Crystals Not Reportable 12/19/19 11:32 Schistocytes Not Reportable 12/19/19 11:32 Malaria parasites Not Reportable 12/19/19 11:32 Clifford Bodies Not Reportable 12/19/19 11:32 Hem Pathologist Commnt No 12/19/19 11:32 PT 27.0 Sec. (12.2-14.9) H 02/07/20 15:03 INR 2.46 (0.87-1.13) H 02/07/20 15:03 APTT 31.5 Sec. (24.2-36.6) 01/22/20 09:58 Heparin Anti-Xa Level 1.34 U.I./ml (0.3-0.7) H 01/22/20 04:45 ABG pH 7.502 (7.320-7.450) H 02/11/20 14:11 POC ABG pCO2 34.8 mmHg (32.0-48.0) 02/11/20 14:11 ABG pCO2 54.1 mm Hg 02/09/20 21:40 POC ABG pO2 77.7 mmHg (83-108) L 02/11/20 14:11 ABG pO2 59.8 mm Hg (80.0-90.0) L 02/09/20 21:40 POC ABG HCO3 26.7 02/11/20 14:11 ABG HCO3 33.3 mmol/L (20.0-26.0) H 02/09/20 21:40 ABG O2 Saturation 88.9 % (95.0-99.0) L 02/09/20 21:40 ABG O2 Content 12.7 (0.0-44) 02/09/20 21:40 POC ABG Base Excess 3.6 02/11/20 14:11 ABG Base Excess 7.4 mmol/L (-2.0-3.0) H 02/09/20 21:40 ABG Hemoglobin 11.1 (12.0-17.5) L 02/11/20 14:11 ABG Oxyhemoglobin 84 (94-98) L 12/22/19 03:22 ABG Carboxyhemoglobin 2.3 % (0.0-5.0) 02/09/20 21:40 ABG Methemoglobin 0.6 % (0.0-1.5) 02/09/20 21:40 ABG Sodium 144.7 mmol/L (136.0-145.0) 02/11/20 14:11 ABG Potassium 3.5 mmol/L (3.40-4.50) 02/11/20 14:11 ABG Chloride 108.0 mmol/L (98-107) H 02/11/20 14:11 ABG Glucose 151 mg/dL (65-95) H 02/11/20 14:11 Oxyhemoglobin 86.3 % (95.0-99.0) L 02/09/20 21:40 Carboxyhemoglobin 0.7 (0.5-1.5) 12/22/19 03:22 FiO2 30.0 02/11/20 14:11 Sodium 149 mmol/L (137-145) H 02/12/20 04:56 Potassium 3.8 mmol/L (3.6-5.0) 02/12/20 04:56 Chloride 108.6 mmol/L (98-107) H 02/12/20 04:56 Carbon Dioxide 28 mmol/L (22-30) D 02/12/20 04:56 Anion Gap 16 mmol/L 02/12/20 04:56 BUN 28 mg/dL (9-20) H 02/12/20 04:56 Creatinine 0.7 mg/dL (0.8-1.3) L 02/12/20 04:56 Estimated GFR > 60 ml/min 02/12/20 04:56 BUN/Creatinine Ratio 40 % 02/12/20 04:56 Glucose 108 mg/dL (75-100) H 02/12/20 04:56 POC Glucose 104 mg/dL (70-105) 02/12/20 05:25 Lactic Acid 1.60 mmol/L (0.7-2.0) 02/03/20 12:49 Calcium 8.9 mg/dL (8.4-10.2) 02/12/20 04:56 Ferritin 84.4 ng/mL (30.0-300.0) 11/24/19 04:53 Phosphorus 4.10 mg/dL (2.5-4.5) 01/31/20 19:24 Magnesium 2.40 mg/dL (1.7-2.3) H 02/10/20 07:40 Total Bilirubin 1.30 mg/dL (0.1-1.2) H 02/08/20 19:00 Direct Bilirubin 0.9 mg/dL (0-0.2) H 02/08/20 19:00 Indirect Bilirubin 0.4 mg/dL 02/08/20 19:00 Total Creatine Kinase 141 units/L (55-170) 11/24/19 02:53 CK-MB (CK-2) 4.3 ng/mL (0.0-4.0) H 11/24/19 02:53 AST 309 units/L (5-40) H 02/08/20 19:00 ALT 650 units/L (7-56) H 02/08/20 19:00 CK-MB (CK-2) Rel Index 3.0 (0-4) 11/24/19 02:53 Alkaline Phosphatase 109 units/L (35-129) 02/08/20 19:00 C-Reactive Protein 8.50 mg/dL (0.00-1.30) H 12/01/19 12:16 Ammonia 35.0 umol/L (25-60) 02/03/20 12:49 Lactate Dehydrogenase 228 units/L (91-180) H 12/19/19 04:45 Troponin T < 0.010 ng/mL (0.00-0.029) 01/19/20 01:35 NT-Pro-B Natriuret Pep 3866 pg/mL (0-900) H 01/01/20 10:40 Total Protein 6.2 g/dL (6.3-8.2) L 02/08/20 19:00 Albumin 2.7 g/dL (3.9-5) L 02/08/20 19:00 Albumin/Globulin Ratio 0.8 % 02/08/20 19:00 Procalcitonin 0.44 ng/mL (<0.15) 02/03/20 12:49 Arterial Blood Glucose 151 mg/dL (65-95) H 02/11/20 14:11 Arterial Blood Ionized Calcium 4.7 mg/dL (4.6-5.3) 02/11/20 14:11 Urine Color Cecy (Yellow) 12/31/19 18:04 Urine Turbidity Clear (Clear) 12/31/19 18:04 Urine pH 5.0 (5.0-7.0) 12/31/19 18:04 Ur Specific [place] 1.023 (1.003-1.030) 12/31/19 18:04 Urine Protein <15 mg/dl mg/dL (Negative) 12/31/19 18:04 Urine Glucose (UA) Neg mg/dL (Negative) 12/31/19 18:04 Urine Ketones Neg mg/dL (Negative) 12/31/19 18:04 Urine Blood Neg (Negative) 12/31/19 18:04 Urine Bacteria (Auto) 1+ /HPF (Negative) 12/03/19 06:03 Urine Nitrite Neg (Negative) 12/31/19 18:04 Urine Bilirubin Neg (Negative) 12/31/19 18:04 Urine Urobilinogen 4.0 mg/dL (<2.0) 12/31/19 18:04 Ur Leukocyte Esterase Neg (Negative) 12/31/19 18:04 Urine WBC (Auto) 2.0 /HPF (0.0-6.0) 12/31/19 18:04 Urine RBC (Auto) 3.0 /HPF (0.0-6.0) 12/31/19 18:04 U Epithel Cells (Auto) 2.0 /HPF (0-13.0) 12/31/19 18:04 Urine Mucus 1+ /HPF 12/31/19 18:04 Urine Creatinine 57.4 mg/dL (0.1-20.0) H 01/31/20 Unknown Urine Sodium 59 mmol/L 01/31/20 Unknown Vancomycin Trough 14.2 ug/mL (5.0-20.0) 12/13/19 15:01 Coronavirus (PCR) Negative (Negative) 12/29/19 10:07 Hepatitis A IgM Ab Non-reactive (NonReactive) 02/05/20 06:37 Hep Bs Antigen Non-reactive (Negative) 02/05/20 06:37 Hep B Core IgM Ab Non-reactive (NonReactive) 02/05/20 06:37 Hepatitis C Antibody Non-reactive (NonReactive) 02/05/20 06:37 Blood Type O POSITIVE 01/21/20 13:00 Antibody Screen Negative 01/21/20 13:00 - Diagnostic Impressions Diagnostic Impressions: Echocardiogram 11/29/19 07:37 Transthoracic Echocardiogram Indication: CHF BP: 116/72 HR: 33 Conclusions *The study is technically limited due to poor acoustic windows. *Global left ventricular systolic function is normal. *The estimated ejection fraction is 50-55%. *Mild concentric left ventricular hypertrophy is observed. *There is trace of mitral regurgitation. *There is mild tricuspid regurgitation. Findings Procedure Info: The study quality is poor. The study is technically limited due to poor acoustic windows. The study is technically limited due to patient body habitus. Left Ventricle: The left ventricular chamber size is normal. Mild concentric left ventricular hypertrophy is observed. Global left ventricular systolic function is normal. The estimated ejection fraction is 50-55%. Left Atrium: The left atrial chamber size is normal. Right Ventricle: The right ventricular cavity size is normal. Right Atrium: The right atrial cavity size is normal. Aortic Valve: The aortic valve leaflets are moderately thickened. There is trace of aortic regurgitation. There is no evidence of aortic stenosis. Mitral Valve: The mitral valve leaflets are mildly thickened. There is trace of mitral regurgitation. There is no evidence of mitral stenosis. Tricuspid Valve: There is mild tricuspid regurgitation. No pulmonary hypertension is noted. Pulmonic Valve: There is trace pulmonic regurgitation. Pericardium: There is no pericardial effusion. Aorta: There is no dilatation of the aortic root. Venous: The inferior vena cava appears normal in size. Contrast: Definity was used to optimize study. Intravenous contrast was used to enhance endocardial border definition. Measurements Chambers 2D Name Value Normal Range Ao root diameter (2D) 3.4 cm (2 - 3.7) Aortic Valve Name Value Normal Range AV Vmax 0.98 m/sec - AV VTI 16.76 cm - AV peak gradient 3.83 mmHg - AV mean gradient 2.57 mmHg - LVOT diameter 3.11 cm - LVOT Vmax 0.68 m/sec - LVOT VTI 11.52 cm - LVOT peak gradient 1.84 mmHg - LVOT mean gradient 1.27 mmHg - SV LVOT 87.31 ml - MALOU (continuity Vmax) 5.24 cm2 - MALOU (continuity VTI) 5.21 cm2 - Tricuspid Valve Name Value Normal Range IVC diameter 2.24 cm (1.2 - 2.3) Hoffman/IV: Voiding Method Indwelling Catheter IV Catheter Type [Right INT / Saline Lock Forearm] IV Catheter Type [Right Hand] Peripheral IV IV Catheter Type [Right Upper INT / Saline Lock arm] IV Catheter Type [Left Upper Mid-line arm] IV Catheter Type [Left Forearm INT / Saline Lock ] IV Catheter Type [Left Hand] Peripheral IV IV Catheter Type [Left Wrist] INT / Saline Lock IV Catheter Type [Right Peripheral IV Antecubital] Active Medications - Current Medications Current Medications: Generic Name Dose Route Start Last Admin Trade Name Freq PRN Reason Stop Dose Admin Acetaminophen 650 mg 12/31/19 11:43 02/03/20 12:54 Tylenol FEEDTUBE 650 mg Q6H PRN Administration Pain, Mild (1-3) Lipase/Protease/Amylase 1 each 01/09/20 12:01 Pancrepetr Betancourt 10,500 Unit FEEDTUBE PRN PRN For Clogged Feeding Tube Apixaban 5 mg 01/22/20 22:00 02/11/20 22:11 Eliquis PO 5 mg Q12HR CAR Administration Protocol Atorvastatin Calcium 40 mg 01/20/20 22:00 02/11/20 22:12 Lipitor PO 40 mg QHS ACR Administration Clopidogrel Bisulfate 75 mg 01/21/20 06:00 02/11/20 10:50 Plavix PO 75 mg QDAY CAR Administration Dextrose 50 ml 01/31/20 18:51 02/05/20 00:56 D50w (25gm) Syringe IV 50 ml Q30MIN PRN Administration Hypoglycemia Protocol Digoxin 0.125 mg 02/10/20 17:00 02/11/20 17:33 Lanoxin IV 0.125 mg DAILY@1700 CAR Administration Fentanyl 50 mcg 02/01/20 15:52 Sublimaze IV Q10MIN PRN ANALGESIA Glycopyrrolate 2 mg 01/26/20 20:00 02/11/20 22:20 Glycopyrrolate PO 2 mg TID CAR Administration Haloperidol Lactate 5 mg 02/10/20 14:20 02/11/20 01:49 Haldol IV 5 mg Q6H PRN Administration Agitation Hydrophilic Ointment 1 applic 01/17/20 15:26 Vaseline Lip Therapy TP DIRECT PRN Dry Lips Fentanyl Citrate 2,000 mcg in 100 mls @ 5.65 mls/hr 02/01/20 16:00 02/03/20 11:31 Fentanyl Drip Premix IV 0 mcg/kg/hr TITR CAR 0 mls/hr Titration Protocol 1 MCG/KG/HR Phenylephrine HCl 100 mg/ 100 mls @ 3 mls/hr 02/11/20 17:51 Sodium Chloride IV 02/13/20 03:10 TITR ONE Protocol 50 MCG/MIN Sodium Chloride 500 mls @ 999 mls/hr 02/11/20 19:00 Nacl 0.9% 500 Ml IV ONCE [facility] Insulin Human Regular 0 unit 02/01/20 18:00 02/12/20 05:25 Humulin R SUB-Q Not Given Q6H [facility] Protocol Lansoprazole 30 mg 02/05/20 16:00 02/11/20 10:50 Prevacid Solutab FEEDTUBE 30 mg QDAY [facility] Administration Metoclopramide HCl 10 mg 02/08/20 12:00 02/12/20 06:37 Reglan IV Not Given Q6HR [facility] Metoprolol Tartrate 5 mg 01/11/20 08:00 02/03/20 07:16 Metoprolol IV 5 mg Q6H PRN Administration SEE INSTRUCTIONS Metoprolol Tartrate 50 mg 02/05/20 12:00 02/12/20 06:37 Metoprolol PO Not Given Q6HR [facility] Midodrine 15 mg 02/04/20 16:00 02/11/20 16:30 Proamatine PO 15 mg TID@0800,1200,1600 CAR Administration Morphine Sulfate 2 mg 01/06/20 15:41 02/11/20 08:55 Morphine IV 2 mg Q4H PRN Administration Pain, Moderate (4-6) Multi-Ingred Cream/Lotion/Oil/Oint 1 applic 02/01/20 15:52 Artificial Tears Ophth Oint OU Q4HR PRN Dry Eye(s) Nitroglycerin 0.4 mg 01/19/20 21:09 01/20/20 03:03 Nitrostat SL 0.4 mg .Q5MIN PRN Administration Chest Pain Ondansetron HCl 4 mg 01/05/20 14:37 02/07/20 00:10 Zofran IV 4 mg Q8H PRN Administration Nausea And Vomiting Polyethylene Glycol 17 gm 12/04/19 22:00 02/11/20 22:14 Miralax 3350 PO Not Given QHS CAR Quetiapine Fumarate 300 mg 01/13/20 22:00 02/11/20 22:14 Seroquel PO Not Given BID CAR Scopolamine 1 each 01/07/20 20:00 01/07/20 21:08 Transderm-Scop TD 1 each Q72HR CAR Administration Simple Syrup 15 ml 01/09/20 12:01 Simple Syrup FEEDTUBE PRN PRN Hypoglycemia Simple Syrup 30 ml 01/09/20 12:01 Simple Syrup FEEDTUBE PRN PRN Hypoglycemia Sodium Bicarbonate 325 mg 01/09/20 12:01 Sodium Bicarbonate FEEDTUBE PRN PRN For Clogged Feeding Tube Sodium Chloride 10 ml 11/24/19 10:00 02/11/20 22:13 Sodium Chloride Flush Syringe 10 Ml IV 10 ml BID CAR Administration Tamsulosin HCl 0.8 mg 12/20/19 22:00 02/11/20 22:11 Flomax PO 0.8 mg QHS CAR Administration Nutrition/Malnutrition Assess - Dietary Evaluation Nutrition/Malnutrition Findings: Nutrition Notes Start: 11/24/19 12:22 Freq: Status: Active Protocol: Document 02/11/20 14:02 EN (Rec: 02/11/20 14:12 EN [email or web address]) Co-Sign 02/11/20 14:02 LP Nutrition Notes Initial or Follow up Reassessment Current Diagnosis Coronary Artery Disease,Heart Failure,Respiratory Failure, Stroke,Hyperlipidemia Other Pertinent Diagnosis Partial SBO, pneu, ventilated trach Current Diet Vital AF 1.2 at 75ml/hr Labs/Tests 02/09: Na 151 BUN 25 Cr 0.7 02/10: POC Glu 173 Pertinent Medications Lipitor Height 6 ft 2 in Weight 109.2 kg [place] Body Weight (kg) 86.36 BMI 30.9 Weight change and time frame Wt change noted. Weight Status Obese Subjective/Other Information F/u for TF tolerance and POC. Pt is back on vent. Per RN, TF is infusing at goal rate and pt is tolerating well. D/t hypernatremia, increase flush to 200ml q4h until resolved. Percent of energy/protein needs met: 99%/100% Burn Absent Trauma Absent GI Symptoms None Current % PO Negligible Minimum of two criteria Yes Muscle Mass Mild Depletion (non-severe) Fluid Accumulation Mild (non-severe) Reduced [place] Seamstress Strength Measurably Reduced (severe) #2 Nutrition Diagnosis Malnutrition Diagnosis Progress(for reassessment Continues documentation) #1 Nutrition Diagnosis Inadequate oral intake Diagnosis Progress(for reassessment Continues documentation) Is patient on ventilator? Yes Is Patient Ambulatory and/or Out of Bed No REE-([place] [facility]-confined to bed) 2352.840 Kcal/Kg value to use for calculation 20 Approximate Energy Requirements Using 2184 kcal/Kg Calculation Used for Recommendations Kcal/kg Additional Notes Protein needs are 117-147g (1. 2-1.5 g/kg AdBW of 97.78kg) Fluid needs are 1.5L Nutrition Intervention Change Diet Order: Continue TF via PEG Nutrition Support: Vital AF 1.2 at 75ml/hr. Flush 200ml q4h for hypernatremia Flush 100ml q4h once hypernatremia is resolved Kcal 2,160 Protein (gm) 135 Fluid (mL) 1,460 Goal #1 Meet at least 75% of pt's energy and protein needs Goal #2 Weight maintenance Anticipated Discharge Needs: unable to determine Follow-Up By: 02/15/20 Additional Comments F/u for TF tolerance and Na labs
[2020-02-12] MEDS: MIDODRINE 5 MG TAB PO SCH ×3 (08:53→18:12)
[2020-02-12] MEDS: GLYCOPYRROLATE 2 MG TAB PO SCH ×3 (08:53→22:46)
[2020-02-12] MEDS: LANSOPRAZOLE 30 MG SOLUTAB FEEDTUBE SCH (11:17)
[2020-02-12] MEDS: CLOPIDOGREL 75 MG TAB PO SCH (11:19)
[2020-02-12] MEDS: APIXABAN 5 MG TAB PO SCH ×2 (11:19→22:38)
[2020-02-12] MEDS: QUEtiapine 100 MG TAB PO SCH ×2 (11:19→22:38)
[2020-02-12] MEDS: MORPHINE 2 MG/1 ML INJ IV PRN (11:27)
--- NOTE | 2020-02-12 12:52 | Progress Note ---
Assessment and Plan - Patient Problems (1) Paroxysmal atrial fibrillation Current Visit: Yes Status: Acute Plan to address problem: Continue conservative cardiac medical management as previously outlined. Subjective Date of service: 02/12/20 Principal diagnosis: Ac hypoxemic resp failure; Pneumonia; PUI COVID-19; CHF; COPD; HTN Interval history: Patient is somnolent, remains in atrial fibrillation with well-controlled ventricular rate. Objective Vital Signs Temp Pulse Pulse Resp Resp Resp BP 02/12/20 12:18 105 H 86/65 02/12/20 11:31 108 H 28 H 98/70 02/12/20 11:27 23 02/12/20 11:00 108 H 21 102/61 02/12/20 10:30 99 H 26 H 96/63 02/12/20 10:00 91 H 22 96/77 02/12/20 09:30 104 H 28 H 100/70 02/12/20 09:01 109 H 29 H 89/69 02/12/20 08:31 117 H 21 89/69 02/12/20 08:01 104 H 22 80/56 02/12/20 08:00 22 22 02/12/20 07:55 103 H 80/56 02/12/20 07:30 87 25 H 80/56 02/12/20 07:00 88 22 87/60 02/12/20 06:37 100 H 94/67 02/12/20 06:30 100 H 23 94/67 02/12/20 06:05 118 H 18 24 24 02/12/20 06:01 118 H 14 100/65 02/12/20 05:50 103 H 90 18 02/12/20 05:30 94 H 25 H 100/65 02/12/20 05:00 103 H 28 H 97/72 02/12/20 04:31 127 H 29 H 106/69 02/12/20 04:30 103 H 90 18 02/12/20 04:24 116 H 97/65 02/12/20 04:01 98 H 24 97/65 02/12/20 03:57 97.8 F 02/12/20 03:30 96 H 26 H 111/68 02/12/20 03:00 115 H 30 H 114/69 02/12/20 02:30 113 H 29 H 99/71 02/12/20 02:00 104 H 90 18 102/80 11/20/20 01:30 116 H 30 H 102/80 02/12/20 01:00 107 H 29 H 106/70 02/12/20 00:50 90 18 02/12/20 00:30 90 27 H 24 24 103/75 02/12/20 00:20 90 18 02/12/20 00:15 90 106/70 02/12/20 00:05 104 H 117/68 02/12/20 00:00 116 H 24 117/68 02/11/20 23:30 111 H 31 H 95/71 02/11/20 23:07 98.8 F 02/11/20 23:02 140 H 29 H 85/56 02/11/20 23:00 120 H 30 H 95/71 02/11/20 22:41 108 H 29 H 95/71 02/11/20 22:30 119 H 30 H 95/71 02/11/20 22:27 103 H 22 94/56 02/11/20 22:10 90 18 02/11/20 22:00 92 H 25 H 94/56 02/11/20 21:30 79 25 H 95/59 02/11/20 21:00 85 30 H 77/55 02/11/20 20:50 104 H 24 24 02/11/20 20:30 96 H 31 H 92/61 02/11/20 20:21 02/11/20 20:08 104 H 95/59 02/11/20 20:00 98.8 F 97 H 32 H 105/76 02/11/20 19:30 115 H 34 H 105/76 02/11/20 18:30 111 H 34 H 116/44 02/11/20 18:00 146 H 35 H 129/93 02/11/20 17:33 128 H 113/84 02/11/20 17:32 131 H 113/84 02/11/20 17:30 129 H 30 H 113/84 02/11/20 17:00 114 H 20 110/80 02/11/20 16:30 140 H 36 H 82/57 02/11/20 16:26 130 H 02/11/20 16:00 98.7 F 148 H 103 H 37 H 104/74 02/11/20 15:30 131 H 17 104/74 02/11/20 15:00 108 H 29 H 116/70 11/19/20 14:30 124 H 29 H 117/88 02/11/20 14:00 132 H 32 H 88/60 02/11/20 13:58 138 H 88/60 02/11/20 13:30 118 H 22 88/60 02/11/20 13:00 119 H 31 H 110/68 Pulse Ox Pulse Ox 02/12/20 12:18 98 02/12/20 11:31 99 02/12/20 11:27 02/12/20 11:00 02/12/20 10:30 02/12/20 10:00 96 02/12/20 09:30 96 02/12/20 09:01 99 02/12/20 08:31 99 02/12/20 08:01 100 02/12/20 08:00 02/12/20 07:55 99 02/12/20 07:30 98 02/12/20 07:00 98 02/12/20 06:37 02/12/20 06:30 02/12/20 06:05 96 02/12/20 06:01 02/12/20 05:50 96 02/12/20 05:30 02/12/20 05:00 02/12/20 04:31 02/12/20 04:30 96 02/12/20 04:24 98 02/12/20 04:01 02/12/20 03:57 02/12/20 03:30 02/12/20 03:00 02/12/20 02:30 02/12/20 02:00 96 02/12/20 01:30 96 02/12/20 01:00 02/12/20 00:50 96 02/12/20 00:30 02/12/20 00:20 96 02/12/20 00:15 02/12/20 00:05 99 02/12/20 00:00 02/11/20 23:30 02/11/20 23:07 02/11/20 23:02 99 02/11/20 23:00 94 02/11/20 22:41 99 02/11/20 22:30 100 02/11/20 22:27 94 02/11/20 22:10 96 02/11/20 22:00 100 02/11/20 21:30 100 11/19/20 21:00 100 02/11/20 20:50 02/11/20 20:30 98 02/11/20 20:21 98 02/11/20 20:08 98 02/11/20 20:00 100 02/11/20 19:30 99 02/11/20 18:30 100 02/11/20 18:00 97 02/11/20 17:33 02/11/20 17:32 02/11/20 17:30 100 02/11/20 17:00 98 02/11/20 16:30 98 02/11/20 16:26 99 02/11/20 16:00 98 02/11/20 15:30 100 02/11/20 15:00 97 02/11/20 14:30 95 99 02/11/20 14:00 99 02/11/20 13:58 02/11/20 13:30 98 02/11/20 13:00 99 - Physical Examination General: Cachectic, Other (s/p trach) HEENT: Positive: PERRL Neck: Positive: neck supple Cardiac: Positive: irregularly irregular Lungs: Positive: Decreased Breath Sounds Neuro: Positive: Weakness Abdomen: Positive: Soft Skin: Positive: Clear Extremities: Absent: edema - Labs and Meds CBC 02/12/20 Range/Units 04:56 WBC 10.2 (4.5-11.0) K/mm3 RBC 4.04 (3.65-5.03) M/mm3 Hgb 9.9 L (11.8-15.2) gm/dl Hct 31.8 L (35.5-45.6) % Plt Count 272 (140-440) K/mm3 Lymph # (Auto) 2.6 (1.2-5.4) K/mm3 [place] # (Auto) 1.0 H (0.0-0.8) K/mm3 Eos # (Auto) 0.2 (0.0-0.4) K/mm3 Baso # (Auto) 0.1 (0.0-0.1) K/mm3 Comprehensive Metabolic Panel 02/12/20 Range/Units 04:56 Sodium 149 H (137-145) mmol/L Potassium 3.8 (3.6-5.0) mmol/L Chloride 108.6 H (98-107) mmol/L Carbon Dioxide 28 D (22-30) mmol/L BUN 28 H (9-20) mg/dL Creatinine 0.7 L (0.8-1.3) mg/dL Glucose 108 H (75-100) mg/dL Calcium 8.9 (8.4-10.2) mg/dL - Allied health notes Allied health notes reviewed: nursing
--- NOTE | 2020-02-12 13:08 | Progress Note ---
Assessment and Plan Acute hypoxemic respiratory failure Bilateral pneumonia, community acquired. Acute LLL branch P.E. Acute DVT Person under investigation for COVID-19 infection. Acute congestive heart failure exacerbation. History of cerebrovascular accident. Acute chronic obstructive pulmonary disease exacerbation. Hypertension and hypertensive urgency at presentation. History of arthritis. Leukocytosis. Lactic acidosis. Oropharyngeal dysphagia - wound care consult for trach stoma - continue Robinul & Scopolamine for secretion control - continue daily SAT's and SBT assessment as tolerated - continue care as below otherwise; - continue rate control per cardiology team - continue prn haldol for agitation to avoid hypoventilation (stopped Lorazepam) - continue Flomax - antiinfective's per ID rec's - Midodrine for BP support - prn mucomyst nebs re: secretions - continue full anticoagulation with Apixaban - continue seroquel for anxiolysis / delirium - COVID isolation per facility protocol - prn diuresis while following electrolytes / I's & O's - continue to wean oxygen for O2 sat's > 92% - continue bronchodilators with routine trach care and pulmonary hygiene per RT - continue Robinul & Scopolamine for secretion control - VAP bundle addressed (Aspiration precautions, HOB >40) - continue to wean per pulmonary driven protocols - sedation target is RASS 0 to -1 - continue prn analgesia per CPOT score - follow clinically re: fever curves / trend WBC - Avoid delirium (no benzodiazepines if they can be avoided) - Maintain sleep-wake cycle - enteral nutrition at goal rate as tolerated - continue accucheck's with glycemic control per SSI for target blood glucose goal of 140-180 mg/dL while critically ill; Avoid hypoglycemia - for VTE he is on IV Heparin - continue stress ulcer prophylaxis with Famotidine - continue mobility protocols for pressure ulcer prophylaxis - continue fall precautions - continue wound care management per RN / WCT - Supportive transfusions to keep HgB>7g/dL - CXR's and ABG's prn - Continue to monitor neurologic function - Continue chronic home medications - Continue all supportive care ........ re-evaluate in am & prn CONDITION: CRITICAL PROGNOSIS: GUARDED CODE STATUS: FULL CODE The high probability of a clinically significant, sudden or life threatening deterioration of the [Respiratory, cardiovascular & neurological] system(s) required my full and direct attention, intervention and personal management. The aggregate critical care time was [32] minutes without overlap. Time includes spent on [x] Data Review and interpretation [x] Patient assessment and monitoring of vital signs [x] Documentation [x] Medication orders and management Subjective Date of service: 02/12/20 Principal diagnosis: Ac hypoxemic resp failure; Pneumonia; PUI COVID-19; CHF; COPD; HTN Interval history: Patient is seen today for: Acute hypoxemic respiratory failure; Adan. Pneumonia (CAP); PUI COVID-19 infection; AE-CHF; AE-COPD; H/O CVA; HTN Seen and examined at bedside; 24 hour events reviewed; nursing and respiratory care staff consulted; no adverse overnight events reported to me; resting peacefully in bed; more hemodynamically stable today; did not tolerate SBT; remains lethargic; no emesis or overt aspiration Objective Vital Signs - 12hr 02/12/20 02/12/20 02/12/20 01:30 02:00 02:30 Temperature Pulse Rate 116 H 104 H 113 H Pulse Rate [ 90 From Monitor] Respiratory 30 H 18 29 H Rate Respiratory Rate [Abdomen] Respiratory Rate [ Generalized] Blood Pressure 102/80 102/80 99/71 O2 Sat by Pulse 96 96 Oximetry 02/12/20 02/12/20 02/12/20 03:00 03:30 03:57 Temperature 97.8 F Pulse Rate 115 H 96 H Pulse Rate [ From Monitor] Respiratory 30 H 26 H Rate Respiratory Rate [Abdomen] Respiratory Rate [ Generalized] Blood Pressure 114/69 111/68 O2 Sat by Pulse Oximetry 02/12/20 02/12/20 02/12/20 04:01 04:24 04:30 Temperature Pulse Rate 98 H 116 H 103 H Pulse Rate [ 90 From Monitor] Respiratory 24 18 Rate Respiratory Rate [Abdomen] Respiratory Rate [ Generalized] Blood Pressure 97/65 97/65 O2 Sat by Pulse 98 96 Oximetry 02/12/20 02/12/20 02/12/20 04:31 05:00 05:30 Temperature Pulse Rate 127 H 103 H 94 H Pulse Rate [ From Monitor] Respiratory 29 H 28 H 25 H Rate Respiratory Rate [Abdomen] Respiratory Rate [ Generalized] Blood Pressure 106/69 97/72 100/65 O2 Sat by Pulse Oximetry 02/12/20 02/12/20 02/12/20 05:50 06:01 06:05 Temperature Pulse Rate 103 H 118 H 118 H Pulse Rate [ 90 From Monitor] Respiratory 18 14 18 Rate Respiratory 24 Rate [Abdomen] Respiratory 24 Rate [ Generalized] Blood Pressure 100/65 O2 Sat by Pulse 96 96 Oximetry 02/12/20 02/12/20 02/12/20 06:30 06:37 07:00 Temperature Pulse Rate 100 H 100 H 88 Pulse Rate [ From Monitor] Respiratory 23 22 Rate Respiratory Rate [Abdomen] Respiratory Rate [ Generalized] Blood Pressure 94/67 94/67 87/60 O2 Sat by Pulse 98 Oximetry 02/12/20 02/12/20 02/12/20 07:30 07:55 08:00 Temperature Pulse Rate 87 103 H Pulse Rate [ From Monitor] Respiratory 25 H Rate Respiratory 22 Rate [Abdomen] Respiratory 22 Rate [ Generalized] Blood Pressure 80/56 80/56 O2 Sat by Pulse 98 99 Oximetry 02/12/20 02/12/20 02/12/20 08:01 08:31 09:01 Temperature Pulse Rate 104 H 117 H 109 H Pulse Rate [ From Monitor] Respiratory 22 21 29 H Rate Respiratory Rate [Abdomen] Respiratory Rate [ Generalized] Blood Pressure 80/56 89/69 89/69 O2 Sat by Pulse 100 99 99 Oximetry 02/12/20 02/12/20 02/12/20 09:30 10:00 10:30 Temperature Pulse Rate 104 H 91 H 99 H Pulse Rate [ From Monitor] Respiratory 28 H 22 26 H Rate Respiratory Rate [Abdomen] Respiratory Rate [ Generalized] Blood Pressure 100/70 96/77 96/63 O2 Sat by Pulse 96 96 Oximetry 02/12/20 02/12/20 02/12/20 11:00 11:27 11:31 Temperature Pulse Rate 108 H 108 H Pulse Rate [ From Monitor] Respiratory 21 23 28 H Rate Respiratory Rate [Abdomen] Respiratory Rate [ Generalized] Blood Pressure 102/61 98/70 O2 Sat by Pulse 99 Oximetry 02/12/20 12:18 Temperature Pulse Rate 105 H Pulse Rate [ From Monitor] Respiratory Rate Respiratory Rate [Abdomen] Respiratory Rate [ Generalized] Blood Pressure 86/65 O2 Sat by Pulse 98 Oximetry Constitutional: appears uncomfortable, other (elelelderly and obese male, normocephalic with mildly increased respiratory effort at rest) Eyes: non-icteric ENT: oropharynx moist, other (+ midline tracheostomy) Neck: supple, no JVD Effort: mildly labored Ascultation: Bilateral: diminished breath sounds, rhonchi (and referred upper airway sounds) Percussion: Bilateral: not dull Cardiovascular: irregular rhythm, other (flow murmur) Gastrointestinal: normoactive bowel sounds, soft, non-tender, non-distended (protuberant), other (protuberant; PEG in place) Integumentary: normal Extremities: no cyanosis, pulses normal, no ischemia or petechiae, edema (bilateral upper ) Neurologic: non-focal exam (moves extremities), pupils equal and round, CN II- XII normal, unable to assess Psychiatric: other (unable to assess re: AMS) CBC and BMP: 02/12/20 04:56 02/12/20 04:56 ABG, PT/INR, D-dimer: ABG ABG pH 7.502 (7.320-7.450) H 02/11/20 14:11 POC ABG pCO2 34.8 mmHg (32.0-48.0) 02/11/20 14:11 ABG pCO2 54.1 mm Hg 02/09/20 21:40 POC ABG pO2 77.7 mmHg (83-108) L 02/11/20 14:11 ABG pO2 59.8 mm Hg (80.0-90.0) L 02/09/20 21:40 POC ABG HCO3 26.7 02/11/20 14:11 ABG O2 Saturation 88.9 % (95.0-99.0) L 02/09/20 21:40 PT/INR, D-dimer PT 27.0 Sec. (12.2-14.9) H 02/07/20 15:03 INR 2.46 (0.87-1.13) H 02/07/20 15:03 Abnormal lab findings: Abnormal Labs 11/24/19 11/24/19 11/24/19 02:53 02:53 03:45 WBC 14.3 H RBC Hgb Hct MCHC RDW 17.2 H MCV MCH Lymph % (Auto) Carter % (Auto) Carter # Eos # Lymph # (Auto) Carter # (Auto) Eos # (Auto) Seg Neutrophils % Seg Neuts % (Manual) Baso # (Auto) Lymphocytes % (Manual) Monocytes % (Manual) Eosinophils % (Manual) Basophils % (Manual) Seg Neutrophils # Seg Neutrophils # Man 8.3 H Lymphocytes # (Manual) Monocytes # (Manual) 0.9 H Eosinophils # (Manual) Nucleated RBC % Basophils # (Manual) PT INR APTT Heparin Anti-Xa Level ABG pH 7.313 L POC ABG pO2 ABG pO2 102.8 H ABG HCO3 ABG O2 Saturation ABG Base Excess -2.9 L POC ABG pCO2 ABG Hemoglobin ABG Oxyhemoglobin ABG Chloride ABG Glucose Oxyhemoglobin 93.9 L Sodium Potassium Chloride Carbon Dioxide BUN Creatinine Glucose 195 H POC Glucose Lactic Acid Calcium Phosphorus Magnesium AST ALT Lactate Dehydrogenase Total Bilirubin Direct Bilirubin CK-MB (CK-2) 4.3 H C-Reactive Protein NT-Pro-B Natriuret Pep 1181 H Total Protein Albumin Arterial Blood Glucose Urine WBC (Auto) Urine Creatinine 11/24/19 11/24/19 11/24/19 04:53 04:53 10:37 WBC RBC Hgb Hct MCHC RDW MCV MCH Lymph % (Auto) Carter % (Auto) Carter # Eos # Lymph # (Auto) Carter # (Auto) Eos # (Auto) Seg Neutrophils % Seg Neuts % (Manual) Baso # (Auto) Lymphocytes % (Manual) Monocytes % (Manual) Eosinophils % (Manual) Basophils % (Manual) Seg Neutrophils # Seg Neutrophils # Man Lymphocytes # (Manual) Monocytes # (Manual) Eosinophils # (Manual) Nucleated RBC % Basophils # (Manual) PT INR APTT Heparin Anti-Xa Level ABG pH POC ABG pO2 ABG pO2 ABG HCO3 ABG O2 Saturation ABG Base Excess POC ABG pCO2 ABG Hemoglobin ABG Oxyhemoglobin ABG Chloride ABG Glucose Oxyhemoglobin Sodium Potassium Chloride Carbon Dioxide BUN Creatinine Glucose 162 H POC Glucose Lactic Acid 2.40 H* 2.50 H* Calcium Phosphorus Magnesium AST ALT Lactate Dehydrogenase 240 H Total Bilirubin Direct Bilirubin CK-MB (CK-2) C-Reactive Protein NT-Pro-B Natriuret Pep Total Protein Albumin Arterial Blood Glucose Urine WBC (Auto) Urine Creatinine 11/24/19 11/24/19 11/24/19 12:21 14:50 19:54 WBC RBC Hgb Hct MCHC RDW MCV MCH Lymph % (Auto) Carter % (Auto) Carter # Eos # Lymph # (Auto) Carter # (Auto) Eos # (Auto) Seg Neutrophils % Seg Neuts % (Manual) Baso # (Auto) Lymphocytes % (Manual) Monocytes % (Manual) Eosinophils % (Manual) Basophils % (Manual) Seg Neutrophils # Seg Neutrophils # Man Lymphocytes # (Manual) Monocytes # (Manual) Eosinophils # (Manual) Nucleated RBC % Basophils # (Manual) PT INR APTT Heparin Anti-Xa Level ABG pH POC ABG pO2 ABG pO2 ABG HCO3 ABG O2 Saturation ABG Base Excess POC ABG pCO2 ABG Hemoglobin ABG Oxyhemoglobin ABG Chloride ABG Glucose Oxyhemoglobin Sodium Potassium Chloride Carbon Dioxide BUN Creatinine Glucose POC Glucose 145 H 143 H 124 H Lactic Acid Calcium Phosphorus Magnesium AST ALT Lactate Dehydrogenase Total Bilirubin Direct Bilirubin CK-MB (CK-2) C-Reactive Protein NT-Pro-B Natriuret Pep Total Protein Albumin Arterial Blood Glucose Urine WBC (Auto) Urine Creatinine 11/25/19 11/25/19 11/25/19 00:18 03:18 05:11 WBC 13.7 H RBC Hgb Hct MCHC RDW 17.1 H MCV MCH Lymph % (Auto) 10.8 L Carter % (Auto) 8.7 H Carter # 1.2 H Eos # Lymph # (Auto) Carter # (Auto) Eos # (Auto) Seg Neutrophils % 80.2 H Seg Neuts % (Manual) Baso # (Auto) Lymphocytes % (Manual) Monocytes % (Manual) Eosinophils % (Manual) Basophils % (Manual) Seg Neutrophils # 11.0 H Seg Neutrophils # Man Lymphocytes # (Manual) Monocytes # (Manual) Eosinophils # (Manual) Nucleated RBC % Basophils # (Manual) PT INR APTT Heparin Anti-Xa Level ABG pH 7.333 L POC ABG pO2 ABG pO2 61.2 L ABG HCO3 ABG O2 Saturation 90.2 L ABG Base Excess POC ABG pCO2 ABG Hemoglobin 13.7 L ABG Oxyhemoglobin ABG Chloride ABG Glucose Oxyhemoglobin 88.2 L Sodium Potassium Chloride Carbon Dioxide BUN Creatinine Glucose POC Glucose 109 H Lactic Acid Calcium Phosphorus Magnesium AST ALT Lactate Dehydrogenase Total Bilirubin Direct Bilirubin CK-MB (CK-2) C-Reactive Protein NT-Pro-B Natriuret Pep Total Protein Albumin Arterial Blood Glucose Urine WBC (Auto) Urine Creatinine 11/25/19 11/25/19 11/26/19 05:11 11:40 03:12 WBC RBC Hgb Hct MCHC RDW MCV MCH Lymph % (Auto) Carter % (Auto) Carter # Eos # Lymph # (Auto) Carter # (Auto) Eos # (Auto) Seg Neutrophils % Seg Neuts % (Manual) Baso # (Auto) Lymphocytes % (Manual) Monocytes % (Manual) Eosinophils % (Manual) Basophils % (Manual) Seg Neutrophils # Seg Neutrophils # Man Lymphocytes # (Manual) Monocytes # (Manual) Eosinophils # (Manual) Nucleated RBC % Basophils # (Manual) PT INR APTT Heparin Anti-Xa Level ABG pH POC ABG pO2 ABG pO2 155.1 H ABG HCO3 27.8 H ABG O2 Saturation ABG Base Excess POC ABG pCO2 ABG Hemoglobin 12.2 L ABG Oxyhemoglobin ABG Chloride ABG Glucose Oxyhemoglobin Sodium Potassium Chloride Carbon Dioxide BUN 23 H Creatinine Glucose 110 H POC Glucose 108 H Lactic Acid Calcium Phosphorus Magnesium AST ALT Lactate Dehydrogenase Total Bilirubin Direct Bilirubin CK-MB (CK-2) C-Reactive Protein NT-Pro-B Natriuret Pep Total Protein Albumin Arterial Blood Glucose Urine WBC (Auto) Urine Creatinine 11/26/19 11/26/19 11/26/19 06:17 10:43 10:43 WBC 11.4 H RBC Hgb Hct MCHC RDW 17.1 H MCV MCH Lymph % (Auto) Carter % (Auto) Carter # Eos # Lymph # (Auto) Carter # (Auto) Eos # (Auto) Seg Neutrophils % Seg Neuts % (Manual) Baso # (Auto) Lymphocytes % (Manual) Monocytes % (Manual) Eosinophils % (Manual) Basophils % (Manual) Seg Neutrophils # Seg Neutrophils # Man Lymphocytes # (Manual) Monocytes # (Manual) Eosinophils # (Manual) Nucleated RBC % Basophils # (Manual) PT INR APTT Heparin Anti-Xa Level ABG pH POC ABG pO2 ABG pO2 ABG HCO3 ABG O2 Saturation ABG Base Excess POC ABG pCO2 ABG Hemoglobin ABG Oxyhemoglobin ABG Chloride ABG Glucose Oxyhemoglobin Sodium Potassium Chloride Carbon Dioxide BUN 29 H Creatinine Glucose POC Glucose 107 H Lactic Acid Calcium Phosphorus Magnesium AST ALT Lactate Dehydrogenase Total Bilirubin Direct Bilirubin CK-MB (CK-2) C-Reactive Protein NT-Pro-B Natriuret Pep Total Protein Albumin Arterial Blood Glucose Urine WBC (Auto) Urine Creatinine 11/26/19 11/27/19 11/27/19 17:11 01:53 04:11 WBC RBC Hgb Hct MCHC RDW MCV MCH Lymph % (Auto) Carter % (Auto) Carter # Eos # Lymph # (Auto) Carter # (Auto) Eos # (Auto) Seg Neutrophils % Seg Neuts % (Manual) Baso # (Auto) Lymphocytes % (Manual) Monocytes % (Manual) Eosinophils % (Manual) Basophils % (Manual) Seg Neutrophils # Seg Neutrophils # Man Lymphocytes # (Manual) Monocytes # (Manual) Eosinophils # (Manual) Nucleated RBC % Basophils # (Manual) PT INR APTT Heparin Anti-Xa Level ABG pH POC ABG pO2 ABG pO2 ABG HCO3 29.2 H ABG O2 Saturation ABG Base Excess 3.4 H POC ABG pCO2 ABG Hemoglobin 13.3 L ABG Oxyhemoglobin ABG Chloride ABG Glucose Oxyhemoglobin 94.5 L Sodium Potassium Chloride Carbon Dioxide BUN Creatinine Glucose POC Glucose 113 H 108 H Lactic Acid Calcium Phosphorus Magnesium AST ALT Lactate Dehydrogenase Total Bilirubin Direct Bilirubin CK-MB (CK-2) C-Reactive Protein NT-Pro-B Natriuret Pep Total Protein Albumin Arterial Blood Glucose Urine WBC (Auto) Urine Creatinine 11/27/19 11/28/19 11/28/19 05:27 05:00 05:25 WBC RBC Hgb Hct MCHC RDW MCV MCH Lymph % (Auto) Carter % (Auto) Carter # Eos # Lymph # (Auto) Carter # (Auto) Eos # (Auto) Seg Neutrophils % Seg Neuts % (Manual) Baso # (Auto) Lymphocytes % (Manual) Monocytes % (Manual) Eosinophils % (Manual) Basophils % (Manual) Seg Neutrophils # Seg Neutrophils # Man Lymphocytes # (Manual) Monocytes # (Manual) Eosinophils # (Manual) Nucleated RBC % Basophils # (Manual) PT INR APTT Heparin Anti-Xa Level ABG pH POC ABG pO2 68.1 L ABG pO2 ABG HCO3 ABG O2 Saturation ABG Base Excess POC ABG pCO2 ABG Hemoglobin ABG Oxyhemoglobin 91.2 L ABG Chloride ABG Glucose Oxyhemoglobin Sodium Potassium Chloride Carbon Dioxide BUN Creatinine Glucose POC Glucose 111 H 110 H Lactic Acid Calcium Phosphorus Magnesium AST ALT Lactate Dehydrogenase Total Bilirubin Direct Bilirubin CK-MB (CK-2) C-Reactive Protein NT-Pro-B Natriuret Pep Total Protein Albumin Arterial Blood Glucose Urine WBC (Auto) Urine Creatinine 11/28/19 11/28/19 11/28/19 12:08 13:47 13:47 WBC 11.3 H RBC Hgb Hct MCHC RDW 16.1 H MCV MCH Lymph % (Auto) Carter % (Auto) 9.9 H Carter # 1.1 H Eos # Lymph # (Auto) Carter # (Auto) Eos # (Auto) Seg Neutrophils % 71.4 H Seg Neuts % (Manual) Baso # (Auto) Lymphocytes % (Manual) Monocytes % (Manual) Eosinophils % (Manual) Basophils % (Manual) Seg Neutrophils # 8.1 H Seg Neutrophils # Man Lymphocytes # (Manual) Monocytes # (Manual) Eosinophils # (Manual) Nucleated RBC % Basophils # (Manual) PT INR APTT Heparin Anti-Xa Level ABG pH POC ABG pO2 ABG pO2 ABG HCO3 ABG O2 Saturation ABG Base Excess POC ABG pCO2 ABG Hemoglobin ABG Oxyhemoglobin ABG Chloride ABG Glucose Oxyhemoglobin Sodium Potassium Chloride Carbon Dioxide BUN 23 H Creatinine Glucose 123 H POC Glucose 112 H Lactic Acid Calcium Phosphorus Magnesium AST ALT Lactate Dehydrogenase Total Bilirubin Direct Bilirubin CK-MB (CK-2) C-Reactive Protein NT-Pro-B Natriuret Pep Total Protein Albumin 3.7 L Arterial Blood Glucose Urine WBC (Auto) Urine Creatinine 11/28/19 11/29/19 11/29/19 17:26 03:55 17:04 WBC RBC Hgb Hct MCHC RDW MCV MCH Lymph % (Auto) Carter % (Auto) Carter # Eos # Lymph # (Auto) Carter # (Auto) Eos # (Auto) Seg Neutrophils % Seg Neuts % (Manual) Baso # (Auto) Lymphocytes % (Manual) Monocytes % (Manual) Eosinophils % (Manual) Basophils % (Manual) Seg Neutrophils # Seg Neutrophils # Man Lymphocytes # (Manual) Monocytes # (Manual) Eosinophils # (Manual) Nucleated RBC % Basophils # (Manual) PT INR APTT Heparin Anti-Xa Level ABG pH POC ABG pO2 ABG pO2 65.7 L ABG HCO3 28.3 H ABG O2 Saturation 93.9 L ABG Base Excess 3.6 H POC ABG pCO2 ABG Hemoglobin 13.3 L ABG Oxyhemoglobin ABG Chloride ABG Glucose Oxyhemoglobin 91.5 L Sodium Potassium Chloride Carbon Dioxide BUN Creatinine Glucose POC Glucose 123 H 119 H Lactic Acid Calcium Phosphorus Magnesium AST ALT Lactate Dehydrogenase Total Bilirubin Direct Bilirubin CK-MB (CK-2) C-Reactive Protein NT-Pro-B Natriuret Pep Total Protein Albumin Arterial Blood Glucose Urine WBC (Auto) Urine Creatinine 11/30/19 11/30/19 11/30/19 04:17 04:17 04:56 WBC 13.4 H RBC Hgb Hct MCHC RDW 15.6 H MCV MCH Lymph % (Auto) Carter % (Auto) Carter # Eos # Lymph # (Auto) Carter # (Auto) Eos # (Auto) Seg Neutrophils % Seg Neuts % (Manual) Baso # (Auto) Lymphocytes % (Manual) Monocytes % (Manual) Eosinophils % (Manual) Basophils % (Manual) Seg Neutrophils # Seg Neutrophils # Man Lymphocytes # (Manual) Monocytes # (Manual) Eosinophils # (Manual) Nucleated RBC % Basophils # (Manual) PT INR APTT Heparin Anti-Xa Level ABG pH POC ABG pO2 ABG pO2 56.3 L ABG HCO3 29.3 H ABG O2 Saturation 91.5 L ABG Base Excess 4.7 H POC ABG pCO2 ABG Hemoglobin 12.1 L ABG Oxyhemoglobin ABG Chloride ABG Glucose Oxyhemoglobin 89.2 L Sodium 147 H Potassium Chloride Carbon Dioxide BUN 30 H Creatinine Glucose 124 H POC Glucose Lactic Acid Calcium Phosphorus Magnesium AST ALT Lactate Dehydrogenase Total Bilirubin Direct Bilirubin CK-MB (CK-2) C-Reactive Protein NT-Pro-B Natriuret Pep Total Protein Albumin 3.8 L Arterial Blood Glucose Urine WBC (Auto) Urine Creatinine 11/30/19 11/30/19 11/30/19 05:51 11:54 18:17 WBC RBC Hgb Hct MCHC RDW MCV MCH Lymph % (Auto) Carter % (Auto) Carter # Eos # Lymph # (Auto) Carter # (Auto) Eos # (Auto) Seg Neutrophils % Seg Neuts % (Manual) Baso # (Auto) Lymphocytes % (Manual) Monocytes % (Manual) Eosinophils % (Manual) Basophils % (Manual) Seg Neutrophils # Seg Neutrophils # Man Lymphocytes # (Manual) Monocytes # (Manual) Eosinophils # (Manual) Nucleated RBC % Basophils # (Manual) PT INR APTT Heparin Anti-Xa Level ABG pH POC ABG pO2 ABG pO2 ABG HCO3 ABG O2 Saturation ABG Base Excess POC ABG pCO2 ABG Hemoglobin ABG Oxyhemoglobin ABG Chloride ABG Glucose Oxyhemoglobin Sodium Potassium Chloride Carbon Dioxide BUN Creatinine Glucose POC Glucose 127 H 115 H 143 H Lactic Acid Calcium Phosphorus Magnesium AST ALT Lactate Dehydrogenase Total Bilirubin Direct Bilirubin CK-MB (CK-2) C-Reactive Protein NT-Pro-B Natriuret Pep Total Protein Albumin Arterial Blood Glucose Urine WBC (Auto) Urine Creatinine 12/01/19 12/01/19 12/01/19 01:18 05:22 12:16 WBC RBC Hgb Hct MCHC RDW MCV MCH Lymph % (Auto) Carter % (Auto) Carter # Eos # Lymph # (Auto) Carter # (Auto) Eos # (Auto) Seg Neutrophils % Seg Neuts % (Manual) Baso # (Auto) Lymphocytes % (Manual) Monocytes % (Manual) Eosinophils % (Manual) Basophils % (Manual) Seg Neutrophils # Seg Neutrophils # Man Lymphocytes # (Manual) Monocytes # (Manual) Eosinophils # (Manual) Nucleated RBC % Basophils # (Manual) PT INR APTT Heparin Anti-Xa Level ABG pH POC ABG pO2 ABG pO2 ABG HCO3 ABG O2 Saturation ABG Base Excess POC ABG pCO2 ABG Hemoglobin ABG Oxyhemoglobin ABG Chloride ABG Glucose Oxyhemoglobin Sodium Potassium 3.5 L Chloride 107.8 H Carbon Dioxide BUN 37 H Creatinine Glucose 157 H POC Glucose 118 H 148 H Lactic Acid Calcium 8.2 L D Phosphorus Magnesium AST 48 H ALT 60 H Lactate Dehydrogenase 194 H Total Bilirubin Direct Bilirubin CK-MB (CK-2) C-Reactive Protein 8.50 H NT-Pro-B Natriuret Pep Total Protein 5.5 L Albumin 2.8 L Arterial Blood Glucose Urine WBC (Auto) Urine Creatinine 12/01/19 12/02/19 12/02/19 18:04 00:05 05:16 WBC 11.4 H RBC Hgb Hct MCHC RDW 15.9 H MCV MCH Lymph % (Auto) Carter % (Auto) 9.9 H Carter # 1.1 H Eos # Lymph # (Auto) Carter # (Auto) Eos # (Auto) Seg Neutrophils % 70.3 H Seg Neuts % (Manual) Baso # (Auto) Lymphocytes % (Manual) Monocytes % (Manual) Eosinophils % (Manual) Basophils % (Manual) Seg Neutrophils # 8.0 H Seg Neutrophils # Man Lymphocytes # (Manual) Monocytes # (Manual) Eosinophils # (Manual) Nucleated RBC % Basophils # (Manual) PT INR APTT Heparin Anti-Xa Level ABG pH POC ABG pO2 ABG pO2 ABG HCO3 ABG O2 Saturation ABG Base Excess POC ABG pCO2 ABG Hemoglobin ABG Oxyhemoglobin ABG Chloride ABG Glucose Oxyhemoglobin Sodium Potassium Chloride Carbon Dioxide BUN Creatinine Glucose POC Glucose 143 H 107 H Lactic Acid Calcium Phosphorus Magnesium AST ALT Lactate Dehydrogenase Total Bilirubin Direct Bilirubin CK-MB (CK-2) C-Reactive Protein NT-Pro-B Natriuret Pep Total Protein Albumin Arterial Blood Glucose Urine WBC (Auto) Urine Creatinine 12/02/19 12/02/19 12/02/19 05:16 06:03 11:52 WBC RBC Hgb Hct MCHC RDW MCV MCH Lymph % (Auto) Carter % (Auto) Carter # Eos # Lymph # (Auto) Carter # (Auto) Eos # (Auto) Seg Neutrophils % Seg Neuts % (Manual) Baso # (Auto) Lymphocytes % (Manual) Monocytes % (Manual) Eosinophils % (Manual) Basophils % (Manual) Seg Neutrophils # Seg Neutrophils # Man Lymphocytes # (Manual) Monocytes # (Manual) Eosinophils # (Manual) Nucleated RBC % Basophils # (Manual) PT INR APTT Heparin Anti-Xa Level ABG pH POC ABG pO2 ABG pO2 ABG HCO3 ABG O2 Saturation ABG Base Excess POC ABG pCO2 ABG Hemoglobin ABG Oxyhemoglobin ABG Chloride ABG Glucose Oxyhemoglobin Sodium 146 H Potassium Chloride Carbon Dioxide BUN 28 H Creatinine Glucose 123 H POC Glucose 110 H 152 H Lactic Acid Calcium Phosphorus Magnesium AST ALT Lactate Dehydrogenase Total Bilirubin Direct Bilirubin CK-MB (CK-2) C-Reactive Protein NT-Pro-B Natriuret Pep Total Protein Albumin Arterial Blood Glucose Urine WBC (Auto) Urine Creatinine 12/02/19 12/02/19 12/02/19 12:58 17:58 23:36 WBC RBC Hgb Hct MCHC RDW MCV MCH Lymph % (Auto) Carter % (Auto) Carter # Eos # Lymph # (Auto) Carter # (Auto) Eos # (Auto) Seg Neutrophils % Seg Neuts % (Manual) Baso # (Auto) Lymphocytes % (Manual) Monocytes % (Manual) Eosinophils % (Manual) Basophils % (Manual) Seg Neutrophils # Seg Neutrophils # Man Lymphocytes # (Manual) Monocytes # (Manual) Eosinophils # (Manual) Nucleated RBC % Basophils # (Manual) PT INR APTT Heparin Anti-Xa Level ABG pH POC ABG pO2 78.1 L ABG pO2 ABG HCO3 ABG O2 Saturation ABG Base Excess POC ABG pCO2 ABG Hemoglobin ABG Oxyhemoglobin ABG Chloride ABG Glucose Oxyhemoglobin Sodium Potassium Chloride Carbon Dioxide BUN Creatinine Glucose POC Glucose 120 H 123 H Lactic Acid Calcium Phosphorus Magnesium AST ALT Lactate Dehydrogenase Total Bilirubin Direct Bilirubin CK-MB (CK-2) C-Reactive Protein NT-Pro-B Natriuret Pep Total Protein Albumin Arterial Blood Glucose Urine WBC (Auto) Urine Creatinine 12/03/19 12/03/19 12/03/19 06:03 06:14 11:46 WBC RBC Hgb Hct MCHC RDW MCV MCH Lymph % (Auto) Carter % (Auto) Carter # Eos # Lymph # (Auto) Carter # (Auto) Eos # (Auto) Seg Neutrophils % Seg Neuts % (Manual) Baso # (Auto) Lymphocytes % (Manual) Monocytes % (Manual) Eosinophils % (Manual) Basophils % (Manual) Seg Neutrophils # Seg Neutrophils # Man Lymphocytes # (Manual) Monocytes # (Manual) Eosinophils # (Manual) Nucleated RBC % Basophils # (Manual) PT INR APTT Heparin Anti-Xa Level ABG pH POC ABG pO2 ABG pO2 ABG HCO3 ABG O2 Saturation ABG Base Excess POC ABG pCO2 ABG Hemoglobin ABG Oxyhemoglobin ABG Chloride ABG Glucose Oxyhemoglobin Sodium Potassium Chloride Carbon Dioxide BUN Creatinine Glucose POC Glucose 142 H 130 H Lactic Acid Calcium Phosphorus Magnesium AST ALT Lactate Dehydrogenase Total Bilirubin Direct Bilirubin CK-MB (CK-2) C-Reactive Protein NT-Pro-B Natriuret Pep Total Protein Albumin Arterial Blood Glucose Urine WBC (Auto) 8.0 H Urine Creatinine 12/03/19 12/03/19 12/04/19 15:50 17:39 00:04 WBC RBC Hgb Hct MCHC RDW MCV MCH Lymph % (Auto) Carter % (Auto) Carter # Eos # Lymph # (Auto) Carter # (Auto) Eos # (Auto) Seg Neutrophils % Seg Neuts % (Manual) Baso # (Auto) Lymphocytes % (Manual) Monocytes % (Manual) Eosinophils % (Manual) Basophils % (Manual) Seg Neutrophils # Seg Neutrophils # Man Lymphocytes # (Manual) Monocytes # (Manual) Eosinophils # (Manual) Nucleated RBC % Basophils # (Manual) PT INR APTT Heparin Anti-Xa Level ABG pH POC ABG pO2 ABG pO2 ABG HCO3 ABG O2 Saturation ABG Base Excess POC ABG pCO2 ABG Hemoglobin ABG Oxyhemoglobin ABG Chloride ABG Glucose Oxyhemoglobin Sodium Potassium Chloride Carbon Dioxide BUN Creatinine Glucose POC Glucose 146 H 133 H Lactic Acid Calcium Phosphorus 2.40 L Magnesium AST ALT Lactate Dehydrogenase Total Bilirubin Direct Bilirubin CK-MB (CK-2) C-Reactive Protein NT-Pro-B Natriuret Pep Total Protein Albumin Arterial Blood Glucose Urine WBC (Auto) Urine Creatinine 12/04/19 12/04/19 12/04/19 03:58 03:58 05:22 WBC 12.5 H RBC Hgb 11.2 L Hct 35.2 L MCHC RDW 16.0 H MCV MCH Lymph % (Auto) Carter % (Auto) 9.6 H Carter # 1.2 H Eos # 0.5 H Lymph # (Auto) Carter # (Auto) Eos # (Auto) Seg Neutrophils % Seg Neuts % (Manual) Baso # (Auto) Lymphocytes % (Manual) Monocytes % (Manual) Eosinophils % (Manual) Basophils % (Manual) Seg Neutrophils # 8.6 H Seg Neutrophils # Man Lymphocytes # (Manual) Monocytes # (Manual) Eosinophils # (Manual) Nucleated RBC % Basophils # (Manual) PT INR APTT Heparin Anti-Xa Level ABG pH POC ABG pO2 ABG pO2 ABG HCO3 ABG O2 Saturation ABG Base Excess POC ABG pCO2 ABG Hemoglobin ABG Oxyhemoglobin ABG Chloride ABG Glucose Oxyhemoglobin Sodium 146 H Potassium Chloride 108.6 H Carbon Dioxide BUN 30 H Creatinine 0.7 L Glucose 121 H POC Glucose 132 H Lactic Acid Calcium Phosphorus Magnesium AST ALT Lactate Dehydrogenase Total Bilirubin Direct Bilirubin CK-MB (CK-2) C-Reactive Protein NT-Pro-B Natriuret Pep Total Protein Albumin Arterial Blood Glucose Urine WBC (Auto) Urine Creatinine 12/04/19 12/04/19 12/05/19 13:26 18:43 00:19 WBC RBC Hgb Hct MCHC RDW MCV MCH Lymph % (Auto) Carter % (Auto) Carter # Eos # Lymph # (Auto) Carter # (Auto) Eos # (Auto) Seg Neutrophils % Seg Neuts % (Manual) Baso # (Auto) Lymphocytes % (Manual) Monocytes % (Manual) Eosinophils % (Manual) Basophils % (Manual) Seg Neutrophils # Seg Neutrophils # Man Lymphocytes # (Manual) Monocytes # (Manual) Eosinophils # (Manual) Nucleated RBC % Basophils # (Manual) PT INR APTT Heparin Anti-Xa Level ABG pH POC ABG pO2 ABG pO2 ABG HCO3 ABG O2 Saturation ABG Base Excess POC ABG pCO2 ABG Hemoglobin ABG Oxyhemoglobin ABG Chloride ABG Glucose Oxyhemoglobin Sodium Potassium Chloride Carbon Dioxide BUN Creatinine Glucose POC Glucose 185 H 156 H 150 H Lactic Acid Calcium Phosphorus Magnesium AST ALT Lactate Dehydrogenase Total Bilirubin Direct Bilirubin CK-MB (CK-2) C-Reactive Protein NT-Pro-B Natriuret Pep Total Protein Albumin Arterial Blood Glucose Urine WBC (Auto) Urine Creatinine 12/05/19 12/05/19 12/05/19 03:37 03:37 05:14 WBC 16.3 H RBC Hgb 11.4 L Hct MCHC RDW 15.6 H MCV MCH Lymph % (Auto) 9.9 L Carter % (Auto) 9.7 H Carter # 1.6 H Eos # Lymph # (Auto) Carter # (Auto) Eos # (Auto) Seg Neutrophils % 78.0 H Seg Neuts % (Manual) Baso # (Auto) Lymphocytes % (Manual) Monocytes % (Manual) Eosinophils % (Manual) Basophils % (Manual) Seg Neutrophils # 12.7 H Seg Neutrophils # Man Lymphocytes # (Manual) Monocytes # (Manual) Eosinophils # (Manual) Nucleated RBC % Basophils # (Manual) PT INR APTT Heparin Anti-Xa Level ABG pH POC ABG pO2 ABG pO2 ABG HCO3 ABG O2 Saturation ABG Base Excess POC ABG pCO2 ABG Hemoglobin ABG Oxyhemoglobin ABG Chloride ABG Glucose Oxyhemoglobin Sodium 146 H Potassium Chloride 107.2 H Carbon Dioxide BUN 27 H Creatinine 0.7 L Glucose 171 H POC Glucose 168 H Lactic Acid Calcium Phosphorus Magnesium AST ALT Lactate Dehydrogenase Total Bilirubin Direct Bilirubin CK-MB (CK-2) C-Reactive Protein NT-Pro-B Natriuret Pep Total Protein Albumin Arterial Blood Glucose Urine WBC (Auto) Urine Creatinine 12/05/19 12/05/19 12/05/19 12:31 18:10 23:58 WBC RBC Hgb Hct MCHC RDW MCV MCH Lymph % (Auto) Carter % (Auto) Carter # Eos # Lymph # (Auto) Carter # (Auto) Eos # (Auto) Seg Neutrophils % Seg Neuts % (Manual) Baso # (Auto) Lymphocytes % (Manual) Monocytes % (Manual) Eosinophils % (Manual) Basophils % (Manual) Seg Neutrophils # Seg Neutrophils # Man Lymphocytes # (Manual) Monocytes # (Manual) Eosinophils # (Manual) Nucleated RBC % Basophils # (Manual) PT INR APTT Heparin Anti-Xa Level ABG pH POC ABG pO2 ABG pO2 ABG HCO3 ABG O2 Saturation ABG Base Excess POC ABG pCO2 ABG Hemoglobin ABG Oxyhemoglobin ABG Chloride ABG Glucose Oxyhemoglobin Sodium Potassium Chloride Carbon Dioxide BUN Creatinine Glucose POC Glucose 159 H 198 H 115 H Lactic Acid Calcium Phosphorus Magnesium AST ALT Lactate Dehydrogenase Total Bilirubin Direct Bilirubin CK-MB (CK-2) C-Reactive Protein NT-Pro-B Natriuret Pep Total Protein Albumin Arterial Blood Glucose Urine WBC (Auto) Urine Creatinine 12/06/19 12/06/19 12/06/19 05:24 05:24 05:25 WBC 14.9 H RBC Hgb 10.8 L Hct 34.0 L MCHC RDW 15.6 H MCV MCH Lymph % (Auto) 10.7 L Carter % (Auto) 8.3 H Carter # 1.2 H Eos # Lymph # (Auto) Carter # (Auto) Eos # (Auto) Seg Neutrophils % 78.7 H Seg Neuts % (Manual) Baso # (Auto) Lymphocytes % (Manual) Monocytes % (Manual) Eosinophils % (Manual) Basophils % (Manual) Seg Neutrophils # 11.7 H Seg Neutrophils # Man Lymphocytes # (Manual) Monocytes # (Manual) Eosinophils # (Manual) Nucleated RBC % Basophils # (Manual) PT INR APTT Heparin Anti-Xa Level ABG pH POC ABG pO2 ABG pO2 ABG HCO3 ABG O2 Saturation ABG Base Excess POC ABG pCO2 ABG Hemoglobin ABG Oxyhemoglobin ABG Chloride ABG Glucose Oxyhemoglobin Sodium 148 H Potassium 5.1 H Chloride 107.6 H Carbon Dioxide BUN 27 H Creatinine 0.7 L Glucose 155 H POC Glucose 157 H Lactic Acid Calcium Phosphorus Magnesium AST ALT Lactate Dehydrogenase Total Bilirubin Direct Bilirubin CK-MB (CK-2) C-Reactive Protein NT-Pro-B Natriuret Pep Total Protein Albumin Arterial Blood Glucose Urine WBC (Auto) Urine Creatinine 12/07/19 12/07/19 12/07/19 00:13 05:34 11:33 WBC RBC Hgb Hct MCHC RDW MCV MCH Lymph % (Auto) Carter % (Auto) Carter # Eos # Lymph # (Auto) Carter # (Auto) Eos # (Auto) Seg Neutrophils % Seg Neuts % (Manual) Baso # (Auto) Lymphocytes % (Manual) Monocytes % (Manual) Eosinophils % (Manual) Basophils % (Manual) Seg Neutrophils # Seg Neutrophils # Man Lymphocytes # (Manual) Monocytes # (Manual) Eosinophils # (Manual) Nucleated RBC % Basophils # (Manual) PT INR APTT Heparin Anti-Xa Level ABG pH POC ABG pO2 ABG pO2 ABG HCO3 ABG O2 Saturation ABG Base Excess POC ABG pCO2 ABG Hemoglobin ABG Oxyhemoglobin ABG Chloride ABG Glucose Oxyhemoglobin Sodium Potassium Chloride Carbon Dioxide BUN Creatinine Glucose POC Glucose 142 H 111 H 169 H Lactic Acid Calcium Phosphorus Magnesium AST ALT Lactate Dehydrogenase Total Bilirubin Direct Bilirubin CK-MB (CK-2) C-Reactive Protein NT-Pro-B Natriuret Pep Total Protein Albumin Arterial Blood Glucose Urine WBC (Auto) Urine Creatinine 12/07/19 12/07/19 12/07/19 12:41 13:25 18:19 WBC 12.4 H RBC 3.53 L Hgb 10.2 L Hct 32.1 L MCHC RDW 15.3 H MCV MCH Lymph % (Auto) 10.6 L Carter % (Auto) 7.8 H Carter # 1.0 H Eos # Lymph # (Auto) Carter # (Auto) Eos # (Auto) Seg Neutrophils % 77.6 H Seg Neuts % (Manual) Baso # (Auto) Lymphocytes % (Manual) Monocytes % (Manual) Eosinophils % (Manual) Basophils % (Manual) Seg Neutrophils # 9.6 H Seg Neutrophils # Man Lymphocytes # (Manual) Monocytes # (Manual) Eosinophils # (Manual) Nucleated RBC % Basophils # (Manual) PT INR APTT Heparin Anti-Xa Level ABG pH POC ABG pO2 ABG pO2 ABG HCO3 ABG O2 Saturation ABG Base Excess POC ABG pCO2 ABG Hemoglobin ABG Oxyhemoglobin ABG Chloride ABG Glucose Oxyhemoglobin Sodium 149 H Potassium Chloride 108.4 H Carbon Dioxide BUN 26 H Creatinine 0.6 L Glucose 149 H POC Glucose 164 H Lactic Acid Calcium Phosphorus Magnesium 2.60 H AST 121 H ALT 145 H Lactate Dehydrogenase Total Bilirubin Direct Bilirubin CK-MB (CK-2) C-Reactive Protein NT-Pro-B Natriuret Pep Total Protein Albumin 2.6 L Arterial Blood Glucose Urine WBC (Auto) Urine Creatinine 12/07/19 12/08/19 12/08/19 22:25 00:02 03:55 WBC 13.3 H RBC 3.40 L Hgb 9.7 L Hct 30.8 L MCHC 31 L RDW 15.5 H MCV MCH Lymph % (Auto) Carter % (Auto) 8.1 H Carter # 1.1 H Eos # Lymph # (Auto) Carter # (Auto) Eos # (Auto) Seg Neutrophils % 73.0 H Seg Neuts % (Manual) Baso # (Auto) Lymphocytes % (Manual) Monocytes % (Manual) Eosinophils % (Manual) Basophils % (Manual) Seg Neutrophils # 9.7 H Seg Neutrophils # Man Lymphocytes # (Manual) Monocytes # (Manual) Eosinophils # (Manual) Nucleated RBC % Basophils # (Manual) PT INR APTT Heparin Anti-Xa Level 0.12 L ABG pH POC ABG pO2 ABG pO2 ABG HCO3 ABG O2 Saturation ABG Base Excess POC ABG pCO2 ABG Hemoglobin ABG Oxyhemoglobin ABG Chloride ABG Glucose Oxyhemoglobin Sodium Potassium Chloride Carbon Dioxide BUN Creatinine Glucose POC Glucose 151 H Lactic Acid Calcium Phosphorus Magnesium AST ALT Lactate Dehydrogenase Total Bilirubin Direct Bilirubin CK-MB (CK-2) C-Reactive Protein NT-Pro-B Natriuret Pep Total Protein Albumin Arterial Blood Glucose Urine WBC (Auto) Urine Creatinine 12/08/19 12/08/19 12/08/19 03:55 05:21 06:01 WBC RBC Hgb Hct MCHC RDW MCV MCH Lymph % (Auto) Carter % (Auto) Carter # Eos # Lymph # (Auto) Carter # (Auto) Eos # (Auto) Seg Neutrophils % Seg Neuts % (Manual) Baso # (Auto) Lymphocytes % (Manual) Monocytes % (Manual) Eosinophils % (Manual) Basophils % (Manual) Seg Neutrophils # Seg Neutrophils # Man Lymphocytes # (Manual) Monocytes # (Manual) Eosinophils # (Manual) Nucleated RBC % Basophils # (Manual) PT INR APTT Heparin Anti-Xa Level 0.20 L ABG pH POC ABG pO2 ABG pO2 ABG HCO3 ABG O2 Saturation ABG Base Excess POC ABG pCO2 ABG Hemoglobin ABG Oxyhemoglobin ABG Chloride ABG Glucose Oxyhemoglobin Sodium 149 H Potassium Chloride 108.0 H Carbon Dioxide BUN 28 H Creatinine 0.6 L Glucose 144 H POC Glucose 143 H Lactic Acid Calcium Phosphorus Magnesium AST 98 H ALT 145 H Lactate Dehydrogenase Total Bilirubin Direct Bilirubin CK-MB (CK-2) C-Reactive Protein NT-Pro-B Natriuret Pep Total Protein 6.0 L Albumin 2.4 L Arterial Blood Glucose Urine WBC (Auto) Urine Creatinine 12/08/19 12/08/19 12/08/19 12:08 18:11 23:53 WBC RBC Hgb Hct MCHC RDW MCV MCH Lymph % (Auto) Carter % (Auto) Carter # Eos # Lymph # (Auto) Carter # (Auto) Eos # (Auto) Seg Neutrophils % Seg Neuts % (Manual) Baso # (Auto) Lymphocytes % (Manual) Monocytes % (Manual) Eosinophils % (Manual) Basophils % (Manual) Seg Neutrophils # Seg Neutrophils # Man Lymphocytes # (Manual) Monocytes # (Manual) Eosinophils # (Manual) Nucleated RBC % Basophils # (Manual) PT INR APTT Heparin Anti-Xa Level ABG pH POC ABG pO2 ABG pO2 ABG HCO3 ABG O2 Saturation ABG Base Excess POC ABG pCO2 ABG Hemoglobin ABG Oxyhemoglobin ABG Chloride ABG Glucose Oxyhemoglobin Sodium Potassium Chloride Carbon Dioxide BUN Creatinine Glucose POC Glucose 172 H 122 H 162 H Lactic Acid Calcium Phosphorus Magnesium AST ALT Lactate Dehydrogenase Total Bilirubin Direct Bilirubin CK-MB (CK-2) C-Reactive Protein NT-Pro-B Natriuret Pep Total Protein Albumin Arterial Blood Glucose Urine WBC (Auto) Urine Creatinine 12/09/19 12/09/19 12/09/19 04:03 04:03 05:53 WBC RBC Hgb 9.1 L Hct 28.9 L MCHC RDW MCV MCH Lymph % (Auto) Carter % (Auto) Carter # Eos # Lymph # (Auto) Carter # (Auto) Eos # (Auto) Seg Neutrophils % Seg Neuts % (Manual) Baso # (Auto) Lymphocytes % (Manual) Monocytes % (Manual) Eosinophils % (Manual) Basophils % (Manual) Seg Neutrophils # Seg Neutrophils # Man Lymphocytes # (Manual) Monocytes # (Manual) Eosinophils # (Manual) Nucleated RBC % Basophils # (Manual) PT INR APTT Heparin Anti-Xa Level 0.15 L ABG pH POC ABG pO2 ABG pO2 ABG HCO3 ABG O2 Saturation ABG Base Excess POC ABG pCO2 ABG Hemoglobin ABG Oxyhemoglobin ABG Chloride ABG Glucose Oxyhemoglobin Sodium Potassium Chloride Carbon Dioxide BUN Creatinine Glucose POC Glucose 124 H Lactic Acid Calcium Phosphorus Magnesium AST ALT Lactate Dehydrogenase Total Bilirubin Direct Bilirubin CK-MB (CK-2) C-Reactive Protein NT-Pro-B Natriuret Pep Total Protein Albumin Arterial Blood Glucose Urine WBC (Auto) Urine Creatinine 12/09/19 12/09/19 12/10/19 09:43 12:41 00:13 WBC RBC Hgb Hct MCHC RDW MCV MCH Lymph % (Auto) Carter % (Auto) Carter # Eos # Lymph # (Auto) Carter # (Auto) Eos # (Auto) Seg Neutrophils % Seg Neuts % (Manual) Baso # (Auto) Lymphocytes % (Manual) Monocytes % (Manual) Eosinophils % (Manual) Basophils % (Manual) Seg Neutrophils # Seg Neutrophils # Man Lymphocytes # (Manual) Monocytes # (Manual) Eosinophils # (Manual) Nucleated RBC % Basophils # (Manual) PT INR APTT Heparin Anti-Xa Level ABG pH POC ABG pO2 ABG pO2 ABG HCO3 ABG O2 Saturation ABG Base Excess POC ABG pCO2 ABG Hemoglobin ABG Oxyhemoglobin ABG Chloride ABG Glucose Oxyhemoglobin Sodium Potassium Chloride Carbon Dioxide BUN 25 H Creatinine 0.6 L Glucose 131 H POC Glucose 109 H 120 H Lactic Acid Calcium Phosphorus Magnesium AST ALT Lactate Dehydrogenase Total Bilirubin Direct Bilirubin CK-MB (CK-2) C-Reactive Protein NT-Pro-B Natriuret Pep Total Protein Albumin Arterial Blood Glucose Urine WBC (Auto) Urine Creatinine 12/10/19 12/10/19 12/10/19 04:14 04:14 12:00 WBC 13.3 H RBC 3.34 L Hgb 9.6 L Hct 30.4 L MCHC RDW 15.4 H MCV MCH Lymph % (Auto) Carter % (Auto) Carter # Eos # Lymph # (Auto) Carter # (Auto) Eos # (Auto) Seg Neutrophils % Seg Neuts % (Manual) 75.0 H Baso # (Auto) Lymphocytes % (Manual) 13.0 L Monocytes % (Manual) 8.0 H Eosinophils % (Manual) Basophils % (Manual) 2.0 H Seg Neutrophils # Seg Neutrophils # Man 10.0 H Lymphocytes # (Manual) Monocytes # (Manual) 1.1 H Eosinophils # (Manual) Nucleated RBC % Basophils # (Manual) 0.3 H PT INR APTT Heparin Anti-Xa Level ABG pH POC ABG pO2 ABG pO2 ABG HCO3 ABG O2 Saturation ABG Base Excess POC ABG pCO2 ABG Hemoglobin ABG Oxyhemoglobin ABG Chloride ABG Glucose Oxyhemoglobin Sodium 147 H Potassium Chloride 108.3 H Carbon Dioxide BUN 21 H Creatinine 0.6 L Glucose 104 H POC Glucose 133 H Lactic Acid Calcium Phosphorus Magnesium AST ALT Lactate Dehydrogenase Total Bilirubin Direct Bilirubin CK-MB (CK-2) C-Reactive Protein NT-Pro-B Natriuret Pep Total Protein Albumin Arterial Blood Glucose Urine WBC (Auto) Urine Creatinine 12/10/19 12/10/19 12/11/19 18:44 21:20 00:08 WBC 14.9 H RBC 3.36 L Hgb 9.6 L Hct 30.5 L MCHC RDW 15.4 H MCV MCH Lymph % (Auto) Carter % (Auto) Carter # Eos # Lymph # (Auto) Carter # (Auto) Eos # (Auto) Seg Neutrophils % Seg Neuts % (Manual) Baso # (Auto) Lymphocytes % (Manual) Monocytes % (Manual) Eosinophils % (Manual) Basophils % (Manual) Seg Neutrophils # Seg Neutrophils # Man Lymphocytes # (Manual) Monocytes # (Manual) Eosinophils # (Manual) Nucleated RBC % Basophils # (Manual) PT INR APTT Heparin Anti-Xa Level ABG pH POC ABG pO2 ABG pO2 ABG HCO3 ABG O2 Saturation ABG Base Excess POC ABG pCO2 ABG Hemoglobin ABG Oxyhemoglobin ABG Chloride ABG Glucose Oxyhemoglobin Sodium Potassium Chloride Carbon Dioxide BUN Creatinine Glucose POC Glucose 119 H 134 H Lactic Acid Calcium Phosphorus Magnesium AST ALT Lactate Dehydrogenase Total Bilirubin Direct Bilirubin CK-MB (CK-2) C-Reactive Protein NT-Pro-B Natriuret Pep Total Protein Albumin Arterial Blood Glucose Urine WBC (Auto) Urine Creatinine 12/11/19 12/11/19 12/11/19 03:54 07:28 08:36 WBC 11.9 H RBC 3.25 L Hgb 9.6 L Hct 29.2 L MCHC RDW 15.7 H MCV MCH Lymph % (Auto) Carter % (Auto) Carter # Eos # Lymph # (Auto) Carter # (Auto) Eos # (Auto) Seg Neutrophils % Seg Neuts % (Manual) Baso # (Auto) Lymphocytes % (Manual) Monocytes % (Manual) Eosinophils % (Manual) Basophils % (Manual) Seg Neutrophils # Seg Neutrophils # Man Lymphocytes # (Manual) Monocytes # (Manual) Eosinophils # (Manual) Nucleated RBC % Basophils # (Manual) PT INR APTT Heparin Anti-Xa Level 0.10 L 0.16 L ABG pH POC ABG pO2 ABG pO2 ABG HCO3 ABG O2 Saturation ABG Base Excess POC ABG pCO2 ABG Hemoglobin ABG Oxyhemoglobin ABG Chloride ABG Glucose Oxyhemoglobin Sodium Potassium Chloride Carbon Dioxide BUN Creatinine Glucose POC Glucose Lactic Acid Calcium Phosphorus Magnesium AST ALT Lactate Dehydrogenase Total Bilirubin Direct Bilirubin CK-MB (CK-2) C-Reactive Protein NT-Pro-B Natriuret Pep Total Protein Albumin Arterial Blood Glucose Urine WBC (Auto) Urine Creatinine 12/11/19 12/11/19 12/11/19 08:36 11:45 17:15 WBC RBC Hgb Hct MCHC RDW MCV MCH Lymph % (Auto) Carter % (Auto) Carter # Eos # Lymph # (Auto) Carter # (Auto) Eos # (Auto) Seg Neutrophils % Seg Neuts % (Manual) Baso # (Auto) Lymphocytes % (Manual) Monocytes % (Manual) Eosinophils % (Manual) Basophils % (Manual) Seg Neutrophils # Seg Neutrophils # Man Lymphocytes # (Manual) Monocytes # (Manual) Eosinophils # (Manual) Nucleated RBC % Basophils # (Manual) PT INR APTT Heparin Anti-Xa Level ABG pH POC ABG pO2 ABG pO2 ABG HCO3 ABG O2 Saturation ABG Base Excess POC ABG pCO2 ABG Hemoglobin ABG Oxyhemoglobin ABG Chloride ABG Glucose Oxyhemoglobin Sodium Potassium Chloride Carbon Dioxide BUN Creatinine 0.5 L Glucose 128 H POC Glucose 136 H 109 H Lactic Acid Calcium Phosphorus Magnesium AST ALT Lactate Dehydrogenase Total Bilirubin Direct Bilirubin CK-MB (CK-2) C-Reactive Protein NT-Pro-B Natriuret Pep Total Protein Albumin Arterial Blood Glucose Urine WBC (Auto) Urine Creatinine 12/12/19 12/12/19 12/12/19 00:03 05:53 05:53 WBC RBC Hgb 8.8 L Hct 27.6 L MCHC RDW MCV MCH Lymph % (Auto) Carter % (Auto) Carter # Eos # Lymph # (Auto) Carter # (Auto) Eos # (Auto) Seg Neutrophils % Seg Neuts % (Manual) Baso # (Auto) Lymphocytes % (Manual) Monocytes % (Manual) Eosinophils % (Manual) Basophils % (Manual) Seg Neutrophils # Seg Neutrophils # Man Lymphocytes # (Manual) Monocytes # (Manual) Eosinophils # (Manual) Nucleated RBC % Basophils # (Manual) PT INR APTT Heparin Anti-Xa Level 0.22 L ABG pH POC ABG pO2 ABG pO2 ABG HCO3 ABG O2 Saturation ABG Base Excess POC ABG pCO2 ABG Hemoglobin ABG Oxyhemoglobin ABG Chloride ABG Glucose Oxyhemoglobin Sodium Potassium Chloride Carbon Dioxide BUN Creatinine Glucose POC Glucose 116 H Lactic Acid Calcium Phosphorus Magnesium AST ALT Lactate Dehydrogenase Total Bilirubin Direct Bilirubin CK-MB (CK-2) C-Reactive Protein NT-Pro-B Natriuret Pep Total Protein Albumin Arterial Blood Glucose Urine WBC (Auto) Urine Creatinine 12/12/19 12/12/19 12/12/19 09:38 12:18 17:44 WBC RBC Hgb Hct MCHC RDW MCV MCH Lymph % (Auto) Carter % (Auto) Carter # Eos # Lymph # (Auto) Carter # (Auto) Eos # (Auto) Seg Neutrophils % Seg Neuts % (Manual) Baso # (Auto) Lymphocytes % (Manual) Monocytes % (Manual) Eosinophils % (Manual) Basophils % (Manual) Seg Neutrophils # Seg Neutrophils # Man Lymphocytes # (Manual) Monocytes # (Manual) Eosinophils # (Manual) Nucleated RBC % Basophils # (Manual) PT INR APTT Heparin Anti-Xa Level ABG pH POC ABG pO2 ABG pO2 ABG HCO3 ABG O2 Saturation ABG Base Excess POC ABG pCO2 ABG Hemoglobin ABG Oxyhemoglobin ABG Chloride ABG Glucose Oxyhemoglobin Sodium Potassium Chloride Carbon Dioxide BUN Creatinine Glucose POC Glucose 115 H 146 H 146 H Lactic Acid Calcium Phosphorus Magnesium AST ALT Lactate Dehydrogenase Total Bilirubin Direct Bilirubin CK-MB (CK-2) C-Reactive Protein NT-Pro-B Natriuret Pep Total Protein Albumin Arterial Blood Glucose Urine WBC (Auto) Urine Creatinine 12/12/19 12/13/19 12/13/19 23:33 05:32 05:32 WBC 13.1 H RBC 3.27 L Hgb 9.5 L Hct 29.3 L MCHC RDW 15.6 H MCV MCH Lymph % (Auto) Carter % (Auto) Carter # Eos # Lymph # (Auto) Carter # (Auto) Eos # (Auto) Seg Neutrophils % Seg Neuts % (Manual) 74.0 H Baso # (Auto) Lymphocytes % (Manual) 8.0 L Monocytes % (Manual) 9.0 H Eosinophils % (Manual) 5.0 H Basophils % (Manual) Seg Neutrophils # Seg Neutrophils # Man 9.7 H Lymphocytes # (Manual) 1.0 L Monocytes # (Manual) 1.2 H Eosinophils # (Manual) 0.7 H Nucleated RBC % Basophils # (Manual) PT INR APTT Heparin Anti-Xa Level 0.20 L ABG pH POC ABG pO2 ABG pO2 ABG HCO3 ABG O2 Saturation ABG Base Excess POC ABG pCO2 ABG Hemoglobin ABG Oxyhemoglobin ABG Chloride ABG Glucose Oxyhemoglobin Sodium Potassium Chloride Carbon Dioxide BUN Creatinine Glucose POC Glucose 126 H Lactic Acid Calcium Phosphorus Magnesium AST ALT Lactate Dehydrogenase Total Bilirubin Direct Bilirubin CK-MB (CK-2) C-Reactive Protein NT-Pro-B Natriuret Pep Total Protein Albumin Arterial Blood Glucose Urine WBC (Auto) Urine Creatinine 12/13/19 12/13/19 12/13/19 05:32 05:46 11:57 WBC RBC Hgb Hct MCHC RDW MCV MCH Lymph % (Auto) Carter % (Auto) Carter # Eos # Lymph # (Auto) Carter # (Auto) Eos # (Auto) Seg Neutrophils % Seg Neuts % (Manual) Baso # (Auto) Lymphocytes % (Manual) Monocytes % (Manual) Eosinophils % (Manual) Basophils % (Manual) Seg Neutrophils # Seg Neutrophils # Man Lymphocytes # (Manual) Monocytes # (Manual) Eosinophils # (Manual) Nucleated RBC % Basophils # (Manual) PT INR APTT Heparin Anti-Xa Level ABG pH POC ABG pO2 ABG pO2 ABG HCO3 ABG O2 Saturation ABG Base Excess POC ABG pCO2 ABG Hemoglobin ABG Oxyhemoglobin ABG Chloride ABG Glucose Oxyhemoglobin Sodium Potassium Chloride Carbon Dioxide 31 H BUN Creatinine 0.6 L Glucose 114 H POC Glucose 118 H 133 H Lactic Acid Calcium Phosphorus Magnesium AST ALT Lactate Dehydrogenase Total Bilirubin Direct Bilirubin CK-MB (CK-2) C-Reactive Protein NT-Pro-B Natriuret Pep Total Protein Albumin Arterial Blood Glucose Urine WBC (Auto) Urine Creatinine 12/13/19 12/13/19 12/14/19 17:44 23:46 05:32 WBC RBC Hgb Hct MCHC RDW MCV MCH Lymph % (Auto) Carter % (Auto) Carter # Eos # Lymph # (Auto) Carter # (Auto) Eos # (Auto) Seg Neutrophils % Seg Neuts % (Manual) Baso # (Auto) Lymphocytes % (Manual) Monocytes % (Manual) Eosinophils % (Manual) Basophils % (Manual) Seg Neutrophils # Seg Neutrophils # Man Lymphocytes # (Manual) Monocytes # (Manual) Eosinophils # (Manual) Nucleated RBC % Basophils # (Manual) PT INR APTT Heparin Anti-Xa Level ABG pH POC ABG pO2 ABG pO2 ABG HCO3 ABG O2 Saturation ABG Base Excess POC ABG pCO2 ABG Hemoglobin ABG Oxyhemoglobin ABG Chloride ABG Glucose Oxyhemoglobin Sodium Potassium Chloride Carbon Dioxide BUN Creatinine Glucose POC Glucose 161 H 126 H 139 H Lactic Acid Calcium Phosphorus Magnesium AST ALT Lactate Dehydrogenase Total Bilirubin Direct Bilirubin CK-MB (CK-2) C-Reactive Protein NT-Pro-B Natriuret Pep Total Protein Albumin Arterial Blood Glucose Urine WBC (Auto) Urine Creatinine 12/14/19 12/14/19 12/14/19 06:03 06:03 09:37 WBC RBC Hgb 9.6 L Hct 30.4 L MCHC RDW MCV MCH Lymph % (Auto) Carter % (Auto) Carter # Eos # Lymph # (Auto) Carter # (Auto) Eos # (Auto) Seg Neutrophils % Seg Neuts % (Manual) Baso # (Auto) Lymphocytes % (Manual) Monocytes % (Manual) Eosinophils % (Manual) Basophils % (Manual) Seg Neutrophils # Seg Neutrophils # Man Lymphocytes # (Manual) Monocytes # (Manual) Eosinophils # (Manual) Nucleated RBC % Basophils # (Manual) PT INR APTT Heparin Anti-Xa Level 0.24 L ABG pH POC ABG pO2 ABG pO2 ABG HCO3 ABG O2 Saturation ABG Base Excess POC ABG pCO2 ABG Hemoglobin ABG Oxyhemoglobin ABG Chloride ABG Glucose Oxyhemoglobin Sodium Potassium Chloride Carbon Dioxide BUN Creatinine 0.6 L Glucose 162 H POC Glucose Lactic Acid Calcium Phosphorus Magnesium AST 71 H ALT 118 H Lactate Dehydrogenase Total Bilirubin Direct Bilirubin CK-MB (CK-2) C-Reactive Protein NT-Pro-B Natriuret Pep Total Protein 6.2 L Albumin 2.3 L Arterial Blood Glucose Urine WBC (Auto) Urine Creatinine 12/14/19 12/14/19 12/15/19 12:06 18:18 00:19 WBC RBC Hgb Hct MCHC RDW MCV MCH Lymph % (Auto) Carter % (Auto) Carter # Eos # Lymph # (Auto) Carter # (Auto) Eos # (Auto) Seg Neutrophils % Seg Neuts % (Manual) Baso # (Auto) Lymphocytes % (Manual) Monocytes % (Manual) Eosinophils % (Manual) Basophils % (Manual) Seg Neutrophils # Seg Neutrophils # Man Lymphocytes # (Manual) Monocytes # (Manual) Eosinophils # (Manual) Nucleated RBC % Basophils # (Manual) PT INR APTT Heparin Anti-Xa Level ABG pH POC ABG pO2 ABG pO2 ABG HCO3 ABG O2 Saturation ABG Base Excess POC ABG pCO2 ABG Hemoglobin ABG Oxyhemoglobin ABG Chloride ABG Glucose Oxyhemoglobin Sodium Potassium Chloride Carbon Dioxide BUN Creatinine Glucose POC Glucose 147 H 166 H 123 H Lactic Acid Calcium Phosphorus Magnesium AST ALT Lactate Dehydrogenase Total Bilirubin Direct Bilirubin CK-MB (CK-2) C-Reactive Protein NT-Pro-B Natriuret Pep Total Protein Albumin Arterial Blood Glucose Urine WBC (Auto) Urine Creatinine 12/15/19 12/15/19 12/15/19 05:28 05:29 05:29 WBC 14.9 H RBC 3.19 L Hgb 9.1 L Hct 28.7 L MCHC RDW 16.0 H MCV MCH Lymph % (Auto) Carter % (Auto) Carter # Eos # Lymph # (Auto) Carter # (Auto) Eos # (Auto) Seg Neutrophils % Seg Neuts % (Manual) Baso # (Auto) Lymphocytes % (Manual) Monocytes % (Manual) Eosinophils % (Manual) Basophils % (Manual) Seg Neutrophils # Seg Neutrophils # Man Lymphocytes # (Manual) Monocytes # (Manual) Eosinophils # (Manual) Nucleated RBC % Basophils # (Manual) PT INR APTT Heparin Anti-Xa Level 0.19 L ABG pH POC ABG pO2 ABG pO2 ABG HCO3 ABG O2 Saturation ABG Base Excess POC ABG pCO2 ABG Hemoglobin ABG Oxyhemoglobin ABG Chloride ABG Glucose Oxyhemoglobin Sodium Potassium Chloride Carbon Dioxide BUN Creatinine 0.6 L Glucose 110 H POC Glucose Lactic Acid Calcium Phosphorus Magnesium AST ALT Lactate Dehydrogenase Total Bilirubin Direct Bilirubin CK-MB (CK-2) C-Reactive Protein NT-Pro-B Natriuret Pep Total Protein Albumin Arterial Blood Glucose Urine WBC (Auto) Urine Creatinine 12/15/19 12/15/19 12/15/19 05:53 11:50 17:26 WBC RBC Hgb Hct MCHC RDW MCV MCH Lymph % (Auto) Carter % (Auto) Carter # Eos # Lymph # (Auto) Carter # (Auto) Eos # (Auto) Seg Neutrophils % Seg Neuts % (Manual) Baso # (Auto) Lymphocytes % (Manual) Monocytes % (Manual) Eosinophils % (Manual) Basophils % (Manual) Seg Neutrophils # Seg Neutrophils # Man Lymphocytes # (Manual) Monocytes # (Manual) Eosinophils # (Manual) Nucleated RBC % Basophils # (Manual) PT INR APTT Heparin Anti-Xa Level ABG pH POC ABG pO2 ABG pO2 ABG HCO3 ABG O2 Saturation ABG Base Excess POC ABG pCO2 ABG Hemoglobin ABG Oxyhemoglobin ABG Chloride ABG Glucose Oxyhemoglobin Sodium Potassium Chloride Carbon Dioxide BUN Creatinine Glucose POC Glucose 119 H 132 H 128 H Lactic Acid Calcium Phosphorus Magnesium AST ALT Lactate Dehydrogenase Total Bilirubin Direct Bilirubin CK-MB (CK-2) C-Reactive Protein NT-Pro-B Natriuret Pep Total Protein Albumin Arterial Blood Glucose Urine WBC (Auto) Urine Creatinine 12/15/19 12/16/19 12/16/19 23:11 05:30 05:46 WBC RBC Hgb 8.8 L Hct 27.9 L MCHC RDW MCV MCH Lymph % (Auto) Carter % (Auto) Carter # Eos # Lymph # (Auto) Carter # (Auto) Eos # (Auto) Seg Neutrophils % Seg Neuts % (Manual) Baso # (Auto) Lymphocytes % (Manual) Monocytes % (Manual) Eosinophils % (Manual) Basophils % (Manual) Seg Neutrophils # Seg Neutrophils # Man Lymphocytes # (Manual) Monocytes # (Manual) Eosinophils # (Manual) Nucleated RBC % Basophils # (Manual) PT INR APTT Heparin Anti-Xa Level ABG pH POC ABG pO2 ABG pO2 ABG HCO3 ABG O2 Saturation ABG Base Excess POC ABG pCO2 ABG Hemoglobin ABG Oxyhemoglobin ABG Chloride ABG Glucose Oxyhemoglobin Sodium Potassium Chloride Carbon Dioxide BUN Creatinine Glucose POC Glucose 150 H 134 H Lactic Acid Calcium Phosphorus Magnesium AST ALT Lactate Dehydrogenase Total Bilirubin Direct Bilirubin CK-MB (CK-2) C-Reactive Protein NT-Pro-B Natriuret Pep Total Protein Albumin Arterial Blood Glucose Urine WBC (Auto) Urine Creatinine 12/16/19 12/16/19 12/16/19 05:46 05:46 11:44 WBC RBC Hgb Hct MCHC RDW MCV MCH Lymph % (Auto) Carter % (Auto) Carter # Eos # Lymph # (Auto) Carter # (Auto) Eos # (Auto) Seg Neutrophils % Seg Neuts % (Manual) Baso # (Auto) Lymphocytes % (Manual) Monocytes % (Manual) Eosinophils % (Manual) Basophils % (Manual) Seg Neutrophils # Seg Neutrophils # Man Lymphocytes # (Manual) Monocytes # (Manual) Eosinophils # (Manual) Nucleated RBC % Basophils # (Manual) PT INR APTT Heparin Anti-Xa Level 0.20 L ABG pH POC ABG pO2 ABG pO2 ABG HCO3 ABG O2 Saturation ABG Base Excess POC ABG pCO2 ABG Hemoglobin ABG Oxyhemoglobin ABG Chloride ABG Glucose Oxyhemoglobin Sodium Potassium Chloride Carbon Dioxide 31 H BUN Creatinine 0.5 L Glucose 147 H POC Glucose 164 H Lactic Acid Calcium Phosphorus Magnesium AST ALT Lactate Dehydrogenase Total Bilirubin Direct Bilirubin CK-MB (CK-2) C-Reactive Protein NT-Pro-B Natriuret Pep Total Protein Albumin Arterial Blood Glucose Urine WBC (Auto) Urine Creatinine 12/16/19 12/16/19 12/17/19 17:17 23:49 05:30 WBC 13.9 H RBC 3.27 L Hgb 9.4 L Hct 29.2 L MCHC RDW 16.0 H MCV MCH Lymph % (Auto) Carter % (Auto) 8.8 H Carter # Eos # Lymph # (Auto) Carter # (Auto) 1.2 H Eos # (Auto) 0.5 H Seg Neutrophils % 70.5 H Seg Neuts % (Manual) Baso # (Auto) 0.2 H Lymphocytes % (Manual) Monocytes % (Manual) Eosinophils % (Manual) Basophils % (Manual) Seg Neutrophils # 9.8 H Seg Neutrophils # Man Lymphocytes # (Manual) Monocytes # (Manual) Eosinophils # (Manual) Nucleated RBC % Basophils # (Manual) PT INR APTT Heparin Anti-Xa Level ABG pH POC ABG pO2 ABG pO2 ABG HCO3 ABG O2 Saturation ABG Base Excess POC ABG pCO2 ABG Hemoglobin ABG Oxyhemoglobin ABG Chloride ABG Glucose Oxyhemoglobin Sodium Potassium Chloride Carbon Dioxide BUN Creatinine Glucose POC Glucose 162 H 144 H Lactic Acid Calcium Phosphorus Magnesium AST ALT Lactate Dehydrogenase Total Bilirubin Direct Bilirubin CK-MB (CK-2) C-Reactive Protein NT-Pro-B Natriuret Pep Total Protein Albumin Arterial Blood Glucose Urine WBC (Auto) Urine Creatinine 12/17/19 12/17/19 12/17/19 05:30 06:06 11:50 WBC RBC Hgb Hct MCHC RDW MCV MCH Lymph % (Auto) Carter % (Auto) Carter # Eos # Lymph # (Auto) Carter # (Auto) Eos # (Auto) Seg Neutrophils % Seg Neuts % (Manual) Baso # (Auto) Lymphocytes % (Manual) Monocytes % (Manual) Eosinophils % (Manual) Basophils % (Manual) Seg Neutrophils # Seg Neutrophils # Man Lymphocytes # (Manual) Monocytes # (Manual) Eosinophils # (Manual) Nucleated RBC % Basophils # (Manual) PT INR APTT Heparin Anti-Xa Level ABG pH POC ABG pO2 ABG pO2 ABG HCO3 ABG O2 Saturation ABG Base Excess POC ABG pCO2 ABG Hemoglobin ABG Oxyhemoglobin ABG Chloride ABG Glucose Oxyhemoglobin Sodium Potassium Chloride 97.4 L Carbon Dioxide 32 H BUN Creatinine 0.5 L Glucose 135 H POC Glucose 151 H 140 H Lactic Acid Calcium Phosphorus Magnesium AST ALT Lactate Dehydrogenase Total Bilirubin Direct Bilirubin CK-MB (CK-2) C-Reactive Protein NT-Pro-B Natriuret Pep Total Protein Albumin Arterial Blood Glucose Urine WBC (Auto) Urine Creatinine 12/17/19 12/17/19 12/18/19 17:50 23:46 05:17 WBC RBC Hgb 8.8 L Hct 28.0 L MCHC RDW MCV MCH Lymph % (Auto) Carter % (Auto) Carter # Eos # Lymph # (Auto) Carter # (Auto) Eos # (Auto) Seg Neutrophils % Seg Neuts % (Manual) Baso # (Auto) Lymphocytes % (Manual) Monocytes % (Manual) Eosinophils % (Manual) Basophils % (Manual) Seg Neutrophils # Seg Neutrophils # Man Lymphocytes # (Manual) Monocytes # (Manual) Eosinophils # (Manual) Nucleated RBC % Basophils # (Manual) PT INR APTT Heparin Anti-Xa Level ABG pH POC ABG pO2 ABG pO2 ABG HCO3 ABG O2 Saturation ABG Base Excess POC ABG pCO2 ABG Hemoglobin ABG Oxyhemoglobin ABG Chloride ABG Glucose Oxyhemoglobin Sodium Potassium Chloride Carbon Dioxide BUN Creatinine Glucose POC Glucose 158 H 150 H Lactic Acid Calcium Phosphorus Magnesium AST ALT Lactate Dehydrogenase Total Bilirubin Direct Bilirubin CK-MB (CK-2) C-Reactive Protein NT-Pro-B Natriuret Pep Total Protein Albumin Arterial Blood Glucose Urine WBC (Auto) Urine Creatinine 12/18/19 12/18/19 12/18/19 05:17 05:49 11:12 WBC RBC Hgb Hct MCHC RDW MCV MCH Lymph % (Auto) Carter % (Auto) Carter # Eos # Lymph # (Auto) Carter # (Auto) Eos # (Auto) Seg Neutrophils % Seg Neuts % (Manual) Baso # (Auto) Lymphocytes % (Manual) Monocytes % (Manual) Eosinophils % (Manual) Basophils % (Manual) Seg Neutrophils # Seg Neutrophils # Man Lymphocytes # (Manual) Monocytes # (Manual) Eosinophils # (Manual) Nucleated RBC % Basophils # (Manual) PT INR APTT Heparin Anti-Xa Level 0.16 L ABG pH POC ABG pO2 ABG pO2 ABG HCO3 ABG O2 Saturation ABG Base Excess POC ABG pCO2 ABG Hemoglobin ABG Oxyhemoglobin ABG Chloride ABG Glucose Oxyhemoglobin Sodium Potassium Chloride Carbon Dioxide BUN Creatinine Glucose POC Glucose 127 H 191 H Lactic Acid Calcium Phosphorus Magnesium AST ALT Lactate Dehydrogenase Total Bilirubin Direct Bilirubin CK-MB (CK-2) C-Reactive Protein NT-Pro-B Natriuret Pep Total Protein Albumin Arterial Blood Glucose Urine WBC (Auto) Urine Creatinine 12/18/19 12/18/19 12/19/19 17:03 20:16 00:08 WBC RBC Hgb Hct MCHC RDW MCV MCH Lymph % (Auto) Carter % (Auto) Carter # Eos # Lymph # (Auto) Carter # (Auto) Eos # (Auto) Seg Neutrophils % Seg Neuts % (Manual) Baso # (Auto) Lymphocytes % (Manual) Monocytes % (Manual) Eosinophils % (Manual) Basophils % (Manual) Seg Neutrophils # Seg Neutrophils # Man Lymphocytes # (Manual) Monocytes # (Manual) Eosinophils # (Manual) Nucleated RBC % Basophils # (Manual) PT INR APTT Heparin Anti-Xa Level ABG pH POC ABG pO2 ABG pO2 ABG HCO3 ABG O2 Saturation ABG Base Excess POC ABG pCO2 ABG Hemoglobin ABG Oxyhemoglobin ABG Chloride ABG Glucose Oxyhemoglobin Sodium Potassium Chloride Carbon Dioxide BUN Creatinine Glucose POC Glucose 133 H 128 H 129 H Lactic Acid Calcium Phosphorus Magnesium AST ALT Lactate Dehydrogenase Total Bilirubin Direct Bilirubin CK-MB (CK-2) C-Reactive Protein NT-Pro-B Natriuret Pep Total Protein Albumin Arterial Blood Glucose Urine WBC (Auto) Urine Creatinine 12/19/19 12/19/19 12/19/19 04:45 04:45 05:35 WBC RBC Hgb Hct MCHC RDW MCV MCH Lymph % (Auto) Carter % (Auto) Carter # Eos # Lymph # (Auto) Carter # (Auto) Eos # (Auto) Seg Neutrophils % Seg Neuts % (Manual) Baso # (Auto) Lymphocytes % (Manual) Monocytes % (Manual) Eosinophils % (Manual) Basophils % (Manual) Seg Neutrophils # Seg Neutrophils # Man Lymphocytes # (Manual) Monocytes # (Manual) Eosinophils # (Manual) Nucleated RBC % Basophils # (Manual) PT INR APTT Heparin Anti-Xa Level 0.17 L ABG pH POC ABG pO2 ABG pO2 ABG HCO3 ABG O2 Saturation ABG Base Excess POC ABG pCO2 ABG Hemoglobin ABG Oxyhemoglobin ABG Chloride ABG Glucose Oxyhemoglobin Sodium Potassium Chloride Carbon Dioxide BUN Creatinine Glucose POC Glucose 120 H Lactic Acid Calcium Phosphorus Magnesium AST ALT Lactate Dehydrogenase 228 H Total Bilirubin Direct Bilirubin CK-MB (CK-2) C-Reactive Protein NT-Pro-B Natriuret Pep Total Protein Albumin Arterial Blood Glucose Urine WBC (Auto) Urine Creatinine 12/19/19 12/19/19 12/19/19 09:20 11:32 11:32 WBC 14.6 H RBC 3.08 L Hgb 9.0 L Hct 26.8 L MCHC RDW 15.9 H MCV MCH Lymph % (Auto) Carter % (Auto) Carter # Eos # Lymph # (Auto) Carter # (Auto) Eos # (Auto) Seg Neutrophils % Seg Neuts % (Manual) 82.0 H Baso # (Auto) Lymphocytes % (Manual) 10.0 L Monocytes % (Manual) Eosinophils % (Manual) Basophils % (Manual) Seg Neutrophils # Seg Neutrophils # Man 12.0 H Lymphocytes # (Manual) Monocytes # (Manual) 0.9 H Eosinophils # (Manual) Nucleated RBC % 1.0 H Basophils # (Manual) PT INR APTT Heparin Anti-Xa Level ABG pH 7.451 H POC ABG pO2 ABG pO2 62.6 L ABG HCO3 33.2 H ABG O2 Saturation 93.8 L ABG Base Excess 8.3 H POC ABG pCO2 ABG Hemoglobin 8.3 L ABG Oxyhemoglobin ABG Chloride ABG Glucose Oxyhemoglobin 91.9 L Sodium Potassium Chloride 95.0 L Carbon Dioxide 33 H BUN 22 H Creatinine 0.6 L Glucose 150 H POC Glucose Lactic Acid Calcium Phosphorus Magnesium AST ALT Lactate Dehydrogenase Total Bilirubin Direct Bilirubin CK-MB (CK-2) C-Reactive Protein NT-Pro-B Natriuret Pep Total Protein 6.2 L Albumin 2.4 L Arterial Blood Glucose Urine WBC (Auto) Urine Creatinine 12/19/19 12/19/19 12/20/19 11:56 18:17 00:09 WBC RBC Hgb Hct MCHC RDW MCV MCH Lymph % (Auto) Carter % (Auto) Carter # Eos # Lymph # (Auto) Carter # (Auto) Eos # (Auto) Seg Neutrophils % Seg Neuts % (Manual) Baso # (Auto) Lymphocytes % (Manual) Monocytes % (Manual) Eosinophils % (Manual) Basophils % (Manual) Seg Neutrophils # Seg Neutrophils # Man Lymphocytes # (Manual) Monocytes # (Manual) Eosinophils # (Manual) Nucleated RBC % Basophils # (Manual) PT INR APTT Heparin Anti-Xa Level ABG pH POC ABG pO2 ABG pO2 ABG HCO3 ABG O2 Saturation ABG Base Excess POC ABG pCO2 ABG Hemoglobin ABG Oxyhemoglobin ABG Chloride ABG Glucose Oxyhemoglobin Sodium Potassium Chloride Carbon Dioxide BUN Creatinine Glucose POC Glucose 156 H 156 H 155 H Lactic Acid Calcium Phosphorus Magnesium AST ALT Lactate Dehydrogenase Total Bilirubin Direct Bilirubin CK-MB (CK-2) C-Reactive Protein NT-Pro-B Natriuret Pep Total Protein Albumin Arterial Blood Glucose Urine WBC (Auto) Urine Creatinine 12/20/19 12/20/19 12/20/19 05:26 06:02 18:17 WBC RBC Hgb Hct MCHC RDW MCV MCH Lymph % (Auto) Carter % (Auto) Carter # Eos # Lymph # (Auto) Carter # (Auto) Eos # (Auto) Seg Neutrophils % Seg Neuts % (Manual) Baso # (Auto) Lymphocytes % (Manual) Monocytes % (Manual) Eosinophils % (Manual) Basophils % (Manual) Seg Neutrophils # Seg Neutrophils # Man Lymphocytes # (Manual) Monocytes # (Manual) Eosinophils # (Manual) Nucleated RBC % Basophils # (Manual) PT INR APTT Heparin Anti-Xa Level 0.19 L ABG pH POC ABG pO2 ABG pO2 ABG HCO3 ABG O2 Saturation ABG Base Excess POC ABG pCO2 ABG Hemoglobin ABG Oxyhemoglobin ABG Chloride ABG Glucose Oxyhemoglobin Sodium Potassium Chloride Carbon Dioxide BUN Creatinine Glucose POC Glucose 137 H 128 H Lactic Acid Calcium Phosphorus Magnesium AST ALT Lactate Dehydrogenase Total Bilirubin Direct Bilirubin CK-MB (CK-2) C-Reactive Protein NT-Pro-B Natriuret Pep Total Protein Albumin Arterial Blood Glucose Urine WBC (Auto) Urine Creatinine 12/20/19 12/21/19 12/21/19 23:34 05:31 05:31 WBC 12.7 H RBC 3.09 L Hgb 8.9 L Hct 27.4 L MCHC RDW 15.8 H MCV MCH Lymph % (Auto) 12.1 L Carter % (Auto) 7.8 H Carter # Eos # Lymph # (Auto) Carter # (Auto) 1.0 H Eos # (Auto) Seg Neutrophils % 77.1 H Seg Neuts % (Manual) Baso # (Auto) Lymphocytes % (Manual) Monocytes % (Manual) Eosinophils % (Manual) Basophils % (Manual) Seg Neutrophils # 9.8 H Seg Neutrophils # Man Lymphocytes # (Manual) Monocytes # (Manual) Eosinophils # (Manual) Nucleated RBC % Basophils # (Manual) PT INR APTT Heparin Anti-Xa Level ABG pH POC ABG pO2 ABG pO2 ABG HCO3 ABG O2 Saturation ABG Base Excess POC ABG pCO2 ABG Hemoglobin ABG Oxyhemoglobin ABG Chloride ABG Glucose Oxyhemoglobin Sodium Potassium Chloride 96.9 L Carbon Dioxide 37 H BUN 27 H Creatinine 0.7 L Glucose 140 H POC Glucose 145 H Lactic Acid Calcium Phosphorus Magnesium AST ALT Lactate Dehydrogenase Total Bilirubin Direct Bilirubin CK-MB (CK-2) C-Reactive Protein NT-Pro-B Natriuret Pep Total Protein Albumin Arterial Blood Glucose Urine WBC (Auto) Urine Creatinine 12/21/19 12/21/19 12/21/19 05:38 10:13 11:51 WBC RBC Hgb Hct MCHC RDW MCV MCH Lymph % (Auto) Carter % (Auto) Carter # Eos # Lymph # (Auto) Carter # (Auto) Eos # (Auto) Seg Neutrophils % Seg Neuts % (Manual) Baso # (Auto) Lymphocytes % (Manual) Monocytes % (Manual) Eosinophils % (Manual) Basophils % (Manual) Seg Neutrophils # Seg Neutrophils # Man Lymphocytes # (Manual) Monocytes # (Manual) Eosinophils # (Manual) Nucleated RBC % Basophils # (Manual) PT INR APTT 23.9 L Heparin Anti-Xa Level < 0.10 L ABG pH POC ABG pO2 ABG pO2 ABG HCO3 ABG O2 Saturation ABG Base Excess POC ABG pCO2 ABG Hemoglobin ABG Oxyhemoglobin ABG Chloride ABG Glucose Oxyhemoglobin Sodium Potassium Chloride Carbon Dioxide BUN Creatinine Glucose POC Glucose 151 H 145 H Lactic Acid Calcium Phosphorus Magnesium AST ALT Lactate Dehydrogenase Total Bilirubin Direct Bilirubin CK-MB (CK-2) C-Reactive Protein NT-Pro-B Natriuret Pep Total Protein Albumin Arterial Blood Glucose Urine WBC (Auto) Urine Creatinine 12/21/19 12/22/19 12/22/19 17:16 00:01 01:33 WBC RBC Hgb Hct MCHC RDW MCV MCH Lymph % (Auto) Carter % (Auto) Carter # Eos # Lymph # (Auto) Carter # (Auto) Eos # (Auto) Seg Neutrophils % Seg Neuts % (Manual) Baso # (Auto) Lymphocytes % (Manual) Monocytes % (Manual) Eosinophils % (Manual) Basophils % (Manual) Seg Neutrophils # Seg Neutrophils # Man Lymphocytes # (Manual) Monocytes # (Manual) Eosinophils # (Manual) Nucleated RBC % Basophils # (Manual) PT INR APTT Heparin Anti-Xa Level 0.10 L ABG pH POC ABG pO2 ABG pO2 ABG HCO3 ABG O2 Saturation ABG Base Excess POC ABG pCO2 ABG Hemoglobin ABG Oxyhemoglobin ABG Chloride ABG Glucose Oxyhemoglobin Sodium Potassium Chloride Carbon Dioxide BUN Creatinine Glucose POC Glucose 167 H 179 H Lactic Acid Calcium Phosphorus Magnesium AST ALT Lactate Dehydrogenase Total Bilirubin Direct Bilirubin CK-MB (CK-2) C-Reactive Protein NT-Pro-B Natriuret Pep Total Protein Albumin Arterial Blood Glucose Urine WBC (Auto) Urine Creatinine 12/22/19 12/22/19 12/22/19 03:22 05:10 05:10 WBC 13.8 H RBC 3.20 L Hgb 8.9 L Hct 28.1 L MCHC RDW 15.9 H MCV MCH Lymph % (Auto) Carter % (Auto) Carter # Eos # Lymph # (Auto) Carter # (Auto) Eos # (Auto) Seg Neutrophils % Seg Neuts % (Manual) Baso # (Auto) Lymphocytes % (Manual) Monocytes % (Manual) Eosinophils % (Manual) Basophils % (Manual) Seg Neutrophils # Seg Neutrophils # Man Lymphocytes # (Manual) Monocytes # (Manual) Eosinophils # (Manual) Nucleated RBC % Basophils # (Manual) PT INR APTT Heparin Anti-Xa Level ABG pH POC ABG pO2 52.3 L ABG pO2 ABG HCO3 ABG O2 Saturation ABG Base Excess POC ABG pCO2 52.9 H ABG Hemoglobin 10.7 L ABG Oxyhemoglobin 84 L ABG Chloride ABG Glucose Oxyhemoglobin Sodium Potassium Chloride 96.6 L Carbon Dioxide BUN 25 H Creatinine 0.7 L Glucose 129 H POC Glucose Lactic Acid Calcium Phosphorus Magnesium AST ALT Lactate Dehydrogenase Total Bilirubin Direct Bilirubin CK-MB (CK-2) C-Reactive Protein NT-Pro-B Natriuret Pep Total Protein Albumin Arterial Blood Glucose Urine WBC (Auto) Urine Creatinine 12/22/19 12/22/19 12/22/19 05:18 12:32 12:43 WBC RBC Hgb Hct MCHC RDW MCV MCH Lymph % (Auto) Carter % (Auto) Carter # Eos # Lymph # (Auto) Carter # (Auto) Eos # (Auto) Seg Neutrophils % Seg Neuts % (Manual) Baso # (Auto) Lymphocytes % (Manual) Monocytes % (Manual) Eosinophils % (Manual) Basophils % (Manual) Seg Neutrophils # Seg Neutrophils # Man Lymphocytes # (Manual) Monocytes # (Manual) Eosinophils # (Manual) Nucleated RBC % Basophils # (Manual) PT INR APTT Heparin Anti-Xa Level 0.18 L ABG pH POC ABG pO2 ABG pO2 ABG HCO3 ABG O2 Saturation ABG Base Excess POC ABG pCO2 ABG Hemoglobin ABG Oxyhemoglobin ABG Chloride ABG Glucose Oxyhemoglobin Sodium Potassium Chloride Carbon Dioxide BUN Creatinine Glucose POC Glucose 131 H 208 H Lactic Acid Calcium Phosphorus Magnesium AST ALT Lactate Dehydrogenase Total Bilirubin Direct Bilirubin CK-MB (CK-2) C-Reactive Protein NT-Pro-B Natriuret Pep Total Protein Albumin Arterial Blood Glucose Urine WBC (Auto) Urine Creatinine 12/22/19 12/22/19 12/23/19 17:44 23:20 03:51 WBC 15.2 H RBC 3.43 L Hgb 9.6 L Hct 30.3 L MCHC RDW 15.9 H MCV MCH Lymph % (Auto) Carter % (Auto) Carter # Eos # Lymph # (Auto) Carter # (Auto) Eos # (Auto) Seg Neutrophils % Seg Neuts % (Manual) Baso # (Auto) Lymphocytes % (Manual) Monocytes % (Manual) Eosinophils % (Manual) Basophils % (Manual) Seg Neutrophils # Seg Neutrophils # Man Lymphocytes # (Manual) Monocytes # (Manual) Eosinophils # (Manual) Nucleated RBC % Basophils # (Manual) PT INR APTT Heparin Anti-Xa Level ABG pH POC ABG pO2 ABG pO2 ABG HCO3 ABG O2 Saturation ABG Base Excess POC ABG pCO2 ABG Hemoglobin ABG Oxyhemoglobin ABG Chloride ABG Glucose Oxyhemoglobin Sodium Potassium Chloride Carbon Dioxide BUN Creatinine Glucose POC Glucose 209 H 119 H Lactic Acid Calcium Phosphorus Magnesium AST ALT Lactate Dehydrogenase Total Bilirubin Direct Bilirubin CK-MB (CK-2) C-Reactive Protein NT-Pro-B Natriuret Pep Total Protein Albumin Arterial Blood Glucose Urine WBC (Auto) Urine Creatinine 12/23/19 12/23/19 12/23/19 03:51 05:31 12:09 WBC RBC Hgb Hct MCHC RDW MCV MCH Lymph % (Auto) Carter % (Auto) Carter # Eos # Lymph # (Auto) Carter # (Auto) Eos # (Auto) Seg Neutrophils % Seg Neuts % (Manual) Baso # (Auto) Lymphocytes % (Manual) Monocytes % (Manual) Eosinophils % (Manual) Basophils % (Manual) Seg Neutrophils # Seg Neutrophils # Man Lymphocytes # (Manual) Monocytes # (Manual) Eosinophils # (Manual) Nucleated RBC % Basophils # (Manual) PT INR APTT Heparin Anti-Xa Level ABG pH POC ABG pO2 ABG pO2 ABG HCO3 ABG O2 Saturation ABG Base Excess POC ABG pCO2 ABG Hemoglobin ABG Oxyhemoglobin ABG Chloride ABG Glucose Oxyhemoglobin Sodium Potassium Chloride 97.2 L Carbon Dioxide 31 H BUN 23 H Creatinine 0.6 L Glucose 153 H POC Glucose 149 H 144 H Lactic Acid Calcium Phosphorus Magnesium AST ALT Lactate Dehydrogenase Total Bilirubin Direct Bilirubin CK-MB (CK-2) C-Reactive Protein NT-Pro-B Natriuret Pep Total Protein Albumin Arterial Blood Glucose Urine WBC (Auto) Urine Creatinine 12/23/19 12/23/19 12/23/19 15:30 17:49 23:31 WBC RBC Hgb Hct MCHC RDW MCV MCH Lymph % (Auto) Carter % (Auto) Carter # Eos # Lymph # (Auto) Carter # (Auto) Eos # (Auto) Seg Neutrophils % Seg Neuts % (Manual) Baso # (Auto) Lymphocytes % (Manual) Monocytes % (Manual) Eosinophils % (Manual) Basophils % (Manual) Seg Neutrophils # Seg Neutrophils # Man Lymphocytes # (Manual) Monocytes # (Manual) Eosinophils # (Manual) Nucleated RBC % Basophils # (Manual) PT INR APTT Heparin Anti-Xa Level 0.21 L ABG pH POC ABG pO2 ABG pO2 ABG HCO3 ABG O2 Saturation ABG Base Excess POC ABG pCO2 ABG Hemoglobin ABG Oxyhemoglobin ABG Chloride ABG Glucose Oxyhemoglobin Sodium Potassium Chloride Carbon Dioxide BUN Creatinine Glucose POC Glucose 192 H 151 H Lactic Acid Calcium Phosphorus Magnesium AST ALT Lactate Dehydrogenase Total Bilirubin Direct Bilirubin CK-MB (CK-2) C-Reactive Protein NT-Pro-B Natriuret Pep Total Protein Albumin Arterial Blood Glucose Urine WBC (Auto) Urine Creatinine 12/24/19 12/24/19 12/24/19 05:34 12:13 16:50 WBC RBC Hgb Hct MCHC RDW MCV MCH Lymph % (Auto) Carter % (Auto) Carter # Eos # Lymph # (Auto) Carter # (Auto) Eos # (Auto) Seg Neutrophils % Seg Neuts % (Manual) Baso # (Auto) Lymphocytes % (Manual) Monocytes % (Manual) Eosinophils % (Manual) Basophils % (Manual) Seg Neutrophils # Seg Neutrophils # Man Lymphocytes # (Manual) Monocytes # (Manual) Eosinophils # (Manual) Nucleated RBC % Basophils # (Manual) PT INR APTT Heparin Anti-Xa Level 0.16 L ABG pH POC ABG pO2 ABG pO2 ABG HCO3 ABG O2 Saturation ABG Base Excess POC ABG pCO2 ABG Hemoglobin ABG Oxyhemoglobin ABG Chloride ABG Glucose Oxyhemoglobin Sodium Potassium Chloride Carbon Dioxide BUN Creatinine Glucose POC Glucose 145 H 124 H Lactic Acid Calcium Phosphorus Magnesium AST ALT Lactate Dehydrogenase Total Bilirubin Direct Bilirubin CK-MB (CK-2) C-Reactive Protein NT-Pro-B Natriuret Pep Total Protein Albumin Arterial Blood Glucose Urine WBC (Auto) Urine Creatinine 12/24/19 12/25/19 12/25/19 17:53 00:14 04:18 WBC 12.9 H RBC 3.30 L Hgb 9.1 L Hct 28.8 L MCHC RDW 16.4 H MCV MCH Lymph % (Auto) Carter % (Auto) 7.8 H Carter # Eos # Lymph # (Auto) Carter # (Auto) 1.0 H Eos # (Auto) Seg Neutrophils % 75.5 H Seg Neuts % (Manual) Baso # (Auto) Lymphocytes % (Manual) Monocytes % (Manual) Eosinophils % (Manual) Basophils % (Manual) Seg Neutrophils # 9.7 H Seg Neutrophils # Man Lymphocytes # (Manual) Monocytes # (Manual) Eosinophils # (Manual) Nucleated RBC % Basophils # (Manual) PT INR APTT Heparin Anti-Xa Level ABG pH POC ABG pO2 ABG pO2 ABG HCO3 ABG O2 Saturation ABG Base Excess POC ABG pCO2 ABG Hemoglobin ABG Oxyhemoglobin ABG Chloride ABG Glucose Oxyhemoglobin Sodium Potassium Chloride Carbon Dioxide BUN Creatinine Glucose POC Glucose 164 H 148 H Lactic Acid Calcium Phosphorus Magnesium AST ALT Lactate Dehydrogenase Total Bilirubin Direct Bilirubin CK-MB (CK-2) C-Reactive Protein NT-Pro-B Natriuret Pep Total Protein Albumin Arterial Blood Glucose Urine WBC (Auto) Urine Creatinine 12/25/19 12/25/19 12/25/19 04:18 05:38 11:44 WBC RBC Hgb Hct MCHC RDW MCV MCH Lymph % (Auto) Carter % (Auto) Carter # Eos # Lymph # (Auto) Carter # (Auto) Eos # (Auto) Seg Neutrophils % Seg Neuts % (Manual) Baso # (Auto) Lymphocytes % (Manual) Monocytes % (Manual) Eosinophils % (Manual) Basophils % (Manual) Seg Neutrophils # Seg Neutrophils # Man Lymphocytes # (Manual) Monocytes # (Manual) Eosinophils # (Manual) Nucleated RBC % Basophils # (Manual) PT INR APTT Heparin Anti-Xa Level ABG pH POC ABG pO2 ABG pO2 ABG HCO3 ABG O2 Saturation ABG Base Excess POC ABG pCO2 ABG Hemoglobin ABG Oxyhemoglobin ABG Chloride ABG Glucose Oxyhemoglobin Sodium Potassium Chloride Carbon Dioxide 33 H BUN 27 H Creatinine 0.6 L Glucose 132 H POC Glucose 152 H 166 H Lactic Acid Calcium Phosphorus Magnesium AST ALT Lactate Dehydrogenase Total Bilirubin Direct Bilirubin CK-MB (CK-2) C-Reactive Protein NT-Pro-B Natriuret Pep Total Protein Albumin Arterial Blood Glucose Urine WBC (Auto) Urine Creatinine 12/25/19 12/26/19 12/26/19 18:29 00:17 00:18 WBC RBC Hgb Hct MCHC RDW MCV MCH Lymph % (Auto) Carter % (Auto) Carter # Eos # Lymph # (Auto) Carter # (Auto) Eos # (Auto) Seg Neutrophils % Seg Neuts % (Manual) Baso # (Auto) Lymphocytes % (Manual) Monocytes % (Manual) Eosinophils % (Manual) Basophils % (Manual) Seg Neutrophils # Seg Neutrophils # Man Lymphocytes # (Manual) Monocytes # (Manual) Eosinophils # (Manual) Nucleated RBC % Basophils # (Manual) PT INR APTT Heparin Anti-Xa Level ABG pH POC ABG pO2 ABG pO2 ABG HCO3 ABG O2 Saturation ABG Base Excess POC ABG pCO2 ABG Hemoglobin ABG Oxyhemoglobin ABG Chloride ABG Glucose Oxyhemoglobin Sodium Potassium Chloride 97.8 L Carbon Dioxide BUN 25 H Creatinine 0.6 L Glucose 140 H POC Glucose 194 H 151 H Lactic Acid Calcium Phosphorus Magnesium AST ALT Lactate Dehydrogenase Total Bilirubin Direct Bilirubin CK-MB (CK-2) C-Reactive Protein NT-Pro-B Natriuret Pep Total Protein Albumin Arterial Blood Glucose Urine WBC (Auto) Urine Creatinine 12/26/19 12/26/19 12/26/19 05:36 11:41 17:50 WBC RBC Hgb Hct MCHC RDW MCV MCH Lymph % (Auto) Carter % (Auto) Carter # Eos # Lymph # (Auto) Carter # (Auto) Eos # (Auto) Seg Neutrophils % Seg Neuts % (Manual) Baso # (Auto) Lymphocytes % (Manual) Monocytes % (Manual) Eosinophils % (Manual) Basophils % (Manual) Seg Neutrophils # Seg Neutrophils # Man Lymphocytes # (Manual) Monocytes # (Manual) Eosinophils # (Manual) Nucleated RBC % Basophils # (Manual) PT INR APTT Heparin Anti-Xa Level ABG pH POC ABG pO2 ABG pO2 ABG HCO3 ABG O2 Saturation ABG Base Excess POC ABG pCO2 ABG Hemoglobin ABG Oxyhemoglobin ABG Chloride ABG Glucose Oxyhemoglobin Sodium Potassium Chloride Carbon Dioxide BUN Creatinine Glucose POC Glucose 156 H 148 H 139 H Lactic Acid Calcium Phosphorus Magnesium AST ALT Lactate Dehydrogenase Total Bilirubin Direct Bilirubin CK-MB (CK-2) C-Reactive Protein NT-Pro-B Natriuret Pep Total Protein Albumin Arterial Blood Glucose Urine WBC (Auto) Urine Creatinine 12/26/19 12/27/19 12/27/19 23:19 05:34 12:02 WBC RBC Hgb Hct MCHC RDW MCV MCH Lymph % (Auto) Carter % (Auto) Carter # Eos # Lymph # (Auto) Carter # (Auto) Eos # (Auto) Seg Neutrophils % Seg Neuts % (Manual) Baso # (Auto) Lymphocytes % (Manual) Monocytes % (Manual) Eosinophils % (Manual) Basophils % (Manual) Seg Neutrophils # Seg Neutrophils # Man Lymphocytes # (Manual) Monocytes # (Manual) Eosinophils # (Manual) Nucleated RBC % Basophils # (Manual) PT INR APTT Heparin Anti-Xa Level ABG pH POC ABG pO2 ABG pO2 ABG HCO3 ABG O2 Saturation ABG Base Excess POC ABG pCO2 ABG Hemoglobin ABG Oxyhemoglobin ABG Chloride ABG Glucose Oxyhemoglobin Sodium Potassium Chloride Carbon Dioxide BUN Creatinine Glucose POC Glucose 161 H 145 H 157 H Lactic Acid Calcium Phosphorus Magnesium AST ALT Lactate Dehydrogenase Total Bilirubin Direct Bilirubin CK-MB (CK-2) C-Reactive Protein NT-Pro-B Natriuret Pep Total Protein Albumin Arterial Blood Glucose Urine WBC (Auto) Urine Creatinine 12/27/19 12/27/19 12/27/19 17:35 20:11 23:00 WBC RBC Hgb Hct MCHC RDW MCV MCH Lymph % (Auto) Carter % (Auto) Carter # Eos # Lymph # (Auto) Carter # (Auto) Eos # (Auto) Seg Neutrophils % Seg Neuts % (Manual) Baso # (Auto) Lymphocytes % (Manual) Monocytes % (Manual) Eosinophils % (Manual) Basophils % (Manual) Seg Neutrophils # Seg Neutrophils # Man Lymphocytes # (Manual) Monocytes # (Manual) Eosinophils # (Manual) Nucleated RBC % Basophils # (Manual) PT INR APTT Heparin Anti-Xa Level 0.19 L ABG pH POC ABG pO2 ABG pO2 ABG HCO3 ABG O2 Saturation ABG Base Excess POC ABG pCO2 ABG Hemoglobin ABG Oxyhemoglobin ABG Chloride ABG Glucose Oxyhemoglobin Sodium Potassium Chloride Carbon Dioxide BUN Creatinine Glucose POC Glucose 158 H 155 H Lactic Acid Calcium Phosphorus Magnesium AST ALT Lactate Dehydrogenase Total Bilirubin Direct Bilirubin CK-MB (CK-2) C-Reactive Protein NT-Pro-B Natriuret Pep Total Protein Albumin Arterial Blood Glucose Urine WBC (Auto) Urine Creatinine 12/27/19 12/28/19 12/28/19 23:45 02:41 02:41 WBC 13.0 H RBC 3.48 L Hgb 9.5 L Hct 30.6 L MCHC 31 L RDW 16.6 H MCV MCH 27 L Lymph % (Auto) 13.0 L Carter % (Auto) 8.0 H Carter # Eos # Lymph # (Auto) Carter # (Auto) 1.0 H Eos # (Auto) Seg Neutrophils % 76.3 H Seg Neuts % (Manual) Baso # (Auto) Lymphocytes % (Manual) Monocytes % (Manual) Eosinophils % (Manual) Basophils % (Manual) Seg Neutrophils # 9.9 H Seg Neutrophils # Man Lymphocytes # (Manual) Monocytes # (Manual) Eosinophils # (Manual) Nucleated RBC % Basophils # (Manual) PT INR APTT Heparin Anti-Xa Level ABG pH POC ABG pO2 ABG pO2 ABG HCO3 ABG O2 Saturation ABG Base Excess POC ABG pCO2 ABG Hemoglobin ABG Oxyhemoglobin ABG Chloride ABG Glucose Oxyhemoglobin Sodium Potassium Chloride Carbon Dioxide BUN 22 H Creatinine 0.6 L Glucose 101 H POC Glucose 130 H Lactic Acid Calcium Phosphorus Magnesium AST ALT Lactate Dehydrogenase Total Bilirubin Direct Bilirubin CK-MB (CK-2) C-Reactive Protein NT-Pro-B Natriuret Pep Total Protein Albumin Arterial Blood Glucose Urine WBC (Auto) Urine Creatinine 12/28/19 12/28/19 12/28/19 06:00 12:34 18:13 WBC RBC Hgb Hct MCHC RDW MCV MCH Lymph % (Auto) Carter % (Auto) Carter # Eos # Lymph # (Auto) Carter # (Auto) Eos # (Auto) Seg Neutrophils % Seg Neuts % (Manual) Baso # (Auto) Lymphocytes % (Manual) Monocytes % (Manual) Eosinophils % (Manual) Basophils % (Manual) Seg Neutrophils # Seg Neutrophils # Man Lymphocytes # (Manual) Monocytes # (Manual) Eosinophils # (Manual) Nucleated RBC % Basophils # (Manual) PT INR APTT Heparin Anti-Xa Level ABG pH POC ABG pO2 ABG pO2 ABG HCO3 ABG O2 Saturation ABG Base Excess POC ABG pCO2 ABG Hemoglobin ABG Oxyhemoglobin ABG Chloride ABG Glucose Oxyhemoglobin Sodium Potassium Chloride Carbon Dioxide BUN Creatinine Glucose POC Glucose 150 H 161 H 128 H Lactic Acid Calcium Phosphorus Magnesium AST ALT Lactate Dehydrogenase Total Bilirubin Direct Bilirubin CK-MB (CK-2) C-Reactive Protein NT-Pro-B Natriuret Pep Total Protein Albumin Arterial Blood Glucose Urine WBC (Auto) Urine Creatinine 12/28/19 12/29/19 12/29/19 23:36 05:21 11:40 WBC RBC Hgb Hct MCHC RDW MCV MCH Lymph % (Auto) Carter % (Auto) Carter # Eos # Lymph # (Auto) Carter # (Auto) Eos # (Auto) Seg Neutrophils % Seg Neuts % (Manual) Baso # (Auto) Lymphocytes % (Manual) Monocytes % (Manual) Eosinophils % (Manual) Basophils % (Manual) Seg Neutrophils # Seg Neutrophils # Man Lymphocytes # (Manual) Monocytes # (Manual) Eosinophils # (Manual) Nucleated RBC % Basophils # (Manual) PT INR APTT Heparin Anti-Xa Level ABG pH POC ABG pO2 ABG pO2 ABG HCO3 ABG O2 Saturation ABG Base Excess POC ABG pCO2 ABG Hemoglobin ABG Oxyhemoglobin ABG Chloride ABG Glucose Oxyhemoglobin Sodium Potassium Chloride Carbon Dioxide BUN Creatinine Glucose POC Glucose 137 H 136 H 166 H Lactic Acid Calcium Phosphorus Magnesium AST ALT Lactate Dehydrogenase Total Bilirubin Direct Bilirubin CK-MB (CK-2) C-Reactive Protein NT-Pro-B Natriuret Pep Total Protein Albumin Arterial Blood Glucose Urine WBC (Auto) Urine Creatinine 12/29/19 12/29/19 12/29/19 17:23 19:21 23:38 WBC RBC Hgb Hct MCHC RDW MCV MCH Lymph % (Auto) Carter % (Auto) Carter # Eos # Lymph # (Auto) Carter # (Auto) Eos # (Auto) Seg Neutrophils % Seg Neuts % (Manual) Baso # (Auto) Lymphocytes % (Manual) Monocytes % (Manual) Eosinophils % (Manual) Basophils % (Manual) Seg Neutrophils # Seg Neutrophils # Man Lymphocytes # (Manual) Monocytes # (Manual) Eosinophils # (Manual) Nucleated RBC % Basophils # (Manual) PT INR APTT Heparin Anti-Xa Level 0.20 L ABG pH POC ABG pO2 ABG pO2 ABG HCO3 ABG O2 Saturation ABG Base Excess POC ABG pCO2 ABG Hemoglobin ABG Oxyhemoglobin ABG Chloride ABG Glucose Oxyhemoglobin Sodium Potassium Chloride Carbon Dioxide BUN Creatinine Glucose POC Glucose 144 H 141 H Lactic Acid Calcium Phosphorus Magnesium AST ALT Lactate Dehydrogenase Total Bilirubin Direct Bilirubin CK-MB (CK-2) C-Reactive Protein NT-Pro-B Natriuret Pep Total Protein Albumin Arterial Blood Glucose Urine WBC (Auto) Urine Creatinine 12/30/19 12/30/19 12/30/19 03:58 03:58 04:59 WBC RBC 3.54 L Hgb 9.8 L Hct 30.7 L MCHC RDW 16.8 H MCV MCH Lymph % (Auto) Carter % (Auto) Carter # Eos # Lymph # (Auto) Carter # (Auto) Eos # (Auto) Seg Neutrophils % Seg Neuts % (Manual) Baso # (Auto) Lymphocytes % (Manual) Monocytes % (Manual) Eosinophils % (Manual) Basophils % (Manual) Seg Neutrophils # Seg Neutrophils # Man Lymphocytes # (Manual) Monocytes # (Manual) Eosinophils # (Manual) Nucleated RBC % Basophils # (Manual) PT INR APTT Heparin Anti-Xa Level ABG pH POC ABG pO2 ABG pO2 ABG HCO3 29.8 H ABG O2 Saturation ABG Base Excess 4.8 H POC ABG pCO2 ABG Hemoglobin 11.2 L ABG Oxyhemoglobin ABG Chloride ABG Glucose Oxyhemoglobin 93.8 L Sodium Potassium Chloride 97.8 L Carbon Dioxide BUN 26 H Creatinine Glucose 168 H POC Glucose Lactic Acid Calcium Phosphorus Magnesium AST ALT Lactate Dehydrogenase Total Bilirubin Direct Bilirubin CK-MB (CK-2) C-Reactive Protein NT-Pro-B Natriuret Pep Total Protein Albumin Arterial Blood Glucose Urine WBC (Auto) Urine Creatinine 12/30/19 12/30/19 12/30/19 05:45 11:34 17:28 WBC RBC Hgb Hct MCHC RDW MCV MCH Lymph % (Auto) Carter % (Auto) Carter # Eos # Lymph # (Auto) Carter # (Auto) Eos # (Auto) Seg Neutrophils % Seg Neuts % (Manual) Baso # (Auto) Lymphocytes % (Manual) Monocytes % (Manual) Eosinophils % (Manual) Basophils % (Manual) Seg Neutrophils # Seg Neutrophils # Man Lymphocytes # (Manual) Monocytes # (Manual) Eosinophils # (Manual) Nucleated RBC % Basophils # (Manual) PT INR APTT Heparin Anti-Xa Level ABG pH POC ABG pO2 ABG pO2 ABG HCO3 ABG O2 Saturation ABG Base Excess POC ABG pCO2 ABG Hemoglobin ABG Oxyhemoglobin ABG Chloride ABG Glucose Oxyhemoglobin Sodium Potassium Chloride Carbon Dioxide BUN Creatinine Glucose POC Glucose 163 H 180 H 150 H Lactic Acid Calcium Phosphorus Magnesium AST ALT Lactate Dehydrogenase Total Bilirubin Direct Bilirubin CK-MB (CK-2) C-Reactive Protein NT-Pro-B Natriuret Pep Total Protein Albumin Arterial Blood Glucose Urine WBC (Auto) Urine Creatinine 12/30/19 12/31/19 12/31/19 23:43 04:55 05:07 WBC RBC Hgb Hct MCHC RDW MCV MCH Lymph % (Auto) Carter % (Auto) Carter # Eos # Lymph # (Auto) Carter # (Auto) Eos # (Auto) Seg Neutrophils % Seg Neuts % (Manual) Baso # (Auto) Lymphocytes % (Manual) Monocytes % (Manual) Eosinophils % (Manual) Basophils % (Manual) Seg Neutrophils # Seg Neutrophils # Man Lymphocytes # (Manual) Monocytes # (Manual) Eosinophils # (Manual) Nucleated RBC % Basophils # (Manual) PT INR APTT Heparin Anti-Xa Level ABG pH POC ABG pO2 ABG pO2 ABG HCO3 ABG O2 Saturation ABG Base Excess POC ABG pCO2 ABG Hemoglobin ABG Oxyhemoglobin ABG Chloride ABG Glucose Oxyhemoglobin Sodium Potassium 5.6 H D Chloride Carbon Dioxide BUN 33 H Creatinine Glucose 131 H POC Glucose 142 H 134 H Lactic Acid Calcium Phosphorus Magnesium AST ALT Lactate Dehydrogenase Total Bilirubin Direct Bilirubin CK-MB (CK-2) C-Reactive Protein NT-Pro-B Natriuret Pep Total Protein Albumin Arterial Blood Glucose Urine WBC (Auto) Urine Creatinine 12/31/19 12/31/19 12/31/19 11:30 17:19 17:36 WBC RBC Hgb Hct MCHC RDW MCV MCH Lymph % (Auto) Carter % (Auto) Carter # Eos # Lymph # (Auto) Carter # (Auto) Eos # (Auto) Seg Neutrophils % Seg Neuts % (Manual) Baso # (Auto) Lymphocytes % (Manual) Monocytes % (Manual) Eosinophils % (Manual) Basophils % (Manual) Seg Neutrophils # Seg Neutrophils # Man Lymphocytes # (Manual) Monocytes # (Manual) Eosinophils # (Manual) Nucleated RBC % Basophils # (Manual) PT INR APTT Heparin Anti-Xa Level ABG pH POC ABG pO2 ABG pO2 ABG HCO3 ABG O2 Saturation ABG Base Excess POC ABG pCO2 ABG Hemoglobin ABG Oxyhemoglobin ABG Chloride ABG Glucose Oxyhemoglobin Sodium Potassium Chloride Carbon Dioxide BUN 35 H Creatinine Glucose 156 H POC Glucose 158 H 181 H Lactic Acid Calcium Phosphorus Magnesium AST ALT Lactate Dehydrogenase Total Bilirubin Direct Bilirubin CK-MB (CK-2) C-Reactive Protein NT-Pro-B Natriuret Pep Total Protein Albumin Arterial Blood Glucose Urine WBC (Auto) Urine Creatinine 12/31/19 12/31/19 12/31/19 18:16 19:41 21:53 WBC RBC Hgb Hct MCHC RDW MCV MCH Lymph % (Auto) Carter % (Auto) Carter # Eos # Lymph # (Auto) Carter # (Auto) Eos # (Auto) Seg Neutrophils % Seg Neuts % (Manual) Baso # (Auto) Lymphocytes % (Manual) Monocytes % (Manual) Eosinophils % (Manual) Basophils % (Manual) Seg Neutrophils # Seg Neutrophils # Man Lymphocytes # (Manual) Monocytes # (Manual) Eosinophils # (Manual) Nucleated RBC % Basophils # (Manual) PT INR APTT Heparin Anti-Xa Level 0.20 L ABG pH POC ABG pO2 ABG pO2 ABG HCO3 ABG O2 Saturation ABG Base Excess POC ABG pCO2 ABG Hemoglobin ABG Oxyhemoglobin ABG Chloride ABG Glucose Oxyhemoglobin Sodium Potassium Chloride Carbon Dioxide BUN 34 H Creatinine Glucose 169 H POC Glucose 141 H Lactic Acid Calcium Phosphorus Magnesium AST ALT Lactate Dehydrogenase Total Bilirubin Direct Bilirubin CK-MB (CK-2) C-Reactive Protein NT-Pro-B Natriuret Pep Total Protein Albumin Arterial Blood Glucose Urine WBC (Auto) Urine Creatinine 12/31/19 01/01/20 01/01/20 23:51 05:17 10:40 WBC RBC Hgb Hct MCHC RDW MCV MCH Lymph % (Auto) Carter % (Auto) Carter # Eos # Lymph # (Auto) Carter # (Auto) Eos # (Auto) Seg Neutrophils % Seg Neuts % (Manual) Baso # (Auto) Lymphocytes % (Manual) Monocytes % (Manual) Eosinophils % (Manual) Basophils % (Manual) Seg Neutrophils # Seg Neutrophils # Man Lymphocytes # (Manual) Monocytes # (Manual) Eosinophils # (Manual) Nucleated RBC % Basophils # (Manual) PT INR APTT Heparin Anti-Xa Level ABG pH POC ABG pO2 ABG pO2 ABG HCO3 ABG O2 Saturation ABG Base Excess POC ABG pCO2 ABG Hemoglobin ABG Oxyhemoglobin ABG Chloride ABG Glucose Oxyhemoglobin Sodium Potassium Chloride Carbon Dioxide BUN 31 H Creatinine 0.7 L Glucose 137 H POC Glucose 131 H 155 H Lactic Acid Calcium Phosphorus Magnesium AST 73 H ALT 97 H Lactate Dehydrogenase Total Bilirubin Direct Bilirubin CK-MB (CK-2) C-Reactive Protein NT-Pro-B Natriuret Pep 3866 H Total Protein Albumin 2.8 L Arterial Blood Glucose Urine WBC (Auto) Urine Creatinine 01/01/20 01/01/20 01/01/20 12:26 15:33 17:53 WBC 14.3 H RBC 3.35 L Hgb 9.1 L Hct 28.8 L MCHC RDW 17.0 H MCV MCH 27 L Lymph % (Auto) 7.0 L Carter % (Auto) 7.6 H Carter # Eos # Lymph # (Auto) 1.0 L Carter # (Auto) 1.1 H Eos # (Auto) Seg Neutrophils % 83.3 H Seg Neuts % (Manual) Baso # (Auto) Lymphocytes % (Manual) Monocytes % (Manual) Eosinophils % (Manual) Basophils % (Manual) Seg Neutrophils # 12.0 H Seg Neutrophils # Man Lymphocytes # (Manual) Monocytes # (Manual) Eosinophils # (Manual) Nucleated RBC % Basophils # (Manual) PT INR APTT Heparin Anti-Xa Level ABG pH POC ABG pO2 ABG pO2 ABG HCO3 ABG O2 Saturation ABG Base Excess POC ABG pCO2 ABG Hemoglobin ABG Oxyhemoglobin ABG Chloride ABG Glucose Oxyhemoglobin Sodium Potassium Chloride Carbon Dioxide BUN Creatinine Glucose POC Glucose 128 H 128 H Lactic Acid Calcium Phosphorus Magnesium AST ALT Lactate Dehydrogenase Total Bilirubin Direct Bilirubin CK-MB (CK-2) C-Reactive Protein NT-Pro-B Natriuret Pep Total Protein Albumin Arterial Blood Glucose Urine WBC (Auto) Urine Creatinine 01/01/20 01/02/20 01/02/20 23:04 05:39 07:00 WBC RBC Hgb Hct MCHC RDW MCV MCH Lymph % (Auto) Carter % (Auto) Carter # Eos # Lymph # (Auto) Carter # (Auto) Eos # (Auto) Seg Neutrophils % Seg Neuts % (Manual) Baso # (Auto) Lymphocytes % (Manual) Monocytes % (Manual) Eosinophils % (Manual) Basophils % (Manual) Seg Neutrophils # Seg Neutrophils # Man Lymphocytes # (Manual) Monocytes # (Manual) Eosinophils # (Manual) Nucleated RBC % Basophils # (Manual) PT INR APTT Heparin Anti-Xa Level 0.13 L ABG pH POC ABG pO2 ABG pO2 ABG HCO3 ABG O2 Saturation ABG Base Excess POC ABG pCO2 ABG Hemoglobin ABG Oxyhemoglobin ABG Chloride ABG Glucose Oxyhemoglobin Sodium Potassium Chloride Carbon Dioxide BUN Creatinine Glucose POC Glucose 120 H 169 H Lactic Acid Calcium Phosphorus Magnesium AST ALT Lactate Dehydrogenase Total Bilirubin Direct Bilirubin CK-MB (CK-2) C-Reactive Protein NT-Pro-B Natriuret Pep Total Protein Albumin Arterial Blood Glucose Urine WBC (Auto) Urine Creatinine 01/02/20 01/02/20 01/02/20 12:15 14:06 17:58 WBC RBC Hgb Hct MCHC RDW MCV MCH Lymph % (Auto) Carter % (Auto) Carter # Eos # Lymph # (Auto) Carter # (Auto) Eos # (Auto) Seg Neutrophils % Seg Neuts % (Manual) Baso # (Auto) Lymphocytes % (Manual) Monocytes % (Manual) Eosinophils % (Manual) Basophils % (Manual) Seg Neutrophils # Seg Neutrophils # Man Lymphocytes # (Manual) Monocytes # (Manual) Eosinophils # (Manual) Nucleated RBC % Basophils # (Manual) PT INR APTT Heparin Anti-Xa Level < 0.10 L ABG pH POC ABG pO2 ABG pO2 ABG HCO3 ABG O2 Saturation ABG Base Excess POC ABG pCO2 ABG Hemoglobin ABG Oxyhemoglobin ABG Chloride ABG Glucose Oxyhemoglobin Sodium Potassium Chloride Carbon Dioxide BUN Creatinine Glucose POC Glucose 190 H 198 H Lactic Acid Calcium Phosphorus Magnesium AST ALT Lactate Dehydrogenase Total Bilirubin Direct Bilirubin CK-MB (CK-2) C-Reactive Protein NT-Pro-B Natriuret Pep Total Protein Albumin Arterial Blood Glucose Urine WBC (Auto) Urine Creatinine 01/02/20 01/02/20 01/03/20 21:43 23:33 05:42 WBC RBC Hgb Hct MCHC RDW MCV MCH Lymph % (Auto) Carter % (Auto) Carter # Eos # Lymph # (Auto) Carter # (Auto) Eos # (Auto) Seg Neutrophils % Seg Neuts % (Manual) Baso # (Auto) Lymphocytes % (Manual) Monocytes % (Manual) Eosinophils % (Manual) Basophils % (Manual) Seg Neutrophils # Seg Neutrophils # Man Lymphocytes # (Manual) Monocytes # (Manual) Eosinophils # (Manual) Nucleated RBC % Basophils # (Manual) PT INR APTT Heparin Anti-Xa Level 0.10 L ABG pH POC ABG pO2 ABG pO2 ABG HCO3 ABG O2 Saturation ABG Base Excess POC ABG pCO2 ABG Hemoglobin ABG Oxyhemoglobin ABG Chloride ABG Glucose Oxyhemoglobin Sodium Potassium Chloride Carbon Dioxide BUN Creatinine Glucose POC Glucose 180 H 163 H Lactic Acid Calcium Phosphorus Magnesium AST ALT Lactate Dehydrogenase Total Bilirubin Direct Bilirubin CK-MB (CK-2) C-Reactive Protein NT-Pro-B Natriuret Pep Total Protein Albumin Arterial Blood Glucose Urine WBC (Auto) Urine Creatinine 01/03/20 01/03/20 01/03/20 06:50 07:25 07:45 WBC 12.1 H RBC 3.35 L Hgb 9.0 L Hct 28.9 L MCHC 31 L RDW 16.6 H MCV MCH 27 L Lymph % (Auto) 13.0 L Carter % (Auto) 8.6 H Carter # Eos # Lymph # (Auto) Carter # (Auto) 1.0 H Eos # (Auto) Seg Neutrophils % 75.9 H Seg Neuts % (Manual) Baso # (Auto) Lymphocytes % (Manual) Monocytes % (Manual) Eosinophils % (Manual) Basophils % (Manual) Seg Neutrophils # 9.2 H Seg Neutrophils # Man Lymphocytes # (Manual) Monocytes # (Manual) Eosinophils # (Manual) Nucleated RBC % Basophils # (Manual) PT INR APTT Heparin Anti-Xa Level 0.29 L ABG pH POC ABG pO2 ABG pO2 ABG HCO3 ABG O2 Saturation ABG Base Excess POC ABG pCO2 ABG Hemoglobin ABG Oxyhemoglobin ABG Chloride ABG Glucose Oxyhemoglobin Sodium Potassium 3.3 L D Chloride Carbon Dioxide 35 H D BUN 23 H Creatinine 0.6 L Glucose 149 H POC Glucose Lactic Acid Calcium Phosphorus Magnesium AST ALT 88 H Lactate Dehydrogenase Total Bilirubin Direct Bilirubin CK-MB (CK-2) C-Reactive Protein NT-Pro-B Natriuret Pep Total Protein 6.2 L Albumin 2.9 L Arterial Blood Glucose Urine WBC (Auto) Urine Creatinine 01/03/20 01/03/20 01/03/20 12:05 17:42 18:30 WBC RBC Hgb Hct MCHC RDW MCV MCH Lymph % (Auto) Carter % (Auto) Carter # Eos # Lymph # (Auto) Carter # (Auto) Eos # (Auto) Seg Neutrophils % Seg Neuts % (Manual) Baso # (Auto) Lymphocytes % (Manual) Monocytes % (Manual) Eosinophils % (Manual) Basophils % (Manual) Seg Neutrophils # Seg Neutrophils # Man Lymphocytes # (Manual) Monocytes # (Manual) Eosinophils # (Manual) Nucleated RBC % Basophils # (Manual) PT INR APTT Heparin Anti-Xa Level ABG pH POC ABG pO2 ABG pO2 70.7 L ABG HCO3 36.1 H ABG O2 Saturation 94.4 L ABG Base Excess 10.0 H POC ABG pCO2 ABG Hemoglobin 9.7 L ABG Oxyhemoglobin ABG Chloride ABG Glucose Oxyhemoglobin 91.8 L Sodium Potassium Chloride Carbon Dioxide BUN Creatinine Glucose POC Glucose 128 H 132 H Lactic Acid Calcium Phosphorus Magnesium AST ALT Lactate Dehydrogenase Total Bilirubin Direct Bilirubin CK-MB (CK-2) C-Reactive Protein NT-Pro-B Natriuret Pep Total Protein Albumin Arterial Blood Glucose Urine WBC (Auto) Urine Creatinine 01/04/20 01/04/20 01/04/20 00:10 04:26 05:23 WBC RBC Hgb Hct MCHC RDW MCV MCH Lymph % (Auto) Carter % (Auto) Carter # Eos # Lymph # (Auto) Carter # (Auto) Eos # (Auto) Seg Neutrophils % Seg Neuts % (Manual) Baso # (Auto) Lymphocytes % (Manual) Monocytes % (Manual) Eosinophils % (Manual) Basophils % (Manual) Seg Neutrophils # Seg Neutrophils # Man Lymphocytes # (Manual) Monocytes # (Manual) Eosinophils # (Manual) Nucleated RBC % Basophils # (Manual) PT INR APTT Heparin Anti-Xa Level 0.16 L ABG pH POC ABG pO2 ABG pO2 ABG HCO3 ABG O2 Saturation ABG Base Excess POC ABG pCO2 ABG Hemoglobin ABG Oxyhemoglobin ABG Chloride ABG Glucose Oxyhemoglobin Sodium Potassium Chloride Carbon Dioxide BUN Creatinine Glucose POC Glucose 121 H 119 H Lactic Acid Calcium Phosphorus Magnesium AST ALT Lactate Dehydrogenase Total Bilirubin Direct Bilirubin CK-MB (CK-2) C-Reactive Protein NT-Pro-B Natriuret Pep Total Protein Albumin Arterial Blood Glucose Urine WBC (Auto) Urine Creatinine 01/04/20 01/04/20 01/04/20 09:50 09:50 12:18 WBC 15.4 H RBC 3.30 L Hgb 8.7 L Hct 28.2 L MCHC 31 L RDW 17.0 H MCV MCH 26 L Lymph % (Auto) Carter % (Auto) 7.6 H Carter # Eos # Lymph # (Auto) Carter # (Auto) 1.2 H Eos # (Auto) Seg Neutrophils % 75.4 H Seg Neuts % (Manual) Baso # (Auto) Lymphocytes % (Manual) Monocytes % (Manual) Eosinophils % (Manual) Basophils % (Manual) Seg Neutrophils # 11.6 H Seg Neutrophils # Man Lymphocytes # (Manual) Monocytes # (Manual) Eosinophils # (Manual) Nucleated RBC % Basophils # (Manual) PT INR APTT Heparin Anti-Xa Level ABG pH POC ABG pO2 ABG pO2 ABG HCO3 ABG O2 Saturation ABG Base Excess POC ABG pCO2 ABG Hemoglobin ABG Oxyhemoglobin ABG Chloride ABG Glucose Oxyhemoglobin Sodium 148 H Potassium 3.5 L Chloride Carbon Dioxide 32 H BUN Creatinine 0.6 L Glucose 114 H POC Glucose 111 H Lactic Acid Calcium Phosphorus Magnesium AST ALT 59 H Lactate Dehydrogenase Total Bilirubin Direct Bilirubin CK-MB (CK-2) C-Reactive Protein NT-Pro-B Natriuret Pep Total Protein Albumin 2.6 L Arterial Blood Glucose Urine WBC (Auto) Urine Creatinine 01/05/20 01/05/20 01/05/20 04:05 04:05 05:19 WBC 11.7 H RBC 3.50 L Hgb 9.3 L Hct 29.9 L MCHC 31 L RDW 16.6 H MCV MCH 27 L Lymph % (Auto) 13.1 L Carter % (Auto) 9.7 H Carter # Eos # Lymph # (Auto) Carter # (Auto) 1.1 H Eos # (Auto) Seg Neutrophils % 74.0 H Seg Neuts % (Manual) Baso # (Auto) Lymphocytes % (Manual) Monocytes % (Manual) Eosinophils % (Manual) Basophils % (Manual) Seg Neutrophils # 8.6 H Seg Neutrophils # Man Lymphocytes # (Manual) Monocytes # (Manual) Eosinophils # (Manual) Nucleated RBC % Basophils # (Manual) PT INR APTT Heparin Anti-Xa Level ABG pH POC ABG pO2 ABG pO2 ABG HCO3 ABG O2 Saturation ABG Base Excess POC ABG pCO2 ABG Hemoglobin ABG Oxyhemoglobin ABG Chloride ABG Glucose Oxyhemoglobin Sodium 151 H Potassium Chloride Carbon Dioxide 34 H BUN Creatinine 0.7 L Glucose POC Glucose 112 H Lactic Acid Calcium Phosphorus Magnesium AST ALT 59 H Lactate Dehydrogenase Total Bilirubin Direct Bilirubin CK-MB (CK-2) C-Reactive Protein NT-Pro-B Natriuret Pep Total Protein 5.8 L Albumin 2.6 L Arterial Blood Glucose Urine WBC (Auto) Urine Creatinine 01/05/20 01/06/20 01/06/20 16:04 00:23 04:44 WBC RBC 3.36 L Hgb 8.9 L Hct 28.7 L MCHC 31 L RDW 16.9 H MCV MCH 26 L Lymph % (Auto) Carter % (Auto) 9.4 H Carter # Eos # Lymph # (Auto) Carter # (Auto) Eos # (Auto) Seg Neutrophils % Seg Neuts % (Manual) Baso # (Auto) Lymphocytes % (Manual) Monocytes % (Manual) Eosinophils % (Manual) Basophils % (Manual) Seg Neutrophils # Seg Neutrophils # Man Lymphocytes # (Manual) Monocytes # (Manual) Eosinophils # (Manual) Nucleated RBC % Basophils # (Manual) PT INR APTT Heparin Anti-Xa Level ABG pH POC ABG pO2 ABG pO2 ABG HCO3 ABG O2 Saturation ABG Base Excess POC ABG pCO2 ABG Hemoglobin ABG Oxyhemoglobin ABG Chloride ABG Glucose Oxyhemoglobin Sodium 151 H Potassium 3.2 L Chloride Carbon Dioxide 34 H BUN Creatinine 0.6 L Glucose POC Glucose 107 H Lactic Acid Calcium Phosphorus Magnesium AST ALT Lactate Dehydrogenase Total Bilirubin Direct Bilirubin CK-MB (CK-2) C-Reactive Protein NT-Pro-B Natriuret Pep Total Protein Albumin Arterial Blood Glucose Urine WBC (Auto) Urine Creatinine 01/06/20 01/06/20 01/06/20 04:44 05:33 12:04 WBC RBC Hgb Hct MCHC RDW MCV MCH Lymph % (Auto) Carter % (Auto) Carter # Eos # Lymph # (Auto) Carter # (Auto) Eos # (Auto) Seg Neutrophils % Seg Neuts % (Manual) Baso # (Auto) Lymphocytes % (Manual) Monocytes % (Manual) Eosinophils % (Manual) Basophils % (Manual) Seg Neutrophils # Seg Neutrophils # Man Lymphocytes # (Manual) Monocytes # (Manual) Eosinophils # (Manual) Nucleated RBC % Basophils # (Manual) PT INR APTT Heparin Anti-Xa Level ABG pH POC ABG pO2 ABG pO2 ABG HCO3 ABG O2 Saturation ABG Base Excess POC ABG pCO2 ABG Hemoglobin ABG Oxyhemoglobin ABG Chloride ABG Glucose Oxyhemoglobin Sodium 151 H Potassium 3.4 L Chloride Carbon Dioxide 33 H BUN Creatinine 0.6 L Glucose 118 H POC Glucose 118 H 123 H Lactic Acid Calcium Phosphorus Magnesium AST ALT Lactate Dehydrogenase Total Bilirubin Direct Bilirubin CK-MB (CK-2) C-Reactive Protein NT-Pro-B Natriuret Pep Total Protein 6.2 L Albumin 2.6 L Arterial Blood Glucose Urine WBC (Auto) Urine Creatinine 01/06/20 01/07/20 01/07/20 17:54 00:06 04:10 WBC RBC 3.42 L Hgb 8.9 L Hct 29.0 L MCHC 31 L RDW 17.1 H MCV MCH 26 L Lymph % (Auto) Carter % (Auto) 8.4 H Carter # Eos # Lymph # (Auto) Carter # (Auto) Eos # (Auto) Seg Neutrophils % Seg Neuts % (Manual) Baso # (Auto) Lymphocytes % (Manual) Monocytes % (Manual) Eosinophils % (Manual) Basophils % (Manual) Seg Neutrophils # Seg Neutrophils # Man Lymphocytes # (Manual) Monocytes # (Manual) Eosinophils # (Manual) Nucleated RBC % Basophils # (Manual) PT INR APTT Heparin Anti-Xa Level ABG pH POC ABG pO2 ABG pO2 ABG HCO3 ABG O2 Saturation ABG Base Excess POC ABG pCO2 ABG Hemoglobin ABG Oxyhemoglobin ABG Chloride ABG Glucose Oxyhemoglobin Sodium Potassium Chloride Carbon Dioxide BUN Creatinine Glucose POC Glucose 112 H 126 H Lactic Acid Calcium Phosphorus Magnesium AST ALT Lactate Dehydrogenase Total Bilirubin Direct Bilirubin CK-MB (CK-2) C-Reactive Protein NT-Pro-B Natriuret Pep Total Protein Albumin Arterial Blood Glucose Urine WBC (Auto) Urine Creatinine 01/07/20 01/07/20 01/07/20 04:10 05:59 12:27 WBC RBC Hgb Hct MCHC RDW MCV MCH Lymph % (Auto) Carter % (Auto) Carter # Eos # Lymph # (Auto) Carter # (Auto) Eos # (Auto) Seg Neutrophils % Seg Neuts % (Manual) Baso # (Auto) Lymphocytes % (Manual) Monocytes % (Manual) Eosinophils % (Manual) Basophils % (Manual) Seg Neutrophils # Seg Neutrophils # Man Lymphocytes # (Manual) Monocytes # (Manual) Eosinophils # (Manual) Nucleated RBC % Basophils # (Manual) PT INR APTT Heparin Anti-Xa Level ABG pH POC ABG pO2 ABG pO2 ABG HCO3 ABG O2 Saturation ABG Base Excess POC ABG pCO2 ABG Hemoglobin ABG Oxyhemoglobin ABG Chloride ABG Glucose Oxyhemoglobin Sodium 153 H Potassium 3.5 L Chloride Carbon Dioxide 34 H BUN Creatinine 0.6 L Glucose 121 H POC Glucose 121 H 126 H Lactic Acid Calcium Phosphorus Magnesium AST ALT Lactate Dehydrogenase Total Bilirubin Direct Bilirubin CK-MB (CK-2) C-Reactive Protein NT-Pro-B Natriuret Pep Total Protein 5.9 L Albumin 2.4 L Arterial Blood Glucose Urine WBC (Auto) Urine Creatinine 01/07/20 01/08/20 01/08/20 18:12 00:03 05:41 WBC RBC Hgb Hct MCHC RDW MCV MCH Lymph % (Auto) Carter % (Auto) Carter # Eos # Lymph # (Auto) Carter # (Auto) Eos # (Auto) Seg Neutrophils % Seg Neuts % (Manual) Baso # (Auto) Lymphocytes % (Manual) Monocytes % (Manual) Eosinophils % (Manual) Basophils % (Manual) Seg Neutrophils # Seg Neutrophils # Man Lymphocytes # (Manual) Monocytes # (Manual) Eosinophils # (Manual) Nucleated RBC % Basophils # (Manual) PT INR APTT Heparin Anti-Xa Level ABG pH POC ABG pO2 ABG pO2 ABG HCO3 ABG O2 Saturation ABG Base Excess POC ABG pCO2 ABG Hemoglobin ABG Oxyhemoglobin ABG Chloride ABG Glucose Oxyhemoglobin Sodium Potassium Chloride Carbon Dioxide BUN Creatinine Glucose POC Glucose 124 H 130 H 138 H Lactic Acid Calcium Phosphorus Magnesium AST ALT Lactate Dehydrogenase Total Bilirubin Direct Bilirubin CK-MB (CK-2) C-Reactive Protein NT-Pro-B Natriuret Pep Total Protein Albumin Arterial Blood Glucose Urine WBC (Auto) Urine Creatinine 01/08/20 01/08/20 01/08/20 09:28 11:42 18:21 WBC RBC Hgb Hct MCHC RDW MCV MCH Lymph % (Auto) Carter % (Auto) Carter # Eos # Lymph # (Auto) Carter # (Auto) Eos # (Auto) Seg Neutrophils % Seg Neuts % (Manual) Baso # (Auto) Lymphocytes % (Manual) Monocytes % (Manual) Eosinophils % (Manual) Basophils % (Manual) Seg Neutrophils # Seg Neutrophils # Man Lymphocytes # (Manual) Monocytes # (Manual) Eosinophils # (Manual) Nucleated RBC % Basophils # (Manual) PT INR APTT Heparin Anti-Xa Level ABG pH POC ABG pO2 ABG pO2 ABG HCO3 ABG O2 Saturation ABG Base Excess POC ABG pCO2 ABG Hemoglobin ABG Oxyhemoglobin ABG Chloride ABG Glucose Oxyhemoglobin Sodium Potassium Chloride Carbon Dioxide BUN Creatinine Glucose POC Glucose 181 H 150 H 129 H Lactic Acid Calcium Phosphorus Magnesium AST ALT Lactate Dehydrogenase Total Bilirubin Direct Bilirubin CK-MB (CK-2) C-Reactive Protein NT-Pro-B Natriuret Pep Total Protein Albumin Arterial Blood Glucose Urine WBC (Auto) Urine Creatinine 01/08/20 01/08/20 01/09/20 19:25 23:55 04:11 WBC RBC 3.43 L Hgb 8.9 L Hct 28.7 L MCHC 31 L RDW 17.6 H MCV MCH 26 L Lymph % (Auto) Carter % (Auto) 8.6 H Carter # Eos # Lymph # (Auto) Carter # (Auto) Eos # (Auto) Seg Neutrophils % Seg Neuts % (Manual) Baso # (Auto) Lymphocytes % (Manual) Monocytes % (Manual) Eosinophils % (Manual) Basophils % (Manual) Seg Neutrophils # Seg Neutrophils # Man Lymphocytes # (Manual) Monocytes # (Manual) Eosinophils # (Manual) Nucleated RBC % Basophils # (Manual) PT INR APTT Heparin Anti-Xa Level ABG pH POC ABG pO2 ABG pO2 ABG HCO3 ABG O2 Saturation ABG Base Excess POC ABG pCO2 ABG Hemoglobin ABG Oxyhemoglobin ABG Chloride ABG Glucose Oxyhemoglobin Sodium Potassium Chloride Carbon Dioxide BUN Creatinine 0.7 L Glucose 117 H POC Glucose 132 H Lactic Acid Calcium Phosphorus Magnesium AST ALT Lactate Dehydrogenase Total Bilirubin Direct Bilirubin CK-MB (CK-2) C-Reactive Protein NT-Pro-B Natriuret Pep Total Protein Albumin Arterial Blood Glucose Urine WBC (Auto) Urine Creatinine 01/09/20 01/09/20 01/09/20 04:11 05:38 22:58 WBC RBC Hgb Hct MCHC RDW MCV MCH Lymph % (Auto) Carter % (Auto) Carter # Eos # Lymph # (Auto) Carter # (Auto) Eos # (Auto) Seg Neutrophils % Seg Neuts % (Manual) Baso # (Auto) Lymphocytes % (Manual) Monocytes % (Manual) Eosinophils % (Manual) Basophils % (Manual) Seg Neutrophils # Seg Neutrophils # Man Lymphocytes # (Manual) Monocytes # (Manual) Eosinophils # (Manual) Nucleated RBC % Basophils # (Manual) PT INR APTT Heparin Anti-Xa Level ABG pH POC ABG pO2 ABG pO2 ABG HCO3 ABG O2 Saturation ABG Base Excess POC ABG pCO2 ABG Hemoglobin ABG Oxyhemoglobin ABG Chloride ABG Glucose Oxyhemoglobin Sodium 147 H Potassium 3.3 L D Chloride Carbon Dioxide 32 H BUN Creatinine 0.6 L Glucose 106 H POC Glucose 107 H 113 H Lactic Acid Calcium Phosphorus Magnesium AST ALT Lactate Dehydrogenase Total Bilirubin Direct Bilirubin CK-MB (CK-2) C-Reactive Protein NT-Pro-B Natriuret Pep Total Protein Albumin Arterial Blood Glucose Urine WBC (Auto) Urine Creatinine 01/10/20 01/10/20 01/10/20 04:05 11:36 17:54 WBC RBC Hgb Hct MCHC RDW MCV MCH Lymph % (Auto) Carter % (Auto) Carter # Eos # Lymph # (Auto) Carter # (Auto) Eos # (Auto) Seg Neutrophils % Seg Neuts % (Manual) Baso # (Auto) Lymphocytes % (Manual) Monocytes % (Manual) Eosinophils % (Manual) Basophils % (Manual) Seg Neutrophils # Seg Neutrophils # Man Lymphocytes # (Manual) Monocytes # (Manual) Eosinophils # (Manual) Nucleated RBC % Basophils # (Manual) PT INR APTT Heparin Anti-Xa Level ABG pH POC ABG pO2 ABG pO2 ABG HCO3 ABG O2 Saturation ABG Base Excess POC ABG pCO2 ABG Hemoglobin ABG Oxyhemoglobin ABG Chloride ABG Glucose Oxyhemoglobin Sodium Potassium Chloride Carbon Dioxide BUN Creatinine 0.7 L Glucose 110 H POC Glucose 129 H 117 H Lactic Acid Calcium Phosphorus Magnesium AST ALT Lactate Dehydrogenase Total Bilirubin Direct Bilirubin CK-MB (CK-2) C-Reactive Protein NT-Pro-B Natriuret Pep Total Protein Albumin Arterial Blood Glucose Urine WBC (Auto) Urine Creatinine 01/10/20 01/11/20 01/11/20 23:52 03:19 12:09 WBC RBC Hgb Hct MCHC RDW MCV MCH Lymph % (Auto) Carter % (Auto) Carter # Eos # Lymph # (Auto) Carter # (Auto) Eos # (Auto) Seg Neutrophils % Seg Neuts % (Manual) Baso # (Auto) Lymphocytes % (Manual) Monocytes % (Manual) Eosinophils % (Manual) Basophils % (Manual) Seg Neutrophils # Seg Neutrophils # Man Lymphocytes # (Manual) Monocytes # (Manual) Eosinophils # (Manual) Nucleated RBC % Basophils # (Manual) PT INR APTT Heparin Anti-Xa Level ABG pH POC ABG pO2 ABG pO2 ABG HCO3 ABG O2 Saturation ABG Base Excess POC ABG pCO2 ABG Hemoglobin ABG Oxyhemoglobin ABG Chloride ABG Glucose Oxyhemoglobin Sodium Potassium Chloride Carbon Dioxide BUN Creatinine Glucose POC Glucose 117 H 136 H 115 H Lactic Acid Calcium Phosphorus Magnesium AST ALT Lactate Dehydrogenase Total Bilirubin Direct Bilirubin CK-MB (CK-2) C-Reactive Protein NT-Pro-B Natriuret Pep Total Protein Albumin Arterial Blood Glucose Urine WBC (Auto) Urine Creatinine 01/11/20 01/11/20 01/12/20 18:27 23:28 00:23 WBC RBC Hgb 9.8 L Hct 31.6 L MCHC 31 L RDW 17.8 H MCV 83 L MCH 26 L Lymph % (Auto) Carter % (Auto) 8.0 H Carter # Eos # Lymph # (Auto) Carter # (Auto) Eos # (Auto) Seg Neutrophils % Seg Neuts % (Manual) Baso # (Auto) Lymphocytes % (Manual) Monocytes % (Manual) Eosinophils % (Manual) Basophils % (Manual) Seg Neutrophils # Seg Neutrophils # Man Lymphocytes # (Manual) Monocytes # (Manual) Eosinophils # (Manual) Nucleated RBC % Basophils # (Manual) PT INR APTT Heparin Anti-Xa Level ABG pH POC ABG pO2 ABG pO2 ABG HCO3 ABG O2 Saturation ABG Base Excess POC ABG pCO2 ABG Hemoglobin ABG Oxyhemoglobin ABG Chloride ABG Glucose Oxyhemoglobin Sodium Potassium Chloride Carbon Dioxide BUN Creatinine Glucose POC Glucose 118 H 122 H Lactic Acid Calcium Phosphorus Magnesium AST ALT Lactate Dehydrogenase Total Bilirubin Direct Bilirubin CK-MB (CK-2) C-Reactive Protein NT-Pro-B Natriuret Pep Total Protein Albumin Arterial Blood Glucose Urine WBC (Auto) Urine Creatinine 01/12/20 01/12/20 01/12/20 00:23 04:18 04:18 WBC RBC Hgb 9.6 L Hct 30.9 L MCHC 31 L RDW 17.3 H MCV 81 L MCH 25 L Lymph % (Auto) Carter % (Auto) Carter # Eos # Lymph # (Auto) Carter # (Auto) Eos # (Auto) Seg Neutrophils % Seg Neuts % (Manual) Baso # (Auto) Lymphocytes % (Manual) Monocytes % (Manual) Eosinophils % (Manual) Basophils % (Manual) Seg Neutrophils # Seg Neutrophils # Man Lymphocytes # (Manual) Monocytes # (Manual) Eosinophils # (Manual) Nucleated RBC % Basophils # (Manual) PT INR APTT Heparin Anti-Xa Level ABG pH POC ABG pO2 ABG pO2 ABG HCO3 ABG O2 Saturation ABG Base Excess POC ABG pCO2 ABG Hemoglobin ABG Oxyhemoglobin ABG Chloride ABG Glucose Oxyhemoglobin Sodium Potassium Chloride Carbon Dioxide BUN Creatinine 0.7 L 0.7 L Glucose 111 H 108 H POC Glucose Lactic Acid Calcium Phosphorus Magnesium AST ALT Lactate Dehydrogenase Total Bilirubin Direct Bilirubin CK-MB (CK-2) C-Reactive Protein NT-Pro-B Natriuret Pep Total Protein Albumin 2.6 L Arterial Blood Glucose Urine WBC (Auto) Urine Creatinine 01/12/20 01/12/20 01/12/20 06:03 12:27 13:58 WBC RBC Hgb Hct MCHC RDW MCV MCH Lymph % (Auto) Carter % (Auto) Carter # Eos # Lymph # (Auto) Carter # (Auto) Eos # (Auto) Seg Neutrophils % Seg Neuts % (Manual) Baso # (Auto) Lymphocytes % (Manual) Monocytes % (Manual) Eosinophils % (Manual) Basophils % (Manual) Seg Neutrophils # Seg Neutrophils # Man Lymphocytes # (Manual) Monocytes # (Manual) Eosinophils # (Manual) Nucleated RBC % Basophils # (Manual) PT INR APTT Heparin Anti-Xa Level ABG pH 7.453 H POC ABG pO2 76.6 L ABG pO2 ABG HCO3 ABG O2 Saturation ABG Base Excess POC ABG pCO2 ABG Hemoglobin 10.3 L ABG Oxyhemoglobin ABG Chloride ABG Glucose 99 H Oxyhemoglobin Sodium Potassium Chloride Carbon Dioxide BUN Creatinine Glucose POC Glucose 128 H 121 H Lactic Acid Calcium Phosphorus Magnesium AST ALT Lactate Dehydrogenase Total Bilirubin Direct Bilirubin CK-MB (CK-2) C-Reactive Protein NT-Pro-B Natriuret Pep Total Protein Albumin Arterial Blood Glucose 99 H Urine WBC (Auto) Urine Creatinine 01/12/20 01/13/20 01/13/20 18:24 12:01 17:46 WBC RBC Hgb Hct MCHC RDW MCV MCH Lymph % (Auto) Carter % (Auto) Carter # Eos # Lymph # (Auto) Carter # (Auto) Eos # (Auto) Seg Neutrophils % Seg Neuts % (Manual) Baso # (Auto) Lymphocytes % (Manual) Monocytes % (Manual) Eosinophils % (Manual) Basophils % (Manual) Seg Neutrophils # Seg Neutrophils # Man Lymphocytes # (Manual) Monocytes # (Manual) Eosinophils # (Manual) Nucleated RBC % Basophils # (Manual) PT INR APTT Heparin Anti-Xa Level ABG pH POC ABG pO2 ABG pO2 ABG HCO3 ABG O2 Saturation ABG Base Excess POC ABG pCO2 ABG Hemoglobin ABG Oxyhemoglobin ABG Chloride ABG Glucose Oxyhemoglobin Sodium Potassium Chloride Carbon Dioxide BUN Creatinine Glucose POC Glucose 119 H 107 H 124 H Lactic Acid Calcium Phosphorus Magnesium AST ALT Lactate Dehydrogenase Total Bilirubin Direct Bilirubin CK-MB (CK-2) C-Reactive Protein NT-Pro-B Natriuret Pep Total Protein Albumin Arterial Blood Glucose Urine WBC (Auto) Urine Creatinine 01/13/20 01/14/20 01/14/20 20:40 00:10 05:33 WBC RBC Hgb Hct MCHC RDW MCV MCH Lymph % (Auto) Carter % (Auto) Carter # Eos # Lymph # (Auto) Carter # (Auto) Eos # (Auto) Seg Neutrophils % Seg Neuts % (Manual) Baso # (Auto) Lymphocytes % (Manual) Monocytes % (Manual) Eosinophils % (Manual) Basophils % (Manual) Seg Neutrophils # Seg Neutrophils # Man Lymphocytes # (Manual) Monocytes # (Manual) Eosinophils # (Manual) Nucleated RBC % Basophils # (Manual) PT INR APTT Heparin Anti-Xa Level ABG pH POC ABG pO2 ABG pO2 65.3 L ABG HCO3 31.8 H ABG O2 Saturation 93.5 L ABG Base Excess 6.7 H POC ABG pCO2 ABG Hemoglobin 13.3 L ABG Oxyhemoglobin ABG Chloride ABG Glucose Oxyhemoglobin 90.9 L Sodium Potassium Chloride Carbon Dioxide BUN Creatinine Glucose POC Glucose 111 H 111 H Lactic Acid Calcium Phosphorus Magnesium AST ALT Lactate Dehydrogenase Total Bilirubin Direct Bilirubin CK-MB (CK-2) C-Reactive Protein NT-Pro-B Natriuret Pep Total Protein Albumin Arterial Blood Glucose Urine WBC (Auto) Urine Creatinine 01/14/20 01/14/20 01/14/20 12:10 16:14 16:14 WBC RBC Hgb 10.6 L Hct 34.2 L MCHC 31 L RDW 18.3 H MCV 83 L MCH 26 L Lymph % (Auto) Carter % (Auto) 7.4 H Carter # Eos # Lymph # (Auto) Carter # (Auto) Eos # (Auto) Seg Neutrophils % 71.9 H Seg Neuts % (Manual) Baso # (Auto) Lymphocytes % (Manual) Monocytes % (Manual) Eosinophils % (Manual) Basophils % (Manual) Seg Neutrophils # Seg Neutrophils # Man Lymphocytes # (Manual) Monocytes # (Manual) Eosinophils # (Manual) Nucleated RBC % Basophils # (Manual) PT INR APTT Heparin Anti-Xa Level ABG pH POC ABG pO2 ABG pO2 ABG HCO3 ABG O2 Saturation ABG Base Excess POC ABG pCO2 ABG Hemoglobin ABG Oxyhemoglobin ABG Chloride ABG Glucose Oxyhemoglobin Sodium Potassium Chloride Carbon Dioxide 31 H BUN Creatinine 0.6 L Glucose 131 H POC Glucose 139 H Lactic Acid Calcium Phosphorus Magnesium AST ALT Lactate Dehydrogenase Total Bilirubin Direct Bilirubin CK-MB (CK-2) C-Reactive Protein NT-Pro-B Natriuret Pep Total Protein Albumin Arterial Blood Glucose Urine WBC (Auto) Urine Creatinine 01/14/20 01/15/20 01/15/20 18:05 00:52 05:35 WBC RBC Hgb Hct MCHC RDW MCV MCH Lymph % (Auto) Carter % (Auto) Carter # Eos # Lymph # (Auto) Carter # (Auto) Eos # (Auto) Seg Neutrophils % Seg Neuts % (Manual) Baso # (Auto) Lymphocytes % (Manual) Monocytes % (Manual) Eosinophils % (Manual) Basophils % (Manual) Seg Neutrophils # Seg Neutrophils # Man Lymphocytes # (Manual) Monocytes # (Manual) Eosinophils # (Manual) Nucleated RBC % Basophils # (Manual) PT INR APTT Heparin Anti-Xa Level ABG pH POC ABG pO2 ABG pO2 ABG HCO3 ABG O2 Saturation ABG Base Excess POC ABG pCO2 ABG Hemoglobin ABG Oxyhemoglobin ABG Chloride ABG Glucose Oxyhemoglobin Sodium Potassium Chloride Carbon Dioxide BUN Creatinine Glucose POC Glucose 147 H 140 H 159 H Lactic Acid Calcium Phosphorus Magnesium AST ALT Lactate Dehydrogenase Total Bilirubin Direct Bilirubin CK-MB (CK-2) C-Reactive Protein NT-Pro-B Natriuret Pep Total Protein Albumin Arterial Blood Glucose Urine WBC (Auto) Urine Creatinine 01/15/20 01/15/20 01/16/20 12:52 17:43 00:32 WBC RBC Hgb Hct MCHC RDW MCV MCH Lymph % (Auto) Carter % (Auto) Carter # Eos # Lymph # (Auto) Carter # (Auto) Eos # (Auto) Seg Neutrophils % Seg Neuts % (Manual) Baso # (Auto) Lymphocytes % (Manual) Monocytes % (Manual) Eosinophils % (Manual) Basophils % (Manual) Seg Neutrophils # Seg Neutrophils # Man Lymphocytes # (Manual) Monocytes # (Manual) Eosinophils # (Manual) Nucleated RBC % Basophils # (Manual) PT INR APTT Heparin Anti-Xa Level ABG pH POC ABG pO2 ABG pO2 ABG HCO3 ABG O2 Saturation ABG Base Excess POC ABG pCO2 ABG Hemoglobin ABG Oxyhemoglobin ABG Chloride ABG Glucose Oxyhemoglobin Sodium Potassium Chloride Carbon Dioxide BUN Creatinine Glucose POC Glucose 164 H 167 H 153 H Lactic Acid Calcium Phosphorus Magnesium AST ALT Lactate Dehydrogenase Total Bilirubin Direct Bilirubin CK-MB (CK-2) C-Reactive Protein NT-Pro-B Natriuret Pep Total Protein Albumin Arterial Blood Glucose Urine WBC (Auto) Urine Creatinine 01/16/20 01/16/20 01/17/20 05:46 11:48 06:38 WBC RBC Hgb Hct MCHC RDW MCV MCH Lymph % (Auto) Carter % (Auto) Carter # Eos # Lymph # (Auto) Carter # (Auto) Eos # (Auto) Seg Neutrophils % Seg Neuts % (Manual) Baso # (Auto) Lymphocytes % (Manual) Monocytes % (Manual) Eosinophils % (Manual) Basophils % (Manual) Seg Neutrophils # Seg Neutrophils # Man Lymphocytes # (Manual) Monocytes # (Manual) Eosinophils # (Manual) Nucleated RBC % Basophils # (Manual) PT INR APTT Heparin Anti-Xa Level ABG pH POC ABG pO2 ABG pO2 ABG HCO3 ABG O2 Saturation ABG Base Excess POC ABG pCO2 ABG Hemoglobin ABG Oxyhemoglobin ABG Chloride ABG Glucose Oxyhemoglobin Sodium Potassium Chloride Carbon Dioxide BUN Creatinine Glucose POC Glucose 163 H 155 H 116 H Lactic Acid Calcium Phosphorus Magnesium AST ALT Lactate Dehydrogenase Total Bilirubin Direct Bilirubin CK-MB (CK-2) C-Reactive Protein NT-Pro-B Natriuret Pep Total Protein Albumin Arterial Blood Glucose Urine WBC (Auto) Urine Creatinine 01/17/20 01/17/20 01/18/20 11:36 17:43 00:12 WBC RBC Hgb Hct MCHC RDW MCV MCH Lymph % (Auto) Carter % (Auto) Carter # Eos # Lymph # (Auto) Carter # (Auto) Eos # (Auto) Seg Neutrophils % Seg Neuts % (Manual) Baso # (Auto) Lymphocytes % (Manual) Monocytes % (Manual) Eosinophils % (Manual) Basophils % (Manual) Seg Neutrophils # Seg Neutrophils # Man Lymphocytes # (Manual) Monocytes # (Manual) Eosinophils # (Manual) Nucleated RBC % Basophils # (Manual) PT INR APTT Heparin Anti-Xa Level ABG pH POC ABG pO2 ABG pO2 ABG HCO3 ABG O2 Saturation ABG Base Excess POC ABG pCO2 ABG Hemoglobin ABG Oxyhemoglobin ABG Chloride ABG Glucose Oxyhemoglobin Sodium Potassium Chloride Carbon Dioxide BUN Creatinine Glucose POC Glucose 110 H 134 H 108 H Lactic Acid Calcium Phosphorus Magnesium AST ALT Lactate Dehydrogenase Total Bilirubin Direct Bilirubin CK-MB (CK-2) C-Reactive Protein NT-Pro-B Natriuret Pep Total Protein Albumin Arterial Blood Glucose Urine WBC (Auto) Urine Creatinine 01/18/20 01/18/20 01/18/20 05:37 06:46 06:46 WBC RBC Hgb 10.1 L Hct 32.2 L MCHC 31 L RDW 18.1 H MCV 81 L MCH 25 L Lymph % (Auto) Carter % (Auto) Carter # Eos # Lymph # (Auto) Carter # (Auto) Eos # (Auto) Seg Neutrophils % 71.9 H Seg Neuts % (Manual) Baso # (Auto) Lymphocytes % (Manual) Monocytes % (Manual) Eosinophils % (Manual) Basophils % (Manual) Seg Neutrophils # Seg Neutrophils # Man Lymphocytes # (Manual) Monocytes # (Manual) Eosinophils # (Manual) Nucleated RBC % Basophils # (Manual) PT INR APTT Heparin Anti-Xa Level ABG pH POC ABG pO2 ABG pO2 ABG HCO3 ABG O2 Saturation ABG Base Excess POC ABG pCO2 ABG Hemoglobin ABG Oxyhemoglobin ABG Chloride ABG Glucose Oxyhemoglobin Sodium Potassium Chloride Carbon Dioxide BUN Creatinine 0.7 L Glucose 155 H POC Glucose 168 H Lactic Acid Calcium Phosphorus Magnesium AST ALT Lactate Dehydrogenase Total Bilirubin Direct Bilirubin CK-MB (CK-2) C-Reactive Protein NT-Pro-B Natriuret Pep Total Protein Albumin Arterial Blood Glucose Urine WBC (Auto) Urine Creatinine 01/18/20 01/18/20 01/18/20 12:05 17:14 23:28 WBC RBC Hgb Hct MCHC RDW MCV MCH Lymph % (Auto) Carter % (Auto) Carter # Eos # Lymph # (Auto) Carter # (Auto) Eos # (Auto) Seg Neutrophils % Seg Neuts % (Manual) Baso # (Auto) Lymphocytes % (Manual) Monocytes % (Manual) Eosinophils % (Manual) Basophils % (Manual) Seg Neutrophils # Seg Neutrophils # Man Lymphocytes # (Manual) Monocytes # (Manual) Eosinophils # (Manual) Nucleated RBC % Basophils # (Manual) PT INR APTT Heparin Anti-Xa Level ABG pH POC ABG pO2 ABG pO2 ABG HCO3 ABG O2 Saturation ABG Base Excess POC ABG pCO2 ABG Hemoglobin ABG Oxyhemoglobin ABG Chloride ABG Glucose Oxyhemoglobin Sodium Potassium Chloride Carbon Dioxide BUN Creatinine Glucose POC Glucose 128 H 126 H 128 H Lactic Acid Calcium Phosphorus Magnesium AST ALT Lactate Dehydrogenase Total Bilirubin Direct Bilirubin CK-MB (CK-2) C-Reactive Protein NT-Pro-B Natriuret Pep Total Protein Albumin Arterial Blood Glucose Urine WBC (Auto) Urine Creatinine 01/19/20 01/19/20 01/19/20 05:39 12:33 17:36 WBC RBC Hgb Hct MCHC RDW MCV MCH Lymph % (Auto) Carter % (Auto) Carter # Eos # Lymph # (Auto) Carter # (Auto) Eos # (Auto) Seg Neutrophils % Seg Neuts % (Manual) Baso # (Auto) Lymphocytes % (Manual) Monocytes % (Manual) Eosinophils % (Manual) Basophils % (Manual) Seg Neutrophils # Seg Neutrophils # Man Lymphocytes # (Manual) Monocytes # (Manual) Eosinophils # (Manual) Nucleated RBC % Basophils # (Manual) PT INR APTT Heparin Anti-Xa Level ABG pH POC ABG pO2 ABG pO2 ABG HCO3 ABG O2 Saturation ABG Base Excess POC ABG pCO2 ABG Hemoglobin ABG Oxyhemoglobin ABG Chloride ABG Glucose Oxyhemoglobin Sodium Potassium Chloride Carbon Dioxide BUN Creatinine Glucose POC Glucose 164 H 171 H 152 H Lactic Acid Calcium Phosphorus Magnesium AST ALT Lactate Dehydrogenase Total Bilirubin Direct Bilirubin CK-MB (CK-2) C-Reactive Protein NT-Pro-B Natriuret Pep Total Protein Albumin Arterial Blood Glucose Urine WBC (Auto) Urine Creatinine 01/20/20 01/20/20 01/20/20 00:12 05:20 05:35 WBC RBC Hgb 9.2 L Hct 29.4 L MCHC 31 L RDW 17.9 H MCV 81 L MCH 25 L Lymph % (Auto) Carter % (Auto) Carter # Eos # Lymph # (Auto) Carter # (Auto) Eos # (Auto) Seg Neutrophils % Seg Neuts % (Manual) Baso # (Auto) Lymphocytes % (Manual) Monocytes % (Manual) Eosinophils % (Manual) Basophils % (Manual) Seg Neutrophils # Seg Neutrophils # Man Lymphocytes # (Manual) Monocytes # (Manual) Eosinophils # (Manual) Nucleated RBC % Basophils # (Manual) PT INR APTT Heparin Anti-Xa Level ABG pH POC ABG pO2 ABG pO2 ABG HCO3 ABG O2 Saturation ABG Base Excess POC ABG pCO2 ABG Hemoglobin ABG Oxyhemoglobin ABG Chloride ABG Glucose Oxyhemoglobin Sodium Potassium Chloride Carbon Dioxide BUN Creatinine Glucose POC Glucose 120 H 136 H Lactic Acid Calcium Phosphorus Magnesium AST ALT Lactate Dehydrogenase Total Bilirubin Direct Bilirubin CK-MB (CK-2) C-Reactive Protein NT-Pro-B Natriuret Pep Total Protein Albumin Arterial Blood Glucose Urine WBC (Auto) Urine Creatinine 10/01/20/20 01/20/20 05:40 11:58 14:55 WBC RBC Hgb 9.0 L Hct 28.3 L MCHC RDW MCV MCH Lymph % (Auto) Carter % (Auto) Carter # Eos # Lymph # (Auto) Carter # (Auto) Eos # (Auto) Seg Neutrophils % Seg Neuts % (Manual) Baso # (Auto) Lymphocytes % (Manual) Monocytes % (Manual) Eosinophils % (Manual) Basophils % (Manual) Seg Neutrophils # Seg Neutrophils # Man Lymphocytes # (Manual) Monocytes # (Manual) Eosinophils # (Manual) Nucleated RBC % Basophils # (Manual) PT INR APTT Heparin Anti-Xa Level ABG pH POC ABG pO2 ABG pO2 ABG HCO3 ABG O2 Saturation ABG Base Excess POC ABG pCO2 ABG Hemoglobin ABG Oxyhemoglobin ABG Chloride ABG Glucose Oxyhemoglobin Sodium Potassium Chloride Carbon Dioxide 32 H BUN 22 H Creatinine 0.7 L Glucose 128 H POC Glucose 152 H Lactic Acid Calcium Phosphorus Magnesium AST ALT Lactate Dehydrogenase Total Bilirubin Direct Bilirubin CK-MB (CK-2) C-Reactive Protein NT-Pro-B Natriuret Pep Total Protein Albumin Arterial Blood Glucose Urine WBC (Auto) Urine Creatinine 01/20/20 01/20/20 01/20/20 14:55 18:14 21:35 WBC RBC Hgb Hct MCHC RDW MCV MCH Lymph % (Auto) Carter % (Auto) Carter # Eos # Lymph # (Auto) Carter # (Auto) Eos # (Auto) Seg Neutrophils % Seg Neuts % (Manual) Baso # (Auto) Lymphocytes % (Manual) Monocytes % (Manual) Eosinophils % (Manual) Basophils % (Manual) Seg Neutrophils # Seg Neutrophils # Man Lymphocytes # (Manual) Monocytes # (Manual) Eosinophils # (Manual) Nucleated RBC % Basophils # (Manual) PT 20.4 H INR 1.72 H APTT 40.6 H Heparin Anti-Xa Level > 2.00 H ABG pH POC ABG pO2 ABG pO2 ABG HCO3 ABG O2 Saturation ABG Base Excess POC ABG pCO2 ABG Hemoglobin ABG Oxyhemoglobin ABG Chloride ABG Glucose Oxyhemoglobin Sodium Potassium Chloride Carbon Dioxide BUN Creatinine Glucose POC Glucose 150 H Lactic Acid Calcium Phosphorus Magnesium AST ALT Lactate Dehydrogenase Total Bilirubin Direct Bilirubin CK-MB (CK-2) C-Reactive Protein NT-Pro-B Natriuret Pep Total Protein Albumin Arterial Blood Glucose Urine WBC (Auto) Urine Creatinine 01/21/20 01/21/20 01/21/20 00:30 05:47 05:59 WBC RBC Hgb Hct MCHC RDW MCV MCH Lymph % (Auto) Carter % (Auto) Carter # Eos # Lymph # (Auto) Carter # (Auto) Eos # (Auto) Seg Neutrophils % Seg Neuts % (Manual) Baso # (Auto) Lymphocytes % (Manual) Monocytes % (Manual) Eosinophils % (Manual) Basophils % (Manual) Seg Neutrophils # Seg Neutrophils # Man Lymphocytes # (Manual) Monocytes # (Manual) Eosinophils # (Manual) Nucleated RBC % Basophils # (Manual) PT INR APTT Heparin Anti-Xa Level 1.93 H ABG pH POC ABG pO2 ABG pO2 ABG HCO3 ABG O2 Saturation ABG Base Excess POC ABG pCO2 ABG Hemoglobin ABG Oxyhemoglobin ABG Chloride ABG Glucose Oxyhemoglobin Sodium Potassium Chloride Carbon Dioxide BUN Creatinine Glucose POC Glucose 126 H 148 H Lactic Acid Calcium Phosphorus Magnesium AST ALT Lactate Dehydrogenase Total Bilirubin Direct Bilirubin CK-MB (CK-2) C-Reactive Protein NT-Pro-B Natriuret Pep Total Protein Albumin Arterial Blood Glucose Urine WBC (Auto) Urine Creatinine 01/21/20 01/21/20 01/21/20 12:32 18:20 23:54 WBC RBC Hgb Hct MCHC RDW MCV MCH Lymph % (Auto) Carter % (Auto) Carter # Eos # Lymph # (Auto) Carter # (Auto) Eos # (Auto) Seg Neutrophils % Seg Neuts % (Manual) Baso # (Auto) Lymphocytes % (Manual) Monocytes % (Manual) Eosinophils % (Manual) Basophils % (Manual) Seg Neutrophils # Seg Neutrophils # Man Lymphocytes # (Manual) Monocytes # (Manual) Eosinophils # (Manual) Nucleated RBC % Basophils # (Manual) PT INR APTT Heparin Anti-Xa Level 1.28 H ABG pH POC ABG pO2 ABG pO2 ABG HCO3 ABG O2 Saturation ABG Base Excess POC ABG pCO2 ABG Hemoglobin ABG Oxyhemoglobin ABG Chloride ABG Glucose Oxyhemoglobin Sodium Potassium Chloride Carbon Dioxide BUN Creatinine Glucose POC Glucose 112 H 146 H Lactic Acid Calcium Phosphorus Magnesium AST ALT Lactate Dehydrogenase Total Bilirubin Direct Bilirubin CK-MB (CK-2) C-Reactive Protein NT-Pro-B Natriuret Pep Total Protein Albumin Arterial Blood Glucose Urine WBC (Auto) Urine Creatinine 01/22/20 01/22/20 01/22/20 04:45 04:45 05:48 WBC RBC Hgb 9.3 L Hct 29.0 L MCHC RDW MCV MCH Lymph % (Auto) Carter % (Auto) Carter # Eos # Lymph # (Auto) Carter # (Auto) Eos # (Auto) Seg Neutrophils % Seg Neuts % (Manual) Baso # (Auto) Lymphocytes % (Manual) Monocytes % (Manual) Eosinophils % (Manual) Basophils % (Manual) Seg Neutrophils # Seg Neutrophils # Man Lymphocytes # (Manual) Monocytes # (Manual) Eosinophils # (Manual) Nucleated RBC % Basophils # (Manual) PT INR APTT Heparin Anti-Xa Level 1.34 H ABG pH POC ABG pO2 ABG pO2 ABG HCO3 ABG O2 Saturation ABG Base Excess POC ABG pCO2 ABG Hemoglobin ABG Oxyhemoglobin ABG Chloride ABG Glucose Oxyhemoglobin Sodium Potassium Chloride Carbon Dioxide BUN Creatinine Glucose POC Glucose 142 H Lactic Acid Calcium Phosphorus Magnesium AST ALT Lactate Dehydrogenase Total Bilirubin Direct Bilirubin CK-MB (CK-2) C-Reactive Protein NT-Pro-B Natriuret Pep Total Protein Albumin Arterial Blood Glucose Urine WBC (Auto) Urine Creatinine 01/22/20 01/22/20 01/22/20 08:09 08:22 09:58 WBC RBC Hgb Hct MCHC RDW MCV MCH Lymph % (Auto) Carter % (Auto) Carter # Eos # Lymph # (Auto) Carter # (Auto) Eos # (Auto) Seg Neutrophils % Seg Neuts % (Manual) Baso # (Auto) Lymphocytes % (Manual) Monocytes % (Manual) Eosinophils % (Manual) Basophils % (Manual) Seg Neutrophils # Seg Neutrophils # Man Lymphocytes # (Manual) Monocytes # (Manual) Eosinophils # (Manual) Nucleated RBC % Basophils # (Manual) PT 16.9 H INR 1.34 H APTT Heparin Anti-Xa Level ABG pH POC ABG pO2 ABG pO2 ABG HCO3 ABG O2 Saturation ABG Base Excess POC ABG pCO2 ABG Hemoglobin ABG Oxyhemoglobin ABG Chloride ABG Glucose Oxyhemoglobin Sodium Potassium Chloride 97.8 L Carbon Dioxide BUN 29 H Creatinine Glucose 128 H POC Glucose 131 H Lactic Acid Calcium Phosphorus Magnesium AST ALT Lactate Dehydrogenase Total Bilirubin Direct Bilirubin CK-MB (CK-2) C-Reactive Protein NT-Pro-B Natriuret Pep Total Protein Albumin Arterial Blood Glucose Urine WBC (Auto) Urine Creatinine 01/22/20 01/22/20 01/22/20 12:44 16:13 18:18 WBC RBC Hgb Hct MCHC RDW MCV MCH Lymph % (Auto) Carter % (Auto) Carter # Eos # Lymph # (Auto) Carter # (Auto) Eos # (Auto) Seg Neutrophils % Seg Neuts % (Manual) Baso # (Auto) Lymphocytes % (Manual) Monocytes % (Manual) Eosinophils % (Manual) Basophils % (Manual) Seg Neutrophils # Seg Neutrophils # Man Lymphocytes # (Manual) Monocytes # (Manual) Eosinophils # (Manual) Nucleated RBC % Basophils # (Manual) PT INR APTT Heparin Anti-Xa Level ABG pH POC ABG pO2 ABG pO2 ABG HCO3 ABG O2 Saturation ABG Base Excess POC ABG pCO2 ABG Hemoglobin ABG Oxyhemoglobin ABG Chloride ABG Glucose Oxyhemoglobin Sodium Potassium Chloride Carbon Dioxide BUN Creatinine Glucose POC Glucose 156 H 133 H 155 H Lactic Acid Calcium Phosphorus Magnesium AST ALT Lactate Dehydrogenase Total Bilirubin Direct Bilirubin CK-MB (CK-2) C-Reactive Protein NT-Pro-B Natriuret Pep Total Protein Albumin Arterial Blood Glucose Urine WBC (Auto) Urine Creatinine 01/22/20 01/23/20 01/23/20 23:22 05:37 12:59 WBC RBC Hgb Hct MCHC RDW MCV MCH Lymph % (Auto) Carter % (Auto) Carter # Eos # Lymph # (Auto) Carter # (Auto) Eos # (Auto) Seg Neutrophils % Seg Neuts % (Manual) Baso # (Auto) Lymphocytes % (Manual) Monocytes % (Manual) Eosinophils % (Manual) Basophils % (Manual) Seg Neutrophils # Seg Neutrophils # Man Lymphocytes # (Manual) Monocytes # (Manual) Eosinophils # (Manual) Nucleated RBC % Basophils # (Manual) PT INR APTT Heparin Anti-Xa Level ABG pH POC ABG pO2 ABG pO2 ABG HCO3 ABG O2 Saturation ABG Base Excess POC ABG pCO2 ABG Hemoglobin ABG Oxyhemoglobin ABG Chloride ABG Glucose Oxyhemoglobin Sodium Potassium Chloride Carbon Dioxide BUN Creatinine Glucose POC Glucose 148 H 163 H 175 H Lactic Acid Calcium Phosphorus Magnesium AST ALT Lactate Dehydrogenase Total Bilirubin Direct Bilirubin CK-MB (CK-2) C-Reactive Protein NT-Pro-B Natriuret Pep Total Protein Albumin Arterial Blood Glucose Urine WBC (Auto) Urine Creatinine 01/23/20 01/23/20 01/24/20 17:28 23:56 04:30 WBC RBC 3.46 L Hgb 8.8 L Hct 27.8 L MCHC RDW 18.2 H MCV 81 L MCH 25 L Lymph % (Auto) Carter % (Auto) 7.8 H Carter # Eos # Lymph # (Auto) Carter # (Auto) Eos # (Auto) Seg Neutrophils % Seg Neuts % (Manual) Baso # (Auto) Lymphocytes % (Manual) Monocytes % (Manual) Eosinophils % (Manual) Basophils % (Manual) Seg Neutrophils # Seg Neutrophils # Man Lymphocytes # (Manual) Monocytes # (Manual) Eosinophils # (Manual) Nucleated RBC % Basophils # (Manual) PT INR APTT Heparin Anti-Xa Level ABG pH POC ABG pO2 ABG pO2 ABG HCO3 ABG O2 Saturation ABG Base Excess POC ABG pCO2 ABG Hemoglobin ABG Oxyhemoglobin ABG Chloride ABG Glucose Oxyhemoglobin Sodium Potassium Chloride Carbon Dioxide BUN Creatinine Glucose POC Glucose 165 H 177 H Lactic Acid Calcium Phosphorus Magnesium AST ALT Lactate Dehydrogenase Total Bilirubin Direct Bilirubin CK-MB (CK-2) C-Reactive Protein NT-Pro-B Natriuret Pep Total Protein Albumin Arterial Blood Glucose Urine WBC (Auto) Urine Creatinine 01/24/20 01/24/20 01/24/20 04:30 07:18 12:06 WBC RBC Hgb Hct MCHC RDW MCV MCH Lymph % (Auto) Carter % (Auto) Carter # Eos # Lymph # (Auto) Carter # (Auto) Eos # (Auto) Seg Neutrophils % Seg Neuts % (Manual) Baso # (Auto) Lymphocytes % (Manual) Monocytes % (Manual) Eosinophils % (Manual) Basophils % (Manual) Seg Neutrophils # Seg Neutrophils # Man Lymphocytes # (Manual) Monocytes # (Manual) Eosinophils # (Manual) Nucleated RBC % Basophils # (Manual) PT INR APTT Heparin Anti-Xa Level ABG pH POC ABG pO2 ABG pO2 ABG HCO3 ABG O2 Saturation ABG Base Excess POC ABG pCO2 ABG Hemoglobin ABG Oxyhemoglobin ABG Chloride ABG Glucose Oxyhemoglobin Sodium Potassium Chloride 97.9 L Carbon Dioxide BUN 31 H Creatinine Glucose 146 H POC Glucose 151 H 133 H Lactic Acid Calcium Phosphorus Magnesium AST ALT Lactate Dehydrogenase Total Bilirubin Direct Bilirubin CK-MB (CK-2) C-Reactive Protein NT-Pro-B Natriuret Pep Total Protein Albumin Arterial Blood Glucose Urine WBC (Auto) Urine Creatinine 01/24/20 01/25/20 01/25/20 17:36 00:08 04:25 WBC RBC 3.50 L Hgb 8.7 L Hct 27.9 L MCHC 31 L RDW 18.2 H MCV 80 L MCH 25 L Lymph % (Auto) Carter % (Auto) 8.5 H Carter # Eos # Lymph # (Auto) Carter # (Auto) Eos # (Auto) Seg Neutrophils % Seg Neuts % (Manual) Baso # (Auto) Lymphocytes % (Manual) Monocytes % (Manual) Eosinophils % (Manual) Basophils % (Manual) Seg Neutrophils # Seg Neutrophils # Man Lymphocytes # (Manual) Monocytes # (Manual) Eosinophils # (Manual) Nucleated RBC % Basophils # (Manual) PT INR APTT Heparin Anti-Xa Level ABG pH POC ABG pO2 ABG pO2 ABG HCO3 ABG O2 Saturation ABG Base Excess POC ABG pCO2 ABG Hemoglobin ABG Oxyhemoglobin ABG Chloride ABG Glucose Oxyhemoglobin Sodium Potassium Chloride Carbon Dioxide BUN Creatinine Glucose POC Glucose 133 H 129 H Lactic Acid Calcium Phosphorus Magnesium AST ALT Lactate Dehydrogenase Total Bilirubin Direct Bilirubin CK-MB (CK-2) C-Reactive Protein NT-Pro-B Natriuret Pep Total Protein Albumin Arterial Blood Glucose Urine WBC (Auto) Urine Creatinine 01/25/20 01/25/20 01/25/20 04:25 05:38 11:52 WBC RBC Hgb Hct MCHC RDW MCV MCH Lymph % (Auto) Carter % (Auto) Carter # Eos # Lymph # (Auto) Carter # (Auto) Eos # (Auto) Seg Neutrophils % Seg Neuts % (Manual) Baso # (Auto) Lymphocytes % (Manual) Monocytes % (Manual) Eosinophils % (Manual) Basophils % (Manual) Seg Neutrophils # Seg Neutrophils # Man Lymphocytes # (Manual) Monocytes # (Manual) Eosinophils # (Manual) Nucleated RBC % Basophils # (Manual) PT INR APTT Heparin Anti-Xa Level ABG pH POC ABG pO2 ABG pO2 ABG HCO3 ABG O2 Saturation ABG Base Excess POC ABG pCO2 ABG Hemoglobin ABG Oxyhemoglobin ABG Chloride ABG Glucose Oxyhemoglobin Sodium Potassium Chloride Carbon Dioxide BUN 30 H Creatinine Glucose 134 H POC Glucose 129 H 134 H Lactic Acid Calcium Phosphorus Magnesium AST ALT Lactate Dehydrogenase Total Bilirubin Direct Bilirubin CK-MB (CK-2) C-Reactive Protein NT-Pro-B Natriuret Pep Total Protein Albumin Arterial Blood Glucose Urine WBC (Auto) Urine Creatinine 01/25/20 01/25/20 01/26/20 17:13 21:02 00:59 WBC RBC Hgb Hct MCHC RDW MCV MCH Lymph % (Auto) Carter % (Auto) Carter # Eos # Lymph # (Auto) Carter # (Auto) Eos # (Auto) Seg Neutrophils % Seg Neuts % (Manual) Baso # (Auto) Lymphocytes % (Manual) Monocytes % (Manual) Eosinophils % (Manual) Basophils % (Manual) Seg Neutrophils # Seg Neutrophils # Man Lymphocytes # (Manual) Monocytes # (Manual) Eosinophils # (Manual) Nucleated RBC % Basophils # (Manual) PT INR APTT Heparin Anti-Xa Level ABG pH POC ABG pO2 ABG pO2 57.5 L ABG HCO3 31.7 H ABG O2 Saturation 90.3 L ABG Base Excess 6.6 H POC ABG pCO2 ABG Hemoglobin 13.0 L ABG Oxyhemoglobin ABG Chloride ABG Glucose Oxyhemoglobin 87.5 L Sodium Potassium Chloride Carbon Dioxide BUN Creatinine Glucose POC Glucose 124 H 196 H Lactic Acid Calcium Phosphorus Magnesium AST ALT Lactate Dehydrogenase Total Bilirubin Direct Bilirubin CK-MB (CK-2) C-Reactive Protein NT-Pro-B Natriuret Pep Total Protein Albumin Arterial Blood Glucose Urine WBC (Auto) Urine Creatinine 01/26/20 01/26/20 01/26/20 03:20 05:46 12:46 WBC RBC Hgb 9.2 L Hct 29.4 L MCHC RDW MCV MCH Lymph % (Auto) Carter % (Auto) Carter # Eos # Lymph # (Auto) Carter # (Auto) Eos # (Auto) Seg Neutrophils % Seg Neuts % (Manual) Baso # (Auto) Lymphocytes % (Manual) Monocytes % (Manual) Eosinophils % (Manual) Basophils % (Manual) Seg Neutrophils # Seg Neutrophils # Man Lymphocytes # (Manual) Monocytes # (Manual) Eosinophils # (Manual) Nucleated RBC % Basophils # (Manual) PT INR APTT Heparin Anti-Xa Level ABG pH POC ABG pO2 ABG pO2 ABG HCO3 ABG O2 Saturation ABG Base Excess POC ABG pCO2 ABG Hemoglobin ABG Oxyhemoglobin ABG Chloride ABG Glucose Oxyhemoglobin Sodium Potassium Chloride Carbon Dioxide BUN Creatinine Glucose POC Glucose 141 H 122 H Lactic Acid Calcium Phosphorus Magnesium AST ALT Lactate Dehydrogenase Total Bilirubin Direct Bilirubin CK-MB (CK-2) C-Reactive Protein NT-Pro-B Natriuret Pep Total Protein Albumin Arterial Blood Glucose Urine WBC (Auto) Urine Creatinine 01/26/20 01/26/20 01/27/20 18:03 23:55 04:47 WBC RBC Hgb Hct MCHC RDW MCV MCH Lymph % (Auto) Carter % (Auto) Carter # Eos # Lymph # (Auto) Carter # (Auto) Eos # (Auto) Seg Neutrophils % Seg Neuts % (Manual) Baso # (Auto) Lymphocytes % (Manual) Monocytes % (Manual) Eosinophils % (Manual) Basophils % (Manual) Seg Neutrophils # Seg Neutrophils # Man Lymphocytes # (Manual) Monocytes # (Manual) Eosinophils # (Manual) Nucleated RBC % Basophils # (Manual) PT INR APTT Heparin Anti-Xa Level ABG pH POC ABG pO2 ABG pO2 ABG HCO3 ABG O2 Saturation ABG Base Excess POC ABG pCO2 ABG Hemoglobin ABG Oxyhemoglobin ABG Chloride ABG Glucose Oxyhemoglobin Sodium Potassium Chloride Carbon Dioxide BUN 30 H Creatinine 0.7 L Glucose 135 H POC Glucose 142 H 159 H Lactic Acid Calcium Phosphorus Magnesium AST ALT Lactate Dehydrogenase Total Bilirubin Direct Bilirubin CK-MB (CK-2) C-Reactive Protein NT-Pro-B Natriuret Pep Total Protein Albumin Arterial Blood Glucose Urine WBC (Auto) Urine Creatinine 01/27/20 01/27/20 01/27/20 05:43 12:06 17:16 WBC RBC Hgb Hct MCHC RDW MCV MCH Lymph % (Auto) Carter % (Auto) Carter # Eos # Lymph # (Auto) Carter # (Auto) Eos # (Auto) Seg Neutrophils % Seg Neuts % (Manual) Baso # (Auto) Lymphocytes % (Manual) Monocytes % (Manual) Eosinophils % (Manual) Basophils % (Manual) Seg Neutrophils # Seg Neutrophils # Man Lymphocytes # (Manual) Monocytes # (Manual) Eosinophils # (Manual) Nucleated RBC % Basophils # (Manual) PT INR APTT Heparin Anti-Xa Level ABG pH POC ABG pO2 ABG pO2 ABG HCO3 ABG O2 Saturation ABG Base Excess POC ABG pCO2 ABG Hemoglobin ABG Oxyhemoglobin ABG Chloride ABG Glucose Oxyhemoglobin Sodium Potassium Chloride Carbon Dioxide BUN Creatinine Glucose POC Glucose 143 H 142 H 128 H Lactic Acid Calcium Phosphorus Magnesium AST ALT Lactate Dehydrogenase Total Bilirubin Direct Bilirubin CK-MB (CK-2) C-Reactive Protein NT-Pro-B Natriuret Pep Total Protein Albumin Arterial Blood Glucose Urine WBC (Auto) Urine Creatinine 01/27/20 01/28/20 01/28/20 23:55 04:37 05:55 WBC RBC Hgb 9.4 L Hct 29.9 L MCHC RDW MCV MCH Lymph % (Auto) Carter % (Auto) Carter # Eos # Lymph # (Auto) Carter # (Auto) Eos # (Auto) Seg Neutrophils % Seg Neuts % (Manual) Baso # (Auto) Lymphocytes % (Manual) Monocytes % (Manual) Eosinophils % (Manual) Basophils % (Manual) Seg Neutrophils # Seg Neutrophils # Man Lymphocytes # (Manual) Monocytes # (Manual) Eosinophils # (Manual) Nucleated RBC % Basophils # (Manual) PT INR APTT Heparin Anti-Xa Level ABG pH POC ABG pO2 ABG pO2 ABG HCO3 ABG O2 Saturation ABG Base Excess POC ABG pCO2 ABG Hemoglobin ABG Oxyhemoglobin ABG Chloride ABG Glucose Oxyhemoglobin Sodium Potassium Chloride Carbon Dioxide BUN Creatinine Glucose POC Glucose 166 H 169 H Lactic Acid Calcium Phosphorus Magnesium AST ALT Lactate Dehydrogenase Total Bilirubin Direct Bilirubin CK-MB (CK-2) C-Reactive Protein NT-Pro-B Natriuret Pep Total Protein Albumin Arterial Blood Glucose Urine WBC (Auto) Urine Creatinine 01/28/20 01/28/20 01/28/20 11:58 17:26 23:46 WBC RBC Hgb Hct MCHC RDW MCV MCH Lymph % (Auto) Carter % (Auto) Carter # Eos # Lymph # (Auto) Carter # (Auto) Eos # (Auto) Seg Neutrophils % Seg Neuts % (Manual) Baso # (Auto) Lymphocytes % (Manual) Monocytes % (Manual) Eosinophils % (Manual) Basophils % (Manual) Seg Neutrophils # Seg Neutrophils # Man Lymphocytes # (Manual) Monocytes # (Manual) Eosinophils # (Manual) Nucleated RBC % Basophils # (Manual) PT INR APTT Heparin Anti-Xa Level ABG pH POC ABG pO2 ABG pO2 ABG HCO3 ABG O2 Saturation ABG Base Excess POC ABG pCO2 ABG Hemoglobin ABG Oxyhemoglobin ABG Chloride ABG Glucose Oxyhemoglobin Sodium Potassium Chloride Carbon Dioxide BUN Creatinine Glucose POC Glucose 130 H 126 H 150 H Lactic Acid Calcium Phosphorus Magnesium AST ALT Lactate Dehydrogenase Total Bilirubin Direct Bilirubin CK-MB (CK-2) C-Reactive Protein NT-Pro-B Natriuret Pep Total Protein Albumin Arterial Blood Glucose Urine WBC (Auto) Urine Creatinine 01/29/20 01/29/20 01/29/20 04:55 06:00 12:28 WBC RBC Hgb Hct MCHC RDW MCV MCH Lymph % (Auto) Carter % (Auto) Carter # Eos # Lymph # (Auto) Carter # (Auto) Eos # (Auto) Seg Neutrophils % Seg Neuts % (Manual) Baso # (Auto) Lymphocytes % (Manual) Monocytes % (Manual) Eosinophils % (Manual) Basophils % (Manual) Seg Neutrophils # Seg Neutrophils # Man Lymphocytes # (Manual) Monocytes # (Manual) Eosinophils # (Manual) Nucleated RBC % Basophils # (Manual) PT INR APTT Heparin Anti-Xa Level ABG pH POC ABG pO2 ABG pO2 ABG HCO3 ABG O2 Saturation ABG Base Excess POC ABG pCO2 ABG Hemoglobin ABG Oxyhemoglobin ABG Chloride ABG Glucose Oxyhemoglobin Sodium Potassium Chloride Carbon Dioxide 34 H BUN Creatinine 0.6 L Glucose 152 H POC Glucose 157 H 156 H Lactic Acid Calcium Phosphorus Magnesium AST ALT Lactate Dehydrogenase Total Bilirubin Direct Bilirubin CK-MB (CK-2) C-Reactive Protein NT-Pro-B Natriuret Pep Total Protein Albumin Arterial Blood Glucose Urine WBC (Auto) Urine Creatinine 01/29/20 01/30/20 01/30/20 19:06 00:29 05:39 WBC RBC Hgb Hct MCHC RDW MCV MCH Lymph % (Auto) Carter % (Auto) Carter # Eos # Lymph # (Auto) Carter # (Auto) Eos # (Auto) Seg Neutrophils % Seg Neuts % (Manual) Baso # (Auto) Lymphocytes % (Manual) Monocytes % (Manual) Eosinophils % (Manual) Basophils % (Manual) Seg Neutrophils # Seg Neutrophils # Man Lymphocytes # (Manual) Monocytes # (Manual) Eosinophils # (Manual) Nucleated RBC % Basophils # (Manual) PT INR APTT Heparin Anti-Xa Level ABG pH POC ABG pO2 ABG pO2 ABG HCO3 ABG O2 Saturation ABG Base Excess POC ABG pCO2 ABG Hemoglobin ABG Oxyhemoglobin ABG Chloride ABG Glucose Oxyhemoglobin Sodium Potassium Chloride Carbon Dioxide BUN Creatinine Glucose POC Glucose 152 H 132 H 159 H Lactic Acid Calcium Phosphorus Magnesium AST ALT Lactate Dehydrogenase Total Bilirubin Direct Bilirubin CK-MB (CK-2) C-Reactive Protein NT-Pro-B Natriuret Pep Total Protein Albumin Arterial Blood Glucose Urine WBC (Auto) Urine Creatinine 01/30/20 01/30/20 01/30/20 12:27 17:42 23:28 WBC RBC Hgb Hct MCHC RDW MCV MCH Lymph % (Auto) Carter % (Auto) Carter # Eos # Lymph # (Auto) Carter # (Auto) Eos # (Auto) Seg Neutrophils % Seg Neuts % (Manual) Baso # (Auto) Lymphocytes % (Manual) Monocytes % (Manual) Eosinophils % (Manual) Basophils % (Manual) Seg Neutrophils # Seg Neutrophils # Man Lymphocytes # (Manual) Monocytes # (Manual) Eosinophils # (Manual) Nucleated RBC % Basophils # (Manual) PT INR APTT Heparin Anti-Xa Level ABG pH POC ABG pO2 ABG pO2 ABG HCO3 ABG O2 Saturation ABG Base Excess POC ABG pCO2 ABG Hemoglobin ABG Oxyhemoglobin ABG Chloride ABG Glucose Oxyhemoglobin Sodium Potassium Chloride Carbon Dioxide BUN Creatinine Glucose POC Glucose 151 H 144 H 164 H Lactic Acid Calcium Phosphorus Magnesium AST ALT Lactate Dehydrogenase Total Bilirubin Direct Bilirubin CK-MB (CK-2) C-Reactive Protein NT-Pro-B Natriuret Pep Total Protein Albumin Arterial Blood Glucose Urine WBC (Auto) Urine Creatinine 01/31/20 01/31/20 01/31/20 05:51 11:51 18:06 WBC RBC Hgb Hct MCHC RDW MCV MCH Lymph % (Auto) Carter % (Auto) Carter # Eos # Lymph # (Auto) Carter # (Auto) Eos # (Auto) Seg Neutrophils % Seg Neuts % (Manual) Baso # (Auto) Lymphocytes % (Manual) Monocytes % (Manual) Eosinophils % (Manual) Basophils % (Manual) Seg Neutrophils # Seg Neutrophils # Man Lymphocytes # (Manual) Monocytes # (Manual) Eosinophils # (Manual) Nucleated RBC % Basophils # (Manual) PT INR APTT Heparin Anti-Xa Level ABG pH POC ABG pO2 ABG pO2 ABG HCO3 ABG O2 Saturation ABG Base Excess POC ABG pCO2 ABG Hemoglobin ABG Oxyhemoglobin ABG Chloride ABG Glucose Oxyhemoglobin Sodium Potassium Chloride Carbon Dioxide BUN Creatinine Glucose POC Glucose 131 H 167 H 210 H Lactic Acid Calcium Phosphorus Magnesium AST ALT Lactate Dehydrogenase Total Bilirubin Direct Bilirubin CK-MB (CK-2) C-Reactive Protein NT-Pro-B Natriuret Pep Total Protein Albumin Arterial Blood Glucose Urine WBC (Auto) Urine Creatinine 01/31/20 01/31/20 02/01/20 19:24 Unknown 00:34 WBC RBC Hgb Hct MCHC RDW MCV MCH Lymph % (Auto) Carter % (Auto) Carter # Eos # Lymph # (Auto) Carter # (Auto) Eos # (Auto) Seg Neutrophils % Seg Neuts % (Manual) Baso # (Auto) Lymphocytes % (Manual) Monocytes % (Manual) Eosinophils % (Manual) Basophils % (Manual) Seg Neutrophils # Seg Neutrophils # Man Lymphocytes # (Manual) Monocytes # (Manual) Eosinophils # (Manual) Nucleated RBC % Basophils # (Manual) PT INR APTT Heparin Anti-Xa Level ABG pH POC ABG pO2 ABG pO2 ABG HCO3 ABG O2 Saturation ABG Base Excess POC ABG pCO2 ABG Hemoglobin ABG Oxyhemoglobin ABG Chloride ABG Glucose Oxyhemoglobin Sodium Potassium Chloride 95.3 L Carbon Dioxide 33 H BUN 36 H Creatinine Glucose 187 H POC Glucose 116 H Lactic Acid Calcium Phosphorus Magnesium AST ALT Lactate Dehydrogenase Total Bilirubin Direct Bilirubin CK-MB (CK-2) C-Reactive Protein NT-Pro-B Natriuret Pep Total Protein Albumin Arterial Blood Glucose Urine WBC (Auto) Urine Creatinine 57.4 H 02/01/20 02/01/20 02/01/20 05:24 10:40 12:29 WBC RBC Hgb Hct MCHC RDW MCV MCH Lymph % (Auto) Carter % (Auto) Carter # Eos # Lymph # (Auto) Carter # (Auto) Eos # (Auto) Seg Neutrophils % Seg Neuts % (Manual) Baso # (Auto) Lymphocytes % (Manual) Monocytes % (Manual) Eosinophils % (Manual) Basophils % (Manual) Seg Neutrophils # Seg Neutrophils # Man Lymphocytes # (Manual) Monocytes # (Manual) Eosinophils # (Manual) Nucleated RBC % Basophils # (Manual) PT INR APTT Heparin Anti-Xa Level ABG pH POC ABG pO2 ABG pO2 ABG HCO3 ABG O2 Saturation ABG Base Excess POC ABG pCO2 ABG Hemoglobin ABG Oxyhemoglobin ABG Chloride ABG Glucose Oxyhemoglobin Sodium Potassium Chloride Carbon Dioxide BUN Creatinine Glucose POC Glucose 142 H 165 H 151 H Lactic Acid Calcium Phosphorus Magnesium AST ALT Lactate Dehydrogenase Total Bilirubin Direct Bilirubin CK-MB (CK-2) C-Reactive Protein NT-Pro-B Natriuret Pep Total Protein Albumin Arterial Blood Glucose Urine WBC (Auto) Urine Creatinine 02/01/20 02/01/20 02/02/20 17:16 23:23 06:36 WBC RBC Hgb Hct MCHC RDW MCV MCH Lymph % (Auto) Carter % (Auto) Carter # Eos # Lymph # (Auto) Carter # (Auto) Eos # (Auto) Seg Neutrophils % Seg Neuts % (Manual) Baso # (Auto) Lymphocytes % (Manual) Monocytes % (Manual) Eosinophils % (Manual) Basophils % (Manual) Seg Neutrophils # Seg Neutrophils # Man Lymphocytes # (Manual) Monocytes # (Manual) Eosinophils # (Manual) Nucleated RBC % Basophils # (Manual) PT INR APTT Heparin Anti-Xa Level ABG pH POC ABG pO2 ABG pO2 ABG HCO3 ABG O2 Saturation ABG Base Excess POC ABG pCO2 ABG Hemoglobin ABG Oxyhemoglobin ABG Chloride ABG Glucose Oxyhemoglobin Sodium Potassium Chloride Carbon Dioxide BUN Creatinine Glucose POC Glucose 137 H 145 H 181 H Lactic Acid Calcium Phosphorus Magnesium AST ALT Lactate Dehydrogenase Total Bilirubin Direct Bilirubin CK-MB (CK-2) C-Reactive Protein NT-Pro-B Natriuret Pep Total Protein Albumin Arterial Blood Glucose Urine WBC (Auto) Urine Creatinine 02/02/20 02/02/20 02/02/20 10:01 12:05 17:54 WBC RBC Hgb Hct MCHC RDW MCV MCH Lymph % (Auto) Carter % (Auto) Carter # Eos # Lymph # (Auto) Carter # (Auto) Eos # (Auto) Seg Neutrophils % Seg Neuts % (Manual) Baso # (Auto) Lymphocytes % (Manual) Monocytes % (Manual) Eosinophils % (Manual) Basophils % (Manual) Seg Neutrophils # Seg Neutrophils # Man Lymphocytes # (Manual) Monocytes # (Manual) Eosinophils # (Manual) Nucleated RBC % Basophils # (Manual) PT INR APTT Heparin Anti-Xa Level ABG pH POC ABG pO2 ABG pO2 ABG HCO3 ABG O2 Saturation ABG Base Excess POC ABG pCO2 ABG Hemoglobin ABG Oxyhemoglobin ABG Chloride ABG Glucose Oxyhemoglobin Sodium Potassium Chloride 95.3 L Carbon Dioxide BUN 44 H Creatinine Glucose 234 H POC Glucose 184 H 127 H Lactic Acid Calcium Phosphorus Magnesium AST 363 H ALT 457 H Lactate Dehydrogenase Total Bilirubin Direct Bilirubin CK-MB (CK-2) C-Reactive Protein NT-Pro-B Natriuret Pep Total Protein Albumin 3.0 L Arterial Blood Glucose Urine WBC (Auto) Urine Creatinine 02/02/20 02/03/20 02/03/20 23:47 05:32 07:04 WBC 13.0 H RBC Hgb 9.5 L Hct 30.8 L MCHC 31 L RDW 19.6 H MCV 81 L MCH 25 L Lymph % (Auto) Carter % (Auto) 9.4 H Carter # Eos # Lymph # (Auto) Carter # (Auto) 1.2 H Eos # (Auto) Seg Neutrophils % 72.3 H Seg Neuts % (Manual) Baso # (Auto) Lymphocytes % (Manual) Monocytes % (Manual) Eosinophils % (Manual) Basophils % (Manual) Seg Neutrophils # 9.4 H Seg Neutrophils # Man Lymphocytes # (Manual) Monocytes # (Manual) Eosinophils # (Manual) Nucleated RBC % Basophils # (Manual) PT INR APTT Heparin Anti-Xa Level ABG pH POC ABG pO2 ABG pO2 ABG HCO3 ABG O2 Saturation ABG Base Excess POC ABG pCO2 ABG Hemoglobin ABG Oxyhemoglobin ABG Chloride ABG Glucose Oxyhemoglobin Sodium Potassium Chloride Carbon Dioxide BUN Creatinine Glucose POC Glucose 124 H 129 H Lactic Acid Calcium Phosphorus Magnesium AST ALT Lactate Dehydrogenase Total Bilirubin Direct Bilirubin CK-MB (CK-2) C-Reactive Protein NT-Pro-B Natriuret Pep Total Protein Albumin Arterial Blood Glucose Urine WBC (Auto) Urine Creatinine 02/03/20 02/03/20 02/03/20 07:04 11:32 12:49 WBC RBC Hgb Hct MCHC RDW MCV MCH Lymph % (Auto) Carter % (Auto) Carter # Eos # Lymph # (Auto) Carter # (Auto) Eos # (Auto) Seg Neutrophils % Seg Neuts % (Manual) Baso # (Auto) Lymphocytes % (Manual) Monocytes % (Manual) Eosinophils % (Manual) Basophils % (Manual) Seg Neutrophils # Seg Neutrophils # Man Lymphocytes # (Manual) Monocytes # (Manual) Eosinophils # (Manual) Nucleated RBC % Basophils # (Manual) PT INR APTT Heparin Anti-Xa Level ABG pH POC ABG pO2 ABG pO2 ABG HCO3 ABG O2 Saturation ABG Base Excess POC ABG pCO2 ABG Hemoglobin ABG Oxyhemoglobin ABG Chloride ABG Glucose Oxyhemoglobin Sodium Potassium Chloride 97.9 L Carbon Dioxide 33 H BUN 39 H Creatinine Glucose 119 H POC Glucose 138 H Lactic Acid Calcium Phosphorus Magnesium 2.60 H AST ALT Lactate Dehydrogenase Total Bilirubin Direct Bilirubin CK-MB (CK-2) C-Reactive Protein NT-Pro-B Natriuret Pep Total Protein Albumin Arterial Blood Glucose Urine WBC (Auto) Urine Creatinine 02/03/20 02/04/20 02/04/20 18:28 16:24 16:24 WBC RBC 3.38 L Hgb 8.6 L Hct 26.9 L MCHC RDW 19.5 H MCV 80 L MCH 26 L Lymph % (Auto) Carter % (Auto) Carter # Eos # Lymph # (Auto) Carter # (Auto) Eos # (Auto) Seg Neutrophils % Seg Neuts % (Manual) Baso # (Auto) Lymphocytes % (Manual) Monocytes % (Manual) Eosinophils % (Manual) Basophils % (Manual) Seg Neutrophils # Seg Neutrophils # Man Lymphocytes # (Manual) Monocytes # (Manual) Eosinophils # (Manual) Nucleated RBC % Basophils # (Manual) PT INR APTT Heparin Anti-Xa Level ABG pH POC ABG pO2 ABG pO2 ABG HCO3 ABG O2 Saturation ABG Base Excess POC ABG pCO2 ABG Hemoglobin ABG Oxyhemoglobin ABG Chloride ABG Glucose Oxyhemoglobin Sodium Potassium 3.4 L Chloride Carbon Dioxide 31 H BUN 37 H Creatinine Glucose 70 L POC Glucose 118 H Lactic Acid Calcium Phosphorus Magnesium AST 169 H ALT 394 H Lactate Dehydrogenase Total Bilirubin 1.50 H Direct Bilirubin CK-MB (CK-2) C-Reactive Protein NT-Pro-B Natriuret Pep Total Protein Albumin 2.9 L Arterial Blood Glucose Urine WBC (Auto) Urine Creatinine 02/05/20 02/05/20 02/05/20 00:41 06:37 17:14 WBC RBC Hgb Hct MCHC RDW MCV MCH Lymph % (Auto) Carter % (Auto) Carter # Eos # Lymph # (Auto) Carter # (Auto) Eos # (Auto) Seg Neutrophils % Seg Neuts % (Manual) Baso # (Auto) Lymphocytes % (Manual) Monocytes % (Manual) Eosinophils % (Manual) Basophils % (Manual) Seg Neutrophils # Seg Neutrophils # Man Lymphocytes # (Manual) Monocytes # (Manual) Eosinophils # (Manual) Nucleated RBC % Basophils # (Manual) PT INR APTT Heparin Anti-Xa Level ABG pH POC ABG pO2 ABG pO2 ABG HCO3 ABG O2 Saturation ABG Base Excess POC ABG pCO2 ABG Hemoglobin ABG Oxyhemoglobin ABG Chloride ABG Glucose Oxyhemoglobin Sodium Potassium 3.1 L Chloride Carbon Dioxide 35 H BUN 32 H Creatinine 0.7 L Glucose POC Glucose 69 L 127 H Lactic Acid Calcium Phosphorus Magnesium AST 134 H ALT 352 H Lactate Dehydrogenase Total Bilirubin 1.60 H Direct Bilirubin CK-MB (CK-2) C-Reactive Protein NT-Pro-B Natriuret Pep Total Protein Albumin 2.9 L Arterial Blood Glucose Urine WBC (Auto) Urine Creatinine 02/05/20 02/06/20 02/06/20 23:43 05:32 08:01 WBC RBC Hgb Hct MCHC RDW MCV MCH Lymph % (Auto) Carter % (Auto) Carter # Eos # Lymph # (Auto) Carter # (Auto) Eos # (Auto) Seg Neutrophils % Seg Neuts % (Manual) Baso # (Auto) Lymphocytes % (Manual) Monocytes % (Manual) Eosinophils % (Manual) Basophils % (Manual) Seg Neutrophils # Seg Neutrophils # Man Lymphocytes # (Manual) Monocytes # (Manual) Eosinophils # (Manual) Nucleated RBC % Basophils # (Manual) PT INR APTT Heparin Anti-Xa Level ABG pH POC ABG pO2 ABG pO2 ABG HCO3 ABG O2 Saturation ABG Base Excess POC ABG pCO2 ABG Hemoglobin ABG Oxyhemoglobin ABG Chloride ABG Glucose Oxyhemoglobin Sodium Potassium Chloride Carbon Dioxide BUN 40 H Creatinine Glucose 132 H POC Glucose 129 H 131 H Lactic Acid Calcium Phosphorus Magnesium AST ALT Lactate Dehydrogenase Total Bilirubin Direct Bilirubin CK-MB (CK-2) C-Reactive Protein NT-Pro-B Natriuret Pep Total Protein Albumin Arterial Blood Glucose Urine WBC (Auto) Urine Creatinine 02/06/20 02/06/20 02/06/20 11:51 16:28 17:32 WBC RBC Hgb Hct MCHC RDW MCV MCH Lymph % (Auto) Carter % (Auto) Carter # Eos # Lymph # (Auto) Carter # (Auto) Eos # (Auto) Seg Neutrophils % Seg Neuts % (Manual) Baso # (Auto) Lymphocytes % (Manual) Monocytes % (Manual) Eosinophils % (Manual) Basophils % (Manual) Seg Neutrophils # Seg Neutrophils # Man Lymphocytes # (Manual) Monocytes # (Manual) Eosinophils # (Manual) Nucleated RBC % Basophils # (Manual) PT INR APTT Heparin Anti-Xa Level ABG pH POC ABG pO2 ABG pO2 ABG HCO3 ABG O2 Saturation ABG Base Excess POC ABG pCO2 ABG Hemoglobin ABG Oxyhemoglobin ABG Chloride ABG Glucose Oxyhemoglobin Sodium Potassium Chloride Carbon Dioxide BUN Creatinine Glucose POC Glucose 167 H 129 H Lactic Acid Calcium Phosphorus Magnesium AST 824 H ALT 948 H Lactate Dehydrogenase Total Bilirubin 1.70 H Direct Bilirubin 1.2 H CK-MB (CK-2) C-Reactive Protein NT-Pro-B Natriuret Pep Total Protein Albumin 2.9 L Arterial Blood Glucose Urine WBC (Auto) Urine Creatinine 02/07/20 02/07/20 02/07/20 00:11 04:57 04:57 WBC RBC Hgb 9.2 L Hct 29.7 L MCHC 31 L RDW 20.2 H MCV 80 L MCH 25 L Lymph % (Auto) Carter % (Auto) Carter # Eos # Lymph # (Auto) Carter # (Auto) Eos # (Auto) Seg Neutrophils % Seg Neuts % (Manual) Baso # (Auto) Lymphocytes % (Manual) Monocytes % (Manual) Eosinophils % (Manual) Basophils % (Manual) Seg Neutrophils # Seg Neutrophils # Man Lymphocytes # (Manual) Monocytes # (Manual) Eosinophils # (Manual) Nucleated RBC % Basophils # (Manual) PT INR APTT Heparin Anti-Xa Level ABG pH POC ABG pO2 ABG pO2 ABG HCO3 ABG O2 Saturation ABG Base Excess POC ABG pCO2 ABG Hemoglobin ABG Oxyhemoglobin ABG Chloride ABG Glucose Oxyhemoglobin Sodium Potassium 3.4 L D Chloride Carbon Dioxide 32 H BUN 39 H Creatinine Glucose 106 H POC Glucose 121 H Lactic Acid Calcium Phosphorus Magnesium AST ALT Lactate Dehydrogenase Total Bilirubin Direct Bilirubin CK-MB (CK-2) C-Reactive Protein NT-Pro-B Natriuret Pep Total Protein Albumin Arterial Blood Glucose Urine WBC (Auto) Urine Creatinine 02/07/20 02/07/20 02/07/20 15:03 15:03 17:11 WBC RBC Hgb Hct MCHC RDW MCV MCH Lymph % (Auto) Carter % (Auto) Carter # Eos # Lymph # (Auto) Carter # (Auto) Eos # (Auto) Seg Neutrophils % Seg Neuts % (Manual) Baso # (Auto) Lymphocytes % (Manual) Monocytes % (Manual) Eosinophils % (Manual) Basophils % (Manual) Seg Neutrophils # Seg Neutrophils # Man Lymphocytes # (Manual) Monocytes # (Manual) Eosinophils # (Manual) Nucleated RBC % Basophils # (Manual) PT 27.0 H INR 2.46 H APTT Heparin Anti-Xa Level ABG pH POC ABG pO2 ABG pO2 ABG HCO3 ABG O2 Saturation ABG Base Excess POC ABG pCO2 ABG Hemoglobin ABG Oxyhemoglobin ABG Chloride ABG Glucose Oxyhemoglobin Sodium Potassium Chloride Carbon Dioxide BUN Creatinine Glucose POC Glucose 109 H Lactic Acid Calcium Phosphorus Magnesium AST 424 H ALT 796 H Lactate Dehydrogenase Total Bilirubin 1.60 H Direct Bilirubin 1.2 H CK-MB (CK-2) C-Reactive Protein NT-Pro-B Natriuret Pep Total Protein Albumin 2.9 L Arterial Blood Glucose Urine WBC (Auto) Urine Creatinine 02/08/20 02/08/20 02/08/20 12:14 17:44 19:00 WBC RBC Hgb Hct MCHC RDW MCV MCH Lymph % (Auto) Carter % (Auto) Carter # Eos # Lymph # (Auto) Carter # (Auto) Eos # (Auto) Seg Neutrophils % Seg Neuts % (Manual) Baso # (Auto) Lymphocytes % (Manual) Monocytes % (Manual) Eosinophils % (Manual) Basophils % (Manual) Seg Neutrophils # Seg Neutrophils # Man Lymphocytes # (Manual) Monocytes # (Manual) Eosinophils # (Manual) Nucleated RBC % Basophils # (Manual) PT INR APTT Heparin Anti-Xa Level ABG pH POC ABG pO2 ABG pO2 ABG HCO3 ABG O2 Saturation ABG Base Excess POC ABG pCO2 ABG Hemoglobin ABG Oxyhemoglobin ABG Chloride ABG Glucose Oxyhemoglobin Sodium Potassium Chloride Carbon Dioxide BUN Creatinine Glucose POC Glucose 111 H 107 H Lactic Acid Calcium Phosphorus Magnesium AST 309 H ALT 650 H Lactate Dehydrogenase Total Bilirubin 1.30 H Direct Bilirubin 0.9 H CK-MB (CK-2) C-Reactive Protein NT-Pro-B Natriuret Pep Total Protein 6.2 L Albumin 2.7 L Arterial Blood Glucose Urine WBC (Auto) Urine Creatinine 02/09/20 02/09/20 02/09/20 05:41 12:28 18:07 WBC RBC Hgb Hct MCHC RDW MCV MCH Lymph % (Auto) Carter % (Auto) Carter # Eos # Lymph # (Auto) Carter # (Auto) Eos # (Auto) Seg Neutrophils % Seg Neuts % (Manual) Baso # (Auto) Lymphocytes % (Manual) Monocytes % (Manual) Eosinophils % (Manual) Basophils % (Manual) Seg Neutrophils # Seg Neutrophils # Man Lymphocytes # (Manual) Monocytes # (Manual) Eosinophils # (Manual) Nucleated RBC % Basophils # (Manual) PT INR APTT Heparin Anti-Xa Level ABG pH POC ABG pO2 ABG pO2 ABG HCO3 ABG O2 Saturation ABG Base Excess POC ABG pCO2 ABG Hemoglobin ABG Oxyhemoglobin ABG Chloride ABG Glucose Oxyhemoglobin Sodium Potassium Chloride Carbon Dioxide BUN Creatinine Glucose POC Glucose 113 H 140 H 143 H Lactic Acid Calcium Phosphorus Magnesium AST ALT Lactate Dehydrogenase Total Bilirubin Direct Bilirubin CK-MB (CK-2) C-Reactive Protein NT-Pro-B Natriuret Pep Total Protein Albumin Arterial Blood Glucose Urine WBC (Auto) Urine Creatinine 02/09/20 02/09/20 02/10/20 21:40 23:45 06:00 WBC RBC Hgb Hct MCHC RDW MCV MCH Lymph % (Auto) Carter % (Auto) Carter # Eos # Lymph # (Auto) Carter # (Auto) Eos # (Auto) Seg Neutrophils % Seg Neuts % (Manual) Baso # (Auto) Lymphocytes % (Manual) Monocytes % (Manual) Eosinophils % (Manual) Basophils % (Manual) Seg Neutrophils # Seg Neutrophils # Man Lymphocytes # (Manual) Monocytes # (Manual) Eosinophils # (Manual) Nucleated RBC % Basophils # (Manual) PT INR APTT Heparin Anti-Xa Level ABG pH POC ABG pO2 ABG pO2 59.8 L ABG HCO3 33.3 H ABG O2 Saturation 88.9 L ABG Base Excess 7.4 H POC ABG pCO2 ABG Hemoglobin 10.4 L ABG Oxyhemoglobin ABG Chloride ABG Glucose Oxyhemoglobin 86.3 L Sodium Potassium Chloride Carbon Dioxide BUN Creatinine Glucose POC Glucose 127 H 114 H Lactic Acid Calcium Phosphorus Magnesium AST ALT Lactate Dehydrogenase Total Bilirubin Direct Bilirubin CK-MB (CK-2) C-Reactive Protein NT-Pro-B Natriuret Pep Total Protein Albumin Arterial Blood Glucose Urine WBC (Auto) Urine Creatinine 02/10/20 02/10/20 02/10/20 07:40 07:40 13:38 WBC 11.5 H RBC Hgb 10.6 L Hct 34.7 L MCHC 31 L RDW 19.8 H MCV 79 L MCH 24 L Lymph % (Auto) Carter % (Auto) 9.2 H Carter # Eos # Lymph # (Auto) Carter # (Auto) 1.1 H Eos # (Auto) Seg Neutrophils % Seg Neuts % (Manual) Baso # (Auto) Lymphocytes % (Manual) Monocytes % (Manual) Eosinophils % (Manual) Basophils % (Manual) Seg Neutrophils # Seg Neutrophils # Man Lymphocytes # (Manual) Monocytes # (Manual) Eosinophils # (Manual) Nucleated RBC % Basophils # (Manual) PT INR APTT Heparin Anti-Xa Level ABG pH POC ABG pO2 ABG pO2 ABG HCO3 ABG O2 Saturation ABG Base Excess POC ABG pCO2 ABG Hemoglobin ABG Oxyhemoglobin ABG Chloride ABG Glucose Oxyhemoglobin Sodium 151 H Potassium Chloride 107.2 H Carbon Dioxide 36 H BUN 25 H Creatinine 0.7 L Glucose 114 H POC Glucose 116 H Lactic Acid Calcium Phosphorus Magnesium 2.40 H AST ALT Lactate Dehydrogenase Total Bilirubin Direct Bilirubin CK-MB (CK-2) C-Reactive Protein NT-Pro-B Natriuret Pep Total Protein Albumin Arterial Blood Glucose Urine WBC (Auto) Urine Creatinine 02/10/20 02/11/20 02/11/20 17:44 05:47 12:21 WBC RBC Hgb Hct MCHC RDW MCV MCH Lymph % (Auto) Carter % (Auto) Carter # Eos # Lymph # (Auto) Carter # (Auto) Eos # (Auto) Seg Neutrophils % Seg Neuts % (Manual) Baso # (Auto) Lymphocytes % (Manual) Monocytes % (Manual) Eosinophils % (Manual) Basophils % (Manual) Seg Neutrophils # Seg Neutrophils # Man Lymphocytes # (Manual) Monocytes # (Manual) Eosinophils # (Manual) Nucleated RBC % Basophils # (Manual) PT INR APTT Heparin Anti-Xa Level ABG pH POC ABG pO2 ABG pO2 ABG HCO3 ABG O2 Saturation ABG Base Excess POC ABG pCO2 ABG Hemoglobin ABG Oxyhemoglobin ABG Chloride ABG Glucose Oxyhemoglobin Sodium Potassium Chloride Carbon Dioxide BUN Creatinine Glucose POC Glucose 139 H 173 H 143 H Lactic Acid Calcium Phosphorus Magnesium AST ALT Lactate Dehydrogenase Total Bilirubin Direct Bilirubin CK-MB (CK-2) C-Reactive Protein NT-Pro-B Natriuret Pep Total Protein Albumin Arterial Blood Glucose Urine WBC (Auto) Urine Creatinine 02/11/20 02/11/20 02/12/20 13:43 14:11 00:15 WBC RBC Hgb Hct MCHC RDW MCV MCH Lymph % (Auto) Carter % (Auto) Carter # Eos # Lymph # (Auto) Carter # (Auto) Eos # (Auto) Seg Neutrophils % Seg Neuts % (Manual) Baso # (Auto) Lymphocytes % (Manual) Monocytes % (Manual) Eosinophils % (Manual) Basophils % (Manual) Seg Neutrophils # Seg Neutrophils # Man Lymphocytes # (Manual) Monocytes # (Manual) Eosinophils # (Manual) Nucleated RBC % Basophils # (Manual) PT INR APTT Heparin Anti-Xa Level ABG pH 7.502 H POC ABG pO2 77.7 L ABG pO2 ABG HCO3 ABG O2 Saturation ABG Base Excess POC ABG pCO2 ABG Hemoglobin 11.1 L ABG Oxyhemoglobin ABG Chloride 108.0 H ABG Glucose 151 H Oxyhemoglobin Sodium Potassium Chloride Carbon Dioxide BUN Creatinine Glucose POC Glucose 130 H 125 H Lactic Acid Calcium Phosphorus Magnesium AST ALT Lactate Dehydrogenase Total Bilirubin Direct Bilirubin CK-MB (CK-2) C-Reactive Protein NT-Pro-B Natriuret Pep Total Protein Albumin Arterial Blood Glucose 151 H Urine WBC (Auto) Urine Creatinine 02/12/20 02/12/20 04:56 04:56 WBC RBC Hgb 9.9 L Hct 31.8 L MCHC 31 L RDW 19.4 H MCV 79 L MCH 25 L Lymph % (Auto) Carter % (Auto) 10.3 H Carter # Eos # Lymph # (Auto) Carter # (Auto) 1.0 H Eos # (Auto) Seg Neutrophils % Seg Neuts % (Manual) Baso # (Auto) Lymphocytes % (Manual) Monocytes % (Manual) Eosinophils % (Manual) Basophils % (Manual) Seg Neutrophils # Seg Neutrophils # Man Lymphocytes # (Manual) Monocytes # (Manual) Eosinophils # (Manual) Nucleated RBC % Basophils # (Manual) PT INR APTT Heparin Anti-Xa Level ABG pH POC ABG pO2 ABG pO2 ABG HCO3 ABG O2 Saturation ABG Base Excess POC ABG pCO2 ABG Hemoglobin ABG Oxyhemoglobin ABG Chloride ABG Glucose Oxyhemoglobin Sodium 149 H Potassium Chloride 108.6 H Carbon Dioxide BUN 28 H Creatinine 0.7 L Glucose 108 H POC Glucose Lactic Acid Calcium Phosphorus Magnesium AST ALT Lactate Dehydrogenase Total Bilirubin Direct Bilirubin CK-MB (CK-2) C-Reactive Protein NT-Pro-B Natriuret Pep Total Protein Albumin Arterial Blood Glucose Urine WBC (Auto) Urine Creatinine Chest x-ray: other (none today) Allied health notes reviewed: nursing
[2020-02-12] MEDS: DIGOXIN 0.5 MG/2 ML INJ IV SCH (18:03)
--- NOTE | 2020-02-12 18:16 | Event Note ---
Date: 02/12/20 I called patient's spouse Ms. Paulette Araiza at [phone] and discussed in detail patient's condition, tests and reports, consultants recommendation Prognosis, treatment plan, she had numerous questions, I answered all of them she wanted to know, 1 or 2 tests reports, I read them to her She wanted to know more about the ventilator and the lung status, I explained and encouraged her to call back to speak with the clinical trial head. She verbalized understanding. I discussed with patient's nurse Ms. Merrill of the above conversation
[2020-02-12] MEDS: POLYETHYLENE GLYCOL 3350 17 GM POWDER PO SCH (22:39)
[2020-02-12] MEDS: TAMSULOSIN 0.4 MG CAP PO SCH (22:44)
[2020-02-13] MEDS: METOCLOPRAMIDE 10 MG/2 ML INJ IV SCH ×4 (00:37→18:33)
[2020-02-13] MEDS: METOPROLOL TARTRATE 50 MG TAB PO SCH ×4 (00:38→18:32)
[2020-02-13] MEDS: INSULIN REGULAR, HUMAN 100 UNIT/ML 3ML VIAL SUB-Q SCH ×4 (00:40→18:38)
--- NOTE | 2020-02-13 08:20 | Progress Note ---
Assessment and Plan Patient chronic tracheostomy, remains intubated on ventilatory support --Acute on chronic hypoxemic respiratory failure; Patient has tracheostomy on vent Continue nebulizers, , trach care Wean off ventilator as tolerated Pulmonary critical following --Acute exacerbation of COPD; Patient is currently on ventilatory support Continue nebulizers. Stable but still unable to wean. --Left lower lobe PE; Continue Eliquis, no evidence of bleeding. Ventilatory support --Acute right lower extremity DVT; Patient is on Eliquis --Bilateral multifocal pneumonia/community-acquired Completed antibiotics, improved repeat chest x-ray 1 to 2 days. --Severe sepsis/bilateral pneumonia: Completed antibiotics COVID-19 test; 11/24/2019; negative 11/26/2019; negative 12/29/2019: Negative -Ischemic cardiomyopathy Cardiology is following, status post cardiac catheterization on 01/22/2020; Coronary artery disease status post PCI and stent to the LAD Continue current cardiac medications --atrial fibrillation WITH RVR Now rate controlled, Stable on amiodarone and Eliquis AV devin blocking agent. --Acute on chronic combined systolic and diastolic congestive heart failure Ischemic cardiomyopathy left ventricular ejection fraction 40 to 45% --H/o CAD [[facility] 12/2018 in-stent restenosis] --Hypertensive emergency; present on admission Reasonable blood pressures, continue current antihypertensives No change in medical management. --Hypokalemia; has been corrected and resolved. --History of alcohol abuse/alcohol withdrawal; Was on CIWA protocol, now stable --Oropharyngeal dysphagia; status post PEG placement Continue PEG feeds per protocol --History of partial small bowel obstruction; resolved Surgery evaluated. At present not a surgical candidate. --Obesity; BMI 34.7 unable to take in adequate amounts of food on his own at this time. Suspect weight loss. Severe protein deficiency malnutrition. Patient needs weight reduction when medically stable --Severe protein calorie malnutrition/hypoalbuminemia Nutrition supplements, dietitian following, PEG feeds --DVT prophylaxis;Eliquis --Full CODE STATUS Subjective Date of service: 02/13/20 Principal diagnosis: Ac hypoxemic resp failure; Pneumonia; PUI COVID-19; CHF; COPD; HTN Interval history: Patient is a 64-year-old male with known history of hypertension, COPD, history of coronary artery disease, CHF with ejection fraction of 20 to 25% in August 2018 presenting to the emergency room via EMS complaining of shortness of breath. Patient was found to be hypoxic and in respiratory distress. Patient was placed on CPAP in route to the hospital. Patient remained hypoxic on CPAP BiPAP ,subsequently was intubated. Work-up in the emergency room including chest x-ray reveals bilateral pneumonia. He had an elevated white count of 14 and also had an elevated BNP. sputum cultures positive for Pseudomonas, ID treated with cefepime and Vanco. His hospital course became complicated with acute PE, DVT, paroxysmal atrial fib - placed on chronic anticoagulation. Patient was difficult to wean off, status post trach and PEG, remains on mechanical ventilation with trach tube. He then developed partial small bowel obstruction valuated by general surgeon symptom improved with medical Mx, patient was briefly weaned off ventilatory support however, was in respiratory failure requiring full ventilatory support. Cardiac catheterization on 01/22/2020. scussed with Nursing staff, patient with some mild change in mental status, not following commands like prior,WILL OBTAIN HEAD CT remains intubated on full mechanical ventilatory support. Today is my first day seeing the patient, have reviewed all records so far. Patients still with elevated heart rate of Afib with RVR continue amiodarone and metoprolol. LVEF 40 to 45%. Continue Eliquis FOR THE Acute PE/DVT. Partial SBO vs ileus- KUB is negative. Will monitor, No further vomiting noted. If no improvement will repeat a chest xray to ensure no aspiration in the last 24 hrs. Will initiate sepsis work up, Obtain cultures, cxr- no change, only showing stable bilateral pulmonary opacities, lactate checked and wnl. Mild elevation in WBC. will recheck in am. IF Continued fever, will reconsult ID. 02/03: Mental status more improved, agree with Reglan will change to IV scheduled for two days, no new vomiting. Pseudomonas A in Sputum. 02/04: Clinical improving, amiodarone discontinued due to LFTs, continue Metoprolol.d/w GI, started on Golytely to clear impaction. Started on dialy Miralax. 02/05: Continue supportive care. Noted bowel movement, continue bowel regimen 02/06: Cardiology input noted beta-hebert increased for better suppression of atrial fibrillation. Continue to monitor, no other evidence of nausea vomiting noted. Discussed with respiratory therapist will be continued on weaning protocol with pressure support today. 02/07: Patient successfully weaned off the ventilator, No new complaints, continue monitoring, BM noted, Discussed with pulmonary, 02/08; tracheostomy on T-piece, patient is more alert and awake today 02/09; clinically no change, tracheostomy on vent 02/10; tracheostomy on vent, full CODE STATUS, poor prognosis, 02/11; clinically no change, remains on ventilatory support, full CODE STATus 02/12. Patient resting comfortably no change on vent with tracheostomy. Still unable to wean. Some increased crackles today. Objective - Constitutional Vitals: Vital Signs - 12hr 02/12/20 02/12/20 02/12/20 20:26 20:31 21:00 Temperature Pulse Rate 112 H 92 H 92 H Pulse Rate [ From Monitor] Respiratory 27 H 27 H Rate Blood Pressure 89/67 92/67 91/64 O2 Sat by Pulse 97 Oximetry O2 Sat by Pulse Oximetry [ Assessment] 02/12/20 02/12/20 02/12/20 21:30 22:01 22:30 Temperature Pulse Rate 103 H 97 H 106 H Pulse Rate [ From Monitor] Respiratory 28 H 21 26 H Rate Blood Pressure 87/65 87/65 94/68 O2 Sat by Pulse Oximetry O2 Sat by Pulse Oximetry [ Assessment] 02/12/20 02/12/20 02/12/20 23:00 23:03 23:15 Temperature 98.8 F Pulse Rate 103 H 95 H Pulse Rate [ From Monitor] Respiratory 24 25 H Rate Blood Pressure 95/70 95/70 O2 Sat by Pulse Oximetry O2 Sat by Pulse Oximetry [ Assessment] 02/12/20 02/13/20 02/13/20 23:30 00:00 00:30 Temperature Pulse Rate 92 H 109 H 121 H Pulse Rate [ 92 H From Monitor] Respiratory 26 H 26 H 24 Rate Blood Pressure 97/67 83/63 95/73 O2 Sat by Pulse 97 Oximetry O2 Sat by Pulse Oximetry [ Assessment] 02/13/20 02/13/20 02/13/20 00:31 00:38 01:00 Temperature Pulse Rate 121 H 117 H 98 H Pulse Rate [ From Monitor] Respiratory 25 H Rate Blood Pressure 95/73 95/73 90/64 O2 Sat by Pulse 97 Oximetry O2 Sat by Pulse Oximetry [ Assessment] 02/13/20 02/13/20 02/13/20 01:30 02:01 02:30 Temperature Pulse Rate 95 H 103 H 116 H Pulse Rate [ From Monitor] Respiratory 27 H 25 H 26 H Rate Blood Pressure 84/65 91/73 93/75 O2 Sat by Pulse Oximetry O2 Sat by Pulse Oximetry [ Assessment] 02/13/20 02/13/20 02/13/20 03:00 03:01 03:30 Temperature 97.7 F Pulse Rate 107 H 107 H Pulse Rate [ From Monitor] Respiratory 25 H 24 Rate Blood Pressure 109/70 100/70 O2 Sat by Pulse 99 Oximetry O2 Sat by Pulse Oximetry [ Assessment] 02/13/20 02/13/20 02/13/20 04:00 04:15 04:17 Temperature Pulse Rate 103 H 103 H Pulse Rate [ 117 H From Monitor] Respiratory 25 H Rate Blood Pressure 94/69 94/69 O2 Sat by Pulse 97 97 Oximetry O2 Sat by Pulse 98 Oximetry [ Assessment] 02/13/20 02/13/20 02/13/20 04:31 05:00 05:30 Temperature Pulse Rate 116 H 108 H 105 H Pulse Rate [ From Monitor] Respiratory 27 H 23 23 Rate Blood Pressure 96/78 106/73 115/80 O2 Sat by Pulse Oximetry O2 Sat by Pulse Oximetry [ Assessment] 02/13/20 02/13/20 02/13/20 06:01 06:12 07:40 Temperature Pulse Rate 115 H 99 H 116 H Pulse Rate [ From Monitor] Respiratory 23 Rate Blood Pressure 94/71 94/71 94/73 O2 Sat by Pulse 100 Oximetry O2 Sat by Pulse Oximetry [ Assessment] 02/13/20 07:43 Temperature Pulse Rate 103 H Pulse Rate [ From Monitor] Respiratory 25 H Rate Blood Pressure 94/73 O2 Sat by Pulse 99 Oximetry O2 Sat by Pulse Oximetry [ Assessment] General appearance: Present: no acute distress, other (Encephalopathic) - Respiratory Respiratory effort: normal Respiratory: bilateral: diminished Extremity abnormal: edema - Gastrointestinal General gastrointestinal: Present: non-tender, distended, hypoactive bowel sounds - Musculoskeletal Musculoskeletal: generalized weakness - Neurologic Neurologic: other (Encephalopathic minimally responsive.) - Labs CBC & Chem 7: 02/12/20 04:56 02/12/20 04:56 Labs: Abnormal lab results 02/12/20 02/13/20 02/13/20 Range/Units 17:42 00:39 05:36 POC Glucose 113 H 129 H 126 H (70-105) mg/dL HEART Score - HEART Score Troponin: Troponin T < 0.010 ng/mL (0.00-0.029) 01/19/20 01:35
--- NOTE | 2020-02-13 11:00 | Progress Note ---
Assessment and Plan - Patient Problems (1) Paroxysmal atrial fibrillation Current Visit: Yes Status: Acute Plan to address problem: Continue conservative cardiac medical management as previously outlined. Subjective Date of service: 02/13/20 Principal diagnosis: Ac hypoxemic resp failure; Pneumonia; PUI COVID-19; CHF; COPD; HTN Interval history: Patient is lethargic, breathing via trach, remains in atrial fibrillation with well-controlled ventricular rate. Objective Vital Signs Temp Pulse Pulse Resp Resp BP Pulse Ox 02/13/20 09:30 96 H 24 95/67 98 02/13/20 09:01 113 H 24 110/72 97 02/13/20 08:31 106 H 22 98/77 94 02/13/20 08:01 119 H 25 H 94/73 98 02/13/20 08:00 98.6 F 02/13/20 07:43 103 H 25 H 94/73 99 02/13/20 07:40 116 H 94/73 100 02/13/20 07:31 103 H 22 87/68 02/13/20 07:01 101 H 22 112/88 02/13/20 06:31 96 H 22 116/69 02/13/20 06:12 99 H 94/71 02/13/20 06:01 115 H 23 94/71 02/13/20 05:30 105 H 23 115/80 02/13/20 05:00 108 H 23 106/73 02/13/20 04:31 116 H 27 H 96/78 02/13/20 04:17 02/13/20 04:15 103 H 94/69 97 02/13/20 04:00 103 H 117 H 25 H 94/69 97 02/13/20 03:30 107 H 24 100/70 99 02/13/20 03:01 97.7 F 02/13/20 03:00 107 H 25 H 109/70 02/13/20 02:30 116 H 26 H 93/75 02/13/20 02:01 103 H 25 H 91/73 02/13/20 01:30 95 H 27 H 84/65 02/13/20 01:00 98 H 25 H 90/64 02/13/20 00:38 117 H 95/73 02/13/20 00:31 121 H 95/73 97 02/13/20 00:30 121 H 24 95/73 11/21/20 00:00 109 H 92 H 26 H 83/63 97 20/20 23:30 92 H 26 H 97/67 2020 23:15 95 H 25 H 95/70 2020 23:03 98.8 F 2020 23:00 103 H 24 95/70 2020 22:30 106 H 26 H 94/68 2020 22:01 97 H 21 87/65 2020 21:30 103 H 28 H 87/65 20/20 21:00 92 H 27 H 91/64 20/20 20:31 92 H 27 H 92/67 20/20 20:26 112 H 89/67 97 20/20 20:00 95 H 92 H 26 H 89/67 97 20/20 19:50 97.6 F 20 19:30 106 H 22 89/64 2020 19:00 97 H 21 86/58 2020 18:30 97 H 23 85/67 20 18:04 125 H 107/83 2020 18:03 127 H 107/83 2020 18:01 126 H 27 H 107/83 02/12/20 17:30 110 H 22 87/65 99 20 17:00 94 H 24 88/58 97 2020 16:31 126 H 25 H 94/55 97 2020 16:25 106 H 107/77 97 02/12/20 16:01 96 H 12 89/67 02/12/20 16:00 98.6 F 84 84 22 20 97 2020 15:30 96 H 24 89/67 99 20/20 15:00 100 H 27 H 86/62 99 20/20 14:30 107 H 27 H 95/57 98 2020 14:00 101 H 20 83/58 98 02/12/20 13:30 102 H 19 91/62 99 20/20 13:03 02/12/20 13:00 101 H 22 91/67 98 20/20 12:30 112 H 29 H 85/64 99 20 12:18 105 H 86/65 98 02/12/20 12:00 98.1 F 87 89 26 H 22 86/65 99 02/12/20 11:31 108 H 28 H 98/70 99 02/12/20 11:27 23 02/12/20 11:00 108 H 21 102/61 Pulse Ox 02/13/20 09:30 02/13/20 09:01 02/13/20 08:31 02/13/20 08:01 02/13/20 08:00 02/13/20 07:43 02/13/20 07:40 02/13/20 07:31 02/13/20 07:01 02/13/20 06:31 02/13/20 06:12 02/13/20 06:01 02/13/20 05:30 02/13/20 05:00 02/13/20 04:31 02/13/20 04:17 98 02/13/20 04:15 02/13/20 04:00 02/13/20 03:30 02/13/20 03:01 02/13/20 03:00 02/13/20 02:30 02/13/20 02:01 02/13/20 01:30 02/13/20 01:00 02/13/20 00:38 02/13/20 00:31 02/13/20 00:30 02/13/20 00:00 02/12/20 23:30 02/12/20 23:15 02/12/20 23:03 02/12/20 23:00 02/12/20 22:30 02/12/20 22:01 02/12/20 21:30 02/12/20 21:00 02/12/20 20:31 02/12/20 20:26 02/12/20 20:00 02/12/20 19:50 02/12/20 19:30 02/12/20 19:00 02/12/20 18:30 02/12/20 18:04 02/12/20 18:03 02/12/20 18:01 02/12/20 17:30 02/12/20 17:00 02/12/20 16:31 02/12/20 16:25 02/12/20 16:01 02/12/20 16:00 02/12/20 15:30 02/12/20 15:00 02/12/20 14:30 02/12/20 14:00 02/12/20 13:30 02/12/20 13:03 98 02/12/20 13:00 02/12/20 12:30 02/12/20 12:18 02/12/20 12:00 02/12/20 11:31 02/12/20 11:27 02/12/20 11:00 - Physical Examination General: Cachectic, Other (s/p trach) HEENT: Positive: PERRL Neck: Positive: neck supple Cardiac: Positive: irregularly irregular Lungs: Positive: Decreased Breath Sounds Neuro: Positive: Weakness Abdomen: Positive: Soft Skin: Positive: Clear Extremities: Absent: edema - Allied health notes Allied health notes reviewed: nursing
[2020-02-13] MEDS: CLOPIDOGREL 75 MG TAB PO SCH (11:01)
[2020-02-13] MEDS: MIDODRINE 5 MG TAB PO SCH ×3 (11:01→18:33)
[2020-02-13] MEDS: QUEtiapine 100 MG TAB PO SCH ×2 (11:01→22:12)
[2020-02-13] MEDS: APIXABAN 5 MG TAB PO SCH ×2 (11:02→22:13)
[2020-02-13] MEDS: LANSOPRAZOLE 30 MG SOLUTAB FEEDTUBE SCH (11:05)
[2020-02-13] MEDS: GLYCOPYRROLATE 2 MG TAB PO SCH ×3 (11:06→20:45)
[2020-02-13] MEDS: ACETAMINOPHEN 325 MG/10.15 ML ORAL LIQD UNIT DOSE FEEDTUBE PRN (11:09)
--- NOTE | 2020-02-13 12:31 | Progress Note ---
Assessment and Plan Acute hypoxemic respiratory failure Bilateral pneumonia, community acquired. Acute LLL branch P.E. Acute DVT Person under investigation for COVID-19 infection. Acute congestive heart failure exacerbation. History of cerebrovascular accident. Acute chronic obstructive pulmonary disease exacerbation. Hypertension and hypertensive urgency at presentation. History of arthritis. Leukocytosis. Lactic acidosis. Oropharyngeal dysphagia - continue Robinul & Scopolamine for secretion control - continue daily SAT's and SBT assessment as tolerated -May need Psych input too better titrate and mange agitation/anxiety -CXR, ABG as clinically indicated -PT/OT to treat, mobility -Conservative fluid management, intermittent diuresis while monitoring renal function and hemodynamics - Discharge planning - continue rate control per cardiology team - continue prn haldol for agitation to avoid hypoventilation - continue Flomax - Midodrine for blood pressure - prn mucomyst nebs re: secretions - continue full anticoagulation with Apixaban - continue seroquel for anxiolysis / delirium - continue to wean oxygen for O2 sats > 92% - continue bronchodilators with routine trach care and pulmonary hygiene per RT - continue Robinul & Scopolamine for secretion control - VAP bundle addressed (Aspiration precautions, HOB >40) - continue to wean per pulmonary driven protocols - sedation target is RASS 0 to -1 - continue prn analgesia per CPOT score - follow clinically re: fever curves / trend WBC - Avoid delirium (no benzodiazepines if they can be avoided) - Maintain sleep-wake cycle - enteral nutrition at goal rate as tolerated - continue accuchecks with glycemic control per SSI for target blood glucose goal of 140-180 mg/dL while critically ill; Avoid hypoglycemia - for VTE he is on IV Heparin - continue stress ulcer prophylaxis with Famotidine - continue mobility protocols for pressure ulcer prophylaxis - continue fall precautions - continue wound care management per RN / WCT - Supportive transfusions to keep HgB>7g/dL - Continue to monitor neurologic function - Continue all supportive care ........ re-evaluate in am & prn CONDITION: CRITICAL PROGNOSIS: GUARDED CODE STATUS: FULL CODE The high probability of a clinically significant, sudden or life threatening deterioration of the [Respiratory, cardiovascular & neurological] system(s) required my full and direct attention, intervention and personal management. The aggregate critical care time was [32] minutes without overlap. Time includes spent on [x] Data Review and interpretation [x] Patient assessment and monitoring of vital signs [x] Documentation [x] Medication orders and management Subjective Date of service: 02/13/20 Principal diagnosis: Ac hypoxemic resp failure; Pneumonia; PUI COVID-19; CHF; COPD; HTN Interval history: Patient is seen today for: Acute hypoxemic respiratory failure; [place]. Pneumonia (CAP); PUI COVID-19 infection; AE-CHF; AE-COPD; H/O CVA; HTN; PE, DVT Seen and examined at bedside; 24 hour events reviewed; nursing and respiratory care staff consulted; no adverse overnight events reported to me; resting peacefully in bed; s/p trach on full support, awake and alert ,tolerating tube feedings. Vent AC-VC 12/450/+6/30% Size#6 Shiley, did not tolerate ATP trials this morning- extreme agitation and mouthing words"I can't breathe". On SBT-PSV at this time. Mouths words to make needs known, is interactive Objective Vital Signs - 12hr 02/13/20 02/13/20 02/13/20 00:31 00:38 01:00 Temperature Pulse Rate 121 H 117 H 98 H Pulse Rate [ From Monitor] Respiratory 25 H Rate Blood Pressure 95/73 95/73 90/64 O2 Sat by Pulse 97 Oximetry O2 Sat by Pulse Oximetry [ Assessment] 02/13/20 02/13/20 02/13/20 01:30 02:01 02:30 Temperature Pulse Rate 95 H 103 H 116 H Pulse Rate [ From Monitor] Respiratory 27 H 25 H 26 H Rate Blood Pressure 84/65 91/73 93/75 O2 Sat by Pulse Oximetry O2 Sat by Pulse Oximetry [ Assessment] 02/13/20 02/13/20 02/13/20 03:00 03:01 03:30 Temperature 97.7 F Pulse Rate 107 H 107 H Pulse Rate [ From Monitor] Respiratory 25 H 24 Rate Blood Pressure 109/70 100/70 O2 Sat by Pulse 99 Oximetry O2 Sat by Pulse Oximetry [ Assessment] 02/13/20 02/13/20 02/13/20 04:00 04:15 04:17 Temperature Pulse Rate 103 H 103 H Pulse Rate [ 117 H From Monitor] Respiratory 25 H Rate Blood Pressure 94/69 94/69 O2 Sat by Pulse 97 97 Oximetry O2 Sat by Pulse 98 Oximetry [ Assessment] 02/13/20 02/13/20 02/13/20 04:31 05:00 05:30 Temperature Pulse Rate 116 H 108 H 105 H Pulse Rate [ From Monitor] Respiratory 27 H 23 23 Rate Blood Pressure 96/78 106/73 115/80 O2 Sat by Pulse Oximetry O2 Sat by Pulse Oximetry [ Assessment] 02/13/20 02/13/20 02/13/20 06:01 06:12 06:31 Temperature Pulse Rate 115 H 99 H 96 H Pulse Rate [ From Monitor] Respiratory 23 22 Rate Blood Pressure 94/71 94/71 116/69 O2 Sat by Pulse Oximetry O2 Sat by Pulse Oximetry [ Assessment] 02/13/20 02/13/20 02/13/20 07:01 07:31 07:40 Temperature Pulse Rate 101 H 103 H 116 H Pulse Rate [ From Monitor] Respiratory 22 22 Rate Blood Pressure 112/88 87/68 94/73 O2 Sat by Pulse 100 Oximetry O2 Sat by Pulse Oximetry [ Assessment] 02/13/20 02/13/20 02/13/20 07:43 08:00 08:01 Temperature 98.6 F Pulse Rate 103 H 119 H Pulse Rate [ From Monitor] Respiratory 25 H 25 H Rate Blood Pressure 94/73 94/73 O2 Sat by Pulse 99 98 Oximetry O2 Sat by Pulse Oximetry [ Assessment] 02/13/20 02/13/20 02/13/20 08:31 09:01 09:30 Temperature Pulse Rate 106 H 113 H 96 H Pulse Rate [ From Monitor] Respiratory 22 24 24 Rate Blood Pressure 98/77 110/72 95/67 O2 Sat by Pulse 94 97 98 Oximetry O2 Sat by Pulse Oximetry [ Assessment] 02/13/20 02/13/20 02/13/20 10:00 10:31 11:00 Temperature Pulse Rate 96 H 128 H 103 H Pulse Rate [ From Monitor] Respiratory 24 25 H 19 Rate Blood Pressure 85/67 85/67 111/72 O2 Sat by Pulse 96 96 97 Oximetry O2 Sat by Pulse Oximetry [ Assessment] 02/13/20 02/13/20 02/13/20 11:02 11:30 11:54 Temperature Pulse Rate 101 H 101 H 102 H Pulse Rate [ From Monitor] Respiratory 22 24 Rate Blood Pressure 111/72 97/71 97/71 O2 Sat by Pulse 94 95 Oximetry O2 Sat by Pulse Oximetry [ Assessment] 02/13/20 12:00 Temperature Pulse Rate 107 H Pulse Rate [ From Monitor] Respiratory 25 H Rate Blood Pressure 97/71 O2 Sat by Pulse 100 Oximetry O2 Sat by Pulse Oximetry [ Assessment] Constitutional: appears uncomfortable, other (elelelderly and obese male, normocephalic with mildly increased respiratory effort at rest) Eyes: non-icteric ENT: oropharynx moist, other (+ midline tracheostomy) Neck: supple, no JVD Effort: mildly labored Ascultation: Bilateral: clear, diminished breath sounds, other (tracheal secretions ) Percussion: Bilateral: not dull Cardiovascular: irregular rhythm, other (flow murmur) Gastrointestinal: normoactive bowel sounds, soft, non-tender, non-distended (p rotuberant), other (protuberant; PEG in place) Integumentary: normal Extremities: no cyanosis, pulses normal, no ischemia or petechiae, edema (bilateral upper ) Neurologic: non-focal exam (moves extremities, obeys simple commands), pupils equal and round, CN II-XII normal Psychiatric: anxious CBC and BMP: 02/12/20 04:56 02/15/20 06:59 ABG, PT/INR, D-dimer: ABG ABG pH 7.502 (7.320-7.450) H 02/11/20 14:11 POC ABG pCO2 34.8 mmHg (32.0-48.0) 02/11/20 14:11 ABG pCO2 54.1 mm Hg 02/09/20 21:40 POC ABG pO2 77.7 mmHg (83-108) L 02/11/20 14:11 ABG pO2 59.8 mm Hg (80.0-90.0) L 02/09/20 21:40 POC ABG HCO3 26.7 02/11/20 14:11 ABG O2 Saturation 88.9 % (95.0-99.0) L 02/09/20 21:40 PT/INR, D-dimer PT 27.0 Sec. (12.2-14.9) H 02/07/20 15:03 INR 2.46 (0.87-1.13) H 02/07/20 15:03 Abnormal lab findings: Abnormal Labs 11/24/19 11/24/19 11/24/19 02:53 02:53 03:45 WBC 14.3 H RBC Hgb Hct MCHC RDW 17.2 H MCV MCH Lymph % (Auto) [place] % (Auto) [place] # Eos # Lymph # (Auto) [place] # (Auto) Eos # (Auto) Seg Neutrophils % Seg Neuts % (Manual) Baso # (Auto) Lymphocytes % (Manual) Monocytes % (Manual) Eosinophils % (Manual) Basophils % (Manual) Seg Neutrophils # Seg Neutrophils # Man 8.3 H Lymphocytes # (Manual) Monocytes # (Manual) 0.9 H Eosinophils # (Manual) Nucleated RBC % Basophils # (Manual) PT INR APTT Heparin Anti-Xa Level ABG pH 7.313 L POC ABG pO2 ABG pO2 102.8 H ABG HCO3 ABG O2 Saturation ABG Base Excess -2.9 L POC ABG pCO2 ABG Hemoglobin ABG Oxyhemoglobin ABG Chloride ABG Glucose Oxyhemoglobin 93.9 L Sodium Potassium Chloride Carbon Dioxide BUN Creatinine Glucose 195 H POC Glucose Lactic Acid Calcium Phosphorus Magnesium AST ALT Lactate Dehydrogenase Total Bilirubin Direct Bilirubin CK-MB (CK-2) 4.3 H C-Reactive Protein NT-Pro-B Natriuret Pep 1181 H Total Protein Albumin Arterial Blood Glucose Urine WBC (Auto) Urine Creatinine 11/24/19 11/24/19 11/24/19 04:53 04:53 10:37 WBC RBC Hgb Hct MCHC RDW MCV MCH Lymph % (Auto) [place] % (Auto) [place] # Eos # Lymph # (Auto) [place] # (Auto) Eos # (Auto) Seg Neutrophils % Seg Neuts % (Manual) Baso # (Auto) Lymphocytes % (Manual) Monocytes % (Manual) Eosinophils % (Manual) Basophils % (Manual) Seg Neutrophils # Seg Neutrophils # Man Lymphocytes # (Manual) Monocytes # (Manual) Eosinophils # (Manual) Nucleated RBC % Basophils # (Manual) PT INR APTT Heparin Anti-Xa Level ABG pH POC ABG pO2 ABG pO2 ABG HCO3 ABG O2 Saturation ABG Base Excess POC ABG pCO2 ABG Hemoglobin ABG Oxyhemoglobin ABG Chloride ABG Glucose Oxyhemoglobin Sodium Potassium Chloride Carbon Dioxide BUN Creatinine Glucose 162 H POC Glucose Lactic Acid 2.40 H* 2.50 H* Calcium Phosphorus Magnesium AST ALT Lactate Dehydrogenase 240 H Total Bilirubin Direct Bilirubin CK-MB (CK-2) C-Reactive Protein NT-Pro-B Natriuret Pep Total Protein Albumin Arterial Blood Glucose Urine WBC (Auto) Urine Creatinine 11/24/19 11/24/19 11/24/19 12:21 14:50 19:54 WBC RBC Hgb Hct MCHC RDW MCV MCH Lymph % (Auto) [place] % (Auto) [place] # Eos # Lymph # (Auto) [place] # (Auto) Eos # (Auto) Seg Neutrophils % Seg Neuts % (Manual) Baso # (Auto) Lymphocytes % (Manual) Monocytes % (Manual) Eosinophils % (Manual) Basophils % (Manual) Seg Neutrophils # Seg Neutrophils # Man Lymphocytes # (Manual) Monocytes # (Manual) Eosinophils # (Manual) Nucleated RBC % Basophils # (Manual) PT INR APTT Heparin Anti-Xa Level ABG pH POC ABG pO2 ABG pO2 ABG HCO3 ABG O2 Saturation ABG Base Excess POC ABG pCO2 ABG Hemoglobin ABG Oxyhemoglobin ABG Chloride ABG Glucose Oxyhemoglobin Sodium Potassium Chloride Carbon Dioxide BUN Creatinine Glucose POC Glucose 145 H 143 H 124 H Lactic Acid Calcium Phosphorus Magnesium AST ALT Lactate Dehydrogenase Total Bilirubin Direct Bilirubin CK-MB (CK-2) C-Reactive Protein NT-Pro-B Natriuret Pep Total Protein Albumin Arterial Blood Glucose Urine WBC (Auto) Urine Creatinine 11/25/19 11/25/19 11/25/19 00:18 03:18 05:11 WBC 13.7 H RBC Hgb Hct MCHC RDW 17.1 H MCV MCH Lymph % (Auto) 10.8 L [place] % (Auto) 8.7 H [place] # 1.2 H Eos # Lymph # (Auto) [place] # (Auto) Eos # (Auto) Seg Neutrophils % 80.2 H Seg Neuts % (Manual) Baso # (Auto) Lymphocytes % (Manual) Monocytes % (Manual) Eosinophils % (Manual) Basophils % (Manual) Seg Neutrophils # 11.0 H Seg Neutrophils # Man Lymphocytes # (Manual) Monocytes # (Manual) Eosinophils # (Manual) Nucleated RBC % Basophils # (Manual) PT INR APTT Heparin Anti-Xa Level ABG pH 7.333 L POC ABG pO2 ABG pO2 61.2 L ABG HCO3 ABG O2 Saturation 90.2 L ABG Base Excess POC ABG pCO2 ABG Hemoglobin 13.7 L ABG Oxyhemoglobin ABG Chloride ABG Glucose Oxyhemoglobin 88.2 L Sodium Potassium Chloride Carbon Dioxide BUN Creatinine Glucose POC Glucose 109 H Lactic Acid Calcium Phosphorus Magnesium AST ALT Lactate Dehydrogenase Total Bilirubin Direct Bilirubin CK-MB (CK-2) C-Reactive Protein NT-Pro-B Natriuret Pep Total Protein Albumin Arterial Blood Glucose Urine WBC (Auto) Urine Creatinine 11/25/19 11/25/19 11/26/19 05:11 11:40 03:12 WBC RBC Hgb Hct MCHC RDW MCV MCH Lymph % (Auto) [place] % (Auto) [place] # Eos # Lymph # (Auto) [place] # (Auto) Eos # (Auto) Seg Neutrophils % Seg Neuts % (Manual) Baso # (Auto) Lymphocytes % (Manual) Monocytes % (Manual) Eosinophils % (Manual) Basophils % (Manual) Seg Neutrophils # Seg Neutrophils # Man Lymphocytes # (Manual) Monocytes # (Manual) Eosinophils # (Manual) Nucleated RBC % Basophils # (Manual) PT INR APTT Heparin Anti-Xa Level ABG pH POC ABG pO2 ABG pO2 155.1 H ABG HCO3 27.8 H ABG O2 Saturation ABG Base Excess POC ABG pCO2 ABG Hemoglobin 12.2 L ABG Oxyhemoglobin ABG Chloride ABG Glucose Oxyhemoglobin Sodium Potassium Chloride Carbon Dioxide BUN 23 H Creatinine Glucose 110 H POC Glucose 108 H Lactic Acid Calcium Phosphorus Magnesium AST ALT Lactate Dehydrogenase Total Bilirubin Direct Bilirubin CK-MB (CK-2) C-Reactive Protein NT-Pro-B Natriuret Pep Total Protein Albumin Arterial Blood Glucose Urine WBC (Auto) Urine Creatinine 11/26/19 11/26/19 11/26/19 06:17 10:43 10:43 WBC 11.4 H RBC Hgb Hct MCHC RDW 17.1 H MCV MCH Lymph % (Auto) [place] % (Auto) [place] # Eos # Lymph # (Auto) [place] # (Auto) Eos # (Auto) Seg Neutrophils % Seg Neuts % (Manual) Baso # (Auto) Lymphocytes % (Manual) Monocytes % (Manual) Eosinophils % (Manual) Basophils % (Manual) Seg Neutrophils # Seg Neutrophils # Man Lymphocytes # (Manual) Monocytes # (Manual) Eosinophils # (Manual) Nucleated RBC % Basophils # (Manual) PT INR APTT Heparin Anti-Xa Level ABG pH POC ABG pO2 ABG pO2 ABG HCO3 ABG O2 Saturation ABG Base Excess POC ABG pCO2 ABG Hemoglobin ABG Oxyhemoglobin ABG Chloride ABG Glucose Oxyhemoglobin Sodium Potassium Chloride Carbon Dioxide BUN 29 H Creatinine Glucose POC Glucose 107 H Lactic Acid Calcium Phosphorus Magnesium AST ALT Lactate Dehydrogenase Total Bilirubin Direct Bilirubin CK-MB (CK-2) C-Reactive Protein NT-Pro-B Natriuret Pep Total Protein Albumin Arterial Blood Glucose Urine WBC (Auto) Urine Creatinine 11/26/19 11/27/19 11/27/19 17:11 01:53 04:11 WBC RBC Hgb Hct MCHC RDW MCV MCH Lymph % (Auto) [place] % (Auto) [place] # Eos # Lymph # (Auto) [place] # (Auto) Eos # (Auto) Seg Neutrophils % Seg Neuts % (Manual) Baso # (Auto) Lymphocytes % (Manual) Monocytes % (Manual) Eosinophils % (Manual) Basophils % (Manual) Seg Neutrophils # Seg Neutrophils # Man Lymphocytes # (Manual) Monocytes # (Manual) Eosinophils # (Manual) Nucleated RBC % Basophils # (Manual) PT INR APTT Heparin Anti-Xa Level ABG pH POC ABG pO2 ABG pO2 ABG HCO3 29.2 H ABG O2 Saturation ABG Base Excess 3.4 H POC ABG pCO2 ABG Hemoglobin 13.3 L ABG Oxyhemoglobin ABG Chloride ABG Glucose Oxyhemoglobin 94.5 L Sodium Potassium Chloride Carbon Dioxide BUN Creatinine Glucose POC Glucose 113 H 108 H Lactic Acid Calcium Phosphorus Magnesium AST ALT Lactate Dehydrogenase Total Bilirubin Direct Bilirubin CK-MB (CK-2) C-Reactive Protein NT-Pro-B Natriuret Pep Total Protein Albumin Arterial Blood Glucose Urine WBC (Auto) Urine Creatinine 11/27/19 11/28/19 11/28/19 05:27 05:00 05:25 WBC RBC Hgb Hct MCHC RDW MCV MCH Lymph % (Auto) [place] % (Auto) [place] # Eos # Lymph # (Auto) [place] # (Auto) Eos # (Auto) Seg Neutrophils % Seg Neuts % (Manual) Baso # (Auto) Lymphocytes % (Manual) Monocytes % (Manual) Eosinophils % (Manual) Basophils % (Manual) Seg Neutrophils # Seg Neutrophils # Man Lymphocytes # (Manual) Monocytes # (Manual) Eosinophils # (Manual) Nucleated RBC % Basophils # (Manual) PT INR APTT Heparin Anti-Xa Level ABG pH POC ABG pO2 68.1 L ABG pO2 ABG HCO3 ABG O2 Saturation ABG Base Excess POC ABG pCO2 ABG Hemoglobin ABG Oxyhemoglobin 91.2 L ABG Chloride ABG Glucose Oxyhemoglobin Sodium Potassium Chloride Carbon Dioxide BUN Creatinine Glucose POC Glucose 111 H 110 H Lactic Acid Calcium Phosphorus Magnesium AST ALT Lactate Dehydrogenase Total Bilirubin Direct Bilirubin CK-MB (CK-2) C-Reactive Protein NT-Pro-B Natriuret Pep Total Protein Albumin Arterial Blood Glucose Urine WBC (Auto) Urine Creatinine 11/28/19 11/28/19 11/28/19 12:08 13:47 13:47 WBC 11.3 H RBC Hgb Hct MCHC RDW 16.1 H MCV MCH Lymph % (Auto) [place] % (Auto) 9.9 H [place] # 1.1 H Eos # Lymph # (Auto) [place] # (Auto) Eos # (Auto) Seg Neutrophils % 71.4 H Seg Neuts % (Manual) Baso # (Auto) Lymphocytes % (Manual) Monocytes % (Manual) Eosinophils % (Manual) Basophils % (Manual) Seg Neutrophils # 8.1 H Seg Neutrophils # Man Lymphocytes # (Manual) Monocytes # (Manual) Eosinophils # (Manual) Nucleated RBC % Basophils # (Manual) PT INR APTT Heparin Anti-Xa Level ABG pH POC ABG pO2 ABG pO2 ABG HCO3 ABG O2 Saturation ABG Base Excess POC ABG pCO2 ABG Hemoglobin ABG Oxyhemoglobin ABG Chloride ABG Glucose Oxyhemoglobin Sodium Potassium Chloride Carbon Dioxide BUN 23 H Creatinine Glucose 123 H POC Glucose 112 H Lactic Acid Calcium Phosphorus Magnesium AST ALT Lactate Dehydrogenase Total Bilirubin Direct Bilirubin CK-MB (CK-2) C-Reactive Protein NT-Pro-B Natriuret Pep Total Protein Albumin 3.7 L Arterial Blood Glucose Urine WBC (Auto) Urine Creatinine 11/28/19 11/29/19 11/29/19 17:26 03:55 17:04 WBC RBC Hgb Hct MCHC RDW MCV MCH Lymph % (Auto) [place] % (Auto) [place] # Eos # Lymph # (Auto) [place] # (Auto) Eos # (Auto) Seg Neutrophils % Seg Neuts % (Manual) Baso # (Auto) Lymphocytes % (Manual) Monocytes % (Manual) Eosinophils % (Manual) Basophils % (Manual) Seg Neutrophils # Seg Neutrophils # Man Lymphocytes # (Manual) Monocytes # (Manual) Eosinophils # (Manual) Nucleated RBC % Basophils # (Manual) PT INR APTT Heparin Anti-Xa Level ABG pH POC ABG pO2 ABG pO2 65.7 L ABG HCO3 28.3 H ABG O2 Saturation 93.9 L ABG Base Excess 3.6 H POC ABG pCO2 ABG Hemoglobin 13.3 L ABG Oxyhemoglobin ABG Chloride ABG Glucose Oxyhemoglobin 91.5 L Sodium Potassium Chloride Carbon Dioxide BUN Creatinine Glucose POC Glucose 123 H 119 H Lactic Acid Calcium Phosphorus Magnesium AST ALT Lactate Dehydrogenase Total Bilirubin Direct Bilirubin CK-MB (CK-2) C-Reactive Protein NT-Pro-B Natriuret Pep Total Protein Albumin Arterial Blood Glucose Urine WBC (Auto) Urine Creatinine 11/30/19 11/30/19 11/30/19 04:17 04:17 04:56 WBC 13.4 H RBC Hgb Hct MCHC RDW 15.6 H MCV MCH Lymph % (Auto) [place] % (Auto) [place] # Eos # Lymph # (Auto) [place] # (Auto) Eos # (Auto) Seg Neutrophils % Seg Neuts % (Manual) Baso # (Auto) Lymphocytes % (Manual) Monocytes % (Manual) Eosinophils % (Manual) Basophils % (Manual) Seg Neutrophils # Seg Neutrophils # Man Lymphocytes # (Manual) Monocytes # (Manual) Eosinophils # (Manual) Nucleated RBC % Basophils # (Manual) PT INR APTT Heparin Anti-Xa Level ABG pH POC ABG pO2 ABG pO2 56.3 L ABG HCO3 29.3 H ABG O2 Saturation 91.5 L ABG Base Excess 4.7 H POC ABG pCO2 ABG Hemoglobin 12.1 L ABG Oxyhemoglobin ABG Chloride ABG Glucose Oxyhemoglobin 89.2 L Sodium 147 H Potassium Chloride Carbon Dioxide BUN 30 H Creatinine Glucose 124 H POC Glucose Lactic Acid Calcium Phosphorus Magnesium AST ALT Lactate Dehydrogenase Total Bilirubin Direct Bilirubin CK-MB (CK-2) C-Reactive Protein NT-Pro-B Natriuret Pep Total Protein Albumin 3.8 L Arterial Blood Glucose Urine WBC (Auto) Urine Creatinine 11/30/19 11/30/19 11/30/19 05:51 11:54 18:17 WBC RBC Hgb Hct MCHC RDW MCV MCH Lymph % (Auto) [place] % (Auto) [place] # Eos # Lymph # (Auto) [place] # (Auto) Eos # (Auto) Seg Neutrophils % Seg Neuts % (Manual) Baso # (Auto) Lymphocytes % (Manual) Monocytes % (Manual) Eosinophils % (Manual) Basophils % (Manual) Seg Neutrophils # Seg Neutrophils # Man Lymphocytes # (Manual) Monocytes # (Manual) Eosinophils # (Manual) Nucleated RBC % Basophils # (Manual) PT INR APTT Heparin Anti-Xa Level ABG pH POC ABG pO2 ABG pO2 ABG HCO3 ABG O2 Saturation ABG Base Excess POC ABG pCO2 ABG Hemoglobin ABG Oxyhemoglobin ABG Chloride ABG Glucose Oxyhemoglobin Sodium Potassium Chloride Carbon Dioxide BUN Creatinine Glucose POC Glucose 127 H 115 H 143 H Lactic Acid Calcium Phosphorus Magnesium AST ALT Lactate Dehydrogenase Total Bilirubin Direct Bilirubin CK-MB (CK-2) C-Reactive Protein NT-Pro-B Natriuret Pep Total Protein Albumin Arterial Blood Glucose Urine WBC (Auto) Urine Creatinine 12/01/19 12/01/19 12/01/19 01:18 05:22 12:16 WBC RBC Hgb Hct MCHC RDW MCV MCH Lymph % (Auto) [place] % (Auto) [place] # Eos # Lymph # (Auto) [place] # (Auto) Eos # (Auto) Seg Neutrophils % Seg Neuts % (Manual) Baso # (Auto) Lymphocytes % (Manual) Monocytes % (Manual) Eosinophils % (Manual) Basophils % (Manual) Seg Neutrophils # Seg Neutrophils # Man Lymphocytes # (Manual) Monocytes # (Manual) Eosinophils # (Manual) Nucleated RBC % Basophils # (Manual) PT INR APTT Heparin Anti-Xa Level ABG pH POC ABG pO2 ABG pO2 ABG HCO3 ABG O2 Saturation ABG Base Excess POC ABG pCO2 ABG Hemoglobin ABG Oxyhemoglobin ABG Chloride ABG Glucose Oxyhemoglobin Sodium Potassium 3.5 L Chloride 107.8 H Carbon Dioxide BUN 37 H Creatinine Glucose 157 H POC Glucose 118 H 148 H Lactic Acid Calcium 8.2 L D Phosphorus Magnesium AST 48 H ALT 60 H Lactate Dehydrogenase 194 H Total Bilirubin Direct Bilirubin CK-MB (CK-2) C-Reactive Protein 8.50 H NT-Pro-B Natriuret Pep Total Protein 5.5 L Albumin 2.8 L Arterial Blood Glucose Urine WBC (Auto) Urine Creatinine 12/01/19 12/02/19 12/02/19 18:04 00:05 05:16 WBC 11.4 H RBC Hgb Hct MCHC RDW 15.9 H MCV MCH Lymph % (Auto) [place] % (Auto) 9.9 H [place] # 1.1 H Eos # Lymph # (Auto) [place] # (Auto) Eos # (Auto) Seg Neutrophils % 70.3 H Seg Neuts % (Manual) Baso # (Auto) Lymphocytes % (Manual) Monocytes % (Manual) Eosinophils % (Manual) Basophils % (Manual) Seg Neutrophils # 8.0 H Seg Neutrophils # Man Lymphocytes # (Manual) Monocytes # (Manual) Eosinophils # (Manual) Nucleated RBC % Basophils # (Manual) PT INR APTT Heparin Anti-Xa Level ABG pH POC ABG pO2 ABG pO2 ABG HCO3 ABG O2 Saturation ABG Base Excess POC ABG pCO2 ABG Hemoglobin ABG Oxyhemoglobin ABG Chloride ABG Glucose Oxyhemoglobin Sodium Potassium Chloride Carbon Dioxide BUN Creatinine Glucose POC Glucose 143 H 107 H Lactic Acid Calcium Phosphorus Magnesium AST ALT Lactate Dehydrogenase Total Bilirubin Direct Bilirubin CK-MB (CK-2) C-Reactive Protein NT-Pro-B Natriuret Pep Total Protein Albumin Arterial Blood Glucose Urine WBC (Auto) Urine Creatinine 12/02/19 12/02/19 12/02/19 05:16 06:03 11:52 WBC RBC Hgb Hct MCHC RDW MCV MCH Lymph % (Auto) [place] % (Auto) [place] # Eos # Lymph # (Auto) [place] # (Auto) Eos # (Auto) Seg Neutrophils % Seg Neuts % (Manual) Baso # (Auto) Lymphocytes % (Manual) Monocytes % (Manual) Eosinophils % (Manual) Basophils % (Manual) Seg Neutrophils # Seg Neutrophils # Man Lymphocytes # (Manual) Monocytes # (Manual) Eosinophils # (Manual) Nucleated RBC % Basophils # (Manual) PT INR APTT Heparin Anti-Xa Level ABG pH POC ABG pO2 ABG pO2 ABG HCO3 ABG O2 Saturation ABG Base Excess POC ABG pCO2 ABG Hemoglobin ABG Oxyhemoglobin ABG Chloride ABG Glucose Oxyhemoglobin Sodium 146 H Potassium Chloride Carbon Dioxide BUN 28 H Creatinine Glucose 123 H POC Glucose 110 H 152 H Lactic Acid Calcium Phosphorus Magnesium AST ALT Lactate Dehydrogenase Total Bilirubin Direct Bilirubin CK-MB (CK-2) C-Reactive Protein NT-Pro-B Natriuret Pep Total Protein Albumin Arterial Blood Glucose Urine WBC (Auto) Urine Creatinine 12/02/19 12/02/19 12/02/19 12:58 17:58 23:36 WBC RBC Hgb Hct MCHC RDW MCV MCH Lymph % (Auto) [place] % (Auto) [place] # Eos # Lymph # (Auto) [place] # (Auto) Eos # (Auto) Seg Neutrophils % Seg Neuts % (Manual) Baso # (Auto) Lymphocytes % (Manual) Monocytes % (Manual) Eosinophils % (Manual) Basophils % (Manual) Seg Neutrophils # Seg Neutrophils # Man Lymphocytes # (Manual) Monocytes # (Manual) Eosinophils # (Manual) Nucleated RBC % Basophils # (Manual) PT INR APTT Heparin Anti-Xa Level ABG pH POC ABG pO2 78.1 L ABG pO2 ABG HCO3 ABG O2 Saturation ABG Base Excess POC ABG pCO2 ABG Hemoglobin ABG Oxyhemoglobin ABG Chloride ABG Glucose Oxyhemoglobin Sodium Potassium Chloride Carbon Dioxide BUN Creatinine Glucose POC Glucose 120 H 123 H Lactic Acid Calcium Phosphorus Magnesium AST ALT Lactate Dehydrogenase Total Bilirubin Direct Bilirubin CK-MB (CK-2) C-Reactive Protein NT-Pro-B Natriuret Pep Total Protein Albumin Arterial Blood Glucose Urine WBC (Auto) Urine Creatinine 12/03/19 12/03/19 12/03/19 06:03 06:14 11:46 WBC RBC Hgb Hct MCHC RDW MCV MCH Lymph % (Auto) [place] % (Auto) [place] # Eos # Lymph # (Auto) [place] # (Auto) Eos # (Auto) Seg Neutrophils % Seg Neuts % (Manual) Baso # (Auto) Lymphocytes % (Manual) Monocytes % (Manual) Eosinophils % (Manual) Basophils % (Manual) Seg Neutrophils # Seg Neutrophils # Man Lymphocytes # (Manual) Monocytes # (Manual) Eosinophils # (Manual) Nucleated RBC % Basophils # (Manual) PT INR APTT Heparin Anti-Xa Level ABG pH POC ABG pO2 ABG pO2 ABG HCO3 ABG O2 Saturation ABG Base Excess POC ABG pCO2 ABG Hemoglobin ABG Oxyhemoglobin ABG Chloride ABG Glucose Oxyhemoglobin Sodium Potassium Chloride Carbon Dioxide BUN Creatinine Glucose POC Glucose 142 H 130 H Lactic Acid Calcium Phosphorus Magnesium AST ALT Lactate Dehydrogenase Total Bilirubin Direct Bilirubin CK-MB (CK-2) C-Reactive Protein NT-Pro-B Natriuret Pep Total Protein Albumin Arterial Blood Glucose Urine WBC (Auto) 8.0 H Urine Creatinine 12/03/19 12/03/19 12/04/19 15:50 17:39 00:04 WBC RBC Hgb Hct MCHC RDW MCV MCH Lymph % (Auto) [place] % (Auto) [place] # Eos # Lymph # (Auto) [place] # (Auto) Eos # (Auto) Seg Neutrophils % Seg Neuts % (Manual) Baso # (Auto) Lymphocytes % (Manual) Monocytes % (Manual) Eosinophils % (Manual) Basophils % (Manual) Seg Neutrophils # Seg Neutrophils # Man Lymphocytes # (Manual) Monocytes # (Manual) Eosinophils # (Manual) Nucleated RBC % Basophils # (Manual) PT INR APTT Heparin Anti-Xa Level ABG pH POC ABG pO2 ABG pO2 ABG HCO3 ABG O2 Saturation ABG Base Excess POC ABG pCO2 ABG Hemoglobin ABG Oxyhemoglobin ABG Chloride ABG Glucose Oxyhemoglobin Sodium Potassium Chloride Carbon Dioxide BUN Creatinine Glucose POC Glucose 146 H 133 H Lactic Acid Calcium Phosphorus 2.40 L Magnesium AST ALT Lactate Dehydrogenase Total Bilirubin Direct Bilirubin CK-MB (CK-2) C-Reactive Protein NT-Pro-B Natriuret Pep Total Protein Albumin Arterial Blood Glucose Urine WBC (Auto) Urine Creatinine 12/04/19 12/04/19 12/04/19 03:58 03:58 05:22 WBC 12.5 H RBC Hgb 11.2 L Hct 35.2 L MCHC RDW 16.0 H MCV MCH Lymph % (Auto) [place] % (Auto) 9.6 H [place] # 1.2 H Eos # 0.5 H Lymph # (Auto) [place] # (Auto) Eos # (Auto) Seg Neutrophils % Seg Neuts % (Manual) Baso # (Auto) Lymphocytes % (Manual) Monocytes % (Manual) Eosinophils % (Manual) Basophils % (Manual) Seg Neutrophils # 8.6 H Seg Neutrophils # Man Lymphocytes # (Manual) Monocytes # (Manual) Eosinophils # (Manual) Nucleated RBC % Basophils # (Manual) PT INR APTT Heparin Anti-Xa Level ABG pH POC ABG pO2 ABG pO2 ABG HCO3 ABG O2 Saturation ABG Base Excess POC ABG pCO2 ABG Hemoglobin ABG Oxyhemoglobin ABG Chloride ABG Glucose Oxyhemoglobin Sodium 146 H Potassium Chloride 108.6 H Carbon Dioxide BUN 30 H Creatinine 0.7 L Glucose 121 H POC Glucose 132 H Lactic Acid Calcium Phosphorus Magnesium AST ALT Lactate Dehydrogenase Total Bilirubin Direct Bilirubin CK-MB (CK-2) C-Reactive Protein NT-Pro-B Natriuret Pep Total Protein Albumin Arterial Blood Glucose Urine WBC (Auto) Urine Creatinine 12/04/19 12/04/19 12/05/19 13:26 18:43 00:19 WBC RBC Hgb Hct MCHC RDW MCV MCH Lymph % (Auto) [place] % (Auto) [place] # Eos # Lymph # (Auto) [place] # (Auto) Eos # (Auto) Seg Neutrophils % Seg Neuts % (Manual) Baso # (Auto) Lymphocytes % (Manual) Monocytes % (Manual) Eosinophils % (Manual) Basophils % (Manual) Seg Neutrophils # Seg Neutrophils # Man Lymphocytes # (Manual) Monocytes # (Manual) Eosinophils # (Manual) Nucleated RBC % Basophils # (Manual) PT INR APTT Heparin Anti-Xa Level ABG pH POC ABG pO2 ABG pO2 ABG HCO3 ABG O2 Saturation ABG Base Excess POC ABG pCO2 ABG Hemoglobin ABG Oxyhemoglobin ABG Chloride ABG Glucose Oxyhemoglobin Sodium Potassium Chloride Carbon Dioxide BUN Creatinine Glucose POC Glucose 185 H 156 H 150 H Lactic Acid Calcium Phosphorus Magnesium AST ALT Lactate Dehydrogenase Total Bilirubin Direct Bilirubin CK-MB (CK-2) C-Reactive Protein NT-Pro-B Natriuret Pep Total Protein Albumin Arterial Blood Glucose Urine WBC (Auto) Urine Creatinine 12/05/19 12/05/19 12/05/19 03:37 03:37 05:14 WBC 16.3 H RBC Hgb 11.4 L Hct MCHC RDW 15.6 H MCV MCH Lymph % (Auto) 9.9 L [place] % (Auto) 9.7 H [place] # 1.6 H Eos # Lymph # (Auto) [place] # (Auto) Eos # (Auto) Seg Neutrophils % 78.0 H Seg Neuts % (Manual) Baso # (Auto) Lymphocytes % (Manual) Monocytes % (Manual) Eosinophils % (Manual) Basophils % (Manual) Seg Neutrophils # 12.7 H Seg Neutrophils # Man Lymphocytes # (Manual) Monocytes # (Manual) Eosinophils # (Manual) Nucleated RBC % Basophils # (Manual) PT INR APTT Heparin Anti-Xa Level ABG pH POC ABG pO2 ABG pO2 ABG HCO3 ABG O2 Saturation ABG Base Excess POC ABG pCO2 ABG Hemoglobin ABG Oxyhemoglobin ABG Chloride ABG Glucose Oxyhemoglobin Sodium 146 H Potassium Chloride 107.2 H Carbon Dioxide BUN 27 H Creatinine 0.7 L Glucose 171 H POC Glucose 168 H Lactic Acid Calcium Phosphorus Magnesium AST ALT Lactate Dehydrogenase Total Bilirubin Direct Bilirubin CK-MB (CK-2) C-Reactive Protein NT-Pro-B Natriuret Pep Total Protein Albumin Arterial Blood Glucose Urine WBC (Auto) Urine Creatinine 12/05/19 12/05/19 12/05/19 12:31 18:10 23:58 WBC RBC Hgb Hct MCHC RDW MCV MCH Lymph % (Auto) [place] % (Auto) [place] # Eos # Lymph # (Auto) [place] # (Auto) Eos # (Auto) Seg Neutrophils % Seg Neuts % (Manual) Baso # (Auto) Lymphocytes % (Manual) Monocytes % (Manual) Eosinophils % (Manual) Basophils % (Manual) Seg Neutrophils # Seg Neutrophils # Man Lymphocytes # (Manual) Monocytes # (Manual) Eosinophils # (Manual) Nucleated RBC % Basophils # (Manual) PT INR APTT Heparin Anti-Xa Level ABG pH POC ABG pO2 ABG pO2 ABG HCO3 ABG O2 Saturation ABG Base Excess POC ABG pCO2 ABG Hemoglobin ABG Oxyhemoglobin ABG Chloride ABG Glucose Oxyhemoglobin Sodium Potassium Chloride Carbon Dioxide BUN Creatinine Glucose POC Glucose 159 H 198 H 115 H Lactic Acid Calcium Phosphorus Magnesium AST ALT Lactate Dehydrogenase Total Bilirubin Direct Bilirubin CK-MB (CK-2) C-Reactive Protein NT-Pro-B Natriuret Pep Total Protein Albumin Arterial Blood Glucose Urine WBC (Auto) Urine Creatinine 12/06/19 12/06/19 12/06/19 05:24 05:24 05:25 WBC 14.9 H RBC Hgb 10.8 L Hct 34.0 L MCHC RDW 15.6 H MCV MCH Lymph % (Auto) 10.7 L [place] % (Auto) 8.3 H [place] # 1.2 H Eos # Lymph # (Auto) [place] # (Auto) Eos # (Auto) Seg Neutrophils % 78.7 H Seg Neuts % (Manual) Baso # (Auto) Lymphocytes % (Manual) Monocytes % (Manual) Eosinophils % (Manual) Basophils % (Manual) Seg Neutrophils # 11.7 H Seg Neutrophils # Man Lymphocytes # (Manual) Monocytes # (Manual) Eosinophils # (Manual) Nucleated RBC % Basophils # (Manual) PT INR APTT Heparin Anti-Xa Level ABG pH POC ABG pO2 ABG pO2 ABG HCO3 ABG O2 Saturation ABG Base Excess POC ABG pCO2 ABG Hemoglobin ABG Oxyhemoglobin ABG Chloride ABG Glucose Oxyhemoglobin Sodium 148 H Potassium 5.1 H Chloride 107.6 H Carbon Dioxide BUN 27 H Creatinine 0.7 L Glucose 155 H POC Glucose 157 H Lactic Acid Calcium Phosphorus Magnesium AST ALT Lactate Dehydrogenase Total Bilirubin Direct Bilirubin CK-MB (CK-2) C-Reactive Protein NT-Pro-B Natriuret Pep Total Protein Albumin Arterial Blood Glucose Urine WBC (Auto) Urine Creatinine 12/07/19 12/07/19 12/07/19 00:13 05:34 11:33 WBC RBC Hgb Hct MCHC RDW MCV MCH Lymph % (Auto) [place] % (Auto) [place] # Eos # Lymph # (Auto) [place] # (Auto) Eos # (Auto) Seg Neutrophils % Seg Neuts % (Manual) Baso # (Auto) Lymphocytes % (Manual) Monocytes % (Manual) Eosinophils % (Manual) Basophils % (Manual) Seg Neutrophils # Seg Neutrophils # Man Lymphocytes # (Manual) Monocytes # (Manual) Eosinophils # (Manual) Nucleated RBC % Basophils # (Manual) PT INR APTT Heparin Anti-Xa Level ABG pH POC ABG pO2 ABG pO2 ABG HCO3 ABG O2 Saturation ABG Base Excess POC ABG pCO2 ABG Hemoglobin ABG Oxyhemoglobin ABG Chloride ABG Glucose Oxyhemoglobin Sodium Potassium Chloride Carbon Dioxide BUN Creatinine Glucose POC Glucose 142 H 111 H 169 H Lactic Acid Calcium Phosphorus Magnesium AST ALT Lactate Dehydrogenase Total Bilirubin Direct Bilirubin CK-MB (CK-2) C-Reactive Protein NT-Pro-B Natriuret Pep Total Protein Albumin Arterial Blood Glucose Urine WBC (Auto) Urine Creatinine 12/07/19 12/07/19 12/07/19 12:41 13:25 18:19 WBC 12.4 H RBC 3.53 L Hgb 10.2 L Hct 32.1 L MCHC RDW 15.3 H MCV MCH Lymph % (Auto) 10.6 L [place] % (Auto) 7.8 H [place] # 1.0 H Eos # Lymph # (Auto) [place] # (Auto) Eos # (Auto) Seg Neutrophils % 77.6 H Seg Neuts % (Manual) Baso # (Auto) Lymphocytes % (Manual) Monocytes % (Manual) Eosinophils % (Manual) Basophils % (Manual) Seg Neutrophils # 9.6 H Seg Neutrophils # Man Lymphocytes # (Manual) Monocytes # (Manual) Eosinophils # (Manual) Nucleated RBC % Basophils # (Manual) PT INR APTT Heparin Anti-Xa Level ABG pH POC ABG pO2 ABG pO2 ABG HCO3 ABG O2 Saturation ABG Base Excess POC ABG pCO2 ABG Hemoglobin ABG Oxyhemoglobin ABG Chloride ABG Glucose Oxyhemoglobin Sodium 149 H Potassium Chloride 108.4 H Carbon Dioxide BUN 26 H Creatinine 0.6 L Glucose 149 H POC Glucose 164 H Lactic Acid Calcium Phosphorus Magnesium 2.60 H AST 121 H ALT 145 H Lactate Dehydrogenase Total Bilirubin Direct Bilirubin CK-MB (CK-2) C-Reactive Protein NT-Pro-B Natriuret Pep Total Protein Albumin 2.6 L Arterial Blood Glucose Urine WBC (Auto) Urine Creatinine 12/07/19 12/08/19 12/08/19 22:25 00:02 03:55 WBC 13.3 H RBC 3.40 L Hgb 9.7 L Hct 30.8 L MCHC 31 L RDW 15.5 H MCV MCH Lymph % (Auto) [place] % (Auto) 8.1 H [place] # 1.1 H Eos # Lymph # (Auto) [place] # (Auto) Eos # (Auto) Seg Neutrophils % 73.0 H Seg Neuts % (Manual) Baso # (Auto) Lymphocytes % (Manual) Monocytes % (Manual) Eosinophils % (Manual) Basophils % (Manual) Seg Neutrophils # 9.7 H Seg Neutrophils # Man Lymphocytes # (Manual) Monocytes # (Manual) Eosinophils # (Manual) Nucleated RBC % Basophils # (Manual) PT INR APTT Heparin Anti-Xa Level 0.12 L ABG pH POC ABG pO2 ABG pO2 ABG HCO3 ABG O2 Saturation ABG Base Excess POC ABG pCO2 ABG Hemoglobin ABG Oxyhemoglobin ABG Chloride ABG Glucose Oxyhemoglobin Sodium Potassium Chloride Carbon Dioxide BUN Creatinine Glucose POC Glucose 151 H Lactic Acid Calcium Phosphorus Magnesium AST ALT Lactate Dehydrogenase Total Bilirubin Direct Bilirubin CK-MB (CK-2) C-Reactive Protein NT-Pro-B Natriuret Pep Total Protein Albumin Arterial Blood Glucose Urine WBC (Auto) Urine Creatinine 12/08/19 12/08/19 12/08/19 03:55 05:21 06:01 WBC RBC Hgb Hct MCHC RDW MCV MCH Lymph % (Auto) [place] % (Auto) [place] # Eos # Lymph # (Auto) [place] # (Auto) Eos # (Auto) Seg Neutrophils % Seg Neuts % (Manual) Baso # (Auto) Lymphocytes % (Manual) Monocytes % (Manual) Eosinophils % (Manual) Basophils % (Manual) Seg Neutrophils # Seg Neutrophils # Man Lymphocytes # (Manual) Monocytes # (Manual) Eosinophils # (Manual) Nucleated RBC % Basophils # (Manual) PT INR APTT Heparin Anti-Xa Level 0.20 L ABG pH POC ABG pO2 ABG pO2 ABG HCO3 ABG O2 Saturation ABG Base Excess POC ABG pCO2 ABG Hemoglobin ABG Oxyhemoglobin ABG Chloride ABG Glucose Oxyhemoglobin Sodium 149 H Potassium Chloride 108.0 H Carbon Dioxide BUN 28 H Creatinine 0.6 L Glucose 144 H POC Glucose 143 H Lactic Acid Calcium Phosphorus Magnesium AST 98 H ALT 145 H Lactate Dehydrogenase Total Bilirubin Direct Bilirubin CK-MB (CK-2) C-Reactive Protein NT-Pro-B Natriuret Pep Total Protein 6.0 L Albumin 2.4 L Arterial Blood Glucose Urine WBC (Auto) Urine Creatinine 12/08/19 12/08/19 12/08/19 12:08 18:11 23:53 WBC RBC Hgb Hct MCHC RDW MCV MCH Lymph % (Auto) [place] % (Auto) [place] # Eos # Lymph # (Auto) [place] # (Auto) Eos # (Auto) Seg Neutrophils % Seg Neuts % (Manual) Baso # (Auto) Lymphocytes % (Manual) Monocytes % (Manual) Eosinophils % (Manual) Basophils % (Manual) Seg Neutrophils # Seg Neutrophils # Man Lymphocytes # (Manual) Monocytes # (Manual) Eosinophils # (Manual) Nucleated RBC % Basophils # (Manual) PT INR APTT Heparin Anti-Xa Level ABG pH POC ABG pO2 ABG pO2 ABG HCO3 ABG O2 Saturation ABG Base Excess POC ABG pCO2 ABG Hemoglobin ABG Oxyhemoglobin ABG Chloride ABG Glucose Oxyhemoglobin Sodium Potassium Chloride Carbon Dioxide BUN Creatinine Glucose POC Glucose 172 H 122 H 162 H Lactic Acid Calcium Phosphorus Magnesium AST ALT Lactate Dehydrogenase Total Bilirubin Direct Bilirubin CK-MB (CK-2) C-Reactive Protein NT-Pro-B Natriuret Pep Total Protein Albumin Arterial Blood Glucose Urine WBC (Auto) Urine Creatinine 12/09/19 12/09/19 12/09/19 04:03 04:03 05:53 WBC RBC Hgb 9.1 L Hct 28.9 L MCHC RDW MCV MCH Lymph % (Auto) [place] % (Auto) [place] # Eos # Lymph # (Auto) [place] # (Auto) Eos # (Auto) Seg Neutrophils % Seg Neuts % (Manual) Baso # (Auto) Lymphocytes % (Manual) Monocytes % (Manual) Eosinophils % (Manual) Basophils % (Manual) Seg Neutrophils # Seg Neutrophils # Man Lymphocytes # (Manual) Monocytes # (Manual) Eosinophils # (Manual) Nucleated RBC % Basophils # (Manual) PT INR APTT Heparin Anti-Xa Level 0.15 L ABG pH POC ABG pO2 ABG pO2 ABG HCO3 ABG O2 Saturation ABG Base Excess POC ABG pCO2 ABG Hemoglobin ABG Oxyhemoglobin ABG Chloride ABG Glucose Oxyhemoglobin Sodium Potassium Chloride Carbon Dioxide BUN Creatinine Glucose POC Glucose 124 H Lactic Acid Calcium Phosphorus Magnesium AST ALT Lactate Dehydrogenase Total Bilirubin Direct Bilirubin CK-MB (CK-2) C-Reactive Protein NT-Pro-B Natriuret Pep Total Protein Albumin Arterial Blood Glucose Urine WBC (Auto) Urine Creatinine 12/09/19 12/09/19 12/10/19 09:43 12:41 00:13 WBC RBC Hgb Hct MCHC RDW MCV MCH Lymph % (Auto) [place] % (Auto) [place] # Eos # Lymph # (Auto) [place] # (Auto) Eos # (Auto) Seg Neutrophils % Seg Neuts % (Manual) Baso # (Auto) Lymphocytes % (Manual) Monocytes % (Manual) Eosinophils % (Manual) Basophils % (Manual) Seg Neutrophils # Seg Neutrophils # Man Lymphocytes # (Manual) Monocytes # (Manual) Eosinophils # (Manual) Nucleated RBC % Basophils # (Manual) PT INR APTT Heparin Anti-Xa Level ABG pH POC ABG pO2 ABG pO2 ABG HCO3 ABG O2 Saturation ABG Base Excess POC ABG pCO2 ABG Hemoglobin ABG Oxyhemoglobin ABG Chloride ABG Glucose Oxyhemoglobin Sodium Potassium Chloride Carbon Dioxide BUN 25 H Creatinine 0.6 L Glucose 131 H POC Glucose 109 H 120 H Lactic Acid Calcium Phosphorus Magnesium AST ALT Lactate Dehydrogenase Total Bilirubin Direct Bilirubin CK-MB (CK-2) C-Reactive Protein NT-Pro-B Natriuret Pep Total Protein Albumin Arterial Blood Glucose Urine WBC (Auto) Urine Creatinine 12/10/19 12/10/19 12/10/19 04:14 04:14 12:00 WBC 13.3 H RBC 3.34 L Hgb 9.6 L Hct 30.4 L MCHC RDW 15.4 H MCV MCH Lymph % (Auto) [place] % (Auto) [place] # Eos # Lymph # (Auto) [place] # (Auto) Eos # (Auto) Seg Neutrophils % Seg Neuts % (Manual) 75.0 H Baso # (Auto) Lymphocytes % (Manual) 13.0 L Monocytes % (Manual) 8.0 H Eosinophils % (Manual) Basophils % (Manual) 2.0 H Seg Neutrophils # Seg Neutrophils # Man 10.0 H Lymphocytes # (Manual) Monocytes # (Manual) 1.1 H Eosinophils # (Manual) Nucleated RBC % Basophils # (Manual) 0.3 H PT INR APTT Heparin Anti-Xa Level ABG pH POC ABG pO2 ABG pO2 ABG HCO3 ABG O2 Saturation ABG Base Excess POC ABG pCO2 ABG Hemoglobin ABG Oxyhemoglobin ABG Chloride ABG Glucose Oxyhemoglobin Sodium 147 H Potassium Chloride 108.3 H Carbon Dioxide BUN 21 H Creatinine 0.6 L Glucose 104 H POC Glucose 133 H Lactic Acid Calcium Phosphorus Magnesium AST ALT Lactate Dehydrogenase Total Bilirubin Direct Bilirubin CK-MB (CK-2) C-Reactive Protein NT-Pro-B Natriuret Pep Total Protein Albumin Arterial Blood Glucose Urine WBC (Auto) Urine Creatinine 12/10/19 12/10/19 12/11/19 18:44 21:20 00:08 WBC 14.9 H RBC 3.36 L Hgb 9.6 L Hct 30.5 L MCHC RDW 15.4 H MCV MCH Lymph % (Auto) [place] % (Auto) [place] # Eos # Lymph # (Auto) [place] # (Auto) Eos # (Auto) Seg Neutrophils % Seg Neuts % (Manual) Baso # (Auto) Lymphocytes % (Manual) Monocytes % (Manual) Eosinophils % (Manual) Basophils % (Manual) Seg Neutrophils # Seg Neutrophils # Man Lymphocytes # (Manual) Monocytes # (Manual) Eosinophils # (Manual) Nucleated RBC % Basophils # (Manual) PT INR APTT Heparin Anti-Xa Level ABG pH POC ABG pO2 ABG pO2 ABG HCO3 ABG O2 Saturation ABG Base Excess POC ABG pCO2 ABG Hemoglobin ABG Oxyhemoglobin ABG Chloride ABG Glucose Oxyhemoglobin Sodium Potassium Chloride Carbon Dioxide BUN Creatinine Glucose POC Glucose 119 H 134 H Lactic Acid Calcium Phosphorus Magnesium AST ALT Lactate Dehydrogenase Total Bilirubin Direct Bilirubin CK-MB (CK-2) C-Reactive Protein NT-Pro-B Natriuret Pep Total Protein Albumin Arterial Blood Glucose Urine WBC (Auto) Urine Creatinine 12/11/19 12/11/19 12/11/19 03:54 07:28 08:36 WBC 11.9 H RBC 3.25 L Hgb 9.6 L Hct 29.2 L MCHC RDW 15.7 H MCV MCH Lymph % (Auto) [place] % (Auto) [place] # Eos # Lymph # (Auto) [place] # (Auto) Eos # (Auto) Seg Neutrophils % Seg Neuts % (Manual) Baso # (Auto) Lymphocytes % (Manual) Monocytes % (Manual) Eosinophils % (Manual) Basophils % (Manual) Seg Neutrophils # Seg Neutrophils # Man Lymphocytes # (Manual) Monocytes # (Manual) Eosinophils # (Manual) Nucleated RBC % Basophils # (Manual) PT INR APTT Heparin Anti-Xa Level 0.10 L 0.16 L ABG pH POC ABG pO2 ABG pO2 ABG HCO3 ABG O2 Saturation ABG Base Excess POC ABG pCO2 ABG Hemoglobin ABG Oxyhemoglobin ABG Chloride ABG Glucose Oxyhemoglobin Sodium Potassium Chloride Carbon Dioxide BUN Creatinine Glucose POC Glucose Lactic Acid Calcium Phosphorus Magnesium AST ALT Lactate Dehydrogenase Total Bilirubin Direct Bilirubin CK-MB (CK-2) C-Reactive Protein NT-Pro-B Natriuret Pep Total Protein Albumin Arterial Blood Glucose Urine WBC (Auto) Urine Creatinine 12/11/19 12/11/19 12/11/19 08:36 11:45 17:15 WBC RBC Hgb Hct MCHC RDW MCV MCH Lymph % (Auto) [place] % (Auto) [place] # Eos # Lymph # (Auto) [place] # (Auto) Eos # (Auto) Seg Neutrophils % Seg Neuts % (Manual) Baso # (Auto) Lymphocytes % (Manual) Monocytes % (Manual) Eosinophils % (Manual) Basophils % (Manual) Seg Neutrophils # Seg Neutrophils # Man Lymphocytes # (Manual) Monocytes # (Manual) Eosinophils # (Manual) Nucleated RBC % Basophils # (Manual) PT INR APTT Heparin Anti-Xa Level ABG pH POC ABG pO2 ABG pO2 ABG HCO3 ABG O2 Saturation ABG Base Excess POC ABG pCO2 ABG Hemoglobin ABG Oxyhemoglobin ABG Chloride ABG Glucose Oxyhemoglobin Sodium Potassium Chloride Carbon Dioxide BUN Creatinine 0.5 L Glucose 128 H POC Glucose 136 H 109 H Lactic Acid Calcium Phosphorus Magnesium AST ALT Lactate Dehydrogenase Total Bilirubin Direct Bilirubin CK-MB (CK-2) C-Reactive Protein NT-Pro-B Natriuret Pep Total Protein Albumin Arterial Blood Glucose Urine WBC (Auto) Urine Creatinine 12/12/19 12/12/19 12/12/19 00:03 05:53 05:53 WBC RBC Hgb 8.8 L Hct 27.6 L MCHC RDW MCV MCH Lymph % (Auto) [place] % (Auto) [place] # Eos # Lymph # (Auto) [place] # (Auto) Eos # (Auto) Seg Neutrophils % Seg Neuts % (Manual) Baso # (Auto) Lymphocytes % (Manual) Monocytes % (Manual) Eosinophils % (Manual) Basophils % (Manual) Seg Neutrophils # Seg Neutrophils # Man Lymphocytes # (Manual) Monocytes # (Manual) Eosinophils # (Manual) Nucleated RBC % Basophils # (Manual) PT INR APTT Heparin Anti-Xa Level 0.22 L ABG pH POC ABG pO2 ABG pO2 ABG HCO3 ABG O2 Saturation ABG Base Excess POC ABG pCO2 ABG Hemoglobin ABG Oxyhemoglobin ABG Chloride ABG Glucose Oxyhemoglobin Sodium Potassium Chloride Carbon Dioxide BUN Creatinine Glucose POC Glucose 116 H Lactic Acid Calcium Phosphorus Magnesium AST ALT Lactate Dehydrogenase Total Bilirubin Direct Bilirubin CK-MB (CK-2) C-Reactive Protein NT-Pro-B Natriuret Pep Total Protein Albumin Arterial Blood Glucose Urine WBC (Auto) Urine Creatinine 12/12/19 12/12/19 12/12/19 09:38 12:18 17:44 WBC RBC Hgb Hct MCHC RDW MCV MCH Lymph % (Auto) [place] % (Auto) [place] # Eos # Lymph # (Auto) [place] # (Auto) Eos # (Auto) Seg Neutrophils % Seg Neuts % (Manual) Baso # (Auto) Lymphocytes % (Manual) Monocytes % (Manual) Eosinophils % (Manual) Basophils % (Manual) Seg Neutrophils # Seg Neutrophils # Man Lymphocytes # (Manual) Monocytes # (Manual) Eosinophils # (Manual) Nucleated RBC % Basophils # (Manual) PT INR APTT Heparin Anti-Xa Level ABG pH POC ABG pO2 ABG pO2 ABG HCO3 ABG O2 Saturation ABG Base Excess POC ABG pCO2 ABG Hemoglobin ABG Oxyhemoglobin ABG Chloride ABG Glucose Oxyhemoglobin Sodium Potassium Chloride Carbon Dioxide BUN Creatinine Glucose POC Glucose 115 H 146 H 146 H Lactic Acid Calcium Phosphorus Magnesium AST ALT Lactate Dehydrogenase Total Bilirubin Direct Bilirubin CK-MB (CK-2) C-Reactive Protein NT-Pro-B Natriuret Pep Total Protein Albumin Arterial Blood Glucose Urine WBC (Auto) Urine Creatinine 12/12/19 12/13/19 12/13/19 23:33 05:32 05:32 WBC 13.1 H RBC 3.27 L Hgb 9.5 L Hct 29.3 L MCHC RDW 15.6 H MCV MCH Lymph % (Auto) [place] % (Auto) [place] # Eos # Lymph # (Auto) [place] # (Auto) Eos # (Auto) Seg Neutrophils % Seg Neuts % (Manual) 74.0 H Baso # (Auto) Lymphocytes % (Manual) 8.0 L Monocytes % (Manual) 9.0 H Eosinophils % (Manual) 5.0 H Basophils % (Manual) Seg Neutrophils # Seg Neutrophils # Man 9.7 H Lymphocytes # (Manual) 1.0 L Monocytes # (Manual) 1.2 H Eosinophils # (Manual) 0.7 H Nucleated RBC % Basophils # (Manual) PT INR APTT Heparin Anti-Xa Level 0.20 L ABG pH POC ABG pO2 ABG pO2 ABG HCO3 ABG O2 Saturation ABG Base Excess POC ABG pCO2 ABG Hemoglobin ABG Oxyhemoglobin ABG Chloride ABG Glucose Oxyhemoglobin Sodium Potassium Chloride Carbon Dioxide BUN Creatinine Glucose POC Glucose 126 H Lactic Acid Calcium Phosphorus Magnesium AST ALT Lactate Dehydrogenase Total Bilirubin Direct Bilirubin CK-MB (CK-2) C-Reactive Protein NT-Pro-B Natriuret Pep Total Protein Albumin Arterial Blood Glucose Urine WBC (Auto) Urine Creatinine 12/13/19 12/13/19 12/13/19 05:32 05:46 11:57 WBC RBC Hgb Hct MCHC RDW MCV MCH Lymph % (Auto) [place] % (Auto) [place] # Eos # Lymph # (Auto) [place] # (Auto) Eos # (Auto) Seg Neutrophils % Seg Neuts % (Manual) Baso # (Auto) Lymphocytes % (Manual) Monocytes % (Manual) Eosinophils % (Manual) Basophils % (Manual) Seg Neutrophils # Seg Neutrophils # Man Lymphocytes # (Manual) Monocytes # (Manual) Eosinophils # (Manual) Nucleated RBC % Basophils # (Manual) PT INR APTT Heparin Anti-Xa Level ABG pH POC ABG pO2 ABG pO2 ABG HCO3 ABG O2 Saturation ABG Base Excess POC ABG pCO2 ABG Hemoglobin ABG Oxyhemoglobin ABG Chloride ABG Glucose Oxyhemoglobin Sodium Potassium Chloride Carbon Dioxide 31 H BUN Creatinine 0.6 L Glucose 114 H POC Glucose 118 H 133 H Lactic Acid Calcium Phosphorus Magnesium AST ALT Lactate Dehydrogenase Total Bilirubin Direct Bilirubin CK-MB (CK-2) C-Reactive Protein NT-Pro-B Natriuret Pep Total Protein Albumin Arterial Blood Glucose Urine WBC (Auto) Urine Creatinine 12/13/19 12/13/19 12/14/19 17:44 23:46 05:32 WBC RBC Hgb Hct MCHC RDW MCV MCH Lymph % (Auto) [place] % (Auto) [place] # Eos # Lymph # (Auto) [place] # (Auto) Eos # (Auto) Seg Neutrophils % Seg Neuts % (Manual) Baso # (Auto) Lymphocytes % (Manual) Monocytes % (Manual) Eosinophils % (Manual) Basophils % (Manual) Seg Neutrophils # Seg Neutrophils # Man Lymphocytes # (Manual) Monocytes # (Manual) Eosinophils # (Manual) Nucleated RBC % Basophils # (Manual) PT INR APTT Heparin Anti-Xa Level ABG pH POC ABG pO2 ABG pO2 ABG HCO3 ABG O2 Saturation ABG Base Excess POC ABG pCO2 ABG Hemoglobin ABG Oxyhemoglobin ABG Chloride ABG Glucose Oxyhemoglobin Sodium Potassium Chloride Carbon Dioxide BUN Creatinine Glucose POC Glucose 161 H 126 H 139 H Lactic Acid Calcium Phosphorus Magnesium AST ALT Lactate Dehydrogenase Total Bilirubin Direct Bilirubin CK-MB (CK-2) C-Reactive Protein NT-Pro-B Natriuret Pep Total Protein Albumin Arterial Blood Glucose Urine WBC (Auto) Urine Creatinine 12/14/19 12/14/19 12/14/19 06:03 06:03 09:37 WBC RBC Hgb 9.6 L Hct 30.4 L MCHC RDW MCV MCH Lymph % (Auto) [place] % (Auto) [place] # Eos # Lymph # (Auto) [place] # (Auto) Eos # (Auto) Seg Neutrophils % Seg Neuts % (Manual) Baso # (Auto) Lymphocytes % (Manual) Monocytes % (Manual) Eosinophils % (Manual) Basophils % (Manual) Seg Neutrophils # Seg Neutrophils # Man Lymphocytes # (Manual) Monocytes # (Manual) Eosinophils # (Manual) Nucleated RBC % Basophils # (Manual) PT INR APTT Heparin Anti-Xa Level 0.24 L ABG pH POC ABG pO2 ABG pO2 ABG HCO3 ABG O2 Saturation ABG Base Excess POC ABG pCO2 ABG Hemoglobin ABG Oxyhemoglobin ABG Chloride ABG Glucose Oxyhemoglobin Sodium Potassium Chloride Carbon Dioxide BUN Creatinine 0.6 L Glucose 162 H POC Glucose Lactic Acid Calcium Phosphorus Magnesium AST 71 H ALT 118 H Lactate Dehydrogenase Total Bilirubin Direct Bilirubin CK-MB (CK-2) C-Reactive Protein NT-Pro-B Natriuret Pep Total Protein 6.2 L Albumin 2.3 L Arterial Blood Glucose Urine WBC (Auto) Urine Creatinine 12/14/19 12/14/19 12/15/19 12:06 18:18 00:19 WBC RBC Hgb Hct MCHC RDW MCV MCH Lymph % (Auto) [place] % (Auto) [place] # Eos # Lymph # (Auto) [place] # (Auto) Eos # (Auto) Seg Neutrophils % Seg Neuts % (Manual) Baso # (Auto) Lymphocytes % (Manual) Monocytes % (Manual) Eosinophils % (Manual) Basophils % (Manual) Seg Neutrophils # Seg Neutrophils # Man Lymphocytes # (Manual) Monocytes # (Manual) Eosinophils # (Manual) Nucleated RBC % Basophils # (Manual) PT INR APTT Heparin Anti-Xa Level ABG pH POC ABG pO2 ABG pO2 ABG HCO3 ABG O2 Saturation ABG Base Excess POC ABG pCO2 ABG Hemoglobin ABG Oxyhemoglobin ABG Chloride ABG Glucose Oxyhemoglobin Sodium Potassium Chloride Carbon Dioxide BUN Creatinine Glucose POC Glucose 147 H 166 H 123 H Lactic Acid Calcium Phosphorus Magnesium AST ALT Lactate Dehydrogenase Total Bilirubin Direct Bilirubin CK-MB (CK-2) C-Reactive Protein NT-Pro-B Natriuret Pep Total Protein Albumin Arterial Blood Glucose Urine WBC (Auto) Urine Creatinine 12/15/19 12/15/19 12/15/19 05:28 05:29 05:29 WBC 14.9 H RBC 3.19 L Hgb 9.1 L Hct 28.7 L MCHC RDW 16.0 H MCV MCH Lymph % (Auto) [place] % (Auto) [place] # Eos # Lymph # (Auto) [place] # (Auto) Eos # (Auto) Seg Neutrophils % Seg Neuts % (Manual) Baso # (Auto) Lymphocytes % (Manual) Monocytes % (Manual) Eosinophils % (Manual) Basophils % (Manual) Seg Neutrophils # Seg Neutrophils # Man Lymphocytes # (Manual) Monocytes # (Manual) Eosinophils # (Manual) Nucleated RBC % Basophils # (Manual) PT INR APTT Heparin Anti-Xa Level 0.19 L ABG pH POC ABG pO2 ABG pO2 ABG HCO3 ABG O2 Saturation ABG Base Excess POC ABG pCO2 ABG Hemoglobin ABG Oxyhemoglobin ABG Chloride ABG Glucose Oxyhemoglobin Sodium Potassium Chloride Carbon Dioxide BUN Creatinine 0.6 L Glucose 110 H POC Glucose Lactic Acid Calcium Phosphorus Magnesium AST ALT Lactate Dehydrogenase Total Bilirubin Direct Bilirubin CK-MB (CK-2) C-Reactive Protein NT-Pro-B Natriuret Pep Total Protein Albumin Arterial Blood Glucose Urine WBC (Auto) Urine Creatinine 12/15/19 12/15/19 12/15/19 05:53 11:50 17:26 WBC RBC Hgb Hct MCHC RDW MCV MCH Lymph % (Auto) [place] % (Auto) [place] # Eos # Lymph # (Auto) [place] # (Auto) Eos # (Auto) Seg Neutrophils % Seg Neuts % (Manual) Baso # (Auto) Lymphocytes % (Manual) Monocytes % (Manual) Eosinophils % (Manual) Basophils % (Manual) Seg Neutrophils # Seg Neutrophils # Man Lymphocytes # (Manual) Monocytes # (Manual) Eosinophils # (Manual) Nucleated RBC % Basophils # (Manual) PT INR APTT Heparin Anti-Xa Level ABG pH POC ABG pO2 ABG pO2 ABG HCO3 ABG O2 Saturation ABG Base Excess POC ABG pCO2 ABG Hemoglobin ABG Oxyhemoglobin ABG Chloride ABG Glucose Oxyhemoglobin Sodium Potassium Chloride Carbon Dioxide BUN Creatinine Glucose POC Glucose 119 H 132 H 128 H Lactic Acid Calcium Phosphorus Magnesium AST ALT Lactate Dehydrogenase Total Bilirubin Direct Bilirubin CK-MB (CK-2) C-Reactive Protein NT-Pro-B Natriuret Pep Total Protein Albumin Arterial Blood Glucose Urine WBC (Auto) Urine Creatinine 12/15/19 12/16/19 12/16/19 23:11 05:30 05:46 WBC RBC Hgb 8.8 L Hct 27.9 L MCHC RDW MCV MCH Lymph % (Auto) [place] % (Auto) [place] # Eos # Lymph # (Auto) [place] # (Auto) Eos # (Auto) Seg Neutrophils % Seg Neuts % (Manual) Baso # (Auto) Lymphocytes % (Manual) Monocytes % (Manual) Eosinophils % (Manual) Basophils % (Manual) Seg Neutrophils # Seg Neutrophils # Man Lymphocytes # (Manual) Monocytes # (Manual) Eosinophils # (Manual) Nucleated RBC % Basophils # (Manual) PT INR APTT Heparin Anti-Xa Level ABG pH POC ABG pO2 ABG pO2 ABG HCO3 ABG O2 Saturation ABG Base Excess POC ABG pCO2 ABG Hemoglobin ABG Oxyhemoglobin ABG Chloride ABG Glucose Oxyhemoglobin Sodium Potassium Chloride Carbon Dioxide BUN Creatinine Glucose POC Glucose 150 H 134 H Lactic Acid Calcium Phosphorus Magnesium AST ALT Lactate Dehydrogenase Total Bilirubin Direct Bilirubin CK-MB (CK-2) C-Reactive Protein NT-Pro-B Natriuret Pep Total Protein Albumin Arterial Blood Glucose Urine WBC (Auto) Urine Creatinine 12/16/19 12/16/19 12/16/19 05:46 05:46 11:44 WBC RBC Hgb Hct MCHC RDW MCV MCH Lymph % (Auto) [place] % (Auto) [place] # Eos # Lymph # (Auto) [place] # (Auto) Eos # (Auto) Seg Neutrophils % Seg Neuts % (Manual) Baso # (Auto) Lymphocytes % (Manual) Monocytes % (Manual) Eosinophils % (Manual) Basophils % (Manual) Seg Neutrophils # Seg Neutrophils # Man Lymphocytes # (Manual) Monocytes # (Manual) Eosinophils # (Manual) Nucleated RBC % Basophils # (Manual) PT INR APTT Heparin Anti-Xa Level 0.20 L ABG pH POC ABG pO2 ABG pO2 ABG HCO3 ABG O2 Saturation ABG Base Excess POC ABG pCO2 ABG Hemoglobin ABG Oxyhemoglobin ABG Chloride ABG Glucose Oxyhemoglobin Sodium Potassium Chloride Carbon Dioxide 31 H BUN Creatinine 0.5 L Glucose 147 H POC Glucose 164 H Lactic Acid Calcium Phosphorus Magnesium AST ALT Lactate Dehydrogenase Total Bilirubin Direct Bilirubin CK-MB (CK-2) C-Reactive Protein NT-Pro-B Natriuret Pep Total Protein Albumin Arterial Blood Glucose Urine WBC (Auto) Urine Creatinine 12/16/19 12/16/19 12/17/19 17:17 23:49 05:30 WBC 13.9 H RBC 3.27 L Hgb 9.4 L Hct 29.2 L MCHC RDW 16.0 H MCV MCH Lymph % (Auto) [place] % (Auto) 8.8 H [place] # Eos # Lymph # (Auto) [place] # (Auto) 1.2 H Eos # (Auto) 0.5 H Seg Neutrophils % 70.5 H Seg Neuts % (Manual) Baso # (Auto) 0.2 H Lymphocytes % (Manual) Monocytes % (Manual) Eosinophils % (Manual) Basophils % (Manual) Seg Neutrophils # 9.8 H Seg Neutrophils # Man Lymphocytes # (Manual) Monocytes # (Manual) Eosinophils # (Manual) Nucleated RBC % Basophils # (Manual) PT INR APTT Heparin Anti-Xa Level ABG pH POC ABG pO2 ABG pO2 ABG HCO3 ABG O2 Saturation ABG Base Excess POC ABG pCO2 ABG Hemoglobin ABG Oxyhemoglobin ABG Chloride ABG Glucose Oxyhemoglobin Sodium Potassium Chloride Carbon Dioxide BUN Creatinine Glucose POC Glucose 162 H 144 H Lactic Acid Calcium Phosphorus Magnesium AST ALT Lactate Dehydrogenase Total Bilirubin Direct Bilirubin CK-MB (CK-2) C-Reactive Protein NT-Pro-B Natriuret Pep Total Protein Albumin Arterial Blood Glucose Urine WBC (Auto) Urine Creatinine 12/17/19 12/17/19 12/17/19 05:30 06:06 11:50 WBC RBC Hgb Hct MCHC RDW MCV MCH Lymph % (Auto) [place] % (Auto) [place] # Eos # Lymph # (Auto) [place] # (Auto) Eos # (Auto) Seg Neutrophils % Seg Neuts % (Manual) Baso # (Auto) Lymphocytes % (Manual) Monocytes % (Manual) Eosinophils % (Manual) Basophils % (Manual) Seg Neutrophils # Seg Neutrophils # Man Lymphocytes # (Manual) Monocytes # (Manual) Eosinophils # (Manual) Nucleated RBC % Basophils # (Manual) PT INR APTT Heparin Anti-Xa Level ABG pH POC ABG pO2 ABG pO2 ABG HCO3 ABG O2 Saturation ABG Base Excess POC ABG pCO2 ABG Hemoglobin ABG Oxyhemoglobin ABG Chloride ABG Glucose Oxyhemoglobin Sodium Potassium Chloride 97.4 L Carbon Dioxide 32 H BUN Creatinine 0.5 L Glucose 135 H POC Glucose 151 H 140 H Lactic Acid Calcium Phosphorus Magnesium AST ALT Lactate Dehydrogenase Total Bilirubin Direct Bilirubin CK-MB (CK-2) C-Reactive Protein NT-Pro-B Natriuret Pep Total Protein Albumin Arterial Blood Glucose Urine WBC (Auto) Urine Creatinine 12/17/19 12/17/19 12/18/19 17:50 23:46 05:17 WBC RBC Hgb 8.8 L Hct 28.0 L MCHC RDW MCV MCH Lymph % (Auto) [place] % (Auto) [place] # Eos # Lymph # (Auto) [place] # (Auto) Eos # (Auto) Seg Neutrophils % Seg Neuts % (Manual) Baso # (Auto) Lymphocytes % (Manual) Monocytes % (Manual) Eosinophils % (Manual) Basophils % (Manual) Seg Neutrophils # Seg Neutrophils # Man Lymphocytes # (Manual) Monocytes # (Manual) Eosinophils # (Manual) Nucleated RBC % Basophils # (Manual) PT INR APTT Heparin Anti-Xa Level ABG pH POC ABG pO2 ABG pO2 ABG HCO3 ABG O2 Saturation ABG Base Excess POC ABG pCO2 ABG Hemoglobin ABG Oxyhemoglobin ABG Chloride ABG Glucose Oxyhemoglobin Sodium Potassium Chloride Carbon Dioxide BUN Creatinine Glucose POC Glucose 158 H 150 H Lactic Acid Calcium Phosphorus Magnesium AST ALT Lactate Dehydrogenase Total Bilirubin Direct Bilirubin CK-MB (CK-2) C-Reactive Protein NT-Pro-B Natriuret Pep Total Protein Albumin Arterial Blood Glucose Urine WBC (Auto) Urine Creatinine 12/18/19 12/18/19 12/18/19 05:17 05:49 11:12 WBC RBC Hgb Hct MCHC RDW MCV MCH Lymph % (Auto) [place] % (Auto) [place] # Eos # Lymph # (Auto) [place] # (Auto) Eos # (Auto) Seg Neutrophils % Seg Neuts % (Manual) Baso # (Auto) Lymphocytes % (Manual) Monocytes % (Manual) Eosinophils % (Manual) Basophils % (Manual) Seg Neutrophils # Seg Neutrophils # Man Lymphocytes # (Manual) Monocytes # (Manual) Eosinophils # (Manual) Nucleated RBC % Basophils # (Manual) PT INR APTT Heparin Anti-Xa Level 0.16 L ABG pH POC ABG pO2 ABG pO2 ABG HCO3 ABG O2 Saturation ABG Base Excess POC ABG pCO2 ABG Hemoglobin ABG Oxyhemoglobin ABG Chloride ABG Glucose Oxyhemoglobin Sodium Potassium Chloride Carbon Dioxide BUN Creatinine Glucose POC Glucose 127 H 191 H Lactic Acid Calcium Phosphorus Magnesium AST ALT Lactate Dehydrogenase Total Bilirubin Direct Bilirubin CK-MB (CK-2) C-Reactive Protein NT-Pro-B Natriuret Pep Total Protein Albumin Arterial Blood Glucose Urine WBC (Auto) Urine Creatinine 12/18/19 12/18/19 12/19/19 17:03 20:16 00:08 WBC RBC Hgb Hct MCHC RDW MCV MCH Lymph % (Auto) [place] % (Auto) [place] # Eos # Lymph # (Auto) [place] # (Auto) Eos # (Auto) Seg Neutrophils % Seg Neuts % (Manual) Baso # (Auto) Lymphocytes % (Manual) Monocytes % (Manual) Eosinophils % (Manual) Basophils % (Manual) Seg Neutrophils # Seg Neutrophils # Man Lymphocytes # (Manual) Monocytes # (Manual) Eosinophils # (Manual) Nucleated RBC % Basophils # (Manual) PT INR APTT Heparin Anti-Xa Level ABG pH POC ABG pO2 ABG pO2 ABG HCO3 ABG O2 Saturation ABG Base Excess POC ABG pCO2 ABG Hemoglobin ABG Oxyhemoglobin ABG Chloride ABG Glucose Oxyhemoglobin Sodium Potassium Chloride Carbon Dioxide BUN Creatinine Glucose POC Glucose 133 H 128 H 129 H Lactic Acid Calcium Phosphorus Magnesium AST ALT Lactate Dehydrogenase Total Bilirubin Direct Bilirubin CK-MB (CK-2) C-Reactive Protein NT-Pro-B Natriuret Pep Total Protein Albumin Arterial Blood Glucose Urine WBC (Auto) Urine Creatinine 12/19/19 12/19/19 12/19/19 04:45 04:45 05:35 WBC RBC Hgb Hct MCHC RDW MCV MCH Lymph % (Auto) [place] % (Auto) [place] # Eos # Lymph # (Auto) [place] # (Auto) Eos # (Auto) Seg Neutrophils % Seg Neuts % (Manual) Baso # (Auto) Lymphocytes % (Manual) Monocytes % (Manual) Eosinophils % (Manual) Basophils % (Manual) Seg Neutrophils # Seg Neutrophils # Man Lymphocytes # (Manual) Monocytes # (Manual) Eosinophils # (Manual) Nucleated RBC % Basophils # (Manual) PT INR APTT Heparin Anti-Xa Level 0.17 L ABG pH POC ABG pO2 ABG pO2 ABG HCO3 ABG O2 Saturation ABG Base Excess POC ABG pCO2 ABG Hemoglobin ABG Oxyhemoglobin ABG Chloride ABG Glucose Oxyhemoglobin Sodium Potassium Chloride Carbon Dioxide BUN Creatinine Glucose POC Glucose 120 H Lactic Acid Calcium Phosphorus Magnesium AST ALT Lactate Dehydrogenase 228 H Total Bilirubin Direct Bilirubin CK-MB (CK-2) C-Reactive Protein NT-Pro-B Natriuret Pep Total Protein Albumin Arterial Blood Glucose Urine WBC (Auto) Urine Creatinine 12/19/19 12/19/19 12/19/19 09:20 11:32 11:32 WBC 14.6 H RBC 3.08 L Hgb 9.0 L Hct 26.8 L MCHC RDW 15.9 H MCV MCH Lymph % (Auto) [place] % (Auto) [place] # Eos # Lymph # (Auto) [place] # (Auto) Eos # (Auto) Seg Neutrophils % Seg Neuts % (Manual) 82.0 H Baso # (Auto) Lymphocytes % (Manual) 10.0 L Monocytes % (Manual) Eosinophils % (Manual) Basophils % (Manual) Seg Neutrophils # Seg Neutrophils # Man 12.0 H Lymphocytes # (Manual) Monocytes # (Manual) 0.9 H Eosinophils # (Manual) Nucleated RBC % 1.0 H Basophils # (Manual) PT INR APTT Heparin Anti-Xa Level ABG pH 7.451 H POC ABG pO2 ABG pO2 62.6 L ABG HCO3 33.2 H ABG O2 Saturation 93.8 L ABG Base Excess 8.3 H POC ABG pCO2 ABG Hemoglobin 8.3 L ABG Oxyhemoglobin ABG Chloride ABG Glucose Oxyhemoglobin 91.9 L Sodium Potassium Chloride 95.0 L Carbon Dioxide 33 H BUN 22 H Creatinine 0.6 L Glucose 150 H POC Glucose Lactic Acid Calcium Phosphorus Magnesium AST ALT Lactate Dehydrogenase Total Bilirubin Direct Bilirubin CK-MB (CK-2) C-Reactive Protein NT-Pro-B Natriuret Pep Total Protein 6.2 L Albumin 2.4 L Arterial Blood Glucose Urine WBC (Auto) Urine Creatinine 12/19/19 12/19/19 12/20/19 11:56 18:17 00:09 WBC RBC Hgb Hct MCHC RDW MCV MCH Lymph % (Auto) [place] % (Auto) [place] # Eos # Lymph # (Auto) [place] # (Auto) Eos # (Auto) Seg Neutrophils % Seg Neuts % (Manual) Baso # (Auto) Lymphocytes % (Manual) Monocytes % (Manual) Eosinophils % (Manual) Basophils % (Manual) Seg Neutrophils # Seg Neutrophils # Man Lymphocytes # (Manual) Monocytes # (Manual) Eosinophils # (Manual) Nucleated RBC % Basophils # (Manual) PT INR APTT Heparin Anti-Xa Level ABG pH POC ABG pO2 ABG pO2 ABG HCO3 ABG O2 Saturation ABG Base Excess POC ABG pCO2 ABG Hemoglobin ABG Oxyhemoglobin ABG Chloride ABG Glucose Oxyhemoglobin Sodium Potassium Chloride Carbon Dioxide BUN Creatinine Glucose POC Glucose 156 H 156 H 155 H Lactic Acid Calcium Phosphorus Magnesium AST ALT Lactate Dehydrogenase Total Bilirubin Direct Bilirubin CK-MB (CK-2) C-Reactive Protein NT-Pro-B Natriuret Pep Total Protein Albumin Arterial Blood Glucose Urine WBC (Auto) Urine Creatinine 12/20/19 12/20/19 12/20/19 05:26 06:02 18:17 WBC RBC Hgb Hct MCHC RDW MCV MCH Lymph % (Auto) [place] % (Auto) [place] # Eos # Lymph # (Auto) [place] # (Auto) Eos # (Auto) Seg Neutrophils % Seg Neuts % (Manual) Baso # (Auto) Lymphocytes % (Manual) Monocytes % (Manual) Eosinophils % (Manual) Basophils % (Manual) Seg Neutrophils # Seg Neutrophils # Man Lymphocytes # (Manual) Monocytes # (Manual) Eosinophils # (Manual) Nucleated RBC % Basophils # (Manual) PT INR APTT Heparin Anti-Xa Level 0.19 L ABG pH POC ABG pO2 ABG pO2 ABG HCO3 ABG O2 Saturation ABG Base Excess POC ABG pCO2 ABG Hemoglobin ABG Oxyhemoglobin ABG Chloride ABG Glucose Oxyhemoglobin Sodium Potassium Chloride Carbon Dioxide BUN Creatinine Glucose POC Glucose 137 H 128 H Lactic Acid Calcium Phosphorus Magnesium AST ALT Lactate Dehydrogenase Total Bilirubin Direct Bilirubin CK-MB (CK-2) C-Reactive Protein NT-Pro-B Natriuret Pep Total Protein Albumin Arterial Blood Glucose Urine WBC (Auto) Urine Creatinine 12/20/19 12/21/19 12/21/19 23:34 05:31 05:31 WBC 12.7 H RBC 3.09 L Hgb 8.9 L Hct 27.4 L MCHC RDW 15.8 H MCV MCH Lymph % (Auto) 12.1 L [place] % (Auto) 7.8 H [place] # Eos # Lymph # (Auto) [place] # (Auto) 1.0 H Eos # (Auto) Seg Neutrophils % 77.1 H Seg Neuts % (Manual) Baso # (Auto) Lymphocytes % (Manual) Monocytes % (Manual) Eosinophils % (Manual) Basophils % (Manual) Seg Neutrophils # 9.8 H Seg Neutrophils # Man Lymphocytes # (Manual) Monocytes # (Manual) Eosinophils # (Manual) Nucleated RBC % Basophils # (Manual) PT INR APTT Heparin Anti-Xa Level ABG pH POC ABG pO2 ABG pO2 ABG HCO3 ABG O2 Saturation ABG Base Excess POC ABG pCO2 ABG Hemoglobin ABG Oxyhemoglobin ABG Chloride ABG Glucose Oxyhemoglobin Sodium Potassium Chloride 96.9 L Carbon Dioxide 37 H BUN 27 H Creatinine 0.7 L Glucose 140 H POC Glucose 145 H Lactic Acid Calcium Phosphorus Magnesium AST ALT Lactate Dehydrogenase Total Bilirubin Direct Bilirubin CK-MB (CK-2) C-Reactive Protein NT-Pro-B Natriuret Pep Total Protein Albumin Arterial Blood Glucose Urine WBC (Auto) Urine Creatinine 12/21/19 12/21/19 12/21/19 05:38 10:13 11:51 WBC RBC Hgb Hct MCHC RDW MCV MCH Lymph % (Auto) [place] % (Auto) [place] # Eos # Lymph # (Auto) [place] # (Auto) Eos # (Auto) Seg Neutrophils % Seg Neuts % (Manual) Baso # (Auto) Lymphocytes % (Manual) Monocytes % (Manual) Eosinophils % (Manual) Basophils % (Manual) Seg Neutrophils # Seg Neutrophils # Man Lymphocytes # (Manual) Monocytes # (Manual) Eosinophils # (Manual) Nucleated RBC % Basophils # (Manual) PT INR APTT 23.9 L Heparin Anti-Xa Level < 0.10 L ABG pH POC ABG pO2 ABG pO2 ABG HCO3 ABG O2 Saturation ABG Base Excess POC ABG pCO2 ABG Hemoglobin ABG Oxyhemoglobin ABG Chloride ABG Glucose Oxyhemoglobin Sodium Potassium Chloride Carbon Dioxide BUN Creatinine Glucose POC Glucose 151 H 145 H Lactic Acid Calcium Phosphorus Magnesium AST ALT Lactate Dehydrogenase Total Bilirubin Direct Bilirubin CK-MB (CK-2) C-Reactive Protein NT-Pro-B Natriuret Pep Total Protein Albumin Arterial Blood Glucose Urine WBC (Auto) Urine Creatinine 12/21/19 12/22/19 12/22/19 17:16 00:01 01:33 WBC RBC Hgb Hct MCHC RDW MCV MCH Lymph % (Auto) [place] % (Auto) [place] # Eos # Lymph # (Auto) [place] # (Auto) Eos # (Auto) Seg Neutrophils % Seg Neuts % (Manual) Baso # (Auto) Lymphocytes % (Manual) Monocytes % (Manual) Eosinophils % (Manual) Basophils % (Manual) Seg Neutrophils # Seg Neutrophils # Man Lymphocytes # (Manual) Monocytes # (Manual) Eosinophils # (Manual) Nucleated RBC % Basophils # (Manual) PT INR APTT Heparin Anti-Xa Level 0.10 L ABG pH POC ABG pO2 ABG pO2 ABG HCO3 ABG O2 Saturation ABG Base Excess POC ABG pCO2 ABG Hemoglobin ABG Oxyhemoglobin ABG Chloride ABG Glucose Oxyhemoglobin Sodium Potassium Chloride Carbon Dioxide BUN Creatinine Glucose POC Glucose 167 H 179 H Lactic Acid Calcium Phosphorus Magnesium AST ALT Lactate Dehydrogenase Total Bilirubin Direct Bilirubin CK-MB (CK-2) C-Reactive Protein NT-Pro-B Natriuret Pep Total Protein Albumin Arterial Blood Glucose Urine WBC (Auto) Urine Creatinine 12/22/19 12/22/19 12/22/19 03:22 05:10 05:10 WBC 13.8 H RBC 3.20 L Hgb 8.9 L Hct 28.1 L MCHC RDW 15.9 H MCV MCH Lymph % (Auto) [place] % (Auto) [place] # Eos # Lymph # (Auto) [place] # (Auto) Eos # (Auto) Seg Neutrophils % Seg Neuts % (Manual) Baso # (Auto) Lymphocytes % (Manual) Monocytes % (Manual) Eosinophils % (Manual) Basophils % (Manual) Seg Neutrophils # Seg Neutrophils # Man Lymphocytes # (Manual) Monocytes # (Manual) Eosinophils # (Manual) Nucleated RBC % Basophils # (Manual) PT INR APTT Heparin Anti-Xa Level ABG pH POC ABG pO2 52.3 L ABG pO2 ABG HCO3 ABG O2 Saturation ABG Base Excess POC ABG pCO2 52.9 H ABG Hemoglobin 10.7 L ABG Oxyhemoglobin 84 L ABG Chloride ABG Glucose Oxyhemoglobin Sodium Potassium Chloride 96.6 L Carbon Dioxide BUN 25 H Creatinine 0.7 L Glucose 129 H POC Glucose Lactic Acid Calcium Phosphorus Magnesium AST ALT Lactate Dehydrogenase Total Bilirubin Direct Bilirubin CK-MB (CK-2) C-Reactive Protein NT-Pro-B Natriuret Pep Total Protein Albumin Arterial Blood Glucose Urine WBC (Auto) Urine Creatinine 12/22/19 12/22/19 12/22/19 05:18 12:32 12:43 WBC RBC Hgb Hct MCHC RDW MCV MCH Lymph % (Auto) [place] % (Auto) [place] # Eos # Lymph # (Auto) [place] # (Auto) Eos # (Auto) Seg Neutrophils % Seg Neuts % (Manual) Baso # (Auto) Lymphocytes % (Manual) Monocytes % (Manual) Eosinophils % (Manual) Basophils % (Manual) Seg Neutrophils # Seg Neutrophils # Man Lymphocytes # (Manual) Monocytes # (Manual) Eosinophils # (Manual) Nucleated RBC % Basophils # (Manual) PT INR APTT Heparin Anti-Xa Level 0.18 L ABG pH POC ABG pO2 ABG pO2 ABG HCO3 ABG O2 Saturation ABG Base Excess POC ABG pCO2 ABG Hemoglobin ABG Oxyhemoglobin ABG Chloride ABG Glucose Oxyhemoglobin Sodium Potassium Chloride Carbon Dioxide BUN Creatinine Glucose POC Glucose 131 H 208 H Lactic Acid Calcium Phosphorus Magnesium AST ALT Lactate Dehydrogenase Total Bilirubin Direct Bilirubin CK-MB (CK-2) C-Reactive Protein NT-Pro-B Natriuret Pep Total Protein Albumin Arterial Blood Glucose Urine WBC (Auto) Urine Creatinine 12/22/19 12/22/19 12/23/19 17:44 23:20 03:51 WBC 15.2 H RBC 3.43 L Hgb 9.6 L Hct 30.3 L MCHC RDW 15.9 H MCV MCH Lymph % (Auto) [place] % (Auto) [place] # Eos # Lymph # (Auto) [place] # (Auto) Eos # (Auto) Seg Neutrophils % Seg Neuts % (Manual) Baso # (Auto) Lymphocytes % (Manual) Monocytes % (Manual) Eosinophils % (Manual) Basophils % (Manual) Seg Neutrophils # Seg Neutrophils # Man Lymphocytes # (Manual) Monocytes # (Manual) Eosinophils # (Manual) Nucleated RBC % Basophils # (Manual) PT INR APTT Heparin Anti-Xa Level ABG pH POC ABG pO2 ABG pO2 ABG HCO3 ABG O2 Saturation ABG Base Excess POC ABG pCO2 ABG Hemoglobin ABG Oxyhemoglobin ABG Chloride ABG Glucose Oxyhemoglobin Sodium Potassium Chloride Carbon Dioxide BUN Creatinine Glucose POC Glucose 209 H 119 H Lactic Acid Calcium Phosphorus Magnesium AST ALT Lactate Dehydrogenase Total Bilirubin Direct Bilirubin CK-MB (CK-2) C-Reactive Protein NT-Pro-B Natriuret Pep Total Protein Albumin Arterial Blood Glucose Urine WBC (Auto) Urine Creatinine 12/23/19 12/23/19 12/23/19 03:51 05:31 12:09 WBC RBC Hgb Hct MCHC RDW MCV MCH Lymph % (Auto) [place] % (Auto) [place] # Eos # Lymph # (Auto) [place] # (Auto) Eos # (Auto) Seg Neutrophils % Seg Neuts % (Manual) Baso # (Auto) Lymphocytes % (Manual) Monocytes % (Manual) Eosinophils % (Manual) Basophils % (Manual) Seg Neutrophils # Seg Neutrophils # Man Lymphocytes # (Manual) Monocytes # (Manual) Eosinophils # (Manual) Nucleated RBC % Basophils # (Manual) PT INR APTT Heparin Anti-Xa Level ABG pH POC ABG pO2 ABG pO2 ABG HCO3 ABG O2 Saturation ABG Base Excess POC ABG pCO2 ABG Hemoglobin ABG Oxyhemoglobin ABG Chloride ABG Glucose Oxyhemoglobin Sodium Potassium Chloride 97.2 L Carbon Dioxide 31 H BUN 23 H Creatinine 0.6 L Glucose 153 H POC Glucose 149 H 144 H Lactic Acid Calcium Phosphorus Magnesium AST ALT Lactate Dehydrogenase Total Bilirubin Direct Bilirubin CK-MB (CK-2) C-Reactive Protein NT-Pro-B Natriuret Pep Total Protein Albumin Arterial Blood Glucose Urine WBC (Auto) Urine Creatinine 12/23/19 12/23/19 12/23/19 15:30 17:49 23:31 WBC RBC Hgb Hct MCHC RDW MCV MCH Lymph % (Auto) [place] % (Auto) [place] # Eos # Lymph # (Auto) [place] # (Auto) Eos # (Auto) Seg Neutrophils % Seg Neuts % (Manual) Baso # (Auto) Lymphocytes % (Manual) Monocytes % (Manual) Eosinophils % (Manual) Basophils % (Manual) Seg Neutrophils # Seg Neutrophils # Man Lymphocytes # (Manual) Monocytes # (Manual) Eosinophils # (Manual) Nucleated RBC % Basophils # (Manual) PT INR APTT Heparin Anti-Xa Level 0.21 L ABG pH POC ABG pO2 ABG pO2 ABG HCO3 ABG O2 Saturation ABG Base Excess POC ABG pCO2 ABG Hemoglobin ABG Oxyhemoglobin ABG Chloride ABG Glucose Oxyhemoglobin Sodium Potassium Chloride Carbon Dioxide BUN Creatinine Glucose POC Glucose 192 H 151 H Lactic Acid Calcium Phosphorus Magnesium AST ALT Lactate Dehydrogenase Total Bilirubin Direct Bilirubin CK-MB (CK-2) C-Reactive Protein NT-Pro-B Natriuret Pep Total Protein Albumin Arterial Blood Glucose Urine WBC (Auto) Urine Creatinine 12/24/19 12/24/19 12/24/19 05:34 12:13 16:50 WBC RBC Hgb Hct MCHC RDW MCV MCH Lymph % (Auto) [place] % (Auto) [place] # Eos # Lymph # (Auto) [place] # (Auto) Eos # (Auto) Seg Neutrophils % Seg Neuts % (Manual) Baso # (Auto) Lymphocytes % (Manual) Monocytes % (Manual) Eosinophils % (Manual) Basophils % (Manual) Seg Neutrophils # Seg Neutrophils # Man Lymphocytes # (Manual) Monocytes # (Manual) Eosinophils # (Manual) Nucleated RBC % Basophils # (Manual) PT INR APTT Heparin Anti-Xa Level 0.16 L ABG pH POC ABG pO2 ABG pO2 ABG HCO3 ABG O2 Saturation ABG Base Excess POC ABG pCO2 ABG Hemoglobin ABG Oxyhemoglobin ABG Chloride ABG Glucose Oxyhemoglobin Sodium Potassium Chloride Carbon Dioxide BUN Creatinine Glucose POC Glucose 145 H 124 H Lactic Acid Calcium Phosphorus Magnesium AST ALT Lactate Dehydrogenase Total Bilirubin Direct Bilirubin CK-MB (CK-2) C-Reactive Protein NT-Pro-B Natriuret Pep Total Protein Albumin Arterial Blood Glucose Urine WBC (Auto) Urine Creatinine 12/24/19 12/25/19 12/25/19 17:53 00:14 04:18 WBC 12.9 H RBC 3.30 L Hgb 9.1 L Hct 28.8 L MCHC RDW 16.4 H MCV MCH Lymph % (Auto) [place] % (Auto) 7.8 H [place] # Eos # Lymph # (Auto) [place] # (Auto) 1.0 H Eos # (Auto) Seg Neutrophils % 75.5 H Seg Neuts % (Manual) Baso # (Auto) Lymphocytes % (Manual) Monocytes % (Manual) Eosinophils % (Manual) Basophils % (Manual) Seg Neutrophils # 9.7 H Seg Neutrophils # Man Lymphocytes # (Manual) Monocytes # (Manual) Eosinophils # (Manual) Nucleated RBC % Basophils # (Manual) PT INR APTT Heparin Anti-Xa Level ABG pH POC ABG pO2 ABG pO2 ABG HCO3 ABG O2 Saturation ABG Base Excess POC ABG pCO2 ABG Hemoglobin ABG Oxyhemoglobin ABG Chloride ABG Glucose Oxyhemoglobin Sodium Potassium Chloride Carbon Dioxide BUN Creatinine Glucose POC Glucose 164 H 148 H Lactic Acid Calcium Phosphorus Magnesium AST ALT Lactate Dehydrogenase Total Bilirubin Direct Bilirubin CK-MB (CK-2) C-Reactive Protein NT-Pro-B Natriuret Pep Total Protein Albumin Arterial Blood Glucose Urine WBC (Auto) Urine Creatinine 12/25/19 12/25/19 12/25/19 04:18 05:38 11:44 WBC RBC Hgb Hct MCHC RDW MCV MCH Lymph % (Auto) [place] % (Auto) [place] # Eos # Lymph # (Auto) [place] # (Auto) Eos # (Auto) Seg Neutrophils % Seg Neuts % (Manual) Baso # (Auto) Lymphocytes % (Manual) Monocytes % (Manual) Eosinophils % (Manual) Basophils % (Manual) Seg Neutrophils # Seg Neutrophils # Man Lymphocytes # (Manual) Monocytes # (Manual) Eosinophils # (Manual) Nucleated RBC % Basophils # (Manual) PT INR APTT Heparin Anti-Xa Level ABG pH POC ABG pO2 ABG pO2 ABG HCO3 ABG O2 Saturation ABG Base Excess POC ABG pCO2 ABG Hemoglobin ABG Oxyhemoglobin ABG Chloride ABG Glucose Oxyhemoglobin Sodium Potassium Chloride Carbon Dioxide 33 H BUN 27 H Creatinine 0.6 L Glucose 132 H POC Glucose 152 H 166 H Lactic Acid Calcium Phosphorus Magnesium AST ALT Lactate Dehydrogenase Total Bilirubin Direct Bilirubin CK-MB (CK-2) C-Reactive Protein NT-Pro-B Natriuret Pep Total Protein Albumin Arterial Blood Glucose Urine WBC (Auto) Urine Creatinine 12/25/19 12/26/19 12/26/19 18:29 00:17 00:18 WBC RBC Hgb Hct MCHC RDW MCV MCH Lymph % (Auto) [place] % (Auto) [place] # Eos # Lymph # (Auto) [place] # (Auto) Eos # (Auto) Seg Neutrophils % Seg Neuts % (Manual) Baso # (Auto) Lymphocytes % (Manual) Monocytes % (Manual) Eosinophils % (Manual) Basophils % (Manual) Seg Neutrophils # Seg Neutrophils # Man Lymphocytes # (Manual) Monocytes # (Manual) Eosinophils # (Manual) Nucleated RBC % Basophils # (Manual) PT INR APTT Heparin Anti-Xa Level ABG pH POC ABG pO2 ABG pO2 ABG HCO3 ABG O2 Saturation ABG Base Excess POC ABG pCO2 ABG Hemoglobin ABG Oxyhemoglobin ABG Chloride ABG Glucose Oxyhemoglobin Sodium Potassium Chloride 97.8 L Carbon Dioxide BUN 25 H Creatinine 0.6 L Glucose 140 H POC Glucose 194 H 151 H Lactic Acid Calcium Phosphorus Magnesium AST ALT Lactate Dehydrogenase Total Bilirubin Direct Bilirubin CK-MB (CK-2) C-Reactive Protein NT-Pro-B Natriuret Pep Total Protein Albumin Arterial Blood Glucose Urine WBC (Auto) Urine Creatinine 12/26/19 12/26/19 12/26/19 05:36 11:41 17:50 WBC RBC Hgb Hct MCHC RDW MCV MCH Lymph % (Auto) [place] % (Auto) [place] # Eos # Lymph # (Auto) [place] # (Auto) Eos # (Auto) Seg Neutrophils % Seg Neuts % (Manual) Baso # (Auto) Lymphocytes % (Manual) Monocytes % (Manual) Eosinophils % (Manual) Basophils % (Manual) Seg Neutrophils # Seg Neutrophils # Man Lymphocytes # (Manual) Monocytes # (Manual) Eosinophils # (Manual) Nucleated RBC % Basophils # (Manual) PT INR APTT Heparin Anti-Xa Level ABG pH POC ABG pO2 ABG pO2 ABG HCO3 ABG O2 Saturation ABG Base Excess POC ABG pCO2 ABG Hemoglobin ABG Oxyhemoglobin ABG Chloride ABG Glucose Oxyhemoglobin Sodium Potassium Chloride Carbon Dioxide BUN Creatinine Glucose POC Glucose 156 H 148 H 139 H Lactic Acid Calcium Phosphorus Magnesium AST ALT Lactate Dehydrogenase Total Bilirubin Direct Bilirubin CK-MB (CK-2) C-Reactive Protein NT-Pro-B Natriuret Pep Total Protein Albumin Arterial Blood Glucose Urine WBC (Auto) Urine Creatinine 12/26/19 12/27/19 12/27/19 23:19 05:34 12:02 WBC RBC Hgb Hct MCHC RDW MCV MCH Lymph % (Auto) [place] % (Auto) [place] # Eos # Lymph # (Auto) [place] # (Auto) Eos # (Auto) Seg Neutrophils % Seg Neuts % (Manual) Baso # (Auto) Lymphocytes % (Manual) Monocytes % (Manual) Eosinophils % (Manual) Basophils % (Manual) Seg Neutrophils # Seg Neutrophils # Man Lymphocytes # (Manual) Monocytes # (Manual) Eosinophils # (Manual) Nucleated RBC % Basophils # (Manual) PT INR APTT Heparin Anti-Xa Level ABG pH POC ABG pO2 ABG pO2 ABG HCO3 ABG O2 Saturation ABG Base Excess POC ABG pCO2 ABG Hemoglobin ABG Oxyhemoglobin ABG Chloride ABG Glucose Oxyhemoglobin Sodium Potassium Chloride Carbon Dioxide BUN Creatinine Glucose POC Glucose 161 H 145 H 157 H Lactic Acid Calcium Phosphorus Magnesium AST ALT Lactate Dehydrogenase Total Bilirubin Direct Bilirubin CK-MB (CK-2) C-Reactive Protein NT-Pro-B Natriuret Pep Total Protein Albumin Arterial Blood Glucose Urine WBC (Auto) Urine Creatinine 12/27/19 12/27/19 12/27/19 17:35 20:11 23:00 WBC RBC Hgb Hct MCHC RDW MCV MCH Lymph % (Auto) [place] % (Auto) [place] # Eos # Lymph # (Auto) [place] # (Auto) Eos # (Auto) Seg Neutrophils % Seg Neuts % (Manual) Baso # (Auto) Lymphocytes % (Manual) Monocytes % (Manual) Eosinophils % (Manual) Basophils % (Manual) Seg Neutrophils # Seg Neutrophils # Man Lymphocytes # (Manual) Monocytes # (Manual) Eosinophils # (Manual) Nucleated RBC % Basophils # (Manual) PT INR APTT Heparin Anti-Xa Level 0.19 L ABG pH POC ABG pO2 ABG pO2 ABG HCO3 ABG O2 Saturation ABG Base Excess POC ABG pCO2 ABG Hemoglobin ABG Oxyhemoglobin ABG Chloride ABG Glucose Oxyhemoglobin Sodium Potassium Chloride Carbon Dioxide BUN Creatinine Glucose POC Glucose 158 H 155 H Lactic Acid Calcium Phosphorus Magnesium AST ALT Lactate Dehydrogenase Total Bilirubin Direct Bilirubin CK-MB (CK-2) C-Reactive Protein NT-Pro-B Natriuret Pep Total Protein Albumin Arterial Blood Glucose Urine WBC (Auto) Urine Creatinine 12/27/19 12/28/19 12/28/19 23:45 02:41 02:41 WBC 13.0 H RBC 3.48 L Hgb 9.5 L Hct 30.6 L MCHC 31 L RDW 16.6 H MCV MCH 27 L Lymph % (Auto) 13.0 L [place] % (Auto) 8.0 H [place] # Eos # Lymph # (Auto) [place] # (Auto) 1.0 H Eos # (Auto) Seg Neutrophils % 76.3 H Seg Neuts % (Manual) Baso # (Auto) Lymphocytes % (Manual) Monocytes % (Manual) Eosinophils % (Manual) Basophils % (Manual) Seg Neutrophils # 9.9 H Seg Neutrophils # Man Lymphocytes # (Manual) Monocytes # (Manual) Eosinophils # (Manual) Nucleated RBC % Basophils # (Manual) PT INR APTT Heparin Anti-Xa Level ABG pH POC ABG pO2 ABG pO2 ABG HCO3 ABG O2 Saturation ABG Base Excess POC ABG pCO2 ABG Hemoglobin ABG Oxyhemoglobin ABG Chloride ABG Glucose Oxyhemoglobin Sodium Potassium Chloride Carbon Dioxide BUN 22 H Creatinine 0.6 L Glucose 101 H POC Glucose 130 H Lactic Acid Calcium Phosphorus Magnesium AST ALT Lactate Dehydrogenase Total Bilirubin Direct Bilirubin CK-MB (CK-2) C-Reactive Protein NT-Pro-B Natriuret Pep Total Protein Albumin Arterial Blood Glucose Urine WBC (Auto) Urine Creatinine 12/28/19 12/28/19 12/28/19 06:00 12:34 18:13 WBC RBC Hgb Hct MCHC RDW MCV MCH Lymph % (Auto) [place] % (Auto) [place] # Eos # Lymph # (Auto) [place] # (Auto) Eos # (Auto) Seg Neutrophils % Seg Neuts % (Manual) Baso # (Auto) Lymphocytes % (Manual) Monocytes % (Manual) Eosinophils % (Manual) Basophils % (Manual) Seg Neutrophils # Seg Neutrophils # Man Lymphocytes # (Manual) Monocytes # (Manual) Eosinophils # (Manual) Nucleated RBC % Basophils # (Manual) PT INR APTT Heparin Anti-Xa Level ABG pH POC ABG pO2 ABG pO2 ABG HCO3 ABG O2 Saturation ABG Base Excess POC ABG pCO2 ABG Hemoglobin ABG Oxyhemoglobin ABG Chloride ABG Glucose Oxyhemoglobin Sodium Potassium Chloride Carbon Dioxide BUN Creatinine Glucose POC Glucose 150 H 161 H 128 H Lactic Acid Calcium Phosphorus Magnesium AST ALT Lactate Dehydrogenase Total Bilirubin Direct Bilirubin CK-MB (CK-2) C-Reactive Protein NT-Pro-B Natriuret Pep Total Protein Albumin Arterial Blood Glucose Urine WBC (Auto) Urine Creatinine 12/28/19 12/29/19 12/29/19 23:36 05:21 11:40 WBC RBC Hgb Hct MCHC RDW MCV MCH Lymph % (Auto) [place] % (Auto) [place] # Eos # Lymph # (Auto) [place] # (Auto) Eos # (Auto) Seg Neutrophils % Seg Neuts % (Manual) Baso # (Auto) Lymphocytes % (Manual) Monocytes % (Manual) Eosinophils % (Manual) Basophils % (Manual) Seg Neutrophils # Seg Neutrophils # Man Lymphocytes # (Manual) Monocytes # (Manual) Eosinophils # (Manual) Nucleated RBC % Basophils # (Manual) PT INR APTT Heparin Anti-Xa Level ABG pH POC ABG pO2 ABG pO2 ABG HCO3 ABG O2 Saturation ABG Base Excess POC ABG pCO2 ABG Hemoglobin ABG Oxyhemoglobin ABG Chloride ABG Glucose Oxyhemoglobin Sodium Potassium Chloride Carbon Dioxide BUN Creatinine Glucose POC Glucose 137 H 136 H 166 H Lactic Acid Calcium Phosphorus Magnesium AST ALT Lactate Dehydrogenase Total Bilirubin Direct Bilirubin CK-MB (CK-2) C-Reactive Protein NT-Pro-B Natriuret Pep Total Protein Albumin Arterial Blood Glucose Urine WBC (Auto) Urine Creatinine 12/29/19 12/29/19 12/29/19 17:23 19:21 23:38 WBC RBC Hgb Hct MCHC RDW MCV MCH Lymph % (Auto) [place] % (Auto) [place] # Eos # Lymph # (Auto) [place] # (Auto) Eos # (Auto) Seg Neutrophils % Seg Neuts % (Manual) Baso # (Auto) Lymphocytes % (Manual) Monocytes % (Manual) Eosinophils % (Manual) Basophils % (Manual) Seg Neutrophils # Seg Neutrophils # Man Lymphocytes # (Manual) Monocytes # (Manual) Eosinophils # (Manual) Nucleated RBC % Basophils # (Manual) PT INR APTT Heparin Anti-Xa Level 0.20 L ABG pH POC ABG pO2 ABG pO2 ABG HCO3 ABG O2 Saturation ABG Base Excess POC ABG pCO2 ABG Hemoglobin ABG Oxyhemoglobin ABG Chloride ABG Glucose Oxyhemoglobin Sodium Potassium Chloride Carbon Dioxide BUN Creatinine Glucose POC Glucose 144 H 141 H Lactic Acid Calcium Phosphorus Magnesium AST ALT Lactate Dehydrogenase Total Bilirubin Direct Bilirubin CK-MB (CK-2) C-Reactive Protein NT-Pro-B Natriuret Pep Total Protein Albumin Arterial Blood Glucose Urine WBC (Auto) Urine Creatinine 12/30/19 12/30/19 12/30/19 03:58 03:58 04:59 WBC RBC 3.54 L Hgb 9.8 L Hct 30.7 L MCHC RDW 16.8 H MCV MCH Lymph % (Auto) [place] % (Auto) [place] # Eos # Lymph # (Auto) [place] # (Auto) Eos # (Auto) Seg Neutrophils % Seg Neuts % (Manual) Baso # (Auto) Lymphocytes % (Manual) Monocytes % (Manual) Eosinophils % (Manual) Basophils % (Manual) Seg Neutrophils # Seg Neutrophils # Man Lymphocytes # (Manual) Monocytes # (Manual) Eosinophils # (Manual) Nucleated RBC % Basophils # (Manual) PT INR APTT Heparin Anti-Xa Level ABG pH POC ABG pO2 ABG pO2 ABG HCO3 29.8 H ABG O2 Saturation ABG Base Excess 4.8 H POC ABG pCO2 ABG Hemoglobin 11.2 L ABG Oxyhemoglobin ABG Chloride ABG Glucose Oxyhemoglobin 93.8 L Sodium Potassium Chloride 97.8 L Carbon Dioxide BUN 26 H Creatinine Glucose 168 H POC Glucose Lactic Acid Calcium Phosphorus Magnesium AST ALT Lactate Dehydrogenase Total Bilirubin Direct Bilirubin CK-MB (CK-2) C-Reactive Protein NT-Pro-B Natriuret Pep Total Protein Albumin Arterial Blood Glucose Urine WBC (Auto) Urine Creatinine 12/30/19 12/30/19 12/30/19 05:45 11:34 17:28 WBC RBC Hgb Hct MCHC RDW MCV MCH Lymph % (Auto) [place] % (Auto) [place] # Eos # Lymph # (Auto) [place] # (Auto) Eos # (Auto) Seg Neutrophils % Seg Neuts % (Manual) Baso # (Auto) Lymphocytes % (Manual) Monocytes % (Manual) Eosinophils % (Manual) Basophils % (Manual) Seg Neutrophils # Seg Neutrophils # Man Lymphocytes # (Manual) Monocytes # (Manual) Eosinophils # (Manual) Nucleated RBC % Basophils # (Manual) PT INR APTT Heparin Anti-Xa Level ABG pH POC ABG pO2 ABG pO2 ABG HCO3 ABG O2 Saturation ABG Base Excess POC ABG pCO2 ABG Hemoglobin ABG Oxyhemoglobin ABG Chloride ABG Glucose Oxyhemoglobin Sodium Potassium Chloride Carbon Dioxide BUN Creatinine Glucose POC Glucose 163 H 180 H 150 H Lactic Acid Calcium Phosphorus Magnesium AST ALT Lactate Dehydrogenase Total Bilirubin Direct Bilirubin CK-MB (CK-2) C-Reactive Protein NT-Pro-B Natriuret Pep Total Protein Albumin Arterial Blood Glucose Urine WBC (Auto) Urine Creatinine 12/30/19 12/31/19 12/31/19 23:43 04:55 05:07 WBC RBC Hgb Hct MCHC RDW MCV MCH Lymph % (Auto) [place] % (Auto) [place] # Eos # Lymph # (Auto) [place] # (Auto) Eos # (Auto) Seg Neutrophils % Seg Neuts % (Manual) Baso # (Auto) Lymphocytes % (Manual) Monocytes % (Manual) Eosinophils % (Manual) Basophils % (Manual) Seg Neutrophils # Seg Neutrophils # Man Lymphocytes # (Manual) Monocytes # (Manual) Eosinophils # (Manual) Nucleated RBC % Basophils # (Manual) PT INR APTT Heparin Anti-Xa Level ABG pH POC ABG pO2 ABG pO2 ABG HCO3 ABG O2 Saturation ABG Base Excess POC ABG pCO2 ABG Hemoglobin ABG Oxyhemoglobin ABG Chloride ABG Glucose Oxyhemoglobin Sodium Potassium 5.6 H D Chloride Carbon Dioxide BUN 33 H Creatinine Glucose 131 H POC Glucose 142 H 134 H Lactic Acid Calcium Phosphorus Magnesium AST ALT Lactate Dehydrogenase Total Bilirubin Direct Bilirubin CK-MB (CK-2) C-Reactive Protein NT-Pro-B Natriuret Pep Total Protein Albumin Arterial Blood Glucose Urine WBC (Auto) Urine Creatinine 12/31/19 12/31/19 12/31/19 11:30 17:19 17:36 WBC RBC Hgb Hct MCHC RDW MCV MCH Lymph % (Auto) [place] % (Auto) [place] # Eos # Lymph # (Auto) [place] # (Auto) Eos # (Auto) Seg Neutrophils % Seg Neuts % (Manual) Baso # (Auto) Lymphocytes % (Manual) Monocytes % (Manual) Eosinophils % (Manual) Basophils % (Manual) Seg Neutrophils # Seg Neutrophils # Man Lymphocytes # (Manual) Monocytes # (Manual) Eosinophils # (Manual) Nucleated RBC % Basophils # (Manual) PT INR APTT Heparin Anti-Xa Level ABG pH POC ABG pO2 ABG pO2 ABG HCO3 ABG O2 Saturation ABG Base Excess POC ABG pCO2 ABG Hemoglobin ABG Oxyhemoglobin ABG Chloride ABG Glucose Oxyhemoglobin Sodium Potassium Chloride Carbon Dioxide BUN 35 H Creatinine Glucose 156 H POC Glucose 158 H 181 H Lactic Acid Calcium Phosphorus Magnesium AST ALT Lactate Dehydrogenase Total Bilirubin Direct Bilirubin CK-MB (CK-2) C-Reactive Protein NT-Pro-B Natriuret Pep Total Protein Albumin Arterial Blood Glucose Urine WBC (Auto) Urine Creatinine 12/31/19 12/31/19 12/31/19 18:16 19:41 21:53 WBC RBC Hgb Hct MCHC RDW MCV MCH Lymph % (Auto) [place] % (Auto) [place] # Eos # Lymph # (Auto) [place] # (Auto) Eos # (Auto) Seg Neutrophils % Seg Neuts % (Manual) Baso # (Auto) Lymphocytes % (Manual) Monocytes % (Manual) Eosinophils % (Manual) Basophils % (Manual) Seg Neutrophils # Seg Neutrophils # Man Lymphocytes # (Manual) Monocytes # (Manual) Eosinophils # (Manual) Nucleated RBC % Basophils # (Manual) PT INR APTT Heparin Anti-Xa Level 0.20 L ABG pH POC ABG pO2 ABG pO2 ABG HCO3 ABG O2 Saturation ABG Base Excess POC ABG pCO2 ABG Hemoglobin ABG Oxyhemoglobin ABG Chloride ABG Glucose Oxyhemoglobin Sodium Potassium Chloride Carbon Dioxide BUN 34 H Creatinine Glucose 169 H POC Glucose 141 H Lactic Acid Calcium Phosphorus Magnesium AST ALT Lactate Dehydrogenase Total Bilirubin Direct Bilirubin CK-MB (CK-2) C-Reactive Protein NT-Pro-B Natriuret Pep Total Protein Albumin Arterial Blood Glucose Urine WBC (Auto) Urine Creatinine 12/31/19 01/01/20 01/01/20 23:51 05:17 10:40 WBC RBC Hgb Hct MCHC RDW MCV MCH Lymph % (Auto) [place] % (Auto) [place] # Eos # Lymph # (Auto) [place] # (Auto) Eos # (Auto) Seg Neutrophils % Seg Neuts % (Manual) Baso # (Auto) Lymphocytes % (Manual) Monocytes % (Manual) Eosinophils % (Manual) Basophils % (Manual) Seg Neutrophils # Seg Neutrophils # Man Lymphocytes # (Manual) Monocytes # (Manual) Eosinophils # (Manual) Nucleated RBC % Basophils # (Manual) PT INR APTT Heparin Anti-Xa Level ABG pH POC ABG pO2 ABG pO2 ABG HCO3 ABG O2 Saturation ABG Base Excess POC ABG pCO2 ABG Hemoglobin ABG Oxyhemoglobin ABG Chloride ABG Glucose Oxyhemoglobin Sodium Potassium Chloride Carbon Dioxide BUN 31 H Creatinine 0.7 L Glucose 137 H POC Glucose 131 H 155 H Lactic Acid Calcium Phosphorus Magnesium AST 73 H ALT 97 H Lactate Dehydrogenase Total Bilirubin Direct Bilirubin CK-MB (CK-2) C-Reactive Protein NT-Pro-B Natriuret Pep 3866 H Total Protein Albumin 2.8 L Arterial Blood Glucose Urine WBC (Auto) Urine Creatinine 01/01/20 01/01/20 01/01/20 12:26 15:33 17:53 WBC 14.3 H RBC 3.35 L Hgb 9.1 L Hct 28.8 L MCHC RDW 17.0 H MCV MCH 27 L Lymph % (Auto) 7.0 L [place] % (Auto) 7.6 H [place] # Eos # Lymph # (Auto) 1.0 L [place] # (Auto) 1.1 H Eos # (Auto) Seg Neutrophils % 83.3 H Seg Neuts % (Manual) Baso # (Auto) Lymphocytes % (Manual) Monocytes % (Manual) Eosinophils % (Manual) Basophils % (Manual) Seg Neutrophils # 12.0 H Seg Neutrophils # Man Lymphocytes # (Manual) Monocytes # (Manual) Eosinophils # (Manual) Nucleated RBC % Basophils # (Manual) PT INR APTT Heparin Anti-Xa Level ABG pH POC ABG pO2 ABG pO2 ABG HCO3 ABG O2 Saturation ABG Base Excess POC ABG pCO2 ABG Hemoglobin ABG Oxyhemoglobin ABG Chloride ABG Glucose Oxyhemoglobin Sodium Potassium Chloride Carbon Dioxide BUN Creatinine Glucose POC Glucose 128 H 128 H Lactic Acid Calcium Phosphorus Magnesium AST ALT Lactate Dehydrogenase Total Bilirubin Direct Bilirubin CK-MB (CK-2) C-Reactive Protein NT-Pro-B Natriuret Pep Total Protein Albumin Arterial Blood Glucose Urine WBC (Auto) Urine Creatinine 01/01/20 01/02/20 01/02/20 23:04 05:39 07:00 WBC RBC Hgb Hct MCHC RDW MCV MCH Lymph % (Auto) [place] % (Auto) [place] # Eos # Lymph # (Auto) [place] # (Auto) Eos # (Auto) Seg Neutrophils % Seg Neuts % (Manual) Baso # (Auto) Lymphocytes % (Manual) Monocytes % (Manual) Eosinophils % (Manual) Basophils % (Manual) Seg Neutrophils # Seg Neutrophils # Man Lymphocytes # (Manual) Monocytes # (Manual) Eosinophils # (Manual) Nucleated RBC % Basophils # (Manual) PT INR APTT Heparin Anti-Xa Level 0.13 L ABG pH POC ABG pO2 ABG pO2 ABG HCO3 ABG O2 Saturation ABG Base Excess POC ABG pCO2 ABG Hemoglobin ABG Oxyhemoglobin ABG Chloride ABG Glucose Oxyhemoglobin Sodium Potassium Chloride Carbon Dioxide BUN Creatinine Glucose POC Glucose 120 H 169 H Lactic Acid Calcium Phosphorus Magnesium AST ALT Lactate Dehydrogenase Total Bilirubin Direct Bilirubin CK-MB (CK-2) C-Reactive Protein NT-Pro-B Natriuret Pep Total Protein Albumin Arterial Blood Glucose Urine WBC (Auto) Urine Creatinine 01/02/20 01/02/20 01/02/20 12:15 14:06 17:58 WBC RBC Hgb Hct MCHC RDW MCV MCH Lymph % (Auto) [place] % (Auto) [place] # Eos # Lymph # (Auto) [place] # (Auto) Eos # (Auto) Seg Neutrophils % Seg Neuts % (Manual) Baso # (Auto) Lymphocytes % (Manual) Monocytes % (Manual) Eosinophils % (Manual) Basophils % (Manual) Seg Neutrophils # Seg Neutrophils # Man Lymphocytes # (Manual) Monocytes # (Manual) Eosinophils # (Manual) Nucleated RBC % Basophils # (Manual) PT INR APTT Heparin Anti-Xa Level < 0.10 L ABG pH POC ABG pO2 ABG pO2 ABG HCO3 ABG O2 Saturation ABG Base Excess POC ABG pCO2 ABG Hemoglobin ABG Oxyhemoglobin ABG Chloride ABG Glucose Oxyhemoglobin Sodium Potassium Chloride Carbon Dioxide BUN Creatinine Glucose POC Glucose 190 H 198 H Lactic Acid Calcium Phosphorus Magnesium AST ALT Lactate Dehydrogenase Total Bilirubin Direct Bilirubin CK-MB (CK-2) C-Reactive Protein NT-Pro-B Natriuret Pep Total Protein Albumin Arterial Blood Glucose Urine WBC (Auto) Urine Creatinine 01/02/20 01/02/20 01/03/20 21:43 23:33 05:42 WBC RBC Hgb Hct MCHC RDW MCV MCH Lymph % (Auto) [place] % (Auto) [place] # Eos # Lymph # (Auto) [place] # (Auto) Eos # (Auto) Seg Neutrophils % Seg Neuts % (Manual) Baso # (Auto) Lymphocytes % (Manual) Monocytes % (Manual) Eosinophils % (Manual) Basophils % (Manual) Seg Neutrophils # Seg Neutrophils # Man Lymphocytes # (Manual) Monocytes # (Manual) Eosinophils # (Manual) Nucleated RBC % Basophils # (Manual) PT INR APTT Heparin Anti-Xa Level 0.10 L ABG pH POC ABG pO2 ABG pO2 ABG HCO3 ABG O2 Saturation ABG Base Excess POC ABG pCO2 ABG Hemoglobin ABG Oxyhemoglobin ABG Chloride ABG Glucose Oxyhemoglobin Sodium Potassium Chloride Carbon Dioxide BUN Creatinine Glucose POC Glucose 180 H 163 H Lactic Acid Calcium Phosphorus Magnesium AST ALT Lactate Dehydrogenase Total Bilirubin Direct Bilirubin CK-MB (CK-2) C-Reactive Protein NT-Pro-B Natriuret Pep Total Protein Albumin Arterial Blood Glucose Urine WBC (Auto) Urine Creatinine 01/03/20 01/03/20 01/03/20 06:50 07:25 07:45 WBC 12.1 H RBC 3.35 L Hgb 9.0 L Hct 28.9 L MCHC 31 L RDW 16.6 H MCV MCH 27 L Lymph % (Auto) 13.0 L [place] % (Auto) 8.6 H [place] # Eos # Lymph # (Auto) [place] # (Auto) 1.0 H Eos # (Auto) Seg Neutrophils % 75.9 H Seg Neuts % (Manual) Baso # (Auto) Lymphocytes % (Manual) Monocytes % (Manual) Eosinophils % (Manual) Basophils % (Manual) Seg Neutrophils # 9.2 H Seg Neutrophils # Man Lymphocytes # (Manual) Monocytes # (Manual) Eosinophils # (Manual) Nucleated RBC % Basophils # (Manual) PT INR APTT Heparin Anti-Xa Level 0.29 L ABG pH POC ABG pO2 ABG pO2 ABG HCO3 ABG O2 Saturation ABG Base Excess POC ABG pCO2 ABG Hemoglobin ABG Oxyhemoglobin ABG Chloride ABG Glucose Oxyhemoglobin Sodium Potassium 3.3 L D Chloride Carbon Dioxide 35 H D BUN 23 H Creatinine 0.6 L Glucose 149 H POC Glucose Lactic Acid Calcium Phosphorus Magnesium AST ALT 88 H Lactate Dehydrogenase Total Bilirubin Direct Bilirubin CK-MB (CK-2) C-Reactive Protein NT-Pro-B Natriuret Pep Total Protein 6.2 L Albumin 2.9 L Arterial Blood Glucose Urine WBC (Auto) Urine Creatinine 01/03/20 01/03/20 01/03/20 12:05 17:42 18:30 WBC RBC Hgb Hct MCHC RDW MCV MCH Lymph % (Auto) [place] % (Auto) [place] # Eos # Lymph # (Auto) [place] # (Auto) Eos # (Auto) Seg Neutrophils % Seg Neuts % (Manual) Baso # (Auto) Lymphocytes % (Manual) Monocytes % (Manual) Eosinophils % (Manual) Basophils % (Manual) Seg Neutrophils # Seg Neutrophils # Man Lymphocytes # (Manual) Monocytes # (Manual) Eosinophils # (Manual) Nucleated RBC % Basophils # (Manual) PT INR APTT Heparin Anti-Xa Level ABG pH POC ABG pO2 ABG pO2 70.7 L ABG HCO3 36.1 H ABG O2 Saturation 94.4 L ABG Base Excess 10.0 H POC ABG pCO2 ABG Hemoglobin 9.7 L ABG Oxyhemoglobin ABG Chloride ABG Glucose Oxyhemoglobin 91.8 L Sodium Potassium Chloride Carbon Dioxide BUN Creatinine Glucose POC Glucose 128 H 132 H Lactic Acid Calcium Phosphorus Magnesium AST ALT Lactate Dehydrogenase Total Bilirubin Direct Bilirubin CK-MB (CK-2) C-Reactive Protein NT-Pro-B Natriuret Pep Total Protein Albumin Arterial Blood Glucose Urine WBC (Auto) Urine Creatinine 01/04/20 01/04/20 01/04/20 00:10 04:26 05:23 WBC RBC Hgb Hct MCHC RDW MCV MCH Lymph % (Auto) [place] % (Auto) [place] # Eos # Lymph # (Auto) [place] # (Auto) Eos # (Auto) Seg Neutrophils % Seg Neuts % (Manual) Baso # (Auto) Lymphocytes % (Manual) Monocytes % (Manual) Eosinophils % (Manual) Basophils % (Manual) Seg Neutrophils # Seg Neutrophils # Man Lymphocytes # (Manual) Monocytes # (Manual) Eosinophils # (Manual) Nucleated RBC % Basophils # (Manual) PT INR APTT Heparin Anti-Xa Level 0.16 L ABG pH POC ABG pO2 ABG pO2 ABG HCO3 ABG O2 Saturation ABG Base Excess POC ABG pCO2 ABG Hemoglobin ABG Oxyhemoglobin ABG Chloride ABG Glucose Oxyhemoglobin Sodium Potassium Chloride Carbon Dioxide BUN Creatinine Glucose POC Glucose 121 H 119 H Lactic Acid Calcium Phosphorus Magnesium AST ALT Lactate Dehydrogenase Total Bilirubin Direct Bilirubin CK-MB (CK-2) C-Reactive Protein NT-Pro-B Natriuret Pep Total Protein Albumin Arterial Blood Glucose Urine WBC (Auto) Urine Creatinine 01/04/20 01/04/20 01/04/20 09:50 09:50 12:18 WBC 15.4 H RBC 3.30 L Hgb 8.7 L Hct 28.2 L MCHC 31 L RDW 17.0 H MCV MCH 26 L Lymph % (Auto) [place] % (Auto) 7.6 H [place] # Eos # Lymph # (Auto) [place] # (Auto) 1.2 H Eos # (Auto) Seg Neutrophils % 75.4 H Seg Neuts % (Manual) Baso # (Auto) Lymphocytes % (Manual) Monocytes % (Manual) Eosinophils % (Manual) Basophils % (Manual) Seg Neutrophils # 11.6 H Seg Neutrophils # Man Lymphocytes # (Manual) Monocytes # (Manual) Eosinophils # (Manual) Nucleated RBC % Basophils # (Manual) PT INR APTT Heparin Anti-Xa Level ABG pH POC ABG pO2 ABG pO2 ABG HCO3 ABG O2 Saturation ABG Base Excess POC ABG pCO2 ABG Hemoglobin ABG Oxyhemoglobin ABG Chloride ABG Glucose Oxyhemoglobin Sodium 148 H Potassium 3.5 L Chloride Carbon Dioxide 32 H BUN Creatinine 0.6 L Glucose 114 H POC Glucose 111 H Lactic Acid Calcium Phosphorus Magnesium AST ALT 59 H Lactate Dehydrogenase Total Bilirubin Direct Bilirubin CK-MB (CK-2) C-Reactive Protein NT-Pro-B Natriuret Pep Total Protein Albumin 2.6 L Arterial Blood Glucose Urine WBC (Auto) Urine Creatinine 01/05/20 01/05/20 01/05/20 04:05 04:05 05:19 WBC 11.7 H RBC 3.50 L Hgb 9.3 L Hct 29.9 L MCHC 31 L RDW 16.6 H MCV MCH 27 L Lymph % (Auto) 13.1 L [place] % (Auto) 9.7 H [place] # Eos # Lymph # (Auto) [place] # (Auto) 1.1 H Eos # (Auto) Seg Neutrophils % 74.0 H Seg Neuts % (Manual) Baso # (Auto) Lymphocytes % (Manual) Monocytes % (Manual) Eosinophils % (Manual) Basophils % (Manual) Seg Neutrophils # 8.6 H Seg Neutrophils # Man Lymphocytes # (Manual) Monocytes # (Manual) Eosinophils # (Manual) Nucleated RBC % Basophils # (Manual) PT INR APTT Heparin Anti-Xa Level ABG pH POC ABG pO2 ABG pO2 ABG HCO3 ABG O2 Saturation ABG Base Excess POC ABG pCO2 ABG Hemoglobin ABG Oxyhemoglobin ABG Chloride ABG Glucose Oxyhemoglobin Sodium 151 H Potassium Chloride Carbon Dioxide 34 H BUN Creatinine 0.7 L Glucose POC Glucose 112 H Lactic Acid Calcium Phosphorus Magnesium AST ALT 59 H Lactate Dehydrogenase Total Bilirubin Direct Bilirubin CK-MB (CK-2) C-Reactive Protein NT-Pro-B Natriuret Pep Total Protein 5.8 L Albumin 2.6 L Arterial Blood Glucose Urine WBC (Auto) Urine Creatinine 01/05/20 01/06/20 01/06/20 16:04 00:23 04:44 WBC RBC 3.36 L Hgb 8.9 L Hct 28.7 L MCHC 31 L RDW 16.9 H MCV MCH 26 L Lymph % (Auto) [place] % (Auto) 9.4 H [place] # Eos # Lymph # (Auto) [place] # (Auto) Eos # (Auto) Seg Neutrophils % Seg Neuts % (Manual) Baso # (Auto) Lymphocytes % (Manual) Monocytes % (Manual) Eosinophils % (Manual) Basophils % (Manual) Seg Neutrophils # Seg Neutrophils # Man Lymphocytes # (Manual) Monocytes # (Manual) Eosinophils # (Manual) Nucleated RBC % Basophils # (Manual) PT INR APTT Heparin Anti-Xa Level ABG pH POC ABG pO2 ABG pO2 ABG HCO3 ABG O2 Saturation ABG Base Excess POC ABG pCO2 ABG Hemoglobin ABG Oxyhemoglobin ABG Chloride ABG Glucose Oxyhemoglobin Sodium 151 H Potassium 3.2 L Chloride Carbon Dioxide 34 H BUN Creatinine 0.6 L Glucose POC Glucose 107 H Lactic Acid Calcium Phosphorus Magnesium AST ALT Lactate Dehydrogenase Total Bilirubin Direct Bilirubin CK-MB (CK-2) C-Reactive Protein NT-Pro-B Natriuret Pep Total Protein Albumin Arterial Blood Glucose Urine WBC (Auto) Urine Creatinine 01/06/20 01/06/20 01/06/20 04:44 05:33 12:04 WBC RBC Hgb Hct MCHC RDW MCV MCH Lymph % (Auto) [place] % (Auto) [place] # Eos # Lymph # (Auto) [place] # (Auto) Eos # (Auto) Seg Neutrophils % Seg Neuts % (Manual) Baso # (Auto) Lymphocytes % (Manual) Monocytes % (Manual) Eosinophils % (Manual) Basophils % (Manual) Seg Neutrophils # Seg Neutrophils # Man Lymphocytes # (Manual) Monocytes # (Manual) Eosinophils # (Manual) Nucleated RBC % Basophils # (Manual) PT INR APTT Heparin Anti-Xa Level ABG pH POC ABG pO2 ABG pO2 ABG HCO3 ABG O2 Saturation ABG Base Excess POC ABG pCO2 ABG Hemoglobin ABG Oxyhemoglobin ABG Chloride ABG Glucose Oxyhemoglobin Sodium 151 H Potassium 3.4 L Chloride Carbon Dioxide 33 H BUN Creatinine 0.6 L Glucose 118 H POC Glucose 118 H 123 H Lactic Acid Calcium Phosphorus Magnesium AST ALT Lactate Dehydrogenase Total Bilirubin Direct Bilirubin CK-MB (CK-2) C-Reactive Protein NT-Pro-B Natriuret Pep Total Protein 6.2 L Albumin 2.6 L Arterial Blood Glucose Urine WBC (Auto) Urine Creatinine 10/14/20 10/15/20 10/15/20 17:54 00:06 04:10 WBC RBC 3.42 L Hgb 8.9 L Hct 29.0 L MCHC 31 L RDW 17.1 H MCV MCH 26 L Lymph % (Auto) [place] % (Auto) 8.4 H [place] # Eos # Lymph # (Auto) [place] # (Auto) Eos # (Auto) Seg Neutrophils % Seg Neuts % (Manual) Baso # (Auto) Lymphocytes % (Manual) Monocytes % (Manual) Eosinophils % (Manual) Basophils % (Manual) Seg Neutrophils # Seg Neutrophils # Man Lymphocytes # (Manual) Monocytes # (Manual) Eosinophils # (Manual) Nucleated RBC % Basophils # (Manual) PT INR APTT Heparin Anti-Xa Level ABG pH POC ABG pO2 ABG pO2 ABG HCO3 ABG O2 Saturation ABG Base Excess POC ABG pCO2 ABG Hemoglobin ABG Oxyhemoglobin ABG Chloride ABG Glucose Oxyhemoglobin Sodium Potassium Chloride Carbon Dioxide BUN Creatinine Glucose POC Glucose 112 H 126 H Lactic Acid Calcium Phosphorus Magnesium AST ALT Lactate Dehydrogenase Total Bilirubin Direct Bilirubin CK-MB (CK-2) C-Reactive Protein NT-Pro-B Natriuret Pep Total Protein Albumin Arterial Blood Glucose Urine WBC (Auto) Urine Creatinine 01/07/20 01/07/20 01/07/20 04:10 05:59 12:27 WBC RBC Hgb Hct MCHC RDW MCV MCH Lymph % (Auto) [place] % (Auto) [place] # Eos # Lymph # (Auto) [place] # (Auto) Eos # (Auto) Seg Neutrophils % Seg Neuts % (Manual) Baso # (Auto) Lymphocytes % (Manual) Monocytes % (Manual) Eosinophils % (Manual) Basophils % (Manual) Seg Neutrophils # Seg Neutrophils # Man Lymphocytes # (Manual) Monocytes # (Manual) Eosinophils # (Manual) Nucleated RBC % Basophils # (Manual) PT INR APTT Heparin Anti-Xa Level ABG pH POC ABG pO2 ABG pO2 ABG HCO3 ABG O2 Saturation ABG Base Excess POC ABG pCO2 ABG Hemoglobin ABG Oxyhemoglobin ABG Chloride ABG Glucose Oxyhemoglobin Sodium 153 H Potassium 3.5 L Chloride Carbon Dioxide 34 H BUN Creatinine 0.6 L Glucose 121 H POC Glucose 121 H 126 H Lactic Acid Calcium Phosphorus Magnesium AST ALT Lactate Dehydrogenase Total Bilirubin Direct Bilirubin CK-MB (CK-2) C-Reactive Protein NT-Pro-B Natriuret Pep Total Protein 5.9 L Albumin 2.4 L Arterial Blood Glucose Urine WBC (Auto) Urine Creatinine 01/07/20 01/08/20 01/08/20 18:12 00:03 05:41 WBC RBC Hgb Hct MCHC RDW MCV MCH Lymph % (Auto) [place] % (Auto) [place] # Eos # Lymph # (Auto) [place] # (Auto) Eos # (Auto) Seg Neutrophils % Seg Neuts % (Manual) Baso # (Auto) Lymphocytes % (Manual) Monocytes % (Manual) Eosinophils % (Manual) Basophils % (Manual) Seg Neutrophils # Seg Neutrophils # Man Lymphocytes # (Manual) Monocytes # (Manual) Eosinophils # (Manual) Nucleated RBC % Basophils # (Manual) PT INR APTT Heparin Anti-Xa Level ABG pH POC ABG pO2 ABG pO2 ABG HCO3 ABG O2 Saturation ABG Base Excess POC ABG pCO2 ABG Hemoglobin ABG Oxyhemoglobin ABG Chloride ABG Glucose Oxyhemoglobin Sodium Potassium Chloride Carbon Dioxide BUN Creatinine Glucose POC Glucose 124 H 130 H 138 H Lactic Acid Calcium Phosphorus Magnesium AST ALT Lactate Dehydrogenase Total Bilirubin Direct Bilirubin CK-MB (CK-2) C-Reactive Protein NT-Pro-B Natriuret Pep Total Protein Albumin Arterial Blood Glucose Urine WBC (Auto) Urine Creatinine 01/08/20 01/08/20 01/08/20 09:28 11:42 18:21 WBC RBC Hgb Hct MCHC RDW MCV MCH Lymph % (Auto) [place] % (Auto) [place] # Eos # Lymph # (Auto) [place] # (Auto) Eos # (Auto) Seg Neutrophils % Seg Neuts % (Manual) Baso # (Auto) Lymphocytes % (Manual) Monocytes % (Manual) Eosinophils % (Manual) Basophils % (Manual) Seg Neutrophils # Seg Neutrophils # Man Lymphocytes # (Manual) Monocytes # (Manual) Eosinophils # (Manual) Nucleated RBC % Basophils # (Manual) PT INR APTT Heparin Anti-Xa Level ABG pH POC ABG pO2 ABG pO2 ABG HCO3 ABG O2 Saturation ABG Base Excess POC ABG pCO2 ABG Hemoglobin ABG Oxyhemoglobin ABG Chloride ABG Glucose Oxyhemoglobin Sodium Potassium Chloride Carbon Dioxide BUN Creatinine Glucose POC Glucose 181 H 150 H 129 H Lactic Acid Calcium Phosphorus Magnesium AST ALT Lactate Dehydrogenase Total Bilirubin Direct Bilirubin CK-MB (CK-2) C-Reactive Protein NT-Pro-B Natriuret Pep Total Protein Albumin Arterial Blood Glucose Urine WBC (Auto) Urine Creatinine 01/08/20 01/08/20 01/09/20 19:25 23:55 04:11 WBC RBC 3.43 L Hgb 8.9 L Hct 28.7 L MCHC 31 L RDW 17.6 H MCV MCH 26 L Lymph % (Auto) [place] % (Auto) 8.6 H [place] # Eos # Lymph # (Auto) [place] # (Auto) Eos # (Auto) Seg Neutrophils % Seg Neuts % (Manual) Baso # (Auto) Lymphocytes % (Manual) Monocytes % (Manual) Eosinophils % (Manual) Basophils % (Manual) Seg Neutrophils # Seg Neutrophils # Man Lymphocytes # (Manual) Monocytes # (Manual) Eosinophils # (Manual) Nucleated RBC % Basophils # (Manual) PT INR APTT Heparin Anti-Xa Level ABG pH POC ABG pO2 ABG pO2 ABG HCO3 ABG O2 Saturation ABG Base Excess POC ABG pCO2 ABG Hemoglobin ABG Oxyhemoglobin ABG Chloride ABG Glucose Oxyhemoglobin Sodium Potassium Chloride Carbon Dioxide BUN Creatinine 0.7 L Glucose 117 H POC Glucose 132 H Lactic Acid Calcium Phosphorus Magnesium AST ALT Lactate Dehydrogenase Total Bilirubin Direct Bilirubin CK-MB (CK-2) C-Reactive Protein NT-Pro-B Natriuret Pep Total Protein Albumin Arterial Blood Glucose Urine WBC (Auto) Urine Creatinine 01/09/20 01/09/20 01/09/20 04:11 05:38 22:58 WBC RBC Hgb Hct MCHC RDW MCV MCH Lymph % (Auto) [place] % (Auto) [place] # Eos # Lymph # (Auto) [place] # (Auto) Eos # (Auto) Seg Neutrophils % Seg Neuts % (Manual) Baso # (Auto) Lymphocytes % (Manual) Monocytes % (Manual) Eosinophils % (Manual) Basophils % (Manual) Seg Neutrophils # Seg Neutrophils # Man Lymphocytes # (Manual) Monocytes # (Manual) Eosinophils # (Manual) Nucleated RBC % Basophils # (Manual) PT INR APTT Heparin Anti-Xa Level ABG pH POC ABG pO2 ABG pO2 ABG HCO3 ABG O2 Saturation ABG Base Excess POC ABG pCO2 ABG Hemoglobin ABG Oxyhemoglobin ABG Chloride ABG Glucose Oxyhemoglobin Sodium 147 H Potassium 3.3 L D Chloride Carbon Dioxide 32 H BUN Creatinine 0.6 L Glucose 106 H POC Glucose 107 H 113 H Lactic Acid Calcium Phosphorus Magnesium AST ALT Lactate Dehydrogenase Total Bilirubin Direct Bilirubin CK-MB (CK-2) C-Reactive Protein NT-Pro-B Natriuret Pep Total Protein Albumin Arterial Blood Glucose Urine WBC (Auto) Urine Creatinine 01/10/20 01/10/20 01/10/20 04:05 11:36 17:54 WBC RBC Hgb Hct MCHC RDW MCV MCH Lymph % (Auto) [place] % (Auto) [place] # Eos # Lymph # (Auto) [place] # (Auto) Eos # (Auto) Seg Neutrophils % Seg Neuts % (Manual) Baso # (Auto) Lymphocytes % (Manual) Monocytes % (Manual) Eosinophils % (Manual) Basophils % (Manual) Seg Neutrophils # Seg Neutrophils # Man Lymphocytes # (Manual) Monocytes # (Manual) Eosinophils # (Manual) Nucleated RBC % Basophils # (Manual) PT INR APTT Heparin Anti-Xa Level ABG pH POC ABG pO2 ABG pO2 ABG HCO3 ABG O2 Saturation ABG Base Excess POC ABG pCO2 ABG Hemoglobin ABG Oxyhemoglobin ABG Chloride ABG Glucose Oxyhemoglobin Sodium Potassium Chloride Carbon Dioxide BUN Creatinine 0.7 L Glucose 110 H POC Glucose 129 H 117 H Lactic Acid Calcium Phosphorus Magnesium AST ALT Lactate Dehydrogenase Total Bilirubin Direct Bilirubin CK-MB (CK-2) C-Reactive Protein NT-Pro-B Natriuret Pep Total Protein Albumin Arterial Blood Glucose Urine WBC (Auto) Urine Creatinine 01/10/20 01/11/20 01/11/20 23:52 03:19 12:09 WBC RBC Hgb Hct MCHC RDW MCV MCH Lymph % (Auto) [place] % (Auto) [place] # Eos # Lymph # (Auto) [place] # (Auto) Eos # (Auto) Seg Neutrophils % Seg Neuts % (Manual) Baso # (Auto) Lymphocytes % (Manual) Monocytes % (Manual) Eosinophils % (Manual) Basophils % (Manual) Seg Neutrophils # Seg Neutrophils # Man Lymphocytes # (Manual) Monocytes # (Manual) Eosinophils # (Manual) Nucleated RBC % Basophils # (Manual) PT INR APTT Heparin Anti-Xa Level ABG pH POC ABG pO2 ABG pO2 ABG HCO3 ABG O2 Saturation ABG Base Excess POC ABG pCO2 ABG Hemoglobin ABG Oxyhemoglobin ABG Chloride ABG Glucose Oxyhemoglobin Sodium Potassium Chloride Carbon Dioxide BUN Creatinine Glucose POC Glucose 117 H 136 H 115 H Lactic Acid Calcium Phosphorus Magnesium AST ALT Lactate Dehydrogenase Total Bilirubin Direct Bilirubin CK-MB (CK-2) C-Reactive Protein NT-Pro-B Natriuret Pep Total Protein Albumin Arterial Blood Glucose Urine WBC (Auto) Urine Creatinine 01/11/20 01/11/20 01/12/20 18:27 23:28 00:23 WBC RBC Hgb 9.8 L Hct 31.6 L MCHC 31 L RDW 17.8 H MCV 83 L MCH 26 L Lymph % (Auto) [place] % (Auto) 8.0 H [place] # Eos # Lymph # (Auto) [place] # (Auto) Eos # (Auto) Seg Neutrophils % Seg Neuts % (Manual) Baso # (Auto) Lymphocytes % (Manual) Monocytes % (Manual) Eosinophils % (Manual) Basophils % (Manual) Seg Neutrophils # Seg Neutrophils # Man Lymphocytes # (Manual) Monocytes # (Manual) Eosinophils # (Manual) Nucleated RBC % Basophils # (Manual) PT INR APTT Heparin Anti-Xa Level ABG pH POC ABG pO2 ABG pO2 ABG HCO3 ABG O2 Saturation ABG Base Excess POC ABG pCO2 ABG Hemoglobin ABG Oxyhemoglobin ABG Chloride ABG Glucose Oxyhemoglobin Sodium Potassium Chloride Carbon Dioxide BUN Creatinine Glucose POC Glucose 118 H 122 H Lactic Acid Calcium Phosphorus Magnesium AST ALT Lactate Dehydrogenase Total Bilirubin Direct Bilirubin CK-MB (CK-2) C-Reactive Protein NT-Pro-B Natriuret Pep Total Protein Albumin Arterial Blood Glucose Urine WBC (Auto) Urine Creatinine 01/12/20 01/12/20 01/12/20 00:23 04:18 04:18 WBC RBC Hgb 9.6 L Hct 30.9 L MCHC 31 L RDW 17.3 H MCV 81 L MCH 25 L Lymph % (Auto) [place] % (Auto) [place] # Eos # Lymph # (Auto) [place] # (Auto) Eos # (Auto) Seg Neutrophils % Seg Neuts % (Manual) Baso # (Auto) Lymphocytes % (Manual) Monocytes % (Manual) Eosinophils % (Manual) Basophils % (Manual) Seg Neutrophils # Seg Neutrophils # Man Lymphocytes # (Manual) Monocytes # (Manual) Eosinophils # (Manual) Nucleated RBC % Basophils # (Manual) PT INR APTT Heparin Anti-Xa Level ABG pH POC ABG pO2 ABG pO2 ABG HCO3 ABG O2 Saturation ABG Base Excess POC ABG pCO2 ABG Hemoglobin ABG Oxyhemoglobin ABG Chloride ABG Glucose Oxyhemoglobin Sodium Potassium Chloride Carbon Dioxide BUN Creatinine 0.7 L 0.7 L Glucose 111 H 108 H POC Glucose Lactic Acid Calcium Phosphorus Magnesium AST ALT Lactate Dehydrogenase Total Bilirubin Direct Bilirubin CK-MB (CK-2) C-Reactive Protein NT-Pro-B Natriuret Pep Total Protein Albumin 2.6 L Arterial Blood Glucose Urine WBC (Auto) Urine Creatinine 01/12/20 01/12/20 01/12/20 06:03 12:27 13:58 WBC RBC Hgb Hct MCHC RDW MCV MCH Lymph % (Auto) [place] % (Auto) [place] # Eos # Lymph # (Auto) [place] # (Auto) Eos # (Auto) Seg Neutrophils % Seg Neuts % (Manual) Baso # (Auto) Lymphocytes % (Manual) Monocytes % (Manual) Eosinophils % (Manual) Basophils % (Manual) Seg Neutrophils # Seg Neutrophils # Man Lymphocytes # (Manual) Monocytes # (Manual) Eosinophils # (Manual) Nucleated RBC % Basophils # (Manual) PT INR APTT Heparin Anti-Xa Level ABG pH 7.453 H POC ABG pO2 76.6 L ABG pO2 ABG HCO3 ABG O2 Saturation ABG Base Excess POC ABG pCO2 ABG Hemoglobin 10.3 L ABG Oxyhemoglobin ABG Chloride ABG Glucose 99 H Oxyhemoglobin Sodium Potassium Chloride Carbon Dioxide BUN Creatinine Glucose POC Glucose 128 H 121 H Lactic Acid Calcium Phosphorus Magnesium AST ALT Lactate Dehydrogenase Total Bilirubin Direct Bilirubin CK-MB (CK-2) C-Reactive Protein NT-Pro-B Natriuret Pep Total Protein Albumin Arterial Blood Glucose 99 H Urine WBC (Auto) Urine Creatinine 01/12/20 01/13/20 01/13/20 18:24 12:01 17:46 WBC RBC Hgb Hct MCHC RDW MCV MCH Lymph % (Auto) [place] % (Auto) [place] # Eos # Lymph # (Auto) [place] # (Auto) Eos # (Auto) Seg Neutrophils % Seg Neuts % (Manual) Baso # (Auto) Lymphocytes % (Manual) Monocytes % (Manual) Eosinophils % (Manual) Basophils % (Manual) Seg Neutrophils # Seg Neutrophils # Man Lymphocytes # (Manual) Monocytes # (Manual) Eosinophils # (Manual) Nucleated RBC % Basophils # (Manual) PT INR APTT Heparin Anti-Xa Level ABG pH POC ABG pO2 ABG pO2 ABG HCO3 ABG O2 Saturation ABG Base Excess POC ABG pCO2 ABG Hemoglobin ABG Oxyhemoglobin ABG Chloride ABG Glucose Oxyhemoglobin Sodium Potassium Chloride Carbon Dioxide BUN Creatinine Glucose POC Glucose 119 H 107 H 124 H Lactic Acid Calcium Phosphorus Magnesium AST ALT Lactate Dehydrogenase Total Bilirubin Direct Bilirubin CK-MB (CK-2) C-Reactive Protein NT-Pro-B Natriuret Pep Total Protein Albumin Arterial Blood Glucose Urine WBC (Auto) Urine Creatinine 01/13/20 01/14/20 01/14/20 20:40 00:10 05:33 WBC RBC Hgb Hct MCHC RDW MCV MCH Lymph % (Auto) [place] % (Auto) [place] # Eos # Lymph # (Auto) [place] # (Auto) Eos # (Auto) Seg Neutrophils % Seg Neuts % (Manual) Baso # (Auto) Lymphocytes % (Manual) Monocytes % (Manual) Eosinophils % (Manual) Basophils % (Manual) Seg Neutrophils # Seg Neutrophils # Man Lymphocytes # (Manual) Monocytes # (Manual) Eosinophils # (Manual) Nucleated RBC % Basophils # (Manual) PT INR APTT Heparin Anti-Xa Level ABG pH POC ABG pO2 ABG pO2 65.3 L ABG HCO3 31.8 H ABG O2 Saturation 93.5 L ABG Base Excess 6.7 H POC ABG pCO2 ABG Hemoglobin 13.3 L ABG Oxyhemoglobin ABG Chloride ABG Glucose Oxyhemoglobin 90.9 L Sodium Potassium Chloride Carbon Dioxide BUN Creatinine Glucose POC Glucose 111 H 111 H Lactic Acid Calcium Phosphorus Magnesium AST ALT Lactate Dehydrogenase Total Bilirubin Direct Bilirubin CK-MB (CK-2) C-Reactive Protein NT-Pro-B Natriuret Pep Total Protein Albumin Arterial Blood Glucose Urine WBC (Auto) Urine Creatinine 01/14/20 01/14/20 01/14/20 12:10 16:14 16:14 WBC RBC Hgb 10.6 L Hct 34.2 L MCHC 31 L RDW 18.3 H MCV 83 L MCH 26 L Lymph % (Auto) [place] % (Auto) 7.4 H [place] # Eos # Lymph # (Auto) [place] # (Auto) Eos # (Auto) Seg Neutrophils % 71.9 H Seg Neuts % (Manual) Baso # (Auto) Lymphocytes % (Manual) Monocytes % (Manual) Eosinophils % (Manual) Basophils % (Manual) Seg Neutrophils # Seg Neutrophils # Man Lymphocytes # (Manual) Monocytes # (Manual) Eosinophils # (Manual) Nucleated RBC % Basophils # (Manual) PT INR APTT Heparin Anti-Xa Level ABG pH POC ABG pO2 ABG pO2 ABG HCO3 ABG O2 Saturation ABG Base Excess POC ABG pCO2 ABG Hemoglobin ABG Oxyhemoglobin ABG Chloride ABG Glucose Oxyhemoglobin Sodium Potassium Chloride Carbon Dioxide 31 H BUN Creatinine 0.6 L Glucose 131 H POC Glucose 139 H Lactic Acid Calcium Phosphorus Magnesium AST ALT Lactate Dehydrogenase Total Bilirubin Direct Bilirubin CK-MB (CK-2) C-Reactive Protein NT-Pro-B Natriuret Pep Total Protein Albumin Arterial Blood Glucose Urine WBC (Auto) Urine Creatinine 01/14/20 01/15/20 01/15/20 18:05 00:52 05:35 WBC RBC Hgb Hct MCHC RDW MCV MCH Lymph % (Auto) [place] % (Auto) [place] # Eos # Lymph # (Auto) [place] # (Auto) Eos # (Auto) Seg Neutrophils % Seg Neuts % (Manual) Baso # (Auto) Lymphocytes % (Manual) Monocytes % (Manual) Eosinophils % (Manual) Basophils % (Manual) Seg Neutrophils # Seg Neutrophils # Man Lymphocytes # (Manual) Monocytes # (Manual) Eosinophils # (Manual) Nucleated RBC % Basophils # (Manual) PT INR APTT Heparin Anti-Xa Level ABG pH POC ABG pO2 ABG pO2 ABG HCO3 ABG O2 Saturation ABG Base Excess POC ABG pCO2 ABG Hemoglobin ABG Oxyhemoglobin ABG Chloride ABG Glucose Oxyhemoglobin Sodium Potassium Chloride Carbon Dioxide BUN Creatinine Glucose POC Glucose 147 H 140 H 159 H Lactic Acid Calcium Phosphorus Magnesium AST ALT Lactate Dehydrogenase Total Bilirubin Direct Bilirubin CK-MB (CK-2) C-Reactive Protein NT-Pro-B Natriuret Pep Total Protein Albumin Arterial Blood Glucose Urine WBC (Auto) Urine Creatinine 01/15/20 01/15/20 01/16/20 12:52 17:43 00:32 WBC RBC Hgb Hct MCHC RDW MCV MCH Lymph % (Auto) [place] % (Auto) [place] # Eos # Lymph # (Auto) [place] # (Auto) Eos # (Auto) Seg Neutrophils % Seg Neuts % (Manual) Baso # (Auto) Lymphocytes % (Manual) Monocytes % (Manual) Eosinophils % (Manual) Basophils % (Manual) Seg Neutrophils # Seg Neutrophils # Man Lymphocytes # (Manual) Monocytes # (Manual) Eosinophils # (Manual) Nucleated RBC % Basophils # (Manual) PT INR APTT Heparin Anti-Xa Level ABG pH POC ABG pO2 ABG pO2 ABG HCO3 ABG O2 Saturation ABG Base Excess POC ABG pCO2 ABG Hemoglobin ABG Oxyhemoglobin ABG Chloride ABG Glucose Oxyhemoglobin Sodium Potassium Chloride Carbon Dioxide BUN Creatinine Glucose POC Glucose 164 H 167 H 153 H Lactic Acid Calcium Phosphorus Magnesium AST ALT Lactate Dehydrogenase Total Bilirubin Direct Bilirubin CK-MB (CK-2) C-Reactive Protein NT-Pro-B Natriuret Pep Total Protein Albumin Arterial Blood Glucose Urine WBC (Auto) Urine Creatinine 01/16/20 01/16/20 01/17/20 05:46 11:48 06:38 WBC RBC Hgb Hct MCHC RDW MCV MCH Lymph % (Auto) [place] % (Auto) [place] # Eos # Lymph # (Auto) [place] # (Auto) Eos # (Auto) Seg Neutrophils % Seg Neuts % (Manual) Baso # (Auto) Lymphocytes % (Manual) Monocytes % (Manual) Eosinophils % (Manual) Basophils % (Manual) Seg Neutrophils # Seg Neutrophils # Man Lymphocytes # (Manual) Monocytes # (Manual) Eosinophils # (Manual) Nucleated RBC % Basophils # (Manual) PT INR APTT Heparin Anti-Xa Level ABG pH POC ABG pO2 ABG pO2 ABG HCO3 ABG O2 Saturation ABG Base Excess POC ABG pCO2 ABG Hemoglobin ABG Oxyhemoglobin ABG Chloride ABG Glucose Oxyhemoglobin Sodium Potassium Chloride Carbon Dioxide BUN Creatinine Glucose POC Glucose 163 H 155 H 116 H Lactic Acid Calcium Phosphorus Magnesium AST ALT Lactate Dehydrogenase Total Bilirubin Direct Bilirubin CK-MB (CK-2) C-Reactive Protein NT-Pro-B Natriuret Pep Total Protein Albumin Arterial Blood Glucose Urine WBC (Auto) Urine Creatinine 01/17/20 01/17/20 01/18/20 11:36 17:43 00:12 WBC RBC Hgb Hct MCHC RDW MCV MCH Lymph % (Auto) [place] % (Auto) [place] # Eos # Lymph # (Auto) [place] # (Auto) Eos # (Auto) Seg Neutrophils % Seg Neuts % (Manual) Baso # (Auto) Lymphocytes % (Manual) Monocytes % (Manual) Eosinophils % (Manual) Basophils % (Manual) Seg Neutrophils # Seg Neutrophils # Man Lymphocytes # (Manual) Monocytes # (Manual) Eosinophils # (Manual) Nucleated RBC % Basophils # (Manual) PT INR APTT Heparin Anti-Xa Level ABG pH POC ABG pO2 ABG pO2 ABG HCO3 ABG O2 Saturation ABG Base Excess POC ABG pCO2 ABG Hemoglobin ABG Oxyhemoglobin ABG Chloride ABG Glucose Oxyhemoglobin Sodium Potassium Chloride Carbon Dioxide BUN Creatinine Glucose POC Glucose 110 H 134 H 108 H Lactic Acid Calcium Phosphorus Magnesium AST ALT Lactate Dehydrogenase Total Bilirubin Direct Bilirubin CK-MB (CK-2) C-Reactive Protein NT-Pro-B Natriuret Pep Total Protein Albumin Arterial Blood Glucose Urine WBC (Auto) Urine Creatinine 01/18/20 01/18/20 01/18/20 05:37 06:46 06:46 WBC RBC Hgb 10.1 L Hct 32.2 L MCHC 31 L RDW 18.1 H MCV 81 L MCH 25 L Lymph % (Auto) [place] % (Auto) [place] # Eos # Lymph # (Auto) [place] # (Auto) Eos # (Auto) Seg Neutrophils % 71.9 H Seg Neuts % (Manual) Baso # (Auto) Lymphocytes % (Manual) Monocytes % (Manual) Eosinophils % (Manual) Basophils % (Manual) Seg Neutrophils # Seg Neutrophils # Man Lymphocytes # (Manual) Monocytes # (Manual) Eosinophils # (Manual) Nucleated RBC % Basophils # (Manual) PT INR APTT Heparin Anti-Xa Level ABG pH POC ABG pO2 ABG pO2 ABG HCO3 ABG O2 Saturation ABG Base Excess POC ABG pCO2 ABG Hemoglobin ABG Oxyhemoglobin ABG Chloride ABG Glucose Oxyhemoglobin Sodium Potassium Chloride Carbon Dioxide BUN Creatinine 0.7 L Glucose 155 H POC Glucose 168 H Lactic Acid Calcium Phosphorus Magnesium AST ALT Lactate Dehydrogenase Total Bilirubin Direct Bilirubin CK-MB (CK-2) C-Reactive Protein NT-Pro-B Natriuret Pep Total Protein Albumin Arterial Blood Glucose Urine WBC (Auto) Urine Creatinine 01/18/20 01/18/20 01/18/20 12:05 17:14 23:28 WBC RBC Hgb Hct MCHC RDW MCV MCH Lymph % (Auto) [place] % (Auto) [place] # Eos # Lymph # (Auto) [place] # (Auto) Eos # (Auto) Seg Neutrophils % Seg Neuts % (Manual) Baso # (Auto) Lymphocytes % (Manual) Monocytes % (Manual) Eosinophils % (Manual) Basophils % (Manual) Seg Neutrophils # Seg Neutrophils # Man Lymphocytes # (Manual) Monocytes # (Manual) Eosinophils # (Manual) Nucleated RBC % Basophils # (Manual) PT INR APTT Heparin Anti-Xa Level ABG pH POC ABG pO2 ABG pO2 ABG HCO3 ABG O2 Saturation ABG Base Excess POC ABG pCO2 ABG Hemoglobin ABG Oxyhemoglobin ABG Chloride ABG Glucose Oxyhemoglobin Sodium Potassium Chloride Carbon Dioxide BUN Creatinine Glucose POC Glucose 128 H 126 H 128 H Lactic Acid Calcium Phosphorus Magnesium AST ALT Lactate Dehydrogenase Total Bilirubin Direct Bilirubin CK-MB (CK-2) C-Reactive Protein NT-Pro-B Natriuret Pep Total Protein Albumin Arterial Blood Glucose Urine WBC (Auto) Urine Creatinine 01/19/20 01/19/20 01/19/20 05:39 12:33 17:36 WBC RBC Hgb Hct MCHC RDW MCV MCH Lymph % (Auto) [place] % (Auto) [place] # Eos # Lymph # (Auto) [place] # (Auto) Eos # (Auto) Seg Neutrophils % Seg Neuts % (Manual) Baso # (Auto) Lymphocytes % (Manual) Monocytes % (Manual) Eosinophils % (Manual) Basophils % (Manual) Seg Neutrophils # Seg Neutrophils # Man Lymphocytes # (Manual) Monocytes # (Manual) Eosinophils # (Manual) Nucleated RBC % Basophils # (Manual) PT INR APTT Heparin Anti-Xa Level ABG pH POC ABG pO2 ABG pO2 ABG HCO3 ABG O2 Saturation ABG Base Excess POC ABG pCO2 ABG Hemoglobin ABG Oxyhemoglobin ABG Chloride ABG Glucose Oxyhemoglobin Sodium Potassium Chloride Carbon Dioxide BUN Creatinine Glucose POC Glucose 164 H 171 H 152 H Lactic Acid Calcium Phosphorus Magnesium AST ALT Lactate Dehydrogenase Total Bilirubin Direct Bilirubin CK-MB (CK-2) C-Reactive Protein NT-Pro-B Natriuret Pep Total Protein Albumin Arterial Blood Glucose Urine WBC (Auto) Urine Creatinine 01/20/20 01/20/20 01/20/20 00:12 05:20 05:35 WBC RBC Hgb 9.2 L Hct 29.4 L MCHC 31 L RDW 17.9 H MCV 81 L MCH 25 L Lymph % (Auto) [place] % (Auto) [place] # Eos # Lymph # (Auto) [place] # (Auto) Eos # (Auto) Seg Neutrophils % Seg Neuts % (Manual) Baso # (Auto) Lymphocytes % (Manual) Monocytes % (Manual) Eosinophils % (Manual) Basophils % (Manual) Seg Neutrophils # Seg Neutrophils # Man Lymphocytes # (Manual) Monocytes # (Manual) Eosinophils # (Manual) Nucleated RBC % Basophils # (Manual) PT INR APTT Heparin Anti-Xa Level ABG pH POC ABG pO2 ABG pO2 ABG HCO3 ABG O2 Saturation ABG Base Excess POC ABG pCO2 ABG Hemoglobin ABG Oxyhemoglobin ABG Chloride ABG Glucose Oxyhemoglobin Sodium Potassium Chloride Carbon Dioxide BUN Creatinine Glucose POC Glucose 120 H 136 H Lactic Acid Calcium Phosphorus Magnesium AST ALT Lactate Dehydrogenase Total Bilirubin Direct Bilirubin CK-MB (CK-2) C-Reactive Protein NT-Pro-B Natriuret Pep Total Protein Albumin Arterial Blood Glucose Urine WBC (Auto) Urine Creatinine 01/20/20 01/20/20 01/20/20 05:40 11:58 14:55 WBC RBC Hgb 9.0 L Hct 28.3 L MCHC RDW MCV MCH Lymph % (Auto) [place] % (Auto) [place] # Eos # Lymph # (Auto) [place] # (Auto) Eos # (Auto) Seg Neutrophils % Seg Neuts % (Manual) Baso # (Auto) Lymphocytes % (Manual) Monocytes % (Manual) Eosinophils % (Manual) Basophils % (Manual) Seg Neutrophils # Seg Neutrophils # Man Lymphocytes # (Manual) Monocytes # (Manual) Eosinophils # (Manual) Nucleated RBC % Basophils # (Manual) PT INR APTT Heparin Anti-Xa Level ABG pH POC ABG pO2 ABG pO2 ABG HCO3 ABG O2 Saturation ABG Base Excess POC ABG pCO2 ABG Hemoglobin ABG Oxyhemoglobin ABG Chloride ABG Glucose Oxyhemoglobin Sodium Potassium Chloride Carbon Dioxide 32 H BUN 22 H Creatinine 0.7 L Glucose 128 H POC Glucose 152 H Lactic Acid Calcium Phosphorus Magnesium AST ALT Lactate Dehydrogenase Total Bilirubin Direct Bilirubin CK-MB (CK-2) C-Reactive Protein NT-Pro-B Natriuret Pep Total Protein Albumin Arterial Blood Glucose Urine WBC (Auto) Urine Creatinine 01/20/20 01/20/20 01/20/20 14:55 18:14 21:35 WBC RBC Hgb Hct MCHC RDW MCV MCH Lymph % (Auto) [place] % (Auto) [place] # Eos # Lymph # (Auto) [place] # (Auto) Eos # (Auto) Seg Neutrophils % Seg Neuts % (Manual) Baso # (Auto) Lymphocytes % (Manual) Monocytes % (Manual) Eosinophils % (Manual) Basophils % (Manual) Seg Neutrophils # Seg Neutrophils # Man Lymphocytes # (Manual) Monocytes # (Manual) Eosinophils # (Manual) Nucleated RBC % Basophils # (Manual) PT 20.4 H INR 1.72 H APTT 40.6 H Heparin Anti-Xa Level > 2.00 H ABG pH POC ABG pO2 ABG pO2 ABG HCO3 ABG O2 Saturation ABG Base Excess POC ABG pCO2 ABG Hemoglobin ABG Oxyhemoglobin ABG Chloride ABG Glucose Oxyhemoglobin Sodium Potassium Chloride Carbon Dioxide BUN Creatinine Glucose POC Glucose 150 H Lactic Acid Calcium Phosphorus Magnesium AST ALT Lactate Dehydrogenase Total Bilirubin Direct Bilirubin CK-MB (CK-2) C-Reactive Protein NT-Pro-B Natriuret Pep Total Protein Albumin Arterial Blood Glucose Urine WBC (Auto) Urine Creatinine 01/21/20 01/21/20 01/21/20 00:30 05:47 05:59 WBC RBC Hgb Hct MCHC RDW MCV MCH Lymph % (Auto) [place] % (Auto) [place] # Eos # Lymph # (Auto) [place] # (Auto) Eos # (Auto) Seg Neutrophils % Seg Neuts % (Manual) Baso # (Auto) Lymphocytes % (Manual) Monocytes % (Manual) Eosinophils % (Manual) Basophils % (Manual) Seg Neutrophils # Seg Neutrophils # Man Lymphocytes # (Manual) Monocytes # (Manual) Eosinophils # (Manual) Nucleated RBC % Basophils # (Manual) PT INR APTT Heparin Anti-Xa Level 1.93 H ABG pH POC ABG pO2 ABG pO2 ABG HCO3 ABG O2 Saturation ABG Base Excess POC ABG pCO2 ABG Hemoglobin ABG Oxyhemoglobin ABG Chloride ABG Glucose Oxyhemoglobin Sodium Potassium Chloride Carbon Dioxide BUN Creatinine Glucose POC Glucose 126 H 148 H Lactic Acid Calcium Phosphorus Magnesium AST ALT Lactate Dehydrogenase Total Bilirubin Direct Bilirubin CK-MB (CK-2) C-Reactive Protein NT-Pro-B Natriuret Pep Total Protein Albumin Arterial Blood Glucose Urine WBC (Auto) Urine Creatinine 01/21/20 01/21/20 01/21/20 12:32 18:20 23:54 WBC RBC Hgb Hct MCHC RDW MCV MCH Lymph % (Auto) [place] % (Auto) [place] # Eos # Lymph # (Auto) [place] # (Auto) Eos # (Auto) Seg Neutrophils % Seg Neuts % (Manual) Baso # (Auto) Lymphocytes % (Manual) Monocytes % (Manual) Eosinophils % (Manual) Basophils % (Manual) Seg Neutrophils # Seg Neutrophils # Man Lymphocytes # (Manual) Monocytes # (Manual) Eosinophils # (Manual) Nucleated RBC % Basophils # (Manual) PT INR APTT Heparin Anti-Xa Level 1.28 H ABG pH POC ABG pO2 ABG pO2 ABG HCO3 ABG O2 Saturation ABG Base Excess POC ABG pCO2 ABG Hemoglobin ABG Oxyhemoglobin ABG Chloride ABG Glucose Oxyhemoglobin Sodium Potassium Chloride Carbon Dioxide BUN Creatinine Glucose POC Glucose 112 H 146 H Lactic Acid Calcium Phosphorus Magnesium AST ALT Lactate Dehydrogenase Total Bilirubin Direct Bilirubin CK-MB (CK-2) C-Reactive Protein NT-Pro-B Natriuret Pep Total Protein Albumin Arterial Blood Glucose Urine WBC (Auto) Urine Creatinine 01/22/20 01/22/20 01/22/20 04:45 04:45 05:48 WBC RBC Hgb 9.3 L Hct 29.0 L MCHC RDW MCV MCH Lymph % (Auto) [place] % (Auto) [place] # Eos # Lymph # (Auto) [place] # (Auto) Eos # (Auto) Seg Neutrophils % Seg Neuts % (Manual) Baso # (Auto) Lymphocytes % (Manual) Monocytes % (Manual) Eosinophils % (Manual) Basophils % (Manual) Seg Neutrophils # Seg Neutrophils # Man Lymphocytes # (Manual) Monocytes # (Manual) Eosinophils # (Manual) Nucleated RBC % Basophils # (Manual) PT INR APTT Heparin Anti-Xa Level 1.34 H ABG pH POC ABG pO2 ABG pO2 ABG HCO3 ABG O2 Saturation ABG Base Excess POC ABG pCO2 ABG Hemoglobin ABG Oxyhemoglobin ABG Chloride ABG Glucose Oxyhemoglobin Sodium Potassium Chloride Carbon Dioxide BUN Creatinine Glucose POC Glucose 142 H Lactic Acid Calcium Phosphorus Magnesium AST ALT Lactate Dehydrogenase Total Bilirubin Direct Bilirubin CK-MB (CK-2) C-Reactive Protein NT-Pro-B Natriuret Pep Total Protein Albumin Arterial Blood Glucose Urine WBC (Auto) Urine Creatinine 01/22/20 01/22/20 01/22/20 08:09 08:22 09:58 WBC RBC Hgb Hct MCHC RDW MCV MCH Lymph % (Auto) [place] % (Auto) [place] # Eos # Lymph # (Auto) [place] # (Auto) Eos # (Auto) Seg Neutrophils % Seg Neuts % (Manual) Baso # (Auto) Lymphocytes % (Manual) Monocytes % (Manual) Eosinophils % (Manual) Basophils % (Manual) Seg Neutrophils # Seg Neutrophils # Man Lymphocytes # (Manual) Monocytes # (Manual) Eosinophils # (Manual) Nucleated RBC % Basophils # (Manual) PT 16.9 H INR 1.34 H APTT Heparin Anti-Xa Level ABG pH POC ABG pO2 ABG pO2 ABG HCO3 ABG O2 Saturation ABG Base Excess POC ABG pCO2 ABG Hemoglobin ABG Oxyhemoglobin ABG Chloride ABG Glucose Oxyhemoglobin Sodium Potassium Chloride 97.8 L Carbon Dioxide BUN 29 H Creatinine Glucose 128 H POC Glucose 131 H Lactic Acid Calcium Phosphorus Magnesium AST ALT Lactate Dehydrogenase Total Bilirubin Direct Bilirubin CK-MB (CK-2) C-Reactive Protein NT-Pro-B Natriuret Pep Total Protein Albumin Arterial Blood Glucose Urine WBC (Auto) Urine Creatinine 01/22/20 01/22/20 01/22/20 12:44 16:13 18:18 WBC RBC Hgb Hct MCHC RDW MCV MCH Lymph % (Auto) [place] % (Auto) [place] # Eos # Lymph # (Auto) [place] # (Auto) Eos # (Auto) Seg Neutrophils % Seg Neuts % (Manual) Baso # (Auto) Lymphocytes % (Manual) Monocytes % (Manual) Eosinophils % (Manual) Basophils % (Manual) Seg Neutrophils # Seg Neutrophils # Man Lymphocytes # (Manual) Monocytes # (Manual) Eosinophils # (Manual) Nucleated RBC % Basophils # (Manual) PT INR APTT Heparin Anti-Xa Level ABG pH POC ABG pO2 ABG pO2 ABG HCO3 ABG O2 Saturation ABG Base Excess POC ABG pCO2 ABG Hemoglobin ABG Oxyhemoglobin ABG Chloride ABG Glucose Oxyhemoglobin Sodium Potassium Chloride Carbon Dioxide BUN Creatinine Glucose POC Glucose 156 H 133 H 155 H Lactic Acid Calcium Phosphorus Magnesium AST ALT Lactate Dehydrogenase Total Bilirubin Direct Bilirubin CK-MB (CK-2) C-Reactive Protein NT-Pro-B Natriuret Pep Total Protein Albumin Arterial Blood Glucose Urine WBC (Auto) Urine Creatinine 01/22/20 01/23/20 01/23/20 23:22 05:37 12:59 WBC RBC Hgb Hct MCHC RDW MCV MCH Lymph % (Auto) [place] % (Auto) [place] # Eos # Lymph # (Auto) [place] # (Auto) Eos # (Auto) Seg Neutrophils % Seg Neuts % (Manual) Baso # (Auto) Lymphocytes % (Manual) Monocytes % (Manual) Eosinophils % (Manual) Basophils % (Manual) Seg Neutrophils # Seg Neutrophils # Man Lymphocytes # (Manual) Monocytes # (Manual) Eosinophils # (Manual) Nucleated RBC % Basophils # (Manual) PT INR APTT Heparin Anti-Xa Level ABG pH POC ABG pO2 ABG pO2 ABG HCO3 ABG O2 Saturation ABG Base Excess POC ABG pCO2 ABG Hemoglobin ABG Oxyhemoglobin ABG Chloride ABG Glucose Oxyhemoglobin Sodium Potassium Chloride Carbon Dioxide BUN Creatinine Glucose POC Glucose 148 H 163 H 175 H Lactic Acid Calcium Phosphorus Magnesium AST ALT Lactate Dehydrogenase Total Bilirubin Direct Bilirubin CK-MB (CK-2) C-Reactive Protein NT-Pro-B Natriuret Pep Total Protein Albumin Arterial Blood Glucose Urine WBC (Auto) Urine Creatinine 01/23/20 01/23/20 01/24/20 17:28 23:56 04:30 WBC RBC 3.46 L Hgb 8.8 L Hct 27.8 L MCHC RDW 18.2 H MCV 81 L MCH 25 L Lymph % (Auto) [place] % (Auto) 7.8 H [place] # Eos # Lymph # (Auto) [place] # (Auto) Eos # (Auto) Seg Neutrophils % Seg Neuts % (Manual) Baso # (Auto) Lymphocytes % (Manual) Monocytes % (Manual) Eosinophils % (Manual) Basophils % (Manual) Seg Neutrophils # Seg Neutrophils # Man Lymphocytes # (Manual) Monocytes # (Manual) Eosinophils # (Manual) Nucleated RBC % Basophils # (Manual) PT INR APTT Heparin Anti-Xa Level ABG pH POC ABG pO2 ABG pO2 ABG HCO3 ABG O2 Saturation ABG Base Excess POC ABG pCO2 ABG Hemoglobin ABG Oxyhemoglobin ABG Chloride ABG Glucose Oxyhemoglobin Sodium Potassium Chloride Carbon Dioxide BUN Creatinine Glucose POC Glucose 165 H 177 H Lactic Acid Calcium Phosphorus Magnesium AST ALT Lactate Dehydrogenase Total Bilirubin Direct Bilirubin CK-MB (CK-2) C-Reactive Protein NT-Pro-B Natriuret Pep Total Protein Albumin Arterial Blood Glucose Urine WBC (Auto) Urine Creatinine 01/24/20 01/24/20 01/24/20 04:30 07:18 12:06 WBC RBC Hgb Hct MCHC RDW MCV MCH Lymph % (Auto) [place] % (Auto) [place] # Eos # Lymph # (Auto) [place] # (Auto) Eos # (Auto) Seg Neutrophils % Seg Neuts % (Manual) Baso # (Auto) Lymphocytes % (Manual) Monocytes % (Manual) Eosinophils % (Manual) Basophils % (Manual) Seg Neutrophils # Seg Neutrophils # Man Lymphocytes # (Manual) Monocytes # (Manual) Eosinophils # (Manual) Nucleated RBC % Basophils # (Manual) PT INR APTT Heparin Anti-Xa Level ABG pH POC ABG pO2 ABG pO2 ABG HCO3 ABG O2 Saturation ABG Base Excess POC ABG pCO2 ABG Hemoglobin ABG Oxyhemoglobin ABG Chloride ABG Glucose Oxyhemoglobin Sodium Potassium Chloride 97.9 L Carbon Dioxide BUN 31 H Creatinine Glucose 146 H POC Glucose 151 H 133 H Lactic Acid Calcium Phosphorus Magnesium AST ALT Lactate Dehydrogenase Total Bilirubin Direct Bilirubin CK-MB (CK-2) C-Reactive Protein NT-Pro-B Natriuret Pep Total Protein Albumin Arterial Blood Glucose Urine WBC (Auto) Urine Creatinine 01/24/20 01/25/20 01/25/20 17:36 00:08 04:25 WBC RBC 3.50 L Hgb 8.7 L Hct 27.9 L MCHC 31 L RDW 18.2 H MCV 80 L MCH 25 L Lymph % (Auto) [place] % (Auto) 8.5 H [place] # Eos # Lymph # (Auto) [place] # (Auto) Eos # (Auto) Seg Neutrophils % Seg Neuts % (Manual) Baso # (Auto) Lymphocytes % (Manual) Monocytes % (Manual) Eosinophils % (Manual) Basophils % (Manual) Seg Neutrophils # Seg Neutrophils # Man Lymphocytes # (Manual) Monocytes # (Manual) Eosinophils # (Manual) Nucleated RBC % Basophils # (Manual) PT INR APTT Heparin Anti-Xa Level ABG pH POC ABG pO2 ABG pO2 ABG HCO3 ABG O2 Saturation ABG Base Excess POC ABG pCO2 ABG Hemoglobin ABG Oxyhemoglobin ABG Chloride ABG Glucose Oxyhemoglobin Sodium Potassium Chloride Carbon Dioxide BUN Creatinine Glucose POC Glucose 133 H 129 H Lactic Acid Calcium Phosphorus Magnesium AST ALT Lactate Dehydrogenase Total Bilirubin Direct Bilirubin CK-MB (CK-2) C-Reactive Protein NT-Pro-B Natriuret Pep Total Protein Albumin Arterial Blood Glucose Urine WBC (Auto) Urine Creatinine 01/25/20 01/25/20 01/25/20 04:25 05:38 11:52 WBC RBC Hgb Hct MCHC RDW MCV MCH Lymph % (Auto) [place] % (Auto) [place] # Eos # Lymph # (Auto) [place] # (Auto) Eos # (Auto) Seg Neutrophils % Seg Neuts % (Manual) Baso # (Auto) Lymphocytes % (Manual) Monocytes % (Manual) Eosinophils % (Manual) Basophils % (Manual) Seg Neutrophils # Seg Neutrophils # Man Lymphocytes # (Manual) Monocytes # (Manual) Eosinophils # (Manual) Nucleated RBC % Basophils # (Manual) PT INR APTT Heparin Anti-Xa Level ABG pH POC ABG pO2 ABG pO2 ABG HCO3 ABG O2 Saturation ABG Base Excess POC ABG pCO2 ABG Hemoglobin ABG Oxyhemoglobin ABG Chloride ABG Glucose Oxyhemoglobin Sodium Potassium Chloride Carbon Dioxide BUN 30 H Creatinine Glucose 134 H POC Glucose 129 H 134 H Lactic Acid Calcium Phosphorus Magnesium AST ALT Lactate Dehydrogenase Total Bilirubin Direct Bilirubin CK-MB (CK-2) C-Reactive Protein NT-Pro-B Natriuret Pep Total Protein Albumin Arterial Blood Glucose Urine WBC (Auto) Urine Creatinine 01/25/20 01/25/20 01/26/20 17:13 21:02 00:59 WBC RBC Hgb Hct MCHC RDW MCV MCH Lymph % (Auto) [place] % (Auto) [place] # Eos # Lymph # (Auto) [place] # (Auto) Eos # (Auto) Seg Neutrophils % Seg Neuts % (Manual) Baso # (Auto) Lymphocytes % (Manual) Monocytes % (Manual) Eosinophils % (Manual) Basophils % (Manual) Seg Neutrophils # Seg Neutrophils # Man Lymphocytes # (Manual) Monocytes # (Manual) Eosinophils # (Manual) Nucleated RBC % Basophils # (Manual) PT INR APTT Heparin Anti-Xa Level ABG pH POC ABG pO2 ABG pO2 57.5 L ABG HCO3 31.7 H ABG O2 Saturation 90.3 L ABG Base Excess 6.6 H POC ABG pCO2 ABG Hemoglobin 13.0 L ABG Oxyhemoglobin ABG Chloride ABG Glucose Oxyhemoglobin 87.5 L Sodium Potassium Chloride Carbon Dioxide BUN Creatinine Glucose POC Glucose 124 H 196 H Lactic Acid Calcium Phosphorus Magnesium AST ALT Lactate Dehydrogenase Total Bilirubin Direct Bilirubin CK-MB (CK-2) C-Reactive Protein NT-Pro-B Natriuret Pep Total Protein Albumin Arterial Blood Glucose Urine WBC (Auto) Urine Creatinine 01/26/20 01/26/20 01/26/20 03:20 05:46 12:46 WBC RBC Hgb 9.2 L Hct 29.4 L MCHC RDW MCV MCH Lymph % (Auto) [place] % (Auto) [place] # Eos # Lymph # (Auto) [place] # (Auto) Eos # (Auto) Seg Neutrophils % Seg Neuts % (Manual) Baso # (Auto) Lymphocytes % (Manual) Monocytes % (Manual) Eosinophils % (Manual) Basophils % (Manual) Seg Neutrophils # Seg Neutrophils # Man Lymphocytes # (Manual) Monocytes # (Manual) Eosinophils # (Manual) Nucleated RBC % Basophils # (Manual) PT INR APTT Heparin Anti-Xa Level ABG pH POC ABG pO2 ABG pO2 ABG HCO3 ABG O2 Saturation ABG Base Excess POC ABG pCO2 ABG Hemoglobin ABG Oxyhemoglobin ABG Chloride ABG Glucose Oxyhemoglobin Sodium Potassium Chloride Carbon Dioxide BUN Creatinine Glucose POC Glucose 141 H 122 H Lactic Acid Calcium Phosphorus Magnesium AST ALT Lactate Dehydrogenase Total Bilirubin Direct Bilirubin CK-MB (CK-2) C-Reactive Protein NT-Pro-B Natriuret Pep Total Protein Albumin Arterial Blood Glucose Urine WBC (Auto) Urine Creatinine 01/26/20 01/26/20 01/27/20 18:03 23:55 04:47 WBC RBC Hgb Hct MCHC RDW MCV MCH Lymph % (Auto) [place] % (Auto) [place] # Eos # Lymph # (Auto) [place] # (Auto) Eos # (Auto) Seg Neutrophils % Seg Neuts % (Manual) Baso # (Auto) Lymphocytes % (Manual) Monocytes % (Manual) Eosinophils % (Manual) Basophils % (Manual) Seg Neutrophils # Seg Neutrophils # Man Lymphocytes # (Manual) Monocytes # (Manual) Eosinophils # (Manual) Nucleated RBC % Basophils # (Manual) PT INR APTT Heparin Anti-Xa Level ABG pH POC ABG pO2 ABG pO2 ABG HCO3 ABG O2 Saturation ABG Base Excess POC ABG pCO2 ABG Hemoglobin ABG Oxyhemoglobin ABG Chloride ABG Glucose Oxyhemoglobin Sodium Potassium Chloride Carbon Dioxide BUN 30 H Creatinine 0.7 L Glucose 135 H POC Glucose 142 H 159 H Lactic Acid Calcium Phosphorus Magnesium AST ALT Lactate Dehydrogenase Total Bilirubin Direct Bilirubin CK-MB (CK-2) C-Reactive Protein NT-Pro-B Natriuret Pep Total Protein Albumin Arterial Blood Glucose Urine WBC (Auto) Urine Creatinine 01/27/20 01/27/20 01/27/20 05:43 12:06 17:16 WBC RBC Hgb Hct MCHC RDW MCV MCH Lymph % (Auto) [place] % (Auto) [place] # Eos # Lymph # (Auto) [place] # (Auto) Eos # (Auto) Seg Neutrophils % Seg Neuts % (Manual) Baso # (Auto) Lymphocytes % (Manual) Monocytes % (Manual) Eosinophils % (Manual) Basophils % (Manual) Seg Neutrophils # Seg Neutrophils # Man Lymphocytes # (Manual) Monocytes # (Manual) Eosinophils # (Manual) Nucleated RBC % Basophils # (Manual) PT INR APTT Heparin Anti-Xa Level ABG pH POC ABG pO2 ABG pO2 ABG HCO3 ABG O2 Saturation ABG Base Excess POC ABG pCO2 ABG Hemoglobin ABG Oxyhemoglobin ABG Chloride ABG Glucose Oxyhemoglobin Sodium Potassium Chloride Carbon Dioxide BUN Creatinine Glucose POC Glucose 143 H 142 H 128 H Lactic Acid Calcium Phosphorus Magnesium AST ALT Lactate Dehydrogenase Total Bilirubin Direct Bilirubin CK-MB (CK-2) C-Reactive Protein NT-Pro-B Natriuret Pep Total Protein Albumin Arterial Blood Glucose Urine WBC (Auto) Urine Creatinine 01/27/20 01/28/20 01/28/20 23:55 04:37 05:55 WBC RBC Hgb 9.4 L Hct 29.9 L MCHC RDW MCV MCH Lymph % (Auto) [place] % (Auto) [place] # Eos # Lymph # (Auto) [place] # (Auto) Eos # (Auto) Seg Neutrophils % Seg Neuts % (Manual) Baso # (Auto) Lymphocytes % (Manual) Monocytes % (Manual) Eosinophils % (Manual) Basophils % (Manual) Seg Neutrophils # Seg Neutrophils # Man Lymphocytes # (Manual) Monocytes # (Manual) Eosinophils # (Manual) Nucleated RBC % Basophils # (Manual) PT INR APTT Heparin Anti-Xa Level ABG pH POC ABG pO2 ABG pO2 ABG HCO3 ABG O2 Saturation ABG Base Excess POC ABG pCO2 ABG Hemoglobin ABG Oxyhemoglobin ABG Chloride ABG Glucose Oxyhemoglobin Sodium Potassium Chloride Carbon Dioxide BUN Creatinine Glucose POC Glucose 166 H 169 H Lactic Acid Calcium Phosphorus Magnesium AST ALT Lactate Dehydrogenase Total Bilirubin Direct Bilirubin CK-MB (CK-2) C-Reactive Protein NT-Pro-B Natriuret Pep Total Protein Albumin Arterial Blood Glucose Urine WBC (Auto) Urine Creatinine 01/28/20 01/28/20 01/28/20 11:58 17:26 23:46 WBC RBC Hgb Hct MCHC RDW MCV MCH Lymph % (Auto) [place] % (Auto) [place] # Eos # Lymph # (Auto) [place] # (Auto) Eos # (Auto) Seg Neutrophils % Seg Neuts % (Manual) Baso # (Auto) Lymphocytes % (Manual) Monocytes % (Manual) Eosinophils % (Manual) Basophils % (Manual) Seg Neutrophils # Seg Neutrophils # Man Lymphocytes # (Manual) Monocytes # (Manual) Eosinophils # (Manual) Nucleated RBC % Basophils # (Manual) PT INR APTT Heparin Anti-Xa Level ABG pH POC ABG pO2 ABG pO2 ABG HCO3 ABG O2 Saturation ABG Base Excess POC ABG pCO2 ABG Hemoglobin ABG Oxyhemoglobin ABG Chloride ABG Glucose Oxyhemoglobin Sodium Potassium Chloride Carbon Dioxide BUN Creatinine Glucose POC Glucose 130 H 126 H 150 H Lactic Acid Calcium Phosphorus Magnesium AST ALT Lactate Dehydrogenase Total Bilirubin Direct Bilirubin CK-MB (CK-2) C-Reactive Protein NT-Pro-B Natriuret Pep Total Protein Albumin Arterial Blood Glucose Urine WBC (Auto) Urine Creatinine 01/29/20 01/29/20 01/29/20 04:55 06:00 12:28 WBC RBC Hgb Hct MCHC RDW MCV MCH Lymph % (Auto) [place] % (Auto) [place] # Eos # Lymph # (Auto) [place] # (Auto) Eos # (Auto) Seg Neutrophils % Seg Neuts % (Manual) Baso # (Auto) Lymphocytes % (Manual) Monocytes % (Manual) Eosinophils % (Manual) Basophils % (Manual) Seg Neutrophils # Seg Neutrophils # Man Lymphocytes # (Manual) Monocytes # (Manual) Eosinophils # (Manual) Nucleated RBC % Basophils # (Manual) PT INR APTT Heparin Anti-Xa Level ABG pH POC ABG pO2 ABG pO2 ABG HCO3 ABG O2 Saturation ABG Base Excess POC ABG pCO2 ABG Hemoglobin ABG Oxyhemoglobin ABG Chloride ABG Glucose Oxyhemoglobin Sodium Potassium Chloride Carbon Dioxide 34 H BUN Creatinine 0.6 L Glucose 152 H POC Glucose 157 H 156 H Lactic Acid Calcium Phosphorus Magnesium AST ALT Lactate Dehydrogenase Total Bilirubin Direct Bilirubin CK-MB (CK-2) C-Reactive Protein NT-Pro-B Natriuret Pep Total Protein Albumin Arterial Blood Glucose Urine WBC (Auto) Urine Creatinine 01/29/20 01/30/20 01/30/20 19:06 00:29 05:39 WBC RBC Hgb Hct MCHC RDW MCV MCH Lymph % (Auto) [place] % (Auto) [place] # Eos # Lymph # (Auto) [place] # (Auto) Eos # (Auto) Seg Neutrophils % Seg Neuts % (Manual) Baso # (Auto) Lymphocytes % (Manual) Monocytes % (Manual) Eosinophils % (Manual) Basophils % (Manual) Seg Neutrophils # Seg Neutrophils # Man Lymphocytes # (Manual) Monocytes # (Manual) Eosinophils # (Manual) Nucleated RBC % Basophils # (Manual) PT INR APTT Heparin Anti-Xa Level ABG pH POC ABG pO2 ABG pO2 ABG HCO3 ABG O2 Saturation ABG Base Excess POC ABG pCO2 ABG Hemoglobin ABG Oxyhemoglobin ABG Chloride ABG Glucose Oxyhemoglobin Sodium Potassium Chloride Carbon Dioxide BUN Creatinine Glucose POC Glucose 152 H 132 H 159 H Lactic Acid Calcium Phosphorus Magnesium AST ALT Lactate Dehydrogenase Total Bilirubin Direct Bilirubin CK-MB (CK-2) C-Reactive Protein NT-Pro-B Natriuret Pep Total Protein Albumin Arterial Blood Glucose Urine WBC (Auto) Urine Creatinine 01/30/20 01/30/20 01/30/20 12:27 17:42 23:28 WBC RBC Hgb Hct MCHC RDW MCV MCH Lymph % (Auto) [place] % (Auto) [place] # Eos # Lymph # (Auto) [place] # (Auto) Eos # (Auto) Seg Neutrophils % Seg Neuts % (Manual) Baso # (Auto) Lymphocytes % (Manual) Monocytes % (Manual) Eosinophils % (Manual) Basophils % (Manual) Seg Neutrophils # Seg Neutrophils # Man Lymphocytes # (Manual) Monocytes # (Manual) Eosinophils # (Manual) Nucleated RBC % Basophils # (Manual) PT INR APTT Heparin Anti-Xa Level ABG pH POC ABG pO2 ABG pO2 ABG HCO3 ABG O2 Saturation ABG Base Excess POC ABG pCO2 ABG Hemoglobin ABG Oxyhemoglobin ABG Chloride ABG Glucose Oxyhemoglobin Sodium Potassium Chloride Carbon Dioxide BUN Creatinine Glucose POC Glucose 151 H 144 H 164 H Lactic Acid Calcium Phosphorus Magnesium AST ALT Lactate Dehydrogenase Total Bilirubin Direct Bilirubin CK-MB (CK-2) C-Reactive Protein NT-Pro-B Natriuret Pep Total Protein Albumin Arterial Blood Glucose Urine WBC (Auto) Urine Creatinine 01/31/20 01/31/20 01/31/20 05:51 11:51 18:06 WBC RBC Hgb Hct MCHC RDW MCV MCH Lymph % (Auto) [place] % (Auto) [place] # Eos # Lymph # (Auto) [place] # (Auto) Eos # (Auto) Seg Neutrophils % Seg Neuts % (Manual) Baso # (Auto) Lymphocytes % (Manual) Monocytes % (Manual) Eosinophils % (Manual) Basophils % (Manual) Seg Neutrophils # Seg Neutrophils # Man Lymphocytes # (Manual) Monocytes # (Manual) Eosinophils # (Manual) Nucleated RBC % Basophils # (Manual) PT INR APTT Heparin Anti-Xa Level ABG pH POC ABG pO2 ABG pO2 ABG HCO3 ABG O2 Saturation ABG Base Excess POC ABG pCO2 ABG Hemoglobin ABG Oxyhemoglobin ABG Chloride ABG Glucose Oxyhemoglobin Sodium Potassium Chloride Carbon Dioxide BUN Creatinine Glucose POC Glucose 131 H 167 H 210 H Lactic Acid Calcium Phosphorus Magnesium AST ALT Lactate Dehydrogenase Total Bilirubin Direct Bilirubin CK-MB (CK-2) C-Reactive Protein NT-Pro-B Natriuret Pep Total Protein Albumin Arterial Blood Glucose Urine WBC (Auto) Urine Creatinine 01/31/20 01/31/20 02/01/20 19:24 Unknown 00:34 WBC RBC Hgb Hct MCHC RDW MCV MCH Lymph % (Auto) [place] % (Auto) [place] # Eos # Lymph # (Auto) [place] # (Auto) Eos # (Auto) Seg Neutrophils % Seg Neuts % (Manual) Baso # (Auto) Lymphocytes % (Manual) Monocytes % (Manual) Eosinophils % (Manual) Basophils % (Manual) Seg Neutrophils # Seg Neutrophils # Man Lymphocytes # (Manual) Monocytes # (Manual) Eosinophils # (Manual) Nucleated RBC % Basophils # (Manual) PT INR APTT Heparin Anti-Xa Level ABG pH POC ABG pO2 ABG pO2 ABG HCO3 ABG O2 Saturation ABG Base Excess POC ABG pCO2 ABG Hemoglobin ABG Oxyhemoglobin ABG Chloride ABG Glucose Oxyhemoglobin Sodium Potassium Chloride 95.3 L Carbon Dioxide 33 H BUN 36 H Creatinine Glucose 187 H POC Glucose 116 H Lactic Acid Calcium Phosphorus Magnesium AST ALT Lactate Dehydrogenase Total Bilirubin Direct Bilirubin CK-MB (CK-2) C-Reactive Protein NT-Pro-B Natriuret Pep Total Protein Albumin Arterial Blood Glucose Urine WBC (Auto) Urine Creatinine 57.4 H 02/01/20 02/01/20 02/01/20 05:24 10:40 12:29 WBC RBC Hgb Hct MCHC RDW MCV MCH Lymph % (Auto) [place] % (Auto) [place] # Eos # Lymph # (Auto) [place] # (Auto) Eos # (Auto) Seg Neutrophils % Seg Neuts % (Manual) Baso # (Auto) Lymphocytes % (Manual) Monocytes % (Manual) Eosinophils % (Manual) Basophils % (Manual) Seg Neutrophils # Seg Neutrophils # Man Lymphocytes # (Manual) Monocytes # (Manual) Eosinophils # (Manual) Nucleated RBC % Basophils # (Manual) PT INR APTT Heparin Anti-Xa Level ABG pH POC ABG pO2 ABG pO2 ABG HCO3 ABG O2 Saturation ABG Base Excess POC ABG pCO2 ABG Hemoglobin ABG Oxyhemoglobin ABG Chloride ABG Glucose Oxyhemoglobin Sodium Potassium Chloride Carbon Dioxide BUN Creatinine Glucose POC Glucose 142 H 165 H 151 H Lactic Acid Calcium Phosphorus Magnesium AST ALT Lactate Dehydrogenase Total Bilirubin Direct Bilirubin CK-MB (CK-2) C-Reactive Protein NT-Pro-B Natriuret Pep Total Protein Albumin Arterial Blood Glucose Urine WBC (Auto) Urine Creatinine 02/01/20 02/01/20 02/02/20 17:16 23:23 06:36 WBC RBC Hgb Hct MCHC RDW MCV MCH Lymph % (Auto) [place] % (Auto) [place] # Eos # Lymph # (Auto) [place] # (Auto) Eos # (Auto) Seg Neutrophils % Seg Neuts % (Manual) Baso # (Auto) Lymphocytes % (Manual) Monocytes % (Manual) Eosinophils % (Manual) Basophils % (Manual) Seg Neutrophils # Seg Neutrophils # Man Lymphocytes # (Manual) Monocytes # (Manual) Eosinophils # (Manual) Nucleated RBC % Basophils # (Manual) PT INR APTT Heparin Anti-Xa Level ABG pH POC ABG pO2 ABG pO2 ABG HCO3 ABG O2 Saturation ABG Base Excess POC ABG pCO2 ABG Hemoglobin ABG Oxyhemoglobin ABG Chloride ABG Glucose Oxyhemoglobin Sodium Potassium Chloride Carbon Dioxide BUN Creatinine Glucose POC Glucose 137 H 145 H 181 H Lactic Acid Calcium Phosphorus Magnesium AST ALT Lactate Dehydrogenase Total Bilirubin Direct Bilirubin CK-MB (CK-2) C-Reactive Protein NT-Pro-B Natriuret Pep Total Protein Albumin Arterial Blood Glucose Urine WBC (Auto) Urine Creatinine 02/02/20 02/02/20 02/02/20 10:01 12:05 17:54 WBC RBC Hgb Hct MCHC RDW MCV MCH Lymph % (Auto) [place] % (Auto) [place] # Eos # Lymph # (Auto) [place] # (Auto) Eos # (Auto) Seg Neutrophils % Seg Neuts % (Manual) Baso # (Auto) Lymphocytes % (Manual) Monocytes % (Manual) Eosinophils % (Manual) Basophils % (Manual) Seg Neutrophils # Seg Neutrophils # Man Lymphocytes # (Manual) Monocytes # (Manual) Eosinophils # (Manual) Nucleated RBC % Basophils # (Manual) PT INR APTT Heparin Anti-Xa Level ABG pH POC ABG pO2 ABG pO2 ABG HCO3 ABG O2 Saturation ABG Base Excess POC ABG pCO2 ABG Hemoglobin ABG Oxyhemoglobin ABG Chloride ABG Glucose Oxyhemoglobin Sodium Potassium Chloride 95.3 L Carbon Dioxide BUN 44 H Creatinine Glucose 234 H POC Glucose 184 H 127 H Lactic Acid Calcium Phosphorus Magnesium AST 363 H ALT 457 H Lactate Dehydrogenase Total Bilirubin Direct Bilirubin CK-MB (CK-2) C-Reactive Protein NT-Pro-B Natriuret Pep Total Protein Albumin 3.0 L Arterial Blood Glucose Urine WBC (Auto) Urine Creatinine 02/02/20 02/03/20 02/03/20 23:47 05:32 07:04 WBC 13.0 H RBC Hgb 9.5 L Hct 30.8 L MCHC 31 L RDW 19.6 H MCV 81 L MCH 25 L Lymph % (Auto) [place] % (Auto) 9.4 H [place] # Eos # Lymph # (Auto) [place] # (Auto) 1.2 H Eos # (Auto) Seg Neutrophils % 72.3 H Seg Neuts % (Manual) Baso # (Auto) Lymphocytes % (Manual) Monocytes % (Manual) Eosinophils % (Manual) Basophils % (Manual) Seg Neutrophils # 9.4 H Seg Neutrophils # Man Lymphocytes # (Manual) Monocytes # (Manual) Eosinophils # (Manual) Nucleated RBC % Basophils # (Manual) PT INR APTT Heparin Anti-Xa Level ABG pH POC ABG pO2 ABG pO2 ABG HCO3 ABG O2 Saturation ABG Base Excess POC ABG pCO2 ABG Hemoglobin ABG Oxyhemoglobin ABG Chloride ABG Glucose Oxyhemoglobin Sodium Potassium Chloride Carbon Dioxide BUN Creatinine Glucose POC Glucose 124 H 129 H Lactic Acid Calcium Phosphorus Magnesium AST ALT Lactate Dehydrogenase Total Bilirubin Direct Bilirubin CK-MB (CK-2) C-Reactive Protein NT-Pro-B Natriuret Pep Total Protein Albumin Arterial Blood Glucose Urine WBC (Auto) Urine Creatinine 02/03/20 02/03/20 02/03/20 07:04 11:32 12:49 WBC RBC Hgb Hct MCHC RDW MCV MCH Lymph % (Auto) [place] % (Auto) [place] # Eos # Lymph # (Auto) [place] # (Auto) Eos # (Auto) Seg Neutrophils % Seg Neuts % (Manual) Baso # (Auto) Lymphocytes % (Manual) Monocytes % (Manual) Eosinophils % (Manual) Basophils % (Manual) Seg Neutrophils # Seg Neutrophils # Man Lymphocytes # (Manual) Monocytes # (Manual) Eosinophils # (Manual) Nucleated RBC % Basophils # (Manual) PT INR APTT Heparin Anti-Xa Level ABG pH POC ABG pO2 ABG pO2 ABG HCO3 ABG O2 Saturation ABG Base Excess POC ABG pCO2 ABG Hemoglobin ABG Oxyhemoglobin ABG Chloride ABG Glucose Oxyhemoglobin Sodium Potassium Chloride 97.9 L Carbon Dioxide 33 H BUN 39 H Creatinine Glucose 119 H POC Glucose 138 H Lactic Acid Calcium Phosphorus Magnesium 2.60 H AST ALT Lactate Dehydrogenase Total Bilirubin Direct Bilirubin CK-MB (CK-2) C-Reactive Protein NT-Pro-B Natriuret Pep Total Protein Albumin Arterial Blood Glucose Urine WBC (Auto) Urine Creatinine 02/03/20 02/04/20 02/04/20 18:28 16:24 16:24 WBC RBC 3.38 L Hgb 8.6 L Hct 26.9 L MCHC RDW 19.5 H MCV 80 L MCH 26 L Lymph % (Auto) [place] % (Auto) [place] # Eos # Lymph # (Auto) [place] # (Auto) Eos # (Auto) Seg Neutrophils % Seg Neuts % (Manual) Baso # (Auto) Lymphocytes % (Manual) Monocytes % (Manual) Eosinophils % (Manual) Basophils % (Manual) Seg Neutrophils # Seg Neutrophils # Man Lymphocytes # (Manual) Monocytes # (Manual) Eosinophils # (Manual) Nucleated RBC % Basophils # (Manual) PT INR APTT Heparin Anti-Xa Level ABG pH POC ABG pO2 ABG pO2 ABG HCO3 ABG O2 Saturation ABG Base Excess POC ABG pCO2 ABG Hemoglobin ABG Oxyhemoglobin ABG Chloride ABG Glucose Oxyhemoglobin Sodium Potassium 3.4 L Chloride Carbon Dioxide 31 H BUN 37 H Creatinine Glucose 70 L POC Glucose 118 H Lactic Acid Calcium Phosphorus Magnesium AST 169 H ALT 394 H Lactate Dehydrogenase Total Bilirubin 1.50 H Direct Bilirubin CK-MB (CK-2) C-Reactive Protein NT-Pro-B Natriuret Pep Total Protein Albumin 2.9 L Arterial Blood Glucose Urine WBC (Auto) Urine Creatinine 02/05/20 02/05/20 02/05/20 00:41 06:37 17:14 WBC RBC Hgb Hct MCHC RDW MCV MCH Lymph % (Auto) [place] % (Auto) [place] # Eos # Lymph # (Auto) [place] # (Auto) Eos # (Auto) Seg Neutrophils % Seg Neuts % (Manual) Baso # (Auto) Lymphocytes % (Manual) Monocytes % (Manual) Eosinophils % (Manual) Basophils % (Manual) Seg Neutrophils # Seg Neutrophils # Man Lymphocytes # (Manual) Monocytes # (Manual) Eosinophils # (Manual) Nucleated RBC % Basophils # (Manual) PT INR APTT Heparin Anti-Xa Level ABG pH POC ABG pO2 ABG pO2 ABG HCO3 ABG O2 Saturation ABG Base Excess POC ABG pCO2 ABG Hemoglobin ABG Oxyhemoglobin ABG Chloride ABG Glucose Oxyhemoglobin Sodium Potassium 3.1 L Chloride Carbon Dioxide 35 H BUN 32 H Creatinine 0.7 L Glucose POC Glucose 69 L 127 H Lactic Acid Calcium Phosphorus Magnesium AST 134 H ALT 352 H Lactate Dehydrogenase Total Bilirubin 1.60 H Direct Bilirubin CK-MB (CK-2) C-Reactive Protein NT-Pro-B Natriuret Pep Total Protein Albumin 2.9 L Arterial Blood Glucose Urine WBC (Auto) Urine Creatinine 02/05/20 02/06/20 02/06/20 23:43 05:32 08:01 WBC RBC Hgb Hct MCHC RDW MCV MCH Lymph % (Auto) [place] % (Auto) [place] # Eos # Lymph # (Auto) [place] # (Auto) Eos # (Auto) Seg Neutrophils % Seg Neuts % (Manual) Baso # (Auto) Lymphocytes % (Manual) Monocytes % (Manual) Eosinophils % (Manual) Basophils % (Manual) Seg Neutrophils # Seg Neutrophils # Man Lymphocytes # (Manual) Monocytes # (Manual) Eosinophils # (Manual) Nucleated RBC % Basophils # (Manual) PT INR APTT Heparin Anti-Xa Level ABG pH POC ABG pO2 ABG pO2 ABG HCO3 ABG O2 Saturation ABG Base Excess POC ABG pCO2 ABG Hemoglobin ABG Oxyhemoglobin ABG Chloride ABG Glucose Oxyhemoglobin Sodium Potassium Chloride Carbon Dioxide BUN 40 H Creatinine Glucose 132 H POC Glucose 129 H 131 H Lactic Acid Calcium Phosphorus Magnesium AST ALT Lactate Dehydrogenase Total Bilirubin Direct Bilirubin CK-MB (CK-2) C-Reactive Protein NT-Pro-B Natriuret Pep Total Protein Albumin Arterial Blood Glucose Urine WBC (Auto) Urine Creatinine 02/06/20 02/06/20 02/06/20 11:51 16:28 17:32 WBC RBC Hgb Hct MCHC RDW MCV MCH Lymph % (Auto) [place] % (Auto) [place] # Eos # Lymph # (Auto) [place] # (Auto) Eos # (Auto) Seg Neutrophils % Seg Neuts % (Manual) Baso # (Auto) Lymphocytes % (Manual) Monocytes % (Manual) Eosinophils % (Manual) Basophils % (Manual) Seg Neutrophils # Seg Neutrophils # Man Lymphocytes # (Manual) Monocytes # (Manual) Eosinophils # (Manual) Nucleated RBC % Basophils # (Manual) PT INR APTT Heparin Anti-Xa Level ABG pH POC ABG pO2 ABG pO2 ABG HCO3 ABG O2 Saturation ABG Base Excess POC ABG pCO2 ABG Hemoglobin ABG Oxyhemoglobin ABG Chloride ABG Glucose Oxyhemoglobin Sodium Potassium Chloride Carbon Dioxide BUN Creatinine Glucose POC Glucose 167 H 129 H Lactic Acid Calcium Phosphorus Magnesium AST 824 H ALT 948 H Lactate Dehydrogenase Total Bilirubin 1.70 H Direct Bilirubin 1.2 H CK-MB (CK-2) C-Reactive Protein NT-Pro-B Natriuret Pep Total Protein Albumin 2.9 L Arterial Blood Glucose Urine WBC (Auto) Urine Creatinine 02/07/20 02/07/20 02/07/20 00:11 04:57 04:57 WBC RBC Hgb 9.2 L Hct 29.7 L MCHC 31 L RDW 20.2 H MCV 80 L MCH 25 L Lymph % (Auto) [place] % (Auto) [place] # Eos # Lymph # (Auto) [place] # (Auto) Eos # (Auto) Seg Neutrophils % Seg Neuts % (Manual) Baso # (Auto) Lymphocytes % (Manual) Monocytes % (Manual) Eosinophils % (Manual) Basophils % (Manual) Seg Neutrophils # Seg Neutrophils # Man Lymphocytes # (Manual) Monocytes # (Manual) Eosinophils # (Manual) Nucleated RBC % Basophils # (Manual) PT INR APTT Heparin Anti-Xa Level ABG pH POC ABG pO2 ABG pO2 ABG HCO3 ABG O2 Saturation ABG Base Excess POC ABG pCO2 ABG Hemoglobin ABG Oxyhemoglobin ABG Chloride ABG Glucose Oxyhemoglobin Sodium Potassium 3.4 L D Chloride Carbon Dioxide 32 H BUN 39 H Creatinine Glucose 106 H POC Glucose 121 H Lactic Acid Calcium Phosphorus Magnesium AST ALT Lactate Dehydrogenase Total Bilirubin Direct Bilirubin CK-MB (CK-2) C-Reactive Protein NT-Pro-B Natriuret Pep Total Protein Albumin Arterial Blood Glucose Urine WBC (Auto) Urine Creatinine 02/07/20 02/07/20 02/07/20 15:03 15:03 17:11 WBC RBC Hgb Hct MCHC RDW MCV MCH Lymph % (Auto) [place] % (Auto) [place] # Eos # Lymph # (Auto) [place] # (Auto) Eos # (Auto) Seg Neutrophils % Seg Neuts % (Manual) Baso # (Auto) Lymphocytes % (Manual) Monocytes % (Manual) Eosinophils % (Manual) Basophils % (Manual) Seg Neutrophils # Seg Neutrophils # Man Lymphocytes # (Manual) Monocytes # (Manual) Eosinophils # (Manual) Nucleated RBC % Basophils # (Manual) PT 27.0 H INR 2.46 H APTT Heparin Anti-Xa Level ABG pH POC ABG pO2 ABG pO2 ABG HCO3 ABG O2 Saturation ABG Base Excess POC ABG pCO2 ABG Hemoglobin ABG Oxyhemoglobin ABG Chloride ABG Glucose Oxyhemoglobin Sodium Potassium Chloride Carbon Dioxide BUN Creatinine Glucose POC Glucose 109 H Lactic Acid Calcium Phosphorus Magnesium AST 424 H ALT 796 H Lactate Dehydrogenase Total Bilirubin 1.60 H Direct Bilirubin 1.2 H CK-MB (CK-2) C-Reactive Protein NT-Pro-B Natriuret Pep Total Protein Albumin 2.9 L Arterial Blood Glucose Urine WBC (Auto) Urine Creatinine 02/08/20 02/08/20 02/08/20 12:14 17:44 19:00 WBC RBC Hgb Hct MCHC RDW MCV MCH Lymph % (Auto) [place] % (Auto) [place] # Eos # Lymph # (Auto) [place] # (Auto) Eos # (Auto) Seg Neutrophils % Seg Neuts % (Manual) Baso # (Auto) Lymphocytes % (Manual) Monocytes % (Manual) Eosinophils % (Manual) Basophils % (Manual) Seg Neutrophils # Seg Neutrophils # Man Lymphocytes # (Manual) Monocytes # (Manual) Eosinophils # (Manual) Nucleated RBC % Basophils # (Manual) PT INR APTT Heparin Anti-Xa Level ABG pH POC ABG pO2 ABG pO2 ABG HCO3 ABG O2 Saturation ABG Base Excess POC ABG pCO2 ABG Hemoglobin ABG Oxyhemoglobin ABG Chloride ABG Glucose Oxyhemoglobin Sodium Potassium Chloride Carbon Dioxide BUN Creatinine Glucose POC Glucose 111 H 107 H Lactic Acid Calcium Phosphorus Magnesium AST 309 H ALT 650 H Lactate Dehydrogenase Total Bilirubin 1.30 H Direct Bilirubin 0.9 H CK-MB (CK-2) C-Reactive Protein NT-Pro-B Natriuret Pep Total Protein 6.2 L Albumin 2.7 L Arterial Blood Glucose Urine WBC (Auto) Urine Creatinine 02/09/20 02/09/20 02/09/20 05:41 12:28 18:07 WBC RBC Hgb Hct MCHC RDW MCV MCH Lymph % (Auto) [place] % (Auto) [place] # Eos # Lymph # (Auto) [place] # (Auto) Eos # (Auto) Seg Neutrophils % Seg Neuts % (Manual) Baso # (Auto) Lymphocytes % (Manual) Monocytes % (Manual) Eosinophils % (Manual) Basophils % (Manual) Seg Neutrophils # Seg Neutrophils # Man Lymphocytes # (Manual) Monocytes # (Manual) Eosinophils # (Manual) Nucleated RBC % Basophils # (Manual) PT INR APTT Heparin Anti-Xa Level ABG pH POC ABG pO2 ABG pO2 ABG HCO3 ABG O2 Saturation ABG Base Excess POC ABG pCO2 ABG Hemoglobin ABG Oxyhemoglobin ABG Chloride ABG Glucose Oxyhemoglobin Sodium Potassium Chloride Carbon Dioxide BUN Creatinine Glucose POC Glucose 113 H 140 H 143 H Lactic Acid Calcium Phosphorus Magnesium AST ALT Lactate Dehydrogenase Total Bilirubin Direct Bilirubin CK-MB (CK-2) C-Reactive Protein NT-Pro-B Natriuret Pep Total Protein Albumin Arterial Blood Glucose Urine WBC (Auto) Urine Creatinine 02/09/20 02/09/20 02/10/20 21:40 23:45 06:00 WBC RBC Hgb Hct MCHC RDW MCV MCH Lymph % (Auto) [place] % (Auto) [place] # Eos # Lymph # (Auto) [place] # (Auto) Eos # (Auto) Seg Neutrophils % Seg Neuts % (Manual) Baso # (Auto) Lymphocytes % (Manual) Monocytes % (Manual) Eosinophils % (Manual) Basophils % (Manual) Seg Neutrophils # Seg Neutrophils # Man Lymphocytes # (Manual) Monocytes # (Manual) Eosinophils # (Manual) Nucleated RBC % Basophils # (Manual) PT INR APTT Heparin Anti-Xa Level ABG pH POC ABG pO2 ABG pO2 59.8 L ABG HCO3 33.3 H ABG O2 Saturation 88.9 L ABG Base Excess 7.4 H POC ABG pCO2 ABG Hemoglobin 10.4 L ABG Oxyhemoglobin ABG Chloride ABG Glucose Oxyhemoglobin 86.3 L Sodium Potassium Chloride Carbon Dioxide BUN Creatinine Glucose POC Glucose 127 H 114 H Lactic Acid Calcium Phosphorus Magnesium AST ALT Lactate Dehydrogenase Total Bilirubin Direct Bilirubin CK-MB (CK-2) C-Reactive Protein NT-Pro-B Natriuret Pep Total Protein Albumin Arterial Blood Glucose Urine WBC (Auto) Urine Creatinine 02/10/20 02/10/20 02/10/20 07:40 07:40 13:38 WBC 11.5 H RBC Hgb 10.6 L Hct 34.7 L MCHC 31 L RDW 19.8 H MCV 79 L MCH 24 L Lymph % (Auto) [place] % (Auto) 9.2 H [place] # Eos # Lymph # (Auto) [place] # (Auto) 1.1 H Eos # (Auto) Seg Neutrophils % Seg Neuts % (Manual) Baso # (Auto) Lymphocytes % (Manual) Monocytes % (Manual) Eosinophils % (Manual) Basophils % (Manual) Seg Neutrophils # Seg Neutrophils # Man Lymphocytes # (Manual) Monocytes # (Manual) Eosinophils # (Manual) Nucleated RBC % Basophils # (Manual) PT INR APTT Heparin Anti-Xa Level ABG pH POC ABG pO2 ABG pO2 ABG HCO3 ABG O2 Saturation ABG Base Excess POC ABG pCO2 ABG Hemoglobin ABG Oxyhemoglobin ABG Chloride ABG Glucose Oxyhemoglobin Sodium 151 H Potassium Chloride 107.2 H Carbon Dioxide 36 H BUN 25 H Creatinine 0.7 L Glucose 114 H POC Glucose 116 H Lactic Acid Calcium Phosphorus Magnesium 2.40 H AST ALT Lactate Dehydrogenase Total Bilirubin Direct Bilirubin CK-MB (CK-2) C-Reactive Protein NT-Pro-B Natriuret Pep Total Protein Albumin Arterial Blood Glucose Urine WBC (Auto) Urine Creatinine 02/10/20 02/11/20 02/11/20 17:44 05:47 12:21 WBC RBC Hgb Hct MCHC RDW MCV MCH Lymph % (Auto) [place] % (Auto) [place] # Eos # Lymph # (Auto) [place] # (Auto) Eos # (Auto) Seg Neutrophils % Seg Neuts % (Manual) Baso # (Auto) Lymphocytes % (Manual) Monocytes % (Manual) Eosinophils % (Manual) Basophils % (Manual) Seg Neutrophils # Seg Neutrophils # Man Lymphocytes # (Manual) Monocytes # (Manual) Eosinophils # (Manual) Nucleated RBC % Basophils # (Manual) PT INR APTT Heparin Anti-Xa Level ABG pH POC ABG pO2 ABG pO2 ABG HCO3 ABG O2 Saturation ABG Base Excess POC ABG pCO2 ABG Hemoglobin ABG Oxyhemoglobin ABG Chloride ABG Glucose Oxyhemoglobin Sodium Potassium Chloride Carbon Dioxide BUN Creatinine Glucose POC Glucose 139 H 173 H 143 H Lactic Acid Calcium Phosphorus Magnesium AST ALT Lactate Dehydrogenase Total Bilirubin Direct Bilirubin CK-MB (CK-2) C-Reactive Protein NT-Pro-B Natriuret Pep Total Protein Albumin Arterial Blood Glucose Urine WBC (Auto) Urine Creatinine 02/11/20 02/11/20 02/12/20 13:43 14:11 00:15 WBC RBC Hgb Hct MCHC RDW MCV MCH Lymph % (Auto) [place] % (Auto) [place] # Eos # Lymph # (Auto) [place] # (Auto) Eos # (Auto) Seg Neutrophils % Seg Neuts % (Manual) Baso # (Auto) Lymphocytes % (Manual) Monocytes % (Manual) Eosinophils % (Manual) Basophils % (Manual) Seg Neutrophils # Seg Neutrophils # Man Lymphocytes # (Manual) Monocytes # (Manual) Eosinophils # (Manual) Nucleated RBC % Basophils # (Manual) PT INR APTT Heparin Anti-Xa Level ABG pH 7.502 H POC ABG pO2 77.7 L ABG pO2 ABG HCO3 ABG O2 Saturation ABG Base Excess POC ABG pCO2 ABG Hemoglobin 11.1 L ABG Oxyhemoglobin ABG Chloride 108.0 H ABG Glucose 151 H Oxyhemoglobin Sodium Potassium Chloride Carbon Dioxide BUN Creatinine Glucose POC Glucose 130 H 125 H Lactic Acid Calcium Phosphorus Magnesium AST ALT Lactate Dehydrogenase Total Bilirubin Direct Bilirubin CK-MB (CK-2) C-Reactive Protein NT-Pro-B Natriuret Pep Total Protein Albumin Arterial Blood Glucose 151 H Urine WBC (Auto) Urine Creatinine 02/12/20 02/12/20 02/12/20 04:56 04:56 17:42 WBC RBC Hgb 9.9 L Hct 31.8 L MCHC 31 L RDW 19.4 H MCV 79 L MCH 25 L Lymph % (Auto) [place] % (Auto) 10.3 H [place] # Eos # Lymph # (Auto) [place] # (Auto) 1.0 H Eos # (Auto) Seg Neutrophils % Seg Neuts % (Manual) Baso # (Auto) Lymphocytes % (Manual) Monocytes % (Manual) Eosinophils % (Manual) Basophils % (Manual) Seg Neutrophils # Seg Neutrophils # Man Lymphocytes # (Manual) Monocytes # (Manual) Eosinophils # (Manual) Nucleated RBC % Basophils # (Manual) PT INR APTT Heparin Anti-Xa Level ABG pH POC ABG pO2 ABG pO2 ABG HCO3 ABG O2 Saturation ABG Base Excess POC ABG pCO2 ABG Hemoglobin ABG Oxyhemoglobin ABG Chloride ABG Glucose Oxyhemoglobin Sodium 149 H Potassium Chloride 108.6 H Carbon Dioxide BUN 28 H Creatinine 0.7 L Glucose 108 H POC Glucose 113 H Lactic Acid Calcium Phosphorus Magnesium AST ALT Lactate Dehydrogenase Total Bilirubin Direct Bilirubin CK-MB (CK-2) C-Reactive Protein NT-Pro-B Natriuret Pep Total Protein Albumin Arterial Blood Glucose Urine WBC (Auto) Urine Creatinine 02/13/20 02/13/20 02/13/20 00:39 05:36 12:25 WBC RBC Hgb Hct MCHC RDW MCV MCH Lymph % (Auto) [place] % (Auto) [place] # Eos # Lymph # (Auto) [place] # (Auto) Eos # (Auto) Seg Neutrophils % Seg Neuts % (Manual) Baso # (Auto) Lymphocytes % (Manual) Monocytes % (Manual) Eosinophils % (Manual) Basophils % (Manual) Seg Neutrophils # Seg Neutrophils # Man Lymphocytes # (Manual) Monocytes # (Manual) Eosinophils # (Manual) Nucleated RBC % Basophils # (Manual) PT INR APTT Heparin Anti-Xa Level ABG pH POC ABG pO2 ABG pO2 ABG HCO3 ABG O2 Saturation ABG Base Excess POC ABG pCO2 ABG Hemoglobin ABG Oxyhemoglobin ABG Chloride ABG Glucose Oxyhemoglobin Sodium Potassium Chloride Carbon Dioxide BUN Creatinine Glucose POC Glucose 129 H 126 H 129 H Lactic Acid Calcium Phosphorus Magnesium AST ALT Lactate Dehydrogenase Total Bilirubin Direct Bilirubin CK-MB (CK-2) C-Reactive Protein NT-Pro-B Natriuret Pep Total Protein Albumin Arterial Blood Glucose Urine WBC (Auto) Urine Creatinine Chest x-ray: image reviewed Allied health notes reviewed: RT
[2020-02-13] MEDS: DIGOXIN 0.5 MG/2 ML INJ IV SCH (18:32)
[2020-02-13] MEDS: MORPHINE 2 MG/1 ML INJ IV PRN (20:45)
[2020-02-13] MEDS: POLYETHYLENE GLYCOL 3350 17 GM POWDER PO SCH (22:12)
[2020-02-13] MEDS: TAMSULOSIN 0.4 MG CAP PO SCH (22:14)
[2020-02-14] MEDS: INSULIN REGULAR, HUMAN 100 UNIT/ML 3ML VIAL SUB-Q SCH ×4 (02:12→18:10)
[2020-02-14] MEDS: METOPROLOL TARTRATE 50 MG TAB PO SCH ×4 (02:52→17:00)
[2020-02-14] MEDS: METOCLOPRAMIDE 10 MG/2 ML INJ IV SCH ×4 (02:52→17:00)
[2020-02-14] MEDS: ONDANSETRON 4 MG/2 ML INJ IV PRN (07:32)
[2020-02-14] MEDS: MIDODRINE 5 MG TAB PO SCH ×3 (07:33→17:00)
[2020-02-14] MEDS: MORPHINE 2 MG/1 ML INJ IV PRN ×2 (08:38→18:09)
[2020-02-14] MEDS: GLYCOPYRROLATE 2 MG TAB PO SCH ×3 (08:41→20:05)
[2020-02-14] MEDS: QUEtiapine 100 MG TAB PO SCH ×2 (09:02→21:08)
[2020-02-14] MEDS: CLOPIDOGREL 75 MG TAB PO SCH (09:03)
[2020-02-14] MEDS: APIXABAN 5 MG TAB PO SCH ×2 (09:03→21:10)
[2020-02-14] MEDS: LANSOPRAZOLE 30 MG SOLUTAB FEEDTUBE SCH (09:04)
--- NOTE | 2020-02-14 09:46 | Progress Note ---
Assessment and Plan - Patient Problems (1) Paroxysmal atrial fibrillation Current Visit: Yes Status: Acute Plan to address problem: Continue conservative cardiac medical management as previously outlined. Subjective Date of service: 02/14/20 Principal diagnosis: Ac hypoxemic resp failure; Pneumonia; PUI COVID-19; CHF; COPD; HTN Interval history: Patient is lethargic, breathing via trach, remains in atrial fibrillation with well-controlled ventricular rate. Objective Vital Signs Temp Pulse Pulse Resp BP Pulse Ox Pulse Ox 02/14/20 08:00 98.6 F 02/14/20 07:43 93 H 31 H 106/78 99 02/14/20 07:15 122 H 25 H 106/79 100 02/14/20 07:14 100 02/14/20 07:07 90 106/79 99 02/14/20 07:00 109 H 27 H 106/79 98 02/14/20 06:31 105 H 24 109/76 94 02/14/20 06:30 104 H 114/75 02/14/20 06:00 100 H 27 H 114/75 96 02/14/20 05:31 108 H 28 H 95/80 96 02/14/20 05:00 106 H 21 98/78 94 02/14/20 04:30 106 H 25 H 98/79 97 02/14/20 04:02 98 02/14/20 04:00 99 H 91 H 19 108/77 95 02/14/20 03:58 97.9 F 02/14/20 03:57 111 H 108/77 98 02/14/20 03:30 98 H 29 H 101/69 95 02/14/20 03:00 104 H 28 H 106/58 95 02/14/20 02:52 116 H 116/88 02/14/20 02:30 115 H 31 H 116/88 97 02/14/20 02:00 112 H 19 112/80 95 02/14/20 01:30 102 H 30 H 102/79 97 02/14/20 01:00 117 H 26 H 104/82 97 02/14/20 00:30 111 H 29 H 98/77 97 02/14/20 00:12 101 H 95/76 99 02/14/20 00:00 109 H 100 H 26 H 95/76 97 02/13/20 23:36 98.2 F 11/21/20 23:30 98 H 26 H 90/71 95 02/13/20 23:00 86 11 L 95/62 02/13/20 22:30 88 25 H 100/66 96 02/13/20 22:00 121 H 22 100/81 97 02/13/20 21:30 114 H 24 121/80 96 02/13/20 21:00 115 H 28 H 125/84 99 02/13/20 20:37 121 H 144/115 100 02/13/20 20:31 131 H 34 H 101/81 99 02/13/20 20:00 97.3 F L 110 H 121 H 25 H 105/87 97 02/13/20 19:43 121 H 36 H 101/81 99 02/13/20 19:30 103 H 29 H 101/81 98 02/13/20 19:00 108 H 23 98/77 99 02/13/20 18:32 122 H 102/73 02/13/20 18:30 103 H 28 H 102/73 97 02/13/20 18:00 117 H 27 H 96/72 96 02/13/20 17:30 117 H 31 H 111/78 02/13/20 17:01 118 H 23 110/95 98 02/13/20 16:38 100 02/13/20 16:36 97 H 93/72 100 02/13/20 16:31 100 H 19 93/72 98 02/13/20 16:01 104 H 20 104/72 93 02/13/20 16:00 98.2 F 104 H 104 H 20 98 02/13/20 15:31 110 H 25 H 110/85 94 02/13/20 15:01 127 H 26 H 106/85 98 02/13/20 14:30 118 H 13 109/81 99 02/13/20 14:00 105 H 31 H 106/77 96 02/13/20 13:30 99 H 31 H 107/83 96 02/13/20 13:00 115 H 29 H 112/86 94 02/13/20 12:30 113 H 30 H 104/78 97 02/13/20 12:00 98.7 F 107 H 107 H 25 H 97/71 100 02/13/20 11:54 102 H 24 97/71 95 02/13/20 11:30 101 H 22 97/71 94 11/21/20 11:02 101 H 111/72 11/21/20 11:00 103 H 19 111/72 97 02/13/20 10:31 128 H 25 H 85/67 96 02/13/20 10:00 96 H 24 85 96 - Physical Examination General: Cachectic, Other (s/p trach) HEENT: Positive: PERRL Neck: Positive: neck supple Cardiac: Positive: irregularly irregular Lungs: Positive: Decreased Breath Sounds Neuro: Positive: Weakness Abdomen: Positive: Soft Skin: Positive: Clear Extremities: Absent: edema - Allied health notes Allied health notes reviewed: nursing
--- NOTE | 2020-02-14 13:32 | Progress Note ---
Assessment and Plan Acute hypoxemic respiratory failure Bilateral pneumonia, community acquired. Acute LLL branch P.E. Acute DVT Person under investigation for COVID-19 infection. Acute congestive heart failure exacerbation. History of cerebrovascular accident. Acute chronic obstructive pulmonary disease exacerbation. Hypertension and hypertensive urgency at presentation. History of arthritis. Leukocytosis. Lactic acidosis. Oropharyngeal dysphagia - continue Robinul & Scopolamine for secretion control - continue daily SAT's and SBT assessment as tolerated -May need Psych input too better titrate and mange agitation/anxiety-placed Psych consult -CXR, ABG as clinically indicated -PT/OT to treat, mobility- placed PT/OT consult -Conservative fluid management, intermittent diuresis while monitoring renal function and hemodynamics - Discharge planning - continue rate control per cardiology team - continue prn haldol for agitation to avoid hypoventilation - continue Flomax - Midodrine for blood pressure - prn mucomyst nebs re: secretions - continue full anticoagulation with Apixaban - continue seroquel for anxiolysis / delirium - continue to wean oxygen for O2 sats > 92% - continue bronchodilators with routine trach care and pulmonary hygiene per RT - continue Robinul & Scopolamine for secretion control - VAP bundle addressed (Aspiration precautions, HOB >40) - continue to wean per pulmonary driven protocols - continue prn analgesia per CPOT score - follow clinically re: fever curves / trend WBC - Avoid delirium (no benzodiazepines if they can be avoided) - Maintain sleep-wake cycle - enteral nutrition at goal rate as tolerated - continue accuchecks with glycemic control per SSI for target blood glucose goal of 140-180 mg/dL while critically ill; Avoid hypoglycemia - for VTE he is on IV Heparin - continue stress ulcer prophylaxis with Famotidine - continue mobility protocols for pressure ulcer prophylaxis - continue fall precautions - continue wound care management per RN / WCT - Supportive transfusions to keep HgB>7g/dL - Continue to monitor neurologic function - Continue all supportive care ........ re-evaluate in am & prn CONDITION: CRITICAL PROGNOSIS: GUARDED CODE STATUS: FULL CODE The high probability of a clinically significant, sudden or life threatening deterioration of the [Respiratory, cardiovascular & neurological] system(s) required my full and direct attention, intervention and personal management. The aggregate critical care time was [32] minutes without overlap. Time includes spent on [x] Data Review and interpretation [x] Patient assessment and monitoring of vital signs [x] Documentation [x] Medication orders and management Subjective Date of service: 02/14/20 Principal diagnosis: Ac hypoxemic resp failure; Pneumonia; PUI COVID-19; CHF; COPD; HTN Interval history: Patient is seen today for: Acute hypoxemic respiratory failure; Adan. Pneumonia (CAP); PUI COVID-19 infection; AE-CHF; AE-COPD; H/O CVA; HTN; PE, DVT Seen and examined at bedside; 24 hour events reviewed; nursing and respiratory care staff consulted; no adverse overnight events reported to me; resting peacefully in bed; s/p trach on full support, awake and alert ,tolerating tube feedings. Vent AC-VC 450/+6/30% Size#6 Shiley, did not tolerate ATP trials this morning- aggressive behaviour per RT. Mouths words to make needs known, is interactive Objective Vital Signs - 12hr 02/14/20 02/14/20 02/14/20 02:00 02:30 02:52 Temperature Pulse Rate 112 H 115 H 116 H Pulse Rate [ From Monitor] Respiratory 19 31 H Rate Blood Pressure 112/80 116/88 116/88 O2 Sat by Pulse 95 97 Oximetry O2 Sat by Pulse Oximetry [ Assessment] 02/14/20 02/14/20 02/14/20 03:00 03:30 03:57 Temperature Pulse Rate 104 H 98 H 111 H Pulse Rate [ From Monitor] Respiratory 28 H 29 H Rate Blood Pressure 106/58 101/69 108/77 O2 Sat by Pulse 95 95 98 Oximetry O2 Sat by Pulse Oximetry [ Assessment] 02/14/20 02/14/20 02/14/20 03:58 04:00 04:02 Temperature 97.9 F Pulse Rate 99 H Pulse Rate [ 91 H From Monitor] Respiratory 19 Rate Blood Pressure 108/77 O2 Sat by Pulse 95 Oximetry O2 Sat by Pulse 98 Oximetry [ Assessment] 02/14/20 02/14/20 02/14/20 04:30 05:00 05:31 Temperature Pulse Rate 106 H 106 H 108 H Pulse Rate [ From Monitor] Respiratory 25 H 21 28 H Rate Blood Pressure 98/79 98/78 95/80 O2 Sat by Pulse 97 94 96 Oximetry O2 Sat by Pulse Oximetry [ Assessment] 02/14/20 02/14/20 02/14/20 06:00 06:30 06:31 Temperature Pulse Rate 100 H 104 H 105 H Pulse Rate [ From Monitor] Respiratory 27 H 24 Rate Blood Pressure 114/75 114/75 109/76 O2 Sat by Pulse 96 94 Oximetry O2 Sat by Pulse Oximetry [ Assessment] 02/14/20 02/14/20 02/14/20 07:00 07:07 07:14 Temperature Pulse Rate 109 H 90 Pulse Rate [ From Monitor] Respiratory 27 H Rate Blood Pressure 106/79 106/79 O2 Sat by Pulse 98 99 100 Oximetry O2 Sat by Pulse Oximetry [ Assessment] 02/14/20 02/14/20 02/14/20 07:15 07:30 07:43 Temperature Pulse Rate 122 H 100 H 93 H Pulse Rate [ From Monitor] Respiratory 25 H 37 H Rate Blood Pressure 106/79 106/78 106/78 O2 Sat by Pulse 100 91 99 Oximetry O2 Sat by Pulse Oximetry [ Assessment] 02/14/20 02/14/20 02/14/20 08:00 08:01 08:31 Temperature 98.6 F Pulse Rate 110 H 112 H 102 H Pulse Rate [ 112 H From Monitor] Respiratory 33 H 33 H 35 H Rate Blood Pressure 94/47 94/47 O2 Sat by Pulse 98 98 Oximetry O2 Sat by Pulse Oximetry [ Assessment] 02/14/20 02/14/20 02/14/20 09:01 09:31 10:00 Temperature Pulse Rate 107 H 115 H 112 H Pulse Rate [ From Monitor] Respiratory 25 H 35 H 29 H Rate Blood Pressure 230/171 120/72 128/75 O2 Sat by Pulse 99 96 96 Oximetry O2 Sat by Pulse Oximetry [ Assessment] 02/14/20 02/14/20 02/14/20 10:30 11:00 11:22 Temperature Pulse Rate 113 H 117 H 100 H Pulse Rate [ From Monitor] Respiratory 31 H 29 H Rate Blood Pressure 122/83 118/76 118/76 O2 Sat by Pulse 96 93 97 Oximetry O2 Sat by Pulse Oximetry [ Assessment] 02/14/20 02/14/20 11:31 12:00 Temperature 98.8 F Pulse Rate 94 H 94 H Pulse Rate [ 94 H From Monitor] Respiratory 26 H 24 Rate Blood Pressure 100/70 98/75 O2 Sat by Pulse 91 95 Oximetry O2 Sat by Pulse Oximetry [ Assessment] Constitutional: appears uncomfortable, other (elelelderly and obese male, normocephalic with mildly increased respiratory effort at rest) Eyes: non-icteric ENT: oropharynx moist, other (+ midline tracheostomy) Neck: supple, no JVD Effort: mildly labored Ascultation: Bilateral: clear, diminished breath sounds, rhonchi (and referred upper airway sounds), other (tracheal secretions ) Percussion: Bilateral: not dull Cardiovascular: irregular rhythm, other (flow murmur) Gastrointestinal: normoactive bowel sounds, soft, non-tender, non-distended (protuberant), other (protuberant; PEG in place) Integumentary: normal Extremities: no cyanosis, pulses normal, no ischemia or petechiae, edema ( bilateral upper ) Neurologic: non-focal exam (moves extremities), pupils equal and round, CN II- XII normal, unable to assess Psychiatric: other (unable to assess re: AMS) CBC and BMP: 02/15/20 06:59 02/15/20 06:59 ABG, PT/INR, D-dimer: ABG ABG pH 7.502 (7.320-7.450) H 02/11/20 14:11 POC ABG pCO2 34.8 mmHg (32.0-48.0) 02/11/20 14:11 ABG pCO2 54.1 mm Hg 02/09/20 21:40 POC ABG pO2 77.7 mmHg (83-108) L 02/11/20 14:11 ABG pO2 59.8 mm Hg (80.0-90.0) L 02/09/20 21:40 POC ABG HCO3 26.7 02/11/20 14:11 ABG O2 Saturation 88.9 % (95.0-99.0) L 02/09/20 21:40 PT/INR, D-dimer PT 27.0 Sec. (12.2-14.9) H 02/07/20 15:03 INR 2.46 (0.87-1.13) H 02/07/20 15:03 Abnormal lab findings: Abnormal Labs 11/24/19 11/24/19 11/24/19 02:53 02:53 03:45 WBC 14.3 H RBC Hgb Hct MCHC RDW 17.2 H MCV MCH Lymph % (Auto) [place] % (Auto) [place] # Eos # Lymph # (Auto) [place] # (Auto) Eos # (Auto) Seg Neutrophils % Seg Neuts % (Manual) Baso # (Auto) Lymphocytes % (Manual) Monocytes % (Manual) Eosinophils % (Manual) Basophils % (Manual) Seg Neutrophils # Seg Neutrophils # Man 8.3 H Lymphocytes # (Manual) Monocytes # (Manual) 0.9 H Eosinophils # (Manual) Nucleated RBC % Basophils # (Manual) PT INR APTT Heparin Anti-Xa Level ABG pH 7.313 L POC ABG pO2 ABG pO2 102.8 H ABG HCO3 ABG O2 Saturation ABG Base Excess -2.9 L POC ABG pCO2 ABG Hemoglobin ABG Oxyhemoglobin ABG Chloride ABG Glucose Oxyhemoglobin 93.9 L Sodium Potassium Chloride Carbon Dioxide BUN Creatinine Glucose 195 H POC Glucose Lactic Acid Calcium Phosphorus Magnesium AST ALT Lactate Dehydrogenase Total Bilirubin Direct Bilirubin CK-MB (CK-2) 4.3 H C-Reactive Protein NT-Pro-B Natriuret Pep 1181 H Total Protein Albumin Arterial Blood Glucose Urine WBC (Auto) Urine Creatinine 11/24/19 11/24/19 11/24/19 04:53 04:53 10:37 WBC RBC Hgb Hct MCHC RDW MCV MCH Lymph % (Auto) [place] % (Auto) [place] # Eos # Lymph # (Auto) [place] # (Auto) Eos # (Auto) Seg Neutrophils % Seg Neuts % (Manual) Baso # (Auto) Lymphocytes % (Manual) Monocytes % (Manual) Eosinophils % (Manual) Basophils % (Manual) Seg Neutrophils # Seg Neutrophils # Man Lymphocytes # (Manual) Monocytes # (Manual) Eosinophils # (Manual) Nucleated RBC % Basophils # (Manual) PT INR APTT Heparin Anti-Xa Level ABG pH POC ABG pO2 ABG pO2 ABG HCO3 ABG O2 Saturation ABG Base Excess POC ABG pCO2 ABG Hemoglobin ABG Oxyhemoglobin ABG Chloride ABG Glucose Oxyhemoglobin Sodium Potassium Chloride Carbon Dioxide BUN Creatinine Glucose 162 H POC Glucose Lactic Acid 2.40 H* 2.50 H* Calcium Phosphorus Magnesium AST ALT Lactate Dehydrogenase 240 H Total Bilirubin Direct Bilirubin CK-MB (CK-2) C-Reactive Protein NT-Pro-B Natriuret Pep Total Protein Albumin Arterial Blood Glucose Urine WBC (Auto) Urine Creatinine 11/24/19 11/24/19 11/24/19 12:21 14:50 19:54 WBC RBC Hgb Hct MCHC RDW MCV MCH Lymph % (Auto) [place] % (Auto) [place] # Eos # Lymph # (Auto) [place] # (Auto) Eos # (Auto) Seg Neutrophils % Seg Neuts % (Manual) Baso # (Auto) Lymphocytes % (Manual) Monocytes % (Manual) Eosinophils % (Manual) Basophils % (Manual) Seg Neutrophils # Seg Neutrophils # Man Lymphocytes # (Manual) Monocytes # (Manual) Eosinophils # (Manual) Nucleated RBC % Basophils # (Manual) PT INR APTT Heparin Anti-Xa Level ABG pH POC ABG pO2 ABG pO2 ABG HCO3 ABG O2 Saturation ABG Base Excess POC ABG pCO2 ABG Hemoglobin ABG Oxyhemoglobin ABG Chloride ABG Glucose Oxyhemoglobin Sodium Potassium Chloride Carbon Dioxide BUN Creatinine Glucose POC Glucose 145 H 143 H 124 H Lactic Acid Calcium Phosphorus Magnesium AST ALT Lactate Dehydrogenase Total Bilirubin Direct Bilirubin CK-MB (CK-2) C-Reactive Protein NT-Pro-B Natriuret Pep Total Protein Albumin Arterial Blood Glucose Urine WBC (Auto) Urine Creatinine 11/25/19 11/25/19 11/25/19 00:18 03:18 05:11 WBC 13.7 H RBC Hgb Hct MCHC RDW 17.1 H MCV MCH Lymph % (Auto) 10.8 L [place] % (Auto) 8.7 H [place] # 1.2 H Eos # Lymph # (Auto) [place] # (Auto) Eos # (Auto) Seg Neutrophils % 80.2 H Seg Neuts % (Manual) Baso # (Auto) Lymphocytes % (Manual) Monocytes % (Manual) Eosinophils % (Manual) Basophils % (Manual) Seg Neutrophils # 11.0 H Seg Neutrophils # Man Lymphocytes # (Manual) Monocytes # (Manual) Eosinophils # (Manual) Nucleated RBC % Basophils # (Manual) PT INR APTT Heparin Anti-Xa Level ABG pH 7.333 L POC ABG pO2 ABG pO2 61.2 L ABG HCO3 ABG O2 Saturation 90.2 L ABG Base Excess POC ABG pCO2 ABG Hemoglobin 13.7 L ABG Oxyhemoglobin ABG Chloride ABG Glucose Oxyhemoglobin 88.2 L Sodium Potassium Chloride Carbon Dioxide BUN Creatinine Glucose POC Glucose 109 H Lactic Acid Calcium Phosphorus Magnesium AST ALT Lactate Dehydrogenase Total Bilirubin Direct Bilirubin CK-MB (CK-2) C-Reactive Protein NT-Pro-B Natriuret Pep Total Protein Albumin Arterial Blood Glucose Urine WBC (Auto) Urine Creatinine 11/25/19 11/25/19 11/26/19 05:11 11:40 03:12 WBC RBC Hgb Hct MCHC RDW MCV MCH Lymph % (Auto) [place] % (Auto) [place] # Eos # Lymph # (Auto) [place] # (Auto) Eos # (Auto) Seg Neutrophils % Seg Neuts % (Manual) Baso # (Auto) Lymphocytes % (Manual) Monocytes % (Manual) Eosinophils % (Manual) Basophils % (Manual) Seg Neutrophils # Seg Neutrophils # Man Lymphocytes # (Manual) Monocytes # (Manual) Eosinophils # (Manual) Nucleated RBC % Basophils # (Manual) PT INR APTT Heparin Anti-Xa Level ABG pH POC ABG pO2 ABG pO2 155.1 H ABG HCO3 27.8 H ABG O2 Saturation ABG Base Excess POC ABG pCO2 ABG Hemoglobin 12.2 L ABG Oxyhemoglobin ABG Chloride ABG Glucose Oxyhemoglobin Sodium Potassium Chloride Carbon Dioxide BUN 23 H Creatinine Glucose 110 H POC Glucose 108 H Lactic Acid Calcium Phosphorus Magnesium AST ALT Lactate Dehydrogenase Total Bilirubin Direct Bilirubin CK-MB (CK-2) C-Reactive Protein NT-Pro-B Natriuret Pep Total Protein Albumin Arterial Blood Glucose Urine WBC (Auto) Urine Creatinine 11/26/19 11/26/19 11/26/19 06:17 10:43 10:43 WBC 11.4 H RBC Hgb Hct MCHC RDW 17.1 H MCV MCH Lymph % (Auto) [place] % (Auto) [place] # Eos # Lymph # (Auto) [place] # (Auto) Eos # (Auto) Seg Neutrophils % Seg Neuts % (Manual) Baso # (Auto) Lymphocytes % (Manual) Monocytes % (Manual) Eosinophils % (Manual) Basophils % (Manual) Seg Neutrophils # Seg Neutrophils # Man Lymphocytes # (Manual) Monocytes # (Manual) Eosinophils # (Manual) Nucleated RBC % Basophils # (Manual) PT INR APTT Heparin Anti-Xa Level ABG pH POC ABG pO2 ABG pO2 ABG HCO3 ABG O2 Saturation ABG Base Excess POC ABG pCO2 ABG Hemoglobin ABG Oxyhemoglobin ABG Chloride ABG Glucose Oxyhemoglobin Sodium Potassium Chloride Carbon Dioxide BUN 29 H Creatinine Glucose POC Glucose 107 H Lactic Acid Calcium Phosphorus Magnesium AST ALT Lactate Dehydrogenase Total Bilirubin Direct Bilirubin CK-MB (CK-2) C-Reactive Protein NT-Pro-B Natriuret Pep Total Protein Albumin Arterial Blood Glucose Urine WBC (Auto) Urine Creatinine 11/26/19 11/27/19 11/27/19 17:11 01:53 04:11 WBC RBC Hgb Hct MCHC RDW MCV MCH Lymph % (Auto) [place] % (Auto) [place] # Eos # Lymph # (Auto) [place] # (Auto) Eos # (Auto) Seg Neutrophils % Seg Neuts % (Manual) Baso # (Auto) Lymphocytes % (Manual) Monocytes % (Manual) Eosinophils % (Manual) Basophils % (Manual) Seg Neutrophils # Seg Neutrophils # Man Lymphocytes # (Manual) Monocytes # (Manual) Eosinophils # (Manual) Nucleated RBC % Basophils # (Manual) PT INR APTT Heparin Anti-Xa Level ABG pH POC ABG pO2 ABG pO2 ABG HCO3 29.2 H ABG O2 Saturation ABG Base Excess 3.4 H POC ABG pCO2 ABG Hemoglobin 13.3 L ABG Oxyhemoglobin ABG Chloride ABG Glucose Oxyhemoglobin 94.5 L Sodium Potassium Chloride Carbon Dioxide BUN Creatinine Glucose POC Glucose 113 H 108 H Lactic Acid Calcium Phosphorus Magnesium AST ALT Lactate Dehydrogenase Total Bilirubin Direct Bilirubin CK-MB (CK-2) C-Reactive Protein NT-Pro-B Natriuret Pep Total Protein Albumin Arterial Blood Glucose Urine WBC (Auto) Urine Creatinine 11/27/19 11/28/19 11/28/19 05:27 05:00 05:25 WBC RBC Hgb Hct MCHC RDW MCV MCH Lymph % (Auto) [place] % (Auto) [place] # Eos # Lymph # (Auto) [place] # (Auto) Eos # (Auto) Seg Neutrophils % Seg Neuts % (Manual) Baso # (Auto) Lymphocytes % (Manual) Monocytes % (Manual) Eosinophils % (Manual) Basophils % (Manual) Seg Neutrophils # Seg Neutrophils # Man Lymphocytes # (Manual) Monocytes # (Manual) Eosinophils # (Manual) Nucleated RBC % Basophils # (Manual) PT INR APTT Heparin Anti-Xa Level ABG pH POC ABG pO2 68.1 L ABG pO2 ABG HCO3 ABG O2 Saturation ABG Base Excess POC ABG pCO2 ABG Hemoglobin ABG Oxyhemoglobin 91.2 L ABG Chloride ABG Glucose Oxyhemoglobin Sodium Potassium Chloride Carbon Dioxide BUN Creatinine Glucose POC Glucose 111 H 110 H Lactic Acid Calcium Phosphorus Magnesium AST ALT Lactate Dehydrogenase Total Bilirubin Direct Bilirubin CK-MB (CK-2) C-Reactive Protein NT-Pro-B Natriuret Pep Total Protein Albumin Arterial Blood Glucose Urine WBC (Auto) Urine Creatinine 11/28/19 11/28/19 11/28/19 12:08 13:47 13:47 WBC 11.3 H RBC Hgb Hct MCHC RDW 16.1 H MCV MCH Lymph % (Auto) [place] % (Auto) 9.9 H [place] # 1.1 H Eos # Lymph # (Auto) [place] # (Auto) Eos # (Auto) Seg Neutrophils % 71.4 H Seg Neuts % (Manual) Baso # (Auto) Lymphocytes % (Manual) Monocytes % (Manual) Eosinophils % (Manual) Basophils % (Manual) Seg Neutrophils # 8.1 H Seg Neutrophils # Man Lymphocytes # (Manual) Monocytes # (Manual) Eosinophils # (Manual) Nucleated RBC % Basophils # (Manual) PT INR APTT Heparin Anti-Xa Level ABG pH POC ABG pO2 ABG pO2 ABG HCO3 ABG O2 Saturation ABG Base Excess POC ABG pCO2 ABG Hemoglobin ABG Oxyhemoglobin ABG Chloride ABG Glucose Oxyhemoglobin Sodium Potassium Chloride Carbon Dioxide BUN 23 H Creatinine Glucose 123 H POC Glucose 112 H Lactic Acid Calcium Phosphorus Magnesium AST ALT Lactate Dehydrogenase Total Bilirubin Direct Bilirubin CK-MB (CK-2) C-Reactive Protein NT-Pro-B Natriuret Pep Total Protein Albumin 3.7 L Arterial Blood Glucose Urine WBC (Auto) Urine Creatinine 11/28/19 11/29/19 11/29/19 17:26 03:55 17:04 WBC RBC Hgb Hct MCHC RDW MCV MCH Lymph % (Auto) [place] % (Auto) [place] # Eos # Lymph # (Auto) [place] # (Auto) Eos # (Auto) Seg Neutrophils % Seg Neuts % (Manual) Baso # (Auto) Lymphocytes % (Manual) Monocytes % (Manual) Eosinophils % (Manual) Basophils % (Manual) Seg Neutrophils # Seg Neutrophils # Man Lymphocytes # (Manual) Monocytes # (Manual) Eosinophils # (Manual) Nucleated RBC % Basophils # (Manual) PT INR APTT Heparin Anti-Xa Level ABG pH POC ABG pO2 ABG pO2 65.7 L ABG HCO3 28.3 H ABG O2 Saturation 93.9 L ABG Base Excess 3.6 H POC ABG pCO2 ABG Hemoglobin 13.3 L ABG Oxyhemoglobin ABG Chloride ABG Glucose Oxyhemoglobin 91.5 L Sodium Potassium Chloride Carbon Dioxide BUN Creatinine Glucose POC Glucose 123 H 119 H Lactic Acid Calcium Phosphorus Magnesium AST ALT Lactate Dehydrogenase Total Bilirubin Direct Bilirubin CK-MB (CK-2) C-Reactive Protein NT-Pro-B Natriuret Pep Total Protein Albumin Arterial Blood Glucose Urine WBC (Auto) Urine Creatinine 11/30/19 11/30/19 11/30/19 04:17 04:17 04:56 WBC 13.4 H RBC Hgb Hct MCHC RDW 15.6 H MCV MCH Lymph % (Auto) [place] % (Auto) [place] # Eos # Lymph # (Auto) [place] # (Auto) Eos # (Auto) Seg Neutrophils % Seg Neuts % (Manual) Baso # (Auto) Lymphocytes % (Manual) Monocytes % (Manual) Eosinophils % (Manual) Basophils % (Manual) Seg Neutrophils # Seg Neutrophils # Man Lymphocytes # (Manual) Monocytes # (Manual) Eosinophils # (Manual) Nucleated RBC % Basophils # (Manual) PT INR APTT Heparin Anti-Xa Level ABG pH POC ABG pO2 ABG pO2 56.3 L ABG HCO3 29.3 H ABG O2 Saturation 91.5 L ABG Base Excess 4.7 H POC ABG pCO2 ABG Hemoglobin 12.1 L ABG Oxyhemoglobin ABG Chloride ABG Glucose Oxyhemoglobin 89.2 L Sodium 147 H Potassium Chloride Carbon Dioxide BUN 30 H Creatinine Glucose 124 H POC Glucose Lactic Acid Calcium Phosphorus Magnesium AST ALT Lactate Dehydrogenase Total Bilirubin Direct Bilirubin CK-MB (CK-2) C-Reactive Protein NT-Pro-B Natriuret Pep Total Protein Albumin 3.8 L Arterial Blood Glucose Urine WBC (Auto) Urine Creatinine 11/30/19 11/30/19 11/30/19 05:51 11:54 18:17 WBC RBC Hgb Hct MCHC RDW MCV MCH Lymph % (Auto) [place] % (Auto) [place] # Eos # Lymph # (Auto) [place] # (Auto) Eos # (Auto) Seg Neutrophils % Seg Neuts % (Manual) Baso # (Auto) Lymphocytes % (Manual) Monocytes % (Manual) Eosinophils % (Manual) Basophils % (Manual) Seg Neutrophils # Seg Neutrophils # Man Lymphocytes # (Manual) Monocytes # (Manual) Eosinophils # (Manual) Nucleated RBC % Basophils # (Manual) PT INR APTT Heparin Anti-Xa Level ABG pH POC ABG pO2 ABG pO2 ABG HCO3 ABG O2 Saturation ABG Base Excess POC ABG pCO2 ABG Hemoglobin ABG Oxyhemoglobin ABG Chloride ABG Glucose Oxyhemoglobin Sodium Potassium Chloride Carbon Dioxide BUN Creatinine Glucose POC Glucose 127 H 115 H 143 H Lactic Acid Calcium Phosphorus Magnesium AST ALT Lactate Dehydrogenase Total Bilirubin Direct Bilirubin CK-MB (CK-2) C-Reactive Protein NT-Pro-B Natriuret Pep Total Protein Albumin Arterial Blood Glucose Urine WBC (Auto) Urine Creatinine 12/01/19 12/01/19 12/01/19 01:18 05:22 12:16 WBC RBC Hgb Hct MCHC RDW MCV MCH Lymph % (Auto) [place] % (Auto) [place] # Eos # Lymph # (Auto) [place] # (Auto) Eos # (Auto) Seg Neutrophils % Seg Neuts % (Manual) Baso # (Auto) Lymphocytes % (Manual) Monocytes % (Manual) Eosinophils % (Manual) Basophils % (Manual) Seg Neutrophils # Seg Neutrophils # Man Lymphocytes # (Manual) Monocytes # (Manual) Eosinophils # (Manual) Nucleated RBC % Basophils # (Manual) PT INR APTT Heparin Anti-Xa Level ABG pH POC ABG pO2 ABG pO2 ABG HCO3 ABG O2 Saturation ABG Base Excess POC ABG pCO2 ABG Hemoglobin ABG Oxyhemoglobin ABG Chloride ABG Glucose Oxyhemoglobin Sodium Potassium 3.5 L Chloride 107.8 H Carbon Dioxide BUN 37 H Creatinine Glucose 157 H POC Glucose 118 H 148 H Lactic Acid Calcium 8.2 L D Phosphorus Magnesium AST 48 H ALT 60 H Lactate Dehydrogenase 194 H Total Bilirubin Direct Bilirubin CK-MB (CK-2) C-Reactive Protein 8.50 H NT-Pro-B Natriuret Pep Total Protein 5.5 L Albumin 2.8 L Arterial Blood Glucose Urine WBC (Auto) Urine Creatinine 12/01/19 12/02/19 12/02/19 18:04 00:05 05:16 WBC 11.4 H RBC Hgb Hct MCHC RDW 15.9 H MCV MCH Lymph % (Auto) [place] % (Auto) 9.9 H [place] # 1.1 H Eos # Lymph # (Auto) [place] # (Auto) Eos # (Auto) Seg Neutrophils % 70.3 H Seg Neuts % (Manual) Baso # (Auto) Lymphocytes % (Manual) Monocytes % (Manual) Eosinophils % (Manual) Basophils % (Manual) Seg Neutrophils # 8.0 H Seg Neutrophils # Man Lymphocytes # (Manual) Monocytes # (Manual) Eosinophils # (Manual) Nucleated RBC % Basophils # (Manual) PT INR APTT Heparin Anti-Xa Level ABG pH POC ABG pO2 ABG pO2 ABG HCO3 ABG O2 Saturation ABG Base Excess POC ABG pCO2 ABG Hemoglobin ABG Oxyhemoglobin ABG Chloride ABG Glucose Oxyhemoglobin Sodium Potassium Chloride Carbon Dioxide BUN Creatinine Glucose POC Glucose 143 H 107 H Lactic Acid Calcium Phosphorus Magnesium AST ALT Lactate Dehydrogenase Total Bilirubin Direct Bilirubin CK-MB (CK-2) C-Reactive Protein NT-Pro-B Natriuret Pep Total Protein Albumin Arterial Blood Glucose Urine WBC (Auto) Urine Creatinine 12/02/19 12/02/19 12/02/19 05:16 06:03 11:52 WBC RBC Hgb Hct MCHC RDW MCV MCH Lymph % (Auto) [place] % (Auto) [place] # Eos # Lymph # (Auto) [place] # (Auto) Eos # (Auto) Seg Neutrophils % Seg Neuts % (Manual) Baso # (Auto) Lymphocytes % (Manual) Monocytes % (Manual) Eosinophils % (Manual) Basophils % (Manual) Seg Neutrophils # Seg Neutrophils # Man Lymphocytes # (Manual) Monocytes # (Manual) Eosinophils # (Manual) Nucleated RBC % Basophils # (Manual) PT INR APTT Heparin Anti-Xa Level ABG pH POC ABG pO2 ABG pO2 ABG HCO3 ABG O2 Saturation ABG Base Excess POC ABG pCO2 ABG Hemoglobin ABG Oxyhemoglobin ABG Chloride ABG Glucose Oxyhemoglobin Sodium 146 H Potassium Chloride Carbon Dioxide BUN 28 H Creatinine Glucose 123 H POC Glucose 110 H 152 H Lactic Acid Calcium Phosphorus Magnesium AST ALT Lactate Dehydrogenase Total Bilirubin Direct Bilirubin CK-MB (CK-2) C-Reactive Protein NT-Pro-B Natriuret Pep Total Protein Albumin Arterial Blood Glucose Urine WBC (Auto) Urine Creatinine 12/02/19 12/02/19 12/02/19 12:58 17:58 23:36 WBC RBC Hgb Hct MCHC RDW MCV MCH Lymph % (Auto) [place] % (Auto) [place] # Eos # Lymph # (Auto) [place] # (Auto) Eos # (Auto) Seg Neutrophils % Seg Neuts % (Manual) Baso # (Auto) Lymphocytes % (Manual) Monocytes % (Manual) Eosinophils % (Manual) Basophils % (Manual) Seg Neutrophils # Seg Neutrophils # Man Lymphocytes # (Manual) Monocytes # (Manual) Eosinophils # (Manual) Nucleated RBC % Basophils # (Manual) PT INR APTT Heparin Anti-Xa Level ABG pH POC ABG pO2 78.1 L ABG pO2 ABG HCO3 ABG O2 Saturation ABG Base Excess POC ABG pCO2 ABG Hemoglobin ABG Oxyhemoglobin ABG Chloride ABG Glucose Oxyhemoglobin Sodium Potassium Chloride Carbon Dioxide BUN Creatinine Glucose POC Glucose 120 H 123 H Lactic Acid Calcium Phosphorus Magnesium AST ALT Lactate Dehydrogenase Total Bilirubin Direct Bilirubin CK-MB (CK-2) C-Reactive Protein NT-Pro-B Natriuret Pep Total Protein Albumin Arterial Blood Glucose Urine WBC (Auto) Urine Creatinine 12/03/19 12/03/19 12/03/19 06:03 06:14 11:46 WBC RBC Hgb Hct MCHC RDW MCV MCH Lymph % (Auto) [place] % (Auto) [place] # Eos # Lymph # (Auto) [place] # (Auto) Eos # (Auto) Seg Neutrophils % Seg Neuts % (Manual) Baso # (Auto) Lymphocytes % (Manual) Monocytes % (Manual) Eosinophils % (Manual) Basophils % (Manual) Seg Neutrophils # Seg Neutrophils # Man Lymphocytes # (Manual) Monocytes # (Manual) Eosinophils # (Manual) Nucleated RBC % Basophils # (Manual) PT INR APTT Heparin Anti-Xa Level ABG pH POC ABG pO2 ABG pO2 ABG HCO3 ABG O2 Saturation ABG Base Excess POC ABG pCO2 ABG Hemoglobin ABG Oxyhemoglobin ABG Chloride ABG Glucose Oxyhemoglobin Sodium Potassium Chloride Carbon Dioxide BUN Creatinine Glucose POC Glucose 142 H 130 H Lactic Acid Calcium Phosphorus Magnesium AST ALT Lactate Dehydrogenase Total Bilirubin Direct Bilirubin CK-MB (CK-2) C-Reactive Protein NT-Pro-B Natriuret Pep Total Protein Albumin Arterial Blood Glucose Urine WBC (Auto) 8.0 H Urine Creatinine 12/03/19 12/03/19 12/04/19 15:50 17:39 00:04 WBC RBC Hgb Hct MCHC RDW MCV MCH Lymph % (Auto) [place] % (Auto) [place] # Eos # Lymph # (Auto) [place] # (Auto) Eos # (Auto) Seg Neutrophils % Seg Neuts % (Manual) Baso # (Auto) Lymphocytes % (Manual) Monocytes % (Manual) Eosinophils % (Manual) Basophils % (Manual) Seg Neutrophils # Seg Neutrophils # Man Lymphocytes # (Manual) Monocytes # (Manual) Eosinophils # (Manual) Nucleated RBC % Basophils # (Manual) PT INR APTT Heparin Anti-Xa Level ABG pH POC ABG pO2 ABG pO2 ABG HCO3 ABG O2 Saturation ABG Base Excess POC ABG pCO2 ABG Hemoglobin ABG Oxyhemoglobin ABG Chloride ABG Glucose Oxyhemoglobin Sodium Potassium Chloride Carbon Dioxide BUN Creatinine Glucose POC Glucose 146 H 133 H Lactic Acid Calcium Phosphorus 2.40 L Magnesium AST ALT Lactate Dehydrogenase Total Bilirubin Direct Bilirubin CK-MB (CK-2) C-Reactive Protein NT-Pro-B Natriuret Pep Total Protein Albumin Arterial Blood Glucose Urine WBC (Auto) Urine Creatinine 12/04/19 12/04/19 12/04/19 03:58 03:58 05:22 WBC 12.5 H RBC Hgb 11.2 L Hct 35.2 L MCHC RDW 16.0 H MCV MCH Lymph % (Auto) [place] % (Auto) 9.6 H [place] # 1.2 H Eos # 0.5 H Lymph # (Auto) [place] # (Auto) Eos # (Auto) Seg Neutrophils % Seg Neuts % (Manual) Baso # (Auto) Lymphocytes % (Manual) Monocytes % (Manual) Eosinophils % (Manual) Basophils % (Manual) Seg Neutrophils # 8.6 H Seg Neutrophils # Man Lymphocytes # (Manual) Monocytes # (Manual) Eosinophils # (Manual) Nucleated RBC % Basophils # (Manual) PT INR APTT Heparin Anti-Xa Level ABG pH POC ABG pO2 ABG pO2 ABG HCO3 ABG O2 Saturation ABG Base Excess POC ABG pCO2 ABG Hemoglobin ABG Oxyhemoglobin ABG Chloride ABG Glucose Oxyhemoglobin Sodium 146 H Potassium Chloride 108.6 H Carbon Dioxide BUN 30 H Creatinine 0.7 L Glucose 121 H POC Glucose 132 H Lactic Acid Calcium Phosphorus Magnesium AST ALT Lactate Dehydrogenase Total Bilirubin Direct Bilirubin CK-MB (CK-2) C-Reactive Protein NT-Pro-B Natriuret Pep Total Protein Albumin Arterial Blood Glucose Urine WBC (Auto) Urine Creatinine 12/04/19 12/04/19 12/05/19 13:26 18:43 00:19 WBC RBC Hgb Hct MCHC RDW MCV MCH Lymph % (Auto) [place] % (Auto) [place] # Eos # Lymph # (Auto) [place] # (Auto) Eos # (Auto) Seg Neutrophils % Seg Neuts % (Manual) Baso # (Auto) Lymphocytes % (Manual) Monocytes % (Manual) Eosinophils % (Manual) Basophils % (Manual) Seg Neutrophils # Seg Neutrophils # Man Lymphocytes # (Manual) Monocytes # (Manual) Eosinophils # (Manual) Nucleated RBC % Basophils # (Manual) PT INR APTT Heparin Anti-Xa Level ABG pH POC ABG pO2 ABG pO2 ABG HCO3 ABG O2 Saturation ABG Base Excess POC ABG pCO2 ABG Hemoglobin ABG Oxyhemoglobin ABG Chloride ABG Glucose Oxyhemoglobin Sodium Potassium Chloride Carbon Dioxide BUN Creatinine Glucose POC Glucose 185 H 156 H 150 H Lactic Acid Calcium Phosphorus Magnesium AST ALT Lactate Dehydrogenase Total Bilirubin Direct Bilirubin CK-MB (CK-2) C-Reactive Protein NT-Pro-B Natriuret Pep Total Protein Albumin Arterial Blood Glucose Urine WBC (Auto) Urine Creatinine 12/05/19 12/05/19 12/05/19 03:37 03:37 05:14 WBC 16.3 H RBC Hgb 11.4 L Hct MCHC RDW 15.6 H MCV MCH Lymph % (Auto) 9.9 L [place] % (Auto) 9.7 H [place] # 1.6 H Eos # Lymph # (Auto) [place] # (Auto) Eos # (Auto) Seg Neutrophils % 78.0 H Seg Neuts % (Manual) Baso # (Auto) Lymphocytes % (Manual) Monocytes % (Manual) Eosinophils % (Manual) Basophils % (Manual) Seg Neutrophils # 12.7 H Seg Neutrophils # Man Lymphocytes # (Manual) Monocytes # (Manual) Eosinophils # (Manual) Nucleated RBC % Basophils # (Manual) PT INR APTT Heparin Anti-Xa Level ABG pH POC ABG pO2 ABG pO2 ABG HCO3 ABG O2 Saturation ABG Base Excess POC ABG pCO2 ABG Hemoglobin ABG Oxyhemoglobin ABG Chloride ABG Glucose Oxyhemoglobin Sodium 146 H Potassium Chloride 107.2 H Carbon Dioxide BUN 27 H Creatinine 0.7 L Glucose 171 H POC Glucose 168 H Lactic Acid Calcium Phosphorus Magnesium AST ALT Lactate Dehydrogenase Total Bilirubin Direct Bilirubin CK-MB (CK-2) C-Reactive Protein NT-Pro-B Natriuret Pep Total Protein Albumin Arterial Blood Glucose Urine WBC (Auto) Urine Creatinine 12/05/19 12/05/19 12/05/19 12:31 18:10 23:58 WBC RBC Hgb Hct MCHC RDW MCV MCH Lymph % (Auto) [place] % (Auto) [place] # Eos # Lymph # (Auto) [place] # (Auto) Eos # (Auto) Seg Neutrophils % Seg Neuts % (Manual) Baso # (Auto) Lymphocytes % (Manual) Monocytes % (Manual) Eosinophils % (Manual) Basophils % (Manual) Seg Neutrophils # Seg Neutrophils # Man Lymphocytes # (Manual) Monocytes # (Manual) Eosinophils # (Manual) Nucleated RBC % Basophils # (Manual) PT INR APTT Heparin Anti-Xa Level ABG pH POC ABG pO2 ABG pO2 ABG HCO3 ABG O2 Saturation ABG Base Excess POC ABG pCO2 ABG Hemoglobin ABG Oxyhemoglobin ABG Chloride ABG Glucose Oxyhemoglobin Sodium Potassium Chloride Carbon Dioxide BUN Creatinine Glucose POC Glucose 159 H 198 H 115 H Lactic Acid Calcium Phosphorus Magnesium AST ALT Lactate Dehydrogenase Total Bilirubin Direct Bilirubin CK-MB (CK-2) C-Reactive Protein NT-Pro-B Natriuret Pep Total Protein Albumin Arterial Blood Glucose Urine WBC (Auto) Urine Creatinine 12/06/19 12/06/19 12/06/19 05:24 05:24 05:25 WBC 14.9 H RBC Hgb 10.8 L Hct 34.0 L MCHC RDW 15.6 H MCV MCH Lymph % (Auto) 10.7 L [place] % (Auto) 8.3 H [place] # 1.2 H Eos # Lymph # (Auto) [place] # (Auto) Eos # (Auto) Seg Neutrophils % 78.7 H Seg Neuts % (Manual) Baso # (Auto) Lymphocytes % (Manual) Monocytes % (Manual) Eosinophils % (Manual) Basophils % (Manual) Seg Neutrophils # 11.7 H Seg Neutrophils # Man Lymphocytes # (Manual) Monocytes # (Manual) Eosinophils # (Manual) Nucleated RBC % Basophils # (Manual) PT INR APTT Heparin Anti-Xa Level ABG pH POC ABG pO2 ABG pO2 ABG HCO3 ABG O2 Saturation ABG Base Excess POC ABG pCO2 ABG Hemoglobin ABG Oxyhemoglobin ABG Chloride ABG Glucose Oxyhemoglobin Sodium 148 H Potassium 5.1 H Chloride 107.6 H Carbon Dioxide BUN 27 H Creatinine 0.7 L Glucose 155 H POC Glucose 157 H Lactic Acid Calcium Phosphorus Magnesium AST ALT Lactate Dehydrogenase Total Bilirubin Direct Bilirubin CK-MB (CK-2) C-Reactive Protein NT-Pro-B Natriuret Pep Total Protein Albumin Arterial Blood Glucose Urine WBC (Auto) Urine Creatinine 12/07/19 12/07/19 12/07/19 00:13 05:34 11:33 WBC RBC Hgb Hct MCHC RDW MCV MCH Lymph % (Auto) [place] % (Auto) [place] # Eos # Lymph # (Auto) [place] # (Auto) Eos # (Auto) Seg Neutrophils % Seg Neuts % (Manual) Baso # (Auto) Lymphocytes % (Manual) Monocytes % (Manual) Eosinophils % (Manual) Basophils % (Manual) Seg Neutrophils # Seg Neutrophils # Man Lymphocytes # (Manual) Monocytes # (Manual) Eosinophils # (Manual) Nucleated RBC % Basophils # (Manual) PT INR APTT Heparin Anti-Xa Level ABG pH POC ABG pO2 ABG pO2 ABG HCO3 ABG O2 Saturation ABG Base Excess POC ABG pCO2 ABG Hemoglobin ABG Oxyhemoglobin ABG Chloride ABG Glucose Oxyhemoglobin Sodium Potassium Chloride Carbon Dioxide BUN Creatinine Glucose POC Glucose 142 H 111 H 169 H Lactic Acid Calcium Phosphorus Magnesium AST ALT Lactate Dehydrogenase Total Bilirubin Direct Bilirubin CK-MB (CK-2) C-Reactive Protein NT-Pro-B Natriuret Pep Total Protein Albumin Arterial Blood Glucose Urine WBC (Auto) Urine Creatinine 12/07/19 12/07/19 12/07/19 12:41 13:25 18:19 WBC 12.4 H RBC 3.53 L Hgb 10.2 L Hct 32.1 L MCHC RDW 15.3 H MCV MCH Lymph % (Auto) 10.6 L [place] % (Auto) 7.8 H [place] # 1.0 H Eos # Lymph # (Auto) [place] # (Auto) Eos # (Auto) Seg Neutrophils % 77.6 H Seg Neuts % (Manual) Baso # (Auto) Lymphocytes % (Manual) Monocytes % (Manual) Eosinophils % (Manual) Basophils % (Manual) Seg Neutrophils # 9.6 H Seg Neutrophils # Man Lymphocytes # (Manual) Monocytes # (Manual) Eosinophils # (Manual) Nucleated RBC % Basophils # (Manual) PT INR APTT Heparin Anti-Xa Level ABG pH POC ABG pO2 ABG pO2 ABG HCO3 ABG O2 Saturation ABG Base Excess POC ABG pCO2 ABG Hemoglobin ABG Oxyhemoglobin ABG Chloride ABG Glucose Oxyhemoglobin Sodium 149 H Potassium Chloride 108.4 H Carbon Dioxide BUN 26 H Creatinine 0.6 L Glucose 149 H POC Glucose 164 H Lactic Acid Calcium Phosphorus Magnesium 2.60 H AST 121 H ALT 145 H Lactate Dehydrogenase Total Bilirubin Direct Bilirubin CK-MB (CK-2) C-Reactive Protein NT-Pro-B Natriuret Pep Total Protein Albumin 2.6 L Arterial Blood Glucose Urine WBC (Auto) Urine Creatinine 12/07/19 12/08/19 12/08/19 22:25 00:02 03:55 WBC 13.3 H RBC 3.40 L Hgb 9.7 L Hct 30.8 L MCHC 31 L RDW 15.5 H MCV MCH Lymph % (Auto) [place] % (Auto) 8.1 H [place] # 1.1 H Eos # Lymph # (Auto) [place] # (Auto) Eos # (Auto) Seg Neutrophils % 73.0 H Seg Neuts % (Manual) Baso # (Auto) Lymphocytes % (Manual) Monocytes % (Manual) Eosinophils % (Manual) Basophils % (Manual) Seg Neutrophils # 9.7 H Seg Neutrophils # Man Lymphocytes # (Manual) Monocytes # (Manual) Eosinophils # (Manual) Nucleated RBC % Basophils # (Manual) PT INR APTT Heparin Anti-Xa Level 0.12 L ABG pH POC ABG pO2 ABG pO2 ABG HCO3 ABG O2 Saturation ABG Base Excess POC ABG pCO2 ABG Hemoglobin ABG Oxyhemoglobin ABG Chloride ABG Glucose Oxyhemoglobin Sodium Potassium Chloride Carbon Dioxide BUN Creatinine Glucose POC Glucose 151 H Lactic Acid Calcium Phosphorus Magnesium AST ALT Lactate Dehydrogenase Total Bilirubin Direct Bilirubin CK-MB (CK-2) C-Reactive Protein NT-Pro-B Natriuret Pep Total Protein Albumin Arterial Blood Glucose Urine WBC (Auto) Urine Creatinine 12/08/19 12/08/19 12/08/19 03:55 05:21 06:01 WBC RBC Hgb Hct MCHC RDW MCV MCH Lymph % (Auto) [place] % (Auto) [place] # Eos # Lymph # (Auto) [place] # (Auto) Eos # (Auto) Seg Neutrophils % Seg Neuts % (Manual) Baso # (Auto) Lymphocytes % (Manual) Monocytes % (Manual) Eosinophils % (Manual) Basophils % (Manual) Seg Neutrophils # Seg Neutrophils # Man Lymphocytes # (Manual) Monocytes # (Manual) Eosinophils # (Manual) Nucleated RBC % Basophils # (Manual) PT INR APTT Heparin Anti-Xa Level 0.20 L ABG pH POC ABG pO2 ABG pO2 ABG HCO3 ABG O2 Saturation ABG Base Excess POC ABG pCO2 ABG Hemoglobin ABG Oxyhemoglobin ABG Chloride ABG Glucose Oxyhemoglobin Sodium 149 H Potassium Chloride 108.0 H Carbon Dioxide BUN 28 H Creatinine 0.6 L Glucose 144 H POC Glucose 143 H Lactic Acid Calcium Phosphorus Magnesium AST 98 H ALT 145 H Lactate Dehydrogenase Total Bilirubin Direct Bilirubin CK-MB (CK-2) C-Reactive Protein NT-Pro-B Natriuret Pep Total Protein 6.0 L Albumin 2.4 L Arterial Blood Glucose Urine WBC (Auto) Urine Creatinine 12/08/19 12/08/19 12/08/19 12:08 18:11 23:53 WBC RBC Hgb Hct MCHC RDW MCV MCH Lymph % (Auto) [place] % (Auto) [place] # Eos # Lymph # (Auto) [place] # (Auto) Eos # (Auto) Seg Neutrophils % Seg Neuts % (Manual) Baso # (Auto) Lymphocytes % (Manual) Monocytes % (Manual) Eosinophils % (Manual) Basophils % (Manual) Seg Neutrophils # Seg Neutrophils # Man Lymphocytes # (Manual) Monocytes # (Manual) Eosinophils # (Manual) Nucleated RBC % Basophils # (Manual) PT INR APTT Heparin Anti-Xa Level ABG pH POC ABG pO2 ABG pO2 ABG HCO3 ABG O2 Saturation ABG Base Excess POC ABG pCO2 ABG Hemoglobin ABG Oxyhemoglobin ABG Chloride ABG Glucose Oxyhemoglobin Sodium Potassium Chloride Carbon Dioxide BUN Creatinine Glucose POC Glucose 172 H 122 H 162 H Lactic Acid Calcium Phosphorus Magnesium AST ALT Lactate Dehydrogenase Total Bilirubin Direct Bilirubin CK-MB (CK-2) C-Reactive Protein NT-Pro-B Natriuret Pep Total Protein Albumin Arterial Blood Glucose Urine WBC (Auto) Urine Creatinine 12/09/19 12/09/19 12/09/19 04:03 04:03 05:53 WBC RBC Hgb 9.1 L Hct 28.9 L MCHC RDW MCV MCH Lymph % (Auto) [place] % (Auto) [place] # Eos # Lymph # (Auto) [place] # (Auto) Eos # (Auto) Seg Neutrophils % Seg Neuts % (Manual) Baso # (Auto) Lymphocytes % (Manual) Monocytes % (Manual) Eosinophils % (Manual) Basophils % (Manual) Seg Neutrophils # Seg Neutrophils # Man Lymphocytes # (Manual) Monocytes # (Manual) Eosinophils # (Manual) Nucleated RBC % Basophils # (Manual) PT INR APTT Heparin Anti-Xa Level 0.15 L ABG pH POC ABG pO2 ABG pO2 ABG HCO3 ABG O2 Saturation ABG Base Excess POC ABG pCO2 ABG Hemoglobin ABG Oxyhemoglobin ABG Chloride ABG Glucose Oxyhemoglobin Sodium Potassium Chloride Carbon Dioxide BUN Creatinine Glucose POC Glucose 124 H Lactic Acid Calcium Phosphorus Magnesium AST ALT Lactate Dehydrogenase Total Bilirubin Direct Bilirubin CK-MB (CK-2) C-Reactive Protein NT-Pro-B Natriuret Pep Total Protein Albumin Arterial Blood Glucose Urine WBC (Auto) Urine Creatinine 12/09/19 12/09/19 12/10/19 09:43 12:41 00:13 WBC RBC Hgb Hct MCHC RDW MCV MCH Lymph % (Auto) [place] % (Auto) [place] # Eos # Lymph # (Auto) [place] # (Auto) Eos # (Auto) Seg Neutrophils % Seg Neuts % (Manual) Baso # (Auto) Lymphocytes % (Manual) Monocytes % (Manual) Eosinophils % (Manual) Basophils % (Manual) Seg Neutrophils # Seg Neutrophils # Man Lymphocytes # (Manual) Monocytes # (Manual) Eosinophils # (Manual) Nucleated RBC % Basophils # (Manual) PT INR APTT Heparin Anti-Xa Level ABG pH POC ABG pO2 ABG pO2 ABG HCO3 ABG O2 Saturation ABG Base Excess POC ABG pCO2 ABG Hemoglobin ABG Oxyhemoglobin ABG Chloride ABG Glucose Oxyhemoglobin Sodium Potassium Chloride Carbon Dioxide BUN 25 H Creatinine 0.6 L Glucose 131 H POC Glucose 109 H 120 H Lactic Acid Calcium Phosphorus Magnesium AST ALT Lactate Dehydrogenase Total Bilirubin Direct Bilirubin CK-MB (CK-2) C-Reactive Protein NT-Pro-B Natriuret Pep Total Protein Albumin Arterial Blood Glucose Urine WBC (Auto) Urine Creatinine 12/10/19 12/10/19 12/10/19 04:14 04:14 12:00 WBC 13.3 H RBC 3.34 L Hgb 9.6 L Hct 30.4 L MCHC RDW 15.4 H MCV MCH Lymph % (Auto) [place] % (Auto) [place] # Eos # Lymph # (Auto) [place] # (Auto) Eos # (Auto) Seg Neutrophils % Seg Neuts % (Manual) 75.0 H Baso # (Auto) Lymphocytes % (Manual) 13.0 L Monocytes % (Manual) 8.0 H Eosinophils % (Manual) Basophils % (Manual) 2.0 H Seg Neutrophils # Seg Neutrophils # Man 10.0 H Lymphocytes # (Manual) Monocytes # (Manual) 1.1 H Eosinophils # (Manual) Nucleated RBC % Basophils # (Manual) 0.3 H PT INR APTT Heparin Anti-Xa Level ABG pH POC ABG pO2 ABG pO2 ABG HCO3 ABG O2 Saturation ABG Base Excess POC ABG pCO2 ABG Hemoglobin ABG Oxyhemoglobin ABG Chloride ABG Glucose Oxyhemoglobin Sodium 147 H Potassium Chloride 108.3 H Carbon Dioxide BUN 21 H Creatinine 0.6 L Glucose 104 H POC Glucose 133 H Lactic Acid Calcium Phosphorus Magnesium AST ALT Lactate Dehydrogenase Total Bilirubin Direct Bilirubin CK-MB (CK-2) C-Reactive Protein NT-Pro-B Natriuret Pep Total Protein Albumin Arterial Blood Glucose Urine WBC (Auto) Urine Creatinine 12/10/19 12/10/19 12/11/19 18:44 21:20 00:08 WBC 14.9 H RBC 3.36 L Hgb 9.6 L Hct 30.5 L MCHC RDW 15.4 H MCV MCH Lymph % (Auto) [place] % (Auto) [place] # Eos # Lymph # (Auto) [place] # (Auto) Eos # (Auto) Seg Neutrophils % Seg Neuts % (Manual) Baso # (Auto) Lymphocytes % (Manual) Monocytes % (Manual) Eosinophils % (Manual) Basophils % (Manual) Seg Neutrophils # Seg Neutrophils # Man Lymphocytes # (Manual) Monocytes # (Manual) Eosinophils # (Manual) Nucleated RBC % Basophils # (Manual) PT INR APTT Heparin Anti-Xa Level ABG pH POC ABG pO2 ABG pO2 ABG HCO3 ABG O2 Saturation ABG Base Excess POC ABG pCO2 ABG Hemoglobin ABG Oxyhemoglobin ABG Chloride ABG Glucose Oxyhemoglobin Sodium Potassium Chloride Carbon Dioxide BUN Creatinine Glucose POC Glucose 119 H 134 H Lactic Acid Calcium Phosphorus Magnesium AST ALT Lactate Dehydrogenase Total Bilirubin Direct Bilirubin CK-MB (CK-2) C-Reactive Protein NT-Pro-B Natriuret Pep Total Protein Albumin Arterial Blood Glucose Urine WBC (Auto) Urine Creatinine 12/11/19 12/11/19 12/11/19 03:54 07:28 08:36 WBC 11.9 H RBC 3.25 L Hgb 9.6 L Hct 29.2 L MCHC RDW 15.7 H MCV MCH Lymph % (Auto) [place] % (Auto) [place] # Eos # Lymph # (Auto) [place] # (Auto) Eos # (Auto) Seg Neutrophils % Seg Neuts % (Manual) Baso # (Auto) Lymphocytes % (Manual) Monocytes % (Manual) Eosinophils % (Manual) Basophils % (Manual) Seg Neutrophils # Seg Neutrophils # Man Lymphocytes # (Manual) Monocytes # (Manual) Eosinophils # (Manual) Nucleated RBC % Basophils # (Manual) PT INR APTT Heparin Anti-Xa Level 0.10 L 0.16 L ABG pH POC ABG pO2 ABG pO2 ABG HCO3 ABG O2 Saturation ABG Base Excess POC ABG pCO2 ABG Hemoglobin ABG Oxyhemoglobin ABG Chloride ABG Glucose Oxyhemoglobin Sodium Potassium Chloride Carbon Dioxide BUN Creatinine Glucose POC Glucose Lactic Acid Calcium Phosphorus Magnesium AST ALT Lactate Dehydrogenase Total Bilirubin Direct Bilirubin CK-MB (CK-2) C-Reactive Protein NT-Pro-B Natriuret Pep Total Protein Albumin Arterial Blood Glucose Urine WBC (Auto) Urine Creatinine 12/11/19 12/11/19 12/11/19 08:36 11:45 17:15 WBC RBC Hgb Hct MCHC RDW MCV MCH Lymph % (Auto) [place] % (Auto) [place] # Eos # Lymph # (Auto) [place] # (Auto) Eos # (Auto) Seg Neutrophils % Seg Neuts % (Manual) Baso # (Auto) Lymphocytes % (Manual) Monocytes % (Manual) Eosinophils % (Manual) Basophils % (Manual) Seg Neutrophils # Seg Neutrophils # Man Lymphocytes # (Manual) Monocytes # (Manual) Eosinophils # (Manual) Nucleated RBC % Basophils # (Manual) PT INR APTT Heparin Anti-Xa Level ABG pH POC ABG pO2 ABG pO2 ABG HCO3 ABG O2 Saturation ABG Base Excess POC ABG pCO2 ABG Hemoglobin ABG Oxyhemoglobin ABG Chloride ABG Glucose Oxyhemoglobin Sodium Potassium Chloride Carbon Dioxide BUN Creatinine 0.5 L Glucose 128 H POC Glucose 136 H 109 H Lactic Acid Calcium Phosphorus Magnesium AST ALT Lactate Dehydrogenase Total Bilirubin Direct Bilirubin CK-MB (CK-2) C-Reactive Protein NT-Pro-B Natriuret Pep Total Protein Albumin Arterial Blood Glucose Urine WBC (Auto) Urine Creatinine 12/12/19 12/12/19 12/12/19 00:03 05:53 05:53 WBC RBC Hgb 8.8 L Hct 27.6 L MCHC RDW MCV MCH Lymph % (Auto) [place] % (Auto) [place] # Eos # Lymph # (Auto) [place] # (Auto) Eos # (Auto) Seg Neutrophils % Seg Neuts % (Manual) Baso # (Auto) Lymphocytes % (Manual) Monocytes % (Manual) Eosinophils % (Manual) Basophils % (Manual) Seg Neutrophils # Seg Neutrophils # Man Lymphocytes # (Manual) Monocytes # (Manual) Eosinophils # (Manual) Nucleated RBC % Basophils # (Manual) PT INR APTT Heparin Anti-Xa Level 0.22 L ABG pH POC ABG pO2 ABG pO2 ABG HCO3 ABG O2 Saturation ABG Base Excess POC ABG pCO2 ABG Hemoglobin ABG Oxyhemoglobin ABG Chloride ABG Glucose Oxyhemoglobin Sodium Potassium Chloride Carbon Dioxide BUN Creatinine Glucose POC Glucose 116 H Lactic Acid Calcium Phosphorus Magnesium AST ALT Lactate Dehydrogenase Total Bilirubin Direct Bilirubin CK-MB (CK-2) C-Reactive Protein NT-Pro-B Natriuret Pep Total Protein Albumin Arterial Blood Glucose Urine WBC (Auto) Urine Creatinine 12/12/19 12/12/19 12/12/19 09:38 12:18 17:44 WBC RBC Hgb Hct MCHC RDW MCV MCH Lymph % (Auto) [place] % (Auto) [place] # Eos # Lymph # (Auto) [place] # (Auto) Eos # (Auto) Seg Neutrophils % Seg Neuts % (Manual) Baso # (Auto) Lymphocytes % (Manual) Monocytes % (Manual) Eosinophils % (Manual) Basophils % (Manual) Seg Neutrophils # Seg Neutrophils # Man Lymphocytes # (Manual) Monocytes # (Manual) Eosinophils # (Manual) Nucleated RBC % Basophils # (Manual) PT INR APTT Heparin Anti-Xa Level ABG pH POC ABG pO2 ABG pO2 ABG HCO3 ABG O2 Saturation ABG Base Excess POC ABG pCO2 ABG Hemoglobin ABG Oxyhemoglobin ABG Chloride ABG Glucose Oxyhemoglobin Sodium Potassium Chloride Carbon Dioxide BUN Creatinine Glucose POC Glucose 115 H 146 H 146 H Lactic Acid Calcium Phosphorus Magnesium AST ALT Lactate Dehydrogenase Total Bilirubin Direct Bilirubin CK-MB (CK-2) C-Reactive Protein NT-Pro-B Natriuret Pep Total Protein Albumin Arterial Blood Glucose Urine WBC (Auto) Urine Creatinine 12/12/19 12/13/19 12/13/19 23:33 05:32 05:32 WBC 13.1 H RBC 3.27 L Hgb 9.5 L Hct 29.3 L MCHC RDW 15.6 H MCV MCH Lymph % (Auto) [place] % (Auto) [place] # Eos # Lymph # (Auto) [place] # (Auto) Eos # (Auto) Seg Neutrophils % Seg Neuts % (Manual) 74.0 H Baso # (Auto) Lymphocytes % (Manual) 8.0 L Monocytes % (Manual) 9.0 H Eosinophils % (Manual) 5.0 H Basophils % (Manual) Seg Neutrophils # Seg Neutrophils # Man 9.7 H Lymphocytes # (Manual) 1.0 L Monocytes # (Manual) 1.2 H Eosinophils # (Manual) 0.7 H Nucleated RBC % Basophils # (Manual) PT INR APTT Heparin Anti-Xa Level 0.20 L ABG pH POC ABG pO2 ABG pO2 ABG HCO3 ABG O2 Saturation ABG Base Excess POC ABG pCO2 ABG Hemoglobin ABG Oxyhemoglobin ABG Chloride ABG Glucose Oxyhemoglobin Sodium Potassium Chloride Carbon Dioxide BUN Creatinine Glucose POC Glucose 126 H Lactic Acid Calcium Phosphorus Magnesium AST ALT Lactate Dehydrogenase Total Bilirubin Direct Bilirubin CK-MB (CK-2) C-Reactive Protein NT-Pro-B Natriuret Pep Total Protein Albumin Arterial Blood Glucose Urine WBC (Auto) Urine Creatinine 12/13/19 12/13/19 12/13/19 05:32 05:46 11:57 WBC RBC Hgb Hct MCHC RDW MCV MCH Lymph % (Auto) [place] % (Auto) [place] # Eos # Lymph # (Auto) [place] # (Auto) Eos # (Auto) Seg Neutrophils % Seg Neuts % (Manual) Baso # (Auto) Lymphocytes % (Manual) Monocytes % (Manual) Eosinophils % (Manual) Basophils % (Manual) Seg Neutrophils # Seg Neutrophils # Man Lymphocytes # (Manual) Monocytes # (Manual) Eosinophils # (Manual) Nucleated RBC % Basophils # (Manual) PT INR APTT Heparin Anti-Xa Level ABG pH POC ABG pO2 ABG pO2 ABG HCO3 ABG O2 Saturation ABG Base Excess POC ABG pCO2 ABG Hemoglobin ABG Oxyhemoglobin ABG Chloride ABG Glucose Oxyhemoglobin Sodium Potassium Chloride Carbon Dioxide 31 H BUN Creatinine 0.6 L Glucose 114 H POC Glucose 118 H 133 H Lactic Acid Calcium Phosphorus Magnesium AST ALT Lactate Dehydrogenase Total Bilirubin Direct Bilirubin CK-MB (CK-2) C-Reactive Protein NT-Pro-B Natriuret Pep Total Protein Albumin Arterial Blood Glucose Urine WBC (Auto) Urine Creatinine 12/13/19 12/13/19 12/14/19 17:44 23:46 05:32 WBC RBC Hgb Hct MCHC RDW MCV MCH Lymph % (Auto) [place] % (Auto) [place] # Eos # Lymph # (Auto) [place] # (Auto) Eos # (Auto) Seg Neutrophils % Seg Neuts % (Manual) Baso # (Auto) Lymphocytes % (Manual) Monocytes % (Manual) Eosinophils % (Manual) Basophils % (Manual) Seg Neutrophils # Seg Neutrophils # Man Lymphocytes # (Manual) Monocytes # (Manual) Eosinophils # (Manual) Nucleated RBC % Basophils # (Manual) PT INR APTT Heparin Anti-Xa Level ABG pH POC ABG pO2 ABG pO2 ABG HCO3 ABG O2 Saturation ABG Base Excess POC ABG pCO2 ABG Hemoglobin ABG Oxyhemoglobin ABG Chloride ABG Glucose Oxyhemoglobin Sodium Potassium Chloride Carbon Dioxide BUN Creatinine Glucose POC Glucose 161 H 126 H 139 H Lactic Acid Calcium Phosphorus Magnesium AST ALT Lactate Dehydrogenase Total Bilirubin Direct Bilirubin CK-MB (CK-2) C-Reactive Protein NT-Pro-B Natriuret Pep Total Protein Albumin Arterial Blood Glucose Urine WBC (Auto) Urine Creatinine 12/14/19 12/14/19 12/14/19 06:03 06:03 09:37 WBC RBC Hgb 9.6 L Hct 30.4 L MCHC RDW MCV MCH Lymph % (Auto) [place] % (Auto) [place] # Eos # Lymph # (Auto) [place] # (Auto) Eos # (Auto) Seg Neutrophils % Seg Neuts % (Manual) Baso # (Auto) Lymphocytes % (Manual) Monocytes % (Manual) Eosinophils % (Manual) Basophils % (Manual) Seg Neutrophils # Seg Neutrophils # Man Lymphocytes # (Manual) Monocytes # (Manual) Eosinophils # (Manual) Nucleated RBC % Basophils # (Manual) PT INR APTT Heparin Anti-Xa Level 0.24 L ABG pH POC ABG pO2 ABG pO2 ABG HCO3 ABG O2 Saturation ABG Base Excess POC ABG pCO2 ABG Hemoglobin ABG Oxyhemoglobin ABG Chloride ABG Glucose Oxyhemoglobin Sodium Potassium Chloride Carbon Dioxide BUN Creatinine 0.6 L Glucose 162 H POC Glucose Lactic Acid Calcium Phosphorus Magnesium AST 71 H ALT 118 H Lactate Dehydrogenase Total Bilirubin Direct Bilirubin CK-MB (CK-2) C-Reactive Protein NT-Pro-B Natriuret Pep Total Protein 6.2 L Albumin 2.3 L Arterial Blood Glucose Urine WBC (Auto) Urine Creatinine 12/14/19 12/14/19 12/15/19 12:06 18:18 00:19 WBC RBC Hgb Hct MCHC RDW MCV MCH Lymph % (Auto) [place] % (Auto) [place] # Eos # Lymph # (Auto) [place] # (Auto) Eos # (Auto) Seg Neutrophils % Seg Neuts % (Manual) Baso # (Auto) Lymphocytes % (Manual) Monocytes % (Manual) Eosinophils % (Manual) Basophils % (Manual) Seg Neutrophils # Seg Neutrophils # Man Lymphocytes # (Manual) Monocytes # (Manual) Eosinophils # (Manual) Nucleated RBC % Basophils # (Manual) PT INR APTT Heparin Anti-Xa Level ABG pH POC ABG pO2 ABG pO2 ABG HCO3 ABG O2 Saturation ABG Base Excess POC ABG pCO2 ABG Hemoglobin ABG Oxyhemoglobin ABG Chloride ABG Glucose Oxyhemoglobin Sodium Potassium Chloride Carbon Dioxide BUN Creatinine Glucose POC Glucose 147 H 166 H 123 H Lactic Acid Calcium Phosphorus Magnesium AST ALT Lactate Dehydrogenase Total Bilirubin Direct Bilirubin CK-MB (CK-2) C-Reactive Protein NT-Pro-B Natriuret Pep Total Protein Albumin Arterial Blood Glucose Urine WBC (Auto) Urine Creatinine 12/15/19 12/15/19 12/15/19 05:28 05:29 05:29 WBC 14.9 H RBC 3.19 L Hgb 9.1 L Hct 28.7 L MCHC RDW 16.0 H MCV MCH Lymph % (Auto) [place] % (Auto) [place] # Eos # Lymph # (Auto) [place] # (Auto) Eos # (Auto) Seg Neutrophils % Seg Neuts % (Manual) Baso # (Auto) Lymphocytes % (Manual) Monocytes % (Manual) Eosinophils % (Manual) Basophils % (Manual) Seg Neutrophils # Seg Neutrophils # Man Lymphocytes # (Manual) Monocytes # (Manual) Eosinophils # (Manual) Nucleated RBC % Basophils # (Manual) PT INR APTT Heparin Anti-Xa Level 0.19 L ABG pH POC ABG pO2 ABG pO2 ABG HCO3 ABG O2 Saturation ABG Base Excess POC ABG pCO2 ABG Hemoglobin ABG Oxyhemoglobin ABG Chloride ABG Glucose Oxyhemoglobin Sodium Potassium Chloride Carbon Dioxide BUN Creatinine 0.6 L Glucose 110 H POC Glucose Lactic Acid Calcium Phosphorus Magnesium AST ALT Lactate Dehydrogenase Total Bilirubin Direct Bilirubin CK-MB (CK-2) C-Reactive Protein NT-Pro-B Natriuret Pep Total Protein Albumin Arterial Blood Glucose Urine WBC (Auto) Urine Creatinine 12/15/19 12/15/19 12/15/19 05:53 11:50 17:26 WBC RBC Hgb Hct MCHC RDW MCV MCH Lymph % (Auto) [place] % (Auto) [place] # Eos # Lymph # (Auto) [place] # (Auto) Eos # (Auto) Seg Neutrophils % Seg Neuts % (Manual) Baso # (Auto) Lymphocytes % (Manual) Monocytes % (Manual) Eosinophils % (Manual) Basophils % (Manual) Seg Neutrophils # Seg Neutrophils # Man Lymphocytes # (Manual) Monocytes # (Manual) Eosinophils # (Manual) Nucleated RBC % Basophils # (Manual) PT INR APTT Heparin Anti-Xa Level ABG pH POC ABG pO2 ABG pO2 ABG HCO3 ABG O2 Saturation ABG Base Excess POC ABG pCO2 ABG Hemoglobin ABG Oxyhemoglobin ABG Chloride ABG Glucose Oxyhemoglobin Sodium Potassium Chloride Carbon Dioxide BUN Creatinine Glucose POC Glucose 119 H 132 H 128 H Lactic Acid Calcium Phosphorus Magnesium AST ALT Lactate Dehydrogenase Total Bilirubin Direct Bilirubin CK-MB (CK-2) C-Reactive Protein NT-Pro-B Natriuret Pep Total Protein Albumin Arterial Blood Glucose Urine WBC (Auto) Urine Creatinine 12/15/19 12/16/19 12/16/19 23:11 05:30 05:46 WBC RBC Hgb 8.8 L Hct 27.9 L MCHC RDW MCV MCH Lymph % (Auto) [place] % (Auto) [place] # Eos # Lymph # (Auto) [place] # (Auto) Eos # (Auto) Seg Neutrophils % Seg Neuts % (Manual) Baso # (Auto) Lymphocytes % (Manual) Monocytes % (Manual) Eosinophils % (Manual) Basophils % (Manual) Seg Neutrophils # Seg Neutrophils # Man Lymphocytes # (Manual) Monocytes # (Manual) Eosinophils # (Manual) Nucleated RBC % Basophils # (Manual) PT INR APTT Heparin Anti-Xa Level ABG pH POC ABG pO2 ABG pO2 ABG HCO3 ABG O2 Saturation ABG Base Excess POC ABG pCO2 ABG Hemoglobin ABG Oxyhemoglobin ABG Chloride ABG Glucose Oxyhemoglobin Sodium Potassium Chloride Carbon Dioxide BUN Creatinine Glucose POC Glucose 150 H 134 H Lactic Acid Calcium Phosphorus Magnesium AST ALT Lactate Dehydrogenase Total Bilirubin Direct Bilirubin CK-MB (CK-2) C-Reactive Protein NT-Pro-B Natriuret Pep Total Protein Albumin Arterial Blood Glucose Urine WBC (Auto) Urine Creatinine 12/16/19 12/16/19 12/16/19 05:46 05:46 11:44 WBC RBC Hgb Hct MCHC RDW MCV MCH Lymph % (Auto) [place] % (Auto) [place] # Eos # Lymph # (Auto) [place] # (Auto) Eos # (Auto) Seg Neutrophils % Seg Neuts % (Manual) Baso # (Auto) Lymphocytes % (Manual) Monocytes % (Manual) Eosinophils % (Manual) Basophils % (Manual) Seg Neutrophils # Seg Neutrophils # Man Lymphocytes # (Manual) Monocytes # (Manual) Eosinophils # (Manual) Nucleated RBC % Basophils # (Manual) PT INR APTT Heparin Anti-Xa Level 0.20 L ABG pH POC ABG pO2 ABG pO2 ABG HCO3 ABG O2 Saturation ABG Base Excess POC ABG pCO2 ABG Hemoglobin ABG Oxyhemoglobin ABG Chloride ABG Glucose Oxyhemoglobin Sodium Potassium Chloride Carbon Dioxide 31 H BUN Creatinine 0.5 L Glucose 147 H POC Glucose 164 H Lactic Acid Calcium Phosphorus Magnesium AST ALT Lactate Dehydrogenase Total Bilirubin Direct Bilirubin CK-MB (CK-2) C-Reactive Protein NT-Pro-B Natriuret Pep Total Protein Albumin Arterial Blood Glucose Urine WBC (Auto) Urine Creatinine 12/16/19 12/16/19 12/17/19 17:17 23:49 05:30 WBC 13.9 H RBC 3.27 L Hgb 9.4 L Hct 29.2 L MCHC RDW 16.0 H MCV MCH Lymph % (Auto) [place] % (Auto) 8.8 H [place] # Eos # Lymph # (Auto) [place] # (Auto) 1.2 H Eos # (Auto) 0.5 H Seg Neutrophils % 70.5 H Seg Neuts % (Manual) Baso # (Auto) 0.2 H Lymphocytes % (Manual) Monocytes % (Manual) Eosinophils % (Manual) Basophils % (Manual) Seg Neutrophils # 9.8 H Seg Neutrophils # Man Lymphocytes # (Manual) Monocytes # (Manual) Eosinophils # (Manual) Nucleated RBC % Basophils # (Manual) PT INR APTT Heparin Anti-Xa Level ABG pH POC ABG pO2 ABG pO2 ABG HCO3 ABG O2 Saturation ABG Base Excess POC ABG pCO2 ABG Hemoglobin ABG Oxyhemoglobin ABG Chloride ABG Glucose Oxyhemoglobin Sodium Potassium Chloride Carbon Dioxide BUN Creatinine Glucose POC Glucose 162 H 144 H Lactic Acid Calcium Phosphorus Magnesium AST ALT Lactate Dehydrogenase Total Bilirubin Direct Bilirubin CK-MB (CK-2) C-Reactive Protein NT-Pro-B Natriuret Pep Total Protein Albumin Arterial Blood Glucose Urine WBC (Auto) Urine Creatinine 12/17/19 12/17/19 12/17/19 05:30 06:06 11:50 WBC RBC Hgb Hct MCHC RDW MCV MCH Lymph % (Auto) [place] % (Auto) [place] # Eos # Lymph # (Auto) [place] # (Auto) Eos # (Auto) Seg Neutrophils % Seg Neuts % (Manual) Baso # (Auto) Lymphocytes % (Manual) Monocytes % (Manual) Eosinophils % (Manual) Basophils % (Manual) Seg Neutrophils # Seg Neutrophils # Man Lymphocytes # (Manual) Monocytes # (Manual) Eosinophils # (Manual) Nucleated RBC % Basophils # (Manual) PT INR APTT Heparin Anti-Xa Level ABG pH POC ABG pO2 ABG pO2 ABG HCO3 ABG O2 Saturation ABG Base Excess POC ABG pCO2 ABG Hemoglobin ABG Oxyhemoglobin ABG Chloride ABG Glucose Oxyhemoglobin Sodium Potassium Chloride 97.4 L Carbon Dioxide 32 H BUN Creatinine 0.5 L Glucose 135 H POC Glucose 151 H 140 H Lactic Acid Calcium Phosphorus Magnesium AST ALT Lactate Dehydrogenase Total Bilirubin Direct Bilirubin CK-MB (CK-2) C-Reactive Protein NT-Pro-B Natriuret Pep Total Protein Albumin Arterial Blood Glucose Urine WBC (Auto) Urine Creatinine 12/17/19 12/17/19 12/18/19 17:50 23:46 05:17 WBC RBC Hgb 8.8 L Hct 28.0 L MCHC RDW MCV MCH Lymph % (Auto) [place] % (Auto) [place] # Eos # Lymph # (Auto) [place] # (Auto) Eos # (Auto) Seg Neutrophils % Seg Neuts % (Manual) Baso # (Auto) Lymphocytes % (Manual) Monocytes % (Manual) Eosinophils % (Manual) Basophils % (Manual) Seg Neutrophils # Seg Neutrophils # Man Lymphocytes # (Manual) Monocytes # (Manual) Eosinophils # (Manual) Nucleated RBC % Basophils # (Manual) PT INR APTT Heparin Anti-Xa Level ABG pH POC ABG pO2 ABG pO2 ABG HCO3 ABG O2 Saturation ABG Base Excess POC ABG pCO2 ABG Hemoglobin ABG Oxyhemoglobin ABG Chloride ABG Glucose Oxyhemoglobin Sodium Potassium Chloride Carbon Dioxide BUN Creatinine Glucose POC Glucose 158 H 150 H Lactic Acid Calcium Phosphorus Magnesium AST ALT Lactate Dehydrogenase Total Bilirubin Direct Bilirubin CK-MB (CK-2) C-Reactive Protein NT-Pro-B Natriuret Pep Total Protein Albumin Arterial Blood Glucose Urine WBC (Auto) Urine Creatinine 0912/18/19 12/18/19 05:17 05:49 11:12 WBC RBC Hgb Hct MCHC RDW MCV MCH Lymph % (Auto) [place] % (Auto) [place] # Eos # Lymph # (Auto) [place] # (Auto) Eos # (Auto) Seg Neutrophils % Seg Neuts % (Manual) Baso # (Auto) Lymphocytes % (Manual) Monocytes % (Manual) Eosinophils % (Manual) Basophils % (Manual) Seg Neutrophils # Seg Neutrophils # Man Lymphocytes # (Manual) Monocytes # (Manual) Eosinophils # (Manual) Nucleated RBC % Basophils # (Manual) PT INR APTT Heparin Anti-Xa Level 0.16 L ABG pH POC ABG pO2 ABG pO2 ABG HCO3 ABG O2 Saturation ABG Base Excess POC ABG pCO2 ABG Hemoglobin ABG Oxyhemoglobin ABG Chloride ABG Glucose Oxyhemoglobin Sodium Potassium Chloride Carbon Dioxide BUN Creatinine Glucose POC Glucose 127 H 191 H Lactic Acid Calcium Phosphorus Magnesium AST ALT Lactate Dehydrogenase Total Bilirubin Direct Bilirubin CK-MB (CK-2) C-Reactive Protein NT-Pro-B Natriuret Pep Total Protein Albumin Arterial Blood Glucose Urine WBC (Auto) Urine Creatinine 12/18/19 12/18/19 12/19/19 17:03 20:16 00:08 WBC RBC Hgb Hct MCHC RDW MCV MCH Lymph % (Auto) [place] % (Auto) [place] # Eos # Lymph # (Auto) [place] # (Auto) Eos # (Auto) Seg Neutrophils % Seg Neuts % (Manual) Baso # (Auto) Lymphocytes % (Manual) Monocytes % (Manual) Eosinophils % (Manual) Basophils % (Manual) Seg Neutrophils # Seg Neutrophils # Man Lymphocytes # (Manual) Monocytes # (Manual) Eosinophils # (Manual) Nucleated RBC % Basophils # (Manual) PT INR APTT Heparin Anti-Xa Level ABG pH POC ABG pO2 ABG pO2 ABG HCO3 ABG O2 Saturation ABG Base Excess POC ABG pCO2 ABG Hemoglobin ABG Oxyhemoglobin ABG Chloride ABG Glucose Oxyhemoglobin Sodium Potassium Chloride Carbon Dioxide BUN Creatinine Glucose POC Glucose 133 H 128 H 129 H Lactic Acid Calcium Phosphorus Magnesium AST ALT Lactate Dehydrogenase Total Bilirubin Direct Bilirubin CK-MB (CK-2) C-Reactive Protein NT-Pro-B Natriuret Pep Total Protein Albumin Arterial Blood Glucose Urine WBC (Auto) Urine Creatinine 12/19/19 12/19/19 12/19/19 04:45 04:45 05:35 WBC RBC Hgb Hct MCHC RDW MCV MCH Lymph % (Auto) [place] % (Auto) [place] # Eos # Lymph # (Auto) [place] # (Auto) Eos # (Auto) Seg Neutrophils % Seg Neuts % (Manual) Baso # (Auto) Lymphocytes % (Manual) Monocytes % (Manual) Eosinophils % (Manual) Basophils % (Manual) Seg Neutrophils # Seg Neutrophils # Man Lymphocytes # (Manual) Monocytes # (Manual) Eosinophils # (Manual) Nucleated RBC % Basophils # (Manual) PT INR APTT Heparin Anti-Xa Level 0.17 L ABG pH POC ABG pO2 ABG pO2 ABG HCO3 ABG O2 Saturation ABG Base Excess POC ABG pCO2 ABG Hemoglobin ABG Oxyhemoglobin ABG Chloride ABG Glucose Oxyhemoglobin Sodium Potassium Chloride Carbon Dioxide BUN Creatinine Glucose POC Glucose 120 H Lactic Acid Calcium Phosphorus Magnesium AST ALT Lactate Dehydrogenase 228 H Total Bilirubin Direct Bilirubin CK-MB (CK-2) C-Reactive Protein NT-Pro-B Natriuret Pep Total Protein Albumin Arterial Blood Glucose Urine WBC (Auto) Urine Creatinine 12/19/19 12/19/19 12/19/19 09:20 11:32 11:32 WBC 14.6 H RBC 3.08 L Hgb 9.0 L Hct 26.8 L MCHC RDW 15.9 H MCV MCH Lymph % (Auto) [place] % (Auto) [place] # Eos # Lymph # (Auto) [place] # (Auto) Eos # (Auto) Seg Neutrophils % Seg Neuts % (Manual) 82.0 H Baso # (Auto) Lymphocytes % (Manual) 10.0 L Monocytes % (Manual) Eosinophils % (Manual) Basophils % (Manual) Seg Neutrophils # Seg Neutrophils # Man 12.0 H Lymphocytes # (Manual) Monocytes # (Manual) 0.9 H Eosinophils # (Manual) Nucleated RBC % 1.0 H Basophils # (Manual) PT INR APTT Heparin Anti-Xa Level ABG pH 7.451 H POC ABG pO2 ABG pO2 62.6 L ABG HCO3 33.2 H ABG O2 Saturation 93.8 L ABG Base Excess 8.3 H POC ABG pCO2 ABG Hemoglobin 8.3 L ABG Oxyhemoglobin ABG Chloride ABG Glucose Oxyhemoglobin 91.9 L Sodium Potassium Chloride 95.0 L Carbon Dioxide 33 H BUN 22 H Creatinine 0.6 L Glucose 150 H POC Glucose Lactic Acid Calcium Phosphorus Magnesium AST ALT Lactate Dehydrogenase Total Bilirubin Direct Bilirubin CK-MB (CK-2) C-Reactive Protein NT-Pro-B Natriuret Pep Total Protein 6.2 L Albumin 2.4 L Arterial Blood Glucose Urine WBC (Auto) Urine Creatinine 12/19/19 12/19/19 12/20/19 11:56 18:17 00:09 WBC RBC Hgb Hct MCHC RDW MCV MCH Lymph % (Auto) [place] % (Auto) [place] # Eos # Lymph # (Auto) [place] # (Auto) Eos # (Auto) Seg Neutrophils % Seg Neuts % (Manual) Baso # (Auto) Lymphocytes % (Manual) Monocytes % (Manual) Eosinophils % (Manual) Basophils % (Manual) Seg Neutrophils # Seg Neutrophils # Man Lymphocytes # (Manual) Monocytes # (Manual) Eosinophils # (Manual) Nucleated RBC % Basophils # (Manual) PT INR APTT Heparin Anti-Xa Level ABG pH POC ABG pO2 ABG pO2 ABG HCO3 ABG O2 Saturation ABG Base Excess POC ABG pCO2 ABG Hemoglobin ABG Oxyhemoglobin ABG Chloride ABG Glucose Oxyhemoglobin Sodium Potassium Chloride Carbon Dioxide BUN Creatinine Glucose POC Glucose 156 H 156 H 155 H Lactic Acid Calcium Phosphorus Magnesium AST ALT Lactate Dehydrogenase Total Bilirubin Direct Bilirubin CK-MB (CK-2) C-Reactive Protein NT-Pro-B Natriuret Pep Total Protein Albumin Arterial Blood Glucose Urine WBC (Auto) Urine Creatinine 12/20/19 12/20/19 12/20/19 05:26 06:02 18:17 WBC RBC Hgb Hct MCHC RDW MCV MCH Lymph % (Auto) [place] % (Auto) [place] # Eos # Lymph # (Auto) [place] # (Auto) Eos # (Auto) Seg Neutrophils % Seg Neuts % (Manual) Baso # (Auto) Lymphocytes % (Manual) Monocytes % (Manual) Eosinophils % (Manual) Basophils % (Manual) Seg Neutrophils # Seg Neutrophils # Man Lymphocytes # (Manual) Monocytes # (Manual) Eosinophils # (Manual) Nucleated RBC % Basophils # (Manual) PT INR APTT Heparin Anti-Xa Level 0.19 L ABG pH POC ABG pO2 ABG pO2 ABG HCO3 ABG O2 Saturation ABG Base Excess POC ABG pCO2 ABG Hemoglobin ABG Oxyhemoglobin ABG Chloride ABG Glucose Oxyhemoglobin Sodium Potassium Chloride Carbon Dioxide BUN Creatinine Glucose POC Glucose 137 H 128 H Lactic Acid Calcium Phosphorus Magnesium AST ALT Lactate Dehydrogenase Total Bilirubin Direct Bilirubin CK-MB (CK-2) C-Reactive Protein NT-Pro-B Natriuret Pep Total Protein Albumin Arterial Blood Glucose Urine WBC (Auto) Urine Creatinine 12/20/19 12/21/19 12/21/19 23:34 05:31 05:31 WBC 12.7 H RBC 3.09 L Hgb 8.9 L Hct 27.4 L MCHC RDW 15.8 H MCV MCH Lymph % (Auto) 12.1 L [place] % (Auto) 7.8 H [place] # Eos # Lymph # (Auto) [place] # (Auto) 1.0 H Eos # (Auto) Seg Neutrophils % 77.1 H Seg Neuts % (Manual) Baso # (Auto) Lymphocytes % (Manual) Monocytes % (Manual) Eosinophils % (Manual) Basophils % (Manual) Seg Neutrophils # 9.8 H Seg Neutrophils # Man Lymphocytes # (Manual) Monocytes # (Manual) Eosinophils # (Manual) Nucleated RBC % Basophils # (Manual) PT INR APTT Heparin Anti-Xa Level ABG pH POC ABG pO2 ABG pO2 ABG HCO3 ABG O2 Saturation ABG Base Excess POC ABG pCO2 ABG Hemoglobin ABG Oxyhemoglobin ABG Chloride ABG Glucose Oxyhemoglobin Sodium Potassium Chloride 96.9 L Carbon Dioxide 37 H BUN 27 H Creatinine 0.7 L Glucose 140 H POC Glucose 145 H Lactic Acid Calcium Phosphorus Magnesium AST ALT Lactate Dehydrogenase Total Bilirubin Direct Bilirubin CK-MB (CK-2) C-Reactive Protein NT-Pro-B Natriuret Pep Total Protein Albumin Arterial Blood Glucose Urine WBC (Auto) Urine Creatinine 12/21/19 12/21/19 12/21/19 05:38 10:13 11:51 WBC RBC Hgb Hct MCHC RDW MCV MCH Lymph % (Auto) [place] % (Auto) [place] # Eos # Lymph # (Auto) [place] # (Auto) Eos # (Auto) Seg Neutrophils % Seg Neuts % (Manual) Baso # (Auto) Lymphocytes % (Manual) Monocytes % (Manual) Eosinophils % (Manual) Basophils % (Manual) Seg Neutrophils # Seg Neutrophils # Man Lymphocytes # (Manual) Monocytes # (Manual) Eosinophils # (Manual) Nucleated RBC % Basophils # (Manual) PT INR APTT 23.9 L Heparin Anti-Xa Level < 0.10 L ABG pH POC ABG pO2 ABG pO2 ABG HCO3 ABG O2 Saturation ABG Base Excess POC ABG pCO2 ABG Hemoglobin ABG Oxyhemoglobin ABG Chloride ABG Glucose Oxyhemoglobin Sodium Potassium Chloride Carbon Dioxide BUN Creatinine Glucose POC Glucose 151 H 145 H Lactic Acid Calcium Phosphorus Magnesium AST ALT Lactate Dehydrogenase Total Bilirubin Direct Bilirubin CK-MB (CK-2) C-Reactive Protein NT-Pro-B Natriuret Pep Total Protein Albumin Arterial Blood Glucose Urine WBC (Auto) Urine Creatinine 12/21/19 12/22/19 12/22/19 17:16 00:01 01:33 WBC RBC Hgb Hct MCHC RDW MCV MCH Lymph % (Auto) [place] % (Auto) [place] # Eos # Lymph # (Auto) [place] # (Auto) Eos # (Auto) Seg Neutrophils % Seg Neuts % (Manual) Baso # (Auto) Lymphocytes % (Manual) Monocytes % (Manual) Eosinophils % (Manual) Basophils % (Manual) Seg Neutrophils # Seg Neutrophils # Man Lymphocytes # (Manual) Monocytes # (Manual) Eosinophils # (Manual) Nucleated RBC % Basophils # (Manual) PT INR APTT Heparin Anti-Xa Level 0.10 L ABG pH POC ABG pO2 ABG pO2 ABG HCO3 ABG O2 Saturation ABG Base Excess POC ABG pCO2 ABG Hemoglobin ABG Oxyhemoglobin ABG Chloride ABG Glucose Oxyhemoglobin Sodium Potassium Chloride Carbon Dioxide BUN Creatinine Glucose POC Glucose 167 H 179 H Lactic Acid Calcium Phosphorus Magnesium AST ALT Lactate Dehydrogenase Total Bilirubin Direct Bilirubin CK-MB (CK-2) C-Reactive Protein NT-Pro-B Natriuret Pep Total Protein Albumin Arterial Blood Glucose Urine WBC (Auto) Urine Creatinine 12/22/19 12/22/19 12/22/19 03:22 05:10 05:10 WBC 13.8 H RBC 3.20 L Hgb 8.9 L Hct 28.1 L MCHC RDW 15.9 H MCV MCH Lymph % (Auto) [place] % (Auto) [place] # Eos # Lymph # (Auto) [place] # (Auto) Eos # (Auto) Seg Neutrophils % Seg Neuts % (Manual) Baso # (Auto) Lymphocytes % (Manual) Monocytes % (Manual) Eosinophils % (Manual) Basophils % (Manual) Seg Neutrophils # Seg Neutrophils # Man Lymphocytes # (Manual) Monocytes # (Manual) Eosinophils # (Manual) Nucleated RBC % Basophils # (Manual) PT INR APTT Heparin Anti-Xa Level ABG pH POC ABG pO2 52.3 L ABG pO2 ABG HCO3 ABG O2 Saturation ABG Base Excess POC ABG pCO2 52.9 H ABG Hemoglobin 10.7 L ABG Oxyhemoglobin 84 L ABG Chloride ABG Glucose Oxyhemoglobin Sodium Potassium Chloride 96.6 L Carbon Dioxide BUN 25 H Creatinine 0.7 L Glucose 129 H POC Glucose Lactic Acid Calcium Phosphorus Magnesium AST ALT Lactate Dehydrogenase Total Bilirubin Direct Bilirubin CK-MB (CK-2) C-Reactive Protein NT-Pro-B Natriuret Pep Total Protein Albumin Arterial Blood Glucose Urine WBC (Auto) Urine Creatinine 12/22/19 12/22/19 12/22/19 05:18 12:32 12:43 WBC RBC Hgb Hct MCHC RDW MCV MCH Lymph % (Auto) [place] % (Auto) [place] # Eos # Lymph # (Auto) [place] # (Auto) Eos # (Auto) Seg Neutrophils % Seg Neuts % (Manual) Baso # (Auto) Lymphocytes % (Manual) Monocytes % (Manual) Eosinophils % (Manual) Basophils % (Manual) Seg Neutrophils # Seg Neutrophils # Man Lymphocytes # (Manual) Monocytes # (Manual) Eosinophils # (Manual) Nucleated RBC % Basophils # (Manual) PT INR APTT Heparin Anti-Xa Level 0.18 L ABG pH POC ABG pO2 ABG pO2 ABG HCO3 ABG O2 Saturation ABG Base Excess POC ABG pCO2 ABG Hemoglobin ABG Oxyhemoglobin ABG Chloride ABG Glucose Oxyhemoglobin Sodium Potassium Chloride Carbon Dioxide BUN Creatinine Glucose POC Glucose 131 H 208 H Lactic Acid Calcium Phosphorus Magnesium AST ALT Lactate Dehydrogenase Total Bilirubin Direct Bilirubin CK-MB (CK-2) C-Reactive Protein NT-Pro-B Natriuret Pep Total Protein Albumin Arterial Blood Glucose Urine WBC (Auto) Urine Creatinine 12/22/19 12/22/19 12/23/19 17:44 23:20 03:51 WBC 15.2 H RBC 3.43 L Hgb 9.6 L Hct 30.3 L MCHC RDW 15.9 H MCV MCH Lymph % (Auto) [place] % (Auto) [place] # Eos # Lymph # (Auto) [place] # (Auto) Eos # (Auto) Seg Neutrophils % Seg Neuts % (Manual) Baso # (Auto) Lymphocytes % (Manual) Monocytes % (Manual) Eosinophils % (Manual) Basophils % (Manual) Seg Neutrophils # Seg Neutrophils # Man Lymphocytes # (Manual) Monocytes # (Manual) Eosinophils # (Manual) Nucleated RBC % Basophils # (Manual) PT INR APTT Heparin Anti-Xa Level ABG pH POC ABG pO2 ABG pO2 ABG HCO3 ABG O2 Saturation ABG Base Excess POC ABG pCO2 ABG Hemoglobin ABG Oxyhemoglobin ABG Chloride ABG Glucose Oxyhemoglobin Sodium Potassium Chloride Carbon Dioxide BUN Creatinine Glucose POC Glucose 209 H 119 H Lactic Acid Calcium Phosphorus Magnesium AST ALT Lactate Dehydrogenase Total Bilirubin Direct Bilirubin CK-MB (CK-2) C-Reactive Protein NT-Pro-B Natriuret Pep Total Protein Albumin Arterial Blood Glucose Urine WBC (Auto) Urine Creatinine 12/23/19 12/23/19 12/23/19 03:51 05:31 12:09 WBC RBC Hgb Hct MCHC RDW MCV MCH Lymph % (Auto) [place] % (Auto) [place] # Eos # Lymph # (Auto) [place] # (Auto) Eos # (Auto) Seg Neutrophils % Seg Neuts % (Manual) Baso # (Auto) Lymphocytes % (Manual) Monocytes % (Manual) Eosinophils % (Manual) Basophils % (Manual) Seg Neutrophils # Seg Neutrophils # Man Lymphocytes # (Manual) Monocytes # (Manual) Eosinophils # (Manual) Nucleated RBC % Basophils # (Manual) PT INR APTT Heparin Anti-Xa Level ABG pH POC ABG pO2 ABG pO2 ABG HCO3 ABG O2 Saturation ABG Base Excess POC ABG pCO2 ABG Hemoglobin ABG Oxyhemoglobin ABG Chloride ABG Glucose Oxyhemoglobin Sodium Potassium Chloride 97.2 L Carbon Dioxide 31 H BUN 23 H Creatinine 0.6 L Glucose 153 H POC Glucose 149 H 144 H Lactic Acid Calcium Phosphorus Magnesium AST ALT Lactate Dehydrogenase Total Bilirubin Direct Bilirubin CK-MB (CK-2) C-Reactive Protein NT-Pro-B Natriuret Pep Total Protein Albumin Arterial Blood Glucose Urine WBC (Auto) Urine Creatinine 12/23/19 12/23/19 12/23/19 15:30 17:49 23:31 WBC RBC Hgb Hct MCHC RDW MCV MCH Lymph % (Auto) [place] % (Auto) [place] # Eos # Lymph # (Auto) [place] # (Auto) Eos # (Auto) Seg Neutrophils % Seg Neuts % (Manual) Baso # (Auto) Lymphocytes % (Manual) Monocytes % (Manual) Eosinophils % (Manual) Basophils % (Manual) Seg Neutrophils # Seg Neutrophils # Man Lymphocytes # (Manual) Monocytes # (Manual) Eosinophils # (Manual) Nucleated RBC % Basophils # (Manual) PT INR APTT Heparin Anti-Xa Level 0.21 L ABG pH POC ABG pO2 ABG pO2 ABG HCO3 ABG O2 Saturation ABG Base Excess POC ABG pCO2 ABG Hemoglobin ABG Oxyhemoglobin ABG Chloride ABG Glucose Oxyhemoglobin Sodium Potassium Chloride Carbon Dioxide BUN Creatinine Glucose POC Glucose 192 H 151 H Lactic Acid Calcium Phosphorus Magnesium AST ALT Lactate Dehydrogenase Total Bilirubin Direct Bilirubin CK-MB (CK-2) C-Reactive Protein NT-Pro-B Natriuret Pep Total Protein Albumin Arterial Blood Glucose Urine WBC (Auto) Urine Creatinine 12/24/19 12/24/19 12/24/19 05:34 12:13 16:50 WBC RBC Hgb Hct MCHC RDW MCV MCH Lymph % (Auto) [place] % (Auto) [place] # Eos # Lymph # (Auto) [place] # (Auto) Eos # (Auto) Seg Neutrophils % Seg Neuts % (Manual) Baso # (Auto) Lymphocytes % (Manual) Monocytes % (Manual) Eosinophils % (Manual) Basophils % (Manual) Seg Neutrophils # Seg Neutrophils # Man Lymphocytes # (Manual) Monocytes # (Manual) Eosinophils # (Manual) Nucleated RBC % Basophils # (Manual) PT INR APTT Heparin Anti-Xa Level 0.16 L ABG pH POC ABG pO2 ABG pO2 ABG HCO3 ABG O2 Saturation ABG Base Excess POC ABG pCO2 ABG Hemoglobin ABG Oxyhemoglobin ABG Chloride ABG Glucose Oxyhemoglobin Sodium Potassium Chloride Carbon Dioxide BUN Creatinine Glucose POC Glucose 145 H 124 H Lactic Acid Calcium Phosphorus Magnesium AST ALT Lactate Dehydrogenase Total Bilirubin Direct Bilirubin CK-MB (CK-2) C-Reactive Protein NT-Pro-B Natriuret Pep Total Protein Albumin Arterial Blood Glucose Urine WBC (Auto) Urine Creatinine 12/24/19 12/25/19 12/25/19 17:53 00:14 04:18 WBC 12.9 H RBC 3.30 L Hgb 9.1 L Hct 28.8 L MCHC RDW 16.4 H MCV MCH Lymph % (Auto) [place] % (Auto) 7.8 H [place] # Eos # Lymph # (Auto) [place] # (Auto) 1.0 H Eos # (Auto) Seg Neutrophils % 75.5 H Seg Neuts % (Manual) Baso # (Auto) Lymphocytes % (Manual) Monocytes % (Manual) Eosinophils % (Manual) Basophils % (Manual) Seg Neutrophils # 9.7 H Seg Neutrophils # Man Lymphocytes # (Manual) Monocytes # (Manual) Eosinophils # (Manual) Nucleated RBC % Basophils # (Manual) PT INR APTT Heparin Anti-Xa Level ABG pH POC ABG pO2 ABG pO2 ABG HCO3 ABG O2 Saturation ABG Base Excess POC ABG pCO2 ABG Hemoglobin ABG Oxyhemoglobin ABG Chloride ABG Glucose Oxyhemoglobin Sodium Potassium Chloride Carbon Dioxide BUN Creatinine Glucose POC Glucose 164 H 148 H Lactic Acid Calcium Phosphorus Magnesium AST ALT Lactate Dehydrogenase Total Bilirubin Direct Bilirubin CK-MB (CK-2) C-Reactive Protein NT-Pro-B Natriuret Pep Total Protein Albumin Arterial Blood Glucose Urine WBC (Auto) Urine Creatinine 12/25/19 12/25/19 12/25/19 04:18 05:38 11:44 WBC RBC Hgb Hct MCHC RDW MCV MCH Lymph % (Auto) [place] % (Auto) [place] # Eos # Lymph # (Auto) [place] # (Auto) Eos # (Auto) Seg Neutrophils % Seg Neuts % (Manual) Baso # (Auto) Lymphocytes % (Manual) Monocytes % (Manual) Eosinophils % (Manual) Basophils % (Manual) Seg Neutrophils # Seg Neutrophils # Man Lymphocytes # (Manual) Monocytes # (Manual) Eosinophils # (Manual) Nucleated RBC % Basophils # (Manual) PT INR APTT Heparin Anti-Xa Level ABG pH POC ABG pO2 ABG pO2 ABG HCO3 ABG O2 Saturation ABG Base Excess POC ABG pCO2 ABG Hemoglobin ABG Oxyhemoglobin ABG Chloride ABG Glucose Oxyhemoglobin Sodium Potassium Chloride Carbon Dioxide 33 H BUN 27 H Creatinine 0.6 L Glucose 132 H POC Glucose 152 H 166 H Lactic Acid Calcium Phosphorus Magnesium AST ALT Lactate Dehydrogenase Total Bilirubin Direct Bilirubin CK-MB (CK-2) C-Reactive Protein NT-Pro-B Natriuret Pep Total Protein Albumin Arterial Blood Glucose Urine WBC (Auto) Urine Creatinine 12/25/19 12/26/19 12/26/19 18:29 00:17 00:18 WBC RBC Hgb Hct MCHC RDW MCV MCH Lymph % (Auto) [place] % (Auto) [place] # Eos # Lymph # (Auto) [place] # (Auto) Eos # (Auto) Seg Neutrophils % Seg Neuts % (Manual) Baso # (Auto) Lymphocytes % (Manual) Monocytes % (Manual) Eosinophils % (Manual) Basophils % (Manual) Seg Neutrophils # Seg Neutrophils # Man Lymphocytes # (Manual) Monocytes # (Manual) Eosinophils # (Manual) Nucleated RBC % Basophils # (Manual) PT INR APTT Heparin Anti-Xa Level ABG pH POC ABG pO2 ABG pO2 ABG HCO3 ABG O2 Saturation ABG Base Excess POC ABG pCO2 ABG Hemoglobin ABG Oxyhemoglobin ABG Chloride ABG Glucose Oxyhemoglobin Sodium Potassium Chloride 97.8 L Carbon Dioxide BUN 25 H Creatinine 0.6 L Glucose 140 H POC Glucose 194 H 151 H Lactic Acid Calcium Phosphorus Magnesium AST ALT Lactate Dehydrogenase Total Bilirubin Direct Bilirubin CK-MB (CK-2) C-Reactive Protein NT-Pro-B Natriuret Pep Total Protein Albumin Arterial Blood Glucose Urine WBC (Auto) Urine Creatinine 12/26/19 12/26/19 12/26/19 05:36 11:41 17:50 WBC RBC Hgb Hct MCHC RDW MCV MCH Lymph % (Auto) [place] % (Auto) [place] # Eos # Lymph # (Auto) [place] # (Auto) Eos # (Auto) Seg Neutrophils % Seg Neuts % (Manual) Baso # (Auto) Lymphocytes % (Manual) Monocytes % (Manual) Eosinophils % (Manual) Basophils % (Manual) Seg Neutrophils # Seg Neutrophils # Man Lymphocytes # (Manual) Monocytes # (Manual) Eosinophils # (Manual) Nucleated RBC % Basophils # (Manual) PT INR APTT Heparin Anti-Xa Level ABG pH POC ABG pO2 ABG pO2 ABG HCO3 ABG O2 Saturation ABG Base Excess POC ABG pCO2 ABG Hemoglobin ABG Oxyhemoglobin ABG Chloride ABG Glucose Oxyhemoglobin Sodium Potassium Chloride Carbon Dioxide BUN Creatinine Glucose POC Glucose 156 H 148 H 139 H Lactic Acid Calcium Phosphorus Magnesium AST ALT Lactate Dehydrogenase Total Bilirubin Direct Bilirubin CK-MB (CK-2) C-Reactive Protein NT-Pro-B Natriuret Pep Total Protein Albumin Arterial Blood Glucose Urine WBC (Auto) Urine Creatinine 12/26/19 12/27/19 12/27/19 23:19 05:34 12:02 WBC RBC Hgb Hct MCHC RDW MCV MCH Lymph % (Auto) [place] % (Auto) [place] # Eos # Lymph # (Auto) [place] # (Auto) Eos # (Auto) Seg Neutrophils % Seg Neuts % (Manual) Baso # (Auto) Lymphocytes % (Manual) Monocytes % (Manual) Eosinophils % (Manual) Basophils % (Manual) Seg Neutrophils # Seg Neutrophils # Man Lymphocytes # (Manual) Monocytes # (Manual) Eosinophils # (Manual) Nucleated RBC % Basophils # (Manual) PT INR APTT Heparin Anti-Xa Level ABG pH POC ABG pO2 ABG pO2 ABG HCO3 ABG O2 Saturation ABG Base Excess POC ABG pCO2 ABG Hemoglobin ABG Oxyhemoglobin ABG Chloride ABG Glucose Oxyhemoglobin Sodium Potassium Chloride Carbon Dioxide BUN Creatinine Glucose POC Glucose 161 H 145 H 157 H Lactic Acid Calcium Phosphorus Magnesium AST ALT Lactate Dehydrogenase Total Bilirubin Direct Bilirubin CK-MB (CK-2) C-Reactive Protein NT-Pro-B Natriuret Pep Total Protein Albumin Arterial Blood Glucose Urine WBC (Auto) Urine Creatinine 12/27/19 12/27/19 12/27/19 17:35 20:11 23:00 WBC RBC Hgb Hct MCHC RDW MCV MCH Lymph % (Auto) [place] % (Auto) [place] # Eos # Lymph # (Auto) [place] # (Auto) Eos # (Auto) Seg Neutrophils % Seg Neuts % (Manual) Baso # (Auto) Lymphocytes % (Manual) Monocytes % (Manual) Eosinophils % (Manual) Basophils % (Manual) Seg Neutrophils # Seg Neutrophils # Man Lymphocytes # (Manual) Monocytes # (Manual) Eosinophils # (Manual) Nucleated RBC % Basophils # (Manual) PT INR APTT Heparin Anti-Xa Level 0.19 L ABG pH POC ABG pO2 ABG pO2 ABG HCO3 ABG O2 Saturation ABG Base Excess POC ABG pCO2 ABG Hemoglobin ABG Oxyhemoglobin ABG Chloride ABG Glucose Oxyhemoglobin Sodium Potassium Chloride Carbon Dioxide BUN Creatinine Glucose POC Glucose 158 H 155 H Lactic Acid Calcium Phosphorus Magnesium AST ALT Lactate Dehydrogenase Total Bilirubin Direct Bilirubin CK-MB (CK-2) C-Reactive Protein NT-Pro-B Natriuret Pep Total Protein Albumin Arterial Blood Glucose Urine WBC (Auto) Urine Creatinine 12/27/19 12/28/19 12/28/19 23:45 02:41 02:41 WBC 13.0 H RBC 3.48 L Hgb 9.5 L Hct 30.6 L MCHC 31 L RDW 16.6 H MCV MCH 27 L Lymph % (Auto) 13.0 L [place] % (Auto) 8.0 H [place] # Eos # Lymph # (Auto) [place] # (Auto) 1.0 H Eos # (Auto) Seg Neutrophils % 76.3 H Seg Neuts % (Manual) Baso # (Auto) Lymphocytes % (Manual) Monocytes % (Manual) Eosinophils % (Manual) Basophils % (Manual) Seg Neutrophils # 9.9 H Seg Neutrophils # Man Lymphocytes # (Manual) Monocytes # (Manual) Eosinophils # (Manual) Nucleated RBC % Basophils # (Manual) PT INR APTT Heparin Anti-Xa Level ABG pH POC ABG pO2 ABG pO2 ABG HCO3 ABG O2 Saturation ABG Base Excess POC ABG pCO2 ABG Hemoglobin ABG Oxyhemoglobin ABG Chloride ABG Glucose Oxyhemoglobin Sodium Potassium Chloride Carbon Dioxide BUN 22 H Creatinine 0.6 L Glucose 101 H POC Glucose 130 H Lactic Acid Calcium Phosphorus Magnesium AST ALT Lactate Dehydrogenase Total Bilirubin Direct Bilirubin CK-MB (CK-2) C-Reactive Protein NT-Pro-B Natriuret Pep Total Protein Albumin Arterial Blood Glucose Urine WBC (Auto) Urine Creatinine 12/28/19 12/28/19 12/28/19 06:00 12:34 18:13 WBC RBC Hgb Hct MCHC RDW MCV MCH Lymph % (Auto) [place] % (Auto) [place] # Eos # Lymph # (Auto) [place] # (Auto) Eos # (Auto) Seg Neutrophils % Seg Neuts % (Manual) Baso # (Auto) Lymphocytes % (Manual) Monocytes % (Manual) Eosinophils % (Manual) Basophils % (Manual) Seg Neutrophils # Seg Neutrophils # Man Lymphocytes # (Manual) Monocytes # (Manual) Eosinophils # (Manual) Nucleated RBC % Basophils # (Manual) PT INR APTT Heparin Anti-Xa Level ABG pH POC ABG pO2 ABG pO2 ABG HCO3 ABG O2 Saturation ABG Base Excess POC ABG pCO2 ABG Hemoglobin ABG Oxyhemoglobin ABG Chloride ABG Glucose Oxyhemoglobin Sodium Potassium Chloride Carbon Dioxide BUN Creatinine Glucose POC Glucose 150 H 161 H 128 H Lactic Acid Calcium Phosphorus Magnesium AST ALT Lactate Dehydrogenase Total Bilirubin Direct Bilirubin CK-MB (CK-2) C-Reactive Protein NT-Pro-B Natriuret Pep Total Protein Albumin Arterial Blood Glucose Urine WBC (Auto) Urine Creatinine 12/28/19 12/29/19 12/29/19 23:36 05:21 11:40 WBC RBC Hgb Hct MCHC RDW MCV MCH Lymph % (Auto) [place] % (Auto) [place] # Eos # Lymph # (Auto) [place] # (Auto) Eos # (Auto) Seg Neutrophils % Seg Neuts % (Manual) Baso # (Auto) Lymphocytes % (Manual) Monocytes % (Manual) Eosinophils % (Manual) Basophils % (Manual) Seg Neutrophils # Seg Neutrophils # Man Lymphocytes # (Manual) Monocytes # (Manual) Eosinophils # (Manual) Nucleated RBC % Basophils # (Manual) PT INR APTT Heparin Anti-Xa Level ABG pH POC ABG pO2 ABG pO2 ABG HCO3 ABG O2 Saturation ABG Base Excess POC ABG pCO2 ABG Hemoglobin ABG Oxyhemoglobin ABG Chloride ABG Glucose Oxyhemoglobin Sodium Potassium Chloride Carbon Dioxide BUN Creatinine Glucose POC Glucose 137 H 136 H 166 H Lactic Acid Calcium Phosphorus Magnesium AST ALT Lactate Dehydrogenase Total Bilirubin Direct Bilirubin CK-MB (CK-2) C-Reactive Protein NT-Pro-B Natriuret Pep Total Protein Albumin Arterial Blood Glucose Urine WBC (Auto) Urine Creatinine 12/29/19 12/29/19 12/29/19 17:23 19:21 23:38 WBC RBC Hgb Hct MCHC RDW MCV MCH Lymph % (Auto) [place] % (Auto) [place] # Eos # Lymph # (Auto) [place] # (Auto) Eos # (Auto) Seg Neutrophils % Seg Neuts % (Manual) Baso # (Auto) Lymphocytes % (Manual) Monocytes % (Manual) Eosinophils % (Manual) Basophils % (Manual) Seg Neutrophils # Seg Neutrophils # Man Lymphocytes # (Manual) Monocytes # (Manual) Eosinophils # (Manual) Nucleated RBC % Basophils # (Manual) PT INR APTT Heparin Anti-Xa Level 0.20 L ABG pH POC ABG pO2 ABG pO2 ABG HCO3 ABG O2 Saturation ABG Base Excess POC ABG pCO2 ABG Hemoglobin ABG Oxyhemoglobin ABG Chloride ABG Glucose Oxyhemoglobin Sodium Potassium Chloride Carbon Dioxide BUN Creatinine Glucose POC Glucose 144 H 141 H Lactic Acid Calcium Phosphorus Magnesium AST ALT Lactate Dehydrogenase Total Bilirubin Direct Bilirubin CK-MB (CK-2) C-Reactive Protein NT-Pro-B Natriuret Pep Total Protein Albumin Arterial Blood Glucose Urine WBC (Auto) Urine Creatinine 12/30/19 12/30/19 12/30/19 03:58 03:58 04:59 WBC RBC 3.54 L Hgb 9.8 L Hct 30.7 L MCHC RDW 16.8 H MCV MCH Lymph % (Auto) [place] % (Auto) [place] # Eos # Lymph # (Auto) [place] # (Auto) Eos # (Auto) Seg Neutrophils % Seg Neuts % (Manual) Baso # (Auto) Lymphocytes % (Manual) Monocytes % (Manual) Eosinophils % (Manual) Basophils % (Manual) Seg Neutrophils # Seg Neutrophils # Man Lymphocytes # (Manual) Monocytes # (Manual) Eosinophils # (Manual) Nucleated RBC % Basophils # (Manual) PT INR APTT Heparin Anti-Xa Level ABG pH POC ABG pO2 ABG pO2 ABG HCO3 29.8 H ABG O2 Saturation ABG Base Excess 4.8 H POC ABG pCO2 ABG Hemoglobin 11.2 L ABG Oxyhemoglobin ABG Chloride ABG Glucose Oxyhemoglobin 93.8 L Sodium Potassium Chloride 97.8 L Carbon Dioxide BUN 26 H Creatinine Glucose 168 H POC Glucose Lactic Acid Calcium Phosphorus Magnesium AST ALT Lactate Dehydrogenase Total Bilirubin Direct Bilirubin CK-MB (CK-2) C-Reactive Protein NT-Pro-B Natriuret Pep Total Protein Albumin Arterial Blood Glucose Urine WBC (Auto) Urine Creatinine 12/30/19 12/30/19 12/30/19 05:45 11:34 17:28 WBC RBC Hgb Hct MCHC RDW MCV MCH Lymph % (Auto) [place] % (Auto) [place] # Eos # Lymph # (Auto) [place] # (Auto) Eos # (Auto) Seg Neutrophils % Seg Neuts % (Manual) Baso # (Auto) Lymphocytes % (Manual) Monocytes % (Manual) Eosinophils % (Manual) Basophils % (Manual) Seg Neutrophils # Seg Neutrophils # Man Lymphocytes # (Manual) Monocytes # (Manual) Eosinophils # (Manual) Nucleated RBC % Basophils # (Manual) PT INR APTT Heparin Anti-Xa Level ABG pH POC ABG pO2 ABG pO2 ABG HCO3 ABG O2 Saturation ABG Base Excess POC ABG pCO2 ABG Hemoglobin ABG Oxyhemoglobin ABG Chloride ABG Glucose Oxyhemoglobin Sodium Potassium Chloride Carbon Dioxide BUN Creatinine Glucose POC Glucose 163 H 180 H 150 H Lactic Acid Calcium Phosphorus Magnesium AST ALT Lactate Dehydrogenase Total Bilirubin Direct Bilirubin CK-MB (CK-2) C-Reactive Protein NT-Pro-B Natriuret Pep Total Protein Albumin Arterial Blood Glucose Urine WBC (Auto) Urine Creatinine 12/30/19 12/31/19 12/31/19 23:43 04:55 05:07 WBC RBC Hgb Hct MCHC RDW MCV MCH Lymph % (Auto) [place] % (Auto) [place] # Eos # Lymph # (Auto) [place] # (Auto) Eos # (Auto) Seg Neutrophils % Seg Neuts % (Manual) Baso # (Auto) Lymphocytes % (Manual) Monocytes % (Manual) Eosinophils % (Manual) Basophils % (Manual) Seg Neutrophils # Seg Neutrophils # Man Lymphocytes # (Manual) Monocytes # (Manual) Eosinophils # (Manual) Nucleated RBC % Basophils # (Manual) PT INR APTT Heparin Anti-Xa Level ABG pH POC ABG pO2 ABG pO2 ABG HCO3 ABG O2 Saturation ABG Base Excess POC ABG pCO2 ABG Hemoglobin ABG Oxyhemoglobin ABG Chloride ABG Glucose Oxyhemoglobin Sodium Potassium 5.6 H D Chloride Carbon Dioxide BUN 33 H Creatinine Glucose 131 H POC Glucose 142 H 134 H Lactic Acid Calcium Phosphorus Magnesium AST ALT Lactate Dehydrogenase Total Bilirubin Direct Bilirubin CK-MB (CK-2) C-Reactive Protein NT-Pro-B Natriuret Pep Total Protein Albumin Arterial Blood Glucose Urine WBC (Auto) Urine Creatinine 12/31/19 12/31/19 12/31/19 11:30 17:19 17:36 WBC RBC Hgb Hct MCHC RDW MCV MCH Lymph % (Auto) [place] % (Auto) [place] # Eos # Lymph # (Auto) [place] # (Auto) Eos # (Auto) Seg Neutrophils % Seg Neuts % (Manual) Baso # (Auto) Lymphocytes % (Manual) Monocytes % (Manual) Eosinophils % (Manual) Basophils % (Manual) Seg Neutrophils # Seg Neutrophils # Man Lymphocytes # (Manual) Monocytes # (Manual) Eosinophils # (Manual) Nucleated RBC % Basophils # (Manual) PT INR APTT Heparin Anti-Xa Level ABG pH POC ABG pO2 ABG pO2 ABG HCO3 ABG O2 Saturation ABG Base Excess POC ABG pCO2 ABG Hemoglobin ABG Oxyhemoglobin ABG Chloride ABG Glucose Oxyhemoglobin Sodium Potassium Chloride Carbon Dioxide BUN 35 H Creatinine Glucose 156 H POC Glucose 158 H 181 H Lactic Acid Calcium Phosphorus Magnesium AST ALT Lactate Dehydrogenase Total Bilirubin Direct Bilirubin CK-MB (CK-2) C-Reactive Protein NT-Pro-B Natriuret Pep Total Protein Albumin Arterial Blood Glucose Urine WBC (Auto) Urine Creatinine 12/31/19 12/31/19 12/31/19 18:16 19:41 21:53 WBC RBC Hgb Hct MCHC RDW MCV MCH Lymph % (Auto) [place] % (Auto) [place] # Eos # Lymph # (Auto) [place] # (Auto) Eos # (Auto) Seg Neutrophils % Seg Neuts % (Manual) Baso # (Auto) Lymphocytes % (Manual) Monocytes % (Manual) Eosinophils % (Manual) Basophils % (Manual) Seg Neutrophils # Seg Neutrophils # Man Lymphocytes # (Manual) Monocytes # (Manual) Eosinophils # (Manual) Nucleated RBC % Basophils # (Manual) PT INR APTT Heparin Anti-Xa Level 0.20 L ABG pH POC ABG pO2 ABG pO2 ABG HCO3 ABG O2 Saturation ABG Base Excess POC ABG pCO2 ABG Hemoglobin ABG Oxyhemoglobin ABG Chloride ABG Glucose Oxyhemoglobin Sodium Potassium Chloride Carbon Dioxide BUN 34 H Creatinine Glucose 169 H POC Glucose 141 H Lactic Acid Calcium Phosphorus Magnesium AST ALT Lactate Dehydrogenase Total Bilirubin Direct Bilirubin CK-MB (CK-2) C-Reactive Protein NT-Pro-B Natriuret Pep Total Protein Albumin Arterial Blood Glucose Urine WBC (Auto) Urine Creatinine 12/31/19 01/01/20 01/01/20 23:51 05:17 10:40 WBC RBC Hgb Hct MCHC RDW MCV MCH Lymph % (Auto) [place] % (Auto) [place] # Eos # Lymph # (Auto) [place] # (Auto) Eos # (Auto) Seg Neutrophils % Seg Neuts % (Manual) Baso # (Auto) Lymphocytes % (Manual) Monocytes % (Manual) Eosinophils % (Manual) Basophils % (Manual) Seg Neutrophils # Seg Neutrophils # Man Lymphocytes # (Manual) Monocytes # (Manual) Eosinophils # (Manual) Nucleated RBC % Basophils # (Manual) PT INR APTT Heparin Anti-Xa Level ABG pH POC ABG pO2 ABG pO2 ABG HCO3 ABG O2 Saturation ABG Base Excess POC ABG pCO2 ABG Hemoglobin ABG Oxyhemoglobin ABG Chloride ABG Glucose Oxyhemoglobin Sodium Potassium Chloride Carbon Dioxide BUN 31 H Creatinine 0.7 L Glucose 137 H POC Glucose 131 H 155 H Lactic Acid Calcium Phosphorus Magnesium AST 73 H ALT 97 H Lactate Dehydrogenase Total Bilirubin Direct Bilirubin CK-MB (CK-2) C-Reactive Protein NT-Pro-B Natriuret Pep 3866 H Total Protein Albumin 2.8 L Arterial Blood Glucose Urine WBC (Auto) Urine Creatinine 01/01/20 01/01/20 01/01/20 12:26 15:33 17:53 WBC 14.3 H RBC 3.35 L Hgb 9.1 L Hct 28.8 L MCHC RDW 17.0 H MCV MCH 27 L Lymph % (Auto) 7.0 L [place] % (Auto) 7.6 H [place] # Eos # Lymph # (Auto) 1.0 L [place] # (Auto) 1.1 H Eos # (Auto) Seg Neutrophils % 83.3 H Seg Neuts % (Manual) Baso # (Auto) Lymphocytes % (Manual) Monocytes % (Manual) Eosinophils % (Manual) Basophils % (Manual) Seg Neutrophils # 12.0 H Seg Neutrophils # Man Lymphocytes # (Manual) Monocytes # (Manual) Eosinophils # (Manual) Nucleated RBC % Basophils # (Manual) PT INR APTT Heparin Anti-Xa Level ABG pH POC ABG pO2 ABG pO2 ABG HCO3 ABG O2 Saturation ABG Base Excess POC ABG pCO2 ABG Hemoglobin ABG Oxyhemoglobin ABG Chloride ABG Glucose Oxyhemoglobin Sodium Potassium Chloride Carbon Dioxide BUN Creatinine Glucose POC Glucose 128 H 128 H Lactic Acid Calcium Phosphorus Magnesium AST ALT Lactate Dehydrogenase Total Bilirubin Direct Bilirubin CK-MB (CK-2) C-Reactive Protein NT-Pro-B Natriuret Pep Total Protein Albumin Arterial Blood Glucose Urine WBC (Auto) Urine Creatinine 01/01/20 01/02/20 01/02/20 23:04 05:39 07:00 WBC RBC Hgb Hct MCHC RDW MCV MCH Lymph % (Auto) [place] % (Auto) [place] # Eos # Lymph # (Auto) [place] # (Auto) Eos # (Auto) Seg Neutrophils % Seg Neuts % (Manual) Baso # (Auto) Lymphocytes % (Manual) Monocytes % (Manual) Eosinophils % (Manual) Basophils % (Manual) Seg Neutrophils # Seg Neutrophils # Man Lymphocytes # (Manual) Monocytes # (Manual) Eosinophils # (Manual) Nucleated RBC % Basophils # (Manual) PT INR APTT Heparin Anti-Xa Level 0.13 L ABG pH POC ABG pO2 ABG pO2 ABG HCO3 ABG O2 Saturation ABG Base Excess POC ABG pCO2 ABG Hemoglobin ABG Oxyhemoglobin ABG Chloride ABG Glucose Oxyhemoglobin Sodium Potassium Chloride Carbon Dioxide BUN Creatinine Glucose POC Glucose 120 H 169 H Lactic Acid Calcium Phosphorus Magnesium AST ALT Lactate Dehydrogenase Total Bilirubin Direct Bilirubin CK-MB (CK-2) C-Reactive Protein NT-Pro-B Natriuret Pep Total Protein Albumin Arterial Blood Glucose Urine WBC (Auto) Urine Creatinine 01/02/20 01/02/20 01/02/20 12:15 14:06 17:58 WBC RBC Hgb Hct MCHC RDW MCV MCH Lymph % (Auto) [place] % (Auto) [place] # Eos # Lymph # (Auto) [place] # (Auto) Eos # (Auto) Seg Neutrophils % Seg Neuts % (Manual) Baso # (Auto) Lymphocytes % (Manual) Monocytes % (Manual) Eosinophils % (Manual) Basophils % (Manual) Seg Neutrophils # Seg Neutrophils # Man Lymphocytes # (Manual) Monocytes # (Manual) Eosinophils # (Manual) Nucleated RBC % Basophils # (Manual) PT INR APTT Heparin Anti-Xa Level < 0.10 L ABG pH POC ABG pO2 ABG pO2 ABG HCO3 ABG O2 Saturation ABG Base Excess POC ABG pCO2 ABG Hemoglobin ABG Oxyhemoglobin ABG Chloride ABG Glucose Oxyhemoglobin Sodium Potassium Chloride Carbon Dioxide BUN Creatinine Glucose POC Glucose 190 H 198 H Lactic Acid Calcium Phosphorus Magnesium AST ALT Lactate Dehydrogenase Total Bilirubin Direct Bilirubin CK-MB (CK-2) C-Reactive Protein NT-Pro-B Natriuret Pep Total Protein Albumin Arterial Blood Glucose Urine WBC (Auto) Urine Creatinine 01/02/20 01/02/20 01/03/20 21:43 23:33 05:42 WBC RBC Hgb Hct MCHC RDW MCV MCH Lymph % (Auto) [place] % (Auto) [place] # Eos # Lymph # (Auto) [place] # (Auto) Eos # (Auto) Seg Neutrophils % Seg Neuts % (Manual) Baso # (Auto) Lymphocytes % (Manual) Monocytes % (Manual) Eosinophils % (Manual) Basophils % (Manual) Seg Neutrophils # Seg Neutrophils # Man Lymphocytes # (Manual) Monocytes # (Manual) Eosinophils # (Manual) Nucleated RBC % Basophils # (Manual) PT INR APTT Heparin Anti-Xa Level 0.10 L ABG pH POC ABG pO2 ABG pO2 ABG HCO3 ABG O2 Saturation ABG Base Excess POC ABG pCO2 ABG Hemoglobin ABG Oxyhemoglobin ABG Chloride ABG Glucose Oxyhemoglobin Sodium Potassium Chloride Carbon Dioxide BUN Creatinine Glucose POC Glucose 180 H 163 H Lactic Acid Calcium Phosphorus Magnesium AST ALT Lactate Dehydrogenase Total Bilirubin Direct Bilirubin CK-MB (CK-2) C-Reactive Protein NT-Pro-B Natriuret Pep Total Protein Albumin Arterial Blood Glucose Urine WBC (Auto) Urine Creatinine 01/03/20 01/03/20 01/03/20 06:50 07:25 07:45 WBC 12.1 H RBC 3.35 L Hgb 9.0 L Hct 28.9 L MCHC 31 L RDW 16.6 H MCV MCH 27 L Lymph % (Auto) 13.0 L [place] % (Auto) 8.6 H [place] # Eos # Lymph # (Auto) [place] # (Auto) 1.0 H Eos # (Auto) Seg Neutrophils % 75.9 H Seg Neuts % (Manual) Baso # (Auto) Lymphocytes % (Manual) Monocytes % (Manual) Eosinophils % (Manual) Basophils % (Manual) Seg Neutrophils # 9.2 H Seg Neutrophils # Man Lymphocytes # (Manual) Monocytes # (Manual) Eosinophils # (Manual) Nucleated RBC % Basophils # (Manual) PT INR APTT Heparin Anti-Xa Level 0.29 L ABG pH POC ABG pO2 ABG pO2 ABG HCO3 ABG O2 Saturation ABG Base Excess POC ABG pCO2 ABG Hemoglobin ABG Oxyhemoglobin ABG Chloride ABG Glucose Oxyhemoglobin Sodium Potassium 3.3 L D Chloride Carbon Dioxide 35 H D BUN 23 H Creatinine 0.6 L Glucose 149 H POC Glucose Lactic Acid Calcium Phosphorus Magnesium AST ALT 88 H Lactate Dehydrogenase Total Bilirubin Direct Bilirubin CK-MB (CK-2) C-Reactive Protein NT-Pro-B Natriuret Pep Total Protein 6.2 L Albumin 2.9 L Arterial Blood Glucose Urine WBC (Auto) Urine Creatinine 01/03/20 01/03/20 01/03/20 12:05 17:42 18:30 WBC RBC Hgb Hct MCHC RDW MCV MCH Lymph % (Auto) [place] % (Auto) [place] # Eos # Lymph # (Auto) [place] # (Auto) Eos # (Auto) Seg Neutrophils % Seg Neuts % (Manual) Baso # (Auto) Lymphocytes % (Manual) Monocytes % (Manual) Eosinophils % (Manual) Basophils % (Manual) Seg Neutrophils # Seg Neutrophils # Man Lymphocytes # (Manual) Monocytes # (Manual) Eosinophils # (Manual) Nucleated RBC % Basophils # (Manual) PT INR APTT Heparin Anti-Xa Level ABG pH POC ABG pO2 ABG pO2 70.7 L ABG HCO3 36.1 H ABG O2 Saturation 94.4 L ABG Base Excess 10.0 H POC ABG pCO2 ABG Hemoglobin 9.7 L ABG Oxyhemoglobin ABG Chloride ABG Glucose Oxyhemoglobin 91.8 L Sodium Potassium Chloride Carbon Dioxide BUN Creatinine Glucose POC Glucose 128 H 132 H Lactic Acid Calcium Phosphorus Magnesium AST ALT Lactate Dehydrogenase Total Bilirubin Direct Bilirubin CK-MB (CK-2) C-Reactive Protein NT-Pro-B Natriuret Pep Total Protein Albumin Arterial Blood Glucose Urine WBC (Auto) Urine Creatinine 01/04/20 01/04/20 01/04/20 00:10 04:26 05:23 WBC RBC Hgb Hct MCHC RDW MCV MCH Lymph % (Auto) [place] % (Auto) [place] # Eos # Lymph # (Auto) [place] # (Auto) Eos # (Auto) Seg Neutrophils % Seg Neuts % (Manual) Baso # (Auto) Lymphocytes % (Manual) Monocytes % (Manual) Eosinophils % (Manual) Basophils % (Manual) Seg Neutrophils # Seg Neutrophils # Man Lymphocytes # (Manual) Monocytes # (Manual) Eosinophils # (Manual) Nucleated RBC % Basophils # (Manual) PT INR APTT Heparin Anti-Xa Level 0.16 L ABG pH POC ABG pO2 ABG pO2 ABG HCO3 ABG O2 Saturation ABG Base Excess POC ABG pCO2 ABG Hemoglobin ABG Oxyhemoglobin ABG Chloride ABG Glucose Oxyhemoglobin Sodium Potassium Chloride Carbon Dioxide BUN Creatinine Glucose POC Glucose 121 H 119 H Lactic Acid Calcium Phosphorus Magnesium AST ALT Lactate Dehydrogenase Total Bilirubin Direct Bilirubin CK-MB (CK-2) C-Reactive Protein NT-Pro-B Natriuret Pep Total Protein Albumin Arterial Blood Glucose Urine WBC (Auto) Urine Creatinine 01/04/20 01/04/20 01/04/20 09:50 09:50 12:18 WBC 15.4 H RBC 3.30 L Hgb 8.7 L Hct 28.2 L MCHC 31 L RDW 17.0 H MCV MCH 26 L Lymph % (Auto) [place] % (Auto) 7.6 H [place] # Eos # Lymph # (Auto) [place] # (Auto) 1.2 H Eos # (Auto) Seg Neutrophils % 75.4 H Seg Neuts % (Manual) Baso # (Auto) Lymphocytes % (Manual) Monocytes % (Manual) Eosinophils % (Manual) Basophils % (Manual) Seg Neutrophils # 11.6 H Seg Neutrophils # Man Lymphocytes # (Manual) Monocytes # (Manual) Eosinophils # (Manual) Nucleated RBC % Basophils # (Manual) PT INR APTT Heparin Anti-Xa Level ABG pH POC ABG pO2 ABG pO2 ABG HCO3 ABG O2 Saturation ABG Base Excess POC ABG pCO2 ABG Hemoglobin ABG Oxyhemoglobin ABG Chloride ABG Glucose Oxyhemoglobin Sodium 148 H Potassium 3.5 L Chloride Carbon Dioxide 32 H BUN Creatinine 0.6 L Glucose 114 H POC Glucose 111 H Lactic Acid Calcium Phosphorus Magnesium AST ALT 59 H Lactate Dehydrogenase Total Bilirubin Direct Bilirubin CK-MB (CK-2) C-Reactive Protein NT-Pro-B Natriuret Pep Total Protein Albumin 2.6 L Arterial Blood Glucose Urine WBC (Auto) Urine Creatinine 01/05/20 01/05/20 01/05/20 04:05 04:05 05:19 WBC 11.7 H RBC 3.50 L Hgb 9.3 L Hct 29.9 L MCHC 31 L RDW 16.6 H MCV MCH 27 L Lymph % (Auto) 13.1 L [place] % (Auto) 9.7 H [place] # Eos # Lymph # (Auto) [place] # (Auto) 1.1 H Eos # (Auto) Seg Neutrophils % 74.0 H Seg Neuts % (Manual) Baso # (Auto) Lymphocytes % (Manual) Monocytes % (Manual) Eosinophils % (Manual) Basophils % (Manual) Seg Neutrophils # 8.6 H Seg Neutrophils # Man Lymphocytes # (Manual) Monocytes # (Manual) Eosinophils # (Manual) Nucleated RBC % Basophils # (Manual) PT INR APTT Heparin Anti-Xa Level ABG pH POC ABG pO2 ABG pO2 ABG HCO3 ABG O2 Saturation ABG Base Excess POC ABG pCO2 ABG Hemoglobin ABG Oxyhemoglobin ABG Chloride ABG Glucose Oxyhemoglobin Sodium 151 H Potassium Chloride Carbon Dioxide 34 H BUN Creatinine 0.7 L Glucose POC Glucose 112 H Lactic Acid Calcium Phosphorus Magnesium AST ALT 59 H Lactate Dehydrogenase Total Bilirubin Direct Bilirubin CK-MB (CK-2) C-Reactive Protein NT-Pro-B Natriuret Pep Total Protein 5.8 L Albumin 2.6 L Arterial Blood Glucose Urine WBC (Auto) Urine Creatinine 01/05/20 01/06/20 01/06/20 16:04 00:23 04:44 WBC RBC 3.36 L Hgb 8.9 L Hct 28.7 L MCHC 31 L RDW 16.9 H MCV MCH 26 L Lymph % (Auto) [place] % (Auto) 9.4 H [place] # Eos # Lymph # (Auto) [place] # (Auto) Eos # (Auto) Seg Neutrophils % Seg Neuts % (Manual) Baso # (Auto) Lymphocytes % (Manual) Monocytes % (Manual) Eosinophils % (Manual) Basophils % (Manual) Seg Neutrophils # Seg Neutrophils # Man Lymphocytes # (Manual) Monocytes # (Manual) Eosinophils # (Manual) Nucleated RBC % Basophils # (Manual) PT INR APTT Heparin Anti-Xa Level ABG pH POC ABG pO2 ABG pO2 ABG HCO3 ABG O2 Saturation ABG Base Excess POC ABG pCO2 ABG Hemoglobin ABG Oxyhemoglobin ABG Chloride ABG Glucose Oxyhemoglobin Sodium 151 H Potassium 3.2 L Chloride Carbon Dioxide 34 H BUN Creatinine 0.6 L Glucose POC Glucose 107 H Lactic Acid Calcium Phosphorus Magnesium AST ALT Lactate Dehydrogenase Total Bilirubin Direct Bilirubin CK-MB (CK-2) C-Reactive Protein NT-Pro-B Natriuret Pep Total Protein Albumin Arterial Blood Glucose Urine WBC (Auto) Urine Creatinine 01/06/20 01/06/20 01/06/20 04:44 05:33 12:04 WBC RBC Hgb Hct MCHC RDW MCV MCH Lymph % (Auto) [place] % (Auto) [place] # Eos # Lymph # (Auto) [place] # (Auto) Eos # (Auto) Seg Neutrophils % Seg Neuts % (Manual) Baso # (Auto) Lymphocytes % (Manual) Monocytes % (Manual) Eosinophils % (Manual) Basophils % (Manual) Seg Neutrophils # Seg Neutrophils # Man Lymphocytes # (Manual) Monocytes # (Manual) Eosinophils # (Manual) Nucleated RBC % Basophils # (Manual) PT INR APTT Heparin Anti-Xa Level ABG pH POC ABG pO2 ABG pO2 ABG HCO3 ABG O2 Saturation ABG Base Excess POC ABG pCO2 ABG Hemoglobin ABG Oxyhemoglobin ABG Chloride ABG Glucose Oxyhemoglobin Sodium 151 H Potassium 3.4 L Chloride Carbon Dioxide 33 H BUN Creatinine 0.6 L Glucose 118 H POC Glucose 118 H 123 H Lactic Acid Calcium Phosphorus Magnesium AST ALT Lactate Dehydrogenase Total Bilirubin Direct Bilirubin CK-MB (CK-2) C-Reactive Protein NT-Pro-B Natriuret Pep Total Protein 6.2 L Albumin 2.6 L Arterial Blood Glucose Urine WBC (Auto) Urine Creatinine 01/06/20 01/07/20 01/07/20 17:54 00:06 04:10 WBC RBC 3.42 L Hgb 8.9 L Hct 29.0 L MCHC 31 L RDW 17.1 H MCV MCH 26 L Lymph % (Auto) [place] % (Auto) 8.4 H [place] # Eos # Lymph # (Auto) [place] # (Auto) Eos # (Auto) Seg Neutrophils % Seg Neuts % (Manual) Baso # (Auto) Lymphocytes % (Manual) Monocytes % (Manual) Eosinophils % (Manual) Basophils % (Manual) Seg Neutrophils # Seg Neutrophils # Man Lymphocytes # (Manual) Monocytes # (Manual) Eosinophils # (Manual) Nucleated RBC % Basophils # (Manual) PT INR APTT Heparin Anti-Xa Level ABG pH POC ABG pO2 ABG pO2 ABG HCO3 ABG O2 Saturation ABG Base Excess POC ABG pCO2 ABG Hemoglobin ABG Oxyhemoglobin ABG Chloride ABG Glucose Oxyhemoglobin Sodium Potassium Chloride Carbon Dioxide BUN Creatinine Glucose POC Glucose 112 H 126 H Lactic Acid Calcium Phosphorus Magnesium AST ALT Lactate Dehydrogenase Total Bilirubin Direct Bilirubin CK-MB (CK-2) C-Reactive Protein NT-Pro-B Natriuret Pep Total Protein Albumin Arterial Blood Glucose Urine WBC (Auto) Urine Creatinine 01/07/20 01/07/20 01/07/20 04:10 05:59 12:27 WBC RBC Hgb Hct MCHC RDW MCV MCH Lymph % (Auto) [place] % (Auto) [place] # Eos # Lymph # (Auto) [place] # (Auto) Eos # (Auto) Seg Neutrophils % Seg Neuts % (Manual) Baso # (Auto) Lymphocytes % (Manual) Monocytes % (Manual) Eosinophils % (Manual) Basophils % (Manual) Seg Neutrophils # Seg Neutrophils # Man Lymphocytes # (Manual) Monocytes # (Manual) Eosinophils # (Manual) Nucleated RBC % Basophils # (Manual) PT INR APTT Heparin Anti-Xa Level ABG pH POC ABG pO2 ABG pO2 ABG HCO3 ABG O2 Saturation ABG Base Excess POC ABG pCO2 ABG Hemoglobin ABG Oxyhemoglobin ABG Chloride ABG Glucose Oxyhemoglobin Sodium 153 H Potassium 3.5 L Chloride Carbon Dioxide 34 H BUN Creatinine 0.6 L Glucose 121 H POC Glucose 121 H 126 H Lactic Acid Calcium Phosphorus Magnesium AST ALT Lactate Dehydrogenase Total Bilirubin Direct Bilirubin CK-MB (CK-2) C-Reactive Protein NT-Pro-B Natriuret Pep Total Protein 5.9 L Albumin 2.4 L Arterial Blood Glucose Urine WBC (Auto) Urine Creatinine 01/07/20 01/08/20 01/08/20 18:12 00:03 05:41 WBC RBC Hgb Hct MCHC RDW MCV MCH Lymph % (Auto) [place] % (Auto) [place] # Eos # Lymph # (Auto) [place] # (Auto) Eos # (Auto) Seg Neutrophils % Seg Neuts % (Manual) Baso # (Auto) Lymphocytes % (Manual) Monocytes % (Manual) Eosinophils % (Manual) Basophils % (Manual) Seg Neutrophils # Seg Neutrophils # Man Lymphocytes # (Manual) Monocytes # (Manual) Eosinophils # (Manual) Nucleated RBC % Basophils # (Manual) PT INR APTT Heparin Anti-Xa Level ABG pH POC ABG pO2 ABG pO2 ABG HCO3 ABG O2 Saturation ABG Base Excess POC ABG pCO2 ABG Hemoglobin ABG Oxyhemoglobin ABG Chloride ABG Glucose Oxyhemoglobin Sodium Potassium Chloride Carbon Dioxide BUN Creatinine Glucose POC Glucose 124 H 130 H 138 H Lactic Acid Calcium Phosphorus Magnesium AST ALT Lactate Dehydrogenase Total Bilirubin Direct Bilirubin CK-MB (CK-2) C-Reactive Protein NT-Pro-B Natriuret Pep Total Protein Albumin Arterial Blood Glucose Urine WBC (Auto) Urine Creatinine 01/08/20 01/08/20 01/08/20 09:28 11:42 18:21 WBC RBC Hgb Hct MCHC RDW MCV MCH Lymph % (Auto) [place] % (Auto) [place] # Eos # Lymph # (Auto) [place] # (Auto) Eos # (Auto) Seg Neutrophils % Seg Neuts % (Manual) Baso # (Auto) Lymphocytes % (Manual) Monocytes % (Manual) Eosinophils % (Manual) Basophils % (Manual) Seg Neutrophils # Seg Neutrophils # Man Lymphocytes # (Manual) Monocytes # (Manual) Eosinophils # (Manual) Nucleated RBC % Basophils # (Manual) PT INR APTT Heparin Anti-Xa Level ABG pH POC ABG pO2 ABG pO2 ABG HCO3 ABG O2 Saturation ABG Base Excess POC ABG pCO2 ABG Hemoglobin ABG Oxyhemoglobin ABG Chloride ABG Glucose Oxyhemoglobin Sodium Potassium Chloride Carbon Dioxide BUN Creatinine Glucose POC Glucose 181 H 150 H 129 H Lactic Acid Calcium Phosphorus Magnesium AST ALT Lactate Dehydrogenase Total Bilirubin Direct Bilirubin CK-MB (CK-2) C-Reactive Protein NT-Pro-B Natriuret Pep Total Protein Albumin Arterial Blood Glucose Urine WBC (Auto) Urine Creatinine 01/08/20 01/08/20 01/09/20 19:25 23:55 04:11 WBC RBC 3.43 L Hgb 8.9 L Hct 28.7 L MCHC 31 L RDW 17.6 H MCV MCH 26 L Lymph % (Auto) [place] % (Auto) 8.6 H [place] # Eos # Lymph # (Auto) [place] # (Auto) Eos # (Auto) Seg Neutrophils % Seg Neuts % (Manual) Baso # (Auto) Lymphocytes % (Manual) Monocytes % (Manual) Eosinophils % (Manual) Basophils % (Manual) Seg Neutrophils # Seg Neutrophils # Man Lymphocytes # (Manual) Monocytes # (Manual) Eosinophils # (Manual) Nucleated RBC % Basophils # (Manual) PT INR APTT Heparin Anti-Xa Level ABG pH POC ABG pO2 ABG pO2 ABG HCO3 ABG O2 Saturation ABG Base Excess POC ABG pCO2 ABG Hemoglobin ABG Oxyhemoglobin ABG Chloride ABG Glucose Oxyhemoglobin Sodium Potassium Chloride Carbon Dioxide BUN Creatinine 0.7 L Glucose 117 H POC Glucose 132 H Lactic Acid Calcium Phosphorus Magnesium AST ALT Lactate Dehydrogenase Total Bilirubin Direct Bilirubin CK-MB (CK-2) C-Reactive Protein NT-Pro-B Natriuret Pep Total Protein Albumin Arterial Blood Glucose Urine WBC (Auto) Urine Creatinine 01/09/20 01/09/20 01/09/20 04:11 05:38 22:58 WBC RBC Hgb Hct MCHC RDW MCV MCH Lymph % (Auto) [place] % (Auto) [place] # Eos # Lymph # (Auto) [place] # (Auto) Eos # (Auto) Seg Neutrophils % Seg Neuts % (Manual) Baso # (Auto) Lymphocytes % (Manual) Monocytes % (Manual) Eosinophils % (Manual) Basophils % (Manual) Seg Neutrophils # Seg Neutrophils # Man Lymphocytes # (Manual) Monocytes # (Manual) Eosinophils # (Manual) Nucleated RBC % Basophils # (Manual) PT INR APTT Heparin Anti-Xa Level ABG pH POC ABG pO2 ABG pO2 ABG HCO3 ABG O2 Saturation ABG Base Excess POC ABG pCO2 ABG Hemoglobin ABG Oxyhemoglobin ABG Chloride ABG Glucose Oxyhemoglobin Sodium 147 H Potassium 3.3 L D Chloride Carbon Dioxide 32 H BUN Creatinine 0.6 L Glucose 106 H POC Glucose 107 H 113 H Lactic Acid Calcium Phosphorus Magnesium AST ALT Lactate Dehydrogenase Total Bilirubin Direct Bilirubin CK-MB (CK-2) C-Reactive Protein NT-Pro-B Natriuret Pep Total Protein Albumin Arterial Blood Glucose Urine WBC (Auto) Urine Creatinine 01/10/20 01/10/20 01/10/20 04:05 11:36 17:54 WBC RBC Hgb Hct MCHC RDW MCV MCH Lymph % (Auto) [place] % (Auto) [place] # Eos # Lymph # (Auto) [place] # (Auto) Eos # (Auto) Seg Neutrophils % Seg Neuts % (Manual) Baso # (Auto) Lymphocytes % (Manual) Monocytes % (Manual) Eosinophils % (Manual) Basophils % (Manual) Seg Neutrophils # Seg Neutrophils # Man Lymphocytes # (Manual) Monocytes # (Manual) Eosinophils # (Manual) Nucleated RBC % Basophils # (Manual) PT INR APTT Heparin Anti-Xa Level ABG pH POC ABG pO2 ABG pO2 ABG HCO3 ABG O2 Saturation ABG Base Excess POC ABG pCO2 ABG Hemoglobin ABG Oxyhemoglobin ABG Chloride ABG Glucose Oxyhemoglobin Sodium Potassium Chloride Carbon Dioxide BUN Creatinine 0.7 L Glucose 110 H POC Glucose 129 H 117 H Lactic Acid Calcium Phosphorus Magnesium AST ALT Lactate Dehydrogenase Total Bilirubin Direct Bilirubin CK-MB (CK-2) C-Reactive Protein NT-Pro-B Natriuret Pep Total Protein Albumin Arterial Blood Glucose Urine WBC (Auto) Urine Creatinine 01/10/20 01/11/20 01/11/20 23:52 03:19 12:09 WBC RBC Hgb Hct MCHC RDW MCV MCH Lymph % (Auto) [place] % (Auto) [place] # Eos # Lymph # (Auto) [place] # (Auto) Eos # (Auto) Seg Neutrophils % Seg Neuts % (Manual) Baso # (Auto) Lymphocytes % (Manual) Monocytes % (Manual) Eosinophils % (Manual) Basophils % (Manual) Seg Neutrophils # Seg Neutrophils # Man Lymphocytes # (Manual) Monocytes # (Manual) Eosinophils # (Manual) Nucleated RBC % Basophils # (Manual) PT INR APTT Heparin Anti-Xa Level ABG pH POC ABG pO2 ABG pO2 ABG HCO3 ABG O2 Saturation ABG Base Excess POC ABG pCO2 ABG Hemoglobin ABG Oxyhemoglobin ABG Chloride ABG Glucose Oxyhemoglobin Sodium Potassium Chloride Carbon Dioxide BUN Creatinine Glucose POC Glucose 117 H 136 H 115 H Lactic Acid Calcium Phosphorus Magnesium AST ALT Lactate Dehydrogenase Total Bilirubin Direct Bilirubin CK-MB (CK-2) C-Reactive Protein NT-Pro-B Natriuret Pep Total Protein Albumin Arterial Blood Glucose Urine WBC (Auto) Urine Creatinine 10/19/20 10/19/20 10/20/20 18:27 23:28 00:23 WBC RBC Hgb 9.8 L Hct 31.6 L MCHC 31 L RDW 17.8 H MCV 83 L MCH 26 L Lymph % (Auto) [place] % (Auto) 8.0 H [place] # Eos # Lymph # (Auto) [place] # (Auto) Eos # (Auto) Seg Neutrophils % Seg Neuts % (Manual) Baso # (Auto) Lymphocytes % (Manual) Monocytes % (Manual) Eosinophils % (Manual) Basophils % (Manual) Seg Neutrophils # Seg Neutrophils # Man Lymphocytes # (Manual) Monocytes # (Manual) Eosinophils # (Manual) Nucleated RBC % Basophils # (Manual) PT INR APTT Heparin Anti-Xa Level ABG pH POC ABG pO2 ABG pO2 ABG HCO3 ABG O2 Saturation ABG Base Excess POC ABG pCO2 ABG Hemoglobin ABG Oxyhemoglobin ABG Chloride ABG Glucose Oxyhemoglobin Sodium Potassium Chloride Carbon Dioxide BUN Creatinine Glucose POC Glucose 118 H 122 H Lactic Acid Calcium Phosphorus Magnesium AST ALT Lactate Dehydrogenase Total Bilirubin Direct Bilirubin CK-MB (CK-2) C-Reactive Protein NT-Pro-B Natriuret Pep Total Protein Albumin Arterial Blood Glucose Urine WBC (Auto) Urine Creatinine 01/12/20 01/12/20 01/12/20 00:23 04:18 04:18 WBC RBC Hgb 9.6 L Hct 30.9 L MCHC 31 L RDW 17.3 H MCV 81 L MCH 25 L Lymph % (Auto) [place] % (Auto) [place] # Eos # Lymph # (Auto) [place] # (Auto) Eos # (Auto) Seg Neutrophils % Seg Neuts % (Manual) Baso # (Auto) Lymphocytes % (Manual) Monocytes % (Manual) Eosinophils % (Manual) Basophils % (Manual) Seg Neutrophils # Seg Neutrophils # Man Lymphocytes # (Manual) Monocytes # (Manual) Eosinophils # (Manual) Nucleated RBC % Basophils # (Manual) PT INR APTT Heparin Anti-Xa Level ABG pH POC ABG pO2 ABG pO2 ABG HCO3 ABG O2 Saturation ABG Base Excess POC ABG pCO2 ABG Hemoglobin ABG Oxyhemoglobin ABG Chloride ABG Glucose Oxyhemoglobin Sodium Potassium Chloride Carbon Dioxide BUN Creatinine 0.7 L 0.7 L Glucose 111 H 108 H POC Glucose Lactic Acid Calcium Phosphorus Magnesium AST ALT Lactate Dehydrogenase Total Bilirubin Direct Bilirubin CK-MB (CK-2) C-Reactive Protein NT-Pro-B Natriuret Pep Total Protein Albumin 2.6 L Arterial Blood Glucose Urine WBC (Auto) Urine Creatinine 01/12/20 01/12/20 01/12/20 06:03 12:27 13:58 WBC RBC Hgb Hct MCHC RDW MCV MCH Lymph % (Auto) [place] % (Auto) [place] # Eos # Lymph # (Auto) [place] # (Auto) Eos # (Auto) Seg Neutrophils % Seg Neuts % (Manual) Baso # (Auto) Lymphocytes % (Manual) Monocytes % (Manual) Eosinophils % (Manual) Basophils % (Manual) Seg Neutrophils # Seg Neutrophils # Man Lymphocytes # (Manual) Monocytes # (Manual) Eosinophils # (Manual) Nucleated RBC % Basophils # (Manual) PT INR APTT Heparin Anti-Xa Level ABG pH 7.453 H POC ABG pO2 76.6 L ABG pO2 ABG HCO3 ABG O2 Saturation ABG Base Excess POC ABG pCO2 ABG Hemoglobin 10.3 L ABG Oxyhemoglobin ABG Chloride ABG Glucose 99 H Oxyhemoglobin Sodium Potassium Chloride Carbon Dioxide BUN Creatinine Glucose POC Glucose 128 H 121 H Lactic Acid Calcium Phosphorus Magnesium AST ALT Lactate Dehydrogenase Total Bilirubin Direct Bilirubin CK-MB (CK-2) C-Reactive Protein NT-Pro-B Natriuret Pep Total Protein Albumin Arterial Blood Glucose 99 H Urine WBC (Auto) Urine Creatinine 01/12/20 01/13/20 01/13/20 18:24 12:01 17:46 WBC RBC Hgb Hct MCHC RDW MCV MCH Lymph % (Auto) [place] % (Auto) [place] # Eos # Lymph # (Auto) [place] # (Auto) Eos # (Auto) Seg Neutrophils % Seg Neuts % (Manual) Baso # (Auto) Lymphocytes % (Manual) Monocytes % (Manual) Eosinophils % (Manual) Basophils % (Manual) Seg Neutrophils # Seg Neutrophils # Man Lymphocytes # (Manual) Monocytes # (Manual) Eosinophils # (Manual) Nucleated RBC % Basophils # (Manual) PT INR APTT Heparin Anti-Xa Level ABG pH POC ABG pO2 ABG pO2 ABG HCO3 ABG O2 Saturation ABG Base Excess POC ABG pCO2 ABG Hemoglobin ABG Oxyhemoglobin ABG Chloride ABG Glucose Oxyhemoglobin Sodium Potassium Chloride Carbon Dioxide BUN Creatinine Glucose POC Glucose 119 H 107 H 124 H Lactic Acid Calcium Phosphorus Magnesium AST ALT Lactate Dehydrogenase Total Bilirubin Direct Bilirubin CK-MB (CK-2) C-Reactive Protein NT-Pro-B Natriuret Pep Total Protein Albumin Arterial Blood Glucose Urine WBC (Auto) Urine Creatinine 01/13/20 01/14/20 01/14/20 20:40 00:10 05:33 WBC RBC Hgb Hct MCHC RDW MCV MCH Lymph % (Auto) [place] % (Auto) [place] # Eos # Lymph # (Auto) [place] # (Auto) Eos # (Auto) Seg Neutrophils % Seg Neuts % (Manual) Baso # (Auto) Lymphocytes % (Manual) Monocytes % (Manual) Eosinophils % (Manual) Basophils % (Manual) Seg Neutrophils # Seg Neutrophils # Man Lymphocytes # (Manual) Monocytes # (Manual) Eosinophils # (Manual) Nucleated RBC % Basophils # (Manual) PT INR APTT Heparin Anti-Xa Level ABG pH POC ABG pO2 ABG pO2 65.3 L ABG HCO3 31.8 H ABG O2 Saturation 93.5 L ABG Base Excess 6.7 H POC ABG pCO2 ABG Hemoglobin 13.3 L ABG Oxyhemoglobin ABG Chloride ABG Glucose Oxyhemoglobin 90.9 L Sodium Potassium Chloride Carbon Dioxide BUN Creatinine Glucose POC Glucose 111 H 111 H Lactic Acid Calcium Phosphorus Magnesium AST ALT Lactate Dehydrogenase Total Bilirubin Direct Bilirubin CK-MB (CK-2) C-Reactive Protein NT-Pro-B Natriuret Pep Total Protein Albumin Arterial Blood Glucose Urine WBC (Auto) Urine Creatinine 01/14/20 01/14/20 01/14/20 12:10 16:14 16:14 WBC RBC Hgb 10.6 L Hct 34.2 L MCHC 31 L RDW 18.3 H MCV 83 L MCH 26 L Lymph % (Auto) [place] % (Auto) 7.4 H [place] # Eos # Lymph # (Auto) [place] # (Auto) Eos # (Auto) Seg Neutrophils % 71.9 H Seg Neuts % (Manual) Baso # (Auto) Lymphocytes % (Manual) Monocytes % (Manual) Eosinophils % (Manual) Basophils % (Manual) Seg Neutrophils # Seg Neutrophils # Man Lymphocytes # (Manual) Monocytes # (Manual) Eosinophils # (Manual) Nucleated RBC % Basophils # (Manual) PT INR APTT Heparin Anti-Xa Level ABG pH POC ABG pO2 ABG pO2 ABG HCO3 ABG O2 Saturation ABG Base Excess POC ABG pCO2 ABG Hemoglobin ABG Oxyhemoglobin ABG Chloride ABG Glucose Oxyhemoglobin Sodium Potassium Chloride Carbon Dioxide 31 H BUN Creatinine 0.6 L Glucose 131 H POC Glucose 139 H Lactic Acid Calcium Phosphorus Magnesium AST ALT Lactate Dehydrogenase Total Bilirubin Direct Bilirubin CK-MB (CK-2) C-Reactive Protein NT-Pro-B Natriuret Pep Total Protein Albumin Arterial Blood Glucose Urine WBC (Auto) Urine Creatinine 01/14/20 01/15/20 01/15/20 18:05 00:52 05:35 WBC RBC Hgb Hct MCHC RDW MCV MCH Lymph % (Auto) [place] % (Auto) [place] # Eos # Lymph # (Auto) [place] # (Auto) Eos # (Auto) Seg Neutrophils % Seg Neuts % (Manual) Baso # (Auto) Lymphocytes % (Manual) Monocytes % (Manual) Eosinophils % (Manual) Basophils % (Manual) Seg Neutrophils # Seg Neutrophils # Man Lymphocytes # (Manual) Monocytes # (Manual) Eosinophils # (Manual) Nucleated RBC % Basophils # (Manual) PT INR APTT Heparin Anti-Xa Level ABG pH POC ABG pO2 ABG pO2 ABG HCO3 ABG O2 Saturation ABG Base Excess POC ABG pCO2 ABG Hemoglobin ABG Oxyhemoglobin ABG Chloride ABG Glucose Oxyhemoglobin Sodium Potassium Chloride Carbon Dioxide BUN Creatinine Glucose POC Glucose 147 H 140 H 159 H Lactic Acid Calcium Phosphorus Magnesium AST ALT Lactate Dehydrogenase Total Bilirubin Direct Bilirubin CK-MB (CK-2) C-Reactive Protein NT-Pro-B Natriuret Pep Total Protein Albumin Arterial Blood Glucose Urine WBC (Auto) Urine Creatinine 01/15/20 01/15/20 01/16/20 12:52 17:43 00:32 WBC RBC Hgb Hct MCHC RDW MCV MCH Lymph % (Auto) [place] % (Auto) [place] # Eos # Lymph # (Auto) [place] # (Auto) Eos # (Auto) Seg Neutrophils % Seg Neuts % (Manual) Baso # (Auto) Lymphocytes % (Manual) Monocytes % (Manual) Eosinophils % (Manual) Basophils % (Manual) Seg Neutrophils # Seg Neutrophils # Man Lymphocytes # (Manual) Monocytes # (Manual) Eosinophils # (Manual) Nucleated RBC % Basophils # (Manual) PT INR APTT Heparin Anti-Xa Level ABG pH POC ABG pO2 ABG pO2 ABG HCO3 ABG O2 Saturation ABG Base Excess POC ABG pCO2 ABG Hemoglobin ABG Oxyhemoglobin ABG Chloride ABG Glucose Oxyhemoglobin Sodium Potassium Chloride Carbon Dioxide BUN Creatinine Glucose POC Glucose 164 H 167 H 153 H Lactic Acid Calcium Phosphorus Magnesium AST ALT Lactate Dehydrogenase Total Bilirubin Direct Bilirubin CK-MB (CK-2) C-Reactive Protein NT-Pro-B Natriuret Pep Total Protein Albumin Arterial Blood Glucose Urine WBC (Auto) Urine Creatinine 01/16/20 01/16/20 01/17/20 05:46 11:48 06:38 WBC RBC Hgb Hct MCHC RDW MCV MCH Lymph % (Auto) [place] % (Auto) [place] # Eos # Lymph # (Auto) [place] # (Auto) Eos # (Auto) Seg Neutrophils % Seg Neuts % (Manual) Baso # (Auto) Lymphocytes % (Manual) Monocytes % (Manual) Eosinophils % (Manual) Basophils % (Manual) Seg Neutrophils # Seg Neutrophils # Man Lymphocytes # (Manual) Monocytes # (Manual) Eosinophils # (Manual) Nucleated RBC % Basophils # (Manual) PT INR APTT Heparin Anti-Xa Level ABG pH POC ABG pO2 ABG pO2 ABG HCO3 ABG O2 Saturation ABG Base Excess POC ABG pCO2 ABG Hemoglobin ABG Oxyhemoglobin ABG Chloride ABG Glucose Oxyhemoglobin Sodium Potassium Chloride Carbon Dioxide BUN Creatinine Glucose POC Glucose 163 H 155 H 116 H Lactic Acid Calcium Phosphorus Magnesium AST ALT Lactate Dehydrogenase Total Bilirubin Direct Bilirubin CK-MB (CK-2) C-Reactive Protein NT-Pro-B Natriuret Pep Total Protein Albumin Arterial Blood Glucose Urine WBC (Auto) Urine Creatinine 01/17/20 01/17/20 01/18/20 11:36 17:43 00:12 WBC RBC Hgb Hct MCHC RDW MCV MCH Lymph % (Auto) [place] % (Auto) [place] # Eos # Lymph # (Auto) [place] # (Auto) Eos # (Auto) Seg Neutrophils % Seg Neuts % (Manual) Baso # (Auto) Lymphocytes % (Manual) Monocytes % (Manual) Eosinophils % (Manual) Basophils % (Manual) Seg Neutrophils # Seg Neutrophils # Man Lymphocytes # (Manual) Monocytes # (Manual) Eosinophils # (Manual) Nucleated RBC % Basophils # (Manual) PT INR APTT Heparin Anti-Xa Level ABG pH POC ABG pO2 ABG pO2 ABG HCO3 ABG O2 Saturation ABG Base Excess POC ABG pCO2 ABG Hemoglobin ABG Oxyhemoglobin ABG Chloride ABG Glucose Oxyhemoglobin Sodium Potassium Chloride Carbon Dioxide BUN Creatinine Glucose POC Glucose 110 H 134 H 108 H Lactic Acid Calcium Phosphorus Magnesium AST ALT Lactate Dehydrogenase Total Bilirubin Direct Bilirubin CK-MB (CK-2) C-Reactive Protein NT-Pro-B Natriuret Pep Total Protein Albumin Arterial Blood Glucose Urine WBC (Auto) Urine Creatinine 01/18/20 01/18/20 01/18/20 05:37 06:46 06:46 WBC RBC Hgb 10.1 L Hct 32.2 L MCHC 31 L RDW 18.1 H MCV 81 L MCH 25 L Lymph % (Auto) [place] % (Auto) [place] # Eos # Lymph # (Auto) [place] # (Auto) Eos # (Auto) Seg Neutrophils % 71.9 H Seg Neuts % (Manual) Baso # (Auto) Lymphocytes % (Manual) Monocytes % (Manual) Eosinophils % (Manual) Basophils % (Manual) Seg Neutrophils # Seg Neutrophils # Man Lymphocytes # (Manual) Monocytes # (Manual) Eosinophils # (Manual) Nucleated RBC % Basophils # (Manual) PT INR APTT Heparin Anti-Xa Level ABG pH POC ABG pO2 ABG pO2 ABG HCO3 ABG O2 Saturation ABG Base Excess POC ABG pCO2 ABG Hemoglobin ABG Oxyhemoglobin ABG Chloride ABG Glucose Oxyhemoglobin Sodium Potassium Chloride Carbon Dioxide BUN Creatinine 0.7 L Glucose 155 H POC Glucose 168 H Lactic Acid Calcium Phosphorus Magnesium AST ALT Lactate Dehydrogenase Total Bilirubin Direct Bilirubin CK-MB (CK-2) C-Reactive Protein NT-Pro-B Natriuret Pep Total Protein Albumin Arterial Blood Glucose Urine WBC (Auto) Urine Creatinine 01/18/20 01/18/20 01/18/20 12:05 17:14 23:28 WBC RBC Hgb Hct MCHC RDW MCV MCH Lymph % (Auto) [place] % (Auto) [place] # Eos # Lymph # (Auto) [place] # (Auto) Eos # (Auto) Seg Neutrophils % Seg Neuts % (Manual) Baso # (Auto) Lymphocytes % (Manual) Monocytes % (Manual) Eosinophils % (Manual) Basophils % (Manual) Seg Neutrophils # Seg Neutrophils # Man Lymphocytes # (Manual) Monocytes # (Manual) Eosinophils # (Manual) Nucleated RBC % Basophils # (Manual) PT INR APTT Heparin Anti-Xa Level ABG pH POC ABG pO2 ABG pO2 ABG HCO3 ABG O2 Saturation ABG Base Excess POC ABG pCO2 ABG Hemoglobin ABG Oxyhemoglobin ABG Chloride ABG Glucose Oxyhemoglobin Sodium Potassium Chloride Carbon Dioxide BUN Creatinine Glucose POC Glucose 128 H 126 H 128 H Lactic Acid Calcium Phosphorus Magnesium AST ALT Lactate Dehydrogenase Total Bilirubin Direct Bilirubin CK-MB (CK-2) C-Reactive Protein NT-Pro-B Natriuret Pep Total Protein Albumin Arterial Blood Glucose Urine WBC (Auto) Urine Creatinine 01/19/20 01/19/20 01/19/20 05:39 12:33 17:36 WBC RBC Hgb Hct MCHC RDW MCV MCH Lymph % (Auto) [place] % (Auto) [place] # Eos # Lymph # (Auto) [place] # (Auto) Eos # (Auto) Seg Neutrophils % Seg Neuts % (Manual) Baso # (Auto) Lymphocytes % (Manual) Monocytes % (Manual) Eosinophils % (Manual) Basophils % (Manual) Seg Neutrophils # Seg Neutrophils # Man Lymphocytes # (Manual) Monocytes # (Manual) Eosinophils # (Manual) Nucleated RBC % Basophils # (Manual) PT INR APTT Heparin Anti-Xa Level ABG pH POC ABG pO2 ABG pO2 ABG HCO3 ABG O2 Saturation ABG Base Excess POC ABG pCO2 ABG Hemoglobin ABG Oxyhemoglobin ABG Chloride ABG Glucose Oxyhemoglobin Sodium Potassium Chloride Carbon Dioxide BUN Creatinine Glucose POC Glucose 164 H 171 H 152 H Lactic Acid Calcium Phosphorus Magnesium AST ALT Lactate Dehydrogenase Total Bilirubin Direct Bilirubin CK-MB (CK-2) C-Reactive Protein NT-Pro-B Natriuret Pep Total Protein Albumin Arterial Blood Glucose Urine WBC (Auto) Urine Creatinine 01/20/20 01/20/20 01/20/20 00:12 05:20 05:35 WBC RBC Hgb 9.2 L Hct 29.4 L MCHC 31 L RDW 17.9 H MCV 81 L MCH 25 L Lymph % (Auto) [place] % (Auto) [place] # Eos # Lymph # (Auto) [place] # (Auto) Eos # (Auto) Seg Neutrophils % Seg Neuts % (Manual) Baso # (Auto) Lymphocytes % (Manual) Monocytes % (Manual) Eosinophils % (Manual) Basophils % (Manual) Seg Neutrophils # Seg Neutrophils # Man Lymphocytes # (Manual) Monocytes # (Manual) Eosinophils # (Manual) Nucleated RBC % Basophils # (Manual) PT INR APTT Heparin Anti-Xa Level ABG pH POC ABG pO2 ABG pO2 ABG HCO3 ABG O2 Saturation ABG Base Excess POC ABG pCO2 ABG Hemoglobin ABG Oxyhemoglobin ABG Chloride ABG Glucose Oxyhemoglobin Sodium Potassium Chloride Carbon Dioxide BUN Creatinine Glucose POC Glucose 120 H 136 H Lactic Acid Calcium Phosphorus Magnesium AST ALT Lactate Dehydrogenase Total Bilirubin Direct Bilirubin CK-MB (CK-2) C-Reactive Protein NT-Pro-B Natriuret Pep Total Protein Albumin Arterial Blood Glucose Urine WBC (Auto) Urine Creatinine 01/20/20 01/20/20 01/20/20 05:40 11:58 14:55 WBC RBC Hgb 9.0 L Hct 28.3 L MCHC RDW MCV MCH Lymph % (Auto) [place] % (Auto) [place] # Eos # Lymph # (Auto) [place] # (Auto) Eos # (Auto) Seg Neutrophils % Seg Neuts % (Manual) Baso # (Auto) Lymphocytes % (Manual) Monocytes % (Manual) Eosinophils % (Manual) Basophils % (Manual) Seg Neutrophils # Seg Neutrophils # Man Lymphocytes # (Manual) Monocytes # (Manual) Eosinophils # (Manual) Nucleated RBC % Basophils # (Manual) PT INR APTT Heparin Anti-Xa Level ABG pH POC ABG pO2 ABG pO2 ABG HCO3 ABG O2 Saturation ABG Base Excess POC ABG pCO2 ABG Hemoglobin ABG Oxyhemoglobin ABG Chloride ABG Glucose Oxyhemoglobin Sodium Potassium Chloride Carbon Dioxide 32 H BUN 22 H Creatinine 0.7 L Glucose 128 H POC Glucose 152 H Lactic Acid Calcium Phosphorus Magnesium AST ALT Lactate Dehydrogenase Total Bilirubin Direct Bilirubin CK-MB (CK-2) C-Reactive Protein NT-Pro-B Natriuret Pep Total Protein Albumin Arterial Blood Glucose Urine WBC (Auto) Urine Creatinine 01/20/20 01/20/20 01/20/20 14:55 18:14 21:35 WBC RBC Hgb Hct MCHC RDW MCV MCH Lymph % (Auto) [place] % (Auto) [place] # Eos # Lymph # (Auto) [place] # (Auto) Eos # (Auto) Seg Neutrophils % Seg Neuts % (Manual) Baso # (Auto) Lymphocytes % (Manual) Monocytes % (Manual) Eosinophils % (Manual) Basophils % (Manual) Seg Neutrophils # Seg Neutrophils # Man Lymphocytes # (Manual) Monocytes # (Manual) Eosinophils # (Manual) Nucleated RBC % Basophils # (Manual) PT 20.4 H INR 1.72 H APTT 40.6 H Heparin Anti-Xa Level > 2.00 H ABG pH POC ABG pO2 ABG pO2 ABG HCO3 ABG O2 Saturation ABG Base Excess POC ABG pCO2 ABG Hemoglobin ABG Oxyhemoglobin ABG Chloride ABG Glucose Oxyhemoglobin Sodium Potassium Chloride Carbon Dioxide BUN Creatinine Glucose POC Glucose 150 H Lactic Acid Calcium Phosphorus Magnesium AST ALT Lactate Dehydrogenase Total Bilirubin Direct Bilirubin CK-MB (CK-2) C-Reactive Protein NT-Pro-B Natriuret Pep Total Protein Albumin Arterial Blood Glucose Urine WBC (Auto) Urine Creatinine 01/21/20 01/21/20 01/21/20 00:30 05:47 05:59 WBC RBC Hgb Hct MCHC RDW MCV MCH Lymph % (Auto) [place] % (Auto) [place] # Eos # Lymph # (Auto) [place] # (Auto) Eos # (Auto) Seg Neutrophils % Seg Neuts % (Manual) Baso # (Auto) Lymphocytes % (Manual) Monocytes % (Manual) Eosinophils % (Manual) Basophils % (Manual) Seg Neutrophils # Seg Neutrophils # Man Lymphocytes # (Manual) Monocytes # (Manual) Eosinophils # (Manual) Nucleated RBC % Basophils # (Manual) PT INR APTT Heparin Anti-Xa Level 1.93 H ABG pH POC ABG pO2 ABG pO2 ABG HCO3 ABG O2 Saturation ABG Base Excess POC ABG pCO2 ABG Hemoglobin ABG Oxyhemoglobin ABG Chloride ABG Glucose Oxyhemoglobin Sodium Potassium Chloride Carbon Dioxide BUN Creatinine Glucose POC Glucose 126 H 148 H Lactic Acid Calcium Phosphorus Magnesium AST ALT Lactate Dehydrogenase Total Bilirubin Direct Bilirubin CK-MB (CK-2) C-Reactive Protein NT-Pro-B Natriuret Pep Total Protein Albumin Arterial Blood Glucose Urine WBC (Auto) Urine Creatinine 01/21/20 01/21/20 01/21/20 12:32 18:20 23:54 WBC RBC Hgb Hct MCHC RDW MCV MCH Lymph % (Auto) [place] % (Auto) [place] # Eos # Lymph # (Auto) [place] # (Auto) Eos # (Auto) Seg Neutrophils % Seg Neuts % (Manual) Baso # (Auto) Lymphocytes % (Manual) Monocytes % (Manual) Eosinophils % (Manual) Basophils % (Manual) Seg Neutrophils # Seg Neutrophils # Man Lymphocytes # (Manual) Monocytes # (Manual) Eosinophils # (Manual) Nucleated RBC % Basophils # (Manual) PT INR APTT Heparin Anti-Xa Level 1.28 H ABG pH POC ABG pO2 ABG pO2 ABG HCO3 ABG O2 Saturation ABG Base Excess POC ABG pCO2 ABG Hemoglobin ABG Oxyhemoglobin ABG Chloride ABG Glucose Oxyhemoglobin Sodium Potassium Chloride Carbon Dioxide BUN Creatinine Glucose POC Glucose 112 H 146 H Lactic Acid Calcium Phosphorus Magnesium AST ALT Lactate Dehydrogenase Total Bilirubin Direct Bilirubin CK-MB (CK-2) C-Reactive Protein NT-Pro-B Natriuret Pep Total Protein Albumin Arterial Blood Glucose Urine WBC (Auto) Urine Creatinine 01/22/20 01/22/20 01/22/20 04:45 04:45 05:48 WBC RBC Hgb 9.3 L Hct 29.0 L MCHC RDW MCV MCH Lymph % (Auto) [place] % (Auto) [place] # Eos # Lymph # (Auto) [place] # (Auto) Eos # (Auto) Seg Neutrophils % Seg Neuts % (Manual) Baso # (Auto) Lymphocytes % (Manual) Monocytes % (Manual) Eosinophils % (Manual) Basophils % (Manual) Seg Neutrophils # Seg Neutrophils # Man Lymphocytes # (Manual) Monocytes # (Manual) Eosinophils # (Manual) Nucleated RBC % Basophils # (Manual) PT INR APTT Heparin Anti-Xa Level 1.34 H ABG pH POC ABG pO2 ABG pO2 ABG HCO3 ABG O2 Saturation ABG Base Excess POC ABG pCO2 ABG Hemoglobin ABG Oxyhemoglobin ABG Chloride ABG Glucose Oxyhemoglobin Sodium Potassium Chloride Carbon Dioxide BUN Creatinine Glucose POC Glucose 142 H Lactic Acid Calcium Phosphorus Magnesium AST ALT Lactate Dehydrogenase Total Bilirubin Direct Bilirubin CK-MB (CK-2) C-Reactive Protein NT-Pro-B Natriuret Pep Total Protein Albumin Arterial Blood Glucose Urine WBC (Auto) Urine Creatinine 01/22/20 01/22/20 01/22/20 08:09 08:22 09:58 WBC RBC Hgb Hct MCHC RDW MCV MCH Lymph % (Auto) [place] % (Auto) [place] # Eos # Lymph # (Auto) [place] # (Auto) Eos # (Auto) Seg Neutrophils % Seg Neuts % (Manual) Baso # (Auto) Lymphocytes % (Manual) Monocytes % (Manual) Eosinophils % (Manual) Basophils % (Manual) Seg Neutrophils # Seg Neutrophils # Man Lymphocytes # (Manual) Monocytes # (Manual) Eosinophils # (Manual) Nucleated RBC % Basophils # (Manual) PT 16.9 H INR 1.34 H APTT Heparin Anti-Xa Level ABG pH POC ABG pO2 ABG pO2 ABG HCO3 ABG O2 Saturation ABG Base Excess POC ABG pCO2 ABG Hemoglobin ABG Oxyhemoglobin ABG Chloride ABG Glucose Oxyhemoglobin Sodium Potassium Chloride 97.8 L Carbon Dioxide BUN 29 H Creatinine Glucose 128 H POC Glucose 131 H Lactic Acid Calcium Phosphorus Magnesium AST ALT Lactate Dehydrogenase Total Bilirubin Direct Bilirubin CK-MB (CK-2) C-Reactive Protein NT-Pro-B Natriuret Pep Total Protein Albumin Arterial Blood Glucose Urine WBC (Auto) Urine Creatinine 01/22/20 01/22/20 01/22/20 12:44 16:13 18:18 WBC RBC Hgb Hct MCHC RDW MCV MCH Lymph % (Auto) [place] % (Auto) [place] # Eos # Lymph # (Auto) [place] # (Auto) Eos # (Auto) Seg Neutrophils % Seg Neuts % (Manual) Baso # (Auto) Lymphocytes % (Manual) Monocytes % (Manual) Eosinophils % (Manual) Basophils % (Manual) Seg Neutrophils # Seg Neutrophils # Man Lymphocytes # (Manual) Monocytes # (Manual) Eosinophils # (Manual) Nucleated RBC % Basophils # (Manual) PT INR APTT Heparin Anti-Xa Level ABG pH POC ABG pO2 ABG pO2 ABG HCO3 ABG O2 Saturation ABG Base Excess POC ABG pCO2 ABG Hemoglobin ABG Oxyhemoglobin ABG Chloride ABG Glucose Oxyhemoglobin Sodium Potassium Chloride Carbon Dioxide BUN Creatinine Glucose POC Glucose 156 H 133 H 155 H Lactic Acid Calcium Phosphorus Magnesium AST ALT Lactate Dehydrogenase Total Bilirubin Direct Bilirubin CK-MB (CK-2) C-Reactive Protein NT-Pro-B Natriuret Pep Total Protein Albumin Arterial Blood Glucose Urine WBC (Auto) Urine Creatinine 01/22/20 01/23/20 01/23/20 23:22 05:37 12:59 WBC RBC Hgb Hct MCHC RDW MCV MCH Lymph % (Auto) [place] % (Auto) [place] # Eos # Lymph # (Auto) [place] # (Auto) Eos # (Auto) Seg Neutrophils % Seg Neuts % (Manual) Baso # (Auto) Lymphocytes % (Manual) Monocytes % (Manual) Eosinophils % (Manual) Basophils % (Manual) Seg Neutrophils # Seg Neutrophils # Man Lymphocytes # (Manual) Monocytes # (Manual) Eosinophils # (Manual) Nucleated RBC % Basophils # (Manual) PT INR APTT Heparin Anti-Xa Level ABG pH POC ABG pO2 ABG pO2 ABG HCO3 ABG O2 Saturation ABG Base Excess POC ABG pCO2 ABG Hemoglobin ABG Oxyhemoglobin ABG Chloride ABG Glucose Oxyhemoglobin Sodium Potassium Chloride Carbon Dioxide BUN Creatinine Glucose POC Glucose 148 H 163 H 175 H Lactic Acid Calcium Phosphorus Magnesium AST ALT Lactate Dehydrogenase Total Bilirubin Direct Bilirubin CK-MB (CK-2) C-Reactive Protein NT-Pro-B Natriuret Pep Total Protein Albumin Arterial Blood Glucose Urine WBC (Auto) Urine Creatinine 01/23/20 01/23/20 01/24/20 17:28 23:56 04:30 WBC RBC 3.46 L Hgb 8.8 L Hct 27.8 L MCHC RDW 18.2 H MCV 81 L MCH 25 L Lymph % (Auto) [place] % (Auto) 7.8 H [place] # Eos # Lymph # (Auto) [place] # (Auto) Eos # (Auto) Seg Neutrophils % Seg Neuts % (Manual) Baso # (Auto) Lymphocytes % (Manual) Monocytes % (Manual) Eosinophils % (Manual) Basophils % (Manual) Seg Neutrophils # Seg Neutrophils # Man Lymphocytes # (Manual) Monocytes # (Manual) Eosinophils # (Manual) Nucleated RBC % Basophils # (Manual) PT INR APTT Heparin Anti-Xa Level ABG pH POC ABG pO2 ABG pO2 ABG HCO3 ABG O2 Saturation ABG Base Excess POC ABG pCO2 ABG Hemoglobin ABG Oxyhemoglobin ABG Chloride ABG Glucose Oxyhemoglobin Sodium Potassium Chloride Carbon Dioxide BUN Creatinine Glucose POC Glucose 165 H 177 H Lactic Acid Calcium Phosphorus Magnesium AST ALT Lactate Dehydrogenase Total Bilirubin Direct Bilirubin CK-MB (CK-2) C-Reactive Protein NT-Pro-B Natriuret Pep Total Protein Albumin Arterial Blood Glucose Urine WBC (Auto) Urine Creatinine 01/24/20 01/24/20 01/24/20 04:30 07:18 12:06 WBC RBC Hgb Hct MCHC RDW MCV MCH Lymph % (Auto) [place] % (Auto) [place] # Eos # Lymph # (Auto) [place] # (Auto) Eos # (Auto) Seg Neutrophils % Seg Neuts % (Manual) Baso # (Auto) Lymphocytes % (Manual) Monocytes % (Manual) Eosinophils % (Manual) Basophils % (Manual) Seg Neutrophils # Seg Neutrophils # Man Lymphocytes # (Manual) Monocytes # (Manual) Eosinophils # (Manual) Nucleated RBC % Basophils # (Manual) PT INR APTT Heparin Anti-Xa Level ABG pH POC ABG pO2 ABG pO2 ABG HCO3 ABG O2 Saturation ABG Base Excess POC ABG pCO2 ABG Hemoglobin ABG Oxyhemoglobin ABG Chloride ABG Glucose Oxyhemoglobin Sodium Potassium Chloride 97.9 L Carbon Dioxide BUN 31 H Creatinine Glucose 146 H POC Glucose 151 H 133 H Lactic Acid Calcium Phosphorus Magnesium AST ALT Lactate Dehydrogenase Total Bilirubin Direct Bilirubin CK-MB (CK-2) C-Reactive Protein NT-Pro-B Natriuret Pep Total Protein Albumin Arterial Blood Glucose Urine WBC (Auto) Urine Creatinine 01/24/20 01/25/20 01/25/20 17:36 00:08 04:25 WBC RBC 3.50 L Hgb 8.7 L Hct 27.9 L MCHC 31 L RDW 18.2 H MCV 80 L MCH 25 L Lymph % (Auto) [place] % (Auto) 8.5 H [place] # Eos # Lymph # (Auto) [place] # (Auto) Eos # (Auto) Seg Neutrophils % Seg Neuts % (Manual) Baso # (Auto) Lymphocytes % (Manual) Monocytes % (Manual) Eosinophils % (Manual) Basophils % (Manual) Seg Neutrophils # Seg Neutrophils # Man Lymphocytes # (Manual) Monocytes # (Manual) Eosinophils # (Manual) Nucleated RBC % Basophils # (Manual) PT INR APTT Heparin Anti-Xa Level ABG pH POC ABG pO2 ABG pO2 ABG HCO3 ABG O2 Saturation ABG Base Excess POC ABG pCO2 ABG Hemoglobin ABG Oxyhemoglobin ABG Chloride ABG Glucose Oxyhemoglobin Sodium Potassium Chloride Carbon Dioxide BUN Creatinine Glucose POC Glucose 133 H 129 H Lactic Acid Calcium Phosphorus Magnesium AST ALT Lactate Dehydrogenase Total Bilirubin Direct Bilirubin CK-MB (CK-2) C-Reactive Protein NT-Pro-B Natriuret Pep Total Protein Albumin Arterial Blood Glucose Urine WBC (Auto) Urine Creatinine 01/25/20 01/25/20 01/25/20 04:25 05:38 11:52 WBC RBC Hgb Hct MCHC RDW MCV MCH Lymph % (Auto) [place] % (Auto) [place] # Eos # Lymph # (Auto) [place] # (Auto) Eos # (Auto) Seg Neutrophils % Seg Neuts % (Manual) Baso # (Auto) Lymphocytes % (Manual) Monocytes % (Manual) Eosinophils % (Manual) Basophils % (Manual) Seg Neutrophils # Seg Neutrophils # Man Lymphocytes # (Manual) Monocytes # (Manual) Eosinophils # (Manual) Nucleated RBC % Basophils # (Manual) PT INR APTT Heparin Anti-Xa Level ABG pH POC ABG pO2 ABG pO2 ABG HCO3 ABG O2 Saturation ABG Base Excess POC ABG pCO2 ABG Hemoglobin ABG Oxyhemoglobin ABG Chloride ABG Glucose Oxyhemoglobin Sodium Potassium Chloride Carbon Dioxide BUN 30 H Creatinine Glucose 134 H POC Glucose 129 H 134 H Lactic Acid Calcium Phosphorus Magnesium AST ALT Lactate Dehydrogenase Total Bilirubin Direct Bilirubin CK-MB (CK-2) C-Reactive Protein NT-Pro-B Natriuret Pep Total Protein Albumin Arterial Blood Glucose Urine WBC (Auto) Urine Creatinine 01/25/20 01/25/20 01/26/20 17:13 21:02 00:59 WBC RBC Hgb Hct MCHC RDW MCV MCH Lymph % (Auto) [place] % (Auto) [place] # Eos # Lymph # (Auto) [place] # (Auto) Eos # (Auto) Seg Neutrophils % Seg Neuts % (Manual) Baso # (Auto) Lymphocytes % (Manual) Monocytes % (Manual) Eosinophils % (Manual) Basophils % (Manual) Seg Neutrophils # Seg Neutrophils # Man Lymphocytes # (Manual) Monocytes # (Manual) Eosinophils # (Manual) Nucleated RBC % Basophils # (Manual) PT INR APTT Heparin Anti-Xa Level ABG pH POC ABG pO2 ABG pO2 57.5 L ABG HCO3 31.7 H ABG O2 Saturation 90.3 L ABG Base Excess 6.6 H POC ABG pCO2 ABG Hemoglobin 13.0 L ABG Oxyhemoglobin ABG Chloride ABG Glucose Oxyhemoglobin 87.5 L Sodium Potassium Chloride Carbon Dioxide BUN Creatinine Glucose POC Glucose 124 H 196 H Lactic Acid Calcium Phosphorus Magnesium AST ALT Lactate Dehydrogenase Total Bilirubin Direct Bilirubin CK-MB (CK-2) C-Reactive Protein NT-Pro-B Natriuret Pep Total Protein Albumin Arterial Blood Glucose Urine WBC (Auto) Urine Creatinine 01/26/20 01/26/20 01/26/20 03:20 05:46 12:46 WBC RBC Hgb 9.2 L Hct 29.4 L MCHC RDW MCV MCH Lymph % (Auto) [place] % (Auto) [place] # Eos # Lymph # (Auto) [place] # (Auto) Eos # (Auto) Seg Neutrophils % Seg Neuts % (Manual) Baso # (Auto) Lymphocytes % (Manual) Monocytes % (Manual) Eosinophils % (Manual) Basophils % (Manual) Seg Neutrophils # Seg Neutrophils # Man Lymphocytes # (Manual) Monocytes # (Manual) Eosinophils # (Manual) Nucleated RBC % Basophils # (Manual) PT INR APTT Heparin Anti-Xa Level ABG pH POC ABG pO2 ABG pO2 ABG HCO3 ABG O2 Saturation ABG Base Excess POC ABG pCO2 ABG Hemoglobin ABG Oxyhemoglobin ABG Chloride ABG Glucose Oxyhemoglobin Sodium Potassium Chloride Carbon Dioxide BUN Creatinine Glucose POC Glucose 141 H 122 H Lactic Acid Calcium Phosphorus Magnesium AST ALT Lactate Dehydrogenase Total Bilirubin Direct Bilirubin CK-MB (CK-2) C-Reactive Protein NT-Pro-B Natriuret Pep Total Protein Albumin Arterial Blood Glucose Urine WBC (Auto) Urine Creatinine 01/26/20 01/26/20 01/27/20 18:03 23:55 04:47 WBC RBC Hgb Hct MCHC RDW MCV MCH Lymph % (Auto) [place] % (Auto) [place] # Eos # Lymph # (Auto) [place] # (Auto) Eos # (Auto) Seg Neutrophils % Seg Neuts % (Manual) Baso # (Auto) Lymphocytes % (Manual) Monocytes % (Manual) Eosinophils % (Manual) Basophils % (Manual) Seg Neutrophils # Seg Neutrophils # Man Lymphocytes # (Manual) Monocytes # (Manual) Eosinophils # (Manual) Nucleated RBC % Basophils # (Manual) PT INR APTT Heparin Anti-Xa Level ABG pH POC ABG pO2 ABG pO2 ABG HCO3 ABG O2 Saturation ABG Base Excess POC ABG pCO2 ABG Hemoglobin ABG Oxyhemoglobin ABG Chloride ABG Glucose Oxyhemoglobin Sodium Potassium Chloride Carbon Dioxide BUN 30 H Creatinine 0.7 L Glucose 135 H POC Glucose 142 H 159 H Lactic Acid Calcium Phosphorus Magnesium AST ALT Lactate Dehydrogenase Total Bilirubin Direct Bilirubin CK-MB (CK-2) C-Reactive Protein NT-Pro-B Natriuret Pep Total Protein Albumin Arterial Blood Glucose Urine WBC (Auto) Urine Creatinine 01/27/20 01/27/20 01/27/20 05:43 12:06 17:16 WBC RBC Hgb Hct MCHC RDW MCV MCH Lymph % (Auto) [place] % (Auto) [place] # Eos # Lymph # (Auto) [place] # (Auto) Eos # (Auto) Seg Neutrophils % Seg Neuts % (Manual) Baso # (Auto) Lymphocytes % (Manual) Monocytes % (Manual) Eosinophils % (Manual) Basophils % (Manual) Seg Neutrophils # Seg Neutrophils # Man Lymphocytes # (Manual) Monocytes # (Manual) Eosinophils # (Manual) Nucleated RBC % Basophils # (Manual) PT INR APTT Heparin Anti-Xa Level ABG pH POC ABG pO2 ABG pO2 ABG HCO3 ABG O2 Saturation ABG Base Excess POC ABG pCO2 ABG Hemoglobin ABG Oxyhemoglobin ABG Chloride ABG Glucose Oxyhemoglobin Sodium Potassium Chloride Carbon Dioxide BUN Creatinine Glucose POC Glucose 143 H 142 H 128 H Lactic Acid Calcium Phosphorus Magnesium AST ALT Lactate Dehydrogenase Total Bilirubin Direct Bilirubin CK-MB (CK-2) C-Reactive Protein NT-Pro-B Natriuret Pep Total Protein Albumin Arterial Blood Glucose Urine WBC (Auto) Urine Creatinine 01/27/20 01/28/20 01/28/20 23:55 04:37 05:55 WBC RBC Hgb 9.4 L Hct 29.9 L MCHC RDW MCV MCH Lymph % (Auto) [place] % (Auto) [place] # Eos # Lymph # (Auto) [place] # (Auto) Eos # (Auto) Seg Neutrophils % Seg Neuts % (Manual) Baso # (Auto) Lymphocytes % (Manual) Monocytes % (Manual) Eosinophils % (Manual) Basophils % (Manual) Seg Neutrophils # Seg Neutrophils # Man Lymphocytes # (Manual) Monocytes # (Manual) Eosinophils # (Manual) Nucleated RBC % Basophils # (Manual) PT INR APTT Heparin Anti-Xa Level ABG pH POC ABG pO2 ABG pO2 ABG HCO3 ABG O2 Saturation ABG Base Excess POC ABG pCO2 ABG Hemoglobin ABG Oxyhemoglobin ABG Chloride ABG Glucose Oxyhemoglobin Sodium Potassium Chloride Carbon Dioxide BUN Creatinine Glucose POC Glucose 166 H 169 H Lactic Acid Calcium Phosphorus Magnesium AST ALT Lactate Dehydrogenase Total Bilirubin Direct Bilirubin CK-MB (CK-2) C-Reactive Protein NT-Pro-B Natriuret Pep Total Protein Albumin Arterial Blood Glucose Urine WBC (Auto) Urine Creatinine 01/28/20 01/28/20 01/28/20 11:58 17:26 23:46 WBC RBC Hgb Hct MCHC RDW MCV MCH Lymph % (Auto) [place] % (Auto) [place] # Eos # Lymph # (Auto) [place] # (Auto) Eos # (Auto) Seg Neutrophils % Seg Neuts % (Manual) Baso # (Auto) Lymphocytes % (Manual) Monocytes % (Manual) Eosinophils % (Manual) Basophils % (Manual) Seg Neutrophils # Seg Neutrophils # Man Lymphocytes # (Manual) Monocytes # (Manual) Eosinophils # (Manual) Nucleated RBC % Basophils # (Manual) PT INR APTT Heparin Anti-Xa Level ABG pH POC ABG pO2 ABG pO2 ABG HCO3 ABG O2 Saturation ABG Base Excess POC ABG pCO2 ABG Hemoglobin ABG Oxyhemoglobin ABG Chloride ABG Glucose Oxyhemoglobin Sodium Potassium Chloride Carbon Dioxide BUN Creatinine Glucose POC Glucose 130 H 126 H 150 H Lactic Acid Calcium Phosphorus Magnesium AST ALT Lactate Dehydrogenase Total Bilirubin Direct Bilirubin CK-MB (CK-2) C-Reactive Protein NT-Pro-B Natriuret Pep Total Protein Albumin Arterial Blood Glucose Urine WBC (Auto) Urine Creatinine 01/29/20 01/29/20 01/29/20 04:55 06:00 12:28 WBC RBC Hgb Hct MCHC RDW MCV MCH Lymph % (Auto) [place] % (Auto) [place] # Eos # Lymph # (Auto) [place] # (Auto) Eos # (Auto) Seg Neutrophils % Seg Neuts % (Manual) Baso # (Auto) Lymphocytes % (Manual) Monocytes % (Manual) Eosinophils % (Manual) Basophils % (Manual) Seg Neutrophils # Seg Neutrophils # Man Lymphocytes # (Manual) Monocytes # (Manual) Eosinophils # (Manual) Nucleated RBC % Basophils # (Manual) PT INR APTT Heparin Anti-Xa Level ABG pH POC ABG pO2 ABG pO2 ABG HCO3 ABG O2 Saturation ABG Base Excess POC ABG pCO2 ABG Hemoglobin ABG Oxyhemoglobin ABG Chloride ABG Glucose Oxyhemoglobin Sodium Potassium Chloride Carbon Dioxide 34 H BUN Creatinine 0.6 L Glucose 152 H POC Glucose 157 H 156 H Lactic Acid Calcium Phosphorus Magnesium AST ALT Lactate Dehydrogenase Total Bilirubin Direct Bilirubin CK-MB (CK-2) C-Reactive Protein NT-Pro-B Natriuret Pep Total Protein Albumin Arterial Blood Glucose Urine WBC (Auto) Urine Creatinine 01/29/20 01/30/20 01/30/20 19:06 00:29 05:39 WBC RBC Hgb Hct MCHC RDW MCV MCH Lymph % (Auto) [place] % (Auto) [place] # Eos # Lymph # (Auto) [place] # (Auto) Eos # (Auto) Seg Neutrophils % Seg Neuts % (Manual) Baso # (Auto) Lymphocytes % (Manual) Monocytes % (Manual) Eosinophils % (Manual) Basophils % (Manual) Seg Neutrophils # Seg Neutrophils # Man Lymphocytes # (Manual) Monocytes # (Manual) Eosinophils # (Manual) Nucleated RBC % Basophils # (Manual) PT INR APTT Heparin Anti-Xa Level ABG pH POC ABG pO2 ABG pO2 ABG HCO3 ABG O2 Saturation ABG Base Excess POC ABG pCO2 ABG Hemoglobin ABG Oxyhemoglobin ABG Chloride ABG Glucose Oxyhemoglobin Sodium Potassium Chloride Carbon Dioxide BUN Creatinine Glucose POC Glucose 152 H 132 H 159 H Lactic Acid Calcium Phosphorus Magnesium AST ALT Lactate Dehydrogenase Total Bilirubin Direct Bilirubin CK-MB (CK-2) C-Reactive Protein NT-Pro-B Natriuret Pep Total Protein Albumin Arterial Blood Glucose Urine WBC (Auto) Urine Creatinine 01/30/20 01/30/20 01/30/20 12:27 17:42 23:28 WBC RBC Hgb Hct MCHC RDW MCV MCH Lymph % (Auto) [place] % (Auto) [place] # Eos # Lymph # (Auto) [place] # (Auto) Eos # (Auto) Seg Neutrophils % Seg Neuts % (Manual) Baso # (Auto) Lymphocytes % (Manual) Monocytes % (Manual) Eosinophils % (Manual) Basophils % (Manual) Seg Neutrophils # Seg Neutrophils # Man Lymphocytes # (Manual) Monocytes # (Manual) Eosinophils # (Manual) Nucleated RBC % Basophils # (Manual) PT INR APTT Heparin Anti-Xa Level ABG pH POC ABG pO2 ABG pO2 ABG HCO3 ABG O2 Saturation ABG Base Excess POC ABG pCO2 ABG Hemoglobin ABG Oxyhemoglobin ABG Chloride ABG Glucose Oxyhemoglobin Sodium Potassium Chloride Carbon Dioxide BUN Creatinine Glucose POC Glucose 151 H 144 H 164 H Lactic Acid Calcium Phosphorus Magnesium AST ALT Lactate Dehydrogenase Total Bilirubin Direct Bilirubin CK-MB (CK-2) C-Reactive Protein NT-Pro-B Natriuret Pep Total Protein Albumin Arterial Blood Glucose Urine WBC (Auto) Urine Creatinine 01/31/20 01/31/20 01/31/20 05:51 11:51 18:06 WBC RBC Hgb Hct MCHC RDW MCV MCH Lymph % (Auto) [place] % (Auto) [place] # Eos # Lymph # (Auto) [place] # (Auto) Eos # (Auto) Seg Neutrophils % Seg Neuts % (Manual) Baso # (Auto) Lymphocytes % (Manual) Monocytes % (Manual) Eosinophils % (Manual) Basophils % (Manual) Seg Neutrophils # Seg Neutrophils # Man Lymphocytes # (Manual) Monocytes # (Manual) Eosinophils # (Manual) Nucleated RBC % Basophils # (Manual) PT INR APTT Heparin Anti-Xa Level ABG pH POC ABG pO2 ABG pO2 ABG HCO3 ABG O2 Saturation ABG Base Excess POC ABG pCO2 ABG Hemoglobin ABG Oxyhemoglobin ABG Chloride ABG Glucose Oxyhemoglobin Sodium Potassium Chloride Carbon Dioxide BUN Creatinine Glucose POC Glucose 131 H 167 H 210 H Lactic Acid Calcium Phosphorus Magnesium AST ALT Lactate Dehydrogenase Total Bilirubin Direct Bilirubin CK-MB (CK-2) C-Reactive Protein NT-Pro-B Natriuret Pep Total Protein Albumin Arterial Blood Glucose Urine WBC (Auto) Urine Creatinine 01/31/20 01/31/20 02/01/20 19:24 Unknown 00:34 WBC RBC Hgb Hct MCHC RDW MCV MCH Lymph % (Auto) [place] % (Auto) [place] # Eos # Lymph # (Auto) [place] # (Auto) Eos # (Auto) Seg Neutrophils % Seg Neuts % (Manual) Baso # (Auto) Lymphocytes % (Manual) Monocytes % (Manual) Eosinophils % (Manual) Basophils % (Manual) Seg Neutrophils # Seg Neutrophils # Man Lymphocytes # (Manual) Monocytes # (Manual) Eosinophils # (Manual) Nucleated RBC % Basophils # (Manual) PT INR APTT Heparin Anti-Xa Level ABG pH POC ABG pO2 ABG pO2 ABG HCO3 ABG O2 Saturation ABG Base Excess POC ABG pCO2 ABG Hemoglobin ABG Oxyhemoglobin ABG Chloride ABG Glucose Oxyhemoglobin Sodium Potassium Chloride 95.3 L Carbon Dioxide 33 H BUN 36 H Creatinine Glucose 187 H POC Glucose 116 H Lactic Acid Calcium Phosphorus Magnesium AST ALT Lactate Dehydrogenase Total Bilirubin Direct Bilirubin CK-MB (CK-2) C-Reactive Protein NT-Pro-B Natriuret Pep Total Protein Albumin Arterial Blood Glucose Urine WBC (Auto) Urine Creatinine 57.4 H 02/01/20 02/01/20 02/01/20 05:24 10:40 12:29 WBC RBC Hgb Hct MCHC RDW MCV MCH Lymph % (Auto) [place] % (Auto) [place] # Eos # Lymph # (Auto) [place] # (Auto) Eos # (Auto) Seg Neutrophils % Seg Neuts % (Manual) Baso # (Auto) Lymphocytes % (Manual) Monocytes % (Manual) Eosinophils % (Manual) Basophils % (Manual) Seg Neutrophils # Seg Neutrophils # Man Lymphocytes # (Manual) Monocytes # (Manual) Eosinophils # (Manual) Nucleated RBC % Basophils # (Manual) PT INR APTT Heparin Anti-Xa Level ABG pH POC ABG pO2 ABG pO2 ABG HCO3 ABG O2 Saturation ABG Base Excess POC ABG pCO2 ABG Hemoglobin ABG Oxyhemoglobin ABG Chloride ABG Glucose Oxyhemoglobin Sodium Potassium Chloride Carbon Dioxide BUN Creatinine Glucose POC Glucose 142 H 165 H 151 H Lactic Acid Calcium Phosphorus Magnesium AST ALT Lactate Dehydrogenase Total Bilirubin Direct Bilirubin CK-MB (CK-2) C-Reactive Protein NT-Pro-B Natriuret Pep Total Protein Albumin Arterial Blood Glucose Urine WBC (Auto) Urine Creatinine 02/01/20 02/01/20 02/02/20 17:16 23:23 06:36 WBC RBC Hgb Hct MCHC RDW MCV MCH Lymph % (Auto) [place] % (Auto) [place] # Eos # Lymph # (Auto) [place] # (Auto) Eos # (Auto) Seg Neutrophils % Seg Neuts % (Manual) Baso # (Auto) Lymphocytes % (Manual) Monocytes % (Manual) Eosinophils % (Manual) Basophils % (Manual) Seg Neutrophils # Seg Neutrophils # Man Lymphocytes # (Manual) Monocytes # (Manual) Eosinophils # (Manual) Nucleated RBC % Basophils # (Manual) PT INR APTT Heparin Anti-Xa Level ABG pH POC ABG pO2 ABG pO2 ABG HCO3 ABG O2 Saturation ABG Base Excess POC ABG pCO2 ABG Hemoglobin ABG Oxyhemoglobin ABG Chloride ABG Glucose Oxyhemoglobin Sodium Potassium Chloride Carbon Dioxide BUN Creatinine Glucose POC Glucose 137 H 145 H 181 H Lactic Acid Calcium Phosphorus Magnesium AST ALT Lactate Dehydrogenase Total Bilirubin Direct Bilirubin CK-MB (CK-2) C-Reactive Protein NT-Pro-B Natriuret Pep Total Protein Albumin Arterial Blood Glucose Urine WBC (Auto) Urine Creatinine 02/02/20 02/02/20 02/02/20 10:01 12:05 17:54 WBC RBC Hgb Hct MCHC RDW MCV MCH Lymph % (Auto) [place] % (Auto) [place] # Eos # Lymph # (Auto) [place] # (Auto) Eos # (Auto) Seg Neutrophils % Seg Neuts % (Manual) Baso # (Auto) Lymphocytes % (Manual) Monocytes % (Manual) Eosinophils % (Manual) Basophils % (Manual) Seg Neutrophils # Seg Neutrophils # Man Lymphocytes # (Manual) Monocytes # (Manual) Eosinophils # (Manual) Nucleated RBC % Basophils # (Manual) PT INR APTT Heparin Anti-Xa Level ABG pH POC ABG pO2 ABG pO2 ABG HCO3 ABG O2 Saturation ABG Base Excess POC ABG pCO2 ABG Hemoglobin ABG Oxyhemoglobin ABG Chloride ABG Glucose Oxyhemoglobin Sodium Potassium Chloride 95.3 L Carbon Dioxide BUN 44 H Creatinine Glucose 234 H POC Glucose 184 H 127 H Lactic Acid Calcium Phosphorus Magnesium AST 363 H ALT 457 H Lactate Dehydrogenase Total Bilirubin Direct Bilirubin CK-MB (CK-2) C-Reactive Protein NT-Pro-B Natriuret Pep Total Protein Albumin 3.0 L Arterial Blood Glucose Urine WBC (Auto) Urine Creatinine 02/02/20 02/03/20 02/03/20 23:47 05:32 07:04 WBC 13.0 H RBC Hgb 9.5 L Hct 30.8 L MCHC 31 L RDW 19.6 H MCV 81 L MCH 25 L Lymph % (Auto) [place] % (Auto) 9.4 H [place] # Eos # Lymph # (Auto) [place] # (Auto) 1.2 H Eos # (Auto) Seg Neutrophils % 72.3 H Seg Neuts % (Manual) Baso # (Auto) Lymphocytes % (Manual) Monocytes % (Manual) Eosinophils % (Manual) Basophils % (Manual) Seg Neutrophils # 9.4 H Seg Neutrophils # Man Lymphocytes # (Manual) Monocytes # (Manual) Eosinophils # (Manual) Nucleated RBC % Basophils # (Manual) PT INR APTT Heparin Anti-Xa Level ABG pH POC ABG pO2 ABG pO2 ABG HCO3 ABG O2 Saturation ABG Base Excess POC ABG pCO2 ABG Hemoglobin ABG Oxyhemoglobin ABG Chloride ABG Glucose Oxyhemoglobin Sodium Potassium Chloride Carbon Dioxide BUN Creatinine Glucose POC Glucose 124 H 129 H Lactic Acid Calcium Phosphorus Magnesium AST ALT Lactate Dehydrogenase Total Bilirubin Direct Bilirubin CK-MB (CK-2) C-Reactive Protein NT-Pro-B Natriuret Pep Total Protein Albumin Arterial Blood Glucose Urine WBC (Auto) Urine Creatinine 02/03/20 02/03/20 02/03/20 07:04 11:32 12:49 WBC RBC Hgb Hct MCHC RDW MCV MCH Lymph % (Auto) [place] % (Auto) [place] # Eos # Lymph # (Auto) [place] # (Auto) Eos # (Auto) Seg Neutrophils % Seg Neuts % (Manual) Baso # (Auto) Lymphocytes % (Manual) Monocytes % (Manual) Eosinophils % (Manual) Basophils % (Manual) Seg Neutrophils # Seg Neutrophils # Man Lymphocytes # (Manual) Monocytes # (Manual) Eosinophils # (Manual) Nucleated RBC % Basophils # (Manual) PT INR APTT Heparin Anti-Xa Level ABG pH POC ABG pO2 ABG pO2 ABG HCO3 ABG O2 Saturation ABG Base Excess POC ABG pCO2 ABG Hemoglobin ABG Oxyhemoglobin ABG Chloride ABG Glucose Oxyhemoglobin Sodium Potassium Chloride 97.9 L Carbon Dioxide 33 H BUN 39 H Creatinine Glucose 119 H POC Glucose 138 H Lactic Acid Calcium Phosphorus Magnesium 2.60 H AST ALT Lactate Dehydrogenase Total Bilirubin Direct Bilirubin CK-MB (CK-2) C-Reactive Protein NT-Pro-B Natriuret Pep Total Protein Albumin Arterial Blood Glucose Urine WBC (Auto) Urine Creatinine 02/03/20 02/04/20 02/04/20 18:28 16:24 16:24 WBC RBC 3.38 L Hgb 8.6 L Hct 26.9 L MCHC RDW 19.5 H MCV 80 L MCH 26 L Lymph % (Auto) [place] % (Auto) [place] # Eos # Lymph # (Auto) [place] # (Auto) Eos # (Auto) Seg Neutrophils % Seg Neuts % (Manual) Baso # (Auto) Lymphocytes % (Manual) Monocytes % (Manual) Eosinophils % (Manual) Basophils % (Manual) Seg Neutrophils # Seg Neutrophils # Man Lymphocytes # (Manual) Monocytes # (Manual) Eosinophils # (Manual) Nucleated RBC % Basophils # (Manual) PT INR APTT Heparin Anti-Xa Level ABG pH POC ABG pO2 ABG pO2 ABG HCO3 ABG O2 Saturation ABG Base Excess POC ABG pCO2 ABG Hemoglobin ABG Oxyhemoglobin ABG Chloride ABG Glucose Oxyhemoglobin Sodium Potassium 3.4 L Chloride Carbon Dioxide 31 H BUN 37 H Creatinine Glucose 70 L POC Glucose 118 H Lactic Acid Calcium Phosphorus Magnesium AST 169 H ALT 394 H Lactate Dehydrogenase Total Bilirubin 1.50 H Direct Bilirubin CK-MB (CK-2) C-Reactive Protein NT-Pro-B Natriuret Pep Total Protein Albumin 2.9 L Arterial Blood Glucose Urine WBC (Auto) Urine Creatinine 02/05/20 02/05/20 02/05/20 00:41 06:37 17:14 WBC RBC Hgb Hct MCHC RDW MCV MCH Lymph % (Auto) [place] % (Auto) [place] # Eos # Lymph # (Auto) [place] # (Auto) Eos # (Auto) Seg Neutrophils % Seg Neuts % (Manual) Baso # (Auto) Lymphocytes % (Manual) Monocytes % (Manual) Eosinophils % (Manual) Basophils % (Manual) Seg Neutrophils # Seg Neutrophils # Man Lymphocytes # (Manual) Monocytes # (Manual) Eosinophils # (Manual) Nucleated RBC % Basophils # (Manual) PT INR APTT Heparin Anti-Xa Level ABG pH POC ABG pO2 ABG pO2 ABG HCO3 ABG O2 Saturation ABG Base Excess POC ABG pCO2 ABG Hemoglobin ABG Oxyhemoglobin ABG Chloride ABG Glucose Oxyhemoglobin Sodium Potassium 3.1 L Chloride Carbon Dioxide 35 H BUN 32 H Creatinine 0.7 L Glucose POC Glucose 69 L 127 H Lactic Acid Calcium Phosphorus Magnesium AST 134 H ALT 352 H Lactate Dehydrogenase Total Bilirubin 1.60 H Direct Bilirubin CK-MB (CK-2) C-Reactive Protein NT-Pro-B Natriuret Pep Total Protein Albumin 2.9 L Arterial Blood Glucose Urine WBC (Auto) Urine Creatinine 02/05/20 02/06/20 02/06/20 23:43 05:32 08:01 WBC RBC Hgb Hct MCHC RDW MCV MCH Lymph % (Auto) [place] % (Auto) [place] # Eos # Lymph # (Auto) [place] # (Auto) Eos # (Auto) Seg Neutrophils % Seg Neuts % (Manual) Baso # (Auto) Lymphocytes % (Manual) Monocytes % (Manual) Eosinophils % (Manual) Basophils % (Manual) Seg Neutrophils # Seg Neutrophils # Man Lymphocytes # (Manual) Monocytes # (Manual) Eosinophils # (Manual) Nucleated RBC % Basophils # (Manual) PT INR APTT Heparin Anti-Xa Level ABG pH POC ABG pO2 ABG pO2 ABG HCO3 ABG O2 Saturation ABG Base Excess POC ABG pCO2 ABG Hemoglobin ABG Oxyhemoglobin ABG Chloride ABG Glucose Oxyhemoglobin Sodium Potassium Chloride Carbon Dioxide BUN 40 H Creatinine Glucose 132 H POC Glucose 129 H 131 H Lactic Acid Calcium Phosphorus Magnesium AST ALT Lactate Dehydrogenase Total Bilirubin Direct Bilirubin CK-MB (CK-2) C-Reactive Protein NT-Pro-B Natriuret Pep Total Protein Albumin Arterial Blood Glucose Urine WBC (Auto) Urine Creatinine 02/06/20 02/06/20 02/06/20 11:51 16:28 17:32 WBC RBC Hgb Hct MCHC RDW MCV MCH Lymph % (Auto) [place] % (Auto) [place] # Eos # Lymph # (Auto) [place] # (Auto) Eos # (Auto) Seg Neutrophils % Seg Neuts % (Manual) Baso # (Auto) Lymphocytes % (Manual) Monocytes % (Manual) Eosinophils % (Manual) Basophils % (Manual) Seg Neutrophils # Seg Neutrophils # Man Lymphocytes # (Manual) Monocytes # (Manual) Eosinophils # (Manual) Nucleated RBC % Basophils # (Manual) PT INR APTT Heparin Anti-Xa Level ABG pH POC ABG pO2 ABG pO2 ABG HCO3 ABG O2 Saturation ABG Base Excess POC ABG pCO2 ABG Hemoglobin ABG Oxyhemoglobin ABG Chloride ABG Glucose Oxyhemoglobin Sodium Potassium Chloride Carbon Dioxide BUN Creatinine Glucose POC Glucose 167 H 129 H Lactic Acid Calcium Phosphorus Magnesium AST 824 H ALT 948 H Lactate Dehydrogenase Total Bilirubin 1.70 H Direct Bilirubin 1.2 H CK-MB (CK-2) C-Reactive Protein NT-Pro-B Natriuret Pep Total Protein Albumin 2.9 L Arterial Blood Glucose Urine WBC (Auto) Urine Creatinine 02/07/20 02/07/20 02/07/20 00:11 04:57 04:57 WBC RBC Hgb 9.2 L Hct 29.7 L MCHC 31 L RDW 20.2 H MCV 80 L MCH 25 L Lymph % (Auto) [place] % (Auto) [place] # Eos # Lymph # (Auto) [place] # (Auto) Eos # (Auto) Seg Neutrophils % Seg Neuts % (Manual) Baso # (Auto) Lymphocytes % (Manual) Monocytes % (Manual) Eosinophils % (Manual) Basophils % (Manual) Seg Neutrophils # Seg Neutrophils # Man Lymphocytes # (Manual) Monocytes # (Manual) Eosinophils # (Manual) Nucleated RBC % Basophils # (Manual) PT INR APTT Heparin Anti-Xa Level ABG pH POC ABG pO2 ABG pO2 ABG HCO3 ABG O2 Saturation ABG Base Excess POC ABG pCO2 ABG Hemoglobin ABG Oxyhemoglobin ABG Chloride ABG Glucose Oxyhemoglobin Sodium Potassium 3.4 L D Chloride Carbon Dioxide 32 H BUN 39 H Creatinine Glucose 106 H POC Glucose 121 H Lactic Acid Calcium Phosphorus Magnesium AST ALT Lactate Dehydrogenase Total Bilirubin Direct Bilirubin CK-MB (CK-2) C-Reactive Protein NT-Pro-B Natriuret Pep Total Protein Albumin Arterial Blood Glucose Urine WBC (Auto) Urine Creatinine 02/07/20 02/07/20 02/07/20 15:03 15:03 17:11 WBC RBC Hgb Hct MCHC RDW MCV MCH Lymph % (Auto) [place] % (Auto) [place] # Eos # Lymph # (Auto) [place] # (Auto) Eos # (Auto) Seg Neutrophils % Seg Neuts % (Manual) Baso # (Auto) Lymphocytes % (Manual) Monocytes % (Manual) Eosinophils % (Manual) Basophils % (Manual) Seg Neutrophils # Seg Neutrophils # Man Lymphocytes # (Manual) Monocytes # (Manual) Eosinophils # (Manual) Nucleated RBC % Basophils # (Manual) PT 27.0 H INR 2.46 H APTT Heparin Anti-Xa Level ABG pH POC ABG pO2 ABG pO2 ABG HCO3 ABG O2 Saturation ABG Base Excess POC ABG pCO2 ABG Hemoglobin ABG Oxyhemoglobin ABG Chloride ABG Glucose Oxyhemoglobin Sodium Potassium Chloride Carbon Dioxide BUN Creatinine Glucose POC Glucose 109 H Lactic Acid Calcium Phosphorus Magnesium AST 424 H ALT 796 H Lactate Dehydrogenase Total Bilirubin 1.60 H Direct Bilirubin 1.2 H CK-MB (CK-2) C-Reactive Protein NT-Pro-B Natriuret Pep Total Protein Albumin 2.9 L Arterial Blood Glucose Urine WBC (Auto) Urine Creatinine 02/08/20 02/08/20 02/08/20 12:14 17:44 19:00 WBC RBC Hgb Hct MCHC RDW MCV MCH Lymph % (Auto) [place] % (Auto) [place] # Eos # Lymph # (Auto) [place] # (Auto) Eos # (Auto) Seg Neutrophils % Seg Neuts % (Manual) Baso # (Auto) Lymphocytes % (Manual) Monocytes % (Manual) Eosinophils % (Manual) Basophils % (Manual) Seg Neutrophils # Seg Neutrophils # Man Lymphocytes # (Manual) Monocytes # (Manual) Eosinophils # (Manual) Nucleated RBC % Basophils # (Manual) PT INR APTT Heparin Anti-Xa Level ABG pH POC ABG pO2 ABG pO2 ABG HCO3 ABG O2 Saturation ABG Base Excess POC ABG pCO2 ABG Hemoglobin ABG Oxyhemoglobin ABG Chloride ABG Glucose Oxyhemoglobin Sodium Potassium Chloride Carbon Dioxide BUN Creatinine Glucose POC Glucose 111 H 107 H Lactic Acid Calcium Phosphorus Magnesium AST 309 H ALT 650 H Lactate Dehydrogenase Total Bilirubin 1.30 H Direct Bilirubin 0.9 H CK-MB (CK-2) C-Reactive Protein NT-Pro-B Natriuret Pep Total Protein 6.2 L Albumin 2.7 L Arterial Blood Glucose Urine WBC (Auto) Urine Creatinine 02/09/20 02/09/20 02/09/20 05:41 12:28 18:07 WBC RBC Hgb Hct MCHC RDW MCV MCH Lymph % (Auto) [place] % (Auto) [place] # Eos # Lymph # (Auto) [place] # (Auto) Eos # (Auto) Seg Neutrophils % Seg Neuts % (Manual) Baso # (Auto) Lymphocytes % (Manual) Monocytes % (Manual) Eosinophils % (Manual) Basophils % (Manual) Seg Neutrophils # Seg Neutrophils # Man Lymphocytes # (Manual) Monocytes # (Manual) Eosinophils # (Manual) Nucleated RBC % Basophils # (Manual) PT INR APTT Heparin Anti-Xa Level ABG pH POC ABG pO2 ABG pO2 ABG HCO3 ABG O2 Saturation ABG Base Excess POC ABG pCO2 ABG Hemoglobin ABG Oxyhemoglobin ABG Chloride ABG Glucose Oxyhemoglobin Sodium Potassium Chloride Carbon Dioxide BUN Creatinine Glucose POC Glucose 113 H 140 H 143 H Lactic Acid Calcium Phosphorus Magnesium AST ALT Lactate Dehydrogenase Total Bilirubin Direct Bilirubin CK-MB (CK-2) C-Reactive Protein NT-Pro-B Natriuret Pep Total Protein Albumin Arterial Blood Glucose Urine WBC (Auto) Urine Creatinine 02/09/20 02/09/20 02/10/20 21:40 23:45 06:00 WBC RBC Hgb Hct MCHC RDW MCV MCH Lymph % (Auto) [place] % (Auto) [place] # Eos # Lymph # (Auto) [place] # (Auto) Eos # (Auto) Seg Neutrophils % Seg Neuts % (Manual) Baso # (Auto) Lymphocytes % (Manual) Monocytes % (Manual) Eosinophils % (Manual) Basophils % (Manual) Seg Neutrophils # Seg Neutrophils # Man Lymphocytes # (Manual) Monocytes # (Manual) Eosinophils # (Manual) Nucleated RBC % Basophils # (Manual) PT INR APTT Heparin Anti-Xa Level ABG pH POC ABG pO2 ABG pO2 59.8 L ABG HCO3 33.3 H ABG O2 Saturation 88.9 L ABG Base Excess 7.4 H POC ABG pCO2 ABG Hemoglobin 10.4 L ABG Oxyhemoglobin ABG Chloride ABG Glucose Oxyhemoglobin 86.3 L Sodium Potassium Chloride Carbon Dioxide BUN Creatinine Glucose POC Glucose 127 H 114 H Lactic Acid Calcium Phosphorus Magnesium AST ALT Lactate Dehydrogenase Total Bilirubin Direct Bilirubin CK-MB (CK-2) C-Reactive Protein NT-Pro-B Natriuret Pep Total Protein Albumin Arterial Blood Glucose Urine WBC (Auto) Urine Creatinine 02/10/20 02/10/20 02/10/20 07:40 07:40 13:38 WBC 11.5 H RBC Hgb 10.6 L Hct 34.7 L MCHC 31 L RDW 19.8 H MCV 79 L MCH 24 L Lymph % (Auto) [place] % (Auto) 9.2 H [place] # Eos # Lymph # (Auto) [place] # (Auto) 1.1 H Eos # (Auto) Seg Neutrophils % Seg Neuts % (Manual) Baso # (Auto) Lymphocytes % (Manual) Monocytes % (Manual) Eosinophils % (Manual) Basophils % (Manual) Seg Neutrophils # Seg Neutrophils # Man Lymphocytes # (Manual) Monocytes # (Manual) Eosinophils # (Manual) Nucleated RBC % Basophils # (Manual) PT INR APTT Heparin Anti-Xa Level ABG pH POC ABG pO2 ABG pO2 ABG HCO3 ABG O2 Saturation ABG Base Excess POC ABG pCO2 ABG Hemoglobin ABG Oxyhemoglobin ABG Chloride ABG Glucose Oxyhemoglobin Sodium 151 H Potassium Chloride 107.2 H Carbon Dioxide 36 H BUN 25 H Creatinine 0.7 L Glucose 114 H POC Glucose 116 H Lactic Acid Calcium Phosphorus Magnesium 2.40 H AST ALT Lactate Dehydrogenase Total Bilirubin Direct Bilirubin CK-MB (CK-2) C-Reactive Protein NT-Pro-B Natriuret Pep Total Protein Albumin Arterial Blood Glucose Urine WBC (Auto) Urine Creatinine 02/10/20 02/11/20 02/11/20 17:44 05:47 12:21 WBC RBC Hgb Hct MCHC RDW MCV MCH Lymph % (Auto) [place] % (Auto) [place] # Eos # Lymph # (Auto) [place] # (Auto) Eos # (Auto) Seg Neutrophils % Seg Neuts % (Manual) Baso # (Auto) Lymphocytes % (Manual) Monocytes % (Manual) Eosinophils % (Manual) Basophils % (Manual) Seg Neutrophils # Seg Neutrophils # Man Lymphocytes # (Manual) Monocytes # (Manual) Eosinophils # (Manual) Nucleated RBC % Basophils # (Manual) PT INR APTT Heparin Anti-Xa Level ABG pH POC ABG pO2 ABG pO2 ABG HCO3 ABG O2 Saturation ABG Base Excess POC ABG pCO2 ABG Hemoglobin ABG Oxyhemoglobin ABG Chloride ABG Glucose Oxyhemoglobin Sodium Potassium Chloride Carbon Dioxide BUN Creatinine Glucose POC Glucose 139 H 173 H 143 H Lactic Acid Calcium Phosphorus Magnesium AST ALT Lactate Dehydrogenase Total Bilirubin Direct Bilirubin CK-MB (CK-2) C-Reactive Protein NT-Pro-B Natriuret Pep Total Protein Albumin Arterial Blood Glucose Urine WBC (Auto) Urine Creatinine 02/11/20 02/11/20 02/12/20 13:43 14:11 00:15 WBC RBC Hgb Hct MCHC RDW MCV MCH Lymph % (Auto) [place] % (Auto) [place] # Eos # Lymph # (Auto) [place] # (Auto) Eos # (Auto) Seg Neutrophils % Seg Neuts % (Manual) Baso # (Auto) Lymphocytes % (Manual) Monocytes % (Manual) Eosinophils % (Manual) Basophils % (Manual) Seg Neutrophils # Seg Neutrophils # Man Lymphocytes # (Manual) Monocytes # (Manual) Eosinophils # (Manual) Nucleated RBC % Basophils # (Manual) PT INR APTT Heparin Anti-Xa Level ABG pH 7.502 H POC ABG pO2 77.7 L ABG pO2 ABG HCO3 ABG O2 Saturation ABG Base Excess POC ABG pCO2 ABG Hemoglobin 11.1 L ABG Oxyhemoglobin ABG Chloride 108.0 H ABG Glucose 151 H Oxyhemoglobin Sodium Potassium Chloride Carbon Dioxide BUN Creatinine Glucose POC Glucose 130 H 125 H Lactic Acid Calcium Phosphorus Magnesium AST ALT Lactate Dehydrogenase Total Bilirubin Direct Bilirubin CK-MB (CK-2) C-Reactive Protein NT-Pro-B Natriuret Pep Total Protein Albumin Arterial Blood Glucose 151 H Urine WBC (Auto) Urine Creatinine 02/12/20 02/12/20 02/12/20 04:56 04:56 17:42 WBC RBC Hgb 9.9 L Hct 31.8 L MCHC 31 L RDW 19.4 H MCV 79 L MCH 25 L Lymph % (Auto) [place] % (Auto) 10.3 H [place] # Eos # Lymph # (Auto) [place] # (Auto) 1.0 H Eos # (Auto) Seg Neutrophils % Seg Neuts % (Manual) Baso # (Auto) Lymphocytes % (Manual) Monocytes % (Manual) Eosinophils % (Manual) Basophils % (Manual) Seg Neutrophils # Seg Neutrophils # Man Lymphocytes # (Manual) Monocytes # (Manual) Eosinophils # (Manual) Nucleated RBC % Basophils # (Manual) PT INR APTT Heparin Anti-Xa Level ABG pH POC ABG pO2 ABG pO2 ABG HCO3 ABG O2 Saturation ABG Base Excess POC ABG pCO2 ABG Hemoglobin ABG Oxyhemoglobin ABG Chloride ABG Glucose Oxyhemoglobin Sodium 149 H Potassium Chloride 108.6 H Carbon Dioxide BUN 28 H Creatinine 0.7 L Glucose 108 H POC Glucose 113 H Lactic Acid Calcium Phosphorus Magnesium AST ALT Lactate Dehydrogenase Total Bilirubin Direct Bilirubin CK-MB (CK-2) C-Reactive Protein NT-Pro-B Natriuret Pep Total Protein Albumin Arterial Blood Glucose Urine WBC (Auto) Urine Creatinine 02/13/20 02/13/20 02/13/20 00:39 05:36 12:25 WBC RBC Hgb Hct MCHC RDW MCV MCH Lymph % (Auto) [place] % (Auto) [place] # Eos # Lymph # (Auto) [place] # (Auto) Eos # (Auto) Seg Neutrophils % Seg Neuts % (Manual) Baso # (Auto) Lymphocytes % (Manual) Monocytes % (Manual) Eosinophils % (Manual) Basophils % (Manual) Seg Neutrophils # Seg Neutrophils # Man Lymphocytes # (Manual) Monocytes # (Manual) Eosinophils # (Manual) Nucleated RBC % Basophils # (Manual) PT INR APTT Heparin Anti-Xa Level ABG pH POC ABG pO2 ABG pO2 ABG HCO3 ABG O2 Saturation ABG Base Excess POC ABG pCO2 ABG Hemoglobin ABG Oxyhemoglobin ABG Chloride ABG Glucose Oxyhemoglobin Sodium Potassium Chloride Carbon Dioxide BUN Creatinine Glucose POC Glucose 129 H 126 H 129 H Lactic Acid Calcium Phosphorus Magnesium AST ALT Lactate Dehydrogenase Total Bilirubin Direct Bilirubin CK-MB (CK-2) C-Reactive Protein NT-Pro-B Natriuret Pep Total Protein Albumin Arterial Blood Glucose Urine WBC (Auto) Urine Creatinine 02/13/20 02/14/20 02/14/20 17:59 00:15 05:41 WBC RBC Hgb Hct MCHC RDW MCV MCH Lymph % (Auto) [place] % (Auto) [place] # Eos # Lymph # (Auto) [place] # (Auto) Eos # (Auto) Seg Neutrophils % Seg Neuts % (Manual) Baso # (Auto) Lymphocytes % (Manual) Monocytes % (Manual) Eosinophils % (Manual) Basophils % (Manual) Seg Neutrophils # Seg Neutrophils # Man Lymphocytes # (Manual) Monocytes # (Manual) Eosinophils # (Manual) Nucleated RBC % Basophils # (Manual) PT INR APTT Heparin Anti-Xa Level ABG pH POC ABG pO2 ABG pO2 ABG HCO3 ABG O2 Saturation ABG Base Excess POC ABG pCO2 ABG Hemoglobin ABG Oxyhemoglobin ABG Chloride ABG Glucose Oxyhemoglobin Sodium Potassium Chloride Carbon Dioxide BUN Creatinine Glucose POC Glucose 153 H 130 H 130 H Lactic Acid Calcium Phosphorus Magnesium AST ALT Lactate Dehydrogenase Total Bilirubin Direct Bilirubin CK-MB (CK-2) C-Reactive Protein NT-Pro-B Natriuret Pep Total Protein Albumin Arterial Blood Glucose Urine WBC (Auto) Urine Creatinine 02/14/20 11:32 WBC RBC Hgb Hct MCHC RDW MCV MCH Lymph % (Auto) [place] % (Auto) [place] # Eos # Lymph # (Auto) [place] # (Auto) Eos # (Auto) Seg Neutrophils % Seg Neuts % (Manual) Baso # (Auto) Lymphocytes % (Manual) Monocytes % (Manual) Eosinophils % (Manual) Basophils % (Manual) Seg Neutrophils # Seg Neutrophils # Man Lymphocytes # (Manual) Monocytes # (Manual) Eosinophils # (Manual) Nucleated RBC % Basophils # (Manual) PT INR APTT Heparin Anti-Xa Level ABG pH POC ABG pO2 ABG pO2 ABG HCO3 ABG O2 Saturation ABG Base Excess POC ABG pCO2 ABG Hemoglobin ABG Oxyhemoglobin ABG Chloride ABG Glucose Oxyhemoglobin Sodium Potassium Chloride Carbon Dioxide BUN Creatinine Glucose POC Glucose 157 H Lactic Acid Calcium Phosphorus Magnesium AST ALT Lactate Dehydrogenase Total Bilirubin Direct Bilirubin CK-MB (CK-2) C-Reactive Protein NT-Pro-B Natriuret Pep Total Protein Albumin Arterial Blood Glucose Urine WBC (Auto) Urine Creatinine Allied health notes reviewed: nursing
--- NOTE | 2020-02-14 16:36 | Progress Note ---
Assessment and Plan Patient chronic tracheostomy, remains intubated on ventilatory support --Acute on chronic hypoxemic respiratory failure; Patient has tracheostomy on vent Continue nebulizers, , trach care Wean off ventilator as tolerated Pulmonary critical following --Acute exacerbation of COPD; Patient is currently on ventilatory support Continue nebulizers. Stable but still unable to wean. --Left lower lobe PE; Continue Eliquis, no evidence of bleeding. Ventilatory support --Acute right lower extremity DVT; Patient is on Eliquis --Bilateral multifocal pneumonia/community-acquired Completed antibiotics, improved repeat chest x-ray 1 to 2 days. --Severe sepsis/bilateral pneumonia: Completed antibiotics COVID-19 test; 11/24/2019; negative 11/26/2019; negative 12/29/2019: Negative -Ischemic cardiomyopathy Cardiology is following, status post cardiac catheterization on 01/22/2020; Coronary artery disease status post PCI and stent to the LAD Continue current cardiac medications --atrial fibrillation WITH RVR Now rate controlled, Stable on amiodarone and Eliquis AV devin blocking agent. --Acute on chronic combined systolic and diastolic congestive heart failure Ischemic cardiomyopathy left ventricular ejection fraction 40 to 45% --H/o CAD [[facility] [place] 12/2018 in-stent restenosis] --Hypertensive emergency; present on admission Reasonable blood pressures, continue current antihypertensives No change in medical management. --Hypokalemia; has been corrected and resolved. --History of alcohol abuse/alcohol withdrawal; Was on CIWA protocol, now stable --Oropharyngeal dysphagia; status post PEG placement Continue PEG feeds per protocol --History of partial small bowel obstruction; resolved Surgery evaluated. At present not a surgical candidate. --Obesity; BMI 34.7 unable to take in adequate amounts of food on his own at this time. Suspect weight loss. Severe protein deficiency malnutrition. Patient needs weight reduction when medically stable --Severe protein calorie malnutrition/hypoalbuminemia Nutrition supplements, dietitian following, PEG feeds --DVT prophylaxis;Eliquis --Full CODE STATUS Has not had any real changes. Patient prognosis remains extremely poor family still wishes for full code. Subjective Date of service: 02/14/20 Principal diagnosis: Ac hypoxemic resp failure; Pneumonia; PUI COVID-19; CHF; COPD; HTN Interval history: Patient is a 64-year-old male with known history of hypertension, COPD, history of coronary artery disease, CHF with ejection fraction of 20 to 25% in August 2018 presenting to the emergency room via EMS complaining of shortness of breath. Patient was found to be hypoxic and in respiratory distress. Patient was placed on CPAP in route to the hospital. Patient remained hypoxic on CPAP BiPAP ,subsequently was intubated. Work-up in the emergency room including chest x-ray reveals bilateral pneumonia. He had an elevated white count of 14 and also had an elevated BNP. sputum cul tures positive for Pseudomonas, ID treated with cefepime and Vanco. His hospital course became complicated with acute PE, DVT, paroxysmal atrial fib - placed on chronic anticoagulation. Patient was difficult to wean off, status post trach and PEG, remains on mechanical ventilation with trach tube. He then developed partial small bowel obstruction valuated by general surgeon symptom improved with medical Mx, patient was briefly weaned off ventilatory support however, was in respiratory failure requiring full ventilatory support. Cardiac catheterization on 01/22/2020. scussed with Nursing staff, patient with some mild change in mental status, not following commands like prior,WILL OBTAIN HEAD CT remains intubated on full mechanical ventilatory support. Today is my first day seeing the patient, have reviewed all records so far. Patients still with elevated heart rate of Afib with RVR continue amiodarone and metoprolol. LVEF 40 to 45%. Continue Eliquis FOR THE Acute PE/DVT. Partial SBO vs ileus- KUB is negative. Will monitor, No further vomiting noted. If no improvement will repeat a chest xray to ensure no aspiration in the last 24 hrs. Will initiate sepsis work up, Obtain cultures, cxr- no change, only showing stable bilateral pulmonary opacities, lactate checked and wnl. Mild elevation in WBC. will recheck in am. IF Continued fever, will reconsult ID. 02/03: Mental status more improved, agree with Reglan will change to IV scheduled for two days, no new vomiting. Pseudomonas A in Sputum. 02/04: Clinical improving, amiodarone discontinued due to LFTs, continue Metoprolol.d/w GI, started on Golytely to clear impaction. Started on dialy Miralax. 02/05: Continue supportive care. Noted bowel movement, continue bowel regimen 02/06: Cardiology input noted beta-hebert increased for better suppression of atrial fibrillation. Continue to monitor, no other evidence of nausea vomiting noted. Discussed with respiratory therapist will be continued on weaning protocol with pressure support today. 02/07: Patient successfully weaned off the ventilator, No new complaints, con tinue monitoring, BM noted, Discussed with pulmonary, 02/08; tracheostomy on T-piece, patient is more alert and awake today 02/09; clinically no change, tracheostomy on vent 02/10; tracheostomy on vent, full CODE STATUS, poor prognosis, 02/11; clinically no change, remains on ventilatory support, full CODE STATus 02/12. Patient resting comfortably no change on vent with tracheostomy. Still unable to wean. Some increased crackles today. 02/14/2020. Still unable to wean from the vent. Overall prognosis remains extremely poor. Objective - Constitutional Vitals: Vital Signs - 12hr 02/14/20 02/14/20 02/14/20 05:00 05:31 06:00 Temperature Pulse Rate 106 H 108 H 100 H Pulse Rate [ From Monitor] Respiratory 21 28 H 27 H Rate Blood Pressure 98/78 95/80 114/75 O2 Sat by Pulse 94 96 96 Oximetry 02/14/20 02/14/20 02/14/20 06:30 06:31 07:00 Temperature Pulse Rate 104 H 105 H 109 H Pulse Rate [ From Monitor] Respiratory 24 27 H Rate Blood Pressure 114/75 109/76 106/79 O2 Sat by Pulse 94 98 Oximetry 02/14/20 02/14/20 02/14/20 07:07 07:14 07:15 Temperature Pulse Rate 90 122 H Pulse Rate [ From Monitor] Respiratory 25 H Rate Blood Pressure 106/79 106/79 O2 Sat by Pulse 99 100 100 Oximetry 02/14/20 02/14/20 02/14/20 07:30 07:43 08:00 Temperature 98.6 F Pulse Rate 100 H 93 H 110 H Pulse Rate [ 112 H From Monitor] Respiratory 37 H 33 H Rate Blood Pressure 106/78 106/78 O2 Sat by Pulse 91 99 98 Oximetry 02/14/20 02/14/20 02/14/20 08:01 08:31 09:01 Temperature Pulse Rate 112 H 102 H 107 H Pulse Rate [ From Monitor] Respiratory 33 H 35 H 25 H Rate Blood Pressure 94/47 94/47 230/171 O2 Sat by Pulse 98 99 Oximetry 02/14/20 02/14/20 02/14/20 09:31 10:00 10:30 Temperature Pulse Rate 115 H 112 H 113 H Pulse Rate [ From Monitor] Respiratory 35 H 29 H 31 H Rate Blood Pressure 120/72 128/75 122/83 O2 Sat by Pulse 96 96 96 Oximetry 02/14/20 02/14/20 02/14/20 11:00 11:22 11:31 Temperature Pulse Rate 117 H 100 H 94 H Pulse Rate [ From Monitor] Respiratory 29 H 26 H Rate Blood Pressure 118/76 118/76 100/70 O2 Sat by Pulse 93 97 91 Oximetry 02/14/20 02/14/20 02/14/20 12:00 12:30 13:00 Temperature 98.8 F Pulse Rate 94 H 93 H 105 H Pulse Rate [ 94 H From Monitor] Respiratory 24 27 H 29 H Rate Blood Pressure 98/75 95/71 102/75 O2 Sat by Pulse 95 94 Oximetry 02/14/20 02/14/20 02/14/20 13:31 14:01 14:30 Temperature Pulse Rate 103 H 106 H 101 H Pulse Rate [ From Monitor] Respiratory 31 H 30 H 28 H Rate Blood Pressure 114/86 109/89 110/76 O2 Sat by Pulse 91 99 97 Oximetry 02/14/20 02/14/20 02/14/20 15:00 15:30 16:00 Temperature Pulse Rate 114 H 99 H 124 H Pulse Rate [ 124 H From Monitor] Respiratory 30 H 14 24 Rate Blood Pressure 117/75 117/75 100/82 O2 Sat by Pulse 94 96 Oximetry General appearance: Present: other (Tracheostomy minimally responsive.) - Respiratory Respiratory: bilateral: diminished, rhonchi (Bilateral bases.) - Cardiovascular Rhythm: other (Tachycardic heart rate as high as 120.) Extremity abnormal: edema, other (Worsening edema not moving extremities now.) - Gastrointestinal General gastrointestinal: Present: soft, non-tender, hypoactive bowel sounds, other (Slightly distended) - Labs CBC & Chem 7: 02/12/20 04:56 02/12/20 04:56 Labs: Abnormal lab results 02/13/20 02/14/20 02/14/20 Range/Units 17:59 00:15 05:41 POC Glucose 153 H 130 H 130 H (70-105) mg/dL 02/14/20 Range/Units 11:32 POC Glucose 157 H (70-105) mg/dL HEART Score - HEART Score Troponin: Troponin T < 0.010 ng/mL (0.00-0.029) 01/19/20 01:35
[2020-02-14] MEDS: DIGOXIN 0.5 MG/2 ML INJ IV SCH (17:01)
[2020-02-14] MEDS: POLYETHYLENE GLYCOL 3350 17 GM POWDER PO SCH (21:08)
[2020-02-14] MEDS: TAMSULOSIN 0.4 MG CAP PO SCH (22:15)
[2020-02-15] MEDS: METOCLOPRAMIDE 10 MG/2 ML INJ IV SCH ×2 (00:05→05:19)
[2020-02-15] MEDS: METOPROLOL TARTRATE 50 MG TAB PO SCH ×4 (00:58→18:52)
[2020-02-15] MEDS: INSULIN REGULAR, HUMAN 100 UNIT/ML 3ML VIAL SUB-Q SCH ×6 (00:59→18:07)
[2020-02-15] MEDS: GLYCOPYRROLATE 2 MG TAB PO SCH ×3 (08:03→21:33)
[2020-02-15] MEDS: MIDODRINE 5 MG TAB PO SCH ×3 (08:03→15:24)
[2020-02-15 08:12] LABS: Blood Urea Nitrogen 40 mg/dL (9-20); Calcium 8.9 mg/dL (8.4-10.2); Hemolysis Index 36
[2020-02-15 08:18] LABS: Hematocrit 33.7 % (35.5-45.6); Hemoglobin 10.4 gm/dl (11.8-15.2); Mean Corpuscular HGB Conc 31 % (32-34); Mean Corpuscular Volume 80 fl (84-94); Platelet Count 281 K/mm3 (140-440); Red Blood Count 4.24 M/mm3 (3.65-5.03); Red Cell Distribution Width 19.4 % (13.2-15.2)
[2020-02-15 08:27] LABS: BUN/Creatinine Ratio 57
--- NOTE | 2020-02-15 08:45 | Progress Note ---
Assessment and Plan Assessment and plan: Patient chronic tracheostomy, remains intubated on ventilatory support --Acute on chronic hypoxemic respiratory failure; Patient has tracheostomy on vent Continue nebulizers, , trach care Wean off ventilator as tolerated Pulmonary critical following --Acute exacerbation of COPD; Patient is currently on ventilatory support Continue nebulizers. Stable but still unable to wean. --Hypernatremia; free water flushes via feeding tube Closely monitor electrolytes --Hypokalemia; corrected, closely monitor electrolytes --Left lower lobe PE; Continue Eliquis, no evidence of bleeding. Ventilatory support --Acute right lower extremity DVT; Patient is on Eliquis --Bilateral multifocal pneumonia/community-acquired Completed antibiotics, improved --Severe sepsis/bilateral pneumonia: Completed antibiotics COVID-19 test; 11/24/2019; negative 11/26/2019; negative 12/29/2019: Negative -Ischemic cardiomyopathy Cardiology is following, status post cardiac catheterization on 01/22/2020; Coronary artery disease status post PCI and stent to the LAD Continue current cardiac medications --atrial fibrillation WITH RVR Now rate controlled, Stable on amiodarone and Eliquis AV devin blocking agent. --Acute on chronic combined systolic and diastolic congestive heart failure Ischemic cardiomyopathy left ventricular ejection fraction 40 to 45% --H/o CAD [[facility] 12/2018 in-stent restenosis] --Hypertensive emergency; present on admission Reasonable blood pressures, continue current antihypertensives No change in medical management. --History of alcohol abuse/alcohol withdrawal; Was on CIWA protocol, now stable --Oropharyngeal dysphagia; status post PEG placement Continue PEG feeds per protocol --History of partial small bowel obstruction; resolved Surgery evaluated. At present not a surgical candidate. --Obesity; BMI 34.7 unable to take in adequate amounts of food on his own at this time Severe protein deficiency malnutrition. Patient needs weight reduction when medically stable --Severe protein calorie malnutrition/hypoalbuminemia Nutrition supplements, dietitian following, PEG feeds --DVT prophylaxis;Eliquis --Full CODE STATUS Has not had any real changes. Patient prognosis remains extremely poor family still wishes for full code. We will closely monitor the patient and adjust management as needed Patient critically ill ,very poor prognosis, Consults and recommendations noted and appreciated Brief history: Patient is a 64-year-old male with known history of hypertension, COPD, history of coronary artery disease, CHF with ejection fraction of 20 to 25% 2019 was admitted through emergency room with worsening shortness of breath Patient was found to be hypoxic and in respiratory distress. Patient was placed on CPAP in route to the hospital. Patient remained hypoxic on CPAP BiPAP ,subsequently was intubated. Patient also had bilateral multifocal pneumonia managed appropriately with antibiotics sputum cultures positive for Pseudomonas, ID treated with cefepime and Vanco. His hospital course became complicated with acute PE, DVT, paroxysmal atrial fib - placed on chronic anticoagulation. Patient was difficult to wean off, status post trach and PEG, remains on mechanical ventilation with trach tube. He then developed partial small bowel obstruction evaluated by general surgeon symptom improved with medical Mx, patient was briefly weaned off ventilatory support however, was in respiratory failure requiring full ventilatory support. Cardiac catheterization on 01/22/2020. Patient remains on mechanical ventilatory support. Patients still with elevated heart rate of Afib with RVR continue amiodarone and metoprolol. LVEF 40 to 45% on Eliquis FOR THE Acute PE/DVT. Partial SBO vs ileus- KUB is negative. Will monitor, No further vomiting noted. If no improvement will repeat a chest xray to ensure no aspiration in the last 24 hrs. Patient chronic tracheostomy, remains intubated on ventilatory support 02/03: Mental status more improved, agree with Reglan will change to IV scheduled for two days, no new vomiting. Pseudomonas A in Sputum. 02/04: Clinical improving, amiodarone discontinued due to LFTs, continue Metoprolol.d/w GI, started on Golytely to clear impaction. Started on dialy Miralax. 02/05: Continue supportive care. Noted bowel movement, continue bowel regimen 02/06: Cardiology input noted beta-hebert increased for better suppression of atrial fibrillation. Continue to monitor, no other evidence of nausea vomiting noted. Discussed with respiratory therapist will be continued on weaning protocol with pressure support today. 02/07: Patient successfully weaned off the ventilator, No new complaints, continue monitoring, BM noted, Discussed with pulmonary, 02/08; tracheostomy on T-piece, patient is more alert and awake today 02/09; clinically no change, tracheostomy on vent 02/10; tracheostomy on vent, full CODE STATUS, poor prognosis, 02/11; clinically no change, remains on ventilatory support, full CODE STATUS, discussed with spouse Ms. Paulette Araiza extensively today 02/12. Patient resting comfortably no change on vent with tracheostomy. Still unable to wean. Some increased crackles today. 02/13: Still unable to wean from the vent. Overall prognosis remains extremely poor. 02/14; remains critically ill, tracheostomy on vent, unable to wean, poor prognosis, full CODE STATUS History Interval history: I have seen and examined the patient at the bedside Patient's chart and medications reviewed Patient chronic tracheostomy on T-piece/vent Vital signs noted Hospitalist Physical - Constitutional Vitals: Temp Pulse Resp BP Pulse Ox 97.4 F L 106 H 18 105/83 95 02/15/20 08:00 02/15/20 08:00 02/15/20 08:00 02/15/20 08:00 02/15/20 08:02 General appearance: Present: mild distress, well-nourished, obese, other (Tracheostomy minimally responsive.) - EENT Eyes: Present: PERRL, EOM intact. Absent: scleral icterus, conjunctival injection - Neck Neck: Present: supple, normal ROM - Respiratory Respiratory effort: normal Respiratory: bilateral: diminished, rhonchi, negative: rales, wheezing - Cardiovascular Rhythm: regular Heart Sounds: Present: S1 & S2 - Extremities Extremities: no ischemia Extremity abnormal: edema - Abdominal General gastrointestinal: soft, non-tender, non-distended, normal bowel sounds - Integumentary Integumentary: Present: clear, warm - Psychiatric Psychiatric: other (Tracheostomy, noncommunicative) - Neurologic Neurologic: other (Noncommunicative tracheostomy) HEART Score - HEART Score Troponin: Troponin T < 0.010 ng/mL (0.00-0.029) 01/19/20 01:35 Results - Labs CBC & Chem 7: 02/15/20 06:59 02/15/20 06:59 Labs: Laboratory Last Values WBC 10.2 K/mm3 (4.5-11.0) 02/15/20 06:59 RBC 4.24 M/mm3 (3.65-5.03) 02/15/20 06:59 Hgb 10.4 gm/dl (11.8-15.2) L 02/15/20 06:59 Hct 33.7 % (35.5-45.6) L 02/15/20 06:59 MCV 80 fl (84-94) L 02/15/20 06:59 MCH 24 pg (28-32) L 02/15/20 06:59 MCHC 31 % (32-34) L 02/15/20 06:59 RDW 19.4 % (13.2-15.2) H 02/15/20 06:59 Plt Count 281 K/mm3 (140-440) 02/15/20 06:59 Lymph % (Auto) Awning Hanger Helper 02/15/20 06:59 [place] % (Auto) Awning Hanger Helper 02/15/20 06:59 Eos % (Auto) Awning Hanger Helper 02/15/20 06:59 Baso % (Auto) Awning Hanger Helper 02/15/20 06:59 Lymph # (Auto) Awning Hanger Helper 02/15/20 06:59 [place] # (Auto) Awning Hanger Helper 02/15/20 06:59 Eos # (Auto) Awning Hanger Helper 02/15/20 06:59 Baso # (Auto) Awning Hanger Helper 02/15/20 06:59 Add Manual Diff Complete 12/19/19 11:32 Total Counted 100 12/19/19 11:32 Seg Neutrophils % Awning Hanger Helper 02/15/20 06:59 Seg Neuts % (Manual) 82.0 % (40.0-70.0) H 12/19/19 11:32 Band Neutrophils % 0 % 12/19/19 11:32 Lymphocytes % (Manual) 10.0 % (13.4-35.0) L 12/19/19 11:32 Reactive Lymphs % (Man) 0 % 12/19/19 11:32 Monocytes % (Manual) 6.0 % (0.0-7.3) 12/19/19 11:32 Eosinophils % (Manual) 2.0 % (0.0-4.3) 12/19/19 11:32 Basophils % (Manual) 0 % (0.0-1.8) 12/19/19 11:32 Metamyelocytes % 0 % 12/19/19 11:32 Myelocytes % 0 % 12/19/19 11:32 Promyelocytes % 0 % 12/19/19 11:32 Blast Cells % 0 % 12/19/19 11:32 Nucleated RBC % 1.0 % (0.0-0.9) H 12/19/19 11:32 Seg Neutrophils # Awning Hanger Helper 02/15/20 06:59 Seg Neutrophils # Man 12.0 K/mm3 (1.8-7.7) H 12/19/19 11:32 Band Neutrophils # 0.0 K/mm3 12/19/19 11:32 Lymphocytes # (Manual) 1.5 K/mm3 (1.2-5.4) 12/19/19 11:32 Abs React Lymphs (Man) 0.0 K/mm3 12/19/19 11:32 Monocytes # (Manual) 0.9 K/mm3 (0.0-0.8) H 12/19/19 11:32 Eosinophils # (Manual) 0.3 K/mm3 (0.0-0.4) 12/19/19 11:32 Basophils # (Manual) 0.0 K/mm3 (0.0-0.1) 12/19/19 11:32 Metamyelocytes # 0.0 K/mm3 12/19/19 11:32 Myelocytes # 0.0 K/mm3 12/19/19 11:32 Promyelocytes # 0.0 K/mm3 12/19/19 11:32 Blast Cells # 0.0 K/mm3 12/19/19 11:32 WBC Morphology Not Reportable 12/19/19 11:32 Hypersegmented Neuts Not Reportable 12/19/19 11:32 Hyposegmented Neuts Not Reportable 12/19/19 11:32 Hypogranular Neuts Not Reportable 12/19/19 11:32 Smudge Cells Not Reportable 12/19/19 11:32 Toxic Granulation Not Reportable 12/19/19 11:32 Toxic Vacuolation Not Reportable 12/19/19 11:32 Dohle Bodies Not Reportable 12/19/19 11:32 Pelger-Huet Anomaly Not Reportable 12/19/19 11:32 Hector Rods Not Reportable 12/19/19 11:32 Platelet Estimate Consistent w auto 12/19/19 11:32 Clumped Platelets Not Reportable 12/19/19 11:32 Plt Clumps, EDTA Not Reportable 12/19/19 11:32 Large Platelets Not Reportable 12/19/19 11:32 Giant Platelets Not Reportable 12/19/19 11:32 Platelet Satelliting Not Reportable 12/19/19 11:32 Plt Morphology Comment Not Reportable 12/19/19 11:32 RBC Morphology Not Reportable 12/19/19 11:32 Dimorphic RBCs Not Reportable 12/19/19 11:32 Polychromasia Not Reportable 12/19/19 11:32 Hypochromasia Few 12/19/19 11:32 Poikilocytosis Not Reportable 12/19/19 11:32 Anisocytosis 1+ 12/19/19 11:32 Microcytosis Few 12/19/19 11:32 Macrocytosis Few 12/19/19 11:32 Spherocytes Not Reportable 12/19/19 11:32 Pappenheimer Bodies Not Reportable 12/19/19 11:32 Sickle Cells Not Reportable 12/19/19 11:32 Target Cells Not Reportable 12/19/19 11:32 Tear Drop Cells Not Reportable 12/19/19 11:32 Ovalocytes Not Reportable 12/19/19 11:32 Helmet Cells Not Reportable 12/19/19 11:32 Gottlieb-Mackey Bodies Not Reportable 12/19/19 11:32 Green Rings Not Reportable 12/19/19 11:32 Oc Cells Not Reportable 12/19/19 11:32 Bite Cells Not Reportable 12/19/19 11:32 Crenated Cell Not Reportable 12/19/19 11:32 Elliptocytes Not Reportable 12/19/19 11:32 Acanthocytes (Spur) Not Reportable 12/19/19 11:32 Rouleaux Not Reportable 12/19/19 11:32 Hemoglobin C Crystals Not Reportable 12/19/19 11:32 Schistocytes Not Reportable 12/19/19 11:32 Malaria parasites Not Reportable 12/19/19 11:32 Clifford Bodies Not Reportable 12/19/19 11:32 Hem Pathologist Commnt No 12/19/19 11:32 PT 27.0 Sec. (12.2-14.9) H 02/07/20 15:03 INR 2.46 (0.87-1.13) H 02/07/20 15:03 APTT 31.5 Sec. (24.2-36.6) 01/22/20 09:58 Heparin Anti-Xa Level 1.34 U.I./ml (0.3-0.7) H 01/22/20 04:45 ABG pH 7.502 (7.320-7.450) H 02/11/20 14:11 POC ABG pCO2 34.8 mmHg (32.0-48.0) 02/11/20 14:11 ABG pCO2 54.1 mm Hg 02/09/20 21:40 POC ABG pO2 77.7 mmHg (83-108) L 02/11/20 14:11 ABG pO2 59.8 mm Hg (80.0-90.0) L 02/09/20 21:40 POC ABG HCO3 26.7 02/11/20 14:11 ABG HCO3 33.3 mmol/L (20.0-26.0) H 02/09/20 21:40 ABG O2 Saturation 88.9 % (95.0-99.0) L 02/09/20 21:40 ABG O2 Content 12.7 (0.0-44) 02/09/20 21:40 POC ABG Base Excess 3.6 02/11/20 14:11 ABG Base Excess 7.4 mmol/L (-2.0-3.0) H 02/09/20 21:40 ABG Hemoglobin 11.1 (12.0-17.5) L 02/11/20 14:11 ABG Oxyhemoglobin 84 (94-98) L 12/22/19 03:22 ABG Carboxyhemoglobin 2.3 % (0.0-5.0) 02/09/20 21:40 ABG Methemoglobin 0.6 % (0.0-1.5) 02/09/20 21:40 ABG Sodium 144.7 mmol/L (136.0-145.0) 02/11/20 14:11 ABG Potassium 3.5 mmol/L (3.40-4.50) 02/11/20 14:11 ABG Chloride 108.0 mmol/L (98-107) H 02/11/20 14:11 ABG Glucose 151 mg/dL (65-95) H 02/11/20 14:11 Oxyhemoglobin 86.3 % (95.0-99.0) L 02/09/20 21:40 Carboxyhemoglobin 0.7 (0.5-1.5) 12/22/19 03:22 FiO2 30.0 02/11/20 14:11 Sodium 149 mmol/L (137-145) H 02/15/20 06:59 Potassium 3.9 mmol/L (3.6-5.0) 02/15/20 06:59 Chloride 108.4 mmol/L (98-107) H 02/15/20 06:59 Carbon Dioxide 31 mmol/L (22-30) H 02/15/20 06:59 Anion Gap 14 mmol/L 02/15/20 06:59 BUN 40 mg/dL (9-20) H 02/15/20 06:59 Creatinine 0.7 mg/dL (0.8-1.3) L 02/15/20 06:59 Estimated GFR > 60 ml/min 02/15/20 06:59 BUN/Creatinine Ratio 57 % 02/15/20 06:59 Glucose 150 mg/dL (75-100) H 02/15/20 06:59 POC Glucose 111 mg/dL (70-105) H 02/15/20 05:27 Lactic Acid 1.60 mmol/L (0.7-2.0) 02/03/20 12:49 Calcium 8.9 mg/dL (8.4-10.2) 02/15/20 06:59 Ferritin 84.4 ng/mL (30.0-300.0) 11/24/19 04:53 Phosphorus 4.10 mg/dL (2.5-4.5) 01/31/20 19:24 Magnesium 2.40 mg/dL (1.7-2.3) H 02/10/20 07:40 Total Bilirubin 1.30 mg/dL (0.1-1.2) H 02/08/20 19:00 Direct Bilirubin 0.9 mg/dL (0-0.2) H 02/08/20 19:00 Indirect Bilirubin 0.4 mg/dL 02/08/20 19:00 Total Creatine Kinase 141 units/L (55-170) 11/24/19 02:53 CK-MB (CK-2) 4.3 ng/mL (0.0-4.0) H 11/24/19 02:53 AST 309 units/L (5-40) H 02/08/20 19:00 ALT 650 units/L (7-56) H 02/08/20 19:00 CK-MB (CK-2) Rel Index 3.0 (0-4) 11/24/19 02:53 Alkaline Phosphatase 109 units/L (35-129) 02/08/20 19:00 C-Reactive Protein 8.50 mg/dL (0.00-1.30) H 12/01/19 12:16 Ammonia 35.0 umol/L (25-60) 02/03/20 12:49 Lactate Dehydrogenase 228 units/L (91-180) H 12/19/19 04:45 Troponin T < 0.010 ng/mL (0.00-0.029) 01/19/20 01:35 NT-Pro-B Natriuret Pep 3866 pg/mL (0-900) H 01/01/20 10:40 Total Protein 6.2 g/dL (6.3-8.2) L 02/08/20 19:00 Albumin 2.7 g/dL (3.9-5) L 02/08/20 19:00 Albumin/Globulin Ratio 0.8 % 02/08/20 19:00 Procalcitonin 0.44 ng/mL (<0.15) 02/03/20 12:49 Arterial Blood Glucose 151 mg/dL (65-95) H 02/11/20 14:11 Arterial Blood Ionized Calcium 4.7 mg/dL (4.6-5.3) 02/11/20 14:11 Urine Color Cecy (Yellow) 12/31/19 18:04 Urine Turbidity Clear (Clear) 12/31/19 18:04 Urine pH 5.0 (5.0-7.0) 12/31/19 18:04 Ur Specific [place] 1.023 (1.003-1.030) 12/31/19 18:04 Urine Protein <15 mg/dl mg/dL (Negative) 12/31/19 18:04 Urine Glucose (UA) Neg mg/dL (Negative) 12/31/19 18:04 Urine Ketones Neg mg/dL (Negative) 12/31/19 18:04 Urine Blood Neg (Negative) 12/31/19 18:04 Urine Bacteria (Auto) 1+ /HPF (Negative) 12/03/19 06:03 Urine Nitrite Neg (Negative) 12/31/19 18:04 Urine Bilirubin Neg (Negative) 12/31/19 18:04 Urine Urobilinogen 4.0 mg/dL (<2.0) 12/31/19 18:04 Ur Leukocyte Esterase Neg (Negative) 12/31/19 18:04 Urine WBC (Auto) 2.0 /HPF (0.0-6.0) 12/31/19 18:04 Urine RBC (Auto) 3.0 /HPF (0.0-6.0) 12/31/19 18:04 U Epithel Cells (Auto) 2.0 /HPF (0-13.0) 12/31/19 18:04 Urine Mucus 1+ /HPF 12/31/19 18:04 Urine Creatinine 57.4 mg/dL (0.1-20.0) H 01/31/20 Unknown Urine Sodium 59 mmol/L 01/31/20 Unknown Vancomycin Trough 14.2 ug/mL (5.0-20.0) 12/13/19 15:01 Coronavirus (PCR) Negative (Negative) 12/29/19 10:07 Hepatitis A IgM Ab Non-reactive (NonReactive) 02/05/20 06:37 Hep Bs Antigen Non-reactive (Negative) 02/05/20 06:37 Hep B Core IgM Ab Non-reactive (NonReactive) 02/05/20 06:37 Hepatitis C Antibody Non-reactive (NonReactive) 02/05/20 06:37 Blood Type O POSITIVE 01/21/20 13:00 Antibody Screen Negative 01/21/20 13:00 - Diagnostic Impressions Diagnostic Impressions: Echocardiogram 11/29/19 07:37 Transthoracic Echocardiogram Indication: CHF BP: 116/72 HR: 33 Conclusions *The study is technically limited due to poor acoustic windows. *Global left ventricular systolic function is normal. *The estimated ejection fraction is 50-55%. *Mild concentric left ventricular hypertrophy is observed. *There is trace of mitral regurgitation. *There is mild tricuspid regurgitation. Findings Procedure Info: The study quality is poor. The study is technically limited due to poor acoustic windows. The study is technically limited due to patient body habitus. Left Ventricle: The left ventricular chamber size is normal. Mild concentric left ventricular hypertrophy is observed. Global left ventricular systolic function is normal. The estimated ejection fraction is 50-55%. Left Atrium: The left atrial chamber size is normal. Right Ventricle: The right ventricular cavity size is normal. Right Atrium: The right atrial cavity size is normal. Aortic Valve: The aortic valve leaflets are moderately thickened. There is trace of aortic regurgitation. There is no evidence of aortic stenosis. Mitral Valve: The mitral valve leaflets are mildly thickened. There is trace of mitral regurgitation. There is no evidence of mitral stenosis. Tricuspid Valve: There is mild tricuspid regurgitation. No pulmonary hypertension is noted. Pulmonic Valve: There is trace pulmonic regurgitation. Pericardium: There is no pericardial effusion. Aorta: There is no dilatation of the aortic root. Venous: The inferior vena cava appears normal in size. Contrast: Definity was used to optimize study. Intravenous contrast was used to enhance endocardial border definition. Measurements Chambers 2D Name Value Normal Range Ao root diameter (2D) 3.4 cm (2 - 3.7) Aortic Valve Name Value Normal Range AV Vmax 0.98 m/sec - AV VTI 16.76 cm - AV peak gradient 3.83 mmHg - AV mean gradient 2.57 mmHg - LVOT diameter 3.11 cm - LVOT Vmax 0.68 m/sec - LVOT VTI 11.52 cm - LVOT peak gradient 1.84 mmHg - LVOT mean gradient 1.27 mmHg - SV LVOT 87.31 ml - MALOU (continuity Vmax) 5.24 cm2 - MALOU (continuity VTI) 5.21 cm2 - Tricuspid Valve Name Value Normal Range IVC diameter 2.24 cm (1.2 - 2.3) Hoffman/IV: Voiding Method Indwelling Catheter IV Catheter Type [Right INT / Saline Lock Forearm] IV Catheter Type [Right Hand] Peripheral IV IV Catheter Type [Right Upper INT / Saline Lock arm] IV Catheter Type [Left Upper Mid-line arm] IV Catheter Type [Left Forearm INT / Saline Lock ] IV Catheter Type [Left Hand] Peripheral IV IV Catheter Type [Left Wrist] INT / Saline Lock IV Catheter Type [Right Peripheral IV Antecubital] Active Medications - Current Medications Current Medications: Generic Name Dose Route Start Last Admin Trade Name Freq PRN Reason Stop Dose Admin Acetaminophen 650 mg 12/31/19 11:43 02/13/20 11:09 Tylenol FEEDTUBE 650 mg Q6H PRN Administration Pain, Mild (1-3) Lipase/Protease/Amylase 1 each 01/09/20 12:01 Pancrepetr Betancourt 10,500 Unit FEEDTUBE PRN PRN For Clogged Feeding Tube Apixaban 5 mg 01/22/20 22:00 02/14/20 21:10 Eliquis PO 5 mg Q12HR CAR Administration Protocol Atorvastatin Calcium 40 mg 10/28/20 22:00 02/14/20 21:08 Lipitor PO 40 mg QHS CAR Administration Clopidogrel Bisulfate 75 mg 01/21/20 06:00 02/14/20 09:03 Plavix PO 75 mg QDAY CAR Administration Dextrose 50 ml 01/31/20 18:51 02/05/20 00:56 D50w (25gm) Syringe IV 50 ml Q30MIN PRN Administration Hypoglycemia Protocol Digoxin 0.125 mg 02/10/20 17:00 02/14/20 17:01 Lanoxin IV 0.125 mg DAILY@1700 CAR Administration Glycopyrrolate 2 mg 01/26/20 20:00 02/15/20 08:03 Glycopyrrolate PO 2 mg TID CAR Administration Haloperidol Lactate 5 mg 02/10/20 14:20 02/11/20 01:49 Haldol IV 5 mg Q6H PRN Administration Agitation Hydrophilic Ointment 1 applic 01/17/20 15:26 Vaseline Lip Therapy TP DIRECT PRN Dry Lips Sodium Chloride 500 mls @ 999 mls/hr 02/11/20 19:00 Nacl 0.9% 500 Ml IV ONCE [facility] Insulin Human Regular 0 unit 02/01/20 18:00 02/15/20 05:43 Humulin R SUB-Q Not Given Q6H [facility] Protocol Lansoprazole 30 mg 02/05/20 16:00 02/14/20 09:04 Prevacid Solutab FEEDTUBE 30 mg QDAY CAR Administration Metoclopramide HCl 10 mg 02/08/20 12:00 02/15/20 05:19 Reglan IV 10 mg Q6HR CAR Administration Metoprolol Tartrate 5 mg 01/11/20 08:00 02/03/20 07:16 Metoprolol IV 5 mg Q6H PRN Administration SEE INSTRUCTIONS Metoprolol Tartrate 50 mg 02/05/20 12:00 02/15/20 05:17 Metoprolol PO Not Given Q6HR [facility] Midodrine 15 mg 02/04/20 16:00 02/15/20 08:03 Proamatine PO 15 mg TID@0800,1200,1600 CAR Administration Morphine Sulfate 2 mg 01/06/20 15:41 02/14/20 18:09 Morphine IV 2 mg Q4H PRN Administration Pain, Moderate (4-6) Multi-Ingred Cream/Lotion/Oil/Oint 1 applic 02/01/20 15:52 Artificial Tears Ophth Oint OU Q4HR PRN Dry Eye(s) Nitroglycerin 0.4 mg 01/19/20 21:09 01/20/20 03:03 Nitrostat SL 0.4 mg .Q5MIN PRN Administration Chest Pain Ondansetron HCl 4 mg 01/05/20 14:37 02/14/20 07:32 Zofran IV 4 mg Q8H PRN Administration Nausea And Vomiting Polyethylene Glycol 17 gm 12/04/19 22:00 02/14/20 21:08 Miralax 3350 PO 17 gm QHS CAR Administration Quetiapine Fumarate 300 mg 01/13/20 22:00 02/14/20 21:08 Seroquel PO 300 mg BID CAR Administration Scopolamine 1 each 01/07/20 20:00 01/07/20 21:08 Transderm-Scop TD 1 each Q72HR CAR Administration Simple Syrup 15 ml 01/09/20 12:01 Simple Syrup FEEDTUBE PRN PRN Hypoglycemia Simple Syrup 30 ml 01/09/20 12:01 Simple Syrup FEEDTUBE PRN PRN Hypoglycemia Sodium Bicarbonate 325 mg 01/09/20 12:01 Sodium Bicarbonate FEEDTUBE PRN PRN For Clogged Feeding Tube Sodium Chloride 10 ml 11/24/19 10:00 02/14/20 21:10 Sodium Chloride Flush Syringe 10 Ml IV 10 ml BID CAR Administration Tamsulosin HCl 0.8 mg 12/20/19 22:00 02/14/20 22:15 Flomax PO 0.8 mg QHS CAR Administration Nutrition/Malnutrition Assess - Dietary Evaluation Nutrition/Malnutrition Findings: Nutrition Notes Start: 11/24/19 12:22 Freq: Status: Active Protocol: Document 02/11/20 14:02 EN (Rec: 02/11/20 14:12 EN [email or web address]) Co-Sign 02/11/20 14:02 LP Nutrition Notes Initial or Follow up Reassessment Current Diagnosis Coronary Artery Disease,Heart Failure,Respiratory Failure, Stroke,Hyperlipidemia Other Pertinent Diagnosis Partial SBO, pneu, ventilated trach Current Diet Vital AF 1.2 at 75ml/hr Labs/Tests 02/09: Na 151 BUN 25 Cr 0.7 02/10: POC Glu 173 Pertinent Medications Lipitor Height 6 ft 2 in Weight 109.2 kg [place] Body Weight (kg) 86.36 BMI 30.9 Weight change and time frame Wt change noted. Weight Status Obese Subjective/Other Information F/u for TF tolerance and POC. Pt is back on vent. Per RN, TF is infusing at goal rate and pt is tolerating well. D/t hypernatremia, increase flush to 200ml q4h until resolved. Percent of energy/protein needs met: 99%/100% Burn Absent Trauma Absent GI Symptoms None Current % PO Negligible Minimum of two criteria Yes Muscle Mass Mild Depletion (non-severe) Fluid Accumulation Mild (non-severe) Reduced Trial Lawyer Strength Measurably Reduced (severe) #2 Nutrition Diagnosis Malnutrition Diagnosis Progress(for reassessment Continues documentation) #1 Nutrition Diagnosis Inadequate oral intake Diagnosis Progress(for reassessment Continues documentation) Is patient on ventilator? Yes Is Patient Ambulatory and/or Out of Bed No REE-([place]-St. Jeor-confined to bed) 2352.840 Kcal/Kg value to use for calculation 20 Approximate Energy Requirements Using 2184 kcal/Kg Calculation Used for Recommendations Kcal/kg Additional Notes Protein needs are 117-147g (1. 2-1.5 g/kg AdBW of 97.78kg) Fluid needs are 1.5L Nutrition Intervention Change Diet Order: Continue TF via PEG Nutrition Support: Vital AF 1.2 at 75ml/hr. Flush 200ml q4h for hypernatremia Flush 100ml q4h once hypernatremia is resolved Kcal 2,160 Protein (gm) 135 Fluid (mL) 1,460 Goal #1 Meet at least 75% of pt's energy and protein needs Goal #2 Weight maintenance Anticipated Discharge Needs: unable to determine Follow-Up By: 02/15/20 Additional Comments F/u for TF tolerance and Na labs
[2020-02-15] MEDS: QUEtiapine 100 MG TAB PO SCH ×2 (09:36→21:34)
[2020-02-15] MEDS: CLOPIDOGREL 75 MG TAB PO SCH (09:37)
[2020-02-15] MEDS: APIXABAN 5 MG TAB PO SCH ×2 (09:37→21:35)
[2020-02-15] MEDS: LANSOPRAZOLE 30 MG SOLUTAB FEEDTUBE SCH (09:38)
--- NOTE | 2020-02-15 11:05 | Progress Note ---
Assessment and Plan Chest pain, resolved LHC done 01/22/20 widely patent previous LAD stent. We found mild nonobstructive atherosclerosis of the mid right coronary artery. Otherwise the rest of the coronary system was without significant atherosclerosis. LVEF 40 to 45%. There was some hypokinesis of the basal inferior wall suggestive of previous or recent infarct. ECG done 01/19/20 shows sinus rhythm with low voltage QRS and subtle ST segment elevations in the inferolateral leads that suggested possible concern for an acute injury at that time. Atrial fibrillation, paroxysmal on metoprolol and digoxin amiodarone discontinued due to liver transaminases Ischemic Cardiomyopathy re-echo this presentation reports an LVEF 40-45%. Hx of CAD Multifocal pneumonia negative COVID-19 test x 3 Chronic Respiratory failure s/p trach History of COPD Acute PE/DVT -on Eliquis Anemia Partial SBO vs ileus Recommend: Continue medical management for atrial fibrillation and coronary artery disease. Otherwise, conservative cardiac management. Subjective Date of service: 02/15/20 Principal diagnosis: Ac hypoxemic resp failure; Pneumonia; PUI COVID-19; CHF; COPD; HTN Interval history: No interval cardiac changes. Atrial fibrillation with a well controlled ventricular rate on telemetry. Objective Vital Signs Temp Pulse Pulse Resp BP Pulse Ox Pulse Ox 02/15/20 09:00 108 H 22 115/79 87 02/15/20 08:30 95 H 22 115/79 92 02/15/20 08:02 95 02/15/20 08:00 97.4 F L 99 H 106 H 18 105/83 85 02/15/20 07:30 94 H 18 108/81 95 02/15/20 07:00 93 H 21 101/80 97 02/15/20 06:30 91 H 19 100/73 94 02/15/20 06:00 87 19 96/74 95 02/15/20 05:30 90 16 103/75 02/15/20 05:00 105 H 25 H 102/80 94 02/15/20 04:30 97 H 22 102/78 85 02/15/20 04:00 86 22 107/71 97 02/15/20 03:38 111 H 02/15/20 03:37 98.3 F 02/15/20 03:30 103 H 27 H 118/74 95 02/15/20 03:27 96 H 118/74 96 02/15/20 03:00 94 H 22 115/64 97 02/15/20 02:30 94 H 21 85/62 02/15/20 02:00 98 H 27 H 85/62 95 02/15/20 01:30 106 H 25 H 95/75 02/15/20 01:00 103 H 22 93/63 02/15/20 00:58 106 H 98/57 02/15/20 00:30 98 H 23 95/75 97 02/15/20 00:00 98.6 F 86 115 H 22 93/70 98 96 02/14/20 23:30 93 H 26 H 96/69 02/14/20 23:23 98 H 96/71 98 02/14/20 23:00 90 25 H 96/71 96 02/14/20 22:44 86 24 98/71 99 02/14/20 22:30 90 25 H 98/71 96 02/14/20 22:08 106 H 02/14/20 22:06 106 H 22 98 02/14/20 22:00 85 26 H 96/67 98 02/14/20 21:30 93 H 25 H 93/70 95 02/14/20 21:00 82 24 104/61 94 02/14/20 20:30 90 25 H 104/66 02/14/20 20:00 98.6 F 104 H 115 H 25 H 116/80 96 02/14/20 19:30 110 H 30 H 109/83 95 02/14/20 19:28 110 H 115/86 99 02/14/20 19:00 115 H 29 H 115/86 95 02/14/20 18:30 123 H 27 H 108/84 97 02/14/20 18:00 110 H 29 H 108/33 02/14/20 17:30 107 H 32 H 125/74 95 02/14/20 17:01 116 H 123/78 02/14/20 17:00 113 H 28 H 113/86 97 02/14/20 16:46 98 02/14/20 16:44 113 H 123/78 98 02/14/20 16:30 116 H 27 H 123/78 95 02/14/20 16:00 98.1 F 124 H 124 H 24 100/82 96 02/14/20 15:30 99 H 14 117/75 02/14/20 15:00 114 H 30 H 117/75 94 02/14/20 14:30 101 H 28 H 110/76 97 02/14/20 14:01 106 H 30 H 109/89 99 02/14/20 13:31 103 H 31 H 114/86 91 02/14/20 13:00 105 H 29 H 102/75 02/14/20 12:30 93 H 27 H 95/71 94 02/14/20 12:00 98.8 F 94 H 94 H 24 98/75 95 02/14/20 11:31 94 H 26 H 100/70 91 02/14/20 11:22 100 H 118/76 97 - Physical Examination General: Other (s/p trach) HEENT: Positive: PERRL Cardiac: Positive: irregularly irregular Neuro: Positive: Weakness - Labs and Meds CBC 02/15/20 Range/Units 06:59 WBC 10.2 (4.5-11.0) K/mm3 RBC 4.24 (3.65-5.03) M/mm3 Hgb 10.4 L (11.8-15.2) gm/dl Hct 33.7 L (35.5-45.6) % Plt Count 281 (140-440) K/mm3 Lymph # (Auto) [employer] [place] # (Auto) [employer]er Eos # (Auto) [employer] Baso # (Auto) [employer]er Comprehensive Metabolic Panel 02/15/20 Range/Units 06:59 Sodium 149 H (137-145) mmol/L Potassium 3.9 (3.6-5.0) mmol/L Chloride 108.4 H (98-107) mmol/L Carbon Dioxide 31 H (22-30) mmol/L BUN 40 H (9-20) mg/dL Creatinine 0.7 L (0.8-1.3) mg/dL Glucose 150 H (75-100) mg/dL Calcium 8.9 (8.4-10.2) mg/dL - Allied health notes Allied health notes reviewed: nursing
[2020-02-15 11:28] LABS: Eosinophils % (Manual) 0 % (0.0-4.3); Total Cells Counted 100
[2020-02-15 11:29] LABS: Anisocytosis 1+; Hypochromasia 1+; Poikilocytosis Few
[2020-02-15 11:30] LABS: Target Cells 1+; Tear Drop Cells Few
[2020-02-15 11:31] LABS: Platelet Estimate Consistent w Auto
--- NOTE | 2020-02-15 13:06 | Progress Note ---
Assessment and Plan Acute hypoxemic respiratory failure Bilateral pneumonia, community acquired. Acute LLL branch P.E. Acute DVT Person under investigation for COVID-19 infection. Acute congestive heart failure exacerbation. History of cerebrovascular accident. Acute chronic obstructive pulmonary disease exacerbation. Hypertension and hypertensive urgency at presentation. History of arthritis. Leukocytosis. Lactic acidosis. Oropharyngeal dysphagia - resume t-piece trials as tolerated and advance to RTC if tolerates - PSV if fails t-piece - continue to rest on AC qhs - explained that he needs to be off the ventilator to bewgin eating meals if he passes [employer] evaluation - continue Robinul & Scopolamine for secretion control - continue care as below otherwise; - daily SAT's and SBT assessment as tolerated - rate control per cardiology team - continue prn haldol for agitation to avoid hypoventilation (stopped Lorazepam) - continue Flomax - antiinfective's per ID rec's - Midodrine for BP support - prn mucomyst nebs re: secretions - continue full anticoagulation with Apixaban - continue seroquel for anxiolysis / delirium - COVID isolation per facility protocol - prn diuresis while following electrolytes / I's & O's - continue to wean oxygen for O2 sat's > 92% - continue bronchodilators with routine trach care and pulmonary hygiene per RT - continue Robinul & Scopolamine for secretion control - VAP bundle addressed (Aspiration precautions, HOB >40) - continue to wean per pulmonary driven protocols - sedation target is RASS 0 to -1 - continue prn analgesia per CPOT score - follow clinically re: fever curves / trend WBC - Avoid delirium (no benzodiazepines if they can be avoided) - Maintain sleep-wake cycle - enteral nutrition at goal rate as tolerated - continue accucheck's with glycemic control per SSI for target blood glucose goal of 140-180 mg/dL while critically ill; Avoid hypoglycemia - for VTE he is on IV Heparin - continue stress ulcer prophylaxis with Famotidine - continue mobility protocols for pressure ulcer prophylaxis - continue fall precautions - continue wound care management per RN / WCT - Supportive transfusions to keep HgB>7g/dL - CXR's and ABG's prn - Continue to monitor neurologic function - Continue chronic home medications - Continue all supportive care ........ re-evaluate in am & prn CONDITION: CRITICAL PROGNOSIS: GUARDED CODE STATUS: FULL CODE The high probability of a clinically significant, sudden or life threatening deterioration of the [Respiratory, cardiovascular & neurological] system(s) required my full and direct attention, intervention and personal management. The aggregate critical care time was [35] minutes without overlap. Time includes spent on [x] Data Review and interpretation [x] Patient assessment and monitoring of vital signs [x] Documentation [x] Medication orders and management Subjective Date of service: 02/15/20 Principal diagnosis: Ac hypoxemic resp failure; Pneumonia; PUI COVID-19; CHF; COPD; HTN Interval history: Patient is seen today for: Acute hypoxemic respiratory failure; [place]. Pneumonia (CAP); PUI COVID-19 infection; AE-CHF; AE-COPD; H/O CVA; HTN Seen and examined at bedside; 24 hour events reviewed; nursing and respiratory care staff consulted; no adverse overnight events reported to me; resting peacefully in bed; remains on MVS; on PSV trial; denies chest pain; frustrated and wants to eat; No N/V/F/C Objective Vital Signs - 12hr 02/15/20 02/15/20 02/15/20 01:30 02:00 02:30 Temperature Pulse Rate 106 H 98 H 94 H Pulse Rate [ From Monitor] Respiratory 25 H 27 H 21 Rate Blood Pressure 95/75 85/62 85/62 O2 Sat by Pulse 95 Oximetry 02/15/20 02/15/20 02/15/20 03:00 03:27 03:30 Temperature Pulse Rate 94 H 96 H 103 H Pulse Rate [ From Monitor] Respiratory 22 27 H Rate Blood Pressure 115/64 118/74 118/74 O2 Sat by Pulse 97 96 95 Oximetry 02/15/20 02/15/20 02/15/20 03:37 03:38 04:00 Temperature 98.3 F Pulse Rate 111 H 86 Pulse Rate [ From Monitor] Respiratory 22 Rate Blood Pressure 107/71 O2 Sat by Pulse 97 Oximetry 02/15/20 02/15/20 02/15/20 04:30 05:00 05:30 Temperature Pulse Rate 97 H 105 H 90 Pulse Rate [ From Monitor] Respiratory 22 25 H 16 Rate Blood Pressure 102/78 102/80 103/75 O2 Sat by Pulse 85 94 Oximetry 02/15/20 02/15/20 02/15/20 06:00 06:30 07:00 Temperature Pulse Rate 87 91 H 93 H Pulse Rate [ From Monitor] Respiratory 19 19 21 Rate Blood Pressure 96/74 100/73 101/80 O2 Sat by Pulse 95 94 97 Oximetry 02/15/20 02/15/20 02/15/20 07:30 08:00 08:02 Temperature 97.4 F L Pulse Rate 94 H 99 H Pulse Rate [ 106 H From Monitor] Respiratory 18 18 Rate Blood Pressure 108/81 105/83 O2 Sat by Pulse 95 85 95 Oximetry 02/15/20 02/15/20 02/15/20 08:30 09:00 11:47 Temperature Pulse Rate 95 H 108 H 121 H Pulse Rate [ From Monitor] Respiratory 22 22 21 Rate Blood Pressure 115/79 115/79 95/74 O2 Sat by Pulse 92 87 93 Oximetry 02/15/20 02/15/20 12:17 12:23 Temperature Pulse Rate 94 H 86 Pulse Rate [ From Monitor] Respiratory 24 Rate Blood Pressure 106/81 106/81 O2 Sat by Pulse 100 Oximetry Constitutional: appears uncomfortable, other (elelelderly and obese male, normocephalic with mildly increased respiratory effort at rest) Eyes: non-icteric ENT: oropharynx moist, other (+ midline tracheostomy) Neck: supple, no JVD Effort: mildly labored Ascultation: Bilateral: diminished breath sounds, rhonchi (and referred upper airway sounds) Percussion: Bilateral: not dull Cardiovascular: irregular rhythm, other (flow murmur) Gastrointestinal: normoactive bowel sounds, soft, non-tender, non-distended (protuberant), other (protuberant; PEG in place) Integumentary: normal Extremities: no cyanosis, pulses normal, no ischemia or petechiae, edema (bilateral upper ) Neurologic: non-focal exam (moves extremities), pupils equal and round, CN II- XII normal, unable to assess Psychiatric: anxious CBC and BMP: 02/15/20 06:59 02/16/20 07:53 ABG, PT/INR, D-dimer: ABG ABG pH 7.502 (7.320-7.450) H 02/11/20 14:11 POC ABG pCO2 34.8 mmHg (32.0-48.0) 02/11/20 14:11 ABG pCO2 54.1 mm Hg 02/09/20 21:40 POC ABG pO2 77.7 mmHg (83-108) L 02/11/20 14:11 ABG pO2 59.8 mm Hg (80.0-90.0) L 02/09/20 21:40 POC ABG HCO3 26.7 02/11/20 14:11 ABG O2 Saturation 88.9 % (95.0-99.0) L 02/09/20 21:40 PT/INR, D-dimer PT 27.0 Sec. (12.2-14.9) H 02/07/20 15:03 INR 2.46 (0.87-1.13) H 02/07/20 15:03 Abnormal lab findings: Abnormal Labs 11/24/19 11/24/19 11/24/19 02:53 02:53 03:45 WBC 14.3 H RBC Hgb Hct MCHC RDW 17.2 H MCV MCH Lymph % (Auto) [place] % (Auto) [place] # Eos # Lymph # (Auto) [place] # (Auto) Eos # (Auto) Seg Neutrophils % Seg Neuts % (Manual) Baso # (Auto) Lymphocytes % (Manual) Monocytes % (Manual) Eosinophils % (Manual) Basophils % (Manual) Seg Neutrophils # Seg Neutrophils # Man 8.3 H Lymphocytes # (Manual) Monocytes # (Manual) 0.9 H Eosinophils # (Manual) Nucleated RBC % Basophils # (Manual) PT INR APTT Heparin Anti-Xa Level ABG pH 7.313 L POC ABG pO2 ABG pO2 102.8 H ABG HCO3 ABG O2 Saturation ABG Base Excess -2.9 L POC ABG pCO2 ABG Hemoglobin ABG Oxyhemoglobin ABG Chloride ABG Glucose Oxyhemoglobin 93.9 L Sodium Potassium Chloride Carbon Dioxide BUN Creatinine Glucose 195 H POC Glucose Lactic Acid Calcium Phosphorus Magnesium AST ALT Lactate Dehydrogenase Total Bilirubin Direct Bilirubin CK-MB (CK-2) 4.3 H C-Reactive Protein NT-Pro-B Natriuret Pep 1181 H Total Protein Albumin Arterial Blood Glucose Urine WBC (Auto) Urine Creatinine 11/24/19 11/24/19 11/24/19 04:53 04:53 10:37 WBC RBC Hgb Hct MCHC RDW MCV MCH Lymph % (Auto) [place] % (Auto) [place] # Eos # Lymph # (Auto) [place] # (Auto) Eos # (Auto) Seg Neutrophils % Seg Neuts % (Manual) Baso # (Auto) Lymphocytes % (Manual) Monocytes % (Manual) Eosinophils % (Manual) Basophils % (Manual) Seg Neutrophils # Seg Neutrophils # Man Lymphocytes # (Manual) Monocytes # (Manual) Eosinophils # (Manual) Nucleated RBC % Basophils # (Manual) PT INR APTT Heparin Anti-Xa Level ABG pH POC ABG pO2 ABG pO2 ABG HCO3 ABG O2 Saturation ABG Base Excess POC ABG pCO2 ABG Hemoglobin ABG Oxyhemoglobin ABG Chloride ABG Glucose Oxyhemoglobin Sodium Potassium Chloride Carbon Dioxide BUN Creatinine Glucose 162 H POC Glucose Lactic Acid 2.40 H* 2.50 H* Calcium Phosphorus Magnesium AST ALT Lactate Dehydrogenase 240 H Total Bilirubin Direct Bilirubin CK-MB (CK-2) C-Reactive Protein NT-Pro-B Natriuret Pep Total Protein Albumin Arterial Blood Glucose Urine WBC (Auto) Urine Creatinine 11/24/19 11/24/19 11/24/19 12:21 14:50 19:54 WBC RBC Hgb Hct MCHC RDW MCV MCH Lymph % (Auto) [place] % (Auto) [place] # Eos # Lymph # (Auto) [place] # (Auto) Eos # (Auto) Seg Neutrophils % Seg Neuts % (Manual) Baso # (Auto) Lymphocytes % (Manual) Monocytes % (Manual) Eosinophils % (Manual) Basophils % (Manual) Seg Neutrophils # Seg Neutrophils # Man Lymphocytes # (Manual) Monocytes # (Manual) Eosinophils # (Manual) Nucleated RBC % Basophils # (Manual) PT INR APTT Heparin Anti-Xa Level ABG pH POC ABG pO2 ABG pO2 ABG HCO3 ABG O2 Saturation ABG Base Excess POC ABG pCO2 ABG Hemoglobin ABG Oxyhemoglobin ABG Chloride ABG Glucose Oxyhemoglobin Sodium Potassium Chloride Carbon Dioxide BUN Creatinine Glucose POC Glucose 145 H 143 H 124 H Lactic Acid Calcium Phosphorus Magnesium AST ALT Lactate Dehydrogenase Total Bilirubin Direct Bilirubin CK-MB (CK-2) C-Reactive Protein NT-Pro-B Natriuret Pep Total Protein Albumin Arterial Blood Glucose Urine WBC (Auto) Urine Creatinine 11/25/19 11/25/19 11/25/19 00:18 03:18 05:11 WBC 13.7 H RBC Hgb Hct MCHC RDW 17.1 H MCV MCH Lymph % (Auto) 10.8 L [place] % (Auto) 8.7 H [place] # 1.2 H Eos # Lymph # (Auto) [place] # (Auto) Eos # (Auto) Seg Neutrophils % 80.2 H Seg Neuts % (Manual) Baso # (Auto) Lymphocytes % (Manual) Monocytes % (Manual) Eosinophils % (Manual) Basophils % (Manual) Seg Neutrophils # 11.0 H Seg Neutrophils # Man Lymphocytes # (Manual) Monocytes # (Manual) Eosinophils # (Manual) Nucleated RBC % Basophils # (Manual) PT INR APTT Heparin Anti-Xa Level ABG pH 7.333 L POC ABG pO2 ABG pO2 61.2 L ABG HCO3 ABG O2 Saturation 90.2 L ABG Base Excess POC ABG pCO2 ABG Hemoglobin 13.7 L ABG Oxyhemoglobin ABG Chloride ABG Glucose Oxyhemoglobin 88.2 L Sodium Potassium Chloride Carbon Dioxide BUN Creatinine Glucose POC Glucose 109 H Lactic Acid Calcium Phosphorus Magnesium AST ALT Lactate Dehydrogenase Total Bilirubin Direct Bilirubin CK-MB (CK-2) C-Reactive Protein NT-Pro-B Natriuret Pep Total Protein Albumin Arterial Blood Glucose Urine WBC (Auto) Urine Creatinine 11/25/19 11/25/19 11/26/19 05:11 11:40 03:12 WBC RBC Hgb Hct MCHC RDW MCV MCH Lymph % (Auto) [place] % (Auto) [place] # Eos # Lymph # (Auto) [place] # (Auto) Eos # (Auto) Seg Neutrophils % Seg Neuts % (Manual) Baso # (Auto) Lymphocytes % (Manual) Monocytes % (Manual) Eosinophils % (Manual) Basophils % (Manual) Seg Neutrophils # Seg Neutrophils # Man Lymphocytes # (Manual) Monocytes # (Manual) Eosinophils # (Manual) Nucleated RBC % Basophils # (Manual) PT INR APTT Heparin Anti-Xa Level ABG pH POC ABG pO2 ABG pO2 155.1 H ABG HCO3 27.8 H ABG O2 Saturation ABG Base Excess POC ABG pCO2 ABG Hemoglobin 12.2 L ABG Oxyhemoglobin ABG Chloride ABG Glucose Oxyhemoglobin Sodium Potassium Chloride Carbon Dioxide BUN 23 H Creatinine Glucose 110 H POC Glucose 108 H Lactic Acid Calcium Phosphorus Magnesium AST ALT Lactate Dehydrogenase Total Bilirubin Direct Bilirubin CK-MB (CK-2) C-Reactive Protein NT-Pro-B Natriuret Pep Total Protein Albumin Arterial Blood Glucose Urine WBC (Auto) Urine Creatinine 11/26/19 11/26/19 11/26/19 06:17 10:43 10:43 WBC 11.4 H RBC Hgb Hct MCHC RDW 17.1 H MCV MCH Lymph % (Auto) [place] % (Auto) [place] # Eos # Lymph # (Auto) [place] # (Auto) Eos # (Auto) Seg Neutrophils % Seg Neuts % (Manual) Baso # (Auto) Lymphocytes % (Manual) Monocytes % (Manual) Eosinophils % (Manual) Basophils % (Manual) Seg Neutrophils # Seg Neutrophils # Man Lymphocytes # (Manual) Monocytes # (Manual) Eosinophils # (Manual) Nucleated RBC % Basophils # (Manual) PT INR APTT Heparin Anti-Xa Level ABG pH POC ABG pO2 ABG pO2 ABG HCO3 ABG O2 Saturation ABG Base Excess POC ABG pCO2 ABG Hemoglobin ABG Oxyhemoglobin ABG Chloride ABG Glucose Oxyhemoglobin Sodium Potassium Chloride Carbon Dioxide BUN 29 H Creatinine Glucose POC Glucose 107 H Lactic Acid Calcium Phosphorus Magnesium AST ALT Lactate Dehydrogenase Total Bilirubin Direct Bilirubin CK-MB (CK-2) C-Reactive Protein NT-Pro-B Natriuret Pep Total Protein Albumin Arterial Blood Glucose Urine WBC (Auto) Urine Creatinine 11/26/19 11/27/19 11/27/19 17:11 01:53 04:11 WBC RBC Hgb Hct MCHC RDW MCV MCH Lymph % (Auto) [place] % (Auto) [place] # Eos # Lymph # (Auto) [place] # (Auto) Eos # (Auto) Seg Neutrophils % Seg Neuts % (Manual) Baso # (Auto) Lymphocytes % (Manual) Monocytes % (Manual) Eosinophils % (Manual) Basophils % (Manual) Seg Neutrophils # Seg Neutrophils # Man Lymphocytes # (Manual) Monocytes # (Manual) Eosinophils # (Manual) Nucleated RBC % Basophils # (Manual) PT INR APTT Heparin Anti-Xa Level ABG pH POC ABG pO2 ABG pO2 ABG HCO3 29.2 H ABG O2 Saturation ABG Base Excess 3.4 H POC ABG pCO2 ABG Hemoglobin 13.3 L ABG Oxyhemoglobin ABG Chloride ABG Glucose Oxyhemoglobin 94.5 L Sodium Potassium Chloride Carbon Dioxide BUN Creatinine Glucose POC Glucose 113 H 108 H Lactic Acid Calcium Phosphorus Magnesium AST ALT Lactate Dehydrogenase Total Bilirubin Direct Bilirubin CK-MB (CK-2) C-Reactive Protein NT-Pro-B Natriuret Pep Total Protein Albumin Arterial Blood Glucose Urine WBC (Auto) Urine Creatinine 11/27/19 11/28/19 11/28/19 05:27 05:00 05:25 WBC RBC Hgb Hct MCHC RDW MCV MCH Lymph % (Auto) [place] % (Auto) [place] # Eos # Lymph # (Auto) [place] # (Auto) Eos # (Auto) Seg Neutrophils % Seg Neuts % (Manual) Baso # (Auto) Lymphocytes % (Manual) Monocytes % (Manual) Eosinophils % (Manual) Basophils % (Manual) Seg Neutrophils # Seg Neutrophils # Man Lymphocytes # (Manual) Monocytes # (Manual) Eosinophils # (Manual) Nucleated RBC % Basophils # (Manual) PT INR APTT Heparin Anti-Xa Level ABG pH POC ABG pO2 68.1 L ABG pO2 ABG HCO3 ABG O2 Saturation ABG Base Excess POC ABG pCO2 ABG Hemoglobin ABG Oxyhemoglobin 91.2 L ABG Chloride ABG Glucose Oxyhemoglobin Sodium Potassium Chloride Carbon Dioxide BUN Creatinine Glucose POC Glucose 111 H 110 H Lactic Acid Calcium Phosphorus Magnesium AST ALT Lactate Dehydrogenase Total Bilirubin Direct Bilirubin CK-MB (CK-2) C-Reactive Protein NT-Pro-B Natriuret Pep Total Protein Albumin Arterial Blood Glucose Urine WBC (Auto) Urine Creatinine 11/28/19 11/28/19 11/28/19 12:08 13:47 13:47 WBC 11.3 H RBC Hgb Hct MCHC RDW 16.1 H MCV MCH Lymph % (Auto) [place] % (Auto) 9.9 H [place] # 1.1 H Eos # Lymph # (Auto) [place] # (Auto) Eos # (Auto) Seg Neutrophils % 71.4 H Seg Neuts % (Manual) Baso # (Auto) Lymphocytes % (Manual) Monocytes % (Manual) Eosinophils % (Manual) Basophils % (Manual) Seg Neutrophils # 8.1 H Seg Neutrophils # Man Lymphocytes # (Manual) Monocytes # (Manual) Eosinophils # (Manual) Nucleated RBC % Basophils # (Manual) PT INR APTT Heparin Anti-Xa Level ABG pH POC ABG pO2 ABG pO2 ABG HCO3 ABG O2 Saturation ABG Base Excess POC ABG pCO2 ABG Hemoglobin ABG Oxyhemoglobin ABG Chloride ABG Glucose Oxyhemoglobin Sodium Potassium Chloride Carbon Dioxide BUN 23 H Creatinine Glucose 123 H POC Glucose 112 H Lactic Acid Calcium Phosphorus Magnesium AST ALT Lactate Dehydrogenase Total Bilirubin Direct Bilirubin CK-MB (CK-2) C-Reactive Protein NT-Pro-B Natriuret Pep Total Protein Albumin 3.7 L Arterial Blood Glucose Urine WBC (Auto) Urine Creatinine 11/28/19 11/29/19 11/29/19 17:26 03:55 17:04 WBC RBC Hgb Hct MCHC RDW MCV MCH Lymph % (Auto) [place] % (Auto) [place] # Eos # Lymph # (Auto) [place] # (Auto) Eos # (Auto) Seg Neutrophils % Seg Neuts % (Manual) Baso # (Auto) Lymphocytes % (Manual) Monocytes % (Manual) Eosinophils % (Manual) Basophils % (Manual) Seg Neutrophils # Seg Neutrophils # Man Lymphocytes # (Manual) Monocytes # (Manual) Eosinophils # (Manual) Nucleated RBC % Basophils # (Manual) PT INR APTT Heparin Anti-Xa Level ABG pH POC ABG pO2 ABG pO2 65.7 L ABG HCO3 28.3 H ABG O2 Saturation 93.9 L ABG Base Excess 3.6 H POC ABG pCO2 ABG Hemoglobin 13.3 L ABG Oxyhemoglobin ABG Chloride ABG Glucose Oxyhemoglobin 91.5 L Sodium Potassium Chloride Carbon Dioxide BUN Creatinine Glucose POC Glucose 123 H 119 H Lactic Acid Calcium Phosphorus Magnesium AST ALT Lactate Dehydrogenase Total Bilirubin Direct Bilirubin CK-MB (CK-2) C-Reactive Protein NT-Pro-B Natriuret Pep Total Protein Albumin Arterial Blood Glucose Urine WBC (Auto) Urine Creatinine 11/30/19 11/30/19 11/30/19 04:17 04:17 04:56 WBC 13.4 H RBC Hgb Hct MCHC RDW 15.6 H MCV MCH Lymph % (Auto) [place] % (Auto) [place] # Eos # Lymph # (Auto) [place] # (Auto) Eos # (Auto) Seg Neutrophils % Seg Neuts % (Manual) Baso # (Auto) Lymphocytes % (Manual) Monocytes % (Manual) Eosinophils % (Manual) Basophils % (Manual) Seg Neutrophils # Seg Neutrophils # Man Lymphocytes # (Manual) Monocytes # (Manual) Eosinophils # (Manual) Nucleated RBC % Basophils # (Manual) PT INR APTT Heparin Anti-Xa Level ABG pH POC ABG pO2 ABG pO2 56.3 L ABG HCO3 29.3 H ABG O2 Saturation 91.5 L ABG Base Excess 4.7 H POC ABG pCO2 ABG Hemoglobin 12.1 L ABG Oxyhemoglobin ABG Chloride ABG Glucose Oxyhemoglobin 89.2 L Sodium 147 H Potassium Chloride Carbon Dioxide BUN 30 H Creatinine Glucose 124 H POC Glucose Lactic Acid Calcium Phosphorus Magnesium AST ALT Lactate Dehydrogenase Total Bilirubin Direct Bilirubin CK-MB (CK-2) C-Reactive Protein NT-Pro-B Natriuret Pep Total Protein Albumin 3.8 L Arterial Blood Glucose Urine WBC (Auto) Urine Creatinine 11/30/19 11/30/19 11/30/19 05:51 11:54 18:17 WBC RBC Hgb Hct MCHC RDW MCV MCH Lymph % (Auto) [place] % (Auto) [place] # Eos # Lymph # (Auto) [place] # (Auto) Eos # (Auto) Seg Neutrophils % Seg Neuts % (Manual) Baso # (Auto) Lymphocytes % (Manual) Monocytes % (Manual) Eosinophils % (Manual) Basophils % (Manual) Seg Neutrophils # Seg Neutrophils # Man Lymphocytes # (Manual) Monocytes # (Manual) Eosinophils # (Manual) Nucleated RBC % Basophils # (Manual) PT INR APTT Heparin Anti-Xa Level ABG pH POC ABG pO2 ABG pO2 ABG HCO3 ABG O2 Saturation ABG Base Excess POC ABG pCO2 ABG Hemoglobin ABG Oxyhemoglobin ABG Chloride ABG Glucose Oxyhemoglobin Sodium Potassium Chloride Carbon Dioxide BUN Creatinine Glucose POC Glucose 127 H 115 H 143 H Lactic Acid Calcium Phosphorus Magnesium AST ALT Lactate Dehydrogenase Total Bilirubin Direct Bilirubin CK-MB (CK-2) C-Reactive Protein NT-Pro-B Natriuret Pep Total Protein Albumin Arterial Blood Glucose Urine WBC (Auto) Urine Creatinine 12/01/19 12/01/19 12/01/19 01:18 05:22 12:16 WBC RBC Hgb Hct MCHC RDW MCV MCH Lymph % (Auto) [place] % (Auto) [place] # Eos # Lymph # (Auto) [place] # (Auto) Eos # (Auto) Seg Neutrophils % Seg Neuts % (Manual) Baso # (Auto) Lymphocytes % (Manual) Monocytes % (Manual) Eosinophils % (Manual) Basophils % (Manual) Seg Neutrophils # Seg Neutrophils # Man Lymphocytes # (Manual) Monocytes # (Manual) Eosinophils # (Manual) Nucleated RBC % Basophils # (Manual) PT INR APTT Heparin Anti-Xa Level ABG pH POC ABG pO2 ABG pO2 ABG HCO3 ABG O2 Saturation ABG Base Excess POC ABG pCO2 ABG Hemoglobin ABG Oxyhemoglobin ABG Chloride ABG Glucose Oxyhemoglobin Sodium Potassium 3.5 L Chloride 107.8 H Carbon Dioxide BUN 37 H Creatinine Glucose 157 H POC Glucose 118 H 148 H Lactic Acid Calcium 8.2 L D Phosphorus Magnesium AST 48 H ALT 60 H Lactate Dehydrogenase 194 H Total Bilirubin Direct Bilirubin CK-MB (CK-2) C-Reactive Protein 8.50 H NT-Pro-B Natriuret Pep Total Protein 5.5 L Albumin 2.8 L Arterial Blood Glucose Urine WBC (Auto) Urine Creatinine 12/01/19 12/02/19 12/02/19 18:04 00:05 05:16 WBC 11.4 H RBC Hgb Hct MCHC RDW 15.9 H MCV MCH Lymph % (Auto) [place] % (Auto) 9.9 H [place] # 1.1 H Eos # Lymph # (Auto) [place] # (Auto) Eos # (Auto) Seg Neutrophils % 70.3 H Seg Neuts % (Manual) Baso # (Auto) Lymphocytes % (Manual) Monocytes % (Manual) Eosinophils % (Manual) Basophils % (Manual) Seg Neutrophils # 8.0 H Seg Neutrophils # Man Lymphocytes # (Manual) Monocytes # (Manual) Eosinophils # (Manual) Nucleated RBC % Basophils # (Manual) PT INR APTT Heparin Anti-Xa Level ABG pH POC ABG pO2 ABG pO2 ABG HCO3 ABG O2 Saturation ABG Base Excess POC ABG pCO2 ABG Hemoglobin ABG Oxyhemoglobin ABG Chloride ABG Glucose Oxyhemoglobin Sodium Potassium Chloride Carbon Dioxide BUN Creatinine Glucose POC Glucose 143 H 107 H Lactic Acid Calcium Phosphorus Magnesium AST ALT Lactate Dehydrogenase Total Bilirubin Direct Bilirubin CK-MB (CK-2) C-Reactive Protein NT-Pro-B Natriuret Pep Total Protein Albumin Arterial Blood Glucose Urine WBC (Auto) Urine Creatinine 12/02/19 12/02/19 12/02/19 05:16 06:03 11:52 WBC RBC Hgb Hct MCHC RDW MCV MCH Lymph % (Auto) [place] % (Auto) [place] # Eos # Lymph # (Auto) [place] # (Auto) Eos # (Auto) Seg Neutrophils % Seg Neuts % (Manual) Baso # (Auto) Lymphocytes % (Manual) Monocytes % (Manual) Eosinophils % (Manual) Basophils % (Manual) Seg Neutrophils # Seg Neutrophils # Man Lymphocytes # (Manual) Monocytes # (Manual) Eosinophils # (Manual) Nucleated RBC % Basophils # (Manual) PT INR APTT Heparin Anti-Xa Level ABG pH POC ABG pO2 ABG pO2 ABG HCO3 ABG O2 Saturation ABG Base Excess POC ABG pCO2 ABG Hemoglobin ABG Oxyhemoglobin ABG Chloride ABG Glucose Oxyhemoglobin Sodium 146 H Potassium Chloride Carbon Dioxide BUN 28 H Creatinine Glucose 123 H POC Glucose 110 H 152 H Lactic Acid Calcium Phosphorus Magnesium AST ALT Lactate Dehydrogenase Total Bilirubin Direct Bilirubin CK-MB (CK-2) C-Reactive Protein NT-Pro-B Natriuret Pep Total Protein Albumin Arterial Blood Glucose Urine WBC (Auto) Urine Creatinine 12/02/19 12/02/19 12/02/19 12:58 17:58 23:36 WBC RBC Hgb Hct MCHC RDW MCV MCH Lymph % (Auto) [place] % (Auto) [place] # Eos # Lymph # (Auto) [place] # (Auto) Eos # (Auto) Seg Neutrophils % Seg Neuts % (Manual) Baso # (Auto) Lymphocytes % (Manual) Monocytes % (Manual) Eosinophils % (Manual) Basophils % (Manual) Seg Neutrophils # Seg Neutrophils # Man Lymphocytes # (Manual) Monocytes # (Manual) Eosinophils # (Manual) Nucleated RBC % Basophils # (Manual) PT INR APTT Heparin Anti-Xa Level ABG pH POC ABG pO2 78.1 L ABG pO2 ABG HCO3 ABG O2 Saturation ABG Base Excess POC ABG pCO2 ABG Hemoglobin ABG Oxyhemoglobin ABG Chloride ABG Glucose Oxyhemoglobin Sodium Potassium Chloride Carbon Dioxide BUN Creatinine Glucose POC Glucose 120 H 123 H Lactic Acid Calcium Phosphorus Magnesium AST ALT Lactate Dehydrogenase Total Bilirubin Direct Bilirubin CK-MB (CK-2) C-Reactive Protein NT-Pro-B Natriuret Pep Total Protein Albumin Arterial Blood Glucose Urine WBC (Auto) Urine Creatinine 12/03/19 12/03/19 12/03/19 06:03 06:14 11:46 WBC RBC Hgb Hct MCHC RDW MCV MCH Lymph % (Auto) [place] % (Auto) [place] # Eos # Lymph # (Auto) [place] # (Auto) Eos # (Auto) Seg Neutrophils % Seg Neuts % (Manual) Baso # (Auto) Lymphocytes % (Manual) Monocytes % (Manual) Eosinophils % (Manual) Basophils % (Manual) Seg Neutrophils # Seg Neutrophils # Man Lymphocytes # (Manual) Monocytes # (Manual) Eosinophils # (Manual) Nucleated RBC % Basophils # (Manual) PT INR APTT Heparin Anti-Xa Level ABG pH POC ABG pO2 ABG pO2 ABG HCO3 ABG O2 Saturation ABG Base Excess POC ABG pCO2 ABG Hemoglobin ABG Oxyhemoglobin ABG Chloride ABG Glucose Oxyhemoglobin Sodium Potassium Chloride Carbon Dioxide BUN Creatinine Glucose POC Glucose 142 H 130 H Lactic Acid Calcium Phosphorus Magnesium AST ALT Lactate Dehydrogenase Total Bilirubin Direct Bilirubin CK-MB (CK-2) C-Reactive Protein NT-Pro-B Natriuret Pep Total Protein Albumin Arterial Blood Glucose Urine WBC (Auto) 8.0 H Urine Creatinine 12/03/19 12/03/19 12/04/19 15:50 17:39 00:04 WBC RBC Hgb Hct MCHC RDW MCV MCH Lymph % (Auto) [place] % (Auto) [place] # Eos # Lymph # (Auto) [place] # (Auto) Eos # (Auto) Seg Neutrophils % Seg Neuts % (Manual) Baso # (Auto) Lymphocytes % (Manual) Monocytes % (Manual) Eosinophils % (Manual) Basophils % (Manual) Seg Neutrophils # Seg Neutrophils # Man Lymphocytes # (Manual) Monocytes # (Manual) Eosinophils # (Manual) Nucleated RBC % Basophils # (Manual) PT INR APTT Heparin Anti-Xa Level ABG pH POC ABG pO2 ABG pO2 ABG HCO3 ABG O2 Saturation ABG Base Excess POC ABG pCO2 ABG Hemoglobin ABG Oxyhemoglobin ABG Chloride ABG Glucose Oxyhemoglobin Sodium Potassium Chloride Carbon Dioxide BUN Creatinine Glucose POC Glucose 146 H 133 H Lactic Acid Calcium Phosphorus 2.40 L Magnesium AST ALT Lactate Dehydrogenase Total Bilirubin Direct Bilirubin CK-MB (CK-2) C-Reactive Protein NT-Pro-B Natriuret Pep Total Protein Albumin Arterial Blood Glucose Urine WBC (Auto) Urine Creatinine 12/04/19 12/04/19 12/04/19 03:58 03:58 05:22 WBC 12.5 H RBC Hgb 11.2 L Hct 35.2 L MCHC RDW 16.0 H MCV MCH Lymph % (Auto) [place] % (Auto) 9.6 H [place] # 1.2 H Eos # 0.5 H Lymph # (Auto) [place] # (Auto) Eos # (Auto) Seg Neutrophils % Seg Neuts % (Manual) Baso # (Auto) Lymphocytes % (Manual) Monocytes % (Manual) Eosinophils % (Manual) Basophils % (Manual) Seg Neutrophils # 8.6 H Seg Neutrophils # Man Lymphocytes # (Manual) Monocytes # (Manual) Eosinophils # (Manual) Nucleated RBC % Basophils # (Manual) PT INR APTT Heparin Anti-Xa Level ABG pH POC ABG pO2 ABG pO2 ABG HCO3 ABG O2 Saturation ABG Base Excess POC ABG pCO2 ABG Hemoglobin ABG Oxyhemoglobin ABG Chloride ABG Glucose Oxyhemoglobin Sodium 146 H Potassium Chloride 108.6 H Carbon Dioxide BUN 30 H Creatinine 0.7 L Glucose 121 H POC Glucose 132 H Lactic Acid Calcium Phosphorus Magnesium AST ALT Lactate Dehydrogenase Total Bilirubin Direct Bilirubin CK-MB (CK-2) C-Reactive Protein NT-Pro-B Natriuret Pep Total Protein Albumin Arterial Blood Glucose Urine WBC (Auto) Urine Creatinine 12/04/19 12/04/19 12/05/19 13:26 18:43 00:19 WBC RBC Hgb Hct MCHC RDW MCV MCH Lymph % (Auto) [place] % (Auto) [place] # Eos # Lymph # (Auto) [place] # (Auto) Eos # (Auto) Seg Neutrophils % Seg Neuts % (Manual) Baso # (Auto) Lymphocytes % (Manual) Monocytes % (Manual) Eosinophils % (Manual) Basophils % (Manual) Seg Neutrophils # Seg Neutrophils # Man Lymphocytes # (Manual) Monocytes # (Manual) Eosinophils # (Manual) Nucleated RBC % Basophils # (Manual) PT INR APTT Heparin Anti-Xa Level ABG pH POC ABG pO2 ABG pO2 ABG HCO3 ABG O2 Saturation ABG Base Excess POC ABG pCO2 ABG Hemoglobin ABG Oxyhemoglobin ABG Chloride ABG Glucose Oxyhemoglobin Sodium Potassium Chloride Carbon Dioxide BUN Creatinine Glucose POC Glucose 185 H 156 H 150 H Lactic Acid Calcium Phosphorus Magnesium AST ALT Lactate Dehydrogenase Total Bilirubin Direct Bilirubin CK-MB (CK-2) C-Reactive Protein NT-Pro-B Natriuret Pep Total Protein Albumin Arterial Blood Glucose Urine WBC (Auto) Urine Creatinine 12/05/19 12/05/19 12/05/19 03:37 03:37 05:14 WBC 16.3 H RBC Hgb 11.4 L Hct MCHC RDW 15.6 H MCV MCH Lymph % (Auto) 9.9 L [place] % (Auto) 9.7 H [place] # 1.6 H Eos # Lymph # (Auto) [place] # (Auto) Eos # (Auto) Seg Neutrophils % 78.0 H Seg Neuts % (Manual) Baso # (Auto) Lymphocytes % (Manual) Monocytes % (Manual) Eosinophils % (Manual) Basophils % (Manual) Seg Neutrophils # 12.7 H Seg Neutrophils # Man Lymphocytes # (Manual) Monocytes # (Manual) Eosinophils # (Manual) Nucleated RBC % Basophils # (Manual) PT INR APTT Heparin Anti-Xa Level ABG pH POC ABG pO2 ABG pO2 ABG HCO3 ABG O2 Saturation ABG Base Excess POC ABG pCO2 ABG Hemoglobin ABG Oxyhemoglobin ABG Chloride ABG Glucose Oxyhemoglobin Sodium 146 H Potassium Chloride 107.2 H Carbon Dioxide BUN 27 H Creatinine 0.7 L Glucose 171 H POC Glucose 168 H Lactic Acid Calcium Phosphorus Magnesium AST ALT Lactate Dehydrogenase Total Bilirubin Direct Bilirubin CK-MB (CK-2) C-Reactive Protein NT-Pro-B Natriuret Pep Total Protein Albumin Arterial Blood Glucose Urine WBC (Auto) Urine Creatinine 12/05/19 12/05/19 12/05/19 12:31 18:10 23:58 WBC RBC Hgb Hct MCHC RDW MCV MCH Lymph % (Auto) [place] % (Auto) [place] # Eos # Lymph # (Auto) [place] # (Auto) Eos # (Auto) Seg Neutrophils % Seg Neuts % (Manual) Baso # (Auto) Lymphocytes % (Manual) Monocytes % (Manual) Eosinophils % (Manual) Basophils % (Manual) Seg Neutrophils # Seg Neutrophils # Man Lymphocytes # (Manual) Monocytes # (Manual) Eosinophils # (Manual) Nucleated RBC % Basophils # (Manual) PT INR APTT Heparin Anti-Xa Level ABG pH POC ABG pO2 ABG pO2 ABG HCO3 ABG O2 Saturation ABG Base Excess POC ABG pCO2 ABG Hemoglobin ABG Oxyhemoglobin ABG Chloride ABG Glucose Oxyhemoglobin Sodium Potassium Chloride Carbon Dioxide BUN Creatinine Glucose POC Glucose 159 H 198 H 115 H Lactic Acid Calcium Phosphorus Magnesium AST ALT Lactate Dehydrogenase Total Bilirubin Direct Bilirubin CK-MB (CK-2) C-Reactive Protein NT-Pro-B Natriuret Pep Total Protein Albumin Arterial Blood Glucose Urine WBC (Auto) Urine Creatinine 12/06/19 12/06/19 12/06/19 05:24 05:24 05:25 WBC 14.9 H RBC Hgb 10.8 L Hct 34.0 L MCHC RDW 15.6 H MCV MCH Lymph % (Auto) 10.7 L [place] % (Auto) 8.3 H [place] # 1.2 H Eos # Lymph # (Auto) [place] # (Auto) Eos # (Auto) Seg Neutrophils % 78.7 H Seg Neuts % (Manual) Baso # (Auto) Lymphocytes % (Manual) Monocytes % (Manual) Eosinophils % (Manual) Basophils % (Manual) Seg Neutrophils # 11.7 H Seg Neutrophils # Man Lymphocytes # (Manual) Monocytes # (Manual) Eosinophils # (Manual) Nucleated RBC % Basophils # (Manual) PT INR APTT Heparin Anti-Xa Level ABG pH POC ABG pO2 ABG pO2 ABG HCO3 ABG O2 Saturation ABG Base Excess POC ABG pCO2 ABG Hemoglobin ABG Oxyhemoglobin ABG Chloride ABG Glucose Oxyhemoglobin Sodium 148 H Potassium 5.1 H Chloride 107.6 H Carbon Dioxide BUN 27 H Creatinine 0.7 L Glucose 155 H POC Glucose 157 H Lactic Acid Calcium Phosphorus Magnesium AST ALT Lactate Dehydrogenase Total Bilirubin Direct Bilirubin CK-MB (CK-2) C-Reactive Protein NT-Pro-B Natriuret Pep Total Protein Albumin Arterial Blood Glucose Urine WBC (Auto) Urine Creatinine 12/07/19 12/07/19 12/07/19 00:13 05:34 11:33 WBC RBC Hgb Hct MCHC RDW MCV MCH Lymph % (Auto) [place] % (Auto) [place] # Eos # Lymph # (Auto) [place] # (Auto) Eos # (Auto) Seg Neutrophils % Seg Neuts % (Manual) Baso # (Auto) Lymphocytes % (Manual) Monocytes % (Manual) Eosinophils % (Manual) Basophils % (Manual) Seg Neutrophils # Seg Neutrophils # Man Lymphocytes # (Manual) Monocytes # (Manual) Eosinophils # (Manual) Nucleated RBC % Basophils # (Manual) PT INR APTT Heparin Anti-Xa Level ABG pH POC ABG pO2 ABG pO2 ABG HCO3 ABG O2 Saturation ABG Base Excess POC ABG pCO2 ABG Hemoglobin ABG Oxyhemoglobin ABG Chloride ABG Glucose Oxyhemoglobin Sodium Potassium Chloride Carbon Dioxide BUN Creatinine Glucose POC Glucose 142 H 111 H 169 H Lactic Acid Calcium Phosphorus Magnesium AST ALT Lactate Dehydrogenase Total Bilirubin Direct Bilirubin CK-MB (CK-2) C-Reactive Protein NT-Pro-B Natriuret Pep Total Protein Albumin Arterial Blood Glucose Urine WBC (Auto) Urine Creatinine 12/07/19 12/07/19 12/07/19 12:41 13:25 18:19 WBC 12.4 H RBC 3.53 L Hgb 10.2 L Hct 32.1 L MCHC RDW 15.3 H MCV MCH Lymph % (Auto) 10.6 L [place] % (Auto) 7.8 H [place] # 1.0 H Eos # Lymph # (Auto) [place] # (Auto) Eos # (Auto) Seg Neutrophils % 77.6 H Seg Neuts % (Manual) Baso # (Auto) Lymphocytes % (Manual) Monocytes % (Manual) Eosinophils % (Manual) Basophils % (Manual) Seg Neutrophils # 9.6 H Seg Neutrophils # Man Lymphocytes # (Manual) Monocytes # (Manual) Eosinophils # (Manual) Nucleated RBC % Basophils # (Manual) PT INR APTT Heparin Anti-Xa Level ABG pH POC ABG pO2 ABG pO2 ABG HCO3 ABG O2 Saturation ABG Base Excess POC ABG pCO2 ABG Hemoglobin ABG Oxyhemoglobin ABG Chloride ABG Glucose Oxyhemoglobin Sodium 149 H Potassium Chloride 108.4 H Carbon Dioxide BUN 26 H Creatinine 0.6 L Glucose 149 H POC Glucose 164 H Lactic Acid Calcium Phosphorus Magnesium 2.60 H AST 121 H ALT 145 H Lactate Dehydrogenase Total Bilirubin Direct Bilirubin CK-MB (CK-2) C-Reactive Protein NT-Pro-B Natriuret Pep Total Protein Albumin 2.6 L Arterial Blood Glucose Urine WBC (Auto) Urine Creatinine 12/07/19 12/08/19 12/08/19 22:25 00:02 03:55 WBC 13.3 H RBC 3.40 L Hgb 9.7 L Hct 30.8 L MCHC 31 L RDW 15.5 H MCV MCH Lymph % (Auto) [place] % (Auto) 8.1 H [place] # 1.1 H Eos # Lymph # (Auto) [place] # (Auto) Eos # (Auto) Seg Neutrophils % 73.0 H Seg Neuts % (Manual) Baso # (Auto) Lymphocytes % (Manual) Monocytes % (Manual) Eosinophils % (Manual) Basophils % (Manual) Seg Neutrophils # 9.7 H Seg Neutrophils # Man Lymphocytes # (Manual) Monocytes # (Manual) Eosinophils # (Manual) Nucleated RBC % Basophils # (Manual) PT INR APTT Heparin Anti-Xa Level 0.12 L ABG pH POC ABG pO2 ABG pO2 ABG HCO3 ABG O2 Saturation ABG Base Excess POC ABG pCO2 ABG Hemoglobin ABG Oxyhemoglobin ABG Chloride ABG Glucose Oxyhemoglobin Sodium Potassium Chloride Carbon Dioxide BUN Creatinine Glucose POC Glucose 151 H Lactic Acid Calcium Phosphorus Magnesium AST ALT Lactate Dehydrogenase Total Bilirubin Direct Bilirubin CK-MB (CK-2) C-Reactive Protein NT-Pro-B Natriuret Pep Total Protein Albumin Arterial Blood Glucose Urine WBC (Auto) Urine Creatinine 12/08/19 12/08/19 12/08/19 03:55 05:21 06:01 WBC RBC Hgb Hct MCHC RDW MCV MCH Lymph % (Auto) [place] % (Auto) [place] # Eos # Lymph # (Auto) [place] # (Auto) Eos # (Auto) Seg Neutrophils % Seg Neuts % (Manual) Baso # (Auto) Lymphocytes % (Manual) Monocytes % (Manual) Eosinophils % (Manual) Basophils % (Manual) Seg Neutrophils # Seg Neutrophils # Man Lymphocytes # (Manual) Monocytes # (Manual) Eosinophils # (Manual) Nucleated RBC % Basophils # (Manual) PT INR APTT Heparin Anti-Xa Level 0.20 L ABG pH POC ABG pO2 ABG pO2 ABG HCO3 ABG O2 Saturation ABG Base Excess POC ABG pCO2 ABG Hemoglobin ABG Oxyhemoglobin ABG Chloride ABG Glucose Oxyhemoglobin Sodium 149 H Potassium Chloride 108.0 H Carbon Dioxide BUN 28 H Creatinine 0.6 L Glucose 144 H POC Glucose 143 H Lactic Acid Calcium Phosphorus Magnesium AST 98 H ALT 145 H Lactate Dehydrogenase Total Bilirubin Direct Bilirubin CK-MB (CK-2) C-Reactive Protein NT-Pro-B Natriuret Pep Total Protein 6.0 L Albumin 2.4 L Arterial Blood Glucose Urine WBC (Auto) Urine Creatinine 12/08/19 12/08/19 12/08/19 12:08 18:11 23:53 WBC RBC Hgb Hct MCHC RDW MCV MCH Lymph % (Auto) [place] % (Auto) [place] # Eos # Lymph # (Auto) [place] # (Auto) Eos # (Auto) Seg Neutrophils % Seg Neuts % (Manual) Baso # (Auto) Lymphocytes % (Manual) Monocytes % (Manual) Eosinophils % (Manual) Basophils % (Manual) Seg Neutrophils # Seg Neutrophils # Man Lymphocytes # (Manual) Monocytes # (Manual) Eosinophils # (Manual) Nucleated RBC % Basophils # (Manual) PT INR APTT Heparin Anti-Xa Level ABG pH POC ABG pO2 ABG pO2 ABG HCO3 ABG O2 Saturation ABG Base Excess POC ABG pCO2 ABG Hemoglobin ABG Oxyhemoglobin ABG Chloride ABG Glucose Oxyhemoglobin Sodium Potassium Chloride Carbon Dioxide BUN Creatinine Glucose POC Glucose 172 H 122 H 162 H Lactic Acid Calcium Phosphorus Magnesium AST ALT Lactate Dehydrogenase Total Bilirubin Direct Bilirubin CK-MB (CK-2) C-Reactive Protein NT-Pro-B Natriuret Pep Total Protein Albumin Arterial Blood Glucose Urine WBC (Auto) Urine Creatinine 12/09/19 12/09/19 12/09/19 04:03 04:03 05:53 WBC RBC Hgb 9.1 L Hct 28.9 L MCHC RDW MCV MCH Lymph % (Auto) [place] % (Auto) [place] # Eos # Lymph # (Auto) [place] # (Auto) Eos # (Auto) Seg Neutrophils % Seg Neuts % (Manual) Baso # (Auto) Lymphocytes % (Manual) Monocytes % (Manual) Eosinophils % (Manual) Basophils % (Manual) Seg Neutrophils # Seg Neutrophils # Man Lymphocytes # (Manual) Monocytes # (Manual) Eosinophils # (Manual) Nucleated RBC % Basophils # (Manual) PT INR APTT Heparin Anti-Xa Level 0.15 L ABG pH POC ABG pO2 ABG pO2 ABG HCO3 ABG O2 Saturation ABG Base Excess POC ABG pCO2 ABG Hemoglobin ABG Oxyhemoglobin ABG Chloride ABG Glucose Oxyhemoglobin Sodium Potassium Chloride Carbon Dioxide BUN Creatinine Glucose POC Glucose 124 H Lactic Acid Calcium Phosphorus Magnesium AST ALT Lactate Dehydrogenase Total Bilirubin Direct Bilirubin CK-MB (CK-2) C-Reactive Protein NT-Pro-B Natriuret Pep Total Protein Albumin Arterial Blood Glucose Urine WBC (Auto) Urine Creatinine 12/09/19 12/09/19 12/10/19 09:43 12:41 00:13 WBC RBC Hgb Hct MCHC RDW MCV MCH Lymph % (Auto) [place] % (Auto) [place] # Eos # Lymph # (Auto) [place] # (Auto) Eos # (Auto) Seg Neutrophils % Seg Neuts % (Manual) Baso # (Auto) Lymphocytes % (Manual) Monocytes % (Manual) Eosinophils % (Manual) Basophils % (Manual) Seg Neutrophils # Seg Neutrophils # Man Lymphocytes # (Manual) Monocytes # (Manual) Eosinophils # (Manual) Nucleated RBC % Basophils # (Manual) PT INR APTT Heparin Anti-Xa Level ABG pH POC ABG pO2 ABG pO2 ABG HCO3 ABG O2 Saturation ABG Base Excess POC ABG pCO2 ABG Hemoglobin ABG Oxyhemoglobin ABG Chloride ABG Glucose Oxyhemoglobin Sodium Potassium Chloride Carbon Dioxide BUN 25 H Creatinine 0.6 L Glucose 131 H POC Glucose 109 H 120 H Lactic Acid Calcium Phosphorus Magnesium AST ALT Lactate Dehydrogenase Total Bilirubin Direct Bilirubin CK-MB (CK-2) C-Reactive Protein NT-Pro-B Natriuret Pep Total Protein Albumin Arterial Blood Glucose Urine WBC (Auto) Urine Creatinine 12/10/19 12/10/19 12/10/19 04:14 04:14 12:00 WBC 13.3 H RBC 3.34 L Hgb 9.6 L Hct 30.4 L MCHC RDW 15.4 H MCV MCH Lymph % (Auto) [place] % (Auto) [place] # Eos # Lymph # (Auto) [place] # (Auto) Eos # (Auto) Seg Neutrophils % Seg Neuts % (Manual) 75.0 H Baso # (Auto) Lymphocytes % (Manual) 13.0 L Monocytes % (Manual) 8.0 H Eosinophils % (Manual) Basophils % (Manual) 2.0 H Seg Neutrophils # Seg Neutrophils # Man 10.0 H Lymphocytes # (Manual) Monocytes # (Manual) 1.1 H Eosinophils # (Manual) Nucleated RBC % Basophils # (Manual) 0.3 H PT INR APTT Heparin Anti-Xa Level ABG pH POC ABG pO2 ABG pO2 ABG HCO3 ABG O2 Saturation ABG Base Excess POC ABG pCO2 ABG Hemoglobin ABG Oxyhemoglobin ABG Chloride ABG Glucose Oxyhemoglobin Sodium 147 H Potassium Chloride 108.3 H Carbon Dioxide BUN 21 H Creatinine 0.6 L Glucose 104 H POC Glucose 133 H Lactic Acid Calcium Phosphorus Magnesium AST ALT Lactate Dehydrogenase Total Bilirubin Direct Bilirubin CK-MB (CK-2) C-Reactive Protein NT-Pro-B Natriuret Pep Total Protein Albumin Arterial Blood Glucose Urine WBC (Auto) Urine Creatinine 12/10/19 12/10/19 12/11/19 18:44 21:20 00:08 WBC 14.9 H RBC 3.36 L Hgb 9.6 L Hct 30.5 L MCHC RDW 15.4 H MCV MCH Lymph % (Auto) [place] % (Auto) [place] # Eos # Lymph # (Auto) [place] # (Auto) Eos # (Auto) Seg Neutrophils % Seg Neuts % (Manual) Baso # (Auto) Lymphocytes % (Manual) Monocytes % (Manual) Eosinophils % (Manual) Basophils % (Manual) Seg Neutrophils # Seg Neutrophils # Man Lymphocytes # (Manual) Monocytes # (Manual) Eosinophils # (Manual) Nucleated RBC % Basophils # (Manual) PT INR APTT Heparin Anti-Xa Level ABG pH POC ABG pO2 ABG pO2 ABG HCO3 ABG O2 Saturation ABG Base Excess POC ABG pCO2 ABG Hemoglobin ABG Oxyhemoglobin ABG Chloride ABG Glucose Oxyhemoglobin Sodium Potassium Chloride Carbon Dioxide BUN Creatinine Glucose POC Glucose 119 H 134 H Lactic Acid Calcium Phosphorus Magnesium AST ALT Lactate Dehydrogenase Total Bilirubin Direct Bilirubin CK-MB (CK-2) C-Reactive Protein NT-Pro-B Natriuret Pep Total Protein Albumin Arterial Blood Glucose Urine WBC (Auto) Urine Creatinine 12/11/19 12/11/19 12/11/19 03:54 07:28 08:36 WBC 11.9 H RBC 3.25 L Hgb 9.6 L Hct 29.2 L MCHC RDW 15.7 H MCV MCH Lymph % (Auto) [place] % (Auto) [place] # Eos # Lymph # (Auto) [place] # (Auto) Eos # (Auto) Seg Neutrophils % Seg Neuts % (Manual) Baso # (Auto) Lymphocytes % (Manual) Monocytes % (Manual) Eosinophils % (Manual) Basophils % (Manual) Seg Neutrophils # Seg Neutrophils # Man Lymphocytes # (Manual) Monocytes # (Manual) Eosinophils # (Manual) Nucleated RBC % Basophils # (Manual) PT INR APTT Heparin Anti-Xa Level 0.10 L 0.16 L ABG pH POC ABG pO2 ABG pO2 ABG HCO3 ABG O2 Saturation ABG Base Excess POC ABG pCO2 ABG Hemoglobin ABG Oxyhemoglobin ABG Chloride ABG Glucose Oxyhemoglobin Sodium Potassium Chloride Carbon Dioxide BUN Creatinine Glucose POC Glucose Lactic Acid Calcium Phosphorus Magnesium AST ALT Lactate Dehydrogenase Total Bilirubin Direct Bilirubin CK-MB (CK-2) C-Reactive Protein NT-Pro-B Natriuret Pep Total Protein Albumin Arterial Blood Glucose Urine WBC (Auto) Urine Creatinine 12/11/19 12/11/19 12/11/19 08:36 11:45 17:15 WBC RBC Hgb Hct MCHC RDW MCV MCH Lymph % (Auto) [place] % (Auto) [place] # Eos # Lymph # (Auto) [place] # (Auto) Eos # (Auto) Seg Neutrophils % Seg Neuts % (Manual) Baso # (Auto) Lymphocytes % (Manual) Monocytes % (Manual) Eosinophils % (Manual) Basophils % (Manual) Seg Neutrophils # Seg Neutrophils # Man Lymphocytes # (Manual) Monocytes # (Manual) Eosinophils # (Manual) Nucleated RBC % Basophils # (Manual) PT INR APTT Heparin Anti-Xa Level ABG pH POC ABG pO2 ABG pO2 ABG HCO3 ABG O2 Saturation ABG Base Excess POC ABG pCO2 ABG Hemoglobin ABG Oxyhemoglobin ABG Chloride ABG Glucose Oxyhemoglobin Sodium Potassium Chloride Carbon Dioxide BUN Creatinine 0.5 L Glucose 128 H POC Glucose 136 H 109 H Lactic Acid Calcium Phosphorus Magnesium AST ALT Lactate Dehydrogenase Total Bilirubin Direct Bilirubin CK-MB (CK-2) C-Reactive Protein NT-Pro-B Natriuret Pep Total Protein Albumin Arterial Blood Glucose Urine WBC (Auto) Urine Creatinine 12/12/19 12/12/19 12/12/19 00:03 05:53 05:53 WBC RBC Hgb 8.8 L Hct 27.6 L MCHC RDW MCV MCH Lymph % (Auto) [place] % (Auto) [place] # Eos # Lymph # (Auto) [place] # (Auto) Eos # (Auto) Seg Neutrophils % Seg Neuts % (Manual) Baso # (Auto) Lymphocytes % (Manual) Monocytes % (Manual) Eosinophils % (Manual) Basophils % (Manual) Seg Neutrophils # Seg Neutrophils # Man Lymphocytes # (Manual) Monocytes # (Manual) Eosinophils # (Manual) Nucleated RBC % Basophils # (Manual) PT INR APTT Heparin Anti-Xa Level 0.22 L ABG pH POC ABG pO2 ABG pO2 ABG HCO3 ABG O2 Saturation ABG Base Excess POC ABG pCO2 ABG Hemoglobin ABG Oxyhemoglobin ABG Chloride ABG Glucose Oxyhemoglobin Sodium Potassium Chloride Carbon Dioxide BUN Creatinine Glucose POC Glucose 116 H Lactic Acid Calcium Phosphorus Magnesium AST ALT Lactate Dehydrogenase Total Bilirubin Direct Bilirubin CK-MB (CK-2) C-Reactive Protein NT-Pro-B Natriuret Pep Total Protein Albumin Arterial Blood Glucose Urine WBC (Auto) Urine Creatinine 12/12/19 12/12/19 12/12/19 09:38 12:18 17:44 WBC RBC Hgb Hct MCHC RDW MCV MCH Lymph % (Auto) [place] % (Auto) [place] # Eos # Lymph # (Auto) [place] # (Auto) Eos # (Auto) Seg Neutrophils % Seg Neuts % (Manual) Baso # (Auto) Lymphocytes % (Manual) Monocytes % (Manual) Eosinophils % (Manual) Basophils % (Manual) Seg Neutrophils # Seg Neutrophils # Man Lymphocytes # (Manual) Monocytes # (Manual) Eosinophils # (Manual) Nucleated RBC % Basophils # (Manual) PT INR APTT Heparin Anti-Xa Level ABG pH POC ABG pO2 ABG pO2 ABG HCO3 ABG O2 Saturation ABG Base Excess POC ABG pCO2 ABG Hemoglobin ABG Oxyhemoglobin ABG Chloride ABG Glucose Oxyhemoglobin Sodium Potassium Chloride Carbon Dioxide BUN Creatinine Glucose POC Glucose 115 H 146 H 146 H Lactic Acid Calcium Phosphorus Magnesium AST ALT Lactate Dehydrogenase Total Bilirubin Direct Bilirubin CK-MB (CK-2) C-Reactive Protein NT-Pro-B Natriuret Pep Total Protein Albumin Arterial Blood Glucose Urine WBC (Auto) Urine Creatinine 12/12/19 12/13/19 12/13/19 23:33 05:32 05:32 WBC 13.1 H RBC 3.27 L Hgb 9.5 L Hct 29.3 L MCHC RDW 15.6 H MCV MCH Lymph % (Auto) [place] % (Auto) [place] # Eos # Lymph # (Auto) [place] # (Auto) Eos # (Auto) Seg Neutrophils % Seg Neuts % (Manual) 74.0 H Baso # (Auto) Lymphocytes % (Manual) 8.0 L Monocytes % (Manual) 9.0 H Eosinophils % (Manual) 5.0 H Basophils % (Manual) Seg Neutrophils # Seg Neutrophils # Man 9.7 H Lymphocytes # (Manual) 1.0 L Monocytes # (Manual) 1.2 H Eosinophils # (Manual) 0.7 H Nucleated RBC % Basophils # (Manual) PT INR APTT Heparin Anti-Xa Level 0.20 L ABG pH POC ABG pO2 ABG pO2 ABG HCO3 ABG O2 Saturation ABG Base Excess POC ABG pCO2 ABG Hemoglobin ABG Oxyhemoglobin ABG Chloride ABG Glucose Oxyhemoglobin Sodium Potassium Chloride Carbon Dioxide BUN Creatinine Glucose POC Glucose 126 H Lactic Acid Calcium Phosphorus Magnesium AST ALT Lactate Dehydrogenase Total Bilirubin Direct Bilirubin CK-MB (CK-2) C-Reactive Protein NT-Pro-B Natriuret Pep Total Protein Albumin Arterial Blood Glucose Urine WBC (Auto) Urine Creatinine 12/13/19 12/13/19 12/13/19 05:32 05:46 11:57 WBC RBC Hgb Hct MCHC RDW MCV MCH Lymph % (Auto) [place] % (Auto) [place] # Eos # Lymph # (Auto) [place] # (Auto) Eos # (Auto) Seg Neutrophils % Seg Neuts % (Manual) Baso # (Auto) Lymphocytes % (Manual) Monocytes % (Manual) Eosinophils % (Manual) Basophils % (Manual) Seg Neutrophils # Seg Neutrophils # Man Lymphocytes # (Manual) Monocytes # (Manual) Eosinophils # (Manual) Nucleated RBC % Basophils # (Manual) PT INR APTT Heparin Anti-Xa Level ABG pH POC ABG pO2 ABG pO2 ABG HCO3 ABG O2 Saturation ABG Base Excess POC ABG pCO2 ABG Hemoglobin ABG Oxyhemoglobin ABG Chloride ABG Glucose Oxyhemoglobin Sodium Potassium Chloride Carbon Dioxide 31 H BUN Creatinine 0.6 L Glucose 114 H POC Glucose 118 H 133 H Lactic Acid Calcium Phosphorus Magnesium AST ALT Lactate Dehydrogenase Total Bilirubin Direct Bilirubin CK-MB (CK-2) C-Reactive Protein NT-Pro-B Natriuret Pep Total Protein Albumin Arterial Blood Glucose Urine WBC (Auto) Urine Creatinine 12/13/19 12/13/19 12/14/19 17:44 23:46 05:32 WBC RBC Hgb Hct MCHC RDW MCV MCH Lymph % (Auto) [place] % (Auto) [place] # Eos # Lymph # (Auto) [place] # (Auto) Eos # (Auto) Seg Neutrophils % Seg Neuts % (Manual) Baso # (Auto) Lymphocytes % (Manual) Monocytes % (Manual) Eosinophils % (Manual) Basophils % (Manual) Seg Neutrophils # Seg Neutrophils # Man Lymphocytes # (Manual) Monocytes # (Manual) Eosinophils # (Manual) Nucleated RBC % Basophils # (Manual) PT INR APTT Heparin Anti-Xa Level ABG pH POC ABG pO2 ABG pO2 ABG HCO3 ABG O2 Saturation ABG Base Excess POC ABG pCO2 ABG Hemoglobin ABG Oxyhemoglobin ABG Chloride ABG Glucose Oxyhemoglobin Sodium Potassium Chloride Carbon Dioxide BUN Creatinine Glucose POC Glucose 161 H 126 H 139 H Lactic Acid Calcium Phosphorus Magnesium AST ALT Lactate Dehydrogenase Total Bilirubin Direct Bilirubin CK-MB (CK-2) C-Reactive Protein NT-Pro-B Natriuret Pep Total Protein Albumin Arterial Blood Glucose Urine WBC (Auto) Urine Creatinine 12/14/19 12/14/19 12/14/19 06:03 06:03 09:37 WBC RBC Hgb 9.6 L Hct 30.4 L MCHC RDW MCV MCH Lymph % (Auto) [place] % (Auto) [place] # Eos # Lymph # (Auto) [place] # (Auto) Eos # (Auto) Seg Neutrophils % Seg Neuts % (Manual) Baso # (Auto) Lymphocytes % (Manual) Monocytes % (Manual) Eosinophils % (Manual) Basophils % (Manual) Seg Neutrophils # Seg Neutrophils # Man Lymphocytes # (Manual) Monocytes # (Manual) Eosinophils # (Manual) Nucleated RBC % Basophils # (Manual) PT INR APTT Heparin Anti-Xa Level 0.24 L ABG pH POC ABG pO2 ABG pO2 ABG HCO3 ABG O2 Saturation ABG Base Excess POC ABG pCO2 ABG Hemoglobin ABG Oxyhemoglobin ABG Chloride ABG Glucose Oxyhemoglobin Sodium Potassium Chloride Carbon Dioxide BUN Creatinine 0.6 L Glucose 162 H POC Glucose Lactic Acid Calcium Phosphorus Magnesium AST 71 H ALT 118 H Lactate Dehydrogenase Total Bilirubin Direct Bilirubin CK-MB (CK-2) C-Reactive Protein NT-Pro-B Natriuret Pep Total Protein 6.2 L Albumin 2.3 L Arterial Blood Glucose Urine WBC (Auto) Urine Creatinine 12/14/19 12/14/19 12/15/19 12:06 18:18 00:19 WBC RBC Hgb Hct MCHC RDW MCV MCH Lymph % (Auto) [place] % (Auto) [place] # Eos # Lymph # (Auto) [place] # (Auto) Eos # (Auto) Seg Neutrophils % Seg Neuts % (Manual) Baso # (Auto) Lymphocytes % (Manual) Monocytes % (Manual) Eosinophils % (Manual) Basophils % (Manual) Seg Neutrophils # Seg Neutrophils # Man Lymphocytes # (Manual) Monocytes # (Manual) Eosinophils # (Manual) Nucleated RBC % Basophils # (Manual) PT INR APTT Heparin Anti-Xa Level ABG pH POC ABG pO2 ABG pO2 ABG HCO3 ABG O2 Saturation ABG Base Excess POC ABG pCO2 ABG Hemoglobin ABG Oxyhemoglobin ABG Chloride ABG Glucose Oxyhemoglobin Sodium Potassium Chloride Carbon Dioxide BUN Creatinine Glucose POC Glucose 147 H 166 H 123 H Lactic Acid Calcium Phosphorus Magnesium AST ALT Lactate Dehydrogenase Total Bilirubin Direct Bilirubin CK-MB (CK-2) C-Reactive Protein NT-Pro-B Natriuret Pep Total Protein Albumin Arterial Blood Glucose Urine WBC (Auto) Urine Creatinine 12/15/19 12/15/19 12/15/19 05:28 05:29 05:29 WBC 14.9 H RBC 3.19 L Hgb 9.1 L Hct 28.7 L MCHC RDW 16.0 H MCV MCH Lymph % (Auto) [place] % (Auto) [place] # Eos # Lymph # (Auto) [place] # (Auto) Eos # (Auto) Seg Neutrophils % Seg Neuts % (Manual) Baso # (Auto) Lymphocytes % (Manual) Monocytes % (Manual) Eosinophils % (Manual) Basophils % (Manual) Seg Neutrophils # Seg Neutrophils # Man Lymphocytes # (Manual) Monocytes # (Manual) Eosinophils # (Manual) Nucleated RBC % Basophils # (Manual) PT INR APTT Heparin Anti-Xa Level 0.19 L ABG pH POC ABG pO2 ABG pO2 ABG HCO3 ABG O2 Saturation ABG Base Excess POC ABG pCO2 ABG Hemoglobin ABG Oxyhemoglobin ABG Chloride ABG Glucose Oxyhemoglobin Sodium Potassium Chloride Carbon Dioxide BUN Creatinine 0.6 L Glucose 110 H POC Glucose Lactic Acid Calcium Phosphorus Magnesium AST ALT Lactate Dehydrogenase Total Bilirubin Direct Bilirubin CK-MB (CK-2) C-Reactive Protein NT-Pro-B Natriuret Pep Total Protein Albumin Arterial Blood Glucose Urine WBC (Auto) Urine Creatinine 12/15/19 12/15/19 12/15/19 05:53 11:50 17:26 WBC RBC Hgb Hct MCHC RDW MCV MCH Lymph % (Auto) [place] % (Auto) [place] # Eos # Lymph # (Auto) [place] # (Auto) Eos # (Auto) Seg Neutrophils % Seg Neuts % (Manual) Baso # (Auto) Lymphocytes % (Manual) Monocytes % (Manual) Eosinophils % (Manual) Basophils % (Manual) Seg Neutrophils # Seg Neutrophils # Man Lymphocytes # (Manual) Monocytes # (Manual) Eosinophils # (Manual) Nucleated RBC % Basophils # (Manual) PT INR APTT Heparin Anti-Xa Level ABG pH POC ABG pO2 ABG pO2 ABG HCO3 ABG O2 Saturation ABG Base Excess POC ABG pCO2 ABG Hemoglobin ABG Oxyhemoglobin ABG Chloride ABG Glucose Oxyhemoglobin Sodium Potassium Chloride Carbon Dioxide BUN Creatinine Glucose POC Glucose 119 H 132 H 128 H Lactic Acid Calcium Phosphorus Magnesium AST ALT Lactate Dehydrogenase Total Bilirubin Direct Bilirubin CK-MB (CK-2) C-Reactive Protein NT-Pro-B Natriuret Pep Total Protein Albumin Arterial Blood Glucose Urine WBC (Auto) Urine Creatinine 12/15/19 12/16/19 12/16/19 23:11 05:30 05:46 WBC RBC Hgb 8.8 L Hct 27.9 L MCHC RDW MCV MCH Lymph % (Auto) [place] % (Auto) [place] # Eos # Lymph # (Auto) [place] # (Auto) Eos # (Auto) Seg Neutrophils % Seg Neuts % (Manual) Baso # (Auto) Lymphocytes % (Manual) Monocytes % (Manual) Eosinophils % (Manual) Basophils % (Manual) Seg Neutrophils # Seg Neutrophils # Man Lymphocytes # (Manual) Monocytes # (Manual) Eosinophils # (Manual) Nucleated RBC % Basophils # (Manual) PT INR APTT Heparin Anti-Xa Level ABG pH POC ABG pO2 ABG pO2 ABG HCO3 ABG O2 Saturation ABG Base Excess POC ABG pCO2 ABG Hemoglobin ABG Oxyhemoglobin ABG Chloride ABG Glucose Oxyhemoglobin Sodium Potassium Chloride Carbon Dioxide BUN Creatinine Glucose POC Glucose 150 H 134 H Lactic Acid Calcium Phosphorus Magnesium AST ALT Lactate Dehydrogenase Total Bilirubin Direct Bilirubin CK-MB (CK-2) C-Reactive Protein NT-Pro-B Natriuret Pep Total Protein Albumin Arterial Blood Glucose Urine WBC (Auto) Urine Creatinine 12/16/19 12/16/19 12/16/19 05:46 05:46 11:44 WBC RBC Hgb Hct MCHC RDW MCV MCH Lymph % (Auto) [place] % (Auto) [place] # Eos # Lymph # (Auto) [place] # (Auto) Eos # (Auto) Seg Neutrophils % Seg Neuts % (Manual) Baso # (Auto) Lymphocytes % (Manual) Monocytes % (Manual) Eosinophils % (Manual) Basophils % (Manual) Seg Neutrophils # Seg Neutrophils # Man Lymphocytes # (Manual) Monocytes # (Manual) Eosinophils # (Manual) Nucleated RBC % Basophils # (Manual) PT INR APTT Heparin Anti-Xa Level 0.20 L ABG pH POC ABG pO2 ABG pO2 ABG HCO3 ABG O2 Saturation ABG Base Excess POC ABG pCO2 ABG Hemoglobin ABG Oxyhemoglobin ABG Chloride ABG Glucose Oxyhemoglobin Sodium Potassium Chloride Carbon Dioxide 31 H BUN Creatinine 0.5 L Glucose 147 H POC Glucose 164 H Lactic Acid Calcium Phosphorus Magnesium AST ALT Lactate Dehydrogenase Total Bilirubin Direct Bilirubin CK-MB (CK-2) C-Reactive Protein NT-Pro-B Natriuret Pep Total Protein Albumin Arterial Blood Glucose Urine WBC (Auto) Urine Creatinine 12/16/19 12/16/19 12/17/19 17:17 23:49 05:30 WBC 13.9 H RBC 3.27 L Hgb 9.4 L Hct 29.2 L MCHC RDW 16.0 H MCV MCH Lymph % (Auto) [place] % (Auto) 8.8 H [place] # Eos # Lymph # (Auto) [place] # (Auto) 1.2 H Eos # (Auto) 0.5 H Seg Neutrophils % 70.5 H Seg Neuts % (Manual) Baso # (Auto) 0.2 H Lymphocytes % (Manual) Monocytes % (Manual) Eosinophils % (Manual) Basophils % (Manual) Seg Neutrophils # 9.8 H Seg Neutrophils # Man Lymphocytes # (Manual) Monocytes # (Manual) Eosinophils # (Manual) Nucleated RBC % Basophils # (Manual) PT INR APTT Heparin Anti-Xa Level ABG pH POC ABG pO2 ABG pO2 ABG HCO3 ABG O2 Saturation ABG Base Excess POC ABG pCO2 ABG Hemoglobin ABG Oxyhemoglobin ABG Chloride ABG Glucose Oxyhemoglobin Sodium Potassium Chloride Carbon Dioxide BUN Creatinine Glucose POC Glucose 162 H 144 H Lactic Acid Calcium Phosphorus Magnesium AST ALT Lactate Dehydrogenase Total Bilirubin Direct Bilirubin CK-MB (CK-2) C-Reactive Protein NT-Pro-B Natriuret Pep Total Protein Albumin Arterial Blood Glucose Urine WBC (Auto) Urine Creatinine 12/17/19 12/17/19 12/17/19 05:30 06:06 11:50 WBC RBC Hgb Hct MCHC RDW MCV MCH Lymph % (Auto) [place] % (Auto) [place] # Eos # Lymph # (Auto) [place] # (Auto) Eos # (Auto) Seg Neutrophils % Seg Neuts % (Manual) Baso # (Auto) Lymphocytes % (Manual) Monocytes % (Manual) Eosinophils % (Manual) Basophils % (Manual) Seg Neutrophils # Seg Neutrophils # Man Lymphocytes # (Manual) Monocytes # (Manual) Eosinophils # (Manual) Nucleated RBC % Basophils # (Manual) PT INR APTT Heparin Anti-Xa Level ABG pH POC ABG pO2 ABG pO2 ABG HCO3 ABG O2 Saturation ABG Base Excess POC ABG pCO2 ABG Hemoglobin ABG Oxyhemoglobin ABG Chloride ABG Glucose Oxyhemoglobin Sodium Potassium Chloride 97.4 L Carbon Dioxide 32 H BUN Creatinine 0.5 L Glucose 135 H POC Glucose 151 H 140 H Lactic Acid Calcium Phosphorus Magnesium AST ALT Lactate Dehydrogenase Total Bilirubin Direct Bilirubin CK-MB (CK-2) C-Reactive Protein NT-Pro-B Natriuret Pep Total Protein Albumin Arterial Blood Glucose Urine WBC (Auto) Urine Creatinine 12/17/19 12/17/19 12/18/19 17:50 23:46 05:17 WBC RBC Hgb 8.8 L Hct 28.0 L MCHC RDW MCV MCH Lymph % (Auto) [place] % (Auto) [place] # Eos # Lymph # (Auto) [place] # (Auto) Eos # (Auto) Seg Neutrophils % Seg Neuts % (Manual) Baso # (Auto) Lymphocytes % (Manual) Monocytes % (Manual) Eosinophils % (Manual) Basophils % (Manual) Seg Neutrophils # Seg Neutrophils # Man Lymphocytes # (Manual) Monocytes # (Manual) Eosinophils # (Manual) Nucleated RBC % Basophils # (Manual) PT INR APTT Heparin Anti-Xa Level ABG pH POC ABG pO2 ABG pO2 ABG HCO3 ABG O2 Saturation ABG Base Excess POC ABG pCO2 ABG Hemoglobin ABG Oxyhemoglobin ABG Chloride ABG Glucose Oxyhemoglobin Sodium Potassium Chloride Carbon Dioxide BUN Creatinine Glucose POC Glucose 158 H 150 H Lactic Acid Calcium Phosphorus Magnesium AST ALT Lactate Dehydrogenase Total Bilirubin Direct Bilirubin CK-MB (CK-2) C-Reactive Protein NT-Pro-B Natriuret Pep Total Protein Albumin Arterial Blood Glucose Urine WBC (Auto) Urine Creatinine 12/18/19 12/18/19 12/18/19 05:17 05:49 11:12 WBC RBC Hgb Hct MCHC RDW MCV MCH Lymph % (Auto) [place] % (Auto) [place] # Eos # Lymph # (Auto) [place] # (Auto) Eos # (Auto) Seg Neutrophils % Seg Neuts % (Manual) Baso # (Auto) Lymphocytes % (Manual) Monocytes % (Manual) Eosinophils % (Manual) Basophils % (Manual) Seg Neutrophils # Seg Neutrophils # Man Lymphocytes # (Manual) Monocytes # (Manual) Eosinophils # (Manual) Nucleated RBC % Basophils # (Manual) PT INR APTT Heparin Anti-Xa Level 0.16 L ABG pH POC ABG pO2 ABG pO2 ABG HCO3 ABG O2 Saturation ABG Base Excess POC ABG pCO2 ABG Hemoglobin ABG Oxyhemoglobin ABG Chloride ABG Glucose Oxyhemoglobin Sodium Potassium Chloride Carbon Dioxide BUN Creatinine Glucose POC Glucose 127 H 191 H Lactic Acid Calcium Phosphorus Magnesium AST ALT Lactate Dehydrogenase Total Bilirubin Direct Bilirubin CK-MB (CK-2) C-Reactive Protein NT-Pro-B Natriuret Pep Total Protein Albumin Arterial Blood Glucose Urine WBC (Auto) Urine Creatinine 12/18/19 12/18/19 12/19/19 17:03 20:16 00:08 WBC RBC Hgb Hct MCHC RDW MCV MCH Lymph % (Auto) [place] % (Auto) [place] # Eos # Lymph # (Auto) [place] # (Auto) Eos # (Auto) Seg Neutrophils % Seg Neuts % (Manual) Baso # (Auto) Lymphocytes % (Manual) Monocytes % (Manual) Eosinophils % (Manual) Basophils % (Manual) Seg Neutrophils # Seg Neutrophils # Man Lymphocytes # (Manual) Monocytes # (Manual) Eosinophils # (Manual) Nucleated RBC % Basophils # (Manual) PT INR APTT Heparin Anti-Xa Level ABG pH POC ABG pO2 ABG pO2 ABG HCO3 ABG O2 Saturation ABG Base Excess POC ABG pCO2 ABG Hemoglobin ABG Oxyhemoglobin ABG Chloride ABG Glucose Oxyhemoglobin Sodium Potassium Chloride Carbon Dioxide BUN Creatinine Glucose POC Glucose 133 H 128 H 129 H Lactic Acid Calcium Phosphorus Magnesium AST ALT Lactate Dehydrogenase Total Bilirubin Direct Bilirubin CK-MB (CK-2) C-Reactive Protein NT-Pro-B Natriuret Pep Total Protein Albumin Arterial Blood Glucose Urine WBC (Auto) Urine Creatinine 12/19/19 12/19/19 12/19/19 04:45 04:45 05:35 WBC RBC Hgb Hct MCHC RDW MCV MCH Lymph % (Auto) [place] % (Auto) [place] # Eos # Lymph # (Auto) [place] # (Auto) Eos # (Auto) Seg Neutrophils % Seg Neuts % (Manual) Baso # (Auto) Lymphocytes % (Manual) Monocytes % (Manual) Eosinophils % (Manual) Basophils % (Manual) Seg Neutrophils # Seg Neutrophils # Man Lymphocytes # (Manual) Monocytes # (Manual) Eosinophils # (Manual) Nucleated RBC % Basophils # (Manual) PT INR APTT Heparin Anti-Xa Level 0.17 L ABG pH POC ABG pO2 ABG pO2 ABG HCO3 ABG O2 Saturation ABG Base Excess POC ABG pCO2 ABG Hemoglobin ABG Oxyhemoglobin ABG Chloride ABG Glucose Oxyhemoglobin Sodium Potassium Chloride Carbon Dioxide BUN Creatinine Glucose POC Glucose 120 H Lactic Acid Calcium Phosphorus Magnesium AST ALT Lactate Dehydrogenase 228 H Total Bilirubin Direct Bilirubin CK-MB (CK-2) C-Reactive Protein NT-Pro-B Natriuret Pep Total Protein Albumin Arterial Blood Glucose Urine WBC (Auto) Urine Creatinine 12/19/19 12/19/19 12/19/19 09:20 11:32 11:32 WBC 14.6 H RBC 3.08 L Hgb 9.0 L Hct 26.8 L MCHC RDW 15.9 H MCV MCH Lymph % (Auto) [place] % (Auto) [place] # Eos # Lymph # (Auto) [place] # (Auto) Eos # (Auto) Seg Neutrophils % Seg Neuts % (Manual) 82.0 H Baso # (Auto) Lymphocytes % (Manual) 10.0 L Monocytes % (Manual) Eosinophils % (Manual) Basophils % (Manual) Seg Neutrophils # Seg Neutrophils # Man 12.0 H Lymphocytes # (Manual) Monocytes # (Manual) 0.9 H Eosinophils # (Manual) Nucleated RBC % 1.0 H Basophils # (Manual) PT INR APTT Heparin Anti-Xa Level ABG pH 7.451 H POC ABG pO2 ABG pO2 62.6 L ABG HCO3 33.2 H ABG O2 Saturation 93.8 L ABG Base Excess 8.3 H POC ABG pCO2 ABG Hemoglobin 8.3 L ABG Oxyhemoglobin ABG Chloride ABG Glucose Oxyhemoglobin 91.9 L Sodium Potassium Chloride 95.0 L Carbon Dioxide 33 H BUN 22 H Creatinine 0.6 L Glucose 150 H POC Glucose Lactic Acid Calcium Phosphorus Magnesium AST ALT Lactate Dehydrogenase Total Bilirubin Direct Bilirubin CK-MB (CK-2) C-Reactive Protein NT-Pro-B Natriuret Pep Total Protein 6.2 L Albumin 2.4 L Arterial Blood Glucose Urine WBC (Auto) Urine Creatinine 12/19/19 12/19/19 12/20/19 11:56 18:17 00:09 WBC RBC Hgb Hct MCHC RDW MCV MCH Lymph % (Auto) [place] % (Auto) [place] # Eos # Lymph # (Auto) [place] # (Auto) Eos # (Auto) Seg Neutrophils % Seg Neuts % (Manual) Baso # (Auto) Lymphocytes % (Manual) Monocytes % (Manual) Eosinophils % (Manual) Basophils % (Manual) Seg Neutrophils # Seg Neutrophils # Man Lymphocytes # (Manual) Monocytes # (Manual) Eosinophils # (Manual) Nucleated RBC % Basophils # (Manual) PT INR APTT Heparin Anti-Xa Level ABG pH POC ABG pO2 ABG pO2 ABG HCO3 ABG O2 Saturation ABG Base Excess POC ABG pCO2 ABG Hemoglobin ABG Oxyhemoglobin ABG Chloride ABG Glucose Oxyhemoglobin Sodium Potassium Chloride Carbon Dioxide BUN Creatinine Glucose POC Glucose 156 H 156 H 155 H Lactic Acid Calcium Phosphorus Magnesium AST ALT Lactate Dehydrogenase Total Bilirubin Direct Bilirubin CK-MB (CK-2) C-Reactive Protein NT-Pro-B Natriuret Pep Total Protein Albumin Arterial Blood Glucose Urine WBC (Auto) Urine Creatinine 12/20/19 12/20/19 12/20/19 05:26 06:02 18:17 WBC RBC Hgb Hct MCHC RDW MCV MCH Lymph % (Auto) [place] % (Auto) [place] # Eos # Lymph # (Auto) [place] # (Auto) Eos # (Auto) Seg Neutrophils % Seg Neuts % (Manual) Baso # (Auto) Lymphocytes % (Manual) Monocytes % (Manual) Eosinophils % (Manual) Basophils % (Manual) Seg Neutrophils # Seg Neutrophils # Man Lymphocytes # (Manual) Monocytes # (Manual) Eosinophils # (Manual) Nucleated RBC % Basophils # (Manual) PT INR APTT Heparin Anti-Xa Level 0.19 L ABG pH POC ABG pO2 ABG pO2 ABG HCO3 ABG O2 Saturation ABG Base Excess POC ABG pCO2 ABG Hemoglobin ABG Oxyhemoglobin ABG Chloride ABG Glucose Oxyhemoglobin Sodium Potassium Chloride Carbon Dioxide BUN Creatinine Glucose POC Glucose 137 H 128 H Lactic Acid Calcium Phosphorus Magnesium AST ALT Lactate Dehydrogenase Total Bilirubin Direct Bilirubin CK-MB (CK-2) C-Reactive Protein NT-Pro-B Natriuret Pep Total Protein Albumin Arterial Blood Glucose Urine WBC (Auto) Urine Creatinine 12/20/19 12/21/19 12/21/19 23:34 05:31 05:31 WBC 12.7 H RBC 3.09 L Hgb 8.9 L Hct 27.4 L MCHC RDW 15.8 H MCV MCH Lymph % (Auto) 12.1 L [place] % (Auto) 7.8 H [place] # Eos # Lymph # (Auto) [place] # (Auto) 1.0 H Eos # (Auto) Seg Neutrophils % 77.1 H Seg Neuts % (Manual) Baso # (Auto) Lymphocytes % (Manual) Monocytes % (Manual) Eosinophils % (Manual) Basophils % (Manual) Seg Neutrophils # 9.8 H Seg Neutrophils # Man Lymphocytes # (Manual) Monocytes # (Manual) Eosinophils # (Manual) Nucleated RBC % Basophils # (Manual) PT INR APTT Heparin Anti-Xa Level ABG pH POC ABG pO2 ABG pO2 ABG HCO3 ABG O2 Saturation ABG Base Excess POC ABG pCO2 ABG Hemoglobin ABG Oxyhemoglobin ABG Chloride ABG Glucose Oxyhemoglobin Sodium Potassium Chloride 96.9 L Carbon Dioxide 37 H BUN 27 H Creatinine 0.7 L Glucose 140 H POC Glucose 145 H Lactic Acid Calcium Phosphorus Magnesium AST ALT Lactate Dehydrogenase Total Bilirubin Direct Bilirubin CK-MB (CK-2) C-Reactive Protein NT-Pro-B Natriuret Pep Total Protein Albumin Arterial Blood Glucose Urine WBC (Auto) Urine Creatinine 12/21/19 12/21/19 12/21/19 05:38 10:13 11:51 WBC RBC Hgb Hct MCHC RDW MCV MCH Lymph % (Auto) [place] % (Auto) [place] # Eos # Lymph # (Auto) [place] # (Auto) Eos # (Auto) Seg Neutrophils % Seg Neuts % (Manual) Baso # (Auto) Lymphocytes % (Manual) Monocytes % (Manual) Eosinophils % (Manual) Basophils % (Manual) Seg Neutrophils # Seg Neutrophils # Man Lymphocytes # (Manual) Monocytes # (Manual) Eosinophils # (Manual) Nucleated RBC % Basophils # (Manual) PT INR APTT 23.9 L Heparin Anti-Xa Level < 0.10 L ABG pH POC ABG pO2 ABG pO2 ABG HCO3 ABG O2 Saturation ABG Base Excess POC ABG pCO2 ABG Hemoglobin ABG Oxyhemoglobin ABG Chloride ABG Glucose Oxyhemoglobin Sodium Potassium Chloride Carbon Dioxide BUN Creatinine Glucose POC Glucose 151 H 145 H Lactic Acid Calcium Phosphorus Magnesium AST ALT Lactate Dehydrogenase Total Bilirubin Direct Bilirubin CK-MB (CK-2) C-Reactive Protein NT-Pro-B Natriuret Pep Total Protein Albumin Arterial Blood Glucose Urine WBC (Auto) Urine Creatinine 12/21/19 12/22/19 12/22/19 17:16 00:01 01:33 WBC RBC Hgb Hct MCHC RDW MCV MCH Lymph % (Auto) [place] % (Auto) [place] # Eos # Lymph # (Auto) [place] # (Auto) Eos # (Auto) Seg Neutrophils % Seg Neuts % (Manual) Baso # (Auto) Lymphocytes % (Manual) Monocytes % (Manual) Eosinophils % (Manual) Basophils % (Manual) Seg Neutrophils # Seg Neutrophils # Man Lymphocytes # (Manual) Monocytes # (Manual) Eosinophils # (Manual) Nucleated RBC % Basophils # (Manual) PT INR APTT Heparin Anti-Xa Level 0.10 L ABG pH POC ABG pO2 ABG pO2 ABG HCO3 ABG O2 Saturation ABG Base Excess POC ABG pCO2 ABG Hemoglobin ABG Oxyhemoglobin ABG Chloride ABG Glucose Oxyhemoglobin Sodium Potassium Chloride Carbon Dioxide BUN Creatinine Glucose POC Glucose 167 H 179 H Lactic Acid Calcium Phosphorus Magnesium AST ALT Lactate Dehydrogenase Total Bilirubin Direct Bilirubin CK-MB (CK-2) C-Reactive Protein NT-Pro-B Natriuret Pep Total Protein Albumin Arterial Blood Glucose Urine WBC (Auto) Urine Creatinine 12/22/19 12/22/19 12/22/19 03:22 05:10 05:10 WBC 13.8 H RBC 3.20 L Hgb 8.9 L Hct 28.1 L MCHC RDW 15.9 H MCV MCH Lymph % (Auto) [place] % (Auto) [place] # Eos # Lymph # (Auto) [place] # (Auto) Eos # (Auto) Seg Neutrophils % Seg Neuts % (Manual) Baso # (Auto) Lymphocytes % (Manual) Monocytes % (Manual) Eosinophils % (Manual) Basophils % (Manual) Seg Neutrophils # Seg Neutrophils # Man Lymphocytes # (Manual) Monocytes # (Manual) Eosinophils # (Manual) Nucleated RBC % Basophils # (Manual) PT INR APTT Heparin Anti-Xa Level ABG pH POC ABG pO2 52.3 L ABG pO2 ABG HCO3 ABG O2 Saturation ABG Base Excess POC ABG pCO2 52.9 H ABG Hemoglobin 10.7 L ABG Oxyhemoglobin 84 L ABG Chloride ABG Glucose Oxyhemoglobin Sodium Potassium Chloride 96.6 L Carbon Dioxide BUN 25 H Creatinine 0.7 L Glucose 129 H POC Glucose Lactic Acid Calcium Phosphorus Magnesium AST ALT Lactate Dehydrogenase Total Bilirubin Direct Bilirubin CK-MB (CK-2) C-Reactive Protein NT-Pro-B Natriuret Pep Total Protein Albumin Arterial Blood Glucose Urine WBC (Auto) Urine Creatinine 12/22/19 12/22/19 12/22/19 05:18 12:32 12:43 WBC RBC Hgb Hct MCHC RDW MCV MCH Lymph % (Auto) [place] % (Auto) [place] # Eos # Lymph # (Auto) [place] # (Auto) Eos # (Auto) Seg Neutrophils % Seg Neuts % (Manual) Baso # (Auto) Lymphocytes % (Manual) Monocytes % (Manual) Eosinophils % (Manual) Basophils % (Manual) Seg Neutrophils # Seg Neutrophils # Man Lymphocytes # (Manual) Monocytes # (Manual) Eosinophils # (Manual) Nucleated RBC % Basophils # (Manual) PT INR APTT Heparin Anti-Xa Level 0.18 L ABG pH POC ABG pO2 ABG pO2 ABG HCO3 ABG O2 Saturation ABG Base Excess POC ABG pCO2 ABG Hemoglobin ABG Oxyhemoglobin ABG Chloride ABG Glucose Oxyhemoglobin Sodium Potassium Chloride Carbon Dioxide BUN Creatinine Glucose POC Glucose 131 H 208 H Lactic Acid Calcium Phosphorus Magnesium AST ALT Lactate Dehydrogenase Total Bilirubin Direct Bilirubin CK-MB (CK-2) C-Reactive Protein NT-Pro-B Natriuret Pep Total Protein Albumin Arterial Blood Glucose Urine WBC (Auto) Urine Creatinine 12/22/19 12/22/19 12/23/19 17:44 23:20 03:51 WBC 15.2 H RBC 3.43 L Hgb 9.6 L Hct 30.3 L MCHC RDW 15.9 H MCV MCH Lymph % (Auto) [place] % (Auto) [place] # Eos # Lymph # (Auto) [place] # (Auto) Eos # (Auto) Seg Neutrophils % Seg Neuts % (Manual) Baso # (Auto) Lymphocytes % (Manual) Monocytes % (Manual) Eosinophils % (Manual) Basophils % (Manual) Seg Neutrophils # Seg Neutrophils # Man Lymphocytes # (Manual) Monocytes # (Manual) Eosinophils # (Manual) Nucleated RBC % Basophils # (Manual) PT INR APTT Heparin Anti-Xa Level ABG pH POC ABG pO2 ABG pO2 ABG HCO3 ABG O2 Saturation ABG Base Excess POC ABG pCO2 ABG Hemoglobin ABG Oxyhemoglobin ABG Chloride ABG Glucose Oxyhemoglobin Sodium Potassium Chloride Carbon Dioxide BUN Creatinine Glucose POC Glucose 209 H 119 H Lactic Acid Calcium Phosphorus Magnesium AST ALT Lactate Dehydrogenase Total Bilirubin Direct Bilirubin CK-MB (CK-2) C-Reactive Protein NT-Pro-B Natriuret Pep Total Protein Albumin Arterial Blood Glucose Urine WBC (Auto) Urine Creatinine 12/23/19 12/23/19 12/23/19 03:51 05:31 12:09 WBC RBC Hgb Hct MCHC RDW MCV MCH Lymph % (Auto) [place] % (Auto) [place] # Eos # Lymph # (Auto) [place] # (Auto) Eos # (Auto) Seg Neutrophils % Seg Neuts % (Manual) Baso # (Auto) Lymphocytes % (Manual) Monocytes % (Manual) Eosinophils % (Manual) Basophils % (Manual) Seg Neutrophils # Seg Neutrophils # Man Lymphocytes # (Manual) Monocytes # (Manual) Eosinophils # (Manual) Nucleated RBC % Basophils # (Manual) PT INR APTT Heparin Anti-Xa Level ABG pH POC ABG pO2 ABG pO2 ABG HCO3 ABG O2 Saturation ABG Base Excess POC ABG pCO2 ABG Hemoglobin ABG Oxyhemoglobin ABG Chloride ABG Glucose Oxyhemoglobin Sodium Potassium Chloride 97.2 L Carbon Dioxide 31 H BUN 23 H Creatinine 0.6 L Glucose 153 H POC Glucose 149 H 144 H Lactic Acid Calcium Phosphorus Magnesium AST ALT Lactate Dehydrogenase Total Bilirubin Direct Bilirubin CK-MB (CK-2) C-Reactive Protein NT-Pro-B Natriuret Pep Total Protein Albumin Arterial Blood Glucose Urine WBC (Auto) Urine Creatinine 12/23/19 12/23/19 12/23/19 15:30 17:49 23:31 WBC RBC Hgb Hct MCHC RDW MCV MCH Lymph % (Auto) [place] % (Auto) [place] # Eos # Lymph # (Auto) [place] # (Auto) Eos # (Auto) Seg Neutrophils % Seg Neuts % (Manual) Baso # (Auto) Lymphocytes % (Manual) Monocytes % (Manual) Eosinophils % (Manual) Basophils % (Manual) Seg Neutrophils # Seg Neutrophils # Man Lymphocytes # (Manual) Monocytes # (Manual) Eosinophils # (Manual) Nucleated RBC % Basophils # (Manual) PT INR APTT Heparin Anti-Xa Level 0.21 L ABG pH POC ABG pO2 ABG pO2 ABG HCO3 ABG O2 Saturation ABG Base Excess POC ABG pCO2 ABG Hemoglobin ABG Oxyhemoglobin ABG Chloride ABG Glucose Oxyhemoglobin Sodium Potassium Chloride Carbon Dioxide BUN Creatinine Glucose POC Glucose 192 H 151 H Lactic Acid Calcium Phosphorus Magnesium AST ALT Lactate Dehydrogenase Total Bilirubin Direct Bilirubin CK-MB (CK-2) C-Reactive Protein NT-Pro-B Natriuret Pep Total Protein Albumin Arterial Blood Glucose Urine WBC (Auto) Urine Creatinine 12/24/19 12/24/19 12/24/19 05:34 12:13 16:50 WBC RBC Hgb Hct MCHC RDW MCV MCH Lymph % (Auto) [place] % (Auto) [place] # Eos # Lymph # (Auto) [place] # (Auto) Eos # (Auto) Seg Neutrophils % Seg Neuts % (Manual) Baso # (Auto) Lymphocytes % (Manual) Monocytes % (Manual) Eosinophils % (Manual) Basophils % (Manual) Seg Neutrophils # Seg Neutrophils # Man Lymphocytes # (Manual) Monocytes # (Manual) Eosinophils # (Manual) Nucleated RBC % Basophils # (Manual) PT INR APTT Heparin Anti-Xa Level 0.16 L ABG pH POC ABG pO2 ABG pO2 ABG HCO3 ABG O2 Saturation ABG Base Excess POC ABG pCO2 ABG Hemoglobin ABG Oxyhemoglobin ABG Chloride ABG Glucose Oxyhemoglobin Sodium Potassium Chloride Carbon Dioxide BUN Creatinine Glucose POC Glucose 145 H 124 H Lactic Acid Calcium Phosphorus Magnesium AST ALT Lactate Dehydrogenase Total Bilirubin Direct Bilirubin CK-MB (CK-2) C-Reactive Protein NT-Pro-B Natriuret Pep Total Protein Albumin Arterial Blood Glucose Urine WBC (Auto) Urine Creatinine 12/24/19 12/25/19 12/25/19 17:53 00:14 04:18 WBC 12.9 H RBC 3.30 L Hgb 9.1 L Hct 28.8 L MCHC RDW 16.4 H MCV MCH Lymph % (Auto) [place] % (Auto) 7.8 H [place] # Eos # Lymph # (Auto) [place] # (Auto) 1.0 H Eos # (Auto) Seg Neutrophils % 75.5 H Seg Neuts % (Manual) Baso # (Auto) Lymphocytes % (Manual) Monocytes % (Manual) Eosinophils % (Manual) Basophils % (Manual) Seg Neutrophils # 9.7 H Seg Neutrophils # Man Lymphocytes # (Manual) Monocytes # (Manual) Eosinophils # (Manual) Nucleated RBC % Basophils # (Manual) PT INR APTT Heparin Anti-Xa Level ABG pH POC ABG pO2 ABG pO2 ABG HCO3 ABG O2 Saturation ABG Base Excess POC ABG pCO2 ABG Hemoglobin ABG Oxyhemoglobin ABG Chloride ABG Glucose Oxyhemoglobin Sodium Potassium Chloride Carbon Dioxide BUN Creatinine Glucose POC Glucose 164 H 148 H Lactic Acid Calcium Phosphorus Magnesium AST ALT Lactate Dehydrogenase Total Bilirubin Direct Bilirubin CK-MB (CK-2) C-Reactive Protein NT-Pro-B Natriuret Pep Total Protein Albumin Arterial Blood Glucose Urine WBC (Auto) Urine Creatinine 12/25/19 12/25/19 12/25/19 04:18 05:38 11:44 WBC RBC Hgb Hct MCHC RDW MCV MCH Lymph % (Auto) [place] % (Auto) [place] # Eos # Lymph # (Auto) [place] # (Auto) Eos # (Auto) Seg Neutrophils % Seg Neuts % (Manual) Baso # (Auto) Lymphocytes % (Manual) Monocytes % (Manual) Eosinophils % (Manual) Basophils % (Manual) Seg Neutrophils # Seg Neutrophils # Man Lymphocytes # (Manual) Monocytes # (Manual) Eosinophils # (Manual) Nucleated RBC % Basophils # (Manual) PT INR APTT Heparin Anti-Xa Level ABG pH POC ABG pO2 ABG pO2 ABG HCO3 ABG O2 Saturation ABG Base Excess POC ABG pCO2 ABG Hemoglobin ABG Oxyhemoglobin ABG Chloride ABG Glucose Oxyhemoglobin Sodium Potassium Chloride Carbon Dioxide 33 H BUN 27 H Creatinine 0.6 L Glucose 132 H POC Glucose 152 H 166 H Lactic Acid Calcium Phosphorus Magnesium AST ALT Lactate Dehydrogenase Total Bilirubin Direct Bilirubin CK-MB (CK-2) C-Reactive Protein NT-Pro-B Natriuret Pep Total Protein Albumin Arterial Blood Glucose Urine WBC (Auto) Urine Creatinine 12/25/19 12/26/19 12/26/19 18:29 00:17 00:18 WBC RBC Hgb Hct MCHC RDW MCV MCH Lymph % (Auto) [place] % (Auto) [place] # Eos # Lymph # (Auto) [place] # (Auto) Eos # (Auto) Seg Neutrophils % Seg Neuts % (Manual) Baso # (Auto) Lymphocytes % (Manual) Monocytes % (Manual) Eosinophils % (Manual) Basophils % (Manual) Seg Neutrophils # Seg Neutrophils # Man Lymphocytes # (Manual) Monocytes # (Manual) Eosinophils # (Manual) Nucleated RBC % Basophils # (Manual) PT INR APTT Heparin Anti-Xa Level ABG pH POC ABG pO2 ABG pO2 ABG HCO3 ABG O2 Saturation ABG Base Excess POC ABG pCO2 ABG Hemoglobin ABG Oxyhemoglobin ABG Chloride ABG Glucose Oxyhemoglobin Sodium Potassium Chloride 97.8 L Carbon Dioxide BUN 25 H Creatinine 0.6 L Glucose 140 H POC Glucose 194 H 151 H Lactic Acid Calcium Phosphorus Magnesium AST ALT Lactate Dehydrogenase Total Bilirubin Direct Bilirubin CK-MB (CK-2) C-Reactive Protein NT-Pro-B Natriuret Pep Total Protein Albumin Arterial Blood Glucose Urine WBC (Auto) Urine Creatinine 12/26/19 12/26/19 12/26/19 05:36 11:41 17:50 WBC RBC Hgb Hct MCHC RDW MCV MCH Lymph % (Auto) [place] % (Auto) [place] # Eos # Lymph # (Auto) [place] # (Auto) Eos # (Auto) Seg Neutrophils % Seg Neuts % (Manual) Baso # (Auto) Lymphocytes % (Manual) Monocytes % (Manual) Eosinophils % (Manual) Basophils % (Manual) Seg Neutrophils # Seg Neutrophils # Man Lymphocytes # (Manual) Monocytes # (Manual) Eosinophils # (Manual) Nucleated RBC % Basophils # (Manual) PT INR APTT Heparin Anti-Xa Level ABG pH POC ABG pO2 ABG pO2 ABG HCO3 ABG O2 Saturation ABG Base Excess POC ABG pCO2 ABG Hemoglobin ABG Oxyhemoglobin ABG Chloride ABG Glucose Oxyhemoglobin Sodium Potassium Chloride Carbon Dioxide BUN Creatinine Glucose POC Glucose 156 H 148 H 139 H Lactic Acid Calcium Phosphorus Magnesium AST ALT Lactate Dehydrogenase Total Bilirubin Direct Bilirubin CK-MB (CK-2) C-Reactive Protein NT-Pro-B Natriuret Pep Total Protein Albumin Arterial Blood Glucose Urine WBC (Auto) Urine Creatinine 12/26/19 12/27/19 12/27/19 23:19 05:34 12:02 WBC RBC Hgb Hct MCHC RDW MCV MCH Lymph % (Auto) [place] % (Auto) [place] # Eos # Lymph # (Auto) [place] # (Auto) Eos # (Auto) Seg Neutrophils % Seg Neuts % (Manual) Baso # (Auto) Lymphocytes % (Manual) Monocytes % (Manual) Eosinophils % (Manual) Basophils % (Manual) Seg Neutrophils # Seg Neutrophils # Man Lymphocytes # (Manual) Monocytes # (Manual) Eosinophils # (Manual) Nucleated RBC % Basophils # (Manual) PT INR APTT Heparin Anti-Xa Level ABG pH POC ABG pO2 ABG pO2 ABG HCO3 ABG O2 Saturation ABG Base Excess POC ABG pCO2 ABG Hemoglobin ABG Oxyhemoglobin ABG Chloride ABG Glucose Oxyhemoglobin Sodium Potassium Chloride Carbon Dioxide BUN Creatinine Glucose POC Glucose 161 H 145 H 157 H Lactic Acid Calcium Phosphorus Magnesium AST ALT Lactate Dehydrogenase Total Bilirubin Direct Bilirubin CK-MB (CK-2) C-Reactive Protein NT-Pro-B Natriuret Pep Total Protein Albumin Arterial Blood Glucose Urine WBC (Auto) Urine Creatinine 12/27/19 12/27/19 12/27/19 17:35 20:11 23:00 WBC RBC Hgb Hct MCHC RDW MCV MCH Lymph % (Auto) [place] % (Auto) [place] # Eos # Lymph # (Auto) [place] # (Auto) Eos # (Auto) Seg Neutrophils % Seg Neuts % (Manual) Baso # (Auto) Lymphocytes % (Manual) Monocytes % (Manual) Eosinophils % (Manual) Basophils % (Manual) Seg Neutrophils # Seg Neutrophils # Man Lymphocytes # (Manual) Monocytes # (Manual) Eosinophils # (Manual) Nucleated RBC % Basophils # (Manual) PT INR APTT Heparin Anti-Xa Level 0.19 L ABG pH POC ABG pO2 ABG pO2 ABG HCO3 ABG O2 Saturation ABG Base Excess POC ABG pCO2 ABG Hemoglobin ABG Oxyhemoglobin ABG Chloride ABG Glucose Oxyhemoglobin Sodium Potassium Chloride Carbon Dioxide BUN Creatinine Glucose POC Glucose 158 H 155 H Lactic Acid Calcium Phosphorus Magnesium AST ALT Lactate Dehydrogenase Total Bilirubin Direct Bilirubin CK-MB (CK-2) C-Reactive Protein NT-Pro-B Natriuret Pep Total Protein Albumin Arterial Blood Glucose Urine WBC (Auto) Urine Creatinine 12/27/19 12/28/19 12/28/19 23:45 02:41 02:41 WBC 13.0 H RBC 3.48 L Hgb 9.5 L Hct 30.6 L MCHC 31 L RDW 16.6 H MCV MCH 27 L Lymph % (Auto) 13.0 L [place] % (Auto) 8.0 H [place] # Eos # Lymph # (Auto) [place] # (Auto) 1.0 H Eos # (Auto) Seg Neutrophils % 76.3 H Seg Neuts % (Manual) Baso # (Auto) Lymphocytes % (Manual) Monocytes % (Manual) Eosinophils % (Manual) Basophils % (Manual) Seg Neutrophils # 9.9 H Seg Neutrophils # Man Lymphocytes # (Manual) Monocytes # (Manual) Eosinophils # (Manual) Nucleated RBC % Basophils # (Manual) PT INR APTT Heparin Anti-Xa Level ABG pH POC ABG pO2 ABG pO2 ABG HCO3 ABG O2 Saturation ABG Base Excess POC ABG pCO2 ABG Hemoglobin ABG Oxyhemoglobin ABG Chloride ABG Glucose Oxyhemoglobin Sodium Potassium Chloride Carbon Dioxide BUN 22 H Creatinine 0.6 L Glucose 101 H POC Glucose 130 H Lactic Acid Calcium Phosphorus Magnesium AST ALT Lactate Dehydrogenase Total Bilirubin Direct Bilirubin CK-MB (CK-2) C-Reactive Protein NT-Pro-B Natriuret Pep Total Protein Albumin Arterial Blood Glucose Urine WBC (Auto) Urine Creatinine 12/28/19 12/28/19 12/28/19 06:00 12:34 18:13 WBC RBC Hgb Hct MCHC RDW MCV MCH Lymph % (Auto) [place] % (Auto) [place] # Eos # Lymph # (Auto) [place] # (Auto) Eos # (Auto) Seg Neutrophils % Seg Neuts % (Manual) Baso # (Auto) Lymphocytes % (Manual) Monocytes % (Manual) Eosinophils % (Manual) Basophils % (Manual) Seg Neutrophils # Seg Neutrophils # Man Lymphocytes # (Manual) Monocytes # (Manual) Eosinophils # (Manual) Nucleated RBC % Basophils # (Manual) PT INR APTT Heparin Anti-Xa Level ABG pH POC ABG pO2 ABG pO2 ABG HCO3 ABG O2 Saturation ABG Base Excess POC ABG pCO2 ABG Hemoglobin ABG Oxyhemoglobin ABG Chloride ABG Glucose Oxyhemoglobin Sodium Potassium Chloride Carbon Dioxide BUN Creatinine Glucose POC Glucose 150 H 161 H 128 H Lactic Acid Calcium Phosphorus Magnesium AST ALT Lactate Dehydrogenase Total Bilirubin Direct Bilirubin CK-MB (CK-2) C-Reactive Protein NT-Pro-B Natriuret Pep Total Protein Albumin Arterial Blood Glucose Urine WBC (Auto) Urine Creatinine 12/28/19 12/29/19 12/29/19 23:36 05:21 11:40 WBC RBC Hgb Hct MCHC RDW MCV MCH Lymph % (Auto) [place] % (Auto) [place] # Eos # Lymph # (Auto) [place] # (Auto) Eos # (Auto) Seg Neutrophils % Seg Neuts % (Manual) Baso # (Auto) Lymphocytes % (Manual) Monocytes % (Manual) Eosinophils % (Manual) Basophils % (Manual) Seg Neutrophils # Seg Neutrophils # Man Lymphocytes # (Manual) Monocytes # (Manual) Eosinophils # (Manual) Nucleated RBC % Basophils # (Manual) PT INR APTT Heparin Anti-Xa Level ABG pH POC ABG pO2 ABG pO2 ABG HCO3 ABG O2 Saturation ABG Base Excess POC ABG pCO2 ABG Hemoglobin ABG Oxyhemoglobin ABG Chloride ABG Glucose Oxyhemoglobin Sodium Potassium Chloride Carbon Dioxide BUN Creatinine Glucose POC Glucose 137 H 136 H 166 H Lactic Acid Calcium Phosphorus Magnesium AST ALT Lactate Dehydrogenase Total Bilirubin Direct Bilirubin CK-MB (CK-2) C-Reactive Protein NT-Pro-B Natriuret Pep Total Protein Albumin Arterial Blood Glucose Urine WBC (Auto) Urine Creatinine 12/29/19 12/29/19 12/29/19 17:23 19:21 23:38 WBC RBC Hgb Hct MCHC RDW MCV MCH Lymph % (Auto) [place] % (Auto) [place] # Eos # Lymph # (Auto) [place] # (Auto) Eos # (Auto) Seg Neutrophils % Seg Neuts % (Manual) Baso # (Auto) Lymphocytes % (Manual) Monocytes % (Manual) Eosinophils % (Manual) Basophils % (Manual) Seg Neutrophils # Seg Neutrophils # Man Lymphocytes # (Manual) Monocytes # (Manual) Eosinophils # (Manual) Nucleated RBC % Basophils # (Manual) PT INR APTT Heparin Anti-Xa Level 0.20 L ABG pH POC ABG pO2 ABG pO2 ABG HCO3 ABG O2 Saturation ABG Base Excess POC ABG pCO2 ABG Hemoglobin ABG Oxyhemoglobin ABG Chloride ABG Glucose Oxyhemoglobin Sodium Potassium Chloride Carbon Dioxide BUN Creatinine Glucose POC Glucose 144 H 141 H Lactic Acid Calcium Phosphorus Magnesium AST ALT Lactate Dehydrogenase Total Bilirubin Direct Bilirubin CK-MB (CK-2) C-Reactive Protein NT-Pro-B Natriuret Pep Total Protein Albumin Arterial Blood Glucose Urine WBC (Auto) Urine Creatinine 12/30/19 12/30/19 12/30/19 03:58 03:58 04:59 WBC RBC 3.54 L Hgb 9.8 L Hct 30.7 L MCHC RDW 16.8 H MCV MCH Lymph % (Auto) [place] % (Auto) [place] # Eos # Lymph # (Auto) [place] # (Auto) Eos # (Auto) Seg Neutrophils % Seg Neuts % (Manual) Baso # (Auto) Lymphocytes % (Manual) Monocytes % (Manual) Eosinophils % (Manual) Basophils % (Manual) Seg Neutrophils # Seg Neutrophils # Man Lymphocytes # (Manual) Monocytes # (Manual) Eosinophils # (Manual) Nucleated RBC % Basophils # (Manual) PT INR APTT Heparin Anti-Xa Level ABG pH POC ABG pO2 ABG pO2 ABG HCO3 29.8 H ABG O2 Saturation ABG Base Excess 4.8 H POC ABG pCO2 ABG Hemoglobin 11.2 L ABG Oxyhemoglobin ABG Chloride ABG Glucose Oxyhemoglobin 93.8 L Sodium Potassium Chloride 97.8 L Carbon Dioxide BUN 26 H Creatinine Glucose 168 H POC Glucose Lactic Acid Calcium Phosphorus Magnesium AST ALT Lactate Dehydrogenase Total Bilirubin Direct Bilirubin CK-MB (CK-2) C-Reactive Protein NT-Pro-B Natriuret Pep Total Protein Albumin Arterial Blood Glucose Urine WBC (Auto) Urine Creatinine 12/30/19 12/30/19 12/30/19 05:45 11:34 17:28 WBC RBC Hgb Hct MCHC RDW MCV MCH Lymph % (Auto) [place] % (Auto) [place] # Eos # Lymph # (Auto) [place] # (Auto) Eos # (Auto) Seg Neutrophils % Seg Neuts % (Manual) Baso # (Auto) Lymphocytes % (Manual) Monocytes % (Manual) Eosinophils % (Manual) Basophils % (Manual) Seg Neutrophils # Seg Neutrophils # Man Lymphocytes # (Manual) Monocytes # (Manual) Eosinophils # (Manual) Nucleated RBC % Basophils # (Manual) PT INR APTT Heparin Anti-Xa Level ABG pH POC ABG pO2 ABG pO2 ABG HCO3 ABG O2 Saturation ABG Base Excess POC ABG pCO2 ABG Hemoglobin ABG Oxyhemoglobin ABG Chloride ABG Glucose Oxyhemoglobin Sodium Potassium Chloride Carbon Dioxide BUN Creatinine Glucose POC Glucose 163 H 180 H 150 H Lactic Acid Calcium Phosphorus Magnesium AST ALT Lactate Dehydrogenase Total Bilirubin Direct Bilirubin CK-MB (CK-2) C-Reactive Protein NT-Pro-B Natriuret Pep Total Protein Albumin Arterial Blood Glucose Urine WBC (Auto) Urine Creatinine 12/30/19 12/31/19 12/31/19 23:43 04:55 05:07 WBC RBC Hgb Hct MCHC RDW MCV MCH Lymph % (Auto) [place] % (Auto) [place] # Eos # Lymph # (Auto) [place] # (Auto) Eos # (Auto) Seg Neutrophils % Seg Neuts % (Manual) Baso # (Auto) Lymphocytes % (Manual) Monocytes % (Manual) Eosinophils % (Manual) Basophils % (Manual) Seg Neutrophils # Seg Neutrophils # Man Lymphocytes # (Manual) Monocytes # (Manual) Eosinophils # (Manual) Nucleated RBC % Basophils # (Manual) PT INR APTT Heparin Anti-Xa Level ABG pH POC ABG pO2 ABG pO2 ABG HCO3 ABG O2 Saturation ABG Base Excess POC ABG pCO2 ABG Hemoglobin ABG Oxyhemoglobin ABG Chloride ABG Glucose Oxyhemoglobin Sodium Potassium 5.6 H D Chloride Carbon Dioxide BUN 33 H Creatinine Glucose 131 H POC Glucose 142 H 134 H Lactic Acid Calcium Phosphorus Magnesium AST ALT Lactate Dehydrogenase Total Bilirubin Direct Bilirubin CK-MB (CK-2) C-Reactive Protein NT-Pro-B Natriuret Pep Total Protein Albumin Arterial Blood Glucose Urine WBC (Auto) Urine Creatinine 12/31/19 12/31/19 12/31/19 11:30 17:19 17:36 WBC RBC Hgb Hct MCHC RDW MCV MCH Lymph % (Auto) [place] % (Auto) [place] # Eos # Lymph # (Auto) [place] # (Auto) Eos # (Auto) Seg Neutrophils % Seg Neuts % (Manual) Baso # (Auto) Lymphocytes % (Manual) Monocytes % (Manual) Eosinophils % (Manual) Basophils % (Manual) Seg Neutrophils # Seg Neutrophils # Man Lymphocytes # (Manual) Monocytes # (Manual) Eosinophils # (Manual) Nucleated RBC % Basophils # (Manual) PT INR APTT Heparin Anti-Xa Level ABG pH POC ABG pO2 ABG pO2 ABG HCO3 ABG O2 Saturation ABG Base Excess POC ABG pCO2 ABG Hemoglobin ABG Oxyhemoglobin ABG Chloride ABG Glucose Oxyhemoglobin Sodium Potassium Chloride Carbon Dioxide BUN 35 H Creatinine Glucose 156 H POC Glucose 158 H 181 H Lactic Acid Calcium Phosphorus Magnesium AST ALT Lactate Dehydrogenase Total Bilirubin Direct Bilirubin CK-MB (CK-2) C-Reactive Protein NT-Pro-B Natriuret Pep Total Protein Albumin Arterial Blood Glucose Urine WBC (Auto) Urine Creatinine 12/31/19 12/31/19 12/31/19 18:16 19:41 21:53 WBC RBC Hgb Hct MCHC RDW MCV MCH Lymph % (Auto) [place] % (Auto) [place] # Eos # Lymph # (Auto) [place] # (Auto) Eos # (Auto) Seg Neutrophils % Seg Neuts % (Manual) Baso # (Auto) Lymphocytes % (Manual) Monocytes % (Manual) Eosinophils % (Manual) Basophils % (Manual) Seg Neutrophils # Seg Neutrophils # Man Lymphocytes # (Manual) Monocytes # (Manual) Eosinophils # (Manual) Nucleated RBC % Basophils # (Manual) PT INR APTT Heparin Anti-Xa Level 0.20 L ABG pH POC ABG pO2 ABG pO2 ABG HCO3 ABG O2 Saturation ABG Base Excess POC ABG pCO2 ABG Hemoglobin ABG Oxyhemoglobin ABG Chloride ABG Glucose Oxyhemoglobin Sodium Potassium Chloride Carbon Dioxide BUN 34 H Creatinine Glucose 169 H POC Glucose 141 H Lactic Acid Calcium Phosphorus Magnesium AST ALT Lactate Dehydrogenase Total Bilirubin Direct Bilirubin CK-MB (CK-2) C-Reactive Protein NT-Pro-B Natriuret Pep Total Protein Albumin Arterial Blood Glucose Urine WBC (Auto) Urine Creatinine 12/31/19 01/01/20 01/01/20 23:51 05:17 10:40 WBC RBC Hgb Hct MCHC RDW MCV MCH Lymph % (Auto) [place] % (Auto) [place] # Eos # Lymph # (Auto) [place] # (Auto) Eos # (Auto) Seg Neutrophils % Seg Neuts % (Manual) Baso # (Auto) Lymphocytes % (Manual) Monocytes % (Manual) Eosinophils % (Manual) Basophils % (Manual) Seg Neutrophils # Seg Neutrophils # Man Lymphocytes # (Manual) Monocytes # (Manual) Eosinophils # (Manual) Nucleated RBC % Basophils # (Manual) PT INR APTT Heparin Anti-Xa Level ABG pH POC ABG pO2 ABG pO2 ABG HCO3 ABG O2 Saturation ABG Base Excess POC ABG pCO2 ABG Hemoglobin ABG Oxyhemoglobin ABG Chloride ABG Glucose Oxyhemoglobin Sodium Potassium Chloride Carbon Dioxide BUN 31 H Creatinine 0.7 L Glucose 137 H POC Glucose 131 H 155 H Lactic Acid Calcium Phosphorus Magnesium AST 73 H ALT 97 H Lactate Dehydrogenase Total Bilirubin Direct Bilirubin CK-MB (CK-2) C-Reactive Protein NT-Pro-B Natriuret Pep 3866 H Total Protein Albumin 2.8 L Arterial Blood Glucose Urine WBC (Auto) Urine Creatinine 01/01/20 01/01/20 01/01/20 12:26 15:33 17:53 WBC 14.3 H RBC 3.35 L Hgb 9.1 L Hct 28.8 L MCHC RDW 17.0 H MCV MCH 27 L Lymph % (Auto) 7.0 L [place] % (Auto) 7.6 H [place] # Eos # Lymph # (Auto) 1.0 L [place] # (Auto) 1.1 H Eos # (Auto) Seg Neutrophils % 83.3 H Seg Neuts % (Manual) Baso # (Auto) Lymphocytes % (Manual) Monocytes % (Manual) Eosinophils % (Manual) Basophils % (Manual) Seg Neutrophils # 12.0 H Seg Neutrophils # Man Lymphocytes # (Manual) Monocytes # (Manual) Eosinophils # (Manual) Nucleated RBC % Basophils # (Manual) PT INR APTT Heparin Anti-Xa Level ABG pH POC ABG pO2 ABG pO2 ABG HCO3 ABG O2 Saturation ABG Base Excess POC ABG pCO2 ABG Hemoglobin ABG Oxyhemoglobin ABG Chloride ABG Glucose Oxyhemoglobin Sodium Potassium Chloride Carbon Dioxide BUN Creatinine Glucose POC Glucose 128 H 128 H Lactic Acid Calcium Phosphorus Magnesium AST ALT Lactate Dehydrogenase Total Bilirubin Direct Bilirubin CK-MB (CK-2) C-Reactive Protein NT-Pro-B Natriuret Pep Total Protein Albumin Arterial Blood Glucose Urine WBC (Auto) Urine Creatinine 01/01/20 01/02/20 01/02/20 23:04 05:39 07:00 WBC RBC Hgb Hct MCHC RDW MCV MCH Lymph % (Auto) [place] % (Auto) [place] # Eos # Lymph # (Auto) [place] # (Auto) Eos # (Auto) Seg Neutrophils % Seg Neuts % (Manual) Baso # (Auto) Lymphocytes % (Manual) Monocytes % (Manual) Eosinophils % (Manual) Basophils % (Manual) Seg Neutrophils # Seg Neutrophils # Man Lymphocytes # (Manual) Monocytes # (Manual) Eosinophils # (Manual) Nucleated RBC % Basophils # (Manual) PT INR APTT Heparin Anti-Xa Level 0.13 L ABG pH POC ABG pO2 ABG pO2 ABG HCO3 ABG O2 Saturation ABG Base Excess POC ABG pCO2 ABG Hemoglobin ABG Oxyhemoglobin ABG Chloride ABG Glucose Oxyhemoglobin Sodium Potassium Chloride Carbon Dioxide BUN Creatinine Glucose POC Glucose 120 H 169 H Lactic Acid Calcium Phosphorus Magnesium AST ALT Lactate Dehydrogenase Total Bilirubin Direct Bilirubin CK-MB (CK-2) C-Reactive Protein NT-Pro-B Natriuret Pep Total Protein Albumin Arterial Blood Glucose Urine WBC (Auto) Urine Creatinine 01/02/20 01/02/20 01/02/20 12:15 14:06 17:58 WBC RBC Hgb Hct MCHC RDW MCV MCH Lymph % (Auto) [place] % (Auto) [place] # Eos # Lymph # (Auto) [place] # (Auto) Eos # (Auto) Seg Neutrophils % Seg Neuts % (Manual) Baso # (Auto) Lymphocytes % (Manual) Monocytes % (Manual) Eosinophils % (Manual) Basophils % (Manual) Seg Neutrophils # Seg Neutrophils # Man Lymphocytes # (Manual) Monocytes # (Manual) Eosinophils # (Manual) Nucleated RBC % Basophils # (Manual) PT INR APTT Heparin Anti-Xa Level < 0.10 L ABG pH POC ABG pO2 ABG pO2 ABG HCO3 ABG O2 Saturation ABG Base Excess POC ABG pCO2 ABG Hemoglobin ABG Oxyhemoglobin ABG Chloride ABG Glucose Oxyhemoglobin Sodium Potassium Chloride Carbon Dioxide BUN Creatinine Glucose POC Glucose 190 H 198 H Lactic Acid Calcium Phosphorus Magnesium AST ALT Lactate Dehydrogenase Total Bilirubin Direct Bilirubin CK-MB (CK-2) C-Reactive Protein NT-Pro-B Natriuret Pep Total Protein Albumin Arterial Blood Glucose Urine WBC (Auto) Urine Creatinine 01/02/20 01/02/20 01/03/20 21:43 23:33 05:42 WBC RBC Hgb Hct MCHC RDW MCV MCH Lymph % (Auto) [place] % (Auto) [place] # Eos # Lymph # (Auto) [place] # (Auto) Eos # (Auto) Seg Neutrophils % Seg Neuts % (Manual) Baso # (Auto) Lymphocytes % (Manual) Monocytes % (Manual) Eosinophils % (Manual) Basophils % (Manual) Seg Neutrophils # Seg Neutrophils # Man Lymphocytes # (Manual) Monocytes # (Manual) Eosinophils # (Manual) Nucleated RBC % Basophils # (Manual) PT INR APTT Heparin Anti-Xa Level 0.10 L ABG pH POC ABG pO2 ABG pO2 ABG HCO3 ABG O2 Saturation ABG Base Excess POC ABG pCO2 ABG Hemoglobin ABG Oxyhemoglobin ABG Chloride ABG Glucose Oxyhemoglobin Sodium Potassium Chloride Carbon Dioxide BUN Creatinine Glucose POC Glucose 180 H 163 H Lactic Acid Calcium Phosphorus Magnesium AST ALT Lactate Dehydrogenase Total Bilirubin Direct Bilirubin CK-MB (CK-2) C-Reactive Protein NT-Pro-B Natriuret Pep Total Protein Albumin Arterial Blood Glucose Urine WBC (Auto) Urine Creatinine 01/03/20 01/03/20 01/03/20 06:50 07:25 07:45 WBC 12.1 H RBC 3.35 L Hgb 9.0 L Hct 28.9 L MCHC 31 L RDW 16.6 H MCV MCH 27 L Lymph % (Auto) 13.0 L [place] % (Auto) 8.6 H [place] # Eos # Lymph # (Auto) [place] # (Auto) 1.0 H Eos # (Auto) Seg Neutrophils % 75.9 H Seg Neuts % (Manual) Baso # (Auto) Lymphocytes % (Manual) Monocytes % (Manual) Eosinophils % (Manual) Basophils % (Manual) Seg Neutrophils # 9.2 H Seg Neutrophils # Man Lymphocytes # (Manual) Monocytes # (Manual) Eosinophils # (Manual) Nucleated RBC % Basophils # (Manual) PT INR APTT Heparin Anti-Xa Level 0.29 L ABG pH POC ABG pO2 ABG pO2 ABG HCO3 ABG O2 Saturation ABG Base Excess POC ABG pCO2 ABG Hemoglobin ABG Oxyhemoglobin ABG Chloride ABG Glucose Oxyhemoglobin Sodium Potassium 3.3 L D Chloride Carbon Dioxide 35 H D BUN 23 H Creatinine 0.6 L Glucose 149 H POC Glucose Lactic Acid Calcium Phosphorus Magnesium AST ALT 88 H Lactate Dehydrogenase Total Bilirubin Direct Bilirubin CK-MB (CK-2) C-Reactive Protein NT-Pro-B Natriuret Pep Total Protein 6.2 L Albumin 2.9 L Arterial Blood Glucose Urine WBC (Auto) Urine Creatinine 01/03/20 01/03/20 01/03/20 12:05 17:42 18:30 WBC RBC Hgb Hct MCHC RDW MCV MCH Lymph % (Auto) [place] % (Auto) [place] # Eos # Lymph # (Auto) [place] # (Auto) Eos # (Auto) Seg Neutrophils % Seg Neuts % (Manual) Baso # (Auto) Lymphocytes % (Manual) Monocytes % (Manual) Eosinophils % (Manual) Basophils % (Manual) Seg Neutrophils # Seg Neutrophils # Man Lymphocytes # (Manual) Monocytes # (Manual) Eosinophils # (Manual) Nucleated RBC % Basophils # (Manual) PT INR APTT Heparin Anti-Xa Level ABG pH POC ABG pO2 ABG pO2 70.7 L ABG HCO3 36.1 H ABG O2 Saturation 94.4 L ABG Base Excess 10.0 H POC ABG pCO2 ABG Hemoglobin 9.7 L ABG Oxyhemoglobin ABG Chloride ABG Glucose Oxyhemoglobin 91.8 L Sodium Potassium Chloride Carbon Dioxide BUN Creatinine Glucose POC Glucose 128 H 132 H Lactic Acid Calcium Phosphorus Magnesium AST ALT Lactate Dehydrogenase Total Bilirubin Direct Bilirubin CK-MB (CK-2) C-Reactive Protein NT-Pro-B Natriuret Pep Total Protein Albumin Arterial Blood Glucose Urine WBC (Auto) Urine Creatinine 01/04/20 01/04/20 01/04/20 00:10 04:26 05:23 WBC RBC Hgb Hct MCHC RDW MCV MCH Lymph % (Auto) [place] % (Auto) [place] # Eos # Lymph # (Auto) [place] # (Auto) Eos # (Auto) Seg Neutrophils % Seg Neuts % (Manual) Baso # (Auto) Lymphocytes % (Manual) Monocytes % (Manual) Eosinophils % (Manual) Basophils % (Manual) Seg Neutrophils # Seg Neutrophils # Man Lymphocytes # (Manual) Monocytes # (Manual) Eosinophils # (Manual) Nucleated RBC % Basophils # (Manual) PT INR APTT Heparin Anti-Xa Level 0.16 L ABG pH POC ABG pO2 ABG pO2 ABG HCO3 ABG O2 Saturation ABG Base Excess POC ABG pCO2 ABG Hemoglobin ABG Oxyhemoglobin ABG Chloride ABG Glucose Oxyhemoglobin Sodium Potassium Chloride Carbon Dioxide BUN Creatinine Glucose POC Glucose 121 H 119 H Lactic Acid Calcium Phosphorus Magnesium AST ALT Lactate Dehydrogenase Total Bilirubin Direct Bilirubin CK-MB (CK-2) C-Reactive Protein NT-Pro-B Natriuret Pep Total Protein Albumin Arterial Blood Glucose Urine WBC (Auto) Urine Creatinine 01/04/20 01/04/20 01/04/20 09:50 09:50 12:18 WBC 15.4 H RBC 3.30 L Hgb 8.7 L Hct 28.2 L MCHC 31 L RDW 17.0 H MCV MCH 26 L Lymph % (Auto) [place] % (Auto) 7.6 H [place] # Eos # Lymph # (Auto) [place] # (Auto) 1.2 H Eos # (Auto) Seg Neutrophils % 75.4 H Seg Neuts % (Manual) Baso # (Auto) Lymphocytes % (Manual) Monocytes % (Manual) Eosinophils % (Manual) Basophils % (Manual) Seg Neutrophils # 11.6 H Seg Neutrophils # Man Lymphocytes # (Manual) Monocytes # (Manual) Eosinophils # (Manual) Nucleated RBC % Basophils # (Manual) PT INR APTT Heparin Anti-Xa Level ABG pH POC ABG pO2 ABG pO2 ABG HCO3 ABG O2 Saturation ABG Base Excess POC ABG pCO2 ABG Hemoglobin ABG Oxyhemoglobin ABG Chloride ABG Glucose Oxyhemoglobin Sodium 148 H Potassium 3.5 L Chloride Carbon Dioxide 32 H BUN Creatinine 0.6 L Glucose 114 H POC Glucose 111 H Lactic Acid Calcium Phosphorus Magnesium AST ALT 59 H Lactate Dehydrogenase Total Bilirubin Direct Bilirubin CK-MB (CK-2) C-Reactive Protein NT-Pro-B Natriuret Pep Total Protein Albumin 2.6 L Arterial Blood Glucose Urine WBC (Auto) Urine Creatinine 01/05/20 01/05/20 01/05/20 04:05 04:05 05:19 WBC 11.7 H RBC 3.50 L Hgb 9.3 L Hct 29.9 L MCHC 31 L RDW 16.6 H MCV MCH 27 L Lymph % (Auto) 13.1 L [place] % (Auto) 9.7 H [place] # Eos # Lymph # (Auto) [place] # (Auto) 1.1 H Eos # (Auto) Seg Neutrophils % 74.0 H Seg Neuts % (Manual) Baso # (Auto) Lymphocytes % (Manual) Monocytes % (Manual) Eosinophils % (Manual) Basophils % (Manual) Seg Neutrophils # 8.6 H Seg Neutrophils # Man Lymphocytes # (Manual) Monocytes # (Manual) Eosinophils # (Manual) Nucleated RBC % Basophils # (Manual) PT INR APTT Heparin Anti-Xa Level ABG pH POC ABG pO2 ABG pO2 ABG HCO3 ABG O2 Saturation ABG Base Excess POC ABG pCO2 ABG Hemoglobin ABG Oxyhemoglobin ABG Chloride ABG Glucose Oxyhemoglobin Sodium 151 H Potassium Chloride Carbon Dioxide 34 H BUN Creatinine 0.7 L Glucose POC Glucose 112 H Lactic Acid Calcium Phosphorus Magnesium AST ALT 59 H Lactate Dehydrogenase Total Bilirubin Direct Bilirubin CK-MB (CK-2) C-Reactive Protein NT-Pro-B Natriuret Pep Total Protein 5.8 L Albumin 2.6 L Arterial Blood Glucose Urine WBC (Auto) Urine Creatinine 01/05/20 01/06/20 01/06/20 16:04 00:23 04:44 WBC RBC 3.36 L Hgb 8.9 L Hct 28.7 L MCHC 31 L RDW 16.9 H MCV MCH 26 L Lymph % (Auto) [place] % (Auto) 9.4 H [place] # Eos # Lymph # (Auto) [place] # (Auto) Eos # (Auto) Seg Neutrophils % Seg Neuts % (Manual) Baso # (Auto) Lymphocytes % (Manual) Monocytes % (Manual) Eosinophils % (Manual) Basophils % (Manual) Seg Neutrophils # Seg Neutrophils # Man Lymphocytes # (Manual) Monocytes # (Manual) Eosinophils # (Manual) Nucleated RBC % Basophils # (Manual) PT INR APTT Heparin Anti-Xa Level ABG pH POC ABG pO2 ABG pO2 ABG HCO3 ABG O2 Saturation ABG Base Excess POC ABG pCO2 ABG Hemoglobin ABG Oxyhemoglobin ABG Chloride ABG Glucose Oxyhemoglobin Sodium 151 H Potassium 3.2 L Chloride Carbon Dioxide 34 H BUN Creatinine 0.6 L Glucose POC Glucose 107 H Lactic Acid Calcium Phosphorus Magnesium AST ALT Lactate Dehydrogenase Total Bilirubin Direct Bilirubin CK-MB (CK-2) C-Reactive Protein NT-Pro-B Natriuret Pep Total Protein Albumin Arterial Blood Glucose Urine WBC (Auto) Urine Creatinine 01/06/20 01/06/20 01/06/20 04:44 05:33 12:04 WBC RBC Hgb Hct MCHC RDW MCV MCH Lymph % (Auto) [place] % (Auto) [place] # Eos # Lymph # (Auto) [place] # (Auto) Eos # (Auto) Seg Neutrophils % Seg Neuts % (Manual) Baso # (Auto) Lymphocytes % (Manual) Monocytes % (Manual) Eosinophils % (Manual) Basophils % (Manual) Seg Neutrophils # Seg Neutrophils # Man Lymphocytes # (Manual) Monocytes # (Manual) Eosinophils # (Manual) Nucleated RBC % Basophils # (Manual) PT INR APTT Heparin Anti-Xa Level ABG pH POC ABG pO2 ABG pO2 ABG HCO3 ABG O2 Saturation ABG Base Excess POC ABG pCO2 ABG Hemoglobin ABG Oxyhemoglobin ABG Chloride ABG Glucose Oxyhemoglobin Sodium 151 H Potassium 3.4 L Chloride Carbon Dioxide 33 H BUN Creatinine 0.6 L Glucose 118 H POC Glucose 118 H 123 H Lactic Acid Calcium Phosphorus Magnesium AST ALT Lactate Dehydrogenase Total Bilirubin Direct Bilirubin CK-MB (CK-2) C-Reactive Protein NT-Pro-B Natriuret Pep Total Protein 6.2 L Albumin 2.6 L Arterial Blood Glucose Urine WBC (Auto) Urine Creatinine 01/06/20 01/07/20 01/07/20 17:54 00:06 04:10 WBC RBC 3.42 L Hgb 8.9 L Hct 29.0 L MCHC 31 L RDW 17.1 H MCV MCH 26 L Lymph % (Auto) [place] % (Auto) 8.4 H [place] # Eos # Lymph # (Auto) [place] # (Auto) Eos # (Auto) Seg Neutrophils % Seg Neuts % (Manual) Baso # (Auto) Lymphocytes % (Manual) Monocytes % (Manual) Eosinophils % (Manual) Basophils % (Manual) Seg Neutrophils # Seg Neutrophils # Man Lymphocytes # (Manual) Monocytes # (Manual) Eosinophils # (Manual) Nucleated RBC % Basophils # (Manual) PT INR APTT Heparin Anti-Xa Level ABG pH POC ABG pO2 ABG pO2 ABG HCO3 ABG O2 Saturation ABG Base Excess POC ABG pCO2 ABG Hemoglobin ABG Oxyhemoglobin ABG Chloride ABG Glucose Oxyhemoglobin Sodium Potassium Chloride Carbon Dioxide BUN Creatinine Glucose POC Glucose 112 H 126 H Lactic Acid Calcium Phosphorus Magnesium AST ALT Lactate Dehydrogenase Total Bilirubin Direct Bilirubin CK-MB (CK-2) C-Reactive Protein NT-Pro-B Natriuret Pep Total Protein Albumin Arterial Blood Glucose Urine WBC (Auto) Urine Creatinine 01/07/20 01/07/20 01/07/20 04:10 05:59 12:27 WBC RBC Hgb Hct MCHC RDW MCV MCH Lymph % (Auto) [place] % (Auto) [place] # Eos # Lymph # (Auto) [place] # (Auto) Eos # (Auto) Seg Neutrophils % Seg Neuts % (Manual) Baso # (Auto) Lymphocytes % (Manual) Monocytes % (Manual) Eosinophils % (Manual) Basophils % (Manual) Seg Neutrophils # Seg Neutrophils # Man Lymphocytes # (Manual) Monocytes # (Manual) Eosinophils # (Manual) Nucleated RBC % Basophils # (Manual) PT INR APTT Heparin Anti-Xa Level ABG pH POC ABG pO2 ABG pO2 ABG HCO3 ABG O2 Saturation ABG Base Excess POC ABG pCO2 ABG Hemoglobin ABG Oxyhemoglobin ABG Chloride ABG Glucose Oxyhemoglobin Sodium 153 H Potassium 3.5 L Chloride Carbon Dioxide 34 H BUN Creatinine 0.6 L Glucose 121 H POC Glucose 121 H 126 H Lactic Acid Calcium Phosphorus Magnesium AST ALT Lactate Dehydrogenase Total Bilirubin Direct Bilirubin CK-MB (CK-2) C-Reactive Protein NT-Pro-B Natriuret Pep Total Protein 5.9 L Albumin 2.4 L Arterial Blood Glucose Urine WBC (Auto) Urine Creatinine 01/07/20 01/08/20 01/08/20 18:12 00:03 05:41 WBC RBC Hgb Hct MCHC RDW MCV MCH Lymph % (Auto) [place] % (Auto) [place] # Eos # Lymph # (Auto) [place] # (Auto) Eos # (Auto) Seg Neutrophils % Seg Neuts % (Manual) Baso # (Auto) Lymphocytes % (Manual) Monocytes % (Manual) Eosinophils % (Manual) Basophils % (Manual) Seg Neutrophils # Seg Neutrophils # Man Lymphocytes # (Manual) Monocytes # (Manual) Eosinophils # (Manual) Nucleated RBC % Basophils # (Manual) PT INR APTT Heparin Anti-Xa Level ABG pH POC ABG pO2 ABG pO2 ABG HCO3 ABG O2 Saturation ABG Base Excess POC ABG pCO2 ABG Hemoglobin ABG Oxyhemoglobin ABG Chloride ABG Glucose Oxyhemoglobin Sodium Potassium Chloride Carbon Dioxide BUN Creatinine Glucose POC Glucose 124 H 130 H 138 H Lactic Acid Calcium Phosphorus Magnesium AST ALT Lactate Dehydrogenase Total Bilirubin Direct Bilirubin CK-MB (CK-2) C-Reactive Protein NT-Pro-B Natriuret Pep Total Protein Albumin Arterial Blood Glucose Urine WBC (Auto) Urine Creatinine 01/08/20 01/08/20 01/08/20 09:28 11:42 18:21 WBC RBC Hgb Hct MCHC RDW MCV MCH Lymph % (Auto) [place] % (Auto) [place] # Eos # Lymph # (Auto) [place] # (Auto) Eos # (Auto) Seg Neutrophils % Seg Neuts % (Manual) Baso # (Auto) Lymphocytes % (Manual) Monocytes % (Manual) Eosinophils % (Manual) Basophils % (Manual) Seg Neutrophils # Seg Neutrophils # Man Lymphocytes # (Manual) Monocytes # (Manual) Eosinophils # (Manual) Nucleated RBC % Basophils # (Manual) PT INR APTT Heparin Anti-Xa Level ABG pH POC ABG pO2 ABG pO2 ABG HCO3 ABG O2 Saturation ABG Base Excess POC ABG pCO2 ABG Hemoglobin ABG Oxyhemoglobin ABG Chloride ABG Glucose Oxyhemoglobin Sodium Potassium Chloride Carbon Dioxide BUN Creatinine Glucose POC Glucose 181 H 150 H 129 H Lactic Acid Calcium Phosphorus Magnesium AST ALT Lactate Dehydrogenase Total Bilirubin Direct Bilirubin CK-MB (CK-2) C-Reactive Protein NT-Pro-B Natriuret Pep Total Protein Albumin Arterial Blood Glucose Urine WBC (Auto) Urine Creatinine 01/08/20 01/08/20 01/09/20 19:25 23:55 04:11 WBC RBC 3.43 L Hgb 8.9 L Hct 28.7 L MCHC 31 L RDW 17.6 H MCV MCH 26 L Lymph % (Auto) [place] % (Auto) 8.6 H [place] # Eos # Lymph # (Auto) [place] # (Auto) Eos # (Auto) Seg Neutrophils % Seg Neuts % (Manual) Baso # (Auto) Lymphocytes % (Manual) Monocytes % (Manual) Eosinophils % (Manual) Basophils % (Manual) Seg Neutrophils # Seg Neutrophils # Man Lymphocytes # (Manual) Monocytes # (Manual) Eosinophils # (Manual) Nucleated RBC % Basophils # (Manual) PT INR APTT Heparin Anti-Xa Level ABG pH POC ABG pO2 ABG pO2 ABG HCO3 ABG O2 Saturation ABG Base Excess POC ABG pCO2 ABG Hemoglobin ABG Oxyhemoglobin ABG Chloride ABG Glucose Oxyhemoglobin Sodium Potassium Chloride Carbon Dioxide BUN Creatinine 0.7 L Glucose 117 H POC Glucose 132 H Lactic Acid Calcium Phosphorus Magnesium AST ALT Lactate Dehydrogenase Total Bilirubin Direct Bilirubin CK-MB (CK-2) C-Reactive Protein NT-Pro-B Natriuret Pep Total Protein Albumin Arterial Blood Glucose Urine WBC (Auto) Urine Creatinine 01/09/20 01/09/20 01/09/20 04:11 05:38 22:58 WBC RBC Hgb Hct MCHC RDW MCV MCH Lymph % (Auto) [place] % (Auto) [place] # Eos # Lymph # (Auto) [place] # (Auto) Eos # (Auto) Seg Neutrophils % Seg Neuts % (Manual) Baso # (Auto) Lymphocytes % (Manual) Monocytes % (Manual) Eosinophils % (Manual) Basophils % (Manual) Seg Neutrophils # Seg Neutrophils # Man Lymphocytes # (Manual) Monocytes # (Manual) Eosinophils # (Manual) Nucleated RBC % Basophils # (Manual) PT INR APTT Heparin Anti-Xa Level ABG pH POC ABG pO2 ABG pO2 ABG HCO3 ABG O2 Saturation ABG Base Excess POC ABG pCO2 ABG Hemoglobin ABG Oxyhemoglobin ABG Chloride ABG Glucose Oxyhemoglobin Sodium 147 H Potassium 3.3 L D Chloride Carbon Dioxide 32 H BUN Creatinine 0.6 L Glucose 106 H POC Glucose 107 H 113 H Lactic Acid Calcium Phosphorus Magnesium AST ALT Lactate Dehydrogenase Total Bilirubin Direct Bilirubin CK-MB (CK-2) C-Reactive Protein NT-Pro-B Natriuret Pep Total Protein Albumin Arterial Blood Glucose Urine WBC (Auto) Urine Creatinine 01/10/20 01/10/20 01/10/20 04:05 11:36 17:54 WBC RBC Hgb Hct MCHC RDW MCV MCH Lymph % (Auto) [place] % (Auto) [place] # Eos # Lymph # (Auto) [place] # (Auto) Eos # (Auto) Seg Neutrophils % Seg Neuts % (Manual) Baso # (Auto) Lymphocytes % (Manual) Monocytes % (Manual) Eosinophils % (Manual) Basophils % (Manual) Seg Neutrophils # Seg Neutrophils # Man Lymphocytes # (Manual) Monocytes # (Manual) Eosinophils # (Manual) Nucleated RBC % Basophils # (Manual) PT INR APTT Heparin Anti-Xa Level ABG pH POC ABG pO2 ABG pO2 ABG HCO3 ABG O2 Saturation ABG Base Excess POC ABG pCO2 ABG Hemoglobin ABG Oxyhemoglobin ABG Chloride ABG Glucose Oxyhemoglobin Sodium Potassium Chloride Carbon Dioxide BUN Creatinine 0.7 L Glucose 110 H POC Glucose 129 H 117 H Lactic Acid Calcium Phosphorus Magnesium AST ALT Lactate Dehydrogenase Total Bilirubin Direct Bilirubin CK-MB (CK-2) C-Reactive Protein NT-Pro-B Natriuret Pep Total Protein Albumin Arterial Blood Glucose Urine WBC (Auto) Urine Creatinine 01/10/20 01/11/20 01/11/20 23:52 03:19 12:09 WBC RBC Hgb Hct MCHC RDW MCV MCH Lymph % (Auto) [place] % (Auto) [place] # Eos # Lymph # (Auto) [place] # (Auto) Eos # (Auto) Seg Neutrophils % Seg Neuts % (Manual) Baso # (Auto) Lymphocytes % (Manual) Monocytes % (Manual) Eosinophils % (Manual) Basophils % (Manual) Seg Neutrophils # Seg Neutrophils # Man Lymphocytes # (Manual) Monocytes # (Manual) Eosinophils # (Manual) Nucleated RBC % Basophils # (Manual) PT INR APTT Heparin Anti-Xa Level ABG pH POC ABG pO2 ABG pO2 ABG HCO3 ABG O2 Saturation ABG Base Excess POC ABG pCO2 ABG Hemoglobin ABG Oxyhemoglobin ABG Chloride ABG Glucose Oxyhemoglobin Sodium Potassium Chloride Carbon Dioxide BUN Creatinine Glucose POC Glucose 117 H 136 H 115 H Lactic Acid Calcium Phosphorus Magnesium AST ALT Lactate Dehydrogenase Total Bilirubin Direct Bilirubin CK-MB (CK-2) C-Reactive Protein NT-Pro-B Natriuret Pep Total Protein Albumin Arterial Blood Glucose Urine WBC (Auto) Urine Creatinine 01/11/20 01/11/20 01/12/20 18:27 23:28 00:23 WBC RBC Hgb 9.8 L Hct 31.6 L MCHC 31 L RDW 17.8 H MCV 83 L MCH 26 L Lymph % (Auto) [place] % (Auto) 8.0 H [place] # Eos # Lymph # (Auto) [place] # (Auto) Eos # (Auto) Seg Neutrophils % Seg Neuts % (Manual) Baso # (Auto) Lymphocytes % (Manual) Monocytes % (Manual) Eosinophils % (Manual) Basophils % (Manual) Seg Neutrophils # Seg Neutrophils # Man Lymphocytes # (Manual) Monocytes # (Manual) Eosinophils # (Manual) Nucleated RBC % Basophils # (Manual) PT INR APTT Heparin Anti-Xa Level ABG pH POC ABG pO2 ABG pO2 ABG HCO3 ABG O2 Saturation ABG Base Excess POC ABG pCO2 ABG Hemoglobin ABG Oxyhemoglobin ABG Chloride ABG Glucose Oxyhemoglobin Sodium Potassium Chloride Carbon Dioxide BUN Creatinine Glucose POC Glucose 118 H 122 H Lactic Acid Calcium Phosphorus Magnesium AST ALT Lactate Dehydrogenase Total Bilirubin Direct Bilirubin CK-MB (CK-2) C-Reactive Protein NT-Pro-B Natriuret Pep Total Protein Albumin Arterial Blood Glucose Urine WBC (Auto) Urine Creatinine 01/12/20 01/12/20 01/12/20 00:23 04:18 04:18 WBC RBC Hgb 9.6 L Hct 30.9 L MCHC 31 L RDW 17.3 H MCV 81 L MCH 25 L Lymph % (Auto) [place] % (Auto) [place] # Eos # Lymph # (Auto) [place] # (Auto) Eos # (Auto) Seg Neutrophils % Seg Neuts % (Manual) Baso # (Auto) Lymphocytes % (Manual) Monocytes % (Manual) Eosinophils % (Manual) Basophils % (Manual) Seg Neutrophils # Seg Neutrophils # Man Lymphocytes # (Manual) Monocytes # (Manual) Eosinophils # (Manual) Nucleated RBC % Basophils # (Manual) PT INR APTT Heparin Anti-Xa Level ABG pH POC ABG pO2 ABG pO2 ABG HCO3 ABG O2 Saturation ABG Base Excess POC ABG pCO2 ABG Hemoglobin ABG Oxyhemoglobin ABG Chloride ABG Glucose Oxyhemoglobin Sodium Potassium Chloride Carbon Dioxide BUN Creatinine 0.7 L 0.7 L Glucose 111 H 108 H POC Glucose Lactic Acid Calcium Phosphorus Magnesium AST ALT Lactate Dehydrogenase Total Bilirubin Direct Bilirubin CK-MB (CK-2) C-Reactive Protein NT-Pro-B Natriuret Pep Total Protein Albumin 2.6 L Arterial Blood Glucose Urine WBC (Auto) Urine Creatinine 01/12/20 01/12/20 01/12/20 06:03 12:27 13:58 WBC RBC Hgb Hct MCHC RDW MCV MCH Lymph % (Auto) [place] % (Auto) [place] # Eos # Lymph # (Auto) [place] # (Auto) Eos # (Auto) Seg Neutrophils % Seg Neuts % (Manual) Baso # (Auto) Lymphocytes % (Manual) Monocytes % (Manual) Eosinophils % (Manual) Basophils % (Manual) Seg Neutrophils # Seg Neutrophils # Man Lymphocytes # (Manual) Monocytes # (Manual) Eosinophils # (Manual) Nucleated RBC % Basophils # (Manual) PT INR APTT Heparin Anti-Xa Level ABG pH 7.453 H POC ABG pO2 76.6 L ABG pO2 ABG HCO3 ABG O2 Saturation ABG Base Excess POC ABG pCO2 ABG Hemoglobin 10.3 L ABG Oxyhemoglobin ABG Chloride ABG Glucose 99 H Oxyhemoglobin Sodium Potassium Chloride Carbon Dioxide BUN Creatinine Glucose POC Glucose 128 H 121 H Lactic Acid Calcium Phosphorus Magnesium AST ALT Lactate Dehydrogenase Total Bilirubin Direct Bilirubin CK-MB (CK-2) C-Reactive Protein NT-Pro-B Natriuret Pep Total Protein Albumin Arterial Blood Glucose 99 H Urine WBC (Auto) Urine Creatinine 01/12/20 01/13/20 01/13/20 18:24 12:01 17:46 WBC RBC Hgb Hct MCHC RDW MCV MCH Lymph % (Auto) [place] % (Auto) [place] # Eos # Lymph # (Auto) [place] # (Auto) Eos # (Auto) Seg Neutrophils % Seg Neuts % (Manual) Baso # (Auto) Lymphocytes % (Manual) Monocytes % (Manual) Eosinophils % (Manual) Basophils % (Manual) Seg Neutrophils # Seg Neutrophils # Man Lymphocytes # (Manual) Monocytes # (Manual) Eosinophils # (Manual) Nucleated RBC % Basophils # (Manual) PT INR APTT Heparin Anti-Xa Level ABG pH POC ABG pO2 ABG pO2 ABG HCO3 ABG O2 Saturation ABG Base Excess POC ABG pCO2 ABG Hemoglobin ABG Oxyhemoglobin ABG Chloride ABG Glucose Oxyhemoglobin Sodium Potassium Chloride Carbon Dioxide BUN Creatinine Glucose POC Glucose 119 H 107 H 124 H Lactic Acid Calcium Phosphorus Magnesium AST ALT Lactate Dehydrogenase Total Bilirubin Direct Bilirubin CK-MB (CK-2) C-Reactive Protein NT-Pro-B Natriuret Pep Total Protein Albumin Arterial Blood Glucose Urine WBC (Auto) Urine Creatinine 01/13/20 01/14/20 01/14/20 20:40 00:10 05:33 WBC RBC Hgb Hct MCHC RDW MCV MCH Lymph % (Auto) [place] % (Auto) [place] # Eos # Lymph # (Auto) [place] # (Auto) Eos # (Auto) Seg Neutrophils % Seg Neuts % (Manual) Baso # (Auto) Lymphocytes % (Manual) Monocytes % (Manual) Eosinophils % (Manual) Basophils % (Manual) Seg Neutrophils # Seg Neutrophils # Man Lymphocytes # (Manual) Monocytes # (Manual) Eosinophils # (Manual) Nucleated RBC % Basophils # (Manual) PT INR APTT Heparin Anti-Xa Level ABG pH POC ABG pO2 ABG pO2 65.3 L ABG HCO3 31.8 H ABG O2 Saturation 93.5 L ABG Base Excess 6.7 H POC ABG pCO2 ABG Hemoglobin 13.3 L ABG Oxyhemoglobin ABG Chloride ABG Glucose Oxyhemoglobin 90.9 L Sodium Potassium Chloride Carbon Dioxide BUN Creatinine Glucose POC Glucose 111 H 111 H Lactic Acid Calcium Phosphorus Magnesium AST ALT Lactate Dehydrogenase Total Bilirubin Direct Bilirubin CK-MB (CK-2) C-Reactive Protein NT-Pro-B Natriuret Pep Total Protein Albumin Arterial Blood Glucose Urine WBC (Auto) Urine Creatinine 1001/14/20 01/14/20 12:10 16:14 16:14 WBC RBC Hgb 10.6 L Hct 34.2 L MCHC 31 L RDW 18.3 H MCV 83 L MCH 26 L Lymph % (Auto) [place] % (Auto) 7.4 H [place] # Eos # Lymph # (Auto) [place] # (Auto) Eos # (Auto) Seg Neutrophils % 71.9 H Seg Neuts % (Manual) Baso # (Auto) Lymphocytes % (Manual) Monocytes % (Manual) Eosinophils % (Manual) Basophils % (Manual) Seg Neutrophils # Seg Neutrophils # Man Lymphocytes # (Manual) Monocytes # (Manual) Eosinophils # (Manual) Nucleated RBC % Basophils # (Manual) PT INR APTT Heparin Anti-Xa Level ABG pH POC ABG pO2 ABG pO2 ABG HCO3 ABG O2 Saturation ABG Base Excess POC ABG pCO2 ABG Hemoglobin ABG Oxyhemoglobin ABG Chloride ABG Glucose Oxyhemoglobin Sodium Potassium Chloride Carbon Dioxide 31 H BUN Creatinine 0.6 L Glucose 131 H POC Glucose 139 H Lactic Acid Calcium Phosphorus Magnesium AST ALT Lactate Dehydrogenase Total Bilirubin Direct Bilirubin CK-MB (CK-2) C-Reactive Protein NT-Pro-B Natriuret Pep Total Protein Albumin Arterial Blood Glucose Urine WBC (Auto) Urine Creatinine 01/14/20 01/15/20 01/15/20 18:05 00:52 05:35 WBC RBC Hgb Hct MCHC RDW MCV MCH Lymph % (Auto) [place] % (Auto) [place] # Eos # Lymph # (Auto) [place] # (Auto) Eos # (Auto) Seg Neutrophils % Seg Neuts % (Manual) Baso # (Auto) Lymphocytes % (Manual) Monocytes % (Manual) Eosinophils % (Manual) Basophils % (Manual) Seg Neutrophils # Seg Neutrophils # Man Lymphocytes # (Manual) Monocytes # (Manual) Eosinophils # (Manual) Nucleated RBC % Basophils # (Manual) PT INR APTT Heparin Anti-Xa Level ABG pH POC ABG pO2 ABG pO2 ABG HCO3 ABG O2 Saturation ABG Base Excess POC ABG pCO2 ABG Hemoglobin ABG Oxyhemoglobin ABG Chloride ABG Glucose Oxyhemoglobin Sodium Potassium Chloride Carbon Dioxide BUN Creatinine Glucose POC Glucose 147 H 140 H 159 H Lactic Acid Calcium Phosphorus Magnesium AST ALT Lactate Dehydrogenase Total Bilirubin Direct Bilirubin CK-MB (CK-2) C-Reactive Protein NT-Pro-B Natriuret Pep Total Protein Albumin Arterial Blood Glucose Urine WBC (Auto) Urine Creatinine 01/15/20 01/15/20 01/16/20 12:52 17:43 00:32 WBC RBC Hgb Hct MCHC RDW MCV MCH Lymph % (Auto) [place] % (Auto) [place] # Eos # Lymph # (Auto) [place] # (Auto) Eos # (Auto) Seg Neutrophils % Seg Neuts % (Manual) Baso # (Auto) Lymphocytes % (Manual) Monocytes % (Manual) Eosinophils % (Manual) Basophils % (Manual) Seg Neutrophils # Seg Neutrophils # Man Lymphocytes # (Manual) Monocytes # (Manual) Eosinophils # (Manual) Nucleated RBC % Basophils # (Manual) PT INR APTT Heparin Anti-Xa Level ABG pH POC ABG pO2 ABG pO2 ABG HCO3 ABG O2 Saturation ABG Base Excess POC ABG pCO2 ABG Hemoglobin ABG Oxyhemoglobin ABG Chloride ABG Glucose Oxyhemoglobin Sodium Potassium Chloride Carbon Dioxide BUN Creatinine Glucose POC Glucose 164 H 167 H 153 H Lactic Acid Calcium Phosphorus Magnesium AST ALT Lactate Dehydrogenase Total Bilirubin Direct Bilirubin CK-MB (CK-2) C-Reactive Protein NT-Pro-B Natriuret Pep Total Protein Albumin Arterial Blood Glucose Urine WBC (Auto) Urine Creatinine 01/16/20 01/16/20 01/17/20 05:46 11:48 06:38 WBC RBC Hgb Hct MCHC RDW MCV MCH Lymph % (Auto) [place] % (Auto) [place] # Eos # Lymph # (Auto) [place] # (Auto) Eos # (Auto) Seg Neutrophils % Seg Neuts % (Manual) Baso # (Auto) Lymphocytes % (Manual) Monocytes % (Manual) Eosinophils % (Manual) Basophils % (Manual) Seg Neutrophils # Seg Neutrophils # Man Lymphocytes # (Manual) Monocytes # (Manual) Eosinophils # (Manual) Nucleated RBC % Basophils # (Manual) PT INR APTT Heparin Anti-Xa Level ABG pH POC ABG pO2 ABG pO2 ABG HCO3 ABG O2 Saturation ABG Base Excess POC ABG pCO2 ABG Hemoglobin ABG Oxyhemoglobin ABG Chloride ABG Glucose Oxyhemoglobin Sodium Potassium Chloride Carbon Dioxide BUN Creatinine Glucose POC Glucose 163 H 155 H 116 H Lactic Acid Calcium Phosphorus Magnesium AST ALT Lactate Dehydrogenase Total Bilirubin Direct Bilirubin CK-MB (CK-2) C-Reactive Protein NT-Pro-B Natriuret Pep Total Protein Albumin Arterial Blood Glucose Urine WBC (Auto) Urine Creatinine 01/17/20 01/17/20 01/18/20 11:36 17:43 00:12 WBC RBC Hgb Hct MCHC RDW MCV MCH Lymph % (Auto) [place] % (Auto) [place] # Eos # Lymph # (Auto) [place] # (Auto) Eos # (Auto) Seg Neutrophils % Seg Neuts % (Manual) Baso # (Auto) Lymphocytes % (Manual) Monocytes % (Manual) Eosinophils % (Manual) Basophils % (Manual) Seg Neutrophils # Seg Neutrophils # Man Lymphocytes # (Manual) Monocytes # (Manual) Eosinophils # (Manual) Nucleated RBC % Basophils # (Manual) PT INR APTT Heparin Anti-Xa Level ABG pH POC ABG pO2 ABG pO2 ABG HCO3 ABG O2 Saturation ABG Base Excess POC ABG pCO2 ABG Hemoglobin ABG Oxyhemoglobin ABG Chloride ABG Glucose Oxyhemoglobin Sodium Potassium Chloride Carbon Dioxide BUN Creatinine Glucose POC Glucose 110 H 134 H 108 H Lactic Acid Calcium Phosphorus Magnesium AST ALT Lactate Dehydrogenase Total Bilirubin Direct Bilirubin CK-MB (CK-2) C-Reactive Protein NT-Pro-B Natriuret Pep Total Protein Albumin Arterial Blood Glucose Urine WBC (Auto) Urine Creatinine 01/18/20 01/18/20 01/18/20 05:37 06:46 06:46 WBC RBC Hgb 10.1 L Hct 32.2 L MCHC 31 L RDW 18.1 H MCV 81 L MCH 25 L Lymph % (Auto) [place] % (Auto) [place] # Eos # Lymph # (Auto) [place] # (Auto) Eos # (Auto) Seg Neutrophils % 71.9 H Seg Neuts % (Manual) Baso # (Auto) Lymphocytes % (Manual) Monocytes % (Manual) Eosinophils % (Manual) Basophils % (Manual) Seg Neutrophils # Seg Neutrophils # Man Lymphocytes # (Manual) Monocytes # (Manual) Eosinophils # (Manual) Nucleated RBC % Basophils # (Manual) PT INR APTT Heparin Anti-Xa Level ABG pH POC ABG pO2 ABG pO2 ABG HCO3 ABG O2 Saturation ABG Base Excess POC ABG pCO2 ABG Hemoglobin ABG Oxyhemoglobin ABG Chloride ABG Glucose Oxyhemoglobin Sodium Potassium Chloride Carbon Dioxide BUN Creatinine 0.7 L Glucose 155 H POC Glucose 168 H Lactic Acid Calcium Phosphorus Magnesium AST ALT Lactate Dehydrogenase Total Bilirubin Direct Bilirubin CK-MB (CK-2) C-Reactive Protein NT-Pro-B Natriuret Pep Total Protein Albumin Arterial Blood Glucose Urine WBC (Auto) Urine Creatinine 01/18/20 01/18/20 01/18/20 12:05 17:14 23:28 WBC RBC Hgb Hct MCHC RDW MCV MCH Lymph % (Auto) [place] % (Auto) [place] # Eos # Lymph # (Auto) [place] # (Auto) Eos # (Auto) Seg Neutrophils % Seg Neuts % (Manual) Baso # (Auto) Lymphocytes % (Manual) Monocytes % (Manual) Eosinophils % (Manual) Basophils % (Manual) Seg Neutrophils # Seg Neutrophils # Man Lymphocytes # (Manual) Monocytes # (Manual) Eosinophils # (Manual) Nucleated RBC % Basophils # (Manual) PT INR APTT Heparin Anti-Xa Level ABG pH POC ABG pO2 ABG pO2 ABG HCO3 ABG O2 Saturation ABG Base Excess POC ABG pCO2 ABG Hemoglobin ABG Oxyhemoglobin ABG Chloride ABG Glucose Oxyhemoglobin Sodium Potassium Chloride Carbon Dioxide BUN Creatinine Glucose POC Glucose 128 H 126 H 128 H Lactic Acid Calcium Phosphorus Magnesium AST ALT Lactate Dehydrogenase Total Bilirubin Direct Bilirubin CK-MB (CK-2) C-Reactive Protein NT-Pro-B Natriuret Pep Total Protein Albumin Arterial Blood Glucose Urine WBC (Auto) Urine Creatinine 01/19/20 01/19/20 01/19/20 05:39 12:33 17:36 WBC RBC Hgb Hct MCHC RDW MCV MCH Lymph % (Auto) [place] % (Auto) [place] # Eos # Lymph # (Auto) [place] # (Auto) Eos # (Auto) Seg Neutrophils % Seg Neuts % (Manual) Baso # (Auto) Lymphocytes % (Manual) Monocytes % (Manual) Eosinophils % (Manual) Basophils % (Manual) Seg Neutrophils # Seg Neutrophils # Man Lymphocytes # (Manual) Monocytes # (Manual) Eosinophils # (Manual) Nucleated RBC % Basophils # (Manual) PT INR APTT Heparin Anti-Xa Level ABG pH POC ABG pO2 ABG pO2 ABG HCO3 ABG O2 Saturation ABG Base Excess POC ABG pCO2 ABG Hemoglobin ABG Oxyhemoglobin ABG Chloride ABG Glucose Oxyhemoglobin Sodium Potassium Chloride Carbon Dioxide BUN Creatinine Glucose POC Glucose 164 H 171 H 152 H Lactic Acid Calcium Phosphorus Magnesium AST ALT Lactate Dehydrogenase Total Bilirubin Direct Bilirubin CK-MB (CK-2) C-Reactive Protein NT-Pro-B Natriuret Pep Total Protein Albumin Arterial Blood Glucose Urine WBC (Auto) Urine Creatinine 01/20/20 01/20/20 01/20/20 00:12 05:20 05:35 WBC RBC Hgb 9.2 L Hct 29.4 L MCHC 31 L RDW 17.9 H MCV 81 L MCH 25 L Lymph % (Auto) [place] % (Auto) [place] # Eos # Lymph # (Auto) [place] # (Auto) Eos # (Auto) Seg Neutrophils % Seg Neuts % (Manual) Baso # (Auto) Lymphocytes % (Manual) Monocytes % (Manual) Eosinophils % (Manual) Basophils % (Manual) Seg Neutrophils # Seg Neutrophils # Man Lymphocytes # (Manual) Monocytes # (Manual) Eosinophils # (Manual) Nucleated RBC % Basophils # (Manual) PT INR APTT Heparin Anti-Xa Level ABG pH POC ABG pO2 ABG pO2 ABG HCO3 ABG O2 Saturation ABG Base Excess POC ABG pCO2 ABG Hemoglobin ABG Oxyhemoglobin ABG Chloride ABG Glucose Oxyhemoglobin Sodium Potassium Chloride Carbon Dioxide BUN Creatinine Glucose POC Glucose 120 H 136 H Lactic Acid Calcium Phosphorus Magnesium AST ALT Lactate Dehydrogenase Total Bilirubin Direct Bilirubin CK-MB (CK-2) C-Reactive Protein NT-Pro-B Natriuret Pep Total Protein Albumin Arterial Blood Glucose Urine WBC (Auto) Urine Creatinine 01/20/20 01/20/20 01/20/20 05:40 11:58 14:55 WBC RBC Hgb 9.0 L Hct 28.3 L MCHC RDW MCV MCH Lymph % (Auto) [place] % (Auto) [place] # Eos # Lymph # (Auto) [place] # (Auto) Eos # (Auto) Seg Neutrophils % Seg Neuts % (Manual) Baso # (Auto) Lymphocytes % (Manual) Monocytes % (Manual) Eosinophils % (Manual) Basophils % (Manual) Seg Neutrophils # Seg Neutrophils # Man Lymphocytes # (Manual) Monocytes # (Manual) Eosinophils # (Manual) Nucleated RBC % Basophils # (Manual) PT INR APTT Heparin Anti-Xa Level ABG pH POC ABG pO2 ABG pO2 ABG HCO3 ABG O2 Saturation ABG Base Excess POC ABG pCO2 ABG Hemoglobin ABG Oxyhemoglobin ABG Chloride ABG Glucose Oxyhemoglobin Sodium Potassium Chloride Carbon Dioxide 32 H BUN 22 H Creatinine 0.7 L Glucose 128 H POC Glucose 152 H Lactic Acid Calcium Phosphorus Magnesium AST ALT Lactate Dehydrogenase Total Bilirubin Direct Bilirubin CK-MB (CK-2) C-Reactive Protein NT-Pro-B Natriuret Pep Total Protein Albumin Arterial Blood Glucose Urine WBC (Auto) Urine Creatinine 01/20/20 01/20/20 01/20/20 14:55 18:14 21:35 WBC RBC Hgb Hct MCHC RDW MCV MCH Lymph % (Auto) [place] % (Auto) [place] # Eos # Lymph # (Auto) [place] # (Auto) Eos # (Auto) Seg Neutrophils % Seg Neuts % (Manual) Baso # (Auto) Lymphocytes % (Manual) Monocytes % (Manual) Eosinophils % (Manual) Basophils % (Manual) Seg Neutrophils # Seg Neutrophils # Man Lymphocytes # (Manual) Monocytes # (Manual) Eosinophils # (Manual) Nucleated RBC % Basophils # (Manual) PT 20.4 H INR 1.72 H APTT 40.6 H Heparin Anti-Xa Level > 2.00 H ABG pH POC ABG pO2 ABG pO2 ABG HCO3 ABG O2 Saturation ABG Base Excess POC ABG pCO2 ABG Hemoglobin ABG Oxyhemoglobin ABG Chloride ABG Glucose Oxyhemoglobin Sodium Potassium Chloride Carbon Dioxide BUN Creatinine Glucose POC Glucose 150 H Lactic Acid Calcium Phosphorus Magnesium AST ALT Lactate Dehydrogenase Total Bilirubin Direct Bilirubin CK-MB (CK-2) C-Reactive Protein NT-Pro-B Natriuret Pep Total Protein Albumin Arterial Blood Glucose Urine WBC (Auto) Urine Creatinine 01/21/20 01/21/20 01/21/20 00:30 05:47 05:59 WBC RBC Hgb Hct MCHC RDW MCV MCH Lymph % (Auto) [place] % (Auto) [place] # Eos # Lymph # (Auto) [place] # (Auto) Eos # (Auto) Seg Neutrophils % Seg Neuts % (Manual) Baso # (Auto) Lymphocytes % (Manual) Monocytes % (Manual) Eosinophils % (Manual) Basophils % (Manual) Seg Neutrophils # Seg Neutrophils # Man Lymphocytes # (Manual) Monocytes # (Manual) Eosinophils # (Manual) Nucleated RBC % Basophils # (Manual) PT INR APTT Heparin Anti-Xa Level 1.93 H ABG pH POC ABG pO2 ABG pO2 ABG HCO3 ABG O2 Saturation ABG Base Excess POC ABG pCO2 ABG Hemoglobin ABG Oxyhemoglobin ABG Chloride ABG Glucose Oxyhemoglobin Sodium Potassium Chloride Carbon Dioxide BUN Creatinine Glucose POC Glucose 126 H 148 H Lactic Acid Calcium Phosphorus Magnesium AST ALT Lactate Dehydrogenase Total Bilirubin Direct Bilirubin CK-MB (CK-2) C-Reactive Protein NT-Pro-B Natriuret Pep Total Protein Albumin Arterial Blood Glucose Urine WBC (Auto) Urine Creatinine 01/21/20 01/21/20 01/21/20 12:32 18:20 23:54 WBC RBC Hgb Hct MCHC RDW MCV MCH Lymph % (Auto) [place] % (Auto) [place] # Eos # Lymph # (Auto) [place] # (Auto) Eos # (Auto) Seg Neutrophils % Seg Neuts % (Manual) Baso # (Auto) Lymphocytes % (Manual) Monocytes % (Manual) Eosinophils % (Manual) Basophils % (Manual) Seg Neutrophils # Seg Neutrophils # Man Lymphocytes # (Manual) Monocytes # (Manual) Eosinophils # (Manual) Nucleated RBC % Basophils # (Manual) PT INR APTT Heparin Anti-Xa Level 1.28 H ABG pH POC ABG pO2 ABG pO2 ABG HCO3 ABG O2 Saturation ABG Base Excess POC ABG pCO2 ABG Hemoglobin ABG Oxyhemoglobin ABG Chloride ABG Glucose Oxyhemoglobin Sodium Potassium Chloride Carbon Dioxide BUN Creatinine Glucose POC Glucose 112 H 146 H Lactic Acid Calcium Phosphorus Magnesium AST ALT Lactate Dehydrogenase Total Bilirubin Direct Bilirubin CK-MB (CK-2) C-Reactive Protein NT-Pro-B Natriuret Pep Total Protein Albumin Arterial Blood Glucose Urine WBC (Auto) Urine Creatinine 01/22/20 01/22/20 01/22/20 04:45 04:45 05:48 WBC RBC Hgb 9.3 L Hct 29.0 L MCHC RDW MCV MCH Lymph % (Auto) [place] % (Auto) [place] # Eos # Lymph # (Auto) [place] # (Auto) Eos # (Auto) Seg Neutrophils % Seg Neuts % (Manual) Baso # (Auto) Lymphocytes % (Manual) Monocytes % (Manual) Eosinophils % (Manual) Basophils % (Manual) Seg Neutrophils # Seg Neutrophils # Man Lymphocytes # (Manual) Monocytes # (Manual) Eosinophils # (Manual) Nucleated RBC % Basophils # (Manual) PT INR APTT Heparin Anti-Xa Level 1.34 H ABG pH POC ABG pO2 ABG pO2 ABG HCO3 ABG O2 Saturation ABG Base Excess POC ABG pCO2 ABG Hemoglobin ABG Oxyhemoglobin ABG Chloride ABG Glucose Oxyhemoglobin Sodium Potassium Chloride Carbon Dioxide BUN Creatinine Glucose POC Glucose 142 H Lactic Acid Calcium Phosphorus Magnesium AST ALT Lactate Dehydrogenase Total Bilirubin Direct Bilirubin CK-MB (CK-2) C-Reactive Protein NT-Pro-B Natriuret Pep Total Protein Albumin Arterial Blood Glucose Urine WBC (Auto) Urine Creatinine 01/22/20 01/22/20 01/22/20 08:09 08:22 09:58 WBC RBC Hgb Hct MCHC RDW MCV MCH Lymph % (Auto) [place] % (Auto) [place] # Eos # Lymph # (Auto) [place] # (Auto) Eos # (Auto) Seg Neutrophils % Seg Neuts % (Manual) Baso # (Auto) Lymphocytes % (Manual) Monocytes % (Manual) Eosinophils % (Manual) Basophils % (Manual) Seg Neutrophils # Seg Neutrophils # Man Lymphocytes # (Manual) Monocytes # (Manual) Eosinophils # (Manual) Nucleated RBC % Basophils # (Manual) PT 16.9 H INR 1.34 H APTT Heparin Anti-Xa Level ABG pH POC ABG pO2 ABG pO2 ABG HCO3 ABG O2 Saturation ABG Base Excess POC ABG pCO2 ABG Hemoglobin ABG Oxyhemoglobin ABG Chloride ABG Glucose Oxyhemoglobin Sodium Potassium Chloride 97.8 L Carbon Dioxide BUN 29 H Creatinine Glucose 128 H POC Glucose 131 H Lactic Acid Calcium Phosphorus Magnesium AST ALT Lactate Dehydrogenase Total Bilirubin Direct Bilirubin CK-MB (CK-2) C-Reactive Protein NT-Pro-B Natriuret Pep Total Protein Albumin Arterial Blood Glucose Urine WBC (Auto) Urine Creatinine 01/22/20 01/22/20 01/22/20 12:44 16:13 18:18 WBC RBC Hgb Hct MCHC RDW MCV MCH Lymph % (Auto) [place] % (Auto) [place] # Eos # Lymph # (Auto) [place] # (Auto) Eos # (Auto) Seg Neutrophils % Seg Neuts % (Manual) Baso # (Auto) Lymphocytes % (Manual) Monocytes % (Manual) Eosinophils % (Manual) Basophils % (Manual) Seg Neutrophils # Seg Neutrophils # Man Lymphocytes # (Manual) Monocytes # (Manual) Eosinophils # (Manual) Nucleated RBC % Basophils # (Manual) PT INR APTT Heparin Anti-Xa Level ABG pH POC ABG pO2 ABG pO2 ABG HCO3 ABG O2 Saturation ABG Base Excess POC ABG pCO2 ABG Hemoglobin ABG Oxyhemoglobin ABG Chloride ABG Glucose Oxyhemoglobin Sodium Potassium Chloride Carbon Dioxide BUN Creatinine Glucose POC Glucose 156 H 133 H 155 H Lactic Acid Calcium Phosphorus Magnesium AST ALT Lactate Dehydrogenase Total Bilirubin Direct Bilirubin CK-MB (CK-2) C-Reactive Protein NT-Pro-B Natriuret Pep Total Protein Albumin Arterial Blood Glucose Urine WBC (Auto) Urine Creatinine 01/22/20 01/23/20 01/23/20 23:22 05:37 12:59 WBC RBC Hgb Hct MCHC RDW MCV MCH Lymph % (Auto) [place] % (Auto) [place] # Eos # Lymph # (Auto) [place] # (Auto) Eos # (Auto) Seg Neutrophils % Seg Neuts % (Manual) Baso # (Auto) Lymphocytes % (Manual) Monocytes % (Manual) Eosinophils % (Manual) Basophils % (Manual) Seg Neutrophils # Seg Neutrophils # Man Lymphocytes # (Manual) Monocytes # (Manual) Eosinophils # (Manual) Nucleated RBC % Basophils # (Manual) PT INR APTT Heparin Anti-Xa Level ABG pH POC ABG pO2 ABG pO2 ABG HCO3 ABG O2 Saturation ABG Base Excess POC ABG pCO2 ABG Hemoglobin ABG Oxyhemoglobin ABG Chloride ABG Glucose Oxyhemoglobin Sodium Potassium Chloride Carbon Dioxide BUN Creatinine Glucose POC Glucose 148 H 163 H 175 H Lactic Acid Calcium Phosphorus Magnesium AST ALT Lactate Dehydrogenase Total Bilirubin Direct Bilirubin CK-MB (CK-2) C-Reactive Protein NT-Pro-B Natriuret Pep Total Protein Albumin Arterial Blood Glucose Urine WBC (Auto) Urine Creatinine 01/23/20 01/23/20 01/24/20 17:28 23:56 04:30 WBC RBC 3.46 L Hgb 8.8 L Hct 27.8 L MCHC RDW 18.2 H MCV 81 L MCH 25 L Lymph % (Auto) [place] % (Auto) 7.8 H [place] # Eos # Lymph # (Auto) [place] # (Auto) Eos # (Auto) Seg Neutrophils % Seg Neuts % (Manual) Baso # (Auto) Lymphocytes % (Manual) Monocytes % (Manual) Eosinophils % (Manual) Basophils % (Manual) Seg Neutrophils # Seg Neutrophils # Man Lymphocytes # (Manual) Monocytes # (Manual) Eosinophils # (Manual) Nucleated RBC % Basophils # (Manual) PT INR APTT Heparin Anti-Xa Level ABG pH POC ABG pO2 ABG pO2 ABG HCO3 ABG O2 Saturation ABG Base Excess POC ABG pCO2 ABG Hemoglobin ABG Oxyhemoglobin ABG Chloride ABG Glucose Oxyhemoglobin Sodium Potassium Chloride Carbon Dioxide BUN Creatinine Glucose POC Glucose 165 H 177 H Lactic Acid Calcium Phosphorus Magnesium AST ALT Lactate Dehydrogenase Total Bilirubin Direct Bilirubin CK-MB (CK-2) C-Reactive Protein NT-Pro-B Natriuret Pep Total Protein Albumin Arterial Blood Glucose Urine WBC (Auto) Urine Creatinine 01/24/20 01/24/20 01/24/20 04:30 07:18 12:06 WBC RBC Hgb Hct MCHC RDW MCV MCH Lymph % (Auto) [place] % (Auto) [place] # Eos # Lymph # (Auto) [place] # (Auto) Eos # (Auto) Seg Neutrophils % Seg Neuts % (Manual) Baso # (Auto) Lymphocytes % (Manual) Monocytes % (Manual) Eosinophils % (Manual) Basophils % (Manual) Seg Neutrophils # Seg Neutrophils # Man Lymphocytes # (Manual) Monocytes # (Manual) Eosinophils # (Manual) Nucleated RBC % Basophils # (Manual) PT INR APTT Heparin Anti-Xa Level ABG pH POC ABG pO2 ABG pO2 ABG HCO3 ABG O2 Saturation ABG Base Excess POC ABG pCO2 ABG Hemoglobin ABG Oxyhemoglobin ABG Chloride ABG Glucose Oxyhemoglobin Sodium Potassium Chloride 97.9 L Carbon Dioxide BUN 31 H Creatinine Glucose 146 H POC Glucose 151 H 133 H Lactic Acid Calcium Phosphorus Magnesium AST ALT Lactate Dehydrogenase Total Bilirubin Direct Bilirubin CK-MB (CK-2) C-Reactive Protein NT-Pro-B Natriuret Pep Total Protein Albumin Arterial Blood Glucose Urine WBC (Auto) Urine Creatinine 01/24/20 01/25/20 01/25/20 17:36 00:08 04:25 WBC RBC 3.50 L Hgb 8.7 L Hct 27.9 L MCHC 31 L RDW 18.2 H MCV 80 L MCH 25 L Lymph % (Auto) [place] % (Auto) 8.5 H [place] # Eos # Lymph # (Auto) [place] # (Auto) Eos # (Auto) Seg Neutrophils % Seg Neuts % (Manual) Baso # (Auto) Lymphocytes % (Manual) Monocytes % (Manual) Eosinophils % (Manual) Basophils % (Manual) Seg Neutrophils # Seg Neutrophils # Man Lymphocytes # (Manual) Monocytes # (Manual) Eosinophils # (Manual) Nucleated RBC % Basophils # (Manual) PT INR APTT Heparin Anti-Xa Level ABG pH POC ABG pO2 ABG pO2 ABG HCO3 ABG O2 Saturation ABG Base Excess POC ABG pCO2 ABG Hemoglobin ABG Oxyhemoglobin ABG Chloride ABG Glucose Oxyhemoglobin Sodium Potassium Chloride Carbon Dioxide BUN Creatinine Glucose POC Glucose 133 H 129 H Lactic Acid Calcium Phosphorus Magnesium AST ALT Lactate Dehydrogenase Total Bilirubin Direct Bilirubin CK-MB (CK-2) C-Reactive Protein NT-Pro-B Natriuret Pep Total Protein Albumin Arterial Blood Glucose Urine WBC (Auto) Urine Creatinine 01/25/20 01/25/20 01/25/20 04:25 05:38 11:52 WBC RBC Hgb Hct MCHC RDW MCV MCH Lymph % (Auto) [place] % (Auto) [place] # Eos # Lymph # (Auto) [place] # (Auto) Eos # (Auto) Seg Neutrophils % Seg Neuts % (Manual) Baso # (Auto) Lymphocytes % (Manual) Monocytes % (Manual) Eosinophils % (Manual) Basophils % (Manual) Seg Neutrophils # Seg Neutrophils # Man Lymphocytes # (Manual) Monocytes # (Manual) Eosinophils # (Manual) Nucleated RBC % Basophils # (Manual) PT INR APTT Heparin Anti-Xa Level ABG pH POC ABG pO2 ABG pO2 ABG HCO3 ABG O2 Saturation ABG Base Excess POC ABG pCO2 ABG Hemoglobin ABG Oxyhemoglobin ABG Chloride ABG Glucose Oxyhemoglobin Sodium Potassium Chloride Carbon Dioxide BUN 30 H Creatinine Glucose 134 H POC Glucose 129 H 134 H Lactic Acid Calcium Phosphorus Magnesium AST ALT Lactate Dehydrogenase Total Bilirubin Direct Bilirubin CK-MB (CK-2) C-Reactive Protein NT-Pro-B Natriuret Pep Total Protein Albumin Arterial Blood Glucose Urine WBC (Auto) Urine Creatinine 01/25/20 01/25/20 01/26/20 17:13 21:02 00:59 WBC RBC Hgb Hct MCHC RDW MCV MCH Lymph % (Auto) [place] % (Auto) [place] # Eos # Lymph # (Auto) [place] # (Auto) Eos # (Auto) Seg Neutrophils % Seg Neuts % (Manual) Baso # (Auto) Lymphocytes % (Manual) Monocytes % (Manual) Eosinophils % (Manual) Basophils % (Manual) Seg Neutrophils # Seg Neutrophils # Man Lymphocytes # (Manual) Monocytes # (Manual) Eosinophils # (Manual) Nucleated RBC % Basophils # (Manual) PT INR APTT Heparin Anti-Xa Level ABG pH POC ABG pO2 ABG pO2 57.5 L ABG HCO3 31.7 H ABG O2 Saturation 90.3 L ABG Base Excess 6.6 H POC ABG pCO2 ABG Hemoglobin 13.0 L ABG Oxyhemoglobin ABG Chloride ABG Glucose Oxyhemoglobin 87.5 L Sodium Potassium Chloride Carbon Dioxide BUN Creatinine Glucose POC Glucose 124 H 196 H Lactic Acid Calcium Phosphorus Magnesium AST ALT Lactate Dehydrogenase Total Bilirubin Direct Bilirubin CK-MB (CK-2) C-Reactive Protein NT-Pro-B Natriuret Pep Total Protein Albumin Arterial Blood Glucose Urine WBC (Auto) Urine Creatinine 01/26/20 01/26/20 01/26/20 03:20 05:46 12:46 WBC RBC Hgb 9.2 L Hct 29.4 L MCHC RDW MCV MCH Lymph % (Auto) [place] % (Auto) [place] # Eos # Lymph # (Auto) [place] # (Auto) Eos # (Auto) Seg Neutrophils % Seg Neuts % (Manual) Baso # (Auto) Lymphocytes % (Manual) Monocytes % (Manual) Eosinophils % (Manual) Basophils % (Manual) Seg Neutrophils # Seg Neutrophils # Man Lymphocytes # (Manual) Monocytes # (Manual) Eosinophils # (Manual) Nucleated RBC % Basophils # (Manual) PT INR APTT Heparin Anti-Xa Level ABG pH POC ABG pO2 ABG pO2 ABG HCO3 ABG O2 Saturation ABG Base Excess POC ABG pCO2 ABG Hemoglobin ABG Oxyhemoglobin ABG Chloride ABG Glucose Oxyhemoglobin Sodium Potassium Chloride Carbon Dioxide BUN Creatinine Glucose POC Glucose 141 H 122 H Lactic Acid Calcium Phosphorus Magnesium AST ALT Lactate Dehydrogenase Total Bilirubin Direct Bilirubin CK-MB (CK-2) C-Reactive Protein NT-Pro-B Natriuret Pep Total Protein Albumin Arterial Blood Glucose Urine WBC (Auto) Urine Creatinine 01/26/20 01/26/20 01/27/20 18:03 23:55 04:47 WBC RBC Hgb Hct MCHC RDW MCV MCH Lymph % (Auto) [place] % (Auto) [place] # Eos # Lymph # (Auto) [place] # (Auto) Eos # (Auto) Seg Neutrophils % Seg Neuts % (Manual) Baso # (Auto) Lymphocytes % (Manual) Monocytes % (Manual) Eosinophils % (Manual) Basophils % (Manual) Seg Neutrophils # Seg Neutrophils # Man Lymphocytes # (Manual) Monocytes # (Manual) Eosinophils # (Manual) Nucleated RBC % Basophils # (Manual) PT INR APTT Heparin Anti-Xa Level ABG pH POC ABG pO2 ABG pO2 ABG HCO3 ABG O2 Saturation ABG Base Excess POC ABG pCO2 ABG Hemoglobin ABG Oxyhemoglobin ABG Chloride ABG Glucose Oxyhemoglobin Sodium Potassium Chloride Carbon Dioxide BUN 30 H Creatinine 0.7 L Glucose 135 H POC Glucose 142 H 159 H Lactic Acid Calcium Phosphorus Magnesium AST ALT Lactate Dehydrogenase Total Bilirubin Direct Bilirubin CK-MB (CK-2) C-Reactive Protein NT-Pro-B Natriuret Pep Total Protein Albumin Arterial Blood Glucose Urine WBC (Auto) Urine Creatinine 01/27/20 01/27/20 01/27/20 05:43 12:06 17:16 WBC RBC Hgb Hct MCHC RDW MCV MCH Lymph % (Auto) [place] % (Auto) [place] # Eos # Lymph # (Auto) [place] # (Auto) Eos # (Auto) Seg Neutrophils % Seg Neuts % (Manual) Baso # (Auto) Lymphocytes % (Manual) Monocytes % (Manual) Eosinophils % (Manual) Basophils % (Manual) Seg Neutrophils # Seg Neutrophils # Man Lymphocytes # (Manual) Monocytes # (Manual) Eosinophils # (Manual) Nucleated RBC % Basophils # (Manual) PT INR APTT Heparin Anti-Xa Level ABG pH POC ABG pO2 ABG pO2 ABG HCO3 ABG O2 Saturation ABG Base Excess POC ABG pCO2 ABG Hemoglobin ABG Oxyhemoglobin ABG Chloride ABG Glucose Oxyhemoglobin Sodium Potassium Chloride Carbon Dioxide BUN Creatinine Glucose POC Glucose 143 H 142 H 128 H Lactic Acid Calcium Phosphorus Magnesium AST ALT Lactate Dehydrogenase Total Bilirubin Direct Bilirubin CK-MB (CK-2) C-Reactive Protein NT-Pro-B Natriuret Pep Total Protein Albumin Arterial Blood Glucose Urine WBC (Auto) Urine Creatinine 01/27/20 01/28/20 01/28/20 23:55 04:37 05:55 WBC RBC Hgb 9.4 L Hct 29.9 L MCHC RDW MCV MCH Lymph % (Auto) [place] % (Auto) [place] # Eos # Lymph # (Auto) [place] # (Auto) Eos # (Auto) Seg Neutrophils % Seg Neuts % (Manual) Baso # (Auto) Lymphocytes % (Manual) Monocytes % (Manual) Eosinophils % (Manual) Basophils % (Manual) Seg Neutrophils # Seg Neutrophils # Man Lymphocytes # (Manual) Monocytes # (Manual) Eosinophils # (Manual) Nucleated RBC % Basophils # (Manual) PT INR APTT Heparin Anti-Xa Level ABG pH POC ABG pO2 ABG pO2 ABG HCO3 ABG O2 Saturation ABG Base Excess POC ABG pCO2 ABG Hemoglobin ABG Oxyhemoglobin ABG Chloride ABG Glucose Oxyhemoglobin Sodium Potassium Chloride Carbon Dioxide BUN Creatinine Glucose POC Glucose 166 H 169 H Lactic Acid Calcium Phosphorus Magnesium AST ALT Lactate Dehydrogenase Total Bilirubin Direct Bilirubin CK-MB (CK-2) C-Reactive Protein NT-Pro-B Natriuret Pep Total Protein Albumin Arterial Blood Glucose Urine WBC (Auto) Urine Creatinine 01/28/20 01/28/20 01/28/20 11:58 17:26 23:46 WBC RBC Hgb Hct MCHC RDW MCV MCH Lymph % (Auto) [place] % (Auto) [place] # Eos # Lymph # (Auto) [place] # (Auto) Eos # (Auto) Seg Neutrophils % Seg Neuts % (Manual) Baso # (Auto) Lymphocytes % (Manual) Monocytes % (Manual) Eosinophils % (Manual) Basophils % (Manual) Seg Neutrophils # Seg Neutrophils # Man Lymphocytes # (Manual) Monocytes # (Manual) Eosinophils # (Manual) Nucleated RBC % Basophils # (Manual) PT INR APTT Heparin Anti-Xa Level ABG pH POC ABG pO2 ABG pO2 ABG HCO3 ABG O2 Saturation ABG Base Excess POC ABG pCO2 ABG Hemoglobin ABG Oxyhemoglobin ABG Chloride ABG Glucose Oxyhemoglobin Sodium Potassium Chloride Carbon Dioxide BUN Creatinine Glucose POC Glucose 130 H 126 H 150 H Lactic Acid Calcium Phosphorus Magnesium AST ALT Lactate Dehydrogenase Total Bilirubin Direct Bilirubin CK-MB (CK-2) C-Reactive Protein NT-Pro-B Natriuret Pep Total Protein Albumin Arterial Blood Glucose Urine WBC (Auto) Urine Creatinine 01/29/20 01/29/20 01/29/20 04:55 06:00 12:28 WBC RBC Hgb Hct MCHC RDW MCV MCH Lymph % (Auto) [place] % (Auto) [place] # Eos # Lymph # (Auto) [place] # (Auto) Eos # (Auto) Seg Neutrophils % Seg Neuts % (Manual) Baso # (Auto) Lymphocytes % (Manual) Monocytes % (Manual) Eosinophils % (Manual) Basophils % (Manual) Seg Neutrophils # Seg Neutrophils # Man Lymphocytes # (Manual) Monocytes # (Manual) Eosinophils # (Manual) Nucleated RBC % Basophils # (Manual) PT INR APTT Heparin Anti-Xa Level ABG pH POC ABG pO2 ABG pO2 ABG HCO3 ABG O2 Saturation ABG Base Excess POC ABG pCO2 ABG Hemoglobin ABG Oxyhemoglobin ABG Chloride ABG Glucose Oxyhemoglobin Sodium Potassium Chloride Carbon Dioxide 34 H BUN Creatinine 0.6 L Glucose 152 H POC Glucose 157 H 156 H Lactic Acid Calcium Phosphorus Magnesium AST ALT Lactate Dehydrogenase Total Bilirubin Direct Bilirubin CK-MB (CK-2) C-Reactive Protein NT-Pro-B Natriuret Pep Total Protein Albumin Arterial Blood Glucose Urine WBC (Auto) Urine Creatinine 01/29/20 01/30/20 01/30/20 19:06 00:29 05:39 WBC RBC Hgb Hct MCHC RDW MCV MCH Lymph % (Auto) [place] % (Auto) [place] # Eos # Lymph # (Auto) [place] # (Auto) Eos # (Auto) Seg Neutrophils % Seg Neuts % (Manual) Baso # (Auto) Lymphocytes % (Manual) Monocytes % (Manual) Eosinophils % (Manual) Basophils % (Manual) Seg Neutrophils # Seg Neutrophils # Man Lymphocytes # (Manual) Monocytes # (Manual) Eosinophils # (Manual) Nucleated RBC % Basophils # (Manual) PT INR APTT Heparin Anti-Xa Level ABG pH POC ABG pO2 ABG pO2 ABG HCO3 ABG O2 Saturation ABG Base Excess POC ABG pCO2 ABG Hemoglobin ABG Oxyhemoglobin ABG Chloride ABG Glucose Oxyhemoglobin Sodium Potassium Chloride Carbon Dioxide BUN Creatinine Glucose POC Glucose 152 H 132 H 159 H Lactic Acid Calcium Phosphorus Magnesium AST ALT Lactate Dehydrogenase Total Bilirubin Direct Bilirubin CK-MB (CK-2) C-Reactive Protein NT-Pro-B Natriuret Pep Total Protein Albumin Arterial Blood Glucose Urine WBC (Auto) Urine Creatinine 01/30/20 01/30/20 01/30/20 12:27 17:42 23:28 WBC RBC Hgb Hct MCHC RDW MCV MCH Lymph % (Auto) [place] % (Auto) [place] # Eos # Lymph # (Auto) [place] # (Auto) Eos # (Auto) Seg Neutrophils % Seg Neuts % (Manual) Baso # (Auto) Lymphocytes % (Manual) Monocytes % (Manual) Eosinophils % (Manual) Basophils % (Manual) Seg Neutrophils # Seg Neutrophils # Man Lymphocytes # (Manual) Monocytes # (Manual) Eosinophils # (Manual) Nucleated RBC % Basophils # (Manual) PT INR APTT Heparin Anti-Xa Level ABG pH POC ABG pO2 ABG pO2 ABG HCO3 ABG O2 Saturation ABG Base Excess POC ABG pCO2 ABG Hemoglobin ABG Oxyhemoglobin ABG Chloride ABG Glucose Oxyhemoglobin Sodium Potassium Chloride Carbon Dioxide BUN Creatinine Glucose POC Glucose 151 H 144 H 164 H Lactic Acid Calcium Phosphorus Magnesium AST ALT Lactate Dehydrogenase Total Bilirubin Direct Bilirubin CK-MB (CK-2) C-Reactive Protein NT-Pro-B Natriuret Pep Total Protein Albumin Arterial Blood Glucose Urine WBC (Auto) Urine Creatinine 01/31/20 01/31/20 01/31/20 05:51 11:51 18:06 WBC RBC Hgb Hct MCHC RDW MCV MCH Lymph % (Auto) [place] % (Auto) [place] # Eos # Lymph # (Auto) [place] # (Auto) Eos # (Auto) Seg Neutrophils % Seg Neuts % (Manual) Baso # (Auto) Lymphocytes % (Manual) Monocytes % (Manual) Eosinophils % (Manual) Basophils % (Manual) Seg Neutrophils # Seg Neutrophils # Man Lymphocytes # (Manual) Monocytes # (Manual) Eosinophils # (Manual) Nucleated RBC % Basophils # (Manual) PT INR APTT Heparin Anti-Xa Level ABG pH POC ABG pO2 ABG pO2 ABG HCO3 ABG O2 Saturation ABG Base Excess POC ABG pCO2 ABG Hemoglobin ABG Oxyhemoglobin ABG Chloride ABG Glucose Oxyhemoglobin Sodium Potassium Chloride Carbon Dioxide BUN Creatinine Glucose POC Glucose 131 H 167 H 210 H Lactic Acid Calcium Phosphorus Magnesium AST ALT Lactate Dehydrogenase Total Bilirubin Direct Bilirubin CK-MB (CK-2) C-Reactive Protein NT-Pro-B Natriuret Pep Total Protein Albumin Arterial Blood Glucose Urine WBC (Auto) Urine Creatinine 01/31/20 01/31/20 02/01/20 19:24 Unknown 00:34 WBC RBC Hgb Hct MCHC RDW MCV MCH Lymph % (Auto) [place] % (Auto) [place] # Eos # Lymph # (Auto) [place] # (Auto) Eos # (Auto) Seg Neutrophils % Seg Neuts % (Manual) Baso # (Auto) Lymphocytes % (Manual) Monocytes % (Manual) Eosinophils % (Manual) Basophils % (Manual) Seg Neutrophils # Seg Neutrophils # Man Lymphocytes # (Manual) Monocytes # (Manual) Eosinophils # (Manual) Nucleated RBC % Basophils # (Manual) PT INR APTT Heparin Anti-Xa Level ABG pH POC ABG pO2 ABG pO2 ABG HCO3 ABG O2 Saturation ABG Base Excess POC ABG pCO2 ABG Hemoglobin ABG Oxyhemoglobin ABG Chloride ABG Glucose Oxyhemoglobin Sodium Potassium Chloride 95.3 L Carbon Dioxide 33 H BUN 36 H Creatinine Glucose 187 H POC Glucose 116 H Lactic Acid Calcium Phosphorus Magnesium AST ALT Lactate Dehydrogenase Total Bilirubin Direct Bilirubin CK-MB (CK-2) C-Reactive Protein NT-Pro-B Natriuret Pep Total Protein Albumin Arterial Blood Glucose Urine WBC (Auto) Urine Creatinine 57.4 H 02/01/20 02/01/20 02/01/20 05:24 10:40 12:29 WBC RBC Hgb Hct MCHC RDW MCV MCH Lymph % (Auto) [place] % (Auto) [place] # Eos # Lymph # (Auto) [place] # (Auto) Eos # (Auto) Seg Neutrophils % Seg Neuts % (Manual) Baso # (Auto) Lymphocytes % (Manual) Monocytes % (Manual) Eosinophils % (Manual) Basophils % (Manual) Seg Neutrophils # Seg Neutrophils # Man Lymphocytes # (Manual) Monocytes # (Manual) Eosinophils # (Manual) Nucleated RBC % Basophils # (Manual) PT INR APTT Heparin Anti-Xa Level ABG pH POC ABG pO2 ABG pO2 ABG HCO3 ABG O2 Saturation ABG Base Excess POC ABG pCO2 ABG Hemoglobin ABG Oxyhemoglobin ABG Chloride ABG Glucose Oxyhemoglobin Sodium Potassium Chloride Carbon Dioxide BUN Creatinine Glucose POC Glucose 142 H 165 H 151 H Lactic Acid Calcium Phosphorus Magnesium AST ALT Lactate Dehydrogenase Total Bilirubin Direct Bilirubin CK-MB (CK-2) C-Reactive Protein NT-Pro-B Natriuret Pep Total Protein Albumin Arterial Blood Glucose Urine WBC (Auto) Urine Creatinine 02/01/20 02/01/20 02/02/20 17:16 23:23 06:36 WBC RBC Hgb Hct MCHC RDW MCV MCH Lymph % (Auto) [place] % (Auto) [place] # Eos # Lymph # (Auto) [place] # (Auto) Eos # (Auto) Seg Neutrophils % Seg Neuts % (Manual) Baso # (Auto) Lymphocytes % (Manual) Monocytes % (Manual) Eosinophils % (Manual) Basophils % (Manual) Seg Neutrophils # Seg Neutrophils # Man Lymphocytes # (Manual) Monocytes # (Manual) Eosinophils # (Manual) Nucleated RBC % Basophils # (Manual) PT INR APTT Heparin Anti-Xa Level ABG pH POC ABG pO2 ABG pO2 ABG HCO3 ABG O2 Saturation ABG Base Excess POC ABG pCO2 ABG Hemoglobin ABG Oxyhemoglobin ABG Chloride ABG Glucose Oxyhemoglobin Sodium Potassium Chloride Carbon Dioxide BUN Creatinine Glucose POC Glucose 137 H 145 H 181 H Lactic Acid Calcium Phosphorus Magnesium AST ALT Lactate Dehydrogenase Total Bilirubin Direct Bilirubin CK-MB (CK-2) C-Reactive Protein NT-Pro-B Natriuret Pep Total Protein Albumin Arterial Blood Glucose Urine WBC (Auto) Urine Creatinine 02/02/20 02/02/20 02/02/20 10:01 12:05 17:54 WBC RBC Hgb Hct MCHC RDW MCV MCH Lymph % (Auto) [place] % (Auto) [place] # Eos # Lymph # (Auto) [place] # (Auto) Eos # (Auto) Seg Neutrophils % Seg Neuts % (Manual) Baso # (Auto) Lymphocytes % (Manual) Monocytes % (Manual) Eosinophils % (Manual) Basophils % (Manual) Seg Neutrophils # Seg Neutrophils # Man Lymphocytes # (Manual) Monocytes # (Manual) Eosinophils # (Manual) Nucleated RBC % Basophils # (Manual) PT INR APTT Heparin Anti-Xa Level ABG pH POC ABG pO2 ABG pO2 ABG HCO3 ABG O2 Saturation ABG Base Excess POC ABG pCO2 ABG Hemoglobin ABG Oxyhemoglobin ABG Chloride ABG Glucose Oxyhemoglobin Sodium Potassium Chloride 95.3 L Carbon Dioxide BUN 44 H Creatinine Glucose 234 H POC Glucose 184 H 127 H Lactic Acid Calcium Phosphorus Magnesium AST 363 H ALT 457 H Lactate Dehydrogenase Total Bilirubin Direct Bilirubin CK-MB (CK-2) C-Reactive Protein NT-Pro-B Natriuret Pep Total Protein Albumin 3.0 L Arterial Blood Glucose Urine WBC (Auto) Urine Creatinine 02/02/20 02/03/20 02/03/20 23:47 05:32 07:04 WBC 13.0 H RBC Hgb 9.5 L Hct 30.8 L MCHC 31 L RDW 19.6 H MCV 81 L MCH 25 L Lymph % (Auto) [place] % (Auto) 9.4 H [place] # Eos # Lymph # (Auto) [place] # (Auto) 1.2 H Eos # (Auto) Seg Neutrophils % 72.3 H Seg Neuts % (Manual) Baso # (Auto) Lymphocytes % (Manual) Monocytes % (Manual) Eosinophils % (Manual) Basophils % (Manual) Seg Neutrophils # 9.4 H Seg Neutrophils # Man Lymphocytes # (Manual) Monocytes # (Manual) Eosinophils # (Manual) Nucleated RBC % Basophils # (Manual) PT INR APTT Heparin Anti-Xa Level ABG pH POC ABG pO2 ABG pO2 ABG HCO3 ABG O2 Saturation ABG Base Excess POC ABG pCO2 ABG Hemoglobin ABG Oxyhemoglobin ABG Chloride ABG Glucose Oxyhemoglobin Sodium Potassium Chloride Carbon Dioxide BUN Creatinine Glucose POC Glucose 124 H 129 H Lactic Acid Calcium Phosphorus Magnesium AST ALT Lactate Dehydrogenase Total Bilirubin Direct Bilirubin CK-MB (CK-2) C-Reactive Protein NT-Pro-B Natriuret Pep Total Protein Albumin Arterial Blood Glucose Urine WBC (Auto) Urine Creatinine 02/03/20 02/03/20 02/03/20 07:04 11:32 12:49 WBC RBC Hgb Hct MCHC RDW MCV MCH Lymph % (Auto) [place] % (Auto) [place] # Eos # Lymph # (Auto) [place] # (Auto) Eos # (Auto) Seg Neutrophils % Seg Neuts % (Manual) Baso # (Auto) Lymphocytes % (Manual) Monocytes % (Manual) Eosinophils % (Manual) Basophils % (Manual) Seg Neutrophils # Seg Neutrophils # Man Lymphocytes # (Manual) Monocytes # (Manual) Eosinophils # (Manual) Nucleated RBC % Basophils # (Manual) PT INR APTT Heparin Anti-Xa Level ABG pH POC ABG pO2 ABG pO2 ABG HCO3 ABG O2 Saturation ABG Base Excess POC ABG pCO2 ABG Hemoglobin ABG Oxyhemoglobin ABG Chloride ABG Glucose Oxyhemoglobin Sodium Potassium Chloride 97.9 L Carbon Dioxide 33 H BUN 39 H Creatinine Glucose 119 H POC Glucose 138 H Lactic Acid Calcium Phosphorus Magnesium 2.60 H AST ALT Lactate Dehydrogenase Total Bilirubin Direct Bilirubin CK-MB (CK-2) C-Reactive Protein NT-Pro-B Natriuret Pep Total Protein Albumin Arterial Blood Glucose Urine WBC (Auto) Urine Creatinine 02/03/20 02/04/20 02/04/20 18:28 16:24 16:24 WBC RBC 3.38 L Hgb 8.6 L Hct 26.9 L MCHC RDW 19.5 H MCV 80 L MCH 26 L Lymph % (Auto) [place] % (Auto) [place] # Eos # Lymph # (Auto) [place] # (Auto) Eos # (Auto) Seg Neutrophils % Seg Neuts % (Manual) Baso # (Auto) Lymphocytes % (Manual) Monocytes % (Manual) Eosinophils % (Manual) Basophils % (Manual) Seg Neutrophils # Seg Neutrophils # Man Lymphocytes # (Manual) Monocytes # (Manual) Eosinophils # (Manual) Nucleated RBC % Basophils # (Manual) PT INR APTT Heparin Anti-Xa Level ABG pH POC ABG pO2 ABG pO2 ABG HCO3 ABG O2 Saturation ABG Base Excess POC ABG pCO2 ABG Hemoglobin ABG Oxyhemoglobin ABG Chloride ABG Glucose Oxyhemoglobin Sodium Potassium 3.4 L Chloride Carbon Dioxide 31 H BUN 37 H Creatinine Glucose 70 L POC Glucose 118 H Lactic Acid Calcium Phosphorus Magnesium AST 169 H ALT 394 H Lactate Dehydrogenase Total Bilirubin 1.50 H Direct Bilirubin CK-MB (CK-2) C-Reactive Protein NT-Pro-B Natriuret Pep Total Protein Albumin 2.9 L Arterial Blood Glucose Urine WBC (Auto) Urine Creatinine 02/05/20 02/05/20 02/05/20 00:41 06:37 17:14 WBC RBC Hgb Hct MCHC RDW MCV MCH Lymph % (Auto) [place] % (Auto) [place] # Eos # Lymph # (Auto) [place] # (Auto) Eos # (Auto) Seg Neutrophils % Seg Neuts % (Manual) Baso # (Auto) Lymphocytes % (Manual) Monocytes % (Manual) Eosinophils % (Manual) Basophils % (Manual) Seg Neutrophils # Seg Neutrophils # Man Lymphocytes # (Manual) Monocytes # (Manual) Eosinophils # (Manual) Nucleated RBC % Basophils # (Manual) PT INR APTT Heparin Anti-Xa Level ABG pH POC ABG pO2 ABG pO2 ABG HCO3 ABG O2 Saturation ABG Base Excess POC ABG pCO2 ABG Hemoglobin ABG Oxyhemoglobin ABG Chloride ABG Glucose Oxyhemoglobin Sodium Potassium 3.1 L Chloride Carbon Dioxide 35 H BUN 32 H Creatinine 0.7 L Glucose POC Glucose 69 L 127 H Lactic Acid Calcium Phosphorus Magnesium AST 134 H ALT 352 H Lactate Dehydrogenase Total Bilirubin 1.60 H Direct Bilirubin CK-MB (CK-2) C-Reactive Protein NT-Pro-B Natriuret Pep Total Protein Albumin 2.9 L Arterial Blood Glucose Urine WBC (Auto) Urine Creatinine 02/05/20 02/06/20 02/06/20 23:43 05:32 08:01 WBC RBC Hgb Hct MCHC RDW MCV MCH Lymph % (Auto) [place] % (Auto) [place] # Eos # Lymph # (Auto) [place] # (Auto) Eos # (Auto) Seg Neutrophils % Seg Neuts % (Manual) Baso # (Auto) Lymphocytes % (Manual) Monocytes % (Manual) Eosinophils % (Manual) Basophils % (Manual) Seg Neutrophils # Seg Neutrophils # Man Lymphocytes # (Manual) Monocytes # (Manual) Eosinophils # (Manual) Nucleated RBC % Basophils # (Manual) PT INR APTT Heparin Anti-Xa Level ABG pH POC ABG pO2 ABG pO2 ABG HCO3 ABG O2 Saturation ABG Base Excess POC ABG pCO2 ABG Hemoglobin ABG Oxyhemoglobin ABG Chloride ABG Glucose Oxyhemoglobin Sodium Potassium Chloride Carbon Dioxide BUN 40 H Creatinine Glucose 132 H POC Glucose 129 H 131 H Lactic Acid Calcium Phosphorus Magnesium AST ALT Lactate Dehydrogenase Total Bilirubin Direct Bilirubin CK-MB (CK-2) C-Reactive Protein NT-Pro-B Natriuret Pep Total Protein Albumin Arterial Blood Glucose Urine WBC (Auto) Urine Creatinine 02/06/20 02/06/20 02/06/20 11:51 16:28 17:32 WBC RBC Hgb Hct MCHC RDW MCV MCH Lymph % (Auto) [place] % (Auto) [place] # Eos # Lymph # (Auto) [place] # (Auto) Eos # (Auto) Seg Neutrophils % Seg Neuts % (Manual) Baso # (Auto) Lymphocytes % (Manual) Monocytes % (Manual) Eosinophils % (Manual) Basophils % (Manual) Seg Neutrophils # Seg Neutrophils # Man Lymphocytes # (Manual) Monocytes # (Manual) Eosinophils # (Manual) Nucleated RBC % Basophils # (Manual) PT INR APTT Heparin Anti-Xa Level ABG pH POC ABG pO2 ABG pO2 ABG HCO3 ABG O2 Saturation ABG Base Excess POC ABG pCO2 ABG Hemoglobin ABG Oxyhemoglobin ABG Chloride ABG Glucose Oxyhemoglobin Sodium Potassium Chloride Carbon Dioxide BUN Creatinine Glucose POC Glucose 167 H 129 H Lactic Acid Calcium Phosphorus Magnesium AST 824 H ALT 948 H Lactate Dehydrogenase Total Bilirubin 1.70 H Direct Bilirubin 1.2 H CK-MB (CK-2) C-Reactive Protein NT-Pro-B Natriuret Pep Total Protein Albumin 2.9 L Arterial Blood Glucose Urine WBC (Auto) Urine Creatinine 02/07/20 02/07/20 02/07/20 00:11 04:57 04:57 WBC RBC Hgb 9.2 L Hct 29.7 L MCHC 31 L RDW 20.2 H MCV 80 L MCH 25 L Lymph % (Auto) [place] % (Auto) [place] # Eos # Lymph # (Auto) [place] # (Auto) Eos # (Auto) Seg Neutrophils % Seg Neuts % (Manual) Baso # (Auto) Lymphocytes % (Manual) Monocytes % (Manual) Eosinophils % (Manual) Basophils % (Manual) Seg Neutrophils # Seg Neutrophils # Man Lymphocytes # (Manual) Monocytes # (Manual) Eosinophils # (Manual) Nucleated RBC % Basophils # (Manual) PT INR APTT Heparin Anti-Xa Level ABG pH POC ABG pO2 ABG pO2 ABG HCO3 ABG O2 Saturation ABG Base Excess POC ABG pCO2 ABG Hemoglobin ABG Oxyhemoglobin ABG Chloride ABG Glucose Oxyhemoglobin Sodium Potassium 3.4 L D Chloride Carbon Dioxide 32 H BUN 39 H Creatinine Glucose 106 H POC Glucose 121 H Lactic Acid Calcium Phosphorus Magnesium AST ALT Lactate Dehydrogenase Total Bilirubin Direct Bilirubin CK-MB (CK-2) C-Reactive Protein NT-Pro-B Natriuret Pep Total Protein Albumin Arterial Blood Glucose Urine WBC (Auto) Urine Creatinine 02/07/20 02/07/20 02/07/20 15:03 15:03 17:11 WBC RBC Hgb Hct MCHC RDW MCV MCH Lymph % (Auto) [place] % (Auto) [place] # Eos # Lymph # (Auto) [place] # (Auto) Eos # (Auto) Seg Neutrophils % Seg Neuts % (Manual) Baso # (Auto) Lymphocytes % (Manual) Monocytes % (Manual) Eosinophils % (Manual) Basophils % (Manual) Seg Neutrophils # Seg Neutrophils # Man Lymphocytes # (Manual) Monocytes # (Manual) Eosinophils # (Manual) Nucleated RBC % Basophils # (Manual) PT 27.0 H INR 2.46 H APTT Heparin Anti-Xa Level ABG pH POC ABG pO2 ABG pO2 ABG HCO3 ABG O2 Saturation ABG Base Excess POC ABG pCO2 ABG Hemoglobin ABG Oxyhemoglobin ABG Chloride ABG Glucose Oxyhemoglobin Sodium Potassium Chloride Carbon Dioxide BUN Creatinine Glucose POC Glucose 109 H Lactic Acid Calcium Phosphorus Magnesium AST 424 H ALT 796 H Lactate Dehydrogenase Total Bilirubin 1.60 H Direct Bilirubin 1.2 H CK-MB (CK-2) C-Reactive Protein NT-Pro-B Natriuret Pep Total Protein Albumin 2.9 L Arterial Blood Glucose Urine WBC (Auto) Urine Creatinine 02/08/20 02/08/20 02/08/20 12:14 17:44 19:00 WBC RBC Hgb Hct MCHC RDW MCV MCH Lymph % (Auto) [place] % (Auto) [place] # Eos # Lymph # (Auto) [place] # (Auto) Eos # (Auto) Seg Neutrophils % Seg Neuts % (Manual) Baso # (Auto) Lymphocytes % (Manual) Monocytes % (Manual) Eosinophils % (Manual) Basophils % (Manual) Seg Neutrophils # Seg Neutrophils # Man Lymphocytes # (Manual) Monocytes # (Manual) Eosinophils # (Manual) Nucleated RBC % Basophils # (Manual) PT INR APTT Heparin Anti-Xa Level ABG pH POC ABG pO2 ABG pO2 ABG HCO3 ABG O2 Saturation ABG Base Excess POC ABG pCO2 ABG Hemoglobin ABG Oxyhemoglobin ABG Chloride ABG Glucose Oxyhemoglobin Sodium Potassium Chloride Carbon Dioxide BUN Creatinine Glucose POC Glucose 111 H 107 H Lactic Acid Calcium Phosphorus Magnesium AST 309 H ALT 650 H Lactate Dehydrogenase Total Bilirubin 1.30 H Direct Bilirubin 0.9 H CK-MB (CK-2) C-Reactive Protein NT-Pro-B Natriuret Pep Total Protein 6.2 L Albumin 2.7 L Arterial Blood Glucose Urine WBC (Auto) Urine Creatinine 02/09/20 02/09/20 02/09/20 05:41 12:28 18:07 WBC RBC Hgb Hct MCHC RDW MCV MCH Lymph % (Auto) [place] % (Auto) [place] # Eos # Lymph # (Auto) [place] # (Auto) Eos # (Auto) Seg Neutrophils % Seg Neuts % (Manual) Baso # (Auto) Lymphocytes % (Manual) Monocytes % (Manual) Eosinophils % (Manual) Basophils % (Manual) Seg Neutrophils # Seg Neutrophils # Man Lymphocytes # (Manual) Monocytes # (Manual) Eosinophils # (Manual) Nucleated RBC % Basophils # (Manual) PT INR APTT Heparin Anti-Xa Level ABG pH POC ABG pO2 ABG pO2 ABG HCO3 ABG O2 Saturation ABG Base Excess POC ABG pCO2 ABG Hemoglobin ABG Oxyhemoglobin ABG Chloride ABG Glucose Oxyhemoglobin Sodium Potassium Chloride Carbon Dioxide BUN Creatinine Glucose POC Glucose 113 H 140 H 143 H Lactic Acid Calcium Phosphorus Magnesium AST ALT Lactate Dehydrogenase Total Bilirubin Direct Bilirubin CK-MB (CK-2) C-Reactive Protein NT-Pro-B Natriuret Pep Total Protein Albumin Arterial Blood Glucose Urine WBC (Auto) Urine Creatinine 02/09/20 02/09/20 02/10/20 21:40 23:45 06:00 WBC RBC Hgb Hct MCHC RDW MCV MCH Lymph % (Auto) [place] % (Auto) [place] # Eos # Lymph # (Auto) [place] # (Auto) Eos # (Auto) Seg Neutrophils % Seg Neuts % (Manual) Baso # (Auto) Lymphocytes % (Manual) Monocytes % (Manual) Eosinophils % (Manual) Basophils % (Manual) Seg Neutrophils # Seg Neutrophils # Man Lymphocytes # (Manual) Monocytes # (Manual) Eosinophils # (Manual) Nucleated RBC % Basophils # (Manual) PT INR APTT Heparin Anti-Xa Level ABG pH POC ABG pO2 ABG pO2 59.8 L ABG HCO3 33.3 H ABG O2 Saturation 88.9 L ABG Base Excess 7.4 H POC ABG pCO2 ABG Hemoglobin 10.4 L ABG Oxyhemoglobin ABG Chloride ABG Glucose Oxyhemoglobin 86.3 L Sodium Potassium Chloride Carbon Dioxide BUN Creatinine Glucose POC Glucose 127 H 114 H Lactic Acid Calcium Phosphorus Magnesium AST ALT Lactate Dehydrogenase Total Bilirubin Direct Bilirubin CK-MB (CK-2) C-Reactive Protein NT-Pro-B Natriuret Pep Total Protein Albumin Arterial Blood Glucose Urine WBC (Auto) Urine Creatinine 02/10/20 02/10/20 02/10/20 07:40 07:40 13:38 WBC 11.5 H RBC Hgb 10.6 L Hct 34.7 L MCHC 31 L RDW 19.8 H MCV 79 L MCH 24 L Lymph % (Auto) [place] % (Auto) 9.2 H [place] # Eos # Lymph # (Auto) [place] # (Auto) 1.1 H Eos # (Auto) Seg Neutrophils % Seg Neuts % (Manual) Baso # (Auto) Lymphocytes % (Manual) Monocytes % (Manual) Eosinophils % (Manual) Basophils % (Manual) Seg Neutrophils # Seg Neutrophils # Man Lymphocytes # (Manual) Monocytes # (Manual) Eosinophils # (Manual) Nucleated RBC % Basophils # (Manual) PT INR APTT Heparin Anti-Xa Level ABG pH POC ABG pO2 ABG pO2 ABG HCO3 ABG O2 Saturation ABG Base Excess POC ABG pCO2 ABG Hemoglobin ABG Oxyhemoglobin ABG Chloride ABG Glucose Oxyhemoglobin Sodium 151 H Potassium Chloride 107.2 H Carbon Dioxide 36 H BUN 25 H Creatinine 0.7 L Glucose 114 H POC Glucose 116 H Lactic Acid Calcium Phosphorus Magnesium 2.40 H AST ALT Lactate Dehydrogenase Total Bilirubin Direct Bilirubin CK-MB (CK-2) C-Reactive Protein NT-Pro-B Natriuret Pep Total Protein Albumin Arterial Blood Glucose Urine WBC (Auto) Urine Creatinine 02/10/20 02/11/20 02/11/20 17:44 05:47 12:21 WBC RBC Hgb Hct MCHC RDW MCV MCH Lymph % (Auto) [place] % (Auto) [place] # Eos # Lymph # (Auto) [place] # (Auto) Eos # (Auto) Seg Neutrophils % Seg Neuts % (Manual) Baso # (Auto) Lymphocytes % (Manual) Monocytes % (Manual) Eosinophils % (Manual) Basophils % (Manual) Seg Neutrophils # Seg Neutrophils # Man Lymphocytes # (Manual) Monocytes # (Manual) Eosinophils # (Manual) Nucleated RBC % Basophils # (Manual) PT INR APTT Heparin Anti-Xa Level ABG pH POC ABG pO2 ABG pO2 ABG HCO3 ABG O2 Saturation ABG Base Excess POC ABG pCO2 ABG Hemoglobin ABG Oxyhemoglobin ABG Chloride ABG Glucose Oxyhemoglobin Sodium Potassium Chloride Carbon Dioxide BUN Creatinine Glucose POC Glucose 139 H 173 H 143 H Lactic Acid Calcium Phosphorus Magnesium AST ALT Lactate Dehydrogenase Total Bilirubin Direct Bilirubin CK-MB (CK-2) C-Reactive Protein NT-Pro-B Natriuret Pep Total Protein Albumin Arterial Blood Glucose Urine WBC (Auto) Urine Creatinine 02/11/20 02/11/20 02/12/20 13:43 14:11 00:15 WBC RBC Hgb Hct MCHC RDW MCV MCH Lymph % (Auto) [place] % (Auto) [place] # Eos # Lymph # (Auto) [place] # (Auto) Eos # (Auto) Seg Neutrophils % Seg Neuts % (Manual) Baso # (Auto) Lymphocytes % (Manual) Monocytes % (Manual) Eosinophils % (Manual) Basophils % (Manual) Seg Neutrophils # Seg Neutrophils # Man Lymphocytes # (Manual) Monocytes # (Manual) Eosinophils # (Manual) Nucleated RBC % Basophils # (Manual) PT INR APTT Heparin Anti-Xa Level ABG pH 7.502 H POC ABG pO2 77.7 L ABG pO2 ABG HCO3 ABG O2 Saturation ABG Base Excess POC ABG pCO2 ABG Hemoglobin 11.1 L ABG Oxyhemoglobin ABG Chloride 108.0 H ABG Glucose 151 H Oxyhemoglobin Sodium Potassium Chloride Carbon Dioxide BUN Creatinine Glucose POC Glucose 130 H 125 H Lactic Acid Calcium Phosphorus Magnesium AST ALT Lactate Dehydrogenase Total Bilirubin Direct Bilirubin CK-MB (CK-2) C-Reactive Protein NT-Pro-B Natriuret Pep Total Protein Albumin Arterial Blood Glucose 151 H Urine WBC (Auto) Urine Creatinine 02/12/20 02/12/20 02/12/20 04:56 04:56 17:42 WBC RBC Hgb 9.9 L Hct 31.8 L MCHC 31 L RDW 19.4 H MCV 79 L MCH 25 L Lymph % (Auto) [place] % (Auto) 10.3 H [place] # Eos # Lymph # (Auto) [place] # (Auto) 1.0 H Eos # (Auto) Seg Neutrophils % Seg Neuts % (Manual) Baso # (Auto) Lymphocytes % (Manual) Monocytes % (Manual) Eosinophils % (Manual) Basophils % (Manual) Seg Neutrophils # Seg Neutrophils # Man Lymphocytes # (Manual) Monocytes # (Manual) Eosinophils # (Manual) Nucleated RBC % Basophils # (Manual) PT INR APTT Heparin Anti-Xa Level ABG pH POC ABG pO2 ABG pO2 ABG HCO3 ABG O2 Saturation ABG Base Excess POC ABG pCO2 ABG Hemoglobin ABG Oxyhemoglobin ABG Chloride ABG Glucose Oxyhemoglobin Sodium 149 H Potassium Chloride 108.6 H Carbon Dioxide BUN 28 H Creatinine 0.7 L Glucose 108 H POC Glucose 113 H Lactic Acid Calcium Phosphorus Magnesium AST ALT Lactate Dehydrogenase Total Bilirubin Direct Bilirubin CK-MB (CK-2) C-Reactive Protein NT-Pro-B Natriuret Pep Total Protein Albumin Arterial Blood Glucose Urine WBC (Auto) Urine Creatinine 02/13/20 02/13/20 02/13/20 00:39 05:36 12:25 WBC RBC Hgb Hct MCHC RDW MCV MCH Lymph % (Auto) [place] % (Auto) [place] # Eos # Lymph # (Auto) [place] # (Auto) Eos # (Auto) Seg Neutrophils % Seg Neuts % (Manual) Baso # (Auto) Lymphocytes % (Manual) Monocytes % (Manual) Eosinophils % (Manual) Basophils % (Manual) Seg Neutrophils # Seg Neutrophils # Man Lymphocytes # (Manual) Monocytes # (Manual) Eosinophils # (Manual) Nucleated RBC % Basophils # (Manual) PT INR APTT Heparin Anti-Xa Level ABG pH POC ABG pO2 ABG pO2 ABG HCO3 ABG O2 Saturation ABG Base Excess POC ABG pCO2 ABG Hemoglobin ABG Oxyhemoglobin ABG Chloride ABG Glucose Oxyhemoglobin Sodium Potassium Chloride Carbon Dioxide BUN Creatinine Glucose POC Glucose 129 H 126 H 129 H Lactic Acid Calcium Phosphorus Magnesium AST ALT Lactate Dehydrogenase Total Bilirubin Direct Bilirubin CK-MB (CK-2) C-Reactive Protein NT-Pro-B Natriuret Pep Total Protein Albumin Arterial Blood Glucose Urine WBC (Auto) Urine Creatinine 02/13/20 02/14/2020 17:59 00:15 05:41 WBC RBC Hgb Hct MCHC RDW MCV MCH Lymph % (Auto) [place] % (Auto) [place] # Eos # Lymph # (Auto) [place] # (Auto) Eos # (Auto) Seg Neutrophils % Seg Neuts % (Manual) Baso # (Auto) Lymphocytes % (Manual) Monocytes % (Manual) Eosinophils % (Manual) Basophils % (Manual) Seg Neutrophils # Seg Neutrophils # Man Lymphocytes # (Manual) Monocytes # (Manual) Eosinophils # (Manual) Nucleated RBC % Basophils # (Manual) PT INR APTT Heparin Anti-Xa Level ABG pH POC ABG pO2 ABG pO2 ABG HCO3 ABG O2 Saturation ABG Base Excess POC ABG pCO2 ABG Hemoglobin ABG Oxyhemoglobin ABG Chloride ABG Glucose Oxyhemoglobin Sodium Potassium Chloride Carbon Dioxide BUN Creatinine Glucose POC Glucose 153 H 130 H 130 H Lactic Acid Calcium Phosphorus Magnesium AST ALT Lactate Dehydrogenase Total Bilirubin Direct Bilirubin CK-MB (CK-2) C-Reactive Protein NT-Pro-B Natriuret Pep Total Protein Albumin Arterial Blood Glucose Urine WBC (Auto) Urine Creatinine 02/14/20 02/15/20 02/15/20 11:32 00:12 05:27 WBC RBC Hgb Hct MCHC RDW MCV MCH Lymph % (Auto) [place] % (Auto) [place] # Eos # Lymph # (Auto) [place] # (Auto) Eos # (Auto) Seg Neutrophils % Seg Neuts % (Manual) Baso # (Auto) Lymphocytes % (Manual) Monocytes % (Manual) Eosinophils % (Manual) Basophils % (Manual) Seg Neutrophils # Seg Neutrophils # Man Lymphocytes # (Manual) Monocytes # (Manual) Eosinophils # (Manual) Nucleated RBC % Basophils # (Manual) PT INR APTT Heparin Anti-Xa Level ABG pH POC ABG pO2 ABG pO2 ABG HCO3 ABG O2 Saturation ABG Base Excess POC ABG pCO2 ABG Hemoglobin ABG Oxyhemoglobin ABG Chloride ABG Glucose Oxyhemoglobin Sodium Potassium Chloride Carbon Dioxide BUN Creatinine Glucose POC Glucose 157 H 124 H 111 H Lactic Acid Calcium Phosphorus Magnesium AST ALT Lactate Dehydrogenase Total Bilirubin Direct Bilirubin CK-MB (CK-2) C-Reactive Protein NT-Pro-B Natriuret Pep Total Protein Albumin Arterial Blood Glucose Urine WBC (Auto) Urine Creatinine 02/15/20 02/15/20 02/15/20 06:59 06:59 11:14 WBC RBC Hgb 10.4 L Hct 33.7 L MCHC 31 L RDW 19.4 H MCV 80 L MCH 24 L Lymph % (Auto) [place] % (Auto) [place] # Eos # Lymph # (Auto) [place] # (Auto) Eos # (Auto) Seg Neutrophils % Seg Neuts % (Manual) Baso # (Auto) Lymphocytes % (Manual) Monocytes % (Manual) Eosinophils % (Manual) Basophils % (Manual) 2.0 H Seg Neutrophils # Seg Neutrophils # Man Lymphocytes # (Manual) Monocytes # (Manual) Eosinophils # (Manual) Nucleated RBC % 1.0 H Basophils # (Manual) 0.2 H PT INR APTT Heparin Anti-Xa Level ABG pH POC ABG pO2 ABG pO2 ABG HCO3 ABG O2 Saturation ABG Base Excess POC ABG pCO2 ABG Hemoglobin ABG Oxyhemoglobin ABG Chloride ABG Glucose Oxyhemoglobin Sodium 149 H Potassium Chloride 108.4 H Carbon Dioxide 31 H BUN 40 H Creatinine 0.7 L Glucose 150 H POC Glucose 128 H Lactic Acid Calcium Phosphorus Magnesium AST ALT Lactate Dehydrogenase Total Bilirubin Direct Bilirubin CK-MB (CK-2) C-Reactive Protein NT-Pro-B Natriuret Pep Total Protein Albumin Arterial Blood Glucose Urine WBC (Auto) Urine Creatinine Chest x-ray: pending Allied health notes reviewed: nursing
[2020-02-15] MEDS: DIGOXIN 0.5 MG/2 ML INJ IV SCH (18:03)
[2020-02-15] MEDS: MORPHINE 2 MG/1 ML INJ IV PRN (21:31)
[2020-02-15] MEDS: TAMSULOSIN 0.4 MG CAP PO SCH (21:32)
[2020-02-15] MEDS: POLYETHYLENE GLYCOL 3350 17 GM POWDER PO SCH (21:35)
[2020-02-16] MEDS: METOPROLOL TARTRATE 50 MG TAB PO SCH ×4 (05:28→17:18)
[2020-02-16] MEDS: INSULIN REGULAR, HUMAN 100 UNIT/ML 3ML VIAL SUB-Q SCH ×4 (05:28→18:41)
[2020-02-16 08:33] LABS: Blood Urea Nitrogen 38 mg/dL (9-20); Calcium 8.8 mg/dL (8.4-10.2); Hemolysis Index 25
[2020-02-16 08:52] LABS: BUN/Creatinine Ratio 63
[2020-02-16] MEDS: QUEtiapine 100 MG TAB PO SCH ×2 (09:46→22:03)
[2020-02-16] MEDS: GLYCOPYRROLATE 2 MG TAB PO SCH ×3 (09:46→20:59)
[2020-02-16] MEDS: CLOPIDOGREL 75 MG TAB PO SCH (09:47)
[2020-02-16] MEDS: APIXABAN 5 MG TAB PO SCH ×2 (09:47→20:59)
[2020-02-16] MEDS: MORPHINE 2 MG/1 ML INJ IV PRN ×2 (09:47→17:40)
[2020-02-16] MEDS: LANSOPRAZOLE 30 MG SOLUTAB FEEDTUBE SCH (09:47)
[2020-02-16] MEDS: MIDODRINE 5 MG TAB PO SCH ×3 (09:47→15:10)
--- NOTE | 2020-02-16 11:10 | Consultation ---
History of Present Illness - Reason for Consult Consult date: 02/16/20 Reason for consult: britney siegel - History of Present Psychiatric Illness Calderon Araiza is a 64y/o male patient who presented to the ER with shortness of breath. The patient was eventually intubated. I attempted to interview the patient this morning, he is lying in bed awake. He has a trach/on vent. The patient is suctioning himself and coughing uncontrollably. He is unable to speak due to his track. He does motion and make eye contact as I'm talking to him. The patient is having some difficulty with his coughing and is wheezing. PAST PSYCHIATRIC HISTORY: Unable to assess Family Psychiatric History None reported or documented SOCIAL HISTORY Unable to assess REVIEW OF SYSTEMS Constitutional: Negative for weight loss ENT: Trach Respiratory: Cough, SOB MENTAL STATUS Unable to adequately assess Assessment Mental Health Evaluation Alcohol Use Disorder Treatment plan No meds at this time SItter: Defer to primary Medical: Per primary Disposition: Do not recommend acute inpatient psychiatric treatment at this time. It is my clinical opinion the patient would not benefit from psychiatric servies at this time. The patient has acute and complex medical conditions that supersede his need for inpatient psychiatric services. I.e: acute respiratory failure with trach and vent, acute PE, acute DVT, Afib and acute CHF necessitated tube feed. Will sing off. Please replace consult once the patient's medical condition improves. Thanks. Medications and Allergies Allergies Allergy/AdvReac Type Severity Reaction Status Date / Time No Known Allergies Allergy Verified 06/23/19 08:58 Home Medications Medication Instructions Recorded Confirmed Last Taken Type lisinopriL [Zestril TAB] 10 mg PO QDAY #30 tablet 12/29/18 11/24/19 Unknown Rx Albuterol Mdi (or & Nicu Only) 2 puff IH Q4HR PRN #1 inhalation 06/25/19 11/24/19 Unknown Rx [ProAir HFA Inhaler] Aspirin [Aspirin BABY CHEW TAB] 81 mg PO QDAY #100 tab.chew 09/20/19 11/24/19 Unknown Rx AtorvaSTATin [Lipitor] 40 mg PO QHS #30 tablet 09/20/19 11/24/19 Unknown Rx Clopidogrel [Plavix] 75 mg PO QDAY #30 tablet 09/20/19 11/24/19 Unknown Rx Furosemide [Lasix TAB] 20 mg PO QDAY #30 tablet 09/20/19 11/24/19 Unknown Rx Pantoprazole [Protonix] 40 mg PO QDAY #10 tablet 09/24/19 11/24/19 Unknown Rx Spironolactone [Aldactone] 25 mg PO QDAY #30 tablet 09/24/19 11/24/19 Unknown Rx carBAMazepine [TEGretol] 100 mg PO BID #60 tablet 09/24/19 11/25/19 Unknown Rx carvediloL [Coreg] 3.125 mg PO BID #60 tablet 09/24/19 11/24/19 Unknown Rx dexAMETHasone [Dexamethasone] 6 mg PO DAILY #10 tablet 09/24/19 11/25/19 Unknown Rx guaiFENesin ER [Mucinex ER] 600 mg PO Q12H #14 tablet.er 09/24/19 11/25/19 Unknown Rx Active Meds: Active Medications Acetaminophen (Tylenol) 650 mg FEEDTUBE Q6H PRN PRN Reason: Pain, Mild (1-3) Last Admin: 02/13/20 11:09 Dose: 650 mg Documented by: Lipase/Protease/Amylase (Nadir Betancourt 10,500 Unit) 1 each FEEDTUBE PRN PRN PRN Reason: For Clogged Feeding Tube Apixaban (Eliquis) 5 mg PO Q12HR [facility]; Protocol Last Admin: 02/16/20 09:47 Dose: 5 mg Documented by: Atorvastatin Calcium (Lipitor) 40 mg PO QHS [facility] Last Admin: 02/15/20 21:33 Dose: 40 mg Documented by: Clopidogrel Bisulfate (Plavix) 75 mg PO QDAY [facility] Last Admin: 02/16/20 09:47 Dose: 75 mg Documented by: Dextrose (D50w (25gm) Syringe) 50 ml IV Q30MIN PRN; Protocol PRN Reason: Hypoglycemia Last Admin: 02/05/20 00:56 Dose: 50 ml Documented by: Digoxin (Lanoxin) 0.125 mg IV DAILY@1700 [facility] Last Admin: 02/15/20 18:03 Dose: 0.125 mg Documented by: Glycopyrrolate (Glycopyrrolate) 2 mg PO TID [facility] Last Admin: 02/16/20 09:46 Dose: 2 mg Documented by: Haloperidol Lactate (Haldol) 5 mg IV Q6H PRN PRN Reason: Agitation Last Admin: 02/11/20 01:49 Dose: 5 mg Documented by: Hydrophilic Ointment (Vaseline Lip Therapy) 1 applic TP DIRECT PRN PRN Reason: Dry Lips Sodium Chloride (Nacl 0.9% 500 Ml) 500 mls @ 999 mls/hr IV ONCE [facility] Insulin Human Regular (Humulin R) 0 unit SUB-Q Q6H [facility]; Protocol Last Admin: 02/16/20 05:28 Dose: Not Given Documented by: Lansoprazole (Prevacid Solutab) 30 mg FEEDTUBE QDAY [facility] Last Admin: 02/16/20 09:47 Dose: 30 mg Documented by: Metoprolol Tartrate (Metoprolol) 5 mg IV Q6H PRN PRN Reason: SEE INSTRUCTIONS Last Admin: 02/03/20 07:16 Dose: 5 mg Documented by: Metoprolol Tartrate (Metoprolol) 50 mg PO Q6HR [facility] Last Admin: 02/16/20 05:28 Dose: Not Given Documented by: Midodrine (Proamatine) 15 mg PO TID@0800,1200,1600 [facility] Last Admin: 02/16/20 09:47 Dose: 15 mg Documented by: Morphine Sulfate (Morphine) 2 mg IV Q4H PRN PRN Reason: Pain, Moderate (4-6) Last Admin: 02/16/20 09:47 Dose: 2 mg Documented by: Multi-Ingred Cream/Lotion/Oil/Oint (Artificial Tears Ophth Oint) 1 applic OU Q4HR PRN PRN Reason: Dry Eye(s) Nitroglycerin (Nitrostat) 0.4 mg SL .Q5MIN PRN PRN Reason: Chest Pain Last Admin: 01/20/20 03:03 Dose: 0.4 mg Documented by: Ondansetron HCl (Zofran) 4 mg IV Q8H PRN PRN Reason: Nausea And Vomiting Last Admin: 02/14/20 07:32 Dose: 4 mg Documented by: Polyethylene Glycol (Miralax 3350) 17 gm PO QHS [facility] Last Admin: 02/15/20 21:35 Dose: 17 gm Documented by: Quetiapine Fumarate (Seroquel) 300 mg PO BID [facility] Last Admin: 02/16/20 09:46 Dose: 300 mg Documented by: Scopolamine (Transderm-Scop) 1 each TD Q72HR [facility] Last Admin: 01/07/20 21:08 Dose: 1 each Documented by: Simple Syrup (Simple Syrup) 15 ml FEEDTUBE PRN PRN PRN Reason: Hypoglycemia Simple Syrup (Simple Syrup) 30 ml FEEDTUBE PRN PRN PRN Reason: Hypoglycemia Sodium Bicarbonate (Sodium Bicarbonate) 325 mg FEEDTUBE PRN PRN PRN Reason: For Clogged Feeding Tube Sodium Chloride (Sodium Chloride Flush Syringe 10 Ml) 10 ml IV BID [facility] Last Admin: 02/16/20 09:48 Dose: 10 ml Documented by: Tamsulosin HCl (Flomax) 0.8 mg PO QHS [facility] Last Admin: 02/15/20 21:32 Dose: 0.8 mg Documented by: Mental Status Exam - Vital signs Last Vital Signs Temp 97.5 F L 02/16/20 08:00 Pulse 108 H 02/16/20 07:40 Resp 22 02/16/20 09:47 BP 100/75 02/16/20 07:40 Pulse Ox 95 02/16/20 11:08 Results Result Diagrams: 02/15/20 06:59 02/16/20 07:53 Abnormal lab results 02/15/20 02/15/20 02/15/20 Range/Units 06:59 11:14 17:46 Basophils % (Manual) 2.0 H (0.0-1.8) % Nucleated RBC % 1.0 H (0.0-0.9) % Basophils # (Manual) 0.2 H (0.0-0.1) K/mm3 Chloride (98-107) mmol/L BUN (9-20) mg/dL Creatinine (0.8-1.3) mg/dL Glucose (75-100) mg/dL POC Glucose 128 H 154 H (70-105) mg/dL 02/15/20 02/16/20 02/16/20 Range/Units 23:50 05:03 07:53 Basophils % (Manual) (0.0-1.8) % Nucleated RBC % (0.0-0.9) % Basophils # (Manual) (0.0-0.1) K/mm3 Chloride 107.9 H (98-107) mmol/L BUN 38 H (9-20) mg/dL Creatinine 0.6 L (0.8-1.3) mg/dL Glucose 151 H (75-100) mg/dL POC Glucose 135 H 148 H (70-105) mg/dL All other labs normal.
--- NOTE | 2020-02-16 12:56 | Progress Note ---
Assessment and Plan Chest pain, resolved LHC done 01/22/20 widely patent previous LAD stent. We found mild nonobstructive atherosclerosis of the mid right coronary artery. Otherwise the rest of the coronary system was without significant atherosclerosis. LVEF 40 to 45%. There was some hypokinesis of the basal inferior wall suggestive of previous or recent infarct. ECG done 01/19/20 shows sinus rhythm with low voltage QRS and subtle ST segment elevations in the inferolateral leads that suggested possible concern for an acute injury at that time. Atrial fibrillation, paroxysmal on metoprolol and digoxin amiodarone discontinued due to liver transaminases Ischemic Cardiomyopathy re-echo this presentation reports an LVEF 40-45%. Hx of CAD Multifocal pneumonia negative COVID-19 test x 3 Chronic Respiratory failure s/p trach History of COPD Acute PE/DVT -on Eliquis Anemia Partial SBO vs ileus Recommend: Continue medical management for atrial fibrillation and coronary artery disease. Otherwise, conservative cardiac management. Subjective Date of service: 02/16/20 Principal diagnosis: Ac hypoxemic resp failure; Pneumonia; PUI COVID-19; CHF; COPD; HTN Interval history: No interval cardiac changes. Atrial fibrillation with a well controlled ventricular rate on telemetry. Objective Vital Signs Temp Pulse Pulse Resp BP Pulse Ox Pulse Ox 02/16/20 12:28 101 H 104/83 02/16/20 12:00 97.8 F 96 H 102 H 29 H 104/85 93 02/16/20 11:30 109 H 22 116/80 93 02/16/20 11:08 108 H 104/85 95 02/16/20 11:00 111 H 24 104/85 95 02/16/20 10:30 120 H 26 H 116/80 96 02/16/20 10:00 97 H 22 114/74 97 02/16/20 09:47 22 02/16/20 09:30 105 H 24 114/81 96 02/16/20 09:00 101 H 22 114/81 97 02/16/20 08:30 102 H 21 102/81 97 02/16/20 08:00 97.5 F L 115 H 92 H 18 100/75 94 02/16/20 07:40 108 H 17 100/75 97 02/16/20 07:30 101 H 24 113/80 97 02/16/20 07:00 97 H 25 H 113/80 97 02/16/20 06:30 104 H 19 102/84 02/16/20 06:00 110 H 16 97/78 98 02/16/20 05:30 96 H 21 97/78 98 02/16/20 05:00 95 H 16 104/74 97 02/16/20 04:30 86 19 104/74 97 02/16/20 04:00 99 H 85 23 106/82 99 02/16/20 03:51 98.8 F 02/16/20 03:30 94 H 23 93/72 100 02/16/20 03:02 112 H 93/72 99 98 02/16/20 03:00 96 H 22 93/72 99 02/16/20 02:30 88 23 107/83 99 02/16/20 02:00 130 H 20 107/83 97 02/16/20 01:30 95 H 23 101/76 99 02/16/20 01:00 88 19 101/76 98 02/16/20 00:30 89 21 100/72 02/16/20 00:00 96 H 88 13 97/69 98 02/15/20 23:32 98 H 109/76 97 02/15/20 23:30 85 22 110/78 98 02/15/20 23:03 98.9 F 02/15/20 23:00 95 H 27 H 100/80 100 02/15/20 22:30 106 H 32 H 101/83 94 02/15/20 22:00 89 23 113/85 99 02/15/20 21:40 97 H 29 H 113/85 99 02/15/20 21:31 27 H 02/15/20 21:30 116 H 30 H 113/85 100 02/15/20 21:00 88 23 113/77 98 02/15/20 20:30 106 H 17 104/78 97 02/15/20 20:00 109 H 94 H 13 110/73 96 02/15/20 19:55 97.6 F 02/15/20 19:30 102 H 21 117/78 02/15/20 19:00 103 H 26 H 103/77 99 02/15/20 18:52 99 H 103/77 02/15/20 18:30 88 19 103/77 99 02/15/20 18:03 115 H 100/80 02/15/20 18:00 93 H 26 H 100/80 98 02/15/20 17:30 111 H 28 H 108/87 98 02/15/20 17:00 93 H 29 H 109/85 100 02/15/20 16:30 120 H 31 H 113/85 98 02/15/20 16:13 116 H 26 H 113/85 99 02/15/20 16:00 97.6 F 105 H 105 H 21 99/74 100 02/15/20 15:30 99 H 25 H 114/78 100 02/15/20 15:00 96 H 25 H 111/76 100 02/15/20 14:30 108 H 30 H 109/83 96 02/15/20 14:00 98 H 24 119/74 100 02/15/20 13:30 108 H 18 113/89 100 02/15/20 13:15 98 02/15/20 13:00 77 17 100/75 98 - Physical Examination General: Other (s/p trach) HEENT: Positive: PERRL Neck: Positive: neck supple Cardiac: Positive: irregularly irregular Neuro: Positive: Weakness - Labs and Meds Comprehensive Metabolic Panel 02/16/20 Range/Units 07:53 Sodium 145 (137-145) mmol/L Potassium 3.7 (3.6-5.0) mmol/L Chloride 107.9 H (98-107) mmol/L Carbon Dioxide 27 (22-30) mmol/L BUN 38 H (9-20) mg/dL Creatinine 0.6 L (0.8-1.3) mg/dL Glucose 151 H (75-100) mg/dL Calcium 8.8 (8.4-10.2) mg/dL - Allied health notes Allied health notes reviewed: nursing
--- NOTE | 2020-02-16 13:20 | Progress Note ---
Assessment and Plan Acute hypoxemic respiratory failure Bilateral pneumonia, community acquired. Acute LLL branch P.E. Acute DVT Person under investigation for COVID-19 infection. Acute congestive heart failure exacerbation. History of cerebrovascular accident. Acute chronic obstructive pulmonary disease exacerbation. Hypertension and hypertensive urgency at presentation. History of arthritis. Leukocytosis. Lactic acidosis. 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 - continue Robinul & Scopolamine for secretion control - continue care as below otherwise; - daily SAT's and SBT assessment as tolerated - rate control per cardiology team - continue prn haldol for agitation to avoid hypoventilation (stopped Lorazepam) - continue Flomax - antiinfective's per ID rec's - Midodrine for BP support - prn mucomyst nebs re: secretions - continue full anticoagulation with Apixaban - continue seroquel for anxiolysis / delirium - COVID isolation per facility protocol - prn diuresis while following electrolytes / I's & O's - continue to wean oxygen for O2 sat's > 92% - continue bronchodilators with routine trach care and pulmonary hygiene per RT - continue Robinul & Scopolamine for secretion control - VAP bundle addressed (Aspiration precautions, HOB >40) - continue to wean per pulmonary driven protocols - sedation target is RASS 0 to -1 - continue prn analgesia per CPOT score - follow clinically re: fever curves / trend WBC - Avoid delirium (no benzodiazepines if they can be avoided) - Maintain sleep-wake cycle - enteral nutrition at goal rate as tolerated - continue accucheck's with glycemic control per SSI for target blood glucose goal of 140-180 mg/dL while critically ill; Avoid hypoglycemia - for VTE he is on IV Heparin - continue stress ulcer prophylaxis with Famotidine - continue mobility protocols for pressure ulcer prophylaxis - continue fall precautions - continue wound care management per RN / WCT - Supportive transfusions to keep HgB>7g/dL - CXR's and ABG's prn - Continue to monitor neurologic function - Continue chronic home medications - Continue all supportive care ........ re-evaluate in am & prn CONDITION: CRITICAL PROGNOSIS: GUARDED CODE STATUS: FULL CODE The high probability of a clinically significant, sudden or life threatening deterioration of the [Respiratory, cardiovascular & neurological] system(s) required my full and direct attention, intervention and personal management. The aggregate critical care time was [36] minutes without overlap. Time includes spent on [x] Data Review and interpretation [x] Patient assessment and monitoring of vital signs [x] Documentation [x] Medication orders and management Subjective Date of service: 02/16/20 Principal diagnosis: Ac hypoxemic resp failure; Pneumonia; PUI COVID-19; CHF; COPD; HTN Interval history: Patient is seen today for: Acute hypoxemic respiratory failure; [place]. Pneumonia (CAP); PUI COVID-19 infection; AE-CHF; AE-COPD; H/O CVA; HTN Seen and examined at bedside; 24 hour events reviewed; nursing and respiratory care staff consulted; no adverse overnight events reported to me; resting peacefully in bed; on t-piece and tolerating well so far this morning; denies acute chest pains or palpitations; no N/V/F/C Objective Vital Signs - 12hr 02/16/20 02/16/20 02/16/20 01:30 02:00 02:30 Temperature Pulse Rate 95 H 130 H 88 Pulse Rate [ From Monitor] Respiratory 23 20 23 Rate Blood Pressure 101/76 107/83 107/83 O2 Sat by Pulse 99 97 99 Oximetry O2 Sat by Pulse Oximetry [ Assessment] 02/16/20 02/16/20 02/16/20 03:00 03:02 03:30 Temperature Pulse Rate 96 H 112 H 94 H Pulse Rate [ From Monitor] Respiratory 22 23 Rate Blood Pressure 93/72 93/72 93/72 O2 Sat by Pulse 99 99 100 Oximetry O2 Sat by Pulse 98 Oximetry [ Assessment] 02/16/20 02/16/20 02/16/20 03:51 04:00 04:30 Temperature 98.8 F Pulse Rate 99 H 86 Pulse Rate [ 85 From Monitor] Respiratory 23 19 Rate Blood Pressure 106/82 104/74 O2 Sat by Pulse 99 97 Oximetry O2 Sat by Pulse Oximetry [ Assessment] 02/16/20 02/16/20 02/16/20 05:00 05:30 06:00 Temperature Pulse Rate 95 H 96 H 110 H Pulse Rate [ From Monitor] Respiratory 16 21 16 Rate Blood Pressure 104/74 97/78 97/78 O2 Sat by Pulse 97 98 98 Oximetry O2 Sat by Pulse Oximetry [ Assessment] 02/16/20 02/16/20 02/16/20 06:30 07:00 07:30 Temperature Pulse Rate 104 H 97 H 101 H Pulse Rate [ From Monitor] Respiratory 19 25 H 24 Rate Blood Pressure 102/84 113/80 113/80 O2 Sat by Pulse 97 97 Oximetry O2 Sat by Pulse Oximetry [ Assessment] 02/16/20 02/16/20 02/16/20 07:40 08:00 08:30 Temperature 97.5 F L Pulse Rate 108 H 115 H 102 H Pulse Rate [ 92 H From Monitor] Respiratory 17 18 21 Rate Blood Pressure 100/75 100/75 102/81 O2 Sat by Pulse 97 94 97 Oximetry O2 Sat by Pulse Oximetry [ Assessment] 02/16/20 02/16/20 02/16/20 09:00 09:30 09:47 Temperature Pulse Rate 101 H 105 H Pulse Rate [ From Monitor] Respiratory 22 24 22 Rate Blood Pressure 114/81 114/81 O2 Sat by Pulse 97 96 Oximetry O2 Sat by Pulse Oximetry [ Assessment] 02/16/20 02/16/20 02/16/20 10:00 10:30 11:00 Temperature Pulse Rate 97 H 120 H 111 H Pulse Rate [ From Monitor] Respiratory 22 26 H 24 Rate Blood Pressure 114/74 116/80 104/85 O2 Sat by Pulse 97 96 95 Oximetry O2 Sat by Pulse Oximetry [ Assessment] 02/16/20 02/16/20 02/16/20 11:08 11:30 12:00 Temperature 97.8 F Pulse Rate 108 H 109 H 96 H Pulse Rate [ 102 H From Monitor] Respiratory 22 29 H Rate Blood Pressure 104/85 116/80 104/85 O2 Sat by Pulse 95 93 93 Oximetry O2 Sat by Pulse Oximetry [ Assessment] 02/16/20 12:28 Temperature Pulse Rate 101 H Pulse Rate [ From Monitor] Respiratory Rate Blood Pressure 104/83 O2 Sat by Pulse Oximetry O2 Sat by Pulse Oximetry [ Assessment] Constitutional: appears uncomfortable, other (elelelderly and obese male, normocephalic with mildly increased respiratory effort at rest) Eyes: non-icteric ENT: oropharynx moist, other (+ midline tracheostomy) Neck: supple, no JVD Effort: mildly labored Ascultation: Bilateral: diminished breath sounds, rhonchi (and referred upper airway sounds) Percussion: Bilateral: not dull Cardiovascular: irregular rhythm, other (flow murmur) Gastrointestinal: normoactive bowel sounds, soft, non-tender, non-distended (protuberant), other (protuberant; PEG in place) Integumentary: normal Extremities: no cyanosis, pulses normal, no ischemia or petechiae, edema (bilateral upper ) Neurologic: non-focal exam (moves extremities), pupils equal and round, CN II- XII normal, unable to assess Psychiatric: anxious CBC and BMP: 02/15/20 06:59 02/16/20 07:53 ABG, PT/INR, D-dimer: ABG ABG pH 7.502 (7.320-7.450) H 02/11/20 14:11 POC ABG pCO2 34.8 mmHg (32.0-48.0) 02/11/20 14:11 ABG pCO2 54.1 mm Hg 02/09/20 21:40 POC ABG pO2 77.7 mmHg (83-108) L 02/11/20 14:11 ABG pO2 59.8 mm Hg (80.0-90.0) L 02/09/20 21:40 POC ABG HCO3 26.7 02/11/20 14:11 ABG O2 Saturation 88.9 % (95.0-99.0) L 02/09/20 21:40 PT/INR, D-dimer PT 27.0 Sec. (12.2-14.9) H 02/07/20 15:03 INR 2.46 (0.87-1.13) H 02/07/20 15:03 Abnormal lab findings: Abnormal Labs 11/24/19 11/24/19 11/24/19 02:53 02:53 03:45 WBC 14.3 H RBC Hgb Hct MCHC RDW 17.2 H MCV MCH Lymph % (Auto) [place] % (Auto) [place] # Eos # Lymph # (Auto) [place] # (Auto) Eos # (Auto) Seg Neutrophils % Seg Neuts % (Manual) Baso # (Auto) Lymphocytes % (Manual) Monocytes % (Manual) Eosinophils % (Manual) Basophils % (Manual) Seg Neutrophils # Seg Neutrophils # Man 8.3 H Lymphocytes # (Manual) Monocytes # (Manual) 0.9 H Eosinophils # (Manual) Nucleated RBC % Basophils # (Manual) PT INR APTT Heparin Anti-Xa Level ABG pH 7.313 L POC ABG pO2 ABG pO2 102.8 H ABG HCO3 ABG O2 Saturation ABG Base Excess -2.9 L POC ABG pCO2 ABG Hemoglobin ABG Oxyhemoglobin ABG Chloride ABG Glucose Oxyhemoglobin 93.9 L Sodium Potassium Chloride Carbon Dioxide BUN Creatinine Glucose 195 H POC Glucose Lactic Acid Calcium Phosphorus Magnesium AST ALT Lactate Dehydrogenase Total Bilirubin Direct Bilirubin CK-MB (CK-2) 4.3 H C-Reactive Protein NT-Pro-B Natriuret Pep 1181 H Total Protein Albumin Arterial Blood Glucose Urine WBC (Auto) Urine Creatinine 11/24/19 11/24/19 11/24/19 04:53 04:53 10:37 WBC RBC Hgb Hct MCHC RDW MCV MCH Lymph % (Auto) [place] % (Auto) [place] # Eos # Lymph # (Auto) [place] # (Auto) Eos # (Auto) Seg Neutrophils % Seg Neuts % (Manual) Baso # (Auto) Lymphocytes % (Manual) Monocytes % (Manual) Eosinophils % (Manual) Basophils % (Manual) Seg Neutrophils # Seg Neutrophils # Man Lymphocytes # (Manual) Monocytes # (Manual) Eosinophils # (Manual) Nucleated RBC % Basophils # (Manual) PT INR APTT Heparin Anti-Xa Level ABG pH POC ABG pO2 ABG pO2 ABG HCO3 ABG O2 Saturation ABG Base Excess POC ABG pCO2 ABG Hemoglobin ABG Oxyhemoglobin ABG Chloride ABG Glucose Oxyhemoglobin Sodium Potassium Chloride Carbon Dioxide BUN Creatinine Glucose 162 H POC Glucose Lactic Acid 2.40 H* 2.50 H* Calcium Phosphorus Magnesium AST ALT Lactate Dehydrogenase 240 H Total Bilirubin Direct Bilirubin CK-MB (CK-2) C-Reactive Protein NT-Pro-B Natriuret Pep Total Protein Albumin Arterial Blood Glucose Urine WBC (Auto) Urine Creatinine 11/24/19 11/24/19 11/24/19 12:21 14:50 19:54 WBC RBC Hgb Hct MCHC RDW MCV MCH Lymph % (Auto) [place] % (Auto) [place] # Eos # Lymph # (Auto) [place] # (Auto) Eos # (Auto) Seg Neutrophils % Seg Neuts % (Manual) Baso # (Auto) Lymphocytes % (Manual) Monocytes % (Manual) Eosinophils % (Manual) Basophils % (Manual) Seg Neutrophils # Seg Neutrophils # Man Lymphocytes # (Manual) Monocytes # (Manual) Eosinophils # (Manual) Nucleated RBC % Basophils # (Manual) PT INR APTT Heparin Anti-Xa Level ABG pH POC ABG pO2 ABG pO2 ABG HCO3 ABG O2 Saturation ABG Base Excess POC ABG pCO2 ABG Hemoglobin ABG Oxyhemoglobin ABG Chloride ABG Glucose Oxyhemoglobin Sodium Potassium Chloride Carbon Dioxide BUN Creatinine Glucose POC Glucose 145 H 143 H 124 H Lactic Acid Calcium Phosphorus Magnesium AST ALT Lactate Dehydrogenase Total Bilirubin Direct Bilirubin CK-MB (CK-2) C-Reactive Protein NT-Pro-B Natriuret Pep Total Protein Albumin Arterial Blood Glucose Urine WBC (Auto) Urine Creatinine 11/25/19 11/25/19 11/25/19 00:18 03:18 05:11 WBC 13.7 H RBC Hgb Hct MCHC RDW 17.1 H MCV MCH Lymph % (Auto) 10.8 L [place] % (Auto) 8.7 H [place] # 1.2 H Eos # Lymph # (Auto) [place] # (Auto) Eos # (Auto) Seg Neutrophils % 80.2 H Seg Neuts % (Manual) Baso # (Auto) Lymphocytes % (Manual) Monocytes % (Manual) Eosinophils % (Manual) Basophils % (Manual) Seg Neutrophils # 11.0 H Seg Neutrophils # Man Lymphocytes # (Manual) Monocytes # (Manual) Eosinophils # (Manual) Nucleated RBC % Basophils # (Manual) PT INR APTT Heparin Anti-Xa Level ABG pH 7.333 L POC ABG pO2 ABG pO2 61.2 L ABG HCO3 ABG O2 Saturation 90.2 L ABG Base Excess POC ABG pCO2 ABG Hemoglobin 13.7 L ABG Oxyhemoglobin ABG Chloride ABG Glucose Oxyhemoglobin 88.2 L Sodium Potassium Chloride Carbon Dioxide BUN Creatinine Glucose POC Glucose 109 H Lactic Acid Calcium Phosphorus Magnesium AST ALT Lactate Dehydrogenase Total Bilirubin Direct Bilirubin CK-MB (CK-2) C-Reactive Protein NT-Pro-B Natriuret Pep Total Protein Albumin Arterial Blood Glucose Urine WBC (Auto) Urine Creatinine 11/25/19 11/25/19 11/26/19 05:11 11:40 03:12 WBC RBC Hgb Hct MCHC RDW MCV MCH Lymph % (Auto) [place] % (Auto) [place] # Eos # Lymph # (Auto) [place] # (Auto) Eos # (Auto) Seg Neutrophils % Seg Neuts % (Manual) Baso # (Auto) Lymphocytes % (Manual) Monocytes % (Manual) Eosinophils % (Manual) Basophils % (Manual) Seg Neutrophils # Seg Neutrophils # Man Lymphocytes # (Manual) Monocytes # (Manual) Eosinophils # (Manual) Nucleated RBC % Basophils # (Manual) PT INR APTT Heparin Anti-Xa Level ABG pH POC ABG pO2 ABG pO2 155.1 H ABG HCO3 27.8 H ABG O2 Saturation ABG Base Excess POC ABG pCO2 ABG Hemoglobin 12.2 L ABG Oxyhemoglobin ABG Chloride ABG Glucose Oxyhemoglobin Sodium Potassium Chloride Carbon Dioxide BUN 23 H Creatinine Glucose 110 H POC Glucose 108 H Lactic Acid Calcium Phosphorus Magnesium AST ALT Lactate Dehydrogenase Total Bilirubin Direct Bilirubin CK-MB (CK-2) C-Reactive Protein NT-Pro-B Natriuret Pep Total Protein Albumin Arterial Blood Glucose Urine WBC (Auto) Urine Creatinine 11/26/19 11/26/19 11/26/19 06:17 10:43 10:43 WBC 11.4 H RBC Hgb Hct MCHC RDW 17.1 H MCV MCH Lymph % (Auto) [place] % (Auto) [place] # Eos # Lymph # (Auto) [place] # (Auto) Eos # (Auto) Seg Neutrophils % Seg Neuts % (Manual) Baso # (Auto) Lymphocytes % (Manual) Monocytes % (Manual) Eosinophils % (Manual) Basophils % (Manual) Seg Neutrophils # Seg Neutrophils # Man Lymphocytes # (Manual) Monocytes # (Manual) Eosinophils # (Manual) Nucleated RBC % Basophils # (Manual) PT INR APTT Heparin Anti-Xa Level ABG pH POC ABG pO2 ABG pO2 ABG HCO3 ABG O2 Saturation ABG Base Excess POC ABG pCO2 ABG Hemoglobin ABG Oxyhemoglobin ABG Chloride ABG Glucose Oxyhemoglobin Sodium Potassium Chloride Carbon Dioxide BUN 29 H Creatinine Glucose POC Glucose 107 H Lactic Acid Calcium Phosphorus Magnesium AST ALT Lactate Dehydrogenase Total Bilirubin Direct Bilirubin CK-MB (CK-2) C-Reactive Protein NT-Pro-B Natriuret Pep Total Protein Albumin Arterial Blood Glucose Urine WBC (Auto) Urine Creatinine 11/26/19 11/27/19 11/27/19 17:11 01:53 04:11 WBC RBC Hgb Hct MCHC RDW MCV MCH Lymph % (Auto) [place] % (Auto) [place] # Eos # Lymph # (Auto) [place] # (Auto) Eos # (Auto) Seg Neutrophils % Seg Neuts % (Manual) Baso # (Auto) Lymphocytes % (Manual) Monocytes % (Manual) Eosinophils % (Manual) Basophils % (Manual) Seg Neutrophils # Seg Neutrophils # Man Lymphocytes # (Manual) Monocytes # (Manual) Eosinophils # (Manual) Nucleated RBC % Basophils # (Manual) PT INR APTT Heparin Anti-Xa Level ABG pH POC ABG pO2 ABG pO2 ABG HCO3 29.2 H ABG O2 Saturation ABG Base Excess 3.4 H POC ABG pCO2 ABG Hemoglobin 13.3 L ABG Oxyhemoglobin ABG Chloride ABG Glucose Oxyhemoglobin 94.5 L Sodium Potassium Chloride Carbon Dioxide BUN Creatinine Glucose POC Glucose 113 H 108 H Lactic Acid Calcium Phosphorus Magnesium AST ALT Lactate Dehydrogenase Total Bilirubin Direct Bilirubin CK-MB (CK-2) C-Reactive Protein NT-Pro-B Natriuret Pep Total Protein Albumin Arterial Blood Glucose Urine WBC (Auto) Urine Creatinine 11/27/19 11/28/19 11/28/19 05:27 05:00 05:25 WBC RBC Hgb Hct MCHC RDW MCV MCH Lymph % (Auto) [place] % (Auto) [place] # Eos # Lymph # (Auto) [place] # (Auto) Eos # (Auto) Seg Neutrophils % Seg Neuts % (Manual) Baso # (Auto) Lymphocytes % (Manual) Monocytes % (Manual) Eosinophils % (Manual) Basophils % (Manual) Seg Neutrophils # Seg Neutrophils # Man Lymphocytes # (Manual) Monocytes # (Manual) Eosinophils # (Manual) Nucleated RBC % Basophils # (Manual) PT INR APTT Heparin Anti-Xa Level ABG pH POC ABG pO2 68.1 L ABG pO2 ABG HCO3 ABG O2 Saturation ABG Base Excess POC ABG pCO2 ABG Hemoglobin ABG Oxyhemoglobin 91.2 L ABG Chloride ABG Glucose Oxyhemoglobin Sodium Potassium Chloride Carbon Dioxide BUN Creatinine Glucose POC Glucose 111 H 110 H Lactic Acid Calcium Phosphorus Magnesium AST ALT Lactate Dehydrogenase Total Bilirubin Direct Bilirubin CK-MB (CK-2) C-Reactive Protein NT-Pro-B Natriuret Pep Total Protein Albumin Arterial Blood Glucose Urine WBC (Auto) Urine Creatinine 11/28/19 11/28/19 11/28/19 12:08 13:47 13:47 WBC 11.3 H RBC Hgb Hct MCHC RDW 16.1 H MCV MCH Lymph % (Auto) [place] % (Auto) 9.9 H [place] # 1.1 H Eos # Lymph # (Auto) [place] # (Auto) Eos # (Auto) Seg Neutrophils % 71.4 H Seg Neuts % (Manual) Baso # (Auto) Lymphocytes % (Manual) Monocytes % (Manual) Eosinophils % (Manual) Basophils % (Manual) Seg Neutrophils # 8.1 H Seg Neutrophils # Man Lymphocytes # (Manual) Monocytes # (Manual) Eosinophils # (Manual) Nucleated RBC % Basophils # (Manual) PT INR APTT Heparin Anti-Xa Level ABG pH POC ABG pO2 ABG pO2 ABG HCO3 ABG O2 Saturation ABG Base Excess POC ABG pCO2 ABG Hemoglobin ABG Oxyhemoglobin ABG Chloride ABG Glucose Oxyhemoglobin Sodium Potassium Chloride Carbon Dioxide BUN 23 H Creatinine Glucose 123 H POC Glucose 112 H Lactic Acid Calcium Phosphorus Magnesium AST ALT Lactate Dehydrogenase Total Bilirubin Direct Bilirubin CK-MB (CK-2) C-Reactive Protein NT-Pro-B Natriuret Pep Total Protein Albumin 3.7 L Arterial Blood Glucose Urine WBC (Auto) Urine Creatinine 11/28/19 11/29/19 11/29/19 17:26 03:55 17:04 WBC RBC Hgb Hct MCHC RDW MCV MCH Lymph % (Auto) [place] % (Auto) [place] # Eos # Lymph # (Auto) [place] # (Auto) Eos # (Auto) Seg Neutrophils % Seg Neuts % (Manual) Baso # (Auto) Lymphocytes % (Manual) Monocytes % (Manual) Eosinophils % (Manual) Basophils % (Manual) Seg Neutrophils # Seg Neutrophils # Man Lymphocytes # (Manual) Monocytes # (Manual) Eosinophils # (Manual) Nucleated RBC % Basophils # (Manual) PT INR APTT Heparin Anti-Xa Level ABG pH POC ABG pO2 ABG pO2 65.7 L ABG HCO3 28.3 H ABG O2 Saturation 93.9 L ABG Base Excess 3.6 H POC ABG pCO2 ABG Hemoglobin 13.3 L ABG Oxyhemoglobin ABG Chloride ABG Glucose Oxyhemoglobin 91.5 L Sodium Potassium Chloride Carbon Dioxide BUN Creatinine Glucose POC Glucose 123 H 119 H Lactic Acid Calcium Phosphorus Magnesium AST ALT Lactate Dehydrogenase Total Bilirubin Direct Bilirubin CK-MB (CK-2) C-Reactive Protein NT-Pro-B Natriuret Pep Total Protein Albumin Arterial Blood Glucose Urine WBC (Auto) Urine Creatinine 11/30/19 11/30/19 11/30/19 04:17 04:17 04:56 WBC 13.4 H RBC Hgb Hct MCHC RDW 15.6 H MCV MCH Lymph % (Auto) [place] % (Auto) [place] # Eos # Lymph # (Auto) [place] # (Auto) Eos # (Auto) Seg Neutrophils % Seg Neuts % (Manual) Baso # (Auto) Lymphocytes % (Manual) Monocytes % (Manual) Eosinophils % (Manual) Basophils % (Manual) Seg Neutrophils # Seg Neutrophils # Man Lymphocytes # (Manual) Monocytes # (Manual) Eosinophils # (Manual) Nucleated RBC % Basophils # (Manual) PT INR APTT Heparin Anti-Xa Level ABG pH POC ABG pO2 ABG pO2 56.3 L ABG HCO3 29.3 H ABG O2 Saturation 91.5 L ABG Base Excess 4.7 H POC ABG pCO2 ABG Hemoglobin 12.1 L ABG Oxyhemoglobin ABG Chloride ABG Glucose Oxyhemoglobin 89.2 L Sodium 147 H Potassium Chloride Carbon Dioxide BUN 30 H Creatinine Glucose 124 H POC Glucose Lactic Acid Calcium Phosphorus Magnesium AST ALT Lactate Dehydrogenase Total Bilirubin Direct Bilirubin CK-MB (CK-2) C-Reactive Protein NT-Pro-B Natriuret Pep Total Protein Albumin 3.8 L Arterial Blood Glucose Urine WBC (Auto) Urine Creatinine 11/30/19 11/30/19 11/30/19 05:51 11:54 18:17 WBC RBC Hgb Hct MCHC RDW MCV MCH Lymph % (Auto) [place] % (Auto) [place] # Eos # Lymph # (Auto) [place] # (Auto) Eos # (Auto) Seg Neutrophils % Seg Neuts % (Manual) Baso # (Auto) Lymphocytes % (Manual) Monocytes % (Manual) Eosinophils % (Manual) Basophils % (Manual) Seg Neutrophils # Seg Neutrophils # Man Lymphocytes # (Manual) Monocytes # (Manual) Eosinophils # (Manual) Nucleated RBC % Basophils # (Manual) PT INR APTT Heparin Anti-Xa Level ABG pH POC ABG pO2 ABG pO2 ABG HCO3 ABG O2 Saturation ABG Base Excess POC ABG pCO2 ABG Hemoglobin ABG Oxyhemoglobin ABG Chloride ABG Glucose Oxyhemoglobin Sodium Potassium Chloride Carbon Dioxide BUN Creatinine Glucose POC Glucose 127 H 115 H 143 H Lactic Acid Calcium Phosphorus Magnesium AST ALT Lactate Dehydrogenase Total Bilirubin Direct Bilirubin CK-MB (CK-2) C-Reactive Protein NT-Pro-B Natriuret Pep Total Protein Albumin Arterial Blood Glucose Urine WBC (Auto) Urine Creatinine 12/01/19 12/01/19 12/01/19 01:18 05:22 12:16 WBC RBC Hgb Hct MCHC RDW MCV MCH Lymph % (Auto) [place] % (Auto) [place] # Eos # Lymph # (Auto) [place] # (Auto) Eos # (Auto) Seg Neutrophils % Seg Neuts % (Manual) Baso # (Auto) Lymphocytes % (Manual) Monocytes % (Manual) Eosinophils % (Manual) Basophils % (Manual) Seg Neutrophils # Seg Neutrophils # Man Lymphocytes # (Manual) Monocytes # (Manual) Eosinophils # (Manual) Nucleated RBC % Basophils # (Manual) PT INR APTT Heparin Anti-Xa Level ABG pH POC ABG pO2 ABG pO2 ABG HCO3 ABG O2 Saturation ABG Base Excess POC ABG pCO2 ABG Hemoglobin ABG Oxyhemoglobin ABG Chloride ABG Glucose Oxyhemoglobin Sodium Potassium 3.5 L Chloride 107.8 H Carbon Dioxide BUN 37 H Creatinine Glucose 157 H POC Glucose 118 H 148 H Lactic Acid Calcium 8.2 L D Phosphorus Magnesium AST 48 H ALT 60 H Lactate Dehydrogenase 194 H Total Bilirubin Direct Bilirubin CK-MB (CK-2) C-Reactive Protein 8.50 H NT-Pro-B Natriuret Pep Total Protein 5.5 L Albumin 2.8 L Arterial Blood Glucose Urine WBC (Auto) Urine Creatinine 12/01/19 12/02/19 12/02/19 18:04 00:05 05:16 WBC 11.4 H RBC Hgb Hct MCHC RDW 15.9 H MCV MCH Lymph % (Auto) [place] % (Auto) 9.9 H [place] # 1.1 H Eos # Lymph # (Auto) [place] # (Auto) Eos # (Auto) Seg Neutrophils % 70.3 H Seg Neuts % (Manual) Baso # (Auto) Lymphocytes % (Manual) Monocytes % (Manual) Eosinophils % (Manual) Basophils % (Manual) Seg Neutrophils # 8.0 H Seg Neutrophils # Man Lymphocytes # (Manual) Monocytes # (Manual) Eosinophils # (Manual) Nucleated RBC % Basophils # (Manual) PT INR APTT Heparin Anti-Xa Level ABG pH POC ABG pO2 ABG pO2 ABG HCO3 ABG O2 Saturation ABG Base Excess POC ABG pCO2 ABG Hemoglobin ABG Oxyhemoglobin ABG Chloride ABG Glucose Oxyhemoglobin Sodium Potassium Chloride Carbon Dioxide BUN Creatinine Glucose POC Glucose 143 H 107 H Lactic Acid Calcium Phosphorus Magnesium AST ALT Lactate Dehydrogenase Total Bilirubin Direct Bilirubin CK-MB (CK-2) C-Reactive Protein NT-Pro-B Natriuret Pep Total Protein Albumin Arterial Blood Glucose Urine WBC (Auto) Urine Creatinine 12/02/19 12/02/19 12/02/19 05:16 06:03 11:52 WBC RBC Hgb Hct MCHC RDW MCV MCH Lymph % (Auto) [place] % (Auto) [place] # Eos # Lymph # (Auto) [place] # (Auto) Eos # (Auto) Seg Neutrophils % Seg Neuts % (Manual) Baso # (Auto) Lymphocytes % (Manual) Monocytes % (Manual) Eosinophils % (Manual) Basophils % (Manual) Seg Neutrophils # Seg Neutrophils # Man Lymphocytes # (Manual) Monocytes # (Manual) Eosinophils # (Manual) Nucleated RBC % Basophils # (Manual) PT INR APTT Heparin Anti-Xa Level ABG pH POC ABG pO2 ABG pO2 ABG HCO3 ABG O2 Saturation ABG Base Excess POC ABG pCO2 ABG Hemoglobin ABG Oxyhemoglobin ABG Chloride ABG Glucose Oxyhemoglobin Sodium 146 H Potassium Chloride Carbon Dioxide BUN 28 H Creatinine Glucose 123 H POC Glucose 110 H 152 H Lactic Acid Calcium Phosphorus Magnesium AST ALT Lactate Dehydrogenase Total Bilirubin Direct Bilirubin CK-MB (CK-2) C-Reactive Protein NT-Pro-B Natriuret Pep Total Protein Albumin Arterial Blood Glucose Urine WBC (Auto) Urine Creatinine 12/02/19 12/02/19 12/02/19 12:58 17:58 23:36 WBC RBC Hgb Hct MCHC RDW MCV MCH Lymph % (Auto) [place] % (Auto) [place] # Eos # Lymph # (Auto) [place] # (Auto) Eos # (Auto) Seg Neutrophils % Seg Neuts % (Manual) Baso # (Auto) Lymphocytes % (Manual) Monocytes % (Manual) Eosinophils % (Manual) Basophils % (Manual) Seg Neutrophils # Seg Neutrophils # Man Lymphocytes # (Manual) Monocytes # (Manual) Eosinophils # (Manual) Nucleated RBC % Basophils # (Manual) PT INR APTT Heparin Anti-Xa Level ABG pH POC ABG pO2 78.1 L ABG pO2 ABG HCO3 ABG O2 Saturation ABG Base Excess POC ABG pCO2 ABG Hemoglobin ABG Oxyhemoglobin ABG Chloride ABG Glucose Oxyhemoglobin Sodium Potassium Chloride Carbon Dioxide BUN Creatinine Glucose POC Glucose 120 H 123 H Lactic Acid Calcium Phosphorus Magnesium AST ALT Lactate Dehydrogenase Total Bilirubin Direct Bilirubin CK-MB (CK-2) C-Reactive Protein NT-Pro-B Natriuret Pep Total Protein Albumin Arterial Blood Glucose Urine WBC (Auto) Urine Creatinine 12/03/19 12/03/19 12/03/19 06:03 06:14 11:46 WBC RBC Hgb Hct MCHC RDW MCV MCH Lymph % (Auto) [place] % (Auto) [place] # Eos # Lymph # (Auto) [place] # (Auto) Eos # (Auto) Seg Neutrophils % Seg Neuts % (Manual) Baso # (Auto) Lymphocytes % (Manual) Monocytes % (Manual) Eosinophils % (Manual) Basophils % (Manual) Seg Neutrophils # Seg Neutrophils # Man Lymphocytes # (Manual) Monocytes # (Manual) Eosinophils # (Manual) Nucleated RBC % Basophils # (Manual) PT INR APTT Heparin Anti-Xa Level ABG pH POC ABG pO2 ABG pO2 ABG HCO3 ABG O2 Saturation ABG Base Excess POC ABG pCO2 ABG Hemoglobin ABG Oxyhemoglobin ABG Chloride ABG Glucose Oxyhemoglobin Sodium Potassium Chloride Carbon Dioxide BUN Creatinine Glucose POC Glucose 142 H 130 H Lactic Acid Calcium Phosphorus Magnesium AST ALT Lactate Dehydrogenase Total Bilirubin Direct Bilirubin CK-MB (CK-2) C-Reactive Protein NT-Pro-B Natriuret Pep Total Protein Albumin Arterial Blood Glucose Urine WBC (Auto) 8.0 H Urine Creatinine 12/03/19 12/03/19 12/04/19 15:50 17:39 00:04 WBC RBC Hgb Hct MCHC RDW MCV MCH Lymph % (Auto) [place] % (Auto) [place] # Eos # Lymph # (Auto) [place] # (Auto) Eos # (Auto) Seg Neutrophils % Seg Neuts % (Manual) Baso # (Auto) Lymphocytes % (Manual) Monocytes % (Manual) Eosinophils % (Manual) Basophils % (Manual) Seg Neutrophils # Seg Neutrophils # Man Lymphocytes # (Manual) Monocytes # (Manual) Eosinophils # (Manual) Nucleated RBC % Basophils # (Manual) PT INR APTT Heparin Anti-Xa Level ABG pH POC ABG pO2 ABG pO2 ABG HCO3 ABG O2 Saturation ABG Base Excess POC ABG pCO2 ABG Hemoglobin ABG Oxyhemoglobin ABG Chloride ABG Glucose Oxyhemoglobin Sodium Potassium Chloride Carbon Dioxide BUN Creatinine Glucose POC Glucose 146 H 133 H Lactic Acid Calcium Phosphorus 2.40 L Magnesium AST ALT Lactate Dehydrogenase Total Bilirubin Direct Bilirubin CK-MB (CK-2) C-Reactive Protein NT-Pro-B Natriuret Pep Total Protein Albumin Arterial Blood Glucose Urine WBC (Auto) Urine Creatinine 12/04/19 12/04/19 12/04/19 03:58 03:58 05:22 WBC 12.5 H RBC Hgb 11.2 L Hct 35.2 L MCHC RDW 16.0 H MCV MCH Lymph % (Auto) [place] % (Auto) 9.6 H [place] # 1.2 H Eos # 0.5 H Lymph # (Auto) [place] # (Auto) Eos # (Auto) Seg Neutrophils % Seg Neuts % (Manual) Baso # (Auto) Lymphocytes % (Manual) Monocytes % (Manual) Eosinophils % (Manual) Basophils % (Manual) Seg Neutrophils # 8.6 H Seg Neutrophils # Man Lymphocytes # (Manual) Monocytes # (Manual) Eosinophils # (Manual) Nucleated RBC % Basophils # (Manual) PT INR APTT Heparin Anti-Xa Level ABG pH POC ABG pO2 ABG pO2 ABG HCO3 ABG O2 Saturation ABG Base Excess POC ABG pCO2 ABG Hemoglobin ABG Oxyhemoglobin ABG Chloride ABG Glucose Oxyhemoglobin Sodium 146 H Potassium Chloride 108.6 H Carbon Dioxide BUN 30 H Creatinine 0.7 L Glucose 121 H POC Glucose 132 H Lactic Acid Calcium Phosphorus Magnesium AST ALT Lactate Dehydrogenase Total Bilirubin Direct Bilirubin CK-MB (CK-2) C-Reactive Protein NT-Pro-B Natriuret Pep Total Protein Albumin Arterial Blood Glucose Urine WBC (Auto) Urine Creatinine 12/04/19 12/04/19 12/05/19 13:26 18:43 00:19 WBC RBC Hgb Hct MCHC RDW MCV MCH Lymph % (Auto) [place] % (Auto) [place] # Eos # Lymph # (Auto) [place] # (Auto) Eos # (Auto) Seg Neutrophils % Seg Neuts % (Manual) Baso # (Auto) Lymphocytes % (Manual) Monocytes % (Manual) Eosinophils % (Manual) Basophils % (Manual) Seg Neutrophils # Seg Neutrophils # Man Lymphocytes # (Manual) Monocytes # (Manual) Eosinophils # (Manual) Nucleated RBC % Basophils # (Manual) PT INR APTT Heparin Anti-Xa Level ABG pH POC ABG pO2 ABG pO2 ABG HCO3 ABG O2 Saturation ABG Base Excess POC ABG pCO2 ABG Hemoglobin ABG Oxyhemoglobin ABG Chloride ABG Glucose Oxyhemoglobin Sodium Potassium Chloride Carbon Dioxide BUN Creatinine Glucose POC Glucose 185 H 156 H 150 H Lactic Acid Calcium Phosphorus Magnesium AST ALT Lactate Dehydrogenase Total Bilirubin Direct Bilirubin CK-MB (CK-2) C-Reactive Protein NT-Pro-B Natriuret Pep Total Protein Albumin Arterial Blood Glucose Urine WBC (Auto) Urine Creatinine 12/05/19 12/05/19 12/05/19 03:37 03:37 05:14 WBC 16.3 H RBC Hgb 11.4 L Hct MCHC RDW 15.6 H MCV MCH Lymph % (Auto) 9.9 L [place] % (Auto) 9.7 H [place] # 1.6 H Eos # Lymph # (Auto) [place] # (Auto) Eos # (Auto) Seg Neutrophils % 78.0 H Seg Neuts % (Manual) Baso # (Auto) Lymphocytes % (Manual) Monocytes % (Manual) Eosinophils % (Manual) Basophils % (Manual) Seg Neutrophils # 12.7 H Seg Neutrophils # Man Lymphocytes # (Manual) Monocytes # (Manual) Eosinophils # (Manual) Nucleated RBC % Basophils # (Manual) PT INR APTT Heparin Anti-Xa Level ABG pH POC ABG pO2 ABG pO2 ABG HCO3 ABG O2 Saturation ABG Base Excess POC ABG pCO2 ABG Hemoglobin ABG Oxyhemoglobin ABG Chloride ABG Glucose Oxyhemoglobin Sodium 146 H Potassium Chloride 107.2 H Carbon Dioxide BUN 27 H Creatinine 0.7 L Glucose 171 H POC Glucose 168 H Lactic Acid Calcium Phosphorus Magnesium AST ALT Lactate Dehydrogenase Total Bilirubin Direct Bilirubin CK-MB (CK-2) C-Reactive Protein NT-Pro-B Natriuret Pep Total Protein Albumin Arterial Blood Glucose Urine WBC (Auto) Urine Creatinine 12/05/19 12/05/19 12/05/19 12:31 18:10 23:58 WBC RBC Hgb Hct MCHC RDW MCV MCH Lymph % (Auto) [place] % (Auto) [place] # Eos # Lymph # (Auto) [place] # (Auto) Eos # (Auto) Seg Neutrophils % Seg Neuts % (Manual) Baso # (Auto) Lymphocytes % (Manual) Monocytes % (Manual) Eosinophils % (Manual) Basophils % (Manual) Seg Neutrophils # Seg Neutrophils # Man Lymphocytes # (Manual) Monocytes # (Manual) Eosinophils # (Manual) Nucleated RBC % Basophils # (Manual) PT INR APTT Heparin Anti-Xa Level ABG pH POC ABG pO2 ABG pO2 ABG HCO3 ABG O2 Saturation ABG Base Excess POC ABG pCO2 ABG Hemoglobin ABG Oxyhemoglobin ABG Chloride ABG Glucose Oxyhemoglobin Sodium Potassium Chloride Carbon Dioxide BUN Creatinine Glucose POC Glucose 159 H 198 H 115 H Lactic Acid Calcium Phosphorus Magnesium AST ALT Lactate Dehydrogenase Total Bilirubin Direct Bilirubin CK-MB (CK-2) C-Reactive Protein NT-Pro-B Natriuret Pep Total Protein Albumin Arterial Blood Glucose Urine WBC (Auto) Urine Creatinine 12/06/19 12/06/19 12/06/19 05:24 05:24 05:25 WBC 14.9 H RBC Hgb 10.8 L Hct 34.0 L MCHC RDW 15.6 H MCV MCH Lymph % (Auto) 10.7 L [place] % (Auto) 8.3 H [place] # 1.2 H Eos # Lymph # (Auto) [place] # (Auto) Eos # (Auto) Seg Neutrophils % 78.7 H Seg Neuts % (Manual) Baso # (Auto) Lymphocytes % (Manual) Monocytes % (Manual) Eosinophils % (Manual) Basophils % (Manual) Seg Neutrophils # 11.7 H Seg Neutrophils # Man Lymphocytes # (Manual) Monocytes # (Manual) Eosinophils # (Manual) Nucleated RBC % Basophils # (Manual) PT INR APTT Heparin Anti-Xa Level ABG pH POC ABG pO2 ABG pO2 ABG HCO3 ABG O2 Saturation ABG Base Excess POC ABG pCO2 ABG Hemoglobin ABG Oxyhemoglobin ABG Chloride ABG Glucose Oxyhemoglobin Sodium 148 H Potassium 5.1 H Chloride 107.6 H Carbon Dioxide BUN 27 H Creatinine 0.7 L Glucose 155 H POC Glucose 157 H Lactic Acid Calcium Phosphorus Magnesium AST ALT Lactate Dehydrogenase Total Bilirubin Direct Bilirubin CK-MB (CK-2) C-Reactive Protein NT-Pro-B Natriuret Pep Total Protein Albumin Arterial Blood Glucose Urine WBC (Auto) Urine Creatinine 12/07/19 12/07/19 12/07/19 00:13 05:34 11:33 WBC RBC Hgb Hct MCHC RDW MCV MCH Lymph % (Auto) [place] % (Auto) [place] # Eos # Lymph # (Auto) [place] # (Auto) Eos # (Auto) Seg Neutrophils % Seg Neuts % (Manual) Baso # (Auto) Lymphocytes % (Manual) Monocytes % (Manual) Eosinophils % (Manual) Basophils % (Manual) Seg Neutrophils # Seg Neutrophils # Man Lymphocytes # (Manual) Monocytes # (Manual) Eosinophils # (Manual) Nucleated RBC % Basophils # (Manual) PT INR APTT Heparin Anti-Xa Level ABG pH POC ABG pO2 ABG pO2 ABG HCO3 ABG O2 Saturation ABG Base Excess POC ABG pCO2 ABG Hemoglobin ABG Oxyhemoglobin ABG Chloride ABG Glucose Oxyhemoglobin Sodium Potassium Chloride Carbon Dioxide BUN Creatinine Glucose POC Glucose 142 H 111 H 169 H Lactic Acid Calcium Phosphorus Magnesium AST ALT Lactate Dehydrogenase Total Bilirubin Direct Bilirubin CK-MB (CK-2) C-Reactive Protein NT-Pro-B Natriuret Pep Total Protein Albumin Arterial Blood Glucose Urine WBC (Auto) Urine Creatinine 12/07/19 12/07/19 12/07/19 12:41 13:25 18:19 WBC 12.4 H RBC 3.53 L Hgb 10.2 L Hct 32.1 L MCHC RDW 15.3 H MCV MCH Lymph % (Auto) 10.6 L [place] % (Auto) 7.8 H [place] # 1.0 H Eos # Lymph # (Auto) [place] # (Auto) Eos # (Auto) Seg Neutrophils % 77.6 H Seg Neuts % (Manual) Baso # (Auto) Lymphocytes % (Manual) Monocytes % (Manual) Eosinophils % (Manual) Basophils % (Manual) Seg Neutrophils # 9.6 H Seg Neutrophils # Man Lymphocytes # (Manual) Monocytes # (Manual) Eosinophils # (Manual) Nucleated RBC % Basophils # (Manual) PT INR APTT Heparin Anti-Xa Level ABG pH POC ABG pO2 ABG pO2 ABG HCO3 ABG O2 Saturation ABG Base Excess POC ABG pCO2 ABG Hemoglobin ABG Oxyhemoglobin ABG Chloride ABG Glucose Oxyhemoglobin Sodium 149 H Potassium Chloride 108.4 H Carbon Dioxide BUN 26 H Creatinine 0.6 L Glucose 149 H POC Glucose 164 H Lactic Acid Calcium Phosphorus Magnesium 2.60 H AST 121 H ALT 145 H Lactate Dehydrogenase Total Bilirubin Direct Bilirubin CK-MB (CK-2) C-Reactive Protein NT-Pro-B Natriuret Pep Total Protein Albumin 2.6 L Arterial Blood Glucose Urine WBC (Auto) Urine Creatinine 12/07/19 12/08/19 12/08/19 22:25 00:02 03:55 WBC 13.3 H RBC 3.40 L Hgb 9.7 L Hct 30.8 L MCHC 31 L RDW 15.5 H MCV MCH Lymph % (Auto) [place] % (Auto) 8.1 H [place] # 1.1 H Eos # Lymph # (Auto) [place] # (Auto) Eos # (Auto) Seg Neutrophils % 73.0 H Seg Neuts % (Manual) Baso # (Auto) Lymphocytes % (Manual) Monocytes % (Manual) Eosinophils % (Manual) Basophils % (Manual) Seg Neutrophils # 9.7 H Seg Neutrophils # Man Lymphocytes # (Manual) Monocytes # (Manual) Eosinophils # (Manual) Nucleated RBC % Basophils # (Manual) PT INR APTT Heparin Anti-Xa Level 0.12 L ABG pH POC ABG pO2 ABG pO2 ABG HCO3 ABG O2 Saturation ABG Base Excess POC ABG pCO2 ABG Hemoglobin ABG Oxyhemoglobin ABG Chloride ABG Glucose Oxyhemoglobin Sodium Potassium Chloride Carbon Dioxide BUN Creatinine Glucose POC Glucose 151 H Lactic Acid Calcium Phosphorus Magnesium AST ALT Lactate Dehydrogenase Total Bilirubin Direct Bilirubin CK-MB (CK-2) C-Reactive Protein NT-Pro-B Natriuret Pep Total Protein Albumin Arterial Blood Glucose Urine WBC (Auto) Urine Creatinine 12/08/19 12/08/19 12/08/19 03:55 05:21 06:01 WBC RBC Hgb Hct MCHC RDW MCV MCH Lymph % (Auto) [place] % (Auto) [place] # Eos # Lymph # (Auto) [place] # (Auto) Eos # (Auto) Seg Neutrophils % Seg Neuts % (Manual) Baso # (Auto) Lymphocytes % (Manual) Monocytes % (Manual) Eosinophils % (Manual) Basophils % (Manual) Seg Neutrophils # Seg Neutrophils # Man Lymphocytes # (Manual) Monocytes # (Manual) Eosinophils # (Manual) Nucleated RBC % Basophils # (Manual) PT INR APTT Heparin Anti-Xa Level 0.20 L ABG pH POC ABG pO2 ABG pO2 ABG HCO3 ABG O2 Saturation ABG Base Excess POC ABG pCO2 ABG Hemoglobin ABG Oxyhemoglobin ABG Chloride ABG Glucose Oxyhemoglobin Sodium 149 H Potassium Chloride 108.0 H Carbon Dioxide BUN 28 H Creatinine 0.6 L Glucose 144 H POC Glucose 143 H Lactic Acid Calcium Phosphorus Magnesium AST 98 H ALT 145 H Lactate Dehydrogenase Total Bilirubin Direct Bilirubin CK-MB (CK-2) C-Reactive Protein NT-Pro-B Natriuret Pep Total Protein 6.0 L Albumin 2.4 L Arterial Blood Glucose Urine WBC (Auto) Urine Creatinine 12/08/19 12/08/19 12/08/19 12:08 18:11 23:53 WBC RBC Hgb Hct MCHC RDW MCV MCH Lymph % (Auto) [place] % (Auto) [place] # Eos # Lymph # (Auto) [place] # (Auto) Eos # (Auto) Seg Neutrophils % Seg Neuts % (Manual) Baso # (Auto) Lymphocytes % (Manual) Monocytes % (Manual) Eosinophils % (Manual) Basophils % (Manual) Seg Neutrophils # Seg Neutrophils # Man Lymphocytes # (Manual) Monocytes # (Manual) Eosinophils # (Manual) Nucleated RBC % Basophils # (Manual) PT INR APTT Heparin Anti-Xa Level ABG pH POC ABG pO2 ABG pO2 ABG HCO3 ABG O2 Saturation ABG Base Excess POC ABG pCO2 ABG Hemoglobin ABG Oxyhemoglobin ABG Chloride ABG Glucose Oxyhemoglobin Sodium Potassium Chloride Carbon Dioxide BUN Creatinine Glucose POC Glucose 172 H 122 H 162 H Lactic Acid Calcium Phosphorus Magnesium AST ALT Lactate Dehydrogenase Total Bilirubin Direct Bilirubin CK-MB (CK-2) C-Reactive Protein NT-Pro-B Natriuret Pep Total Protein Albumin Arterial Blood Glucose Urine WBC (Auto) Urine Creatinine 12/09/19 12/09/19 12/09/19 04:03 04:03 05:53 WBC RBC Hgb 9.1 L Hct 28.9 L MCHC RDW MCV MCH Lymph % (Auto) [place] % (Auto) [place] # Eos # Lymph # (Auto) [place] # (Auto) Eos # (Auto) Seg Neutrophils % Seg Neuts % (Manual) Baso # (Auto) Lymphocytes % (Manual) Monocytes % (Manual) Eosinophils % (Manual) Basophils % (Manual) Seg Neutrophils # Seg Neutrophils # Man Lymphocytes # (Manual) Monocytes # (Manual) Eosinophils # (Manual) Nucleated RBC % Basophils # (Manual) PT INR APTT Heparin Anti-Xa Level 0.15 L ABG pH POC ABG pO2 ABG pO2 ABG HCO3 ABG O2 Saturation ABG Base Excess POC ABG pCO2 ABG Hemoglobin ABG Oxyhemoglobin ABG Chloride ABG Glucose Oxyhemoglobin Sodium Potassium Chloride Carbon Dioxide BUN Creatinine Glucose POC Glucose 124 H Lactic Acid Calcium Phosphorus Magnesium AST ALT Lactate Dehydrogenase Total Bilirubin Direct Bilirubin CK-MB (CK-2) C-Reactive Protein NT-Pro-B Natriuret Pep Total Protein Albumin Arterial Blood Glucose Urine WBC (Auto) Urine Creatinine 12/09/19 12/09/1920 09:43 12:41 00:13 WBC RBC Hgb Hct MCHC RDW MCV MCH Lymph % (Auto) [place] % (Auto) [place] # Eos # Lymph # (Auto) [place] # (Auto) Eos # (Auto) Seg Neutrophils % Seg Neuts % (Manual) Baso # (Auto) Lymphocytes % (Manual) Monocytes % (Manual) Eosinophils % (Manual) Basophils % (Manual) Seg Neutrophils # Seg Neutrophils # Man Lymphocytes # (Manual) Monocytes # (Manual) Eosinophils # (Manual) Nucleated RBC % Basophils # (Manual) PT INR APTT Heparin Anti-Xa Level ABG pH POC ABG pO2 ABG pO2 ABG HCO3 ABG O2 Saturation ABG Base Excess POC ABG pCO2 ABG Hemoglobin ABG Oxyhemoglobin ABG Chloride ABG Glucose Oxyhemoglobin Sodium Potassium Chloride Carbon Dioxide BUN 25 H Creatinine 0.6 L Glucose 131 H POC Glucose 109 H 120 H Lactic Acid Calcium Phosphorus Magnesium AST ALT Lactate Dehydrogenase Total Bilirubin Direct Bilirubin CK-MB (CK-2) C-Reactive Protein NT-Pro-B Natriuret Pep Total Protein Albumin Arterial Blood Glucose Urine WBC (Auto) Urine Creatinine 12/10/19 12/10/19 12/10/19 04:14 04:14 12:00 WBC 13.3 H RBC 3.34 L Hgb 9.6 L Hct 30.4 L MCHC RDW 15.4 H MCV MCH Lymph % (Auto) [place] % (Auto) [place] # Eos # Lymph # (Auto) [place] # (Auto) Eos # (Auto) Seg Neutrophils % Seg Neuts % (Manual) 75.0 H Baso # (Auto) Lymphocytes % (Manual) 13.0 L Monocytes % (Manual) 8.0 H Eosinophils % (Manual) Basophils % (Manual) 2.0 H Seg Neutrophils # Seg Neutrophils # Man 10.0 H Lymphocytes # (Manual) Monocytes # (Manual) 1.1 H Eosinophils # (Manual) Nucleated RBC % Basophils # (Manual) 0.3 H PT INR APTT Heparin Anti-Xa Level ABG pH POC ABG pO2 ABG pO2 ABG HCO3 ABG O2 Saturation ABG Base Excess POC ABG pCO2 ABG Hemoglobin ABG Oxyhemoglobin ABG Chloride ABG Glucose Oxyhemoglobin Sodium 147 H Potassium Chloride 108.3 H Carbon Dioxide BUN 21 H Creatinine 0.6 L Glucose 104 H POC Glucose 133 H Lactic Acid Calcium Phosphorus Magnesium AST ALT Lactate Dehydrogenase Total Bilirubin Direct Bilirubin CK-MB (CK-2) C-Reactive Protein NT-Pro-B Natriuret Pep Total Protein Albumin Arterial Blood Glucose Urine WBC (Auto) Urine Creatinine 12/10/19 12/10/19 12/11/19 18:44 21:20 00:08 WBC 14.9 H RBC 3.36 L Hgb 9.6 L Hct 30.5 L MCHC RDW 15.4 H MCV MCH Lymph % (Auto) [place] % (Auto) [place] # Eos # Lymph # (Auto) [place] # (Auto) Eos # (Auto) Seg Neutrophils % Seg Neuts % (Manual) Baso # (Auto) Lymphocytes % (Manual) Monocytes % (Manual) Eosinophils % (Manual) Basophils % (Manual) Seg Neutrophils # Seg Neutrophils # Man Lymphocytes # (Manual) Monocytes # (Manual) Eosinophils # (Manual) Nucleated RBC % Basophils # (Manual) PT INR APTT Heparin Anti-Xa Level ABG pH POC ABG pO2 ABG pO2 ABG HCO3 ABG O2 Saturation ABG Base Excess POC ABG pCO2 ABG Hemoglobin ABG Oxyhemoglobin ABG Chloride ABG Glucose Oxyhemoglobin Sodium Potassium Chloride Carbon Dioxide BUN Creatinine Glucose POC Glucose 119 H 134 H Lactic Acid Calcium Phosphorus Magnesium AST ALT Lactate Dehydrogenase Total Bilirubin Direct Bilirubin CK-MB (CK-2) C-Reactive Protein NT-Pro-B Natriuret Pep Total Protein Albumin Arterial Blood Glucose Urine WBC (Auto) Urine Creatinine 12/11/19 12/11/19 12/11/19 03:54 07:28 08:36 WBC 11.9 H RBC 3.25 L Hgb 9.6 L Hct 29.2 L MCHC RDW 15.7 H MCV MCH Lymph % (Auto) [place] % (Auto) [place] # Eos # Lymph # (Auto) [place] # (Auto) Eos # (Auto) Seg Neutrophils % Seg Neuts % (Manual) Baso # (Auto) Lymphocytes % (Manual) Monocytes % (Manual) Eosinophils % (Manual) Basophils % (Manual) Seg Neutrophils # Seg Neutrophils # Man Lymphocytes # (Manual) Monocytes # (Manual) Eosinophils # (Manual) Nucleated RBC % Basophils # (Manual) PT INR APTT Heparin Anti-Xa Level 0.10 L 0.16 L ABG pH POC ABG pO2 ABG pO2 ABG HCO3 ABG O2 Saturation ABG Base Excess POC ABG pCO2 ABG Hemoglobin ABG Oxyhemoglobin ABG Chloride ABG Glucose Oxyhemoglobin Sodium Potassium Chloride Carbon Dioxide BUN Creatinine Glucose POC Glucose Lactic Acid Calcium Phosphorus Magnesium AST ALT Lactate Dehydrogenase Total Bilirubin Direct Bilirubin CK-MB (CK-2) C-Reactive Protein NT-Pro-B Natriuret Pep Total Protein Albumin Arterial Blood Glucose Urine WBC (Auto) Urine Creatinine 12/11/19 12/11/19 12/11/19 08:36 11:45 17:15 WBC RBC Hgb Hct MCHC RDW MCV MCH Lymph % (Auto) [place] % (Auto) [place] # Eos # Lymph # (Auto) [place] # (Auto) Eos # (Auto) Seg Neutrophils % Seg Neuts % (Manual) Baso # (Auto) Lymphocytes % (Manual) Monocytes % (Manual) Eosinophils % (Manual) Basophils % (Manual) Seg Neutrophils # Seg Neutrophils # Man Lymphocytes # (Manual) Monocytes # (Manual) Eosinophils # (Manual) Nucleated RBC % Basophils # (Manual) PT INR APTT Heparin Anti-Xa Level ABG pH POC ABG pO2 ABG pO2 ABG HCO3 ABG O2 Saturation ABG Base Excess POC ABG pCO2 ABG Hemoglobin ABG Oxyhemoglobin ABG Chloride ABG Glucose Oxyhemoglobin Sodium Potassium Chloride Carbon Dioxide BUN Creatinine 0.5 L Glucose 128 H POC Glucose 136 H 109 H Lactic Acid Calcium Phosphorus Magnesium AST ALT Lactate Dehydrogenase Total Bilirubin Direct Bilirubin CK-MB (CK-2) C-Reactive Protein NT-Pro-B Natriuret Pep Total Protein Albumin Arterial Blood Glucose Urine WBC (Auto) Urine Creatinine 12/12/19 12/12/19 12/12/19 00:03 05:53 05:53 WBC RBC Hgb 8.8 L Hct 27.6 L MCHC RDW MCV MCH Lymph % (Auto) [place] % (Auto) [place] # Eos # Lymph # (Auto) [place] # (Auto) Eos # (Auto) Seg Neutrophils % Seg Neuts % (Manual) Baso # (Auto) Lymphocytes % (Manual) Monocytes % (Manual) Eosinophils % (Manual) Basophils % (Manual) Seg Neutrophils # Seg Neutrophils # Man Lymphocytes # (Manual) Monocytes # (Manual) Eosinophils # (Manual) Nucleated RBC % Basophils # (Manual) PT INR APTT Heparin Anti-Xa Level 0.22 L ABG pH POC ABG pO2 ABG pO2 ABG HCO3 ABG O2 Saturation ABG Base Excess POC ABG pCO2 ABG Hemoglobin ABG Oxyhemoglobin ABG Chloride ABG Glucose Oxyhemoglobin Sodium Potassium Chloride Carbon Dioxide BUN Creatinine Glucose POC Glucose 116 H Lactic Acid Calcium Phosphorus Magnesium AST ALT Lactate Dehydrogenase Total Bilirubin Direct Bilirubin CK-MB (CK-2) C-Reactive Protein NT-Pro-B Natriuret Pep Total Protein Albumin Arterial Blood Glucose Urine WBC (Auto) Urine Creatinine 12/12/19 12/12/19 12/12/19 09:38 12:18 17:44 WBC RBC Hgb Hct MCHC RDW MCV MCH Lymph % (Auto) [place] % (Auto) [place] # Eos # Lymph # (Auto) [place] # (Auto) Eos # (Auto) Seg Neutrophils % Seg Neuts % (Manual) Baso # (Auto) Lymphocytes % (Manual) Monocytes % (Manual) Eosinophils % (Manual) Basophils % (Manual) Seg Neutrophils # Seg Neutrophils # Man Lymphocytes # (Manual) Monocytes # (Manual) Eosinophils # (Manual) Nucleated RBC % Basophils # (Manual) PT INR APTT Heparin Anti-Xa Level ABG pH POC ABG pO2 ABG pO2 ABG HCO3 ABG O2 Saturation ABG Base Excess POC ABG pCO2 ABG Hemoglobin ABG Oxyhemoglobin ABG Chloride ABG Glucose Oxyhemoglobin Sodium Potassium Chloride Carbon Dioxide BUN Creatinine Glucose POC Glucose 115 H 146 H 146 H Lactic Acid Calcium Phosphorus Magnesium AST ALT Lactate Dehydrogenase Total Bilirubin Direct Bilirubin CK-MB (CK-2) C-Reactive Protein NT-Pro-B Natriuret Pep Total Protein Albumin Arterial Blood Glucose Urine WBC (Auto) Urine Creatinine 12/12/19 12/13/19 12/13/19 23:33 05:32 05:32 WBC 13.1 H RBC 3.27 L Hgb 9.5 L Hct 29.3 L MCHC RDW 15.6 H MCV MCH Lymph % (Auto) [place] % (Auto) [place] # Eos # Lymph # (Auto) [place] # (Auto) Eos # (Auto) Seg Neutrophils % Seg Neuts % (Manual) 74.0 H Baso # (Auto) Lymphocytes % (Manual) 8.0 L Monocytes % (Manual) 9.0 H Eosinophils % (Manual) 5.0 H Basophils % (Manual) Seg Neutrophils # Seg Neutrophils # Man 9.7 H Lymphocytes # (Manual) 1.0 L Monocytes # (Manual) 1.2 H Eosinophils # (Manual) 0.7 H Nucleated RBC % Basophils # (Manual) PT INR APTT Heparin Anti-Xa Level 0.20 L ABG pH POC ABG pO2 ABG pO2 ABG HCO3 ABG O2 Saturation ABG Base Excess POC ABG pCO2 ABG Hemoglobin ABG Oxyhemoglobin ABG Chloride ABG Glucose Oxyhemoglobin Sodium Potassium Chloride Carbon Dioxide BUN Creatinine Glucose POC Glucose 126 H Lactic Acid Calcium Phosphorus Magnesium AST ALT Lactate Dehydrogenase Total Bilirubin Direct Bilirubin CK-MB (CK-2) C-Reactive Protein NT-Pro-B Natriuret Pep Total Protein Albumin Arterial Blood Glucose Urine WBC (Auto) Urine Creatinine 12/13/19 12/13/19 12/13/19 05:32 05:46 11:57 WBC RBC Hgb Hct MCHC RDW MCV MCH Lymph % (Auto) [place] % (Auto) [place] # Eos # Lymph # (Auto) [place] # (Auto) Eos # (Auto) Seg Neutrophils % Seg Neuts % (Manual) Baso # (Auto) Lymphocytes % (Manual) Monocytes % (Manual) Eosinophils % (Manual) Basophils % (Manual) Seg Neutrophils # Seg Neutrophils # Man Lymphocytes # (Manual) Monocytes # (Manual) Eosinophils # (Manual) Nucleated RBC % Basophils # (Manual) PT INR APTT Heparin Anti-Xa Level ABG pH POC ABG pO2 ABG pO2 ABG HCO3 ABG O2 Saturation ABG Base Excess POC ABG pCO2 ABG Hemoglobin ABG Oxyhemoglobin ABG Chloride ABG Glucose Oxyhemoglobin Sodium Potassium Chloride Carbon Dioxide 31 H BUN Creatinine 0.6 L Glucose 114 H POC Glucose 118 H 133 H Lactic Acid Calcium Phosphorus Magnesium AST ALT Lactate Dehydrogenase Total Bilirubin Direct Bilirubin CK-MB (CK-2) C-Reactive Protein NT-Pro-B Natriuret Pep Total Protein Albumin Arterial Blood Glucose Urine WBC (Auto) Urine Creatinine 12/13/19 12/13/19 12/14/19 17:44 23:46 05:32 WBC RBC Hgb Hct MCHC RDW MCV MCH Lymph % (Auto) [place] % (Auto) [place] # Eos # Lymph # (Auto) [place] # (Auto) Eos # (Auto) Seg Neutrophils % Seg Neuts % (Manual) Baso # (Auto) Lymphocytes % (Manual) Monocytes % (Manual) Eosinophils % (Manual) Basophils % (Manual) Seg Neutrophils # Seg Neutrophils # Man Lymphocytes # (Manual) Monocytes # (Manual) Eosinophils # (Manual) Nucleated RBC % Basophils # (Manual) PT INR APTT Heparin Anti-Xa Level ABG pH POC ABG pO2 ABG pO2 ABG HCO3 ABG O2 Saturation ABG Base Excess POC ABG pCO2 ABG Hemoglobin ABG Oxyhemoglobin ABG Chloride ABG Glucose Oxyhemoglobin Sodium Potassium Chloride Carbon Dioxide BUN Creatinine Glucose POC Glucose 161 H 126 H 139 H Lactic Acid Calcium Phosphorus Magnesium AST ALT Lactate Dehydrogenase Total Bilirubin Direct Bilirubin CK-MB (CK-2) C-Reactive Protein NT-Pro-B Natriuret Pep Total Protein Albumin Arterial Blood Glucose Urine WBC (Auto) Urine Creatinine 12/14/19 12/14/19 12/14/19 06:03 06:03 09:37 WBC RBC Hgb 9.6 L Hct 30.4 L MCHC RDW MCV MCH Lymph % (Auto) [place] % (Auto) [place] # Eos # Lymph # (Auto) [place] # (Auto) Eos # (Auto) Seg Neutrophils % Seg Neuts % (Manual) Baso # (Auto) Lymphocytes % (Manual) Monocytes % (Manual) Eosinophils % (Manual) Basophils % (Manual) Seg Neutrophils # Seg Neutrophils # Man Lymphocytes # (Manual) Monocytes # (Manual) Eosinophils # (Manual) Nucleated RBC % Basophils # (Manual) PT INR APTT Heparin Anti-Xa Level 0.24 L ABG pH POC ABG pO2 ABG pO2 ABG HCO3 ABG O2 Saturation ABG Base Excess POC ABG pCO2 ABG Hemoglobin ABG Oxyhemoglobin ABG Chloride ABG Glucose Oxyhemoglobin Sodium Potassium Chloride Carbon Dioxide BUN Creatinine 0.6 L Glucose 162 H POC Glucose Lactic Acid Calcium Phosphorus Magnesium AST 71 H ALT 118 H Lactate Dehydrogenase Total Bilirubin Direct Bilirubin CK-MB (CK-2) C-Reactive Protein NT-Pro-B Natriuret Pep Total Protein 6.2 L Albumin 2.3 L Arterial Blood Glucose Urine WBC (Auto) Urine Creatinine 12/14/19 12/14/19 12/15/19 12:06 18:18 00:19 WBC RBC Hgb Hct MCHC RDW MCV MCH Lymph % (Auto) [place] % (Auto) [place] # Eos # Lymph # (Auto) [place] # (Auto) Eos # (Auto) Seg Neutrophils % Seg Neuts % (Manual) Baso # (Auto) Lymphocytes % (Manual) Monocytes % (Manual) Eosinophils % (Manual) Basophils % (Manual) Seg Neutrophils # Seg Neutrophils # Man Lymphocytes # (Manual) Monocytes # (Manual) Eosinophils # (Manual) Nucleated RBC % Basophils # (Manual) PT INR APTT Heparin Anti-Xa Level ABG pH POC ABG pO2 ABG pO2 ABG HCO3 ABG O2 Saturation ABG Base Excess POC ABG pCO2 ABG Hemoglobin ABG Oxyhemoglobin ABG Chloride ABG Glucose Oxyhemoglobin Sodium Potassium Chloride Carbon Dioxide BUN Creatinine Glucose POC Glucose 147 H 166 H 123 H Lactic Acid Calcium Phosphorus Magnesium AST ALT Lactate Dehydrogenase Total Bilirubin Direct Bilirubin CK-MB (CK-2) C-Reactive Protein NT-Pro-B Natriuret Pep Total Protein Albumin Arterial Blood Glucose Urine WBC (Auto) Urine Creatinine 12/15/19 12/15/19 12/15/19 05:28 05:29 05:29 WBC 14.9 H RBC 3.19 L Hgb 9.1 L Hct 28.7 L MCHC RDW 16.0 H MCV MCH Lymph % (Auto) [place] % (Auto) [place] # Eos # Lymph # (Auto) [place] # (Auto) Eos # (Auto) Seg Neutrophils % Seg Neuts % (Manual) Baso # (Auto) Lymphocytes % (Manual) Monocytes % (Manual) Eosinophils % (Manual) Basophils % (Manual) Seg Neutrophils # Seg Neutrophils # Man Lymphocytes # (Manual) Monocytes # (Manual) Eosinophils # (Manual) Nucleated RBC % Basophils # (Manual) PT INR APTT Heparin Anti-Xa Level 0.19 L ABG pH POC ABG pO2 ABG pO2 ABG HCO3 ABG O2 Saturation ABG Base Excess POC ABG pCO2 ABG Hemoglobin ABG Oxyhemoglobin ABG Chloride ABG Glucose Oxyhemoglobin Sodium Potassium Chloride Carbon Dioxide BUN Creatinine 0.6 L Glucose 110 H POC Glucose Lactic Acid Calcium Phosphorus Magnesium AST ALT Lactate Dehydrogenase Total Bilirubin Direct Bilirubin CK-MB (CK-2) C-Reactive Protein NT-Pro-B Natriuret Pep Total Protein Albumin Arterial Blood Glucose Urine WBC (Auto) Urine Creatinine 12/15/19 12/15/19 12/15/19 05:53 11:50 17:26 WBC RBC Hgb Hct MCHC RDW MCV MCH Lymph % (Auto) [place] % (Auto) [place] # Eos # Lymph # (Auto) [place] # (Auto) Eos # (Auto) Seg Neutrophils % Seg Neuts % (Manual) Baso # (Auto) Lymphocytes % (Manual) Monocytes % (Manual) Eosinophils % (Manual) Basophils % (Manual) Seg Neutrophils # Seg Neutrophils # Man Lymphocytes # (Manual) Monocytes # (Manual) Eosinophils # (Manual) Nucleated RBC % Basophils # (Manual) PT INR APTT Heparin Anti-Xa Level ABG pH POC ABG pO2 ABG pO2 ABG HCO3 ABG O2 Saturation ABG Base Excess POC ABG pCO2 ABG Hemoglobin ABG Oxyhemoglobin ABG Chloride ABG Glucose Oxyhemoglobin Sodium Potassium Chloride Carbon Dioxide BUN Creatinine Glucose POC Glucose 119 H 132 H 128 H Lactic Acid Calcium Phosphorus Magnesium AST ALT Lactate Dehydrogenase Total Bilirubin Direct Bilirubin CK-MB (CK-2) C-Reactive Protein NT-Pro-B Natriuret Pep Total Protein Albumin Arterial Blood Glucose Urine WBC (Auto) Urine Creatinine 12/15/19 12/16/19 12/16/19 23:11 05:30 05:46 WBC RBC Hgb 8.8 L Hct 27.9 L MCHC RDW MCV MCH Lymph % (Auto) [place] % (Auto) [place] # Eos # Lymph # (Auto) [place] # (Auto) Eos # (Auto) Seg Neutrophils % Seg Neuts % (Manual) Baso # (Auto) Lymphocytes % (Manual) Monocytes % (Manual) Eosinophils % (Manual) Basophils % (Manual) Seg Neutrophils # Seg Neutrophils # Man Lymphocytes # (Manual) Monocytes # (Manual) Eosinophils # (Manual) Nucleated RBC % Basophils # (Manual) PT INR APTT Heparin Anti-Xa Level ABG pH POC ABG pO2 ABG pO2 ABG HCO3 ABG O2 Saturation ABG Base Excess POC ABG pCO2 ABG Hemoglobin ABG Oxyhemoglobin ABG Chloride ABG Glucose Oxyhemoglobin Sodium Potassium Chloride Carbon Dioxide BUN Creatinine Glucose POC Glucose 150 H 134 H Lactic Acid Calcium Phosphorus Magnesium AST ALT Lactate Dehydrogenase Total Bilirubin Direct Bilirubin CK-MB (CK-2) C-Reactive Protein NT-Pro-B Natriuret Pep Total Protein Albumin Arterial Blood Glucose Urine WBC (Auto) Urine Creatinine 12/16/19 12/16/19 12/16/19 05:46 05:46 11:44 WBC RBC Hgb Hct MCHC RDW MCV MCH Lymph % (Auto) [place] % (Auto) [place] # Eos # Lymph # (Auto) [place] # (Auto) Eos # (Auto) Seg Neutrophils % Seg Neuts % (Manual) Baso # (Auto) Lymphocytes % (Manual) Monocytes % (Manual) Eosinophils % (Manual) Basophils % (Manual) Seg Neutrophils # Seg Neutrophils # Man Lymphocytes # (Manual) Monocytes # (Manual) Eosinophils # (Manual) Nucleated RBC % Basophils # (Manual) PT INR APTT Heparin Anti-Xa Level 0.20 L ABG pH POC ABG pO2 ABG pO2 ABG HCO3 ABG O2 Saturation ABG Base Excess POC ABG pCO2 ABG Hemoglobin ABG Oxyhemoglobin ABG Chloride ABG Glucose Oxyhemoglobin Sodium Potassium Chloride Carbon Dioxide 31 H BUN Creatinine 0.5 L Glucose 147 H POC Glucose 164 H Lactic Acid Calcium Phosphorus Magnesium AST ALT Lactate Dehydrogenase Total Bilirubin Direct Bilirubin CK-MB (CK-2) C-Reactive Protein NT-Pro-B Natriuret Pep Total Protein Albumin Arterial Blood Glucose Urine WBC (Auto) Urine Creatinine 12/16/19 12/16/19 12/17/19 17:17 23:49 05:30 WBC 13.9 H RBC 3.27 L Hgb 9.4 L Hct 29.2 L MCHC RDW 16.0 H MCV MCH Lymph % (Auto) [place] % (Auto) 8.8 H [place] # Eos # Lymph # (Auto) [place] # (Auto) 1.2 H Eos # (Auto) 0.5 H Seg Neutrophils % 70.5 H Seg Neuts % (Manual) Baso # (Auto) 0.2 H Lymphocytes % (Manual) Monocytes % (Manual) Eosinophils % (Manual) Basophils % (Manual) Seg Neutrophils # 9.8 H Seg Neutrophils # Man Lymphocytes # (Manual) Monocytes # (Manual) Eosinophils # (Manual) Nucleated RBC % Basophils # (Manual) PT INR APTT Heparin Anti-Xa Level ABG pH POC ABG pO2 ABG pO2 ABG HCO3 ABG O2 Saturation ABG Base Excess POC ABG pCO2 ABG Hemoglobin ABG Oxyhemoglobin ABG Chloride ABG Glucose Oxyhemoglobin Sodium Potassium Chloride Carbon Dioxide BUN Creatinine Glucose POC Glucose 162 H 144 H Lactic Acid Calcium Phosphorus Magnesium AST ALT Lactate Dehydrogenase Total Bilirubin Direct Bilirubin CK-MB (CK-2) C-Reactive Protein NT-Pro-B Natriuret Pep Total Protein Albumin Arterial Blood Glucose Urine WBC (Auto) Urine Creatinine 12/17/19 12/17/19 12/17/19 05:30 06:06 11:50 WBC RBC Hgb Hct MCHC RDW MCV MCH Lymph % (Auto) [place] % (Auto) [place] # Eos # Lymph # (Auto) [place] # (Auto) Eos # (Auto) Seg Neutrophils % Seg Neuts % (Manual) Baso # (Auto) Lymphocytes % (Manual) Monocytes % (Manual) Eosinophils % (Manual) Basophils % (Manual) Seg Neutrophils # Seg Neutrophils # Man Lymphocytes # (Manual) Monocytes # (Manual) Eosinophils # (Manual) Nucleated RBC % Basophils # (Manual) PT INR APTT Heparin Anti-Xa Level ABG pH POC ABG pO2 ABG pO2 ABG HCO3 ABG O2 Saturation ABG Base Excess POC ABG pCO2 ABG Hemoglobin ABG Oxyhemoglobin ABG Chloride ABG Glucose Oxyhemoglobin Sodium Potassium Chloride 97.4 L Carbon Dioxide 32 H BUN Creatinine 0.5 L Glucose 135 H POC Glucose 151 H 140 H Lactic Acid Calcium Phosphorus Magnesium AST ALT Lactate Dehydrogenase Total Bilirubin Direct Bilirubin CK-MB (CK-2) C-Reactive Protein NT-Pro-B Natriuret Pep Total Protein Albumin Arterial Blood Glucose Urine WBC (Auto) Urine Creatinine 12/17/19 12/17/19 12/18/19 17:50 23:46 05:17 WBC RBC Hgb 8.8 L Hct 28.0 L MCHC RDW MCV MCH Lymph % (Auto) [place] % (Auto) [place] # Eos # Lymph # (Auto) [place] # (Auto) Eos # (Auto) Seg Neutrophils % Seg Neuts % (Manual) Baso # (Auto) Lymphocytes % (Manual) Monocytes % (Manual) Eosinophils % (Manual) Basophils % (Manual) Seg Neutrophils # Seg Neutrophils # Man Lymphocytes # (Manual) Monocytes # (Manual) Eosinophils # (Manual) Nucleated RBC % Basophils # (Manual) PT INR APTT Heparin Anti-Xa Level ABG pH POC ABG pO2 ABG pO2 ABG HCO3 ABG O2 Saturation ABG Base Excess POC ABG pCO2 ABG Hemoglobin ABG Oxyhemoglobin ABG Chloride ABG Glucose Oxyhemoglobin Sodium Potassium Chloride Carbon Dioxide BUN Creatinine Glucose POC Glucose 158 H 150 H Lactic Acid Calcium Phosphorus Magnesium AST ALT Lactate Dehydrogenase Total Bilirubin Direct Bilirubin CK-MB (CK-2) C-Reactive Protein NT-Pro-B Natriuret Pep Total Protein Albumin Arterial Blood Glucose Urine WBC (Auto) Urine Creatinine 12/18/19 12/18/19 12/18/19 05:17 05:49 11:12 WBC RBC Hgb Hct MCHC RDW MCV MCH Lymph % (Auto) [place] % (Auto) [place] # Eos # Lymph # (Auto) [place] # (Auto) Eos # (Auto) Seg Neutrophils % Seg Neuts % (Manual) Baso # (Auto) Lymphocytes % (Manual) Monocytes % (Manual) Eosinophils % (Manual) Basophils % (Manual) Seg Neutrophils # Seg Neutrophils # Man Lymphocytes # (Manual) Monocytes # (Manual) Eosinophils # (Manual) Nucleated RBC % Basophils # (Manual) PT INR APTT Heparin Anti-Xa Level 0.16 L ABG pH POC ABG pO2 ABG pO2 ABG HCO3 ABG O2 Saturation ABG Base Excess POC ABG pCO2 ABG Hemoglobin ABG Oxyhemoglobin ABG Chloride ABG Glucose Oxyhemoglobin Sodium Potassium Chloride Carbon Dioxide BUN Creatinine Glucose POC Glucose 127 H 191 H Lactic Acid Calcium Phosphorus Magnesium AST ALT Lactate Dehydrogenase Total Bilirubin Direct Bilirubin CK-MB (CK-2) C-Reactive Protein NT-Pro-B Natriuret Pep Total Protein Albumin Arterial Blood Glucose Urine WBC (Auto) Urine Creatinine 12/18/19 12/18/19 12/19/19 17:03 20:16 00:08 WBC RBC Hgb Hct MCHC RDW MCV MCH Lymph % (Auto) [place] % (Auto) [place] # Eos # Lymph # (Auto) [place] # (Auto) Eos # (Auto) Seg Neutrophils % Seg Neuts % (Manual) Baso # (Auto) Lymphocytes % (Manual) Monocytes % (Manual) Eosinophils % (Manual) Basophils % (Manual) Seg Neutrophils # Seg Neutrophils # Man Lymphocytes # (Manual) Monocytes # (Manual) Eosinophils # (Manual) Nucleated RBC % Basophils # (Manual) PT INR APTT Heparin Anti-Xa Level ABG pH POC ABG pO2 ABG pO2 ABG HCO3 ABG O2 Saturation ABG Base Excess POC ABG pCO2 ABG Hemoglobin ABG Oxyhemoglobin ABG Chloride ABG Glucose Oxyhemoglobin Sodium Potassium Chloride Carbon Dioxide BUN Creatinine Glucose POC Glucose 133 H 128 H 129 H Lactic Acid Calcium Phosphorus Magnesium AST ALT Lactate Dehydrogenase Total Bilirubin Direct Bilirubin CK-MB (CK-2) C-Reactive Protein NT-Pro-B Natriuret Pep Total Protein Albumin Arterial Blood Glucose Urine WBC (Auto) Urine Creatinine 12/19/19 12/19/19 12/19/19 04:45 04:45 05:35 WBC RBC Hgb Hct MCHC RDW MCV MCH Lymph % (Auto) [place] % (Auto) [place] # Eos # Lymph # (Auto) [place] # (Auto) Eos # (Auto) Seg Neutrophils % Seg Neuts % (Manual) Baso # (Auto) Lymphocytes % (Manual) Monocytes % (Manual) Eosinophils % (Manual) Basophils % (Manual) Seg Neutrophils # Seg Neutrophils # Man Lymphocytes # (Manual) Monocytes # (Manual) Eosinophils # (Manual) Nucleated RBC % Basophils # (Manual) PT INR APTT Heparin Anti-Xa Level 0.17 L ABG pH POC ABG pO2 ABG pO2 ABG HCO3 ABG O2 Saturation ABG Base Excess POC ABG pCO2 ABG Hemoglobin ABG Oxyhemoglobin ABG Chloride ABG Glucose Oxyhemoglobin Sodium Potassium Chloride Carbon Dioxide BUN Creatinine Glucose POC Glucose 120 H Lactic Acid Calcium Phosphorus Magnesium AST ALT Lactate Dehydrogenase 228 H Total Bilirubin Direct Bilirubin CK-MB (CK-2) C-Reactive Protein NT-Pro-B Natriuret Pep Total Protein Albumin Arterial Blood Glucose Urine WBC (Auto) Urine Creatinine 12/19/19 12/19/19 12/19/19 09:20 11:32 11:32 WBC 14.6 H RBC 3.08 L Hgb 9.0 L Hct 26.8 L MCHC RDW 15.9 H MCV MCH Lymph % (Auto) [place] % (Auto) [place] # Eos # Lymph # (Auto) [place] # (Auto) Eos # (Auto) Seg Neutrophils % Seg Neuts % (Manual) 82.0 H Baso # (Auto) Lymphocytes % (Manual) 10.0 L Monocytes % (Manual) Eosinophils % (Manual) Basophils % (Manual) Seg Neutrophils # Seg Neutrophils # Man 12.0 H Lymphocytes # (Manual) Monocytes # (Manual) 0.9 H Eosinophils # (Manual) Nucleated RBC % 1.0 H Basophils # (Manual) PT INR APTT Heparin Anti-Xa Level ABG pH 7.451 H POC ABG pO2 ABG pO2 62.6 L ABG HCO3 33.2 H ABG O2 Saturation 93.8 L ABG Base Excess 8.3 H POC ABG pCO2 ABG Hemoglobin 8.3 L ABG Oxyhemoglobin ABG Chloride ABG Glucose Oxyhemoglobin 91.9 L Sodium Potassium Chloride 95.0 L Carbon Dioxide 33 H BUN 22 H Creatinine 0.6 L Glucose 150 H POC Glucose Lactic Acid Calcium Phosphorus Magnesium AST ALT Lactate Dehydrogenase Total Bilirubin Direct Bilirubin CK-MB (CK-2) C-Reactive Protein NT-Pro-B Natriuret Pep Total Protein 6.2 L Albumin 2.4 L Arterial Blood Glucose Urine WBC (Auto) Urine Creatinine 12/19/19 12/19/19 12/20/19 11:56 18:17 00:09 WBC RBC Hgb Hct MCHC RDW MCV MCH Lymph % (Auto) [place] % (Auto) [place] # Eos # Lymph # (Auto) [place] # (Auto) Eos # (Auto) Seg Neutrophils % Seg Neuts % (Manual) Baso # (Auto) Lymphocytes % (Manual) Monocytes % (Manual) Eosinophils % (Manual) Basophils % (Manual) Seg Neutrophils # Seg Neutrophils # Man Lymphocytes # (Manual) Monocytes # (Manual) Eosinophils # (Manual) Nucleated RBC % Basophils # (Manual) PT INR APTT Heparin Anti-Xa Level ABG pH POC ABG pO2 ABG pO2 ABG HCO3 ABG O2 Saturation ABG Base Excess POC ABG pCO2 ABG Hemoglobin ABG Oxyhemoglobin ABG Chloride ABG Glucose Oxyhemoglobin Sodium Potassium Chloride Carbon Dioxide BUN Creatinine Glucose POC Glucose 156 H 156 H 155 H Lactic Acid Calcium Phosphorus Magnesium AST ALT Lactate Dehydrogenase Total Bilirubin Direct Bilirubin CK-MB (CK-2) C-Reactive Protein NT-Pro-B Natriuret Pep Total Protein Albumin Arterial Blood Glucose Urine WBC (Auto) Urine Creatinine 12/20/19 12/20/19 12/20/19 05:26 06:02 18:17 WBC RBC Hgb Hct MCHC RDW MCV MCH Lymph % (Auto) [place] % (Auto) [place] # Eos # Lymph # (Auto) [place] # (Auto) Eos # (Auto) Seg Neutrophils % Seg Neuts % (Manual) Baso # (Auto) Lymphocytes % (Manual) Monocytes % (Manual) Eosinophils % (Manual) Basophils % (Manual) Seg Neutrophils # Seg Neutrophils # Man Lymphocytes # (Manual) Monocytes # (Manual) Eosinophils # (Manual) Nucleated RBC % Basophils # (Manual) PT INR APTT Heparin Anti-Xa Level 0.19 L ABG pH POC ABG pO2 ABG pO2 ABG HCO3 ABG O2 Saturation ABG Base Excess POC ABG pCO2 ABG Hemoglobin ABG Oxyhemoglobin ABG Chloride ABG Glucose Oxyhemoglobin Sodium Potassium Chloride Carbon Dioxide BUN Creatinine Glucose POC Glucose 137 H 128 H Lactic Acid Calcium Phosphorus Magnesium AST ALT Lactate Dehydrogenase Total Bilirubin Direct Bilirubin CK-MB (CK-2) C-Reactive Protein NT-Pro-B Natriuret Pep Total Protein Albumin Arterial Blood Glucose Urine WBC (Auto) Urine Creatinine 12/20/19 12/21/19 12/21/19 23:34 05:31 05:31 WBC 12.7 H RBC 3.09 L Hgb 8.9 L Hct 27.4 L MCHC RDW 15.8 H MCV MCH Lymph % (Auto) 12.1 L [place] % (Auto) 7.8 H [place] # Eos # Lymph # (Auto) [place] # (Auto) 1.0 H Eos # (Auto) Seg Neutrophils % 77.1 H Seg Neuts % (Manual) Baso # (Auto) Lymphocytes % (Manual) Monocytes % (Manual) Eosinophils % (Manual) Basophils % (Manual) Seg Neutrophils # 9.8 H Seg Neutrophils # Man Lymphocytes # (Manual) Monocytes # (Manual) Eosinophils # (Manual) Nucleated RBC % Basophils # (Manual) PT INR APTT Heparin Anti-Xa Level ABG pH POC ABG pO2 ABG pO2 ABG HCO3 ABG O2 Saturation ABG Base Excess POC ABG pCO2 ABG Hemoglobin ABG Oxyhemoglobin ABG Chloride ABG Glucose Oxyhemoglobin Sodium Potassium Chloride 96.9 L Carbon Dioxide 37 H BUN 27 H Creatinine 0.7 L Glucose 140 H POC Glucose 145 H Lactic Acid Calcium Phosphorus Magnesium AST ALT Lactate Dehydrogenase Total Bilirubin Direct Bilirubin CK-MB (CK-2) C-Reactive Protein NT-Pro-B Natriuret Pep Total Protein Albumin Arterial Blood Glucose Urine WBC (Auto) Urine Creatinine 12/21/19 12/21/19 12/21/19 05:38 10:13 11:51 WBC RBC Hgb Hct MCHC RDW MCV MCH Lymph % (Auto) [place] % (Auto) [place] # Eos # Lymph # (Auto) [place] # (Auto) Eos # (Auto) Seg Neutrophils % Seg Neuts % (Manual) Baso # (Auto) Lymphocytes % (Manual) Monocytes % (Manual) Eosinophils % (Manual) Basophils % (Manual) Seg Neutrophils # Seg Neutrophils # Man Lymphocytes # (Manual) Monocytes # (Manual) Eosinophils # (Manual) Nucleated RBC % Basophils # (Manual) PT INR APTT 23.9 L Heparin Anti-Xa Level < 0.10 L ABG pH POC ABG pO2 ABG pO2 ABG HCO3 ABG O2 Saturation ABG Base Excess POC ABG pCO2 ABG Hemoglobin ABG Oxyhemoglobin ABG Chloride ABG Glucose Oxyhemoglobin Sodium Potassium Chloride Carbon Dioxide BUN Creatinine Glucose POC Glucose 151 H 145 H Lactic Acid Calcium Phosphorus Magnesium AST ALT Lactate Dehydrogenase Total Bilirubin Direct Bilirubin CK-MB (CK-2) C-Reactive Protein NT-Pro-B Natriuret Pep Total Protein Albumin Arterial Blood Glucose Urine WBC (Auto) Urine Creatinine 12/21/19 12/22/19 12/22/19 17:16 00:01 01:33 WBC RBC Hgb Hct MCHC RDW MCV MCH Lymph % (Auto) [place] % (Auto) [place] # Eos # Lymph # (Auto) [place] # (Auto) Eos # (Auto) Seg Neutrophils % Seg Neuts % (Manual) Baso # (Auto) Lymphocytes % (Manual) Monocytes % (Manual) Eosinophils % (Manual) Basophils % (Manual) Seg Neutrophils # Seg Neutrophils # Man Lymphocytes # (Manual) Monocytes # (Manual) Eosinophils # (Manual) Nucleated RBC % Basophils # (Manual) PT INR APTT Heparin Anti-Xa Level 0.10 L ABG pH POC ABG pO2 ABG pO2 ABG HCO3 ABG O2 Saturation ABG Base Excess POC ABG pCO2 ABG Hemoglobin ABG Oxyhemoglobin ABG Chloride ABG Glucose Oxyhemoglobin Sodium Potassium Chloride Carbon Dioxide BUN Creatinine Glucose POC Glucose 167 H 179 H Lactic Acid Calcium Phosphorus Magnesium AST ALT Lactate Dehydrogenase Total Bilirubin Direct Bilirubin CK-MB (CK-2) C-Reactive Protein NT-Pro-B Natriuret Pep Total Protein Albumin Arterial Blood Glucose Urine WBC (Auto) Urine Creatinine 12/22/19 12/22/19 12/22/19 03:22 05:10 05:10 WBC 13.8 H RBC 3.20 L Hgb 8.9 L Hct 28.1 L MCHC RDW 15.9 H MCV MCH Lymph % (Auto) [place] % (Auto) [place] # Eos # Lymph # (Auto) [place] # (Auto) Eos # (Auto) Seg Neutrophils % Seg Neuts % (Manual) Baso # (Auto) Lymphocytes % (Manual) Monocytes % (Manual) Eosinophils % (Manual) Basophils % (Manual) Seg Neutrophils # Seg Neutrophils # Man Lymphocytes # (Manual) Monocytes # (Manual) Eosinophils # (Manual) Nucleated RBC % Basophils # (Manual) PT INR APTT Heparin Anti-Xa Level ABG pH POC ABG pO2 52.3 L ABG pO2 ABG HCO3 ABG O2 Saturation ABG Base Excess POC ABG pCO2 52.9 H ABG Hemoglobin 10.7 L ABG Oxyhemoglobin 84 L ABG Chloride ABG Glucose Oxyhemoglobin Sodium Potassium Chloride 96.6 L Carbon Dioxide BUN 25 H Creatinine 0.7 L Glucose 129 H POC Glucose Lactic Acid Calcium Phosphorus Magnesium AST ALT Lactate Dehydrogenase Total Bilirubin Direct Bilirubin CK-MB (CK-2) C-Reactive Protein NT-Pro-B Natriuret Pep Total Protein Albumin Arterial Blood Glucose Urine WBC (Auto) Urine Creatinine 12/22/19 12/22/19 12/22/19 05:18 12:32 12:43 WBC RBC Hgb Hct MCHC RDW MCV MCH Lymph % (Auto) [place] % (Auto) [place] # Eos # Lymph # (Auto) [place] # (Auto) Eos # (Auto) Seg Neutrophils % Seg Neuts % (Manual) Baso # (Auto) Lymphocytes % (Manual) Monocytes % (Manual) Eosinophils % (Manual) Basophils % (Manual) Seg Neutrophils # Seg Neutrophils # Man Lymphocytes # (Manual) Monocytes # (Manual) Eosinophils # (Manual) Nucleated RBC % Basophils # (Manual) PT INR APTT Heparin Anti-Xa Level 0.18 L ABG pH POC ABG pO2 ABG pO2 ABG HCO3 ABG O2 Saturation ABG Base Excess POC ABG pCO2 ABG Hemoglobin ABG Oxyhemoglobin ABG Chloride ABG Glucose Oxyhemoglobin Sodium Potassium Chloride Carbon Dioxide BUN Creatinine Glucose POC Glucose 131 H 208 H Lactic Acid Calcium Phosphorus Magnesium AST ALT Lactate Dehydrogenase Total Bilirubin Direct Bilirubin CK-MB (CK-2) C-Reactive Protein NT-Pro-B Natriuret Pep Total Protein Albumin Arterial Blood Glucose Urine WBC (Auto) Urine Creatinine 12/22/19 12/22/19 12/23/19 17:44 23:20 03:51 WBC 15.2 H RBC 3.43 L Hgb 9.6 L Hct 30.3 L MCHC RDW 15.9 H MCV MCH Lymph % (Auto) [place] % (Auto) [place] # Eos # Lymph # (Auto) [place] # (Auto) Eos # (Auto) Seg Neutrophils % Seg Neuts % (Manual) Baso # (Auto) Lymphocytes % (Manual) Monocytes % (Manual) Eosinophils % (Manual) Basophils % (Manual) Seg Neutrophils # Seg Neutrophils # Man Lymphocytes # (Manual) Monocytes # (Manual) Eosinophils # (Manual) Nucleated RBC % Basophils # (Manual) PT INR APTT Heparin Anti-Xa Level ABG pH POC ABG pO2 ABG pO2 ABG HCO3 ABG O2 Saturation ABG Base Excess POC ABG pCO2 ABG Hemoglobin ABG Oxyhemoglobin ABG Chloride ABG Glucose Oxyhemoglobin Sodium Potassium Chloride Carbon Dioxide BUN Creatinine Glucose POC Glucose 209 H 119 H Lactic Acid Calcium Phosphorus Magnesium AST ALT Lactate Dehydrogenase Total Bilirubin Direct Bilirubin CK-MB (CK-2) C-Reactive Protein NT-Pro-B Natriuret Pep Total Protein Albumin Arterial Blood Glucose Urine WBC (Auto) Urine Creatinine 12/23/19 12/23/19 12/23/19 03:51 05:31 12:09 WBC RBC Hgb Hct MCHC RDW MCV MCH Lymph % (Auto) [place] % (Auto) [place] # Eos # Lymph # (Auto) [place] # (Auto) Eos # (Auto) Seg Neutrophils % Seg Neuts % (Manual) Baso # (Auto) Lymphocytes % (Manual) Monocytes % (Manual) Eosinophils % (Manual) Basophils % (Manual) Seg Neutrophils # Seg Neutrophils # Man Lymphocytes # (Manual) Monocytes # (Manual) Eosinophils # (Manual) Nucleated RBC % Basophils # (Manual) PT INR APTT Heparin Anti-Xa Level ABG pH POC ABG pO2 ABG pO2 ABG HCO3 ABG O2 Saturation ABG Base Excess POC ABG pCO2 ABG Hemoglobin ABG Oxyhemoglobin ABG Chloride ABG Glucose Oxyhemoglobin Sodium Potassium Chloride 97.2 L Carbon Dioxide 31 H BUN 23 H Creatinine 0.6 L Glucose 153 H POC Glucose 149 H 144 H Lactic Acid Calcium Phosphorus Magnesium AST ALT Lactate Dehydrogenase Total Bilirubin Direct Bilirubin CK-MB (CK-2) C-Reactive Protein NT-Pro-B Natriuret Pep Total Protein Albumin Arterial Blood Glucose Urine WBC (Auto) Urine Creatinine 12/23/19 12/23/19 12/23/19 15:30 17:49 23:31 WBC RBC Hgb Hct MCHC RDW MCV MCH Lymph % (Auto) [place] % (Auto) [place] # Eos # Lymph # (Auto) [place] # (Auto) Eos # (Auto) Seg Neutrophils % Seg Neuts % (Manual) Baso # (Auto) Lymphocytes % (Manual) Monocytes % (Manual) Eosinophils % (Manual) Basophils % (Manual) Seg Neutrophils # Seg Neutrophils # Man Lymphocytes # (Manual) Monocytes # (Manual) Eosinophils # (Manual) Nucleated RBC % Basophils # (Manual) PT INR APTT Heparin Anti-Xa Level 0.21 L ABG pH POC ABG pO2 ABG pO2 ABG HCO3 ABG O2 Saturation ABG Base Excess POC ABG pCO2 ABG Hemoglobin ABG Oxyhemoglobin ABG Chloride ABG Glucose Oxyhemoglobin Sodium Potassium Chloride Carbon Dioxide BUN Creatinine Glucose POC Glucose 192 H 151 H Lactic Acid Calcium Phosphorus Magnesium AST ALT Lactate Dehydrogenase Total Bilirubin Direct Bilirubin CK-MB (CK-2) C-Reactive Protein NT-Pro-B Natriuret Pep Total Protein Albumin Arterial Blood Glucose Urine WBC (Auto) Urine Creatinine 12/24/19 12/24/19 12/24/19 05:34 12:13 16:50 WBC RBC Hgb Hct MCHC RDW MCV MCH Lymph % (Auto) [place] % (Auto) [place] # Eos # Lymph # (Auto) [place] # (Auto) Eos # (Auto) Seg Neutrophils % Seg Neuts % (Manual) Baso # (Auto) Lymphocytes % (Manual) Monocytes % (Manual) Eosinophils % (Manual) Basophils % (Manual) Seg Neutrophils # Seg Neutrophils # Man Lymphocytes # (Manual) Monocytes # (Manual) Eosinophils # (Manual) Nucleated RBC % Basophils # (Manual) PT INR APTT Heparin Anti-Xa Level 0.16 L ABG pH POC ABG pO2 ABG pO2 ABG HCO3 ABG O2 Saturation ABG Base Excess POC ABG pCO2 ABG Hemoglobin ABG Oxyhemoglobin ABG Chloride ABG Glucose Oxyhemoglobin Sodium Potassium Chloride Carbon Dioxide BUN Creatinine Glucose POC Glucose 145 H 124 H Lactic Acid Calcium Phosphorus Magnesium AST ALT Lactate Dehydrogenase Total Bilirubin Direct Bilirubin CK-MB (CK-2) C-Reactive Protein NT-Pro-B Natriuret Pep Total Protein Albumin Arterial Blood Glucose Urine WBC (Auto) Urine Creatinine 12/24/19 12/25/19 12/25/19 17:53 00:14 04:18 WBC 12.9 H RBC 3.30 L Hgb 9.1 L Hct 28.8 L MCHC RDW 16.4 H MCV MCH Lymph % (Auto) [place] % (Auto) 7.8 H [place] # Eos # Lymph # (Auto) [place] # (Auto) 1.0 H Eos # (Auto) Seg Neutrophils % 75.5 H Seg Neuts % (Manual) Baso # (Auto) Lymphocytes % (Manual) Monocytes % (Manual) Eosinophils % (Manual) Basophils % (Manual) Seg Neutrophils # 9.7 H Seg Neutrophils # Man Lymphocytes # (Manual) Monocytes # (Manual) Eosinophils # (Manual) Nucleated RBC % Basophils # (Manual) PT INR APTT Heparin Anti-Xa Level ABG pH POC ABG pO2 ABG pO2 ABG HCO3 ABG O2 Saturation ABG Base Excess POC ABG pCO2 ABG Hemoglobin ABG Oxyhemoglobin ABG Chloride ABG Glucose Oxyhemoglobin Sodium Potassium Chloride Carbon Dioxide BUN Creatinine Glucose POC Glucose 164 H 148 H Lactic Acid Calcium Phosphorus Magnesium AST ALT Lactate Dehydrogenase Total Bilirubin Direct Bilirubin CK-MB (CK-2) C-Reactive Protein NT-Pro-B Natriuret Pep Total Protein Albumin Arterial Blood Glucose Urine WBC (Auto) Urine Creatinine 12/25/19 12/25/19 12/25/19 04:18 05:38 11:44 WBC RBC Hgb Hct MCHC RDW MCV MCH Lymph % (Auto) [place] % (Auto) [place] # Eos # Lymph # (Auto) [place] # (Auto) Eos # (Auto) Seg Neutrophils % Seg Neuts % (Manual) Baso # (Auto) Lymphocytes % (Manual) Monocytes % (Manual) Eosinophils % (Manual) Basophils % (Manual) Seg Neutrophils # Seg Neutrophils # Man Lymphocytes # (Manual) Monocytes # (Manual) Eosinophils # (Manual) Nucleated RBC % Basophils # (Manual) PT INR APTT Heparin Anti-Xa Level ABG pH POC ABG pO2 ABG pO2 ABG HCO3 ABG O2 Saturation ABG Base Excess POC ABG pCO2 ABG Hemoglobin ABG Oxyhemoglobin ABG Chloride ABG Glucose Oxyhemoglobin Sodium Potassium Chloride Carbon Dioxide 33 H BUN 27 H Creatinine 0.6 L Glucose 132 H POC Glucose 152 H 166 H Lactic Acid Calcium Phosphorus Magnesium AST ALT Lactate Dehydrogenase Total Bilirubin Direct Bilirubin CK-MB (CK-2) C-Reactive Protein NT-Pro-B Natriuret Pep Total Protein Albumin Arterial Blood Glucose Urine WBC (Auto) Urine Creatinine 12/25/19 12/26/19 12/26/19 18:29 00:17 00:18 WBC RBC Hgb Hct MCHC RDW MCV MCH Lymph % (Auto) [place] % (Auto) [place] # Eos # Lymph # (Auto) [place] # (Auto) Eos # (Auto) Seg Neutrophils % Seg Neuts % (Manual) Baso # (Auto) Lymphocytes % (Manual) Monocytes % (Manual) Eosinophils % (Manual) Basophils % (Manual) Seg Neutrophils # Seg Neutrophils # Man Lymphocytes # (Manual) Monocytes # (Manual) Eosinophils # (Manual) Nucleated RBC % Basophils # (Manual) PT INR APTT Heparin Anti-Xa Level ABG pH POC ABG pO2 ABG pO2 ABG HCO3 ABG O2 Saturation ABG Base Excess POC ABG pCO2 ABG Hemoglobin ABG Oxyhemoglobin ABG Chloride ABG Glucose Oxyhemoglobin Sodium Potassium Chloride 97.8 L Carbon Dioxide BUN 25 H Creatinine 0.6 L Glucose 140 H POC Glucose 194 H 151 H Lactic Acid Calcium Phosphorus Magnesium AST ALT Lactate Dehydrogenase Total Bilirubin Direct Bilirubin CK-MB (CK-2) C-Reactive Protein NT-Pro-B Natriuret Pep Total Protein Albumin Arterial Blood Glucose Urine WBC (Auto) Urine Creatinine 12/26/19 12/26/19 12/26/19 05:36 11:41 17:50 WBC RBC Hgb Hct MCHC RDW MCV MCH Lymph % (Auto) [place] % (Auto) [place] # Eos # Lymph # (Auto) [place] # (Auto) Eos # (Auto) Seg Neutrophils % Seg Neuts % (Manual) Baso # (Auto) Lymphocytes % (Manual) Monocytes % (Manual) Eosinophils % (Manual) Basophils % (Manual) Seg Neutrophils # Seg Neutrophils # Man Lymphocytes # (Manual) Monocytes # (Manual) Eosinophils # (Manual) Nucleated RBC % Basophils # (Manual) PT INR APTT Heparin Anti-Xa Level ABG pH POC ABG pO2 ABG pO2 ABG HCO3 ABG O2 Saturation ABG Base Excess POC ABG pCO2 ABG Hemoglobin ABG Oxyhemoglobin ABG Chloride ABG Glucose Oxyhemoglobin Sodium Potassium Chloride Carbon Dioxide BUN Creatinine Glucose POC Glucose 156 H 148 H 139 H Lactic Acid Calcium Phosphorus Magnesium AST ALT Lactate Dehydrogenase Total Bilirubin Direct Bilirubin CK-MB (CK-2) C-Reactive Protein NT-Pro-B Natriuret Pep Total Protein Albumin Arterial Blood Glucose Urine WBC (Auto) Urine Creatinine 12/26/19 12/27/19 12/27/19 23:19 05:34 12:02 WBC RBC Hgb Hct MCHC RDW MCV MCH Lymph % (Auto) [place] % (Auto) [place] # Eos # Lymph # (Auto) [place] # (Auto) Eos # (Auto) Seg Neutrophils % Seg Neuts % (Manual) Baso # (Auto) Lymphocytes % (Manual) Monocytes % (Manual) Eosinophils % (Manual) Basophils % (Manual) Seg Neutrophils # Seg Neutrophils # Man Lymphocytes # (Manual) Monocytes # (Manual) Eosinophils # (Manual) Nucleated RBC % Basophils # (Manual) PT INR APTT Heparin Anti-Xa Level ABG pH POC ABG pO2 ABG pO2 ABG HCO3 ABG O2 Saturation ABG Base Excess POC ABG pCO2 ABG Hemoglobin ABG Oxyhemoglobin ABG Chloride ABG Glucose Oxyhemoglobin Sodium Potassium Chloride Carbon Dioxide BUN Creatinine Glucose POC Glucose 161 H 145 H 157 H Lactic Acid Calcium Phosphorus Magnesium AST ALT Lactate Dehydrogenase Total Bilirubin Direct Bilirubin CK-MB (CK-2) C-Reactive Protein NT-Pro-B Natriuret Pep Total Protein Albumin Arterial Blood Glucose Urine WBC (Auto) Urine Creatinine 12/27/19 12/27/19 12/27/19 17:35 20:11 23:00 WBC RBC Hgb Hct MCHC RDW MCV MCH Lymph % (Auto) [place] % (Auto) [place] # Eos # Lymph # (Auto) [place] # (Auto) Eos # (Auto) Seg Neutrophils % Seg Neuts % (Manual) Baso # (Auto) Lymphocytes % (Manual) Monocytes % (Manual) Eosinophils % (Manual) Basophils % (Manual) Seg Neutrophils # Seg Neutrophils # Man Lymphocytes # (Manual) Monocytes # (Manual) Eosinophils # (Manual) Nucleated RBC % Basophils # (Manual) PT INR APTT Heparin Anti-Xa Level 0.19 L ABG pH POC ABG pO2 ABG pO2 ABG HCO3 ABG O2 Saturation ABG Base Excess POC ABG pCO2 ABG Hemoglobin ABG Oxyhemoglobin ABG Chloride ABG Glucose Oxyhemoglobin Sodium Potassium Chloride Carbon Dioxide BUN Creatinine Glucose POC Glucose 158 H 155 H Lactic Acid Calcium Phosphorus Magnesium AST ALT Lactate Dehydrogenase Total Bilirubin Direct Bilirubin CK-MB (CK-2) C-Reactive Protein NT-Pro-B Natriuret Pep Total Protein Albumin Arterial Blood Glucose Urine WBC (Auto) Urine Creatinine 12/27/19 12/28/19 12/28/19 23:45 02:41 02:41 WBC 13.0 H RBC 3.48 L Hgb 9.5 L Hct 30.6 L MCHC 31 L RDW 16.6 H MCV MCH 27 L Lymph % (Auto) 13.0 L [place] % (Auto) 8.0 H [place] # Eos # Lymph # (Auto) [place] # (Auto) 1.0 H Eos # (Auto) Seg Neutrophils % 76.3 H Seg Neuts % (Manual) Baso # (Auto) Lymphocytes % (Manual) Monocytes % (Manual) Eosinophils % (Manual) Basophils % (Manual) Seg Neutrophils # 9.9 H Seg Neutrophils # Man Lymphocytes # (Manual) Monocytes # (Manual) Eosinophils # (Manual) Nucleated RBC % Basophils # (Manual) PT INR APTT Heparin Anti-Xa Level ABG pH POC ABG pO2 ABG pO2 ABG HCO3 ABG O2 Saturation ABG Base Excess POC ABG pCO2 ABG Hemoglobin ABG Oxyhemoglobin ABG Chloride ABG Glucose Oxyhemoglobin Sodium Potassium Chloride Carbon Dioxide BUN 22 H Creatinine 0.6 L Glucose 101 H POC Glucose 130 H Lactic Acid Calcium Phosphorus Magnesium AST ALT Lactate Dehydrogenase Total Bilirubin Direct Bilirubin CK-MB (CK-2) C-Reactive Protein NT-Pro-B Natriuret Pep Total Protein Albumin Arterial Blood Glucose Urine WBC (Auto) Urine Creatinine 12/28/19 12/28/19 12/28/19 06:00 12:34 18:13 WBC RBC Hgb Hct MCHC RDW MCV MCH Lymph % (Auto) [place] % (Auto) [place] # Eos # Lymph # (Auto) [place] # (Auto) Eos # (Auto) Seg Neutrophils % Seg Neuts % (Manual) Baso # (Auto) Lymphocytes % (Manual) Monocytes % (Manual) Eosinophils % (Manual) Basophils % (Manual) Seg Neutrophils # Seg Neutrophils # Man Lymphocytes # (Manual) Monocytes # (Manual) Eosinophils # (Manual) Nucleated RBC % Basophils # (Manual) PT INR APTT Heparin Anti-Xa Level ABG pH POC ABG pO2 ABG pO2 ABG HCO3 ABG O2 Saturation ABG Base Excess POC ABG pCO2 ABG Hemoglobin ABG Oxyhemoglobin ABG Chloride ABG Glucose Oxyhemoglobin Sodium Potassium Chloride Carbon Dioxide BUN Creatinine Glucose POC Glucose 150 H 161 H 128 H Lactic Acid Calcium Phosphorus Magnesium AST ALT Lactate Dehydrogenase Total Bilirubin Direct Bilirubin CK-MB (CK-2) C-Reactive Protein NT-Pro-B Natriuret Pep Total Protein Albumin Arterial Blood Glucose Urine WBC (Auto) Urine Creatinine 12/28/19 12/29/19 12/29/19 23:36 05:21 11:40 WBC RBC Hgb Hct MCHC RDW MCV MCH Lymph % (Auto) [place] % (Auto) [place] # Eos # Lymph # (Auto) [place] # (Auto) Eos # (Auto) Seg Neutrophils % Seg Neuts % (Manual) Baso # (Auto) Lymphocytes % (Manual) Monocytes % (Manual) Eosinophils % (Manual) Basophils % (Manual) Seg Neutrophils # Seg Neutrophils # Man Lymphocytes # (Manual) Monocytes # (Manual) Eosinophils # (Manual) Nucleated RBC % Basophils # (Manual) PT INR APTT Heparin Anti-Xa Level ABG pH POC ABG pO2 ABG pO2 ABG HCO3 ABG O2 Saturation ABG Base Excess POC ABG pCO2 ABG Hemoglobin ABG Oxyhemoglobin ABG Chloride ABG Glucose Oxyhemoglobin Sodium Potassium Chloride Carbon Dioxide BUN Creatinine Glucose POC Glucose 137 H 136 H 166 H Lactic Acid Calcium Phosphorus Magnesium AST ALT Lactate Dehydrogenase Total Bilirubin Direct Bilirubin CK-MB (CK-2) C-Reactive Protein NT-Pro-B Natriuret Pep Total Protein Albumin Arterial Blood Glucose Urine WBC (Auto) Urine Creatinine 12/29/19 12/29/19 12/29/19 17:23 19:21 23:38 WBC RBC Hgb Hct MCHC RDW MCV MCH Lymph % (Auto) [place] % (Auto) [place] # Eos # Lymph # (Auto) [place] # (Auto) Eos # (Auto) Seg Neutrophils % Seg Neuts % (Manual) Baso # (Auto) Lymphocytes % (Manual) Monocytes % (Manual) Eosinophils % (Manual) Basophils % (Manual) Seg Neutrophils # Seg Neutrophils # Man Lymphocytes # (Manual) Monocytes # (Manual) Eosinophils # (Manual) Nucleated RBC % Basophils # (Manual) PT INR APTT Heparin Anti-Xa Level 0.20 L ABG pH POC ABG pO2 ABG pO2 ABG HCO3 ABG O2 Saturation ABG Base Excess POC ABG pCO2 ABG Hemoglobin ABG Oxyhemoglobin ABG Chloride ABG Glucose Oxyhemoglobin Sodium Potassium Chloride Carbon Dioxide BUN Creatinine Glucose POC Glucose 144 H 141 H Lactic Acid Calcium Phosphorus Magnesium AST ALT Lactate Dehydrogenase Total Bilirubin Direct Bilirubin CK-MB (CK-2) C-Reactive Protein NT-Pro-B Natriuret Pep Total Protein Albumin Arterial Blood Glucose Urine WBC (Auto) Urine Creatinine 12/30/19 12/30/19 12/30/19 03:58 03:58 04:59 WBC RBC 3.54 L Hgb 9.8 L Hct 30.7 L MCHC RDW 16.8 H MCV MCH Lymph % (Auto) [place] % (Auto) [place] # Eos # Lymph # (Auto) [place] # (Auto) Eos # (Auto) Seg Neutrophils % Seg Neuts % (Manual) Baso # (Auto) Lymphocytes % (Manual) Monocytes % (Manual) Eosinophils % (Manual) Basophils % (Manual) Seg Neutrophils # Seg Neutrophils # Man Lymphocytes # (Manual) Monocytes # (Manual) Eosinophils # (Manual) Nucleated RBC % Basophils # (Manual) PT INR APTT Heparin Anti-Xa Level ABG pH POC ABG pO2 ABG pO2 ABG HCO3 29.8 H ABG O2 Saturation ABG Base Excess 4.8 H POC ABG pCO2 ABG Hemoglobin 11.2 L ABG Oxyhemoglobin ABG Chloride ABG Glucose Oxyhemoglobin 93.8 L Sodium Potassium Chloride 97.8 L Carbon Dioxide BUN 26 H Creatinine Glucose 168 H POC Glucose Lactic Acid Calcium Phosphorus Magnesium AST ALT Lactate Dehydrogenase Total Bilirubin Direct Bilirubin CK-MB (CK-2) C-Reactive Protein NT-Pro-B Natriuret Pep Total Protein Albumin Arterial Blood Glucose Urine WBC (Auto) Urine Creatinine 12/30/19 12/30/19 12/30/19 05:45 11:34 17:28 WBC RBC Hgb Hct MCHC RDW MCV MCH Lymph % (Auto) [place] % (Auto) [place] # Eos # Lymph # (Auto) [place] # (Auto) Eos # (Auto) Seg Neutrophils % Seg Neuts % (Manual) Baso # (Auto) Lymphocytes % (Manual) Monocytes % (Manual) Eosinophils % (Manual) Basophils % (Manual) Seg Neutrophils # Seg Neutrophils # Man Lymphocytes # (Manual) Monocytes # (Manual) Eosinophils # (Manual) Nucleated RBC % Basophils # (Manual) PT INR APTT Heparin Anti-Xa Level ABG pH POC ABG pO2 ABG pO2 ABG HCO3 ABG O2 Saturation ABG Base Excess POC ABG pCO2 ABG Hemoglobin ABG Oxyhemoglobin ABG Chloride ABG Glucose Oxyhemoglobin Sodium Potassium Chloride Carbon Dioxide BUN Creatinine Glucose POC Glucose 163 H 180 H 150 H Lactic Acid Calcium Phosphorus Magnesium AST ALT Lactate Dehydrogenase Total Bilirubin Direct Bilirubin CK-MB (CK-2) C-Reactive Protein NT-Pro-B Natriuret Pep Total Protein Albumin Arterial Blood Glucose Urine WBC (Auto) Urine Creatinine 12/30/19 12/31/19 12/31/19 23:43 04:55 05:07 WBC RBC Hgb Hct MCHC RDW MCV MCH Lymph % (Auto) [place] % (Auto) [place] # Eos # Lymph # (Auto) [place] # (Auto) Eos # (Auto) Seg Neutrophils % Seg Neuts % (Manual) Baso # (Auto) Lymphocytes % (Manual) Monocytes % (Manual) Eosinophils % (Manual) Basophils % (Manual) Seg Neutrophils # Seg Neutrophils # Man Lymphocytes # (Manual) Monocytes # (Manual) Eosinophils # (Manual) Nucleated RBC % Basophils # (Manual) PT INR APTT Heparin Anti-Xa Level ABG pH POC ABG pO2 ABG pO2 ABG HCO3 ABG O2 Saturation ABG Base Excess POC ABG pCO2 ABG Hemoglobin ABG Oxyhemoglobin ABG Chloride ABG Glucose Oxyhemoglobin Sodium Potassium 5.6 H D Chloride Carbon Dioxide BUN 33 H Creatinine Glucose 131 H POC Glucose 142 H 134 H Lactic Acid Calcium Phosphorus Magnesium AST ALT Lactate Dehydrogenase Total Bilirubin Direct Bilirubin CK-MB (CK-2) C-Reactive Protein NT-Pro-B Natriuret Pep Total Protein Albumin Arterial Blood Glucose Urine WBC (Auto) Urine Creatinine 12/31/19 12/31/19 12/31/19 11:30 17:19 17:36 WBC RBC Hgb Hct MCHC RDW MCV MCH Lymph % (Auto) [place] % (Auto) [place] # Eos # Lymph # (Auto) [place] # (Auto) Eos # (Auto) Seg Neutrophils % Seg Neuts % (Manual) Baso # (Auto) Lymphocytes % (Manual) Monocytes % (Manual) Eosinophils % (Manual) Basophils % (Manual) Seg Neutrophils # Seg Neutrophils # Man Lymphocytes # (Manual) Monocytes # (Manual) Eosinophils # (Manual) Nucleated RBC % Basophils # (Manual) PT INR APTT Heparin Anti-Xa Level ABG pH POC ABG pO2 ABG pO2 ABG HCO3 ABG O2 Saturation ABG Base Excess POC ABG pCO2 ABG Hemoglobin ABG Oxyhemoglobin ABG Chloride ABG Glucose Oxyhemoglobin Sodium Potassium Chloride Carbon Dioxide BUN 35 H Creatinine Glucose 156 H POC Glucose 158 H 181 H Lactic Acid Calcium Phosphorus Magnesium AST ALT Lactate Dehydrogenase Total Bilirubin Direct Bilirubin CK-MB (CK-2) C-Reactive Protein NT-Pro-B Natriuret Pep Total Protein Albumin Arterial Blood Glucose Urine WBC (Auto) Urine Creatinine 12/31/19 12/31/19 12/31/19 18:16 19:41 21:53 WBC RBC Hgb Hct MCHC RDW MCV MCH Lymph % (Auto) [place] % (Auto) [place] # Eos # Lymph # (Auto) [place] # (Auto) Eos # (Auto) Seg Neutrophils % Seg Neuts % (Manual) Baso # (Auto) Lymphocytes % (Manual) Monocytes % (Manual) Eosinophils % (Manual) Basophils % (Manual) Seg Neutrophils # Seg Neutrophils # Man Lymphocytes # (Manual) Monocytes # (Manual) Eosinophils # (Manual) Nucleated RBC % Basophils # (Manual) PT INR APTT Heparin Anti-Xa Level 0.20 L ABG pH POC ABG pO2 ABG pO2 ABG HCO3 ABG O2 Saturation ABG Base Excess POC ABG pCO2 ABG Hemoglobin ABG Oxyhemoglobin ABG Chloride ABG Glucose Oxyhemoglobin Sodium Potassium Chloride Carbon Dioxide BUN 34 H Creatinine Glucose 169 H POC Glucose 141 H Lactic Acid Calcium Phosphorus Magnesium AST ALT Lactate Dehydrogenase Total Bilirubin Direct Bilirubin CK-MB (CK-2) C-Reactive Protein NT-Pro-B Natriuret Pep Total Protein Albumin Arterial Blood Glucose Urine WBC (Auto) Urine Creatinine 12/31/19 01/01/20 01/01/20 23:51 05:17 10:40 WBC RBC Hgb Hct MCHC RDW MCV MCH Lymph % (Auto) [place] % (Auto) [place] # Eos # Lymph # (Auto) [place] # (Auto) Eos # (Auto) Seg Neutrophils % Seg Neuts % (Manual) Baso # (Auto) Lymphocytes % (Manual) Monocytes % (Manual) Eosinophils % (Manual) Basophils % (Manual) Seg Neutrophils # Seg Neutrophils # Man Lymphocytes # (Manual) Monocytes # (Manual) Eosinophils # (Manual) Nucleated RBC % Basophils # (Manual) PT INR APTT Heparin Anti-Xa Level ABG pH POC ABG pO2 ABG pO2 ABG HCO3 ABG O2 Saturation ABG Base Excess POC ABG pCO2 ABG Hemoglobin ABG Oxyhemoglobin ABG Chloride ABG Glucose Oxyhemoglobin Sodium Potassium Chloride Carbon Dioxide BUN 31 H Creatinine 0.7 L Glucose 137 H POC Glucose 131 H 155 H Lactic Acid Calcium Phosphorus Magnesium AST 73 H ALT 97 H Lactate Dehydrogenase Total Bilirubin Direct Bilirubin CK-MB (CK-2) C-Reactive Protein NT-Pro-B Natriuret Pep 3866 H Total Protein Albumin 2.8 L Arterial Blood Glucose Urine WBC (Auto) Urine Creatinine 01/01/20 01/01/20 01/01/20 12:26 15:33 17:53 WBC 14.3 H RBC 3.35 L Hgb 9.1 L Hct 28.8 L MCHC RDW 17.0 H MCV MCH 27 L Lymph % (Auto) 7.0 L [place] % (Auto) 7.6 H [place] # Eos # Lymph # (Auto) 1.0 L [place] # (Auto) 1.1 H Eos # (Auto) Seg Neutrophils % 83.3 H Seg Neuts % (Manual) Baso # (Auto) Lymphocytes % (Manual) Monocytes % (Manual) Eosinophils % (Manual) Basophils % (Manual) Seg Neutrophils # 12.0 H Seg Neutrophils # Man Lymphocytes # (Manual) Monocytes # (Manual) Eosinophils # (Manual) Nucleated RBC % Basophils # (Manual) PT INR APTT Heparin Anti-Xa Level ABG pH POC ABG pO2 ABG pO2 ABG HCO3 ABG O2 Saturation ABG Base Excess POC ABG pCO2 ABG Hemoglobin ABG Oxyhemoglobin ABG Chloride ABG Glucose Oxyhemoglobin Sodium Potassium Chloride Carbon Dioxide BUN Creatinine Glucose POC Glucose 128 H 128 H Lactic Acid Calcium Phosphorus Magnesium AST ALT Lactate Dehydrogenase Total Bilirubin Direct Bilirubin CK-MB (CK-2) C-Reactive Protein NT-Pro-B Natriuret Pep Total Protein Albumin Arterial Blood Glucose Urine WBC (Auto) Urine Creatinine 01/01/20 01/02/20 01/02/20 23:04 05:39 07:00 WBC RBC Hgb Hct MCHC RDW MCV MCH Lymph % (Auto) [place] % (Auto) [place] # Eos # Lymph # (Auto) [place] # (Auto) Eos # (Auto) Seg Neutrophils % Seg Neuts % (Manual) Baso # (Auto) Lymphocytes % (Manual) Monocytes % (Manual) Eosinophils % (Manual) Basophils % (Manual) Seg Neutrophils # Seg Neutrophils # Man Lymphocytes # (Manual) Monocytes # (Manual) Eosinophils # (Manual) Nucleated RBC % Basophils # (Manual) PT INR APTT Heparin Anti-Xa Level 0.13 L ABG pH POC ABG pO2 ABG pO2 ABG HCO3 ABG O2 Saturation ABG Base Excess POC ABG pCO2 ABG Hemoglobin ABG Oxyhemoglobin ABG Chloride ABG Glucose Oxyhemoglobin Sodium Potassium Chloride Carbon Dioxide BUN Creatinine Glucose POC Glucose 120 H 169 H Lactic Acid Calcium Phosphorus Magnesium AST ALT Lactate Dehydrogenase Total Bilirubin Direct Bilirubin CK-MB (CK-2) C-Reactive Protein NT-Pro-B Natriuret Pep Total Protein Albumin Arterial Blood Glucose Urine WBC (Auto) Urine Creatinine 01/02/20 01/02/20 01/02/20 12:15 14:06 17:58 WBC RBC Hgb Hct MCHC RDW MCV MCH Lymph % (Auto) [place] % (Auto) [place] # Eos # Lymph # (Auto) [place] # (Auto) Eos # (Auto) Seg Neutrophils % Seg Neuts % (Manual) Baso # (Auto) Lymphocytes % (Manual) Monocytes % (Manual) Eosinophils % (Manual) Basophils % (Manual) Seg Neutrophils # Seg Neutrophils # Man Lymphocytes # (Manual) Monocytes # (Manual) Eosinophils # (Manual) Nucleated RBC % Basophils # (Manual) PT INR APTT Heparin Anti-Xa Level < 0.10 L ABG pH POC ABG pO2 ABG pO2 ABG HCO3 ABG O2 Saturation ABG Base Excess POC ABG pCO2 ABG Hemoglobin ABG Oxyhemoglobin ABG Chloride ABG Glucose Oxyhemoglobin Sodium Potassium Chloride Carbon Dioxide BUN Creatinine Glucose POC Glucose 190 H 198 H Lactic Acid Calcium Phosphorus Magnesium AST ALT Lactate Dehydrogenase Total Bilirubin Direct Bilirubin CK-MB (CK-2) C-Reactive Protein NT-Pro-B Natriuret Pep Total Protein Albumin Arterial Blood Glucose Urine WBC (Auto) Urine Creatinine 01/02/20 01/02/20 01/03/20 21:43 23:33 05:42 WBC RBC Hgb Hct MCHC RDW MCV MCH Lymph % (Auto) [place] % (Auto) [place] # Eos # Lymph # (Auto) [place] # (Auto) Eos # (Auto) Seg Neutrophils % Seg Neuts % (Manual) Baso # (Auto) Lymphocytes % (Manual) Monocytes % (Manual) Eosinophils % (Manual) Basophils % (Manual) Seg Neutrophils # Seg Neutrophils # Man Lymphocytes # (Manual) Monocytes # (Manual) Eosinophils # (Manual) Nucleated RBC % Basophils # (Manual) PT INR APTT Heparin Anti-Xa Level 0.10 L ABG pH POC ABG pO2 ABG pO2 ABG HCO3 ABG O2 Saturation ABG Base Excess POC ABG pCO2 ABG Hemoglobin ABG Oxyhemoglobin ABG Chloride ABG Glucose Oxyhemoglobin Sodium Potassium Chloride Carbon Dioxide BUN Creatinine Glucose POC Glucose 180 H 163 H Lactic Acid Calcium Phosphorus Magnesium AST ALT Lactate Dehydrogenase Total Bilirubin Direct Bilirubin CK-MB (CK-2) C-Reactive Protein NT-Pro-B Natriuret Pep Total Protein Albumin Arterial Blood Glucose Urine WBC (Auto) Urine Creatinine 01/03/20 01/03/20 01/03/20 06:50 07:25 07:45 WBC 12.1 H RBC 3.35 L Hgb 9.0 L Hct 28.9 L MCHC 31 L RDW 16.6 H MCV MCH 27 L Lymph % (Auto) 13.0 L [place] % (Auto) 8.6 H [place] # Eos # Lymph # (Auto) [place] # (Auto) 1.0 H Eos # (Auto) Seg Neutrophils % 75.9 H Seg Neuts % (Manual) Baso # (Auto) Lymphocytes % (Manual) Monocytes % (Manual) Eosinophils % (Manual) Basophils % (Manual) Seg Neutrophils # 9.2 H Seg Neutrophils # Man Lymphocytes # (Manual) Monocytes # (Manual) Eosinophils # (Manual) Nucleated RBC % Basophils # (Manual) PT INR APTT Heparin Anti-Xa Level 0.29 L ABG pH POC ABG pO2 ABG pO2 ABG HCO3 ABG O2 Saturation ABG Base Excess POC ABG pCO2 ABG Hemoglobin ABG Oxyhemoglobin ABG Chloride ABG Glucose Oxyhemoglobin Sodium Potassium 3.3 L D Chloride Carbon Dioxide 35 H D BUN 23 H Creatinine 0.6 L Glucose 149 H POC Glucose Lactic Acid Calcium Phosphorus Magnesium AST ALT 88 H Lactate Dehydrogenase Total Bilirubin Direct Bilirubin CK-MB (CK-2) C-Reactive Protein NT-Pro-B Natriuret Pep Total Protein 6.2 L Albumin 2.9 L Arterial Blood Glucose Urine WBC (Auto) Urine Creatinine 01/03/20 01/03/20 01/03/20 12:05 17:42 18:30 WBC RBC Hgb Hct MCHC RDW MCV MCH Lymph % (Auto) [place] % (Auto) [place] # Eos # Lymph # (Auto) [place] # (Auto) Eos # (Auto) Seg Neutrophils % Seg Neuts % (Manual) Baso # (Auto) Lymphocytes % (Manual) Monocytes % (Manual) Eosinophils % (Manual) Basophils % (Manual) Seg Neutrophils # Seg Neutrophils # Man Lymphocytes # (Manual) Monocytes # (Manual) Eosinophils # (Manual) Nucleated RBC % Basophils # (Manual) PT INR APTT Heparin Anti-Xa Level ABG pH POC ABG pO2 ABG pO2 70.7 L ABG HCO3 36.1 H ABG O2 Saturation 94.4 L ABG Base Excess 10.0 H POC ABG pCO2 ABG Hemoglobin 9.7 L ABG Oxyhemoglobin ABG Chloride ABG Glucose Oxyhemoglobin 91.8 L Sodium Potassium Chloride Carbon Dioxide BUN Creatinine Glucose POC Glucose 128 H 132 H Lactic Acid Calcium Phosphorus Magnesium AST ALT Lactate Dehydrogenase Total Bilirubin Direct Bilirubin CK-MB (CK-2) C-Reactive Protein NT-Pro-B Natriuret Pep Total Protein Albumin Arterial Blood Glucose Urine WBC (Auto) Urine Creatinine 01/04/20 01/04/20 01/04/20 00:10 04:26 05:23 WBC RBC Hgb Hct MCHC RDW MCV MCH Lymph % (Auto) [place] % (Auto) [place] # Eos # Lymph # (Auto) [place] # (Auto) Eos # (Auto) Seg Neutrophils % Seg Neuts % (Manual) Baso # (Auto) Lymphocytes % (Manual) Monocytes % (Manual) Eosinophils % (Manual) Basophils % (Manual) Seg Neutrophils # Seg Neutrophils # Man Lymphocytes # (Manual) Monocytes # (Manual) Eosinophils # (Manual) Nucleated RBC % Basophils # (Manual) PT INR APTT Heparin Anti-Xa Level 0.16 L ABG pH POC ABG pO2 ABG pO2 ABG HCO3 ABG O2 Saturation ABG Base Excess POC ABG pCO2 ABG Hemoglobin ABG Oxyhemoglobin ABG Chloride ABG Glucose Oxyhemoglobin Sodium Potassium Chloride Carbon Dioxide BUN Creatinine Glucose POC Glucose 121 H 119 H Lactic Acid Calcium Phosphorus Magnesium AST ALT Lactate Dehydrogenase Total Bilirubin Direct Bilirubin CK-MB (CK-2) C-Reactive Protein NT-Pro-B Natriuret Pep Total Protein Albumin Arterial Blood Glucose Urine WBC (Auto) Urine Creatinine 01/04/20 01/04/20 01/04/20 09:50 09:50 12:18 WBC 15.4 H RBC 3.30 L Hgb 8.7 L Hct 28.2 L MCHC 31 L RDW 17.0 H MCV MCH 26 L Lymph % (Auto) [place] % (Auto) 7.6 H [place] # Eos # Lymph # (Auto) [place] # (Auto) 1.2 H Eos # (Auto) Seg Neutrophils % 75.4 H Seg Neuts % (Manual) Baso # (Auto) Lymphocytes % (Manual) Monocytes % (Manual) Eosinophils % (Manual) Basophils % (Manual) Seg Neutrophils # 11.6 H Seg Neutrophils # Man Lymphocytes # (Manual) Monocytes # (Manual) Eosinophils # (Manual) Nucleated RBC % Basophils # (Manual) PT INR APTT Heparin Anti-Xa Level ABG pH POC ABG pO2 ABG pO2 ABG HCO3 ABG O2 Saturation ABG Base Excess POC ABG pCO2 ABG Hemoglobin ABG Oxyhemoglobin ABG Chloride ABG Glucose Oxyhemoglobin Sodium 148 H Potassium 3.5 L Chloride Carbon Dioxide 32 H BUN Creatinine 0.6 L Glucose 114 H POC Glucose 111 H Lactic Acid Calcium Phosphorus Magnesium AST ALT 59 H Lactate Dehydrogenase Total Bilirubin Direct Bilirubin CK-MB (CK-2) C-Reactive Protein NT-Pro-B Natriuret Pep Total Protein Albumin 2.6 L Arterial Blood Glucose Urine WBC (Auto) Urine Creatinine 01/05/20 01/05/20 01/05/20 04:05 04:05 05:19 WBC 11.7 H RBC 3.50 L Hgb 9.3 L Hct 29.9 L MCHC 31 L RDW 16.6 H MCV MCH 27 L Lymph % (Auto) 13.1 L [place] % (Auto) 9.7 H [place] # Eos # Lymph # (Auto) [place] # (Auto) 1.1 H Eos # (Auto) Seg Neutrophils % 74.0 H Seg Neuts % (Manual) Baso # (Auto) Lymphocytes % (Manual) Monocytes % (Manual) Eosinophils % (Manual) Basophils % (Manual) Seg Neutrophils # 8.6 H Seg Neutrophils # Man Lymphocytes # (Manual) Monocytes # (Manual) Eosinophils # (Manual) Nucleated RBC % Basophils # (Manual) PT INR APTT Heparin Anti-Xa Level ABG pH POC ABG pO2 ABG pO2 ABG HCO3 ABG O2 Saturation ABG Base Excess POC ABG pCO2 ABG Hemoglobin ABG Oxyhemoglobin ABG Chloride ABG Glucose Oxyhemoglobin Sodium 151 H Potassium Chloride Carbon Dioxide 34 H BUN Creatinine 0.7 L Glucose POC Glucose 112 H Lactic Acid Calcium Phosphorus Magnesium AST ALT 59 H Lactate Dehydrogenase Total Bilirubin Direct Bilirubin CK-MB (CK-2) C-Reactive Protein NT-Pro-B Natriuret Pep Total Protein 5.8 L Albumin 2.6 L Arterial Blood Glucose Urine WBC (Auto) Urine Creatinine 01/05/20 01/06/20 01/06/20 16:04 00:23 04:44 WBC RBC 3.36 L Hgb 8.9 L Hct 28.7 L MCHC 31 L RDW 16.9 H MCV MCH 26 L Lymph % (Auto) [place] % (Auto) 9.4 H [place] # Eos # Lymph # (Auto) [place] # (Auto) Eos # (Auto) Seg Neutrophils % Seg Neuts % (Manual) Baso # (Auto) Lymphocytes % (Manual) Monocytes % (Manual) Eosinophils % (Manual) Basophils % (Manual) Seg Neutrophils # Seg Neutrophils # Man Lymphocytes # (Manual) Monocytes # (Manual) Eosinophils # (Manual) Nucleated RBC % Basophils # (Manual) PT INR APTT Heparin Anti-Xa Level ABG pH POC ABG pO2 ABG pO2 ABG HCO3 ABG O2 Saturation ABG Base Excess POC ABG pCO2 ABG Hemoglobin ABG Oxyhemoglobin ABG Chloride ABG Glucose Oxyhemoglobin Sodium 151 H Potassium 3.2 L Chloride Carbon Dioxide 34 H BUN Creatinine 0.6 L Glucose POC Glucose 107 H Lactic Acid Calcium Phosphorus Magnesium AST ALT Lactate Dehydrogenase Total Bilirubin Direct Bilirubin CK-MB (CK-2) C-Reactive Protein NT-Pro-B Natriuret Pep Total Protein Albumin Arterial Blood Glucose Urine WBC (Auto) Urine Creatinine 01/06/20 01/06/20 01/06/20 04:44 05:33 12:04 WBC RBC Hgb Hct MCHC RDW MCV MCH Lymph % (Auto) [place] % (Auto) [place] # Eos # Lymph # (Auto) [place] # (Auto) Eos # (Auto) Seg Neutrophils % Seg Neuts % (Manual) Baso # (Auto) Lymphocytes % (Manual) Monocytes % (Manual) Eosinophils % (Manual) Basophils % (Manual) Seg Neutrophils # Seg Neutrophils # Man Lymphocytes # (Manual) Monocytes # (Manual) Eosinophils # (Manual) Nucleated RBC % Basophils # (Manual) PT INR APTT Heparin Anti-Xa Level ABG pH POC ABG pO2 ABG pO2 ABG HCO3 ABG O2 Saturation ABG Base Excess POC ABG pCO2 ABG Hemoglobin ABG Oxyhemoglobin ABG Chloride ABG Glucose Oxyhemoglobin Sodium 151 H Potassium 3.4 L Chloride Carbon Dioxide 33 H BUN Creatinine 0.6 L Glucose 118 H POC Glucose 118 H 123 H Lactic Acid Calcium Phosphorus Magnesium AST ALT Lactate Dehydrogenase Total Bilirubin Direct Bilirubin CK-MB (CK-2) C-Reactive Protein NT-Pro-B Natriuret Pep Total Protein 6.2 L Albumin 2.6 L Arterial Blood Glucose Urine WBC (Auto) Urine Creatinine 01/06/20 01/07/20 01/07/20 17:54 00:06 04:10 WBC RBC 3.42 L Hgb 8.9 L Hct 29.0 L MCHC 31 L RDW 17.1 H MCV MCH 26 L Lymph % (Auto) [place] % (Auto) 8.4 H [place] # Eos # Lymph # (Auto) [place] # (Auto) Eos # (Auto) Seg Neutrophils % Seg Neuts % (Manual) Baso # (Auto) Lymphocytes % (Manual) Monocytes % (Manual) Eosinophils % (Manual) Basophils % (Manual) Seg Neutrophils # Seg Neutrophils # Man Lymphocytes # (Manual) Monocytes # (Manual) Eosinophils # (Manual) Nucleated RBC % Basophils # (Manual) PT INR APTT Heparin Anti-Xa Level ABG pH POC ABG pO2 ABG pO2 ABG HCO3 ABG O2 Saturation ABG Base Excess POC ABG pCO2 ABG Hemoglobin ABG Oxyhemoglobin ABG Chloride ABG Glucose Oxyhemoglobin Sodium Potassium Chloride Carbon Dioxide BUN Creatinine Glucose POC Glucose 112 H 126 H Lactic Acid Calcium Phosphorus Magnesium AST ALT Lactate Dehydrogenase Total Bilirubin Direct Bilirubin CK-MB (CK-2) C-Reactive Protein NT-Pro-B Natriuret Pep Total Protein Albumin Arterial Blood Glucose Urine WBC (Auto) Urine Creatinine 01/07/20 01/07/20 01/07/20 04:10 05:59 12:27 WBC RBC Hgb Hct MCHC RDW MCV MCH Lymph % (Auto) [place] % (Auto) [place] # Eos # Lymph # (Auto) [place] # (Auto) Eos # (Auto) Seg Neutrophils % Seg Neuts % (Manual) Baso # (Auto) Lymphocytes % (Manual) Monocytes % (Manual) Eosinophils % (Manual) Basophils % (Manual) Seg Neutrophils # Seg Neutrophils # Man Lymphocytes # (Manual) Monocytes # (Manual) Eosinophils # (Manual) Nucleated RBC % Basophils # (Manual) PT INR APTT Heparin Anti-Xa Level ABG pH POC ABG pO2 ABG pO2 ABG HCO3 ABG O2 Saturation ABG Base Excess POC ABG pCO2 ABG Hemoglobin ABG Oxyhemoglobin ABG Chloride ABG Glucose Oxyhemoglobin Sodium 153 H Potassium 3.5 L Chloride Carbon Dioxide 34 H BUN Creatinine 0.6 L Glucose 121 H POC Glucose 121 H 126 H Lactic Acid Calcium Phosphorus Magnesium AST ALT Lactate Dehydrogenase Total Bilirubin Direct Bilirubin CK-MB (CK-2) C-Reactive Protein NT-Pro-B Natriuret Pep Total Protein 5.9 L Albumin 2.4 L Arterial Blood Glucose Urine WBC (Auto) Urine Creatinine 01/07/20 01/08/20 01/08/20 18:12 00:03 05:41 WBC RBC Hgb Hct MCHC RDW MCV MCH Lymph % (Auto) [place] % (Auto) [place] # Eos # Lymph # (Auto) [place] # (Auto) Eos # (Auto) Seg Neutrophils % Seg Neuts % (Manual) Baso # (Auto) Lymphocytes % (Manual) Monocytes % (Manual) Eosinophils % (Manual) Basophils % (Manual) Seg Neutrophils # Seg Neutrophils # Man Lymphocytes # (Manual) Monocytes # (Manual) Eosinophils # (Manual) Nucleated RBC % Basophils # (Manual) PT INR APTT Heparin Anti-Xa Level ABG pH POC ABG pO2 ABG pO2 ABG HCO3 ABG O2 Saturation ABG Base Excess POC ABG pCO2 ABG Hemoglobin ABG Oxyhemoglobin ABG Chloride ABG Glucose Oxyhemoglobin Sodium Potassium Chloride Carbon Dioxide BUN Creatinine Glucose POC Glucose 124 H 130 H 138 H Lactic Acid Calcium Phosphorus Magnesium AST ALT Lactate Dehydrogenase Total Bilirubin Direct Bilirubin CK-MB (CK-2) C-Reactive Protein NT-Pro-B Natriuret Pep Total Protein Albumin Arterial Blood Glucose Urine WBC (Auto) Urine Creatinine 01/08/20 01/08/20 01/08/20 09:28 11:42 18:21 WBC RBC Hgb Hct MCHC RDW MCV MCH Lymph % (Auto) [place] % (Auto) [place] # Eos # Lymph # (Auto) [place] # (Auto) Eos # (Auto) Seg Neutrophils % Seg Neuts % (Manual) Baso # (Auto) Lymphocytes % (Manual) Monocytes % (Manual) Eosinophils % (Manual) Basophils % (Manual) Seg Neutrophils # Seg Neutrophils # Man Lymphocytes # (Manual) Monocytes # (Manual) Eosinophils # (Manual) Nucleated RBC % Basophils # (Manual) PT INR APTT Heparin Anti-Xa Level ABG pH POC ABG pO2 ABG pO2 ABG HCO3 ABG O2 Saturation ABG Base Excess POC ABG pCO2 ABG Hemoglobin ABG Oxyhemoglobin ABG Chloride ABG Glucose Oxyhemoglobin Sodium Potassium Chloride Carbon Dioxide BUN Creatinine Glucose POC Glucose 181 H 150 H 129 H Lactic Acid Calcium Phosphorus Magnesium AST ALT Lactate Dehydrogenase Total Bilirubin Direct Bilirubin CK-MB (CK-2) C-Reactive Protein NT-Pro-B Natriuret Pep Total Protein Albumin Arterial Blood Glucose Urine WBC (Auto) Urine Creatinine 01/08/20 01/08/20 01/09/20 19:25 23:55 04:11 WBC RBC 3.43 L Hgb 8.9 L Hct 28.7 L MCHC 31 L RDW 17.6 H MCV MCH 26 L Lymph % (Auto) [place] % (Auto) 8.6 H [place] # Eos # Lymph # (Auto) [place] # (Auto) Eos # (Auto) Seg Neutrophils % Seg Neuts % (Manual) Baso # (Auto) Lymphocytes % (Manual) Monocytes % (Manual) Eosinophils % (Manual) Basophils % (Manual) Seg Neutrophils # Seg Neutrophils # Man Lymphocytes # (Manual) Monocytes # (Manual) Eosinophils # (Manual) Nucleated RBC % Basophils # (Manual) PT INR APTT Heparin Anti-Xa Level ABG pH POC ABG pO2 ABG pO2 ABG HCO3 ABG O2 Saturation ABG Base Excess POC ABG pCO2 ABG Hemoglobin ABG Oxyhemoglobin ABG Chloride ABG Glucose Oxyhemoglobin Sodium Potassium Chloride Carbon Dioxide BUN Creatinine 0.7 L Glucose 117 H POC Glucose 132 H Lactic Acid Calcium Phosphorus Magnesium AST ALT Lactate Dehydrogenase Total Bilirubin Direct Bilirubin CK-MB (CK-2) C-Reactive Protein NT-Pro-B Natriuret Pep Total Protein Albumin Arterial Blood Glucose Urine WBC (Auto) Urine Creatinine 01/09/20 01/09/20 01/09/20 04:11 05:38 22:58 WBC RBC Hgb Hct MCHC RDW MCV MCH Lymph % (Auto) [place] % (Auto) [place] # Eos # Lymph # (Auto) [place] # (Auto) Eos # (Auto) Seg Neutrophils % Seg Neuts % (Manual) Baso # (Auto) Lymphocytes % (Manual) Monocytes % (Manual) Eosinophils % (Manual) Basophils % (Manual) Seg Neutrophils # Seg Neutrophils # Man Lymphocytes # (Manual) Monocytes # (Manual) Eosinophils # (Manual) Nucleated RBC % Basophils # (Manual) PT INR APTT Heparin Anti-Xa Level ABG pH POC ABG pO2 ABG pO2 ABG HCO3 ABG O2 Saturation ABG Base Excess POC ABG pCO2 ABG Hemoglobin ABG Oxyhemoglobin ABG Chloride ABG Glucose Oxyhemoglobin Sodium 147 H Potassium 3.3 L D Chloride Carbon Dioxide 32 H BUN Creatinine 0.6 L Glucose 106 H POC Glucose 107 H 113 H Lactic Acid Calcium Phosphorus Magnesium AST ALT Lactate Dehydrogenase Total Bilirubin Direct Bilirubin CK-MB (CK-2) C-Reactive Protein NT-Pro-B Natriuret Pep Total Protein Albumin Arterial Blood Glucose Urine WBC (Auto) Urine Creatinine 01/10/20 01/10/20 01/10/20 04:05 11:36 17:54 WBC RBC Hgb Hct MCHC RDW MCV MCH Lymph % (Auto) [place] % (Auto) [place] # Eos # Lymph # (Auto) [place] # (Auto) Eos # (Auto) Seg Neutrophils % Seg Neuts % (Manual) Baso # (Auto) Lymphocytes % (Manual) Monocytes % (Manual) Eosinophils % (Manual) Basophils % (Manual) Seg Neutrophils # Seg Neutrophils # Man Lymphocytes # (Manual) Monocytes # (Manual) Eosinophils # (Manual) Nucleated RBC % Basophils # (Manual) PT INR APTT Heparin Anti-Xa Level ABG pH POC ABG pO2 ABG pO2 ABG HCO3 ABG O2 Saturation ABG Base Excess POC ABG pCO2 ABG Hemoglobin ABG Oxyhemoglobin ABG Chloride ABG Glucose Oxyhemoglobin Sodium Potassium Chloride Carbon Dioxide BUN Creatinine 0.7 L Glucose 110 H POC Glucose 129 H 117 H Lactic Acid Calcium Phosphorus Magnesium AST ALT Lactate Dehydrogenase Total Bilirubin Direct Bilirubin CK-MB (CK-2) C-Reactive Protein NT-Pro-B Natriuret Pep Total Protein Albumin Arterial Blood Glucose Urine WBC (Auto) Urine Creatinine 01/10/20 01/11/20 01/11/20 23:52 03:19 12:09 WBC RBC Hgb Hct MCHC RDW MCV MCH Lymph % (Auto) [place] % (Auto) [place] # Eos # Lymph # (Auto) [place] # (Auto) Eos # (Auto) Seg Neutrophils % Seg Neuts % (Manual) Baso # (Auto) Lymphocytes % (Manual) Monocytes % (Manual) Eosinophils % (Manual) Basophils % (Manual) Seg Neutrophils # Seg Neutrophils # Man Lymphocytes # (Manual) Monocytes # (Manual) Eosinophils # (Manual) Nucleated RBC % Basophils # (Manual) PT INR APTT Heparin Anti-Xa Level ABG pH POC ABG pO2 ABG pO2 ABG HCO3 ABG O2 Saturation ABG Base Excess POC ABG pCO2 ABG Hemoglobin ABG Oxyhemoglobin ABG Chloride ABG Glucose Oxyhemoglobin Sodium Potassium Chloride Carbon Dioxide BUN Creatinine Glucose POC Glucose 117 H 136 H 115 H Lactic Acid Calcium Phosphorus Magnesium AST ALT Lactate Dehydrogenase Total Bilirubin Direct Bilirubin CK-MB (CK-2) C-Reactive Protein NT-Pro-B Natriuret Pep Total Protein Albumin Arterial Blood Glucose Urine WBC (Auto) Urine Creatinine 01/11/20 01/11/20 01/12/20 18:27 23:28 00:23 WBC RBC Hgb 9.8 L Hct 31.6 L MCHC 31 L RDW 17.8 H MCV 83 L MCH 26 L Lymph % (Auto) [place] % (Auto) 8.0 H [place] # Eos # Lymph # (Auto) [place] # (Auto) Eos # (Auto) Seg Neutrophils % Seg Neuts % (Manual) Baso # (Auto) Lymphocytes % (Manual) Monocytes % (Manual) Eosinophils % (Manual) Basophils % (Manual) Seg Neutrophils # Seg Neutrophils # Man Lymphocytes # (Manual) Monocytes # (Manual) Eosinophils # (Manual) Nucleated RBC % Basophils # (Manual) PT INR APTT Heparin Anti-Xa Level ABG pH POC ABG pO2 ABG pO2 ABG HCO3 ABG O2 Saturation ABG Base Excess POC ABG pCO2 ABG Hemoglobin ABG Oxyhemoglobin ABG Chloride ABG Glucose Oxyhemoglobin Sodium Potassium Chloride Carbon Dioxide BUN Creatinine Glucose POC Glucose 118 H 122 H Lactic Acid Calcium Phosphorus Magnesium AST ALT Lactate Dehydrogenase Total Bilirubin Direct Bilirubin CK-MB (CK-2) C-Reactive Protein NT-Pro-B Natriuret Pep Total Protein Albumin Arterial Blood Glucose Urine WBC (Auto) Urine Creatinine 01/12/20 01/12/20 01/12/20 00:23 04:18 04:18 WBC RBC Hgb 9.6 L Hct 30.9 L MCHC 31 L RDW 17.3 H MCV 81 L MCH 25 L Lymph % (Auto) [place] % (Auto) [place] # Eos # Lymph # (Auto) [place] # (Auto) Eos # (Auto) Seg Neutrophils % Seg Neuts % (Manual) Baso # (Auto) Lymphocytes % (Manual) Monocytes % (Manual) Eosinophils % (Manual) Basophils % (Manual) Seg Neutrophils # Seg Neutrophils # Man Lymphocytes # (Manual) Monocytes # (Manual) Eosinophils # (Manual) Nucleated RBC % Basophils # (Manual) PT INR APTT Heparin Anti-Xa Level ABG pH POC ABG pO2 ABG pO2 ABG HCO3 ABG O2 Saturation ABG Base Excess POC ABG pCO2 ABG Hemoglobin ABG Oxyhemoglobin ABG Chloride ABG Glucose Oxyhemoglobin Sodium Potassium Chloride Carbon Dioxide BUN Creatinine 0.7 L 0.7 L Glucose 111 H 108 H POC Glucose Lactic Acid Calcium Phosphorus Magnesium AST ALT Lactate Dehydrogenase Total Bilirubin Direct Bilirubin CK-MB (CK-2) C-Reactive Protein NT-Pro-B Natriuret Pep Total Protein Albumin 2.6 L Arterial Blood Glucose Urine WBC (Auto) Urine Creatinine 01/12/20 01/12/20 01/12/20 06:03 12:27 13:58 WBC RBC Hgb Hct MCHC RDW MCV MCH Lymph % (Auto) [place] % (Auto) [place] # Eos # Lymph # (Auto) [place] # (Auto) Eos # (Auto) Seg Neutrophils % Seg Neuts % (Manual) Baso # (Auto) Lymphocytes % (Manual) Monocytes % (Manual) Eosinophils % (Manual) Basophils % (Manual) Seg Neutrophils # Seg Neutrophils # Man Lymphocytes # (Manual) Monocytes # (Manual) Eosinophils # (Manual) Nucleated RBC % Basophils # (Manual) PT INR APTT Heparin Anti-Xa Level ABG pH 7.453 H POC ABG pO2 76.6 L ABG pO2 ABG HCO3 ABG O2 Saturation ABG Base Excess POC ABG pCO2 ABG Hemoglobin 10.3 L ABG Oxyhemoglobin ABG Chloride ABG Glucose 99 H Oxyhemoglobin Sodium Potassium Chloride Carbon Dioxide BUN Creatinine Glucose POC Glucose 128 H 121 H Lactic Acid Calcium Phosphorus Magnesium AST ALT Lactate Dehydrogenase Total Bilirubin Direct Bilirubin CK-MB (CK-2) C-Reactive Protein NT-Pro-B Natriuret Pep Total Protein Albumin Arterial Blood Glucose 99 H Urine WBC (Auto) Urine Creatinine 01/12/20 01/13/20 01/13/20 18:24 12:01 17:46 WBC RBC Hgb Hct MCHC RDW MCV MCH Lymph % (Auto) [place] % (Auto) [place] # Eos # Lymph # (Auto) [place] # (Auto) Eos # (Auto) Seg Neutrophils % Seg Neuts % (Manual) Baso # (Auto) Lymphocytes % (Manual) Monocytes % (Manual) Eosinophils % (Manual) Basophils % (Manual) Seg Neutrophils # Seg Neutrophils # Man Lymphocytes # (Manual) Monocytes # (Manual) Eosinophils # (Manual) Nucleated RBC % Basophils # (Manual) PT INR APTT Heparin Anti-Xa Level ABG pH POC ABG pO2 ABG pO2 ABG HCO3 ABG O2 Saturation ABG Base Excess POC ABG pCO2 ABG Hemoglobin ABG Oxyhemoglobin ABG Chloride ABG Glucose Oxyhemoglobin Sodium Potassium Chloride Carbon Dioxide BUN Creatinine Glucose POC Glucose 119 H 107 H 124 H Lactic Acid Calcium Phosphorus Magnesium AST ALT Lactate Dehydrogenase Total Bilirubin Direct Bilirubin CK-MB (CK-2) C-Reactive Protein NT-Pro-B Natriuret Pep Total Protein Albumin Arterial Blood Glucose Urine WBC (Auto) Urine Creatinine 01/13/20 01/14/20 01/14/20 20:40 00:10 05:33 WBC RBC Hgb Hct MCHC RDW MCV MCH Lymph % (Auto) [place] % (Auto) [place] # Eos # Lymph # (Auto) [place] # (Auto) Eos # (Auto) Seg Neutrophils % Seg Neuts % (Manual) Baso # (Auto) Lymphocytes % (Manual) Monocytes % (Manual) Eosinophils % (Manual) Basophils % (Manual) Seg Neutrophils # Seg Neutrophils # Man Lymphocytes # (Manual) Monocytes # (Manual) Eosinophils # (Manual) Nucleated RBC % Basophils # (Manual) PT INR APTT Heparin Anti-Xa Level ABG pH POC ABG pO2 ABG pO2 65.3 L ABG HCO3 31.8 H ABG O2 Saturation 93.5 L ABG Base Excess 6.7 H POC ABG pCO2 ABG Hemoglobin 13.3 L ABG Oxyhemoglobin ABG Chloride ABG Glucose Oxyhemoglobin 90.9 L Sodium Potassium Chloride Carbon Dioxide BUN Creatinine Glucose POC Glucose 111 H 111 H Lactic Acid Calcium Phosphorus Magnesium AST ALT Lactate Dehydrogenase Total Bilirubin Direct Bilirubin CK-MB (CK-2) C-Reactive Protein NT-Pro-B Natriuret Pep Total Protein Albumin Arterial Blood Glucose Urine WBC (Auto) Urine Creatinine 01/14/20 01/14/20 01/14/20 12:10 16:14 16:14 WBC RBC Hgb 10.6 L Hct 34.2 L MCHC 31 L RDW 18.3 H MCV 83 L MCH 26 L Lymph % (Auto) [place] % (Auto) 7.4 H [place] # Eos # Lymph # (Auto) [place] # (Auto) Eos # (Auto) Seg Neutrophils % 71.9 H Seg Neuts % (Manual) Baso # (Auto) Lymphocytes % (Manual) Monocytes % (Manual) Eosinophils % (Manual) Basophils % (Manual) Seg Neutrophils # Seg Neutrophils # Man Lymphocytes # (Manual) Monocytes # (Manual) Eosinophils # (Manual) Nucleated RBC % Basophils # (Manual) PT INR APTT Heparin Anti-Xa Level ABG pH POC ABG pO2 ABG pO2 ABG HCO3 ABG O2 Saturation ABG Base Excess POC ABG pCO2 ABG Hemoglobin ABG Oxyhemoglobin ABG Chloride ABG Glucose Oxyhemoglobin Sodium Potassium Chloride Carbon Dioxide 31 H BUN Creatinine 0.6 L Glucose 131 H POC Glucose 139 H Lactic Acid Calcium Phosphorus Magnesium AST ALT Lactate Dehydrogenase Total Bilirubin Direct Bilirubin CK-MB (CK-2) C-Reactive Protein NT-Pro-B Natriuret Pep Total Protein Albumin Arterial Blood Glucose Urine WBC (Auto) Urine Creatinine 01/14/20 01/15/20 01/15/20 18:05 00:52 05:35 WBC RBC Hgb Hct MCHC RDW MCV MCH Lymph % (Auto) [place] % (Auto) [place] # Eos # Lymph # (Auto) [place] # (Auto) Eos # (Auto) Seg Neutrophils % Seg Neuts % (Manual) Baso # (Auto) Lymphocytes % (Manual) Monocytes % (Manual) Eosinophils % (Manual) Basophils % (Manual) Seg Neutrophils # Seg Neutrophils # Man Lymphocytes # (Manual) Monocytes # (Manual) Eosinophils # (Manual) Nucleated RBC % Basophils # (Manual) PT INR APTT Heparin Anti-Xa Level ABG pH POC ABG pO2 ABG pO2 ABG HCO3 ABG O2 Saturation ABG Base Excess POC ABG pCO2 ABG Hemoglobin ABG Oxyhemoglobin ABG Chloride ABG Glucose Oxyhemoglobin Sodium Potassium Chloride Carbon Dioxide BUN Creatinine Glucose POC Glucose 147 H 140 H 159 H Lactic Acid Calcium Phosphorus Magnesium AST ALT Lactate Dehydrogenase Total Bilirubin Direct Bilirubin CK-MB (CK-2) C-Reactive Protein NT-Pro-B Natriuret Pep Total Protein Albumin Arterial Blood Glucose Urine WBC (Auto) Urine Creatinine 01/15/20 01/15/20 01/16/20 12:52 17:43 00:32 WBC RBC Hgb Hct MCHC RDW MCV MCH Lymph % (Auto) [place] % (Auto) [place] # Eos # Lymph # (Auto) [place] # (Auto) Eos # (Auto) Seg Neutrophils % Seg Neuts % (Manual) Baso # (Auto) Lymphocytes % (Manual) Monocytes % (Manual) Eosinophils % (Manual) Basophils % (Manual) Seg Neutrophils # Seg Neutrophils # Man Lymphocytes # (Manual) Monocytes # (Manual) Eosinophils # (Manual) Nucleated RBC % Basophils # (Manual) PT INR APTT Heparin Anti-Xa Level ABG pH POC ABG pO2 ABG pO2 ABG HCO3 ABG O2 Saturation ABG Base Excess POC ABG pCO2 ABG Hemoglobin ABG Oxyhemoglobin ABG Chloride ABG Glucose Oxyhemoglobin Sodium Potassium Chloride Carbon Dioxide BUN Creatinine Glucose POC Glucose 164 H 167 H 153 H Lactic Acid Calcium Phosphorus Magnesium AST ALT Lactate Dehydrogenase Total Bilirubin Direct Bilirubin CK-MB (CK-2) C-Reactive Protein NT-Pro-B Natriuret Pep Total Protein Albumin Arterial Blood Glucose Urine WBC (Auto) Urine Creatinine 01/16/20 01/16/20 01/17/20 05:46 11:48 06:38 WBC RBC Hgb Hct MCHC RDW MCV MCH Lymph % (Auto) [place] % (Auto) [place] # Eos # Lymph # (Auto) [place] # (Auto) Eos # (Auto) Seg Neutrophils % Seg Neuts % (Manual) Baso # (Auto) Lymphocytes % (Manual) Monocytes % (Manual) Eosinophils % (Manual) Basophils % (Manual) Seg Neutrophils # Seg Neutrophils # Man Lymphocytes # (Manual) Monocytes # (Manual) Eosinophils # (Manual) Nucleated RBC % Basophils # (Manual) PT INR APTT Heparin Anti-Xa Level ABG pH POC ABG pO2 ABG pO2 ABG HCO3 ABG O2 Saturation ABG Base Excess POC ABG pCO2 ABG Hemoglobin ABG Oxyhemoglobin ABG Chloride ABG Glucose Oxyhemoglobin Sodium Potassium Chloride Carbon Dioxide BUN Creatinine Glucose POC Glucose 163 H 155 H 116 H Lactic Acid Calcium Phosphorus Magnesium AST ALT Lactate Dehydrogenase Total Bilirubin Direct Bilirubin CK-MB (CK-2) C-Reactive Protein NT-Pro-B Natriuret Pep Total Protein Albumin Arterial Blood Glucose Urine WBC (Auto) Urine Creatinine 01/17/20 01/17/20 01/18/20 11:36 17:43 00:12 WBC RBC Hgb Hct MCHC RDW MCV MCH Lymph % (Auto) [place] % (Auto) [place] # Eos # Lymph # (Auto) [place] # (Auto) Eos # (Auto) Seg Neutrophils % Seg Neuts % (Manual) Baso # (Auto) Lymphocytes % (Manual) Monocytes % (Manual) Eosinophils % (Manual) Basophils % (Manual) Seg Neutrophils # Seg Neutrophils # Man Lymphocytes # (Manual) Monocytes # (Manual) Eosinophils # (Manual) Nucleated RBC % Basophils # (Manual) PT INR APTT Heparin Anti-Xa Level ABG pH POC ABG pO2 ABG pO2 ABG HCO3 ABG O2 Saturation ABG Base Excess POC ABG pCO2 ABG Hemoglobin ABG Oxyhemoglobin ABG Chloride ABG Glucose Oxyhemoglobin Sodium Potassium Chloride Carbon Dioxide BUN Creatinine Glucose POC Glucose 110 H 134 H 108 H Lactic Acid Calcium Phosphorus Magnesium AST ALT Lactate Dehydrogenase Total Bilirubin Direct Bilirubin CK-MB (CK-2) C-Reactive Protein NT-Pro-B Natriuret Pep Total Protein Albumin Arterial Blood Glucose Urine WBC (Auto) Urine Creatinine 01/18/20 01/18/20 01/18/20 05:37 06:46 06:46 WBC RBC Hgb 10.1 L Hct 32.2 L MCHC 31 L RDW 18.1 H MCV 81 L MCH 25 L Lymph % (Auto) [place] % (Auto) [place] # Eos # Lymph # (Auto) [place] # (Auto) Eos # (Auto) Seg Neutrophils % 71.9 H Seg Neuts % (Manual) Baso # (Auto) Lymphocytes % (Manual) Monocytes % (Manual) Eosinophils % (Manual) Basophils % (Manual) Seg Neutrophils # Seg Neutrophils # Man Lymphocytes # (Manual) Monocytes # (Manual) Eosinophils # (Manual) Nucleated RBC % Basophils # (Manual) PT INR APTT Heparin Anti-Xa Level ABG pH POC ABG pO2 ABG pO2 ABG HCO3 ABG O2 Saturation ABG Base Excess POC ABG pCO2 ABG Hemoglobin ABG Oxyhemoglobin ABG Chloride ABG Glucose Oxyhemoglobin Sodium Potassium Chloride Carbon Dioxide BUN Creatinine 0.7 L Glucose 155 H POC Glucose 168 H Lactic Acid Calcium Phosphorus Magnesium AST ALT Lactate Dehydrogenase Total Bilirubin Direct Bilirubin CK-MB (CK-2) C-Reactive Protein NT-Pro-B Natriuret Pep Total Protein Albumin Arterial Blood Glucose Urine WBC (Auto) Urine Creatinine 01/18/20 01/18/20 01/18/20 12:05 17:14 23:28 WBC RBC Hgb Hct MCHC RDW MCV MCH Lymph % (Auto) [place] % (Auto) [place] # Eos # Lymph # (Auto) [place] # (Auto) Eos # (Auto) Seg Neutrophils % Seg Neuts % (Manual) Baso # (Auto) Lymphocytes % (Manual) Monocytes % (Manual) Eosinophils % (Manual) Basophils % (Manual) Seg Neutrophils # Seg Neutrophils # Man Lymphocytes # (Manual) Monocytes # (Manual) Eosinophils # (Manual) Nucleated RBC % Basophils # (Manual) PT INR APTT Heparin Anti-Xa Level ABG pH POC ABG pO2 ABG pO2 ABG HCO3 ABG O2 Saturation ABG Base Excess POC ABG pCO2 ABG Hemoglobin ABG Oxyhemoglobin ABG Chloride ABG Glucose Oxyhemoglobin Sodium Potassium Chloride Carbon Dioxide BUN Creatinine Glucose POC Glucose 128 H 126 H 128 H Lactic Acid Calcium Phosphorus Magnesium AST ALT Lactate Dehydrogenase Total Bilirubin Direct Bilirubin CK-MB (CK-2) C-Reactive Protein NT-Pro-B Natriuret Pep Total Protein Albumin Arterial Blood Glucose Urine WBC (Auto) Urine Creatinine 01/19/20 01/19/20 01/19/20 05:39 12:33 17:36 WBC RBC Hgb Hct MCHC RDW MCV MCH Lymph % (Auto) [place] % (Auto) [place] # Eos # Lymph # (Auto) [place] # (Auto) Eos # (Auto) Seg Neutrophils % Seg Neuts % (Manual) Baso # (Auto) Lymphocytes % (Manual) Monocytes % (Manual) Eosinophils % (Manual) Basophils % (Manual) Seg Neutrophils # Seg Neutrophils # Man Lymphocytes # (Manual) Monocytes # (Manual) Eosinophils # (Manual) Nucleated RBC % Basophils # (Manual) PT INR APTT Heparin Anti-Xa Level ABG pH POC ABG pO2 ABG pO2 ABG HCO3 ABG O2 Saturation ABG Base Excess POC ABG pCO2 ABG Hemoglobin ABG Oxyhemoglobin ABG Chloride ABG Glucose Oxyhemoglobin Sodium Potassium Chloride Carbon Dioxide BUN Creatinine Glucose POC Glucose 164 H 171 H 152 H Lactic Acid Calcium Phosphorus Magnesium AST ALT Lactate Dehydrogenase Total Bilirubin Direct Bilirubin CK-MB (CK-2) C-Reactive Protein NT-Pro-B Natriuret Pep Total Protein Albumin Arterial Blood Glucose Urine WBC (Auto) Urine Creatinine 01/20/20 01/20/20 01/20/20 00:12 05:20 05:35 WBC RBC Hgb 9.2 L Hct 29.4 L MCHC 31 L RDW 17.9 H MCV 81 L MCH 25 L Lymph % (Auto) [place] % (Auto) [place] # Eos # Lymph # (Auto) [place] # (Auto) Eos # (Auto) Seg Neutrophils % Seg Neuts % (Manual) Baso # (Auto) Lymphocytes % (Manual) Monocytes % (Manual) Eosinophils % (Manual) Basophils % (Manual) Seg Neutrophils # Seg Neutrophils # Man Lymphocytes # (Manual) Monocytes # (Manual) Eosinophils # (Manual) Nucleated RBC % Basophils # (Manual) PT INR APTT Heparin Anti-Xa Level ABG pH POC ABG pO2 ABG pO2 ABG HCO3 ABG O2 Saturation ABG Base Excess POC ABG pCO2 ABG Hemoglobin ABG Oxyhemoglobin ABG Chloride ABG Glucose Oxyhemoglobin Sodium Potassium Chloride Carbon Dioxide BUN Creatinine Glucose POC Glucose 120 H 136 H Lactic Acid Calcium Phosphorus Magnesium AST ALT Lactate Dehydrogenase Total Bilirubin Direct Bilirubin CK-MB (CK-2) C-Reactive Protein NT-Pro-B Natriuret Pep Total Protein Albumin Arterial Blood Glucose Urine WBC (Auto) Urine Creatinine 01/20/20 01/20/20 01/20/20 05:40 11:58 14:55 WBC RBC Hgb 9.0 L Hct 28.3 L MCHC RDW MCV MCH Lymph % (Auto) [place] % (Auto) [place] # Eos # Lymph # (Auto) [place] # (Auto) Eos # (Auto) Seg Neutrophils % Seg Neuts % (Manual) Baso # (Auto) Lymphocytes % (Manual) Monocytes % (Manual) Eosinophils % (Manual) Basophils % (Manual) Seg Neutrophils # Seg Neutrophils # Man Lymphocytes # (Manual) Monocytes # (Manual) Eosinophils # (Manual) Nucleated RBC % Basophils # (Manual) PT INR APTT Heparin Anti-Xa Level ABG pH POC ABG pO2 ABG pO2 ABG HCO3 ABG O2 Saturation ABG Base Excess POC ABG pCO2 ABG Hemoglobin ABG Oxyhemoglobin ABG Chloride ABG Glucose Oxyhemoglobin Sodium Potassium Chloride Carbon Dioxide 32 H BUN 22 H Creatinine 0.7 L Glucose 128 H POC Glucose 152 H Lactic Acid Calcium Phosphorus Magnesium AST ALT Lactate Dehydrogenase Total Bilirubin Direct Bilirubin CK-MB (CK-2) C-Reactive Protein NT-Pro-B Natriuret Pep Total Protein Albumin Arterial Blood Glucose Urine WBC (Auto) Urine Creatinine 01/20/20 01/20/20 01/20/20 14:55 18:14 21:35 WBC RBC Hgb Hct MCHC RDW MCV MCH Lymph % (Auto) [place] % (Auto) [place] # Eos # Lymph # (Auto) [place] # (Auto) Eos # (Auto) Seg Neutrophils % Seg Neuts % (Manual) Baso # (Auto) Lymphocytes % (Manual) Monocytes % (Manual) Eosinophils % (Manual) Basophils % (Manual) Seg Neutrophils # Seg Neutrophils # Man Lymphocytes # (Manual) Monocytes # (Manual) Eosinophils # (Manual) Nucleated RBC % Basophils # (Manual) PT 20.4 H INR 1.72 H APTT 40.6 H Heparin Anti-Xa Level > 2.00 H ABG pH POC ABG pO2 ABG pO2 ABG HCO3 ABG O2 Saturation ABG Base Excess POC ABG pCO2 ABG Hemoglobin ABG Oxyhemoglobin ABG Chloride ABG Glucose Oxyhemoglobin Sodium Potassium Chloride Carbon Dioxide BUN Creatinine Glucose POC Glucose 150 H Lactic Acid Calcium Phosphorus Magnesium AST ALT Lactate Dehydrogenase Total Bilirubin Direct Bilirubin CK-MB (CK-2) C-Reactive Protein NT-Pro-B Natriuret Pep Total Protein Albumin Arterial Blood Glucose Urine WBC (Auto) Urine Creatinine 10/01/21/20 01/21/20 00:30 05:47 05:59 WBC RBC Hgb Hct MCHC RDW MCV MCH Lymph % (Auto) [place] % (Auto) [place] # Eos # Lymph # (Auto) [place] # (Auto) Eos # (Auto) Seg Neutrophils % Seg Neuts % (Manual) Baso # (Auto) Lymphocytes % (Manual) Monocytes % (Manual) Eosinophils % (Manual) Basophils % (Manual) Seg Neutrophils # Seg Neutrophils # Man Lymphocytes # (Manual) Monocytes # (Manual) Eosinophils # (Manual) Nucleated RBC % Basophils # (Manual) PT INR APTT Heparin Anti-Xa Level 1.93 H ABG pH POC ABG pO2 ABG pO2 ABG HCO3 ABG O2 Saturation ABG Base Excess POC ABG pCO2 ABG Hemoglobin ABG Oxyhemoglobin ABG Chloride ABG Glucose Oxyhemoglobin Sodium Potassium Chloride Carbon Dioxide BUN Creatinine Glucose POC Glucose 126 H 148 H Lactic Acid Calcium Phosphorus Magnesium AST ALT Lactate Dehydrogenase Total Bilirubin Direct Bilirubin CK-MB (CK-2) C-Reactive Protein NT-Pro-B Natriuret Pep Total Protein Albumin Arterial Blood Glucose Urine WBC (Auto) Urine Creatinine 01/21/20 01/21/20 01/21/20 12:32 18:20 23:54 WBC RBC Hgb Hct MCHC RDW MCV MCH Lymph % (Auto) [place] % (Auto) [place] # Eos # Lymph # (Auto) [place] # (Auto) Eos # (Auto) Seg Neutrophils % Seg Neuts % (Manual) Baso # (Auto) Lymphocytes % (Manual) Monocytes % (Manual) Eosinophils % (Manual) Basophils % (Manual) Seg Neutrophils # Seg Neutrophils # Man Lymphocytes # (Manual) Monocytes # (Manual) Eosinophils # (Manual) Nucleated RBC % Basophils # (Manual) PT INR APTT Heparin Anti-Xa Level 1.28 H ABG pH POC ABG pO2 ABG pO2 ABG HCO3 ABG O2 Saturation ABG Base Excess POC ABG pCO2 ABG Hemoglobin ABG Oxyhemoglobin ABG Chloride ABG Glucose Oxyhemoglobin Sodium Potassium Chloride Carbon Dioxide BUN Creatinine Glucose POC Glucose 112 H 146 H Lactic Acid Calcium Phosphorus Magnesium AST ALT Lactate Dehydrogenase Total Bilirubin Direct Bilirubin CK-MB (CK-2) C-Reactive Protein NT-Pro-B Natriuret Pep Total Protein Albumin Arterial Blood Glucose Urine WBC (Auto) Urine Creatinine 01/22/20 01/22/20 01/22/20 04:45 04:45 05:48 WBC RBC Hgb 9.3 L Hct 29.0 L MCHC RDW MCV MCH Lymph % (Auto) [place] % (Auto) [place] # Eos # Lymph # (Auto) [place] # (Auto) Eos # (Auto) Seg Neutrophils % Seg Neuts % (Manual) Baso # (Auto) Lymphocytes % (Manual) Monocytes % (Manual) Eosinophils % (Manual) Basophils % (Manual) Seg Neutrophils # Seg Neutrophils # Man Lymphocytes # (Manual) Monocytes # (Manual) Eosinophils # (Manual) Nucleated RBC % Basophils # (Manual) PT INR APTT Heparin Anti-Xa Level 1.34 H ABG pH POC ABG pO2 ABG pO2 ABG HCO3 ABG O2 Saturation ABG Base Excess POC ABG pCO2 ABG Hemoglobin ABG Oxyhemoglobin ABG Chloride ABG Glucose Oxyhemoglobin Sodium Potassium Chloride Carbon Dioxide BUN Creatinine Glucose POC Glucose 142 H Lactic Acid Calcium Phosphorus Magnesium AST ALT Lactate Dehydrogenase Total Bilirubin Direct Bilirubin CK-MB (CK-2) C-Reactive Protein NT-Pro-B Natriuret Pep Total Protein Albumin Arterial Blood Glucose Urine WBC (Auto) Urine Creatinine 01/22/20 01/22/20 01/22/20 08:09 08:22 09:58 WBC RBC Hgb Hct MCHC RDW MCV MCH Lymph % (Auto) [place] % (Auto) [place] # Eos # Lymph # (Auto) [place] # (Auto) Eos # (Auto) Seg Neutrophils % Seg Neuts % (Manual) Baso # (Auto) Lymphocytes % (Manual) Monocytes % (Manual) Eosinophils % (Manual) Basophils % (Manual) Seg Neutrophils # Seg Neutrophils # Man Lymphocytes # (Manual) Monocytes # (Manual) Eosinophils # (Manual) Nucleated RBC % Basophils # (Manual) PT 16.9 H INR 1.34 H APTT Heparin Anti-Xa Level ABG pH POC ABG pO2 ABG pO2 ABG HCO3 ABG O2 Saturation ABG Base Excess POC ABG pCO2 ABG Hemoglobin ABG Oxyhemoglobin ABG Chloride ABG Glucose Oxyhemoglobin Sodium Potassium Chloride 97.8 L Carbon Dioxide BUN 29 H Creatinine Glucose 128 H POC Glucose 131 H Lactic Acid Calcium Phosphorus Magnesium AST ALT Lactate Dehydrogenase Total Bilirubin Direct Bilirubin CK-MB (CK-2) C-Reactive Protein NT-Pro-B Natriuret Pep Total Protein Albumin Arterial Blood Glucose Urine WBC (Auto) Urine Creatinine 10/01/22/20 01/22/20 12:44 16:13 18:18 WBC RBC Hgb Hct MCHC RDW MCV MCH Lymph % (Auto) [place] % (Auto) [place] # Eos # Lymph # (Auto) [place] # (Auto) Eos # (Auto) Seg Neutrophils % Seg Neuts % (Manual) Baso # (Auto) Lymphocytes % (Manual) Monocytes % (Manual) Eosinophils % (Manual) Basophils % (Manual) Seg Neutrophils # Seg Neutrophils # Man Lymphocytes # (Manual) Monocytes # (Manual) Eosinophils # (Manual) Nucleated RBC % Basophils # (Manual) PT INR APTT Heparin Anti-Xa Level ABG pH POC ABG pO2 ABG pO2 ABG HCO3 ABG O2 Saturation ABG Base Excess POC ABG pCO2 ABG Hemoglobin ABG Oxyhemoglobin ABG Chloride ABG Glucose Oxyhemoglobin Sodium Potassium Chloride Carbon Dioxide BUN Creatinine Glucose POC Glucose 156 H 133 H 155 H Lactic Acid Calcium Phosphorus Magnesium AST ALT Lactate Dehydrogenase Total Bilirubin Direct Bilirubin CK-MB (CK-2) C-Reactive Protein NT-Pro-B Natriuret Pep Total Protein Albumin Arterial Blood Glucose Urine WBC (Auto) Urine Creatinine 01/22/20 01/23/20 01/23/20 23:22 05:37 12:59 WBC RBC Hgb Hct MCHC RDW MCV MCH Lymph % (Auto) [place] % (Auto) [place] # Eos # Lymph # (Auto) [place] # (Auto) Eos # (Auto) Seg Neutrophils % Seg Neuts % (Manual) Baso # (Auto) Lymphocytes % (Manual) Monocytes % (Manual) Eosinophils % (Manual) Basophils % (Manual) Seg Neutrophils # Seg Neutrophils # Man Lymphocytes # (Manual) Monocytes # (Manual) Eosinophils # (Manual) Nucleated RBC % Basophils # (Manual) PT INR APTT Heparin Anti-Xa Level ABG pH POC ABG pO2 ABG pO2 ABG HCO3 ABG O2 Saturation ABG Base Excess POC ABG pCO2 ABG Hemoglobin ABG Oxyhemoglobin ABG Chloride ABG Glucose Oxyhemoglobin Sodium Potassium Chloride Carbon Dioxide BUN Creatinine Glucose POC Glucose 148 H 163 H 175 H Lactic Acid Calcium Phosphorus Magnesium AST ALT Lactate Dehydrogenase Total Bilirubin Direct Bilirubin CK-MB (CK-2) C-Reactive Protein NT-Pro-B Natriuret Pep Total Protein Albumin Arterial Blood Glucose Urine WBC (Auto) Urine Creatinine 10/31/20 10/31/20 11/01/20 17:28 23:56 04:30 WBC RBC 3.46 L Hgb 8.8 L Hct 27.8 L MCHC RDW 18.2 H MCV 81 L MCH 25 L Lymph % (Auto) [place] % (Auto) 7.8 H [place] # Eos # Lymph # (Auto) [place] # (Auto) Eos # (Auto) Seg Neutrophils % Seg Neuts % (Manual) Baso # (Auto) Lymphocytes % (Manual) Monocytes % (Manual) Eosinophils % (Manual) Basophils % (Manual) Seg Neutrophils # Seg Neutrophils # Man Lymphocytes # (Manual) Monocytes # (Manual) Eosinophils # (Manual) Nucleated RBC % Basophils # (Manual) PT INR APTT Heparin Anti-Xa Level ABG pH POC ABG pO2 ABG pO2 ABG HCO3 ABG O2 Saturation ABG Base Excess POC ABG pCO2 ABG Hemoglobin ABG Oxyhemoglobin ABG Chloride ABG Glucose Oxyhemoglobin Sodium Potassium Chloride Carbon Dioxide BUN Creatinine Glucose POC Glucose 165 H 177 H Lactic Acid Calcium Phosphorus Magnesium AST ALT Lactate Dehydrogenase Total Bilirubin Direct Bilirubin CK-MB (CK-2) C-Reactive Protein NT-Pro-B Natriuret Pep Total Protein Albumin Arterial Blood Glucose Urine WBC (Auto) Urine Creatinine 01/24/20 01/24/20 01/24/20 04:30 07:18 12:06 WBC RBC Hgb Hct MCHC RDW MCV MCH Lymph % (Auto) [place] % (Auto) [place] # Eos # Lymph # (Auto) [place] # (Auto) Eos # (Auto) Seg Neutrophils % Seg Neuts % (Manual) Baso # (Auto) Lymphocytes % (Manual) Monocytes % (Manual) Eosinophils % (Manual) Basophils % (Manual) Seg Neutrophils # Seg Neutrophils # Man Lymphocytes # (Manual) Monocytes # (Manual) Eosinophils # (Manual) Nucleated RBC % Basophils # (Manual) PT INR APTT Heparin Anti-Xa Level ABG pH POC ABG pO2 ABG pO2 ABG HCO3 ABG O2 Saturation ABG Base Excess POC ABG pCO2 ABG Hemoglobin ABG Oxyhemoglobin ABG Chloride ABG Glucose Oxyhemoglobin Sodium Potassium Chloride 97.9 L Carbon Dioxide BUN 31 H Creatinine Glucose 146 H POC Glucose 151 H 133 H Lactic Acid Calcium Phosphorus Magnesium AST ALT Lactate Dehydrogenase Total Bilirubin Direct Bilirubin CK-MB (CK-2) C-Reactive Protein NT-Pro-B Natriuret Pep Total Protein Albumin Arterial Blood Glucose Urine WBC (Auto) Urine Creatinine 01/24/20 01/25/20 01/25/20 17:36 00:08 04:25 WBC RBC 3.50 L Hgb 8.7 L Hct 27.9 L MCHC 31 L RDW 18.2 H MCV 80 L MCH 25 L Lymph % (Auto) [place] % (Auto) 8.5 H [place] # Eos # Lymph # (Auto) [place] # (Auto) Eos # (Auto) Seg Neutrophils % Seg Neuts % (Manual) Baso # (Auto) Lymphocytes % (Manual) Monocytes % (Manual) Eosinophils % (Manual) Basophils % (Manual) Seg Neutrophils # Seg Neutrophils # Man Lymphocytes # (Manual) Monocytes # (Manual) Eosinophils # (Manual) Nucleated RBC % Basophils # (Manual) PT INR APTT Heparin Anti-Xa Level ABG pH POC ABG pO2 ABG pO2 ABG HCO3 ABG O2 Saturation ABG Base Excess POC ABG pCO2 ABG Hemoglobin ABG Oxyhemoglobin ABG Chloride ABG Glucose Oxyhemoglobin Sodium Potassium Chloride Carbon Dioxide BUN Creatinine Glucose POC Glucose 133 H 129 H Lactic Acid Calcium Phosphorus Magnesium AST ALT Lactate Dehydrogenase Total Bilirubin Direct Bilirubin CK-MB (CK-2) C-Reactive Protein NT-Pro-B Natriuret Pep Total Protein Albumin Arterial Blood Glucose Urine WBC (Auto) Urine Creatinine 01/25/20 01/25/20 01/25/20 04:25 05:38 11:52 WBC RBC Hgb Hct MCHC RDW MCV MCH Lymph % (Auto) [place] % (Auto) [place] # Eos # Lymph # (Auto) [place] # (Auto) Eos # (Auto) Seg Neutrophils % Seg Neuts % (Manual) Baso # (Auto) Lymphocytes % (Manual) Monocytes % (Manual) Eosinophils % (Manual) Basophils % (Manual) Seg Neutrophils # Seg Neutrophils # Man Lymphocytes # (Manual) Monocytes # (Manual) Eosinophils # (Manual) Nucleated RBC % Basophils # (Manual) PT INR APTT Heparin Anti-Xa Level ABG pH POC ABG pO2 ABG pO2 ABG HCO3 ABG O2 Saturation ABG Base Excess POC ABG pCO2 ABG Hemoglobin ABG Oxyhemoglobin ABG Chloride ABG Glucose Oxyhemoglobin Sodium Potassium Chloride Carbon Dioxide BUN 30 H Creatinine Glucose 134 H POC Glucose 129 H 134 H Lactic Acid Calcium Phosphorus Magnesium AST ALT Lactate Dehydrogenase Total Bilirubin Direct Bilirubin CK-MB (CK-2) C-Reactive Protein NT-Pro-B Natriuret Pep Total Protein Albumin Arterial Blood Glucose Urine WBC (Auto) Urine Creatinine 01/25/20 01/25/20 01/26/20 17:13 21:02 00:59 WBC RBC Hgb Hct MCHC RDW MCV MCH Lymph % (Auto) [place] % (Auto) [place] # Eos # Lymph # (Auto) [place] # (Auto) Eos # (Auto) Seg Neutrophils % Seg Neuts % (Manual) Baso # (Auto) Lymphocytes % (Manual) Monocytes % (Manual) Eosinophils % (Manual) Basophils % (Manual) Seg Neutrophils # Seg Neutrophils # Man Lymphocytes # (Manual) Monocytes # (Manual) Eosinophils # (Manual) Nucleated RBC % Basophils # (Manual) PT INR APTT Heparin Anti-Xa Level ABG pH POC ABG pO2 ABG pO2 57.5 L ABG HCO3 31.7 H ABG O2 Saturation 90.3 L ABG Base Excess 6.6 H POC ABG pCO2 ABG Hemoglobin 13.0 L ABG Oxyhemoglobin ABG Chloride ABG Glucose Oxyhemoglobin 87.5 L Sodium Potassium Chloride Carbon Dioxide BUN Creatinine Glucose POC Glucose 124 H 196 H Lactic Acid Calcium Phosphorus Magnesium AST ALT Lactate Dehydrogenase Total Bilirubin Direct Bilirubin CK-MB (CK-2) C-Reactive Protein NT-Pro-B Natriuret Pep Total Protein Albumin Arterial Blood Glucose Urine WBC (Auto) Urine Creatinine 01/26/20 01/26/20 01/26/20 03:20 05:46 12:46 WBC RBC Hgb 9.2 L Hct 29.4 L MCHC RDW MCV MCH Lymph % (Auto) [place] % (Auto) [place] # Eos # Lymph # (Auto) [place] # (Auto) Eos # (Auto) Seg Neutrophils % Seg Neuts % (Manual) Baso # (Auto) Lymphocytes % (Manual) Monocytes % (Manual) Eosinophils % (Manual) Basophils % (Manual) Seg Neutrophils # Seg Neutrophils # Man Lymphocytes # (Manual) Monocytes # (Manual) Eosinophils # (Manual) Nucleated RBC % Basophils # (Manual) PT INR APTT Heparin Anti-Xa Level ABG pH POC ABG pO2 ABG pO2 ABG HCO3 ABG O2 Saturation ABG Base Excess POC ABG pCO2 ABG Hemoglobin ABG Oxyhemoglobin ABG Chloride ABG Glucose Oxyhemoglobin Sodium Potassium Chloride Carbon Dioxide BUN Creatinine Glucose POC Glucose 141 H 122 H Lactic Acid Calcium Phosphorus Magnesium AST ALT Lactate Dehydrogenase Total Bilirubin Direct Bilirubin CK-MB (CK-2) C-Reactive Protein NT-Pro-B Natriuret Pep Total Protein Albumin Arterial Blood Glucose Urine WBC (Auto) Urine Creatinine 01/26/20 01/26/20 01/27/20 18:03 23:55 04:47 WBC RBC Hgb Hct MCHC RDW MCV MCH Lymph % (Auto) [place] % (Auto) [place] # Eos # Lymph # (Auto) [place] # (Auto) Eos # (Auto) Seg Neutrophils % Seg Neuts % (Manual) Baso # (Auto) Lymphocytes % (Manual) Monocytes % (Manual) Eosinophils % (Manual) Basophils % (Manual) Seg Neutrophils # Seg Neutrophils # Man Lymphocytes # (Manual) Monocytes # (Manual) Eosinophils # (Manual) Nucleated RBC % Basophils # (Manual) PT INR APTT Heparin Anti-Xa Level ABG pH POC ABG pO2 ABG pO2 ABG HCO3 ABG O2 Saturation ABG Base Excess POC ABG pCO2 ABG Hemoglobin ABG Oxyhemoglobin ABG Chloride ABG Glucose Oxyhemoglobin Sodium Potassium Chloride Carbon Dioxide BUN 30 H Creatinine 0.7 L Glucose 135 H POC Glucose 142 H 159 H Lactic Acid Calcium Phosphorus Magnesium AST ALT Lactate Dehydrogenase Total Bilirubin Direct Bilirubin CK-MB (CK-2) C-Reactive Protein NT-Pro-B Natriuret Pep Total Protein Albumin Arterial Blood Glucose Urine WBC (Auto) Urine Creatinine 01/27/20 01/27/20 01/27/20 05:43 12:06 17:16 WBC RBC Hgb Hct MCHC RDW MCV MCH Lymph % (Auto) [place] % (Auto) [place] # Eos # Lymph # (Auto) [place] # (Auto) Eos # (Auto) Seg Neutrophils % Seg Neuts % (Manual) Baso # (Auto) Lymphocytes % (Manual) Monocytes % (Manual) Eosinophils % (Manual) Basophils % (Manual) Seg Neutrophils # Seg Neutrophils # Man Lymphocytes # (Manual) Monocytes # (Manual) Eosinophils # (Manual) Nucleated RBC % Basophils # (Manual) PT INR APTT Heparin Anti-Xa Level ABG pH POC ABG pO2 ABG pO2 ABG HCO3 ABG O2 Saturation ABG Base Excess POC ABG pCO2 ABG Hemoglobin ABG Oxyhemoglobin ABG Chloride ABG Glucose Oxyhemoglobin Sodium Potassium Chloride Carbon Dioxide BUN Creatinine Glucose POC Glucose 143 H 142 H 128 H Lactic Acid Calcium Phosphorus Magnesium AST ALT Lactate Dehydrogenase Total Bilirubin Direct Bilirubin CK-MB (CK-2) C-Reactive Protein NT-Pro-B Natriuret Pep Total Protein Albumin Arterial Blood Glucose Urine WBC (Auto) Urine Creatinine 01/27/20 01/28/20 01/28/20 23:55 04:37 05:55 WBC RBC Hgb 9.4 L Hct 29.9 L MCHC RDW MCV MCH Lymph % (Auto) [place] % (Auto) [place] # Eos # Lymph # (Auto) [place] # (Auto) Eos # (Auto) Seg Neutrophils % Seg Neuts % (Manual) Baso # (Auto) Lymphocytes % (Manual) Monocytes % (Manual) Eosinophils % (Manual) Basophils % (Manual) Seg Neutrophils # Seg Neutrophils # Man Lymphocytes # (Manual) Monocytes # (Manual) Eosinophils # (Manual) Nucleated RBC % Basophils # (Manual) PT INR APTT Heparin Anti-Xa Level ABG pH POC ABG pO2 ABG pO2 ABG HCO3 ABG O2 Saturation ABG Base Excess POC ABG pCO2 ABG Hemoglobin ABG Oxyhemoglobin ABG Chloride ABG Glucose Oxyhemoglobin Sodium Potassium Chloride Carbon Dioxide BUN Creatinine Glucose POC Glucose 166 H 169 H Lactic Acid Calcium Phosphorus Magnesium AST ALT Lactate Dehydrogenase Total Bilirubin Direct Bilirubin CK-MB (CK-2) C-Reactive Protein NT-Pro-B Natriuret Pep Total Protein Albumin Arterial Blood Glucose Urine WBC (Auto) Urine Creatinine 01/28/20 01/28/20 01/28/20 11:58 17:26 23:46 WBC RBC Hgb Hct MCHC RDW MCV MCH Lymph % (Auto) [place] % (Auto) [place] # Eos # Lymph # (Auto) [place] # (Auto) Eos # (Auto) Seg Neutrophils % Seg Neuts % (Manual) Baso # (Auto) Lymphocytes % (Manual) Monocytes % (Manual) Eosinophils % (Manual) Basophils % (Manual) Seg Neutrophils # Seg Neutrophils # Man Lymphocytes # (Manual) Monocytes # (Manual) Eosinophils # (Manual) Nucleated RBC % Basophils # (Manual) PT INR APTT Heparin Anti-Xa Level ABG pH POC ABG pO2 ABG pO2 ABG HCO3 ABG O2 Saturation ABG Base Excess POC ABG pCO2 ABG Hemoglobin ABG Oxyhemoglobin ABG Chloride ABG Glucose Oxyhemoglobin Sodium Potassium Chloride Carbon Dioxide BUN Creatinine Glucose POC Glucose 130 H 126 H 150 H Lactic Acid Calcium Phosphorus Magnesium AST ALT Lactate Dehydrogenase Total Bilirubin Direct Bilirubin CK-MB (CK-2) C-Reactive Protein NT-Pro-B Natriuret Pep Total Protein Albumin Arterial Blood Glucose Urine WBC (Auto) Urine Creatinine 01/29/20 01/29/20 01/29/20 04:55 06:00 12:28 WBC RBC Hgb Hct MCHC RDW MCV MCH Lymph % (Auto) [place] % (Auto) [place] # Eos # Lymph # (Auto) [place] # (Auto) Eos # (Auto) Seg Neutrophils % Seg Neuts % (Manual) Baso # (Auto) Lymphocytes % (Manual) Monocytes % (Manual) Eosinophils % (Manual) Basophils % (Manual) Seg Neutrophils # Seg Neutrophils # Man Lymphocytes # (Manual) Monocytes # (Manual) Eosinophils # (Manual) Nucleated RBC % Basophils # (Manual) PT INR APTT Heparin Anti-Xa Level ABG pH POC ABG pO2 ABG pO2 ABG HCO3 ABG O2 Saturation ABG Base Excess POC ABG pCO2 ABG Hemoglobin ABG Oxyhemoglobin ABG Chloride ABG Glucose Oxyhemoglobin Sodium Potassium Chloride Carbon Dioxide 34 H BUN Creatinine 0.6 L Glucose 152 H POC Glucose 157 H 156 H Lactic Acid Calcium Phosphorus Magnesium AST ALT Lactate Dehydrogenase Total Bilirubin Direct Bilirubin CK-MB (CK-2) C-Reactive Protein NT-Pro-B Natriuret Pep Total Protein Albumin Arterial Blood Glucose Urine WBC (Auto) Urine Creatinine 01/29/20 01/30/20 01/30/20 19:06 00:29 05:39 WBC RBC Hgb Hct MCHC RDW MCV MCH Lymph % (Auto) [place] % (Auto) [place] # Eos # Lymph # (Auto) [place] # (Auto) Eos # (Auto) Seg Neutrophils % Seg Neuts % (Manual) Baso # (Auto) Lymphocytes % (Manual) Monocytes % (Manual) Eosinophils % (Manual) Basophils % (Manual) Seg Neutrophils # Seg Neutrophils # Man Lymphocytes # (Manual) Monocytes # (Manual) Eosinophils # (Manual) Nucleated RBC % Basophils # (Manual) PT INR APTT Heparin Anti-Xa Level ABG pH POC ABG pO2 ABG pO2 ABG HCO3 ABG O2 Saturation ABG Base Excess POC ABG pCO2 ABG Hemoglobin ABG Oxyhemoglobin ABG Chloride ABG Glucose Oxyhemoglobin Sodium Potassium Chloride Carbon Dioxide BUN Creatinine Glucose POC Glucose 152 H 132 H 159 H Lactic Acid Calcium Phosphorus Magnesium AST ALT Lactate Dehydrogenase Total Bilirubin Direct Bilirubin CK-MB (CK-2) C-Reactive Protein NT-Pro-B Natriuret Pep Total Protein Albumin Arterial Blood Glucose Urine WBC (Auto) Urine Creatinine 01/30/20 01/30/20 01/30/20 12:27 17:42 23:28 WBC RBC Hgb Hct MCHC RDW MCV MCH Lymph % (Auto) [place] % (Auto) [place] # Eos # Lymph # (Auto) [place] # (Auto) Eos # (Auto) Seg Neutrophils % Seg Neuts % (Manual) Baso # (Auto) Lymphocytes % (Manual) Monocytes % (Manual) Eosinophils % (Manual) Basophils % (Manual) Seg Neutrophils # Seg Neutrophils # Man Lymphocytes # (Manual) Monocytes # (Manual) Eosinophils # (Manual) Nucleated RBC % Basophils # (Manual) PT INR APTT Heparin Anti-Xa Level ABG pH POC ABG pO2 ABG pO2 ABG HCO3 ABG O2 Saturation ABG Base Excess POC ABG pCO2 ABG Hemoglobin ABG Oxyhemoglobin ABG Chloride ABG Glucose Oxyhemoglobin Sodium Potassium Chloride Carbon Dioxide BUN Creatinine Glucose POC Glucose 151 H 144 H 164 H Lactic Acid Calcium Phosphorus Magnesium AST ALT Lactate Dehydrogenase Total Bilirubin Direct Bilirubin CK-MB (CK-2) C-Reactive Protein NT-Pro-B Natriuret Pep Total Protein Albumin Arterial Blood Glucose Urine WBC (Auto) Urine Creatinine 01/31/20 01/31/20 01/31/20 05:51 11:51 18:06 WBC RBC Hgb Hct MCHC RDW MCV MCH Lymph % (Auto) [place] % (Auto) [place] # Eos # Lymph # (Auto) [place] # (Auto) Eos # (Auto) Seg Neutrophils % Seg Neuts % (Manual) Baso # (Auto) Lymphocytes % (Manual) Monocytes % (Manual) Eosinophils % (Manual) Basophils % (Manual) Seg Neutrophils # Seg Neutrophils # Man Lymphocytes # (Manual) Monocytes # (Manual) Eosinophils # (Manual) Nucleated RBC % Basophils # (Manual) PT INR APTT Heparin Anti-Xa Level ABG pH POC ABG pO2 ABG pO2 ABG HCO3 ABG O2 Saturation ABG Base Excess POC ABG pCO2 ABG Hemoglobin ABG Oxyhemoglobin ABG Chloride ABG Glucose Oxyhemoglobin Sodium Potassium Chloride Carbon Dioxide BUN Creatinine Glucose POC Glucose 131 H 167 H 210 H Lactic Acid Calcium Phosphorus Magnesium AST ALT Lactate Dehydrogenase Total Bilirubin Direct Bilirubin CK-MB (CK-2) C-Reactive Protein NT-Pro-B Natriuret Pep Total Protein Albumin Arterial Blood Glucose Urine WBC (Auto) Urine Creatinine 01/31/20 01/31/20 02/01/20 19:24 Unknown 00:34 WBC RBC Hgb Hct MCHC RDW MCV MCH Lymph % (Auto) [place] % (Auto) [place] # Eos # Lymph # (Auto) [place] # (Auto) Eos # (Auto) Seg Neutrophils % Seg Neuts % (Manual) Baso # (Auto) Lymphocytes % (Manual) Monocytes % (Manual) Eosinophils % (Manual) Basophils % (Manual) Seg Neutrophils # Seg Neutrophils # Man Lymphocytes # (Manual) Monocytes # (Manual) Eosinophils # (Manual) Nucleated RBC % Basophils # (Manual) PT INR APTT Heparin Anti-Xa Level ABG pH POC ABG pO2 ABG pO2 ABG HCO3 ABG O2 Saturation ABG Base Excess POC ABG pCO2 ABG Hemoglobin ABG Oxyhemoglobin ABG Chloride ABG Glucose Oxyhemoglobin Sodium Potassium Chloride 95.3 L Carbon Dioxide 33 H BUN 36 H Creatinine Glucose 187 H POC Glucose 116 H Lactic Acid Calcium Phosphorus Magnesium AST ALT Lactate Dehydrogenase Total Bilirubin Direct Bilirubin CK-MB (CK-2) C-Reactive Protein NT-Pro-B Natriuret Pep Total Protein Albumin Arterial Blood Glucose Urine WBC (Auto) Urine Creatinine 57.4 H 02/01/20 02/01/20 02/01/20 05:24 10:40 12:29 WBC RBC Hgb Hct MCHC RDW MCV MCH Lymph % (Auto) [place] % (Auto) [place] # Eos # Lymph # (Auto) [place] # (Auto) Eos # (Auto) Seg Neutrophils % Seg Neuts % (Manual) Baso # (Auto) Lymphocytes % (Manual) Monocytes % (Manual) Eosinophils % (Manual) Basophils % (Manual) Seg Neutrophils # Seg Neutrophils # Man Lymphocytes # (Manual) Monocytes # (Manual) Eosinophils # (Manual) Nucleated RBC % Basophils # (Manual) PT INR APTT Heparin Anti-Xa Level ABG pH POC ABG pO2 ABG pO2 ABG HCO3 ABG O2 Saturation ABG Base Excess POC ABG pCO2 ABG Hemoglobin ABG Oxyhemoglobin ABG Chloride ABG Glucose Oxyhemoglobin Sodium Potassium Chloride Carbon Dioxide BUN Creatinine Glucose POC Glucose 142 H 165 H 151 H Lactic Acid Calcium Phosphorus Magnesium AST ALT Lactate Dehydrogenase Total Bilirubin Direct Bilirubin CK-MB (CK-2) C-Reactive Protein NT-Pro-B Natriuret Pep Total Protein Albumin Arterial Blood Glucose Urine WBC (Auto) Urine Creatinine 11/12/1202/01/20 02/02/20 17:16 23:23 06:36 WBC RBC Hgb Hct MCHC RDW MCV MCH Lymph % (Auto) [place] % (Auto) [place] # Eos # Lymph # (Auto) [place] # (Auto) Eos # (Auto) Seg Neutrophils % Seg Neuts % (Manual) Baso # (Auto) Lymphocytes % (Manual) Monocytes % (Manual) Eosinophils % (Manual) Basophils % (Manual) Seg Neutrophils # Seg Neutrophils # Man Lymphocytes # (Manual) Monocytes # (Manual) Eosinophils # (Manual) Nucleated RBC % Basophils # (Manual) PT INR APTT Heparin Anti-Xa Level ABG pH POC ABG pO2 ABG pO2 ABG HCO3 ABG O2 Saturation ABG Base Excess POC ABG pCO2 ABG Hemoglobin ABG Oxyhemoglobin ABG Chloride ABG Glucose Oxyhemoglobin Sodium Potassium Chloride Carbon Dioxide BUN Creatinine Glucose POC Glucose 137 H 145 H 181 H Lactic Acid Calcium Phosphorus Magnesium AST ALT Lactate Dehydrogenase Total Bilirubin Direct Bilirubin CK-MB (CK-2) C-Reactive Protein NT-Pro-B Natriuret Pep Total Protein Albumin Arterial Blood Glucose Urine WBC (Auto) Urine Creatinine 02/02/20 02/02/20 02/02/20 10:01 12:05 17:54 WBC RBC Hgb Hct MCHC RDW MCV MCH Lymph % (Auto) [place] % (Auto) [place] # Eos # Lymph # (Auto) [place] # (Auto) Eos # (Auto) Seg Neutrophils % Seg Neuts % (Manual) Baso # (Auto) Lymphocytes % (Manual) Monocytes % (Manual) Eosinophils % (Manual) Basophils % (Manual) Seg Neutrophils # Seg Neutrophils # Man Lymphocytes # (Manual) Monocytes # (Manual) Eosinophils # (Manual) Nucleated RBC % Basophils # (Manual) PT INR APTT Heparin Anti-Xa Level ABG pH POC ABG pO2 ABG pO2 ABG HCO3 ABG O2 Saturation ABG Base Excess POC ABG pCO2 ABG Hemoglobin ABG Oxyhemoglobin ABG Chloride ABG Glucose Oxyhemoglobin Sodium Potassium Chloride 95.3 L Carbon Dioxide BUN 44 H Creatinine Glucose 234 H POC Glucose 184 H 127 H Lactic Acid Calcium Phosphorus Magnesium AST 363 H ALT 457 H Lactate Dehydrogenase Total Bilirubin Direct Bilirubin CK-MB (CK-2) C-Reactive Protein NT-Pro-B Natriuret Pep Total Protein Albumin 3.0 L Arterial Blood Glucose Urine WBC (Auto) Urine Creatinine 02/02/20 02/03/20 02/03/20 23:47 05:32 07:04 WBC 13.0 H RBC Hgb 9.5 L Hct 30.8 L MCHC 31 L RDW 19.6 H MCV 81 L MCH 25 L Lymph % (Auto) [place] % (Auto) 9.4 H [place] # Eos # Lymph # (Auto) [place] # (Auto) 1.2 H Eos # (Auto) Seg Neutrophils % 72.3 H Seg Neuts % (Manual) Baso # (Auto) Lymphocytes % (Manual) Monocytes % (Manual) Eosinophils % (Manual) Basophils % (Manual) Seg Neutrophils # 9.4 H Seg Neutrophils # Man Lymphocytes # (Manual) Monocytes # (Manual) Eosinophils # (Manual) Nucleated RBC % Basophils # (Manual) PT INR APTT Heparin Anti-Xa Level ABG pH POC ABG pO2 ABG pO2 ABG HCO3 ABG O2 Saturation ABG Base Excess POC ABG pCO2 ABG Hemoglobin ABG Oxyhemoglobin ABG Chloride ABG Glucose Oxyhemoglobin Sodium Potassium Chloride Carbon Dioxide BUN Creatinine Glucose POC Glucose 124 H 129 H Lactic Acid Calcium Phosphorus Magnesium AST ALT Lactate Dehydrogenase Total Bilirubin Direct Bilirubin CK-MB (CK-2) C-Reactive Protein NT-Pro-B Natriuret Pep Total Protein Albumin Arterial Blood Glucose Urine WBC (Auto) Urine Creatinine 02/03/20 02/03/20 02/03/20 07:04 11:32 12:49 WBC RBC Hgb Hct MCHC RDW MCV MCH Lymph % (Auto) [place] % (Auto) [place] # Eos # Lymph # (Auto) [place] # (Auto) Eos # (Auto) Seg Neutrophils % Seg Neuts % (Manual) Baso # (Auto) Lymphocytes % (Manual) Monocytes % (Manual) Eosinophils % (Manual) Basophils % (Manual) Seg Neutrophils # Seg Neutrophils # Man Lymphocytes # (Manual) Monocytes # (Manual) Eosinophils # (Manual) Nucleated RBC % Basophils # (Manual) PT INR APTT Heparin Anti-Xa Level ABG pH POC ABG pO2 ABG pO2 ABG HCO3 ABG O2 Saturation ABG Base Excess POC ABG pCO2 ABG Hemoglobin ABG Oxyhemoglobin ABG Chloride ABG Glucose Oxyhemoglobin Sodium Potassium Chloride 97.9 L Carbon Dioxide 33 H BUN 39 H Creatinine Glucose 119 H POC Glucose 138 H Lactic Acid Calcium Phosphorus Magnesium 2.60 H AST ALT Lactate Dehydrogenase Total Bilirubin Direct Bilirubin CK-MB (CK-2) C-Reactive Protein NT-Pro-B Natriuret Pep Total Protein Albumin Arterial Blood Glucose Urine WBC (Auto) Urine Creatinine 02/03/20 02/04/20 02/04/20 18:28 16:24 16:24 WBC RBC 3.38 L Hgb 8.6 L Hct 26.9 L MCHC RDW 19.5 H MCV 80 L MCH 26 L Lymph % (Auto) [place] % (Auto) [place] # Eos # Lymph # (Auto) [place] # (Auto) Eos # (Auto) Seg Neutrophils % Seg Neuts % (Manual) Baso # (Auto) Lymphocytes % (Manual) Monocytes % (Manual) Eosinophils % (Manual) Basophils % (Manual) Seg Neutrophils # Seg Neutrophils # Man Lymphocytes # (Manual) Monocytes # (Manual) Eosinophils # (Manual) Nucleated RBC % Basophils # (Manual) PT INR APTT Heparin Anti-Xa Level ABG pH POC ABG pO2 ABG pO2 ABG HCO3 ABG O2 Saturation ABG Base Excess POC ABG pCO2 ABG Hemoglobin ABG Oxyhemoglobin ABG Chloride ABG Glucose Oxyhemoglobin Sodium Potassium 3.4 L Chloride Carbon Dioxide 31 H BUN 37 H Creatinine Glucose 70 L POC Glucose 118 H Lactic Acid Calcium Phosphorus Magnesium AST 169 H ALT 394 H Lactate Dehydrogenase Total Bilirubin 1.50 H Direct Bilirubin CK-MB (CK-2) C-Reactive Protein NT-Pro-B Natriuret Pep Total Protein Albumin 2.9 L Arterial Blood Glucose Urine WBC (Auto) Urine Creatinine 02/05/20 02/05/20 02/05/20 00:41 06:37 17:14 WBC RBC Hgb Hct MCHC RDW MCV MCH Lymph % (Auto) [place] % (Auto) [place] # Eos # Lymph # (Auto) [place] # (Auto) Eos # (Auto) Seg Neutrophils % Seg Neuts % (Manual) Baso # (Auto) Lymphocytes % (Manual) Monocytes % (Manual) Eosinophils % (Manual) Basophils % (Manual) Seg Neutrophils # Seg Neutrophils # Man Lymphocytes # (Manual) Monocytes # (Manual) Eosinophils # (Manual) Nucleated RBC % Basophils # (Manual) PT INR APTT Heparin Anti-Xa Level ABG pH POC ABG pO2 ABG pO2 ABG HCO3 ABG O2 Saturation ABG Base Excess POC ABG pCO2 ABG Hemoglobin ABG Oxyhemoglobin ABG Chloride ABG Glucose Oxyhemoglobin Sodium Potassium 3.1 L Chloride Carbon Dioxide 35 H BUN 32 H Creatinine 0.7 L Glucose POC Glucose 69 L 127 H Lactic Acid Calcium Phosphorus Magnesium AST 134 H ALT 352 H Lactate Dehydrogenase Total Bilirubin 1.60 H Direct Bilirubin CK-MB (CK-2) C-Reactive Protein NT-Pro-B Natriuret Pep Total Protein Albumin 2.9 L Arterial Blood Glucose Urine WBC (Auto) Urine Creatinine 02/05/20 02/06/20 02/06/20 23:43 05:32 08:01 WBC RBC Hgb Hct MCHC RDW MCV MCH Lymph % (Auto) [place] % (Auto) [place] # Eos # Lymph # (Auto) [place] # (Auto) Eos # (Auto) Seg Neutrophils % Seg Neuts % (Manual) Baso # (Auto) Lymphocytes % (Manual) Monocytes % (Manual) Eosinophils % (Manual) Basophils % (Manual) Seg Neutrophils # Seg Neutrophils # Man Lymphocytes # (Manual) Monocytes # (Manual) Eosinophils # (Manual) Nucleated RBC % Basophils # (Manual) PT INR APTT Heparin Anti-Xa Level ABG pH POC ABG pO2 ABG pO2 ABG HCO3 ABG O2 Saturation ABG Base Excess POC ABG pCO2 ABG Hemoglobin ABG Oxyhemoglobin ABG Chloride ABG Glucose Oxyhemoglobin Sodium Potassium Chloride Carbon Dioxide BUN 40 H Creatinine Glucose 132 H POC Glucose 129 H 131 H Lactic Acid Calcium Phosphorus Magnesium AST ALT Lactate Dehydrogenase Total Bilirubin Direct Bilirubin CK-MB (CK-2) C-Reactive Protein NT-Pro-B Natriuret Pep Total Protein Albumin Arterial Blood Glucose Urine WBC (Auto) Urine Creatinine 02/06/20 02/06/20 02/06/20 11:51 16:28 17:32 WBC RBC Hgb Hct MCHC RDW MCV MCH Lymph % (Auto) [place] % (Auto) [place] # Eos # Lymph # (Auto) [place] # (Auto) Eos # (Auto) Seg Neutrophils % Seg Neuts % (Manual) Baso # (Auto) Lymphocytes % (Manual) Monocytes % (Manual) Eosinophils % (Manual) Basophils % (Manual) Seg Neutrophils # Seg Neutrophils # Man Lymphocytes # (Manual) Monocytes # (Manual) Eosinophils # (Manual) Nucleated RBC % Basophils # (Manual) PT INR APTT Heparin Anti-Xa Level ABG pH POC ABG pO2 ABG pO2 ABG HCO3 ABG O2 Saturation ABG Base Excess POC ABG pCO2 ABG Hemoglobin ABG Oxyhemoglobin ABG Chloride ABG Glucose Oxyhemoglobin Sodium Potassium Chloride Carbon Dioxide BUN Creatinine Glucose POC Glucose 167 H 129 H Lactic Acid Calcium Phosphorus Magnesium AST 824 H ALT 948 H Lactate Dehydrogenase Total Bilirubin 1.70 H Direct Bilirubin 1.2 H CK-MB (CK-2) C-Reactive Protein NT-Pro-B Natriuret Pep Total Protein Albumin 2.9 L Arterial Blood Glucose Urine WBC (Auto) Urine Creatinine 02/07/20 02/07/20 02/07/20 00:11 04:57 04:57 WBC RBC Hgb 9.2 L Hct 29.7 L MCHC 31 L RDW 20.2 H MCV 80 L MCH 25 L Lymph % (Auto) [place] % (Auto) [place] # Eos # Lymph # (Auto) [place] # (Auto) Eos # (Auto) Seg Neutrophils % Seg Neuts % (Manual) Baso # (Auto) Lymphocytes % (Manual) Monocytes % (Manual) Eosinophils % (Manual) Basophils % (Manual) Seg Neutrophils # Seg Neutrophils # Man Lymphocytes # (Manual) Monocytes # (Manual) Eosinophils # (Manual) Nucleated RBC % Basophils # (Manual) PT INR APTT Heparin Anti-Xa Level ABG pH POC ABG pO2 ABG pO2 ABG HCO3 ABG O2 Saturation ABG Base Excess POC ABG pCO2 ABG Hemoglobin ABG Oxyhemoglobin ABG Chloride ABG Glucose Oxyhemoglobin Sodium Potassium 3.4 L D Chloride Carbon Dioxide 32 H BUN 39 H Creatinine Glucose 106 H POC Glucose 121 H Lactic Acid Calcium Phosphorus Magnesium AST ALT Lactate Dehydrogenase Total Bilirubin Direct Bilirubin CK-MB (CK-2) C-Reactive Protein NT-Pro-B Natriuret Pep Total Protein Albumin Arterial Blood Glucose Urine WBC (Auto) Urine Creatinine 02/07/20 02/07/20 02/07/20 15:03 15:03 17:11 WBC RBC Hgb Hct MCHC RDW MCV MCH Lymph % (Auto) [place] % (Auto) [place] # Eos # Lymph # (Auto) [place] # (Auto) Eos # (Auto) Seg Neutrophils % Seg Neuts % (Manual) Baso # (Auto) Lymphocytes % (Manual) Monocytes % (Manual) Eosinophils % (Manual) Basophils % (Manual) Seg Neutrophils # Seg Neutrophils # Man Lymphocytes # (Manual) Monocytes # (Manual) Eosinophils # (Manual) Nucleated RBC % Basophils # (Manual) PT 27.0 H INR 2.46 H APTT Heparin Anti-Xa Level ABG pH POC ABG pO2 ABG pO2 ABG HCO3 ABG O2 Saturation ABG Base Excess POC ABG pCO2 ABG Hemoglobin ABG Oxyhemoglobin ABG Chloride ABG Glucose Oxyhemoglobin Sodium Potassium Chloride Carbon Dioxide BUN Creatinine Glucose POC Glucose 109 H Lactic Acid Calcium Phosphorus Magnesium AST 424 H ALT 796 H Lactate Dehydrogenase Total Bilirubin 1.60 H Direct Bilirubin 1.2 H CK-MB (CK-2) C-Reactive Protein NT-Pro-B Natriuret Pep Total Protein Albumin 2.9 L Arterial Blood Glucose Urine WBC (Auto) Urine Creatinine 02/08/20 02/08/20 02/08/20 12:14 17:44 19:00 WBC RBC Hgb Hct MCHC RDW MCV MCH Lymph % (Auto) [place] % (Auto) [place] # Eos # Lymph # (Auto) [place] # (Auto) Eos # (Auto) Seg Neutrophils % Seg Neuts % (Manual) Baso # (Auto) Lymphocytes % (Manual) Monocytes % (Manual) Eosinophils % (Manual) Basophils % (Manual) Seg Neutrophils # Seg Neutrophils # Man Lymphocytes # (Manual) Monocytes # (Manual) Eosinophils # (Manual) Nucleated RBC % Basophils # (Manual) PT INR APTT Heparin Anti-Xa Level ABG pH POC ABG pO2 ABG pO2 ABG HCO3 ABG O2 Saturation ABG Base Excess POC ABG pCO2 ABG Hemoglobin ABG Oxyhemoglobin ABG Chloride ABG Glucose Oxyhemoglobin Sodium Potassium Chloride Carbon Dioxide BUN Creatinine Glucose POC Glucose 111 H 107 H Lactic Acid Calcium Phosphorus Magnesium AST 309 H ALT 650 H Lactate Dehydrogenase Total Bilirubin 1.30 H Direct Bilirubin 0.9 H CK-MB (CK-2) C-Reactive Protein NT-Pro-B Natriuret Pep Total Protein 6.2 L Albumin 2.7 L Arterial Blood Glucose Urine WBC (Auto) Urine Creatinine 02/09/20 02/09/20 02/09/20 05:41 12:28 18:07 WBC RBC Hgb Hct MCHC RDW MCV MCH Lymph % (Auto) [place] % (Auto) [place] # Eos # Lymph # (Auto) [place] # (Auto) Eos # (Auto) Seg Neutrophils % Seg Neuts % (Manual) Baso # (Auto) Lymphocytes % (Manual) Monocytes % (Manual) Eosinophils % (Manual) Basophils % (Manual) Seg Neutrophils # Seg Neutrophils # Man Lymphocytes # (Manual) Monocytes # (Manual) Eosinophils # (Manual) Nucleated RBC % Basophils # (Manual) PT INR APTT Heparin Anti-Xa Level ABG pH POC ABG pO2 ABG pO2 ABG HCO3 ABG O2 Saturation ABG Base Excess POC ABG pCO2 ABG Hemoglobin ABG Oxyhemoglobin ABG Chloride ABG Glucose Oxyhemoglobin Sodium Potassium Chloride Carbon Dioxide BUN Creatinine Glucose POC Glucose 113 H 140 H 143 H Lactic Acid Calcium Phosphorus Magnesium AST ALT Lactate Dehydrogenase Total Bilirubin Direct Bilirubin CK-MB (CK-2) C-Reactive Protein NT-Pro-B Natriuret Pep Total Protein Albumin Arterial Blood Glucose Urine WBC (Auto) Urine Creatinine 02/09/20 02/09/20 02/10/20 21:40 23:45 06:00 WBC RBC Hgb Hct MCHC RDW MCV MCH Lymph % (Auto) [place] % (Auto) [place] # Eos # Lymph # (Auto) [place] # (Auto) Eos # (Auto) Seg Neutrophils % Seg Neuts % (Manual) Baso # (Auto) Lymphocytes % (Manual) Monocytes % (Manual) Eosinophils % (Manual) Basophils % (Manual) Seg Neutrophils # Seg Neutrophils # Man Lymphocytes # (Manual) Monocytes # (Manual) Eosinophils # (Manual) Nucleated RBC % Basophils # (Manual) PT INR APTT Heparin Anti-Xa Level ABG pH POC ABG pO2 ABG pO2 59.8 L ABG HCO3 33.3 H ABG O2 Saturation 88.9 L ABG Base Excess 7.4 H POC ABG pCO2 ABG Hemoglobin 10.4 L ABG Oxyhemoglobin ABG Chloride ABG Glucose Oxyhemoglobin 86.3 L Sodium Potassium Chloride Carbon Dioxide BUN Creatinine Glucose POC Glucose 127 H 114 H Lactic Acid Calcium Phosphorus Magnesium AST ALT Lactate Dehydrogenase Total Bilirubin Direct Bilirubin CK-MB (CK-2) C-Reactive Protein NT-Pro-B Natriuret Pep Total Protein Albumin Arterial Blood Glucose Urine WBC (Auto) Urine Creatinine 02/10/20 02/10/20 02/10/20 07:40 07:40 13:38 WBC 11.5 H RBC Hgb 10.6 L Hct 34.7 L MCHC 31 L RDW 19.8 H MCV 79 L MCH 24 L Lymph % (Auto) [place] % (Auto) 9.2 H [place] # Eos # Lymph # (Auto) [place] # (Auto) 1.1 H Eos # (Auto) Seg Neutrophils % Seg Neuts % (Manual) Baso # (Auto) Lymphocytes % (Manual) Monocytes % (Manual) Eosinophils % (Manual) Basophils % (Manual) Seg Neutrophils # Seg Neutrophils # Man Lymphocytes # (Manual) Monocytes # (Manual) Eosinophils # (Manual) Nucleated RBC % Basophils # (Manual) PT INR APTT Heparin Anti-Xa Level ABG pH POC ABG pO2 ABG pO2 ABG HCO3 ABG O2 Saturation ABG Base Excess POC ABG pCO2 ABG Hemoglobin ABG Oxyhemoglobin ABG Chloride ABG Glucose Oxyhemoglobin Sodium 151 H Potassium Chloride 107.2 H Carbon Dioxide 36 H BUN 25 H Creatinine 0.7 L Glucose 114 H POC Glucose 116 H Lactic Acid Calcium Phosphorus Magnesium 2.40 H AST ALT Lactate Dehydrogenase Total Bilirubin Direct Bilirubin CK-MB (CK-2) C-Reactive Protein NT-Pro-B Natriuret Pep Total Protein Albumin Arterial Blood Glucose Urine WBC (Auto) Urine Creatinine 02/10/20 02/11/20 02/11/20 17:44 05:47 12:21 WBC RBC Hgb Hct MCHC RDW MCV MCH Lymph % (Auto) [place] % (Auto) [place] # Eos # Lymph # (Auto) [place] # (Auto) Eos # (Auto) Seg Neutrophils % Seg Neuts % (Manual) Baso # (Auto) Lymphocytes % (Manual) Monocytes % (Manual) Eosinophils % (Manual) Basophils % (Manual) Seg Neutrophils # Seg Neutrophils # Man Lymphocytes # (Manual) Monocytes # (Manual) Eosinophils # (Manual) Nucleated RBC % Basophils # (Manual) PT INR APTT Heparin Anti-Xa Level ABG pH POC ABG pO2 ABG pO2 ABG HCO3 ABG O2 Saturation ABG Base Excess POC ABG pCO2 ABG Hemoglobin ABG Oxyhemoglobin ABG Chloride ABG Glucose Oxyhemoglobin Sodium Potassium Chloride Carbon Dioxide BUN Creatinine Glucose POC Glucose 139 H 173 H 143 H Lactic Acid Calcium Phosphorus Magnesium AST ALT Lactate Dehydrogenase Total Bilirubin Direct Bilirubin CK-MB (CK-2) C-Reactive Protein NT-Pro-B Natriuret Pep Total Protein Albumin Arterial Blood Glucose Urine WBC (Auto) Urine Creatinine 02/11/20 02/11/20 02/12/20 13:43 14:11 00:15 WBC RBC Hgb Hct MCHC RDW MCV MCH Lymph % (Auto) [place] % (Auto) [place] # Eos # Lymph # (Auto) [place] # (Auto) Eos # (Auto) Seg Neutrophils % Seg Neuts % (Manual) Baso # (Auto) Lymphocytes % (Manual) Monocytes % (Manual) Eosinophils % (Manual) Basophils % (Manual) Seg Neutrophils # Seg Neutrophils # Man Lymphocytes # (Manual) Monocytes # (Manual) Eosinophils # (Manual) Nucleated RBC % Basophils # (Manual) PT INR APTT Heparin Anti-Xa Level ABG pH 7.502 H POC ABG pO2 77.7 L ABG pO2 ABG HCO3 ABG O2 Saturation ABG Base Excess POC ABG pCO2 ABG Hemoglobin 11.1 L ABG Oxyhemoglobin ABG Chloride 108.0 H ABG Glucose 151 H Oxyhemoglobin Sodium Potassium Chloride Carbon Dioxide BUN Creatinine Glucose POC Glucose 130 H 125 H Lactic Acid Calcium Phosphorus Magnesium AST ALT Lactate Dehydrogenase Total Bilirubin Direct Bilirubin CK-MB (CK-2) C-Reactive Protein NT-Pro-B Natriuret Pep Total Protein Albumin Arterial Blood Glucose 151 H Urine WBC (Auto) Urine Creatinine 02/12/20 02/12/20 02/12/20 04:56 04:56 17:42 WBC RBC Hgb 9.9 L Hct 31.8 L MCHC 31 L RDW 19.4 H MCV 79 L MCH 25 L Lymph % (Auto) [place] % (Auto) 10.3 H [place] # Eos # Lymph # (Auto) [place] # (Auto) 1.0 H Eos # (Auto) Seg Neutrophils % Seg Neuts % (Manual) Baso # (Auto) Lymphocytes % (Manual) Monocytes % (Manual) Eosinophils % (Manual) Basophils % (Manual) Seg Neutrophils # Seg Neutrophils # Man Lymphocytes # (Manual) Monocytes # (Manual) Eosinophils # (Manual) Nucleated RBC % Basophils # (Manual) PT INR APTT Heparin Anti-Xa Level ABG pH POC ABG pO2 ABG pO2 ABG HCO3 ABG O2 Saturation ABG Base Excess POC ABG pCO2 ABG Hemoglobin ABG Oxyhemoglobin ABG Chloride ABG Glucose Oxyhemoglobin Sodium 149 H Potassium Chloride 108.6 H Carbon Dioxide BUN 28 H Creatinine 0.7 L Glucose 108 H POC Glucose 113 H Lactic Acid Calcium Phosphorus Magnesium AST ALT Lactate Dehydrogenase Total Bilirubin Direct Bilirubin CK-MB (CK-2) C-Reactive Protein NT-Pro-B Natriuret Pep Total Protein Albumin Arterial Blood Glucose Urine WBC (Auto) Urine Creatinine 02/13/20 02/13/20 02/13/20 00:39 05:36 12:25 WBC RBC Hgb Hct MCHC RDW MCV MCH Lymph % (Auto) [place] % (Auto) [place] # Eos # Lymph # (Auto) [place] # (Auto) Eos # (Auto) Seg Neutrophils % Seg Neuts % (Manual) Baso # (Auto) Lymphocytes % (Manual) Monocytes % (Manual) Eosinophils % (Manual) Basophils % (Manual) Seg Neutrophils # Seg Neutrophils # Man Lymphocytes # (Manual) Monocytes # (Manual) Eosinophils # (Manual) Nucleated RBC % Basophils # (Manual) PT INR APTT Heparin Anti-Xa Level ABG pH POC ABG pO2 ABG pO2 ABG HCO3 ABG O2 Saturation ABG Base Excess POC ABG pCO2 ABG Hemoglobin ABG Oxyhemoglobin ABG Chloride ABG Glucose Oxyhemoglobin Sodium Potassium Chloride Carbon Dioxide BUN Creatinine Glucose POC Glucose 129 H 126 H 129 H Lactic Acid Calcium Phosphorus Magnesium AST ALT Lactate Dehydrogenase Total Bilirubin Direct Bilirubin CK-MB (CK-2) C-Reactive Protein NT-Pro-B Natriuret Pep Total Protein Albumin Arterial Blood Glucose Urine WBC (Auto) Urine Creatinine 02/13/20 02/14/20 02/14/20 17:59 00:15 05:41 WBC RBC Hgb Hct MCHC RDW MCV MCH Lymph % (Auto) [place] % (Auto) [place] # Eos # Lymph # (Auto) [place] # (Auto) Eos # (Auto) Seg Neutrophils % Seg Neuts % (Manual) Baso # (Auto) Lymphocytes % (Manual) Monocytes % (Manual) Eosinophils % (Manual) Basophils % (Manual) Seg Neutrophils # Seg Neutrophils # Man Lymphocytes # (Manual) Monocytes # (Manual) Eosinophils # (Manual) Nucleated RBC % Basophils # (Manual) PT INR APTT Heparin Anti-Xa Level ABG pH POC ABG pO2 ABG pO2 ABG HCO3 ABG O2 Saturation ABG Base Excess POC ABG pCO2 ABG Hemoglobin ABG Oxyhemoglobin ABG Chloride ABG Glucose Oxyhemoglobin Sodium Potassium Chloride Carbon Dioxide BUN Creatinine Glucose POC Glucose 153 H 130 H 130 H Lactic Acid Calcium Phosphorus Magnesium AST ALT Lactate Dehydrogenase Total Bilirubin Direct Bilirubin CK-MB (CK-2) C-Reactive Protein NT-Pro-B Natriuret Pep Total Protein Albumin Arterial Blood Glucose Urine WBC (Auto) Urine Creatinine 02/14/20 02/15/20 02/15/20 11:32 00:12 05:27 WBC RBC Hgb Hct MCHC RDW MCV MCH Lymph % (Auto) [place] % (Auto) [place] # Eos # Lymph # (Auto) [place] # (Auto) Eos # (Auto) Seg Neutrophils % Seg Neuts % (Manual) Baso # (Auto) Lymphocytes % (Manual) Monocytes % (Manual) Eosinophils % (Manual) Basophils % (Manual) Seg Neutrophils # Seg Neutrophils # Man Lymphocytes # (Manual) Monocytes # (Manual) Eosinophils # (Manual) Nucleated RBC % Basophils # (Manual) PT INR APTT Heparin Anti-Xa Level ABG pH POC ABG pO2 ABG pO2 ABG HCO3 ABG O2 Saturation ABG Base Excess POC ABG pCO2 ABG Hemoglobin ABG Oxyhemoglobin ABG Chloride ABG Glucose Oxyhemoglobin Sodium Potassium Chloride Carbon Dioxide BUN Creatinine Glucose POC Glucose 157 H 124 H 111 H Lactic Acid Calcium Phosphorus Magnesium AST ALT Lactate Dehydrogenase Total Bilirubin Direct Bilirubin CK-MB (CK-2) C-Reactive Protein NT-Pro-B Natriuret Pep Total Protein Albumin Arterial Blood Glucose Urine WBC (Auto) Urine Creatinine 02/15/20 02/15/20 02/15/20 06:59 06:59 11:14 WBC RBC Hgb 10.4 L Hct 33.7 L MCHC 31 L RDW 19.4 H MCV 80 L MCH 24 L Lymph % (Auto) [place] % (Auto) [place] # Eos # Lymph # (Auto) [place] # (Auto) Eos # (Auto) Seg Neutrophils % Seg Neuts % (Manual) Baso # (Auto) Lymphocytes % (Manual) Monocytes % (Manual) Eosinophils % (Manual) Basophils % (Manual) 2.0 H Seg Neutrophils # Seg Neutrophils # Man Lymphocytes # (Manual) Monocytes # (Manual) Eosinophils # (Manual) Nucleated RBC % 1.0 H Basophils # (Manual) 0.2 H PT INR APTT Heparin Anti-Xa Level ABG pH POC ABG pO2 ABG pO2 ABG HCO3 ABG O2 Saturation ABG Base Excess POC ABG pCO2 ABG Hemoglobin ABG Oxyhemoglobin ABG Chloride ABG Glucose Oxyhemoglobin Sodium 149 H Potassium Chloride 108.4 H Carbon Dioxide 31 H BUN 40 H Creatinine 0.7 L Glucose 150 H POC Glucose 128 H Lactic Acid Calcium Phosphorus Magnesium AST ALT Lactate Dehydrogenase Total Bilirubin Direct Bilirubin CK-MB (CK-2) C-Reactive Protein NT-Pro-B Natriuret Pep Total Protein Albumin Arterial Blood Glucose Urine WBC (Auto) Urine Creatinine 02/15/20 02/15/20 02/16/20 17:46 23:50 05:03 WBC RBC Hgb Hct MCHC RDW MCV MCH Lymph % (Auto) [place] % (Auto) [place] # Eos # Lymph # (Auto) [place] # (Auto) Eos # (Auto) Seg Neutrophils % Seg Neuts % (Manual) Baso # (Auto) Lymphocytes % (Manual) Monocytes % (Manual) Eosinophils % (Manual) Basophils % (Manual) Seg Neutrophils # Seg Neutrophils # Man Lymphocytes # (Manual) Monocytes # (Manual) Eosinophils # (Manual) Nucleated RBC % Basophils # (Manual) PT INR APTT Heparin Anti-Xa Level ABG pH POC ABG pO2 ABG pO2 ABG HCO3 ABG O2 Saturation ABG Base Excess POC ABG pCO2 ABG Hemoglobin ABG Oxyhemoglobin ABG Chloride ABG Glucose Oxyhemoglobin Sodium Potassium Chloride Carbon Dioxide BUN Creatinine Glucose POC Glucose 154 H 135 H 148 H Lactic Acid Calcium Phosphorus Magnesium AST ALT Lactate Dehydrogenase Total Bilirubin Direct Bilirubin CK-MB (CK-2) C-Reactive Protein NT-Pro-B Natriuret Pep Total Protein Albumin Arterial Blood Glucose Urine WBC (Auto) Urine Creatinine 02/16/20 02/16/20 07:53 11:28 WBC RBC Hgb Hct MCHC RDW MCV MCH Lymph % (Auto) [place] % (Auto) [place] # Eos # Lymph # (Auto) [place] # (Auto) Eos # (Auto) Seg Neutrophils % Seg Neuts % (Manual) Baso # (Auto) Lymphocytes % (Manual) Monocytes % (Manual) Eosinophils % (Manual) Basophils % (Manual) Seg Neutrophils # Seg Neutrophils # Man Lymphocytes # (Manual) Monocytes # (Manual) Eosinophils # (Manual) Nucleated RBC % Basophils # (Manual) PT INR APTT Heparin Anti-Xa Level ABG pH POC ABG pO2 ABG pO2 ABG HCO3 ABG O2 Saturation ABG Base Excess POC ABG pCO2 ABG Hemoglobin ABG Oxyhemoglobin ABG Chloride ABG Glucose Oxyhemoglobin Sodium Potassium Chloride 107.9 H Carbon Dioxide BUN 38 H Creatinine 0.6 L Glucose 151 H POC Glucose 123 H Lactic Acid Calcium Phosphorus Magnesium AST ALT Lactate Dehydrogenase Total Bilirubin Direct Bilirubin CK-MB (CK-2) C-Reactive Protein NT-Pro-B Natriuret Pep Total Protein Albumin Arterial Blood Glucose Urine WBC (Auto) Urine Creatinine Chest x-ray: pending Allied health notes reviewed: nursing
--- NOTE | 2020-02-16 15:38 | Progress Note ---
Assessment and Plan Assessment and plan: --Acute on chronic hypoxemic respiratory failure; Patient has tracheostomy on vent Continue nebulizers, , trach care Wean off ventilator as tolerated Pulmonary critical following --Acute exacerbation of COPD; Patient is currently on ventilatory support Continue nebulizers. Stable but still unable to wean. --Hypernatremia; free water flushes via feeding tube Closely monitor electrolytes --Hypokalemia; corrected, closely monitor electrolytes --Left lower lobe PE; Continue Eliquis, no evidence of bleeding. Ventilatory support --Acute right lower extremity DVT; Patient is on Eliquis --Bilateral multifocal pneumonia/community-acquired Completed antibiotics, improved --Severe sepsis/bilateral pneumonia: Completed antibiotics --PUI COVID-19 test; 11/24/2019; negative 11/26/2019; negative 12/29/2019: Negative -Ischemic cardiomyopathy Cardiology is following, status post cardiac catheterization on 01/22/2020; Coronary artery disease status post PCI and stent to the LAD Continue current cardiac medications --atrial fibrillation WITH RVR Now rate controlled, Stable on amiodarone and Eliquis AV devin blocking agent. --Acute on chronic combined systolic and diastolic congestive heart failure Ischemic cardiomyopathy left ventricular ejection fraction 40 to 45% --H/o CAD [[facility] 12/2018 in-stent restenosis] --Hypertensive emergency; present on admission Reasonable blood pressures, continue current antihypertensives No change in medical management. --History of alcohol abuse/alcohol withdrawal; Was on CIWA protocol, now stable --Oropharyngeal dysphagia; status post PEG placement Continue PEG feeds per protocol --History of partial small bowel obstruction; resolved Surgery evaluated. At present not a surgical candidate. --Obesity; BMI 34.7 unable to take in adequate amounts of food on his own at this time Severe protein deficiency malnutrition. Patient needs weight reduction when medically stable --Severe protein calorie malnutrition/hypoalbuminemia Nutrition supplements, dietitian following, PEG feeds --DVT prophylaxis;Eliquis --Full CODE STATUS Has not had any real changes. Patient prognosis remains extremely poor family still wishes for full code. We will closely monitor the patient and adjust management as needed Patient critically ill ,very poor prognosis, Consults and recommendations noted and appreciated Brief history: Patient is a 64-year-old male with known history of hypertension, COPD, history of coronary artery disease, CHF with ejection fraction of 20 to 25% 2019 was admitted through emergency room with worsening shortness of breath Patient was found to be hypoxic and in respiratory distress. Patient was placed on CPAP in route to the hospital. Patient remained hypoxic on CPAP BiPAP ,subsequently was intubated. Patient also had bilateral multifocal pneumonia managed appropriately with antibiotics sputum cultures positive for Pseudomonas, ID treated with cefepime and Vanco. His hospital course became complicated with acute PE, DVT, paroxysmal atrial fib - placed on chronic anticoagulation. Patient was difficult to wean off, status post trach and PEG, remains on mechanical ventilation with trach tube. He then developed partial small bowel obstruction evaluated by general surgeon symptom improved with medical Mx, patient was briefly weaned off ventilatory support however, was in respiratory failure requiring full ventilatory support. Cardiac catheterization on 01/22/2020. Patient remains on mechanical ventilatory support. Patients still with elevated heart rate of Afib with RVR continue amiodarone and metoprolol. LVEF 40 to 45% on Eliquis FOR THE Acute PE/DVT. Partial SBO vs ileus- KUB is negative. Will monitor, No further vomiting noted. If no improvement will repeat a chest xray to ensure no aspiration in the last 24 hrs. Patient chronic tracheostomy, remains intubated on ventilatory support 02/03: Mental status more improved, agree with Reglan will change to IV scheduled for two days, no new vomiting. Pseudomonas A in Sputum. 02/04: Clinical improving, amiodarone discontinued due to LFTs, continue Metop rolol.d/w GI, started on Golytely to clear impaction. Started on dialy Miralax. 02/05: Continue supportive care. Noted bowel movement, continue bowel regimen 02/06: Cardiology input noted beta-hebert increased for better suppression of atrial fibrillation. Continue to monitor, no other evidence of nausea vomiting noted. Discussed with respiratory therapist will be continued on weaning protocol with pressure support today. 02/07: Patient successfully weaned off the ventilator, No new complaints, continue monitoring, BM noted, Discussed with pulmonary, 02/08; tracheostomy on T-piece, patient is more alert and awake today 02/09; clinically no change, tracheostomy on vent 02/10; tracheostomy on vent, full CODE STATUS, poor prognosis, 02/11; clinically no change, remains on ventilatory support, full CODE STATUS, discussed with spouse Ms. Paulette Araiza extensively today 02/12. Patient resting comfortably no change on vent with tracheostomy. Still unable to wean. Some increased crackles today. 02/13: Still unable to wean from the vent. Overall prognosis remains extremely poor. 02/14; remains critically ill, tracheostomy on vent, unable to wean, poor prognosis, full CODE STATUS 02/15; patient is more alert and awake today, chronic tracheostomy on T-piece, continue current management DC planning per case management. Disposition very difficult due to lack of resources and insurance History Interval history: Patient is more alert and awake today responding appropriately Tracheostomy on T-piece trial Patient feels better asking for water Vital signs noted Patient chronic tracheostomy, remains intubated on ventilatory support Hospitalist Physical - Constitutional Vitals: Temp Pulse Resp BP Pulse Ox 97.8 F 117 H 28 H 109/82 96 02/16/20 12:00 02/16/20 15:00 02/16/20 15:00 02/16/20 15:00 02/16/20 15:00 General appearance: Present: no acute distress, well-nourished, obese, other (Tracheostomy responds to simple questions appropriately) - EENT Eyes: Present: PERRL, EOM intact ENT: other (Tracheostomy) - Neck Neck: Present: normal ROM, other (Tracheostomy) - Respiratory Respiratory effort: normal Respiratory: bilateral: diminished, negative: rales, rhonchi, wheezing - Cardiovascular Rhythm: regular Heart Sounds: Present: S1 & S2 - Extremities Extremities: no ischemia, No edema - Abdominal General gastrointestinal: soft, non-tender, non-distended, normal bowel sounds - Integumentary Integumentary: Present: clear, warm - Psychiatric Psychiatric: appropriate mood/affect, cooperative - Neurologic Neurologic: moves all extremities HEART Score - HEART Score Troponin: Troponin T < 0.010 ng/mL (0.00-0.029) 01/19/20 01:35 Results - Labs CBC & Chem 7: 02/15/20 06:59 02/16/20 07:53 Labs: Laboratory Last Values WBC 10.2 K/mm3 (4.5-11.0) 02/15/20 06:59 RBC 4.24 M/mm3 (3.65-5.03) 02/15/20 06:59 Hgb 10.4 gm/dl (11.8-15.2) L 02/15/20 06:59 Hct 33.7 % (35.5-45.6) L 02/15/20 06:59 MCV 80 fl (84-94) L 02/15/20 06:59 MCH 24 pg (28-32) L 02/15/20 06:59 MCHC 31 % (32-34) L 02/15/20 06:59 RDW 19.4 % (13.2-15.2) H 02/15/20 06:59 Plt Count 281 K/mm3 (140-440) 02/15/20 06:59 Lymph % (Auto) Workers Compensation Specialist 02/15/20 06:59 [place] % (Auto) Workers Compensation Specialist 02/15/20 06:59 Eos % (Auto) Workers Compensation Specialist 02/15/20 06:59 Baso % (Auto) Workers Compensation Specialist 02/15/20 06:59 Lymph # (Auto) Workers Compensation Specialist 02/15/20 06:59 [place] # (Auto) Workers Compensation Specialist 02/15/20 06:59 Eos # (Auto) Workers Compensation Specialist 02/15/20 06:59 Baso # (Auto) Workers Compensation Specialist 02/15/20 06:59 Add Manual Diff Complete 02/15/20 06:59 Total Counted 100 02/15/20 06:59 Seg Neutrophils % Workers Compensation Specialist 02/15/20 06:59 Seg Neuts % (Manual) 58.0 % (40.0-70.0) 02/15/20 06:59 Band Neutrophils % 0 % 02/15/20 06:59 Lymphocytes % (Manual) 34.0 % (13.4-35.0) 02/15/20 06:59 Reactive Lymphs % (Man) 1.0 % 02/15/20 06:59 Monocytes % (Manual) 4.0 % (0.0-7.3) 02/15/20 06:59 Eosinophils % (Manual) 0 % (0.0-4.3) 02/15/20 06:59 Basophils % (Manual) 2.0 % (0.0-1.8) H 02/15/20 06:59 Metamyelocytes % 1.0 % 02/15/20 06:59 Myelocytes % 0 % 02/15/20 06:59 Promyelocytes % 0 % 02/15/20 06:59 Blast Cells % 0 % 02/15/20 06:59 Nucleated RBC % 1.0 % (0.0-0.9) H 02/15/20 06:59 Seg Neutrophils # Workers Compensation Specialist 02/15/20 06:59 Seg Neutrophils # Man 5.9 K/mm3 (1.8-7.7) 02/15/20 06:59 Band Neutrophils # 0.0 K/mm3 02/15/20 06:59 Lymphocytes # (Manual) 3.5 K/mm3 (1.2-5.4) 02/15/20 06:59 Abs React Lymphs (Man) 0.1 K/mm3 02/15/20 06:59 Monocytes # (Manual) 0.4 K/mm3 (0.0-0.8) 02/15/20 06:59 Eosinophils # (Manual) 0.0 K/mm3 (0.0-0.4) 02/15/20 06:59 Basophils # (Manual) 0.2 K/mm3 (0.0-0.1) H 02/15/20 06:59 Metamyelocytes # 0.1 K/mm3 02/15/20 06:59 Myelocytes # 0.0 K/mm3 02/15/20 06:59 Promyelocytes # 0.0 K/mm3 02/15/20 06:59 Blast Cells # 0.0 K/mm3 02/15/20 06:59 WBC Morphology Not Reportable 02/15/20 06:59 Hypersegmented Neuts Not Reportable 02/15/20 06:59 Hyposegmented Neuts Not Reportable 02/15/20 06:59 Hypogranular Neuts Not Reportable 02/15/20 06:59 Smudge Cells Not Reportable 02/15/20 06:59 Toxic Granulation Not Reportable 02/15/20 06:59 Toxic Vacuolation Not Reportable 02/15/20 06:59 Dohle Bodies Not Reportable 02/15/20 06:59 Pelger-Huet Anomaly Not Reportable 02/15/20 06:59 Hector Rods Not Reportable 02/15/20 06:59 Platelet Estimate Consistent w auto 02/15/20 06:59 Clumped Platelets Not Reportable 02/15/20 06:59 Plt Clumps, EDTA Not Reportable 02/15/20 06:59 Large Platelets Not Reportable 02/15/20 06:59 Giant Platelets Not Reportable 02/15/20 06:59 Platelet Satelliting Not Reportable 02/15/20 06:59 Plt Morphology Comment Giant platelets 02/15/20 06:59 RBC Morphology Not Reportable 02/15/20 06:59 Dimorphic RBCs Not Reportable 02/15/20 06:59 Polychromasia Not Reportable 02/15/20 06:59 Hypochromasia 1+ 02/15/20 06:59 Poikilocytosis Few 02/15/20 06:59 Anisocytosis 1+ 02/15/20 06:59 Microcytosis Not Reportable 02/15/20 06:59 Macrocytosis Not Reportable 02/15/20 06:59 Spherocytes Not Reportable 02/15/20 06:59 Pappenheimer Bodies Not Reportable 02/15/20 06:59 Sickle Cells Not Reportable 02/15/20 06:59 Target Cells 1+ 02/15/20 06:59 Tear Drop Cells Few 02/15/20 06:59 Ovalocytes Not Reportable 02/15/20 06:59 Helmet Cells Not Reportable 02/15/20 06:59 Gottlieb-Salix Bodies Not Reportable 02/15/20 06:59 Boring Rings Not Reportable 02/15/20 06:59 Oc Cells Not Reportable 02/15/20 06:59 Bite Cells Not Reportable 02/15/20 06:59 Crenated Cell Not Reportable 02/15/20 06:59 Elliptocytes Few 02/15/20 06:59 Acanthocytes (Spur) Not Reportable 02/15/20 06:59 Rouleaux Not Reportable 02/15/20 06:59 Hemoglobin C Crystals Not Reportable 02/15/20 06:59 Schistocytes Not Reportable 02/15/20 06:59 Malaria parasites Not Reportable 02/15/20 06:59 Clifford Bodies Not Reportable 02/15/20 06:59 Hem Pathologist Commnt No 02/15/20 06:59 PT 27.0 Sec. (12.2-14.9) H 02/07/20 15:03 INR 2.46 (0.87-1.13) H 02/07/20 15:03 APTT 31.5 Sec. (24.2-36.6) 01/22/20 09:58 Heparin Anti-Xa Level 1.34 U.I./ml (0.3-0.7) H 01/22/20 04:45 ABG pH 7.502 (7.320-7.450) H 02/11/20 14:11 POC ABG pCO2 34.8 mmHg (32.0-48.0) 02/11/20 14:11 ABG pCO2 54.1 mm Hg 02/09/20 21:40 POC ABG pO2 77.7 mmHg (83-108) L 02/11/20 14:11 ABG pO2 59.8 mm Hg (80.0-90.0) L 02/09/20 21:40 POC ABG HCO3 26.7 02/11/20 14:11 ABG HCO3 33.3 mmol/L (20.0-26.0) H 02/09/20 21:40 ABG O2 Saturation 88.9 % (95.0-99.0) L 02/09/20 21:40 ABG O2 Content 12.7 (0.0-44) 02/09/20 21:40 POC ABG Base Excess 3.6 02/11/20 14:11 ABG Base Excess 7.4 mmol/L (-2.0-3.0) H 02/09/20 21:40 ABG Hemoglobin 11.1 (12.0-17.5) L 02/11/20 14:11 ABG Oxyhemoglobin 84 (94-98) L 12/22/19 03:22 ABG Carboxyhemoglobin 2.3 % (0.0-5.0) 02/09/20 21:40 ABG Methemoglobin 0.6 % (0.0-1.5) 02/09/20 21:40 ABG Sodium 144.7 mmol/L (136.0-145.0) 02/11/20 14:11 ABG Potassium 3.5 mmol/L (3.40-4.50) 02/11/20 14:11 ABG Chloride 108.0 mmol/L (98-107) H 02/11/20 14:11 ABG Glucose 151 mg/dL (65-95) H 02/11/20 14:11 Oxyhemoglobin 86.3 % (95.0-99.0) L 02/09/20 21:40 Carboxyhemoglobin 0.7 (0.5-1.5) 12/22/19 03:22 FiO2 30.0 02/11/20 14:11 Sodium 145 mmol/L (137-145) 02/16/20 07:53 Potassium 3.7 mmol/L (3.6-5.0) 02/16/20 07:53 Chloride 107.9 mmol/L (98-107) H 02/16/20 07:53 Carbon Dioxide 27 mmol/L (22-30) 02/16/20 07:53 Anion Gap 14 mmol/L 02/16/20 07:53 BUN 38 mg/dL (9-20) H 02/16/20 07:53 Creatinine 0.6 mg/dL (0.8-1.3) L 02/16/20 07:53 Estimated GFR > 60 ml/min 02/16/20 07:53 BUN/Creatinine Ratio 63 % 02/16/20 07:53 Glucose 151 mg/dL (75-100) H 02/16/20 07:53 POC Glucose 123 mg/dL (70-105) H 02/16/20 11:28 Lactic Acid 1.60 mmol/L (0.7-2.0) 02/03/20 12:49 Calcium 8.8 mg/dL (8.4-10.2) 02/16/20 07:53 Ferritin 84.4 ng/mL (30.0-300.0) 11/24/19 04:53 Phosphorus 4.10 mg/dL (2.5-4.5) 01/31/20 19:24 Magnesium 2.40 mg/dL (1.7-2.3) H 02/10/20 07:40 Total Bilirubin 1.30 mg/dL (0.1-1.2) H 02/08/20 19:00 Direct Bilirubin 0.9 mg/dL (0-0.2) H 02/08/20 19:00 Indirect Bilirubin 0.4 mg/dL 02/08/20 19:00 Total Creatine Kinase 141 units/L (55-170) 11/24/19 02:53 CK-MB (CK-2) 4.3 ng/mL (0.0-4.0) H 11/24/19 02:53 AST 309 units/L (5-40) H 02/08/20 19:00 ALT 650 units/L (7-56) H 02/08/20 19:00 CK-MB (CK-2) Rel Index 3.0 (0-4) 11/24/19 02:53 Alkaline Phosphatase 109 units/L (35-129) 02/08/20 19:00 C-Reactive Protein 8.50 mg/dL (0.00-1.30) H 12/01/19 12:16 Ammonia 35.0 umol/L (25-60) 02/03/20 12:49 Lactate Dehydrogenase 228 units/L (91-180) H 12/19/19 04:45 Troponin T < 0.010 ng/mL (0.00-0.029) 01/19/20 01:35 NT-Pro-B Natriuret Pep 3866 pg/mL (0-900) H 01/01/20 10:40 Total Protein 6.2 g/dL (6.3-8.2) L 02/08/20 19:00 Albumin 2.7 g/dL (3.9-5) L 02/08/20 19:00 Albumin/Globulin Ratio 0.8 % 02/08/20 19:00 Procalcitonin 0.44 ng/mL (<0.15) 02/03/20 12:49 Arterial Blood Glucose 151 mg/dL (65-95) H 02/11/20 14:11 Arterial Blood Ionized Calcium 4.7 mg/dL (4.6-5.3) 02/11/20 14:11 Urine Color [place]y (Yellow) 12/31/19 18:04 Urine Turbidity Clear (Clear) 12/31/19 18:04 Urine pH 5.0 (5.0-7.0) 12/31/19 18:04 Ur Specific [place] 1.023 (1.003-1.030) 12/31/19 18:04 Urine Protein <15 mg/dl mg/dL (Negative) 12/31/19 18:04 Urine Glucose (UA) Neg mg/dL (Negative) 12/31/19 18:04 Urine Ketones Neg mg/dL (Negative) 12/31/19 18:04 Urine Blood Neg (Negative) 12/31/19 18:04 Urine Bacteria (Auto) 1+ /HPF (Negative) 12/03/19 06:03 Urine Nitrite Neg (Negative) 12/31/19 18:04 Urine Bilirubin Neg (Negative) 12/31/19 18:04 Urine Urobilinogen 4.0 mg/dL (<2.0) 12/31/19 18:04 Ur Leukocyte Esterase Neg (Negative) 12/31/19 18:04 Urine WBC (Auto) 2.0 /HPF (0.0-6.0) 12/31/19 18:04 Urine RBC (Auto) 3.0 /HPF (0.0-6.0) 12/31/19 18:04 U Epithel Cells (Auto) 2.0 /HPF (0-13.0) 12/31/19 18:04 Urine Mucus 1+ /HPF 12/31/19 18:04 Urine Creatinine 57.4 mg/dL (0.1-20.0) H 01/31/20 Unknown Urine Sodium 59 mmol/L 01/31/20 Unknown Vancomycin Trough 14.2 ug/mL (5.0-20.0) 12/13/19 15:01 Coronavirus (PCR) Negative (Negative) 12/29/19 10:07 Hepatitis A IgM Ab Non-reactive (NonReactive) 02/05/20 06:37 Hep Bs Antigen Non-reactive (Negative) 02/05/20 06:37 Hep B Core IgM Ab Non-reactive (NonReactive) 02/05/20 06:37 Hepatitis C Antibody Non-reactive (NonReactive) 02/05/20 06:37 Blood Type O POSITIVE 01/21/20 13:00 Antibody Screen Negative 01/21/20 13:00 - Diagnostic Impressions Diagnostic Impressions: Echocardiogram 11/29/19 07:37 Transthoracic Echocardiogram Indication: CHF BP: 116/72 HR: 33 Conclusions *The study is technically limited due to poor acoustic windows. *Global left ventricular systolic function is normal. *The estimated ejection fraction is 50-55%. *Mild concentric left ventricular hypertrophy is observed. *There is trace of mitral regurgitation. *There is mild tricuspid regurgitation. Findings Procedure Info: The study quality is poor. The study is technically limited due to poor acoustic windows. The study is technically limited due to patient body habitus. Left Ventricle: The left ventricular chamber size is normal. Mild concentric left ventricular hypertrophy is observed. Global left ventricular systolic function is normal. The estimated ejection fraction is 50-55%. Left Atrium: The left atrial chamber size is normal. Right Ventricle: The right ventricular cavity size is normal. Right Atrium: The right atrial cavity size is normal. Aortic Valve: The aortic valve leaflets are moderately thickened. There is trace of aortic regurgitation. There is no evidence of aortic stenosis. Mitral Valve: The mitral valve leaflets are mildly thickened. There is trace of mitral regurgitation. There is no evidence of mitral stenosis. Tricuspid Valve: There is mild tricuspid regurgitation. No pulmonary hypertension is noted. Pulmonic Valve: There is trace pulmonic regurgitation. Pericardium: There is no pericardial effusion. Aorta: There is no dilatation of the aortic root. Venous: The inferior vena cava appears normal in size. Contrast: Definity was used to optimize study. Intravenous contrast was used to enhance endocardial border definition. Measurements Chambers 2D Name Value Normal Range Ao root diameter (2D) 3.4 cm (2 - 3.7) Aortic Valve Name Value Normal Range AV Vmax 0.98 m/sec - AV VTI 16.76 cm - AV peak gradient 3.83 mmHg - AV mean gradient 2.57 mmHg - LVOT diameter 3.11 cm - LVOT Vmax 0.68 m/sec - LVOT VTI 11.52 cm - LVOT peak gradient 1.84 mmHg - LVOT mean gradient 1.27 mmHg - SV LVOT 87.31 ml - MALOU (continuity Vmax) 5.24 cm2 - MALOU (continuity VTI) 5.21 cm2 - Tricuspid Valve Name Value Normal Range IVC diameter 2.24 cm (1.2 - 2.3) Hoffman/IV: Voiding Method Indwelling Catheter IV Catheter Type [Right INT / Saline Lock Forearm] IV Catheter Type [Right Hand] Peripheral IV IV Catheter Type [Right Upper INT / Saline Lock arm] IV Catheter Type [Left Upper Mid-line arm] IV Catheter Type [Left Forearm INT / Saline Lock ] IV Catheter Type [Left Hand] Peripheral IV IV Catheter Type [Left Wrist] INT / Saline Lock IV Catheter Type [Right Peripheral IV Antecubital] Active Medications - Current Medications Current Medications: Generic Name Dose Route Start Last Admin Trade Name Freq PRN Reason Stop Dose Admin Acetaminophen 650 mg 12/31/19 11:43 02/13/20 11:09 Tylenol FEEDTUBE 650 mg Q6H PRN Administration Pain, Mild (1-3) Lipase/Protease/Amylase 1 each 01/09/20 12:01 Pancreaze 10,500 Unit FEEDTUBE PRN PRN For Clogged Feeding Tube Apixaban 5 mg 01/22/20 22:00 02/16/20 09:47 Eliquis PO 5 mg Q12HR CAR Administration Protocol Atorvastatin Calcium 40 mg 01/20/20 22:00 02/15/20 21:33 Lipitor PO 40 mg QHS CAR Administration Clopidogrel Bisulfate 75 mg 01/21/20 06:00 02/16/20 09:47 Plavix PO 75 mg QDAY CAR Administration Dextrose 50 ml 01/31/20 18:51 02/05/20 00:56 D50w (25gm) Syringe IV 50 ml Q30MIN PRN Administration Hypoglycemia Protocol Digoxin 0.125 mg 02/10/20 17:00 02/15/20 18:03 Lanoxin IV 0.125 mg DAILY@1700 [facility] Administration Glycopyrrolate 2 mg 01/26/20 20:00 02/16/20 13:55 Glycopyrrolate PO 2 mg TID CAR Administration Haloperidol Lactate 5 mg 02/10/20 14:20 02/11/20 01:49 Haldol IV 5 mg Q6H PRN Administration Agitation Hydrophilic Ointment 1 applic 01/17/20 15:26 Vaseline Lip Therapy TP DIRECT PRN Dry Lips Sodium Chloride 500 mls @ 999 mls/hr 02/11/20 19:00 Nacl 0.9% 500 Ml IV ONCE [facility] Insulin Human Regular 0 unit 02/01/20 18:00 02/16/20 12:13 Humulin R SUB-Q Not Given Q6H [facility] Protocol Lansoprazole 30 mg 02/05/20 16:00 02/16/20 09:47 Prevacid Solutab FEEDTUBE 30 mg QDAY [facility] Administration Metoprolol Tartrate 5 mg 01/11/20 08:00 02/03/20 07:16 Metoprolol IV 5 mg Q6H PRN Administration SEE INSTRUCTIONS Metoprolol Tartrate 50 mg 02/05/20 12:00 02/16/20 12:28 Metoprolol PO 50 mg Q6HR [facility] Administration Midodrine 15 mg 02/04/20 16:00 02/16/20 15:10 Proamatine PO 15 mg TID@0800,1200,1600 [facility] Administration Morphine Sulfate 2 mg 01/06/20 15:41 02/16/20 09:47 Morphine IV 2 mg Q4H PRN Administration Pain, Moderate (4-6) Multi-Ingred Cream/Lotion/Oil/Oint 1 applic 02/01/20 15:52 Artificial Tears Ophth Oint OU Q4HR PRN Dry Eye(s) Nitroglycerin 0.4 mg 01/19/20 21:09 01/20/20 03:03 Nitrostat SL 0.4 mg .Q5MIN PRN Administration Chest Pain Ondansetron HCl 4 mg 01/05/20 14:37 02/14/20 07:32 Zofran IV 4 mg Q8H PRN Administration Nausea And Vomiting Polyethylene Glycol 17 gm 12/04/19 22:00 02/15/20 21:35 Miralax 3350 PO 17 gm QHS CAR Administration Quetiapine Fumarate 300 mg 01/13/20 22:00 02/16/20 09:46 Seroquel PO 300 mg BID CAR Administration Scopolamine 1 each 01/07/20 20:00 01/07/20 21:08 Transderm-Scop TD 1 each Q72HR CAR Administration Simple Syrup 15 ml 01/09/20 12:01 Simple Syrup FEEDTUBE PRN PRN Hypoglycemia Simple Syrup 30 ml 01/09/20 12:01 Simple Syrup FEEDTUBE PRN PRN Hypoglycemia Sodium Bicarbonate 325 mg 01/09/20 12:01 Sodium Bicarbonate FEEDTUBE PRN PRN For Clogged Feeding Tube Sodium Chloride 10 ml 11/24/19 10:00 02/16/20 09:48 Sodium Chloride Flush Syringe 10 Ml IV 10 ml BID CAR Administration Tamsulosin HCl 0.8 mg 12/20/19 22:00 02/15/20 21:32 Flomax PO 0.8 mg QHS CAR Administration Nutrition/Malnutrition Assess - Dietary Evaluation Nutrition/Malnutrition Findings: Nutrition Notes Start: 11/24/19 12:22 Freq: Status: Active Protocol: Document 02/15/20 13:35 LP (Rec: 02/15/20 13:40 LP [id number]) Nutrition Notes Initial or Follow up Reassessment Current Diagnosis Coronary Artery Disease,Heart Failure,Respiratory Failure, Stroke,Hyperlipidemia Other Pertinent Diagnosis Partial SBO, pneu Current Diet Vital AF 1.2 at 75ml/hr Labs/Tests Na 149 BUN 40 Pertinent Medications Reviewed Height 6 ft 2 in Weight 110 kg [place] Body Weight (kg) 86.36 BMI 31.1 Weight change and time frame Wt change noted. Weight Status Obese Subjective/Other Information Trach site wound noted. Pt continues tolerating TF at goal rate. 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 Yes Is Patient Ambulatory and/or Out of Bed No REE-([place]-St. Jeor-confined to bed) 2362.428 Kcal/Kg value to use for calculation 20 Approximate Energy Requirements Using 2200 kcal/Kg Calculation Used for Recommendations Kcal/kg Additional Notes Protein needs are 117-147g (1. 2-1.5 g/kg AdBW of 97.78kg) Fluid needs are 1.5L Nutrition Intervention Change Diet Order: Continue TF via PEG Nutrition Support: Vital AF 1.2 at 75ml/hr. increase Flush 250ml q4h for hypernatremia Flush 100ml q4h once hypernatremia is resolved Kcal 2,160 Protein (gm) 135 Fluid (mL) 1,460 Goal #1 Meet at least 75% of pt's energy and protein needs Anticipated Discharge Needs: unable to determine Follow-Up By: 02/19/20 Additional Comments Follow for TF tolerance, Na
[2020-02-16] MEDS: DIGOXIN 0.5 MG/2 ML INJ IV SCH (17:16)
[2020-02-16] MEDS: ONDANSETRON 4 MG/2 ML INJ IV PRN (17:25)
[2020-02-16] MEDS: HALOPERIDOL LACTATE 5 MG/1 ML INJ IV PRN (20:55)
[2020-02-16] MEDS: POLYETHYLENE GLYCOL 3350 17 GM POWDER PO SCH (20:59)
[2020-02-16] MEDS: METOPROLOL TARTRATE 5 MG/5 ML INJ IV PRN (22:00)
[2020-02-16] MEDS: TAMSULOSIN 0.4 MG CAP PO SCH (22:01)
[2020-02-17] MEDS: METOPROLOL TARTRATE 50 MG TAB PO SCH ×4 (00:06→18:19)
[2020-02-17] MEDS: INSULIN REGULAR, HUMAN 100 UNIT/ML 3ML VIAL SUB-Q SCH ×4 (04:05→18:19)
[2020-02-17] MEDS: HALOPERIDOL LACTATE 5 MG/1 ML INJ IV PRN (04:49)
--- NOTE | 2020-02-17 08:21 | Progress Note ---
Assessment and Plan Acute hypoxemic respiratory failure Bilateral pneumonia, community acquired. Acute LLL branch P.E. Acute DVT Person under investigation for COVID-19 infection. Acute congestive heart failure exacerbation. History of cerebrovascular accident. Acute chronic obstructive pulmonary disease exacerbation. Hypertension and hypertensive urgency at presentation. History of arthritis. Leukocytosis. Lactic acidosis. Oropharyngeal dysphagia - continue Robinul & Scopolamine for secretion control - continue daily SAT's and SBT assessment as tolerated -May need Psych input too better titrate and mange agitation/anxiety-placed Psych consult -CXR, ABG as clinically indicated -PT/OT to treat, mobility- placed PT/OT consult -Conservative fluid management, intermittent diuresis while monitoring renal function and hemodynamics - Discharge planning - continue rate control per cardiology team - continue prn haldol for agitation to avoid hypoventilation - continue Flomax - Midodrine for blood pressure - prn mucomyst nebs re: secretions - continue full anticoagulation with Apixaban - continue seroquel for anxiolysis / delirium - continue to wean oxygen for O2 sats > 92% - continue bronchodilators with routine trach care and pulmonary hygiene per RT - continue Robinul & Scopolamine for secretion control - VAP bundle addressed (Aspiration precautions, HOB >40) - continue to wean per pulmonary driven protocols - continue prn analgesia per CPOT score - follow clinically re: fever curves / trend WBC - Avoid delirium (no benzodiazepines if they can be avoided) - Maintain sleep-wake cycle - enteral nutrition at goal rate as tolerated - continue accuchecks with glycemic control per SSI for target blood glucose goal of 140-180 mg/dL while critically ill; Avoid hypoglycemia - for VTE he is on IV Heparin - continue stress ulcer prophylaxis with Famotidine - continue mobility protocols for pressure ulcer prophylaxis - continue fall precautions - continue wound care management per RN / WCT - Supportive transfusions to keep HgB>7g/dL - Continue to monitor neurologic function - Continue all supportive care ........ re-evaluate in am & prn CONDITION: CRITICAL PROGNOSIS: GUARDED CODE STATUS: FULL CODE The high probability of a clinically significant, sudden or life threatening deterioration of the [Respiratory, cardiovascular & neurological] system(s) required my full and direct attention, intervention and personal management. The aggregate critical care time was [32] minutes without overlap. Time includes spent on [x] Data Review and interpretation [x] Patient assessment and monitoring of vital signs [x] Documentation [x] Medication orders and management Subjective Date of service: 02/17/20 Principal diagnosis: Ac hypoxemic resp failure; Pneumonia; PUI COVID-19; CHF; COPD; HTN Interval history: Patient is seen today for: Acute hypoxemic respiratory failure; Adan. Pneumonia (CAP); PUI COVID-19 infection; AE-CHF; AE-COPD; H/O CVA; HTN; PE, DVT Seen and examined at bedside; 24 hour events reviewed; nursing and respiratory care staff consulted; no adverse overnight events reported to me; resting peacefully in bed; s/p trach on PSV , awake and alert ,tolerating tube feedings. Vent AC-VC 12/450/+6/30% Size#6 Rosal[place], did not tolerate ATP trials this morning, placed on PSV. When he was placed on ATP- became bradycardic with increased work of breathing Mouths words to make needs known, is interactive Objective Vital Signs - 12hr 02/16/20 02/16/20 02/16/20 20:30 21:00 21:22 Temperature Pulse Rate 123 H 117 H 109 H Pulse Rate [ From Monitor] Respiratory 26 H 29 H Rate Blood Pressure 119/90 119/95 119/95 O2 Sat by Pulse 98 99 98 Oximetry O2 Sat by Pulse Oximetry [ Assessment] 02/16/20 02/16/20 02/16/20 21:30 22:00 22:30 Temperature Pulse Rate 110 H 116 H 115 H Pulse Rate [ From Monitor] Respiratory 13 28 H 29 H Rate Blood Pressure 119/91 129/97 130/89 O2 Sat by Pulse 99 98 Oximetry O2 Sat by Pulse Oximetry [ Assessment] 02/16/20 02/16/20 02/17/20 23:00 23:30 00:00 Temperature 98.4 F Pulse Rate 118 H 94 H 88 Pulse Rate [ 88 From Monitor] Respiratory 32 H 22 27 H Rate Blood Pressure 107/88 106/72 O2 Sat by Pulse 95 Oximetry O2 Sat by Pulse Oximetry [ Assessment] 02/17/20 02/17/20 02/17/20 00:01 00:13 00:30 Temperature Pulse Rate 96 H 103 H 94 H Pulse Rate [ From Monitor] Respiratory 29 H 28 H Rate Blood Pressure 113/74 113/74 112/82 O2 Sat by Pulse 97 100 97 Oximetry O2 Sat by Pulse Oximetry [ Assessment] 02/17/20 02/17/20 02/17/20 01:00 01:30 02:00 Temperature Pulse Rate 85 94 H 96 H Pulse Rate [ From Monitor] Respiratory 24 26 H 28 H Rate Blood Pressure 109/71 99/81 101/77 O2 Sat by Pulse 97 98 Oximetry O2 Sat by Pulse Oximetry [ Assessment] 02/17/20 02/17/20 02/17/20 02:30 03:00 03:30 Temperature Pulse Rate 94 H 95 H 112 H Pulse Rate [ From Monitor] Respiratory 25 H 23 21 Rate Blood Pressure 95/76 99/74 108/79 O2 Sat by Pulse 98 96 97 Oximetry O2 Sat by Pulse Oximetry [ Assessment] 02/17/20 02/17/20 02/17/20 03:51 03:53 03:55 Temperature Pulse Rate 107 H 110 H Pulse Rate [ From Monitor] Respiratory Rate Blood Pressure 108/79 108/79 O2 Sat by Pulse 99 99 Oximetry O2 Sat by Pulse 97 Oximetry [ Assessment] 02/17/20 02/17/20 02/17/20 03:59 04:00 04:01 Temperature 97.1 F L Pulse Rate 108 H Pulse Rate [ 110 H From Monitor] Respiratory 25 H 26 H Rate Blood Pressure 109/83 O2 Sat by Pulse 95 98 Oximetry O2 Sat by Pulse Oximetry [ Assessment] 02/17/20 02/17/20 02/17/20 04:31 05:00 05:01 Temperature Pulse Rate 100 H 113 H 114 H Pulse Rate [ From Monitor] Respiratory 29 H 26 H Rate Blood Pressure 115/83 115/83 119/78 O2 Sat by Pulse 95 98 Oximetry O2 Sat by Pulse Oximetry [ Assessment] 02/17/20 02/17/20 02/17/20 05:31 06:01 06:30 Temperature Pulse Rate 121 H 105 H 113 H Pulse Rate [ From Monitor] Respiratory 32 H 31 H 34 H Rate Blood Pressure 115/86 116/75 116/88 O2 Sat by Pulse 96 99 98 Oximetry O2 Sat by Pulse Oximetry [ Assessment] 02/17/20 02/17/20 02/17/20 07:00 07:40 07:52 Temperature Pulse Rate 114 H 108 H 114 H Pulse Rate [ From Monitor] Respiratory 35 H Rate Blood Pressure 127/93 120/91 120/91 O2 Sat by Pulse 98 97 97 Oximetry O2 Sat by Pulse Oximetry [ Assessment] Constitutional: appears uncomfortable, other (elelelderly and obese male, normocephalic with mildly increased respiratory effort at rest) Eyes: non-icteric ENT: oropharynx moist, other (+ midline tracheostomy) Neck: supple, no JVD Effort: mildly labored Ascultation: Bilateral: clear, diminished breath sounds, rhonchi (and referred upper airway sounds), other (tracheal secretions ) Percussion: Bilateral: not dull Cardiovascular: irregular rhythm, other (flow murmur) Gastrointestinal: normoactive bowel sounds, soft, non-tender, non-distended (protuberant), other (protuberant; PEG in place) Integumentary: normal Extremities: no cyanosis, pulses normal, no ischemia or petechiae, edema (bilateral upper ) Neurologic: non-focal exam (moves extremities), pupils equal and round, CN II- XII normal, unable to assess Psychiatric: anxious CBC and BMP: 02/15/20 06:59 02/16/20 07:53 ABG, PT/INR, D-dimer: ABG ABG pH 7.502 (7.320-7.450) H 02/11/20 14:11 POC ABG pCO2 34.8 mmHg (32.0-48.0) 02/11/20 14:11 ABG pCO2 54.1 mm Hg 02/09/20 21:40 POC ABG pO2 77.7 mmHg (83-108) L 02/11/20 14:11 ABG pO2 59.8 mm Hg (80.0-90.0) L 02/09/20 21:40 POC ABG HCO3 26.7 02/11/20 14:11 ABG O2 Saturation 88.9 % (95.0-99.0) L 02/09/20 21:40 PT/INR, D-dimer PT 27.0 Sec. (12.2-14.9) H 02/07/20 15:03 INR 2.46 (0.87-1.13) H 02/07/20 15:03 Abnormal lab findings: Abnormal Labs 11/24/19 11/24/19 11/24/19 02:53 02:53 03:45 WBC 14.3 H RBC Hgb Hct MCHC RDW 17.2 H MCV MCH Lymph % (Auto) [place] % (Auto) [place] # Eos # Lymph # (Auto) [place] # (Auto) Eos # (Auto) Seg Neutrophils % Seg Neuts % (Manual) Baso # (Auto) Lymphocytes % (Manual) Monocytes % (Manual) Eosinophils % (Manual) Basophils % (Manual) Seg Neutrophils # Seg Neutrophils # Man 8.3 H Lymphocytes # (Manual) Monocytes # (Manual) 0.9 H Eosinophils # (Manual) Nucleated RBC % Basophils # (Manual) PT INR APTT Heparin Anti-Xa Level ABG pH 7.313 L POC ABG pO2 ABG pO2 102.8 H ABG HCO3 ABG O2 Saturation ABG Base Excess -2.9 L POC ABG pCO2 ABG Hemoglobin ABG Oxyhemoglobin ABG Chloride ABG Glucose Oxyhemoglobin 93.9 L Sodium Potassium Chloride Carbon Dioxide BUN Creatinine Glucose 195 H POC Glucose Lactic Acid Calcium Phosphorus Magnesium AST ALT Lactate Dehydrogenase Total Bilirubin Direct Bilirubin CK-MB (CK-2) 4.3 H C-Reactive Protein NT-Pro-B Natriuret Pep 1181 H Total Protein Albumin Arterial Blood Glucose Urine WBC (Auto) Urine Creatinine 11/24/19 11/24/19 11/24/19 04:53 04:53 10:37 WBC RBC Hgb Hct MCHC RDW MCV MCH Lymph % (Auto) [place] % (Auto) [place] # Eos # Lymph # (Auto) [place] # (Auto) Eos # (Auto) Seg Neutrophils % Seg Neuts % (Manual) Baso # (Auto) Lymphocytes % (Manual) Monocytes % (Manual) Eosinophils % (Manual) Basophils % (Manual) Seg Neutrophils # Seg Neutrophils # Man Lymphocytes # (Manual) Monocytes # (Manual) Eosinophils # (Manual) Nucleated RBC % Basophils # (Manual) PT INR APTT Heparin Anti-Xa Level ABG pH POC ABG pO2 ABG pO2 ABG HCO3 ABG O2 Saturation ABG Base Excess POC ABG pCO2 ABG Hemoglobin ABG Oxyhemoglobin ABG Chloride ABG Glucose Oxyhemoglobin Sodium Potassium Chloride Carbon Dioxide BUN Creatinine Glucose 162 H POC Glucose Lactic Acid 2.40 H* 2.50 H* Calcium Phosphorus Magnesium AST ALT Lactate Dehydrogenase 240 H Total Bilirubin Direct Bilirubin CK-MB (CK-2) C-Reactive Protein NT-Pro-B Natriuret Pep Total Protein Albumin Arterial Blood Glucose Urine WBC (Auto) Urine Creatinine 11/24/19 11/24/1920 12:21 14:50 19:54 WBC RBC Hgb Hct MCHC RDW MCV MCH Lymph % (Auto) [place] % (Auto) [place] # Eos # Lymph # (Auto) [place] # (Auto) Eos # (Auto) Seg Neutrophils % Seg Neuts % (Manual) Baso # (Auto) Lymphocytes % (Manual) Monocytes % (Manual) Eosinophils % (Manual) Basophils % (Manual) Seg Neutrophils # Seg Neutrophils # Man Lymphocytes # (Manual) Monocytes # (Manual) Eosinophils # (Manual) Nucleated RBC % Basophils # (Manual) PT INR APTT Heparin Anti-Xa Level ABG pH POC ABG pO2 ABG pO2 ABG HCO3 ABG O2 Saturation ABG Base Excess POC ABG pCO2 ABG Hemoglobin ABG Oxyhemoglobin ABG Chloride ABG Glucose Oxyhemoglobin Sodium Potassium Chloride Carbon Dioxide BUN Creatinine Glucose POC Glucose 145 H 143 H 124 H Lactic Acid Calcium Phosphorus Magnesium AST ALT Lactate Dehydrogenase Total Bilirubin Direct Bilirubin CK-MB (CK-2) C-Reactive Protein NT-Pro-B Natriuret Pep Total Protein Albumin Arterial Blood Glucose Urine WBC (Auto) Urine Creatinine 11/25/19 11/25/19 11/25/19 00:18 03:18 05:11 WBC 13.7 H RBC Hgb Hct MCHC RDW 17.1 H MCV MCH Lymph % (Auto) 10.8 L [place] % (Auto) 8.7 H [place] # 1.2 H Eos # Lymph # (Auto) [place] # (Auto) Eos # (Auto) Seg Neutrophils % 80.2 H Seg Neuts % (Manual) Baso # (Auto) Lymphocytes % (Manual) Monocytes % (Manual) Eosinophils % (Manual) Basophils % (Manual) Seg Neutrophils # 11.0 H Seg Neutrophils # Man Lymphocytes # (Manual) Monocytes # (Manual) Eosinophils # (Manual) Nucleated RBC % Basophils # (Manual) PT INR APTT Heparin Anti-Xa Level ABG pH 7.333 L POC ABG pO2 ABG pO2 61.2 L ABG HCO3 ABG O2 Saturation 90.2 L ABG Base Excess POC ABG pCO2 ABG Hemoglobin 13.7 L ABG Oxyhemoglobin ABG Chloride ABG Glucose Oxyhemoglobin 88.2 L Sodium Potassium Chloride Carbon Dioxide BUN Creatinine Glucose POC Glucose 109 H Lactic Acid Calcium Phosphorus Magnesium AST ALT Lactate Dehydrogenase Total Bilirubin Direct Bilirubin CK-MB (CK-2) C-Reactive Protein NT-Pro-B Natriuret Pep Total Protein Albumin Arterial Blood Glucose Urine WBC (Auto) Urine Creatinine 11/25/19 11/25/19 11/26/19 05:11 11:40 03:12 WBC RBC Hgb Hct MCHC RDW MCV MCH Lymph % (Auto) [place] % (Auto) [place] # Eos # Lymph # (Auto) [place] # (Auto) Eos # (Auto) Seg Neutrophils % Seg Neuts % (Manual) Baso # (Auto) Lymphocytes % (Manual) Monocytes % (Manual) Eosinophils % (Manual) Basophils % (Manual) Seg Neutrophils # Seg Neutrophils # Man Lymphocytes # (Manual) Monocytes # (Manual) Eosinophils # (Manual) Nucleated RBC % Basophils # (Manual) PT INR APTT Heparin Anti-Xa Level ABG pH POC ABG pO2 ABG pO2 155.1 H ABG HCO3 27.8 H ABG O2 Saturation ABG Base Excess POC ABG pCO2 ABG Hemoglobin 12.2 L ABG Oxyhemoglobin ABG Chloride ABG Glucose Oxyhemoglobin Sodium Potassium Chloride Carbon Dioxide BUN 23 H Creatinine Glucose 110 H POC Glucose 108 H Lactic Acid Calcium Phosphorus Magnesium AST ALT Lactate Dehydrogenase Total Bilirubin Direct Bilirubin CK-MB (CK-2) C-Reactive Protein NT-Pro-B Natriuret Pep Total Protein Albumin Arterial Blood Glucose Urine WBC (Auto) Urine Creatinine 11/26/19 11/26/19 11/26/19 06:17 10:43 10:43 WBC 11.4 H RBC Hgb Hct MCHC RDW 17.1 H MCV MCH Lymph % (Auto) [place] % (Auto) [place] # Eos # Lymph # (Auto) [place] # (Auto) Eos # (Auto) Seg Neutrophils % Seg Neuts % (Manual) Baso # (Auto) Lymphocytes % (Manual) Monocytes % (Manual) Eosinophils % (Manual) Basophils % (Manual) Seg Neutrophils # Seg Neutrophils # Man Lymphocytes # (Manual) Monocytes # (Manual) Eosinophils # (Manual) Nucleated RBC % Basophils # (Manual) PT INR APTT Heparin Anti-Xa Level ABG pH POC ABG pO2 ABG pO2 ABG HCO3 ABG O2 Saturation ABG Base Excess POC ABG pCO2 ABG Hemoglobin ABG Oxyhemoglobin ABG Chloride ABG Glucose Oxyhemoglobin Sodium Potassium Chloride Carbon Dioxide BUN 29 H Creatinine Glucose POC Glucose 107 H Lactic Acid Calcium Phosphorus Magnesium AST ALT Lactate Dehydrogenase Total Bilirubin Direct Bilirubin CK-MB (CK-2) C-Reactive Protein NT-Pro-B Natriuret Pep Total Protein Albumin Arterial Blood Glucose Urine WBC (Auto) Urine Creatinine 11/26/19 11/27/19 11/27/19 17:11 01:53 04:11 WBC RBC Hgb Hct MCHC RDW MCV MCH Lymph % (Auto) [place] % (Auto) [place] # Eos # Lymph # (Auto) [place] # (Auto) Eos # (Auto) Seg Neutrophils % Seg Neuts % (Manual) Baso # (Auto) Lymphocytes % (Manual) Monocytes % (Manual) Eosinophils % (Manual) Basophils % (Manual) Seg Neutrophils # Seg Neutrophils # Man Lymphocytes # (Manual) Monocytes # (Manual) Eosinophils # (Manual) Nucleated RBC % Basophils # (Manual) PT INR APTT Heparin Anti-Xa Level ABG pH POC ABG pO2 ABG pO2 ABG HCO3 29.2 H ABG O2 Saturation ABG Base Excess 3.4 H POC ABG pCO2 ABG Hemoglobin 13.3 L ABG Oxyhemoglobin ABG Chloride ABG Glucose Oxyhemoglobin 94.5 L Sodium Potassium Chloride Carbon Dioxide BUN Creatinine Glucose POC Glucose 113 H 108 H Lactic Acid Calcium Phosphorus Magnesium AST ALT Lactate Dehydrogenase Total Bilirubin Direct Bilirubin CK-MB (CK-2) C-Reactive Protein NT-Pro-B Natriuret Pep Total Protein Albumin Arterial Blood Glucose Urine WBC (Auto) Urine Creatinine 11/27/19 11/28/19 11/28/19 05:27 05:00 05:25 WBC RBC Hgb Hct MCHC RDW MCV MCH Lymph % (Auto) [place] % (Auto) [place] # Eos # Lymph # (Auto) [place] # (Auto) Eos # (Auto) Seg Neutrophils % Seg Neuts % (Manual) Baso # (Auto) Lymphocytes % (Manual) Monocytes % (Manual) Eosinophils % (Manual) Basophils % (Manual) Seg Neutrophils # Seg Neutrophils # Man Lymphocytes # (Manual) Monocytes # (Manual) Eosinophils # (Manual) Nucleated RBC % Basophils # (Manual) PT INR APTT Heparin Anti-Xa Level ABG pH POC ABG pO2 68.1 L ABG pO2 ABG HCO3 ABG O2 Saturation ABG Base Excess POC ABG pCO2 ABG Hemoglobin ABG Oxyhemoglobin 91.2 L ABG Chloride ABG Glucose Oxyhemoglobin Sodium Potassium Chloride Carbon Dioxide BUN Creatinine Glucose POC Glucose 111 H 110 H Lactic Acid Calcium Phosphorus Magnesium AST ALT Lactate Dehydrogenase Total Bilirubin Direct Bilirubin CK-MB (CK-2) C-Reactive Protein NT-Pro-B Natriuret Pep Total Protein Albumin Arterial Blood Glucose Urine WBC (Auto) Urine Creatinine 11/28/19 11/28/19 11/28/19 12:08 13:47 13:47 WBC 11.3 H RBC Hgb Hct MCHC RDW 16.1 H MCV MCH Lymph % (Auto) [place] % (Auto) 9.9 H [place] # 1.1 H Eos # Lymph # (Auto) [place] # (Auto) Eos # (Auto) Seg Neutrophils % 71.4 H Seg Neuts % (Manual) Baso # (Auto) Lymphocytes % (Manual) Monocytes % (Manual) Eosinophils % (Manual) Basophils % (Manual) Seg Neutrophils # 8.1 H Seg Neutrophils # Man Lymphocytes # (Manual) Monocytes # (Manual) Eosinophils # (Manual) Nucleated RBC % Basophils # (Manual) PT INR APTT Heparin Anti-Xa Level ABG pH POC ABG pO2 ABG pO2 ABG HCO3 ABG O2 Saturation ABG Base Excess POC ABG pCO2 ABG Hemoglobin ABG Oxyhemoglobin ABG Chloride ABG Glucose Oxyhemoglobin Sodium Potassium Chloride Carbon Dioxide BUN 23 H Creatinine Glucose 123 H POC Glucose 112 H Lactic Acid Calcium Phosphorus Magnesium AST ALT Lactate Dehydrogenase Total Bilirubin Direct Bilirubin CK-MB (CK-2) C-Reactive Protein NT-Pro-B Natriuret Pep Total Protein Albumin 3.7 L Arterial Blood Glucose Urine WBC (Auto) Urine Creatinine 11/28/19 11/29/19 11/29/19 17:26 03:55 17:04 WBC RBC Hgb Hct MCHC RDW MCV MCH Lymph % (Auto) [place] % (Auto) [place] # Eos # Lymph # (Auto) [place] # (Auto) Eos # (Auto) Seg Neutrophils % Seg Neuts % (Manual) Baso # (Auto) Lymphocytes % (Manual) Monocytes % (Manual) Eosinophils % (Manual) Basophils % (Manual) Seg Neutrophils # Seg Neutrophils # Man Lymphocytes # (Manual) Monocytes # (Manual) Eosinophils # (Manual) Nucleated RBC % Basophils # (Manual) PT INR APTT Heparin Anti-Xa Level ABG pH POC ABG pO2 ABG pO2 65.7 L ABG HCO3 28.3 H ABG O2 Saturation 93.9 L ABG Base Excess 3.6 H POC ABG pCO2 ABG Hemoglobin 13.3 L ABG Oxyhemoglobin ABG Chloride ABG Glucose Oxyhemoglobin 91.5 L Sodium Potassium Chloride Carbon Dioxide BUN Creatinine Glucose POC Glucose 123 H 119 H Lactic Acid Calcium Phosphorus Magnesium AST ALT Lactate Dehydrogenase Total Bilirubin Direct Bilirubin CK-MB (CK-2) C-Reactive Protein NT-Pro-B Natriuret Pep Total Protein Albumin Arterial Blood Glucose Urine WBC (Auto) Urine Creatinine 11/30/19 11/30/19 11/30/19 04:17 04:17 04:56 WBC 13.4 H RBC Hgb Hct MCHC RDW 15.6 H MCV MCH Lymph % (Auto) [place] % (Auto) [place] # Eos # Lymph # (Auto) [place] # (Auto) Eos # (Auto) Seg Neutrophils % Seg Neuts % (Manual) Baso # (Auto) Lymphocytes % (Manual) Monocytes % (Manual) Eosinophils % (Manual) Basophils % (Manual) Seg Neutrophils # Seg Neutrophils # Man Lymphocytes # (Manual) Monocytes # (Manual) Eosinophils # (Manual) Nucleated RBC % Basophils # (Manual) PT INR APTT Heparin Anti-Xa Level ABG pH POC ABG pO2 ABG pO2 56.3 L ABG HCO3 29.3 H ABG O2 Saturation 91.5 L ABG Base Excess 4.7 H POC ABG pCO2 ABG Hemoglobin 12.1 L ABG Oxyhemoglobin ABG Chloride ABG Glucose Oxyhemoglobin 89.2 L Sodium 147 H Potassium Chloride Carbon Dioxide BUN 30 H Creatinine Glucose 124 H POC Glucose Lactic Acid Calcium Phosphorus Magnesium AST ALT Lactate Dehydrogenase Total Bilirubin Direct Bilirubin CK-MB (CK-2) C-Reactive Protein NT-Pro-B Natriuret Pep Total Protein Albumin 3.8 L Arterial Blood Glucose Urine WBC (Auto) Urine Creatinine 11/30/19 11/30/19 11/30/19 05:51 11:54 18:17 WBC RBC Hgb Hct MCHC RDW MCV MCH Lymph % (Auto) [place] % (Auto) [place] # Eos # Lymph # (Auto) [place] # (Auto) Eos # (Auto) Seg Neutrophils % Seg Neuts % (Manual) Baso # (Auto) Lymphocytes % (Manual) Monocytes % (Manual) Eosinophils % (Manual) Basophils % (Manual) Seg Neutrophils # Seg Neutrophils # Man Lymphocytes # (Manual) Monocytes # (Manual) Eosinophils # (Manual) Nucleated RBC % Basophils # (Manual) PT INR APTT Heparin Anti-Xa Level ABG pH POC ABG pO2 ABG pO2 ABG HCO3 ABG O2 Saturation ABG Base Excess POC ABG pCO2 ABG Hemoglobin ABG Oxyhemoglobin ABG Chloride ABG Glucose Oxyhemoglobin Sodium Potassium Chloride Carbon Dioxide BUN Creatinine Glucose POC Glucose 127 H 115 H 143 H Lactic Acid Calcium Phosphorus Magnesium AST ALT Lactate Dehydrogenase Total Bilirubin Direct Bilirubin CK-MB (CK-2) C-Reactive Protein NT-Pro-B Natriuret Pep Total Protein Albumin Arterial Blood Glucose Urine WBC (Auto) Urine Creatinine 12/01/19 12/01/19 12/01/19 01:18 05:22 12:16 WBC RBC Hgb Hct MCHC RDW MCV MCH Lymph % (Auto) [place] % (Auto) [place] # Eos # Lymph # (Auto) [place] # (Auto) Eos # (Auto) Seg Neutrophils % Seg Neuts % (Manual) Baso # (Auto) Lymphocytes % (Manual) Monocytes % (Manual) Eosinophils % (Manual) Basophils % (Manual) Seg Neutrophils # Seg Neutrophils # Man Lymphocytes # (Manual) Monocytes # (Manual) Eosinophils # (Manual) Nucleated RBC % Basophils # (Manual) PT INR APTT Heparin Anti-Xa Level ABG pH POC ABG pO2 ABG pO2 ABG HCO3 ABG O2 Saturation ABG Base Excess POC ABG pCO2 ABG Hemoglobin ABG Oxyhemoglobin ABG Chloride ABG Glucose Oxyhemoglobin Sodium Potassium 3.5 L Chloride 107.8 H Carbon Dioxide BUN 37 H Creatinine Glucose 157 H POC Glucose 118 H 148 H Lactic Acid Calcium 8.2 L D Phosphorus Magnesium AST 48 H ALT 60 H Lactate Dehydrogenase 194 H Total Bilirubin Direct Bilirubin CK-MB (CK-2) C-Reactive Protein 8.50 H NT-Pro-B Natriuret Pep Total Protein 5.5 L Albumin 2.8 L Arterial Blood Glucose Urine WBC (Auto) Urine Creatinine 12/01/19 12/02/19 12/02/19 18:04 00:05 05:16 WBC 11.4 H RBC Hgb Hct MCHC RDW 15.9 H MCV MCH Lymph % (Auto) [place] % (Auto) 9.9 H [place] # 1.1 H Eos # Lymph # (Auto) [place] # (Auto) Eos # (Auto) Seg Neutrophils % 70.3 H Seg Neuts % (Manual) Baso # (Auto) Lymphocytes % (Manual) Monocytes % (Manual) Eosinophils % (Manual) Basophils % (Manual) Seg Neutrophils # 8.0 H Seg Neutrophils # Man Lymphocytes # (Manual) Monocytes # (Manual) Eosinophils # (Manual) Nucleated RBC % Basophils # (Manual) PT INR APTT Heparin Anti-Xa Level ABG pH POC ABG pO2 ABG pO2 ABG HCO3 ABG O2 Saturation ABG Base Excess POC ABG pCO2 ABG Hemoglobin ABG Oxyhemoglobin ABG Chloride ABG Glucose Oxyhemoglobin Sodium Potassium Chloride Carbon Dioxide BUN Creatinine Glucose POC Glucose 143 H 107 H Lactic Acid Calcium Phosphorus Magnesium AST ALT Lactate Dehydrogenase Total Bilirubin Direct Bilirubin CK-MB (CK-2) C-Reactive Protein NT-Pro-B Natriuret Pep Total Protein Albumin Arterial Blood Glucose Urine WBC (Auto) Urine Creatinine 12/02/19 12/02/19 12/02/19 05:16 06:03 11:52 WBC RBC Hgb Hct MCHC RDW MCV MCH Lymph % (Auto) [place] % (Auto) [place] # Eos # Lymph # (Auto) [place] # (Auto) Eos # (Auto) Seg Neutrophils % Seg Neuts % (Manual) Baso # (Auto) Lymphocytes % (Manual) Monocytes % (Manual) Eosinophils % (Manual) Basophils % (Manual) Seg Neutrophils # Seg Neutrophils # Man Lymphocytes # (Manual) Monocytes # (Manual) Eosinophils # (Manual) Nucleated RBC % Basophils # (Manual) PT INR APTT Heparin Anti-Xa Level ABG pH POC ABG pO2 ABG pO2 ABG HCO3 ABG O2 Saturation ABG Base Excess POC ABG pCO2 ABG Hemoglobin ABG Oxyhemoglobin ABG Chloride ABG Glucose Oxyhemoglobin Sodium 146 H Potassium Chloride Carbon Dioxide BUN 28 H Creatinine Glucose 123 H POC Glucose 110 H 152 H Lactic Acid Calcium Phosphorus Magnesium AST ALT Lactate Dehydrogenase Total Bilirubin Direct Bilirubin CK-MB (CK-2) C-Reactive Protein NT-Pro-B Natriuret Pep Total Protein Albumin Arterial Blood Glucose Urine WBC (Auto) Urine Creatinine 12/02/19 12/02/19 12/02/19 12:58 17:58 23:36 WBC RBC Hgb Hct MCHC RDW MCV MCH Lymph % (Auto) [place] % (Auto) [place] # Eos # Lymph # (Auto) [place] # (Auto) Eos # (Auto) Seg Neutrophils % Seg Neuts % (Manual) Baso # (Auto) Lymphocytes % (Manual) Monocytes % (Manual) Eosinophils % (Manual) Basophils % (Manual) Seg Neutrophils # Seg Neutrophils # Man Lymphocytes # (Manual) Monocytes # (Manual) Eosinophils # (Manual) Nucleated RBC % Basophils # (Manual) PT INR APTT Heparin Anti-Xa Level ABG pH POC ABG pO2 78.1 L ABG pO2 ABG HCO3 ABG O2 Saturation ABG Base Excess POC ABG pCO2 ABG Hemoglobin ABG Oxyhemoglobin ABG Chloride ABG Glucose Oxyhemoglobin Sodium Potassium Chloride Carbon Dioxide BUN Creatinine Glucose POC Glucose 120 H 123 H Lactic Acid Calcium Phosphorus Magnesium AST ALT Lactate Dehydrogenase Total Bilirubin Direct Bilirubin CK-MB (CK-2) C-Reactive Protein NT-Pro-B Natriuret Pep Total Protein Albumin Arterial Blood Glucose Urine WBC (Auto) Urine Creatinine 12/03/19 12/03/19 12/03/19 06:03 06:14 11:46 WBC RBC Hgb Hct MCHC RDW MCV MCH Lymph % (Auto) [place] % (Auto) [place] # Eos # Lymph # (Auto) [place] # (Auto) Eos # (Auto) Seg Neutrophils % Seg Neuts % (Manual) Baso # (Auto) Lymphocytes % (Manual) Monocytes % (Manual) Eosinophils % (Manual) Basophils % (Manual) Seg Neutrophils # Seg Neutrophils # Man Lymphocytes # (Manual) Monocytes # (Manual) Eosinophils # (Manual) Nucleated RBC % Basophils # (Manual) PT INR APTT Heparin Anti-Xa Level ABG pH POC ABG pO2 ABG pO2 ABG HCO3 ABG O2 Saturation ABG Base Excess POC ABG pCO2 ABG Hemoglobin ABG Oxyhemoglobin ABG Chloride ABG Glucose Oxyhemoglobin Sodium Potassium Chloride Carbon Dioxide BUN Creatinine Glucose POC Glucose 142 H 130 H Lactic Acid Calcium Phosphorus Magnesium AST ALT Lactate Dehydrogenase Total Bilirubin Direct Bilirubin CK-MB (CK-2) C-Reactive Protein NT-Pro-B Natriuret Pep Total Protein Albumin Arterial Blood Glucose Urine WBC (Auto) 8.0 H Urine Creatinine 12/03/19 12/03/19 12/04/19 15:50 17:39 00:04 WBC RBC Hgb Hct MCHC RDW MCV MCH Lymph % (Auto) [place] % (Auto) [place] # Eos # Lymph # (Auto) [place] # (Auto) Eos # (Auto) Seg Neutrophils % Seg Neuts % (Manual) Baso # (Auto) Lymphocytes % (Manual) Monocytes % (Manual) Eosinophils % (Manual) Basophils % (Manual) Seg Neutrophils # Seg Neutrophils # Man Lymphocytes # (Manual) Monocytes # (Manual) Eosinophils # (Manual) Nucleated RBC % Basophils # (Manual) PT INR APTT Heparin Anti-Xa Level ABG pH POC ABG pO2 ABG pO2 ABG HCO3 ABG O2 Saturation ABG Base Excess POC ABG pCO2 ABG Hemoglobin ABG Oxyhemoglobin ABG Chloride ABG Glucose Oxyhemoglobin Sodium Potassium Chloride Carbon Dioxide BUN Creatinine Glucose POC Glucose 146 H 133 H Lactic Acid Calcium Phosphorus 2.40 L Magnesium AST ALT Lactate Dehydrogenase Total Bilirubin Direct Bilirubin CK-MB (CK-2) C-Reactive Protein NT-Pro-B Natriuret Pep Total Protein Albumin Arterial Blood Glucose Urine WBC (Auto) Urine Creatinine 12/04/19 12/04/19 12/04/19 03:58 03:58 05:22 WBC 12.5 H RBC Hgb 11.2 L Hct 35.2 L MCHC RDW 16.0 H MCV MCH Lymph % (Auto) [place] % (Auto) 9.6 H [place] # 1.2 H Eos # 0.5 H Lymph # (Auto) [place] # (Auto) Eos # (Auto) Seg Neutrophils % Seg Neuts % (Manual) Baso # (Auto) Lymphocytes % (Manual) Monocytes % (Manual) Eosinophils % (Manual) Basophils % (Manual) Seg Neutrophils # 8.6 H Seg Neutrophils # Man Lymphocytes # (Manual) Monocytes # (Manual) Eosinophils # (Manual) Nucleated RBC % Basophils # (Manual) PT INR APTT Heparin Anti-Xa Level ABG pH POC ABG pO2 ABG pO2 ABG HCO3 ABG O2 Saturation ABG Base Excess POC ABG pCO2 ABG Hemoglobin ABG Oxyhemoglobin ABG Chloride ABG Glucose Oxyhemoglobin Sodium 146 H Potassium Chloride 108.6 H Carbon Dioxide BUN 30 H Creatinine 0.7 L Glucose 121 H POC Glucose 132 H Lactic Acid Calcium Phosphorus Magnesium AST ALT Lactate Dehydrogenase Total Bilirubin Direct Bilirubin CK-MB (CK-2) C-Reactive Protein NT-Pro-B Natriuret Pep Total Protein Albumin Arterial Blood Glucose Urine WBC (Auto) Urine Creatinine 12/04/19 12/04/19 12/05/19 13:26 18:43 00:19 WBC RBC Hgb Hct MCHC RDW MCV MCH Lymph % (Auto) [place] % (Auto) [place] # Eos # Lymph # (Auto) [place] # (Auto) Eos # (Auto) Seg Neutrophils % Seg Neuts % (Manual) Baso # (Auto) Lymphocytes % (Manual) Monocytes % (Manual) Eosinophils % (Manual) Basophils % (Manual) Seg Neutrophils # Seg Neutrophils # Man Lymphocytes # (Manual) Monocytes # (Manual) Eosinophils # (Manual) Nucleated RBC % Basophils # (Manual) PT INR APTT Heparin Anti-Xa Level ABG pH POC ABG pO2 ABG pO2 ABG HCO3 ABG O2 Saturation ABG Base Excess POC ABG pCO2 ABG Hemoglobin ABG Oxyhemoglobin ABG Chloride ABG Glucose Oxyhemoglobin Sodium Potassium Chloride Carbon Dioxide BUN Creatinine Glucose POC Glucose 185 H 156 H 150 H Lactic Acid Calcium Phosphorus Magnesium AST ALT Lactate Dehydrogenase Total Bilirubin Direct Bilirubin CK-MB (CK-2) C-Reactive Protein NT-Pro-B Natriuret Pep Total Protein Albumin Arterial Blood Glucose Urine WBC (Auto) Urine Creatinine 12/05/19 12/05/19 12/05/19 03:37 03:37 05:14 WBC 16.3 H RBC Hgb 11.4 L Hct MCHC RDW 15.6 H MCV MCH Lymph % (Auto) 9.9 L [place] % (Auto) 9.7 H [place] # 1.6 H Eos # Lymph # (Auto) [place] # (Auto) Eos # (Auto) Seg Neutrophils % 78.0 H Seg Neuts % (Manual) Baso # (Auto) Lymphocytes % (Manual) Monocytes % (Manual) Eosinophils % (Manual) Basophils % (Manual) Seg Neutrophils # 12.7 H Seg Neutrophils # Man Lymphocytes # (Manual) Monocytes # (Manual) Eosinophils # (Manual) Nucleated RBC % Basophils # (Manual) PT INR APTT Heparin Anti-Xa Level ABG pH POC ABG pO2 ABG pO2 ABG HCO3 ABG O2 Saturation ABG Base Excess POC ABG pCO2 ABG Hemoglobin ABG Oxyhemoglobin ABG Chloride ABG Glucose Oxyhemoglobin Sodium 146 H Potassium Chloride 107.2 H Carbon Dioxide BUN 27 H Creatinine 0.7 L Glucose 171 H POC Glucose 168 H Lactic Acid Calcium Phosphorus Magnesium AST ALT Lactate Dehydrogenase Total Bilirubin Direct Bilirubin CK-MB (CK-2) C-Reactive Protein NT-Pro-B Natriuret Pep Total Protein Albumin Arterial Blood Glucose Urine WBC (Auto) Urine Creatinine 12/05/19 12/05/19 12/05/19 12:31 18:10 23:58 WBC RBC Hgb Hct MCHC RDW MCV MCH Lymph % (Auto) [place] % (Auto) [place] # Eos # Lymph # (Auto) [place] # (Auto) Eos # (Auto) Seg Neutrophils % Seg Neuts % (Manual) Baso # (Auto) Lymphocytes % (Manual) Monocytes % (Manual) Eosinophils % (Manual) Basophils % (Manual) Seg Neutrophils # Seg Neutrophils # Man Lymphocytes # (Manual) Monocytes # (Manual) Eosinophils # (Manual) Nucleated RBC % Basophils # (Manual) PT INR APTT Heparin Anti-Xa Level ABG pH POC ABG pO2 ABG pO2 ABG HCO3 ABG O2 Saturation ABG Base Excess POC ABG pCO2 ABG Hemoglobin ABG Oxyhemoglobin ABG Chloride ABG Glucose Oxyhemoglobin Sodium Potassium Chloride Carbon Dioxide BUN Creatinine Glucose POC Glucose 159 H 198 H 115 H Lactic Acid Calcium Phosphorus Magnesium AST ALT Lactate Dehydrogenase Total Bilirubin Direct Bilirubin CK-MB (CK-2) C-Reactive Protein NT-Pro-B Natriuret Pep Total Protein Albumin Arterial Blood Glucose Urine WBC (Auto) Urine Creatinine 12/06/19 12/06/19 12/06/19 05:24 05:24 05:25 WBC 14.9 H RBC Hgb 10.8 L Hct 34.0 L MCHC RDW 15.6 H MCV MCH Lymph % (Auto) 10.7 L [place] % (Auto) 8.3 H [place] # 1.2 H Eos # Lymph # (Auto) [place] # (Auto) Eos # (Auto) Seg Neutrophils % 78.7 H Seg Neuts % (Manual) Baso # (Auto) Lymphocytes % (Manual) Monocytes % (Manual) Eosinophils % (Manual) Basophils % (Manual) Seg Neutrophils # 11.7 H Seg Neutrophils # Man Lymphocytes # (Manual) Monocytes # (Manual) Eosinophils # (Manual) Nucleated RBC % Basophils # (Manual) PT INR APTT Heparin Anti-Xa Level ABG pH POC ABG pO2 ABG pO2 ABG HCO3 ABG O2 Saturation ABG Base Excess POC ABG pCO2 ABG Hemoglobin ABG Oxyhemoglobin ABG Chloride ABG Glucose Oxyhemoglobin Sodium 148 H Potassium 5.1 H Chloride 107.6 H Carbon Dioxide BUN 27 H Creatinine 0.7 L Glucose 155 H POC Glucose 157 H Lactic Acid Calcium Phosphorus Magnesium AST ALT Lactate Dehydrogenase Total Bilirubin Direct Bilirubin CK-MB (CK-2) C-Reactive Protein NT-Pro-B Natriuret Pep Total Protein Albumin Arterial Blood Glucose Urine WBC (Auto) Urine Creatinine 12/07/19 12/07/19 12/07/19 00:13 05:34 11:33 WBC RBC Hgb Hct MCHC RDW MCV MCH Lymph % (Auto) [place] % (Auto) [place] # Eos # Lymph # (Auto) [place] # (Auto) Eos # (Auto) Seg Neutrophils % Seg Neuts % (Manual) Baso # (Auto) Lymphocytes % (Manual) Monocytes % (Manual) Eosinophils % (Manual) Basophils % (Manual) Seg Neutrophils # Seg Neutrophils # Man Lymphocytes # (Manual) Monocytes # (Manual) Eosinophils # (Manual) Nucleated RBC % Basophils # (Manual) PT INR APTT Heparin Anti-Xa Level ABG pH POC ABG pO2 ABG pO2 ABG HCO3 ABG O2 Saturation ABG Base Excess POC ABG pCO2 ABG Hemoglobin ABG Oxyhemoglobin ABG Chloride ABG Glucose Oxyhemoglobin Sodium Potassium Chloride Carbon Dioxide BUN Creatinine Glucose POC Glucose 142 H 111 H 169 H Lactic Acid Calcium Phosphorus Magnesium AST ALT Lactate Dehydrogenase Total Bilirubin Direct Bilirubin CK-MB (CK-2) C-Reactive Protein NT-Pro-B Natriuret Pep Total Protein Albumin Arterial Blood Glucose Urine WBC (Auto) Urine Creatinine 12/07/19 12/07/19 12/07/19 12:41 13:25 18:19 WBC 12.4 H RBC 3.53 L Hgb 10.2 L Hct 32.1 L MCHC RDW 15.3 H MCV MCH Lymph % (Auto) 10.6 L [place] % (Auto) 7.8 H [place] # 1.0 H Eos # Lymph # (Auto) [place] # (Auto) Eos # (Auto) Seg Neutrophils % 77.6 H Seg Neuts % (Manual) Baso # (Auto) Lymphocytes % (Manual) Monocytes % (Manual) Eosinophils % (Manual) Basophils % (Manual) Seg Neutrophils # 9.6 H Seg Neutrophils # Man Lymphocytes # (Manual) Monocytes # (Manual) Eosinophils # (Manual) Nucleated RBC % Basophils # (Manual) PT INR APTT Heparin Anti-Xa Level ABG pH POC ABG pO2 ABG pO2 ABG HCO3 ABG O2 Saturation ABG Base Excess POC ABG pCO2 ABG Hemoglobin ABG Oxyhemoglobin ABG Chloride ABG Glucose Oxyhemoglobin Sodium 149 H Potassium Chloride 108.4 H Carbon Dioxide BUN 26 H Creatinine 0.6 L Glucose 149 H POC Glucose 164 H Lactic Acid Calcium Phosphorus Magnesium 2.60 H AST 121 H ALT 145 H Lactate Dehydrogenase Total Bilirubin Direct Bilirubin CK-MB (CK-2) C-Reactive Protein NT-Pro-B Natriuret Pep Total Protein Albumin 2.6 L Arterial Blood Glucose Urine WBC (Auto) Urine Creatinine 12/07/19 12/08/19 12/08/19 22:25 00:02 03:55 WBC 13.3 H RBC 3.40 L Hgb 9.7 L Hct 30.8 L MCHC 31 L RDW 15.5 H MCV MCH Lymph % (Auto) [place] % (Auto) 8.1 H [place] # 1.1 H Eos # Lymph # (Auto) [place] # (Auto) Eos # (Auto) Seg Neutrophils % 73.0 H Seg Neuts % (Manual) Baso # (Auto) Lymphocytes % (Manual) Monocytes % (Manual) Eosinophils % (Manual) Basophils % (Manual) Seg Neutrophils # 9.7 H Seg Neutrophils # Man Lymphocytes # (Manual) Monocytes # (Manual) Eosinophils # (Manual) Nucleated RBC % Basophils # (Manual) PT INR APTT Heparin Anti-Xa Level 0.12 L ABG pH POC ABG pO2 ABG pO2 ABG HCO3 ABG O2 Saturation ABG Base Excess POC ABG pCO2 ABG Hemoglobin ABG Oxyhemoglobin ABG Chloride ABG Glucose Oxyhemoglobin Sodium Potassium Chloride Carbon Dioxide BUN Creatinine Glucose POC Glucose 151 H Lactic Acid Calcium Phosphorus Magnesium AST ALT Lactate Dehydrogenase Total Bilirubin Direct Bilirubin CK-MB (CK-2) C-Reactive Protein NT-Pro-B Natriuret Pep Total Protein Albumin Arterial Blood Glucose Urine WBC (Auto) Urine Creatinine 12/08/19 12/08/19 12/08/19 03:55 05:21 06:01 WBC RBC Hgb Hct MCHC RDW MCV MCH Lymph % (Auto) [place] % (Auto) [place] # Eos # Lymph # (Auto) [place] # (Auto) Eos # (Auto) Seg Neutrophils % Seg Neuts % (Manual) Baso # (Auto) Lymphocytes % (Manual) Monocytes % (Manual) Eosinophils % (Manual) Basophils % (Manual) Seg Neutrophils # Seg Neutrophils # Man Lymphocytes # (Manual) Monocytes # (Manual) Eosinophils # (Manual) Nucleated RBC % Basophils # (Manual) PT INR APTT Heparin Anti-Xa Level 0.20 L ABG pH POC ABG pO2 ABG pO2 ABG HCO3 ABG O2 Saturation ABG Base Excess POC ABG pCO2 ABG Hemoglobin ABG Oxyhemoglobin ABG Chloride ABG Glucose Oxyhemoglobin Sodium 149 H Potassium Chloride 108.0 H Carbon Dioxide BUN 28 H Creatinine 0.6 L Glucose 144 H POC Glucose 143 H Lactic Acid Calcium Phosphorus Magnesium AST 98 H ALT 145 H Lactate Dehydrogenase Total Bilirubin Direct Bilirubin CK-MB (CK-2) C-Reactive Protein NT-Pro-B Natriuret Pep Total Protein 6.0 L Albumin 2.4 L Arterial Blood Glucose Urine WBC (Auto) Urine Creatinine 12/08/19 12/08/19 12/08/19 12:08 18:11 23:53 WBC RBC Hgb Hct MCHC RDW MCV MCH Lymph % (Auto) [place] % (Auto) [place] # Eos # Lymph # (Auto) [place] # (Auto) Eos # (Auto) Seg Neutrophils % Seg Neuts % (Manual) Baso # (Auto) Lymphocytes % (Manual) Monocytes % (Manual) Eosinophils % (Manual) Basophils % (Manual) Seg Neutrophils # Seg Neutrophils # Man Lymphocytes # (Manual) Monocytes # (Manual) Eosinophils # (Manual) Nucleated RBC % Basophils # (Manual) PT INR APTT Heparin Anti-Xa Level ABG pH POC ABG pO2 ABG pO2 ABG HCO3 ABG O2 Saturation ABG Base Excess POC ABG pCO2 ABG Hemoglobin ABG Oxyhemoglobin ABG Chloride ABG Glucose Oxyhemoglobin Sodium Potassium Chloride Carbon Dioxide BUN Creatinine Glucose POC Glucose 172 H 122 H 162 H Lactic Acid Calcium Phosphorus Magnesium AST ALT Lactate Dehydrogenase Total Bilirubin Direct Bilirubin CK-MB (CK-2) C-Reactive Protein NT-Pro-B Natriuret Pep Total Protein Albumin Arterial Blood Glucose Urine WBC (Auto) Urine Creatinine 12/09/19 12/09/19 12/09/19 04:03 04:03 05:53 WBC RBC Hgb 9.1 L Hct 28.9 L MCHC RDW MCV MCH Lymph % (Auto) [place] % (Auto) [place] # Eos # Lymph # (Auto) [place] # (Auto) Eos # (Auto) Seg Neutrophils % Seg Neuts % (Manual) Baso # (Auto) Lymphocytes % (Manual) Monocytes % (Manual) Eosinophils % (Manual) Basophils % (Manual) Seg Neutrophils # Seg Neutrophils # Man Lymphocytes # (Manual) Monocytes # (Manual) Eosinophils # (Manual) Nucleated RBC % Basophils # (Manual) PT INR APTT Heparin Anti-Xa Level 0.15 L ABG pH POC ABG pO2 ABG pO2 ABG HCO3 ABG O2 Saturation ABG Base Excess POC ABG pCO2 ABG Hemoglobin ABG Oxyhemoglobin ABG Chloride ABG Glucose Oxyhemoglobin Sodium Potassium Chloride Carbon Dioxide BUN Creatinine Glucose POC Glucose 124 H Lactic Acid Calcium Phosphorus Magnesium AST ALT Lactate Dehydrogenase Total Bilirubin Direct Bilirubin CK-MB (CK-2) C-Reactive Protein NT-Pro-B Natriuret Pep Total Protein Albumin Arterial Blood Glucose Urine WBC (Auto) Urine Creatinine 12/09/19 12/09/19 12/10/19 09:43 12:41 00:13 WBC RBC Hgb Hct MCHC RDW MCV MCH Lymph % (Auto) [place] % (Auto) [place] # Eos # Lymph # (Auto) [place] # (Auto) Eos # (Auto) Seg Neutrophils % Seg Neuts % (Manual) Baso # (Auto) Lymphocytes % (Manual) Monocytes % (Manual) Eosinophils % (Manual) Basophils % (Manual) Seg Neutrophils # Seg Neutrophils # Man Lymphocytes # (Manual) Monocytes # (Manual) Eosinophils # (Manual) Nucleated RBC % Basophils # (Manual) PT INR APTT Heparin Anti-Xa Level ABG pH POC ABG pO2 ABG pO2 ABG HCO3 ABG O2 Saturation ABG Base Excess POC ABG pCO2 ABG Hemoglobin ABG Oxyhemoglobin ABG Chloride ABG Glucose Oxyhemoglobin Sodium Potassium Chloride Carbon Dioxide BUN 25 H Creatinine 0.6 L Glucose 131 H POC Glucose 109 H 120 H Lactic Acid Calcium Phosphorus Magnesium AST ALT Lactate Dehydrogenase Total Bilirubin Direct Bilirubin CK-MB (CK-2) C-Reactive Protein NT-Pro-B Natriuret Pep Total Protein Albumin Arterial Blood Glucose Urine WBC (Auto) Urine Creatinine 12/10/19 12/10/19 12/10/19 04:14 04:14 12:00 WBC 13.3 H RBC 3.34 L Hgb 9.6 L Hct 30.4 L MCHC RDW 15.4 H MCV MCH Lymph % (Auto) [place] % (Auto) [place] # Eos # Lymph # (Auto) [place] # (Auto) Eos # (Auto) Seg Neutrophils % Seg Neuts % (Manual) 75.0 H Baso # (Auto) Lymphocytes % (Manual) 13.0 L Monocytes % (Manual) 8.0 H Eosinophils % (Manual) Basophils % (Manual) 2.0 H Seg Neutrophils # Seg Neutrophils # Man 10.0 H Lymphocytes # (Manual) Monocytes # (Manual) 1.1 H Eosinophils # (Manual) Nucleated RBC % Basophils # (Manual) 0.3 H PT INR APTT Heparin Anti-Xa Level ABG pH POC ABG pO2 ABG pO2 ABG HCO3 ABG O2 Saturation ABG Base Excess POC ABG pCO2 ABG Hemoglobin ABG Oxyhemoglobin ABG Chloride ABG Glucose Oxyhemoglobin Sodium 147 H Potassium Chloride 108.3 H Carbon Dioxide BUN 21 H Creatinine 0.6 L Glucose 104 H POC Glucose 133 H Lactic Acid Calcium Phosphorus Magnesium AST ALT Lactate Dehydrogenase Total Bilirubin Direct Bilirubin CK-MB (CK-2) C-Reactive Protein NT-Pro-B Natriuret Pep Total Protein Albumin Arterial Blood Glucose Urine WBC (Auto) Urine Creatinine 12/10/19 12/10/19 12/11/19 18:44 21:20 00:08 WBC 14.9 H RBC 3.36 L Hgb 9.6 L Hct 30.5 L MCHC RDW 15.4 H MCV MCH Lymph % (Auto) [place] % (Auto) [place] # Eos # Lymph # (Auto) [place] # (Auto) Eos # (Auto) Seg Neutrophils % Seg Neuts % (Manual) Baso # (Auto) Lymphocytes % (Manual) Monocytes % (Manual) Eosinophils % (Manual) Basophils % (Manual) Seg Neutrophils # Seg Neutrophils # Man Lymphocytes # (Manual) Monocytes # (Manual) Eosinophils # (Manual) Nucleated RBC % Basophils # (Manual) PT INR APTT Heparin Anti-Xa Level ABG pH POC ABG pO2 ABG pO2 ABG HCO3 ABG O2 Saturation ABG Base Excess POC ABG pCO2 ABG Hemoglobin ABG Oxyhemoglobin ABG Chloride ABG Glucose Oxyhemoglobin Sodium Potassium Chloride Carbon Dioxide BUN Creatinine Glucose POC Glucose 119 H 134 H Lactic Acid Calcium Phosphorus Magnesium AST ALT Lactate Dehydrogenase Total Bilirubin Direct Bilirubin CK-MB (CK-2) C-Reactive Protein NT-Pro-B Natriuret Pep Total Protein Albumin Arterial Blood Glucose Urine WBC (Auto) Urine Creatinine 12/11/19 12/11/19 12/11/19 03:54 07:28 08:36 WBC 11.9 H RBC 3.25 L Hgb 9.6 L Hct 29.2 L MCHC RDW 15.7 H MCV MCH Lymph % (Auto) [place] % (Auto) [place] # Eos # Lymph # (Auto) [place] # (Auto) Eos # (Auto) Seg Neutrophils % Seg Neuts % (Manual) Baso # (Auto) Lymphocytes % (Manual) Monocytes % (Manual) Eosinophils % (Manual) Basophils % (Manual) Seg Neutrophils # Seg Neutrophils # Man Lymphocytes # (Manual) Monocytes # (Manual) Eosinophils # (Manual) Nucleated RBC % Basophils # (Manual) PT INR APTT Heparin Anti-Xa Level 0.10 L 0.16 L ABG pH POC ABG pO2 ABG pO2 ABG HCO3 ABG O2 Saturation ABG Base Excess POC ABG pCO2 ABG Hemoglobin ABG Oxyhemoglobin ABG Chloride ABG Glucose Oxyhemoglobin Sodium Potassium Chloride Carbon Dioxide BUN Creatinine Glucose POC Glucose Lactic Acid Calcium Phosphorus Magnesium AST ALT Lactate Dehydrogenase Total Bilirubin Direct Bilirubin CK-MB (CK-2) C-Reactive Protein NT-Pro-B Natriuret Pep Total Protein Albumin Arterial Blood Glucose Urine WBC (Auto) Urine Creatinine 12/11/19 12/11/19 12/11/19 08:36 11:45 17:15 WBC RBC Hgb Hct MCHC RDW MCV MCH Lymph % (Auto) [place] % (Auto) [place] # Eos # Lymph # (Auto) [place] # (Auto) Eos # (Auto) Seg Neutrophils % Seg Neuts % (Manual) Baso # (Auto) Lymphocytes % (Manual) Monocytes % (Manual) Eosinophils % (Manual) Basophils % (Manual) Seg Neutrophils # Seg Neutrophils # Man Lymphocytes # (Manual) Monocytes # (Manual) Eosinophils # (Manual) Nucleated RBC % Basophils # (Manual) PT INR APTT Heparin Anti-Xa Level ABG pH POC ABG pO2 ABG pO2 ABG HCO3 ABG O2 Saturation ABG Base Excess POC ABG pCO2 ABG Hemoglobin ABG Oxyhemoglobin ABG Chloride ABG Glucose Oxyhemoglobin Sodium Potassium Chloride Carbon Dioxide BUN Creatinine 0.5 L Glucose 128 H POC Glucose 136 H 109 H Lactic Acid Calcium Phosphorus Magnesium AST ALT Lactate Dehydrogenase Total Bilirubin Direct Bilirubin CK-MB (CK-2) C-Reactive Protein NT-Pro-B Natriuret Pep Total Protein Albumin Arterial Blood Glucose Urine WBC (Auto) Urine Creatinine 12/12/19 12/12/19 12/12/19 00:03 05:53 05:53 WBC RBC Hgb 8.8 L Hct 27.6 L MCHC RDW MCV MCH Lymph % (Auto) [place] % (Auto) [place] # Eos # Lymph # (Auto) [place] # (Auto) Eos # (Auto) Seg Neutrophils % Seg Neuts % (Manual) Baso # (Auto) Lymphocytes % (Manual) Monocytes % (Manual) Eosinophils % (Manual) Basophils % (Manual) Seg Neutrophils # Seg Neutrophils # Man Lymphocytes # (Manual) Monocytes # (Manual) Eosinophils # (Manual) Nucleated RBC % Basophils # (Manual) PT INR APTT Heparin Anti-Xa Level 0.22 L ABG pH POC ABG pO2 ABG pO2 ABG HCO3 ABG O2 Saturation ABG Base Excess POC ABG pCO2 ABG Hemoglobin ABG Oxyhemoglobin ABG Chloride ABG Glucose Oxyhemoglobin Sodium Potassium Chloride Carbon Dioxide BUN Creatinine Glucose POC Glucose 116 H Lactic Acid Calcium Phosphorus Magnesium AST ALT Lactate Dehydrogenase Total Bilirubin Direct Bilirubin CK-MB (CK-2) C-Reactive Protein NT-Pro-B Natriuret Pep Total Protein Albumin Arterial Blood Glucose Urine WBC (Auto) Urine Creatinine 12/12/19 12/12/19 12/12/19 09:38 12:18 17:44 WBC RBC Hgb Hct MCHC RDW MCV MCH Lymph % (Auto) [place] % (Auto) [place] # Eos # Lymph # (Auto) [place] # (Auto) Eos # (Auto) Seg Neutrophils % Seg Neuts % (Manual) Baso # (Auto) Lymphocytes % (Manual) Monocytes % (Manual) Eosinophils % (Manual) Basophils % (Manual) Seg Neutrophils # Seg Neutrophils # Man Lymphocytes # (Manual) Monocytes # (Manual) Eosinophils # (Manual) Nucleated RBC % Basophils # (Manual) PT INR APTT Heparin Anti-Xa Level ABG pH POC ABG pO2 ABG pO2 ABG HCO3 ABG O2 Saturation ABG Base Excess POC ABG pCO2 ABG Hemoglobin ABG Oxyhemoglobin ABG Chloride ABG Glucose Oxyhemoglobin Sodium Potassium Chloride Carbon Dioxide BUN Creatinine Glucose POC Glucose 115 H 146 H 146 H Lactic Acid Calcium Phosphorus Magnesium AST ALT Lactate Dehydrogenase Total Bilirubin Direct Bilirubin CK-MB (CK-2) C-Reactive Protein NT-Pro-B Natriuret Pep Total Protein Albumin Arterial Blood Glucose Urine WBC (Auto) Urine Creatinine 12/12/19 12/13/19 12/13/19 23:33 05:32 05:32 WBC 13.1 H RBC 3.27 L Hgb 9.5 L Hct 29.3 L MCHC RDW 15.6 H MCV MCH Lymph % (Auto) [place] % (Auto) [place] # Eos # Lymph # (Auto) [place] # (Auto) Eos # (Auto) Seg Neutrophils % Seg Neuts % (Manual) 74.0 H Baso # (Auto) Lymphocytes % (Manual) 8.0 L Monocytes % (Manual) 9.0 H Eosinophils % (Manual) 5.0 H Basophils % (Manual) Seg Neutrophils # Seg Neutrophils # Man 9.7 H Lymphocytes # (Manual) 1.0 L Monocytes # (Manual) 1.2 H Eosinophils # (Manual) 0.7 H Nucleated RBC % Basophils # (Manual) PT INR APTT Heparin Anti-Xa Level 0.20 L ABG pH POC ABG pO2 ABG pO2 ABG HCO3 ABG O2 Saturation ABG Base Excess POC ABG pCO2 ABG Hemoglobin ABG Oxyhemoglobin ABG Chloride ABG Glucose Oxyhemoglobin Sodium Potassium Chloride Carbon Dioxide BUN Creatinine Glucose POC Glucose 126 H Lactic Acid Calcium Phosphorus Magnesium AST ALT Lactate Dehydrogenase Total Bilirubin Direct Bilirubin CK-MB (CK-2) C-Reactive Protein NT-Pro-B Natriuret Pep Total Protein Albumin Arterial Blood Glucose Urine WBC (Auto) Urine Creatinine 12/13/19 12/13/19 12/13/19 05:32 05:46 11:57 WBC RBC Hgb Hct MCHC RDW MCV MCH Lymph % (Auto) [place] % (Auto) [place] # Eos # Lymph # (Auto) [place] # (Auto) Eos # (Auto) Seg Neutrophils % Seg Neuts % (Manual) Baso # (Auto) Lymphocytes % (Manual) Monocytes % (Manual) Eosinophils % (Manual) Basophils % (Manual) Seg Neutrophils # Seg Neutrophils # Man Lymphocytes # (Manual) Monocytes # (Manual) Eosinophils # (Manual) Nucleated RBC % Basophils # (Manual) PT INR APTT Heparin Anti-Xa Level ABG pH POC ABG pO2 ABG pO2 ABG HCO3 ABG O2 Saturation ABG Base Excess POC ABG pCO2 ABG Hemoglobin ABG Oxyhemoglobin ABG Chloride ABG Glucose Oxyhemoglobin Sodium Potassium Chloride Carbon Dioxide 31 H BUN Creatinine 0.6 L Glucose 114 H POC Glucose 118 H 133 H Lactic Acid Calcium Phosphorus Magnesium AST ALT Lactate Dehydrogenase Total Bilirubin Direct Bilirubin CK-MB (CK-2) C-Reactive Protein NT-Pro-B Natriuret Pep Total Protein Albumin Arterial Blood Glucose Urine WBC (Auto) Urine Creatinine 12/13/19 12/13/19 12/14/19 17:44 23:46 05:32 WBC RBC Hgb Hct MCHC RDW MCV MCH Lymph % (Auto) [place] % (Auto) [place] # Eos # Lymph # (Auto) [place] # (Auto) Eos # (Auto) Seg Neutrophils % Seg Neuts % (Manual) Baso # (Auto) Lymphocytes % (Manual) Monocytes % (Manual) Eosinophils % (Manual) Basophils % (Manual) Seg Neutrophils # Seg Neutrophils # Man Lymphocytes # (Manual) Monocytes # (Manual) Eosinophils # (Manual) Nucleated RBC % Basophils # (Manual) PT INR APTT Heparin Anti-Xa Level ABG pH POC ABG pO2 ABG pO2 ABG HCO3 ABG O2 Saturation ABG Base Excess POC ABG pCO2 ABG Hemoglobin ABG Oxyhemoglobin ABG Chloride ABG Glucose Oxyhemoglobin Sodium Potassium Chloride Carbon Dioxide BUN Creatinine Glucose POC Glucose 161 H 126 H 139 H Lactic Acid Calcium Phosphorus Magnesium AST ALT Lactate Dehydrogenase Total Bilirubin Direct Bilirubin CK-MB (CK-2) C-Reactive Protein NT-Pro-B Natriuret Pep Total Protein Albumin Arterial Blood Glucose Urine WBC (Auto) Urine Creatinine 12/14/19 12/14/19 12/14/19 06:03 06:03 09:37 WBC RBC Hgb 9.6 L Hct 30.4 L MCHC RDW MCV MCH Lymph % (Auto) [place] % (Auto) [place] # Eos # Lymph # (Auto) [place] # (Auto) Eos # (Auto) Seg Neutrophils % Seg Neuts % (Manual) Baso # (Auto) Lymphocytes % (Manual) Monocytes % (Manual) Eosinophils % (Manual) Basophils % (Manual) Seg Neutrophils # Seg Neutrophils # Man Lymphocytes # (Manual) Monocytes # (Manual) Eosinophils # (Manual) Nucleated RBC % Basophils # (Manual) PT INR APTT Heparin Anti-Xa Level 0.24 L ABG pH POC ABG pO2 ABG pO2 ABG HCO3 ABG O2 Saturation ABG Base Excess POC ABG pCO2 ABG Hemoglobin ABG Oxyhemoglobin ABG Chloride ABG Glucose Oxyhemoglobin Sodium Potassium Chloride Carbon Dioxide BUN Creatinine 0.6 L Glucose 162 H POC Glucose Lactic Acid Calcium Phosphorus Magnesium AST 71 H ALT 118 H Lactate Dehydrogenase Total Bilirubin Direct Bilirubin CK-MB (CK-2) C-Reactive Protein NT-Pro-B Natriuret Pep Total Protein 6.2 L Albumin 2.3 L Arterial Blood Glucose Urine WBC (Auto) Urine Creatinine 12/14/19 12/14/19 12/15/19 12:06 18:18 00:19 WBC RBC Hgb Hct MCHC RDW MCV MCH Lymph % (Auto) [place] % (Auto) [place] # Eos # Lymph # (Auto) [place] # (Auto) Eos # (Auto) Seg Neutrophils % Seg Neuts % (Manual) Baso # (Auto) Lymphocytes % (Manual) Monocytes % (Manual) Eosinophils % (Manual) Basophils % (Manual) Seg Neutrophils # Seg Neutrophils # Man Lymphocytes # (Manual) Monocytes # (Manual) Eosinophils # (Manual) Nucleated RBC % Basophils # (Manual) PT INR APTT Heparin Anti-Xa Level ABG pH POC ABG pO2 ABG pO2 ABG HCO3 ABG O2 Saturation ABG Base Excess POC ABG pCO2 ABG Hemoglobin ABG Oxyhemoglobin ABG Chloride ABG Glucose Oxyhemoglobin Sodium Potassium Chloride Carbon Dioxide BUN Creatinine Glucose POC Glucose 147 H 166 H 123 H Lactic Acid Calcium Phosphorus Magnesium AST ALT Lactate Dehydrogenase Total Bilirubin Direct Bilirubin CK-MB (CK-2) C-Reactive Protein NT-Pro-B Natriuret Pep Total Protein Albumin Arterial Blood Glucose Urine WBC (Auto) Urine Creatinine 12/15/19 12/15/19 12/15/19 05:28 05:29 05:29 WBC 14.9 H RBC 3.19 L Hgb 9.1 L Hct 28.7 L MCHC RDW 16.0 H MCV MCH Lymph % (Auto) [place] % (Auto) [place] # Eos # Lymph # (Auto) [place] # (Auto) Eos # (Auto) Seg Neutrophils % Seg Neuts % (Manual) Baso # (Auto) Lymphocytes % (Manual) Monocytes % (Manual) Eosinophils % (Manual) Basophils % (Manual) Seg Neutrophils # Seg Neutrophils # Man Lymphocytes # (Manual) Monocytes # (Manual) Eosinophils # (Manual) Nucleated RBC % Basophils # (Manual) PT INR APTT Heparin Anti-Xa Level 0.19 L ABG pH POC ABG pO2 ABG pO2 ABG HCO3 ABG O2 Saturation ABG Base Excess POC ABG pCO2 ABG Hemoglobin ABG Oxyhemoglobin ABG Chloride ABG Glucose Oxyhemoglobin Sodium Potassium Chloride Carbon Dioxide BUN Creatinine 0.6 L Glucose 110 H POC Glucose Lactic Acid Calcium Phosphorus Magnesium AST ALT Lactate Dehydrogenase Total Bilirubin Direct Bilirubin CK-MB (CK-2) C-Reactive Protein NT-Pro-B Natriuret Pep Total Protein Albumin Arterial Blood Glucose Urine WBC (Auto) Urine Creatinine 12/15/19 12/15/19 12/15/19 05:53 11:50 17:26 WBC RBC Hgb Hct MCHC RDW MCV MCH Lymph % (Auto) [place] % (Auto) [place] # Eos # Lymph # (Auto) [place] # (Auto) Eos # (Auto) Seg Neutrophils % Seg Neuts % (Manual) Baso # (Auto) Lymphocytes % (Manual) Monocytes % (Manual) Eosinophils % (Manual) Basophils % (Manual) Seg Neutrophils # Seg Neutrophils # Man Lymphocytes # (Manual) Monocytes # (Manual) Eosinophils # (Manual) Nucleated RBC % Basophils # (Manual) PT INR APTT Heparin Anti-Xa Level ABG pH POC ABG pO2 ABG pO2 ABG HCO3 ABG O2 Saturation ABG Base Excess POC ABG pCO2 ABG Hemoglobin ABG Oxyhemoglobin ABG Chloride ABG Glucose Oxyhemoglobin Sodium Potassium Chloride Carbon Dioxide BUN Creatinine Glucose POC Glucose 119 H 132 H 128 H Lactic Acid Calcium Phosphorus Magnesium AST ALT Lactate Dehydrogenase Total Bilirubin Direct Bilirubin CK-MB (CK-2) C-Reactive Protein NT-Pro-B Natriuret Pep Total Protein Albumin Arterial Blood Glucose Urine WBC (Auto) Urine Creatinine 12/15/19 12/16/19 12/16/19 23:11 05:30 05:46 WBC RBC Hgb 8.8 L Hct 27.9 L MCHC RDW MCV MCH Lymph % (Auto) [place] % (Auto) [place] # Eos # Lymph # (Auto) [place] # (Auto) Eos # (Auto) Seg Neutrophils % Seg Neuts % (Manual) Baso # (Auto) Lymphocytes % (Manual) Monocytes % (Manual) Eosinophils % (Manual) Basophils % (Manual) Seg Neutrophils # Seg Neutrophils # Man Lymphocytes # (Manual) Monocytes # (Manual) Eosinophils # (Manual) Nucleated RBC % Basophils # (Manual) PT INR APTT Heparin Anti-Xa Level ABG pH POC ABG pO2 ABG pO2 ABG HCO3 ABG O2 Saturation ABG Base Excess POC ABG pCO2 ABG Hemoglobin ABG Oxyhemoglobin ABG Chloride ABG Glucose Oxyhemoglobin Sodium Potassium Chloride Carbon Dioxide BUN Creatinine Glucose POC Glucose 150 H 134 H Lactic Acid Calcium Phosphorus Magnesium AST ALT Lactate Dehydrogenase Total Bilirubin Direct Bilirubin CK-MB (CK-2) C-Reactive Protein NT-Pro-B Natriuret Pep Total Protein Albumin Arterial Blood Glucose Urine WBC (Auto) Urine Creatinine 12/16/19 12/16/19 12/16/19 05:46 05:46 11:44 WBC RBC Hgb Hct MCHC RDW MCV MCH Lymph % (Auto) [place] % (Auto) [place] # Eos # Lymph # (Auto) [place] # (Auto) Eos # (Auto) Seg Neutrophils % Seg Neuts % (Manual) Baso # (Auto) Lymphocytes % (Manual) Monocytes % (Manual) Eosinophils % (Manual) Basophils % (Manual) Seg Neutrophils # Seg Neutrophils # Man Lymphocytes # (Manual) Monocytes # (Manual) Eosinophils # (Manual) Nucleated RBC % Basophils # (Manual) PT INR APTT Heparin Anti-Xa Level 0.20 L ABG pH POC ABG pO2 ABG pO2 ABG HCO3 ABG O2 Saturation ABG Base Excess POC ABG pCO2 ABG Hemoglobin ABG Oxyhemoglobin ABG Chloride ABG Glucose Oxyhemoglobin Sodium Potassium Chloride Carbon Dioxide 31 H BUN Creatinine 0.5 L Glucose 147 H POC Glucose 164 H Lactic Acid Calcium Phosphorus Magnesium AST ALT Lactate Dehydrogenase Total Bilirubin Direct Bilirubin CK-MB (CK-2) C-Reactive Protein NT-Pro-B Natriuret Pep Total Protein Albumin Arterial Blood Glucose Urine WBC (Auto) Urine Creatinine 12/16/19 12/16/19 12/17/19 17:17 23:49 05:30 WBC 13.9 H RBC 3.27 L Hgb 9.4 L Hct 29.2 L MCHC RDW 16.0 H MCV MCH Lymph % (Auto) [place] % (Auto) 8.8 H [place] # Eos # Lymph # (Auto) [place] # (Auto) 1.2 H Eos # (Auto) 0.5 H Seg Neutrophils % 70.5 H Seg Neuts % (Manual) Baso # (Auto) 0.2 H Lymphocytes % (Manual) Monocytes % (Manual) Eosinophils % (Manual) Basophils % (Manual) Seg Neutrophils # 9.8 H Seg Neutrophils # Man Lymphocytes # (Manual) Monocytes # (Manual) Eosinophils # (Manual) Nucleated RBC % Basophils # (Manual) PT INR APTT Heparin Anti-Xa Level ABG pH POC ABG pO2 ABG pO2 ABG HCO3 ABG O2 Saturation ABG Base Excess POC ABG pCO2 ABG Hemoglobin ABG Oxyhemoglobin ABG Chloride ABG Glucose Oxyhemoglobin Sodium Potassium Chloride Carbon Dioxide BUN Creatinine Glucose POC Glucose 162 H 144 H Lactic Acid Calcium Phosphorus Magnesium AST ALT Lactate Dehydrogenase Total Bilirubin Direct Bilirubin CK-MB (CK-2) C-Reactive Protein NT-Pro-B Natriuret Pep Total Protein Albumin Arterial Blood Glucose Urine WBC (Auto) Urine Creatinine 12/17/19 12/17/19 12/17/19 05:30 06:06 11:50 WBC RBC Hgb Hct MCHC RDW MCV MCH Lymph % (Auto) [place] % (Auto) [place] # Eos # Lymph # (Auto) [place] # (Auto) Eos # (Auto) Seg Neutrophils % Seg Neuts % (Manual) Baso # (Auto) Lymphocytes % (Manual) Monocytes % (Manual) Eosinophils % (Manual) Basophils % (Manual) Seg Neutrophils # Seg Neutrophils # Man Lymphocytes # (Manual) Monocytes # (Manual) Eosinophils # (Manual) Nucleated RBC % Basophils # (Manual) PT INR APTT Heparin Anti-Xa Level ABG pH POC ABG pO2 ABG pO2 ABG HCO3 ABG O2 Saturation ABG Base Excess POC ABG pCO2 ABG Hemoglobin ABG Oxyhemoglobin ABG Chloride ABG Glucose Oxyhemoglobin Sodium Potassium Chloride 97.4 L Carbon Dioxide 32 H BUN Creatinine 0.5 L Glucose 135 H POC Glucose 151 H 140 H Lactic Acid Calcium Phosphorus Magnesium AST ALT Lactate Dehydrogenase Total Bilirubin Direct Bilirubin CK-MB (CK-2) C-Reactive Protein NT-Pro-B Natriuret Pep Total Protein Albumin Arterial Blood Glucose Urine WBC (Auto) Urine Creatinine 12/17/19 12/17/19 12/18/19 17:50 23:46 05:17 WBC RBC Hgb 8.8 L Hct 28.0 L MCHC RDW MCV MCH Lymph % (Auto) [place] % (Auto) [place] # Eos # Lymph # (Auto) [place] # (Auto) Eos # (Auto) Seg Neutrophils % Seg Neuts % (Manual) Baso # (Auto) Lymphocytes % (Manual) Monocytes % (Manual) Eosinophils % (Manual) Basophils % (Manual) Seg Neutrophils # Seg Neutrophils # Man Lymphocytes # (Manual) Monocytes # (Manual) Eosinophils # (Manual) Nucleated RBC % Basophils # (Manual) PT INR APTT Heparin Anti-Xa Level ABG pH POC ABG pO2 ABG pO2 ABG HCO3 ABG O2 Saturation ABG Base Excess POC ABG pCO2 ABG Hemoglobin ABG Oxyhemoglobin ABG Chloride ABG Glucose Oxyhemoglobin Sodium Potassium Chloride Carbon Dioxide BUN Creatinine Glucose POC Glucose 158 H 150 H Lactic Acid Calcium Phosphorus Magnesium AST ALT Lactate Dehydrogenase Total Bilirubin Direct Bilirubin CK-MB (CK-2) C-Reactive Protein NT-Pro-B Natriuret Pep Total Protein Albumin Arterial Blood Glucose Urine WBC (Auto) Urine Creatinine 12/18/19 12/18/19 12/18/19 05:17 05:49 11:12 WBC RBC Hgb Hct MCHC RDW MCV MCH Lymph % (Auto) [place] % (Auto) [place] # Eos # Lymph # (Auto) [place] # (Auto) Eos # (Auto) Seg Neutrophils % Seg Neuts % (Manual) Baso # (Auto) Lymphocytes % (Manual) Monocytes % (Manual) Eosinophils % (Manual) Basophils % (Manual) Seg Neutrophils # Seg Neutrophils # Man Lymphocytes # (Manual) Monocytes # (Manual) Eosinophils # (Manual) Nucleated RBC % Basophils # (Manual) PT INR APTT Heparin Anti-Xa Level 0.16 L ABG pH POC ABG pO2 ABG pO2 ABG HCO3 ABG O2 Saturation ABG Base Excess POC ABG pCO2 ABG Hemoglobin ABG Oxyhemoglobin ABG Chloride ABG Glucose Oxyhemoglobin Sodium Potassium Chloride Carbon Dioxide BUN Creatinine Glucose POC Glucose 127 H 191 H Lactic Acid Calcium Phosphorus Magnesium AST ALT Lactate Dehydrogenase Total Bilirubin Direct Bilirubin CK-MB (CK-2) C-Reactive Protein NT-Pro-B Natriuret Pep Total Protein Albumin Arterial Blood Glucose Urine WBC (Auto) Urine Creatinine 12/18/19 12/18/19 12/19/19 17:03 20:16 00:08 WBC RBC Hgb Hct MCHC RDW MCV MCH Lymph % (Auto) [place] % (Auto) [place] # Eos # Lymph # (Auto) [place] # (Auto) Eos # (Auto) Seg Neutrophils % Seg Neuts % (Manual) Baso # (Auto) Lymphocytes % (Manual) Monocytes % (Manual) Eosinophils % (Manual) Basophils % (Manual) Seg Neutrophils # Seg Neutrophils # Man Lymphocytes # (Manual) Monocytes # (Manual) Eosinophils # (Manual) Nucleated RBC % Basophils # (Manual) PT INR APTT Heparin Anti-Xa Level ABG pH POC ABG pO2 ABG pO2 ABG HCO3 ABG O2 Saturation ABG Base Excess POC ABG pCO2 ABG Hemoglobin ABG Oxyhemoglobin ABG Chloride ABG Glucose Oxyhemoglobin Sodium Potassium Chloride Carbon Dioxide BUN Creatinine Glucose POC Glucose 133 H 128 H 129 H Lactic Acid Calcium Phosphorus Magnesium AST ALT Lactate Dehydrogenase Total Bilirubin Direct Bilirubin CK-MB (CK-2) C-Reactive Protein NT-Pro-B Natriuret Pep Total Protein Albumin Arterial Blood Glucose Urine WBC (Auto) Urine Creatinine 12/19/19 12/19/19 12/19/19 04:45 04:45 05:35 WBC RBC Hgb Hct MCHC RDW MCV MCH Lymph % (Auto) [place] % (Auto) [place] # Eos # Lymph # (Auto) [place] # (Auto) Eos # (Auto) Seg Neutrophils % Seg Neuts % (Manual) Baso # (Auto) Lymphocytes % (Manual) Monocytes % (Manual) Eosinophils % (Manual) Basophils % (Manual) Seg Neutrophils # Seg Neutrophils # Man Lymphocytes # (Manual) Monocytes # (Manual) Eosinophils # (Manual) Nucleated RBC % Basophils # (Manual) PT INR APTT Heparin Anti-Xa Level 0.17 L ABG pH POC ABG pO2 ABG pO2 ABG HCO3 ABG O2 Saturation ABG Base Excess POC ABG pCO2 ABG Hemoglobin ABG Oxyhemoglobin ABG Chloride ABG Glucose Oxyhemoglobin Sodium Potassium Chloride Carbon Dioxide BUN Creatinine Glucose POC Glucose 120 H Lactic Acid Calcium Phosphorus Magnesium AST ALT Lactate Dehydrogenase 228 H Total Bilirubin Direct Bilirubin CK-MB (CK-2) C-Reactive Protein NT-Pro-B Natriuret Pep Total Protein Albumin Arterial Blood Glucose Urine WBC (Auto) Urine Creatinine 12/19/19 12/19/19 12/19/19 09:20 11:32 11:32 WBC 14.6 H RBC 3.08 L Hgb 9.0 L Hct 26.8 L MCHC RDW 15.9 H MCV MCH Lymph % (Auto) [place] % (Auto) [place] # Eos # Lymph # (Auto) [place] # (Auto) Eos # (Auto) Seg Neutrophils % Seg Neuts % (Manual) 82.0 H Baso # (Auto) Lymphocytes % (Manual) 10.0 L Monocytes % (Manual) Eosinophils % (Manual) Basophils % (Manual) Seg Neutrophils # Seg Neutrophils # Man 12.0 H Lymphocytes # (Manual) Monocytes # (Manual) 0.9 H Eosinophils # (Manual) Nucleated RBC % 1.0 H Basophils # (Manual) PT INR APTT Heparin Anti-Xa Level ABG pH 7.451 H POC ABG pO2 ABG pO2 62.6 L ABG HCO3 33.2 H ABG O2 Saturation 93.8 L ABG Base Excess 8.3 H POC ABG pCO2 ABG Hemoglobin 8.3 L ABG Oxyhemoglobin ABG Chloride ABG Glucose Oxyhemoglobin 91.9 L Sodium Potassium Chloride 95.0 L Carbon Dioxide 33 H BUN 22 H Creatinine 0.6 L Glucose 150 H POC Glucose Lactic Acid Calcium Phosphorus Magnesium AST ALT Lactate Dehydrogenase Total Bilirubin Direct Bilirubin CK-MB (CK-2) C-Reactive Protein NT-Pro-B Natriuret Pep Total Protein 6.2 L Albumin 2.4 L Arterial Blood Glucose Urine WBC (Auto) Urine Creatinine 12/19/19 12/19/19 12/20/19 11:56 18:17 00:09 WBC RBC Hgb Hct MCHC RDW MCV MCH Lymph % (Auto) [place] % (Auto) [place] # Eos # Lymph # (Auto) [place] # (Auto) Eos # (Auto) Seg Neutrophils % Seg Neuts % (Manual) Baso # (Auto) Lymphocytes % (Manual) Monocytes % (Manual) Eosinophils % (Manual) Basophils % (Manual) Seg Neutrophils # Seg Neutrophils # Man Lymphocytes # (Manual) Monocytes # (Manual) Eosinophils # (Manual) Nucleated RBC % Basophils # (Manual) PT INR APTT Heparin Anti-Xa Level ABG pH POC ABG pO2 ABG pO2 ABG HCO3 ABG O2 Saturation ABG Base Excess POC ABG pCO2 ABG Hemoglobin ABG Oxyhemoglobin ABG Chloride ABG Glucose Oxyhemoglobin Sodium Potassium Chloride Carbon Dioxide BUN Creatinine Glucose POC Glucose 156 H 156 H 155 H Lactic Acid Calcium Phosphorus Magnesium AST ALT Lactate Dehydrogenase Total Bilirubin Direct Bilirubin CK-MB (CK-2) C-Reactive Protein NT-Pro-B Natriuret Pep Total Protein Albumin Arterial Blood Glucose Urine WBC (Auto) Urine Creatinine 12/20/19 12/20/19 12/20/19 05:26 06:02 18:17 WBC RBC Hgb Hct MCHC RDW MCV MCH Lymph % (Auto) [place] % (Auto) [place] # Eos # Lymph # (Auto) [place] # (Auto) Eos # (Auto) Seg Neutrophils % Seg Neuts % (Manual) Baso # (Auto) Lymphocytes % (Manual) Monocytes % (Manual) Eosinophils % (Manual) Basophils % (Manual) Seg Neutrophils # Seg Neutrophils # Man Lymphocytes # (Manual) Monocytes # (Manual) Eosinophils # (Manual) Nucleated RBC % Basophils # (Manual) PT INR APTT Heparin Anti-Xa Level 0.19 L ABG pH POC ABG pO2 ABG pO2 ABG HCO3 ABG O2 Saturation ABG Base Excess POC ABG pCO2 ABG Hemoglobin ABG Oxyhemoglobin ABG Chloride ABG Glucose Oxyhemoglobin Sodium Potassium Chloride Carbon Dioxide BUN Creatinine Glucose POC Glucose 137 H 128 H Lactic Acid Calcium Phosphorus Magnesium AST ALT Lactate Dehydrogenase Total Bilirubin Direct Bilirubin CK-MB (CK-2) C-Reactive Protein NT-Pro-B Natriuret Pep Total Protein Albumin Arterial Blood Glucose Urine WBC (Auto) Urine Creatinine 12/20/19 12/21/19 12/21/19 23:34 05:31 05:31 WBC 12.7 H RBC 3.09 L Hgb 8.9 L Hct 27.4 L MCHC RDW 15.8 H MCV MCH Lymph % (Auto) 12.1 L [place] % (Auto) 7.8 H [place] # Eos # Lymph # (Auto) [place] # (Auto) 1.0 H Eos # (Auto) Seg Neutrophils % 77.1 H Seg Neuts % (Manual) Baso # (Auto) Lymphocytes % (Manual) Monocytes % (Manual) Eosinophils % (Manual) Basophils % (Manual) Seg Neutrophils # 9.8 H Seg Neutrophils # Man Lymphocytes # (Manual) Monocytes # (Manual) Eosinophils # (Manual) Nucleated RBC % Basophils # (Manual) PT INR APTT Heparin Anti-Xa Level ABG pH POC ABG pO2 ABG pO2 ABG HCO3 ABG O2 Saturation ABG Base Excess POC ABG pCO2 ABG Hemoglobin ABG Oxyhemoglobin ABG Chloride ABG Glucose Oxyhemoglobin Sodium Potassium Chloride 96.9 L Carbon Dioxide 37 H BUN 27 H Creatinine 0.7 L Glucose 140 H POC Glucose 145 H Lactic Acid Calcium Phosphorus Magnesium AST ALT Lactate Dehydrogenase Total Bilirubin Direct Bilirubin CK-MB (CK-2) C-Reactive Protein NT-Pro-B Natriuret Pep Total Protein Albumin Arterial Blood Glucose Urine WBC (Auto) Urine Creatinine 12/21/19 12/21/19 12/21/19 05:38 10:13 11:51 WBC RBC Hgb Hct MCHC RDW MCV MCH Lymph % (Auto) [place] % (Auto) [place] # Eos # Lymph # (Auto) [place] # (Auto) Eos # (Auto) Seg Neutrophils % Seg Neuts % (Manual) Baso # (Auto) Lymphocytes % (Manual) Monocytes % (Manual) Eosinophils % (Manual) Basophils % (Manual) Seg Neutrophils # Seg Neutrophils # Man Lymphocytes # (Manual) Monocytes # (Manual) Eosinophils # (Manual) Nucleated RBC % Basophils # (Manual) PT INR APTT 23.9 L Heparin Anti-Xa Level < 0.10 L ABG pH POC ABG pO2 ABG pO2 ABG HCO3 ABG O2 Saturation ABG Base Excess POC ABG pCO2 ABG Hemoglobin ABG Oxyhemoglobin ABG Chloride ABG Glucose Oxyhemoglobin Sodium Potassium Chloride Carbon Dioxide BUN Creatinine Glucose POC Glucose 151 H 145 H Lactic Acid Calcium Phosphorus Magnesium AST ALT Lactate Dehydrogenase Total Bilirubin Direct Bilirubin CK-MB (CK-2) C-Reactive Protein NT-Pro-B Natriuret Pep Total Protein Albumin Arterial Blood Glucose Urine WBC (Auto) Urine Creatinine 12/21/19 12/22/19 12/22/19 17:16 00:01 01:33 WBC RBC Hgb Hct MCHC RDW MCV MCH Lymph % (Auto) [place] % (Auto) [place] # Eos # Lymph # (Auto) [place] # (Auto) Eos # (Auto) Seg Neutrophils % Seg Neuts % (Manual) Baso # (Auto) Lymphocytes % (Manual) Monocytes % (Manual) Eosinophils % (Manual) Basophils % (Manual) Seg Neutrophils # Seg Neutrophils # Man Lymphocytes # (Manual) Monocytes # (Manual) Eosinophils # (Manual) Nucleated RBC % Basophils # (Manual) PT INR APTT Heparin Anti-Xa Level 0.10 L ABG pH POC ABG pO2 ABG pO2 ABG HCO3 ABG O2 Saturation ABG Base Excess POC ABG pCO2 ABG Hemoglobin ABG Oxyhemoglobin ABG Chloride ABG Glucose Oxyhemoglobin Sodium Potassium Chloride Carbon Dioxide BUN Creatinine Glucose POC Glucose 167 H 179 H Lactic Acid Calcium Phosphorus Magnesium AST ALT Lactate Dehydrogenase Total Bilirubin Direct Bilirubin CK-MB (CK-2) C-Reactive Protein NT-Pro-B Natriuret Pep Total Protein Albumin Arterial Blood Glucose Urine WBC (Auto) Urine Creatinine 12/22/19 12/22/19 12/22/19 03:22 05:10 05:10 WBC 13.8 H RBC 3.20 L Hgb 8.9 L Hct 28.1 L MCHC RDW 15.9 H MCV MCH Lymph % (Auto) [place] % (Auto) [place] # Eos # Lymph # (Auto) [place] # (Auto) Eos # (Auto) Seg Neutrophils % Seg Neuts % (Manual) Baso # (Auto) Lymphocytes % (Manual) Monocytes % (Manual) Eosinophils % (Manual) Basophils % (Manual) Seg Neutrophils # Seg Neutrophils # Man Lymphocytes # (Manual) Monocytes # (Manual) Eosinophils # (Manual) Nucleated RBC % Basophils # (Manual) PT INR APTT Heparin Anti-Xa Level ABG pH POC ABG pO2 52.3 L ABG pO2 ABG HCO3 ABG O2 Saturation ABG Base Excess POC ABG pCO2 52.9 H ABG Hemoglobin 10.7 L ABG Oxyhemoglobin 84 L ABG Chloride ABG Glucose Oxyhemoglobin Sodium Potassium Chloride 96.6 L Carbon Dioxide BUN 25 H Creatinine 0.7 L Glucose 129 H POC Glucose Lactic Acid Calcium Phosphorus Magnesium AST ALT Lactate Dehydrogenase Total Bilirubin Direct Bilirubin CK-MB (CK-2) C-Reactive Protein NT-Pro-B Natriuret Pep Total Protein Albumin Arterial Blood Glucose Urine WBC (Auto) Urine Creatinine 12/22/19 12/22/19 12/22/19 05:18 12:32 12:43 WBC RBC Hgb Hct MCHC RDW MCV MCH Lymph % (Auto) [place] % (Auto) [place] # Eos # Lymph # (Auto) [place] # (Auto) Eos # (Auto) Seg Neutrophils % Seg Neuts % (Manual) Baso # (Auto) Lymphocytes % (Manual) Monocytes % (Manual) Eosinophils % (Manual) Basophils % (Manual) Seg Neutrophils # Seg Neutrophils # Man Lymphocytes # (Manual) Monocytes # (Manual) Eosinophils # (Manual) Nucleated RBC % Basophils # (Manual) PT INR APTT Heparin Anti-Xa Level 0.18 L ABG pH POC ABG pO2 ABG pO2 ABG HCO3 ABG O2 Saturation ABG Base Excess POC ABG pCO2 ABG Hemoglobin ABG Oxyhemoglobin ABG Chloride ABG Glucose Oxyhemoglobin Sodium Potassium Chloride Carbon Dioxide BUN Creatinine Glucose POC Glucose 131 H 208 H Lactic Acid Calcium Phosphorus Magnesium AST ALT Lactate Dehydrogenase Total Bilirubin Direct Bilirubin CK-MB (CK-2) C-Reactive Protein NT-Pro-B Natriuret Pep Total Protein Albumin Arterial Blood Glucose Urine WBC (Auto) Urine Creatinine 12/22/19 12/22/19 12/23/19 17:44 23:20 03:51 WBC 15.2 H RBC 3.43 L Hgb 9.6 L Hct 30.3 L MCHC RDW 15.9 H MCV MCH Lymph % (Auto) [place] % (Auto) [place] # Eos # Lymph # (Auto) [place] # (Auto) Eos # (Auto) Seg Neutrophils % Seg Neuts % (Manual) Baso # (Auto) Lymphocytes % (Manual) Monocytes % (Manual) Eosinophils % (Manual) Basophils % (Manual) Seg Neutrophils # Seg Neutrophils # Man Lymphocytes # (Manual) Monocytes # (Manual) Eosinophils # (Manual) Nucleated RBC % Basophils # (Manual) PT INR APTT Heparin Anti-Xa Level ABG pH POC ABG pO2 ABG pO2 ABG HCO3 ABG O2 Saturation ABG Base Excess POC ABG pCO2 ABG Hemoglobin ABG Oxyhemoglobin ABG Chloride ABG Glucose Oxyhemoglobin Sodium Potassium Chloride Carbon Dioxide BUN Creatinine Glucose POC Glucose 209 H 119 H Lactic Acid Calcium Phosphorus Magnesium AST ALT Lactate Dehydrogenase Total Bilirubin Direct Bilirubin CK-MB (CK-2) C-Reactive Protein NT-Pro-B Natriuret Pep Total Protein Albumin Arterial Blood Glucose Urine WBC (Auto) Urine Creatinine 12/23/19 12/23/19 12/23/19 03:51 05:31 12:09 WBC RBC Hgb Hct MCHC RDW MCV MCH Lymph % (Auto) [place] % (Auto) [place] # Eos # Lymph # (Auto) [place] # (Auto) Eos # (Auto) Seg Neutrophils % Seg Neuts % (Manual) Baso # (Auto) Lymphocytes % (Manual) Monocytes % (Manual) Eosinophils % (Manual) Basophils % (Manual) Seg Neutrophils # Seg Neutrophils # Man Lymphocytes # (Manual) Monocytes # (Manual) Eosinophils # (Manual) Nucleated RBC % Basophils # (Manual) PT INR APTT Heparin Anti-Xa Level ABG pH POC ABG pO2 ABG pO2 ABG HCO3 ABG O2 Saturation ABG Base Excess POC ABG pCO2 ABG Hemoglobin ABG Oxyhemoglobin ABG Chloride ABG Glucose Oxyhemoglobin Sodium Potassium Chloride 97.2 L Carbon Dioxide 31 H BUN 23 H Creatinine 0.6 L Glucose 153 H POC Glucose 149 H 144 H Lactic Acid Calcium Phosphorus Magnesium AST ALT Lactate Dehydrogenase Total Bilirubin Direct Bilirubin CK-MB (CK-2) C-Reactive Protein NT-Pro-B Natriuret Pep Total Protein Albumin Arterial Blood Glucose Urine WBC (Auto) Urine Creatinine 12/23/19 12/23/19 12/23/19 15:30 17:49 23:31 WBC RBC Hgb Hct MCHC RDW MCV MCH Lymph % (Auto) [place] % (Auto) [place] # Eos # Lymph # (Auto) [place] # (Auto) Eos # (Auto) Seg Neutrophils % Seg Neuts % (Manual) Baso # (Auto) Lymphocytes % (Manual) Monocytes % (Manual) Eosinophils % (Manual) Basophils % (Manual) Seg Neutrophils # Seg Neutrophils # Man Lymphocytes # (Manual) Monocytes # (Manual) Eosinophils # (Manual) Nucleated RBC % Basophils # (Manual) PT INR APTT Heparin Anti-Xa Level 0.21 L ABG pH POC ABG pO2 ABG pO2 ABG HCO3 ABG O2 Saturation ABG Base Excess POC ABG pCO2 ABG Hemoglobin ABG Oxyhemoglobin ABG Chloride ABG Glucose Oxyhemoglobin Sodium Potassium Chloride Carbon Dioxide BUN Creatinine Glucose POC Glucose 192 H 151 H Lactic Acid Calcium Phosphorus Magnesium AST ALT Lactate Dehydrogenase Total Bilirubin Direct Bilirubin CK-MB (CK-2) C-Reactive Protein NT-Pro-B Natriuret Pep Total Protein Albumin Arterial Blood Glucose Urine WBC (Auto) Urine Creatinine 12/24/19 12/24/19 12/24/19 05:34 12:13 16:50 WBC RBC Hgb Hct MCHC RDW MCV MCH Lymph % (Auto) [place] % (Auto) [place] # Eos # Lymph # (Auto) [place] # (Auto) Eos # (Auto) Seg Neutrophils % Seg Neuts % (Manual) Baso # (Auto) Lymphocytes % (Manual) Monocytes % (Manual) Eosinophils % (Manual) Basophils % (Manual) Seg Neutrophils # Seg Neutrophils # Man Lymphocytes # (Manual) Monocytes # (Manual) Eosinophils # (Manual) Nucleated RBC % Basophils # (Manual) PT INR APTT Heparin Anti-Xa Level 0.16 L ABG pH POC ABG pO2 ABG pO2 ABG HCO3 ABG O2 Saturation ABG Base Excess POC ABG pCO2 ABG Hemoglobin ABG Oxyhemoglobin ABG Chloride ABG Glucose Oxyhemoglobin Sodium Potassium Chloride Carbon Dioxide BUN Creatinine Glucose POC Glucose 145 H 124 H Lactic Acid Calcium Phosphorus Magnesium AST ALT Lactate Dehydrogenase Total Bilirubin Direct Bilirubin CK-MB (CK-2) C-Reactive Protein NT-Pro-B Natriuret Pep Total Protein Albumin Arterial Blood Glucose Urine WBC (Auto) Urine Creatinine 12/24/19 12/25/19 12/25/19 17:53 00:14 04:18 WBC 12.9 H RBC 3.30 L Hgb 9.1 L Hct 28.8 L MCHC RDW 16.4 H MCV MCH Lymph % (Auto) [place] % (Auto) 7.8 H [place] # Eos # Lymph # (Auto) [place] # (Auto) 1.0 H Eos # (Auto) Seg Neutrophils % 75.5 H Seg Neuts % (Manual) Baso # (Auto) Lymphocytes % (Manual) Monocytes % (Manual) Eosinophils % (Manual) Basophils % (Manual) Seg Neutrophils # 9.7 H Seg Neutrophils # Man Lymphocytes # (Manual) Monocytes # (Manual) Eosinophils # (Manual) Nucleated RBC % Basophils # (Manual) PT INR APTT Heparin Anti-Xa Level ABG pH POC ABG pO2 ABG pO2 ABG HCO3 ABG O2 Saturation ABG Base Excess POC ABG pCO2 ABG Hemoglobin ABG Oxyhemoglobin ABG Chloride ABG Glucose Oxyhemoglobin Sodium Potassium Chloride Carbon Dioxide BUN Creatinine Glucose POC Glucose 164 H 148 H Lactic Acid Calcium Phosphorus Magnesium AST ALT Lactate Dehydrogenase Total Bilirubin Direct Bilirubin CK-MB (CK-2) C-Reactive Protein NT-Pro-B Natriuret Pep Total Protein Albumin Arterial Blood Glucose Urine WBC (Auto) Urine Creatinine 12/25/19 12/25/19 12/25/19 04:18 05:38 11:44 WBC RBC Hgb Hct MCHC RDW MCV MCH Lymph % (Auto) [place] % (Auto) [place] # Eos # Lymph # (Auto) [place] # (Auto) Eos # (Auto) Seg Neutrophils % Seg Neuts % (Manual) Baso # (Auto) Lymphocytes % (Manual) Monocytes % (Manual) Eosinophils % (Manual) Basophils % (Manual) Seg Neutrophils # Seg Neutrophils # Man Lymphocytes # (Manual) Monocytes # (Manual) Eosinophils # (Manual) Nucleated RBC % Basophils # (Manual) PT INR APTT Heparin Anti-Xa Level ABG pH POC ABG pO2 ABG pO2 ABG HCO3 ABG O2 Saturation ABG Base Excess POC ABG pCO2 ABG Hemoglobin ABG Oxyhemoglobin ABG Chloride ABG Glucose Oxyhemoglobin Sodium Potassium Chloride Carbon Dioxide 33 H BUN 27 H Creatinine 0.6 L Glucose 132 H POC Glucose 152 H 166 H Lactic Acid Calcium Phosphorus Magnesium AST ALT Lactate Dehydrogenase Total Bilirubin Direct Bilirubin CK-MB (CK-2) C-Reactive Protein NT-Pro-B Natriuret Pep Total Protein Albumin Arterial Blood Glucose Urine WBC (Auto) Urine Creatinine 12/25/19 12/26/19 12/26/19 18:29 00:17 00:18 WBC RBC Hgb Hct MCHC RDW MCV MCH Lymph % (Auto) [place] % (Auto) [place] # Eos # Lymph # (Auto) [place] # (Auto) Eos # (Auto) Seg Neutrophils % Seg Neuts % (Manual) Baso # (Auto) Lymphocytes % (Manual) Monocytes % (Manual) Eosinophils % (Manual) Basophils % (Manual) Seg Neutrophils # Seg Neutrophils # Man Lymphocytes # (Manual) Monocytes # (Manual) Eosinophils # (Manual) Nucleated RBC % Basophils # (Manual) PT INR APTT Heparin Anti-Xa Level ABG pH POC ABG pO2 ABG pO2 ABG HCO3 ABG O2 Saturation ABG Base Excess POC ABG pCO2 ABG Hemoglobin ABG Oxyhemoglobin ABG Chloride ABG Glucose Oxyhemoglobin Sodium Potassium Chloride 97.8 L Carbon Dioxide BUN 25 H Creatinine 0.6 L Glucose 140 H POC Glucose 194 H 151 H Lactic Acid Calcium Phosphorus Magnesium AST ALT Lactate Dehydrogenase Total Bilirubin Direct Bilirubin CK-MB (CK-2) C-Reactive Protein NT-Pro-B Natriuret Pep Total Protein Albumin Arterial Blood Glucose Urine WBC (Auto) Urine Creatinine 12/26/19 12/26/19 12/26/19 05:36 11:41 17:50 WBC RBC Hgb Hct MCHC RDW MCV MCH Lymph % (Auto) [place] % (Auto) [place] # Eos # Lymph # (Auto) [place] # (Auto) Eos # (Auto) Seg Neutrophils % Seg Neuts % (Manual) Baso # (Auto) Lymphocytes % (Manual) Monocytes % (Manual) Eosinophils % (Manual) Basophils % (Manual) Seg Neutrophils # Seg Neutrophils # Man Lymphocytes # (Manual) Monocytes # (Manual) Eosinophils # (Manual) Nucleated RBC % Basophils # (Manual) PT INR APTT Heparin Anti-Xa Level ABG pH POC ABG pO2 ABG pO2 ABG HCO3 ABG O2 Saturation ABG Base Excess POC ABG pCO2 ABG Hemoglobin ABG Oxyhemoglobin ABG Chloride ABG Glucose Oxyhemoglobin Sodium Potassium Chloride Carbon Dioxide BUN Creatinine Glucose POC Glucose 156 H 148 H 139 H Lactic Acid Calcium Phosphorus Magnesium AST ALT Lactate Dehydrogenase Total Bilirubin Direct Bilirubin CK-MB (CK-2) C-Reactive Protein NT-Pro-B Natriuret Pep Total Protein Albumin Arterial Blood Glucose Urine WBC (Auto) Urine Creatinine 12/26/19 12/27/19 12/27/19 23:19 05:34 12:02 WBC RBC Hgb Hct MCHC RDW MCV MCH Lymph % (Auto) [place] % (Auto) [place] # Eos # Lymph # (Auto) [place] # (Auto) Eos # (Auto) Seg Neutrophils % Seg Neuts % (Manual) Baso # (Auto) Lymphocytes % (Manual) Monocytes % (Manual) Eosinophils % (Manual) Basophils % (Manual) Seg Neutrophils # Seg Neutrophils # Man Lymphocytes # (Manual) Monocytes # (Manual) Eosinophils # (Manual) Nucleated RBC % Basophils # (Manual) PT INR APTT Heparin Anti-Xa Level ABG pH POC ABG pO2 ABG pO2 ABG HCO3 ABG O2 Saturation ABG Base Excess POC ABG pCO2 ABG Hemoglobin ABG Oxyhemoglobin ABG Chloride ABG Glucose Oxyhemoglobin Sodium Potassium Chloride Carbon Dioxide BUN Creatinine Glucose POC Glucose 161 H 145 H 157 H Lactic Acid Calcium Phosphorus Magnesium AST ALT Lactate Dehydrogenase Total Bilirubin Direct Bilirubin CK-MB (CK-2) C-Reactive Protein NT-Pro-B Natriuret Pep Total Protein Albumin Arterial Blood Glucose Urine WBC (Auto) Urine Creatinine 12/27/19 12/27/19 12/27/19 17:35 20:11 23:00 WBC RBC Hgb Hct MCHC RDW MCV MCH Lymph % (Auto) [place] % (Auto) [place] # Eos # Lymph # (Auto) [place] # (Auto) Eos # (Auto) Seg Neutrophils % Seg Neuts % (Manual) Baso # (Auto) Lymphocytes % (Manual) Monocytes % (Manual) Eosinophils % (Manual) Basophils % (Manual) Seg Neutrophils # Seg Neutrophils # Man Lymphocytes # (Manual) Monocytes # (Manual) Eosinophils # (Manual) Nucleated RBC % Basophils # (Manual) PT INR APTT Heparin Anti-Xa Level 0.19 L ABG pH POC ABG pO2 ABG pO2 ABG HCO3 ABG O2 Saturation ABG Base Excess POC ABG pCO2 ABG Hemoglobin ABG Oxyhemoglobin ABG Chloride ABG Glucose Oxyhemoglobin Sodium Potassium Chloride Carbon Dioxide BUN Creatinine Glucose POC Glucose 158 H 155 H Lactic Acid Calcium Phosphorus Magnesium AST ALT Lactate Dehydrogenase Total Bilirubin Direct Bilirubin CK-MB (CK-2) C-Reactive Protein NT-Pro-B Natriuret Pep Total Protein Albumin Arterial Blood Glucose Urine WBC (Auto) Urine Creatinine 12/27/19 12/28/19 12/28/19 23:45 02:41 02:41 WBC 13.0 H RBC 3.48 L Hgb 9.5 L Hct 30.6 L MCHC 31 L RDW 16.6 H MCV MCH 27 L Lymph % (Auto) 13.0 L [place] % (Auto) 8.0 H [place] # Eos # Lymph # (Auto) [place] # (Auto) 1.0 H Eos # (Auto) Seg Neutrophils % 76.3 H Seg Neuts % (Manual) Baso # (Auto) Lymphocytes % (Manual) Monocytes % (Manual) Eosinophils % (Manual) Basophils % (Manual) Seg Neutrophils # 9.9 H Seg Neutrophils # Man Lymphocytes # (Manual) Monocytes # (Manual) Eosinophils # (Manual) Nucleated RBC % Basophils # (Manual) PT INR APTT Heparin Anti-Xa Level ABG pH POC ABG pO2 ABG pO2 ABG HCO3 ABG O2 Saturation ABG Base Excess POC ABG pCO2 ABG Hemoglobin ABG Oxyhemoglobin ABG Chloride ABG Glucose Oxyhemoglobin Sodium Potassium Chloride Carbon Dioxide BUN 22 H Creatinine 0.6 L Glucose 101 H POC Glucose 130 H Lactic Acid Calcium Phosphorus Magnesium AST ALT Lactate Dehydrogenase Total Bilirubin Direct Bilirubin CK-MB (CK-2) C-Reactive Protein NT-Pro-B Natriuret Pep Total Protein Albumin Arterial Blood Glucose Urine WBC (Auto) Urine Creatinine 12/28/19 12/28/19 12/28/19 06:00 12:34 18:13 WBC RBC Hgb Hct MCHC RDW MCV MCH Lymph % (Auto) [place] % (Auto) [place] # Eos # Lymph # (Auto) [place] # (Auto) Eos # (Auto) Seg Neutrophils % Seg Neuts % (Manual) Baso # (Auto) Lymphocytes % (Manual) Monocytes % (Manual) Eosinophils % (Manual) Basophils % (Manual) Seg Neutrophils # Seg Neutrophils # Man Lymphocytes # (Manual) Monocytes # (Manual) Eosinophils # (Manual) Nucleated RBC % Basophils # (Manual) PT INR APTT Heparin Anti-Xa Level ABG pH POC ABG pO2 ABG pO2 ABG HCO3 ABG O2 Saturation ABG Base Excess POC ABG pCO2 ABG Hemoglobin ABG Oxyhemoglobin ABG Chloride ABG Glucose Oxyhemoglobin Sodium Potassium Chloride Carbon Dioxide BUN Creatinine Glucose POC Glucose 150 H 161 H 128 H Lactic Acid Calcium Phosphorus Magnesium AST ALT Lactate Dehydrogenase Total Bilirubin Direct Bilirubin CK-MB (CK-2) C-Reactive Protein NT-Pro-B Natriuret Pep Total Protein Albumin Arterial Blood Glucose Urine WBC (Auto) Urine Creatinine 12/28/19 12/29/19 12/29/19 23:36 05:21 11:40 WBC RBC Hgb Hct MCHC RDW MCV MCH Lymph % (Auto) [place] % (Auto) [place] # Eos # Lymph # (Auto) [place] # (Auto) Eos # (Auto) Seg Neutrophils % Seg Neuts % (Manual) Baso # (Auto) Lymphocytes % (Manual) Monocytes % (Manual) Eosinophils % (Manual) Basophils % (Manual) Seg Neutrophils # Seg Neutrophils # Man Lymphocytes # (Manual) Monocytes # (Manual) Eosinophils # (Manual) Nucleated RBC % Basophils # (Manual) PT INR APTT Heparin Anti-Xa Level ABG pH POC ABG pO2 ABG pO2 ABG HCO3 ABG O2 Saturation ABG Base Excess POC ABG pCO2 ABG Hemoglobin ABG Oxyhemoglobin ABG Chloride ABG Glucose Oxyhemoglobin Sodium Potassium Chloride Carbon Dioxide BUN Creatinine Glucose POC Glucose 137 H 136 H 166 H Lactic Acid Calcium Phosphorus Magnesium AST ALT Lactate Dehydrogenase Total Bilirubin Direct Bilirubin CK-MB (CK-2) C-Reactive Protein NT-Pro-B Natriuret Pep Total Protein Albumin Arterial Blood Glucose Urine WBC (Auto) Urine Creatinine 12/29/19 12/29/19 12/29/19 17:23 19:21 23:38 WBC RBC Hgb Hct MCHC RDW MCV MCH Lymph % (Auto) [place] % (Auto) [place] # Eos # Lymph # (Auto) [place] # (Auto) Eos # (Auto) Seg Neutrophils % Seg Neuts % (Manual) Baso # (Auto) Lymphocytes % (Manual) Monocytes % (Manual) Eosinophils % (Manual) Basophils % (Manual) Seg Neutrophils # Seg Neutrophils # Man Lymphocytes # (Manual) Monocytes # (Manual) Eosinophils # (Manual) Nucleated RBC % Basophils # (Manual) PT INR APTT Heparin Anti-Xa Level 0.20 L ABG pH POC ABG pO2 ABG pO2 ABG HCO3 ABG O2 Saturation ABG Base Excess POC ABG pCO2 ABG Hemoglobin ABG Oxyhemoglobin ABG Chloride ABG Glucose Oxyhemoglobin Sodium Potassium Chloride Carbon Dioxide BUN Creatinine Glucose POC Glucose 144 H 141 H Lactic Acid Calcium Phosphorus Magnesium AST ALT Lactate Dehydrogenase Total Bilirubin Direct Bilirubin CK-MB (CK-2) C-Reactive Protein NT-Pro-B Natriuret Pep Total Protein Albumin Arterial Blood Glucose Urine WBC (Auto) Urine Creatinine 12/30/19 12/30/19 12/30/19 03:58 03:58 04:59 WBC RBC 3.54 L Hgb 9.8 L Hct 30.7 L MCHC RDW 16.8 H MCV MCH Lymph % (Auto) [place] % (Auto) [place] # Eos # Lymph # (Auto) [place] # (Auto) Eos # (Auto) Seg Neutrophils % Seg Neuts % (Manual) Baso # (Auto) Lymphocytes % (Manual) Monocytes % (Manual) Eosinophils % (Manual) Basophils % (Manual) Seg Neutrophils # Seg Neutrophils # Man Lymphocytes # (Manual) Monocytes # (Manual) Eosinophils # (Manual) Nucleated RBC % Basophils # (Manual) PT INR APTT Heparin Anti-Xa Level ABG pH POC ABG pO2 ABG pO2 ABG HCO3 29.8 H ABG O2 Saturation ABG Base Excess 4.8 H POC ABG pCO2 ABG Hemoglobin 11.2 L ABG Oxyhemoglobin ABG Chloride ABG Glucose Oxyhemoglobin 93.8 L Sodium Potassium Chloride 97.8 L Carbon Dioxide BUN 26 H Creatinine Glucose 168 H POC Glucose Lactic Acid Calcium Phosphorus Magnesium AST ALT Lactate Dehydrogenase Total Bilirubin Direct Bilirubin CK-MB (CK-2) C-Reactive Protein NT-Pro-B Natriuret Pep Total Protein Albumin Arterial Blood Glucose Urine WBC (Auto) Urine Creatinine 12/30/19 12/30/19 12/30/19 05:45 11:34 17:28 WBC RBC Hgb Hct MCHC RDW MCV MCH Lymph % (Auto) [place] % (Auto) [place] # Eos # Lymph # (Auto) [place] # (Auto) Eos # (Auto) Seg Neutrophils % Seg Neuts % (Manual) Baso # (Auto) Lymphocytes % (Manual) Monocytes % (Manual) Eosinophils % (Manual) Basophils % (Manual) Seg Neutrophils # Seg Neutrophils # Man Lymphocytes # (Manual) Monocytes # (Manual) Eosinophils # (Manual) Nucleated RBC % Basophils # (Manual) PT INR APTT Heparin Anti-Xa Level ABG pH POC ABG pO2 ABG pO2 ABG HCO3 ABG O2 Saturation ABG Base Excess POC ABG pCO2 ABG Hemoglobin ABG Oxyhemoglobin ABG Chloride ABG Glucose Oxyhemoglobin Sodium Potassium Chloride Carbon Dioxide BUN Creatinine Glucose POC Glucose 163 H 180 H 150 H Lactic Acid Calcium Phosphorus Magnesium AST ALT Lactate Dehydrogenase Total Bilirubin Direct Bilirubin CK-MB (CK-2) C-Reactive Protein NT-Pro-B Natriuret Pep Total Protein Albumin Arterial Blood Glucose Urine WBC (Auto) Urine Creatinine 12/30/19 12/31/19 12/31/19 23:43 04:55 05:07 WBC RBC Hgb Hct MCHC RDW MCV MCH Lymph % (Auto) [place] % (Auto) [place] # Eos # Lymph # (Auto) [place] # (Auto) Eos # (Auto) Seg Neutrophils % Seg Neuts % (Manual) Baso # (Auto) Lymphocytes % (Manual) Monocytes % (Manual) Eosinophils % (Manual) Basophils % (Manual) Seg Neutrophils # Seg Neutrophils # Man Lymphocytes # (Manual) Monocytes # (Manual) Eosinophils # (Manual) Nucleated RBC % Basophils # (Manual) PT INR APTT Heparin Anti-Xa Level ABG pH POC ABG pO2 ABG pO2 ABG HCO3 ABG O2 Saturation ABG Base Excess POC ABG pCO2 ABG Hemoglobin ABG Oxyhemoglobin ABG Chloride ABG Glucose Oxyhemoglobin Sodium Potassium 5.6 H D Chloride Carbon Dioxide BUN 33 H Creatinine Glucose 131 H POC Glucose 142 H 134 H Lactic Acid Calcium Phosphorus Magnesium AST ALT Lactate Dehydrogenase Total Bilirubin Direct Bilirubin CK-MB (CK-2) C-Reactive Protein NT-Pro-B Natriuret Pep Total Protein Albumin Arterial Blood Glucose Urine WBC (Auto) Urine Creatinine 12/31/19 12/31/19 12/31/19 11:30 17:19 17:36 WBC RBC Hgb Hct MCHC RDW MCV MCH Lymph % (Auto) [place] % (Auto) [place] # Eos # Lymph # (Auto) [place] # (Auto) Eos # (Auto) Seg Neutrophils % Seg Neuts % (Manual) Baso # (Auto) Lymphocytes % (Manual) Monocytes % (Manual) Eosinophils % (Manual) Basophils % (Manual) Seg Neutrophils # Seg Neutrophils # Man Lymphocytes # (Manual) Monocytes # (Manual) Eosinophils # (Manual) Nucleated RBC % Basophils # (Manual) PT INR APTT Heparin Anti-Xa Level ABG pH POC ABG pO2 ABG pO2 ABG HCO3 ABG O2 Saturation ABG Base Excess POC ABG pCO2 ABG Hemoglobin ABG Oxyhemoglobin ABG Chloride ABG Glucose Oxyhemoglobin Sodium Potassium Chloride Carbon Dioxide BUN 35 H Creatinine Glucose 156 H POC Glucose 158 H 181 H Lactic Acid Calcium Phosphorus Magnesium AST ALT Lactate Dehydrogenase Total Bilirubin Direct Bilirubin CK-MB (CK-2) C-Reactive Protein NT-Pro-B Natriuret Pep Total Protein Albumin Arterial Blood Glucose Urine WBC (Auto) Urine Creatinine 12/31/19 12/31/19 12/31/19 18:16 19:41 21:53 WBC RBC Hgb Hct MCHC RDW MCV MCH Lymph % (Auto) [place] % (Auto) [place] # Eos # Lymph # (Auto) [place] # (Auto) Eos # (Auto) Seg Neutrophils % Seg Neuts % (Manual) Baso # (Auto) Lymphocytes % (Manual) Monocytes % (Manual) Eosinophils % (Manual) Basophils % (Manual) Seg Neutrophils # Seg Neutrophils # Man Lymphocytes # (Manual) Monocytes # (Manual) Eosinophils # (Manual) Nucleated RBC % Basophils # (Manual) PT INR APTT Heparin Anti-Xa Level 0.20 L ABG pH POC ABG pO2 ABG pO2 ABG HCO3 ABG O2 Saturation ABG Base Excess POC ABG pCO2 ABG Hemoglobin ABG Oxyhemoglobin ABG Chloride ABG Glucose Oxyhemoglobin Sodium Potassium Chloride Carbon Dioxide BUN 34 H Creatinine Glucose 169 H POC Glucose 141 H Lactic Acid Calcium Phosphorus Magnesium AST ALT Lactate Dehydrogenase Total Bilirubin Direct Bilirubin CK-MB (CK-2) C-Reactive Protein NT-Pro-B Natriuret Pep Total Protein Albumin Arterial Blood Glucose Urine WBC (Auto) Urine Creatinine 12/31/19 01/01/20 01/01/20 23:51 05:17 10:40 WBC RBC Hgb Hct MCHC RDW MCV MCH Lymph % (Auto) [place] % (Auto) [place] # Eos # Lymph # (Auto) [place] # (Auto) Eos # (Auto) Seg Neutrophils % Seg Neuts % (Manual) Baso # (Auto) Lymphocytes % (Manual) Monocytes % (Manual) Eosinophils % (Manual) Basophils % (Manual) Seg Neutrophils # Seg Neutrophils # Man Lymphocytes # (Manual) Monocytes # (Manual) Eosinophils # (Manual) Nucleated RBC % Basophils # (Manual) PT INR APTT Heparin Anti-Xa Level ABG pH POC ABG pO2 ABG pO2 ABG HCO3 ABG O2 Saturation ABG Base Excess POC ABG pCO2 ABG Hemoglobin ABG Oxyhemoglobin ABG Chloride ABG Glucose Oxyhemoglobin Sodium Potassium Chloride Carbon Dioxide BUN 31 H Creatinine 0.7 L Glucose 137 H POC Glucose 131 H 155 H Lactic Acid Calcium Phosphorus Magnesium AST 73 H ALT 97 H Lactate Dehydrogenase Total Bilirubin Direct Bilirubin CK-MB (CK-2) C-Reactive Protein NT-Pro-B Natriuret Pep 3866 H Total Protein Albumin 2.8 L Arterial Blood Glucose Urine WBC (Auto) Urine Creatinine 01/01/20 01/01/20 01/01/20 12:26 15:33 17:53 WBC 14.3 H RBC 3.35 L Hgb 9.1 L Hct 28.8 L MCHC RDW 17.0 H MCV MCH 27 L Lymph % (Auto) 7.0 L [place] % (Auto) 7.6 H [place] # Eos # Lymph # (Auto) 1.0 L [place] # (Auto) 1.1 H Eos # (Auto) Seg Neutrophils % 83.3 H Seg Neuts % (Manual) Baso # (Auto) Lymphocytes % (Manual) Monocytes % (Manual) Eosinophils % (Manual) Basophils % (Manual) Seg Neutrophils # 12.0 H Seg Neutrophils # Man Lymphocytes # (Manual) Monocytes # (Manual) Eosinophils # (Manual) Nucleated RBC % Basophils # (Manual) PT INR APTT Heparin Anti-Xa Level ABG pH POC ABG pO2 ABG pO2 ABG HCO3 ABG O2 Saturation ABG Base Excess POC ABG pCO2 ABG Hemoglobin ABG Oxyhemoglobin ABG Chloride ABG Glucose Oxyhemoglobin Sodium Potassium Chloride Carbon Dioxide BUN Creatinine Glucose POC Glucose 128 H 128 H Lactic Acid Calcium Phosphorus Magnesium AST ALT Lactate Dehydrogenase Total Bilirubin Direct Bilirubin CK-MB (CK-2) C-Reactive Protein NT-Pro-B Natriuret Pep Total Protein Albumin Arterial Blood Glucose Urine WBC (Auto) Urine Creatinine 01/01/20 01/02/20 01/02/20 23:04 05:39 07:00 WBC RBC Hgb Hct MCHC RDW MCV MCH Lymph % (Auto) [place] % (Auto) [place] # Eos # Lymph # (Auto) [place] # (Auto) Eos # (Auto) Seg Neutrophils % Seg Neuts % (Manual) Baso # (Auto) Lymphocytes % (Manual) Monocytes % (Manual) Eosinophils % (Manual) Basophils % (Manual) Seg Neutrophils # Seg Neutrophils # Man Lymphocytes # (Manual) Monocytes # (Manual) Eosinophils # (Manual) Nucleated RBC % Basophils # (Manual) PT INR APTT Heparin Anti-Xa Level 0.13 L ABG pH POC ABG pO2 ABG pO2 ABG HCO3 ABG O2 Saturation ABG Base Excess POC ABG pCO2 ABG Hemoglobin ABG Oxyhemoglobin ABG Chloride ABG Glucose Oxyhemoglobin Sodium Potassium Chloride Carbon Dioxide BUN Creatinine Glucose POC Glucose 120 H 169 H Lactic Acid Calcium Phosphorus Magnesium AST ALT Lactate Dehydrogenase Total Bilirubin Direct Bilirubin CK-MB (CK-2) C-Reactive Protein NT-Pro-B Natriuret Pep Total Protein Albumin Arterial Blood Glucose Urine WBC (Auto) Urine Creatinine 01/02/20 01/02/20 01/02/20 12:15 14:06 17:58 WBC RBC Hgb Hct MCHC RDW MCV MCH Lymph % (Auto) [place] % (Auto) [place] # Eos # Lymph # (Auto) [place] # (Auto) Eos # (Auto) Seg Neutrophils % Seg Neuts % (Manual) Baso # (Auto) Lymphocytes % (Manual) Monocytes % (Manual) Eosinophils % (Manual) Basophils % (Manual) Seg Neutrophils # Seg Neutrophils # Man Lymphocytes # (Manual) Monocytes # (Manual) Eosinophils # (Manual) Nucleated RBC % Basophils # (Manual) PT INR APTT Heparin Anti-Xa Level < 0.10 L ABG pH POC ABG pO2 ABG pO2 ABG HCO3 ABG O2 Saturation ABG Base Excess POC ABG pCO2 ABG Hemoglobin ABG Oxyhemoglobin ABG Chloride ABG Glucose Oxyhemoglobin Sodium Potassium Chloride Carbon Dioxide BUN Creatinine Glucose POC Glucose 190 H 198 H Lactic Acid Calcium Phosphorus Magnesium AST ALT Lactate Dehydrogenase Total Bilirubin Direct Bilirubin CK-MB (CK-2) C-Reactive Protein NT-Pro-B Natriuret Pep Total Protein Albumin Arterial Blood Glucose Urine WBC (Auto) Urine Creatinine 01/02/20 01/02/20 01/03/20 21:43 23:33 05:42 WBC RBC Hgb Hct MCHC RDW MCV MCH Lymph % (Auto) [place] % (Auto) [place] # Eos # Lymph # (Auto) [place] # (Auto) Eos # (Auto) Seg Neutrophils % Seg Neuts % (Manual) Baso # (Auto) Lymphocytes % (Manual) Monocytes % (Manual) Eosinophils % (Manual) Basophils % (Manual) Seg Neutrophils # Seg Neutrophils # Man Lymphocytes # (Manual) Monocytes # (Manual) Eosinophils # (Manual) Nucleated RBC % Basophils # (Manual) PT INR APTT Heparin Anti-Xa Level 0.10 L ABG pH POC ABG pO2 ABG pO2 ABG HCO3 ABG O2 Saturation ABG Base Excess POC ABG pCO2 ABG Hemoglobin ABG Oxyhemoglobin ABG Chloride ABG Glucose Oxyhemoglobin Sodium Potassium Chloride Carbon Dioxide BUN Creatinine Glucose POC Glucose 180 H 163 H Lactic Acid Calcium Phosphorus Magnesium AST ALT Lactate Dehydrogenase Total Bilirubin Direct Bilirubin CK-MB (CK-2) C-Reactive Protein NT-Pro-B Natriuret Pep Total Protein Albumin Arterial Blood Glucose Urine WBC (Auto) Urine Creatinine 1001/03/20 01/03/20 06:50 07:25 07:45 WBC 12.1 H RBC 3.35 L Hgb 9.0 L Hct 28.9 L MCHC 31 L RDW 16.6 H MCV MCH 27 L Lymph % (Auto) 13.0 L [place] % (Auto) 8.6 H [place] # Eos # Lymph # (Auto) [place] # (Auto) 1.0 H Eos # (Auto) Seg Neutrophils % 75.9 H Seg Neuts % (Manual) Baso # (Auto) Lymphocytes % (Manual) Monocytes % (Manual) Eosinophils % (Manual) Basophils % (Manual) Seg Neutrophils # 9.2 H Seg Neutrophils # Man Lymphocytes # (Manual) Monocytes # (Manual) Eosinophils # (Manual) Nucleated RBC % Basophils # (Manual) PT INR APTT Heparin Anti-Xa Level 0.29 L ABG pH POC ABG pO2 ABG pO2 ABG HCO3 ABG O2 Saturation ABG Base Excess POC ABG pCO2 ABG Hemoglobin ABG Oxyhemoglobin ABG Chloride ABG Glucose Oxyhemoglobin Sodium Potassium 3.3 L D Chloride Carbon Dioxide 35 H D BUN 23 H Creatinine 0.6 L Glucose 149 H POC Glucose Lactic Acid Calcium Phosphorus Magnesium AST ALT 88 H Lactate Dehydrogenase Total Bilirubin Direct Bilirubin CK-MB (CK-2) C-Reactive Protein NT-Pro-B Natriuret Pep Total Protein 6.2 L Albumin 2.9 L Arterial Blood Glucose Urine WBC (Auto) Urine Creatinine 01/03/20 01/03/20 01/03/20 12:05 17:42 18:30 WBC RBC Hgb Hct MCHC RDW MCV MCH Lymph % (Auto) [place] % (Auto) [place] # Eos # Lymph # (Auto) [place] # (Auto) Eos # (Auto) Seg Neutrophils % Seg Neuts % (Manual) Baso # (Auto) Lymphocytes % (Manual) Monocytes % (Manual) Eosinophils % (Manual) Basophils % (Manual) Seg Neutrophils # Seg Neutrophils # Man Lymphocytes # (Manual) Monocytes # (Manual) Eosinophils # (Manual) Nucleated RBC % Basophils # (Manual) PT INR APTT Heparin Anti-Xa Level ABG pH POC ABG pO2 ABG pO2 70.7 L ABG HCO3 36.1 H ABG O2 Saturation 94.4 L ABG Base Excess 10.0 H POC ABG pCO2 ABG Hemoglobin 9.7 L ABG Oxyhemoglobin ABG Chloride ABG Glucose Oxyhemoglobin 91.8 L Sodium Potassium Chloride Carbon Dioxide BUN Creatinine Glucose POC Glucose 128 H 132 H Lactic Acid Calcium Phosphorus Magnesium AST ALT Lactate Dehydrogenase Total Bilirubin Direct Bilirubin CK-MB (CK-2) C-Reactive Protein NT-Pro-B Natriuret Pep Total Protein Albumin Arterial Blood Glucose Urine WBC (Auto) Urine Creatinine 01/04/20 01/04/20 01/04/20 00:10 04:26 05:23 WBC RBC Hgb Hct MCHC RDW MCV MCH Lymph % (Auto) [place] % (Auto) [place] # Eos # Lymph # (Auto) [place] # (Auto) Eos # (Auto) Seg Neutrophils % Seg Neuts % (Manual) Baso # (Auto) Lymphocytes % (Manual) Monocytes % (Manual) Eosinophils % (Manual) Basophils % (Manual) Seg Neutrophils # Seg Neutrophils # Man Lymphocytes # (Manual) Monocytes # (Manual) Eosinophils # (Manual) Nucleated RBC % Basophils # (Manual) PT INR APTT Heparin Anti-Xa Level 0.16 L ABG pH POC ABG pO2 ABG pO2 ABG HCO3 ABG O2 Saturation ABG Base Excess POC ABG pCO2 ABG Hemoglobin ABG Oxyhemoglobin ABG Chloride ABG Glucose Oxyhemoglobin Sodium Potassium Chloride Carbon Dioxide BUN Creatinine Glucose POC Glucose 121 H 119 H Lactic Acid Calcium Phosphorus Magnesium AST ALT Lactate Dehydrogenase Total Bilirubin Direct Bilirubin CK-MB (CK-2) C-Reactive Protein NT-Pro-B Natriuret Pep Total Protein Albumin Arterial Blood Glucose Urine WBC (Auto) Urine Creatinine 01/04/20 01/04/20 01/04/20 09:50 09:50 12:18 WBC 15.4 H RBC 3.30 L Hgb 8.7 L Hct 28.2 L MCHC 31 L RDW 17.0 H MCV MCH 26 L Lymph % (Auto) [place] % (Auto) 7.6 H [place] # Eos # Lymph # (Auto) [place] # (Auto) 1.2 H Eos # (Auto) Seg Neutrophils % 75.4 H Seg Neuts % (Manual) Baso # (Auto) Lymphocytes % (Manual) Monocytes % (Manual) Eosinophils % (Manual) Basophils % (Manual) Seg Neutrophils # 11.6 H Seg Neutrophils # Man Lymphocytes # (Manual) Monocytes # (Manual) Eosinophils # (Manual) Nucleated RBC % Basophils # (Manual) PT INR APTT Heparin Anti-Xa Level ABG pH POC ABG pO2 ABG pO2 ABG HCO3 ABG O2 Saturation ABG Base Excess POC ABG pCO2 ABG Hemoglobin ABG Oxyhemoglobin ABG Chloride ABG Glucose Oxyhemoglobin Sodium 148 H Potassium 3.5 L Chloride Carbon Dioxide 32 H BUN Creatinine 0.6 L Glucose 114 H POC Glucose 111 H Lactic Acid Calcium Phosphorus Magnesium AST ALT 59 H Lactate Dehydrogenase Total Bilirubin Direct Bilirubin CK-MB (CK-2) C-Reactive Protein NT-Pro-B Natriuret Pep Total Protein Albumin 2.6 L Arterial Blood Glucose Urine WBC (Auto) Urine Creatinine 01/05/20 01/05/20 01/05/20 04:05 04:05 05:19 WBC 11.7 H RBC 3.50 L Hgb 9.3 L Hct 29.9 L MCHC 31 L RDW 16.6 H MCV MCH 27 L Lymph % (Auto) 13.1 L [place] % (Auto) 9.7 H [place] # Eos # Lymph # (Auto) [place] # (Auto) 1.1 H Eos # (Auto) Seg Neutrophils % 74.0 H Seg Neuts % (Manual) Baso # (Auto) Lymphocytes % (Manual) Monocytes % (Manual) Eosinophils % (Manual) Basophils % (Manual) Seg Neutrophils # 8.6 H Seg Neutrophils # Man Lymphocytes # (Manual) Monocytes # (Manual) Eosinophils # (Manual) Nucleated RBC % Basophils # (Manual) PT INR APTT Heparin Anti-Xa Level ABG pH POC ABG pO2 ABG pO2 ABG HCO3 ABG O2 Saturation ABG Base Excess POC ABG pCO2 ABG Hemoglobin ABG Oxyhemoglobin ABG Chloride ABG Glucose Oxyhemoglobin Sodium 151 H Potassium Chloride Carbon Dioxide 34 H BUN Creatinine 0.7 L Glucose POC Glucose 112 H Lactic Acid Calcium Phosphorus Magnesium AST ALT 59 H Lactate Dehydrogenase Total Bilirubin Direct Bilirubin CK-MB (CK-2) C-Reactive Protein NT-Pro-B Natriuret Pep Total Protein 5.8 L Albumin 2.6 L Arterial Blood Glucose Urine WBC (Auto) Urine Creatinine 01/05/20 01/06/20 01/06/20 16:04 00:23 04:44 WBC RBC 3.36 L Hgb 8.9 L Hct 28.7 L MCHC 31 L RDW 16.9 H MCV MCH 26 L Lymph % (Auto) [place] % (Auto) 9.4 H [place] # Eos # Lymph # (Auto) [place] # (Auto) Eos # (Auto) Seg Neutrophils % Seg Neuts % (Manual) Baso # (Auto) Lymphocytes % (Manual) Monocytes % (Manual) Eosinophils % (Manual) Basophils % (Manual) Seg Neutrophils # Seg Neutrophils # Man Lymphocytes # (Manual) Monocytes # (Manual) Eosinophils # (Manual) Nucleated RBC % Basophils # (Manual) PT INR APTT Heparin Anti-Xa Level ABG pH POC ABG pO2 ABG pO2 ABG HCO3 ABG O2 Saturation ABG Base Excess POC ABG pCO2 ABG Hemoglobin ABG Oxyhemoglobin ABG Chloride ABG Glucose Oxyhemoglobin Sodium 151 H Potassium 3.2 L Chloride Carbon Dioxide 34 H BUN Creatinine 0.6 L Glucose POC Glucose 107 H Lactic Acid Calcium Phosphorus Magnesium AST ALT Lactate Dehydrogenase Total Bilirubin Direct Bilirubin CK-MB (CK-2) C-Reactive Protein NT-Pro-B Natriuret Pep Total Protein Albumin Arterial Blood Glucose Urine WBC (Auto) Urine Creatinine 01/06/20 01/06/20 01/06/20 04:44 05:33 12:04 WBC RBC Hgb Hct MCHC RDW MCV MCH Lymph % (Auto) [place] % (Auto) [place] # Eos # Lymph # (Auto) [place] # (Auto) Eos # (Auto) Seg Neutrophils % Seg Neuts % (Manual) Baso # (Auto) Lymphocytes % (Manual) Monocytes % (Manual) Eosinophils % (Manual) Basophils % (Manual) Seg Neutrophils # Seg Neutrophils # Man Lymphocytes # (Manual) Monocytes # (Manual) Eosinophils # (Manual) Nucleated RBC % Basophils # (Manual) PT INR APTT Heparin Anti-Xa Level ABG pH POC ABG pO2 ABG pO2 ABG HCO3 ABG O2 Saturation ABG Base Excess POC ABG pCO2 ABG Hemoglobin ABG Oxyhemoglobin ABG Chloride ABG Glucose Oxyhemoglobin Sodium 151 H Potassium 3.4 L Chloride Carbon Dioxide 33 H BUN Creatinine 0.6 L Glucose 118 H POC Glucose 118 H 123 H Lactic Acid Calcium Phosphorus Magnesium AST ALT Lactate Dehydrogenase Total Bilirubin Direct Bilirubin CK-MB (CK-2) C-Reactive Protein NT-Pro-B Natriuret Pep Total Protein 6.2 L Albumin 2.6 L Arterial Blood Glucose Urine WBC (Auto) Urine Creatinine 01/06/20 01/07/20 01/07/20 17:54 00:06 04:10 WBC RBC 3.42 L Hgb 8.9 L Hct 29.0 L MCHC 31 L RDW 17.1 H MCV MCH 26 L Lymph % (Auto) [place] % (Auto) 8.4 H [place] # Eos # Lymph # (Auto) [place] # (Auto) Eos # (Auto) Seg Neutrophils % Seg Neuts % (Manual) Baso # (Auto) Lymphocytes % (Manual) Monocytes % (Manual) Eosinophils % (Manual) Basophils % (Manual) Seg Neutrophils # Seg Neutrophils # Man Lymphocytes # (Manual) Monocytes # (Manual) Eosinophils # (Manual) Nucleated RBC % Basophils # (Manual) PT INR APTT Heparin Anti-Xa Level ABG pH POC ABG pO2 ABG pO2 ABG HCO3 ABG O2 Saturation ABG Base Excess POC ABG pCO2 ABG Hemoglobin ABG Oxyhemoglobin ABG Chloride ABG Glucose Oxyhemoglobin Sodium Potassium Chloride Carbon Dioxide BUN Creatinine Glucose POC Glucose 112 H 126 H Lactic Acid Calcium Phosphorus Magnesium AST ALT Lactate Dehydrogenase Total Bilirubin Direct Bilirubin CK-MB (CK-2) C-Reactive Protein NT-Pro-B Natriuret Pep Total Protein Albumin Arterial Blood Glucose Urine WBC (Auto) Urine Creatinine 01/07/20 01/07/20 01/07/20 04:10 05:59 12:27 WBC RBC Hgb Hct MCHC RDW MCV MCH Lymph % (Auto) [place] % (Auto) [place] # Eos # Lymph # (Auto) [place] # (Auto) Eos # (Auto) Seg Neutrophils % Seg Neuts % (Manual) Baso # (Auto) Lymphocytes % (Manual) Monocytes % (Manual) Eosinophils % (Manual) Basophils % (Manual) Seg Neutrophils # Seg Neutrophils # Man Lymphocytes # (Manual) Monocytes # (Manual) Eosinophils # (Manual) Nucleated RBC % Basophils # (Manual) PT INR APTT Heparin Anti-Xa Level ABG pH POC ABG pO2 ABG pO2 ABG HCO3 ABG O2 Saturation ABG Base Excess POC ABG pCO2 ABG Hemoglobin ABG Oxyhemoglobin ABG Chloride ABG Glucose Oxyhemoglobin Sodium 153 H Potassium 3.5 L Chloride Carbon Dioxide 34 H BUN Creatinine 0.6 L Glucose 121 H POC Glucose 121 H 126 H Lactic Acid Calcium Phosphorus Magnesium AST ALT Lactate Dehydrogenase Total Bilirubin Direct Bilirubin CK-MB (CK-2) C-Reactive Protein NT-Pro-B Natriuret Pep Total Protein 5.9 L Albumin 2.4 L Arterial Blood Glucose Urine WBC (Auto) Urine Creatinine 01/07/20 01/08/20 01/08/20 18:12 00:03 05:41 WBC RBC Hgb Hct MCHC RDW MCV MCH Lymph % (Auto) [place] % (Auto) [place] # Eos # Lymph # (Auto) [place] # (Auto) Eos # (Auto) Seg Neutrophils % Seg Neuts % (Manual) Baso # (Auto) Lymphocytes % (Manual) Monocytes % (Manual) Eosinophils % (Manual) Basophils % (Manual) Seg Neutrophils # Seg Neutrophils # Man Lymphocytes # (Manual) Monocytes # (Manual) Eosinophils # (Manual) Nucleated RBC % Basophils # (Manual) PT INR APTT Heparin Anti-Xa Level ABG pH POC ABG pO2 ABG pO2 ABG HCO3 ABG O2 Saturation ABG Base Excess POC ABG pCO2 ABG Hemoglobin ABG Oxyhemoglobin ABG Chloride ABG Glucose Oxyhemoglobin Sodium Potassium Chloride Carbon Dioxide BUN Creatinine Glucose POC Glucose 124 H 130 H 138 H Lactic Acid Calcium Phosphorus Magnesium AST ALT Lactate Dehydrogenase Total Bilirubin Direct Bilirubin CK-MB (CK-2) C-Reactive Protein NT-Pro-B Natriuret Pep Total Protein Albumin Arterial Blood Glucose Urine WBC (Auto) Urine Creatinine 01/08/20 01/08/20 01/08/20 09:28 11:42 18:21 WBC RBC Hgb Hct MCHC RDW MCV MCH Lymph % (Auto) [place] % (Auto) [place] # Eos # Lymph # (Auto) [place] # (Auto) Eos # (Auto) Seg Neutrophils % Seg Neuts % (Manual) Baso # (Auto) Lymphocytes % (Manual) Monocytes % (Manual) Eosinophils % (Manual) Basophils % (Manual) Seg Neutrophils # Seg Neutrophils # Man Lymphocytes # (Manual) Monocytes # (Manual) Eosinophils # (Manual) Nucleated RBC % Basophils # (Manual) PT INR APTT Heparin Anti-Xa Level ABG pH POC ABG pO2 ABG pO2 ABG HCO3 ABG O2 Saturation ABG Base Excess POC ABG pCO2 ABG Hemoglobin ABG Oxyhemoglobin ABG Chloride ABG Glucose Oxyhemoglobin Sodium Potassium Chloride Carbon Dioxide BUN Creatinine Glucose POC Glucose 181 H 150 H 129 H Lactic Acid Calcium Phosphorus Magnesium AST ALT Lactate Dehydrogenase Total Bilirubin Direct Bilirubin CK-MB (CK-2) C-Reactive Protein NT-Pro-B Natriuret Pep Total Protein Albumin Arterial Blood Glucose Urine WBC (Auto) Urine Creatinine 01/08/20 01/08/20 01/09/20 19:25 23:55 04:11 WBC RBC 3.43 L Hgb 8.9 L Hct 28.7 L MCHC 31 L RDW 17.6 H MCV MCH 26 L Lymph % (Auto) [place] % (Auto) 8.6 H [place] # Eos # Lymph # (Auto) [place] # (Auto) Eos # (Auto) Seg Neutrophils % Seg Neuts % (Manual) Baso # (Auto) Lymphocytes % (Manual) Monocytes % (Manual) Eosinophils % (Manual) Basophils % (Manual) Seg Neutrophils # Seg Neutrophils # Man Lymphocytes # (Manual) Monocytes # (Manual) Eosinophils # (Manual) Nucleated RBC % Basophils # (Manual) PT INR APTT Heparin Anti-Xa Level ABG pH POC ABG pO2 ABG pO2 ABG HCO3 ABG O2 Saturation ABG Base Excess POC ABG pCO2 ABG Hemoglobin ABG Oxyhemoglobin ABG Chloride ABG Glucose Oxyhemoglobin Sodium Potassium Chloride Carbon Dioxide BUN Creatinine 0.7 L Glucose 117 H POC Glucose 132 H Lactic Acid Calcium Phosphorus Magnesium AST ALT Lactate Dehydrogenase Total Bilirubin Direct Bilirubin CK-MB (CK-2) C-Reactive Protein NT-Pro-B Natriuret Pep Total Protein Albumin Arterial Blood Glucose Urine WBC (Auto) Urine Creatinine 01/09/20 01/09/20 01/09/20 04:11 05:38 22:58 WBC RBC Hgb Hct MCHC RDW MCV MCH Lymph % (Auto) [place] % (Auto) [place] # Eos # Lymph # (Auto) [place] # (Auto) Eos # (Auto) Seg Neutrophils % Seg Neuts % (Manual) Baso # (Auto) Lymphocytes % (Manual) Monocytes % (Manual) Eosinophils % (Manual) Basophils % (Manual) Seg Neutrophils # Seg Neutrophils # Man Lymphocytes # (Manual) Monocytes # (Manual) Eosinophils # (Manual) Nucleated RBC % Basophils # (Manual) PT INR APTT Heparin Anti-Xa Level ABG pH POC ABG pO2 ABG pO2 ABG HCO3 ABG O2 Saturation ABG Base Excess POC ABG pCO2 ABG Hemoglobin ABG Oxyhemoglobin ABG Chloride ABG Glucose Oxyhemoglobin Sodium 147 H Potassium 3.3 L D Chloride Carbon Dioxide 32 H BUN Creatinine 0.6 L Glucose 106 H POC Glucose 107 H 113 H Lactic Acid Calcium Phosphorus Magnesium AST ALT Lactate Dehydrogenase Total Bilirubin Direct Bilirubin CK-MB (CK-2) C-Reactive Protein NT-Pro-B Natriuret Pep Total Protein Albumin Arterial Blood Glucose Urine WBC (Auto) Urine Creatinine 01/10/20 01/10/20 01/10/20 04:05 11:36 17:54 WBC RBC Hgb Hct MCHC RDW MCV MCH Lymph % (Auto) [place] % (Auto) [place] # Eos # Lymph # (Auto) [place] # (Auto) Eos # (Auto) Seg Neutrophils % Seg Neuts % (Manual) Baso # (Auto) Lymphocytes % (Manual) Monocytes % (Manual) Eosinophils % (Manual) Basophils % (Manual) Seg Neutrophils # Seg Neutrophils # Man Lymphocytes # (Manual) Monocytes # (Manual) Eosinophils # (Manual) Nucleated RBC % Basophils # (Manual) PT INR APTT Heparin Anti-Xa Level ABG pH POC ABG pO2 ABG pO2 ABG HCO3 ABG O2 Saturation ABG Base Excess POC ABG pCO2 ABG Hemoglobin ABG Oxyhemoglobin ABG Chloride ABG Glucose Oxyhemoglobin Sodium Potassium Chloride Carbon Dioxide BUN Creatinine 0.7 L Glucose 110 H POC Glucose 129 H 117 H Lactic Acid Calcium Phosphorus Magnesium AST ALT Lactate Dehydrogenase Total Bilirubin Direct Bilirubin CK-MB (CK-2) C-Reactive Protein NT-Pro-B Natriuret Pep Total Protein Albumin Arterial Blood Glucose Urine WBC (Auto) Urine Creatinine 01/10/20 01/11/20 01/11/20 23:52 03:19 12:09 WBC RBC Hgb Hct MCHC RDW MCV MCH Lymph % (Auto) [place] % (Auto) [place] # Eos # Lymph # (Auto) [place] # (Auto) Eos # (Auto) Seg Neutrophils % Seg Neuts % (Manual) Baso # (Auto) Lymphocytes % (Manual) Monocytes % (Manual) Eosinophils % (Manual) Basophils % (Manual) Seg Neutrophils # Seg Neutrophils # Man Lymphocytes # (Manual) Monocytes # (Manual) Eosinophils # (Manual) Nucleated RBC % Basophils # (Manual) PT INR APTT Heparin Anti-Xa Level ABG pH POC ABG pO2 ABG pO2 ABG HCO3 ABG O2 Saturation ABG Base Excess POC ABG pCO2 ABG Hemoglobin ABG Oxyhemoglobin ABG Chloride ABG Glucose Oxyhemoglobin Sodium Potassium Chloride Carbon Dioxide BUN Creatinine Glucose POC Glucose 117 H 136 H 115 H Lactic Acid Calcium Phosphorus Magnesium AST ALT Lactate Dehydrogenase Total Bilirubin Direct Bilirubin CK-MB (CK-2) C-Reactive Protein NT-Pro-B Natriuret Pep Total Protein Albumin Arterial Blood Glucose Urine WBC (Auto) Urine Creatinine 01/11/20 01/11/20 01/12/20 18:27 23:28 00:23 WBC RBC Hgb 9.8 L Hct 31.6 L MCHC 31 L RDW 17.8 H MCV 83 L MCH 26 L Lymph % (Auto) [place] % (Auto) 8.0 H [place] # Eos # Lymph # (Auto) [place] # (Auto) Eos # (Auto) Seg Neutrophils % Seg Neuts % (Manual) Baso # (Auto) Lymphocytes % (Manual) Monocytes % (Manual) Eosinophils % (Manual) Basophils % (Manual) Seg Neutrophils # Seg Neutrophils # Man Lymphocytes # (Manual) Monocytes # (Manual) Eosinophils # (Manual) Nucleated RBC % Basophils # (Manual) PT INR APTT Heparin Anti-Xa Level ABG pH POC ABG pO2 ABG pO2 ABG HCO3 ABG O2 Saturation ABG Base Excess POC ABG pCO2 ABG Hemoglobin ABG Oxyhemoglobin ABG Chloride ABG Glucose Oxyhemoglobin Sodium Potassium Chloride Carbon Dioxide BUN Creatinine Glucose POC Glucose 118 H 122 H Lactic Acid Calcium Phosphorus Magnesium AST ALT Lactate Dehydrogenase Total Bilirubin Direct Bilirubin CK-MB (CK-2) C-Reactive Protein NT-Pro-B Natriuret Pep Total Protein Albumin Arterial Blood Glucose Urine WBC (Auto) Urine Creatinine 01/12/20 01/12/20 01/12/20 00:23 04:18 04:18 WBC RBC Hgb 9.6 L Hct 30.9 L MCHC 31 L RDW 17.3 H MCV 81 L MCH 25 L Lymph % (Auto) [place] % (Auto) [place] # Eos # Lymph # (Auto) [place] # (Auto) Eos # (Auto) Seg Neutrophils % Seg Neuts % (Manual) Baso # (Auto) Lymphocytes % (Manual) Monocytes % (Manual) Eosinophils % (Manual) Basophils % (Manual) Seg Neutrophils # Seg Neutrophils # Man Lymphocytes # (Manual) Monocytes # (Manual) Eosinophils # (Manual) Nucleated RBC % Basophils # (Manual) PT INR APTT Heparin Anti-Xa Level ABG pH POC ABG pO2 ABG pO2 ABG HCO3 ABG O2 Saturation ABG Base Excess POC ABG pCO2 ABG Hemoglobin ABG Oxyhemoglobin ABG Chloride ABG Glucose Oxyhemoglobin Sodium Potassium Chloride Carbon Dioxide BUN Creatinine 0.7 L 0.7 L Glucose 111 H 108 H POC Glucose Lactic Acid Calcium Phosphorus Magnesium AST ALT Lactate Dehydrogenase Total Bilirubin Direct Bilirubin CK-MB (CK-2) C-Reactive Protein NT-Pro-B Natriuret Pep Total Protein Albumin 2.6 L Arterial Blood Glucose Urine WBC (Auto) Urine Creatinine 01/12/20 01/12/20 01/12/20 06:03 12:27 13:58 WBC RBC Hgb Hct MCHC RDW MCV MCH Lymph % (Auto) [place] % (Auto) [place] # Eos # Lymph # (Auto) [place] # (Auto) Eos # (Auto) Seg Neutrophils % Seg Neuts % (Manual) Baso # (Auto) Lymphocytes % (Manual) Monocytes % (Manual) Eosinophils % (Manual) Basophils % (Manual) Seg Neutrophils # Seg Neutrophils # Man Lymphocytes # (Manual) Monocytes # (Manual) Eosinophils # (Manual) Nucleated RBC % Basophils # (Manual) PT INR APTT Heparin Anti-Xa Level ABG pH 7.453 H POC ABG pO2 76.6 L ABG pO2 ABG HCO3 ABG O2 Saturation ABG Base Excess POC ABG pCO2 ABG Hemoglobin 10.3 L ABG Oxyhemoglobin ABG Chloride ABG Glucose 99 H Oxyhemoglobin Sodium Potassium Chloride Carbon Dioxide BUN Creatinine Glucose POC Glucose 128 H 121 H Lactic Acid Calcium Phosphorus Magnesium AST ALT Lactate Dehydrogenase Total Bilirubin Direct Bilirubin CK-MB (CK-2) C-Reactive Protein NT-Pro-B Natriuret Pep Total Protein Albumin Arterial Blood Glucose 99 H Urine WBC (Auto) Urine Creatinine 01/12/20 01/13/20 01/13/20 18:24 12:01 17:46 WBC RBC Hgb Hct MCHC RDW MCV MCH Lymph % (Auto) [place] % (Auto) [place] # Eos # Lymph # (Auto) [place] # (Auto) Eos # (Auto) Seg Neutrophils % Seg Neuts % (Manual) Baso # (Auto) Lymphocytes % (Manual) Monocytes % (Manual) Eosinophils % (Manual) Basophils % (Manual) Seg Neutrophils # Seg Neutrophils # Man Lymphocytes # (Manual) Monocytes # (Manual) Eosinophils # (Manual) Nucleated RBC % Basophils # (Manual) PT INR APTT Heparin Anti-Xa Level ABG pH POC ABG pO2 ABG pO2 ABG HCO3 ABG O2 Saturation ABG Base Excess POC ABG pCO2 ABG Hemoglobin ABG Oxyhemoglobin ABG Chloride ABG Glucose Oxyhemoglobin Sodium Potassium Chloride Carbon Dioxide BUN Creatinine Glucose POC Glucose 119 H 107 H 124 H Lactic Acid Calcium Phosphorus Magnesium AST ALT Lactate Dehydrogenase Total Bilirubin Direct Bilirubin CK-MB (CK-2) C-Reactive Protein NT-Pro-B Natriuret Pep Total Protein Albumin Arterial Blood Glucose Urine WBC (Auto) Urine Creatinine 01/13/20 01/14/20 01/14/20 20:40 00:10 05:33 WBC RBC Hgb Hct MCHC RDW MCV MCH Lymph % (Auto) [place] % (Auto) [place] # Eos # Lymph # (Auto) [place] # (Auto) Eos # (Auto) Seg Neutrophils % Seg Neuts % (Manual) Baso # (Auto) Lymphocytes % (Manual) Monocytes % (Manual) Eosinophils % (Manual) Basophils % (Manual) Seg Neutrophils # Seg Neutrophils # Man Lymphocytes # (Manual) Monocytes # (Manual) Eosinophils # (Manual) Nucleated RBC % Basophils # (Manual) PT INR APTT Heparin Anti-Xa Level ABG pH POC ABG pO2 ABG pO2 65.3 L ABG HCO3 31.8 H ABG O2 Saturation 93.5 L ABG Base Excess 6.7 H POC ABG pCO2 ABG Hemoglobin 13.3 L ABG Oxyhemoglobin ABG Chloride ABG Glucose Oxyhemoglobin 90.9 L Sodium Potassium Chloride Carbon Dioxide BUN Creatinine Glucose POC Glucose 111 H 111 H Lactic Acid Calcium Phosphorus Magnesium AST ALT Lactate Dehydrogenase Total Bilirubin Direct Bilirubin CK-MB (CK-2) C-Reactive Protein NT-Pro-B Natriuret Pep Total Protein Albumin Arterial Blood Glucose Urine WBC (Auto) Urine Creatinine 01/14/20 01/14/20 01/14/20 12:10 16:14 16:14 WBC RBC Hgb 10.6 L Hct 34.2 L MCHC 31 L RDW 18.3 H MCV 83 L MCH 26 L Lymph % (Auto) [place] % (Auto) 7.4 H [place] # Eos # Lymph # (Auto) [place] # (Auto) Eos # (Auto) Seg Neutrophils % 71.9 H Seg Neuts % (Manual) Baso # (Auto) Lymphocytes % (Manual) Monocytes % (Manual) Eosinophils % (Manual) Basophils % (Manual) Seg Neutrophils # Seg Neutrophils # Man Lymphocytes # (Manual) Monocytes # (Manual) Eosinophils # (Manual) Nucleated RBC % Basophils # (Manual) PT INR APTT Heparin Anti-Xa Level ABG pH POC ABG pO2 ABG pO2 ABG HCO3 ABG O2 Saturation ABG Base Excess POC ABG pCO2 ABG Hemoglobin ABG Oxyhemoglobin ABG Chloride ABG Glucose Oxyhemoglobin Sodium Potassium Chloride Carbon Dioxide 31 H BUN Creatinine 0.6 L Glucose 131 H POC Glucose 139 H Lactic Acid Calcium Phosphorus Magnesium AST ALT Lactate Dehydrogenase Total Bilirubin Direct Bilirubin CK-MB (CK-2) C-Reactive Protein NT-Pro-B Natriuret Pep Total Protein Albumin Arterial Blood Glucose Urine WBC (Auto) Urine Creatinine 01/14/20 01/15/20 01/15/20 18:05 00:52 05:35 WBC RBC Hgb Hct MCHC RDW MCV MCH Lymph % (Auto) [place] % (Auto) [place] # Eos # Lymph # (Auto) [place] # (Auto) Eos # (Auto) Seg Neutrophils % Seg Neuts % (Manual) Baso # (Auto) Lymphocytes % (Manual) Monocytes % (Manual) Eosinophils % (Manual) Basophils % (Manual) Seg Neutrophils # Seg Neutrophils # Man Lymphocytes # (Manual) Monocytes # (Manual) Eosinophils # (Manual) Nucleated RBC % Basophils # (Manual) PT INR APTT Heparin Anti-Xa Level ABG pH POC ABG pO2 ABG pO2 ABG HCO3 ABG O2 Saturation ABG Base Excess POC ABG pCO2 ABG Hemoglobin ABG Oxyhemoglobin ABG Chloride ABG Glucose Oxyhemoglobin Sodium Potassium Chloride Carbon Dioxide BUN Creatinine Glucose POC Glucose 147 H 140 H 159 H Lactic Acid Calcium Phosphorus Magnesium AST ALT Lactate Dehydrogenase Total Bilirubin Direct Bilirubin CK-MB (CK-2) C-Reactive Protein NT-Pro-B Natriuret Pep Total Protein Albumin Arterial Blood Glucose Urine WBC (Auto) Urine Creatinine 01/15/20 01/15/20 01/16/20 12:52 17:43 00:32 WBC RBC Hgb Hct MCHC RDW MCV MCH Lymph % (Auto) [place] % (Auto) [place] # Eos # Lymph # (Auto) [place] # (Auto) Eos # (Auto) Seg Neutrophils % Seg Neuts % (Manual) Baso # (Auto) Lymphocytes % (Manual) Monocytes % (Manual) Eosinophils % (Manual) Basophils % (Manual) Seg Neutrophils # Seg Neutrophils # Man Lymphocytes # (Manual) Monocytes # (Manual) Eosinophils # (Manual) Nucleated RBC % Basophils # (Manual) PT INR APTT Heparin Anti-Xa Level ABG pH POC ABG pO2 ABG pO2 ABG HCO3 ABG O2 Saturation ABG Base Excess POC ABG pCO2 ABG Hemoglobin ABG Oxyhemoglobin ABG Chloride ABG Glucose Oxyhemoglobin Sodium Potassium Chloride Carbon Dioxide BUN Creatinine Glucose POC Glucose 164 H 167 H 153 H Lactic Acid Calcium Phosphorus Magnesium AST ALT Lactate Dehydrogenase Total Bilirubin Direct Bilirubin CK-MB (CK-2) C-Reactive Protein NT-Pro-B Natriuret Pep Total Protein Albumin Arterial Blood Glucose Urine WBC (Auto) Urine Creatinine 01/16/20 01/16/20 01/17/20 05:46 11:48 06:38 WBC RBC Hgb Hct MCHC RDW MCV MCH Lymph % (Auto) [place] % (Auto) [place] # Eos # Lymph # (Auto) [place] # (Auto) Eos # (Auto) Seg Neutrophils % Seg Neuts % (Manual) Baso # (Auto) Lymphocytes % (Manual) Monocytes % (Manual) Eosinophils % (Manual) Basophils % (Manual) Seg Neutrophils # Seg Neutrophils # Man Lymphocytes # (Manual) Monocytes # (Manual) Eosinophils # (Manual) Nucleated RBC % Basophils # (Manual) PT INR APTT Heparin Anti-Xa Level ABG pH POC ABG pO2 ABG pO2 ABG HCO3 ABG O2 Saturation ABG Base Excess POC ABG pCO2 ABG Hemoglobin ABG Oxyhemoglobin ABG Chloride ABG Glucose Oxyhemoglobin Sodium Potassium Chloride Carbon Dioxide BUN Creatinine Glucose POC Glucose 163 H 155 H 116 H Lactic Acid Calcium Phosphorus Magnesium AST ALT Lactate Dehydrogenase Total Bilirubin Direct Bilirubin CK-MB (CK-2) C-Reactive Protein NT-Pro-B Natriuret Pep Total Protein Albumin Arterial Blood Glucose Urine WBC (Auto) Urine Creatinine 01/17/20 01/17/20 01/18/20 11:36 17:43 00:12 WBC RBC Hgb Hct MCHC RDW MCV MCH Lymph % (Auto) [place] % (Auto) [place] # Eos # Lymph # (Auto) [place] # (Auto) Eos # (Auto) Seg Neutrophils % Seg Neuts % (Manual) Baso # (Auto) Lymphocytes % (Manual) Monocytes % (Manual) Eosinophils % (Manual) Basophils % (Manual) Seg Neutrophils # Seg Neutrophils # Man Lymphocytes # (Manual) Monocytes # (Manual) Eosinophils # (Manual) Nucleated RBC % Basophils # (Manual) PT INR APTT Heparin Anti-Xa Level ABG pH POC ABG pO2 ABG pO2 ABG HCO3 ABG O2 Saturation ABG Base Excess POC ABG pCO2 ABG Hemoglobin ABG Oxyhemoglobin ABG Chloride ABG Glucose Oxyhemoglobin Sodium Potassium Chloride Carbon Dioxide BUN Creatinine Glucose POC Glucose 110 H 134 H 108 H Lactic Acid Calcium Phosphorus Magnesium AST ALT Lactate Dehydrogenase Total Bilirubin Direct Bilirubin CK-MB (CK-2) C-Reactive Protein NT-Pro-B Natriuret Pep Total Protein Albumin Arterial Blood Glucose Urine WBC (Auto) Urine Creatinine 01/18/20 01/18/20 01/18/20 05:37 06:46 06:46 WBC RBC Hgb 10.1 L Hct 32.2 L MCHC 31 L RDW 18.1 H MCV 81 L MCH 25 L Lymph % (Auto) [place] % (Auto) [place] # Eos # Lymph # (Auto) [place] # (Auto) Eos # (Auto) Seg Neutrophils % 71.9 H Seg Neuts % (Manual) Baso # (Auto) Lymphocytes % (Manual) Monocytes % (Manual) Eosinophils % (Manual) Basophils % (Manual) Seg Neutrophils # Seg Neutrophils # Man Lymphocytes # (Manual) Monocytes # (Manual) Eosinophils # (Manual) Nucleated RBC % Basophils # (Manual) PT INR APTT Heparin Anti-Xa Level ABG pH POC ABG pO2 ABG pO2 ABG HCO3 ABG O2 Saturation ABG Base Excess POC ABG pCO2 ABG Hemoglobin ABG Oxyhemoglobin ABG Chloride ABG Glucose Oxyhemoglobin Sodium Potassium Chloride Carbon Dioxide BUN Creatinine 0.7 L Glucose 155 H POC Glucose 168 H Lactic Acid Calcium Phosphorus Magnesium AST ALT Lactate Dehydrogenase Total Bilirubin Direct Bilirubin CK-MB (CK-2) C-Reactive Protein NT-Pro-B Natriuret Pep Total Protein Albumin Arterial Blood Glucose Urine WBC (Auto) Urine Creatinine 01/18/20 01/18/20 01/18/20 12:05 17:14 23:28 WBC RBC Hgb Hct MCHC RDW MCV MCH Lymph % (Auto) [place] % (Auto) [place] # Eos # Lymph # (Auto) [place] # (Auto) Eos # (Auto) Seg Neutrophils % Seg Neuts % (Manual) Baso # (Auto) Lymphocytes % (Manual) Monocytes % (Manual) Eosinophils % (Manual) Basophils % (Manual) Seg Neutrophils # Seg Neutrophils # Man Lymphocytes # (Manual) Monocytes # (Manual) Eosinophils # (Manual) Nucleated RBC % Basophils # (Manual) PT INR APTT Heparin Anti-Xa Level ABG pH POC ABG pO2 ABG pO2 ABG HCO3 ABG O2 Saturation ABG Base Excess POC ABG pCO2 ABG Hemoglobin ABG Oxyhemoglobin ABG Chloride ABG Glucose Oxyhemoglobin Sodium Potassium Chloride Carbon Dioxide BUN Creatinine Glucose POC Glucose 128 H 126 H 128 H Lactic Acid Calcium Phosphorus Magnesium AST ALT Lactate Dehydrogenase Total Bilirubin Direct Bilirubin CK-MB (CK-2) C-Reactive Protein NT-Pro-B Natriuret Pep Total Protein Albumin Arterial Blood Glucose Urine WBC (Auto) Urine Creatinine 01/19/20 01/19/20 01/19/20 05:39 12:33 17:36 WBC RBC Hgb Hct MCHC RDW MCV MCH Lymph % (Auto) [place] % (Auto) [place] # Eos # Lymph # (Auto) [place] # (Auto) Eos # (Auto) Seg Neutrophils % Seg Neuts % (Manual) Baso # (Auto) Lymphocytes % (Manual) Monocytes % (Manual) Eosinophils % (Manual) Basophils % (Manual) Seg Neutrophils # Seg Neutrophils # Man Lymphocytes # (Manual) Monocytes # (Manual) Eosinophils # (Manual) Nucleated RBC % Basophils # (Manual) PT INR APTT Heparin Anti-Xa Level ABG pH POC ABG pO2 ABG pO2 ABG HCO3 ABG O2 Saturation ABG Base Excess POC ABG pCO2 ABG Hemoglobin ABG Oxyhemoglobin ABG Chloride ABG Glucose Oxyhemoglobin Sodium Potassium Chloride Carbon Dioxide BUN Creatinine Glucose POC Glucose 164 H 171 H 152 H Lactic Acid Calcium Phosphorus Magnesium AST ALT Lactate Dehydrogenase Total Bilirubin Direct Bilirubin CK-MB (CK-2) C-Reactive Protein NT-Pro-B Natriuret Pep Total Protein Albumin Arterial Blood Glucose Urine WBC (Auto) Urine Creatinine 01/20/20 01/20/20 01/20/20 00:12 05:20 05:35 WBC RBC Hgb 9.2 L Hct 29.4 L MCHC 31 L RDW 17.9 H MCV 81 L MCH 25 L Lymph % (Auto) [place] % (Auto) [place] # Eos # Lymph # (Auto) [place] # (Auto) Eos # (Auto) Seg Neutrophils % Seg Neuts % (Manual) Baso # (Auto) Lymphocytes % (Manual) Monocytes % (Manual) Eosinophils % (Manual) Basophils % (Manual) Seg Neutrophils # Seg Neutrophils # Man Lymphocytes # (Manual) Monocytes # (Manual) Eosinophils # (Manual) Nucleated RBC % Basophils # (Manual) PT INR APTT Heparin Anti-Xa Level ABG pH POC ABG pO2 ABG pO2 ABG HCO3 ABG O2 Saturation ABG Base Excess POC ABG pCO2 ABG Hemoglobin ABG Oxyhemoglobin ABG Chloride ABG Glucose Oxyhemoglobin Sodium Potassium Chloride Carbon Dioxide BUN Creatinine Glucose POC Glucose 120 H 136 H Lactic Acid Calcium Phosphorus Magnesium AST ALT Lactate Dehydrogenase Total Bilirubin Direct Bilirubin CK-MB (CK-2) C-Reactive Protein NT-Pro-B Natriuret Pep Total Protein Albumin Arterial Blood Glucose Urine WBC (Auto) Urine Creatinine 01/20/20 01/20/20 01/20/20 05:40 11:58 14:55 WBC RBC Hgb 9.0 L Hct 28.3 L MCHC RDW MCV MCH Lymph % (Auto) [place] % (Auto) [place] # Eos # Lymph # (Auto) [place] # (Auto) Eos # (Auto) Seg Neutrophils % Seg Neuts % (Manual) Baso # (Auto) Lymphocytes % (Manual) Monocytes % (Manual) Eosinophils % (Manual) Basophils % (Manual) Seg Neutrophils # Seg Neutrophils # Man Lymphocytes # (Manual) Monocytes # (Manual) Eosinophils # (Manual) Nucleated RBC % Basophils # (Manual) PT INR APTT Heparin Anti-Xa Level ABG pH POC ABG pO2 ABG pO2 ABG HCO3 ABG O2 Saturation ABG Base Excess POC ABG pCO2 ABG Hemoglobin ABG Oxyhemoglobin ABG Chloride ABG Glucose Oxyhemoglobin Sodium Potassium Chloride Carbon Dioxide 32 H BUN 22 H Creatinine 0.7 L Glucose 128 H POC Glucose 152 H Lactic Acid Calcium Phosphorus Magnesium AST ALT Lactate Dehydrogenase Total Bilirubin Direct Bilirubin CK-MB (CK-2) C-Reactive Protein NT-Pro-B Natriuret Pep Total Protein Albumin Arterial Blood Glucose Urine WBC (Auto) Urine Creatinine 01/20/20 01/20/20 01/20/20 14:55 18:14 21:35 WBC RBC Hgb Hct MCHC RDW MCV MCH Lymph % (Auto) [place] % (Auto) [place] # Eos # Lymph # (Auto) [place] # (Auto) Eos # (Auto) Seg Neutrophils % Seg Neuts % (Manual) Baso # (Auto) Lymphocytes % (Manual) Monocytes % (Manual) Eosinophils % (Manual) Basophils % (Manual) Seg Neutrophils # Seg Neutrophils # Man Lymphocytes # (Manual) Monocytes # (Manual) Eosinophils # (Manual) Nucleated RBC % Basophils # (Manual) PT 20.4 H INR 1.72 H APTT 40.6 H Heparin Anti-Xa Level > 2.00 H ABG pH POC ABG pO2 ABG pO2 ABG HCO3 ABG O2 Saturation ABG Base Excess POC ABG pCO2 ABG Hemoglobin ABG Oxyhemoglobin ABG Chloride ABG Glucose Oxyhemoglobin Sodium Potassium Chloride Carbon Dioxide BUN Creatinine Glucose POC Glucose 150 H Lactic Acid Calcium Phosphorus Magnesium AST ALT Lactate Dehydrogenase Total Bilirubin Direct Bilirubin CK-MB (CK-2) C-Reactive Protein NT-Pro-B Natriuret Pep Total Protein Albumin Arterial Blood Glucose Urine WBC (Auto) Urine Creatinine 01/21/20 01/21/20 01/21/20 00:30 05:47 05:59 WBC RBC Hgb Hct MCHC RDW MCV MCH Lymph % (Auto) [place] % (Auto) [place] # Eos # Lymph # (Auto) [place] # (Auto) Eos # (Auto) Seg Neutrophils % Seg Neuts % (Manual) Baso # (Auto) Lymphocytes % (Manual) Monocytes % (Manual) Eosinophils % (Manual) Basophils % (Manual) Seg Neutrophils # Seg Neutrophils # Man Lymphocytes # (Manual) Monocytes # (Manual) Eosinophils # (Manual) Nucleated RBC % Basophils # (Manual) PT INR APTT Heparin Anti-Xa Level 1.93 H ABG pH POC ABG pO2 ABG pO2 ABG HCO3 ABG O2 Saturation ABG Base Excess POC ABG pCO2 ABG Hemoglobin ABG Oxyhemoglobin ABG Chloride ABG Glucose Oxyhemoglobin Sodium Potassium Chloride Carbon Dioxide BUN Creatinine Glucose POC Glucose 126 H 148 H Lactic Acid Calcium Phosphorus Magnesium AST ALT Lactate Dehydrogenase Total Bilirubin Direct Bilirubin CK-MB (CK-2) C-Reactive Protein NT-Pro-B Natriuret Pep Total Protein Albumin Arterial Blood Glucose Urine WBC (Auto) Urine Creatinine 01/21/20 01/21/20 01/21/20 12:32 18:20 23:54 WBC RBC Hgb Hct MCHC RDW MCV MCH Lymph % (Auto) [place] % (Auto) [place] # Eos # Lymph # (Auto) [place] # (Auto) Eos # (Auto) Seg Neutrophils % Seg Neuts % (Manual) Baso # (Auto) Lymphocytes % (Manual) Monocytes % (Manual) Eosinophils % (Manual) Basophils % (Manual) Seg Neutrophils # Seg Neutrophils # Man Lymphocytes # (Manual) Monocytes # (Manual) Eosinophils # (Manual) Nucleated RBC % Basophils # (Manual) PT INR APTT Heparin Anti-Xa Level 1.28 H ABG pH POC ABG pO2 ABG pO2 ABG HCO3 ABG O2 Saturation ABG Base Excess POC ABG pCO2 ABG Hemoglobin ABG Oxyhemoglobin ABG Chloride ABG Glucose Oxyhemoglobin Sodium Potassium Chloride Carbon Dioxide BUN Creatinine Glucose POC Glucose 112 H 146 H Lactic Acid Calcium Phosphorus Magnesium AST ALT Lactate Dehydrogenase Total Bilirubin Direct Bilirubin CK-MB (CK-2) C-Reactive Protein NT-Pro-B Natriuret Pep Total Protein Albumin Arterial Blood Glucose Urine WBC (Auto) Urine Creatinine 01/22/20 01/22/20 01/22/20 04:45 04:45 05:48 WBC RBC Hgb 9.3 L Hct 29.0 L MCHC RDW MCV MCH Lymph % (Auto) [place] % (Auto) [place] # Eos # Lymph # (Auto) [place] # (Auto) Eos # (Auto) Seg Neutrophils % Seg Neuts % (Manual) Baso # (Auto) Lymphocytes % (Manual) Monocytes % (Manual) Eosinophils % (Manual) Basophils % (Manual) Seg Neutrophils # Seg Neutrophils # Man Lymphocytes # (Manual) Monocytes # (Manual) Eosinophils # (Manual) Nucleated RBC % Basophils # (Manual) PT INR APTT Heparin Anti-Xa Level 1.34 H ABG pH POC ABG pO2 ABG pO2 ABG HCO3 ABG O2 Saturation ABG Base Excess POC ABG pCO2 ABG Hemoglobin ABG Oxyhemoglobin ABG Chloride ABG Glucose Oxyhemoglobin Sodium Potassium Chloride Carbon Dioxide BUN Creatinine Glucose POC Glucose 142 H Lactic Acid Calcium Phosphorus Magnesium AST ALT Lactate Dehydrogenase Total Bilirubin Direct Bilirubin CK-MB (CK-2) C-Reactive Protein NT-Pro-B Natriuret Pep Total Protein Albumin Arterial Blood Glucose Urine WBC (Auto) Urine Creatinine 01/22/20 01/22/20 01/22/20 08:09 08:22 09:58 WBC RBC Hgb Hct MCHC RDW MCV MCH Lymph % (Auto) [place] % (Auto) [place] # Eos # Lymph # (Auto) [place] # (Auto) Eos # (Auto) Seg Neutrophils % Seg Neuts % (Manual) Baso # (Auto) Lymphocytes % (Manual) Monocytes % (Manual) Eosinophils % (Manual) Basophils % (Manual) Seg Neutrophils # Seg Neutrophils # Man Lymphocytes # (Manual) Monocytes # (Manual) Eosinophils # (Manual) Nucleated RBC % Basophils # (Manual) PT 16.9 H INR 1.34 H APTT Heparin Anti-Xa Level ABG pH POC ABG pO2 ABG pO2 ABG HCO3 ABG O2 Saturation ABG Base Excess POC ABG pCO2 ABG Hemoglobin ABG Oxyhemoglobin ABG Chloride ABG Glucose Oxyhemoglobin Sodium Potassium Chloride 97.8 L Carbon Dioxide BUN 29 H Creatinine Glucose 128 H POC Glucose 131 H Lactic Acid Calcium Phosphorus Magnesium AST ALT Lactate Dehydrogenase Total Bilirubin Direct Bilirubin CK-MB (CK-2) C-Reactive Protein NT-Pro-B Natriuret Pep Total Protein Albumin Arterial Blood Glucose Urine WBC (Auto) Urine Creatinine 01/22/20 01/22/20 01/22/20 12:44 16:13 18:18 WBC RBC Hgb Hct MCHC RDW MCV MCH Lymph % (Auto) [place] % (Auto) [place] # Eos # Lymph # (Auto) [place] # (Auto) Eos # (Auto) Seg Neutrophils % Seg Neuts % (Manual) Baso # (Auto) Lymphocytes % (Manual) Monocytes % (Manual) Eosinophils % (Manual) Basophils % (Manual) Seg Neutrophils # Seg Neutrophils # Man Lymphocytes # (Manual) Monocytes # (Manual) Eosinophils # (Manual) Nucleated RBC % Basophils # (Manual) PT INR APTT Heparin Anti-Xa Level ABG pH POC ABG pO2 ABG pO2 ABG HCO3 ABG O2 Saturation ABG Base Excess POC ABG pCO2 ABG Hemoglobin ABG Oxyhemoglobin ABG Chloride ABG Glucose Oxyhemoglobin Sodium Potassium Chloride Carbon Dioxide BUN Creatinine Glucose POC Glucose 156 H 133 H 155 H Lactic Acid Calcium Phosphorus Magnesium AST ALT Lactate Dehydrogenase Total Bilirubin Direct Bilirubin CK-MB (CK-2) C-Reactive Protein NT-Pro-B Natriuret Pep Total Protein Albumin Arterial Blood Glucose Urine WBC (Auto) Urine Creatinine 01/22/20 01/23/20 01/23/20 23:22 05:37 12:59 WBC RBC Hgb Hct MCHC RDW MCV MCH Lymph % (Auto) [place] % (Auto) [place] # Eos # Lymph # (Auto) [place] # (Auto) Eos # (Auto) Seg Neutrophils % Seg Neuts % (Manual) Baso # (Auto) Lymphocytes % (Manual) Monocytes % (Manual) Eosinophils % (Manual) Basophils % (Manual) Seg Neutrophils # Seg Neutrophils # Man Lymphocytes # (Manual) Monocytes # (Manual) Eosinophils # (Manual) Nucleated RBC % Basophils # (Manual) PT INR APTT Heparin Anti-Xa Level ABG pH POC ABG pO2 ABG pO2 ABG HCO3 ABG O2 Saturation ABG Base Excess POC ABG pCO2 ABG Hemoglobin ABG Oxyhemoglobin ABG Chloride ABG Glucose Oxyhemoglobin Sodium Potassium Chloride Carbon Dioxide BUN Creatinine Glucose POC Glucose 148 H 163 H 175 H Lactic Acid Calcium Phosphorus Magnesium AST ALT Lactate Dehydrogenase Total Bilirubin Direct Bilirubin CK-MB (CK-2) C-Reactive Protein NT-Pro-B Natriuret Pep Total Protein Albumin Arterial Blood Glucose Urine WBC (Auto) Urine Creatinine 01/23/20 01/23/20 01/24/20 17:28 23:56 04:30 WBC RBC 3.46 L Hgb 8.8 L Hct 27.8 L MCHC RDW 18.2 H MCV 81 L MCH 25 L Lymph % (Auto) [place] % (Auto) 7.8 H [place] # Eos # Lymph # (Auto) [place] # (Auto) Eos # (Auto) Seg Neutrophils % Seg Neuts % (Manual) Baso # (Auto) Lymphocytes % (Manual) Monocytes % (Manual) Eosinophils % (Manual) Basophils % (Manual) Seg Neutrophils # Seg Neutrophils # Man Lymphocytes # (Manual) Monocytes # (Manual) Eosinophils # (Manual) Nucleated RBC % Basophils # (Manual) PT INR APTT Heparin Anti-Xa Level ABG pH POC ABG pO2 ABG pO2 ABG HCO3 ABG O2 Saturation ABG Base Excess POC ABG pCO2 ABG Hemoglobin ABG Oxyhemoglobin ABG Chloride ABG Glucose Oxyhemoglobin Sodium Potassium Chloride Carbon Dioxide BUN Creatinine Glucose POC Glucose 165 H 177 H Lactic Acid Calcium Phosphorus Magnesium AST ALT Lactate Dehydrogenase Total Bilirubin Direct Bilirubin CK-MB (CK-2) C-Reactive Protein NT-Pro-B Natriuret Pep Total Protein Albumin Arterial Blood Glucose Urine WBC (Auto) Urine Creatinine 01/24/20 01/24/20 01/24/20 04:30 07:18 12:06 WBC RBC Hgb Hct MCHC RDW MCV MCH Lymph % (Auto) [place] % (Auto) [place] # Eos # Lymph # (Auto) [place] # (Auto) Eos # (Auto) Seg Neutrophils % Seg Neuts % (Manual) Baso # (Auto) Lymphocytes % (Manual) Monocytes % (Manual) Eosinophils % (Manual) Basophils % (Manual) Seg Neutrophils # Seg Neutrophils # Man Lymphocytes # (Manual) Monocytes # (Manual) Eosinophils # (Manual) Nucleated RBC % Basophils # (Manual) PT INR APTT Heparin Anti-Xa Level ABG pH POC ABG pO2 ABG pO2 ABG HCO3 ABG O2 Saturation ABG Base Excess POC ABG pCO2 ABG Hemoglobin ABG Oxyhemoglobin ABG Chloride ABG Glucose Oxyhemoglobin Sodium Potassium Chloride 97.9 L Carbon Dioxide BUN 31 H Creatinine Glucose 146 H POC Glucose 151 H 133 H Lactic Acid Calcium Phosphorus Magnesium AST ALT Lactate Dehydrogenase Total Bilirubin Direct Bilirubin CK-MB (CK-2) C-Reactive Protein NT-Pro-B Natriuret Pep Total Protein Albumin Arterial Blood Glucose Urine WBC (Auto) Urine Creatinine 01/24/20 01/25/20 01/25/20 17:36 00:08 04:25 WBC RBC 3.50 L Hgb 8.7 L Hct 27.9 L MCHC 31 L RDW 18.2 H MCV 80 L MCH 25 L Lymph % (Auto) [place] % (Auto) 8.5 H [place] # Eos # Lymph # (Auto) [place] # (Auto) Eos # (Auto) Seg Neutrophils % Seg Neuts % (Manual) Baso # (Auto) Lymphocytes % (Manual) Monocytes % (Manual) Eosinophils % (Manual) Basophils % (Manual) Seg Neutrophils # Seg Neutrophils # Man Lymphocytes # (Manual) Monocytes # (Manual) Eosinophils # (Manual) Nucleated RBC % Basophils # (Manual) PT INR APTT Heparin Anti-Xa Level ABG pH POC ABG pO2 ABG pO2 ABG HCO3 ABG O2 Saturation ABG Base Excess POC ABG pCO2 ABG Hemoglobin ABG Oxyhemoglobin ABG Chloride ABG Glucose Oxyhemoglobin Sodium Potassium Chloride Carbon Dioxide BUN Creatinine Glucose POC Glucose 133 H 129 H Lactic Acid Calcium Phosphorus Magnesium AST ALT Lactate Dehydrogenase Total Bilirubin Direct Bilirubin CK-MB (CK-2) C-Reactive Protein NT-Pro-B Natriuret Pep Total Protein Albumin Arterial Blood Glucose Urine WBC (Auto) Urine Creatinine 01/25/20 01/25/20 01/25/20 04:25 05:38 11:52 WBC RBC Hgb Hct MCHC RDW MCV MCH Lymph % (Auto) [place] % (Auto) [place] # Eos # Lymph # (Auto) [place] # (Auto) Eos # (Auto) Seg Neutrophils % Seg Neuts % (Manual) Baso # (Auto) Lymphocytes % (Manual) Monocytes % (Manual) Eosinophils % (Manual) Basophils % (Manual) Seg Neutrophils # Seg Neutrophils # Man Lymphocytes # (Manual) Monocytes # (Manual) Eosinophils # (Manual) Nucleated RBC % Basophils # (Manual) PT INR APTT Heparin Anti-Xa Level ABG pH POC ABG pO2 ABG pO2 ABG HCO3 ABG O2 Saturation ABG Base Excess POC ABG pCO2 ABG Hemoglobin ABG Oxyhemoglobin ABG Chloride ABG Glucose Oxyhemoglobin Sodium Potassium Chloride Carbon Dioxide BUN 30 H Creatinine Glucose 134 H POC Glucose 129 H 134 H Lactic Acid Calcium Phosphorus Magnesium AST ALT Lactate Dehydrogenase Total Bilirubin Direct Bilirubin CK-MB (CK-2) C-Reactive Protein NT-Pro-B Natriuret Pep Total Protein Albumin Arterial Blood Glucose Urine WBC (Auto) Urine Creatinine 01/25/20 01/25/20 01/26/20 17:13 21:02 00:59 WBC RBC Hgb Hct MCHC RDW MCV MCH Lymph % (Auto) [place] % (Auto) [place] # Eos # Lymph # (Auto) [place] # (Auto) Eos # (Auto) Seg Neutrophils % Seg Neuts % (Manual) Baso # (Auto) Lymphocytes % (Manual) Monocytes % (Manual) Eosinophils % (Manual) Basophils % (Manual) Seg Neutrophils # Seg Neutrophils # Man Lymphocytes # (Manual) Monocytes # (Manual) Eosinophils # (Manual) Nucleated RBC % Basophils # (Manual) PT INR APTT Heparin Anti-Xa Level ABG pH POC ABG pO2 ABG pO2 57.5 L ABG HCO3 31.7 H ABG O2 Saturation 90.3 L ABG Base Excess 6.6 H POC ABG pCO2 ABG Hemoglobin 13.0 L ABG Oxyhemoglobin ABG Chloride ABG Glucose Oxyhemoglobin 87.5 L Sodium Potassium Chloride Carbon Dioxide BUN Creatinine Glucose POC Glucose 124 H 196 H Lactic Acid Calcium Phosphorus Magnesium AST ALT Lactate Dehydrogenase Total Bilirubin Direct Bilirubin CK-MB (CK-2) C-Reactive Protein NT-Pro-B Natriuret Pep Total Protein Albumin Arterial Blood Glucose Urine WBC (Auto) Urine Creatinine 01/26/20 01/26/20 01/26/20 03:20 05:46 12:46 WBC RBC Hgb 9.2 L Hct 29.4 L MCHC RDW MCV MCH Lymph % (Auto) [place] % (Auto) [place] # Eos # Lymph # (Auto) [place] # (Auto) Eos # (Auto) Seg Neutrophils % Seg Neuts % (Manual) Baso # (Auto) Lymphocytes % (Manual) Monocytes % (Manual) Eosinophils % (Manual) Basophils % (Manual) Seg Neutrophils # Seg Neutrophils # Man Lymphocytes # (Manual) Monocytes # (Manual) Eosinophils # (Manual) Nucleated RBC % Basophils # (Manual) PT INR APTT Heparin Anti-Xa Level ABG pH POC ABG pO2 ABG pO2 ABG HCO3 ABG O2 Saturation ABG Base Excess POC ABG pCO2 ABG Hemoglobin ABG Oxyhemoglobin ABG Chloride ABG Glucose Oxyhemoglobin Sodium Potassium Chloride Carbon Dioxide BUN Creatinine Glucose POC Glucose 141 H 122 H Lactic Acid Calcium Phosphorus Magnesium AST ALT Lactate Dehydrogenase Total Bilirubin Direct Bilirubin CK-MB (CK-2) C-Reactive Protein NT-Pro-B Natriuret Pep Total Protein Albumin Arterial Blood Glucose Urine WBC (Auto) Urine Creatinine 01/26/20 01/26/20 01/27/20 18:03 23:55 04:47 WBC RBC Hgb Hct MCHC RDW MCV MCH Lymph % (Auto) [place] % (Auto) [place] # Eos # Lymph # (Auto) [place] # (Auto) Eos # (Auto) Seg Neutrophils % Seg Neuts % (Manual) Baso # (Auto) Lymphocytes % (Manual) Monocytes % (Manual) Eosinophils % (Manual) Basophils % (Manual) Seg Neutrophils # Seg Neutrophils # Man Lymphocytes # (Manual) Monocytes # (Manual) Eosinophils # (Manual) Nucleated RBC % Basophils # (Manual) PT INR APTT Heparin Anti-Xa Level ABG pH POC ABG pO2 ABG pO2 ABG HCO3 ABG O2 Saturation ABG Base Excess POC ABG pCO2 ABG Hemoglobin ABG Oxyhemoglobin ABG Chloride ABG Glucose Oxyhemoglobin Sodium Potassium Chloride Carbon Dioxide BUN 30 H Creatinine 0.7 L Glucose 135 H POC Glucose 142 H 159 H Lactic Acid Calcium Phosphorus Magnesium AST ALT Lactate Dehydrogenase Total Bilirubin Direct Bilirubin CK-MB (CK-2) C-Reactive Protein NT-Pro-B Natriuret Pep Total Protein Albumin Arterial Blood Glucose Urine WBC (Auto) Urine Creatinine 01/27/20 01/27/20 01/27/20 05:43 12:06 17:16 WBC RBC Hgb Hct MCHC RDW MCV MCH Lymph % (Auto) [place] % (Auto) [place] # Eos # Lymph # (Auto) [place] # (Auto) Eos # (Auto) Seg Neutrophils % Seg Neuts % (Manual) Baso # (Auto) Lymphocytes % (Manual) Monocytes % (Manual) Eosinophils % (Manual) Basophils % (Manual) Seg Neutrophils # Seg Neutrophils # Man Lymphocytes # (Manual) Monocytes # (Manual) Eosinophils # (Manual) Nucleated RBC % Basophils # (Manual) PT INR APTT Heparin Anti-Xa Level ABG pH POC ABG pO2 ABG pO2 ABG HCO3 ABG O2 Saturation ABG Base Excess POC ABG pCO2 ABG Hemoglobin ABG Oxyhemoglobin ABG Chloride ABG Glucose Oxyhemoglobin Sodium Potassium Chloride Carbon Dioxide BUN Creatinine Glucose POC Glucose 143 H 142 H 128 H Lactic Acid Calcium Phosphorus Magnesium AST ALT Lactate Dehydrogenase Total Bilirubin Direct Bilirubin CK-MB (CK-2) C-Reactive Protein NT-Pro-B Natriuret Pep Total Protein Albumin Arterial Blood Glucose Urine WBC (Auto) Urine Creatinine 01/27/20 01/28/20 01/28/20 23:55 04:37 05:55 WBC RBC Hgb 9.4 L Hct 29.9 L MCHC RDW MCV MCH Lymph % (Auto) [place] % (Auto) [place] # Eos # Lymph # (Auto) [place] # (Auto) Eos # (Auto) Seg Neutrophils % Seg Neuts % (Manual) Baso # (Auto) Lymphocytes % (Manual) Monocytes % (Manual) Eosinophils % (Manual) Basophils % (Manual) Seg Neutrophils # Seg Neutrophils # Man Lymphocytes # (Manual) Monocytes # (Manual) Eosinophils # (Manual) Nucleated RBC % Basophils # (Manual) PT INR APTT Heparin Anti-Xa Level ABG pH POC ABG pO2 ABG pO2 ABG HCO3 ABG O2 Saturation ABG Base Excess POC ABG pCO2 ABG Hemoglobin ABG Oxyhemoglobin ABG Chloride ABG Glucose Oxyhemoglobin Sodium Potassium Chloride Carbon Dioxide BUN Creatinine Glucose POC Glucose 166 H 169 H Lactic Acid Calcium Phosphorus Magnesium AST ALT Lactate Dehydrogenase Total Bilirubin Direct Bilirubin CK-MB (CK-2) C-Reactive Protein NT-Pro-B Natriuret Pep Total Protein Albumin Arterial Blood Glucose Urine WBC (Auto) Urine Creatinine 01/28/20 01/28/20 01/28/20 11:58 17:26 23:46 WBC RBC Hgb Hct MCHC RDW MCV MCH Lymph % (Auto) [place] % (Auto) [place] # Eos # Lymph # (Auto) [place] # (Auto) Eos # (Auto) Seg Neutrophils % Seg Neuts % (Manual) Baso # (Auto) Lymphocytes % (Manual) Monocytes % (Manual) Eosinophils % (Manual) Basophils % (Manual) Seg Neutrophils # Seg Neutrophils # Man Lymphocytes # (Manual) Monocytes # (Manual) Eosinophils # (Manual) Nucleated RBC % Basophils # (Manual) PT INR APTT Heparin Anti-Xa Level ABG pH POC ABG pO2 ABG pO2 ABG HCO3 ABG O2 Saturation ABG Base Excess POC ABG pCO2 ABG Hemoglobin ABG Oxyhemoglobin ABG Chloride ABG Glucose Oxyhemoglobin Sodium Potassium Chloride Carbon Dioxide BUN Creatinine Glucose POC Glucose 130 H 126 H 150 H Lactic Acid Calcium Phosphorus Magnesium AST ALT Lactate Dehydrogenase Total Bilirubin Direct Bilirubin CK-MB (CK-2) C-Reactive Protein NT-Pro-B Natriuret Pep Total Protein Albumin Arterial Blood Glucose Urine WBC (Auto) Urine Creatinine 01/29/20 01/29/20 01/29/20 04:55 06:00 12:28 WBC RBC Hgb Hct MCHC RDW MCV MCH Lymph % (Auto) [place] % (Auto) [place] # Eos # Lymph # (Auto) [place] # (Auto) Eos # (Auto) Seg Neutrophils % Seg Neuts % (Manual) Baso # (Auto) Lymphocytes % (Manual) Monocytes % (Manual) Eosinophils % (Manual) Basophils % (Manual) Seg Neutrophils # Seg Neutrophils # Man Lymphocytes # (Manual) Monocytes # (Manual) Eosinophils # (Manual) Nucleated RBC % Basophils # (Manual) PT INR APTT Heparin Anti-Xa Level ABG pH POC ABG pO2 ABG pO2 ABG HCO3 ABG O2 Saturation ABG Base Excess POC ABG pCO2 ABG Hemoglobin ABG Oxyhemoglobin ABG Chloride ABG Glucose Oxyhemoglobin Sodium Potassium Chloride Carbon Dioxide 34 H BUN Creatinine 0.6 L Glucose 152 H POC Glucose 157 H 156 H Lactic Acid Calcium Phosphorus Magnesium AST ALT Lactate Dehydrogenase Total Bilirubin Direct Bilirubin CK-MB (CK-2) C-Reactive Protein NT-Pro-B Natriuret Pep Total Protein Albumin Arterial Blood Glucose Urine WBC (Auto) Urine Creatinine 01/29/20 01/30/20 01/30/20 19:06 00:29 05:39 WBC RBC Hgb Hct MCHC RDW MCV MCH Lymph % (Auto) [place] % (Auto) [place] # Eos # Lymph # (Auto) [place] # (Auto) Eos # (Auto) Seg Neutrophils % Seg Neuts % (Manual) Baso # (Auto) Lymphocytes % (Manual) Monocytes % (Manual) Eosinophils % (Manual) Basophils % (Manual) Seg Neutrophils # Seg Neutrophils # Man Lymphocytes # (Manual) Monocytes # (Manual) Eosinophils # (Manual) Nucleated RBC % Basophils # (Manual) PT INR APTT Heparin Anti-Xa Level ABG pH POC ABG pO2 ABG pO2 ABG HCO3 ABG O2 Saturation ABG Base Excess POC ABG pCO2 ABG Hemoglobin ABG Oxyhemoglobin ABG Chloride ABG Glucose Oxyhemoglobin Sodium Potassium Chloride Carbon Dioxide BUN Creatinine Glucose POC Glucose 152 H 132 H 159 H Lactic Acid Calcium Phosphorus Magnesium AST ALT Lactate Dehydrogenase Total Bilirubin Direct Bilirubin CK-MB (CK-2) C-Reactive Protein NT-Pro-B Natriuret Pep Total Protein Albumin Arterial Blood Glucose Urine WBC (Auto) Urine Creatinine 01/30/20 01/30/20 01/30/20 12:27 17:42 23:28 WBC RBC Hgb Hct MCHC RDW MCV MCH Lymph % (Auto) [place] % (Auto) [place] # Eos # Lymph # (Auto) [place] # (Auto) Eos # (Auto) Seg Neutrophils % Seg Neuts % (Manual) Baso # (Auto) Lymphocytes % (Manual) Monocytes % (Manual) Eosinophils % (Manual) Basophils % (Manual) Seg Neutrophils # Seg Neutrophils # Man Lymphocytes # (Manual) Monocytes # (Manual) Eosinophils # (Manual) Nucleated RBC % Basophils # (Manual) PT INR APTT Heparin Anti-Xa Level ABG pH POC ABG pO2 ABG pO2 ABG HCO3 ABG O2 Saturation ABG Base Excess POC ABG pCO2 ABG Hemoglobin ABG Oxyhemoglobin ABG Chloride ABG Glucose Oxyhemoglobin Sodium Potassium Chloride Carbon Dioxide BUN Creatinine Glucose POC Glucose 151 H 144 H 164 H Lactic Acid Calcium Phosphorus Magnesium AST ALT Lactate Dehydrogenase Total Bilirubin Direct Bilirubin CK-MB (CK-2) C-Reactive Protein NT-Pro-B Natriuret Pep Total Protein Albumin Arterial Blood Glucose Urine WBC (Auto) Urine Creatinine 01/31/20 01/31/20 01/31/20 05:51 11:51 18:06 WBC RBC Hgb Hct MCHC RDW MCV MCH Lymph % (Auto) [place] % (Auto) [place] # Eos # Lymph # (Auto) [place] # (Auto) Eos # (Auto) Seg Neutrophils % Seg Neuts % (Manual) Baso # (Auto) Lymphocytes % (Manual) Monocytes % (Manual) Eosinophils % (Manual) Basophils % (Manual) Seg Neutrophils # Seg Neutrophils # Man Lymphocytes # (Manual) Monocytes # (Manual) Eosinophils # (Manual) Nucleated RBC % Basophils # (Manual) PT INR APTT Heparin Anti-Xa Level ABG pH POC ABG pO2 ABG pO2 ABG HCO3 ABG O2 Saturation ABG Base Excess POC ABG pCO2 ABG Hemoglobin ABG Oxyhemoglobin ABG Chloride ABG Glucose Oxyhemoglobin Sodium Potassium Chloride Carbon Dioxide BUN Creatinine Glucose POC Glucose 131 H 167 H 210 H Lactic Acid Calcium Phosphorus Magnesium AST ALT Lactate Dehydrogenase Total Bilirubin Direct Bilirubin CK-MB (CK-2) C-Reactive Protein NT-Pro-B Natriuret Pep Total Protein Albumin Arterial Blood Glucose Urine WBC (Auto) Urine Creatinine 01/31/20 01/31/20 02/01/20 19:24 Unknown 00:34 WBC RBC Hgb Hct MCHC RDW MCV MCH Lymph % (Auto) [place] % (Auto) [place] # Eos # Lymph # (Auto) [place] # (Auto) Eos # (Auto) Seg Neutrophils % Seg Neuts % (Manual) Baso # (Auto) Lymphocytes % (Manual) Monocytes % (Manual) Eosinophils % (Manual) Basophils % (Manual) Seg Neutrophils # Seg Neutrophils # Man Lymphocytes # (Manual) Monocytes # (Manual) Eosinophils # (Manual) Nucleated RBC % Basophils # (Manual) PT INR APTT Heparin Anti-Xa Level ABG pH POC ABG pO2 ABG pO2 ABG HCO3 ABG O2 Saturation ABG Base Excess POC ABG pCO2 ABG Hemoglobin ABG Oxyhemoglobin ABG Chloride ABG Glucose Oxyhemoglobin Sodium Potassium Chloride 95.3 L Carbon Dioxide 33 H BUN 36 H Creatinine Glucose 187 H POC Glucose 116 H Lactic Acid Calcium Phosphorus Magnesium AST ALT Lactate Dehydrogenase Total Bilirubin Direct Bilirubin CK-MB (CK-2) C-Reactive Protein NT-Pro-B Natriuret Pep Total Protein Albumin Arterial Blood Glucose Urine WBC (Auto) Urine Creatinine 57.4 H 02/01/20 02/01/20 02/01/20 05:24 10:40 12:29 WBC RBC Hgb Hct MCHC RDW MCV MCH Lymph % (Auto) [place] % (Auto) [place] # Eos # Lymph # (Auto) [place] # (Auto) Eos # (Auto) Seg Neutrophils % Seg Neuts % (Manual) Baso # (Auto) Lymphocytes % (Manual) Monocytes % (Manual) Eosinophils % (Manual) Basophils % (Manual) Seg Neutrophils # Seg Neutrophils # Man Lymphocytes # (Manual) Monocytes # (Manual) Eosinophils # (Manual) Nucleated RBC % Basophils # (Manual) PT INR APTT Heparin Anti-Xa Level ABG pH POC ABG pO2 ABG pO2 ABG HCO3 ABG O2 Saturation ABG Base Excess POC ABG pCO2 ABG Hemoglobin ABG Oxyhemoglobin ABG Chloride ABG Glucose Oxyhemoglobin Sodium Potassium Chloride Carbon Dioxide BUN Creatinine Glucose POC Glucose 142 H 165 H 151 H Lactic Acid Calcium Phosphorus Magnesium AST ALT Lactate Dehydrogenase Total Bilirubin Direct Bilirubin CK-MB (CK-2) C-Reactive Protein NT-Pro-B Natriuret Pep Total Protein Albumin Arterial Blood Glucose Urine WBC (Auto) Urine Creatinine 02/01/20 02/01/20 02/02/20 17:16 23:23 06:36 WBC RBC Hgb Hct MCHC RDW MCV MCH Lymph % (Auto) [place] % (Auto) [place] # Eos # Lymph # (Auto) [place] # (Auto) Eos # (Auto) Seg Neutrophils % Seg Neuts % (Manual) Baso # (Auto) Lymphocytes % (Manual) Monocytes % (Manual) Eosinophils % (Manual) Basophils % (Manual) Seg Neutrophils # Seg Neutrophils # Man Lymphocytes # (Manual) Monocytes # (Manual) Eosinophils # (Manual) Nucleated RBC % Basophils # (Manual) PT INR APTT Heparin Anti-Xa Level ABG pH POC ABG pO2 ABG pO2 ABG HCO3 ABG O2 Saturation ABG Base Excess POC ABG pCO2 ABG Hemoglobin ABG Oxyhemoglobin ABG Chloride ABG Glucose Oxyhemoglobin Sodium Potassium Chloride Carbon Dioxide BUN Creatinine Glucose POC Glucose 137 H 145 H 181 H Lactic Acid Calcium Phosphorus Magnesium AST ALT Lactate Dehydrogenase Total Bilirubin Direct Bilirubin CK-MB (CK-2) C-Reactive Protein NT-Pro-B Natriuret Pep Total Protein Albumin Arterial Blood Glucose Urine WBC (Auto) Urine Creatinine 02/02/20 02/02/20 02/02/20 10:01 12:05 17:54 WBC RBC Hgb Hct MCHC RDW MCV MCH Lymph % (Auto) [place] % (Auto) [place] # Eos # Lymph # (Auto) [place] # (Auto) Eos # (Auto) Seg Neutrophils % Seg Neuts % (Manual) Baso # (Auto) Lymphocytes % (Manual) Monocytes % (Manual) Eosinophils % (Manual) Basophils % (Manual) Seg Neutrophils # Seg Neutrophils # Man Lymphocytes # (Manual) Monocytes # (Manual) Eosinophils # (Manual) Nucleated RBC % Basophils # (Manual) PT INR APTT Heparin Anti-Xa Level ABG pH POC ABG pO2 ABG pO2 ABG HCO3 ABG O2 Saturation ABG Base Excess POC ABG pCO2 ABG Hemoglobin ABG Oxyhemoglobin ABG Chloride ABG Glucose Oxyhemoglobin Sodium Potassium Chloride 95.3 L Carbon Dioxide BUN 44 H Creatinine Glucose 234 H POC Glucose 184 H 127 H Lactic Acid Calcium Phosphorus Magnesium AST 363 H ALT 457 H Lactate Dehydrogenase Total Bilirubin Direct Bilirubin CK-MB (CK-2) C-Reactive Protein NT-Pro-B Natriuret Pep Total Protein Albumin 3.0 L Arterial Blood Glucose Urine WBC (Auto) Urine Creatinine 02/02/20 02/03/20 02/03/20 23:47 05:32 07:04 WBC 13.0 H RBC Hgb 9.5 L Hct 30.8 L MCHC 31 L RDW 19.6 H MCV 81 L MCH 25 L Lymph % (Auto) [place] % (Auto) 9.4 H [place] # Eos # Lymph # (Auto) [place] # (Auto) 1.2 H Eos # (Auto) Seg Neutrophils % 72.3 H Seg Neuts % (Manual) Baso # (Auto) Lymphocytes % (Manual) Monocytes % (Manual) Eosinophils % (Manual) Basophils % (Manual) Seg Neutrophils # 9.4 H Seg Neutrophils # Man Lymphocytes # (Manual) Monocytes # (Manual) Eosinophils # (Manual) Nucleated RBC % Basophils # (Manual) PT INR APTT Heparin Anti-Xa Level ABG pH POC ABG pO2 ABG pO2 ABG HCO3 ABG O2 Saturation ABG Base Excess POC ABG pCO2 ABG Hemoglobin ABG Oxyhemoglobin ABG Chloride ABG Glucose Oxyhemoglobin Sodium Potassium Chloride Carbon Dioxide BUN Creatinine Glucose POC Glucose 124 H 129 H Lactic Acid Calcium Phosphorus Magnesium AST ALT Lactate Dehydrogenase Total Bilirubin Direct Bilirubin CK-MB (CK-2) C-Reactive Protein NT-Pro-B Natriuret Pep Total Protein Albumin Arterial Blood Glucose Urine WBC (Auto) Urine Creatinine 02/03/20 02/03/20 02/03/20 07:04 11:32 12:49 WBC RBC Hgb Hct MCHC RDW MCV MCH Lymph % (Auto) [place] % (Auto) [place] # Eos # Lymph # (Auto) [place] # (Auto) Eos # (Auto) Seg Neutrophils % Seg Neuts % (Manual) Baso # (Auto) Lymphocytes % (Manual) Monocytes % (Manual) Eosinophils % (Manual) Basophils % (Manual) Seg Neutrophils # Seg Neutrophils # Man Lymphocytes # (Manual) Monocytes # (Manual) Eosinophils # (Manual) Nucleated RBC % Basophils # (Manual) PT INR APTT Heparin Anti-Xa Level ABG pH POC ABG pO2 ABG pO2 ABG HCO3 ABG O2 Saturation ABG Base Excess POC ABG pCO2 ABG Hemoglobin ABG Oxyhemoglobin ABG Chloride ABG Glucose Oxyhemoglobin Sodium Potassium Chloride 97.9 L Carbon Dioxide 33 H BUN 39 H Creatinine Glucose 119 H POC Glucose 138 H Lactic Acid Calcium Phosphorus Magnesium 2.60 H AST ALT Lactate Dehydrogenase Total Bilirubin Direct Bilirubin CK-MB (CK-2) C-Reactive Protein NT-Pro-B Natriuret Pep Total Protein Albumin Arterial Blood Glucose Urine WBC (Auto) Urine Creatinine 02/03/20 02/04/20 02/04/20 18:28 16:24 16:24 WBC RBC 3.38 L Hgb 8.6 L Hct 26.9 L MCHC RDW 19.5 H MCV 80 L MCH 26 L Lymph % (Auto) [place] % (Auto) [place] # Eos # Lymph # (Auto) [place] # (Auto) Eos # (Auto) Seg Neutrophils % Seg Neuts % (Manual) Baso # (Auto) Lymphocytes % (Manual) Monocytes % (Manual) Eosinophils % (Manual) Basophils % (Manual) Seg Neutrophils # Seg Neutrophils # Man Lymphocytes # (Manual) Monocytes # (Manual) Eosinophils # (Manual) Nucleated RBC % Basophils # (Manual) PT INR APTT Heparin Anti-Xa Level ABG pH POC ABG pO2 ABG pO2 ABG HCO3 ABG O2 Saturation ABG Base Excess POC ABG pCO2 ABG Hemoglobin ABG Oxyhemoglobin ABG Chloride ABG Glucose Oxyhemoglobin Sodium Potassium 3.4 L Chloride Carbon Dioxide 31 H BUN 37 H Creatinine Glucose 70 L POC Glucose 118 H Lactic Acid Calcium Phosphorus Magnesium AST 169 H ALT 394 H Lactate Dehydrogenase Total Bilirubin 1.50 H Direct Bilirubin CK-MB (CK-2) C-Reactive Protein NT-Pro-B Natriuret Pep Total Protein Albumin 2.9 L Arterial Blood Glucose Urine WBC (Auto) Urine Creatinine 02/05/20 02/05/20 02/05/20 00:41 06:37 17:14 WBC RBC Hgb Hct MCHC RDW MCV MCH Lymph % (Auto) [place] % (Auto) [place] # Eos # Lymph # (Auto) [place] # (Auto) Eos # (Auto) Seg Neutrophils % Seg Neuts % (Manual) Baso # (Auto) Lymphocytes % (Manual) Monocytes % (Manual) Eosinophils % (Manual) Basophils % (Manual) Seg Neutrophils # Seg Neutrophils # Man Lymphocytes # (Manual) Monocytes # (Manual) Eosinophils # (Manual) Nucleated RBC % Basophils # (Manual) PT INR APTT Heparin Anti-Xa Level ABG pH POC ABG pO2 ABG pO2 ABG HCO3 ABG O2 Saturation ABG Base Excess POC ABG pCO2 ABG Hemoglobin ABG Oxyhemoglobin ABG Chloride ABG Glucose Oxyhemoglobin Sodium Potassium 3.1 L Chloride Carbon Dioxide 35 H BUN 32 H Creatinine 0.7 L Glucose POC Glucose 69 L 127 H Lactic Acid Calcium Phosphorus Magnesium AST 134 H ALT 352 H Lactate Dehydrogenase Total Bilirubin 1.60 H Direct Bilirubin CK-MB (CK-2) C-Reactive Protein NT-Pro-B Natriuret Pep Total Protein Albumin 2.9 L Arterial Blood Glucose Urine WBC (Auto) Urine Creatinine 02/05/20 02/06/20 02/06/20 23:43 05:32 08:01 WBC RBC Hgb Hct MCHC RDW MCV MCH Lymph % (Auto) [place] % (Auto) [place] # Eos # Lymph # (Auto) [place] # (Auto) Eos # (Auto) Seg Neutrophils % Seg Neuts % (Manual) Baso # (Auto) Lymphocytes % (Manual) Monocytes % (Manual) Eosinophils % (Manual) Basophils % (Manual) Seg Neutrophils # Seg Neutrophils # Man Lymphocytes # (Manual) Monocytes # (Manual) Eosinophils # (Manual) Nucleated RBC % Basophils # (Manual) PT INR APTT Heparin Anti-Xa Level ABG pH POC ABG pO2 ABG pO2 ABG HCO3 ABG O2 Saturation ABG Base Excess POC ABG pCO2 ABG Hemoglobin ABG Oxyhemoglobin ABG Chloride ABG Glucose Oxyhemoglobin Sodium Potassium Chloride Carbon Dioxide BUN 40 H Creatinine Glucose 132 H POC Glucose 129 H 131 H Lactic Acid Calcium Phosphorus Magnesium AST ALT Lactate Dehydrogenase Total Bilirubin Direct Bilirubin CK-MB (CK-2) C-Reactive Protein NT-Pro-B Natriuret Pep Total Protein Albumin Arterial Blood Glucose Urine WBC (Auto) Urine Creatinine 02/06/20 02/06/20 02/06/20 11:51 16:28 17:32 WBC RBC Hgb Hct MCHC RDW MCV MCH Lymph % (Auto) [place] % (Auto) [place] # Eos # Lymph # (Auto) [place] # (Auto) Eos # (Auto) Seg Neutrophils % Seg Neuts % (Manual) Baso # (Auto) Lymphocytes % (Manual) Monocytes % (Manual) Eosinophils % (Manual) Basophils % (Manual) Seg Neutrophils # Seg Neutrophils # Man Lymphocytes # (Manual) Monocytes # (Manual) Eosinophils # (Manual) Nucleated RBC % Basophils # (Manual) PT INR APTT Heparin Anti-Xa Level ABG pH POC ABG pO2 ABG pO2 ABG HCO3 ABG O2 Saturation ABG Base Excess POC ABG pCO2 ABG Hemoglobin ABG Oxyhemoglobin ABG Chloride ABG Glucose Oxyhemoglobin Sodium Potassium Chloride Carbon Dioxide BUN Creatinine Glucose POC Glucose 167 H 129 H Lactic Acid Calcium Phosphorus Magnesium AST 824 H ALT 948 H Lactate Dehydrogenase Total Bilirubin 1.70 H Direct Bilirubin 1.2 H CK-MB (CK-2) C-Reactive Protein NT-Pro-B Natriuret Pep Total Protein Albumin 2.9 L Arterial Blood Glucose Urine WBC (Auto) Urine Creatinine 02/07/20 02/07/20 02/07/20 00:11 04:57 04:57 WBC RBC Hgb 9.2 L Hct 29.7 L MCHC 31 L RDW 20.2 H MCV 80 L MCH 25 L Lymph % (Auto) [place] % (Auto) [place] # Eos # Lymph # (Auto) [place] # (Auto) Eos # (Auto) Seg Neutrophils % Seg Neuts % (Manual) Baso # (Auto) Lymphocytes % (Manual) Monocytes % (Manual) Eosinophils % (Manual) Basophils % (Manual) Seg Neutrophils # Seg Neutrophils # Man Lymphocytes # (Manual) Monocytes # (Manual) Eosinophils # (Manual) Nucleated RBC % Basophils # (Manual) PT INR APTT Heparin Anti-Xa Level ABG pH POC ABG pO2 ABG pO2 ABG HCO3 ABG O2 Saturation ABG Base Excess POC ABG pCO2 ABG Hemoglobin ABG Oxyhemoglobin ABG Chloride ABG Glucose Oxyhemoglobin Sodium Potassium 3.4 L D Chloride Carbon Dioxide 32 H BUN 39 H Creatinine Glucose 106 H POC Glucose 121 H Lactic Acid Calcium Phosphorus Magnesium AST ALT Lactate Dehydrogenase Total Bilirubin Direct Bilirubin CK-MB (CK-2) C-Reactive Protein NT-Pro-B Natriuret Pep Total Protein Albumin Arterial Blood Glucose Urine WBC (Auto) Urine Creatinine 02/07/20 02/07/20 02/07/20 15:03 15:03 17:11 WBC RBC Hgb Hct MCHC RDW MCV MCH Lymph % (Auto) [place] % (Auto) [place] # Eos # Lymph # (Auto) [place] # (Auto) Eos # (Auto) Seg Neutrophils % Seg Neuts % (Manual) Baso # (Auto) Lymphocytes % (Manual) Monocytes % (Manual) Eosinophils % (Manual) Basophils % (Manual) Seg Neutrophils # Seg Neutrophils # Man Lymphocytes # (Manual) Monocytes # (Manual) Eosinophils # (Manual) Nucleated RBC % Basophils # (Manual) PT 27.0 H INR 2.46 H APTT Heparin Anti-Xa Level ABG pH POC ABG pO2 ABG pO2 ABG HCO3 ABG O2 Saturation ABG Base Excess POC ABG pCO2 ABG Hemoglobin ABG Oxyhemoglobin ABG Chloride ABG Glucose Oxyhemoglobin Sodium Potassium Chloride Carbon Dioxide BUN Creatinine Glucose POC Glucose 109 H Lactic Acid Calcium Phosphorus Magnesium AST 424 H ALT 796 H Lactate Dehydrogenase Total Bilirubin 1.60 H Direct Bilirubin 1.2 H CK-MB (CK-2) C-Reactive Protein NT-Pro-B Natriuret Pep Total Protein Albumin 2.9 L Arterial Blood Glucose Urine WBC (Auto) Urine Creatinine 02/08/20 02/08/20 02/08/20 12:14 17:44 19:00 WBC RBC Hgb Hct MCHC RDW MCV MCH Lymph % (Auto) [place] % (Auto) [place] # Eos # Lymph # (Auto) [place] # (Auto) Eos # (Auto) Seg Neutrophils % Seg Neuts % (Manual) Baso # (Auto) Lymphocytes % (Manual) Monocytes % (Manual) Eosinophils % (Manual) Basophils % (Manual) Seg Neutrophils # Seg Neutrophils # Man Lymphocytes # (Manual) Monocytes # (Manual) Eosinophils # (Manual) Nucleated RBC % Basophils # (Manual) PT INR APTT Heparin Anti-Xa Level ABG pH POC ABG pO2 ABG pO2 ABG HCO3 ABG O2 Saturation ABG Base Excess POC ABG pCO2 ABG Hemoglobin ABG Oxyhemoglobin ABG Chloride ABG Glucose Oxyhemoglobin Sodium Potassium Chloride Carbon Dioxide BUN Creatinine Glucose POC Glucose 111 H 107 H Lactic Acid Calcium Phosphorus Magnesium AST 309 H ALT 650 H Lactate Dehydrogenase Total Bilirubin 1.30 H Direct Bilirubin 0.9 H CK-MB (CK-2) C-Reactive Protein NT-Pro-B Natriuret Pep Total Protein 6.2 L Albumin 2.7 L Arterial Blood Glucose Urine WBC (Auto) Urine Creatinine 02/09/20 02/09/20 02/09/20 05:41 12:28 18:07 WBC RBC Hgb Hct MCHC RDW MCV MCH Lymph % (Auto) [place] % (Auto) [place] # Eos # Lymph # (Auto) [place] # (Auto) Eos # (Auto) Seg Neutrophils % Seg Neuts % (Manual) Baso # (Auto) Lymphocytes % (Manual) Monocytes % (Manual) Eosinophils % (Manual) Basophils % (Manual) Seg Neutrophils # Seg Neutrophils # Man Lymphocytes # (Manual) Monocytes # (Manual) Eosinophils # (Manual) Nucleated RBC % Basophils # (Manual) PT INR APTT Heparin Anti-Xa Level ABG pH POC ABG pO2 ABG pO2 ABG HCO3 ABG O2 Saturation ABG Base Excess POC ABG pCO2 ABG Hemoglobin ABG Oxyhemoglobin ABG Chloride ABG Glucose Oxyhemoglobin Sodium Potassium Chloride Carbon Dioxide BUN Creatinine Glucose POC Glucose 113 H 140 H 143 H Lactic Acid Calcium Phosphorus Magnesium AST ALT Lactate Dehydrogenase Total Bilirubin Direct Bilirubin CK-MB (CK-2) C-Reactive Protein NT-Pro-B Natriuret Pep Total Protein Albumin Arterial Blood Glucose Urine WBC (Auto) Urine Creatinine 02/09/20 02/09/20 02/10/20 21:40 23:45 06:00 WBC RBC Hgb Hct MCHC RDW MCV MCH Lymph % (Auto) [place] % (Auto) [place] # Eos # Lymph # (Auto) [place] # (Auto) Eos # (Auto) Seg Neutrophils % Seg Neuts % (Manual) Baso # (Auto) Lymphocytes % (Manual) Monocytes % (Manual) Eosinophils % (Manual) Basophils % (Manual) Seg Neutrophils # Seg Neutrophils # Man Lymphocytes # (Manual) Monocytes # (Manual) Eosinophils # (Manual) Nucleated RBC % Basophils # (Manual) PT INR APTT Heparin Anti-Xa Level ABG pH POC ABG pO2 ABG pO2 59.8 L ABG HCO3 33.3 H ABG O2 Saturation 88.9 L ABG Base Excess 7.4 H POC ABG pCO2 ABG Hemoglobin 10.4 L ABG Oxyhemoglobin ABG Chloride ABG Glucose Oxyhemoglobin 86.3 L Sodium Potassium Chloride Carbon Dioxide BUN Creatinine Glucose POC Glucose 127 H 114 H Lactic Acid Calcium Phosphorus Magnesium AST ALT Lactate Dehydrogenase Total Bilirubin Direct Bilirubin CK-MB (CK-2) C-Reactive Protein NT-Pro-B Natriuret Pep Total Protein Albumin Arterial Blood Glucose Urine WBC (Auto) Urine Creatinine 02/10/20 02/10/20 02/10/20 07:40 07:40 13:38 WBC 11.5 H RBC Hgb 10.6 L Hct 34.7 L MCHC 31 L RDW 19.8 H MCV 79 L MCH 24 L Lymph % (Auto) [place] % (Auto) 9.2 H [place] # Eos # Lymph # (Auto) [place] # (Auto) 1.1 H Eos # (Auto) Seg Neutrophils % Seg Neuts % (Manual) Baso # (Auto) Lymphocytes % (Manual) Monocytes % (Manual) Eosinophils % (Manual) Basophils % (Manual) Seg Neutrophils # Seg Neutrophils # Man Lymphocytes # (Manual) Monocytes # (Manual) Eosinophils # (Manual) Nucleated RBC % Basophils # (Manual) PT INR APTT Heparin Anti-Xa Level ABG pH POC ABG pO2 ABG pO2 ABG HCO3 ABG O2 Saturation ABG Base Excess POC ABG pCO2 ABG Hemoglobin ABG Oxyhemoglobin ABG Chloride ABG Glucose Oxyhemoglobin Sodium 151 H Potassium Chloride 107.2 H Carbon Dioxide 36 H BUN 25 H Creatinine 0.7 L Glucose 114 H POC Glucose 116 H Lactic Acid Calcium Phosphorus Magnesium 2.40 H AST ALT Lactate Dehydrogenase Total Bilirubin Direct Bilirubin CK-MB (CK-2) C-Reactive Protein NT-Pro-B Natriuret Pep Total Protein Albumin Arterial Blood Glucose Urine WBC (Auto) Urine Creatinine 02/10/20 02/11/20 02/11/20 17:44 05:47 12:21 WBC RBC Hgb Hct MCHC RDW MCV MCH Lymph % (Auto) [place] % (Auto) [place] # Eos # Lymph # (Auto) [place] # (Auto) Eos # (Auto) Seg Neutrophils % Seg Neuts % (Manual) Baso # (Auto) Lymphocytes % (Manual) Monocytes % (Manual) Eosinophils % (Manual) Basophils % (Manual) Seg Neutrophils # Seg Neutrophils # Man Lymphocytes # (Manual) Monocytes # (Manual) Eosinophils # (Manual) Nucleated RBC % Basophils # (Manual) PT INR APTT Heparin Anti-Xa Level ABG pH POC ABG pO2 ABG pO2 ABG HCO3 ABG O2 Saturation ABG Base Excess POC ABG pCO2 ABG Hemoglobin ABG Oxyhemoglobin ABG Chloride ABG Glucose Oxyhemoglobin Sodium Potassium Chloride Carbon Dioxide BUN Creatinine Glucose POC Glucose 139 H 173 H 143 H Lactic Acid Calcium Phosphorus Magnesium AST ALT Lactate Dehydrogenase Total Bilirubin Direct Bilirubin CK-MB (CK-2) C-Reactive Protein NT-Pro-B Natriuret Pep Total Protein Albumin Arterial Blood Glucose Urine WBC (Auto) Urine Creatinine 02/11/20 02/11/20 02/12/20 13:43 14:11 00:15 WBC RBC Hgb Hct MCHC RDW MCV MCH Lymph % (Auto) [place] % (Auto) [place] # Eos # Lymph # (Auto) [place] # (Auto) Eos # (Auto) Seg Neutrophils % Seg Neuts % (Manual) Baso # (Auto) Lymphocytes % (Manual) Monocytes % (Manual) Eosinophils % (Manual) Basophils % (Manual) Seg Neutrophils # Seg Neutrophils # Man Lymphocytes # (Manual) Monocytes # (Manual) Eosinophils # (Manual) Nucleated RBC % Basophils # (Manual) PT INR APTT Heparin Anti-Xa Level ABG pH 7.502 H POC ABG pO2 77.7 L ABG pO2 ABG HCO3 ABG O2 Saturation ABG Base Excess POC ABG pCO2 ABG Hemoglobin 11.1 L ABG Oxyhemoglobin ABG Chloride 108.0 H ABG Glucose 151 H Oxyhemoglobin Sodium Potassium Chloride Carbon Dioxide BUN Creatinine Glucose POC Glucose 130 H 125 H Lactic Acid Calcium Phosphorus Magnesium AST ALT Lactate Dehydrogenase Total Bilirubin Direct Bilirubin CK-MB (CK-2) C-Reactive Protein NT-Pro-B Natriuret Pep Total Protein Albumin Arterial Blood Glucose 151 H Urine WBC (Auto) Urine Creatinine 02/12/20 02/12/20 02/12/20 04:56 04:56 17:42 WBC RBC Hgb 9.9 L Hct 31.8 L MCHC 31 L RDW 19.4 H MCV 79 L MCH 25 L Lymph % (Auto) [place] % (Auto) 10.3 H [place] # Eos # Lymph # (Auto) [place] # (Auto) 1.0 H Eos # (Auto) Seg Neutrophils % Seg Neuts % (Manual) Baso # (Auto) Lymphocytes % (Manual) Monocytes % (Manual) Eosinophils % (Manual) Basophils % (Manual) Seg Neutrophils # Seg Neutrophils # Man Lymphocytes # (Manual) Monocytes # (Manual) Eosinophils # (Manual) Nucleated RBC % Basophils # (Manual) PT INR APTT Heparin Anti-Xa Level ABG pH POC ABG pO2 ABG pO2 ABG HCO3 ABG O2 Saturation ABG Base Excess POC ABG pCO2 ABG Hemoglobin ABG Oxyhemoglobin ABG Chloride ABG Glucose Oxyhemoglobin Sodium 149 H Potassium Chloride 108.6 H Carbon Dioxide BUN 28 H Creatinine 0.7 L Glucose 108 H POC Glucose 113 H Lactic Acid Calcium Phosphorus Magnesium AST ALT Lactate Dehydrogenase Total Bilirubin Direct Bilirubin CK-MB (CK-2) C-Reactive Protein NT-Pro-B Natriuret Pep Total Protein Albumin Arterial Blood Glucose Urine WBC (Auto) Urine Creatinine 02/13/20 02/13/20 02/13/20 00:39 05:36 12:25 WBC RBC Hgb Hct MCHC RDW MCV MCH Lymph % (Auto) [place] % (Auto) [place] # Eos # Lymph # (Auto) [place] # (Auto) Eos # (Auto) Seg Neutrophils % Seg Neuts % (Manual) Baso # (Auto) Lymphocytes % (Manual) Monocytes % (Manual) Eosinophils % (Manual) Basophils % (Manual) Seg Neutrophils # Seg Neutrophils # Man Lymphocytes # (Manual) Monocytes # (Manual) Eosinophils # (Manual) Nucleated RBC % Basophils # (Manual) PT INR APTT Heparin Anti-Xa Level ABG pH POC ABG pO2 ABG pO2 ABG HCO3 ABG O2 Saturation ABG Base Excess POC ABG pCO2 ABG Hemoglobin ABG Oxyhemoglobin ABG Chloride ABG Glucose Oxyhemoglobin Sodium Potassium Chloride Carbon Dioxide BUN Creatinine Glucose POC Glucose 129 H 126 H 129 H Lactic Acid Calcium Phosphorus Magnesium AST ALT Lactate Dehydrogenase Total Bilirubin Direct Bilirubin CK-MB (CK-2) C-Reactive Protein NT-Pro-B Natriuret Pep Total Protein Albumin Arterial Blood Glucose Urine WBC (Auto) Urine Creatinine 02/13/20 02/14/20 02/14/20 17:59 00:15 05:41 WBC RBC Hgb Hct MCHC RDW MCV MCH Lymph % (Auto) [place] % (Auto) [place] # Eos # Lymph # (Auto) [place] # (Auto) Eos # (Auto) Seg Neutrophils % Seg Neuts % (Manual) Baso # (Auto) Lymphocytes % (Manual) Monocytes % (Manual) Eosinophils % (Manual) Basophils % (Manual) Seg Neutrophils # Seg Neutrophils # Man Lymphocytes # (Manual) Monocytes # (Manual) Eosinophils # (Manual) Nucleated RBC % Basophils # (Manual) PT INR APTT Heparin Anti-Xa Level ABG pH POC ABG pO2 ABG pO2 ABG HCO3 ABG O2 Saturation ABG Base Excess POC ABG pCO2 ABG Hemoglobin ABG Oxyhemoglobin ABG Chloride ABG Glucose Oxyhemoglobin Sodium Potassium Chloride Carbon Dioxide BUN Creatinine Glucose POC Glucose 153 H 130 H 130 H Lactic Acid Calcium Phosphorus Magnesium AST ALT Lactate Dehydrogenase Total Bilirubin Direct Bilirubin CK-MB (CK-2) C-Reactive Protein NT-Pro-B Natriuret Pep Total Protein Albumin Arterial Blood Glucose Urine WBC (Auto) Urine Creatinine 02/14/20 02/15/20 02/15/20 11:32 00:12 05:27 WBC RBC Hgb Hct MCHC RDW MCV MCH Lymph % (Auto) [place] % (Auto) [place] # Eos # Lymph # (Auto) [place] # (Auto) Eos # (Auto) Seg Neutrophils % Seg Neuts % (Manual) Baso # (Auto) Lymphocytes % (Manual) Monocytes % (Manual) Eosinophils % (Manual) Basophils % (Manual) Seg Neutrophils # Seg Neutrophils # Man Lymphocytes # (Manual) Monocytes # (Manual) Eosinophils # (Manual) Nucleated RBC % Basophils # (Manual) PT INR APTT Heparin Anti-Xa Level ABG pH POC ABG pO2 ABG pO2 ABG HCO3 ABG O2 Saturation ABG Base Excess POC ABG pCO2 ABG Hemoglobin ABG Oxyhemoglobin ABG Chloride ABG Glucose Oxyhemoglobin Sodium Potassium Chloride Carbon Dioxide BUN Creatinine Glucose POC Glucose 157 H 124 H 111 H Lactic Acid Calcium Phosphorus Magnesium AST ALT Lactate Dehydrogenase Total Bilirubin Direct Bilirubin CK-MB (CK-2) C-Reactive Protein NT-Pro-B Natriuret Pep Total Protein Albumin Arterial Blood Glucose Urine WBC (Auto) Urine Creatinine 02/15/20 02/15/20 02/15/20 06:59 06:59 11:14 WBC RBC Hgb 10.4 L Hct 33.7 L MCHC 31 L RDW 19.4 H MCV 80 L MCH 24 L Lymph % (Auto) [place] % (Auto) [place] # Eos # Lymph # (Auto) [place] # (Auto) Eos # (Auto) Seg Neutrophils % Seg Neuts % (Manual) Baso # (Auto) Lymphocytes % (Manual) Monocytes % (Manual) Eosinophils % (Manual) Basophils % (Manual) 2.0 H Seg Neutrophils # Seg Neutrophils # Man Lymphocytes # (Manual) Monocytes # (Manual) Eosinophils # (Manual) Nucleated RBC % 1.0 H Basophils # (Manual) 0.2 H PT INR APTT Heparin Anti-Xa Level ABG pH POC ABG pO2 ABG pO2 ABG HCO3 ABG O2 Saturation ABG Base Excess POC ABG pCO2 ABG Hemoglobin ABG Oxyhemoglobin ABG Chloride ABG Glucose Oxyhemoglobin Sodium 149 H Potassium Chloride 108.4 H Carbon Dioxide 31 H BUN 40 H Creatinine 0.7 L Glucose 150 H POC Glucose 128 H Lactic Acid Calcium Phosphorus Magnesium AST ALT Lactate Dehydrogenase Total Bilirubin Direct Bilirubin CK-MB (CK-2) C-Reactive Protein NT-Pro-B Natriuret Pep Total Protein Albumin Arterial Blood Glucose Urine WBC (Auto) Urine Creatinine 02/15/20 02/15/20 02/16/20 17:46 23:50 05:03 WBC RBC Hgb Hct MCHC RDW MCV MCH Lymph % (Auto) [place] % (Auto) [place] # Eos # Lymph # (Auto) [place] # (Auto) Eos # (Auto) Seg Neutrophils % Seg Neuts % (Manual) Baso # (Auto) Lymphocytes % (Manual) Monocytes % (Manual) Eosinophils % (Manual) Basophils % (Manual) Seg Neutrophils # Seg Neutrophils # Man Lymphocytes # (Manual) Monocytes # (Manual) Eosinophils # (Manual) Nucleated RBC % Basophils # (Manual) PT INR APTT Heparin Anti-Xa Level ABG pH POC ABG pO2 ABG pO2 ABG HCO3 ABG O2 Saturation ABG Base Excess POC ABG pCO2 ABG Hemoglobin ABG Oxyhemoglobin ABG Chloride ABG Glucose Oxyhemoglobin Sodium Potassium Chloride Carbon Dioxide BUN Creatinine Glucose POC Glucose 154 H 135 H 148 H Lactic Acid Calcium Phosphorus Magnesium AST ALT Lactate Dehydrogenase Total Bilirubin Direct Bilirubin CK-MB (CK-2) C-Reactive Protein NT-Pro-B Natriuret Pep Total Protein Albumin Arterial Blood Glucose Urine WBC (Auto) Urine Creatinine 02/16/20 02/16/20 02/16/20 07:53 11:28 17:52 WBC RBC Hgb Hct MCHC RDW MCV MCH Lymph % (Auto) [place] % (Auto) [place] # Eos # Lymph # (Auto) [place] # (Auto) Eos # (Auto) Seg Neutrophils % Seg Neuts % (Manual) Baso # (Auto) Lymphocytes % (Manual) Monocytes % (Manual) Eosinophils % (Manual) Basophils % (Manual) Seg Neutrophils # Seg Neutrophils # Man Lymphocytes # (Manual) Monocytes # (Manual) Eosinophils # (Manual) Nucleated RBC % Basophils # (Manual) PT INR APTT Heparin Anti-Xa Level ABG pH POC ABG pO2 ABG pO2 ABG HCO3 ABG O2 Saturation ABG Base Excess POC ABG pCO2 ABG Hemoglobin ABG Oxyhemoglobin ABG Chloride ABG Glucose Oxyhemoglobin Sodium Potassium Chloride 107.9 H Carbon Dioxide BUN 38 H Creatinine 0.6 L Glucose 151 H POC Glucose 123 H 152 H Lactic Acid Calcium Phosphorus Magnesium AST ALT Lactate Dehydrogenase Total Bilirubin Direct Bilirubin CK-MB (CK-2) C-Reactive Protein NT-Pro-B Natriuret Pep Total Protein Albumin Arterial Blood Glucose Urine WBC (Auto) Urine Creatinine 02/16/20 02/17/20 23:49 06:24 WBC RBC Hgb Hct MCHC RDW MCV MCH Lymph % (Auto) [place] % (Auto) [place] # Eos # Lymph # (Auto) [place] # (Auto) Eos # (Auto) Seg Neutrophils % Seg Neuts % (Manual) Baso # (Auto) Lymphocytes % (Manual) Monocytes % (Manual) Eosinophils % (Manual) Basophils % (Manual) Seg Neutrophils # Seg Neutrophils # Man Lymphocytes # (Manual) Monocytes # (Manual) Eosinophils # (Manual) Nucleated RBC % Basophils # (Manual) PT INR APTT Heparin Anti-Xa Level ABG pH POC ABG pO2 ABG pO2 ABG HCO3 ABG O2 Saturation ABG Base Excess POC ABG pCO2 ABG Hemoglobin ABG Oxyhemoglobin ABG Chloride ABG Glucose Oxyhemoglobin Sodium Potassium Chloride Carbon Dioxide BUN Creatinine Glucose POC Glucose 156 H 193 H Lactic Acid Calcium Phosphorus Magnesium AST ALT Lactate Dehydrogenase Total Bilirubin Direct Bilirubin CK-MB (CK-2) C-Reactive Protein NT-Pro-B Natriuret Pep Total Protein Albumin Arterial Blood Glucose Urine WBC (Auto) Urine Creatinine Allied health notes reviewed: nursing
[2020-02-17] MEDS: GLYCOPYRROLATE 2 MG TAB PO SCH ×3 (08:25→19:58)
[2020-02-17] MEDS: MIDODRINE 5 MG TAB PO SCH ×3 (08:25→16:15)
[2020-02-17] MEDS: CLOPIDOGREL 75 MG TAB PO SCH (09:05)
[2020-02-17] MEDS: APIXABAN 5 MG TAB PO SCH (09:05)
[2020-02-17] MEDS: QUEtiapine 100 MG TAB PO SCH (09:05)
[2020-02-17] MEDS: LANSOPRAZOLE 30 MG SOLUTAB FEEDTUBE SCH (09:05)
[2020-02-17] MEDS: MORPHINE 2 MG/1 ML INJ IV PRN ×2 (09:11→19:58)
--- NOTE | 2020-02-17 13:06 | Progress Note ---
Assessment and Plan Assessment and plan: --Ischemic cardiomyopathy Cardiology is following, status post cardiac catheterization on 01/22/2020; Co ronary artery disease status post PCI and stent to the LAD Continue current cardiac medications --Acute on chronic hypoxemic respiratory failure; Patient has tracheostomy on vent Continue nebulizers, , trach care Wean off ventilator as tolerated Pulmonary critical following --Acute exacerbation of COPD; Patient is currently on ventilatory support Continue nebulizers --Left lower lobe PE; Continue Eliquis, ventilatory support --Acute right lower extremity DVT; Patient is on Eliquis --Bilateral multifocal pneumonia/community-acquired Completed antibiotics, improved --Severe sepsis/bilateral pneumonia: Completed antibiotics COVID-19 test; 11/24/2019; negative 11/26/2019; negative 12/29/2019: Negative --Paroxysmal atrial fibrillation; Now rate controlled, Stable on amiodarone and Eliquis --Acute on chronic combined systolic and diastolic congestive heart failure Ischemic cardiomyopathy left ventricular ejection fraction 40 to 45% --H/o CAD [[facility] 12/2018 in-stent restenosis] Patient is stable on current cardiac medications --Hypertensive emergency; present on admission Reasonable blood pressures, continue current antihypertensives As needed medications --History of alcohol abuse/alcohol withdrawal; Was on CIWA protocol, now stable --Oropharyngeal dysphagia; status post PEG placement Continue PEG feeds per protocol --History of partial small bowel obstruction; resolved Surgery evaluated. --Obesity; BMI 34.7 Patient needs weight reduction when medically stable --Severe protein calorie malnutrition/hypoalbuminemia Nutrition supplements, dietitian following, PEG feeds --DVT prophylaxis;Eliquis --Full CODE STATUS 01/05; Pt stable. NGT output 650cc over 24 hours, bilious. No f/c, WBC within normal limits. cont NG suction and cont to hold TF 01/06: Abs series - mild improvement in small bowel distension in mid abdomen, normal gas/stool pattern in colon. NGT in duodenum. Continue to hold tube feeding, maintain NG tube with low intermittent suction. Patient's was updated by phone. Continue to provide supportive care and monitor clinically. 01/07: +BMs today and NGT/PEG output appears more gastric today. Plan to clamp NGT, if tolerates start TF from tomorrow. cont supportive care. 01/08; Gastric output decreased over last 24 hours. NGT has been clamped x 24 hours. plan to dc NGT and to start TTF via PEG - vital HF @10cc/hr 01/09: clinically stable, tolerating TF. monitor BMP, wean off from vent as tolerated clinically stable, on TF. wean off vent as tolerated 01/11: wean off from vent, cont to monitor, on TF 01/12: wean off from vent, cont to monitor, on TF. need placement - unfunded 01/13; remains on ventilatory support, unable to wean, DC planning possible LTAC, unfunded 01/14; patient of ventilatory support, T-piece tracheostomy on oxygen, LTAC placement per case management 01/16; tracheostomy, patient on full ventilatory support, wean off vent support as tolerated, pending LTAC placement, social financial issues 01/17; awaiting LTAC placement, insurance and financial issues 01/18; patient tracheostomy remains on ventilatory support 01/19; wean off ventilator as tolerated 01/20; remains on ventilatory support, patient complains of intermittent chest pain, cardiology recommend left heart catheterization tomorrow 01/22/2020. Patient for left heart catheterization per cardiology. Patient remains on AC mode ventilation rate 12, tidal volume 450, FiO2 30% and PEEP of 6. Continue tracheostomy care, airway management and secretion control. 01/23/2020. Cardiac catheterization completed yesterday revealed widely patent previous LAD stent with mild nonobstructive atherosclerosis of the right mid coronary artery and rest of the coronary system was without significant atherosclerosis. The left ventricle ejection fraction was mildly impaired at 40 to 45%. There was some hypokinesis of the basal inferior wall suggestive of previous or recent infarct. Continue GDMT for coronary artery disease including beta blockers, topical nitrates, statin and Plavix. Continue Eliquis for paroxysmal atrial fibrillation and PE. Continue diuresis with Lasix and follow electrolytes closely. Continue Robinul and scopolamine for secretion control and daily SBT per pulmonary. Also, continue bronchodilators and routine trach care/airway management. T-piece trials per pulmonary as tolerated. 01/24/2020. Recent cardiac catheterization has documented widely patent left anterior descending artery stent with minimal nonobstructive diffuse coronary artery disease in the rest of the coronary arteries. Evidence of ischemic cardiomyopathy with inferior wall hypokinesis. Continue with guideline directed medical therapy. Continue Robinul and scopolamine for secretion control and daily SBT per pulmonary. Continue bronchodilators and routine trach care/airway management. T-piece trials per pulmonary as tolerated. 01/25/2020. Continue with guideline directed medical therapy for systolic heart failure. Cardiac catheterization revealed evidence of ischemic cardiomyopathy with inferior wall hypokinesis (EF 40-45%). Patient currently on T-piece with oxygen 10 L/min FiO2 40%. Continue Robinul and scopolamine for secretion control. Continue bronchodilators and routine trach care/airway management. 02/03: Mental status more improved, agree with Reglan will change to IV scheduled for two days, no new vomiting. Pseudomonas A in Sputum. 02/04: Clinical improving, amiodarone discontinued due to LFTs, continue Metoprolol.d/w GI, started on Golytely to clear impaction. Started on dialy Miralax. 02/05: Continue supportive care. Noted bowel movement, continue bowel regimen 02/06: Cardiology input noted beta-hebert increased for better suppression of atrial fibrillation. Continue to monitor, no other evidence of nausea vomiting noted. Discussed with respiratory therapist will be continued on weaning protocol with pressure support today. 02/07: Patient successfully weaned off the ventilator, No new complaints, c ontinue monitoring, BM noted, Discussed with pulmonary, 02/08; tracheostomy on T-piece, patient is more alert and awake today 02/09; clinically no change, tracheostomy on vent 02/10; tracheostomy on vent, full CODE STATUS, poor prognosis, 02/11; clinically no change, remains on ventilatory support, full CODE STATUS, discussed with spouse Ms. Paulette Araiza extensively today 02/12. Patient resting comfortably no change on vent with tracheostomy. Still unable to wean. Some increased crackles today. 02/13: Still unable to wean from the vent. Overall prognosis remains extremely poor. 02/14; remains critically ill, tracheostomy on vent, unable to wean, poor prognosis, full CODE STATUS 02/15; patient is more alert and awake today, chronic tracheostomy on T-piece, continue current management DC planning per case management. Disposition very difficult due to lack of resources and insurance 02/17/2020. Patient remains on mechanical ventilation and tolerating PSV trials. Patient currently with PSV 10/6 at FiO2 of 30%. The high probability of a clinically significant, sudden or life threatening deterioration of the [Respiratory, cardiovascular & neurological] system(s) required my full and direct attention, intervention and personal management. The aggregate critical care time was [32] minutes without overlap. Time includes spent on [x] Data Review and interpretation [x] Patient assessment and monitoring of vital signs [x] Documentation [x] Medication orders and management History Interval history: Patient is a 64-year-old male with known history of hypertension, COPD, history of coronary artery disease, CHF with ejection fraction of 20 to 25% 2019 was admitted through emergency room with worsening shortness of breath Patient was found to be hypoxic and in respiratory distress. Patient was placed on CPAP in route to the hospital. Patient remained hypoxic on CPAP BiPAP ,subsequently was intubated. Patient also had bilateral multifocal pneumonia managed appropriately with antibiotics sputum cultures positive for Pseudomonas, ID treated with cefepime and Vanco. His hospital course became complicated with acute PE, DVT, paroxysmal atrial fib - placed on chronic anticoagulation. Patient was difficult to wean off, status post trach and PEG, remains on mechanical ventilation with trach tube. He then developed partial small bowel obstruction evaluated by general surgeon symptom improved with medical Mx, patient was briefly weaned off ventilatory support however, was in respiratory failure requiring full ventilatory support. Cardiac catheterization on 01/22/2020. Patient remains on mechanical ventilatory support. Patients still with elevated heart rate of Afib with RVR continue amiodarone and metoprolol. LVEF 40 to 45% on Eliquis FOR THE Acute PE/DVT. Partial SBO vs ileus- KUB is negative. Will monitor, No further vomiting noted. If no improvement will repeat a chest xray to ensure no aspiration in the last 24 hrs. Hospitalist Physical - Constitutional Vitals: Temp Pulse Resp BP Pulse Ox 98.8 F 102 H 27 H 95/75 100 02/17/20 08:00 02/17/20 12:46 02/17/20 12:00 02/17/20 12:46 02/17/20 12:46 General appearance: Present: no acute distress, well-nourished, obese, other (Tracheostomy responds to simple questions appropriately) - EENT Eyes: Present: PERRL, EOM intact ENT: hearing intact, clear oral mucosa, dentition normal - Neck Neck: Present: supple, normal ROM - Respiratory Respiratory effort: normal Respiratory: bilateral: CTA - Cardiovascular Rhythm: regular Heart Sounds: Present: S1 & S2. Absent: gallop, rub - Extremities Extremities: no ischemia, No edema, Full ROM - Abdominal General gastrointestinal: soft, non-tender, non-distended, normal bowel sounds - Integumentary Integumentary: Present: clear, warm, dry - Neurologic Neurologic: CNII-XII intact, moves all extremities HEART Score - HEART Score Troponin: Troponin T < 0.010 ng/mL (0.00-0.029) 01/19/20 01:35 Results - Labs CBC & Chem 7: 02/15/20 06:59 02/16/20 07:53 Labs: Laboratory Last Values WBC 10.2 K/mm3 (4.5-11.0) 02/15/20 06:59 RBC 4.24 M/mm3 (3.65-5.03) 02/15/20 06:59 Hgb 10.4 gm/dl (11.8-15.2) L 02/15/20 06:59 Hct 33.7 % (35.5-45.6) L 02/15/20 06:59 MCV 80 fl (84-94) L 02/15/20 06:59 MCH 24 pg (28-32) L 02/15/20 06:59 MCHC 31 % (32-34) L 02/15/20 06:59 RDW 19.4 % (13.2-15.2) H 02/15/20 06:59 Plt Count 281 K/mm3 (140-440) 02/15/20 06:59 Lymph % (Auto) [place] 02/15/20 06:59 [place] % (Auto) Dewaxer 02/15/20 06:59 Eos % (Auto) [place] 02/15/20 06:59 Baso % (Auto) [place] 02/15/20 06:59 Lymph # (Auto) [place] 02/15/20 06:59 [place] # (Auto) [place]axer 02/15/20 06:59 Eos # (Auto) [place] 02/15/20 06:59 Baso # (Auto) [place] 02/15/20 06:59 Add Manual Diff Complete 02/15/20 06:59 Total Counted 100 02/15/20 06:59 Seg Neutrophils % [place] 02/15/20 06:59 Seg Neuts % (Manual) 58.0 % (40.0-70.0) 02/15/20 06:59 Band Neutrophils % 0 % 02/15/20 06:59 Lymphocytes % (Manual) 34.0 % (13.4-35.0) 02/15/20 06:59 Reactive Lymphs % (Man) 1.0 % 02/15/20 06:59 Monocytes % (Manual) 4.0 % (0.0-7.3) 02/15/20 06:59 Eosinophils % (Manual) 0 % (0.0-4.3) 02/15/20 06:59 Basophils % (Manual) 2.0 % (0.0-1.8) H 02/15/20 06:59 Metamyelocytes % 1.0 % 02/15/20 06:59 Myelocytes % 0 % 02/15/20 06:59 Promyelocytes % 0 % 02/15/20 06:59 Blast Cells % 0 % 02/15/20 06:59 Nucleated RBC % 1.0 % (0.0-0.9) H 02/15/20 06:59 Seg Neutrophils # [place] 02/15/20 06:59 Seg Neutrophils # Man 5.9 K/mm3 (1.8-7.7) 02/15/20 06:59 Band Neutrophils # 0.0 K/mm3 02/15/20 06:59 Lymphocytes # (Manual) 3.5 K/mm3 (1.2-5.4) 02/15/20 06:59 Abs React Lymphs (Man) 0.1 K/mm3 02/15/20 06:59 Monocytes # (Manual) 0.4 K/mm3 (0.0-0.8) 02/15/20 06:59 Eosinophils # (Manual) 0.0 K/mm3 (0.0-0.4) 02/15/20 06:59 Basophils # (Manual) 0.2 K/mm3 (0.0-0.1) H 02/15/20 06:59 Metamyelocytes # 0.1 K/mm3 02/15/20 06:59 Myelocytes # 0.0 K/mm3 02/15/20 06:59 Promyelocytes # 0.0 K/mm3 02/15/20 06:59 Blast Cells # 0.0 K/mm3 02/15/20 06:59 WBC Morphology Not Reportable 02/15/20 06:59 Hypersegmented Neuts Not Reportable 02/15/20 06:59 Hyposegmented Neuts Not Reportable 02/15/20 06:59 Hypogranular Neuts Not Reportable 02/15/20 06:59 Smudge Cells Not Reportable 02/15/20 06:59 Toxic Granulation Not Reportable 02/15/20 06:59 Toxic Vacuolation Not Reportable 02/15/20 06:59 Dohle Bodies Not Reportable 02/15/20 06:59 Pelger-Huet Anomaly Not Reportable 02/15/20 06:59 Hector Rods Not Reportable 02/15/20 06:59 Platelet Estimate Consistent w auto 02/15/20 06:59 Clumped Platelets Not Reportable 02/15/20 06:59 Plt Clumps, EDTA Not Reportable 02/15/20 06:59 Large Platelets Not Reportable 02/15/20 06:59 Giant Platelets Not Reportable 02/15/20 06:59 Platelet Satelliting Not Reportable 02/15/20 06:59 Plt Morphology Comment Giant platelets 02/15/20 06:59 RBC Morphology Not Reportable 02/15/20 06:59 Dimorphic RBCs Not Reportable 02/15/20 06:59 Polychromasia Not Reportable 02/15/20 06:59 Hypochromasia 1+ 02/15/20 06:59 Poikilocytosis Few 02/15/20 06:59 Anisocytosis 1+ 02/15/20 06:59 Microcytosis Not Reportable 02/15/20 06:59 Macrocytosis Not Reportable 02/15/20 06:59 Spherocytes Not Reportable 02/15/20 06:59 Pappenheimer Bodies Not Reportable 02/15/20 06:59 Sickle Cells Not Reportable 02/15/20 06:59 Target Cells 1+ 02/15/20 06:59 Tear Drop Cells Few 02/15/20 06:59 Ovalocytes Not Reportable 02/15/20 06:59 Helmet Cells Not Reportable 02/15/20 06:59 [place] Bodies Not Reportable 02/15/20 06:59 [place] Rings Not Reportable 02/15/20 06:59 Oc Cells Not Reportable 02/15/20 06:59 Bite Cells Not Reportable 02/15/20 06:59 Crenated Cell Not Reportable 02/15/20 06:59 Elliptocytes Few 02/15/20 06:59 Acanthocytes (Spur) Not Reportable 02/15/20 06:59 Rouleaux Not Reportable 02/15/20 06:59 Hemoglobin C Crystals Not Reportable 02/15/20 06:59 Schistocytes Not Reportable 02/15/20 06:59 Malaria parasites Not Reportable 02/15/20 06:59 Clifford Bodies Not Reportable 02/15/20 06:59 Hem Pathologist Commnt No 02/15/20 06:59 PT 27.0 Sec. (12.2-14.9) H 02/07/20 15:03 INR 2.46 (0.87-1.13) H 02/07/20 15:03 APTT 31.5 Sec. (24.2-36.6) 01/22/20 09:58 Heparin Anti-Xa Level 1.34 U.I./ml (0.3-0.7) H 01/22/20 04:45 ABG pH 7.502 (7.320-7.450) H 02/11/20 14:11 POC ABG pCO2 34.8 mmHg (32.0-48.0) 02/11/20 14:11 ABG pCO2 54.1 mm Hg 02/09/20 21:40 POC ABG pO2 77.7 mmHg (83-108) L 02/11/20 14:11 ABG pO2 59.8 mm Hg (80.0-90.0) L 02/09/20 21:40 POC ABG HCO3 26.7 02/11/20 14:11 ABG HCO3 33.3 mmol/L (20.0-26.0) H 02/09/20 21:40 ABG O2 Saturation 88.9 % (95.0-99.0) L 02/09/20 21:40 ABG O2 Content 12.7 (0.0-44) 02/09/20 21:40 POC ABG Base Excess 3.6 02/11/20 14:11 ABG Base Excess 7.4 mmol/L (-2.0-3.0) H 02/09/20 21:40 ABG Hemoglobin 11.1 (12.0-17.5) L 02/11/20 14:11 ABG Oxyhemoglobin 84 (94-98) L 12/22/19 03:22 ABG Carboxyhemoglobin 2.3 % (0.0-5.0) 02/09/20 21:40 ABG Methemoglobin 0.6 % (0.0-1.5) 02/09/20 21:40 ABG Sodium 144.7 mmol/L (136.0-145.0) 02/11/20 14:11 ABG Potassium 3.5 mmol/L (3.40-4.50) 02/11/20 14:11 ABG Chloride 108.0 mmol/L (98-107) H 02/11/20 14:11 ABG Glucose 151 mg/dL (65-95) H 02/11/20 14:11 Oxyhemoglobin 86.3 % (95.0-99.0) L 02/09/20 21:40 Carboxyhemoglobin 0.7 (0.5-1.5) 12/22/19 03:22 FiO2 30.0 02/11/20 14:11 Sodium 145 mmol/L (137-145) 02/16/20 07:53 Potassium 3.7 mmol/L (3.6-5.0) 02/16/20 07:53 Chloride 107.9 mmol/L (98-107) H 02/16/20 07:53 Carbon Dioxide 27 mmol/L (22-30) 02/16/20 07:53 Anion Gap 14 mmol/L 02/16/20 07:53 BUN 38 mg/dL (9-20) H 02/16/20 07:53 Creatinine 0.6 mg/dL (0.8-1.3) L 02/16/20 07:53 Estimated GFR > 60 ml/min 02/16/20 07:53 BUN/Creatinine Ratio 63 % 02/16/20 07:53 Glucose 151 mg/dL (75-100) H 02/16/20 07:53 POC Glucose 162 mg/dL (70-105) H 02/17/20 11:36 Lactic Acid 1.60 mmol/L (0.7-2.0) 02/03/20 12:49 Calcium 8.8 mg/dL (8.4-10.2) 02/16/20 07:53 Ferritin 84.4 ng/mL (30.0-300.0) 11/24/19 04:53 Phosphorus 4.10 mg/dL (2.5-4.5) 01/31/20 19:24 Magnesium 2.40 mg/dL (1.7-2.3) H 02/10/20 07:40 Total Bilirubin 1.30 mg/dL (0.1-1.2) H 02/08/20 19:00 Direct Bilirubin 0.9 mg/dL (0-0.2) H 02/08/20 19:00 Indirect Bilirubin 0.4 mg/dL 02/08/20 19:00 Total Creatine Kinase 141 units/L (55-170) 11/24/19 02:53 CK-MB (CK-2) 4.3 ng/mL (0.0-4.0) H 11/24/19 02:53 AST 309 units/L (5-40) H 02/08/20 19:00 ALT 650 units/L (7-56) H 02/08/20 19:00 CK-MB (CK-2) Rel Index 3.0 (0-4) 11/24/19 02:53 Alkaline Phosphatase 109 units/L (35-129) 02/08/20 19:00 C-Reactive Protein 8.50 mg/dL (0.00-1.30) H 12/01/19 12:16 Ammonia 35.0 umol/L (25-60) 02/03/20 12:49 Lactate Dehydrogenase 228 units/L (91-180) H 12/19/19 04:45 Troponin T < 0.010 ng/mL (0.00-0.029) 01/19/20 01:35 NT-Pro-B Natriuret Pep 3866 pg/mL (0-900) H 01/01/20 10:40 Total Protein 6.2 g/dL (6.3-8.2) L 02/08/20 19:00 Albumin 2.7 g/dL (3.9-5) L 02/08/20 19:00 Albumin/Globulin Ratio 0.8 % 02/08/20 19:00 Procalcitonin 0.44 ng/mL (<0.15) 02/03/20 12:49 Arterial Blood Glucose 151 mg/dL (65-95) H 02/11/20 14:11 Arterial Blood Ionized Calcium 4.7 mg/dL (4.6-5.3) 02/11/20 14:11 Urine Color Cecy (Yellow) 12/31/19 18:04 Urine Turbidity Clear (Clear) 12/31/19 18:04 Urine pH 5.0 (5.0-7.0) 12/31/19 18:04 Ur Specific [place] 1.023 (1.003-1.030) 12/31/19 18:04 Urine Protein <15 mg/dl mg/dL (Negative) 12/31/19 18:04 Urine Glucose (UA) Neg mg/dL (Negative) 12/31/19 18:04 Urine Ketones Neg mg/dL (Negative) 12/31/19 18:04 Urine Blood Neg (Negative) 12/31/19 18:04 Urine Bacteria (Auto) 1+ /HPF (Negative) 12/03/19 06:03 Urine Nitrite Neg (Negative) 12/31/19 18:04 Urine Bilirubin Neg (Negative) 12/31/19 18:04 Urine Urobilinogen 4.0 mg/dL (<2.0) 12/31/19 18:04 Ur Leukocyte Esterase Neg (Negative) 12/31/19 18:04 Urine WBC (Auto) 2.0 /HPF (0.0-6.0) 12/31/19 18:04 Urine RBC (Auto) 3.0 /HPF (0.0-6.0) 12/31/19 18:04 U Epithel Cells (Auto) 2.0 /HPF (0-13.0) 12/31/19 18:04 Urine Mucus 1+ /HPF 12/31/19 18:04 Urine Creatinine 57.4 mg/dL (0.1-20.0) H 01/31/20 Unknown Urine Sodium 59 mmol/L 01/31/20 Unknown Vancomycin Trough 14.2 ug/mL (5.0-20.0) 12/13/19 15:01 Coronavirus (PCR) Negative (Negative) 12/29/19 10:07 Hepatitis A IgM Ab Non-reactive (NonReactive) 02/05/20 06:37 Hep Bs Antigen Non-reactive (Negative) 02/05/20 06:37 Hep B Core IgM Ab Non-reactive (NonReactive) 02/05/20 06:37 Hepatitis C Antibody Non-reactive (NonReactive) 02/05/20 06:37 Blood Type O POSITIVE 01/21/20 13:00 Antibody Screen Negative 01/21/20 13:00 - Diagnostic Impressions Diagnostic Impressions: Echocardiogram 11/29/19 07:37 Transthoracic Echocardiogram Indication: CHF BP: 116/72 HR: 33 Conclusions *The study is technically limited due to poor acoustic windows. *Global left ventricular systolic function is normal. *The estimated ejection fraction is 50-55%. *Mild concentric left ventricular hypertrophy is observed. *There is trace of mitral regurgitation. *There is mild tricuspid regurgitation. Findings Procedure Info: The study quality is poor. The study is technically limited due to poor acoustic windows. The study is technically limited due to patient body habitus. Left Ventricle: The left ventricular chamber size is normal. Mild concentric left ventricular hypertrophy is observed. Global left ventricular systolic function is normal. The estimated ejection fraction is 50-55%. Left Atrium: The left atrial chamber size is normal. Right Ventricle: The right ventricular cavity size is normal. Right Atrium: The right atrial cavity size is normal. Aortic Valve: The aortic valve leaflets are moderately thickened. There is trace of aortic regurgitation. There is no evidence of aortic stenosis. Mitral Valve: The mitral valve leaflets are mildly thickened. There is trace of mitral regurgitation. There is no evidence of mitral stenosis. Tricuspid Valve: There is mild tricuspid regurgitation. No pulmonary hypertension is noted. Pulmonic Valve: There is trace pulmonic regurgitation. Pericardium: There is no pericardial effusion. Aorta: There is no dilatation of the aortic root. Venous: The inferior vena cava appears normal in size. Contrast: Definity was used to optimize study. Intravenous contrast was used to enhance endocardial border definition. Measurements Chambers 2D Name Value Normal Range Ao root diameter (2D) 3.4 cm (2 - 3.7) Aortic Valve Name Value Normal Range AV Vmax 0.98 m/sec - AV VTI 16.76 cm - AV peak gradient 3.83 mmHg - AV mean gradient 2.57 mmHg - LVOT diameter 3.11 cm - LVOT Vmax 0.68 m/sec - LVOT VTI 11.52 cm - LVOT peak gradient 1.84 mmHg - LVOT mean gradient 1.27 mmHg - SV LVOT 87.31 ml - MALOU (continuity Vmax) 5.24 cm2 - MALOU (continuity VTI) 5.21 cm2 - Tricuspid Valve Name Value Normal Range IVC diameter 2.24 cm (1.2 - 2.3) Hoffman/IV: Voiding Method Indwelling Catheter IV Catheter Type [Right INT / Saline Lock Forearm] IV Catheter Type [Right Hand] Peripheral IV IV Catheter Type [Right Upper INT / Saline Lock arm] IV Catheter Type [Left Upper Mid-line arm] IV Catheter Type [Left Forearm INT / Saline Lock ] IV Catheter Type [Left Hand] Peripheral IV IV Catheter Type [Left Wrist] INT / Saline Lock IV Catheter Type [Right Peripheral IV Antecubital] Active Medications - Current Medications Current Medications: Generic Name Dose Route Start Last Admin Trade Name Freq PRN Reason Stop Dose Admin Acetaminophen 650 mg 12/31/19 11:43 02/13/20 11:09 Tylenol FEEDTUBE 650 mg Q6H PRN Administration Pain, Mild (1-3) Lipase/Protease/Amylase 1 each 01/09/20 12:01 Pancreaze 10,500 Unit FEEDTUBE PRN PRN For Clogged Feeding Tube Apixaban 5 mg 01/22/20 22:00 02/17/20 09:05 Eliquis PO 5 mg Q12HR CAR Administration Protocol Atorvastatin Calcium 40 mg 01/20/20 22:00 02/16/20 22:01 Lipitor PO 40 mg QHS CAR Administration Clopidogrel Bisulfate 75 mg 01/21/20 06:00 02/17/20 09:05 Plavix PO 75 mg QDAY CAR Administration Dextrose 50 ml 01/31/20 18:51 02/05/20 00:56 D50w (25gm) Syringe IV 50 ml Q30MIN PRN Administration Hypoglycemia Protocol Digoxin 0.125 mg 02/10/20 17:00 02/16/20 17:16 Lanoxin IV 0.125 mg DAILY@1700 CAR Administration Glycopyrrolate 2 mg 01/26/20 20:00 02/17/20 08:25 Glycopyrrolate PO 2 mg TID CAR Administration Haloperidol Lactate 5 mg 02/10/20 14:20 02/17/20 04:49 Haldol IV 5 mg Q6H PRN Administration Agitation Hydrophilic Ointment 1 applic 01/17/20 15:26 Vaseline Lip Therapy TP DIRECT PRN Dry Lips Insulin Human Regular 0 unit 02/01/20 18:00 02/17/20 11:56 Humulin R SUB-Q 2 unit Q6H CAR Administration Protocol Lansoprazole 30 mg 02/05/20 16:00 02/17/20 09:05 Prevacid Solutab FEEDTUBE 30 mg QDAY CAR Administration Metoprolol Tartrate 5 mg 01/11/20 08:00 02/16/20 22:00 Metoprolol IV 5 mg Q6H PRN Administration SEE INSTRUCTIONS Metoprolol Tartrate 50 mg 02/05/20 12:00 02/17/20 11:33 Metoprolol PO 50 mg Q6HR CAR Administration Midodrine 15 mg 02/04/20 16:00 02/17/20 11:33 Proamatine PO 15 mg TID@0800,1200,1600 CAR Administration Morphine Sulfate 2 mg 01/06/20 15:41 02/17/20 09:11 Morphine IV 2 mg Q4H PRN Administration Pain, Moderate (4-6) Multi-Ingred Cream/Lotion/Oil/Oint 1 applic 02/01/20 15:52 Artificial Tears Ophth Oint OU Q4HR PRN Dry Eye(s) Nitroglycerin 0.4 mg 01/19/20 21:09 01/20/20 03:03 Nitrostat SL 0.4 mg .Q5MIN PRN Administration Chest Pain Ondansetron HCl 4 mg 01/05/20 14:37 02/16/20 17:25 Zofran IV 4 mg Q8H PRN Administration Nausea And Vomiting Polyethylene Glycol 17 gm 12/04/19 22:00 02/16/20 20:59 Miralax 3350 PO 17 gm QHS ACR Administration Quetiapine Fumarate 300 mg 01/13/20 22:00 02/17/20 09:05 Seroquel PO 300 mg BID CAR Administration Scopolamine 1 each 01/07/20 20:00 01/07/20 21:08 Transderm-Scop TD 1 each Q72HR CAR Administration Simple Syrup 15 ml 01/09/20 12:01 Simple Syrup FEEDTUBE PRN PRN Hypoglycemia Simple Syrup 30 ml 01/09/20 12:01 Simple Syrup FEEDTUBE PRN PRN Hypoglycemia Sodium Bicarbonate 325 mg 01/09/20 12:01 Sodium Bicarbonate FEEDTUBE PRN PRN For Clogged Feeding Tube Sodium Chloride 10 ml 11/24/19 10:00 02/17/20 09:05 Sodium Chloride Flush Syringe 10 Ml IV 10 ml BID CAR Administration Tamsulosin HCl 0.8 mg 12/20/19 22:00 02/16/20 22:01 Flomax PO 0.8 mg QHS CAR Administration Nutrition/Malnutrition Assess - Dietary Evaluation Nutrition/Malnutrition Findings: Nutrition Notes Start: 11/24/19 12:22 Freq: Status: Active Protocol: Document 02/15/20 13:35 LP (Rec: 02/15/20 13:40 LP [email or web address]) Nutrition Notes Initial or Follow up Reassessment Current Diagnosis Coronary Artery Disease,Heart Failure,Respiratory Failure, Stroke,Hyperlipidemia Other Pertinent Diagnosis Partial SBO, pneu Current Diet Vital AF 1.2 at 75ml/hr Labs/Tests Na 149 BUN 40 Pertinent Medications Reviewed Height 6 ft 2 in Weight 110 kg [place] Body Weight (kg) 86.36 BMI 31.1 Weight change and time frame Wt change noted. Weight Status Obese Subjective/Other Information Trach site wound noted. Pt continues tolerating TF at goal rate. 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 Yes Is Patient Ambulatory and/or Out of Bed No REE-(House-[facility]-confined to bed) 2362.428 Kcal/Kg value to use for calculation 20 Approximate Energy Requirements Using 2200 kcal/Kg Calculation Used for Recommendations Kcal/kg Additional Notes Protein needs are 117-147g (1. 2-1.5 g/kg AdBW of 97.78kg) Fluid needs are 1.5L Nutrition Intervention Change Diet Order: Continue TF via PEG Nutrition Support: Vital AF 1.2 at 75ml/hr. increase Flush 250ml q4h for hypernatremia Flush 100ml q4h once hypernatremia is resolved Kcal 2,160 Protein (gm) 135 Fluid (mL) 1,460 Goal #1 Meet at least 75% of pt's energy and protein needs Anticipated Discharge Needs: unable to determine Follow-Up By: 02/19/20 Additional Comments Follow for TF tolerance, Na
--- NOTE | 2020-02-17 13:24 | Progress Note ---
Assessment and Plan - Patient Problems (1) Paroxysmal atrial fibrillation Current Visit: Yes Status: Acute Plan to address problem: Continue current management of atrial fibrillation, stable cardiac status. Subjective Date of service: 02/17/20 Principal diagnosis: Ac hypoxemic resp failure; Pneumonia; PUI COVID-19; CHF; COPD; HTN Interval history: Patient is asleep, on the vent via the trach. On classroom monitor, he has a persistent atrial fibrillation with a well-controlled rate. Blood pressure is stable. Objective Vital Signs Temp Pulse Pulse Resp BP Pulse Ox Pulse Ox 02/17/20 12:46 102 H 95/75 100 02/17/20 12:00 104 H 92 H 27 H 110/73 98 02/17/20 11:33 99 H 116/72 02/17/20 11:31 92 H 27 H 106/77 100 02/17/20 11:01 110 H 27 H 106/80 98 02/17/20 10:30 80 23 94/62 02/17/20 10:00 78 25 H 98/65 95 02/17/20 09:30 84 27 H 100/61 97 02/17/20 09:11 30 H 02/17/20 09:00 102 H 33 H 127/87 96 02/17/20 08:30 93 H 22 117/90 97 02/17/20 08:00 98.8 F 120 H 110 H 34 H 108/86 98 02/17/20 07:52 114 H 120/91 97 02/17/20 07:40 108 H 120/91 97 02/17/20 07:30 120 H 34 H 120/91 99 02/17/20 07:00 114 H 35 H 127/93 98 02/17/20 06:30 113 H 34 H 116/88 98 02/17/20 06:01 105 H 31 H 116/75 99 02/17/20 05:31 121 H 32 H 115/86 96 02/17/20 05:01 114 H 26 H 119/78 98 02/17/20 05:00 113 H 115/83 02/17/20 04:31 100 H 29 H 115/83 95 02/17/20 04:01 108 H 26 H 109/83 98 02/17/20 04:00 97.1 F L 02/17/20 03:59 110 H 25 H 95 02/17/20 03:55 110 H 108/79 99 02/17/20 03:53 107 H 108/79 99 02/17/20 03:51 97 02/17/20 03:30 112 H 21 108/79 97 02/17/20 03:00 95 H 23 99/74 96 02/17/20 02:30 94 H 25 H 95/76 98 02/17/20 02:00 96 H 28 H 101/77 98 02/17/20 01:30 94 H 26 H 99/81 02/17/20 01:00 85 24 109/71 97 02/17/20 00:30 94 H 28 H 112/82 97 02/17/20 00:13 103 H 113/74 100 02/17/20 00:01 96 H 29 H 113/74 97 02/17/20 00:00 98.4 F 88 88 27 H 95 02/16/20 23:30 94 H 22 106/72 02/16/20 23:00 118 H 32 H 107/88 02/16/20 22:30 115 H 29 H 130/89 98 02/16/20 22:00 116 H 28 H 129/97 02/16/20 21:30 110 H 13 119/91 99 02/16/20 21:22 109 H 119/95 98 02/16/20 21:00 117 H 29 H 119/95 99 02/16/20 20:30 123 H 26 H 119/90 98 02/16/20 20:00 98.5 F 100 H 94 H 25 H 110/81 96 02/16/20 19:30 106 H 27 H 116/83 98 02/16/20 19:00 105 H 30 H 112/91 97 02/16/20 18:39 111 H 30 H 116/87 97 02/16/20 18:30 106 H 29 H 116/87 97 02/16/20 18:00 106 H 32 H 112/80 95 02/16/20 17:40 22 02/16/20 17:30 104 H 32 H 116/85 99 02/16/20 17:16 105 H 114/90 02/16/20 17:00 108 H 16 114/90 97 02/16/20 16:31 122 H 18 120/93 96 02/16/20 16:07 103 H 123/94 99 02/16/20 16:01 132 H 30 H 123/94 98 02/16/20 16:00 98.4 F 110 H 25 H 95 02/16/20 15:31 121 H 24 102/84 98 02/16/20 15:20 98 02/16/20 15:00 117 H 28 H 109/82 96 02/16/20 14:30 93 H 33 H 102/81 94 02/16/20 14:00 137 H 31 H 114/84 95 02/16/20 13:30 111 H 28 H 114/84 - Physical Examination General: Other (s/p trach) HEENT: Positive: PERRL Neck: Positive: neck supple Cardiac: Positive: irregularly irregular Lungs: Positive: Decreased Breath Sounds Neuro: Positive: Weakness Abdomen: Positive: Soft Skin: Positive: Clear Extremities: Absent: edema - Allied health notes Allied health notes reviewed: nursing
[2020-02-17] MEDS: DIGOXIN 0.5 MG/2 ML INJ IV SCH (16:16)
[2020-02-18] MEDS: INSULIN REGULAR, HUMAN 100 UNIT/ML 3ML VIAL SUB-Q SCH ×4 (03:46→17:46)
[2020-02-18] MEDS: METOPROLOL TARTRATE 50 MG TAB PO SCH ×4 (03:47→17:44)
[2020-02-18] MEDS: MORPHINE 2 MG/1 ML INJ IV PRN (03:48)
[2020-02-18] MEDS: TAMSULOSIN 0.4 MG CAP PO SCH ×2 (03:48→21:22)
[2020-02-18] MEDS: POLYETHYLENE GLYCOL 3350 17 GM POWDER PO SCH ×2 (03:55→21:21)
[2020-02-18] MEDS: APIXABAN 5 MG TAB PO SCH ×3 (03:55→21:22)
[2020-02-18] MEDS: QUEtiapine 100 MG TAB PO SCH ×3 (03:55→21:23)
[2020-02-18] MEDS: MIDODRINE 5 MG TAB PO SCH ×3 (07:48→16:20)
[2020-02-18] MEDS: GLYCOPYRROLATE 2 MG TAB PO SCH ×3 (07:48→20:17)
[2020-02-18] MEDS: CLOPIDOGREL 75 MG TAB PO SCH (09:39)
[2020-02-18] MEDS: LANSOPRAZOLE 30 MG SOLUTAB FEEDTUBE SCH (09:39)
--- NOTE | 2020-02-18 10:08 | Progress Note ---
Assessment and Plan Acute hypoxemic respiratory failure Bilateral pneumonia, community acquired. Acute LLL branch P.E. Acute DVT Person under investigation for COVID-19 infection. Acute congestive heart failure exacerbation. History of cerebrovascular accident. Acute chronic obstructive pulmonary disease exacerbation. Hypertension and hypertensive urgency at presentation. History of arthritis. Leukocytosis. Lactic acidosis. Oropharyngeal dysphagia - hold t-piece trials for now - repeat CXR and address - continue PSV trials as tolerated - continue to rest on AC qhs - continue Robinul & Scopolamine for secretion control - continue care as below otherwise; - daily SAT's and SBT assessment as tolerated - rate control per cardiology team - continue prn haldol for agitation to avoid hypoventilation (stopped Lorazepam) - continue Flomax - antiinfective's per ID rec's - Midodrine for BP support - prn mucomyst nebs re: secretions - continue full anticoagulation with Apixaban - continue seroquel for anxiolysis / delirium - COVID isolation per facility protocol - prn diuresis while following electrolytes / I's & O's - continue to wean oxygen for O2 sat's > 92% - continue bronchodilators with routine trach care and pulmonary hygiene per RT - continue Robinul & Scopolamine for secretion control - VAP bundle addressed (Aspiration precautions, HOB >40) - continue to wean per pulmonary driven protocols - sedation target is RASS 0 to -1 - continue prn analgesia per CPOT score - follow clinically re: fever curves / trend WBC - Avoid delirium (no benzodiazepines if they can be avoided) - Maintain sleep-wake cycle - enteral nutrition at goal rate as tolerated - continue accucheck's with glycemic control per SSI for target blood glucose goal of 140-180 mg/dL while critically ill; Avoid hypoglycemia - for VTE he is on IV Heparin - continue stress ulcer prophylaxis with Famotidine - continue mobility protocols for pressure ulcer prophylaxis - continue fall precautions - continue wound care management per RN / WCT - Supportive transfusions to keep HgB>7g/dL - CXR's and ABG's prn - Continue to monitor neurologic function - Continue chronic home medications - Continue all supportive care ........ re-evaluate in am & prn CONDITION: CRITICAL PROGNOSIS: GUARDED CODE STATUS: FULL CODE The high probability of a clinically significant, sudden or life threatening deterioration of the [Respiratory, cardiovascular & neurological] system(s) required my full and direct attention, intervention and personal management. The aggregate critical care time was [32] minutes without overlap. Time includes spent on [x] Data Review and interpretation [x] Patient assessment and monitoring of vital signs [x] Documentation [x] Medication orders and management Subjective Date of service: 02/18/20 Principal diagnosis: Ac hypoxemic resp failure; Pneumonia; PUI COVID-19; CHF; COPD; HTN Interval history: Patient is seen today for: Acute hypoxemic respiratory failure; Adan. Pneumonia (CAP); PUI COVID-19 infection; AE-CHF; AE-COPD; H/O CVA; HTN Seen and examined at bedside; 24 hour events reviewed; nursing and respiratory care staff consulted; no adverse overnight events reported to me; resting peacefully in bed; on PSV; failed t-piece trial very quickly yesterday with severe bradycardia; denies acute chest pains but still SOB; no N/V/F/C Objective Vital Signs - 12hr 02/17/20 02/17/20 02/17/20 22:30 23:00 23:30 Temperature Pulse Rate 102 H 110 H 94 H Pulse Rate [ From Monitor] Respiratory 25 H 31 H 27 H Rate Blood Pressure 110/89 123/82 111/84 O2 Sat by Pulse Oximetry O2 Sat by Pulse Oximetry [ Assessment] 02/17/20 02/18/20 02/18/20 23:50 00:00 00:02 Temperature 97.4 F L Pulse Rate 109 H 100 H Pulse Rate [ 94 H From Monitor] Respiratory 25 H Rate Blood Pressure 113/89 113/89 O2 Sat by Pulse 98 Oximetry O2 Sat by Pulse Oximetry [ Assessment] 02/18/20 02/18/20 02/18/20 00:31 01:00 01:30 Temperature Pulse Rate 92 H 94 H 98 H Pulse Rate [ From Monitor] Respiratory 26 H 24 21 Rate Blood Pressure 108/73 108/70 116/81 O2 Sat by Pulse 97 Oximetry O2 Sat by Pulse Oximetry [ Assessment] 02/18/20 02/18/20 02/18/20 01:33 02:00 02:30 Temperature Pulse Rate 89 93 H Pulse Rate [ From Monitor] Respiratory 28 H 26 H Rate Blood Pressure 110/74 108/74 O2 Sat by Pulse 100 Oximetry O2 Sat by Pulse 99 Oximetry [ Assessment] 11/02/18/20 02/18/20 03:00 03:31 03:40 Temperature Pulse Rate 88 100 H 100 H Pulse Rate [ From Monitor] Respiratory 26 H 27 H Rate Blood Pressure 107/80 110/90 O2 Sat by Pulse 98 Oximetry O2 Sat by Pulse Oximetry [ Assessment] 02/18/20 02/18/20 02/18/20 03:41 03:47 04:00 Temperature 97.4 F L Pulse Rate 110 H 91 H Pulse Rate [ 100 H From Monitor] Respiratory 23 23 Rate Blood Pressure 110/99 106/80 O2 Sat by Pulse 98 92 Oximetry O2 Sat by Pulse Oximetry [ Assessment] 02/18/20 02/18/20 02/18/20 04:22 04:30 05:00 Temperature Pulse Rate 79 94 H 103 H Pulse Rate [ From Monitor] Respiratory 26 H 21 Rate Blood Pressure 106/80 103/82 101/74 O2 Sat by Pulse 98 96 94 Oximetry O2 Sat by Pulse Oximetry [ Assessment] 02/18/20 02/18/20 02/18/20 05:30 06:00 06:09 Temperature Pulse Rate 95 H 98 H 94 H Pulse Rate [ From Monitor] Respiratory 20 32 H Rate Blood Pressure 105/73 109/79 105/73 O2 Sat by Pulse 97 97 Oximetry O2 Sat by Pulse Oximetry [ Assessment] 02/18/20 02/18/20 02/18/20 06:31 07:00 07:30 Temperature Pulse Rate 97 H 106 H 100 H Pulse Rate [ From Monitor] Respiratory 29 H 25 H 29 H Rate Blood Pressure 114/77 114/77 113/86 O2 Sat by Pulse 95 98 94 Oximetry O2 Sat by Pulse Oximetry [ Assessment] 02/18/20 02/18/20 02/18/20 08:00 08:20 08:22 Temperature 98.0 F Pulse Rate 97 H 91 H 97 H Pulse Rate [ 117 H From Monitor] Respiratory 21 26 H Rate Blood Pressure 102/58 102/58 102/58 O2 Sat by Pulse 96 100 98 Oximetry O2 Sat by Pulse Oximetry [ Assessment] Constitutional: appears uncomfortable, other (elelelderly and obese male, normocephalic with mildly increased respiratory effort at rest) Eyes: non-icteric ENT: oropharynx moist, other (+ midline tracheostomy) Neck: supple, no JVD Effort: mildly labored Ascultation: Bilateral: diminished breath sounds, rhonchi (and referred upper airway sounds) Percussion: Bilateral: not dull Cardiovascular: irregular rhythm, other (flow murmur) Gastrointestinal: normoactive bowel sounds, soft, non-tender, non-distended (protuberant), other (protuberant; PEG in place) Integumentary: normal Extremities: no cyanosis, pulses normal, no ischemia or petechiae, edema (bilateral lower) Neurologic: non-focal exam (moves extremities), pupils equal and round, CN II- XII normal, other (intermittent agitation) Psychiatric: anxious CBC and BMP: 02/15/20 06:59 02/16/20 07:53 ABG, PT/INR, D-dimer: ABG ABG pH 7.502 (7.320-7.450) H 02/11/20 14:11 POC ABG pCO2 34.8 mmHg (32.0-48.0) 02/11/20 14:11 ABG pCO2 54.1 mm Hg 02/09/20 21:40 POC ABG pO2 77.7 mmHg (83-108) L 02/11/20 14:11 ABG pO2 59.8 mm Hg (80.0-90.0) L 02/09/20 21:40 POC ABG HCO3 26.7 02/11/20 14:11 ABG O2 Saturation 88.9 % (95.0-99.0) L 02/09/20 21:40 PT/INR, D-dimer PT 27.0 Sec. (12.2-14.9) H 02/07/20 15:03 INR 2.46 (0.87-1.13) H 02/07/20 15:03 Abnormal lab findings: Abnormal Labs 11/24/19 11/24/19 11/24/19 02:53 02:53 03:45 WBC 14.3 H RBC Hgb Hct MCHC RDW 17.2 H MCV MCH Lymph % (Auto) [place] % (Auto) [place] # Eos # Lymph # (Auto) [place] # (Auto) Eos # (Auto) Seg Neutrophils % Seg Neuts % (Manual) Baso # (Auto) Lymphocytes % (Manual) Monocytes % (Manual) Eosinophils % (Manual) Basophils % (Manual) Seg Neutrophils # Seg Neutrophils # Man 8.3 H Lymphocytes # (Manual) Monocytes # (Manual) 0.9 H Eosinophils # (Manual) Nucleated RBC % Basophils # (Manual) PT INR APTT Heparin Anti-Xa Level ABG pH 7.313 L POC ABG pO2 ABG pO2 102.8 H ABG HCO3 ABG O2 Saturation ABG Base Excess -2.9 L POC ABG pCO2 ABG Hemoglobin ABG Oxyhemoglobin ABG Chloride ABG Glucose Oxyhemoglobin 93.9 L Sodium Potassium Chloride Carbon Dioxide BUN Creatinine Glucose 195 H POC Glucose Lactic Acid Calcium Phosphorus Magnesium AST ALT Lactate Dehydrogenase Total Bilirubin Direct Bilirubin CK-MB (CK-2) 4.3 H C-Reactive Protein NT-Pro-B Natriuret Pep 1181 H Total Protein Albumin Arterial Blood Glucose Urine WBC (Auto) Urine Creatinine 11/24/19 11/24/19 11/24/19 04:53 04:53 10:37 WBC RBC Hgb Hct MCHC RDW MCV MCH Lymph % (Auto) [place] % (Auto) [place] # Eos # Lymph # (Auto) [place] # (Auto) Eos # (Auto) Seg Neutrophils % Seg Neuts % (Manual) Baso # (Auto) Lymphocytes % (Manual) Monocytes % (Manual) Eosinophils % (Manual) Basophils % (Manual) Seg Neutrophils # Seg Neutrophils # Man Lymphocytes # (Manual) Monocytes # (Manual) Eosinophils # (Manual) Nucleated RBC % Basophils # (Manual) PT INR APTT Heparin Anti-Xa Level ABG pH POC ABG pO2 ABG pO2 ABG HCO3 ABG O2 Saturation ABG Base Excess POC ABG pCO2 ABG Hemoglobin ABG Oxyhemoglobin ABG Chloride ABG Glucose Oxyhemoglobin Sodium Potassium Chloride Carbon Dioxide BUN Creatinine Glucose 162 H POC Glucose Lactic Acid 2.40 H* 2.50 H* Calcium Phosphorus Magnesium AST ALT Lactate Dehydrogenase 240 H Total Bilirubin Direct Bilirubin CK-MB (CK-2) C-Reactive Protein NT-Pro-B Natriuret Pep Total Protein Albumin Arterial Blood Glucose Urine WBC (Auto) Urine Creatinine 11/24/19 11/24/19 11/24/19 12:21 14:50 19:54 WBC RBC Hgb Hct MCHC RDW MCV MCH Lymph % (Auto) [place] % (Auto) [place] # Eos # Lymph # (Auto) [place] # (Auto) Eos # (Auto) Seg Neutrophils % Seg Neuts % (Manual) Baso # (Auto) Lymphocytes % (Manual) Monocytes % (Manual) Eosinophils % (Manual) Basophils % (Manual) Seg Neutrophils # Seg Neutrophils # Man Lymphocytes # (Manual) Monocytes # (Manual) Eosinophils # (Manual) Nucleated RBC % Basophils # (Manual) PT INR APTT Heparin Anti-Xa Level ABG pH POC ABG pO2 ABG pO2 ABG HCO3 ABG O2 Saturation ABG Base Excess POC ABG pCO2 ABG Hemoglobin ABG Oxyhemoglobin ABG Chloride ABG Glucose Oxyhemoglobin Sodium Potassium Chloride Carbon Dioxide BUN Creatinine Glucose POC Glucose 145 H 143 H 124 H Lactic Acid Calcium Phosphorus Magnesium AST ALT Lactate Dehydrogenase Total Bilirubin Direct Bilirubin CK-MB (CK-2) C-Reactive Protein NT-Pro-B Natriuret Pep Total Protein Albumin Arterial Blood Glucose Urine WBC (Auto) Urine Creatinine 11/25/19 11/25/19 11/25/19 00:18 03:18 05:11 WBC 13.7 H RBC Hgb Hct MCHC RDW 17.1 H MCV MCH Lymph % (Auto) 10.8 L [place] % (Auto) 8.7 H [place] # 1.2 H Eos # Lymph # (Auto) [place] # (Auto) Eos # (Auto) Seg Neutrophils % 80.2 H Seg Neuts % (Manual) Baso # (Auto) Lymphocytes % (Manual) Monocytes % (Manual) Eosinophils % (Manual) Basophils % (Manual) Seg Neutrophils # 11.0 H Seg Neutrophils # Man Lymphocytes # (Manual) Monocytes # (Manual) Eosinophils # (Manual) Nucleated RBC % Basophils # (Manual) PT INR APTT Heparin Anti-Xa Level ABG pH 7.333 L POC ABG pO2 ABG pO2 61.2 L ABG HCO3 ABG O2 Saturation 90.2 L ABG Base Excess POC ABG pCO2 ABG Hemoglobin 13.7 L ABG Oxyhemoglobin ABG Chloride ABG Glucose Oxyhemoglobin 88.2 L Sodium Potassium Chloride Carbon Dioxide BUN Creatinine Glucose POC Glucose 109 H Lactic Acid Calcium Phosphorus Magnesium AST ALT Lactate Dehydrogenase Total Bilirubin Direct Bilirubin CK-MB (CK-2) C-Reactive Protein NT-Pro-B Natriuret Pep Total Protein Albumin Arterial Blood Glucose Urine WBC (Auto) Urine Creatinine 11/25/19 11/25/19 11/26/19 05:11 11:40 03:12 WBC RBC Hgb Hct MCHC RDW MCV MCH Lymph % (Auto) [place] % (Auto) [place] # Eos # Lymph # (Auto) [place] # (Auto) Eos # (Auto) Seg Neutrophils % Seg Neuts % (Manual) Baso # (Auto) Lymphocytes % (Manual) Monocytes % (Manual) Eosinophils % (Manual) Basophils % (Manual) Seg Neutrophils # Seg Neutrophils # Man Lymphocytes # (Manual) Monocytes # (Manual) Eosinophils # (Manual) Nucleated RBC % Basophils # (Manual) PT INR APTT Heparin Anti-Xa Level ABG pH POC ABG pO2 ABG pO2 155.1 H ABG HCO3 27.8 H ABG O2 Saturation ABG Base Excess POC ABG pCO2 ABG Hemoglobin 12.2 L ABG Oxyhemoglobin ABG Chloride ABG Glucose Oxyhemoglobin Sodium Potassium Chloride Carbon Dioxide BUN 23 H Creatinine Glucose 110 H POC Glucose 108 H Lactic Acid Calcium Phosphorus Magnesium AST ALT Lactate Dehydrogenase Total Bilirubin Direct Bilirubin CK-MB (CK-2) C-Reactive Protein NT-Pro-B Natriuret Pep Total Protein Albumin Arterial Blood Glucose Urine WBC (Auto) Urine Creatinine 11/26/19 11/26/19 11/26/19 06:17 10:43 10:43 WBC 11.4 H RBC Hgb Hct MCHC RDW 17.1 H MCV MCH Lymph % (Auto) [place] % (Auto) [place] # Eos # Lymph # (Auto) [place] # (Auto) Eos # (Auto) Seg Neutrophils % Seg Neuts % (Manual) Baso # (Auto) Lymphocytes % (Manual) Monocytes % (Manual) Eosinophils % (Manual) Basophils % (Manual) Seg Neutrophils # Seg Neutrophils # Man Lymphocytes # (Manual) Monocytes # (Manual) Eosinophils # (Manual) Nucleated RBC % Basophils # (Manual) PT INR APTT Heparin Anti-Xa Level ABG pH POC ABG pO2 ABG pO2 ABG HCO3 ABG O2 Saturation ABG Base Excess POC ABG pCO2 ABG Hemoglobin ABG Oxyhemoglobin ABG Chloride ABG Glucose Oxyhemoglobin Sodium Potassium Chloride Carbon Dioxide BUN 29 H Creatinine Glucose POC Glucose 107 H Lactic Acid Calcium Phosphorus Magnesium AST ALT Lactate Dehydrogenase Total Bilirubin Direct Bilirubin CK-MB (CK-2) C-Reactive Protein NT-Pro-B Natriuret Pep Total Protein Albumin Arterial Blood Glucose Urine WBC (Auto) Urine Creatinine 11/26/19 11/27/19 11/27/19 17:11 01:53 04:11 WBC RBC Hgb Hct MCHC RDW MCV MCH Lymph % (Auto) [place] % (Auto) [place] # Eos # Lymph # (Auto) [place] # (Auto) Eos # (Auto) Seg Neutrophils % Seg Neuts % (Manual) Baso # (Auto) Lymphocytes % (Manual) Monocytes % (Manual) Eosinophils % (Manual) Basophils % (Manual) Seg Neutrophils # Seg Neutrophils # Man Lymphocytes # (Manual) Monocytes # (Manual) Eosinophils # (Manual) Nucleated RBC % Basophils # (Manual) PT INR APTT Heparin Anti-Xa Level ABG pH POC ABG pO2 ABG pO2 ABG HCO3 29.2 H ABG O2 Saturation ABG Base Excess 3.4 H POC ABG pCO2 ABG Hemoglobin 13.3 L ABG Oxyhemoglobin ABG Chloride ABG Glucose Oxyhemoglobin 94.5 L Sodium Potassium Chloride Carbon Dioxide BUN Creatinine Glucose POC Glucose 113 H 108 H Lactic Acid Calcium Phosphorus Magnesium AST ALT Lactate Dehydrogenase Total Bilirubin Direct Bilirubin CK-MB (CK-2) C-Reactive Protein NT-Pro-B Natriuret Pep Total Protein Albumin Arterial Blood Glucose Urine WBC (Auto) Urine Creatinine 11/27/19 11/28/19 11/28/19 05:27 05:00 05:25 WBC RBC Hgb Hct MCHC RDW MCV MCH Lymph % (Auto) [place] % (Auto) [place] # Eos # Lymph # (Auto) [place] # (Auto) Eos # (Auto) Seg Neutrophils % Seg Neuts % (Manual) Baso # (Auto) Lymphocytes % (Manual) Monocytes % (Manual) Eosinophils % (Manual) Basophils % (Manual) Seg Neutrophils # Seg Neutrophils # Man Lymphocytes # (Manual) Monocytes # (Manual) Eosinophils # (Manual) Nucleated RBC % Basophils # (Manual) PT INR APTT Heparin Anti-Xa Level ABG pH POC ABG pO2 68.1 L ABG pO2 ABG HCO3 ABG O2 Saturation ABG Base Excess POC ABG pCO2 ABG Hemoglobin ABG Oxyhemoglobin 91.2 L ABG Chloride ABG Glucose Oxyhemoglobin Sodium Potassium Chloride Carbon Dioxide BUN Creatinine Glucose POC Glucose 111 H 110 H Lactic Acid Calcium Phosphorus Magnesium AST ALT Lactate Dehydrogenase Total Bilirubin Direct Bilirubin CK-MB (CK-2) C-Reactive Protein NT-Pro-B Natriuret Pep Total Protein Albumin Arterial Blood Glucose Urine WBC (Auto) Urine Creatinine 11/28/19 11/28/19 11/28/19 12:08 13:47 13:47 WBC 11.3 H RBC Hgb Hct MCHC RDW 16.1 H MCV MCH Lymph % (Auto) [place] % (Auto) 9.9 H [place] # 1.1 H Eos # Lymph # (Auto) [place] # (Auto) Eos # (Auto) Seg Neutrophils % 71.4 H Seg Neuts % (Manual) Baso # (Auto) Lymphocytes % (Manual) Monocytes % (Manual) Eosinophils % (Manual) Basophils % (Manual) Seg Neutrophils # 8.1 H Seg Neutrophils # Man Lymphocytes # (Manual) Monocytes # (Manual) Eosinophils # (Manual) Nucleated RBC % Basophils # (Manual) PT INR APTT Heparin Anti-Xa Level ABG pH POC ABG pO2 ABG pO2 ABG HCO3 ABG O2 Saturation ABG Base Excess POC ABG pCO2 ABG Hemoglobin ABG Oxyhemoglobin ABG Chloride ABG Glucose Oxyhemoglobin Sodium Potassium Chloride Carbon Dioxide BUN 23 H Creatinine Glucose 123 H POC Glucose 112 H Lactic Acid Calcium Phosphorus Magnesium AST ALT Lactate Dehydrogenase Total Bilirubin Direct Bilirubin CK-MB (CK-2) C-Reactive Protein NT-Pro-B Natriuret Pep Total Protein Albumin 3.7 L Arterial Blood Glucose Urine WBC (Auto) Urine Creatinine 11/28/19 11/29/19 11/29/19 17:26 03:55 17:04 WBC RBC Hgb Hct MCHC RDW MCV MCH Lymph % (Auto) [place] % (Auto) [place] # Eos # Lymph # (Auto) [place] # (Auto) Eos # (Auto) Seg Neutrophils % Seg Neuts % (Manual) Baso # (Auto) Lymphocytes % (Manual) Monocytes % (Manual) Eosinophils % (Manual) Basophils % (Manual) Seg Neutrophils # Seg Neutrophils # Man Lymphocytes # (Manual) Monocytes # (Manual) Eosinophils # (Manual) Nucleated RBC % Basophils # (Manual) PT INR APTT Heparin Anti-Xa Level ABG pH POC ABG pO2 ABG pO2 65.7 L ABG HCO3 28.3 H ABG O2 Saturation 93.9 L ABG Base Excess 3.6 H POC ABG pCO2 ABG Hemoglobin 13.3 L ABG Oxyhemoglobin ABG Chloride ABG Glucose Oxyhemoglobin 91.5 L Sodium Potassium Chloride Carbon Dioxide BUN Creatinine Glucose POC Glucose 123 H 119 H Lactic Acid Calcium Phosphorus Magnesium AST ALT Lactate Dehydrogenase Total Bilirubin Direct Bilirubin CK-MB (CK-2) C-Reactive Protein NT-Pro-B Natriuret Pep Total Protein Albumin Arterial Blood Glucose Urine WBC (Auto) Urine Creatinine 11/30/19 11/30/1920 04:17 04:17 04:56 WBC 13.4 H RBC Hgb Hct MCHC RDW 15.6 H MCV MCH Lymph % (Auto) [place] % (Auto) [place] # Eos # Lymph # (Auto) [place] # (Auto) Eos # (Auto) Seg Neutrophils % Seg Neuts % (Manual) Baso # (Auto) Lymphocytes % (Manual) Monocytes % (Manual) Eosinophils % (Manual) Basophils % (Manual) Seg Neutrophils # Seg Neutrophils # Man Lymphocytes # (Manual) Monocytes # (Manual) Eosinophils # (Manual) Nucleated RBC % Basophils # (Manual) PT INR APTT Heparin Anti-Xa Level ABG pH POC ABG pO2 ABG pO2 56.3 L ABG HCO3 29.3 H ABG O2 Saturation 91.5 L ABG Base Excess 4.7 H POC ABG pCO2 ABG Hemoglobin 12.1 L ABG Oxyhemoglobin ABG Chloride ABG Glucose Oxyhemoglobin 89.2 L Sodium 147 H Potassium Chloride Carbon Dioxide BUN 30 H Creatinine Glucose 124 H POC Glucose Lactic Acid Calcium Phosphorus Magnesium AST ALT Lactate Dehydrogenase Total Bilirubin Direct Bilirubin CK-MB (CK-2) C-Reactive Protein NT-Pro-B Natriuret Pep Total Protein Albumin 3.8 L Arterial Blood Glucose Urine WBC (Auto) Urine Creatinine 11/30/19 11/30/19 11/30/19 05:51 11:54 18:17 WBC RBC Hgb Hct MCHC RDW MCV MCH Lymph % (Auto) [place] % (Auto) [place] # Eos # Lymph # (Auto) [place] # (Auto) Eos # (Auto) Seg Neutrophils % Seg Neuts % (Manual) Baso # (Auto) Lymphocytes % (Manual) Monocytes % (Manual) Eosinophils % (Manual) Basophils % (Manual) Seg Neutrophils # Seg Neutrophils # Man Lymphocytes # (Manual) Monocytes # (Manual) Eosinophils # (Manual) Nucleated RBC % Basophils # (Manual) PT INR APTT Heparin Anti-Xa Level ABG pH POC ABG pO2 ABG pO2 ABG HCO3 ABG O2 Saturation ABG Base Excess POC ABG pCO2 ABG Hemoglobin ABG Oxyhemoglobin ABG Chloride ABG Glucose Oxyhemoglobin Sodium Potassium Chloride Carbon Dioxide BUN Creatinine Glucose POC Glucose 127 H 115 H 143 H Lactic Acid Calcium Phosphorus Magnesium AST ALT Lactate Dehydrogenase Total Bilirubin Direct Bilirubin CK-MB (CK-2) C-Reactive Protein NT-Pro-B Natriuret Pep Total Protein Albumin Arterial Blood Glucose Urine WBC (Auto) Urine Creatinine 12/01/19 12/01/19 12/01/19 01:18 05:22 12:16 WBC RBC Hgb Hct MCHC RDW MCV MCH Lymph % (Auto) [place] % (Auto) [place] # Eos # Lymph # (Auto) [place] # (Auto) Eos # (Auto) Seg Neutrophils % Seg Neuts % (Manual) Baso # (Auto) Lymphocytes % (Manual) Monocytes % (Manual) Eosinophils % (Manual) Basophils % (Manual) Seg Neutrophils # Seg Neutrophils # Man Lymphocytes # (Manual) Monocytes # (Manual) Eosinophils # (Manual) Nucleated RBC % Basophils # (Manual) PT INR APTT Heparin Anti-Xa Level ABG pH POC ABG pO2 ABG pO2 ABG HCO3 ABG O2 Saturation ABG Base Excess POC ABG pCO2 ABG Hemoglobin ABG Oxyhemoglobin ABG Chloride ABG Glucose Oxyhemoglobin Sodium Potassium 3.5 L Chloride 107.8 H Carbon Dioxide BUN 37 H Creatinine Glucose 157 H POC Glucose 118 H 148 H Lactic Acid Calcium 8.2 L D Phosphorus Magnesium AST 48 H ALT 60 H Lactate Dehydrogenase 194 H Total Bilirubin Direct Bilirubin CK-MB (CK-2) C-Reactive Protein 8.50 H NT-Pro-B Natriuret Pep Total Protein 5.5 L Albumin 2.8 L Arterial Blood Glucose Urine WBC (Auto) Urine Creatinine 12/01/19 12/02/19 12/02/19 18:04 00:05 05:16 WBC 11.4 H RBC Hgb Hct MCHC RDW 15.9 H MCV MCH Lymph % (Auto) [place] % (Auto) 9.9 H [place] # 1.1 H Eos # Lymph # (Auto) [place] # (Auto) Eos # (Auto) Seg Neutrophils % 70.3 H Seg Neuts % (Manual) Baso # (Auto) Lymphocytes % (Manual) Monocytes % (Manual) Eosinophils % (Manual) Basophils % (Manual) Seg Neutrophils # 8.0 H Seg Neutrophils # Man Lymphocytes # (Manual) Monocytes # (Manual) Eosinophils # (Manual) Nucleated RBC % Basophils # (Manual) PT INR APTT Heparin Anti-Xa Level ABG pH POC ABG pO2 ABG pO2 ABG HCO3 ABG O2 Saturation ABG Base Excess POC ABG pCO2 ABG Hemoglobin ABG Oxyhemoglobin ABG Chloride ABG Glucose Oxyhemoglobin Sodium Potassium Chloride Carbon Dioxide BUN Creatinine Glucose POC Glucose 143 H 107 H Lactic Acid Calcium Phosphorus Magnesium AST ALT Lactate Dehydrogenase Total Bilirubin Direct Bilirubin CK-MB (CK-2) C-Reactive Protein NT-Pro-B Natriuret Pep Total Protein Albumin Arterial Blood Glucose Urine WBC (Auto) Urine Creatinine 12/02/19 12/02/19 12/02/19 05:16 06:03 11:52 WBC RBC Hgb Hct MCHC RDW MCV MCH Lymph % (Auto) [place] % (Auto) [place] # Eos # Lymph # (Auto) [place] # (Auto) Eos # (Auto) Seg Neutrophils % Seg Neuts % (Manual) Baso # (Auto) Lymphocytes % (Manual) Monocytes % (Manual) Eosinophils % (Manual) Basophils % (Manual) Seg Neutrophils # Seg Neutrophils # Man Lymphocytes # (Manual) Monocytes # (Manual) Eosinophils # (Manual) Nucleated RBC % Basophils # (Manual) PT INR APTT Heparin Anti-Xa Level ABG pH POC ABG pO2 ABG pO2 ABG HCO3 ABG O2 Saturation ABG Base Excess POC ABG pCO2 ABG Hemoglobin ABG Oxyhemoglobin ABG Chloride ABG Glucose Oxyhemoglobin Sodium 146 H Potassium Chloride Carbon Dioxide BUN 28 H Creatinine Glucose 123 H POC Glucose 110 H 152 H Lactic Acid Calcium Phosphorus Magnesium AST ALT Lactate Dehydrogenase Total Bilirubin Direct Bilirubin CK-MB (CK-2) C-Reactive Protein NT-Pro-B Natriuret Pep Total Protein Albumin Arterial Blood Glucose Urine WBC (Auto) Urine Creatinine 12/02/19 12/02/19 12/02/19 12:58 17:58 23:36 WBC RBC Hgb Hct MCHC RDW MCV MCH Lymph % (Auto) [place] % (Auto) [place] # Eos # Lymph # (Auto) [place] # (Auto) Eos # (Auto) Seg Neutrophils % Seg Neuts % (Manual) Baso # (Auto) Lymphocytes % (Manual) Monocytes % (Manual) Eosinophils % (Manual) Basophils % (Manual) Seg Neutrophils # Seg Neutrophils # Man Lymphocytes # (Manual) Monocytes # (Manual) Eosinophils # (Manual) Nucleated RBC % Basophils # (Manual) PT INR APTT Heparin Anti-Xa Level ABG pH POC ABG pO2 78.1 L ABG pO2 ABG HCO3 ABG O2 Saturation ABG Base Excess POC ABG pCO2 ABG Hemoglobin ABG Oxyhemoglobin ABG Chloride ABG Glucose Oxyhemoglobin Sodium Potassium Chloride Carbon Dioxide BUN Creatinine Glucose POC Glucose 120 H 123 H Lactic Acid Calcium Phosphorus Magnesium AST ALT Lactate Dehydrogenase Total Bilirubin Direct Bilirubin CK-MB (CK-2) C-Reactive Protein NT-Pro-B Natriuret Pep Total Protein Albumin Arterial Blood Glucose Urine WBC (Auto) Urine Creatinine 12/03/19 12/03/19 12/03/19 06:03 06:14 11:46 WBC RBC Hgb Hct MCHC RDW MCV MCH Lymph % (Auto) [place] % (Auto) [place] # Eos # Lymph # (Auto) [place] # (Auto) Eos # (Auto) Seg Neutrophils % Seg Neuts % (Manual) Baso # (Auto) Lymphocytes % (Manual) Monocytes % (Manual) Eosinophils % (Manual) Basophils % (Manual) Seg Neutrophils # Seg Neutrophils # Man Lymphocytes # (Manual) Monocytes # (Manual) Eosinophils # (Manual) Nucleated RBC % Basophils # (Manual) PT INR APTT Heparin Anti-Xa Level ABG pH POC ABG pO2 ABG pO2 ABG HCO3 ABG O2 Saturation ABG Base Excess POC ABG pCO2 ABG Hemoglobin ABG Oxyhemoglobin ABG Chloride ABG Glucose Oxyhemoglobin Sodium Potassium Chloride Carbon Dioxide BUN Creatinine Glucose POC Glucose 142 H 130 H Lactic Acid Calcium Phosphorus Magnesium AST ALT Lactate Dehydrogenase Total Bilirubin Direct Bilirubin CK-MB (CK-2) C-Reactive Protein NT-Pro-B Natriuret Pep Total Protein Albumin Arterial Blood Glucose Urine WBC (Auto) 8.0 H Urine Creatinine 12/03/19 12/03/19 12/04/19 15:50 17:39 00:04 WBC RBC Hgb Hct MCHC RDW MCV MCH Lymph % (Auto) [place] % (Auto) [place] # Eos # Lymph # (Auto) [place] # (Auto) Eos # (Auto) Seg Neutrophils % Seg Neuts % (Manual) Baso # (Auto) Lymphocytes % (Manual) Monocytes % (Manual) Eosinophils % (Manual) Basophils % (Manual) Seg Neutrophils # Seg Neutrophils # Man Lymphocytes # (Manual) Monocytes # (Manual) Eosinophils # (Manual) Nucleated RBC % Basophils # (Manual) PT INR APTT Heparin Anti-Xa Level ABG pH POC ABG pO2 ABG pO2 ABG HCO3 ABG O2 Saturation ABG Base Excess POC ABG pCO2 ABG Hemoglobin ABG Oxyhemoglobin ABG Chloride ABG Glucose Oxyhemoglobin Sodium Potassium Chloride Carbon Dioxide BUN Creatinine Glucose POC Glucose 146 H 133 H Lactic Acid Calcium Phosphorus 2.40 L Magnesium AST ALT Lactate Dehydrogenase Total Bilirubin Direct Bilirubin CK-MB (CK-2) C-Reactive Protein NT-Pro-B Natriuret Pep Total Protein Albumin Arterial Blood Glucose Urine WBC (Auto) Urine Creatinine 12/04/19 12/04/19 12/04/19 03:58 03:58 05:22 WBC 12.5 H RBC Hgb 11.2 L Hct 35.2 L MCHC RDW 16.0 H MCV MCH Lymph % (Auto) [place] % (Auto) 9.6 H [place] # 1.2 H Eos # 0.5 H Lymph # (Auto) [place] # (Auto) Eos # (Auto) Seg Neutrophils % Seg Neuts % (Manual) Baso # (Auto) Lymphocytes % (Manual) Monocytes % (Manual) Eosinophils % (Manual) Basophils % (Manual) Seg Neutrophils # 8.6 H Seg Neutrophils # Man Lymphocytes # (Manual) Monocytes # (Manual) Eosinophils # (Manual) Nucleated RBC % Basophils # (Manual) PT INR APTT Heparin Anti-Xa Level ABG pH POC ABG pO2 ABG pO2 ABG HCO3 ABG O2 Saturation ABG Base Excess POC ABG pCO2 ABG Hemoglobin ABG Oxyhemoglobin ABG Chloride ABG Glucose Oxyhemoglobin Sodium 146 H Potassium Chloride 108.6 H Carbon Dioxide BUN 30 H Creatinine 0.7 L Glucose 121 H POC Glucose 132 H Lactic Acid Calcium Phosphorus Magnesium AST ALT Lactate Dehydrogenase Total Bilirubin Direct Bilirubin CK-MB (CK-2) C-Reactive Protein NT-Pro-B Natriuret Pep Total Protein Albumin Arterial Blood Glucose Urine WBC (Auto) Urine Creatinine 12/04/19 12/04/19 12/05/19 13:26 18:43 00:19 WBC RBC Hgb Hct MCHC RDW MCV MCH Lymph % (Auto) [place] % (Auto) [place] # Eos # Lymph # (Auto) [place] # (Auto) Eos # (Auto) Seg Neutrophils % Seg Neuts % (Manual) Baso # (Auto) Lymphocytes % (Manual) Monocytes % (Manual) Eosinophils % (Manual) Basophils % (Manual) Seg Neutrophils # Seg Neutrophils # Man Lymphocytes # (Manual) Monocytes # (Manual) Eosinophils # (Manual) Nucleated RBC % Basophils # (Manual) PT INR APTT Heparin Anti-Xa Level ABG pH POC ABG pO2 ABG pO2 ABG HCO3 ABG O2 Saturation ABG Base Excess POC ABG pCO2 ABG Hemoglobin ABG Oxyhemoglobin ABG Chloride ABG Glucose Oxyhemoglobin Sodium Potassium Chloride Carbon Dioxide BUN Creatinine Glucose POC Glucose 185 H 156 H 150 H Lactic Acid Calcium Phosphorus Magnesium AST ALT Lactate Dehydrogenase Total Bilirubin Direct Bilirubin CK-MB (CK-2) C-Reactive Protein NT-Pro-B Natriuret Pep Total Protein Albumin Arterial Blood Glucose Urine WBC (Auto) Urine Creatinine 12/05/19 12/05/19 12/05/19 03:37 03:37 05:14 WBC 16.3 H RBC Hgb 11.4 L Hct MCHC RDW 15.6 H MCV MCH Lymph % (Auto) 9.9 L [place] % (Auto) 9.7 H [place] # 1.6 H Eos # Lymph # (Auto) [place] # (Auto) Eos # (Auto) Seg Neutrophils % 78.0 H Seg Neuts % (Manual) Baso # (Auto) Lymphocytes % (Manual) Monocytes % (Manual) Eosinophils % (Manual) Basophils % (Manual) Seg Neutrophils # 12.7 H Seg Neutrophils # Man Lymphocytes # (Manual) Monocytes # (Manual) Eosinophils # (Manual) Nucleated RBC % Basophils # (Manual) PT INR APTT Heparin Anti-Xa Level ABG pH POC ABG pO2 ABG pO2 ABG HCO3 ABG O2 Saturation ABG Base Excess POC ABG pCO2 ABG Hemoglobin ABG Oxyhemoglobin ABG Chloride ABG Glucose Oxyhemoglobin Sodium 146 H Potassium Chloride 107.2 H Carbon Dioxide BUN 27 H Creatinine 0.7 L Glucose 171 H POC Glucose 168 H Lactic Acid Calcium Phosphorus Magnesium AST ALT Lactate Dehydrogenase Total Bilirubin Direct Bilirubin CK-MB (CK-2) C-Reactive Protein NT-Pro-B Natriuret Pep Total Protein Albumin Arterial Blood Glucose Urine WBC (Auto) Urine Creatinine 12/05/19 12/05/19 12/05/19 12:31 18:10 23:58 WBC RBC Hgb Hct MCHC RDW MCV MCH Lymph % (Auto) [place] % (Auto) [place] # Eos # Lymph # (Auto) [place] # (Auto) Eos # (Auto) Seg Neutrophils % Seg Neuts % (Manual) Baso # (Auto) Lymphocytes % (Manual) Monocytes % (Manual) Eosinophils % (Manual) Basophils % (Manual) Seg Neutrophils # Seg Neutrophils # Man Lymphocytes # (Manual) Monocytes # (Manual) Eosinophils # (Manual) Nucleated RBC % Basophils # (Manual) PT INR APTT Heparin Anti-Xa Level ABG pH POC ABG pO2 ABG pO2 ABG HCO3 ABG O2 Saturation ABG Base Excess POC ABG pCO2 ABG Hemoglobin ABG Oxyhemoglobin ABG Chloride ABG Glucose Oxyhemoglobin Sodium Potassium Chloride Carbon Dioxide BUN Creatinine Glucose POC Glucose 159 H 198 H 115 H Lactic Acid Calcium Phosphorus Magnesium AST ALT Lactate Dehydrogenase Total Bilirubin Direct Bilirubin CK-MB (CK-2) C-Reactive Protein NT-Pro-B Natriuret Pep Total Protein Albumin Arterial Blood Glucose Urine WBC (Auto) Urine Creatinine 12/06/19 12/06/19 12/06/19 05:24 05:24 05:25 WBC 14.9 H RBC Hgb 10.8 L Hct 34.0 L MCHC RDW 15.6 H MCV MCH Lymph % (Auto) 10.7 L [place] % (Auto) 8.3 H [place] # 1.2 H Eos # Lymph # (Auto) [place] # (Auto) Eos # (Auto) Seg Neutrophils % 78.7 H Seg Neuts % (Manual) Baso # (Auto) Lymphocytes % (Manual) Monocytes % (Manual) Eosinophils % (Manual) Basophils % (Manual) Seg Neutrophils # 11.7 H Seg Neutrophils # Man Lymphocytes # (Manual) Monocytes # (Manual) Eosinophils # (Manual) Nucleated RBC % Basophils # (Manual) PT INR APTT Heparin Anti-Xa Level ABG pH POC ABG pO2 ABG pO2 ABG HCO3 ABG O2 Saturation ABG Base Excess POC ABG pCO2 ABG Hemoglobin ABG Oxyhemoglobin ABG Chloride ABG Glucose Oxyhemoglobin Sodium 148 H Potassium 5.1 H Chloride 107.6 H Carbon Dioxide BUN 27 H Creatinine 0.7 L Glucose 155 H POC Glucose 157 H Lactic Acid Calcium Phosphorus Magnesium AST ALT Lactate Dehydrogenase Total Bilirubin Direct Bilirubin CK-MB (CK-2) C-Reactive Protein NT-Pro-B Natriuret Pep Total Protein Albumin Arterial Blood Glucose Urine WBC (Auto) Urine Creatinine 12/07/19 12/07/19 12/07/19 00:13 05:34 11:33 WBC RBC Hgb Hct MCHC RDW MCV MCH Lymph % (Auto) [place] % (Auto) [place] # Eos # Lymph # (Auto) [place] # (Auto) Eos # (Auto) Seg Neutrophils % Seg Neuts % (Manual) Baso # (Auto) Lymphocytes % (Manual) Monocytes % (Manual) Eosinophils % (Manual) Basophils % (Manual) Seg Neutrophils # Seg Neutrophils # Man Lymphocytes # (Manual) Monocytes # (Manual) Eosinophils # (Manual) Nucleated RBC % Basophils # (Manual) PT INR APTT Heparin Anti-Xa Level ABG pH POC ABG pO2 ABG pO2 ABG HCO3 ABG O2 Saturation ABG Base Excess POC ABG pCO2 ABG Hemoglobin ABG Oxyhemoglobin ABG Chloride ABG Glucose Oxyhemoglobin Sodium Potassium Chloride Carbon Dioxide BUN Creatinine Glucose POC Glucose 142 H 111 H 169 H Lactic Acid Calcium Phosphorus Magnesium AST ALT Lactate Dehydrogenase Total Bilirubin Direct Bilirubin CK-MB (CK-2) C-Reactive Protein NT-Pro-B Natriuret Pep Total Protein Albumin Arterial Blood Glucose Urine WBC (Auto) Urine Creatinine 12/07/19 12/07/19 12/07/19 12:41 13:25 18:19 WBC 12.4 H RBC 3.53 L Hgb 10.2 L Hct 32.1 L MCHC RDW 15.3 H MCV MCH Lymph % (Auto) 10.6 L [place] % (Auto) 7.8 H [place] # 1.0 H Eos # Lymph # (Auto) [place] # (Auto) Eos # (Auto) Seg Neutrophils % 77.6 H Seg Neuts % (Manual) Baso # (Auto) Lymphocytes % (Manual) Monocytes % (Manual) Eosinophils % (Manual) Basophils % (Manual) Seg Neutrophils # 9.6 H Seg Neutrophils # Man Lymphocytes # (Manual) Monocytes # (Manual) Eosinophils # (Manual) Nucleated RBC % Basophils # (Manual) PT INR APTT Heparin Anti-Xa Level ABG pH POC ABG pO2 ABG pO2 ABG HCO3 ABG O2 Saturation ABG Base Excess POC ABG pCO2 ABG Hemoglobin ABG Oxyhemoglobin ABG Chloride ABG Glucose Oxyhemoglobin Sodium 149 H Potassium Chloride 108.4 H Carbon Dioxide BUN 26 H Creatinine 0.6 L Glucose 149 H POC Glucose 164 H Lactic Acid Calcium Phosphorus Magnesium 2.60 H AST 121 H ALT 145 H Lactate Dehydrogenase Total Bilirubin Direct Bilirubin CK-MB (CK-2) C-Reactive Protein NT-Pro-B Natriuret Pep Total Protein Albumin 2.6 L Arterial Blood Glucose Urine WBC (Auto) Urine Creatinine 12/07/19 12/08/19 12/08/19 22:25 00:02 03:55 WBC 13.3 H RBC 3.40 L Hgb 9.7 L Hct 30.8 L MCHC 31 L RDW 15.5 H MCV MCH Lymph % (Auto) [place] % (Auto) 8.1 H [place] # 1.1 H Eos # Lymph # (Auto) [place] # (Auto) Eos # (Auto) Seg Neutrophils % 73.0 H Seg Neuts % (Manual) Baso # (Auto) Lymphocytes % (Manual) Monocytes % (Manual) Eosinophils % (Manual) Basophils % (Manual) Seg Neutrophils # 9.7 H Seg Neutrophils # Man Lymphocytes # (Manual) Monocytes # (Manual) Eosinophils # (Manual) Nucleated RBC % Basophils # (Manual) PT INR APTT Heparin Anti-Xa Level 0.12 L ABG pH POC ABG pO2 ABG pO2 ABG HCO3 ABG O2 Saturation ABG Base Excess POC ABG pCO2 ABG Hemoglobin ABG Oxyhemoglobin ABG Chloride ABG Glucose Oxyhemoglobin Sodium Potassium Chloride Carbon Dioxide BUN Creatinine Glucose POC Glucose 151 H Lactic Acid Calcium Phosphorus Magnesium AST ALT Lactate Dehydrogenase Total Bilirubin Direct Bilirubin CK-MB (CK-2) C-Reactive Protein NT-Pro-B Natriuret Pep Total Protein Albumin Arterial Blood Glucose Urine WBC (Auto) Urine Creatinine 12/08/19 12/08/19 12/08/19 03:55 05:21 06:01 WBC RBC Hgb Hct MCHC RDW MCV MCH Lymph % (Auto) [place] % (Auto) [place] # Eos # Lymph # (Auto) [place] # (Auto) Eos # (Auto) Seg Neutrophils % Seg Neuts % (Manual) Baso # (Auto) Lymphocytes % (Manual) Monocytes % (Manual) Eosinophils % (Manual) Basophils % (Manual) Seg Neutrophils # Seg Neutrophils # Man Lymphocytes # (Manual) Monocytes # (Manual) Eosinophils # (Manual) Nucleated RBC % Basophils # (Manual) PT INR APTT Heparin Anti-Xa Level 0.20 L ABG pH POC ABG pO2 ABG pO2 ABG HCO3 ABG O2 Saturation ABG Base Excess POC ABG pCO2 ABG Hemoglobin ABG Oxyhemoglobin ABG Chloride ABG Glucose Oxyhemoglobin Sodium 149 H Potassium Chloride 108.0 H Carbon Dioxide BUN 28 H Creatinine 0.6 L Glucose 144 H POC Glucose 143 H Lactic Acid Calcium Phosphorus Magnesium AST 98 H ALT 145 H Lactate Dehydrogenase Total Bilirubin Direct Bilirubin CK-MB (CK-2) C-Reactive Protein NT-Pro-B Natriuret Pep Total Protein 6.0 L Albumin 2.4 L Arterial Blood Glucose Urine WBC (Auto) Urine Creatinine 12/08/19 12/08/19 12/08/19 12:08 18:11 23:53 WBC RBC Hgb Hct MCHC RDW MCV MCH Lymph % (Auto) [place] % (Auto) [place] # Eos # Lymph # (Auto) [place] # (Auto) Eos # (Auto) Seg Neutrophils % Seg Neuts % (Manual) Baso # (Auto) Lymphocytes % (Manual) Monocytes % (Manual) Eosinophils % (Manual) Basophils % (Manual) Seg Neutrophils # Seg Neutrophils # Man Lymphocytes # (Manual) Monocytes # (Manual) Eosinophils # (Manual) Nucleated RBC % Basophils # (Manual) PT INR APTT Heparin Anti-Xa Level ABG pH POC ABG pO2 ABG pO2 ABG HCO3 ABG O2 Saturation ABG Base Excess POC ABG pCO2 ABG Hemoglobin ABG Oxyhemoglobin ABG Chloride ABG Glucose Oxyhemoglobin Sodium Potassium Chloride Carbon Dioxide BUN Creatinine Glucose POC Glucose 172 H 122 H 162 H Lactic Acid Calcium Phosphorus Magnesium AST ALT Lactate Dehydrogenase Total Bilirubin Direct Bilirubin CK-MB (CK-2) C-Reactive Protein NT-Pro-B Natriuret Pep Total Protein Albumin Arterial Blood Glucose Urine WBC (Auto) Urine Creatinine 12/09/19 12/09/19 12/09/19 04:03 04:03 05:53 WBC RBC Hgb 9.1 L Hct 28.9 L MCHC RDW MCV MCH Lymph % (Auto) [place] % (Auto) [place] # Eos # Lymph # (Auto) [place] # (Auto) Eos # (Auto) Seg Neutrophils % Seg Neuts % (Manual) Baso # (Auto) Lymphocytes % (Manual) Monocytes % (Manual) Eosinophils % (Manual) Basophils % (Manual) Seg Neutrophils # Seg Neutrophils # Man Lymphocytes # (Manual) Monocytes # (Manual) Eosinophils # (Manual) Nucleated RBC % Basophils # (Manual) PT INR APTT Heparin Anti-Xa Level 0.15 L ABG pH POC ABG pO2 ABG pO2 ABG HCO3 ABG O2 Saturation ABG Base Excess POC ABG pCO2 ABG Hemoglobin ABG Oxyhemoglobin ABG Chloride ABG Glucose Oxyhemoglobin Sodium Potassium Chloride Carbon Dioxide BUN Creatinine Glucose POC Glucose 124 H Lactic Acid Calcium Phosphorus Magnesium AST ALT Lactate Dehydrogenase Total Bilirubin Direct Bilirubin CK-MB (CK-2) C-Reactive Protein NT-Pro-B Natriuret Pep Total Protein Albumin Arterial Blood Glucose Urine WBC (Auto) Urine Creatinine 12/09/19 12/09/19 12/10/19 09:43 12:41 00:13 WBC RBC Hgb Hct MCHC RDW MCV MCH Lymph % (Auto) [place] % (Auto) [place] # Eos # Lymph # (Auto) [place] # (Auto) Eos # (Auto) Seg Neutrophils % Seg Neuts % (Manual) Baso # (Auto) Lymphocytes % (Manual) Monocytes % (Manual) Eosinophils % (Manual) Basophils % (Manual) Seg Neutrophils # Seg Neutrophils # Man Lymphocytes # (Manual) Monocytes # (Manual) Eosinophils # (Manual) Nucleated RBC % Basophils # (Manual) PT INR APTT Heparin Anti-Xa Level ABG pH POC ABG pO2 ABG pO2 ABG HCO3 ABG O2 Saturation ABG Base Excess POC ABG pCO2 ABG Hemoglobin ABG Oxyhemoglobin ABG Chloride ABG Glucose Oxyhemoglobin Sodium Potassium Chloride Carbon Dioxide BUN 25 H Creatinine 0.6 L Glucose 131 H POC Glucose 109 H 120 H Lactic Acid Calcium Phosphorus Magnesium AST ALT Lactate Dehydrogenase Total Bilirubin Direct Bilirubin CK-MB (CK-2) C-Reactive Protein NT-Pro-B Natriuret Pep Total Protein Albumin Arterial Blood Glucose Urine WBC (Auto) Urine Creatinine 12/10/19 12/10/19 12/10/19 04:14 04:14 12:00 WBC 13.3 H RBC 3.34 L Hgb 9.6 L Hct 30.4 L MCHC RDW 15.4 H MCV MCH Lymph % (Auto) [place] % (Auto) [place] # Eos # Lymph # (Auto) [place] # (Auto) Eos # (Auto) Seg Neutrophils % Seg Neuts % (Manual) 75.0 H Baso # (Auto) Lymphocytes % (Manual) 13.0 L Monocytes % (Manual) 8.0 H Eosinophils % (Manual) Basophils % (Manual) 2.0 H Seg Neutrophils # Seg Neutrophils # Man 10.0 H Lymphocytes # (Manual) Monocytes # (Manual) 1.1 H Eosinophils # (Manual) Nucleated RBC % Basophils # (Manual) 0.3 H PT INR APTT Heparin Anti-Xa Level ABG pH POC ABG pO2 ABG pO2 ABG HCO3 ABG O2 Saturation ABG Base Excess POC ABG pCO2 ABG Hemoglobin ABG Oxyhemoglobin ABG Chloride ABG Glucose Oxyhemoglobin Sodium 147 H Potassium Chloride 108.3 H Carbon Dioxide BUN 21 H Creatinine 0.6 L Glucose 104 H POC Glucose 133 H Lactic Acid Calcium Phosphorus Magnesium AST ALT Lactate Dehydrogenase Total Bilirubin Direct Bilirubin CK-MB (CK-2) C-Reactive Protein NT-Pro-B Natriuret Pep Total Protein Albumin Arterial Blood Glucose Urine WBC (Auto) Urine Creatinine 12/10/19 12/10/19 12/11/19 18:44 21:20 00:08 WBC 14.9 H RBC 3.36 L Hgb 9.6 L Hct 30.5 L MCHC RDW 15.4 H MCV MCH Lymph % (Auto) [place] % (Auto) [place] # Eos # Lymph # (Auto) [place] # (Auto) Eos # (Auto) Seg Neutrophils % Seg Neuts % (Manual) Baso # (Auto) Lymphocytes % (Manual) Monocytes % (Manual) Eosinophils % (Manual) Basophils % (Manual) Seg Neutrophils # Seg Neutrophils # Man Lymphocytes # (Manual) Monocytes # (Manual) Eosinophils # (Manual) Nucleated RBC % Basophils # (Manual) PT INR APTT Heparin Anti-Xa Level ABG pH POC ABG pO2 ABG pO2 ABG HCO3 ABG O2 Saturation ABG Base Excess POC ABG pCO2 ABG Hemoglobin ABG Oxyhemoglobin ABG Chloride ABG Glucose Oxyhemoglobin Sodium Potassium Chloride Carbon Dioxide BUN Creatinine Glucose POC Glucose 119 H 134 H Lactic Acid Calcium Phosphorus Magnesium AST ALT Lactate Dehydrogenase Total Bilirubin Direct Bilirubin CK-MB (CK-2) C-Reactive Protein NT-Pro-B Natriuret Pep Total Protein Albumin Arterial Blood Glucose Urine WBC (Auto) Urine Creatinine 12/11/19 12/11/19 12/11/19 03:54 07:28 08:36 WBC 11.9 H RBC 3.25 L Hgb 9.6 L Hct 29.2 L MCHC RDW 15.7 H MCV MCH Lymph % (Auto) [place] % (Auto) [place] # Eos # Lymph # (Auto) [place] # (Auto) Eos # (Auto) Seg Neutrophils % Seg Neuts % (Manual) Baso # (Auto) Lymphocytes % (Manual) Monocytes % (Manual) Eosinophils % (Manual) Basophils % (Manual) Seg Neutrophils # Seg Neutrophils # Man Lymphocytes # (Manual) Monocytes # (Manual) Eosinophils # (Manual) Nucleated RBC % Basophils # (Manual) PT INR APTT Heparin Anti-Xa Level 0.10 L 0.16 L ABG pH POC ABG pO2 ABG pO2 ABG HCO3 ABG O2 Saturation ABG Base Excess POC ABG pCO2 ABG Hemoglobin ABG Oxyhemoglobin ABG Chloride ABG Glucose Oxyhemoglobin Sodium Potassium Chloride Carbon Dioxide BUN Creatinine Glucose POC Glucose Lactic Acid Calcium Phosphorus Magnesium AST ALT Lactate Dehydrogenase Total Bilirubin Direct Bilirubin CK-MB (CK-2) C-Reactive Protein NT-Pro-B Natriuret Pep Total Protein Albumin Arterial Blood Glucose Urine WBC (Auto) Urine Creatinine 12/11/19 12/11/19 12/11/19 08:36 11:45 17:15 WBC RBC Hgb Hct MCHC RDW MCV MCH Lymph % (Auto) [place] % (Auto) [place] # Eos # Lymph # (Auto) [place] # (Auto) Eos # (Auto) Seg Neutrophils % Seg Neuts % (Manual) Baso # (Auto) Lymphocytes % (Manual) Monocytes % (Manual) Eosinophils % (Manual) Basophils % (Manual) Seg Neutrophils # Seg Neutrophils # Man Lymphocytes # (Manual) Monocytes # (Manual) Eosinophils # (Manual) Nucleated RBC % Basophils # (Manual) PT INR APTT Heparin Anti-Xa Level ABG pH POC ABG pO2 ABG pO2 ABG HCO3 ABG O2 Saturation ABG Base Excess POC ABG pCO2 ABG Hemoglobin ABG Oxyhemoglobin ABG Chloride ABG Glucose Oxyhemoglobin Sodium Potassium Chloride Carbon Dioxide BUN Creatinine 0.5 L Glucose 128 H POC Glucose 136 H 109 H Lactic Acid Calcium Phosphorus Magnesium AST ALT Lactate Dehydrogenase Total Bilirubin Direct Bilirubin CK-MB (CK-2) C-Reactive Protein NT-Pro-B Natriuret Pep Total Protein Albumin Arterial Blood Glucose Urine WBC (Auto) Urine Creatinine 12/12/19 12/12/19 12/12/19 00:03 05:53 05:53 WBC RBC Hgb 8.8 L Hct 27.6 L MCHC RDW MCV MCH Lymph % (Auto) [place] % (Auto) [place] # Eos # Lymph # (Auto) [place] # (Auto) Eos # (Auto) Seg Neutrophils % Seg Neuts % (Manual) Baso # (Auto) Lymphocytes % (Manual) Monocytes % (Manual) Eosinophils % (Manual) Basophils % (Manual) Seg Neutrophils # Seg Neutrophils # Man Lymphocytes # (Manual) Monocytes # (Manual) Eosinophils # (Manual) Nucleated RBC % Basophils # (Manual) PT INR APTT Heparin Anti-Xa Level 0.22 L ABG pH POC ABG pO2 ABG pO2 ABG HCO3 ABG O2 Saturation ABG Base Excess POC ABG pCO2 ABG Hemoglobin ABG Oxyhemoglobin ABG Chloride ABG Glucose Oxyhemoglobin Sodium Potassium Chloride Carbon Dioxide BUN Creatinine Glucose POC Glucose 116 H Lactic Acid Calcium Phosphorus Magnesium AST ALT Lactate Dehydrogenase Total Bilirubin Direct Bilirubin CK-MB (CK-2) C-Reactive Protein NT-Pro-B Natriuret Pep Total Protein Albumin Arterial Blood Glucose Urine WBC (Auto) Urine Creatinine 12/12/19 12/12/19 12/12/19 09:38 12:18 17:44 WBC RBC Hgb Hct MCHC RDW MCV MCH Lymph % (Auto) [place] % (Auto) [place] # Eos # Lymph # (Auto) [place] # (Auto) Eos # (Auto) Seg Neutrophils % Seg Neuts % (Manual) Baso # (Auto) Lymphocytes % (Manual) Monocytes % (Manual) Eosinophils % (Manual) Basophils % (Manual) Seg Neutrophils # Seg Neutrophils # Man Lymphocytes # (Manual) Monocytes # (Manual) Eosinophils # (Manual) Nucleated RBC % Basophils # (Manual) PT INR APTT Heparin Anti-Xa Level ABG pH POC ABG pO2 ABG pO2 ABG HCO3 ABG O2 Saturation ABG Base Excess POC ABG pCO2 ABG Hemoglobin ABG Oxyhemoglobin ABG Chloride ABG Glucose Oxyhemoglobin Sodium Potassium Chloride Carbon Dioxide BUN Creatinine Glucose POC Glucose 115 H 146 H 146 H Lactic Acid Calcium Phosphorus Magnesium AST ALT Lactate Dehydrogenase Total Bilirubin Direct Bilirubin CK-MB (CK-2) C-Reactive Protein NT-Pro-B Natriuret Pep Total Protein Albumin Arterial Blood Glucose Urine WBC (Auto) Urine Creatinine 12/12/19 12/13/19 12/13/19 23:33 05:32 05:32 WBC 13.1 H RBC 3.27 L Hgb 9.5 L Hct 29.3 L MCHC RDW 15.6 H MCV MCH Lymph % (Auto) [place] % (Auto) [place] # Eos # Lymph # (Auto) [place] # (Auto) Eos # (Auto) Seg Neutrophils % Seg Neuts % (Manual) 74.0 H Baso # (Auto) Lymphocytes % (Manual) 8.0 L Monocytes % (Manual) 9.0 H Eosinophils % (Manual) 5.0 H Basophils % (Manual) Seg Neutrophils # Seg Neutrophils # Man 9.7 H Lymphocytes # (Manual) 1.0 L Monocytes # (Manual) 1.2 H Eosinophils # (Manual) 0.7 H Nucleated RBC % Basophils # (Manual) PT INR APTT Heparin Anti-Xa Level 0.20 L ABG pH POC ABG pO2 ABG pO2 ABG HCO3 ABG O2 Saturation ABG Base Excess POC ABG pCO2 ABG Hemoglobin ABG Oxyhemoglobin ABG Chloride ABG Glucose Oxyhemoglobin Sodium Potassium Chloride Carbon Dioxide BUN Creatinine Glucose POC Glucose 126 H Lactic Acid Calcium Phosphorus Magnesium AST ALT Lactate Dehydrogenase Total Bilirubin Direct Bilirubin CK-MB (CK-2) C-Reactive Protein NT-Pro-B Natriuret Pep Total Protein Albumin Arterial Blood Glucose Urine WBC (Auto) Urine Creatinine 12/13/19 12/13/19 12/13/19 05:32 05:46 11:57 WBC RBC Hgb Hct MCHC RDW MCV MCH Lymph % (Auto) [place] % (Auto) [place] # Eos # Lymph # (Auto) [place] # (Auto) Eos # (Auto) Seg Neutrophils % Seg Neuts % (Manual) Baso # (Auto) Lymphocytes % (Manual) Monocytes % (Manual) Eosinophils % (Manual) Basophils % (Manual) Seg Neutrophils # Seg Neutrophils # Man Lymphocytes # (Manual) Monocytes # (Manual) Eosinophils # (Manual) Nucleated RBC % Basophils # (Manual) PT INR APTT Heparin Anti-Xa Level ABG pH POC ABG pO2 ABG pO2 ABG HCO3 ABG O2 Saturation ABG Base Excess POC ABG pCO2 ABG Hemoglobin ABG Oxyhemoglobin ABG Chloride ABG Glucose Oxyhemoglobin Sodium Potassium Chloride Carbon Dioxide 31 H BUN Creatinine 0.6 L Glucose 114 H POC Glucose 118 H 133 H Lactic Acid Calcium Phosphorus Magnesium AST ALT Lactate Dehydrogenase Total Bilirubin Direct Bilirubin CK-MB (CK-2) C-Reactive Protein NT-Pro-B Natriuret Pep Total Protein Albumin Arterial Blood Glucose Urine WBC (Auto) Urine Creatinine 12/13/19 12/13/19 12/14/19 17:44 23:46 05:32 WBC RBC Hgb Hct MCHC RDW MCV MCH Lymph % (Auto) [place] % (Auto) [place] # Eos # Lymph # (Auto) [place] # (Auto) Eos # (Auto) Seg Neutrophils % Seg Neuts % (Manual) Baso # (Auto) Lymphocytes % (Manual) Monocytes % (Manual) Eosinophils % (Manual) Basophils % (Manual) Seg Neutrophils # Seg Neutrophils # Man Lymphocytes # (Manual) Monocytes # (Manual) Eosinophils # (Manual) Nucleated RBC % Basophils # (Manual) PT INR APTT Heparin Anti-Xa Level ABG pH POC ABG pO2 ABG pO2 ABG HCO3 ABG O2 Saturation ABG Base Excess POC ABG pCO2 ABG Hemoglobin ABG Oxyhemoglobin ABG Chloride ABG Glucose Oxyhemoglobin Sodium Potassium Chloride Carbon Dioxide BUN Creatinine Glucose POC Glucose 161 H 126 H 139 H Lactic Acid Calcium Phosphorus Magnesium AST ALT Lactate Dehydrogenase Total Bilirubin Direct Bilirubin CK-MB (CK-2) C-Reactive Protein NT-Pro-B Natriuret Pep Total Protein Albumin Arterial Blood Glucose Urine WBC (Auto) Urine Creatinine 12/14/19 12/14/19 12/14/19 06:03 06:03 09:37 WBC RBC Hgb 9.6 L Hct 30.4 L MCHC RDW MCV MCH Lymph % (Auto) [place] % (Auto) [place] # Eos # Lymph # (Auto) [place] # (Auto) Eos # (Auto) Seg Neutrophils % Seg Neuts % (Manual) Baso # (Auto) Lymphocytes % (Manual) Monocytes % (Manual) Eosinophils % (Manual) Basophils % (Manual) Seg Neutrophils # Seg Neutrophils # Man Lymphocytes # (Manual) Monocytes # (Manual) Eosinophils # (Manual) Nucleated RBC % Basophils # (Manual) PT INR APTT Heparin Anti-Xa Level 0.24 L ABG pH POC ABG pO2 ABG pO2 ABG HCO3 ABG O2 Saturation ABG Base Excess POC ABG pCO2 ABG Hemoglobin ABG Oxyhemoglobin ABG Chloride ABG Glucose Oxyhemoglobin Sodium Potassium Chloride Carbon Dioxide BUN Creatinine 0.6 L Glucose 162 H POC Glucose Lactic Acid Calcium Phosphorus Magnesium AST 71 H ALT 118 H Lactate Dehydrogenase Total Bilirubin Direct Bilirubin CK-MB (CK-2) C-Reactive Protein NT-Pro-B Natriuret Pep Total Protein 6.2 L Albumin 2.3 L Arterial Blood Glucose Urine WBC (Auto) Urine Creatinine 12/14/19 12/14/19 12/15/19 12:06 18:18 00:19 WBC RBC Hgb Hct MCHC RDW MCV MCH Lymph % (Auto) Liberty % (Auto) Liberty # Eos # Lymph # (Auto) [place] # (Auto) Eos # (Auto) Seg Neutrophils % Seg Neuts % (Manual) Baso # (Auto) Lymphocytes % (Manual) Monocytes % (Manual) Eosinophils % (Manual) Basophils % (Manual) Seg Neutrophils # Seg Neutrophils # Man Lymphocytes # (Manual) Monocytes # (Manual) Eosinophils # (Manual) Nucleated RBC % Basophils # (Manual) PT INR APTT Heparin Anti-Xa Level ABG pH POC ABG pO2 ABG pO2 ABG HCO3 ABG O2 Saturation ABG Base Excess POC ABG pCO2 ABG Hemoglobin ABG Oxyhemoglobin ABG Chloride ABG Glucose Oxyhemoglobin Sodium Potassium Chloride Carbon Dioxide BUN Creatinine Glucose POC Glucose 147 H 166 H 123 H Lactic Acid Calcium Phosphorus Magnesium AST ALT Lactate Dehydrogenase Total Bilirubin Direct Bilirubin CK-MB (CK-2) C-Reactive Protein NT-Pro-B Natriuret Pep Total Protein Albumin Arterial Blood Glucose Urine WBC (Auto) Urine Creatinine 12/15/19 12/15/19 12/15/19 05:28 05:29 05:29 WBC 14.9 H RBC 3.19 L Hgb 9.1 L Hct 28.7 L MCHC RDW 16.0 H MCV MCH Lymph % (Auto) [place] % (Auto) [place] # Eos # Lymph # (Auto) [place] # (Auto) Eos # (Auto) Seg Neutrophils % Seg Neuts % (Manual) Baso # (Auto) Lymphocytes % (Manual) Monocytes % (Manual) Eosinophils % (Manual) Basophils % (Manual) Seg Neutrophils # Seg Neutrophils # Man Lymphocytes # (Manual) Monocytes # (Manual) Eosinophils # (Manual) Nucleated RBC % Basophils # (Manual) PT INR APTT Heparin Anti-Xa Level 0.19 L ABG pH POC ABG pO2 ABG pO2 ABG HCO3 ABG O2 Saturation ABG Base Excess POC ABG pCO2 ABG Hemoglobin ABG Oxyhemoglobin ABG Chloride ABG Glucose Oxyhemoglobin Sodium Potassium Chloride Carbon Dioxide BUN Creatinine 0.6 L Glucose 110 H POC Glucose Lactic Acid Calcium Phosphorus Magnesium AST ALT Lactate Dehydrogenase Total Bilirubin Direct Bilirubin CK-MB (CK-2) C-Reactive Protein NT-Pro-B Natriuret Pep Total Protein Albumin Arterial Blood Glucose Urine WBC (Auto) Urine Creatinine 12/15/19 12/15/19 12/15/19 05:53 11:50 17:26 WBC RBC Hgb Hct MCHC RDW MCV MCH Lymph % (Auto) [place] % (Auto) [place] # Eos # Lymph # (Auto) [place] # (Auto) Eos # (Auto) Seg Neutrophils % Seg Neuts % (Manual) Baso # (Auto) Lymphocytes % (Manual) Monocytes % (Manual) Eosinophils % (Manual) Basophils % (Manual) Seg Neutrophils # Seg Neutrophils # Man Lymphocytes # (Manual) Monocytes # (Manual) Eosinophils # (Manual) Nucleated RBC % Basophils # (Manual) PT INR APTT Heparin Anti-Xa Level ABG pH POC ABG pO2 ABG pO2 ABG HCO3 ABG O2 Saturation ABG Base Excess POC ABG pCO2 ABG Hemoglobin ABG Oxyhemoglobin ABG Chloride ABG Glucose Oxyhemoglobin Sodium Potassium Chloride Carbon Dioxide BUN Creatinine Glucose POC Glucose 119 H 132 H 128 H Lactic Acid Calcium Phosphorus Magnesium AST ALT Lactate Dehydrogenase Total Bilirubin Direct Bilirubin CK-MB (CK-2) C-Reactive Protein NT-Pro-B Natriuret Pep Total Protein Albumin Arterial Blood Glucose Urine WBC (Auto) Urine Creatinine 12/15/19 12/16/19 12/16/19 23:11 05:30 05:46 WBC RBC Hgb 8.8 L Hct 27.9 L MCHC RDW MCV MCH Lymph % (Auto) [place] % (Auto) [place] # Eos # Lymph # (Auto) [place] # (Auto) Eos # (Auto) Seg Neutrophils % Seg Neuts % (Manual) Baso # (Auto) Lymphocytes % (Manual) Monocytes % (Manual) Eosinophils % (Manual) Basophils % (Manual) Seg Neutrophils # Seg Neutrophils # Man Lymphocytes # (Manual) Monocytes # (Manual) Eosinophils # (Manual) Nucleated RBC % Basophils # (Manual) PT INR APTT Heparin Anti-Xa Level ABG pH POC ABG pO2 ABG pO2 ABG HCO3 ABG O2 Saturation ABG Base Excess POC ABG pCO2 ABG Hemoglobin ABG Oxyhemoglobin ABG Chloride ABG Glucose Oxyhemoglobin Sodium Potassium Chloride Carbon Dioxide BUN Creatinine Glucose POC Glucose 150 H 134 H Lactic Acid Calcium Phosphorus Magnesium AST ALT Lactate Dehydrogenase Total Bilirubin Direct Bilirubin CK-MB (CK-2) C-Reactive Protein NT-Pro-B Natriuret Pep Total Protein Albumin Arterial Blood Glucose Urine WBC (Auto) Urine Creatinine 12/16/19 12/16/19 12/16/19 05:46 05:46 11:44 WBC RBC Hgb Hct MCHC RDW MCV MCH Lymph % (Auto) [place] % (Auto) [place] # Eos # Lymph # (Auto) [place] # (Auto) Eos # (Auto) Seg Neutrophils % Seg Neuts % (Manual) Baso # (Auto) Lymphocytes % (Manual) Monocytes % (Manual) Eosinophils % (Manual) Basophils % (Manual) Seg Neutrophils # Seg Neutrophils # Man Lymphocytes # (Manual) Monocytes # (Manual) Eosinophils # (Manual) Nucleated RBC % Basophils # (Manual) PT INR APTT Heparin Anti-Xa Level 0.20 L ABG pH POC ABG pO2 ABG pO2 ABG HCO3 ABG O2 Saturation ABG Base Excess POC ABG pCO2 ABG Hemoglobin ABG Oxyhemoglobin ABG Chloride ABG Glucose Oxyhemoglobin Sodium Potassium Chloride Carbon Dioxide 31 H BUN Creatinine 0.5 L Glucose 147 H POC Glucose 164 H Lactic Acid Calcium Phosphorus Magnesium AST ALT Lactate Dehydrogenase Total Bilirubin Direct Bilirubin CK-MB (CK-2) C-Reactive Protein NT-Pro-B Natriuret Pep Total Protein Albumin Arterial Blood Glucose Urine WBC (Auto) Urine Creatinine 12/16/19 12/16/19 12/17/19 17:17 23:49 05:30 WBC 13.9 H RBC 3.27 L Hgb 9.4 L Hct 29.2 L MCHC RDW 16.0 H MCV MCH Lymph % (Auto) [place] % (Auto) 8.8 H [place] # Eos # Lymph # (Auto) [place] # (Auto) 1.2 H Eos # (Auto) 0.5 H Seg Neutrophils % 70.5 H Seg Neuts % (Manual) Baso # (Auto) 0.2 H Lymphocytes % (Manual) Monocytes % (Manual) Eosinophils % (Manual) Basophils % (Manual) Seg Neutrophils # 9.8 H Seg Neutrophils # Man Lymphocytes # (Manual) Monocytes # (Manual) Eosinophils # (Manual) Nucleated RBC % Basophils # (Manual) PT INR APTT Heparin Anti-Xa Level ABG pH POC ABG pO2 ABG pO2 ABG HCO3 ABG O2 Saturation ABG Base Excess POC ABG pCO2 ABG Hemoglobin ABG Oxyhemoglobin ABG Chloride ABG Glucose Oxyhemoglobin Sodium Potassium Chloride Carbon Dioxide BUN Creatinine Glucose POC Glucose 162 H 144 H Lactic Acid Calcium Phosphorus Magnesium AST ALT Lactate Dehydrogenase Total Bilirubin Direct Bilirubin CK-MB (CK-2) C-Reactive Protein NT-Pro-B Natriuret Pep Total Protein Albumin Arterial Blood Glucose Urine WBC (Auto) Urine Creatinine 12/17/19 12/17/19 12/17/19 05:30 06:06 11:50 WBC RBC Hgb Hct MCHC RDW MCV MCH Lymph % (Auto) [place] % (Auto) [place] # Eos # Lymph # (Auto) [place] # (Auto) Eos # (Auto) Seg Neutrophils % Seg Neuts % (Manual) Baso # (Auto) Lymphocytes % (Manual) Monocytes % (Manual) Eosinophils % (Manual) Basophils % (Manual) Seg Neutrophils # Seg Neutrophils # Man Lymphocytes # (Manual) Monocytes # (Manual) Eosinophils # (Manual) Nucleated RBC % Basophils # (Manual) PT INR APTT Heparin Anti-Xa Level ABG pH POC ABG pO2 ABG pO2 ABG HCO3 ABG O2 Saturation ABG Base Excess POC ABG pCO2 ABG Hemoglobin ABG Oxyhemoglobin ABG Chloride ABG Glucose Oxyhemoglobin Sodium Potassium Chloride 97.4 L Carbon Dioxide 32 H BUN Creatinine 0.5 L Glucose 135 H POC Glucose 151 H 140 H Lactic Acid Calcium Phosphorus Magnesium AST ALT Lactate Dehydrogenase Total Bilirubin Direct Bilirubin CK-MB (CK-2) C-Reactive Protein NT-Pro-B Natriuret Pep Total Protein Albumin Arterial Blood Glucose Urine WBC (Auto) Urine Creatinine 12/17/19 12/17/19 12/18/19 17:50 23:46 05:17 WBC RBC Hgb 8.8 L Hct 28.0 L MCHC RDW MCV MCH Lymph % (Auto) [place] % (Auto) [place] # Eos # Lymph # (Auto) [place] # (Auto) Eos # (Auto) Seg Neutrophils % Seg Neuts % (Manual) Baso # (Auto) Lymphocytes % (Manual) Monocytes % (Manual) Eosinophils % (Manual) Basophils % (Manual) Seg Neutrophils # Seg Neutrophils # Man Lymphocytes # (Manual) Monocytes # (Manual) Eosinophils # (Manual) Nucleated RBC % Basophils # (Manual) PT INR APTT Heparin Anti-Xa Level ABG pH POC ABG pO2 ABG pO2 ABG HCO3 ABG O2 Saturation ABG Base Excess POC ABG pCO2 ABG Hemoglobin ABG Oxyhemoglobin ABG Chloride ABG Glucose Oxyhemoglobin Sodium Potassium Chloride Carbon Dioxide BUN Creatinine Glucose POC Glucose 158 H 150 H Lactic Acid Calcium Phosphorus Magnesium AST ALT Lactate Dehydrogenase Total Bilirubin Direct Bilirubin CK-MB (CK-2) C-Reactive Protein NT-Pro-B Natriuret Pep Total Protein Albumin Arterial Blood Glucose Urine WBC (Auto) Urine Creatinine 12/18/19 12/18/19 12/18/19 05:17 05:49 11:12 WBC RBC Hgb Hct MCHC RDW MCV MCH Lymph % (Auto) [place] % (Auto) [place] # Eos # Lymph # (Auto) [place] # (Auto) Eos # (Auto) Seg Neutrophils % Seg Neuts % (Manual) Baso # (Auto) Lymphocytes % (Manual) Monocytes % (Manual) Eosinophils % (Manual) Basophils % (Manual) Seg Neutrophils # Seg Neutrophils # Man Lymphocytes # (Manual) Monocytes # (Manual) Eosinophils # (Manual) Nucleated RBC % Basophils # (Manual) PT INR APTT Heparin Anti-Xa Level 0.16 L ABG pH POC ABG pO2 ABG pO2 ABG HCO3 ABG O2 Saturation ABG Base Excess POC ABG pCO2 ABG Hemoglobin ABG Oxyhemoglobin ABG Chloride ABG Glucose Oxyhemoglobin Sodium Potassium Chloride Carbon Dioxide BUN Creatinine Glucose POC Glucose 127 H 191 H Lactic Acid Calcium Phosphorus Magnesium AST ALT Lactate Dehydrogenase Total Bilirubin Direct Bilirubin CK-MB (CK-2) C-Reactive Protein NT-Pro-B Natriuret Pep Total Protein Albumin Arterial Blood Glucose Urine WBC (Auto) Urine Creatinine 12/18/19 12/18/19 12/19/19 17:03 20:16 00:08 WBC RBC Hgb Hct MCHC RDW MCV MCH Lymph % (Auto) [place] % (Auto) [place] # Eos # Lymph # (Auto) [place] # (Auto) Eos # (Auto) Seg Neutrophils % Seg Neuts % (Manual) Baso # (Auto) Lymphocytes % (Manual) Monocytes % (Manual) Eosinophils % (Manual) Basophils % (Manual) Seg Neutrophils # Seg Neutrophils # Man Lymphocytes # (Manual) Monocytes # (Manual) Eosinophils # (Manual) Nucleated RBC % Basophils # (Manual) PT INR APTT Heparin Anti-Xa Level ABG pH POC ABG pO2 ABG pO2 ABG HCO3 ABG O2 Saturation ABG Base Excess POC ABG pCO2 ABG Hemoglobin ABG Oxyhemoglobin ABG Chloride ABG Glucose Oxyhemoglobin Sodium Potassium Chloride Carbon Dioxide BUN Creatinine Glucose POC Glucose 133 H 128 H 129 H Lactic Acid Calcium Phosphorus Magnesium AST ALT Lactate Dehydrogenase Total Bilirubin Direct Bilirubin CK-MB (CK-2) C-Reactive Protein NT-Pro-B Natriuret Pep Total Protein Albumin Arterial Blood Glucose Urine WBC (Auto) Urine Creatinine 12/19/19 12/19/19 12/19/19 04:45 04:45 05:35 WBC RBC Hgb Hct MCHC RDW MCV MCH Lymph % (Auto) [place] % (Auto) [place] # Eos # Lymph # (Auto) [place] # (Auto) Eos # (Auto) Seg Neutrophils % Seg Neuts % (Manual) Baso # (Auto) Lymphocytes % (Manual) Monocytes % (Manual) Eosinophils % (Manual) Basophils % (Manual) Seg Neutrophils # Seg Neutrophils # Man Lymphocytes # (Manual) Monocytes # (Manual) Eosinophils # (Manual) Nucleated RBC % Basophils # (Manual) PT INR APTT Heparin Anti-Xa Level 0.17 L ABG pH POC ABG pO2 ABG pO2 ABG HCO3 ABG O2 Saturation ABG Base Excess POC ABG pCO2 ABG Hemoglobin ABG Oxyhemoglobin ABG Chloride ABG Glucose Oxyhemoglobin Sodium Potassium Chloride Carbon Dioxide BUN Creatinine Glucose POC Glucose 120 H Lactic Acid Calcium Phosphorus Magnesium AST ALT Lactate Dehydrogenase 228 H Total Bilirubin Direct Bilirubin CK-MB (CK-2) C-Reactive Protein NT-Pro-B Natriuret Pep Total Protein Albumin Arterial Blood Glucose Urine WBC (Auto) Urine Creatinine 12/19/19 12/19/19 12/19/19 09:20 11:32 11:32 WBC 14.6 H RBC 3.08 L Hgb 9.0 L Hct 26.8 L MCHC RDW 15.9 H MCV MCH Lymph % (Auto) [place] % (Auto) [place] # Eos # Lymph # (Auto) [place] # (Auto) Eos # (Auto) Seg Neutrophils % Seg Neuts % (Manual) 82.0 H Baso # (Auto) Lymphocytes % (Manual) 10.0 L Monocytes % (Manual) Eosinophils % (Manual) Basophils % (Manual) Seg Neutrophils # Seg Neutrophils # Man 12.0 H Lymphocytes # (Manual) Monocytes # (Manual) 0.9 H Eosinophils # (Manual) Nucleated RBC % 1.0 H Basophils # (Manual) PT INR APTT Heparin Anti-Xa Level ABG pH 7.451 H POC ABG pO2 ABG pO2 62.6 L ABG HCO3 33.2 H ABG O2 Saturation 93.8 L ABG Base Excess 8.3 H POC ABG pCO2 ABG Hemoglobin 8.3 L ABG Oxyhemoglobin ABG Chloride ABG Glucose Oxyhemoglobin 91.9 L Sodium Potassium Chloride 95.0 L Carbon Dioxide 33 H BUN 22 H Creatinine 0.6 L Glucose 150 H POC Glucose Lactic Acid Calcium Phosphorus Magnesium AST ALT Lactate Dehydrogenase Total Bilirubin Direct Bilirubin CK-MB (CK-2) C-Reactive Protein NT-Pro-B Natriuret Pep Total Protein 6.2 L Albumin 2.4 L Arterial Blood Glucose Urine WBC (Auto) Urine Creatinine 12/19/19 12/19/19 12/20/19 11:56 18:17 00:09 WBC RBC Hgb Hct MCHC RDW MCV MCH Lymph % (Auto) [place] % (Auto) [place] # Eos # Lymph # (Auto) [place] # (Auto) Eos # (Auto) Seg Neutrophils % Seg Neuts % (Manual) Baso # (Auto) Lymphocytes % (Manual) Monocytes % (Manual) Eosinophils % (Manual) Basophils % (Manual) Seg Neutrophils # Seg Neutrophils # Man Lymphocytes # (Manual) Monocytes # (Manual) Eosinophils # (Manual) Nucleated RBC % Basophils # (Manual) PT INR APTT Heparin Anti-Xa Level ABG pH POC ABG pO2 ABG pO2 ABG HCO3 ABG O2 Saturation ABG Base Excess POC ABG pCO2 ABG Hemoglobin ABG Oxyhemoglobin ABG Chloride ABG Glucose Oxyhemoglobin Sodium Potassium Chloride Carbon Dioxide BUN Creatinine Glucose POC Glucose 156 H 156 H 155 H Lactic Acid Calcium Phosphorus Magnesium AST ALT Lactate Dehydrogenase Total Bilirubin Direct Bilirubin CK-MB (CK-2) C-Reactive Protein NT-Pro-B Natriuret Pep Total Protein Albumin Arterial Blood Glucose Urine WBC (Auto) Urine Creatinine 12/20/19 12/20/19 12/20/19 05:26 06:02 18:17 WBC RBC Hgb Hct MCHC RDW MCV MCH Lymph % (Auto) [place] % (Auto) [place] # Eos # Lymph # (Auto) [place] # (Auto) Eos # (Auto) Seg Neutrophils % Seg Neuts % (Manual) Baso # (Auto) Lymphocytes % (Manual) Monocytes % (Manual) Eosinophils % (Manual) Basophils % (Manual) Seg Neutrophils # Seg Neutrophils # Man Lymphocytes # (Manual) Monocytes # (Manual) Eosinophils # (Manual) Nucleated RBC % Basophils # (Manual) PT INR APTT Heparin Anti-Xa Level 0.19 L ABG pH POC ABG pO2 ABG pO2 ABG HCO3 ABG O2 Saturation ABG Base Excess POC ABG pCO2 ABG Hemoglobin ABG Oxyhemoglobin ABG Chloride ABG Glucose Oxyhemoglobin Sodium Potassium Chloride Carbon Dioxide BUN Creatinine Glucose POC Glucose 137 H 128 H Lactic Acid Calcium Phosphorus Magnesium AST ALT Lactate Dehydrogenase Total Bilirubin Direct Bilirubin CK-MB (CK-2) C-Reactive Protein NT-Pro-B Natriuret Pep Total Protein Albumin Arterial Blood Glucose Urine WBC (Auto) Urine Creatinine 12/20/19 12/21/19 12/21/19 23:34 05:31 05:31 WBC 12.7 H RBC 3.09 L Hgb 8.9 L Hct 27.4 L MCHC RDW 15.8 H MCV MCH Lymph % (Auto) 12.1 L [place] % (Auto) 7.8 H [place] # Eos # Lymph # (Auto) [place] # (Auto) 1.0 H Eos # (Auto) Seg Neutrophils % 77.1 H Seg Neuts % (Manual) Baso # (Auto) Lymphocytes % (Manual) Monocytes % (Manual) Eosinophils % (Manual) Basophils % (Manual) Seg Neutrophils # 9.8 H Seg Neutrophils # Man Lymphocytes # (Manual) Monocytes # (Manual) Eosinophils # (Manual) Nucleated RBC % Basophils # (Manual) PT INR APTT Heparin Anti-Xa Level ABG pH POC ABG pO2 ABG pO2 ABG HCO3 ABG O2 Saturation ABG Base Excess POC ABG pCO2 ABG Hemoglobin ABG Oxyhemoglobin ABG Chloride ABG Glucose Oxyhemoglobin Sodium Potassium Chloride 96.9 L Carbon Dioxide 37 H BUN 27 H Creatinine 0.7 L Glucose 140 H POC Glucose 145 H Lactic Acid Calcium Phosphorus Magnesium AST ALT Lactate Dehydrogenase Total Bilirubin Direct Bilirubin CK-MB (CK-2) C-Reactive Protein NT-Pro-B Natriuret Pep Total Protein Albumin Arterial Blood Glucose Urine WBC (Auto) Urine Creatinine 12/21/19 12/21/19 12/21/19 05:38 10:13 11:51 WBC RBC Hgb Hct MCHC RDW MCV MCH Lymph % (Auto) [place] % (Auto) [place] # Eos # Lymph # (Auto) [place] # (Auto) Eos # (Auto) Seg Neutrophils % Seg Neuts % (Manual) Baso # (Auto) Lymphocytes % (Manual) Monocytes % (Manual) Eosinophils % (Manual) Basophils % (Manual) Seg Neutrophils # Seg Neutrophils # Man Lymphocytes # (Manual) Monocytes # (Manual) Eosinophils # (Manual) Nucleated RBC % Basophils # (Manual) PT INR APTT 23.9 L Heparin Anti-Xa Level < 0.10 L ABG pH POC ABG pO2 ABG pO2 ABG HCO3 ABG O2 Saturation ABG Base Excess POC ABG pCO2 ABG Hemoglobin ABG Oxyhemoglobin ABG Chloride ABG Glucose Oxyhemoglobin Sodium Potassium Chloride Carbon Dioxide BUN Creatinine Glucose POC Glucose 151 H 145 H Lactic Acid Calcium Phosphorus Magnesium AST ALT Lactate Dehydrogenase Total Bilirubin Direct Bilirubin CK-MB (CK-2) C-Reactive Protein NT-Pro-B Natriuret Pep Total Protein Albumin Arterial Blood Glucose Urine WBC (Auto) Urine Creatinine 12/21/19 12/22/19 12/22/19 17:16 00:01 01:33 WBC RBC Hgb Hct MCHC RDW MCV MCH Lymph % (Auto) [place] % (Auto) [place] # Eos # Lymph # (Auto) [place] # (Auto) Eos # (Auto) Seg Neutrophils % Seg Neuts % (Manual) Baso # (Auto) Lymphocytes % (Manual) Monocytes % (Manual) Eosinophils % (Manual) Basophils % (Manual) Seg Neutrophils # Seg Neutrophils # Man Lymphocytes # (Manual) Monocytes # (Manual) Eosinophils # (Manual) Nucleated RBC % Basophils # (Manual) PT INR APTT Heparin Anti-Xa Level 0.10 L ABG pH POC ABG pO2 ABG pO2 ABG HCO3 ABG O2 Saturation ABG Base Excess POC ABG pCO2 ABG Hemoglobin ABG Oxyhemoglobin ABG Chloride ABG Glucose Oxyhemoglobin Sodium Potassium Chloride Carbon Dioxide BUN Creatinine Glucose POC Glucose 167 H 179 H Lactic Acid Calcium Phosphorus Magnesium AST ALT Lactate Dehydrogenase Total Bilirubin Direct Bilirubin CK-MB (CK-2) C-Reactive Protein NT-Pro-B Natriuret Pep Total Protein Albumin Arterial Blood Glucose Urine WBC (Auto) Urine Creatinine 12/22/19 12/22/19 12/22/19 03:22 05:10 05:10 WBC 13.8 H RBC 3.20 L Hgb 8.9 L Hct 28.1 L MCHC RDW 15.9 H MCV MCH Lymph % (Auto) [place] % (Auto) [place] # Eos # Lymph # (Auto) [place] # (Auto) Eos # (Auto) Seg Neutrophils % Seg Neuts % (Manual) Baso # (Auto) Lymphocytes % (Manual) Monocytes % (Manual) Eosinophils % (Manual) Basophils % (Manual) Seg Neutrophils # Seg Neutrophils # Man Lymphocytes # (Manual) Monocytes # (Manual) Eosinophils # (Manual) Nucleated RBC % Basophils # (Manual) PT INR APTT Heparin Anti-Xa Level ABG pH POC ABG pO2 52.3 L ABG pO2 ABG HCO3 ABG O2 Saturation ABG Base Excess POC ABG pCO2 52.9 H ABG Hemoglobin 10.7 L ABG Oxyhemoglobin 84 L ABG Chloride ABG Glucose Oxyhemoglobin Sodium Potassium Chloride 96.6 L Carbon Dioxide BUN 25 H Creatinine 0.7 L Glucose 129 H POC Glucose Lactic Acid Calcium Phosphorus Magnesium AST ALT Lactate Dehydrogenase Total Bilirubin Direct Bilirubin CK-MB (CK-2) C-Reactive Protein NT-Pro-B Natriuret Pep Total Protein Albumin Arterial Blood Glucose Urine WBC (Auto) Urine Creatinine 12/22/19 12/22/19 12/22/19 05:18 12:32 12:43 WBC RBC Hgb Hct MCHC RDW MCV MCH Lymph % (Auto) [place] % (Auto) [place] # Eos # Lymph # (Auto) [place] # (Auto) Eos # (Auto) Seg Neutrophils % Seg Neuts % (Manual) Baso # (Auto) Lymphocytes % (Manual) Monocytes % (Manual) Eosinophils % (Manual) Basophils % (Manual) Seg Neutrophils # Seg Neutrophils # Man Lymphocytes # (Manual) Monocytes # (Manual) Eosinophils # (Manual) Nucleated RBC % Basophils # (Manual) PT INR APTT Heparin Anti-Xa Level 0.18 L ABG pH POC ABG pO2 ABG pO2 ABG HCO3 ABG O2 Saturation ABG Base Excess POC ABG pCO2 ABG Hemoglobin ABG Oxyhemoglobin ABG Chloride ABG Glucose Oxyhemoglobin Sodium Potassium Chloride Carbon Dioxide BUN Creatinine Glucose POC Glucose 131 H 208 H Lactic Acid Calcium Phosphorus Magnesium AST ALT Lactate Dehydrogenase Total Bilirubin Direct Bilirubin CK-MB (CK-2) C-Reactive Protein NT-Pro-B Natriuret Pep Total Protein Albumin Arterial Blood Glucose Urine WBC (Auto) Urine Creatinine 12/22/19 12/22/19 12/23/19 17:44 23:20 03:51 WBC 15.2 H RBC 3.43 L Hgb 9.6 L Hct 30.3 L MCHC RDW 15.9 H MCV MCH Lymph % (Auto) [place] % (Auto) [place] # Eos # Lymph # (Auto) [place] # (Auto) Eos # (Auto) Seg Neutrophils % Seg Neuts % (Manual) Baso # (Auto) Lymphocytes % (Manual) Monocytes % (Manual) Eosinophils % (Manual) Basophils % (Manual) Seg Neutrophils # Seg Neutrophils # Man Lymphocytes # (Manual) Monocytes # (Manual) Eosinophils # (Manual) Nucleated RBC % Basophils # (Manual) PT INR APTT Heparin Anti-Xa Level ABG pH POC ABG pO2 ABG pO2 ABG HCO3 ABG O2 Saturation ABG Base Excess POC ABG pCO2 ABG Hemoglobin ABG Oxyhemoglobin ABG Chloride ABG Glucose Oxyhemoglobin Sodium Potassium Chloride Carbon Dioxide BUN Creatinine Glucose POC Glucose 209 H 119 H Lactic Acid Calcium Phosphorus Magnesium AST ALT Lactate Dehydrogenase Total Bilirubin Direct Bilirubin CK-MB (CK-2) C-Reactive Protein NT-Pro-B Natriuret Pep Total Protein Albumin Arterial Blood Glucose Urine WBC (Auto) Urine Creatinine 12/23/19 12/23/19 12/23/19 03:51 05:31 12:09 WBC RBC Hgb Hct MCHC RDW MCV MCH Lymph % (Auto) [place] % (Auto) [place] # Eos # Lymph # (Auto) [place] # (Auto) Eos # (Auto) Seg Neutrophils % Seg Neuts % (Manual) Baso # (Auto) Lymphocytes % (Manual) Monocytes % (Manual) Eosinophils % (Manual) Basophils % (Manual) Seg Neutrophils # Seg Neutrophils # Man Lymphocytes # (Manual) Monocytes # (Manual) Eosinophils # (Manual) Nucleated RBC % Basophils # (Manual) PT INR APTT Heparin Anti-Xa Level ABG pH POC ABG pO2 ABG pO2 ABG HCO3 ABG O2 Saturation ABG Base Excess POC ABG pCO2 ABG Hemoglobin ABG Oxyhemoglobin ABG Chloride ABG Glucose Oxyhemoglobin Sodium Potassium Chloride 97.2 L Carbon Dioxide 31 H BUN 23 H Creatinine 0.6 L Glucose 153 H POC Glucose 149 H 144 H Lactic Acid Calcium Phosphorus Magnesium AST ALT Lactate Dehydrogenase Total Bilirubin Direct Bilirubin CK-MB (CK-2) C-Reactive Protein NT-Pro-B Natriuret Pep Total Protein Albumin Arterial Blood Glucose Urine WBC (Auto) Urine Creatinine 12/23/19 12/23/19 12/23/19 15:30 17:49 23:31 WBC RBC Hgb Hct MCHC RDW MCV MCH Lymph % (Auto) [place] % (Auto) [place] # Eos # Lymph # (Auto) [place] # (Auto) Eos # (Auto) Seg Neutrophils % Seg Neuts % (Manual) Baso # (Auto) Lymphocytes % (Manual) Monocytes % (Manual) Eosinophils % (Manual) Basophils % (Manual) Seg Neutrophils # Seg Neutrophils # Man Lymphocytes # (Manual) Monocytes # (Manual) Eosinophils # (Manual) Nucleated RBC % Basophils # (Manual) PT INR APTT Heparin Anti-Xa Level 0.21 L ABG pH POC ABG pO2 ABG pO2 ABG HCO3 ABG O2 Saturation ABG Base Excess POC ABG pCO2 ABG Hemoglobin ABG Oxyhemoglobin ABG Chloride ABG Glucose Oxyhemoglobin Sodium Potassium Chloride Carbon Dioxide BUN Creatinine Glucose POC Glucose 192 H 151 H Lactic Acid Calcium Phosphorus Magnesium AST ALT Lactate Dehydrogenase Total Bilirubin Direct Bilirubin CK-MB (CK-2) C-Reactive Protein NT-Pro-B Natriuret Pep Total Protein Albumin Arterial Blood Glucose Urine WBC (Auto) Urine Creatinine 12/24/19 12/24/19 12/24/19 05:34 12:13 16:50 WBC RBC Hgb Hct MCHC RDW MCV MCH Lymph % (Auto) [place] % (Auto) [place] # Eos # Lymph # (Auto) [place] # (Auto) Eos # (Auto) Seg Neutrophils % Seg Neuts % (Manual) Baso # (Auto) Lymphocytes % (Manual) Monocytes % (Manual) Eosinophils % (Manual) Basophils % (Manual) Seg Neutrophils # Seg Neutrophils # Man Lymphocytes # (Manual) Monocytes # (Manual) Eosinophils # (Manual) Nucleated RBC % Basophils # (Manual) PT INR APTT Heparin Anti-Xa Level 0.16 L ABG pH POC ABG pO2 ABG pO2 ABG HCO3 ABG O2 Saturation ABG Base Excess POC ABG pCO2 ABG Hemoglobin ABG Oxyhemoglobin ABG Chloride ABG Glucose Oxyhemoglobin Sodium Potassium Chloride Carbon Dioxide BUN Creatinine Glucose POC Glucose 145 H 124 H Lactic Acid Calcium Phosphorus Magnesium AST ALT Lactate Dehydrogenase Total Bilirubin Direct Bilirubin CK-MB (CK-2) C-Reactive Protein NT-Pro-B Natriuret Pep Total Protein Albumin Arterial Blood Glucose Urine WBC (Auto) Urine Creatinine 12/24/19 12/25/19 12/25/19 17:53 00:14 04:18 WBC 12.9 H RBC 3.30 L Hgb 9.1 L Hct 28.8 L MCHC RDW 16.4 H MCV MCH Lymph % (Auto) [place] % (Auto) 7.8 H [place] # Eos # Lymph # (Auto) [place] # (Auto) 1.0 H Eos # (Auto) Seg Neutrophils % 75.5 H Seg Neuts % (Manual) Baso # (Auto) Lymphocytes % (Manual) Monocytes % (Manual) Eosinophils % (Manual) Basophils % (Manual) Seg Neutrophils # 9.7 H Seg Neutrophils # Man Lymphocytes # (Manual) Monocytes # (Manual) Eosinophils # (Manual) Nucleated RBC % Basophils # (Manual) PT INR APTT Heparin Anti-Xa Level ABG pH POC ABG pO2 ABG pO2 ABG HCO3 ABG O2 Saturation ABG Base Excess POC ABG pCO2 ABG Hemoglobin ABG Oxyhemoglobin ABG Chloride ABG Glucose Oxyhemoglobin Sodium Potassium Chloride Carbon Dioxide BUN Creatinine Glucose POC Glucose 164 H 148 H Lactic Acid Calcium Phosphorus Magnesium AST ALT Lactate Dehydrogenase Total Bilirubin Direct Bilirubin CK-MB (CK-2) C-Reactive Protein NT-Pro-B Natriuret Pep Total Protein Albumin Arterial Blood Glucose Urine WBC (Auto) Urine Creatinine 12/25/19 12/25/19 12/25/19 04:18 05:38 11:44 WBC RBC Hgb Hct MCHC RDW MCV MCH Lymph % (Auto) Liberty % (Auto) Liberty # Eos # Lymph # (Auto) [place] # (Auto) Eos # (Auto) Seg Neutrophils % Seg Neuts % (Manual) Baso # (Auto) Lymphocytes % (Manual) Monocytes % (Manual) Eosinophils % (Manual) Basophils % (Manual) Seg Neutrophils # Seg Neutrophils # Man Lymphocytes # (Manual) Monocytes # (Manual) Eosinophils # (Manual) Nucleated RBC % Basophils # (Manual) PT INR APTT Heparin Anti-Xa Level ABG pH POC ABG pO2 ABG pO2 ABG HCO3 ABG O2 Saturation ABG Base Excess POC ABG pCO2 ABG Hemoglobin ABG Oxyhemoglobin ABG Chloride ABG Glucose Oxyhemoglobin Sodium Potassium Chloride Carbon Dioxide 33 H BUN 27 H Creatinine 0.6 L Glucose 132 H POC Glucose 152 H 166 H Lactic Acid Calcium Phosphorus Magnesium AST ALT Lactate Dehydrogenase Total Bilirubin Direct Bilirubin CK-MB (CK-2) C-Reactive Protein NT-Pro-B Natriuret Pep Total Protein Albumin Arterial Blood Glucose Urine WBC (Auto) Urine Creatinine 12/25/19 12/26/19 12/26/19 18:29 00:17 00:18 WBC RBC Hgb Hct MCHC RDW MCV MCH Lymph % (Auto) [place] % (Auto) [place] # Eos # Lymph # (Auto) [place] # (Auto) Eos # (Auto) Seg Neutrophils % Seg Neuts % (Manual) Baso # (Auto) Lymphocytes % (Manual) Monocytes % (Manual) Eosinophils % (Manual) Basophils % (Manual) Seg Neutrophils # Seg Neutrophils # Man Lymphocytes # (Manual) Monocytes # (Manual) Eosinophils # (Manual) Nucleated RBC % Basophils # (Manual) PT INR APTT Heparin Anti-Xa Level ABG pH POC ABG pO2 ABG pO2 ABG HCO3 ABG O2 Saturation ABG Base Excess POC ABG pCO2 ABG Hemoglobin ABG Oxyhemoglobin ABG Chloride ABG Glucose Oxyhemoglobin Sodium Potassium Chloride 97.8 L Carbon Dioxide BUN 25 H Creatinine 0.6 L Glucose 140 H POC Glucose 194 H 151 H Lactic Acid Calcium Phosphorus Magnesium AST ALT Lactate Dehydrogenase Total Bilirubin Direct Bilirubin CK-MB (CK-2) C-Reactive Protein NT-Pro-B Natriuret Pep Total Protein Albumin Arterial Blood Glucose Urine WBC (Auto) Urine Creatinine 12/26/19 12/26/19 12/26/19 05:36 11:41 17:50 WBC RBC Hgb Hct MCHC RDW MCV MCH Lymph % (Auto) [place] % (Auto) [place] # Eos # Lymph # (Auto) [place] # (Auto) Eos # (Auto) Seg Neutrophils % Seg Neuts % (Manual) Baso # (Auto) Lymphocytes % (Manual) Monocytes % (Manual) Eosinophils % (Manual) Basophils % (Manual) Seg Neutrophils # Seg Neutrophils # Man Lymphocytes # (Manual) Monocytes # (Manual) Eosinophils # (Manual) Nucleated RBC % Basophils # (Manual) PT INR APTT Heparin Anti-Xa Level ABG pH POC ABG pO2 ABG pO2 ABG HCO3 ABG O2 Saturation ABG Base Excess POC ABG pCO2 ABG Hemoglobin ABG Oxyhemoglobin ABG Chloride ABG Glucose Oxyhemoglobin Sodium Potassium Chloride Carbon Dioxide BUN Creatinine Glucose POC Glucose 156 H 148 H 139 H Lactic Acid Calcium Phosphorus Magnesium AST ALT Lactate Dehydrogenase Total Bilirubin Direct Bilirubin CK-MB (CK-2) C-Reactive Protein NT-Pro-B Natriuret Pep Total Protein Albumin Arterial Blood Glucose Urine WBC (Auto) Urine Creatinine 12/26/19 12/27/19 12/27/19 23:19 05:34 12:02 WBC RBC Hgb Hct MCHC RDW MCV MCH Lymph % (Auto) [place] % (Auto) [place] # Eos # Lymph # (Auto) [place] # (Auto) Eos # (Auto) Seg Neutrophils % Seg Neuts % (Manual) Baso # (Auto) Lymphocytes % (Manual) Monocytes % (Manual) Eosinophils % (Manual) Basophils % (Manual) Seg Neutrophils # Seg Neutrophils # Man Lymphocytes # (Manual) Monocytes # (Manual) Eosinophils # (Manual) Nucleated RBC % Basophils # (Manual) PT INR APTT Heparin Anti-Xa Level ABG pH POC ABG pO2 ABG pO2 ABG HCO3 ABG O2 Saturation ABG Base Excess POC ABG pCO2 ABG Hemoglobin ABG Oxyhemoglobin ABG Chloride ABG Glucose Oxyhemoglobin Sodium Potassium Chloride Carbon Dioxide BUN Creatinine Glucose POC Glucose 161 H 145 H 157 H Lactic Acid Calcium Phosphorus Magnesium AST ALT Lactate Dehydrogenase Total Bilirubin Direct Bilirubin CK-MB (CK-2) C-Reactive Protein NT-Pro-B Natriuret Pep Total Protein Albumin Arterial Blood Glucose Urine WBC (Auto) Urine Creatinine 12/27/19 12/27/19 12/27/19 17:35 20:11 23:00 WBC RBC Hgb Hct MCHC RDW MCV MCH Lymph % (Auto) [place] % (Auto) [place] # Eos # Lymph # (Auto) [place] # (Auto) Eos # (Auto) Seg Neutrophils % Seg Neuts % (Manual) Baso # (Auto) Lymphocytes % (Manual) Monocytes % (Manual) Eosinophils % (Manual) Basophils % (Manual) Seg Neutrophils # Seg Neutrophils # Man Lymphocytes # (Manual) Monocytes # (Manual) Eosinophils # (Manual) Nucleated RBC % Basophils # (Manual) PT INR APTT Heparin Anti-Xa Level 0.19 L ABG pH POC ABG pO2 ABG pO2 ABG HCO3 ABG O2 Saturation ABG Base Excess POC ABG pCO2 ABG Hemoglobin ABG Oxyhemoglobin ABG Chloride ABG Glucose Oxyhemoglobin Sodium Potassium Chloride Carbon Dioxide BUN Creatinine Glucose POC Glucose 158 H 155 H Lactic Acid Calcium Phosphorus Magnesium AST ALT Lactate Dehydrogenase Total Bilirubin Direct Bilirubin CK-MB (CK-2) C-Reactive Protein NT-Pro-B Natriuret Pep Total Protein Albumin Arterial Blood Glucose Urine WBC (Auto) Urine Creatinine 12/27/19 12/28/19 12/28/19 23:45 02:41 02:41 WBC 13.0 H RBC 3.48 L Hgb 9.5 L Hct 30.6 L MCHC 31 L RDW 16.6 H MCV MCH 27 L Lymph % (Auto) 13.0 L [place] % (Auto) 8.0 H [place] # Eos # Lymph # (Auto) [place] # (Auto) 1.0 H Eos # (Auto) Seg Neutrophils % 76.3 H Seg Neuts % (Manual) Baso # (Auto) Lymphocytes % (Manual) Monocytes % (Manual) Eosinophils % (Manual) Basophils % (Manual) Seg Neutrophils # 9.9 H Seg Neutrophils # Man Lymphocytes # (Manual) Monocytes # (Manual) Eosinophils # (Manual) Nucleated RBC % Basophils # (Manual) PT INR APTT Heparin Anti-Xa Level ABG pH POC ABG pO2 ABG pO2 ABG HCO3 ABG O2 Saturation ABG Base Excess POC ABG pCO2 ABG Hemoglobin ABG Oxyhemoglobin ABG Chloride ABG Glucose Oxyhemoglobin Sodium Potassium Chloride Carbon Dioxide BUN 22 H Creatinine 0.6 L Glucose 101 H POC Glucose 130 H Lactic Acid Calcium Phosphorus Magnesium AST ALT Lactate Dehydrogenase Total Bilirubin Direct Bilirubin CK-MB (CK-2) C-Reactive Protein NT-Pro-B Natriuret Pep Total Protein Albumin Arterial Blood Glucose Urine WBC (Auto) Urine Creatinine 12/28/19 12/28/19 12/28/19 06:00 12:34 18:13 WBC RBC Hgb Hct MCHC RDW MCV MCH Lymph % (Auto) [place] % (Auto) [place] # Eos # Lymph # (Auto) [place] # (Auto) Eos # (Auto) Seg Neutrophils % Seg Neuts % (Manual) Baso # (Auto) Lymphocytes % (Manual) Monocytes % (Manual) Eosinophils % (Manual) Basophils % (Manual) Seg Neutrophils # Seg Neutrophils # Man Lymphocytes # (Manual) Monocytes # (Manual) Eosinophils # (Manual) Nucleated RBC % Basophils # (Manual) PT INR APTT Heparin Anti-Xa Level ABG pH POC ABG pO2 ABG pO2 ABG HCO3 ABG O2 Saturation ABG Base Excess POC ABG pCO2 ABG Hemoglobin ABG Oxyhemoglobin ABG Chloride ABG Glucose Oxyhemoglobin Sodium Potassium Chloride Carbon Dioxide BUN Creatinine Glucose POC Glucose 150 H 161 H 128 H Lactic Acid Calcium Phosphorus Magnesium AST ALT Lactate Dehydrogenase Total Bilirubin Direct Bilirubin CK-MB (CK-2) C-Reactive Protein NT-Pro-B Natriuret Pep Total Protein Albumin Arterial Blood Glucose Urine WBC (Auto) Urine Creatinine 12/28/19 12/29/19 12/29/19 23:36 05:21 11:40 WBC RBC Hgb Hct MCHC RDW MCV MCH Lymph % (Auto) [place] % (Auto) [place] # Eos # Lymph # (Auto) [place] # (Auto) Eos # (Auto) Seg Neutrophils % Seg Neuts % (Manual) Baso # (Auto) Lymphocytes % (Manual) Monocytes % (Manual) Eosinophils % (Manual) Basophils % (Manual) Seg Neutrophils # Seg Neutrophils # Man Lymphocytes # (Manual) Monocytes # (Manual) Eosinophils # (Manual) Nucleated RBC % Basophils # (Manual) PT INR APTT Heparin Anti-Xa Level ABG pH POC ABG pO2 ABG pO2 ABG HCO3 ABG O2 Saturation ABG Base Excess POC ABG pCO2 ABG Hemoglobin ABG Oxyhemoglobin ABG Chloride ABG Glucose Oxyhemoglobin Sodium Potassium Chloride Carbon Dioxide BUN Creatinine Glucose POC Glucose 137 H 136 H 166 H Lactic Acid Calcium Phosphorus Magnesium AST ALT Lactate Dehydrogenase Total Bilirubin Direct Bilirubin CK-MB (CK-2) C-Reactive Protein NT-Pro-B Natriuret Pep Total Protein Albumin Arterial Blood Glucose Urine WBC (Auto) Urine Creatinine 12/29/19 12/29/19 12/29/19 17:23 19:21 23:38 WBC RBC Hgb Hct MCHC RDW MCV MCH Lymph % (Auto) [place] % (Auto) [place] # Eos # Lymph # (Auto) [place] # (Auto) Eos # (Auto) Seg Neutrophils % Seg Neuts % (Manual) Baso # (Auto) Lymphocytes % (Manual) Monocytes % (Manual) Eosinophils % (Manual) Basophils % (Manual) Seg Neutrophils # Seg Neutrophils # Man Lymphocytes # (Manual) Monocytes # (Manual) Eosinophils # (Manual) Nucleated RBC % Basophils # (Manual) PT INR APTT Heparin Anti-Xa Level 0.20 L ABG pH POC ABG pO2 ABG pO2 ABG HCO3 ABG O2 Saturation ABG Base Excess POC ABG pCO2 ABG Hemoglobin ABG Oxyhemoglobin ABG Chloride ABG Glucose Oxyhemoglobin Sodium Potassium Chloride Carbon Dioxide BUN Creatinine Glucose POC Glucose 144 H 141 H Lactic Acid Calcium Phosphorus Magnesium AST ALT Lactate Dehydrogenase Total Bilirubin Direct Bilirubin CK-MB (CK-2) C-Reactive Protein NT-Pro-B Natriuret Pep Total Protein Albumin Arterial Blood Glucose Urine WBC (Auto) Urine Creatinine 12/30/19 12/30/19 12/30/19 03:58 03:58 04:59 WBC RBC 3.54 L Hgb 9.8 L Hct 30.7 L MCHC RDW 16.8 H MCV MCH Lymph % (Auto) [place] % (Auto) [place] # Eos # Lymph # (Auto) [place] # (Auto) Eos # (Auto) Seg Neutrophils % Seg Neuts % (Manual) Baso # (Auto) Lymphocytes % (Manual) Monocytes % (Manual) Eosinophils % (Manual) Basophils % (Manual) Seg Neutrophils # Seg Neutrophils # Man Lymphocytes # (Manual) Monocytes # (Manual) Eosinophils # (Manual) Nucleated RBC % Basophils # (Manual) PT INR APTT Heparin Anti-Xa Level ABG pH POC ABG pO2 ABG pO2 ABG HCO3 29.8 H ABG O2 Saturation ABG Base Excess 4.8 H POC ABG pCO2 ABG Hemoglobin 11.2 L ABG Oxyhemoglobin ABG Chloride ABG Glucose Oxyhemoglobin 93.8 L Sodium Potassium Chloride 97.8 L Carbon Dioxide BUN 26 H Creatinine Glucose 168 H POC Glucose Lactic Acid Calcium Phosphorus Magnesium AST ALT Lactate Dehydrogenase Total Bilirubin Direct Bilirubin CK-MB (CK-2) C-Reactive Protein NT-Pro-B Natriuret Pep Total Protein Albumin Arterial Blood Glucose Urine WBC (Auto) Urine Creatinine 12/30/19 12/30/19 12/30/19 05:45 11:34 17:28 WBC RBC Hgb Hct MCHC RDW MCV MCH Lymph % (Auto) [place] % (Auto) [place] # Eos # Lymph # (Auto) [place] # (Auto) Eos # (Auto) Seg Neutrophils % Seg Neuts % (Manual) Baso # (Auto) Lymphocytes % (Manual) Monocytes % (Manual) Eosinophils % (Manual) Basophils % (Manual) Seg Neutrophils # Seg Neutrophils # Man Lymphocytes # (Manual) Monocytes # (Manual) Eosinophils # (Manual) Nucleated RBC % Basophils # (Manual) PT INR APTT Heparin Anti-Xa Level ABG pH POC ABG pO2 ABG pO2 ABG HCO3 ABG O2 Saturation ABG Base Excess POC ABG pCO2 ABG Hemoglobin ABG Oxyhemoglobin ABG Chloride ABG Glucose Oxyhemoglobin Sodium Potassium Chloride Carbon Dioxide BUN Creatinine Glucose POC Glucose 163 H 180 H 150 H Lactic Acid Calcium Phosphorus Magnesium AST ALT Lactate Dehydrogenase Total Bilirubin Direct Bilirubin CK-MB (CK-2) C-Reactive Protein NT-Pro-B Natriuret Pep Total Protein Albumin Arterial Blood Glucose Urine WBC (Auto) Urine Creatinine 12/30/19 12/31/19 12/31/19 23:43 04:55 05:07 WBC RBC Hgb Hct MCHC RDW MCV MCH Lymph % (Auto) [place] % (Auto) [place] # Eos # Lymph # (Auto) [place] # (Auto) Eos # (Auto) Seg Neutrophils % Seg Neuts % (Manual) Baso # (Auto) Lymphocytes % (Manual) Monocytes % (Manual) Eosinophils % (Manual) Basophils % (Manual) Seg Neutrophils # Seg Neutrophils # Man Lymphocytes # (Manual) Monocytes # (Manual) Eosinophils # (Manual) Nucleated RBC % Basophils # (Manual) PT INR APTT Heparin Anti-Xa Level ABG pH POC ABG pO2 ABG pO2 ABG HCO3 ABG O2 Saturation ABG Base Excess POC ABG pCO2 ABG Hemoglobin ABG Oxyhemoglobin ABG Chloride ABG Glucose Oxyhemoglobin Sodium Potassium 5.6 H D Chloride Carbon Dioxide BUN 33 H Creatinine Glucose 131 H POC Glucose 142 H 134 H Lactic Acid Calcium Phosphorus Magnesium AST ALT Lactate Dehydrogenase Total Bilirubin Direct Bilirubin CK-MB (CK-2) C-Reactive Protein NT-Pro-B Natriuret Pep Total Protein Albumin Arterial Blood Glucose Urine WBC (Auto) Urine Creatinine 12/31/19 12/31/19 12/31/19 11:30 17:19 17:36 WBC RBC Hgb Hct MCHC RDW MCV MCH Lymph % (Auto) [place] % (Auto) [place] # Eos # Lymph # (Auto) [place] # (Auto) Eos # (Auto) Seg Neutrophils % Seg Neuts % (Manual) Baso # (Auto) Lymphocytes % (Manual) Monocytes % (Manual) Eosinophils % (Manual) Basophils % (Manual) Seg Neutrophils # Seg Neutrophils # Man Lymphocytes # (Manual) Monocytes # (Manual) Eosinophils # (Manual) Nucleated RBC % Basophils # (Manual) PT INR APTT Heparin Anti-Xa Level ABG pH POC ABG pO2 ABG pO2 ABG HCO3 ABG O2 Saturation ABG Base Excess POC ABG pCO2 ABG Hemoglobin ABG Oxyhemoglobin ABG Chloride ABG Glucose Oxyhemoglobin Sodium Potassium Chloride Carbon Dioxide BUN 35 H Creatinine Glucose 156 H POC Glucose 158 H 181 H Lactic Acid Calcium Phosphorus Magnesium AST ALT Lactate Dehydrogenase Total Bilirubin Direct Bilirubin CK-MB (CK-2) C-Reactive Protein NT-Pro-B Natriuret Pep Total Protein Albumin Arterial Blood Glucose Urine WBC (Auto) Urine Creatinine 12/31/19 12/31/19 12/31/19 18:16 19:41 21:53 WBC RBC Hgb Hct MCHC RDW MCV MCH Lymph % (Auto) [place] % (Auto) [place] # Eos # Lymph # (Auto) [place] # (Auto) Eos # (Auto) Seg Neutrophils % Seg Neuts % (Manual) Baso # (Auto) Lymphocytes % (Manual) Monocytes % (Manual) Eosinophils % (Manual) Basophils % (Manual) Seg Neutrophils # Seg Neutrophils # Man Lymphocytes # (Manual) Monocytes # (Manual) Eosinophils # (Manual) Nucleated RBC % Basophils # (Manual) PT INR APTT Heparin Anti-Xa Level 0.20 L ABG pH POC ABG pO2 ABG pO2 ABG HCO3 ABG O2 Saturation ABG Base Excess POC ABG pCO2 ABG Hemoglobin ABG Oxyhemoglobin ABG Chloride ABG Glucose Oxyhemoglobin Sodium Potassium Chloride Carbon Dioxide BUN 34 H Creatinine Glucose 169 H POC Glucose 141 H Lactic Acid Calcium Phosphorus Magnesium AST ALT Lactate Dehydrogenase Total Bilirubin Direct Bilirubin CK-MB (CK-2) C-Reactive Protein NT-Pro-B Natriuret Pep Total Protein Albumin Arterial Blood Glucose Urine WBC (Auto) Urine Creatinine 12/31/19 01/01/20 01/01/20 23:51 05:17 10:40 WBC RBC Hgb Hct MCHC RDW MCV MCH Lymph % (Auto) [place] % (Auto) [place] # Eos # Lymph # (Auto) [place] # (Auto) Eos # (Auto) Seg Neutrophils % Seg Neuts % (Manual) Baso # (Auto) Lymphocytes % (Manual) Monocytes % (Manual) Eosinophils % (Manual) Basophils % (Manual) Seg Neutrophils # Seg Neutrophils # Man Lymphocytes # (Manual) Monocytes # (Manual) Eosinophils # (Manual) Nucleated RBC % Basophils # (Manual) PT INR APTT Heparin Anti-Xa Level ABG pH POC ABG pO2 ABG pO2 ABG HCO3 ABG O2 Saturation ABG Base Excess POC ABG pCO2 ABG Hemoglobin ABG Oxyhemoglobin ABG Chloride ABG Glucose Oxyhemoglobin Sodium Potassium Chloride Carbon Dioxide BUN 31 H Creatinine 0.7 L Glucose 137 H POC Glucose 131 H 155 H Lactic Acid Calcium Phosphorus Magnesium AST 73 H ALT 97 H Lactate Dehydrogenase Total Bilirubin Direct Bilirubin CK-MB (CK-2) C-Reactive Protein NT-Pro-B Natriuret Pep 3866 H Total Protein Albumin 2.8 L Arterial Blood Glucose Urine WBC (Auto) Urine Creatinine 01/01/20 01/01/20 01/01/20 12:26 15:33 17:53 WBC 14.3 H RBC 3.35 L Hgb 9.1 L Hct 28.8 L MCHC RDW 17.0 H MCV MCH 27 L Lymph % (Auto) 7.0 L [place] % (Auto) 7.6 H [place] # Eos # Lymph # (Auto) 1.0 L [place] # (Auto) 1.1 H Eos # (Auto) Seg Neutrophils % 83.3 H Seg Neuts % (Manual) Baso # (Auto) Lymphocytes % (Manual) Monocytes % (Manual) Eosinophils % (Manual) Basophils % (Manual) Seg Neutrophils # 12.0 H Seg Neutrophils # Man Lymphocytes # (Manual) Monocytes # (Manual) Eosinophils # (Manual) Nucleated RBC % Basophils # (Manual) PT INR APTT Heparin Anti-Xa Level ABG pH POC ABG pO2 ABG pO2 ABG HCO3 ABG O2 Saturation ABG Base Excess POC ABG pCO2 ABG Hemoglobin ABG Oxyhemoglobin ABG Chloride ABG Glucose Oxyhemoglobin Sodium Potassium Chloride Carbon Dioxide BUN Creatinine Glucose POC Glucose 128 H 128 H Lactic Acid Calcium Phosphorus Magnesium AST ALT Lactate Dehydrogenase Total Bilirubin Direct Bilirubin CK-MB (CK-2) C-Reactive Protein NT-Pro-B Natriuret Pep Total Protein Albumin Arterial Blood Glucose Urine WBC (Auto) Urine Creatinine 01/01/20 01/02/20 01/02/20 23:04 05:39 07:00 WBC RBC Hgb Hct MCHC RDW MCV MCH Lymph % (Auto) [place] % (Auto) [place] # Eos # Lymph # (Auto) [place] # (Auto) Eos # (Auto) Seg Neutrophils % Seg Neuts % (Manual) Baso # (Auto) Lymphocytes % (Manual) Monocytes % (Manual) Eosinophils % (Manual) Basophils % (Manual) Seg Neutrophils # Seg Neutrophils # Man Lymphocytes # (Manual) Monocytes # (Manual) Eosinophils # (Manual) Nucleated RBC % Basophils # (Manual) PT INR APTT Heparin Anti-Xa Level 0.13 L ABG pH POC ABG pO2 ABG pO2 ABG HCO3 ABG O2 Saturation ABG Base Excess POC ABG pCO2 ABG Hemoglobin ABG Oxyhemoglobin ABG Chloride ABG Glucose Oxyhemoglobin Sodium Potassium Chloride Carbon Dioxide BUN Creatinine Glucose POC Glucose 120 H 169 H Lactic Acid Calcium Phosphorus Magnesium AST ALT Lactate Dehydrogenase Total Bilirubin Direct Bilirubin CK-MB (CK-2) C-Reactive Protein NT-Pro-B Natriuret Pep Total Protein Albumin Arterial Blood Glucose Urine WBC (Auto) Urine Creatinine 01/02/20 01/02/20 01/02/20 12:15 14:06 17:58 WBC RBC Hgb Hct MCHC RDW MCV MCH Lymph % (Auto) [place] % (Auto) [place] # Eos # Lymph # (Auto) [place] # (Auto) Eos # (Auto) Seg Neutrophils % Seg Neuts % (Manual) Baso # (Auto) Lymphocytes % (Manual) Monocytes % (Manual) Eosinophils % (Manual) Basophils % (Manual) Seg Neutrophils # Seg Neutrophils # Man Lymphocytes # (Manual) Monocytes # (Manual) Eosinophils # (Manual) Nucleated RBC % Basophils # (Manual) PT INR APTT Heparin Anti-Xa Level < 0.10 L ABG pH POC ABG pO2 ABG pO2 ABG HCO3 ABG O2 Saturation ABG Base Excess POC ABG pCO2 ABG Hemoglobin ABG Oxyhemoglobin ABG Chloride ABG Glucose Oxyhemoglobin Sodium Potassium Chloride Carbon Dioxide BUN Creatinine Glucose POC Glucose 190 H 198 H Lactic Acid Calcium Phosphorus Magnesium AST ALT Lactate Dehydrogenase Total Bilirubin Direct Bilirubin CK-MB (CK-2) C-Reactive Protein NT-Pro-B Natriuret Pep Total Protein Albumin Arterial Blood Glucose Urine WBC (Auto) Urine Creatinine 01/02/20 01/02/20 01/03/20 21:43 23:33 05:42 WBC RBC Hgb Hct MCHC RDW MCV MCH Lymph % (Auto) [place] % (Auto) [place] # Eos # Lymph # (Auto) [place] # (Auto) Eos # (Auto) Seg Neutrophils % Seg Neuts % (Manual) Baso # (Auto) Lymphocytes % (Manual) Monocytes % (Manual) Eosinophils % (Manual) Basophils % (Manual) Seg Neutrophils # Seg Neutrophils # Man Lymphocytes # (Manual) Monocytes # (Manual) Eosinophils # (Manual) Nucleated RBC % Basophils # (Manual) PT INR APTT Heparin Anti-Xa Level 0.10 L ABG pH POC ABG pO2 ABG pO2 ABG HCO3 ABG O2 Saturation ABG Base Excess POC ABG pCO2 ABG Hemoglobin ABG Oxyhemoglobin ABG Chloride ABG Glucose Oxyhemoglobin Sodium Potassium Chloride Carbon Dioxide BUN Creatinine Glucose POC Glucose 180 H 163 H Lactic Acid Calcium Phosphorus Magnesium AST ALT Lactate Dehydrogenase Total Bilirubin Direct Bilirubin CK-MB (CK-2) C-Reactive Protein NT-Pro-B Natriuret Pep Total Protein Albumin Arterial Blood Glucose Urine WBC (Auto) Urine Creatinine 01/03/20 01/03/20 01/03/20 06:50 07:25 07:45 WBC 12.1 H RBC 3.35 L Hgb 9.0 L Hct 28.9 L MCHC 31 L RDW 16.6 H MCV MCH 27 L Lymph % (Auto) 13.0 L [place] % (Auto) 8.6 H [place] # Eos # Lymph # (Auto) [place] # (Auto) 1.0 H Eos # (Auto) Seg Neutrophils % 75.9 H Seg Neuts % (Manual) Baso # (Auto) Lymphocytes % (Manual) Monocytes % (Manual) Eosinophils % (Manual) Basophils % (Manual) Seg Neutrophils # 9.2 H Seg Neutrophils # Man Lymphocytes # (Manual) Monocytes # (Manual) Eosinophils # (Manual) Nucleated RBC % Basophils # (Manual) PT INR APTT Heparin Anti-Xa Level 0.29 L ABG pH POC ABG pO2 ABG pO2 ABG HCO3 ABG O2 Saturation ABG Base Excess POC ABG pCO2 ABG Hemoglobin ABG Oxyhemoglobin ABG Chloride ABG Glucose Oxyhemoglobin Sodium Potassium 3.3 L D Chloride Carbon Dioxide 35 H D BUN 23 H Creatinine 0.6 L Glucose 149 H POC Glucose Lactic Acid Calcium Phosphorus Magnesium AST ALT 88 H Lactate Dehydrogenase Total Bilirubin Direct Bilirubin CK-MB (CK-2) C-Reactive Protein NT-Pro-B Natriuret Pep Total Protein 6.2 L Albumin 2.9 L Arterial Blood Glucose Urine WBC (Auto) Urine Creatinine 01/03/20 01/03/20 01/03/20 12:05 17:42 18:30 WBC RBC Hgb Hct MCHC RDW MCV MCH Lymph % (Auto) [place] % (Auto) [place] # Eos # Lymph # (Auto) [place] # (Auto) Eos # (Auto) Seg Neutrophils % Seg Neuts % (Manual) Baso # (Auto) Lymphocytes % (Manual) Monocytes % (Manual) Eosinophils % (Manual) Basophils % (Manual) Seg Neutrophils # Seg Neutrophils # Man Lymphocytes # (Manual) Monocytes # (Manual) Eosinophils # (Manual) Nucleated RBC % Basophils # (Manual) PT INR APTT Heparin Anti-Xa Level ABG pH POC ABG pO2 ABG pO2 70.7 L ABG HCO3 36.1 H ABG O2 Saturation 94.4 L ABG Base Excess 10.0 H POC ABG pCO2 ABG Hemoglobin 9.7 L ABG Oxyhemoglobin ABG Chloride ABG Glucose Oxyhemoglobin 91.8 L Sodium Potassium Chloride Carbon Dioxide BUN Creatinine Glucose POC Glucose 128 H 132 H Lactic Acid Calcium Phosphorus Magnesium AST ALT Lactate Dehydrogenase Total Bilirubin Direct Bilirubin CK-MB (CK-2) C-Reactive Protein NT-Pro-B Natriuret Pep Total Protein Albumin Arterial Blood Glucose Urine WBC (Auto) Urine Creatinine 01/04/20 01/04/20 01/04/20 00:10 04:26 05:23 WBC RBC Hgb Hct MCHC RDW MCV MCH Lymph % (Auto) [place] % (Auto) [place] # Eos # Lymph # (Auto) [place] # (Auto) Eos # (Auto) Seg Neutrophils % Seg Neuts % (Manual) Baso # (Auto) Lymphocytes % (Manual) Monocytes % (Manual) Eosinophils % (Manual) Basophils % (Manual) Seg Neutrophils # Seg Neutrophils # Man Lymphocytes # (Manual) Monocytes # (Manual) Eosinophils # (Manual) Nucleated RBC % Basophils # (Manual) PT INR APTT Heparin Anti-Xa Level 0.16 L ABG pH POC ABG pO2 ABG pO2 ABG HCO3 ABG O2 Saturation ABG Base Excess POC ABG pCO2 ABG Hemoglobin ABG Oxyhemoglobin ABG Chloride ABG Glucose Oxyhemoglobin Sodium Potassium Chloride Carbon Dioxide BUN Creatinine Glucose POC Glucose 121 H 119 H Lactic Acid Calcium Phosphorus Magnesium AST ALT Lactate Dehydrogenase Total Bilirubin Direct Bilirubin CK-MB (CK-2) C-Reactive Protein NT-Pro-B Natriuret Pep Total Protein Albumin Arterial Blood Glucose Urine WBC (Auto) Urine Creatinine 01/04/20 01/04/20 01/04/20 09:50 09:50 12:18 WBC 15.4 H RBC 3.30 L Hgb 8.7 L Hct 28.2 L MCHC 31 L RDW 17.0 H MCV MCH 26 L Lymph % (Auto) [place] % (Auto) 7.6 H [place] # Eos # Lymph # (Auto) [place] # (Auto) 1.2 H Eos # (Auto) Seg Neutrophils % 75.4 H Seg Neuts % (Manual) Baso # (Auto) Lymphocytes % (Manual) Monocytes % (Manual) Eosinophils % (Manual) Basophils % (Manual) Seg Neutrophils # 11.6 H Seg Neutrophils # Man Lymphocytes # (Manual) Monocytes # (Manual) Eosinophils # (Manual) Nucleated RBC % Basophils # (Manual) PT INR APTT Heparin Anti-Xa Level ABG pH POC ABG pO2 ABG pO2 ABG HCO3 ABG O2 Saturation ABG Base Excess POC ABG pCO2 ABG Hemoglobin ABG Oxyhemoglobin ABG Chloride ABG Glucose Oxyhemoglobin Sodium 148 H Potassium 3.5 L Chloride Carbon Dioxide 32 H BUN Creatinine 0.6 L Glucose 114 H POC Glucose 111 H Lactic Acid Calcium Phosphorus Magnesium AST ALT 59 H Lactate Dehydrogenase Total Bilirubin Direct Bilirubin CK-MB (CK-2) C-Reactive Protein NT-Pro-B Natriuret Pep Total Protein Albumin 2.6 L Arterial Blood Glucose Urine WBC (Auto) Urine Creatinine 01/05/20 01/05/20 01/05/20 04:05 04:05 05:19 WBC 11.7 H RBC 3.50 L Hgb 9.3 L Hct 29.9 L MCHC 31 L RDW 16.6 H MCV MCH 27 L Lymph % (Auto) 13.1 L [place] % (Auto) 9.7 H [place] # Eos # Lymph # (Auto) [place] # (Auto) 1.1 H Eos # (Auto) Seg Neutrophils % 74.0 H Seg Neuts % (Manual) Baso # (Auto) Lymphocytes % (Manual) Monocytes % (Manual) Eosinophils % (Manual) Basophils % (Manual) Seg Neutrophils # 8.6 H Seg Neutrophils # Man Lymphocytes # (Manual) Monocytes # (Manual) Eosinophils # (Manual) Nucleated RBC % Basophils # (Manual) PT INR APTT Heparin Anti-Xa Level ABG pH POC ABG pO2 ABG pO2 ABG HCO3 ABG O2 Saturation ABG Base Excess POC ABG pCO2 ABG Hemoglobin ABG Oxyhemoglobin ABG Chloride ABG Glucose Oxyhemoglobin Sodium 151 H Potassium Chloride Carbon Dioxide 34 H BUN Creatinine 0.7 L Glucose POC Glucose 112 H Lactic Acid Calcium Phosphorus Magnesium AST ALT 59 H Lactate Dehydrogenase Total Bilirubin Direct Bilirubin CK-MB (CK-2) C-Reactive Protein NT-Pro-B Natriuret Pep Total Protein 5.8 L Albumin 2.6 L Arterial Blood Glucose Urine WBC (Auto) Urine Creatinine 01/05/20 01/06/20 01/06/20 16:04 00:23 04:44 WBC RBC 3.36 L Hgb 8.9 L Hct 28.7 L MCHC 31 L RDW 16.9 H MCV MCH 26 L Lymph % (Auto) Liberty % (Auto) 9.4 H Liberty # Eos # Lymph # (Auto) Liberty # (Auto) Eos # (Auto) Seg Neutrophils % Seg Neuts % (Manual) Baso # (Auto) Lymphocytes % (Manual) Monocytes % (Manual) Eosinophils % (Manual) Basophils % (Manual) Seg Neutrophils # Seg Neutrophils # Man Lymphocytes # (Manual) Monocytes # (Manual) Eosinophils # (Manual) Nucleated RBC % Basophils # (Manual) PT INR APTT Heparin Anti-Xa Level ABG pH POC ABG pO2 ABG pO2 ABG HCO3 ABG O2 Saturation ABG Base Excess POC ABG pCO2 ABG Hemoglobin ABG Oxyhemoglobin ABG Chloride ABG Glucose Oxyhemoglobin Sodium 151 H Potassium 3.2 L Chloride Carbon Dioxide 34 H BUN Creatinine 0.6 L Glucose POC Glucose 107 H Lactic Acid Calcium Phosphorus Magnesium AST ALT Lactate Dehydrogenase Total Bilirubin Direct Bilirubin CK-MB (CK-2) C-Reactive Protein NT-Pro-B Natriuret Pep Total Protein Albumin Arterial Blood Glucose Urine WBC (Auto) Urine Creatinine 01/06/20 01/06/20 01/06/20 04:44 05:33 12:04 WBC RBC Hgb Hct MCHC RDW MCV MCH Lymph % (Auto) [place] % (Auto) [place] # Eos # Lymph # (Auto) [place] # (Auto) Eos # (Auto) Seg Neutrophils % Seg Neuts % (Manual) Baso # (Auto) Lymphocytes % (Manual) Monocytes % (Manual) Eosinophils % (Manual) Basophils % (Manual) Seg Neutrophils # Seg Neutrophils # Man Lymphocytes # (Manual) Monocytes # (Manual) Eosinophils # (Manual) Nucleated RBC % Basophils # (Manual) PT INR APTT Heparin Anti-Xa Level ABG pH POC ABG pO2 ABG pO2 ABG HCO3 ABG O2 Saturation ABG Base Excess POC ABG pCO2 ABG Hemoglobin ABG Oxyhemoglobin ABG Chloride ABG Glucose Oxyhemoglobin Sodium 151 H Potassium 3.4 L Chloride Carbon Dioxide 33 H BUN Creatinine 0.6 L Glucose 118 H POC Glucose 118 H 123 H Lactic Acid Calcium Phosphorus Magnesium AST ALT Lactate Dehydrogenase Total Bilirubin Direct Bilirubin CK-MB (CK-2) C-Reactive Protein NT-Pro-B Natriuret Pep Total Protein 6.2 L Albumin 2.6 L Arterial Blood Glucose Urine WBC (Auto) Urine Creatinine 01/06/20 01/07/20 01/07/20 17:54 00:06 04:10 WBC RBC 3.42 L Hgb 8.9 L Hct 29.0 L MCHC 31 L RDW 17.1 H MCV MCH 26 L Lymph % (Auto) [place] % (Auto) 8.4 H [place] # Eos # Lymph # (Auto) [place] # (Auto) Eos # (Auto) Seg Neutrophils % Seg Neuts % (Manual) Baso # (Auto) Lymphocytes % (Manual) Monocytes % (Manual) Eosinophils % (Manual) Basophils % (Manual) Seg Neutrophils # Seg Neutrophils # Man Lymphocytes # (Manual) Monocytes # (Manual) Eosinophils # (Manual) Nucleated RBC % Basophils # (Manual) PT INR APTT Heparin Anti-Xa Level ABG pH POC ABG pO2 ABG pO2 ABG HCO3 ABG O2 Saturation ABG Base Excess POC ABG pCO2 ABG Hemoglobin ABG Oxyhemoglobin ABG Chloride ABG Glucose Oxyhemoglobin Sodium Potassium Chloride Carbon Dioxide BUN Creatinine Glucose POC Glucose 112 H 126 H Lactic Acid Calcium Phosphorus Magnesium AST ALT Lactate Dehydrogenase Total Bilirubin Direct Bilirubin CK-MB (CK-2) C-Reactive Protein NT-Pro-B Natriuret Pep Total Protein Albumin Arterial Blood Glucose Urine WBC (Auto) Urine Creatinine 01/07/20 01/07/20 01/07/20 04:10 05:59 12:27 WBC RBC Hgb Hct MCHC RDW MCV MCH Lymph % (Auto) [place] % (Auto) [place] # Eos # Lymph # (Auto) [place] # (Auto) Eos # (Auto) Seg Neutrophils % Seg Neuts % (Manual) Baso # (Auto) Lymphocytes % (Manual) Monocytes % (Manual) Eosinophils % (Manual) Basophils % (Manual) Seg Neutrophils # Seg Neutrophils # Man Lymphocytes # (Manual) Monocytes # (Manual) Eosinophils # (Manual) Nucleated RBC % Basophils # (Manual) PT INR APTT Heparin Anti-Xa Level ABG pH POC ABG pO2 ABG pO2 ABG HCO3 ABG O2 Saturation ABG Base Excess POC ABG pCO2 ABG Hemoglobin ABG Oxyhemoglobin ABG Chloride ABG Glucose Oxyhemoglobin Sodium 153 H Potassium 3.5 L Chloride Carbon Dioxide 34 H BUN Creatinine 0.6 L Glucose 121 H POC Glucose 121 H 126 H Lactic Acid Calcium Phosphorus Magnesium AST ALT Lactate Dehydrogenase Total Bilirubin Direct Bilirubin CK-MB (CK-2) C-Reactive Protein NT-Pro-B Natriuret Pep Total Protein 5.9 L Albumin 2.4 L Arterial Blood Glucose Urine WBC (Auto) Urine Creatinine 01/07/20 01/08/20 01/08/20 18:12 00:03 05:41 WBC RBC Hgb Hct MCHC RDW MCV MCH Lymph % (Auto) [place] % (Auto) [place] # Eos # Lymph # (Auto) [place] # (Auto) Eos # (Auto) Seg Neutrophils % Seg Neuts % (Manual) Baso # (Auto) Lymphocytes % (Manual) Monocytes % (Manual) Eosinophils % (Manual) Basophils % (Manual) Seg Neutrophils # Seg Neutrophils # Man Lymphocytes # (Manual) Monocytes # (Manual) Eosinophils # (Manual) Nucleated RBC % Basophils # (Manual) PT INR APTT Heparin Anti-Xa Level ABG pH POC ABG pO2 ABG pO2 ABG HCO3 ABG O2 Saturation ABG Base Excess POC ABG pCO2 ABG Hemoglobin ABG Oxyhemoglobin ABG Chloride ABG Glucose Oxyhemoglobin Sodium Potassium Chloride Carbon Dioxide BUN Creatinine Glucose POC Glucose 124 H 130 H 138 H Lactic Acid Calcium Phosphorus Magnesium AST ALT Lactate Dehydrogenase Total Bilirubin Direct Bilirubin CK-MB (CK-2) C-Reactive Protein NT-Pro-B Natriuret Pep Total Protein Albumin Arterial Blood Glucose Urine WBC (Auto) Urine Creatinine 01/08/20 01/08/20 01/08/20 09:28 11:42 18:21 WBC RBC Hgb Hct MCHC RDW MCV MCH Lymph % (Auto) [place] % (Auto) [place] # Eos # Lymph # (Auto) [place] # (Auto) Eos # (Auto) Seg Neutrophils % Seg Neuts % (Manual) Baso # (Auto) Lymphocytes % (Manual) Monocytes % (Manual) Eosinophils % (Manual) Basophils % (Manual) Seg Neutrophils # Seg Neutrophils # Man Lymphocytes # (Manual) Monocytes # (Manual) Eosinophils # (Manual) Nucleated RBC % Basophils # (Manual) PT INR APTT Heparin Anti-Xa Level ABG pH POC ABG pO2 ABG pO2 ABG HCO3 ABG O2 Saturation ABG Base Excess POC ABG pCO2 ABG Hemoglobin ABG Oxyhemoglobin ABG Chloride ABG Glucose Oxyhemoglobin Sodium Potassium Chloride Carbon Dioxide BUN Creatinine Glucose POC Glucose 181 H 150 H 129 H Lactic Acid Calcium Phosphorus Magnesium AST ALT Lactate Dehydrogenase Total Bilirubin Direct Bilirubin CK-MB (CK-2) C-Reactive Protein NT-Pro-B Natriuret Pep Total Protein Albumin Arterial Blood Glucose Urine WBC (Auto) Urine Creatinine 01/08/20 01/08/20 01/09/20 19:25 23:55 04:11 WBC RBC 3.43 L Hgb 8.9 L Hct 28.7 L MCHC 31 L RDW 17.6 H MCV MCH 26 L Lymph % (Auto) [place] % (Auto) 8.6 H [place] # Eos # Lymph # (Auto) [place] # (Auto) Eos # (Auto) Seg Neutrophils % Seg Neuts % (Manual) Baso # (Auto) Lymphocytes % (Manual) Monocytes % (Manual) Eosinophils % (Manual) Basophils % (Manual) Seg Neutrophils # Seg Neutrophils # Man Lymphocytes # (Manual) Monocytes # (Manual) Eosinophils # (Manual) Nucleated RBC % Basophils # (Manual) PT INR APTT Heparin Anti-Xa Level ABG pH POC ABG pO2 ABG pO2 ABG HCO3 ABG O2 Saturation ABG Base Excess POC ABG pCO2 ABG Hemoglobin ABG Oxyhemoglobin ABG Chloride ABG Glucose Oxyhemoglobin Sodium Potassium Chloride Carbon Dioxide BUN Creatinine 0.7 L Glucose 117 H POC Glucose 132 H Lactic Acid Calcium Phosphorus Magnesium AST ALT Lactate Dehydrogenase Total Bilirubin Direct Bilirubin CK-MB (CK-2) C-Reactive Protein NT-Pro-B Natriuret Pep Total Protein Albumin Arterial Blood Glucose Urine WBC (Auto) Urine Creatinine 01/09/20 01/09/20 01/09/20 04:11 05:38 22:58 WBC RBC Hgb Hct MCHC RDW MCV MCH Lymph % (Auto) [place] % (Auto) [place] # Eos # Lymph # (Auto) [place] # (Auto) Eos # (Auto) Seg Neutrophils % Seg Neuts % (Manual) Baso # (Auto) Lymphocytes % (Manual) Monocytes % (Manual) Eosinophils % (Manual) Basophils % (Manual) Seg Neutrophils # Seg Neutrophils # Man Lymphocytes # (Manual) Monocytes # (Manual) Eosinophils # (Manual) Nucleated RBC % Basophils # (Manual) PT INR APTT Heparin Anti-Xa Level ABG pH POC ABG pO2 ABG pO2 ABG HCO3 ABG O2 Saturation ABG Base Excess POC ABG pCO2 ABG Hemoglobin ABG Oxyhemoglobin ABG Chloride ABG Glucose Oxyhemoglobin Sodium 147 H Potassium 3.3 L D Chloride Carbon Dioxide 32 H BUN Creatinine 0.6 L Glucose 106 H POC Glucose 107 H 113 H Lactic Acid Calcium Phosphorus Magnesium AST ALT Lactate Dehydrogenase Total Bilirubin Direct Bilirubin CK-MB (CK-2) C-Reactive Protein NT-Pro-B Natriuret Pep Total Protein Albumin Arterial Blood Glucose Urine WBC (Auto) Urine Creatinine 01/10/20 01/10/20 01/10/20 04:05 11:36 17:54 WBC RBC Hgb Hct MCHC RDW MCV MCH Lymph % (Auto) [place] % (Auto) [place] # Eos # Lymph # (Auto) [place] # (Auto) Eos # (Auto) Seg Neutrophils % Seg Neuts % (Manual) Baso # (Auto) Lymphocytes % (Manual) Monocytes % (Manual) Eosinophils % (Manual) Basophils % (Manual) Seg Neutrophils # Seg Neutrophils # Man Lymphocytes # (Manual) Monocytes # (Manual) Eosinophils # (Manual) Nucleated RBC % Basophils # (Manual) PT INR APTT Heparin Anti-Xa Level ABG pH POC ABG pO2 ABG pO2 ABG HCO3 ABG O2 Saturation ABG Base Excess POC ABG pCO2 ABG Hemoglobin ABG Oxyhemoglobin ABG Chloride ABG Glucose Oxyhemoglobin Sodium Potassium Chloride Carbon Dioxide BUN Creatinine 0.7 L Glucose 110 H POC Glucose 129 H 117 H Lactic Acid Calcium Phosphorus Magnesium AST ALT Lactate Dehydrogenase Total Bilirubin Direct Bilirubin CK-MB (CK-2) C-Reactive Protein NT-Pro-B Natriuret Pep Total Protein Albumin Arterial Blood Glucose Urine WBC (Auto) Urine Creatinine 01/10/20 01/11/20 01/11/20 23:52 03:19 12:09 WBC RBC Hgb Hct MCHC RDW MCV MCH Lymph % (Auto) [place] % (Auto) [place] # Eos # Lymph # (Auto) [place] # (Auto) Eos # (Auto) Seg Neutrophils % Seg Neuts % (Manual) Baso # (Auto) Lymphocytes % (Manual) Monocytes % (Manual) Eosinophils % (Manual) Basophils % (Manual) Seg Neutrophils # Seg Neutrophils # Man Lymphocytes # (Manual) Monocytes # (Manual) Eosinophils # (Manual) Nucleated RBC % Basophils # (Manual) PT INR APTT Heparin Anti-Xa Level ABG pH POC ABG pO2 ABG pO2 ABG HCO3 ABG O2 Saturation ABG Base Excess POC ABG pCO2 ABG Hemoglobin ABG Oxyhemoglobin ABG Chloride ABG Glucose Oxyhemoglobin Sodium Potassium Chloride Carbon Dioxide BUN Creatinine Glucose POC Glucose 117 H 136 H 115 H Lactic Acid Calcium Phosphorus Magnesium AST ALT Lactate Dehydrogenase Total Bilirubin Direct Bilirubin CK-MB (CK-2) C-Reactive Protein NT-Pro-B Natriuret Pep Total Protein Albumin Arterial Blood Glucose Urine WBC (Auto) Urine Creatinine 01/11/20 01/11/20 01/12/20 18:27 23:28 00:23 WBC RBC Hgb 9.8 L Hct 31.6 L MCHC 31 L RDW 17.8 H MCV 83 L MCH 26 L Lymph % (Auto) [place] % (Auto) 8.0 H [place] # Eos # Lymph # (Auto) [place] # (Auto) Eos # (Auto) Seg Neutrophils % Seg Neuts % (Manual) Baso # (Auto) Lymphocytes % (Manual) Monocytes % (Manual) Eosinophils % (Manual) Basophils % (Manual) Seg Neutrophils # Seg Neutrophils # Man Lymphocytes # (Manual) Monocytes # (Manual) Eosinophils # (Manual) Nucleated RBC % Basophils # (Manual) PT INR APTT Heparin Anti-Xa Level ABG pH POC ABG pO2 ABG pO2 ABG HCO3 ABG O2 Saturation ABG Base Excess POC ABG pCO2 ABG Hemoglobin ABG Oxyhemoglobin ABG Chloride ABG Glucose Oxyhemoglobin Sodium Potassium Chloride Carbon Dioxide BUN Creatinine Glucose POC Glucose 118 H 122 H Lactic Acid Calcium Phosphorus Magnesium AST ALT Lactate Dehydrogenase Total Bilirubin Direct Bilirubin CK-MB (CK-2) C-Reactive Protein NT-Pro-B Natriuret Pep Total Protein Albumin Arterial Blood Glucose Urine WBC (Auto) Urine Creatinine 01/12/20 01/12/20 01/12/20 00:23 04:18 04:18 WBC RBC Hgb 9.6 L Hct 30.9 L MCHC 31 L RDW 17.3 H MCV 81 L MCH 25 L Lymph % (Auto) [place] % (Auto) [place] # Eos # Lymph # (Auto) [place] # (Auto) Eos # (Auto) Seg Neutrophils % Seg Neuts % (Manual) Baso # (Auto) Lymphocytes % (Manual) Monocytes % (Manual) Eosinophils % (Manual) Basophils % (Manual) Seg Neutrophils # Seg Neutrophils # Man Lymphocytes # (Manual) Monocytes # (Manual) Eosinophils # (Manual) Nucleated RBC % Basophils # (Manual) PT INR APTT Heparin Anti-Xa Level ABG pH POC ABG pO2 ABG pO2 ABG HCO3 ABG O2 Saturation ABG Base Excess POC ABG pCO2 ABG Hemoglobin ABG Oxyhemoglobin ABG Chloride ABG Glucose Oxyhemoglobin Sodium Potassium Chloride Carbon Dioxide BUN Creatinine 0.7 L 0.7 L Glucose 111 H 108 H POC Glucose Lactic Acid Calcium Phosphorus Magnesium AST ALT Lactate Dehydrogenase Total Bilirubin Direct Bilirubin CK-MB (CK-2) C-Reactive Protein NT-Pro-B Natriuret Pep Total Protein Albumin 2.6 L Arterial Blood Glucose Urine WBC (Auto) Urine Creatinine 01/12/20 01/12/20 01/12/20 06:03 12:27 13:58 WBC RBC Hgb Hct MCHC RDW MCV MCH Lymph % (Auto) [place] % (Auto) [place] # Eos # Lymph # (Auto) [place] # (Auto) Eos # (Auto) Seg Neutrophils % Seg Neuts % (Manual) Baso # (Auto) Lymphocytes % (Manual) Monocytes % (Manual) Eosinophils % (Manual) Basophils % (Manual) Seg Neutrophils # Seg Neutrophils # Man Lymphocytes # (Manual) Monocytes # (Manual) Eosinophils # (Manual) Nucleated RBC % Basophils # (Manual) PT INR APTT Heparin Anti-Xa Level ABG pH 7.453 H POC ABG pO2 76.6 L ABG pO2 ABG HCO3 ABG O2 Saturation ABG Base Excess POC ABG pCO2 ABG Hemoglobin 10.3 L ABG Oxyhemoglobin ABG Chloride ABG Glucose 99 H Oxyhemoglobin Sodium Potassium Chloride Carbon Dioxide BUN Creatinine Glucose POC Glucose 128 H 121 H Lactic Acid Calcium Phosphorus Magnesium AST ALT Lactate Dehydrogenase Total Bilirubin Direct Bilirubin CK-MB (CK-2) C-Reactive Protein NT-Pro-B Natriuret Pep Total Protein Albumin Arterial Blood Glucose 99 H Urine WBC (Auto) Urine Creatinine 01/12/20 01/13/20 01/13/20 18:24 12:01 17:46 WBC RBC Hgb Hct MCHC RDW MCV MCH Lymph % (Auto) [place] % (Auto) [place] # Eos # Lymph # (Auto) [place] # (Auto) Eos # (Auto) Seg Neutrophils % Seg Neuts % (Manual) Baso # (Auto) Lymphocytes % (Manual) Monocytes % (Manual) Eosinophils % (Manual) Basophils % (Manual) Seg Neutrophils # Seg Neutrophils # Man Lymphocytes # (Manual) Monocytes # (Manual) Eosinophils # (Manual) Nucleated RBC % Basophils # (Manual) PT INR APTT Heparin Anti-Xa Level ABG pH POC ABG pO2 ABG pO2 ABG HCO3 ABG O2 Saturation ABG Base Excess POC ABG pCO2 ABG Hemoglobin ABG Oxyhemoglobin ABG Chloride ABG Glucose Oxyhemoglobin Sodium Potassium Chloride Carbon Dioxide BUN Creatinine Glucose POC Glucose 119 H 107 H 124 H Lactic Acid Calcium Phosphorus Magnesium AST ALT Lactate Dehydrogenase Total Bilirubin Direct Bilirubin CK-MB (CK-2) C-Reactive Protein NT-Pro-B Natriuret Pep Total Protein Albumin Arterial Blood Glucose Urine WBC (Auto) Urine Creatinine 01/13/20 01/14/20 01/14/20 20:40 00:10 05:33 WBC RBC Hgb Hct MCHC RDW MCV MCH Lymph % (Auto) [place] % (Auto) [place] # Eos # Lymph # (Auto) [place] # (Auto) Eos # (Auto) Seg Neutrophils % Seg Neuts % (Manual) Baso # (Auto) Lymphocytes % (Manual) Monocytes % (Manual) Eosinophils % (Manual) Basophils % (Manual) Seg Neutrophils # Seg Neutrophils # Man Lymphocytes # (Manual) Monocytes # (Manual) Eosinophils # (Manual) Nucleated RBC % Basophils # (Manual) PT INR APTT Heparin Anti-Xa Level ABG pH POC ABG pO2 ABG pO2 65.3 L ABG HCO3 31.8 H ABG O2 Saturation 93.5 L ABG Base Excess 6.7 H POC ABG pCO2 ABG Hemoglobin 13.3 L ABG Oxyhemoglobin ABG Chloride ABG Glucose Oxyhemoglobin 90.9 L Sodium Potassium Chloride Carbon Dioxide BUN Creatinine Glucose POC Glucose 111 H 111 H Lactic Acid Calcium Phosphorus Magnesium AST ALT Lactate Dehydrogenase Total Bilirubin Direct Bilirubin CK-MB (CK-2) C-Reactive Protein NT-Pro-B Natriuret Pep Total Protein Albumin Arterial Blood Glucose Urine WBC (Auto) Urine Creatinine 01/14/20 01/14/20 01/14/20 12:10 16:14 16:14 WBC RBC Hgb 10.6 L Hct 34.2 L MCHC 31 L RDW 18.3 H MCV 83 L MCH 26 L Lymph % (Auto) [place] % (Auto) 7.4 H [place] # Eos # Lymph # (Auto) [place] # (Auto) Eos # (Auto) Seg Neutrophils % 71.9 H Seg Neuts % (Manual) Baso # (Auto) Lymphocytes % (Manual) Monocytes % (Manual) Eosinophils % (Manual) Basophils % (Manual) Seg Neutrophils # Seg Neutrophils # Man Lymphocytes # (Manual) Monocytes # (Manual) Eosinophils # (Manual) Nucleated RBC % Basophils # (Manual) PT INR APTT Heparin Anti-Xa Level ABG pH POC ABG pO2 ABG pO2 ABG HCO3 ABG O2 Saturation ABG Base Excess POC ABG pCO2 ABG Hemoglobin ABG Oxyhemoglobin ABG Chloride ABG Glucose Oxyhemoglobin Sodium Potassium Chloride Carbon Dioxide 31 H BUN Creatinine 0.6 L Glucose 131 H POC Glucose 139 H Lactic Acid Calcium Phosphorus Magnesium AST ALT Lactate Dehydrogenase Total Bilirubin Direct Bilirubin CK-MB (CK-2) C-Reactive Protein NT-Pro-B Natriuret Pep Total Protein Albumin Arterial Blood Glucose Urine WBC (Auto) Urine Creatinine 01/14/20 01/15/2020 18:05 00:52 05:35 WBC RBC Hgb Hct MCHC RDW MCV MCH Lymph % (Auto) [place] % (Auto) [place] # Eos # Lymph # (Auto) [place] # (Auto) Eos # (Auto) Seg Neutrophils % Seg Neuts % (Manual) Baso # (Auto) Lymphocytes % (Manual) Monocytes % (Manual) Eosinophils % (Manual) Basophils % (Manual) Seg Neutrophils # Seg Neutrophils # Man Lymphocytes # (Manual) Monocytes # (Manual) Eosinophils # (Manual) Nucleated RBC % Basophils # (Manual) PT INR APTT Heparin Anti-Xa Level ABG pH POC ABG pO2 ABG pO2 ABG HCO3 ABG O2 Saturation ABG Base Excess POC ABG pCO2 ABG Hemoglobin ABG Oxyhemoglobin ABG Chloride ABG Glucose Oxyhemoglobin Sodium Potassium Chloride Carbon Dioxide BUN Creatinine Glucose POC Glucose 147 H 140 H 159 H Lactic Acid Calcium Phosphorus Magnesium AST ALT Lactate Dehydrogenase Total Bilirubin Direct Bilirubin CK-MB (CK-2) C-Reactive Protein NT-Pro-B Natriuret Pep Total Protein Albumin Arterial Blood Glucose Urine WBC (Auto) Urine Creatinine 01/15/20 01/15/20 01/16/20 12:52 17:43 00:32 WBC RBC Hgb Hct MCHC RDW MCV MCH Lymph % (Auto) [place] % (Auto) [place] # Eos # Lymph # (Auto) [place] # (Auto) Eos # (Auto) Seg Neutrophils % Seg Neuts % (Manual) Baso # (Auto) Lymphocytes % (Manual) Monocytes % (Manual) Eosinophils % (Manual) Basophils % (Manual) Seg Neutrophils # Seg Neutrophils # Man Lymphocytes # (Manual) Monocytes # (Manual) Eosinophils # (Manual) Nucleated RBC % Basophils # (Manual) PT INR APTT Heparin Anti-Xa Level ABG pH POC ABG pO2 ABG pO2 ABG HCO3 ABG O2 Saturation ABG Base Excess POC ABG pCO2 ABG Hemoglobin ABG Oxyhemoglobin ABG Chloride ABG Glucose Oxyhemoglobin Sodium Potassium Chloride Carbon Dioxide BUN Creatinine Glucose POC Glucose 164 H 167 H 153 H Lactic Acid Calcium Phosphorus Magnesium AST ALT Lactate Dehydrogenase Total Bilirubin Direct Bilirubin CK-MB (CK-2) C-Reactive Protein NT-Pro-B Natriuret Pep Total Protein Albumin Arterial Blood Glucose Urine WBC (Auto) Urine Creatinine 01/16/20 01/16/20 01/17/20 05:46 11:48 06:38 WBC RBC Hgb Hct MCHC RDW MCV MCH Lymph % (Auto) [place] % (Auto) [place] # Eos # Lymph # (Auto) [place] # (Auto) Eos # (Auto) Seg Neutrophils % Seg Neuts % (Manual) Baso # (Auto) Lymphocytes % (Manual) Monocytes % (Manual) Eosinophils % (Manual) Basophils % (Manual) Seg Neutrophils # Seg Neutrophils # Man Lymphocytes # (Manual) Monocytes # (Manual) Eosinophils # (Manual) Nucleated RBC % Basophils # (Manual) PT INR APTT Heparin Anti-Xa Level ABG pH POC ABG pO2 ABG pO2 ABG HCO3 ABG O2 Saturation ABG Base Excess POC ABG pCO2 ABG Hemoglobin ABG Oxyhemoglobin ABG Chloride ABG Glucose Oxyhemoglobin Sodium Potassium Chloride Carbon Dioxide BUN Creatinine Glucose POC Glucose 163 H 155 H 116 H Lactic Acid Calcium Phosphorus Magnesium AST ALT Lactate Dehydrogenase Total Bilirubin Direct Bilirubin CK-MB (CK-2) C-Reactive Protein NT-Pro-B Natriuret Pep Total Protein Albumin Arterial Blood Glucose Urine WBC (Auto) Urine Creatinine 01/17/20 01/17/20 01/18/20 11:36 17:43 00:12 WBC RBC Hgb Hct MCHC RDW MCV MCH Lymph % (Auto) [place] % (Auto) [place] # Eos # Lymph # (Auto) [place] # (Auto) Eos # (Auto) Seg Neutrophils % Seg Neuts % (Manual) Baso # (Auto) Lymphocytes % (Manual) Monocytes % (Manual) Eosinophils % (Manual) Basophils % (Manual) Seg Neutrophils # Seg Neutrophils # Man Lymphocytes # (Manual) Monocytes # (Manual) Eosinophils # (Manual) Nucleated RBC % Basophils # (Manual) PT INR APTT Heparin Anti-Xa Level ABG pH POC ABG pO2 ABG pO2 ABG HCO3 ABG O2 Saturation ABG Base Excess POC ABG pCO2 ABG Hemoglobin ABG Oxyhemoglobin ABG Chloride ABG Glucose Oxyhemoglobin Sodium Potassium Chloride Carbon Dioxide BUN Creatinine Glucose POC Glucose 110 H 134 H 108 H Lactic Acid Calcium Phosphorus Magnesium AST ALT Lactate Dehydrogenase Total Bilirubin Direct Bilirubin CK-MB (CK-2) C-Reactive Protein NT-Pro-B Natriuret Pep Total Protein Albumin Arterial Blood Glucose Urine WBC (Auto) Urine Creatinine 01/18/20 01/18/20 01/18/20 05:37 06:46 06:46 WBC RBC Hgb 10.1 L Hct 32.2 L MCHC 31 L RDW 18.1 H MCV 81 L MCH 25 L Lymph % (Auto) [place] % (Auto) [place] # Eos # Lymph # (Auto) [place] # (Auto) Eos # (Auto) Seg Neutrophils % 71.9 H Seg Neuts % (Manual) Baso # (Auto) Lymphocytes % (Manual) Monocytes % (Manual) Eosinophils % (Manual) Basophils % (Manual) Seg Neutrophils # Seg Neutrophils # Man Lymphocytes # (Manual) Monocytes # (Manual) Eosinophils # (Manual) Nucleated RBC % Basophils # (Manual) PT INR APTT Heparin Anti-Xa Level ABG pH POC ABG pO2 ABG pO2 ABG HCO3 ABG O2 Saturation ABG Base Excess POC ABG pCO2 ABG Hemoglobin ABG Oxyhemoglobin ABG Chloride ABG Glucose Oxyhemoglobin Sodium Potassium Chloride Carbon Dioxide BUN Creatinine 0.7 L Glucose 155 H POC Glucose 168 H Lactic Acid Calcium Phosphorus Magnesium AST ALT Lactate Dehydrogenase Total Bilirubin Direct Bilirubin CK-MB (CK-2) C-Reactive Protein NT-Pro-B Natriuret Pep Total Protein Albumin Arterial Blood Glucose Urine WBC (Auto) Urine Creatinine 01/18/20 01/18/20 01/18/20 12:05 17:14 23:28 WBC RBC Hgb Hct MCHC RDW MCV MCH Lymph % (Auto) [place] % (Auto) [place] # Eos # Lymph # (Auto) [place] # (Auto) Eos # (Auto) Seg Neutrophils % Seg Neuts % (Manual) Baso # (Auto) Lymphocytes % (Manual) Monocytes % (Manual) Eosinophils % (Manual) Basophils % (Manual) Seg Neutrophils # Seg Neutrophils # Man Lymphocytes # (Manual) Monocytes # (Manual) Eosinophils # (Manual) Nucleated RBC % Basophils # (Manual) PT INR APTT Heparin Anti-Xa Level ABG pH POC ABG pO2 ABG pO2 ABG HCO3 ABG O2 Saturation ABG Base Excess POC ABG pCO2 ABG Hemoglobin ABG Oxyhemoglobin ABG Chloride ABG Glucose Oxyhemoglobin Sodium Potassium Chloride Carbon Dioxide BUN Creatinine Glucose POC Glucose 128 H 126 H 128 H Lactic Acid Calcium Phosphorus Magnesium AST ALT Lactate Dehydrogenase Total Bilirubin Direct Bilirubin CK-MB (CK-2) C-Reactive Protein NT-Pro-B Natriuret Pep Total Protein Albumin Arterial Blood Glucose Urine WBC (Auto) Urine Creatinine 01/19/20 01/19/20 01/19/20 05:39 12:33 17:36 WBC RBC Hgb Hct MCHC RDW MCV MCH Lymph % (Auto) [place] % (Auto) [place] # Eos # Lymph # (Auto) [place] # (Auto) Eos # (Auto) Seg Neutrophils % Seg Neuts % (Manual) Baso # (Auto) Lymphocytes % (Manual) Monocytes % (Manual) Eosinophils % (Manual) Basophils % (Manual) Seg Neutrophils # Seg Neutrophils # Man Lymphocytes # (Manual) Monocytes # (Manual) Eosinophils # (Manual) Nucleated RBC % Basophils # (Manual) PT INR APTT Heparin Anti-Xa Level ABG pH POC ABG pO2 ABG pO2 ABG HCO3 ABG O2 Saturation ABG Base Excess POC ABG pCO2 ABG Hemoglobin ABG Oxyhemoglobin ABG Chloride ABG Glucose Oxyhemoglobin Sodium Potassium Chloride Carbon Dioxide BUN Creatinine Glucose POC Glucose 164 H 171 H 152 H Lactic Acid Calcium Phosphorus Magnesium AST ALT Lactate Dehydrogenase Total Bilirubin Direct Bilirubin CK-MB (CK-2) C-Reactive Protein NT-Pro-B Natriuret Pep Total Protein Albumin Arterial Blood Glucose Urine WBC (Auto) Urine Creatinine 01/20/20 01/20/20 01/20/20 00:12 05:20 05:35 WBC RBC Hgb 9.2 L Hct 29.4 L MCHC 31 L RDW 17.9 H MCV 81 L MCH 25 L Lymph % (Auto) [place] % (Auto) [place] # Eos # Lymph # (Auto) [place] # (Auto) Eos # (Auto) Seg Neutrophils % Seg Neuts % (Manual) Baso # (Auto) Lymphocytes % (Manual) Monocytes % (Manual) Eosinophils % (Manual) Basophils % (Manual) Seg Neutrophils # Seg Neutrophils # Man Lymphocytes # (Manual) Monocytes # (Manual) Eosinophils # (Manual) Nucleated RBC % Basophils # (Manual) PT INR APTT Heparin Anti-Xa Level ABG pH POC ABG pO2 ABG pO2 ABG HCO3 ABG O2 Saturation ABG Base Excess POC ABG pCO2 ABG Hemoglobin ABG Oxyhemoglobin ABG Chloride ABG Glucose Oxyhemoglobin Sodium Potassium Chloride Carbon Dioxide BUN Creatinine Glucose POC Glucose 120 H 136 H Lactic Acid Calcium Phosphorus Magnesium AST ALT Lactate Dehydrogenase Total Bilirubin Direct Bilirubin CK-MB (CK-2) C-Reactive Protein NT-Pro-B Natriuret Pep Total Protein Albumin Arterial Blood Glucose Urine WBC (Auto) Urine Creatinine 01/20/20 01/20/20 01/20/20 05:40 11:58 14:55 WBC RBC Hgb 9.0 L Hct 28.3 L MCHC RDW MCV MCH Lymph % (Auto) Liberty % (Auto) Liberty # Eos # Lymph # (Auto) Liberty # (Auto) Eos # (Auto) Seg Neutrophils % Seg Neuts % (Manual) Baso # (Auto) Lymphocytes % (Manual) Monocytes % (Manual) Eosinophils % (Manual) Basophils % (Manual) Seg Neutrophils # Seg Neutrophils # Man Lymphocytes # (Manual) Monocytes # (Manual) Eosinophils # (Manual) Nucleated RBC % Basophils # (Manual) PT INR APTT Heparin Anti-Xa Level ABG pH POC ABG pO2 ABG pO2 ABG HCO3 ABG O2 Saturation ABG Base Excess POC ABG pCO2 ABG Hemoglobin ABG Oxyhemoglobin ABG Chloride ABG Glucose Oxyhemoglobin Sodium Potassium Chloride Carbon Dioxide 32 H BUN 22 H Creatinine 0.7 L Glucose 128 H POC Glucose 152 H Lactic Acid Calcium Phosphorus Magnesium AST ALT Lactate Dehydrogenase Total Bilirubin Direct Bilirubin CK-MB (CK-2) C-Reactive Protein NT-Pro-B Natriuret Pep Total Protein Albumin Arterial Blood Glucose Urine WBC (Auto) Urine Creatinine 01/20/20 01/20/20 01/20/20 14:55 18:14 21:35 WBC RBC Hgb Hct MCHC RDW MCV MCH Lymph % (Auto) [place] % (Auto) [place] # Eos # Lymph # (Auto) [place] # (Auto) Eos # (Auto) Seg Neutrophils % Seg Neuts % (Manual) Baso # (Auto) Lymphocytes % (Manual) Monocytes % (Manual) Eosinophils % (Manual) Basophils % (Manual) Seg Neutrophils # Seg Neutrophils # Man Lymphocytes # (Manual) Monocytes # (Manual) Eosinophils # (Manual) Nucleated RBC % Basophils # (Manual) PT 20.4 H INR 1.72 H APTT 40.6 H Heparin Anti-Xa Level > 2.00 H ABG pH POC ABG pO2 ABG pO2 ABG HCO3 ABG O2 Saturation ABG Base Excess POC ABG pCO2 ABG Hemoglobin ABG Oxyhemoglobin ABG Chloride ABG Glucose Oxyhemoglobin Sodium Potassium Chloride Carbon Dioxide BUN Creatinine Glucose POC Glucose 150 H Lactic Acid Calcium Phosphorus Magnesium AST ALT Lactate Dehydrogenase Total Bilirubin Direct Bilirubin CK-MB (CK-2) C-Reactive Protein NT-Pro-B Natriuret Pep Total Protein Albumin Arterial Blood Glucose Urine WBC (Auto) Urine Creatinine 01/21/20 01/21/20 01/21/20 00:30 05:47 05:59 WBC RBC Hgb Hct MCHC RDW MCV MCH Lymph % (Auto) [place] % (Auto) [place] # Eos # Lymph # (Auto) [place] # (Auto) Eos # (Auto) Seg Neutrophils % Seg Neuts % (Manual) Baso # (Auto) Lymphocytes % (Manual) Monocytes % (Manual) Eosinophils % (Manual) Basophils % (Manual) Seg Neutrophils # Seg Neutrophils # Man Lymphocytes # (Manual) Monocytes # (Manual) Eosinophils # (Manual) Nucleated RBC % Basophils # (Manual) PT INR APTT Heparin Anti-Xa Level 1.93 H ABG pH POC ABG pO2 ABG pO2 ABG HCO3 ABG O2 Saturation ABG Base Excess POC ABG pCO2 ABG Hemoglobin ABG Oxyhemoglobin ABG Chloride ABG Glucose Oxyhemoglobin Sodium Potassium Chloride Carbon Dioxide BUN Creatinine Glucose POC Glucose 126 H 148 H Lactic Acid Calcium Phosphorus Magnesium AST ALT Lactate Dehydrogenase Total Bilirubin Direct Bilirubin CK-MB (CK-2) C-Reactive Protein NT-Pro-B Natriuret Pep Total Protein Albumin Arterial Blood Glucose Urine WBC (Auto) Urine Creatinine 01/21/20 01/21/20 01/21/20 12:32 18:20 23:54 WBC RBC Hgb Hct MCHC RDW MCV MCH Lymph % (Auto) [place] % (Auto) [place] # Eos # Lymph # (Auto) [place] # (Auto) Eos # (Auto) Seg Neutrophils % Seg Neuts % (Manual) Baso # (Auto) Lymphocytes % (Manual) Monocytes % (Manual) Eosinophils % (Manual) Basophils % (Manual) Seg Neutrophils # Seg Neutrophils # Man Lymphocytes # (Manual) Monocytes # (Manual) Eosinophils # (Manual) Nucleated RBC % Basophils # (Manual) PT INR APTT Heparin Anti-Xa Level 1.28 H ABG pH POC ABG pO2 ABG pO2 ABG HCO3 ABG O2 Saturation ABG Base Excess POC ABG pCO2 ABG Hemoglobin ABG Oxyhemoglobin ABG Chloride ABG Glucose Oxyhemoglobin Sodium Potassium Chloride Carbon Dioxide BUN Creatinine Glucose POC Glucose 112 H 146 H Lactic Acid Calcium Phosphorus Magnesium AST ALT Lactate Dehydrogenase Total Bilirubin Direct Bilirubin CK-MB (CK-2) C-Reactive Protein NT-Pro-B Natriuret Pep Total Protein Albumin Arterial Blood Glucose Urine WBC (Auto) Urine Creatinine 01/22/20 01/22/20 01/22/20 04:45 04:45 05:48 WBC RBC Hgb 9.3 L Hct 29.0 L MCHC RDW MCV MCH Lymph % (Auto) [place] % (Auto) [place] # Eos # Lymph # (Auto) [place] # (Auto) Eos # (Auto) Seg Neutrophils % Seg Neuts % (Manual) Baso # (Auto) Lymphocytes % (Manual) Monocytes % (Manual) Eosinophils % (Manual) Basophils % (Manual) Seg Neutrophils # Seg Neutrophils # Man Lymphocytes # (Manual) Monocytes # (Manual) Eosinophils # (Manual) Nucleated RBC % Basophils # (Manual) PT INR APTT Heparin Anti-Xa Level 1.34 H ABG pH POC ABG pO2 ABG pO2 ABG HCO3 ABG O2 Saturation ABG Base Excess POC ABG pCO2 ABG Hemoglobin ABG Oxyhemoglobin ABG Chloride ABG Glucose Oxyhemoglobin Sodium Potassium Chloride Carbon Dioxide BUN Creatinine Glucose POC Glucose 142 H Lactic Acid Calcium Phosphorus Magnesium AST ALT Lactate Dehydrogenase Total Bilirubin Direct Bilirubin CK-MB (CK-2) C-Reactive Protein NT-Pro-B Natriuret Pep Total Protein Albumin Arterial Blood Glucose Urine WBC (Auto) Urine Creatinine 01/22/20 01/22/20 01/22/20 08:09 08:22 09:58 WBC RBC Hgb Hct MCHC RDW MCV MCH Lymph % (Auto) [place] % (Auto) [place] # Eos # Lymph # (Auto) [place] # (Auto) Eos # (Auto) Seg Neutrophils % Seg Neuts % (Manual) Baso # (Auto) Lymphocytes % (Manual) Monocytes % (Manual) Eosinophils % (Manual) Basophils % (Manual) Seg Neutrophils # Seg Neutrophils # Man Lymphocytes # (Manual) Monocytes # (Manual) Eosinophils # (Manual) Nucleated RBC % Basophils # (Manual) PT 16.9 H INR 1.34 H APTT Heparin Anti-Xa Level ABG pH POC ABG pO2 ABG pO2 ABG HCO3 ABG O2 Saturation ABG Base Excess POC ABG pCO2 ABG Hemoglobin ABG Oxyhemoglobin ABG Chloride ABG Glucose Oxyhemoglobin Sodium Potassium Chloride 97.8 L Carbon Dioxide BUN 29 H Creatinine Glucose 128 H POC Glucose 131 H Lactic Acid Calcium Phosphorus Magnesium AST ALT Lactate Dehydrogenase Total Bilirubin Direct Bilirubin CK-MB (CK-2) C-Reactive Protein NT-Pro-B Natriuret Pep Total Protein Albumin Arterial Blood Glucose Urine WBC (Auto) Urine Creatinine 01/22/20 01/22/20 01/22/20 12:44 16:13 18:18 WBC RBC Hgb Hct MCHC RDW MCV MCH Lymph % (Auto) [place] % (Auto) [place] # Eos # Lymph # (Auto) [place] # (Auto) Eos # (Auto) Seg Neutrophils % Seg Neuts % (Manual) Baso # (Auto) Lymphocytes % (Manual) Monocytes % (Manual) Eosinophils % (Manual) Basophils % (Manual) Seg Neutrophils # Seg Neutrophils # Man Lymphocytes # (Manual) Monocytes # (Manual) Eosinophils # (Manual) Nucleated RBC % Basophils # (Manual) PT INR APTT Heparin Anti-Xa Level ABG pH POC ABG pO2 ABG pO2 ABG HCO3 ABG O2 Saturation ABG Base Excess POC ABG pCO2 ABG Hemoglobin ABG Oxyhemoglobin ABG Chloride ABG Glucose Oxyhemoglobin Sodium Potassium Chloride Carbon Dioxide BUN Creatinine Glucose POC Glucose 156 H 133 H 155 H Lactic Acid Calcium Phosphorus Magnesium AST ALT Lactate Dehydrogenase Total Bilirubin Direct Bilirubin CK-MB (CK-2) C-Reactive Protein NT-Pro-B Natriuret Pep Total Protein Albumin Arterial Blood Glucose Urine WBC (Auto) Urine Creatinine 01/22/20 01/23/20 01/23/20 23:22 05:37 12:59 WBC RBC Hgb Hct MCHC RDW MCV MCH Lymph % (Auto) [place] % (Auto) [place] # Eos # Lymph # (Auto) [place] # (Auto) Eos # (Auto) Seg Neutrophils % Seg Neuts % (Manual) Baso # (Auto) Lymphocytes % (Manual) Monocytes % (Manual) Eosinophils % (Manual) Basophils % (Manual) Seg Neutrophils # Seg Neutrophils # Man Lymphocytes # (Manual) Monocytes # (Manual) Eosinophils # (Manual) Nucleated RBC % Basophils # (Manual) PT INR APTT Heparin Anti-Xa Level ABG pH POC ABG pO2 ABG pO2 ABG HCO3 ABG O2 Saturation ABG Base Excess POC ABG pCO2 ABG Hemoglobin ABG Oxyhemoglobin ABG Chloride ABG Glucose Oxyhemoglobin Sodium Potassium Chloride Carbon Dioxide BUN Creatinine Glucose POC Glucose 148 H 163 H 175 H Lactic Acid Calcium Phosphorus Magnesium AST ALT Lactate Dehydrogenase Total Bilirubin Direct Bilirubin CK-MB (CK-2) C-Reactive Protein NT-Pro-B Natriuret Pep Total Protein Albumin Arterial Blood Glucose Urine WBC (Auto) Urine Creatinine 01/23/20 01/23/20 01/24/20 17:28 23:56 04:30 WBC RBC 3.46 L Hgb 8.8 L Hct 27.8 L MCHC RDW 18.2 H MCV 81 L MCH 25 L Lymph % (Auto) [place] % (Auto) 7.8 H [place] # Eos # Lymph # (Auto) [place] # (Auto) Eos # (Auto) Seg Neutrophils % Seg Neuts % (Manual) Baso # (Auto) Lymphocytes % (Manual) Monocytes % (Manual) Eosinophils % (Manual) Basophils % (Manual) Seg Neutrophils # Seg Neutrophils # Man Lymphocytes # (Manual) Monocytes # (Manual) Eosinophils # (Manual) Nucleated RBC % Basophils # (Manual) PT INR APTT Heparin Anti-Xa Level ABG pH POC ABG pO2 ABG pO2 ABG HCO3 ABG O2 Saturation ABG Base Excess POC ABG pCO2 ABG Hemoglobin ABG Oxyhemoglobin ABG Chloride ABG Glucose Oxyhemoglobin Sodium Potassium Chloride Carbon Dioxide BUN Creatinine Glucose POC Glucose 165 H 177 H Lactic Acid Calcium Phosphorus Magnesium AST ALT Lactate Dehydrogenase Total Bilirubin Direct Bilirubin CK-MB (CK-2) C-Reactive Protein NT-Pro-B Natriuret Pep Total Protein Albumin Arterial Blood Glucose Urine WBC (Auto) Urine Creatinine 01/24/20 01/24/20 01/24/20 04:30 07:18 12:06 WBC RBC Hgb Hct MCHC RDW MCV MCH Lymph % (Auto) [place] % (Auto) [place] # Eos # Lymph # (Auto) [place] # (Auto) Eos # (Auto) Seg Neutrophils % Seg Neuts % (Manual) Baso # (Auto) Lymphocytes % (Manual) Monocytes % (Manual) Eosinophils % (Manual) Basophils % (Manual) Seg Neutrophils # Seg Neutrophils # Man Lymphocytes # (Manual) Monocytes # (Manual) Eosinophils # (Manual) Nucleated RBC % Basophils # (Manual) PT INR APTT Heparin Anti-Xa Level ABG pH POC ABG pO2 ABG pO2 ABG HCO3 ABG O2 Saturation ABG Base Excess POC ABG pCO2 ABG Hemoglobin ABG Oxyhemoglobin ABG Chloride ABG Glucose Oxyhemoglobin Sodium Potassium Chloride 97.9 L Carbon Dioxide BUN 31 H Creatinine Glucose 146 H POC Glucose 151 H 133 H Lactic Acid Calcium Phosphorus Magnesium AST ALT Lactate Dehydrogenase Total Bilirubin Direct Bilirubin CK-MB (CK-2) C-Reactive Protein NT-Pro-B Natriuret Pep Total Protein Albumin Arterial Blood Glucose Urine WBC (Auto) Urine Creatinine 01/24/20 01/25/20 01/25/20 17:36 00:08 04:25 WBC RBC 3.50 L Hgb 8.7 L Hct 27.9 L MCHC 31 L RDW 18.2 H MCV 80 L MCH 25 L Lymph % (Auto) [place] % (Auto) 8.5 H [place] # Eos # Lymph # (Auto) [place] # (Auto) Eos # (Auto) Seg Neutrophils % Seg Neuts % (Manual) Baso # (Auto) Lymphocytes % (Manual) Monocytes % (Manual) Eosinophils % (Manual) Basophils % (Manual) Seg Neutrophils # Seg Neutrophils # Man Lymphocytes # (Manual) Monocytes # (Manual) Eosinophils # (Manual) Nucleated RBC % Basophils # (Manual) PT INR APTT Heparin Anti-Xa Level ABG pH POC ABG pO2 ABG pO2 ABG HCO3 ABG O2 Saturation ABG Base Excess POC ABG pCO2 ABG Hemoglobin ABG Oxyhemoglobin ABG Chloride ABG Glucose Oxyhemoglobin Sodium Potassium Chloride Carbon Dioxide BUN Creatinine Glucose POC Glucose 133 H 129 H Lactic Acid Calcium Phosphorus Magnesium AST ALT Lactate Dehydrogenase Total Bilirubin Direct Bilirubin CK-MB (CK-2) C-Reactive Protein NT-Pro-B Natriuret Pep Total Protein Albumin Arterial Blood Glucose Urine WBC (Auto) Urine Creatinine 01/25/20 01/25/20 01/25/20 04:25 05:38 11:52 WBC RBC Hgb Hct MCHC RDW MCV MCH Lymph % (Auto) [place] % (Auto) [place] # Eos # Lymph # (Auto) [place] # (Auto) Eos # (Auto) Seg Neutrophils % Seg Neuts % (Manual) Baso # (Auto) Lymphocytes % (Manual) Monocytes % (Manual) Eosinophils % (Manual) Basophils % (Manual) Seg Neutrophils # Seg Neutrophils # Man Lymphocytes # (Manual) Monocytes # (Manual) Eosinophils # (Manual) Nucleated RBC % Basophils # (Manual) PT INR APTT Heparin Anti-Xa Level ABG pH POC ABG pO2 ABG pO2 ABG HCO3 ABG O2 Saturation ABG Base Excess POC ABG pCO2 ABG Hemoglobin ABG Oxyhemoglobin ABG Chloride ABG Glucose Oxyhemoglobin Sodium Potassium Chloride Carbon Dioxide BUN 30 H Creatinine Glucose 134 H POC Glucose 129 H 134 H Lactic Acid Calcium Phosphorus Magnesium AST ALT Lactate Dehydrogenase Total Bilirubin Direct Bilirubin CK-MB (CK-2) C-Reactive Protein NT-Pro-B Natriuret Pep Total Protein Albumin Arterial Blood Glucose Urine WBC (Auto) Urine Creatinine 01/25/20 01/25/20 01/26/20 17:13 21:02 00:59 WBC RBC Hgb Hct MCHC RDW MCV MCH Lymph % (Auto) [place] % (Auto) [place] # Eos # Lymph # (Auto) [place] # (Auto) Eos # (Auto) Seg Neutrophils % Seg Neuts % (Manual) Baso # (Auto) Lymphocytes % (Manual) Monocytes % (Manual) Eosinophils % (Manual) Basophils % (Manual) Seg Neutrophils # Seg Neutrophils # Man Lymphocytes # (Manual) Monocytes # (Manual) Eosinophils # (Manual) Nucleated RBC % Basophils # (Manual) PT INR APTT Heparin Anti-Xa Level ABG pH POC ABG pO2 ABG pO2 57.5 L ABG HCO3 31.7 H ABG O2 Saturation 90.3 L ABG Base Excess 6.6 H POC ABG pCO2 ABG Hemoglobin 13.0 L ABG Oxyhemoglobin ABG Chloride ABG Glucose Oxyhemoglobin 87.5 L Sodium Potassium Chloride Carbon Dioxide BUN Creatinine Glucose POC Glucose 124 H 196 H Lactic Acid Calcium Phosphorus Magnesium AST ALT Lactate Dehydrogenase Total Bilirubin Direct Bilirubin CK-MB (CK-2) C-Reactive Protein NT-Pro-B Natriuret Pep Total Protein Albumin Arterial Blood Glucose Urine WBC (Auto) Urine Creatinine 01/26/20 01/26/20 01/26/20 03:20 05:46 12:46 WBC RBC Hgb 9.2 L Hct 29.4 L MCHC RDW MCV MCH Lymph % (Auto) [place] % (Auto) [place] # Eos # Lymph # (Auto) [place] # (Auto) Eos # (Auto) Seg Neutrophils % Seg Neuts % (Manual) Baso # (Auto) Lymphocytes % (Manual) Monocytes % (Manual) Eosinophils % (Manual) Basophils % (Manual) Seg Neutrophils # Seg Neutrophils # Man Lymphocytes # (Manual) Monocytes # (Manual) Eosinophils # (Manual) Nucleated RBC % Basophils # (Manual) PT INR APTT Heparin Anti-Xa Level ABG pH POC ABG pO2 ABG pO2 ABG HCO3 ABG O2 Saturation ABG Base Excess POC ABG pCO2 ABG Hemoglobin ABG Oxyhemoglobin ABG Chloride ABG Glucose Oxyhemoglobin Sodium Potassium Chloride Carbon Dioxide BUN Creatinine Glucose POC Glucose 141 H 122 H Lactic Acid Calcium Phosphorus Magnesium AST ALT Lactate Dehydrogenase Total Bilirubin Direct Bilirubin CK-MB (CK-2) C-Reactive Protein NT-Pro-B Natriuret Pep Total Protein Albumin Arterial Blood Glucose Urine WBC (Auto) Urine Creatinine 01/26/20 01/26/20 01/27/20 18:03 23:55 04:47 WBC RBC Hgb Hct MCHC RDW MCV MCH Lymph % (Auto) [place] % (Auto) [place] # Eos # Lymph # (Auto) [place] # (Auto) Eos # (Auto) Seg Neutrophils % Seg Neuts % (Manual) Baso # (Auto) Lymphocytes % (Manual) Monocytes % (Manual) Eosinophils % (Manual) Basophils % (Manual) Seg Neutrophils # Seg Neutrophils # Man Lymphocytes # (Manual) Monocytes # (Manual) Eosinophils # (Manual) Nucleated RBC % Basophils # (Manual) PT INR APTT Heparin Anti-Xa Level ABG pH POC ABG pO2 ABG pO2 ABG HCO3 ABG O2 Saturation ABG Base Excess POC ABG pCO2 ABG Hemoglobin ABG Oxyhemoglobin ABG Chloride ABG Glucose Oxyhemoglobin Sodium Potassium Chloride Carbon Dioxide BUN 30 H Creatinine 0.7 L Glucose 135 H POC Glucose 142 H 159 H Lactic Acid Calcium Phosphorus Magnesium AST ALT Lactate Dehydrogenase Total Bilirubin Direct Bilirubin CK-MB (CK-2) C-Reactive Protein NT-Pro-B Natriuret Pep Total Protein Albumin Arterial Blood Glucose Urine WBC (Auto) Urine Creatinine 01/27/20 01/27/20 01/27/20 05:43 12:06 17:16 WBC RBC Hgb Hct MCHC RDW MCV MCH Lymph % (Auto) [place] % (Auto) [place] # Eos # Lymph # (Auto) [place] # (Auto) Eos # (Auto) Seg Neutrophils % Seg Neuts % (Manual) Baso # (Auto) Lymphocytes % (Manual) Monocytes % (Manual) Eosinophils % (Manual) Basophils % (Manual) Seg Neutrophils # Seg Neutrophils # Man Lymphocytes # (Manual) Monocytes # (Manual) Eosinophils # (Manual) Nucleated RBC % Basophils # (Manual) PT INR APTT Heparin Anti-Xa Level ABG pH POC ABG pO2 ABG pO2 ABG HCO3 ABG O2 Saturation ABG Base Excess POC ABG pCO2 ABG Hemoglobin ABG Oxyhemoglobin ABG Chloride ABG Glucose Oxyhemoglobin Sodium Potassium Chloride Carbon Dioxide BUN Creatinine Glucose POC Glucose 143 H 142 H 128 H Lactic Acid Calcium Phosphorus Magnesium AST ALT Lactate Dehydrogenase Total Bilirubin Direct Bilirubin CK-MB (CK-2) C-Reactive Protein NT-Pro-B Natriuret Pep Total Protein Albumin Arterial Blood Glucose Urine WBC (Auto) Urine Creatinine 01/27/20 01/28/20 01/28/20 23:55 04:37 05:55 WBC RBC Hgb 9.4 L Hct 29.9 L MCHC RDW MCV MCH Lymph % (Auto) [place] % (Auto) [place] # Eos # Lymph # (Auto) [place] # (Auto) Eos # (Auto) Seg Neutrophils % Seg Neuts % (Manual) Baso # (Auto) Lymphocytes % (Manual) Monocytes % (Manual) Eosinophils % (Manual) Basophils % (Manual) Seg Neutrophils # Seg Neutrophils # Man Lymphocytes # (Manual) Monocytes # (Manual) Eosinophils # (Manual) Nucleated RBC % Basophils # (Manual) PT INR APTT Heparin Anti-Xa Level ABG pH POC ABG pO2 ABG pO2 ABG HCO3 ABG O2 Saturation ABG Base Excess POC ABG pCO2 ABG Hemoglobin ABG Oxyhemoglobin ABG Chloride ABG Glucose Oxyhemoglobin Sodium Potassium Chloride Carbon Dioxide BUN Creatinine Glucose POC Glucose 166 H 169 H Lactic Acid Calcium Phosphorus Magnesium AST ALT Lactate Dehydrogenase Total Bilirubin Direct Bilirubin CK-MB (CK-2) C-Reactive Protein NT-Pro-B Natriuret Pep Total Protein Albumin Arterial Blood Glucose Urine WBC (Auto) Urine Creatinine 01/28/20 01/28/20 01/28/20 11:58 17:26 23:46 WBC RBC Hgb Hct MCHC RDW MCV MCH Lymph % (Auto) [place] % (Auto) [place] # Eos # Lymph # (Auto) [place] # (Auto) Eos # (Auto) Seg Neutrophils % Seg Neuts % (Manual) Baso # (Auto) Lymphocytes % (Manual) Monocytes % (Manual) Eosinophils % (Manual) Basophils % (Manual) Seg Neutrophils # Seg Neutrophils # Man Lymphocytes # (Manual) Monocytes # (Manual) Eosinophils # (Manual) Nucleated RBC % Basophils # (Manual) PT INR APTT Heparin Anti-Xa Level ABG pH POC ABG pO2 ABG pO2 ABG HCO3 ABG O2 Saturation ABG Base Excess POC ABG pCO2 ABG Hemoglobin ABG Oxyhemoglobin ABG Chloride ABG Glucose Oxyhemoglobin Sodium Potassium Chloride Carbon Dioxide BUN Creatinine Glucose POC Glucose 130 H 126 H 150 H Lactic Acid Calcium Phosphorus Magnesium AST ALT Lactate Dehydrogenase Total Bilirubin Direct Bilirubin CK-MB (CK-2) C-Reactive Protein NT-Pro-B Natriuret Pep Total Protein Albumin Arterial Blood Glucose Urine WBC (Auto) Urine Creatinine 01/29/20 01/29/20 01/29/20 04:55 06:00 12:28 WBC RBC Hgb Hct MCHC RDW MCV MCH Lymph % (Auto) [place] % (Auto) [place] # Eos # Lymph # (Auto) [place] # (Auto) Eos # (Auto) Seg Neutrophils % Seg Neuts % (Manual) Baso # (Auto) Lymphocytes % (Manual) Monocytes % (Manual) Eosinophils % (Manual) Basophils % (Manual) Seg Neutrophils # Seg Neutrophils # Man Lymphocytes # (Manual) Monocytes # (Manual) Eosinophils # (Manual) Nucleated RBC % Basophils # (Manual) PT INR APTT Heparin Anti-Xa Level ABG pH POC ABG pO2 ABG pO2 ABG HCO3 ABG O2 Saturation ABG Base Excess POC ABG pCO2 ABG Hemoglobin ABG Oxyhemoglobin ABG Chloride ABG Glucose Oxyhemoglobin Sodium Potassium Chloride Carbon Dioxide 34 H BUN Creatinine 0.6 L Glucose 152 H POC Glucose 157 H 156 H Lactic Acid Calcium Phosphorus Magnesium AST ALT Lactate Dehydrogenase Total Bilirubin Direct Bilirubin CK-MB (CK-2) C-Reactive Protein NT-Pro-B Natriuret Pep Total Protein Albumin Arterial Blood Glucose Urine WBC (Auto) Urine Creatinine 01/29/20 01/30/20 01/30/20 19:06 00:29 05:39 WBC RBC Hgb Hct MCHC RDW MCV MCH Lymph % (Auto) [place] % (Auto) [place] # Eos # Lymph # (Auto) [place] # (Auto) Eos # (Auto) Seg Neutrophils % Seg Neuts % (Manual) Baso # (Auto) Lymphocytes % (Manual) Monocytes % (Manual) Eosinophils % (Manual) Basophils % (Manual) Seg Neutrophils # Seg Neutrophils # Man Lymphocytes # (Manual) Monocytes # (Manual) Eosinophils # (Manual) Nucleated RBC % Basophils # (Manual) PT INR APTT Heparin Anti-Xa Level ABG pH POC ABG pO2 ABG pO2 ABG HCO3 ABG O2 Saturation ABG Base Excess POC ABG pCO2 ABG Hemoglobin ABG Oxyhemoglobin ABG Chloride ABG Glucose Oxyhemoglobin Sodium Potassium Chloride Carbon Dioxide BUN Creatinine Glucose POC Glucose 152 H 132 H 159 H Lactic Acid Calcium Phosphorus Magnesium AST ALT Lactate Dehydrogenase Total Bilirubin Direct Bilirubin CK-MB (CK-2) C-Reactive Protein NT-Pro-B Natriuret Pep Total Protein Albumin Arterial Blood Glucose Urine WBC (Auto) Urine Creatinine 01/30/20 01/30/20 01/30/20 12:27 17:42 23:28 WBC RBC Hgb Hct MCHC RDW MCV MCH Lymph % (Auto) [place] % (Auto) [place] # Eos # Lymph # (Auto) [place] # (Auto) Eos # (Auto) Seg Neutrophils % Seg Neuts % (Manual) Baso # (Auto) Lymphocytes % (Manual) Monocytes % (Manual) Eosinophils % (Manual) Basophils % (Manual) Seg Neutrophils # Seg Neutrophils # Man Lymphocytes # (Manual) Monocytes # (Manual) Eosinophils # (Manual) Nucleated RBC % Basophils # (Manual) PT INR APTT Heparin Anti-Xa Level ABG pH POC ABG pO2 ABG pO2 ABG HCO3 ABG O2 Saturation ABG Base Excess POC ABG pCO2 ABG Hemoglobin ABG Oxyhemoglobin ABG Chloride ABG Glucose Oxyhemoglobin Sodium Potassium Chloride Carbon Dioxide BUN Creatinine Glucose POC Glucose 151 H 144 H 164 H Lactic Acid Calcium Phosphorus Magnesium AST ALT Lactate Dehydrogenase Total Bilirubin Direct Bilirubin CK-MB (CK-2) C-Reactive Protein NT-Pro-B Natriuret Pep Total Protein Albumin Arterial Blood Glucose Urine WBC (Auto) Urine Creatinine 01/31/20 01/31/20 01/31/20 05:51 11:51 18:06 WBC RBC Hgb Hct MCHC RDW MCV MCH Lymph % (Auto) [place] % (Auto) [place] # Eos # Lymph # (Auto) [place] # (Auto) Eos # (Auto) Seg Neutrophils % Seg Neuts % (Manual) Baso # (Auto) Lymphocytes % (Manual) Monocytes % (Manual) Eosinophils % (Manual) Basophils % (Manual) Seg Neutrophils # Seg Neutrophils # Man Lymphocytes # (Manual) Monocytes # (Manual) Eosinophils # (Manual) Nucleated RBC % Basophils # (Manual) PT INR APTT Heparin Anti-Xa Level ABG pH POC ABG pO2 ABG pO2 ABG HCO3 ABG O2 Saturation ABG Base Excess POC ABG pCO2 ABG Hemoglobin ABG Oxyhemoglobin ABG Chloride ABG Glucose Oxyhemoglobin Sodium Potassium Chloride Carbon Dioxide BUN Creatinine Glucose POC Glucose 131 H 167 H 210 H Lactic Acid Calcium Phosphorus Magnesium AST ALT Lactate Dehydrogenase Total Bilirubin Direct Bilirubin CK-MB (CK-2) C-Reactive Protein NT-Pro-B Natriuret Pep Total Protein Albumin Arterial Blood Glucose Urine WBC (Auto) Urine Creatinine 01/31/20 01/31/20 02/01/20 19:24 Unknown 00:34 WBC RBC Hgb Hct MCHC RDW MCV MCH Lymph % (Auto) [place] % (Auto) [place] # Eos # Lymph # (Auto) [place] # (Auto) Eos # (Auto) Seg Neutrophils % Seg Neuts % (Manual) Baso # (Auto) Lymphocytes % (Manual) Monocytes % (Manual) Eosinophils % (Manual) Basophils % (Manual) Seg Neutrophils # Seg Neutrophils # Man Lymphocytes # (Manual) Monocytes # (Manual) Eosinophils # (Manual) Nucleated RBC % Basophils # (Manual) PT INR APTT Heparin Anti-Xa Level ABG pH POC ABG pO2 ABG pO2 ABG HCO3 ABG O2 Saturation ABG Base Excess POC ABG pCO2 ABG Hemoglobin ABG Oxyhemoglobin ABG Chloride ABG Glucose Oxyhemoglobin Sodium Potassium Chloride 95.3 L Carbon Dioxide 33 H BUN 36 H Creatinine Glucose 187 H POC Glucose 116 H Lactic Acid Calcium Phosphorus Magnesium AST ALT Lactate Dehydrogenase Total Bilirubin Direct Bilirubin CK-MB (CK-2) C-Reactive Protein NT-Pro-B Natriuret Pep Total Protein Albumin Arterial Blood Glucose Urine WBC (Auto) Urine Creatinine 57.4 H 02/01/20 02/01/20 02/01/20 05:24 10:40 12:29 WBC RBC Hgb Hct MCHC RDW MCV MCH Lymph % (Auto) [place] % (Auto) [place] # Eos # Lymph # (Auto) [place] # (Auto) Eos # (Auto) Seg Neutrophils % Seg Neuts % (Manual) Baso # (Auto) Lymphocytes % (Manual) Monocytes % (Manual) Eosinophils % (Manual) Basophils % (Manual) Seg Neutrophils # Seg Neutrophils # Man Lymphocytes # (Manual) Monocytes # (Manual) Eosinophils # (Manual) Nucleated RBC % Basophils # (Manual) PT INR APTT Heparin Anti-Xa Level ABG pH POC ABG pO2 ABG pO2 ABG HCO3 ABG O2 Saturation ABG Base Excess POC ABG pCO2 ABG Hemoglobin ABG Oxyhemoglobin ABG Chloride ABG Glucose Oxyhemoglobin Sodium Potassium Chloride Carbon Dioxide BUN Creatinine Glucose POC Glucose 142 H 165 H 151 H Lactic Acid Calcium Phosphorus Magnesium AST ALT Lactate Dehydrogenase Total Bilirubin Direct Bilirubin CK-MB (CK-2) C-Reactive Protein NT-Pro-B Natriuret Pep Total Protein Albumin Arterial Blood Glucose Urine WBC (Auto) Urine Creatinine 02/01/20 02/01/20 02/02/20 17:16 23:23 06:36 WBC RBC Hgb Hct MCHC RDW MCV MCH Lymph % (Auto) [place] % (Auto) [place] # Eos # Lymph # (Auto) [place] # (Auto) Eos # (Auto) Seg Neutrophils % Seg Neuts % (Manual) Baso # (Auto) Lymphocytes % (Manual) Monocytes % (Manual) Eosinophils % (Manual) Basophils % (Manual) Seg Neutrophils # Seg Neutrophils # Man Lymphocytes # (Manual) Monocytes # (Manual) Eosinophils # (Manual) Nucleated RBC % Basophils # (Manual) PT INR APTT Heparin Anti-Xa Level ABG pH POC ABG pO2 ABG pO2 ABG HCO3 ABG O2 Saturation ABG Base Excess POC ABG pCO2 ABG Hemoglobin ABG Oxyhemoglobin ABG Chloride ABG Glucose Oxyhemoglobin Sodium Potassium Chloride Carbon Dioxide BUN Creatinine Glucose POC Glucose 137 H 145 H 181 H Lactic Acid Calcium Phosphorus Magnesium AST ALT Lactate Dehydrogenase Total Bilirubin Direct Bilirubin CK-MB (CK-2) C-Reactive Protein NT-Pro-B Natriuret Pep Total Protein Albumin Arterial Blood Glucose Urine WBC (Auto) Urine Creatinine 02/02/20 02/02/20 02/02/20 10:01 12:05 17:54 WBC RBC Hgb Hct MCHC RDW MCV MCH Lymph % (Auto) [place] % (Auto) [place] # Eos # Lymph # (Auto) [place] # (Auto) Eos # (Auto) Seg Neutrophils % Seg Neuts % (Manual) Baso # (Auto) Lymphocytes % (Manual) Monocytes % (Manual) Eosinophils % (Manual) Basophils % (Manual) Seg Neutrophils # Seg Neutrophils # Man Lymphocytes # (Manual) Monocytes # (Manual) Eosinophils # (Manual) Nucleated RBC % Basophils # (Manual) PT INR APTT Heparin Anti-Xa Level ABG pH POC ABG pO2 ABG pO2 ABG HCO3 ABG O2 Saturation ABG Base Excess POC ABG pCO2 ABG Hemoglobin ABG Oxyhemoglobin ABG Chloride ABG Glucose Oxyhemoglobin Sodium Potassium Chloride 95.3 L Carbon Dioxide BUN 44 H Creatinine Glucose 234 H POC Glucose 184 H 127 H Lactic Acid Calcium Phosphorus Magnesium AST 363 H ALT 457 H Lactate Dehydrogenase Total Bilirubin Direct Bilirubin CK-MB (CK-2) C-Reactive Protein NT-Pro-B Natriuret Pep Total Protein Albumin 3.0 L Arterial Blood Glucose Urine WBC (Auto) Urine Creatinine 02/02/20 02/03/20 02/03/20 23:47 05:32 07:04 WBC 13.0 H RBC Hgb 9.5 L Hct 30.8 L MCHC 31 L RDW 19.6 H MCV 81 L MCH 25 L Lymph % (Auto) [place] % (Auto) 9.4 H [place] # Eos # Lymph # (Auto) [place] # (Auto) 1.2 H Eos # (Auto) Seg Neutrophils % 72.3 H Seg Neuts % (Manual) Baso # (Auto) Lymphocytes % (Manual) Monocytes % (Manual) Eosinophils % (Manual) Basophils % (Manual) Seg Neutrophils # 9.4 H Seg Neutrophils # Man Lymphocytes # (Manual) Monocytes # (Manual) Eosinophils # (Manual) Nucleated RBC % Basophils # (Manual) PT INR APTT Heparin Anti-Xa Level ABG pH POC ABG pO2 ABG pO2 ABG HCO3 ABG O2 Saturation ABG Base Excess POC ABG pCO2 ABG Hemoglobin ABG Oxyhemoglobin ABG Chloride ABG Glucose Oxyhemoglobin Sodium Potassium Chloride Carbon Dioxide BUN Creatinine Glucose POC Glucose 124 H 129 H Lactic Acid Calcium Phosphorus Magnesium AST ALT Lactate Dehydrogenase Total Bilirubin Direct Bilirubin CK-MB (CK-2) C-Reactive Protein NT-Pro-B Natriuret Pep Total Protein Albumin Arterial Blood Glucose Urine WBC (Auto) Urine Creatinine 02/03/20 02/03/20 02/03/20 07:04 11:32 12:49 WBC RBC Hgb Hct MCHC RDW MCV MCH Lymph % (Auto) [place] % (Auto) [place] # Eos # Lymph # (Auto) [place] # (Auto) Eos # (Auto) Seg Neutrophils % Seg Neuts % (Manual) Baso # (Auto) Lymphocytes % (Manual) Monocytes % (Manual) Eosinophils % (Manual) Basophils % (Manual) Seg Neutrophils # Seg Neutrophils # Man Lymphocytes # (Manual) Monocytes # (Manual) Eosinophils # (Manual) Nucleated RBC % Basophils # (Manual) PT INR APTT Heparin Anti-Xa Level ABG pH POC ABG pO2 ABG pO2 ABG HCO3 ABG O2 Saturation ABG Base Excess POC ABG pCO2 ABG Hemoglobin ABG Oxyhemoglobin ABG Chloride ABG Glucose Oxyhemoglobin Sodium Potassium Chloride 97.9 L Carbon Dioxide 33 H BUN 39 H Creatinine Glucose 119 H POC Glucose 138 H Lactic Acid Calcium Phosphorus Magnesium 2.60 H AST ALT Lactate Dehydrogenase Total Bilirubin Direct Bilirubin CK-MB (CK-2) C-Reactive Protein NT-Pro-B Natriuret Pep Total Protein Albumin Arterial Blood Glucose Urine WBC (Auto) Urine Creatinine 02/03/20 02/04/20 02/04/20 18:28 16:24 16:24 WBC RBC 3.38 L Hgb 8.6 L Hct 26.9 L MCHC RDW 19.5 H MCV 80 L MCH 26 L Lymph % (Auto) [place] % (Auto) [place] # Eos # Lymph # (Auto) [place] # (Auto) Eos # (Auto) Seg Neutrophils % Seg Neuts % (Manual) Baso # (Auto) Lymphocytes % (Manual) Monocytes % (Manual) Eosinophils % (Manual) Basophils % (Manual) Seg Neutrophils # Seg Neutrophils # Man Lymphocytes # (Manual) Monocytes # (Manual) Eosinophils # (Manual) Nucleated RBC % Basophils # (Manual) PT INR APTT Heparin Anti-Xa Level ABG pH POC ABG pO2 ABG pO2 ABG HCO3 ABG O2 Saturation ABG Base Excess POC ABG pCO2 ABG Hemoglobin ABG Oxyhemoglobin ABG Chloride ABG Glucose Oxyhemoglobin Sodium Potassium 3.4 L Chloride Carbon Dioxide 31 H BUN 37 H Creatinine Glucose 70 L POC Glucose 118 H Lactic Acid Calcium Phosphorus Magnesium AST 169 H ALT 394 H Lactate Dehydrogenase Total Bilirubin 1.50 H Direct Bilirubin CK-MB (CK-2) C-Reactive Protein NT-Pro-B Natriuret Pep Total Protein Albumin 2.9 L Arterial Blood Glucose Urine WBC (Auto) Urine Creatinine 02/05/20 02/05/20 02/05/20 00:41 06:37 17:14 WBC RBC Hgb Hct MCHC RDW MCV MCH Lymph % (Auto) [place] % (Auto) [place] # Eos # Lymph # (Auto) [place] # (Auto) Eos # (Auto) Seg Neutrophils % Seg Neuts % (Manual) Baso # (Auto) Lymphocytes % (Manual) Monocytes % (Manual) Eosinophils % (Manual) Basophils % (Manual) Seg Neutrophils # Seg Neutrophils # Man Lymphocytes # (Manual) Monocytes # (Manual) Eosinophils # (Manual) Nucleated RBC % Basophils # (Manual) PT INR APTT Heparin Anti-Xa Level ABG pH POC ABG pO2 ABG pO2 ABG HCO3 ABG O2 Saturation ABG Base Excess POC ABG pCO2 ABG Hemoglobin ABG Oxyhemoglobin ABG Chloride ABG Glucose Oxyhemoglobin Sodium Potassium 3.1 L Chloride Carbon Dioxide 35 H BUN 32 H Creatinine 0.7 L Glucose POC Glucose 69 L 127 H Lactic Acid Calcium Phosphorus Magnesium AST 134 H ALT 352 H Lactate Dehydrogenase Total Bilirubin 1.60 H Direct Bilirubin CK-MB (CK-2) C-Reactive Protein NT-Pro-B Natriuret Pep Total Protein Albumin 2.9 L Arterial Blood Glucose Urine WBC (Auto) Urine Creatinine 02/05/20 02/06/20 02/06/20 23:43 05:32 08:01 WBC RBC Hgb Hct MCHC RDW MCV MCH Lymph % (Auto) [place] % (Auto) [place] # Eos # Lymph # (Auto) [place] # (Auto) Eos # (Auto) Seg Neutrophils % Seg Neuts % (Manual) Baso # (Auto) Lymphocytes % (Manual) Monocytes % (Manual) Eosinophils % (Manual) Basophils % (Manual) Seg Neutrophils # Seg Neutrophils # Man Lymphocytes # (Manual) Monocytes # (Manual) Eosinophils # (Manual) Nucleated RBC % Basophils # (Manual) PT INR APTT Heparin Anti-Xa Level ABG pH POC ABG pO2 ABG pO2 ABG HCO3 ABG O2 Saturation ABG Base Excess POC ABG pCO2 ABG Hemoglobin ABG Oxyhemoglobin ABG Chloride ABG Glucose Oxyhemoglobin Sodium Potassium Chloride Carbon Dioxide BUN 40 H Creatinine Glucose 132 H POC Glucose 129 H 131 H Lactic Acid Calcium Phosphorus Magnesium AST ALT Lactate Dehydrogenase Total Bilirubin Direct Bilirubin CK-MB (CK-2) C-Reactive Protein NT-Pro-B Natriuret Pep Total Protein Albumin Arterial Blood Glucose Urine WBC (Auto) Urine Creatinine 02/06/20 02/06/20 02/06/20 11:51 16:28 17:32 WBC RBC Hgb Hct MCHC RDW MCV MCH Lymph % (Auto) [place] % (Auto) [place] # Eos # Lymph # (Auto) [place] # (Auto) Eos # (Auto) Seg Neutrophils % Seg Neuts % (Manual) Baso # (Auto) Lymphocytes % (Manual) Monocytes % (Manual) Eosinophils % (Manual) Basophils % (Manual) Seg Neutrophils # Seg Neutrophils # Man Lymphocytes # (Manual) Monocytes # (Manual) Eosinophils # (Manual) Nucleated RBC % Basophils # (Manual) PT INR APTT Heparin Anti-Xa Level ABG pH POC ABG pO2 ABG pO2 ABG HCO3 ABG O2 Saturation ABG Base Excess POC ABG pCO2 ABG Hemoglobin ABG Oxyhemoglobin ABG Chloride ABG Glucose Oxyhemoglobin Sodium Potassium Chloride Carbon Dioxide BUN Creatinine Glucose POC Glucose 167 H 129 H Lactic Acid Calcium Phosphorus Magnesium AST 824 H ALT 948 H Lactate Dehydrogenase Total Bilirubin 1.70 H Direct Bilirubin 1.2 H CK-MB (CK-2) C-Reactive Protein NT-Pro-B Natriuret Pep Total Protein Albumin 2.9 L Arterial Blood Glucose Urine WBC (Auto) Urine Creatinine 02/07/20 02/07/20 02/07/20 00:11 04:57 04:57 WBC RBC Hgb 9.2 L Hct 29.7 L MCHC 31 L RDW 20.2 H MCV 80 L MCH 25 L Lymph % (Auto) [place] % (Auto) [place] # Eos # Lymph # (Auto) [place] # (Auto) Eos # (Auto) Seg Neutrophils % Seg Neuts % (Manual) Baso # (Auto) Lymphocytes % (Manual) Monocytes % (Manual) Eosinophils % (Manual) Basophils % (Manual) Seg Neutrophils # Seg Neutrophils # Man Lymphocytes # (Manual) Monocytes # (Manual) Eosinophils # (Manual) Nucleated RBC % Basophils # (Manual) PT INR APTT Heparin Anti-Xa Level ABG pH POC ABG pO2 ABG pO2 ABG HCO3 ABG O2 Saturation ABG Base Excess POC ABG pCO2 ABG Hemoglobin ABG Oxyhemoglobin ABG Chloride ABG Glucose Oxyhemoglobin Sodium Potassium 3.4 L D Chloride Carbon Dioxide 32 H BUN 39 H Creatinine Glucose 106 H POC Glucose 121 H Lactic Acid Calcium Phosphorus Magnesium AST ALT Lactate Dehydrogenase Total Bilirubin Direct Bilirubin CK-MB (CK-2) C-Reactive Protein NT-Pro-B Natriuret Pep Total Protein Albumin Arterial Blood Glucose Urine WBC (Auto) Urine Creatinine 02/07/20 02/07/20 02/07/20 15:03 15:03 17:11 WBC RBC Hgb Hct MCHC RDW MCV MCH Lymph % (Auto) [place] % (Auto) [place] # Eos # Lymph # (Auto) [place] # (Auto) Eos # (Auto) Seg Neutrophils % Seg Neuts % (Manual) Baso # (Auto) Lymphocytes % (Manual) Monocytes % (Manual) Eosinophils % (Manual) Basophils % (Manual) Seg Neutrophils # Seg Neutrophils # Man Lymphocytes # (Manual) Monocytes # (Manual) Eosinophils # (Manual) Nucleated RBC % Basophils # (Manual) PT 27.0 H INR 2.46 H APTT Heparin Anti-Xa Level ABG pH POC ABG pO2 ABG pO2 ABG HCO3 ABG O2 Saturation ABG Base Excess POC ABG pCO2 ABG Hemoglobin ABG Oxyhemoglobin ABG Chloride ABG Glucose Oxyhemoglobin Sodium Potassium Chloride Carbon Dioxide BUN Creatinine Glucose POC Glucose 109 H Lactic Acid Calcium Phosphorus Magnesium AST 424 H ALT 796 H Lactate Dehydrogenase Total Bilirubin 1.60 H Direct Bilirubin 1.2 H CK-MB (CK-2) C-Reactive Protein NT-Pro-B Natriuret Pep Total Protein Albumin 2.9 L Arterial Blood Glucose Urine WBC (Auto) Urine Creatinine 02/08/20 02/08/20 02/08/20 12:14 17:44 19:00 WBC RBC Hgb Hct MCHC RDW MCV MCH Lymph % (Auto) [place] % (Auto) [place] # Eos # Lymph # (Auto) [place] # (Auto) Eos # (Auto) Seg Neutrophils % Seg Neuts % (Manual) Baso # (Auto) Lymphocytes % (Manual) Monocytes % (Manual) Eosinophils % (Manual) Basophils % (Manual) Seg Neutrophils # Seg Neutrophils # Man Lymphocytes # (Manual) Monocytes # (Manual) Eosinophils # (Manual) Nucleated RBC % Basophils # (Manual) PT INR APTT Heparin Anti-Xa Level ABG pH POC ABG pO2 ABG pO2 ABG HCO3 ABG O2 Saturation ABG Base Excess POC ABG pCO2 ABG Hemoglobin ABG Oxyhemoglobin ABG Chloride ABG Glucose Oxyhemoglobin Sodium Potassium Chloride Carbon Dioxide BUN Creatinine Glucose POC Glucose 111 H 107 H Lactic Acid Calcium Phosphorus Magnesium AST 309 H ALT 650 H Lactate Dehydrogenase Total Bilirubin 1.30 H Direct Bilirubin 0.9 H CK-MB (CK-2) C-Reactive Protein NT-Pro-B Natriuret Pep Total Protein 6.2 L Albumin 2.7 L Arterial Blood Glucose Urine WBC (Auto) Urine Creatinine 02/09/20 02/09/20 02/09/20 05:41 12:28 18:07 WBC RBC Hgb Hct MCHC RDW MCV MCH Lymph % (Auto) [place] % (Auto) [place] # Eos # Lymph # (Auto) [place] # (Auto) Eos # (Auto) Seg Neutrophils % Seg Neuts % (Manual) Baso # (Auto) Lymphocytes % (Manual) Monocytes % (Manual) Eosinophils % (Manual) Basophils % (Manual) Seg Neutrophils # Seg Neutrophils # Man Lymphocytes # (Manual) Monocytes # (Manual) Eosinophils # (Manual) Nucleated RBC % Basophils # (Manual) PT INR APTT Heparin Anti-Xa Level ABG pH POC ABG pO2 ABG pO2 ABG HCO3 ABG O2 Saturation ABG Base Excess POC ABG pCO2 ABG Hemoglobin ABG Oxyhemoglobin ABG Chloride ABG Glucose Oxyhemoglobin Sodium Potassium Chloride Carbon Dioxide BUN Creatinine Glucose POC Glucose 113 H 140 H 143 H Lactic Acid Calcium Phosphorus Magnesium AST ALT Lactate Dehydrogenase Total Bilirubin Direct Bilirubin CK-MB (CK-2) C-Reactive Protein NT-Pro-B Natriuret Pep Total Protein Albumin Arterial Blood Glucose Urine WBC (Auto) Urine Creatinine 02/09/20 02/09/20 02/10/20 21:40 23:45 06:00 WBC RBC Hgb Hct MCHC RDW MCV MCH Lymph % (Auto) [place] % (Auto) [place] # Eos # Lymph # (Auto) [place] # (Auto) Eos # (Auto) Seg Neutrophils % Seg Neuts % (Manual) Baso # (Auto) Lymphocytes % (Manual) Monocytes % (Manual) Eosinophils % (Manual) Basophils % (Manual) Seg Neutrophils # Seg Neutrophils # Man Lymphocytes # (Manual) Monocytes # (Manual) Eosinophils # (Manual) Nucleated RBC % Basophils # (Manual) PT INR APTT Heparin Anti-Xa Level ABG pH POC ABG pO2 ABG pO2 59.8 L ABG HCO3 33.3 H ABG O2 Saturation 88.9 L ABG Base Excess 7.4 H POC ABG pCO2 ABG Hemoglobin 10.4 L ABG Oxyhemoglobin ABG Chloride ABG Glucose Oxyhemoglobin 86.3 L Sodium Potassium Chloride Carbon Dioxide BUN Creatinine Glucose POC Glucose 127 H 114 H Lactic Acid Calcium Phosphorus Magnesium AST ALT Lactate Dehydrogenase Total Bilirubin Direct Bilirubin CK-MB (CK-2) C-Reactive Protein NT-Pro-B Natriuret Pep Total Protein Albumin Arterial Blood Glucose Urine WBC (Auto) Urine Creatinine 02/10/20 02/10/20 02/10/20 07:40 07:40 13:38 WBC 11.5 H RBC Hgb 10.6 L Hct 34.7 L MCHC 31 L RDW 19.8 H MCV 79 L MCH 24 L Lymph % (Auto) [place] % (Auto) 9.2 H [place] # Eos # Lymph # (Auto) [place] # (Auto) 1.1 H Eos # (Auto) Seg Neutrophils % Seg Neuts % (Manual) Baso # (Auto) Lymphocytes % (Manual) Monocytes % (Manual) Eosinophils % (Manual) Basophils % (Manual) Seg Neutrophils # Seg Neutrophils # Man Lymphocytes # (Manual) Monocytes # (Manual) Eosinophils # (Manual) Nucleated RBC % Basophils # (Manual) PT INR APTT Heparin Anti-Xa Level ABG pH POC ABG pO2 ABG pO2 ABG HCO3 ABG O2 Saturation ABG Base Excess POC ABG pCO2 ABG Hemoglobin ABG Oxyhemoglobin ABG Chloride ABG Glucose Oxyhemoglobin Sodium 151 H Potassium Chloride 107.2 H Carbon Dioxide 36 H BUN 25 H Creatinine 0.7 L Glucose 114 H POC Glucose 116 H Lactic Acid Calcium Phosphorus Magnesium 2.40 H AST ALT Lactate Dehydrogenase Total Bilirubin Direct Bilirubin CK-MB (CK-2) C-Reactive Protein NT-Pro-B Natriuret Pep Total Protein Albumin Arterial Blood Glucose Urine WBC (Auto) Urine Creatinine 02/10/20 02/11/20 02/11/20 17:44 05:47 12:21 WBC RBC Hgb Hct MCHC RDW MCV MCH Lymph % (Auto) [place] % (Auto) [place] # Eos # Lymph # (Auto) [place] # (Auto) Eos # (Auto) Seg Neutrophils % Seg Neuts % (Manual) Baso # (Auto) Lymphocytes % (Manual) Monocytes % (Manual) Eosinophils % (Manual) Basophils % (Manual) Seg Neutrophils # Seg Neutrophils # Man Lymphocytes # (Manual) Monocytes # (Manual) Eosinophils # (Manual) Nucleated RBC % Basophils # (Manual) PT INR APTT Heparin Anti-Xa Level ABG pH POC ABG pO2 ABG pO2 ABG HCO3 ABG O2 Saturation ABG Base Excess POC ABG pCO2 ABG Hemoglobin ABG Oxyhemoglobin ABG Chloride ABG Glucose Oxyhemoglobin Sodium Potassium Chloride Carbon Dioxide BUN Creatinine Glucose POC Glucose 139 H 173 H 143 H Lactic Acid Calcium Phosphorus Magnesium AST ALT Lactate Dehydrogenase Total Bilirubin Direct Bilirubin CK-MB (CK-2) C-Reactive Protein NT-Pro-B Natriuret Pep Total Protein Albumin Arterial Blood Glucose Urine WBC (Auto) Urine Creatinine 02/11/20 02/11/20 02/12/20 13:43 14:11 00:15 WBC RBC Hgb Hct MCHC RDW MCV MCH Lymph % (Auto) [place] % (Auto) [place] # Eos # Lymph # (Auto) [place] # (Auto) Eos # (Auto) Seg Neutrophils % Seg Neuts % (Manual) Baso # (Auto) Lymphocytes % (Manual) Monocytes % (Manual) Eosinophils % (Manual) Basophils % (Manual) Seg Neutrophils # Seg Neutrophils # Man Lymphocytes # (Manual) Monocytes # (Manual) Eosinophils # (Manual) Nucleated RBC % Basophils # (Manual) PT INR APTT Heparin Anti-Xa Level ABG pH 7.502 H POC ABG pO2 77.7 L ABG pO2 ABG HCO3 ABG O2 Saturation ABG Base Excess POC ABG pCO2 ABG Hemoglobin 11.1 L ABG Oxyhemoglobin ABG Chloride 108.0 H ABG Glucose 151 H Oxyhemoglobin Sodium Potassium Chloride Carbon Dioxide BUN Creatinine Glucose POC Glucose 130 H 125 H Lactic Acid Calcium Phosphorus Magnesium AST ALT Lactate Dehydrogenase Total Bilirubin Direct Bilirubin CK-MB (CK-2) C-Reactive Protein NT-Pro-B Natriuret Pep Total Protein Albumin Arterial Blood Glucose 151 H Urine WBC (Auto) Urine Creatinine 02/12/20 02/12/20 02/12/20 04:56 04:56 17:42 WBC RBC Hgb 9.9 L Hct 31.8 L MCHC 31 L RDW 19.4 H MCV 79 L MCH 25 L Lymph % (Auto) [place] % (Auto) 10.3 H [place] # Eos # Lymph # (Auto) [place] # (Auto) 1.0 H Eos # (Auto) Seg Neutrophils % Seg Neuts % (Manual) Baso # (Auto) Lymphocytes % (Manual) Monocytes % (Manual) Eosinophils % (Manual) Basophils % (Manual) Seg Neutrophils # Seg Neutrophils # Man Lymphocytes # (Manual) Monocytes # (Manual) Eosinophils # (Manual) Nucleated RBC % Basophils # (Manual) PT INR APTT Heparin Anti-Xa Level ABG pH POC ABG pO2 ABG pO2 ABG HCO3 ABG O2 Saturation ABG Base Excess POC ABG pCO2 ABG Hemoglobin ABG Oxyhemoglobin ABG Chloride ABG Glucose Oxyhemoglobin Sodium 149 H Potassium Chloride 108.6 H Carbon Dioxide BUN 28 H Creatinine 0.7 L Glucose 108 H POC Glucose 113 H Lactic Acid Calcium Phosphorus Magnesium AST ALT Lactate Dehydrogenase Total Bilirubin Direct Bilirubin CK-MB (CK-2) C-Reactive Protein NT-Pro-B Natriuret Pep Total Protein Albumin Arterial Blood Glucose Urine WBC (Auto) Urine Creatinine 02/13/20 02/13/20 02/13/20 00:39 05:36 12:25 WBC RBC Hgb Hct MCHC RDW MCV MCH Lymph % (Auto) [place] % (Auto) [place] # Eos # Lymph # (Auto) [place] # (Auto) Eos # (Auto) Seg Neutrophils % Seg Neuts % (Manual) Baso # (Auto) Lymphocytes % (Manual) Monocytes % (Manual) Eosinophils % (Manual) Basophils % (Manual) Seg Neutrophils # Seg Neutrophils # Man Lymphocytes # (Manual) Monocytes # (Manual) Eosinophils # (Manual) Nucleated RBC % Basophils # (Manual) PT INR APTT Heparin Anti-Xa Level ABG pH POC ABG pO2 ABG pO2 ABG HCO3 ABG O2 Saturation ABG Base Excess POC ABG pCO2 ABG Hemoglobin ABG Oxyhemoglobin ABG Chloride ABG Glucose Oxyhemoglobin Sodium Potassium Chloride Carbon Dioxide BUN Creatinine Glucose POC Glucose 129 H 126 H 129 H Lactic Acid Calcium Phosphorus Magnesium AST ALT Lactate Dehydrogenase Total Bilirubin Direct Bilirubin CK-MB (CK-2) C-Reactive Protein NT-Pro-B Natriuret Pep Total Protein Albumin Arterial Blood Glucose Urine WBC (Auto) Urine Creatinine 02/13/20 02/14/20 02/14/20 17:59 00:15 05:41 WBC RBC Hgb Hct MCHC RDW MCV MCH Lymph % (Auto) [place] % (Auto) [place] # Eos # Lymph # (Auto) [place] # (Auto) Eos # (Auto) Seg Neutrophils % Seg Neuts % (Manual) Baso # (Auto) Lymphocytes % (Manual) Monocytes % (Manual) Eosinophils % (Manual) Basophils % (Manual) Seg Neutrophils # Seg Neutrophils # Man Lymphocytes # (Manual) Monocytes # (Manual) Eosinophils # (Manual) Nucleated RBC % Basophils # (Manual) PT INR APTT Heparin Anti-Xa Level ABG pH POC ABG pO2 ABG pO2 ABG HCO3 ABG O2 Saturation ABG Base Excess POC ABG pCO2 ABG Hemoglobin ABG Oxyhemoglobin ABG Chloride ABG Glucose Oxyhemoglobin Sodium Potassium Chloride Carbon Dioxide BUN Creatinine Glucose POC Glucose 153 H 130 H 130 H Lactic Acid Calcium Phosphorus Magnesium AST ALT Lactate Dehydrogenase Total Bilirubin Direct Bilirubin CK-MB (CK-2) C-Reactive Protein NT-Pro-B Natriuret Pep Total Protein Albumin Arterial Blood Glucose Urine WBC (Auto) Urine Creatinine 02/14/20 02/15/20 02/15/20 11:32 00:12 05:27 WBC RBC Hgb Hct MCHC RDW MCV MCH Lymph % (Auto) [place] % (Auto) [place] # Eos # Lymph # (Auto) [place] # (Auto) Eos # (Auto) Seg Neutrophils % Seg Neuts % (Manual) Baso # (Auto) Lymphocytes % (Manual) Monocytes % (Manual) Eosinophils % (Manual) Basophils % (Manual) Seg Neutrophils # Seg Neutrophils # Man Lymphocytes # (Manual) Monocytes # (Manual) Eosinophils # (Manual) Nucleated RBC % Basophils # (Manual) PT INR APTT Heparin Anti-Xa Level ABG pH POC ABG pO2 ABG pO2 ABG HCO3 ABG O2 Saturation ABG Base Excess POC ABG pCO2 ABG Hemoglobin ABG Oxyhemoglobin ABG Chloride ABG Glucose Oxyhemoglobin Sodium Potassium Chloride Carbon Dioxide BUN Creatinine Glucose POC Glucose 157 H 124 H 111 H Lactic Acid Calcium Phosphorus Magnesium AST ALT Lactate Dehydrogenase Total Bilirubin Direct Bilirubin CK-MB (CK-2) C-Reactive Protein NT-Pro-B Natriuret Pep Total Protein Albumin Arterial Blood Glucose Urine WBC (Auto) Urine Creatinine 02/15/20 02/15/20 02/15/20 06:59 06:59 11:14 WBC RBC Hgb 10.4 L Hct 33.7 L MCHC 31 L RDW 19.4 H MCV 80 L MCH 24 L Lymph % (Auto) [place] % (Auto) [place] # Eos # Lymph # (Auto) [place] # (Auto) Eos # (Auto) Seg Neutrophils % Seg Neuts % (Manual) Baso # (Auto) Lymphocytes % (Manual) Monocytes % (Manual) Eosinophils % (Manual) Basophils % (Manual) 2.0 H Seg Neutrophils # Seg Neutrophils # Man Lymphocytes # (Manual) Monocytes # (Manual) Eosinophils # (Manual) Nucleated RBC % 1.0 H Basophils # (Manual) 0.2 H PT INR APTT Heparin Anti-Xa Level ABG pH POC ABG pO2 ABG pO2 ABG HCO3 ABG O2 Saturation ABG Base Excess POC ABG pCO2 ABG Hemoglobin ABG Oxyhemoglobin ABG Chloride ABG Glucose Oxyhemoglobin Sodium 149 H Potassium Chloride 108.4 H Carbon Dioxide 31 H BUN 40 H Creatinine 0.7 L Glucose 150 H POC Glucose 128 H Lactic Acid Calcium Phosphorus Magnesium AST ALT Lactate Dehydrogenase Total Bilirubin Direct Bilirubin CK-MB (CK-2) C-Reactive Protein NT-Pro-B Natriuret Pep Total Protein Albumin Arterial Blood Glucose Urine WBC (Auto) Urine Creatinine 02/15/20 02/15/20 02/16/20 17:46 23:50 05:03 WBC RBC Hgb Hct MCHC RDW MCV MCH Lymph % (Auto) [place] % (Auto) [place] # Eos # Lymph # (Auto) [place] # (Auto) Eos # (Auto) Seg Neutrophils % Seg Neuts % (Manual) Baso # (Auto) Lymphocytes % (Manual) Monocytes % (Manual) Eosinophils % (Manual) Basophils % (Manual) Seg Neutrophils # Seg Neutrophils # Man Lymphocytes # (Manual) Monocytes # (Manual) Eosinophils # (Manual) Nucleated RBC % Basophils # (Manual) PT INR APTT Heparin Anti-Xa Level ABG pH POC ABG pO2 ABG pO2 ABG HCO3 ABG O2 Saturation ABG Base Excess POC ABG pCO2 ABG Hemoglobin ABG Oxyhemoglobin ABG Chloride ABG Glucose Oxyhemoglobin Sodium Potassium Chloride Carbon Dioxide BUN Creatinine Glucose POC Glucose 154 H 135 H 148 H Lactic Acid Calcium Phosphorus Magnesium AST ALT Lactate Dehydrogenase Total Bilirubin Direct Bilirubin CK-MB (CK-2) C-Reactive Protein NT-Pro-B Natriuret Pep Total Protein Albumin Arterial Blood Glucose Urine WBC (Auto) Urine Creatinine 02/16/20 02/16/20 02/16/20 07:53 11:28 17:52 WBC RBC Hgb Hct MCHC RDW MCV MCH Lymph % (Auto) [place] % (Auto) [place] # Eos # Lymph # (Auto) [place] # (Auto) Eos # (Auto) Seg Neutrophils % Seg Neuts % (Manual) Baso # (Auto) Lymphocytes % (Manual) Monocytes % (Manual) Eosinophils % (Manual) Basophils % (Manual) Seg Neutrophils # Seg Neutrophils # Man Lymphocytes # (Manual) Monocytes # (Manual) Eosinophils # (Manual) Nucleated RBC % Basophils # (Manual) PT INR APTT Heparin Anti-Xa Level ABG pH POC ABG pO2 ABG pO2 ABG HCO3 ABG O2 Saturation ABG Base Excess POC ABG pCO2 ABG Hemoglobin ABG Oxyhemoglobin ABG Chloride ABG Glucose Oxyhemoglobin Sodium Potassium Chloride 107.9 H Carbon Dioxide BUN 38 H Creatinine 0.6 L Glucose 151 H POC Glucose 123 H 152 H Lactic Acid Calcium Phosphorus Magnesium AST ALT Lactate Dehydrogenase Total Bilirubin Direct Bilirubin CK-MB (CK-2) C-Reactive Protein NT-Pro-B Natriuret Pep Total Protein Albumin Arterial Blood Glucose Urine WBC (Auto) Urine Creatinine 02/16/20 02/17/20 02/17/20 23:49 06:24 11:36 WBC RBC Hgb Hct MCHC RDW MCV MCH Lymph % (Auto) [place] % (Auto) [place] # Eos # Lymph # (Auto) [place] # (Auto) Eos # (Auto) Seg Neutrophils % Seg Neuts % (Manual) Baso # (Auto) Lymphocytes % (Manual) Monocytes % (Manual) Eosinophils % (Manual) Basophils % (Manual) Seg Neutrophils # Seg Neutrophils # Man Lymphocytes # (Manual) Monocytes # (Manual) Eosinophils # (Manual) Nucleated RBC % Basophils # (Manual) PT INR APTT Heparin Anti-Xa Level ABG pH POC ABG pO2 ABG pO2 ABG HCO3 ABG O2 Saturation ABG Base Excess POC ABG pCO2 ABG Hemoglobin ABG Oxyhemoglobin ABG Chloride ABG Glucose Oxyhemoglobin Sodium Potassium Chloride Carbon Dioxide BUN Creatinine Glucose POC Glucose 156 H 193 H 162 H Lactic Acid Calcium Phosphorus Magnesium AST ALT Lactate Dehydrogenase Total Bilirubin Direct Bilirubin CK-MB (CK-2) C-Reactive Protein NT-Pro-B Natriuret Pep Total Protein Albumin Arterial Blood Glucose Urine WBC (Auto) Urine Creatinine 02/17/20 02/17/20 02/18/20 17:55 23:28 05:11 WBC RBC Hgb Hct MCHC RDW MCV MCH Lymph % (Auto) Liberty % (Auto) Liberty # Eos # Lymph # (Auto) [place] # (Auto) Eos # (Auto) Seg Neutrophils % Seg Neuts % (Manual) Baso # (Auto) Lymphocytes % (Manual) Monocytes % (Manual) Eosinophils % (Manual) Basophils % (Manual) Seg Neutrophils # Seg Neutrophils # Man Lymphocytes # (Manual) Monocytes # (Manual) Eosinophils # (Manual) Nucleated RBC % Basophils # (Manual) PT INR APTT Heparin Anti-Xa Level ABG pH POC ABG pO2 ABG pO2 ABG HCO3 ABG O2 Saturation ABG Base Excess POC ABG pCO2 ABG Hemoglobin ABG Oxyhemoglobin ABG Chloride ABG Glucose Oxyhemoglobin Sodium Potassium Chloride Carbon Dioxide BUN Creatinine Glucose POC Glucose 165 H 146 H 122 H Lactic Acid Calcium Phosphorus Magnesium AST ALT Lactate Dehydrogenase Total Bilirubin Direct Bilirubin CK-MB (CK-2) C-Reactive Protein NT-Pro-B Natriuret Pep Total Protein Albumin Arterial Blood Glucose Urine WBC (Auto) Urine Creatinine Chest x-ray: pending Allied health notes reviewed: nursing
--- NOTE | 2020-02-18 11:47 | Progress Note ---
Subjective Date of service: 02/18/20 Principal diagnosis: Ac hypoxemic resp failure; Pneumonia; PUI COVID-19; CHF; COPD; HTN Interval history: Assessment and Plan - Patient Problems (1) Paroxysmal atrial fibrillation Current Visit: Yes Status: Acute Plan to address problem: Continue current management of atrial fibrillation, stable cardiac status. Subjective Date of service: 02/18/20 Principal diagnosis: Ac hypoxemic resp failure; Pneumonia; PUI COVID-19; CHF; COPD; HTN Interval history: Patient is asleep, on the vent via the trach. On property assessment monitor, he has a persistent atrial fibrillation with a well-controlled rate. Blood pressure is stable. No new recommendations today Objective Vital Signs Temp Pulse Pulse Resp BP Pulse Ox Pulse Ox 02/18/20 11:34 117 H 29 H 110/83 95 02/18/20 11:25 96 02/18/20 10:01 93 H 31 H 95/73 91 02/18/20 09:30 98 H 25 H 103/73 95 02/18/20 09:00 95 H 32 H 100/82 94 02/18/20 08:30 84 29 H 101/72 96 02/18/20 08:22 97 H 26 H 102/58 98 02/18/20 08:20 91 H 102/58 100 02/18/20 08:00 98.0 F 97 H 117 H 21 102/58 96 02/18/20 07:30 100 H 29 H 113/86 94 02/18/20 07:00 106 H 25 H 114/77 98 02/18/20 06:31 97 H 29 H 114/77 95 02/18/20 06:09 94 H 105/73 02/18/20 06:00 98 H 32 H 109/79 97 02/18/20 05:30 95 H 20 105/73 97 02/18/20 05:00 103 H 21 101/74 94 02/18/20 04:30 94 H 26 H 103/82 96 02/18/20 04:22 79 106/80 98 02/18/20 04:00 97.4 F L 91 H 23 106/80 92 02/18/20 03:47 110 H 110/99 02/18/20 03:41 100 H 23 98 02/18/20 03:40 100 H 02/18/20 03:31 100 H 27 H 110/90 02/18/20 03:00 88 26 H 107/80 98 02/18/20 02:30 93 H 26 H 108/74 100 02/18/20 02:00 89 28 H 110/74 02/18/20 01:33 99 02/18/20 01:30 98 H 21 116/81 97 02/18/20 01:00 94 H 24 108/70 02/18/20 00:31 92 H 26 H 108/73 02/18/20 00:02 100 H 113/89 02/18/20 00:00 109 H 94 H 25 H 113/89 98 02/17/20 23:50 97.4 F L 02/17/20 23:30 94 H 27 H 111/84 02/17/20 23:00 110 H 31 H 123/82 02/17/20 22:30 102 H 25 H 110/89 02/17/20 22:00 109 H 30 H 107/87 02/17/20 21:30 104 H 30 H 110/83 02/17/20 21:01 103 H 24 117/67 02/17/20 20:30 94 H 32 H 108/88 02/17/20 20:25 96 H 108/88 02/17/20 20:00 97.5 F L 98 H 118 H 30 H 104/89 94 02/17/20 19:31 89 17 104/80 94 02/17/20 19:00 88 28 H 106/82 95 02/17/20 18:31 79 28 H 105/81 95 02/17/20 18:30 86 27 H 105/81 96 02/17/20 18:19 95 H 124/82 02/17/20 18:00 104 H 28 H 124/82 95 02/17/20 17:31 95 H 28 H 122/78 95 02/17/20 17:20 91 H 115/84 96 02/17/20 17:00 88 27 H 115/84 94 02/17/20 16:30 103 H 24 125/86 93 02/17/20 16:16 114 H 108/84 02/17/20 16:00 97.5 F L 117 H 75 30 H 108/84 97 02/17/20 15:31 108 H 23 106/79 94 02/17/20 15:00 108 H 31 H 113/86 96 02/17/20 14:30 94 H 30 H 103/81 99 02/17/20 14:00 104 H 31 H 100/75 99 02/17/20 13:30 101 H 22 97/76 99 02/17/20 13:00 115 H 32 H 104/80 90 02/17/20 12:46 102 H 95/75 100 02/17/20 12:30 100 H 24 95/75 100 02/17/20 12:00 97.3 F L 104 H 92 H 27 H 110/73 98 - Physical Examination General: Other (s/p trach) HEENT: Positive: PERRL Neck: Positive: neck supple Cardiac: Positive: Reg Rate and Rhythm, S1/S2 Lungs: Positive: Normal Exam Neuro: Positive: Weakness Abdomen: Positive: Soft Skin: Positive: Clear Extremities: Absent: edema - Allied health notes Allied health notes reviewed: nursing
--- NOTE | 2020-02-18 11:50 | Progress Note ---
Assessment and Plan Assessment and plan: --Ischemic cardiomyopathy Cardiology is following, status post cardiac catheterization on 01/22/2020; Co ronary artery disease status post PCI and stent to the LAD Continue current cardiac medications --Acute on chronic hypoxemic respiratory failure; Patient has tracheostomy on vent Continue nebulizers, , trach care Wean off ventilator as tolerated Pulmonary critical following --Acute exacerbation of COPD; Patient is currently on ventilatory support Continue nebulizers --Left lower lobe PE; Continue Eliquis, ventilatory support --Acute right lower extremity DVT; Patient is on Eliquis --Bilateral multifocal pneumonia/community-acquired Completed antibiotics, improved --Severe sepsis/bilateral pneumonia: Completed antibiotics COVID-19 test; 11/24/2019; negative 11/26/2019; negative 12/29/2019: Negative --Paroxysmal atrial fibrillation; Now rate controlled, Stable on amiodarone and Eliquis --Acute on chronic combined systolic and diastolic congestive heart failure Ischemic cardiomyopathy left ventricular ejection fraction 40 to 45% --H/o CAD [[facility] 12/2018 in-stent restenosis] Patient is stable on current cardiac medications --Hypertensive emergency; present on admission Reasonable blood pressures, continue current antihypertensives As needed medications --History of alcohol abuse/alcohol withdrawal; Was on CIWA protocol, now stable --Oropharyngeal dysphagia; status post PEG placement Continue PEG feeds per protocol --History of partial small bowel obstruction; resolved Surgery evaluated. --Obesity; BMI 34.7 Patient needs weight reduction when medically stable --Severe protein calorie malnutrition/hypoalbuminemia Nutrition supplements, dietitian following, PEG feeds --DVT prophylaxis;Eliquis --Full CODE STATUS 01/05; Pt stable. NGT output 650cc over 24 hours, bilious. No f/c, WBC within normal limits. cont NG suction and cont to hold TF 01/06: Abs series - mild improvement in small bowel distension in mid abdomen, normal gas/stool pattern in colon. NGT in duodenum. Continue to hold tube feeding, maintain NG tube with low intermittent suction. Patient's was updated by phone. Continue to provide supportive care and monitor clinically. 01/07: +BMs today and NGT/PEG output appears more gastric today. Plan to clamp NGT, if tolerates start TF from tomorrow. cont supportive care. 01/08; Gastric output decreased over last 24 hours. NGT has been clamped x 24 hours. plan to dc NGT and to start TTF via PEG - vital HF @10cc/hr 01/09: clinically stable, tolerating TF. monitor BMP, wean off from vent as tolerated clinically stable, on TF. wean off vent as tolerated 01/11: wean off from vent, cont to monitor, on TF 01/12: wean off from vent, cont to monitor, on TF. need placement - unfunded 01/13; remains on ventilatory support, unable to wean, DC planning possible LTAC, unfunded 01/14; patient of ventilatory support, T-piece tracheostomy on oxygen, LTAC placement per case management 01/16; tracheostomy, patient on full ventilatory support, wean off vent support as tolerated, pending LTAC placement, social financial issues 01/17; awaiting LTAC placement, insurance and financial issues 01/18; patient tracheostomy remains on ventilatory support 01/19; wean off ventilator as tolerated 01/20; remains on ventilatory support, patient complains of intermittent chest pain, cardiology recommend left heart catheterization tomorrow 01/22/2020. Patient for left heart catheterization per cardiology. Patient remains on AC mode ventilation rate 12, tidal volume 450, FiO2 30% and PEEP of 6. Continue tracheostomy care, airway management and secretion control. 01/23/2020. Cardiac catheterization completed yesterday revealed widely patent previous LAD stent with mild nonobstructive atherosclerosis of the right mid coronary artery and rest of the coronary system was without significant atherosclerosis. The left ventricle ejection fraction was mildly impaired at 40 to 45%. There was some hypokinesis of the basal inferior wall suggestive of previous or recent infarct. Continue GDMT for coronary artery disease including beta blockers, topical nitrates, statin and Plavix. Continue Eliquis for paroxysmal atrial fibrillation and PE. Continue diuresis with Lasix and follow electrolytes closely. Continue Robinul and scopolamine for secretion control and daily SBT per pulmonary. Also, continue bronchodilators and routine trach care/airway management. T-piece trials per pulmonary as tolerated. 01/24/2020. Recent cardiac catheterization has documented widely patent left anterior descending artery stent with minimal nonobstructive diffuse coronary artery disease in the rest of the coronary arteries. Evidence of ischemic cardiomyopathy with inferior wall hypokinesis. Continue with guideline directed medical therapy. Continue Robinul and scopolamine for secretion control and daily SBT per pulmonary. Continue bronchodilators and routine trach care/airway management. T-piece trials per pulmonary as tolerated. 01/25/2020. Continue with guideline directed medical therapy for systolic heart failure. Cardiac catheterization revealed evidence of ischemic cardiomyopathy with inferior wall hypokinesis (EF 40-45%). Patient currently on T-piece with oxygen 10 L/min FiO2 40%. Continue Robinul and scopolamine for secretion control. Continue bronchodilators and routine trach care/airway management. 02/03: Mental status more improved, agree with Reglan will change to IV scheduled for two days, no new vomiting. Pseudomonas A in Sputum. 02/04: Clinical improving, amiodarone discontinued due to LFTs, continue Metoprolol.d/w GI, started on Golytely to clear impaction. Started on dialy Miralax. 02/05: Continue supportive care. Noted bowel movement, continue bowel regimen 02/06: Cardiology input noted beta-hebert increased for better suppression of atrial fibrillation. Continue to monitor, no other evidence of nausea vomiting noted. Discussed with respiratory therapist will be continued on weaning protocol with pressure support today. 02/07: Patient successfully weaned off the ventilator, No new complaints, c ontinue monitoring, BM noted, Discussed with pulmonary, 02/08; tracheostomy on T-piece, patient is more alert and awake today 02/09; clinically no change, tracheostomy on vent 02/10; tracheostomy on vent, full CODE STATUS, poor prognosis, 02/11; clinically no change, remains on ventilatory support, full CODE STATUS, discussed with spouse Ms. Paulette Araiza extensively today 02/12. Patient resting comfortably no change on vent with tracheostomy. Still unable to wean. Some increased crackles today. 02/13: Still unable to wean from the vent. Overall prognosis remains extremely poor. 02/14; remains critically ill, tracheostomy on vent, unable to wean, poor prognosis, full CODE STATUS 02/15; patient is more alert and awake today, chronic tracheostomy on T-piece, continue current management DC planning per case management. Disposition very difficult due to lack of resources and insurance 02/17/2020. Patient remains on mechanical ventilation and tolerating PSV trials. Patient currently with PSV 10/6 at FiO2 of 30%. 02/18/2020. Patient currently on PSV 10/6 with FiO2 of 40%. 40% T-piece trial was attempted but patient unable to tolerate due to saturations dropping into the 80s and heart rate in the 140s. Therefore, patient placed back on PSV. Continue anticoagulation with Eliquis. Continue secretion control with Robinul and scopolamine. Continue rate control with metoprolol and digoxin. The high probability of a clinically significant, sudden or life threatening deterioration of the [Respiratory, cardiovascular & neurological] system(s) required my full and direct attention, intervention and personal management. The aggregate critical care time was [33] minutes without overlap. Time includes spent on [x] Data Review and interpretation [x] Patient assessment and monitoring of vital signs [x] Documentation [x] Medication orders and management History Interval history: Patient is a 64-year-old male with known history of hypertension, COPD, history of coronary artery disease, CHF with ejection fraction of 20 to 25% 2019 was admitted through emergency room with worsening shortness of breath Patient was found to be hypoxic and in respiratory distress. Patient was placed on CPAP in route to the hospital. Patient remained hypoxic on CPAP BiPAP ,subsequently was intubated. Patient also had bilateral multifocal pneumonia managed appropriately with antibiotics sputum cultures positive for Pseudomonas, ID treated with cefepime and Vanco. His hospital course became complicated with acute PE, DVT, paroxysmal atrial fib - placed on chronic anticoagulation. Patient was difficult to wean off, status post trach and PEG, remains on mechanical ventilation with trach tube. He then developed partial small bowel obstruction evaluated by general surgeon symptom improved with medical Mx, patient was briefly weaned off ventilatory support however, was in respiratory failure requiring full ventilatory support. Cardiac catheterization on 01/22/2020. Patient remains on mechanical ventilatory support. Patients still with elevated heart rate of Afib with RVR continue amiodarone and metoprolol. LVEF 40 to 45% on Eliquis FOR THE Acute PE/DVT. Partial SBO vs ileus- KUB is negative. Will monitor, No further vomiting noted. If no improvement will repeat a chest xray to ensure no aspiration in the last 24 hrs. Hospitalist Physical - Constitutional Vitals: Temp Pulse Resp BP Pulse Ox 98.0 F 117 H 29 H 110/83 95 02/18/20 08:00 02/18/20 11:34 02/18/20 11:34 02/18/20 11:34 02/18/20 11:34 General appearance: Present: no acute distress, well-nourished, obese, other (Tracheostomy responds to simple questions appropriately) - EENT Eyes: Present: PERRL, EOM intact ENT: hearing intact, clear oral mucosa, dentition normal - Neck Neck: Present: supple, normal ROM - Respiratory Respiratory effort: normal Respiratory: bilateral: CTA - Cardiovascular Rhythm: regular Heart Sounds: Present: S1 & S2. Absent: gallop, rub - Extremities Extremities: no ischemia, No edema, Full ROM - Abdominal General gastrointestinal: soft, non-tender, non-distended, normal bowel sounds - Integumentary Integumentary: Present: clear, warm, dry - Neurologic Neurologic: CNII-XII intact, moves all extremities HEART Score - HEART Score Troponin: Troponin T < 0.010 ng/mL (0.00-0.029) 01/19/20 01:35 Results - Labs CBC & Chem 7: 02/15/20 06:59 02/16/20 07:53 Labs: Laboratory Last Values WBC 10.2 K/mm3 (4.5-11.0) 02/15/20 06:59 RBC 4.24 M/mm3 (3.65-5.03) 02/15/20 06:59 Hgb 10.4 gm/dl (11.8-15.2) L 02/15/20 06:59 Hct 33.7 % (35.5-45.6) L 02/15/20 06:59 MCV 80 fl (84-94) L 02/15/20 06:59 MCH 24 pg (28-32) L 02/15/20 06:59 MCHC 31 % (32-34) L 02/15/20 06:59 RDW 19.4 % (13.2-15.2) H 02/15/20 06:59 Plt Count 281 K/mm3 (140-440) 02/15/20 06:59 Lymph % (Auto) [employer] 02/15/20 06:59 [place] % (Auto) [employer] 02/15/20 06:59 Eos % (Auto) [employer] 02/15/20 06:59 Baso % (Auto) [employer] 02/15/20 06:59 Lymph # (Auto) [employer] 02/15/20 06:59 [place] # (Auto) [employer] 02/15/20 06:59 Eos # (Auto) [employer] 02/15/20 06:59 Baso # (Auto) [employer] 02/15/20 06:59 Add Manual Diff Complete 02/15/20 06:59 Total Counted 100 02/15/20 06:59 Seg Neutrophils % [employer] 02/15/20 06:59 Seg Neuts % (Manual) 58.0 % (40.0-70.0) 02/15/20 06:59 Band Neutrophils % 0 % 02/15/20 06:59 Lymphocytes % (Manual) 34.0 % (13.4-35.0) 02/15/20 06:59 Reactive Lymphs % (Man) 1.0 % 02/15/20 06:59 Monocytes % (Manual) 4.0 % (0.0-7.3) 02/15/20 06:59 Eosinophils % (Manual) 0 % (0.0-4.3) 02/15/20 06:59 Basophils % (Manual) 2.0 % (0.0-1.8) H 02/15/20 06:59 Metamyelocytes % 1.0 % 02/15/20 06:59 Myelocytes % 0 % 02/15/20 06:59 Promyelocytes % 0 % 02/15/20 06:59 Blast Cells % 0 % 02/15/20 06:59 Nucleated RBC % 1.0 % (0.0-0.9) H 02/15/20 06:59 Seg Neutrophils # [employer] 02/15/20 06:59 Seg Neutrophils # Man 5.9 K/mm3 (1.8-7.7) 02/15/20 06:59 Band Neutrophils # 0.0 K/mm3 02/15/20 06:59 Lymphocytes # (Manual) 3.5 K/mm3 (1.2-5.4) 02/15/20 06:59 Abs React Lymphs (Man) 0.1 K/mm3 02/15/20 06:59 Monocytes # (Manual) 0.4 K/mm3 (0.0-0.8) 02/15/20 06:59 Eosinophils # (Manual) 0.0 K/mm3 (0.0-0.4) 02/15/20 06:59 Basophils # (Manual) 0.2 K/mm3 (0.0-0.1) H 02/15/20 06:59 Metamyelocytes # 0.1 K/mm3 02/15/20 06:59 Myelocytes # 0.0 K/mm3 02/15/20 06:59 Promyelocytes # 0.0 K/mm3 02/15/20 06:59 Blast Cells # 0.0 K/mm3 02/15/20 06:59 WBC Morphology Not Reportable 02/15/20 06:59 Hypersegmented Neuts Not Reportable 02/15/20 06:59 Hyposegmented Neuts Not Reportable 02/15/20 06:59 Hypogranular Neuts Not Reportable 02/15/20 06:59 Smudge Cells Not Reportable 02/15/20 06:59 Toxic Granulation Not Reportable 02/15/20 06:59 Toxic Vacuolation Not Reportable 02/15/20 06:59 Dohle Bodies Not Reportable 02/15/20 06:59 Pelger-Huet Anomaly Not Reportable 02/15/20 06:59 Hector Rods Not Reportable 02/15/20 06:59 Platelet Estimate Consistent w auto 02/15/20 06:59 Clumped Platelets Not Reportable 02/15/20 06:59 Plt Clumps, EDTA Not Reportable 02/15/20 06:59 Large Platelets Not Reportable 02/15/20 06:59 Giant Platelets Not Reportable 02/15/20 06:59 Platelet Satelliting Not Reportable 02/15/20 06:59 Plt Morphology Comment Giant platelets 02/15/20 06:59 RBC Morphology Not Reportable 02/15/20 06:59 Dimorphic RBCs Not Reportable 02/15/20 06:59 Polychromasia Not Reportable 02/15/20 06:59 Hypochromasia 1+ 02/15/20 06:59 Poikilocytosis Few 02/15/20 06:59 Anisocytosis 1+ 02/15/20 06:59 Microcytosis Not Reportable 02/15/20 06:59 Macrocytosis Not Reportable 02/15/20 06:59 Spherocytes Not Reportable 02/15/20 06:59 Pappenheimer Bodies Not Reportable 02/15/20 06:59 Sickle Cells Not Reportable 02/15/20 06:59 Target Cells 1+ 02/15/20 06:59 Tear Drop Cells Few 02/15/20 06:59 Ovalocytes Not Reportable 02/15/20 06:59 Helmet Cells Not Reportable 02/15/20 06:59 Gottlieb-[place] Bodies Not Reportable 02/15/20 06:59 [place] Rings Not Reportable 02/15/20 06:59 Oc Cells Not Reportable 02/15/20 06:59 Bite Cells Not Reportable 02/15/20 06:59 Crenated Cell Not Reportable 02/15/20 06:59 Elliptocytes Few 02/15/20 06:59 Acanthocytes (Spur) Not Reportable 02/15/20 06:59 Rouleaux Not Reportable 02/15/20 06:59 Hemoglobin C Crystals Not Reportable 02/15/20 06:59 Schistocytes Not Reportable 02/15/20 06:59 Malaria parasites Not Reportable 02/15/20 06:59 Clifford Bodies Not Reportable 02/15/20 06:59 Hem Pathologist Commnt No 02/15/20 06:59 PT 27.0 Sec. (12.2-14.9) H 02/07/20 15:03 INR 2.46 (0.87-1.13) H 02/07/20 15:03 APTT 31.5 Sec. (24.2-36.6) 01/22/20 09:58 Heparin Anti-Xa Level 1.34 U.I./ml (0.3-0.7) H 01/22/20 04:45 ABG pH 7.502 (7.320-7.450) H 02/11/20 14:11 POC ABG pCO2 34.8 mmHg (32.0-48.0) 02/11/20 14:11 ABG pCO2 54.1 mm Hg 02/09/20 21:40 POC ABG pO2 77.7 mmHg (83-108) L 02/11/20 14:11 ABG pO2 59.8 mm Hg (80.0-90.0) L 02/09/20 21:40 POC ABG HCO3 26.7 02/11/20 14:11 ABG HCO3 33.3 mmol/L (20.0-26.0) H 02/09/20 21:40 ABG O2 Saturation 88.9 % (95.0-99.0) L 02/09/20 21:40 ABG O2 Content 12.7 (0.0-44) 02/09/20 21:40 POC ABG Base Excess 3.6 02/11/20 14:11 ABG Base Excess 7.4 mmol/L (-2.0-3.0) H 02/09/20 21:40 ABG Hemoglobin 11.1 (12.0-17.5) L 02/11/20 14:11 ABG Oxyhemoglobin 84 (94-98) L 12/22/19 03:22 ABG Carboxyhemoglobin 2.3 % (0.0-5.0) 02/09/20 21:40 ABG Methemoglobin 0.6 % (0.0-1.5) 02/09/20 21:40 ABG Sodium 144.7 mmol/L (136.0-145.0) 02/11/20 14:11 ABG Potassium 3.5 mmol/L (3.40-4.50) 02/11/20 14:11 ABG Chloride 108.0 mmol/L (98-107) H 02/11/20 14:11 ABG Glucose 151 mg/dL (65-95) H 02/11/20 14:11 Oxyhemoglobin 86.3 % (95.0-99.0) L 02/09/20 21:40 Carboxyhemoglobin 0.7 (0.5-1.5) 12/22/19 03:22 FiO2 30.0 02/11/20 14:11 Sodium 145 mmol/L (137-145) 02/16/20 07:53 Potassium 3.7 mmol/L (3.6-5.0) 02/16/20 07:53 Chloride 107.9 mmol/L (98-107) H 02/16/20 07:53 Carbon Dioxide 27 mmol/L (22-30) 02/16/20 07:53 Anion Gap 14 mmol/L 02/16/20 07:53 BUN 38 mg/dL (9-20) H 02/16/20 07:53 Creatinine 0.6 mg/dL (0.8-1.3) L 02/16/20 07:53 Estimated GFR > 60 ml/min 02/16/20 07:53 BUN/Creatinine Ratio 63 % 02/16/20 07:53 Glucose 151 mg/dL (75-100) H 02/16/20 07:53 POC Glucose 122 mg/dL (70-105) H 02/18/20 05:11 Lactic Acid 1.60 mmol/L (0.7-2.0) 02/03/20 12:49 Calcium 8.8 mg/dL (8.4-10.2) 02/16/20 07:53 Ferritin 84.4 ng/mL (30.0-300.0) 11/24/19 04:53 Phosphorus 4.10 mg/dL (2.5-4.5) 01/31/20 19:24 Magnesium 2.40 mg/dL (1.7-2.3) H 02/10/20 07:40 Total Bilirubin 1.30 mg/dL (0.1-1.2) H 02/08/20 19:00 Direct Bilirubin 0.9 mg/dL (0-0.2) H 02/08/20 19:00 Indirect Bilirubin 0.4 mg/dL 02/08/20 19:00 Total Creatine Kinase 141 units/L (55-170) 11/24/19 02:53 CK-MB (CK-2) 4.3 ng/mL (0.0-4.0) H 11/24/19 02:53 AST 309 units/L (5-40) H 02/08/20 19:00 ALT 650 units/L (7-56) H 02/08/20 19:00 CK-MB (CK-2) Rel Index 3.0 (0-4) 11/24/19 02:53 Alkaline Phosphatase 109 units/L (35-129) 02/08/20 19:00 C-Reactive Protein 8.50 mg/dL (0.00-1.30) H 12/01/19 12:16 Ammonia 35.0 umol/L (25-60) 02/03/20 12:49 Lactate Dehydrogenase 228 units/L (91-180) H 12/19/19 04:45 Troponin T < 0.010 ng/mL (0.00-0.029) 01/19/20 01:35 NT-Pro-B Natriuret Pep 3866 pg/mL (0-900) H 01/01/20 10:40 Total Protein 6.2 g/dL (6.3-8.2) L 02/08/20 19:00 Albumin 2.7 g/dL (3.9-5) L 02/08/20 19:00 Albumin/Globulin Ratio 0.8 % 02/08/20 19:00 Procalcitonin 0.44 ng/mL (<0.15) 02/03/20 12:49 Arterial Blood Glucose 151 mg/dL (65-95) H 02/11/20 14:11 Arterial Blood Ionized Calcium 4.7 mg/dL (4.6-5.3) 02/11/20 14:11 Urine Color Cecy (Yellow) 12/31/19 18:04 Urine Turbidity Clear (Clear) 12/31/19 18:04 Urine pH 5.0 (5.0-7.0) 12/31/19 18:04 Ur Specific [place] 1.023 (1.003-1.030) 12/31/19 18:04 Urine Protein <15 mg/dl mg/dL (Negative) 12/31/19 18:04 Urine Glucose (UA) Neg mg/dL (Negative) 12/31/19 18:04 Urine Ketones Neg mg/dL (Negative) 12/31/19 18:04 Urine Blood Neg (Negative) 12/31/19 18:04 Urine Bacteria (Auto) 1+ /HPF (Negative) 12/03/19 06:03 Urine Nitrite Neg (Negative) 12/31/19 18:04 Urine Bilirubin Neg (Negative) 12/31/19 18:04 Urine Urobilinogen 4.0 mg/dL (<2.0) 12/31/19 18:04 Ur Leukocyte Esterase Neg (Negative) 12/31/19 18:04 Urine WBC (Auto) 2.0 /HPF (0.0-6.0) 12/31/19 18:04 Urine RBC (Auto) 3.0 /HPF (0.0-6.0) 12/31/19 18:04 U Epithel Cells (Auto) 2.0 /HPF (0-13.0) 12/31/19 18:04 Urine Mucus 1+ /HPF 12/31/19 18:04 Urine Creatinine 57.4 mg/dL (0.1-20.0) H 01/31/20 Unknown Urine Sodium 59 mmol/L 01/31/20 Unknown Vancomycin Trough 14.2 ug/mL (5.0-20.0) 12/13/19 15:01 Coronavirus (PCR) Negative (Negative) 12/29/19 10:07 Hepatitis A IgM Ab Non-reactive (NonReactive) 02/05/20 06:37 Hep Bs Antigen Non-reactive (Negative) 02/05/20 06:37 Hep B Core IgM Ab Non-reactive (NonReactive) 02/05/20 06:37 Hepatitis C Antibody Non-reactive (NonReactive) 02/05/20 06:37 Blood Type O POSITIVE 01/21/20 13:00 Antibody Screen Negative 01/21/20 13:00 - Diagnostic Impressions Diagnostic Impressions: Echocardiogram 11/29/19 07:37 Transthoracic Echocardiogram Indication: CHF BP: 116/72 HR: 33 Conclusions *The study is technically limited due to poor acoustic windows. *Global left ventricular systolic function is normal. *The estimated ejection fraction is 50-55%. *Mild concentric left ventricular hypertrophy is observed. *There is trace of mitral regurgitation. *There is mild tricuspid regurgitation. Findings Procedure Info: The study quality is poor. The study is technically limited due to poor acoustic windows. The study is technically limited due to patient body habitus. Left Ventricle: The left ventricular chamber size is normal. Mild concentric left ventricular hypertrophy is observed. Global left ventricular systolic function is normal. The estimated ejection fraction is 50-55%. Left Atrium: The left atrial chamber size is normal. Right Ventricle: The right ventricular cavity size is normal. Right Atrium: The right atrial cavity size is normal. Aortic Valve: The aortic valve leaflets are moderately thickened. There is trace of aortic regurgitation. There is no evidence of aortic stenosis. Mitral Valve: The mitral valve leaflets are mildly thickened. There is trace of mitral regurgitation. There is no evidence of mitral stenosis. Tricuspid Valve: There is mild tricuspid regurgitation. No pulmonary hypertension is noted. Pulmonic Valve: There is trace pulmonic regurgitation. Pericardium: There is no pericardial effusion. Aorta: There is no dilatation of the aortic root. Venous: The inferior vena cava appears normal in size. Contrast: Definity was used to optimize study. Intravenous contrast was used to enhance endocardial border definition. Measurements Chambers 2D Name Value Normal Range Ao root diameter (2D) 3.4 cm (2 - 3.7) Aortic Valve Name Value Normal Range AV Vmax 0.98 m/sec - AV VTI 16.76 cm - AV peak gradient 3.83 mmHg - AV mean gradient 2.57 mmHg - LVOT diameter 3.11 cm - LVOT Vmax 0.68 m/sec - LVOT VTI 11.52 cm - LVOT peak gradient 1.84 mmHg - LVOT mean gradient 1.27 mmHg - SV LVOT 87.31 ml - MALOU (continuity Vmax) 5.24 cm2 - MALOU (continuity VTI) 5.21 cm2 - Tricuspid Valve Name Value Normal Range IVC diameter 2.24 cm (1.2 - 2.3) Hoffman/IV: Voiding Method Indwelling Catheter IV Catheter Type [Right INT / Saline Lock Forearm] IV Catheter Type [Right Hand] Peripheral IV IV Catheter Type [Right Upper INT / Saline Lock arm] IV Catheter Type [Left Upper Mid-line arm] IV Catheter Type [Left Forearm INT / Saline Lock ] IV Catheter Type [Left Hand] Peripheral IV IV Catheter Type [Left Wrist] INT / Saline Lock IV Catheter Type [Right Peripheral IV Antecubital] Active Medications - Current Medications Current Medications: Generic Name Dose Route Start Last Admin Trade Name Freq PRN Reason Stop Dose Admin Acetaminophen 650 mg 12/31/19 11:43 02/13/20 11:09 Tylenol FEEDTUBE 650 mg Q6H PRN Administration Pain, Mild (1-3) Lipase/Protease/Amylase 1 each 01/09/20 12:01 Pancreaztao Betancourt 10,500 Unit FEEDTUBE PRN PRN For Clogged Feeding Tube Apixaban 5 mg 01/22/20 22:00 02/18/20 09:39 Eliquis PO 5 mg Q12HR CAR Administration Protocol Atorvastatin Calcium 40 mg 01/20/20 22:00 02/18/20 03:48 Lipitor PO 40 mg QHS CAR Administration Clopidogrel Bisulfate 75 mg 01/21/20 06:00 02/18/20 09:39 Plavix PO 75 mg QDAY CAR Administration Dextrose 50 ml 01/31/20 18:51 02/05/20 00:56 D50w (25gm) Syringe IV 50 ml Q30MIN PRN Administration Hypoglycemia Protocol Digoxin 0.125 mg 02/10/20 17:00 02/17/20 16:16 Lanoxin IV 0.125 mg DAILY@1700 CAR Administration Glycopyrrolate 2 mg 01/26/20 20:00 02/18/20 07:48 Glycopyrrolate PO 2 mg TID CAR Administration Haloperidol Lactate 5 mg 02/10/20 14:20 02/17/20 04:49 Haldol IV 5 mg Q6H PRN Administration Agitation Hydrophilic Ointment 1 applic 01/17/20 15:26 Vaseline Lip Therapy TP DIRECT PRN Dry Lips Insulin Human Regular 0 unit 02/01/20 18:00 02/18/20 06:10 Humulin R SUB-Q Not Given Q6H [facility] Protocol Lansoprazole 30 mg 02/05/20 16:00 02/18/20 09:39 Prevacid Solutab FEEDTUBE 30 mg QDAY CAR Administration Metoprolol Tartrate 5 mg 01/11/20 08:00 02/16/20 22:00 Metoprolol IV 5 mg Q6H PRN Administration SEE INSTRUCTIONS Metoprolol Tartrate 50 mg 02/05/20 12:00 02/18/20 06:09 Metoprolol PO 50 mg Q6HR CAR Administration Midodrine 15 mg 02/04/20 16:00 02/18/20 07:48 Proamatine PO 15 mg TID@0800,1200,1600 CAR Administration Morphine Sulfate 2 mg 01/06/20 15:41 02/18/20 03:48 Morphine IV 2 mg Q4H PRN Administration Pain, Moderate (4-6) Multi-Ingred Cream/Lotion/Oil/Oint 1 applic 02/01/20 15:52 Artificial Tears Ophth Oint OU Q4HR PRN Dry Eye(s) Nitroglycerin 0.4 mg 01/19/20 21:09 01/20/20 03:03 Nitrostat SL 0.4 mg .Q5MIN PRN Administration Chest Pain Ondansetron HCl 4 mg 01/05/20 14:37 02/16/20 17:25 Zofran IV 4 mg Q8H PRN Administration Nausea And Vomiting Polyethylene Glycol 17 gm 12/04/19 22:00 02/18/20 03:55 Miralax 3350 PO 17 gm QHS CAR Administration Quetiapine Fumarate 300 mg 01/13/20 22:00 02/18/20 09:39 Seroquel PO 300 mg BID CAR Administration Scopolamine 1 each 01/07/20 20:00 01/07/20 21:08 Transderm-Scop TD 1 each Q72HR CAR Administration Simple Syrup 15 ml 01/09/20 12:01 Simple Syrup FEEDTUBE PRN PRN Hypoglycemia Simple Syrup 30 ml 01/09/20 12:01 Simple Syrup FEEDTUBE PRN PRN Hypoglycemia Sodium Bicarbonate 325 mg 01/09/20 12:01 Sodium Bicarbonate FEEDTUBE PRN PRN For Clogged Feeding Tube Sodium Chloride 10 ml 11/24/19 10:00 02/18/20 09:39 Sodium Chloride Flush Syringe 10 Ml IV 10 ml BID CAR Administration Tamsulosin HCl 0.8 mg 12/20/19 22:00 02/18/20 03:48 Flomax PO 0.8 mg QHS CAR Administration Nutrition/Malnutrition Assess - Dietary Evaluation Nutrition/Malnutrition Findings: Nutrition Notes Start: 11/24/19 12:22 Freq: Status: Active Protocol: Document 02/15/20 13:35 LP (Rec: 02/15/20 13:40 LP [id number]) Nutrition Notes Initial or Follow up Reassessment Current Diagnosis Coronary Artery Disease,Heart Failure,Respiratory Failure, Stroke,Hyperlipidemia Other Pertinent Diagnosis Partial SBO, pneu Current Diet Vital AF 1.2 at 75ml/hr Labs/Tests Na 149 BUN 40 Pertinent Medications Reviewed Height 6 ft 2 in Weight 110 kg [place] Body Weight (kg) 86.36 BMI 31.1 Weight change and time frame Wt change noted. Weight Status Obese Subjective/Other Information Trach site wound noted. Pt continues tolerating TF at goal rate. Percent of energy/protein needs met: 99%/100% Burn Absent Trauma Absent GI Symptoms None Current % PO Negligible Minimum of two criteria Yes Muscle Mass Mild Depletion (non-severe) Fluid Accumulation Mild (non-severe) Reduced [employer] Shift Strength Measurably Reduced (severe) #2 Nutrition Diagnosis Malnutrition Diagnosis Progress(for reassessment Continues documentation) #1 Nutrition Diagnosis Inadequate oral intake Diagnosis Progress(for reassessment Continues documentation) Is patient on ventilator? Yes Is Patient Ambulatory and/or Out of Bed No REE-([place] J[place]-confined to bed) 2362.428 Kcal/Kg value to use for calculation 20 Approximate Energy Requirements Using 2200 kcal/Kg Calculation Used for Recommendations Kcal/kg Additional Notes Protein needs are 117-147g (1. 2-1.5 g/kg AdBW of 97.78kg) Fluid needs are 1.5L Nutrition Intervention Change Diet Order: Continue TF via PEG Nutrition Support: Vital AF 1.2 at 75ml/hr. increase Flush 250ml q4h for hypernatremia Flush 100ml q4h once hypernatremia is resolved Kcal 2,160 Protein (gm) 135 Fluid (mL) 1,460 Goal #1 Meet at least 75% of pt's energy and protein needs Anticipated Discharge Needs: unable to determine Follow-Up By: 02/19/20 Additional Comments Follow for TF tolerance, Na
[2020-02-18] MEDS: DIGOXIN 0.5 MG/2 ML INJ IV SCH (16:20)
--- NOTE | 2020-02-18 18:12 | XRay Report ---
XR chest 1V ap INDICATION / CLINICAL INFORMATION: Aspiration. COMPARISON: 02/03/2020 FINDINGS: SUPPORT DEVICES: Tracheostomy device is stable. Enteric catheter has been removed. HEART /PULMONARY VASCULATURE: Cardiomegaly with pulmonary vasculature congestion. LUNGS / PLEURA: There are diffuse pulmonary airspace opacities, with worsening consolidation of the r ight lung base. Bibasilar pleural effusions are likely present. No pneumothorax. ADDITIONAL FINDINGS: No significant additional findings. IMPRESSION: 1. Worsening airspace disease, particularly within the right lower lobe. Signer Name: Henrique Goodrich MD Signed: 02/18/2020 6:07 PM Workstation Name: [id number]
[2020-02-19] MEDS: INSULIN REGULAR, HUMAN 100 UNIT/ML 3ML VIAL SUB-Q SCH ×4 (00:45→19:00)
[2020-02-19] MEDS: METOPROLOL TARTRATE 50 MG TAB PO SCH ×3 (00:45→12:52)
[2020-02-19] MEDS: MORPHINE 2 MG/1 ML INJ IV PRN ×2 (03:19→20:31)
[2020-02-19] MEDS: QUEtiapine 100 MG TAB PO SCH ×2 (09:03→21:42)
[2020-02-19] MEDS: MIDODRINE 5 MG TAB PO SCH ×3 (09:03→16:51)
[2020-02-19] MEDS: CLOPIDOGREL 75 MG TAB PO SCH (09:03)
[2020-02-19] MEDS: LANSOPRAZOLE 30 MG SOLUTAB FEEDTUBE SCH (09:04)
[2020-02-19] MEDS: APIXABAN 5 MG TAB PO SCH ×2 (09:04→21:42)
[2020-02-19] MEDS: GLYCOPYRROLATE 2 MG TAB PO SCH ×3 (09:06→21:42)
--- NOTE | 2020-02-19 10:01 | Progress Note ---
Assessment and Plan Assessment and plan: --Ischemic cardiomyopathy Cardiology is following, status post cardiac catheterization on 01/22/2020; Co ronary artery disease status post PCI and stent to the LAD Continue current cardiac medications --Acute on chronic hypoxemic respiratory failure; Patient has tracheostomy on vent Continue nebulizers, , trach care Wean off ventilator as tolerated Pulmonary critical following --Acute exacerbation of COPD; Patient is currently on ventilatory support Continue nebulizers --Left lower lobe PE; Continue Eliquis, ventilatory support --Acute right lower extremity DVT; Patient is on Eliquis --Bilateral multifocal pneumonia/community-acquired Completed antibiotics, improved --Severe sepsis/bilateral pneumonia: Completed antibiotics COVID-19 test; 11/24/2019; negative 11/26/2019; negative 12/29/2019: Negative --Paroxysmal atrial fibrillation; Now rate controlled, Stable on amiodarone and Eliquis --Acute on chronic combined systolic and diastolic congestive heart failure Ischemic cardiomyopathy left ventricular ejection fraction 40 to 45% --H/o CAD [[facility] 12/2018 in-stent restenosis] Patient is stable on current cardiac medications --Hypertensive emergency; present on admission Reasonable blood pressures, continue current antihypertensives As needed medications --History of alcohol abuse/alcohol withdrawal; Was on CIWA protocol, now stable --Oropharyngeal dysphagia; status post PEG placement Continue PEG feeds per protocol --History of partial small bowel obstruction; resolved Surgery evaluated. --Obesity; BMI 34.7 Patient needs weight reduction when medically stable --Severe protein calorie malnutrition/hypoalbuminemia Nutrition supplements, dietitian following, PEG feeds --DVT prophylaxis;Eliquis --Full CODE STATUS 01/05; Pt stable. NGT output 650cc over 24 hours, bilious. No f/c, WBC within normal limits. cont NG suction and cont to hold TF 01/06: Abs series - mild improvement in small bowel distension in mid abdomen, normal gas/stool pattern in colon. NGT in duodenum. Continue to hold tube feeding, maintain NG tube with low intermittent suction. Patient's was updated by phone. Continue to provide supportive care and monitor clinically. 01/07: +BMs today and NGT/PEG output appears more gastric today. Plan to clamp NGT, if tolerates start TF from tomorrow. cont supportive care. 01/08; Gastric output decreased over last 24 hours. NGT has been clamped x 24 hours. plan to dc NGT and to start TTF via PEG - vital HF @10cc/hr 01/09: clinically stable, tolerating TF. monitor BMP, wean off from vent as tolerated clinically stable, on TF. wean off vent as tolerated 01/11: wean off from vent, cont to monitor, on TF 01/12: wean off from vent, cont to monitor, on TF. need placement - unfunded 01/13; remains on ventilatory support, unable to wean, DC planning possible LTAC, unfunded 01/14; patient of ventilatory support, T-piece tracheostomy on oxygen, LTAC placement per case management 01/16; tracheostomy, patient on full ventilatory support, wean off vent support as tolerated, pending LTAC placement, social financial issues 01/17; awaiting LTAC placement, insurance and financial issues 01/18; patient tracheostomy remains on ventilatory support 01/19; wean off ventilator as tolerated 01/20; remains on ventilatory support, patient complains of intermittent chest pain, cardiology recommend left heart catheterization tomorrow 01/22/2020. Patient for left heart catheterization per cardiology. Patient remains on AC mode ventilation rate 12, tidal volume 450, FiO2 30% and PEEP of 6. Continue tracheostomy care, airway management and secretion control. 01/23/2020. Cardiac catheterization completed yesterday revealed widely patent previous LAD stent with mild nonobstructive atherosclerosis of the right mid coronary artery and rest of the coronary system was without significant atherosclerosis. The left ventricle ejection fraction was mildly impaired at 40 to 45%. There was some hypokinesis of the basal inferior wall suggestive of previous or recent infarct. Continue GDMT for coronary artery disease including beta blockers, topical nitrates, statin and Plavix. Continue Eliquis for paroxysmal atrial fibrillation and PE. Continue diuresis with Lasix and follow electrolytes closely. Continue Robinul and scopolamine for secretion control and daily SBT per pulmonary. Also, continue bronchodilators and routine trach care/airway management. T-piece trials per pulmonary as tolerated. 01/24/2020. Recent cardiac catheterization has documented widely patent left anterior descending artery stent with minimal nonobstructive diffuse coronary artery disease in the rest of the coronary arteries. Evidence of ischemic cardiomyopathy with inferior wall hypokinesis. Continue with guideline directed medical therapy. Continue Robinul and scopolamine for secretion control and daily SBT per pulmonary. Continue bronchodilators and routine trach care/airway management. T-piece trials per pulmonary as tolerated. 01/25/2020. Continue with guideline directed medical therapy for systolic heart failure. Cardiac catheterization revealed evidence of ischemic cardiomyopathy with inferior wall hypokinesis (EF 40-45%). Patient currently on T-piece with oxygen 10 L/min FiO2 40%. Continue Robinul and scopolamine for secretion control. Continue bronchodilators and routine trach care/airway management. 02/03: Mental status more improved, agree with Reglan will change to IV scheduled for two days, no new vomiting. Pseudomonas A in Sputum. 02/04: Clinical improving, amiodarone discontinued due to LFTs, continue Metoprolol.d/w GI, started on Golytely to clear impaction. Started on dialy Miralax. 02/05: Continue supportive care. Noted bowel movement, continue bowel regimen 02/06: Cardiology input noted beta-hebert increased for better suppression of atrial fibrillation. Continue to monitor, no other evidence of nausea vomiting noted. Discussed with respiratory therapist will be continued on weaning protocol with pressure support today. 02/07: Patient successfully weaned off the ventilator, No new complaints, c ontinue monitoring, BM noted, Discussed with pulmonary, 02/08; tracheostomy on T-piece, patient is more alert and awake today 02/09; clinically no change, tracheostomy on vent 02/10; tracheostomy on vent, full CODE STATUS, poor prognosis, 02/11; clinically no change, remains on ventilatory support, full CODE STATUS, discussed with spouse Ms. Paulette Araiza extensively today 02/12. Patient resting comfortably no change on vent with tracheostomy. Still unable to wean. Some increased crackles today. 02/13: Still unable to wean from the vent. Overall prognosis remains extremely poor. 02/14; remains critically ill, tracheostomy on vent, unable to wean, poor prognosis, full CODE STATUS 02/15; patient is more alert and awake today, chronic tracheostomy on T-piece, continue current management DC planning per case management. Disposition very difficult due to lack of resources and insurance 02/17/2020. Patient remains on mechanical ventilation and tolerating PSV trials. Patient currently with PSV 10/6 at FiO2 of 30%. 02/18/2020. Patient currently on PSV 10/6 with FiO2 of 40%. 40% T-piece trial was attempted but patient unable to tolerate due to saturations dropping into the 80s and heart rate in the 140s. Therefore, patient placed back on PSV. Continue anticoagulation with Eliquis. Continue secretion control with Robinul and scopolamine. Continue rate control with metoprolol and digoxin. 02/19/2020. Patient currently on PSV 10/6 with FiO2 of 30%. T-piece trial attempted yesterday but patient did not tolerate. Continue T-piece trials as tolerated. Continue anticoagulation with Eliquis. Continue secretion control with Robinul and scopolamine. Continue rate control with metoprolol and digoxin. Continue to follow with case management with regards to discharge pl anning. The high probability of a clinically significant, sudden or life threatening deterioration of the [Respiratory, cardiovascular & neurological] system(s) required my full and direct attention, intervention and personal management. The aggregate critical care time was [31] minutes without overlap. Time includes spent on [x] Data Review and interpretation [x] Patient assessment and monitoring of vital signs [x] Documentation [x] Medication orders and management History Interval history: Patient is a 64-year-old male with known history of hypertension, COPD, history of coronary artery disease, CHF with ejection fraction of 20 to 25% 2019 was admitted through emergency room with worsening shortness of breath Patient was found to be hypoxic and in respiratory distress. Patient was placed on CPAP in route to the hospital. Patient remained hypoxic on CPAP BiPAP ,subsequently was intubated. Patient also had bilateral multifocal pneumonia managed appropriately with antibiotics sputum cultures positive for Pseudomonas, ID treated with cefepime and Vanco. His hospital course became complicated with acute PE, DVT, paroxysmal atrial fib - placed on chronic anticoagulation. Patient was difficult to wean off, status post trach and PEG, remains on mechanical ventilation with trach tube. He then developed partial small bowel obstruction evaluated by general surgeon symptom improved with medical Mx, patient was briefly weaned off ventilatory support however, was in respiratory failure requiring full ventilatory support. Cardiac catheterization on 01/22/2020. Patient remains on mechanical ventilatory support. Patients still with elevated heart rate of Afib with RVR continue amiodarone and metoprolol. LVEF 40 to 45% on Eliquis FOR THE Acute PE/DVT. Partial SBO vs ileus- KUB is negative. Will monitor, No further vomiting noted. If no improvement will repeat a chest xray to ensure no aspiration in the last 24 hrs. Hospitalist Physical - Constitutional Vitals: Temp Pulse Resp BP Pulse Ox 97.5 F L 102 H 11 L 97/74 98 02/19/20 08:00 02/19/20 08:00 02/19/20 08:00 02/19/20 08:00 02/19/20 08:00 General appearance: Present: no acute distress, well-nourished, obese, other (Tracheostomy responds to simple questions appropriately) - EENT Eyes: Present: PERRL, EOM intact ENT: hearing intact, clear oral mucosa, dentition normal - Neck Neck: Present: supple, normal ROM - Respiratory Respiratory effort: normal Respiratory: bilateral: CTA - Cardiovascular Rhythm: regular Heart Sounds: Present: S1 & S2. Absent: gallop, rub - Extremities Extremities: no ischemia, No edema, Full ROM - Abdominal General gastrointestinal: soft, non-tender, non-distended, normal bowel sounds - Integumentary Integumentary: Present: clear, warm, dry - Neurologic Neurologic: CNII-XII intact, moves all extremities HEART Score - HEART Score Troponin: Troponin T < 0.010 ng/mL (0.00-0.029) 01/19/20 01:35 Results - Labs CBC & Chem 7: 02/15/20 06:59 02/16/20 07:53 Labs: Laboratory Last Values WBC 10.2 K/mm3 (4.5-11.0) 02/15/20 06:59 RBC 4.24 M/mm3 (3.65-5.03) 02/15/20 06:59 Hgb 10.4 gm/dl (11.8-15.2) L 02/15/20 06:59 Hct 33.7 % (35.5-45.6) L 02/15/20 06:59 MCV 80 fl (84-94) L 02/15/20 06:59 MCH 24 pg (28-32) L 02/15/20 06:59 MCHC 31 % (32-34) L 02/15/20 06:59 RDW 19.4 % (13.2-15.2) H 02/15/20 06:59 Plt Count 281 K/mm3 (140-440) 02/15/20 06:59 Lymph % (Auto) Uniformer 02/15/20 06:59 Chaves % (Auto) Uniformer 02/15/20 06:59 Eos % (Auto) Uniformer 02/15/20 06:59 Baso % (Auto) Uniformer 02/15/20 06:59 Lymph # (Auto) Uniformer 02/15/20 06:59 Chaves # (Auto) Uniformer 02/15/20 06:59 Eos # (Auto) Uniformer 02/15/20 06:59 Baso # (Auto) Uniformer 02/15/20 06:59 Add Manual Diff Complete 02/15/20 06:59 Total Counted 100 02/15/20 06:59 Seg Neutrophils % Uniformer 02/15/20 06:59 Seg Neuts % (Manual) 58.0 % (40.0-70.0) 02/15/20 06:59 Band Neutrophils % 0 % 02/15/20 06:59 Lymphocytes % (Manual) 34.0 % (13.4-35.0) 02/15/20 06:59 Reactive Lymphs % (Man) 1.0 % 02/15/20 06:59 Monocytes % (Manual) 4.0 % (0.0-7.3) 02/15/20 06:59 Eosinophils % (Manual) 0 % (0.0-4.3) 02/15/20 06:59 Basophils % (Manual) 2.0 % (0.0-1.8) H 02/15/20 06:59 Metamyelocytes % 1.0 % 02/15/20 06:59 Myelocytes % 0 % 02/15/20 06:59 Promyelocytes % 0 % 02/15/20 06:59 Blast Cells % 0 % 02/15/20 06:59 Nucleated RBC % 1.0 % (0.0-0.9) H 02/15/20 06:59 Seg Neutrophils # Uniformer 02/15/20 06:59 Seg Neutrophils # Man 5.9 K/mm3 (1.8-7.7) 02/15/20 06:59 Band Neutrophils # 0.0 K/mm3 02/15/20 06:59 Lymphocytes # (Manual) 3.5 K/mm3 (1.2-5.4) 02/15/20 06:59 Abs React Lymphs (Man) 0.1 K/mm3 02/15/20 06:59 Monocytes # (Manual) 0.4 K/mm3 (0.0-0.8) 02/15/20 06:59 Eosinophils # (Manual) 0.0 K/mm3 (0.0-0.4) 02/15/20 06:59 Basophils # (Manual) 0.2 K/mm3 (0.0-0.1) H 02/15/20 06:59 Metamyelocytes # 0.1 K/mm3 02/15/20 06:59 Myelocytes # 0.0 K/mm3 02/15/20 06:59 Promyelocytes # 0.0 K/mm3 02/15/20 06:59 Blast Cells # 0.0 K/mm3 02/15/20 06:59 WBC Morphology Not Reportable 02/15/20 06:59 Hypersegmented Neuts Not Reportable 02/15/20 06:59 Hyposegmented Neuts Not Reportable 02/15/20 06:59 Hypogranular Neuts Not Reportable 02/15/20 06:59 Smudge Cells Not Reportable 02/15/20 06:59 Toxic Granulation Not Reportable 02/15/20 06:59 Toxic Vacuolation Not Reportable 02/15/20 06:59 Dohle Bodies Not Reportable 02/15/20 06:59 Pelger-Huet Anomaly Not Reportable 02/15/20 06:59 Hector Rods Not Reportable 02/15/20 06:59 Platelet Estimate Consistent w auto 02/15/20 06:59 Clumped Platelets Not Reportable 02/15/20 06:59 Plt Clumps, EDTA Not Reportable 02/15/20 06:59 Large Platelets Not Reportable 02/15/20 06:59 Giant Platelets Not Reportable 02/15/20 06:59 Platelet Satelliting Not Reportable 02/15/20 06:59 Plt Morphology Comment Giant platelets 02/15/20 06:59 RBC Morphology Not Reportable 02/15/20 06:59 Dimorphic RBCs Not Reportable 02/15/20 06:59 Polychromasia Not Reportable 02/15/20 06:59 Hypochromasia 1+ 02/15/20 06:59 Poikilocytosis Few 02/15/20 06:59 Anisocytosis 1+ 02/15/20 06:59 Microcytosis Not Reportable 02/15/20 06:59 Macrocytosis Not Reportable 02/15/20 06:59 Spherocytes Not Reportable 02/15/20 06:59 Pappenheimer Bodies Not Reportable 02/15/20 06:59 Sickle Cells Not Reportable 02/15/20 06:59 Target Cells 1+ 02/15/20 06:59 Tear Drop Cells Few 02/15/20 06:59 Ovalocytes Not Reportable 02/15/20 06:59 Helmet Cells Not Reportable 02/15/20 06:59 [place] Bodies Not Reportable 02/15/20 06:59 [place] Rings Not Reportable 02/15/20 06:59 Oc Cells Not Reportable 02/15/20 06:59 Bite Cells Not Reportable 02/15/20 06:59 Crenated Cell Not Reportable 02/15/20 06:59 Elliptocytes Few 02/15/20 06:59 Acanthocytes (Spur) Not Reportable 02/15/20 06:59 Rouleaux Not Reportable 02/15/20 06:59 Hemoglobin C Crystals Not Reportable 02/15/20 06:59 Schistocytes Not Reportable 02/15/20 06:59 Malaria parasites Not Reportable 02/15/20 06:59 Clifford Bodies Not Reportable 02/15/20 06:59 Hem Pathologist Commnt No 02/15/20 06:59 PT 27.0 Sec. (12.2-14.9) H 02/07/20 15:03 INR 2.46 (0.87-1.13) H 02/07/20 15:03 APTT 31.5 Sec. (24.2-36.6) 01/22/20 09:58 Heparin Anti-Xa Level 1.34 U.I./ml (0.3-0.7) H 01/22/20 04:45 ABG pH 7.502 (7.320-7.450) H 02/11/20 14:11 POC ABG pCO2 34.8 mmHg (32.0-48.0) 02/11/20 14:11 ABG pCO2 54.1 mm Hg 02/09/20 21:40 POC ABG pO2 77.7 mmHg (83-108) L 02/11/20 14:11 ABG pO2 59.8 mm Hg (80.0-90.0) L 02/09/20 21:40 POC ABG HCO3 26.7 02/11/20 14:11 ABG HCO3 33.3 mmol/L (20.0-26.0) H 02/09/20 21:40 ABG O2 Saturation 88.9 % (95.0-99.0) L 02/09/20 21:40 ABG O2 Content 12.7 (0.0-44) 02/09/20 21:40 POC ABG Base Excess 3.6 02/11/20 14:11 ABG Base Excess 7.4 mmol/L (-2.0-3.0) H 02/09/20 21:40 ABG Hemoglobin 11.1 (12.0-17.5) L 02/11/20 14:11 ABG Oxyhemoglobin 84 (94-98) L 12/22/19 03:22 ABG Carboxyhemoglobin 2.3 % (0.0-5.0) 02/09/20 21:40 ABG Methemoglobin 0.6 % (0.0-1.5) 02/09/20 21:40 ABG Sodium 144.7 mmol/L (136.0-145.0) 02/11/20 14:11 ABG Potassium 3.5 mmol/L (3.40-4.50) 02/11/20 14:11 ABG Chloride 108.0 mmol/L (98-107) H 02/11/20 14:11 ABG Glucose 151 mg/dL (65-95) H 02/11/20 14:11 Oxyhemoglobin 86.3 % (95.0-99.0) L 02/09/20 21:40 Carboxyhemoglobin 0.7 (0.5-1.5) 12/22/19 03:22 FiO2 30.0 02/11/20 14:11 Sodium 145 mmol/L (137-145) 02/16/20 07:53 Potassium 3.7 mmol/L (3.6-5.0) 02/16/20 07:53 Chloride 107.9 mmol/L (98-107) H 02/16/20 07:53 Carbon Dioxide 27 mmol/L (22-30) 02/16/20 07:53 Anion Gap 14 mmol/L 02/16/20 07:53 BUN 38 mg/dL (9-20) H 02/16/20 07:53 Creatinine 0.6 mg/dL (0.8-1.3) L 02/16/20 07:53 Estimated GFR > 60 ml/min 02/16/20 07:53 BUN/Creatinine Ratio 63 % 02/16/20 07:53 Glucose 151 mg/dL (75-100) H 02/16/20 07:53 POC Glucose 116 mg/dL (70-105) H 02/19/20 05:53 Lactic Acid 1.60 mmol/L (0.7-2.0) 02/03/20 12:49 Calcium 8.8 mg/dL (8.4-10.2) 02/16/20 07:53 Ferritin 84.4 ng/mL (30.0-300.0) 11/24/19 04:53 Phosphorus 4.10 mg/dL (2.5-4.5) 01/31/20 19:24 Magnesium 2.40 mg/dL (1.7-2.3) H 02/10/20 07:40 Total Bilirubin 1.30 mg/dL (0.1-1.2) H 02/08/20 19:00 Direct Bilirubin 0.9 mg/dL (0-0.2) H 02/08/20 19:00 Indirect Bilirubin 0.4 mg/dL 02/08/20 19:00 Total Creatine Kinase 141 units/L (55-170) 11/24/19 02:53 CK-MB (CK-2) 4.3 ng/mL (0.0-4.0) H 11/24/19 02:53 AST 309 units/L (5-40) H 02/08/20 19:00 ALT 650 units/L (7-56) H 02/08/20 19:00 CK-MB (CK-2) Rel Index 3.0 (0-4) 11/24/19 02:53 Alkaline Phosphatase 109 units/L (35-129) 02/08/20 19:00 C-Reactive Protein 8.50 mg/dL (0.00-1.30) H 12/01/19 12:16 Ammonia 35.0 umol/L (25-60) 02/03/20 12:49 Lactate Dehydrogenase 228 units/L (91-180) H 12/19/19 04:45 Troponin T < 0.010 ng/mL (0.00-0.029) 01/19/20 01:35 NT-Pro-B Natriuret Pep 3866 pg/mL (0-900) H 01/01/20 10:40 Total Protein 6.2 g/dL (6.3-8.2) L 02/08/20 19:00 Albumin 2.7 g/dL (3.9-5) L 02/08/20 19:00 Albumin/Globulin Ratio 0.8 % 02/08/20 19:00 Procalcitonin 0.44 ng/mL (<0.15) 02/03/20 12:49 Arterial Blood Glucose 151 mg/dL (65-95) H 02/11/20 14:11 Arterial Blood Ionized Calcium 4.7 mg/dL (4.6-5.3) 02/11/20 14:11 Urine Color Cecy (Yellow) 12/31/19 18:04 Urine Turbidity Clear (Clear) 12/31/19 18:04 Urine pH 5.0 (5.0-7.0) 12/31/19 18:04 Ur Specific [place] 1.023 (1.003-1.030) 12/31/19 18:04 Urine Protein <15 mg/dl mg/dL (Negative) 12/31/19 18:04 Urine Glucose (UA) Neg mg/dL (Negative) 12/31/19 18:04 Urine Ketones Neg mg/dL (Negative) 12/31/19 18:04 Urine Blood Neg (Negative) 12/31/19 18:04 Urine Bacteria (Auto) 1+ /HPF (Negative) 12/03/19 06:03 Urine Nitrite Neg (Negative) 12/31/19 18:04 Urine Bilirubin Neg (Negative) 12/31/19 18:04 Urine Urobilinogen 4.0 mg/dL (<2.0) 12/31/19 18:04 Ur Leukocyte Esterase Neg (Negative) 12/31/19 18:04 Urine WBC (Auto) 2.0 /HPF (0.0-6.0) 12/31/19 18:04 Urine RBC (Auto) 3.0 /HPF (0.0-6.0) 12/31/19 18:04 U Epithel Cells (Auto) 2.0 /HPF (0-13.0) 12/31/19 18:04 Urine Mucus 1+ /HPF 12/31/19 18:04 Urine Creatinine 57.4 mg/dL (0.1-20.0) H 01/31/20 Unknown Urine Sodium 59 mmol/L 01/31/20 Unknown Vancomycin Trough 14.2 ug/mL (5.0-20.0) 12/13/19 15:01 Coronavirus (PCR) Negative (Negative) 12/29/19 10:07 Hepatitis A IgM Ab Non-reactive (NonReactive) 02/05/20 06:37 Hep Bs Antigen Non-reactive (Negative) 02/05/20 06:37 Hep B Core IgM Ab Non-reactive (NonReactive) 02/05/20 06:37 Hepatitis C Antibody Non-reactive (NonReactive) 02/05/20 06:37 Blood Type O POSITIVE 01/21/20 13:00 Antibody Screen Negative 01/21/20 13:00 - Diagnostic Impressions Diagnostic Impressions: Echocardiogram 11/29/19 07:37 Transthoracic Echocardiogram Indication: CHF BP: 116/72 HR: 33 Conclusions *The study is technically limited due to poor acoustic windows. *Global left ventricular systolic function is normal. *The estimated ejection fraction is 50-55%. *Mild concentric left ventricular hypertrophy is observed. *There is trace of mitral regurgitation. *There is mild tricuspid regurgitation. Findings Procedure Info: The study quality is poor. The study is technically limited due to poor acoustic windows. The study is technically limited due to patient body habitus. Left Ventricle: The left ventricular chamber size is normal. Mild concentric left ventricular hypertrophy is observed. Global left ventricular systolic function is normal. The estimated ejection fraction is 50-55%. Left Atrium: The left atrial chamber size is normal. Right Ventricle: The right ventricular cavity size is normal. Right Atrium: The right atrial cavity size is normal. Aortic Valve: The aortic valve leaflets are moderately thickened. There is trace of aortic regurgitation. There is no evidence of aortic stenosis. Mitral Valve: The mitral valve leaflets are mildly thickened. There is trace of mitral regurgitation. There is no evidence of mitral stenosis. Tricuspid Valve: There is mild tricuspid regurgitation. No pulmonary hypertension is noted. Pulmonic Valve: There is trace pulmonic regurgitation. Pericardium: There is no pericardial effusion. Aorta: There is no dilatation of the aortic root. Venous: The inferior vena cava appears normal in size. Contrast: Definity was used to optimize study. Intravenous contrast was used to enhance endocardial border definition. Measurements Chambers 2D Name Value Normal Range Ao root diameter (2D) 3.4 cm (2 - 3.7) Aortic Valve Name Value Normal Range AV Vmax 0.98 m/sec - AV VTI 16.76 cm - AV peak gradient 3.83 mmHg - AV mean gradient 2.57 mmHg - LVOT diameter 3.11 cm - LVOT Vmax 0.68 m/sec - LVOT VTI 11.52 cm - LVOT peak gradient 1.84 mmHg - LVOT mean gradient 1.27 mmHg - SV LVOT 87.31 ml - MALOU (continuity Vmax) 5.24 cm2 - MALOU (continuity VTI) 5.21 cm2 - Tricuspid Valve Name Value Normal Range IVC diameter 2.24 cm (1.2 - 2.3) Hoffman/IV: Voiding Method Indwelling Catheter IV Catheter Type [Right INT / Saline Lock Forearm] IV Catheter Type [Right Hand] Peripheral IV IV Catheter Type [Right Upper INT / Saline Lock arm] IV Catheter Type [Left Upper Mid-line arm] IV Catheter Type [Left Forearm INT / Saline Lock ] IV Catheter Type [Left Hand] Peripheral IV IV Catheter Type [Left Wrist] INT / Saline Lock IV Catheter Type [Right Peripheral IV Antecubital] Active Medications - Current Medications Current Medications: Generic Name Dose Route Start Last Admin Trade Name Freq PRN Reason Stop Dose Admin Acetaminophen 650 mg 12/31/19 11:43 02/13/20 11:09 Tylenol FEEDTUBE 650 mg Q6H PRN Administration Pain, Mild (1-3) Lipase/Protease/Amylase 1 each 01/09/20 12:01 Pancrepetr Betancourt 10,500 Unit FEEDTUBE PRN PRN For Clogged Feeding Tube Apixaban 5 mg 01/22/20 22:00 02/19/20 09:04 Eliquis PO 5 mg Q12HR CAR Administration Protocol Atorvastatin Calcium 40 mg 01/20/20 22:00 02/18/20 21:22 Lipitor PO 40 mg QHS CAR Administration Clopidogrel Bisulfate 75 mg 01/21/20 06:00 02/19/20 09:03 Plavix PO 75 mg QDAY CAR Administration Dextrose 50 ml 01/31/20 18:51 02/05/20 00:56 D50w (25gm) Syringe IV 50 ml Q30MIN PRN Administration Hypoglycemia Protocol Digoxin 0.125 mg 02/10/20 17:00 02/18/20 16:20 Lanoxin IV 0.125 mg DAILY@1700 [facility] Administration Glycopyrrolate 2 mg 01/26/20 20:00 02/19/20 09:06 Glycopyrrolate PO 2 mg TID [facility] Administration Haloperidol Lactate 5 mg 02/10/20 14:20 02/17/20 04:49 Haldol IV 5 mg Q6H PRN Administration Agitation Hydrophilic Ointment 1 applic 01/17/20 15:26 Vaseline Lip Therapy TP DIRECT PRN Dry Lips Insulin Human Regular 0 unit 02/01/20 18:00 02/19/20 05:59 Humulin R SUB-Q Not Given Q6H [facility] Protocol Lansoprazole 30 mg 02/05/20 16:00 02/19/20 09:04 Prevacid Solutab FEEDTUBE 30 mg QDAY [facility] Administration Metoprolol Tartrate 5 mg 01/11/20 08:00 02/16/20 22:00 Metoprolol IV 5 mg Q6H PRN Administration SEE INSTRUCTIONS Metoprolol Tartrate 50 mg 02/05/20 12:00 02/19/20 05:23 Metoprolol PO Not Given Q6HR [facility] Midodrine 15 mg 02/04/20 16:00 02/19/20 09:03 Proamatine PO 15 mg TID@0800,1200,1600 [facility] Administration Morphine Sulfate 2 mg 01/06/20 15:41 02/19/20 03:19 Morphine IV 2 mg Q4H PRN Administration Pain, Moderate (4-6) Multi-Ingred Cream/Lotion/Oil/Oint 1 applic 02/01/20 15:52 Artificial Tears Ophth Oint OU Q4HR PRN Dry Eye(s) Nitroglycerin 0.4 mg 01/19/20 21:09 01/20/20 03:03 Nitrostat SL 0.4 mg .Q5MIN PRN Administration Chest Pain Ondansetron HCl 4 mg 01/05/20 14:37 02/16/20 17:25 Zofran IV 4 mg Q8H PRN Administration Nausea And Vomiting Polyethylene Glycol 17 gm 12/04/19 22:00 02/18/20 21:21 Miralax 3350 PO Not Given [facility] Quetiapine Fumarate 300 mg 01/13/20 22:00 02/19/20 09:03 Seroquel PO 300 mg BID CAR Administration Scopolamine 1 each 01/07/20 20:00 01/07/20 21:08 Transderm-Scop TD 1 each Q72HR CAR Administration Simple Syrup 15 ml 01/09/20 12:01 Simple Syrup FEEDTUBE PRN PRN Hypoglycemia Simple Syrup 30 ml 01/09/20 12:01 Simple Syrup FEEDTUBE PRN PRN Hypoglycemia Sodium Bicarbonate 325 mg 01/09/20 12:01 Sodium Bicarbonate FEEDTUBE PRN PRN For Clogged Feeding Tube Sodium Chloride 10 ml 11/24/19 10:00 02/19/20 09:05 Sodium Chloride Flush Syringe 10 Ml IV 10 ml BID CAR Administration Tamsulosin HCl 0.8 mg 12/20/19 22:00 02/18/20 21:22 Flomax PO 0.8 mg QHS CAR Administration Nutrition/Malnutrition Assess - Dietary Evaluation Nutrition/Malnutrition Findings: Nutrition Notes Start: 11/24/19 12:22 Freq: Status: Active Protocol: Document 02/19/20 09:28 LP (Rec: 02/19/20 09:30 LP [id number]) Nutrition Notes Initial or Follow up Reassessment Current Diagnosis Coronary Artery Disease,Heart Failure,Respiratory Failure, Stroke,Hyperlipidemia Other Pertinent Diagnosis Partial SBO, pneu Current Diet Vital AF 1.2 at 75ml/hr Labs/Tests Na 145 02/16/20 Pertinent Medications Reviewed Height 6 ft 2 in Weight 115.9 kg [place] Body Weight (kg) 86.36 BMI 32.8 Weight change and time frame Wt change noted. Weight Status Obese Subjective/Other Information Pt continues tolerating TF at goal. Na now WNL. Percent of energy/protein needs met: 99%/100% Burn Absent Trauma Absent GI Symptoms None Current % PO Negligible Minimum of two criteria Yes Muscle Mass Mild Depletion (non-severe) Fluid Accumulation Mild (non-severe) Reduced [place] Strength Measurably Reduced (severe) #2 Nutrition Diagnosis Malnutrition Diagnosis Progress(for reassessment Continues documentation) #1 Nutrition Diagnosis Inadequate oral intake Diagnosis Progress(for reassessment Continues documentation) Is patient on ventilator? Yes Is Patient Ambulatory and/or Out of Bed No REE-([place]-St. Jeor-confined to bed) 2433.156 Kcal/Kg value to use for calculation 20 Approximate Energy Requirements Using 2318 kcal/Kg Calculation Used for Recommendations Kcal/kg Additional Notes Protein needs are 117-147g (1. 2-1.5 g/kg AdBW of 97.78kg) Fluid needs are 1.5L Nutrition Intervention Change Diet Order: Continue TF via PEG Nutrition Support: Vital AF 1.2 at 75ml/hr. increase Flush 250ml q4h for hypernatremia Flush 100ml q4h once hypernatremia is resolved Kcal 2,160 Protein (gm) 135 Fluid (mL) 1,460 Goal #1 Meet at least 75% of pt's energy and protein needs Goal #2 Weight maintenance Anticipated Discharge Needs: unable to determine at this time Follow-Up By: 02/26/20 Additional Comments Follow for stable TF
--- NOTE | 2020-02-19 10:21 | Progress Note ---
Subjective Date of service: 02/19/20 Principal diagnosis: Ac hypoxemic resp failure; Pneumonia; PUI COVID-19; CHF; COPD; HTN Interval history: Impression Afib still rate-controlled today Chest pain, resolved LHC done 01/22/20 widely patent previous LAD stent. We found mild nonobstructive atherosclerosis of the mid right coronary artery. Otherwise the rest of the coronary system was without significant atherosclerosis. LVEF 40 to 45%. There was some hypokinesis of the basal inferior wall suggestive of previous or recent infarct. ECG done 01/19/20 shows sinus rhythm with low voltage QRS and subtle ST segment elevations in the inferolateral leads that suggested possible concern for an acute injury at that time. Atrial fibrillation, paroxysmal on metoprolol and digoxin amiodarone discontinued due to liver transaminases Ischemic Cardiomyopathy re-echo this presentation reports an LVEF 40-45%. Hx of CAD Multifocal pneumonia negative COVID-19 test x 3 Chronic Respiratory failure s/p trach History of COPD Acute PE/DVT -on Eliquis Anemia Partial SBO vs ileus Recommend: Continue medical management for atrial fibrillation and coronary artery disease. Otherwise, conservative cardiac management. Objective Vital Signs Temp Pulse Pulse Resp BP Pulse Ox Pulse Ox 02/19/20 08:00 97.5 F L 100 H 102 H 21 97/74 100 02/19/20 07:54 102 H 23 115/84 97 02/19/20 07:51 99 H 115/84 98 02/19/20 07:30 100 H 20 115/84 95 02/19/20 07:00 100 H 21 104/74 99 02/19/20 06:30 85 12 99/72 99 02/19/20 06:00 85 17 94/70 98 02/19/20 05:30 86 16 94/70 95 02/19/20 05:00 87 18 100/78 98 02/19/20 04:33 87 98/69 98 02/19/20 04:30 82 18 100/78 97 02/19/20 04:24 98.8 F 02/19/20 04:00 87 81 16 112/79 97 02/19/20 03:30 90 18 112/75 95 02/19/20 03:00 113 H 25 H 116/82 91 02/19/20 02:30 92 H 19 110/77 97 02/19/20 02:00 103 H 16 98/63 96 02/19/20 01:30 87 16 98/63 93 02/19/20 01:00 98 H 21 99/64 96 02/19/20 00:30 87 15 123/79 96 02/19/20 00:25 98.6 F 02/19/20 00:17 97 H 123/79 95 02/19/20 00:00 97 H 84 16 102/76 97 97 02/18/20 23:30 103 H 21 91/62 98 02/18/20 23:00 82 17 91/62 96 02/18/20 22:30 79 18 99/62 94 02/18/20 22:00 76 14 120/69 93 02/18/20 21:30 88 24 120/69 94 02/18/20 21:11 109 H 22 96 02/18/20 21:01 85 26 H 111/73 96 02/18/20 20:58 93 H 25 H 116/84 97 02/18/20 20:36 88 116/84 98 02/18/20 20:31 94 H 23 116/84 90 02/18/20 20:00 98.6 F 92 H 88 25 H 94/69 96 02/18/20 19:30 75 20 94/72 95 02/18/20 19:01 84 21 94/73 96 02/18/20 18:30 101 H 25 H 102/78 94 02/18/20 18:12 95 02/18/20 18:11 80 111/74 96 02/18/20 18:00 89 21 111/74 96 02/18/20 17:44 97 H 103/74 02/18/20 17:30 85 26 H 103/74 94 02/18/20 17:00 99 H 27 H 97/71 94 02/18/20 16:30 99 H 28 H 117/70 93 02/18/20 16:20 92 H 109/65 02/18/20 16:00 98.5 F 88 81 21 109/65 95 02/18/20 15:31 94 H 25 H 111/70 95 02/18/20 15:01 88 26 H 116/65 96 02/18/20 14:34 111 H 104/71 97 02/18/20 14:30 95 H 25 H 104/71 02/18/20 14:00 104 H 25 H 94/69 96 02/18/20 13:30 107 H 29 H 103/78 94 02/18/20 13:00 109 H 26 H 100/76 94 02/18/20 12:33 93 H 99/70 02/18/20 12:30 102 H 27 H 100/76 97 02/18/20 12:01 103 H 25 H 119/70 90 02/18/20 12:00 98.1 F 135 H 88 30 H 95 02/18/20 11:34 117 H 29 H 110/83 95 02/18/20 11:31 97 H 30 H 110/83 96 02/18/20 11:25 96 02/18/20 11:00 89 23 90/62 94 02/18/20 10:30 86 25 H 95/59 94 - Physical Examination General: Other (s/p trach) HEENT: Positive: PERRL Neck: Positive: neck supple Cardiac: Positive: irregularly irregular Lungs: Positive: clear to auscultation Neuro: Positive: Weakness Abdomen: Positive: Soft Skin: Positive: Clear Extremities: Absent: edema - Allied health notes Allied health notes reviewed: nursing
--- NOTE | 2020-02-19 13:50 | Progress Note ---
Assessment and Plan Acute hypoxemic respiratory failure Bilateral pneumonia, community acquired. Acute LLL branch P.E. Acute DVT Person under investigation for COVID-19 infection. Acute congestive heart failure exacerbation. History of cerebrovascular accident. Acute chronic obstructive pulmonary disease exacerbation. Hypertension and hypertensive urgency at presentation. History of arthritis. Leukocytosis. Lactic acidosis. Oropharyngeal dysphagia - continue daily SAT's and SBT assessment as tolerated -Get CBC, BMP. CXR shows new infiltrate, if there is elevated WCC will get tracheal aspirate and initiate empiric antibiotics for HAP He has also had relative hypotension and has not had Metoprolol in jennifer last 24 hours -Stop metoprolol -PT/OT to treat, mobility- placed PT/OT consult -Hold off any further diuretic therapy while his blood pressure is "soft" - continue prn haldol for agitation to avoid hypoventilation - continue Flomax - Midodrine for blood pressure - prn mucomyst nebs re: secretions - continue full anticoagulation with Apixaban - continue seroquel for anxiolysis / delirium - continue to wean oxygen for O2 sats > 92% - continue bronchodilators with routine trach care and pulmonary hygiene per RT - continue Robinul & Scopolamine for secretion control - VAP bundle addressed (Aspiration precautions, HOB >40) - continue to wean per pulmonary driven protocols - continue prn analgesia per CPOT score - Avoid delirium (no benzodiazepines if they can be avoided) - Maintain sleep-wake cycle - enteral nutrition at goal rate as tolerated - continue accuchecks with glycemic control per SSI for target blood glucose goal of 140-180 mg/dL while critically ill; Avoid hypoglycemia - for VTE he is on IV Heparin - continue stress ulcer prophylaxis with Famotidine - continue mobility protocols for pressure ulcer prevention - continue fall precautions - continue wound care management per RN / WCT - Supportive transfusions to keep HgB>7g/dL - Continue to monitor neurologic function - Continue all supportive care ........ re-evaluate in am & prn CONDITION: CRITICAL PROGNOSIS: GUARDED CODE STATUS: FULL CODE The high probability of a clinically significant, sudden or life threatening deterioration of the [Respiratory, cardiovascular & neurological] system(s) required my full and direct attention, intervention and personal management. The aggregate critical care time was [32] minutes without overlap. Time includes spent on [x] Data Review and interpretation [x] Patient assessment and monitoring of vital signs [x] Documentation [x] Medication orders and management Subjective Date of service: 02/19/20 Principal diagnosis: Ac hypoxemic resp failure; Pneumonia; PUI COVID-19; CHF; COPD; HTN Interval history: Patient is seen today for: Acute hypoxemic respiratory failure; Adan. Pneumonia (CAP); PUI COVID-19 infection; AE-CHF; AE-COPD; H/O CVA; HTN; PE, DVT Seen and examined at bedside; 24 hour events reviewed; nursing and respiratory care staff consulted; no adverse overnight events reported to me; resting peacefully in bed; s/p trach on full support, awake and alert ,tolerating tube feedings. Vent PSV 10/6 Size#6 Shiley, Mouths words to make needs known, is interactive No fevers, states he can't catch his breath Reported low blood pressure Objective Vital Signs - 12hr 02/19/20 02/19/20 02/19/20 02:00 02:30 03:00 Temperature Pulse Rate 103 H 92 H 113 H Pulse Rate [ From Monitor] Respiratory 16 19 25 H Rate Blood Pressure 98/63 110/77 116/82 O2 Sat by Pulse 96 97 91 Oximetry 02/19/20 02/19/20 02/19/20 03:30 04:00 04:24 Temperature 98.8 F Pulse Rate 90 87 Pulse Rate [ 81 From Monitor] Respiratory 18 16 Rate Blood Pressure 112/75 112/79 O2 Sat by Pulse 95 97 Oximetry 02/19/20 02/19/20 02/19/20 04:30 04:33 05:00 Temperature Pulse Rate 82 87 87 Pulse Rate [ From Monitor] Respiratory 18 18 Rate Blood Pressure 100/78 98/69 100/78 O2 Sat by Pulse 97 98 98 Oximetry 02/19/20 02/19/20 02/19/20 05:30 06:00 06:30 Temperature Pulse Rate 86 85 85 Pulse Rate [ From Monitor] Respiratory 16 17 12 Rate Blood Pressure 94/70 94/70 99/72 O2 Sat by Pulse 95 98 99 Oximetry 02/19/20 02/19/20 02/19/20 07:00 07:30 07:51 Temperature Pulse Rate 100 H 100 H 99 H Pulse Rate [ From Monitor] Respiratory 21 20 Rate Blood Pressure 104/74 115/84 115/84 O2 Sat by Pulse 99 95 98 Oximetry 02/19/20 02/19/20 02/19/20 07:54 08:00 08:30 Temperature 97.5 F L Pulse Rate 102 H 100 H 101 H Pulse Rate [ 102 H From Monitor] Respiratory 23 21 9 L Rate Blood Pressure 115/84 97/74 107/83 O2 Sat by Pulse 97 100 96 Oximetry 02/19/20 02/19/20 02/19/20 09:00 09:30 10:00 Temperature Pulse Rate 88 93 H 92 H Pulse Rate [ From Monitor] Respiratory 16 14 10 L Rate Blood Pressure 115/77 108/78 106/86 O2 Sat by Pulse 97 99 96 Oximetry 02/19/20 02/19/20 02/19/20 10:30 11:00 11:12 Temperature Pulse Rate 91 H 93 H 87 Pulse Rate [ From Monitor] Respiratory 15 18 16 Rate Blood Pressure 111/85 111/85 103/78 O2 Sat by Pulse 94 98 98 Oximetry 02/19/20 02/19/20 11:30 12:00 Temperature 98.4 F Pulse Rate 81 115 H Pulse Rate [ 110 H From Monitor] Respiratory 15 9 L Rate Blood Pressure 93/64 93/64 O2 Sat by Pulse 97 100 Oximetry Constitutional: alert, other (elelelderly and obese male, normocephalic with mildly increased respiratory effort at rest) Eyes: non-icteric ENT: oropharynx moist, other (+ midline tracheostomy) Neck: supple, no JVD Effort: mildly labored Ascultation: Bilateral: clear, diminished breath sounds, rhonchi Percussion: Bilateral: not dull Cardiovascular: irregular rhythm Gastrointestinal: normoactive bowel sounds, soft, non-tender, non-distended (protuberant), other (protuberant; PEG in place) Integumentary: normal Extremities: no cyanosis, pulses normal, no ischemia or petechiae, edema (bilateral lower) Neurologic: non-focal exam (moves extremities), pupils equal and round, other (intermittent agitation) Psychiatric: anxious CBC and BMP: 02/15/20 06:59 02/16/20 07:53 ABG, PT/INR, D-dimer: ABG ABG pH 7.502 (7.320-7.450) H 02/11/20 14:11 POC ABG pCO2 34.8 mmHg (32.0-48.0) 02/11/20 14:11 ABG pCO2 54.1 mm Hg 02/09/20 21:40 POC ABG pO2 77.7 mmHg (83-108) L 02/11/20 14:11 ABG pO2 59.8 mm Hg (80.0-90.0) L 02/09/20 21:40 POC ABG HCO3 26.7 02/11/20 14:11 ABG O2 Saturation 88.9 % (95.0-99.0) L 02/09/20 21:40 PT/INR, D-dimer PT 27.0 Sec. (12.2-14.9) H 02/07/20 15:03 INR 2.46 (0.87-1.13) H 02/07/20 15:03 Abnormal lab findings: Abnormal Labs 11/24/19 11/24/19 11/24/19 02:53 02:53 03:45 WBC 14.3 H RBC Hgb Hct MCHC RDW 17.2 H MCV MCH Lymph % (Auto) [facility] % (Auto) [facility] # Eos # Lymph # (Auto) [facility] # (Auto) Eos # (Auto) Seg Neutrophils % Seg Neuts % (Manual) Baso # (Auto) Lymphocytes % (Manual) Monocytes % (Manual) Eosinophils % (Manual) Basophils % (Manual) Seg Neutrophils # Seg Neutrophils # Man 8.3 H Lymphocytes # (Manual) Monocytes # (Manual) 0.9 H Eosinophils # (Manual) Nucleated RBC % Basophils # (Manual) PT INR APTT Heparin Anti-Xa Level ABG pH 7.313 L POC ABG pO2 ABG pO2 102.8 H ABG HCO3 ABG O2 Saturation ABG Base Excess -2.9 L POC ABG pCO2 ABG Hemoglobin ABG Oxyhemoglobin ABG Chloride ABG Glucose Oxyhemoglobin 93.9 L Sodium Potassium Chloride Carbon Dioxide BUN Creatinine Glucose 195 H POC Glucose Lactic Acid Calcium Phosphorus Magnesium AST ALT Lactate Dehydrogenase Total Bilirubin Direct Bilirubin CK-MB (CK-2) 4.3 H C-Reactive Protein NT-Pro-B Natriuret Pep 1181 H Total Protein Albumin Arterial Blood Glucose Urine WBC (Auto) Urine Creatinine 11/24/19 11/24/19 11/24/19 04:53 04:53 10:37 WBC RBC Hgb Hct MCHC RDW MCV MCH Lymph % (Auto) [facility] % (Auto) [facility] # Eos # Lymph # (Auto) [facility] # (Auto) Eos # (Auto) Seg Neutrophils % Seg Neuts % (Manual) Baso # (Auto) Lymphocytes % (Manual) Monocytes % (Manual) Eosinophils % (Manual) Basophils % (Manual) Seg Neutrophils # Seg Neutrophils # Man Lymphocytes # (Manual) Monocytes # (Manual) Eosinophils # (Manual) Nucleated RBC % Basophils # (Manual) PT INR APTT Heparin Anti-Xa Level ABG pH POC ABG pO2 ABG pO2 ABG HCO3 ABG O2 Saturation ABG Base Excess POC ABG pCO2 ABG Hemoglobin ABG Oxyhemoglobin ABG Chloride ABG Glucose Oxyhemoglobin Sodium Potassium Chloride Carbon Dioxide BUN Creatinine Glucose 162 H POC Glucose Lactic Acid 2.40 H* 2.50 H* Calcium Phosphorus Magnesium AST ALT Lactate Dehydrogenase 240 H Total Bilirubin Direct Bilirubin CK-MB (CK-2) C-Reactive Protein NT-Pro-B Natriuret Pep Total Protein Albumin Arterial Blood Glucose Urine WBC (Auto) Urine Creatinine 11/24/19 11/24/19 11/24/19 12:21 14:50 19:54 WBC RBC Hgb Hct MCHC RDW MCV MCH Lymph % (Auto) [facility] % (Auto) [facility] # Eos # Lymph # (Auto) [facility] # (Auto) Eos # (Auto) Seg Neutrophils % Seg Neuts % (Manual) Baso # (Auto) Lymphocytes % (Manual) Monocytes % (Manual) Eosinophils % (Manual) Basophils % (Manual) Seg Neutrophils # Seg Neutrophils # Man Lymphocytes # (Manual) Monocytes # (Manual) Eosinophils # (Manual) Nucleated RBC % Basophils # (Manual) PT INR APTT Heparin Anti-Xa Level ABG pH POC ABG pO2 ABG pO2 ABG HCO3 ABG O2 Saturation ABG Base Excess POC ABG pCO2 ABG Hemoglobin ABG Oxyhemoglobin ABG Chloride ABG Glucose Oxyhemoglobin Sodium Potassium Chloride Carbon Dioxide BUN Creatinine Glucose POC Glucose 145 H 143 H 124 H Lactic Acid Calcium Phosphorus Magnesium AST ALT Lactate Dehydrogenase Total Bilirubin Direct Bilirubin CK-MB (CK-2) C-Reactive Protein NT-Pro-B Natriuret Pep Total Protein Albumin Arterial Blood Glucose Urine WBC (Auto) Urine Creatinine 11/25/19 11/25/19 11/25/19 00:18 03:18 05:11 WBC 13.7 H RBC Hgb Hct MCHC RDW 17.1 H MCV MCH Lymph % (Auto) 10.[address] [facility] % (Auto) 8.[address] [facility] # 1.2 H Eos # Lymph # (Auto) [facility] # (Auto) Eos # (Auto) Seg Neutrophils % 80.2 H Seg Neuts % (Manual) Baso # (Auto) Lymphocytes % (Manual) Monocytes % (Manual) Eosinophils % (Manual) Basophils % (Manual) Seg Neutrophils # 11.0 H Seg Neutrophils # Man Lymphocytes # (Manual) Monocytes # (Manual) Eosinophils # (Manual) Nucleated RBC % Basophils # (Manual) PT INR APTT Heparin Anti-Xa Level ABG pH 7.333 L POC ABG pO2 ABG pO2 61.2 L ABG HCO3 ABG O2 Saturation 90.2 L ABG Base Excess POC ABG pCO2 ABG Hemoglobin 13.7 L ABG Oxyhemoglobin ABG Chloride ABG Glucose Oxyhemoglobin 88.2 L Sodium Potassium Chloride Carbon Dioxide BUN Creatinine Glucose POC Glucose 109 H Lactic Acid Calcium Phosphorus Magnesium AST ALT Lactate Dehydrogenase Total Bilirubin Direct Bilirubin CK-MB (CK-2) C-Reactive Protein NT-Pro-B Natriuret Pep Total Protein Albumin Arterial Blood Glucose Urine WBC (Auto) Urine Creatinine 11/25/19 11/25/19 11/26/19 05:11 11:40 03:12 WBC RBC Hgb Hct MCHC RDW MCV MCH Lymph % (Auto) [facility] % (Auto) [facility] # Eos # Lymph # (Auto) [facility] # (Auto) Eos # (Auto) Seg Neutrophils % Seg Neuts % (Manual) Baso # (Auto) Lymphocytes % (Manual) Monocytes % (Manual) Eosinophils % (Manual) Basophils % (Manual) Seg Neutrophils # Seg Neutrophils # Man Lymphocytes # (Manual) Monocytes # (Manual) Eosinophils # (Manual) Nucleated RBC % Basophils # (Manual) PT INR APTT Heparin Anti-Xa Level ABG pH POC ABG pO2 ABG pO2 155.1 H ABG HCO3 27.8 H ABG O2 Saturation ABG Base Excess POC ABG pCO2 ABG Hemoglobin 12.2 L ABG Oxyhemoglobin ABG Chloride ABG Glucose Oxyhemoglobin Sodium Potassium Chloride Carbon Dioxide BUN 23 H Creatinine Glucose 110 H POC Glucose 108 H Lactic Acid Calcium Phosphorus Magnesium AST ALT Lactate Dehydrogenase Total Bilirubin Direct Bilirubin CK-MB (CK-2) C-Reactive Protein NT-Pro-B Natriuret Pep Total Protein Albumin Arterial Blood Glucose Urine WBC (Auto) Urine Creatinine 11/26/19 11/26/19 11/26/19 06:17 10:43 10:43 WBC 11.4 H RBC Hgb Hct MCHC RDW 17.1 H MCV MCH Lymph % (Auto) [facility] % (Auto) [facility] # Eos # Lymph # (Auto) [facility] # (Auto) Eos # (Auto) Seg Neutrophils % Seg Neuts % (Manual) Baso # (Auto) Lymphocytes % (Manual) Monocytes % (Manual) Eosinophils % (Manual) Basophils % (Manual) Seg Neutrophils # Seg Neutrophils # Man Lymphocytes # (Manual) Monocytes # (Manual) Eosinophils # (Manual) Nucleated RBC % Basophils # (Manual) PT INR APTT Heparin Anti-Xa Level ABG pH POC ABG pO2 ABG pO2 ABG HCO3 ABG O2 Saturation ABG Base Excess POC ABG pCO2 ABG Hemoglobin ABG Oxyhemoglobin ABG Chloride ABG Glucose Oxyhemoglobin Sodium Potassium Chloride Carbon Dioxide BUN 29 H Creatinine Glucose POC Glucose 107 H Lactic Acid Calcium Phosphorus Magnesium AST ALT Lactate Dehydrogenase Total Bilirubin Direct Bilirubin CK-MB (CK-2) C-Reactive Protein NT-Pro-B Natriuret Pep Total Protein Albumin Arterial Blood Glucose Urine WBC (Auto) Urine Creatinine 11/26/19 11/27/19 11/27/19 17:11 01:53 04:11 WBC RBC Hgb Hct MCHC RDW MCV MCH Lymph % (Auto) [facility] % (Auto) [facility] # Eos # Lymph # (Auto) [facility] # (Auto) Eos # (Auto) Seg Neutrophils % Seg Neuts % (Manual) Baso # (Auto) Lymphocytes % (Manual) Monocytes % (Manual) Eosinophils % (Manual) Basophils % (Manual) Seg Neutrophils # Seg Neutrophils # Man Lymphocytes # (Manual) Monocytes # (Manual) Eosinophils # (Manual) Nucleated RBC % Basophils # (Manual) PT INR APTT Heparin Anti-Xa Level ABG pH POC ABG pO2 ABG pO2 ABG HCO3 29.2 H ABG O2 Saturation ABG Base Excess 3.4 H POC ABG pCO2 ABG Hemoglobin 13.3 L ABG Oxyhemoglobin ABG Chloride ABG Glucose Oxyhemoglobin 94.5 L Sodium Potassium Chloride Carbon Dioxide BUN Creatinine Glucose POC Glucose 113 H 108 H Lactic Acid Calcium Phosphorus Magnesium AST ALT Lactate Dehydrogenase Total Bilirubin Direct Bilirubin CK-MB (CK-2) C-Reactive Protein NT-Pro-B Natriuret Pep Total Protein Albumin Arterial Blood Glucose Urine WBC (Auto) Urine Creatinine 11/27/19 11/28/19 11/28/19 05:27 05:00 05:25 WBC RBC Hgb Hct MCHC RDW MCV MCH Lymph % (Auto) [facility] % (Auto) [facility] # Eos # Lymph # (Auto) [facility] # (Auto) Eos # (Auto) Seg Neutrophils % Seg Neuts % (Manual) Baso # (Auto) Lymphocytes % (Manual) Monocytes % (Manual) Eosinophils % (Manual) Basophils % (Manual) Seg Neutrophils # Seg Neutrophils # Man Lymphocytes # (Manual) Monocytes # (Manual) Eosinophils # (Manual) Nucleated RBC % Basophils # (Manual) PT INR APTT Heparin Anti-Xa Level ABG pH POC ABG pO2 68.1 L ABG pO2 ABG HCO3 ABG O2 Saturation ABG Base Excess POC ABG pCO2 ABG Hemoglobin ABG Oxyhemoglobin 91.2 L ABG Chloride ABG Glucose Oxyhemoglobin Sodium Potassium Chloride Carbon Dioxide BUN Creatinine Glucose POC Glucose 111 H 110 H Lactic Acid Calcium Phosphorus Magnesium AST ALT Lactate Dehydrogenase Total Bilirubin Direct Bilirubin CK-MB (CK-2) C-Reactive Protein NT-Pro-B Natriuret Pep Total Protein Albumin Arterial Blood Glucose Urine WBC (Auto) Urine Creatinine 11/28/19 11/28/19 11/28/19 12:08 13:47 13:47 WBC 11.3 H RBC Hgb Hct MCHC RDW 16.1 H MCV MCH Lymph % (Auto) [facility] % (Auto) 9.[address] [facility] # 1.1 H Eos # Lymph # (Auto) [facility] # (Auto) Eos # (Auto) Seg Neutrophils % 71.4 H Seg Neuts % (Manual) Baso # (Auto) Lymphocytes % (Manual) Monocytes % (Manual) Eosinophils % (Manual) Basophils % (Manual) Seg Neutrophils # 8.1 H Seg Neutrophils # Man Lymphocytes # (Manual) Monocytes # (Manual) Eosinophils # (Manual) Nucleated RBC % Basophils # (Manual) PT INR APTT Heparin Anti-Xa Level ABG pH POC ABG pO2 ABG pO2 ABG HCO3 ABG O2 Saturation ABG Base Excess POC ABG pCO2 ABG Hemoglobin ABG Oxyhemoglobin ABG Chloride ABG Glucose Oxyhemoglobin Sodium Potassium Chloride Carbon Dioxide BUN 23 H Creatinine Glucose 123 H POC Glucose 112 H Lactic Acid Calcium Phosphorus Magnesium AST ALT Lactate Dehydrogenase Total Bilirubin Direct Bilirubin CK-MB (CK-2) C-Reactive Protein NT-Pro-B Natriuret Pep Total Protein Albumin 3.7 L Arterial Blood Glucose Urine WBC (Auto) Urine Creatinine 11/28/19 11/29/19 11/29/19 17:26 03:55 17:04 WBC RBC Hgb Hct MCHC RDW MCV MCH Lymph % (Auto) [facility] % (Auto) [facility] # Eos # Lymph # (Auto) [facility] # (Auto) Eos # (Auto) Seg Neutrophils % Seg Neuts % (Manual) Baso # (Auto) Lymphocytes % (Manual) Monocytes % (Manual) Eosinophils % (Manual) Basophils % (Manual) Seg Neutrophils # Seg Neutrophils # Man Lymphocytes # (Manual) Monocytes # (Manual) Eosinophils # (Manual) Nucleated RBC % Basophils # (Manual) PT INR APTT Heparin Anti-Xa Level ABG pH POC ABG pO2 ABG pO2 65.7 L ABG HCO3 28.3 H ABG O2 Saturation 93.9 L ABG Base Excess 3.6 H POC ABG pCO2 ABG Hemoglobin 13.3 L ABG Oxyhemoglobin ABG Chloride ABG Glucose Oxyhemoglobin 91.5 L Sodium Potassium Chloride Carbon Dioxide BUN Creatinine Glucose POC Glucose 123 H 119 H Lactic Acid Calcium Phosphorus Magnesium AST ALT Lactate Dehydrogenase Total Bilirubin Direct Bilirubin CK-MB (CK-2) C-Reactive Protein NT-Pro-B Natriuret Pep Total Protein Albumin Arterial Blood Glucose Urine WBC (Auto) Urine Creatinine 11/30/19 11/30/19 11/30/19 04:17 04:17 04:56 WBC 13.4 H RBC Hgb Hct MCHC RDW 15.6 H MCV MCH Lymph % (Auto) [facility] % (Auto) [facility] # Eos # Lymph # (Auto) [facility] # (Auto) Eos # (Auto) Seg Neutrophils % Seg Neuts % (Manual) Baso # (Auto) Lymphocytes % (Manual) Monocytes % (Manual) Eosinophils % (Manual) Basophils % (Manual) Seg Neutrophils # Seg Neutrophils # Man Lymphocytes # (Manual) Monocytes # (Manual) Eosinophils # (Manual) Nucleated RBC % Basophils # (Manual) PT INR APTT Heparin Anti-Xa Level ABG pH POC ABG pO2 ABG pO2 56.3 L ABG HCO3 29.3 H ABG O2 Saturation 91.5 L ABG Base Excess 4.7 H POC ABG pCO2 ABG Hemoglobin 12.1 L ABG Oxyhemoglobin ABG Chloride ABG Glucose Oxyhemoglobin 89.2 L Sodium 147 H Potassium Chloride Carbon Dioxide BUN 30 H Creatinine Glucose 124 H POC Glucose Lactic Acid Calcium Phosphorus Magnesium AST ALT Lactate Dehydrogenase Total Bilirubin Direct Bilirubin CK-MB (CK-2) C-Reactive Protein NT-Pro-B Natriuret Pep Total Protein Albumin 3.8 L Arterial Blood Glucose Urine WBC (Auto) Urine Creatinine 11/30/19 11/30/19 11/30/19 05:51 11:54 18:17 WBC RBC Hgb Hct MCHC RDW MCV MCH Lymph % (Auto) [facility] % (Auto) [facility] # Eos # Lymph # (Auto) [facility] # (Auto) Eos # (Auto) Seg Neutrophils % Seg Neuts % (Manual) Baso # (Auto) Lymphocytes % (Manual) Monocytes % (Manual) Eosinophils % (Manual) Basophils % (Manual) Seg Neutrophils # Seg Neutrophils # Man Lymphocytes # (Manual) Monocytes # (Manual) Eosinophils # (Manual) Nucleated RBC % Basophils # (Manual) PT INR APTT Heparin Anti-Xa Level ABG pH POC ABG pO2 ABG pO2 ABG HCO3 ABG O2 Saturation ABG Base Excess POC ABG pCO2 ABG Hemoglobin ABG Oxyhemoglobin ABG Chloride ABG Glucose Oxyhemoglobin Sodium Potassium Chloride Carbon Dioxide BUN Creatinine Glucose POC Glucose 127 H 115 H 143 H Lactic Acid Calcium Phosphorus Magnesium AST ALT Lactate Dehydrogenase Total Bilirubin Direct Bilirubin CK-MB (CK-2) C-Reactive Protein NT-Pro-B Natriuret Pep Total Protein Albumin Arterial Blood Glucose Urine WBC (Auto) Urine Creatinine 12/01/19 12/01/19 12/01/19 01:18 05:22 12:16 WBC RBC Hgb Hct MCHC RDW MCV MCH Lymph % (Auto) [facility] % (Auto) [facility] # Eos # Lymph # (Auto) [facility] # (Auto) Eos # (Auto) Seg Neutrophils % Seg Neuts % (Manual) Baso # (Auto) Lymphocytes % (Manual) Monocytes % (Manual) Eosinophils % (Manual) Basophils % (Manual) Seg Neutrophils # Seg Neutrophils # Man Lymphocytes # (Manual) Monocytes # (Manual) Eosinophils # (Manual) Nucleated RBC % Basophils # (Manual) PT INR APTT Heparin Anti-Xa Level ABG pH POC ABG pO2 ABG pO2 ABG HCO3 ABG O2 Saturation ABG Base Excess POC ABG pCO2 ABG Hemoglobin ABG Oxyhemoglobin ABG Chloride ABG Glucose Oxyhemoglobin Sodium Potassium 3.5 L Chloride 107.8 H Carbon Dioxide BUN 37 H Creatinine Glucose 157 H POC Glucose 118 H 148 H Lactic Acid Calcium 8.2 L D Phosphorus Magnesium AST 48 H ALT 60 H Lactate Dehydrogenase 194 H Total Bilirubin Direct Bilirubin CK-MB (CK-2) C-Reactive Protein 8.50 H NT-Pro-B Natriuret Pep Total Protein 5.5 L Albumin 2.8 L Arterial Blood Glucose Urine WBC (Auto) Urine Creatinine 12/01/19 12/02/19 12/02/19 18:04 00:05 05:16 WBC 11.4 H RBC Hgb Hct MCHC RDW 15.9 H MCV MCH Lymph % (Auto) [facility] % (Auto) 9.[address] [facility] # 1.1 H Eos # Lymph # (Auto) [facility] # (Auto) Eos # (Auto) Seg Neutrophils % 70.3 H Seg Neuts % (Manual) Baso # (Auto) Lymphocytes % (Manual) Monocytes % (Manual) Eosinophils % (Manual) Basophils % (Manual) Seg Neutrophils # 8.0 H Seg Neutrophils # Man Lymphocytes # (Manual) Monocytes # (Manual) Eosinophils # (Manual) Nucleated RBC % Basophils # (Manual) PT INR APTT Heparin Anti-Xa Level ABG pH POC ABG pO2 ABG pO2 ABG HCO3 ABG O2 Saturation ABG Base Excess POC ABG pCO2 ABG Hemoglobin ABG Oxyhemoglobin ABG Chloride ABG Glucose Oxyhemoglobin Sodium Potassium Chloride Carbon Dioxide BUN Creatinine Glucose POC Glucose 143 H 107 H Lactic Acid Calcium Phosphorus Magnesium AST ALT Lactate Dehydrogenase Total Bilirubin Direct Bilirubin CK-MB (CK-2) C-Reactive Protein NT-Pro-B Natriuret Pep Total Protein Albumin Arterial Blood Glucose Urine WBC (Auto) Urine Creatinine 12/02/19 12/02/19 12/02/19 05:16 06:03 11:52 WBC RBC Hgb Hct MCHC RDW MCV MCH Lymph % (Auto) [facility] % (Auto) [facility] # Eos # Lymph # (Auto) [facility] # (Auto) Eos # (Auto) Seg Neutrophils % Seg Neuts % (Manual) Baso # (Auto) Lymphocytes % (Manual) Monocytes % (Manual) Eosinophils % (Manual) Basophils % (Manual) Seg Neutrophils # Seg Neutrophils # Man Lymphocytes # (Manual) Monocytes # (Manual) Eosinophils # (Manual) Nucleated RBC % Basophils # (Manual) PT INR APTT Heparin Anti-Xa Level ABG pH POC ABG pO2 ABG pO2 ABG HCO3 ABG O2 Saturation ABG Base Excess POC ABG pCO2 ABG Hemoglobin ABG Oxyhemoglobin ABG Chloride ABG Glucose Oxyhemoglobin Sodium 146 H Potassium Chloride Carbon Dioxide BUN 28 H Creatinine Glucose 123 H POC Glucose 110 H 152 H Lactic Acid Calcium Phosphorus Magnesium AST ALT Lactate Dehydrogenase Total Bilirubin Direct Bilirubin CK-MB (CK-2) C-Reactive Protein NT-Pro-B Natriuret Pep Total Protein Albumin Arterial Blood Glucose Urine WBC (Auto) Urine Creatinine 12/02/19 12/02/19 12/02/19 12:58 17:58 23:36 WBC RBC Hgb Hct MCHC RDW MCV MCH Lymph % (Auto) [facility] % (Auto) [facility] # Eos # Lymph # (Auto) [facility] # (Auto) Eos # (Auto) Seg Neutrophils % Seg Neuts % (Manual) Baso # (Auto) Lymphocytes % (Manual) Monocytes % (Manual) Eosinophils % (Manual) Basophils % (Manual) Seg Neutrophils # Seg Neutrophils # Man Lymphocytes # (Manual) Monocytes # (Manual) Eosinophils # (Manual) Nucleated RBC % Basophils # (Manual) PT INR APTT Heparin Anti-Xa Level ABG pH POC ABG pO2 78.1 L ABG pO2 ABG HCO3 ABG O2 Saturation ABG Base Excess POC ABG pCO2 ABG Hemoglobin ABG Oxyhemoglobin ABG Chloride ABG Glucose Oxyhemoglobin Sodium Potassium Chloride Carbon Dioxide BUN Creatinine Glucose POC Glucose 120 H 123 H Lactic Acid Calcium Phosphorus Magnesium AST ALT Lactate Dehydrogenase Total Bilirubin Direct Bilirubin CK-MB (CK-2) C-Reactive Protein NT-Pro-B Natriuret Pep Total Protein Albumin Arterial Blood Glucose Urine WBC (Auto) Urine Creatinine 12/03/19 12/03/19 12/03/19 06:03 06:14 11:46 WBC RBC Hgb Hct MCHC RDW MCV MCH Lymph % (Auto) [facility] % (Auto) [facility] # Eos # Lymph # (Auto) [facility] # (Auto) Eos # (Auto) Seg Neutrophils % Seg Neuts % (Manual) Baso # (Auto) Lymphocytes % (Manual) Monocytes % (Manual) Eosinophils % (Manual) Basophils % (Manual) Seg Neutrophils # Seg Neutrophils # Man Lymphocytes # (Manual) Monocytes # (Manual) Eosinophils # (Manual) Nucleated RBC % Basophils # (Manual) PT INR APTT Heparin Anti-Xa Level ABG pH POC ABG pO2 ABG pO2 ABG HCO3 ABG O2 Saturation ABG Base Excess POC ABG pCO2 ABG Hemoglobin ABG Oxyhemoglobin ABG Chloride ABG Glucose Oxyhemoglobin Sodium Potassium Chloride Carbon Dioxide BUN Creatinine Glucose POC Glucose 142 H 130 H Lactic Acid Calcium Phosphorus Magnesium AST ALT Lactate Dehydrogenase Total Bilirubin Direct Bilirubin CK-MB (CK-2) C-Reactive Protein NT-Pro-B Natriuret Pep Total Protein Albumin Arterial Blood Glucose Urine WBC (Auto) 8.0 H Urine Creatinine 12/03/19 12/03/19 12/04/19 15:50 17:39 00:04 WBC RBC Hgb Hct MCHC RDW MCV MCH Lymph % (Auto) [facility] % (Auto) [facility] # Eos # Lymph # (Auto) [facility] # (Auto) Eos # (Auto) Seg Neutrophils % Seg Neuts % (Manual) Baso # (Auto) Lymphocytes % (Manual) Monocytes % (Manual) Eosinophils % (Manual) Basophils % (Manual) Seg Neutrophils # Seg Neutrophils # Man Lymphocytes # (Manual) Monocytes # (Manual) Eosinophils # (Manual) Nucleated RBC % Basophils # (Manual) PT INR APTT Heparin Anti-Xa Level ABG pH POC ABG pO2 ABG pO2 ABG HCO3 ABG O2 Saturation ABG Base Excess POC ABG pCO2 ABG Hemoglobin ABG Oxyhemoglobin ABG Chloride ABG Glucose Oxyhemoglobin Sodium Potassium Chloride Carbon Dioxide BUN Creatinine Glucose POC Glucose 146 H 133 H Lactic Acid Calcium Phosphorus 2.40 L Magnesium AST ALT Lactate Dehydrogenase Total Bilirubin Direct Bilirubin CK-MB (CK-2) C-Reactive Protein NT-Pro-B Natriuret Pep Total Protein Albumin Arterial Blood Glucose Urine WBC (Auto) Urine Creatinine 12/04/19 12/04/19 12/04/19 03:58 03:58 05:22 WBC 12.5 H RBC Hgb 11.2 L Hct 35.2 L MCHC RDW 16.0 H MCV MCH Lymph % (Auto) [facility] % (Auto) 9.[address] [facility] # 1.2 H Eos # 0.5 H Lymph # (Auto) [facility] # (Auto) Eos # (Auto) Seg Neutrophils % Seg Neuts % (Manual) Baso # (Auto) Lymphocytes % (Manual) Monocytes % (Manual) Eosinophils % (Manual) Basophils % (Manual) Seg Neutrophils # 8.6 H Seg Neutrophils # Man Lymphocytes # (Manual) Monocytes # (Manual) Eosinophils # (Manual) Nucleated RBC % Basophils # (Manual) PT INR APTT Heparin Anti-Xa Level ABG pH POC ABG pO2 ABG pO2 ABG HCO3 ABG O2 Saturation ABG Base Excess POC ABG pCO2 ABG Hemoglobin ABG Oxyhemoglobin ABG Chloride ABG Glucose Oxyhemoglobin Sodium 146 H Potassium Chloride 108.6 H Carbon Dioxide BUN 30 H Creatinine 0.7 L Glucose 121 H POC Glucose 132 H Lactic Acid Calcium Phosphorus Magnesium AST ALT Lactate Dehydrogenase Total Bilirubin Direct Bilirubin CK-MB (CK-2) C-Reactive Protein NT-Pro-B Natriuret Pep Total Protein Albumin Arterial Blood Glucose Urine WBC (Auto) Urine Creatinine 12/04/19 12/04/19 12/05/19 13:26 18:43 00:19 WBC RBC Hgb Hct MCHC RDW MCV MCH Lymph % (Auto) [facility] % (Auto) [facility] # Eos # Lymph # (Auto) [facility] # (Auto) Eos # (Auto) Seg Neutrophils % Seg Neuts % (Manual) Baso # (Auto) Lymphocytes % (Manual) Monocytes % (Manual) Eosinophils % (Manual) Basophils % (Manual) Seg Neutrophils # Seg Neutrophils # Man Lymphocytes # (Manual) Monocytes # (Manual) Eosinophils # (Manual) Nucleated RBC % Basophils # (Manual) PT INR APTT Heparin Anti-Xa Level ABG pH POC ABG pO2 ABG pO2 ABG HCO3 ABG O2 Saturation ABG Base Excess POC ABG pCO2 ABG Hemoglobin ABG Oxyhemoglobin ABG Chloride ABG Glucose Oxyhemoglobin Sodium Potassium Chloride Carbon Dioxide BUN Creatinine Glucose POC Glucose 185 H 156 H 150 H Lactic Acid Calcium Phosphorus Magnesium AST ALT Lactate Dehydrogenase Total Bilirubin Direct Bilirubin CK-MB (CK-2) C-Reactive Protein NT-Pro-B Natriuret Pep Total Protein Albumin Arterial Blood Glucose Urine WBC (Auto) Urine Creatinine 12/05/19 12/05/19 12/05/19 03:37 03:37 05:14 WBC 16.3 H RBC Hgb 11.4 L Hct MCHC RDW 15.6 H MCV MCH Lymph % (Auto) 9.[address] [facility] % (Auto) 9.[address] [facility] # 1.6 H Eos # Lymph # (Auto) [facility] # (Auto) Eos # (Auto) Seg Neutrophils % 78.0 H Seg Neuts % (Manual) Baso # (Auto) Lymphocytes % (Manual) Monocytes % (Manual) Eosinophils % (Manual) Basophils % (Manual) Seg Neutrophils # 12.7 H Seg Neutrophils # Man Lymphocytes # (Manual) Monocytes # (Manual) Eosinophils # (Manual) Nucleated RBC % Basophils # (Manual) PT INR APTT Heparin Anti-Xa Level ABG pH POC ABG pO2 ABG pO2 ABG HCO3 ABG O2 Saturation ABG Base Excess POC ABG pCO2 ABG Hemoglobin ABG Oxyhemoglobin ABG Chloride ABG Glucose Oxyhemoglobin Sodium 146 H Potassium Chloride 107.2 H Carbon Dioxide BUN 27 H Creatinine 0.7 L Glucose 171 H POC Glucose 168 H Lactic Acid Calcium Phosphorus Magnesium AST ALT Lactate Dehydrogenase Total Bilirubin Direct Bilirubin CK-MB (CK-2) C-Reactive Protein NT-Pro-B Natriuret Pep Total Protein Albumin Arterial Blood Glucose Urine WBC (Auto) Urine Creatinine 12/05/19 12/05/19 12/05/19 12:31 18:10 23:58 WBC RBC Hgb Hct MCHC RDW MCV MCH Lymph % (Auto) [facility] % (Auto) [facility] # Eos # Lymph # (Auto) [facility] # (Auto) Eos # (Auto) Seg Neutrophils % Seg Neuts % (Manual) Baso # (Auto) Lymphocytes % (Manual) Monocytes % (Manual) Eosinophils % (Manual) Basophils % (Manual) Seg Neutrophils # Seg Neutrophils # Man Lymphocytes # (Manual) Monocytes # (Manual) Eosinophils # (Manual) Nucleated RBC % Basophils # (Manual) PT INR APTT Heparin Anti-Xa Level ABG pH POC ABG pO2 ABG pO2 ABG HCO3 ABG O2 Saturation ABG Base Excess POC ABG pCO2 ABG Hemoglobin ABG Oxyhemoglobin ABG Chloride ABG Glucose Oxyhemoglobin Sodium Potassium Chloride Carbon Dioxide BUN Creatinine Glucose POC Glucose 159 H 198 H 115 H Lactic Acid Calcium Phosphorus Magnesium AST ALT Lactate Dehydrogenase Total Bilirubin Direct Bilirubin CK-MB (CK-2) C-Reactive Protein NT-Pro-B Natriuret Pep Total Protein Albumin Arterial Blood Glucose Urine WBC (Auto) Urine Creatinine 12/06/19 12/06/19 12/06/19 05:24 05:24 05:25 WBC 14.9 H RBC Hgb 10.8 L Hct 34.0 L MCHC RDW 15.6 H MCV MCH Lymph % (Auto) 10.[address] [facility] % (Auto) 8.[address] [facility] # 1.2 H Eos # Lymph # (Auto) [facility] # (Auto) Eos # (Auto) Seg Neutrophils % 78.7 H Seg Neuts % (Manual) Baso # (Auto) Lymphocytes % (Manual) Monocytes % (Manual) Eosinophils % (Manual) Basophils % (Manual) Seg Neutrophils # 11.7 H Seg Neutrophils # Man Lymphocytes # (Manual) Monocytes # (Manual) Eosinophils # (Manual) Nucleated RBC % Basophils # (Manual) PT INR APTT Heparin Anti-Xa Level ABG pH POC ABG pO2 ABG pO2 ABG HCO3 ABG O2 Saturation ABG Base Excess POC ABG pCO2 ABG Hemoglobin ABG Oxyhemoglobin ABG Chloride ABG Glucose Oxyhemoglobin Sodium 148 H Potassium 5.1 H Chloride 107.6 H Carbon Dioxide BUN 27 H Creatinine 0.7 L Glucose 155 H POC Glucose 157 H Lactic Acid Calcium Phosphorus Magnesium AST ALT Lactate Dehydrogenase Total Bilirubin Direct Bilirubin CK-MB (CK-2) C-Reactive Protein NT-Pro-B Natriuret Pep Total Protein Albumin Arterial Blood Glucose Urine WBC (Auto) Urine Creatinine 12/07/19 12/07/19 12/07/19 00:13 05:34 11:33 WBC RBC Hgb Hct MCHC RDW MCV MCH Lymph % (Auto) [facility] % (Auto) [facility] # Eos # Lymph # (Auto) [facility] # (Auto) Eos # (Auto) Seg Neutrophils % Seg Neuts % (Manual) Baso # (Auto) Lymphocytes % (Manual) Monocytes % (Manual) Eosinophils % (Manual) Basophils % (Manual) Seg Neutrophils # Seg Neutrophils # Man Lymphocytes # (Manual) Monocytes # (Manual) Eosinophils # (Manual) Nucleated RBC % Basophils # (Manual) PT INR APTT Heparin Anti-Xa Level ABG pH POC ABG pO2 ABG pO2 ABG HCO3 ABG O2 Saturation ABG Base Excess POC ABG pCO2 ABG Hemoglobin ABG Oxyhemoglobin ABG Chloride ABG Glucose Oxyhemoglobin Sodium Potassium Chloride Carbon Dioxide BUN Creatinine Glucose POC Glucose 142 H 111 H 169 H Lactic Acid Calcium Phosphorus Magnesium AST ALT Lactate Dehydrogenase Total Bilirubin Direct Bilirubin CK-MB (CK-2) C-Reactive Protein NT-Pro-B Natriuret Pep Total Protein Albumin Arterial Blood Glucose Urine WBC (Auto) Urine Creatinine 12/07/19 12/07/19 12/07/19 12:41 13:25 18:19 WBC 12.4 H RBC 3.53 L Hgb 10.2 L Hct 32.1 L MCHC RDW 15.3 H MCV MCH Lymph % (Auto) 10.[address] [facility] % (Auto) 7.[address] [facility] # 1.0 H Eos # Lymph # (Auto) [facility] # (Auto) Eos # (Auto) Seg Neutrophils % 77.6 H Seg Neuts % (Manual) Baso # (Auto) Lymphocytes % (Manual) Monocytes % (Manual) Eosinophils % (Manual) Basophils % (Manual) Seg Neutrophils # 9.6 H Seg Neutrophils # Man Lymphocytes # (Manual) Monocytes # (Manual) Eosinophils # (Manual) Nucleated RBC % Basophils # (Manual) PT INR APTT Heparin Anti-Xa Level ABG pH POC ABG pO2 ABG pO2 ABG HCO3 ABG O2 Saturation ABG Base Excess POC ABG pCO2 ABG Hemoglobin ABG Oxyhemoglobin ABG Chloride ABG Glucose Oxyhemoglobin Sodium 149 H Potassium Chloride 108.4 H Carbon Dioxide BUN 26 H Creatinine 0.6 L Glucose 149 H POC Glucose 164 H Lactic Acid Calcium Phosphorus Magnesium 2.60 H AST 121 H ALT 145 H Lactate Dehydrogenase Total Bilirubin Direct Bilirubin CK-MB (CK-2) C-Reactive Protein NT-Pro-B Natriuret Pep Total Protein Albumin 2.6 L Arterial Blood Glucose Urine WBC (Auto) Urine Creatinine 12/07/19 12/08/19 12/08/19 22:25 00:02 03:55 WBC 13.3 H RBC 3.40 L Hgb 9.7 L Hct 30.8 L MCHC 31 L RDW 15.5 H MCV MCH Lymph % (Auto) [facility] % (Auto) 8.[address] [facility] # 1.1 H Eos # Lymph # (Auto) [facility] # (Auto) Eos # (Auto) Seg Neutrophils % 73.0 H Seg Neuts % (Manual) Baso # (Auto) Lymphocytes % (Manual) Monocytes % (Manual) Eosinophils % (Manual) Basophils % (Manual) Seg Neutrophils # 9.7 H Seg Neutrophils # Man Lymphocytes # (Manual) Monocytes # (Manual) Eosinophils # (Manual) Nucleated RBC % Basophils # (Manual) PT INR APTT Heparin Anti-Xa Level 0.12 L ABG pH POC ABG pO2 ABG pO2 ABG HCO3 ABG O2 Saturation ABG Base Excess POC ABG pCO2 ABG Hemoglobin ABG Oxyhemoglobin ABG Chloride ABG Glucose Oxyhemoglobin Sodium Potassium Chloride Carbon Dioxide BUN Creatinine Glucose POC Glucose 151 H Lactic Acid Calcium Phosphorus Magnesium AST ALT Lactate Dehydrogenase Total Bilirubin Direct Bilirubin CK-MB (CK-2) C-Reactive Protein NT-Pro-B Natriuret Pep Total Protein Albumin Arterial Blood Glucose Urine WBC (Auto) Urine Creatinine 12/08/19 12/08/19 12/08/19 03:55 05:21 06:01 WBC RBC Hgb Hct MCHC RDW MCV MCH Lymph % (Auto) [facility] % (Auto) [facility] # Eos # Lymph # (Auto) [facility] # (Auto) Eos # (Auto) Seg Neutrophils % Seg Neuts % (Manual) Baso # (Auto) Lymphocytes % (Manual) Monocytes % (Manual) Eosinophils % (Manual) Basophils % (Manual) Seg Neutrophils # Seg Neutrophils # Man Lymphocytes # (Manual) Monocytes # (Manual) Eosinophils # (Manual) Nucleated RBC % Basophils # (Manual) PT INR APTT Heparin Anti-Xa Level 0.20 L ABG pH POC ABG pO2 ABG pO2 ABG HCO3 ABG O2 Saturation ABG Base Excess POC ABG pCO2 ABG Hemoglobin ABG Oxyhemoglobin ABG Chloride ABG Glucose Oxyhemoglobin Sodium 149 H Potassium Chloride 108.0 H Carbon Dioxide BUN 28 H Creatinine 0.6 L Glucose 144 H POC Glucose 143 H Lactic Acid Calcium Phosphorus Magnesium AST 98 H ALT 145 H Lactate Dehydrogenase Total Bilirubin Direct Bilirubin CK-MB (CK-2) C-Reactive Protein NT-Pro-B Natriuret Pep Total Protein 6.0 L Albumin 2.4 L Arterial Blood Glucose Urine WBC (Auto) Urine Creatinine 12/08/19 12/08/19 12/08/19 12:08 18:11 23:53 WBC RBC Hgb Hct MCHC RDW MCV MCH Lymph % (Auto) [facility] % (Auto) [facility] # Eos # Lymph # (Auto) [facility] # (Auto) Eos # (Auto) Seg Neutrophils % Seg Neuts % (Manual) Baso # (Auto) Lymphocytes % (Manual) Monocytes % (Manual) Eosinophils % (Manual) Basophils % (Manual) Seg Neutrophils # Seg Neutrophils # Man Lymphocytes # (Manual) Monocytes # (Manual) Eosinophils # (Manual) Nucleated RBC % Basophils # (Manual) PT INR APTT Heparin Anti-Xa Level ABG pH POC ABG pO2 ABG pO2 ABG HCO3 ABG O2 Saturation ABG Base Excess POC ABG pCO2 ABG Hemoglobin ABG Oxyhemoglobin ABG Chloride ABG Glucose Oxyhemoglobin Sodium Potassium Chloride Carbon Dioxide BUN Creatinine Glucose POC Glucose 172 H 122 H 162 H Lactic Acid Calcium Phosphorus Magnesium AST ALT Lactate Dehydrogenase Total Bilirubin Direct Bilirubin CK-MB (CK-2) C-Reactive Protein NT-Pro-B Natriuret Pep Total Protein Albumin Arterial Blood Glucose Urine WBC (Auto) Urine Creatinine 12/09/19 12/09/19 12/09/19 04:03 04:03 05:53 WBC RBC Hgb 9.1 L Hct 28.9 L MCHC RDW MCV MCH Lymph % (Auto) [facility] % (Auto) [facility] # Eos # Lymph # (Auto) [facility] # (Auto) Eos # (Auto) Seg Neutrophils % Seg Neuts % (Manual) Baso # (Auto) Lymphocytes % (Manual) Monocytes % (Manual) Eosinophils % (Manual) Basophils % (Manual) Seg Neutrophils # Seg Neutrophils # Man Lymphocytes # (Manual) Monocytes # (Manual) Eosinophils # (Manual) Nucleated RBC % Basophils # (Manual) PT INR APTT Heparin Anti-Xa Level 0.15 L ABG pH POC ABG pO2 ABG pO2 ABG HCO3 ABG O2 Saturation ABG Base Excess POC ABG pCO2 ABG Hemoglobin ABG Oxyhemoglobin ABG Chloride ABG Glucose Oxyhemoglobin Sodium Potassium Chloride Carbon Dioxide BUN Creatinine Glucose POC Glucose 124 H Lactic Acid Calcium Phosphorus Magnesium AST ALT Lactate Dehydrogenase Total Bilirubin Direct Bilirubin CK-MB (CK-2) C-Reactive Protein NT-Pro-B Natriuret Pep Total Protein Albumin Arterial Blood Glucose Urine WBC (Auto) Urine Creatinine 12/09/19 12/09/19 12/10/19 09:43 12:41 00:13 WBC RBC Hgb Hct MCHC RDW MCV MCH Lymph % (Auto) [facility] % (Auto) [facility] # Eos # Lymph # (Auto) [facility] # (Auto) Eos # (Auto) Seg Neutrophils % Seg Neuts % (Manual) Baso # (Auto) Lymphocytes % (Manual) Monocytes % (Manual) Eosinophils % (Manual) Basophils % (Manual) Seg Neutrophils # Seg Neutrophils # Man Lymphocytes # (Manual) Monocytes # (Manual) Eosinophils # (Manual) Nucleated RBC % Basophils # (Manual) PT INR APTT Heparin Anti-Xa Level ABG pH POC ABG pO2 ABG pO2 ABG HCO3 ABG O2 Saturation ABG Base Excess POC ABG pCO2 ABG Hemoglobin ABG Oxyhemoglobin ABG Chloride ABG Glucose Oxyhemoglobin Sodium Potassium Chloride Carbon Dioxide BUN 25 H Creatinine 0.6 L Glucose 131 H POC Glucose 109 H 120 H Lactic Acid Calcium Phosphorus Magnesium AST ALT Lactate Dehydrogenase Total Bilirubin Direct Bilirubin CK-MB (CK-2) C-Reactive Protein NT-Pro-B Natriuret Pep Total Protein Albumin Arterial Blood Glucose Urine WBC (Auto) Urine Creatinine 12/10/19 12/10/19 12/10/19 04:14 04:14 12:00 WBC 13.3 H RBC 3.34 L Hgb 9.6 L Hct 30.4 L MCHC RDW 15.4 H MCV MCH Lymph % (Auto) [facility] % (Auto) [facility] # Eos # Lymph # (Auto) [facility] # (Auto) Eos # (Auto) Seg Neutrophils % Seg Neuts % (Manual) 75.0 H Baso # (Auto) Lymphocytes % (Manual) 13.0 L Monocytes % (Manual) 8.0 H Eosinophils % (Manual) Basophils % (Manual) 2.0 H Seg Neutrophils # Seg Neutrophils # Man 10.0 H Lymphocytes # (Manual) Monocytes # (Manual) 1.1 H Eosinophils # (Manual) Nucleated RBC % Basophils # (Manual) 0.3 H PT INR APTT Heparin Anti-Xa Level ABG pH POC ABG pO2 ABG pO2 ABG HCO3 ABG O2 Saturation ABG Base Excess POC ABG pCO2 ABG Hemoglobin ABG Oxyhemoglobin ABG Chloride ABG Glucose Oxyhemoglobin Sodium 147 H Potassium Chloride 108.3 H Carbon Dioxide BUN 21 H Creatinine 0.6 L Glucose 104 H POC Glucose 133 H Lactic Acid Calcium Phosphorus Magnesium AST ALT Lactate Dehydrogenase Total Bilirubin Direct Bilirubin CK-MB (CK-2) C-Reactive Protein NT-Pro-B Natriuret Pep Total Protein Albumin Arterial Blood Glucose Urine WBC (Auto) Urine Creatinine 12/10/19 12/10/19 12/11/19 18:44 21:20 00:08 WBC 14.9 H RBC 3.36 L Hgb 9.6 L Hct 30.5 L MCHC RDW 15.4 H MCV MCH Lymph % (Auto) [facility] % (Auto) [facility] # Eos # Lymph # (Auto) [facility] # (Auto) Eos # (Auto) Seg Neutrophils % Seg Neuts % (Manual) Baso # (Auto) Lymphocytes % (Manual) Monocytes % (Manual) Eosinophils % (Manual) Basophils % (Manual) Seg Neutrophils # Seg Neutrophils # Man Lymphocytes # (Manual) Monocytes # (Manual) Eosinophils # (Manual) Nucleated RBC % Basophils # (Manual) PT INR APTT Heparin Anti-Xa Level ABG pH POC ABG pO2 ABG pO2 ABG HCO3 ABG O2 Saturation ABG Base Excess POC ABG pCO2 ABG Hemoglobin ABG Oxyhemoglobin ABG Chloride ABG Glucose Oxyhemoglobin Sodium Potassium Chloride Carbon Dioxide BUN Creatinine Glucose POC Glucose 119 H 134 H Lactic Acid Calcium Phosphorus Magnesium AST ALT Lactate Dehydrogenase Total Bilirubin Direct Bilirubin CK-MB (CK-2) C-Reactive Protein NT-Pro-B Natriuret Pep Total Protein Albumin Arterial Blood Glucose Urine WBC (Auto) Urine Creatinine 12/11/19 12/11/19 12/11/19 03:54 07:28 08:36 WBC 11.9 H RBC 3.25 L Hgb 9.6 L Hct 29.2 L MCHC RDW 15.7 H MCV MCH Lymph % (Auto) [facility] % (Auto) [facility] # Eos # Lymph # (Auto) [facility] # (Auto) Eos # (Auto) Seg Neutrophils % Seg Neuts % (Manual) Baso # (Auto) Lymphocytes % (Manual) Monocytes % (Manual) Eosinophils % (Manual) Basophils % (Manual) Seg Neutrophils # Seg Neutrophils # Man Lymphocytes # (Manual) Monocytes # (Manual) Eosinophils # (Manual) Nucleated RBC % Basophils # (Manual) PT INR APTT Heparin Anti-Xa Level 0.10 L 0.16 L ABG pH POC ABG pO2 ABG pO2 ABG HCO3 ABG O2 Saturation ABG Base Excess POC ABG pCO2 ABG Hemoglobin ABG Oxyhemoglobin ABG Chloride ABG Glucose Oxyhemoglobin Sodium Potassium Chloride Carbon Dioxide BUN Creatinine Glucose POC Glucose Lactic Acid Calcium Phosphorus Magnesium AST ALT Lactate Dehydrogenase Total Bilirubin Direct Bilirubin CK-MB (CK-2) C-Reactive Protein NT-Pro-B Natriuret Pep Total Protein Albumin Arterial Blood Glucose Urine WBC (Auto) Urine Creatinine 12/11/19 12/11/19 12/11/19 08:36 11:45 17:15 WBC RBC Hgb Hct MCHC RDW MCV MCH Lymph % (Auto) [facility] % (Auto) [facility] # Eos # Lymph # (Auto) [facility] # (Auto) Eos # (Auto) Seg Neutrophils % Seg Neuts % (Manual) Baso # (Auto) Lymphocytes % (Manual) Monocytes % (Manual) Eosinophils % (Manual) Basophils % (Manual) Seg Neutrophils # Seg Neutrophils # Man Lymphocytes # (Manual) Monocytes # (Manual) Eosinophils # (Manual) Nucleated RBC % Basophils # (Manual) PT INR APTT Heparin Anti-Xa Level ABG pH POC ABG pO2 ABG pO2 ABG HCO3 ABG O2 Saturation ABG Base Excess POC ABG pCO2 ABG Hemoglobin ABG Oxyhemoglobin ABG Chloride ABG Glucose Oxyhemoglobin Sodium Potassium Chloride Carbon Dioxide BUN Creatinine 0.5 L Glucose 128 H POC Glucose 136 H 109 H Lactic Acid Calcium Phosphorus Magnesium AST ALT Lactate Dehydrogenase Total Bilirubin Direct Bilirubin CK-MB (CK-2) C-Reactive Protein NT-Pro-B Natriuret Pep Total Protein Albumin Arterial Blood Glucose Urine WBC (Auto) Urine Creatinine 12/12/19 12/12/19 12/12/19 00:03 05:53 05:53 WBC RBC Hgb 8.8 L Hct 27.6 L MCHC RDW MCV MCH Lymph % (Auto) [facility] % (Auto) [facility] # Eos # Lymph # (Auto) [facility] # (Auto) Eos # (Auto) Seg Neutrophils % Seg Neuts % (Manual) Baso # (Auto) Lymphocytes % (Manual) Monocytes % (Manual) Eosinophils % (Manual) Basophils % (Manual) Seg Neutrophils # Seg Neutrophils # Man Lymphocytes # (Manual) Monocytes # (Manual) Eosinophils # (Manual) Nucleated RBC % Basophils # (Manual) PT INR APTT Heparin Anti-Xa Level 0.22 L ABG pH POC ABG pO2 ABG pO2 ABG HCO3 ABG O2 Saturation ABG Base Excess POC ABG pCO2 ABG Hemoglobin ABG Oxyhemoglobin ABG Chloride ABG Glucose Oxyhemoglobin Sodium Potassium Chloride Carbon Dioxide BUN Creatinine Glucose POC Glucose 116 H Lactic Acid Calcium Phosphorus Magnesium AST ALT Lactate Dehydrogenase Total Bilirubin Direct Bilirubin CK-MB (CK-2) C-Reactive Protein NT-Pro-B Natriuret Pep Total Protein Albumin Arterial Blood Glucose Urine WBC (Auto) Urine Creatinine 12/12/19 12/12/19 12/12/19 09:38 12:18 17:44 WBC RBC Hgb Hct MCHC RDW MCV MCH Lymph % (Auto) [facility] % (Auto) [facility] # Eos # Lymph # (Auto) [facility] # (Auto) Eos # (Auto) Seg Neutrophils % Seg Neuts % (Manual) Baso # (Auto) Lymphocytes % (Manual) Monocytes % (Manual) Eosinophils % (Manual) Basophils % (Manual) Seg Neutrophils # Seg Neutrophils # Man Lymphocytes # (Manual) Monocytes # (Manual) Eosinophils # (Manual) Nucleated RBC % Basophils # (Manual) PT INR APTT Heparin Anti-Xa Level ABG pH POC ABG pO2 ABG pO2 ABG HCO3 ABG O2 Saturation ABG Base Excess POC ABG pCO2 ABG Hemoglobin ABG Oxyhemoglobin ABG Chloride ABG Glucose Oxyhemoglobin Sodium Potassium Chloride Carbon Dioxide BUN Creatinine Glucose POC Glucose 115 H 146 H 146 H Lactic Acid Calcium Phosphorus Magnesium AST ALT Lactate Dehydrogenase Total Bilirubin Direct Bilirubin CK-MB (CK-2) C-Reactive Protein NT-Pro-B Natriuret Pep Total Protein Albumin Arterial Blood Glucose Urine WBC (Auto) Urine Creatinine 12/12/19 12/13/19 12/13/19 23:33 05:32 05:32 WBC 13.1 H RBC 3.27 L Hgb 9.5 L Hct 29.3 L MCHC RDW 15.6 H MCV MCH Lymph % (Auto) [facility] % (Auto) [facility] # Eos # Lymph # (Auto) [facility] # (Auto) Eos # (Auto) Seg Neutrophils % Seg Neuts % (Manual) 74.0 H Baso # (Auto) Lymphocytes % (Manual) 8.0 L Monocytes % (Manual) 9.0 H Eosinophils % (Manual) 5.0 H Basophils % (Manual) Seg Neutrophils # Seg Neutrophils # Man 9.7 H Lymphocytes # (Manual) 1.0 L Monocytes # (Manual) 1.2 H Eosinophils # (Manual) 0.7 H Nucleated RBC % Basophils # (Manual) PT INR APTT Heparin Anti-Xa Level 0.20 L ABG pH POC ABG pO2 ABG pO2 ABG HCO3 ABG O2 Saturation ABG Base Excess POC ABG pCO2 ABG Hemoglobin ABG Oxyhemoglobin ABG Chloride ABG Glucose Oxyhemoglobin Sodium Potassium Chloride Carbon Dioxide BUN Creatinine Glucose POC Glucose 126 H Lactic Acid Calcium Phosphorus Magnesium AST ALT Lactate Dehydrogenase Total Bilirubin Direct Bilirubin CK-MB (CK-2) C-Reactive Protein NT-Pro-B Natriuret Pep Total Protein Albumin Arterial Blood Glucose Urine WBC (Auto) Urine Creatinine 12/13/19 12/13/19 12/13/19 05:32 05:46 11:57 WBC RBC Hgb Hct MCHC RDW MCV MCH Lymph % (Auto) [facility] % (Auto) [facility] # Eos # Lymph # (Auto) [facility] # (Auto) Eos # (Auto) Seg Neutrophils % Seg Neuts % (Manual) Baso # (Auto) Lymphocytes % (Manual) Monocytes % (Manual) Eosinophils % (Manual) Basophils % (Manual) Seg Neutrophils # Seg Neutrophils # Man Lymphocytes # (Manual) Monocytes # (Manual) Eosinophils # (Manual) Nucleated RBC % Basophils # (Manual) PT INR APTT Heparin Anti-Xa Level ABG pH POC ABG pO2 ABG pO2 ABG HCO3 ABG O2 Saturation ABG Base Excess POC ABG pCO2 ABG Hemoglobin ABG Oxyhemoglobin ABG Chloride ABG Glucose Oxyhemoglobin Sodium Potassium Chloride Carbon Dioxide 31 H BUN Creatinine 0.6 L Glucose 114 H POC Glucose 118 H 133 H Lactic Acid Calcium Phosphorus Magnesium AST ALT Lactate Dehydrogenase Total Bilirubin Direct Bilirubin CK-MB (CK-2) C-Reactive Protein NT-Pro-B Natriuret Pep Total Protein Albumin Arterial Blood Glucose Urine WBC (Auto) Urine Creatinine 12/13/19 12/13/19 12/14/19 17:44 23:46 05:32 WBC RBC Hgb Hct MCHC RDW MCV MCH Lymph % (Auto) [facility] % (Auto) [facility] # Eos # Lymph # (Auto) [facility] # (Auto) Eos # (Auto) Seg Neutrophils % Seg Neuts % (Manual) Baso # (Auto) Lymphocytes % (Manual) Monocytes % (Manual) Eosinophils % (Manual) Basophils % (Manual) Seg Neutrophils # Seg Neutrophils # Man Lymphocytes # (Manual) Monocytes # (Manual) Eosinophils # (Manual) Nucleated RBC % Basophils # (Manual) PT INR APTT Heparin Anti-Xa Level ABG pH POC ABG pO2 ABG pO2 ABG HCO3 ABG O2 Saturation ABG Base Excess POC ABG pCO2 ABG Hemoglobin ABG Oxyhemoglobin ABG Chloride ABG Glucose Oxyhemoglobin Sodium Potassium Chloride Carbon Dioxide BUN Creatinine Glucose POC Glucose 161 H 126 H 139 H Lactic Acid Calcium Phosphorus Magnesium AST ALT Lactate Dehydrogenase Total Bilirubin Direct Bilirubin CK-MB (CK-2) C-Reactive Protein NT-Pro-B Natriuret Pep Total Protein Albumin Arterial Blood Glucose Urine WBC (Auto) Urine Creatinine 12/14/19 12/14/19 12/14/19 06:03 06:03 09:37 WBC RBC Hgb 9.6 L Hct 30.4 L MCHC RDW MCV MCH Lymph % (Auto) [facility] % (Auto) [facility] # Eos # Lymph # (Auto) [facility] # (Auto) Eos # (Auto) Seg Neutrophils % Seg Neuts % (Manual) Baso # (Auto) Lymphocytes % (Manual) Monocytes % (Manual) Eosinophils % (Manual) Basophils % (Manual) Seg Neutrophils # Seg Neutrophils # Man Lymphocytes # (Manual) Monocytes # (Manual) Eosinophils # (Manual) Nucleated RBC % Basophils # (Manual) PT INR APTT Heparin Anti-Xa Level 0.24 L ABG pH POC ABG pO2 ABG pO2 ABG HCO3 ABG O2 Saturation ABG Base Excess POC ABG pCO2 ABG Hemoglobin ABG Oxyhemoglobin ABG Chloride ABG Glucose Oxyhemoglobin Sodium Potassium Chloride Carbon Dioxide BUN Creatinine 0.6 L Glucose 162 H POC Glucose Lactic Acid Calcium Phosphorus Magnesium AST 71 H ALT 118 H Lactate Dehydrogenase Total Bilirubin Direct Bilirubin CK-MB (CK-2) C-Reactive Protein NT-Pro-B Natriuret Pep Total Protein 6.2 L Albumin 2.3 L Arterial Blood Glucose Urine WBC (Auto) Urine Creatinine 12/14/19 12/14/19 12/15/19 12:06 18:18 00:19 WBC RBC Hgb Hct MCHC RDW MCV MCH Lymph % (Auto) [facility] % (Auto) [facility] # Eos # Lymph # (Auto) [facility] # (Auto) Eos # (Auto) Seg Neutrophils % Seg Neuts % (Manual) Baso # (Auto) Lymphocytes % (Manual) Monocytes % (Manual) Eosinophils % (Manual) Basophils % (Manual) Seg Neutrophils # Seg Neutrophils # Man Lymphocytes # (Manual) Monocytes # (Manual) Eosinophils # (Manual) Nucleated RBC % Basophils # (Manual) PT INR APTT Heparin Anti-Xa Level ABG pH POC ABG pO2 ABG pO2 ABG HCO3 ABG O2 Saturation ABG Base Excess POC ABG pCO2 ABG Hemoglobin ABG Oxyhemoglobin ABG Chloride ABG Glucose Oxyhemoglobin Sodium Potassium Chloride Carbon Dioxide BUN Creatinine Glucose POC Glucose 147 H 166 H 123 H Lactic Acid Calcium Phosphorus Magnesium AST ALT Lactate Dehydrogenase Total Bilirubin Direct Bilirubin CK-MB (CK-2) C-Reactive Protein NT-Pro-B Natriuret Pep Total Protein Albumin Arterial Blood Glucose Urine WBC (Auto) Urine Creatinine 12/15/19 12/15/19 12/15/19 05:28 05:29 05:29 WBC 14.9 H RBC 3.19 L Hgb 9.1 L Hct 28.7 L MCHC RDW 16.0 H MCV MCH Lymph % (Auto) [facility] % (Auto) [facility] # Eos # Lymph # (Auto) [facility] # (Auto) Eos # (Auto) Seg Neutrophils % Seg Neuts % (Manual) Baso # (Auto) Lymphocytes % (Manual) Monocytes % (Manual) Eosinophils % (Manual) Basophils % (Manual) Seg Neutrophils # Seg Neutrophils # Man Lymphocytes # (Manual) Monocytes # (Manual) Eosinophils # (Manual) Nucleated RBC % Basophils # (Manual) PT INR APTT Heparin Anti-Xa Level 0.19 L ABG pH POC ABG pO2 ABG pO2 ABG HCO3 ABG O2 Saturation ABG Base Excess POC ABG pCO2 ABG Hemoglobin ABG Oxyhemoglobin ABG Chloride ABG Glucose Oxyhemoglobin Sodium Potassium Chloride Carbon Dioxide BUN Creatinine 0.6 L Glucose 110 H POC Glucose Lactic Acid Calcium Phosphorus Magnesium AST ALT Lactate Dehydrogenase Total Bilirubin Direct Bilirubin CK-MB (CK-2) C-Reactive Protein NT-Pro-B Natriuret Pep Total Protein Albumin Arterial Blood Glucose Urine WBC (Auto) Urine Creatinine 12/15/19 12/15/19 12/15/19 05:53 11:50 17:26 WBC RBC Hgb Hct MCHC RDW MCV MCH Lymph % (Auto) [facility] % (Auto) [facility] # Eos # Lymph # (Auto) [facility] # (Auto) Eos # (Auto) Seg Neutrophils % Seg Neuts % (Manual) Baso # (Auto) Lymphocytes % (Manual) Monocytes % (Manual) Eosinophils % (Manual) Basophils % (Manual) Seg Neutrophils # Seg Neutrophils # Man Lymphocytes # (Manual) Monocytes # (Manual) Eosinophils # (Manual) Nucleated RBC % Basophils # (Manual) PT INR APTT Heparin Anti-Xa Level ABG pH POC ABG pO2 ABG pO2 ABG HCO3 ABG O2 Saturation ABG Base Excess POC ABG pCO2 ABG Hemoglobin ABG Oxyhemoglobin ABG Chloride ABG Glucose Oxyhemoglobin Sodium Potassium Chloride Carbon Dioxide BUN Creatinine Glucose POC Glucose 119 H 132 H 128 H Lactic Acid Calcium Phosphorus Magnesium AST ALT Lactate Dehydrogenase Total Bilirubin Direct Bilirubin CK-MB (CK-2) C-Reactive Protein NT-Pro-B Natriuret Pep Total Protein Albumin Arterial Blood Glucose Urine WBC (Auto) Urine Creatinine 12/15/19 12/16/19 12/16/19 23:11 05:30 05:46 WBC RBC Hgb 8.8 L Hct 27.9 L MCHC RDW MCV MCH Lymph % (Auto) [facility] % (Auto) [facility] # Eos # Lymph # (Auto) [facility] # (Auto) Eos # (Auto) Seg Neutrophils % Seg Neuts % (Manual) Baso # (Auto) Lymphocytes % (Manual) Monocytes % (Manual) Eosinophils % (Manual) Basophils % (Manual) Seg Neutrophils # Seg Neutrophils # Man Lymphocytes # (Manual) Monocytes # (Manual) Eosinophils # (Manual) Nucleated RBC % Basophils # (Manual) PT INR APTT Heparin Anti-Xa Level ABG pH POC ABG pO2 ABG pO2 ABG HCO3 ABG O2 Saturation ABG Base Excess POC ABG pCO2 ABG Hemoglobin ABG Oxyhemoglobin ABG Chloride ABG Glucose Oxyhemoglobin Sodium Potassium Chloride Carbon Dioxide BUN Creatinine Glucose POC Glucose 150 H 134 H Lactic Acid Calcium Phosphorus Magnesium AST ALT Lactate Dehydrogenase Total Bilirubin Direct Bilirubin CK-MB (CK-2) C-Reactive Protein NT-Pro-B Natriuret Pep Total Protein Albumin Arterial Blood Glucose Urine WBC (Auto) Urine Creatinine 12/16/19 12/16/19 12/16/19 05:46 05:46 11:44 WBC RBC Hgb Hct MCHC RDW MCV MCH Lymph % (Auto) [facility] % (Auto) [facility] # Eos # Lymph # (Auto) [facility] # (Auto) Eos # (Auto) Seg Neutrophils % Seg Neuts % (Manual) Baso # (Auto) Lymphocytes % (Manual) Monocytes % (Manual) Eosinophils % (Manual) Basophils % (Manual) Seg Neutrophils # Seg Neutrophils # Man Lymphocytes # (Manual) Monocytes # (Manual) Eosinophils # (Manual) Nucleated RBC % Basophils # (Manual) PT INR APTT Heparin Anti-Xa Level 0.20 L ABG pH POC ABG pO2 ABG pO2 ABG HCO3 ABG O2 Saturation ABG Base Excess POC ABG pCO2 ABG Hemoglobin ABG Oxyhemoglobin ABG Chloride ABG Glucose Oxyhemoglobin Sodium Potassium Chloride Carbon Dioxide 31 H BUN Creatinine 0.5 L Glucose 147 H POC Glucose 164 H Lactic Acid Calcium Phosphorus Magnesium AST ALT Lactate Dehydrogenase Total Bilirubin Direct Bilirubin CK-MB (CK-2) C-Reactive Protein NT-Pro-B Natriuret Pep Total Protein Albumin Arterial Blood Glucose Urine WBC (Auto) Urine Creatinine 12/16/19 12/16/19 12/17/19 17:17 23:49 05:30 WBC 13.9 H RBC 3.27 L Hgb 9.4 L Hct 29.2 L MCHC RDW 16.0 H MCV MCH Lymph % (Auto) [facility] % (Auto) 8.[address] [facility] # Eos # Lymph # (Auto) [facility] # (Auto) 1.2 H Eos # (Auto) 0.5 H Seg Neutrophils % 70.5 H Seg Neuts % (Manual) Baso # (Auto) 0.2 H Lymphocytes % (Manual) Monocytes % (Manual) Eosinophils % (Manual) Basophils % (Manual) Seg Neutrophils # 9.8 H Seg Neutrophils # Man Lymphocytes # (Manual) Monocytes # (Manual) Eosinophils # (Manual) Nucleated RBC % Basophils # (Manual) PT INR APTT Heparin Anti-Xa Level ABG pH POC ABG pO2 ABG pO2 ABG HCO3 ABG O2 Saturation ABG Base Excess POC ABG pCO2 ABG Hemoglobin ABG Oxyhemoglobin ABG Chloride ABG Glucose Oxyhemoglobin Sodium Potassium Chloride Carbon Dioxide BUN Creatinine Glucose POC Glucose 162 H 144 H Lactic Acid Calcium Phosphorus Magnesium AST ALT Lactate Dehydrogenase Total Bilirubin Direct Bilirubin CK-MB (CK-2) C-Reactive Protein NT-Pro-B Natriuret Pep Total Protein Albumin Arterial Blood Glucose Urine WBC (Auto) Urine Creatinine 12/17/19 12/17/19 12/17/19 05:30 06:06 11:50 WBC RBC Hgb Hct MCHC RDW MCV MCH Lymph % (Auto) [facility] % (Auto) [facility] # Eos # Lymph # (Auto) [facility] # (Auto) Eos # (Auto) Seg Neutrophils % Seg Neuts % (Manual) Baso # (Auto) Lymphocytes % (Manual) Monocytes % (Manual) Eosinophils % (Manual) Basophils % (Manual) Seg Neutrophils # Seg Neutrophils # Man Lymphocytes # (Manual) Monocytes # (Manual) Eosinophils # (Manual) Nucleated RBC % Basophils # (Manual) PT INR APTT Heparin Anti-Xa Level ABG pH POC ABG pO2 ABG pO2 ABG HCO3 ABG O2 Saturation ABG Base Excess POC ABG pCO2 ABG Hemoglobin ABG Oxyhemoglobin ABG Chloride ABG Glucose Oxyhemoglobin Sodium Potassium Chloride 97.4 L Carbon Dioxide 32 H BUN Creatinine 0.5 L Glucose 135 H POC Glucose 151 H 140 H Lactic Acid Calcium Phosphorus Magnesium AST ALT Lactate Dehydrogenase Total Bilirubin Direct Bilirubin CK-MB (CK-2) C-Reactive Protein NT-Pro-B Natriuret Pep Total Protein Albumin Arterial Blood Glucose Urine WBC (Auto) Urine Creatinine 12/17/19 12/17/19 12/18/19 17:50 23:46 05:17 WBC RBC Hgb 8.8 L Hct 28.0 L MCHC RDW MCV MCH Lymph % (Auto) [facility] % (Auto) [facility] # Eos # Lymph # (Auto) [facility] # (Auto) Eos # (Auto) Seg Neutrophils % Seg Neuts % (Manual) Baso # (Auto) Lymphocytes % (Manual) Monocytes % (Manual) Eosinophils % (Manual) Basophils % (Manual) Seg Neutrophils # Seg Neutrophils # Man Lymphocytes # (Manual) Monocytes # (Manual) Eosinophils # (Manual) Nucleated RBC % Basophils # (Manual) PT INR APTT Heparin Anti-Xa Level ABG pH POC ABG pO2 ABG pO2 ABG HCO3 ABG O2 Saturation ABG Base Excess POC ABG pCO2 ABG Hemoglobin ABG Oxyhemoglobin ABG Chloride ABG Glucose Oxyhemoglobin Sodium Potassium Chloride Carbon Dioxide BUN Creatinine Glucose POC Glucose 158 H 150 H Lactic Acid Calcium Phosphorus Magnesium AST ALT Lactate Dehydrogenase Total Bilirubin Direct Bilirubin CK-MB (CK-2) C-Reactive Protein NT-Pro-B Natriuret Pep Total Protein Albumin Arterial Blood Glucose Urine WBC (Auto) Urine Creatinine 12/18/19 12/18/19 12/18/19 05:17 05:49 11:12 WBC RBC Hgb Hct MCHC RDW MCV MCH Lymph % (Auto) [facility] % (Auto) [facility] # Eos # Lymph # (Auto) [facility] # (Auto) Eos # (Auto) Seg Neutrophils % Seg Neuts % (Manual) Baso # (Auto) Lymphocytes % (Manual) Monocytes % (Manual) Eosinophils % (Manual) Basophils % (Manual) Seg Neutrophils # Seg Neutrophils # Man Lymphocytes # (Manual) Monocytes # (Manual) Eosinophils # (Manual) Nucleated RBC % Basophils # (Manual) PT INR APTT Heparin Anti-Xa Level 0.16 L ABG pH POC ABG pO2 ABG pO2 ABG HCO3 ABG O2 Saturation ABG Base Excess POC ABG pCO2 ABG Hemoglobin ABG Oxyhemoglobin ABG Chloride ABG Glucose Oxyhemoglobin Sodium Potassium Chloride Carbon Dioxide BUN Creatinine Glucose POC Glucose 127 H 191 H Lactic Acid Calcium Phosphorus Magnesium AST ALT Lactate Dehydrogenase Total Bilirubin Direct Bilirubin CK-MB (CK-2) C-Reactive Protein NT-Pro-B Natriuret Pep Total Protein Albumin Arterial Blood Glucose Urine WBC (Auto) Urine Creatinine 12/18/19 12/18/19 12/19/19 17:03 20:16 00:08 WBC RBC Hgb Hct MCHC RDW MCV MCH Lymph % (Auto) [facility] % (Auto) [facility] # Eos # Lymph # (Auto) [facility] # (Auto) Eos # (Auto) Seg Neutrophils % Seg Neuts % (Manual) Baso # (Auto) Lymphocytes % (Manual) Monocytes % (Manual) Eosinophils % (Manual) Basophils % (Manual) Seg Neutrophils # Seg Neutrophils # Man Lymphocytes # (Manual) Monocytes # (Manual) Eosinophils # (Manual) Nucleated RBC % Basophils # (Manual) PT INR APTT Heparin Anti-Xa Level ABG pH POC ABG pO2 ABG pO2 ABG HCO3 ABG O2 Saturation ABG Base Excess POC ABG pCO2 ABG Hemoglobin ABG Oxyhemoglobin ABG Chloride ABG Glucose Oxyhemoglobin Sodium Potassium Chloride Carbon Dioxide BUN Creatinine Glucose POC Glucose 133 H 128 H 129 H Lactic Acid Calcium Phosphorus Magnesium AST ALT Lactate Dehydrogenase Total Bilirubin Direct Bilirubin CK-MB (CK-2) C-Reactive Protein NT-Pro-B Natriuret Pep Total Protein Albumin Arterial Blood Glucose Urine WBC (Auto) Urine Creatinine 12/19/19 12/19/19 12/19/19 04:45 04:45 05:35 WBC RBC Hgb Hct MCHC RDW MCV MCH Lymph % (Auto) [facility] % (Auto) [facility] # Eos # Lymph # (Auto) [facility] # (Auto) Eos # (Auto) Seg Neutrophils % Seg Neuts % (Manual) Baso # (Auto) Lymphocytes % (Manual) Monocytes % (Manual) Eosinophils % (Manual) Basophils % (Manual) Seg Neutrophils # Seg Neutrophils # Man Lymphocytes # (Manual) Monocytes # (Manual) Eosinophils # (Manual) Nucleated RBC % Basophils # (Manual) PT INR APTT Heparin Anti-Xa Level 0.17 L ABG pH POC ABG pO2 ABG pO2 ABG HCO3 ABG O2 Saturation ABG Base Excess POC ABG pCO2 ABG Hemoglobin ABG Oxyhemoglobin ABG Chloride ABG Glucose Oxyhemoglobin Sodium Potassium Chloride Carbon Dioxide BUN Creatinine Glucose POC Glucose 120 H Lactic Acid Calcium Phosphorus Magnesium AST ALT Lactate Dehydrogenase 228 H Total Bilirubin Direct Bilirubin CK-MB (CK-2) C-Reactive Protein NT-Pro-B Natriuret Pep Total Protein Albumin Arterial Blood Glucose Urine WBC (Auto) Urine Creatinine 12/19/19 12/19/19 12/19/19 09:20 11:32 11:32 WBC 14.6 H RBC 3.08 L Hgb 9.0 L Hct 26.8 L MCHC RDW 15.9 H MCV MCH Lymph % (Auto) [facility] % (Auto) [facility] # Eos # Lymph # (Auto) [facility] # (Auto) Eos # (Auto) Seg Neutrophils % Seg Neuts % (Manual) 82.0 H Baso # (Auto) Lymphocytes % (Manual) 10.0 L Monocytes % (Manual) Eosinophils % (Manual) Basophils % (Manual) Seg Neutrophils # Seg Neutrophils # Man 12.0 H Lymphocytes # (Manual) Monocytes # (Manual) 0.9 H Eosinophils # (Manual) Nucleated RBC % 1.0 H Basophils # (Manual) PT INR APTT Heparin Anti-Xa Level ABG pH 7.451 H POC ABG pO2 ABG pO2 62.6 L ABG HCO3 33.2 H ABG O2 Saturation 93.8 L ABG Base Excess 8.3 H POC ABG pCO2 ABG Hemoglobin 8.3 L ABG Oxyhemoglobin ABG Chloride ABG Glucose Oxyhemoglobin 91.9 L Sodium Potassium Chloride 95.0 L Carbon Dioxide 33 H BUN 22 H Creatinine 0.6 L Glucose 150 H POC Glucose Lactic Acid Calcium Phosphorus Magnesium AST ALT Lactate Dehydrogenase Total Bilirubin Direct Bilirubin CK-MB (CK-2) C-Reactive Protein NT-Pro-B Natriuret Pep Total Protein 6.2 L Albumin 2.4 L Arterial Blood Glucose Urine WBC (Auto) Urine Creatinine 12/19/19 12/19/19 12/20/19 11:56 18:17 00:09 WBC RBC Hgb Hct MCHC RDW MCV MCH Lymph % (Auto) [facility] % (Auto) [facility] # Eos # Lymph # (Auto) [facility] # (Auto) Eos # (Auto) Seg Neutrophils % Seg Neuts % (Manual) Baso # (Auto) Lymphocytes % (Manual) Monocytes % (Manual) Eosinophils % (Manual) Basophils % (Manual) Seg Neutrophils # Seg Neutrophils # Man Lymphocytes # (Manual) Monocytes # (Manual) Eosinophils # (Manual) Nucleated RBC % Basophils # (Manual) PT INR APTT Heparin Anti-Xa Level ABG pH POC ABG pO2 ABG pO2 ABG HCO3 ABG O2 Saturation ABG Base Excess POC ABG pCO2 ABG Hemoglobin ABG Oxyhemoglobin ABG Chloride ABG Glucose Oxyhemoglobin Sodium Potassium Chloride Carbon Dioxide BUN Creatinine Glucose POC Glucose 156 H 156 H 155 H Lactic Acid Calcium Phosphorus Magnesium AST ALT Lactate Dehydrogenase Total Bilirubin Direct Bilirubin CK-MB (CK-2) C-Reactive Protein NT-Pro-B Natriuret Pep Total Protein Albumin Arterial Blood Glucose Urine WBC (Auto) Urine Creatinine 12/20/19 12/20/19 12/20/19 05:26 06:02 18:17 WBC RBC Hgb Hct MCHC RDW MCV MCH Lymph % (Auto) [facility] % (Auto) [facility] # Eos # Lymph # (Auto) [facility] # (Auto) Eos # (Auto) Seg Neutrophils % Seg Neuts % (Manual) Baso # (Auto) Lymphocytes % (Manual) Monocytes % (Manual) Eosinophils % (Manual) Basophils % (Manual) Seg Neutrophils # Seg Neutrophils # Man Lymphocytes # (Manual) Monocytes # (Manual) Eosinophils # (Manual) Nucleated RBC % Basophils # (Manual) PT INR APTT Heparin Anti-Xa Level 0.19 L ABG pH POC ABG pO2 ABG pO2 ABG HCO3 ABG O2 Saturation ABG Base Excess POC ABG pCO2 ABG Hemoglobin ABG Oxyhemoglobin ABG Chloride ABG Glucose Oxyhemoglobin Sodium Potassium Chloride Carbon Dioxide BUN Creatinine Glucose POC Glucose 137 H 128 H Lactic Acid Calcium Phosphorus Magnesium AST ALT Lactate Dehydrogenase Total Bilirubin Direct Bilirubin CK-MB (CK-2) C-Reactive Protein NT-Pro-B Natriuret Pep Total Protein Albumin Arterial Blood Glucose Urine WBC (Auto) Urine Creatinine 12/20/19 12/21/19 12/21/19 23:34 05:31 05:31 WBC 12.7 H RBC 3.09 L Hgb 8.9 L Hct 27.4 L MCHC RDW 15.8 H MCV MCH Lymph % (Auto) 12.[address] [facility] % (Auto) 7.[address] [facility] # Eos # Lymph # (Auto) [facility] # (Auto) 1.0 H Eos # (Auto) Seg Neutrophils % 77.1 H Seg Neuts % (Manual) Baso # (Auto) Lymphocytes % (Manual) Monocytes % (Manual) Eosinophils % (Manual) Basophils % (Manual) Seg Neutrophils # 9.8 H Seg Neutrophils # Man Lymphocytes # (Manual) Monocytes # (Manual) Eosinophils # (Manual) Nucleated RBC % Basophils # (Manual) PT INR APTT Heparin Anti-Xa Level ABG pH POC ABG pO2 ABG pO2 ABG HCO3 ABG O2 Saturation ABG Base Excess POC ABG pCO2 ABG Hemoglobin ABG Oxyhemoglobin ABG Chloride ABG Glucose Oxyhemoglobin Sodium Potassium Chloride 96.9 L Carbon Dioxide 37 H BUN 27 H Creatinine 0.7 L Glucose 140 H POC Glucose 145 H Lactic Acid Calcium Phosphorus Magnesium AST ALT Lactate Dehydrogenase Total Bilirubin Direct Bilirubin CK-MB (CK-2) C-Reactive Protein NT-Pro-B Natriuret Pep Total Protein Albumin Arterial Blood Glucose Urine WBC (Auto) Urine Creatinine 12/21/19 12/21/19 12/21/19 05:38 10:13 11:51 WBC RBC Hgb Hct MCHC RDW MCV MCH Lymph % (Auto) [facility] % (Auto) [facility] # Eos # Lymph # (Auto) [facility] # (Auto) Eos # (Auto) Seg Neutrophils % Seg Neuts % (Manual) Baso # (Auto) Lymphocytes % (Manual) Monocytes % (Manual) Eosinophils % (Manual) Basophils % (Manual) Seg Neutrophils # Seg Neutrophils # Man Lymphocytes # (Manual) Monocytes # (Manual) Eosinophils # (Manual) Nucleated RBC % Basophils # (Manual) PT INR APTT 23.9 L Heparin Anti-Xa Level < 0.10 L ABG pH POC ABG pO2 ABG pO2 ABG HCO3 ABG O2 Saturation ABG Base Excess POC ABG pCO2 ABG Hemoglobin ABG Oxyhemoglobin ABG Chloride ABG Glucose Oxyhemoglobin Sodium Potassium Chloride Carbon Dioxide BUN Creatinine Glucose POC Glucose 151 H 145 H Lactic Acid Calcium Phosphorus Magnesium AST ALT Lactate Dehydrogenase Total Bilirubin Direct Bilirubin CK-MB (CK-2) C-Reactive Protein NT-Pro-B Natriuret Pep Total Protein Albumin Arterial Blood Glucose Urine WBC (Auto) Urine Creatinine 12/21/19 12/22/19 12/22/19 17:16 00:01 01:33 WBC RBC Hgb Hct MCHC RDW MCV MCH Lymph % (Auto) [facility] % (Auto) [facility] # Eos # Lymph # (Auto) [facility] # (Auto) Eos # (Auto) Seg Neutrophils % Seg Neuts % (Manual) Baso # (Auto) Lymphocytes % (Manual) Monocytes % (Manual) Eosinophils % (Manual) Basophils % (Manual) Seg Neutrophils # Seg Neutrophils # Man Lymphocytes # (Manual) Monocytes # (Manual) Eosinophils # (Manual) Nucleated RBC % Basophils # (Manual) PT INR APTT Heparin Anti-Xa Level 0.10 L ABG pH POC ABG pO2 ABG pO2 ABG HCO3 ABG O2 Saturation ABG Base Excess POC ABG pCO2 ABG Hemoglobin ABG Oxyhemoglobin ABG Chloride ABG Glucose Oxyhemoglobin Sodium Potassium Chloride Carbon Dioxide BUN Creatinine Glucose POC Glucose 167 H 179 H Lactic Acid Calcium Phosphorus Magnesium AST ALT Lactate Dehydrogenase Total Bilirubin Direct Bilirubin CK-MB (CK-2) C-Reactive Protein NT-Pro-B Natriuret Pep Total Protein Albumin Arterial Blood Glucose Urine WBC (Auto) Urine Creatinine 12/22/19 12/22/19 12/22/19 03:22 05:10 05:10 WBC 13.8 H RBC 3.20 L Hgb 8.9 L Hct 28.1 L MCHC RDW 15.9 H MCV MCH Lymph % (Auto) [facility] % (Auto) [facility] # Eos # Lymph # (Auto) [facility] # (Auto) Eos # (Auto) Seg Neutrophils % Seg Neuts % (Manual) Baso # (Auto) Lymphocytes % (Manual) Monocytes % (Manual) Eosinophils % (Manual) Basophils % (Manual) Seg Neutrophils # Seg Neutrophils # Man Lymphocytes # (Manual) Monocytes # (Manual) Eosinophils # (Manual) Nucleated RBC % Basophils # (Manual) PT INR APTT Heparin Anti-Xa Level ABG pH POC ABG pO2 52.3 L ABG pO2 ABG HCO3 ABG O2 Saturation ABG Base Excess POC ABG pCO2 52.9 H ABG Hemoglobin 10.7 L ABG Oxyhemoglobin 84 L ABG Chloride ABG Glucose Oxyhemoglobin Sodium Potassium Chloride 96.6 L Carbon Dioxide BUN 25 H Creatinine 0.7 L Glucose 129 H POC Glucose Lactic Acid Calcium Phosphorus Magnesium AST ALT Lactate Dehydrogenase Total Bilirubin Direct Bilirubin CK-MB (CK-2) C-Reactive Protein NT-Pro-B Natriuret Pep Total Protein Albumin Arterial Blood Glucose Urine WBC (Auto) Urine Creatinine 12/22/19 12/22/19 12/22/19 05:18 12:32 12:43 WBC RBC Hgb Hct MCHC RDW MCV MCH Lymph % (Auto) [facility] % (Auto) [facility] # Eos # Lymph # (Auto) [facility] # (Auto) Eos # (Auto) Seg Neutrophils % Seg Neuts % (Manual) Baso # (Auto) Lymphocytes % (Manual) Monocytes % (Manual) Eosinophils % (Manual) Basophils % (Manual) Seg Neutrophils # Seg Neutrophils # Man Lymphocytes # (Manual) Monocytes # (Manual) Eosinophils # (Manual) Nucleated RBC % Basophils # (Manual) PT INR APTT Heparin Anti-Xa Level 0.18 L ABG pH POC ABG pO2 ABG pO2 ABG HCO3 ABG O2 Saturation ABG Base Excess POC ABG pCO2 ABG Hemoglobin ABG Oxyhemoglobin ABG Chloride ABG Glucose Oxyhemoglobin Sodium Potassium Chloride Carbon Dioxide BUN Creatinine Glucose POC Glucose 131 H 208 H Lactic Acid Calcium Phosphorus Magnesium AST ALT Lactate Dehydrogenase Total Bilirubin Direct Bilirubin CK-MB (CK-2) C-Reactive Protein NT-Pro-B Natriuret Pep Total Protein Albumin Arterial Blood Glucose Urine WBC (Auto) Urine Creatinine 12/22/19 12/22/19 12/23/19 17:44 23:20 03:51 WBC 15.2 H RBC 3.43 L Hgb 9.6 L Hct 30.3 L MCHC RDW 15.9 H MCV MCH Lymph % (Auto) [facility] % (Auto) [facility] # Eos # Lymph # (Auto) [facility] # (Auto) Eos # (Auto) Seg Neutrophils % Seg Neuts % (Manual) Baso # (Auto) Lymphocytes % (Manual) Monocytes % (Manual) Eosinophils % (Manual) Basophils % (Manual) Seg Neutrophils # Seg Neutrophils # Man Lymphocytes # (Manual) Monocytes # (Manual) Eosinophils # (Manual) Nucleated RBC % Basophils # (Manual) PT INR APTT Heparin Anti-Xa Level ABG pH POC ABG pO2 ABG pO2 ABG HCO3 ABG O2 Saturation ABG Base Excess POC ABG pCO2 ABG Hemoglobin ABG Oxyhemoglobin ABG Chloride ABG Glucose Oxyhemoglobin Sodium Potassium Chloride Carbon Dioxide BUN Creatinine Glucose POC Glucose 209 H 119 H Lactic Acid Calcium Phosphorus Magnesium AST ALT Lactate Dehydrogenase Total Bilirubin Direct Bilirubin CK-MB (CK-2) C-Reactive Protein NT-Pro-B Natriuret Pep Total Protein Albumin Arterial Blood Glucose Urine WBC (Auto) Urine Creatinine 12/23/19 12/23/19 12/23/19 03:51 05:31 12:09 WBC RBC Hgb Hct MCHC RDW MCV MCH Lymph % (Auto) [facility] % (Auto) [facility] # Eos # Lymph # (Auto) [facility] # (Auto) Eos # (Auto) Seg Neutrophils % Seg Neuts % (Manual) Baso # (Auto) Lymphocytes % (Manual) Monocytes % (Manual) Eosinophils % (Manual) Basophils % (Manual) Seg Neutrophils # Seg Neutrophils # Man Lymphocytes # (Manual) Monocytes # (Manual) Eosinophils # (Manual) Nucleated RBC % Basophils # (Manual) PT INR APTT Heparin Anti-Xa Level ABG pH POC ABG pO2 ABG pO2 ABG HCO3 ABG O2 Saturation ABG Base Excess POC ABG pCO2 ABG Hemoglobin ABG Oxyhemoglobin ABG Chloride ABG Glucose Oxyhemoglobin Sodium Potassium Chloride 97.2 L Carbon Dioxide 31 H BUN 23 H Creatinine 0.6 L Glucose 153 H POC Glucose 149 H 144 H Lactic Acid Calcium Phosphorus Magnesium AST ALT Lactate Dehydrogenase Total Bilirubin Direct Bilirubin CK-MB (CK-2) C-Reactive Protein NT-Pro-B Natriuret Pep Total Protein Albumin Arterial Blood Glucose Urine WBC (Auto) Urine Creatinine 12/23/19 12/23/19 12/23/19 15:30 17:49 23:31 WBC RBC Hgb Hct MCHC RDW MCV MCH Lymph % (Auto) [facility] % (Auto) [facility] # Eos # Lymph # (Auto) [facility] # (Auto) Eos # (Auto) Seg Neutrophils % Seg Neuts % (Manual) Baso # (Auto) Lymphocytes % (Manual) Monocytes % (Manual) Eosinophils % (Manual) Basophils % (Manual) Seg Neutrophils # Seg Neutrophils # Man Lymphocytes # (Manual) Monocytes # (Manual) Eosinophils # (Manual) Nucleated RBC % Basophils # (Manual) PT INR APTT Heparin Anti-Xa Level 0.21 L ABG pH POC ABG pO2 ABG pO2 ABG HCO3 ABG O2 Saturation ABG Base Excess POC ABG pCO2 ABG Hemoglobin ABG Oxyhemoglobin ABG Chloride ABG Glucose Oxyhemoglobin Sodium Potassium Chloride Carbon Dioxide BUN Creatinine Glucose POC Glucose 192 H 151 H Lactic Acid Calcium Phosphorus Magnesium AST ALT Lactate Dehydrogenase Total Bilirubin Direct Bilirubin CK-MB (CK-2) C-Reactive Protein NT-Pro-B Natriuret Pep Total Protein Albumin Arterial Blood Glucose Urine WBC (Auto) Urine Creatinine 12/24/19 12/24/19 12/24/19 05:34 12:13 16:50 WBC RBC Hgb Hct MCHC RDW MCV MCH Lymph % (Auto) [facility] % (Auto) [facility] # Eos # Lymph # (Auto) [facility] # (Auto) Eos # (Auto) Seg Neutrophils % Seg Neuts % (Manual) Baso # (Auto) Lymphocytes % (Manual) Monocytes % (Manual) Eosinophils % (Manual) Basophils % (Manual) Seg Neutrophils # Seg Neutrophils # Man Lymphocytes # (Manual) Monocytes # (Manual) Eosinophils # (Manual) Nucleated RBC % Basophils # (Manual) PT INR APTT Heparin Anti-Xa Level 0.16 L ABG pH POC ABG pO2 ABG pO2 ABG HCO3 ABG O2 Saturation ABG Base Excess POC ABG pCO2 ABG Hemoglobin ABG Oxyhemoglobin ABG Chloride ABG Glucose Oxyhemoglobin Sodium Potassium Chloride Carbon Dioxide BUN Creatinine Glucose POC Glucose 145 H 124 H Lactic Acid Calcium Phosphorus Magnesium AST ALT Lactate Dehydrogenase Total Bilirubin Direct Bilirubin CK-MB (CK-2) C-Reactive Protein NT-Pro-B Natriuret Pep Total Protein Albumin Arterial Blood Glucose Urine WBC (Auto) Urine Creatinine 12/24/19 12/25/19 12/25/19 17:53 00:14 04:18 WBC 12.9 H RBC 3.30 L Hgb 9.1 L Hct 28.8 L MCHC RDW 16.4 H MCV MCH Lymph % (Auto) [facility] % (Auto) 7.[address] [facility] # Eos # Lymph # (Auto) [facility] # (Auto) 1.0 H Eos # (Auto) Seg Neutrophils % 75.5 H Seg Neuts % (Manual) Baso # (Auto) Lymphocytes % (Manual) Monocytes % (Manual) Eosinophils % (Manual) Basophils % (Manual) Seg Neutrophils # 9.7 H Seg Neutrophils # Man Lymphocytes # (Manual) Monocytes # (Manual) Eosinophils # (Manual) Nucleated RBC % Basophils # (Manual) PT INR APTT Heparin Anti-Xa Level ABG pH POC ABG pO2 ABG pO2 ABG HCO3 ABG O2 Saturation ABG Base Excess POC ABG pCO2 ABG Hemoglobin ABG Oxyhemoglobin ABG Chloride ABG Glucose Oxyhemoglobin Sodium Potassium Chloride Carbon Dioxide BUN Creatinine Glucose POC Glucose 164 H 148 H Lactic Acid Calcium Phosphorus Magnesium AST ALT Lactate Dehydrogenase Total Bilirubin Direct Bilirubin CK-MB (CK-2) C-Reactive Protein NT-Pro-B Natriuret Pep Total Protein Albumin Arterial Blood Glucose Urine WBC (Auto) Urine Creatinine 12/25/19 12/25/19 12/25/19 04:18 05:38 11:44 WBC RBC Hgb Hct MCHC RDW MCV MCH Lymph % (Auto) [facility] % (Auto) [facility] # Eos # Lymph # (Auto) [facility] # (Auto) Eos # (Auto) Seg Neutrophils % Seg Neuts % (Manual) Baso # (Auto) Lymphocytes % (Manual) Monocytes % (Manual) Eosinophils % (Manual) Basophils % (Manual) Seg Neutrophils # Seg Neutrophils # Man Lymphocytes # (Manual) Monocytes # (Manual) Eosinophils # (Manual) Nucleated RBC % Basophils # (Manual) PT INR APTT Heparin Anti-Xa Level ABG pH POC ABG pO2 ABG pO2 ABG HCO3 ABG O2 Saturation ABG Base Excess POC ABG pCO2 ABG Hemoglobin ABG Oxyhemoglobin ABG Chloride ABG Glucose Oxyhemoglobin Sodium Potassium Chloride Carbon Dioxide 33 H BUN 27 H Creatinine 0.6 L Glucose 132 H POC Glucose 152 H 166 H Lactic Acid Calcium Phosphorus Magnesium AST ALT Lactate Dehydrogenase Total Bilirubin Direct Bilirubin CK-MB (CK-2) C-Reactive Protein NT-Pro-B Natriuret Pep Total Protein Albumin Arterial Blood Glucose Urine WBC (Auto) Urine Creatinine 12/25/19 12/26/19 12/26/19 18:29 00:17 00:18 WBC RBC Hgb Hct MCHC RDW MCV MCH Lymph % (Auto) [facility] % (Auto) [facility] # Eos # Lymph # (Auto) [facility] # (Auto) Eos # (Auto) Seg Neutrophils % Seg Neuts % (Manual) Baso # (Auto) Lymphocytes % (Manual) Monocytes % (Manual) Eosinophils % (Manual) Basophils % (Manual) Seg Neutrophils # Seg Neutrophils # Man Lymphocytes # (Manual) Monocytes # (Manual) Eosinophils # (Manual) Nucleated RBC % Basophils # (Manual) PT INR APTT Heparin Anti-Xa Level ABG pH POC ABG pO2 ABG pO2 ABG HCO3 ABG O2 Saturation ABG Base Excess POC ABG pCO2 ABG Hemoglobin ABG Oxyhemoglobin ABG Chloride ABG Glucose Oxyhemoglobin Sodium Potassium Chloride 97.8 L Carbon Dioxide BUN 25 H Creatinine 0.6 L Glucose 140 H POC Glucose 194 H 151 H Lactic Acid Calcium Phosphorus Magnesium AST ALT Lactate Dehydrogenase Total Bilirubin Direct Bilirubin CK-MB (CK-2) C-Reactive Protein NT-Pro-B Natriuret Pep Total Protein Albumin Arterial Blood Glucose Urine WBC (Auto) Urine Creatinine 12/26/19 12/26/19 12/26/19 05:36 11:41 17:50 WBC RBC Hgb Hct MCHC RDW MCV MCH Lymph % (Auto) [facility] % (Auto) [facility] # Eos # Lymph # (Auto) [facility] # (Auto) Eos # (Auto) Seg Neutrophils % Seg Neuts % (Manual) Baso # (Auto) Lymphocytes % (Manual) Monocytes % (Manual) Eosinophils % (Manual) Basophils % (Manual) Seg Neutrophils # Seg Neutrophils # Man Lymphocytes # (Manual) Monocytes # (Manual) Eosinophils # (Manual) Nucleated RBC % Basophils # (Manual) PT INR APTT Heparin Anti-Xa Level ABG pH POC ABG pO2 ABG pO2 ABG HCO3 ABG O2 Saturation ABG Base Excess POC ABG pCO2 ABG Hemoglobin ABG Oxyhemoglobin ABG Chloride ABG Glucose Oxyhemoglobin Sodium Potassium Chloride Carbon Dioxide BUN Creatinine Glucose POC Glucose 156 H 148 H 139 H Lactic Acid Calcium Phosphorus Magnesium AST ALT Lactate Dehydrogenase Total Bilirubin Direct Bilirubin CK-MB (CK-2) C-Reactive Protein NT-Pro-B Natriuret Pep Total Protein Albumin Arterial Blood Glucose Urine WBC (Auto) Urine Creatinine 12/26/19 12/27/19 12/27/19 23:19 05:34 12:02 WBC RBC Hgb Hct MCHC RDW MCV MCH Lymph % (Auto) [facility] % (Auto) [facility] # Eos # Lymph # (Auto) [facility] # (Auto) Eos # (Auto) Seg Neutrophils % Seg Neuts % (Manual) Baso # (Auto) Lymphocytes % (Manual) Monocytes % (Manual) Eosinophils % (Manual) Basophils % (Manual) Seg Neutrophils # Seg Neutrophils # Man Lymphocytes # (Manual) Monocytes # (Manual) Eosinophils # (Manual) Nucleated RBC % Basophils # (Manual) PT INR APTT Heparin Anti-Xa Level ABG pH POC ABG pO2 ABG pO2 ABG HCO3 ABG O2 Saturation ABG Base Excess POC ABG pCO2 ABG Hemoglobin ABG Oxyhemoglobin ABG Chloride ABG Glucose Oxyhemoglobin Sodium Potassium Chloride Carbon Dioxide BUN Creatinine Glucose POC Glucose 161 H 145 H 157 H Lactic Acid Calcium Phosphorus Magnesium AST ALT Lactate Dehydrogenase Total Bilirubin Direct Bilirubin CK-MB (CK-2) C-Reactive Protein NT-Pro-B Natriuret Pep Total Protein Albumin Arterial Blood Glucose Urine WBC (Auto) Urine Creatinine 12/27/19 12/27/19 12/27/19 17:35 20:11 23:00 WBC RBC Hgb Hct MCHC RDW MCV MCH Lymph % (Auto) [facility] % (Auto) [facility] # Eos # Lymph # (Auto) [facility] # (Auto) Eos # (Auto) Seg Neutrophils % Seg Neuts % (Manual) Baso # (Auto) Lymphocytes % (Manual) Monocytes % (Manual) Eosinophils % (Manual) Basophils % (Manual) Seg Neutrophils # Seg Neutrophils # Man Lymphocytes # (Manual) Monocytes # (Manual) Eosinophils # (Manual) Nucleated RBC % Basophils # (Manual) PT INR APTT Heparin Anti-Xa Level 0.19 L ABG pH POC ABG pO2 ABG pO2 ABG HCO3 ABG O2 Saturation ABG Base Excess POC ABG pCO2 ABG Hemoglobin ABG Oxyhemoglobin ABG Chloride ABG Glucose Oxyhemoglobin Sodium Potassium Chloride Carbon Dioxide BUN Creatinine Glucose POC Glucose 158 H 155 H Lactic Acid Calcium Phosphorus Magnesium AST ALT Lactate Dehydrogenase Total Bilirubin Direct Bilirubin CK-MB (CK-2) C-Reactive Protein NT-Pro-B Natriuret Pep Total Protein Albumin Arterial Blood Glucose Urine WBC (Auto) Urine Creatinine 12/27/19 12/28/19 12/28/19 23:45 02:41 02:41 WBC 13.0 H RBC 3.48 L Hgb 9.5 L Hct 30.6 L MCHC 31 L RDW 16.6 H MCV MCH 27 L Lymph % (Auto) 13.[address] [facility] % (Auto) 8.[address] [facility] # Eos # Lymph # (Auto) [facility] # (Auto) 1.0 H Eos # (Auto) Seg Neutrophils % 76.3 H Seg Neuts % (Manual) Baso # (Auto) Lymphocytes % (Manual) Monocytes % (Manual) Eosinophils % (Manual) Basophils % (Manual) Seg Neutrophils # 9.9 H Seg Neutrophils # Man Lymphocytes # (Manual) Monocytes # (Manual) Eosinophils # (Manual) Nucleated RBC % Basophils # (Manual) PT INR APTT Heparin Anti-Xa Level ABG pH POC ABG pO2 ABG pO2 ABG HCO3 ABG O2 Saturation ABG Base Excess POC ABG pCO2 ABG Hemoglobin ABG Oxyhemoglobin ABG Chloride ABG Glucose Oxyhemoglobin Sodium Potassium Chloride Carbon Dioxide BUN 22 H Creatinine 0.6 L Glucose 101 H POC Glucose 130 H Lactic Acid Calcium Phosphorus Magnesium AST ALT Lactate Dehydrogenase Total Bilirubin Direct Bilirubin CK-MB (CK-2) C-Reactive Protein NT-Pro-B Natriuret Pep Total Protein Albumin Arterial Blood Glucose Urine WBC (Auto) Urine Creatinine 12/28/19 12/28/19 12/28/19 06:00 12:34 18:13 WBC RBC Hgb Hct MCHC RDW MCV MCH Lymph % (Auto) [facility] % (Auto) [facility] # Eos # Lymph # (Auto) [facility] # (Auto) Eos # (Auto) Seg Neutrophils % Seg Neuts % (Manual) Baso # (Auto) Lymphocytes % (Manual) Monocytes % (Manual) Eosinophils % (Manual) Basophils % (Manual) Seg Neutrophils # Seg Neutrophils # Man Lymphocytes # (Manual) Monocytes # (Manual) Eosinophils # (Manual) Nucleated RBC % Basophils # (Manual) PT INR APTT Heparin Anti-Xa Level ABG pH POC ABG pO2 ABG pO2 ABG HCO3 ABG O2 Saturation ABG Base Excess POC ABG pCO2 ABG Hemoglobin ABG Oxyhemoglobin ABG Chloride ABG Glucose Oxyhemoglobin Sodium Potassium Chloride Carbon Dioxide BUN Creatinine Glucose POC Glucose 150 H 161 H 128 H Lactic Acid Calcium Phosphorus Magnesium AST ALT Lactate Dehydrogenase Total Bilirubin Direct Bilirubin CK-MB (CK-2) C-Reactive Protein NT-Pro-B Natriuret Pep Total Protein Albumin Arterial Blood Glucose Urine WBC (Auto) Urine Creatinine 12/28/19 12/29/19 12/29/19 23:36 05:21 11:40 WBC RBC Hgb Hct MCHC RDW MCV MCH Lymph % (Auto) [facility] % (Auto) [facility] # Eos # Lymph # (Auto) [facility] # (Auto) Eos # (Auto) Seg Neutrophils % Seg Neuts % (Manual) Baso # (Auto) Lymphocytes % (Manual) Monocytes % (Manual) Eosinophils % (Manual) Basophils % (Manual) Seg Neutrophils # Seg Neutrophils # Man Lymphocytes # (Manual) Monocytes # (Manual) Eosinophils # (Manual) Nucleated RBC % Basophils # (Manual) PT INR APTT Heparin Anti-Xa Level ABG pH POC ABG pO2 ABG pO2 ABG HCO3 ABG O2 Saturation ABG Base Excess POC ABG pCO2 ABG Hemoglobin ABG Oxyhemoglobin ABG Chloride ABG Glucose Oxyhemoglobin Sodium Potassium Chloride Carbon Dioxide BUN Creatinine Glucose POC Glucose 137 H 136 H 166 H Lactic Acid Calcium Phosphorus Magnesium AST ALT Lactate Dehydrogenase Total Bilirubin Direct Bilirubin CK-MB (CK-2) C-Reactive Protein NT-Pro-B Natriuret Pep Total Protein Albumin Arterial Blood Glucose Urine WBC (Auto) Urine Creatinine 12/29/19 12/29/19 12/29/19 17:23 19:21 23:38 WBC RBC Hgb Hct MCHC RDW MCV MCH Lymph % (Auto) [facility] % (Auto) [facility] # Eos # Lymph # (Auto) [facility] # (Auto) Eos # (Auto) Seg Neutrophils % Seg Neuts % (Manual) Baso # (Auto) Lymphocytes % (Manual) Monocytes % (Manual) Eosinophils % (Manual) Basophils % (Manual) Seg Neutrophils # Seg Neutrophils # Man Lymphocytes # (Manual) Monocytes # (Manual) Eosinophils # (Manual) Nucleated RBC % Basophils # (Manual) PT INR APTT Heparin Anti-Xa Level 0.20 L ABG pH POC ABG pO2 ABG pO2 ABG HCO3 ABG O2 Saturation ABG Base Excess POC ABG pCO2 ABG Hemoglobin ABG Oxyhemoglobin ABG Chloride ABG Glucose Oxyhemoglobin Sodium Potassium Chloride Carbon Dioxide BUN Creatinine Glucose POC Glucose 144 H 141 H Lactic Acid Calcium Phosphorus Magnesium AST ALT Lactate Dehydrogenase Total Bilirubin Direct Bilirubin CK-MB (CK-2) C-Reactive Protein NT-Pro-B Natriuret Pep Total Protein Albumin Arterial Blood Glucose Urine WBC (Auto) Urine Creatinine 12/30/19 12/30/19 12/30/19 03:58 03:58 04:59 WBC RBC 3.54 L Hgb 9.8 L Hct 30.7 L MCHC RDW 16.8 H MCV MCH Lymph % (Auto) [facility] % (Auto) [facility] # Eos # Lymph # (Auto) [facility] # (Auto) Eos # (Auto) Seg Neutrophils % Seg Neuts % (Manual) Baso # (Auto) Lymphocytes % (Manual) Monocytes % (Manual) Eosinophils % (Manual) Basophils % (Manual) Seg Neutrophils # Seg Neutrophils # Man Lymphocytes # (Manual) Monocytes # (Manual) Eosinophils # (Manual) Nucleated RBC % Basophils # (Manual) PT INR APTT Heparin Anti-Xa Level ABG pH POC ABG pO2 ABG pO2 ABG HCO3 29.8 H ABG O2 Saturation ABG Base Excess 4.8 H POC ABG pCO2 ABG Hemoglobin 11.2 L ABG Oxyhemoglobin ABG Chloride ABG Glucose Oxyhemoglobin 93.8 L Sodium Potassium Chloride 97.8 L Carbon Dioxide BUN 26 H Creatinine Glucose 168 H POC Glucose Lactic Acid Calcium Phosphorus Magnesium AST ALT Lactate Dehydrogenase Total Bilirubin Direct Bilirubin CK-MB (CK-2) C-Reactive Protein NT-Pro-B Natriuret Pep Total Protein Albumin Arterial Blood Glucose Urine WBC (Auto) Urine Creatinine 12/30/19 12/30/19 12/30/19 05:45 11:34 17:28 WBC RBC Hgb Hct MCHC RDW MCV MCH Lymph % (Auto) [facility] % (Auto) [facility] # Eos # Lymph # (Auto) [facility] # (Auto) Eos # (Auto) Seg Neutrophils % Seg Neuts % (Manual) Baso # (Auto) Lymphocytes % (Manual) Monocytes % (Manual) Eosinophils % (Manual) Basophils % (Manual) Seg Neutrophils # Seg Neutrophils # Man Lymphocytes # (Manual) Monocytes # (Manual) Eosinophils # (Manual) Nucleated RBC % Basophils # (Manual) PT INR APTT Heparin Anti-Xa Level ABG pH POC ABG pO2 ABG pO2 ABG HCO3 ABG O2 Saturation ABG Base Excess POC ABG pCO2 ABG Hemoglobin ABG Oxyhemoglobin ABG Chloride ABG Glucose Oxyhemoglobin Sodium Potassium Chloride Carbon Dioxide BUN Creatinine Glucose POC Glucose 163 H 180 H 150 H Lactic Acid Calcium Phosphorus Magnesium AST ALT Lactate Dehydrogenase Total Bilirubin Direct Bilirubin CK-MB (CK-2) C-Reactive Protein NT-Pro-B Natriuret Pep Total Protein Albumin Arterial Blood Glucose Urine WBC (Auto) Urine Creatinine 12/30/19 12/31/19 12/31/19 23:43 04:55 05:07 WBC RBC Hgb Hct MCHC RDW MCV MCH Lymph % (Auto) [facility] % (Auto) [facility] # Eos # Lymph # (Auto) [facility] # (Auto) Eos # (Auto) Seg Neutrophils % Seg Neuts % (Manual) Baso # (Auto) Lymphocytes % (Manual) Monocytes % (Manual) Eosinophils % (Manual) Basophils % (Manual) Seg Neutrophils # Seg Neutrophils # Man Lymphocytes # (Manual) Monocytes # (Manual) Eosinophils # (Manual) Nucleated RBC % Basophils # (Manual) PT INR APTT Heparin Anti-Xa Level ABG pH POC ABG pO2 ABG pO2 ABG HCO3 ABG O2 Saturation ABG Base Excess POC ABG pCO2 ABG Hemoglobin ABG Oxyhemoglobin ABG Chloride ABG Glucose Oxyhemoglobin Sodium Potassium 5.6 H D Chloride Carbon Dioxide BUN 33 H Creatinine Glucose 131 H POC Glucose 142 H 134 H Lactic Acid Calcium Phosphorus Magnesium AST ALT Lactate Dehydrogenase Total Bilirubin Direct Bilirubin CK-MB (CK-2) C-Reactive Protein NT-Pro-B Natriuret Pep Total Protein Albumin Arterial Blood Glucose Urine WBC (Auto) Urine Creatinine 12/31/19 12/31/19 12/31/19 11:30 17:19 17:36 WBC RBC Hgb Hct MCHC RDW MCV MCH Lymph % (Auto) [facility] % (Auto) [facility] # Eos # Lymph # (Auto) [facility] # (Auto) Eos # (Auto) Seg Neutrophils % Seg Neuts % (Manual) Baso # (Auto) Lymphocytes % (Manual) Monocytes % (Manual) Eosinophils % (Manual) Basophils % (Manual) Seg Neutrophils # Seg Neutrophils # Man Lymphocytes # (Manual) Monocytes # (Manual) Eosinophils # (Manual) Nucleated RBC % Basophils # (Manual) PT INR APTT Heparin Anti-Xa Level ABG pH POC ABG pO2 ABG pO2 ABG HCO3 ABG O2 Saturation ABG Base Excess POC ABG pCO2 ABG Hemoglobin ABG Oxyhemoglobin ABG Chloride ABG Glucose Oxyhemoglobin Sodium Potassium Chloride Carbon Dioxide BUN 35 H Creatinine Glucose 156 H POC Glucose 158 H 181 H Lactic Acid Calcium Phosphorus Magnesium AST ALT Lactate Dehydrogenase Total Bilirubin Direct Bilirubin CK-MB (CK-2) C-Reactive Protein NT-Pro-B Natriuret Pep Total Protein Albumin Arterial Blood Glucose Urine WBC (Auto) Urine Creatinine 12/31/19 12/31/19 12/31/19 18:16 19:41 21:53 WBC RBC Hgb Hct MCHC RDW MCV MCH Lymph % (Auto) [facility] % (Auto) [facility] # Eos # Lymph # (Auto) [facility] # (Auto) Eos # (Auto) Seg Neutrophils % Seg Neuts % (Manual) Baso # (Auto) Lymphocytes % (Manual) Monocytes % (Manual) Eosinophils % (Manual) Basophils % (Manual) Seg Neutrophils # Seg Neutrophils # Man Lymphocytes # (Manual) Monocytes # (Manual) Eosinophils # (Manual) Nucleated RBC % Basophils # (Manual) PT INR APTT Heparin Anti-Xa Level 0.20 L ABG pH POC ABG pO2 ABG pO2 ABG HCO3 ABG O2 Saturation ABG Base Excess POC ABG pCO2 ABG Hemoglobin ABG Oxyhemoglobin ABG Chloride ABG Glucose Oxyhemoglobin Sodium Potassium Chloride Carbon Dioxide BUN 34 H Creatinine Glucose 169 H POC Glucose 141 H Lactic Acid Calcium Phosphorus Magnesium AST ALT Lactate Dehydrogenase Total Bilirubin Direct Bilirubin CK-MB (CK-2) C-Reactive Protein NT-Pro-B Natriuret Pep Total Protein Albumin Arterial Blood Glucose Urine WBC (Auto) Urine Creatinine 12/31/19 01/01/20 01/01/20 23:51 05:17 10:40 WBC RBC Hgb Hct MCHC RDW MCV MCH Lymph % (Auto) [facility] % (Auto) [facility] # Eos # Lymph # (Auto) [facility] # (Auto) Eos # (Auto) Seg Neutrophils % Seg Neuts % (Manual) Baso # (Auto) Lymphocytes % (Manual) Monocytes % (Manual) Eosinophils % (Manual) Basophils % (Manual) Seg Neutrophils # Seg Neutrophils # Man Lymphocytes # (Manual) Monocytes # (Manual) Eosinophils # (Manual) Nucleated RBC % Basophils # (Manual) PT INR APTT Heparin Anti-Xa Level ABG pH POC ABG pO2 ABG pO2 ABG HCO3 ABG O2 Saturation ABG Base Excess POC ABG pCO2 ABG Hemoglobin ABG Oxyhemoglobin ABG Chloride ABG Glucose Oxyhemoglobin Sodium Potassium Chloride Carbon Dioxide BUN 31 H Creatinine 0.7 L Glucose 137 H POC Glucose 131 H 155 H Lactic Acid Calcium Phosphorus Magnesium AST 73 H ALT 97 H Lactate Dehydrogenase Total Bilirubin Direct Bilirubin CK-MB (CK-2) C-Reactive Protein NT-Pro-B Natriuret Pep 3866 H Total Protein Albumin 2.8 L Arterial Blood Glucose Urine WBC (Auto) Urine Creatinine 01/01/20 01/01/20 01/01/20 12:26 15:33 17:53 WBC 14.3 H RBC 3.35 L Hgb 9.1 L Hct 28.8 L MCHC RDW 17.0 H MCV MCH 27 L Lymph % (Auto) 7.[address] [facility] % (Auto) 7.[address] [facility] # Eos # Lymph # (Auto) 1.[address] [facility] # (Auto) 1.1 H Eos # (Auto) Seg Neutrophils % 83.3 H Seg Neuts % (Manual) Baso # (Auto) Lymphocytes % (Manual) Monocytes % (Manual) Eosinophils % (Manual) Basophils % (Manual) Seg Neutrophils # 12.0 H Seg Neutrophils # Man Lymphocytes # (Manual) Monocytes # (Manual) Eosinophils # (Manual) Nucleated RBC % Basophils # (Manual) PT INR APTT Heparin Anti-Xa Level ABG pH POC ABG pO2 ABG pO2 ABG HCO3 ABG O2 Saturation ABG Base Excess POC ABG pCO2 ABG Hemoglobin ABG Oxyhemoglobin ABG Chloride ABG Glucose Oxyhemoglobin Sodium Potassium Chloride Carbon Dioxide BUN Creatinine Glucose POC Glucose 128 H 128 H Lactic Acid Calcium Phosphorus Magnesium AST ALT Lactate Dehydrogenase Total Bilirubin Direct Bilirubin CK-MB (CK-2) C-Reactive Protein NT-Pro-B Natriuret Pep Total Protein Albumin Arterial Blood Glucose Urine WBC (Auto) Urine Creatinine 01/01/20 01/02/20 01/02/20 23:04 05:39 07:00 WBC RBC Hgb Hct MCHC RDW MCV MCH Lymph % (Auto) [facility] % (Auto) [facility] # Eos # Lymph # (Auto) [facility] # (Auto) Eos # (Auto) Seg Neutrophils % Seg Neuts % (Manual) Baso # (Auto) Lymphocytes % (Manual) Monocytes % (Manual) Eosinophils % (Manual) Basophils % (Manual) Seg Neutrophils # Seg Neutrophils # Man Lymphocytes # (Manual) Monocytes # (Manual) Eosinophils # (Manual) Nucleated RBC % Basophils # (Manual) PT INR APTT Heparin Anti-Xa Level 0.13 L ABG pH POC ABG pO2 ABG pO2 ABG HCO3 ABG O2 Saturation ABG Base Excess POC ABG pCO2 ABG Hemoglobin ABG Oxyhemoglobin ABG Chloride ABG Glucose Oxyhemoglobin Sodium Potassium Chloride Carbon Dioxide BUN Creatinine Glucose POC Glucose 120 H 169 H Lactic Acid Calcium Phosphorus Magnesium AST ALT Lactate Dehydrogenase Total Bilirubin Direct Bilirubin CK-MB (CK-2) C-Reactive Protein NT-Pro-B Natriuret Pep Total Protein Albumin Arterial Blood Glucose Urine WBC (Auto) Urine Creatinine 01/02/20 01/02/20 01/02/20 12:15 14:06 17:58 WBC RBC Hgb Hct MCHC RDW MCV MCH Lymph % (Auto) [facility] % (Auto) [facility] # Eos # Lymph # (Auto) [facility] # (Auto) Eos # (Auto) Seg Neutrophils % Seg Neuts % (Manual) Baso # (Auto) Lymphocytes % (Manual) Monocytes % (Manual) Eosinophils % (Manual) Basophils % (Manual) Seg Neutrophils # Seg Neutrophils # Man Lymphocytes # (Manual) Monocytes # (Manual) Eosinophils # (Manual) Nucleated RBC % Basophils # (Manual) PT INR APTT Heparin Anti-Xa Level < 0.10 L ABG pH POC ABG pO2 ABG pO2 ABG HCO3 ABG O2 Saturation ABG Base Excess POC ABG pCO2 ABG Hemoglobin ABG Oxyhemoglobin ABG Chloride ABG Glucose Oxyhemoglobin Sodium Potassium Chloride Carbon Dioxide BUN Creatinine Glucose POC Glucose 190 H 198 H Lactic Acid Calcium Phosphorus Magnesium AST ALT Lactate Dehydrogenase Total Bilirubin Direct Bilirubin CK-MB (CK-2) C-Reactive Protein NT-Pro-B Natriuret Pep Total Protein Albumin Arterial Blood Glucose Urine WBC (Auto) Urine Creatinine 01/02/20 01/02/20 01/03/20 21:43 23:33 05:42 WBC RBC Hgb Hct MCHC RDW MCV MCH Lymph % (Auto) [facility] % (Auto) [facility] # Eos # Lymph # (Auto) [facility] # (Auto) Eos # (Auto) Seg Neutrophils % Seg Neuts % (Manual) Baso # (Auto) Lymphocytes % (Manual) Monocytes % (Manual) Eosinophils % (Manual) Basophils % (Manual) Seg Neutrophils # Seg Neutrophils # Man Lymphocytes # (Manual) Monocytes # (Manual) Eosinophils # (Manual) Nucleated RBC % Basophils # (Manual) PT INR APTT Heparin Anti-Xa Level 0.10 L ABG pH POC ABG pO2 ABG pO2 ABG HCO3 ABG O2 Saturation ABG Base Excess POC ABG pCO2 ABG Hemoglobin ABG Oxyhemoglobin ABG Chloride ABG Glucose Oxyhemoglobin Sodium Potassium Chloride Carbon Dioxide BUN Creatinine Glucose POC Glucose 180 H 163 H Lactic Acid Calcium Phosphorus Magnesium AST ALT Lactate Dehydrogenase Total Bilirubin Direct Bilirubin CK-MB (CK-2) C-Reactive Protein NT-Pro-B Natriuret Pep Total Protein Albumin Arterial Blood Glucose Urine WBC (Auto) Urine Creatinine 01/03/20 01/03/20 01/03/20 06:50 07:25 07:45 WBC 12.1 H RBC 3.35 L Hgb 9.0 L Hct 28.9 L MCHC 31 L RDW 16.6 H MCV MCH 27 L Lymph % (Auto) 13.[address] [facility] % (Auto) 8.[address] [facility] # Eos # Lymph # (Auto) [facility] # (Auto) 1.0 H Eos # (Auto) Seg Neutrophils % 75.9 H Seg Neuts % (Manual) Baso # (Auto) Lymphocytes % (Manual) Monocytes % (Manual) Eosinophils % (Manual) Basophils % (Manual) Seg Neutrophils # 9.2 H Seg Neutrophils # Man Lymphocytes # (Manual) Monocytes # (Manual) Eosinophils # (Manual) Nucleated RBC % Basophils # (Manual) PT INR APTT Heparin Anti-Xa Level 0.29 L ABG pH POC ABG pO2 ABG pO2 ABG HCO3 ABG O2 Saturation ABG Base Excess POC ABG pCO2 ABG Hemoglobin ABG Oxyhemoglobin ABG Chloride ABG Glucose Oxyhemoglobin Sodium Potassium 3.3 L D Chloride Carbon Dioxide 35 H D BUN 23 H Creatinine 0.6 L Glucose 149 H POC Glucose Lactic Acid Calcium Phosphorus Magnesium AST ALT 88 H Lactate Dehydrogenase Total Bilirubin Direct Bilirubin CK-MB (CK-2) C-Reactive Protein NT-Pro-B Natriuret Pep Total Protein 6.2 L Albumin 2.9 L Arterial Blood Glucose Urine WBC (Auto) Urine Creatinine 01/03/20 01/03/20 01/03/20 12:05 17:42 18:30 WBC RBC Hgb Hct MCHC RDW MCV MCH Lymph % (Auto) [facility] % (Auto) [facility] # Eos # Lymph # (Auto) [facility] # (Auto) Eos # (Auto) Seg Neutrophils % Seg Neuts % (Manual) Baso # (Auto) Lymphocytes % (Manual) Monocytes % (Manual) Eosinophils % (Manual) Basophils % (Manual) Seg Neutrophils # Seg Neutrophils # Man Lymphocytes # (Manual) Monocytes # (Manual) Eosinophils # (Manual) Nucleated RBC % Basophils # (Manual) PT INR APTT Heparin Anti-Xa Level ABG pH POC ABG pO2 ABG pO2 70.7 L ABG HCO3 36.1 H ABG O2 Saturation 94.4 L ABG Base Excess 10.0 H POC ABG pCO2 ABG Hemoglobin 9.7 L ABG Oxyhemoglobin ABG Chloride ABG Glucose Oxyhemoglobin 91.8 L Sodium Potassium Chloride Carbon Dioxide BUN Creatinine Glucose POC Glucose 128 H 132 H Lactic Acid Calcium Phosphorus Magnesium AST ALT Lactate Dehydrogenase Total Bilirubin Direct Bilirubin CK-MB (CK-2) C-Reactive Protein NT-Pro-B Natriuret Pep Total Protein Albumin Arterial Blood Glucose Urine WBC (Auto) Urine Creatinine 01/04/20 01/04/20 01/04/20 00:10 04:26 05:23 WBC RBC Hgb Hct MCHC RDW MCV MCH Lymph % (Auto) [facility] % (Auto) [facility] # Eos # Lymph # (Auto) [facility] # (Auto) Eos # (Auto) Seg Neutrophils % Seg Neuts % (Manual) Baso # (Auto) Lymphocytes % (Manual) Monocytes % (Manual) Eosinophils % (Manual) Basophils % (Manual) Seg Neutrophils # Seg Neutrophils # Man Lymphocytes # (Manual) Monocytes # (Manual) Eosinophils # (Manual) Nucleated RBC % Basophils # (Manual) PT INR APTT Heparin Anti-Xa Level 0.16 L ABG pH POC ABG pO2 ABG pO2 ABG HCO3 ABG O2 Saturation ABG Base Excess POC ABG pCO2 ABG Hemoglobin ABG Oxyhemoglobin ABG Chloride ABG Glucose Oxyhemoglobin Sodium Potassium Chloride Carbon Dioxide BUN Creatinine Glucose POC Glucose 121 H 119 H Lactic Acid Calcium Phosphorus Magnesium AST ALT Lactate Dehydrogenase Total Bilirubin Direct Bilirubin CK-MB (CK-2) C-Reactive Protein NT-Pro-B Natriuret Pep Total Protein Albumin Arterial Blood Glucose Urine WBC (Auto) Urine Creatinine 01/04/20 01/04/20 01/04/20 09:50 09:50 12:18 WBC 15.4 H RBC 3.30 L Hgb 8.7 L Hct 28.2 L MCHC 31 L RDW 17.0 H MCV MCH 26 L Lymph % (Auto) [facility] % (Auto) 7.[address] [facility] # Eos # Lymph # (Auto) [facility] # (Auto) 1.2 H Eos # (Auto) Seg Neutrophils % 75.4 H Seg Neuts % (Manual) Baso # (Auto) Lymphocytes % (Manual) Monocytes % (Manual) Eosinophils % (Manual) Basophils % (Manual) Seg Neutrophils # 11.6 H Seg Neutrophils # Man Lymphocytes # (Manual) Monocytes # (Manual) Eosinophils # (Manual) Nucleated RBC % Basophils # (Manual) PT INR APTT Heparin Anti-Xa Level ABG pH POC ABG pO2 ABG pO2 ABG HCO3 ABG O2 Saturation ABG Base Excess POC ABG pCO2 ABG Hemoglobin ABG Oxyhemoglobin ABG Chloride ABG Glucose Oxyhemoglobin Sodium 148 H Potassium 3.5 L Chloride Carbon Dioxide 32 H BUN Creatinine 0.6 L Glucose 114 H POC Glucose 111 H Lactic Acid Calcium Phosphorus Magnesium AST ALT 59 H Lactate Dehydrogenase Total Bilirubin Direct Bilirubin CK-MB (CK-2) C-Reactive Protein NT-Pro-B Natriuret Pep Total Protein Albumin 2.6 L Arterial Blood Glucose Urine WBC (Auto) Urine Creatinine 01/05/20 01/05/20 01/05/20 04:05 04:05 05:19 WBC 11.7 H RBC 3.50 L Hgb 9.3 L Hct 29.9 L MCHC 31 L RDW 16.6 H MCV MCH 27 L Lymph % (Auto) 13.[address] [facility] % (Auto) 9.[address] [facility] # Eos # Lymph # (Auto) [facility] # (Auto) 1.1 H Eos # (Auto) Seg Neutrophils % 74.0 H Seg Neuts % (Manual) Baso # (Auto) Lymphocytes % (Manual) Monocytes % (Manual) Eosinophils % (Manual) Basophils % (Manual) Seg Neutrophils # 8.6 H Seg Neutrophils # Man Lymphocytes # (Manual) Monocytes # (Manual) Eosinophils # (Manual) Nucleated RBC % Basophils # (Manual) PT INR APTT Heparin Anti-Xa Level ABG pH POC ABG pO2 ABG pO2 ABG HCO3 ABG O2 Saturation ABG Base Excess POC ABG pCO2 ABG Hemoglobin ABG Oxyhemoglobin ABG Chloride ABG Glucose Oxyhemoglobin Sodium 151 H Potassium Chloride Carbon Dioxide 34 H BUN Creatinine 0.7 L Glucose POC Glucose 112 H Lactic Acid Calcium Phosphorus Magnesium AST ALT 59 H Lactate Dehydrogenase Total Bilirubin Direct Bilirubin CK-MB (CK-2) C-Reactive Protein NT-Pro-B Natriuret Pep Total Protein 5.8 L Albumin 2.6 L Arterial Blood Glucose Urine WBC (Auto) Urine Creatinine 01/05/20 01/06/20 01/06/20 16:04 00:23 04:44 WBC RBC 3.36 L Hgb 8.9 L Hct 28.7 L MCHC 31 L RDW 16.9 H MCV MCH 26 L Lymph % (Auto) [facility] % (Auto) 9.[address] [facility] # Eos # Lymph # (Auto) [facility] # (Auto) Eos # (Auto) Seg Neutrophils % Seg Neuts % (Manual) Baso # (Auto) Lymphocytes % (Manual) Monocytes % (Manual) Eosinophils % (Manual) Basophils % (Manual) Seg Neutrophils # Seg Neutrophils # Man Lymphocytes # (Manual) Monocytes # (Manual) Eosinophils # (Manual) Nucleated RBC % Basophils # (Manual) PT INR APTT Heparin Anti-Xa Level ABG pH POC ABG pO2 ABG pO2 ABG HCO3 ABG O2 Saturation ABG Base Excess POC ABG pCO2 ABG Hemoglobin ABG Oxyhemoglobin ABG Chloride ABG Glucose Oxyhemoglobin Sodium 151 H Potassium 3.2 L Chloride Carbon Dioxide 34 H BUN Creatinine 0.6 L Glucose POC Glucose 107 H Lactic Acid Calcium Phosphorus Magnesium AST ALT Lactate Dehydrogenase Total Bilirubin Direct Bilirubin CK-MB (CK-2) C-Reactive Protein NT-Pro-B Natriuret Pep Total Protein Albumin Arterial Blood Glucose Urine WBC (Auto) Urine Creatinine 01/06/20 01/06/20 01/06/20 04:44 05:33 12:04 WBC RBC Hgb Hct MCHC RDW MCV MCH Lymph % (Auto) [facility] % (Auto) [facility] # Eos # Lymph # (Auto) [facility] # (Auto) Eos # (Auto) Seg Neutrophils % Seg Neuts % (Manual) Baso # (Auto) Lymphocytes % (Manual) Monocytes % (Manual) Eosinophils % (Manual) Basophils % (Manual) Seg Neutrophils # Seg Neutrophils # Man Lymphocytes # (Manual) Monocytes # (Manual) Eosinophils # (Manual) Nucleated RBC % Basophils # (Manual) PT INR APTT Heparin Anti-Xa Level ABG pH POC ABG pO2 ABG pO2 ABG HCO3 ABG O2 Saturation ABG Base Excess POC ABG pCO2 ABG Hemoglobin ABG Oxyhemoglobin ABG Chloride ABG Glucose Oxyhemoglobin Sodium 151 H Potassium 3.4 L Chloride Carbon Dioxide 33 H BUN Creatinine 0.6 L Glucose 118 H POC Glucose 118 H 123 H Lactic Acid Calcium Phosphorus Magnesium AST ALT Lactate Dehydrogenase Total Bilirubin Direct Bilirubin CK-MB (CK-2) C-Reactive Protein NT-Pro-B Natriuret Pep Total Protein 6.2 L Albumin 2.6 L Arterial Blood Glucose Urine WBC (Auto) Urine Creatinine 01/06/20 01/07/20 01/07/20 17:54 00:06 04:10 WBC RBC 3.42 L Hgb 8.9 L Hct 29.0 L MCHC 31 L RDW 17.1 H MCV MCH 26 L Lymph % (Auto) [facility] % (Auto) 8.[address] [facility] # Eos # Lymph # (Auto) [facility] # (Auto) Eos # (Auto) Seg Neutrophils % Seg Neuts % (Manual) Baso # (Auto) Lymphocytes % (Manual) Monocytes % (Manual) Eosinophils % (Manual) Basophils % (Manual) Seg Neutrophils # Seg Neutrophils # Man Lymphocytes # (Manual) Monocytes # (Manual) Eosinophils # (Manual) Nucleated RBC % Basophils # (Manual) PT INR APTT Heparin Anti-Xa Level ABG pH POC ABG pO2 ABG pO2 ABG HCO3 ABG O2 Saturation ABG Base Excess POC ABG pCO2 ABG Hemoglobin ABG Oxyhemoglobin ABG Chloride ABG Glucose Oxyhemoglobin Sodium Potassium Chloride Carbon Dioxide BUN Creatinine Glucose POC Glucose 112 H 126 H Lactic Acid Calcium Phosphorus Magnesium AST ALT Lactate Dehydrogenase Total Bilirubin Direct Bilirubin CK-MB (CK-2) C-Reactive Protein NT-Pro-B Natriuret Pep Total Protein Albumin Arterial Blood Glucose Urine WBC (Auto) Urine Creatinine 01/07/20 01/07/20 01/07/20 04:10 05:59 12:27 WBC RBC Hgb Hct MCHC RDW MCV MCH Lymph % (Auto) [facility] % (Auto) [facility] # Eos # Lymph # (Auto) [facility] # (Auto) Eos # (Auto) Seg Neutrophils % Seg Neuts % (Manual) Baso # (Auto) Lymphocytes % (Manual) Monocytes % (Manual) Eosinophils % (Manual) Basophils % (Manual) Seg Neutrophils # Seg Neutrophils # Man Lymphocytes # (Manual) Monocytes # (Manual) Eosinophils # (Manual) Nucleated RBC % Basophils # (Manual) PT INR APTT Heparin Anti-Xa Level ABG pH POC ABG pO2 ABG pO2 ABG HCO3 ABG O2 Saturation ABG Base Excess POC ABG pCO2 ABG Hemoglobin ABG Oxyhemoglobin ABG Chloride ABG Glucose Oxyhemoglobin Sodium 153 H Potassium 3.5 L Chloride Carbon Dioxide 34 H BUN Creatinine 0.6 L Glucose 121 H POC Glucose 121 H 126 H Lactic Acid Calcium Phosphorus Magnesium AST ALT Lactate Dehydrogenase Total Bilirubin Direct Bilirubin CK-MB (CK-2) C-Reactive Protein NT-Pro-B Natriuret Pep Total Protein 5.9 L Albumin 2.4 L Arterial Blood Glucose Urine WBC (Auto) Urine Creatinine 01/07/20 01/08/20 01/08/20 18:12 00:03 05:41 WBC RBC Hgb Hct MCHC RDW MCV MCH Lymph % (Auto) [facility] % (Auto) [facility] # Eos # Lymph # (Auto) [facility] # (Auto) Eos # (Auto) Seg Neutrophils % Seg Neuts % (Manual) Baso # (Auto) Lymphocytes % (Manual) Monocytes % (Manual) Eosinophils % (Manual) Basophils % (Manual) Seg Neutrophils # Seg Neutrophils # Man Lymphocytes # (Manual) Monocytes # (Manual) Eosinophils # (Manual) Nucleated RBC % Basophils # (Manual) PT INR APTT Heparin Anti-Xa Level ABG pH POC ABG pO2 ABG pO2 ABG HCO3 ABG O2 Saturation ABG Base Excess POC ABG pCO2 ABG Hemoglobin ABG Oxyhemoglobin ABG Chloride ABG Glucose Oxyhemoglobin Sodium Potassium Chloride Carbon Dioxide BUN Creatinine Glucose POC Glucose 124 H 130 H 138 H Lactic Acid Calcium Phosphorus Magnesium AST ALT Lactate Dehydrogenase Total Bilirubin Direct Bilirubin CK-MB (CK-2) C-Reactive Protein NT-Pro-B Natriuret Pep Total Protein Albumin Arterial Blood Glucose Urine WBC (Auto) Urine Creatinine 01/08/20 01/08/20 01/08/20 09:28 11:42 18:21 WBC RBC Hgb Hct MCHC RDW MCV MCH Lymph % (Auto) [facility] % (Auto) [facility] # Eos # Lymph # (Auto) [facility] # (Auto) Eos # (Auto) Seg Neutrophils % Seg Neuts % (Manual) Baso # (Auto) Lymphocytes % (Manual) Monocytes % (Manual) Eosinophils % (Manual) Basophils % (Manual) Seg Neutrophils # Seg Neutrophils # Man Lymphocytes # (Manual) Monocytes # (Manual) Eosinophils # (Manual) Nucleated RBC % Basophils # (Manual) PT INR APTT Heparin Anti-Xa Level ABG pH POC ABG pO2 ABG pO2 ABG HCO3 ABG O2 Saturation ABG Base Excess POC ABG pCO2 ABG Hemoglobin ABG Oxyhemoglobin ABG Chloride ABG Glucose Oxyhemoglobin Sodium Potassium Chloride Carbon Dioxide BUN Creatinine Glucose POC Glucose 181 H 150 H 129 H Lactic Acid Calcium Phosphorus Magnesium AST ALT Lactate Dehydrogenase Total Bilirubin Direct Bilirubin CK-MB (CK-2) C-Reactive Protein NT-Pro-B Natriuret Pep Total Protein Albumin Arterial Blood Glucose Urine WBC (Auto) Urine Creatinine 01/08/20 01/08/20 01/09/20 19:25 23:55 04:11 WBC RBC 3.43 L Hgb 8.9 L Hct 28.7 L MCHC 31 L RDW 17.6 H MCV MCH 26 L Lymph % (Auto) [facility] % (Auto) 8.[address] [facility] # Eos # Lymph # (Auto) [facility] # (Auto) Eos # (Auto) Seg Neutrophils % Seg Neuts % (Manual) Baso # (Auto) Lymphocytes % (Manual) Monocytes % (Manual) Eosinophils % (Manual) Basophils % (Manual) Seg Neutrophils # Seg Neutrophils # Man Lymphocytes # (Manual) Monocytes # (Manual) Eosinophils # (Manual) Nucleated RBC % Basophils # (Manual) PT INR APTT Heparin Anti-Xa Level ABG pH POC ABG pO2 ABG pO2 ABG HCO3 ABG O2 Saturation ABG Base Excess POC ABG pCO2 ABG Hemoglobin ABG Oxyhemoglobin ABG Chloride ABG Glucose Oxyhemoglobin Sodium Potassium Chloride Carbon Dioxide BUN Creatinine 0.7 L Glucose 117 H POC Glucose 132 H Lactic Acid Calcium Phosphorus Magnesium AST ALT Lactate Dehydrogenase Total Bilirubin Direct Bilirubin CK-MB (CK-2) C-Reactive Protein NT-Pro-B Natriuret Pep Total Protein Albumin Arterial Blood Glucose Urine WBC (Auto) Urine Creatinine 01/09/20 01/09/20 01/09/20 04:11 05:38 22:58 WBC RBC Hgb Hct MCHC RDW MCV MCH Lymph % (Auto) [facility] % (Auto) [facility] # Eos # Lymph # (Auto) [facility] # (Auto) Eos # (Auto) Seg Neutrophils % Seg Neuts % (Manual) Baso # (Auto) Lymphocytes % (Manual) Monocytes % (Manual) Eosinophils % (Manual) Basophils % (Manual) Seg Neutrophils # Seg Neutrophils # Man Lymphocytes # (Manual) Monocytes # (Manual) Eosinophils # (Manual) Nucleated RBC % Basophils # (Manual) PT INR APTT Heparin Anti-Xa Level ABG pH POC ABG pO2 ABG pO2 ABG HCO3 ABG O2 Saturation ABG Base Excess POC ABG pCO2 ABG Hemoglobin ABG Oxyhemoglobin ABG Chloride ABG Glucose Oxyhemoglobin Sodium 147 H Potassium 3.3 L D Chloride Carbon Dioxide 32 H BUN Creatinine 0.6 L Glucose 106 H POC Glucose 107 H 113 H Lactic Acid Calcium Phosphorus Magnesium AST ALT Lactate Dehydrogenase Total Bilirubin Direct Bilirubin CK-MB (CK-2) C-Reactive Protein NT-Pro-B Natriuret Pep Total Protein Albumin Arterial Blood Glucose Urine WBC (Auto) Urine Creatinine 01/10/20 01/10/20 01/10/20 04:05 11:36 17:54 WBC RBC Hgb Hct MCHC RDW MCV MCH Lymph % (Auto) [facility] % (Auto) [facility] # Eos # Lymph # (Auto) [facility] # (Auto) Eos # (Auto) Seg Neutrophils % Seg Neuts % (Manual) Baso # (Auto) Lymphocytes % (Manual) Monocytes % (Manual) Eosinophils % (Manual) Basophils % (Manual) Seg Neutrophils # Seg Neutrophils # Man Lymphocytes # (Manual) Monocytes # (Manual) Eosinophils # (Manual) Nucleated RBC % Basophils # (Manual) PT INR APTT Heparin Anti-Xa Level ABG pH POC ABG pO2 ABG pO2 ABG HCO3 ABG O2 Saturation ABG Base Excess POC ABG pCO2 ABG Hemoglobin ABG Oxyhemoglobin ABG Chloride ABG Glucose Oxyhemoglobin Sodium Potassium Chloride Carbon Dioxide BUN Creatinine 0.7 L Glucose 110 H POC Glucose 129 H 117 H Lactic Acid Calcium Phosphorus Magnesium AST ALT Lactate Dehydrogenase Total Bilirubin Direct Bilirubin CK-MB (CK-2) C-Reactive Protein NT-Pro-B Natriuret Pep Total Protein Albumin Arterial Blood Glucose Urine WBC (Auto) Urine Creatinine 01/10/20 01/11/20 01/11/20 23:52 03:19 12:09 WBC RBC Hgb Hct MCHC RDW MCV MCH Lymph % (Auto) [facility] % (Auto) [facility] # Eos # Lymph # (Auto) [facility] # (Auto) Eos # (Auto) Seg Neutrophils % Seg Neuts % (Manual) Baso # (Auto) Lymphocytes % (Manual) Monocytes % (Manual) Eosinophils % (Manual) Basophils % (Manual) Seg Neutrophils # Seg Neutrophils # Man Lymphocytes # (Manual) Monocytes # (Manual) Eosinophils # (Manual) Nucleated RBC % Basophils # (Manual) PT INR APTT Heparin Anti-Xa Level ABG pH POC ABG pO2 ABG pO2 ABG HCO3 ABG O2 Saturation ABG Base Excess POC ABG pCO2 ABG Hemoglobin ABG Oxyhemoglobin ABG Chloride ABG Glucose Oxyhemoglobin Sodium Potassium Chloride Carbon Dioxide BUN Creatinine Glucose POC Glucose 117 H 136 H 115 H Lactic Acid Calcium Phosphorus Magnesium AST ALT Lactate Dehydrogenase Total Bilirubin Direct Bilirubin CK-MB (CK-2) C-Reactive Protein NT-Pro-B Natriuret Pep Total Protein Albumin Arterial Blood Glucose Urine WBC (Auto) Urine Creatinine 01/11/20 01/11/20 01/12/20 18:27 23:28 00:23 WBC RBC Hgb 9.8 L Hct 31.6 L MCHC 31 L RDW 17.8 H MCV 83 L MCH 26 L Lymph % (Auto) [facility] % (Auto) 8.[address] [facility] # Eos # Lymph # (Auto) [facility] # (Auto) Eos # (Auto) Seg Neutrophils % Seg Neuts % (Manual) Baso # (Auto) Lymphocytes % (Manual) Monocytes % (Manual) Eosinophils % (Manual) Basophils % (Manual) Seg Neutrophils # Seg Neutrophils # Man Lymphocytes # (Manual) Monocytes # (Manual) Eosinophils # (Manual) Nucleated RBC % Basophils # (Manual) PT INR APTT Heparin Anti-Xa Level ABG pH POC ABG pO2 ABG pO2 ABG HCO3 ABG O2 Saturation ABG Base Excess POC ABG pCO2 ABG Hemoglobin ABG Oxyhemoglobin ABG Chloride ABG Glucose Oxyhemoglobin Sodium Potassium Chloride Carbon Dioxide BUN Creatinine Glucose POC Glucose 118 H 122 H Lactic Acid Calcium Phosphorus Magnesium AST ALT Lactate Dehydrogenase Total Bilirubin Direct Bilirubin CK-MB (CK-2) C-Reactive Protein NT-Pro-B Natriuret Pep Total Protein Albumin Arterial Blood Glucose Urine WBC (Auto) Urine Creatinine 01/12/20 01/12/20 01/12/20 00:23 04:18 04:18 WBC RBC Hgb 9.6 L Hct 30.9 L MCHC 31 L RDW 17.3 H MCV 81 L MCH 25 L Lymph % (Auto) [facility] % (Auto) [facility] # Eos # Lymph # (Auto) [facility] # (Auto) Eos # (Auto) Seg Neutrophils % Seg Neuts % (Manual) Baso # (Auto) Lymphocytes % (Manual) Monocytes % (Manual) Eosinophils % (Manual) Basophils % (Manual) Seg Neutrophils # Seg Neutrophils # Man Lymphocytes # (Manual) Monocytes # (Manual) Eosinophils # (Manual) Nucleated RBC % Basophils # (Manual) PT INR APTT Heparin Anti-Xa Level ABG pH POC ABG pO2 ABG pO2 ABG HCO3 ABG O2 Saturation ABG Base Excess POC ABG pCO2 ABG Hemoglobin ABG Oxyhemoglobin ABG Chloride ABG Glucose Oxyhemoglobin Sodium Potassium Chloride Carbon Dioxide BUN Creatinine 0.7 L 0.7 L Glucose 111 H 108 H POC Glucose Lactic Acid Calcium Phosphorus Magnesium AST ALT Lactate Dehydrogenase Total Bilirubin Direct Bilirubin CK-MB (CK-2) C-Reactive Protein NT-Pro-B Natriuret Pep Total Protein Albumin 2.6 L Arterial Blood Glucose Urine WBC (Auto) Urine Creatinine 01/12/20 01/12/20 01/12/20 06:03 12:27 13:58 WBC RBC Hgb Hct MCHC RDW MCV MCH Lymph % (Auto) [facility] % (Auto) [facility] # Eos # Lymph # (Auto) [facility] # (Auto) Eos # (Auto) Seg Neutrophils % Seg Neuts % (Manual) Baso # (Auto) Lymphocytes % (Manual) Monocytes % (Manual) Eosinophils % (Manual) Basophils % (Manual) Seg Neutrophils # Seg Neutrophils # Man Lymphocytes # (Manual) Monocytes # (Manual) Eosinophils # (Manual) Nucleated RBC % Basophils # (Manual) PT INR APTT Heparin Anti-Xa Level ABG pH 7.453 H POC ABG pO2 76.6 L ABG pO2 ABG HCO3 ABG O2 Saturation ABG Base Excess POC ABG pCO2 ABG Hemoglobin 10.3 L ABG Oxyhemoglobin ABG Chloride ABG Glucose 99 H Oxyhemoglobin Sodium Potassium Chloride Carbon Dioxide BUN Creatinine Glucose POC Glucose 128 H 121 H Lactic Acid Calcium Phosphorus Magnesium AST ALT Lactate Dehydrogenase Total Bilirubin Direct Bilirubin CK-MB (CK-2) C-Reactive Protein NT-Pro-B Natriuret Pep Total Protein Albumin Arterial Blood Glucose 99 H Urine WBC (Auto) Urine Creatinine 01/12/20 01/13/20 01/13/20 18:24 12:01 17:46 WBC RBC Hgb Hct MCHC RDW MCV MCH Lymph % (Auto) [facility] % (Auto) [facility] # Eos # Lymph # (Auto) [facility] # (Auto) Eos # (Auto) Seg Neutrophils % Seg Neuts % (Manual) Baso # (Auto) Lymphocytes % (Manual) Monocytes % (Manual) Eosinophils % (Manual) Basophils % (Manual) Seg Neutrophils # Seg Neutrophils # Man Lymphocytes # (Manual) Monocytes # (Manual) Eosinophils # (Manual) Nucleated RBC % Basophils # (Manual) PT INR APTT Heparin Anti-Xa Level ABG pH POC ABG pO2 ABG pO2 ABG HCO3 ABG O2 Saturation ABG Base Excess POC ABG pCO2 ABG Hemoglobin ABG Oxyhemoglobin ABG Chloride ABG Glucose Oxyhemoglobin Sodium Potassium Chloride Carbon Dioxide BUN Creatinine Glucose POC Glucose 119 H 107 H 124 H Lactic Acid Calcium Phosphorus Magnesium AST ALT Lactate Dehydrogenase Total Bilirubin Direct Bilirubin CK-MB (CK-2) C-Reactive Protein NT-Pro-B Natriuret Pep Total Protein Albumin Arterial Blood Glucose Urine WBC (Auto) Urine Creatinine 01/13/20 01/14/20 01/14/20 20:40 00:10 05:33 WBC RBC Hgb Hct MCHC RDW MCV MCH Lymph % (Auto) [facility] % (Auto) [facility] # Eos # Lymph # (Auto) [facility] # (Auto) Eos # (Auto) Seg Neutrophils % Seg Neuts % (Manual) Baso # (Auto) Lymphocytes % (Manual) Monocytes % (Manual) Eosinophils % (Manual) Basophils % (Manual) Seg Neutrophils # Seg Neutrophils # Man Lymphocytes # (Manual) Monocytes # (Manual) Eosinophils # (Manual) Nucleated RBC % Basophils # (Manual) PT INR APTT Heparin Anti-Xa Level ABG pH POC ABG pO2 ABG pO2 65.3 L ABG HCO3 31.8 H ABG O2 Saturation 93.5 L ABG Base Excess 6.7 H POC ABG pCO2 ABG Hemoglobin 13.3 L ABG Oxyhemoglobin ABG Chloride ABG Glucose Oxyhemoglobin 90.9 L Sodium Potassium Chloride Carbon Dioxide BUN Creatinine Glucose POC Glucose 111 H 111 H Lactic Acid Calcium Phosphorus Magnesium AST ALT Lactate Dehydrogenase Total Bilirubin Direct Bilirubin CK-MB (CK-2) C-Reactive Protein NT-Pro-B Natriuret Pep Total Protein Albumin Arterial Blood Glucose Urine WBC (Auto) Urine Creatinine 01/14/20 01/14/20 01/14/20 12:10 16:14 16:14 WBC RBC Hgb 10.6 L Hct 34.2 L MCHC 31 L RDW 18.3 H MCV 83 L MCH 26 L Lymph % (Auto) [facility] % (Auto) 7.[address] [facility] # Eos # Lymph # (Auto) [facility] # (Auto) Eos # (Auto) Seg Neutrophils % 71.9 H Seg Neuts % (Manual) Baso # (Auto) Lymphocytes % (Manual) Monocytes % (Manual) Eosinophils % (Manual) Basophils % (Manual) Seg Neutrophils # Seg Neutrophils # Man Lymphocytes # (Manual) Monocytes # (Manual) Eosinophils # (Manual) Nucleated RBC % Basophils # (Manual) PT INR APTT Heparin Anti-Xa Level ABG pH POC ABG pO2 ABG pO2 ABG HCO3 ABG O2 Saturation ABG Base Excess POC ABG pCO2 ABG Hemoglobin ABG Oxyhemoglobin ABG Chloride ABG Glucose Oxyhemoglobin Sodium Potassium Chloride Carbon Dioxide 31 H BUN Creatinine 0.6 L Glucose 131 H POC Glucose 139 H Lactic Acid Calcium Phosphorus Magnesium AST ALT Lactate Dehydrogenase Total Bilirubin Direct Bilirubin CK-MB (CK-2) C-Reactive Protein NT-Pro-B Natriuret Pep Total Protein Albumin Arterial Blood Glucose Urine WBC (Auto) Urine Creatinine 01/14/20 01/15/20 01/15/20 18:05 00:52 05:35 WBC RBC Hgb Hct MCHC RDW MCV MCH Lymph % (Auto) [facility] % (Auto) [facility] # Eos # Lymph # (Auto) [facility] # (Auto) Eos # (Auto) Seg Neutrophils % Seg Neuts % (Manual) Baso # (Auto) Lymphocytes % (Manual) Monocytes % (Manual) Eosinophils % (Manual) Basophils % (Manual) Seg Neutrophils # Seg Neutrophils # Man Lymphocytes # (Manual) Monocytes # (Manual) Eosinophils # (Manual) Nucleated RBC % Basophils # (Manual) PT INR APTT Heparin Anti-Xa Level ABG pH POC ABG pO2 ABG pO2 ABG HCO3 ABG O2 Saturation ABG Base Excess POC ABG pCO2 ABG Hemoglobin ABG Oxyhemoglobin ABG Chloride ABG Glucose Oxyhemoglobin Sodium Potassium Chloride Carbon Dioxide BUN Creatinine Glucose POC Glucose 147 H 140 H 159 H Lactic Acid Calcium Phosphorus Magnesium AST ALT Lactate Dehydrogenase Total Bilirubin Direct Bilirubin CK-MB (CK-2) C-Reactive Protein NT-Pro-B Natriuret Pep Total Protein Albumin Arterial Blood Glucose Urine WBC (Auto) Urine Creatinine 01/15/20 01/15/20 01/16/20 12:52 17:43 00:32 WBC RBC Hgb Hct MCHC RDW MCV MCH Lymph % (Auto) [facility] % (Auto) [facility] # Eos # Lymph # (Auto) [facility] # (Auto) Eos # (Auto) Seg Neutrophils % Seg Neuts % (Manual) Baso # (Auto) Lymphocytes % (Manual) Monocytes % (Manual) Eosinophils % (Manual) Basophils % (Manual) Seg Neutrophils # Seg Neutrophils # Man Lymphocytes # (Manual) Monocytes # (Manual) Eosinophils # (Manual) Nucleated RBC % Basophils # (Manual) PT INR APTT Heparin Anti-Xa Level ABG pH POC ABG pO2 ABG pO2 ABG HCO3 ABG O2 Saturation ABG Base Excess POC ABG pCO2 ABG Hemoglobin ABG Oxyhemoglobin ABG Chloride ABG Glucose Oxyhemoglobin Sodium Potassium Chloride Carbon Dioxide BUN Creatinine Glucose POC Glucose 164 H 167 H 153 H Lactic Acid Calcium Phosphorus Magnesium AST ALT Lactate Dehydrogenase Total Bilirubin Direct Bilirubin CK-MB (CK-2) C-Reactive Protein NT-Pro-B Natriuret Pep Total Protein Albumin Arterial Blood Glucose Urine WBC (Auto) Urine Creatinine 01/16/20 01/16/20 01/17/20 05:46 11:48 06:38 WBC RBC Hgb Hct MCHC RDW MCV MCH Lymph % (Auto) [facility] % (Auto) [facility] # Eos # Lymph # (Auto) [facility] # (Auto) Eos # (Auto) Seg Neutrophils % Seg Neuts % (Manual) Baso # (Auto) Lymphocytes % (Manual) Monocytes % (Manual) Eosinophils % (Manual) Basophils % (Manual) Seg Neutrophils # Seg Neutrophils # Man Lymphocytes # (Manual) Monocytes # (Manual) Eosinophils # (Manual) Nucleated RBC % Basophils # (Manual) PT INR APTT Heparin Anti-Xa Level ABG pH POC ABG pO2 ABG pO2 ABG HCO3 ABG O2 Saturation ABG Base Excess POC ABG pCO2 ABG Hemoglobin ABG Oxyhemoglobin ABG Chloride ABG Glucose Oxyhemoglobin Sodium Potassium Chloride Carbon Dioxide BUN Creatinine Glucose POC Glucose 163 H 155 H 116 H Lactic Acid Calcium Phosphorus Magnesium AST ALT Lactate Dehydrogenase Total Bilirubin Direct Bilirubin CK-MB (CK-2) C-Reactive Protein NT-Pro-B Natriuret Pep Total Protein Albumin Arterial Blood Glucose Urine WBC (Auto) Urine Creatinine 01/17/20 01/17/20 01/18/20 11:36 17:43 00:12 WBC RBC Hgb Hct MCHC RDW MCV MCH Lymph % (Auto) [facility] % (Auto) [facility] # Eos # Lymph # (Auto) [facility] # (Auto) Eos # (Auto) Seg Neutrophils % Seg Neuts % (Manual) Baso # (Auto) Lymphocytes % (Manual) Monocytes % (Manual) Eosinophils % (Manual) Basophils % (Manual) Seg Neutrophils # Seg Neutrophils # Man Lymphocytes # (Manual) Monocytes # (Manual) Eosinophils # (Manual) Nucleated RBC % Basophils # (Manual) PT INR APTT Heparin Anti-Xa Level ABG pH POC ABG pO2 ABG pO2 ABG HCO3 ABG O2 Saturation ABG Base Excess POC ABG pCO2 ABG Hemoglobin ABG Oxyhemoglobin ABG Chloride ABG Glucose Oxyhemoglobin Sodium Potassium Chloride Carbon Dioxide BUN Creatinine Glucose POC Glucose 110 H 134 H 108 H Lactic Acid Calcium Phosphorus Magnesium AST ALT Lactate Dehydrogenase Total Bilirubin Direct Bilirubin CK-MB (CK-2) C-Reactive Protein NT-Pro-B Natriuret Pep Total Protein Albumin Arterial Blood Glucose Urine WBC (Auto) Urine Creatinine 01/18/20 01/18/20 01/18/20 05:37 06:46 06:46 WBC RBC Hgb 10.1 L Hct 32.2 L MCHC 31 L RDW 18.1 H MCV 81 L MCH 25 L Lymph % (Auto) [facility] % (Auto) [facility] # Eos # Lymph # (Auto) [facility] # (Auto) Eos # (Auto) Seg Neutrophils % 71.9 H Seg Neuts % (Manual) Baso # (Auto) Lymphocytes % (Manual) Monocytes % (Manual) Eosinophils % (Manual) Basophils % (Manual) Seg Neutrophils # Seg Neutrophils # Man Lymphocytes # (Manual) Monocytes # (Manual) Eosinophils # (Manual) Nucleated RBC % Basophils # (Manual) PT INR APTT Heparin Anti-Xa Level ABG pH POC ABG pO2 ABG pO2 ABG HCO3 ABG O2 Saturation ABG Base Excess POC ABG pCO2 ABG Hemoglobin ABG Oxyhemoglobin ABG Chloride ABG Glucose Oxyhemoglobin Sodium Potassium Chloride Carbon Dioxide BUN Creatinine 0.7 L Glucose 155 H POC Glucose 168 H Lactic Acid Calcium Phosphorus Magnesium AST ALT Lactate Dehydrogenase Total Bilirubin Direct Bilirubin CK-MB (CK-2) C-Reactive Protein NT-Pro-B Natriuret Pep Total Protein Albumin Arterial Blood Glucose Urine WBC (Auto) Urine Creatinine 01/18/20 01/18/20 01/18/20 12:05 17:14 23:28 WBC RBC Hgb Hct MCHC RDW MCV MCH Lymph % (Auto) [facility] % (Auto) [facility] # Eos # Lymph # (Auto) [facility] # (Auto) Eos # (Auto) Seg Neutrophils % Seg Neuts % (Manual) Baso # (Auto) Lymphocytes % (Manual) Monocytes % (Manual) Eosinophils % (Manual) Basophils % (Manual) Seg Neutrophils # Seg Neutrophils # Man Lymphocytes # (Manual) Monocytes # (Manual) Eosinophils # (Manual) Nucleated RBC % Basophils # (Manual) PT INR APTT Heparin Anti-Xa Level ABG pH POC ABG pO2 ABG pO2 ABG HCO3 ABG O2 Saturation ABG Base Excess POC ABG pCO2 ABG Hemoglobin ABG Oxyhemoglobin ABG Chloride ABG Glucose Oxyhemoglobin Sodium Potassium Chloride Carbon Dioxide BUN Creatinine Glucose POC Glucose 128 H 126 H 128 H Lactic Acid Calcium Phosphorus Magnesium AST ALT Lactate Dehydrogenase Total Bilirubin Direct Bilirubin CK-MB (CK-2) C-Reactive Protein NT-Pro-B Natriuret Pep Total Protein Albumin Arterial Blood Glucose Urine WBC (Auto) Urine Creatinine 01/19/20 01/19/20 01/19/20 05:39 12:33 17:36 WBC RBC Hgb Hct MCHC RDW MCV MCH Lymph % (Auto) [facility] % (Auto) [facility] # Eos # Lymph # (Auto) [facility] # (Auto) Eos # (Auto) Seg Neutrophils % Seg Neuts % (Manual) Baso # (Auto) Lymphocytes % (Manual) Monocytes % (Manual) Eosinophils % (Manual) Basophils % (Manual) Seg Neutrophils # Seg Neutrophils # Man Lymphocytes # (Manual) Monocytes # (Manual) Eosinophils # (Manual) Nucleated RBC % Basophils # (Manual) PT INR APTT Heparin Anti-Xa Level ABG pH POC ABG pO2 ABG pO2 ABG HCO3 ABG O2 Saturation ABG Base Excess POC ABG pCO2 ABG Hemoglobin ABG Oxyhemoglobin ABG Chloride ABG Glucose Oxyhemoglobin Sodium Potassium Chloride Carbon Dioxide BUN Creatinine Glucose POC Glucose 164 H 171 H 152 H Lactic Acid Calcium Phosphorus Magnesium AST ALT Lactate Dehydrogenase Total Bilirubin Direct Bilirubin CK-MB (CK-2) C-Reactive Protein NT-Pro-B Natriuret Pep Total Protein Albumin Arterial Blood Glucose Urine WBC (Auto) Urine Creatinine 01/20/20 01/20/20 01/20/20 00:12 05:20 05:35 WBC RBC Hgb 9.2 L Hct 29.4 L MCHC 31 L RDW 17.9 H MCV 81 L MCH 25 L Lymph % (Auto) [facility] % (Auto) [facility] # Eos # Lymph # (Auto) [facility] # (Auto) Eos # (Auto) Seg Neutrophils % Seg Neuts % (Manual) Baso # (Auto) Lymphocytes % (Manual) Monocytes % (Manual) Eosinophils % (Manual) Basophils % (Manual) Seg Neutrophils # Seg Neutrophils # Man Lymphocytes # (Manual) Monocytes # (Manual) Eosinophils # (Manual) Nucleated RBC % Basophils # (Manual) PT INR APTT Heparin Anti-Xa Level ABG pH POC ABG pO2 ABG pO2 ABG HCO3 ABG O2 Saturation ABG Base Excess POC ABG pCO2 ABG Hemoglobin ABG Oxyhemoglobin ABG Chloride ABG Glucose Oxyhemoglobin Sodium Potassium Chloride Carbon Dioxide BUN Creatinine Glucose POC Glucose 120 H 136 H Lactic Acid Calcium Phosphorus Magnesium AST ALT Lactate Dehydrogenase Total Bilirubin Direct Bilirubin CK-MB (CK-2) C-Reactive Protein NT-Pro-B Natriuret Pep Total Protein Albumin Arterial Blood Glucose Urine WBC (Auto) Urine Creatinine 01/20/20 01/20/20 01/20/20 05:40 11:58 14:55 WBC RBC Hgb 9.0 L Hct 28.3 L MCHC RDW MCV MCH Lymph % (Auto) [facility] % (Auto) [facility] # Eos # Lymph # (Auto) [facility] # (Auto) Eos # (Auto) Seg Neutrophils % Seg Neuts % (Manual) Baso # (Auto) Lymphocytes % (Manual) Monocytes % (Manual) Eosinophils % (Manual) Basophils % (Manual) Seg Neutrophils # Seg Neutrophils # Man Lymphocytes # (Manual) Monocytes # (Manual) Eosinophils # (Manual) Nucleated RBC % Basophils # (Manual) PT INR APTT Heparin Anti-Xa Level ABG pH POC ABG pO2 ABG pO2 ABG HCO3 ABG O2 Saturation ABG Base Excess POC ABG pCO2 ABG Hemoglobin ABG Oxyhemoglobin ABG Chloride ABG Glucose Oxyhemoglobin Sodium Potassium Chloride Carbon Dioxide 32 H BUN 22 H Creatinine 0.7 L Glucose 128 H POC Glucose 152 H Lactic Acid Calcium Phosphorus Magnesium AST ALT Lactate Dehydrogenase Total Bilirubin Direct Bilirubin CK-MB (CK-2) C-Reactive Protein NT-Pro-B Natriuret Pep Total Protein Albumin Arterial Blood Glucose Urine WBC (Auto) Urine Creatinine 01/20/20 01/20/20 01/20/20 14:55 18:14 21:35 WBC RBC Hgb Hct MCHC RDW MCV MCH Lymph % (Auto) [facility] % (Auto) [facility] # Eos # Lymph # (Auto) [facility] # (Auto) Eos # (Auto) Seg Neutrophils % Seg Neuts % (Manual) Baso # (Auto) Lymphocytes % (Manual) Monocytes % (Manual) Eosinophils % (Manual) Basophils % (Manual) Seg Neutrophils # Seg Neutrophils # Man Lymphocytes # (Manual) Monocytes # (Manual) Eosinophils # (Manual) Nucleated RBC % Basophils # (Manual) PT 20.4 H INR 1.72 H APTT 40.6 H Heparin Anti-Xa Level > 2.00 H ABG pH POC ABG pO2 ABG pO2 ABG HCO3 ABG O2 Saturation ABG Base Excess POC ABG pCO2 ABG Hemoglobin ABG Oxyhemoglobin ABG Chloride ABG Glucose Oxyhemoglobin Sodium Potassium Chloride Carbon Dioxide BUN Creatinine Glucose POC Glucose 150 H Lactic Acid Calcium Phosphorus Magnesium AST ALT Lactate Dehydrogenase Total Bilirubin Direct Bilirubin CK-MB (CK-2) C-Reactive Protein NT-Pro-B Natriuret Pep Total Protein Albumin Arterial Blood Glucose Urine WBC (Auto) Urine Creatinine 01/21/20 01/21/20 01/21/20 00:30 05:47 05:59 WBC RBC Hgb Hct MCHC RDW MCV MCH Lymph % (Auto) [facility] % (Auto) [facility] # Eos # Lymph # (Auto) [facility] # (Auto) Eos # (Auto) Seg Neutrophils % Seg Neuts % (Manual) Baso # (Auto) Lymphocytes % (Manual) Monocytes % (Manual) Eosinophils % (Manual) Basophils % (Manual) Seg Neutrophils # Seg Neutrophils # Man Lymphocytes # (Manual) Monocytes # (Manual) Eosinophils # (Manual) Nucleated RBC % Basophils # (Manual) PT INR APTT Heparin Anti-Xa Level 1.93 H ABG pH POC ABG pO2 ABG pO2 ABG HCO3 ABG O2 Saturation ABG Base Excess POC ABG pCO2 ABG Hemoglobin ABG Oxyhemoglobin ABG Chloride ABG Glucose Oxyhemoglobin Sodium Potassium Chloride Carbon Dioxide BUN Creatinine Glucose POC Glucose 126 H 148 H Lactic Acid Calcium Phosphorus Magnesium AST ALT Lactate Dehydrogenase Total Bilirubin Direct Bilirubin CK-MB (CK-2) C-Reactive Protein NT-Pro-B Natriuret Pep Total Protein Albumin Arterial Blood Glucose Urine WBC (Auto) Urine Creatinine 01/21/20 01/21/20 01/21/20 12:32 18:20 23:54 WBC RBC Hgb Hct MCHC RDW MCV MCH Lymph % (Auto) [facility] % (Auto) [facility] # Eos # Lymph # (Auto) [facility] # (Auto) Eos # (Auto) Seg Neutrophils % Seg Neuts % (Manual) Baso # (Auto) Lymphocytes % (Manual) Monocytes % (Manual) Eosinophils % (Manual) Basophils % (Manual) Seg Neutrophils # Seg Neutrophils # Man Lymphocytes # (Manual) Monocytes # (Manual) Eosinophils # (Manual) Nucleated RBC % Basophils # (Manual) PT INR APTT Heparin Anti-Xa Level 1.28 H ABG pH POC ABG pO2 ABG pO2 ABG HCO3 ABG O2 Saturation ABG Base Excess POC ABG pCO2 ABG Hemoglobin ABG Oxyhemoglobin ABG Chloride ABG Glucose Oxyhemoglobin Sodium Potassium Chloride Carbon Dioxide BUN Creatinine Glucose POC Glucose 112 H 146 H Lactic Acid Calcium Phosphorus Magnesium AST ALT Lactate Dehydrogenase Total Bilirubin Direct Bilirubin CK-MB (CK-2) C-Reactive Protein NT-Pro-B Natriuret Pep Total Protein Albumin Arterial Blood Glucose Urine WBC (Auto) Urine Creatinine 01/22/20 01/22/20 01/22/20 04:45 04:45 05:48 WBC RBC Hgb 9.3 L Hct 29.0 L MCHC RDW MCV MCH Lymph % (Auto) [facility] % (Auto) [facility] # Eos # Lymph # (Auto) [facility] # (Auto) Eos # (Auto) Seg Neutrophils % Seg Neuts % (Manual) Baso # (Auto) Lymphocytes % (Manual) Monocytes % (Manual) Eosinophils % (Manual) Basophils % (Manual) Seg Neutrophils # Seg Neutrophils # Man Lymphocytes # (Manual) Monocytes # (Manual) Eosinophils # (Manual) Nucleated RBC % Basophils # (Manual) PT INR APTT Heparin Anti-Xa Level 1.34 H ABG pH POC ABG pO2 ABG pO2 ABG HCO3 ABG O2 Saturation ABG Base Excess POC ABG pCO2 ABG Hemoglobin ABG Oxyhemoglobin ABG Chloride ABG Glucose Oxyhemoglobin Sodium Potassium Chloride Carbon Dioxide BUN Creatinine Glucose POC Glucose 142 H Lactic Acid Calcium Phosphorus Magnesium AST ALT Lactate Dehydrogenase Total Bilirubin Direct Bilirubin CK-MB (CK-2) C-Reactive Protein NT-Pro-B Natriuret Pep Total Protein Albumin Arterial Blood Glucose Urine WBC (Auto) Urine Creatinine 01/22/20 01/22/20 01/22/20 08:09 08:22 09:58 WBC RBC Hgb Hct MCHC RDW MCV MCH Lymph % (Auto) [facility] % (Auto) [facility] # Eos # Lymph # (Auto) [facility] # (Auto) Eos # (Auto) Seg Neutrophils % Seg Neuts % (Manual) Baso # (Auto) Lymphocytes % (Manual) Monocytes % (Manual) Eosinophils % (Manual) Basophils % (Manual) Seg Neutrophils # Seg Neutrophils # Man Lymphocytes # (Manual) Monocytes # (Manual) Eosinophils # (Manual) Nucleated RBC % Basophils # (Manual) PT 16.9 H INR 1.34 H APTT Heparin Anti-Xa Level ABG pH POC ABG pO2 ABG pO2 ABG HCO3 ABG O2 Saturation ABG Base Excess POC ABG pCO2 ABG Hemoglobin ABG Oxyhemoglobin ABG Chloride ABG Glucose Oxyhemoglobin Sodium Potassium Chloride 97.8 L Carbon Dioxide BUN 29 H Creatinine Glucose 128 H POC Glucose 131 H Lactic Acid Calcium Phosphorus Magnesium AST ALT Lactate Dehydrogenase Total Bilirubin Direct Bilirubin CK-MB (CK-2) C-Reactive Protein NT-Pro-B Natriuret Pep Total Protein Albumin Arterial Blood Glucose Urine WBC (Auto) Urine Creatinine 01/22/20 01/22/20 01/22/20 12:44 16:13 18:18 WBC RBC Hgb Hct MCHC RDW MCV MCH Lymph % (Auto) [facility] % (Auto) [facility] # Eos # Lymph # (Auto) [facility] # (Auto) Eos # (Auto) Seg Neutrophils % Seg Neuts % (Manual) Baso # (Auto) Lymphocytes % (Manual) Monocytes % (Manual) Eosinophils % (Manual) Basophils % (Manual) Seg Neutrophils # Seg Neutrophils # Man Lymphocytes # (Manual) Monocytes # (Manual) Eosinophils # (Manual) Nucleated RBC % Basophils # (Manual) PT INR APTT Heparin Anti-Xa Level ABG pH POC ABG pO2 ABG pO2 ABG HCO3 ABG O2 Saturation ABG Base Excess POC ABG pCO2 ABG Hemoglobin ABG Oxyhemoglobin ABG Chloride ABG Glucose Oxyhemoglobin Sodium Potassium Chloride Carbon Dioxide BUN Creatinine Glucose POC Glucose 156 H 133 H 155 H Lactic Acid Calcium Phosphorus Magnesium AST ALT Lactate Dehydrogenase Total Bilirubin Direct Bilirubin CK-MB (CK-2) C-Reactive Protein NT-Pro-B Natriuret Pep Total Protein Albumin Arterial Blood Glucose Urine WBC (Auto) Urine Creatinine 01/22/20 01/23/20 01/23/20 23:22 05:37 12:59 WBC RBC Hgb Hct MCHC RDW MCV MCH Lymph % (Auto) [facility] % (Auto) [facility] # Eos # Lymph # (Auto) [facility] # (Auto) Eos # (Auto) Seg Neutrophils % Seg Neuts % (Manual) Baso # (Auto) Lymphocytes % (Manual) Monocytes % (Manual) Eosinophils % (Manual) Basophils % (Manual) Seg Neutrophils # Seg Neutrophils # Man Lymphocytes # (Manual) Monocytes # (Manual) Eosinophils # (Manual) Nucleated RBC % Basophils # (Manual) PT INR APTT Heparin Anti-Xa Level ABG pH POC ABG pO2 ABG pO2 ABG HCO3 ABG O2 Saturation ABG Base Excess POC ABG pCO2 ABG Hemoglobin ABG Oxyhemoglobin ABG Chloride ABG Glucose Oxyhemoglobin Sodium Potassium Chloride Carbon Dioxide BUN Creatinine Glucose POC Glucose 148 H 163 H 175 H Lactic Acid Calcium Phosphorus Magnesium AST ALT Lactate Dehydrogenase Total Bilirubin Direct Bilirubin CK-MB (CK-2) C-Reactive Protein NT-Pro-B Natriuret Pep Total Protein Albumin Arterial Blood Glucose Urine WBC (Auto) Urine Creatinine 01/23/20 01/23/20 01/24/20 17:28 23:56 04:30 WBC RBC 3.46 L Hgb 8.8 L Hct 27.8 L MCHC RDW 18.2 H MCV 81 L MCH 25 L Lymph % (Auto) [facility] % (Auto) 7.[address] [facility] # Eos # Lymph # (Auto) [facility] # (Auto) Eos # (Auto) Seg Neutrophils % Seg Neuts % (Manual) Baso # (Auto) Lymphocytes % (Manual) Monocytes % (Manual) Eosinophils % (Manual) Basophils % (Manual) Seg Neutrophils # Seg Neutrophils # Man Lymphocytes # (Manual) Monocytes # (Manual) Eosinophils # (Manual) Nucleated RBC % Basophils # (Manual) PT INR APTT Heparin Anti-Xa Level ABG pH POC ABG pO2 ABG pO2 ABG HCO3 ABG O2 Saturation ABG Base Excess POC ABG pCO2 ABG Hemoglobin ABG Oxyhemoglobin ABG Chloride ABG Glucose Oxyhemoglobin Sodium Potassium Chloride Carbon Dioxide BUN Creatinine Glucose POC Glucose 165 H 177 H Lactic Acid Calcium Phosphorus Magnesium AST ALT Lactate Dehydrogenase Total Bilirubin Direct Bilirubin CK-MB (CK-2) C-Reactive Protein NT-Pro-B Natriuret Pep Total Protein Albumin Arterial Blood Glucose Urine WBC (Auto) Urine Creatinine 01/24/20 01/24/20 01/24/20 04:30 07:18 12:06 WBC RBC Hgb Hct MCHC RDW MCV MCH Lymph % (Auto) [facility] % (Auto) [facility] # Eos # Lymph # (Auto) [facility] # (Auto) Eos # (Auto) Seg Neutrophils % Seg Neuts % (Manual) Baso # (Auto) Lymphocytes % (Manual) Monocytes % (Manual) Eosinophils % (Manual) Basophils % (Manual) Seg Neutrophils # Seg Neutrophils # Man Lymphocytes # (Manual) Monocytes # (Manual) Eosinophils # (Manual) Nucleated RBC % Basophils # (Manual) PT INR APTT Heparin Anti-Xa Level ABG pH POC ABG pO2 ABG pO2 ABG HCO3 ABG O2 Saturation ABG Base Excess POC ABG pCO2 ABG Hemoglobin ABG Oxyhemoglobin ABG Chloride ABG Glucose Oxyhemoglobin Sodium Potassium Chloride 97.9 L Carbon Dioxide BUN 31 H Creatinine Glucose 146 H POC Glucose 151 H 133 H Lactic Acid Calcium Phosphorus Magnesium AST ALT Lactate Dehydrogenase Total Bilirubin Direct Bilirubin CK-MB (CK-2) C-Reactive Protein NT-Pro-B Natriuret Pep Total Protein Albumin Arterial Blood Glucose Urine WBC (Auto) Urine Creatinine 01/24/20 01/25/20 01/25/20 17:36 00:08 04:25 WBC RBC 3.50 L Hgb 8.7 L Hct 27.9 L MCHC 31 L RDW 18.2 H MCV 80 L MCH 25 L Lymph % (Auto) [facility] % (Auto) 8.[address] [facility] # Eos # Lymph # (Auto) [facility] # (Auto) Eos # (Auto) Seg Neutrophils % Seg Neuts % (Manual) Baso # (Auto) Lymphocytes % (Manual) Monocytes % (Manual) Eosinophils % (Manual) Basophils % (Manual) Seg Neutrophils # Seg Neutrophils # Man Lymphocytes # (Manual) Monocytes # (Manual) Eosinophils # (Manual) Nucleated RBC % Basophils # (Manual) PT INR APTT Heparin Anti-Xa Level ABG pH POC ABG pO2 ABG pO2 ABG HCO3 ABG O2 Saturation ABG Base Excess POC ABG pCO2 ABG Hemoglobin ABG Oxyhemoglobin ABG Chloride ABG Glucose Oxyhemoglobin Sodium Potassium Chloride Carbon Dioxide BUN Creatinine Glucose POC Glucose 133 H 129 H Lactic Acid Calcium Phosphorus Magnesium AST ALT Lactate Dehydrogenase Total Bilirubin Direct Bilirubin CK-MB (CK-2) C-Reactive Protein NT-Pro-B Natriuret Pep Total Protein Albumin Arterial Blood Glucose Urine WBC (Auto) Urine Creatinine 01/25/20 01/25/20 01/25/20 04:25 05:38 11:52 WBC RBC Hgb Hct MCHC RDW MCV MCH Lymph % (Auto) [facility] % (Auto) [facility] # Eos # Lymph # (Auto) [facility] # (Auto) Eos # (Auto) Seg Neutrophils % Seg Neuts % (Manual) Baso # (Auto) Lymphocytes % (Manual) Monocytes % (Manual) Eosinophils % (Manual) Basophils % (Manual) Seg Neutrophils # Seg Neutrophils # Man Lymphocytes # (Manual) Monocytes # (Manual) Eosinophils # (Manual) Nucleated RBC % Basophils # (Manual) PT INR APTT Heparin Anti-Xa Level ABG pH POC ABG pO2 ABG pO2 ABG HCO3 ABG O2 Saturation ABG Base Excess POC ABG pCO2 ABG Hemoglobin ABG Oxyhemoglobin ABG Chloride ABG Glucose Oxyhemoglobin Sodium Potassium Chloride Carbon Dioxide BUN 30 H Creatinine Glucose 134 H POC Glucose 129 H 134 H Lactic Acid Calcium Phosphorus Magnesium AST ALT Lactate Dehydrogenase Total Bilirubin Direct Bilirubin CK-MB (CK-2) C-Reactive Protein NT-Pro-B Natriuret Pep Total Protein Albumin Arterial Blood Glucose Urine WBC (Auto) Urine Creatinine 01/25/20 01/25/20 01/26/20 17:13 21:02 00:59 WBC RBC Hgb Hct MCHC RDW MCV MCH Lymph % (Auto) [facility] % (Auto) [facility] # Eos # Lymph # (Auto) [facility] # (Auto) Eos # (Auto) Seg Neutrophils % Seg Neuts % (Manual) Baso # (Auto) Lymphocytes % (Manual) Monocytes % (Manual) Eosinophils % (Manual) Basophils % (Manual) Seg Neutrophils # Seg Neutrophils # Man Lymphocytes # (Manual) Monocytes # (Manual) Eosinophils # (Manual) Nucleated RBC % Basophils # (Manual) PT INR APTT Heparin Anti-Xa Level ABG pH POC ABG pO2 ABG pO2 57.5 L ABG HCO3 31.7 H ABG O2 Saturation 90.3 L ABG Base Excess 6.6 H POC ABG pCO2 ABG Hemoglobin 13.0 L ABG Oxyhemoglobin ABG Chloride ABG Glucose Oxyhemoglobin 87.5 L Sodium Potassium Chloride Carbon Dioxide BUN Creatinine Glucose POC Glucose 124 H 196 H Lactic Acid Calcium Phosphorus Magnesium AST ALT Lactate Dehydrogenase Total Bilirubin Direct Bilirubin CK-MB (CK-2) C-Reactive Protein NT-Pro-B Natriuret Pep Total Protein Albumin Arterial Blood Glucose Urine WBC (Auto) Urine Creatinine 01/26/20 01/26/20 01/26/20 03:20 05:46 12:46 WBC RBC Hgb 9.2 L Hct 29.4 L MCHC RDW MCV MCH Lymph % (Auto) [facility] % (Auto) [facility] # Eos # Lymph # (Auto) [facility] # (Auto) Eos # (Auto) Seg Neutrophils % Seg Neuts % (Manual) Baso # (Auto) Lymphocytes % (Manual) Monocytes % (Manual) Eosinophils % (Manual) Basophils % (Manual) Seg Neutrophils # Seg Neutrophils # Man Lymphocytes # (Manual) Monocytes # (Manual) Eosinophils # (Manual) Nucleated RBC % Basophils # (Manual) PT INR APTT Heparin Anti-Xa Level ABG pH POC ABG pO2 ABG pO2 ABG HCO3 ABG O2 Saturation ABG Base Excess POC ABG pCO2 ABG Hemoglobin ABG Oxyhemoglobin ABG Chloride ABG Glucose Oxyhemoglobin Sodium Potassium Chloride Carbon Dioxide BUN Creatinine Glucose POC Glucose 141 H 122 H Lactic Acid Calcium Phosphorus Magnesium AST ALT Lactate Dehydrogenase Total Bilirubin Direct Bilirubin CK-MB (CK-2) C-Reactive Protein NT-Pro-B Natriuret Pep Total Protein Albumin Arterial Blood Glucose Urine WBC (Auto) Urine Creatinine 01/26/20 01/26/20 01/27/20 18:03 23:55 04:47 WBC RBC Hgb Hct MCHC RDW MCV MCH Lymph % (Auto) [facility] % (Auto) [facility] # Eos # Lymph # (Auto) [facility] # (Auto) Eos # (Auto) Seg Neutrophils % Seg Neuts % (Manual) Baso # (Auto) Lymphocytes % (Manual) Monocytes % (Manual) Eosinophils % (Manual) Basophils % (Manual) Seg Neutrophils # Seg Neutrophils # Man Lymphocytes # (Manual) Monocytes # (Manual) Eosinophils # (Manual) Nucleated RBC % Basophils # (Manual) PT INR APTT Heparin Anti-Xa Level ABG pH POC ABG pO2 ABG pO2 ABG HCO3 ABG O2 Saturation ABG Base Excess POC ABG pCO2 ABG Hemoglobin ABG Oxyhemoglobin ABG Chloride ABG Glucose Oxyhemoglobin Sodium Potassium Chloride Carbon Dioxide BUN 30 H Creatinine 0.7 L Glucose 135 H POC Glucose 142 H 159 H Lactic Acid Calcium Phosphorus Magnesium AST ALT Lactate Dehydrogenase Total Bilirubin Direct Bilirubin CK-MB (CK-2) C-Reactive Protein NT-Pro-B Natriuret Pep Total Protein Albumin Arterial Blood Glucose Urine WBC (Auto) Urine Creatinine 01/27/20 01/27/20 01/27/20 05:43 12:06 17:16 WBC RBC Hgb Hct MCHC RDW MCV MCH Lymph % (Auto) [facility] % (Auto) [facility] # Eos # Lymph # (Auto) [facility] # (Auto) Eos # (Auto) Seg Neutrophils % Seg Neuts % (Manual) Baso # (Auto) Lymphocytes % (Manual) Monocytes % (Manual) Eosinophils % (Manual) Basophils % (Manual) Seg Neutrophils # Seg Neutrophils # Man Lymphocytes # (Manual) Monocytes # (Manual) Eosinophils # (Manual) Nucleated RBC % Basophils # (Manual) PT INR APTT Heparin Anti-Xa Level ABG pH POC ABG pO2 ABG pO2 ABG HCO3 ABG O2 Saturation ABG Base Excess POC ABG pCO2 ABG Hemoglobin ABG Oxyhemoglobin ABG Chloride ABG Glucose Oxyhemoglobin Sodium Potassium Chloride Carbon Dioxide BUN Creatinine Glucose POC Glucose 143 H 142 H 128 H Lactic Acid Calcium Phosphorus Magnesium AST ALT Lactate Dehydrogenase Total Bilirubin Direct Bilirubin CK-MB (CK-2) C-Reactive Protein NT-Pro-B Natriuret Pep Total Protein Albumin Arterial Blood Glucose Urine WBC (Auto) Urine Creatinine 01/27/20 01/28/20 01/28/20 23:55 04:37 05:55 WBC RBC Hgb 9.4 L Hct 29.9 L MCHC RDW MCV MCH Lymph % (Auto) [facility] % (Auto) [facility] # Eos # Lymph # (Auto) [facility] # (Auto) Eos # (Auto) Seg Neutrophils % Seg Neuts % (Manual) Baso # (Auto) Lymphocytes % (Manual) Monocytes % (Manual) Eosinophils % (Manual) Basophils % (Manual) Seg Neutrophils # Seg Neutrophils # Man Lymphocytes # (Manual) Monocytes # (Manual) Eosinophils # (Manual) Nucleated RBC % Basophils # (Manual) PT INR APTT Heparin Anti-Xa Level ABG pH POC ABG pO2 ABG pO2 ABG HCO3 ABG O2 Saturation ABG Base Excess POC ABG pCO2 ABG Hemoglobin ABG Oxyhemoglobin ABG Chloride ABG Glucose Oxyhemoglobin Sodium Potassium Chloride Carbon Dioxide BUN Creatinine Glucose POC Glucose 166 H 169 H Lactic Acid Calcium Phosphorus Magnesium AST ALT Lactate Dehydrogenase Total Bilirubin Direct Bilirubin CK-MB (CK-2) C-Reactive Protein NT-Pro-B Natriuret Pep Total Protein Albumin Arterial Blood Glucose Urine WBC (Auto) Urine Creatinine 01/28/20 01/28/20 01/28/20 11:58 17:26 23:46 WBC RBC Hgb Hct MCHC RDW MCV MCH Lymph % (Auto) [facility] % (Auto) [facility] # Eos # Lymph # (Auto) [facility] # (Auto) Eos # (Auto) Seg Neutrophils % Seg Neuts % (Manual) Baso # (Auto) Lymphocytes % (Manual) Monocytes % (Manual) Eosinophils % (Manual) Basophils % (Manual) Seg Neutrophils # Seg Neutrophils # Man Lymphocytes # (Manual) Monocytes # (Manual) Eosinophils # (Manual) Nucleated RBC % Basophils # (Manual) PT INR APTT Heparin Anti-Xa Level ABG pH POC ABG pO2 ABG pO2 ABG HCO3 ABG O2 Saturation ABG Base Excess POC ABG pCO2 ABG Hemoglobin ABG Oxyhemoglobin ABG Chloride ABG Glucose Oxyhemoglobin Sodium Potassium Chloride Carbon Dioxide BUN Creatinine Glucose POC Glucose 130 H 126 H 150 H Lactic Acid Calcium Phosphorus Magnesium AST ALT Lactate Dehydrogenase Total Bilirubin Direct Bilirubin CK-MB (CK-2) C-Reactive Protein NT-Pro-B Natriuret Pep Total Protein Albumin Arterial Blood Glucose Urine WBC (Auto) Urine Creatinine 01/29/20 01/29/20 01/29/20 04:55 06:00 12:28 WBC RBC Hgb Hct MCHC RDW MCV MCH Lymph % (Auto) [facility] % (Auto) [facility] # Eos # Lymph # (Auto) [facility] # (Auto) Eos # (Auto) Seg Neutrophils % Seg Neuts % (Manual) Baso # (Auto) Lymphocytes % (Manual) Monocytes % (Manual) Eosinophils % (Manual) Basophils % (Manual) Seg Neutrophils # Seg Neutrophils # Man Lymphocytes # (Manual) Monocytes # (Manual) Eosinophils # (Manual) Nucleated RBC % Basophils # (Manual) PT INR APTT Heparin Anti-Xa Level ABG pH POC ABG pO2 ABG pO2 ABG HCO3 ABG O2 Saturation ABG Base Excess POC ABG pCO2 ABG Hemoglobin ABG Oxyhemoglobin ABG Chloride ABG Glucose Oxyhemoglobin Sodium Potassium Chloride Carbon Dioxide 34 H BUN Creatinine 0.6 L Glucose 152 H POC Glucose 157 H 156 H Lactic Acid Calcium Phosphorus Magnesium AST ALT Lactate Dehydrogenase Total Bilirubin Direct Bilirubin CK-MB (CK-2) C-Reactive Protein NT-Pro-B Natriuret Pep Total Protein Albumin Arterial Blood Glucose Urine WBC (Auto) Urine Creatinine 01/29/20 01/30/20 01/30/20 19:06 00:29 05:39 WBC RBC Hgb Hct MCHC RDW MCV MCH Lymph % (Auto) [facility] % (Auto) [facility] # Eos # Lymph # (Auto) [facility] # (Auto) Eos # (Auto) Seg Neutrophils % Seg Neuts % (Manual) Baso # (Auto) Lymphocytes % (Manual) Monocytes % (Manual) Eosinophils % (Manual) Basophils % (Manual) Seg Neutrophils # Seg Neutrophils # Man Lymphocytes # (Manual) Monocytes # (Manual) Eosinophils # (Manual) Nucleated RBC % Basophils # (Manual) PT INR APTT Heparin Anti-Xa Level ABG pH POC ABG pO2 ABG pO2 ABG HCO3 ABG O2 Saturation ABG Base Excess POC ABG pCO2 ABG Hemoglobin ABG Oxyhemoglobin ABG Chloride ABG Glucose Oxyhemoglobin Sodium Potassium Chloride Carbon Dioxide BUN Creatinine Glucose POC Glucose 152 H 132 H 159 H Lactic Acid Calcium Phosphorus Magnesium AST ALT Lactate Dehydrogenase Total Bilirubin Direct Bilirubin CK-MB (CK-2) C-Reactive Protein NT-Pro-B Natriuret Pep Total Protein Albumin Arterial Blood Glucose Urine WBC (Auto) Urine Creatinine 01/30/20 01/30/20 01/30/20 12:27 17:42 23:28 WBC RBC Hgb Hct MCHC RDW MCV MCH Lymph % (Auto) [facility] % (Auto) [facility] # Eos # Lymph # (Auto) [facility] # (Auto) Eos # (Auto) Seg Neutrophils % Seg Neuts % (Manual) Baso # (Auto) Lymphocytes % (Manual) Monocytes % (Manual) Eosinophils % (Manual) Basophils % (Manual) Seg Neutrophils # Seg Neutrophils # Man Lymphocytes # (Manual) Monocytes # (Manual) Eosinophils # (Manual) Nucleated RBC % Basophils # (Manual) PT INR APTT Heparin Anti-Xa Level ABG pH POC ABG pO2 ABG pO2 ABG HCO3 ABG O2 Saturation ABG Base Excess POC ABG pCO2 ABG Hemoglobin ABG Oxyhemoglobin ABG Chloride ABG Glucose Oxyhemoglobin Sodium Potassium Chloride Carbon Dioxide BUN Creatinine Glucose POC Glucose 151 H 144 H 164 H Lactic Acid Calcium Phosphorus Magnesium AST ALT Lactate Dehydrogenase Total Bilirubin Direct Bilirubin CK-MB (CK-2) C-Reactive Protein NT-Pro-B Natriuret Pep Total Protein Albumin Arterial Blood Glucose Urine WBC (Auto) Urine Creatinine 01/31/20 01/31/20 01/31/20 05:51 11:51 18:06 WBC RBC Hgb Hct MCHC RDW MCV MCH Lymph % (Auto) [facility] % (Auto) [facility] # Eos # Lymph # (Auto) [facility] # (Auto) Eos # (Auto) Seg Neutrophils % Seg Neuts % (Manual) Baso # (Auto) Lymphocytes % (Manual) Monocytes % (Manual) Eosinophils % (Manual) Basophils % (Manual) Seg Neutrophils # Seg Neutrophils # Man Lymphocytes # (Manual) Monocytes # (Manual) Eosinophils # (Manual) Nucleated RBC % Basophils # (Manual) PT INR APTT Heparin Anti-Xa Level ABG pH POC ABG pO2 ABG pO2 ABG HCO3 ABG O2 Saturation ABG Base Excess POC ABG pCO2 ABG Hemoglobin ABG Oxyhemoglobin ABG Chloride ABG Glucose Oxyhemoglobin Sodium Potassium Chloride Carbon Dioxide BUN Creatinine Glucose POC Glucose 131 H 167 H 210 H Lactic Acid Calcium Phosphorus Magnesium AST ALT Lactate Dehydrogenase Total Bilirubin Direct Bilirubin CK-MB (CK-2) C-Reactive Protein NT-Pro-B Natriuret Pep Total Protein Albumin Arterial Blood Glucose Urine WBC (Auto) Urine Creatinine 01/31/20 01/31/20 02/01/20 19:24 Unknown 00:34 WBC RBC Hgb Hct MCHC RDW MCV MCH Lymph % (Auto) [facility] % (Auto) [facility] # Eos # Lymph # (Auto) [facility] # (Auto) Eos # (Auto) Seg Neutrophils % Seg Neuts % (Manual) Baso # (Auto) Lymphocytes % (Manual) Monocytes % (Manual) Eosinophils % (Manual) Basophils % (Manual) Seg Neutrophils # Seg Neutrophils # Man Lymphocytes # (Manual) Monocytes # (Manual) Eosinophils # (Manual) Nucleated RBC % Basophils # (Manual) PT INR APTT Heparin Anti-Xa Level ABG pH POC ABG pO2 ABG pO2 ABG HCO3 ABG O2 Saturation ABG Base Excess POC ABG pCO2 ABG Hemoglobin ABG Oxyhemoglobin ABG Chloride ABG Glucose Oxyhemoglobin Sodium Potassium Chloride 95.3 L Carbon Dioxide 33 H BUN 36 H Creatinine Glucose 187 H POC Glucose 116 H Lactic Acid Calcium Phosphorus Magnesium AST ALT Lactate Dehydrogenase Total Bilirubin Direct Bilirubin CK-MB (CK-2) C-Reactive Protein NT-Pro-B Natriuret Pep Total Protein Albumin Arterial Blood Glucose Urine WBC (Auto) Urine Creatinine 57.4 H 02/01/20 02/01/20 02/01/20 05:24 10:40 12:29 WBC RBC Hgb Hct MCHC RDW MCV MCH Lymph % (Auto) [facility] % (Auto) [facility] # Eos # Lymph # (Auto) [facility] # (Auto) Eos # (Auto) Seg Neutrophils % Seg Neuts % (Manual) Baso # (Auto) Lymphocytes % (Manual) Monocytes % (Manual) Eosinophils % (Manual) Basophils % (Manual) Seg Neutrophils # Seg Neutrophils # Man Lymphocytes # (Manual) Monocytes # (Manual) Eosinophils # (Manual) Nucleated RBC % Basophils # (Manual) PT INR APTT Heparin Anti-Xa Level ABG pH POC ABG pO2 ABG pO2 ABG HCO3 ABG O2 Saturation ABG Base Excess POC ABG pCO2 ABG Hemoglobin ABG Oxyhemoglobin ABG Chloride ABG Glucose Oxyhemoglobin Sodium Potassium Chloride Carbon Dioxide BUN Creatinine Glucose POC Glucose 142 H 165 H 151 H Lactic Acid Calcium Phosphorus Magnesium AST ALT Lactate Dehydrogenase Total Bilirubin Direct Bilirubin CK-MB (CK-2) C-Reactive Protein NT-Pro-B Natriuret Pep Total Protein Albumin Arterial Blood Glucose Urine WBC (Auto) Urine Creatinine 02/01/20 02/01/20 02/02/20 17:16 23:23 06:36 WBC RBC Hgb Hct MCHC RDW MCV MCH Lymph % (Auto) [facility] % (Auto) [facility] # Eos # Lymph # (Auto) [facility] # (Auto) Eos # (Auto) Seg Neutrophils % Seg Neuts % (Manual) Baso # (Auto) Lymphocytes % (Manual) Monocytes % (Manual) Eosinophils % (Manual) Basophils % (Manual) Seg Neutrophils # Seg Neutrophils # Man Lymphocytes # (Manual) Monocytes # (Manual) Eosinophils # (Manual) Nucleated RBC % Basophils # (Manual) PT INR APTT Heparin Anti-Xa Level ABG pH POC ABG pO2 ABG pO2 ABG HCO3 ABG O2 Saturation ABG Base Excess POC ABG pCO2 ABG Hemoglobin ABG Oxyhemoglobin ABG Chloride ABG Glucose Oxyhemoglobin Sodium Potassium Chloride Carbon Dioxide BUN Creatinine Glucose POC Glucose 137 H 145 H 181 H Lactic Acid Calcium Phosphorus Magnesium AST ALT Lactate Dehydrogenase Total Bilirubin Direct Bilirubin CK-MB (CK-2) C-Reactive Protein NT-Pro-B Natriuret Pep Total Protein Albumin Arterial Blood Glucose Urine WBC (Auto) Urine Creatinine 02/02/20 02/02/20 02/02/20 10:01 12:05 17:54 WBC RBC Hgb Hct MCHC RDW MCV MCH Lymph % (Auto) [facility] % (Auto) [facility] # Eos # Lymph # (Auto) [facility] # (Auto) Eos # (Auto) Seg Neutrophils % Seg Neuts % (Manual) Baso # (Auto) Lymphocytes % (Manual) Monocytes % (Manual) Eosinophils % (Manual) Basophils % (Manual) Seg Neutrophils # Seg Neutrophils # Man Lymphocytes # (Manual) Monocytes # (Manual) Eosinophils # (Manual) Nucleated RBC % Basophils # (Manual) PT INR APTT Heparin Anti-Xa Level ABG pH POC ABG pO2 ABG pO2 ABG HCO3 ABG O2 Saturation ABG Base Excess POC ABG pCO2 ABG Hemoglobin ABG Oxyhemoglobin ABG Chloride ABG Glucose Oxyhemoglobin Sodium Potassium Chloride 95.3 L Carbon Dioxide BUN 44 H Creatinine Glucose 234 H POC Glucose 184 H 127 H Lactic Acid Calcium Phosphorus Magnesium AST 363 H ALT 457 H Lactate Dehydrogenase Total Bilirubin Direct Bilirubin CK-MB (CK-2) C-Reactive Protein NT-Pro-B Natriuret Pep Total Protein Albumin 3.0 L Arterial Blood Glucose Urine WBC (Auto) Urine Creatinine 02/02/20 02/03/20 02/03/20 23:47 05:32 07:04 WBC 13.0 H RBC Hgb 9.5 L Hct 30.8 L MCHC 31 L RDW 19.6 H MCV 81 L MCH 25 L Lymph % (Auto) [facility] % (Auto) 9.[address] [facility] # Eos # Lymph # (Auto) [facility] # (Auto) 1.2 H Eos # (Auto) Seg Neutrophils % 72.3 H Seg Neuts % (Manual) Baso # (Auto) Lymphocytes % (Manual) Monocytes % (Manual) Eosinophils % (Manual) Basophils % (Manual) Seg Neutrophils # 9.4 H Seg Neutrophils # Man Lymphocytes # (Manual) Monocytes # (Manual) Eosinophils # (Manual) Nucleated RBC % Basophils # (Manual) PT INR APTT Heparin Anti-Xa Level ABG pH POC ABG pO2 ABG pO2 ABG HCO3 ABG O2 Saturation ABG Base Excess POC ABG pCO2 ABG Hemoglobin ABG Oxyhemoglobin ABG Chloride ABG Glucose Oxyhemoglobin Sodium Potassium Chloride Carbon Dioxide BUN Creatinine Glucose POC Glucose 124 H 129 H Lactic Acid Calcium Phosphorus Magnesium AST ALT Lactate Dehydrogenase Total Bilirubin Direct Bilirubin CK-MB (CK-2) C-Reactive Protein NT-Pro-B Natriuret Pep Total Protein Albumin Arterial Blood Glucose Urine WBC (Auto) Urine Creatinine 02/03/20 02/03/20 02/03/20 07:04 11:32 12:49 WBC RBC Hgb Hct MCHC RDW MCV MCH Lymph % (Auto) [facility] % (Auto) [facility] # Eos # Lymph # (Auto) [facility] # (Auto) Eos # (Auto) Seg Neutrophils % Seg Neuts % (Manual) Baso # (Auto) Lymphocytes % (Manual) Monocytes % (Manual) Eosinophils % (Manual) Basophils % (Manual) Seg Neutrophils # Seg Neutrophils # Man Lymphocytes # (Manual) Monocytes # (Manual) Eosinophils # (Manual) Nucleated RBC % Basophils # (Manual) PT INR APTT Heparin Anti-Xa Level ABG pH POC ABG pO2 ABG pO2 ABG HCO3 ABG O2 Saturation ABG Base Excess POC ABG pCO2 ABG Hemoglobin ABG Oxyhemoglobin ABG Chloride ABG Glucose Oxyhemoglobin Sodium Potassium Chloride 97.9 L Carbon Dioxide 33 H BUN 39 H Creatinine Glucose 119 H POC Glucose 138 H Lactic Acid Calcium Phosphorus Magnesium 2.60 H AST ALT Lactate Dehydrogenase Total Bilirubin Direct Bilirubin CK-MB (CK-2) C-Reactive Protein NT-Pro-B Natriuret Pep Total Protein Albumin Arterial Blood Glucose Urine WBC (Auto) Urine Creatinine 02/03/20 02/04/20 02/04/20 18:28 16:24 16:24 WBC RBC 3.38 L Hgb 8.6 L Hct 26.9 L MCHC RDW 19.5 H MCV 80 L MCH 26 L Lymph % (Auto) [facility] % (Auto) [facility] # Eos # Lymph # (Auto) [facility] # (Auto) Eos # (Auto) Seg Neutrophils % Seg Neuts % (Manual) Baso # (Auto) Lymphocytes % (Manual) Monocytes % (Manual) Eosinophils % (Manual) Basophils % (Manual) Seg Neutrophils # Seg Neutrophils # Man Lymphocytes # (Manual) Monocytes # (Manual) Eosinophils # (Manual) Nucleated RBC % Basophils # (Manual) PT INR APTT Heparin Anti-Xa Level ABG pH POC ABG pO2 ABG pO2 ABG HCO3 ABG O2 Saturation ABG Base Excess POC ABG pCO2 ABG Hemoglobin ABG Oxyhemoglobin ABG Chloride ABG Glucose Oxyhemoglobin Sodium Potassium 3.4 L Chloride Carbon Dioxide 31 H BUN 37 H Creatinine Glucose 70 L POC Glucose 118 H Lactic Acid Calcium Phosphorus Magnesium AST 169 H ALT 394 H Lactate Dehydrogenase Total Bilirubin 1.50 H Direct Bilirubin CK-MB (CK-2) C-Reactive Protein NT-Pro-B Natriuret Pep Total Protein Albumin 2.9 L Arterial Blood Glucose Urine WBC (Auto) Urine Creatinine 02/05/20 02/05/20 02/05/20 00:41 06:37 17:14 WBC RBC Hgb Hct MCHC RDW MCV MCH Lymph % (Auto) [facility] % (Auto) [facility] # Eos # Lymph # (Auto) [facility] # (Auto) Eos # (Auto) Seg Neutrophils % Seg Neuts % (Manual) Baso # (Auto) Lymphocytes % (Manual) Monocytes % (Manual) Eosinophils % (Manual) Basophils % (Manual) Seg Neutrophils # Seg Neutrophils # Man Lymphocytes # (Manual) Monocytes # (Manual) Eosinophils # (Manual) Nucleated RBC % Basophils # (Manual) PT INR APTT Heparin Anti-Xa Level ABG pH POC ABG pO2 ABG pO2 ABG HCO3 ABG O2 Saturation ABG Base Excess POC ABG pCO2 ABG Hemoglobin ABG Oxyhemoglobin ABG Chloride ABG Glucose Oxyhemoglobin Sodium Potassium 3.1 L Chloride Carbon Dioxide 35 H BUN 32 H Creatinine 0.7 L Glucose POC Glucose 69 L 127 H Lactic Acid Calcium Phosphorus Magnesium AST 134 H ALT 352 H Lactate Dehydrogenase Total Bilirubin 1.60 H Direct Bilirubin CK-MB (CK-2) C-Reactive Protein NT-Pro-B Natriuret Pep Total Protein Albumin 2.9 L Arterial Blood Glucose Urine WBC (Auto) Urine Creatinine 02/05/20 02/06/20 02/06/20 23:43 05:32 08:01 WBC RBC Hgb Hct MCHC RDW MCV MCH Lymph % (Auto) [facility] % (Auto) [facility] # Eos # Lymph # (Auto) [facility] # (Auto) Eos # (Auto) Seg Neutrophils % Seg Neuts % (Manual) Baso # (Auto) Lymphocytes % (Manual) Monocytes % (Manual) Eosinophils % (Manual) Basophils % (Manual) Seg Neutrophils # Seg Neutrophils # Man Lymphocytes # (Manual) Monocytes # (Manual) Eosinophils # (Manual) Nucleated RBC % Basophils # (Manual) PT INR APTT Heparin Anti-Xa Level ABG pH POC ABG pO2 ABG pO2 ABG HCO3 ABG O2 Saturation ABG Base Excess POC ABG pCO2 ABG Hemoglobin ABG Oxyhemoglobin ABG Chloride ABG Glucose Oxyhemoglobin Sodium Potassium Chloride Carbon Dioxide BUN 40 H Creatinine Glucose 132 H POC Glucose 129 H 131 H Lactic Acid Calcium Phosphorus Magnesium AST ALT Lactate Dehydrogenase Total Bilirubin Direct Bilirubin CK-MB (CK-2) C-Reactive Protein NT-Pro-B Natriuret Pep Total Protein Albumin Arterial Blood Glucose Urine WBC (Auto) Urine Creatinine 02/06/20 02/06/20 02/06/20 11:51 16:28 17:32 WBC RBC Hgb Hct MCHC RDW MCV MCH Lymph % (Auto) [facility] % (Auto) [facility] # Eos # Lymph # (Auto) [facility] # (Auto) Eos # (Auto) Seg Neutrophils % Seg Neuts % (Manual) Baso # (Auto) Lymphocytes % (Manual) Monocytes % (Manual) Eosinophils % (Manual) Basophils % (Manual) Seg Neutrophils # Seg Neutrophils # Man Lymphocytes # (Manual) Monocytes # (Manual) Eosinophils # (Manual) Nucleated RBC % Basophils # (Manual) PT INR APTT Heparin Anti-Xa Level ABG pH POC ABG pO2 ABG pO2 ABG HCO3 ABG O2 Saturation ABG Base Excess POC ABG pCO2 ABG Hemoglobin ABG Oxyhemoglobin ABG Chloride ABG Glucose Oxyhemoglobin Sodium Potassium Chloride Carbon Dioxide BUN Creatinine Glucose POC Glucose 167 H 129 H Lactic Acid Calcium Phosphorus Magnesium AST 824 H ALT 948 H Lactate Dehydrogenase Total Bilirubin 1.70 H Direct Bilirubin 1.2 H CK-MB (CK-2) C-Reactive Protein NT-Pro-B Natriuret Pep Total Protein Albumin 2.9 L Arterial Blood Glucose Urine WBC (Auto) Urine Creatinine 02/07/20 02/07/20 02/07/20 00:11 04:57 04:57 WBC RBC Hgb 9.2 L Hct 29.7 L MCHC 31 L RDW 20.2 H MCV 80 L MCH 25 L Lymph % (Auto) [facility] % (Auto) [facility] # Eos # Lymph # (Auto) [facility] # (Auto) Eos # (Auto) Seg Neutrophils % Seg Neuts % (Manual) Baso # (Auto) Lymphocytes % (Manual) Monocytes % (Manual) Eosinophils % (Manual) Basophils % (Manual) Seg Neutrophils # Seg Neutrophils # Man Lymphocytes # (Manual) Monocytes # (Manual) Eosinophils # (Manual) Nucleated RBC % Basophils # (Manual) PT INR APTT Heparin Anti-Xa Level ABG pH POC ABG pO2 ABG pO2 ABG HCO3 ABG O2 Saturation ABG Base Excess POC ABG pCO2 ABG Hemoglobin ABG Oxyhemoglobin ABG Chloride ABG Glucose Oxyhemoglobin Sodium Potassium 3.4 L D Chloride Carbon Dioxide 32 H BUN 39 H Creatinine Glucose 106 H POC Glucose 121 H Lactic Acid Calcium Phosphorus Magnesium AST ALT Lactate Dehydrogenase Total Bilirubin Direct Bilirubin CK-MB (CK-2) C-Reactive Protein NT-Pro-B Natriuret Pep Total Protein Albumin Arterial Blood Glucose Urine WBC (Auto) Urine Creatinine 02/07/20 02/07/20 02/07/20 15:03 15:03 17:11 WBC RBC Hgb Hct MCHC RDW MCV MCH Lymph % (Auto) [facility] % (Auto) [facility] # Eos # Lymph # (Auto) [facility] # (Auto) Eos # (Auto) Seg Neutrophils % Seg Neuts % (Manual) Baso # (Auto) Lymphocytes % (Manual) Monocytes % (Manual) Eosinophils % (Manual) Basophils % (Manual) Seg Neutrophils # Seg Neutrophils # Man Lymphocytes # (Manual) Monocytes # (Manual) Eosinophils # (Manual) Nucleated RBC % Basophils # (Manual) PT 27.0 H INR 2.46 H APTT Heparin Anti-Xa Level ABG pH POC ABG pO2 ABG pO2 ABG HCO3 ABG O2 Saturation ABG Base Excess POC ABG pCO2 ABG Hemoglobin ABG Oxyhemoglobin ABG Chloride ABG Glucose Oxyhemoglobin Sodium Potassium Chloride Carbon Dioxide BUN Creatinine Glucose POC Glucose 109 H Lactic Acid Calcium Phosphorus Magnesium AST 424 H ALT 796 H Lactate Dehydrogenase Total Bilirubin 1.60 H Direct Bilirubin 1.2 H CK-MB (CK-2) C-Reactive Protein NT-Pro-B Natriuret Pep Total Protein Albumin 2.9 L Arterial Blood Glucose Urine WBC (Auto) Urine Creatinine 02/08/20 02/08/20 02/08/20 12:14 17:44 19:00 WBC RBC Hgb Hct MCHC RDW MCV MCH Lymph % (Auto) [facility] % (Auto) [facility] # Eos # Lymph # (Auto) [facility] # (Auto) Eos # (Auto) Seg Neutrophils % Seg Neuts % (Manual) Baso # (Auto) Lymphocytes % (Manual) Monocytes % (Manual) Eosinophils % (Manual) Basophils % (Manual) Seg Neutrophils # Seg Neutrophils # Man Lymphocytes # (Manual) Monocytes # (Manual) Eosinophils # (Manual) Nucleated RBC % Basophils # (Manual) PT INR APTT Heparin Anti-Xa Level ABG pH POC ABG pO2 ABG pO2 ABG HCO3 ABG O2 Saturation ABG Base Excess POC ABG pCO2 ABG Hemoglobin ABG Oxyhemoglobin ABG Chloride ABG Glucose Oxyhemoglobin Sodium Potassium Chloride Carbon Dioxide BUN Creatinine Glucose POC Glucose 111 H 107 H Lactic Acid Calcium Phosphorus Magnesium AST 309 H ALT 650 H Lactate Dehydrogenase Total Bilirubin 1.30 H Direct Bilirubin 0.9 H CK-MB (CK-2) C-Reactive Protein NT-Pro-B Natriuret Pep Total Protein 6.2 L Albumin 2.7 L Arterial Blood Glucose Urine WBC (Auto) Urine Creatinine 02/09/20 02/09/20 02/09/20 05:41 12:28 18:07 WBC RBC Hgb Hct MCHC RDW MCV MCH Lymph % (Auto) [facility] % (Auto) [facility] # Eos # Lymph # (Auto) [facility] # (Auto) Eos # (Auto) Seg Neutrophils % Seg Neuts % (Manual) Baso # (Auto) Lymphocytes % (Manual) Monocytes % (Manual) Eosinophils % (Manual) Basophils % (Manual) Seg Neutrophils # Seg Neutrophils # Man Lymphocytes # (Manual) Monocytes # (Manual) Eosinophils # (Manual) Nucleated RBC % Basophils # (Manual) PT INR APTT Heparin Anti-Xa Level ABG pH POC ABG pO2 ABG pO2 ABG HCO3 ABG O2 Saturation ABG Base Excess POC ABG pCO2 ABG Hemoglobin ABG Oxyhemoglobin ABG Chloride ABG Glucose Oxyhemoglobin Sodium Potassium Chloride Carbon Dioxide BUN Creatinine Glucose POC Glucose 113 H 140 H 143 H Lactic Acid Calcium Phosphorus Magnesium AST ALT Lactate Dehydrogenase Total Bilirubin Direct Bilirubin CK-MB (CK-2) C-Reactive Protein NT-Pro-B Natriuret Pep Total Protein Albumin Arterial Blood Glucose Urine WBC (Auto) Urine Creatinine 02/09/20 02/09/20 02/10/20 21:40 23:45 06:00 WBC RBC Hgb Hct MCHC RDW MCV MCH Lymph % (Auto) [facility] % (Auto) [facility] # Eos # Lymph # (Auto) [facility] # (Auto) Eos # (Auto) Seg Neutrophils % Seg Neuts % (Manual) Baso # (Auto) Lymphocytes % (Manual) Monocytes % (Manual) Eosinophils % (Manual) Basophils % (Manual) Seg Neutrophils # Seg Neutrophils # Man Lymphocytes # (Manual) Monocytes # (Manual) Eosinophils # (Manual) Nucleated RBC % Basophils # (Manual) PT INR APTT Heparin Anti-Xa Level ABG pH POC ABG pO2 ABG pO2 59.8 L ABG HCO3 33.3 H ABG O2 Saturation 88.9 L ABG Base Excess 7.4 H POC ABG pCO2 ABG Hemoglobin 10.4 L ABG Oxyhemoglobin ABG Chloride ABG Glucose Oxyhemoglobin 86.3 L Sodium Potassium Chloride Carbon Dioxide BUN Creatinine Glucose POC Glucose 127 H 114 H Lactic Acid Calcium Phosphorus Magnesium AST ALT Lactate Dehydrogenase Total Bilirubin Direct Bilirubin CK-MB (CK-2) C-Reactive Protein NT-Pro-B Natriuret Pep Total Protein Albumin Arterial Blood Glucose Urine WBC (Auto) Urine Creatinine 02/10/20 02/10/20 02/10/20 07:40 07:40 13:38 WBC 11.5 H RBC Hgb 10.6 L Hct 34.7 L MCHC 31 L RDW 19.8 H MCV 79 L MCH 24 L Lymph % (Auto) [facility] % (Auto) 9.[address] [facility] # Eos # Lymph # (Auto) [facility] # (Auto) 1.1 H Eos # (Auto) Seg Neutrophils % Seg Neuts % (Manual) Baso # (Auto) Lymphocytes % (Manual) Monocytes % (Manual) Eosinophils % (Manual) Basophils % (Manual) Seg Neutrophils # Seg Neutrophils # Man Lymphocytes # (Manual) Monocytes # (Manual) Eosinophils # (Manual) Nucleated RBC % Basophils # (Manual) PT INR APTT Heparin Anti-Xa Level ABG pH POC ABG pO2 ABG pO2 ABG HCO3 ABG O2 Saturation ABG Base Excess POC ABG pCO2 ABG Hemoglobin ABG Oxyhemoglobin ABG Chloride ABG Glucose Oxyhemoglobin Sodium 151 H Potassium Chloride 107.2 H Carbon Dioxide 36 H BUN 25 H Creatinine 0.7 L Glucose 114 H POC Glucose 116 H Lactic Acid Calcium Phosphorus Magnesium 2.40 H AST ALT Lactate Dehydrogenase Total Bilirubin Direct Bilirubin CK-MB (CK-2) C-Reactive Protein NT-Pro-B Natriuret Pep Total Protein Albumin Arterial Blood Glucose Urine WBC (Auto) Urine Creatinine 02/10/20 02/11/20 02/11/20 17:44 05:47 12:21 WBC RBC Hgb Hct MCHC RDW MCV MCH Lymph % (Auto) [facility] % (Auto) [facility] # Eos # Lymph # (Auto) [facility] # (Auto) Eos # (Auto) Seg Neutrophils % Seg Neuts % (Manual) Baso # (Auto) Lymphocytes % (Manual) Monocytes % (Manual) Eosinophils % (Manual) Basophils % (Manual) Seg Neutrophils # Seg Neutrophils # Man Lymphocytes # (Manual) Monocytes # (Manual) Eosinophils # (Manual) Nucleated RBC % Basophils # (Manual) PT INR APTT Heparin Anti-Xa Level ABG pH POC ABG pO2 ABG pO2 ABG HCO3 ABG O2 Saturation ABG Base Excess POC ABG pCO2 ABG Hemoglobin ABG Oxyhemoglobin ABG Chloride ABG Glucose Oxyhemoglobin Sodium Potassium Chloride Carbon Dioxide BUN Creatinine Glucose POC Glucose 139 H 173 H 143 H Lactic Acid Calcium Phosphorus Magnesium AST ALT Lactate Dehydrogenase Total Bilirubin Direct Bilirubin CK-MB (CK-2) C-Reactive Protein NT-Pro-B Natriuret Pep Total Protein Albumin Arterial Blood Glucose Urine WBC (Auto) Urine Creatinine 02/11/20 02/11/20 02/12/20 13:43 14:11 00:15 WBC RBC Hgb Hct MCHC RDW MCV MCH Lymph % (Auto) [facility] % (Auto) [facility] # Eos # Lymph # (Auto) [facility] # (Auto) Eos # (Auto) Seg Neutrophils % Seg Neuts % (Manual) Baso # (Auto) Lymphocytes % (Manual) Monocytes % (Manual) Eosinophils % (Manual) Basophils % (Manual) Seg Neutrophils # Seg Neutrophils # Man Lymphocytes # (Manual) Monocytes # (Manual) Eosinophils # (Manual) Nucleated RBC % Basophils # (Manual) PT INR APTT Heparin Anti-Xa Level ABG pH 7.502 H POC ABG pO2 77.7 L ABG pO2 ABG HCO3 ABG O2 Saturation ABG Base Excess POC ABG pCO2 ABG Hemoglobin 11.1 L ABG Oxyhemoglobin ABG Chloride 108.0 H ABG Glucose 151 H Oxyhemoglobin Sodium Potassium Chloride Carbon Dioxide BUN Creatinine Glucose POC Glucose 130 H 125 H Lactic Acid Calcium Phosphorus Magnesium AST ALT Lactate Dehydrogenase Total Bilirubin Direct Bilirubin CK-MB (CK-2) C-Reactive Protein NT-Pro-B Natriuret Pep Total Protein Albumin Arterial Blood Glucose 151 H Urine WBC (Auto) Urine Creatinine 02/12/20 02/12/20 02/12/20 04:56 04:56 17:42 WBC RBC Hgb 9.9 L Hct 31.8 L MCHC 31 L RDW 19.4 H MCV 79 L MCH 25 L Lymph % (Auto) [facility] % (Auto) 10.[address] [facility] # Eos # Lymph # (Auto) [facility] # (Auto) 1.0 H Eos # (Auto) Seg Neutrophils % Seg Neuts % (Manual) Baso # (Auto) Lymphocytes % (Manual) Monocytes % (Manual) Eosinophils % (Manual) Basophils % (Manual) Seg Neutrophils # Seg Neutrophils # Man Lymphocytes # (Manual) Monocytes # (Manual) Eosinophils # (Manual) Nucleated RBC % Basophils # (Manual) PT INR APTT Heparin Anti-Xa Level ABG pH POC ABG pO2 ABG pO2 ABG HCO3 ABG O2 Saturation ABG Base Excess POC ABG pCO2 ABG Hemoglobin ABG Oxyhemoglobin ABG Chloride ABG Glucose Oxyhemoglobin Sodium 149 H Potassium Chloride 108.6 H Carbon Dioxide BUN 28 H Creatinine 0.7 L Glucose 108 H POC Glucose 113 H Lactic Acid Calcium Phosphorus Magnesium AST ALT Lactate Dehydrogenase Total Bilirubin Direct Bilirubin CK-MB (CK-2) C-Reactive Protein NT-Pro-B Natriuret Pep Total Protein Albumin Arterial Blood Glucose Urine WBC (Auto) Urine Creatinine 02/13/20 02/13/20 02/13/20 00:39 05:36 12:25 WBC RBC Hgb Hct MCHC RDW MCV MCH Lymph % (Auto) [facility] % (Auto) [facility] # Eos # Lymph # (Auto) [facility] # (Auto) Eos # (Auto) Seg Neutrophils % Seg Neuts % (Manual) Baso # (Auto) Lymphocytes % (Manual) Monocytes % (Manual) Eosinophils % (Manual) Basophils % (Manual) Seg Neutrophils # Seg Neutrophils # Man Lymphocytes # (Manual) Monocytes # (Manual) Eosinophils # (Manual) Nucleated RBC % Basophils # (Manual) PT INR APTT Heparin Anti-Xa Level ABG pH POC ABG pO2 ABG pO2 ABG HCO3 ABG O2 Saturation ABG Base Excess POC ABG pCO2 ABG Hemoglobin ABG Oxyhemoglobin ABG Chloride ABG Glucose Oxyhemoglobin Sodium Potassium Chloride Carbon Dioxide BUN Creatinine Glucose POC Glucose 129 H 126 H 129 H Lactic Acid Calcium Phosphorus Magnesium AST ALT Lactate Dehydrogenase Total Bilirubin Direct Bilirubin CK-MB (CK-2) C-Reactive Protein NT-Pro-B Natriuret Pep Total Protein Albumin Arterial Blood Glucose Urine WBC (Auto) Urine Creatinine 02/13/20 02/14/20 02/14/20 17:59 00:15 05:41 WBC RBC Hgb Hct MCHC RDW MCV MCH Lymph % (Auto) [facility] % (Auto) [facility] # Eos # Lymph # (Auto) [facility] # (Auto) Eos # (Auto) Seg Neutrophils % Seg Neuts % (Manual) Baso # (Auto) Lymphocytes % (Manual) Monocytes % (Manual) Eosinophils % (Manual) Basophils % (Manual) Seg Neutrophils # Seg Neutrophils # Man Lymphocytes # (Manual) Monocytes # (Manual) Eosinophils # (Manual) Nucleated RBC % Basophils # (Manual) PT INR APTT Heparin Anti-Xa Level ABG pH POC ABG pO2 ABG pO2 ABG HCO3 ABG O2 Saturation ABG Base Excess POC ABG pCO2 ABG Hemoglobin ABG Oxyhemoglobin ABG Chloride ABG Glucose Oxyhemoglobin Sodium Potassium Chloride Carbon Dioxide BUN Creatinine Glucose POC Glucose 153 H 130 H 130 H Lactic Acid Calcium Phosphorus Magnesium AST ALT Lactate Dehydrogenase Total Bilirubin Direct Bilirubin CK-MB (CK-2) C-Reactive Protein NT-Pro-B Natriuret Pep Total Protein Albumin Arterial Blood Glucose Urine WBC (Auto) Urine Creatinine 02/14/20 02/15/20 02/15/20 11:32 00:12 05:27 WBC RBC Hgb Hct MCHC RDW MCV MCH Lymph % (Auto) [facility] % (Auto) [facility] # Eos # Lymph # (Auto) [facility] # (Auto) Eos # (Auto) Seg Neutrophils % Seg Neuts % (Manual) Baso # (Auto) Lymphocytes % (Manual) Monocytes % (Manual) Eosinophils % (Manual) Basophils % (Manual) Seg Neutrophils # Seg Neutrophils # Man Lymphocytes # (Manual) Monocytes # (Manual) Eosinophils # (Manual) Nucleated RBC % Basophils # (Manual) PT INR APTT Heparin Anti-Xa Level ABG pH POC ABG pO2 ABG pO2 ABG HCO3 ABG O2 Saturation ABG Base Excess POC ABG pCO2 ABG Hemoglobin ABG Oxyhemoglobin ABG Chloride ABG Glucose Oxyhemoglobin Sodium Potassium Chloride Carbon Dioxide BUN Creatinine Glucose POC Glucose 157 H 124 H 111 H Lactic Acid Calcium Phosphorus Magnesium AST ALT Lactate Dehydrogenase Total Bilirubin Direct Bilirubin CK-MB (CK-2) C-Reactive Protein NT-Pro-B Natriuret Pep Total Protein Albumin Arterial Blood Glucose Urine WBC (Auto) Urine Creatinine 02/15/20 02/15/20 02/15/20 06:59 06:59 11:14 WBC RBC Hgb 10.4 L Hct 33.7 L MCHC 31 L RDW 19.4 H MCV 80 L MCH 24 L Lymph % (Auto) [facility] % (Auto) [facility] # Eos # Lymph # (Auto) [facility] # (Auto) Eos # (Auto) Seg Neutrophils % Seg Neuts % (Manual) Baso # (Auto) Lymphocytes % (Manual) Monocytes % (Manual) Eosinophils % (Manual) Basophils % (Manual) 2.0 H Seg Neutrophils # Seg Neutrophils # Man Lymphocytes # (Manual) Monocytes # (Manual) Eosinophils # (Manual) Nucleated RBC % 1.0 H Basophils # (Manual) 0.2 H PT INR APTT Heparin Anti-Xa Level ABG pH POC ABG pO2 ABG pO2 ABG HCO3 ABG O2 Saturation ABG Base Excess POC ABG pCO2 ABG Hemoglobin ABG Oxyhemoglobin ABG Chloride ABG Glucose Oxyhemoglobin Sodium 149 H Potassium Chloride 108.4 H Carbon Dioxide 31 H BUN 40 H Creatinine 0.7 L Glucose 150 H POC Glucose 128 H Lactic Acid Calcium Phosphorus Magnesium AST ALT Lactate Dehydrogenase Total Bilirubin Direct Bilirubin CK-MB (CK-2) C-Reactive Protein NT-Pro-B Natriuret Pep Total Protein Albumin Arterial Blood Glucose Urine WBC (Auto) Urine Creatinine 02/15/20 02/15/20 02/16/20 17:46 23:50 05:03 WBC RBC Hgb Hct MCHC RDW MCV MCH Lymph % (Auto) [facility] % (Auto) [facility] # Eos # Lymph # (Auto) [facility] # (Auto) Eos # (Auto) Seg Neutrophils % Seg Neuts % (Manual) Baso # (Auto) Lymphocytes % (Manual) Monocytes % (Manual) Eosinophils % (Manual) Basophils % (Manual) Seg Neutrophils # Seg Neutrophils # Man Lymphocytes # (Manual) Monocytes # (Manual) Eosinophils # (Manual) Nucleated RBC % Basophils # (Manual) PT INR APTT Heparin Anti-Xa Level ABG pH POC ABG pO2 ABG pO2 ABG HCO3 ABG O2 Saturation ABG Base Excess POC ABG pCO2 ABG Hemoglobin ABG Oxyhemoglobin ABG Chloride ABG Glucose Oxyhemoglobin Sodium Potassium Chloride Carbon Dioxide BUN Creatinine Glucose POC Glucose 154 H 135 H 148 H Lactic Acid Calcium Phosphorus Magnesium AST ALT Lactate Dehydrogenase Total Bilirubin Direct Bilirubin CK-MB (CK-2) C-Reactive Protein NT-Pro-B Natriuret Pep Total Protein Albumin Arterial Blood Glucose Urine WBC (Auto) Urine Creatinine 02/16/20 02/16/20 02/16/20 07:53 11:28 17:52 WBC RBC Hgb Hct MCHC RDW MCV MCH Lymph % (Auto) [facility] % (Auto) [facility] # Eos # Lymph # (Auto) [facility] # (Auto) Eos # (Auto) Seg Neutrophils % Seg Neuts % (Manual) Baso # (Auto) Lymphocytes % (Manual) Monocytes % (Manual) Eosinophils % (Manual) Basophils % (Manual) Seg Neutrophils # Seg Neutrophils # Man Lymphocytes # (Manual) Monocytes # (Manual) Eosinophils # (Manual) Nucleated RBC % Basophils # (Manual) PT INR APTT Heparin Anti-Xa Level ABG pH POC ABG pO2 ABG pO2 ABG HCO3 ABG O2 Saturation ABG Base Excess POC ABG pCO2 ABG Hemoglobin ABG Oxyhemoglobin ABG Chloride ABG Glucose Oxyhemoglobin Sodium Potassium Chloride 107.9 H Carbon Dioxide BUN 38 H Creatinine 0.6 L Glucose 151 H POC Glucose 123 H 152 H Lactic Acid Calcium Phosphorus Magnesium AST ALT Lactate Dehydrogenase Total Bilirubin Direct Bilirubin CK-MB (CK-2) C-Reactive Protein NT-Pro-B Natriuret Pep Total Protein Albumin Arterial Blood Glucose Urine WBC (Auto) Urine Creatinine 02/16/20 02/17/20 02/17/20 23:49 06:24 11:36 WBC RBC Hgb Hct MCHC RDW MCV MCH Lymph % (Auto) [facility] % (Auto) [facility] # Eos # Lymph # (Auto) [facility] # (Auto) Eos # (Auto) Seg Neutrophils % Seg Neuts % (Manual) Baso # (Auto) Lymphocytes % (Manual) Monocytes % (Manual) Eosinophils % (Manual) Basophils % (Manual) Seg Neutrophils # Seg Neutrophils # Man Lymphocytes # (Manual) Monocytes # (Manual) Eosinophils # (Manual) Nucleated RBC % Basophils # (Manual) PT INR APTT Heparin Anti-Xa Level ABG pH POC ABG pO2 ABG pO2 ABG HCO3 ABG O2 Saturation ABG Base Excess POC ABG pCO2 ABG Hemoglobin ABG Oxyhemoglobin ABG Chloride ABG Glucose Oxyhemoglobin Sodium Potassium Chloride Carbon Dioxide BUN Creatinine Glucose POC Glucose 156 H 193 H 162 H Lactic Acid Calcium Phosphorus Magnesium AST ALT Lactate Dehydrogenase Total Bilirubin Direct Bilirubin CK-MB (CK-2) C-Reactive Protein NT-Pro-B Natriuret Pep Total Protein Albumin Arterial Blood Glucose Urine WBC (Auto) Urine Creatinine 02/17/20 02/17/20 02/18/20 17:55 23:28 05:11 WBC RBC Hgb Hct MCHC RDW MCV MCH Lymph % (Auto) [facility] % (Auto) [facility] # Eos # Lymph # (Auto) [facility] # (Auto) Eos # (Auto) Seg Neutrophils % Seg Neuts % (Manual) Baso # (Auto) Lymphocytes % (Manual) Monocytes % (Manual) Eosinophils % (Manual) Basophils % (Manual) Seg Neutrophils # Seg Neutrophils # Man Lymphocytes # (Manual) Monocytes # (Manual) Eosinophils # (Manual) Nucleated RBC % Basophils # (Manual) PT INR APTT Heparin Anti-Xa Level ABG pH POC ABG pO2 ABG pO2 ABG HCO3 ABG O2 Saturation ABG Base Excess POC ABG pCO2 ABG Hemoglobin ABG Oxyhemoglobin ABG Chloride ABG Glucose Oxyhemoglobin Sodium Potassium Chloride Carbon Dioxide BUN Creatinine Glucose POC Glucose 165 H 146 H 122 H Lactic Acid Calcium Phosphorus Magnesium AST ALT Lactate Dehydrogenase Total Bilirubin Direct Bilirubin CK-MB (CK-2) C-Reactive Protein NT-Pro-B Natriuret Pep Total Protein Albumin Arterial Blood Glucose Urine WBC (Auto) Urine Creatinine 02/18/20 02/18/20 02/19/20 12:24 17:29 00:01 WBC RBC Hgb Hct MCHC RDW MCV MCH Lymph % (Auto) [facility] % (Auto) [facility] # Eos # Lymph # (Auto) [facility] # (Auto) Eos # (Auto) Seg Neutrophils % Seg Neuts % (Manual) Baso # (Auto) Lymphocytes % (Manual) Monocytes % (Manual) Eosinophils % (Manual) Basophils % (Manual) Seg Neutrophils # Seg Neutrophils # Man Lymphocytes # (Manual) Monocytes # (Manual) Eosinophils # (Manual) Nucleated RBC % Basophils # (Manual) PT INR APTT Heparin Anti-Xa Level ABG pH POC ABG pO2 ABG pO2 ABG HCO3 ABG O2 Saturation ABG Base Excess POC ABG pCO2 ABG Hemoglobin ABG Oxyhemoglobin ABG Chloride ABG Glucose Oxyhemoglobin Sodium Potassium Chloride Carbon Dioxide BUN Creatinine Glucose POC Glucose 162 H 136 H 145 H Lactic Acid Calcium Phosphorus Magnesium AST ALT Lactate Dehydrogenase Total Bilirubin Direct Bilirubin CK-MB (CK-2) C-Reactive Protein NT-Pro-B Natriuret Pep Total Protein Albumin Arterial Blood Glucose Urine WBC (Auto) Urine Creatinine 02/19/20 02/19/20 05:53 11:44 WBC RBC Hgb Hct MCHC RDW MCV MCH Lymph % (Auto) [facility] % (Auto) [facility] # Eos # Lymph # (Auto) [facility] # (Auto) Eos # (Auto) Seg Neutrophils % Seg Neuts % (Manual) Baso # (Auto) Lymphocytes % (Manual) Monocytes % (Manual) Eosinophils % (Manual) Basophils % (Manual) Seg Neutrophils # Seg Neutrophils # Man Lymphocytes # (Manual) Monocytes # (Manual) Eosinophils # (Manual) Nucleated RBC % Basophils # (Manual) PT INR APTT Heparin Anti-Xa Level ABG pH POC ABG pO2 ABG pO2 ABG HCO3 ABG O2 Saturation ABG Base Excess POC ABG pCO2 ABG Hemoglobin ABG Oxyhemoglobin ABG Chloride ABG Glucose Oxyhemoglobin Sodium Potassium Chloride Carbon Dioxide BUN Creatinine Glucose POC Glucose 116 H 120 H Lactic Acid Calcium Phosphorus Magnesium AST ALT Lactate Dehydrogenase Total Bilirubin Direct Bilirubin CK-MB (CK-2) C-Reactive Protein NT-Pro-B Natriuret Pep Total Protein Albumin Arterial Blood Glucose Urine WBC (Auto) Urine Creatinine Chest x-ray: image reviewed (Worsening RLL infiltrate with small effusions) Allied health notes reviewed: RT
[2020-02-19] MEDS: DIGOXIN 0.5 MG/2 ML INJ IV SCH (16:52)
[2020-02-19] MEDS: ACETAMINOPHEN 325 MG/10.15 ML ORAL LIQD UNIT DOSE FEEDTUBE PRN (17:01)
[2020-02-19] MEDS: POLYETHYLENE GLYCOL 3350 17 GM POWDER PO SCH (21:42)
[2020-02-19] MEDS: TAMSULOSIN 0.4 MG CAP PO SCH (21:42)
[2020-02-20] MEDS: INSULIN REGULAR, HUMAN 100 UNIT/ML 3ML VIAL SUB-Q SCH ×4 (00:21→20:18)
[2020-02-20] MEDS: MORPHINE 2 MG/1 ML INJ IV PRN (00:43)
[2020-02-20 01:13] LABS: Basophils # (Auto) 0.1 K/mm3 (0.0-0.1); Basophils % (Auto) 0.7 % (0.0-1.8); Eosinophils # (Auto) 0.2 K/mm3 (0.0-0.4); Eosinophils % (Auto) 2.7 % (0.0-4.3); Hemoglobin 9.4 gm/dl (11.8-15.2); Lymphocytes # (Auto) 2.1 K/mm3 (1.2-5.4); Lymphocytes % (Auto) 23.5 % (13.4-35.0); Mean Corpuscular HGB Conc 31 % (32-34); Mean Corpuscular Volume 79 fl (84-94); Monocytes # (Auto) 0.8 K/mm3 (0.0-0.8); Monocytes % (Auto) 8.5 % (0.0-7.3); Platelet Count 219 K/mm3 (140-440); Red Blood Count 3.82 M/mm3 (3.65-5.03)
[2020-02-20 01:23] LABS: Blood Urea Nitrogen 34 mg/dL (9-20); Calcium 9.1 mg/dL (8.4-10.2); Hemolysis Index 5
[2020-02-20 01:28] LABS: Red Cell Distribution Width 20.4 % (13.2-15.2)
[2020-02-20 01:30] LABS: BUN/Creatinine Ratio 68
[2020-02-20] MEDS: CLOPIDOGREL 75 MG TAB PO SCH (09:16)
[2020-02-20] MEDS: GLYCOPYRROLATE 2 MG TAB PO SCH ×2 (09:16→16:05)
[2020-02-20] MEDS: MIDODRINE 5 MG TAB PO SCH ×3 (09:16→16:06)
[2020-02-20] MEDS: QUEtiapine 100 MG TAB PO SCH ×2 (09:16→23:36)
[2020-02-20] MEDS: APIXABAN 5 MG TAB PO SCH ×2 (09:16→23:36)
[2020-02-20] MEDS: LANSOPRAZOLE 30 MG SOLUTAB FEEDTUBE SCH (09:16)
--- NOTE | 2020-02-20 09:18 | Progress Note ---
Assessment and Plan Chest pain, resolved LHC done 01/22/20 widely patent previous LAD stent. We found mild nonobstructive atherosclerosis of the mid right coronary artery. Otherwise the rest of the coronary system was without significant atherosclerosis. LVEF 40 to 45%. There was some hypokinesis of the basal inferior wall suggestive of previous or recent infarct. ECG done 01/19/20 shows sinus rhythm with low voltage QRS and subtle ST segment elevations in the inferolateral leads that suggested possible concern for an acute injury at that time. Atrial fibrillation, paroxysmal on metoprolol and digoxin amiodarone discontinued due to liver transaminases Ischemic Cardiomyopathy re-echo this presentation reports an LVEF 40-45%. Hx of CAD Multifocal pneumonia negative COVID-19 test x 3 Chronic Respiratory failure s/p trach History of COPD Acute PE/DVT - on Eliquis Anemia Partial SBO vs ileus Recommendations: Continue current management No new cardiac recommendations Subjective Date of service: 02/20/20 Principal diagnosis: Ac hypoxemic resp failure; Pneumonia; PUI COVID-19; CHF; COPD; HTN Interval history: Patient appears comfortable. Patient has a trach and is mechanically ventilated. Tele is showing rate controlled afib. Objective Vital Signs Temp Pulse Pulse Resp BP Pulse Ox Pulse Ox 02/20/20 08:43 93 H 17 103/77 100 02/20/20 08:36 91 H 103/77 98 02/20/20 08:00 97.9 F 02/20/20 07:00 88 19 113/72 97 02/20/20 06:30 84 15 113/72 97 02/20/20 06:00 86 18 105/75 98 02/20/20 05:30 100 H 14 104/75 97 02/20/20 05:14 89 24 99 02/20/20 05:00 88 14 106/76 97 02/20/20 04:30 92 H 11 L 97/70 96 02/20/20 04:00 98.8 F 103 H 15 103/74 92 02/20/20 03:43 98 02/20/20 03:40 89 118/79 98 02/20/20 03:30 100 H 19 118/79 96 02/20/20 03:00 96 H 12 113/82 97 02/20/20 02:30 90 18 103/79 97 02/20/20 02:00 100 H 14 120/86 98 02/20/20 01:30 94 H 17 113/78 100 02/20/20 01:00 118 H 18 99/77 98 02/20/20 00:35 89 24 99 02/20/20 00:34 89 02/20/20 00:30 83 17 101/68 98 02/20/20 00:12 89 93/69 98 02/20/20 00:00 83 19 92/66 97 02/19/20 23:30 92 H 20 101/68 02/19/20 23:16 98.8 F 02/19/20 23:00 83 19 92/66 96 02/19/20 22:30 93 H 17 114/88 98 02/19/20 22:00 94 H 13 106/79 97 02/19/20 21:30 80 19 111/78 98 02/19/20 21:00 83 19 118/81 97 02/19/20 20:55 85 24 99 02/19/20 20:52 85 02/19/20 20:38 85 111/78 97 02/19/20 20:30 94 H 23 118/81 97 02/19/20 20:00 97.4 F L 83 22 111/82 99 02/19/20 19:30 96 H 9 L 113/71 99 02/19/20 19:00 105 H 29 H 105/78 95 02/19/20 18:30 95 H 19 112/76 96 02/19/20 18:00 103 H 17 112/76 98 02/19/20 17:30 89 22 113/77 97 02/19/20 17:29 97 02/19/20 17:28 94 H 23 113/77 98 02/19/20 17:00 102 H 26 H 113/77 97 02/19/20 16:52 120 H 102/78 02/19/20 16:30 109 H 10 L 121/70 98 02/19/20 16:00 98.9 F 86 93 H 16 121/70 96 02/19/20 15:30 94 H 16 110/83 99 02/19/20 15:00 99 H 21 114/83 99 02/19/20 14:30 103 H 25 H 114/83 96 02/19/20 14:21 85 19 106/83 100 02/19/20 14:00 92 H 8 L 106/83 11/27/20 13:30 87 19 109/82 98 02/19/20 13:00 92 H 7 L 109/82 99 02/19/20 12:30 120 H 20 118/81 98 02/19/20 12:00 98.4 F 115 H 110 H 9 L 93/64 100 02/19/20 11:30 81 15 93/64 97 02/19/20 11:12 87 16 103/78 98 02/19/20 11:00 93 H 18 111/85 98 02/19/20 10:30 91 H 15 111/85 94 02/19/20 10:00 92 H 10 L 106/86 96 02/19/20 09:30 93 H 14 108/78 99 - Physical Examination General: Other (s/p trach) HEENT: Positive: PERRL Neck: Positive: neck supple Cardiac: Positive: irregularly irregular Lungs: Positive: Ventilated Respirations Neuro: Positive: Weakness Abdomen: Positive: Soft Skin: Positive: Clear Extremities: Absent: edema - Labs and Meds CBC 02/20/20 Range/Units 00:24 WBC 9.0 (4.5-11.0) K/mm3 RBC 3.82 (3.65-5.03) M/mm3 Hgb 9.4 L (11.8-15.2) gm/dl Hct 30.0 L (35.5-45.6) % Plt Count 219 (140-440) K/mm3 Lymph # (Auto) 2.1 (1.2-5.4) K/mm3 [facility] # (Auto) 0.8 (0.0-0.8) K/mm3 Eos # (Auto) 0.2 (0.0-0.4) K/mm3 Baso # (Auto) 0.1 (0.0-0.1) K/mm3 Comprehensive Metabolic Panel 02/20/20 Range/Units 00:24 Sodium 147 H (137-145) mmol/L Potassium 3.4 L (3.6-5.0) mmol/L Chloride 106.3 (98-107) mmol/L Carbon Dioxide 31 H (22-30) mmol/L BUN 34 H (9-20) mg/dL Creatinine 0.5 L (0.8-1.3) mg/dL Glucose 135 H (75-100) mg/dL Calcium 9.1 (8.4-10.2) mg/dL - Allied health notes Allied health notes reviewed: RT
--- NOTE | 2020-02-20 09:40 | Progress Note ---
Assessment and Plan Assessment and plan: --Ischemic cardiomyopathy Cardiology is following, status post cardiac catheterization on 01/22/2020; Co ronary artery disease status post PCI and stent to the LAD Continue current cardiac medications --Acute on chronic hypoxemic respiratory failure; Patient has tracheostomy on vent Continue nebulizers, , trach care Wean off ventilator as tolerated Pulmonary critical following --Acute exacerbation of COPD; Patient is currently on ventilatory support Continue nebulizers --Left lower lobe PE; Continue Eliquis, ventilatory support --Acute right lower extremity DVT; Patient is on Eliquis --Bilateral multifocal pneumonia/community-acquired Completed antibiotics, improved --Severe sepsis/bilateral pneumonia: Completed antibiotics COVID-19 test; 11/24/2019; negative 11/26/2019; negative 12/29/2019: Negative --Paroxysmal atrial fibrillation; Now rate controlled, Stable on amiodarone and Eliquis --Acute on chronic combined systolic and diastolic congestive heart failure Ischemic cardiomyopathy left ventricular ejection fraction 40 to 45% --H/o CAD [[facility] 12/2018 in-stent restenosis] Patient is stable on current cardiac medications --Hypertensive emergency; present on admission Reasonable blood pressures, continue current antihypertensives As needed medications --History of alcohol abuse/alcohol withdrawal; Was on CIWA protocol, now stable --Oropharyngeal dysphagia; status post PEG placement Continue PEG feeds per protocol --History of partial small bowel obstruction; resolved Surgery evaluated. --Obesity; BMI 34.7 Patient needs weight reduction when medically stable --Severe protein calorie malnutrition/hypoalbuminemia Nutrition supplements, dietitian following, PEG feeds --DVT prophylaxis;Eliquis --Full CODE STATUS 01/05; Pt stable. NGT output 650cc over 24 hours, bilious. No f/c, WBC within normal limits. cont NG suction and cont to hold TF 01/06: Abs series - mild improvement in small bowel distension in mid abdomen, normal gas/stool pattern in colon. NGT in duodenum. Continue to hold tube feeding, maintain NG tube with low intermittent suction. Patient's was updated by phone. Continue to provide supportive care and monitor clinically. 01/07: +BMs today and NGT/PEG output appears more gastric today. Plan to clamp NGT, if tolerates start TF from tomorrow. cont supportive care. 01/08; Gastric output decreased over last 24 hours. NGT has been clamped x 24 hours. plan to dc NGT and to start TTF via PEG - vital HF @10cc/hr 01/09: clinically stable, tolerating TF. monitor BMP, wean off from vent as tolerated clinically stable, on TF. wean off vent as tolerated 01/11: wean off from vent, cont to monitor, on TF 01/12: wean off from vent, cont to monitor, on TF. need placement - unfunded 01/13; remains on ventilatory support, unable to wean, DC planning possible LTAC, unfunded 01/14; patient of ventilatory support, T-piece tracheostomy on oxygen, LTAC placement per case management 01/16; tracheostomy, patient on full ventilatory support, wean off vent support as tolerated, pending LTAC placement, social financial issues 01/17; awaiting LTAC placement, insurance and financial issues 01/18; patient tracheostomy remains on ventilatory support 01/19; wean off ventilator as tolerated 01/20; remains on ventilatory support, patient complains of intermittent chest pain, cardiology recommend left heart catheterization tomorrow 01/22/2020. Patient for left heart catheterization per cardiology. Patient remains on AC mode ventilation rate 12, tidal volume 450, FiO2 30% and PEEP of 6. Continue tracheostomy care, airway management and secretion control. 01/23/2020. Cardiac catheterization completed yesterday revealed widely patent previous LAD stent with mild nonobstructive atherosclerosis of the right mid coronary artery and rest of the coronary system was without significant atherosclerosis. The left ventricle ejection fraction was mildly impaired at 40 to 45%. There was some hypokinesis of the basal inferior wall suggestive of previous or recent infarct. Continue GDMT for coronary artery disease including beta blockers, topical nitrates, statin and Plavix. Continue Eliquis for paroxysmal atrial fibrillation and PE. Continue diuresis with Lasix and follow electrolytes closely. Continue Robinul and scopolamine for secretion control and daily SBT per pulmonary. Also, continue bronchodilators and routine trach care/airway management. T-piece trials per pulmonary as tolerated. 01/24/2020. Recent cardiac catheterization has documented widely patent left anterior descending artery stent with minimal nonobstructive diffuse coronary artery disease in the rest of the coronary arteries. Evidence of ischemic cardiomyopathy with inferior wall hypokinesis. Continue with guideline directed medical therapy. Continue Robinul and scopolamine for secretion control and daily SBT per pulmonary. Continue bronchodilators and routine trach care/airway management. T-piece trials per pulmonary as tolerated. 01/25/2020. Continue with guideline directed medical therapy for systolic heart failure. Cardiac catheterization revealed evidence of ischemic cardiomyopathy with inferior wall hypokinesis (EF 40-45%). Patient currently on T-piece with oxygen 10 L/min FiO2 40%. Continue Robinul and scopolamine for secretion control. Continue bronchodilators and routine trach care/airway management. 02/03: Mental status more improved, agree with Reglan will change to IV scheduled for two days, no new vomiting. Pseudomonas A in Sputum. 02/04: Clinical improving, amiodarone discontinued due to LFTs, continue Metoprolol.d/w GI, started on Golytely to clear impaction. Started on dialy Miralax. 02/05: Continue supportive care. Noted bowel movement, continue bowel regimen 02/06: Cardiology input noted beta-hebert increased for better suppression of atrial fibrillation. Continue to monitor, no other evidence of nausea vomiting noted. Discussed with respiratory therapist will be continued on weaning protocol with pressure support today. 02/07: Patient successfully weaned off the ventilator, No new complaints, c ontinue monitoring, BM noted, Discussed with pulmonary, 02/08; tracheostomy on T-piece, patient is more alert and awake today 02/09; clinically no change, tracheostomy on vent 02/10; tracheostomy on vent, full CODE STATUS, poor prognosis, 02/11; clinically no change, remains on ventilatory support, full CODE STATUS, discussed with spouse Ms. Paulette Araiza extensively today 02/12. Patient resting comfortably no change on vent with tracheostomy. Still unable to wean. Some increased crackles today. 02/13: Still unable to wean from the vent. Overall prognosis remains extremely poor. 02/14; remains critically ill, tracheostomy on vent, unable to wean, poor prognosis, full CODE STATUS 02/15; patient is more alert and awake today, chronic tracheostomy on T-piece, continue current management DC planning per case management. Disposition very difficult due to lack of resources and insurance 02/17/2020. Patient remains on mechanical ventilation and tolerating PSV trials. Patient currently with PSV 10/6 at FiO2 of 30%. 02/18/2020. Patient currently on PSV 10/6 with FiO2 of 40%. 40% T-piece trial was attempted but patient unable to tolerate due to saturations dropping into the 80s and heart rate in the 140s. Therefore, patient placed back on PSV. Continue anticoagulation with Eliquis. Continue secretion control with Robinul and scopolamine. Continue rate control with metoprolol and digoxin. 02/19/2020. Patient currently on PSV 10/6 with FiO2 of 30%. T-piece trial attempted yesterday but patient did not tolerate. Continue T-piece trials as tolerated. Continue anticoagulation with Eliquis. Continue secretion control with Robinul and scopolamine. Continue rate control with metoprolol and digoxin. Continue to follow with case management with regards to discharge pl anning. 02/20/2020. Patient continues to tolerate PSV 10/6. Continue rate control with metoprolol and digoxin. Amiodarone discontinued due to elevated liver transaminases. Eliquis for anticoagulation acute PE/DVT The high probability of a clinically significant, sudden or life threatening de terioration of the [Respiratory, cardiovascular & neurological] system(s) required my full and dire ct attention, intervention and personal management. The aggregate critical care time was [31] minutes without overlap. Time includes spent on [x] Data Review and interpretation [x] Patient assessment and monitoring of vital signs [x] Documentation [x] Medication orders and management History Interval history: Patient is a 64-year-old male with known history of hypertension, COPD, history of coronary artery disease, CHF with ejection fraction of 20 to 25% 2019 was admitted through emergency room with worsening shortness of breath Patient was found to be hypoxic and in respiratory distress. Patient was placed on CPAP in route to the hospital. Patient remained hypoxic on CPAP BiPAP ,subsequently was intubated. Patient also had bilateral multifocal pneumonia managed appropriately with antibiotics sputum cultures positive for Pseudomonas, ID treated with cefepime and Vanco. His hospital course became complicated with acute PE, DVT, paroxysmal atrial fib - placed on chronic anticoagulation. Patient was difficult to wean off, status post trach and PEG, remains on mechanical ventilation with trach tube. He then developed partial small bowel obstruction evaluated by general surgeon symptom improved with medical Mx, patient was briefly weaned off ventilatory support however, was in respiratory failure requiring full ventilatory support. Cardiac catheterization on 01/22/2020. Patient remains on mechanical ventilatory support. Patients still with elevated heart rate of Afib with RVR continue amiodarone and metoprolol. LVEF 40 to 45% on Eliquis FOR THE Acute PE/DVT. Partial SBO vs ileus- KUB is negative. Will monitor, No further vomiting noted. If no improvement will repeat a chest xray to ensure no aspiration in the last 24 hrs. Hospitalist Physical - Constitutional Vitals: Temp Pulse Resp BP Pulse Ox 97.9 F 93 H 17 103/77 100 02/20/20 08:00 02/20/20 08:43 02/20/20 08:43 02/20/20 08:43 02/20/20 08:43 General appearance: Present: no acute distress, well-nourished, obese, other (Tracheostomy responds to simple questions appropriately) - EENT Eyes: Present: PERRL, EOM intact ENT: hearing intact, clear oral mucosa, dentition normal - Neck Neck: Present: supple, normal ROM - Respiratory Respiratory effort: normal Respiratory: bilateral: CTA - Cardiovascular Rhythm: regular Heart Sounds: Present: S1 & S2. Absent: gallop, rub - Extremities Extremities: no ischemia, No edema, Full ROM - Abdominal General gastrointestinal: soft, non-tender, non-distended, normal bowel sounds - Integumentary Integumentary: Present: clear, warm, dry - Neurologic Neurologic: CNII-XII intact, moves all extremities HEART Score - HEART Score Troponin: Troponin T < 0.010 ng/mL (0.00-0.029) 01/19/20 01:35 Results - Labs CBC & Chem 7: 02/20/20 00:24 02/20/20 00:24 Labs: Laboratory Last Values WBC 9.0 K/mm3 (4.5-11.0) 02/20/20 00:24 RBC 3.82 M/mm3 (3.65-5.03) 02/20/20 00:24 Hgb 9.4 gm/dl (11.8-15.2) L 02/20/20 00:24 Hct 30.0 % (35.5-45.6) L 02/20/20 00:24 MCV 79 fl (84-94) L 02/20/20 00:24 MCH 25 pg (28-32) L 02/20/20 00:24 MCHC 31 % (32-34) L 02/20/20 00:24 RDW 20.4 % (13.2-15.2) H 02/20/20 00:24 Plt Count 219 K/mm3 (140-440) 02/20/20 00:24 Lymph % (Auto) 23.5 % (13.4-35.0) 02/20/20 00:24 [place] % (Auto) 8.5 % (0.0-7.3) H 02/20/20 00:24 Eos % (Auto) 2.7 % (0.0-4.3) 02/20/20 00:24 Baso % (Auto) 0.7 % (0.0-1.8) 02/20/20 00:24 Lymph # (Auto) 2.1 K/mm3 (1.2-5.4) 02/20/20 00:24 [place] # (Auto) 0.8 K/mm3 (0.0-0.8) 02/20/20 00:24 Eos # (Auto) 0.2 K/mm3 (0.0-0.4) 02/20/20 00:24 Baso # (Auto) 0.1 K/mm3 (0.0-0.1) 02/20/20 00:24 Add Manual Diff Complete 02/15/20 06:59 Total Counted 100 02/15/20 06:59 Seg Neutrophils % 64.6 % (40.0-70.0) 02/20/20 00:24 Seg Neuts % (Manual) 58.0 % (40.0-70.0) 02/15/20 06:59 Band Neutrophils % 0 % 02/15/20 06:59 Lymphocytes % (Manual) 34.0 % (13.4-35.0) 02/15/20 06:59 Reactive Lymphs % (Man) 1.0 % 02/15/20 06:59 Monocytes % (Manual) 4.0 % (0.0-7.3) 02/15/20 06:59 Eosinophils % (Manual) 0 % (0.0-4.3) 02/15/20 06:59 Basophils % (Manual) 2.0 % (0.0-1.8) H 02/15/20 06:59 Metamyelocytes % 1.0 % 02/15/20 06:59 Myelocytes % 0 % 02/15/20 06:59 Promyelocytes % 0 % 02/15/20 06:59 Blast Cells % 0 % 02/15/20 06:59 Nucleated RBC % 1.0 % (0.0-0.9) H 02/15/20 06:59 Seg Neutrophils # 5.8 K/mm3 (1.8-7.7) 02/20/20 00:24 Seg Neutrophils # Man 5.9 K/mm3 (1.8-7.7) 02/15/20 06:59 Band Neutrophils # 0.0 K/mm3 02/15/20 06:59 Lymphocytes # (Manual) 3.5 K/mm3 (1.2-5.4) 02/15/20 06:59 Abs React Lymphs (Man) 0.1 K/mm3 02/15/20 06:59 Monocytes # (Manual) 0.4 K/mm3 (0.0-0.8) 02/15/20 06:59 Eosinophils # (Manual) 0.0 K/mm3 (0.0-0.4) 02/15/20 06:59 Basophils # (Manual) 0.2 K/mm3 (0.0-0.1) H 02/15/20 06:59 Metamyelocytes # 0.1 K/mm3 02/15/20 06:59 Myelocytes # 0.0 K/mm3 02/15/20 06:59 Promyelocytes # 0.0 K/mm3 02/15/20 06:59 Blast Cells # 0.0 K/mm3 02/15/20 06:59 WBC Morphology Not Reportable 02/15/20 06:59 Hypersegmented Neuts Not Reportable 02/15/20 06:59 Hyposegmented Neuts Not Reportable 02/15/20 06:59 Hypogranular Neuts Not Reportable 02/15/20 06:59 Smudge Cells Not Reportable 02/15/20 06:59 Toxic Granulation Not Reportable 02/15/20 06:59 Toxic Vacuolation Not Reportable 02/15/20 06:59 Dohle Bodies Not Reportable 02/15/20 06:59 Pelger-Huet Anomaly Not Reportable 02/15/20 06:59 Hector Rods Not Reportable 02/15/20 06:59 Platelet Estimate Consistent w auto 02/15/20 06:59 Clumped Platelets Not Reportable 02/15/20 06:59 Plt Clumps, EDTA Not Reportable 02/15/20 06:59 Large Platelets Not Reportable 02/15/20 06:59 Giant Platelets Not Reportable 02/15/20 06:59 Platelet Satelliting Not Reportable 02/15/20 06:59 Plt Morphology Comment Giant platelets 02/15/20 06:59 RBC Morphology Not Reportable 02/15/20 06:59 Dimorphic RBCs Not Reportable 02/15/20 06:59 Polychromasia Not Reportable 02/15/20 06:59 Hypochromasia 1+ 02/15/20 06:59 Poikilocytosis Few 02/15/20 06:59 Anisocytosis 1+ 02/15/20 06:59 Microcytosis Not Reportable 02/15/20 06:59 Macrocytosis Not Reportable 02/15/20 06:59 Spherocytes Not Reportable 02/15/20 06:59 Pappenheimer Bodies Not Reportable 02/15/20 06:59 Sickle Cells Not Reportable 02/15/20 06:59 Target Cells 1+ 02/15/20 06:59 Tear Drop Cells Few 02/15/20 06:59 Ovalocytes Not Reportable 02/15/20 06:59 Helmet Cells Not Reportable 02/15/20 06:59 Gottlieb-Accident Bodies Not Reportable 02/15/20 06:59 [place] Rings Not Reportable 02/15/20 06:59 Oc Cells Not Reportable 02/15/20 06:59 Bite Cells Not Reportable 02/15/20 06:59 Crenated Cell Not Reportable 02/15/20 06:59 Elliptocytes Few 02/15/20 06:59 Acanthocytes (Spur) Not Reportable 02/15/20 06:59 Rouleaux Not Reportable 02/15/20 06:59 Hemoglobin C Crystals Not Reportable 02/15/20 06:59 Schistocytes Not Reportable 02/15/20 06:59 Malaria parasites Not Reportable 02/15/20 06:59 Clifford Bodies Not Reportable 02/15/20 06:59 Hem Pathologist Commnt No 02/15/20 06:59 PT 27.0 Sec. (12.2-14.9) H 02/07/20 15:03 INR 2.46 (0.87-1.13) H 02/07/20 15:03 APTT 31.5 Sec. (24.2-36.6) 01/22/20 09:58 Heparin Anti-Xa Level 1.34 U.I./ml (0.3-0.7) H 01/22/20 04:45 ABG pH 7.502 (7.320-7.450) H 02/11/20 14:11 POC ABG pCO2 34.8 mmHg (32.0-48.0) 02/11/20 14:11 ABG pCO2 54.1 mm Hg 02/09/20 21:40 POC ABG pO2 77.7 mmHg (83-108) L 02/11/20 14:11 ABG pO2 59.8 mm Hg (80.0-90.0) L 02/09/20 21:40 POC ABG HCO3 26.7 02/11/20 14:11 ABG HCO3 33.3 mmol/L (20.0-26.0) H 02/09/20 21:40 ABG O2 Saturation 88.9 % (95.0-99.0) L 02/09/20 21:40 ABG O2 Content 12.7 (0.0-44) 02/09/20 21:40 POC ABG Base Excess 3.6 02/11/20 14:11 ABG Base Excess 7.4 mmol/L (-2.0-3.0) H 02/09/20 21:40 ABG Hemoglobin 11.1 (12.0-17.5) L 02/11/20 14:11 ABG Oxyhemoglobin 84 (94-98) L 12/22/19 03:22 ABG Carboxyhemoglobin 2.3 % (0.0-5.0) 02/09/20 21:40 ABG Methemoglobin 0.6 % (0.0-1.5) 02/09/20 21:40 ABG Sodium 144.7 mmol/L (136.0-145.0) 02/11/20 14:11 ABG Potassium 3.5 mmol/L (3.40-4.50) 02/11/20 14:11 ABG Chloride 108.0 mmol/L (98-107) H 02/11/20 14:11 ABG Glucose 151 mg/dL (65-95) H 02/11/20 14:11 Oxyhemoglobin 86.3 % (95.0-99.0) L 02/09/20 21:40 Carboxyhemoglobin 0.7 (0.5-1.5) 12/22/19 03:22 FiO2 30.0 02/11/20 14:11 Sodium 147 mmol/L (137-145) H 02/20/20 00:24 Potassium 3.4 mmol/L (3.6-5.0) L 02/20/20 00:24 Chloride 106.3 mmol/L (98-107) 02/20/20 00:24 Carbon Dioxide 31 mmol/L (22-30) H 02/20/20 00:24 Anion Gap 13 mmol/L 02/20/20 00:24 BUN 34 mg/dL (9-20) H 02/20/20 00:24 Creatinine 0.5 mg/dL (0.8-1.3) L 02/20/20 00:24 Estimated GFR > 60 ml/min 02/20/20 00:24 BUN/Creatinine Ratio 68 % 02/20/20 00:24 Glucose 135 mg/dL (75-100) H 02/20/20 00:24 POC Glucose 109 mg/dL (70-105) H 02/20/20 06:07 Lactic Acid 1.60 mmol/L (0.7-2.0) 02/03/20 12:49 Calcium 9.1 mg/dL (8.4-10.2) 02/20/20 00:24 Ferritin 84.4 ng/mL (30.0-300.0) 11/24/19 04:53 Phosphorus 4.10 mg/dL (2.5-4.5) 01/31/20 19:24 Magnesium 2.40 mg/dL (1.7-2.3) H 02/10/20 07:40 Total Bilirubin 1.30 mg/dL (0.1-1.2) H 02/08/20 19:00 Direct Bilirubin 0.9 mg/dL (0-0.2) H 02/08/20 19:00 Indirect Bilirubin 0.4 mg/dL 02/08/20 19:00 Total Creatine Kinase 141 units/L (55-170) 11/24/19 02:53 CK-MB (CK-2) 4.3 ng/mL (0.0-4.0) H 11/24/19 02:53 AST 309 units/L (5-40) H 02/08/20 19:00 ALT 650 units/L (7-56) H 02/08/20 19:00 CK-MB (CK-2) Rel Index 3.0 (0-4) 11/24/19 02:53 Alkaline Phosphatase 109 units/L (35-129) 02/08/20 19:00 C-Reactive Protein 8.50 mg/dL (0.00-1.30) H 12/01/19 12:16 Ammonia 35.0 umol/L (25-60) 02/03/20 12:49 Lactate Dehydrogenase 228 units/L (91-180) H 12/19/19 04:45 Troponin T < 0.010 ng/mL (0.00-0.029) 01/19/20 01:35 NT-Pro-B Natriuret Pep 3866 pg/mL (0-900) H 01/01/20 10:40 Total Protein 6.2 g/dL (6.3-8.2) L 02/08/20 19:00 Albumin 2.7 g/dL (3.9-5) L 02/08/20 19:00 Albumin/Globulin Ratio 0.8 % 02/08/20 19:00 Procalcitonin 0.44 ng/mL (<0.15) 02/03/20 12:49 Arterial Blood Glucose 151 mg/dL (65-95) H 02/11/20 14:11 Arterial Blood Ionized Calcium 4.7 mg/dL (4.6-5.3) 02/11/20 14:11 Urine Color Cecy (Yellow) 12/31/19 18:04 Urine Turbidity Clear (Clear) 12/31/19 18:04 Urine pH 5.0 (5.0-7.0) 12/31/19 18:04 Ur Specific [place] 1.023 (1.003-1.030) 12/31/19 18:04 Urine Protein <15 mg/dl mg/dL (Negative) 12/31/19 18:04 Urine Glucose (UA) Neg mg/dL (Negative) 12/31/19 18:04 Urine Ketones Neg mg/dL (Negative) 12/31/19 18:04 Urine Blood Neg (Negative) 12/31/19 18:04 Urine Bacteria (Auto) 1+ /HPF (Negative) 12/03/19 06:03 Urine Nitrite Neg (Negative) 12/31/19 18:04 Urine Bilirubin Neg (Negative) 12/31/19 18:04 Urine Urobilinogen 4.0 mg/dL (<2.0) 12/31/19 18:04 Ur Leukocyte Esterase Neg (Negative) 12/31/19 18:04 Urine WBC (Auto) 2.0 /HPF (0.0-6.0) 12/31/19 18:04 Urine RBC (Auto) 3.0 /HPF (0.0-6.0) 12/31/19 18:04 U Epithel Cells (Auto) 2.0 /HPF (0-13.0) 12/31/19 18:04 Urine Mucus 1+ /HPF 12/31/19 18:04 Urine Creatinine 57.4 mg/dL (0.1-20.0) H 01/31/20 Unknown Urine Sodium 59 mmol/L 01/31/20 Unknown Vancomycin Trough 14.2 ug/mL (5.0-20.0) 12/13/19 15:01 Coronavirus (PCR) Negative (Negative) 12/29/19 10:07 Hepatitis A IgM Ab Non-reactive (NonReactive) 02/05/20 06:37 Hep Bs Antigen Non-reactive (Negative) 02/05/20 06:37 Hep B Core IgM Ab Non-reactive (NonReactive) 02/05/20 06:37 Hepatitis C Antibody Non-reactive (NonReactive) 02/05/20 06:37 Blood Type O POSITIVE 01/21/20 13:00 Antibody Screen Negative 01/21/20 13:00 - Diagnostic Impressions Diagnostic Impressions: Echocardiogram 11/29/19 07:37 Transthoracic Echocardiogram Indication: CHF BP: 116/72 HR: 33 Conclusions *The study is technically limited due to poor acoustic windows. *Global left ventricular systolic function is normal. *The estimated ejection fraction is 50-55%. *Mild concentric left ventricular hypertrophy is observed. *There is trace of mitral regurgitation. *There is mild tricuspid regurgitation. Findings Procedure Info: The study quality is poor. The study is technically limited due to poor acoustic windows. The study is technically limited due to patient body habitus. Left Ventricle: The left ventricular chamber size is normal. Mild concentric left ventricular hypertrophy is observed. Global left ventricular systolic function is normal. The estimated ejection fraction is 50-55%. Left Atrium: The left atrial chamber size is normal. Right Ventricle: The right ventricular cavity size is normal. Right Atrium: The right atrial cavity size is normal. Aortic Valve: The aortic valve leaflets are moderately thickened. There is trace of aortic regurgitation. There is no evidence of aortic stenosis. Mitral Valve: The mitral valve leaflets are mildly thickened. There is trace of mitral regurgitation. There is no evidence of mitral stenosis. Tricuspid Valve: There is mild tricuspid regurgitation. No pulmonary hypertension is noted. Pulmonic Valve: There is trace pulmonic regurgitation. Pericardium: There is no pericardial effusion. Aorta: There is no dilatation of the aortic root. Venous: The inferior vena cava appears normal in size. Contrast: Definity was used to optimize study. Intravenous contrast was used to enhance endocardial border definition. Measurements Chambers 2D Name Value Normal Range Ao root diameter (2D) 3.4 cm (2 - 3.7) Aortic Valve Name Value Normal Range AV Vmax 0.98 m/sec - AV VTI 16.76 cm - AV peak gradient 3.83 mmHg - AV mean gradient 2.57 mmHg - LVOT diameter 3.11 cm - LVOT Vmax 0.68 m/sec - LVOT VTI 11.52 cm - LVOT peak gradient 1.84 mmHg - LVOT mean gradient 1.27 mmHg - SV LVOT 87.31 ml - MALOU (continuity Vmax) 5.24 cm2 - MALOU (continuity VTI) 5.21 cm2 - Tricuspid Valve Name Value Normal Range IVC diameter 2.24 cm (1.2 - 2.3) Hoffman/IV: Voiding Method Indwelling Catheter IV Catheter Type [Right INT / Saline Lock Forearm] IV Catheter Type [Right Hand] Peripheral IV IV Catheter Type [Right Upper INT / Saline Lock arm] IV Catheter Type [Left Upper Mid-line arm] IV Catheter Type [Left Forearm INT / Saline Lock ] IV Catheter Type [Left Hand] Peripheral IV IV Catheter Type [Left Wrist] INT / Saline Lock IV Catheter Type [Right Peripheral IV Antecubital] Active Medications - Current Medications Current Medications: Generic Name Dose Route Start Last Admin Trade Name Freq PRN Reason Stop Dose Admin Acetaminophen 650 mg 12/31/19 11:43 02/19/20 17:01 Tylenol FEEDTUBE 650 mg Q6H PRN Administration Pain, Mild (1-3) Lipase/Protease/Amylase 1 each 01/09/20 12:01 Nadir Betancourt 10,500 Unit FEEDTUBE PRN PRN For Clogged Feeding Tube Apixaban 5 mg 01/22/20 22:00 02/20/20 09:16 Eliquis PO 5 mg Q12HR CAR Administration Protocol Atorvastatin Calcium 40 mg 01/20/20 22:00 02/19/20 21:42 Lipitor PO 40 mg QHS CAR Administration Clopidogrel Bisulfate 75 mg 01/21/20 06:00 02/20/20 09:16 Plavix PO 75 mg QDAY CAR Administration Dextrose 50 ml 01/31/20 18:51 02/05/20 00:56 D50w (25gm) Syringe IV 50 ml Q30MIN PRN Administration Hypoglycemia Protocol Digoxin 0.125 mg 02/10/20 17:00 02/19/20 16:52 Lanoxin IV 0.125 mg DAILY@1700 CAR Administration Glycopyrrolate 2 mg 01/26/20 20:00 02/20/20 09:16 Glycopyrrolate PO 2 mg TID CAR Administration Haloperidol Lactate 5 mg 02/10/20 14:20 02/17/20 04:49 Haldol IV 5 mg Q6H PRN Administration Agitation Hydrophilic Ointment 1 applic 01/17/20 15:26 Vaseline Lip Therapy TP DIRECT PRN Dry Lips Insulin Human Regular 0 unit 02/01/20 18:00 02/20/20 09:07 Humulin R SUB-Q Not Given Q6H [facility] Protocol Lansoprazole 30 mg 02/05/20 16:00 02/20/20 09:16 Prevacid Solutab FEEDTUBE 30 mg QDAY CAR Administration Metoprolol Tartrate 5 mg 01/11/20 08:00 02/16/20 22:00 Metoprolol IV 5 mg Q6H PRN Administration SEE INSTRUCTIONS Midodrine 15 mg 02/04/20 16:00 02/20/20 09:16 Proamatine PO 15 mg TID@0800,1200,1600 CAR Administration Morphine Sulfate 2 mg 01/06/20 15:41 02/20/20 00:43 Morphine IV 2 mg Q4H PRN Administration Pain, Moderate (4-6) Multi-Ingred Cream/Lotion/Oil/Oint 1 applic 02/01/20 15:52 Artificial Tears Ophth Oint OU Q4HR PRN Dry Eye(s) Nitroglycerin 0.4 mg 01/19/20 21:09 01/20/20 03:03 Nitrostat SL 0.4 mg .Q5MIN PRN Administration Chest Pain Ondansetron HCl 4 mg 01/05/20 14:37 02/16/20 17:25 Zofran IV 4 mg Q8H PRN Administration Nausea And Vomiting Polyethylene Glycol 17 gm 12/04/19 22:00 02/19/20 21:42 Miralax 3350 PO Not Given QHS CAR Quetiapine Fumarate 300 mg 01/13/20 22:00 02/20/20 09:16 Seroquel PO 300 mg BID CAR Administration Scopolamine 1 each 01/07/20 20:00 01/07/20 21:08 Transderm-Scop TD 1 each Q72HR CAR Administration Simple Syrup 15 ml 01/09/20 12:01 Simple Syrup FEEDTUBE PRN PRN Hypoglycemia Simple Syrup 30 ml 01/09/20 12:01 Simple Syrup FEEDTUBE PRN PRN Hypoglycemia Sodium Bicarbonate 325 mg 01/09/20 12:01 Sodium Bicarbonate FEEDTUBE PRN PRN For Clogged Feeding Tube Sodium Chloride 10 ml 11/24/19 10:00 02/20/20 09:16 Sodium Chloride Flush Syringe 10 Ml IV 10 ml BID CAR Administration Tamsulosin HCl 0.8 mg 12/20/19 22:00 02/19/20 21:42 Flomax PO 0.8 mg QHS CAR Administration Nutrition/Malnutrition Assess - Dietary Evaluation Nutrition/Malnutrition Findings: Nutrition Notes Start: 11/24/19 12:22 Freq: Status: Active Protocol: Document 02/19/20 09:28 LP (Rec: 02/19/20 09:30 LP [id number]) Nutrition Notes Initial or Follow up Reassessment Current Diagnosis Coronary Artery Disease,Heart Failure,Respiratory Failure, Stroke,Hyperlipidemia Other Pertinent Diagnosis Partial SBO, pneu Current Diet Vital AF 1.2 at 75ml/hr Labs/Tests Na 145 02/16/20 Pertinent Medications Reviewed Height 6 ft 2 in Weight 115.9 kg [place] Body Weight (kg) 86.36 BMI 32.8 Weight change and time frame Wt change noted. Weight Status Obese Subjective/Other Information Pt continues tolerating TF at goal. Na now WNL. Percent of energy/protein needs met: 99%/100% Burn Absent Trauma Absent GI Symptoms None Current % PO Negligible Minimum of two criteria Yes Muscle Mass Mild Depletion (non-severe) Fluid Accumulation Mild (non-severe) Reduced [employer] Strength Measurably Reduced (severe) #2 Nutrition Diagnosis Malnutrition Diagnosis Progress(for reassessment Continues documentation) #1 Nutrition Diagnosis Inadequate oral intake Diagnosis Progress(for reassessment Continues documentation) Is patient on ventilator? Yes Is Patient Ambulatory and/or Out of Bed No REE-([place] Jeor-confined to bed) 2433.156 Kcal/Kg value to use for calculation 20 Approximate Energy Requirements Using 2318 kcal/Kg Calculation Used for Recommendations Kcal/kg Additional Notes Protein needs are 117-147g (1. 2-1.5 g/kg AdBW of 97.78kg) Fluid needs are 1.5L Nutrition Intervention Change Diet Order: Continue TF via PEG Nutrition Support: Vital AF 1.2 at 75ml/hr. increase Flush 250ml q4h for hypernatremia Flush 100ml q4h once hypernatremia is resolved Kcal 2,160 Protein (gm) 135 Fluid (mL) 1,460 Goal #1 Meet at least 75% of pt's energy and protein needs Goal #2 Weight maintenance Anticipated Discharge Needs: unable to determine at this time Follow-Up By: 02/26/20 Additional Comments Follow for stable TF
--- NOTE | 2020-02-20 12:27 | Progress Note ---
Assessment and Plan Acute hypoxemic respiratory failure Bilateral pneumonia, community acquired. Acute LLL branch P.E. Acute DVT Person under investigation for COVID-19 infection. Acute congestive heart failure exacerbation. History of cerebrovascular accident. Acute chronic obstructive pulmonary disease exacerbation. Hypertension and hypertensive urgency at presentation. History of arthritis. Leukocytosis. Lactic acidosis. Oropharyngeal dysphagia -continue daily SATs and SBT assessment as tolerated -intermittent diuresis while monitoring renal function and hemodynamics -continue prn haldol for agitation to avoid hypoventilation -Get KUB and address -Hold tube feedings, anti-emetics with bowel regimen - continue Flomax - Midodrine for blood pressure - prn mucomyst nebs re: secretions - continue full anticoagulation with Apixaban - continue Seroquel for anxiolysis / delirium - continue to wean oxygen for O2 sats > 92% - continue bronchodilators with routine trach care and pulmonary hygiene per RT - continue Robinul & Scopolamine for secretion control - VAP bundle addressed (Aspiration precautions, HOB >40) - continue to wean per pulmonary driven protocols - continue prn analgesia per CPOT score - Avoid delirium (no benzodiazepines if they can be avoided) - Maintain sleep-wake cycle - continue accuchecks with glycemic control per SSI for target blood glucose goal of 140-180 mg/dL while critically ill; Avoid hypoglycemia - continue stress ulcer prophylaxis with Famotidine - continue mobility protocols for pressure ulcer prevention - continue fall precautions - continue wound care management per RN / WCT - Supportive transfusions to keep HgB>7g/dL - Continue to monitor neurologic function - Continue all supportive care ........ re-evaluate in am & prn CONDITION: CRITICAL PROGNOSIS: GUARDED CODE STATUS: FULL CODE Subjective Date of service: 02/20/20 Principal diagnosis: Ac hypoxemic resp failure; Pneumonia; PUI COVID-19; CHF; COPD; HTN Interval history: Patient is seen today for: Acute hypoxemic respiratory failure; [place]. Pneumonia (CAP); PUI COVID-19 infection; AE-CHF; AE-COPD; H/O CVA; HTN; PE, DVT Seen and examined at bedside; 24 hour events reviewed; nursing and respiratory care staff consulted; no adverse overnight events reported to me; resting peacefully in bed; s/p trach on full support, awake and alert ,vomited once this morning , KUB ordered Vent PSV 10/6 Size#6 [place], Mouths words to make needs known, is interactive No fevers, states he can't catch his breath Objective Vital Signs - 12hr 02/20/20 02/20/20 02/20/20 00:30 00:34 00:35 Temperature Pulse Rate 83 89 Pulse Rate [ 89 From Monitor] Respiratory 17 24 Rate Blood Pressure 101/68 O2 Sat by Pulse 98 99 Oximetry O2 Sat by Pulse Oximetry [ Assessment] 02/20/20 02/20/20 02/20/20 01:00 01:30 02:00 Temperature Pulse Rate 118 H 94 H 100 H Pulse Rate [ From Monitor] Respiratory 18 17 14 Rate Blood Pressure 99/77 113/78 120/86 O2 Sat by Pulse 98 100 98 Oximetry O2 Sat by Pulse Oximetry [ Assessment] 02/20/20 02/20/20 02/20/20 02:30 03:00 03:30 Temperature Pulse Rate 90 96 H 100 H Pulse Rate [ From Monitor] Respiratory 18 12 19 Rate Blood Pressure 103/79 113/82 118/79 O2 Sat by Pulse 97 97 96 Oximetry O2 Sat by Pulse Oximetry [ Assessment] 02/20/20 02/20/20 02/20/20 03:40 03:43 04:00 Temperature 98.8 F Pulse Rate 89 103 H Pulse Rate [ From Monitor] Respiratory 15 Rate Blood Pressure 118/79 103/74 O2 Sat by Pulse 98 92 Oximetry O2 Sat by Pulse 98 Oximetry [ Assessment] 02/20/20 02/20/20 02/20/20 04:30 05:00 05:14 Temperature Pulse Rate 92 H 88 Pulse Rate [ 89 From Monitor] Respiratory 11 L 14 24 Rate Blood Pressure 97/70 106/76 O2 Sat by Pulse 96 97 99 Oximetry O2 Sat by Pulse Oximetry [ Assessment] 02/20/20 02/20/20 02/20/20 05:30 06:00 06:30 Temperature Pulse Rate 100 H 86 84 Pulse Rate [ From Monitor] Respiratory 14 18 15 Rate Blood Pressure 104/75 105/75 113/72 O2 Sat by Pulse 97 98 97 Oximetry O2 Sat by Pulse Oximetry [ Assessment] 02/20/20 02/20/20 02/20/20 07:00 07:30 08:00 Temperature 97.9 F Pulse Rate 88 92 H 95 H Pulse Rate [ 95 H From Monitor] Respiratory 19 27 H 22 Rate Blood Pressure 113/72 113/82 113/82 O2 Sat by Pulse 97 99 98 Oximetry O2 Sat by Pulse Oximetry [ Assessment] 02/20/20 02/20/20 02/20/20 08:30 08:36 08:43 Temperature Pulse Rate 94 H 91 H 93 H Pulse Rate [ From Monitor] Respiratory 17 17 Rate Blood Pressure 103/77 103/77 103/77 O2 Sat by Pulse 97 98 100 Oximetry O2 Sat by Pulse Oximetry [ Assessment] 02/20/20 02/20/20 02/20/20 09:00 09:30 09:35 Temperature Pulse Rate 105 H 104 H Pulse Rate [ From Monitor] Respiratory 14 16 Rate Blood Pressure 103/77 113/79 O2 Sat by Pulse 97 96 Oximetry O2 Sat by Pulse 96 Oximetry [ Assessment] 02/20/20 02/20/20 02/20/20 10:00 10:30 11:00 Temperature Pulse Rate 89 99 H 87 Pulse Rate [ From Monitor] Respiratory 21 21 14 Rate Blood Pressure 112/76 96/72 91/70 O2 Sat by Pulse 95 99 Oximetry O2 Sat by Pulse Oximetry [ Assessment] Constitutional: alert, other (elelelderly and obese male, normocephalic with mildly increased respiratory effort at rest) Eyes: non-icteric ENT: oropharynx moist, other (+ midline tracheostomy) Neck: supple, no JVD Effort: mildly labored Ascultation: Bilateral: clear, diminished breath sounds, rhonchi, other (tracheal secretions ) Percussion: Bilateral: not dull Cardiovascular: irregular rhythm Gastrointestinal: normoactive bowel sounds, soft, non-tender, non-distended (protuberant), other (protuberant; PEG in place) Integumentary: normal Extremities: no cyanosis, pulses normal, no ischemia or petechiae, edema (bilateral lower) Neurologic: non-focal exam (moves extremities), pupils equal and round, other (intermittent agitation) Psychiatric: anxious CBC and BMP: 03/09/20 06:32 03/09/20 06:32 ABG, PT/INR, D-dimer: ABG ABG pH 7.502 (7.320-7.450) H 02/11/20 14:11 POC ABG pCO2 34.8 mmHg (32.0-48.0) 02/11/20 14:11 ABG pCO2 54.1 mm Hg 02/09/20 21:40 POC ABG pO2 77.7 mmHg (83-108) L 02/11/20 14:11 ABG pO2 59.8 mm Hg (80.0-90.0) L 02/09/20 21:40 POC ABG HCO3 26.7 02/11/20 14:11 ABG O2 Saturation 88.9 % (95.0-99.0) L 02/09/20 21:40 PT/INR, D-dimer PT 27.0 Sec. (12.2-14.9) H 02/07/20 15:03 INR 2.46 (0.87-1.13) H 02/07/20 15:03 Abnormal lab findings: Abnormal Labs 11/24/19 11/24/19 11/24/19 02:53 02:53 03:45 WBC 14.3 H RBC Hgb Hct MCHC RDW 17.2 H MCV MCH Lymph % (Auto) [place] % (Auto) [place] # Eos # Lymph # (Auto) [place] # (Auto) Eos # (Auto) Seg Neutrophils % Seg Neuts % (Manual) Baso # (Auto) Lymphocytes % (Manual) Monocytes % (Manual) Eosinophils % (Manual) Basophils % (Manual) Seg Neutrophils # Seg Neutrophils # Man 8.3 H Lymphocytes # (Manual) Monocytes # (Manual) 0.9 H Eosinophils # (Manual) Nucleated RBC % Basophils # (Manual) PT INR APTT Heparin Anti-Xa Level ABG pH 7.313 L POC ABG pO2 ABG pO2 102.8 H ABG HCO3 ABG O2 Saturation ABG Base Excess -2.9 L POC ABG pCO2 ABG Hemoglobin ABG Oxyhemoglobin ABG Chloride ABG Glucose Oxyhemoglobin 93.9 L Sodium Potassium Chloride Carbon Dioxide BUN Creatinine Glucose 195 H POC Glucose Lactic Acid Calcium Phosphorus Magnesium AST ALT Lactate Dehydrogenase Total Bilirubin Direct Bilirubin CK-MB (CK-2) 4.3 H C-Reactive Protein NT-Pro-B Natriuret Pep 1181 H Total Protein Albumin Arterial Blood Glucose Urine WBC (Auto) Urine Creatinine 11/24/19 11/24/19 11/24/19 04:53 04:53 10:37 WBC RBC Hgb Hct MCHC RDW MCV MCH Lymph % (Auto) [place] % (Auto) [place] # Eos # Lymph # (Auto) [place] # (Auto) Eos # (Auto) Seg Neutrophils % Seg Neuts % (Manual) Baso # (Auto) Lymphocytes % (Manual) Monocytes % (Manual) Eosinophils % (Manual) Basophils % (Manual) Seg Neutrophils # Seg Neutrophils # Man Lymphocytes # (Manual) Monocytes # (Manual) Eosinophils # (Manual) Nucleated RBC % Basophils # (Manual) PT INR APTT Heparin Anti-Xa Level ABG pH POC ABG pO2 ABG pO2 ABG HCO3 ABG O2 Saturation ABG Base Excess POC ABG pCO2 ABG Hemoglobin ABG Oxyhemoglobin ABG Chloride ABG Glucose Oxyhemoglobin Sodium Potassium Chloride Carbon Dioxide BUN Creatinine Glucose 162 H POC Glucose Lactic Acid 2.40 H* 2.50 H* Calcium Phosphorus Magnesium AST ALT Lactate Dehydrogenase 240 H Total Bilirubin Direct Bilirubin CK-MB (CK-2) C-Reactive Protein NT-Pro-B Natriuret Pep Total Protein Albumin Arterial Blood Glucose Urine WBC (Auto) Urine Creatinine 11/24/19 11/24/19 11/24/19 12:21 14:50 19:54 WBC RBC Hgb Hct MCHC RDW MCV MCH Lymph % (Auto) [place] % (Auto) [place] # Eos # Lymph # (Auto) [place] # (Auto) Eos # (Auto) Seg Neutrophils % Seg Neuts % (Manual) Baso # (Auto) Lymphocytes % (Manual) Monocytes % (Manual) Eosinophils % (Manual) Basophils % (Manual) Seg Neutrophils # Seg Neutrophils # Man Lymphocytes # (Manual) Monocytes # (Manual) Eosinophils # (Manual) Nucleated RBC % Basophils # (Manual) PT INR APTT Heparin Anti-Xa Level ABG pH POC ABG pO2 ABG pO2 ABG HCO3 ABG O2 Saturation ABG Base Excess POC ABG pCO2 ABG Hemoglobin ABG Oxyhemoglobin ABG Chloride ABG Glucose Oxyhemoglobin Sodium Potassium Chloride Carbon Dioxide BUN Creatinine Glucose POC Glucose 145 H 143 H 124 H Lactic Acid Calcium Phosphorus Magnesium AST ALT Lactate Dehydrogenase Total Bilirubin Direct Bilirubin CK-MB (CK-2) C-Reactive Protein NT-Pro-B Natriuret Pep Total Protein Albumin Arterial Blood Glucose Urine WBC (Auto) Urine Creatinine 11/25/19 11/25/19 11/25/19 00:18 03:18 05:11 WBC 13.7 H RBC Hgb Hct MCHC RDW 17.1 H MCV MCH Lymph % (Auto) 10.8 L [place] % (Auto) 8.7 H [place] # 1.2 H Eos # Lymph # (Auto) [place] # (Auto) Eos # (Auto) Seg Neutrophils % 80.2 H Seg Neuts % (Manual) Baso # (Auto) Lymphocytes % (Manual) Monocytes % (Manual) Eosinophils % (Manual) Basophils % (Manual) Seg Neutrophils # 11.0 H Seg Neutrophils # Man Lymphocytes # (Manual) Monocytes # (Manual) Eosinophils # (Manual) Nucleated RBC % Basophils # (Manual) PT INR APTT Heparin Anti-Xa Level ABG pH 7.333 L POC ABG pO2 ABG pO2 61.2 L ABG HCO3 ABG O2 Saturation 90.2 L ABG Base Excess POC ABG pCO2 ABG Hemoglobin 13.7 L ABG Oxyhemoglobin ABG Chloride ABG Glucose Oxyhemoglobin 88.2 L Sodium Potassium Chloride Carbon Dioxide BUN Creatinine Glucose POC Glucose 109 H Lactic Acid Calcium Phosphorus Magnesium AST ALT Lactate Dehydrogenase Total Bilirubin Direct Bilirubin CK-MB (CK-2) C-Reactive Protein NT-Pro-B Natriuret Pep Total Protein Albumin Arterial Blood Glucose Urine WBC (Auto) Urine Creatinine 11/25/19 11/25/19 11/26/19 05:11 11:40 03:12 WBC RBC Hgb Hct MCHC RDW MCV MCH Lymph % (Auto) [place] % (Auto) [place] # Eos # Lymph # (Auto) [place] # (Auto) Eos # (Auto) Seg Neutrophils % Seg Neuts % (Manual) Baso # (Auto) Lymphocytes % (Manual) Monocytes % (Manual) Eosinophils % (Manual) Basophils % (Manual) Seg Neutrophils # Seg Neutrophils # Man Lymphocytes # (Manual) Monocytes # (Manual) Eosinophils # (Manual) Nucleated RBC % Basophils # (Manual) PT INR APTT Heparin Anti-Xa Level ABG pH POC ABG pO2 ABG pO2 155.1 H ABG HCO3 27.8 H ABG O2 Saturation ABG Base Excess POC ABG pCO2 ABG Hemoglobin 12.2 L ABG Oxyhemoglobin ABG Chloride ABG Glucose Oxyhemoglobin Sodium Potassium Chloride Carbon Dioxide BUN 23 H Creatinine Glucose 110 H POC Glucose 108 H Lactic Acid Calcium Phosphorus Magnesium AST ALT Lactate Dehydrogenase Total Bilirubin Direct Bilirubin CK-MB (CK-2) C-Reactive Protein NT-Pro-B Natriuret Pep Total Protein Albumin Arterial Blood Glucose Urine WBC (Auto) Urine Creatinine 11/26/19 11/26/19 11/26/19 06:17 10:43 10:43 WBC 11.4 H RBC Hgb Hct MCHC RDW 17.1 H MCV MCH Lymph % (Auto) [place] % (Auto) [place] # Eos # Lymph # (Auto) [place] # (Auto) Eos # (Auto) Seg Neutrophils % Seg Neuts % (Manual) Baso # (Auto) Lymphocytes % (Manual) Monocytes % (Manual) Eosinophils % (Manual) Basophils % (Manual) Seg Neutrophils # Seg Neutrophils # Man Lymphocytes # (Manual) Monocytes # (Manual) Eosinophils # (Manual) Nucleated RBC % Basophils # (Manual) PT INR APTT Heparin Anti-Xa Level ABG pH POC ABG pO2 ABG pO2 ABG HCO3 ABG O2 Saturation ABG Base Excess POC ABG pCO2 ABG Hemoglobin ABG Oxyhemoglobin ABG Chloride ABG Glucose Oxyhemoglobin Sodium Potassium Chloride Carbon Dioxide BUN 29 H Creatinine Glucose POC Glucose 107 H Lactic Acid Calcium Phosphorus Magnesium AST ALT Lactate Dehydrogenase Total Bilirubin Direct Bilirubin CK-MB (CK-2) C-Reactive Protein NT-Pro-B Natriuret Pep Total Protein Albumin Arterial Blood Glucose Urine WBC (Auto) Urine Creatinine 11/26/19 11/27/19 11/27/19 17:11 01:53 04:11 WBC RBC Hgb Hct MCHC RDW MCV MCH Lymph % (Auto) [place] % (Auto) [place] # Eos # Lymph # (Auto) [place] # (Auto) Eos # (Auto) Seg Neutrophils % Seg Neuts % (Manual) Baso # (Auto) Lymphocytes % (Manual) Monocytes % (Manual) Eosinophils % (Manual) Basophils % (Manual) Seg Neutrophils # Seg Neutrophils # Man Lymphocytes # (Manual) Monocytes # (Manual) Eosinophils # (Manual) Nucleated RBC % Basophils # (Manual) PT INR APTT Heparin Anti-Xa Level ABG pH POC ABG pO2 ABG pO2 ABG HCO3 29.2 H ABG O2 Saturation ABG Base Excess 3.4 H POC ABG pCO2 ABG Hemoglobin 13.3 L ABG Oxyhemoglobin ABG Chloride ABG Glucose Oxyhemoglobin 94.5 L Sodium Potassium Chloride Carbon Dioxide BUN Creatinine Glucose POC Glucose 113 H 108 H Lactic Acid Calcium Phosphorus Magnesium AST ALT Lactate Dehydrogenase Total Bilirubin Direct Bilirubin CK-MB (CK-2) C-Reactive Protein NT-Pro-B Natriuret Pep Total Protein Albumin Arterial Blood Glucose Urine WBC (Auto) Urine Creatinine 11/27/19 11/28/19 11/28/19 05:27 05:00 05:25 WBC RBC Hgb Hct MCHC RDW MCV MCH Lymph % (Auto) [place] % (Auto) [place] # Eos # Lymph # (Auto) [place] # (Auto) Eos # (Auto) Seg Neutrophils % Seg Neuts % (Manual) Baso # (Auto) Lymphocytes % (Manual) Monocytes % (Manual) Eosinophils % (Manual) Basophils % (Manual) Seg Neutrophils # Seg Neutrophils # Man Lymphocytes # (Manual) Monocytes # (Manual) Eosinophils # (Manual) Nucleated RBC % Basophils # (Manual) PT INR APTT Heparin Anti-Xa Level ABG pH POC ABG pO2 68.1 L ABG pO2 ABG HCO3 ABG O2 Saturation ABG Base Excess POC ABG pCO2 ABG Hemoglobin ABG Oxyhemoglobin 91.2 L ABG Chloride ABG Glucose Oxyhemoglobin Sodium Potassium Chloride Carbon Dioxide BUN Creatinine Glucose POC Glucose 111 H 110 H Lactic Acid Calcium Phosphorus Magnesium AST ALT Lactate Dehydrogenase Total Bilirubin Direct Bilirubin CK-MB (CK-2) C-Reactive Protein NT-Pro-B Natriuret Pep Total Protein Albumin Arterial Blood Glucose Urine WBC (Auto) Urine Creatinine 11/28/19 11/28/19 11/28/19 12:08 13:47 13:47 WBC 11.3 H RBC Hgb Hct MCHC RDW 16.1 H MCV MCH Lymph % (Auto) [place] % (Auto) 9.9 H [place] # 1.1 H Eos # Lymph # (Auto) [place] # (Auto) Eos # (Auto) Seg Neutrophils % 71.4 H Seg Neuts % (Manual) Baso # (Auto) Lymphocytes % (Manual) Monocytes % (Manual) Eosinophils % (Manual) Basophils % (Manual) Seg Neutrophils # 8.1 H Seg Neutrophils # Man Lymphocytes # (Manual) Monocytes # (Manual) Eosinophils # (Manual) Nucleated RBC % Basophils # (Manual) PT INR APTT Heparin Anti-Xa Level ABG pH POC ABG pO2 ABG pO2 ABG HCO3 ABG O2 Saturation ABG Base Excess POC ABG pCO2 ABG Hemoglobin ABG Oxyhemoglobin ABG Chloride ABG Glucose Oxyhemoglobin Sodium Potassium Chloride Carbon Dioxide BUN 23 H Creatinine Glucose 123 H POC Glucose 112 H Lactic Acid Calcium Phosphorus Magnesium AST ALT Lactate Dehydrogenase Total Bilirubin Direct Bilirubin CK-MB (CK-2) C-Reactive Protein NT-Pro-B Natriuret Pep Total Protein Albumin 3.7 L Arterial Blood Glucose Urine WBC (Auto) Urine Creatinine 11/28/19 11/29/19 11/29/19 17:26 03:55 17:04 WBC RBC Hgb Hct MCHC RDW MCV MCH Lymph % (Auto) [place] % (Auto) [place] # Eos # Lymph # (Auto) [place] # (Auto) Eos # (Auto) Seg Neutrophils % Seg Neuts % (Manual) Baso # (Auto) Lymphocytes % (Manual) Monocytes % (Manual) Eosinophils % (Manual) Basophils % (Manual) Seg Neutrophils # Seg Neutrophils # Man Lymphocytes # (Manual) Monocytes # (Manual) Eosinophils # (Manual) Nucleated RBC % Basophils # (Manual) PT INR APTT Heparin Anti-Xa Level ABG pH POC ABG pO2 ABG pO2 65.7 L ABG HCO3 28.3 H ABG O2 Saturation 93.9 L ABG Base Excess 3.6 H POC ABG pCO2 ABG Hemoglobin 13.3 L ABG Oxyhemoglobin ABG Chloride ABG Glucose Oxyhemoglobin 91.5 L Sodium Potassium Chloride Carbon Dioxide BUN Creatinine Glucose POC Glucose 123 H 119 H Lactic Acid Calcium Phosphorus Magnesium AST ALT Lactate Dehydrogenase Total Bilirubin Direct Bilirubin CK-MB (CK-2) C-Reactive Protein NT-Pro-B Natriuret Pep Total Protein Albumin Arterial Blood Glucose Urine WBC (Auto) Urine Creatinine 11/30/19 11/30/19 11/30/19 04:17 04:17 04:56 WBC 13.4 H RBC Hgb Hct MCHC RDW 15.6 H MCV MCH Lymph % (Auto) [place] % (Auto) [place] # Eos # Lymph # (Auto) [place] # (Auto) Eos # (Auto) Seg Neutrophils % Seg Neuts % (Manual) Baso # (Auto) Lymphocytes % (Manual) Monocytes % (Manual) Eosinophils % (Manual) Basophils % (Manual) Seg Neutrophils # Seg Neutrophils # Man Lymphocytes # (Manual) Monocytes # (Manual) Eosinophils # (Manual) Nucleated RBC % Basophils # (Manual) PT INR APTT Heparin Anti-Xa Level ABG pH POC ABG pO2 ABG pO2 56.3 L ABG HCO3 29.3 H ABG O2 Saturation 91.5 L ABG Base Excess 4.7 H POC ABG pCO2 ABG Hemoglobin 12.1 L ABG Oxyhemoglobin ABG Chloride ABG Glucose Oxyhemoglobin 89.2 L Sodium 147 H Potassium Chloride Carbon Dioxide BUN 30 H Creatinine Glucose 124 H POC Glucose Lactic Acid Calcium Phosphorus Magnesium AST ALT Lactate Dehydrogenase Total Bilirubin Direct Bilirubin CK-MB (CK-2) C-Reactive Protein NT-Pro-B Natriuret Pep Total Protein Albumin 3.8 L Arterial Blood Glucose Urine WBC (Auto) Urine Creatinine 11/30/19 11/30/19 11/30/19 05:51 11:54 18:17 WBC RBC Hgb Hct MCHC RDW MCV MCH Lymph % (Auto) [place] % (Auto) [place] # Eos # Lymph # (Auto) [place] # (Auto) Eos # (Auto) Seg Neutrophils % Seg Neuts % (Manual) Baso # (Auto) Lymphocytes % (Manual) Monocytes % (Manual) Eosinophils % (Manual) Basophils % (Manual) Seg Neutrophils # Seg Neutrophils # Man Lymphocytes # (Manual) Monocytes # (Manual) Eosinophils # (Manual) Nucleated RBC % Basophils # (Manual) PT INR APTT Heparin Anti-Xa Level ABG pH POC ABG pO2 ABG pO2 ABG HCO3 ABG O2 Saturation ABG Base Excess POC ABG pCO2 ABG Hemoglobin ABG Oxyhemoglobin ABG Chloride ABG Glucose Oxyhemoglobin Sodium Potassium Chloride Carbon Dioxide BUN Creatinine Glucose POC Glucose 127 H 115 H 143 H Lactic Acid Calcium Phosphorus Magnesium AST ALT Lactate Dehydrogenase Total Bilirubin Direct Bilirubin CK-MB (CK-2) C-Reactive Protein NT-Pro-B Natriuret Pep Total Protein Albumin Arterial Blood Glucose Urine WBC (Auto) Urine Creatinine 12/01/19 12/01/19 12/01/19 01:18 05:22 12:16 WBC RBC Hgb Hct MCHC RDW MCV MCH Lymph % (Auto) [place] % (Auto) [place] # Eos # Lymph # (Auto) [place] # (Auto) Eos # (Auto) Seg Neutrophils % Seg Neuts % (Manual) Baso # (Auto) Lymphocytes % (Manual) Monocytes % (Manual) Eosinophils % (Manual) Basophils % (Manual) Seg Neutrophils # Seg Neutrophils # Man Lymphocytes # (Manual) Monocytes # (Manual) Eosinophils # (Manual) Nucleated RBC % Basophils # (Manual) PT INR APTT Heparin Anti-Xa Level ABG pH POC ABG pO2 ABG pO2 ABG HCO3 ABG O2 Saturation ABG Base Excess POC ABG pCO2 ABG Hemoglobin ABG Oxyhemoglobin ABG Chloride ABG Glucose Oxyhemoglobin Sodium Potassium 3.5 L Chloride 107.8 H Carbon Dioxide BUN 37 H Creatinine Glucose 157 H POC Glucose 118 H 148 H Lactic Acid Calcium 8.2 L D Phosphorus Magnesium AST 48 H ALT 60 H Lactate Dehydrogenase 194 H Total Bilirubin Direct Bilirubin CK-MB (CK-2) C-Reactive Protein 8.50 H NT-Pro-B Natriuret Pep Total Protein 5.5 L Albumin 2.8 L Arterial Blood Glucose Urine WBC (Auto) Urine Creatinine 12/01/19 12/02/19 12/02/19 18:04 00:05 05:16 WBC 11.4 H RBC Hgb Hct MCHC RDW 15.9 H MCV MCH Lymph % (Auto) [place] % (Auto) 9.9 H [place] # 1.1 H Eos # Lymph # (Auto) [place] # (Auto) Eos # (Auto) Seg Neutrophils % 70.3 H Seg Neuts % (Manual) Baso # (Auto) Lymphocytes % (Manual) Monocytes % (Manual) Eosinophils % (Manual) Basophils % (Manual) Seg Neutrophils # 8.0 H Seg Neutrophils # Man Lymphocytes # (Manual) Monocytes # (Manual) Eosinophils # (Manual) Nucleated RBC % Basophils # (Manual) PT INR APTT Heparin Anti-Xa Level ABG pH POC ABG pO2 ABG pO2 ABG HCO3 ABG O2 Saturation ABG Base Excess POC ABG pCO2 ABG Hemoglobin ABG Oxyhemoglobin ABG Chloride ABG Glucose Oxyhemoglobin Sodium Potassium Chloride Carbon Dioxide BUN Creatinine Glucose POC Glucose 143 H 107 H Lactic Acid Calcium Phosphorus Magnesium AST ALT Lactate Dehydrogenase Total Bilirubin Direct Bilirubin CK-MB (CK-2) C-Reactive Protein NT-Pro-B Natriuret Pep Total Protein Albumin Arterial Blood Glucose Urine WBC (Auto) Urine Creatinine 12/02/19 12/02/19 12/02/19 05:16 06:03 11:52 WBC RBC Hgb Hct MCHC RDW MCV MCH Lymph % (Auto) [place] % (Auto) [place] # Eos # Lymph # (Auto) [place] # (Auto) Eos # (Auto) Seg Neutrophils % Seg Neuts % (Manual) Baso # (Auto) Lymphocytes % (Manual) Monocytes % (Manual) Eosinophils % (Manual) Basophils % (Manual) Seg Neutrophils # Seg Neutrophils # Man Lymphocytes # (Manual) Monocytes # (Manual) Eosinophils # (Manual) Nucleated RBC % Basophils # (Manual) PT INR APTT Heparin Anti-Xa Level ABG pH POC ABG pO2 ABG pO2 ABG HCO3 ABG O2 Saturation ABG Base Excess POC ABG pCO2 ABG Hemoglobin ABG Oxyhemoglobin ABG Chloride ABG Glucose Oxyhemoglobin Sodium 146 H Potassium Chloride Carbon Dioxide BUN 28 H Creatinine Glucose 123 H POC Glucose 110 H 152 H Lactic Acid Calcium Phosphorus Magnesium AST ALT Lactate Dehydrogenase Total Bilirubin Direct Bilirubin CK-MB (CK-2) C-Reactive Protein NT-Pro-B Natriuret Pep Total Protein Albumin Arterial Blood Glucose Urine WBC (Auto) Urine Creatinine 12/02/19 12/02/19 12/02/19 12:58 17:58 23:36 WBC RBC Hgb Hct MCHC RDW MCV MCH Lymph % (Auto) [place] % (Auto) [place] # Eos # Lymph # (Auto) [place] # (Auto) Eos # (Auto) Seg Neutrophils % Seg Neuts % (Manual) Baso # (Auto) Lymphocytes % (Manual) Monocytes % (Manual) Eosinophils % (Manual) Basophils % (Manual) Seg Neutrophils # Seg Neutrophils # Man Lymphocytes # (Manual) Monocytes # (Manual) Eosinophils # (Manual) Nucleated RBC % Basophils # (Manual) PT INR APTT Heparin Anti-Xa Level ABG pH POC ABG pO2 78.1 L ABG pO2 ABG HCO3 ABG O2 Saturation ABG Base Excess POC ABG pCO2 ABG Hemoglobin ABG Oxyhemoglobin ABG Chloride ABG Glucose Oxyhemoglobin Sodium Potassium Chloride Carbon Dioxide BUN Creatinine Glucose POC Glucose 120 H 123 H Lactic Acid Calcium Phosphorus Magnesium AST ALT Lactate Dehydrogenase Total Bilirubin Direct Bilirubin CK-MB (CK-2) C-Reactive Protein NT-Pro-B Natriuret Pep Total Protein Albumin Arterial Blood Glucose Urine WBC (Auto) Urine Creatinine 12/03/19 12/03/19 12/03/19 06:03 06:14 11:46 WBC RBC Hgb Hct MCHC RDW MCV MCH Lymph % (Auto) [place] % (Auto) [place] # Eos # Lymph # (Auto) [place] # (Auto) Eos # (Auto) Seg Neutrophils % Seg Neuts % (Manual) Baso # (Auto) Lymphocytes % (Manual) Monocytes % (Manual) Eosinophils % (Manual) Basophils % (Manual) Seg Neutrophils # Seg Neutrophils # Man Lymphocytes # (Manual) Monocytes # (Manual) Eosinophils # (Manual) Nucleated RBC % Basophils # (Manual) PT INR APTT Heparin Anti-Xa Level ABG pH POC ABG pO2 ABG pO2 ABG HCO3 ABG O2 Saturation ABG Base Excess POC ABG pCO2 ABG Hemoglobin ABG Oxyhemoglobin ABG Chloride ABG Glucose Oxyhemoglobin Sodium Potassium Chloride Carbon Dioxide BUN Creatinine Glucose POC Glucose 142 H 130 H Lactic Acid Calcium Phosphorus Magnesium AST ALT Lactate Dehydrogenase Total Bilirubin Direct Bilirubin CK-MB (CK-2) C-Reactive Protein NT-Pro-B Natriuret Pep Total Protein Albumin Arterial Blood Glucose Urine WBC (Auto) 8.0 H Urine Creatinine 12/03/19 12/03/19 12/04/19 15:50 17:39 00:04 WBC RBC Hgb Hct MCHC RDW MCV MCH Lymph % (Auto) [place] % (Auto) [place] # Eos # Lymph # (Auto) [place] # (Auto) Eos # (Auto) Seg Neutrophils % Seg Neuts % (Manual) Baso # (Auto) Lymphocytes % (Manual) Monocytes % (Manual) Eosinophils % (Manual) Basophils % (Manual) Seg Neutrophils # Seg Neutrophils # Man Lymphocytes # (Manual) Monocytes # (Manual) Eosinophils # (Manual) Nucleated RBC % Basophils # (Manual) PT INR APTT Heparin Anti-Xa Level ABG pH POC ABG pO2 ABG pO2 ABG HCO3 ABG O2 Saturation ABG Base Excess POC ABG pCO2 ABG Hemoglobin ABG Oxyhemoglobin ABG Chloride ABG Glucose Oxyhemoglobin Sodium Potassium Chloride Carbon Dioxide BUN Creatinine Glucose POC Glucose 146 H 133 H Lactic Acid Calcium Phosphorus 2.40 L Magnesium AST ALT Lactate Dehydrogenase Total Bilirubin Direct Bilirubin CK-MB (CK-2) C-Reactive Protein NT-Pro-B Natriuret Pep Total Protein Albumin Arterial Blood Glucose Urine WBC (Auto) Urine Creatinine 12/04/19 12/04/19 12/04/19 03:58 03:58 05:22 WBC 12.5 H RBC Hgb 11.2 L Hct 35.2 L MCHC RDW 16.0 H MCV MCH Lymph % (Auto) [place] % (Auto) 9.6 H [place] # 1.2 H Eos # 0.5 H Lymph # (Auto) [place] # (Auto) Eos # (Auto) Seg Neutrophils % Seg Neuts % (Manual) Baso # (Auto) Lymphocytes % (Manual) Monocytes % (Manual) Eosinophils % (Manual) Basophils % (Manual) Seg Neutrophils # 8.6 H Seg Neutrophils # Man Lymphocytes # (Manual) Monocytes # (Manual) Eosinophils # (Manual) Nucleated RBC % Basophils # (Manual) PT INR APTT Heparin Anti-Xa Level ABG pH POC ABG pO2 ABG pO2 ABG HCO3 ABG O2 Saturation ABG Base Excess POC ABG pCO2 ABG Hemoglobin ABG Oxyhemoglobin ABG Chloride ABG Glucose Oxyhemoglobin Sodium 146 H Potassium Chloride 108.6 H Carbon Dioxide BUN 30 H Creatinine 0.7 L Glucose 121 H POC Glucose 132 H Lactic Acid Calcium Phosphorus Magnesium AST ALT Lactate Dehydrogenase Total Bilirubin Direct Bilirubin CK-MB (CK-2) C-Reactive Protein NT-Pro-B Natriuret Pep Total Protein Albumin Arterial Blood Glucose Urine WBC (Auto) Urine Creatinine 12/04/19 12/04/19 12/05/19 13:26 18:43 00:19 WBC RBC Hgb Hct MCHC RDW MCV MCH Lymph % (Auto) [place] % (Auto) [place] # Eos # Lymph # (Auto) [place] # (Auto) Eos # (Auto) Seg Neutrophils % Seg Neuts % (Manual) Baso # (Auto) Lymphocytes % (Manual) Monocytes % (Manual) Eosinophils % (Manual) Basophils % (Manual) Seg Neutrophils # Seg Neutrophils # Man Lymphocytes # (Manual) Monocytes # (Manual) Eosinophils # (Manual) Nucleated RBC % Basophils # (Manual) PT INR APTT Heparin Anti-Xa Level ABG pH POC ABG pO2 ABG pO2 ABG HCO3 ABG O2 Saturation ABG Base Excess POC ABG pCO2 ABG Hemoglobin ABG Oxyhemoglobin ABG Chloride ABG Glucose Oxyhemoglobin Sodium Potassium Chloride Carbon Dioxide BUN Creatinine Glucose POC Glucose 185 H 156 H 150 H Lactic Acid Calcium Phosphorus Magnesium AST ALT Lactate Dehydrogenase Total Bilirubin Direct Bilirubin CK-MB (CK-2) C-Reactive Protein NT-Pro-B Natriuret Pep Total Protein Albumin Arterial Blood Glucose Urine WBC (Auto) Urine Creatinine 12/05/19 12/05/19 12/05/19 03:37 03:37 05:14 WBC 16.3 H RBC Hgb 11.4 L Hct MCHC RDW 15.6 H MCV MCH Lymph % (Auto) 9.9 L [place] % (Auto) 9.7 H [place] # 1.6 H Eos # Lymph # (Auto) [place] # (Auto) Eos # (Auto) Seg Neutrophils % 78.0 H Seg Neuts % (Manual) Baso # (Auto) Lymphocytes % (Manual) Monocytes % (Manual) Eosinophils % (Manual) Basophils % (Manual) Seg Neutrophils # 12.7 H Seg Neutrophils # Man Lymphocytes # (Manual) Monocytes # (Manual) Eosinophils # (Manual) Nucleated RBC % Basophils # (Manual) PT INR APTT Heparin Anti-Xa Level ABG pH POC ABG pO2 ABG pO2 ABG HCO3 ABG O2 Saturation ABG Base Excess POC ABG pCO2 ABG Hemoglobin ABG Oxyhemoglobin ABG Chloride ABG Glucose Oxyhemoglobin Sodium 146 H Potassium Chloride 107.2 H Carbon Dioxide BUN 27 H Creatinine 0.7 L Glucose 171 H POC Glucose 168 H Lactic Acid Calcium Phosphorus Magnesium AST ALT Lactate Dehydrogenase Total Bilirubin Direct Bilirubin CK-MB (CK-2) C-Reactive Protein NT-Pro-B Natriuret Pep Total Protein Albumin Arterial Blood Glucose Urine WBC (Auto) Urine Creatinine 12/05/19 12/05/19 12/05/19 12:31 18:10 23:58 WBC RBC Hgb Hct MCHC RDW MCV MCH Lymph % (Auto) [place] % (Auto) [place] # Eos # Lymph # (Auto) [place] # (Auto) Eos # (Auto) Seg Neutrophils % Seg Neuts % (Manual) Baso # (Auto) Lymphocytes % (Manual) Monocytes % (Manual) Eosinophils % (Manual) Basophils % (Manual) Seg Neutrophils # Seg Neutrophils # Man Lymphocytes # (Manual) Monocytes # (Manual) Eosinophils # (Manual) Nucleated RBC % Basophils # (Manual) PT INR APTT Heparin Anti-Xa Level ABG pH POC ABG pO2 ABG pO2 ABG HCO3 ABG O2 Saturation ABG Base Excess POC ABG pCO2 ABG Hemoglobin ABG Oxyhemoglobin ABG Chloride ABG Glucose Oxyhemoglobin Sodium Potassium Chloride Carbon Dioxide BUN Creatinine Glucose POC Glucose 159 H 198 H 115 H Lactic Acid Calcium Phosphorus Magnesium AST ALT Lactate Dehydrogenase Total Bilirubin Direct Bilirubin CK-MB (CK-2) C-Reactive Protein NT-Pro-B Natriuret Pep Total Protein Albumin Arterial Blood Glucose Urine WBC (Auto) Urine Creatinine 12/06/19 12/06/19 12/06/19 05:24 05:24 05:25 WBC 14.9 H RBC Hgb 10.8 L Hct 34.0 L MCHC RDW 15.6 H MCV MCH Lymph % (Auto) 10.7 L [place] % (Auto) 8.3 H [place] # 1.2 H Eos # Lymph # (Auto) [place] # (Auto) Eos # (Auto) Seg Neutrophils % 78.7 H Seg Neuts % (Manual) Baso # (Auto) Lymphocytes % (Manual) Monocytes % (Manual) Eosinophils % (Manual) Basophils % (Manual) Seg Neutrophils # 11.7 H Seg Neutrophils # Man Lymphocytes # (Manual) Monocytes # (Manual) Eosinophils # (Manual) Nucleated RBC % Basophils # (Manual) PT INR APTT Heparin Anti-Xa Level ABG pH POC ABG pO2 ABG pO2 ABG HCO3 ABG O2 Saturation ABG Base Excess POC ABG pCO2 ABG Hemoglobin ABG Oxyhemoglobin ABG Chloride ABG Glucose Oxyhemoglobin Sodium 148 H Potassium 5.1 H Chloride 107.6 H Carbon Dioxide BUN 27 H Creatinine 0.7 L Glucose 155 H POC Glucose 157 H Lactic Acid Calcium Phosphorus Magnesium AST ALT Lactate Dehydrogenase Total Bilirubin Direct Bilirubin CK-MB (CK-2) C-Reactive Protein NT-Pro-B Natriuret Pep Total Protein Albumin Arterial Blood Glucose Urine WBC (Auto) Urine Creatinine 12/07/19 12/07/19 12/07/19 00:13 05:34 11:33 WBC RBC Hgb Hct MCHC RDW MCV MCH Lymph % (Auto) [place] % (Auto) [place] # Eos # Lymph # (Auto) [place] # (Auto) Eos # (Auto) Seg Neutrophils % Seg Neuts % (Manual) Baso # (Auto) Lymphocytes % (Manual) Monocytes % (Manual) Eosinophils % (Manual) Basophils % (Manual) Seg Neutrophils # Seg Neutrophils # Man Lymphocytes # (Manual) Monocytes # (Manual) Eosinophils # (Manual) Nucleated RBC % Basophils # (Manual) PT INR APTT Heparin Anti-Xa Level ABG pH POC ABG pO2 ABG pO2 ABG HCO3 ABG O2 Saturation ABG Base Excess POC ABG pCO2 ABG Hemoglobin ABG Oxyhemoglobin ABG Chloride ABG Glucose Oxyhemoglobin Sodium Potassium Chloride Carbon Dioxide BUN Creatinine Glucose POC Glucose 142 H 111 H 169 H Lactic Acid Calcium Phosphorus Magnesium AST ALT Lactate Dehydrogenase Total Bilirubin Direct Bilirubin CK-MB (CK-2) C-Reactive Protein NT-Pro-B Natriuret Pep Total Protein Albumin Arterial Blood Glucose Urine WBC (Auto) Urine Creatinine 12/07/19 12/07/19 12/07/19 12:41 13:25 18:19 WBC 12.4 H RBC 3.53 L Hgb 10.2 L Hct 32.1 L MCHC RDW 15.3 H MCV MCH Lymph % (Auto) 10.6 L [place] % (Auto) 7.8 H [place] # 1.0 H Eos # Lymph # (Auto) [place] # (Auto) Eos # (Auto) Seg Neutrophils % 77.6 H Seg Neuts % (Manual) Baso # (Auto) Lymphocytes % (Manual) Monocytes % (Manual) Eosinophils % (Manual) Basophils % (Manual) Seg Neutrophils # 9.6 H Seg Neutrophils # Man Lymphocytes # (Manual) Monocytes # (Manual) Eosinophils # (Manual) Nucleated RBC % Basophils # (Manual) PT INR APTT Heparin Anti-Xa Level ABG pH POC ABG pO2 ABG pO2 ABG HCO3 ABG O2 Saturation ABG Base Excess POC ABG pCO2 ABG Hemoglobin ABG Oxyhemoglobin ABG Chloride ABG Glucose Oxyhemoglobin Sodium 149 H Potassium Chloride 108.4 H Carbon Dioxide BUN 26 H Creatinine 0.6 L Glucose 149 H POC Glucose 164 H Lactic Acid Calcium Phosphorus Magnesium 2.60 H AST 121 H ALT 145 H Lactate Dehydrogenase Total Bilirubin Direct Bilirubin CK-MB (CK-2) C-Reactive Protein NT-Pro-B Natriuret Pep Total Protein Albumin 2.6 L Arterial Blood Glucose Urine WBC (Auto) Urine Creatinine 12/07/19 12/08/19 12/08/19 22:25 00:02 03:55 WBC 13.3 H RBC 3.40 L Hgb 9.7 L Hct 30.8 L MCHC 31 L RDW 15.5 H MCV MCH Lymph % (Auto) [place] % (Auto) 8.1 H [place] # 1.1 H Eos # Lymph # (Auto) [place] # (Auto) Eos # (Auto) Seg Neutrophils % 73.0 H Seg Neuts % (Manual) Baso # (Auto) Lymphocytes % (Manual) Monocytes % (Manual) Eosinophils % (Manual) Basophils % (Manual) Seg Neutrophils # 9.7 H Seg Neutrophils # Man Lymphocytes # (Manual) Monocytes # (Manual) Eosinophils # (Manual) Nucleated RBC % Basophils # (Manual) PT INR APTT Heparin Anti-Xa Level 0.12 L ABG pH POC ABG pO2 ABG pO2 ABG HCO3 ABG O2 Saturation ABG Base Excess POC ABG pCO2 ABG Hemoglobin ABG Oxyhemoglobin ABG Chloride ABG Glucose Oxyhemoglobin Sodium Potassium Chloride Carbon Dioxide BUN Creatinine Glucose POC Glucose 151 H Lactic Acid Calcium Phosphorus Magnesium AST ALT Lactate Dehydrogenase Total Bilirubin Direct Bilirubin CK-MB (CK-2) C-Reactive Protein NT-Pro-B Natriuret Pep Total Protein Albumin Arterial Blood Glucose Urine WBC (Auto) Urine Creatinine 12/08/19 12/08/19 12/08/19 03:55 05:21 06:01 WBC RBC Hgb Hct MCHC RDW MCV MCH Lymph % (Auto) [place] % (Auto) [place] # Eos # Lymph # (Auto) [place] # (Auto) Eos # (Auto) Seg Neutrophils % Seg Neuts % (Manual) Baso # (Auto) Lymphocytes % (Manual) Monocytes % (Manual) Eosinophils % (Manual) Basophils % (Manual) Seg Neutrophils # Seg Neutrophils # Man Lymphocytes # (Manual) Monocytes # (Manual) Eosinophils # (Manual) Nucleated RBC % Basophils # (Manual) PT INR APTT Heparin Anti-Xa Level 0.20 L ABG pH POC ABG pO2 ABG pO2 ABG HCO3 ABG O2 Saturation ABG Base Excess POC ABG pCO2 ABG Hemoglobin ABG Oxyhemoglobin ABG Chloride ABG Glucose Oxyhemoglobin Sodium 149 H Potassium Chloride 108.0 H Carbon Dioxide BUN 28 H Creatinine 0.6 L Glucose 144 H POC Glucose 143 H Lactic Acid Calcium Phosphorus Magnesium AST 98 H ALT 145 H Lactate Dehydrogenase Total Bilirubin Direct Bilirubin CK-MB (CK-2) C-Reactive Protein NT-Pro-B Natriuret Pep Total Protein 6.0 L Albumin 2.4 L Arterial Blood Glucose Urine WBC (Auto) Urine Creatinine 12/08/19 12/08/19 12/08/19 12:08 18:11 23:53 WBC RBC Hgb Hct MCHC RDW MCV MCH Lymph % (Auto) [place] % (Auto) [place] # Eos # Lymph # (Auto) [place] # (Auto) Eos # (Auto) Seg Neutrophils % Seg Neuts % (Manual) Baso # (Auto) Lymphocytes % (Manual) Monocytes % (Manual) Eosinophils % (Manual) Basophils % (Manual) Seg Neutrophils # Seg Neutrophils # Man Lymphocytes # (Manual) Monocytes # (Manual) Eosinophils # (Manual) Nucleated RBC % Basophils # (Manual) PT INR APTT Heparin Anti-Xa Level ABG pH POC ABG pO2 ABG pO2 ABG HCO3 ABG O2 Saturation ABG Base Excess POC ABG pCO2 ABG Hemoglobin ABG Oxyhemoglobin ABG Chloride ABG Glucose Oxyhemoglobin Sodium Potassium Chloride Carbon Dioxide BUN Creatinine Glucose POC Glucose 172 H 122 H 162 H Lactic Acid Calcium Phosphorus Magnesium AST ALT Lactate Dehydrogenase Total Bilirubin Direct Bilirubin CK-MB (CK-2) C-Reactive Protein NT-Pro-B Natriuret Pep Total Protein Albumin Arterial Blood Glucose Urine WBC (Auto) Urine Creatinine 12/09/19 12/09/19 12/09/19 04:03 04:03 05:53 WBC RBC Hgb 9.1 L Hct 28.9 L MCHC RDW MCV MCH Lymph % (Auto) [place] % (Auto) [place] # Eos # Lymph # (Auto) [place] # (Auto) Eos # (Auto) Seg Neutrophils % Seg Neuts % (Manual) Baso # (Auto) Lymphocytes % (Manual) Monocytes % (Manual) Eosinophils % (Manual) Basophils % (Manual) Seg Neutrophils # Seg Neutrophils # Man Lymphocytes # (Manual) Monocytes # (Manual) Eosinophils # (Manual) Nucleated RBC % Basophils # (Manual) PT INR APTT Heparin Anti-Xa Level 0.15 L ABG pH POC ABG pO2 ABG pO2 ABG HCO3 ABG O2 Saturation ABG Base Excess POC ABG pCO2 ABG Hemoglobin ABG Oxyhemoglobin ABG Chloride ABG Glucose Oxyhemoglobin Sodium Potassium Chloride Carbon Dioxide BUN Creatinine Glucose POC Glucose 124 H Lactic Acid Calcium Phosphorus Magnesium AST ALT Lactate Dehydrogenase Total Bilirubin Direct Bilirubin CK-MB (CK-2) C-Reactive Protein NT-Pro-B Natriuret Pep Total Protein Albumin Arterial Blood Glucose Urine WBC (Auto) Urine Creatinine 12/09/19 12/09/19 12/10/19 09:43 12:41 00:13 WBC RBC Hgb Hct MCHC RDW MCV MCH Lymph % (Auto) [place] % (Auto) [place] # Eos # Lymph # (Auto) [place] # (Auto) Eos # (Auto) Seg Neutrophils % Seg Neuts % (Manual) Baso # (Auto) Lymphocytes % (Manual) Monocytes % (Manual) Eosinophils % (Manual) Basophils % (Manual) Seg Neutrophils # Seg Neutrophils # Man Lymphocytes # (Manual) Monocytes # (Manual) Eosinophils # (Manual) Nucleated RBC % Basophils # (Manual) PT INR APTT Heparin Anti-Xa Level ABG pH POC ABG pO2 ABG pO2 ABG HCO3 ABG O2 Saturation ABG Base Excess POC ABG pCO2 ABG Hemoglobin ABG Oxyhemoglobin ABG Chloride ABG Glucose Oxyhemoglobin Sodium Potassium Chloride Carbon Dioxide BUN 25 H Creatinine 0.6 L Glucose 131 H POC Glucose 109 H 120 H Lactic Acid Calcium Phosphorus Magnesium AST ALT Lactate Dehydrogenase Total Bilirubin Direct Bilirubin CK-MB (CK-2) C-Reactive Protein NT-Pro-B Natriuret Pep Total Protein Albumin Arterial Blood Glucose Urine WBC (Auto) Urine Creatinine 12/10/19 12/10/19 12/10/19 04:14 04:14 12:00 WBC 13.3 H RBC 3.34 L Hgb 9.6 L Hct 30.4 L MCHC RDW 15.4 H MCV MCH Lymph % (Auto) [place] % (Auto) [place] # Eos # Lymph # (Auto) [place] # (Auto) Eos # (Auto) Seg Neutrophils % Seg Neuts % (Manual) 75.0 H Baso # (Auto) Lymphocytes % (Manual) 13.0 L Monocytes % (Manual) 8.0 H Eosinophils % (Manual) Basophils % (Manual) 2.0 H Seg Neutrophils # Seg Neutrophils # Man 10.0 H Lymphocytes # (Manual) Monocytes # (Manual) 1.1 H Eosinophils # (Manual) Nucleated RBC % Basophils # (Manual) 0.3 H PT INR APTT Heparin Anti-Xa Level ABG pH POC ABG pO2 ABG pO2 ABG HCO3 ABG O2 Saturation ABG Base Excess POC ABG pCO2 ABG Hemoglobin ABG Oxyhemoglobin ABG Chloride ABG Glucose Oxyhemoglobin Sodium 147 H Potassium Chloride 108.3 H Carbon Dioxide BUN 21 H Creatinine 0.6 L Glucose 104 H POC Glucose 133 H Lactic Acid Calcium Phosphorus Magnesium AST ALT Lactate Dehydrogenase Total Bilirubin Direct Bilirubin CK-MB (CK-2) C-Reactive Protein NT-Pro-B Natriuret Pep Total Protein Albumin Arterial Blood Glucose Urine WBC (Auto) Urine Creatinine 12/10/19 12/10/19 12/11/19 18:44 21:20 00:08 WBC 14.9 H RBC 3.36 L Hgb 9.6 L Hct 30.5 L MCHC RDW 15.4 H MCV MCH Lymph % (Auto) [place] % (Auto) [place] # Eos # Lymph # (Auto) [place] # (Auto) Eos # (Auto) Seg Neutrophils % Seg Neuts % (Manual) Baso # (Auto) Lymphocytes % (Manual) Monocytes % (Manual) Eosinophils % (Manual) Basophils % (Manual) Seg Neutrophils # Seg Neutrophils # Man Lymphocytes # (Manual) Monocytes # (Manual) Eosinophils # (Manual) Nucleated RBC % Basophils # (Manual) PT INR APTT Heparin Anti-Xa Level ABG pH POC ABG pO2 ABG pO2 ABG HCO3 ABG O2 Saturation ABG Base Excess POC ABG pCO2 ABG Hemoglobin ABG Oxyhemoglobin ABG Chloride ABG Glucose Oxyhemoglobin Sodium Potassium Chloride Carbon Dioxide BUN Creatinine Glucose POC Glucose 119 H 134 H Lactic Acid Calcium Phosphorus Magnesium AST ALT Lactate Dehydrogenase Total Bilirubin Direct Bilirubin CK-MB (CK-2) C-Reactive Protein NT-Pro-B Natriuret Pep Total Protein Albumin Arterial Blood Glucose Urine WBC (Auto) Urine Creatinine 12/11/19 12/11/19 12/11/19 03:54 07:28 08:36 WBC 11.9 H RBC 3.25 L Hgb 9.6 L Hct 29.2 L MCHC RDW 15.7 H MCV MCH Lymph % (Auto) [place] % (Auto) [place] # Eos # Lymph # (Auto) [place] # (Auto) Eos # (Auto) Seg Neutrophils % Seg Neuts % (Manual) Baso # (Auto) Lymphocytes % (Manual) Monocytes % (Manual) Eosinophils % (Manual) Basophils % (Manual) Seg Neutrophils # Seg Neutrophils # Man Lymphocytes # (Manual) Monocytes # (Manual) Eosinophils # (Manual) Nucleated RBC % Basophils # (Manual) PT INR APTT Heparin Anti-Xa Level 0.10 L 0.16 L ABG pH POC ABG pO2 ABG pO2 ABG HCO3 ABG O2 Saturation ABG Base Excess POC ABG pCO2 ABG Hemoglobin ABG Oxyhemoglobin ABG Chloride ABG Glucose Oxyhemoglobin Sodium Potassium Chloride Carbon Dioxide BUN Creatinine Glucose POC Glucose Lactic Acid Calcium Phosphorus Magnesium AST ALT Lactate Dehydrogenase Total Bilirubin Direct Bilirubin CK-MB (CK-2) C-Reactive Protein NT-Pro-B Natriuret Pep Total Protein Albumin Arterial Blood Glucose Urine WBC (Auto) Urine Creatinine 12/11/19 12/11/19 12/11/19 08:36 11:45 17:15 WBC RBC Hgb Hct MCHC RDW MCV MCH Lymph % (Auto) [place] % (Auto) [place] # Eos # Lymph # (Auto) [place] # (Auto) Eos # (Auto) Seg Neutrophils % Seg Neuts % (Manual) Baso # (Auto) Lymphocytes % (Manual) Monocytes % (Manual) Eosinophils % (Manual) Basophils % (Manual) Seg Neutrophils # Seg Neutrophils # Man Lymphocytes # (Manual) Monocytes # (Manual) Eosinophils # (Manual) Nucleated RBC % Basophils # (Manual) PT INR APTT Heparin Anti-Xa Level ABG pH POC ABG pO2 ABG pO2 ABG HCO3 ABG O2 Saturation ABG Base Excess POC ABG pCO2 ABG Hemoglobin ABG Oxyhemoglobin ABG Chloride ABG Glucose Oxyhemoglobin Sodium Potassium Chloride Carbon Dioxide BUN Creatinine 0.5 L Glucose 128 H POC Glucose 136 H 109 H Lactic Acid Calcium Phosphorus Magnesium AST ALT Lactate Dehydrogenase Total Bilirubin Direct Bilirubin CK-MB (CK-2) C-Reactive Protein NT-Pro-B Natriuret Pep Total Protein Albumin Arterial Blood Glucose Urine WBC (Auto) Urine Creatinine 12/12/19 12/12/19 12/12/19 00:03 05:53 05:53 WBC RBC Hgb 8.8 L Hct 27.6 L MCHC RDW MCV MCH Lymph % (Auto) [place] % (Auto) [place] # Eos # Lymph # (Auto) [place] # (Auto) Eos # (Auto) Seg Neutrophils % Seg Neuts % (Manual) Baso # (Auto) Lymphocytes % (Manual) Monocytes % (Manual) Eosinophils % (Manual) Basophils % (Manual) Seg Neutrophils # Seg Neutrophils # Man Lymphocytes # (Manual) Monocytes # (Manual) Eosinophils # (Manual) Nucleated RBC % Basophils # (Manual) PT INR APTT Heparin Anti-Xa Level 0.22 L ABG pH POC ABG pO2 ABG pO2 ABG HCO3 ABG O2 Saturation ABG Base Excess POC ABG pCO2 ABG Hemoglobin ABG Oxyhemoglobin ABG Chloride ABG Glucose Oxyhemoglobin Sodium Potassium Chloride Carbon Dioxide BUN Creatinine Glucose POC Glucose 116 H Lactic Acid Calcium Phosphorus Magnesium AST ALT Lactate Dehydrogenase Total Bilirubin Direct Bilirubin CK-MB (CK-2) C-Reactive Protein NT-Pro-B Natriuret Pep Total Protein Albumin Arterial Blood Glucose Urine WBC (Auto) Urine Creatinine 12/12/19 12/12/19 12/12/19 09:38 12:18 17:44 WBC RBC Hgb Hct MCHC RDW MCV MCH Lymph % (Auto) [place] % (Auto) [place] # Eos # Lymph # (Auto) [place] # (Auto) Eos # (Auto) Seg Neutrophils % Seg Neuts % (Manual) Baso # (Auto) Lymphocytes % (Manual) Monocytes % (Manual) Eosinophils % (Manual) Basophils % (Manual) Seg Neutrophils # Seg Neutrophils # Man Lymphocytes # (Manual) Monocytes # (Manual) Eosinophils # (Manual) Nucleated RBC % Basophils # (Manual) PT INR APTT Heparin Anti-Xa Level ABG pH POC ABG pO2 ABG pO2 ABG HCO3 ABG O2 Saturation ABG Base Excess POC ABG pCO2 ABG Hemoglobin ABG Oxyhemoglobin ABG Chloride ABG Glucose Oxyhemoglobin Sodium Potassium Chloride Carbon Dioxide BUN Creatinine Glucose POC Glucose 115 H 146 H 146 H Lactic Acid Calcium Phosphorus Magnesium AST ALT Lactate Dehydrogenase Total Bilirubin Direct Bilirubin CK-MB (CK-2) C-Reactive Protein NT-Pro-B Natriuret Pep Total Protein Albumin Arterial Blood Glucose Urine WBC (Auto) Urine Creatinine 12/12/19 12/13/19 12/13/19 23:33 05:32 05:32 WBC 13.1 H RBC 3.27 L Hgb 9.5 L Hct 29.3 L MCHC RDW 15.6 H MCV MCH Lymph % (Auto) [place] % (Auto) [place] # Eos # Lymph # (Auto) [place] # (Auto) Eos # (Auto) Seg Neutrophils % Seg Neuts % (Manual) 74.0 H Baso # (Auto) Lymphocytes % (Manual) 8.0 L Monocytes % (Manual) 9.0 H Eosinophils % (Manual) 5.0 H Basophils % (Manual) Seg Neutrophils # Seg Neutrophils # Man 9.7 H Lymphocytes # (Manual) 1.0 L Monocytes # (Manual) 1.2 H Eosinophils # (Manual) 0.7 H Nucleated RBC % Basophils # (Manual) PT INR APTT Heparin Anti-Xa Level 0.20 L ABG pH POC ABG pO2 ABG pO2 ABG HCO3 ABG O2 Saturation ABG Base Excess POC ABG pCO2 ABG Hemoglobin ABG Oxyhemoglobin ABG Chloride ABG Glucose Oxyhemoglobin Sodium Potassium Chloride Carbon Dioxide BUN Creatinine Glucose POC Glucose 126 H Lactic Acid Calcium Phosphorus Magnesium AST ALT Lactate Dehydrogenase Total Bilirubin Direct Bilirubin CK-MB (CK-2) C-Reactive Protein NT-Pro-B Natriuret Pep Total Protein Albumin Arterial Blood Glucose Urine WBC (Auto) Urine Creatinine 12/13/19 12/13/19 12/13/19 05:32 05:46 11:57 WBC RBC Hgb Hct MCHC RDW MCV MCH Lymph % (Auto) [place] % (Auto) [place] # Eos # Lymph # (Auto) [place] # (Auto) Eos # (Auto) Seg Neutrophils % Seg Neuts % (Manual) Baso # (Auto) Lymphocytes % (Manual) Monocytes % (Manual) Eosinophils % (Manual) Basophils % (Manual) Seg Neutrophils # Seg Neutrophils # Man Lymphocytes # (Manual) Monocytes # (Manual) Eosinophils # (Manual) Nucleated RBC % Basophils # (Manual) PT INR APTT Heparin Anti-Xa Level ABG pH POC ABG pO2 ABG pO2 ABG HCO3 ABG O2 Saturation ABG Base Excess POC ABG pCO2 ABG Hemoglobin ABG Oxyhemoglobin ABG Chloride ABG Glucose Oxyhemoglobin Sodium Potassium Chloride Carbon Dioxide 31 H BUN Creatinine 0.6 L Glucose 114 H POC Glucose 118 H 133 H Lactic Acid Calcium Phosphorus Magnesium AST ALT Lactate Dehydrogenase Total Bilirubin Direct Bilirubin CK-MB (CK-2) C-Reactive Protein NT-Pro-B Natriuret Pep Total Protein Albumin Arterial Blood Glucose Urine WBC (Auto) Urine Creatinine 12/13/19 12/13/19 12/14/19 17:44 23:46 05:32 WBC RBC Hgb Hct MCHC RDW MCV MCH Lymph % (Auto) [place] % (Auto) [place] # Eos # Lymph # (Auto) [place] # (Auto) Eos # (Auto) Seg Neutrophils % Seg Neuts % (Manual) Baso # (Auto) Lymphocytes % (Manual) Monocytes % (Manual) Eosinophils % (Manual) Basophils % (Manual) Seg Neutrophils # Seg Neutrophils # Man Lymphocytes # (Manual) Monocytes # (Manual) Eosinophils # (Manual) Nucleated RBC % Basophils # (Manual) PT INR APTT Heparin Anti-Xa Level ABG pH POC ABG pO2 ABG pO2 ABG HCO3 ABG O2 Saturation ABG Base Excess POC ABG pCO2 ABG Hemoglobin ABG Oxyhemoglobin ABG Chloride ABG Glucose Oxyhemoglobin Sodium Potassium Chloride Carbon Dioxide BUN Creatinine Glucose POC Glucose 161 H 126 H 139 H Lactic Acid Calcium Phosphorus Magnesium AST ALT Lactate Dehydrogenase Total Bilirubin Direct Bilirubin CK-MB (CK-2) C-Reactive Protein NT-Pro-B Natriuret Pep Total Protein Albumin Arterial Blood Glucose Urine WBC (Auto) Urine Creatinine 12/14/19 12/14/19 12/14/19 06:03 06:03 09:37 WBC RBC Hgb 9.6 L Hct 30.4 L MCHC RDW MCV MCH Lymph % (Auto) [place] % (Auto) [place] # Eos # Lymph # (Auto) [place] # (Auto) Eos # (Auto) Seg Neutrophils % Seg Neuts % (Manual) Baso # (Auto) Lymphocytes % (Manual) Monocytes % (Manual) Eosinophils % (Manual) Basophils % (Manual) Seg Neutrophils # Seg Neutrophils # Man Lymphocytes # (Manual) Monocytes # (Manual) Eosinophils # (Manual) Nucleated RBC % Basophils # (Manual) PT INR APTT Heparin Anti-Xa Level 0.24 L ABG pH POC ABG pO2 ABG pO2 ABG HCO3 ABG O2 Saturation ABG Base Excess POC ABG pCO2 ABG Hemoglobin ABG Oxyhemoglobin ABG Chloride ABG Glucose Oxyhemoglobin Sodium Potassium Chloride Carbon Dioxide BUN Creatinine 0.6 L Glucose 162 H POC Glucose Lactic Acid Calcium Phosphorus Magnesium AST 71 H ALT 118 H Lactate Dehydrogenase Total Bilirubin Direct Bilirubin CK-MB (CK-2) C-Reactive Protein NT-Pro-B Natriuret Pep Total Protein 6.2 L Albumin 2.3 L Arterial Blood Glucose Urine WBC (Auto) Urine Creatinine 12/14/19 12/14/19 12/15/19 12:06 18:18 00:19 WBC RBC Hgb Hct MCHC RDW MCV MCH Lymph % (Auto) [place] % (Auto) [place] # Eos # Lymph # (Auto) [place] # (Auto) Eos # (Auto) Seg Neutrophils % Seg Neuts % (Manual) Baso # (Auto) Lymphocytes % (Manual) Monocytes % (Manual) Eosinophils % (Manual) Basophils % (Manual) Seg Neutrophils # Seg Neutrophils # Man Lymphocytes # (Manual) Monocytes # (Manual) Eosinophils # (Manual) Nucleated RBC % Basophils # (Manual) PT INR APTT Heparin Anti-Xa Level ABG pH POC ABG pO2 ABG pO2 ABG HCO3 ABG O2 Saturation ABG Base Excess POC ABG pCO2 ABG Hemoglobin ABG Oxyhemoglobin ABG Chloride ABG Glucose Oxyhemoglobin Sodium Potassium Chloride Carbon Dioxide BUN Creatinine Glucose POC Glucose 147 H 166 H 123 H Lactic Acid Calcium Phosphorus Magnesium AST ALT Lactate Dehydrogenase Total Bilirubin Direct Bilirubin CK-MB (CK-2) C-Reactive Protein NT-Pro-B Natriuret Pep Total Protein Albumin Arterial Blood Glucose Urine WBC (Auto) Urine Creatinine 12/15/19 12/15/19 12/15/19 05:28 05:29 05:29 WBC 14.9 H RBC 3.19 L Hgb 9.1 L Hct 28.7 L MCHC RDW 16.0 H MCV MCH Lymph % (Auto) [place] % (Auto) [place] # Eos # Lymph # (Auto) [place] # (Auto) Eos # (Auto) Seg Neutrophils % Seg Neuts % (Manual) Baso # (Auto) Lymphocytes % (Manual) Monocytes % (Manual) Eosinophils % (Manual) Basophils % (Manual) Seg Neutrophils # Seg Neutrophils # Man Lymphocytes # (Manual) Monocytes # (Manual) Eosinophils # (Manual) Nucleated RBC % Basophils # (Manual) PT INR APTT Heparin Anti-Xa Level 0.19 L ABG pH POC ABG pO2 ABG pO2 ABG HCO3 ABG O2 Saturation ABG Base Excess POC ABG pCO2 ABG Hemoglobin ABG Oxyhemoglobin ABG Chloride ABG Glucose Oxyhemoglobin Sodium Potassium Chloride Carbon Dioxide BUN Creatinine 0.6 L Glucose 110 H POC Glucose Lactic Acid Calcium Phosphorus Magnesium AST ALT Lactate Dehydrogenase Total Bilirubin Direct Bilirubin CK-MB (CK-2) C-Reactive Protein NT-Pro-B Natriuret Pep Total Protein Albumin Arterial Blood Glucose Urine WBC (Auto) Urine Creatinine 12/15/19 12/15/19 12/15/19 05:53 11:50 17:26 WBC RBC Hgb Hct MCHC RDW MCV MCH Lymph % (Auto) [place] % (Auto) [place] # Eos # Lymph # (Auto) [place] # (Auto) Eos # (Auto) Seg Neutrophils % Seg Neuts % (Manual) Baso # (Auto) Lymphocytes % (Manual) Monocytes % (Manual) Eosinophils % (Manual) Basophils % (Manual) Seg Neutrophils # Seg Neutrophils # Man Lymphocytes # (Manual) Monocytes # (Manual) Eosinophils # (Manual) Nucleated RBC % Basophils # (Manual) PT INR APTT Heparin Anti-Xa Level ABG pH POC ABG pO2 ABG pO2 ABG HCO3 ABG O2 Saturation ABG Base Excess POC ABG pCO2 ABG Hemoglobin ABG Oxyhemoglobin ABG Chloride ABG Glucose Oxyhemoglobin Sodium Potassium Chloride Carbon Dioxide BUN Creatinine Glucose POC Glucose 119 H 132 H 128 H Lactic Acid Calcium Phosphorus Magnesium AST ALT Lactate Dehydrogenase Total Bilirubin Direct Bilirubin CK-MB (CK-2) C-Reactive Protein NT-Pro-B Natriuret Pep Total Protein Albumin Arterial Blood Glucose Urine WBC (Auto) Urine Creatinine 12/15/19 12/16/19 12/16/19 23:11 05:30 05:46 WBC RBC Hgb 8.8 L Hct 27.9 L MCHC RDW MCV MCH Lymph % (Auto) [place] % (Auto) [place] # Eos # Lymph # (Auto) [place] # (Auto) Eos # (Auto) Seg Neutrophils % Seg Neuts % (Manual) Baso # (Auto) Lymphocytes % (Manual) Monocytes % (Manual) Eosinophils % (Manual) Basophils % (Manual) Seg Neutrophils # Seg Neutrophils # Man Lymphocytes # (Manual) Monocytes # (Manual) Eosinophils # (Manual) Nucleated RBC % Basophils # (Manual) PT INR APTT Heparin Anti-Xa Level ABG pH POC ABG pO2 ABG pO2 ABG HCO3 ABG O2 Saturation ABG Base Excess POC ABG pCO2 ABG Hemoglobin ABG Oxyhemoglobin ABG Chloride ABG Glucose Oxyhemoglobin Sodium Potassium Chloride Carbon Dioxide BUN Creatinine Glucose POC Glucose 150 H 134 H Lactic Acid Calcium Phosphorus Magnesium AST ALT Lactate Dehydrogenase Total Bilirubin Direct Bilirubin CK-MB (CK-2) C-Reactive Protein NT-Pro-B Natriuret Pep Total Protein Albumin Arterial Blood Glucose Urine WBC (Auto) Urine Creatinine 12/16/19 12/16/19 12/16/19 05:46 05:46 11:44 WBC RBC Hgb Hct MCHC RDW MCV MCH Lymph % (Auto) [place] % (Auto) [place] # Eos # Lymph # (Auto) [place] # (Auto) Eos # (Auto) Seg Neutrophils % Seg Neuts % (Manual) Baso # (Auto) Lymphocytes % (Manual) Monocytes % (Manual) Eosinophils % (Manual) Basophils % (Manual) Seg Neutrophils # Seg Neutrophils # Man Lymphocytes # (Manual) Monocytes # (Manual) Eosinophils # (Manual) Nucleated RBC % Basophils # (Manual) PT INR APTT Heparin Anti-Xa Level 0.20 L ABG pH POC ABG pO2 ABG pO2 ABG HCO3 ABG O2 Saturation ABG Base Excess POC ABG pCO2 ABG Hemoglobin ABG Oxyhemoglobin ABG Chloride ABG Glucose Oxyhemoglobin Sodium Potassium Chloride Carbon Dioxide 31 H BUN Creatinine 0.5 L Glucose 147 H POC Glucose 164 H Lactic Acid Calcium Phosphorus Magnesium AST ALT Lactate Dehydrogenase Total Bilirubin Direct Bilirubin CK-MB (CK-2) C-Reactive Protein NT-Pro-B Natriuret Pep Total Protein Albumin Arterial Blood Glucose Urine WBC (Auto) Urine Creatinine 12/16/19 12/16/19 12/17/19 17:17 23:49 05:30 WBC 13.9 H RBC 3.27 L Hgb 9.4 L Hct 29.2 L MCHC RDW 16.0 H MCV MCH Lymph % (Auto) [place] % (Auto) 8.8 H [place] # Eos # Lymph # (Auto) [place] # (Auto) 1.2 H Eos # (Auto) 0.5 H Seg Neutrophils % 70.5 H Seg Neuts % (Manual) Baso # (Auto) 0.2 H Lymphocytes % (Manual) Monocytes % (Manual) Eosinophils % (Manual) Basophils % (Manual) Seg Neutrophils # 9.8 H Seg Neutrophils # Man Lymphocytes # (Manual) Monocytes # (Manual) Eosinophils # (Manual) Nucleated RBC % Basophils # (Manual) PT INR APTT Heparin Anti-Xa Level ABG pH POC ABG pO2 ABG pO2 ABG HCO3 ABG O2 Saturation ABG Base Excess POC ABG pCO2 ABG Hemoglobin ABG Oxyhemoglobin ABG Chloride ABG Glucose Oxyhemoglobin Sodium Potassium Chloride Carbon Dioxide BUN Creatinine Glucose POC Glucose 162 H 144 H Lactic Acid Calcium Phosphorus Magnesium AST ALT Lactate Dehydrogenase Total Bilirubin Direct Bilirubin CK-MB (CK-2) C-Reactive Protein NT-Pro-B Natriuret Pep Total Protein Albumin Arterial Blood Glucose Urine WBC (Auto) Urine Creatinine 12/17/19 12/17/19 12/17/19 05:30 06:06 11:50 WBC RBC Hgb Hct MCHC RDW MCV MCH Lymph % (Auto) [place] % (Auto) [place] # Eos # Lymph # (Auto) [place] # (Auto) Eos # (Auto) Seg Neutrophils % Seg Neuts % (Manual) Baso # (Auto) Lymphocytes % (Manual) Monocytes % (Manual) Eosinophils % (Manual) Basophils % (Manual) Seg Neutrophils # Seg Neutrophils # Man Lymphocytes # (Manual) Monocytes # (Manual) Eosinophils # (Manual) Nucleated RBC % Basophils # (Manual) PT INR APTT Heparin Anti-Xa Level ABG pH POC ABG pO2 ABG pO2 ABG HCO3 ABG O2 Saturation ABG Base Excess POC ABG pCO2 ABG Hemoglobin ABG Oxyhemoglobin ABG Chloride ABG Glucose Oxyhemoglobin Sodium Potassium Chloride 97.4 L Carbon Dioxide 32 H BUN Creatinine 0.5 L Glucose 135 H POC Glucose 151 H 140 H Lactic Acid Calcium Phosphorus Magnesium AST ALT Lactate Dehydrogenase Total Bilirubin Direct Bilirubin CK-MB (CK-2) C-Reactive Protein NT-Pro-B Natriuret Pep Total Protein Albumin Arterial Blood Glucose Urine WBC (Auto) Urine Creatinine 12/17/19 12/17/19 12/18/19 17:50 23:46 05:17 WBC RBC Hgb 8.8 L Hct 28.0 L MCHC RDW MCV MCH Lymph % (Auto) [place] % (Auto) [place] # Eos # Lymph # (Auto) [place] # (Auto) Eos # (Auto) Seg Neutrophils % Seg Neuts % (Manual) Baso # (Auto) Lymphocytes % (Manual) Monocytes % (Manual) Eosinophils % (Manual) Basophils % (Manual) Seg Neutrophils # Seg Neutrophils # Man Lymphocytes # (Manual) Monocytes # (Manual) Eosinophils # (Manual) Nucleated RBC % Basophils # (Manual) PT INR APTT Heparin Anti-Xa Level ABG pH POC ABG pO2 ABG pO2 ABG HCO3 ABG O2 Saturation ABG Base Excess POC ABG pCO2 ABG Hemoglobin ABG Oxyhemoglobin ABG Chloride ABG Glucose Oxyhemoglobin Sodium Potassium Chloride Carbon Dioxide BUN Creatinine Glucose POC Glucose 158 H 150 H Lactic Acid Calcium Phosphorus Magnesium AST ALT Lactate Dehydrogenase Total Bilirubin Direct Bilirubin CK-MB (CK-2) C-Reactive Protein NT-Pro-B Natriuret Pep Total Protein Albumin Arterial Blood Glucose Urine WBC (Auto) Urine Creatinine 12/18/19 12/18/19 12/18/19 05:17 05:49 11:12 WBC RBC Hgb Hct MCHC RDW MCV MCH Lymph % (Auto) [place] % (Auto) [place] # Eos # Lymph # (Auto) [place] # (Auto) Eos # (Auto) Seg Neutrophils % Seg Neuts % (Manual) Baso # (Auto) Lymphocytes % (Manual) Monocytes % (Manual) Eosinophils % (Manual) Basophils % (Manual) Seg Neutrophils # Seg Neutrophils # Man Lymphocytes # (Manual) Monocytes # (Manual) Eosinophils # (Manual) Nucleated RBC % Basophils # (Manual) PT INR APTT Heparin Anti-Xa Level 0.16 L ABG pH POC ABG pO2 ABG pO2 ABG HCO3 ABG O2 Saturation ABG Base Excess POC ABG pCO2 ABG Hemoglobin ABG Oxyhemoglobin ABG Chloride ABG Glucose Oxyhemoglobin Sodium Potassium Chloride Carbon Dioxide BUN Creatinine Glucose POC Glucose 127 H 191 H Lactic Acid Calcium Phosphorus Magnesium AST ALT Lactate Dehydrogenase Total Bilirubin Direct Bilirubin CK-MB (CK-2) C-Reactive Protein NT-Pro-B Natriuret Pep Total Protein Albumin Arterial Blood Glucose Urine WBC (Auto) Urine Creatinine 12/18/19 12/18/19 12/19/19 17:03 20:16 00:08 WBC RBC Hgb Hct MCHC RDW MCV MCH Lymph % (Auto) [place] % (Auto) [place] # Eos # Lymph # (Auto) [place] # (Auto) Eos # (Auto) Seg Neutrophils % Seg Neuts % (Manual) Baso # (Auto) Lymphocytes % (Manual) Monocytes % (Manual) Eosinophils % (Manual) Basophils % (Manual) Seg Neutrophils # Seg Neutrophils # Man Lymphocytes # (Manual) Monocytes # (Manual) Eosinophils # (Manual) Nucleated RBC % Basophils # (Manual) PT INR APTT Heparin Anti-Xa Level ABG pH POC ABG pO2 ABG pO2 ABG HCO3 ABG O2 Saturation ABG Base Excess POC ABG pCO2 ABG Hemoglobin ABG Oxyhemoglobin ABG Chloride ABG Glucose Oxyhemoglobin Sodium Potassium Chloride Carbon Dioxide BUN Creatinine Glucose POC Glucose 133 H 128 H 129 H Lactic Acid Calcium Phosphorus Magnesium AST ALT Lactate Dehydrogenase Total Bilirubin Direct Bilirubin CK-MB (CK-2) C-Reactive Protein NT-Pro-B Natriuret Pep Total Protein Albumin Arterial Blood Glucose Urine WBC (Auto) Urine Creatinine 12/19/19 12/19/19 12/19/19 04:45 04:45 05:35 WBC RBC Hgb Hct MCHC RDW MCV MCH Lymph % (Auto) [place] % (Auto) [place] # Eos # Lymph # (Auto) [place] # (Auto) Eos # (Auto) Seg Neutrophils % Seg Neuts % (Manual) Baso # (Auto) Lymphocytes % (Manual) Monocytes % (Manual) Eosinophils % (Manual) Basophils % (Manual) Seg Neutrophils # Seg Neutrophils # Man Lymphocytes # (Manual) Monocytes # (Manual) Eosinophils # (Manual) Nucleated RBC % Basophils # (Manual) PT INR APTT Heparin Anti-Xa Level 0.17 L ABG pH POC ABG pO2 ABG pO2 ABG HCO3 ABG O2 Saturation ABG Base Excess POC ABG pCO2 ABG Hemoglobin ABG Oxyhemoglobin ABG Chloride ABG Glucose Oxyhemoglobin Sodium Potassium Chloride Carbon Dioxide BUN Creatinine Glucose POC Glucose 120 H Lactic Acid Calcium Phosphorus Magnesium AST ALT Lactate Dehydrogenase 228 H Total Bilirubin Direct Bilirubin CK-MB (CK-2) C-Reactive Protein NT-Pro-B Natriuret Pep Total Protein Albumin Arterial Blood Glucose Urine WBC (Auto) Urine Creatinine 12/19/19 12/19/19 12/19/19 09:20 11:32 11:32 WBC 14.6 H RBC 3.08 L Hgb 9.0 L Hct 26.8 L MCHC RDW 15.9 H MCV MCH Lymph % (Auto) [place] % (Auto) [place] # Eos # Lymph # (Auto) [place] # (Auto) Eos # (Auto) Seg Neutrophils % Seg Neuts % (Manual) 82.0 H Baso # (Auto) Lymphocytes % (Manual) 10.0 L Monocytes % (Manual) Eosinophils % (Manual) Basophils % (Manual) Seg Neutrophils # Seg Neutrophils # Man 12.0 H Lymphocytes # (Manual) Monocytes # (Manual) 0.9 H Eosinophils # (Manual) Nucleated RBC % 1.0 H Basophils # (Manual) PT INR APTT Heparin Anti-Xa Level ABG pH 7.451 H POC ABG pO2 ABG pO2 62.6 L ABG HCO3 33.2 H ABG O2 Saturation 93.8 L ABG Base Excess 8.3 H POC ABG pCO2 ABG Hemoglobin 8.3 L ABG Oxyhemoglobin ABG Chloride ABG Glucose Oxyhemoglobin 91.9 L Sodium Potassium Chloride 95.0 L Carbon Dioxide 33 H BUN 22 H Creatinine 0.6 L Glucose 150 H POC Glucose Lactic Acid Calcium Phosphorus Magnesium AST ALT Lactate Dehydrogenase Total Bilirubin Direct Bilirubin CK-MB (CK-2) C-Reactive Protein NT-Pro-B Natriuret Pep Total Protein 6.2 L Albumin 2.4 L Arterial Blood Glucose Urine WBC (Auto) Urine Creatinine 12/19/19 12/19/19 12/20/19 11:56 18:17 00:09 WBC RBC Hgb Hct MCHC RDW MCV MCH Lymph % (Auto) [place] % (Auto) [place] # Eos # Lymph # (Auto) [place] # (Auto) Eos # (Auto) Seg Neutrophils % Seg Neuts % (Manual) Baso # (Auto) Lymphocytes % (Manual) Monocytes % (Manual) Eosinophils % (Manual) Basophils % (Manual) Seg Neutrophils # Seg Neutrophils # Man Lymphocytes # (Manual) Monocytes # (Manual) Eosinophils # (Manual) Nucleated RBC % Basophils # (Manual) PT INR APTT Heparin Anti-Xa Level ABG pH POC ABG pO2 ABG pO2 ABG HCO3 ABG O2 Saturation ABG Base Excess POC ABG pCO2 ABG Hemoglobin ABG Oxyhemoglobin ABG Chloride ABG Glucose Oxyhemoglobin Sodium Potassium Chloride Carbon Dioxide BUN Creatinine Glucose POC Glucose 156 H 156 H 155 H Lactic Acid Calcium Phosphorus Magnesium AST ALT Lactate Dehydrogenase Total Bilirubin Direct Bilirubin CK-MB (CK-2) C-Reactive Protein NT-Pro-B Natriuret Pep Total Protein Albumin Arterial Blood Glucose Urine WBC (Auto) Urine Creatinine 12/20/19 12/20/19 12/20/19 05:26 06:02 18:17 WBC RBC Hgb Hct MCHC RDW MCV MCH Lymph % (Auto) [place] % (Auto) [place] # Eos # Lymph # (Auto) [place] # (Auto) Eos # (Auto) Seg Neutrophils % Seg Neuts % (Manual) Baso # (Auto) Lymphocytes % (Manual) Monocytes % (Manual) Eosinophils % (Manual) Basophils % (Manual) Seg Neutrophils # Seg Neutrophils # Man Lymphocytes # (Manual) Monocytes # (Manual) Eosinophils # (Manual) Nucleated RBC % Basophils # (Manual) PT INR APTT Heparin Anti-Xa Level 0.19 L ABG pH POC ABG pO2 ABG pO2 ABG HCO3 ABG O2 Saturation ABG Base Excess POC ABG pCO2 ABG Hemoglobin ABG Oxyhemoglobin ABG Chloride ABG Glucose Oxyhemoglobin Sodium Potassium Chloride Carbon Dioxide BUN Creatinine Glucose POC Glucose 137 H 128 H Lactic Acid Calcium Phosphorus Magnesium AST ALT Lactate Dehydrogenase Total Bilirubin Direct Bilirubin CK-MB (CK-2) C-Reactive Protein NT-Pro-B Natriuret Pep Total Protein Albumin Arterial Blood Glucose Urine WBC (Auto) Urine Creatinine 12/20/19 12/21/19 12/21/19 23:34 05:31 05:31 WBC 12.7 H RBC 3.09 L Hgb 8.9 L Hct 27.4 L MCHC RDW 15.8 H MCV MCH Lymph % (Auto) 12.1 L [place] % (Auto) 7.8 H [place] # Eos # Lymph # (Auto) [place] # (Auto) 1.0 H Eos # (Auto) Seg Neutrophils % 77.1 H Seg Neuts % (Manual) Baso # (Auto) Lymphocytes % (Manual) Monocytes % (Manual) Eosinophils % (Manual) Basophils % (Manual) Seg Neutrophils # 9.8 H Seg Neutrophils # Man Lymphocytes # (Manual) Monocytes # (Manual) Eosinophils # (Manual) Nucleated RBC % Basophils # (Manual) PT INR APTT Heparin Anti-Xa Level ABG pH POC ABG pO2 ABG pO2 ABG HCO3 ABG O2 Saturation ABG Base Excess POC ABG pCO2 ABG Hemoglobin ABG Oxyhemoglobin ABG Chloride ABG Glucose Oxyhemoglobin Sodium Potassium Chloride 96.9 L Carbon Dioxide 37 H BUN 27 H Creatinine 0.7 L Glucose 140 H POC Glucose 145 H Lactic Acid Calcium Phosphorus Magnesium AST ALT Lactate Dehydrogenase Total Bilirubin Direct Bilirubin CK-MB (CK-2) C-Reactive Protein NT-Pro-B Natriuret Pep Total Protein Albumin Arterial Blood Glucose Urine WBC (Auto) Urine Creatinine 12/21/19 12/21/19 12/21/19 05:38 10:13 11:51 WBC RBC Hgb Hct MCHC RDW MCV MCH Lymph % (Auto) [place] % (Auto) [place] # Eos # Lymph # (Auto) [place] # (Auto) Eos # (Auto) Seg Neutrophils % Seg Neuts % (Manual) Baso # (Auto) Lymphocytes % (Manual) Monocytes % (Manual) Eosinophils % (Manual) Basophils % (Manual) Seg Neutrophils # Seg Neutrophils # Man Lymphocytes # (Manual) Monocytes # (Manual) Eosinophils # (Manual) Nucleated RBC % Basophils # (Manual) PT INR APTT 23.9 L Heparin Anti-Xa Level < 0.10 L ABG pH POC ABG pO2 ABG pO2 ABG HCO3 ABG O2 Saturation ABG Base Excess POC ABG pCO2 ABG Hemoglobin ABG Oxyhemoglobin ABG Chloride ABG Glucose Oxyhemoglobin Sodium Potassium Chloride Carbon Dioxide BUN Creatinine Glucose POC Glucose 151 H 145 H Lactic Acid Calcium Phosphorus Magnesium AST ALT Lactate Dehydrogenase Total Bilirubin Direct Bilirubin CK-MB (CK-2) C-Reactive Protein NT-Pro-B Natriuret Pep Total Protein Albumin Arterial Blood Glucose Urine WBC (Auto) Urine Creatinine 12/21/19 12/22/19 12/22/19 17:16 00:01 01:33 WBC RBC Hgb Hct MCHC RDW MCV MCH Lymph % (Auto) [place] % (Auto) [place] # Eos # Lymph # (Auto) [place] # (Auto) Eos # (Auto) Seg Neutrophils % Seg Neuts % (Manual) Baso # (Auto) Lymphocytes % (Manual) Monocytes % (Manual) Eosinophils % (Manual) Basophils % (Manual) Seg Neutrophils # Seg Neutrophils # Man Lymphocytes # (Manual) Monocytes # (Manual) Eosinophils # (Manual) Nucleated RBC % Basophils # (Manual) PT INR APTT Heparin Anti-Xa Level 0.10 L ABG pH POC ABG pO2 ABG pO2 ABG HCO3 ABG O2 Saturation ABG Base Excess POC ABG pCO2 ABG Hemoglobin ABG Oxyhemoglobin ABG Chloride ABG Glucose Oxyhemoglobin Sodium Potassium Chloride Carbon Dioxide BUN Creatinine Glucose POC Glucose 167 H 179 H Lactic Acid Calcium Phosphorus Magnesium AST ALT Lactate Dehydrogenase Total Bilirubin Direct Bilirubin CK-MB (CK-2) C-Reactive Protein NT-Pro-B Natriuret Pep Total Protein Albumin Arterial Blood Glucose Urine WBC (Auto) Urine Creatinine 12/22/19 12/22/19 12/22/19 03:22 05:10 05:10 WBC 13.8 H RBC 3.20 L Hgb 8.9 L Hct 28.1 L MCHC RDW 15.9 H MCV MCH Lymph % (Auto) [place] % (Auto) [place] # Eos # Lymph # (Auto) [place] # (Auto) Eos # (Auto) Seg Neutrophils % Seg Neuts % (Manual) Baso # (Auto) Lymphocytes % (Manual) Monocytes % (Manual) Eosinophils % (Manual) Basophils % (Manual) Seg Neutrophils # Seg Neutrophils # Man Lymphocytes # (Manual) Monocytes # (Manual) Eosinophils # (Manual) Nucleated RBC % Basophils # (Manual) PT INR APTT Heparin Anti-Xa Level ABG pH POC ABG pO2 52.3 L ABG pO2 ABG HCO3 ABG O2 Saturation ABG Base Excess POC ABG pCO2 52.9 H ABG Hemoglobin 10.7 L ABG Oxyhemoglobin 84 L ABG Chloride ABG Glucose Oxyhemoglobin Sodium Potassium Chloride 96.6 L Carbon Dioxide BUN 25 H Creatinine 0.7 L Glucose 129 H POC Glucose Lactic Acid Calcium Phosphorus Magnesium AST ALT Lactate Dehydrogenase Total Bilirubin Direct Bilirubin CK-MB (CK-2) C-Reactive Protein NT-Pro-B Natriuret Pep Total Protein Albumin Arterial Blood Glucose Urine WBC (Auto) Urine Creatinine 12/22/19 12/22/19 12/22/19 05:18 12:32 12:43 WBC RBC Hgb Hct MCHC RDW MCV MCH Lymph % (Auto) [place] % (Auto) [place] # Eos # Lymph # (Auto) [place] # (Auto) Eos # (Auto) Seg Neutrophils % Seg Neuts % (Manual) Baso # (Auto) Lymphocytes % (Manual) Monocytes % (Manual) Eosinophils % (Manual) Basophils % (Manual) Seg Neutrophils # Seg Neutrophils # Man Lymphocytes # (Manual) Monocytes # (Manual) Eosinophils # (Manual) Nucleated RBC % Basophils # (Manual) PT INR APTT Heparin Anti-Xa Level 0.18 L ABG pH POC ABG pO2 ABG pO2 ABG HCO3 ABG O2 Saturation ABG Base Excess POC ABG pCO2 ABG Hemoglobin ABG Oxyhemoglobin ABG Chloride ABG Glucose Oxyhemoglobin Sodium Potassium Chloride Carbon Dioxide BUN Creatinine Glucose POC Glucose 131 H 208 H Lactic Acid Calcium Phosphorus Magnesium AST ALT Lactate Dehydrogenase Total Bilirubin Direct Bilirubin CK-MB (CK-2) C-Reactive Protein NT-Pro-B Natriuret Pep Total Protein Albumin Arterial Blood Glucose Urine WBC (Auto) Urine Creatinine 12/22/19 12/22/19 12/23/19 17:44 23:20 03:51 WBC 15.2 H RBC 3.43 L Hgb 9.6 L Hct 30.3 L MCHC RDW 15.9 H MCV MCH Lymph % (Auto) [place] % (Auto) [place] # Eos # Lymph # (Auto) [place] # (Auto) Eos # (Auto) Seg Neutrophils % Seg Neuts % (Manual) Baso # (Auto) Lymphocytes % (Manual) Monocytes % (Manual) Eosinophils % (Manual) Basophils % (Manual) Seg Neutrophils # Seg Neutrophils # Man Lymphocytes # (Manual) Monocytes # (Manual) Eosinophils # (Manual) Nucleated RBC % Basophils # (Manual) PT INR APTT Heparin Anti-Xa Level ABG pH POC ABG pO2 ABG pO2 ABG HCO3 ABG O2 Saturation ABG Base Excess POC ABG pCO2 ABG Hemoglobin ABG Oxyhemoglobin ABG Chloride ABG Glucose Oxyhemoglobin Sodium Potassium Chloride Carbon Dioxide BUN Creatinine Glucose POC Glucose 209 H 119 H Lactic Acid Calcium Phosphorus Magnesium AST ALT Lactate Dehydrogenase Total Bilirubin Direct Bilirubin CK-MB (CK-2) C-Reactive Protein NT-Pro-B Natriuret Pep Total Protein Albumin Arterial Blood Glucose Urine WBC (Auto) Urine Creatinine 12/23/19 12/23/19 12/23/19 03:51 05:31 12:09 WBC RBC Hgb Hct MCHC RDW MCV MCH Lymph % (Auto) [place] % (Auto) [place] # Eos # Lymph # (Auto) [place] # (Auto) Eos # (Auto) Seg Neutrophils % Seg Neuts % (Manual) Baso # (Auto) Lymphocytes % (Manual) Monocytes % (Manual) Eosinophils % (Manual) Basophils % (Manual) Seg Neutrophils # Seg Neutrophils # Man Lymphocytes # (Manual) Monocytes # (Manual) Eosinophils # (Manual) Nucleated RBC % Basophils # (Manual) PT INR APTT Heparin Anti-Xa Level ABG pH POC ABG pO2 ABG pO2 ABG HCO3 ABG O2 Saturation ABG Base Excess POC ABG pCO2 ABG Hemoglobin ABG Oxyhemoglobin ABG Chloride ABG Glucose Oxyhemoglobin Sodium Potassium Chloride 97.2 L Carbon Dioxide 31 H BUN 23 H Creatinine 0.6 L Glucose 153 H POC Glucose 149 H 144 H Lactic Acid Calcium Phosphorus Magnesium AST ALT Lactate Dehydrogenase Total Bilirubin Direct Bilirubin CK-MB (CK-2) C-Reactive Protein NT-Pro-B Natriuret Pep Total Protein Albumin Arterial Blood Glucose Urine WBC (Auto) Urine Creatinine 12/23/19 12/23/19 12/23/19 15:30 17:49 23:31 WBC RBC Hgb Hct MCHC RDW MCV MCH Lymph % (Auto) [place] % (Auto) [place] # Eos # Lymph # (Auto) [place] # (Auto) Eos # (Auto) Seg Neutrophils % Seg Neuts % (Manual) Baso # (Auto) Lymphocytes % (Manual) Monocytes % (Manual) Eosinophils % (Manual) Basophils % (Manual) Seg Neutrophils # Seg Neutrophils # Man Lymphocytes # (Manual) Monocytes # (Manual) Eosinophils # (Manual) Nucleated RBC % Basophils # (Manual) PT INR APTT Heparin Anti-Xa Level 0.21 L ABG pH POC ABG pO2 ABG pO2 ABG HCO3 ABG O2 Saturation ABG Base Excess POC ABG pCO2 ABG Hemoglobin ABG Oxyhemoglobin ABG Chloride ABG Glucose Oxyhemoglobin Sodium Potassium Chloride Carbon Dioxide BUN Creatinine Glucose POC Glucose 192 H 151 H Lactic Acid Calcium Phosphorus Magnesium AST ALT Lactate Dehydrogenase Total Bilirubin Direct Bilirubin CK-MB (CK-2) C-Reactive Protein NT-Pro-B Natriuret Pep Total Protein Albumin Arterial Blood Glucose Urine WBC (Auto) Urine Creatinine 12/24/19 12/24/19 12/24/19 05:34 12:13 16:50 WBC RBC Hgb Hct MCHC RDW MCV MCH Lymph % (Auto) [place] % (Auto) [place] # Eos # Lymph # (Auto) [place] # (Auto) Eos # (Auto) Seg Neutrophils % Seg Neuts % (Manual) Baso # (Auto) Lymphocytes % (Manual) Monocytes % (Manual) Eosinophils % (Manual) Basophils % (Manual) Seg Neutrophils # Seg Neutrophils # Man Lymphocytes # (Manual) Monocytes # (Manual) Eosinophils # (Manual) Nucleated RBC % Basophils # (Manual) PT INR APTT Heparin Anti-Xa Level 0.16 L ABG pH POC ABG pO2 ABG pO2 ABG HCO3 ABG O2 Saturation ABG Base Excess POC ABG pCO2 ABG Hemoglobin ABG Oxyhemoglobin ABG Chloride ABG Glucose Oxyhemoglobin Sodium Potassium Chloride Carbon Dioxide BUN Creatinine Glucose POC Glucose 145 H 124 H Lactic Acid Calcium Phosphorus Magnesium AST ALT Lactate Dehydrogenase Total Bilirubin Direct Bilirubin CK-MB (CK-2) C-Reactive Protein NT-Pro-B Natriuret Pep Total Protein Albumin Arterial Blood Glucose Urine WBC (Auto) Urine Creatinine 12/24/19 12/25/19 12/25/19 17:53 00:14 04:18 WBC 12.9 H RBC 3.30 L Hgb 9.1 L Hct 28.8 L MCHC RDW 16.4 H MCV MCH Lymph % (Auto) [place] % (Auto) 7.8 H [place] # Eos # Lymph # (Auto) [place] # (Auto) 1.0 H Eos # (Auto) Seg Neutrophils % 75.5 H Seg Neuts % (Manual) Baso # (Auto) Lymphocytes % (Manual) Monocytes % (Manual) Eosinophils % (Manual) Basophils % (Manual) Seg Neutrophils # 9.7 H Seg Neutrophils # Man Lymphocytes # (Manual) Monocytes # (Manual) Eosinophils # (Manual) Nucleated RBC % Basophils # (Manual) PT INR APTT Heparin Anti-Xa Level ABG pH POC ABG pO2 ABG pO2 ABG HCO3 ABG O2 Saturation ABG Base Excess POC ABG pCO2 ABG Hemoglobin ABG Oxyhemoglobin ABG Chloride ABG Glucose Oxyhemoglobin Sodium Potassium Chloride Carbon Dioxide BUN Creatinine Glucose POC Glucose 164 H 148 H Lactic Acid Calcium Phosphorus Magnesium AST ALT Lactate Dehydrogenase Total Bilirubin Direct Bilirubin CK-MB (CK-2) C-Reactive Protein NT-Pro-B Natriuret Pep Total Protein Albumin Arterial Blood Glucose Urine WBC (Auto) Urine Creatinine 12/25/19 12/25/19 12/25/19 04:18 05:38 11:44 WBC RBC Hgb Hct MCHC RDW MCV MCH Lymph % (Auto) [place] % (Auto) [place] # Eos # Lymph # (Auto) [place] # (Auto) Eos # (Auto) Seg Neutrophils % Seg Neuts % (Manual) Baso # (Auto) Lymphocytes % (Manual) Monocytes % (Manual) Eosinophils % (Manual) Basophils % (Manual) Seg Neutrophils # Seg Neutrophils # Man Lymphocytes # (Manual) Monocytes # (Manual) Eosinophils # (Manual) Nucleated RBC % Basophils # (Manual) PT INR APTT Heparin Anti-Xa Level ABG pH POC ABG pO2 ABG pO2 ABG HCO3 ABG O2 Saturation ABG Base Excess POC ABG pCO2 ABG Hemoglobin ABG Oxyhemoglobin ABG Chloride ABG Glucose Oxyhemoglobin Sodium Potassium Chloride Carbon Dioxide 33 H BUN 27 H Creatinine 0.6 L Glucose 132 H POC Glucose 152 H 166 H Lactic Acid Calcium Phosphorus Magnesium AST ALT Lactate Dehydrogenase Total Bilirubin Direct Bilirubin CK-MB (CK-2) C-Reactive Protein NT-Pro-B Natriuret Pep Total Protein Albumin Arterial Blood Glucose Urine WBC (Auto) Urine Creatinine 12/25/19 12/26/19 12/26/19 18:29 00:17 00:18 WBC RBC Hgb Hct MCHC RDW MCV MCH Lymph % (Auto) [place] % (Auto) [place] # Eos # Lymph # (Auto) [place] # (Auto) Eos # (Auto) Seg Neutrophils % Seg Neuts % (Manual) Baso # (Auto) Lymphocytes % (Manual) Monocytes % (Manual) Eosinophils % (Manual) Basophils % (Manual) Seg Neutrophils # Seg Neutrophils # Man Lymphocytes # (Manual) Monocytes # (Manual) Eosinophils # (Manual) Nucleated RBC % Basophils # (Manual) PT INR APTT Heparin Anti-Xa Level ABG pH POC ABG pO2 ABG pO2 ABG HCO3 ABG O2 Saturation ABG Base Excess POC ABG pCO2 ABG Hemoglobin ABG Oxyhemoglobin ABG Chloride ABG Glucose Oxyhemoglobin Sodium Potassium Chloride 97.8 L Carbon Dioxide BUN 25 H Creatinine 0.6 L Glucose 140 H POC Glucose 194 H 151 H Lactic Acid Calcium Phosphorus Magnesium AST ALT Lactate Dehydrogenase Total Bilirubin Direct Bilirubin CK-MB (CK-2) C-Reactive Protein NT-Pro-B Natriuret Pep Total Protein Albumin Arterial Blood Glucose Urine WBC (Auto) Urine Creatinine 12/26/19 12/26/19 12/26/19 05:36 11:41 17:50 WBC RBC Hgb Hct MCHC RDW MCV MCH Lymph % (Auto) [place] % (Auto) [place] # Eos # Lymph # (Auto) [place] # (Auto) Eos # (Auto) Seg Neutrophils % Seg Neuts % (Manual) Baso # (Auto) Lymphocytes % (Manual) Monocytes % (Manual) Eosinophils % (Manual) Basophils % (Manual) Seg Neutrophils # Seg Neutrophils # Man Lymphocytes # (Manual) Monocytes # (Manual) Eosinophils # (Manual) Nucleated RBC % Basophils # (Manual) PT INR APTT Heparin Anti-Xa Level ABG pH POC ABG pO2 ABG pO2 ABG HCO3 ABG O2 Saturation ABG Base Excess POC ABG pCO2 ABG Hemoglobin ABG Oxyhemoglobin ABG Chloride ABG Glucose Oxyhemoglobin Sodium Potassium Chloride Carbon Dioxide BUN Creatinine Glucose POC Glucose 156 H 148 H 139 H Lactic Acid Calcium Phosphorus Magnesium AST ALT Lactate Dehydrogenase Total Bilirubin Direct Bilirubin CK-MB (CK-2) C-Reactive Protein NT-Pro-B Natriuret Pep Total Protein Albumin Arterial Blood Glucose Urine WBC (Auto) Urine Creatinine 12/26/19 12/27/19 12/27/19 23:19 05:34 12:02 WBC RBC Hgb Hct MCHC RDW MCV MCH Lymph % (Auto) [place] % (Auto) [place] # Eos # Lymph # (Auto) [place] # (Auto) Eos # (Auto) Seg Neutrophils % Seg Neuts % (Manual) Baso # (Auto) Lymphocytes % (Manual) Monocytes % (Manual) Eosinophils % (Manual) Basophils % (Manual) Seg Neutrophils # Seg Neutrophils # Man Lymphocytes # (Manual) Monocytes # (Manual) Eosinophils # (Manual) Nucleated RBC % Basophils # (Manual) PT INR APTT Heparin Anti-Xa Level ABG pH POC ABG pO2 ABG pO2 ABG HCO3 ABG O2 Saturation ABG Base Excess POC ABG pCO2 ABG Hemoglobin ABG Oxyhemoglobin ABG Chloride ABG Glucose Oxyhemoglobin Sodium Potassium Chloride Carbon Dioxide BUN Creatinine Glucose POC Glucose 161 H 145 H 157 H Lactic Acid Calcium Phosphorus Magnesium AST ALT Lactate Dehydrogenase Total Bilirubin Direct Bilirubin CK-MB (CK-2) C-Reactive Protein NT-Pro-B Natriuret Pep Total Protein Albumin Arterial Blood Glucose Urine WBC (Auto) Urine Creatinine 12/27/19 12/27/19 12/27/19 17:35 20:11 23:00 WBC RBC Hgb Hct MCHC RDW MCV MCH Lymph % (Auto) [place] % (Auto) [place] # Eos # Lymph # (Auto) [place] # (Auto) Eos # (Auto) Seg Neutrophils % Seg Neuts % (Manual) Baso # (Auto) Lymphocytes % (Manual) Monocytes % (Manual) Eosinophils % (Manual) Basophils % (Manual) Seg Neutrophils # Seg Neutrophils # Man Lymphocytes # (Manual) Monocytes # (Manual) Eosinophils # (Manual) Nucleated RBC % Basophils # (Manual) PT INR APTT Heparin Anti-Xa Level 0.19 L ABG pH POC ABG pO2 ABG pO2 ABG HCO3 ABG O2 Saturation ABG Base Excess POC ABG pCO2 ABG Hemoglobin ABG Oxyhemoglobin ABG Chloride ABG Glucose Oxyhemoglobin Sodium Potassium Chloride Carbon Dioxide BUN Creatinine Glucose POC Glucose 158 H 155 H Lactic Acid Calcium Phosphorus Magnesium AST ALT Lactate Dehydrogenase Total Bilirubin Direct Bilirubin CK-MB (CK-2) C-Reactive Protein NT-Pro-B Natriuret Pep Total Protein Albumin Arterial Blood Glucose Urine WBC (Auto) Urine Creatinine 12/27/19 12/28/19 12/28/19 23:45 02:41 02:41 WBC 13.0 H RBC 3.48 L Hgb 9.5 L Hct 30.6 L MCHC 31 L RDW 16.6 H MCV MCH 27 L Lymph % (Auto) 13.0 L [place] % (Auto) 8.0 H [place] # Eos # Lymph # (Auto) [place] # (Auto) 1.0 H Eos # (Auto) Seg Neutrophils % 76.3 H Seg Neuts % (Manual) Baso # (Auto) Lymphocytes % (Manual) Monocytes % (Manual) Eosinophils % (Manual) Basophils % (Manual) Seg Neutrophils # 9.9 H Seg Neutrophils # Man Lymphocytes # (Manual) Monocytes # (Manual) Eosinophils # (Manual) Nucleated RBC % Basophils # (Manual) PT INR APTT Heparin Anti-Xa Level ABG pH POC ABG pO2 ABG pO2 ABG HCO3 ABG O2 Saturation ABG Base Excess POC ABG pCO2 ABG Hemoglobin ABG Oxyhemoglobin ABG Chloride ABG Glucose Oxyhemoglobin Sodium Potassium Chloride Carbon Dioxide BUN 22 H Creatinine 0.6 L Glucose 101 H POC Glucose 130 H Lactic Acid Calcium Phosphorus Magnesium AST ALT Lactate Dehydrogenase Total Bilirubin Direct Bilirubin CK-MB (CK-2) C-Reactive Protein NT-Pro-B Natriuret Pep Total Protein Albumin Arterial Blood Glucose Urine WBC (Auto) Urine Creatinine 12/28/19 12/28/19 12/28/19 06:00 12:34 18:13 WBC RBC Hgb Hct MCHC RDW MCV MCH Lymph % (Auto) [place] % (Auto) [place] # Eos # Lymph # (Auto) [place] # (Auto) Eos # (Auto) Seg Neutrophils % Seg Neuts % (Manual) Baso # (Auto) Lymphocytes % (Manual) Monocytes % (Manual) Eosinophils % (Manual) Basophils % (Manual) Seg Neutrophils # Seg Neutrophils # Man Lymphocytes # (Manual) Monocytes # (Manual) Eosinophils # (Manual) Nucleated RBC % Basophils # (Manual) PT INR APTT Heparin Anti-Xa Level ABG pH POC ABG pO2 ABG pO2 ABG HCO3 ABG O2 Saturation ABG Base Excess POC ABG pCO2 ABG Hemoglobin ABG Oxyhemoglobin ABG Chloride ABG Glucose Oxyhemoglobin Sodium Potassium Chloride Carbon Dioxide BUN Creatinine Glucose POC Glucose 150 H 161 H 128 H Lactic Acid Calcium Phosphorus Magnesium AST ALT Lactate Dehydrogenase Total Bilirubin Direct Bilirubin CK-MB (CK-2) C-Reactive Protein NT-Pro-B Natriuret Pep Total Protein Albumin Arterial Blood Glucose Urine WBC (Auto) Urine Creatinine 12/28/19 12/29/19 12/29/19 23:36 05:21 11:40 WBC RBC Hgb Hct MCHC RDW MCV MCH Lymph % (Auto) [place] % (Auto) [place] # Eos # Lymph # (Auto) [place] # (Auto) Eos # (Auto) Seg Neutrophils % Seg Neuts % (Manual) Baso # (Auto) Lymphocytes % (Manual) Monocytes % (Manual) Eosinophils % (Manual) Basophils % (Manual) Seg Neutrophils # Seg Neutrophils # Man Lymphocytes # (Manual) Monocytes # (Manual) Eosinophils # (Manual) Nucleated RBC % Basophils # (Manual) PT INR APTT Heparin Anti-Xa Level ABG pH POC ABG pO2 ABG pO2 ABG HCO3 ABG O2 Saturation ABG Base Excess POC ABG pCO2 ABG Hemoglobin ABG Oxyhemoglobin ABG Chloride ABG Glucose Oxyhemoglobin Sodium Potassium Chloride Carbon Dioxide BUN Creatinine Glucose POC Glucose 137 H 136 H 166 H Lactic Acid Calcium Phosphorus Magnesium AST ALT Lactate Dehydrogenase Total Bilirubin Direct Bilirubin CK-MB (CK-2) C-Reactive Protein NT-Pro-B Natriuret Pep Total Protein Albumin Arterial Blood Glucose Urine WBC (Auto) Urine Creatinine 12/29/19 12/29/19 12/29/19 17:23 19:21 23:38 WBC RBC Hgb Hct MCHC RDW MCV MCH Lymph % (Auto) [place] % (Auto) [place] # Eos # Lymph # (Auto) [place] # (Auto) Eos # (Auto) Seg Neutrophils % Seg Neuts % (Manual) Baso # (Auto) Lymphocytes % (Manual) Monocytes % (Manual) Eosinophils % (Manual) Basophils % (Manual) Seg Neutrophils # Seg Neutrophils # Man Lymphocytes # (Manual) Monocytes # (Manual) Eosinophils # (Manual) Nucleated RBC % Basophils # (Manual) PT INR APTT Heparin Anti-Xa Level 0.20 L ABG pH POC ABG pO2 ABG pO2 ABG HCO3 ABG O2 Saturation ABG Base Excess POC ABG pCO2 ABG Hemoglobin ABG Oxyhemoglobin ABG Chloride ABG Glucose Oxyhemoglobin Sodium Potassium Chloride Carbon Dioxide BUN Creatinine Glucose POC Glucose 144 H 141 H Lactic Acid Calcium Phosphorus Magnesium AST ALT Lactate Dehydrogenase Total Bilirubin Direct Bilirubin CK-MB (CK-2) C-Reactive Protein NT-Pro-B Natriuret Pep Total Protein Albumin Arterial Blood Glucose Urine WBC (Auto) Urine Creatinine 12/30/19 12/30/19 12/30/19 03:58 03:58 04:59 WBC RBC 3.54 L Hgb 9.8 L Hct 30.7 L MCHC RDW 16.8 H MCV MCH Lymph % (Auto) [place] % (Auto) [place] # Eos # Lymph # (Auto) [place] # (Auto) Eos # (Auto) Seg Neutrophils % Seg Neuts % (Manual) Baso # (Auto) Lymphocytes % (Manual) Monocytes % (Manual) Eosinophils % (Manual) Basophils % (Manual) Seg Neutrophils # Seg Neutrophils # Man Lymphocytes # (Manual) Monocytes # (Manual) Eosinophils # (Manual) Nucleated RBC % Basophils # (Manual) PT INR APTT Heparin Anti-Xa Level ABG pH POC ABG pO2 ABG pO2 ABG HCO3 29.8 H ABG O2 Saturation ABG Base Excess 4.8 H POC ABG pCO2 ABG Hemoglobin 11.2 L ABG Oxyhemoglobin ABG Chloride ABG Glucose Oxyhemoglobin 93.8 L Sodium Potassium Chloride 97.8 L Carbon Dioxide BUN 26 H Creatinine Glucose 168 H POC Glucose Lactic Acid Calcium Phosphorus Magnesium AST ALT Lactate Dehydrogenase Total Bilirubin Direct Bilirubin CK-MB (CK-2) C-Reactive Protein NT-Pro-B Natriuret Pep Total Protein Albumin Arterial Blood Glucose Urine WBC (Auto) Urine Creatinine 12/30/19 12/30/19 12/30/19 05:45 11:34 17:28 WBC RBC Hgb Hct MCHC RDW MCV MCH Lymph % (Auto) [place] % (Auto) [place] # Eos # Lymph # (Auto) [place] # (Auto) Eos # (Auto) Seg Neutrophils % Seg Neuts % (Manual) Baso # (Auto) Lymphocytes % (Manual) Monocytes % (Manual) Eosinophils % (Manual) Basophils % (Manual) Seg Neutrophils # Seg Neutrophils # Man Lymphocytes # (Manual) Monocytes # (Manual) Eosinophils # (Manual) Nucleated RBC % Basophils # (Manual) PT INR APTT Heparin Anti-Xa Level ABG pH POC ABG pO2 ABG pO2 ABG HCO3 ABG O2 Saturation ABG Base Excess POC ABG pCO2 ABG Hemoglobin ABG Oxyhemoglobin ABG Chloride ABG Glucose Oxyhemoglobin Sodium Potassium Chloride Carbon Dioxide BUN Creatinine Glucose POC Glucose 163 H 180 H 150 H Lactic Acid Calcium Phosphorus Magnesium AST ALT Lactate Dehydrogenase Total Bilirubin Direct Bilirubin CK-MB (CK-2) C-Reactive Protein NT-Pro-B Natriuret Pep Total Protein Albumin Arterial Blood Glucose Urine WBC (Auto) Urine Creatinine 12/30/19 12/31/19 12/31/19 23:43 04:55 05:07 WBC RBC Hgb Hct MCHC RDW MCV MCH Lymph % (Auto) [place] % (Auto) [place] # Eos # Lymph # (Auto) [place] # (Auto) Eos # (Auto) Seg Neutrophils % Seg Neuts % (Manual) Baso # (Auto) Lymphocytes % (Manual) Monocytes % (Manual) Eosinophils % (Manual) Basophils % (Manual) Seg Neutrophils # Seg Neutrophils # Man Lymphocytes # (Manual) Monocytes # (Manual) Eosinophils # (Manual) Nucleated RBC % Basophils # (Manual) PT INR APTT Heparin Anti-Xa Level ABG pH POC ABG pO2 ABG pO2 ABG HCO3 ABG O2 Saturation ABG Base Excess POC ABG pCO2 ABG Hemoglobin ABG Oxyhemoglobin ABG Chloride ABG Glucose Oxyhemoglobin Sodium Potassium 5.6 H D Chloride Carbon Dioxide BUN 33 H Creatinine Glucose 131 H POC Glucose 142 H 134 H Lactic Acid Calcium Phosphorus Magnesium AST ALT Lactate Dehydrogenase Total Bilirubin Direct Bilirubin CK-MB (CK-2) C-Reactive Protein NT-Pro-B Natriuret Pep Total Protein Albumin Arterial Blood Glucose Urine WBC (Auto) Urine Creatinine 12/31/19 12/31/19 12/31/19 11:30 17:19 17:36 WBC RBC Hgb Hct MCHC RDW MCV MCH Lymph % (Auto) [place] % (Auto) [place] # Eos # Lymph # (Auto) [place] # (Auto) Eos # (Auto) Seg Neutrophils % Seg Neuts % (Manual) Baso # (Auto) Lymphocytes % (Manual) Monocytes % (Manual) Eosinophils % (Manual) Basophils % (Manual) Seg Neutrophils # Seg Neutrophils # Man Lymphocytes # (Manual) Monocytes # (Manual) Eosinophils # (Manual) Nucleated RBC % Basophils # (Manual) PT INR APTT Heparin Anti-Xa Level ABG pH POC ABG pO2 ABG pO2 ABG HCO3 ABG O2 Saturation ABG Base Excess POC ABG pCO2 ABG Hemoglobin ABG Oxyhemoglobin ABG Chloride ABG Glucose Oxyhemoglobin Sodium Potassium Chloride Carbon Dioxide BUN 35 H Creatinine Glucose 156 H POC Glucose 158 H 181 H Lactic Acid Calcium Phosphorus Magnesium AST ALT Lactate Dehydrogenase Total Bilirubin Direct Bilirubin CK-MB (CK-2) C-Reactive Protein NT-Pro-B Natriuret Pep Total Protein Albumin Arterial Blood Glucose Urine WBC (Auto) Urine Creatinine 12/31/19 12/31/19 12/31/19 18:16 19:41 21:53 WBC RBC Hgb Hct MCHC RDW MCV MCH Lymph % (Auto) [place] % (Auto) [place] # Eos # Lymph # (Auto) [place] # (Auto) Eos # (Auto) Seg Neutrophils % Seg Neuts % (Manual) Baso # (Auto) Lymphocytes % (Manual) Monocytes % (Manual) Eosinophils % (Manual) Basophils % (Manual) Seg Neutrophils # Seg Neutrophils # Man Lymphocytes # (Manual) Monocytes # (Manual) Eosinophils # (Manual) Nucleated RBC % Basophils # (Manual) PT INR APTT Heparin Anti-Xa Level 0.20 L ABG pH POC ABG pO2 ABG pO2 ABG HCO3 ABG O2 Saturation ABG Base Excess POC ABG pCO2 ABG Hemoglobin ABG Oxyhemoglobin ABG Chloride ABG Glucose Oxyhemoglobin Sodium Potassium Chloride Carbon Dioxide BUN 34 H Creatinine Glucose 169 H POC Glucose 141 H Lactic Acid Calcium Phosphorus Magnesium AST ALT Lactate Dehydrogenase Total Bilirubin Direct Bilirubin CK-MB (CK-2) C-Reactive Protein NT-Pro-B Natriuret Pep Total Protein Albumin Arterial Blood Glucose Urine WBC (Auto) Urine Creatinine 12/31/19 01/01/20 01/01/20 23:51 05:17 10:40 WBC RBC Hgb Hct MCHC RDW MCV MCH Lymph % (Auto) [place] % (Auto) [place] # Eos # Lymph # (Auto) [place] # (Auto) Eos # (Auto) Seg Neutrophils % Seg Neuts % (Manual) Baso # (Auto) Lymphocytes % (Manual) Monocytes % (Manual) Eosinophils % (Manual) Basophils % (Manual) Seg Neutrophils # Seg Neutrophils # Man Lymphocytes # (Manual) Monocytes # (Manual) Eosinophils # (Manual) Nucleated RBC % Basophils # (Manual) PT INR APTT Heparin Anti-Xa Level ABG pH POC ABG pO2 ABG pO2 ABG HCO3 ABG O2 Saturation ABG Base Excess POC ABG pCO2 ABG Hemoglobin ABG Oxyhemoglobin ABG Chloride ABG Glucose Oxyhemoglobin Sodium Potassium Chloride Carbon Dioxide BUN 31 H Creatinine 0.7 L Glucose 137 H POC Glucose 131 H 155 H Lactic Acid Calcium Phosphorus Magnesium AST 73 H ALT 97 H Lactate Dehydrogenase Total Bilirubin Direct Bilirubin CK-MB (CK-2) C-Reactive Protein NT-Pro-B Natriuret Pep 3866 H Total Protein Albumin 2.8 L Arterial Blood Glucose Urine WBC (Auto) Urine Creatinine 01/01/20 01/01/20 01/01/20 12:26 15:33 17:53 WBC 14.3 H RBC 3.35 L Hgb 9.1 L Hct 28.8 L MCHC RDW 17.0 H MCV MCH 27 L Lymph % (Auto) 7.0 L [place] % (Auto) 7.6 H [place] # Eos # Lymph # (Auto) 1.0 L [place] # (Auto) 1.1 H Eos # (Auto) Seg Neutrophils % 83.3 H Seg Neuts % (Manual) Baso # (Auto) Lymphocytes % (Manual) Monocytes % (Manual) Eosinophils % (Manual) Basophils % (Manual) Seg Neutrophils # 12.0 H Seg Neutrophils # Man Lymphocytes # (Manual) Monocytes # (Manual) Eosinophils # (Manual) Nucleated RBC % Basophils # (Manual) PT INR APTT Heparin Anti-Xa Level ABG pH POC ABG pO2 ABG pO2 ABG HCO3 ABG O2 Saturation ABG Base Excess POC ABG pCO2 ABG Hemoglobin ABG Oxyhemoglobin ABG Chloride ABG Glucose Oxyhemoglobin Sodium Potassium Chloride Carbon Dioxide BUN Creatinine Glucose POC Glucose 128 H 128 H Lactic Acid Calcium Phosphorus Magnesium AST ALT Lactate Dehydrogenase Total Bilirubin Direct Bilirubin CK-MB (CK-2) C-Reactive Protein NT-Pro-B Natriuret Pep Total Protein Albumin Arterial Blood Glucose Urine WBC (Auto) Urine Creatinine 01/01/20 01/02/20 01/02/20 23:04 05:39 07:00 WBC RBC Hgb Hct MCHC RDW MCV MCH Lymph % (Auto) [place] % (Auto) [place] # Eos # Lymph # (Auto) [place] # (Auto) Eos # (Auto) Seg Neutrophils % Seg Neuts % (Manual) Baso # (Auto) Lymphocytes % (Manual) Monocytes % (Manual) Eosinophils % (Manual) Basophils % (Manual) Seg Neutrophils # Seg Neutrophils # Man Lymphocytes # (Manual) Monocytes # (Manual) Eosinophils # (Manual) Nucleated RBC % Basophils # (Manual) PT INR APTT Heparin Anti-Xa Level 0.13 L ABG pH POC ABG pO2 ABG pO2 ABG HCO3 ABG O2 Saturation ABG Base Excess POC ABG pCO2 ABG Hemoglobin ABG Oxyhemoglobin ABG Chloride ABG Glucose Oxyhemoglobin Sodium Potassium Chloride Carbon Dioxide BUN Creatinine Glucose POC Glucose 120 H 169 H Lactic Acid Calcium Phosphorus Magnesium AST ALT Lactate Dehydrogenase Total Bilirubin Direct Bilirubin CK-MB (CK-2) C-Reactive Protein NT-Pro-B Natriuret Pep Total Protein Albumin Arterial Blood Glucose Urine WBC (Auto) Urine Creatinine 01/02/20 01/02/20 01/02/20 12:15 14:06 17:58 WBC RBC Hgb Hct MCHC RDW MCV MCH Lymph % (Auto) [place] % (Auto) [place] # Eos # Lymph # (Auto) [place] # (Auto) Eos # (Auto) Seg Neutrophils % Seg Neuts % (Manual) Baso # (Auto) Lymphocytes % (Manual) Monocytes % (Manual) Eosinophils % (Manual) Basophils % (Manual) Seg Neutrophils # Seg Neutrophils # Man Lymphocytes # (Manual) Monocytes # (Manual) Eosinophils # (Manual) Nucleated RBC % Basophils # (Manual) PT INR APTT Heparin Anti-Xa Level < 0.10 L ABG pH POC ABG pO2 ABG pO2 ABG HCO3 ABG O2 Saturation ABG Base Excess POC ABG pCO2 ABG Hemoglobin ABG Oxyhemoglobin ABG Chloride ABG Glucose Oxyhemoglobin Sodium Potassium Chloride Carbon Dioxide BUN Creatinine Glucose POC Glucose 190 H 198 H Lactic Acid Calcium Phosphorus Magnesium AST ALT Lactate Dehydrogenase Total Bilirubin Direct Bilirubin CK-MB (CK-2) C-Reactive Protein NT-Pro-B Natriuret Pep Total Protein Albumin Arterial Blood Glucose Urine WBC (Auto) Urine Creatinine 01/02/20 01/02/20 01/03/20 21:43 23:33 05:42 WBC RBC Hgb Hct MCHC RDW MCV MCH Lymph % (Auto) [place] % (Auto) [place] # Eos # Lymph # (Auto) [place] # (Auto) Eos # (Auto) Seg Neutrophils % Seg Neuts % (Manual) Baso # (Auto) Lymphocytes % (Manual) Monocytes % (Manual) Eosinophils % (Manual) Basophils % (Manual) Seg Neutrophils # Seg Neutrophils # Man Lymphocytes # (Manual) Monocytes # (Manual) Eosinophils # (Manual) Nucleated RBC % Basophils # (Manual) PT INR APTT Heparin Anti-Xa Level 0.10 L ABG pH POC ABG pO2 ABG pO2 ABG HCO3 ABG O2 Saturation ABG Base Excess POC ABG pCO2 ABG Hemoglobin ABG Oxyhemoglobin ABG Chloride ABG Glucose Oxyhemoglobin Sodium Potassium Chloride Carbon Dioxide BUN Creatinine Glucose POC Glucose 180 H 163 H Lactic Acid Calcium Phosphorus Magnesium AST ALT Lactate Dehydrogenase Total Bilirubin Direct Bilirubin CK-MB (CK-2) C-Reactive Protein NT-Pro-B Natriuret Pep Total Protein Albumin Arterial Blood Glucose Urine WBC (Auto) Urine Creatinine 01/03/20 01/03/20 01/03/20 06:50 07:25 07:45 WBC 12.1 H RBC 3.35 L Hgb 9.0 L Hct 28.9 L MCHC 31 L RDW 16.6 H MCV MCH 27 L Lymph % (Auto) 13.0 L [place] % (Auto) 8.6 H [place] # Eos # Lymph # (Auto) [place] # (Auto) 1.0 H Eos # (Auto) Seg Neutrophils % 75.9 H Seg Neuts % (Manual) Baso # (Auto) Lymphocytes % (Manual) Monocytes % (Manual) Eosinophils % (Manual) Basophils % (Manual) Seg Neutrophils # 9.2 H Seg Neutrophils # Man Lymphocytes # (Manual) Monocytes # (Manual) Eosinophils # (Manual) Nucleated RBC % Basophils # (Manual) PT INR APTT Heparin Anti-Xa Level 0.29 L ABG pH POC ABG pO2 ABG pO2 ABG HCO3 ABG O2 Saturation ABG Base Excess POC ABG pCO2 ABG Hemoglobin ABG Oxyhemoglobin ABG Chloride ABG Glucose Oxyhemoglobin Sodium Potassium 3.3 L D Chloride Carbon Dioxide 35 H D BUN 23 H Creatinine 0.6 L Glucose 149 H POC Glucose Lactic Acid Calcium Phosphorus Magnesium AST ALT 88 H Lactate Dehydrogenase Total Bilirubin Direct Bilirubin CK-MB (CK-2) C-Reactive Protein NT-Pro-B Natriuret Pep Total Protein 6.2 L Albumin 2.9 L Arterial Blood Glucose Urine WBC (Auto) Urine Creatinine 01/03/20 01/03/20 01/03/20 12:05 17:42 18:30 WBC RBC Hgb Hct MCHC RDW MCV MCH Lymph % (Auto) [place] % (Auto) [place] # Eos # Lymph # (Auto) [place] # (Auto) Eos # (Auto) Seg Neutrophils % Seg Neuts % (Manual) Baso # (Auto) Lymphocytes % (Manual) Monocytes % (Manual) Eosinophils % (Manual) Basophils % (Manual) Seg Neutrophils # Seg Neutrophils # Man Lymphocytes # (Manual) Monocytes # (Manual) Eosinophils # (Manual) Nucleated RBC % Basophils # (Manual) PT INR APTT Heparin Anti-Xa Level ABG pH POC ABG pO2 ABG pO2 70.7 L ABG HCO3 36.1 H ABG O2 Saturation 94.4 L ABG Base Excess 10.0 H POC ABG pCO2 ABG Hemoglobin 9.7 L ABG Oxyhemoglobin ABG Chloride ABG Glucose Oxyhemoglobin 91.8 L Sodium Potassium Chloride Carbon Dioxide BUN Creatinine Glucose POC Glucose 128 H 132 H Lactic Acid Calcium Phosphorus Magnesium AST ALT Lactate Dehydrogenase Total Bilirubin Direct Bilirubin CK-MB (CK-2) C-Reactive Protein NT-Pro-B Natriuret Pep Total Protein Albumin Arterial Blood Glucose Urine WBC (Auto) Urine Creatinine 01/04/20 01/04/20 01/04/20 00:10 04:26 05:23 WBC RBC Hgb Hct MCHC RDW MCV MCH Lymph % (Auto) [place] % (Auto) [place] # Eos # Lymph # (Auto) [place] # (Auto) Eos # (Auto) Seg Neutrophils % Seg Neuts % (Manual) Baso # (Auto) Lymphocytes % (Manual) Monocytes % (Manual) Eosinophils % (Manual) Basophils % (Manual) Seg Neutrophils # Seg Neutrophils # Man Lymphocytes # (Manual) Monocytes # (Manual) Eosinophils # (Manual) Nucleated RBC % Basophils # (Manual) PT INR APTT Heparin Anti-Xa Level 0.16 L ABG pH POC ABG pO2 ABG pO2 ABG HCO3 ABG O2 Saturation ABG Base Excess POC ABG pCO2 ABG Hemoglobin ABG Oxyhemoglobin ABG Chloride ABG Glucose Oxyhemoglobin Sodium Potassium Chloride Carbon Dioxide BUN Creatinine Glucose POC Glucose 121 H 119 H Lactic Acid Calcium Phosphorus Magnesium AST ALT Lactate Dehydrogenase Total Bilirubin Direct Bilirubin CK-MB (CK-2) C-Reactive Protein NT-Pro-B Natriuret Pep Total Protein Albumin Arterial Blood Glucose Urine WBC (Auto) Urine Creatinine 01/04/20 01/04/20 01/04/20 09:50 09:50 12:18 WBC 15.4 H RBC 3.30 L Hgb 8.7 L Hct 28.2 L MCHC 31 L RDW 17.0 H MCV MCH 26 L Lymph % (Auto) [place] % (Auto) 7.6 H [place] # Eos # Lymph # (Auto) [place] # (Auto) 1.2 H Eos # (Auto) Seg Neutrophils % 75.4 H Seg Neuts % (Manual) Baso # (Auto) Lymphocytes % (Manual) Monocytes % (Manual) Eosinophils % (Manual) Basophils % (Manual) Seg Neutrophils # 11.6 H Seg Neutrophils # Man Lymphocytes # (Manual) Monocytes # (Manual) Eosinophils # (Manual) Nucleated RBC % Basophils # (Manual) PT INR APTT Heparin Anti-Xa Level ABG pH POC ABG pO2 ABG pO2 ABG HCO3 ABG O2 Saturation ABG Base Excess POC ABG pCO2 ABG Hemoglobin ABG Oxyhemoglobin ABG Chloride ABG Glucose Oxyhemoglobin Sodium 148 H Potassium 3.5 L Chloride Carbon Dioxide 32 H BUN Creatinine 0.6 L Glucose 114 H POC Glucose 111 H Lactic Acid Calcium Phosphorus Magnesium AST ALT 59 H Lactate Dehydrogenase Total Bilirubin Direct Bilirubin CK-MB (CK-2) C-Reactive Protein NT-Pro-B Natriuret Pep Total Protein Albumin 2.6 L Arterial Blood Glucose Urine WBC (Auto) Urine Creatinine 01/05/20 01/05/20 01/05/20 04:05 04:05 05:19 WBC 11.7 H RBC 3.50 L Hgb 9.3 L Hct 29.9 L MCHC 31 L RDW 16.6 H MCV MCH 27 L Lymph % (Auto) 13.1 L [place] % (Auto) 9.7 H [place] # Eos # Lymph # (Auto) [place] # (Auto) 1.1 H Eos # (Auto) Seg Neutrophils % 74.0 H Seg Neuts % (Manual) Baso # (Auto) Lymphocytes % (Manual) Monocytes % (Manual) Eosinophils % (Manual) Basophils % (Manual) Seg Neutrophils # 8.6 H Seg Neutrophils # Man Lymphocytes # (Manual) Monocytes # (Manual) Eosinophils # (Manual) Nucleated RBC % Basophils # (Manual) PT INR APTT Heparin Anti-Xa Level ABG pH POC ABG pO2 ABG pO2 ABG HCO3 ABG O2 Saturation ABG Base Excess POC ABG pCO2 ABG Hemoglobin ABG Oxyhemoglobin ABG Chloride ABG Glucose Oxyhemoglobin Sodium 151 H Potassium Chloride Carbon Dioxide 34 H BUN Creatinine 0.7 L Glucose POC Glucose 112 H Lactic Acid Calcium Phosphorus Magnesium AST ALT 59 H Lactate Dehydrogenase Total Bilirubin Direct Bilirubin CK-MB (CK-2) C-Reactive Protein NT-Pro-B Natriuret Pep Total Protein 5.8 L Albumin 2.6 L Arterial Blood Glucose Urine WBC (Auto) Urine Creatinine 01/05/20 01/06/20 01/06/20 16:04 00:23 04:44 WBC RBC 3.36 L Hgb 8.9 L Hct 28.7 L MCHC 31 L RDW 16.9 H MCV MCH 26 L Lymph % (Auto) [place] % (Auto) 9.4 H [place] # Eos # Lymph # (Auto) [place] # (Auto) Eos # (Auto) Seg Neutrophils % Seg Neuts % (Manual) Baso # (Auto) Lymphocytes % (Manual) Monocytes % (Manual) Eosinophils % (Manual) Basophils % (Manual) Seg Neutrophils # Seg Neutrophils # Man Lymphocytes # (Manual) Monocytes # (Manual) Eosinophils # (Manual) Nucleated RBC % Basophils # (Manual) PT INR APTT Heparin Anti-Xa Level ABG pH POC ABG pO2 ABG pO2 ABG HCO3 ABG O2 Saturation ABG Base Excess POC ABG pCO2 ABG Hemoglobin ABG Oxyhemoglobin ABG Chloride ABG Glucose Oxyhemoglobin Sodium 151 H Potassium 3.2 L Chloride Carbon Dioxide 34 H BUN Creatinine 0.6 L Glucose POC Glucose 107 H Lactic Acid Calcium Phosphorus Magnesium AST ALT Lactate Dehydrogenase Total Bilirubin Direct Bilirubin CK-MB (CK-2) C-Reactive Protein NT-Pro-B Natriuret Pep Total Protein Albumin Arterial Blood Glucose Urine WBC (Auto) Urine Creatinine 01/06/20 01/06/20 01/06/20 04:44 05:33 12:04 WBC RBC Hgb Hct MCHC RDW MCV MCH Lymph % (Auto) [place] % (Auto) [place] # Eos # Lymph # (Auto) [place] # (Auto) Eos # (Auto) Seg Neutrophils % Seg Neuts % (Manual) Baso # (Auto) Lymphocytes % (Manual) Monocytes % (Manual) Eosinophils % (Manual) Basophils % (Manual) Seg Neutrophils # Seg Neutrophils # Man Lymphocytes # (Manual) Monocytes # (Manual) Eosinophils # (Manual) Nucleated RBC % Basophils # (Manual) PT INR APTT Heparin Anti-Xa Level ABG pH POC ABG pO2 ABG pO2 ABG HCO3 ABG O2 Saturation ABG Base Excess POC ABG pCO2 ABG Hemoglobin ABG Oxyhemoglobin ABG Chloride ABG Glucose Oxyhemoglobin Sodium 151 H Potassium 3.4 L Chloride Carbon Dioxide 33 H BUN Creatinine 0.6 L Glucose 118 H POC Glucose 118 H 123 H Lactic Acid Calcium Phosphorus Magnesium AST ALT Lactate Dehydrogenase Total Bilirubin Direct Bilirubin CK-MB (CK-2) C-Reactive Protein NT-Pro-B Natriuret Pep Total Protein 6.2 L Albumin 2.6 L Arterial Blood Glucose Urine WBC (Auto) Urine Creatinine 01/06/20 01/07/20 01/07/20 17:54 00:06 04:10 WBC RBC 3.42 L Hgb 8.9 L Hct 29.0 L MCHC 31 L RDW 17.1 H MCV MCH 26 L Lymph % (Auto) [place] % (Auto) 8.4 H [place] # Eos # Lymph # (Auto) [place] # (Auto) Eos # (Auto) Seg Neutrophils % Seg Neuts % (Manual) Baso # (Auto) Lymphocytes % (Manual) Monocytes % (Manual) Eosinophils % (Manual) Basophils % (Manual) Seg Neutrophils # Seg Neutrophils # Man Lymphocytes # (Manual) Monocytes # (Manual) Eosinophils # (Manual) Nucleated RBC % Basophils # (Manual) PT INR APTT Heparin Anti-Xa Level ABG pH POC ABG pO2 ABG pO2 ABG HCO3 ABG O2 Saturation ABG Base Excess POC ABG pCO2 ABG Hemoglobin ABG Oxyhemoglobin ABG Chloride ABG Glucose Oxyhemoglobin Sodium Potassium Chloride Carbon Dioxide BUN Creatinine Glucose POC Glucose 112 H 126 H Lactic Acid Calcium Phosphorus Magnesium AST ALT Lactate Dehydrogenase Total Bilirubin Direct Bilirubin CK-MB (CK-2) C-Reactive Protein NT-Pro-B Natriuret Pep Total Protein Albumin Arterial Blood Glucose Urine WBC (Auto) Urine Creatinine 01/07/20 01/07/20 01/07/20 04:10 05:59 12:27 WBC RBC Hgb Hct MCHC RDW MCV MCH Lymph % (Auto) [place] % (Auto) [place] # Eos # Lymph # (Auto) [place] # (Auto) Eos # (Auto) Seg Neutrophils % Seg Neuts % (Manual) Baso # (Auto) Lymphocytes % (Manual) Monocytes % (Manual) Eosinophils % (Manual) Basophils % (Manual) Seg Neutrophils # Seg Neutrophils # Man Lymphocytes # (Manual) Monocytes # (Manual) Eosinophils # (Manual) Nucleated RBC % Basophils # (Manual) PT INR APTT Heparin Anti-Xa Level ABG pH POC ABG pO2 ABG pO2 ABG HCO3 ABG O2 Saturation ABG Base Excess POC ABG pCO2 ABG Hemoglobin ABG Oxyhemoglobin ABG Chloride ABG Glucose Oxyhemoglobin Sodium 153 H Potassium 3.5 L Chloride Carbon Dioxide 34 H BUN Creatinine 0.6 L Glucose 121 H POC Glucose 121 H 126 H Lactic Acid Calcium Phosphorus Magnesium AST ALT Lactate Dehydrogenase Total Bilirubin Direct Bilirubin CK-MB (CK-2) C-Reactive Protein NT-Pro-B Natriuret Pep Total Protein 5.9 L Albumin 2.4 L Arterial Blood Glucose Urine WBC (Auto) Urine Creatinine 01/07/20 01/08/20 01/08/20 18:12 00:03 05:41 WBC RBC Hgb Hct MCHC RDW MCV MCH Lymph % (Auto) [place] % (Auto) [place] # Eos # Lymph # (Auto) [place] # (Auto) Eos # (Auto) Seg Neutrophils % Seg Neuts % (Manual) Baso # (Auto) Lymphocytes % (Manual) Monocytes % (Manual) Eosinophils % (Manual) Basophils % (Manual) Seg Neutrophils # Seg Neutrophils # Man Lymphocytes # (Manual) Monocytes # (Manual) Eosinophils # (Manual) Nucleated RBC % Basophils # (Manual) PT INR APTT Heparin Anti-Xa Level ABG pH POC ABG pO2 ABG pO2 ABG HCO3 ABG O2 Saturation ABG Base Excess POC ABG pCO2 ABG Hemoglobin ABG Oxyhemoglobin ABG Chloride ABG Glucose Oxyhemoglobin Sodium Potassium Chloride Carbon Dioxide BUN Creatinine Glucose POC Glucose 124 H 130 H 138 H Lactic Acid Calcium Phosphorus Magnesium AST ALT Lactate Dehydrogenase Total Bilirubin Direct Bilirubin CK-MB (CK-2) C-Reactive Protein NT-Pro-B Natriuret Pep Total Protein Albumin Arterial Blood Glucose Urine WBC (Auto) Urine Creatinine 01/08/20 01/08/20 01/08/20 09:28 11:42 18:21 WBC RBC Hgb Hct MCHC RDW MCV MCH Lymph % (Auto) [place] % (Auto) [place] # Eos # Lymph # (Auto) [place] # (Auto) Eos # (Auto) Seg Neutrophils % Seg Neuts % (Manual) Baso # (Auto) Lymphocytes % (Manual) Monocytes % (Manual) Eosinophils % (Manual) Basophils % (Manual) Seg Neutrophils # Seg Neutrophils # Man Lymphocytes # (Manual) Monocytes # (Manual) Eosinophils # (Manual) Nucleated RBC % Basophils # (Manual) PT INR APTT Heparin Anti-Xa Level ABG pH POC ABG pO2 ABG pO2 ABG HCO3 ABG O2 Saturation ABG Base Excess POC ABG pCO2 ABG Hemoglobin ABG Oxyhemoglobin ABG Chloride ABG Glucose Oxyhemoglobin Sodium Potassium Chloride Carbon Dioxide BUN Creatinine Glucose POC Glucose 181 H 150 H 129 H Lactic Acid Calcium Phosphorus Magnesium AST ALT Lactate Dehydrogenase Total Bilirubin Direct Bilirubin CK-MB (CK-2) C-Reactive Protein NT-Pro-B Natriuret Pep Total Protein Albumin Arterial Blood Glucose Urine WBC (Auto) Urine Creatinine 01/08/20 01/08/20 01/09/20 19:25 23:55 04:11 WBC RBC 3.43 L Hgb 8.9 L Hct 28.7 L MCHC 31 L RDW 17.6 H MCV MCH 26 L Lymph % (Auto) [place] % (Auto) 8.6 H [place] # Eos # Lymph # (Auto) [place] # (Auto) Eos # (Auto) Seg Neutrophils % Seg Neuts % (Manual) Baso # (Auto) Lymphocytes % (Manual) Monocytes % (Manual) Eosinophils % (Manual) Basophils % (Manual) Seg Neutrophils # Seg Neutrophils # Man Lymphocytes # (Manual) Monocytes # (Manual) Eosinophils # (Manual) Nucleated RBC % Basophils # (Manual) PT INR APTT Heparin Anti-Xa Level ABG pH POC ABG pO2 ABG pO2 ABG HCO3 ABG O2 Saturation ABG Base Excess POC ABG pCO2 ABG Hemoglobin ABG Oxyhemoglobin ABG Chloride ABG Glucose Oxyhemoglobin Sodium Potassium Chloride Carbon Dioxide BUN Creatinine 0.7 L Glucose 117 H POC Glucose 132 H Lactic Acid Calcium Phosphorus Magnesium AST ALT Lactate Dehydrogenase Total Bilirubin Direct Bilirubin CK-MB (CK-2) C-Reactive Protein NT-Pro-B Natriuret Pep Total Protein Albumin Arterial Blood Glucose Urine WBC (Auto) Urine Creatinine 01/09/20 01/09/20 01/09/20 04:11 05:38 22:58 WBC RBC Hgb Hct MCHC RDW MCV MCH Lymph % (Auto) [place] % (Auto) [place] # Eos # Lymph # (Auto) [place] # (Auto) Eos # (Auto) Seg Neutrophils % Seg Neuts % (Manual) Baso # (Auto) Lymphocytes % (Manual) Monocytes % (Manual) Eosinophils % (Manual) Basophils % (Manual) Seg Neutrophils # Seg Neutrophils # Man Lymphocytes # (Manual) Monocytes # (Manual) Eosinophils # (Manual) Nucleated RBC % Basophils # (Manual) PT INR APTT Heparin Anti-Xa Level ABG pH POC ABG pO2 ABG pO2 ABG HCO3 ABG O2 Saturation ABG Base Excess POC ABG pCO2 ABG Hemoglobin ABG Oxyhemoglobin ABG Chloride ABG Glucose Oxyhemoglobin Sodium 147 H Potassium 3.3 L D Chloride Carbon Dioxide 32 H BUN Creatinine 0.6 L Glucose 106 H POC Glucose 107 H 113 H Lactic Acid Calcium Phosphorus Magnesium AST ALT Lactate Dehydrogenase Total Bilirubin Direct Bilirubin CK-MB (CK-2) C-Reactive Protein NT-Pro-B Natriuret Pep Total Protein Albumin Arterial Blood Glucose Urine WBC (Auto) Urine Creatinine 01/10/20 01/10/20 01/10/20 04:05 11:36 17:54 WBC RBC Hgb Hct MCHC RDW MCV MCH Lymph % (Auto) [place] % (Auto) [place] # Eos # Lymph # (Auto) [place] # (Auto) Eos # (Auto) Seg Neutrophils % Seg Neuts % (Manual) Baso # (Auto) Lymphocytes % (Manual) Monocytes % (Manual) Eosinophils % (Manual) Basophils % (Manual) Seg Neutrophils # Seg Neutrophils # Man Lymphocytes # (Manual) Monocytes # (Manual) Eosinophils # (Manual) Nucleated RBC % Basophils # (Manual) PT INR APTT Heparin Anti-Xa Level ABG pH POC ABG pO2 ABG pO2 ABG HCO3 ABG O2 Saturation ABG Base Excess POC ABG pCO2 ABG Hemoglobin ABG Oxyhemoglobin ABG Chloride ABG Glucose Oxyhemoglobin Sodium Potassium Chloride Carbon Dioxide BUN Creatinine 0.7 L Glucose 110 H POC Glucose 129 H 117 H Lactic Acid Calcium Phosphorus Magnesium AST ALT Lactate Dehydrogenase Total Bilirubin Direct Bilirubin CK-MB (CK-2) C-Reactive Protein NT-Pro-B Natriuret Pep Total Protein Albumin Arterial Blood Glucose Urine WBC (Auto) Urine Creatinine 01/10/20 01/11/20 01/11/20 23:52 03:19 12:09 WBC RBC Hgb Hct MCHC RDW MCV MCH Lymph % (Auto) [place] % (Auto) [place] # Eos # Lymph # (Auto) [place] # (Auto) Eos # (Auto) Seg Neutrophils % Seg Neuts % (Manual) Baso # (Auto) Lymphocytes % (Manual) Monocytes % (Manual) Eosinophils % (Manual) Basophils % (Manual) Seg Neutrophils # Seg Neutrophils # Man Lymphocytes # (Manual) Monocytes # (Manual) Eosinophils # (Manual) Nucleated RBC % Basophils # (Manual) PT INR APTT Heparin Anti-Xa Level ABG pH POC ABG pO2 ABG pO2 ABG HCO3 ABG O2 Saturation ABG Base Excess POC ABG pCO2 ABG Hemoglobin ABG Oxyhemoglobin ABG Chloride ABG Glucose Oxyhemoglobin Sodium Potassium Chloride Carbon Dioxide BUN Creatinine Glucose POC Glucose 117 H 136 H 115 H Lactic Acid Calcium Phosphorus Magnesium AST ALT Lactate Dehydrogenase Total Bilirubin Direct Bilirubin CK-MB (CK-2) C-Reactive Protein NT-Pro-B Natriuret Pep Total Protein Albumin Arterial Blood Glucose Urine WBC (Auto) Urine Creatinine 01/11/20 01/11/20 01/12/20 18:27 23:28 00:23 WBC RBC Hgb 9.8 L Hct 31.6 L MCHC 31 L RDW 17.8 H MCV 83 L MCH 26 L Lymph % (Auto) [place] % (Auto) 8.0 H [place] # Eos # Lymph # (Auto) [place] # (Auto) Eos # (Auto) Seg Neutrophils % Seg Neuts % (Manual) Baso # (Auto) Lymphocytes % (Manual) Monocytes % (Manual) Eosinophils % (Manual) Basophils % (Manual) Seg Neutrophils # Seg Neutrophils # Man Lymphocytes # (Manual) Monocytes # (Manual) Eosinophils # (Manual) Nucleated RBC % Basophils # (Manual) PT INR APTT Heparin Anti-Xa Level ABG pH POC ABG pO2 ABG pO2 ABG HCO3 ABG O2 Saturation ABG Base Excess POC ABG pCO2 ABG Hemoglobin ABG Oxyhemoglobin ABG Chloride ABG Glucose Oxyhemoglobin Sodium Potassium Chloride Carbon Dioxide BUN Creatinine Glucose POC Glucose 118 H 122 H Lactic Acid Calcium Phosphorus Magnesium AST ALT Lactate Dehydrogenase Total Bilirubin Direct Bilirubin CK-MB (CK-2) C-Reactive Protein NT-Pro-B Natriuret Pep Total Protein Albumin Arterial Blood Glucose Urine WBC (Auto) Urine Creatinine 01/12/20 01/12/20 01/12/20 00:23 04:18 04:18 WBC RBC Hgb 9.6 L Hct 30.9 L MCHC 31 L RDW 17.3 H MCV 81 L MCH 25 L Lymph % (Auto) [place] % (Auto) [place] # Eos # Lymph # (Auto) [place] # (Auto) Eos # (Auto) Seg Neutrophils % Seg Neuts % (Manual) Baso # (Auto) Lymphocytes % (Manual) Monocytes % (Manual) Eosinophils % (Manual) Basophils % (Manual) Seg Neutrophils # Seg Neutrophils # Man Lymphocytes # (Manual) Monocytes # (Manual) Eosinophils # (Manual) Nucleated RBC % Basophils # (Manual) PT INR APTT Heparin Anti-Xa Level ABG pH POC ABG pO2 ABG pO2 ABG HCO3 ABG O2 Saturation ABG Base Excess POC ABG pCO2 ABG Hemoglobin ABG Oxyhemoglobin ABG Chloride ABG Glucose Oxyhemoglobin Sodium Potassium Chloride Carbon Dioxide BUN Creatinine 0.7 L 0.7 L Glucose 111 H 108 H POC Glucose Lactic Acid Calcium Phosphorus Magnesium AST ALT Lactate Dehydrogenase Total Bilirubin Direct Bilirubin CK-MB (CK-2) C-Reactive Protein NT-Pro-B Natriuret Pep Total Protein Albumin 2.6 L Arterial Blood Glucose Urine WBC (Auto) Urine Creatinine 01/12/20 01/12/20 01/12/20 06:03 12:27 13:58 WBC RBC Hgb Hct MCHC RDW MCV MCH Lymph % (Auto) [place] % (Auto) [place] # Eos # Lymph # (Auto) [place] # (Auto) Eos # (Auto) Seg Neutrophils % Seg Neuts % (Manual) Baso # (Auto) Lymphocytes % (Manual) Monocytes % (Manual) Eosinophils % (Manual) Basophils % (Manual) Seg Neutrophils # Seg Neutrophils # Man Lymphocytes # (Manual) Monocytes # (Manual) Eosinophils # (Manual) Nucleated RBC % Basophils # (Manual) PT INR APTT Heparin Anti-Xa Level ABG pH 7.453 H POC ABG pO2 76.6 L ABG pO2 ABG HCO3 ABG O2 Saturation ABG Base Excess POC ABG pCO2 ABG Hemoglobin 10.3 L ABG Oxyhemoglobin ABG Chloride ABG Glucose 99 H Oxyhemoglobin Sodium Potassium Chloride Carbon Dioxide BUN Creatinine Glucose POC Glucose 128 H 121 H Lactic Acid Calcium Phosphorus Magnesium AST ALT Lactate Dehydrogenase Total Bilirubin Direct Bilirubin CK-MB (CK-2) C-Reactive Protein NT-Pro-B Natriuret Pep Total Protein Albumin Arterial Blood Glucose 99 H Urine WBC (Auto) Urine Creatinine 01/12/20 01/13/2001/12/20 18:24 12:01 17:46 WBC RBC Hgb Hct MCHC RDW MCV MCH Lymph % (Auto) [place] % (Auto) [place] # Eos # Lymph # (Auto) [place] # (Auto) Eos # (Auto) Seg Neutrophils % Seg Neuts % (Manual) Baso # (Auto) Lymphocytes % (Manual) Monocytes % (Manual) Eosinophils % (Manual) Basophils % (Manual) Seg Neutrophils # Seg Neutrophils # Man Lymphocytes # (Manual) Monocytes # (Manual) Eosinophils # (Manual) Nucleated RBC % Basophils # (Manual) PT INR APTT Heparin Anti-Xa Level ABG pH POC ABG pO2 ABG pO2 ABG HCO3 ABG O2 Saturation ABG Base Excess POC ABG pCO2 ABG Hemoglobin ABG Oxyhemoglobin ABG Chloride ABG Glucose Oxyhemoglobin Sodium Potassium Chloride Carbon Dioxide BUN Creatinine Glucose POC Glucose 119 H 107 H 124 H Lactic Acid Calcium Phosphorus Magnesium AST ALT Lactate Dehydrogenase Total Bilirubin Direct Bilirubin CK-MB (CK-2) C-Reactive Protein NT-Pro-B Natriuret Pep Total Protein Albumin Arterial Blood Glucose Urine WBC (Auto) Urine Creatinine 01/13/20 01/14/20 01/14/20 20:40 00:10 05:33 WBC RBC Hgb Hct MCHC RDW MCV MCH Lymph % (Auto) [place] % (Auto) [place] # Eos # Lymph # (Auto) [place] # (Auto) Eos # (Auto) Seg Neutrophils % Seg Neuts % (Manual) Baso # (Auto) Lymphocytes % (Manual) Monocytes % (Manual) Eosinophils % (Manual) Basophils % (Manual) Seg Neutrophils # Seg Neutrophils # Man Lymphocytes # (Manual) Monocytes # (Manual) Eosinophils # (Manual) Nucleated RBC % Basophils # (Manual) PT INR APTT Heparin Anti-Xa Level ABG pH POC ABG pO2 ABG pO2 65.3 L ABG HCO3 31.8 H ABG O2 Saturation 93.5 L ABG Base Excess 6.7 H POC ABG pCO2 ABG Hemoglobin 13.3 L ABG Oxyhemoglobin ABG Chloride ABG Glucose Oxyhemoglobin 90.9 L Sodium Potassium Chloride Carbon Dioxide BUN Creatinine Glucose POC Glucose 111 H 111 H Lactic Acid Calcium Phosphorus Magnesium AST ALT Lactate Dehydrogenase Total Bilirubin Direct Bilirubin CK-MB (CK-2) C-Reactive Protein NT-Pro-B Natriuret Pep Total Protein Albumin Arterial Blood Glucose Urine WBC (Auto) Urine Creatinine 01/14/20 01/14/20 01/14/20 12:10 16:14 16:14 WBC RBC Hgb 10.6 L Hct 34.2 L MCHC 31 L RDW 18.3 H MCV 83 L MCH 26 L Lymph % (Auto) [place] % (Auto) 7.4 H [place] # Eos # Lymph # (Auto) [place] # (Auto) Eos # (Auto) Seg Neutrophils % 71.9 H Seg Neuts % (Manual) Baso # (Auto) Lymphocytes % (Manual) Monocytes % (Manual) Eosinophils % (Manual) Basophils % (Manual) Seg Neutrophils # Seg Neutrophils # Man Lymphocytes # (Manual) Monocytes # (Manual) Eosinophils # (Manual) Nucleated RBC % Basophils # (Manual) PT INR APTT Heparin Anti-Xa Level ABG pH POC ABG pO2 ABG pO2 ABG HCO3 ABG O2 Saturation ABG Base Excess POC ABG pCO2 ABG Hemoglobin ABG Oxyhemoglobin ABG Chloride ABG Glucose Oxyhemoglobin Sodium Potassium Chloride Carbon Dioxide 31 H BUN Creatinine 0.6 L Glucose 131 H POC Glucose 139 H Lactic Acid Calcium Phosphorus Magnesium AST ALT Lactate Dehydrogenase Total Bilirubin Direct Bilirubin CK-MB (CK-2) C-Reactive Protein NT-Pro-B Natriuret Pep Total Protein Albumin Arterial Blood Glucose Urine WBC (Auto) Urine Creatinine 01/14/20 01/15/20 01/15/20 18:05 00:52 05:35 WBC RBC Hgb Hct MCHC RDW MCV MCH Lymph % (Auto) [place] % (Auto) [place] # Eos # Lymph # (Auto) [place] # (Auto) Eos # (Auto) Seg Neutrophils % Seg Neuts % (Manual) Baso # (Auto) Lymphocytes % (Manual) Monocytes % (Manual) Eosinophils % (Manual) Basophils % (Manual) Seg Neutrophils # Seg Neutrophils # Man Lymphocytes # (Manual) Monocytes # (Manual) Eosinophils # (Manual) Nucleated RBC % Basophils # (Manual) PT INR APTT Heparin Anti-Xa Level ABG pH POC ABG pO2 ABG pO2 ABG HCO3 ABG O2 Saturation ABG Base Excess POC ABG pCO2 ABG Hemoglobin ABG Oxyhemoglobin ABG Chloride ABG Glucose Oxyhemoglobin Sodium Potassium Chloride Carbon Dioxide BUN Creatinine Glucose POC Glucose 147 H 140 H 159 H Lactic Acid Calcium Phosphorus Magnesium AST ALT Lactate Dehydrogenase Total Bilirubin Direct Bilirubin CK-MB (CK-2) C-Reactive Protein NT-Pro-B Natriuret Pep Total Protein Albumin Arterial Blood Glucose Urine WBC (Auto) Urine Creatinine 01/15/20 01/15/20 01/16/20 12:52 17:43 00:32 WBC RBC Hgb Hct MCHC RDW MCV MCH Lymph % (Auto) [place] % (Auto) [place] # Eos # Lymph # (Auto) [place] # (Auto) Eos # (Auto) Seg Neutrophils % Seg Neuts % (Manual) Baso # (Auto) Lymphocytes % (Manual) Monocytes % (Manual) Eosinophils % (Manual) Basophils % (Manual) Seg Neutrophils # Seg Neutrophils # Man Lymphocytes # (Manual) Monocytes # (Manual) Eosinophils # (Manual) Nucleated RBC % Basophils # (Manual) PT INR APTT Heparin Anti-Xa Level ABG pH POC ABG pO2 ABG pO2 ABG HCO3 ABG O2 Saturation ABG Base Excess POC ABG pCO2 ABG Hemoglobin ABG Oxyhemoglobin ABG Chloride ABG Glucose Oxyhemoglobin Sodium Potassium Chloride Carbon Dioxide BUN Creatinine Glucose POC Glucose 164 H 167 H 153 H Lactic Acid Calcium Phosphorus Magnesium AST ALT Lactate Dehydrogenase Total Bilirubin Direct Bilirubin CK-MB (CK-2) C-Reactive Protein NT-Pro-B Natriuret Pep Total Protein Albumin Arterial Blood Glucose Urine WBC (Auto) Urine Creatinine 01/16/20 01/16/20 01/17/20 05:46 11:48 06:38 WBC RBC Hgb Hct MCHC RDW MCV MCH Lymph % (Auto) [place] % (Auto) [place] # Eos # Lymph # (Auto) [place] # (Auto) Eos # (Auto) Seg Neutrophils % Seg Neuts % (Manual) Baso # (Auto) Lymphocytes % (Manual) Monocytes % (Manual) Eosinophils % (Manual) Basophils % (Manual) Seg Neutrophils # Seg Neutrophils # Man Lymphocytes # (Manual) Monocytes # (Manual) Eosinophils # (Manual) Nucleated RBC % Basophils # (Manual) PT INR APTT Heparin Anti-Xa Level ABG pH POC ABG pO2 ABG pO2 ABG HCO3 ABG O2 Saturation ABG Base Excess POC ABG pCO2 ABG Hemoglobin ABG Oxyhemoglobin ABG Chloride ABG Glucose Oxyhemoglobin Sodium Potassium Chloride Carbon Dioxide BUN Creatinine Glucose POC Glucose 163 H 155 H 116 H Lactic Acid Calcium Phosphorus Magnesium AST ALT Lactate Dehydrogenase Total Bilirubin Direct Bilirubin CK-MB (CK-2) C-Reactive Protein NT-Pro-B Natriuret Pep Total Protein Albumin Arterial Blood Glucose Urine WBC (Auto) Urine Creatinine 01/17/20 01/17/20 01/18/20 11:36 17:43 00:12 WBC RBC Hgb Hct MCHC RDW MCV MCH Lymph % (Auto) [place] % (Auto) [place] # Eos # Lymph # (Auto) [place] # (Auto) Eos # (Auto) Seg Neutrophils % Seg Neuts % (Manual) Baso # (Auto) Lymphocytes % (Manual) Monocytes % (Manual) Eosinophils % (Manual) Basophils % (Manual) Seg Neutrophils # Seg Neutrophils # Man Lymphocytes # (Manual) Monocytes # (Manual) Eosinophils # (Manual) Nucleated RBC % Basophils # (Manual) PT INR APTT Heparin Anti-Xa Level ABG pH POC ABG pO2 ABG pO2 ABG HCO3 ABG O2 Saturation ABG Base Excess POC ABG pCO2 ABG Hemoglobin ABG Oxyhemoglobin ABG Chloride ABG Glucose Oxyhemoglobin Sodium Potassium Chloride Carbon Dioxide BUN Creatinine Glucose POC Glucose 110 H 134 H 108 H Lactic Acid Calcium Phosphorus Magnesium AST ALT Lactate Dehydrogenase Total Bilirubin Direct Bilirubin CK-MB (CK-2) C-Reactive Protein NT-Pro-B Natriuret Pep Total Protein Albumin Arterial Blood Glucose Urine WBC (Auto) Urine Creatinine 01/18/20 01/18/20 01/18/20 05:37 06:46 06:46 WBC RBC Hgb 10.1 L Hct 32.2 L MCHC 31 L RDW 18.1 H MCV 81 L MCH 25 L Lymph % (Auto) [place] % (Auto) [place] # Eos # Lymph # (Auto) [place] # (Auto) Eos # (Auto) Seg Neutrophils % 71.9 H Seg Neuts % (Manual) Baso # (Auto) Lymphocytes % (Manual) Monocytes % (Manual) Eosinophils % (Manual) Basophils % (Manual) Seg Neutrophils # Seg Neutrophils # Man Lymphocytes # (Manual) Monocytes # (Manual) Eosinophils # (Manual) Nucleated RBC % Basophils # (Manual) PT INR APTT Heparin Anti-Xa Level ABG pH POC ABG pO2 ABG pO2 ABG HCO3 ABG O2 Saturation ABG Base Excess POC ABG pCO2 ABG Hemoglobin ABG Oxyhemoglobin ABG Chloride ABG Glucose Oxyhemoglobin Sodium Potassium Chloride Carbon Dioxide BUN Creatinine 0.7 L Glucose 155 H POC Glucose 168 H Lactic Acid Calcium Phosphorus Magnesium AST ALT Lactate Dehydrogenase Total Bilirubin Direct Bilirubin CK-MB (CK-2) C-Reactive Protein NT-Pro-B Natriuret Pep Total Protein Albumin Arterial Blood Glucose Urine WBC (Auto) Urine Creatinine 01/18/20 01/18/20 01/18/20 12:05 17:14 23:28 WBC RBC Hgb Hct MCHC RDW MCV MCH Lymph % (Auto) [place] % (Auto) [place] # Eos # Lymph # (Auto) [place] # (Auto) Eos # (Auto) Seg Neutrophils % Seg Neuts % (Manual) Baso # (Auto) Lymphocytes % (Manual) Monocytes % (Manual) Eosinophils % (Manual) Basophils % (Manual) Seg Neutrophils # Seg Neutrophils # Man Lymphocytes # (Manual) Monocytes # (Manual) Eosinophils # (Manual) Nucleated RBC % Basophils # (Manual) PT INR APTT Heparin Anti-Xa Level ABG pH POC ABG pO2 ABG pO2 ABG HCO3 ABG O2 Saturation ABG Base Excess POC ABG pCO2 ABG Hemoglobin ABG Oxyhemoglobin ABG Chloride ABG Glucose Oxyhemoglobin Sodium Potassium Chloride Carbon Dioxide BUN Creatinine Glucose POC Glucose 128 H 126 H 128 H Lactic Acid Calcium Phosphorus Magnesium AST ALT Lactate Dehydrogenase Total Bilirubin Direct Bilirubin CK-MB (CK-2) C-Reactive Protein NT-Pro-B Natriuret Pep Total Protein Albumin Arterial Blood Glucose Urine WBC (Auto) Urine Creatinine 01/19/20 01/19/20 01/19/20 05:39 12:33 17:36 WBC RBC Hgb Hct MCHC RDW MCV MCH Lymph % (Auto) [place] % (Auto) [place] # Eos # Lymph # (Auto) [place] # (Auto) Eos # (Auto) Seg Neutrophils % Seg Neuts % (Manual) Baso # (Auto) Lymphocytes % (Manual) Monocytes % (Manual) Eosinophils % (Manual) Basophils % (Manual) Seg Neutrophils # Seg Neutrophils # Man Lymphocytes # (Manual) Monocytes # (Manual) Eosinophils # (Manual) Nucleated RBC % Basophils # (Manual) PT INR APTT Heparin Anti-Xa Level ABG pH POC ABG pO2 ABG pO2 ABG HCO3 ABG O2 Saturation ABG Base Excess POC ABG pCO2 ABG Hemoglobin ABG Oxyhemoglobin ABG Chloride ABG Glucose Oxyhemoglobin Sodium Potassium Chloride Carbon Dioxide BUN Creatinine Glucose POC Glucose 164 H 171 H 152 H Lactic Acid Calcium Phosphorus Magnesium AST ALT Lactate Dehydrogenase Total Bilirubin Direct Bilirubin CK-MB (CK-2) C-Reactive Protein NT-Pro-B Natriuret Pep Total Protein Albumin Arterial Blood Glucose Urine WBC (Auto) Urine Creatinine 01/20/20 01/20/20 01/20/20 00:12 05:20 05:35 WBC RBC Hgb 9.2 L Hct 29.4 L MCHC 31 L RDW 17.9 H MCV 81 L MCH 25 L Lymph % (Auto) [place] % (Auto) [place] # Eos # Lymph # (Auto) [place] # (Auto) Eos # (Auto) Seg Neutrophils % Seg Neuts % (Manual) Baso # (Auto) Lymphocytes % (Manual) Monocytes % (Manual) Eosinophils % (Manual) Basophils % (Manual) Seg Neutrophils # Seg Neutrophils # Man Lymphocytes # (Manual) Monocytes # (Manual) Eosinophils # (Manual) Nucleated RBC % Basophils # (Manual) PT INR APTT Heparin Anti-Xa Level ABG pH POC ABG pO2 ABG pO2 ABG HCO3 ABG O2 Saturation ABG Base Excess POC ABG pCO2 ABG Hemoglobin ABG Oxyhemoglobin ABG Chloride ABG Glucose Oxyhemoglobin Sodium Potassium Chloride Carbon Dioxide BUN Creatinine Glucose POC Glucose 120 H 136 H Lactic Acid Calcium Phosphorus Magnesium AST ALT Lactate Dehydrogenase Total Bilirubin Direct Bilirubin CK-MB (CK-2) C-Reactive Protein NT-Pro-B Natriuret Pep Total Protein Albumin Arterial Blood Glucose Urine WBC (Auto) Urine Creatinine 01/20/20 01/20/20 01/20/20 05:40 11:58 14:55 WBC RBC Hgb 9.0 L Hct 28.3 L MCHC RDW MCV MCH Lymph % (Auto) [place] % (Auto) [place] # Eos # Lymph # (Auto) [place] # (Auto) Eos # (Auto) Seg Neutrophils % Seg Neuts % (Manual) Baso # (Auto) Lymphocytes % (Manual) Monocytes % (Manual) Eosinophils % (Manual) Basophils % (Manual) Seg Neutrophils # Seg Neutrophils # Man Lymphocytes # (Manual) Monocytes # (Manual) Eosinophils # (Manual) Nucleated RBC % Basophils # (Manual) PT INR APTT Heparin Anti-Xa Level ABG pH POC ABG pO2 ABG pO2 ABG HCO3 ABG O2 Saturation ABG Base Excess POC ABG pCO2 ABG Hemoglobin ABG Oxyhemoglobin ABG Chloride ABG Glucose Oxyhemoglobin Sodium Potassium Chloride Carbon Dioxide 32 H BUN 22 H Creatinine 0.7 L Glucose 128 H POC Glucose 152 H Lactic Acid Calcium Phosphorus Magnesium AST ALT Lactate Dehydrogenase Total Bilirubin Direct Bilirubin CK-MB (CK-2) C-Reactive Protein NT-Pro-B Natriuret Pep Total Protein Albumin Arterial Blood Glucose Urine WBC (Auto) Urine Creatinine 01/20/20 01/20/20 01/20/20 14:55 18:14 21:35 WBC RBC Hgb Hct MCHC RDW MCV MCH Lymph % (Auto) [place] % (Auto) [place] # Eos # Lymph # (Auto) [place] # (Auto) Eos # (Auto) Seg Neutrophils % Seg Neuts % (Manual) Baso # (Auto) Lymphocytes % (Manual) Monocytes % (Manual) Eosinophils % (Manual) Basophils % (Manual) Seg Neutrophils # Seg Neutrophils # Man Lymphocytes # (Manual) Monocytes # (Manual) Eosinophils # (Manual) Nucleated RBC % Basophils # (Manual) PT 20.4 H INR 1.72 H APTT 40.6 H Heparin Anti-Xa Level > 2.00 H ABG pH POC ABG pO2 ABG pO2 ABG HCO3 ABG O2 Saturation ABG Base Excess POC ABG pCO2 ABG Hemoglobin ABG Oxyhemoglobin ABG Chloride ABG Glucose Oxyhemoglobin Sodium Potassium Chloride Carbon Dioxide BUN Creatinine Glucose POC Glucose 150 H Lactic Acid Calcium Phosphorus Magnesium AST ALT Lactate Dehydrogenase Total Bilirubin Direct Bilirubin CK-MB (CK-2) C-Reactive Protein NT-Pro-B Natriuret Pep Total Protein Albumin Arterial Blood Glucose Urine WBC (Auto) Urine Creatinine 01/21/20 01/21/20 01/21/20 00:30 05:47 05:59 WBC RBC Hgb Hct MCHC RDW MCV MCH Lymph % (Auto) [place] % (Auto) [place] # Eos # Lymph # (Auto) [place] # (Auto) Eos # (Auto) Seg Neutrophils % Seg Neuts % (Manual) Baso # (Auto) Lymphocytes % (Manual) Monocytes % (Manual) Eosinophils % (Manual) Basophils % (Manual) Seg Neutrophils # Seg Neutrophils # Man Lymphocytes # (Manual) Monocytes # (Manual) Eosinophils # (Manual) Nucleated RBC % Basophils # (Manual) PT INR APTT Heparin Anti-Xa Level 1.93 H ABG pH POC ABG pO2 ABG pO2 ABG HCO3 ABG O2 Saturation ABG Base Excess POC ABG pCO2 ABG Hemoglobin ABG Oxyhemoglobin ABG Chloride ABG Glucose Oxyhemoglobin Sodium Potassium Chloride Carbon Dioxide BUN Creatinine Glucose POC Glucose 126 H 148 H Lactic Acid Calcium Phosphorus Magnesium AST ALT Lactate Dehydrogenase Total Bilirubin Direct Bilirubin CK-MB (CK-2) C-Reactive Protein NT-Pro-B Natriuret Pep Total Protein Albumin Arterial Blood Glucose Urine WBC (Auto) Urine Creatinine 01/21/20 01/21/20 01/21/20 12:32 18:20 23:54 WBC RBC Hgb Hct MCHC RDW MCV MCH Lymph % (Auto) [place] % (Auto) [place] # Eos # Lymph # (Auto) [place] # (Auto) Eos # (Auto) Seg Neutrophils % Seg Neuts % (Manual) Baso # (Auto) Lymphocytes % (Manual) Monocytes % (Manual) Eosinophils % (Manual) Basophils % (Manual) Seg Neutrophils # Seg Neutrophils # Man Lymphocytes # (Manual) Monocytes # (Manual) Eosinophils # (Manual) Nucleated RBC % Basophils # (Manual) PT INR APTT Heparin Anti-Xa Level 1.28 H ABG pH POC ABG pO2 ABG pO2 ABG HCO3 ABG O2 Saturation ABG Base Excess POC ABG pCO2 ABG Hemoglobin ABG Oxyhemoglobin ABG Chloride ABG Glucose Oxyhemoglobin Sodium Potassium Chloride Carbon Dioxide BUN Creatinine Glucose POC Glucose 112 H 146 H Lactic Acid Calcium Phosphorus Magnesium AST ALT Lactate Dehydrogenase Total Bilirubin Direct Bilirubin CK-MB (CK-2) C-Reactive Protein NT-Pro-B Natriuret Pep Total Protein Albumin Arterial Blood Glucose Urine WBC (Auto) Urine Creatinine 01/22/20 01/22/20 01/22/20 04:45 04:45 05:48 WBC RBC Hgb 9.3 L Hct 29.0 L MCHC RDW MCV MCH Lymph % (Auto) [place] % (Auto) [place] # Eos # Lymph # (Auto) [place] # (Auto) Eos # (Auto) Seg Neutrophils % Seg Neuts % (Manual) Baso # (Auto) Lymphocytes % (Manual) Monocytes % (Manual) Eosinophils % (Manual) Basophils % (Manual) Seg Neutrophils # Seg Neutrophils # Man Lymphocytes # (Manual) Monocytes # (Manual) Eosinophils # (Manual) Nucleated RBC % Basophils # (Manual) PT INR APTT Heparin Anti-Xa Level 1.34 H ABG pH POC ABG pO2 ABG pO2 ABG HCO3 ABG O2 Saturation ABG Base Excess POC ABG pCO2 ABG Hemoglobin ABG Oxyhemoglobin ABG Chloride ABG Glucose Oxyhemoglobin Sodium Potassium Chloride Carbon Dioxide BUN Creatinine Glucose POC Glucose 142 H Lactic Acid Calcium Phosphorus Magnesium AST ALT Lactate Dehydrogenase Total Bilirubin Direct Bilirubin CK-MB (CK-2) C-Reactive Protein NT-Pro-B Natriuret Pep Total Protein Albumin Arterial Blood Glucose Urine WBC (Auto) Urine Creatinine 01/22/20 01/22/20 01/22/20 08:09 08:22 09:58 WBC RBC Hgb Hct MCHC RDW MCV MCH Lymph % (Auto) [place] % (Auto) [place] # Eos # Lymph # (Auto) [place] # (Auto) Eos # (Auto) Seg Neutrophils % Seg Neuts % (Manual) Baso # (Auto) Lymphocytes % (Manual) Monocytes % (Manual) Eosinophils % (Manual) Basophils % (Manual) Seg Neutrophils # Seg Neutrophils # Man Lymphocytes # (Manual) Monocytes # (Manual) Eosinophils # (Manual) Nucleated RBC % Basophils # (Manual) PT 16.9 H INR 1.34 H APTT Heparin Anti-Xa Level ABG pH POC ABG pO2 ABG pO2 ABG HCO3 ABG O2 Saturation ABG Base Excess POC ABG pCO2 ABG Hemoglobin ABG Oxyhemoglobin ABG Chloride ABG Glucose Oxyhemoglobin Sodium Potassium Chloride 97.8 L Carbon Dioxide BUN 29 H Creatinine Glucose 128 H POC Glucose 131 H Lactic Acid Calcium Phosphorus Magnesium AST ALT Lactate Dehydrogenase Total Bilirubin Direct Bilirubin CK-MB (CK-2) C-Reactive Protein NT-Pro-B Natriuret Pep Total Protein Albumin Arterial Blood Glucose Urine WBC (Auto) Urine Creatinine 01/22/20 01/22/20 01/22/20 12:44 16:13 18:18 WBC RBC Hgb Hct MCHC RDW MCV MCH Lymph % (Auto) [place] % (Auto) [place] # Eos # Lymph # (Auto) [place] # (Auto) Eos # (Auto) Seg Neutrophils % Seg Neuts % (Manual) Baso # (Auto) Lymphocytes % (Manual) Monocytes % (Manual) Eosinophils % (Manual) Basophils % (Manual) Seg Neutrophils # Seg Neutrophils # Man Lymphocytes # (Manual) Monocytes # (Manual) Eosinophils # (Manual) Nucleated RBC % Basophils # (Manual) PT INR APTT Heparin Anti-Xa Level ABG pH POC ABG pO2 ABG pO2 ABG HCO3 ABG O2 Saturation ABG Base Excess POC ABG pCO2 ABG Hemoglobin ABG Oxyhemoglobin ABG Chloride ABG Glucose Oxyhemoglobin Sodium Potassium Chloride Carbon Dioxide BUN Creatinine Glucose POC Glucose 156 H 133 H 155 H Lactic Acid Calcium Phosphorus Magnesium AST ALT Lactate Dehydrogenase Total Bilirubin Direct Bilirubin CK-MB (CK-2) C-Reactive Protein NT-Pro-B Natriuret Pep Total Protein Albumin Arterial Blood Glucose Urine WBC (Auto) Urine Creatinine 01/22/20 01/23/20 01/23/20 23:22 05:37 12:59 WBC RBC Hgb Hct MCHC RDW MCV MCH Lymph % (Auto) [place] % (Auto) [place] # Eos # Lymph # (Auto) [place] # (Auto) Eos # (Auto) Seg Neutrophils % Seg Neuts % (Manual) Baso # (Auto) Lymphocytes % (Manual) Monocytes % (Manual) Eosinophils % (Manual) Basophils % (Manual) Seg Neutrophils # Seg Neutrophils # Man Lymphocytes # (Manual) Monocytes # (Manual) Eosinophils # (Manual) Nucleated RBC % Basophils # (Manual) PT INR APTT Heparin Anti-Xa Level ABG pH POC ABG pO2 ABG pO2 ABG HCO3 ABG O2 Saturation ABG Base Excess POC ABG pCO2 ABG Hemoglobin ABG Oxyhemoglobin ABG Chloride ABG Glucose Oxyhemoglobin Sodium Potassium Chloride Carbon Dioxide BUN Creatinine Glucose POC Glucose 148 H 163 H 175 H Lactic Acid Calcium Phosphorus Magnesium AST ALT Lactate Dehydrogenase Total Bilirubin Direct Bilirubin CK-MB (CK-2) C-Reactive Protein NT-Pro-B Natriuret Pep Total Protein Albumin Arterial Blood Glucose Urine WBC (Auto) Urine Creatinine 01/23/20 01/23/20 01/24/20 17:28 23:56 04:30 WBC RBC 3.46 L Hgb 8.8 L Hct 27.8 L MCHC RDW 18.2 H MCV 81 L MCH 25 L Lymph % (Auto) [place] % (Auto) 7.8 H [place] # Eos # Lymph # (Auto) [place] # (Auto) Eos # (Auto) Seg Neutrophils % Seg Neuts % (Manual) Baso # (Auto) Lymphocytes % (Manual) Monocytes % (Manual) Eosinophils % (Manual) Basophils % (Manual) Seg Neutrophils # Seg Neutrophils # Man Lymphocytes # (Manual) Monocytes # (Manual) Eosinophils # (Manual) Nucleated RBC % Basophils # (Manual) PT INR APTT Heparin Anti-Xa Level ABG pH POC ABG pO2 ABG pO2 ABG HCO3 ABG O2 Saturation ABG Base Excess POC ABG pCO2 ABG Hemoglobin ABG Oxyhemoglobin ABG Chloride ABG Glucose Oxyhemoglobin Sodium Potassium Chloride Carbon Dioxide BUN Creatinine Glucose POC Glucose 165 H 177 H Lactic Acid Calcium Phosphorus Magnesium AST ALT Lactate Dehydrogenase Total Bilirubin Direct Bilirubin CK-MB (CK-2) C-Reactive Protein NT-Pro-B Natriuret Pep Total Protein Albumin Arterial Blood Glucose Urine WBC (Auto) Urine Creatinine 01/24/20 01/24/20 01/24/20 04:30 07:18 12:06 WBC RBC Hgb Hct MCHC RDW MCV MCH Lymph % (Auto) [place] % (Auto) [place] # Eos # Lymph # (Auto) [place] # (Auto) Eos # (Auto) Seg Neutrophils % Seg Neuts % (Manual) Baso # (Auto) Lymphocytes % (Manual) Monocytes % (Manual) Eosinophils % (Manual) Basophils % (Manual) Seg Neutrophils # Seg Neutrophils # Man Lymphocytes # (Manual) Monocytes # (Manual) Eosinophils # (Manual) Nucleated RBC % Basophils # (Manual) PT INR APTT Heparin Anti-Xa Level ABG pH POC ABG pO2 ABG pO2 ABG HCO3 ABG O2 Saturation ABG Base Excess POC ABG pCO2 ABG Hemoglobin ABG Oxyhemoglobin ABG Chloride ABG Glucose Oxyhemoglobin Sodium Potassium Chloride 97.9 L Carbon Dioxide BUN 31 H Creatinine Glucose 146 H POC Glucose 151 H 133 H Lactic Acid Calcium Phosphorus Magnesium AST ALT Lactate Dehydrogenase Total Bilirubin Direct Bilirubin CK-MB (CK-2) C-Reactive Protein NT-Pro-B Natriuret Pep Total Protein Albumin Arterial Blood Glucose Urine WBC (Auto) Urine Creatinine 01/24/20 01/25/20 01/25/20 17:36 00:08 04:25 WBC RBC 3.50 L Hgb 8.7 L Hct 27.9 L MCHC 31 L RDW 18.2 H MCV 80 L MCH 25 L Lymph % (Auto) [place] % (Auto) 8.5 H [place] # Eos # Lymph # (Auto) [place] # (Auto) Eos # (Auto) Seg Neutrophils % Seg Neuts % (Manual) Baso # (Auto) Lymphocytes % (Manual) Monocytes % (Manual) Eosinophils % (Manual) Basophils % (Manual) Seg Neutrophils # Seg Neutrophils # Man Lymphocytes # (Manual) Monocytes # (Manual) Eosinophils # (Manual) Nucleated RBC % Basophils # (Manual) PT INR APTT Heparin Anti-Xa Level ABG pH POC ABG pO2 ABG pO2 ABG HCO3 ABG O2 Saturation ABG Base Excess POC ABG pCO2 ABG Hemoglobin ABG Oxyhemoglobin ABG Chloride ABG Glucose Oxyhemoglobin Sodium Potassium Chloride Carbon Dioxide BUN Creatinine Glucose POC Glucose 133 H 129 H Lactic Acid Calcium Phosphorus Magnesium AST ALT Lactate Dehydrogenase Total Bilirubin Direct Bilirubin CK-MB (CK-2) C-Reactive Protein NT-Pro-B Natriuret Pep Total Protein Albumin Arterial Blood Glucose Urine WBC (Auto) Urine Creatinine 01/25/20 01/25/20 01/25/20 04:25 05:38 11:52 WBC RBC Hgb Hct MCHC RDW MCV MCH Lymph % (Auto) [place] % (Auto) [place] # Eos # Lymph # (Auto) [place] # (Auto) Eos # (Auto) Seg Neutrophils % Seg Neuts % (Manual) Baso # (Auto) Lymphocytes % (Manual) Monocytes % (Manual) Eosinophils % (Manual) Basophils % (Manual) Seg Neutrophils # Seg Neutrophils # Man Lymphocytes # (Manual) Monocytes # (Manual) Eosinophils # (Manual) Nucleated RBC % Basophils # (Manual) PT INR APTT Heparin Anti-Xa Level ABG pH POC ABG pO2 ABG pO2 ABG HCO3 ABG O2 Saturation ABG Base Excess POC ABG pCO2 ABG Hemoglobin ABG Oxyhemoglobin ABG Chloride ABG Glucose Oxyhemoglobin Sodium Potassium Chloride Carbon Dioxide BUN 30 H Creatinine Glucose 134 H POC Glucose 129 H 134 H Lactic Acid Calcium Phosphorus Magnesium AST ALT Lactate Dehydrogenase Total Bilirubin Direct Bilirubin CK-MB (CK-2) C-Reactive Protein NT-Pro-B Natriuret Pep Total Protein Albumin Arterial Blood Glucose Urine WBC (Auto) Urine Creatinine 01/25/20 01/25/20 01/26/20 17:13 21:02 00:59 WBC RBC Hgb Hct MCHC RDW MCV MCH Lymph % (Auto) [place] % (Auto) [place] # Eos # Lymph # (Auto) [place] # (Auto) Eos # (Auto) Seg Neutrophils % Seg Neuts % (Manual) Baso # (Auto) Lymphocytes % (Manual) Monocytes % (Manual) Eosinophils % (Manual) Basophils % (Manual) Seg Neutrophils # Seg Neutrophils # Man Lymphocytes # (Manual) Monocytes # (Manual) Eosinophils # (Manual) Nucleated RBC % Basophils # (Manual) PT INR APTT Heparin Anti-Xa Level ABG pH POC ABG pO2 ABG pO2 57.5 L ABG HCO3 31.7 H ABG O2 Saturation 90.3 L ABG Base Excess 6.6 H POC ABG pCO2 ABG Hemoglobin 13.0 L ABG Oxyhemoglobin ABG Chloride ABG Glucose Oxyhemoglobin 87.5 L Sodium Potassium Chloride Carbon Dioxide BUN Creatinine Glucose POC Glucose 124 H 196 H Lactic Acid Calcium Phosphorus Magnesium AST ALT Lactate Dehydrogenase Total Bilirubin Direct Bilirubin CK-MB (CK-2) C-Reactive Protein NT-Pro-B Natriuret Pep Total Protein Albumin Arterial Blood Glucose Urine WBC (Auto) Urine Creatinine 01/26/20 01/26/20 01/26/20 03:20 05:46 12:46 WBC RBC Hgb 9.2 L Hct 29.4 L MCHC RDW MCV MCH Lymph % (Auto) [place] % (Auto) [place] # Eos # Lymph # (Auto) [place] # (Auto) Eos # (Auto) Seg Neutrophils % Seg Neuts % (Manual) Baso # (Auto) Lymphocytes % (Manual) Monocytes % (Manual) Eosinophils % (Manual) Basophils % (Manual) Seg Neutrophils # Seg Neutrophils # Man Lymphocytes # (Manual) Monocytes # (Manual) Eosinophils # (Manual) Nucleated RBC % Basophils # (Manual) PT INR APTT Heparin Anti-Xa Level ABG pH POC ABG pO2 ABG pO2 ABG HCO3 ABG O2 Saturation ABG Base Excess POC ABG pCO2 ABG Hemoglobin ABG Oxyhemoglobin ABG Chloride ABG Glucose Oxyhemoglobin Sodium Potassium Chloride Carbon Dioxide BUN Creatinine Glucose POC Glucose 141 H 122 H Lactic Acid Calcium Phosphorus Magnesium AST ALT Lactate Dehydrogenase Total Bilirubin Direct Bilirubin CK-MB (CK-2) C-Reactive Protein NT-Pro-B Natriuret Pep Total Protein Albumin Arterial Blood Glucose Urine WBC (Auto) Urine Creatinine 01/26/20 01/26/20 01/27/20 18:03 23:55 04:47 WBC RBC Hgb Hct MCHC RDW MCV MCH Lymph % (Auto) [place] % (Auto) [place] # Eos # Lymph # (Auto) [place] # (Auto) Eos # (Auto) Seg Neutrophils % Seg Neuts % (Manual) Baso # (Auto) Lymphocytes % (Manual) Monocytes % (Manual) Eosinophils % (Manual) Basophils % (Manual) Seg Neutrophils # Seg Neutrophils # Man Lymphocytes # (Manual) Monocytes # (Manual) Eosinophils # (Manual) Nucleated RBC % Basophils # (Manual) PT INR APTT Heparin Anti-Xa Level ABG pH POC ABG pO2 ABG pO2 ABG HCO3 ABG O2 Saturation ABG Base Excess POC ABG pCO2 ABG Hemoglobin ABG Oxyhemoglobin ABG Chloride ABG Glucose Oxyhemoglobin Sodium Potassium Chloride Carbon Dioxide BUN 30 H Creatinine 0.7 L Glucose 135 H POC Glucose 142 H 159 H Lactic Acid Calcium Phosphorus Magnesium AST ALT Lactate Dehydrogenase Total Bilirubin Direct Bilirubin CK-MB (CK-2) C-Reactive Protein NT-Pro-B Natriuret Pep Total Protein Albumin Arterial Blood Glucose Urine WBC (Auto) Urine Creatinine 01/27/20 01/27/20 01/27/20 05:43 12:06 17:16 WBC RBC Hgb Hct MCHC RDW MCV MCH Lymph % (Auto) [place] % (Auto) [place] # Eos # Lymph # (Auto) [place] # (Auto) Eos # (Auto) Seg Neutrophils % Seg Neuts % (Manual) Baso # (Auto) Lymphocytes % (Manual) Monocytes % (Manual) Eosinophils % (Manual) Basophils % (Manual) Seg Neutrophils # Seg Neutrophils # Man Lymphocytes # (Manual) Monocytes # (Manual) Eosinophils # (Manual) Nucleated RBC % Basophils # (Manual) PT INR APTT Heparin Anti-Xa Level ABG pH POC ABG pO2 ABG pO2 ABG HCO3 ABG O2 Saturation ABG Base Excess POC ABG pCO2 ABG Hemoglobin ABG Oxyhemoglobin ABG Chloride ABG Glucose Oxyhemoglobin Sodium Potassium Chloride Carbon Dioxide BUN Creatinine Glucose POC Glucose 143 H 142 H 128 H Lactic Acid Calcium Phosphorus Magnesium AST ALT Lactate Dehydrogenase Total Bilirubin Direct Bilirubin CK-MB (CK-2) C-Reactive Protein NT-Pro-B Natriuret Pep Total Protein Albumin Arterial Blood Glucose Urine WBC (Auto) Urine Creatinine 01/27/20 01/28/20 01/28/20 23:55 04:37 05:55 WBC RBC Hgb 9.4 L Hct 29.9 L MCHC RDW MCV MCH Lymph % (Auto) [place] % (Auto) [place] # Eos # Lymph # (Auto) [place] # (Auto) Eos # (Auto) Seg Neutrophils % Seg Neuts % (Manual) Baso # (Auto) Lymphocytes % (Manual) Monocytes % (Manual) Eosinophils % (Manual) Basophils % (Manual) Seg Neutrophils # Seg Neutrophils # Man Lymphocytes # (Manual) Monocytes # (Manual) Eosinophils # (Manual) Nucleated RBC % Basophils # (Manual) PT INR APTT Heparin Anti-Xa Level ABG pH POC ABG pO2 ABG pO2 ABG HCO3 ABG O2 Saturation ABG Base Excess POC ABG pCO2 ABG Hemoglobin ABG Oxyhemoglobin ABG Chloride ABG Glucose Oxyhemoglobin Sodium Potassium Chloride Carbon Dioxide BUN Creatinine Glucose POC Glucose 166 H 169 H Lactic Acid Calcium Phosphorus Magnesium AST ALT Lactate Dehydrogenase Total Bilirubin Direct Bilirubin CK-MB (CK-2) C-Reactive Protein NT-Pro-B Natriuret Pep Total Protein Albumin Arterial Blood Glucose Urine WBC (Auto) Urine Creatinine 01/28/20 01/28/20 01/28/20 11:58 17:26 23:46 WBC RBC Hgb Hct MCHC RDW MCV MCH Lymph % (Auto) [place] % (Auto) [place] # Eos # Lymph # (Auto) [place] # (Auto) Eos # (Auto) Seg Neutrophils % Seg Neuts % (Manual) Baso # (Auto) Lymphocytes % (Manual) Monocytes % (Manual) Eosinophils % (Manual) Basophils % (Manual) Seg Neutrophils # Seg Neutrophils # Man Lymphocytes # (Manual) Monocytes # (Manual) Eosinophils # (Manual) Nucleated RBC % Basophils # (Manual) PT INR APTT Heparin Anti-Xa Level ABG pH POC ABG pO2 ABG pO2 ABG HCO3 ABG O2 Saturation ABG Base Excess POC ABG pCO2 ABG Hemoglobin ABG Oxyhemoglobin ABG Chloride ABG Glucose Oxyhemoglobin Sodium Potassium Chloride Carbon Dioxide BUN Creatinine Glucose POC Glucose 130 H 126 H 150 H Lactic Acid Calcium Phosphorus Magnesium AST ALT Lactate Dehydrogenase Total Bilirubin Direct Bilirubin CK-MB (CK-2) C-Reactive Protein NT-Pro-B Natriuret Pep Total Protein Albumin Arterial Blood Glucose Urine WBC (Auto) Urine Creatinine 01/29/20 01/29/20 01/29/20 04:55 06:00 12:28 WBC RBC Hgb Hct MCHC RDW MCV MCH Lymph % (Auto) [place] % (Auto) [place] # Eos # Lymph # (Auto) [place] # (Auto) Eos # (Auto) Seg Neutrophils % Seg Neuts % (Manual) Baso # (Auto) Lymphocytes % (Manual) Monocytes % (Manual) Eosinophils % (Manual) Basophils % (Manual) Seg Neutrophils # Seg Neutrophils # Man Lymphocytes # (Manual) Monocytes # (Manual) Eosinophils # (Manual) Nucleated RBC % Basophils # (Manual) PT INR APTT Heparin Anti-Xa Level ABG pH POC ABG pO2 ABG pO2 ABG HCO3 ABG O2 Saturation ABG Base Excess POC ABG pCO2 ABG Hemoglobin ABG Oxyhemoglobin ABG Chloride ABG Glucose Oxyhemoglobin Sodium Potassium Chloride Carbon Dioxide 34 H BUN Creatinine 0.6 L Glucose 152 H POC Glucose 157 H 156 H Lactic Acid Calcium Phosphorus Magnesium AST ALT Lactate Dehydrogenase Total Bilirubin Direct Bilirubin CK-MB (CK-2) C-Reactive Protein NT-Pro-B Natriuret Pep Total Protein Albumin Arterial Blood Glucose Urine WBC (Auto) Urine Creatinine 01/29/20 01/30/20 01/30/20 19:06 00:29 05:39 WBC RBC Hgb Hct MCHC RDW MCV MCH Lymph % (Auto) [place] % (Auto) [place] # Eos # Lymph # (Auto) [place] # (Auto) Eos # (Auto) Seg Neutrophils % Seg Neuts % (Manual) Baso # (Auto) Lymphocytes % (Manual) Monocytes % (Manual) Eosinophils % (Manual) Basophils % (Manual) Seg Neutrophils # Seg Neutrophils # Man Lymphocytes # (Manual) Monocytes # (Manual) Eosinophils # (Manual) Nucleated RBC % Basophils # (Manual) PT INR APTT Heparin Anti-Xa Level ABG pH POC ABG pO2 ABG pO2 ABG HCO3 ABG O2 Saturation ABG Base Excess POC ABG pCO2 ABG Hemoglobin ABG Oxyhemoglobin ABG Chloride ABG Glucose Oxyhemoglobin Sodium Potassium Chloride Carbon Dioxide BUN Creatinine Glucose POC Glucose 152 H 132 H 159 H Lactic Acid Calcium Phosphorus Magnesium AST ALT Lactate Dehydrogenase Total Bilirubin Direct Bilirubin CK-MB (CK-2) C-Reactive Protein NT-Pro-B Natriuret Pep Total Protein Albumin Arterial Blood Glucose Urine WBC (Auto) Urine Creatinine 01/30/20 01/30/20 01/30/20 12:27 17:42 23:28 WBC RBC Hgb Hct MCHC RDW MCV MCH Lymph % (Auto) [place] % (Auto) [place] # Eos # Lymph # (Auto) [place] # (Auto) Eos # (Auto) Seg Neutrophils % Seg Neuts % (Manual) Baso # (Auto) Lymphocytes % (Manual) Monocytes % (Manual) Eosinophils % (Manual) Basophils % (Manual) Seg Neutrophils # Seg Neutrophils # Man Lymphocytes # (Manual) Monocytes # (Manual) Eosinophils # (Manual) Nucleated RBC % Basophils # (Manual) PT INR APTT Heparin Anti-Xa Level ABG pH POC ABG pO2 ABG pO2 ABG HCO3 ABG O2 Saturation ABG Base Excess POC ABG pCO2 ABG Hemoglobin ABG Oxyhemoglobin ABG Chloride ABG Glucose Oxyhemoglobin Sodium Potassium Chloride Carbon Dioxide BUN Creatinine Glucose POC Glucose 151 H 144 H 164 H Lactic Acid Calcium Phosphorus Magnesium AST ALT Lactate Dehydrogenase Total Bilirubin Direct Bilirubin CK-MB (CK-2) C-Reactive Protein NT-Pro-B Natriuret Pep Total Protein Albumin Arterial Blood Glucose Urine WBC (Auto) Urine Creatinine 01/31/20 01/31/20 01/31/20 05:51 11:51 18:06 WBC RBC Hgb Hct MCHC RDW MCV MCH Lymph % (Auto) [place] % (Auto) [place] # Eos # Lymph # (Auto) [place] # (Auto) Eos # (Auto) Seg Neutrophils % Seg Neuts % (Manual) Baso # (Auto) Lymphocytes % (Manual) Monocytes % (Manual) Eosinophils % (Manual) Basophils % (Manual) Seg Neutrophils # Seg Neutrophils # Man Lymphocytes # (Manual) Monocytes # (Manual) Eosinophils # (Manual) Nucleated RBC % Basophils # (Manual) PT INR APTT Heparin Anti-Xa Level ABG pH POC ABG pO2 ABG pO2 ABG HCO3 ABG O2 Saturation ABG Base Excess POC ABG pCO2 ABG Hemoglobin ABG Oxyhemoglobin ABG Chloride ABG Glucose Oxyhemoglobin Sodium Potassium Chloride Carbon Dioxide BUN Creatinine Glucose POC Glucose 131 H 167 H 210 H Lactic Acid Calcium Phosphorus Magnesium AST ALT Lactate Dehydrogenase Total Bilirubin Direct Bilirubin CK-MB (CK-2) C-Reactive Protein NT-Pro-B Natriuret Pep Total Protein Albumin Arterial Blood Glucose Urine WBC (Auto) Urine Creatinine 01/31/20 01/31/20 02/01/20 19:24 Unknown 00:34 WBC RBC Hgb Hct MCHC RDW MCV MCH Lymph % (Auto) [place] % (Auto) [place] # Eos # Lymph # (Auto) [place] # (Auto) Eos # (Auto) Seg Neutrophils % Seg Neuts % (Manual) Baso # (Auto) Lymphocytes % (Manual) Monocytes % (Manual) Eosinophils % (Manual) Basophils % (Manual) Seg Neutrophils # Seg Neutrophils # Man Lymphocytes # (Manual) Monocytes # (Manual) Eosinophils # (Manual) Nucleated RBC % Basophils # (Manual) PT INR APTT Heparin Anti-Xa Level ABG pH POC ABG pO2 ABG pO2 ABG HCO3 ABG O2 Saturation ABG Base Excess POC ABG pCO2 ABG Hemoglobin ABG Oxyhemoglobin ABG Chloride ABG Glucose Oxyhemoglobin Sodium Potassium Chloride 95.3 L Carbon Dioxide 33 H BUN 36 H Creatinine Glucose 187 H POC Glucose 116 H Lactic Acid Calcium Phosphorus Magnesium AST ALT Lactate Dehydrogenase Total Bilirubin Direct Bilirubin CK-MB (CK-2) C-Reactive Protein NT-Pro-B Natriuret Pep Total Protein Albumin Arterial Blood Glucose Urine WBC (Auto) Urine Creatinine 57.4 H 02/01/20 02/01/20 02/01/20 05:24 10:40 12:29 WBC RBC Hgb Hct MCHC RDW MCV MCH Lymph % (Auto) [place] % (Auto) [place] # Eos # Lymph # (Auto) [place] # (Auto) Eos # (Auto) Seg Neutrophils % Seg Neuts % (Manual) Baso # (Auto) Lymphocytes % (Manual) Monocytes % (Manual) Eosinophils % (Manual) Basophils % (Manual) Seg Neutrophils # Seg Neutrophils # Man Lymphocytes # (Manual) Monocytes # (Manual) Eosinophils # (Manual) Nucleated RBC % Basophils # (Manual) PT INR APTT Heparin Anti-Xa Level ABG pH POC ABG pO2 ABG pO2 ABG HCO3 ABG O2 Saturation ABG Base Excess POC ABG pCO2 ABG Hemoglobin ABG Oxyhemoglobin ABG Chloride ABG Glucose Oxyhemoglobin Sodium Potassium Chloride Carbon Dioxide BUN Creatinine Glucose POC Glucose 142 H 165 H 151 H Lactic Acid Calcium Phosphorus Magnesium AST ALT Lactate Dehydrogenase Total Bilirubin Direct Bilirubin CK-MB (CK-2) C-Reactive Protein NT-Pro-B Natriuret Pep Total Protein Albumin Arterial Blood Glucose Urine WBC (Auto) Urine Creatinine 02/01/20 02/01/20 02/02/20 17:16 23:23 06:36 WBC RBC Hgb Hct MCHC RDW MCV MCH Lymph % (Auto) [place] % (Auto) [place] # Eos # Lymph # (Auto) [place] # (Auto) Eos # (Auto) Seg Neutrophils % Seg Neuts % (Manual) Baso # (Auto) Lymphocytes % (Manual) Monocytes % (Manual) Eosinophils % (Manual) Basophils % (Manual) Seg Neutrophils # Seg Neutrophils # Man Lymphocytes # (Manual) Monocytes # (Manual) Eosinophils # (Manual) Nucleated RBC % Basophils # (Manual) PT INR APTT Heparin Anti-Xa Level ABG pH POC ABG pO2 ABG pO2 ABG HCO3 ABG O2 Saturation ABG Base Excess POC ABG pCO2 ABG Hemoglobin ABG Oxyhemoglobin ABG Chloride ABG Glucose Oxyhemoglobin Sodium Potassium Chloride Carbon Dioxide BUN Creatinine Glucose POC Glucose 137 H 145 H 181 H Lactic Acid Calcium Phosphorus Magnesium AST ALT Lactate Dehydrogenase Total Bilirubin Direct Bilirubin CK-MB (CK-2) C-Reactive Protein NT-Pro-B Natriuret Pep Total Protein Albumin Arterial Blood Glucose Urine WBC (Auto) Urine Creatinine 02/02/20 02/02/20 02/02/20 10:01 12:05 17:54 WBC RBC Hgb Hct MCHC RDW MCV MCH Lymph % (Auto) [place] % (Auto) [place] # Eos # Lymph # (Auto) [place] # (Auto) Eos # (Auto) Seg Neutrophils % Seg Neuts % (Manual) Baso # (Auto) Lymphocytes % (Manual) Monocytes % (Manual) Eosinophils % (Manual) Basophils % (Manual) Seg Neutrophils # Seg Neutrophils # Man Lymphocytes # (Manual) Monocytes # (Manual) Eosinophils # (Manual) Nucleated RBC % Basophils # (Manual) PT INR APTT Heparin Anti-Xa Level ABG pH POC ABG pO2 ABG pO2 ABG HCO3 ABG O2 Saturation ABG Base Excess POC ABG pCO2 ABG Hemoglobin ABG Oxyhemoglobin ABG Chloride ABG Glucose Oxyhemoglobin Sodium Potassium Chloride 95.3 L Carbon Dioxide BUN 44 H Creatinine Glucose 234 H POC Glucose 184 H 127 H Lactic Acid Calcium Phosphorus Magnesium AST 363 H ALT 457 H Lactate Dehydrogenase Total Bilirubin Direct Bilirubin CK-MB (CK-2) C-Reactive Protein NT-Pro-B Natriuret Pep Total Protein Albumin 3.0 L Arterial Blood Glucose Urine WBC (Auto) Urine Creatinine 02/02/20 02/03/20 02/03/20 23:47 05:32 07:04 WBC 13.0 H RBC Hgb 9.5 L Hct 30.8 L MCHC 31 L RDW 19.6 H MCV 81 L MCH 25 L Lymph % (Auto) [place] % (Auto) 9.4 H [place] # Eos # Lymph # (Auto) [place] # (Auto) 1.2 H Eos # (Auto) Seg Neutrophils % 72.3 H Seg Neuts % (Manual) Baso # (Auto) Lymphocytes % (Manual) Monocytes % (Manual) Eosinophils % (Manual) Basophils % (Manual) Seg Neutrophils # 9.4 H Seg Neutrophils # Man Lymphocytes # (Manual) Monocytes # (Manual) Eosinophils # (Manual) Nucleated RBC % Basophils # (Manual) PT INR APTT Heparin Anti-Xa Level ABG pH POC ABG pO2 ABG pO2 ABG HCO3 ABG O2 Saturation ABG Base Excess POC ABG pCO2 ABG Hemoglobin ABG Oxyhemoglobin ABG Chloride ABG Glucose Oxyhemoglobin Sodium Potassium Chloride Carbon Dioxide BUN Creatinine Glucose POC Glucose 124 H 129 H Lactic Acid Calcium Phosphorus Magnesium AST ALT Lactate Dehydrogenase Total Bilirubin Direct Bilirubin CK-MB (CK-2) C-Reactive Protein NT-Pro-B Natriuret Pep Total Protein Albumin Arterial Blood Glucose Urine WBC (Auto) Urine Creatinine 02/03/20 02/03/20 02/03/20 07:04 11:32 12:49 WBC RBC Hgb Hct MCHC RDW MCV MCH Lymph % (Auto) [place] % (Auto) [place] # Eos # Lymph # (Auto) [place] # (Auto) Eos # (Auto) Seg Neutrophils % Seg Neuts % (Manual) Baso # (Auto) Lymphocytes % (Manual) Monocytes % (Manual) Eosinophils % (Manual) Basophils % (Manual) Seg Neutrophils # Seg Neutrophils # Man Lymphocytes # (Manual) Monocytes # (Manual) Eosinophils # (Manual) Nucleated RBC % Basophils # (Manual) PT INR APTT Heparin Anti-Xa Level ABG pH POC ABG pO2 ABG pO2 ABG HCO3 ABG O2 Saturation ABG Base Excess POC ABG pCO2 ABG Hemoglobin ABG Oxyhemoglobin ABG Chloride ABG Glucose Oxyhemoglobin Sodium Potassium Chloride 97.9 L Carbon Dioxide 33 H BUN 39 H Creatinine Glucose 119 H POC Glucose 138 H Lactic Acid Calcium Phosphorus Magnesium 2.60 H AST ALT Lactate Dehydrogenase Total Bilirubin Direct Bilirubin CK-MB (CK-2) C-Reactive Protein NT-Pro-B Natriuret Pep Total Protein Albumin Arterial Blood Glucose Urine WBC (Auto) Urine Creatinine 02/03/20 02/04/20 02/04/20 18:28 16:24 16:24 WBC RBC 3.38 L Hgb 8.6 L Hct 26.9 L MCHC RDW 19.5 H MCV 80 L MCH 26 L Lymph % (Auto) [place] % (Auto) [place] # Eos # Lymph # (Auto) [place] # (Auto) Eos # (Auto) Seg Neutrophils % Seg Neuts % (Manual) Baso # (Auto) Lymphocytes % (Manual) Monocytes % (Manual) Eosinophils % (Manual) Basophils % (Manual) Seg Neutrophils # Seg Neutrophils # Man Lymphocytes # (Manual) Monocytes # (Manual) Eosinophils # (Manual) Nucleated RBC % Basophils # (Manual) PT INR APTT Heparin Anti-Xa Level ABG pH POC ABG pO2 ABG pO2 ABG HCO3 ABG O2 Saturation ABG Base Excess POC ABG pCO2 ABG Hemoglobin ABG Oxyhemoglobin ABG Chloride ABG Glucose Oxyhemoglobin Sodium Potassium 3.4 L Chloride Carbon Dioxide 31 H BUN 37 H Creatinine Glucose 70 L POC Glucose 118 H Lactic Acid Calcium Phosphorus Magnesium AST 169 H ALT 394 H Lactate Dehydrogenase Total Bilirubin 1.50 H Direct Bilirubin CK-MB (CK-2) C-Reactive Protein NT-Pro-B Natriuret Pep Total Protein Albumin 2.9 L Arterial Blood Glucose Urine WBC (Auto) Urine Creatinine 02/05/20 02/05/20 02/05/20 00:41 06:37 17:14 WBC RBC Hgb Hct MCHC RDW MCV MCH Lymph % (Auto) [place] % (Auto) [place] # Eos # Lymph # (Auto) [place] # (Auto) Eos # (Auto) Seg Neutrophils % Seg Neuts % (Manual) Baso # (Auto) Lymphocytes % (Manual) Monocytes % (Manual) Eosinophils % (Manual) Basophils % (Manual) Seg Neutrophils # Seg Neutrophils # Man Lymphocytes # (Manual) Monocytes # (Manual) Eosinophils # (Manual) Nucleated RBC % Basophils # (Manual) PT INR APTT Heparin Anti-Xa Level ABG pH POC ABG pO2 ABG pO2 ABG HCO3 ABG O2 Saturation ABG Base Excess POC ABG pCO2 ABG Hemoglobin ABG Oxyhemoglobin ABG Chloride ABG Glucose Oxyhemoglobin Sodium Potassium 3.1 L Chloride Carbon Dioxide 35 H BUN 32 H Creatinine 0.7 L Glucose POC Glucose 69 L 127 H Lactic Acid Calcium Phosphorus Magnesium AST 134 H ALT 352 H Lactate Dehydrogenase Total Bilirubin 1.60 H Direct Bilirubin CK-MB (CK-2) C-Reactive Protein NT-Pro-B Natriuret Pep Total Protein Albumin 2.9 L Arterial Blood Glucose Urine WBC (Auto) Urine Creatinine 02/05/20 02/06/20 02/06/20 23:43 05:32 08:01 WBC RBC Hgb Hct MCHC RDW MCV MCH Lymph % (Auto) [place] % (Auto) [place] # Eos # Lymph # (Auto) [place] # (Auto) Eos # (Auto) Seg Neutrophils % Seg Neuts % (Manual) Baso # (Auto) Lymphocytes % (Manual) Monocytes % (Manual) Eosinophils % (Manual) Basophils % (Manual) Seg Neutrophils # Seg Neutrophils # Man Lymphocytes # (Manual) Monocytes # (Manual) Eosinophils # (Manual) Nucleated RBC % Basophils # (Manual) PT INR APTT Heparin Anti-Xa Level ABG pH POC ABG pO2 ABG pO2 ABG HCO3 ABG O2 Saturation ABG Base Excess POC ABG pCO2 ABG Hemoglobin ABG Oxyhemoglobin ABG Chloride ABG Glucose Oxyhemoglobin Sodium Potassium Chloride Carbon Dioxide BUN 40 H Creatinine Glucose 132 H POC Glucose 129 H 131 H Lactic Acid Calcium Phosphorus Magnesium AST ALT Lactate Dehydrogenase Total Bilirubin Direct Bilirubin CK-MB (CK-2) C-Reactive Protein NT-Pro-B Natriuret Pep Total Protein Albumin Arterial Blood Glucose Urine WBC (Auto) Urine Creatinine 02/06/20 02/06/20 02/06/20 11:51 16:28 17:32 WBC RBC Hgb Hct MCHC RDW MCV MCH Lymph % (Auto) [place] % (Auto) [place] # Eos # Lymph # (Auto) [place] # (Auto) Eos # (Auto) Seg Neutrophils % Seg Neuts % (Manual) Baso # (Auto) Lymphocytes % (Manual) Monocytes % (Manual) Eosinophils % (Manual) Basophils % (Manual) Seg Neutrophils # Seg Neutrophils # Man Lymphocytes # (Manual) Monocytes # (Manual) Eosinophils # (Manual) Nucleated RBC % Basophils # (Manual) PT INR APTT Heparin Anti-Xa Level ABG pH POC ABG pO2 ABG pO2 ABG HCO3 ABG O2 Saturation ABG Base Excess POC ABG pCO2 ABG Hemoglobin ABG Oxyhemoglobin ABG Chloride ABG Glucose Oxyhemoglobin Sodium Potassium Chloride Carbon Dioxide BUN Creatinine Glucose POC Glucose 167 H 129 H Lactic Acid Calcium Phosphorus Magnesium AST 824 H ALT 948 H Lactate Dehydrogenase Total Bilirubin 1.70 H Direct Bilirubin 1.2 H CK-MB (CK-2) C-Reactive Protein NT-Pro-B Natriuret Pep Total Protein Albumin 2.9 L Arterial Blood Glucose Urine WBC (Auto) Urine Creatinine 02/07/20 02/07/20 02/07/20 00:11 04:57 04:57 WBC RBC Hgb 9.2 L Hct 29.7 L MCHC 31 L RDW 20.2 H MCV 80 L MCH 25 L Lymph % (Auto) [place] % (Auto) [place] # Eos # Lymph # (Auto) [place] # (Auto) Eos # (Auto) Seg Neutrophils % Seg Neuts % (Manual) Baso # (Auto) Lymphocytes % (Manual) Monocytes % (Manual) Eosinophils % (Manual) Basophils % (Manual) Seg Neutrophils # Seg Neutrophils # Man Lymphocytes # (Manual) Monocytes # (Manual) Eosinophils # (Manual) Nucleated RBC % Basophils # (Manual) PT INR APTT Heparin Anti-Xa Level ABG pH POC ABG pO2 ABG pO2 ABG HCO3 ABG O2 Saturation ABG Base Excess POC ABG pCO2 ABG Hemoglobin ABG Oxyhemoglobin ABG Chloride ABG Glucose Oxyhemoglobin Sodium Potassium 3.4 L D Chloride Carbon Dioxide 32 H BUN 39 H Creatinine Glucose 106 H POC Glucose 121 H Lactic Acid Calcium Phosphorus Magnesium AST ALT Lactate Dehydrogenase Total Bilirubin Direct Bilirubin CK-MB (CK-2) C-Reactive Protein NT-Pro-B Natriuret Pep Total Protein Albumin Arterial Blood Glucose Urine WBC (Auto) Urine Creatinine 02/07/20 02/07/20 02/07/20 15:03 15:03 17:11 WBC RBC Hgb Hct MCHC RDW MCV MCH Lymph % (Auto) [place] % (Auto) [place] # Eos # Lymph # (Auto) [place] # (Auto) Eos # (Auto) Seg Neutrophils % Seg Neuts % (Manual) Baso # (Auto) Lymphocytes % (Manual) Monocytes % (Manual) Eosinophils % (Manual) Basophils % (Manual) Seg Neutrophils # Seg Neutrophils # Man Lymphocytes # (Manual) Monocytes # (Manual) Eosinophils # (Manual) Nucleated RBC % Basophils # (Manual) PT 27.0 H INR 2.46 H APTT Heparin Anti-Xa Level ABG pH POC ABG pO2 ABG pO2 ABG HCO3 ABG O2 Saturation ABG Base Excess POC ABG pCO2 ABG Hemoglobin ABG Oxyhemoglobin ABG Chloride ABG Glucose Oxyhemoglobin Sodium Potassium Chloride Carbon Dioxide BUN Creatinine Glucose POC Glucose 109 H Lactic Acid Calcium Phosphorus Magnesium AST 424 H ALT 796 H Lactate Dehydrogenase Total Bilirubin 1.60 H Direct Bilirubin 1.2 H CK-MB (CK-2) C-Reactive Protein NT-Pro-B Natriuret Pep Total Protein Albumin 2.9 L Arterial Blood Glucose Urine WBC (Auto) Urine Creatinine 02/08/20 02/08/20 02/08/20 12:14 17:44 19:00 WBC RBC Hgb Hct MCHC RDW MCV MCH Lymph % (Auto) [place] % (Auto) [place] # Eos # Lymph # (Auto) [place] # (Auto) Eos # (Auto) Seg Neutrophils % Seg Neuts % (Manual) Baso # (Auto) Lymphocytes % (Manual) Monocytes % (Manual) Eosinophils % (Manual) Basophils % (Manual) Seg Neutrophils # Seg Neutrophils # Man Lymphocytes # (Manual) Monocytes # (Manual) Eosinophils # (Manual) Nucleated RBC % Basophils # (Manual) PT INR APTT Heparin Anti-Xa Level ABG pH POC ABG pO2 ABG pO2 ABG HCO3 ABG O2 Saturation ABG Base Excess POC ABG pCO2 ABG Hemoglobin ABG Oxyhemoglobin ABG Chloride ABG Glucose Oxyhemoglobin Sodium Potassium Chloride Carbon Dioxide BUN Creatinine Glucose POC Glucose 111 H 107 H Lactic Acid Calcium Phosphorus Magnesium AST 309 H ALT 650 H Lactate Dehydrogenase Total Bilirubin 1.30 H Direct Bilirubin 0.9 H CK-MB (CK-2) C-Reactive Protein NT-Pro-B Natriuret Pep Total Protein 6.2 L Albumin 2.7 L Arterial Blood Glucose Urine WBC (Auto) Urine Creatinine 02/09/20 02/09/20 02/09/20 05:41 12:28 18:07 WBC RBC Hgb Hct MCHC RDW MCV MCH Lymph % (Auto) [place] % (Auto) [place] # Eos # Lymph # (Auto) [place] # (Auto) Eos # (Auto) Seg Neutrophils % Seg Neuts % (Manual) Baso # (Auto) Lymphocytes % (Manual) Monocytes % (Manual) Eosinophils % (Manual) Basophils % (Manual) Seg Neutrophils # Seg Neutrophils # Man Lymphocytes # (Manual) Monocytes # (Manual) Eosinophils # (Manual) Nucleated RBC % Basophils # (Manual) PT INR APTT Heparin Anti-Xa Level ABG pH POC ABG pO2 ABG pO2 ABG HCO3 ABG O2 Saturation ABG Base Excess POC ABG pCO2 ABG Hemoglobin ABG Oxyhemoglobin ABG Chloride ABG Glucose Oxyhemoglobin Sodium Potassium Chloride Carbon Dioxide BUN Creatinine Glucose POC Glucose 113 H 140 H 143 H Lactic Acid Calcium Phosphorus Magnesium AST ALT Lactate Dehydrogenase Total Bilirubin Direct Bilirubin CK-MB (CK-2) C-Reactive Protein NT-Pro-B Natriuret Pep Total Protein Albumin Arterial Blood Glucose Urine WBC (Auto) Urine Creatinine 02/09/20 02/09/20 02/10/20 21:40 23:45 06:00 WBC RBC Hgb Hct MCHC RDW MCV MCH Lymph % (Auto) [place] % (Auto) [place] # Eos # Lymph # (Auto) [place] # (Auto) Eos # (Auto) Seg Neutrophils % Seg Neuts % (Manual) Baso # (Auto) Lymphocytes % (Manual) Monocytes % (Manual) Eosinophils % (Manual) Basophils % (Manual) Seg Neutrophils # Seg Neutrophils # Man Lymphocytes # (Manual) Monocytes # (Manual) Eosinophils # (Manual) Nucleated RBC % Basophils # (Manual) PT INR APTT Heparin Anti-Xa Level ABG pH POC ABG pO2 ABG pO2 59.8 L ABG HCO3 33.3 H ABG O2 Saturation 88.9 L ABG Base Excess 7.4 H POC ABG pCO2 ABG Hemoglobin 10.4 L ABG Oxyhemoglobin ABG Chloride ABG Glucose Oxyhemoglobin 86.3 L Sodium Potassium Chloride Carbon Dioxide BUN Creatinine Glucose POC Glucose 127 H 114 H Lactic Acid Calcium Phosphorus Magnesium AST ALT Lactate Dehydrogenase Total Bilirubin Direct Bilirubin CK-MB (CK-2) C-Reactive Protein NT-Pro-B Natriuret Pep Total Protein Albumin Arterial Blood Glucose Urine WBC (Auto) Urine Creatinine 02/10/20 02/10/20 02/10/20 07:40 07:40 13:38 WBC 11.5 H RBC Hgb 10.6 L Hct 34.7 L MCHC 31 L RDW 19.8 H MCV 79 L MCH 24 L Lymph % (Auto) [place] % (Auto) 9.2 H [place] # Eos # Lymph # (Auto) [place] # (Auto) 1.1 H Eos # (Auto) Seg Neutrophils % Seg Neuts % (Manual) Baso # (Auto) Lymphocytes % (Manual) Monocytes % (Manual) Eosinophils % (Manual) Basophils % (Manual) Seg Neutrophils # Seg Neutrophils # Man Lymphocytes # (Manual) Monocytes # (Manual) Eosinophils # (Manual) Nucleated RBC % Basophils # (Manual) PT INR APTT Heparin Anti-Xa Level ABG pH POC ABG pO2 ABG pO2 ABG HCO3 ABG O2 Saturation ABG Base Excess POC ABG pCO2 ABG Hemoglobin ABG Oxyhemoglobin ABG Chloride ABG Glucose Oxyhemoglobin Sodium 151 H Potassium Chloride 107.2 H Carbon Dioxide 36 H BUN 25 H Creatinine 0.7 L Glucose 114 H POC Glucose 116 H Lactic Acid Calcium Phosphorus Magnesium 2.40 H AST ALT Lactate Dehydrogenase Total Bilirubin Direct Bilirubin CK-MB (CK-2) C-Reactive Protein NT-Pro-B Natriuret Pep Total Protein Albumin Arterial Blood Glucose Urine WBC (Auto) Urine Creatinine 02/10/20 02/11/20 02/11/20 17:44 05:47 12:21 WBC RBC Hgb Hct MCHC RDW MCV MCH Lymph % (Auto) [place] % (Auto) [place] # Eos # Lymph # (Auto) [place] # (Auto) Eos # (Auto) Seg Neutrophils % Seg Neuts % (Manual) Baso # (Auto) Lymphocytes % (Manual) Monocytes % (Manual) Eosinophils % (Manual) Basophils % (Manual) Seg Neutrophils # Seg Neutrophils # Man Lymphocytes # (Manual) Monocytes # (Manual) Eosinophils # (Manual) Nucleated RBC % Basophils # (Manual) PT INR APTT Heparin Anti-Xa Level ABG pH POC ABG pO2 ABG pO2 ABG HCO3 ABG O2 Saturation ABG Base Excess POC ABG pCO2 ABG Hemoglobin ABG Oxyhemoglobin ABG Chloride ABG Glucose Oxyhemoglobin Sodium Potassium Chloride Carbon Dioxide BUN Creatinine Glucose POC Glucose 139 H 173 H 143 H Lactic Acid Calcium Phosphorus Magnesium AST ALT Lactate Dehydrogenase Total Bilirubin Direct Bilirubin CK-MB (CK-2) C-Reactive Protein NT-Pro-B Natriuret Pep Total Protein Albumin Arterial Blood Glucose Urine WBC (Auto) Urine Creatinine 02/11/20 02/11/20 02/12/20 13:43 14:11 00:15 WBC RBC Hgb Hct MCHC RDW MCV MCH Lymph % (Auto) [place] % (Auto) [place] # Eos # Lymph # (Auto) [place] # (Auto) Eos # (Auto) Seg Neutrophils % Seg Neuts % (Manual) Baso # (Auto) Lymphocytes % (Manual) Monocytes % (Manual) Eosinophils % (Manual) Basophils % (Manual) Seg Neutrophils # Seg Neutrophils # Man Lymphocytes # (Manual) Monocytes # (Manual) Eosinophils # (Manual) Nucleated RBC % Basophils # (Manual) PT INR APTT Heparin Anti-Xa Level ABG pH 7.502 H POC ABG pO2 77.7 L ABG pO2 ABG HCO3 ABG O2 Saturation ABG Base Excess POC ABG pCO2 ABG Hemoglobin 11.1 L ABG Oxyhemoglobin ABG Chloride 108.0 H ABG Glucose 151 H Oxyhemoglobin Sodium Potassium Chloride Carbon Dioxide BUN Creatinine Glucose POC Glucose 130 H 125 H Lactic Acid Calcium Phosphorus Magnesium AST ALT Lactate Dehydrogenase Total Bilirubin Direct Bilirubin CK-MB (CK-2) C-Reactive Protein NT-Pro-B Natriuret Pep Total Protein Albumin Arterial Blood Glucose 151 H Urine WBC (Auto) Urine Creatinine 02/12/20 02/12/20 02/12/20 04:56 04:56 17:42 WBC RBC Hgb 9.9 L Hct 31.8 L MCHC 31 L RDW 19.4 H MCV 79 L MCH 25 L Lymph % (Auto) [place] % (Auto) 10.3 H [place] # Eos # Lymph # (Auto) [place] # (Auto) 1.0 H Eos # (Auto) Seg Neutrophils % Seg Neuts % (Manual) Baso # (Auto) Lymphocytes % (Manual) Monocytes % (Manual) Eosinophils % (Manual) Basophils % (Manual) Seg Neutrophils # Seg Neutrophils # Man Lymphocytes # (Manual) Monocytes # (Manual) Eosinophils # (Manual) Nucleated RBC % Basophils # (Manual) PT INR APTT Heparin Anti-Xa Level ABG pH POC ABG pO2 ABG pO2 ABG HCO3 ABG O2 Saturation ABG Base Excess POC ABG pCO2 ABG Hemoglobin ABG Oxyhemoglobin ABG Chloride ABG Glucose Oxyhemoglobin Sodium 149 H Potassium Chloride 108.6 H Carbon Dioxide BUN 28 H Creatinine 0.7 L Glucose 108 H POC Glucose 113 H Lactic Acid Calcium Phosphorus Magnesium AST ALT Lactate Dehydrogenase Total Bilirubin Direct Bilirubin CK-MB (CK-2) C-Reactive Protein NT-Pro-B Natriuret Pep Total Protein Albumin Arterial Blood Glucose Urine WBC (Auto) Urine Creatinine 02/13/20 02/13/20 02/13/20 00:39 05:36 12:25 WBC RBC Hgb Hct MCHC RDW MCV MCH Lymph % (Auto) [place] % (Auto) [place] # Eos # Lymph # (Auto) [place] # (Auto) Eos # (Auto) Seg Neutrophils % Seg Neuts % (Manual) Baso # (Auto) Lymphocytes % (Manual) Monocytes % (Manual) Eosinophils % (Manual) Basophils % (Manual) Seg Neutrophils # Seg Neutrophils # Man Lymphocytes # (Manual) Monocytes # (Manual) Eosinophils # (Manual) Nucleated RBC % Basophils # (Manual) PT INR APTT Heparin Anti-Xa Level ABG pH POC ABG pO2 ABG pO2 ABG HCO3 ABG O2 Saturation ABG Base Excess POC ABG pCO2 ABG Hemoglobin ABG Oxyhemoglobin ABG Chloride ABG Glucose Oxyhemoglobin Sodium Potassium Chloride Carbon Dioxide BUN Creatinine Glucose POC Glucose 129 H 126 H 129 H Lactic Acid Calcium Phosphorus Magnesium AST ALT Lactate Dehydrogenase Total Bilirubin Direct Bilirubin CK-MB (CK-2) C-Reactive Protein NT-Pro-B Natriuret Pep Total Protein Albumin Arterial Blood Glucose Urine WBC (Auto) Urine Creatinine 02/13/20 02/14/20 02/14/20 17:59 00:15 05:41 WBC RBC Hgb Hct MCHC RDW MCV MCH Lymph % (Auto) [place] % (Auto) [place] # Eos # Lymph # (Auto) [place] # (Auto) Eos # (Auto) Seg Neutrophils % Seg Neuts % (Manual) Baso # (Auto) Lymphocytes % (Manual) Monocytes % (Manual) Eosinophils % (Manual) Basophils % (Manual) Seg Neutrophils # Seg Neutrophils # Man Lymphocytes # (Manual) Monocytes # (Manual) Eosinophils # (Manual) Nucleated RBC % Basophils # (Manual) PT INR APTT Heparin Anti-Xa Level ABG pH POC ABG pO2 ABG pO2 ABG HCO3 ABG O2 Saturation ABG Base Excess POC ABG pCO2 ABG Hemoglobin ABG Oxyhemoglobin ABG Chloride ABG Glucose Oxyhemoglobin Sodium Potassium Chloride Carbon Dioxide BUN Creatinine Glucose POC Glucose 153 H 130 H 130 H Lactic Acid Calcium Phosphorus Magnesium AST ALT Lactate Dehydrogenase Total Bilirubin Direct Bilirubin CK-MB (CK-2) C-Reactive Protein NT-Pro-B Natriuret Pep Total Protein Albumin Arterial Blood Glucose Urine WBC (Auto) Urine Creatinine 02/14/20 02/15/20 02/15/20 11:32 00:12 05:27 WBC RBC Hgb Hct MCHC RDW MCV MCH Lymph % (Auto) [place] % (Auto) [place] # Eos # Lymph # (Auto) [place] # (Auto) Eos # (Auto) Seg Neutrophils % Seg Neuts % (Manual) Baso # (Auto) Lymphocytes % (Manual) Monocytes % (Manual) Eosinophils % (Manual) Basophils % (Manual) Seg Neutrophils # Seg Neutrophils # Man Lymphocytes # (Manual) Monocytes # (Manual) Eosinophils # (Manual) Nucleated RBC % Basophils # (Manual) PT INR APTT Heparin Anti-Xa Level ABG pH POC ABG pO2 ABG pO2 ABG HCO3 ABG O2 Saturation ABG Base Excess POC ABG pCO2 ABG Hemoglobin ABG Oxyhemoglobin ABG Chloride ABG Glucose Oxyhemoglobin Sodium Potassium Chloride Carbon Dioxide BUN Creatinine Glucose POC Glucose 157 H 124 H 111 H Lactic Acid Calcium Phosphorus Magnesium AST ALT Lactate Dehydrogenase Total Bilirubin Direct Bilirubin CK-MB (CK-2) C-Reactive Protein NT-Pro-B Natriuret Pep Total Protein Albumin Arterial Blood Glucose Urine WBC (Auto) Urine Creatinine 02/15/20 02/15/20 02/15/20 06:59 06:59 11:14 WBC RBC Hgb 10.4 L Hct 33.7 L MCHC 31 L RDW 19.4 H MCV 80 L MCH 24 L Lymph % (Auto) [place] % (Auto) [place] # Eos # Lymph # (Auto) [place] # (Auto) Eos # (Auto) Seg Neutrophils % Seg Neuts % (Manual) Baso # (Auto) Lymphocytes % (Manual) Monocytes % (Manual) Eosinophils % (Manual) Basophils % (Manual) 2.0 H Seg Neutrophils # Seg Neutrophils # Man Lymphocytes # (Manual) Monocytes # (Manual) Eosinophils # (Manual) Nucleated RBC % 1.0 H Basophils # (Manual) 0.2 H PT INR APTT Heparin Anti-Xa Level ABG pH POC ABG pO2 ABG pO2 ABG HCO3 ABG O2 Saturation ABG Base Excess POC ABG pCO2 ABG Hemoglobin ABG Oxyhemoglobin ABG Chloride ABG Glucose Oxyhemoglobin Sodium 149 H Potassium Chloride 108.4 H Carbon Dioxide 31 H BUN 40 H Creatinine 0.7 L Glucose 150 H POC Glucose 128 H Lactic Acid Calcium Phosphorus Magnesium AST ALT Lactate Dehydrogenase Total Bilirubin Direct Bilirubin CK-MB (CK-2) C-Reactive Protein NT-Pro-B Natriuret Pep Total Protein Albumin Arterial Blood Glucose Urine WBC (Auto) Urine Creatinine 02/15/20 02/15/20 02/16/20 17:46 23:50 05:03 WBC RBC Hgb Hct MCHC RDW MCV MCH Lymph % (Auto) [place] % (Auto) [place] # Eos # Lymph # (Auto) [place] # (Auto) Eos # (Auto) Seg Neutrophils % Seg Neuts % (Manual) Baso # (Auto) Lymphocytes % (Manual) Monocytes % (Manual) Eosinophils % (Manual) Basophils % (Manual) Seg Neutrophils # Seg Neutrophils # Man Lymphocytes # (Manual) Monocytes # (Manual) Eosinophils # (Manual) Nucleated RBC % Basophils # (Manual) PT INR APTT Heparin Anti-Xa Level ABG pH POC ABG pO2 ABG pO2 ABG HCO3 ABG O2 Saturation ABG Base Excess POC ABG pCO2 ABG Hemoglobin ABG Oxyhemoglobin ABG Chloride ABG Glucose Oxyhemoglobin Sodium Potassium Chloride Carbon Dioxide BUN Creatinine Glucose POC Glucose 154 H 135 H 148 H Lactic Acid Calcium Phosphorus Magnesium AST ALT Lactate Dehydrogenase Total Bilirubin Direct Bilirubin CK-MB (CK-2) C-Reactive Protein NT-Pro-B Natriuret Pep Total Protein Albumin Arterial Blood Glucose Urine WBC (Auto) Urine Creatinine 02/16/20 02/16/20 02/16/20 07:53 11:28 17:52 WBC RBC Hgb Hct MCHC RDW MCV MCH Lymph % (Auto) [place] % (Auto) [place] # Eos # Lymph # (Auto) [place] # (Auto) Eos # (Auto) Seg Neutrophils % Seg Neuts % (Manual) Baso # (Auto) Lymphocytes % (Manual) Monocytes % (Manual) Eosinophils % (Manual) Basophils % (Manual) Seg Neutrophils # Seg Neutrophils # Man Lymphocytes # (Manual) Monocytes # (Manual) Eosinophils # (Manual) Nucleated RBC % Basophils # (Manual) PT INR APTT Heparin Anti-Xa Level ABG pH POC ABG pO2 ABG pO2 ABG HCO3 ABG O2 Saturation ABG Base Excess POC ABG pCO2 ABG Hemoglobin ABG Oxyhemoglobin ABG Chloride ABG Glucose Oxyhemoglobin Sodium Potassium Chloride 107.9 H Carbon Dioxide BUN 38 H Creatinine 0.6 L Glucose 151 H POC Glucose 123 H 152 H Lactic Acid Calcium Phosphorus Magnesium AST ALT Lactate Dehydrogenase Total Bilirubin Direct Bilirubin CK-MB (CK-2) C-Reactive Protein NT-Pro-B Natriuret Pep Total Protein Albumin Arterial Blood Glucose Urine WBC (Auto) Urine Creatinine 02/16/20 02/17/20 02/17/20 23:49 06:24 11:36 WBC RBC Hgb Hct MCHC RDW MCV MCH Lymph % (Auto) [place] % (Auto) [place] # Eos # Lymph # (Auto) [place] # (Auto) Eos # (Auto) Seg Neutrophils % Seg Neuts % (Manual) Baso # (Auto) Lymphocytes % (Manual) Monocytes % (Manual) Eosinophils % (Manual) Basophils % (Manual) Seg Neutrophils # Seg Neutrophils # Man Lymphocytes # (Manual) Monocytes # (Manual) Eosinophils # (Manual) Nucleated RBC % Basophils # (Manual) PT INR APTT Heparin Anti-Xa Level ABG pH POC ABG pO2 ABG pO2 ABG HCO3 ABG O2 Saturation ABG Base Excess POC ABG pCO2 ABG Hemoglobin ABG Oxyhemoglobin ABG Chloride ABG Glucose Oxyhemoglobin Sodium Potassium Chloride Carbon Dioxide BUN Creatinine Glucose POC Glucose 156 H 193 H 162 H Lactic Acid Calcium Phosphorus Magnesium AST ALT Lactate Dehydrogenase Total Bilirubin Direct Bilirubin CK-MB (CK-2) C-Reactive Protein NT-Pro-B Natriuret Pep Total Protein Albumin Arterial Blood Glucose Urine WBC (Auto) Urine Creatinine 02/17/20 02/17/20 02/18/20 17:55 23:28 05:11 WBC RBC Hgb Hct MCHC RDW MCV MCH Lymph % (Auto) [place] % (Auto) [place] # Eos # Lymph # (Auto) [place] # (Auto) Eos # (Auto) Seg Neutrophils % Seg Neuts % (Manual) Baso # (Auto) Lymphocytes % (Manual) Monocytes % (Manual) Eosinophils % (Manual) Basophils % (Manual) Seg Neutrophils # Seg Neutrophils # Man Lymphocytes # (Manual) Monocytes # (Manual) Eosinophils # (Manual) Nucleated RBC % Basophils # (Manual) PT INR APTT Heparin Anti-Xa Level ABG pH POC ABG pO2 ABG pO2 ABG HCO3 ABG O2 Saturation ABG Base Excess POC ABG pCO2 ABG Hemoglobin ABG Oxyhemoglobin ABG Chloride ABG Glucose Oxyhemoglobin Sodium Potassium Chloride Carbon Dioxide BUN Creatinine Glucose POC Glucose 165 H 146 H 122 H Lactic Acid Calcium Phosphorus Magnesium AST ALT Lactate Dehydrogenase Total Bilirubin Direct Bilirubin CK-MB (CK-2) C-Reactive Protein NT-Pro-B Natriuret Pep Total Protein Albumin Arterial Blood Glucose Urine WBC (Auto) Urine Creatinine 02/18/20 02/18/20 02/19/20 12:24 17:29 00:01 WBC RBC Hgb Hct MCHC RDW MCV MCH Lymph % (Auto) [place] % (Auto) [place] # Eos # Lymph # (Auto) [place] # (Auto) Eos # (Auto) Seg Neutrophils % Seg Neuts % (Manual) Baso # (Auto) Lymphocytes % (Manual) Monocytes % (Manual) Eosinophils % (Manual) Basophils % (Manual) Seg Neutrophils # Seg Neutrophils # Man Lymphocytes # (Manual) Monocytes # (Manual) Eosinophils # (Manual) Nucleated RBC % Basophils # (Manual) PT INR APTT Heparin Anti-Xa Level ABG pH POC ABG pO2 ABG pO2 ABG HCO3 ABG O2 Saturation ABG Base Excess POC ABG pCO2 ABG Hemoglobin ABG Oxyhemoglobin ABG Chloride ABG Glucose Oxyhemoglobin Sodium Potassium Chloride Carbon Dioxide BUN Creatinine Glucose POC Glucose 162 H 136 H 145 H Lactic Acid Calcium Phosphorus Magnesium AST ALT Lactate Dehydrogenase Total Bilirubin Direct Bilirubin CK-MB (CK-2) C-Reactive Protein NT-Pro-B Natriuret Pep Total Protein Albumin Arterial Blood Glucose Urine WBC (Auto) Urine Creatinine 02/19/20 02/19/20 02/19/20 05:53 11:44 17:32 WBC RBC Hgb Hct MCHC RDW MCV MCH Lymph % (Auto) [place] % (Auto) [place] # Eos # Lymph # (Auto) [place] # (Auto) Eos # (Auto) Seg Neutrophils % Seg Neuts % (Manual) Baso # (Auto) Lymphocytes % (Manual) Monocytes % (Manual) Eosinophils % (Manual) Basophils % (Manual) Seg Neutrophils # Seg Neutrophils # Man Lymphocytes # (Manual) Monocytes # (Manual) Eosinophils # (Manual) Nucleated RBC % Basophils # (Manual) PT INR APTT Heparin Anti-Xa Level ABG pH POC ABG pO2 ABG pO2 ABG HCO3 ABG O2 Saturation ABG Base Excess POC ABG pCO2 ABG Hemoglobin ABG Oxyhemoglobin ABG Chloride ABG Glucose Oxyhemoglobin Sodium Potassium Chloride Carbon Dioxide BUN Creatinine Glucose POC Glucose 116 H 120 H 154 H Lactic Acid Calcium Phosphorus Magnesium AST ALT Lactate Dehydrogenase Total Bilirubin Direct Bilirubin CK-MB (CK-2) C-Reactive Protein NT-Pro-B Natriuret Pep Total Protein Albumin Arterial Blood Glucose Urine WBC (Auto) Urine Creatinine 02/19/20 02/20/20 02/20/20 23:43 00:24 00:24 WBC RBC Hgb 9.4 L Hct 30.0 L MCHC 31 L RDW 20.4 H MCV 79 L MCH 25 L Lymph % (Auto) [place] % (Auto) 8.5 H [place] # Eos # Lymph # (Auto) [place] # (Auto) Eos # (Auto) Seg Neutrophils % Seg Neuts % (Manual) Baso # (Auto) Lymphocytes % (Manual) Monocytes % (Manual) Eosinophils % (Manual) Basophils % (Manual) Seg Neutrophils # Seg Neutrophils # Man Lymphocytes # (Manual) Monocytes # (Manual) Eosinophils # (Manual) Nucleated RBC % Basophils # (Manual) PT INR APTT Heparin Anti-Xa Level ABG pH POC ABG pO2 ABG pO2 ABG HCO3 ABG O2 Saturation ABG Base Excess POC ABG pCO2 ABG Hemoglobin ABG Oxyhemoglobin ABG Chloride ABG Glucose Oxyhemoglobin Sodium 147 H Potassium 3.4 L Chloride Carbon Dioxide 31 H BUN 34 H Creatinine 0.5 L Glucose 135 H POC Glucose 122 H Lactic Acid Calcium Phosphorus Magnesium AST ALT Lactate Dehydrogenase Total Bilirubin Direct Bilirubin CK-MB (CK-2) C-Reactive Protein NT-Pro-B Natriuret Pep Total Protein Albumin Arterial Blood Glucose Urine WBC (Auto) Urine Creatinine 02/20/20 02/20/20 06:07 12:03 WBC RBC Hgb Hct MCHC RDW MCV MCH Lymph % (Auto) [place] % (Auto) [place] # Eos # Lymph # (Auto) [place] # (Auto) Eos # (Auto) Seg Neutrophils % Seg Neuts % (Manual) Baso # (Auto) Lymphocytes % (Manual) Monocytes % (Manual) Eosinophils % (Manual) Basophils % (Manual) Seg Neutrophils # Seg Neutrophils # Man Lymphocytes # (Manual) Monocytes # (Manual) Eosinophils # (Manual) Nucleated RBC % Basophils # (Manual) PT INR APTT Heparin Anti-Xa Level ABG pH POC ABG pO2 ABG pO2 ABG HCO3 ABG O2 Saturation ABG Base Excess POC ABG pCO2 ABG Hemoglobin ABG Oxyhemoglobin ABG Chloride ABG Glucose Oxyhemoglobin Sodium Potassium Chloride Carbon Dioxide BUN Creatinine Glucose POC Glucose 109 H 128 H Lactic Acid Calcium Phosphorus Magnesium AST ALT Lactate Dehydrogenase Total Bilirubin Direct Bilirubin CK-MB (CK-2) C-Reactive Protein NT-Pro-B Natriuret Pep Total Protein Albumin Arterial Blood Glucose Urine WBC (Auto) Urine Creatinine Allied health notes reviewed: RT
[2020-02-20] MEDS: DIGOXIN 0.5 MG/2 ML INJ IV SCH (16:40)
--- NOTE | 2020-02-20 17:17 | XRay Report ---
ABDOMEN 1 VIEW INDICATION / CLINICAL INFORMATION: Vomiting. COMPARISON: 02/02/2020 FINDINGS: TUBES / LINES: Gastrostomy tube in appropriate position. BOWEL GAS PATTERN: Nonobstructive bowel gas pattern. Abundant fecal material noted throughout the col on and rectal vault. FREE AIR / EXTRALUMINAL GAS: None seen. ADDITIONAL FINDINGS: No significant additional findings. IMPRESSION: 1. Nonobstructive bowel gas pattern. 2. Abundant fecal material noted throughout the colon and rectal vault. Clinical correlation for cons tipation is recommended. 3. Gastrostomy tube in stable position. Signer Name: Jairon Sorto MD Signed: 02/20/2020 5:12 PM Workstation Name: [id number]
[2020-02-20] MEDS: TAMSULOSIN 0.4 MG CAP PO SCH (23:36)
[2020-02-20] MEDS: POLYETHYLENE GLYCOL 3350 17 GM POWDER PO SCH (23:36)
[2020-02-20] MEDS: GLYCOPYRROLATE 1 MG TAB PO SCH (23:38)
[2020-02-21] MEDS: INSULIN REGULAR, HUMAN 100 UNIT/ML 3ML VIAL SUB-Q SCH ×3 (06:27→18:12)
[2020-02-21] MEDS: MORPHINE 2 MG/1 ML INJ IV PRN ×3 (08:30→16:51)
[2020-02-21 10:00] LABS: ABG Base Excess 8.4 mmol/L (-2.0-3.0); ABG HCO3 33.3 mmol/L (20.0-26.0); ABG Methemoglobin 0.4 % (0.0-1.5); ABG Oxygen Saturation 97.2 % (95.0-99.0); ABG PCO2 47.8 mm Hg; ABG PH 7.461 pH Units (7.350-7.450); ABG PO2 88.7 mm Hg (80.0-90.0)
--- NOTE | 2020-02-21 10:36 | Progress Note ---
Assessment and Plan Assessment and plan: --Ischemic cardiomyopathy Cardiology is following, status post cardiac catheterization on 01/22/2020; Co ronary artery disease status post PCI and stent to the LAD Continue current cardiac medications --Acute on chronic hypoxemic respiratory failure; Patient has tracheostomy on vent Continue nebulizers, , trach care Wean off ventilator as tolerated Pulmonary critical following --Acute exacerbation of COPD; Patient is currently on ventilatory support Continue nebulizers --Left lower lobe PE; Continue Eliquis, ventilatory support --Acute right lower extremity DVT; Patient is on Eliquis --Bilateral multifocal pneumonia/community-acquired Completed antibiotics, improved --Severe sepsis/bilateral pneumonia: Completed antibiotics COVID-19 test; 11/24/2019; negative 11/26/2019; negative 12/29/2019: Negative --Paroxysmal atrial fibrillation; Now rate controlled, Stable on amiodarone and Eliquis --Acute on chronic combined systolic and diastolic congestive heart failure Ischemic cardiomyopathy left ventricular ejection fraction 40 to 45% --H/o CAD [[facility] 12/2018 in-stent restenosis] Patient is stable on current cardiac medications --Hypertensive emergency; present on admission Reasonable blood pressures, continue current antihypertensives As needed medications --History of alcohol abuse/alcohol withdrawal; Was on CIWA protocol, now stable --Oropharyngeal dysphagia; status post PEG placement Continue PEG feeds per protocol --History of partial small bowel obstruction; resolved Surgery evaluated. --Obesity; BMI 34.7 Patient needs weight reduction when medically stable --Severe protein calorie malnutrition/hypoalbuminemia Nutrition supplements, dietitian following, PEG feeds --DVT prophylaxis;Eliquis --Full CODE STATUS 01/05; Pt stable. NGT output 650cc over 24 hours, bilious. No f/c, WBC within normal limits. cont NG suction and cont to hold TF 01/06: Abs series - mild improvement in small bowel distension in mid abdomen, normal gas/stool pattern in colon. NGT in duodenum. Continue to hold tube feeding, maintain NG tube with low intermittent suction. Patient's was updated by phone. Continue to provide supportive care and monitor clinically. 01/07: +BMs today and NGT/PEG output appears more gastric today. Plan to clamp NGT, if tolerates start TF from tomorrow. cont supportive care. 01/08; Gastric output decreased over last 24 hours. NGT has been clamped x 24 hours. plan to dc NGT and to start TTF via PEG - vital HF @10cc/hr 01/09: clinically stable, tolerating TF. monitor BMP, wean off from vent as tolerated clinically stable, on TF. wean off vent as tolerated 01/11: wean off from vent, cont to monitor, on TF 01/12: wean off from vent, cont to monitor, on TF. need placement - unfunded 01/13; remains on ventilatory support, unable to wean, DC planning possible LTAC, unfunded 01/14; patient of ventilatory support, T-piece tracheostomy on oxygen, LTAC placement per case management 01/16; tracheostomy, patient on full ventilatory support, wean off vent support as tolerated, pending LTAC placement, social financial issues 01/17; awaiting LTAC placement, insurance and financial issues 01/18; patient tracheostomy remains on ventilatory support 01/19; wean off ventilator as tolerated 01/20; remains on ventilatory support, patient complains of intermittent chest pain, cardiology recommend left heart catheterization tomorrow 01/22/2020. Patient for left heart catheterization per cardiology. Patient remains on AC mode ventilation rate 12, tidal volume 450, FiO2 30% and PEEP of 6. Continue tracheostomy care, airway management and secretion control. 01/23/2020. Cardiac catheterization completed yesterday revealed widely patent previous LAD stent with mild nonobstructive atherosclerosis of the right mid coronary artery and rest of the coronary system was without significant atherosclerosis. The left ventricle ejection fraction was mildly impaired at 40 to 45%. There was some hypokinesis of the basal inferior wall suggestive of previous or recent infarct. Continue GDMT for coronary artery disease including beta blockers, topical nitrates, statin and Plavix. Continue Eliquis for paroxysmal atrial fibrillation and PE. Continue diuresis with Lasix and follow electrolytes closely. Continue Robinul and scopolamine for secretion control and daily SBT per pulmonary. Also, continue bronchodilators and routine trach care/airway management. T-piece trials per pulmonary as tolerated. 01/24/2020. Recent cardiac catheterization has documented widely patent left anterior descending artery stent with minimal nonobstructive diffuse coronary artery disease in the rest of the coronary arteries. Evidence of ischemic cardiomyopathy with inferior wall hypokinesis. Continue with guideline directed medical therapy. Continue Robinul and scopolamine for secretion control and daily SBT per pulmonary. Continue bronchodilators and routine trach care/airway management. T-piece trials per pulmonary as tolerated. 01/25/2020. Continue with guideline directed medical therapy for systolic heart failure. Cardiac catheterization revealed evidence of ischemic cardiomyopathy with inferior wall hypokinesis (EF 40-45%). Patient currently on T-piece with oxygen 10 L/min FiO2 40%. Continue Robinul and scopolamine for secretion control. Continue bronchodilators and routine trach care/airway management. 02/03: Mental status more improved, agree with Reglan will change to IV scheduled for two days, no new vomiting. Pseudomonas A in Sputum. 02/04: Clinical improving, amiodarone discontinued due to LFTs, continue Metoprolol.d/w GI, started on Golytely to clear impaction. Started on dialy Miralax. 02/05: Continue supportive care. Noted bowel movement, continue bowel regimen 02/06: Cardiology input noted beta-hebert increased for better suppression of atrial fibrillation. Continue to monitor, no other evidence of nausea vomiting noted. Discussed with respiratory therapist will be continued on weaning protocol with pressure support today. 02/07: Patient successfully weaned off the ventilator, No new complaints, c ontinue monitoring, BM noted, Discussed with pulmonary, 02/08; tracheostomy on T-piece, patient is more alert and awake today 02/09; clinically no change, tracheostomy on vent 02/10; tracheostomy on vent, full CODE STATUS, poor prognosis, 02/11; clinically no change, remains on ventilatory support, full CODE STATUS, discussed with spouse Ms. Paulette Araiza extensively today 02/12. Patient resting comfortably no change on vent with tracheostomy. Still unable to wean. Some increased crackles today. 02/13: Still unable to wean from the vent. Overall prognosis remains extremely poor. 02/14; remains critically ill, tracheostomy on vent, unable to wean, poor prognosis, full CODE STATUS 02/15; patient is more alert and awake today, chronic tracheostomy on T-piece, continue current management DC planning per case management. Disposition very difficult due to lack of resources and insurance 02/17/2020. Patient remains on mechanical ventilation and tolerating PSV trials. Patient currently with PSV 10/6 at FiO2 of 30%. 02/18/2020. Patient currently on PSV 10/6 with FiO2 of 40%. 40% T-piece trial was attempted but patient unable to tolerate due to saturations dropping into the 80s and heart rate in the 140s. Therefore, patient placed back on PSV. Continue anticoagulation with Eliquis. Continue secretion control with Robinul and scopolamine. Continue rate control with metoprolol and digoxin. 02/19/2020. Patient currently on PSV 10/6 with FiO2 of 30%. T-piece trial attempted yesterday but patient did not tolerate. Continue T-piece trials as tolerated. Continue anticoagulation with Eliquis. Continue secretion control with Robinul and scopolamine. Continue rate control with metoprolol and digoxin. Continue to follow with case management with regards to discharge pl anning. 02/20/2020. Patient continues to tolerate PSV 10/6. Continue rate control with metoprolol and digoxin. Amiodarone discontinued due to elevated liver transaminases. Eliquis for anticoagulation acute PE/DVT. 02/21/2020. Patient continues to tolerate PSV 10/6 at FiO2 of 30%. Continue ra te control with metoprolol and digoxin. Amiodarone discontinued due to elevated liver transaminases. Eliquis for anticoagulation acute PE/DVT. The high probability of a clinically significant, sudden or life threatening deterioration of the [Respiratory, cardiovascular & neurological] system(s) required my full and direct attention, intervention and personal management. The aggregate critical care time was [32] minutes without overlap. Time includes spent on [x] Data Review and interpretation [x] Patient assessment and monitoring of vital signs [x] Documentation [x] Medication orders and management History Interval history: Patient is a 64-year-old male with known history of hypertension, COPD, history of coronary artery disease, CHF with ejection fraction of 20 to 25% 2019 was admitted through emergency room with worsening shortness of breath Patient was found to be hypoxic and in respiratory distress. Patient was placed on CPAP in route to the hospital. Patient remained hypoxic on CPAP BiPAP ,subsequently was intubated. Patient also had bilateral multifocal pneumonia managed appropriately with antibiotics sputum cultures positive for Pseudomonas, ID treated with cefepime and Vanco. His hospital course became complicated with acute PE, DVT, paroxysmal atrial fib - placed on chronic anticoagulation. Patient was difficult to wean off, status post trach and PEG, remains on mechanical ventilation with trach tube. He then developed partial small bowel obstruction evaluated by general surgeon symptom improved with medical Mx, patient was briefly weaned off ventilatory support however, was in respiratory failure requiring full ventilatory support. Cardiac catheterization on 01/22/2020. Patient remains on mechanical ventilatory support. Patients still with elevated heart rate of Afib with RVR continue amiodarone and metoprolol. LVEF 40 to 45% on Eliquis FOR THE Acute PE/DVT. Partial SBO vs ileus- KUB is negative. Will monitor, No further vomiting noted. If no improvement will repeat a chest xray to ensure no aspiration in the last 24 hrs. Hospitalist Physical - Constitutional Vitals: Temp Pulse Resp BP Pulse Ox 97.9 F 91 H 21 99/84 95 02/21/20 08:00 02/21/20 10:00 02/21/20 10:00 02/21/20 10:00 02/21/20 10:00 General appearance: Present: no acute distress, well-nourished, obese, other (Tracheostomy responds to simple questions appropriately) - EENT Eyes: Present: PERRL, EOM intact ENT: hearing intact, clear oral mucosa, dentition normal - Neck Neck: Present: supple, normal ROM - Respiratory Respiratory effort: normal Respiratory: bilateral: CTA - Cardiovascular Rhythm: regular Heart Sounds: Present: S1 & S2. Absent: gallop, rub - Extremities Extremities: no ischemia, No edema, Full ROM - Abdominal General gastrointestinal: soft, non-tender, non-distended, normal bowel sounds - Integumentary Integumentary: Present: clear, warm, dry - Neurologic Neurologic: CNII-XII intact, moves all extremities HEART Score - HEART Score Troponin: Troponin T < 0.010 ng/mL (0.00-0.029) 01/19/20 01:35 Results - Labs CBC & Chem 7: 02/20/20 00:24 02/20/20 00:24 Labs: Laboratory Last Values WBC 9.0 K/mm3 (4.5-11.0) 02/20/20 00:24 RBC 3.82 M/mm3 (3.65-5.03) 02/20/20 00:24 Hgb 9.4 gm/dl (11.8-15.2) L 02/20/20 00:24 Hct 30.0 % (35.5-45.6) L 02/20/20 00:24 MCV 79 fl (84-94) L 02/20/20 00:24 MCH 25 pg (28-32) L 02/20/20 00:24 MCHC 31 % (32-34) L 02/20/20 00:24 RDW 20.4 % (13.2-15.2) H 02/20/20 00:24 Plt Count 219 K/mm3 (140-440) 02/20/20 00:24 Lymph % (Auto) 23.5 % (13.4-35.0) 02/20/20 00:24 [place] % (Auto) 8.5 % (0.0-7.3) H 02/20/20 00:24 Eos % (Auto) 2.7 % (0.0-4.3) 02/20/20 00:24 Baso % (Auto) 0.7 % (0.0-1.8) 02/20/20 00:24 Lymph # (Auto) 2.1 K/mm3 (1.2-5.4) 02/20/20 00:24 [place] # (Auto) 0.8 K/mm3 (0.0-0.8) 02/20/20 00:24 Eos # (Auto) 0.2 K/mm3 (0.0-0.4) 02/20/20 00:24 Baso # (Auto) 0.1 K/mm3 (0.0-0.1) 02/20/20 00:24 Add Manual Diff Complete 02/15/20 06:59 Total Counted 100 02/15/20 06:59 Seg Neutrophils % 64.6 % (40.0-70.0) 02/20/20 00:24 Seg Neuts % (Manual) 58.0 % (40.0-70.0) 02/15/20 06:59 Band Neutrophils % 0 % 02/15/20 06:59 Lymphocytes % (Manual) 34.0 % (13.4-35.0) 02/15/20 06:59 Reactive Lymphs % (Man) 1.0 % 02/15/20 06:59 Monocytes % (Manual) 4.0 % (0.0-7.3) 02/15/20 06:59 Eosinophils % (Manual) 0 % (0.0-4.3) 02/15/20 06:59 Basophils % (Manual) 2.0 % (0.0-1.8) H 02/15/20 06:59 Metamyelocytes % 1.0 % 02/15/20 06:59 Myelocytes % 0 % 02/15/20 06:59 Promyelocytes % 0 % 02/15/20 06:59 Blast Cells % 0 % 02/15/20 06:59 Nucleated RBC % 1.0 % (0.0-0.9) H 02/15/20 06:59 Seg Neutrophils # 5.8 K/mm3 (1.8-7.7) 02/20/20 00:24 Seg Neutrophils # Man 5.9 K/mm3 (1.8-7.7) 02/15/20 06:59 Band Neutrophils # 0.0 K/mm3 02/15/20 06:59 Lymphocytes # (Manual) 3.5 K/mm3 (1.2-5.4) 02/15/20 06:59 Abs React Lymphs (Man) 0.1 K/mm3 02/15/20 06:59 Monocytes # (Manual) 0.4 K/mm3 (0.0-0.8) 02/15/20 06:59 Eosinophils # (Manual) 0.0 K/mm3 (0.0-0.4) 02/15/20 06:59 Basophils # (Manual) 0.2 K/mm3 (0.0-0.1) H 02/15/20 06:59 Metamyelocytes # 0.1 K/mm3 02/15/20 06:59 Myelocytes # 0.0 K/mm3 02/15/20 06:59 Promyelocytes # 0.0 K/mm3 02/15/20 06:59 Blast Cells # 0.0 K/mm3 02/15/20 06:59 WBC Morphology Not Reportable 02/15/20 06:59 Hypersegmented Neuts Not Reportable 02/15/20 06:59 Hyposegmented Neuts Not Reportable 02/15/20 06:59 Hypogranular Neuts Not Reportable 02/15/20 06:59 Smudge Cells Not Reportable 02/15/20 06:59 Toxic Granulation Not Reportable 02/15/20 06:59 Toxic Vacuolation Not Reportable 02/15/20 06:59 Dohle Bodies Not Reportable 02/15/20 06:59 Pelger-Huet Anomaly Not Reportable 02/15/20 06:59 Hector Rods Not Reportable 02/15/20 06:59 Platelet Estimate Consistent w auto 02/15/20 06:59 Clumped Platelets Not Reportable 02/15/20 06:59 Plt Clumps, EDTA Not Reportable 02/15/20 06:59 Large Platelets Not Reportable 02/15/20 06:59 Giant Platelets Not Reportable 02/15/20 06:59 Platelet Satelliting Not Reportable 02/15/20 06:59 Plt Morphology Comment Giant platelets 02/15/20 06:59 RBC Morphology Not Reportable 02/15/20 06:59 Dimorphic RBCs Not Reportable 02/15/20 06:59 Polychromasia Not Reportable 02/15/20 06:59 Hypochromasia 1+ 02/15/20 06:59 Poikilocytosis Few 02/15/20 06:59 Anisocytosis 1+ 02/15/20 06:59 Microcytosis Not Reportable 02/15/20 06:59 Macrocytosis Not Reportable 02/15/20 06:59 Spherocytes Not Reportable 02/15/20 06:59 Pappenheimer Bodies Not Reportable 02/15/20 06:59 Sickle Cells Not Reportable 02/15/20 06:59 Target Cells 1+ 02/15/20 06:59 Tear Drop Cells Few 02/15/20 06:59 Ovalocytes Not Reportable 02/15/20 06:59 Helmet Cells Not Reportable 02/15/20 06:59 [place] Bodies Not Reportable 02/15/20 06:59 [place] Rings Not Reportable 02/15/20 06:59 [place] Cells Not Reportable 02/15/20 06:59 Bite Cells Not Reportable 02/15/20 06:59 Crenated Cell Not Reportable 02/15/20 06:59 Elliptocytes Few 02/15/20 06:59 Acanthocytes (Spur) Not Reportable 02/15/20 06:59 Rouleaux Not Reportable 02/15/20 06:59 Hemoglobin C Crystals Not Reportable 02/15/20 06:59 Schistocytes Not Reportable 02/15/20 06:59 Malaria parasites Not Reportable 02/15/20 06:59 Clifford Bodies Not Reportable 02/15/20 06:59 Hem Pathologist Commnt No 02/15/20 06:59 PT 27.0 Sec. (12.2-14.9) H 02/07/20 15:03 INR 2.46 (0.87-1.13) H 02/07/20 15:03 APTT 31.5 Sec. (24.2-36.6) 01/22/20 09:58 Heparin Anti-Xa Level 1.34 U.I./ml (0.3-0.7) H 01/22/20 04:45 ABG pH 7.461 pH Units (7.350-7.450) H 02/20/20 06:45 POC ABG pCO2 34.8 mmHg (32.0-48.0) 02/11/20 14:11 ABG pCO2 47.8 mm Hg 02/20/20 06:45 POC ABG pO2 77.7 mmHg (83-108) L 02/11/20 14:11 ABG pO2 88.7 mm Hg (80.0-90.0) 02/20/20 06:45 POC ABG HCO3 26.7 02/11/20 14:11 ABG HCO3 33.3 mmol/L (20.0-26.0) H 02/20/20 06:45 ABG O2 Saturation 97.2 % (95.0-99.0) 02/20/20 06:45 ABG O2 Content 13.3 (0.0-44) 02/20/20 06:45 POC ABG Base Excess 3.6 02/11/20 14:11 ABG Base Excess 8.4 mmol/L (-2.0-3.0) H 02/20/20 06:45 ABG Hemoglobin 10.0 gm/dl (14.0-18.0) L 02/20/20 06:45 ABG Oxyhemoglobin 84 (94-98) L 12/22/19 03:22 ABG Carboxyhemoglobin 2.9 % (0.0-5.0) 02/20/20 06:45 ABG Methemoglobin 0.4 % (0.0-1.5) 02/20/20 06:45 ABG Sodium 144.7 mmol/L (136.0-145.0) 02/11/20 14:11 ABG Potassium 3.5 mmol/L (3.40-4.50) 02/11/20 14:11 ABG Chloride 108.0 mmol/L (98-107) H 02/11/20 14:11 ABG Glucose 151 mg/dL (65-95) H 02/11/20 14:11 Oxyhemoglobin 94.1 % (95.0-99.0) L 02/20/20 06:45 Carboxyhemoglobin 0.7 (0.5-1.5) 12/22/19 03:22 FiO2 30 % 02/20/20 06:45 Sodium 147 mmol/L (137-145) H 02/20/20 00:24 Potassium 3.4 mmol/L (3.6-5.0) L 02/20/20 00:24 Chloride 106.3 mmol/L (98-107) 02/20/20 00:24 Carbon Dioxide 31 mmol/L (22-30) H 02/20/20 00:24 Anion Gap 13 mmol/L 02/20/20 00:24 BUN 34 mg/dL (9-20) H 02/20/20 00:24 Creatinine 0.5 mg/dL (0.8-1.3) L 02/20/20 00:24 Estimated GFR > 60 ml/min 02/20/20 00:24 BUN/Creatinine Ratio 68 % 02/20/20 00:24 Glucose 135 mg/dL (75-100) H 02/20/20 00:24 POC Glucose 127 mg/dL (70-105) H 02/21/20 05:42 Lactic Acid 1.60 mmol/L (0.7-2.0) 02/03/20 12:49 Calcium 9.1 mg/dL (8.4-10.2) 02/20/20 00:24 Ferritin 84.4 ng/mL (30.0-300.0) 11/24/19 04:53 Phosphorus 4.10 mg/dL (2.5-4.5) 01/31/20 19:24 Magnesium 2.40 mg/dL (1.7-2.3) H 02/10/20 07:40 Total Bilirubin 1.30 mg/dL (0.1-1.2) H 02/08/20 19:00 Direct Bilirubin 0.9 mg/dL (0-0.2) H 02/08/20 19:00 Indirect Bilirubin 0.4 mg/dL 02/08/20 19:00 Total Creatine Kinase 141 units/L (55-170) 11/24/19 02:53 CK-MB (CK-2) 4.3 ng/mL (0.0-4.0) H 11/24/19 02:53 AST 309 units/L (5-40) H 02/08/20 19:00 ALT 650 units/L (7-56) H 02/08/20 19:00 CK-MB (CK-2) Rel Index 3.0 (0-4) 11/24/19 02:53 Alkaline Phosphatase 109 units/L (35-129) 02/08/20 19:00 C-Reactive Protein 8.50 mg/dL (0.00-1.30) H 12/01/19 12:16 Ammonia 35.0 umol/L (25-60) 02/03/20 12:49 Lactate Dehydrogenase 228 units/L (91-180) H 12/19/19 04:45 Troponin T < 0.010 ng/mL (0.00-0.029) 01/19/20 01:35 NT-Pro-B Natriuret Pep 3866 pg/mL (0-900) H 01/01/20 10:40 Total Protein 6.2 g/dL (6.3-8.2) L 02/08/20 19:00 Albumin 2.7 g/dL (3.9-5) L 02/08/20 19:00 Albumin/Globulin Ratio 0.8 % 02/08/20 19:00 Procalcitonin 0.44 ng/mL (<0.15) 02/03/20 12:49 Arterial Blood Glucose 151 mg/dL (65-95) H 02/11/20 14:11 Arterial Blood Ionized Calcium 4.7 mg/dL (4.6-5.3) 02/11/20 14:11 Urine Color Cecy (Yellow) 12/31/19 18:04 Urine Turbidity Clear (Clear) 12/31/19 18:04 Urine pH 5.0 (5.0-7.0) 12/31/19 18:04 Ur Specific [place] 1.023 (1.003-1.030) 12/31/19 18:04 Urine Protein <15 mg/dl mg/dL (Negative) 12/31/19 18:04 Urine Glucose (UA) Neg mg/dL (Negative) 12/31/19 18:04 Urine Ketones Neg mg/dL (Negative) 12/31/19 18:04 Urine Blood Neg (Negative) 12/31/19 18:04 Urine Bacteria (Auto) 1+ /HPF (Negative) 12/03/19 06:03 Urine Nitrite Neg (Negative) 12/31/19 18:04 Urine Bilirubin Neg (Negative) 12/31/19 18:04 Urine Urobilinogen 4.0 mg/dL (<2.0) 12/31/19 18:04 Ur Leukocyte Esterase Neg (Negative) 12/31/19 18:04 Urine WBC (Auto) 2.0 /HPF (0.0-6.0) 12/31/19 18:04 Urine RBC (Auto) 3.0 /HPF (0.0-6.0) 12/31/19 18:04 U Epithel Cells (Auto) 2.0 /HPF (0-13.0) 12/31/19 18:04 Urine Mucus 1+ /HPF 12/31/19 18:04 Urine Creatinine 57.4 mg/dL (0.1-20.0) H 01/31/20 Unknown Urine Sodium 59 mmol/L 01/31/20 Unknown Vancomycin Trough 14.2 ug/mL (5.0-20.0) 12/13/19 15:01 Coronavirus (PCR) Negative (Negative) 12/29/19 10:07 Hepatitis A IgM Ab Non-reactive (NonReactive) 02/05/20 06:37 Hep Bs Antigen Non-reactive (Negative) 02/05/20 06:37 Hep B Core IgM Ab Non-reactive (NonReactive) 02/05/20 06:37 Hepatitis C Antibody Non-reactive (NonReactive) 02/05/20 06:37 Blood Type O POSITIVE 01/21/20 13:00 Antibody Screen Negative 01/21/20 13:00 - Diagnostic Impressions Diagnostic Impressions: Echocardiogram 11/29/19 07:37 Transthoracic Echocardiogram Indication: CHF BP: 116/72 HR: 33 Conclusions *The study is technically limited due to poor acoustic windows. *Global left ventricular systolic function is normal. *The estimated ejection fraction is 50-55%. *Mild concentric left ventricular hypertrophy is observed. *There is trace of mitral regurgitation. *There is mild tricuspid regurgitation. Findings Procedure Info: The study quality is poor. The study is technically limited due to poor acoustic windows. The study is technically limited due to patient body habitus. Left Ventricle: The left ventricular chamber size is normal. Mild concentric left ventricular hypertrophy is observed. Global left ventricular systolic function is normal. The estimated ejection fraction is 50-55%. Left Atrium: The left atrial chamber size is normal. Right Ventricle: The right ventricular cavity size is normal. Right Atrium: The right atrial cavity size is normal. Aortic Valve: The aortic valve leaflets are moderately thickened. There is trace of aortic regurgitation. There is no evidence of aortic stenosis. Mitral Valve: The mitral valve leaflets are mildly thickened. There is trace of mitral regurgitation. There is no evidence of mitral stenosis. Tricuspid Valve: There is mild tricuspid regurgitation. No pulmonary hypertension is noted. Pulmonic Valve: There is trace pulmonic regurgitation. Pericardium: There is no pericardial effusion. Aorta: There is no dilatation of the aortic root. Venous: The inferior vena cava appears normal in size. Contrast: Definity was used to optimize study. Intravenous contrast was used to enhance endocardial border definition. Measurements Chambers 2D Name Value Normal Range Ao root diameter (2D) 3.4 cm (2 - 3.7) Aortic Valve Name Value Normal Range AV Vmax 0.98 m/sec - AV VTI 16.76 cm - AV peak gradient 3.83 mmHg - AV mean gradient 2.57 mmHg - LVOT diameter 3.11 cm - LVOT Vmax 0.68 m/sec - LVOT VTI 11.52 cm - LVOT peak gradient 1.84 mmHg - LVOT mean gradient 1.27 mmHg - SV LVOT 87.31 ml - MALOU (continuity Vmax) 5.24 cm2 - MALOU (continuity VTI) 5.21 cm2 - Tricuspid Valve Name Value Normal Range IVC diameter 2.24 cm (1.2 - 2.3) Hoffman/IV: Voiding Method Indwelling Catheter IV Catheter Type [Right INT / Saline Lock Forearm] IV Catheter Type [Right Hand] Peripheral IV IV Catheter Type [Right Upper INT / Saline Lock arm] IV Catheter Type [Left Upper Mid-line arm] IV Catheter Type [Left Forearm INT / Saline Lock ] IV Catheter Type [Left Hand] Peripheral IV IV Catheter Type [Left Wrist] INT / Saline Lock IV Catheter Type [Right Peripheral IV Antecubital] Active Medications - Current Medications Current Medications: Generic Name Dose Route Start Last Admin Trade Name Freq PRN Reason Stop Dose Admin Acetaminophen 650 mg 12/31/19 11:43 02/19/20 17:01 Tylenol FEEDTUBE 650 mg Q6H PRN Administration Pain, Mild (1-3) Lipase/Protease/Amylase 1 each 01/09/20 12:01 Pancrepetr [place] 10,500 Unit FEEDTUBE PRN PRN For Clogged Feeding Tube Apixaban 5 mg 01/22/20 22:00 02/20/20 23:36 Eliquis PO 5 mg Q12HR CAR Administration Protocol Atorvastatin Calcium 40 mg 01/20/20 22:00 02/20/20 23:36 Lipitor PO 40 mg QHS CAR Administration Clopidogrel Bisulfate 75 mg 01/21/20 06:00 02/20/20 09:16 Plavix PO 75 mg QDAY CAR Administration Dextrose 50 ml 01/31/20 18:51 02/05/20 00:56 D50w (25gm) Syringe IV 50 ml Q30MIN PRN Administration Hypoglycemia Protocol Digoxin 0.125 mg 02/10/20 17:00 02/20/20 16:40 Lanoxin IV 0.125 mg DAILY@1700 CAR Administration Glycopyrrolate 2 mg 02/20/20 20:00 02/20/20 23:38 Robinul PO 2 mg TID CAR Administration Haloperidol Lactate 5 mg 02/10/20 14:20 02/17/20 04:49 Haldol IV 5 mg Q6H PRN Administration Agitation Hydrophilic Ointment 1 applic 01/17/20 15:26 Vaseline Lip Therapy TP DIRECT PRN Dry Lips Insulin Human Regular 0 unit 02/01/20 18:00 02/21/20 06:27 Humulin R SUB-Q Not Given Q6H CAR Protocol Lansoprazole 30 mg 02/05/20 16:00 02/20/20 09:16 Prevacid Solutab FEEDTUBE 30 mg QDAY CAR Administration Metoprolol Tartrate 5 mg 01/11/20 08:00 02/16/20 22:00 Metoprolol IV 5 mg Q6H PRN Administration SEE INSTRUCTIONS Midodrine 15 mg 02/04/20 16:00 02/20/20 16:06 Proamatine PO 15 mg TID@0800,1200,1600 CAR Administration Morphine Sulfate 2 mg 01/06/20 15:41 02/21/20 08:30 Morphine IV 2 mg Q4H PRN Administration Pain, Moderate (4-6) Multi-Ingred Cream/Lotion/Oil/Oint 1 applic 02/01/20 15:52 Artificial Tears Ophth Oint OU Q4HR PRN Dry Eye(s) Nitroglycerin 0.4 mg 01/19/20 21:09 01/20/20 03:03 Nitrostat SL 0.4 mg .Q5MIN PRN Administration Chest Pain Ondansetron HCl 4 mg 01/05/20 14:37 02/16/20 17:25 Zofran IV 4 mg Q8H PRN Administration Nausea And Vomiting Polyethylene Glycol 17 gm 12/04/19 22:00 02/20/20 23:36 Miralax 3350 PO 17 gm QHS CAR Administration Quetiapine Fumarate 300 mg 01/13/20 22:00 02/20/20 23:36 Seroquel PO 300 mg BID CAR Administration Scopolamine 1 each 01/07/20 20:00 01/07/20 21:08 Transderm-Scop TD 1 each Q72HR CAR Administration Simple Syrup 15 ml 01/09/20 12:01 Simple Syrup FEEDTUBE PRN PRN Hypoglycemia Simple Syrup 30 ml 01/09/20 12:01 Simple Syrup FEEDTUBE PRN PRN Hypoglycemia Sodium Bicarbonate 325 mg 01/09/20 12:01 Sodium Bicarbonate FEEDTUBE PRN PRN For Clogged Feeding Tube Sodium Chloride 10 ml 11/24/19 10:00 02/20/20 23:37 Sodium Chloride Flush Syringe 10 Ml IV 10 ml BID CAR Administration Tamsulosin HCl 0.8 mg 12/20/19 22:00 02/20/20 23:36 Flomax PO 0.8 mg QHS CAR Administration Nutrition/Malnutrition Assess - Dietary Evaluation Nutrition/Malnutrition Findings: Nutrition Notes Start: 11/24/19 12:22 Freq: Status: Active Protocol: Document 02/19/20 09:28 LP (Rec: 02/19/20 09:30 LP [id number]) Nutrition Notes Initial or Follow up Reassessment Current Diagnosis Coronary Artery Disease,Heart Failure,Respiratory Failure, Stroke,Hyperlipidemia Other Pertinent Diagnosis Partial SBO, pneu Current Diet Vital AF 1.2 at 75ml/hr Labs/Tests Na 145 02/16/20 Pertinent Medications Reviewed Height 6 ft 2 in Weight 115.9 kg [place] Body Weight (kg) 86.36 BMI 32.8 Weight change and time frame Wt change noted. Weight Status Obese Subjective/Other Information Pt continues tolerating TF at goal. Na now WNL. Percent of energy/protein needs met: 99%/100% Burn Absent Trauma Absent GI Symptoms None Current % PO Negligible Minimum of two criteria Yes Muscle Mass Mild Depletion (non-severe) Fluid Accumulation Mild (non-severe) Reduced [employer] Strength Measurably Reduced (severe) #2 Nutrition Diagnosis Malnutrition Diagnosis Progress(for reassessment Continues documentation) #1 Nutrition Diagnosis Inadequate oral intake Diagnosis Progress(for reassessment Continues documentation) Is patient on ventilator? Yes Is Patient Ambulatory and/or Out of Bed No REE-([place]-St. Jeor-confined to bed) 2433.156 Kcal/Kg value to use for calculation 20 Approximate Energy Requirements Using 2318 kcal/Kg Calculation Used for Recommendations Kcal/kg Additional Notes Protein needs are 117-147g (1. 2-1.5 g/kg AdBW of 97.78kg) Fluid needs are 1.5L Nutrition Intervention Change Diet Order: Continue TF via PEG Nutrition Support: Vital AF 1.2 at 75ml/hr. increase Flush 250ml q4h for hypernatremia Flush 100ml q4h once hypernatremia is resolved Kcal 2,160 Protein (gm) 135 Fluid (mL) 1,460 Goal #1 Meet at least 75% of pt's energy and protein needs Goal #2 Weight maintenance Anticipated Discharge Needs: unable to determine at this time Follow-Up By: 02/26/20 Additional Comments Follow for stable TF
[2020-02-21] MEDS: GLYCOPYRROLATE 1 MG TAB PO SCH ×3 (10:51→21:08)
[2020-02-21] MEDS: QUEtiapine 100 MG TAB PO SCH ×2 (10:51→21:09)
[2020-02-21] MEDS: MIDODRINE 5 MG TAB PO SCH ×3 (10:51→16:51)
[2020-02-21] MEDS: CLOPIDOGREL 75 MG TAB PO SCH (10:51)
[2020-02-21] MEDS: APIXABAN 5 MG TAB PO SCH ×2 (10:51→21:10)
[2020-02-21] MEDS: LANSOPRAZOLE 30 MG SOLUTAB FEEDTUBE SCH (10:51)
[2020-02-21] MEDS: DIGOXIN 0.5 MG/2 ML INJ IV SCH (16:51)
--- NOTE | 2020-02-21 17:32 | Progress Note ---
Assessment and Plan Acute hypoxemic respiratory failure Bilateral pneumonia, community acquired. Acute LLL branch P.E. Acute DVT Person under investigation for COVID-19 infection. Acute congestive heart failure exacerbation. History of cerebrovascular accident. Acute chronic obstructive pulmonary disease exacerbation. Hypertension and hypertensive urgency at presentation. History of arthritis. Leukocytosis. Lactic acidosis. Oropharyngeal dysphagia - continue daily SAT's and SBT assessment as tolerated -Colace, Reglan for bowel regimen Continue to hold tube feedings fro now - continue prn haldol for agitation to avoid hypoventilation - continue Flomax - Midodrine for blood pressure - prn mucomyst nebs re: secretions - continue full anticoagulation with Apixaban - continue seroquel for anxiolysis / delirium - continue to wean oxygen for O2 sats > 92% - continue bronchodilators with routine trach care and pulmonary hygiene per RT - continue Robinul & Scopolamine for secretion control - VAP bundle addressed (Aspiration precautions, HOB >40) - continue to wean per pulmonary driven protocols - continue prn analgesia per CPOT score - Avoid delirium (no benzodiazepines if they can be avoided) - Maintain sleep-wake cycle - enteral nutrition at goal rate as tolerated - continue accuchecks with glycemic control per SSI for target blood glucose goal of 140-180 mg/dL while critically ill; Avoid hypoglycemia - for VTE he is on IV Heparin - continue stress ulcer prophylaxis with Famotidine - continue mobility protocols for pressure ulcer prevention - continue fall precautions - continue wound care management per RN / WCT - Supportive transfusions to keep HgB>7g/dL - Continue to monitor neurologic function - Continue all supportive care ........ re-evaluate in am & prn CONDITION: CRITICAL PROGNOSIS: GUARDED CODE STATUS: FULL CODE The high probability of a clinically significant, sudden or life threatening deterioration of the [Respiratory, cardiovascular & neurological] system(s) required my full and direct attention, intervention and personal management. The aggregate critical care time was [32] minutes without overlap. Time includes spent on [x] Data Review and interpretation [x] Patient assessment and monitoring of vital signs [x] Documentation [x] Medication orders and management Subjective Date of service: 02/21/20 Principal diagnosis: Ac hypoxemic resp failure; Pneumonia; PUI COVID-19; CHF; COPD; HTN Interval history: Patient is seen today for: Acute hypoxemic respiratory failure; Adan. Pneumonia (CAP); PUI COVID-19 infection; AE-CHF; AE-COPD; H/O CVA; HTN; PE, DVT Seen and examined at bedside; 24 hour events reviewed; nursing and respiratory care staff consulted; no adverse overnight events reported to me; resting peacefully in bed; s/p trach on full support, awake and alert ,did not tolerate PSV today. Tube feedings on held for ongoing vomiting overnight Size#6 Shiley, Mouths words to make needs known, is interactive Objective Vital Signs - 12hr 02/21/20 02/21/20 02/21/20 06:01 06:30 07:00 Temperature Pulse Rate 98 H 90 93 H Pulse Rate [ From Monitor] Respiratory 27 H 15 19 Rate Blood Pressure 112/82 100/73 110/75 O2 Sat by Pulse 94 97 Oximetry O2 Sat by Pulse Oximetry [ Assessment] 02/21/20 02/21/20 02/21/20 07:30 08:00 08:27 Temperature 97.9 F Pulse Rate 101 H 89 106 H Pulse Rate [ 84 From Monitor] Respiratory 25 H 26 H 16 Rate Blood Pressure 112/78 105/81 97/70 O2 Sat by Pulse 98 98 98 Oximetry O2 Sat by Pulse 98 Oximetry [ Assessment] 02/21/20 02/21/20 02/21/20 08:30 09:00 09:30 Temperature Pulse Rate 80 95 H 94 H Pulse Rate [ From Monitor] Respiratory 16 17 23 Rate Blood Pressure 97/70 105/78 97/79 O2 Sat by Pulse 97 95 95 Oximetry O2 Sat by Pulse Oximetry [ Assessment] 02/21/20 02/21/20 02/21/20 10:00 10:30 11:00 Temperature Pulse Rate 91 H 90 96 H Pulse Rate [ From Monitor] Respiratory 21 26 H 24 Rate Blood Pressure 99/84 105/78 111/80 O2 Sat by Pulse 95 98 95 Oximetry O2 Sat by Pulse Oximetry [ Assessment] 02/21/20 02/21/20 02/21/20 11:30 11:36 11:39 Temperature Pulse Rate 87 87 Pulse Rate [ 87 From Monitor] Respiratory 19 22 Rate Blood Pressure 104/78 O2 Sat by Pulse 98 95 Oximetry O2 Sat by Pulse Oximetry [ Assessment] 02/21/20 02/21/20 02/21/20 12:00 12:30 12:37 Temperature 98.0 F Pulse Rate 84 85 Pulse Rate [ From Monitor] Respiratory 19 15 21 Rate Blood Pressure 113/76 104/75 104/75 O2 Sat by Pulse 95 94 96 Oximetry O2 Sat by Pulse Oximetry [ Assessment] 02/21/20 02/21/20 02/21/20 13:00 13:30 14:00 Temperature Pulse Rate 109 H 95 H 88 Pulse Rate [ From Monitor] Respiratory 21 26 H 16 Rate Blood Pressure 95/83 102/78 95/71 O2 Sat by Pulse 93 97 97 Oximetry O2 Sat by Pulse Oximetry [ Assessment] 02/21/20 02/21/20 02/21/20 14:30 15:00 15:30 Temperature Pulse Rate 85 89 95 H Pulse Rate [ From Monitor] Respiratory 16 19 22 Rate Blood Pressure 93/72 105/83 106/73 O2 Sat by Pulse 97 95 97 Oximetry O2 Sat by Pulse Oximetry [ Assessment] 02/21/20 02/21/20 02/21/20 15:43 15:55 16:00 Temperature 97.9 F Pulse Rate 95 H 87 Pulse Rate [ 94 H From Monitor] Respiratory 21 17 Rate Blood Pressure 113/78 O2 Sat by Pulse 94 95 Oximetry O2 Sat by Pulse Oximetry [ Assessment] 02/21/20 02/21/20 02/21/20 16:51 16:54 16:55 Temperature Pulse Rate 102 H 86 Pulse Rate [ From Monitor] Respiratory 25 H Rate Blood Pressure 125/94 125/94 O2 Sat by Pulse 99 Oximetry O2 Sat by Pulse 98 Oximetry [ Assessment] Constitutional: alert, other (elelelderly and obese male, normocephalic with m ildly increased respiratory effort at rest) Eyes: non-icteric ENT: oropharynx moist, other (+ midline tracheostomy) Neck: supple, no JVD Effort: mildly labored Ascultation: Bilateral: clear, diminished breath sounds, rhonchi, other (tracheal secretions ) Percussion: Bilateral: not dull Cardiovascular: irregular rhythm Gastrointestinal: normoactive bowel sounds, soft, non-tender, non-distended (pro tuberant), other (protuberant; PEG in place) Integumentary: normal Extremities: no cyanosis, pulses normal, no ischemia or petechiae, edema (bilateral lower) Neurologic: non-focal exam (moves extremities), pupils equal and round, other (intermittent agitation) Psychiatric: anxious CBC and BMP: 03/09/20 06:32 03/09/20 06:32 ABG, PT/INR, D-dimer: ABG ABG pH 7.461 pH Units (7.350-7.450) H 02/20/20 06:45 POC ABG pCO2 34.8 mmHg (32.0-48.0) 02/11/20 14:11 ABG pCO2 47.8 mm Hg 02/20/20 06:45 POC ABG pO2 77.7 mmHg (83-108) L 02/11/20 14:11 ABG pO2 88.7 mm Hg (80.0-90.0) 02/20/20 06:45 POC ABG HCO3 26.7 02/11/20 14:11 ABG O2 Saturation 97.2 % (95.0-99.0) 02/20/20 06:45 PT/INR, D-dimer PT 27.0 Sec. (12.2-14.9) H 02/07/20 15:03 INR 2.46 (0.87-1.13) H 02/07/20 15:03 Abnormal lab findings: Abnormal Labs 11/24/19 11/24/19 11/24/19 02:53 02:53 03:45 WBC 14.3 H RBC Hgb Hct MCHC RDW 17.2 H MCV MCH Lymph % (Auto) Gordon % (Auto) Gordon # Eos # Lymph # (Auto) Gordon # (Auto) Eos # (Auto) Seg Neutrophils % Seg Neuts % (Manual) Baso # (Auto) Lymphocytes % (Manual) Monocytes % (Manual) Eosinophils % (Manual) Basophils % (Manual) Seg Neutrophils # Seg Neutrophils # Man 8.3 H Lymphocytes # (Manual) Monocytes # (Manual) 0.9 H Eosinophils # (Manual) Nucleated RBC % Basophils # (Manual) PT INR APTT Heparin Anti-Xa Level ABG pH 7.313 L POC ABG pO2 ABG pO2 102.8 H ABG HCO3 ABG O2 Saturation ABG Base Excess -2.9 L POC ABG pCO2 ABG Hemoglobin ABG Oxyhemoglobin ABG Chloride ABG Glucose Oxyhemoglobin 93.9 L Sodium Potassium Chloride Carbon Dioxide BUN Creatinine Glucose 195 H POC Glucose Lactic Acid Calcium Phosphorus Magnesium AST ALT Lactate Dehydrogenase Total Bilirubin Direct Bilirubin CK-MB (CK-2) 4.3 H C-Reactive Protein NT-Pro-B Natriuret Pep 1181 H Total Protein Albumin Arterial Blood Glucose Urine WBC (Auto) Urine Creatinine 11/24/19 11/24/19 11/24/19 04:53 04:53 10:37 WBC RBC Hgb Hct MCHC RDW MCV MCH Lymph % (Auto) Gordon % (Auto) Gordon # Eos # Lymph # (Auto) Gordon # (Auto) Eos # (Auto) Seg Neutrophils % Seg Neuts % (Manual) Baso # (Auto) Lymphocytes % (Manual) Monocytes % (Manual) Eosinophils % (Manual) Basophils % (Manual) Seg Neutrophils # Seg Neutrophils # Man Lymphocytes # (Manual) Monocytes # (Manual) Eosinophils # (Manual) Nucleated RBC % Basophils # (Manual) PT INR APTT Heparin Anti-Xa Level ABG pH POC ABG pO2 ABG pO2 ABG HCO3 ABG O2 Saturation ABG Base Excess POC ABG pCO2 ABG Hemoglobin ABG Oxyhemoglobin ABG Chloride ABG Glucose Oxyhemoglobin Sodium Potassium Chloride Carbon Dioxide BUN Creatinine Glucose 162 H POC Glucose Lactic Acid 2.40 H* 2.50 H* Calcium Phosphorus Magnesium AST ALT Lactate Dehydrogenase 240 H Total Bilirubin Direct Bilirubin CK-MB (CK-2) C-Reactive Protein NT-Pro-B Natriuret Pep Total Protein Albumin Arterial Blood Glucose Urine WBC (Auto) Urine Creatinine 11/24/19 11/24/19 11/24/19 12:21 14:50 19:54 WBC RBC Hgb Hct MCHC RDW MCV MCH Lymph % (Auto) Gordon % (Auto) Gordon # Eos # Lymph # (Auto) Gordon # (Auto) Eos # (Auto) Seg Neutrophils % Seg Neuts % (Manual) Baso # (Auto) Lymphocytes % (Manual) Monocytes % (Manual) Eosinophils % (Manual) Basophils % (Manual) Seg Neutrophils # Seg Neutrophils # Man Lymphocytes # (Manual) Monocytes # (Manual) Eosinophils # (Manual) Nucleated RBC % Basophils # (Manual) PT INR APTT Heparin Anti-Xa Level ABG pH POC ABG pO2 ABG pO2 ABG HCO3 ABG O2 Saturation ABG Base Excess POC ABG pCO2 ABG Hemoglobin ABG Oxyhemoglobin ABG Chloride ABG Glucose Oxyhemoglobin Sodium Potassium Chloride Carbon Dioxide BUN Creatinine Glucose POC Glucose 145 H 143 H 124 H Lactic Acid Calcium Phosphorus Magnesium AST ALT Lactate Dehydrogenase Total Bilirubin Direct Bilirubin CK-MB (CK-2) C-Reactive Protein NT-Pro-B Natriuret Pep Total Protein Albumin Arterial Blood Glucose Urine WBC (Auto) Urine Creatinine 11/25/19 11/25/19 11/25/19 00:18 03:18 05:11 WBC 13.7 H RBC Hgb Hct MCHC RDW 17.1 H MCV MCH Lymph % (Auto) 10.8 L Gordon % (Auto) 8.7 H Gordon # 1.2 H Eos # Lymph # (Auto) Gordon # (Auto) Eos # (Auto) Seg Neutrophils % 80.2 H Seg Neuts % (Manual) Baso # (Auto) Lymphocytes % (Manual) Monocytes % (Manual) Eosinophils % (Manual) Basophils % (Manual) Seg Neutrophils # 11.0 H Seg Neutrophils # Man Lymphocytes # (Manual) Monocytes # (Manual) Eosinophils # (Manual) Nucleated RBC % Basophils # (Manual) PT INR APTT Heparin Anti-Xa Level ABG pH 7.333 L POC ABG pO2 ABG pO2 61.2 L ABG HCO3 ABG O2 Saturation 90.2 L ABG Base Excess POC ABG pCO2 ABG Hemoglobin 13.7 L ABG Oxyhemoglobin ABG Chloride ABG Glucose Oxyhemoglobin 88.2 L Sodium Potassium Chloride Carbon Dioxide BUN Creatinine Glucose POC Glucose 109 H Lactic Acid Calcium Phosphorus Magnesium AST ALT Lactate Dehydrogenase Total Bilirubin Direct Bilirubin CK-MB (CK-2) C-Reactive Protein NT-Pro-B Natriuret Pep Total Protein Albumin Arterial Blood Glucose Urine WBC (Auto) Urine Creatinine 11/25/19 11/25/19 11/26/19 05:11 11:40 03:12 WBC RBC Hgb Hct MCHC RDW MCV MCH Lymph % (Auto) Gordon % (Auto) Gordon # Eos # Lymph # (Auto) Gordon # (Auto) Eos # (Auto) Seg Neutrophils % Seg Neuts % (Manual) Baso # (Auto) Lymphocytes % (Manual) Monocytes % (Manual) Eosinophils % (Manual) Basophils % (Manual) Seg Neutrophils # Seg Neutrophils # Man Lymphocytes # (Manual) Monocytes # (Manual) Eosinophils # (Manual) Nucleated RBC % Basophils # (Manual) PT INR APTT Heparin Anti-Xa Level ABG pH POC ABG pO2 ABG pO2 155.1 H ABG HCO3 27.8 H ABG O2 Saturation ABG Base Excess POC ABG pCO2 ABG Hemoglobin 12.2 L ABG Oxyhemoglobin ABG Chloride ABG Glucose Oxyhemoglobin Sodium Potassium Chloride Carbon Dioxide BUN 23 H Creatinine Glucose 110 H POC Glucose 108 H Lactic Acid Calcium Phosphorus Magnesium AST ALT Lactate Dehydrogenase Total Bilirubin Direct Bilirubin CK-MB (CK-2) C-Reactive Protein NT-Pro-B Natriuret Pep Total Protein Albumin Arterial Blood Glucose Urine WBC (Auto) Urine Creatinine 11/26/19 11/26/19 11/26/19 06:17 10:43 10:43 WBC 11.4 H RBC Hgb Hct MCHC RDW 17.1 H MCV MCH Lymph % (Auto) Gordon % (Auto) Gordon # Eos # Lymph # (Auto) Gordon # (Auto) Eos # (Auto) Seg Neutrophils % Seg Neuts % (Manual) Baso # (Auto) Lymphocytes % (Manual) Monocytes % (Manual) Eosinophils % (Manual) Basophils % (Manual) Seg Neutrophils # Seg Neutrophils # Man Lymphocytes # (Manual) Monocytes # (Manual) Eosinophils # (Manual) Nucleated RBC % Basophils # (Manual) PT INR APTT Heparin Anti-Xa Level ABG pH POC ABG pO2 ABG pO2 ABG HCO3 ABG O2 Saturation ABG Base Excess POC ABG pCO2 ABG Hemoglobin ABG Oxyhemoglobin ABG Chloride ABG Glucose Oxyhemoglobin Sodium Potassium Chloride Carbon Dioxide BUN 29 H Creatinine Glucose POC Glucose 107 H Lactic Acid Calcium Phosphorus Magnesium AST ALT Lactate Dehydrogenase Total Bilirubin Direct Bilirubin CK-MB (CK-2) C-Reactive Protein NT-Pro-B Natriuret Pep Total Protein Albumin Arterial Blood Glucose Urine WBC (Auto) Urine Creatinine 11/26/19 11/27/19 11/27/19 17:11 01:53 04:11 WBC RBC Hgb Hct MCHC RDW MCV MCH Lymph % (Auto) Gordon % (Auto) Gordon # Eos # Lymph # (Auto) Gordon # (Auto) Eos # (Auto) Seg Neutrophils % Seg Neuts % (Manual) Baso # (Auto) Lymphocytes % (Manual) Monocytes % (Manual) Eosinophils % (Manual) Basophils % (Manual) Seg Neutrophils # Seg Neutrophils # Man Lymphocytes # (Manual) Monocytes # (Manual) Eosinophils # (Manual) Nucleated RBC % Basophils # (Manual) PT INR APTT Heparin Anti-Xa Level ABG pH POC ABG pO2 ABG pO2 ABG HCO3 29.2 H ABG O2 Saturation ABG Base Excess 3.4 H POC ABG pCO2 ABG Hemoglobin 13.3 L ABG Oxyhemoglobin ABG Chloride ABG Glucose Oxyhemoglobin 94.5 L Sodium Potassium Chloride Carbon Dioxide BUN Creatinine Glucose POC Glucose 113 H 108 H Lactic Acid Calcium Phosphorus Magnesium AST ALT Lactate Dehydrogenase Total Bilirubin Direct Bilirubin CK-MB (CK-2) C-Reactive Protein NT-Pro-B Natriuret Pep Total Protein Albumin Arterial Blood Glucose Urine WBC (Auto) Urine Creatinine 11/27/19 11/28/19 11/28/19 05:27 05:00 05:25 WBC RBC Hgb Hct MCHC RDW MCV MCH Lymph % (Auto) Gordon % (Auto) Gordon # Eos # Lymph # (Auto) Gordon # (Auto) Eos # (Auto) Seg Neutrophils % Seg Neuts % (Manual) Baso # (Auto) Lymphocytes % (Manual) Monocytes % (Manual) Eosinophils % (Manual) Basophils % (Manual) Seg Neutrophils # Seg Neutrophils # Man Lymphocytes # (Manual) Monocytes # (Manual) Eosinophils # (Manual) Nucleated RBC % Basophils # (Manual) PT INR APTT Heparin Anti-Xa Level ABG pH POC ABG pO2 68.1 L ABG pO2 ABG HCO3 ABG O2 Saturation ABG Base Excess POC ABG pCO2 ABG Hemoglobin ABG Oxyhemoglobin 91.2 L ABG Chloride ABG Glucose Oxyhemoglobin Sodium Potassium Chloride Carbon Dioxide BUN Creatinine Glucose POC Glucose 111 H 110 H Lactic Acid Calcium Phosphorus Magnesium AST ALT Lactate Dehydrogenase Total Bilirubin Direct Bilirubin CK-MB (CK-2) C-Reactive Protein NT-Pro-B Natriuret Pep Total Protein Albumin Arterial Blood Glucose Urine WBC (Auto) Urine Creatinine 11/28/19 11/28/19 11/28/19 12:08 13:47 13:47 WBC 11.3 H RBC Hgb Hct MCHC RDW 16.1 H MCV MCH Lymph % (Auto) Gordon % (Auto) 9.9 H Gordon # 1.1 H Eos # Lymph # (Auto) Gordon # (Auto) Eos # (Auto) Seg Neutrophils % 71.4 H Seg Neuts % (Manual) Baso # (Auto) Lymphocytes % (Manual) Monocytes % (Manual) Eosinophils % (Manual) Basophils % (Manual) Seg Neutrophils # 8.1 H Seg Neutrophils # Man Lymphocytes # (Manual) Monocytes # (Manual) Eosinophils # (Manual) Nucleated RBC % Basophils # (Manual) PT INR APTT Heparin Anti-Xa Level ABG pH POC ABG pO2 ABG pO2 ABG HCO3 ABG O2 Saturation ABG Base Excess POC ABG pCO2 ABG Hemoglobin ABG Oxyhemoglobin ABG Chloride ABG Glucose Oxyhemoglobin Sodium Potassium Chloride Carbon Dioxide BUN 23 H Creatinine Glucose 123 H POC Glucose 112 H Lactic Acid Calcium Phosphorus Magnesium AST ALT Lactate Dehydrogenase Total Bilirubin Direct Bilirubin CK-MB (CK-2) C-Reactive Protein NT-Pro-B Natriuret Pep Total Protein Albumin 3.7 L Arterial Blood Glucose Urine WBC (Auto) Urine Creatinine 11/28/19 11/29/19 11/29/19 17:26 03:55 17:04 WBC RBC Hgb Hct MCHC RDW MCV MCH Lymph % (Auto) Gordon % (Auto) Gordon # Eos # Lymph # (Auto) Gordon # (Auto) Eos # (Auto) Seg Neutrophils % Seg Neuts % (Manual) Baso # (Auto) Lymphocytes % (Manual) Monocytes % (Manual) Eosinophils % (Manual) Basophils % (Manual) Seg Neutrophils # Seg Neutrophils # Man Lymphocytes # (Manual) Monocytes # (Manual) Eosinophils # (Manual) Nucleated RBC % Basophils # (Manual) PT INR APTT Heparin Anti-Xa Level ABG pH POC ABG pO2 ABG pO2 65.7 L ABG HCO3 28.3 H ABG O2 Saturation 93.9 L ABG Base Excess 3.6 H POC ABG pCO2 ABG Hemoglobin 13.3 L ABG Oxyhemoglobin ABG Chloride ABG Glucose Oxyhemoglobin 91.5 L Sodium Potassium Chloride Carbon Dioxide BUN Creatinine Glucose POC Glucose 123 H 119 H Lactic Acid Calcium Phosphorus Magnesium AST ALT Lactate Dehydrogenase Total Bilirubin Direct Bilirubin CK-MB (CK-2) C-Reactive Protein NT-Pro-B Natriuret Pep Total Protein Albumin Arterial Blood Glucose Urine WBC (Auto) Urine Creatinine 11/30/19 11/30/19 11/30/19 04:17 04:17 04:56 WBC 13.4 H RBC Hgb Hct MCHC RDW 15.6 H MCV MCH Lymph % (Auto) Gordon % (Auto) Gordon # Eos # Lymph # (Auto) Gordon # (Auto) Eos # (Auto) Seg Neutrophils % Seg Neuts % (Manual) Baso # (Auto) Lymphocytes % (Manual) Monocytes % (Manual) Eosinophils % (Manual) Basophils % (Manual) Seg Neutrophils # Seg Neutrophils # Man Lymphocytes # (Manual) Monocytes # (Manual) Eosinophils # (Manual) Nucleated RBC % Basophils # (Manual) PT INR APTT Heparin Anti-Xa Level ABG pH POC ABG pO2 ABG pO2 56.3 L ABG HCO3 29.3 H ABG O2 Saturation 91.5 L ABG Base Excess 4.7 H POC ABG pCO2 ABG Hemoglobin 12.1 L ABG Oxyhemoglobin ABG Chloride ABG Glucose Oxyhemoglobin 89.2 L Sodium 147 H Potassium Chloride Carbon Dioxide BUN 30 H Creatinine Glucose 124 H POC Glucose Lactic Acid Calcium Phosphorus Magnesium AST ALT Lactate Dehydrogenase Total Bilirubin Direct Bilirubin CK-MB (CK-2) C-Reactive Protein NT-Pro-B Natriuret Pep Total Protein Albumin 3.8 L Arterial Blood Glucose Urine WBC (Auto) Urine Creatinine 11/30/19 11/30/19 11/30/19 05:51 11:54 18:17 WBC RBC Hgb Hct MCHC RDW MCV MCH Lymph % (Auto) Gordon % (Auto) Gordon # Eos # Lymph # (Auto) Gordon # (Auto) Eos # (Auto) Seg Neutrophils % Seg Neuts % (Manual) Baso # (Auto) Lymphocytes % (Manual) Monocytes % (Manual) Eosinophils % (Manual) Basophils % (Manual) Seg Neutrophils # Seg Neutrophils # Man Lymphocytes # (Manual) Monocytes # (Manual) Eosinophils # (Manual) Nucleated RBC % Basophils # (Manual) PT INR APTT Heparin Anti-Xa Level ABG pH POC ABG pO2 ABG pO2 ABG HCO3 ABG O2 Saturation ABG Base Excess POC ABG pCO2 ABG Hemoglobin ABG Oxyhemoglobin ABG Chloride ABG Glucose Oxyhemoglobin Sodium Potassium Chloride Carbon Dioxide BUN Creatinine Glucose POC Glucose 127 H 115 H 143 H Lactic Acid Calcium Phosphorus Magnesium AST ALT Lactate Dehydrogenase Total Bilirubin Direct Bilirubin CK-MB (CK-2) C-Reactive Protein NT-Pro-B Natriuret Pep Total Protein Albumin Arterial Blood Glucose Urine WBC (Auto) Urine Creatinine 12/01/19 12/01/19 12/01/19 01:18 05:22 12:16 WBC RBC Hgb Hct MCHC RDW MCV MCH Lymph % (Auto) Gordon % (Auto) Gordon # Eos # Lymph # (Auto) Gordon # (Auto) Eos # (Auto) Seg Neutrophils % Seg Neuts % (Manual) Baso # (Auto) Lymphocytes % (Manual) Monocytes % (Manual) Eosinophils % (Manual) Basophils % (Manual) Seg Neutrophils # Seg Neutrophils # Man Lymphocytes # (Manual) Monocytes # (Manual) Eosinophils # (Manual) Nucleated RBC % Basophils # (Manual) PT INR APTT Heparin Anti-Xa Level ABG pH POC ABG pO2 ABG pO2 ABG HCO3 ABG O2 Saturation ABG Base Excess POC ABG pCO2 ABG Hemoglobin ABG Oxyhemoglobin ABG Chloride ABG Glucose Oxyhemoglobin Sodium Potassium 3.5 L Chloride 107.8 H Carbon Dioxide BUN 37 H Creatinine Glucose 157 H POC Glucose 118 H 148 H Lactic Acid Calcium 8.2 L D Phosphorus Magnesium AST 48 H ALT 60 H Lactate Dehydrogenase 194 H Total Bilirubin Direct Bilirubin CK-MB (CK-2) C-Reactive Protein 8.50 H NT-Pro-B Natriuret Pep Total Protein 5.5 L Albumin 2.8 L Arterial Blood Glucose Urine WBC (Auto) Urine Creatinine 12/01/19 12/02/19 12/02/19 18:04 00:05 05:16 WBC 11.4 H RBC Hgb Hct MCHC RDW 15.9 H MCV MCH Lymph % (Auto) Gordon % (Auto) 9.9 H Gordon # 1.1 H Eos # Lymph # (Auto) Gordon # (Auto) Eos # (Auto) Seg Neutrophils % 70.3 H Seg Neuts % (Manual) Baso # (Auto) Lymphocytes % (Manual) Monocytes % (Manual) Eosinophils % (Manual) Basophils % (Manual) Seg Neutrophils # 8.0 H Seg Neutrophils # Man Lymphocytes # (Manual) Monocytes # (Manual) Eosinophils # (Manual) Nucleated RBC % Basophils # (Manual) PT INR APTT Heparin Anti-Xa Level ABG pH POC ABG pO2 ABG pO2 ABG HCO3 ABG O2 Saturation ABG Base Excess POC ABG pCO2 ABG Hemoglobin ABG Oxyhemoglobin ABG Chloride ABG Glucose Oxyhemoglobin Sodium Potassium Chloride Carbon Dioxide BUN Creatinine Glucose POC Glucose 143 H 107 H Lactic Acid Calcium Phosphorus Magnesium AST ALT Lactate Dehydrogenase Total Bilirubin Direct Bilirubin CK-MB (CK-2) C-Reactive Protein NT-Pro-B Natriuret Pep Total Protein Albumin Arterial Blood Glucose Urine WBC (Auto) Urine Creatinine 12/02/19 12/02/19 12/02/19 05:16 06:03 11:52 WBC RBC Hgb Hct MCHC RDW MCV MCH Lymph % (Auto) Gordon % (Auto) Gordon # Eos # Lymph # (Auto) Gordon # (Auto) Eos # (Auto) Seg Neutrophils % Seg Neuts % (Manual) Baso # (Auto) Lymphocytes % (Manual) Monocytes % (Manual) Eosinophils % (Manual) Basophils % (Manual) Seg Neutrophils # Seg Neutrophils # Man Lymphocytes # (Manual) Monocytes # (Manual) Eosinophils # (Manual) Nucleated RBC % Basophils # (Manual) PT INR APTT Heparin Anti-Xa Level ABG pH POC ABG pO2 ABG pO2 ABG HCO3 ABG O2 Saturation ABG Base Excess POC ABG pCO2 ABG Hemoglobin ABG Oxyhemoglobin ABG Chloride ABG Glucose Oxyhemoglobin Sodium 146 H Potassium Chloride Carbon Dioxide BUN 28 H Creatinine Glucose 123 H POC Glucose 110 H 152 H Lactic Acid Calcium Phosphorus Magnesium AST ALT Lactate Dehydrogenase Total Bilirubin Direct Bilirubin CK-MB (CK-2) C-Reactive Protein NT-Pro-B Natriuret Pep Total Protein Albumin Arterial Blood Glucose Urine WBC (Auto) Urine Creatinine 12/02/19 12/02/19 12/02/19 12:58 17:58 23:36 WBC RBC Hgb Hct MCHC RDW MCV MCH Lymph % (Auto) Gordon % (Auto) Gordon # Eos # Lymph # (Auto) Gordon # (Auto) Eos # (Auto) Seg Neutrophils % Seg Neuts % (Manual) Baso # (Auto) Lymphocytes % (Manual) Monocytes % (Manual) Eosinophils % (Manual) Basophils % (Manual) Seg Neutrophils # Seg Neutrophils # Man Lymphocytes # (Manual) Monocytes # (Manual) Eosinophils # (Manual) Nucleated RBC % Basophils # (Manual) PT INR APTT Heparin Anti-Xa Level ABG pH POC ABG pO2 78.1 L ABG pO2 ABG HCO3 ABG O2 Saturation ABG Base Excess POC ABG pCO2 ABG Hemoglobin ABG Oxyhemoglobin ABG Chloride ABG Glucose Oxyhemoglobin Sodium Potassium Chloride Carbon Dioxide BUN Creatinine Glucose POC Glucose 120 H 123 H Lactic Acid Calcium Phosphorus Magnesium AST ALT Lactate Dehydrogenase Total Bilirubin Direct Bilirubin CK-MB (CK-2) C-Reactive Protein NT-Pro-B Natriuret Pep Total Protein Albumin Arterial Blood Glucose Urine WBC (Auto) Urine Creatinine 12/03/19 12/03/19 12/03/19 06:03 06:14 11:46 WBC RBC Hgb Hct MCHC RDW MCV MCH Lymph % (Auto) Gordon % (Auto) Gordon # Eos # Lymph # (Auto) Gordon # (Auto) Eos # (Auto) Seg Neutrophils % Seg Neuts % (Manual) Baso # (Auto) Lymphocytes % (Manual) Monocytes % (Manual) Eosinophils % (Manual) Basophils % (Manual) Seg Neutrophils # Seg Neutrophils # Man Lymphocytes # (Manual) Monocytes # (Manual) Eosinophils # (Manual) Nucleated RBC % Basophils # (Manual) PT INR APTT Heparin Anti-Xa Level ABG pH POC ABG pO2 ABG pO2 ABG HCO3 ABG O2 Saturation ABG Base Excess POC ABG pCO2 ABG Hemoglobin ABG Oxyhemoglobin ABG Chloride ABG Glucose Oxyhemoglobin Sodium Potassium Chloride Carbon Dioxide BUN Creatinine Glucose POC Glucose 142 H 130 H Lactic Acid Calcium Phosphorus Magnesium AST ALT Lactate Dehydrogenase Total Bilirubin Direct Bilirubin CK-MB (CK-2) C-Reactive Protein NT-Pro-B Natriuret Pep Total Protein Albumin Arterial Blood Glucose Urine WBC (Auto) 8.0 H Urine Creatinine 12/03/19 12/03/19 12/04/19 15:50 17:39 00:04 WBC RBC Hgb Hct MCHC RDW MCV MCH Lymph % (Auto) Gordon % (Auto) Gordon # Eos # Lymph # (Auto) Gordon # (Auto) Eos # (Auto) Seg Neutrophils % Seg Neuts % (Manual) Baso # (Auto) Lymphocytes % (Manual) Monocytes % (Manual) Eosinophils % (Manual) Basophils % (Manual) Seg Neutrophils # Seg Neutrophils # Man Lymphocytes # (Manual) Monocytes # (Manual) Eosinophils # (Manual) Nucleated RBC % Basophils # (Manual) PT INR APTT Heparin Anti-Xa Level ABG pH POC ABG pO2 ABG pO2 ABG HCO3 ABG O2 Saturation ABG Base Excess POC ABG pCO2 ABG Hemoglobin ABG Oxyhemoglobin ABG Chloride ABG Glucose Oxyhemoglobin Sodium Potassium Chloride Carbon Dioxide BUN Creatinine Glucose POC Glucose 146 H 133 H Lactic Acid Calcium Phosphorus 2.40 L Magnesium AST ALT Lactate Dehydrogenase Total Bilirubin Direct Bilirubin CK-MB (CK-2) C-Reactive Protein NT-Pro-B Natriuret Pep Total Protein Albumin Arterial Blood Glucose Urine WBC (Auto) Urine Creatinine 12/04/19 12/04/19 12/04/19 03:58 03:58 05:22 WBC 12.5 H RBC Hgb 11.2 L Hct 35.2 L MCHC RDW 16.0 H MCV MCH Lymph % (Auto) Gordon % (Auto) 9.6 H Gordon # 1.2 H Eos # 0.5 H Lymph # (Auto) Gordon # (Auto) Eos # (Auto) Seg Neutrophils % Seg Neuts % (Manual) Baso # (Auto) Lymphocytes % (Manual) Monocytes % (Manual) Eosinophils % (Manual) Basophils % (Manual) Seg Neutrophils # 8.6 H Seg Neutrophils # Man Lymphocytes # (Manual) Monocytes # (Manual) Eosinophils # (Manual) Nucleated RBC % Basophils # (Manual) PT INR APTT Heparin Anti-Xa Level ABG pH POC ABG pO2 ABG pO2 ABG HCO3 ABG O2 Saturation ABG Base Excess POC ABG pCO2 ABG Hemoglobin ABG Oxyhemoglobin ABG Chloride ABG Glucose Oxyhemoglobin Sodium 146 H Potassium Chloride 108.6 H Carbon Dioxide BUN 30 H Creatinine 0.7 L Glucose 121 H POC Glucose 132 H Lactic Acid Calcium Phosphorus Magnesium AST ALT Lactate Dehydrogenase Total Bilirubin Direct Bilirubin CK-MB (CK-2) C-Reactive Protein NT-Pro-B Natriuret Pep Total Protein Albumin Arterial Blood Glucose Urine WBC (Auto) Urine Creatinine 12/04/19 12/04/19 12/05/19 13:26 18:43 00:19 WBC RBC Hgb Hct MCHC RDW MCV MCH Lymph % (Auto) Gordon % (Auto) Gordon # Eos # Lymph # (Auto) Gordon # (Auto) Eos # (Auto) Seg Neutrophils % Seg Neuts % (Manual) Baso # (Auto) Lymphocytes % (Manual) Monocytes % (Manual) Eosinophils % (Manual) Basophils % (Manual) Seg Neutrophils # Seg Neutrophils # Man Lymphocytes # (Manual) Monocytes # (Manual) Eosinophils # (Manual) Nucleated RBC % Basophils # (Manual) PT INR APTT Heparin Anti-Xa Level ABG pH POC ABG pO2 ABG pO2 ABG HCO3 ABG O2 Saturation ABG Base Excess POC ABG pCO2 ABG Hemoglobin ABG Oxyhemoglobin ABG Chloride ABG Glucose Oxyhemoglobin Sodium Potassium Chloride Carbon Dioxide BUN Creatinine Glucose POC Glucose 185 H 156 H 150 H Lactic Acid Calcium Phosphorus Magnesium AST ALT Lactate Dehydrogenase Total Bilirubin Direct Bilirubin CK-MB (CK-2) C-Reactive Protein NT-Pro-B Natriuret Pep Total Protein Albumin Arterial Blood Glucose Urine WBC (Auto) Urine Creatinine 12/05/19 12/05/19 12/05/19 03:37 03:37 05:14 WBC 16.3 H RBC Hgb 11.4 L Hct MCHC RDW 15.6 H MCV MCH Lymph % (Auto) 9.9 L Gordon % (Auto) 9.7 H Gordon # 1.6 H Eos # Lymph # (Auto) Gordon # (Auto) Eos # (Auto) Seg Neutrophils % 78.0 H Seg Neuts % (Manual) Baso # (Auto) Lymphocytes % (Manual) Monocytes % (Manual) Eosinophils % (Manual) Basophils % (Manual) Seg Neutrophils # 12.7 H Seg Neutrophils # Man Lymphocytes # (Manual) Monocytes # (Manual) Eosinophils # (Manual) Nucleated RBC % Basophils # (Manual) PT INR APTT Heparin Anti-Xa Level ABG pH POC ABG pO2 ABG pO2 ABG HCO3 ABG O2 Saturation ABG Base Excess POC ABG pCO2 ABG Hemoglobin ABG Oxyhemoglobin ABG Chloride ABG Glucose Oxyhemoglobin Sodium 146 H Potassium Chloride 107.2 H Carbon Dioxide BUN 27 H Creatinine 0.7 L Glucose 171 H POC Glucose 168 H Lactic Acid Calcium Phosphorus Magnesium AST ALT Lactate Dehydrogenase Total Bilirubin Direct Bilirubin CK-MB (CK-2) C-Reactive Protein NT-Pro-B Natriuret Pep Total Protein Albumin Arterial Blood Glucose Urine WBC (Auto) Urine Creatinine 12/05/19 12/05/19 12/05/19 12:31 18:10 23:58 WBC RBC Hgb Hct MCHC RDW MCV MCH Lymph % (Auto) Gordon % (Auto) Gordon # Eos # Lymph # (Auto) Gordon # (Auto) Eos # (Auto) Seg Neutrophils % Seg Neuts % (Manual) Baso # (Auto) Lymphocytes % (Manual) Monocytes % (Manual) Eosinophils % (Manual) Basophils % (Manual) Seg Neutrophils # Seg Neutrophils # Man Lymphocytes # (Manual) Monocytes # (Manual) Eosinophils # (Manual) Nucleated RBC % Basophils # (Manual) PT INR APTT Heparin Anti-Xa Level ABG pH POC ABG pO2 ABG pO2 ABG HCO3 ABG O2 Saturation ABG Base Excess POC ABG pCO2 ABG Hemoglobin ABG Oxyhemoglobin ABG Chloride ABG Glucose Oxyhemoglobin Sodium Potassium Chloride Carbon Dioxide BUN Creatinine Glucose POC Glucose 159 H 198 H 115 H Lactic Acid Calcium Phosphorus Magnesium AST ALT Lactate Dehydrogenase Total Bilirubin Direct Bilirubin CK-MB (CK-2) C-Reactive Protein NT-Pro-B Natriuret Pep Total Protein Albumin Arterial Blood Glucose Urine WBC (Auto) Urine Creatinine 12/06/19 12/06/19 12/06/19 05:24 05:24 05:25 WBC 14.9 H RBC Hgb 10.8 L Hct 34.0 L MCHC RDW 15.6 H MCV MCH Lymph % (Auto) 10.7 L Gordon % (Auto) 8.3 H Gordon # 1.2 H Eos # Lymph # (Auto) Gordon # (Auto) Eos # (Auto) Seg Neutrophils % 78.7 H Seg Neuts % (Manual) Baso # (Auto) Lymphocytes % (Manual) Monocytes % (Manual) Eosinophils % (Manual) Basophils % (Manual) Seg Neutrophils # 11.7 H Seg Neutrophils # Man Lymphocytes # (Manual) Monocytes # (Manual) Eosinophils # (Manual) Nucleated RBC % Basophils # (Manual) PT INR APTT Heparin Anti-Xa Level ABG pH POC ABG pO2 ABG pO2 ABG HCO3 ABG O2 Saturation ABG Base Excess POC ABG pCO2 ABG Hemoglobin ABG Oxyhemoglobin ABG Chloride ABG Glucose Oxyhemoglobin Sodium 148 H Potassium 5.1 H Chloride 107.6 H Carbon Dioxide BUN 27 H Creatinine 0.7 L Glucose 155 H POC Glucose 157 H Lactic Acid Calcium Phosphorus Magnesium AST ALT Lactate Dehydrogenase Total Bilirubin Direct Bilirubin CK-MB (CK-2) C-Reactive Protein NT-Pro-B Natriuret Pep Total Protein Albumin Arterial Blood Glucose Urine WBC (Auto) Urine Creatinine 12/07/19 12/07/19 12/07/19 00:13 05:34 11:33 WBC RBC Hgb Hct MCHC RDW MCV MCH Lymph % (Auto) Gordon % (Auto) Gordon # Eos # Lymph # (Auto) Gordon # (Auto) Eos # (Auto) Seg Neutrophils % Seg Neuts % (Manual) Baso # (Auto) Lymphocytes % (Manual) Monocytes % (Manual) Eosinophils % (Manual) Basophils % (Manual) Seg Neutrophils # Seg Neutrophils # Man Lymphocytes # (Manual) Monocytes # (Manual) Eosinophils # (Manual) Nucleated RBC % Basophils # (Manual) PT INR APTT Heparin Anti-Xa Level ABG pH POC ABG pO2 ABG pO2 ABG HCO3 ABG O2 Saturation ABG Base Excess POC ABG pCO2 ABG Hemoglobin ABG Oxyhemoglobin ABG Chloride ABG Glucose Oxyhemoglobin Sodium Potassium Chloride Carbon Dioxide BUN Creatinine Glucose POC Glucose 142 H 111 H 169 H Lactic Acid Calcium Phosphorus Magnesium AST ALT Lactate Dehydrogenase Total Bilirubin Direct Bilirubin CK-MB (CK-2) C-Reactive Protein NT-Pro-B Natriuret Pep Total Protein Albumin Arterial Blood Glucose Urine WBC (Auto) Urine Creatinine 12/07/19 12/07/19 12/07/19 12:41 13:25 18:19 WBC 12.4 H RBC 3.53 L Hgb 10.2 L Hct 32.1 L MCHC RDW 15.3 H MCV MCH Lymph % (Auto) 10.6 L Gordon % (Auto) 7.8 H Gordon # 1.0 H Eos # Lymph # (Auto) Gordon # (Auto) Eos # (Auto) Seg Neutrophils % 77.6 H Seg Neuts % (Manual) Baso # (Auto) Lymphocytes % (Manual) Monocytes % (Manual) Eosinophils % (Manual) Basophils % (Manual) Seg Neutrophils # 9.6 H Seg Neutrophils # Man Lymphocytes # (Manual) Monocytes # (Manual) Eosinophils # (Manual) Nucleated RBC % Basophils # (Manual) PT INR APTT Heparin Anti-Xa Level ABG pH POC ABG pO2 ABG pO2 ABG HCO3 ABG O2 Saturation ABG Base Excess POC ABG pCO2 ABG Hemoglobin ABG Oxyhemoglobin ABG Chloride ABG Glucose Oxyhemoglobin Sodium 149 H Potassium Chloride 108.4 H Carbon Dioxide BUN 26 H Creatinine 0.6 L Glucose 149 H POC Glucose 164 H Lactic Acid Calcium Phosphorus Magnesium 2.60 H AST 121 H ALT 145 H Lactate Dehydrogenase Total Bilirubin Direct Bilirubin CK-MB (CK-2) C-Reactive Protein NT-Pro-B Natriuret Pep Total Protein Albumin 2.6 L Arterial Blood Glucose Urine WBC (Auto) Urine Creatinine 12/07/19 12/08/19 12/08/19 22:25 00:02 03:55 WBC 13.3 H RBC 3.40 L Hgb 9.7 L Hct 30.8 L MCHC 31 L RDW 15.5 H MCV MCH Lymph % (Auto) Gordon % (Auto) 8.1 H Gordon # 1.1 H Eos # Lymph # (Auto) Gordon # (Auto) Eos # (Auto) Seg Neutrophils % 73.0 H Seg Neuts % (Manual) Baso # (Auto) Lymphocytes % (Manual) Monocytes % (Manual) Eosinophils % (Manual) Basophils % (Manual) Seg Neutrophils # 9.7 H Seg Neutrophils # Man Lymphocytes # (Manual) Monocytes # (Manual) Eosinophils # (Manual) Nucleated RBC % Basophils # (Manual) PT INR APTT Heparin Anti-Xa Level 0.12 L ABG pH POC ABG pO2 ABG pO2 ABG HCO3 ABG O2 Saturation ABG Base Excess POC ABG pCO2 ABG Hemoglobin ABG Oxyhemoglobin ABG Chloride ABG Glucose Oxyhemoglobin Sodium Potassium Chloride Carbon Dioxide BUN Creatinine Glucose POC Glucose 151 H Lactic Acid Calcium Phosphorus Magnesium AST ALT Lactate Dehydrogenase Total Bilirubin Direct Bilirubin CK-MB (CK-2) C-Reactive Protein NT-Pro-B Natriuret Pep Total Protein Albumin Arterial Blood Glucose Urine WBC (Auto) Urine Creatinine 12/08/19 12/08/19 12/08/19 03:55 05:21 06:01 WBC RBC Hgb Hct MCHC RDW MCV MCH Lymph % (Auto) Gordon % (Auto) Gordon # Eos # Lymph # (Auto) Gordon # (Auto) Eos # (Auto) Seg Neutrophils % Seg Neuts % (Manual) Baso # (Auto) Lymphocytes % (Manual) Monocytes % (Manual) Eosinophils % (Manual) Basophils % (Manual) Seg Neutrophils # Seg Neutrophils # Man Lymphocytes # (Manual) Monocytes # (Manual) Eosinophils # (Manual) Nucleated RBC % Basophils # (Manual) PT INR APTT Heparin Anti-Xa Level 0.20 L ABG pH POC ABG pO2 ABG pO2 ABG HCO3 ABG O2 Saturation ABG Base Excess POC ABG pCO2 ABG Hemoglobin ABG Oxyhemoglobin ABG Chloride ABG Glucose Oxyhemoglobin Sodium 149 H Potassium Chloride 108.0 H Carbon Dioxide BUN 28 H Creatinine 0.6 L Glucose 144 H POC Glucose 143 H Lactic Acid Calcium Phosphorus Magnesium AST 98 H ALT 145 H Lactate Dehydrogenase Total Bilirubin Direct Bilirubin CK-MB (CK-2) C-Reactive Protein NT-Pro-B Natriuret Pep Total Protein 6.0 L Albumin 2.4 L Arterial Blood Glucose Urine WBC (Auto) Urine Creatinine 12/08/19 12/08/19 12/08/19 12:08 18:11 23:53 WBC RBC Hgb Hct MCHC RDW MCV MCH Lymph % (Auto) Gordon % (Auto) Gordon # Eos # Lymph # (Auto) Gordon # (Auto) Eos # (Auto) Seg Neutrophils % Seg Neuts % (Manual) Baso # (Auto) Lymphocytes % (Manual) Monocytes % (Manual) Eosinophils % (Manual) Basophils % (Manual) Seg Neutrophils # Seg Neutrophils # Man Lymphocytes # (Manual) Monocytes # (Manual) Eosinophils # (Manual) Nucleated RBC % Basophils # (Manual) PT INR APTT Heparin Anti-Xa Level ABG pH POC ABG pO2 ABG pO2 ABG HCO3 ABG O2 Saturation ABG Base Excess POC ABG pCO2 ABG Hemoglobin ABG Oxyhemoglobin ABG Chloride ABG Glucose Oxyhemoglobin Sodium Potassium Chloride Carbon Dioxide BUN Creatinine Glucose POC Glucose 172 H 122 H 162 H Lactic Acid Calcium Phosphorus Magnesium AST ALT Lactate Dehydrogenase Total Bilirubin Direct Bilirubin CK-MB (CK-2) C-Reactive Protein NT-Pro-B Natriuret Pep Total Protein Albumin Arterial Blood Glucose Urine WBC (Auto) Urine Creatinine 12/09/19 12/09/19 12/09/19 04:03 04:03 05:53 WBC RBC Hgb 9.1 L Hct 28.9 L MCHC RDW MCV MCH Lymph % (Auto) Gordon % (Auto) Gordon # Eos # Lymph # (Auto) Gordon # (Auto) Eos # (Auto) Seg Neutrophils % Seg Neuts % (Manual) Baso # (Auto) Lymphocytes % (Manual) Monocytes % (Manual) Eosinophils % (Manual) Basophils % (Manual) Seg Neutrophils # Seg Neutrophils # Man Lymphocytes # (Manual) Monocytes # (Manual) Eosinophils # (Manual) Nucleated RBC % Basophils # (Manual) PT INR APTT Heparin Anti-Xa Level 0.15 L ABG pH POC ABG pO2 ABG pO2 ABG HCO3 ABG O2 Saturation ABG Base Excess POC ABG pCO2 ABG Hemoglobin ABG Oxyhemoglobin ABG Chloride ABG Glucose Oxyhemoglobin Sodium Potassium Chloride Carbon Dioxide BUN Creatinine Glucose POC Glucose 124 H Lactic Acid Calcium Phosphorus Magnesium AST ALT Lactate Dehydrogenase Total Bilirubin Direct Bilirubin CK-MB (CK-2) C-Reactive Protein NT-Pro-B Natriuret Pep Total Protein Albumin Arterial Blood Glucose Urine WBC (Auto) Urine Creatinine 12/09/19 12/09/19 12/10/19 09:43 12:41 00:13 WBC RBC Hgb Hct MCHC RDW MCV MCH Lymph % (Auto) Gordon % (Auto) Gordon # Eos # Lymph # (Auto) Gordon # (Auto) Eos # (Auto) Seg Neutrophils % Seg Neuts % (Manual) Baso # (Auto) Lymphocytes % (Manual) Monocytes % (Manual) Eosinophils % (Manual) Basophils % (Manual) Seg Neutrophils # Seg Neutrophils # Man Lymphocytes # (Manual) Monocytes # (Manual) Eosinophils # (Manual) Nucleated RBC % Basophils # (Manual) PT INR APTT Heparin Anti-Xa Level ABG pH POC ABG pO2 ABG pO2 ABG HCO3 ABG O2 Saturation ABG Base Excess POC ABG pCO2 ABG Hemoglobin ABG Oxyhemoglobin ABG Chloride ABG Glucose Oxyhemoglobin Sodium Potassium Chloride Carbon Dioxide BUN 25 H Creatinine 0.6 L Glucose 131 H POC Glucose 109 H 120 H Lactic Acid Calcium Phosphorus Magnesium AST ALT Lactate Dehydrogenase Total Bilirubin Direct Bilirubin CK-MB (CK-2) C-Reactive Protein NT-Pro-B Natriuret Pep Total Protein Albumin Arterial Blood Glucose Urine WBC (Auto) Urine Creatinine 12/10/19 12/10/19 12/10/19 04:14 04:14 12:00 WBC 13.3 H RBC 3.34 L Hgb 9.6 L Hct 30.4 L MCHC RDW 15.4 H MCV MCH Lymph % (Auto) Gordon % (Auto) Gordon # Eos # Lymph # (Auto) Gordon # (Auto) Eos # (Auto) Seg Neutrophils % Seg Neuts % (Manual) 75.0 H Baso # (Auto) Lymphocytes % (Manual) 13.0 L Monocytes % (Manual) 8.0 H Eosinophils % (Manual) Basophils % (Manual) 2.0 H Seg Neutrophils # Seg Neutrophils # Man 10.0 H Lymphocytes # (Manual) Monocytes # (Manual) 1.1 H Eosinophils # (Manual) Nucleated RBC % Basophils # (Manual) 0.3 H PT INR APTT Heparin Anti-Xa Level ABG pH POC ABG pO2 ABG pO2 ABG HCO3 ABG O2 Saturation ABG Base Excess POC ABG pCO2 ABG Hemoglobin ABG Oxyhemoglobin ABG Chloride ABG Glucose Oxyhemoglobin Sodium 147 H Potassium Chloride 108.3 H Carbon Dioxide BUN 21 H Creatinine 0.6 L Glucose 104 H POC Glucose 133 H Lactic Acid Calcium Phosphorus Magnesium AST ALT Lactate Dehydrogenase Total Bilirubin Direct Bilirubin CK-MB (CK-2) C-Reactive Protein NT-Pro-B Natriuret Pep Total Protein Albumin Arterial Blood Glucose Urine WBC (Auto) Urine Creatinine 12/10/19 12/10/19 12/11/19 18:44 21:20 00:08 WBC 14.9 H RBC 3.36 L Hgb 9.6 L Hct 30.5 L MCHC RDW 15.4 H MCV MCH Lymph % (Auto) Gordon % (Auto) Gordon # Eos # Lymph # (Auto) Gordon # (Auto) Eos # (Auto) Seg Neutrophils % Seg Neuts % (Manual) Baso # (Auto) Lymphocytes % (Manual) Monocytes % (Manual) Eosinophils % (Manual) Basophils % (Manual) Seg Neutrophils # Seg Neutrophils # Man Lymphocytes # (Manual) Monocytes # (Manual) Eosinophils # (Manual) Nucleated RBC % Basophils # (Manual) PT INR APTT Heparin Anti-Xa Level ABG pH POC ABG pO2 ABG pO2 ABG HCO3 ABG O2 Saturation ABG Base Excess POC ABG pCO2 ABG Hemoglobin ABG Oxyhemoglobin ABG Chloride ABG Glucose Oxyhemoglobin Sodium Potassium Chloride Carbon Dioxide BUN Creatinine Glucose POC Glucose 119 H 134 H Lactic Acid Calcium Phosphorus Magnesium AST ALT Lactate Dehydrogenase Total Bilirubin Direct Bilirubin CK-MB (CK-2) C-Reactive Protein NT-Pro-B Natriuret Pep Total Protein Albumin Arterial Blood Glucose Urine WBC (Auto) Urine Creatinine 12/11/19 12/11/19 12/11/19 03:54 07:28 08:36 WBC 11.9 H RBC 3.25 L Hgb 9.6 L Hct 29.2 L MCHC RDW 15.7 H MCV MCH Lymph % (Auto) Gordon % (Auto) Gordon # Eos # Lymph # (Auto) Gordon # (Auto) Eos # (Auto) Seg Neutrophils % Seg Neuts % (Manual) Baso # (Auto) Lymphocytes % (Manual) Monocytes % (Manual) Eosinophils % (Manual) Basophils % (Manual) Seg Neutrophils # Seg Neutrophils # Man Lymphocytes # (Manual) Monocytes # (Manual) Eosinophils # (Manual) Nucleated RBC % Basophils # (Manual) PT INR APTT Heparin Anti-Xa Level 0.10 L 0.16 L ABG pH POC ABG pO2 ABG pO2 ABG HCO3 ABG O2 Saturation ABG Base Excess POC ABG pCO2 ABG Hemoglobin ABG Oxyhemoglobin ABG Chloride ABG Glucose Oxyhemoglobin Sodium Potassium Chloride Carbon Dioxide BUN Creatinine Glucose POC Glucose Lactic Acid Calcium Phosphorus Magnesium AST ALT Lactate Dehydrogenase Total Bilirubin Direct Bilirubin CK-MB (CK-2) C-Reactive Protein NT-Pro-B Natriuret Pep Total Protein Albumin Arterial Blood Glucose Urine WBC (Auto) Urine Creatinine 12/11/19 12/11/19 12/11/19 08:36 11:45 17:15 WBC RBC Hgb Hct MCHC RDW MCV MCH Lymph % (Auto) Gordon % (Auto) Gordon # Eos # Lymph # (Auto) Gordon # (Auto) Eos # (Auto) Seg Neutrophils % Seg Neuts % (Manual) Baso # (Auto) Lymphocytes % (Manual) Monocytes % (Manual) Eosinophils % (Manual) Basophils % (Manual) Seg Neutrophils # Seg Neutrophils # Man Lymphocytes # (Manual) Monocytes # (Manual) Eosinophils # (Manual) Nucleated RBC % Basophils # (Manual) PT INR APTT Heparin Anti-Xa Level ABG pH POC ABG pO2 ABG pO2 ABG HCO3 ABG O2 Saturation ABG Base Excess POC ABG pCO2 ABG Hemoglobin ABG Oxyhemoglobin ABG Chloride ABG Glucose Oxyhemoglobin Sodium Potassium Chloride Carbon Dioxide BUN Creatinine 0.5 L Glucose 128 H POC Glucose 136 H 109 H Lactic Acid Calcium Phosphorus Magnesium AST ALT Lactate Dehydrogenase Total Bilirubin Direct Bilirubin CK-MB (CK-2) C-Reactive Protein NT-Pro-B Natriuret Pep Total Protein Albumin Arterial Blood Glucose Urine WBC (Auto) Urine Creatinine 12/12/19 12/12/19 12/12/19 00:03 05:53 05:53 WBC RBC Hgb 8.8 L Hct 27.6 L MCHC RDW MCV MCH Lymph % (Auto) Gordon % (Auto) Gordon # Eos # Lymph # (Auto) Gordon # (Auto) Eos # (Auto) Seg Neutrophils % Seg Neuts % (Manual) Baso # (Auto) Lymphocytes % (Manual) Monocytes % (Manual) Eosinophils % (Manual) Basophils % (Manual) Seg Neutrophils # Seg Neutrophils # Man Lymphocytes # (Manual) Monocytes # (Manual) Eosinophils # (Manual) Nucleated RBC % Basophils # (Manual) PT INR APTT Heparin Anti-Xa Level 0.22 L ABG pH POC ABG pO2 ABG pO2 ABG HCO3 ABG O2 Saturation ABG Base Excess POC ABG pCO2 ABG Hemoglobin ABG Oxyhemoglobin ABG Chloride ABG Glucose Oxyhemoglobin Sodium Potassium Chloride Carbon Dioxide BUN Creatinine Glucose POC Glucose 116 H Lactic Acid Calcium Phosphorus Magnesium AST ALT Lactate Dehydrogenase Total Bilirubin Direct Bilirubin CK-MB (CK-2) C-Reactive Protein NT-Pro-B Natriuret Pep Total Protein Albumin Arterial Blood Glucose Urine WBC (Auto) Urine Creatinine 12/12/19 12/12/19 12/12/19 09:38 12:18 17:44 WBC RBC Hgb Hct MCHC RDW MCV MCH Lymph % (Auto) Gordon % (Auto) Gordon # Eos # Lymph # (Auto) Gordon # (Auto) Eos # (Auto) Seg Neutrophils % Seg Neuts % (Manual) Baso # (Auto) Lymphocytes % (Manual) Monocytes % (Manual) Eosinophils % (Manual) Basophils % (Manual) Seg Neutrophils # Seg Neutrophils # Man Lymphocytes # (Manual) Monocytes # (Manual) Eosinophils # (Manual) Nucleated RBC % Basophils # (Manual) PT INR APTT Heparin Anti-Xa Level ABG pH POC ABG pO2 ABG pO2 ABG HCO3 ABG O2 Saturation ABG Base Excess POC ABG pCO2 ABG Hemoglobin ABG Oxyhemoglobin ABG Chloride ABG Glucose Oxyhemoglobin Sodium Potassium Chloride Carbon Dioxide BUN Creatinine Glucose POC Glucose 115 H 146 H 146 H Lactic Acid Calcium Phosphorus Magnesium AST ALT Lactate Dehydrogenase Total Bilirubin Direct Bilirubin CK-MB (CK-2) C-Reactive Protein NT-Pro-B Natriuret Pep Total Protein Albumin Arterial Blood Glucose Urine WBC (Auto) Urine Creatinine 12/12/19 12/13/19 12/13/19 23:33 05:32 05:32 WBC 13.1 H RBC 3.27 L Hgb 9.5 L Hct 29.3 L MCHC RDW 15.6 H MCV MCH Lymph % (Auto) Gordon % (Auto) Gordon # Eos # Lymph # (Auto) Gordon # (Auto) Eos # (Auto) Seg Neutrophils % Seg Neuts % (Manual) 74.0 H Baso # (Auto) Lymphocytes % (Manual) 8.0 L Monocytes % (Manual) 9.0 H Eosinophils % (Manual) 5.0 H Basophils % (Manual) Seg Neutrophils # Seg Neutrophils # Man 9.7 H Lymphocytes # (Manual) 1.0 L Monocytes # (Manual) 1.2 H Eosinophils # (Manual) 0.7 H Nucleated RBC % Basophils # (Manual) PT INR APTT Heparin Anti-Xa Level 0.20 L ABG pH POC ABG pO2 ABG pO2 ABG HCO3 ABG O2 Saturation ABG Base Excess POC ABG pCO2 ABG Hemoglobin ABG Oxyhemoglobin ABG Chloride ABG Glucose Oxyhemoglobin Sodium Potassium Chloride Carbon Dioxide BUN Creatinine Glucose POC Glucose 126 H Lactic Acid Calcium Phosphorus Magnesium AST ALT Lactate Dehydrogenase Total Bilirubin Direct Bilirubin CK-MB (CK-2) C-Reactive Protein NT-Pro-B Natriuret Pep Total Protein Albumin Arterial Blood Glucose Urine WBC (Auto) Urine Creatinine 12/13/19 12/13/19 12/13/19 05:32 05:46 11:57 WBC RBC Hgb Hct MCHC RDW MCV MCH Lymph % (Auto) Gordon % (Auto) Gordon # Eos # Lymph # (Auto) Gordon # (Auto) Eos # (Auto) Seg Neutrophils % Seg Neuts % (Manual) Baso # (Auto) Lymphocytes % (Manual) Monocytes % (Manual) Eosinophils % (Manual) Basophils % (Manual) Seg Neutrophils # Seg Neutrophils # Man Lymphocytes # (Manual) Monocytes # (Manual) Eosinophils # (Manual) Nucleated RBC % Basophils # (Manual) PT INR APTT Heparin Anti-Xa Level ABG pH POC ABG pO2 ABG pO2 ABG HCO3 ABG O2 Saturation ABG Base Excess POC ABG pCO2 ABG Hemoglobin ABG Oxyhemoglobin ABG Chloride ABG Glucose Oxyhemoglobin Sodium Potassium Chloride Carbon Dioxide 31 H BUN Creatinine 0.6 L Glucose 114 H POC Glucose 118 H 133 H Lactic Acid Calcium Phosphorus Magnesium AST ALT Lactate Dehydrogenase Total Bilirubin Direct Bilirubin CK-MB (CK-2) C-Reactive Protein NT-Pro-B Natriuret Pep Total Protein Albumin Arterial Blood Glucose Urine WBC (Auto) Urine Creatinine 12/13/19 12/13/19 12/14/19 17:44 23:46 05:32 WBC RBC Hgb Hct MCHC RDW MCV MCH Lymph % (Auto) Gordon % (Auto) Gordon # Eos # Lymph # (Auto) Gordon # (Auto) Eos # (Auto) Seg Neutrophils % Seg Neuts % (Manual) Baso # (Auto) Lymphocytes % (Manual) Monocytes % (Manual) Eosinophils % (Manual) Basophils % (Manual) Seg Neutrophils # Seg Neutrophils # Man Lymphocytes # (Manual) Monocytes # (Manual) Eosinophils # (Manual) Nucleated RBC % Basophils # (Manual) PT INR APTT Heparin Anti-Xa Level ABG pH POC ABG pO2 ABG pO2 ABG HCO3 ABG O2 Saturation ABG Base Excess POC ABG pCO2 ABG Hemoglobin ABG Oxyhemoglobin ABG Chloride ABG Glucose Oxyhemoglobin Sodium Potassium Chloride Carbon Dioxide BUN Creatinine Glucose POC Glucose 161 H 126 H 139 H Lactic Acid Calcium Phosphorus Magnesium AST ALT Lactate Dehydrogenase Total Bilirubin Direct Bilirubin CK-MB (CK-2) C-Reactive Protein NT-Pro-B Natriuret Pep Total Protein Albumin Arterial Blood Glucose Urine WBC (Auto) Urine Creatinine 12/14/19 12/14/19 12/14/19 06:03 06:03 09:37 WBC RBC Hgb 9.6 L Hct 30.4 L MCHC RDW MCV MCH Lymph % (Auto) Gordon % (Auto) Gordon # Eos # Lymph # (Auto) Gordon # (Auto) Eos # (Auto) Seg Neutrophils % Seg Neuts % (Manual) Baso # (Auto) Lymphocytes % (Manual) Monocytes % (Manual) Eosinophils % (Manual) Basophils % (Manual) Seg Neutrophils # Seg Neutrophils # Man Lymphocytes # (Manual) Monocytes # (Manual) Eosinophils # (Manual) Nucleated RBC % Basophils # (Manual) PT INR APTT Heparin Anti-Xa Level 0.24 L ABG pH POC ABG pO2 ABG pO2 ABG HCO3 ABG O2 Saturation ABG Base Excess POC ABG pCO2 ABG Hemoglobin ABG Oxyhemoglobin ABG Chloride ABG Glucose Oxyhemoglobin Sodium Potassium Chloride Carbon Dioxide BUN Creatinine 0.6 L Glucose 162 H POC Glucose Lactic Acid Calcium Phosphorus Magnesium AST 71 H ALT 118 H Lactate Dehydrogenase Total Bilirubin Direct Bilirubin CK-MB (CK-2) C-Reactive Protein NT-Pro-B Natriuret Pep Total Protein 6.2 L Albumin 2.3 L Arterial Blood Glucose Urine WBC (Auto) Urine Creatinine 12/14/19 12/14/19 12/15/19 12:06 18:18 00:19 WBC RBC Hgb Hct MCHC RDW MCV MCH Lymph % (Auto) Gordon % (Auto) Gordon # Eos # Lymph # (Auto) Gordon # (Auto) Eos # (Auto) Seg Neutrophils % Seg Neuts % (Manual) Baso # (Auto) Lymphocytes % (Manual) Monocytes % (Manual) Eosinophils % (Manual) Basophils % (Manual) Seg Neutrophils # Seg Neutrophils # Man Lymphocytes # (Manual) Monocytes # (Manual) Eosinophils # (Manual) Nucleated RBC % Basophils # (Manual) PT INR APTT Heparin Anti-Xa Level ABG pH POC ABG pO2 ABG pO2 ABG HCO3 ABG O2 Saturation ABG Base Excess POC ABG pCO2 ABG Hemoglobin ABG Oxyhemoglobin ABG Chloride ABG Glucose Oxyhemoglobin Sodium Potassium Chloride Carbon Dioxide BUN Creatinine Glucose POC Glucose 147 H 166 H 123 H Lactic Acid Calcium Phosphorus Magnesium AST ALT Lactate Dehydrogenase Total Bilirubin Direct Bilirubin CK-MB (CK-2) C-Reactive Protein NT-Pro-B Natriuret Pep Total Protein Albumin Arterial Blood Glucose Urine WBC (Auto) Urine Creatinine 12/15/19 12/15/1912/14/20 05:28 05:29 05:29 WBC 14.9 H RBC 3.19 L Hgb 9.1 L Hct 28.7 L MCHC RDW 16.0 H MCV MCH Lymph % (Auto) Gordon % (Auto) Gordon # Eos # Lymph # (Auto) Gordon # (Auto) Eos # (Auto) Seg Neutrophils % Seg Neuts % (Manual) Baso # (Auto) Lymphocytes % (Manual) Monocytes % (Manual) Eosinophils % (Manual) Basophils % (Manual) Seg Neutrophils # Seg Neutrophils # Man Lymphocytes # (Manual) Monocytes # (Manual) Eosinophils # (Manual) Nucleated RBC % Basophils # (Manual) PT INR APTT Heparin Anti-Xa Level 0.19 L ABG pH POC ABG pO2 ABG pO2 ABG HCO3 ABG O2 Saturation ABG Base Excess POC ABG pCO2 ABG Hemoglobin ABG Oxyhemoglobin ABG Chloride ABG Glucose Oxyhemoglobin Sodium Potassium Chloride Carbon Dioxide BUN Creatinine 0.6 L Glucose 110 H POC Glucose Lactic Acid Calcium Phosphorus Magnesium AST ALT Lactate Dehydrogenase Total Bilirubin Direct Bilirubin CK-MB (CK-2) C-Reactive Protein NT-Pro-B Natriuret Pep Total Protein Albumin Arterial Blood Glucose Urine WBC (Auto) Urine Creatinine 12/15/19 12/15/19 12/15/19 05:53 11:50 17:26 WBC RBC Hgb Hct MCHC RDW MCV MCH Lymph % (Auto) Gordon % (Auto) Gordon # Eos # Lymph # (Auto) Gordon # (Auto) Eos # (Auto) Seg Neutrophils % Seg Neuts % (Manual) Baso # (Auto) Lymphocytes % (Manual) Monocytes % (Manual) Eosinophils % (Manual) Basophils % (Manual) Seg Neutrophils # Seg Neutrophils # Man Lymphocytes # (Manual) Monocytes # (Manual) Eosinophils # (Manual) Nucleated RBC % Basophils # (Manual) PT INR APTT Heparin Anti-Xa Level ABG pH POC ABG pO2 ABG pO2 ABG HCO3 ABG O2 Saturation ABG Base Excess POC ABG pCO2 ABG Hemoglobin ABG Oxyhemoglobin ABG Chloride ABG Glucose Oxyhemoglobin Sodium Potassium Chloride Carbon Dioxide BUN Creatinine Glucose POC Glucose 119 H 132 H 128 H Lactic Acid Calcium Phosphorus Magnesium AST ALT Lactate Dehydrogenase Total Bilirubin Direct Bilirubin CK-MB (CK-2) C-Reactive Protein NT-Pro-B Natriuret Pep Total Protein Albumin Arterial Blood Glucose Urine WBC (Auto) Urine Creatinine 09/22/20 09/23/20 09/23/20 23:11 05:30 05:46 WBC RBC Hgb 8.8 L Hct 27.9 L MCHC RDW MCV MCH Lymph % (Auto) Gordon % (Auto) Gordon # Eos # Lymph # (Auto) Gordon # (Auto) Eos # (Auto) Seg Neutrophils % Seg Neuts % (Manual) Baso # (Auto) Lymphocytes % (Manual) Monocytes % (Manual) Eosinophils % (Manual) Basophils % (Manual) Seg Neutrophils # Seg Neutrophils # Man Lymphocytes # (Manual) Monocytes # (Manual) Eosinophils # (Manual) Nucleated RBC % Basophils # (Manual) PT INR APTT Heparin Anti-Xa Level ABG pH POC ABG pO2 ABG pO2 ABG HCO3 ABG O2 Saturation ABG Base Excess POC ABG pCO2 ABG Hemoglobin ABG Oxyhemoglobin ABG Chloride ABG Glucose Oxyhemoglobin Sodium Potassium Chloride Carbon Dioxide BUN Creatinine Glucose POC Glucose 150 H 134 H Lactic Acid Calcium Phosphorus Magnesium AST ALT Lactate Dehydrogenase Total Bilirubin Direct Bilirubin CK-MB (CK-2) C-Reactive Protein NT-Pro-B Natriuret Pep Total Protein Albumin Arterial Blood Glucose Urine WBC (Auto) Urine Creatinine 12/16/19 12/16/19 12/16/19 05:46 05:46 11:44 WBC RBC Hgb Hct MCHC RDW MCV MCH Lymph % (Auto) Gordon % (Auto) Gordon # Eos # Lymph # (Auto) Gordon # (Auto) Eos # (Auto) Seg Neutrophils % Seg Neuts % (Manual) Baso # (Auto) Lymphocytes % (Manual) Monocytes % (Manual) Eosinophils % (Manual) Basophils % (Manual) Seg Neutrophils # Seg Neutrophils # Man Lymphocytes # (Manual) Monocytes # (Manual) Eosinophils # (Manual) Nucleated RBC % Basophils # (Manual) PT INR APTT Heparin Anti-Xa Level 0.20 L ABG pH POC ABG pO2 ABG pO2 ABG HCO3 ABG O2 Saturation ABG Base Excess POC ABG pCO2 ABG Hemoglobin ABG Oxyhemoglobin ABG Chloride ABG Glucose Oxyhemoglobin Sodium Potassium Chloride Carbon Dioxide 31 H BUN Creatinine 0.5 L Glucose 147 H POC Glucose 164 H Lactic Acid Calcium Phosphorus Magnesium AST ALT Lactate Dehydrogenase Total Bilirubin Direct Bilirubin CK-MB (CK-2) C-Reactive Protein NT-Pro-B Natriuret Pep Total Protein Albumin Arterial Blood Glucose Urine WBC (Auto) Urine Creatinine 12/16/19 12/16/19 12/17/19 17:17 23:49 05:30 WBC 13.9 H RBC 3.27 L Hgb 9.4 L Hct 29.2 L MCHC RDW 16.0 H MCV MCH Lymph % (Auto) Gordon % (Auto) 8.8 H Gordon # Eos # Lymph # (Auto) Gordon # (Auto) 1.2 H Eos # (Auto) 0.5 H Seg Neutrophils % 70.5 H Seg Neuts % (Manual) Baso # (Auto) 0.2 H Lymphocytes % (Manual) Monocytes % (Manual) Eosinophils % (Manual) Basophils % (Manual) Seg Neutrophils # 9.8 H Seg Neutrophils # Man Lymphocytes # (Manual) Monocytes # (Manual) Eosinophils # (Manual) Nucleated RBC % Basophils # (Manual) PT INR APTT Heparin Anti-Xa Level ABG pH POC ABG pO2 ABG pO2 ABG HCO3 ABG O2 Saturation ABG Base Excess POC ABG pCO2 ABG Hemoglobin ABG Oxyhemoglobin ABG Chloride ABG Glucose Oxyhemoglobin Sodium Potassium Chloride Carbon Dioxide BUN Creatinine Glucose POC Glucose 162 H 144 H Lactic Acid Calcium Phosphorus Magnesium AST ALT Lactate Dehydrogenase Total Bilirubin Direct Bilirubin CK-MB (CK-2) C-Reactive Protein NT-Pro-B Natriuret Pep Total Protein Albumin Arterial Blood Glucose Urine WBC (Auto) Urine Creatinine 12/17/19 12/17/19 12/17/19 05:30 06:06 11:50 WBC RBC Hgb Hct MCHC RDW MCV MCH Lymph % (Auto) Gordon % (Auto) Gordon # Eos # Lymph # (Auto) Gordon # (Auto) Eos # (Auto) Seg Neutrophils % Seg Neuts % (Manual) Baso # (Auto) Lymphocytes % (Manual) Monocytes % (Manual) Eosinophils % (Manual) Basophils % (Manual) Seg Neutrophils # Seg Neutrophils # Man Lymphocytes # (Manual) Monocytes # (Manual) Eosinophils # (Manual) Nucleated RBC % Basophils # (Manual) PT INR APTT Heparin Anti-Xa Level ABG pH POC ABG pO2 ABG pO2 ABG HCO3 ABG O2 Saturation ABG Base Excess POC ABG pCO2 ABG Hemoglobin ABG Oxyhemoglobin ABG Chloride ABG Glucose Oxyhemoglobin Sodium Potassium Chloride 97.4 L Carbon Dioxide 32 H BUN Creatinine 0.5 L Glucose 135 H POC Glucose 151 H 140 H Lactic Acid Calcium Phosphorus Magnesium AST ALT Lactate Dehydrogenase Total Bilirubin Direct Bilirubin CK-MB (CK-2) C-Reactive Protein NT-Pro-B Natriuret Pep Total Protein Albumin Arterial Blood Glucose Urine WBC (Auto) Urine Creatinine 12/17/19 12/17/19 12/18/19 17:50 23:46 05:17 WBC RBC Hgb 8.8 L Hct 28.0 L MCHC RDW MCV MCH Lymph % (Auto) Gordon % (Auto) Gordon # Eos # Lymph # (Auto) Gordon # (Auto) Eos # (Auto) Seg Neutrophils % Seg Neuts % (Manual) Baso # (Auto) Lymphocytes % (Manual) Monocytes % (Manual) Eosinophils % (Manual) Basophils % (Manual) Seg Neutrophils # Seg Neutrophils # Man Lymphocytes # (Manual) Monocytes # (Manual) Eosinophils # (Manual) Nucleated RBC % Basophils # (Manual) PT INR APTT Heparin Anti-Xa Level ABG pH POC ABG pO2 ABG pO2 ABG HCO3 ABG O2 Saturation ABG Base Excess POC ABG pCO2 ABG Hemoglobin ABG Oxyhemoglobin ABG Chloride ABG Glucose Oxyhemoglobin Sodium Potassium Chloride Carbon Dioxide BUN Creatinine Glucose POC Glucose 158 H 150 H Lactic Acid Calcium Phosphorus Magnesium AST ALT Lactate Dehydrogenase Total Bilirubin Direct Bilirubin CK-MB (CK-2) C-Reactive Protein NT-Pro-B Natriuret Pep Total Protein Albumin Arterial Blood Glucose Urine WBC (Auto) Urine Creatinine 12/18/19 12/18/19 12/18/19 05:17 05:49 11:12 WBC RBC Hgb Hct MCHC RDW MCV MCH Lymph % (Auto) Gordon % (Auto) Gordon # Eos # Lymph # (Auto) Gordon # (Auto) Eos # (Auto) Seg Neutrophils % Seg Neuts % (Manual) Baso # (Auto) Lymphocytes % (Manual) Monocytes % (Manual) Eosinophils % (Manual) Basophils % (Manual) Seg Neutrophils # Seg Neutrophils # Man Lymphocytes # (Manual) Monocytes # (Manual) Eosinophils # (Manual) Nucleated RBC % Basophils # (Manual) PT INR APTT Heparin Anti-Xa Level 0.16 L ABG pH POC ABG pO2 ABG pO2 ABG HCO3 ABG O2 Saturation ABG Base Excess POC ABG pCO2 ABG Hemoglobin ABG Oxyhemoglobin ABG Chloride ABG Glucose Oxyhemoglobin Sodium Potassium Chloride Carbon Dioxide BUN Creatinine Glucose POC Glucose 127 H 191 H Lactic Acid Calcium Phosphorus Magnesium AST ALT Lactate Dehydrogenase Total Bilirubin Direct Bilirubin CK-MB (CK-2) C-Reactive Protein NT-Pro-B Natriuret Pep Total Protein Albumin Arterial Blood Glucose Urine WBC (Auto) Urine Creatinine 12/18/19 12/18/19 12/19/19 17:03 20:16 00:08 WBC RBC Hgb Hct MCHC RDW MCV MCH Lymph % (Auto) Gordon % (Auto) Gordon # Eos # Lymph # (Auto) Gordon # (Auto) Eos # (Auto) Seg Neutrophils % Seg Neuts % (Manual) Baso # (Auto) Lymphocytes % (Manual) Monocytes % (Manual) Eosinophils % (Manual) Basophils % (Manual) Seg Neutrophils # Seg Neutrophils # Man Lymphocytes # (Manual) Monocytes # (Manual) Eosinophils # (Manual) Nucleated RBC % Basophils # (Manual) PT INR APTT Heparin Anti-Xa Level ABG pH POC ABG pO2 ABG pO2 ABG HCO3 ABG O2 Saturation ABG Base Excess POC ABG pCO2 ABG Hemoglobin ABG Oxyhemoglobin ABG Chloride ABG Glucose Oxyhemoglobin Sodium Potassium Chloride Carbon Dioxide BUN Creatinine Glucose POC Glucose 133 H 128 H 129 H Lactic Acid Calcium Phosphorus Magnesium AST ALT Lactate Dehydrogenase Total Bilirubin Direct Bilirubin CK-MB (CK-2) C-Reactive Protein NT-Pro-B Natriuret Pep Total Protein Albumin Arterial Blood Glucose Urine WBC (Auto) Urine Creatinine 12/19/19 12/19/19 12/19/19 04:45 04:45 05:35 WBC RBC Hgb Hct MCHC RDW MCV MCH Lymph % (Auto) Gordon % (Auto) Gordon # Eos # Lymph # (Auto) Gordon # (Auto) Eos # (Auto) Seg Neutrophils % Seg Neuts % (Manual) Baso # (Auto) Lymphocytes % (Manual) Monocytes % (Manual) Eosinophils % (Manual) Basophils % (Manual) Seg Neutrophils # Seg Neutrophils # Man Lymphocytes # (Manual) Monocytes # (Manual) Eosinophils # (Manual) Nucleated RBC % Basophils # (Manual) PT INR APTT Heparin Anti-Xa Level 0.17 L ABG pH POC ABG pO2 ABG pO2 ABG HCO3 ABG O2 Saturation ABG Base Excess POC ABG pCO2 ABG Hemoglobin ABG Oxyhemoglobin ABG Chloride ABG Glucose Oxyhemoglobin Sodium Potassium Chloride Carbon Dioxide BUN Creatinine Glucose POC Glucose 120 H Lactic Acid Calcium Phosphorus Magnesium AST ALT Lactate Dehydrogenase 228 H Total Bilirubin Direct Bilirubin CK-MB (CK-2) C-Reactive Protein NT-Pro-B Natriuret Pep Total Protein Albumin Arterial Blood Glucose Urine WBC (Auto) Urine Creatinine 12/19/19 12/19/19 12/19/19 09:20 11:32 11:32 WBC 14.6 H RBC 3.08 L Hgb 9.0 L Hct 26.8 L MCHC RDW 15.9 H MCV MCH Lymph % (Auto) Gordon % (Auto) Gordon # Eos # Lymph # (Auto) Gordon # (Auto) Eos # (Auto) Seg Neutrophils % Seg Neuts % (Manual) 82.0 H Baso # (Auto) Lymphocytes % (Manual) 10.0 L Monocytes % (Manual) Eosinophils % (Manual) Basophils % (Manual) Seg Neutrophils # Seg Neutrophils # Man 12.0 H Lymphocytes # (Manual) Monocytes # (Manual) 0.9 H Eosinophils # (Manual) Nucleated RBC % 1.0 H Basophils # (Manual) PT INR APTT Heparin Anti-Xa Level ABG pH 7.451 H POC ABG pO2 ABG pO2 62.6 L ABG HCO3 33.2 H ABG O2 Saturation 93.8 L ABG Base Excess 8.3 H POC ABG pCO2 ABG Hemoglobin 8.3 L ABG Oxyhemoglobin ABG Chloride ABG Glucose Oxyhemoglobin 91.9 L Sodium Potassium Chloride 95.0 L Carbon Dioxide 33 H BUN 22 H Creatinine 0.6 L Glucose 150 H POC Glucose Lactic Acid Calcium Phosphorus Magnesium AST ALT Lactate Dehydrogenase Total Bilirubin Direct Bilirubin CK-MB (CK-2) C-Reactive Protein NT-Pro-B Natriuret Pep Total Protein 6.2 L Albumin 2.4 L Arterial Blood Glucose Urine WBC (Auto) Urine Creatinine 12/19/19 12/19/19 12/20/19 11:56 18:17 00:09 WBC RBC Hgb Hct MCHC RDW MCV MCH Lymph % (Auto) Gordon % (Auto) Gordon # Eos # Lymph # (Auto) Gordon # (Auto) Eos # (Auto) Seg Neutrophils % Seg Neuts % (Manual) Baso # (Auto) Lymphocytes % (Manual) Monocytes % (Manual) Eosinophils % (Manual) Basophils % (Manual) Seg Neutrophils # Seg Neutrophils # Man Lymphocytes # (Manual) Monocytes # (Manual) Eosinophils # (Manual) Nucleated RBC % Basophils # (Manual) PT INR APTT Heparin Anti-Xa Level ABG pH POC ABG pO2 ABG pO2 ABG HCO3 ABG O2 Saturation ABG Base Excess POC ABG pCO2 ABG Hemoglobin ABG Oxyhemoglobin ABG Chloride ABG Glucose Oxyhemoglobin Sodium Potassium Chloride Carbon Dioxide BUN Creatinine Glucose POC Glucose 156 H 156 H 155 H Lactic Acid Calcium Phosphorus Magnesium AST ALT Lactate Dehydrogenase Total Bilirubin Direct Bilirubin CK-MB (CK-2) C-Reactive Protein NT-Pro-B Natriuret Pep Total Protein Albumin Arterial Blood Glucose Urine WBC (Auto) Urine Creatinine 12/20/19 12/20/19 12/20/19 05:26 06:02 18:17 WBC RBC Hgb Hct MCHC RDW MCV MCH Lymph % (Auto) Gordon % (Auto) Gordon # Eos # Lymph # (Auto) Gordon # (Auto) Eos # (Auto) Seg Neutrophils % Seg Neuts % (Manual) Baso # (Auto) Lymphocytes % (Manual) Monocytes % (Manual) Eosinophils % (Manual) Basophils % (Manual) Seg Neutrophils # Seg Neutrophils # Man Lymphocytes # (Manual) Monocytes # (Manual) Eosinophils # (Manual) Nucleated RBC % Basophils # (Manual) PT INR APTT Heparin Anti-Xa Level 0.19 L ABG pH POC ABG pO2 ABG pO2 ABG HCO3 ABG O2 Saturation ABG Base Excess POC ABG pCO2 ABG Hemoglobin ABG Oxyhemoglobin ABG Chloride ABG Glucose Oxyhemoglobin Sodium Potassium Chloride Carbon Dioxide BUN Creatinine Glucose POC Glucose 137 H 128 H Lactic Acid Calcium Phosphorus Magnesium AST ALT Lactate Dehydrogenase Total Bilirubin Direct Bilirubin CK-MB (CK-2) C-Reactive Protein NT-Pro-B Natriuret Pep Total Protein Albumin Arterial Blood Glucose Urine WBC (Auto) Urine Creatinine 12/20/19 12/21/19 12/21/19 23:34 05:31 05:31 WBC 12.7 H RBC 3.09 L Hgb 8.9 L Hct 27.4 L MCHC RDW 15.8 H MCV MCH Lymph % (Auto) 12.1 L Gordon % (Auto) 7.8 H Gordon # Eos # Lymph # (Auto) Gordon # (Auto) 1.0 H Eos # (Auto) Seg Neutrophils % 77.1 H Seg Neuts % (Manual) Baso # (Auto) Lymphocytes % (Manual) Monocytes % (Manual) Eosinophils % (Manual) Basophils % (Manual) Seg Neutrophils # 9.8 H Seg Neutrophils # Man Lymphocytes # (Manual) Monocytes # (Manual) Eosinophils # (Manual) Nucleated RBC % Basophils # (Manual) PT INR APTT Heparin Anti-Xa Level ABG pH POC ABG pO2 ABG pO2 ABG HCO3 ABG O2 Saturation ABG Base Excess POC ABG pCO2 ABG Hemoglobin ABG Oxyhemoglobin ABG Chloride ABG Glucose Oxyhemoglobin Sodium Potassium Chloride 96.9 L Carbon Dioxide 37 H BUN 27 H Creatinine 0.7 L Glucose 140 H POC Glucose 145 H Lactic Acid Calcium Phosphorus Magnesium AST ALT Lactate Dehydrogenase Total Bilirubin Direct Bilirubin CK-MB (CK-2) C-Reactive Protein NT-Pro-B Natriuret Pep Total Protein Albumin Arterial Blood Glucose Urine WBC (Auto) Urine Creatinine 12/21/19 12/21/19 12/21/19 05:38 10:13 11:51 WBC RBC Hgb Hct MCHC RDW MCV MCH Lymph % (Auto) Gordon % (Auto) Gordon # Eos # Lymph # (Auto) Gordon # (Auto) Eos # (Auto) Seg Neutrophils % Seg Neuts % (Manual) Baso # (Auto) Lymphocytes % (Manual) Monocytes % (Manual) Eosinophils % (Manual) Basophils % (Manual) Seg Neutrophils # Seg Neutrophils # Man Lymphocytes # (Manual) Monocytes # (Manual) Eosinophils # (Manual) Nucleated RBC % Basophils # (Manual) PT INR APTT 23.9 L Heparin Anti-Xa Level < 0.10 L ABG pH POC ABG pO2 ABG pO2 ABG HCO3 ABG O2 Saturation ABG Base Excess POC ABG pCO2 ABG Hemoglobin ABG Oxyhemoglobin ABG Chloride ABG Glucose Oxyhemoglobin Sodium Potassium Chloride Carbon Dioxide BUN Creatinine Glucose POC Glucose 151 H 145 H Lactic Acid Calcium Phosphorus Magnesium AST ALT Lactate Dehydrogenase Total Bilirubin Direct Bilirubin CK-MB (CK-2) C-Reactive Protein NT-Pro-B Natriuret Pep Total Protein Albumin Arterial Blood Glucose Urine WBC (Auto) Urine Creatinine 12/21/19 12/22/19 12/22/19 17:16 00:01 01:33 WBC RBC Hgb Hct MCHC RDW MCV MCH Lymph % (Auto) Gordon % (Auto) Gordon # Eos # Lymph # (Auto) Gordon # (Auto) Eos # (Auto) Seg Neutrophils % Seg Neuts % (Manual) Baso # (Auto) Lymphocytes % (Manual) Monocytes % (Manual) Eosinophils % (Manual) Basophils % (Manual) Seg Neutrophils # Seg Neutrophils # Man Lymphocytes # (Manual) Monocytes # (Manual) Eosinophils # (Manual) Nucleated RBC % Basophils # (Manual) PT INR APTT Heparin Anti-Xa Level 0.10 L ABG pH POC ABG pO2 ABG pO2 ABG HCO3 ABG O2 Saturation ABG Base Excess POC ABG pCO2 ABG Hemoglobin ABG Oxyhemoglobin ABG Chloride ABG Glucose Oxyhemoglobin Sodium Potassium Chloride Carbon Dioxide BUN Creatinine Glucose POC Glucose 167 H 179 H Lactic Acid Calcium Phosphorus Magnesium AST ALT Lactate Dehydrogenase Total Bilirubin Direct Bilirubin CK-MB (CK-2) C-Reactive Protein NT-Pro-B Natriuret Pep Total Protein Albumin Arterial Blood Glucose Urine WBC (Auto) Urine Creatinine 12/22/19 12/22/19 12/22/19 03:22 05:10 05:10 WBC 13.8 H RBC 3.20 L Hgb 8.9 L Hct 28.1 L MCHC RDW 15.9 H MCV MCH Lymph % (Auto) Gordon % (Auto) Gordon # Eos # Lymph # (Auto) Gordon # (Auto) Eos # (Auto) Seg Neutrophils % Seg Neuts % (Manual) Baso # (Auto) Lymphocytes % (Manual) Monocytes % (Manual) Eosinophils % (Manual) Basophils % (Manual) Seg Neutrophils # Seg Neutrophils # Man Lymphocytes # (Manual) Monocytes # (Manual) Eosinophils # (Manual) Nucleated RBC % Basophils # (Manual) PT INR APTT Heparin Anti-Xa Level ABG pH POC ABG pO2 52.3 L ABG pO2 ABG HCO3 ABG O2 Saturation ABG Base Excess POC ABG pCO2 52.9 H ABG Hemoglobin 10.7 L ABG Oxyhemoglobin 84 L ABG Chloride ABG Glucose Oxyhemoglobin Sodium Potassium Chloride 96.6 L Carbon Dioxide BUN 25 H Creatinine 0.7 L Glucose 129 H POC Glucose Lactic Acid Calcium Phosphorus Magnesium AST ALT Lactate Dehydrogenase Total Bilirubin Direct Bilirubin CK-MB (CK-2) C-Reactive Protein NT-Pro-B Natriuret Pep Total Protein Albumin Arterial Blood Glucose Urine WBC (Auto) Urine Creatinine 12/22/19 12/22/19 12/22/19 05:18 12:32 12:43 WBC RBC Hgb Hct MCHC RDW MCV MCH Lymph % (Auto) Gordon % (Auto) Gordon # Eos # Lymph # (Auto) Gordon # (Auto) Eos # (Auto) Seg Neutrophils % Seg Neuts % (Manual) Baso # (Auto) Lymphocytes % (Manual) Monocytes % (Manual) Eosinophils % (Manual) Basophils % (Manual) Seg Neutrophils # Seg Neutrophils # Man Lymphocytes # (Manual) Monocytes # (Manual) Eosinophils # (Manual) Nucleated RBC % Basophils # (Manual) PT INR APTT Heparin Anti-Xa Level 0.18 L ABG pH POC ABG pO2 ABG pO2 ABG HCO3 ABG O2 Saturation ABG Base Excess POC ABG pCO2 ABG Hemoglobin ABG Oxyhemoglobin ABG Chloride ABG Glucose Oxyhemoglobin Sodium Potassium Chloride Carbon Dioxide BUN Creatinine Glucose POC Glucose 131 H 208 H Lactic Acid Calcium Phosphorus Magnesium AST ALT Lactate Dehydrogenase Total Bilirubin Direct Bilirubin CK-MB (CK-2) C-Reactive Protein NT-Pro-B Natriuret Pep Total Protein Albumin Arterial Blood Glucose Urine WBC (Auto) Urine Creatinine 12/22/19 12/22/19 12/23/19 17:44 23:20 03:51 WBC 15.2 H RBC 3.43 L Hgb 9.6 L Hct 30.3 L MCHC RDW 15.9 H MCV MCH Lymph % (Auto) Gordon % (Auto) Gordon # Eos # Lymph # (Auto) Gordon # (Auto) Eos # (Auto) Seg Neutrophils % Seg Neuts % (Manual) Baso # (Auto) Lymphocytes % (Manual) Monocytes % (Manual) Eosinophils % (Manual) Basophils % (Manual) Seg Neutrophils # Seg Neutrophils # Man Lymphocytes # (Manual) Monocytes # (Manual) Eosinophils # (Manual) Nucleated RBC % Basophils # (Manual) PT INR APTT Heparin Anti-Xa Level ABG pH POC ABG pO2 ABG pO2 ABG HCO3 ABG O2 Saturation ABG Base Excess POC ABG pCO2 ABG Hemoglobin ABG Oxyhemoglobin ABG Chloride ABG Glucose Oxyhemoglobin Sodium Potassium Chloride Carbon Dioxide BUN Creatinine Glucose POC Glucose 209 H 119 H Lactic Acid Calcium Phosphorus Magnesium AST ALT Lactate Dehydrogenase Total Bilirubin Direct Bilirubin CK-MB (CK-2) C-Reactive Protein NT-Pro-B Natriuret Pep Total Protein Albumin Arterial Blood Glucose Urine WBC (Auto) Urine Creatinine 12/23/19 12/23/19 12/23/19 03:51 05:31 12:09 WBC RBC Hgb Hct MCHC RDW MCV MCH Lymph % (Auto) Gordon % (Auto) Gordon # Eos # Lymph # (Auto) Gordon # (Auto) Eos # (Auto) Seg Neutrophils % Seg Neuts % (Manual) Baso # (Auto) Lymphocytes % (Manual) Monocytes % (Manual) Eosinophils % (Manual) Basophils % (Manual) Seg Neutrophils # Seg Neutrophils # Man Lymphocytes # (Manual) Monocytes # (Manual) Eosinophils # (Manual) Nucleated RBC % Basophils # (Manual) PT INR APTT Heparin Anti-Xa Level ABG pH POC ABG pO2 ABG pO2 ABG HCO3 ABG O2 Saturation ABG Base Excess POC ABG pCO2 ABG Hemoglobin ABG Oxyhemoglobin ABG Chloride ABG Glucose Oxyhemoglobin Sodium Potassium Chloride 97.2 L Carbon Dioxide 31 H BUN 23 H Creatinine 0.6 L Glucose 153 H POC Glucose 149 H 144 H Lactic Acid Calcium Phosphorus Magnesium AST ALT Lactate Dehydrogenase Total Bilirubin Direct Bilirubin CK-MB (CK-2) C-Reactive Protein NT-Pro-B Natriuret Pep Total Protein Albumin Arterial Blood Glucose Urine WBC (Auto) Urine Creatinine 12/23/19 12/23/19 12/23/19 15:30 17:49 23:31 WBC RBC Hgb Hct MCHC RDW MCV MCH Lymph % (Auto) Gordon % (Auto) Gordon # Eos # Lymph # (Auto) Gordon # (Auto) Eos # (Auto) Seg Neutrophils % Seg Neuts % (Manual) Baso # (Auto) Lymphocytes % (Manual) Monocytes % (Manual) Eosinophils % (Manual) Basophils % (Manual) Seg Neutrophils # Seg Neutrophils # Man Lymphocytes # (Manual) Monocytes # (Manual) Eosinophils # (Manual) Nucleated RBC % Basophils # (Manual) PT INR APTT Heparin Anti-Xa Level 0.21 L ABG pH POC ABG pO2 ABG pO2 ABG HCO3 ABG O2 Saturation ABG Base Excess POC ABG pCO2 ABG Hemoglobin ABG Oxyhemoglobin ABG Chloride ABG Glucose Oxyhemoglobin Sodium Potassium Chloride Carbon Dioxide BUN Creatinine Glucose POC Glucose 192 H 151 H Lactic Acid Calcium Phosphorus Magnesium AST ALT Lactate Dehydrogenase Total Bilirubin Direct Bilirubin CK-MB (CK-2) C-Reactive Protein NT-Pro-B Natriuret Pep Total Protein Albumin Arterial Blood Glucose Urine WBC (Auto) Urine Creatinine 12/24/19 12/24/19 12/24/19 05:34 12:13 16:50 WBC RBC Hgb Hct MCHC RDW MCV MCH Lymph % (Auto) Gordon % (Auto) Gordon # Eos # Lymph # (Auto) Gordon # (Auto) Eos # (Auto) Seg Neutrophils % Seg Neuts % (Manual) Baso # (Auto) Lymphocytes % (Manual) Monocytes % (Manual) Eosinophils % (Manual) Basophils % (Manual) Seg Neutrophils # Seg Neutrophils # Man Lymphocytes # (Manual) Monocytes # (Manual) Eosinophils # (Manual) Nucleated RBC % Basophils # (Manual) PT INR APTT Heparin Anti-Xa Level 0.16 L ABG pH POC ABG pO2 ABG pO2 ABG HCO3 ABG O2 Saturation ABG Base Excess POC ABG pCO2 ABG Hemoglobin ABG Oxyhemoglobin ABG Chloride ABG Glucose Oxyhemoglobin Sodium Potassium Chloride Carbon Dioxide BUN Creatinine Glucose POC Glucose 145 H 124 H Lactic Acid Calcium Phosphorus Magnesium AST ALT Lactate Dehydrogenase Total Bilirubin Direct Bilirubin CK-MB (CK-2) C-Reactive Protein NT-Pro-B Natriuret Pep Total Protein Albumin Arterial Blood Glucose Urine WBC (Auto) Urine Creatinine 12/24/19 12/25/19 12/25/19 17:53 00:14 04:18 WBC 12.9 H RBC 3.30 L Hgb 9.1 L Hct 28.8 L MCHC RDW 16.4 H MCV MCH Lymph % (Auto) Gordon % (Auto) 7.8 H Gordon # Eos # Lymph # (Auto) Gordon # (Auto) 1.0 H Eos # (Auto) Seg Neutrophils % 75.5 H Seg Neuts % (Manual) Baso # (Auto) Lymphocytes % (Manual) Monocytes % (Manual) Eosinophils % (Manual) Basophils % (Manual) Seg Neutrophils # 9.7 H Seg Neutrophils # Man Lymphocytes # (Manual) Monocytes # (Manual) Eosinophils # (Manual) Nucleated RBC % Basophils # (Manual) PT INR APTT Heparin Anti-Xa Level ABG pH POC ABG pO2 ABG pO2 ABG HCO3 ABG O2 Saturation ABG Base Excess POC ABG pCO2 ABG Hemoglobin ABG Oxyhemoglobin ABG Chloride ABG Glucose Oxyhemoglobin Sodium Potassium Chloride Carbon Dioxide BUN Creatinine Glucose POC Glucose 164 H 148 H Lactic Acid Calcium Phosphorus Magnesium AST ALT Lactate Dehydrogenase Total Bilirubin Direct Bilirubin CK-MB (CK-2) C-Reactive Protein NT-Pro-B Natriuret Pep Total Protein Albumin Arterial Blood Glucose Urine WBC (Auto) Urine Creatinine 12/25/19 12/25/19 12/25/19 04:18 05:38 11:44 WBC RBC Hgb Hct MCHC RDW MCV MCH Lymph % (Auto) Gordon % (Auto) Gordon # Eos # Lymph # (Auto) Gordon # (Auto) Eos # (Auto) Seg Neutrophils % Seg Neuts % (Manual) Baso # (Auto) Lymphocytes % (Manual) Monocytes % (Manual) Eosinophils % (Manual) Basophils % (Manual) Seg Neutrophils # Seg Neutrophils # Man Lymphocytes # (Manual) Monocytes # (Manual) Eosinophils # (Manual) Nucleated RBC % Basophils # (Manual) PT INR APTT Heparin Anti-Xa Level ABG pH POC ABG pO2 ABG pO2 ABG HCO3 ABG O2 Saturation ABG Base Excess POC ABG pCO2 ABG Hemoglobin ABG Oxyhemoglobin ABG Chloride ABG Glucose Oxyhemoglobin Sodium Potassium Chloride Carbon Dioxide 33 H BUN 27 H Creatinine 0.6 L Glucose 132 H POC Glucose 152 H 166 H Lactic Acid Calcium Phosphorus Magnesium AST ALT Lactate Dehydrogenase Total Bilirubin Direct Bilirubin CK-MB (CK-2) C-Reactive Protein NT-Pro-B Natriuret Pep Total Protein Albumin Arterial Blood Glucose Urine WBC (Auto) Urine Creatinine 12/25/19 12/26/19 12/26/19 18:29 00:17 00:18 WBC RBC Hgb Hct MCHC RDW MCV MCH Lymph % (Auto) Gordon % (Auto) Gordon # Eos # Lymph # (Auto) Gordon # (Auto) Eos # (Auto) Seg Neutrophils % Seg Neuts % (Manual) Baso # (Auto) Lymphocytes % (Manual) Monocytes % (Manual) Eosinophils % (Manual) Basophils % (Manual) Seg Neutrophils # Seg Neutrophils # Man Lymphocytes # (Manual) Monocytes # (Manual) Eosinophils # (Manual) Nucleated RBC % Basophils # (Manual) PT INR APTT Heparin Anti-Xa Level ABG pH POC ABG pO2 ABG pO2 ABG HCO3 ABG O2 Saturation ABG Base Excess POC ABG pCO2 ABG Hemoglobin ABG Oxyhemoglobin ABG Chloride ABG Glucose Oxyhemoglobin Sodium Potassium Chloride 97.8 L Carbon Dioxide BUN 25 H Creatinine 0.6 L Glucose 140 H POC Glucose 194 H 151 H Lactic Acid Calcium Phosphorus Magnesium AST ALT Lactate Dehydrogenase Total Bilirubin Direct Bilirubin CK-MB (CK-2) C-Reactive Protein NT-Pro-B Natriuret Pep Total Protein Albumin Arterial Blood Glucose Urine WBC (Auto) Urine Creatinine 12/26/19 12/26/19 12/26/19 05:36 11:41 17:50 WBC RBC Hgb Hct MCHC RDW MCV MCH Lymph % (Auto) Gordon % (Auto) Gordon # Eos # Lymph # (Auto) Gordon # (Auto) Eos # (Auto) Seg Neutrophils % Seg Neuts % (Manual) Baso # (Auto) Lymphocytes % (Manual) Monocytes % (Manual) Eosinophils % (Manual) Basophils % (Manual) Seg Neutrophils # Seg Neutrophils # Man Lymphocytes # (Manual) Monocytes # (Manual) Eosinophils # (Manual) Nucleated RBC % Basophils # (Manual) PT INR APTT Heparin Anti-Xa Level ABG pH POC ABG pO2 ABG pO2 ABG HCO3 ABG O2 Saturation ABG Base Excess POC ABG pCO2 ABG Hemoglobin ABG Oxyhemoglobin ABG Chloride ABG Glucose Oxyhemoglobin Sodium Potassium Chloride Carbon Dioxide BUN Creatinine Glucose POC Glucose 156 H 148 H 139 H Lactic Acid Calcium Phosphorus Magnesium AST ALT Lactate Dehydrogenase Total Bilirubin Direct Bilirubin CK-MB (CK-2) C-Reactive Protein NT-Pro-B Natriuret Pep Total Protein Albumin Arterial Blood Glucose Urine WBC (Auto) Urine Creatinine 12/26/19 12/27/19 12/27/19 23:19 05:34 12:02 WBC RBC Hgb Hct MCHC RDW MCV MCH Lymph % (Auto) Gordon % (Auto) Gordon # Eos # Lymph # (Auto) Gordon # (Auto) Eos # (Auto) Seg Neutrophils % Seg Neuts % (Manual) Baso # (Auto) Lymphocytes % (Manual) Monocytes % (Manual) Eosinophils % (Manual) Basophils % (Manual) Seg Neutrophils # Seg Neutrophils # Man Lymphocytes # (Manual) Monocytes # (Manual) Eosinophils # (Manual) Nucleated RBC % Basophils # (Manual) PT INR APTT Heparin Anti-Xa Level ABG pH POC ABG pO2 ABG pO2 ABG HCO3 ABG O2 Saturation ABG Base Excess POC ABG pCO2 ABG Hemoglobin ABG Oxyhemoglobin ABG Chloride ABG Glucose Oxyhemoglobin Sodium Potassium Chloride Carbon Dioxide BUN Creatinine Glucose POC Glucose 161 H 145 H 157 H Lactic Acid Calcium Phosphorus Magnesium AST ALT Lactate Dehydrogenase Total Bilirubin Direct Bilirubin CK-MB (CK-2) C-Reactive Protein NT-Pro-B Natriuret Pep Total Protein Albumin Arterial Blood Glucose Urine WBC (Auto) Urine Creatinine 12/27/19 12/27/19 12/27/19 17:35 20:11 23:00 WBC RBC Hgb Hct MCHC RDW MCV MCH Lymph % (Auto) Gordon % (Auto) Gordon # Eos # Lymph # (Auto) Gordon # (Auto) Eos # (Auto) Seg Neutrophils % Seg Neuts % (Manual) Baso # (Auto) Lymphocytes % (Manual) Monocytes % (Manual) Eosinophils % (Manual) Basophils % (Manual) Seg Neutrophils # Seg Neutrophils # Man Lymphocytes # (Manual) Monocytes # (Manual) Eosinophils # (Manual) Nucleated RBC % Basophils # (Manual) PT INR APTT Heparin Anti-Xa Level 0.19 L ABG pH POC ABG pO2 ABG pO2 ABG HCO3 ABG O2 Saturation ABG Base Excess POC ABG pCO2 ABG Hemoglobin ABG Oxyhemoglobin ABG Chloride ABG Glucose Oxyhemoglobin Sodium Potassium Chloride Carbon Dioxide BUN Creatinine Glucose POC Glucose 158 H 155 H Lactic Acid Calcium Phosphorus Magnesium AST ALT Lactate Dehydrogenase Total Bilirubin Direct Bilirubin CK-MB (CK-2) C-Reactive Protein NT-Pro-B Natriuret Pep Total Protein Albumin Arterial Blood Glucose Urine WBC (Auto) Urine Creatinine 12/27/19 12/28/19 12/28/19 23:45 02:41 02:41 WBC 13.0 H RBC 3.48 L Hgb 9.5 L Hct 30.6 L MCHC 31 L RDW 16.6 H MCV MCH 27 L Lymph % (Auto) 13.0 L Gordon % (Auto) 8.0 H Gordon # Eos # Lymph # (Auto) Gordon # (Auto) 1.0 H Eos # (Auto) Seg Neutrophils % 76.3 H Seg Neuts % (Manual) Baso # (Auto) Lymphocytes % (Manual) Monocytes % (Manual) Eosinophils % (Manual) Basophils % (Manual) Seg Neutrophils # 9.9 H Seg Neutrophils # Man Lymphocytes # (Manual) Monocytes # (Manual) Eosinophils # (Manual) Nucleated RBC % Basophils # (Manual) PT INR APTT Heparin Anti-Xa Level ABG pH POC ABG pO2 ABG pO2 ABG HCO3 ABG O2 Saturation ABG Base Excess POC ABG pCO2 ABG Hemoglobin ABG Oxyhemoglobin ABG Chloride ABG Glucose Oxyhemoglobin Sodium Potassium Chloride Carbon Dioxide BUN 22 H Creatinine 0.6 L Glucose 101 H POC Glucose 130 H Lactic Acid Calcium Phosphorus Magnesium AST ALT Lactate Dehydrogenase Total Bilirubin Direct Bilirubin CK-MB (CK-2) C-Reactive Protein NT-Pro-B Natriuret Pep Total Protein Albumin Arterial Blood Glucose Urine WBC (Auto) Urine Creatinine 12/28/19 12/28/1920 06:00 12:34 18:13 WBC RBC Hgb Hct MCHC RDW MCV MCH Lymph % (Auto) Gordon % (Auto) Gordon # Eos # Lymph # (Auto) Gordon # (Auto) Eos # (Auto) Seg Neutrophils % Seg Neuts % (Manual) Baso # (Auto) Lymphocytes % (Manual) Monocytes % (Manual) Eosinophils % (Manual) Basophils % (Manual) Seg Neutrophils # Seg Neutrophils # Man Lymphocytes # (Manual) Monocytes # (Manual) Eosinophils # (Manual) Nucleated RBC % Basophils # (Manual) PT INR APTT Heparin Anti-Xa Level ABG pH POC ABG pO2 ABG pO2 ABG HCO3 ABG O2 Saturation ABG Base Excess POC ABG pCO2 ABG Hemoglobin ABG Oxyhemoglobin ABG Chloride ABG Glucose Oxyhemoglobin Sodium Potassium Chloride Carbon Dioxide BUN Creatinine Glucose POC Glucose 150 H 161 H 128 H Lactic Acid Calcium Phosphorus Magnesium AST ALT Lactate Dehydrogenase Total Bilirubin Direct Bilirubin CK-MB (CK-2) C-Reactive Protein NT-Pro-B Natriuret Pep Total Protein Albumin Arterial Blood Glucose Urine WBC (Auto) Urine Creatinine 12/28/19 12/29/19 12/29/19 23:36 05:21 11:40 WBC RBC Hgb Hct MCHC RDW MCV MCH Lymph % (Auto) Gordon % (Auto) Gordon # Eos # Lymph # (Auto) Gordon # (Auto) Eos # (Auto) Seg Neutrophils % Seg Neuts % (Manual) Baso # (Auto) Lymphocytes % (Manual) Monocytes % (Manual) Eosinophils % (Manual) Basophils % (Manual) Seg Neutrophils # Seg Neutrophils # Man Lymphocytes # (Manual) Monocytes # (Manual) Eosinophils # (Manual) Nucleated RBC % Basophils # (Manual) PT INR APTT Heparin Anti-Xa Level ABG pH POC ABG pO2 ABG pO2 ABG HCO3 ABG O2 Saturation ABG Base Excess POC ABG pCO2 ABG Hemoglobin ABG Oxyhemoglobin ABG Chloride ABG Glucose Oxyhemoglobin Sodium Potassium Chloride Carbon Dioxide BUN Creatinine Glucose POC Glucose 137 H 136 H 166 H Lactic Acid Calcium Phosphorus Magnesium AST ALT Lactate Dehydrogenase Total Bilirubin Direct Bilirubin CK-MB (CK-2) C-Reactive Protein NT-Pro-B Natriuret Pep Total Protein Albumin Arterial Blood Glucose Urine WBC (Auto) Urine Creatinine 12/29/19 12/29/19 12/29/19 17:23 19:21 23:38 WBC RBC Hgb Hct MCHC RDW MCV MCH Lymph % (Auto) Gordon % (Auto) Gordon # Eos # Lymph # (Auto) Gordon # (Auto) Eos # (Auto) Seg Neutrophils % Seg Neuts % (Manual) Baso # (Auto) Lymphocytes % (Manual) Monocytes % (Manual) Eosinophils % (Manual) Basophils % (Manual) Seg Neutrophils # Seg Neutrophils # Man Lymphocytes # (Manual) Monocytes # (Manual) Eosinophils # (Manual) Nucleated RBC % Basophils # (Manual) PT INR APTT Heparin Anti-Xa Level 0.20 L ABG pH POC ABG pO2 ABG pO2 ABG HCO3 ABG O2 Saturation ABG Base Excess POC ABG pCO2 ABG Hemoglobin ABG Oxyhemoglobin ABG Chloride ABG Glucose Oxyhemoglobin Sodium Potassium Chloride Carbon Dioxide BUN Creatinine Glucose POC Glucose 144 H 141 H Lactic Acid Calcium Phosphorus Magnesium AST ALT Lactate Dehydrogenase Total Bilirubin Direct Bilirubin CK-MB (CK-2) C-Reactive Protein NT-Pro-B Natriuret Pep Total Protein Albumin Arterial Blood Glucose Urine WBC (Auto) Urine Creatinine 12/30/19 12/30/19 12/30/19 03:58 03:58 04:59 WBC RBC 3.54 L Hgb 9.8 L Hct 30.7 L MCHC RDW 16.8 H MCV MCH Lymph % (Auto) Gordon % (Auto) Gordon # Eos # Lymph # (Auto) Gordon # (Auto) Eos # (Auto) Seg Neutrophils % Seg Neuts % (Manual) Baso # (Auto) Lymphocytes % (Manual) Monocytes % (Manual) Eosinophils % (Manual) Basophils % (Manual) Seg Neutrophils # Seg Neutrophils # Man Lymphocytes # (Manual) Monocytes # (Manual) Eosinophils # (Manual) Nucleated RBC % Basophils # (Manual) PT INR APTT Heparin Anti-Xa Level ABG pH POC ABG pO2 ABG pO2 ABG HCO3 29.8 H ABG O2 Saturation ABG Base Excess 4.8 H POC ABG pCO2 ABG Hemoglobin 11.2 L ABG Oxyhemoglobin ABG Chloride ABG Glucose Oxyhemoglobin 93.8 L Sodium Potassium Chloride 97.8 L Carbon Dioxide BUN 26 H Creatinine Glucose 168 H POC Glucose Lactic Acid Calcium Phosphorus Magnesium AST ALT Lactate Dehydrogenase Total Bilirubin Direct Bilirubin CK-MB (CK-2) C-Reactive Protein NT-Pro-B Natriuret Pep Total Protein Albumin Arterial Blood Glucose Urine WBC (Auto) Urine Creatinine 12/30/19 12/30/19 12/30/19 05:45 11:34 17:28 WBC RBC Hgb Hct MCHC RDW MCV MCH Lymph % (Auto) Gordon % (Auto) Gordon # Eos # Lymph # (Auto) Gordon # (Auto) Eos # (Auto) Seg Neutrophils % Seg Neuts % (Manual) Baso # (Auto) Lymphocytes % (Manual) Monocytes % (Manual) Eosinophils % (Manual) Basophils % (Manual) Seg Neutrophils # Seg Neutrophils # Man Lymphocytes # (Manual) Monocytes # (Manual) Eosinophils # (Manual) Nucleated RBC % Basophils # (Manual) PT INR APTT Heparin Anti-Xa Level ABG pH POC ABG pO2 ABG pO2 ABG HCO3 ABG O2 Saturation ABG Base Excess POC ABG pCO2 ABG Hemoglobin ABG Oxyhemoglobin ABG Chloride ABG Glucose Oxyhemoglobin Sodium Potassium Chloride Carbon Dioxide BUN Creatinine Glucose POC Glucose 163 H 180 H 150 H Lactic Acid Calcium Phosphorus Magnesium AST ALT Lactate Dehydrogenase Total Bilirubin Direct Bilirubin CK-MB (CK-2) C-Reactive Protein NT-Pro-B Natriuret Pep Total Protein Albumin Arterial Blood Glucose Urine WBC (Auto) Urine Creatinine 12/30/19 12/31/19 12/31/19 23:43 04:55 05:07 WBC RBC Hgb Hct MCHC RDW MCV MCH Lymph % (Auto) Gordon % (Auto) Gordon # Eos # Lymph # (Auto) Gordon # (Auto) Eos # (Auto) Seg Neutrophils % Seg Neuts % (Manual) Baso # (Auto) Lymphocytes % (Manual) Monocytes % (Manual) Eosinophils % (Manual) Basophils % (Manual) Seg Neutrophils # Seg Neutrophils # Man Lymphocytes # (Manual) Monocytes # (Manual) Eosinophils # (Manual) Nucleated RBC % Basophils # (Manual) PT INR APTT Heparin Anti-Xa Level ABG pH POC ABG pO2 ABG pO2 ABG HCO3 ABG O2 Saturation ABG Base Excess POC ABG pCO2 ABG Hemoglobin ABG Oxyhemoglobin ABG Chloride ABG Glucose Oxyhemoglobin Sodium Potassium 5.6 H D Chloride Carbon Dioxide BUN 33 H Creatinine Glucose 131 H POC Glucose 142 H 134 H Lactic Acid Calcium Phosphorus Magnesium AST ALT Lactate Dehydrogenase Total Bilirubin Direct Bilirubin CK-MB (CK-2) C-Reactive Protein NT-Pro-B Natriuret Pep Total Protein Albumin Arterial Blood Glucose Urine WBC (Auto) Urine Creatinine 12/31/19 12/31/19 12/31/19 11:30 17:19 17:36 WBC RBC Hgb Hct MCHC RDW MCV MCH Lymph % (Auto) Gordon % (Auto) Gordon # Eos # Lymph # (Auto) Gordon # (Auto) Eos # (Auto) Seg Neutrophils % Seg Neuts % (Manual) Baso # (Auto) Lymphocytes % (Manual) Monocytes % (Manual) Eosinophils % (Manual) Basophils % (Manual) Seg Neutrophils # Seg Neutrophils # Man Lymphocytes # (Manual) Monocytes # (Manual) Eosinophils # (Manual) Nucleated RBC % Basophils # (Manual) PT INR APTT Heparin Anti-Xa Level ABG pH POC ABG pO2 ABG pO2 ABG HCO3 ABG O2 Saturation ABG Base Excess POC ABG pCO2 ABG Hemoglobin ABG Oxyhemoglobin ABG Chloride ABG Glucose Oxyhemoglobin Sodium Potassium Chloride Carbon Dioxide BUN 35 H Creatinine Glucose 156 H POC Glucose 158 H 181 H Lactic Acid Calcium Phosphorus Magnesium AST ALT Lactate Dehydrogenase Total Bilirubin Direct Bilirubin CK-MB (CK-2) C-Reactive Protein NT-Pro-B Natriuret Pep Total Protein Albumin Arterial Blood Glucose Urine WBC (Auto) Urine Creatinine 12/31/19 12/31/19 12/31/19 18:16 19:41 21:53 WBC RBC Hgb Hct MCHC RDW MCV MCH Lymph % (Auto) Gordon % (Auto) Gordon # Eos # Lymph # (Auto) Gordon # (Auto) Eos # (Auto) Seg Neutrophils % Seg Neuts % (Manual) Baso # (Auto) Lymphocytes % (Manual) Monocytes % (Manual) Eosinophils % (Manual) Basophils % (Manual) Seg Neutrophils # Seg Neutrophils # Man Lymphocytes # (Manual) Monocytes # (Manual) Eosinophils # (Manual) Nucleated RBC % Basophils # (Manual) PT INR APTT Heparin Anti-Xa Level 0.20 L ABG pH POC ABG pO2 ABG pO2 ABG HCO3 ABG O2 Saturation ABG Base Excess POC ABG pCO2 ABG Hemoglobin ABG Oxyhemoglobin ABG Chloride ABG Glucose Oxyhemoglobin Sodium Potassium Chloride Carbon Dioxide BUN 34 H Creatinine Glucose 169 H POC Glucose 141 H Lactic Acid Calcium Phosphorus Magnesium AST ALT Lactate Dehydrogenase Total Bilirubin Direct Bilirubin CK-MB (CK-2) C-Reactive Protein NT-Pro-B Natriuret Pep Total Protein Albumin Arterial Blood Glucose Urine WBC (Auto) Urine Creatinine 12/31/19 01/01/2012/31/20 23:51 05:17 10:40 WBC RBC Hgb Hct MCHC RDW MCV MCH Lymph % (Auto) Gordon % (Auto) Gordon # Eos # Lymph # (Auto) Gordon # (Auto) Eos # (Auto) Seg Neutrophils % Seg Neuts % (Manual) Baso # (Auto) Lymphocytes % (Manual) Monocytes % (Manual) Eosinophils % (Manual) Basophils % (Manual) Seg Neutrophils # Seg Neutrophils # Man Lymphocytes # (Manual) Monocytes # (Manual) Eosinophils # (Manual) Nucleated RBC % Basophils # (Manual) PT INR APTT Heparin Anti-Xa Level ABG pH POC ABG pO2 ABG pO2 ABG HCO3 ABG O2 Saturation ABG Base Excess POC ABG pCO2 ABG Hemoglobin ABG Oxyhemoglobin ABG Chloride ABG Glucose Oxyhemoglobin Sodium Potassium Chloride Carbon Dioxide BUN 31 H Creatinine 0.7 L Glucose 137 H POC Glucose 131 H 155 H Lactic Acid Calcium Phosphorus Magnesium AST 73 H ALT 97 H Lactate Dehydrogenase Total Bilirubin Direct Bilirubin CK-MB (CK-2) C-Reactive Protein NT-Pro-B Natriuret Pep 3866 H Total Protein Albumin 2.8 L Arterial Blood Glucose Urine WBC (Auto) Urine Creatinine 01/01/20 01/01/20 01/01/20 12:26 15:33 17:53 WBC 14.3 H RBC 3.35 L Hgb 9.1 L Hct 28.8 L MCHC RDW 17.0 H MCV MCH 27 L Lymph % (Auto) 7.0 L Gordon % (Auto) 7.6 H Gordon # Eos # Lymph # (Auto) 1.0 L Gordon # (Auto) 1.1 H Eos # (Auto) Seg Neutrophils % 83.3 H Seg Neuts % (Manual) Baso # (Auto) Lymphocytes % (Manual) Monocytes % (Manual) Eosinophils % (Manual) Basophils % (Manual) Seg Neutrophils # 12.0 H Seg Neutrophils # Man Lymphocytes # (Manual) Monocytes # (Manual) Eosinophils # (Manual) Nucleated RBC % Basophils # (Manual) PT INR APTT Heparin Anti-Xa Level ABG pH POC ABG pO2 ABG pO2 ABG HCO3 ABG O2 Saturation ABG Base Excess POC ABG pCO2 ABG Hemoglobin ABG Oxyhemoglobin ABG Chloride ABG Glucose Oxyhemoglobin Sodium Potassium Chloride Carbon Dioxide BUN Creatinine Glucose POC Glucose 128 H 128 H Lactic Acid Calcium Phosphorus Magnesium AST ALT Lactate Dehydrogenase Total Bilirubin Direct Bilirubin CK-MB (CK-2) C-Reactive Protein NT-Pro-B Natriuret Pep Total Protein Albumin Arterial Blood Glucose Urine WBC (Auto) Urine Creatinine 01/01/20 01/02/20 01/02/20 23:04 05:39 07:00 WBC RBC Hgb Hct MCHC RDW MCV MCH Lymph % (Auto) Gordon % (Auto) Gordon # Eos # Lymph # (Auto) Gordon # (Auto) Eos # (Auto) Seg Neutrophils % Seg Neuts % (Manual) Baso # (Auto) Lymphocytes % (Manual) Monocytes % (Manual) Eosinophils % (Manual) Basophils % (Manual) Seg Neutrophils # Seg Neutrophils # Man Lymphocytes # (Manual) Monocytes # (Manual) Eosinophils # (Manual) Nucleated RBC % Basophils # (Manual) PT INR APTT Heparin Anti-Xa Level 0.13 L ABG pH POC ABG pO2 ABG pO2 ABG HCO3 ABG O2 Saturation ABG Base Excess POC ABG pCO2 ABG Hemoglobin ABG Oxyhemoglobin ABG Chloride ABG Glucose Oxyhemoglobin Sodium Potassium Chloride Carbon Dioxide BUN Creatinine Glucose POC Glucose 120 H 169 H Lactic Acid Calcium Phosphorus Magnesium AST ALT Lactate Dehydrogenase Total Bilirubin Direct Bilirubin CK-MB (CK-2) C-Reactive Protein NT-Pro-B Natriuret Pep Total Protein Albumin Arterial Blood Glucose Urine WBC (Auto) Urine Creatinine 01/02/20 01/02/20 01/02/20 12:15 14:06 17:58 WBC RBC Hgb Hct MCHC RDW MCV MCH Lymph % (Auto) Gordon % (Auto) Gordon # Eos # Lymph # (Auto) Gordon # (Auto) Eos # (Auto) Seg Neutrophils % Seg Neuts % (Manual) Baso # (Auto) Lymphocytes % (Manual) Monocytes % (Manual) Eosinophils % (Manual) Basophils % (Manual) Seg Neutrophils # Seg Neutrophils # Man Lymphocytes # (Manual) Monocytes # (Manual) Eosinophils # (Manual) Nucleated RBC % Basophils # (Manual) PT INR APTT Heparin Anti-Xa Level < 0.10 L ABG pH POC ABG pO2 ABG pO2 ABG HCO3 ABG O2 Saturation ABG Base Excess POC ABG pCO2 ABG Hemoglobin ABG Oxyhemoglobin ABG Chloride ABG Glucose Oxyhemoglobin Sodium Potassium Chloride Carbon Dioxide BUN Creatinine Glucose POC Glucose 190 H 198 H Lactic Acid Calcium Phosphorus Magnesium AST ALT Lactate Dehydrogenase Total Bilirubin Direct Bilirubin CK-MB (CK-2) C-Reactive Protein NT-Pro-B Natriuret Pep Total Protein Albumin Arterial Blood Glucose Urine WBC (Auto) Urine Creatinine 01/02/20 01/02/20 01/03/20 21:43 23:33 05:42 WBC RBC Hgb Hct MCHC RDW MCV MCH Lymph % (Auto) Gordon % (Auto) Gordon # Eos # Lymph # (Auto) Gordon # (Auto) Eos # (Auto) Seg Neutrophils % Seg Neuts % (Manual) Baso # (Auto) Lymphocytes % (Manual) Monocytes % (Manual) Eosinophils % (Manual) Basophils % (Manual) Seg Neutrophils # Seg Neutrophils # Man Lymphocytes # (Manual) Monocytes # (Manual) Eosinophils # (Manual) Nucleated RBC % Basophils # (Manual) PT INR APTT Heparin Anti-Xa Level 0.10 L ABG pH POC ABG pO2 ABG pO2 ABG HCO3 ABG O2 Saturation ABG Base Excess POC ABG pCO2 ABG Hemoglobin ABG Oxyhemoglobin ABG Chloride ABG Glucose Oxyhemoglobin Sodium Potassium Chloride Carbon Dioxide BUN Creatinine Glucose POC Glucose 180 H 163 H Lactic Acid Calcium Phosphorus Magnesium AST ALT Lactate Dehydrogenase Total Bilirubin Direct Bilirubin CK-MB (CK-2) C-Reactive Protein NT-Pro-B Natriuret Pep Total Protein Albumin Arterial Blood Glucose Urine WBC (Auto) Urine Creatinine 01/03/20 01/03/20 01/03/20 06:50 07:25 07:45 WBC 12.1 H RBC 3.35 L Hgb 9.0 L Hct 28.9 L MCHC 31 L RDW 16.6 H MCV MCH 27 L Lymph % (Auto) 13.0 L Gordon % (Auto) 8.6 H Gordon # Eos # Lymph # (Auto) Gordon # (Auto) 1.0 H Eos # (Auto) Seg Neutrophils % 75.9 H Seg Neuts % (Manual) Baso # (Auto) Lymphocytes % (Manual) Monocytes % (Manual) Eosinophils % (Manual) Basophils % (Manual) Seg Neutrophils # 9.2 H Seg Neutrophils # Man Lymphocytes # (Manual) Monocytes # (Manual) Eosinophils # (Manual) Nucleated RBC % Basophils # (Manual) PT INR APTT Heparin Anti-Xa Level 0.29 L ABG pH POC ABG pO2 ABG pO2 ABG HCO3 ABG O2 Saturation ABG Base Excess POC ABG pCO2 ABG Hemoglobin ABG Oxyhemoglobin ABG Chloride ABG Glucose Oxyhemoglobin Sodium Potassium 3.3 L D Chloride Carbon Dioxide 35 H D BUN 23 H Creatinine 0.6 L Glucose 149 H POC Glucose Lactic Acid Calcium Phosphorus Magnesium AST ALT 88 H Lactate Dehydrogenase Total Bilirubin Direct Bilirubin CK-MB (CK-2) C-Reactive Protein NT-Pro-B Natriuret Pep Total Protein 6.2 L Albumin 2.9 L Arterial Blood Glucose Urine WBC (Auto) Urine Creatinine 01/03/20 01/03/20 01/03/20 12:05 17:42 18:30 WBC RBC Hgb Hct MCHC RDW MCV MCH Lymph % (Auto) Gordon % (Auto) Gordon # Eos # Lymph # (Auto) Gordon # (Auto) Eos # (Auto) Seg Neutrophils % Seg Neuts % (Manual) Baso # (Auto) Lymphocytes % (Manual) Monocytes % (Manual) Eosinophils % (Manual) Basophils % (Manual) Seg Neutrophils # Seg Neutrophils # Man Lymphocytes # (Manual) Monocytes # (Manual) Eosinophils # (Manual) Nucleated RBC % Basophils # (Manual) PT INR APTT Heparin Anti-Xa Level ABG pH POC ABG pO2 ABG pO2 70.7 L ABG HCO3 36.1 H ABG O2 Saturation 94.4 L ABG Base Excess 10.0 H POC ABG pCO2 ABG Hemoglobin 9.7 L ABG Oxyhemoglobin ABG Chloride ABG Glucose Oxyhemoglobin 91.8 L Sodium Potassium Chloride Carbon Dioxide BUN Creatinine Glucose POC Glucose 128 H 132 H Lactic Acid Calcium Phosphorus Magnesium AST ALT Lactate Dehydrogenase Total Bilirubin Direct Bilirubin CK-MB (CK-2) C-Reactive Protein NT-Pro-B Natriuret Pep Total Protein Albumin Arterial Blood Glucose Urine WBC (Auto) Urine Creatinine 01/04/20 01/04/20 01/04/20 00:10 04:26 05:23 WBC RBC Hgb Hct MCHC RDW MCV MCH Lymph % (Auto) Gordon % (Auto) Gordon # Eos # Lymph # (Auto) Gordon # (Auto) Eos # (Auto) Seg Neutrophils % Seg Neuts % (Manual) Baso # (Auto) Lymphocytes % (Manual) Monocytes % (Manual) Eosinophils % (Manual) Basophils % (Manual) Seg Neutrophils # Seg Neutrophils # Man Lymphocytes # (Manual) Monocytes # (Manual) Eosinophils # (Manual) Nucleated RBC % Basophils # (Manual) PT INR APTT Heparin Anti-Xa Level 0.16 L ABG pH POC ABG pO2 ABG pO2 ABG HCO3 ABG O2 Saturation ABG Base Excess POC ABG pCO2 ABG Hemoglobin ABG Oxyhemoglobin ABG Chloride ABG Glucose Oxyhemoglobin Sodium Potassium Chloride Carbon Dioxide BUN Creatinine Glucose POC Glucose 121 H 119 H Lactic Acid Calcium Phosphorus Magnesium AST ALT Lactate Dehydrogenase Total Bilirubin Direct Bilirubin CK-MB (CK-2) C-Reactive Protein NT-Pro-B Natriuret Pep Total Protein Albumin Arterial Blood Glucose Urine WBC (Auto) Urine Creatinine 01/04/20 01/04/20 01/04/20 09:50 09:50 12:18 WBC 15.4 H RBC 3.30 L Hgb 8.7 L Hct 28.2 L MCHC 31 L RDW 17.0 H MCV MCH 26 L Lymph % (Auto) Gordon % (Auto) 7.6 H Gordon # Eos # Lymph # (Auto) Gordon # (Auto) 1.2 H Eos # (Auto) Seg Neutrophils % 75.4 H Seg Neuts % (Manual) Baso # (Auto) Lymphocytes % (Manual) Monocytes % (Manual) Eosinophils % (Manual) Basophils % (Manual) Seg Neutrophils # 11.6 H Seg Neutrophils # Man Lymphocytes # (Manual) Monocytes # (Manual) Eosinophils # (Manual) Nucleated RBC % Basophils # (Manual) PT INR APTT Heparin Anti-Xa Level ABG pH POC ABG pO2 ABG pO2 ABG HCO3 ABG O2 Saturation ABG Base Excess POC ABG pCO2 ABG Hemoglobin ABG Oxyhemoglobin ABG Chloride ABG Glucose Oxyhemoglobin Sodium 148 H Potassium 3.5 L Chloride Carbon Dioxide 32 H BUN Creatinine 0.6 L Glucose 114 H POC Glucose 111 H Lactic Acid Calcium Phosphorus Magnesium AST ALT 59 H Lactate Dehydrogenase Total Bilirubin Direct Bilirubin CK-MB (CK-2) C-Reactive Protein NT-Pro-B Natriuret Pep Total Protein Albumin 2.6 L Arterial Blood Glucose Urine WBC (Auto) Urine Creatinine 01/05/20 01/05/20 01/05/20 04:05 04:05 05:19 WBC 11.7 H RBC 3.50 L Hgb 9.3 L Hct 29.9 L MCHC 31 L RDW 16.6 H MCV MCH 27 L Lymph % (Auto) 13.1 L Gordon % (Auto) 9.7 H Gordon # Eos # Lymph # (Auto) Gordon # (Auto) 1.1 H Eos # (Auto) Seg Neutrophils % 74.0 H Seg Neuts % (Manual) Baso # (Auto) Lymphocytes % (Manual) Monocytes % (Manual) Eosinophils % (Manual) Basophils % (Manual) Seg Neutrophils # 8.6 H Seg Neutrophils # Man Lymphocytes # (Manual) Monocytes # (Manual) Eosinophils # (Manual) Nucleated RBC % Basophils # (Manual) PT INR APTT Heparin Anti-Xa Level ABG pH POC ABG pO2 ABG pO2 ABG HCO3 ABG O2 Saturation ABG Base Excess POC ABG pCO2 ABG Hemoglobin ABG Oxyhemoglobin ABG Chloride ABG Glucose Oxyhemoglobin Sodium 151 H Potassium Chloride Carbon Dioxide 34 H BUN Creatinine 0.7 L Glucose POC Glucose 112 H Lactic Acid Calcium Phosphorus Magnesium AST ALT 59 H Lactate Dehydrogenase Total Bilirubin Direct Bilirubin CK-MB (CK-2) C-Reactive Protein NT-Pro-B Natriuret Pep Total Protein 5.8 L Albumin 2.6 L Arterial Blood Glucose Urine WBC (Auto) Urine Creatinine 01/05/20 01/06/20 01/06/20 16:04 00:23 04:44 WBC RBC 3.36 L Hgb 8.9 L Hct 28.7 L MCHC 31 L RDW 16.9 H MCV MCH 26 L Lymph % (Auto) Gordon % (Auto) 9.4 H Gordon # Eos # Lymph # (Auto) Gordon # (Auto) Eos # (Auto) Seg Neutrophils % Seg Neuts % (Manual) Baso # (Auto) Lymphocytes % (Manual) Monocytes % (Manual) Eosinophils % (Manual) Basophils % (Manual) Seg Neutrophils # Seg Neutrophils # Man Lymphocytes # (Manual) Monocytes # (Manual) Eosinophils # (Manual) Nucleated RBC % Basophils # (Manual) PT INR APTT Heparin Anti-Xa Level ABG pH POC ABG pO2 ABG pO2 ABG HCO3 ABG O2 Saturation ABG Base Excess POC ABG pCO2 ABG Hemoglobin ABG Oxyhemoglobin ABG Chloride ABG Glucose Oxyhemoglobin Sodium 151 H Potassium 3.2 L Chloride Carbon Dioxide 34 H BUN Creatinine 0.6 L Glucose POC Glucose 107 H Lactic Acid Calcium Phosphorus Magnesium AST ALT Lactate Dehydrogenase Total Bilirubin Direct Bilirubin CK-MB (CK-2) C-Reactive Protein NT-Pro-B Natriuret Pep Total Protein Albumin Arterial Blood Glucose Urine WBC (Auto) Urine Creatinine 01/06/20 01/06/20 01/06/20 04:44 05:33 12:04 WBC RBC Hgb Hct MCHC RDW MCV MCH Lymph % (Auto) Gordon % (Auto) Gordon # Eos # Lymph # (Auto) Gordon # (Auto) Eos # (Auto) Seg Neutrophils % Seg Neuts % (Manual) Baso # (Auto) Lymphocytes % (Manual) Monocytes % (Manual) Eosinophils % (Manual) Basophils % (Manual) Seg Neutrophils # Seg Neutrophils # Man Lymphocytes # (Manual) Monocytes # (Manual) Eosinophils # (Manual) Nucleated RBC % Basophils # (Manual) PT INR APTT Heparin Anti-Xa Level ABG pH POC ABG pO2 ABG pO2 ABG HCO3 ABG O2 Saturation ABG Base Excess POC ABG pCO2 ABG Hemoglobin ABG Oxyhemoglobin ABG Chloride ABG Glucose Oxyhemoglobin Sodium 151 H Potassium 3.4 L Chloride Carbon Dioxide 33 H BUN Creatinine 0.6 L Glucose 118 H POC Glucose 118 H 123 H Lactic Acid Calcium Phosphorus Magnesium AST ALT Lactate Dehydrogenase Total Bilirubin Direct Bilirubin CK-MB (CK-2) C-Reactive Protein NT-Pro-B Natriuret Pep Total Protein 6.2 L Albumin 2.6 L Arterial Blood Glucose Urine WBC (Auto) Urine Creatinine 01/06/20 01/07/20 01/07/20 17:54 00:06 04:10 WBC RBC 3.42 L Hgb 8.9 L Hct 29.0 L MCHC 31 L RDW 17.1 H MCV MCH 26 L Lymph % (Auto) Gordon % (Auto) 8.4 H Gordon # Eos # Lymph # (Auto) Gordon # (Auto) Eos # (Auto) Seg Neutrophils % Seg Neuts % (Manual) Baso # (Auto) Lymphocytes % (Manual) Monocytes % (Manual) Eosinophils % (Manual) Basophils % (Manual) Seg Neutrophils # Seg Neutrophils # Man Lymphocytes # (Manual) Monocytes # (Manual) Eosinophils # (Manual) Nucleated RBC % Basophils # (Manual) PT INR APTT Heparin Anti-Xa Level ABG pH POC ABG pO2 ABG pO2 ABG HCO3 ABG O2 Saturation ABG Base Excess POC ABG pCO2 ABG Hemoglobin ABG Oxyhemoglobin ABG Chloride ABG Glucose Oxyhemoglobin Sodium Potassium Chloride Carbon Dioxide BUN Creatinine Glucose POC Glucose 112 H 126 H Lactic Acid Calcium Phosphorus Magnesium AST ALT Lactate Dehydrogenase Total Bilirubin Direct Bilirubin CK-MB (CK-2) C-Reactive Protein NT-Pro-B Natriuret Pep Total Protein Albumin Arterial Blood Glucose Urine WBC (Auto) Urine Creatinine 01/07/20 01/07/20 01/07/20 04:10 05:59 12:27 WBC RBC Hgb Hct MCHC RDW MCV MCH Lymph % (Auto) Gordon % (Auto) Gordon # Eos # Lymph # (Auto) Gordon # (Auto) Eos # (Auto) Seg Neutrophils % Seg Neuts % (Manual) Baso # (Auto) Lymphocytes % (Manual) Monocytes % (Manual) Eosinophils % (Manual) Basophils % (Manual) Seg Neutrophils # Seg Neutrophils # Man Lymphocytes # (Manual) Monocytes # (Manual) Eosinophils # (Manual) Nucleated RBC % Basophils # (Manual) PT INR APTT Heparin Anti-Xa Level ABG pH POC ABG pO2 ABG pO2 ABG HCO3 ABG O2 Saturation ABG Base Excess POC ABG pCO2 ABG Hemoglobin ABG Oxyhemoglobin ABG Chloride ABG Glucose Oxyhemoglobin Sodium 153 H Potassium 3.5 L Chloride Carbon Dioxide 34 H BUN Creatinine 0.6 L Glucose 121 H POC Glucose 121 H 126 H Lactic Acid Calcium Phosphorus Magnesium AST ALT Lactate Dehydrogenase Total Bilirubin Direct Bilirubin CK-MB (CK-2) C-Reactive Protein NT-Pro-B Natriuret Pep Total Protein 5.9 L Albumin 2.4 L Arterial Blood Glucose Urine WBC (Auto) Urine Creatinine 01/07/20 01/08/20 01/08/20 18:12 00:03 05:41 WBC RBC Hgb Hct MCHC RDW MCV MCH Lymph % (Auto) Gordon % (Auto) Gordon # Eos # Lymph # (Auto) Gordon # (Auto) Eos # (Auto) Seg Neutrophils % Seg Neuts % (Manual) Baso # (Auto) Lymphocytes % (Manual) Monocytes % (Manual) Eosinophils % (Manual) Basophils % (Manual) Seg Neutrophils # Seg Neutrophils # Man Lymphocytes # (Manual) Monocytes # (Manual) Eosinophils # (Manual) Nucleated RBC % Basophils # (Manual) PT INR APTT Heparin Anti-Xa Level ABG pH POC ABG pO2 ABG pO2 ABG HCO3 ABG O2 Saturation ABG Base Excess POC ABG pCO2 ABG Hemoglobin ABG Oxyhemoglobin ABG Chloride ABG Glucose Oxyhemoglobin Sodium Potassium Chloride Carbon Dioxide BUN Creatinine Glucose POC Glucose 124 H 130 H 138 H Lactic Acid Calcium Phosphorus Magnesium AST ALT Lactate Dehydrogenase Total Bilirubin Direct Bilirubin CK-MB (CK-2) C-Reactive Protein NT-Pro-B Natriuret Pep Total Protein Albumin Arterial Blood Glucose Urine WBC (Auto) Urine Creatinine 01/08/20 01/08/20 01/08/20 09:28 11:42 18:21 WBC RBC Hgb Hct MCHC RDW MCV MCH Lymph % (Auto) Gordon % (Auto) Gordon # Eos # Lymph # (Auto) Gordon # (Auto) Eos # (Auto) Seg Neutrophils % Seg Neuts % (Manual) Baso # (Auto) Lymphocytes % (Manual) Monocytes % (Manual) Eosinophils % (Manual) Basophils % (Manual) Seg Neutrophils # Seg Neutrophils # Man Lymphocytes # (Manual) Monocytes # (Manual) Eosinophils # (Manual) Nucleated RBC % Basophils # (Manual) PT INR APTT Heparin Anti-Xa Level ABG pH POC ABG pO2 ABG pO2 ABG HCO3 ABG O2 Saturation ABG Base Excess POC ABG pCO2 ABG Hemoglobin ABG Oxyhemoglobin ABG Chloride ABG Glucose Oxyhemoglobin Sodium Potassium Chloride Carbon Dioxide BUN Creatinine Glucose POC Glucose 181 H 150 H 129 H Lactic Acid Calcium Phosphorus Magnesium AST ALT Lactate Dehydrogenase Total Bilirubin Direct Bilirubin CK-MB (CK-2) C-Reactive Protein NT-Pro-B Natriuret Pep Total Protein Albumin Arterial Blood Glucose Urine WBC (Auto) Urine Creatinine 01/08/20 01/08/20 01/09/20 19:25 23:55 04:11 WBC RBC 3.43 L Hgb 8.9 L Hct 28.7 L MCHC 31 L RDW 17.6 H MCV MCH 26 L Lymph % (Auto) Gordon % (Auto) 8.6 H Gordon # Eos # Lymph # (Auto) Gordon # (Auto) Eos # (Auto) Seg Neutrophils % Seg Neuts % (Manual) Baso # (Auto) Lymphocytes % (Manual) Monocytes % (Manual) Eosinophils % (Manual) Basophils % (Manual) Seg Neutrophils # Seg Neutrophils # Man Lymphocytes # (Manual) Monocytes # (Manual) Eosinophils # (Manual) Nucleated RBC % Basophils # (Manual) PT INR APTT Heparin Anti-Xa Level ABG pH POC ABG pO2 ABG pO2 ABG HCO3 ABG O2 Saturation ABG Base Excess POC ABG pCO2 ABG Hemoglobin ABG Oxyhemoglobin ABG Chloride ABG Glucose Oxyhemoglobin Sodium Potassium Chloride Carbon Dioxide BUN Creatinine 0.7 L Glucose 117 H POC Glucose 132 H Lactic Acid Calcium Phosphorus Magnesium AST ALT Lactate Dehydrogenase Total Bilirubin Direct Bilirubin CK-MB (CK-2) C-Reactive Protein NT-Pro-B Natriuret Pep Total Protein Albumin Arterial Blood Glucose Urine WBC (Auto) Urine Creatinine 01/09/20 01/09/20 01/09/20 04:11 05:38 22:58 WBC RBC Hgb Hct MCHC RDW MCV MCH Lymph % (Auto) Gordon % (Auto) Gordon # Eos # Lymph # (Auto) Gordon # (Auto) Eos # (Auto) Seg Neutrophils % Seg Neuts % (Manual) Baso # (Auto) Lymphocytes % (Manual) Monocytes % (Manual) Eosinophils % (Manual) Basophils % (Manual) Seg Neutrophils # Seg Neutrophils # Man Lymphocytes # (Manual) Monocytes # (Manual) Eosinophils # (Manual) Nucleated RBC % Basophils # (Manual) PT INR APTT Heparin Anti-Xa Level ABG pH POC ABG pO2 ABG pO2 ABG HCO3 ABG O2 Saturation ABG Base Excess POC ABG pCO2 ABG Hemoglobin ABG Oxyhemoglobin ABG Chloride ABG Glucose Oxyhemoglobin Sodium 147 H Potassium 3.3 L D Chloride Carbon Dioxide 32 H BUN Creatinine 0.6 L Glucose 106 H POC Glucose 107 H 113 H Lactic Acid Calcium Phosphorus Magnesium AST ALT Lactate Dehydrogenase Total Bilirubin Direct Bilirubin CK-MB (CK-2) C-Reactive Protein NT-Pro-B Natriuret Pep Total Protein Albumin Arterial Blood Glucose Urine WBC (Auto) Urine Creatinine 01/10/20 01/10/20 01/10/20 04:05 11:36 17:54 WBC RBC Hgb Hct MCHC RDW MCV MCH Lymph % (Auto) Gordon % (Auto) Gordon # Eos # Lymph # (Auto) Gordon # (Auto) Eos # (Auto) Seg Neutrophils % Seg Neuts % (Manual) Baso # (Auto) Lymphocytes % (Manual) Monocytes % (Manual) Eosinophils % (Manual) Basophils % (Manual) Seg Neutrophils # Seg Neutrophils # Man Lymphocytes # (Manual) Monocytes # (Manual) Eosinophils # (Manual) Nucleated RBC % Basophils # (Manual) PT INR APTT Heparin Anti-Xa Level ABG pH POC ABG pO2 ABG pO2 ABG HCO3 ABG O2 Saturation ABG Base Excess POC ABG pCO2 ABG Hemoglobin ABG Oxyhemoglobin ABG Chloride ABG Glucose Oxyhemoglobin Sodium Potassium Chloride Carbon Dioxide BUN Creatinine 0.7 L Glucose 110 H POC Glucose 129 H 117 H Lactic Acid Calcium Phosphorus Magnesium AST ALT Lactate Dehydrogenase Total Bilirubin Direct Bilirubin CK-MB (CK-2) C-Reactive Protein NT-Pro-B Natriuret Pep Total Protein Albumin Arterial Blood Glucose Urine WBC (Auto) Urine Creatinine 01/10/20 01/11/20 01/11/20 23:52 03:19 12:09 WBC RBC Hgb Hct MCHC RDW MCV MCH Lymph % (Auto) Gordon % (Auto) Gordon # Eos # Lymph # (Auto) Gordon # (Auto) Eos # (Auto) Seg Neutrophils % Seg Neuts % (Manual) Baso # (Auto) Lymphocytes % (Manual) Monocytes % (Manual) Eosinophils % (Manual) Basophils % (Manual) Seg Neutrophils # Seg Neutrophils # Man Lymphocytes # (Manual) Monocytes # (Manual) Eosinophils # (Manual) Nucleated RBC % Basophils # (Manual) PT INR APTT Heparin Anti-Xa Level ABG pH POC ABG pO2 ABG pO2 ABG HCO3 ABG O2 Saturation ABG Base Excess POC ABG pCO2 ABG Hemoglobin ABG Oxyhemoglobin ABG Chloride ABG Glucose Oxyhemoglobin Sodium Potassium Chloride Carbon Dioxide BUN Creatinine Glucose POC Glucose 117 H 136 H 115 H Lactic Acid Calcium Phosphorus Magnesium AST ALT Lactate Dehydrogenase Total Bilirubin Direct Bilirubin CK-MB (CK-2) C-Reactive Protein NT-Pro-B Natriuret Pep Total Protein Albumin Arterial Blood Glucose Urine WBC (Auto) Urine Creatinine 01/11/20 01/11/20 01/12/20 18:27 23:28 00:23 WBC RBC Hgb 9.8 L Hct 31.6 L MCHC 31 L RDW 17.8 H MCV 83 L MCH 26 L Lymph % (Auto) Gordon % (Auto) 8.0 H Gordon # Eos # Lymph # (Auto) Gordon # (Auto) Eos # (Auto) Seg Neutrophils % Seg Neuts % (Manual) Baso # (Auto) Lymphocytes % (Manual) Monocytes % (Manual) Eosinophils % (Manual) Basophils % (Manual) Seg Neutrophils # Seg Neutrophils # Man Lymphocytes # (Manual) Monocytes # (Manual) Eosinophils # (Manual) Nucleated RBC % Basophils # (Manual) PT INR APTT Heparin Anti-Xa Level ABG pH POC ABG pO2 ABG pO2 ABG HCO3 ABG O2 Saturation ABG Base Excess POC ABG pCO2 ABG Hemoglobin ABG Oxyhemoglobin ABG Chloride ABG Glucose Oxyhemoglobin Sodium Potassium Chloride Carbon Dioxide BUN Creatinine Glucose POC Glucose 118 H 122 H Lactic Acid Calcium Phosphorus Magnesium AST ALT Lactate Dehydrogenase Total Bilirubin Direct Bilirubin CK-MB (CK-2) C-Reactive Protein NT-Pro-B Natriuret Pep Total Protein Albumin Arterial Blood Glucose Urine WBC (Auto) Urine Creatinine 01/12/20 01/12/20 01/12/20 00:23 04:18 04:18 WBC RBC Hgb 9.6 L Hct 30.9 L MCHC 31 L RDW 17.3 H MCV 81 L MCH 25 L Lymph % (Auto) Gordon % (Auto) Gordon # Eos # Lymph # (Auto) Gordon # (Auto) Eos # (Auto) Seg Neutrophils % Seg Neuts % (Manual) Baso # (Auto) Lymphocytes % (Manual) Monocytes % (Manual) Eosinophils % (Manual) Basophils % (Manual) Seg Neutrophils # Seg Neutrophils # Man Lymphocytes # (Manual) Monocytes # (Manual) Eosinophils # (Manual) Nucleated RBC % Basophils # (Manual) PT INR APTT Heparin Anti-Xa Level ABG pH POC ABG pO2 ABG pO2 ABG HCO3 ABG O2 Saturation ABG Base Excess POC ABG pCO2 ABG Hemoglobin ABG Oxyhemoglobin ABG Chloride ABG Glucose Oxyhemoglobin Sodium Potassium Chloride Carbon Dioxide BUN Creatinine 0.7 L 0.7 L Glucose 111 H 108 H POC Glucose Lactic Acid Calcium Phosphorus Magnesium AST ALT Lactate Dehydrogenase Total Bilirubin Direct Bilirubin CK-MB (CK-2) C-Reactive Protein NT-Pro-B Natriuret Pep Total Protein Albumin 2.6 L Arterial Blood Glucose Urine WBC (Auto) Urine Creatinine 01/12/20 01/12/20 01/12/20 06:03 12:27 13:58 WBC RBC Hgb Hct MCHC RDW MCV MCH Lymph % (Auto) Gordon % (Auto) Gordon # Eos # Lymph # (Auto) Gordon # (Auto) Eos # (Auto) Seg Neutrophils % Seg Neuts % (Manual) Baso # (Auto) Lymphocytes % (Manual) Monocytes % (Manual) Eosinophils % (Manual) Basophils % (Manual) Seg Neutrophils # Seg Neutrophils # Man Lymphocytes # (Manual) Monocytes # (Manual) Eosinophils # (Manual) Nucleated RBC % Basophils # (Manual) PT INR APTT Heparin Anti-Xa Level ABG pH 7.453 H POC ABG pO2 76.6 L ABG pO2 ABG HCO3 ABG O2 Saturation ABG Base Excess POC ABG pCO2 ABG Hemoglobin 10.3 L ABG Oxyhemoglobin ABG Chloride ABG Glucose 99 H Oxyhemoglobin Sodium Potassium Chloride Carbon Dioxide BUN Creatinine Glucose POC Glucose 128 H 121 H Lactic Acid Calcium Phosphorus Magnesium AST ALT Lactate Dehydrogenase Total Bilirubin Direct Bilirubin CK-MB (CK-2) C-Reactive Protein NT-Pro-B Natriuret Pep Total Protein Albumin Arterial Blood Glucose 99 H Urine WBC (Auto) Urine Creatinine 01/12/20 01/13/20 01/13/20 18:24 12:01 17:46 WBC RBC Hgb Hct MCHC RDW MCV MCH Lymph % (Auto) Gordon % (Auto) Gordon # Eos # Lymph # (Auto) Gordon # (Auto) Eos # (Auto) Seg Neutrophils % Seg Neuts % (Manual) Baso # (Auto) Lymphocytes % (Manual) Monocytes % (Manual) Eosinophils % (Manual) Basophils % (Manual) Seg Neutrophils # Seg Neutrophils # Man Lymphocytes # (Manual) Monocytes # (Manual) Eosinophils # (Manual) Nucleated RBC % Basophils # (Manual) PT INR APTT Heparin Anti-Xa Level ABG pH POC ABG pO2 ABG pO2 ABG HCO3 ABG O2 Saturation ABG Base Excess POC ABG pCO2 ABG Hemoglobin ABG Oxyhemoglobin ABG Chloride ABG Glucose Oxyhemoglobin Sodium Potassium Chloride Carbon Dioxide BUN Creatinine Glucose POC Glucose 119 H 107 H 124 H Lactic Acid Calcium Phosphorus Magnesium AST ALT Lactate Dehydrogenase Total Bilirubin Direct Bilirubin CK-MB (CK-2) C-Reactive Protein NT-Pro-B Natriuret Pep Total Protein Albumin Arterial Blood Glucose Urine WBC (Auto) Urine Creatinine 01/13/20 01/14/20 01/14/20 20:40 00:10 05:33 WBC RBC Hgb Hct MCHC RDW MCV MCH Lymph % (Auto) Gordon % (Auto) Gordon # Eos # Lymph # (Auto) Gordon # (Auto) Eos # (Auto) Seg Neutrophils % Seg Neuts % (Manual) Baso # (Auto) Lymphocytes % (Manual) Monocytes % (Manual) Eosinophils % (Manual) Basophils % (Manual) Seg Neutrophils # Seg Neutrophils # Man Lymphocytes # (Manual) Monocytes # (Manual) Eosinophils # (Manual) Nucleated RBC % Basophils # (Manual) PT INR APTT Heparin Anti-Xa Level ABG pH POC ABG pO2 ABG pO2 65.3 L ABG HCO3 31.8 H ABG O2 Saturation 93.5 L ABG Base Excess 6.7 H POC ABG pCO2 ABG Hemoglobin 13.3 L ABG Oxyhemoglobin ABG Chloride ABG Glucose Oxyhemoglobin 90.9 L Sodium Potassium Chloride Carbon Dioxide BUN Creatinine Glucose POC Glucose 111 H 111 H Lactic Acid Calcium Phosphorus Magnesium AST ALT Lactate Dehydrogenase Total Bilirubin Direct Bilirubin CK-MB (CK-2) C-Reactive Protein NT-Pro-B Natriuret Pep Total Protein Albumin Arterial Blood Glucose Urine WBC (Auto) Urine Creatinine 01/14/20 01/14/20 01/14/20 12:10 16:14 16:14 WBC RBC Hgb 10.6 L Hct 34.2 L MCHC 31 L RDW 18.3 H MCV 83 L MCH 26 L Lymph % (Auto) Gordon % (Auto) 7.4 H Gordon # Eos # Lymph # (Auto) Gordon # (Auto) Eos # (Auto) Seg Neutrophils % 71.9 H Seg Neuts % (Manual) Baso # (Auto) Lymphocytes % (Manual) Monocytes % (Manual) Eosinophils % (Manual) Basophils % (Manual) Seg Neutrophils # Seg Neutrophils # Man Lymphocytes # (Manual) Monocytes # (Manual) Eosinophils # (Manual) Nucleated RBC % Basophils # (Manual) PT INR APTT Heparin Anti-Xa Level ABG pH POC ABG pO2 ABG pO2 ABG HCO3 ABG O2 Saturation ABG Base Excess POC ABG pCO2 ABG Hemoglobin ABG Oxyhemoglobin ABG Chloride ABG Glucose Oxyhemoglobin Sodium Potassium Chloride Carbon Dioxide 31 H BUN Creatinine 0.6 L Glucose 131 H POC Glucose 139 H Lactic Acid Calcium Phosphorus Magnesium AST ALT Lactate Dehydrogenase Total Bilirubin Direct Bilirubin CK-MB (CK-2) C-Reactive Protein NT-Pro-B Natriuret Pep Total Protein Albumin Arterial Blood Glucose Urine WBC (Auto) Urine Creatinine 01/14/20 01/15/20 01/15/20 18:05 00:52 05:35 WBC RBC Hgb Hct MCHC RDW MCV MCH Lymph % (Auto) Gordon % (Auto) Gordon # Eos # Lymph # (Auto) Gordon # (Auto) Eos # (Auto) Seg Neutrophils % Seg Neuts % (Manual) Baso # (Auto) Lymphocytes % (Manual) Monocytes % (Manual) Eosinophils % (Manual) Basophils % (Manual) Seg Neutrophils # Seg Neutrophils # Man Lymphocytes # (Manual) Monocytes # (Manual) Eosinophils # (Manual) Nucleated RBC % Basophils # (Manual) PT INR APTT Heparin Anti-Xa Level ABG pH POC ABG pO2 ABG pO2 ABG HCO3 ABG O2 Saturation ABG Base Excess POC ABG pCO2 ABG Hemoglobin ABG Oxyhemoglobin ABG Chloride ABG Glucose Oxyhemoglobin Sodium Potassium Chloride Carbon Dioxide BUN Creatinine Glucose POC Glucose 147 H 140 H 159 H Lactic Acid Calcium Phosphorus Magnesium AST ALT Lactate Dehydrogenase Total Bilirubin Direct Bilirubin CK-MB (CK-2) C-Reactive Protein NT-Pro-B Natriuret Pep Total Protein Albumin Arterial Blood Glucose Urine WBC (Auto) Urine Creatinine 01/15/20 01/15/20 01/16/20 12:52 17:43 00:32 WBC RBC Hgb Hct MCHC RDW MCV MCH Lymph % (Auto) Gordon % (Auto) Gordon # Eos # Lymph # (Auto) Gordon # (Auto) Eos # (Auto) Seg Neutrophils % Seg Neuts % (Manual) Baso # (Auto) Lymphocytes % (Manual) Monocytes % (Manual) Eosinophils % (Manual) Basophils % (Manual) Seg Neutrophils # Seg Neutrophils # Man Lymphocytes # (Manual) Monocytes # (Manual) Eosinophils # (Manual) Nucleated RBC % Basophils # (Manual) PT INR APTT Heparin Anti-Xa Level ABG pH POC ABG pO2 ABG pO2 ABG HCO3 ABG O2 Saturation ABG Base Excess POC ABG pCO2 ABG Hemoglobin ABG Oxyhemoglobin ABG Chloride ABG Glucose Oxyhemoglobin Sodium Potassium Chloride Carbon Dioxide BUN Creatinine Glucose POC Glucose 164 H 167 H 153 H Lactic Acid Calcium Phosphorus Magnesium AST ALT Lactate Dehydrogenase Total Bilirubin Direct Bilirubin CK-MB (CK-2) C-Reactive Protein NT-Pro-B Natriuret Pep Total Protein Albumin Arterial Blood Glucose Urine WBC (Auto) Urine Creatinine 01/16/20 01/16/20 01/17/20 05:46 11:48 06:38 WBC RBC Hgb Hct MCHC RDW MCV MCH Lymph % (Auto) Gordon % (Auto) Gordon # Eos # Lymph # (Auto) Gordon # (Auto) Eos # (Auto) Seg Neutrophils % Seg Neuts % (Manual) Baso # (Auto) Lymphocytes % (Manual) Monocytes % (Manual) Eosinophils % (Manual) Basophils % (Manual) Seg Neutrophils # Seg Neutrophils # Man Lymphocytes # (Manual) Monocytes # (Manual) Eosinophils # (Manual) Nucleated RBC % Basophils # (Manual) PT INR APTT Heparin Anti-Xa Level ABG pH POC ABG pO2 ABG pO2 ABG HCO3 ABG O2 Saturation ABG Base Excess POC ABG pCO2 ABG Hemoglobin ABG Oxyhemoglobin ABG Chloride ABG Glucose Oxyhemoglobin Sodium Potassium Chloride Carbon Dioxide BUN Creatinine Glucose POC Glucose 163 H 155 H 116 H Lactic Acid Calcium Phosphorus Magnesium AST ALT Lactate Dehydrogenase Total Bilirubin Direct Bilirubin CK-MB (CK-2) C-Reactive Protein NT-Pro-B Natriuret Pep Total Protein Albumin Arterial Blood Glucose Urine WBC (Auto) Urine Creatinine 01/17/20 01/17/20 01/18/20 11:36 17:43 00:12 WBC RBC Hgb Hct MCHC RDW MCV MCH Lymph % (Auto) Gordon % (Auto) Gordon # Eos # Lymph # (Auto) Gordon # (Auto) Eos # (Auto) Seg Neutrophils % Seg Neuts % (Manual) Baso # (Auto) Lymphocytes % (Manual) Monocytes % (Manual) Eosinophils % (Manual) Basophils % (Manual) Seg Neutrophils # Seg Neutrophils # Man Lymphocytes # (Manual) Monocytes # (Manual) Eosinophils # (Manual) Nucleated RBC % Basophils # (Manual) PT INR APTT Heparin Anti-Xa Level ABG pH POC ABG pO2 ABG pO2 ABG HCO3 ABG O2 Saturation ABG Base Excess POC ABG pCO2 ABG Hemoglobin ABG Oxyhemoglobin ABG Chloride ABG Glucose Oxyhemoglobin Sodium Potassium Chloride Carbon Dioxide BUN Creatinine Glucose POC Glucose 110 H 134 H 108 H Lactic Acid Calcium Phosphorus Magnesium AST ALT Lactate Dehydrogenase Total Bilirubin Direct Bilirubin CK-MB (CK-2) C-Reactive Protein NT-Pro-B Natriuret Pep Total Protein Albumin Arterial Blood Glucose Urine WBC (Auto) Urine Creatinine 01/18/20 01/18/20 01/18/20 05:37 06:46 06:46 WBC RBC Hgb 10.1 L Hct 32.2 L MCHC 31 L RDW 18.1 H MCV 81 L MCH 25 L Lymph % (Auto) Gordon % (Auto) Gordon # Eos # Lymph # (Auto) Gordon # (Auto) Eos # (Auto) Seg Neutrophils % 71.9 H Seg Neuts % (Manual) Baso # (Auto) Lymphocytes % (Manual) Monocytes % (Manual) Eosinophils % (Manual) Basophils % (Manual) Seg Neutrophils # Seg Neutrophils # Man Lymphocytes # (Manual) Monocytes # (Manual) Eosinophils # (Manual) Nucleated RBC % Basophils # (Manual) PT INR APTT Heparin Anti-Xa Level ABG pH POC ABG pO2 ABG pO2 ABG HCO3 ABG O2 Saturation ABG Base Excess POC ABG pCO2 ABG Hemoglobin ABG Oxyhemoglobin ABG Chloride ABG Glucose Oxyhemoglobin Sodium Potassium Chloride Carbon Dioxide BUN Creatinine 0.7 L Glucose 155 H POC Glucose 168 H Lactic Acid Calcium Phosphorus Magnesium AST ALT Lactate Dehydrogenase Total Bilirubin Direct Bilirubin CK-MB (CK-2) C-Reactive Protein NT-Pro-B Natriuret Pep Total Protein Albumin Arterial Blood Glucose Urine WBC (Auto) Urine Creatinine 01/18/20 01/18/20 01/18/20 12:05 17:14 23:28 WBC RBC Hgb Hct MCHC RDW MCV MCH Lymph % (Auto) Gordon % (Auto) Gordon # Eos # Lymph # (Auto) Gordon # (Auto) Eos # (Auto) Seg Neutrophils % Seg Neuts % (Manual) Baso # (Auto) Lymphocytes % (Manual) Monocytes % (Manual) Eosinophils % (Manual) Basophils % (Manual) Seg Neutrophils # Seg Neutrophils # Man Lymphocytes # (Manual) Monocytes # (Manual) Eosinophils # (Manual) Nucleated RBC % Basophils # (Manual) PT INR APTT Heparin Anti-Xa Level ABG pH POC ABG pO2 ABG pO2 ABG HCO3 ABG O2 Saturation ABG Base Excess POC ABG pCO2 ABG Hemoglobin ABG Oxyhemoglobin ABG Chloride ABG Glucose Oxyhemoglobin Sodium Potassium Chloride Carbon Dioxide BUN Creatinine Glucose POC Glucose 128 H 126 H 128 H Lactic Acid Calcium Phosphorus Magnesium AST ALT Lactate Dehydrogenase Total Bilirubin Direct Bilirubin CK-MB (CK-2) C-Reactive Protein NT-Pro-B Natriuret Pep Total Protein Albumin Arterial Blood Glucose Urine WBC (Auto) Urine Creatinine 01/19/20 01/19/20 01/19/20 05:39 12:33 17:36 WBC RBC Hgb Hct MCHC RDW MCV MCH Lymph % (Auto) Gordon % (Auto) Gordon # Eos # Lymph # (Auto) Gordon # (Auto) Eos # (Auto) Seg Neutrophils % Seg Neuts % (Manual) Baso # (Auto) Lymphocytes % (Manual) Monocytes % (Manual) Eosinophils % (Manual) Basophils % (Manual) Seg Neutrophils # Seg Neutrophils # Man Lymphocytes # (Manual) Monocytes # (Manual) Eosinophils # (Manual) Nucleated RBC % Basophils # (Manual) PT INR APTT Heparin Anti-Xa Level ABG pH POC ABG pO2 ABG pO2 ABG HCO3 ABG O2 Saturation ABG Base Excess POC ABG pCO2 ABG Hemoglobin ABG Oxyhemoglobin ABG Chloride ABG Glucose Oxyhemoglobin Sodium Potassium Chloride Carbon Dioxide BUN Creatinine Glucose POC Glucose 164 H 171 H 152 H Lactic Acid Calcium Phosphorus Magnesium AST ALT Lactate Dehydrogenase Total Bilirubin Direct Bilirubin CK-MB (CK-2) C-Reactive Protein NT-Pro-B Natriuret Pep Total Protein Albumin Arterial Blood Glucose Urine WBC (Auto) Urine Creatinine 01/20/20 01/20/20 01/20/20 00:12 05:20 05:35 WBC RBC Hgb 9.2 L Hct 29.4 L MCHC 31 L RDW 17.9 H MCV 81 L MCH 25 L Lymph % (Auto) Gordon % (Auto) Gordon # Eos # Lymph # (Auto) Gordon # (Auto) Eos # (Auto) Seg Neutrophils % Seg Neuts % (Manual) Baso # (Auto) Lymphocytes % (Manual) Monocytes % (Manual) Eosinophils % (Manual) Basophils % (Manual) Seg Neutrophils # Seg Neutrophils # Man Lymphocytes # (Manual) Monocytes # (Manual) Eosinophils # (Manual) Nucleated RBC % Basophils # (Manual) PT INR APTT Heparin Anti-Xa Level ABG pH POC ABG pO2 ABG pO2 ABG HCO3 ABG O2 Saturation ABG Base Excess POC ABG pCO2 ABG Hemoglobin ABG Oxyhemoglobin ABG Chloride ABG Glucose Oxyhemoglobin Sodium Potassium Chloride Carbon Dioxide BUN Creatinine Glucose POC Glucose 120 H 136 H Lactic Acid Calcium Phosphorus Magnesium AST ALT Lactate Dehydrogenase Total Bilirubin Direct Bilirubin CK-MB (CK-2) C-Reactive Protein NT-Pro-B Natriuret Pep Total Protein Albumin Arterial Blood Glucose Urine WBC (Auto) Urine Creatinine 01/20/20 01/20/20 01/20/20 05:40 11:58 14:55 WBC RBC Hgb 9.0 L Hct 28.3 L MCHC RDW MCV MCH Lymph % (Auto) Gordon % (Auto) Gordon # Eos # Lymph # (Auto) Gordon # (Auto) Eos # (Auto) Seg Neutrophils % Seg Neuts % (Manual) Baso # (Auto) Lymphocytes % (Manual) Monocytes % (Manual) Eosinophils % (Manual) Basophils % (Manual) Seg Neutrophils # Seg Neutrophils # Man Lymphocytes # (Manual) Monocytes # (Manual) Eosinophils # (Manual) Nucleated RBC % Basophils # (Manual) PT INR APTT Heparin Anti-Xa Level ABG pH POC ABG pO2 ABG pO2 ABG HCO3 ABG O2 Saturation ABG Base Excess POC ABG pCO2 ABG Hemoglobin ABG Oxyhemoglobin ABG Chloride ABG Glucose Oxyhemoglobin Sodium Potassium Chloride Carbon Dioxide 32 H BUN 22 H Creatinine 0.7 L Glucose 128 H POC Glucose 152 H Lactic Acid Calcium Phosphorus Magnesium AST ALT Lactate Dehydrogenase Total Bilirubin Direct Bilirubin CK-MB (CK-2) C-Reactive Protein NT-Pro-B Natriuret Pep Total Protein Albumin Arterial Blood Glucose Urine WBC (Auto) Urine Creatinine 01/20/20 01/20/20 01/20/20 14:55 18:14 21:35 WBC RBC Hgb Hct MCHC RDW MCV MCH Lymph % (Auto) Gordon % (Auto) Gordon # Eos # Lymph # (Auto) Gordon # (Auto) Eos # (Auto) Seg Neutrophils % Seg Neuts % (Manual) Baso # (Auto) Lymphocytes % (Manual) Monocytes % (Manual) Eosinophils % (Manual) Basophils % (Manual) Seg Neutrophils # Seg Neutrophils # Man Lymphocytes # (Manual) Monocytes # (Manual) Eosinophils # (Manual) Nucleated RBC % Basophils # (Manual) PT 20.4 H INR 1.72 H APTT 40.6 H Heparin Anti-Xa Level > 2.00 H ABG pH POC ABG pO2 ABG pO2 ABG HCO3 ABG O2 Saturation ABG Base Excess POC ABG pCO2 ABG Hemoglobin ABG Oxyhemoglobin ABG Chloride ABG Glucose Oxyhemoglobin Sodium Potassium Chloride Carbon Dioxide BUN Creatinine Glucose POC Glucose 150 H Lactic Acid Calcium Phosphorus Magnesium AST ALT Lactate Dehydrogenase Total Bilirubin Direct Bilirubin CK-MB (CK-2) C-Reactive Protein NT-Pro-B Natriuret Pep Total Protein Albumin Arterial Blood Glucose Urine WBC (Auto) Urine Creatinine 01/21/20 01/21/20 01/21/20 00:30 05:47 05:59 WBC RBC Hgb Hct MCHC RDW MCV MCH Lymph % (Auto) Gordon % (Auto) Gordon # Eos # Lymph # (Auto) Gordon # (Auto) Eos # (Auto) Seg Neutrophils % Seg Neuts % (Manual) Baso # (Auto) Lymphocytes % (Manual) Monocytes % (Manual) Eosinophils % (Manual) Basophils % (Manual) Seg Neutrophils # Seg Neutrophils # Man Lymphocytes # (Manual) Monocytes # (Manual) Eosinophils # (Manual) Nucleated RBC % Basophils # (Manual) PT INR APTT Heparin Anti-Xa Level 1.93 H ABG pH POC ABG pO2 ABG pO2 ABG HCO3 ABG O2 Saturation ABG Base Excess POC ABG pCO2 ABG Hemoglobin ABG Oxyhemoglobin ABG Chloride ABG Glucose Oxyhemoglobin Sodium Potassium Chloride Carbon Dioxide BUN Creatinine Glucose POC Glucose 126 H 148 H Lactic Acid Calcium Phosphorus Magnesium AST ALT Lactate Dehydrogenase Total Bilirubin Direct Bilirubin CK-MB (CK-2) C-Reactive Protein NT-Pro-B Natriuret Pep Total Protein Albumin Arterial Blood Glucose Urine WBC (Auto) Urine Creatinine 01/21/20 01/21/20 01/21/20 12:32 18:20 23:54 WBC RBC Hgb Hct MCHC RDW MCV MCH Lymph % (Auto) Gordon % (Auto) Gordon # Eos # Lymph # (Auto) Gordon # (Auto) Eos # (Auto) Seg Neutrophils % Seg Neuts % (Manual) Baso # (Auto) Lymphocytes % (Manual) Monocytes % (Manual) Eosinophils % (Manual) Basophils % (Manual) Seg Neutrophils # Seg Neutrophils # Man Lymphocytes # (Manual) Monocytes # (Manual) Eosinophils # (Manual) Nucleated RBC % Basophils # (Manual) PT INR APTT Heparin Anti-Xa Level 1.28 H ABG pH POC ABG pO2 ABG pO2 ABG HCO3 ABG O2 Saturation ABG Base Excess POC ABG pCO2 ABG Hemoglobin ABG Oxyhemoglobin ABG Chloride ABG Glucose Oxyhemoglobin Sodium Potassium Chloride Carbon Dioxide BUN Creatinine Glucose POC Glucose 112 H 146 H Lactic Acid Calcium Phosphorus Magnesium AST ALT Lactate Dehydrogenase Total Bilirubin Direct Bilirubin CK-MB (CK-2) C-Reactive Protein NT-Pro-B Natriuret Pep Total Protein Albumin Arterial Blood Glucose Urine WBC (Auto) Urine Creatinine 01/22/20 01/22/20 01/22/20 04:45 04:45 05:48 WBC RBC Hgb 9.3 L Hct 29.0 L MCHC RDW MCV MCH Lymph % (Auto) Gordon % (Auto) Gordon # Eos # Lymph # (Auto) Gordon # (Auto) Eos # (Auto) Seg Neutrophils % Seg Neuts % (Manual) Baso # (Auto) Lymphocytes % (Manual) Monocytes % (Manual) Eosinophils % (Manual) Basophils % (Manual) Seg Neutrophils # Seg Neutrophils # Man Lymphocytes # (Manual) Monocytes # (Manual) Eosinophils # (Manual) Nucleated RBC % Basophils # (Manual) PT INR APTT Heparin Anti-Xa Level 1.34 H ABG pH POC ABG pO2 ABG pO2 ABG HCO3 ABG O2 Saturation ABG Base Excess POC ABG pCO2 ABG Hemoglobin ABG Oxyhemoglobin ABG Chloride ABG Glucose Oxyhemoglobin Sodium Potassium Chloride Carbon Dioxide BUN Creatinine Glucose POC Glucose 142 H Lactic Acid Calcium Phosphorus Magnesium AST ALT Lactate Dehydrogenase Total Bilirubin Direct Bilirubin CK-MB (CK-2) C-Reactive Protein NT-Pro-B Natriuret Pep Total Protein Albumin Arterial Blood Glucose Urine WBC (Auto) Urine Creatinine 01/22/20 01/22/20 01/22/20 08:09 08:22 09:58 WBC RBC Hgb Hct MCHC RDW MCV MCH Lymph % (Auto) Gordon % (Auto) Gordon # Eos # Lymph # (Auto) Gordon # (Auto) Eos # (Auto) Seg Neutrophils % Seg Neuts % (Manual) Baso # (Auto) Lymphocytes % (Manual) Monocytes % (Manual) Eosinophils % (Manual) Basophils % (Manual) Seg Neutrophils # Seg Neutrophils # Man Lymphocytes # (Manual) Monocytes # (Manual) Eosinophils # (Manual) Nucleated RBC % Basophils # (Manual) PT 16.9 H INR 1.34 H APTT Heparin Anti-Xa Level ABG pH POC ABG pO2 ABG pO2 ABG HCO3 ABG O2 Saturation ABG Base Excess POC ABG pCO2 ABG Hemoglobin ABG Oxyhemoglobin ABG Chloride ABG Glucose Oxyhemoglobin Sodium Potassium Chloride 97.8 L Carbon Dioxide BUN 29 H Creatinine Glucose 128 H POC Glucose 131 H Lactic Acid Calcium Phosphorus Magnesium AST ALT Lactate Dehydrogenase Total Bilirubin Direct Bilirubin CK-MB (CK-2) C-Reactive Protein NT-Pro-B Natriuret Pep Total Protein Albumin Arterial Blood Glucose Urine WBC (Auto) Urine Creatinine 01/22/20 01/22/20 01/22/20 12:44 16:13 18:18 WBC RBC Hgb Hct MCHC RDW MCV MCH Lymph % (Auto) Gordon % (Auto) Gordon # Eos # Lymph # (Auto) Gordon # (Auto) Eos # (Auto) Seg Neutrophils % Seg Neuts % (Manual) Baso # (Auto) Lymphocytes % (Manual) Monocytes % (Manual) Eosinophils % (Manual) Basophils % (Manual) Seg Neutrophils # Seg Neutrophils # Man Lymphocytes # (Manual) Monocytes # (Manual) Eosinophils # (Manual) Nucleated RBC % Basophils # (Manual) PT INR APTT Heparin Anti-Xa Level ABG pH POC ABG pO2 ABG pO2 ABG HCO3 ABG O2 Saturation ABG Base Excess POC ABG pCO2 ABG Hemoglobin ABG Oxyhemoglobin ABG Chloride ABG Glucose Oxyhemoglobin Sodium Potassium Chloride Carbon Dioxide BUN Creatinine Glucose POC Glucose 156 H 133 H 155 H Lactic Acid Calcium Phosphorus Magnesium AST ALT Lactate Dehydrogenase Total Bilirubin Direct Bilirubin CK-MB (CK-2) C-Reactive Protein NT-Pro-B Natriuret Pep Total Protein Albumin Arterial Blood Glucose Urine WBC (Auto) Urine Creatinine 01/22/20 01/23/20 01/23/20 23:22 05:37 12:59 WBC RBC Hgb Hct MCHC RDW MCV MCH Lymph % (Auto) Gordon % (Auto) Gordon # Eos # Lymph # (Auto) Gordon # (Auto) Eos # (Auto) Seg Neutrophils % Seg Neuts % (Manual) Baso # (Auto) Lymphocytes % (Manual) Monocytes % (Manual) Eosinophils % (Manual) Basophils % (Manual) Seg Neutrophils # Seg Neutrophils # Man Lymphocytes # (Manual) Monocytes # (Manual) Eosinophils # (Manual) Nucleated RBC % Basophils # (Manual) PT INR APTT Heparin Anti-Xa Level ABG pH POC ABG pO2 ABG pO2 ABG HCO3 ABG O2 Saturation ABG Base Excess POC ABG pCO2 ABG Hemoglobin ABG Oxyhemoglobin ABG Chloride ABG Glucose Oxyhemoglobin Sodium Potassium Chloride Carbon Dioxide BUN Creatinine Glucose POC Glucose 148 H 163 H 175 H Lactic Acid Calcium Phosphorus Magnesium AST ALT Lactate Dehydrogenase Total Bilirubin Direct Bilirubin CK-MB (CK-2) C-Reactive Protein NT-Pro-B Natriuret Pep Total Protein Albumin Arterial Blood Glucose Urine WBC (Auto) Urine Creatinine 01/23/20 01/23/20 01/24/20 17:28 23:56 04:30 WBC RBC 3.46 L Hgb 8.8 L Hct 27.8 L MCHC RDW 18.2 H MCV 81 L MCH 25 L Lymph % (Auto) Gordon % (Auto) 7.8 H Gordon # Eos # Lymph # (Auto) Gordon # (Auto) Eos # (Auto) Seg Neutrophils % Seg Neuts % (Manual) Baso # (Auto) Lymphocytes % (Manual) Monocytes % (Manual) Eosinophils % (Manual) Basophils % (Manual) Seg Neutrophils # Seg Neutrophils # Man Lymphocytes # (Manual) Monocytes # (Manual) Eosinophils # (Manual) Nucleated RBC % Basophils # (Manual) PT INR APTT Heparin Anti-Xa Level ABG pH POC ABG pO2 ABG pO2 ABG HCO3 ABG O2 Saturation ABG Base Excess POC ABG pCO2 ABG Hemoglobin ABG Oxyhemoglobin ABG Chloride ABG Glucose Oxyhemoglobin Sodium Potassium Chloride Carbon Dioxide BUN Creatinine Glucose POC Glucose 165 H 177 H Lactic Acid Calcium Phosphorus Magnesium AST ALT Lactate Dehydrogenase Total Bilirubin Direct Bilirubin CK-MB (CK-2) C-Reactive Protein NT-Pro-B Natriuret Pep Total Protein Albumin Arterial Blood Glucose Urine WBC (Auto) Urine Creatinine 01/24/20 01/24/20 01/24/20 04:30 07:18 12:06 WBC RBC Hgb Hct MCHC RDW MCV MCH Lymph % (Auto) Gordon % (Auto) Gordon # Eos # Lymph # (Auto) Gordon # (Auto) Eos # (Auto) Seg Neutrophils % Seg Neuts % (Manual) Baso # (Auto) Lymphocytes % (Manual) Monocytes % (Manual) Eosinophils % (Manual) Basophils % (Manual) Seg Neutrophils # Seg Neutrophils # Man Lymphocytes # (Manual) Monocytes # (Manual) Eosinophils # (Manual) Nucleated RBC % Basophils # (Manual) PT INR APTT Heparin Anti-Xa Level ABG pH POC ABG pO2 ABG pO2 ABG HCO3 ABG O2 Saturation ABG Base Excess POC ABG pCO2 ABG Hemoglobin ABG Oxyhemoglobin ABG Chloride ABG Glucose Oxyhemoglobin Sodium Potassium Chloride 97.9 L Carbon Dioxide BUN 31 H Creatinine Glucose 146 H POC Glucose 151 H 133 H Lactic Acid Calcium Phosphorus Magnesium AST ALT Lactate Dehydrogenase Total Bilirubin Direct Bilirubin CK-MB (CK-2) C-Reactive Protein NT-Pro-B Natriuret Pep Total Protein Albumin Arterial Blood Glucose Urine WBC (Auto) Urine Creatinine 01/24/20 01/25/20 01/25/20 17:36 00:08 04:25 WBC RBC 3.50 L Hgb 8.7 L Hct 27.9 L MCHC 31 L RDW 18.2 H MCV 80 L MCH 25 L Lymph % (Auto) Gordon % (Auto) 8.5 H Gordon # Eos # Lymph # (Auto) Gordon # (Auto) Eos # (Auto) Seg Neutrophils % Seg Neuts % (Manual) Baso # (Auto) Lymphocytes % (Manual) Monocytes % (Manual) Eosinophils % (Manual) Basophils % (Manual) Seg Neutrophils # Seg Neutrophils # Man Lymphocytes # (Manual) Monocytes # (Manual) Eosinophils # (Manual) Nucleated RBC % Basophils # (Manual) PT INR APTT Heparin Anti-Xa Level ABG pH POC ABG pO2 ABG pO2 ABG HCO3 ABG O2 Saturation ABG Base Excess POC ABG pCO2 ABG Hemoglobin ABG Oxyhemoglobin ABG Chloride ABG Glucose Oxyhemoglobin Sodium Potassium Chloride Carbon Dioxide BUN Creatinine Glucose POC Glucose 133 H 129 H Lactic Acid Calcium Phosphorus Magnesium AST ALT Lactate Dehydrogenase Total Bilirubin Direct Bilirubin CK-MB (CK-2) C-Reactive Protein NT-Pro-B Natriuret Pep Total Protein Albumin Arterial Blood Glucose Urine WBC (Auto) Urine Creatinine 01/25/20 01/25/20 01/25/20 04:25 05:38 11:52 WBC RBC Hgb Hct MCHC RDW MCV MCH Lymph % (Auto) Gordon % (Auto) Gordon # Eos # Lymph # (Auto) Gordon # (Auto) Eos # (Auto) Seg Neutrophils % Seg Neuts % (Manual) Baso # (Auto) Lymphocytes % (Manual) Monocytes % (Manual) Eosinophils % (Manual) Basophils % (Manual) Seg Neutrophils # Seg Neutrophils # Man Lymphocytes # (Manual) Monocytes # (Manual) Eosinophils # (Manual) Nucleated RBC % Basophils # (Manual) PT INR APTT Heparin Anti-Xa Level ABG pH POC ABG pO2 ABG pO2 ABG HCO3 ABG O2 Saturation ABG Base Excess POC ABG pCO2 ABG Hemoglobin ABG Oxyhemoglobin ABG Chloride ABG Glucose Oxyhemoglobin Sodium Potassium Chloride Carbon Dioxide BUN 30 H Creatinine Glucose 134 H POC Glucose 129 H 134 H Lactic Acid Calcium Phosphorus Magnesium AST ALT Lactate Dehydrogenase Total Bilirubin Direct Bilirubin CK-MB (CK-2) C-Reactive Protein NT-Pro-B Natriuret Pep Total Protein Albumin Arterial Blood Glucose Urine WBC (Auto) Urine Creatinine 01/25/20 01/25/20 01/26/20 17:13 21:02 00:59 WBC RBC Hgb Hct MCHC RDW MCV MCH Lymph % (Auto) Gordon % (Auto) Gordon # Eos # Lymph # (Auto) Gordon # (Auto) Eos # (Auto) Seg Neutrophils % Seg Neuts % (Manual) Baso # (Auto) Lymphocytes % (Manual) Monocytes % (Manual) Eosinophils % (Manual) Basophils % (Manual) Seg Neutrophils # Seg Neutrophils # Man Lymphocytes # (Manual) Monocytes # (Manual) Eosinophils # (Manual) Nucleated RBC % Basophils # (Manual) PT INR APTT Heparin Anti-Xa Level ABG pH POC ABG pO2 ABG pO2 57.5 L ABG HCO3 31.7 H ABG O2 Saturation 90.3 L ABG Base Excess 6.6 H POC ABG pCO2 ABG Hemoglobin 13.0 L ABG Oxyhemoglobin ABG Chloride ABG Glucose Oxyhemoglobin 87.5 L Sodium Potassium Chloride Carbon Dioxide BUN Creatinine Glucose POC Glucose 124 H 196 H Lactic Acid Calcium Phosphorus Magnesium AST ALT Lactate Dehydrogenase Total Bilirubin Direct Bilirubin CK-MB (CK-2) C-Reactive Protein NT-Pro-B Natriuret Pep Total Protein Albumin Arterial Blood Glucose Urine WBC (Auto) Urine Creatinine 01/26/20 01/26/20 01/26/20 03:20 05:46 12:46 WBC RBC Hgb 9.2 L Hct 29.4 L MCHC RDW MCV MCH Lymph % (Auto) Gordon % (Auto) Gordon # Eos # Lymph # (Auto) Gordon # (Auto) Eos # (Auto) Seg Neutrophils % Seg Neuts % (Manual) Baso # (Auto) Lymphocytes % (Manual) Monocytes % (Manual) Eosinophils % (Manual) Basophils % (Manual) Seg Neutrophils # Seg Neutrophils # Man Lymphocytes # (Manual) Monocytes # (Manual) Eosinophils # (Manual) Nucleated RBC % Basophils # (Manual) PT INR APTT Heparin Anti-Xa Level ABG pH POC ABG pO2 ABG pO2 ABG HCO3 ABG O2 Saturation ABG Base Excess POC ABG pCO2 ABG Hemoglobin ABG Oxyhemoglobin ABG Chloride ABG Glucose Oxyhemoglobin Sodium Potassium Chloride Carbon Dioxide BUN Creatinine Glucose POC Glucose 141 H 122 H Lactic Acid Calcium Phosphorus Magnesium AST ALT Lactate Dehydrogenase Total Bilirubin Direct Bilirubin CK-MB (CK-2) C-Reactive Protein NT-Pro-B Natriuret Pep Total Protein Albumin Arterial Blood Glucose Urine WBC (Auto) Urine Creatinine 01/26/20 01/26/20 01/27/20 18:03 23:55 04:47 WBC RBC Hgb Hct MCHC RDW MCV MCH Lymph % (Auto) Gordon % (Auto) Gordon # Eos # Lymph # (Auto) Gordon # (Auto) Eos # (Auto) Seg Neutrophils % Seg Neuts % (Manual) Baso # (Auto) Lymphocytes % (Manual) Monocytes % (Manual) Eosinophils % (Manual) Basophils % (Manual) Seg Neutrophils # Seg Neutrophils # Man Lymphocytes # (Manual) Monocytes # (Manual) Eosinophils # (Manual) Nucleated RBC % Basophils # (Manual) PT INR APTT Heparin Anti-Xa Level ABG pH POC ABG pO2 ABG pO2 ABG HCO3 ABG O2 Saturation ABG Base Excess POC ABG pCO2 ABG Hemoglobin ABG Oxyhemoglobin ABG Chloride ABG Glucose Oxyhemoglobin Sodium Potassium Chloride Carbon Dioxide BUN 30 H Creatinine 0.7 L Glucose 135 H POC Glucose 142 H 159 H Lactic Acid Calcium Phosphorus Magnesium AST ALT Lactate Dehydrogenase Total Bilirubin Direct Bilirubin CK-MB (CK-2) C-Reactive Protein NT-Pro-B Natriuret Pep Total Protein Albumin Arterial Blood Glucose Urine WBC (Auto) Urine Creatinine 01/27/20 01/27/20 01/27/20 05:43 12:06 17:16 WBC RBC Hgb Hct MCHC RDW MCV MCH Lymph % (Auto) Gordon % (Auto) Gordon # Eos # Lymph # (Auto) Gordon # (Auto) Eos # (Auto) Seg Neutrophils % Seg Neuts % (Manual) Baso # (Auto) Lymphocytes % (Manual) Monocytes % (Manual) Eosinophils % (Manual) Basophils % (Manual) Seg Neutrophils # Seg Neutrophils # Man Lymphocytes # (Manual) Monocytes # (Manual) Eosinophils # (Manual) Nucleated RBC % Basophils # (Manual) PT INR APTT Heparin Anti-Xa Level ABG pH POC ABG pO2 ABG pO2 ABG HCO3 ABG O2 Saturation ABG Base Excess POC ABG pCO2 ABG Hemoglobin ABG Oxyhemoglobin ABG Chloride ABG Glucose Oxyhemoglobin Sodium Potassium Chloride Carbon Dioxide BUN Creatinine Glucose POC Glucose 143 H 142 H 128 H Lactic Acid Calcium Phosphorus Magnesium AST ALT Lactate Dehydrogenase Total Bilirubin Direct Bilirubin CK-MB (CK-2) C-Reactive Protein NT-Pro-B Natriuret Pep Total Protein Albumin Arterial Blood Glucose Urine WBC (Auto) Urine Creatinine 01/27/20 01/28/20 01/28/20 23:55 04:37 05:55 WBC RBC Hgb 9.4 L Hct 29.9 L MCHC RDW MCV MCH Lymph % (Auto) Gordon % (Auto) Gordon # Eos # Lymph # (Auto) Gordon # (Auto) Eos # (Auto) Seg Neutrophils % Seg Neuts % (Manual) Baso # (Auto) Lymphocytes % (Manual) Monocytes % (Manual) Eosinophils % (Manual) Basophils % (Manual) Seg Neutrophils # Seg Neutrophils # Man Lymphocytes # (Manual) Monocytes # (Manual) Eosinophils # (Manual) Nucleated RBC % Basophils # (Manual) PT INR APTT Heparin Anti-Xa Level ABG pH POC ABG pO2 ABG pO2 ABG HCO3 ABG O2 Saturation ABG Base Excess POC ABG pCO2 ABG Hemoglobin ABG Oxyhemoglobin ABG Chloride ABG Glucose Oxyhemoglobin Sodium Potassium Chloride Carbon Dioxide BUN Creatinine Glucose POC Glucose 166 H 169 H Lactic Acid Calcium Phosphorus Magnesium AST ALT Lactate Dehydrogenase Total Bilirubin Direct Bilirubin CK-MB (CK-2) C-Reactive Protein NT-Pro-B Natriuret Pep Total Protein Albumin Arterial Blood Glucose Urine WBC (Auto) Urine Creatinine 01/28/20 01/28/20 01/28/20 11:58 17:26 23:46 WBC RBC Hgb Hct MCHC RDW MCV MCH Lymph % (Auto) Gordon % (Auto) Gordon # Eos # Lymph # (Auto) Gordon # (Auto) Eos # (Auto) Seg Neutrophils % Seg Neuts % (Manual) Baso # (Auto) Lymphocytes % (Manual) Monocytes % (Manual) Eosinophils % (Manual) Basophils % (Manual) Seg Neutrophils # Seg Neutrophils # Man Lymphocytes # (Manual) Monocytes # (Manual) Eosinophils # (Manual) Nucleated RBC % Basophils # (Manual) PT INR APTT Heparin Anti-Xa Level ABG pH POC ABG pO2 ABG pO2 ABG HCO3 ABG O2 Saturation ABG Base Excess POC ABG pCO2 ABG Hemoglobin ABG Oxyhemoglobin ABG Chloride ABG Glucose Oxyhemoglobin Sodium Potassium Chloride Carbon Dioxide BUN Creatinine Glucose POC Glucose 130 H 126 H 150 H Lactic Acid Calcium Phosphorus Magnesium AST ALT Lactate Dehydrogenase Total Bilirubin Direct Bilirubin CK-MB (CK-2) C-Reactive Protein NT-Pro-B Natriuret Pep Total Protein Albumin Arterial Blood Glucose Urine WBC (Auto) Urine Creatinine 01/29/20 01/29/20 01/29/20 04:55 06:00 12:28 WBC RBC Hgb Hct MCHC RDW MCV MCH Lymph % (Auto) Gordon % (Auto) Gordon # Eos # Lymph # (Auto) Gordon # (Auto) Eos # (Auto) Seg Neutrophils % Seg Neuts % (Manual) Baso # (Auto) Lymphocytes % (Manual) Monocytes % (Manual) Eosinophils % (Manual) Basophils % (Manual) Seg Neutrophils # Seg Neutrophils # Man Lymphocytes # (Manual) Monocytes # (Manual) Eosinophils # (Manual) Nucleated RBC % Basophils # (Manual) PT INR APTT Heparin Anti-Xa Level ABG pH POC ABG pO2 ABG pO2 ABG HCO3 ABG O2 Saturation ABG Base Excess POC ABG pCO2 ABG Hemoglobin ABG Oxyhemoglobin ABG Chloride ABG Glucose Oxyhemoglobin Sodium Potassium Chloride Carbon Dioxide 34 H BUN Creatinine 0.6 L Glucose 152 H POC Glucose 157 H 156 H Lactic Acid Calcium Phosphorus Magnesium AST ALT Lactate Dehydrogenase Total Bilirubin Direct Bilirubin CK-MB (CK-2) C-Reactive Protein NT-Pro-B Natriuret Pep Total Protein Albumin Arterial Blood Glucose Urine WBC (Auto) Urine Creatinine 01/29/20 01/30/20 01/30/20 19:06 00:29 05:39 WBC RBC Hgb Hct MCHC RDW MCV MCH Lymph % (Auto) Gordon % (Auto) Gordon # Eos # Lymph # (Auto) Gordon # (Auto) Eos # (Auto) Seg Neutrophils % Seg Neuts % (Manual) Baso # (Auto) Lymphocytes % (Manual) Monocytes % (Manual) Eosinophils % (Manual) Basophils % (Manual) Seg Neutrophils # Seg Neutrophils # Man Lymphocytes # (Manual) Monocytes # (Manual) Eosinophils # (Manual) Nucleated RBC % Basophils # (Manual) PT INR APTT Heparin Anti-Xa Level ABG pH POC ABG pO2 ABG pO2 ABG HCO3 ABG O2 Saturation ABG Base Excess POC ABG pCO2 ABG Hemoglobin ABG Oxyhemoglobin ABG Chloride ABG Glucose Oxyhemoglobin Sodium Potassium Chloride Carbon Dioxide BUN Creatinine Glucose POC Glucose 152 H 132 H 159 H Lactic Acid Calcium Phosphorus Magnesium AST ALT Lactate Dehydrogenase Total Bilirubin Direct Bilirubin CK-MB (CK-2) C-Reactive Protein NT-Pro-B Natriuret Pep Total Protein Albumin Arterial Blood Glucose Urine WBC (Auto) Urine Creatinine 01/30/20 01/30/20 01/30/20 12:27 17:42 23:28 WBC RBC Hgb Hct MCHC RDW MCV MCH Lymph % (Auto) Gordon % (Auto) Gordon # Eos # Lymph # (Auto) Gordon # (Auto) Eos # (Auto) Seg Neutrophils % Seg Neuts % (Manual) Baso # (Auto) Lymphocytes % (Manual) Monocytes % (Manual) Eosinophils % (Manual) Basophils % (Manual) Seg Neutrophils # Seg Neutrophils # Man Lymphocytes # (Manual) Monocytes # (Manual) Eosinophils # (Manual) Nucleated RBC % Basophils # (Manual) PT INR APTT Heparin Anti-Xa Level ABG pH POC ABG pO2 ABG pO2 ABG HCO3 ABG O2 Saturation ABG Base Excess POC ABG pCO2 ABG Hemoglobin ABG Oxyhemoglobin ABG Chloride ABG Glucose Oxyhemoglobin Sodium Potassium Chloride Carbon Dioxide BUN Creatinine Glucose POC Glucose 151 H 144 H 164 H Lactic Acid Calcium Phosphorus Magnesium AST ALT Lactate Dehydrogenase Total Bilirubin Direct Bilirubin CK-MB (CK-2) C-Reactive Protein NT-Pro-B Natriuret Pep Total Protein Albumin Arterial Blood Glucose Urine WBC (Auto) Urine Creatinine 01/31/20 01/31/20 01/31/20 05:51 11:51 18:06 WBC RBC Hgb Hct MCHC RDW MCV MCH Lymph % (Auto) Gordon % (Auto) Gordon # Eos # Lymph # (Auto) Gordon # (Auto) Eos # (Auto) Seg Neutrophils % Seg Neuts % (Manual) Baso # (Auto) Lymphocytes % (Manual) Monocytes % (Manual) Eosinophils % (Manual) Basophils % (Manual) Seg Neutrophils # Seg Neutrophils # Man Lymphocytes # (Manual) Monocytes # (Manual) Eosinophils # (Manual) Nucleated RBC % Basophils # (Manual) PT INR APTT Heparin Anti-Xa Level ABG pH POC ABG pO2 ABG pO2 ABG HCO3 ABG O2 Saturation ABG Base Excess POC ABG pCO2 ABG Hemoglobin ABG Oxyhemoglobin ABG Chloride ABG Glucose Oxyhemoglobin Sodium Potassium Chloride Carbon Dioxide BUN Creatinine Glucose POC Glucose 131 H 167 H 210 H Lactic Acid Calcium Phosphorus Magnesium AST ALT Lactate Dehydrogenase Total Bilirubin Direct Bilirubin CK-MB (CK-2) C-Reactive Protein NT-Pro-B Natriuret Pep Total Protein Albumin Arterial Blood Glucose Urine WBC (Auto) Urine Creatinine 01/31/20 01/31/20 02/01/20 19:24 Unknown 00:34 WBC RBC Hgb Hct MCHC RDW MCV MCH Lymph % (Auto) Gordon % (Auto) Gordon # Eos # Lymph # (Auto) Gordon # (Auto) Eos # (Auto) Seg Neutrophils % Seg Neuts % (Manual) Baso # (Auto) Lymphocytes % (Manual) Monocytes % (Manual) Eosinophils % (Manual) Basophils % (Manual) Seg Neutrophils # Seg Neutrophils # Man Lymphocytes # (Manual) Monocytes # (Manual) Eosinophils # (Manual) Nucleated RBC % Basophils # (Manual) PT INR APTT Heparin Anti-Xa Level ABG pH POC ABG pO2 ABG pO2 ABG HCO3 ABG O2 Saturation ABG Base Excess POC ABG pCO2 ABG Hemoglobin ABG Oxyhemoglobin ABG Chloride ABG Glucose Oxyhemoglobin Sodium Potassium Chloride 95.3 L Carbon Dioxide 33 H BUN 36 H Creatinine Glucose 187 H POC Glucose 116 H Lactic Acid Calcium Phosphorus Magnesium AST ALT Lactate Dehydrogenase Total Bilirubin Direct Bilirubin CK-MB (CK-2) C-Reactive Protein NT-Pro-B Natriuret Pep Total Protein Albumin Arterial Blood Glucose Urine WBC (Auto) Urine Creatinine 57.4 H 02/01/20 02/01/20 02/01/20 05:24 10:40 12:29 WBC RBC Hgb Hct MCHC RDW MCV MCH Lymph % (Auto) Gordon % (Auto) Gordon # Eos # Lymph # (Auto) Gordon # (Auto) Eos # (Auto) Seg Neutrophils % Seg Neuts % (Manual) Baso # (Auto) Lymphocytes % (Manual) Monocytes % (Manual) Eosinophils % (Manual) Basophils % (Manual) Seg Neutrophils # Seg Neutrophils # Man Lymphocytes # (Manual) Monocytes # (Manual) Eosinophils # (Manual) Nucleated RBC % Basophils # (Manual) PT INR APTT Heparin Anti-Xa Level ABG pH POC ABG pO2 ABG pO2 ABG HCO3 ABG O2 Saturation ABG Base Excess POC ABG pCO2 ABG Hemoglobin ABG Oxyhemoglobin ABG Chloride ABG Glucose Oxyhemoglobin Sodium Potassium Chloride Carbon Dioxide BUN Creatinine Glucose POC Glucose 142 H 165 H 151 H Lactic Acid Calcium Phosphorus Magnesium AST ALT Lactate Dehydrogenase Total Bilirubin Direct Bilirubin CK-MB (CK-2) C-Reactive Protein NT-Pro-B Natriuret Pep Total Protein Albumin Arterial Blood Glucose Urine WBC (Auto) Urine Creatinine 02/01/20 02/01/20 02/02/20 17:16 23:23 06:36 WBC RBC Hgb Hct MCHC RDW MCV MCH Lymph % (Auto) Gordon % (Auto) Gordon # Eos # Lymph # (Auto) Gordon # (Auto) Eos # (Auto) Seg Neutrophils % Seg Neuts % (Manual) Baso # (Auto) Lymphocytes % (Manual) Monocytes % (Manual) Eosinophils % (Manual) Basophils % (Manual) Seg Neutrophils # Seg Neutrophils # Man Lymphocytes # (Manual) Monocytes # (Manual) Eosinophils # (Manual) Nucleated RBC % Basophils # (Manual) PT INR APTT Heparin Anti-Xa Level ABG pH POC ABG pO2 ABG pO2 ABG HCO3 ABG O2 Saturation ABG Base Excess POC ABG pCO2 ABG Hemoglobin ABG Oxyhemoglobin ABG Chloride ABG Glucose Oxyhemoglobin Sodium Potassium Chloride Carbon Dioxide BUN Creatinine Glucose POC Glucose 137 H 145 H 181 H Lactic Acid Calcium Phosphorus Magnesium AST ALT Lactate Dehydrogenase Total Bilirubin Direct Bilirubin CK-MB (CK-2) C-Reactive Protein NT-Pro-B Natriuret Pep Total Protein Albumin Arterial Blood Glucose Urine WBC (Auto) Urine Creatinine 02/02/20 02/02/20 02/02/20 10:01 12:05 17:54 WBC RBC Hgb Hct MCHC RDW MCV MCH Lymph % (Auto) Gordon % (Auto) Gordon # Eos # Lymph # (Auto) Gordon # (Auto) Eos # (Auto) Seg Neutrophils % Seg Neuts % (Manual) Baso # (Auto) Lymphocytes % (Manual) Monocytes % (Manual) Eosinophils % (Manual) Basophils % (Manual) Seg Neutrophils # Seg Neutrophils # Man Lymphocytes # (Manual) Monocytes # (Manual) Eosinophils # (Manual) Nucleated RBC % Basophils # (Manual) PT INR APTT Heparin Anti-Xa Level ABG pH POC ABG pO2 ABG pO2 ABG HCO3 ABG O2 Saturation ABG Base Excess POC ABG pCO2 ABG Hemoglobin ABG Oxyhemoglobin ABG Chloride ABG Glucose Oxyhemoglobin Sodium Potassium Chloride 95.3 L Carbon Dioxide BUN 44 H Creatinine Glucose 234 H POC Glucose 184 H 127 H Lactic Acid Calcium Phosphorus Magnesium AST 363 H ALT 457 H Lactate Dehydrogenase Total Bilirubin Direct Bilirubin CK-MB (CK-2) C-Reactive Protein NT-Pro-B Natriuret Pep Total Protein Albumin 3.0 L Arterial Blood Glucose Urine WBC (Auto) Urine Creatinine 02/02/20 02/03/20 02/03/20 23:47 05:32 07:04 WBC 13.0 H RBC Hgb 9.5 L Hct 30.8 L MCHC 31 L RDW 19.6 H MCV 81 L MCH 25 L Lymph % (Auto) Gordon % (Auto) 9.4 H Gordon # Eos # Lymph # (Auto) Gordon # (Auto) 1.2 H Eos # (Auto) Seg Neutrophils % 72.3 H Seg Neuts % (Manual) Baso # (Auto) Lymphocytes % (Manual) Monocytes % (Manual) Eosinophils % (Manual) Basophils % (Manual) Seg Neutrophils # 9.4 H Seg Neutrophils # Man Lymphocytes # (Manual) Monocytes # (Manual) Eosinophils # (Manual) Nucleated RBC % Basophils # (Manual) PT INR APTT Heparin Anti-Xa Level ABG pH POC ABG pO2 ABG pO2 ABG HCO3 ABG O2 Saturation ABG Base Excess POC ABG pCO2 ABG Hemoglobin ABG Oxyhemoglobin ABG Chloride ABG Glucose Oxyhemoglobin Sodium Potassium Chloride Carbon Dioxide BUN Creatinine Glucose POC Glucose 124 H 129 H Lactic Acid Calcium Phosphorus Magnesium AST ALT Lactate Dehydrogenase Total Bilirubin Direct Bilirubin CK-MB (CK-2) C-Reactive Protein NT-Pro-B Natriuret Pep Total Protein Albumin Arterial Blood Glucose Urine WBC (Auto) Urine Creatinine 02/03/20 02/03/20 02/03/20 07:04 11:32 12:49 WBC RBC Hgb Hct MCHC RDW MCV MCH Lymph % (Auto) Gordon % (Auto) Gordon # Eos # Lymph # (Auto) Gordon # (Auto) Eos # (Auto) Seg Neutrophils % Seg Neuts % (Manual) Baso # (Auto) Lymphocytes % (Manual) Monocytes % (Manual) Eosinophils % (Manual) Basophils % (Manual) Seg Neutrophils # Seg Neutrophils # Man Lymphocytes # (Manual) Monocytes # (Manual) Eosinophils # (Manual) Nucleated RBC % Basophils # (Manual) PT INR APTT Heparin Anti-Xa Level ABG pH POC ABG pO2 ABG pO2 ABG HCO3 ABG O2 Saturation ABG Base Excess POC ABG pCO2 ABG Hemoglobin ABG Oxyhemoglobin ABG Chloride ABG Glucose Oxyhemoglobin Sodium Potassium Chloride 97.9 L Carbon Dioxide 33 H BUN 39 H Creatinine Glucose 119 H POC Glucose 138 H Lactic Acid Calcium Phosphorus Magnesium 2.60 H AST ALT Lactate Dehydrogenase Total Bilirubin Direct Bilirubin CK-MB (CK-2) C-Reactive Protein NT-Pro-B Natriuret Pep Total Protein Albumin Arterial Blood Glucose Urine WBC (Auto) Urine Creatinine 02/03/20 02/04/20 02/04/20 18:28 16:24 16:24 WBC RBC 3.38 L Hgb 8.6 L Hct 26.9 L MCHC RDW 19.5 H MCV 80 L MCH 26 L Lymph % (Auto) Gordon % (Auto) Gordon # Eos # Lymph # (Auto) Gordon # (Auto) Eos # (Auto) Seg Neutrophils % Seg Neuts % (Manual) Baso # (Auto) Lymphocytes % (Manual) Monocytes % (Manual) Eosinophils % (Manual) Basophils % (Manual) Seg Neutrophils # Seg Neutrophils # Man Lymphocytes # (Manual) Monocytes # (Manual) Eosinophils # (Manual) Nucleated RBC % Basophils # (Manual) PT INR APTT Heparin Anti-Xa Level ABG pH POC ABG pO2 ABG pO2 ABG HCO3 ABG O2 Saturation ABG Base Excess POC ABG pCO2 ABG Hemoglobin ABG Oxyhemoglobin ABG Chloride ABG Glucose Oxyhemoglobin Sodium Potassium 3.4 L Chloride Carbon Dioxide 31 H BUN 37 H Creatinine Glucose 70 L POC Glucose 118 H Lactic Acid Calcium Phosphorus Magnesium AST 169 H ALT 394 H Lactate Dehydrogenase Total Bilirubin 1.50 H Direct Bilirubin CK-MB (CK-2) C-Reactive Protein NT-Pro-B Natriuret Pep Total Protein Albumin 2.9 L Arterial Blood Glucose Urine WBC (Auto) Urine Creatinine 02/05/20 02/05/20 02/05/20 00:41 06:37 17:14 WBC RBC Hgb Hct MCHC RDW MCV MCH Lymph % (Auto) Gordon % (Auto) Gordon # Eos # Lymph # (Auto) Gordon # (Auto) Eos # (Auto) Seg Neutrophils % Seg Neuts % (Manual) Baso # (Auto) Lymphocytes % (Manual) Monocytes % (Manual) Eosinophils % (Manual) Basophils % (Manual) Seg Neutrophils # Seg Neutrophils # Man Lymphocytes # (Manual) Monocytes # (Manual) Eosinophils # (Manual) Nucleated RBC % Basophils # (Manual) PT INR APTT Heparin Anti-Xa Level ABG pH POC ABG pO2 ABG pO2 ABG HCO3 ABG O2 Saturation ABG Base Excess POC ABG pCO2 ABG Hemoglobin ABG Oxyhemoglobin ABG Chloride ABG Glucose Oxyhemoglobin Sodium Potassium 3.1 L Chloride Carbon Dioxide 35 H BUN 32 H Creatinine 0.7 L Glucose POC Glucose 69 L 127 H Lactic Acid Calcium Phosphorus Magnesium AST 134 H ALT 352 H Lactate Dehydrogenase Total Bilirubin 1.60 H Direct Bilirubin CK-MB (CK-2) C-Reactive Protein NT-Pro-B Natriuret Pep Total Protein Albumin 2.9 L Arterial Blood Glucose Urine WBC (Auto) Urine Creatinine 02/05/20 02/06/20 02/06/20 23:43 05:32 08:01 WBC RBC Hgb Hct MCHC RDW MCV MCH Lymph % (Auto) Gordon % (Auto) Gordon # Eos # Lymph # (Auto) Gordon # (Auto) Eos # (Auto) Seg Neutrophils % Seg Neuts % (Manual) Baso # (Auto) Lymphocytes % (Manual) Monocytes % (Manual) Eosinophils % (Manual) Basophils % (Manual) Seg Neutrophils # Seg Neutrophils # Man Lymphocytes # (Manual) Monocytes # (Manual) Eosinophils # (Manual) Nucleated RBC % Basophils # (Manual) PT INR APTT Heparin Anti-Xa Level ABG pH POC ABG pO2 ABG pO2 ABG HCO3 ABG O2 Saturation ABG Base Excess POC ABG pCO2 ABG Hemoglobin ABG Oxyhemoglobin ABG Chloride ABG Glucose Oxyhemoglobin Sodium Potassium Chloride Carbon Dioxide BUN 40 H Creatinine Glucose 132 H POC Glucose 129 H 131 H Lactic Acid Calcium Phosphorus Magnesium AST ALT Lactate Dehydrogenase Total Bilirubin Direct Bilirubin CK-MB (CK-2) C-Reactive Protein NT-Pro-B Natriuret Pep Total Protein Albumin Arterial Blood Glucose Urine WBC (Auto) Urine Creatinine 02/06/20 02/06/20 02/06/20 11:51 16:28 17:32 WBC RBC Hgb Hct MCHC RDW MCV MCH Lymph % (Auto) Gordon % (Auto) Gordon # Eos # Lymph # (Auto) Gordon # (Auto) Eos # (Auto) Seg Neutrophils % Seg Neuts % (Manual) Baso # (Auto) Lymphocytes % (Manual) Monocytes % (Manual) Eosinophils % (Manual) Basophils % (Manual) Seg Neutrophils # Seg Neutrophils # Man Lymphocytes # (Manual) Monocytes # (Manual) Eosinophils # (Manual) Nucleated RBC % Basophils # (Manual) PT INR APTT Heparin Anti-Xa Level ABG pH POC ABG pO2 ABG pO2 ABG HCO3 ABG O2 Saturation ABG Base Excess POC ABG pCO2 ABG Hemoglobin ABG Oxyhemoglobin ABG Chloride ABG Glucose Oxyhemoglobin Sodium Potassium Chloride Carbon Dioxide BUN Creatinine Glucose POC Glucose 167 H 129 H Lactic Acid Calcium Phosphorus Magnesium AST 824 H ALT 948 H Lactate Dehydrogenase Total Bilirubin 1.70 H Direct Bilirubin 1.2 H CK-MB (CK-2) C-Reactive Protein NT-Pro-B Natriuret Pep Total Protein Albumin 2.9 L Arterial Blood Glucose Urine WBC (Auto) Urine Creatinine 02/07/20 02/07/20 02/07/20 00:11 04:57 04:57 WBC RBC Hgb 9.2 L Hct 29.7 L MCHC 31 L RDW 20.2 H MCV 80 L MCH 25 L Lymph % (Auto) Gordon % (Auto) Gordon # Eos # Lymph # (Auto) Gordon # (Auto) Eos # (Auto) Seg Neutrophils % Seg Neuts % (Manual) Baso # (Auto) Lymphocytes % (Manual) Monocytes % (Manual) Eosinophils % (Manual) Basophils % (Manual) Seg Neutrophils # Seg Neutrophils # Man Lymphocytes # (Manual) Monocytes # (Manual) Eosinophils # (Manual) Nucleated RBC % Basophils # (Manual) PT INR APTT Heparin Anti-Xa Level ABG pH POC ABG pO2 ABG pO2 ABG HCO3 ABG O2 Saturation ABG Base Excess POC ABG pCO2 ABG Hemoglobin ABG Oxyhemoglobin ABG Chloride ABG Glucose Oxyhemoglobin Sodium Potassium 3.4 L D Chloride Carbon Dioxide 32 H BUN 39 H Creatinine Glucose 106 H POC Glucose 121 H Lactic Acid Calcium Phosphorus Magnesium AST ALT Lactate Dehydrogenase Total Bilirubin Direct Bilirubin CK-MB (CK-2) C-Reactive Protein NT-Pro-B Natriuret Pep Total Protein Albumin Arterial Blood Glucose Urine WBC (Auto) Urine Creatinine 02/07/20 02/07/20 02/07/20 15:03 15:03 17:11 WBC RBC Hgb Hct MCHC RDW MCV MCH Lymph % (Auto) Gordon % (Auto) Gordon # Eos # Lymph # (Auto) Gordon # (Auto) Eos # (Auto) Seg Neutrophils % Seg Neuts % (Manual) Baso # (Auto) Lymphocytes % (Manual) Monocytes % (Manual) Eosinophils % (Manual) Basophils % (Manual) Seg Neutrophils # Seg Neutrophils # Man Lymphocytes # (Manual) Monocytes # (Manual) Eosinophils # (Manual) Nucleated RBC % Basophils # (Manual) PT 27.0 H INR 2.46 H APTT Heparin Anti-Xa Level ABG pH POC ABG pO2 ABG pO2 ABG HCO3 ABG O2 Saturation ABG Base Excess POC ABG pCO2 ABG Hemoglobin ABG Oxyhemoglobin ABG Chloride ABG Glucose Oxyhemoglobin Sodium Potassium Chloride Carbon Dioxide BUN Creatinine Glucose POC Glucose 109 H Lactic Acid Calcium Phosphorus Magnesium AST 424 H ALT 796 H Lactate Dehydrogenase Total Bilirubin 1.60 H Direct Bilirubin 1.2 H CK-MB (CK-2) C-Reactive Protein NT-Pro-B Natriuret Pep Total Protein Albumin 2.9 L Arterial Blood Glucose Urine WBC (Auto) Urine Creatinine 02/08/20 02/08/2002/07/20 12:14 17:44 19:00 WBC RBC Hgb Hct MCHC RDW MCV MCH Lymph % (Auto) Gordon % (Auto) Gordon # Eos # Lymph # (Auto) Gordon # (Auto) Eos # (Auto) Seg Neutrophils % Seg Neuts % (Manual) Baso # (Auto) Lymphocytes % (Manual) Monocytes % (Manual) Eosinophils % (Manual) Basophils % (Manual) Seg Neutrophils # Seg Neutrophils # Man Lymphocytes # (Manual) Monocytes # (Manual) Eosinophils # (Manual) Nucleated RBC % Basophils # (Manual) PT INR APTT Heparin Anti-Xa Level ABG pH POC ABG pO2 ABG pO2 ABG HCO3 ABG O2 Saturation ABG Base Excess POC ABG pCO2 ABG Hemoglobin ABG Oxyhemoglobin ABG Chloride ABG Glucose Oxyhemoglobin Sodium Potassium Chloride Carbon Dioxide BUN Creatinine Glucose POC Glucose 111 H 107 H Lactic Acid Calcium Phosphorus Magnesium AST 309 H ALT 650 H Lactate Dehydrogenase Total Bilirubin 1.30 H Direct Bilirubin 0.9 H CK-MB (CK-2) C-Reactive Protein NT-Pro-B Natriuret Pep Total Protein 6.2 L Albumin 2.7 L Arterial Blood Glucose Urine WBC (Auto) Urine Creatinine 02/09/20 02/09/20 02/09/20 05:41 12:28 18:07 WBC RBC Hgb Hct MCHC RDW MCV MCH Lymph % (Auto) Gordon % (Auto) Gordon # Eos # Lymph # (Auto) Gordon # (Auto) Eos # (Auto) Seg Neutrophils % Seg Neuts % (Manual) Baso # (Auto) Lymphocytes % (Manual) Monocytes % (Manual) Eosinophils % (Manual) Basophils % (Manual) Seg Neutrophils # Seg Neutrophils # Man Lymphocytes # (Manual) Monocytes # (Manual) Eosinophils # (Manual) Nucleated RBC % Basophils # (Manual) PT INR APTT Heparin Anti-Xa Level ABG pH POC ABG pO2 ABG pO2 ABG HCO3 ABG O2 Saturation ABG Base Excess POC ABG pCO2 ABG Hemoglobin ABG Oxyhemoglobin ABG Chloride ABG Glucose Oxyhemoglobin Sodium Potassium Chloride Carbon Dioxide BUN Creatinine Glucose POC Glucose 113 H 140 H 143 H Lactic Acid Calcium Phosphorus Magnesium AST ALT Lactate Dehydrogenase Total Bilirubin Direct Bilirubin CK-MB (CK-2) C-Reactive Protein NT-Pro-B Natriuret Pep Total Protein Albumin Arterial Blood Glucose Urine WBC (Auto) Urine Creatinine 02/09/20 02/09/20 02/10/20 21:40 23:45 06:00 WBC RBC Hgb Hct MCHC RDW MCV MCH Lymph % (Auto) Gordon % (Auto) Gordon # Eos # Lymph # (Auto) Gordon # (Auto) Eos # (Auto) Seg Neutrophils % Seg Neuts % (Manual) Baso # (Auto) Lymphocytes % (Manual) Monocytes % (Manual) Eosinophils % (Manual) Basophils % (Manual) Seg Neutrophils # Seg Neutrophils # Man Lymphocytes # (Manual) Monocytes # (Manual) Eosinophils # (Manual) Nucleated RBC % Basophils # (Manual) PT INR APTT Heparin Anti-Xa Level ABG pH POC ABG pO2 ABG pO2 59.8 L ABG HCO3 33.3 H ABG O2 Saturation 88.9 L ABG Base Excess 7.4 H POC ABG pCO2 ABG Hemoglobin 10.4 L ABG Oxyhemoglobin ABG Chloride ABG Glucose Oxyhemoglobin 86.3 L Sodium Potassium Chloride Carbon Dioxide BUN Creatinine Glucose POC Glucose 127 H 114 H Lactic Acid Calcium Phosphorus Magnesium AST ALT Lactate Dehydrogenase Total Bilirubin Direct Bilirubin CK-MB (CK-2) C-Reactive Protein NT-Pro-B Natriuret Pep Total Protein Albumin Arterial Blood Glucose Urine WBC (Auto) Urine Creatinine 02/10/20 02/10/20 02/10/20 07:40 07:40 13:38 WBC 11.5 H RBC Hgb 10.6 L Hct 34.7 L MCHC 31 L RDW 19.8 H MCV 79 L MCH 24 L Lymph % (Auto) Gordon % (Auto) 9.2 H Gordon # Eos # Lymph # (Auto) Gordon # (Auto) 1.1 H Eos # (Auto) Seg Neutrophils % Seg Neuts % (Manual) Baso # (Auto) Lymphocytes % (Manual) Monocytes % (Manual) Eosinophils % (Manual) Basophils % (Manual) Seg Neutrophils # Seg Neutrophils # Man Lymphocytes # (Manual) Monocytes # (Manual) Eosinophils # (Manual) Nucleated RBC % Basophils # (Manual) PT INR APTT Heparin Anti-Xa Level ABG pH POC ABG pO2 ABG pO2 ABG HCO3 ABG O2 Saturation ABG Base Excess POC ABG pCO2 ABG Hemoglobin ABG Oxyhemoglobin ABG Chloride ABG Glucose Oxyhemoglobin Sodium 151 H Potassium Chloride 107.2 H Carbon Dioxide 36 H BUN 25 H Creatinine 0.7 L Glucose 114 H POC Glucose 116 H Lactic Acid Calcium Phosphorus Magnesium 2.40 H AST ALT Lactate Dehydrogenase Total Bilirubin Direct Bilirubin CK-MB (CK-2) C-Reactive Protein NT-Pro-B Natriuret Pep Total Protein Albumin Arterial Blood Glucose Urine WBC (Auto) Urine Creatinine 02/10/20 02/11/20 02/11/20 17:44 05:47 12:21 WBC RBC Hgb Hct MCHC RDW MCV MCH Lymph % (Auto) Gordon % (Auto) Gordon # Eos # Lymph # (Auto) Gordon # (Auto) Eos # (Auto) Seg Neutrophils % Seg Neuts % (Manual) Baso # (Auto) Lymphocytes % (Manual) Monocytes % (Manual) Eosinophils % (Manual) Basophils % (Manual) Seg Neutrophils # Seg Neutrophils # Man Lymphocytes # (Manual) Monocytes # (Manual) Eosinophils # (Manual) Nucleated RBC % Basophils # (Manual) PT INR APTT Heparin Anti-Xa Level ABG pH POC ABG pO2 ABG pO2 ABG HCO3 ABG O2 Saturation ABG Base Excess POC ABG pCO2 ABG Hemoglobin ABG Oxyhemoglobin ABG Chloride ABG Glucose Oxyhemoglobin Sodium Potassium Chloride Carbon Dioxide BUN Creatinine Glucose POC Glucose 139 H 173 H 143 H Lactic Acid Calcium Phosphorus Magnesium AST ALT Lactate Dehydrogenase Total Bilirubin Direct Bilirubin CK-MB (CK-2) C-Reactive Protein NT-Pro-B Natriuret Pep Total Protein Albumin Arterial Blood Glucose Urine WBC (Auto) Urine Creatinine 02/11/20 02/11/20 02/12/20 13:43 14:11 00:15 WBC RBC Hgb Hct MCHC RDW MCV MCH Lymph % (Auto) Gordon % (Auto) Gordon # Eos # Lymph # (Auto) Gordon # (Auto) Eos # (Auto) Seg Neutrophils % Seg Neuts % (Manual) Baso # (Auto) Lymphocytes % (Manual) Monocytes % (Manual) Eosinophils % (Manual) Basophils % (Manual) Seg Neutrophils # Seg Neutrophils # Man Lymphocytes # (Manual) Monocytes # (Manual) Eosinophils # (Manual) Nucleated RBC % Basophils # (Manual) PT INR APTT Heparin Anti-Xa Level ABG pH 7.502 H POC ABG pO2 77.7 L ABG pO2 ABG HCO3 ABG O2 Saturation ABG Base Excess POC ABG pCO2 ABG Hemoglobin 11.1 L ABG Oxyhemoglobin ABG Chloride 108.0 H ABG Glucose 151 H Oxyhemoglobin Sodium Potassium Chloride Carbon Dioxide BUN Creatinine Glucose POC Glucose 130 H 125 H Lactic Acid Calcium Phosphorus Magnesium AST ALT Lactate Dehydrogenase Total Bilirubin Direct Bilirubin CK-MB (CK-2) C-Reactive Protein NT-Pro-B Natriuret Pep Total Protein Albumin Arterial Blood Glucose 151 H Urine WBC (Auto) Urine Creatinine 02/12/20 02/12/20 02/12/20 04:56 04:56 17:42 WBC RBC Hgb 9.9 L Hct 31.8 L MCHC 31 L RDW 19.4 H MCV 79 L MCH 25 L Lymph % (Auto) Gordon % (Auto) 10.3 H Gordon # Eos # Lymph # (Auto) Gordon # (Auto) 1.0 H Eos # (Auto) Seg Neutrophils % Seg Neuts % (Manual) Baso # (Auto) Lymphocytes % (Manual) Monocytes % (Manual) Eosinophils % (Manual) Basophils % (Manual) Seg Neutrophils # Seg Neutrophils # Man Lymphocytes # (Manual) Monocytes # (Manual) Eosinophils # (Manual) Nucleated RBC % Basophils # (Manual) PT INR APTT Heparin Anti-Xa Level ABG pH POC ABG pO2 ABG pO2 ABG HCO3 ABG O2 Saturation ABG Base Excess POC ABG pCO2 ABG Hemoglobin ABG Oxyhemoglobin ABG Chloride ABG Glucose Oxyhemoglobin Sodium 149 H Potassium Chloride 108.6 H Carbon Dioxide BUN 28 H Creatinine 0.7 L Glucose 108 H POC Glucose 113 H Lactic Acid Calcium Phosphorus Magnesium AST ALT Lactate Dehydrogenase Total Bilirubin Direct Bilirubin CK-MB (CK-2) C-Reactive Protein NT-Pro-B Natriuret Pep Total Protein Albumin Arterial Blood Glucose Urine WBC (Auto) Urine Creatinine 02/13/20 02/13/20 02/13/20 00:39 05:36 12:25 WBC RBC Hgb Hct MCHC RDW MCV MCH Lymph % (Auto) Gordon % (Auto) Gordon # Eos # Lymph # (Auto) Gordon # (Auto) Eos # (Auto) Seg Neutrophils % Seg Neuts % (Manual) Baso # (Auto) Lymphocytes % (Manual) Monocytes % (Manual) Eosinophils % (Manual) Basophils % (Manual) Seg Neutrophils # Seg Neutrophils # Man Lymphocytes # (Manual) Monocytes # (Manual) Eosinophils # (Manual) Nucleated RBC % Basophils # (Manual) PT INR APTT Heparin Anti-Xa Level ABG pH POC ABG pO2 ABG pO2 ABG HCO3 ABG O2 Saturation ABG Base Excess POC ABG pCO2 ABG Hemoglobin ABG Oxyhemoglobin ABG Chloride ABG Glucose Oxyhemoglobin Sodium Potassium Chloride Carbon Dioxide BUN Creatinine Glucose POC Glucose 129 H 126 H 129 H Lactic Acid Calcium Phosphorus Magnesium AST ALT Lactate Dehydrogenase Total Bilirubin Direct Bilirubin CK-MB (CK-2) C-Reactive Protein NT-Pro-B Natriuret Pep Total Protein Albumin Arterial Blood Glucose Urine WBC (Auto) Urine Creatinine 02/13/20 02/14/20 02/14/20 17:59 00:15 05:41 WBC RBC Hgb Hct MCHC RDW MCV MCH Lymph % (Auto) Gordon % (Auto) Gordon # Eos # Lymph # (Auto) Gordon # (Auto) Eos # (Auto) Seg Neutrophils % Seg Neuts % (Manual) Baso # (Auto) Lymphocytes % (Manual) Monocytes % (Manual) Eosinophils % (Manual) Basophils % (Manual) Seg Neutrophils # Seg Neutrophils # Man Lymphocytes # (Manual) Monocytes # (Manual) Eosinophils # (Manual) Nucleated RBC % Basophils # (Manual) PT INR APTT Heparin Anti-Xa Level ABG pH POC ABG pO2 ABG pO2 ABG HCO3 ABG O2 Saturation ABG Base Excess POC ABG pCO2 ABG Hemoglobin ABG Oxyhemoglobin ABG Chloride ABG Glucose Oxyhemoglobin Sodium Potassium Chloride Carbon Dioxide BUN Creatinine Glucose POC Glucose 153 H 130 H 130 H Lactic Acid Calcium Phosphorus Magnesium AST ALT Lactate Dehydrogenase Total Bilirubin Direct Bilirubin CK-MB (CK-2) C-Reactive Protein NT-Pro-B Natriuret Pep Total Protein Albumin Arterial Blood Glucose Urine WBC (Auto) Urine Creatinine 02/14/20 02/15/20 02/15/20 11:32 00:12 05:27 WBC RBC Hgb Hct MCHC RDW MCV MCH Lymph % (Auto) Gordon % (Auto) Gordon # Eos # Lymph # (Auto) Gordon # (Auto) Eos # (Auto) Seg Neutrophils % Seg Neuts % (Manual) Baso # (Auto) Lymphocytes % (Manual) Monocytes % (Manual) Eosinophils % (Manual) Basophils % (Manual) Seg Neutrophils # Seg Neutrophils # Man Lymphocytes # (Manual) Monocytes # (Manual) Eosinophils # (Manual) Nucleated RBC % Basophils # (Manual) PT INR APTT Heparin Anti-Xa Level ABG pH POC ABG pO2 ABG pO2 ABG HCO3 ABG O2 Saturation ABG Base Excess POC ABG pCO2 ABG Hemoglobin ABG Oxyhemoglobin ABG Chloride ABG Glucose Oxyhemoglobin Sodium Potassium Chloride Carbon Dioxide BUN Creatinine Glucose POC Glucose 157 H 124 H 111 H Lactic Acid Calcium Phosphorus Magnesium AST ALT Lactate Dehydrogenase Total Bilirubin Direct Bilirubin CK-MB (CK-2) C-Reactive Protein NT-Pro-B Natriuret Pep Total Protein Albumin Arterial Blood Glucose Urine WBC (Auto) Urine Creatinine 02/15/20 02/15/20 02/15/20 06:59 06:59 11:14 WBC RBC Hgb 10.4 L Hct 33.7 L MCHC 31 L RDW 19.4 H MCV 80 L MCH 24 L Lymph % (Auto) Gordon % (Auto) Gordon # Eos # Lymph # (Auto) Gordon # (Auto) Eos # (Auto) Seg Neutrophils % Seg Neuts % (Manual) Baso # (Auto) Lymphocytes % (Manual) Monocytes % (Manual) Eosinophils % (Manual) Basophils % (Manual) 2.0 H Seg Neutrophils # Seg Neutrophils # Man Lymphocytes # (Manual) Monocytes # (Manual) Eosinophils # (Manual) Nucleated RBC % 1.0 H Basophils # (Manual) 0.2 H PT INR APTT Heparin Anti-Xa Level ABG pH POC ABG pO2 ABG pO2 ABG HCO3 ABG O2 Saturation ABG Base Excess POC ABG pCO2 ABG Hemoglobin ABG Oxyhemoglobin ABG Chloride ABG Glucose Oxyhemoglobin Sodium 149 H Potassium Chloride 108.4 H Carbon Dioxide 31 H BUN 40 H Creatinine 0.7 L Glucose 150 H POC Glucose 128 H Lactic Acid Calcium Phosphorus Magnesium AST ALT Lactate Dehydrogenase Total Bilirubin Direct Bilirubin CK-MB (CK-2) C-Reactive Protein NT-Pro-B Natriuret Pep Total Protein Albumin Arterial Blood Glucose Urine WBC (Auto) Urine Creatinine 02/15/20 02/15/20 02/16/20 17:46 23:50 05:03 WBC RBC Hgb Hct MCHC RDW MCV MCH Lymph % (Auto) Gordon % (Auto) Gordon # Eos # Lymph # (Auto) Gordon # (Auto) Eos # (Auto) Seg Neutrophils % Seg Neuts % (Manual) Baso # (Auto) Lymphocytes % (Manual) Monocytes % (Manual) Eosinophils % (Manual) Basophils % (Manual) Seg Neutrophils # Seg Neutrophils # Man Lymphocytes # (Manual) Monocytes # (Manual) Eosinophils # (Manual) Nucleated RBC % Basophils # (Manual) PT INR APTT Heparin Anti-Xa Level ABG pH POC ABG pO2 ABG pO2 ABG HCO3 ABG O2 Saturation ABG Base Excess POC ABG pCO2 ABG Hemoglobin ABG Oxyhemoglobin ABG Chloride ABG Glucose Oxyhemoglobin Sodium Potassium Chloride Carbon Dioxide BUN Creatinine Glucose POC Glucose 154 H 135 H 148 H Lactic Acid Calcium Phosphorus Magnesium AST ALT Lactate Dehydrogenase Total Bilirubin Direct Bilirubin CK-MB (CK-2) C-Reactive Protein NT-Pro-B Natriuret Pep Total Protein Albumin Arterial Blood Glucose Urine WBC (Auto) Urine Creatinine 02/16/20 02/16/20 02/16/20 07:53 11:28 17:52 WBC RBC Hgb Hct MCHC RDW MCV MCH Lymph % (Auto) Gordon % (Auto) Gordon # Eos # Lymph # (Auto) Gordon # (Auto) Eos # (Auto) Seg Neutrophils % Seg Neuts % (Manual) Baso # (Auto) Lymphocytes % (Manual) Monocytes % (Manual) Eosinophils % (Manual) Basophils % (Manual) Seg Neutrophils # Seg Neutrophils # Man Lymphocytes # (Manual) Monocytes # (Manual) Eosinophils # (Manual) Nucleated RBC % Basophils # (Manual) PT INR APTT Heparin Anti-Xa Level ABG pH POC ABG pO2 ABG pO2 ABG HCO3 ABG O2 Saturation ABG Base Excess POC ABG pCO2 ABG Hemoglobin ABG Oxyhemoglobin ABG Chloride ABG Glucose Oxyhemoglobin Sodium Potassium Chloride 107.9 H Carbon Dioxide BUN 38 H Creatinine 0.6 L Glucose 151 H POC Glucose 123 H 152 H Lactic Acid Calcium Phosphorus Magnesium AST ALT Lactate Dehydrogenase Total Bilirubin Direct Bilirubin CK-MB (CK-2) C-Reactive Protein NT-Pro-B Natriuret Pep Total Protein Albumin Arterial Blood Glucose Urine WBC (Auto) Urine Creatinine 02/16/20 02/17/20 02/17/20 23:49 06:24 11:36 WBC RBC Hgb Hct MCHC RDW MCV MCH Lymph % (Auto) Gordon % (Auto) Gordon # Eos # Lymph # (Auto) Gordon # (Auto) Eos # (Auto) Seg Neutrophils % Seg Neuts % (Manual) Baso # (Auto) Lymphocytes % (Manual) Monocytes % (Manual) Eosinophils % (Manual) Basophils % (Manual) Seg Neutrophils # Seg Neutrophils # Man Lymphocytes # (Manual) Monocytes # (Manual) Eosinophils # (Manual) Nucleated RBC % Basophils # (Manual) PT INR APTT Heparin Anti-Xa Level ABG pH POC ABG pO2 ABG pO2 ABG HCO3 ABG O2 Saturation ABG Base Excess POC ABG pCO2 ABG Hemoglobin ABG Oxyhemoglobin ABG Chloride ABG Glucose Oxyhemoglobin Sodium Potassium Chloride Carbon Dioxide BUN Creatinine Glucose POC Glucose 156 H 193 H 162 H Lactic Acid Calcium Phosphorus Magnesium AST ALT Lactate Dehydrogenase Total Bilirubin Direct Bilirubin CK-MB (CK-2) C-Reactive Protein NT-Pro-B Natriuret Pep Total Protein Albumin Arterial Blood Glucose Urine WBC (Auto) Urine Creatinine 02/17/20 02/17/20 02/18/20 17:55 23:28 05:11 WBC RBC Hgb Hct MCHC RDW MCV MCH Lymph % (Auto) Gordon % (Auto) Gordon # Eos # Lymph # (Auto) Gordon # (Auto) Eos # (Auto) Seg Neutrophils % Seg Neuts % (Manual) Baso # (Auto) Lymphocytes % (Manual) Monocytes % (Manual) Eosinophils % (Manual) Basophils % (Manual) Seg Neutrophils # Seg Neutrophils # Man Lymphocytes # (Manual) Monocytes # (Manual) Eosinophils # (Manual) Nucleated RBC % Basophils # (Manual) PT INR APTT Heparin Anti-Xa Level ABG pH POC ABG pO2 ABG pO2 ABG HCO3 ABG O2 Saturation ABG Base Excess POC ABG pCO2 ABG Hemoglobin ABG Oxyhemoglobin ABG Chloride ABG Glucose Oxyhemoglobin Sodium Potassium Chloride Carbon Dioxide BUN Creatinine Glucose POC Glucose 165 H 146 H 122 H Lactic Acid Calcium Phosphorus Magnesium AST ALT Lactate Dehydrogenase Total Bilirubin Direct Bilirubin CK-MB (CK-2) C-Reactive Protein NT-Pro-B Natriuret Pep Total Protein Albumin Arterial Blood Glucose Urine WBC (Auto) Urine Creatinine 02/18/20 02/18/20 02/19/20 12:24 17:29 00:01 WBC RBC Hgb Hct MCHC RDW MCV MCH Lymph % (Auto) Gordon % (Auto) Gordon # Eos # Lymph # (Auto) Gordon # (Auto) Eos # (Auto) Seg Neutrophils % Seg Neuts % (Manual) Baso # (Auto) Lymphocytes % (Manual) Monocytes % (Manual) Eosinophils % (Manual) Basophils % (Manual) Seg Neutrophils # Seg Neutrophils # Man Lymphocytes # (Manual) Monocytes # (Manual) Eosinophils # (Manual) Nucleated RBC % Basophils # (Manual) PT INR APTT Heparin Anti-Xa Level ABG pH POC ABG pO2 ABG pO2 ABG HCO3 ABG O2 Saturation ABG Base Excess POC ABG pCO2 ABG Hemoglobin ABG Oxyhemoglobin ABG Chloride ABG Glucose Oxyhemoglobin Sodium Potassium Chloride Carbon Dioxide BUN Creatinine Glucose POC Glucose 162 H 136 H 145 H Lactic Acid Calcium Phosphorus Magnesium AST ALT Lactate Dehydrogenase Total Bilirubin Direct Bilirubin CK-MB (CK-2) C-Reactive Protein NT-Pro-B Natriuret Pep Total Protein Albumin Arterial Blood Glucose Urine WBC (Auto) Urine Creatinine 02/19/20 02/19/20 02/19/20 05:53 11:44 17:32 WBC RBC Hgb Hct MCHC RDW MCV MCH Lymph % (Auto) Gordon % (Auto) Gordon # Eos # Lymph # (Auto) Gordon # (Auto) Eos # (Auto) Seg Neutrophils % Seg Neuts % (Manual) Baso # (Auto) Lymphocytes % (Manual) Monocytes % (Manual) Eosinophils % (Manual) Basophils % (Manual) Seg Neutrophils # Seg Neutrophils # Man Lymphocytes # (Manual) Monocytes # (Manual) Eosinophils # (Manual) Nucleated RBC % Basophils # (Manual) PT INR APTT Heparin Anti-Xa Level ABG pH POC ABG pO2 ABG pO2 ABG HCO3 ABG O2 Saturation ABG Base Excess POC ABG pCO2 ABG Hemoglobin ABG Oxyhemoglobin ABG Chloride ABG Glucose Oxyhemoglobin Sodium Potassium Chloride Carbon Dioxide BUN Creatinine Glucose POC Glucose 116 H 120 H 154 H Lactic Acid Calcium Phosphorus Magnesium AST ALT Lactate Dehydrogenase Total Bilirubin Direct Bilirubin CK-MB (CK-2) C-Reactive Protein NT-Pro-B Natriuret Pep Total Protein Albumin Arterial Blood Glucose Urine WBC (Auto) Urine Creatinine 02/19/20 02/20/20 02/20/20 23:43 00:24 00:24 WBC RBC Hgb 9.4 L Hct 30.0 L MCHC 31 L RDW 20.4 H MCV 79 L MCH 25 L Lymph % (Auto) Gordon % (Auto) 8.5 H Gordon # Eos # Lymph # (Auto) Gordon # (Auto) Eos # (Auto) Seg Neutrophils % Seg Neuts % (Manual) Baso # (Auto) Lymphocytes % (Manual) Monocytes % (Manual) Eosinophils % (Manual) Basophils % (Manual) Seg Neutrophils # Seg Neutrophils # Man Lymphocytes # (Manual) Monocytes # (Manual) Eosinophils # (Manual) Nucleated RBC % Basophils # (Manual) PT INR APTT Heparin Anti-Xa Level ABG pH POC ABG pO2 ABG pO2 ABG HCO3 ABG O2 Saturation ABG Base Excess POC ABG pCO2 ABG Hemoglobin ABG Oxyhemoglobin ABG Chloride ABG Glucose Oxyhemoglobin Sodium 147 H Potassium 3.4 L Chloride Carbon Dioxide 31 H BUN 34 H Creatinine 0.5 L Glucose 135 H POC Glucose 122 H Lactic Acid Calcium Phosphorus Magnesium AST ALT Lactate Dehydrogenase Total Bilirubin Direct Bilirubin CK-MB (CK-2) C-Reactive Protein NT-Pro-B Natriuret Pep Total Protein Albumin Arterial Blood Glucose Urine WBC (Auto) Urine Creatinine 02/20/20 02/20/20 02/20/20 06:07 06:45 12:03 WBC RBC Hgb Hct MCHC RDW MCV MCH Lymph % (Auto) Gordon % (Auto) Gordon # Eos # Lymph # (Auto) Gordon # (Auto) Eos # (Auto) Seg Neutrophils % Seg Neuts % (Manual) Baso # (Auto) Lymphocytes % (Manual) Monocytes % (Manual) Eosinophils % (Manual) Basophils % (Manual) Seg Neutrophils # Seg Neutrophils # Man Lymphocytes # (Manual) Monocytes # (Manual) Eosinophils # (Manual) Nucleated RBC % Basophils # (Manual) PT INR APTT Heparin Anti-Xa Level ABG pH 7.461 H POC ABG pO2 ABG pO2 ABG HCO3 33.3 H ABG O2 Saturation ABG Base Excess 8.4 H POC ABG pCO2 ABG Hemoglobin 10.0 L ABG Oxyhemoglobin ABG Chloride ABG Glucose Oxyhemoglobin 94.1 L Sodium Potassium Chloride Carbon Dioxide BUN Creatinine Glucose POC Glucose 109 H 128 H Lactic Acid Calcium Phosphorus Magnesium AST ALT Lactate Dehydrogenase Total Bilirubin Direct Bilirubin CK-MB (CK-2) C-Reactive Protein NT-Pro-B Natriuret Pep Total Protein Albumin Arterial Blood Glucose Urine WBC (Auto) Urine Creatinine 02/20/20 02/20/20 02/21/20 18:02 23:55 05:42 WBC RBC Hgb Hct MCHC RDW MCV MCH Lymph % (Auto) Gordon % (Auto) Gordon # Eos # Lymph # (Auto) Gordon # (Auto) Eos # (Auto) Seg Neutrophils % Seg Neuts % (Manual) Baso # (Auto) Lymphocytes % (Manual) Monocytes % (Manual) Eosinophils % (Manual) Basophils % (Manual) Seg Neutrophils # Seg Neutrophils # Man Lymphocytes # (Manual) Monocytes # (Manual) Eosinophils # (Manual) Nucleated RBC % Basophils # (Manual) PT INR APTT Heparin Anti-Xa Level ABG pH POC ABG pO2 ABG pO2 ABG HCO3 ABG O2 Saturation ABG Base Excess POC ABG pCO2 ABG Hemoglobin ABG Oxyhemoglobin ABG Chloride ABG Glucose Oxyhemoglobin Sodium Potassium Chloride Carbon Dioxide BUN Creatinine Glucose POC Glucose 118 H 125 H 127 H Lactic Acid Calcium Phosphorus Magnesium AST ALT Lactate Dehydrogenase Total Bilirubin Direct Bilirubin CK-MB (CK-2) C-Reactive Protein NT-Pro-B Natriuret Pep Total Protein Albumin Arterial Blood Glucose Urine WBC (Auto) Urine Creatinine 02/21/20 12:10 WBC RBC Hgb Hct MCHC RDW MCV MCH Lymph % (Auto) Gordon % (Auto) Gordon # Eos # Lymph # (Auto) Gordon # (Auto) Eos # (Auto) Seg Neutrophils % Seg Neuts % (Manual) Baso # (Auto) Lymphocytes % (Manual) Monocytes % (Manual) Eosinophils % (Manual) Basophils % (Manual) Seg Neutrophils # Seg Neutrophils # Man Lymphocytes # (Manual) Monocytes # (Manual) Eosinophils # (Manual) Nucleated RBC % Basophils # (Manual) PT INR APTT Heparin Anti-Xa Level ABG pH POC ABG pO2 ABG pO2 ABG HCO3 ABG O2 Saturation ABG Base Excess POC ABG pCO2 ABG Hemoglobin ABG Oxyhemoglobin ABG Chloride ABG Glucose Oxyhemoglobin Sodium Potassium Chloride Carbon Dioxide BUN Creatinine Glucose POC Glucose 128 H Lactic Acid Calcium Phosphorus Magnesium AST ALT Lactate Dehydrogenase Total Bilirubin Direct Bilirubin CK-MB (CK-2) C-Reactive Protein NT-Pro-B Natriuret Pep Total Protein Albumin Arterial Blood Glucose Urine WBC (Auto) Urine Creatinine Allied health notes reviewed: RT
[2020-02-21] MEDS: POLYETHYLENE GLYCOL 3350 17 GM POWDER PO SCH (21:07)
[2020-02-21] MEDS: TAMSULOSIN 0.4 MG CAP PO SCH (21:08)
[2020-02-22] MEDS: INSULIN REGULAR, HUMAN 100 UNIT/ML 3ML VIAL SUB-Q SCH ×5 (07:56→23:56)
[2020-02-22 08:42] LABS: Basophils # (Auto) 0.1 K/mm3 (0.0-0.1); Basophils % (Auto) 0.9 % (0.0-1.8); Eosinophils # (Auto) 0.2 K/mm3 (0.0-0.4); Eosinophils % (Auto) 2.1 % (0.0-4.3); Hematocrit 35.2 % (35.5-45.6); Hemoglobin 10.8 gm/dl (11.8-15.2); Lymphocytes # (Auto) 1.8 K/mm3 (1.2-5.4); Mean Corpuscular HGB Conc 31 % (32-34); Mean Corpuscular Volume 80 fl (84-94); Monocytes # (Auto) 0.6 K/mm3 (0.0-0.8); Monocytes % (Auto) 6.5 % (0.0-7.3); Platelet Count 216 K/mm3 (140-440); Red Blood Count 4.42 M/mm3 (3.65-5.03)
[2020-02-22 08:47] LABS: Red Cell Distribution Width 21.8 % (13.2-15.2)
[2020-02-22 09:04] LABS: Blood Urea Nitrogen 21 mg/dL (9-20); Calcium 9.5 mg/dL (8.4-10.2); Hemolysis Index 21
[2020-02-22 09:13] LABS: BUN/Creatinine Ratio 53
--- NOTE | 2020-02-22 10:32 | Progress Note ---
Assessment and Plan Assessment and plan: --Ischemic cardiomyopathy Cardiology is following, status post cardiac catheterization on 01/22/2020; Co ronary artery disease status post PCI and stent to the LAD Continue current cardiac medications --Acute on chronic hypoxemic respiratory failure; Patient has tracheostomy on vent Continue nebulizers, , trach care Wean off ventilator as tolerated Pulmonary critical following --Acute exacerbation of COPD; Patient is currently on ventilatory support Continue nebulizers --Left lower lobe PE; Continue Eliquis, ventilatory support --Acute right lower extremity DVT; Patient is on Eliquis --Bilateral multifocal pneumonia/community-acquired Completed antibiotics, improved --Severe sepsis/bilateral pneumonia: Completed antibiotics COVID-19 test; 11/24/2019; negative 11/26/2019; negative 12/29/2019: Negative --Paroxysmal atrial fibrillation; Now rate controlled, Stable on amiodarone and Eliquis --Acute on chronic combined systolic and diastolic congestive heart failure Ischemic cardiomyopathy left ventricular ejection fraction 40 to 45% --H/o CAD [[facility] 12/2018 in-stent restenosis] Patient is stable on current cardiac medications --Hypertensive emergency; present on admission Reasonable blood pressures, continue current antihypertensives As needed medications --History of alcohol abuse/alcohol withdrawal; Was on CIWA protocol, now stable --Oropharyngeal dysphagia; status post PEG placement Continue PEG feeds per protocol --History of partial small bowel obstruction; resolved Surgery evaluated. --Obesity; BMI 34.7 Patient needs weight reduction when medically stable --Severe protein calorie malnutrition/hypoalbuminemia Nutrition supplements, dietitian following, PEG feeds --DVT prophylaxis;Eliquis --Full CODE STATUS 01/05; Pt stable. NGT output 650cc over 24 hours, bilious. No f/c, WBC within normal limits. cont NG suction and cont to hold TF 01/06: Abs series - mild improvement in small bowel distension in mid abdomen, normal gas/stool pattern in colon. NGT in duodenum. Continue to hold tube feeding, maintain NG tube with low intermittent suction. Patient's was updated by phone. Continue to provide supportive care and monitor clinically. 01/07: +BMs today and NGT/PEG output appears more gastric today. Plan to clamp NGT, if tolerates start TF from tomorrow. cont supportive care. 01/08; Gastric output decreased over last 24 hours. NGT has been clamped x 24 hours. plan to dc NGT and to start TTF via PEG - vital HF @10cc/hr 01/09: clinically stable, tolerating TF. monitor BMP, wean off from vent as tolerated clinically stable, on TF. wean off vent as tolerated 01/11: wean off from vent, cont to monitor, on TF 01/12: wean off from vent, cont to monitor, on TF. need placement - unfunded 01/13; remains on ventilatory support, unable to wean, DC planning possible LTAC, unfunded 01/14; patient of ventilatory support, T-piece tracheostomy on oxygen, LTAC placement per case management 01/16; tracheostomy, patient on full ventilatory support, wean off vent support as tolerated, pending LTAC placement, social financial issues 01/17; awaiting LTAC placement, insurance and financial issues 01/18; patient tracheostomy remains on ventilatory support 01/19; wean off ventilator as tolerated 01/20; remains on ventilatory support, patient complains of intermittent chest pain, cardiology recommend left heart catheterization tomorrow 01/22/2020. Patient for left heart catheterization per cardiology. Patient remains on AC mode ventilation rate 12, tidal volume 450, FiO2 30% and PEEP of 6. Continue tracheostomy care, airway management and secretion control. 01/23/2020. Cardiac catheterization completed yesterday revealed widely patent previous LAD stent with mild nonobstructive atherosclerosis of the right mid coronary artery and rest of the coronary system was without significant atherosclerosis. The left ventricle ejection fraction was mildly impaired at 40 to 45%. There was some hypokinesis of the basal inferior wall suggestive of previous or recent infarct. Continue GDMT for coronary artery disease including beta blockers, topical nitrates, statin and Plavix. Continue Eliquis for paroxysmal atrial fibrillation and PE. Continue diuresis with Lasix and follow electrolytes closely. Continue Robinul and scopolamine for secretion control and daily SBT per pulmonary. Also, continue bronchodilators and routine trach care/airway management. T-piece trials per pulmonary as tolerated. 01/24/2020. Recent cardiac catheterization has documented widely patent left anterior descending artery stent with minimal nonobstructive diffuse coronary artery disease in the rest of the coronary arteries. Evidence of ischemic cardiomyopathy with inferior wall hypokinesis. Continue with guideline directed medical therapy. Continue Robinul and scopolamine for secretion control and daily SBT per pulmonary. Continue bronchodilators and routine trach care/airway management. T-piece trials per pulmonary as tolerated. 01/25/2020. Continue with guideline directed medical therapy for systolic heart failure. Cardiac catheterization revealed evidence of ischemic cardiomyopathy with inferior wall hypokinesis (EF 40-45%). Patient currently on T-piece with oxygen 10 L/min FiO2 40%. Continue Robinul and scopolamine for secretion control. Continue bronchodilators and routine trach care/airway management. 02/03: Mental status more improved, agree with Reglan will change to IV scheduled for two days, no new vomiting. Pseudomonas A in Sputum. 02/04: Clinical improving, amiodarone discontinued due to LFTs, continue Metoprolol.d/w GI, started on Golytely to clear impaction. Started on dialy Miralax. 02/05: Continue supportive care. Noted bowel movement, continue bowel regimen 02/06: Cardiology input noted beta-hebert increased for better suppression of atrial fibrillation. Continue to monitor, no other evidence of nausea vomiting noted. Discussed with respiratory therapist will be continued on weaning protocol with pressure support today. 02/07: Patient successfully weaned off the ventilator, No new complaints, c ontinue monitoring, BM noted, Discussed with pulmonary, 02/08; tracheostomy on T-piece, patient is more alert and awake today 02/09; clinically no change, tracheostomy on vent 02/10; tracheostomy on vent, full CODE STATUS, poor prognosis, 02/11; clinically no change, remains on ventilatory support, full CODE STATUS, discussed with spouse Ms. Paulette Araiza extensively today 02/12. Patient resting comfortably no change on vent with tracheostomy. Still unable to wean. Some increased crackles today. 02/13: Still unable to wean from the vent. Overall prognosis remains extremely poor. 02/14; remains critically ill, tracheostomy on vent, unable to wean, poor prognosis, full CODE STATUS 02/15; patient is more alert and awake today, chronic tracheostomy on T-piece, continue current management DC planning per case management. Disposition very difficult due to lack of resources and insurance 02/17/2020. Patient remains on mechanical ventilation and tolerating PSV trials. Patient currently with PSV 10/6 at FiO2 of 30%. 02/18/2020. Patient currently on PSV 10/6 with FiO2 of 40%. 40% T-piece trial was attempted but patient unable to tolerate due to saturations dropping into the 80s and heart rate in the 140s. Therefore, patient placed back on PSV. Continue anticoagulation with Eliquis. Continue secretion control with Robinul and scopolamine. Continue rate control with metoprolol and digoxin. 02/19/2020. Patient currently on PSV 10/6 with FiO2 of 30%. T-piece trial attempted yesterday but patient did not tolerate. Continue T-piece trials as tolerated. Continue anticoagulation with Eliquis. Continue secretion control with Robinul and scopolamine. Continue rate control with metoprolol and digoxin. Continue to follow with case management with regards to discharge pl anning. 02/20/2020. Patient continues to tolerate PSV 10/6. Continue rate control with metoprolol and digoxin. Amiodarone discontinued due to elevated liver transaminases. Eliquis for anticoagulation acute PE/DVT. 02/21/2020. Patient continues to tolerate PSV 10/6 at FiO2 of 30%. Continue ra te control with metoprolol and digoxin. Amiodarone discontinued due to elevated liver transaminases. Eliquis for anticoagulation acute PE/DVT. 02/22/2020. Patient continues to tolerate PSV 10/6 at FiO2 of 30%. Continue rate control with metoprolol and digoxin. Amiodarone discontinued due to el evated liver transaminases. Eliquis for anticoagulation acute PE/DVT. The high probability of a clinically significant, sudden or life threatening deterioration of the [Respiratory, cardiovascular & neurological] system(s) required my full and direct attention, intervention and personal management. The aggregate critical care time was [32] minutes without overlap. Time includes spent on [x] Data Review and interpretation [x] Patient assessment and monitoring of vital signs [x] Documentation [x] Medication orders and management History Interval history: Patient is a 64-year-old male with known history of hypertension, COPD, history of coronary artery disease, CHF with ejection fraction of 20 to 25% 2019 was admitted through emergency room with worsening shortness of breath Patient was found to be hypoxic and in respiratory distress. Patient was placed on CPAP in route to the hospital. Patient remained hypoxic on CPAP BiPAP ,subsequently was intubated. Patient also had bilateral multifocal pneumonia managed appropriately with antibiotics sputum cultures positive for Pseudomonas, ID treated with cefepime and Vanco. His hospital course became complicated with acute PE, DVT, paroxysmal atrial fib - placed on chronic anticoagulation. Patient was difficult to wean off, status post trach and PEG, remains on mechanical ventilation with trach tube. He then developed partial small bowel obstruction evaluated by general surgeon symptom improved with medical Mx, patient was briefly weaned off ventilatory support however, was in respiratory failure requiring full ventilatory support. Cardiac catheterization on 01/22/2020. Patient remains on mechanical ventilatory support. Patients still with elevated heart rate of Afib with RVR continue amiodarone and metoprolol. LVEF 40 to 45% on Eliquis FOR THE Acute PE/DVT. Partial SBO vs ileus- KUB is negative. Will monitor, No further vomiting noted. If no improvement will repeat a chest xray to ensure no aspiration in the last 24 hrs. Hospitalist Physical - Constitutional Vitals: Temp Pulse Resp BP Pulse Ox 97.3 F L 110 H 26 H 109/87 93 02/22/20 08:00 02/22/20 10:00 02/22/20 10:00 02/22/20 10:00 02/22/20 10:00 General appearance: Present: no acute distress, well-nourished, obese, other (Tracheostomy responds to simple questions appropriately) - EENT Eyes: Present: PERRL, EOM intact ENT: hearing intact, clear oral mucosa, dentition normal - Neck Neck: Present: supple, normal ROM - Respiratory Respiratory effort: normal Respiratory: bilateral: CTA - Cardiovascular Rhythm: regular Heart Sounds: Present: S1 & S2. Absent: gallop, rub - Extremities Extremities: no ischemia, No edema, Full ROM - Abdominal General gastrointestinal: soft, non-tender, non-distended, normal bowel sounds - Integumentary Integumentary: Present: clear, warm, dry - Neurologic Neurologic: CNII-XII intact, moves all extremities HEART Score - HEART Score Troponin: Troponin T < 0.010 ng/mL (0.00-0.029) 01/19/20 01:35 Results - Labs CBC & Chem 7: 02/22/20 08:06 02/22/20 08:06 Labs: Laboratory Last Values WBC 9.2 K/mm3 (4.5-11.0) 02/22/20 08:06 RBC 4.42 M/mm3 (3.65-5.03) 02/22/20 08:06 Hgb 10.8 gm/dl (11.8-15.2) L 02/22/20 08:06 Hct 35.2 % (35.5-45.6) L 02/22/20 08:06 MCV 80 fl (84-94) L 02/22/20 08:06 MCH 25 pg (28-32) L 02/22/20 08:06 MCHC 31 % (32-34) L 02/22/20 08:06 RDW 21.8 % (13.2-15.2) H 02/22/20 08:06 Plt Count 216 K/mm3 (140-440) 02/22/20 08:06 Lymph % (Auto) 19.0 % (13.4-35.0) 02/22/20 08:06 [place] % (Auto) 6.5 % (0.0-7.3) 02/22/20 08:06 Eos % (Auto) 2.1 % (0.0-4.3) 02/22/20 08:06 Baso % (Auto) 0.9 % (0.0-1.8) 02/22/20 08:06 Lymph # (Auto) 1.8 K/mm3 (1.2-5.4) 02/22/20 08:06 [place] # (Auto) 0.6 K/mm3 (0.0-0.8) 02/22/20 08:06 Eos # (Auto) 0.2 K/mm3 (0.0-0.4) 02/22/20 08:06 Baso # (Auto) 0.1 K/mm3 (0.0-0.1) 02/22/20 08:06 Add Manual Diff Complete 02/15/20 06:59 Total Counted 100 02/15/20 06:59 Seg Neutrophils % 71.5 % (40.0-70.0) H 02/22/20 08:06 Seg Neuts % (Manual) 58.0 % (40.0-70.0) 02/15/20 06:59 Band Neutrophils % 0 % 02/15/20 06:59 Lymphocytes % (Manual) 34.0 % (13.4-35.0) 02/15/20 06:59 Reactive Lymphs % (Man) 1.0 % 02/15/20 06:59 Monocytes % (Manual) 4.0 % (0.0-7.3) 02/15/20 06:59 Eosinophils % (Manual) 0 % (0.0-4.3) 02/15/20 06:59 Basophils % (Manual) 2.0 % (0.0-1.8) H 02/15/20 06:59 Metamyelocytes % 1.0 % 02/15/20 06:59 Myelocytes % 0 % 02/15/20 06:59 Promyelocytes % 0 % 02/15/20 06:59 Blast Cells % 0 % 02/15/20 06:59 Nucleated RBC % 1.0 % (0.0-0.9) H 02/15/20 06:59 Seg Neutrophils # 6.6 K/mm3 (1.8-7.7) 02/22/20 08:06 Seg Neutrophils # Man 5.9 K/mm3 (1.8-7.7) 02/15/20 06:59 Band Neutrophils # 0.0 K/mm3 02/15/20 06:59 Lymphocytes # (Manual) 3.5 K/mm3 (1.2-5.4) 02/15/20 06:59 Abs React Lymphs (Man) 0.1 K/mm3 02/15/20 06:59 Monocytes # (Manual) 0.4 K/mm3 (0.0-0.8) 02/15/20 06:59 Eosinophils # (Manual) 0.0 K/mm3 (0.0-0.4) 02/15/20 06:59 Basophils # (Manual) 0.2 K/mm3 (0.0-0.1) H 02/15/20 06:59 Metamyelocytes # 0.1 K/mm3 02/15/20 06:59 Myelocytes # 0.0 K/mm3 02/15/20 06:59 Promyelocytes # 0.0 K/mm3 02/15/20 06:59 Blast Cells # 0.0 K/mm3 02/15/20 06:59 WBC Morphology Not Reportable 02/15/20 06:59 Hypersegmented Neuts Not Reportable 02/15/20 06:59 Hyposegmented Neuts Not Reportable 02/15/20 06:59 Hypogranular Neuts Not Reportable 02/15/20 06:59 Smudge Cells Not Reportable 02/15/20 06:59 Toxic Granulation Not Reportable 02/15/20 06:59 Toxic Vacuolation Not Reportable 02/15/20 06:59 Dohle Bodies Not Reportable 02/15/20 06:59 Pelger-Huet Anomaly Not Reportable 02/15/20 06:59 Hector Rods Not Reportable 02/15/20 06:59 Platelet Estimate Consistent w auto 02/15/20 06:59 Clumped Platelets Not Reportable 02/15/20 06:59 Plt Clumps, EDTA Not Reportable 02/15/20 06:59 Large Platelets Not Reportable 02/15/20 06:59 Giant Platelets Not Reportable 02/15/20 06:59 Platelet Satelliting Not Reportable 02/15/20 06:59 Plt Morphology Comment Giant platelets 02/15/20 06:59 RBC Morphology Not Reportable 02/15/20 06:59 Dimorphic RBCs Not Reportable 02/15/20 06:59 Polychromasia Not Reportable 02/15/20 06:59 Hypochromasia 1+ 02/15/20 06:59 Poikilocytosis Few 02/15/20 06:59 Anisocytosis 1+ 02/15/20 06:59 Microcytosis Not Reportable 02/15/20 06:59 Macrocytosis Not Reportable 02/15/20 06:59 Spherocytes Not Reportable 02/15/20 06:59 Pappenheimer Bodies Not Reportable 02/15/20 06:59 Sickle Cells Not Reportable 02/15/20 06:59 Target Cells 1+ 02/15/20 06:59 Tear Drop Cells Few 02/15/20 06:59 Ovalocytes Not Reportable 02/15/20 06:59 Helmet Cells Not Reportable 02/15/20 06:59 Gottlieb-Ravena Bodies Not Reportable 02/15/20 06:59 [place] Rings Not Reportable 02/15/20 06:59 Oc Cells Not Reportable 02/15/20 06:59 Bite Cells Not Reportable 02/15/20 06:59 Crenated Cell Not Reportable 02/15/20 06:59 Elliptocytes Few 02/15/20 06:59 Acanthocytes (Spur) Not Reportable 02/15/20 06:59 Rouleaux Not Reportable 02/15/20 06:59 Hemoglobin C Crystals Not Reportable 02/15/20 06:59 Schistocytes Not Reportable 02/15/20 06:59 Malaria parasites Not Reportable 02/15/20 06:59 Clifford Bodies Not Reportable 02/15/20 06:59 Hem Pathologist Commnt No 02/15/20 06:59 PT 27.0 Sec. (12.2-14.9) H 02/07/20 15:03 INR 2.46 (0.87-1.13) H 02/07/20 15:03 APTT 31.5 Sec. (24.2-36.6) 01/22/20 09:58 Heparin Anti-Xa Level 1.34 U.I./ml (0.3-0.7) H 01/22/20 04:45 ABG pH 7.461 pH Units (7.350-7.450) H 02/20/20 06:45 POC ABG pCO2 34.8 mmHg (32.0-48.0) 02/11/20 14:11 ABG pCO2 47.8 mm Hg 02/20/20 06:45 POC ABG pO2 77.7 mmHg (83-108) L 02/11/20 14:11 ABG pO2 88.7 mm Hg (80.0-90.0) 02/20/20 06:45 POC ABG HCO3 26.7 02/11/20 14:11 ABG HCO3 33.3 mmol/L (20.0-26.0) H 02/20/20 06:45 ABG O2 Saturation 97.2 % (95.0-99.0) 02/20/20 06:45 ABG O2 Content 13.3 (0.0-44) 02/20/20 06:45 POC ABG Base Excess 3.6 02/11/20 14:11 ABG Base Excess 8.4 mmol/L (-2.0-3.0) H 02/20/20 06:45 ABG Hemoglobin 10.0 gm/dl (14.0-18.0) L 02/20/20 06:45 ABG Oxyhemoglobin 84 (94-98) L 12/22/19 03:22 ABG Carboxyhemoglobin 2.9 % (0.0-5.0) 02/20/20 06:45 ABG Methemoglobin 0.4 % (0.0-1.5) 02/20/20 06:45 ABG Sodium 144.7 mmol/L (136.0-145.0) 02/11/20 14:11 ABG Potassium 3.5 mmol/L (3.40-4.50) 02/11/20 14:11 ABG Chloride 108.0 mmol/L (98-107) H 02/11/20 14:11 ABG Glucose 151 mg/dL (65-95) H 02/11/20 14:11 Oxyhemoglobin 94.1 % (95.0-99.0) L 02/20/20 06:45 Carboxyhemoglobin 0.7 (0.5-1.5) 12/22/19 03:22 FiO2 30 % 02/20/20 06:45 Sodium 146 mmol/L (137-145) H 02/22/20 08:06 Potassium 3.7 mmol/L (3.6-5.0) 02/22/20 08:06 Chloride 106.1 mmol/L (98-107) 02/22/20 08:06 Carbon Dioxide 34 mmol/L (22-30) H 02/22/20 08:06 Anion Gap 10 mmol/L 02/22/20 08:06 BUN 21 mg/dL (9-20) H 02/22/20 08:06 Creatinine 0.4 mg/dL (0.8-1.3) L 02/22/20 08:06 Estimated GFR > 60 ml/min 02/22/20 08:06 BUN/Creatinine Ratio 53 % 02/22/20 08:06 Glucose 149 mg/dL (75-100) H 02/22/20 08:06 POC Glucose 138 mg/dL (70-105) H 02/22/20 05:57 Lactic Acid 1.60 mmol/L (0.7-2.0) 02/03/20 12:49 Calcium 9.5 mg/dL (8.4-10.2) 02/22/20 08:06 Ferritin 84.4 ng/mL (30.0-300.0) 11/24/19 04:53 Phosphorus 4.10 mg/dL (2.5-4.5) 01/31/20 19:24 Magnesium 2.40 mg/dL (1.7-2.3) H 02/10/20 07:40 Total Bilirubin 1.30 mg/dL (0.1-1.2) H 02/08/20 19:00 Direct Bilirubin 0.9 mg/dL (0-0.2) H 02/08/20 19:00 Indirect Bilirubin 0.4 mg/dL 02/08/20 19:00 Total Creatine Kinase 141 units/L (55-170) 11/24/19 02:53 CK-MB (CK-2) 4.3 ng/mL (0.0-4.0) H 11/24/19 02:53 AST 309 units/L (5-40) H 02/08/20 19:00 ALT 650 units/L (7-56) H 02/08/20 19:00 CK-MB (CK-2) Rel Index 3.0 (0-4) 11/24/19 02:53 Alkaline Phosphatase 109 units/L (35-129) 02/08/20 19:00 C-Reactive Protein 8.50 mg/dL (0.00-1.30) H 12/01/19 12:16 Ammonia 35.0 umol/L (25-60) 02/03/20 12:49 Lactate Dehydrogenase 228 units/L (91-180) H 12/19/19 04:45 Troponin T < 0.010 ng/mL (0.00-0.029) 01/19/20 01:35 NT-Pro-B Natriuret Pep 3866 pg/mL (0-900) H 01/01/20 10:40 Total Protein 6.2 g/dL (6.3-8.2) L 02/08/20 19:00 Albumin 2.7 g/dL (3.9-5) L 02/08/20 19:00 Albumin/Globulin Ratio 0.8 % 02/08/20 19:00 Procalcitonin 0.44 ng/mL (<0.15) 02/03/20 12:49 Arterial Blood Glucose 151 mg/dL (65-95) H 02/11/20 14:11 Arterial Blood Ionized Calcium 4.7 mg/dL (4.6-5.3) 02/11/20 14:11 Urine Color [place] (Yellow) 12/31/19 18:04 Urine Turbidity Clear (Clear) 12/31/19 18:04 Urine pH 5.0 (5.0-7.0) 12/31/19 18:04 Ur Specific [place] 1.023 (1.003-1.030) 12/31/19 18:04 Urine Protein <15 mg/dl mg/dL (Negative) 12/31/19 18:04 Urine Glucose (UA) Neg mg/dL (Negative) 12/31/19 18:04 Urine Ketones Neg mg/dL (Negative) 12/31/19 18:04 Urine Blood Neg (Negative) 12/31/19 18:04 Urine Bacteria (Auto) 1+ /HPF (Negative) 12/03/19 06:03 Urine Nitrite Neg (Negative) 12/31/19 18:04 Urine Bilirubin Neg (Negative) 12/31/19 18:04 Urine Urobilinogen 4.0 mg/dL (<2.0) 12/31/19 18:04 Ur Leukocyte Esterase Neg (Negative) 12/31/19 18:04 Urine WBC (Auto) 2.0 /HPF (0.0-6.0) 12/31/19 18:04 Urine RBC (Auto) 3.0 /HPF (0.0-6.0) 12/31/19 18:04 U Epithel Cells (Auto) 2.0 /HPF (0-13.0) 12/31/19 18:04 Urine Mucus 1+ /HPF 12/31/19 18:04 Urine Creatinine 57.4 mg/dL (0.1-20.0) H 01/31/20 Unknown Urine Sodium 59 mmol/L 01/31/20 Unknown Vancomycin Trough 14.2 ug/mL (5.0-20.0) 12/13/19 15:01 Coronavirus (PCR) Negative (Negative) 12/29/19 10:07 Hepatitis A IgM Ab Non-reactive (NonReactive) 02/05/20 06:37 Hep Bs Antigen Non-reactive (Negative) 02/05/20 06:37 Hep B Core IgM Ab Non-reactive (NonReactive) 02/05/20 06:37 Hepatitis C Antibody Non-reactive (NonReactive) 02/05/20 06:37 Blood Type O POSITIVE 01/21/20 13:00 Antibody Screen Negative 01/21/20 13:00 - Diagnostic Impressions Diagnostic Impressions: Echocardiogram 11/29/19 07:37 Transthoracic Echocardiogram Indication: CHF BP: 116/72 HR: 33 Conclusions *The study is technically limited due to poor acoustic windows. *Global left ventricular systolic function is normal. *The estimated ejection fraction is 50-55%. *Mild concentric left ventricular hypertrophy is observed. *There is trace of mitral regurgitation. *There is mild tricuspid regurgitation. Findings Procedure Info: The study quality is poor. The study is technically limited due to poor acoustic windows. The study is technically limited due to patient body habitus. Left Ventricle: The left ventricular chamber size is normal. Mild concentric left ventricular hypertrophy is observed. Global left ventricular systolic function is normal. The estimated ejection fraction is 50-55%. Left Atrium: The left atrial chamber size is normal. Right Ventricle: The right ventricular cavity size is normal. Right Atrium: The right atrial cavity size is normal. Aortic Valve: The aortic valve leaflets are moderately thickened. There is trace of aortic regurgitation. There is no evidence of aortic stenosis. Mitral Valve: The mitral valve leaflets are mildly thickened. There is trace of mitral regurgitation. There is no evidence of mitral stenosis. Tricuspid Valve: There is mild tricuspid regurgitation. No pulmonary hypertension is noted. Pulmonic Valve: There is trace pulmonic regurgitation. Pericardium: There is no pericardial effusion. Aorta: There is no dilatation of the aortic root. Venous: The inferior vena cava appears normal in size. Contrast: Definity was used to optimize study. Intravenous contrast was used to enhance endocardial border definition. Measurements Chambers 2D Name Value Normal Range Ao root diameter (2D) 3.4 cm (2 - 3.7) Aortic Valve Name Value Normal Range AV Vmax 0.98 m/sec - AV VTI 16.76 cm - AV peak gradient 3.83 mmHg - AV mean gradient 2.57 mmHg - LVOT diameter 3.11 cm - LVOT Vmax 0.68 m/sec - LVOT VTI 11.52 cm - LVOT peak gradient 1.84 mmHg - LVOT mean gradient 1.27 mmHg - SV LVOT 87.31 ml - MALOU (continuity Vmax) 5.24 cm2 - MALOU (continuity VTI) 5.21 cm2 - Tricuspid Valve Name Value Normal Range IVC diameter 2.24 cm (1.2 - 2.3) Hoffman/IV: Voiding Method Indwelling Catheter IV Catheter Type [Left INT / Saline Lock Antecubital] IV Catheter Type [Right INT / Saline Lock Forearm] IV Catheter Type [Right Hand] Peripheral IV IV Catheter Type [Right Upper INT / Saline Lock arm] IV Catheter Type [Left Upper Mid-line arm] IV Catheter Type [Left Forearm INT / Saline Lock ] IV Catheter Type [Left Hand] Peripheral IV IV Catheter Type [Left Wrist] INT / Saline Lock IV Catheter Type [Right Peripheral IV Antecubital] Active Medications - Current Medications Current Medications: Generic Name Dose Route Start Last Admin Trade Name Freq PRN Reason Stop Dose Admin Acetaminophen 650 mg 12/31/19 11:43 02/19/20 17:01 Tylenol FEEDTUBE 650 mg Q6H PRN Administration Pain, Mild (1-3) Lipase/Protease/Amylase 1 each 01/09/20 12:01 Pancreaztao Betancourt 10,500 Unit FEEDTUBE PRN PRN For Clogged Feeding Tube Apixaban 5 mg 01/22/20 22:00 02/21/20 21:10 Eliquis PO 5 mg Q12HR CAR Administration Protocol Atorvastatin Calcium 40 mg 01/20/20 22:00 02/21/20 21:10 Lipitor PO 40 mg QHS CAR Administration Clopidogrel Bisulfate 75 mg 01/21/20 06:00 02/21/20 10:51 Plavix PO 75 mg QDAY CAR Administration Dextrose 50 ml 01/31/20 18:51 02/05/20 00:56 D50w (25gm) Syringe IV 50 ml Q30MIN PRN Administration Hypoglycemia Protocol Digoxin 0.125 mg 02/10/20 17:00 02/21/20 16:51 Lanoxin IV 0.125 mg DAILY@1700 CAR Administration Docusate Sodium 100 mg 02/22/20 10:00 Colace FEEDTUBE BID CAR Glycopyrrolate 2 mg 02/20/20 20:00 02/21/20 21:08 Robinul PO 2 mg TID CAR Administration Haloperidol Lactate 5 mg 02/10/20 14:20 02/17/20 04:49 Haldol IV 5 mg Q6H PRN Administration Agitation Hydrophilic Ointment 1 applic 01/17/20 15:26 Vaseline Lip Therapy TP DIRECT PRN Dry Lips Insulin Human Regular 0 unit 02/01/20 18:00 02/22/20 07:57 Humulin R SUB-Q Not Given Q6H CAR Protocol Lansoprazole 30 mg 02/05/20 16:00 02/21/20 10:51 Prevacid Solutab FEEDTUBE 30 mg QDAY CAR Administration Metoprolol Tartrate 5 mg 01/11/20 08:00 02/16/20 22:00 Metoprolol IV 5 mg Q6H PRN Administration SEE INSTRUCTIONS Midodrine 15 mg 02/04/20 16:00 02/21/20 16:51 Proamatine PO 15 mg TID@0800,1200,1600 CAR Administration Morphine Sulfate 2 mg 01/06/20 15:41 02/21/20 16:51 Morphine IV 2 mg Q4H PRN Administration Pain, Moderate (4-6) Multi-Ingred Cream/Lotion/Oil/Oint 1 applic 02/01/20 15:52 Artificial Tears Ophth Oint OU Q4HR PRN Dry Eye(s) Nitroglycerin 0.4 mg 01/19/20 21:09 01/20/20 03:03 Nitrostat SL 0.4 mg .Q5MIN PRN Administration Chest Pain Ondansetron HCl 4 mg 01/05/20 14:37 02/16/20 17:25 Zofran IV 4 mg Q8H PRN Administration Nausea And Vomiting Polyethylene Glycol 17 gm 12/04/19 22:00 02/21/20 21:07 Miralax 3350 PO 17 gm QHS CAR Administration Quetiapine Fumarate 300 mg 01/13/20 22:00 02/21/20 21:09 Seroquel PO 300 mg BID CAR Administration Scopolamine 1 each 01/07/20 20:00 01/07/20 21:08 Transderm-Scop TD 1 each Q72HR CAR Administration Simple Syrup 15 ml 01/09/20 12:01 Simple Syrup FEEDTUBE PRN PRN Hypoglycemia Simple Syrup 30 ml 01/09/20 12:01 Simple Syrup FEEDTUBE PRN PRN Hypoglycemia Sodium Bicarbonate 325 mg 01/09/20 12:01 Sodium Bicarbonate FEEDTUBE PRN PRN For Clogged Feeding Tube Sodium Chloride 10 ml 11/24/19 10:00 02/21/20 21:10 Sodium Chloride Flush Syringe 10 Ml IV 10 ml BID CAR Administration Tamsulosin HCl 0.8 mg 12/20/19 22:00 02/21/20 21:08 Flomax PO 0.8 mg QHS CAR Administration Nutrition/Malnutrition Assess - Dietary Evaluation Nutrition/Malnutrition Findings: Nutrition Notes Start: 11/24/19 12:22 Freq: Status: Active Protocol: Document 02/19/20 09:28 LP (Rec: 02/19/20 09:30 LP [id number]) Nutrition Notes Initial or Follow up Reassessment Current Diagnosis Coronary Artery Disease,Heart Failure,Respiratory Failure, Stroke,Hyperlipidemia Other Pertinent Diagnosis Partial SBO, pneu Current Diet Vital AF 1.2 at 75ml/hr Labs/Tests Na 145 02/16/20 Pertinent Medications Reviewed Height 6 ft 2 in Weight 115.9 kg [place] Body Weight (kg) 86.36 BMI 32.8 Weight change and time frame Wt change noted. Weight Status Obese Subjective/Other Information Pt continues tolerating TF at goal. Na now WNL. Percent of energy/protein needs met: 99%/100% Burn Absent Trauma Absent GI Symptoms None Current % PO Negligible Minimum of two criteria Yes Muscle Mass Mild Depletion (non-severe) Fluid Accumulation Mild (non-severe) Reduced [employer] Strength Measurably Reduced (severe) #2 Nutrition Diagnosis Malnutrition Diagnosis Progress(for reassessment Continues documentation) #1 Nutrition Diagnosis Inadequate oral intake Diagnosis Progress(for reassessment Continues documentation) Is patient on ventilator? Yes Is Patient Ambulatory and/or Out of Bed No REE-([facility]-confined to bed) 2433.156 Kcal/Kg value to use for calculation 20 Approximate Energy Requirements Using 2318 kcal/Kg Calculation Used for Recommendations Kcal/kg Additional Notes Protein needs are 117-147g (1. 2-1.5 g/kg AdBW of 97.78kg) Fluid needs are 1.5L Nutrition Intervention Change Diet Order: Continue TF via PEG Nutrition Support: Vital AF 1.2 at 75ml/hr. increase Flush 250ml q4h for hypernatremia Flush 100ml q4h once hypernatremia is resolved Kcal 2,160 Protein (gm) 135 Fluid (mL) 1,460 Goal #1 Meet at least 75% of pt's energy and protein needs Goal #2 Weight maintenance Anticipated Discharge Needs: unable to determine at this time Follow-Up By: 02/26/20 Additional Comments Follow for stable TF
--- NOTE | 2020-02-22 10:46 | Progress Note ---
Assessment and Plan Chest pain, resolved LHC done 01/22/20 widely patent previous LAD stent. We found mild nonobstructive atherosclerosis of the mid right coronary artery. Otherwise the rest of the coronary system was without significant atherosclerosis. LVEF 40 to 45%. There was some hypokinesis of the basal inferior wall suggestive of previous or recent infarct. ECG done 01/19/20 shows sinus rhythm with low voltage QRS and subtle ST segment elevations in the inferolateral leads that suggested possible concern for an acute injury at that time. Atrial fibrillation on metoprolol and digoxin amiodarone discontinued due to liver transaminases Ischemic Cardiomyopathy re-echo this presentation reports an LVEF 40-45%. Hx of CAD Multifocal pneumonia negative COVID-19 test x 3 Chronic Respiratory failure s/p trach History of COPD Acute PE/DVT -on Eliquis Anemia Partial SBO vs ileus Recommend: Continue medical management for atrial fibrillation and coronary artery disease. Otherwise, conservative cardiac management. Subjective Date of service: 02/22/20 Principal diagnosis: Ac hypoxemic resp failure; Pneumonia; PUI COVID-19; CHF; COPD; HTN Interval history: No interval cardiac changes. Atrial fibrillation with a well controlled ventricular rate on telemetry. Objective Vital Signs Temp Pulse Pulse Resp BP Pulse Ox Pulse Ox 02/22/20 10:00 110 H 26 H 109/87 93 02/22/20 09:30 100 H 21 112/82 95 02/22/20 09:00 85 23 101/78 100 02/22/20 08:30 111 H 26 H 101/78 94 02/22/20 08:00 97.3 F L 101 H 91 H 15 106/83 94 02/22/20 07:35 100 H 112/76 98 97 02/22/20 07:30 96 H 21 112/76 96 02/22/20 07:00 115 H 22 108/67 97 02/22/20 06:30 88 21 108/67 95 02/22/20 06:00 98 H 22 115/59 95 02/22/20 05:30 84 26 H 125/79 96 02/22/20 05:00 98 H 24 126/56 02/22/20 04:40 103 H 126/56 96 02/22/20 04:30 82 23 126/56 91 02/22/20 04:00 98.9 F 100 H 90 16 117/94 95 02/22/20 03:30 92 H 16 109/70 95 02/22/20 03:00 97 H 22 111/80 96 02/22/20 02:30 84 13 105/75 96 02/22/20 02:01 105 H 13 116/100 02/22/20 01:30 80 14 88/73 96 02/22/20 01:00 89 15 88/73 95 02/22/20 00:30 101 H 19 87/66 02/22/20 00:24 100 H 88/61 97 02/22/20 00:00 98.7 F 89 96 H 22 88/61 95 02/21/20 23:30 89 19 98/69 97 02/21/20 23:00 105 H 17 107/78 94 02/21/20 22:30 74 13 85/61 95 02/21/20 22:00 76 22 94/67 96 02/21/20 21:30 85 22 91/68 97 02/21/20 21:00 104 H 19 86/68 100 02/21/20 20:36 74 12 93/65 98 02/21/20 20:30 84 14 93/65 96 02/21/20 20:00 98.8 F 90 89 22 101/65 97 02/21/20 19:55 81 92/70 96 02/21/20 19:30 78 19 92/70 02/21/20 19:00 78 21 103/73 98 02/21/20 18:30 94 H 27 H 102/78 98 02/21/20 18:00 90 23 101/69 97 02/21/20 17:30 91 H 23 101/69 100 02/21/20 17:00 93 H 16 108/72 89 02/21/20 16:55 86 25 H 125/94 99 02/21/20 16:54 98 02/21/20 16:51 102 H 125/94 02/21/20 16:30 112 H 25 H 125/94 02/21/20 16:00 97.9 F 87 17 113/78 95 02/21/20 15:55 97.9 F 02/21/20 15:43 95 H 94 H 21 94 02/21/20 15:30 95 H 22 106/73 97 02/21/20 15:00 89 19 105/83 95 02/21/20 14:30 85 16 93/72 97 02/21/20 14:00 88 16 95/71 97 02/21/20 13:30 95 H 26 H 102/78 97 02/21/20 13:00 109 H 21 95/83 93 02/21/20 12:37 21 104/75 96 02/21/20 12:30 85 15 104/75 94 02/21/20 12:00 98.0 F 84 19 113/76 95 02/21/20 11:39 87 02/21/20 11:36 87 22 95 02/21/20 11:30 87 19 104/78 98 02/21/20 11:00 96 H 24 111/80 95 - Physical Examination General: Other (s/p trach) HEENT: Positive: PERRL Cardiac: Positive: irregularly irregular Neuro: Positive: Weakness - Labs and Meds CBC 02/22/20 Range/Units 08:06 WBC 9.2 (4.5-11.0) K/mm3 RBC 4.42 (3.65-5.03) M/mm3 Hgb 10.8 L (11.8-15.2) gm/dl Hct 35.2 L (35.5-45.6) % Plt Count 216 (140-440) K/mm3 Lymph # (Auto) 1.8 (1.2-5.4) K/mm3 [place] # (Auto) 0.6 (0.0-0.8) K/mm3 Eos # (Auto) 0.2 (0.0-0.4) K/mm3 Baso # (Auto) 0.1 (0.0-0.1) K/mm3 Comprehensive Metabolic Panel 02/22/20 Range/Units 08:06 Sodium 146 H (137-145) mmol/L Potassium 3.7 (3.6-5.0) mmol/L Chloride 106.1 (98-107) mmol/L Carbon Dioxide 34 H (22-30) mmol/L BUN 21 H (9-20) mg/dL Creatinine 0.4 L (0.8-1.3) mg/dL Glucose 149 H (75-100) mg/dL Calcium 9.5 (8.4-10.2) mg/dL - Allied health notes Allied health notes reviewed: RT
[2020-02-22] MEDS: CLOPIDOGREL 75 MG TAB PO SCH (11:05)
[2020-02-22] MEDS: DOCUSATE SODIUM 100 MG/10 ML ORAL LIQD FEEDTUBE SCH ×2 (11:05→21:12)
[2020-02-22] MEDS: APIXABAN 5 MG TAB PO SCH ×2 (11:05→21:11)
[2020-02-22] MEDS: LANSOPRAZOLE 30 MG SOLUTAB FEEDTUBE SCH (11:06)
[2020-02-22] MEDS: QUEtiapine 100 MG TAB PO SCH ×2 (11:06→21:12)
[2020-02-22] MEDS: MIDODRINE 5 MG TAB PO SCH ×3 (11:06→19:03)
[2020-02-22] MEDS: GLYCOPYRROLATE 1 MG TAB PO SCH ×3 (11:06→21:11)
[2020-02-22] MEDS: MORPHINE 2 MG/1 ML INJ IV PRN ×2 (11:07→19:03)
--- NOTE | 2020-02-22 16:30 | Progress Note ---
Assessment and Plan Acute hypoxemic respiratory failure Bilateral pneumonia, community acquired. Acute LLL branch P.E. Acute DVT Person under investigation for COVID-19 infection. Acute congestive heart failure exacerbation. History of cerebrovascular accident. Acute chronic obstructive pulmonary disease exacerbation. Hypertension and hypertensive urgency at presentation. History of arthritis. Leukocytosis. Lactic acidosis. Oropharyngeal dysphagia - continue daily SAT's and SBT assessment as tolerated -Colace, Reglan for bowel regimen -Restart tube feedings and monitor - continue prn haldol for agitation to avoid hypoventilation - continue Flomax - Midodrine for blood pressure - prn mucomyst nebs re: secretions - continue full anticoagulation with Apixaban - continue seroquel for anxiolysis / delirium - continue to wean oxygen for O2 sats > 92% - continue bronchodilators with routine trach care and pulmonary hygiene per RT - continue Robinul & Scopolamine for secretion control - VAP bundle addressed (Aspiration precautions, HOB >40) - continue to wean per pulmonary driven protocols - continue prn analgesia per CPOT score - Avoid delirium (no benzodiazepines if they can be avoided) - Maintain sleep-wake cycle - enteral nutrition at goal rate as tolerated - continue accuchecks with glycemic control per SSI for target blood glucose goal of 140-180 mg/dL while critically ill; Avoid hypoglycemia - for VTE he is on IV Heparin - continue stress ulcer prophylaxis with Famotidine - continue mobility protocols for pressure ulcer prevention - continue fall precautions - continue wound care management per RN / WCT - Supportive transfusions to keep HgB>7g/dL - Continue to monitor neurologic function - Continue all supportive care ........ re-evaluate in am & prn CONDITION: CRITICAL PROGNOSIS: GUARDED CODE STATUS: FULL CODE The high probability of a clinically significant, sudden or life threatening deterioration of the [Respiratory, cardiovascular & neurological] system(s) required my full and direct attention, intervention and personal management. The aggregate critical care time was [32] minutes without overlap. Time includes spent on [x] Data Review and interpretation [x] Patient assessment and monitoring of vital signs [x] Documentation [x] Medication orders and management Subjective Date of service: 02/22/20 Principal diagnosis: Ac hypoxemic resp failure; Pneumonia; PUI COVID-19; CHF; COPD; HTN Interval history: Patient is seen today for: Acute hypoxemic respiratory failure; Adan. Pneumonia (CAP); PUI COVID-19 infection; AE-CHF; AE-COPD; H/O CVA; HTN; PE, DVT Seen and examined at bedside; 24 hour events reviewed; nursing and respiratory care staff consulted; no adverse overnight events reported to me; resting peacefully in bed; s/p trach on full support, awake and alert ,did not tolerate PSV today. No further episodes of vomiting Size#6 Shiley, Mouths words to make needs known, is interactive Objective Vital Signs - 12hr 02/22/20 02/22/20 02/22/20 04:30 04:40 05:00 Temperature Pulse Rate 82 103 H 98 H Pulse Rate [ From Monitor] Respiratory 23 24 Rate Blood Pressure 126/56 126/56 126/56 O2 Sat by Pulse 91 96 Oximetry O2 Sat by Pulse Oximetry [ Assessment] 02/22/20 02/22/20 02/22/20 05:30 06:00 06:30 Temperature Pulse Rate 84 98 H 88 Pulse Rate [ From Monitor] Respiratory 26 H 22 21 Rate Blood Pressure 125/79 115/59 108/67 O2 Sat by Pulse 96 95 95 Oximetry O2 Sat by Pulse Oximetry [ Assessment] 02/22/20 02/22/20 02/22/20 07:00 07:30 07:35 Temperature Pulse Rate 115 H 96 H 100 H Pulse Rate [ From Monitor] Respiratory 22 21 Rate Blood Pressure 108/67 112/76 112/76 O2 Sat by Pulse 97 96 98 Oximetry O2 Sat by Pulse 97 Oximetry [ Assessment] 02/22/20 02/22/20 02/22/20 07:50 08:00 08:30 Temperature 97.3 F L Pulse Rate 95 H 101 H 111 H Pulse Rate [ 91 H From Monitor] Respiratory 22 15 26 H Rate Blood Pressure 111/85 106/83 101/78 O2 Sat by Pulse 97 94 94 Oximetry O2 Sat by Pulse Oximetry [ Assessment] 02/22/20 02/22/20 02/22/20 09:00 09:30 10:00 Temperature Pulse Rate 85 100 H 110 H Pulse Rate [ From Monitor] Respiratory 23 21 26 H Rate Blood Pressure 101/78 112/82 109/87 O2 Sat by Pulse 100 95 93 Oximetry O2 Sat by Pulse Oximetry [ Assessment] 02/22/20 02/22/20 02/22/20 10:30 11:00 11:30 Temperature Pulse Rate 66 93 H 92 H Pulse Rate [ From Monitor] Respiratory 26 H 24 21 Rate Blood Pressure 111/85 112/80 111/76 O2 Sat by Pulse 96 Oximetry O2 Sat by Pulse Oximetry [ Assessment] 02/22/20 02/22/20 02/22/20 12:00 12:30 13:00 Temperature Pulse Rate 69 102 H 86 Pulse Rate [ 96 H From Monitor] Respiratory 23 25 H 28 H Rate Blood Pressure 112/81 122/82 121/79 O2 Sat by Pulse 95 96 94 Oximetry O2 Sat by Pulse Oximetry [ Assessment] 02/22/20 02/22/20 02/22/20 13:30 14:00 14:30 Temperature Pulse Rate 92 H 103 H 106 H Pulse Rate [ From Monitor] Respiratory 25 H 24 25 H Rate Blood Pressure 117/71 127/74 117/83 O2 Sat by Pulse 95 87 93 Oximetry O2 Sat by Pulse Oximetry [ Assessment] Constitutional: alert, other (elelelderly and obese male, normocephalic with mildly increased respiratory effort at rest) Eyes: non-icteric ENT: oropharynx moist, other (+ midline tracheostomy) Neck: supple, no JVD Effort: mildly labored Ascultation: Bilateral: clear, diminished breath sounds, rhonchi, other (tracheal secretions ) Percussion: Bilateral: not dull Cardiovascular: irregular rhythm Gastrointestinal: normoactive bowel sounds, soft, non-tender, non-distended (protuberant), other (protuberant; PEG in place) Integumentary: normal Extremities: no cyanosis, pulses normal, no ischemia or petechiae, edema (bilateral lower) Neurologic: non-focal exam (moves extremities), pupils equal and round, other (intermittent agitation) Psychiatric: anxious CBC and BMP: 03/09/20 06:32 03/09/20 06:32 ABG, PT/INR, D-dimer: ABG ABG pH 7.461 pH Units (7.350-7.450) H 02/20/20 06:45 POC ABG pCO2 34.8 mmHg (32.0-48.0) 02/11/20 14:11 ABG pCO2 47.8 mm Hg 02/20/20 06:45 POC ABG pO2 77.7 mmHg (83-108) L 02/11/20 14:11 ABG pO2 88.7 mm Hg (80.0-90.0) 02/20/20 06:45 POC ABG HCO3 26.7 02/11/20 14:11 ABG O2 Saturation 97.2 % (95.0-99.0) 02/20/20 06:45 PT/INR, D-dimer PT 27.0 Sec. (12.2-14.9) H 02/07/20 15:03 INR 2.46 (0.87-1.13) H 02/07/20 15:03 Abnormal lab findings: Abnormal Labs 11/24/19 11/24/19 11/24/19 02:53 02:53 03:45 WBC 14.3 H RBC Hgb Hct MCHC RDW 17.2 H MCV MCH Lymph % (Auto) Banks % (Auto) Banks # Eos # Lymph # (Auto) Banks # (Auto) Eos # (Auto) Seg Neutrophils % Seg Neuts % (Manual) Baso # (Auto) Lymphocytes % (Manual) Monocytes % (Manual) Eosinophils % (Manual) Basophils % (Manual) Seg Neutrophils # Seg Neutrophils # Man 8.3 H Lymphocytes # (Manual) Monocytes # (Manual) 0.9 H Eosinophils # (Manual) Nucleated RBC % Basophils # (Manual) PT INR APTT Heparin Anti-Xa Level ABG pH 7.313 L POC ABG pO2 ABG pO2 102.8 H ABG HCO3 ABG O2 Saturation ABG Base Excess -2.9 L POC ABG pCO2 ABG Hemoglobin ABG Oxyhemoglobin ABG Chloride ABG Glucose Oxyhemoglobin 93.9 L Sodium Potassium Chloride Carbon Dioxide BUN Creatinine Glucose 195 H POC Glucose Lactic Acid Calcium Phosphorus Magnesium AST ALT Lactate Dehydrogenase Total Bilirubin Direct Bilirubin CK-MB (CK-2) 4.3 H C-Reactive Protein NT-Pro-B Natriuret Pep 1181 H Total Protein Albumin Arterial Blood Glucose Urine WBC (Auto) Urine Creatinine 11/24/19 11/24/19 11/24/19 04:53 04:53 10:37 WBC RBC Hgb Hct MCHC RDW MCV MCH Lymph % (Auto) Banks % (Auto) Banks # Eos # Lymph # (Auto) Banks # (Auto) Eos # (Auto) Seg Neutrophils % Seg Neuts % (Manual) Baso # (Auto) Lymphocytes % (Manual) Monocytes % (Manual) Eosinophils % (Manual) Basophils % (Manual) Seg Neutrophils # Seg Neutrophils # Man Lymphocytes # (Manual) Monocytes # (Manual) Eosinophils # (Manual) Nucleated RBC % Basophils # (Manual) PT INR APTT Heparin Anti-Xa Level ABG pH POC ABG pO2 ABG pO2 ABG HCO3 ABG O2 Saturation ABG Base Excess POC ABG pCO2 ABG Hemoglobin ABG Oxyhemoglobin ABG Chloride ABG Glucose Oxyhemoglobin Sodium Potassium Chloride Carbon Dioxide BUN Creatinine Glucose 162 H POC Glucose Lactic Acid 2.40 H* 2.50 H* Calcium Phosphorus Magnesium AST ALT Lactate Dehydrogenase 240 H Total Bilirubin Direct Bilirubin CK-MB (CK-2) C-Reactive Protein NT-Pro-B Natriuret Pep Total Protein Albumin Arterial Blood Glucose Urine WBC (Auto) Urine Creatinine 11/24/19 11/24/19 11/24/19 12:21 14:50 19:54 WBC RBC Hgb Hct MCHC RDW MCV MCH Lymph % (Auto) Banks % (Auto) Banks # Eos # Lymph # (Auto) Banks # (Auto) Eos # (Auto) Seg Neutrophils % Seg Neuts % (Manual) Baso # (Auto) Lymphocytes % (Manual) Monocytes % (Manual) Eosinophils % (Manual) Basophils % (Manual) Seg Neutrophils # Seg Neutrophils # Man Lymphocytes # (Manual) Monocytes # (Manual) Eosinophils # (Manual) Nucleated RBC % Basophils # (Manual) PT INR APTT Heparin Anti-Xa Level ABG pH POC ABG pO2 ABG pO2 ABG HCO3 ABG O2 Saturation ABG Base Excess POC ABG pCO2 ABG Hemoglobin ABG Oxyhemoglobin ABG Chloride ABG Glucose Oxyhemoglobin Sodium Potassium Chloride Carbon Dioxide BUN Creatinine Glucose POC Glucose 145 H 143 H 124 H Lactic Acid Calcium Phosphorus Magnesium AST ALT Lactate Dehydrogenase Total Bilirubin Direct Bilirubin CK-MB (CK-2) C-Reactive Protein NT-Pro-B Natriuret Pep Total Protein Albumin Arterial Blood Glucose Urine WBC (Auto) Urine Creatinine 11/25/19 11/25/19 11/25/19 00:18 03:18 05:11 WBC 13.7 H RBC Hgb Hct MCHC RDW 17.1 H MCV MCH Lymph % (Auto) 10.8 L Banks % (Auto) 8.7 H Banks # 1.2 H Eos # Lymph # (Auto) Banks # (Auto) Eos # (Auto) Seg Neutrophils % 80.2 H Seg Neuts % (Manual) Baso # (Auto) Lymphocytes % (Manual) Monocytes % (Manual) Eosinophils % (Manual) Basophils % (Manual) Seg Neutrophils # 11.0 H Seg Neutrophils # Man Lymphocytes # (Manual) Monocytes # (Manual) Eosinophils # (Manual) Nucleated RBC % Basophils # (Manual) PT INR APTT Heparin Anti-Xa Level ABG pH 7.333 L POC ABG pO2 ABG pO2 61.2 L ABG HCO3 ABG O2 Saturation 90.2 L ABG Base Excess POC ABG pCO2 ABG Hemoglobin 13.7 L ABG Oxyhemoglobin ABG Chloride ABG Glucose Oxyhemoglobin 88.2 L Sodium Potassium Chloride Carbon Dioxide BUN Creatinine Glucose POC Glucose 109 H Lactic Acid Calcium Phosphorus Magnesium AST ALT Lactate Dehydrogenase Total Bilirubin Direct Bilirubin CK-MB (CK-2) C-Reactive Protein NT-Pro-B Natriuret Pep Total Protein Albumin Arterial Blood Glucose Urine WBC (Auto) Urine Creatinine 11/25/19 11/25/19 11/26/19 05:11 11:40 03:12 WBC RBC Hgb Hct MCHC RDW MCV MCH Lymph % (Auto) Banks % (Auto) Banks # Eos # Lymph # (Auto) Banks # (Auto) Eos # (Auto) Seg Neutrophils % Seg Neuts % (Manual) Baso # (Auto) Lymphocytes % (Manual) Monocytes % (Manual) Eosinophils % (Manual) Basophils % (Manual) Seg Neutrophils # Seg Neutrophils # Man Lymphocytes # (Manual) Monocytes # (Manual) Eosinophils # (Manual) Nucleated RBC % Basophils # (Manual) PT INR APTT Heparin Anti-Xa Level ABG pH POC ABG pO2 ABG pO2 155.1 H ABG HCO3 27.8 H ABG O2 Saturation ABG Base Excess POC ABG pCO2 ABG Hemoglobin 12.2 L ABG Oxyhemoglobin ABG Chloride ABG Glucose Oxyhemoglobin Sodium Potassium Chloride Carbon Dioxide BUN 23 H Creatinine Glucose 110 H POC Glucose 108 H Lactic Acid Calcium Phosphorus Magnesium AST ALT Lactate Dehydrogenase Total Bilirubin Direct Bilirubin CK-MB (CK-2) C-Reactive Protein NT-Pro-B Natriuret Pep Total Protein Albumin Arterial Blood Glucose Urine WBC (Auto) Urine Creatinine 11/26/19 11/26/19 11/26/19 06:17 10:43 10:43 WBC 11.4 H RBC Hgb Hct MCHC RDW 17.1 H MCV MCH Lymph % (Auto) Banks % (Auto) Banks # Eos # Lymph # (Auto) Banks # (Auto) Eos # (Auto) Seg Neutrophils % Seg Neuts % (Manual) Baso # (Auto) Lymphocytes % (Manual) Monocytes % (Manual) Eosinophils % (Manual) Basophils % (Manual) Seg Neutrophils # Seg Neutrophils # Man Lymphocytes # (Manual) Monocytes # (Manual) Eosinophils # (Manual) Nucleated RBC % Basophils # (Manual) PT INR APTT Heparin Anti-Xa Level ABG pH POC ABG pO2 ABG pO2 ABG HCO3 ABG O2 Saturation ABG Base Excess POC ABG pCO2 ABG Hemoglobin ABG Oxyhemoglobin ABG Chloride ABG Glucose Oxyhemoglobin Sodium Potassium Chloride Carbon Dioxide BUN 29 H Creatinine Glucose POC Glucose 107 H Lactic Acid Calcium Phosphorus Magnesium AST ALT Lactate Dehydrogenase Total Bilirubin Direct Bilirubin CK-MB (CK-2) C-Reactive Protein NT-Pro-B Natriuret Pep Total Protein Albumin Arterial Blood Glucose Urine WBC (Auto) Urine Creatinine 11/26/19 11/27/19 11/27/19 17:11 01:53 04:11 WBC RBC Hgb Hct MCHC RDW MCV MCH Lymph % (Auto) Banks % (Auto) Banks # Eos # Lymph # (Auto) Banks # (Auto) Eos # (Auto) Seg Neutrophils % Seg Neuts % (Manual) Baso # (Auto) Lymphocytes % (Manual) Monocytes % (Manual) Eosinophils % (Manual) Basophils % (Manual) Seg Neutrophils # Seg Neutrophils # Man Lymphocytes # (Manual) Monocytes # (Manual) Eosinophils # (Manual) Nucleated RBC % Basophils # (Manual) PT INR APTT Heparin Anti-Xa Level ABG pH POC ABG pO2 ABG pO2 ABG HCO3 29.2 H ABG O2 Saturation ABG Base Excess 3.4 H POC ABG pCO2 ABG Hemoglobin 13.3 L ABG Oxyhemoglobin ABG Chloride ABG Glucose Oxyhemoglobin 94.5 L Sodium Potassium Chloride Carbon Dioxide BUN Creatinine Glucose POC Glucose 113 H 108 H Lactic Acid Calcium Phosphorus Magnesium AST ALT Lactate Dehydrogenase Total Bilirubin Direct Bilirubin CK-MB (CK-2) C-Reactive Protein NT-Pro-B Natriuret Pep Total Protein Albumin Arterial Blood Glucose Urine WBC (Auto) Urine Creatinine 11/27/19 11/28/19 11/28/19 05:27 05:00 05:25 WBC RBC Hgb Hct MCHC RDW MCV MCH Lymph % (Auto) Banks % (Auto) Banks # Eos # Lymph # (Auto) Banks # (Auto) Eos # (Auto) Seg Neutrophils % Seg Neuts % (Manual) Baso # (Auto) Lymphocytes % (Manual) Monocytes % (Manual) Eosinophils % (Manual) Basophils % (Manual) Seg Neutrophils # Seg Neutrophils # Man Lymphocytes # (Manual) Monocytes # (Manual) Eosinophils # (Manual) Nucleated RBC % Basophils # (Manual) PT INR APTT Heparin Anti-Xa Level ABG pH POC ABG pO2 68.1 L ABG pO2 ABG HCO3 ABG O2 Saturation ABG Base Excess POC ABG pCO2 ABG Hemoglobin ABG Oxyhemoglobin 91.2 L ABG Chloride ABG Glucose Oxyhemoglobin Sodium Potassium Chloride Carbon Dioxide BUN Creatinine Glucose POC Glucose 111 H 110 H Lactic Acid Calcium Phosphorus Magnesium AST ALT Lactate Dehydrogenase Total Bilirubin Direct Bilirubin CK-MB (CK-2) C-Reactive Protein NT-Pro-B Natriuret Pep Total Protein Albumin Arterial Blood Glucose Urine WBC (Auto) Urine Creatinine 11/28/19 11/28/19 11/28/19 12:08 13:47 13:47 WBC 11.3 H RBC Hgb Hct MCHC RDW 16.1 H MCV MCH Lymph % (Auto) Banks % (Auto) 9.9 H Banks # 1.1 H Eos # Lymph # (Auto) Banks # (Auto) Eos # (Auto) Seg Neutrophils % 71.4 H Seg Neuts % (Manual) Baso # (Auto) Lymphocytes % (Manual) Monocytes % (Manual) Eosinophils % (Manual) Basophils % (Manual) Seg Neutrophils # 8.1 H Seg Neutrophils # Man Lymphocytes # (Manual) Monocytes # (Manual) Eosinophils # (Manual) Nucleated RBC % Basophils # (Manual) PT INR APTT Heparin Anti-Xa Level ABG pH POC ABG pO2 ABG pO2 ABG HCO3 ABG O2 Saturation ABG Base Excess POC ABG pCO2 ABG Hemoglobin ABG Oxyhemoglobin ABG Chloride ABG Glucose Oxyhemoglobin Sodium Potassium Chloride Carbon Dioxide BUN 23 H Creatinine Glucose 123 H POC Glucose 112 H Lactic Acid Calcium Phosphorus Magnesium AST ALT Lactate Dehydrogenase Total Bilirubin Direct Bilirubin CK-MB (CK-2) C-Reactive Protein NT-Pro-B Natriuret Pep Total Protein Albumin 3.7 L Arterial Blood Glucose Urine WBC (Auto) Urine Creatinine 11/28/19 11/29/19 11/29/19 17:26 03:55 17:04 WBC RBC Hgb Hct MCHC RDW MCV MCH Lymph % (Auto) Banks % (Auto) Banks # Eos # Lymph # (Auto) Banks # (Auto) Eos # (Auto) Seg Neutrophils % Seg Neuts % (Manual) Baso # (Auto) Lymphocytes % (Manual) Monocytes % (Manual) Eosinophils % (Manual) Basophils % (Manual) Seg Neutrophils # Seg Neutrophils # Man Lymphocytes # (Manual) Monocytes # (Manual) Eosinophils # (Manual) Nucleated RBC % Basophils # (Manual) PT INR APTT Heparin Anti-Xa Level ABG pH POC ABG pO2 ABG pO2 65.7 L ABG HCO3 28.3 H ABG O2 Saturation 93.9 L ABG Base Excess 3.6 H POC ABG pCO2 ABG Hemoglobin 13.3 L ABG Oxyhemoglobin ABG Chloride ABG Glucose Oxyhemoglobin 91.5 L Sodium Potassium Chloride Carbon Dioxide BUN Creatinine Glucose POC Glucose 123 H 119 H Lactic Acid Calcium Phosphorus Magnesium AST ALT Lactate Dehydrogenase Total Bilirubin Direct Bilirubin CK-MB (CK-2) C-Reactive Protein NT-Pro-B Natriuret Pep Total Protein Albumin Arterial Blood Glucose Urine WBC (Auto) Urine Creatinine 11/30/19 11/30/19 11/30/19 04:17 04:17 04:56 WBC 13.4 H RBC Hgb Hct MCHC RDW 15.6 H MCV MCH Lymph % (Auto) Banks % (Auto) Banks # Eos # Lymph # (Auto) Banks # (Auto) Eos # (Auto) Seg Neutrophils % Seg Neuts % (Manual) Baso # (Auto) Lymphocytes % (Manual) Monocytes % (Manual) Eosinophils % (Manual) Basophils % (Manual) Seg Neutrophils # Seg Neutrophils # Man Lymphocytes # (Manual) Monocytes # (Manual) Eosinophils # (Manual) Nucleated RBC % Basophils # (Manual) PT INR APTT Heparin Anti-Xa Level ABG pH POC ABG pO2 ABG pO2 56.3 L ABG HCO3 29.3 H ABG O2 Saturation 91.5 L ABG Base Excess 4.7 H POC ABG pCO2 ABG Hemoglobin 12.1 L ABG Oxyhemoglobin ABG Chloride ABG Glucose Oxyhemoglobin 89.2 L Sodium 147 H Potassium Chloride Carbon Dioxide BUN 30 H Creatinine Glucose 124 H POC Glucose Lactic Acid Calcium Phosphorus Magnesium AST ALT Lactate Dehydrogenase Total Bilirubin Direct Bilirubin CK-MB (CK-2) C-Reactive Protein NT-Pro-B Natriuret Pep Total Protein Albumin 3.8 L Arterial Blood Glucose Urine WBC (Auto) Urine Creatinine 11/30/19 11/30/19 11/30/19 05:51 11:54 18:17 WBC RBC Hgb Hct MCHC RDW MCV MCH Lymph % (Auto) Banks % (Auto) Banks # Eos # Lymph # (Auto) Banks # (Auto) Eos # (Auto) Seg Neutrophils % Seg Neuts % (Manual) Baso # (Auto) Lymphocytes % (Manual) Monocytes % (Manual) Eosinophils % (Manual) Basophils % (Manual) Seg Neutrophils # Seg Neutrophils # Man Lymphocytes # (Manual) Monocytes # (Manual) Eosinophils # (Manual) Nucleated RBC % Basophils # (Manual) PT INR APTT Heparin Anti-Xa Level ABG pH POC ABG pO2 ABG pO2 ABG HCO3 ABG O2 Saturation ABG Base Excess POC ABG pCO2 ABG Hemoglobin ABG Oxyhemoglobin ABG Chloride ABG Glucose Oxyhemoglobin Sodium Potassium Chloride Carbon Dioxide BUN Creatinine Glucose POC Glucose 127 H 115 H 143 H Lactic Acid Calcium Phosphorus Magnesium AST ALT Lactate Dehydrogenase Total Bilirubin Direct Bilirubin CK-MB (CK-2) C-Reactive Protein NT-Pro-B Natriuret Pep Total Protein Albumin Arterial Blood Glucose Urine WBC (Auto) Urine Creatinine 12/01/19 12/01/19 12/01/19 01:18 05:22 12:16 WBC RBC Hgb Hct MCHC RDW MCV MCH Lymph % (Auto) Banks % (Auto) Banks # Eos # Lymph # (Auto) Banks # (Auto) Eos # (Auto) Seg Neutrophils % Seg Neuts % (Manual) Baso # (Auto) Lymphocytes % (Manual) Monocytes % (Manual) Eosinophils % (Manual) Basophils % (Manual) Seg Neutrophils # Seg Neutrophils # Man Lymphocytes # (Manual) Monocytes # (Manual) Eosinophils # (Manual) Nucleated RBC % Basophils # (Manual) PT INR APTT Heparin Anti-Xa Level ABG pH POC ABG pO2 ABG pO2 ABG HCO3 ABG O2 Saturation ABG Base Excess POC ABG pCO2 ABG Hemoglobin ABG Oxyhemoglobin ABG Chloride ABG Glucose Oxyhemoglobin Sodium Potassium 3.5 L Chloride 107.8 H Carbon Dioxide BUN 37 H Creatinine Glucose 157 H POC Glucose 118 H 148 H Lactic Acid Calcium 8.2 L D Phosphorus Magnesium AST 48 H ALT 60 H Lactate Dehydrogenase 194 H Total Bilirubin Direct Bilirubin CK-MB (CK-2) C-Reactive Protein 8.50 H NT-Pro-B Natriuret Pep Total Protein 5.5 L Albumin 2.8 L Arterial Blood Glucose Urine WBC (Auto) Urine Creatinine 12/01/19 12/02/19 12/02/19 18:04 00:05 05:16 WBC 11.4 H RBC Hgb Hct MCHC RDW 15.9 H MCV MCH Lymph % (Auto) Banks % (Auto) 9.9 H Banks # 1.1 H Eos # Lymph # (Auto) Banks # (Auto) Eos # (Auto) Seg Neutrophils % 70.3 H Seg Neuts % (Manual) Baso # (Auto) Lymphocytes % (Manual) Monocytes % (Manual) Eosinophils % (Manual) Basophils % (Manual) Seg Neutrophils # 8.0 H Seg Neutrophils # Man Lymphocytes # (Manual) Monocytes # (Manual) Eosinophils # (Manual) Nucleated RBC % Basophils # (Manual) PT INR APTT Heparin Anti-Xa Level ABG pH POC ABG pO2 ABG pO2 ABG HCO3 ABG O2 Saturation ABG Base Excess POC ABG pCO2 ABG Hemoglobin ABG Oxyhemoglobin ABG Chloride ABG Glucose Oxyhemoglobin Sodium Potassium Chloride Carbon Dioxide BUN Creatinine Glucose POC Glucose 143 H 107 H Lactic Acid Calcium Phosphorus Magnesium AST ALT Lactate Dehydrogenase Total Bilirubin Direct Bilirubin CK-MB (CK-2) C-Reactive Protein NT-Pro-B Natriuret Pep Total Protein Albumin Arterial Blood Glucose Urine WBC (Auto) Urine Creatinine 12/02/19 12/02/19 12/02/19 05:16 06:03 11:52 WBC RBC Hgb Hct MCHC RDW MCV MCH Lymph % (Auto) Banks % (Auto) Banks # Eos # Lymph # (Auto) Banks # (Auto) Eos # (Auto) Seg Neutrophils % Seg Neuts % (Manual) Baso # (Auto) Lymphocytes % (Manual) Monocytes % (Manual) Eosinophils % (Manual) Basophils % (Manual) Seg Neutrophils # Seg Neutrophils # Man Lymphocytes # (Manual) Monocytes # (Manual) Eosinophils # (Manual) Nucleated RBC % Basophils # (Manual) PT INR APTT Heparin Anti-Xa Level ABG pH POC ABG pO2 ABG pO2 ABG HCO3 ABG O2 Saturation ABG Base Excess POC ABG pCO2 ABG Hemoglobin ABG Oxyhemoglobin ABG Chloride ABG Glucose Oxyhemoglobin Sodium 146 H Potassium Chloride Carbon Dioxide BUN 28 H Creatinine Glucose 123 H POC Glucose 110 H 152 H Lactic Acid Calcium Phosphorus Magnesium AST ALT Lactate Dehydrogenase Total Bilirubin Direct Bilirubin CK-MB (CK-2) C-Reactive Protein NT-Pro-B Natriuret Pep Total Protein Albumin Arterial Blood Glucose Urine WBC (Auto) Urine Creatinine 12/02/19 12/02/19 12/02/19 12:58 17:58 23:36 WBC RBC Hgb Hct MCHC RDW MCV MCH Lymph % (Auto) Banks % (Auto) Banks # Eos # Lymph # (Auto) Banks # (Auto) Eos # (Auto) Seg Neutrophils % Seg Neuts % (Manual) Baso # (Auto) Lymphocytes % (Manual) Monocytes % (Manual) Eosinophils % (Manual) Basophils % (Manual) Seg Neutrophils # Seg Neutrophils # Man Lymphocytes # (Manual) Monocytes # (Manual) Eosinophils # (Manual) Nucleated RBC % Basophils # (Manual) PT INR APTT Heparin Anti-Xa Level ABG pH POC ABG pO2 78.1 L ABG pO2 ABG HCO3 ABG O2 Saturation ABG Base Excess POC ABG pCO2 ABG Hemoglobin ABG Oxyhemoglobin ABG Chloride ABG Glucose Oxyhemoglobin Sodium Potassium Chloride Carbon Dioxide BUN Creatinine Glucose POC Glucose 120 H 123 H Lactic Acid Calcium Phosphorus Magnesium AST ALT Lactate Dehydrogenase Total Bilirubin Direct Bilirubin CK-MB (CK-2) C-Reactive Protein NT-Pro-B Natriuret Pep Total Protein Albumin Arterial Blood Glucose Urine WBC (Auto) Urine Creatinine 12/03/19 12/03/19 12/03/19 06:03 06:14 11:46 WBC RBC Hgb Hct MCHC RDW MCV MCH Lymph % (Auto) Banks % (Auto) Banks # Eos # Lymph # (Auto) Banks # (Auto) Eos # (Auto) Seg Neutrophils % Seg Neuts % (Manual) Baso # (Auto) Lymphocytes % (Manual) Monocytes % (Manual) Eosinophils % (Manual) Basophils % (Manual) Seg Neutrophils # Seg Neutrophils # Man Lymphocytes # (Manual) Monocytes # (Manual) Eosinophils # (Manual) Nucleated RBC % Basophils # (Manual) PT INR APTT Heparin Anti-Xa Level ABG pH POC ABG pO2 ABG pO2 ABG HCO3 ABG O2 Saturation ABG Base Excess POC ABG pCO2 ABG Hemoglobin ABG Oxyhemoglobin ABG Chloride ABG Glucose Oxyhemoglobin Sodium Potassium Chloride Carbon Dioxide BUN Creatinine Glucose POC Glucose 142 H 130 H Lactic Acid Calcium Phosphorus Magnesium AST ALT Lactate Dehydrogenase Total Bilirubin Direct Bilirubin CK-MB (CK-2) C-Reactive Protein NT-Pro-B Natriuret Pep Total Protein Albumin Arterial Blood Glucose Urine WBC (Auto) 8.0 H Urine Creatinine 12/03/19 12/03/19 12/04/19 15:50 17:39 00:04 WBC RBC Hgb Hct MCHC RDW MCV MCH Lymph % (Auto) Banks % (Auto) Banks # Eos # Lymph # (Auto) Banks # (Auto) Eos # (Auto) Seg Neutrophils % Seg Neuts % (Manual) Baso # (Auto) Lymphocytes % (Manual) Monocytes % (Manual) Eosinophils % (Manual) Basophils % (Manual) Seg Neutrophils # Seg Neutrophils # Man Lymphocytes # (Manual) Monocytes # (Manual) Eosinophils # (Manual) Nucleated RBC % Basophils # (Manual) PT INR APTT Heparin Anti-Xa Level ABG pH POC ABG pO2 ABG pO2 ABG HCO3 ABG O2 Saturation ABG Base Excess POC ABG pCO2 ABG Hemoglobin ABG Oxyhemoglobin ABG Chloride ABG Glucose Oxyhemoglobin Sodium Potassium Chloride Carbon Dioxide BUN Creatinine Glucose POC Glucose 146 H 133 H Lactic Acid Calcium Phosphorus 2.40 L Magnesium AST ALT Lactate Dehydrogenase Total Bilirubin Direct Bilirubin CK-MB (CK-2) C-Reactive Protein NT-Pro-B Natriuret Pep Total Protein Albumin Arterial Blood Glucose Urine WBC (Auto) Urine Creatinine 12/04/19 12/04/19 12/04/19 03:58 03:58 05:22 WBC 12.5 H RBC Hgb 11.2 L Hct 35.2 L MCHC RDW 16.0 H MCV MCH Lymph % (Auto) Banks % (Auto) 9.6 H Banks # 1.2 H Eos # 0.5 H Lymph # (Auto) Banks # (Auto) Eos # (Auto) Seg Neutrophils % Seg Neuts % (Manual) Baso # (Auto) Lymphocytes % (Manual) Monocytes % (Manual) Eosinophils % (Manual) Basophils % (Manual) Seg Neutrophils # 8.6 H Seg Neutrophils # Man Lymphocytes # (Manual) Monocytes # (Manual) Eosinophils # (Manual) Nucleated RBC % Basophils # (Manual) PT INR APTT Heparin Anti-Xa Level ABG pH POC ABG pO2 ABG pO2 ABG HCO3 ABG O2 Saturation ABG Base Excess POC ABG pCO2 ABG Hemoglobin ABG Oxyhemoglobin ABG Chloride ABG Glucose Oxyhemoglobin Sodium 146 H Potassium Chloride 108.6 H Carbon Dioxide BUN 30 H Creatinine 0.7 L Glucose 121 H POC Glucose 132 H Lactic Acid Calcium Phosphorus Magnesium AST ALT Lactate Dehydrogenase Total Bilirubin Direct Bilirubin CK-MB (CK-2) C-Reactive Protein NT-Pro-B Natriuret Pep Total Protein Albumin Arterial Blood Glucose Urine WBC (Auto) Urine Creatinine 12/04/19 12/04/19 12/05/19 13:26 18:43 00:19 WBC RBC Hgb Hct MCHC RDW MCV MCH Lymph % (Auto) Banks % (Auto) Banks # Eos # Lymph # (Auto) Banks # (Auto) Eos # (Auto) Seg Neutrophils % Seg Neuts % (Manual) Baso # (Auto) Lymphocytes % (Manual) Monocytes % (Manual) Eosinophils % (Manual) Basophils % (Manual) Seg Neutrophils # Seg Neutrophils # Man Lymphocytes # (Manual) Monocytes # (Manual) Eosinophils # (Manual) Nucleated RBC % Basophils # (Manual) PT INR APTT Heparin Anti-Xa Level ABG pH POC ABG pO2 ABG pO2 ABG HCO3 ABG O2 Saturation ABG Base Excess POC ABG pCO2 ABG Hemoglobin ABG Oxyhemoglobin ABG Chloride ABG Glucose Oxyhemoglobin Sodium Potassium Chloride Carbon Dioxide BUN Creatinine Glucose POC Glucose 185 H 156 H 150 H Lactic Acid Calcium Phosphorus Magnesium AST ALT Lactate Dehydrogenase Total Bilirubin Direct Bilirubin CK-MB (CK-2) C-Reactive Protein NT-Pro-B Natriuret Pep Total Protein Albumin Arterial Blood Glucose Urine WBC (Auto) Urine Creatinine 12/05/19 12/05/19 12/05/19 03:37 03:37 05:14 WBC 16.3 H RBC Hgb 11.4 L Hct MCHC RDW 15.6 H MCV MCH Lymph % (Auto) 9.9 L Banks % (Auto) 9.7 H Banks # 1.6 H Eos # Lymph # (Auto) Banks # (Auto) Eos # (Auto) Seg Neutrophils % 78.0 H Seg Neuts % (Manual) Baso # (Auto) Lymphocytes % (Manual) Monocytes % (Manual) Eosinophils % (Manual) Basophils % (Manual) Seg Neutrophils # 12.7 H Seg Neutrophils # Man Lymphocytes # (Manual) Monocytes # (Manual) Eosinophils # (Manual) Nucleated RBC % Basophils # (Manual) PT INR APTT Heparin Anti-Xa Level ABG pH POC ABG pO2 ABG pO2 ABG HCO3 ABG O2 Saturation ABG Base Excess POC ABG pCO2 ABG Hemoglobin ABG Oxyhemoglobin ABG Chloride ABG Glucose Oxyhemoglobin Sodium 146 H Potassium Chloride 107.2 H Carbon Dioxide BUN 27 H Creatinine 0.7 L Glucose 171 H POC Glucose 168 H Lactic Acid Calcium Phosphorus Magnesium AST ALT Lactate Dehydrogenase Total Bilirubin Direct Bilirubin CK-MB (CK-2) C-Reactive Protein NT-Pro-B Natriuret Pep Total Protein Albumin Arterial Blood Glucose Urine WBC (Auto) Urine Creatinine 12/05/19 12/05/19 12/05/19 12:31 18:10 23:58 WBC RBC Hgb Hct MCHC RDW MCV MCH Lymph % (Auto) Banks % (Auto) Banks # Eos # Lymph # (Auto) Banks # (Auto) Eos # (Auto) Seg Neutrophils % Seg Neuts % (Manual) Baso # (Auto) Lymphocytes % (Manual) Monocytes % (Manual) Eosinophils % (Manual) Basophils % (Manual) Seg Neutrophils # Seg Neutrophils # Man Lymphocytes # (Manual) Monocytes # (Manual) Eosinophils # (Manual) Nucleated RBC % Basophils # (Manual) PT INR APTT Heparin Anti-Xa Level ABG pH POC ABG pO2 ABG pO2 ABG HCO3 ABG O2 Saturation ABG Base Excess POC ABG pCO2 ABG Hemoglobin ABG Oxyhemoglobin ABG Chloride ABG Glucose Oxyhemoglobin Sodium Potassium Chloride Carbon Dioxide BUN Creatinine Glucose POC Glucose 159 H 198 H 115 H Lactic Acid Calcium Phosphorus Magnesium AST ALT Lactate Dehydrogenase Total Bilirubin Direct Bilirubin CK-MB (CK-2) C-Reactive Protein NT-Pro-B Natriuret Pep Total Protein Albumin Arterial Blood Glucose Urine WBC (Auto) Urine Creatinine 12/06/19 12/06/19 12/06/19 05:24 05:24 05:25 WBC 14.9 H RBC Hgb 10.8 L Hct 34.0 L MCHC RDW 15.6 H MCV MCH Lymph % (Auto) 10.7 L Banks % (Auto) 8.3 H Banks # 1.2 H Eos # Lymph # (Auto) Banks # (Auto) Eos # (Auto) Seg Neutrophils % 78.7 H Seg Neuts % (Manual) Baso # (Auto) Lymphocytes % (Manual) Monocytes % (Manual) Eosinophils % (Manual) Basophils % (Manual) Seg Neutrophils # 11.7 H Seg Neutrophils # Man Lymphocytes # (Manual) Monocytes # (Manual) Eosinophils # (Manual) Nucleated RBC % Basophils # (Manual) PT INR APTT Heparin Anti-Xa Level ABG pH POC ABG pO2 ABG pO2 ABG HCO3 ABG O2 Saturation ABG Base Excess POC ABG pCO2 ABG Hemoglobin ABG Oxyhemoglobin ABG Chloride ABG Glucose Oxyhemoglobin Sodium 148 H Potassium 5.1 H Chloride 107.6 H Carbon Dioxide BUN 27 H Creatinine 0.7 L Glucose 155 H POC Glucose 157 H Lactic Acid Calcium Phosphorus Magnesium AST ALT Lactate Dehydrogenase Total Bilirubin Direct Bilirubin CK-MB (CK-2) C-Reactive Protein NT-Pro-B Natriuret Pep Total Protein Albumin Arterial Blood Glucose Urine WBC (Auto) Urine Creatinine 12/07/19 12/07/19 12/07/19 00:13 05:34 11:33 WBC RBC Hgb Hct MCHC RDW MCV MCH Lymph % (Auto) Banks % (Auto) Banks # Eos # Lymph # (Auto) Banks # (Auto) Eos # (Auto) Seg Neutrophils % Seg Neuts % (Manual) Baso # (Auto) Lymphocytes % (Manual) Monocytes % (Manual) Eosinophils % (Manual) Basophils % (Manual) Seg Neutrophils # Seg Neutrophils # Man Lymphocytes # (Manual) Monocytes # (Manual) Eosinophils # (Manual) Nucleated RBC % Basophils # (Manual) PT INR APTT Heparin Anti-Xa Level ABG pH POC ABG pO2 ABG pO2 ABG HCO3 ABG O2 Saturation ABG Base Excess POC ABG pCO2 ABG Hemoglobin ABG Oxyhemoglobin ABG Chloride ABG Glucose Oxyhemoglobin Sodium Potassium Chloride Carbon Dioxide BUN Creatinine Glucose POC Glucose 142 H 111 H 169 H Lactic Acid Calcium Phosphorus Magnesium AST ALT Lactate Dehydrogenase Total Bilirubin Direct Bilirubin CK-MB (CK-2) C-Reactive Protein NT-Pro-B Natriuret Pep Total Protein Albumin Arterial Blood Glucose Urine WBC (Auto) Urine Creatinine 12/07/19 12/07/19 12/07/19 12:41 13:25 18:19 WBC 12.4 H RBC 3.53 L Hgb 10.2 L Hct 32.1 L MCHC RDW 15.3 H MCV MCH Lymph % (Auto) 10.6 L Banks % (Auto) 7.8 H Banks # 1.0 H Eos # Lymph # (Auto) Banks # (Auto) Eos # (Auto) Seg Neutrophils % 77.6 H Seg Neuts % (Manual) Baso # (Auto) Lymphocytes % (Manual) Monocytes % (Manual) Eosinophils % (Manual) Basophils % (Manual) Seg Neutrophils # 9.6 H Seg Neutrophils # Man Lymphocytes # (Manual) Monocytes # (Manual) Eosinophils # (Manual) Nucleated RBC % Basophils # (Manual) PT INR APTT Heparin Anti-Xa Level ABG pH POC ABG pO2 ABG pO2 ABG HCO3 ABG O2 Saturation ABG Base Excess POC ABG pCO2 ABG Hemoglobin ABG Oxyhemoglobin ABG Chloride ABG Glucose Oxyhemoglobin Sodium 149 H Potassium Chloride 108.4 H Carbon Dioxide BUN 26 H Creatinine 0.6 L Glucose 149 H POC Glucose 164 H Lactic Acid Calcium Phosphorus Magnesium 2.60 H AST 121 H ALT 145 H Lactate Dehydrogenase Total Bilirubin Direct Bilirubin CK-MB (CK-2) C-Reactive Protein NT-Pro-B Natriuret Pep Total Protein Albumin 2.6 L Arterial Blood Glucose Urine WBC (Auto) Urine Creatinine 12/07/19 12/08/19 12/08/19 22:25 00:02 03:55 WBC 13.3 H RBC 3.40 L Hgb 9.7 L Hct 30.8 L MCHC 31 L RDW 15.5 H MCV MCH Lymph % (Auto) Banks % (Auto) 8.1 H Banks # 1.1 H Eos # Lymph # (Auto) Banks # (Auto) Eos # (Auto) Seg Neutrophils % 73.0 H Seg Neuts % (Manual) Baso # (Auto) Lymphocytes % (Manual) Monocytes % (Manual) Eosinophils % (Manual) Basophils % (Manual) Seg Neutrophils # 9.7 H Seg Neutrophils # Man Lymphocytes # (Manual) Monocytes # (Manual) Eosinophils # (Manual) Nucleated RBC % Basophils # (Manual) PT INR APTT Heparin Anti-Xa Level 0.12 L ABG pH POC ABG pO2 ABG pO2 ABG HCO3 ABG O2 Saturation ABG Base Excess POC ABG pCO2 ABG Hemoglobin ABG Oxyhemoglobin ABG Chloride ABG Glucose Oxyhemoglobin Sodium Potassium Chloride Carbon Dioxide BUN Creatinine Glucose POC Glucose 151 H Lactic Acid Calcium Phosphorus Magnesium AST ALT Lactate Dehydrogenase Total Bilirubin Direct Bilirubin CK-MB (CK-2) C-Reactive Protein NT-Pro-B Natriuret Pep Total Protein Albumin Arterial Blood Glucose Urine WBC (Auto) Urine Creatinine 12/08/19 12/08/19 12/08/19 03:55 05:21 06:01 WBC RBC Hgb Hct MCHC RDW MCV MCH Lymph % (Auto) Banks % (Auto) Banks # Eos # Lymph # (Auto) Banks # (Auto) Eos # (Auto) Seg Neutrophils % Seg Neuts % (Manual) Baso # (Auto) Lymphocytes % (Manual) Monocytes % (Manual) Eosinophils % (Manual) Basophils % (Manual) Seg Neutrophils # Seg Neutrophils # Man Lymphocytes # (Manual) Monocytes # (Manual) Eosinophils # (Manual) Nucleated RBC % Basophils # (Manual) PT INR APTT Heparin Anti-Xa Level 0.20 L ABG pH POC ABG pO2 ABG pO2 ABG HCO3 ABG O2 Saturation ABG Base Excess POC ABG pCO2 ABG Hemoglobin ABG Oxyhemoglobin ABG Chloride ABG Glucose Oxyhemoglobin Sodium 149 H Potassium Chloride 108.0 H Carbon Dioxide BUN 28 H Creatinine 0.6 L Glucose 144 H POC Glucose 143 H Lactic Acid Calcium Phosphorus Magnesium AST 98 H ALT 145 H Lactate Dehydrogenase Total Bilirubin Direct Bilirubin CK-MB (CK-2) C-Reactive Protein NT-Pro-B Natriuret Pep Total Protein 6.0 L Albumin 2.4 L Arterial Blood Glucose Urine WBC (Auto) Urine Creatinine 12/08/19 12/08/19 12/08/19 12:08 18:11 23:53 WBC RBC Hgb Hct MCHC RDW MCV MCH Lymph % (Auto) Banks % (Auto) Banks # Eos # Lymph # (Auto) Banks # (Auto) Eos # (Auto) Seg Neutrophils % Seg Neuts % (Manual) Baso # (Auto) Lymphocytes % (Manual) Monocytes % (Manual) Eosinophils % (Manual) Basophils % (Manual) Seg Neutrophils # Seg Neutrophils # Man Lymphocytes # (Manual) Monocytes # (Manual) Eosinophils # (Manual) Nucleated RBC % Basophils # (Manual) PT INR APTT Heparin Anti-Xa Level ABG pH POC ABG pO2 ABG pO2 ABG HCO3 ABG O2 Saturation ABG Base Excess POC ABG pCO2 ABG Hemoglobin ABG Oxyhemoglobin ABG Chloride ABG Glucose Oxyhemoglobin Sodium Potassium Chloride Carbon Dioxide BUN Creatinine Glucose POC Glucose 172 H 122 H 162 H Lactic Acid Calcium Phosphorus Magnesium AST ALT Lactate Dehydrogenase Total Bilirubin Direct Bilirubin CK-MB (CK-2) C-Reactive Protein NT-Pro-B Natriuret Pep Total Protein Albumin Arterial Blood Glucose Urine WBC (Auto) Urine Creatinine 12/09/19 12/09/19 12/09/19 04:03 04:03 05:53 WBC RBC Hgb 9.1 L Hct 28.9 L MCHC RDW MCV MCH Lymph % (Auto) Banks % (Auto) Banks # Eos # Lymph # (Auto) Banks # (Auto) Eos # (Auto) Seg Neutrophils % Seg Neuts % (Manual) Baso # (Auto) Lymphocytes % (Manual) Monocytes % (Manual) Eosinophils % (Manual) Basophils % (Manual) Seg Neutrophils # Seg Neutrophils # Man Lymphocytes # (Manual) Monocytes # (Manual) Eosinophils # (Manual) Nucleated RBC % Basophils # (Manual) PT INR APTT Heparin Anti-Xa Level 0.15 L ABG pH POC ABG pO2 ABG pO2 ABG HCO3 ABG O2 Saturation ABG Base Excess POC ABG pCO2 ABG Hemoglobin ABG Oxyhemoglobin ABG Chloride ABG Glucose Oxyhemoglobin Sodium Potassium Chloride Carbon Dioxide BUN Creatinine Glucose POC Glucose 124 H Lactic Acid Calcium Phosphorus Magnesium AST ALT Lactate Dehydrogenase Total Bilirubin Direct Bilirubin CK-MB (CK-2) C-Reactive Protein NT-Pro-B Natriuret Pep Total Protein Albumin Arterial Blood Glucose Urine WBC (Auto) Urine Creatinine 12/09/19 12/09/19 12/10/19 09:43 12:41 00:13 WBC RBC Hgb Hct MCHC RDW MCV MCH Lymph % (Auto) Banks % (Auto) Banks # Eos # Lymph # (Auto) Banks # (Auto) Eos # (Auto) Seg Neutrophils % Seg Neuts % (Manual) Baso # (Auto) Lymphocytes % (Manual) Monocytes % (Manual) Eosinophils % (Manual) Basophils % (Manual) Seg Neutrophils # Seg Neutrophils # Man Lymphocytes # (Manual) Monocytes # (Manual) Eosinophils # (Manual) Nucleated RBC % Basophils # (Manual) PT INR APTT Heparin Anti-Xa Level ABG pH POC ABG pO2 ABG pO2 ABG HCO3 ABG O2 Saturation ABG Base Excess POC ABG pCO2 ABG Hemoglobin ABG Oxyhemoglobin ABG Chloride ABG Glucose Oxyhemoglobin Sodium Potassium Chloride Carbon Dioxide BUN 25 H Creatinine 0.6 L Glucose 131 H POC Glucose 109 H 120 H Lactic Acid Calcium Phosphorus Magnesium AST ALT Lactate Dehydrogenase Total Bilirubin Direct Bilirubin CK-MB (CK-2) C-Reactive Protein NT-Pro-B Natriuret Pep Total Protein Albumin Arterial Blood Glucose Urine WBC (Auto) Urine Creatinine 12/10/19 12/10/1920 04:14 04:14 12:00 WBC 13.3 H RBC 3.34 L Hgb 9.6 L Hct 30.4 L MCHC RDW 15.4 H MCV MCH Lymph % (Auto) Banks % (Auto) Banks # Eos # Lymph # (Auto) Banks # (Auto) Eos # (Auto) Seg Neutrophils % Seg Neuts % (Manual) 75.0 H Baso # (Auto) Lymphocytes % (Manual) 13.0 L Monocytes % (Manual) 8.0 H Eosinophils % (Manual) Basophils % (Manual) 2.0 H Seg Neutrophils # Seg Neutrophils # Man 10.0 H Lymphocytes # (Manual) Monocytes # (Manual) 1.1 H Eosinophils # (Manual) Nucleated RBC % Basophils # (Manual) 0.3 H PT INR APTT Heparin Anti-Xa Level ABG pH POC ABG pO2 ABG pO2 ABG HCO3 ABG O2 Saturation ABG Base Excess POC ABG pCO2 ABG Hemoglobin ABG Oxyhemoglobin ABG Chloride ABG Glucose Oxyhemoglobin Sodium 147 H Potassium Chloride 108.3 H Carbon Dioxide BUN 21 H Creatinine 0.6 L Glucose 104 H POC Glucose 133 H Lactic Acid Calcium Phosphorus Magnesium AST ALT Lactate Dehydrogenase Total Bilirubin Direct Bilirubin CK-MB (CK-2) C-Reactive Protein NT-Pro-B Natriuret Pep Total Protein Albumin Arterial Blood Glucose Urine WBC (Auto) Urine Creatinine 12/10/19 12/10/19 12/11/19 18:44 21:20 00:08 WBC 14.9 H RBC 3.36 L Hgb 9.6 L Hct 30.5 L MCHC RDW 15.4 H MCV MCH Lymph % (Auto) Banks % (Auto) Banks # Eos # Lymph # (Auto) Banks # (Auto) Eos # (Auto) Seg Neutrophils % Seg Neuts % (Manual) Baso # (Auto) Lymphocytes % (Manual) Monocytes % (Manual) Eosinophils % (Manual) Basophils % (Manual) Seg Neutrophils # Seg Neutrophils # Man Lymphocytes # (Manual) Monocytes # (Manual) Eosinophils # (Manual) Nucleated RBC % Basophils # (Manual) PT INR APTT Heparin Anti-Xa Level ABG pH POC ABG pO2 ABG pO2 ABG HCO3 ABG O2 Saturation ABG Base Excess POC ABG pCO2 ABG Hemoglobin ABG Oxyhemoglobin ABG Chloride ABG Glucose Oxyhemoglobin Sodium Potassium Chloride Carbon Dioxide BUN Creatinine Glucose POC Glucose 119 H 134 H Lactic Acid Calcium Phosphorus Magnesium AST ALT Lactate Dehydrogenase Total Bilirubin Direct Bilirubin CK-MB (CK-2) C-Reactive Protein NT-Pro-B Natriuret Pep Total Protein Albumin Arterial Blood Glucose Urine WBC (Auto) Urine Creatinine 12/11/19 12/11/19 12/11/19 03:54 07:28 08:36 WBC 11.9 H RBC 3.25 L Hgb 9.6 L Hct 29.2 L MCHC RDW 15.7 H MCV MCH Lymph % (Auto) Banks % (Auto) Banks # Eos # Lymph # (Auto) Banks # (Auto) Eos # (Auto) Seg Neutrophils % Seg Neuts % (Manual) Baso # (Auto) Lymphocytes % (Manual) Monocytes % (Manual) Eosinophils % (Manual) Basophils % (Manual) Seg Neutrophils # Seg Neutrophils # Man Lymphocytes # (Manual) Monocytes # (Manual) Eosinophils # (Manual) Nucleated RBC % Basophils # (Manual) PT INR APTT Heparin Anti-Xa Level 0.10 L 0.16 L ABG pH POC ABG pO2 ABG pO2 ABG HCO3 ABG O2 Saturation ABG Base Excess POC ABG pCO2 ABG Hemoglobin ABG Oxyhemoglobin ABG Chloride ABG Glucose Oxyhemoglobin Sodium Potassium Chloride Carbon Dioxide BUN Creatinine Glucose POC Glucose Lactic Acid Calcium Phosphorus Magnesium AST ALT Lactate Dehydrogenase Total Bilirubin Direct Bilirubin CK-MB (CK-2) C-Reactive Protein NT-Pro-B Natriuret Pep Total Protein Albumin Arterial Blood Glucose Urine WBC (Auto) Urine Creatinine 12/11/19 12/11/19 12/11/19 08:36 11:45 17:15 WBC RBC Hgb Hct MCHC RDW MCV MCH Lymph % (Auto) Banks % (Auto) Banks # Eos # Lymph # (Auto) Banks # (Auto) Eos # (Auto) Seg Neutrophils % Seg Neuts % (Manual) Baso # (Auto) Lymphocytes % (Manual) Monocytes % (Manual) Eosinophils % (Manual) Basophils % (Manual) Seg Neutrophils # Seg Neutrophils # Man Lymphocytes # (Manual) Monocytes # (Manual) Eosinophils # (Manual) Nucleated RBC % Basophils # (Manual) PT INR APTT Heparin Anti-Xa Level ABG pH POC ABG pO2 ABG pO2 ABG HCO3 ABG O2 Saturation ABG Base Excess POC ABG pCO2 ABG Hemoglobin ABG Oxyhemoglobin ABG Chloride ABG Glucose Oxyhemoglobin Sodium Potassium Chloride Carbon Dioxide BUN Creatinine 0.5 L Glucose 128 H POC Glucose 136 H 109 H Lactic Acid Calcium Phosphorus Magnesium AST ALT Lactate Dehydrogenase Total Bilirubin Direct Bilirubin CK-MB (CK-2) C-Reactive Protein NT-Pro-B Natriuret Pep Total Protein Albumin Arterial Blood Glucose Urine WBC (Auto) Urine Creatinine 12/12/19 12/12/19 12/12/19 00:03 05:53 05:53 WBC RBC Hgb 8.8 L Hct 27.6 L MCHC RDW MCV MCH Lymph % (Auto) Banks % (Auto) Banks # Eos # Lymph # (Auto) Banks # (Auto) Eos # (Auto) Seg Neutrophils % Seg Neuts % (Manual) Baso # (Auto) Lymphocytes % (Manual) Monocytes % (Manual) Eosinophils % (Manual) Basophils % (Manual) Seg Neutrophils # Seg Neutrophils # Man Lymphocytes # (Manual) Monocytes # (Manual) Eosinophils # (Manual) Nucleated RBC % Basophils # (Manual) PT INR APTT Heparin Anti-Xa Level 0.22 L ABG pH POC ABG pO2 ABG pO2 ABG HCO3 ABG O2 Saturation ABG Base Excess POC ABG pCO2 ABG Hemoglobin ABG Oxyhemoglobin ABG Chloride ABG Glucose Oxyhemoglobin Sodium Potassium Chloride Carbon Dioxide BUN Creatinine Glucose POC Glucose 116 H Lactic Acid Calcium Phosphorus Magnesium AST ALT Lactate Dehydrogenase Total Bilirubin Direct Bilirubin CK-MB (CK-2) C-Reactive Protein NT-Pro-B Natriuret Pep Total Protein Albumin Arterial Blood Glucose Urine WBC (Auto) Urine Creatinine 12/12/19 12/12/19 12/12/19 09:38 12:18 17:44 WBC RBC Hgb Hct MCHC RDW MCV MCH Lymph % (Auto) Banks % (Auto) Banks # Eos # Lymph # (Auto) Banks # (Auto) Eos # (Auto) Seg Neutrophils % Seg Neuts % (Manual) Baso # (Auto) Lymphocytes % (Manual) Monocytes % (Manual) Eosinophils % (Manual) Basophils % (Manual) Seg Neutrophils # Seg Neutrophils # Man Lymphocytes # (Manual) Monocytes # (Manual) Eosinophils # (Manual) Nucleated RBC % Basophils # (Manual) PT INR APTT Heparin Anti-Xa Level ABG pH POC ABG pO2 ABG pO2 ABG HCO3 ABG O2 Saturation ABG Base Excess POC ABG pCO2 ABG Hemoglobin ABG Oxyhemoglobin ABG Chloride ABG Glucose Oxyhemoglobin Sodium Potassium Chloride Carbon Dioxide BUN Creatinine Glucose POC Glucose 115 H 146 H 146 H Lactic Acid Calcium Phosphorus Magnesium AST ALT Lactate Dehydrogenase Total Bilirubin Direct Bilirubin CK-MB (CK-2) C-Reactive Protein NT-Pro-B Natriuret Pep Total Protein Albumin Arterial Blood Glucose Urine WBC (Auto) Urine Creatinine 12/12/19 12/13/19 12/13/19 23:33 05:32 05:32 WBC 13.1 H RBC 3.27 L Hgb 9.5 L Hct 29.3 L MCHC RDW 15.6 H MCV MCH Lymph % (Auto) Banks % (Auto) Banks # Eos # Lymph # (Auto) Banks # (Auto) Eos # (Auto) Seg Neutrophils % Seg Neuts % (Manual) 74.0 H Baso # (Auto) Lymphocytes % (Manual) 8.0 L Monocytes % (Manual) 9.0 H Eosinophils % (Manual) 5.0 H Basophils % (Manual) Seg Neutrophils # Seg Neutrophils # Man 9.7 H Lymphocytes # (Manual) 1.0 L Monocytes # (Manual) 1.2 H Eosinophils # (Manual) 0.7 H Nucleated RBC % Basophils # (Manual) PT INR APTT Heparin Anti-Xa Level 0.20 L ABG pH POC ABG pO2 ABG pO2 ABG HCO3 ABG O2 Saturation ABG Base Excess POC ABG pCO2 ABG Hemoglobin ABG Oxyhemoglobin ABG Chloride ABG Glucose Oxyhemoglobin Sodium Potassium Chloride Carbon Dioxide BUN Creatinine Glucose POC Glucose 126 H Lactic Acid Calcium Phosphorus Magnesium AST ALT Lactate Dehydrogenase Total Bilirubin Direct Bilirubin CK-MB (CK-2) C-Reactive Protein NT-Pro-B Natriuret Pep Total Protein Albumin Arterial Blood Glucose Urine WBC (Auto) Urine Creatinine 12/13/19 12/13/19 12/13/19 05:32 05:46 11:57 WBC RBC Hgb Hct MCHC RDW MCV MCH Lymph % (Auto) Banks % (Auto) Banks # Eos # Lymph # (Auto) Banks # (Auto) Eos # (Auto) Seg Neutrophils % Seg Neuts % (Manual) Baso # (Auto) Lymphocytes % (Manual) Monocytes % (Manual) Eosinophils % (Manual) Basophils % (Manual) Seg Neutrophils # Seg Neutrophils # Man Lymphocytes # (Manual) Monocytes # (Manual) Eosinophils # (Manual) Nucleated RBC % Basophils # (Manual) PT INR APTT Heparin Anti-Xa Level ABG pH POC ABG pO2 ABG pO2 ABG HCO3 ABG O2 Saturation ABG Base Excess POC ABG pCO2 ABG Hemoglobin ABG Oxyhemoglobin ABG Chloride ABG Glucose Oxyhemoglobin Sodium Potassium Chloride Carbon Dioxide 31 H BUN Creatinine 0.6 L Glucose 114 H POC Glucose 118 H 133 H Lactic Acid Calcium Phosphorus Magnesium AST ALT Lactate Dehydrogenase Total Bilirubin Direct Bilirubin CK-MB (CK-2) C-Reactive Protein NT-Pro-B Natriuret Pep Total Protein Albumin Arterial Blood Glucose Urine WBC (Auto) Urine Creatinine 12/13/19 12/13/19 12/14/19 17:44 23:46 05:32 WBC RBC Hgb Hct MCHC RDW MCV MCH Lymph % (Auto) Banks % (Auto) Banks # Eos # Lymph # (Auto) Banks # (Auto) Eos # (Auto) Seg Neutrophils % Seg Neuts % (Manual) Baso # (Auto) Lymphocytes % (Manual) Monocytes % (Manual) Eosinophils % (Manual) Basophils % (Manual) Seg Neutrophils # Seg Neutrophils # Man Lymphocytes # (Manual) Monocytes # (Manual) Eosinophils # (Manual) Nucleated RBC % Basophils # (Manual) PT INR APTT Heparin Anti-Xa Level ABG pH POC ABG pO2 ABG pO2 ABG HCO3 ABG O2 Saturation ABG Base Excess POC ABG pCO2 ABG Hemoglobin ABG Oxyhemoglobin ABG Chloride ABG Glucose Oxyhemoglobin Sodium Potassium Chloride Carbon Dioxide BUN Creatinine Glucose POC Glucose 161 H 126 H 139 H Lactic Acid Calcium Phosphorus Magnesium AST ALT Lactate Dehydrogenase Total Bilirubin Direct Bilirubin CK-MB (CK-2) C-Reactive Protein NT-Pro-B Natriuret Pep Total Protein Albumin Arterial Blood Glucose Urine WBC (Auto) Urine Creatinine 12/14/19 12/14/19 12/14/19 06:03 06:03 09:37 WBC RBC Hgb 9.6 L Hct 30.4 L MCHC RDW MCV MCH Lymph % (Auto) Banks % (Auto) Banks # Eos # Lymph # (Auto) Banks # (Auto) Eos # (Auto) Seg Neutrophils % Seg Neuts % (Manual) Baso # (Auto) Lymphocytes % (Manual) Monocytes % (Manual) Eosinophils % (Manual) Basophils % (Manual) Seg Neutrophils # Seg Neutrophils # Man Lymphocytes # (Manual) Monocytes # (Manual) Eosinophils # (Manual) Nucleated RBC % Basophils # (Manual) PT INR APTT Heparin Anti-Xa Level 0.24 L ABG pH POC ABG pO2 ABG pO2 ABG HCO3 ABG O2 Saturation ABG Base Excess POC ABG pCO2 ABG Hemoglobin ABG Oxyhemoglobin ABG Chloride ABG Glucose Oxyhemoglobin Sodium Potassium Chloride Carbon Dioxide BUN Creatinine 0.6 L Glucose 162 H POC Glucose Lactic Acid Calcium Phosphorus Magnesium AST 71 H ALT 118 H Lactate Dehydrogenase Total Bilirubin Direct Bilirubin CK-MB (CK-2) C-Reactive Protein NT-Pro-B Natriuret Pep Total Protein 6.2 L Albumin 2.3 L Arterial Blood Glucose Urine WBC (Auto) Urine Creatinine 12/14/19 12/14/19 12/15/19 12:06 18:18 00:19 WBC RBC Hgb Hct MCHC RDW MCV MCH Lymph % (Auto) Banks % (Auto) Banks # Eos # Lymph # (Auto) Banks # (Auto) Eos # (Auto) Seg Neutrophils % Seg Neuts % (Manual) Baso # (Auto) Lymphocytes % (Manual) Monocytes % (Manual) Eosinophils % (Manual) Basophils % (Manual) Seg Neutrophils # Seg Neutrophils # Man Lymphocytes # (Manual) Monocytes # (Manual) Eosinophils # (Manual) Nucleated RBC % Basophils # (Manual) PT INR APTT Heparin Anti-Xa Level ABG pH POC ABG pO2 ABG pO2 ABG HCO3 ABG O2 Saturation ABG Base Excess POC ABG pCO2 ABG Hemoglobin ABG Oxyhemoglobin ABG Chloride ABG Glucose Oxyhemoglobin Sodium Potassium Chloride Carbon Dioxide BUN Creatinine Glucose POC Glucose 147 H 166 H 123 H Lactic Acid Calcium Phosphorus Magnesium AST ALT Lactate Dehydrogenase Total Bilirubin Direct Bilirubin CK-MB (CK-2) C-Reactive Protein NT-Pro-B Natriuret Pep Total Protein Albumin Arterial Blood Glucose Urine WBC (Auto) Urine Creatinine 12/15/19 12/15/19 12/15/19 05:28 05:29 05:29 WBC 14.9 H RBC 3.19 L Hgb 9.1 L Hct 28.7 L MCHC RDW 16.0 H MCV MCH Lymph % (Auto) Banks % (Auto) Banks # Eos # Lymph # (Auto) Banks # (Auto) Eos # (Auto) Seg Neutrophils % Seg Neuts % (Manual) Baso # (Auto) Lymphocytes % (Manual) Monocytes % (Manual) Eosinophils % (Manual) Basophils % (Manual) Seg Neutrophils # Seg Neutrophils # Man Lymphocytes # (Manual) Monocytes # (Manual) Eosinophils # (Manual) Nucleated RBC % Basophils # (Manual) PT INR APTT Heparin Anti-Xa Level 0.19 L ABG pH POC ABG pO2 ABG pO2 ABG HCO3 ABG O2 Saturation ABG Base Excess POC ABG pCO2 ABG Hemoglobin ABG Oxyhemoglobin ABG Chloride ABG Glucose Oxyhemoglobin Sodium Potassium Chloride Carbon Dioxide BUN Creatinine 0.6 L Glucose 110 H POC Glucose Lactic Acid Calcium Phosphorus Magnesium AST ALT Lactate Dehydrogenase Total Bilirubin Direct Bilirubin CK-MB (CK-2) C-Reactive Protein NT-Pro-B Natriuret Pep Total Protein Albumin Arterial Blood Glucose Urine WBC (Auto) Urine Creatinine 12/15/19 12/15/19 12/15/19 05:53 11:50 17:26 WBC RBC Hgb Hct MCHC RDW MCV MCH Lymph % (Auto) Banks % (Auto) Banks # Eos # Lymph # (Auto) Banks # (Auto) Eos # (Auto) Seg Neutrophils % Seg Neuts % (Manual) Baso # (Auto) Lymphocytes % (Manual) Monocytes % (Manual) Eosinophils % (Manual) Basophils % (Manual) Seg Neutrophils # Seg Neutrophils # Man Lymphocytes # (Manual) Monocytes # (Manual) Eosinophils # (Manual) Nucleated RBC % Basophils # (Manual) PT INR APTT Heparin Anti-Xa Level ABG pH POC ABG pO2 ABG pO2 ABG HCO3 ABG O2 Saturation ABG Base Excess POC ABG pCO2 ABG Hemoglobin ABG Oxyhemoglobin ABG Chloride ABG Glucose Oxyhemoglobin Sodium Potassium Chloride Carbon Dioxide BUN Creatinine Glucose POC Glucose 119 H 132 H 128 H Lactic Acid Calcium Phosphorus Magnesium AST ALT Lactate Dehydrogenase Total Bilirubin Direct Bilirubin CK-MB (CK-2) C-Reactive Protein NT-Pro-B Natriuret Pep Total Protein Albumin Arterial Blood Glucose Urine WBC (Auto) Urine Creatinine 12/15/19 12/16/19 12/16/19 23:11 05:30 05:46 WBC RBC Hgb 8.8 L Hct 27.9 L MCHC RDW MCV MCH Lymph % (Auto) Banks % (Auto) Banks # Eos # Lymph # (Auto) Banks # (Auto) Eos # (Auto) Seg Neutrophils % Seg Neuts % (Manual) Baso # (Auto) Lymphocytes % (Manual) Monocytes % (Manual) Eosinophils % (Manual) Basophils % (Manual) Seg Neutrophils # Seg Neutrophils # Man Lymphocytes # (Manual) Monocytes # (Manual) Eosinophils # (Manual) Nucleated RBC % Basophils # (Manual) PT INR APTT Heparin Anti-Xa Level ABG pH POC ABG pO2 ABG pO2 ABG HCO3 ABG O2 Saturation ABG Base Excess POC ABG pCO2 ABG Hemoglobin ABG Oxyhemoglobin ABG Chloride ABG Glucose Oxyhemoglobin Sodium Potassium Chloride Carbon Dioxide BUN Creatinine Glucose POC Glucose 150 H 134 H Lactic Acid Calcium Phosphorus Magnesium AST ALT Lactate Dehydrogenase Total Bilirubin Direct Bilirubin CK-MB (CK-2) C-Reactive Protein NT-Pro-B Natriuret Pep Total Protein Albumin Arterial Blood Glucose Urine WBC (Auto) Urine Creatinine 12/16/19 12/16/19 12/16/19 05:46 05:46 11:44 WBC RBC Hgb Hct MCHC RDW MCV MCH Lymph % (Auto) Banks % (Auto) Banks # Eos # Lymph # (Auto) Banks # (Auto) Eos # (Auto) Seg Neutrophils % Seg Neuts % (Manual) Baso # (Auto) Lymphocytes % (Manual) Monocytes % (Manual) Eosinophils % (Manual) Basophils % (Manual) Seg Neutrophils # Seg Neutrophils # Man Lymphocytes # (Manual) Monocytes # (Manual) Eosinophils # (Manual) Nucleated RBC % Basophils # (Manual) PT INR APTT Heparin Anti-Xa Level 0.20 L ABG pH POC ABG pO2 ABG pO2 ABG HCO3 ABG O2 Saturation ABG Base Excess POC ABG pCO2 ABG Hemoglobin ABG Oxyhemoglobin ABG Chloride ABG Glucose Oxyhemoglobin Sodium Potassium Chloride Carbon Dioxide 31 H BUN Creatinine 0.5 L Glucose 147 H POC Glucose 164 H Lactic Acid Calcium Phosphorus Magnesium AST ALT Lactate Dehydrogenase Total Bilirubin Direct Bilirubin CK-MB (CK-2) C-Reactive Protein NT-Pro-B Natriuret Pep Total Protein Albumin Arterial Blood Glucose Urine WBC (Auto) Urine Creatinine 12/16/19 12/16/19 12/17/19 17:17 23:49 05:30 WBC 13.9 H RBC 3.27 L Hgb 9.4 L Hct 29.2 L MCHC RDW 16.0 H MCV MCH Lymph % (Auto) Banks % (Auto) 8.8 H Banks # Eos # Lymph # (Auto) Banks # (Auto) 1.2 H Eos # (Auto) 0.5 H Seg Neutrophils % 70.5 H Seg Neuts % (Manual) Baso # (Auto) 0.2 H Lymphocytes % (Manual) Monocytes % (Manual) Eosinophils % (Manual) Basophils % (Manual) Seg Neutrophils # 9.8 H Seg Neutrophils # Man Lymphocytes # (Manual) Monocytes # (Manual) Eosinophils # (Manual) Nucleated RBC % Basophils # (Manual) PT INR APTT Heparin Anti-Xa Level ABG pH POC ABG pO2 ABG pO2 ABG HCO3 ABG O2 Saturation ABG Base Excess POC ABG pCO2 ABG Hemoglobin ABG Oxyhemoglobin ABG Chloride ABG Glucose Oxyhemoglobin Sodium Potassium Chloride Carbon Dioxide BUN Creatinine Glucose POC Glucose 162 H 144 H Lactic Acid Calcium Phosphorus Magnesium AST ALT Lactate Dehydrogenase Total Bilirubin Direct Bilirubin CK-MB (CK-2) C-Reactive Protein NT-Pro-B Natriuret Pep Total Protein Albumin Arterial Blood Glucose Urine WBC (Auto) Urine Creatinine 12/17/19 12/17/19 12/17/19 05:30 06:06 11:50 WBC RBC Hgb Hct MCHC RDW MCV MCH Lymph % (Auto) Banks % (Auto) Banks # Eos # Lymph # (Auto) Banks # (Auto) Eos # (Auto) Seg Neutrophils % Seg Neuts % (Manual) Baso # (Auto) Lymphocytes % (Manual) Monocytes % (Manual) Eosinophils % (Manual) Basophils % (Manual) Seg Neutrophils # Seg Neutrophils # Man Lymphocytes # (Manual) Monocytes # (Manual) Eosinophils # (Manual) Nucleated RBC % Basophils # (Manual) PT INR APTT Heparin Anti-Xa Level ABG pH POC ABG pO2 ABG pO2 ABG HCO3 ABG O2 Saturation ABG Base Excess POC ABG pCO2 ABG Hemoglobin ABG Oxyhemoglobin ABG Chloride ABG Glucose Oxyhemoglobin Sodium Potassium Chloride 97.4 L Carbon Dioxide 32 H BUN Creatinine 0.5 L Glucose 135 H POC Glucose 151 H 140 H Lactic Acid Calcium Phosphorus Magnesium AST ALT Lactate Dehydrogenase Total Bilirubin Direct Bilirubin CK-MB (CK-2) C-Reactive Protein NT-Pro-B Natriuret Pep Total Protein Albumin Arterial Blood Glucose Urine WBC (Auto) Urine Creatinine 12/17/19 12/17/19 12/18/19 17:50 23:46 05:17 WBC RBC Hgb 8.8 L Hct 28.0 L MCHC RDW MCV MCH Lymph % (Auto) Banks % (Auto) Banks # Eos # Lymph # (Auto) Banks # (Auto) Eos # (Auto) Seg Neutrophils % Seg Neuts % (Manual) Baso # (Auto) Lymphocytes % (Manual) Monocytes % (Manual) Eosinophils % (Manual) Basophils % (Manual) Seg Neutrophils # Seg Neutrophils # Man Lymphocytes # (Manual) Monocytes # (Manual) Eosinophils # (Manual) Nucleated RBC % Basophils # (Manual) PT INR APTT Heparin Anti-Xa Level ABG pH POC ABG pO2 ABG pO2 ABG HCO3 ABG O2 Saturation ABG Base Excess POC ABG pCO2 ABG Hemoglobin ABG Oxyhemoglobin ABG Chloride ABG Glucose Oxyhemoglobin Sodium Potassium Chloride Carbon Dioxide BUN Creatinine Glucose POC Glucose 158 H 150 H Lactic Acid Calcium Phosphorus Magnesium AST ALT Lactate Dehydrogenase Total Bilirubin Direct Bilirubin CK-MB (CK-2) C-Reactive Protein NT-Pro-B Natriuret Pep Total Protein Albumin Arterial Blood Glucose Urine WBC (Auto) Urine Creatinine 12/18/19 12/18/19 12/18/19 05:17 05:49 11:12 WBC RBC Hgb Hct MCHC RDW MCV MCH Lymph % (Auto) Banks % (Auto) Banks # Eos # Lymph # (Auto) Banks # (Auto) Eos # (Auto) Seg Neutrophils % Seg Neuts % (Manual) Baso # (Auto) Lymphocytes % (Manual) Monocytes % (Manual) Eosinophils % (Manual) Basophils % (Manual) Seg Neutrophils # Seg Neutrophils # Man Lymphocytes # (Manual) Monocytes # (Manual) Eosinophils # (Manual) Nucleated RBC % Basophils # (Manual) PT INR APTT Heparin Anti-Xa Level 0.16 L ABG pH POC ABG pO2 ABG pO2 ABG HCO3 ABG O2 Saturation ABG Base Excess POC ABG pCO2 ABG Hemoglobin ABG Oxyhemoglobin ABG Chloride ABG Glucose Oxyhemoglobin Sodium Potassium Chloride Carbon Dioxide BUN Creatinine Glucose POC Glucose 127 H 191 H Lactic Acid Calcium Phosphorus Magnesium AST ALT Lactate Dehydrogenase Total Bilirubin Direct Bilirubin CK-MB (CK-2) C-Reactive Protein NT-Pro-B Natriuret Pep Total Protein Albumin Arterial Blood Glucose Urine WBC (Auto) Urine Creatinine 12/18/19 12/18/19 12/19/19 17:03 20:16 00:08 WBC RBC Hgb Hct MCHC RDW MCV MCH Lymph % (Auto) Banks % (Auto) Banks # Eos # Lymph # (Auto) Banks # (Auto) Eos # (Auto) Seg Neutrophils % Seg Neuts % (Manual) Baso # (Auto) Lymphocytes % (Manual) Monocytes % (Manual) Eosinophils % (Manual) Basophils % (Manual) Seg Neutrophils # Seg Neutrophils # Man Lymphocytes # (Manual) Monocytes # (Manual) Eosinophils # (Manual) Nucleated RBC % Basophils # (Manual) PT INR APTT Heparin Anti-Xa Level ABG pH POC ABG pO2 ABG pO2 ABG HCO3 ABG O2 Saturation ABG Base Excess POC ABG pCO2 ABG Hemoglobin ABG Oxyhemoglobin ABG Chloride ABG Glucose Oxyhemoglobin Sodium Potassium Chloride Carbon Dioxide BUN Creatinine Glucose POC Glucose 133 H 128 H 129 H Lactic Acid Calcium Phosphorus Magnesium AST ALT Lactate Dehydrogenase Total Bilirubin Direct Bilirubin CK-MB (CK-2) C-Reactive Protein NT-Pro-B Natriuret Pep Total Protein Albumin Arterial Blood Glucose Urine WBC (Auto) Urine Creatinine 12/19/19 12/19/19 12/19/19 04:45 04:45 05:35 WBC RBC Hgb Hct MCHC RDW MCV MCH Lymph % (Auto) Banks % (Auto) Banks # Eos # Lymph # (Auto) Banks # (Auto) Eos # (Auto) Seg Neutrophils % Seg Neuts % (Manual) Baso # (Auto) Lymphocytes % (Manual) Monocytes % (Manual) Eosinophils % (Manual) Basophils % (Manual) Seg Neutrophils # Seg Neutrophils # Man Lymphocytes # (Manual) Monocytes # (Manual) Eosinophils # (Manual) Nucleated RBC % Basophils # (Manual) PT INR APTT Heparin Anti-Xa Level 0.17 L ABG pH POC ABG pO2 ABG pO2 ABG HCO3 ABG O2 Saturation ABG Base Excess POC ABG pCO2 ABG Hemoglobin ABG Oxyhemoglobin ABG Chloride ABG Glucose Oxyhemoglobin Sodium Potassium Chloride Carbon Dioxide BUN Creatinine Glucose POC Glucose 120 H Lactic Acid Calcium Phosphorus Magnesium AST ALT Lactate Dehydrogenase 228 H Total Bilirubin Direct Bilirubin CK-MB (CK-2) C-Reactive Protein NT-Pro-B Natriuret Pep Total Protein Albumin Arterial Blood Glucose Urine WBC (Auto) Urine Creatinine 12/19/19 12/19/19 12/19/19 09:20 11:32 11:32 WBC 14.6 H RBC 3.08 L Hgb 9.0 L Hct 26.8 L MCHC RDW 15.9 H MCV MCH Lymph % (Auto) Banks % (Auto) Banks # Eos # Lymph # (Auto) Banks # (Auto) Eos # (Auto) Seg Neutrophils % Seg Neuts % (Manual) 82.0 H Baso # (Auto) Lymphocytes % (Manual) 10.0 L Monocytes % (Manual) Eosinophils % (Manual) Basophils % (Manual) Seg Neutrophils # Seg Neutrophils # Man 12.0 H Lymphocytes # (Manual) Monocytes # (Manual) 0.9 H Eosinophils # (Manual) Nucleated RBC % 1.0 H Basophils # (Manual) PT INR APTT Heparin Anti-Xa Level ABG pH 7.451 H POC ABG pO2 ABG pO2 62.6 L ABG HCO3 33.2 H ABG O2 Saturation 93.8 L ABG Base Excess 8.3 H POC ABG pCO2 ABG Hemoglobin 8.3 L ABG Oxyhemoglobin ABG Chloride ABG Glucose Oxyhemoglobin 91.9 L Sodium Potassium Chloride 95.0 L Carbon Dioxide 33 H BUN 22 H Creatinine 0.6 L Glucose 150 H POC Glucose Lactic Acid Calcium Phosphorus Magnesium AST ALT Lactate Dehydrogenase Total Bilirubin Direct Bilirubin CK-MB (CK-2) C-Reactive Protein NT-Pro-B Natriuret Pep Total Protein 6.2 L Albumin 2.4 L Arterial Blood Glucose Urine WBC (Auto) Urine Creatinine 12/19/19 12/19/19 12/20/19 11:56 18:17 00:09 WBC RBC Hgb Hct MCHC RDW MCV MCH Lymph % (Auto) Banks % (Auto) Banks # Eos # Lymph # (Auto) Banks # (Auto) Eos # (Auto) Seg Neutrophils % Seg Neuts % (Manual) Baso # (Auto) Lymphocytes % (Manual) Monocytes % (Manual) Eosinophils % (Manual) Basophils % (Manual) Seg Neutrophils # Seg Neutrophils # Man Lymphocytes # (Manual) Monocytes # (Manual) Eosinophils # (Manual) Nucleated RBC % Basophils # (Manual) PT INR APTT Heparin Anti-Xa Level ABG pH POC ABG pO2 ABG pO2 ABG HCO3 ABG O2 Saturation ABG Base Excess POC ABG pCO2 ABG Hemoglobin ABG Oxyhemoglobin ABG Chloride ABG Glucose Oxyhemoglobin Sodium Potassium Chloride Carbon Dioxide BUN Creatinine Glucose POC Glucose 156 H 156 H 155 H Lactic Acid Calcium Phosphorus Magnesium AST ALT Lactate Dehydrogenase Total Bilirubin Direct Bilirubin CK-MB (CK-2) C-Reactive Protein NT-Pro-B Natriuret Pep Total Protein Albumin Arterial Blood Glucose Urine WBC (Auto) Urine Creatinine 12/20/19 12/20/19 12/20/19 05:26 06:02 18:17 WBC RBC Hgb Hct MCHC RDW MCV MCH Lymph % (Auto) Banks % (Auto) Banks # Eos # Lymph # (Auto) Banks # (Auto) Eos # (Auto) Seg Neutrophils % Seg Neuts % (Manual) Baso # (Auto) Lymphocytes % (Manual) Monocytes % (Manual) Eosinophils % (Manual) Basophils % (Manual) Seg Neutrophils # Seg Neutrophils # Man Lymphocytes # (Manual) Monocytes # (Manual) Eosinophils # (Manual) Nucleated RBC % Basophils # (Manual) PT INR APTT Heparin Anti-Xa Level 0.19 L ABG pH POC ABG pO2 ABG pO2 ABG HCO3 ABG O2 Saturation ABG Base Excess POC ABG pCO2 ABG Hemoglobin ABG Oxyhemoglobin ABG Chloride ABG Glucose Oxyhemoglobin Sodium Potassium Chloride Carbon Dioxide BUN Creatinine Glucose POC Glucose 137 H 128 H Lactic Acid Calcium Phosphorus Magnesium AST ALT Lactate Dehydrogenase Total Bilirubin Direct Bilirubin CK-MB (CK-2) C-Reactive Protein NT-Pro-B Natriuret Pep Total Protein Albumin Arterial Blood Glucose Urine WBC (Auto) Urine Creatinine 12/20/19 12/21/19 12/21/19 23:34 05:31 05:31 WBC 12.7 H RBC 3.09 L Hgb 8.9 L Hct 27.4 L MCHC RDW 15.8 H MCV MCH Lymph % (Auto) 12.1 L Banks % (Auto) 7.8 H Banks # Eos # Lymph # (Auto) Banks # (Auto) 1.0 H Eos # (Auto) Seg Neutrophils % 77.1 H Seg Neuts % (Manual) Baso # (Auto) Lymphocytes % (Manual) Monocytes % (Manual) Eosinophils % (Manual) Basophils % (Manual) Seg Neutrophils # 9.8 H Seg Neutrophils # Man Lymphocytes # (Manual) Monocytes # (Manual) Eosinophils # (Manual) Nucleated RBC % Basophils # (Manual) PT INR APTT Heparin Anti-Xa Level ABG pH POC ABG pO2 ABG pO2 ABG HCO3 ABG O2 Saturation ABG Base Excess POC ABG pCO2 ABG Hemoglobin ABG Oxyhemoglobin ABG Chloride ABG Glucose Oxyhemoglobin Sodium Potassium Chloride 96.9 L Carbon Dioxide 37 H BUN 27 H Creatinine 0.7 L Glucose 140 H POC Glucose 145 H Lactic Acid Calcium Phosphorus Magnesium AST ALT Lactate Dehydrogenase Total Bilirubin Direct Bilirubin CK-MB (CK-2) C-Reactive Protein NT-Pro-B Natriuret Pep Total Protein Albumin Arterial Blood Glucose Urine WBC (Auto) Urine Creatinine 12/21/19 12/21/19 12/21/19 05:38 10:13 11:51 WBC RBC Hgb Hct MCHC RDW MCV MCH Lymph % (Auto) Banks % (Auto) Banks # Eos # Lymph # (Auto) Banks # (Auto) Eos # (Auto) Seg Neutrophils % Seg Neuts % (Manual) Baso # (Auto) Lymphocytes % (Manual) Monocytes % (Manual) Eosinophils % (Manual) Basophils % (Manual) Seg Neutrophils # Seg Neutrophils # Man Lymphocytes # (Manual) Monocytes # (Manual) Eosinophils # (Manual) Nucleated RBC % Basophils # (Manual) PT INR APTT 23.9 L Heparin Anti-Xa Level < 0.10 L ABG pH POC ABG pO2 ABG pO2 ABG HCO3 ABG O2 Saturation ABG Base Excess POC ABG pCO2 ABG Hemoglobin ABG Oxyhemoglobin ABG Chloride ABG Glucose Oxyhemoglobin Sodium Potassium Chloride Carbon Dioxide BUN Creatinine Glucose POC Glucose 151 H 145 H Lactic Acid Calcium Phosphorus Magnesium AST ALT Lactate Dehydrogenase Total Bilirubin Direct Bilirubin CK-MB (CK-2) C-Reactive Protein NT-Pro-B Natriuret Pep Total Protein Albumin Arterial Blood Glucose Urine WBC (Auto) Urine Creatinine 12/21/19 12/22/19 12/22/19 17:16 00:01 01:33 WBC RBC Hgb Hct MCHC RDW MCV MCH Lymph % (Auto) Banks % (Auto) Banks # Eos # Lymph # (Auto) Banks # (Auto) Eos # (Auto) Seg Neutrophils % Seg Neuts % (Manual) Baso # (Auto) Lymphocytes % (Manual) Monocytes % (Manual) Eosinophils % (Manual) Basophils % (Manual) Seg Neutrophils # Seg Neutrophils # Man Lymphocytes # (Manual) Monocytes # (Manual) Eosinophils # (Manual) Nucleated RBC % Basophils # (Manual) PT INR APTT Heparin Anti-Xa Level 0.10 L ABG pH POC ABG pO2 ABG pO2 ABG HCO3 ABG O2 Saturation ABG Base Excess POC ABG pCO2 ABG Hemoglobin ABG Oxyhemoglobin ABG Chloride ABG Glucose Oxyhemoglobin Sodium Potassium Chloride Carbon Dioxide BUN Creatinine Glucose POC Glucose 167 H 179 H Lactic Acid Calcium Phosphorus Magnesium AST ALT Lactate Dehydrogenase Total Bilirubin Direct Bilirubin CK-MB (CK-2) C-Reactive Protein NT-Pro-B Natriuret Pep Total Protein Albumin Arterial Blood Glucose Urine WBC (Auto) Urine Creatinine 12/22/19 12/22/19 12/22/19 03:22 05:10 05:10 WBC 13.8 H RBC 3.20 L Hgb 8.9 L Hct 28.1 L MCHC RDW 15.9 H MCV MCH Lymph % (Auto) Banks % (Auto) Banks # Eos # Lymph # (Auto) Banks # (Auto) Eos # (Auto) Seg Neutrophils % Seg Neuts % (Manual) Baso # (Auto) Lymphocytes % (Manual) Monocytes % (Manual) Eosinophils % (Manual) Basophils % (Manual) Seg Neutrophils # Seg Neutrophils # Man Lymphocytes # (Manual) Monocytes # (Manual) Eosinophils # (Manual) Nucleated RBC % Basophils # (Manual) PT INR APTT Heparin Anti-Xa Level ABG pH POC ABG pO2 52.3 L ABG pO2 ABG HCO3 ABG O2 Saturation ABG Base Excess POC ABG pCO2 52.9 H ABG Hemoglobin 10.7 L ABG Oxyhemoglobin 84 L ABG Chloride ABG Glucose Oxyhemoglobin Sodium Potassium Chloride 96.6 L Carbon Dioxide BUN 25 H Creatinine 0.7 L Glucose 129 H POC Glucose Lactic Acid Calcium Phosphorus Magnesium AST ALT Lactate Dehydrogenase Total Bilirubin Direct Bilirubin CK-MB (CK-2) C-Reactive Protein NT-Pro-B Natriuret Pep Total Protein Albumin Arterial Blood Glucose Urine WBC (Auto) Urine Creatinine 12/22/19 12/22/19 12/22/19 05:18 12:32 12:43 WBC RBC Hgb Hct MCHC RDW MCV MCH Lymph % (Auto) Banks % (Auto) Banks # Eos # Lymph # (Auto) Banks # (Auto) Eos # (Auto) Seg Neutrophils % Seg Neuts % (Manual) Baso # (Auto) Lymphocytes % (Manual) Monocytes % (Manual) Eosinophils % (Manual) Basophils % (Manual) Seg Neutrophils # Seg Neutrophils # Man Lymphocytes # (Manual) Monocytes # (Manual) Eosinophils # (Manual) Nucleated RBC % Basophils # (Manual) PT INR APTT Heparin Anti-Xa Level 0.18 L ABG pH POC ABG pO2 ABG pO2 ABG HCO3 ABG O2 Saturation ABG Base Excess POC ABG pCO2 ABG Hemoglobin ABG Oxyhemoglobin ABG Chloride ABG Glucose Oxyhemoglobin Sodium Potassium Chloride Carbon Dioxide BUN Creatinine Glucose POC Glucose 131 H 208 H Lactic Acid Calcium Phosphorus Magnesium AST ALT Lactate Dehydrogenase Total Bilirubin Direct Bilirubin CK-MB (CK-2) C-Reactive Protein NT-Pro-B Natriuret Pep Total Protein Albumin Arterial Blood Glucose Urine WBC (Auto) Urine Creatinine 12/22/19 12/22/19 12/23/19 17:44 23:20 03:51 WBC 15.2 H RBC 3.43 L Hgb 9.6 L Hct 30.3 L MCHC RDW 15.9 H MCV MCH Lymph % (Auto) Banks % (Auto) Banks # Eos # Lymph # (Auto) Banks # (Auto) Eos # (Auto) Seg Neutrophils % Seg Neuts % (Manual) Baso # (Auto) Lymphocytes % (Manual) Monocytes % (Manual) Eosinophils % (Manual) Basophils % (Manual) Seg Neutrophils # Seg Neutrophils # Man Lymphocytes # (Manual) Monocytes # (Manual) Eosinophils # (Manual) Nucleated RBC % Basophils # (Manual) PT INR APTT Heparin Anti-Xa Level ABG pH POC ABG pO2 ABG pO2 ABG HCO3 ABG O2 Saturation ABG Base Excess POC ABG pCO2 ABG Hemoglobin ABG Oxyhemoglobin ABG Chloride ABG Glucose Oxyhemoglobin Sodium Potassium Chloride Carbon Dioxide BUN Creatinine Glucose POC Glucose 209 H 119 H Lactic Acid Calcium Phosphorus Magnesium AST ALT Lactate Dehydrogenase Total Bilirubin Direct Bilirubin CK-MB (CK-2) C-Reactive Protein NT-Pro-B Natriuret Pep Total Protein Albumin Arterial Blood Glucose Urine WBC (Auto) Urine Creatinine 12/23/19 12/23/19 12/23/19 03:51 05:31 12:09 WBC RBC Hgb Hct MCHC RDW MCV MCH Lymph % (Auto) Banks % (Auto) Banks # Eos # Lymph # (Auto) Banks # (Auto) Eos # (Auto) Seg Neutrophils % Seg Neuts % (Manual) Baso # (Auto) Lymphocytes % (Manual) Monocytes % (Manual) Eosinophils % (Manual) Basophils % (Manual) Seg Neutrophils # Seg Neutrophils # Man Lymphocytes # (Manual) Monocytes # (Manual) Eosinophils # (Manual) Nucleated RBC % Basophils # (Manual) PT INR APTT Heparin Anti-Xa Level ABG pH POC ABG pO2 ABG pO2 ABG HCO3 ABG O2 Saturation ABG Base Excess POC ABG pCO2 ABG Hemoglobin ABG Oxyhemoglobin ABG Chloride ABG Glucose Oxyhemoglobin Sodium Potassium Chloride 97.2 L Carbon Dioxide 31 H BUN 23 H Creatinine 0.6 L Glucose 153 H POC Glucose 149 H 144 H Lactic Acid Calcium Phosphorus Magnesium AST ALT Lactate Dehydrogenase Total Bilirubin Direct Bilirubin CK-MB (CK-2) C-Reactive Protein NT-Pro-B Natriuret Pep Total Protein Albumin Arterial Blood Glucose Urine WBC (Auto) Urine Creatinine 12/23/19 12/23/19 12/23/19 15:30 17:49 23:31 WBC RBC Hgb Hct MCHC RDW MCV MCH Lymph % (Auto) Banks % (Auto) Banks # Eos # Lymph # (Auto) Banks # (Auto) Eos # (Auto) Seg Neutrophils % Seg Neuts % (Manual) Baso # (Auto) Lymphocytes % (Manual) Monocytes % (Manual) Eosinophils % (Manual) Basophils % (Manual) Seg Neutrophils # Seg Neutrophils # Man Lymphocytes # (Manual) Monocytes # (Manual) Eosinophils # (Manual) Nucleated RBC % Basophils # (Manual) PT INR APTT Heparin Anti-Xa Level 0.21 L ABG pH POC ABG pO2 ABG pO2 ABG HCO3 ABG O2 Saturation ABG Base Excess POC ABG pCO2 ABG Hemoglobin ABG Oxyhemoglobin ABG Chloride ABG Glucose Oxyhemoglobin Sodium Potassium Chloride Carbon Dioxide BUN Creatinine Glucose POC Glucose 192 H 151 H Lactic Acid Calcium Phosphorus Magnesium AST ALT Lactate Dehydrogenase Total Bilirubin Direct Bilirubin CK-MB (CK-2) C-Reactive Protein NT-Pro-B Natriuret Pep Total Protein Albumin Arterial Blood Glucose Urine WBC (Auto) Urine Creatinine 12/24/19 12/24/19 12/24/19 05:34 12:13 16:50 WBC RBC Hgb Hct MCHC RDW MCV MCH Lymph % (Auto) Banks % (Auto) Banks # Eos # Lymph # (Auto) Banks # (Auto) Eos # (Auto) Seg Neutrophils % Seg Neuts % (Manual) Baso # (Auto) Lymphocytes % (Manual) Monocytes % (Manual) Eosinophils % (Manual) Basophils % (Manual) Seg Neutrophils # Seg Neutrophils # Man Lymphocytes # (Manual) Monocytes # (Manual) Eosinophils # (Manual) Nucleated RBC % Basophils # (Manual) PT INR APTT Heparin Anti-Xa Level 0.16 L ABG pH POC ABG pO2 ABG pO2 ABG HCO3 ABG O2 Saturation ABG Base Excess POC ABG pCO2 ABG Hemoglobin ABG Oxyhemoglobin ABG Chloride ABG Glucose Oxyhemoglobin Sodium Potassium Chloride Carbon Dioxide BUN Creatinine Glucose POC Glucose 145 H 124 H Lactic Acid Calcium Phosphorus Magnesium AST ALT Lactate Dehydrogenase Total Bilirubin Direct Bilirubin CK-MB (CK-2) C-Reactive Protein NT-Pro-B Natriuret Pep Total Protein Albumin Arterial Blood Glucose Urine WBC (Auto) Urine Creatinine 12/24/19 12/25/19 12/25/19 17:53 00:14 04:18 WBC 12.9 H RBC 3.30 L Hgb 9.1 L Hct 28.8 L MCHC RDW 16.4 H MCV MCH Lymph % (Auto) Banks % (Auto) 7.8 H Banks # Eos # Lymph # (Auto) Banks # (Auto) 1.0 H Eos # (Auto) Seg Neutrophils % 75.5 H Seg Neuts % (Manual) Baso # (Auto) Lymphocytes % (Manual) Monocytes % (Manual) Eosinophils % (Manual) Basophils % (Manual) Seg Neutrophils # 9.7 H Seg Neutrophils # Man Lymphocytes # (Manual) Monocytes # (Manual) Eosinophils # (Manual) Nucleated RBC % Basophils # (Manual) PT INR APTT Heparin Anti-Xa Level ABG pH POC ABG pO2 ABG pO2 ABG HCO3 ABG O2 Saturation ABG Base Excess POC ABG pCO2 ABG Hemoglobin ABG Oxyhemoglobin ABG Chloride ABG Glucose Oxyhemoglobin Sodium Potassium Chloride Carbon Dioxide BUN Creatinine Glucose POC Glucose 164 H 148 H Lactic Acid Calcium Phosphorus Magnesium AST ALT Lactate Dehydrogenase Total Bilirubin Direct Bilirubin CK-MB (CK-2) C-Reactive Protein NT-Pro-B Natriuret Pep Total Protein Albumin Arterial Blood Glucose Urine WBC (Auto) Urine Creatinine 12/25/19 12/25/19 12/25/19 04:18 05:38 11:44 WBC RBC Hgb Hct MCHC RDW MCV MCH Lymph % (Auto) Banks % (Auto) Banks # Eos # Lymph # (Auto) Banks # (Auto) Eos # (Auto) Seg Neutrophils % Seg Neuts % (Manual) Baso # (Auto) Lymphocytes % (Manual) Monocytes % (Manual) Eosinophils % (Manual) Basophils % (Manual) Seg Neutrophils # Seg Neutrophils # Man Lymphocytes # (Manual) Monocytes # (Manual) Eosinophils # (Manual) Nucleated RBC % Basophils # (Manual) PT INR APTT Heparin Anti-Xa Level ABG pH POC ABG pO2 ABG pO2 ABG HCO3 ABG O2 Saturation ABG Base Excess POC ABG pCO2 ABG Hemoglobin ABG Oxyhemoglobin ABG Chloride ABG Glucose Oxyhemoglobin Sodium Potassium Chloride Carbon Dioxide 33 H BUN 27 H Creatinine 0.6 L Glucose 132 H POC Glucose 152 H 166 H Lactic Acid Calcium Phosphorus Magnesium AST ALT Lactate Dehydrogenase Total Bilirubin Direct Bilirubin CK-MB (CK-2) C-Reactive Protein NT-Pro-B Natriuret Pep Total Protein Albumin Arterial Blood Glucose Urine WBC (Auto) Urine Creatinine 12/25/19 12/26/19 12/26/19 18:29 00:17 00:18 WBC RBC Hgb Hct MCHC RDW MCV MCH Lymph % (Auto) Banks % (Auto) Banks # Eos # Lymph # (Auto) Banks # (Auto) Eos # (Auto) Seg Neutrophils % Seg Neuts % (Manual) Baso # (Auto) Lymphocytes % (Manual) Monocytes % (Manual) Eosinophils % (Manual) Basophils % (Manual) Seg Neutrophils # Seg Neutrophils # Man Lymphocytes # (Manual) Monocytes # (Manual) Eosinophils # (Manual) Nucleated RBC % Basophils # (Manual) PT INR APTT Heparin Anti-Xa Level ABG pH POC ABG pO2 ABG pO2 ABG HCO3 ABG O2 Saturation ABG Base Excess POC ABG pCO2 ABG Hemoglobin ABG Oxyhemoglobin ABG Chloride ABG Glucose Oxyhemoglobin Sodium Potassium Chloride 97.8 L Carbon Dioxide BUN 25 H Creatinine 0.6 L Glucose 140 H POC Glucose 194 H 151 H Lactic Acid Calcium Phosphorus Magnesium AST ALT Lactate Dehydrogenase Total Bilirubin Direct Bilirubin CK-MB (CK-2) C-Reactive Protein NT-Pro-B Natriuret Pep Total Protein Albumin Arterial Blood Glucose Urine WBC (Auto) Urine Creatinine 12/26/19 12/26/19 12/26/19 05:36 11:41 17:50 WBC RBC Hgb Hct MCHC RDW MCV MCH Lymph % (Auto) Banks % (Auto) Banks # Eos # Lymph # (Auto) Banks # (Auto) Eos # (Auto) Seg Neutrophils % Seg Neuts % (Manual) Baso # (Auto) Lymphocytes % (Manual) Monocytes % (Manual) Eosinophils % (Manual) Basophils % (Manual) Seg Neutrophils # Seg Neutrophils # Man Lymphocytes # (Manual) Monocytes # (Manual) Eosinophils # (Manual) Nucleated RBC % Basophils # (Manual) PT INR APTT Heparin Anti-Xa Level ABG pH POC ABG pO2 ABG pO2 ABG HCO3 ABG O2 Saturation ABG Base Excess POC ABG pCO2 ABG Hemoglobin ABG Oxyhemoglobin ABG Chloride ABG Glucose Oxyhemoglobin Sodium Potassium Chloride Carbon Dioxide BUN Creatinine Glucose POC Glucose 156 H 148 H 139 H Lactic Acid Calcium Phosphorus Magnesium AST ALT Lactate Dehydrogenase Total Bilirubin Direct Bilirubin CK-MB (CK-2) C-Reactive Protein NT-Pro-B Natriuret Pep Total Protein Albumin Arterial Blood Glucose Urine WBC (Auto) Urine Creatinine 12/26/19 12/27/19 12/27/19 23:19 05:34 12:02 WBC RBC Hgb Hct MCHC RDW MCV MCH Lymph % (Auto) Banks % (Auto) Banks # Eos # Lymph # (Auto) Banks # (Auto) Eos # (Auto) Seg Neutrophils % Seg Neuts % (Manual) Baso # (Auto) Lymphocytes % (Manual) Monocytes % (Manual) Eosinophils % (Manual) Basophils % (Manual) Seg Neutrophils # Seg Neutrophils # Man Lymphocytes # (Manual) Monocytes # (Manual) Eosinophils # (Manual) Nucleated RBC % Basophils # (Manual) PT INR APTT Heparin Anti-Xa Level ABG pH POC ABG pO2 ABG pO2 ABG HCO3 ABG O2 Saturation ABG Base Excess POC ABG pCO2 ABG Hemoglobin ABG Oxyhemoglobin ABG Chloride ABG Glucose Oxyhemoglobin Sodium Potassium Chloride Carbon Dioxide BUN Creatinine Glucose POC Glucose 161 H 145 H 157 H Lactic Acid Calcium Phosphorus Magnesium AST ALT Lactate Dehydrogenase Total Bilirubin Direct Bilirubin CK-MB (CK-2) C-Reactive Protein NT-Pro-B Natriuret Pep Total Protein Albumin Arterial Blood Glucose Urine WBC (Auto) Urine Creatinine 12/27/19 12/27/19 12/27/19 17:35 20:11 23:00 WBC RBC Hgb Hct MCHC RDW MCV MCH Lymph % (Auto) Banks % (Auto) Banks # Eos # Lymph # (Auto) Banks # (Auto) Eos # (Auto) Seg Neutrophils % Seg Neuts % (Manual) Baso # (Auto) Lymphocytes % (Manual) Monocytes % (Manual) Eosinophils % (Manual) Basophils % (Manual) Seg Neutrophils # Seg Neutrophils # Man Lymphocytes # (Manual) Monocytes # (Manual) Eosinophils # (Manual) Nucleated RBC % Basophils # (Manual) PT INR APTT Heparin Anti-Xa Level 0.19 L ABG pH POC ABG pO2 ABG pO2 ABG HCO3 ABG O2 Saturation ABG Base Excess POC ABG pCO2 ABG Hemoglobin ABG Oxyhemoglobin ABG Chloride ABG Glucose Oxyhemoglobin Sodium Potassium Chloride Carbon Dioxide BUN Creatinine Glucose POC Glucose 158 H 155 H Lactic Acid Calcium Phosphorus Magnesium AST ALT Lactate Dehydrogenase Total Bilirubin Direct Bilirubin CK-MB (CK-2) C-Reactive Protein NT-Pro-B Natriuret Pep Total Protein Albumin Arterial Blood Glucose Urine WBC (Auto) Urine Creatinine 12/27/19 12/28/19 12/28/19 23:45 02:41 02:41 WBC 13.0 H RBC 3.48 L Hgb 9.5 L Hct 30.6 L MCHC 31 L RDW 16.6 H MCV MCH 27 L Lymph % (Auto) 13.0 L Banks % (Auto) 8.0 H Banks # Eos # Lymph # (Auto) Banks # (Auto) 1.0 H Eos # (Auto) Seg Neutrophils % 76.3 H Seg Neuts % (Manual) Baso # (Auto) Lymphocytes % (Manual) Monocytes % (Manual) Eosinophils % (Manual) Basophils % (Manual) Seg Neutrophils # 9.9 H Seg Neutrophils # Man Lymphocytes # (Manual) Monocytes # (Manual) Eosinophils # (Manual) Nucleated RBC % Basophils # (Manual) PT INR APTT Heparin Anti-Xa Level ABG pH POC ABG pO2 ABG pO2 ABG HCO3 ABG O2 Saturation ABG Base Excess POC ABG pCO2 ABG Hemoglobin ABG Oxyhemoglobin ABG Chloride ABG Glucose Oxyhemoglobin Sodium Potassium Chloride Carbon Dioxide BUN 22 H Creatinine 0.6 L Glucose 101 H POC Glucose 130 H Lactic Acid Calcium Phosphorus Magnesium AST ALT Lactate Dehydrogenase Total Bilirubin Direct Bilirubin CK-MB (CK-2) C-Reactive Protein NT-Pro-B Natriuret Pep Total Protein Albumin Arterial Blood Glucose Urine WBC (Auto) Urine Creatinine 12/28/19 12/28/19 12/28/19 06:00 12:34 18:13 WBC RBC Hgb Hct MCHC RDW MCV MCH Lymph % (Auto) Banks % (Auto) Banks # Eos # Lymph # (Auto) Banks # (Auto) Eos # (Auto) Seg Neutrophils % Seg Neuts % (Manual) Baso # (Auto) Lymphocytes % (Manual) Monocytes % (Manual) Eosinophils % (Manual) Basophils % (Manual) Seg Neutrophils # Seg Neutrophils # Man Lymphocytes # (Manual) Monocytes # (Manual) Eosinophils # (Manual) Nucleated RBC % Basophils # (Manual) PT INR APTT Heparin Anti-Xa Level ABG pH POC ABG pO2 ABG pO2 ABG HCO3 ABG O2 Saturation ABG Base Excess POC ABG pCO2 ABG Hemoglobin ABG Oxyhemoglobin ABG Chloride ABG Glucose Oxyhemoglobin Sodium Potassium Chloride Carbon Dioxide BUN Creatinine Glucose POC Glucose 150 H 161 H 128 H Lactic Acid Calcium Phosphorus Magnesium AST ALT Lactate Dehydrogenase Total Bilirubin Direct Bilirubin CK-MB (CK-2) C-Reactive Protein NT-Pro-B Natriuret Pep Total Protein Albumin Arterial Blood Glucose Urine WBC (Auto) Urine Creatinine 12/28/19 12/29/19 12/29/19 23:36 05:21 11:40 WBC RBC Hgb Hct MCHC RDW MCV MCH Lymph % (Auto) Banks % (Auto) Banks # Eos # Lymph # (Auto) Banks # (Auto) Eos # (Auto) Seg Neutrophils % Seg Neuts % (Manual) Baso # (Auto) Lymphocytes % (Manual) Monocytes % (Manual) Eosinophils % (Manual) Basophils % (Manual) Seg Neutrophils # Seg Neutrophils # Man Lymphocytes # (Manual) Monocytes # (Manual) Eosinophils # (Manual) Nucleated RBC % Basophils # (Manual) PT INR APTT Heparin Anti-Xa Level ABG pH POC ABG pO2 ABG pO2 ABG HCO3 ABG O2 Saturation ABG Base Excess POC ABG pCO2 ABG Hemoglobin ABG Oxyhemoglobin ABG Chloride ABG Glucose Oxyhemoglobin Sodium Potassium Chloride Carbon Dioxide BUN Creatinine Glucose POC Glucose 137 H 136 H 166 H Lactic Acid Calcium Phosphorus Magnesium AST ALT Lactate Dehydrogenase Total Bilirubin Direct Bilirubin CK-MB (CK-2) C-Reactive Protein NT-Pro-B Natriuret Pep Total Protein Albumin Arterial Blood Glucose Urine WBC (Auto) Urine Creatinine 12/29/19 12/29/19 12/29/19 17:23 19:21 23:38 WBC RBC Hgb Hct MCHC RDW MCV MCH Lymph % (Auto) Banks % (Auto) Banks # Eos # Lymph # (Auto) Banks # (Auto) Eos # (Auto) Seg Neutrophils % Seg Neuts % (Manual) Baso # (Auto) Lymphocytes % (Manual) Monocytes % (Manual) Eosinophils % (Manual) Basophils % (Manual) Seg Neutrophils # Seg Neutrophils # Man Lymphocytes # (Manual) Monocytes # (Manual) Eosinophils # (Manual) Nucleated RBC % Basophils # (Manual) PT INR APTT Heparin Anti-Xa Level 0.20 L ABG pH POC ABG pO2 ABG pO2 ABG HCO3 ABG O2 Saturation ABG Base Excess POC ABG pCO2 ABG Hemoglobin ABG Oxyhemoglobin ABG Chloride ABG Glucose Oxyhemoglobin Sodium Potassium Chloride Carbon Dioxide BUN Creatinine Glucose POC Glucose 144 H 141 H Lactic Acid Calcium Phosphorus Magnesium AST ALT Lactate Dehydrogenase Total Bilirubin Direct Bilirubin CK-MB (CK-2) C-Reactive Protein NT-Pro-B Natriuret Pep Total Protein Albumin Arterial Blood Glucose Urine WBC (Auto) Urine Creatinine 12/30/19 12/30/19 12/30/19 03:58 03:58 04:59 WBC RBC 3.54 L Hgb 9.8 L Hct 30.7 L MCHC RDW 16.8 H MCV MCH Lymph % (Auto) Banks % (Auto) Banks # Eos # Lymph # (Auto) Banks # (Auto) Eos # (Auto) Seg Neutrophils % Seg Neuts % (Manual) Baso # (Auto) Lymphocytes % (Manual) Monocytes % (Manual) Eosinophils % (Manual) Basophils % (Manual) Seg Neutrophils # Seg Neutrophils # Man Lymphocytes # (Manual) Monocytes # (Manual) Eosinophils # (Manual) Nucleated RBC % Basophils # (Manual) PT INR APTT Heparin Anti-Xa Level ABG pH POC ABG pO2 ABG pO2 ABG HCO3 29.8 H ABG O2 Saturation ABG Base Excess 4.8 H POC ABG pCO2 ABG Hemoglobin 11.2 L ABG Oxyhemoglobin ABG Chloride ABG Glucose Oxyhemoglobin 93.8 L Sodium Potassium Chloride 97.8 L Carbon Dioxide BUN 26 H Creatinine Glucose 168 H POC Glucose Lactic Acid Calcium Phosphorus Magnesium AST ALT Lactate Dehydrogenase Total Bilirubin Direct Bilirubin CK-MB (CK-2) C-Reactive Protein NT-Pro-B Natriuret Pep Total Protein Albumin Arterial Blood Glucose Urine WBC (Auto) Urine Creatinine 12/30/19 12/30/19 12/30/19 05:45 11:34 17:28 WBC RBC Hgb Hct MCHC RDW MCV MCH Lymph % (Auto) Banks % (Auto) Banks # Eos # Lymph # (Auto) Banks # (Auto) Eos # (Auto) Seg Neutrophils % Seg Neuts % (Manual) Baso # (Auto) Lymphocytes % (Manual) Monocytes % (Manual) Eosinophils % (Manual) Basophils % (Manual) Seg Neutrophils # Seg Neutrophils # Man Lymphocytes # (Manual) Monocytes # (Manual) Eosinophils # (Manual) Nucleated RBC % Basophils # (Manual) PT INR APTT Heparin Anti-Xa Level ABG pH POC ABG pO2 ABG pO2 ABG HCO3 ABG O2 Saturation ABG Base Excess POC ABG pCO2 ABG Hemoglobin ABG Oxyhemoglobin ABG Chloride ABG Glucose Oxyhemoglobin Sodium Potassium Chloride Carbon Dioxide BUN Creatinine Glucose POC Glucose 163 H 180 H 150 H Lactic Acid Calcium Phosphorus Magnesium AST ALT Lactate Dehydrogenase Total Bilirubin Direct Bilirubin CK-MB (CK-2) C-Reactive Protein NT-Pro-B Natriuret Pep Total Protein Albumin Arterial Blood Glucose Urine WBC (Auto) Urine Creatinine 12/30/19 12/31/19 12/31/19 23:43 04:55 05:07 WBC RBC Hgb Hct MCHC RDW MCV MCH Lymph % (Auto) Banks % (Auto) Banks # Eos # Lymph # (Auto) Banks # (Auto) Eos # (Auto) Seg Neutrophils % Seg Neuts % (Manual) Baso # (Auto) Lymphocytes % (Manual) Monocytes % (Manual) Eosinophils % (Manual) Basophils % (Manual) Seg Neutrophils # Seg Neutrophils # Man Lymphocytes # (Manual) Monocytes # (Manual) Eosinophils # (Manual) Nucleated RBC % Basophils # (Manual) PT INR APTT Heparin Anti-Xa Level ABG pH POC ABG pO2 ABG pO2 ABG HCO3 ABG O2 Saturation ABG Base Excess POC ABG pCO2 ABG Hemoglobin ABG Oxyhemoglobin ABG Chloride ABG Glucose Oxyhemoglobin Sodium Potassium 5.6 H D Chloride Carbon Dioxide BUN 33 H Creatinine Glucose 131 H POC Glucose 142 H 134 H Lactic Acid Calcium Phosphorus Magnesium AST ALT Lactate Dehydrogenase Total Bilirubin Direct Bilirubin CK-MB (CK-2) C-Reactive Protein NT-Pro-B Natriuret Pep Total Protein Albumin Arterial Blood Glucose Urine WBC (Auto) Urine Creatinine 12/31/19 12/31/19 12/31/19 11:30 17:19 17:36 WBC RBC Hgb Hct MCHC RDW MCV MCH Lymph % (Auto) Banks % (Auto) Banks # Eos # Lymph # (Auto) Banks # (Auto) Eos # (Auto) Seg Neutrophils % Seg Neuts % (Manual) Baso # (Auto) Lymphocytes % (Manual) Monocytes % (Manual) Eosinophils % (Manual) Basophils % (Manual) Seg Neutrophils # Seg Neutrophils # Man Lymphocytes # (Manual) Monocytes # (Manual) Eosinophils # (Manual) Nucleated RBC % Basophils # (Manual) PT INR APTT Heparin Anti-Xa Level ABG pH POC ABG pO2 ABG pO2 ABG HCO3 ABG O2 Saturation ABG Base Excess POC ABG pCO2 ABG Hemoglobin ABG Oxyhemoglobin ABG Chloride ABG Glucose Oxyhemoglobin Sodium Potassium Chloride Carbon Dioxide BUN 35 H Creatinine Glucose 156 H POC Glucose 158 H 181 H Lactic Acid Calcium Phosphorus Magnesium AST ALT Lactate Dehydrogenase Total Bilirubin Direct Bilirubin CK-MB (CK-2) C-Reactive Protein NT-Pro-B Natriuret Pep Total Protein Albumin Arterial Blood Glucose Urine WBC (Auto) Urine Creatinine 12/31/19 12/31/19 12/31/19 18:16 19:41 21:53 WBC RBC Hgb Hct MCHC RDW MCV MCH Lymph % (Auto) Banks % (Auto) Banks # Eos # Lymph # (Auto) Banks # (Auto) Eos # (Auto) Seg Neutrophils % Seg Neuts % (Manual) Baso # (Auto) Lymphocytes % (Manual) Monocytes % (Manual) Eosinophils % (Manual) Basophils % (Manual) Seg Neutrophils # Seg Neutrophils # Man Lymphocytes # (Manual) Monocytes # (Manual) Eosinophils # (Manual) Nucleated RBC % Basophils # (Manual) PT INR APTT Heparin Anti-Xa Level 0.20 L ABG pH POC ABG pO2 ABG pO2 ABG HCO3 ABG O2 Saturation ABG Base Excess POC ABG pCO2 ABG Hemoglobin ABG Oxyhemoglobin ABG Chloride ABG Glucose Oxyhemoglobin Sodium Potassium Chloride Carbon Dioxide BUN 34 H Creatinine Glucose 169 H POC Glucose 141 H Lactic Acid Calcium Phosphorus Magnesium AST ALT Lactate Dehydrogenase Total Bilirubin Direct Bilirubin CK-MB (CK-2) C-Reactive Protein NT-Pro-B Natriuret Pep Total Protein Albumin Arterial Blood Glucose Urine WBC (Auto) Urine Creatinine 12/31/19 01/01/20 01/01/20 23:51 05:17 10:40 WBC RBC Hgb Hct MCHC RDW MCV MCH Lymph % (Auto) Banks % (Auto) Banks # Eos # Lymph # (Auto) Banks # (Auto) Eos # (Auto) Seg Neutrophils % Seg Neuts % (Manual) Baso # (Auto) Lymphocytes % (Manual) Monocytes % (Manual) Eosinophils % (Manual) Basophils % (Manual) Seg Neutrophils # Seg Neutrophils # Man Lymphocytes # (Manual) Monocytes # (Manual) Eosinophils # (Manual) Nucleated RBC % Basophils # (Manual) PT INR APTT Heparin Anti-Xa Level ABG pH POC ABG pO2 ABG pO2 ABG HCO3 ABG O2 Saturation ABG Base Excess POC ABG pCO2 ABG Hemoglobin ABG Oxyhemoglobin ABG Chloride ABG Glucose Oxyhemoglobin Sodium Potassium Chloride Carbon Dioxide BUN 31 H Creatinine 0.7 L Glucose 137 H POC Glucose 131 H 155 H Lactic Acid Calcium Phosphorus Magnesium AST 73 H ALT 97 H Lactate Dehydrogenase Total Bilirubin Direct Bilirubin CK-MB (CK-2) C-Reactive Protein NT-Pro-B Natriuret Pep 3866 H Total Protein Albumin 2.8 L Arterial Blood Glucose Urine WBC (Auto) Urine Creatinine 01/01/20 01/01/20 01/01/20 12:26 15:33 17:53 WBC 14.3 H RBC 3.35 L Hgb 9.1 L Hct 28.8 L MCHC RDW 17.0 H MCV MCH 27 L Lymph % (Auto) 7.0 L Banks % (Auto) 7.6 H Banks # Eos # Lymph # (Auto) 1.0 L Banks # (Auto) 1.1 H Eos # (Auto) Seg Neutrophils % 83.3 H Seg Neuts % (Manual) Baso # (Auto) Lymphocytes % (Manual) Monocytes % (Manual) Eosinophils % (Manual) Basophils % (Manual) Seg Neutrophils # 12.0 H Seg Neutrophils # Man Lymphocytes # (Manual) Monocytes # (Manual) Eosinophils # (Manual) Nucleated RBC % Basophils # (Manual) PT INR APTT Heparin Anti-Xa Level ABG pH POC ABG pO2 ABG pO2 ABG HCO3 ABG O2 Saturation ABG Base Excess POC ABG pCO2 ABG Hemoglobin ABG Oxyhemoglobin ABG Chloride ABG Glucose Oxyhemoglobin Sodium Potassium Chloride Carbon Dioxide BUN Creatinine Glucose POC Glucose 128 H 128 H Lactic Acid Calcium Phosphorus Magnesium AST ALT Lactate Dehydrogenase Total Bilirubin Direct Bilirubin CK-MB (CK-2) C-Reactive Protein NT-Pro-B Natriuret Pep Total Protein Albumin Arterial Blood Glucose Urine WBC (Auto) Urine Creatinine 01/01/20 01/02/20 01/02/20 23:04 05:39 07:00 WBC RBC Hgb Hct MCHC RDW MCV MCH Lymph % (Auto) Banks % (Auto) Banks # Eos # Lymph # (Auto) Banks # (Auto) Eos # (Auto) Seg Neutrophils % Seg Neuts % (Manual) Baso # (Auto) Lymphocytes % (Manual) Monocytes % (Manual) Eosinophils % (Manual) Basophils % (Manual) Seg Neutrophils # Seg Neutrophils # Man Lymphocytes # (Manual) Monocytes # (Manual) Eosinophils # (Manual) Nucleated RBC % Basophils # (Manual) PT INR APTT Heparin Anti-Xa Level 0.13 L ABG pH POC ABG pO2 ABG pO2 ABG HCO3 ABG O2 Saturation ABG Base Excess POC ABG pCO2 ABG Hemoglobin ABG Oxyhemoglobin ABG Chloride ABG Glucose Oxyhemoglobin Sodium Potassium Chloride Carbon Dioxide BUN Creatinine Glucose POC Glucose 120 H 169 H Lactic Acid Calcium Phosphorus Magnesium AST ALT Lactate Dehydrogenase Total Bilirubin Direct Bilirubin CK-MB (CK-2) C-Reactive Protein NT-Pro-B Natriuret Pep Total Protein Albumin Arterial Blood Glucose Urine WBC (Auto) Urine Creatinine 01/02/20 01/02/20 01/02/20 12:15 14:06 17:58 WBC RBC Hgb Hct MCHC RDW MCV MCH Lymph % (Auto) Banks % (Auto) Banks # Eos # Lymph # (Auto) Banks # (Auto) Eos # (Auto) Seg Neutrophils % Seg Neuts % (Manual) Baso # (Auto) Lymphocytes % (Manual) Monocytes % (Manual) Eosinophils % (Manual) Basophils % (Manual) Seg Neutrophils # Seg Neutrophils # Man Lymphocytes # (Manual) Monocytes # (Manual) Eosinophils # (Manual) Nucleated RBC % Basophils # (Manual) PT INR APTT Heparin Anti-Xa Level < 0.10 L ABG pH POC ABG pO2 ABG pO2 ABG HCO3 ABG O2 Saturation ABG Base Excess POC ABG pCO2 ABG Hemoglobin ABG Oxyhemoglobin ABG Chloride ABG Glucose Oxyhemoglobin Sodium Potassium Chloride Carbon Dioxide BUN Creatinine Glucose POC Glucose 190 H 198 H Lactic Acid Calcium Phosphorus Magnesium AST ALT Lactate Dehydrogenase Total Bilirubin Direct Bilirubin CK-MB (CK-2) C-Reactive Protein NT-Pro-B Natriuret Pep Total Protein Albumin Arterial Blood Glucose Urine WBC (Auto) Urine Creatinine 01/02/20 01/02/20 01/03/20 21:43 23:33 05:42 WBC RBC Hgb Hct MCHC RDW MCV MCH Lymph % (Auto) Banks % (Auto) Banks # Eos # Lymph # (Auto) Banks # (Auto) Eos # (Auto) Seg Neutrophils % Seg Neuts % (Manual) Baso # (Auto) Lymphocytes % (Manual) Monocytes % (Manual) Eosinophils % (Manual) Basophils % (Manual) Seg Neutrophils # Seg Neutrophils # Man Lymphocytes # (Manual) Monocytes # (Manual) Eosinophils # (Manual) Nucleated RBC % Basophils # (Manual) PT INR APTT Heparin Anti-Xa Level 0.10 L ABG pH POC ABG pO2 ABG pO2 ABG HCO3 ABG O2 Saturation ABG Base Excess POC ABG pCO2 ABG Hemoglobin ABG Oxyhemoglobin ABG Chloride ABG Glucose Oxyhemoglobin Sodium Potassium Chloride Carbon Dioxide BUN Creatinine Glucose POC Glucose 180 H 163 H Lactic Acid Calcium Phosphorus Magnesium AST ALT Lactate Dehydrogenase Total Bilirubin Direct Bilirubin CK-MB (CK-2) C-Reactive Protein NT-Pro-B Natriuret Pep Total Protein Albumin Arterial Blood Glucose Urine WBC (Auto) Urine Creatinine 01/03/20 01/03/20 01/03/20 06:50 07:25 07:45 WBC 12.1 H RBC 3.35 L Hgb 9.0 L Hct 28.9 L MCHC 31 L RDW 16.6 H MCV MCH 27 L Lymph % (Auto) 13.0 L Banks % (Auto) 8.6 H Banks # Eos # Lymph # (Auto) Banks # (Auto) 1.0 H Eos # (Auto) Seg Neutrophils % 75.9 H Seg Neuts % (Manual) Baso # (Auto) Lymphocytes % (Manual) Monocytes % (Manual) Eosinophils % (Manual) Basophils % (Manual) Seg Neutrophils # 9.2 H Seg Neutrophils # Man Lymphocytes # (Manual) Monocytes # (Manual) Eosinophils # (Manual) Nucleated RBC % Basophils # (Manual) PT INR APTT Heparin Anti-Xa Level 0.29 L ABG pH POC ABG pO2 ABG pO2 ABG HCO3 ABG O2 Saturation ABG Base Excess POC ABG pCO2 ABG Hemoglobin ABG Oxyhemoglobin ABG Chloride ABG Glucose Oxyhemoglobin Sodium Potassium 3.3 L D Chloride Carbon Dioxide 35 H D BUN 23 H Creatinine 0.6 L Glucose 149 H POC Glucose Lactic Acid Calcium Phosphorus Magnesium AST ALT 88 H Lactate Dehydrogenase Total Bilirubin Direct Bilirubin CK-MB (CK-2) C-Reactive Protein NT-Pro-B Natriuret Pep Total Protein 6.2 L Albumin 2.9 L Arterial Blood Glucose Urine WBC (Auto) Urine Creatinine 01/03/20 01/03/20 01/03/20 12:05 17:42 18:30 WBC RBC Hgb Hct MCHC RDW MCV MCH Lymph % (Auto) Banks % (Auto) Banks # Eos # Lymph # (Auto) Banks # (Auto) Eos # (Auto) Seg Neutrophils % Seg Neuts % (Manual) Baso # (Auto) Lymphocytes % (Manual) Monocytes % (Manual) Eosinophils % (Manual) Basophils % (Manual) Seg Neutrophils # Seg Neutrophils # Man Lymphocytes # (Manual) Monocytes # (Manual) Eosinophils # (Manual) Nucleated RBC % Basophils # (Manual) PT INR APTT Heparin Anti-Xa Level ABG pH POC ABG pO2 ABG pO2 70.7 L ABG HCO3 36.1 H ABG O2 Saturation 94.4 L ABG Base Excess 10.0 H POC ABG pCO2 ABG Hemoglobin 9.7 L ABG Oxyhemoglobin ABG Chloride ABG Glucose Oxyhemoglobin 91.8 L Sodium Potassium Chloride Carbon Dioxide BUN Creatinine Glucose POC Glucose 128 H 132 H Lactic Acid Calcium Phosphorus Magnesium AST ALT Lactate Dehydrogenase Total Bilirubin Direct Bilirubin CK-MB (CK-2) C-Reactive Protein NT-Pro-B Natriuret Pep Total Protein Albumin Arterial Blood Glucose Urine WBC (Auto) Urine Creatinine 01/04/20 01/04/20 01/04/20 00:10 04:26 05:23 WBC RBC Hgb Hct MCHC RDW MCV MCH Lymph % (Auto) Banks % (Auto) Banks # Eos # Lymph # (Auto) Banks # (Auto) Eos # (Auto) Seg Neutrophils % Seg Neuts % (Manual) Baso # (Auto) Lymphocytes % (Manual) Monocytes % (Manual) Eosinophils % (Manual) Basophils % (Manual) Seg Neutrophils # Seg Neutrophils # Man Lymphocytes # (Manual) Monocytes # (Manual) Eosinophils # (Manual) Nucleated RBC % Basophils # (Manual) PT INR APTT Heparin Anti-Xa Level 0.16 L ABG pH POC ABG pO2 ABG pO2 ABG HCO3 ABG O2 Saturation ABG Base Excess POC ABG pCO2 ABG Hemoglobin ABG Oxyhemoglobin ABG Chloride ABG Glucose Oxyhemoglobin Sodium Potassium Chloride Carbon Dioxide BUN Creatinine Glucose POC Glucose 121 H 119 H Lactic Acid Calcium Phosphorus Magnesium AST ALT Lactate Dehydrogenase Total Bilirubin Direct Bilirubin CK-MB (CK-2) C-Reactive Protein NT-Pro-B Natriuret Pep Total Protein Albumin Arterial Blood Glucose Urine WBC (Auto) Urine Creatinine 01/04/20 01/04/20 01/04/20 09:50 09:50 12:18 WBC 15.4 H RBC 3.30 L Hgb 8.7 L Hct 28.2 L MCHC 31 L RDW 17.0 H MCV MCH 26 L Lymph % (Auto) Banks % (Auto) 7.6 H Banks # Eos # Lymph # (Auto) Banks # (Auto) 1.2 H Eos # (Auto) Seg Neutrophils % 75.4 H Seg Neuts % (Manual) Baso # (Auto) Lymphocytes % (Manual) Monocytes % (Manual) Eosinophils % (Manual) Basophils % (Manual) Seg Neutrophils # 11.6 H Seg Neutrophils # Man Lymphocytes # (Manual) Monocytes # (Manual) Eosinophils # (Manual) Nucleated RBC % Basophils # (Manual) PT INR APTT Heparin Anti-Xa Level ABG pH POC ABG pO2 ABG pO2 ABG HCO3 ABG O2 Saturation ABG Base Excess POC ABG pCO2 ABG Hemoglobin ABG Oxyhemoglobin ABG Chloride ABG Glucose Oxyhemoglobin Sodium 148 H Potassium 3.5 L Chloride Carbon Dioxide 32 H BUN Creatinine 0.6 L Glucose 114 H POC Glucose 111 H Lactic Acid Calcium Phosphorus Magnesium AST ALT 59 H Lactate Dehydrogenase Total Bilirubin Direct Bilirubin CK-MB (CK-2) C-Reactive Protein NT-Pro-B Natriuret Pep Total Protein Albumin 2.6 L Arterial Blood Glucose Urine WBC (Auto) Urine Creatinine 01/05/20 01/05/20 01/05/20 04:05 04:05 05:19 WBC 11.7 H RBC 3.50 L Hgb 9.3 L Hct 29.9 L MCHC 31 L RDW 16.6 H MCV MCH 27 L Lymph % (Auto) 13.1 L Banks % (Auto) 9.7 H Banks # Eos # Lymph # (Auto) Banks # (Auto) 1.1 H Eos # (Auto) Seg Neutrophils % 74.0 H Seg Neuts % (Manual) Baso # (Auto) Lymphocytes % (Manual) Monocytes % (Manual) Eosinophils % (Manual) Basophils % (Manual) Seg Neutrophils # 8.6 H Seg Neutrophils # Man Lymphocytes # (Manual) Monocytes # (Manual) Eosinophils # (Manual) Nucleated RBC % Basophils # (Manual) PT INR APTT Heparin Anti-Xa Level ABG pH POC ABG pO2 ABG pO2 ABG HCO3 ABG O2 Saturation ABG Base Excess POC ABG pCO2 ABG Hemoglobin ABG Oxyhemoglobin ABG Chloride ABG Glucose Oxyhemoglobin Sodium 151 H Potassium Chloride Carbon Dioxide 34 H BUN Creatinine 0.7 L Glucose POC Glucose 112 H Lactic Acid Calcium Phosphorus Magnesium AST ALT 59 H Lactate Dehydrogenase Total Bilirubin Direct Bilirubin CK-MB (CK-2) C-Reactive Protein NT-Pro-B Natriuret Pep Total Protein 5.8 L Albumin 2.6 L Arterial Blood Glucose Urine WBC (Auto) Urine Creatinine 01/05/20 01/06/20 01/06/20 16:04 00:23 04:44 WBC RBC 3.36 L Hgb 8.9 L Hct 28.7 L MCHC 31 L RDW 16.9 H MCV MCH 26 L Lymph % (Auto) Banks % (Auto) 9.4 H Banks # Eos # Lymph # (Auto) Banks # (Auto) Eos # (Auto) Seg Neutrophils % Seg Neuts % (Manual) Baso # (Auto) Lymphocytes % (Manual) Monocytes % (Manual) Eosinophils % (Manual) Basophils % (Manual) Seg Neutrophils # Seg Neutrophils # Man Lymphocytes # (Manual) Monocytes # (Manual) Eosinophils # (Manual) Nucleated RBC % Basophils # (Manual) PT INR APTT Heparin Anti-Xa Level ABG pH POC ABG pO2 ABG pO2 ABG HCO3 ABG O2 Saturation ABG Base Excess POC ABG pCO2 ABG Hemoglobin ABG Oxyhemoglobin ABG Chloride ABG Glucose Oxyhemoglobin Sodium 151 H Potassium 3.2 L Chloride Carbon Dioxide 34 H BUN Creatinine 0.6 L Glucose POC Glucose 107 H Lactic Acid Calcium Phosphorus Magnesium AST ALT Lactate Dehydrogenase Total Bilirubin Direct Bilirubin CK-MB (CK-2) C-Reactive Protein NT-Pro-B Natriuret Pep Total Protein Albumin Arterial Blood Glucose Urine WBC (Auto) Urine Creatinine 01/06/20 01/06/20 01/06/20 04:44 05:33 12:04 WBC RBC Hgb Hct MCHC RDW MCV MCH Lymph % (Auto) Banks % (Auto) Banks # Eos # Lymph # (Auto) Banks # (Auto) Eos # (Auto) Seg Neutrophils % Seg Neuts % (Manual) Baso # (Auto) Lymphocytes % (Manual) Monocytes % (Manual) Eosinophils % (Manual) Basophils % (Manual) Seg Neutrophils # Seg Neutrophils # Man Lymphocytes # (Manual) Monocytes # (Manual) Eosinophils # (Manual) Nucleated RBC % Basophils # (Manual) PT INR APTT Heparin Anti-Xa Level ABG pH POC ABG pO2 ABG pO2 ABG HCO3 ABG O2 Saturation ABG Base Excess POC ABG pCO2 ABG Hemoglobin ABG Oxyhemoglobin ABG Chloride ABG Glucose Oxyhemoglobin Sodium 151 H Potassium 3.4 L Chloride Carbon Dioxide 33 H BUN Creatinine 0.6 L Glucose 118 H POC Glucose 118 H 123 H Lactic Acid Calcium Phosphorus Magnesium AST ALT Lactate Dehydrogenase Total Bilirubin Direct Bilirubin CK-MB (CK-2) C-Reactive Protein NT-Pro-B Natriuret Pep Total Protein 6.2 L Albumin 2.6 L Arterial Blood Glucose Urine WBC (Auto) Urine Creatinine 01/06/20 01/07/20 01/07/20 17:54 00:06 04:10 WBC RBC 3.42 L Hgb 8.9 L Hct 29.0 L MCHC 31 L RDW 17.1 H MCV MCH 26 L Lymph % (Auto) Banks % (Auto) 8.4 H Banks # Eos # Lymph # (Auto) Banks # (Auto) Eos # (Auto) Seg Neutrophils % Seg Neuts % (Manual) Baso # (Auto) Lymphocytes % (Manual) Monocytes % (Manual) Eosinophils % (Manual) Basophils % (Manual) Seg Neutrophils # Seg Neutrophils # Man Lymphocytes # (Manual) Monocytes # (Manual) Eosinophils # (Manual) Nucleated RBC % Basophils # (Manual) PT INR APTT Heparin Anti-Xa Level ABG pH POC ABG pO2 ABG pO2 ABG HCO3 ABG O2 Saturation ABG Base Excess POC ABG pCO2 ABG Hemoglobin ABG Oxyhemoglobin ABG Chloride ABG Glucose Oxyhemoglobin Sodium Potassium Chloride Carbon Dioxide BUN Creatinine Glucose POC Glucose 112 H 126 H Lactic Acid Calcium Phosphorus Magnesium AST ALT Lactate Dehydrogenase Total Bilirubin Direct Bilirubin CK-MB (CK-2) C-Reactive Protein NT-Pro-B Natriuret Pep Total Protein Albumin Arterial Blood Glucose Urine WBC (Auto) Urine Creatinine 01/07/20 01/07/20 01/07/20 04:10 05:59 12:27 WBC RBC Hgb Hct MCHC RDW MCV MCH Lymph % (Auto) Banks % (Auto) Banks # Eos # Lymph # (Auto) Banks # (Auto) Eos # (Auto) Seg Neutrophils % Seg Neuts % (Manual) Baso # (Auto) Lymphocytes % (Manual) Monocytes % (Manual) Eosinophils % (Manual) Basophils % (Manual) Seg Neutrophils # Seg Neutrophils # Man Lymphocytes # (Manual) Monocytes # (Manual) Eosinophils # (Manual) Nucleated RBC % Basophils # (Manual) PT INR APTT Heparin Anti-Xa Level ABG pH POC ABG pO2 ABG pO2 ABG HCO3 ABG O2 Saturation ABG Base Excess POC ABG pCO2 ABG Hemoglobin ABG Oxyhemoglobin ABG Chloride ABG Glucose Oxyhemoglobin Sodium 153 H Potassium 3.5 L Chloride Carbon Dioxide 34 H BUN Creatinine 0.6 L Glucose 121 H POC Glucose 121 H 126 H Lactic Acid Calcium Phosphorus Magnesium AST ALT Lactate Dehydrogenase Total Bilirubin Direct Bilirubin CK-MB (CK-2) C-Reactive Protein NT-Pro-B Natriuret Pep Total Protein 5.9 L Albumin 2.4 L Arterial Blood Glucose Urine WBC (Auto) Urine Creatinine 01/07/20 01/08/20 01/08/20 18:12 00:03 05:41 WBC RBC Hgb Hct MCHC RDW MCV MCH Lymph % (Auto) Banks % (Auto) Banks # Eos # Lymph # (Auto) Banks # (Auto) Eos # (Auto) Seg Neutrophils % Seg Neuts % (Manual) Baso # (Auto) Lymphocytes % (Manual) Monocytes % (Manual) Eosinophils % (Manual) Basophils % (Manual) Seg Neutrophils # Seg Neutrophils # Man Lymphocytes # (Manual) Monocytes # (Manual) Eosinophils # (Manual) Nucleated RBC % Basophils # (Manual) PT INR APTT Heparin Anti-Xa Level ABG pH POC ABG pO2 ABG pO2 ABG HCO3 ABG O2 Saturation ABG Base Excess POC ABG pCO2 ABG Hemoglobin ABG Oxyhemoglobin ABG Chloride ABG Glucose Oxyhemoglobin Sodium Potassium Chloride Carbon Dioxide BUN Creatinine Glucose POC Glucose 124 H 130 H 138 H Lactic Acid Calcium Phosphorus Magnesium AST ALT Lactate Dehydrogenase Total Bilirubin Direct Bilirubin CK-MB (CK-2) C-Reactive Protein NT-Pro-B Natriuret Pep Total Protein Albumin Arterial Blood Glucose Urine WBC (Auto) Urine Creatinine 01/08/20 01/08/20 01/08/20 09:28 11:42 18:21 WBC RBC Hgb Hct MCHC RDW MCV MCH Lymph % (Auto) Banks % (Auto) Banks # Eos # Lymph # (Auto) Banks # (Auto) Eos # (Auto) Seg Neutrophils % Seg Neuts % (Manual) Baso # (Auto) Lymphocytes % (Manual) Monocytes % (Manual) Eosinophils % (Manual) Basophils % (Manual) Seg Neutrophils # Seg Neutrophils # Man Lymphocytes # (Manual) Monocytes # (Manual) Eosinophils # (Manual) Nucleated RBC % Basophils # (Manual) PT INR APTT Heparin Anti-Xa Level ABG pH POC ABG pO2 ABG pO2 ABG HCO3 ABG O2 Saturation ABG Base Excess POC ABG pCO2 ABG Hemoglobin ABG Oxyhemoglobin ABG Chloride ABG Glucose Oxyhemoglobin Sodium Potassium Chloride Carbon Dioxide BUN Creatinine Glucose POC Glucose 181 H 150 H 129 H Lactic Acid Calcium Phosphorus Magnesium AST ALT Lactate Dehydrogenase Total Bilirubin Direct Bilirubin CK-MB (CK-2) C-Reactive Protein NT-Pro-B Natriuret Pep Total Protein Albumin Arterial Blood Glucose Urine WBC (Auto) Urine Creatinine 01/08/20 01/08/20 01/09/20 19:25 23:55 04:11 WBC RBC 3.43 L Hgb 8.9 L Hct 28.7 L MCHC 31 L RDW 17.6 H MCV MCH 26 L Lymph % (Auto) Banks % (Auto) 8.6 H Banks # Eos # Lymph # (Auto) Banks # (Auto) Eos # (Auto) Seg Neutrophils % Seg Neuts % (Manual) Baso # (Auto) Lymphocytes % (Manual) Monocytes % (Manual) Eosinophils % (Manual) Basophils % (Manual) Seg Neutrophils # Seg Neutrophils # Man Lymphocytes # (Manual) Monocytes # (Manual) Eosinophils # (Manual) Nucleated RBC % Basophils # (Manual) PT INR APTT Heparin Anti-Xa Level ABG pH POC ABG pO2 ABG pO2 ABG HCO3 ABG O2 Saturation ABG Base Excess POC ABG pCO2 ABG Hemoglobin ABG Oxyhemoglobin ABG Chloride ABG Glucose Oxyhemoglobin Sodium Potassium Chloride Carbon Dioxide BUN Creatinine 0.7 L Glucose 117 H POC Glucose 132 H Lactic Acid Calcium Phosphorus Magnesium AST ALT Lactate Dehydrogenase Total Bilirubin Direct Bilirubin CK-MB (CK-2) C-Reactive Protein NT-Pro-B Natriuret Pep Total Protein Albumin Arterial Blood Glucose Urine WBC (Auto) Urine Creatinine 01/09/20 01/09/20 01/09/20 04:11 05:38 22:58 WBC RBC Hgb Hct MCHC RDW MCV MCH Lymph % (Auto) Banks % (Auto) Banks # Eos # Lymph # (Auto) Banks # (Auto) Eos # (Auto) Seg Neutrophils % Seg Neuts % (Manual) Baso # (Auto) Lymphocytes % (Manual) Monocytes % (Manual) Eosinophils % (Manual) Basophils % (Manual) Seg Neutrophils # Seg Neutrophils # Man Lymphocytes # (Manual) Monocytes # (Manual) Eosinophils # (Manual) Nucleated RBC % Basophils # (Manual) PT INR APTT Heparin Anti-Xa Level ABG pH POC ABG pO2 ABG pO2 ABG HCO3 ABG O2 Saturation ABG Base Excess POC ABG pCO2 ABG Hemoglobin ABG Oxyhemoglobin ABG Chloride ABG Glucose Oxyhemoglobin Sodium 147 H Potassium 3.3 L D Chloride Carbon Dioxide 32 H BUN Creatinine 0.6 L Glucose 106 H POC Glucose 107 H 113 H Lactic Acid Calcium Phosphorus Magnesium AST ALT Lactate Dehydrogenase Total Bilirubin Direct Bilirubin CK-MB (CK-2) C-Reactive Protein NT-Pro-B Natriuret Pep Total Protein Albumin Arterial Blood Glucose Urine WBC (Auto) Urine Creatinine 01/10/20 01/10/20 01/10/20 04:05 11:36 17:54 WBC RBC Hgb Hct MCHC RDW MCV MCH Lymph % (Auto) Banks % (Auto) Banks # Eos # Lymph # (Auto) Banks # (Auto) Eos # (Auto) Seg Neutrophils % Seg Neuts % (Manual) Baso # (Auto) Lymphocytes % (Manual) Monocytes % (Manual) Eosinophils % (Manual) Basophils % (Manual) Seg Neutrophils # Seg Neutrophils # Man Lymphocytes # (Manual) Monocytes # (Manual) Eosinophils # (Manual) Nucleated RBC % Basophils # (Manual) PT INR APTT Heparin Anti-Xa Level ABG pH POC ABG pO2 ABG pO2 ABG HCO3 ABG O2 Saturation ABG Base Excess POC ABG pCO2 ABG Hemoglobin ABG Oxyhemoglobin ABG Chloride ABG Glucose Oxyhemoglobin Sodium Potassium Chloride Carbon Dioxide BUN Creatinine 0.7 L Glucose 110 H POC Glucose 129 H 117 H Lactic Acid Calcium Phosphorus Magnesium AST ALT Lactate Dehydrogenase Total Bilirubin Direct Bilirubin CK-MB (CK-2) C-Reactive Protein NT-Pro-B Natriuret Pep Total Protein Albumin Arterial Blood Glucose Urine WBC (Auto) Urine Creatinine 01/10/20 01/11/20 01/11/20 23:52 03:19 12:09 WBC RBC Hgb Hct MCHC RDW MCV MCH Lymph % (Auto) Banks % (Auto) Banks # Eos # Lymph # (Auto) Banks # (Auto) Eos # (Auto) Seg Neutrophils % Seg Neuts % (Manual) Baso # (Auto) Lymphocytes % (Manual) Monocytes % (Manual) Eosinophils % (Manual) Basophils % (Manual) Seg Neutrophils # Seg Neutrophils # Man Lymphocytes # (Manual) Monocytes # (Manual) Eosinophils # (Manual) Nucleated RBC % Basophils # (Manual) PT INR APTT Heparin Anti-Xa Level ABG pH POC ABG pO2 ABG pO2 ABG HCO3 ABG O2 Saturation ABG Base Excess POC ABG pCO2 ABG Hemoglobin ABG Oxyhemoglobin ABG Chloride ABG Glucose Oxyhemoglobin Sodium Potassium Chloride Carbon Dioxide BUN Creatinine Glucose POC Glucose 117 H 136 H 115 H Lactic Acid Calcium Phosphorus Magnesium AST ALT Lactate Dehydrogenase Total Bilirubin Direct Bilirubin CK-MB (CK-2) C-Reactive Protein NT-Pro-B Natriuret Pep Total Protein Albumin Arterial Blood Glucose Urine WBC (Auto) Urine Creatinine 01/11/20 01/11/20 01/12/20 18:27 23:28 00:23 WBC RBC Hgb 9.8 L Hct 31.6 L MCHC 31 L RDW 17.8 H MCV 83 L MCH 26 L Lymph % (Auto) Banks % (Auto) 8.0 H Banks # Eos # Lymph # (Auto) Banks # (Auto) Eos # (Auto) Seg Neutrophils % Seg Neuts % (Manual) Baso # (Auto) Lymphocytes % (Manual) Monocytes % (Manual) Eosinophils % (Manual) Basophils % (Manual) Seg Neutrophils # Seg Neutrophils # Man Lymphocytes # (Manual) Monocytes # (Manual) Eosinophils # (Manual) Nucleated RBC % Basophils # (Manual) PT INR APTT Heparin Anti-Xa Level ABG pH POC ABG pO2 ABG pO2 ABG HCO3 ABG O2 Saturation ABG Base Excess POC ABG pCO2 ABG Hemoglobin ABG Oxyhemoglobin ABG Chloride ABG Glucose Oxyhemoglobin Sodium Potassium Chloride Carbon Dioxide BUN Creatinine Glucose POC Glucose 118 H 122 H Lactic Acid Calcium Phosphorus Magnesium AST ALT Lactate Dehydrogenase Total Bilirubin Direct Bilirubin CK-MB (CK-2) C-Reactive Protein NT-Pro-B Natriuret Pep Total Protein Albumin Arterial Blood Glucose Urine WBC (Auto) Urine Creatinine 01/12/20 01/12/20 01/12/20 00:23 04:18 04:18 WBC RBC Hgb 9.6 L Hct 30.9 L MCHC 31 L RDW 17.3 H MCV 81 L MCH 25 L Lymph % (Auto) Banks % (Auto) Banks # Eos # Lymph # (Auto) Banks # (Auto) Eos # (Auto) Seg Neutrophils % Seg Neuts % (Manual) Baso # (Auto) Lymphocytes % (Manual) Monocytes % (Manual) Eosinophils % (Manual) Basophils % (Manual) Seg Neutrophils # Seg Neutrophils # Man Lymphocytes # (Manual) Monocytes # (Manual) Eosinophils # (Manual) Nucleated RBC % Basophils # (Manual) PT INR APTT Heparin Anti-Xa Level ABG pH POC ABG pO2 ABG pO2 ABG HCO3 ABG O2 Saturation ABG Base Excess POC ABG pCO2 ABG Hemoglobin ABG Oxyhemoglobin ABG Chloride ABG Glucose Oxyhemoglobin Sodium Potassium Chloride Carbon Dioxide BUN Creatinine 0.7 L 0.7 L Glucose 111 H 108 H POC Glucose Lactic Acid Calcium Phosphorus Magnesium AST ALT Lactate Dehydrogenase Total Bilirubin Direct Bilirubin CK-MB (CK-2) C-Reactive Protein NT-Pro-B Natriuret Pep Total Protein Albumin 2.6 L Arterial Blood Glucose Urine WBC (Auto) Urine Creatinine 01/12/20 01/12/20 01/12/20 06:03 12:27 13:58 WBC RBC Hgb Hct MCHC RDW MCV MCH Lymph % (Auto) Banks % (Auto) Banks # Eos # Lymph # (Auto) Banks # (Auto) Eos # (Auto) Seg Neutrophils % Seg Neuts % (Manual) Baso # (Auto) Lymphocytes % (Manual) Monocytes % (Manual) Eosinophils % (Manual) Basophils % (Manual) Seg Neutrophils # Seg Neutrophils # Man Lymphocytes # (Manual) Monocytes # (Manual) Eosinophils # (Manual) Nucleated RBC % Basophils # (Manual) PT INR APTT Heparin Anti-Xa Level ABG pH 7.453 H POC ABG pO2 76.6 L ABG pO2 ABG HCO3 ABG O2 Saturation ABG Base Excess POC ABG pCO2 ABG Hemoglobin 10.3 L ABG Oxyhemoglobin ABG Chloride ABG Glucose 99 H Oxyhemoglobin Sodium Potassium Chloride Carbon Dioxide BUN Creatinine Glucose POC Glucose 128 H 121 H Lactic Acid Calcium Phosphorus Magnesium AST ALT Lactate Dehydrogenase Total Bilirubin Direct Bilirubin CK-MB (CK-2) C-Reactive Protein NT-Pro-B Natriuret Pep Total Protein Albumin Arterial Blood Glucose 99 H Urine WBC (Auto) Urine Creatinine 01/12/20 01/13/20 01/13/20 18:24 12:01 17:46 WBC RBC Hgb Hct MCHC RDW MCV MCH Lymph % (Auto) Banks % (Auto) Banks # Eos # Lymph # (Auto) Banks # (Auto) Eos # (Auto) Seg Neutrophils % Seg Neuts % (Manual) Baso # (Auto) Lymphocytes % (Manual) Monocytes % (Manual) Eosinophils % (Manual) Basophils % (Manual) Seg Neutrophils # Seg Neutrophils # Man Lymphocytes # (Manual) Monocytes # (Manual) Eosinophils # (Manual) Nucleated RBC % Basophils # (Manual) PT INR APTT Heparin Anti-Xa Level ABG pH POC ABG pO2 ABG pO2 ABG HCO3 ABG O2 Saturation ABG Base Excess POC ABG pCO2 ABG Hemoglobin ABG Oxyhemoglobin ABG Chloride ABG Glucose Oxyhemoglobin Sodium Potassium Chloride Carbon Dioxide BUN Creatinine Glucose POC Glucose 119 H 107 H 124 H Lactic Acid Calcium Phosphorus Magnesium AST ALT Lactate Dehydrogenase Total Bilirubin Direct Bilirubin CK-MB (CK-2) C-Reactive Protein NT-Pro-B Natriuret Pep Total Protein Albumin Arterial Blood Glucose Urine WBC (Auto) Urine Creatinine 01/13/20 01/14/20 01/14/20 20:40 00:10 05:33 WBC RBC Hgb Hct MCHC RDW MCV MCH Lymph % (Auto) Banks % (Auto) Banks # Eos # Lymph # (Auto) Banks # (Auto) Eos # (Auto) Seg Neutrophils % Seg Neuts % (Manual) Baso # (Auto) Lymphocytes % (Manual) Monocytes % (Manual) Eosinophils % (Manual) Basophils % (Manual) Seg Neutrophils # Seg Neutrophils # Man Lymphocytes # (Manual) Monocytes # (Manual) Eosinophils # (Manual) Nucleated RBC % Basophils # (Manual) PT INR APTT Heparin Anti-Xa Level ABG pH POC ABG pO2 ABG pO2 65.3 L ABG HCO3 31.8 H ABG O2 Saturation 93.5 L ABG Base Excess 6.7 H POC ABG pCO2 ABG Hemoglobin 13.3 L ABG Oxyhemoglobin ABG Chloride ABG Glucose Oxyhemoglobin 90.9 L Sodium Potassium Chloride Carbon Dioxide BUN Creatinine Glucose POC Glucose 111 H 111 H Lactic Acid Calcium Phosphorus Magnesium AST ALT Lactate Dehydrogenase Total Bilirubin Direct Bilirubin CK-MB (CK-2) C-Reactive Protein NT-Pro-B Natriuret Pep Total Protein Albumin Arterial Blood Glucose Urine WBC (Auto) Urine Creatinine 01/14/20 01/14/20 01/14/20 12:10 16:14 16:14 WBC RBC Hgb 10.6 L Hct 34.2 L MCHC 31 L RDW 18.3 H MCV 83 L MCH 26 L Lymph % (Auto) Banks % (Auto) 7.4 H Banks # Eos # Lymph # (Auto) Banks # (Auto) Eos # (Auto) Seg Neutrophils % 71.9 H Seg Neuts % (Manual) Baso # (Auto) Lymphocytes % (Manual) Monocytes % (Manual) Eosinophils % (Manual) Basophils % (Manual) Seg Neutrophils # Seg Neutrophils # Man Lymphocytes # (Manual) Monocytes # (Manual) Eosinophils # (Manual) Nucleated RBC % Basophils # (Manual) PT INR APTT Heparin Anti-Xa Level ABG pH POC ABG pO2 ABG pO2 ABG HCO3 ABG O2 Saturation ABG Base Excess POC ABG pCO2 ABG Hemoglobin ABG Oxyhemoglobin ABG Chloride ABG Glucose Oxyhemoglobin Sodium Potassium Chloride Carbon Dioxide 31 H BUN Creatinine 0.6 L Glucose 131 H POC Glucose 139 H Lactic Acid Calcium Phosphorus Magnesium AST ALT Lactate Dehydrogenase Total Bilirubin Direct Bilirubin CK-MB (CK-2) C-Reactive Protein NT-Pro-B Natriuret Pep Total Protein Albumin Arterial Blood Glucose Urine WBC (Auto) Urine Creatinine 01/14/20 01/15/20 01/15/20 18:05 00:52 05:35 WBC RBC Hgb Hct MCHC RDW MCV MCH Lymph % (Auto) Banks % (Auto) Banks # Eos # Lymph # (Auto) Banks # (Auto) Eos # (Auto) Seg Neutrophils % Seg Neuts % (Manual) Baso # (Auto) Lymphocytes % (Manual) Monocytes % (Manual) Eosinophils % (Manual) Basophils % (Manual) Seg Neutrophils # Seg Neutrophils # Man Lymphocytes # (Manual) Monocytes # (Manual) Eosinophils # (Manual) Nucleated RBC % Basophils # (Manual) PT INR APTT Heparin Anti-Xa Level ABG pH POC ABG pO2 ABG pO2 ABG HCO3 ABG O2 Saturation ABG Base Excess POC ABG pCO2 ABG Hemoglobin ABG Oxyhemoglobin ABG Chloride ABG Glucose Oxyhemoglobin Sodium Potassium Chloride Carbon Dioxide BUN Creatinine Glucose POC Glucose 147 H 140 H 159 H Lactic Acid Calcium Phosphorus Magnesium AST ALT Lactate Dehydrogenase Total Bilirubin Direct Bilirubin CK-MB (CK-2) C-Reactive Protein NT-Pro-B Natriuret Pep Total Protein Albumin Arterial Blood Glucose Urine WBC (Auto) Urine Creatinine 01/15/20 01/15/20 01/16/20 12:52 17:43 00:32 WBC RBC Hgb Hct MCHC RDW MCV MCH Lymph % (Auto) Banks % (Auto) Banks # Eos # Lymph # (Auto) Banks # (Auto) Eos # (Auto) Seg Neutrophils % Seg Neuts % (Manual) Baso # (Auto) Lymphocytes % (Manual) Monocytes % (Manual) Eosinophils % (Manual) Basophils % (Manual) Seg Neutrophils # Seg Neutrophils # Man Lymphocytes # (Manual) Monocytes # (Manual) Eosinophils # (Manual) Nucleated RBC % Basophils # (Manual) PT INR APTT Heparin Anti-Xa Level ABG pH POC ABG pO2 ABG pO2 ABG HCO3 ABG O2 Saturation ABG Base Excess POC ABG pCO2 ABG Hemoglobin ABG Oxyhemoglobin ABG Chloride ABG Glucose Oxyhemoglobin Sodium Potassium Chloride Carbon Dioxide BUN Creatinine Glucose POC Glucose 164 H 167 H 153 H Lactic Acid Calcium Phosphorus Magnesium AST ALT Lactate Dehydrogenase Total Bilirubin Direct Bilirubin CK-MB (CK-2) C-Reactive Protein NT-Pro-B Natriuret Pep Total Protein Albumin Arterial Blood Glucose Urine WBC (Auto) Urine Creatinine 01/16/20 01/16/20 01/17/20 05:46 11:48 06:38 WBC RBC Hgb Hct MCHC RDW MCV MCH Lymph % (Auto) Banks % (Auto) Banks # Eos # Lymph # (Auto) Banks # (Auto) Eos # (Auto) Seg Neutrophils % Seg Neuts % (Manual) Baso # (Auto) Lymphocytes % (Manual) Monocytes % (Manual) Eosinophils % (Manual) Basophils % (Manual) Seg Neutrophils # Seg Neutrophils # Man Lymphocytes # (Manual) Monocytes # (Manual) Eosinophils # (Manual) Nucleated RBC % Basophils # (Manual) PT INR APTT Heparin Anti-Xa Level ABG pH POC ABG pO2 ABG pO2 ABG HCO3 ABG O2 Saturation ABG Base Excess POC ABG pCO2 ABG Hemoglobin ABG Oxyhemoglobin ABG Chloride ABG Glucose Oxyhemoglobin Sodium Potassium Chloride Carbon Dioxide BUN Creatinine Glucose POC Glucose 163 H 155 H 116 H Lactic Acid Calcium Phosphorus Magnesium AST ALT Lactate Dehydrogenase Total Bilirubin Direct Bilirubin CK-MB (CK-2) C-Reactive Protein NT-Pro-B Natriuret Pep Total Protein Albumin Arterial Blood Glucose Urine WBC (Auto) Urine Creatinine 01/17/20 01/17/20 01/18/20 11:36 17:43 00:12 WBC RBC Hgb Hct MCHC RDW MCV MCH Lymph % (Auto) Banks % (Auto) Banks # Eos # Lymph # (Auto) Banks # (Auto) Eos # (Auto) Seg Neutrophils % Seg Neuts % (Manual) Baso # (Auto) Lymphocytes % (Manual) Monocytes % (Manual) Eosinophils % (Manual) Basophils % (Manual) Seg Neutrophils # Seg Neutrophils # Man Lymphocytes # (Manual) Monocytes # (Manual) Eosinophils # (Manual) Nucleated RBC % Basophils # (Manual) PT INR APTT Heparin Anti-Xa Level ABG pH POC ABG pO2 ABG pO2 ABG HCO3 ABG O2 Saturation ABG Base Excess POC ABG pCO2 ABG Hemoglobin ABG Oxyhemoglobin ABG Chloride ABG Glucose Oxyhemoglobin Sodium Potassium Chloride Carbon Dioxide BUN Creatinine Glucose POC Glucose 110 H 134 H 108 H Lactic Acid Calcium Phosphorus Magnesium AST ALT Lactate Dehydrogenase Total Bilirubin Direct Bilirubin CK-MB (CK-2) C-Reactive Protein NT-Pro-B Natriuret Pep Total Protein Albumin Arterial Blood Glucose Urine WBC (Auto) Urine Creatinine 01/18/20 01/18/20 01/18/20 05:37 06:46 06:46 WBC RBC Hgb 10.1 L Hct 32.2 L MCHC 31 L RDW 18.1 H MCV 81 L MCH 25 L Lymph % (Auto) Banks % (Auto) Banks # Eos # Lymph # (Auto) Banks # (Auto) Eos # (Auto) Seg Neutrophils % 71.9 H Seg Neuts % (Manual) Baso # (Auto) Lymphocytes % (Manual) Monocytes % (Manual) Eosinophils % (Manual) Basophils % (Manual) Seg Neutrophils # Seg Neutrophils # Man Lymphocytes # (Manual) Monocytes # (Manual) Eosinophils # (Manual) Nucleated RBC % Basophils # (Manual) PT INR APTT Heparin Anti-Xa Level ABG pH POC ABG pO2 ABG pO2 ABG HCO3 ABG O2 Saturation ABG Base Excess POC ABG pCO2 ABG Hemoglobin ABG Oxyhemoglobin ABG Chloride ABG Glucose Oxyhemoglobin Sodium Potassium Chloride Carbon Dioxide BUN Creatinine 0.7 L Glucose 155 H POC Glucose 168 H Lactic Acid Calcium Phosphorus Magnesium AST ALT Lactate Dehydrogenase Total Bilirubin Direct Bilirubin CK-MB (CK-2) C-Reactive Protein NT-Pro-B Natriuret Pep Total Protein Albumin Arterial Blood Glucose Urine WBC (Auto) Urine Creatinine 01/18/20 01/18/20 01/18/20 12:05 17:14 23:28 WBC RBC Hgb Hct MCHC RDW MCV MCH Lymph % (Auto) Banks % (Auto) Banks # Eos # Lymph # (Auto) Banks # (Auto) Eos # (Auto) Seg Neutrophils % Seg Neuts % (Manual) Baso # (Auto) Lymphocytes % (Manual) Monocytes % (Manual) Eosinophils % (Manual) Basophils % (Manual) Seg Neutrophils # Seg Neutrophils # Man Lymphocytes # (Manual) Monocytes # (Manual) Eosinophils # (Manual) Nucleated RBC % Basophils # (Manual) PT INR APTT Heparin Anti-Xa Level ABG pH POC ABG pO2 ABG pO2 ABG HCO3 ABG O2 Saturation ABG Base Excess POC ABG pCO2 ABG Hemoglobin ABG Oxyhemoglobin ABG Chloride ABG Glucose Oxyhemoglobin Sodium Potassium Chloride Carbon Dioxide BUN Creatinine Glucose POC Glucose 128 H 126 H 128 H Lactic Acid Calcium Phosphorus Magnesium AST ALT Lactate Dehydrogenase Total Bilirubin Direct Bilirubin CK-MB (CK-2) C-Reactive Protein NT-Pro-B Natriuret Pep Total Protein Albumin Arterial Blood Glucose Urine WBC (Auto) Urine Creatinine 01/19/20 01/19/20 01/19/20 05:39 12:33 17:36 WBC RBC Hgb Hct MCHC RDW MCV MCH Lymph % (Auto) Banks % (Auto) Banks # Eos # Lymph # (Auto) Banks # (Auto) Eos # (Auto) Seg Neutrophils % Seg Neuts % (Manual) Baso # (Auto) Lymphocytes % (Manual) Monocytes % (Manual) Eosinophils % (Manual) Basophils % (Manual) Seg Neutrophils # Seg Neutrophils # Man Lymphocytes # (Manual) Monocytes # (Manual) Eosinophils # (Manual) Nucleated RBC % Basophils # (Manual) PT INR APTT Heparin Anti-Xa Level ABG pH POC ABG pO2 ABG pO2 ABG HCO3 ABG O2 Saturation ABG Base Excess POC ABG pCO2 ABG Hemoglobin ABG Oxyhemoglobin ABG Chloride ABG Glucose Oxyhemoglobin Sodium Potassium Chloride Carbon Dioxide BUN Creatinine Glucose POC Glucose 164 H 171 H 152 H Lactic Acid Calcium Phosphorus Magnesium AST ALT Lactate Dehydrogenase Total Bilirubin Direct Bilirubin CK-MB (CK-2) C-Reactive Protein NT-Pro-B Natriuret Pep Total Protein Albumin Arterial Blood Glucose Urine WBC (Auto) Urine Creatinine 01/20/20 01/20/20 01/20/20 00:12 05:20 05:35 WBC RBC Hgb 9.2 L Hct 29.4 L MCHC 31 L RDW 17.9 H MCV 81 L MCH 25 L Lymph % (Auto) Banks % (Auto) Banks # Eos # Lymph # (Auto) Banks # (Auto) Eos # (Auto) Seg Neutrophils % Seg Neuts % (Manual) Baso # (Auto) Lymphocytes % (Manual) Monocytes % (Manual) Eosinophils % (Manual) Basophils % (Manual) Seg Neutrophils # Seg Neutrophils # Man Lymphocytes # (Manual) Monocytes # (Manual) Eosinophils # (Manual) Nucleated RBC % Basophils # (Manual) PT INR APTT Heparin Anti-Xa Level ABG pH POC ABG pO2 ABG pO2 ABG HCO3 ABG O2 Saturation ABG Base Excess POC ABG pCO2 ABG Hemoglobin ABG Oxyhemoglobin ABG Chloride ABG Glucose Oxyhemoglobin Sodium Potassium Chloride Carbon Dioxide BUN Creatinine Glucose POC Glucose 120 H 136 H Lactic Acid Calcium Phosphorus Magnesium AST ALT Lactate Dehydrogenase Total Bilirubin Direct Bilirubin CK-MB (CK-2) C-Reactive Protein NT-Pro-B Natriuret Pep Total Protein Albumin Arterial Blood Glucose Urine WBC (Auto) Urine Creatinine 01/20/20 01/20/20 01/20/20 05:40 11:58 14:55 WBC RBC Hgb 9.0 L Hct 28.3 L MCHC RDW MCV MCH Lymph % (Auto) Banks % (Auto) Banks # Eos # Lymph # (Auto) Banks # (Auto) Eos # (Auto) Seg Neutrophils % Seg Neuts % (Manual) Baso # (Auto) Lymphocytes % (Manual) Monocytes % (Manual) Eosinophils % (Manual) Basophils % (Manual) Seg Neutrophils # Seg Neutrophils # Man Lymphocytes # (Manual) Monocytes # (Manual) Eosinophils # (Manual) Nucleated RBC % Basophils # (Manual) PT INR APTT Heparin Anti-Xa Level ABG pH POC ABG pO2 ABG pO2 ABG HCO3 ABG O2 Saturation ABG Base Excess POC ABG pCO2 ABG Hemoglobin ABG Oxyhemoglobin ABG Chloride ABG Glucose Oxyhemoglobin Sodium Potassium Chloride Carbon Dioxide 32 H BUN 22 H Creatinine 0.7 L Glucose 128 H POC Glucose 152 H Lactic Acid Calcium Phosphorus Magnesium AST ALT Lactate Dehydrogenase Total Bilirubin Direct Bilirubin CK-MB (CK-2) C-Reactive Protein NT-Pro-B Natriuret Pep Total Protein Albumin Arterial Blood Glucose Urine WBC (Auto) Urine Creatinine 01/20/20 01/20/20 01/20/20 14:55 18:14 21:35 WBC RBC Hgb Hct MCHC RDW MCV MCH Lymph % (Auto) Banks % (Auto) Banks # Eos # Lymph # (Auto) Banks # (Auto) Eos # (Auto) Seg Neutrophils % Seg Neuts % (Manual) Baso # (Auto) Lymphocytes % (Manual) Monocytes % (Manual) Eosinophils % (Manual) Basophils % (Manual) Seg Neutrophils # Seg Neutrophils # Man Lymphocytes # (Manual) Monocytes # (Manual) Eosinophils # (Manual) Nucleated RBC % Basophils # (Manual) PT 20.4 H INR 1.72 H APTT 40.6 H Heparin Anti-Xa Level > 2.00 H ABG pH POC ABG pO2 ABG pO2 ABG HCO3 ABG O2 Saturation ABG Base Excess POC ABG pCO2 ABG Hemoglobin ABG Oxyhemoglobin ABG Chloride ABG Glucose Oxyhemoglobin Sodium Potassium Chloride Carbon Dioxide BUN Creatinine Glucose POC Glucose 150 H Lactic Acid Calcium Phosphorus Magnesium AST ALT Lactate Dehydrogenase Total Bilirubin Direct Bilirubin CK-MB (CK-2) C-Reactive Protein NT-Pro-B Natriuret Pep Total Protein Albumin Arterial Blood Glucose Urine WBC (Auto) Urine Creatinine 01/21/20 01/21/20 01/21/20 00:30 05:47 05:59 WBC RBC Hgb Hct MCHC RDW MCV MCH Lymph % (Auto) Banks % (Auto) Banks # Eos # Lymph # (Auto) Banks # (Auto) Eos # (Auto) Seg Neutrophils % Seg Neuts % (Manual) Baso # (Auto) Lymphocytes % (Manual) Monocytes % (Manual) Eosinophils % (Manual) Basophils % (Manual) Seg Neutrophils # Seg Neutrophils # Man Lymphocytes # (Manual) Monocytes # (Manual) Eosinophils # (Manual) Nucleated RBC % Basophils # (Manual) PT INR APTT Heparin Anti-Xa Level 1.93 H ABG pH POC ABG pO2 ABG pO2 ABG HCO3 ABG O2 Saturation ABG Base Excess POC ABG pCO2 ABG Hemoglobin ABG Oxyhemoglobin ABG Chloride ABG Glucose Oxyhemoglobin Sodium Potassium Chloride Carbon Dioxide BUN Creatinine Glucose POC Glucose 126 H 148 H Lactic Acid Calcium Phosphorus Magnesium AST ALT Lactate Dehydrogenase Total Bilirubin Direct Bilirubin CK-MB (CK-2) C-Reactive Protein NT-Pro-B Natriuret Pep Total Protein Albumin Arterial Blood Glucose Urine WBC (Auto) Urine Creatinine 01/21/20 01/21/20 01/21/20 12:32 18:20 23:54 WBC RBC Hgb Hct MCHC RDW MCV MCH Lymph % (Auto) Banks % (Auto) Banks # Eos # Lymph # (Auto) Banks # (Auto) Eos # (Auto) Seg Neutrophils % Seg Neuts % (Manual) Baso # (Auto) Lymphocytes % (Manual) Monocytes % (Manual) Eosinophils % (Manual) Basophils % (Manual) Seg Neutrophils # Seg Neutrophils # Man Lymphocytes # (Manual) Monocytes # (Manual) Eosinophils # (Manual) Nucleated RBC % Basophils # (Manual) PT INR APTT Heparin Anti-Xa Level 1.28 H ABG pH POC ABG pO2 ABG pO2 ABG HCO3 ABG O2 Saturation ABG Base Excess POC ABG pCO2 ABG Hemoglobin ABG Oxyhemoglobin ABG Chloride ABG Glucose Oxyhemoglobin Sodium Potassium Chloride Carbon Dioxide BUN Creatinine Glucose POC Glucose 112 H 146 H Lactic Acid Calcium Phosphorus Magnesium AST ALT Lactate Dehydrogenase Total Bilirubin Direct Bilirubin CK-MB (CK-2) C-Reactive Protein NT-Pro-B Natriuret Pep Total Protein Albumin Arterial Blood Glucose Urine WBC (Auto) Urine Creatinine 01/22/20 01/22/20 01/22/20 04:45 04:45 05:48 WBC RBC Hgb 9.3 L Hct 29.0 L MCHC RDW MCV MCH Lymph % (Auto) Banks % (Auto) Banks # Eos # Lymph # (Auto) Banks # (Auto) Eos # (Auto) Seg Neutrophils % Seg Neuts % (Manual) Baso # (Auto) Lymphocytes % (Manual) Monocytes % (Manual) Eosinophils % (Manual) Basophils % (Manual) Seg Neutrophils # Seg Neutrophils # Man Lymphocytes # (Manual) Monocytes # (Manual) Eosinophils # (Manual) Nucleated RBC % Basophils # (Manual) PT INR APTT Heparin Anti-Xa Level 1.34 H ABG pH POC ABG pO2 ABG pO2 ABG HCO3 ABG O2 Saturation ABG Base Excess POC ABG pCO2 ABG Hemoglobin ABG Oxyhemoglobin ABG Chloride ABG Glucose Oxyhemoglobin Sodium Potassium Chloride Carbon Dioxide BUN Creatinine Glucose POC Glucose 142 H Lactic Acid Calcium Phosphorus Magnesium AST ALT Lactate Dehydrogenase Total Bilirubin Direct Bilirubin CK-MB (CK-2) C-Reactive Protein NT-Pro-B Natriuret Pep Total Protein Albumin Arterial Blood Glucose Urine WBC (Auto) Urine Creatinine 01/22/20 01/22/20 01/22/20 08:09 08:22 09:58 WBC RBC Hgb Hct MCHC RDW MCV MCH Lymph % (Auto) Banks % (Auto) Banks # Eos # Lymph # (Auto) Banks # (Auto) Eos # (Auto) Seg Neutrophils % Seg Neuts % (Manual) Baso # (Auto) Lymphocytes % (Manual) Monocytes % (Manual) Eosinophils % (Manual) Basophils % (Manual) Seg Neutrophils # Seg Neutrophils # Man Lymphocytes # (Manual) Monocytes # (Manual) Eosinophils # (Manual) Nucleated RBC % Basophils # (Manual) PT 16.9 H INR 1.34 H APTT Heparin Anti-Xa Level ABG pH POC ABG pO2 ABG pO2 ABG HCO3 ABG O2 Saturation ABG Base Excess POC ABG pCO2 ABG Hemoglobin ABG Oxyhemoglobin ABG Chloride ABG Glucose Oxyhemoglobin Sodium Potassium Chloride 97.8 L Carbon Dioxide BUN 29 H Creatinine Glucose 128 H POC Glucose 131 H Lactic Acid Calcium Phosphorus Magnesium AST ALT Lactate Dehydrogenase Total Bilirubin Direct Bilirubin CK-MB (CK-2) C-Reactive Protein NT-Pro-B Natriuret Pep Total Protein Albumin Arterial Blood Glucose Urine WBC (Auto) Urine Creatinine 01/22/20 01/22/20 01/22/20 12:44 16:13 18:18 WBC RBC Hgb Hct MCHC RDW MCV MCH Lymph % (Auto) Banks % (Auto) Banks # Eos # Lymph # (Auto) Banks # (Auto) Eos # (Auto) Seg Neutrophils % Seg Neuts % (Manual) Baso # (Auto) Lymphocytes % (Manual) Monocytes % (Manual) Eosinophils % (Manual) Basophils % (Manual) Seg Neutrophils # Seg Neutrophils # Man Lymphocytes # (Manual) Monocytes # (Manual) Eosinophils # (Manual) Nucleated RBC % Basophils # (Manual) PT INR APTT Heparin Anti-Xa Level ABG pH POC ABG pO2 ABG pO2 ABG HCO3 ABG O2 Saturation ABG Base Excess POC ABG pCO2 ABG Hemoglobin ABG Oxyhemoglobin ABG Chloride ABG Glucose Oxyhemoglobin Sodium Potassium Chloride Carbon Dioxide BUN Creatinine Glucose POC Glucose 156 H 133 H 155 H Lactic Acid Calcium Phosphorus Magnesium AST ALT Lactate Dehydrogenase Total Bilirubin Direct Bilirubin CK-MB (CK-2) C-Reactive Protein NT-Pro-B Natriuret Pep Total Protein Albumin Arterial Blood Glucose Urine WBC (Auto) Urine Creatinine 01/22/20 01/23/20 01/23/20 23:22 05:37 12:59 WBC RBC Hgb Hct MCHC RDW MCV MCH Lymph % (Auto) Banks % (Auto) Banks # Eos # Lymph # (Auto) Banks # (Auto) Eos # (Auto) Seg Neutrophils % Seg Neuts % (Manual) Baso # (Auto) Lymphocytes % (Manual) Monocytes % (Manual) Eosinophils % (Manual) Basophils % (Manual) Seg Neutrophils # Seg Neutrophils # Man Lymphocytes # (Manual) Monocytes # (Manual) Eosinophils # (Manual) Nucleated RBC % Basophils # (Manual) PT INR APTT Heparin Anti-Xa Level ABG pH POC ABG pO2 ABG pO2 ABG HCO3 ABG O2 Saturation ABG Base Excess POC ABG pCO2 ABG Hemoglobin ABG Oxyhemoglobin ABG Chloride ABG Glucose Oxyhemoglobin Sodium Potassium Chloride Carbon Dioxide BUN Creatinine Glucose POC Glucose 148 H 163 H 175 H Lactic Acid Calcium Phosphorus Magnesium AST ALT Lactate Dehydrogenase Total Bilirubin Direct Bilirubin CK-MB (CK-2) C-Reactive Protein NT-Pro-B Natriuret Pep Total Protein Albumin Arterial Blood Glucose Urine WBC (Auto) Urine Creatinine 01/23/20 01/23/20 01/24/20 17:28 23:56 04:30 WBC RBC 3.46 L Hgb 8.8 L Hct 27.8 L MCHC RDW 18.2 H MCV 81 L MCH 25 L Lymph % (Auto) Banks % (Auto) 7.8 H Banks # Eos # Lymph # (Auto) Banks # (Auto) Eos # (Auto) Seg Neutrophils % Seg Neuts % (Manual) Baso # (Auto) Lymphocytes % (Manual) Monocytes % (Manual) Eosinophils % (Manual) Basophils % (Manual) Seg Neutrophils # Seg Neutrophils # Man Lymphocytes # (Manual) Monocytes # (Manual) Eosinophils # (Manual) Nucleated RBC % Basophils # (Manual) PT INR APTT Heparin Anti-Xa Level ABG pH POC ABG pO2 ABG pO2 ABG HCO3 ABG O2 Saturation ABG Base Excess POC ABG pCO2 ABG Hemoglobin ABG Oxyhemoglobin ABG Chloride ABG Glucose Oxyhemoglobin Sodium Potassium Chloride Carbon Dioxide BUN Creatinine Glucose POC Glucose 165 H 177 H Lactic Acid Calcium Phosphorus Magnesium AST ALT Lactate Dehydrogenase Total Bilirubin Direct Bilirubin CK-MB (CK-2) C-Reactive Protein NT-Pro-B Natriuret Pep Total Protein Albumin Arterial Blood Glucose Urine WBC (Auto) Urine Creatinine 01/24/20 01/24/20 01/24/20 04:30 07:18 12:06 WBC RBC Hgb Hct MCHC RDW MCV MCH Lymph % (Auto) Banks % (Auto) Banks # Eos # Lymph # (Auto) Banks # (Auto) Eos # (Auto) Seg Neutrophils % Seg Neuts % (Manual) Baso # (Auto) Lymphocytes % (Manual) Monocytes % (Manual) Eosinophils % (Manual) Basophils % (Manual) Seg Neutrophils # Seg Neutrophils # Man Lymphocytes # (Manual) Monocytes # (Manual) Eosinophils # (Manual) Nucleated RBC % Basophils # (Manual) PT INR APTT Heparin Anti-Xa Level ABG pH POC ABG pO2 ABG pO2 ABG HCO3 ABG O2 Saturation ABG Base Excess POC ABG pCO2 ABG Hemoglobin ABG Oxyhemoglobin ABG Chloride ABG Glucose Oxyhemoglobin Sodium Potassium Chloride 97.9 L Carbon Dioxide BUN 31 H Creatinine Glucose 146 H POC Glucose 151 H 133 H Lactic Acid Calcium Phosphorus Magnesium AST ALT Lactate Dehydrogenase Total Bilirubin Direct Bilirubin CK-MB (CK-2) C-Reactive Protein NT-Pro-B Natriuret Pep Total Protein Albumin Arterial Blood Glucose Urine WBC (Auto) Urine Creatinine 01/24/20 01/25/20 01/25/20 17:36 00:08 04:25 WBC RBC 3.50 L Hgb 8.7 L Hct 27.9 L MCHC 31 L RDW 18.2 H MCV 80 L MCH 25 L Lymph % (Auto) Banks % (Auto) 8.5 H Banks # Eos # Lymph # (Auto) Banks # (Auto) Eos # (Auto) Seg Neutrophils % Seg Neuts % (Manual) Baso # (Auto) Lymphocytes % (Manual) Monocytes % (Manual) Eosinophils % (Manual) Basophils % (Manual) Seg Neutrophils # Seg Neutrophils # Man Lymphocytes # (Manual) Monocytes # (Manual) Eosinophils # (Manual) Nucleated RBC % Basophils # (Manual) PT INR APTT Heparin Anti-Xa Level ABG pH POC ABG pO2 ABG pO2 ABG HCO3 ABG O2 Saturation ABG Base Excess POC ABG pCO2 ABG Hemoglobin ABG Oxyhemoglobin ABG Chloride ABG Glucose Oxyhemoglobin Sodium Potassium Chloride Carbon Dioxide BUN Creatinine Glucose POC Glucose 133 H 129 H Lactic Acid Calcium Phosphorus Magnesium AST ALT Lactate Dehydrogenase Total Bilirubin Direct Bilirubin CK-MB (CK-2) C-Reactive Protein NT-Pro-B Natriuret Pep Total Protein Albumin Arterial Blood Glucose Urine WBC (Auto) Urine Creatinine 01/25/20 01/25/20 01/25/20 04:25 05:38 11:52 WBC RBC Hgb Hct MCHC RDW MCV MCH Lymph % (Auto) Banks % (Auto) Banks # Eos # Lymph # (Auto) Banks # (Auto) Eos # (Auto) Seg Neutrophils % Seg Neuts % (Manual) Baso # (Auto) Lymphocytes % (Manual) Monocytes % (Manual) Eosinophils % (Manual) Basophils % (Manual) Seg Neutrophils # Seg Neutrophils # Man Lymphocytes # (Manual) Monocytes # (Manual) Eosinophils # (Manual) Nucleated RBC % Basophils # (Manual) PT INR APTT Heparin Anti-Xa Level ABG pH POC ABG pO2 ABG pO2 ABG HCO3 ABG O2 Saturation ABG Base Excess POC ABG pCO2 ABG Hemoglobin ABG Oxyhemoglobin ABG Chloride ABG Glucose Oxyhemoglobin Sodium Potassium Chloride Carbon Dioxide BUN 30 H Creatinine Glucose 134 H POC Glucose 129 H 134 H Lactic Acid Calcium Phosphorus Magnesium AST ALT Lactate Dehydrogenase Total Bilirubin Direct Bilirubin CK-MB (CK-2) C-Reactive Protein NT-Pro-B Natriuret Pep Total Protein Albumin Arterial Blood Glucose Urine WBC (Auto) Urine Creatinine 01/25/20 01/25/20 01/26/20 17:13 21:02 00:59 WBC RBC Hgb Hct MCHC RDW MCV MCH Lymph % (Auto) Banks % (Auto) Banks # Eos # Lymph # (Auto) Banks # (Auto) Eos # (Auto) Seg Neutrophils % Seg Neuts % (Manual) Baso # (Auto) Lymphocytes % (Manual) Monocytes % (Manual) Eosinophils % (Manual) Basophils % (Manual) Seg Neutrophils # Seg Neutrophils # Man Lymphocytes # (Manual) Monocytes # (Manual) Eosinophils # (Manual) Nucleated RBC % Basophils # (Manual) PT INR APTT Heparin Anti-Xa Level ABG pH POC ABG pO2 ABG pO2 57.5 L ABG HCO3 31.7 H ABG O2 Saturation 90.3 L ABG Base Excess 6.6 H POC ABG pCO2 ABG Hemoglobin 13.0 L ABG Oxyhemoglobin ABG Chloride ABG Glucose Oxyhemoglobin 87.5 L Sodium Potassium Chloride Carbon Dioxide BUN Creatinine Glucose POC Glucose 124 H 196 H Lactic Acid Calcium Phosphorus Magnesium AST ALT Lactate Dehydrogenase Total Bilirubin Direct Bilirubin CK-MB (CK-2) C-Reactive Protein NT-Pro-B Natriuret Pep Total Protein Albumin Arterial Blood Glucose Urine WBC (Auto) Urine Creatinine 01/26/20 01/26/20 01/26/20 03:20 05:46 12:46 WBC RBC Hgb 9.2 L Hct 29.4 L MCHC RDW MCV MCH Lymph % (Auto) Banks % (Auto) Banks # Eos # Lymph # (Auto) Banks # (Auto) Eos # (Auto) Seg Neutrophils % Seg Neuts % (Manual) Baso # (Auto) Lymphocytes % (Manual) Monocytes % (Manual) Eosinophils % (Manual) Basophils % (Manual) Seg Neutrophils # Seg Neutrophils # Man Lymphocytes # (Manual) Monocytes # (Manual) Eosinophils # (Manual) Nucleated RBC % Basophils # (Manual) PT INR APTT Heparin Anti-Xa Level ABG pH POC ABG pO2 ABG pO2 ABG HCO3 ABG O2 Saturation ABG Base Excess POC ABG pCO2 ABG Hemoglobin ABG Oxyhemoglobin ABG Chloride ABG Glucose Oxyhemoglobin Sodium Potassium Chloride Carbon Dioxide BUN Creatinine Glucose POC Glucose 141 H 122 H Lactic Acid Calcium Phosphorus Magnesium AST ALT Lactate Dehydrogenase Total Bilirubin Direct Bilirubin CK-MB (CK-2) C-Reactive Protein NT-Pro-B Natriuret Pep Total Protein Albumin Arterial Blood Glucose Urine WBC (Auto) Urine Creatinine 01/26/20 01/26/20 01/27/20 18:03 23:55 04:47 WBC RBC Hgb Hct MCHC RDW MCV MCH Lymph % (Auto) Banks % (Auto) Banks # Eos # Lymph # (Auto) Banks # (Auto) Eos # (Auto) Seg Neutrophils % Seg Neuts % (Manual) Baso # (Auto) Lymphocytes % (Manual) Monocytes % (Manual) Eosinophils % (Manual) Basophils % (Manual) Seg Neutrophils # Seg Neutrophils # Man Lymphocytes # (Manual) Monocytes # (Manual) Eosinophils # (Manual) Nucleated RBC % Basophils # (Manual) PT INR APTT Heparin Anti-Xa Level ABG pH POC ABG pO2 ABG pO2 ABG HCO3 ABG O2 Saturation ABG Base Excess POC ABG pCO2 ABG Hemoglobin ABG Oxyhemoglobin ABG Chloride ABG Glucose Oxyhemoglobin Sodium Potassium Chloride Carbon Dioxide BUN 30 H Creatinine 0.7 L Glucose 135 H POC Glucose 142 H 159 H Lactic Acid Calcium Phosphorus Magnesium AST ALT Lactate Dehydrogenase Total Bilirubin Direct Bilirubin CK-MB (CK-2) C-Reactive Protein NT-Pro-B Natriuret Pep Total Protein Albumin Arterial Blood Glucose Urine WBC (Auto) Urine Creatinine 01/27/20 01/27/20 01/27/20 05:43 12:06 17:16 WBC RBC Hgb Hct MCHC RDW MCV MCH Lymph % (Auto) Banks % (Auto) Banks # Eos # Lymph # (Auto) Banks # (Auto) Eos # (Auto) Seg Neutrophils % Seg Neuts % (Manual) Baso # (Auto) Lymphocytes % (Manual) Monocytes % (Manual) Eosinophils % (Manual) Basophils % (Manual) Seg Neutrophils # Seg Neutrophils # Man Lymphocytes # (Manual) Monocytes # (Manual) Eosinophils # (Manual) Nucleated RBC % Basophils # (Manual) PT INR APTT Heparin Anti-Xa Level ABG pH POC ABG pO2 ABG pO2 ABG HCO3 ABG O2 Saturation ABG Base Excess POC ABG pCO2 ABG Hemoglobin ABG Oxyhemoglobin ABG Chloride ABG Glucose Oxyhemoglobin Sodium Potassium Chloride Carbon Dioxide BUN Creatinine Glucose POC Glucose 143 H 142 H 128 H Lactic Acid Calcium Phosphorus Magnesium AST ALT Lactate Dehydrogenase Total Bilirubin Direct Bilirubin CK-MB (CK-2) C-Reactive Protein NT-Pro-B Natriuret Pep Total Protein Albumin Arterial Blood Glucose Urine WBC (Auto) Urine Creatinine 01/27/20 01/28/20 01/28/20 23:55 04:37 05:55 WBC RBC Hgb 9.4 L Hct 29.9 L MCHC RDW MCV MCH Lymph % (Auto) Banks % (Auto) Banks # Eos # Lymph # (Auto) Banks # (Auto) Eos # (Auto) Seg Neutrophils % Seg Neuts % (Manual) Baso # (Auto) Lymphocytes % (Manual) Monocytes % (Manual) Eosinophils % (Manual) Basophils % (Manual) Seg Neutrophils # Seg Neutrophils # Man Lymphocytes # (Manual) Monocytes # (Manual) Eosinophils # (Manual) Nucleated RBC % Basophils # (Manual) PT INR APTT Heparin Anti-Xa Level ABG pH POC ABG pO2 ABG pO2 ABG HCO3 ABG O2 Saturation ABG Base Excess POC ABG pCO2 ABG Hemoglobin ABG Oxyhemoglobin ABG Chloride ABG Glucose Oxyhemoglobin Sodium Potassium Chloride Carbon Dioxide BUN Creatinine Glucose POC Glucose 166 H 169 H Lactic Acid Calcium Phosphorus Magnesium AST ALT Lactate Dehydrogenase Total Bilirubin Direct Bilirubin CK-MB (CK-2) C-Reactive Protein NT-Pro-B Natriuret Pep Total Protein Albumin Arterial Blood Glucose Urine WBC (Auto) Urine Creatinine 01/28/20 01/28/20 01/28/20 11:58 17:26 23:46 WBC RBC Hgb Hct MCHC RDW MCV MCH Lymph % (Auto) Banks % (Auto) Banks # Eos # Lymph # (Auto) Banks # (Auto) Eos # (Auto) Seg Neutrophils % Seg Neuts % (Manual) Baso # (Auto) Lymphocytes % (Manual) Monocytes % (Manual) Eosinophils % (Manual) Basophils % (Manual) Seg Neutrophils # Seg Neutrophils # Man Lymphocytes # (Manual) Monocytes # (Manual) Eosinophils # (Manual) Nucleated RBC % Basophils # (Manual) PT INR APTT Heparin Anti-Xa Level ABG pH POC ABG pO2 ABG pO2 ABG HCO3 ABG O2 Saturation ABG Base Excess POC ABG pCO2 ABG Hemoglobin ABG Oxyhemoglobin ABG Chloride ABG Glucose Oxyhemoglobin Sodium Potassium Chloride Carbon Dioxide BUN Creatinine Glucose POC Glucose 130 H 126 H 150 H Lactic Acid Calcium Phosphorus Magnesium AST ALT Lactate Dehydrogenase Total Bilirubin Direct Bilirubin CK-MB (CK-2) C-Reactive Protein NT-Pro-B Natriuret Pep Total Protein Albumin Arterial Blood Glucose Urine WBC (Auto) Urine Creatinine 01/29/20 01/29/20 01/29/20 04:55 06:00 12:28 WBC RBC Hgb Hct MCHC RDW MCV MCH Lymph % (Auto) Banks % (Auto) Banks # Eos # Lymph # (Auto) Banks # (Auto) Eos # (Auto) Seg Neutrophils % Seg Neuts % (Manual) Baso # (Auto) Lymphocytes % (Manual) Monocytes % (Manual) Eosinophils % (Manual) Basophils % (Manual) Seg Neutrophils # Seg Neutrophils # Man Lymphocytes # (Manual) Monocytes # (Manual) Eosinophils # (Manual) Nucleated RBC % Basophils # (Manual) PT INR APTT Heparin Anti-Xa Level ABG pH POC ABG pO2 ABG pO2 ABG HCO3 ABG O2 Saturation ABG Base Excess POC ABG pCO2 ABG Hemoglobin ABG Oxyhemoglobin ABG Chloride ABG Glucose Oxyhemoglobin Sodium Potassium Chloride Carbon Dioxide 34 H BUN Creatinine 0.6 L Glucose 152 H POC Glucose 157 H 156 H Lactic Acid Calcium Phosphorus Magnesium AST ALT Lactate Dehydrogenase Total Bilirubin Direct Bilirubin CK-MB (CK-2) C-Reactive Protein NT-Pro-B Natriuret Pep Total Protein Albumin Arterial Blood Glucose Urine WBC (Auto) Urine Creatinine 01/29/20 01/30/20 01/30/20 19:06 00:29 05:39 WBC RBC Hgb Hct MCHC RDW MCV MCH Lymph % (Auto) Banks % (Auto) Banks # Eos # Lymph # (Auto) Banks # (Auto) Eos # (Auto) Seg Neutrophils % Seg Neuts % (Manual) Baso # (Auto) Lymphocytes % (Manual) Monocytes % (Manual) Eosinophils % (Manual) Basophils % (Manual) Seg Neutrophils # Seg Neutrophils # Man Lymphocytes # (Manual) Monocytes # (Manual) Eosinophils # (Manual) Nucleated RBC % Basophils # (Manual) PT INR APTT Heparin Anti-Xa Level ABG pH POC ABG pO2 ABG pO2 ABG HCO3 ABG O2 Saturation ABG Base Excess POC ABG pCO2 ABG Hemoglobin ABG Oxyhemoglobin ABG Chloride ABG Glucose Oxyhemoglobin Sodium Potassium Chloride Carbon Dioxide BUN Creatinine Glucose POC Glucose 152 H 132 H 159 H Lactic Acid Calcium Phosphorus Magnesium AST ALT Lactate Dehydrogenase Total Bilirubin Direct Bilirubin CK-MB (CK-2) C-Reactive Protein NT-Pro-B Natriuret Pep Total Protein Albumin Arterial Blood Glucose Urine WBC (Auto) Urine Creatinine 01/30/20 01/30/20 01/30/20 12:27 17:42 23:28 WBC RBC Hgb Hct MCHC RDW MCV MCH Lymph % (Auto) Banks % (Auto) Banks # Eos # Lymph # (Auto) Banks # (Auto) Eos # (Auto) Seg Neutrophils % Seg Neuts % (Manual) Baso # (Auto) Lymphocytes % (Manual) Monocytes % (Manual) Eosinophils % (Manual) Basophils % (Manual) Seg Neutrophils # Seg Neutrophils # Man Lymphocytes # (Manual) Monocytes # (Manual) Eosinophils # (Manual) Nucleated RBC % Basophils # (Manual) PT INR APTT Heparin Anti-Xa Level ABG pH POC ABG pO2 ABG pO2 ABG HCO3 ABG O2 Saturation ABG Base Excess POC ABG pCO2 ABG Hemoglobin ABG Oxyhemoglobin ABG Chloride ABG Glucose Oxyhemoglobin Sodium Potassium Chloride Carbon Dioxide BUN Creatinine Glucose POC Glucose 151 H 144 H 164 H Lactic Acid Calcium Phosphorus Magnesium AST ALT Lactate Dehydrogenase Total Bilirubin Direct Bilirubin CK-MB (CK-2) C-Reactive Protein NT-Pro-B Natriuret Pep Total Protein Albumin Arterial Blood Glucose Urine WBC (Auto) Urine Creatinine 01/31/20 01/31/20 01/31/20 05:51 11:51 18:06 WBC RBC Hgb Hct MCHC RDW MCV MCH Lymph % (Auto) Banks % (Auto) Banks # Eos # Lymph # (Auto) Banks # (Auto) Eos # (Auto) Seg Neutrophils % Seg Neuts % (Manual) Baso # (Auto) Lymphocytes % (Manual) Monocytes % (Manual) Eosinophils % (Manual) Basophils % (Manual) Seg Neutrophils # Seg Neutrophils # Man Lymphocytes # (Manual) Monocytes # (Manual) Eosinophils # (Manual) Nucleated RBC % Basophils # (Manual) PT INR APTT Heparin Anti-Xa Level ABG pH POC ABG pO2 ABG pO2 ABG HCO3 ABG O2 Saturation ABG Base Excess POC ABG pCO2 ABG Hemoglobin ABG Oxyhemoglobin ABG Chloride ABG Glucose Oxyhemoglobin Sodium Potassium Chloride Carbon Dioxide BUN Creatinine Glucose POC Glucose 131 H 167 H 210 H Lactic Acid Calcium Phosphorus Magnesium AST ALT Lactate Dehydrogenase Total Bilirubin Direct Bilirubin CK-MB (CK-2) C-Reactive Protein NT-Pro-B Natriuret Pep Total Protein Albumin Arterial Blood Glucose Urine WBC (Auto) Urine Creatinine 01/31/20 01/31/20 02/01/20 19:24 Unknown 00:34 WBC RBC Hgb Hct MCHC RDW MCV MCH Lymph % (Auto) Banks % (Auto) Banks # Eos # Lymph # (Auto) Banks # (Auto) Eos # (Auto) Seg Neutrophils % Seg Neuts % (Manual) Baso # (Auto) Lymphocytes % (Manual) Monocytes % (Manual) Eosinophils % (Manual) Basophils % (Manual) Seg Neutrophils # Seg Neutrophils # Man Lymphocytes # (Manual) Monocytes # (Manual) Eosinophils # (Manual) Nucleated RBC % Basophils # (Manual) PT INR APTT Heparin Anti-Xa Level ABG pH POC ABG pO2 ABG pO2 ABG HCO3 ABG O2 Saturation ABG Base Excess POC ABG pCO2 ABG Hemoglobin ABG Oxyhemoglobin ABG Chloride ABG Glucose Oxyhemoglobin Sodium Potassium Chloride 95.3 L Carbon Dioxide 33 H BUN 36 H Creatinine Glucose 187 H POC Glucose 116 H Lactic Acid Calcium Phosphorus Magnesium AST ALT Lactate Dehydrogenase Total Bilirubin Direct Bilirubin CK-MB (CK-2) C-Reactive Protein NT-Pro-B Natriuret Pep Total Protein Albumin Arterial Blood Glucose Urine WBC (Auto) Urine Creatinine 57.4 H 02/01/20 02/01/20 02/01/20 05:24 10:40 12:29 WBC RBC Hgb Hct MCHC RDW MCV MCH Lymph % (Auto) Banks % (Auto) Banks # Eos # Lymph # (Auto) Banks # (Auto) Eos # (Auto) Seg Neutrophils % Seg Neuts % (Manual) Baso # (Auto) Lymphocytes % (Manual) Monocytes % (Manual) Eosinophils % (Manual) Basophils % (Manual) Seg Neutrophils # Seg Neutrophils # Man Lymphocytes # (Manual) Monocytes # (Manual) Eosinophils # (Manual) Nucleated RBC % Basophils # (Manual) PT INR APTT Heparin Anti-Xa Level ABG pH POC ABG pO2 ABG pO2 ABG HCO3 ABG O2 Saturation ABG Base Excess POC ABG pCO2 ABG Hemoglobin ABG Oxyhemoglobin ABG Chloride ABG Glucose Oxyhemoglobin Sodium Potassium Chloride Carbon Dioxide BUN Creatinine Glucose POC Glucose 142 H 165 H 151 H Lactic Acid Calcium Phosphorus Magnesium AST ALT Lactate Dehydrogenase Total Bilirubin Direct Bilirubin CK-MB (CK-2) C-Reactive Protein NT-Pro-B Natriuret Pep Total Protein Albumin Arterial Blood Glucose Urine WBC (Auto) Urine Creatinine 02/01/20 02/01/20 02/02/20 17:16 23:23 06:36 WBC RBC Hgb Hct MCHC RDW MCV MCH Lymph % (Auto) Banks % (Auto) Banks # Eos # Lymph # (Auto) Banks # (Auto) Eos # (Auto) Seg Neutrophils % Seg Neuts % (Manual) Baso # (Auto) Lymphocytes % (Manual) Monocytes % (Manual) Eosinophils % (Manual) Basophils % (Manual) Seg Neutrophils # Seg Neutrophils # Man Lymphocytes # (Manual) Monocytes # (Manual) Eosinophils # (Manual) Nucleated RBC % Basophils # (Manual) PT INR APTT Heparin Anti-Xa Level ABG pH POC ABG pO2 ABG pO2 ABG HCO3 ABG O2 Saturation ABG Base Excess POC ABG pCO2 ABG Hemoglobin ABG Oxyhemoglobin ABG Chloride ABG Glucose Oxyhemoglobin Sodium Potassium Chloride Carbon Dioxide BUN Creatinine Glucose POC Glucose 137 H 145 H 181 H Lactic Acid Calcium Phosphorus Magnesium AST ALT Lactate Dehydrogenase Total Bilirubin Direct Bilirubin CK-MB (CK-2) C-Reactive Protein NT-Pro-B Natriuret Pep Total Protein Albumin Arterial Blood Glucose Urine WBC (Auto) Urine Creatinine 02/02/20 02/02/20 02/02/20 10:01 12:05 17:54 WBC RBC Hgb Hct MCHC RDW MCV MCH Lymph % (Auto) Banks % (Auto) Banks # Eos # Lymph # (Auto) Banks # (Auto) Eos # (Auto) Seg Neutrophils % Seg Neuts % (Manual) Baso # (Auto) Lymphocytes % (Manual) Monocytes % (Manual) Eosinophils % (Manual) Basophils % (Manual) Seg Neutrophils # Seg Neutrophils # Man Lymphocytes # (Manual) Monocytes # (Manual) Eosinophils # (Manual) Nucleated RBC % Basophils # (Manual) PT INR APTT Heparin Anti-Xa Level ABG pH POC ABG pO2 ABG pO2 ABG HCO3 ABG O2 Saturation ABG Base Excess POC ABG pCO2 ABG Hemoglobin ABG Oxyhemoglobin ABG Chloride ABG Glucose Oxyhemoglobin Sodium Potassium Chloride 95.3 L Carbon Dioxide BUN 44 H Creatinine Glucose 234 H POC Glucose 184 H 127 H Lactic Acid Calcium Phosphorus Magnesium AST 363 H ALT 457 H Lactate Dehydrogenase Total Bilirubin Direct Bilirubin CK-MB (CK-2) C-Reactive Protein NT-Pro-B Natriuret Pep Total Protein Albumin 3.0 L Arterial Blood Glucose Urine WBC (Auto) Urine Creatinine 02/02/20 02/03/20 02/03/20 23:47 05:32 07:04 WBC 13.0 H RBC Hgb 9.5 L Hct 30.8 L MCHC 31 L RDW 19.6 H MCV 81 L MCH 25 L Lymph % (Auto) Banks % (Auto) 9.4 H Banks # Eos # Lymph # (Auto) Banks # (Auto) 1.2 H Eos # (Auto) Seg Neutrophils % 72.3 H Seg Neuts % (Manual) Baso # (Auto) Lymphocytes % (Manual) Monocytes % (Manual) Eosinophils % (Manual) Basophils % (Manual) Seg Neutrophils # 9.4 H Seg Neutrophils # Man Lymphocytes # (Manual) Monocytes # (Manual) Eosinophils # (Manual) Nucleated RBC % Basophils # (Manual) PT INR APTT Heparin Anti-Xa Level ABG pH POC ABG pO2 ABG pO2 ABG HCO3 ABG O2 Saturation ABG Base Excess POC ABG pCO2 ABG Hemoglobin ABG Oxyhemoglobin ABG Chloride ABG Glucose Oxyhemoglobin Sodium Potassium Chloride Carbon Dioxide BUN Creatinine Glucose POC Glucose 124 H 129 H Lactic Acid Calcium Phosphorus Magnesium AST ALT Lactate Dehydrogenase Total Bilirubin Direct Bilirubin CK-MB (CK-2) C-Reactive Protein NT-Pro-B Natriuret Pep Total Protein Albumin Arterial Blood Glucose Urine WBC (Auto) Urine Creatinine 02/03/20 02/03/20 02/03/20 07:04 11:32 12:49 WBC RBC Hgb Hct MCHC RDW MCV MCH Lymph % (Auto) Banks % (Auto) Banks # Eos # Lymph # (Auto) Banks # (Auto) Eos # (Auto) Seg Neutrophils % Seg Neuts % (Manual) Baso # (Auto) Lymphocytes % (Manual) Monocytes % (Manual) Eosinophils % (Manual) Basophils % (Manual) Seg Neutrophils # Seg Neutrophils # Man Lymphocytes # (Manual) Monocytes # (Manual) Eosinophils # (Manual) Nucleated RBC % Basophils # (Manual) PT INR APTT Heparin Anti-Xa Level ABG pH POC ABG pO2 ABG pO2 ABG HCO3 ABG O2 Saturation ABG Base Excess POC ABG pCO2 ABG Hemoglobin ABG Oxyhemoglobin ABG Chloride ABG Glucose Oxyhemoglobin Sodium Potassium Chloride 97.9 L Carbon Dioxide 33 H BUN 39 H Creatinine Glucose 119 H POC Glucose 138 H Lactic Acid Calcium Phosphorus Magnesium 2.60 H AST ALT Lactate Dehydrogenase Total Bilirubin Direct Bilirubin CK-MB (CK-2) C-Reactive Protein NT-Pro-B Natriuret Pep Total Protein Albumin Arterial Blood Glucose Urine WBC (Auto) Urine Creatinine 02/03/20 02/04/20 02/04/20 18:28 16:24 16:24 WBC RBC 3.38 L Hgb 8.6 L Hct 26.9 L MCHC RDW 19.5 H MCV 80 L MCH 26 L Lymph % (Auto) Banks % (Auto) Banks # Eos # Lymph # (Auto) Banks # (Auto) Eos # (Auto) Seg Neutrophils % Seg Neuts % (Manual) Baso # (Auto) Lymphocytes % (Manual) Monocytes % (Manual) Eosinophils % (Manual) Basophils % (Manual) Seg Neutrophils # Seg Neutrophils # Man Lymphocytes # (Manual) Monocytes # (Manual) Eosinophils # (Manual) Nucleated RBC % Basophils # (Manual) PT INR APTT Heparin Anti-Xa Level ABG pH POC ABG pO2 ABG pO2 ABG HCO3 ABG O2 Saturation ABG Base Excess POC ABG pCO2 ABG Hemoglobin ABG Oxyhemoglobin ABG Chloride ABG Glucose Oxyhemoglobin Sodium Potassium 3.4 L Chloride Carbon Dioxide 31 H BUN 37 H Creatinine Glucose 70 L POC Glucose 118 H Lactic Acid Calcium Phosphorus Magnesium AST 169 H ALT 394 H Lactate Dehydrogenase Total Bilirubin 1.50 H Direct Bilirubin CK-MB (CK-2) C-Reactive Protein NT-Pro-B Natriuret Pep Total Protein Albumin 2.9 L Arterial Blood Glucose Urine WBC (Auto) Urine Creatinine 02/05/20 02/05/20 02/05/20 00:41 06:37 17:14 WBC RBC Hgb Hct MCHC RDW MCV MCH Lymph % (Auto) Banks % (Auto) Banks # Eos # Lymph # (Auto) Banks # (Auto) Eos # (Auto) Seg Neutrophils % Seg Neuts % (Manual) Baso # (Auto) Lymphocytes % (Manual) Monocytes % (Manual) Eosinophils % (Manual) Basophils % (Manual) Seg Neutrophils # Seg Neutrophils # Man Lymphocytes # (Manual) Monocytes # (Manual) Eosinophils # (Manual) Nucleated RBC % Basophils # (Manual) PT INR APTT Heparin Anti-Xa Level ABG pH POC ABG pO2 ABG pO2 ABG HCO3 ABG O2 Saturation ABG Base Excess POC ABG pCO2 ABG Hemoglobin ABG Oxyhemoglobin ABG Chloride ABG Glucose Oxyhemoglobin Sodium Potassium 3.1 L Chloride Carbon Dioxide 35 H BUN 32 H Creatinine 0.7 L Glucose POC Glucose 69 L 127 H Lactic Acid Calcium Phosphorus Magnesium AST 134 H ALT 352 H Lactate Dehydrogenase Total Bilirubin 1.60 H Direct Bilirubin CK-MB (CK-2) C-Reactive Protein NT-Pro-B Natriuret Pep Total Protein Albumin 2.9 L Arterial Blood Glucose Urine WBC (Auto) Urine Creatinine 02/05/20 02/06/20 02/06/20 23:43 05:32 08:01 WBC RBC Hgb Hct MCHC RDW MCV MCH Lymph % (Auto) Banks % (Auto) Banks # Eos # Lymph # (Auto) Banks # (Auto) Eos # (Auto) Seg Neutrophils % Seg Neuts % (Manual) Baso # (Auto) Lymphocytes % (Manual) Monocytes % (Manual) Eosinophils % (Manual) Basophils % (Manual) Seg Neutrophils # Seg Neutrophils # Man Lymphocytes # (Manual) Monocytes # (Manual) Eosinophils # (Manual) Nucleated RBC % Basophils # (Manual) PT INR APTT Heparin Anti-Xa Level ABG pH POC ABG pO2 ABG pO2 ABG HCO3 ABG O2 Saturation ABG Base Excess POC ABG pCO2 ABG Hemoglobin ABG Oxyhemoglobin ABG Chloride ABG Glucose Oxyhemoglobin Sodium Potassium Chloride Carbon Dioxide BUN 40 H Creatinine Glucose 132 H POC Glucose 129 H 131 H Lactic Acid Calcium Phosphorus Magnesium AST ALT Lactate Dehydrogenase Total Bilirubin Direct Bilirubin CK-MB (CK-2) C-Reactive Protein NT-Pro-B Natriuret Pep Total Protein Albumin Arterial Blood Glucose Urine WBC (Auto) Urine Creatinine 02/06/20 02/06/20 02/06/20 11:51 16:28 17:32 WBC RBC Hgb Hct MCHC RDW MCV MCH Lymph % (Auto) Banks % (Auto) Banks # Eos # Lymph # (Auto) Banks # (Auto) Eos # (Auto) Seg Neutrophils % Seg Neuts % (Manual) Baso # (Auto) Lymphocytes % (Manual) Monocytes % (Manual) Eosinophils % (Manual) Basophils % (Manual) Seg Neutrophils # Seg Neutrophils # Man Lymphocytes # (Manual) Monocytes # (Manual) Eosinophils # (Manual) Nucleated RBC % Basophils # (Manual) PT INR APTT Heparin Anti-Xa Level ABG pH POC ABG pO2 ABG pO2 ABG HCO3 ABG O2 Saturation ABG Base Excess POC ABG pCO2 ABG Hemoglobin ABG Oxyhemoglobin ABG Chloride ABG Glucose Oxyhemoglobin Sodium Potassium Chloride Carbon Dioxide BUN Creatinine Glucose POC Glucose 167 H 129 H Lactic Acid Calcium Phosphorus Magnesium AST 824 H ALT 948 H Lactate Dehydrogenase Total Bilirubin 1.70 H Direct Bilirubin 1.2 H CK-MB (CK-2) C-Reactive Protein NT-Pro-B Natriuret Pep Total Protein Albumin 2.9 L Arterial Blood Glucose Urine WBC (Auto) Urine Creatinine 02/07/20 02/07/20 02/07/20 00:11 04:57 04:57 WBC RBC Hgb 9.2 L Hct 29.7 L MCHC 31 L RDW 20.2 H MCV 80 L MCH 25 L Lymph % (Auto) Banks % (Auto) Banks # Eos # Lymph # (Auto) Banks # (Auto) Eos # (Auto) Seg Neutrophils % Seg Neuts % (Manual) Baso # (Auto) Lymphocytes % (Manual) Monocytes % (Manual) Eosinophils % (Manual) Basophils % (Manual) Seg Neutrophils # Seg Neutrophils # Man Lymphocytes # (Manual) Monocytes # (Manual) Eosinophils # (Manual) Nucleated RBC % Basophils # (Manual) PT INR APTT Heparin Anti-Xa Level ABG pH POC ABG pO2 ABG pO2 ABG HCO3 ABG O2 Saturation ABG Base Excess POC ABG pCO2 ABG Hemoglobin ABG Oxyhemoglobin ABG Chloride ABG Glucose Oxyhemoglobin Sodium Potassium 3.4 L D Chloride Carbon Dioxide 32 H BUN 39 H Creatinine Glucose 106 H POC Glucose 121 H Lactic Acid Calcium Phosphorus Magnesium AST ALT Lactate Dehydrogenase Total Bilirubin Direct Bilirubin CK-MB (CK-2) C-Reactive Protein NT-Pro-B Natriuret Pep Total Protein Albumin Arterial Blood Glucose Urine WBC (Auto) Urine Creatinine 02/07/20 02/07/20 02/07/20 15:03 15:03 17:11 WBC RBC Hgb Hct MCHC RDW MCV MCH Lymph % (Auto) Banks % (Auto) Banks # Eos # Lymph # (Auto) Banks # (Auto) Eos # (Auto) Seg Neutrophils % Seg Neuts % (Manual) Baso # (Auto) Lymphocytes % (Manual) Monocytes % (Manual) Eosinophils % (Manual) Basophils % (Manual) Seg Neutrophils # Seg Neutrophils # Man Lymphocytes # (Manual) Monocytes # (Manual) Eosinophils # (Manual) Nucleated RBC % Basophils # (Manual) PT 27.0 H INR 2.46 H APTT Heparin Anti-Xa Level ABG pH POC ABG pO2 ABG pO2 ABG HCO3 ABG O2 Saturation ABG Base Excess POC ABG pCO2 ABG Hemoglobin ABG Oxyhemoglobin ABG Chloride ABG Glucose Oxyhemoglobin Sodium Potassium Chloride Carbon Dioxide BUN Creatinine Glucose POC Glucose 109 H Lactic Acid Calcium Phosphorus Magnesium AST 424 H ALT 796 H Lactate Dehydrogenase Total Bilirubin 1.60 H Direct Bilirubin 1.2 H CK-MB (CK-2) C-Reactive Protein NT-Pro-B Natriuret Pep Total Protein Albumin 2.9 L Arterial Blood Glucose Urine WBC (Auto) Urine Creatinine 02/08/20 02/08/20 02/08/20 12:14 17:44 19:00 WBC RBC Hgb Hct MCHC RDW MCV MCH Lymph % (Auto) Banks % (Auto) Banks # Eos # Lymph # (Auto) Banks # (Auto) Eos # (Auto) Seg Neutrophils % Seg Neuts % (Manual) Baso # (Auto) Lymphocytes % (Manual) Monocytes % (Manual) Eosinophils % (Manual) Basophils % (Manual) Seg Neutrophils # Seg Neutrophils # Man Lymphocytes # (Manual) Monocytes # (Manual) Eosinophils # (Manual) Nucleated RBC % Basophils # (Manual) PT INR APTT Heparin Anti-Xa Level ABG pH POC ABG pO2 ABG pO2 ABG HCO3 ABG O2 Saturation ABG Base Excess POC ABG pCO2 ABG Hemoglobin ABG Oxyhemoglobin ABG Chloride ABG Glucose Oxyhemoglobin Sodium Potassium Chloride Carbon Dioxide BUN Creatinine Glucose POC Glucose 111 H 107 H Lactic Acid Calcium Phosphorus Magnesium AST 309 H ALT 650 H Lactate Dehydrogenase Total Bilirubin 1.30 H Direct Bilirubin 0.9 H CK-MB (CK-2) C-Reactive Protein NT-Pro-B Natriuret Pep Total Protein 6.2 L Albumin 2.7 L Arterial Blood Glucose Urine WBC (Auto) Urine Creatinine 02/09/20 02/09/20 02/09/20 05:41 12:28 18:07 WBC RBC Hgb Hct MCHC RDW MCV MCH Lymph % (Auto) Banks % (Auto) Banks # Eos # Lymph # (Auto) Banks # (Auto) Eos # (Auto) Seg Neutrophils % Seg Neuts % (Manual) Baso # (Auto) Lymphocytes % (Manual) Monocytes % (Manual) Eosinophils % (Manual) Basophils % (Manual) Seg Neutrophils # Seg Neutrophils # Man Lymphocytes # (Manual) Monocytes # (Manual) Eosinophils # (Manual) Nucleated RBC % Basophils # (Manual) PT INR APTT Heparin Anti-Xa Level ABG pH POC ABG pO2 ABG pO2 ABG HCO3 ABG O2 Saturation ABG Base Excess POC ABG pCO2 ABG Hemoglobin ABG Oxyhemoglobin ABG Chloride ABG Glucose Oxyhemoglobin Sodium Potassium Chloride Carbon Dioxide BUN Creatinine Glucose POC Glucose 113 H 140 H 143 H Lactic Acid Calcium Phosphorus Magnesium AST ALT Lactate Dehydrogenase Total Bilirubin Direct Bilirubin CK-MB (CK-2) C-Reactive Protein NT-Pro-B Natriuret Pep Total Protein Albumin Arterial Blood Glucose Urine WBC (Auto) Urine Creatinine 02/09/20 02/09/20 02/10/20 21:40 23:45 06:00 WBC RBC Hgb Hct MCHC RDW MCV MCH Lymph % (Auto) Banks % (Auto) Banks # Eos # Lymph # (Auto) Banks # (Auto) Eos # (Auto) Seg Neutrophils % Seg Neuts % (Manual) Baso # (Auto) Lymphocytes % (Manual) Monocytes % (Manual) Eosinophils % (Manual) Basophils % (Manual) Seg Neutrophils # Seg Neutrophils # Man Lymphocytes # (Manual) Monocytes # (Manual) Eosinophils # (Manual) Nucleated RBC % Basophils # (Manual) PT INR APTT Heparin Anti-Xa Level ABG pH POC ABG pO2 ABG pO2 59.8 L ABG HCO3 33.3 H ABG O2 Saturation 88.9 L ABG Base Excess 7.4 H POC ABG pCO2 ABG Hemoglobin 10.4 L ABG Oxyhemoglobin ABG Chloride ABG Glucose Oxyhemoglobin 86.3 L Sodium Potassium Chloride Carbon Dioxide BUN Creatinine Glucose POC Glucose 127 H 114 H Lactic Acid Calcium Phosphorus Magnesium AST ALT Lactate Dehydrogenase Total Bilirubin Direct Bilirubin CK-MB (CK-2) C-Reactive Protein NT-Pro-B Natriuret Pep Total Protein Albumin Arterial Blood Glucose Urine WBC (Auto) Urine Creatinine 02/10/20 02/10/20 02/10/20 07:40 07:40 13:38 WBC 11.5 H RBC Hgb 10.6 L Hct 34.7 L MCHC 31 L RDW 19.8 H MCV 79 L MCH 24 L Lymph % (Auto) Banks % (Auto) 9.2 H Banks # Eos # Lymph # (Auto) Banks # (Auto) 1.1 H Eos # (Auto) Seg Neutrophils % Seg Neuts % (Manual) Baso # (Auto) Lymphocytes % (Manual) Monocytes % (Manual) Eosinophils % (Manual) Basophils % (Manual) Seg Neutrophils # Seg Neutrophils # Man Lymphocytes # (Manual) Monocytes # (Manual) Eosinophils # (Manual) Nucleated RBC % Basophils # (Manual) PT INR APTT Heparin Anti-Xa Level ABG pH POC ABG pO2 ABG pO2 ABG HCO3 ABG O2 Saturation ABG Base Excess POC ABG pCO2 ABG Hemoglobin ABG Oxyhemoglobin ABG Chloride ABG Glucose Oxyhemoglobin Sodium 151 H Potassium Chloride 107.2 H Carbon Dioxide 36 H BUN 25 H Creatinine 0.7 L Glucose 114 H POC Glucose 116 H Lactic Acid Calcium Phosphorus Magnesium 2.40 H AST ALT Lactate Dehydrogenase Total Bilirubin Direct Bilirubin CK-MB (CK-2) C-Reactive Protein NT-Pro-B Natriuret Pep Total Protein Albumin Arterial Blood Glucose Urine WBC (Auto) Urine Creatinine 02/10/20 02/11/20 02/11/20 17:44 05:47 12:21 WBC RBC Hgb Hct MCHC RDW MCV MCH Lymph % (Auto) Banks % (Auto) Banks # Eos # Lymph # (Auto) Banks # (Auto) Eos # (Auto) Seg Neutrophils % Seg Neuts % (Manual) Baso # (Auto) Lymphocytes % (Manual) Monocytes % (Manual) Eosinophils % (Manual) Basophils % (Manual) Seg Neutrophils # Seg Neutrophils # Man Lymphocytes # (Manual) Monocytes # (Manual) Eosinophils # (Manual) Nucleated RBC % Basophils # (Manual) PT INR APTT Heparin Anti-Xa Level ABG pH POC ABG pO2 ABG pO2 ABG HCO3 ABG O2 Saturation ABG Base Excess POC ABG pCO2 ABG Hemoglobin ABG Oxyhemoglobin ABG Chloride ABG Glucose Oxyhemoglobin Sodium Potassium Chloride Carbon Dioxide BUN Creatinine Glucose POC Glucose 139 H 173 H 143 H Lactic Acid Calcium Phosphorus Magnesium AST ALT Lactate Dehydrogenase Total Bilirubin Direct Bilirubin CK-MB (CK-2) C-Reactive Protein NT-Pro-B Natriuret Pep Total Protein Albumin Arterial Blood Glucose Urine WBC (Auto) Urine Creatinine 02/11/20 02/11/20 02/12/20 13:43 14:11 00:15 WBC RBC Hgb Hct MCHC RDW MCV MCH Lymph % (Auto) Banks % (Auto) Banks # Eos # Lymph # (Auto) Banks # (Auto) Eos # (Auto) Seg Neutrophils % Seg Neuts % (Manual) Baso # (Auto) Lymphocytes % (Manual) Monocytes % (Manual) Eosinophils % (Manual) Basophils % (Manual) Seg Neutrophils # Seg Neutrophils # Man Lymphocytes # (Manual) Monocytes # (Manual) Eosinophils # (Manual) Nucleated RBC % Basophils # (Manual) PT INR APTT Heparin Anti-Xa Level ABG pH 7.502 H POC ABG pO2 77.7 L ABG pO2 ABG HCO3 ABG O2 Saturation ABG Base Excess POC ABG pCO2 ABG Hemoglobin 11.1 L ABG Oxyhemoglobin ABG Chloride 108.0 H ABG Glucose 151 H Oxyhemoglobin Sodium Potassium Chloride Carbon Dioxide BUN Creatinine Glucose POC Glucose 130 H 125 H Lactic Acid Calcium Phosphorus Magnesium AST ALT Lactate Dehydrogenase Total Bilirubin Direct Bilirubin CK-MB (CK-2) C-Reactive Protein NT-Pro-B Natriuret Pep Total Protein Albumin Arterial Blood Glucose 151 H Urine WBC (Auto) Urine Creatinine 02/12/20 02/12/20 02/12/20 04:56 04:56 17:42 WBC RBC Hgb 9.9 L Hct 31.8 L MCHC 31 L RDW 19.4 H MCV 79 L MCH 25 L Lymph % (Auto) Banks % (Auto) 10.3 H Banks # Eos # Lymph # (Auto) Banks # (Auto) 1.0 H Eos # (Auto) Seg Neutrophils % Seg Neuts % (Manual) Baso # (Auto) Lymphocytes % (Manual) Monocytes % (Manual) Eosinophils % (Manual) Basophils % (Manual) Seg Neutrophils # Seg Neutrophils # Man Lymphocytes # (Manual) Monocytes # (Manual) Eosinophils # (Manual) Nucleated RBC % Basophils # (Manual) PT INR APTT Heparin Anti-Xa Level ABG pH POC ABG pO2 ABG pO2 ABG HCO3 ABG O2 Saturation ABG Base Excess POC ABG pCO2 ABG Hemoglobin ABG Oxyhemoglobin ABG Chloride ABG Glucose Oxyhemoglobin Sodium 149 H Potassium Chloride 108.6 H Carbon Dioxide BUN 28 H Creatinine 0.7 L Glucose 108 H POC Glucose 113 H Lactic Acid Calcium Phosphorus Magnesium AST ALT Lactate Dehydrogenase Total Bilirubin Direct Bilirubin CK-MB (CK-2) C-Reactive Protein NT-Pro-B Natriuret Pep Total Protein Albumin Arterial Blood Glucose Urine WBC (Auto) Urine Creatinine 02/13/20 02/13/20 02/13/20 00:39 05:36 12:25 WBC RBC Hgb Hct MCHC RDW MCV MCH Lymph % (Auto) Banks % (Auto) Banks # Eos # Lymph # (Auto) Banks # (Auto) Eos # (Auto) Seg Neutrophils % Seg Neuts % (Manual) Baso # (Auto) Lymphocytes % (Manual) Monocytes % (Manual) Eosinophils % (Manual) Basophils % (Manual) Seg Neutrophils # Seg Neutrophils # Man Lymphocytes # (Manual) Monocytes # (Manual) Eosinophils # (Manual) Nucleated RBC % Basophils # (Manual) PT INR APTT Heparin Anti-Xa Level ABG pH POC ABG pO2 ABG pO2 ABG HCO3 ABG O2 Saturation ABG Base Excess POC ABG pCO2 ABG Hemoglobin ABG Oxyhemoglobin ABG Chloride ABG Glucose Oxyhemoglobin Sodium Potassium Chloride Carbon Dioxide BUN Creatinine Glucose POC Glucose 129 H 126 H 129 H Lactic Acid Calcium Phosphorus Magnesium AST ALT Lactate Dehydrogenase Total Bilirubin Direct Bilirubin CK-MB (CK-2) C-Reactive Protein NT-Pro-B Natriuret Pep Total Protein Albumin Arterial Blood Glucose Urine WBC (Auto) Urine Creatinine 02/13/20 02/14/20 02/14/20 17:59 00:15 05:41 WBC RBC Hgb Hct MCHC RDW MCV MCH Lymph % (Auto) Banks % (Auto) Banks # Eos # Lymph # (Auto) Banks # (Auto) Eos # (Auto) Seg Neutrophils % Seg Neuts % (Manual) Baso # (Auto) Lymphocytes % (Manual) Monocytes % (Manual) Eosinophils % (Manual) Basophils % (Manual) Seg Neutrophils # Seg Neutrophils # Man Lymphocytes # (Manual) Monocytes # (Manual) Eosinophils # (Manual) Nucleated RBC % Basophils # (Manual) PT INR APTT Heparin Anti-Xa Level ABG pH POC ABG pO2 ABG pO2 ABG HCO3 ABG O2 Saturation ABG Base Excess POC ABG pCO2 ABG Hemoglobin ABG Oxyhemoglobin ABG Chloride ABG Glucose Oxyhemoglobin Sodium Potassium Chloride Carbon Dioxide BUN Creatinine Glucose POC Glucose 153 H 130 H 130 H Lactic Acid Calcium Phosphorus Magnesium AST ALT Lactate Dehydrogenase Total Bilirubin Direct Bilirubin CK-MB (CK-2) C-Reactive Protein NT-Pro-B Natriuret Pep Total Protein Albumin Arterial Blood Glucose Urine WBC (Auto) Urine Creatinine 02/14/20 02/15/20 02/15/20 11:32 00:12 05:27 WBC RBC Hgb Hct MCHC RDW MCV MCH Lymph % (Auto) Banks % (Auto) Banks # Eos # Lymph # (Auto) Banks # (Auto) Eos # (Auto) Seg Neutrophils % Seg Neuts % (Manual) Baso # (Auto) Lymphocytes % (Manual) Monocytes % (Manual) Eosinophils % (Manual) Basophils % (Manual) Seg Neutrophils # Seg Neutrophils # Man Lymphocytes # (Manual) Monocytes # (Manual) Eosinophils # (Manual) Nucleated RBC % Basophils # (Manual) PT INR APTT Heparin Anti-Xa Level ABG pH POC ABG pO2 ABG pO2 ABG HCO3 ABG O2 Saturation ABG Base Excess POC ABG pCO2 ABG Hemoglobin ABG Oxyhemoglobin ABG Chloride ABG Glucose Oxyhemoglobin Sodium Potassium Chloride Carbon Dioxide BUN Creatinine Glucose POC Glucose 157 H 124 H 111 H Lactic Acid Calcium Phosphorus Magnesium AST ALT Lactate Dehydrogenase Total Bilirubin Direct Bilirubin CK-MB (CK-2) C-Reactive Protein NT-Pro-B Natriuret Pep Total Protein Albumin Arterial Blood Glucose Urine WBC (Auto) Urine Creatinine 02/15/20 02/15/20 02/15/20 06:59 06:59 11:14 WBC RBC Hgb 10.4 L Hct 33.7 L MCHC 31 L RDW 19.4 H MCV 80 L MCH 24 L Lymph % (Auto) Banks % (Auto) Banks # Eos # Lymph # (Auto) Banks # (Auto) Eos # (Auto) Seg Neutrophils % Seg Neuts % (Manual) Baso # (Auto) Lymphocytes % (Manual) Monocytes % (Manual) Eosinophils % (Manual) Basophils % (Manual) 2.0 H Seg Neutrophils # Seg Neutrophils # Man Lymphocytes # (Manual) Monocytes # (Manual) Eosinophils # (Manual) Nucleated RBC % 1.0 H Basophils # (Manual) 0.2 H PT INR APTT Heparin Anti-Xa Level ABG pH POC ABG pO2 ABG pO2 ABG HCO3 ABG O2 Saturation ABG Base Excess POC ABG pCO2 ABG Hemoglobin ABG Oxyhemoglobin ABG Chloride ABG Glucose Oxyhemoglobin Sodium 149 H Potassium Chloride 108.4 H Carbon Dioxide 31 H BUN 40 H Creatinine 0.7 L Glucose 150 H POC Glucose 128 H Lactic Acid Calcium Phosphorus Magnesium AST ALT Lactate Dehydrogenase Total Bilirubin Direct Bilirubin CK-MB (CK-2) C-Reactive Protein NT-Pro-B Natriuret Pep Total Protein Albumin Arterial Blood Glucose Urine WBC (Auto) Urine Creatinine 02/15/20 02/15/20 02/16/20 17:46 23:50 05:03 WBC RBC Hgb Hct MCHC RDW MCV MCH Lymph % (Auto) Banks % (Auto) Banks # Eos # Lymph # (Auto) Banks # (Auto) Eos # (Auto) Seg Neutrophils % Seg Neuts % (Manual) Baso # (Auto) Lymphocytes % (Manual) Monocytes % (Manual) Eosinophils % (Manual) Basophils % (Manual) Seg Neutrophils # Seg Neutrophils # Man Lymphocytes # (Manual) Monocytes # (Manual) Eosinophils # (Manual) Nucleated RBC % Basophils # (Manual) PT INR APTT Heparin Anti-Xa Level ABG pH POC ABG pO2 ABG pO2 ABG HCO3 ABG O2 Saturation ABG Base Excess POC ABG pCO2 ABG Hemoglobin ABG Oxyhemoglobin ABG Chloride ABG Glucose Oxyhemoglobin Sodium Potassium Chloride Carbon Dioxide BUN Creatinine Glucose POC Glucose 154 H 135 H 148 H Lactic Acid Calcium Phosphorus Magnesium AST ALT Lactate Dehydrogenase Total Bilirubin Direct Bilirubin CK-MB (CK-2) C-Reactive Protein NT-Pro-B Natriuret Pep Total Protein Albumin Arterial Blood Glucose Urine WBC (Auto) Urine Creatinine 02/16/20 02/16/20 02/16/20 07:53 11:28 17:52 WBC RBC Hgb Hct MCHC RDW MCV MCH Lymph % (Auto) Banks % (Auto) Banks # Eos # Lymph # (Auto) Banks # (Auto) Eos # (Auto) Seg Neutrophils % Seg Neuts % (Manual) Baso # (Auto) Lymphocytes % (Manual) Monocytes % (Manual) Eosinophils % (Manual) Basophils % (Manual) Seg Neutrophils # Seg Neutrophils # Man Lymphocytes # (Manual) Monocytes # (Manual) Eosinophils # (Manual) Nucleated RBC % Basophils # (Manual) PT INR APTT Heparin Anti-Xa Level ABG pH POC ABG pO2 ABG pO2 ABG HCO3 ABG O2 Saturation ABG Base Excess POC ABG pCO2 ABG Hemoglobin ABG Oxyhemoglobin ABG Chloride ABG Glucose Oxyhemoglobin Sodium Potassium Chloride 107.9 H Carbon Dioxide BUN 38 H Creatinine 0.6 L Glucose 151 H POC Glucose 123 H 152 H Lactic Acid Calcium Phosphorus Magnesium AST ALT Lactate Dehydrogenase Total Bilirubin Direct Bilirubin CK-MB (CK-2) C-Reactive Protein NT-Pro-B Natriuret Pep Total Protein Albumin Arterial Blood Glucose Urine WBC (Auto) Urine Creatinine 02/16/20 02/17/20 02/17/20 23:49 06:24 11:36 WBC RBC Hgb Hct MCHC RDW MCV MCH Lymph % (Auto) Banks % (Auto) Banks # Eos # Lymph # (Auto) Banks # (Auto) Eos # (Auto) Seg Neutrophils % Seg Neuts % (Manual) Baso # (Auto) Lymphocytes % (Manual) Monocytes % (Manual) Eosinophils % (Manual) Basophils % (Manual) Seg Neutrophils # Seg Neutrophils # Man Lymphocytes # (Manual) Monocytes # (Manual) Eosinophils # (Manual) Nucleated RBC % Basophils # (Manual) PT INR APTT Heparin Anti-Xa Level ABG pH POC ABG pO2 ABG pO2 ABG HCO3 ABG O2 Saturation ABG Base Excess POC ABG pCO2 ABG Hemoglobin ABG Oxyhemoglobin ABG Chloride ABG Glucose Oxyhemoglobin Sodium Potassium Chloride Carbon Dioxide BUN Creatinine Glucose POC Glucose 156 H 193 H 162 H Lactic Acid Calcium Phosphorus Magnesium AST ALT Lactate Dehydrogenase Total Bilirubin Direct Bilirubin CK-MB (CK-2) C-Reactive Protein NT-Pro-B Natriuret Pep Total Protein Albumin Arterial Blood Glucose Urine WBC (Auto) Urine Creatinine 02/17/20 02/17/20 02/18/20 17:55 23:28 05:11 WBC RBC Hgb Hct MCHC RDW MCV MCH Lymph % (Auto) Banks % (Auto) Banks # Eos # Lymph # (Auto) Banks # (Auto) Eos # (Auto) Seg Neutrophils % Seg Neuts % (Manual) Baso # (Auto) Lymphocytes % (Manual) Monocytes % (Manual) Eosinophils % (Manual) Basophils % (Manual) Seg Neutrophils # Seg Neutrophils # Man Lymphocytes # (Manual) Monocytes # (Manual) Eosinophils # (Manual) Nucleated RBC % Basophils # (Manual) PT INR APTT Heparin Anti-Xa Level ABG pH POC ABG pO2 ABG pO2 ABG HCO3 ABG O2 Saturation ABG Base Excess POC ABG pCO2 ABG Hemoglobin ABG Oxyhemoglobin ABG Chloride ABG Glucose Oxyhemoglobin Sodium Potassium Chloride Carbon Dioxide BUN Creatinine Glucose POC Glucose 165 H 146 H 122 H Lactic Acid Calcium Phosphorus Magnesium AST ALT Lactate Dehydrogenase Total Bilirubin Direct Bilirubin CK-MB (CK-2) C-Reactive Protein NT-Pro-B Natriuret Pep Total Protein Albumin Arterial Blood Glucose Urine WBC (Auto) Urine Creatinine 02/18/20 02/18/20 02/19/20 12:24 17:29 00:01 WBC RBC Hgb Hct MCHC RDW MCV MCH Lymph % (Auto) Banks % (Auto) Banks # Eos # Lymph # (Auto) Banks # (Auto) Eos # (Auto) Seg Neutrophils % Seg Neuts % (Manual) Baso # (Auto) Lymphocytes % (Manual) Monocytes % (Manual) Eosinophils % (Manual) Basophils % (Manual) Seg Neutrophils # Seg Neutrophils # Man Lymphocytes # (Manual) Monocytes # (Manual) Eosinophils # (Manual) Nucleated RBC % Basophils # (Manual) PT INR APTT Heparin Anti-Xa Level ABG pH POC ABG pO2 ABG pO2 ABG HCO3 ABG O2 Saturation ABG Base Excess POC ABG pCO2 ABG Hemoglobin ABG Oxyhemoglobin ABG Chloride ABG Glucose Oxyhemoglobin Sodium Potassium Chloride Carbon Dioxide BUN Creatinine Glucose POC Glucose 162 H 136 H 145 H Lactic Acid Calcium Phosphorus Magnesium AST ALT Lactate Dehydrogenase Total Bilirubin Direct Bilirubin CK-MB (CK-2) C-Reactive Protein NT-Pro-B Natriuret Pep Total Protein Albumin Arterial Blood Glucose Urine WBC (Auto) Urine Creatinine 02/19/20 02/19/20 02/19/20 05:53 11:44 17:32 WBC RBC Hgb Hct MCHC RDW MCV MCH Lymph % (Auto) Banks % (Auto) Banks # Eos # Lymph # (Auto) Banks # (Auto) Eos # (Auto) Seg Neutrophils % Seg Neuts % (Manual) Baso # (Auto) Lymphocytes % (Manual) Monocytes % (Manual) Eosinophils % (Manual) Basophils % (Manual) Seg Neutrophils # Seg Neutrophils # Man Lymphocytes # (Manual) Monocytes # (Manual) Eosinophils # (Manual) Nucleated RBC % Basophils # (Manual) PT INR APTT Heparin Anti-Xa Level ABG pH POC ABG pO2 ABG pO2 ABG HCO3 ABG O2 Saturation ABG Base Excess POC ABG pCO2 ABG Hemoglobin ABG Oxyhemoglobin ABG Chloride ABG Glucose Oxyhemoglobin Sodium Potassium Chloride Carbon Dioxide BUN Creatinine Glucose POC Glucose 116 H 120 H 154 H Lactic Acid Calcium Phosphorus Magnesium AST ALT Lactate Dehydrogenase Total Bilirubin Direct Bilirubin CK-MB (CK-2) C-Reactive Protein NT-Pro-B Natriuret Pep Total Protein Albumin Arterial Blood Glucose Urine WBC (Auto) Urine Creatinine 02/19/20 02/20/20 02/20/20 23:43 00:24 00:24 WBC RBC Hgb 9.4 L Hct 30.0 L MCHC 31 L RDW 20.4 H MCV 79 L MCH 25 L Lymph % (Auto) Banks % (Auto) 8.5 H Banks # Eos # Lymph # (Auto) Banks # (Auto) Eos # (Auto) Seg Neutrophils % Seg Neuts % (Manual) Baso # (Auto) Lymphocytes % (Manual) Monocytes % (Manual) Eosinophils % (Manual) Basophils % (Manual) Seg Neutrophils # Seg Neutrophils # Man Lymphocytes # (Manual) Monocytes # (Manual) Eosinophils # (Manual) Nucleated RBC % Basophils # (Manual) PT INR APTT Heparin Anti-Xa Level ABG pH POC ABG pO2 ABG pO2 ABG HCO3 ABG O2 Saturation ABG Base Excess POC ABG pCO2 ABG Hemoglobin ABG Oxyhemoglobin ABG Chloride ABG Glucose Oxyhemoglobin Sodium 147 H Potassium 3.4 L Chloride Carbon Dioxide 31 H BUN 34 H Creatinine 0.5 L Glucose 135 H POC Glucose 122 H Lactic Acid Calcium Phosphorus Magnesium AST ALT Lactate Dehydrogenase Total Bilirubin Direct Bilirubin CK-MB (CK-2) C-Reactive Protein NT-Pro-B Natriuret Pep Total Protein Albumin Arterial Blood Glucose Urine WBC (Auto) Urine Creatinine 02/20/20 02/20/20 02/20/20 06:07 06:45 12:03 WBC RBC Hgb Hct MCHC RDW MCV MCH Lymph % (Auto) Banks % (Auto) Banks # Eos # Lymph # (Auto) Banks # (Auto) Eos # (Auto) Seg Neutrophils % Seg Neuts % (Manual) Baso # (Auto) Lymphocytes % (Manual) Monocytes % (Manual) Eosinophils % (Manual) Basophils % (Manual) Seg Neutrophils # Seg Neutrophils # Man Lymphocytes # (Manual) Monocytes # (Manual) Eosinophils # (Manual) Nucleated RBC % Basophils # (Manual) PT INR APTT Heparin Anti-Xa Level ABG pH 7.461 H POC ABG pO2 ABG pO2 ABG HCO3 33.3 H ABG O2 Saturation ABG Base Excess 8.4 H POC ABG pCO2 ABG Hemoglobin 10.0 L ABG Oxyhemoglobin ABG Chloride ABG Glucose Oxyhemoglobin 94.1 L Sodium Potassium Chloride Carbon Dioxide BUN Creatinine Glucose POC Glucose 109 H 128 H Lactic Acid Calcium Phosphorus Magnesium AST ALT Lactate Dehydrogenase Total Bilirubin Direct Bilirubin CK-MB (CK-2) C-Reactive Protein NT-Pro-B Natriuret Pep Total Protein Albumin Arterial Blood Glucose Urine WBC (Auto) Urine Creatinine 02/20/20 02/20/20 02/21/20 18:02 23:55 05:42 WBC RBC Hgb Hct MCHC RDW MCV MCH Lymph % (Auto) Banks % (Auto) Banks # Eos # Lymph # (Auto) Banks # (Auto) Eos # (Auto) Seg Neutrophils % Seg Neuts % (Manual) Baso # (Auto) Lymphocytes % (Manual) Monocytes % (Manual) Eosinophils % (Manual) Basophils % (Manual) Seg Neutrophils # Seg Neutrophils # Man Lymphocytes # (Manual) Monocytes # (Manual) Eosinophils # (Manual) Nucleated RBC % Basophils # (Manual) PT INR APTT Heparin Anti-Xa Level ABG pH POC ABG pO2 ABG pO2 ABG HCO3 ABG O2 Saturation ABG Base Excess POC ABG pCO2 ABG Hemoglobin ABG Oxyhemoglobin ABG Chloride ABG Glucose Oxyhemoglobin Sodium Potassium Chloride Carbon Dioxide BUN Creatinine Glucose POC Glucose 118 H 125 H 127 H Lactic Acid Calcium Phosphorus Magnesium AST ALT Lactate Dehydrogenase Total Bilirubin Direct Bilirubin CK-MB (CK-2) C-Reactive Protein NT-Pro-B Natriuret Pep Total Protein Albumin Arterial Blood Glucose Urine WBC (Auto) Urine Creatinine 02/21/20 02/21/2002/20/20 12:10 17:35 23:40 WBC RBC Hgb Hct MCHC RDW MCV MCH Lymph % (Auto) Banks % (Auto) Banks # Eos # Lymph # (Auto) Banks # (Auto) Eos # (Auto) Seg Neutrophils % Seg Neuts % (Manual) Baso # (Auto) Lymphocytes % (Manual) Monocytes % (Manual) Eosinophils % (Manual) Basophils % (Manual) Seg Neutrophils # Seg Neutrophils # Man Lymphocytes # (Manual) Monocytes # (Manual) Eosinophils # (Manual) Nucleated RBC % Basophils # (Manual) PT INR APTT Heparin Anti-Xa Level ABG pH POC ABG pO2 ABG pO2 ABG HCO3 ABG O2 Saturation ABG Base Excess POC ABG pCO2 ABG Hemoglobin ABG Oxyhemoglobin ABG Chloride ABG Glucose Oxyhemoglobin Sodium Potassium Chloride Carbon Dioxide BUN Creatinine Glucose POC Glucose 128 H 113 H 125 H Lactic Acid Calcium Phosphorus Magnesium AST ALT Lactate Dehydrogenase Total Bilirubin Direct Bilirubin CK-MB (CK-2) C-Reactive Protein NT-Pro-B Natriuret Pep Total Protein Albumin Arterial Blood Glucose Urine WBC (Auto) Urine Creatinine 02/22/20 02/22/20 02/22/20 05:57 08:06 08:06 WBC RBC Hgb 10.8 L Hct 35.2 L MCHC 31 L RDW 21.8 H MCV 80 L MCH 25 L Lymph % (Auto) Banks % (Auto) Banks # Eos # Lymph # (Auto) Banks # (Auto) Eos # (Auto) Seg Neutrophils % 71.5 H Seg Neuts % (Manual) Baso # (Auto) Lymphocytes % (Manual) Monocytes % (Manual) Eosinophils % (Manual) Basophils % (Manual) Seg Neutrophils # Seg Neutrophils # Man Lymphocytes # (Manual) Monocytes # (Manual) Eosinophils # (Manual) Nucleated RBC % Basophils # (Manual) PT INR APTT Heparin Anti-Xa Level ABG pH POC ABG pO2 ABG pO2 ABG HCO3 ABG O2 Saturation ABG Base Excess POC ABG pCO2 ABG Hemoglobin ABG Oxyhemoglobin ABG Chloride ABG Glucose Oxyhemoglobin Sodium 146 H Potassium Chloride Carbon Dioxide 34 H BUN 21 H Creatinine 0.4 L Glucose 149 H POC Glucose 138 H Lactic Acid Calcium Phosphorus Magnesium AST ALT Lactate Dehydrogenase Total Bilirubin Direct Bilirubin CK-MB (CK-2) C-Reactive Protein NT-Pro-B Natriuret Pep Total Protein Albumin Arterial Blood Glucose Urine WBC (Auto) Urine Creatinine 02/22/20 11:47 WBC RBC Hgb Hct MCHC RDW MCV MCH Lymph % (Auto) Banks % (Auto) Banks # Eos # Lymph # (Auto) Banks # (Auto) Eos # (Auto) Seg Neutrophils % Seg Neuts % (Manual) Baso # (Auto) Lymphocytes % (Manual) Monocytes % (Manual) Eosinophils % (Manual) Basophils % (Manual) Seg Neutrophils # Seg Neutrophils # Man Lymphocytes # (Manual) Monocytes # (Manual) Eosinophils # (Manual) Nucleated RBC % Basophils # (Manual) PT INR APTT Heparin Anti-Xa Level ABG pH POC ABG pO2 ABG pO2 ABG HCO3 ABG O2 Saturation ABG Base Excess POC ABG pCO2 ABG Hemoglobin ABG Oxyhemoglobin ABG Chloride ABG Glucose Oxyhemoglobin Sodium Potassium Chloride Carbon Dioxide BUN Creatinine Glucose POC Glucose 149 H Lactic Acid Calcium Phosphorus Magnesium AST ALT Lactate Dehydrogenase Total Bilirubin Direct Bilirubin CK-MB (CK-2) C-Reactive Protein NT-Pro-B Natriuret Pep Total Protein Albumin Arterial Blood Glucose Urine WBC (Auto) Urine Creatinine Allied health notes reviewed: RT
[2020-02-22] MEDS: DIGOXIN 0.5 MG/2 ML INJ IV SCH (19:03)
[2020-02-22] MEDS: TAMSULOSIN 0.4 MG CAP PO SCH (21:11)
[2020-02-22] MEDS: POLYETHYLENE GLYCOL 3350 17 GM POWDER PO SCH (21:12)
[2020-02-23] MEDS: INSULIN REGULAR, HUMAN 100 UNIT/ML 3ML VIAL SUB-Q SCH ×3 (08:22→18:20)
--- NOTE | 2020-02-23 09:13 | Progress Note ---
Assessment and Plan Chest pain, resolved LHC done 01/22/20 widely patent previous LAD stent. We found mild nonobstructive atherosclerosis of the mid right coronary artery. Otherwise the rest of the coronary system was without significant atherosclerosis. LVEF 40 to 45%. There was some hypokinesis of the basal inferior wall suggestive of previous or recent infarct. ECG done 01/19/20 shows sinus rhythm with low voltage QRS and subtle ST segment elevations in the inferolateral leads that suggested possible concern for an acute injury at that time. Atrial fibrillation, rate control on digoxin amiodarone discontinued due to liver transaminases Ischemic Cardiomyopathy re-echo this presentation reports an LVEF 40-45%. Hx of CAD Multifocal pneumonia negative COVID-19 test x 3 Chronic Respiratory failure s/p trach History of COPD Acute PE/DVT -on Eliquis Anemia Partial SBO vs ileus Conservative cardiac management. Subjective Date of service: 02/23/20 Principal diagnosis: Ac hypoxemic resp failure; Pneumonia; PUI COVID-19; CHF; COPD; HTN Interval history: No interval cardiac changes. Atrial fibrillation with a well controlled ventricular rate on telemetry. Objective Vital Signs Temp Pulse Pulse Resp BP Pulse Ox Pulse Ox 02/23/20 08:00 97.5 F L 02/23/20 06:01 95 H 20 106/79 95 02/23/20 05:30 94 H 19 115/83 96 02/23/20 05:06 101 H 105/87 96 02/23/20 05:05 98 02/23/20 05:00 103 H 21 105/87 95 02/23/20 04:31 82 25 H 110/86 96 02/23/20 04:00 98.2 F 98 H 22 111/82 98 02/23/20 03:55 94 H 100 H 23 96 02/23/20 03:31 87 25 H 107/75 98 02/23/20 03:00 91 H 20 118/84 97 02/23/20 02:31 114 H 22 124/91 02/23/20 02:00 77 17 121/83 97 02/23/20 01:46 99 02/23/20 01:45 94 H 102 H 23 96 02/23/20 01:42 94 H 123/81 99 02/23/20 01:30 96 H 16 123/81 95 02/23/20 01:00 98 H 17 113/81 95 02/23/20 00:31 86 14 114/80 94 02/23/20 00:00 100 H 22 104/84 99 02/22/20 23:56 98.6 F 02/22/20 23:32 79 16 114/80 97 02/22/20 23:30 81 12 114/80 96 02/22/20 23:00 86 18 119/85 96 02/22/20 22:30 115 H 21 111/86 95 02/22/20 22:00 87 15 103/79 02/22/20 21:30 83 16 113/68 93 02/22/20 21:15 81 93 H 23 96 02/22/20 21:00 84 17 122/77 93 02/22/20 20:30 116 H 25 H 110/95 98 02/22/20 20:00 98.3 F 123 H 25 H 110/95 92 02/22/20 19:33 21 02/22/20 19:30 126 H 30 H 107/87 98 02/22/20 19:20 123 H 123 H 23 96 02/22/20 19:03 89 121/94 02/22/20 19:00 96 H 16 121/94 96 02/22/20 18:30 114 H 28 H 107/86 97 02/22/20 18:00 104 H 26 H 115/83 93 02/22/20 17:30 124 H 27 H 120/87 97 02/22/20 17:00 67 22 132/89 97 02/22/20 16:30 88 16 127/67 95 02/22/20 16:00 104 H 96 H 29 H 115/83 98 98 02/22/20 15:30 101 H 16 126/83 94 02/22/20 15:00 127 H 27 H 126/83 95 02/22/20 14:30 106 H 25 H 117/83 93 02/22/20 14:00 103 H 24 127/74 87 02/22/20 13:30 92 H 25 H 117/71 95 02/22/20 13:00 86 28 H 121/79 94 02/22/20 12:30 102 H 25 H 122/82 96 02/22/20 12:00 98.5 F 69 96 H 23 112/81 95 02/22/20 11:30 92 H 21 111/76 96 11/30/20 11:00 93 H 24 112/80 02/22/20 10:30 66 26 H 111/85 02/22/20 10:00 110 H 26 H 109/87 93 02/22/20 09:30 100 H 21 112/82 95 - Physical Examination General: Other (s/p trach) HEENT: Positive: PERRL Cardiac: Positive: irregularly irregular Neuro: Positive: Weakness - Labs and Meds Comprehensive Metabolic Panel 02/22/20 Range/Units 08:06 Potassium 3.7 (3.6-5.0) mmol/L Creatinine 0.4 L (0.8-1.3) mg/dL - Allied health notes Allied health notes reviewed: RT
[2020-02-23] MEDS: QUEtiapine 100 MG TAB PO SCH ×3 (09:40→21:08)
[2020-02-23] MEDS: LANSOPRAZOLE 30 MG SOLUTAB FEEDTUBE SCH (09:40)
[2020-02-23] MEDS: CLOPIDOGREL 75 MG TAB PO SCH (09:40)
[2020-02-23] MEDS: MIDODRINE 5 MG TAB PO SCH ×3 (09:40→17:03)
[2020-02-23] MEDS: DOCUSATE SODIUM 100 MG/10 ML ORAL LIQD FEEDTUBE SCH (09:40)
[2020-02-23] MEDS: APIXABAN 5 MG TAB PO SCH ×3 (09:40→21:07)
[2020-02-23] MEDS: GLYCOPYRROLATE 1 MG TAB PO SCH ×3 (09:40→20:00)
[2020-02-23] MEDS: MORPHINE 2 MG/1 ML INJ IV PRN (10:11)
--- NOTE | 2020-02-23 10:39 | Progress Note ---
Assessment and Plan Assessment and plan: --Ischemic cardiomyopathy Cardiology is following, status post cardiac catheterization on 01/22/2020; C oronary artery disease status post PCI and stent to the LAD Continue current cardiac medications --Acute on chronic hypoxemic respiratory failure; Patient has tracheostomy on vent Continue nebulizers, , trach care Wean off ventilator as tolerated Pulmonary critical following --Acute exacerbation of COPD; Patient is currently on ventilatory support Continue nebulizers --Left lower lobe PE; Continue Eliquis, ventilatory support --Acute right lower extremity DVT; Patient is on Eliquis --Bilateral multifocal pneumonia/community-acquired Completed antibiotics, improved --Severe sepsis/bilateral pneumonia: Completed antibiotics COVID-19 test; 11/24/2019; negative 11/26/2019; negative 12/29/2019: Negative --Paroxysmal atrial fibrillation; Now rate controlled, Stable on amiodarone and Eliquis --Acute on chronic combined systolic and diastolic congestive heart failure Ischemic cardiomyopathy left ventricular ejection fraction 40 to 45% --H/o CAD [[facility] 12/2018 in-stent restenosis] Patient is stable on current cardiac medications --Hypertensive emergency; present on admission Reasonable blood pressures, continue current antihypertensives As needed medications --History of alcohol abuse/alcohol withdrawal; Was on CIWA protocol, now stable --Oropharyngeal dysphagia; status post PEG placement Continue PEG feeds per protocol --History of partial small bowel obstruction; resolved Surgery evaluated. --Obesity; BMI 34.7 Patient needs weight reduction when medically stable --Severe protein calorie malnutrition/hypoalbuminemia Nutrition supplements, dietitian following, PEG feeds --DVT prophylaxis;Eliquis --Full CODE STATUS 01/05; Pt stable. NGT output 650cc over 24 hours, bilious. No f/c, WBC within normal limits. cont NG suction and cont to hold TF 01/06: Abs series - mild improvement in small bowel distension in mid abdomen, normal gas/stool pattern in colon. NGT in duodenum. Continue to hold tube feeding, maintain NG tube with low intermittent suction. Patient's was updated by phone. Continue to provide supportive care and monitor clinically. 01/07: +BMs today and NGT/PEG output appears more gastric today. Plan to clamp NGT, if tolerates start TF from tomorrow. cont supportive care. 01/08; Gastric output decreased over last 24 hours. NGT has been clamped x 24 hours. plan to dc NGT and to start TTF via PEG - vital HF @10cc/hr 01/09: clinically stable, tolerating TF. monitor BMP, wean off from vent as tolerated clinically stable, on TF. wean off vent as tolerated 01/11: wean off from vent, cont to monitor, on TF 01/12: wean off from vent, cont to monitor, on TF. need placement - unfunded 01/13; remains on ventilatory support, unable to wean, DC planning possible LTAC, unfunded 01/14; patient of ventilatory support, T-piece tracheostomy on oxygen, LTAC placement per case management 01/16; tracheostomy, patient on full ventilatory support, wean off vent support as tolerated, pending LTAC placement, social financial issues 01/17; awaiting LTAC placement, insurance and financial issues 01/18; patient tracheostomy remains on ventilatory support 01/19; wean off ventilator as tolerated 01/20; remains on ventilatory support, patient complains of intermittent chest pain, cardiology recommend left heart catheterization tomorrow 01/22/2020. Patient for left heart catheterization per cardiology. Patient remains on AC mode ventilation rate 12, tidal volume 450, FiO2 30% and PEEP of 6. Continue tracheostomy care, airway management and secretion control. 01/23/2020. Cardiac catheterization completed yesterday revealed widely patent previous LAD stent with mild nonobstructive atherosclerosis of the right mid coronary artery and rest of the coronary system was without significant atherosclerosis. The left ventricle ejection fraction was mildly impaired at 40 to 45%. There was some hypokinesis of the basal inferior wall suggestive of previous or recent infarct. Continue GDMT for coronary artery disease including beta blockers, topical nitrates, statin and Plavix. Continue Eliquis for paroxysmal atrial fibrillation and PE. Continue diuresis with Lasix and follow electrolytes closely. Continue Robinul and scopolamine for secretion control and daily SBT per pulmonary. Also, continue bronchodilators and routine trach care/airway management. T-piece trials per pulmonary as tolerated. 01/24/2020. Recent cardiac catheterization has documented widely patent left anterior descending artery stent with minimal nonobstructive diffuse coronary artery disease in the rest of the coronary arteries. Evidence of ischemic cardiomyopathy with inferior wall hypokinesis. Continue with guideline directed medical therapy. Continue Robinul and scopolamine for secretion control and daily SBT per pulmonary. Continue bronchodilators and routine trach care/airway management. T-piece trials per pulmonary as tolerated. 01/25/2020. Continue with guideline directed medical therapy for systolic heart failure. Cardiac catheterization revealed evidence of ischemic cardiomyopathy with inferior wall hypokinesis (EF 40-45%). Patient currently on T-piece with oxygen 10 L/min FiO2 40%. Continue Robinul and scopolamine for secretion control. Continue bronchodilators and routine trach care/airway management. 02/03: Mental status more improved, agree with Reglan will change to IV scheduled for two days, no new vomiting. Pseudomonas A in Sputum. 02/04: Clinical improving, amiodarone discontinued due to LFTs, continue Metoprolol.d/w GI, started on Golytely to clear impaction. Started on dialy Miralax. 02/05: Continue supportive care. Noted bowel movement, continue bowel regimen 02/06: Cardiology input noted beta-hebert increased for better suppression of atrial fibrillation. Continue to monitor, no other evidence of nausea vomiting noted. Discussed with respiratory therapist will be continued on weaning protocol with pressure support today. 02/07: Patient successfully weaned off the ventilator, No new complaints, continue monitoring, BM noted, Discussed with pulmonary, 02/08; tracheostomy on T-piece, patient is more alert and awake today 02/09; clinically no change, tracheostomy on vent 02/10; tracheostomy on vent, full CODE STATUS, poor prognosis, 02/11; clinically no change, remains on ventilatory support, full CODE STATUS, discussed with spouse Ms. Paulette Araiza extensively today 02/12. Patient resting comfortably no change on vent with tracheostomy. Still unable to wean. Some increased crackles today. 02/13: Still unable to wean from the vent. Overall prognosis remains extremely poor. 02/14; remains critically ill, tracheostomy on vent, unable to wean, poor prognosis, full CODE STATUS 02/15; patient is more alert and awake today, chronic tracheostomy on T-piece, continue current management DC planning per case management. Disposition very difficult due to lack of resources and insurance 02/17/2020. Patient remains on mechanical ventilation and tolerating PSV trials. Patient currently with PSV 10/6 at FiO2 of 30%. 02/18/2020. Patient currently on PSV 10/6 with FiO2 of 40%. 40% T-piece trial was attempted but patient unable to tolerate due to saturations dropping into the 80s and heart rate in the 140s. Therefore, patient placed back on PSV. Continue anticoagulation with Eliquis. Continue secretion control with Robinul and scopolamine. Continue rate control with metoprolol and digoxin. 02/19/2020. Patient currently on PSV 10/6 with FiO2 of 30%. T-piece trial attempted yesterday but patient did not tolerate. Continue T-piece trials as tolerated. Continue anticoagulation with Eliquis. Continue secretion control with Robinul and scopolamine. Continue rate control with metoprolol and digoxin. Continue to follow with case management with regards to discharge p lizette. 02/20/2020. Patient continues to tolerate PSV 10/6. Continue rate control with metoprolol and digoxin. Amiodarone discontinued due to elevated liver transaminases. Eliquis for anticoagulation acute PE/DVT. 02/21/2020. Patient continues to tolerate PSV 10/6 at FiO2 of 30%. Continue r ate control with metoprolol and digoxin. Amiodarone discontinued due to elevated liver transaminases. Eliquis for anticoagulation acute PE/DVT. 02/22/2020. Patient continues to tolerate PSV 10/6 at FiO2 of 30%. Continue rate control with metoprolol and digoxin. Amiodarone discontinued due to e levated liver transaminases. Eliquis for anticoagulation acute PE/DVT. 02/22. Awake and alert on vent. Vitals stable The high probability of a clinically significant, sudden or life threatening deterioration of the [Respiratory, cardiovascular & neurological] system(s) required my full and di rect attention, intervention and personal management. The aggregate critical care time was [32] minutes without overlap. Time includes spent on [x] Data Review and interpretation [x] Patient assessment and monitoring of vital signs [x] Documentation [x] Medication orders and management History Interval history: Patient seen and examined at bedside this morning. He has no complaints today. Vitals stable Hospitalist Physical - Physical exam Narrative exam: VITAL SIGNS: Reviewed. GENERAL: Awake on vent HEAD: No signs of head trauma. EYES: Pupils are equal. Extraocular motions intact. EARS: Hearing grossly intact. MOUTH: Oropharynx is normal. NECK: No adenopathy, no JVD. Trach in place CHEST: Chest with diminished breath sounds bilaterally. No wheezes, rales, or rhonchi. CARDIAC: Regular rate and rhythm. S1 and S2, without murmurs, gallops, or rubs. VASCULAR: +Edema. Peripheral pulses normal and equal in all extremities. ABDOMEN: Soft, non tender and non distended. No rebound or guarding, and no masses palpated. Bowel Sounds normal. MUSCULOSKELETAL: Good range of motion of all major joints. NEUROLOGIC EXAM: Alert and oriented x3. No focal neurologic deficits PSYCHIATRIC: Stable mood SKIN: No obvious lesions - Constitutional Vitals: Temp Pulse Resp BP Pulse Ox 97.5 F L 100 H 21 111/83 100 02/23/20 08:00 02/23/20 09:26 02/23/20 10:11 02/23/20 09:26 02/23/20 09:26 HEART Score - HEART Score Troponin: Troponin T < 0.010 ng/mL (0.00-0.029) 01/19/20 01:35 Results - Labs CBC & Chem 7: 02/22/20 08:06 02/22/20 08:06 Labs: Laboratory Last Values WBC 9.2 K/mm3 (4.5-11.0) 02/22/20 08:06 RBC 4.42 M/mm3 (3.65-5.03) 02/22/20 08:06 Hgb 10.8 gm/dl (11.8-15.2) L 02/22/20 08:06 Hct 35.2 % (35.5-45.6) L 02/22/20 08:06 MCV 80 fl (84-94) L 02/22/20 08:06 MCH 25 pg (28-32) L 02/22/20 08:06 MCHC 31 % (32-34) L 02/22/20 08:06 RDW 21.8 % (13.2-15.2) H 02/22/20 08:06 Plt Count 216 K/mm3 (140-440) 02/22/20 08:06 Lymph % (Auto) 19.0 % (13.4-35.0) 02/22/20 08:06 [place] % (Auto) 6.5 % (0.0-7.3) 02/22/20 08:06 Eos % (Auto) 2.1 % (0.0-4.3) 02/22/20 08:06 Baso % (Auto) 0.9 % (0.0-1.8) 02/22/20 08:06 Lymph # (Auto) 1.8 K/mm3 (1.2-5.4) 02/22/20 08:06 [place]aden # (Auto) 0.6 K/mm3 (0.0-0.8) 02/22/20 08:06 Eos # (Auto) 0.2 K/mm3 (0.0-0.4) 02/22/20 08:06 Baso # (Auto) 0.1 K/mm3 (0.0-0.1) 02/22/20 08:06 Add Manual Diff Complete 02/15/20 06:59 Total Counted 100 02/15/20 06:59 Seg Neutrophils % 71.5 % (40.0-70.0) H 02/22/20 08:06 Seg Neuts % (Manual) 58.0 % (40.0-70.0) 02/15/20 06:59 Band Neutrophils % 0 % 02/15/20 06:59 Lymphocytes % (Manual) 34.0 % (13.4-35.0) 02/15/20 06:59 Reactive Lymphs % (Man) 1.0 % 02/15/20 06:59 Monocytes % (Manual) 4.0 % (0.0-7.3) 02/15/20 06:59 Eosinophils % (Manual) 0 % (0.0-4.3) 02/15/20 06:59 Basophils % (Manual) 2.0 % (0.0-1.8) H 02/15/20 06:59 Metamyelocytes % 1.0 % 02/15/20 06:59 Myelocytes % 0 % 02/15/20 06:59 Promyelocytes % 0 % 02/15/20 06:59 Blast Cells % 0 % 02/15/20 06:59 Nucleated RBC % 1.0 % (0.0-0.9) H 02/15/20 06:59 Seg Neutrophils # 6.6 K/mm3 (1.8-7.7) 02/22/20 08:06 Seg Neutrophils # Man 5.9 K/mm3 (1.8-7.7) 02/15/20 06:59 Band Neutrophils # 0.0 K/mm3 02/15/20 06:59 Lymphocytes # (Manual) 3.5 K/mm3 (1.2-5.4) 02/15/20 06:59 Abs React Lymphs (Man) 0.1 K/mm3 02/15/20 06:59 Monocytes # (Manual) 0.4 K/mm3 (0.0-0.8) 02/15/20 06:59 Eosinophils # (Manual) 0.0 K/mm3 (0.0-0.4) 02/15/20 06:59 Basophils # (Manual) 0.2 K/mm3 (0.0-0.1) H 02/15/20 06:59 Metamyelocytes # 0.1 K/mm3 02/15/20 06:59 Myelocytes # 0.0 K/mm3 02/15/20 06:59 Promyelocytes # 0.0 K/mm3 02/15/20 06:59 Blast Cells # 0.0 K/mm3 02/15/20 06:59 WBC Morphology Not Reportable 02/15/20 06:59 Hypersegmented Neuts Not Reportable 02/15/20 06:59 Hyposegmented Neuts Not Reportable 02/15/20 06:59 Hypogranular Neuts Not Reportable 02/15/20 06:59 Smudge Cells Not Reportable 02/15/20 06:59 Toxic Granulation Not Reportable 02/15/20 06:59 Toxic Vacuolation Not Reportable 02/15/20 06:59 Dohle Bodies Not Reportable 02/15/20 06:59 Pelger-Huet Anomaly Not Reportable 02/15/20 06:59 Hector Rods Not Reportable 02/15/20 06:59 Platelet Estimate Consistent w auto 02/15/20 06:59 Clumped Platelets Not Reportable 02/15/20 06:59 Plt Clumps, EDTA Not Reportable 02/15/20 06:59 Large Platelets Not Reportable 02/15/20 06:59 Giant Platelets Not Reportable 02/15/20 06:59 Platelet Satelliting Not Reportable 02/15/20 06:59 Plt Morphology Comment Giant platelets 02/15/20 06:59 RBC Morphology Not Reportable 02/15/20 06:59 Dimorphic RBCs Not Reportable 02/15/20 06:59 Polychromasia Not Reportable 02/15/20 06:59 Hypochromasia 1+ 02/15/20 06:59 Poikilocytosis Few 02/15/20 06:59 Anisocytosis 1+ 02/15/20 06:59 Microcytosis Not Reportable 02/15/20 06:59 Macrocytosis Not Reportable 02/15/20 06:59 Spherocytes Not Reportable 02/15/20 06:59 Pappenheimer Bodies Not Reportable 02/15/20 06:59 Sickle Cells Not Reportable 02/15/20 06:59 Target Cells 1+ 02/15/20 06:59 Tear Drop Cells Few 02/15/20 06:59 Ovalocytes Not Reportable 02/15/20 06:59 Helmet Cells Not Reportable 02/15/20 06:59 Gottlieb-Paa-Ko Bodies Not Reportable 02/15/20 06:59 Marceline Rings Not Reportable 02/15/20 06:59 [place] Cells Not Reportable 02/15/20 06:59 Bite Cells Not Reportable 02/15/20 06:59 Crenated Cell Not Reportable 02/15/20 06:59 Elliptocytes Few 02/15/20 06:59 Acanthocytes (Spur) Not Reportable 02/15/20 06:59 Rouleaux Not Reportable 02/15/20 06:59 Hemoglobin C Crystals Not Reportable 02/15/20 06:59 Schistocytes Not Reportable 02/15/20 06:59 Malaria parasites Not Reportable 02/15/20 06:59 Clifford Bodies Not Reportable 02/15/20 06:59 Hem Pathologist Commnt No 02/15/20 06:59 PT 27.0 Sec. (12.2-14.9) H 02/07/20 15:03 INR 2.46 (0.87-1.13) H 02/07/20 15:03 APTT 31.5 Sec. (24.2-36.6) 01/22/20 09:58 Heparin Anti-Xa Level 1.34 U.I./ml (0.3-0.7) H 01/22/20 04:45 ABG pH 7.461 pH Units (7.350-7.450) H 02/20/20 06:45 POC ABG pCO2 34.8 mmHg (32.0-48.0) 02/11/20 14:11 ABG pCO2 47.8 mm Hg 02/20/20 06:45 POC ABG pO2 77.7 mmHg (83-108) L 02/11/20 14:11 ABG pO2 88.7 mm Hg (80.0-90.0) 02/20/20 06:45 POC ABG HCO3 26.7 02/11/20 14:11 ABG HCO3 33.3 mmol/L (20.0-26.0) H 02/20/20 06:45 ABG O2 Saturation 97.2 % (95.0-99.0) 02/20/20 06:45 ABG O2 Content 13.3 (0.0-44) 02/20/20 06:45 POC ABG Base Excess 3.6 02/11/20 14:11 ABG Base Excess 8.4 mmol/L (-2.0-3.0) H 02/20/20 06:45 ABG Hemoglobin 10.0 gm/dl (14.0-18.0) L 02/20/20 06:45 ABG Oxyhemoglobin 84 (94-98) L 12/22/19 03:22 ABG Carboxyhemoglobin 2.9 % (0.0-5.0) 02/20/20 06:45 ABG Methemoglobin 0.4 % (0.0-1.5) 02/20/20 06:45 ABG Sodium 144.7 mmol/L (136.0-145.0) 02/11/20 14:11 ABG Potassium 3.5 mmol/L (3.40-4.50) 02/11/20 14:11 ABG Chloride 108.0 mmol/L (98-107) H 02/11/20 14:11 ABG Glucose 151 mg/dL (65-95) H 02/11/20 14:11 Oxyhemoglobin 94.1 % (95.0-99.0) L 02/20/20 06:45 Carboxyhemoglobin 0.7 (0.5-1.5) 12/22/19 03:22 FiO2 30 % 02/20/20 06:45 Sodium 146 mmol/L (137-145) H 02/22/20 08:06 Potassium 3.7 mmol/L (3.6-5.0) 02/22/20 08:06 Chloride 106.1 mmol/L (98-107) 02/22/20 08:06 Carbon Dioxide 34 mmol/L (22-30) H 02/22/20 08:06 Anion Gap 10 mmol/L 02/22/20 08:06 BUN 21 mg/dL (9-20) H 02/22/20 08:06 Creatinine 0.4 mg/dL (0.8-1.3) L 02/22/20 08:06 Estimated GFR > 60 ml/min 02/22/20 08:06 BUN/Creatinine Ratio 53 % 02/22/20 08:06 Glucose 149 mg/dL (75-100) H 02/22/20 08:06 POC Glucose 144 mg/dL (70-105) H 02/23/20 05:22 Lactic Acid 1.60 mmol/L (0.7-2.0) 02/03/20 12:49 Calcium 9.5 mg/dL (8.4-10.2) 02/22/20 08:06 Ferritin 84.4 ng/mL (30.0-300.0) 11/24/19 04:53 Phosphorus 4.10 mg/dL (2.5-4.5) 01/31/20 19:24 Magnesium 2.40 mg/dL (1.7-2.3) H 02/10/20 07:40 Total Bilirubin 1.30 mg/dL (0.1-1.2) H 02/08/20 19:00 Direct Bilirubin 0.9 mg/dL (0-0.2) H 02/08/20 19:00 Indirect Bilirubin 0.4 mg/dL 02/08/20 19:00 Total Creatine Kinase 141 units/L (55-170) 11/24/19 02:53 CK-MB (CK-2) 4.3 ng/mL (0.0-4.0) H 11/24/19 02:53 AST 309 units/L (5-40) H 02/08/20 19:00 ALT 650 units/L (7-56) H 02/08/20 19:00 CK-MB (CK-2) Rel Index 3.0 (0-4) 11/24/19 02:53 Alkaline Phosphatase 109 units/L (35-129) 02/08/20 19:00 C-Reactive Protein 8.50 mg/dL (0.00-1.30) H 12/01/19 12:16 Ammonia 35.0 umol/L (25-60) 02/03/20 12:49 Lactate Dehydrogenase 228 units/L (91-180) H 12/19/19 04:45 Troponin T < 0.010 ng/mL (0.00-0.029) 01/19/20 01:35 NT-Pro-B Natriuret Pep 3866 pg/mL (0-900) H 01/01/20 10:40 Total Protein 6.2 g/dL (6.3-8.2) L 02/08/20 19:00 Albumin 2.7 g/dL (3.9-5) L 02/08/20 19:00 Albumin/Globulin Ratio 0.8 % 02/08/20 19:00 Procalcitonin 0.44 ng/mL (<0.15) 02/03/20 12:49 Arterial Blood Glucose 151 mg/dL (65-95) H 02/11/20 14:11 Arterial Blood Ionized Calcium 4.7 mg/dL (4.6-5.3) 02/11/20 14:11 Urine Color Cecy (Yellow) 12/31/19 18:04 Urine Turbidity Clear (Clear) 12/31/19 18:04 Urine pH 5.0 (5.0-7.0) 12/31/19 18:04 Ur Specific [place] 1.023 (1.003-1.030) 12/31/19 18:04 Urine Protein <15 mg/dl mg/dL (Negative) 12/31/19 18:04 Urine Glucose (UA) Neg mg/dL (Negative) 12/31/19 18:04 Urine Ketones Neg mg/dL (Negative) 12/31/19 18:04 Urine Blood Neg (Negative) 12/31/19 18:04 Urine Bacteria (Auto) 1+ /HPF (Negative) 12/03/19 06:03 Urine Nitrite Neg (Negative) 12/31/19 18:04 Urine Bilirubin Neg (Negative) 12/31/19 18:04 Urine Urobilinogen 4.0 mg/dL (<2.0) 12/31/19 18:04 Ur Leukocyte Esterase Neg (Negative) 12/31/19 18:04 Urine WBC (Auto) 2.0 /HPF (0.0-6.0) 12/31/19 18:04 Urine RBC (Auto) 3.0 /HPF (0.0-6.0) 12/31/19 18:04 U Epithel Cells (Auto) 2.0 /HPF (0-13.0) 12/31/19 18:04 Urine Mucus 1+ /HPF 12/31/19 18:04 Urine Creatinine 57.4 mg/dL (0.1-20.0) H 01/31/20 Unknown Urine Sodium 59 mmol/L 01/31/20 Unknown Vancomycin Trough 14.2 ug/mL (5.0-20.0) 12/13/19 15:01 Coronavirus (PCR) Negative (Negative) 12/29/19 10:07 Hepatitis A IgM Ab Non-reactive (NonReactive) 02/05/20 06:37 Hep Bs Antigen Non-reactive (Negative) 02/05/20 06:37 Hep B Core IgM Ab Non-reactive (NonReactive) 02/05/20 06:37 Hepatitis C Antibody Non-reactive (NonReactive) 02/05/20 06:37 Blood Type O POSITIVE 01/21/20 13:00 Antibody Screen Negative 01/21/20 13:00 - Diagnostic Impressions Diagnostic Impressions: Echocardiogram 11/29/19 07:37 Transthoracic Echocardiogram Indication: CHF BP: 116/72 HR: 33 Conclusions *The study is technically limited due to poor acoustic windows. *Global left ventricular systolic function is normal. *The estimated ejection fraction is 50-55%. *Mild concentric left ventricular hypertrophy is observed. *There is trace of mitral regurgitation. *There is mild tricuspid regurgitation. Findings Procedure Info: The study quality is poor. The study is technically limited due to poor acoustic windows. The study is technically limited due to patient body habitus. Left Ventricle: The left ventricular chamber size is normal. Mild concentric left ventricular hypertrophy is observed. Global left ventricular systolic function is normal. The estimated ejection fraction is 50-55%. Left Atrium: The left atrial chamber size is normal. Right Ventricle: The right ventricular cavity size is normal. Right Atrium: The right atrial cavity size is normal. Aortic Valve: The aortic valve leaflets are moderately thickened. There is trace of aortic regurgitation. There is no evidence of aortic stenosis. Mitral Valve: The mitral valve leaflets are mildly thickened. There is trace of mitral regurgitation. There is no evidence of mitral stenosis. Tricuspid Valve: There is mild tricuspid regurgitation. No pulmonary hypertension is noted. Pulmonic Valve: There is trace pulmonic regurgitation. Pericardium: There is no pericardial effusion. Aorta: There is no dilatation of the aortic root. Venous: The inferior vena cava appears normal in size. Contrast: Definity was used to optimize study. Intravenous contrast was used to enhance endocardial border definition. Measurements Chambers 2D Name Value Normal Range Ao root diameter (2D) 3.4 cm (2 - 3.7) Aortic Valve Name Value Normal Range AV Vmax 0.98 m/sec - AV VTI 16.76 cm - AV peak gradient 3.83 mmHg - AV mean gradient 2.57 mmHg - LVOT diameter 3.11 cm - LVOT Vmax 0.68 m/sec - LVOT VTI 11.52 cm - LVOT peak gradient 1.84 mmHg - LVOT mean gradient 1.27 mmHg - SV LVOT 87.31 ml - MALOU (continuity Vmax) 5.24 cm2 - MALOU (continuity VTI) 5.21 cm2 - Tricuspid Valve Name Value Normal Range IVC diameter 2.24 cm (1.2 - 2.3) Hoffman/IV: Voiding Method Indwelling Catheter IV Catheter Type [Left INT / Saline Lock Antecubital] IV Catheter Type [Right INT / Saline Lock Forearm] IV Catheter Type [Right Hand] Peripheral IV IV Catheter Type [Right Upper INT / Saline Lock arm] IV Catheter Type [Left Upper Mid-line arm] IV Catheter Type [Left Forearm INT / Saline Lock ] IV Catheter Type [Left Hand] Peripheral IV IV Catheter Type [Left Wrist] INT / Saline Lock IV Catheter Type [Right Peripheral IV Antecubital] Active Medications - Current Medications Current Medications: Generic Name Dose Route Start Last Admin Trade Name Freq PRN Reason Stop Dose Admin Acetaminophen 650 mg 12/31/19 11:43 02/19/20 17:01 Tylenol FEEDTUBE 650 mg Q6H PRN Administration Pain, Mild (1-3) Lipase/Protease/Amylase 1 each 01/09/20 12:01 Pancrepetr Betancourt 10,500 Unit FEEDTUBE PRN PRN For Clogged Feeding Tube Apixaban 5 mg 01/22/20 22:00 02/23/20 09:40 Eliquis PO 5 mg Q12HR CAR Administration Protocol Atorvastatin Calcium 40 mg 01/20/20 22:00 02/22/20 21:10 Lipitor PO 40 mg QHS CAR Administration Clopidogrel Bisulfate 75 mg 01/21/20 06:00 02/23/20 09:40 Plavix PO 75 mg QDAY CAR Administration Dextrose 50 ml 01/31/20 18:51 02/05/20 00:56 D50w (25gm) Syringe IV 50 ml Q30MIN PRN Administration Hypoglycemia Protocol Digoxin 0.125 mg 02/10/20 17:00 02/22/20 19:03 Lanoxin IV 0.125 mg DAILY@1700 [facility] Administration Docusate Sodium 100 mg 02/22/20 10:00 02/23/20 09:40 Colace FEEDTUBE 100 mg BID CAR Administration Glycopyrrolate 2 mg 02/20/20 20:00 02/23/20 09:40 Robinul PO 2 mg TID [facility] Administration Haloperidol Lactate 5 mg 02/10/20 14:20 02/17/20 04:49 Haldol IV 5 mg Q6H PRN Administration Agitation Hydrophilic Ointment 1 applic 01/17/20 15:26 Vaseline Lip Therapy TP DIRECT PRN Dry Lips Insulin Human Regular 0 unit 02/01/20 18:00 02/23/20 08:22 Humulin R SUB-Q Not Given Q6H [facility] Protocol Lansoprazole 30 mg 02/05/20 16:00 02/23/20 09:40 Prevacid Solutab FEEDTUBE 30 mg QDAY [facility] Administration Metoprolol Tartrate 5 mg 01/11/20 08:00 02/16/20 22:00 Metoprolol IV 5 mg Q6H PRN Administration SEE INSTRUCTIONS Midodrine 15 mg 02/04/20 16:00 02/23/20 09:40 Proamatine PO 15 mg TID@0800,1200,1600 [facility] Administration Morphine Sulfate 2 mg 01/06/20 15:41 02/23/20 10:11 Morphine IV 2 mg Q4H PRN Administration Pain, Moderate (4-6) Multi-Ingred Cream/Lotion/Oil/Oint 1 applic 02/01/20 15:52 Artificial Tears Ophth Oint OU Q4HR PRN Dry Eye(s) Nitroglycerin 0.4 mg 01/19/20 21:09 01/20/20 03:03 Nitrostat SL 0.4 mg .Q5MIN PRN Administration Chest Pain Ondansetron HCl 4 mg 01/05/20 14:37 02/16/20 17:25 Zofran IV 4 mg Q8H PRN Administration Nausea And Vomiting Polyethylene Glycol 17 gm 12/04/19 22:00 02/22/20 21:12 Miralax 3350 PO 17 gm QHS CAR Administration Quetiapine Fumarate 300 mg 01/13/20 22:00 02/23/20 09:40 Seroquel PO 300 mg BID CAR Administration Scopolamine 1 each 01/07/20 20:00 01/07/20 21:08 Transderm-Scop TD 1 each Q72HR CAR Administration Simple Syrup 15 ml 01/09/20 12:01 Simple Syrup FEEDTUBE PRN PRN Hypoglycemia Simple Syrup 30 ml 01/09/20 12:01 Simple Syrup FEEDTUBE PRN PRN Hypoglycemia Sodium Bicarbonate 325 mg 01/09/20 12:01 Sodium Bicarbonate FEEDTUBE PRN PRN For Clogged Feeding Tube Sodium Chloride 10 ml 11/24/19 10:00 02/23/20 09:41 Sodium Chloride Flush Syringe 10 Ml IV 10 ml BID CAR Administration Tamsulosin HCl 0.8 mg 12/20/19 22:00 02/22/20 21:11 Flomax PO 0.8 mg QHS CAR Administration Nutrition/Malnutrition Assess - Dietary Evaluation Nutrition/Malnutrition Findings: Nutrition Notes Start: 11/24/19 12:22 Freq: Status: Active Protocol: Document 02/19/20 09:28 LP (Rec: 02/19/20 09:30 LP [id number]) Nutrition Notes Initial or Follow up Reassessment Current Diagnosis Coronary Artery Disease,Heart Failure,Respiratory Failure, Stroke,Hyperlipidemia Other Pertinent Diagnosis Partial SBO, pneu Current Diet Vital AF 1.2 at 75ml/hr Labs/Tests Na 145 02/16/20 Pertinent Medications Reviewed Height 6 ft 2 in Weight 115.9 kg [place] Body Weight (kg) 86.36 BMI 32.8 Weight change and time frame Wt change noted. Weight Status Obese Subjective/Other Information Pt continues tolerating TF at goal. Na now WNL. 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 Yes Is Patient Ambulatory and/or Out of Bed No REE-([place]-St. Jeor-confined to bed) 2433.156 Kcal/Kg value to use for calculation 20 Approximate Energy Requirements Using 2318 kcal/Kg Calculation Used for Recommendations Kcal/kg Additional Notes Protein needs are 117-147g (1. 2-1.5 g/kg AdBW of 97.78kg) Fluid needs are 1.5L Nutrition Intervention Change Diet Order: Continue TF via PEG Nutrition Support: Vital AF 1.2 at 75ml/hr. increase Flush 250ml q4h for hypernatremia Flush 100ml q4h once hypernatremia is resolved Kcal 2,160 Protein (gm) 135 Fluid (mL) 1,460 Goal #1 Meet at least 75% of pt's energy and protein needs Goal #2 Weight maintenance Anticipated Discharge Needs: unable to determine at this time Follow-Up By: 02/26/20 Additional Comments Follow for stable TF
--- NOTE | 2020-02-23 12:31 | Progress Note ---
Assessment and Plan Acute hypoxemic respiratory failure Bilateral pneumonia, community acquired. Acute LLL branch P.E. Acute DVT Person under investigation for COVID-19 infection. Acute congestive heart failure exacerbation. History of cerebrovascular accident. Acute chronic obstructive pulmonary disease exacerbation. Hypertension and hypertensive urgency at presentation. History of arthritis. Leukocytosis. Lactic acidosis. Oropharyngeal dysphagia - continue to hold t-piece trials for now - quality control head to evaluate tube feed formula re: Nausea - repeat CXR and address - continue PSV trials as tolerated - continue to rest on AC qhs - continue Robinul & Scopolamine for secretion control - continue care as below otherwise; - daily SAT's and SBT assessment as tolerated - rate control per cardiology team - continue prn haldol for agitation to avoid hypoventilation (stopped Lorazepam) - continue Flomax - antiinfective's per ID rec's - Midodrine for BP support - prn mucomyst nebs re: secretions - continue full anticoagulation with Apixaban - continue seroquel for anxiolysis / delirium - COVID isolation per facility protocol - prn diuresis while following electrolytes / I's & O's - continue to wean oxygen for O2 sat's > 92% - continue bronchodilators with routine trach care and pulmonary hygiene per RT - continue Robinul & Scopolamine for secretion control - VAP bundle addressed (Aspiration precautions, HOB >40) - continue to wean per pulmonary driven protocols - sedation target is RASS 0 to -1 - continue prn analgesia per CPOT score - follow clinically re: fever curves / trend WBC - Avoid delirium (no benzodiazepines if they can be avoided) - Maintain sleep-wake cycle - enteral nutrition at goal rate as tolerated - continue accucheck's with glycemic control per SSI for target blood glucose goal of 140-180 mg/dL while critically ill; Avoid hypoglycemia - for VTE he is on IV Heparin - continue stress ulcer prophylaxis with Famotidine - continue mobility protocols for pressure ulcer prophylaxis - continue fall precautions - continue wound care management per RN / WCT - Supportive transfusions to keep HgB>7g/dL - CXR's and ABG's prn - Continue to monitor neurologic function - Continue chronic home medications - Continue all supportive care ........ re-evaluate in am & prn CONDITION: CRITICAL PROGNOSIS: GUARDED CODE STATUS: FULL CODE The high probability of a clinically significant, sudden or life threatening deterioration of the [Respiratory, cardiovascular & neurological] system(s) required my full and direct attention, intervention and personal management. The aggregate critical care time was [33] minutes without overlap. Time includes spent on [x] Data Review and interpretation [x] Patient assessment and monitoring of vital signs [x] Documentation [x] Medication orders and management Subjective Date of service: 02/23/20 Principal diagnosis: Ac hypoxemic resp failure; Pneumonia; PUI COVID-19; CHF; COPD; HTN Interval history: Patient is seen today for: Acute hypoxemic respiratory failure; [place]. Pneumonia (CAP); PUI COVID-19 infection; AE-CHF; AE-COPD; H/O CVA; HTN Seen and examined at bedside; 24 hour events reviewed; nursing and respiratory care staff consulted; no adverse overnight events reported to me; resting peacefully in bed; on SBT with p-supp at 10 cm H2O but he is complaining of air hunger essentially; also states that his current tube feeds are making him vomit and complains of nausea; no chest pain; afebrile Objective Vital Signs - 12hr 02/23/20 02/23/20 02/23/20 00:31 01:00 01:30 Temperature Pulse Rate 86 98 H 96 H Pulse Rate [ From Monitor] Respiratory 14 17 16 Rate Blood Pressure 114/80 113/81 123/81 O2 Sat by Pulse 94 95 95 Oximetry O2 Sat by Pulse Oximetry [ Assessment] 02/23/20 02/23/20 02/23/20 01:42 01:45 01:46 Temperature Pulse Rate 94 H 94 H Pulse Rate [ 102 H From Monitor] Respiratory 23 Rate Blood Pressure 123/81 O2 Sat by Pulse 99 96 99 Oximetry O2 Sat by Pulse Oximetry [ Assessment] 02/23/20 02/23/20 02/23/20 02:00 02:31 03:00 Temperature Pulse Rate 77 114 H 91 H Pulse Rate [ From Monitor] Respiratory 17 22 20 Rate Blood Pressure 121/83 124/91 118/84 O2 Sat by Pulse 97 97 Oximetry O2 Sat by Pulse Oximetry [ Assessment] 02/23/20 02/23/20 02/23/20 03:31 03:55 04:00 Temperature 98.2 F Pulse Rate 87 94 H 98 H Pulse Rate [ 100 H From Monitor] Respiratory 25 H 23 22 Rate Blood Pressure 107/75 111/82 O2 Sat by Pulse 98 96 98 Oximetry O2 Sat by Pulse Oximetry [ Assessment] 02/23/20 02/23/20 02/23/20 04:31 05:00 05:05 Temperature Pulse Rate 82 103 H Pulse Rate [ From Monitor] Respiratory 25 H 21 Rate Blood Pressure 110/86 105/87 O2 Sat by Pulse 96 95 Oximetry O2 Sat by Pulse 98 Oximetry [ Assessment] 02/23/20 02/23/20 02/23/20 05:06 05:30 06:01 Temperature Pulse Rate 101 H 94 H 95 H Pulse Rate [ From Monitor] Respiratory 19 20 Rate Blood Pressure 105/87 115/83 106/79 O2 Sat by Pulse 96 96 95 Oximetry O2 Sat by Pulse Oximetry [ Assessment] 02/23/20 02/23/20 02/23/20 06:30 07:01 07:30 Temperature Pulse Rate 101 H 90 94 H Pulse Rate [ From Monitor] Respiratory 16 17 16 Rate Blood Pressure 123/84 126/78 116/81 O2 Sat by Pulse 95 96 Oximetry O2 Sat by Pulse Oximetry [ Assessment] 02/23/20 02/23/20 02/23/20 08:00 08:30 09:00 Temperature 97.5 F L Pulse Rate 104 H 105 H 99 H Pulse Rate [ 90 From Monitor] Respiratory 20 22 20 Rate Blood Pressure 116/89 106/82 111/83 O2 Sat by Pulse 97 98 97 Oximetry O2 Sat by Pulse Oximetry [ Assessment] 02/23/20 02/23/20 02/23/20 09:26 09:30 10:00 Temperature Pulse Rate 100 H 106 H 107 H Pulse Rate [ From Monitor] Respiratory 18 18 25 H Rate Blood Pressure 111/83 113/92 115/97 O2 Sat by Pulse 100 99 94 Oximetry O2 Sat by Pulse Oximetry [ Assessment] 02/23/20 02/23/20 02/23/20 10:11 10:30 10:50 Temperature Pulse Rate 102 H Pulse Rate [ From Monitor] Respiratory 21 22 Rate Blood Pressure 110/81 O2 Sat by Pulse 94 Oximetry O2 Sat by Pulse 96 Oximetry [ Assessment] 02/23/20 02/23/20 02/23/20 11:01 11:31 12:00 Temperature Pulse Rate 113 H 97 H Pulse Rate [ 113 H From Monitor] Respiratory 22 18 23 Rate Blood Pressure 110/81 101/81 O2 Sat by Pulse 100 96 96 Oximetry O2 Sat by Pulse Oximetry [ Assessment] 02/23/20 12:01 Temperature Pulse Rate 104 H Pulse Rate [ From Monitor] Respiratory 21 Rate Blood Pressure 101/81 O2 Sat by Pulse 98 Oximetry O2 Sat by Pulse Oximetry [ Assessment] Constitutional: alert, other (elelelderly and obese male, normocephalic with mildly increased respiratory effort at rest) Eyes: non-icteric ENT: oropharynx moist, other (+ midline tracheostomy) Neck: supple, no JVD Effort: mildly labored Ascultation: Bilateral: diminished breath sounds, rhonchi, other (mild tracheal secretions ) Percussion: Bilateral: not dull Cardiovascular: irregular rhythm Gastrointestinal: normoactive bowel sounds, soft, non-tender, non-distended (protuberant), other (protuberant; PEG in place) Integumentary: normal Extremities: no cyanosis, pulses normal, no ischemia or petechiae, edema (bilateral lower) Neurologic: non-focal exam (moves extremities), pupils equal and round, other (intermittent agitation) Psychiatric: anxious CBC and BMP: 02/22/20 08:06 02/22/20 08:06 ABG, PT/INR, D-dimer: ABG ABG pH 7.461 pH Units (7.350-7.450) H 02/20/20 06:45 POC ABG pCO2 34.8 mmHg (32.0-48.0) 02/11/20 14:11 ABG pCO2 47.8 mm Hg 02/20/20 06:45 POC ABG pO2 77.7 mmHg (83-108) L 02/11/20 14:11 ABG pO2 88.7 mm Hg (80.0-90.0) 02/20/20 06:45 POC ABG HCO3 26.7 02/11/20 14:11 ABG O2 Saturation 97.2 % (95.0-99.0) 02/20/20 06:45 PT/INR, D-dimer PT 27.0 Sec. (12.2-14.9) H 02/07/20 15:03 INR 2.46 (0.87-1.13) H 02/07/20 15:03 Abnormal lab findings: Abnormal Labs 11/24/19 11/24/19 11/24/19 02:53 02:53 03:45 WBC 14.3 H RBC Hgb Hct MCHC RDW 17.2 H MCV MCH Lymph % (Auto) [place] % (Auto) [place] # Eos # Lymph # (Auto) [place] # (Auto) Eos # (Auto) Seg Neutrophils % Seg Neuts % (Manual) Baso # (Auto) Lymphocytes % (Manual) Monocytes % (Manual) Eosinophils % (Manual) Basophils % (Manual) Seg Neutrophils # Seg Neutrophils # Man 8.3 H Lymphocytes # (Manual) Monocytes # (Manual) 0.9 H Eosinophils # (Manual) Nucleated RBC % Basophils # (Manual) PT INR APTT Heparin Anti-Xa Level ABG pH 7.313 L POC ABG pO2 ABG pO2 102.8 H ABG HCO3 ABG O2 Saturation ABG Base Excess -2.9 L POC ABG pCO2 ABG Hemoglobin ABG Oxyhemoglobin ABG Chloride ABG Glucose Oxyhemoglobin 93.9 L Sodium Potassium Chloride Carbon Dioxide BUN Creatinine Glucose 195 H POC Glucose Lactic Acid Calcium Phosphorus Magnesium AST ALT Lactate Dehydrogenase Total Bilirubin Direct Bilirubin CK-MB (CK-2) 4.3 H C-Reactive Protein NT-Pro-B Natriuret Pep 1181 H Total Protein Albumin Arterial Blood Glucose Urine WBC (Auto) Urine Creatinine 11/24/19 11/24/19 11/24/19 04:53 04:53 10:37 WBC RBC Hgb Hct MCHC RDW MCV MCH Lymph % (Auto) [place] % (Auto) [place] # Eos # Lymph # (Auto) [place] # (Auto) Eos # (Auto) Seg Neutrophils % Seg Neuts % (Manual) Baso # (Auto) Lymphocytes % (Manual) Monocytes % (Manual) Eosinophils % (Manual) Basophils % (Manual) Seg Neutrophils # Seg Neutrophils # Man Lymphocytes # (Manual) Monocytes # (Manual) Eosinophils # (Manual) Nucleated RBC % Basophils # (Manual) PT INR APTT Heparin Anti-Xa Level ABG pH POC ABG pO2 ABG pO2 ABG HCO3 ABG O2 Saturation ABG Base Excess POC ABG pCO2 ABG Hemoglobin ABG Oxyhemoglobin ABG Chloride ABG Glucose Oxyhemoglobin Sodium Potassium Chloride Carbon Dioxide BUN Creatinine Glucose 162 H POC Glucose Lactic Acid 2.40 H* 2.50 H* Calcium Phosphorus Magnesium AST ALT Lactate Dehydrogenase 240 H Total Bilirubin Direct Bilirubin CK-MB (CK-2) C-Reactive Protein NT-Pro-B Natriuret Pep Total Protein Albumin Arterial Blood Glucose Urine WBC (Auto) Urine Creatinine 11/24/19 11/24/19 11/24/19 12:21 14:50 19:54 WBC RBC Hgb Hct MCHC RDW MCV MCH Lymph % (Auto) [place] % (Auto) [place] # Eos # Lymph # (Auto) [place] # (Auto) Eos # (Auto) Seg Neutrophils % Seg Neuts % (Manual) Baso # (Auto) Lymphocytes % (Manual) Monocytes % (Manual) Eosinophils % (Manual) Basophils % (Manual) Seg Neutrophils # Seg Neutrophils # Man Lymphocytes # (Manual) Monocytes # (Manual) Eosinophils # (Manual) Nucleated RBC % Basophils # (Manual) PT INR APTT Heparin Anti-Xa Level ABG pH POC ABG pO2 ABG pO2 ABG HCO3 ABG O2 Saturation ABG Base Excess POC ABG pCO2 ABG Hemoglobin ABG Oxyhemoglobin ABG Chloride ABG Glucose Oxyhemoglobin Sodium Potassium Chloride Carbon Dioxide BUN Creatinine Glucose POC Glucose 145 H 143 H 124 H Lactic Acid Calcium Phosphorus Magnesium AST ALT Lactate Dehydrogenase Total Bilirubin Direct Bilirubin CK-MB (CK-2) C-Reactive Protein NT-Pro-B Natriuret Pep Total Protein Albumin Arterial Blood Glucose Urine WBC (Auto) Urine Creatinine 11/25/19 11/25/19 11/25/19 00:18 03:18 05:11 WBC 13.7 H RBC Hgb Hct MCHC RDW 17.1 H MCV MCH Lymph % (Auto) 10.8 L [place] % (Auto) 8.7 H [place] # 1.2 H Eos # Lymph # (Auto) [place] # (Auto) Eos # (Auto) Seg Neutrophils % 80.2 H Seg Neuts % (Manual) Baso # (Auto) Lymphocytes % (Manual) Monocytes % (Manual) Eosinophils % (Manual) Basophils % (Manual) Seg Neutrophils # 11.0 H Seg Neutrophils # Man Lymphocytes # (Manual) Monocytes # (Manual) Eosinophils # (Manual) Nucleated RBC % Basophils # (Manual) PT INR APTT Heparin Anti-Xa Level ABG pH 7.333 L POC ABG pO2 ABG pO2 61.2 L ABG HCO3 ABG O2 Saturation 90.2 L ABG Base Excess POC ABG pCO2 ABG Hemoglobin 13.7 L ABG Oxyhemoglobin ABG Chloride ABG Glucose Oxyhemoglobin 88.2 L Sodium Potassium Chloride Carbon Dioxide BUN Creatinine Glucose POC Glucose 109 H Lactic Acid Calcium Phosphorus Magnesium AST ALT Lactate Dehydrogenase Total Bilirubin Direct Bilirubin CK-MB (CK-2) C-Reactive Protein NT-Pro-B Natriuret Pep Total Protein Albumin Arterial Blood Glucose Urine WBC (Auto) Urine Creatinine 11/25/19 11/25/19 11/26/19 05:11 11:40 03:12 WBC RBC Hgb Hct MCHC RDW MCV MCH Lymph % (Auto) [place] % (Auto) [place] # Eos # Lymph # (Auto) [place] # (Auto) Eos # (Auto) Seg Neutrophils % Seg Neuts % (Manual) Baso # (Auto) Lymphocytes % (Manual) Monocytes % (Manual) Eosinophils % (Manual) Basophils % (Manual) Seg Neutrophils # Seg Neutrophils # Man Lymphocytes # (Manual) Monocytes # (Manual) Eosinophils # (Manual) Nucleated RBC % Basophils # (Manual) PT INR APTT Heparin Anti-Xa Level ABG pH POC ABG pO2 ABG pO2 155.1 H ABG HCO3 27.8 H ABG O2 Saturation ABG Base Excess POC ABG pCO2 ABG Hemoglobin 12.2 L ABG Oxyhemoglobin ABG Chloride ABG Glucose Oxyhemoglobin Sodium Potassium Chloride Carbon Dioxide BUN 23 H Creatinine Glucose 110 H POC Glucose 108 H Lactic Acid Calcium Phosphorus Magnesium AST ALT Lactate Dehydrogenase Total Bilirubin Direct Bilirubin CK-MB (CK-2) C-Reactive Protein NT-Pro-B Natriuret Pep Total Protein Albumin Arterial Blood Glucose Urine WBC (Auto) Urine Creatinine 11/26/19 11/26/19 11/26/19 06:17 10:43 10:43 WBC 11.4 H RBC Hgb Hct MCHC RDW 17.1 H MCV MCH Lymph % (Auto) [place] % (Auto) [place] # Eos # Lymph # (Auto) [place] # (Auto) Eos # (Auto) Seg Neutrophils % Seg Neuts % (Manual) Baso # (Auto) Lymphocytes % (Manual) Monocytes % (Manual) Eosinophils % (Manual) Basophils % (Manual) Seg Neutrophils # Seg Neutrophils # Man Lymphocytes # (Manual) Monocytes # (Manual) Eosinophils # (Manual) Nucleated RBC % Basophils # (Manual) PT INR APTT Heparin Anti-Xa Level ABG pH POC ABG pO2 ABG pO2 ABG HCO3 ABG O2 Saturation ABG Base Excess POC ABG pCO2 ABG Hemoglobin ABG Oxyhemoglobin ABG Chloride ABG Glucose Oxyhemoglobin Sodium Potassium Chloride Carbon Dioxide BUN 29 H Creatinine Glucose POC Glucose 107 H Lactic Acid Calcium Phosphorus Magnesium AST ALT Lactate Dehydrogenase Total Bilirubin Direct Bilirubin CK-MB (CK-2) C-Reactive Protein NT-Pro-B Natriuret Pep Total Protein Albumin Arterial Blood Glucose Urine WBC (Auto) Urine Creatinine 11/26/19 11/27/19 11/27/19 17:11 01:53 04:11 WBC RBC Hgb Hct MCHC RDW MCV MCH Lymph % (Auto) [place] % (Auto) [place] # Eos # Lymph # (Auto) [place] # (Auto) Eos # (Auto) Seg Neutrophils % Seg Neuts % (Manual) Baso # (Auto) Lymphocytes % (Manual) Monocytes % (Manual) Eosinophils % (Manual) Basophils % (Manual) Seg Neutrophils # Seg Neutrophils # Man Lymphocytes # (Manual) Monocytes # (Manual) Eosinophils # (Manual) Nucleated RBC % Basophils # (Manual) PT INR APTT Heparin Anti-Xa Level ABG pH POC ABG pO2 ABG pO2 ABG HCO3 29.2 H ABG O2 Saturation ABG Base Excess 3.4 H POC ABG pCO2 ABG Hemoglobin 13.3 L ABG Oxyhemoglobin ABG Chloride ABG Glucose Oxyhemoglobin 94.5 L Sodium Potassium Chloride Carbon Dioxide BUN Creatinine Glucose POC Glucose 113 H 108 H Lactic Acid Calcium Phosphorus Magnesium AST ALT Lactate Dehydrogenase Total Bilirubin Direct Bilirubin CK-MB (CK-2) C-Reactive Protein NT-Pro-B Natriuret Pep Total Protein Albumin Arterial Blood Glucose Urine WBC (Auto) Urine Creatinine 11/27/19 11/28/19 11/28/19 05:27 05:00 05:25 WBC RBC Hgb Hct MCHC RDW MCV MCH Lymph % (Auto) [place] % (Auto) [place] # Eos # Lymph # (Auto) [place] # (Auto) Eos # (Auto) Seg Neutrophils % Seg Neuts % (Manual) Baso # (Auto) Lymphocytes % (Manual) Monocytes % (Manual) Eosinophils % (Manual) Basophils % (Manual) Seg Neutrophils # Seg Neutrophils # Man Lymphocytes # (Manual) Monocytes # (Manual) Eosinophils # (Manual) Nucleated RBC % Basophils # (Manual) PT INR APTT Heparin Anti-Xa Level ABG pH POC ABG pO2 68.1 L ABG pO2 ABG HCO3 ABG O2 Saturation ABG Base Excess POC ABG pCO2 ABG Hemoglobin ABG Oxyhemoglobin 91.2 L ABG Chloride ABG Glucose Oxyhemoglobin Sodium Potassium Chloride Carbon Dioxide BUN Creatinine Glucose POC Glucose 111 H 110 H Lactic Acid Calcium Phosphorus Magnesium AST ALT Lactate Dehydrogenase Total Bilirubin Direct Bilirubin CK-MB (CK-2) C-Reactive Protein NT-Pro-B Natriuret Pep Total Protein Albumin Arterial Blood Glucose Urine WBC (Auto) Urine Creatinine 11/28/19 11/28/19 11/28/19 12:08 13:47 13:47 WBC 11.3 H RBC Hgb Hct MCHC RDW 16.1 H MCV MCH Lymph % (Auto) [place] % (Auto) 9.9 H [place] # 1.1 H Eos # Lymph # (Auto) [place] # (Auto) Eos # (Auto) Seg Neutrophils % 71.4 H Seg Neuts % (Manual) Baso # (Auto) Lymphocytes % (Manual) Monocytes % (Manual) Eosinophils % (Manual) Basophils % (Manual) Seg Neutrophils # 8.1 H Seg Neutrophils # Man Lymphocytes # (Manual) Monocytes # (Manual) Eosinophils # (Manual) Nucleated RBC % Basophils # (Manual) PT INR APTT Heparin Anti-Xa Level ABG pH POC ABG pO2 ABG pO2 ABG HCO3 ABG O2 Saturation ABG Base Excess POC ABG pCO2 ABG Hemoglobin ABG Oxyhemoglobin ABG Chloride ABG Glucose Oxyhemoglobin Sodium Potassium Chloride Carbon Dioxide BUN 23 H Creatinine Glucose 123 H POC Glucose 112 H Lactic Acid Calcium Phosphorus Magnesium AST ALT Lactate Dehydrogenase Total Bilirubin Direct Bilirubin CK-MB (CK-2) C-Reactive Protein NT-Pro-B Natriuret Pep Total Protein Albumin 3.7 L Arterial Blood Glucose Urine WBC (Auto) Urine Creatinine 11/28/19 11/29/19 11/29/19 17:26 03:55 17:04 WBC RBC Hgb Hct MCHC RDW MCV MCH Lymph % (Auto) [place] % (Auto) [place] # Eos # Lymph # (Auto) [place] # (Auto) Eos # (Auto) Seg Neutrophils % Seg Neuts % (Manual) Baso # (Auto) Lymphocytes % (Manual) Monocytes % (Manual) Eosinophils % (Manual) Basophils % (Manual) Seg Neutrophils # Seg Neutrophils # Man Lymphocytes # (Manual) Monocytes # (Manual) Eosinophils # (Manual) Nucleated RBC % Basophils # (Manual) PT INR APTT Heparin Anti-Xa Level ABG pH POC ABG pO2 ABG pO2 65.7 L ABG HCO3 28.3 H ABG O2 Saturation 93.9 L ABG Base Excess 3.6 H POC ABG pCO2 ABG Hemoglobin 13.3 L ABG Oxyhemoglobin ABG Chloride ABG Glucose Oxyhemoglobin 91.5 L Sodium Potassium Chloride Carbon Dioxide BUN Creatinine Glucose POC Glucose 123 H 119 H Lactic Acid Calcium Phosphorus Magnesium AST ALT Lactate Dehydrogenase Total Bilirubin Direct Bilirubin CK-MB (CK-2) C-Reactive Protein NT-Pro-B Natriuret Pep Total Protein Albumin Arterial Blood Glucose Urine WBC (Auto) Urine Creatinine 11/30/19 11/30/19 11/30/19 04:17 04:17 04:56 WBC 13.4 H RBC Hgb Hct MCHC RDW 15.6 H MCV MCH Lymph % (Auto) [place] % (Auto) [place] # Eos # Lymph # (Auto) [place] # (Auto) Eos # (Auto) Seg Neutrophils % Seg Neuts % (Manual) Baso # (Auto) Lymphocytes % (Manual) Monocytes % (Manual) Eosinophils % (Manual) Basophils % (Manual) Seg Neutrophils # Seg Neutrophils # Man Lymphocytes # (Manual) Monocytes # (Manual) Eosinophils # (Manual) Nucleated RBC % Basophils # (Manual) PT INR APTT Heparin Anti-Xa Level ABG pH POC ABG pO2 ABG pO2 56.3 L ABG HCO3 29.3 H ABG O2 Saturation 91.5 L ABG Base Excess 4.7 H POC ABG pCO2 ABG Hemoglobin 12.1 L ABG Oxyhemoglobin ABG Chloride ABG Glucose Oxyhemoglobin 89.2 L Sodium 147 H Potassium Chloride Carbon Dioxide BUN 30 H Creatinine Glucose 124 H POC Glucose Lactic Acid Calcium Phosphorus Magnesium AST ALT Lactate Dehydrogenase Total Bilirubin Direct Bilirubin CK-MB (CK-2) C-Reactive Protein NT-Pro-B Natriuret Pep Total Protein Albumin 3.8 L Arterial Blood Glucose Urine WBC (Auto) Urine Creatinine 11/30/19 11/30/19 11/30/19 05:51 11:54 18:17 WBC RBC Hgb Hct MCHC RDW MCV MCH Lymph % (Auto) [place] % (Auto) [place] # Eos # Lymph # (Auto) [place] # (Auto) Eos # (Auto) Seg Neutrophils % Seg Neuts % (Manual) Baso # (Auto) Lymphocytes % (Manual) Monocytes % (Manual) Eosinophils % (Manual) Basophils % (Manual) Seg Neutrophils # Seg Neutrophils # Man Lymphocytes # (Manual) Monocytes # (Manual) Eosinophils # (Manual) Nucleated RBC % Basophils # (Manual) PT INR APTT Heparin Anti-Xa Level ABG pH POC ABG pO2 ABG pO2 ABG HCO3 ABG O2 Saturation ABG Base Excess POC ABG pCO2 ABG Hemoglobin ABG Oxyhemoglobin ABG Chloride ABG Glucose Oxyhemoglobin Sodium Potassium Chloride Carbon Dioxide BUN Creatinine Glucose POC Glucose 127 H 115 H 143 H Lactic Acid Calcium Phosphorus Magnesium AST ALT Lactate Dehydrogenase Total Bilirubin Direct Bilirubin CK-MB (CK-2) C-Reactive Protein NT-Pro-B Natriuret Pep Total Protein Albumin Arterial Blood Glucose Urine WBC (Auto) Urine Creatinine 12/01/19 12/01/19 12/01/19 01:18 05:22 12:16 WBC RBC Hgb Hct MCHC RDW MCV MCH Lymph % (Auto) [place] % (Auto) [place] # Eos # Lymph # (Auto) [place] # (Auto) Eos # (Auto) Seg Neutrophils % Seg Neuts % (Manual) Baso # (Auto) Lymphocytes % (Manual) Monocytes % (Manual) Eosinophils % (Manual) Basophils % (Manual) Seg Neutrophils # Seg Neutrophils # Man Lymphocytes # (Manual) Monocytes # (Manual) Eosinophils # (Manual) Nucleated RBC % Basophils # (Manual) PT INR APTT Heparin Anti-Xa Level ABG pH POC ABG pO2 ABG pO2 ABG HCO3 ABG O2 Saturation ABG Base Excess POC ABG pCO2 ABG Hemoglobin ABG Oxyhemoglobin ABG Chloride ABG Glucose Oxyhemoglobin Sodium Potassium 3.5 L Chloride 107.8 H Carbon Dioxide BUN 37 H Creatinine Glucose 157 H POC Glucose 118 H 148 H Lactic Acid Calcium 8.2 L D Phosphorus Magnesium AST 48 H ALT 60 H Lactate Dehydrogenase 194 H Total Bilirubin Direct Bilirubin CK-MB (CK-2) C-Reactive Protein 8.50 H NT-Pro-B Natriuret Pep Total Protein 5.5 L Albumin 2.8 L Arterial Blood Glucose Urine WBC (Auto) Urine Creatinine 12/01/19 12/02/19 12/02/19 18:04 00:05 05:16 WBC 11.4 H RBC Hgb Hct MCHC RDW 15.9 H MCV MCH Lymph % (Auto) [place] % (Auto) 9.9 H [place] # 1.1 H Eos # Lymph # (Auto) [place] # (Auto) Eos # (Auto) Seg Neutrophils % 70.3 H Seg Neuts % (Manual) Baso # (Auto) Lymphocytes % (Manual) Monocytes % (Manual) Eosinophils % (Manual) Basophils % (Manual) Seg Neutrophils # 8.0 H Seg Neutrophils # Man Lymphocytes # (Manual) Monocytes # (Manual) Eosinophils # (Manual) Nucleated RBC % Basophils # (Manual) PT INR APTT Heparin Anti-Xa Level ABG pH POC ABG pO2 ABG pO2 ABG HCO3 ABG O2 Saturation ABG Base Excess POC ABG pCO2 ABG Hemoglobin ABG Oxyhemoglobin ABG Chloride ABG Glucose Oxyhemoglobin Sodium Potassium Chloride Carbon Dioxide BUN Creatinine Glucose POC Glucose 143 H 107 H Lactic Acid Calcium Phosphorus Magnesium AST ALT Lactate Dehydrogenase Total Bilirubin Direct Bilirubin CK-MB (CK-2) C-Reactive Protein NT-Pro-B Natriuret Pep Total Protein Albumin Arterial Blood Glucose Urine WBC (Auto) Urine Creatinine 12/02/19 12/02/19 12/02/19 05:16 06:03 11:52 WBC RBC Hgb Hct MCHC RDW MCV MCH Lymph % (Auto) [place] % (Auto) [place] # Eos # Lymph # (Auto) [place] # (Auto) Eos # (Auto) Seg Neutrophils % Seg Neuts % (Manual) Baso # (Auto) Lymphocytes % (Manual) Monocytes % (Manual) Eosinophils % (Manual) Basophils % (Manual) Seg Neutrophils # Seg Neutrophils # Man Lymphocytes # (Manual) Monocytes # (Manual) Eosinophils # (Manual) Nucleated RBC % Basophils # (Manual) PT INR APTT Heparin Anti-Xa Level ABG pH POC ABG pO2 ABG pO2 ABG HCO3 ABG O2 Saturation ABG Base Excess POC ABG pCO2 ABG Hemoglobin ABG Oxyhemoglobin ABG Chloride ABG Glucose Oxyhemoglobin Sodium 146 H Potassium Chloride Carbon Dioxide BUN 28 H Creatinine Glucose 123 H POC Glucose 110 H 152 H Lactic Acid Calcium Phosphorus Magnesium AST ALT Lactate Dehydrogenase Total Bilirubin Direct Bilirubin CK-MB (CK-2) C-Reactive Protein NT-Pro-B Natriuret Pep Total Protein Albumin Arterial Blood Glucose Urine WBC (Auto) Urine Creatinine 12/02/19 12/02/19 12/02/19 12:58 17:58 23:36 WBC RBC Hgb Hct MCHC RDW MCV MCH Lymph % (Auto) [place] % (Auto) [place] # Eos # Lymph # (Auto) [place] # (Auto) Eos # (Auto) Seg Neutrophils % Seg Neuts % (Manual) Baso # (Auto) Lymphocytes % (Manual) Monocytes % (Manual) Eosinophils % (Manual) Basophils % (Manual) Seg Neutrophils # Seg Neutrophils # Man Lymphocytes # (Manual) Monocytes # (Manual) Eosinophils # (Manual) Nucleated RBC % Basophils # (Manual) PT INR APTT Heparin Anti-Xa Level ABG pH POC ABG pO2 78.1 L ABG pO2 ABG HCO3 ABG O2 Saturation ABG Base Excess POC ABG pCO2 ABG Hemoglobin ABG Oxyhemoglobin ABG Chloride ABG Glucose Oxyhemoglobin Sodium Potassium Chloride Carbon Dioxide BUN Creatinine Glucose POC Glucose 120 H 123 H Lactic Acid Calcium Phosphorus Magnesium AST ALT Lactate Dehydrogenase Total Bilirubin Direct Bilirubin CK-MB (CK-2) C-Reactive Protein NT-Pro-B Natriuret Pep Total Protein Albumin Arterial Blood Glucose Urine WBC (Auto) Urine Creatinine 12/03/19 12/03/19 12/03/19 06:03 06:14 11:46 WBC RBC Hgb Hct MCHC RDW MCV MCH Lymph % (Auto) [place] % (Auto) [place] # Eos # Lymph # (Auto) [place] # (Auto) Eos # (Auto) Seg Neutrophils % Seg Neuts % (Manual) Baso # (Auto) Lymphocytes % (Manual) Monocytes % (Manual) Eosinophils % (Manual) Basophils % (Manual) Seg Neutrophils # Seg Neutrophils # Man Lymphocytes # (Manual) Monocytes # (Manual) Eosinophils # (Manual) Nucleated RBC % Basophils # (Manual) PT INR APTT Heparin Anti-Xa Level ABG pH POC ABG pO2 ABG pO2 ABG HCO3 ABG O2 Saturation ABG Base Excess POC ABG pCO2 ABG Hemoglobin ABG Oxyhemoglobin ABG Chloride ABG Glucose Oxyhemoglobin Sodium Potassium Chloride Carbon Dioxide BUN Creatinine Glucose POC Glucose 142 H 130 H Lactic Acid Calcium Phosphorus Magnesium AST ALT Lactate Dehydrogenase Total Bilirubin Direct Bilirubin CK-MB (CK-2) C-Reactive Protein NT-Pro-B Natriuret Pep Total Protein Albumin Arterial Blood Glucose Urine WBC (Auto) 8.0 H Urine Creatinine 12/03/19 12/03/19 12/04/19 15:50 17:39 00:04 WBC RBC Hgb Hct MCHC RDW MCV MCH Lymph % (Auto) [place] % (Auto) [place] # Eos # Lymph # (Auto) [place] # (Auto) Eos # (Auto) Seg Neutrophils % Seg Neuts % (Manual) Baso # (Auto) Lymphocytes % (Manual) Monocytes % (Manual) Eosinophils % (Manual) Basophils % (Manual) Seg Neutrophils # Seg Neutrophils # Man Lymphocytes # (Manual) Monocytes # (Manual) Eosinophils # (Manual) Nucleated RBC % Basophils # (Manual) PT INR APTT Heparin Anti-Xa Level ABG pH POC ABG pO2 ABG pO2 ABG HCO3 ABG O2 Saturation ABG Base Excess POC ABG pCO2 ABG Hemoglobin ABG Oxyhemoglobin ABG Chloride ABG Glucose Oxyhemoglobin Sodium Potassium Chloride Carbon Dioxide BUN Creatinine Glucose POC Glucose 146 H 133 H Lactic Acid Calcium Phosphorus 2.40 L Magnesium AST ALT Lactate Dehydrogenase Total Bilirubin Direct Bilirubin CK-MB (CK-2) C-Reactive Protein NT-Pro-B Natriuret Pep Total Protein Albumin Arterial Blood Glucose Urine WBC (Auto) Urine Creatinine 12/04/19 12/04/19 12/04/19 03:58 03:58 05:22 WBC 12.5 H RBC Hgb 11.2 L Hct 35.2 L MCHC RDW 16.0 H MCV MCH Lymph % (Auto) [place] % (Auto) 9.6 H [place] # 1.2 H Eos # 0.5 H Lymph # (Auto) [place] # (Auto) Eos # (Auto) Seg Neutrophils % Seg Neuts % (Manual) Baso # (Auto) Lymphocytes % (Manual) Monocytes % (Manual) Eosinophils % (Manual) Basophils % (Manual) Seg Neutrophils # 8.6 H Seg Neutrophils # Man Lymphocytes # (Manual) Monocytes # (Manual) Eosinophils # (Manual) Nucleated RBC % Basophils # (Manual) PT INR APTT Heparin Anti-Xa Level ABG pH POC ABG pO2 ABG pO2 ABG HCO3 ABG O2 Saturation ABG Base Excess POC ABG pCO2 ABG Hemoglobin ABG Oxyhemoglobin ABG Chloride ABG Glucose Oxyhemoglobin Sodium 146 H Potassium Chloride 108.6 H Carbon Dioxide BUN 30 H Creatinine 0.7 L Glucose 121 H POC Glucose 132 H Lactic Acid Calcium Phosphorus Magnesium AST ALT Lactate Dehydrogenase Total Bilirubin Direct Bilirubin CK-MB (CK-2) C-Reactive Protein NT-Pro-B Natriuret Pep Total Protein Albumin Arterial Blood Glucose Urine WBC (Auto) Urine Creatinine 12/04/19 12/04/19 12/05/19 13:26 18:43 00:19 WBC RBC Hgb Hct MCHC RDW MCV MCH Lymph % (Auto) [place] % (Auto) [place] # Eos # Lymph # (Auto) [place] # (Auto) Eos # (Auto) Seg Neutrophils % Seg Neuts % (Manual) Baso # (Auto) Lymphocytes % (Manual) Monocytes % (Manual) Eosinophils % (Manual) Basophils % (Manual) Seg Neutrophils # Seg Neutrophils # Man Lymphocytes # (Manual) Monocytes # (Manual) Eosinophils # (Manual) Nucleated RBC % Basophils # (Manual) PT INR APTT Heparin Anti-Xa Level ABG pH POC ABG pO2 ABG pO2 ABG HCO3 ABG O2 Saturation ABG Base Excess POC ABG pCO2 ABG Hemoglobin ABG Oxyhemoglobin ABG Chloride ABG Glucose Oxyhemoglobin Sodium Potassium Chloride Carbon Dioxide BUN Creatinine Glucose POC Glucose 185 H 156 H 150 H Lactic Acid Calcium Phosphorus Magnesium AST ALT Lactate Dehydrogenase Total Bilirubin Direct Bilirubin CK-MB (CK-2) C-Reactive Protein NT-Pro-B Natriuret Pep Total Protein Albumin Arterial Blood Glucose Urine WBC (Auto) Urine Creatinine 12/05/19 12/05/19 12/05/19 03:37 03:37 05:14 WBC 16.3 H RBC Hgb 11.4 L Hct MCHC RDW 15.6 H MCV MCH Lymph % (Auto) 9.9 L [place] % (Auto) 9.7 H [place] # 1.6 H Eos # Lymph # (Auto) [place] # (Auto) Eos # (Auto) Seg Neutrophils % 78.0 H Seg Neuts % (Manual) Baso # (Auto) Lymphocytes % (Manual) Monocytes % (Manual) Eosinophils % (Manual) Basophils % (Manual) Seg Neutrophils # 12.7 H Seg Neutrophils # Man Lymphocytes # (Manual) Monocytes # (Manual) Eosinophils # (Manual) Nucleated RBC % Basophils # (Manual) PT INR APTT Heparin Anti-Xa Level ABG pH POC ABG pO2 ABG pO2 ABG HCO3 ABG O2 Saturation ABG Base Excess POC ABG pCO2 ABG Hemoglobin ABG Oxyhemoglobin ABG Chloride ABG Glucose Oxyhemoglobin Sodium 146 H Potassium Chloride 107.2 H Carbon Dioxide BUN 27 H Creatinine 0.7 L Glucose 171 H POC Glucose 168 H Lactic Acid Calcium Phosphorus Magnesium AST ALT Lactate Dehydrogenase Total Bilirubin Direct Bilirubin CK-MB (CK-2) C-Reactive Protein NT-Pro-B Natriuret Pep Total Protein Albumin Arterial Blood Glucose Urine WBC (Auto) Urine Creatinine 12/05/19 12/05/19 12/05/19 12:31 18:10 23:58 WBC RBC Hgb Hct MCHC RDW MCV MCH Lymph % (Auto) [place] % (Auto) [place] # Eos # Lymph # (Auto) [place] # (Auto) Eos # (Auto) Seg Neutrophils % Seg Neuts % (Manual) Baso # (Auto) Lymphocytes % (Manual) Monocytes % (Manual) Eosinophils % (Manual) Basophils % (Manual) Seg Neutrophils # Seg Neutrophils # Man Lymphocytes # (Manual) Monocytes # (Manual) Eosinophils # (Manual) Nucleated RBC % Basophils # (Manual) PT INR APTT Heparin Anti-Xa Level ABG pH POC ABG pO2 ABG pO2 ABG HCO3 ABG O2 Saturation ABG Base Excess POC ABG pCO2 ABG Hemoglobin ABG Oxyhemoglobin ABG Chloride ABG Glucose Oxyhemoglobin Sodium Potassium Chloride Carbon Dioxide BUN Creatinine Glucose POC Glucose 159 H 198 H 115 H Lactic Acid Calcium Phosphorus Magnesium AST ALT Lactate Dehydrogenase Total Bilirubin Direct Bilirubin CK-MB (CK-2) C-Reactive Protein NT-Pro-B Natriuret Pep Total Protein Albumin Arterial Blood Glucose Urine WBC (Auto) Urine Creatinine 12/06/19 12/06/19 12/06/19 05:24 05:24 05:25 WBC 14.9 H RBC Hgb 10.8 L Hct 34.0 L MCHC RDW 15.6 H MCV MCH Lymph % (Auto) 10.7 L [place] % (Auto) 8.3 H [place] # 1.2 H Eos # Lymph # (Auto) [place] # (Auto) Eos # (Auto) Seg Neutrophils % 78.7 H Seg Neuts % (Manual) Baso # (Auto) Lymphocytes % (Manual) Monocytes % (Manual) Eosinophils % (Manual) Basophils % (Manual) Seg Neutrophils # 11.7 H Seg Neutrophils # Man Lymphocytes # (Manual) Monocytes # (Manual) Eosinophils # (Manual) Nucleated RBC % Basophils # (Manual) PT INR APTT Heparin Anti-Xa Level ABG pH POC ABG pO2 ABG pO2 ABG HCO3 ABG O2 Saturation ABG Base Excess POC ABG pCO2 ABG Hemoglobin ABG Oxyhemoglobin ABG Chloride ABG Glucose Oxyhemoglobin Sodium 148 H Potassium 5.1 H Chloride 107.6 H Carbon Dioxide BUN 27 H Creatinine 0.7 L Glucose 155 H POC Glucose 157 H Lactic Acid Calcium Phosphorus Magnesium AST ALT Lactate Dehydrogenase Total Bilirubin Direct Bilirubin CK-MB (CK-2) C-Reactive Protein NT-Pro-B Natriuret Pep Total Protein Albumin Arterial Blood Glucose Urine WBC (Auto) Urine Creatinine 12/07/19 12/07/19 12/07/19 00:13 05:34 11:33 WBC RBC Hgb Hct MCHC RDW MCV MCH Lymph % (Auto) [place] % (Auto) [place] # Eos # Lymph # (Auto) [place] # (Auto) Eos # (Auto) Seg Neutrophils % Seg Neuts % (Manual) Baso # (Auto) Lymphocytes % (Manual) Monocytes % (Manual) Eosinophils % (Manual) Basophils % (Manual) Seg Neutrophils # Seg Neutrophils # Man Lymphocytes # (Manual) Monocytes # (Manual) Eosinophils # (Manual) Nucleated RBC % Basophils # (Manual) PT INR APTT Heparin Anti-Xa Level ABG pH POC ABG pO2 ABG pO2 ABG HCO3 ABG O2 Saturation ABG Base Excess POC ABG pCO2 ABG Hemoglobin ABG Oxyhemoglobin ABG Chloride ABG Glucose Oxyhemoglobin Sodium Potassium Chloride Carbon Dioxide BUN Creatinine Glucose POC Glucose 142 H 111 H 169 H Lactic Acid Calcium Phosphorus Magnesium AST ALT Lactate Dehydrogenase Total Bilirubin Direct Bilirubin CK-MB (CK-2) C-Reactive Protein NT-Pro-B Natriuret Pep Total Protein Albumin Arterial Blood Glucose Urine WBC (Auto) Urine Creatinine 12/07/19 12/07/19 12/07/19 12:41 13:25 18:19 WBC 12.4 H RBC 3.53 L Hgb 10.2 L Hct 32.1 L MCHC RDW 15.3 H MCV MCH Lymph % (Auto) 10.6 L [place] % (Auto) 7.8 H [place] # 1.0 H Eos # Lymph # (Auto) [place] # (Auto) Eos # (Auto) Seg Neutrophils % 77.6 H Seg Neuts % (Manual) Baso # (Auto) Lymphocytes % (Manual) Monocytes % (Manual) Eosinophils % (Manual) Basophils % (Manual) Seg Neutrophils # 9.6 H Seg Neutrophils # Man Lymphocytes # (Manual) Monocytes # (Manual) Eosinophils # (Manual) Nucleated RBC % Basophils # (Manual) PT INR APTT Heparin Anti-Xa Level ABG pH POC ABG pO2 ABG pO2 ABG HCO3 ABG O2 Saturation ABG Base Excess POC ABG pCO2 ABG Hemoglobin ABG Oxyhemoglobin ABG Chloride ABG Glucose Oxyhemoglobin Sodium 149 H Potassium Chloride 108.4 H Carbon Dioxide BUN 26 H Creatinine 0.6 L Glucose 149 H POC Glucose 164 H Lactic Acid Calcium Phosphorus Magnesium 2.60 H AST 121 H ALT 145 H Lactate Dehydrogenase Total Bilirubin Direct Bilirubin CK-MB (CK-2) C-Reactive Protein NT-Pro-B Natriuret Pep Total Protein Albumin 2.6 L Arterial Blood Glucose Urine WBC (Auto) Urine Creatinine 12/07/19 12/08/19 12/08/19 22:25 00:02 03:55 WBC 13.3 H RBC 3.40 L Hgb 9.7 L Hct 30.8 L MCHC 31 L RDW 15.5 H MCV MCH Lymph % (Auto) [place] % (Auto) 8.1 H [place] # 1.1 H Eos # Lymph # (Auto) [place] # (Auto) Eos # (Auto) Seg Neutrophils % 73.0 H Seg Neuts % (Manual) Baso # (Auto) Lymphocytes % (Manual) Monocytes % (Manual) Eosinophils % (Manual) Basophils % (Manual) Seg Neutrophils # 9.7 H Seg Neutrophils # Man Lymphocytes # (Manual) Monocytes # (Manual) Eosinophils # (Manual) Nucleated RBC % Basophils # (Manual) PT INR APTT Heparin Anti-Xa Level 0.12 L ABG pH POC ABG pO2 ABG pO2 ABG HCO3 ABG O2 Saturation ABG Base Excess POC ABG pCO2 ABG Hemoglobin ABG Oxyhemoglobin ABG Chloride ABG Glucose Oxyhemoglobin Sodium Potassium Chloride Carbon Dioxide BUN Creatinine Glucose POC Glucose 151 H Lactic Acid Calcium Phosphorus Magnesium AST ALT Lactate Dehydrogenase Total Bilirubin Direct Bilirubin CK-MB (CK-2) C-Reactive Protein NT-Pro-B Natriuret Pep Total Protein Albumin Arterial Blood Glucose Urine WBC (Auto) Urine Creatinine 12/08/19 12/08/19 12/08/19 03:55 05:21 06:01 WBC RBC Hgb Hct MCHC RDW MCV MCH Lymph % (Auto) [place] % (Auto) [place] # Eos # Lymph # (Auto) [place] # (Auto) Eos # (Auto) Seg Neutrophils % Seg Neuts % (Manual) Baso # (Auto) Lymphocytes % (Manual) Monocytes % (Manual) Eosinophils % (Manual) Basophils % (Manual) Seg Neutrophils # Seg Neutrophils # Man Lymphocytes # (Manual) Monocytes # (Manual) Eosinophils # (Manual) Nucleated RBC % Basophils # (Manual) PT INR APTT Heparin Anti-Xa Level 0.20 L ABG pH POC ABG pO2 ABG pO2 ABG HCO3 ABG O2 Saturation ABG Base Excess POC ABG pCO2 ABG Hemoglobin ABG Oxyhemoglobin ABG Chloride ABG Glucose Oxyhemoglobin Sodium 149 H Potassium Chloride 108.0 H Carbon Dioxide BUN 28 H Creatinine 0.6 L Glucose 144 H POC Glucose 143 H Lactic Acid Calcium Phosphorus Magnesium AST 98 H ALT 145 H Lactate Dehydrogenase Total Bilirubin Direct Bilirubin CK-MB (CK-2) C-Reactive Protein NT-Pro-B Natriuret Pep Total Protein 6.0 L Albumin 2.4 L Arterial Blood Glucose Urine WBC (Auto) Urine Creatinine 12/08/19 12/08/19 12/08/19 12:08 18:11 23:53 WBC RBC Hgb Hct MCHC RDW MCV MCH Lymph % (Auto) [place] % (Auto) [place] # Eos # Lymph # (Auto) [place] # (Auto) Eos # (Auto) Seg Neutrophils % Seg Neuts % (Manual) Baso # (Auto) Lymphocytes % (Manual) Monocytes % (Manual) Eosinophils % (Manual) Basophils % (Manual) Seg Neutrophils # Seg Neutrophils # Man Lymphocytes # (Manual) Monocytes # (Manual) Eosinophils # (Manual) Nucleated RBC % Basophils # (Manual) PT INR APTT Heparin Anti-Xa Level ABG pH POC ABG pO2 ABG pO2 ABG HCO3 ABG O2 Saturation ABG Base Excess POC ABG pCO2 ABG Hemoglobin ABG Oxyhemoglobin ABG Chloride ABG Glucose Oxyhemoglobin Sodium Potassium Chloride Carbon Dioxide BUN Creatinine Glucose POC Glucose 172 H 122 H 162 H Lactic Acid Calcium Phosphorus Magnesium AST ALT Lactate Dehydrogenase Total Bilirubin Direct Bilirubin CK-MB (CK-2) C-Reactive Protein NT-Pro-B Natriuret Pep Total Protein Albumin Arterial Blood Glucose Urine WBC (Auto) Urine Creatinine 12/09/19 12/09/19 12/09/19 04:03 04:03 05:53 WBC RBC Hgb 9.1 L Hct 28.9 L MCHC RDW MCV MCH Lymph % (Auto) [place] % (Auto) [place] # Eos # Lymph # (Auto) [place] # (Auto) Eos # (Auto) Seg Neutrophils % Seg Neuts % (Manual) Baso # (Auto) Lymphocytes % (Manual) Monocytes % (Manual) Eosinophils % (Manual) Basophils % (Manual) Seg Neutrophils # Seg Neutrophils # Man Lymphocytes # (Manual) Monocytes # (Manual) Eosinophils # (Manual) Nucleated RBC % Basophils # (Manual) PT INR APTT Heparin Anti-Xa Level 0.15 L ABG pH POC ABG pO2 ABG pO2 ABG HCO3 ABG O2 Saturation ABG Base Excess POC ABG pCO2 ABG Hemoglobin ABG Oxyhemoglobin ABG Chloride ABG Glucose Oxyhemoglobin Sodium Potassium Chloride Carbon Dioxide BUN Creatinine Glucose POC Glucose 124 H Lactic Acid Calcium Phosphorus Magnesium AST ALT Lactate Dehydrogenase Total Bilirubin Direct Bilirubin CK-MB (CK-2) C-Reactive Protein NT-Pro-B Natriuret Pep Total Protein Albumin Arterial Blood Glucose Urine WBC (Auto) Urine Creatinine 12/09/19 12/09/19 12/10/19 09:43 12:41 00:13 WBC RBC Hgb Hct MCHC RDW MCV MCH Lymph % (Auto) [place] % (Auto) [place] # Eos # Lymph # (Auto) [place] # (Auto) Eos # (Auto) Seg Neutrophils % Seg Neuts % (Manual) Baso # (Auto) Lymphocytes % (Manual) Monocytes % (Manual) Eosinophils % (Manual) Basophils % (Manual) Seg Neutrophils # Seg Neutrophils # Man Lymphocytes # (Manual) Monocytes # (Manual) Eosinophils # (Manual) Nucleated RBC % Basophils # (Manual) PT INR APTT Heparin Anti-Xa Level ABG pH POC ABG pO2 ABG pO2 ABG HCO3 ABG O2 Saturation ABG Base Excess POC ABG pCO2 ABG Hemoglobin ABG Oxyhemoglobin ABG Chloride ABG Glucose Oxyhemoglobin Sodium Potassium Chloride Carbon Dioxide BUN 25 H Creatinine 0.6 L Glucose 131 H POC Glucose 109 H 120 H Lactic Acid Calcium Phosphorus Magnesium AST ALT Lactate Dehydrogenase Total Bilirubin Direct Bilirubin CK-MB (CK-2) C-Reactive Protein NT-Pro-B Natriuret Pep Total Protein Albumin Arterial Blood Glucose Urine WBC (Auto) Urine Creatinine 12/10/19 12/10/19 12/10/19 04:14 04:14 12:00 WBC 13.3 H RBC 3.34 L Hgb 9.6 L Hct 30.4 L MCHC RDW 15.4 H MCV MCH Lymph % (Auto) [place] % (Auto) [place] # Eos # Lymph # (Auto) [place] # (Auto) Eos # (Auto) Seg Neutrophils % Seg Neuts % (Manual) 75.0 H Baso # (Auto) Lymphocytes % (Manual) 13.0 L Monocytes % (Manual) 8.0 H Eosinophils % (Manual) Basophils % (Manual) 2.0 H Seg Neutrophils # Seg Neutrophils # Man 10.0 H Lymphocytes # (Manual) Monocytes # (Manual) 1.1 H Eosinophils # (Manual) Nucleated RBC % Basophils # (Manual) 0.3 H PT INR APTT Heparin Anti-Xa Level ABG pH POC ABG pO2 ABG pO2 ABG HCO3 ABG O2 Saturation ABG Base Excess POC ABG pCO2 ABG Hemoglobin ABG Oxyhemoglobin ABG Chloride ABG Glucose Oxyhemoglobin Sodium 147 H Potassium Chloride 108.3 H Carbon Dioxide BUN 21 H Creatinine 0.6 L Glucose 104 H POC Glucose 133 H Lactic Acid Calcium Phosphorus Magnesium AST ALT Lactate Dehydrogenase Total Bilirubin Direct Bilirubin CK-MB (CK-2) C-Reactive Protein NT-Pro-B Natriuret Pep Total Protein Albumin Arterial Blood Glucose Urine WBC (Auto) Urine Creatinine 12/10/19 12/10/19 12/11/19 18:44 21:20 00:08 WBC 14.9 H RBC 3.36 L Hgb 9.6 L Hct 30.5 L MCHC RDW 15.4 H MCV MCH Lymph % (Auto) [place] % (Auto) [place] # Eos # Lymph # (Auto) [place] # (Auto) Eos # (Auto) Seg Neutrophils % Seg Neuts % (Manual) Baso # (Auto) Lymphocytes % (Manual) Monocytes % (Manual) Eosinophils % (Manual) Basophils % (Manual) Seg Neutrophils # Seg Neutrophils # Man Lymphocytes # (Manual) Monocytes # (Manual) Eosinophils # (Manual) Nucleated RBC % Basophils # (Manual) PT INR APTT Heparin Anti-Xa Level ABG pH POC ABG pO2 ABG pO2 ABG HCO3 ABG O2 Saturation ABG Base Excess POC ABG pCO2 ABG Hemoglobin ABG Oxyhemoglobin ABG Chloride ABG Glucose Oxyhemoglobin Sodium Potassium Chloride Carbon Dioxide BUN Creatinine Glucose POC Glucose 119 H 134 H Lactic Acid Calcium Phosphorus Magnesium AST ALT Lactate Dehydrogenase Total Bilirubin Direct Bilirubin CK-MB (CK-2) C-Reactive Protein NT-Pro-B Natriuret Pep Total Protein Albumin Arterial Blood Glucose Urine WBC (Auto) Urine Creatinine 12/11/19 12/11/19 12/11/19 03:54 07:28 08:36 WBC 11.9 H RBC 3.25 L Hgb 9.6 L Hct 29.2 L MCHC RDW 15.7 H MCV MCH Lymph % (Auto) [place] % (Auto) [place] # Eos # Lymph # (Auto) [place] # (Auto) Eos # (Auto) Seg Neutrophils % Seg Neuts % (Manual) Baso # (Auto) Lymphocytes % (Manual) Monocytes % (Manual) Eosinophils % (Manual) Basophils % (Manual) Seg Neutrophils # Seg Neutrophils # Man Lymphocytes # (Manual) Monocytes # (Manual) Eosinophils # (Manual) Nucleated RBC % Basophils # (Manual) PT INR APTT Heparin Anti-Xa Level 0.10 L 0.16 L ABG pH POC ABG pO2 ABG pO2 ABG HCO3 ABG O2 Saturation ABG Base Excess POC ABG pCO2 ABG Hemoglobin ABG Oxyhemoglobin ABG Chloride ABG Glucose Oxyhemoglobin Sodium Potassium Chloride Carbon Dioxide BUN Creatinine Glucose POC Glucose Lactic Acid Calcium Phosphorus Magnesium AST ALT Lactate Dehydrogenase Total Bilirubin Direct Bilirubin CK-MB (CK-2) C-Reactive Protein NT-Pro-B Natriuret Pep Total Protein Albumin Arterial Blood Glucose Urine WBC (Auto) Urine Creatinine 12/11/19 12/11/19 12/11/19 08:36 11:45 17:15 WBC RBC Hgb Hct MCHC RDW MCV MCH Lymph % (Auto) [place] % (Auto) [place] # Eos # Lymph # (Auto) [place] # (Auto) Eos # (Auto) Seg Neutrophils % Seg Neuts % (Manual) Baso # (Auto) Lymphocytes % (Manual) Monocytes % (Manual) Eosinophils % (Manual) Basophils % (Manual) Seg Neutrophils # Seg Neutrophils # Man Lymphocytes # (Manual) Monocytes # (Manual) Eosinophils # (Manual) Nucleated RBC % Basophils # (Manual) PT INR APTT Heparin Anti-Xa Level ABG pH POC ABG pO2 ABG pO2 ABG HCO3 ABG O2 Saturation ABG Base Excess POC ABG pCO2 ABG Hemoglobin ABG Oxyhemoglobin ABG Chloride ABG Glucose Oxyhemoglobin Sodium Potassium Chloride Carbon Dioxide BUN Creatinine 0.5 L Glucose 128 H POC Glucose 136 H 109 H Lactic Acid Calcium Phosphorus Magnesium AST ALT Lactate Dehydrogenase Total Bilirubin Direct Bilirubin CK-MB (CK-2) C-Reactive Protein NT-Pro-B Natriuret Pep Total Protein Albumin Arterial Blood Glucose Urine WBC (Auto) Urine Creatinine 12/12/19 12/12/19 12/12/19 00:03 05:53 05:53 WBC RBC Hgb 8.8 L Hct 27.6 L MCHC RDW MCV MCH Lymph % (Auto) [place] % (Auto) [place] # Eos # Lymph # (Auto) [place] # (Auto) Eos # (Auto) Seg Neutrophils % Seg Neuts % (Manual) Baso # (Auto) Lymphocytes % (Manual) Monocytes % (Manual) Eosinophils % (Manual) Basophils % (Manual) Seg Neutrophils # Seg Neutrophils # Man Lymphocytes # (Manual) Monocytes # (Manual) Eosinophils # (Manual) Nucleated RBC % Basophils # (Manual) PT INR APTT Heparin Anti-Xa Level 0.22 L ABG pH POC ABG pO2 ABG pO2 ABG HCO3 ABG O2 Saturation ABG Base Excess POC ABG pCO2 ABG Hemoglobin ABG Oxyhemoglobin ABG Chloride ABG Glucose Oxyhemoglobin Sodium Potassium Chloride Carbon Dioxide BUN Creatinine Glucose POC Glucose 116 H Lactic Acid Calcium Phosphorus Magnesium AST ALT Lactate Dehydrogenase Total Bilirubin Direct Bilirubin CK-MB (CK-2) C-Reactive Protein NT-Pro-B Natriuret Pep Total Protein Albumin Arterial Blood Glucose Urine WBC (Auto) Urine Creatinine 12/12/19 12/12/19 12/12/19 09:38 12:18 17:44 WBC RBC Hgb Hct MCHC RDW MCV MCH Lymph % (Auto) [place] % (Auto) [place] # Eos # Lymph # (Auto) [place] # (Auto) Eos # (Auto) Seg Neutrophils % Seg Neuts % (Manual) Baso # (Auto) Lymphocytes % (Manual) Monocytes % (Manual) Eosinophils % (Manual) Basophils % (Manual) Seg Neutrophils # Seg Neutrophils # Man Lymphocytes # (Manual) Monocytes # (Manual) Eosinophils # (Manual) Nucleated RBC % Basophils # (Manual) PT INR APTT Heparin Anti-Xa Level ABG pH POC ABG pO2 ABG pO2 ABG HCO3 ABG O2 Saturation ABG Base Excess POC ABG pCO2 ABG Hemoglobin ABG Oxyhemoglobin ABG Chloride ABG Glucose Oxyhemoglobin Sodium Potassium Chloride Carbon Dioxide BUN Creatinine Glucose POC Glucose 115 H 146 H 146 H Lactic Acid Calcium Phosphorus Magnesium AST ALT Lactate Dehydrogenase Total Bilirubin Direct Bilirubin CK-MB (CK-2) C-Reactive Protein NT-Pro-B Natriuret Pep Total Protein Albumin Arterial Blood Glucose Urine WBC (Auto) Urine Creatinine 12/12/19 12/13/19 12/13/19 23:33 05:32 05:32 WBC 13.1 H RBC 3.27 L Hgb 9.5 L Hct 29.3 L MCHC RDW 15.6 H MCV MCH Lymph % (Auto) [place] % (Auto) [place] # Eos # Lymph # (Auto) [place] # (Auto) Eos # (Auto) Seg Neutrophils % Seg Neuts % (Manual) 74.0 H Baso # (Auto) Lymphocytes % (Manual) 8.0 L Monocytes % (Manual) 9.0 H Eosinophils % (Manual) 5.0 H Basophils % (Manual) Seg Neutrophils # Seg Neutrophils # Man 9.7 H Lymphocytes # (Manual) 1.0 L Monocytes # (Manual) 1.2 H Eosinophils # (Manual) 0.7 H Nucleated RBC % Basophils # (Manual) PT INR APTT Heparin Anti-Xa Level 0.20 L ABG pH POC ABG pO2 ABG pO2 ABG HCO3 ABG O2 Saturation ABG Base Excess POC ABG pCO2 ABG Hemoglobin ABG Oxyhemoglobin ABG Chloride ABG Glucose Oxyhemoglobin Sodium Potassium Chloride Carbon Dioxide BUN Creatinine Glucose POC Glucose 126 H Lactic Acid Calcium Phosphorus Magnesium AST ALT Lactate Dehydrogenase Total Bilirubin Direct Bilirubin CK-MB (CK-2) C-Reactive Protein NT-Pro-B Natriuret Pep Total Protein Albumin Arterial Blood Glucose Urine WBC (Auto) Urine Creatinine 12/13/19 12/13/19 12/13/19 05:32 05:46 11:57 WBC RBC Hgb Hct MCHC RDW MCV MCH Lymph % (Auto) [place] % (Auto) [place] # Eos # Lymph # (Auto) [place] # (Auto) Eos # (Auto) Seg Neutrophils % Seg Neuts % (Manual) Baso # (Auto) Lymphocytes % (Manual) Monocytes % (Manual) Eosinophils % (Manual) Basophils % (Manual) Seg Neutrophils # Seg Neutrophils # Man Lymphocytes # (Manual) Monocytes # (Manual) Eosinophils # (Manual) Nucleated RBC % Basophils # (Manual) PT INR APTT Heparin Anti-Xa Level ABG pH POC ABG pO2 ABG pO2 ABG HCO3 ABG O2 Saturation ABG Base Excess POC ABG pCO2 ABG Hemoglobin ABG Oxyhemoglobin ABG Chloride ABG Glucose Oxyhemoglobin Sodium Potassium Chloride Carbon Dioxide 31 H BUN Creatinine 0.6 L Glucose 114 H POC Glucose 118 H 133 H Lactic Acid Calcium Phosphorus Magnesium AST ALT Lactate Dehydrogenase Total Bilirubin Direct Bilirubin CK-MB (CK-2) C-Reactive Protein NT-Pro-B Natriuret Pep Total Protein Albumin Arterial Blood Glucose Urine WBC (Auto) Urine Creatinine 12/13/19 12/13/19 12/14/19 17:44 23:46 05:32 WBC RBC Hgb Hct MCHC RDW MCV MCH Lymph % (Auto) [place] % (Auto) [place] # Eos # Lymph # (Auto) [place] # (Auto) Eos # (Auto) Seg Neutrophils % Seg Neuts % (Manual) Baso # (Auto) Lymphocytes % (Manual) Monocytes % (Manual) Eosinophils % (Manual) Basophils % (Manual) Seg Neutrophils # Seg Neutrophils # Man Lymphocytes # (Manual) Monocytes # (Manual) Eosinophils # (Manual) Nucleated RBC % Basophils # (Manual) PT INR APTT Heparin Anti-Xa Level ABG pH POC ABG pO2 ABG pO2 ABG HCO3 ABG O2 Saturation ABG Base Excess POC ABG pCO2 ABG Hemoglobin ABG Oxyhemoglobin ABG Chloride ABG Glucose Oxyhemoglobin Sodium Potassium Chloride Carbon Dioxide BUN Creatinine Glucose POC Glucose 161 H 126 H 139 H Lactic Acid Calcium Phosphorus Magnesium AST ALT Lactate Dehydrogenase Total Bilirubin Direct Bilirubin CK-MB (CK-2) C-Reactive Protein NT-Pro-B Natriuret Pep Total Protein Albumin Arterial Blood Glucose Urine WBC (Auto) Urine Creatinine 12/14/19 12/14/19 12/14/19 06:03 06:03 09:37 WBC RBC Hgb 9.6 L Hct 30.4 L MCHC RDW MCV MCH Lymph % (Auto) [place] % (Auto) [place] # Eos # Lymph # (Auto) [place] # (Auto) Eos # (Auto) Seg Neutrophils % Seg Neuts % (Manual) Baso # (Auto) Lymphocytes % (Manual) Monocytes % (Manual) Eosinophils % (Manual) Basophils % (Manual) Seg Neutrophils # Seg Neutrophils # Man Lymphocytes # (Manual) Monocytes # (Manual) Eosinophils # (Manual) Nucleated RBC % Basophils # (Manual) PT INR APTT Heparin Anti-Xa Level 0.24 L ABG pH POC ABG pO2 ABG pO2 ABG HCO3 ABG O2 Saturation ABG Base Excess POC ABG pCO2 ABG Hemoglobin ABG Oxyhemoglobin ABG Chloride ABG Glucose Oxyhemoglobin Sodium Potassium Chloride Carbon Dioxide BUN Creatinine 0.6 L Glucose 162 H POC Glucose Lactic Acid Calcium Phosphorus Magnesium AST 71 H ALT 118 H Lactate Dehydrogenase Total Bilirubin Direct Bilirubin CK-MB (CK-2) C-Reactive Protein NT-Pro-B Natriuret Pep Total Protein 6.2 L Albumin 2.3 L Arterial Blood Glucose Urine WBC (Auto) Urine Creatinine 12/14/19 12/14/19 12/15/19 12:06 18:18 00:19 WBC RBC Hgb Hct MCHC RDW MCV MCH Lymph % (Auto) [place] % (Auto) [place] # Eos # Lymph # (Auto) [place] # (Auto) Eos # (Auto) Seg Neutrophils % Seg Neuts % (Manual) Baso # (Auto) Lymphocytes % (Manual) Monocytes % (Manual) Eosinophils % (Manual) Basophils % (Manual) Seg Neutrophils # Seg Neutrophils # Man Lymphocytes # (Manual) Monocytes # (Manual) Eosinophils # (Manual) Nucleated RBC % Basophils # (Manual) PT INR APTT Heparin Anti-Xa Level ABG pH POC ABG pO2 ABG pO2 ABG HCO3 ABG O2 Saturation ABG Base Excess POC ABG pCO2 ABG Hemoglobin ABG Oxyhemoglobin ABG Chloride ABG Glucose Oxyhemoglobin Sodium Potassium Chloride Carbon Dioxide BUN Creatinine Glucose POC Glucose 147 H 166 H 123 H Lactic Acid Calcium Phosphorus Magnesium AST ALT Lactate Dehydrogenase Total Bilirubin Direct Bilirubin CK-MB (CK-2) C-Reactive Protein NT-Pro-B Natriuret Pep Total Protein Albumin Arterial Blood Glucose Urine WBC (Auto) Urine Creatinine 12/15/19 12/15/19 12/15/19 05:28 05:29 05:29 WBC 14.9 H RBC 3.19 L Hgb 9.1 L Hct 28.7 L MCHC RDW 16.0 H MCV MCH Lymph % (Auto) [place] % (Auto) [place] # Eos # Lymph # (Auto) [place] # (Auto) Eos # (Auto) Seg Neutrophils % Seg Neuts % (Manual) Baso # (Auto) Lymphocytes % (Manual) Monocytes % (Manual) Eosinophils % (Manual) Basophils % (Manual) Seg Neutrophils # Seg Neutrophils # Man Lymphocytes # (Manual) Monocytes # (Manual) Eosinophils # (Manual) Nucleated RBC % Basophils # (Manual) PT INR APTT Heparin Anti-Xa Level 0.19 L ABG pH POC ABG pO2 ABG pO2 ABG HCO3 ABG O2 Saturation ABG Base Excess POC ABG pCO2 ABG Hemoglobin ABG Oxyhemoglobin ABG Chloride ABG Glucose Oxyhemoglobin Sodium Potassium Chloride Carbon Dioxide BUN Creatinine 0.6 L Glucose 110 H POC Glucose Lactic Acid Calcium Phosphorus Magnesium AST ALT Lactate Dehydrogenase Total Bilirubin Direct Bilirubin CK-MB (CK-2) C-Reactive Protein NT-Pro-B Natriuret Pep Total Protein Albumin Arterial Blood Glucose Urine WBC (Auto) Urine Creatinine 0912/15/19 12/15/19 05:53 11:50 17:26 WBC RBC Hgb Hct MCHC RDW MCV MCH Lymph % (Auto) [place] % (Auto) [place] # Eos # Lymph # (Auto) [place] # (Auto) Eos # (Auto) Seg Neutrophils % Seg Neuts % (Manual) Baso # (Auto) Lymphocytes % (Manual) Monocytes % (Manual) Eosinophils % (Manual) Basophils % (Manual) Seg Neutrophils # Seg Neutrophils # Man Lymphocytes # (Manual) Monocytes # (Manual) Eosinophils # (Manual) Nucleated RBC % Basophils # (Manual) PT INR APTT Heparin Anti-Xa Level ABG pH POC ABG pO2 ABG pO2 ABG HCO3 ABG O2 Saturation ABG Base Excess POC ABG pCO2 ABG Hemoglobin ABG Oxyhemoglobin ABG Chloride ABG Glucose Oxyhemoglobin Sodium Potassium Chloride Carbon Dioxide BUN Creatinine Glucose POC Glucose 119 H 132 H 128 H Lactic Acid Calcium Phosphorus Magnesium AST ALT Lactate Dehydrogenase Total Bilirubin Direct Bilirubin CK-MB (CK-2) C-Reactive Protein NT-Pro-B Natriuret Pep Total Protein Albumin Arterial Blood Glucose Urine WBC (Auto) Urine Creatinine 12/15/19 12/16/19 12/16/19 23:11 05:30 05:46 WBC RBC Hgb 8.8 L Hct 27.9 L MCHC RDW MCV MCH Lymph % (Auto) [place] % (Auto) [place] # Eos # Lymph # (Auto) [place] # (Auto) Eos # (Auto) Seg Neutrophils % Seg Neuts % (Manual) Baso # (Auto) Lymphocytes % (Manual) Monocytes % (Manual) Eosinophils % (Manual) Basophils % (Manual) Seg Neutrophils # Seg Neutrophils # Man Lymphocytes # (Manual) Monocytes # (Manual) Eosinophils # (Manual) Nucleated RBC % Basophils # (Manual) PT INR APTT Heparin Anti-Xa Level ABG pH POC ABG pO2 ABG pO2 ABG HCO3 ABG O2 Saturation ABG Base Excess POC ABG pCO2 ABG Hemoglobin ABG Oxyhemoglobin ABG Chloride ABG Glucose Oxyhemoglobin Sodium Potassium Chloride Carbon Dioxide BUN Creatinine Glucose POC Glucose 150 H 134 H Lactic Acid Calcium Phosphorus Magnesium AST ALT Lactate Dehydrogenase Total Bilirubin Direct Bilirubin CK-MB (CK-2) C-Reactive Protein NT-Pro-B Natriuret Pep Total Protein Albumin Arterial Blood Glucose Urine WBC (Auto) Urine Creatinine 12/16/19 12/16/19 12/16/19 05:46 05:46 11:44 WBC RBC Hgb Hct MCHC RDW MCV MCH Lymph % (Auto) [place] % (Auto) [place] # Eos # Lymph # (Auto) [place] # (Auto) Eos # (Auto) Seg Neutrophils % Seg Neuts % (Manual) Baso # (Auto) Lymphocytes % (Manual) Monocytes % (Manual) Eosinophils % (Manual) Basophils % (Manual) Seg Neutrophils # Seg Neutrophils # Man Lymphocytes # (Manual) Monocytes # (Manual) Eosinophils # (Manual) Nucleated RBC % Basophils # (Manual) PT INR APTT Heparin Anti-Xa Level 0.20 L ABG pH POC ABG pO2 ABG pO2 ABG HCO3 ABG O2 Saturation ABG Base Excess POC ABG pCO2 ABG Hemoglobin ABG Oxyhemoglobin ABG Chloride ABG Glucose Oxyhemoglobin Sodium Potassium Chloride Carbon Dioxide 31 H BUN Creatinine 0.5 L Glucose 147 H POC Glucose 164 H Lactic Acid Calcium Phosphorus Magnesium AST ALT Lactate Dehydrogenase Total Bilirubin Direct Bilirubin CK-MB (CK-2) C-Reactive Protein NT-Pro-B Natriuret Pep Total Protein Albumin Arterial Blood Glucose Urine WBC (Auto) Urine Creatinine 12/16/19 12/16/19 12/17/19 17:17 23:49 05:30 WBC 13.9 H RBC 3.27 L Hgb 9.4 L Hct 29.2 L MCHC RDW 16.0 H MCV MCH Lymph % (Auto) [place] % (Auto) 8.8 H [place] # Eos # Lymph # (Auto) [place] # (Auto) 1.2 H Eos # (Auto) 0.5 H Seg Neutrophils % 70.5 H Seg Neuts % (Manual) Baso # (Auto) 0.2 H Lymphocytes % (Manual) Monocytes % (Manual) Eosinophils % (Manual) Basophils % (Manual) Seg Neutrophils # 9.8 H Seg Neutrophils # Man Lymphocytes # (Manual) Monocytes # (Manual) Eosinophils # (Manual) Nucleated RBC % Basophils # (Manual) PT INR APTT Heparin Anti-Xa Level ABG pH POC ABG pO2 ABG pO2 ABG HCO3 ABG O2 Saturation ABG Base Excess POC ABG pCO2 ABG Hemoglobin ABG Oxyhemoglobin ABG Chloride ABG Glucose Oxyhemoglobin Sodium Potassium Chloride Carbon Dioxide BUN Creatinine Glucose POC Glucose 162 H 144 H Lactic Acid Calcium Phosphorus Magnesium AST ALT Lactate Dehydrogenase Total Bilirubin Direct Bilirubin CK-MB (CK-2) C-Reactive Protein NT-Pro-B Natriuret Pep Total Protein Albumin Arterial Blood Glucose Urine WBC (Auto) Urine Creatinine 12/17/19 12/17/19 12/17/19 05:30 06:06 11:50 WBC RBC Hgb Hct MCHC RDW MCV MCH Lymph % (Auto) [place] % (Auto) [place] # Eos # Lymph # (Auto) [place] # (Auto) Eos # (Auto) Seg Neutrophils % Seg Neuts % (Manual) Baso # (Auto) Lymphocytes % (Manual) Monocytes % (Manual) Eosinophils % (Manual) Basophils % (Manual) Seg Neutrophils # Seg Neutrophils # Man Lymphocytes # (Manual) Monocytes # (Manual) Eosinophils # (Manual) Nucleated RBC % Basophils # (Manual) PT INR APTT Heparin Anti-Xa Level ABG pH POC ABG pO2 ABG pO2 ABG HCO3 ABG O2 Saturation ABG Base Excess POC ABG pCO2 ABG Hemoglobin ABG Oxyhemoglobin ABG Chloride ABG Glucose Oxyhemoglobin Sodium Potassium Chloride 97.4 L Carbon Dioxide 32 H BUN Creatinine 0.5 L Glucose 135 H POC Glucose 151 H 140 H Lactic Acid Calcium Phosphorus Magnesium AST ALT Lactate Dehydrogenase Total Bilirubin Direct Bilirubin CK-MB (CK-2) C-Reactive Protein NT-Pro-B Natriuret Pep Total Protein Albumin Arterial Blood Glucose Urine WBC (Auto) Urine Creatinine 12/17/19 12/17/19 12/18/19 17:50 23:46 05:17 WBC RBC Hgb 8.8 L Hct 28.0 L MCHC RDW MCV MCH Lymph % (Auto) [place] % (Auto) [place] # Eos # Lymph # (Auto) [place] # (Auto) Eos # (Auto) Seg Neutrophils % Seg Neuts % (Manual) Baso # (Auto) Lymphocytes % (Manual) Monocytes % (Manual) Eosinophils % (Manual) Basophils % (Manual) Seg Neutrophils # Seg Neutrophils # Man Lymphocytes # (Manual) Monocytes # (Manual) Eosinophils # (Manual) Nucleated RBC % Basophils # (Manual) PT INR APTT Heparin Anti-Xa Level ABG pH POC ABG pO2 ABG pO2 ABG HCO3 ABG O2 Saturation ABG Base Excess POC ABG pCO2 ABG Hemoglobin ABG Oxyhemoglobin ABG Chloride ABG Glucose Oxyhemoglobin Sodium Potassium Chloride Carbon Dioxide BUN Creatinine Glucose POC Glucose 158 H 150 H Lactic Acid Calcium Phosphorus Magnesium AST ALT Lactate Dehydrogenase Total Bilirubin Direct Bilirubin CK-MB (CK-2) C-Reactive Protein NT-Pro-B Natriuret Pep Total Protein Albumin Arterial Blood Glucose Urine WBC (Auto) Urine Creatinine 12/18/19 12/18/19 12/18/19 05:17 05:49 11:12 WBC RBC Hgb Hct MCHC RDW MCV MCH Lymph % (Auto) [place] % (Auto) [place] # Eos # Lymph # (Auto) [place] # (Auto) Eos # (Auto) Seg Neutrophils % Seg Neuts % (Manual) Baso # (Auto) Lymphocytes % (Manual) Monocytes % (Manual) Eosinophils % (Manual) Basophils % (Manual) Seg Neutrophils # Seg Neutrophils # Man Lymphocytes # (Manual) Monocytes # (Manual) Eosinophils # (Manual) Nucleated RBC % Basophils # (Manual) PT INR APTT Heparin Anti-Xa Level 0.16 L ABG pH POC ABG pO2 ABG pO2 ABG HCO3 ABG O2 Saturation ABG Base Excess POC ABG pCO2 ABG Hemoglobin ABG Oxyhemoglobin ABG Chloride ABG Glucose Oxyhemoglobin Sodium Potassium Chloride Carbon Dioxide BUN Creatinine Glucose POC Glucose 127 H 191 H Lactic Acid Calcium Phosphorus Magnesium AST ALT Lactate Dehydrogenase Total Bilirubin Direct Bilirubin CK-MB (CK-2) C-Reactive Protein NT-Pro-B Natriuret Pep Total Protein Albumin Arterial Blood Glucose Urine WBC (Auto) Urine Creatinine 12/18/19 12/18/19 12/19/19 17:03 20:16 00:08 WBC RBC Hgb Hct MCHC RDW MCV MCH Lymph % (Auto) [place] % (Auto) [place] # Eos # Lymph # (Auto) [place] # (Auto) Eos # (Auto) Seg Neutrophils % Seg Neuts % (Manual) Baso # (Auto) Lymphocytes % (Manual) Monocytes % (Manual) Eosinophils % (Manual) Basophils % (Manual) Seg Neutrophils # Seg Neutrophils # Man Lymphocytes # (Manual) Monocytes # (Manual) Eosinophils # (Manual) Nucleated RBC % Basophils # (Manual) PT INR APTT Heparin Anti-Xa Level ABG pH POC ABG pO2 ABG pO2 ABG HCO3 ABG O2 Saturation ABG Base Excess POC ABG pCO2 ABG Hemoglobin ABG Oxyhemoglobin ABG Chloride ABG Glucose Oxyhemoglobin Sodium Potassium Chloride Carbon Dioxide BUN Creatinine Glucose POC Glucose 133 H 128 H 129 H Lactic Acid Calcium Phosphorus Magnesium AST ALT Lactate Dehydrogenase Total Bilirubin Direct Bilirubin CK-MB (CK-2) C-Reactive Protein NT-Pro-B Natriuret Pep Total Protein Albumin Arterial Blood Glucose Urine WBC (Auto) Urine Creatinine 12/19/19 12/19/19 12/19/19 04:45 04:45 05:35 WBC RBC Hgb Hct MCHC RDW MCV MCH Lymph % (Auto) [place] % (Auto) [place] # Eos # Lymph # (Auto) [place] # (Auto) Eos # (Auto) Seg Neutrophils % Seg Neuts % (Manual) Baso # (Auto) Lymphocytes % (Manual) Monocytes % (Manual) Eosinophils % (Manual) Basophils % (Manual) Seg Neutrophils # Seg Neutrophils # Man Lymphocytes # (Manual) Monocytes # (Manual) Eosinophils # (Manual) Nucleated RBC % Basophils # (Manual) PT INR APTT Heparin Anti-Xa Level 0.17 L ABG pH POC ABG pO2 ABG pO2 ABG HCO3 ABG O2 Saturation ABG Base Excess POC ABG pCO2 ABG Hemoglobin ABG Oxyhemoglobin ABG Chloride ABG Glucose Oxyhemoglobin Sodium Potassium Chloride Carbon Dioxide BUN Creatinine Glucose POC Glucose 120 H Lactic Acid Calcium Phosphorus Magnesium AST ALT Lactate Dehydrogenase 228 H Total Bilirubin Direct Bilirubin CK-MB (CK-2) C-Reactive Protein NT-Pro-B Natriuret Pep Total Protein Albumin Arterial Blood Glucose Urine WBC (Auto) Urine Creatinine 12/19/19 12/19/19 12/19/19 09:20 11:32 11:32 WBC 14.6 H RBC 3.08 L Hgb 9.0 L Hct 26.8 L MCHC RDW 15.9 H MCV MCH Lymph % (Auto) [place] % (Auto) [place] # Eos # Lymph # (Auto) [place] # (Auto) Eos # (Auto) Seg Neutrophils % Seg Neuts % (Manual) 82.0 H Baso # (Auto) Lymphocytes % (Manual) 10.0 L Monocytes % (Manual) Eosinophils % (Manual) Basophils % (Manual) Seg Neutrophils # Seg Neutrophils # Man 12.0 H Lymphocytes # (Manual) Monocytes # (Manual) 0.9 H Eosinophils # (Manual) Nucleated RBC % 1.0 H Basophils # (Manual) PT INR APTT Heparin Anti-Xa Level ABG pH 7.451 H POC ABG pO2 ABG pO2 62.6 L ABG HCO3 33.2 H ABG O2 Saturation 93.8 L ABG Base Excess 8.3 H POC ABG pCO2 ABG Hemoglobin 8.3 L ABG Oxyhemoglobin ABG Chloride ABG Glucose Oxyhemoglobin 91.9 L Sodium Potassium Chloride 95.0 L Carbon Dioxide 33 H BUN 22 H Creatinine 0.6 L Glucose 150 H POC Glucose Lactic Acid Calcium Phosphorus Magnesium AST ALT Lactate Dehydrogenase Total Bilirubin Direct Bilirubin CK-MB (CK-2) C-Reactive Protein NT-Pro-B Natriuret Pep Total Protein 6.2 L Albumin 2.4 L Arterial Blood Glucose Urine WBC (Auto) Urine Creatinine 12/19/19 12/19/19 12/20/19 11:56 18:17 00:09 WBC RBC Hgb Hct MCHC RDW MCV MCH Lymph % (Auto) [place] % (Auto) [place] # Eos # Lymph # (Auto) [place] # (Auto) Eos # (Auto) Seg Neutrophils % Seg Neuts % (Manual) Baso # (Auto) Lymphocytes % (Manual) Monocytes % (Manual) Eosinophils % (Manual) Basophils % (Manual) Seg Neutrophils # Seg Neutrophils # Man Lymphocytes # (Manual) Monocytes # (Manual) Eosinophils # (Manual) Nucleated RBC % Basophils # (Manual) PT INR APTT Heparin Anti-Xa Level ABG pH POC ABG pO2 ABG pO2 ABG HCO3 ABG O2 Saturation ABG Base Excess POC ABG pCO2 ABG Hemoglobin ABG Oxyhemoglobin ABG Chloride ABG Glucose Oxyhemoglobin Sodium Potassium Chloride Carbon Dioxide BUN Creatinine Glucose POC Glucose 156 H 156 H 155 H Lactic Acid Calcium Phosphorus Magnesium AST ALT Lactate Dehydrogenase Total Bilirubin Direct Bilirubin CK-MB (CK-2) C-Reactive Protein NT-Pro-B Natriuret Pep Total Protein Albumin Arterial Blood Glucose Urine WBC (Auto) Urine Creatinine 12/20/19 12/20/19 12/20/19 05:26 06:02 18:17 WBC RBC Hgb Hct MCHC RDW MCV MCH Lymph % (Auto) [place] % (Auto) [place] # Eos # Lymph # (Auto) [place] # (Auto) Eos # (Auto) Seg Neutrophils % Seg Neuts % (Manual) Baso # (Auto) Lymphocytes % (Manual) Monocytes % (Manual) Eosinophils % (Manual) Basophils % (Manual) Seg Neutrophils # Seg Neutrophils # Man Lymphocytes # (Manual) Monocytes # (Manual) Eosinophils # (Manual) Nucleated RBC % Basophils # (Manual) PT INR APTT Heparin Anti-Xa Level 0.19 L ABG pH POC ABG pO2 ABG pO2 ABG HCO3 ABG O2 Saturation ABG Base Excess POC ABG pCO2 ABG Hemoglobin ABG Oxyhemoglobin ABG Chloride ABG Glucose Oxyhemoglobin Sodium Potassium Chloride Carbon Dioxide BUN Creatinine Glucose POC Glucose 137 H 128 H Lactic Acid Calcium Phosphorus Magnesium AST ALT Lactate Dehydrogenase Total Bilirubin Direct Bilirubin CK-MB (CK-2) C-Reactive Protein NT-Pro-B Natriuret Pep Total Protein Albumin Arterial Blood Glucose Urine WBC (Auto) Urine Creatinine 12/20/19 12/21/19 12/21/19 23:34 05:31 05:31 WBC 12.7 H RBC 3.09 L Hgb 8.9 L Hct 27.4 L MCHC RDW 15.8 H MCV MCH Lymph % (Auto) 12.1 L [place] % (Auto) 7.8 H [place] # Eos # Lymph # (Auto) [place] # (Auto) 1.0 H Eos # (Auto) Seg Neutrophils % 77.1 H Seg Neuts % (Manual) Baso # (Auto) Lymphocytes % (Manual) Monocytes % (Manual) Eosinophils % (Manual) Basophils % (Manual) Seg Neutrophils # 9.8 H Seg Neutrophils # Man Lymphocytes # (Manual) Monocytes # (Manual) Eosinophils # (Manual) Nucleated RBC % Basophils # (Manual) PT INR APTT Heparin Anti-Xa Level ABG pH POC ABG pO2 ABG pO2 ABG HCO3 ABG O2 Saturation ABG Base Excess POC ABG pCO2 ABG Hemoglobin ABG Oxyhemoglobin ABG Chloride ABG Glucose Oxyhemoglobin Sodium Potassium Chloride 96.9 L Carbon Dioxide 37 H BUN 27 H Creatinine 0.7 L Glucose 140 H POC Glucose 145 H Lactic Acid Calcium Phosphorus Magnesium AST ALT Lactate Dehydrogenase Total Bilirubin Direct Bilirubin CK-MB (CK-2) C-Reactive Protein NT-Pro-B Natriuret Pep Total Protein Albumin Arterial Blood Glucose Urine WBC (Auto) Urine Creatinine 12/21/19 12/21/19 12/21/19 05:38 10:13 11:51 WBC RBC Hgb Hct MCHC RDW MCV MCH Lymph % (Auto) [place] % (Auto) [place] # Eos # Lymph # (Auto) [place] # (Auto) Eos # (Auto) Seg Neutrophils % Seg Neuts % (Manual) Baso # (Auto) Lymphocytes % (Manual) Monocytes % (Manual) Eosinophils % (Manual) Basophils % (Manual) Seg Neutrophils # Seg Neutrophils # Man Lymphocytes # (Manual) Monocytes # (Manual) Eosinophils # (Manual) Nucleated RBC % Basophils # (Manual) PT INR APTT 23.9 L Heparin Anti-Xa Level < 0.10 L ABG pH POC ABG pO2 ABG pO2 ABG HCO3 ABG O2 Saturation ABG Base Excess POC ABG pCO2 ABG Hemoglobin ABG Oxyhemoglobin ABG Chloride ABG Glucose Oxyhemoglobin Sodium Potassium Chloride Carbon Dioxide BUN Creatinine Glucose POC Glucose 151 H 145 H Lactic Acid Calcium Phosphorus Magnesium AST ALT Lactate Dehydrogenase Total Bilirubin Direct Bilirubin CK-MB (CK-2) C-Reactive Protein NT-Pro-B Natriuret Pep Total Protein Albumin Arterial Blood Glucose Urine WBC (Auto) Urine Creatinine 12/21/19 12/22/19 12/22/19 17:16 00:01 01:33 WBC RBC Hgb Hct MCHC RDW MCV MCH Lymph % (Auto) [place] % (Auto) [place] # Eos # Lymph # (Auto) [place] # (Auto) Eos # (Auto) Seg Neutrophils % Seg Neuts % (Manual) Baso # (Auto) Lymphocytes % (Manual) Monocytes % (Manual) Eosinophils % (Manual) Basophils % (Manual) Seg Neutrophils # Seg Neutrophils # Man Lymphocytes # (Manual) Monocytes # (Manual) Eosinophils # (Manual) Nucleated RBC % Basophils # (Manual) PT INR APTT Heparin Anti-Xa Level 0.10 L ABG pH POC ABG pO2 ABG pO2 ABG HCO3 ABG O2 Saturation ABG Base Excess POC ABG pCO2 ABG Hemoglobin ABG Oxyhemoglobin ABG Chloride ABG Glucose Oxyhemoglobin Sodium Potassium Chloride Carbon Dioxide BUN Creatinine Glucose POC Glucose 167 H 179 H Lactic Acid Calcium Phosphorus Magnesium AST ALT Lactate Dehydrogenase Total Bilirubin Direct Bilirubin CK-MB (CK-2) C-Reactive Protein NT-Pro-B Natriuret Pep Total Protein Albumin Arterial Blood Glucose Urine WBC (Auto) Urine Creatinine 12/22/19 12/22/19 12/22/19 03:22 05:10 05:10 WBC 13.8 H RBC 3.20 L Hgb 8.9 L Hct 28.1 L MCHC RDW 15.9 H MCV MCH Lymph % (Auto) [place] % (Auto) [place] # Eos # Lymph # (Auto) [place] # (Auto) Eos # (Auto) Seg Neutrophils % Seg Neuts % (Manual) Baso # (Auto) Lymphocytes % (Manual) Monocytes % (Manual) Eosinophils % (Manual) Basophils % (Manual) Seg Neutrophils # Seg Neutrophils # Man Lymphocytes # (Manual) Monocytes # (Manual) Eosinophils # (Manual) Nucleated RBC % Basophils # (Manual) PT INR APTT Heparin Anti-Xa Level ABG pH POC ABG pO2 52.3 L ABG pO2 ABG HCO3 ABG O2 Saturation ABG Base Excess POC ABG pCO2 52.9 H ABG Hemoglobin 10.7 L ABG Oxyhemoglobin 84 L ABG Chloride ABG Glucose Oxyhemoglobin Sodium Potassium Chloride 96.6 L Carbon Dioxide BUN 25 H Creatinine 0.7 L Glucose 129 H POC Glucose Lactic Acid Calcium Phosphorus Magnesium AST ALT Lactate Dehydrogenase Total Bilirubin Direct Bilirubin CK-MB (CK-2) C-Reactive Protein NT-Pro-B Natriuret Pep Total Protein Albumin Arterial Blood Glucose Urine WBC (Auto) Urine Creatinine 12/22/19 12/22/19 12/22/19 05:18 12:32 12:43 WBC RBC Hgb Hct MCHC RDW MCV MCH Lymph % (Auto) [place] % (Auto) [place] # Eos # Lymph # (Auto) [place] # (Auto) Eos # (Auto) Seg Neutrophils % Seg Neuts % (Manual) Baso # (Auto) Lymphocytes % (Manual) Monocytes % (Manual) Eosinophils % (Manual) Basophils % (Manual) Seg Neutrophils # Seg Neutrophils # Man Lymphocytes # (Manual) Monocytes # (Manual) Eosinophils # (Manual) Nucleated RBC % Basophils # (Manual) PT INR APTT Heparin Anti-Xa Level 0.18 L ABG pH POC ABG pO2 ABG pO2 ABG HCO3 ABG O2 Saturation ABG Base Excess POC ABG pCO2 ABG Hemoglobin ABG Oxyhemoglobin ABG Chloride ABG Glucose Oxyhemoglobin Sodium Potassium Chloride Carbon Dioxide BUN Creatinine Glucose POC Glucose 131 H 208 H Lactic Acid Calcium Phosphorus Magnesium AST ALT Lactate Dehydrogenase Total Bilirubin Direct Bilirubin CK-MB (CK-2) C-Reactive Protein NT-Pro-B Natriuret Pep Total Protein Albumin Arterial Blood Glucose Urine WBC (Auto) Urine Creatinine 12/22/19 12/22/19 12/23/19 17:44 23:20 03:51 WBC 15.2 H RBC 3.43 L Hgb 9.6 L Hct 30.3 L MCHC RDW 15.9 H MCV MCH Lymph % (Auto) [place] % (Auto) [place] # Eos # Lymph # (Auto) [place] # (Auto) Eos # (Auto) Seg Neutrophils % Seg Neuts % (Manual) Baso # (Auto) Lymphocytes % (Manual) Monocytes % (Manual) Eosinophils % (Manual) Basophils % (Manual) Seg Neutrophils # Seg Neutrophils # Man Lymphocytes # (Manual) Monocytes # (Manual) Eosinophils # (Manual) Nucleated RBC % Basophils # (Manual) PT INR APTT Heparin Anti-Xa Level ABG pH POC ABG pO2 ABG pO2 ABG HCO3 ABG O2 Saturation ABG Base Excess POC ABG pCO2 ABG Hemoglobin ABG Oxyhemoglobin ABG Chloride ABG Glucose Oxyhemoglobin Sodium Potassium Chloride Carbon Dioxide BUN Creatinine Glucose POC Glucose 209 H 119 H Lactic Acid Calcium Phosphorus Magnesium AST ALT Lactate Dehydrogenase Total Bilirubin Direct Bilirubin CK-MB (CK-2) C-Reactive Protein NT-Pro-B Natriuret Pep Total Protein Albumin Arterial Blood Glucose Urine WBC (Auto) Urine Creatinine 12/23/19 12/23/19 12/23/19 03:51 05:31 12:09 WBC RBC Hgb Hct MCHC RDW MCV MCH Lymph % (Auto) [place] % (Auto) [place] # Eos # Lymph # (Auto) [place] # (Auto) Eos # (Auto) Seg Neutrophils % Seg Neuts % (Manual) Baso # (Auto) Lymphocytes % (Manual) Monocytes % (Manual) Eosinophils % (Manual) Basophils % (Manual) Seg Neutrophils # Seg Neutrophils # Man Lymphocytes # (Manual) Monocytes # (Manual) Eosinophils # (Manual) Nucleated RBC % Basophils # (Manual) PT INR APTT Heparin Anti-Xa Level ABG pH POC ABG pO2 ABG pO2 ABG HCO3 ABG O2 Saturation ABG Base Excess POC ABG pCO2 ABG Hemoglobin ABG Oxyhemoglobin ABG Chloride ABG Glucose Oxyhemoglobin Sodium Potassium Chloride 97.2 L Carbon Dioxide 31 H BUN 23 H Creatinine 0.6 L Glucose 153 H POC Glucose 149 H 144 H Lactic Acid Calcium Phosphorus Magnesium AST ALT Lactate Dehydrogenase Total Bilirubin Direct Bilirubin CK-MB (CK-2) C-Reactive Protein NT-Pro-B Natriuret Pep Total Protein Albumin Arterial Blood Glucose Urine WBC (Auto) Urine Creatinine 12/23/19 12/23/19 12/23/19 15:30 17:49 23:31 WBC RBC Hgb Hct MCHC RDW MCV MCH Lymph % (Auto) [place] % (Auto) [place] # Eos # Lymph # (Auto) [place] # (Auto) Eos # (Auto) Seg Neutrophils % Seg Neuts % (Manual) Baso # (Auto) Lymphocytes % (Manual) Monocytes % (Manual) Eosinophils % (Manual) Basophils % (Manual) Seg Neutrophils # Seg Neutrophils # Man Lymphocytes # (Manual) Monocytes # (Manual) Eosinophils # (Manual) Nucleated RBC % Basophils # (Manual) PT INR APTT Heparin Anti-Xa Level 0.21 L ABG pH POC ABG pO2 ABG pO2 ABG HCO3 ABG O2 Saturation ABG Base Excess POC ABG pCO2 ABG Hemoglobin ABG Oxyhemoglobin ABG Chloride ABG Glucose Oxyhemoglobin Sodium Potassium Chloride Carbon Dioxide BUN Creatinine Glucose POC Glucose 192 H 151 H Lactic Acid Calcium Phosphorus Magnesium AST ALT Lactate Dehydrogenase Total Bilirubin Direct Bilirubin CK-MB (CK-2) C-Reactive Protein NT-Pro-B Natriuret Pep Total Protein Albumin Arterial Blood Glucose Urine WBC (Auto) Urine Creatinine 12/24/19 12/24/19 12/24/19 05:34 12:13 16:50 WBC RBC Hgb Hct MCHC RDW MCV MCH Lymph % (Auto) [place] % (Auto) [place] # Eos # Lymph # (Auto) [place] # (Auto) Eos # (Auto) Seg Neutrophils % Seg Neuts % (Manual) Baso # (Auto) Lymphocytes % (Manual) Monocytes % (Manual) Eosinophils % (Manual) Basophils % (Manual) Seg Neutrophils # Seg Neutrophils # Man Lymphocytes # (Manual) Monocytes # (Manual) Eosinophils # (Manual) Nucleated RBC % Basophils # (Manual) PT INR APTT Heparin Anti-Xa Level 0.16 L ABG pH POC ABG pO2 ABG pO2 ABG HCO3 ABG O2 Saturation ABG Base Excess POC ABG pCO2 ABG Hemoglobin ABG Oxyhemoglobin ABG Chloride ABG Glucose Oxyhemoglobin Sodium Potassium Chloride Carbon Dioxide BUN Creatinine Glucose POC Glucose 145 H 124 H Lactic Acid Calcium Phosphorus Magnesium AST ALT Lactate Dehydrogenase Total Bilirubin Direct Bilirubin CK-MB (CK-2) C-Reactive Protein NT-Pro-B Natriuret Pep Total Protein Albumin Arterial Blood Glucose Urine WBC (Auto) Urine Creatinine 12/24/19 12/25/19 12/25/19 17:53 00:14 04:18 WBC 12.9 H RBC 3.30 L Hgb 9.1 L Hct 28.8 L MCHC RDW 16.4 H MCV MCH Lymph % (Auto) [place] % (Auto) 7.8 H [place] # Eos # Lymph # (Auto) [place] # (Auto) 1.0 H Eos # (Auto) Seg Neutrophils % 75.5 H Seg Neuts % (Manual) Baso # (Auto) Lymphocytes % (Manual) Monocytes % (Manual) Eosinophils % (Manual) Basophils % (Manual) Seg Neutrophils # 9.7 H Seg Neutrophils # Man Lymphocytes # (Manual) Monocytes # (Manual) Eosinophils # (Manual) Nucleated RBC % Basophils # (Manual) PT INR APTT Heparin Anti-Xa Level ABG pH POC ABG pO2 ABG pO2 ABG HCO3 ABG O2 Saturation ABG Base Excess POC ABG pCO2 ABG Hemoglobin ABG Oxyhemoglobin ABG Chloride ABG Glucose Oxyhemoglobin Sodium Potassium Chloride Carbon Dioxide BUN Creatinine Glucose POC Glucose 164 H 148 H Lactic Acid Calcium Phosphorus Magnesium AST ALT Lactate Dehydrogenase Total Bilirubin Direct Bilirubin CK-MB (CK-2) C-Reactive Protein NT-Pro-B Natriuret Pep Total Protein Albumin Arterial Blood Glucose Urine WBC (Auto) Urine Creatinine 12/25/19 12/25/19 12/25/19 04:18 05:38 11:44 WBC RBC Hgb Hct MCHC RDW MCV MCH Lymph % (Auto) [place] % (Auto) [place] # Eos # Lymph # (Auto) [place] # (Auto) Eos # (Auto) Seg Neutrophils % Seg Neuts % (Manual) Baso # (Auto) Lymphocytes % (Manual) Monocytes % (Manual) Eosinophils % (Manual) Basophils % (Manual) Seg Neutrophils # Seg Neutrophils # Man Lymphocytes # (Manual) Monocytes # (Manual) Eosinophils # (Manual) Nucleated RBC % Basophils # (Manual) PT INR APTT Heparin Anti-Xa Level ABG pH POC ABG pO2 ABG pO2 ABG HCO3 ABG O2 Saturation ABG Base Excess POC ABG pCO2 ABG Hemoglobin ABG Oxyhemoglobin ABG Chloride ABG Glucose Oxyhemoglobin Sodium Potassium Chloride Carbon Dioxide 33 H BUN 27 H Creatinine 0.6 L Glucose 132 H POC Glucose 152 H 166 H Lactic Acid Calcium Phosphorus Magnesium AST ALT Lactate Dehydrogenase Total Bilirubin Direct Bilirubin CK-MB (CK-2) C-Reactive Protein NT-Pro-B Natriuret Pep Total Protein Albumin Arterial Blood Glucose Urine WBC (Auto) Urine Creatinine 12/25/19 12/26/19 12/26/19 18:29 00:17 00:18 WBC RBC Hgb Hct MCHC RDW MCV MCH Lymph % (Auto) [place] % (Auto) [place] # Eos # Lymph # (Auto) [place] # (Auto) Eos # (Auto) Seg Neutrophils % Seg Neuts % (Manual) Baso # (Auto) Lymphocytes % (Manual) Monocytes % (Manual) Eosinophils % (Manual) Basophils % (Manual) Seg Neutrophils # Seg Neutrophils # Man Lymphocytes # (Manual) Monocytes # (Manual) Eosinophils # (Manual) Nucleated RBC % Basophils # (Manual) PT INR APTT Heparin Anti-Xa Level ABG pH POC ABG pO2 ABG pO2 ABG HCO3 ABG O2 Saturation ABG Base Excess POC ABG pCO2 ABG Hemoglobin ABG Oxyhemoglobin ABG Chloride ABG Glucose Oxyhemoglobin Sodium Potassium Chloride 97.8 L Carbon Dioxide BUN 25 H Creatinine 0.6 L Glucose 140 H POC Glucose 194 H 151 H Lactic Acid Calcium Phosphorus Magnesium AST ALT Lactate Dehydrogenase Total Bilirubin Direct Bilirubin CK-MB (CK-2) C-Reactive Protein NT-Pro-B Natriuret Pep Total Protein Albumin Arterial Blood Glucose Urine WBC (Auto) Urine Creatinine 12/26/19 12/26/19 12/26/19 05:36 11:41 17:50 WBC RBC Hgb Hct MCHC RDW MCV MCH Lymph % (Auto) [place] % (Auto) [place] # Eos # Lymph # (Auto) [place] # (Auto) Eos # (Auto) Seg Neutrophils % Seg Neuts % (Manual) Baso # (Auto) Lymphocytes % (Manual) Monocytes % (Manual) Eosinophils % (Manual) Basophils % (Manual) Seg Neutrophils # Seg Neutrophils # Man Lymphocytes # (Manual) Monocytes # (Manual) Eosinophils # (Manual) Nucleated RBC % Basophils # (Manual) PT INR APTT Heparin Anti-Xa Level ABG pH POC ABG pO2 ABG pO2 ABG HCO3 ABG O2 Saturation ABG Base Excess POC ABG pCO2 ABG Hemoglobin ABG Oxyhemoglobin ABG Chloride ABG Glucose Oxyhemoglobin Sodium Potassium Chloride Carbon Dioxide BUN Creatinine Glucose POC Glucose 156 H 148 H 139 H Lactic Acid Calcium Phosphorus Magnesium AST ALT Lactate Dehydrogenase Total Bilirubin Direct Bilirubin CK-MB (CK-2) C-Reactive Protein NT-Pro-B Natriuret Pep Total Protein Albumin Arterial Blood Glucose Urine WBC (Auto) Urine Creatinine 12/26/19 12/27/19 12/27/19 23:19 05:34 12:02 WBC RBC Hgb Hct MCHC RDW MCV MCH Lymph % (Auto) [place] % (Auto) [place] # Eos # Lymph # (Auto) [place] # (Auto) Eos # (Auto) Seg Neutrophils % Seg Neuts % (Manual) Baso # (Auto) Lymphocytes % (Manual) Monocytes % (Manual) Eosinophils % (Manual) Basophils % (Manual) Seg Neutrophils # Seg Neutrophils # Man Lymphocytes # (Manual) Monocytes # (Manual) Eosinophils # (Manual) Nucleated RBC % Basophils # (Manual) PT INR APTT Heparin Anti-Xa Level ABG pH POC ABG pO2 ABG pO2 ABG HCO3 ABG O2 Saturation ABG Base Excess POC ABG pCO2 ABG Hemoglobin ABG Oxyhemoglobin ABG Chloride ABG Glucose Oxyhemoglobin Sodium Potassium Chloride Carbon Dioxide BUN Creatinine Glucose POC Glucose 161 H 145 H 157 H Lactic Acid Calcium Phosphorus Magnesium AST ALT Lactate Dehydrogenase Total Bilirubin Direct Bilirubin CK-MB (CK-2) C-Reactive Protein NT-Pro-B Natriuret Pep Total Protein Albumin Arterial Blood Glucose Urine WBC (Auto) Urine Creatinine 12/27/19 12/27/19 12/27/19 17:35 20:11 23:00 WBC RBC Hgb Hct MCHC RDW MCV MCH Lymph % (Auto) [place] % (Auto) [place] # Eos # Lymph # (Auto) [place] # (Auto) Eos # (Auto) Seg Neutrophils % Seg Neuts % (Manual) Baso # (Auto) Lymphocytes % (Manual) Monocytes % (Manual) Eosinophils % (Manual) Basophils % (Manual) Seg Neutrophils # Seg Neutrophils # Man Lymphocytes # (Manual) Monocytes # (Manual) Eosinophils # (Manual) Nucleated RBC % Basophils # (Manual) PT INR APTT Heparin Anti-Xa Level 0.19 L ABG pH POC ABG pO2 ABG pO2 ABG HCO3 ABG O2 Saturation ABG Base Excess POC ABG pCO2 ABG Hemoglobin ABG Oxyhemoglobin ABG Chloride ABG Glucose Oxyhemoglobin Sodium Potassium Chloride Carbon Dioxide BUN Creatinine Glucose POC Glucose 158 H 155 H Lactic Acid Calcium Phosphorus Magnesium AST ALT Lactate Dehydrogenase Total Bilirubin Direct Bilirubin CK-MB (CK-2) C-Reactive Protein NT-Pro-B Natriuret Pep Total Protein Albumin Arterial Blood Glucose Urine WBC (Auto) Urine Creatinine 12/27/19 12/28/19 12/28/19 23:45 02:41 02:41 WBC 13.0 H RBC 3.48 L Hgb 9.5 L Hct 30.6 L MCHC 31 L RDW 16.6 H MCV MCH 27 L Lymph % (Auto) 13.0 L [place] % (Auto) 8.0 H [place] # Eos # Lymph # (Auto) [place] # (Auto) 1.0 H Eos # (Auto) Seg Neutrophils % 76.3 H Seg Neuts % (Manual) Baso # (Auto) Lymphocytes % (Manual) Monocytes % (Manual) Eosinophils % (Manual) Basophils % (Manual) Seg Neutrophils # 9.9 H Seg Neutrophils # Man Lymphocytes # (Manual) Monocytes # (Manual) Eosinophils # (Manual) Nucleated RBC % Basophils # (Manual) PT INR APTT Heparin Anti-Xa Level ABG pH POC ABG pO2 ABG pO2 ABG HCO3 ABG O2 Saturation ABG Base Excess POC ABG pCO2 ABG Hemoglobin ABG Oxyhemoglobin ABG Chloride ABG Glucose Oxyhemoglobin Sodium Potassium Chloride Carbon Dioxide BUN 22 H Creatinine 0.6 L Glucose 101 H POC Glucose 130 H Lactic Acid Calcium Phosphorus Magnesium AST ALT Lactate Dehydrogenase Total Bilirubin Direct Bilirubin CK-MB (CK-2) C-Reactive Protein NT-Pro-B Natriuret Pep Total Protein Albumin Arterial Blood Glucose Urine WBC (Auto) Urine Creatinine 12/28/19 12/28/19 12/28/19 06:00 12:34 18:13 WBC RBC Hgb Hct MCHC RDW MCV MCH Lymph % (Auto) [place] % (Auto) [place] # Eos # Lymph # (Auto) [place] # (Auto) Eos # (Auto) Seg Neutrophils % Seg Neuts % (Manual) Baso # (Auto) Lymphocytes % (Manual) Monocytes % (Manual) Eosinophils % (Manual) Basophils % (Manual) Seg Neutrophils # Seg Neutrophils # Man Lymphocytes # (Manual) Monocytes # (Manual) Eosinophils # (Manual) Nucleated RBC % Basophils # (Manual) PT INR APTT Heparin Anti-Xa Level ABG pH POC ABG pO2 ABG pO2 ABG HCO3 ABG O2 Saturation ABG Base Excess POC ABG pCO2 ABG Hemoglobin ABG Oxyhemoglobin ABG Chloride ABG Glucose Oxyhemoglobin Sodium Potassium Chloride Carbon Dioxide BUN Creatinine Glucose POC Glucose 150 H 161 H 128 H Lactic Acid Calcium Phosphorus Magnesium AST ALT Lactate Dehydrogenase Total Bilirubin Direct Bilirubin CK-MB (CK-2) C-Reactive Protein NT-Pro-B Natriuret Pep Total Protein Albumin Arterial Blood Glucose Urine WBC (Auto) Urine Creatinine 12/28/19 12/29/19 12/29/19 23:36 05:21 11:40 WBC RBC Hgb Hct MCHC RDW MCV MCH Lymph % (Auto) [place] % (Auto) [place] # Eos # Lymph # (Auto) [place] # (Auto) Eos # (Auto) Seg Neutrophils % Seg Neuts % (Manual) Baso # (Auto) Lymphocytes % (Manual) Monocytes % (Manual) Eosinophils % (Manual) Basophils % (Manual) Seg Neutrophils # Seg Neutrophils # Man Lymphocytes # (Manual) Monocytes # (Manual) Eosinophils # (Manual) Nucleated RBC % Basophils # (Manual) PT INR APTT Heparin Anti-Xa Level ABG pH POC ABG pO2 ABG pO2 ABG HCO3 ABG O2 Saturation ABG Base Excess POC ABG pCO2 ABG Hemoglobin ABG Oxyhemoglobin ABG Chloride ABG Glucose Oxyhemoglobin Sodium Potassium Chloride Carbon Dioxide BUN Creatinine Glucose POC Glucose 137 H 136 H 166 H Lactic Acid Calcium Phosphorus Magnesium AST ALT Lactate Dehydrogenase Total Bilirubin Direct Bilirubin CK-MB (CK-2) C-Reactive Protein NT-Pro-B Natriuret Pep Total Protein Albumin Arterial Blood Glucose Urine WBC (Auto) Urine Creatinine 12/29/19 12/29/19 12/29/19 17:23 19:21 23:38 WBC RBC Hgb Hct MCHC RDW MCV MCH Lymph % (Auto) [place] % (Auto) [place] # Eos # Lymph # (Auto) [place] # (Auto) Eos # (Auto) Seg Neutrophils % Seg Neuts % (Manual) Baso # (Auto) Lymphocytes % (Manual) Monocytes % (Manual) Eosinophils % (Manual) Basophils % (Manual) Seg Neutrophils # Seg Neutrophils # Man Lymphocytes # (Manual) Monocytes # (Manual) Eosinophils # (Manual) Nucleated RBC % Basophils # (Manual) PT INR APTT Heparin Anti-Xa Level 0.20 L ABG pH POC ABG pO2 ABG pO2 ABG HCO3 ABG O2 Saturation ABG Base Excess POC ABG pCO2 ABG Hemoglobin ABG Oxyhemoglobin ABG Chloride ABG Glucose Oxyhemoglobin Sodium Potassium Chloride Carbon Dioxide BUN Creatinine Glucose POC Glucose 144 H 141 H Lactic Acid Calcium Phosphorus Magnesium AST ALT Lactate Dehydrogenase Total Bilirubin Direct Bilirubin CK-MB (CK-2) C-Reactive Protein NT-Pro-B Natriuret Pep Total Protein Albumin Arterial Blood Glucose Urine WBC (Auto) Urine Creatinine 12/30/19 12/30/19 12/30/19 03:58 03:58 04:59 WBC RBC 3.54 L Hgb 9.8 L Hct 30.7 L MCHC RDW 16.8 H MCV MCH Lymph % (Auto) [place] % (Auto) [place] # Eos # Lymph # (Auto) [place] # (Auto) Eos # (Auto) Seg Neutrophils % Seg Neuts % (Manual) Baso # (Auto) Lymphocytes % (Manual) Monocytes % (Manual) Eosinophils % (Manual) Basophils % (Manual) Seg Neutrophils # Seg Neutrophils # Man Lymphocytes # (Manual) Monocytes # (Manual) Eosinophils # (Manual) Nucleated RBC % Basophils # (Manual) PT INR APTT Heparin Anti-Xa Level ABG pH POC ABG pO2 ABG pO2 ABG HCO3 29.8 H ABG O2 Saturation ABG Base Excess 4.8 H POC ABG pCO2 ABG Hemoglobin 11.2 L ABG Oxyhemoglobin ABG Chloride ABG Glucose Oxyhemoglobin 93.8 L Sodium Potassium Chloride 97.8 L Carbon Dioxide BUN 26 H Creatinine Glucose 168 H POC Glucose Lactic Acid Calcium Phosphorus Magnesium AST ALT Lactate Dehydrogenase Total Bilirubin Direct Bilirubin CK-MB (CK-2) C-Reactive Protein NT-Pro-B Natriuret Pep Total Protein Albumin Arterial Blood Glucose Urine WBC (Auto) Urine Creatinine 12/30/19 12/30/19 12/30/19 05:45 11:34 17:28 WBC RBC Hgb Hct MCHC RDW MCV MCH Lymph % (Auto) [place] % (Auto) [place] # Eos # Lymph # (Auto) [place] # (Auto) Eos # (Auto) Seg Neutrophils % Seg Neuts % (Manual) Baso # (Auto) Lymphocytes % (Manual) Monocytes % (Manual) Eosinophils % (Manual) Basophils % (Manual) Seg Neutrophils # Seg Neutrophils # Man Lymphocytes # (Manual) Monocytes # (Manual) Eosinophils # (Manual) Nucleated RBC % Basophils # (Manual) PT INR APTT Heparin Anti-Xa Level ABG pH POC ABG pO2 ABG pO2 ABG HCO3 ABG O2 Saturation ABG Base Excess POC ABG pCO2 ABG Hemoglobin ABG Oxyhemoglobin ABG Chloride ABG Glucose Oxyhemoglobin Sodium Potassium Chloride Carbon Dioxide BUN Creatinine Glucose POC Glucose 163 H 180 H 150 H Lactic Acid Calcium Phosphorus Magnesium AST ALT Lactate Dehydrogenase Total Bilirubin Direct Bilirubin CK-MB (CK-2) C-Reactive Protein NT-Pro-B Natriuret Pep Total Protein Albumin Arterial Blood Glucose Urine WBC (Auto) Urine Creatinine 10/07/20 10/08/20 10/08/20 23:43 04:55 05:07 WBC RBC Hgb Hct MCHC RDW MCV MCH Lymph % (Auto) [place] % (Auto) [place] # Eos # Lymph # (Auto) [place] # (Auto) Eos # (Auto) Seg Neutrophils % Seg Neuts % (Manual) Baso # (Auto) Lymphocytes % (Manual) Monocytes % (Manual) Eosinophils % (Manual) Basophils % (Manual) Seg Neutrophils # Seg Neutrophils # Man Lymphocytes # (Manual) Monocytes # (Manual) Eosinophils # (Manual) Nucleated RBC % Basophils # (Manual) PT INR APTT Heparin Anti-Xa Level ABG pH POC ABG pO2 ABG pO2 ABG HCO3 ABG O2 Saturation ABG Base Excess POC ABG pCO2 ABG Hemoglobin ABG Oxyhemoglobin ABG Chloride ABG Glucose Oxyhemoglobin Sodium Potassium 5.6 H D Chloride Carbon Dioxide BUN 33 H Creatinine Glucose 131 H POC Glucose 142 H 134 H Lactic Acid Calcium Phosphorus Magnesium AST ALT Lactate Dehydrogenase Total Bilirubin Direct Bilirubin CK-MB (CK-2) C-Reactive Protein NT-Pro-B Natriuret Pep Total Protein Albumin Arterial Blood Glucose Urine WBC (Auto) Urine Creatinine 12/31/19 12/31/19 12/31/19 11:30 17:19 17:36 WBC RBC Hgb Hct MCHC RDW MCV MCH Lymph % (Auto) [place] % (Auto) [place] # Eos # Lymph # (Auto) [place] # (Auto) Eos # (Auto) Seg Neutrophils % Seg Neuts % (Manual) Baso # (Auto) Lymphocytes % (Manual) Monocytes % (Manual) Eosinophils % (Manual) Basophils % (Manual) Seg Neutrophils # Seg Neutrophils # Man Lymphocytes # (Manual) Monocytes # (Manual) Eosinophils # (Manual) Nucleated RBC % Basophils # (Manual) PT INR APTT Heparin Anti-Xa Level ABG pH POC ABG pO2 ABG pO2 ABG HCO3 ABG O2 Saturation ABG Base Excess POC ABG pCO2 ABG Hemoglobin ABG Oxyhemoglobin ABG Chloride ABG Glucose Oxyhemoglobin Sodium Potassium Chloride Carbon Dioxide BUN 35 H Creatinine Glucose 156 H POC Glucose 158 H 181 H Lactic Acid Calcium Phosphorus Magnesium AST ALT Lactate Dehydrogenase Total Bilirubin Direct Bilirubin CK-MB (CK-2) C-Reactive Protein NT-Pro-B Natriuret Pep Total Protein Albumin Arterial Blood Glucose Urine WBC (Auto) Urine Creatinine 12/31/19 12/31/19 12/31/19 18:16 19:41 21:53 WBC RBC Hgb Hct MCHC RDW MCV MCH Lymph % (Auto) [place] % (Auto) [place] # Eos # Lymph # (Auto) [place] # (Auto) Eos # (Auto) Seg Neutrophils % Seg Neuts % (Manual) Baso # (Auto) Lymphocytes % (Manual) Monocytes % (Manual) Eosinophils % (Manual) Basophils % (Manual) Seg Neutrophils # Seg Neutrophils # Man Lymphocytes # (Manual) Monocytes # (Manual) Eosinophils # (Manual) Nucleated RBC % Basophils # (Manual) PT INR APTT Heparin Anti-Xa Level 0.20 L ABG pH POC ABG pO2 ABG pO2 ABG HCO3 ABG O2 Saturation ABG Base Excess POC ABG pCO2 ABG Hemoglobin ABG Oxyhemoglobin ABG Chloride ABG Glucose Oxyhemoglobin Sodium Potassium Chloride Carbon Dioxide BUN 34 H Creatinine Glucose 169 H POC Glucose 141 H Lactic Acid Calcium Phosphorus Magnesium AST ALT Lactate Dehydrogenase Total Bilirubin Direct Bilirubin CK-MB (CK-2) C-Reactive Protein NT-Pro-B Natriuret Pep Total Protein Albumin Arterial Blood Glucose Urine WBC (Auto) Urine Creatinine 12/31/19 01/01/20 01/01/20 23:51 05:17 10:40 WBC RBC Hgb Hct MCHC RDW MCV MCH Lymph % (Auto) [place] % (Auto) [place] # Eos # Lymph # (Auto) [place] # (Auto) Eos # (Auto) Seg Neutrophils % Seg Neuts % (Manual) Baso # (Auto) Lymphocytes % (Manual) Monocytes % (Manual) Eosinophils % (Manual) Basophils % (Manual) Seg Neutrophils # Seg Neutrophils # Man Lymphocytes # (Manual) Monocytes # (Manual) Eosinophils # (Manual) Nucleated RBC % Basophils # (Manual) PT INR APTT Heparin Anti-Xa Level ABG pH POC ABG pO2 ABG pO2 ABG HCO3 ABG O2 Saturation ABG Base Excess POC ABG pCO2 ABG Hemoglobin ABG Oxyhemoglobin ABG Chloride ABG Glucose Oxyhemoglobin Sodium Potassium Chloride Carbon Dioxide BUN 31 H Creatinine 0.7 L Glucose 137 H POC Glucose 131 H 155 H Lactic Acid Calcium Phosphorus Magnesium AST 73 H ALT 97 H Lactate Dehydrogenase Total Bilirubin Direct Bilirubin CK-MB (CK-2) C-Reactive Protein NT-Pro-B Natriuret Pep 3866 H Total Protein Albumin 2.8 L Arterial Blood Glucose Urine WBC (Auto) Urine Creatinine 01/01/20 01/01/20 01/01/20 12:26 15:33 17:53 WBC 14.3 H RBC 3.35 L Hgb 9.1 L Hct 28.8 L MCHC RDW 17.0 H MCV MCH 27 L Lymph % (Auto) 7.0 L [place] % (Auto) 7.6 H [place] # Eos # Lymph # (Auto) 1.0 L [place] # (Auto) 1.1 H Eos # (Auto) Seg Neutrophils % 83.3 H Seg Neuts % (Manual) Baso # (Auto) Lymphocytes % (Manual) Monocytes % (Manual) Eosinophils % (Manual) Basophils % (Manual) Seg Neutrophils # 12.0 H Seg Neutrophils # Man Lymphocytes # (Manual) Monocytes # (Manual) Eosinophils # (Manual) Nucleated RBC % Basophils # (Manual) PT INR APTT Heparin Anti-Xa Level ABG pH POC ABG pO2 ABG pO2 ABG HCO3 ABG O2 Saturation ABG Base Excess POC ABG pCO2 ABG Hemoglobin ABG Oxyhemoglobin ABG Chloride ABG Glucose Oxyhemoglobin Sodium Potassium Chloride Carbon Dioxide BUN Creatinine Glucose POC Glucose 128 H 128 H Lactic Acid Calcium Phosphorus Magnesium AST ALT Lactate Dehydrogenase Total Bilirubin Direct Bilirubin CK-MB (CK-2) C-Reactive Protein NT-Pro-B Natriuret Pep Total Protein Albumin Arterial Blood Glucose Urine WBC (Auto) Urine Creatinine 01/01/20 01/02/20 01/02/20 23:04 05:39 07:00 WBC RBC Hgb Hct MCHC RDW MCV MCH Lymph % (Auto) [place] % (Auto) [place] # Eos # Lymph # (Auto) [place] # (Auto) Eos # (Auto) Seg Neutrophils % Seg Neuts % (Manual) Baso # (Auto) Lymphocytes % (Manual) Monocytes % (Manual) Eosinophils % (Manual) Basophils % (Manual) Seg Neutrophils # Seg Neutrophils # Man Lymphocytes # (Manual) Monocytes # (Manual) Eosinophils # (Manual) Nucleated RBC % Basophils # (Manual) PT INR APTT Heparin Anti-Xa Level 0.13 L ABG pH POC ABG pO2 ABG pO2 ABG HCO3 ABG O2 Saturation ABG Base Excess POC ABG pCO2 ABG Hemoglobin ABG Oxyhemoglobin ABG Chloride ABG Glucose Oxyhemoglobin Sodium Potassium Chloride Carbon Dioxide BUN Creatinine Glucose POC Glucose 120 H 169 H Lactic Acid Calcium Phosphorus Magnesium AST ALT Lactate Dehydrogenase Total Bilirubin Direct Bilirubin CK-MB (CK-2) C-Reactive Protein NT-Pro-B Natriuret Pep Total Protein Albumin Arterial Blood Glucose Urine WBC (Auto) Urine Creatinine 01/02/20 01/02/20 01/02/20 12:15 14:06 17:58 WBC RBC Hgb Hct MCHC RDW MCV MCH Lymph % (Auto) [place] % (Auto) [place] # Eos # Lymph # (Auto) [place] # (Auto) Eos # (Auto) Seg Neutrophils % Seg Neuts % (Manual) Baso # (Auto) Lymphocytes % (Manual) Monocytes % (Manual) Eosinophils % (Manual) Basophils % (Manual) Seg Neutrophils # Seg Neutrophils # Man Lymphocytes # (Manual) Monocytes # (Manual) Eosinophils # (Manual) Nucleated RBC % Basophils # (Manual) PT INR APTT Heparin Anti-Xa Level < 0.10 L ABG pH POC ABG pO2 ABG pO2 ABG HCO3 ABG O2 Saturation ABG Base Excess POC ABG pCO2 ABG Hemoglobin ABG Oxyhemoglobin ABG Chloride ABG Glucose Oxyhemoglobin Sodium Potassium Chloride Carbon Dioxide BUN Creatinine Glucose POC Glucose 190 H 198 H Lactic Acid Calcium Phosphorus Magnesium AST ALT Lactate Dehydrogenase Total Bilirubin Direct Bilirubin CK-MB (CK-2) C-Reactive Protein NT-Pro-B Natriuret Pep Total Protein Albumin Arterial Blood Glucose Urine WBC (Auto) Urine Creatinine 01/02/20 01/02/20 01/03/20 21:43 23:33 05:42 WBC RBC Hgb Hct MCHC RDW MCV MCH Lymph % (Auto) [place] % (Auto) [place] # Eos # Lymph # (Auto) [place] # (Auto) Eos # (Auto) Seg Neutrophils % Seg Neuts % (Manual) Baso # (Auto) Lymphocytes % (Manual) Monocytes % (Manual) Eosinophils % (Manual) Basophils % (Manual) Seg Neutrophils # Seg Neutrophils # Man Lymphocytes # (Manual) Monocytes # (Manual) Eosinophils # (Manual) Nucleated RBC % Basophils # (Manual) PT INR APTT Heparin Anti-Xa Level 0.10 L ABG pH POC ABG pO2 ABG pO2 ABG HCO3 ABG O2 Saturation ABG Base Excess POC ABG pCO2 ABG Hemoglobin ABG Oxyhemoglobin ABG Chloride ABG Glucose Oxyhemoglobin Sodium Potassium Chloride Carbon Dioxide BUN Creatinine Glucose POC Glucose 180 H 163 H Lactic Acid Calcium Phosphorus Magnesium AST ALT Lactate Dehydrogenase Total Bilirubin Direct Bilirubin CK-MB (CK-2) C-Reactive Protein NT-Pro-B Natriuret Pep Total Protein Albumin Arterial Blood Glucose Urine WBC (Auto) Urine Creatinine 01/03/20 01/03/20 01/03/20 06:50 07:25 07:45 WBC 12.1 H RBC 3.35 L Hgb 9.0 L Hct 28.9 L MCHC 31 L RDW 16.6 H MCV MCH 27 L Lymph % (Auto) 13.0 L [place] % (Auto) 8.6 H [place] # Eos # Lymph # (Auto) [place] # (Auto) 1.0 H Eos # (Auto) Seg Neutrophils % 75.9 H Seg Neuts % (Manual) Baso # (Auto) Lymphocytes % (Manual) Monocytes % (Manual) Eosinophils % (Manual) Basophils % (Manual) Seg Neutrophils # 9.2 H Seg Neutrophils # Man Lymphocytes # (Manual) Monocytes # (Manual) Eosinophils # (Manual) Nucleated RBC % Basophils # (Manual) PT INR APTT Heparin Anti-Xa Level 0.29 L ABG pH POC ABG pO2 ABG pO2 ABG HCO3 ABG O2 Saturation ABG Base Excess POC ABG pCO2 ABG Hemoglobin ABG Oxyhemoglobin ABG Chloride ABG Glucose Oxyhemoglobin Sodium Potassium 3.3 L D Chloride Carbon Dioxide 35 H D BUN 23 H Creatinine 0.6 L Glucose 149 H POC Glucose Lactic Acid Calcium Phosphorus Magnesium AST ALT 88 H Lactate Dehydrogenase Total Bilirubin Direct Bilirubin CK-MB (CK-2) C-Reactive Protein NT-Pro-B Natriuret Pep Total Protein 6.2 L Albumin 2.9 L Arterial Blood Glucose Urine WBC (Auto) Urine Creatinine 01/03/20 01/03/20 01/03/20 12:05 17:42 18:30 WBC RBC Hgb Hct MCHC RDW MCV MCH Lymph % (Auto) [place] % (Auto) [place] # Eos # Lymph # (Auto) [place] # (Auto) Eos # (Auto) Seg Neutrophils % Seg Neuts % (Manual) Baso # (Auto) Lymphocytes % (Manual) Monocytes % (Manual) Eosinophils % (Manual) Basophils % (Manual) Seg Neutrophils # Seg Neutrophils # Man Lymphocytes # (Manual) Monocytes # (Manual) Eosinophils # (Manual) Nucleated RBC % Basophils # (Manual) PT INR APTT Heparin Anti-Xa Level ABG pH POC ABG pO2 ABG pO2 70.7 L ABG HCO3 36.1 H ABG O2 Saturation 94.4 L ABG Base Excess 10.0 H POC ABG pCO2 ABG Hemoglobin 9.7 L ABG Oxyhemoglobin ABG Chloride ABG Glucose Oxyhemoglobin 91.8 L Sodium Potassium Chloride Carbon Dioxide BUN Creatinine Glucose POC Glucose 128 H 132 H Lactic Acid Calcium Phosphorus Magnesium AST ALT Lactate Dehydrogenase Total Bilirubin Direct Bilirubin CK-MB (CK-2) C-Reactive Protein NT-Pro-B Natriuret Pep Total Protein Albumin Arterial Blood Glucose Urine WBC (Auto) Urine Creatinine 01/04/20 01/04/20 01/04/20 00:10 04:26 05:23 WBC RBC Hgb Hct MCHC RDW MCV MCH Lymph % (Auto) [place] % (Auto) [place] # Eos # Lymph # (Auto) [place] # (Auto) Eos # (Auto) Seg Neutrophils % Seg Neuts % (Manual) Baso # (Auto) Lymphocytes % (Manual) Monocytes % (Manual) Eosinophils % (Manual) Basophils % (Manual) Seg Neutrophils # Seg Neutrophils # Man Lymphocytes # (Manual) Monocytes # (Manual) Eosinophils # (Manual) Nucleated RBC % Basophils # (Manual) PT INR APTT Heparin Anti-Xa Level 0.16 L ABG pH POC ABG pO2 ABG pO2 ABG HCO3 ABG O2 Saturation ABG Base Excess POC ABG pCO2 ABG Hemoglobin ABG Oxyhemoglobin ABG Chloride ABG Glucose Oxyhemoglobin Sodium Potassium Chloride Carbon Dioxide BUN Creatinine Glucose POC Glucose 121 H 119 H Lactic Acid Calcium Phosphorus Magnesium AST ALT Lactate Dehydrogenase Total Bilirubin Direct Bilirubin CK-MB (CK-2) C-Reactive Protein NT-Pro-B Natriuret Pep Total Protein Albumin Arterial Blood Glucose Urine WBC (Auto) Urine Creatinine 01/04/20 01/04/20 01/04/20 09:50 09:50 12:18 WBC 15.4 H RBC 3.30 L Hgb 8.7 L Hct 28.2 L MCHC 31 L RDW 17.0 H MCV MCH 26 L Lymph % (Auto) [place] % (Auto) 7.6 H [place] # Eos # Lymph # (Auto) [place] # (Auto) 1.2 H Eos # (Auto) Seg Neutrophils % 75.4 H Seg Neuts % (Manual) Baso # (Auto) Lymphocytes % (Manual) Monocytes % (Manual) Eosinophils % (Manual) Basophils % (Manual) Seg Neutrophils # 11.6 H Seg Neutrophils # Man Lymphocytes # (Manual) Monocytes # (Manual) Eosinophils # (Manual) Nucleated RBC % Basophils # (Manual) PT INR APTT Heparin Anti-Xa Level ABG pH POC ABG pO2 ABG pO2 ABG HCO3 ABG O2 Saturation ABG Base Excess POC ABG pCO2 ABG Hemoglobin ABG Oxyhemoglobin ABG Chloride ABG Glucose Oxyhemoglobin Sodium 148 H Potassium 3.5 L Chloride Carbon Dioxide 32 H BUN Creatinine 0.6 L Glucose 114 H POC Glucose 111 H Lactic Acid Calcium Phosphorus Magnesium AST ALT 59 H Lactate Dehydrogenase Total Bilirubin Direct Bilirubin CK-MB (CK-2) C-Reactive Protein NT-Pro-B Natriuret Pep Total Protein Albumin 2.6 L Arterial Blood Glucose Urine WBC (Auto) Urine Creatinine 01/05/20 01/05/20 01/05/20 04:05 04:05 05:19 WBC 11.7 H RBC 3.50 L Hgb 9.3 L Hct 29.9 L MCHC 31 L RDW 16.6 H MCV MCH 27 L Lymph % (Auto) 13.1 L [place] % (Auto) 9.7 H [place] # Eos # Lymph # (Auto) [place] # (Auto) 1.1 H Eos # (Auto) Seg Neutrophils % 74.0 H Seg Neuts % (Manual) Baso # (Auto) Lymphocytes % (Manual) Monocytes % (Manual) Eosinophils % (Manual) Basophils % (Manual) Seg Neutrophils # 8.6 H Seg Neutrophils # Man Lymphocytes # (Manual) Monocytes # (Manual) Eosinophils # (Manual) Nucleated RBC % Basophils # (Manual) PT INR APTT Heparin Anti-Xa Level ABG pH POC ABG pO2 ABG pO2 ABG HCO3 ABG O2 Saturation ABG Base Excess POC ABG pCO2 ABG Hemoglobin ABG Oxyhemoglobin ABG Chloride ABG Glucose Oxyhemoglobin Sodium 151 H Potassium Chloride Carbon Dioxide 34 H BUN Creatinine 0.7 L Glucose POC Glucose 112 H Lactic Acid Calcium Phosphorus Magnesium AST ALT 59 H Lactate Dehydrogenase Total Bilirubin Direct Bilirubin CK-MB (CK-2) C-Reactive Protein NT-Pro-B Natriuret Pep Total Protein 5.8 L Albumin 2.6 L Arterial Blood Glucose Urine WBC (Auto) Urine Creatinine 01/05/20 01/06/20 01/06/20 16:04 00:23 04:44 WBC RBC 3.36 L Hgb 8.9 L Hct 28.7 L MCHC 31 L RDW 16.9 H MCV MCH 26 L Lymph % (Auto) [place] % (Auto) 9.4 H [place] # Eos # Lymph # (Auto) [place] # (Auto) Eos # (Auto) Seg Neutrophils % Seg Neuts % (Manual) Baso # (Auto) Lymphocytes % (Manual) Monocytes % (Manual) Eosinophils % (Manual) Basophils % (Manual) Seg Neutrophils # Seg Neutrophils # Man Lymphocytes # (Manual) Monocytes # (Manual) Eosinophils # (Manual) Nucleated RBC % Basophils # (Manual) PT INR APTT Heparin Anti-Xa Level ABG pH POC ABG pO2 ABG pO2 ABG HCO3 ABG O2 Saturation ABG Base Excess POC ABG pCO2 ABG Hemoglobin ABG Oxyhemoglobin ABG Chloride ABG Glucose Oxyhemoglobin Sodium 151 H Potassium 3.2 L Chloride Carbon Dioxide 34 H BUN Creatinine 0.6 L Glucose POC Glucose 107 H Lactic Acid Calcium Phosphorus Magnesium AST ALT Lactate Dehydrogenase Total Bilirubin Direct Bilirubin CK-MB (CK-2) C-Reactive Protein NT-Pro-B Natriuret Pep Total Protein Albumin Arterial Blood Glucose Urine WBC (Auto) Urine Creatinine 01/06/20 01/06/20 01/06/20 04:44 05:33 12:04 WBC RBC Hgb Hct MCHC RDW MCV MCH Lymph % (Auto) [place] % (Auto) [place] # Eos # Lymph # (Auto) [place] # (Auto) Eos # (Auto) Seg Neutrophils % Seg Neuts % (Manual) Baso # (Auto) Lymphocytes % (Manual) Monocytes % (Manual) Eosinophils % (Manual) Basophils % (Manual) Seg Neutrophils # Seg Neutrophils # Man Lymphocytes # (Manual) Monocytes # (Manual) Eosinophils # (Manual) Nucleated RBC % Basophils # (Manual) PT INR APTT Heparin Anti-Xa Level ABG pH POC ABG pO2 ABG pO2 ABG HCO3 ABG O2 Saturation ABG Base Excess POC ABG pCO2 ABG Hemoglobin ABG Oxyhemoglobin ABG Chloride ABG Glucose Oxyhemoglobin Sodium 151 H Potassium 3.4 L Chloride Carbon Dioxide 33 H BUN Creatinine 0.6 L Glucose 118 H POC Glucose 118 H 123 H Lactic Acid Calcium Phosphorus Magnesium AST ALT Lactate Dehydrogenase Total Bilirubin Direct Bilirubin CK-MB (CK-2) C-Reactive Protein NT-Pro-B Natriuret Pep Total Protein 6.2 L Albumin 2.6 L Arterial Blood Glucose Urine WBC (Auto) Urine Creatinine 01/06/20 01/07/20 01/07/20 17:54 00:06 04:10 WBC RBC 3.42 L Hgb 8.9 L Hct 29.0 L MCHC 31 L RDW 17.1 H MCV MCH 26 L Lymph % (Auto) [place] % (Auto) 8.4 H [place] # Eos # Lymph # (Auto) [place] # (Auto) Eos # (Auto) Seg Neutrophils % Seg Neuts % (Manual) Baso # (Auto) Lymphocytes % (Manual) Monocytes % (Manual) Eosinophils % (Manual) Basophils % (Manual) Seg Neutrophils # Seg Neutrophils # Man Lymphocytes # (Manual) Monocytes # (Manual) Eosinophils # (Manual) Nucleated RBC % Basophils # (Manual) PT INR APTT Heparin Anti-Xa Level ABG pH POC ABG pO2 ABG pO2 ABG HCO3 ABG O2 Saturation ABG Base Excess POC ABG pCO2 ABG Hemoglobin ABG Oxyhemoglobin ABG Chloride ABG Glucose Oxyhemoglobin Sodium Potassium Chloride Carbon Dioxide BUN Creatinine Glucose POC Glucose 112 H 126 H Lactic Acid Calcium Phosphorus Magnesium AST ALT Lactate Dehydrogenase Total Bilirubin Direct Bilirubin CK-MB (CK-2) C-Reactive Protein NT-Pro-B Natriuret Pep Total Protein Albumin Arterial Blood Glucose Urine WBC (Auto) Urine Creatinine 01/07/20 01/07/20 01/07/20 04:10 05:59 12:27 WBC RBC Hgb Hct MCHC RDW MCV MCH Lymph % (Auto) [place] % (Auto) [place] # Eos # Lymph # (Auto) [place] # (Auto) Eos # (Auto) Seg Neutrophils % Seg Neuts % (Manual) Baso # (Auto) Lymphocytes % (Manual) Monocytes % (Manual) Eosinophils % (Manual) Basophils % (Manual) Seg Neutrophils # Seg Neutrophils # Man Lymphocytes # (Manual) Monocytes # (Manual) Eosinophils # (Manual) Nucleated RBC % Basophils # (Manual) PT INR APTT Heparin Anti-Xa Level ABG pH POC ABG pO2 ABG pO2 ABG HCO3 ABG O2 Saturation ABG Base Excess POC ABG pCO2 ABG Hemoglobin ABG Oxyhemoglobin ABG Chloride ABG Glucose Oxyhemoglobin Sodium 153 H Potassium 3.5 L Chloride Carbon Dioxide 34 H BUN Creatinine 0.6 L Glucose 121 H POC Glucose 121 H 126 H Lactic Acid Calcium Phosphorus Magnesium AST ALT Lactate Dehydrogenase Total Bilirubin Direct Bilirubin CK-MB (CK-2) C-Reactive Protein NT-Pro-B Natriuret Pep Total Protein 5.9 L Albumin 2.4 L Arterial Blood Glucose Urine WBC (Auto) Urine Creatinine 01/07/20 01/08/20 01/08/20 18:12 00:03 05:41 WBC RBC Hgb Hct MCHC RDW MCV MCH Lymph % (Auto) [place] % (Auto) [place] # Eos # Lymph # (Auto) [place] # (Auto) Eos # (Auto) Seg Neutrophils % Seg Neuts % (Manual) Baso # (Auto) Lymphocytes % (Manual) Monocytes % (Manual) Eosinophils % (Manual) Basophils % (Manual) Seg Neutrophils # Seg Neutrophils # Man Lymphocytes # (Manual) Monocytes # (Manual) Eosinophils # (Manual) Nucleated RBC % Basophils # (Manual) PT INR APTT Heparin Anti-Xa Level ABG pH POC ABG pO2 ABG pO2 ABG HCO3 ABG O2 Saturation ABG Base Excess POC ABG pCO2 ABG Hemoglobin ABG Oxyhemoglobin ABG Chloride ABG Glucose Oxyhemoglobin Sodium Potassium Chloride Carbon Dioxide BUN Creatinine Glucose POC Glucose 124 H 130 H 138 H Lactic Acid Calcium Phosphorus Magnesium AST ALT Lactate Dehydrogenase Total Bilirubin Direct Bilirubin CK-MB (CK-2) C-Reactive Protein NT-Pro-B Natriuret Pep Total Protein Albumin Arterial Blood Glucose Urine WBC (Auto) Urine Creatinine 01/08/20 01/08/20 01/08/20 09:28 11:42 18:21 WBC RBC Hgb Hct MCHC RDW MCV MCH Lymph % (Auto) [place] % (Auto) [place] # Eos # Lymph # (Auto) [place] # (Auto) Eos # (Auto) Seg Neutrophils % Seg Neuts % (Manual) Baso # (Auto) Lymphocytes % (Manual) Monocytes % (Manual) Eosinophils % (Manual) Basophils % (Manual) Seg Neutrophils # Seg Neutrophils # Man Lymphocytes # (Manual) Monocytes # (Manual) Eosinophils # (Manual) Nucleated RBC % Basophils # (Manual) PT INR APTT Heparin Anti-Xa Level ABG pH POC ABG pO2 ABG pO2 ABG HCO3 ABG O2 Saturation ABG Base Excess POC ABG pCO2 ABG Hemoglobin ABG Oxyhemoglobin ABG Chloride ABG Glucose Oxyhemoglobin Sodium Potassium Chloride Carbon Dioxide BUN Creatinine Glucose POC Glucose 181 H 150 H 129 H Lactic Acid Calcium Phosphorus Magnesium AST ALT Lactate Dehydrogenase Total Bilirubin Direct Bilirubin CK-MB (CK-2) C-Reactive Protein NT-Pro-B Natriuret Pep Total Protein Albumin Arterial Blood Glucose Urine WBC (Auto) Urine Creatinine 01/08/20 01/08/20 01/09/20 19:25 23:55 04:11 WBC RBC 3.43 L Hgb 8.9 L Hct 28.7 L MCHC 31 L RDW 17.6 H MCV MCH 26 L Lymph % (Auto) [place] % (Auto) 8.6 H [place] # Eos # Lymph # (Auto) [place] # (Auto) Eos # (Auto) Seg Neutrophils % Seg Neuts % (Manual) Baso # (Auto) Lymphocytes % (Manual) Monocytes % (Manual) Eosinophils % (Manual) Basophils % (Manual) Seg Neutrophils # Seg Neutrophils # Man Lymphocytes # (Manual) Monocytes # (Manual) Eosinophils # (Manual) Nucleated RBC % Basophils # (Manual) PT INR APTT Heparin Anti-Xa Level ABG pH POC ABG pO2 ABG pO2 ABG HCO3 ABG O2 Saturation ABG Base Excess POC ABG pCO2 ABG Hemoglobin ABG Oxyhemoglobin ABG Chloride ABG Glucose Oxyhemoglobin Sodium Potassium Chloride Carbon Dioxide BUN Creatinine 0.7 L Glucose 117 H POC Glucose 132 H Lactic Acid Calcium Phosphorus Magnesium AST ALT Lactate Dehydrogenase Total Bilirubin Direct Bilirubin CK-MB (CK-2) C-Reactive Protein NT-Pro-B Natriuret Pep Total Protein Albumin Arterial Blood Glucose Urine WBC (Auto) Urine Creatinine 01/09/20 01/09/20 01/09/20 04:11 05:38 22:58 WBC RBC Hgb Hct MCHC RDW MCV MCH Lymph % (Auto) [place] % (Auto) [place] # Eos # Lymph # (Auto) [place] # (Auto) Eos # (Auto) Seg Neutrophils % Seg Neuts % (Manual) Baso # (Auto) Lymphocytes % (Manual) Monocytes % (Manual) Eosinophils % (Manual) Basophils % (Manual) Seg Neutrophils # Seg Neutrophils # Man Lymphocytes # (Manual) Monocytes # (Manual) Eosinophils # (Manual) Nucleated RBC % Basophils # (Manual) PT INR APTT Heparin Anti-Xa Level ABG pH POC ABG pO2 ABG pO2 ABG HCO3 ABG O2 Saturation ABG Base Excess POC ABG pCO2 ABG Hemoglobin ABG Oxyhemoglobin ABG Chloride ABG Glucose Oxyhemoglobin Sodium 147 H Potassium 3.3 L D Chloride Carbon Dioxide 32 H BUN Creatinine 0.6 L Glucose 106 H POC Glucose 107 H 113 H Lactic Acid Calcium Phosphorus Magnesium AST ALT Lactate Dehydrogenase Total Bilirubin Direct Bilirubin CK-MB (CK-2) C-Reactive Protein NT-Pro-B Natriuret Pep Total Protein Albumin Arterial Blood Glucose Urine WBC (Auto) Urine Creatinine 01/10/20 01/10/20 01/10/20 04:05 11:36 17:54 WBC RBC Hgb Hct MCHC RDW MCV MCH Lymph % (Auto) [place] % (Auto) [place] # Eos # Lymph # (Auto) [place] # (Auto) Eos # (Auto) Seg Neutrophils % Seg Neuts % (Manual) Baso # (Auto) Lymphocytes % (Manual) Monocytes % (Manual) Eosinophils % (Manual) Basophils % (Manual) Seg Neutrophils # Seg Neutrophils # Man Lymphocytes # (Manual) Monocytes # (Manual) Eosinophils # (Manual) Nucleated RBC % Basophils # (Manual) PT INR APTT Heparin Anti-Xa Level ABG pH POC ABG pO2 ABG pO2 ABG HCO3 ABG O2 Saturation ABG Base Excess POC ABG pCO2 ABG Hemoglobin ABG Oxyhemoglobin ABG Chloride ABG Glucose Oxyhemoglobin Sodium Potassium Chloride Carbon Dioxide BUN Creatinine 0.7 L Glucose 110 H POC Glucose 129 H 117 H Lactic Acid Calcium Phosphorus Magnesium AST ALT Lactate Dehydrogenase Total Bilirubin Direct Bilirubin CK-MB (CK-2) C-Reactive Protein NT-Pro-B Natriuret Pep Total Protein Albumin Arterial Blood Glucose Urine WBC (Auto) Urine Creatinine 01/10/20 01/11/20 01/11/20 23:52 03:19 12:09 WBC RBC Hgb Hct MCHC RDW MCV MCH Lymph % (Auto) [place] % (Auto) [place] # Eos # Lymph # (Auto) [place] # (Auto) Eos # (Auto) Seg Neutrophils % Seg Neuts % (Manual) Baso # (Auto) Lymphocytes % (Manual) Monocytes % (Manual) Eosinophils % (Manual) Basophils % (Manual) Seg Neutrophils # Seg Neutrophils # Man Lymphocytes # (Manual) Monocytes # (Manual) Eosinophils # (Manual) Nucleated RBC % Basophils # (Manual) PT INR APTT Heparin Anti-Xa Level ABG pH POC ABG pO2 ABG pO2 ABG HCO3 ABG O2 Saturation ABG Base Excess POC ABG pCO2 ABG Hemoglobin ABG Oxyhemoglobin ABG Chloride ABG Glucose Oxyhemoglobin Sodium Potassium Chloride Carbon Dioxide BUN Creatinine Glucose POC Glucose 117 H 136 H 115 H Lactic Acid Calcium Phosphorus Magnesium AST ALT Lactate Dehydrogenase Total Bilirubin Direct Bilirubin CK-MB (CK-2) C-Reactive Protein NT-Pro-B Natriuret Pep Total Protein Albumin Arterial Blood Glucose Urine WBC (Auto) Urine Creatinine 01/11/20 01/11/20 01/12/20 18:27 23:28 00:23 WBC RBC Hgb 9.8 L Hct 31.6 L MCHC 31 L RDW 17.8 H MCV 83 L MCH 26 L Lymph % (Auto) [place] % (Auto) 8.0 H [place] # Eos # Lymph # (Auto) [place] # (Auto) Eos # (Auto) Seg Neutrophils % Seg Neuts % (Manual) Baso # (Auto) Lymphocytes % (Manual) Monocytes % (Manual) Eosinophils % (Manual) Basophils % (Manual) Seg Neutrophils # Seg Neutrophils # Man Lymphocytes # (Manual) Monocytes # (Manual) Eosinophils # (Manual) Nucleated RBC % Basophils # (Manual) PT INR APTT Heparin Anti-Xa Level ABG pH POC ABG pO2 ABG pO2 ABG HCO3 ABG O2 Saturation ABG Base Excess POC ABG pCO2 ABG Hemoglobin ABG Oxyhemoglobin ABG Chloride ABG Glucose Oxyhemoglobin Sodium Potassium Chloride Carbon Dioxide BUN Creatinine Glucose POC Glucose 118 H 122 H Lactic Acid Calcium Phosphorus Magnesium AST ALT Lactate Dehydrogenase Total Bilirubin Direct Bilirubin CK-MB (CK-2) C-Reactive Protein NT-Pro-B Natriuret Pep Total Protein Albumin Arterial Blood Glucose Urine WBC (Auto) Urine Creatinine 01/12/20 01/12/20 01/12/20 00:23 04:18 04:18 WBC RBC Hgb 9.6 L Hct 30.9 L MCHC 31 L RDW 17.3 H MCV 81 L MCH 25 L Lymph % (Auto) [place] % (Auto) [place] # Eos # Lymph # (Auto) [place] # (Auto) Eos # (Auto) Seg Neutrophils % Seg Neuts % (Manual) Baso # (Auto) Lymphocytes % (Manual) Monocytes % (Manual) Eosinophils % (Manual) Basophils % (Manual) Seg Neutrophils # Seg Neutrophils # Man Lymphocytes # (Manual) Monocytes # (Manual) Eosinophils # (Manual) Nucleated RBC % Basophils # (Manual) PT INR APTT Heparin Anti-Xa Level ABG pH POC ABG pO2 ABG pO2 ABG HCO3 ABG O2 Saturation ABG Base Excess POC ABG pCO2 ABG Hemoglobin ABG Oxyhemoglobin ABG Chloride ABG Glucose Oxyhemoglobin Sodium Potassium Chloride Carbon Dioxide BUN Creatinine 0.7 L 0.7 L Glucose 111 H 108 H POC Glucose Lactic Acid Calcium Phosphorus Magnesium AST ALT Lactate Dehydrogenase Total Bilirubin Direct Bilirubin CK-MB (CK-2) C-Reactive Protein NT-Pro-B Natriuret Pep Total Protein Albumin 2.6 L Arterial Blood Glucose Urine WBC (Auto) Urine Creatinine 01/12/20 01/12/20 01/12/20 06:03 12:27 13:58 WBC RBC Hgb Hct MCHC RDW MCV MCH Lymph % (Auto) [place] % (Auto) [place] # Eos # Lymph # (Auto) [place] # (Auto) Eos # (Auto) Seg Neutrophils % Seg Neuts % (Manual) Baso # (Auto) Lymphocytes % (Manual) Monocytes % (Manual) Eosinophils % (Manual) Basophils % (Manual) Seg Neutrophils # Seg Neutrophils # Man Lymphocytes # (Manual) Monocytes # (Manual) Eosinophils # (Manual) Nucleated RBC % Basophils # (Manual) PT INR APTT Heparin Anti-Xa Level ABG pH 7.453 H POC ABG pO2 76.6 L ABG pO2 ABG HCO3 ABG O2 Saturation ABG Base Excess POC ABG pCO2 ABG Hemoglobin 10.3 L ABG Oxyhemoglobin ABG Chloride ABG Glucose 99 H Oxyhemoglobin Sodium Potassium Chloride Carbon Dioxide BUN Creatinine Glucose POC Glucose 128 H 121 H Lactic Acid Calcium Phosphorus Magnesium AST ALT Lactate Dehydrogenase Total Bilirubin Direct Bilirubin CK-MB (CK-2) C-Reactive Protein NT-Pro-B Natriuret Pep Total Protein Albumin Arterial Blood Glucose 99 H Urine WBC (Auto) Urine Creatinine 01/12/20 01/13/20 01/13/20 18:24 12:01 17:46 WBC RBC Hgb Hct MCHC RDW MCV MCH Lymph % (Auto) [place] % (Auto) [place] # Eos # Lymph # (Auto) [place] # (Auto) Eos # (Auto) Seg Neutrophils % Seg Neuts % (Manual) Baso # (Auto) Lymphocytes % (Manual) Monocytes % (Manual) Eosinophils % (Manual) Basophils % (Manual) Seg Neutrophils # Seg Neutrophils # Man Lymphocytes # (Manual) Monocytes # (Manual) Eosinophils # (Manual) Nucleated RBC % Basophils # (Manual) PT INR APTT Heparin Anti-Xa Level ABG pH POC ABG pO2 ABG pO2 ABG HCO3 ABG O2 Saturation ABG Base Excess POC ABG pCO2 ABG Hemoglobin ABG Oxyhemoglobin ABG Chloride ABG Glucose Oxyhemoglobin Sodium Potassium Chloride Carbon Dioxide BUN Creatinine Glucose POC Glucose 119 H 107 H 124 H Lactic Acid Calcium Phosphorus Magnesium AST ALT Lactate Dehydrogenase Total Bilirubin Direct Bilirubin CK-MB (CK-2) C-Reactive Protein NT-Pro-B Natriuret Pep Total Protein Albumin Arterial Blood Glucose Urine WBC (Auto) Urine Creatinine 01/13/20 01/14/20 01/14/20 20:40 00:10 05:33 WBC RBC Hgb Hct MCHC RDW MCV MCH Lymph % (Auto) [place] % (Auto) [place] # Eos # Lymph # (Auto) [place] # (Auto) Eos # (Auto) Seg Neutrophils % Seg Neuts % (Manual) Baso # (Auto) Lymphocytes % (Manual) Monocytes % (Manual) Eosinophils % (Manual) Basophils % (Manual) Seg Neutrophils # Seg Neutrophils # Man Lymphocytes # (Manual) Monocytes # (Manual) Eosinophils # (Manual) Nucleated RBC % Basophils # (Manual) PT INR APTT Heparin Anti-Xa Level ABG pH POC ABG pO2 ABG pO2 65.3 L ABG HCO3 31.8 H ABG O2 Saturation 93.5 L ABG Base Excess 6.7 H POC ABG pCO2 ABG Hemoglobin 13.3 L ABG Oxyhemoglobin ABG Chloride ABG Glucose Oxyhemoglobin 90.9 L Sodium Potassium Chloride Carbon Dioxide BUN Creatinine Glucose POC Glucose 111 H 111 H Lactic Acid Calcium Phosphorus Magnesium AST ALT Lactate Dehydrogenase Total Bilirubin Direct Bilirubin CK-MB (CK-2) C-Reactive Protein NT-Pro-B Natriuret Pep Total Protein Albumin Arterial Blood Glucose Urine WBC (Auto) Urine Creatinine 01/14/20 01/14/20 01/14/20 12:10 16:14 16:14 WBC RBC Hgb 10.6 L Hct 34.2 L MCHC 31 L RDW 18.3 H MCV 83 L MCH 26 L Lymph % (Auto) [place] % (Auto) 7.4 H [place] # Eos # Lymph # (Auto) [place] # (Auto) Eos # (Auto) Seg Neutrophils % 71.9 H Seg Neuts % (Manual) Baso # (Auto) Lymphocytes % (Manual) Monocytes % (Manual) Eosinophils % (Manual) Basophils % (Manual) Seg Neutrophils # Seg Neutrophils # Man Lymphocytes # (Manual) Monocytes # (Manual) Eosinophils # (Manual) Nucleated RBC % Basophils # (Manual) PT INR APTT Heparin Anti-Xa Level ABG pH POC ABG pO2 ABG pO2 ABG HCO3 ABG O2 Saturation ABG Base Excess POC ABG pCO2 ABG Hemoglobin ABG Oxyhemoglobin ABG Chloride ABG Glucose Oxyhemoglobin Sodium Potassium Chloride Carbon Dioxide 31 H BUN Creatinine 0.6 L Glucose 131 H POC Glucose 139 H Lactic Acid Calcium Phosphorus Magnesium AST ALT Lactate Dehydrogenase Total Bilirubin Direct Bilirubin CK-MB (CK-2) C-Reactive Protein NT-Pro-B Natriuret Pep Total Protein Albumin Arterial Blood Glucose Urine WBC (Auto) Urine Creatinine 01/14/20 01/15/20 01/15/20 18:05 00:52 05:35 WBC RBC Hgb Hct MCHC RDW MCV MCH Lymph % (Auto) [place] % (Auto) [place] # Eos # Lymph # (Auto) [place] # (Auto) Eos # (Auto) Seg Neutrophils % Seg Neuts % (Manual) Baso # (Auto) Lymphocytes % (Manual) Monocytes % (Manual) Eosinophils % (Manual) Basophils % (Manual) Seg Neutrophils # Seg Neutrophils # Man Lymphocytes # (Manual) Monocytes # (Manual) Eosinophils # (Manual) Nucleated RBC % Basophils # (Manual) PT INR APTT Heparin Anti-Xa Level ABG pH POC ABG pO2 ABG pO2 ABG HCO3 ABG O2 Saturation ABG Base Excess POC ABG pCO2 ABG Hemoglobin ABG Oxyhemoglobin ABG Chloride ABG Glucose Oxyhemoglobin Sodium Potassium Chloride Carbon Dioxide BUN Creatinine Glucose POC Glucose 147 H 140 H 159 H Lactic Acid Calcium Phosphorus Magnesium AST ALT Lactate Dehydrogenase Total Bilirubin Direct Bilirubin CK-MB (CK-2) C-Reactive Protein NT-Pro-B Natriuret Pep Total Protein Albumin Arterial Blood Glucose Urine WBC (Auto) Urine Creatinine 01/15/20 01/15/20 01/16/20 12:52 17:43 00:32 WBC RBC Hgb Hct MCHC RDW MCV MCH Lymph % (Auto) [place] % (Auto) [place] # Eos # Lymph # (Auto) [place] # (Auto) Eos # (Auto) Seg Neutrophils % Seg Neuts % (Manual) Baso # (Auto) Lymphocytes % (Manual) Monocytes % (Manual) Eosinophils % (Manual) Basophils % (Manual) Seg Neutrophils # Seg Neutrophils # Man Lymphocytes # (Manual) Monocytes # (Manual) Eosinophils # (Manual) Nucleated RBC % Basophils # (Manual) PT INR APTT Heparin Anti-Xa Level ABG pH POC ABG pO2 ABG pO2 ABG HCO3 ABG O2 Saturation ABG Base Excess POC ABG pCO2 ABG Hemoglobin ABG Oxyhemoglobin ABG Chloride ABG Glucose Oxyhemoglobin Sodium Potassium Chloride Carbon Dioxide BUN Creatinine Glucose POC Glucose 164 H 167 H 153 H Lactic Acid Calcium Phosphorus Magnesium AST ALT Lactate Dehydrogenase Total Bilirubin Direct Bilirubin CK-MB (CK-2) C-Reactive Protein NT-Pro-B Natriuret Pep Total Protein Albumin Arterial Blood Glucose Urine WBC (Auto) Urine Creatinine 01/16/20 01/16/20 01/17/20 05:46 11:48 06:38 WBC RBC Hgb Hct MCHC RDW MCV MCH Lymph % (Auto) [place] % (Auto) [place] # Eos # Lymph # (Auto) [place] # (Auto) Eos # (Auto) Seg Neutrophils % Seg Neuts % (Manual) Baso # (Auto) Lymphocytes % (Manual) Monocytes % (Manual) Eosinophils % (Manual) Basophils % (Manual) Seg Neutrophils # Seg Neutrophils # Man Lymphocytes # (Manual) Monocytes # (Manual) Eosinophils # (Manual) Nucleated RBC % Basophils # (Manual) PT INR APTT Heparin Anti-Xa Level ABG pH POC ABG pO2 ABG pO2 ABG HCO3 ABG O2 Saturation ABG Base Excess POC ABG pCO2 ABG Hemoglobin ABG Oxyhemoglobin ABG Chloride ABG Glucose Oxyhemoglobin Sodium Potassium Chloride Carbon Dioxide BUN Creatinine Glucose POC Glucose 163 H 155 H 116 H Lactic Acid Calcium Phosphorus Magnesium AST ALT Lactate Dehydrogenase Total Bilirubin Direct Bilirubin CK-MB (CK-2) C-Reactive Protein NT-Pro-B Natriuret Pep Total Protein Albumin Arterial Blood Glucose Urine WBC (Auto) Urine Creatinine 01/17/20 01/17/20 01/18/20 11:36 17:43 00:12 WBC RBC Hgb Hct MCHC RDW MCV MCH Lymph % (Auto) [place] % (Auto) [place] # Eos # Lymph # (Auto) [place] # (Auto) Eos # (Auto) Seg Neutrophils % Seg Neuts % (Manual) Baso # (Auto) Lymphocytes % (Manual) Monocytes % (Manual) Eosinophils % (Manual) Basophils % (Manual) Seg Neutrophils # Seg Neutrophils # Man Lymphocytes # (Manual) Monocytes # (Manual) Eosinophils # (Manual) Nucleated RBC % Basophils # (Manual) PT INR APTT Heparin Anti-Xa Level ABG pH POC ABG pO2 ABG pO2 ABG HCO3 ABG O2 Saturation ABG Base Excess POC ABG pCO2 ABG Hemoglobin ABG Oxyhemoglobin ABG Chloride ABG Glucose Oxyhemoglobin Sodium Potassium Chloride Carbon Dioxide BUN Creatinine Glucose POC Glucose 110 H 134 H 108 H Lactic Acid Calcium Phosphorus Magnesium AST ALT Lactate Dehydrogenase Total Bilirubin Direct Bilirubin CK-MB (CK-2) C-Reactive Protein NT-Pro-B Natriuret Pep Total Protein Albumin Arterial Blood Glucose Urine WBC (Auto) Urine Creatinine 01/18/20 01/18/20 01/18/20 05:37 06:46 06:46 WBC RBC Hgb 10.1 L Hct 32.2 L MCHC 31 L RDW 18.1 H MCV 81 L MCH 25 L Lymph % (Auto) [place] % (Auto) [place] # Eos # Lymph # (Auto) [place] # (Auto) Eos # (Auto) Seg Neutrophils % 71.9 H Seg Neuts % (Manual) Baso # (Auto) Lymphocytes % (Manual) Monocytes % (Manual) Eosinophils % (Manual) Basophils % (Manual) Seg Neutrophils # Seg Neutrophils # Man Lymphocytes # (Manual) Monocytes # (Manual) Eosinophils # (Manual) Nucleated RBC % Basophils # (Manual) PT INR APTT Heparin Anti-Xa Level ABG pH POC ABG pO2 ABG pO2 ABG HCO3 ABG O2 Saturation ABG Base Excess POC ABG pCO2 ABG Hemoglobin ABG Oxyhemoglobin ABG Chloride ABG Glucose Oxyhemoglobin Sodium Potassium Chloride Carbon Dioxide BUN Creatinine 0.7 L Glucose 155 H POC Glucose 168 H Lactic Acid Calcium Phosphorus Magnesium AST ALT Lactate Dehydrogenase Total Bilirubin Direct Bilirubin CK-MB (CK-2) C-Reactive Protein NT-Pro-B Natriuret Pep Total Protein Albumin Arterial Blood Glucose Urine WBC (Auto) Urine Creatinine 01/18/20 01/18/20 01/18/20 12:05 17:14 23:28 WBC RBC Hgb Hct MCHC RDW MCV MCH Lymph % (Auto) [place] % (Auto) [place] # Eos # Lymph # (Auto) [place] # (Auto) Eos # (Auto) Seg Neutrophils % Seg Neuts % (Manual) Baso # (Auto) Lymphocytes % (Manual) Monocytes % (Manual) Eosinophils % (Manual) Basophils % (Manual) Seg Neutrophils # Seg Neutrophils # Man Lymphocytes # (Manual) Monocytes # (Manual) Eosinophils # (Manual) Nucleated RBC % Basophils # (Manual) PT INR APTT Heparin Anti-Xa Level ABG pH POC ABG pO2 ABG pO2 ABG HCO3 ABG O2 Saturation ABG Base Excess POC ABG pCO2 ABG Hemoglobin ABG Oxyhemoglobin ABG Chloride ABG Glucose Oxyhemoglobin Sodium Potassium Chloride Carbon Dioxide BUN Creatinine Glucose POC Glucose 128 H 126 H 128 H Lactic Acid Calcium Phosphorus Magnesium AST ALT Lactate Dehydrogenase Total Bilirubin Direct Bilirubin CK-MB (CK-2) C-Reactive Protein NT-Pro-B Natriuret Pep Total Protein Albumin Arterial Blood Glucose Urine WBC (Auto) Urine Creatinine 01/19/20 01/19/20 01/19/20 05:39 12:33 17:36 WBC RBC Hgb Hct MCHC RDW MCV MCH Lymph % (Auto) [place] % (Auto) [place] # Eos # Lymph # (Auto) [place] # (Auto) Eos # (Auto) Seg Neutrophils % Seg Neuts % (Manual) Baso # (Auto) Lymphocytes % (Manual) Monocytes % (Manual) Eosinophils % (Manual) Basophils % (Manual) Seg Neutrophils # Seg Neutrophils # Man Lymphocytes # (Manual) Monocytes # (Manual) Eosinophils # (Manual) Nucleated RBC % Basophils # (Manual) PT INR APTT Heparin Anti-Xa Level ABG pH POC ABG pO2 ABG pO2 ABG HCO3 ABG O2 Saturation ABG Base Excess POC ABG pCO2 ABG Hemoglobin ABG Oxyhemoglobin ABG Chloride ABG Glucose Oxyhemoglobin Sodium Potassium Chloride Carbon Dioxide BUN Creatinine Glucose POC Glucose 164 H 171 H 152 H Lactic Acid Calcium Phosphorus Magnesium AST ALT Lactate Dehydrogenase Total Bilirubin Direct Bilirubin CK-MB (CK-2) C-Reactive Protein NT-Pro-B Natriuret Pep Total Protein Albumin Arterial Blood Glucose Urine WBC (Auto) Urine Creatinine 01/20/20 01/20/20 01/20/20 00:12 05:20 05:35 WBC RBC Hgb 9.2 L Hct 29.4 L MCHC 31 L RDW 17.9 H MCV 81 L MCH 25 L Lymph % (Auto) [place] % (Auto) [place] # Eos # Lymph # (Auto) [place] # (Auto) Eos # (Auto) Seg Neutrophils % Seg Neuts % (Manual) Baso # (Auto) Lymphocytes % (Manual) Monocytes % (Manual) Eosinophils % (Manual) Basophils % (Manual) Seg Neutrophils # Seg Neutrophils # Man Lymphocytes # (Manual) Monocytes # (Manual) Eosinophils # (Manual) Nucleated RBC % Basophils # (Manual) PT INR APTT Heparin Anti-Xa Level ABG pH POC ABG pO2 ABG pO2 ABG HCO3 ABG O2 Saturation ABG Base Excess POC ABG pCO2 ABG Hemoglobin ABG Oxyhemoglobin ABG Chloride ABG Glucose Oxyhemoglobin Sodium Potassium Chloride Carbon Dioxide BUN Creatinine Glucose POC Glucose 120 H 136 H Lactic Acid Calcium Phosphorus Magnesium AST ALT Lactate Dehydrogenase Total Bilirubin Direct Bilirubin CK-MB (CK-2) C-Reactive Protein NT-Pro-B Natriuret Pep Total Protein Albumin Arterial Blood Glucose Urine WBC (Auto) Urine Creatinine 01/20/20 01/20/20 01/20/20 05:40 11:58 14:55 WBC RBC Hgb 9.0 L Hct 28.3 L MCHC RDW MCV MCH Lymph % (Auto) [place] % (Auto) [place] # Eos # Lymph # (Auto) [place] # (Auto) Eos # (Auto) Seg Neutrophils % Seg Neuts % (Manual) Baso # (Auto) Lymphocytes % (Manual) Monocytes % (Manual) Eosinophils % (Manual) Basophils % (Manual) Seg Neutrophils # Seg Neutrophils # Man Lymphocytes # (Manual) Monocytes # (Manual) Eosinophils # (Manual) Nucleated RBC % Basophils # (Manual) PT INR APTT Heparin Anti-Xa Level ABG pH POC ABG pO2 ABG pO2 ABG HCO3 ABG O2 Saturation ABG Base Excess POC ABG pCO2 ABG Hemoglobin ABG Oxyhemoglobin ABG Chloride ABG Glucose Oxyhemoglobin Sodium Potassium Chloride Carbon Dioxide 32 H BUN 22 H Creatinine 0.7 L Glucose 128 H POC Glucose 152 H Lactic Acid Calcium Phosphorus Magnesium AST ALT Lactate Dehydrogenase Total Bilirubin Direct Bilirubin CK-MB (CK-2) C-Reactive Protein NT-Pro-B Natriuret Pep Total Protein Albumin Arterial Blood Glucose Urine WBC (Auto) Urine Creatinine 01/20/20 01/20/20 01/20/20 14:55 18:14 21:35 WBC RBC Hgb Hct MCHC RDW MCV MCH Lymph % (Auto) [place] % (Auto) [place] # Eos # Lymph # (Auto) [place] # (Auto) Eos # (Auto) Seg Neutrophils % Seg Neuts % (Manual) Baso # (Auto) Lymphocytes % (Manual) Monocytes % (Manual) Eosinophils % (Manual) Basophils % (Manual) Seg Neutrophils # Seg Neutrophils # Man Lymphocytes # (Manual) Monocytes # (Manual) Eosinophils # (Manual) Nucleated RBC % Basophils # (Manual) PT 20.4 H INR 1.72 H APTT 40.6 H Heparin Anti-Xa Level > 2.00 H ABG pH POC ABG pO2 ABG pO2 ABG HCO3 ABG O2 Saturation ABG Base Excess POC ABG pCO2 ABG Hemoglobin ABG Oxyhemoglobin ABG Chloride ABG Glucose Oxyhemoglobin Sodium Potassium Chloride Carbon Dioxide BUN Creatinine Glucose POC Glucose 150 H Lactic Acid Calcium Phosphorus Magnesium AST ALT Lactate Dehydrogenase Total Bilirubin Direct Bilirubin CK-MB (CK-2) C-Reactive Protein NT-Pro-B Natriuret Pep Total Protein Albumin Arterial Blood Glucose Urine WBC (Auto) Urine Creatinine 01/21/20 01/21/20 01/21/20 00:30 05:47 05:59 WBC RBC Hgb Hct MCHC RDW MCV MCH Lymph % (Auto) [place] % (Auto) [place] # Eos # Lymph # (Auto) [place] # (Auto) Eos # (Auto) Seg Neutrophils % Seg Neuts % (Manual) Baso # (Auto) Lymphocytes % (Manual) Monocytes % (Manual) Eosinophils % (Manual) Basophils % (Manual) Seg Neutrophils # Seg Neutrophils # Man Lymphocytes # (Manual) Monocytes # (Manual) Eosinophils # (Manual) Nucleated RBC % Basophils # (Manual) PT INR APTT Heparin Anti-Xa Level 1.93 H ABG pH POC ABG pO2 ABG pO2 ABG HCO3 ABG O2 Saturation ABG Base Excess POC ABG pCO2 ABG Hemoglobin ABG Oxyhemoglobin ABG Chloride ABG Glucose Oxyhemoglobin Sodium Potassium Chloride Carbon Dioxide BUN Creatinine Glucose POC Glucose 126 H 148 H Lactic Acid Calcium Phosphorus Magnesium AST ALT Lactate Dehydrogenase Total Bilirubin Direct Bilirubin CK-MB (CK-2) C-Reactive Protein NT-Pro-B Natriuret Pep Total Protein Albumin Arterial Blood Glucose Urine WBC (Auto) Urine Creatinine 01/21/20 01/21/20 01/21/20 12:32 18:20 23:54 WBC RBC Hgb Hct MCHC RDW MCV MCH Lymph % (Auto) [place] % (Auto) [place] # Eos # Lymph # (Auto) [place] # (Auto) Eos # (Auto) Seg Neutrophils % Seg Neuts % (Manual) Baso # (Auto) Lymphocytes % (Manual) Monocytes % (Manual) Eosinophils % (Manual) Basophils % (Manual) Seg Neutrophils # Seg Neutrophils # Man Lymphocytes # (Manual) Monocytes # (Manual) Eosinophils # (Manual) Nucleated RBC % Basophils # (Manual) PT INR APTT Heparin Anti-Xa Level 1.28 H ABG pH POC ABG pO2 ABG pO2 ABG HCO3 ABG O2 Saturation ABG Base Excess POC ABG pCO2 ABG Hemoglobin ABG Oxyhemoglobin ABG Chloride ABG Glucose Oxyhemoglobin Sodium Potassium Chloride Carbon Dioxide BUN Creatinine Glucose POC Glucose 112 H 146 H Lactic Acid Calcium Phosphorus Magnesium AST ALT Lactate Dehydrogenase Total Bilirubin Direct Bilirubin CK-MB (CK-2) C-Reactive Protein NT-Pro-B Natriuret Pep Total Protein Albumin Arterial Blood Glucose Urine WBC (Auto) Urine Creatinine 01/22/20 01/22/20 01/22/20 04:45 04:45 05:48 WBC RBC Hgb 9.3 L Hct 29.0 L MCHC RDW MCV MCH Lymph % (Auto) [place] % (Auto) [place] # Eos # Lymph # (Auto) [place] # (Auto) Eos # (Auto) Seg Neutrophils % Seg Neuts % (Manual) Baso # (Auto) Lymphocytes % (Manual) Monocytes % (Manual) Eosinophils % (Manual) Basophils % (Manual) Seg Neutrophils # Seg Neutrophils # Man Lymphocytes # (Manual) Monocytes # (Manual) Eosinophils # (Manual) Nucleated RBC % Basophils # (Manual) PT INR APTT Heparin Anti-Xa Level 1.34 H ABG pH POC ABG pO2 ABG pO2 ABG HCO3 ABG O2 Saturation ABG Base Excess POC ABG pCO2 ABG Hemoglobin ABG Oxyhemoglobin ABG Chloride ABG Glucose Oxyhemoglobin Sodium Potassium Chloride Carbon Dioxide BUN Creatinine Glucose POC Glucose 142 H Lactic Acid Calcium Phosphorus Magnesium AST ALT Lactate Dehydrogenase Total Bilirubin Direct Bilirubin CK-MB (CK-2) C-Reactive Protein NT-Pro-B Natriuret Pep Total Protein Albumin Arterial Blood Glucose Urine WBC (Auto) Urine Creatinine 01/22/20 01/22/20 01/22/20 08:09 08:22 09:58 WBC RBC Hgb Hct MCHC RDW MCV MCH Lymph % (Auto) [place] % (Auto) [place] # Eos # Lymph # (Auto) [place] # (Auto) Eos # (Auto) Seg Neutrophils % Seg Neuts % (Manual) Baso # (Auto) Lymphocytes % (Manual) Monocytes % (Manual) Eosinophils % (Manual) Basophils % (Manual) Seg Neutrophils # Seg Neutrophils # Man Lymphocytes # (Manual) Monocytes # (Manual) Eosinophils # (Manual) Nucleated RBC % Basophils # (Manual) PT 16.9 H INR 1.34 H APTT Heparin Anti-Xa Level ABG pH POC ABG pO2 ABG pO2 ABG HCO3 ABG O2 Saturation ABG Base Excess POC ABG pCO2 ABG Hemoglobin ABG Oxyhemoglobin ABG Chloride ABG Glucose Oxyhemoglobin Sodium Potassium Chloride 97.8 L Carbon Dioxide BUN 29 H Creatinine Glucose 128 H POC Glucose 131 H Lactic Acid Calcium Phosphorus Magnesium AST ALT Lactate Dehydrogenase Total Bilirubin Direct Bilirubin CK-MB (CK-2) C-Reactive Protein NT-Pro-B Natriuret Pep Total Protein Albumin Arterial Blood Glucose Urine WBC (Auto) Urine Creatinine 01/22/20 01/22/20 01/22/20 12:44 16:13 18:18 WBC RBC Hgb Hct MCHC RDW MCV MCH Lymph % (Auto) [place] % (Auto) [place] # Eos # Lymph # (Auto) [place] # (Auto) Eos # (Auto) Seg Neutrophils % Seg Neuts % (Manual) Baso # (Auto) Lymphocytes % (Manual) Monocytes % (Manual) Eosinophils % (Manual) Basophils % (Manual) Seg Neutrophils # Seg Neutrophils # Man Lymphocytes # (Manual) Monocytes # (Manual) Eosinophils # (Manual) Nucleated RBC % Basophils # (Manual) PT INR APTT Heparin Anti-Xa Level ABG pH POC ABG pO2 ABG pO2 ABG HCO3 ABG O2 Saturation ABG Base Excess POC ABG pCO2 ABG Hemoglobin ABG Oxyhemoglobin ABG Chloride ABG Glucose Oxyhemoglobin Sodium Potassium Chloride Carbon Dioxide BUN Creatinine Glucose POC Glucose 156 H 133 H 155 H Lactic Acid Calcium Phosphorus Magnesium AST ALT Lactate Dehydrogenase Total Bilirubin Direct Bilirubin CK-MB (CK-2) C-Reactive Protein NT-Pro-B Natriuret Pep Total Protein Albumin Arterial Blood Glucose Urine WBC (Auto) Urine Creatinine 01/22/20 01/23/20 01/23/20 23:22 05:37 12:59 WBC RBC Hgb Hct MCHC RDW MCV MCH Lymph % (Auto) [place] % (Auto) [place] # Eos # Lymph # (Auto) [place] # (Auto) Eos # (Auto) Seg Neutrophils % Seg Neuts % (Manual) Baso # (Auto) Lymphocytes % (Manual) Monocytes % (Manual) Eosinophils % (Manual) Basophils % (Manual) Seg Neutrophils # Seg Neutrophils # Man Lymphocytes # (Manual) Monocytes # (Manual) Eosinophils # (Manual) Nucleated RBC % Basophils # (Manual) PT INR APTT Heparin Anti-Xa Level ABG pH POC ABG pO2 ABG pO2 ABG HCO3 ABG O2 Saturation ABG Base Excess POC ABG pCO2 ABG Hemoglobin ABG Oxyhemoglobin ABG Chloride ABG Glucose Oxyhemoglobin Sodium Potassium Chloride Carbon Dioxide BUN Creatinine Glucose POC Glucose 148 H 163 H 175 H Lactic Acid Calcium Phosphorus Magnesium AST ALT Lactate Dehydrogenase Total Bilirubin Direct Bilirubin CK-MB (CK-2) C-Reactive Protein NT-Pro-B Natriuret Pep Total Protein Albumin Arterial Blood Glucose Urine WBC (Auto) Urine Creatinine 01/23/20 01/23/20 01/24/20 17:28 23:56 04:30 WBC RBC 3.46 L Hgb 8.8 L Hct 27.8 L MCHC RDW 18.2 H MCV 81 L MCH 25 L Lymph % (Auto) [place] % (Auto) 7.8 H [place] # Eos # Lymph # (Auto) [place] # (Auto) Eos # (Auto) Seg Neutrophils % Seg Neuts % (Manual) Baso # (Auto) Lymphocytes % (Manual) Monocytes % (Manual) Eosinophils % (Manual) Basophils % (Manual) Seg Neutrophils # Seg Neutrophils # Man Lymphocytes # (Manual) Monocytes # (Manual) Eosinophils # (Manual) Nucleated RBC % Basophils # (Manual) PT INR APTT Heparin Anti-Xa Level ABG pH POC ABG pO2 ABG pO2 ABG HCO3 ABG O2 Saturation ABG Base Excess POC ABG pCO2 ABG Hemoglobin ABG Oxyhemoglobin ABG Chloride ABG Glucose Oxyhemoglobin Sodium Potassium Chloride Carbon Dioxide BUN Creatinine Glucose POC Glucose 165 H 177 H Lactic Acid Calcium Phosphorus Magnesium AST ALT Lactate Dehydrogenase Total Bilirubin Direct Bilirubin CK-MB (CK-2) C-Reactive Protein NT-Pro-B Natriuret Pep Total Protein Albumin Arterial Blood Glucose Urine WBC (Auto) Urine Creatinine 01/24/20 01/24/20 01/24/20 04:30 07:18 12:06 WBC RBC Hgb Hct MCHC RDW MCV MCH Lymph % (Auto) [place] % (Auto) [place] # Eos # Lymph # (Auto) [place] # (Auto) Eos # (Auto) Seg Neutrophils % Seg Neuts % (Manual) Baso # (Auto) Lymphocytes % (Manual) Monocytes % (Manual) Eosinophils % (Manual) Basophils % (Manual) Seg Neutrophils # Seg Neutrophils # Man Lymphocytes # (Manual) Monocytes # (Manual) Eosinophils # (Manual) Nucleated RBC % Basophils # (Manual) PT INR APTT Heparin Anti-Xa Level ABG pH POC ABG pO2 ABG pO2 ABG HCO3 ABG O2 Saturation ABG Base Excess POC ABG pCO2 ABG Hemoglobin ABG Oxyhemoglobin ABG Chloride ABG Glucose Oxyhemoglobin Sodium Potassium Chloride 97.9 L Carbon Dioxide BUN 31 H Creatinine Glucose 146 H POC Glucose 151 H 133 H Lactic Acid Calcium Phosphorus Magnesium AST ALT Lactate Dehydrogenase Total Bilirubin Direct Bilirubin CK-MB (CK-2) C-Reactive Protein NT-Pro-B Natriuret Pep Total Protein Albumin Arterial Blood Glucose Urine WBC (Auto) Urine Creatinine 01/24/20 01/25/20 01/25/20 17:36 00:08 04:25 WBC RBC 3.50 L Hgb 8.7 L Hct 27.9 L MCHC 31 L RDW 18.2 H MCV 80 L MCH 25 L Lymph % (Auto) [place] % (Auto) 8.5 H [place] # Eos # Lymph # (Auto) [place] # (Auto) Eos # (Auto) Seg Neutrophils % Seg Neuts % (Manual) Baso # (Auto) Lymphocytes % (Manual) Monocytes % (Manual) Eosinophils % (Manual) Basophils % (Manual) Seg Neutrophils # Seg Neutrophils # Man Lymphocytes # (Manual) Monocytes # (Manual) Eosinophils # (Manual) Nucleated RBC % Basophils # (Manual) PT INR APTT Heparin Anti-Xa Level ABG pH POC ABG pO2 ABG pO2 ABG HCO3 ABG O2 Saturation ABG Base Excess POC ABG pCO2 ABG Hemoglobin ABG Oxyhemoglobin ABG Chloride ABG Glucose Oxyhemoglobin Sodium Potassium Chloride Carbon Dioxide BUN Creatinine Glucose POC Glucose 133 H 129 H Lactic Acid Calcium Phosphorus Magnesium AST ALT Lactate Dehydrogenase Total Bilirubin Direct Bilirubin CK-MB (CK-2) C-Reactive Protein NT-Pro-B Natriuret Pep Total Protein Albumin Arterial Blood Glucose Urine WBC (Auto) Urine Creatinine 01/25/20 01/25/20 01/25/20 04:25 05:38 11:52 WBC RBC Hgb Hct MCHC RDW MCV MCH Lymph % (Auto) [place] % (Auto) [place] # Eos # Lymph # (Auto) [place] # (Auto) Eos # (Auto) Seg Neutrophils % Seg Neuts % (Manual) Baso # (Auto) Lymphocytes % (Manual) Monocytes % (Manual) Eosinophils % (Manual) Basophils % (Manual) Seg Neutrophils # Seg Neutrophils # Man Lymphocytes # (Manual) Monocytes # (Manual) Eosinophils # (Manual) Nucleated RBC % Basophils # (Manual) PT INR APTT Heparin Anti-Xa Level ABG pH POC ABG pO2 ABG pO2 ABG HCO3 ABG O2 Saturation ABG Base Excess POC ABG pCO2 ABG Hemoglobin ABG Oxyhemoglobin ABG Chloride ABG Glucose Oxyhemoglobin Sodium Potassium Chloride Carbon Dioxide BUN 30 H Creatinine Glucose 134 H POC Glucose 129 H 134 H Lactic Acid Calcium Phosphorus Magnesium AST ALT Lactate Dehydrogenase Total Bilirubin Direct Bilirubin CK-MB (CK-2) C-Reactive Protein NT-Pro-B Natriuret Pep Total Protein Albumin Arterial Blood Glucose Urine WBC (Auto) Urine Creatinine 01/25/20 01/25/20 01/26/20 17:13 21:02 00:59 WBC RBC Hgb Hct MCHC RDW MCV MCH Lymph % (Auto) [place] % (Auto) [place] # Eos # Lymph # (Auto) [place] # (Auto) Eos # (Auto) Seg Neutrophils % Seg Neuts % (Manual) Baso # (Auto) Lymphocytes % (Manual) Monocytes % (Manual) Eosinophils % (Manual) Basophils % (Manual) Seg Neutrophils # Seg Neutrophils # Man Lymphocytes # (Manual) Monocytes # (Manual) Eosinophils # (Manual) Nucleated RBC % Basophils # (Manual) PT INR APTT Heparin Anti-Xa Level ABG pH POC ABG pO2 ABG pO2 57.5 L ABG HCO3 31.7 H ABG O2 Saturation 90.3 L ABG Base Excess 6.6 H POC ABG pCO2 ABG Hemoglobin 13.0 L ABG Oxyhemoglobin ABG Chloride ABG Glucose Oxyhemoglobin 87.5 L Sodium Potassium Chloride Carbon Dioxide BUN Creatinine Glucose POC Glucose 124 H 196 H Lactic Acid Calcium Phosphorus Magnesium AST ALT Lactate Dehydrogenase Total Bilirubin Direct Bilirubin CK-MB (CK-2) C-Reactive Protein NT-Pro-B Natriuret Pep Total Protein Albumin Arterial Blood Glucose Urine WBC (Auto) Urine Creatinine 01/26/20 01/26/20 01/26/20 03:20 05:46 12:46 WBC RBC Hgb 9.2 L Hct 29.4 L MCHC RDW MCV MCH Lymph % (Auto) [place] % (Auto) [place] # Eos # Lymph # (Auto) [place] # (Auto) Eos # (Auto) Seg Neutrophils % Seg Neuts % (Manual) Baso # (Auto) Lymphocytes % (Manual) Monocytes % (Manual) Eosinophils % (Manual) Basophils % (Manual) Seg Neutrophils # Seg Neutrophils # Man Lymphocytes # (Manual) Monocytes # (Manual) Eosinophils # (Manual) Nucleated RBC % Basophils # (Manual) PT INR APTT Heparin Anti-Xa Level ABG pH POC ABG pO2 ABG pO2 ABG HCO3 ABG O2 Saturation ABG Base Excess POC ABG pCO2 ABG Hemoglobin ABG Oxyhemoglobin ABG Chloride ABG Glucose Oxyhemoglobin Sodium Potassium Chloride Carbon Dioxide BUN Creatinine Glucose POC Glucose 141 H 122 H Lactic Acid Calcium Phosphorus Magnesium AST ALT Lactate Dehydrogenase Total Bilirubin Direct Bilirubin CK-MB (CK-2) C-Reactive Protein NT-Pro-B Natriuret Pep Total Protein Albumin Arterial Blood Glucose Urine WBC (Auto) Urine Creatinine 01/26/20 01/26/20 01/27/20 18:03 23:55 04:47 WBC RBC Hgb Hct MCHC RDW MCV MCH Lymph % (Auto) [place] % (Auto) [place] # Eos # Lymph # (Auto) [place] # (Auto) Eos # (Auto) Seg Neutrophils % Seg Neuts % (Manual) Baso # (Auto) Lymphocytes % (Manual) Monocytes % (Manual) Eosinophils % (Manual) Basophils % (Manual) Seg Neutrophils # Seg Neutrophils # Man Lymphocytes # (Manual) Monocytes # (Manual) Eosinophils # (Manual) Nucleated RBC % Basophils # (Manual) PT INR APTT Heparin Anti-Xa Level ABG pH POC ABG pO2 ABG pO2 ABG HCO3 ABG O2 Saturation ABG Base Excess POC ABG pCO2 ABG Hemoglobin ABG Oxyhemoglobin ABG Chloride ABG Glucose Oxyhemoglobin Sodium Potassium Chloride Carbon Dioxide BUN 30 H Creatinine 0.7 L Glucose 135 H POC Glucose 142 H 159 H Lactic Acid Calcium Phosphorus Magnesium AST ALT Lactate Dehydrogenase Total Bilirubin Direct Bilirubin CK-MB (CK-2) C-Reactive Protein NT-Pro-B Natriuret Pep Total Protein Albumin Arterial Blood Glucose Urine WBC (Auto) Urine Creatinine 01/27/20 01/27/20 01/27/20 05:43 12:06 17:16 WBC RBC Hgb Hct MCHC RDW MCV MCH Lymph % (Auto) [place] % (Auto) [place] # Eos # Lymph # (Auto) [place] # (Auto) Eos # (Auto) Seg Neutrophils % Seg Neuts % (Manual) Baso # (Auto) Lymphocytes % (Manual) Monocytes % (Manual) Eosinophils % (Manual) Basophils % (Manual) Seg Neutrophils # Seg Neutrophils # Man Lymphocytes # (Manual) Monocytes # (Manual) Eosinophils # (Manual) Nucleated RBC % Basophils # (Manual) PT INR APTT Heparin Anti-Xa Level ABG pH POC ABG pO2 ABG pO2 ABG HCO3 ABG O2 Saturation ABG Base Excess POC ABG pCO2 ABG Hemoglobin ABG Oxyhemoglobin ABG Chloride ABG Glucose Oxyhemoglobin Sodium Potassium Chloride Carbon Dioxide BUN Creatinine Glucose POC Glucose 143 H 142 H 128 H Lactic Acid Calcium Phosphorus Magnesium AST ALT Lactate Dehydrogenase Total Bilirubin Direct Bilirubin CK-MB (CK-2) C-Reactive Protein NT-Pro-B Natriuret Pep Total Protein Albumin Arterial Blood Glucose Urine WBC (Auto) Urine Creatinine 01/27/20 01/28/20 01/28/20 23:55 04:37 05:55 WBC RBC Hgb 9.4 L Hct 29.9 L MCHC RDW MCV MCH Lymph % (Auto) [place] % (Auto) [place] # Eos # Lymph # (Auto) [place] # (Auto) Eos # (Auto) Seg Neutrophils % Seg Neuts % (Manual) Baso # (Auto) Lymphocytes % (Manual) Monocytes % (Manual) Eosinophils % (Manual) Basophils % (Manual) Seg Neutrophils # Seg Neutrophils # Man Lymphocytes # (Manual) Monocytes # (Manual) Eosinophils # (Manual) Nucleated RBC % Basophils # (Manual) PT INR APTT Heparin Anti-Xa Level ABG pH POC ABG pO2 ABG pO2 ABG HCO3 ABG O2 Saturation ABG Base Excess POC ABG pCO2 ABG Hemoglobin ABG Oxyhemoglobin ABG Chloride ABG Glucose Oxyhemoglobin Sodium Potassium Chloride Carbon Dioxide BUN Creatinine Glucose POC Glucose 166 H 169 H Lactic Acid Calcium Phosphorus Magnesium AST ALT Lactate Dehydrogenase Total Bilirubin Direct Bilirubin CK-MB (CK-2) C-Reactive Protein NT-Pro-B Natriuret Pep Total Protein Albumin Arterial Blood Glucose Urine WBC (Auto) Urine Creatinine 01/28/20 01/28/20 01/28/20 11:58 17:26 23:46 WBC RBC Hgb Hct MCHC RDW MCV MCH Lymph % (Auto) [place] % (Auto) [place] # Eos # Lymph # (Auto) [place] # (Auto) Eos # (Auto) Seg Neutrophils % Seg Neuts % (Manual) Baso # (Auto) Lymphocytes % (Manual) Monocytes % (Manual) Eosinophils % (Manual) Basophils % (Manual) Seg Neutrophils # Seg Neutrophils # Man Lymphocytes # (Manual) Monocytes # (Manual) Eosinophils # (Manual) Nucleated RBC % Basophils # (Manual) PT INR APTT Heparin Anti-Xa Level ABG pH POC ABG pO2 ABG pO2 ABG HCO3 ABG O2 Saturation ABG Base Excess POC ABG pCO2 ABG Hemoglobin ABG Oxyhemoglobin ABG Chloride ABG Glucose Oxyhemoglobin Sodium Potassium Chloride Carbon Dioxide BUN Creatinine Glucose POC Glucose 130 H 126 H 150 H Lactic Acid Calcium Phosphorus Magnesium AST ALT Lactate Dehydrogenase Total Bilirubin Direct Bilirubin CK-MB (CK-2) C-Reactive Protein NT-Pro-B Natriuret Pep Total Protein Albumin Arterial Blood Glucose Urine WBC (Auto) Urine Creatinine 01/29/20 01/29/20 01/29/20 04:55 06:00 12:28 WBC RBC Hgb Hct MCHC RDW MCV MCH Lymph % (Auto) [place] % (Auto) [place] # Eos # Lymph # (Auto) [place] # (Auto) Eos # (Auto) Seg Neutrophils % Seg Neuts % (Manual) Baso # (Auto) Lymphocytes % (Manual) Monocytes % (Manual) Eosinophils % (Manual) Basophils % (Manual) Seg Neutrophils # Seg Neutrophils # Man Lymphocytes # (Manual) Monocytes # (Manual) Eosinophils # (Manual) Nucleated RBC % Basophils # (Manual) PT INR APTT Heparin Anti-Xa Level ABG pH POC ABG pO2 ABG pO2 ABG HCO3 ABG O2 Saturation ABG Base Excess POC ABG pCO2 ABG Hemoglobin ABG Oxyhemoglobin ABG Chloride ABG Glucose Oxyhemoglobin Sodium Potassium Chloride Carbon Dioxide 34 H BUN Creatinine 0.6 L Glucose 152 H POC Glucose 157 H 156 H Lactic Acid Calcium Phosphorus Magnesium AST ALT Lactate Dehydrogenase Total Bilirubin Direct Bilirubin CK-MB (CK-2) C-Reactive Protein NT-Pro-B Natriuret Pep Total Protein Albumin Arterial Blood Glucose Urine WBC (Auto) Urine Creatinine 01/29/20 01/30/20 01/30/20 19:06 00:29 05:39 WBC RBC Hgb Hct MCHC RDW MCV MCH Lymph % (Auto) [place] % (Auto) [place] # Eos # Lymph # (Auto) [place] # (Auto) Eos # (Auto) Seg Neutrophils % Seg Neuts % (Manual) Baso # (Auto) Lymphocytes % (Manual) Monocytes % (Manual) Eosinophils % (Manual) Basophils % (Manual) Seg Neutrophils # Seg Neutrophils # Man Lymphocytes # (Manual) Monocytes # (Manual) Eosinophils # (Manual) Nucleated RBC % Basophils # (Manual) PT INR APTT Heparin Anti-Xa Level ABG pH POC ABG pO2 ABG pO2 ABG HCO3 ABG O2 Saturation ABG Base Excess POC ABG pCO2 ABG Hemoglobin ABG Oxyhemoglobin ABG Chloride ABG Glucose Oxyhemoglobin Sodium Potassium Chloride Carbon Dioxide BUN Creatinine Glucose POC Glucose 152 H 132 H 159 H Lactic Acid Calcium Phosphorus Magnesium AST ALT Lactate Dehydrogenase Total Bilirubin Direct Bilirubin CK-MB (CK-2) C-Reactive Protein NT-Pro-B Natriuret Pep Total Protein Albumin Arterial Blood Glucose Urine WBC (Auto) Urine Creatinine 01/30/20 01/30/20 01/30/20 12:27 17:42 23:28 WBC RBC Hgb Hct MCHC RDW MCV MCH Lymph % (Auto) [place] % (Auto) [place] # Eos # Lymph # (Auto) [place] # (Auto) Eos # (Auto) Seg Neutrophils % Seg Neuts % (Manual) Baso # (Auto) Lymphocytes % (Manual) Monocytes % (Manual) Eosinophils % (Manual) Basophils % (Manual) Seg Neutrophils # Seg Neutrophils # Man Lymphocytes # (Manual) Monocytes # (Manual) Eosinophils # (Manual) Nucleated RBC % Basophils # (Manual) PT INR APTT Heparin Anti-Xa Level ABG pH POC ABG pO2 ABG pO2 ABG HCO3 ABG O2 Saturation ABG Base Excess POC ABG pCO2 ABG Hemoglobin ABG Oxyhemoglobin ABG Chloride ABG Glucose Oxyhemoglobin Sodium Potassium Chloride Carbon Dioxide BUN Creatinine Glucose POC Glucose 151 H 144 H 164 H Lactic Acid Calcium Phosphorus Magnesium AST ALT Lactate Dehydrogenase Total Bilirubin Direct Bilirubin CK-MB (CK-2) C-Reactive Protein NT-Pro-B Natriuret Pep Total Protein Albumin Arterial Blood Glucose Urine WBC (Auto) Urine Creatinine 01/31/20 01/31/20 01/31/20 05:51 11:51 18:06 WBC RBC Hgb Hct MCHC RDW MCV MCH Lymph % (Auto) [place] % (Auto) [place] # Eos # Lymph # (Auto) [place] # (Auto) Eos # (Auto) Seg Neutrophils % Seg Neuts % (Manual) Baso # (Auto) Lymphocytes % (Manual) Monocytes % (Manual) Eosinophils % (Manual) Basophils % (Manual) Seg Neutrophils # Seg Neutrophils # Man Lymphocytes # (Manual) Monocytes # (Manual) Eosinophils # (Manual) Nucleated RBC % Basophils # (Manual) PT INR APTT Heparin Anti-Xa Level ABG pH POC ABG pO2 ABG pO2 ABG HCO3 ABG O2 Saturation ABG Base Excess POC ABG pCO2 ABG Hemoglobin ABG Oxyhemoglobin ABG Chloride ABG Glucose Oxyhemoglobin Sodium Potassium Chloride Carbon Dioxide BUN Creatinine Glucose POC Glucose 131 H 167 H 210 H Lactic Acid Calcium Phosphorus Magnesium AST ALT Lactate Dehydrogenase Total Bilirubin Direct Bilirubin CK-MB (CK-2) C-Reactive Protein NT-Pro-B Natriuret Pep Total Protein Albumin Arterial Blood Glucose Urine WBC (Auto) Urine Creatinine 01/31/20 01/31/20 02/01/20 19:24 Unknown 00:34 WBC RBC Hgb Hct MCHC RDW MCV MCH Lymph % (Auto) [place] % (Auto) [place] # Eos # Lymph # (Auto) [place] # (Auto) Eos # (Auto) Seg Neutrophils % Seg Neuts % (Manual) Baso # (Auto) Lymphocytes % (Manual) Monocytes % (Manual) Eosinophils % (Manual) Basophils % (Manual) Seg Neutrophils # Seg Neutrophils # Man Lymphocytes # (Manual) Monocytes # (Manual) Eosinophils # (Manual) Nucleated RBC % Basophils # (Manual) PT INR APTT Heparin Anti-Xa Level ABG pH POC ABG pO2 ABG pO2 ABG HCO3 ABG O2 Saturation ABG Base Excess POC ABG pCO2 ABG Hemoglobin ABG Oxyhemoglobin ABG Chloride ABG Glucose Oxyhemoglobin Sodium Potassium Chloride 95.3 L Carbon Dioxide 33 H BUN 36 H Creatinine Glucose 187 H POC Glucose 116 H Lactic Acid Calcium Phosphorus Magnesium AST ALT Lactate Dehydrogenase Total Bilirubin Direct Bilirubin CK-MB (CK-2) C-Reactive Protein NT-Pro-B Natriuret Pep Total Protein Albumin Arterial Blood Glucose Urine WBC (Auto) Urine Creatinine 57.4 H 02/01/20 02/01/20 02/01/20 05:24 10:40 12:29 WBC RBC Hgb Hct MCHC RDW MCV MCH Lymph % (Auto) [place] % (Auto) [place] # Eos # Lymph # (Auto) [place] # (Auto) Eos # (Auto) Seg Neutrophils % Seg Neuts % (Manual) Baso # (Auto) Lymphocytes % (Manual) Monocytes % (Manual) Eosinophils % (Manual) Basophils % (Manual) Seg Neutrophils # Seg Neutrophils # Man Lymphocytes # (Manual) Monocytes # (Manual) Eosinophils # (Manual) Nucleated RBC % Basophils # (Manual) PT INR APTT Heparin Anti-Xa Level ABG pH POC ABG pO2 ABG pO2 ABG HCO3 ABG O2 Saturation ABG Base Excess POC ABG pCO2 ABG Hemoglobin ABG Oxyhemoglobin ABG Chloride ABG Glucose Oxyhemoglobin Sodium Potassium Chloride Carbon Dioxide BUN Creatinine Glucose POC Glucose 142 H 165 H 151 H Lactic Acid Calcium Phosphorus Magnesium AST ALT Lactate Dehydrogenase Total Bilirubin Direct Bilirubin CK-MB (CK-2) C-Reactive Protein NT-Pro-B Natriuret Pep Total Protein Albumin Arterial Blood Glucose Urine WBC (Auto) Urine Creatinine 02/01/20 02/01/20 02/02/20 17:16 23:23 06:36 WBC RBC Hgb Hct MCHC RDW MCV MCH Lymph % (Auto) [place] % (Auto) [place] # Eos # Lymph # (Auto) [place] # (Auto) Eos # (Auto) Seg Neutrophils % Seg Neuts % (Manual) Baso # (Auto) Lymphocytes % (Manual) Monocytes % (Manual) Eosinophils % (Manual) Basophils % (Manual) Seg Neutrophils # Seg Neutrophils # Man Lymphocytes # (Manual) Monocytes # (Manual) Eosinophils # (Manual) Nucleated RBC % Basophils # (Manual) PT INR APTT Heparin Anti-Xa Level ABG pH POC ABG pO2 ABG pO2 ABG HCO3 ABG O2 Saturation ABG Base Excess POC ABG pCO2 ABG Hemoglobin ABG Oxyhemoglobin ABG Chloride ABG Glucose Oxyhemoglobin Sodium Potassium Chloride Carbon Dioxide BUN Creatinine Glucose POC Glucose 137 H 145 H 181 H Lactic Acid Calcium Phosphorus Magnesium AST ALT Lactate Dehydrogenase Total Bilirubin Direct Bilirubin CK-MB (CK-2) C-Reactive Protein NT-Pro-B Natriuret Pep Total Protein Albumin Arterial Blood Glucose Urine WBC (Auto) Urine Creatinine 02/02/20 02/02/20 02/02/20 10:01 12:05 17:54 WBC RBC Hgb Hct MCHC RDW MCV MCH Lymph % (Auto) [place] % (Auto) [place] # Eos # Lymph # (Auto) [place] # (Auto) Eos # (Auto) Seg Neutrophils % Seg Neuts % (Manual) Baso # (Auto) Lymphocytes % (Manual) Monocytes % (Manual) Eosinophils % (Manual) Basophils % (Manual) Seg Neutrophils # Seg Neutrophils # Man Lymphocytes # (Manual) Monocytes # (Manual) Eosinophils # (Manual) Nucleated RBC % Basophils # (Manual) PT INR APTT Heparin Anti-Xa Level ABG pH POC ABG pO2 ABG pO2 ABG HCO3 ABG O2 Saturation ABG Base Excess POC ABG pCO2 ABG Hemoglobin ABG Oxyhemoglobin ABG Chloride ABG Glucose Oxyhemoglobin Sodium Potassium Chloride 95.3 L Carbon Dioxide BUN 44 H Creatinine Glucose 234 H POC Glucose 184 H 127 H Lactic Acid Calcium Phosphorus Magnesium AST 363 H ALT 457 H Lactate Dehydrogenase Total Bilirubin Direct Bilirubin CK-MB (CK-2) C-Reactive Protein NT-Pro-B Natriuret Pep Total Protein Albumin 3.0 L Arterial Blood Glucose Urine WBC (Auto) Urine Creatinine 02/02/20 02/03/20 02/03/20 23:47 05:32 07:04 WBC 13.0 H RBC Hgb 9.5 L Hct 30.8 L MCHC 31 L RDW 19.6 H MCV 81 L MCH 25 L Lymph % (Auto) [place] % (Auto) 9.4 H [place] # Eos # Lymph # (Auto) [place] # (Auto) 1.2 H Eos # (Auto) Seg Neutrophils % 72.3 H Seg Neuts % (Manual) Baso # (Auto) Lymphocytes % (Manual) Monocytes % (Manual) Eosinophils % (Manual) Basophils % (Manual) Seg Neutrophils # 9.4 H Seg Neutrophils # Man Lymphocytes # (Manual) Monocytes # (Manual) Eosinophils # (Manual) Nucleated RBC % Basophils # (Manual) PT INR APTT Heparin Anti-Xa Level ABG pH POC ABG pO2 ABG pO2 ABG HCO3 ABG O2 Saturation ABG Base Excess POC ABG pCO2 ABG Hemoglobin ABG Oxyhemoglobin ABG Chloride ABG Glucose Oxyhemoglobin Sodium Potassium Chloride Carbon Dioxide BUN Creatinine Glucose POC Glucose 124 H 129 H Lactic Acid Calcium Phosphorus Magnesium AST ALT Lactate Dehydrogenase Total Bilirubin Direct Bilirubin CK-MB (CK-2) C-Reactive Protein NT-Pro-B Natriuret Pep Total Protein Albumin Arterial Blood Glucose Urine WBC (Auto) Urine Creatinine 02/03/20 02/03/20 02/03/20 07:04 11:32 12:49 WBC RBC Hgb Hct MCHC RDW MCV MCH Lymph % (Auto) [place] % (Auto) [place] # Eos # Lymph # (Auto) [place] # (Auto) Eos # (Auto) Seg Neutrophils % Seg Neuts % (Manual) Baso # (Auto) Lymphocytes % (Manual) Monocytes % (Manual) Eosinophils % (Manual) Basophils % (Manual) Seg Neutrophils # Seg Neutrophils # Man Lymphocytes # (Manual) Monocytes # (Manual) Eosinophils # (Manual) Nucleated RBC % Basophils # (Manual) PT INR APTT Heparin Anti-Xa Level ABG pH POC ABG pO2 ABG pO2 ABG HCO3 ABG O2 Saturation ABG Base Excess POC ABG pCO2 ABG Hemoglobin ABG Oxyhemoglobin ABG Chloride ABG Glucose Oxyhemoglobin Sodium Potassium Chloride 97.9 L Carbon Dioxide 33 H BUN 39 H Creatinine Glucose 119 H POC Glucose 138 H Lactic Acid Calcium Phosphorus Magnesium 2.60 H AST ALT Lactate Dehydrogenase Total Bilirubin Direct Bilirubin CK-MB (CK-2) C-Reactive Protein NT-Pro-B Natriuret Pep Total Protein Albumin Arterial Blood Glucose Urine WBC (Auto) Urine Creatinine 02/03/20 02/04/20 02/04/20 18:28 16:24 16:24 WBC RBC 3.38 L Hgb 8.6 L Hct 26.9 L MCHC RDW 19.5 H MCV 80 L MCH 26 L Lymph % (Auto) [place] % (Auto) [place] # Eos # Lymph # (Auto) [place] # (Auto) Eos # (Auto) Seg Neutrophils % Seg Neuts % (Manual) Baso # (Auto) Lymphocytes % (Manual) Monocytes % (Manual) Eosinophils % (Manual) Basophils % (Manual) Seg Neutrophils # Seg Neutrophils # Man Lymphocytes # (Manual) Monocytes # (Manual) Eosinophils # (Manual) Nucleated RBC % Basophils # (Manual) PT INR APTT Heparin Anti-Xa Level ABG pH POC ABG pO2 ABG pO2 ABG HCO3 ABG O2 Saturation ABG Base Excess POC ABG pCO2 ABG Hemoglobin ABG Oxyhemoglobin ABG Chloride ABG Glucose Oxyhemoglobin Sodium Potassium 3.4 L Chloride Carbon Dioxide 31 H BUN 37 H Creatinine Glucose 70 L POC Glucose 118 H Lactic Acid Calcium Phosphorus Magnesium AST 169 H ALT 394 H Lactate Dehydrogenase Total Bilirubin 1.50 H Direct Bilirubin CK-MB (CK-2) C-Reactive Protein NT-Pro-B Natriuret Pep Total Protein Albumin 2.9 L Arterial Blood Glucose Urine WBC (Auto) Urine Creatinine 02/05/20 02/05/20 02/05/20 00:41 06:37 17:14 WBC RBC Hgb Hct MCHC RDW MCV MCH Lymph % (Auto) [place] % (Auto) [place] # Eos # Lymph # (Auto) [place] # (Auto) Eos # (Auto) Seg Neutrophils % Seg Neuts % (Manual) Baso # (Auto) Lymphocytes % (Manual) Monocytes % (Manual) Eosinophils % (Manual) Basophils % (Manual) Seg Neutrophils # Seg Neutrophils # Man Lymphocytes # (Manual) Monocytes # (Manual) Eosinophils # (Manual) Nucleated RBC % Basophils # (Manual) PT INR APTT Heparin Anti-Xa Level ABG pH POC ABG pO2 ABG pO2 ABG HCO3 ABG O2 Saturation ABG Base Excess POC ABG pCO2 ABG Hemoglobin ABG Oxyhemoglobin ABG Chloride ABG Glucose Oxyhemoglobin Sodium Potassium 3.1 L Chloride Carbon Dioxide 35 H BUN 32 H Creatinine 0.7 L Glucose POC Glucose 69 L 127 H Lactic Acid Calcium Phosphorus Magnesium AST 134 H ALT 352 H Lactate Dehydrogenase Total Bilirubin 1.60 H Direct Bilirubin CK-MB (CK-2) C-Reactive Protein NT-Pro-B Natriuret Pep Total Protein Albumin 2.9 L Arterial Blood Glucose Urine WBC (Auto) Urine Creatinine 02/05/20 02/06/20 02/06/20 23:43 05:32 08:01 WBC RBC Hgb Hct MCHC RDW MCV MCH Lymph % (Auto) [place] % (Auto) [place] # Eos # Lymph # (Auto) [place] # (Auto) Eos # (Auto) Seg Neutrophils % Seg Neuts % (Manual) Baso # (Auto) Lymphocytes % (Manual) Monocytes % (Manual) Eosinophils % (Manual) Basophils % (Manual) Seg Neutrophils # Seg Neutrophils # Man Lymphocytes # (Manual) Monocytes # (Manual) Eosinophils # (Manual) Nucleated RBC % Basophils # (Manual) PT INR APTT Heparin Anti-Xa Level ABG pH POC ABG pO2 ABG pO2 ABG HCO3 ABG O2 Saturation ABG Base Excess POC ABG pCO2 ABG Hemoglobin ABG Oxyhemoglobin ABG Chloride ABG Glucose Oxyhemoglobin Sodium Potassium Chloride Carbon Dioxide BUN 40 H Creatinine Glucose 132 H POC Glucose 129 H 131 H Lactic Acid Calcium Phosphorus Magnesium AST ALT Lactate Dehydrogenase Total Bilirubin Direct Bilirubin CK-MB (CK-2) C-Reactive Protein NT-Pro-B Natriuret Pep Total Protein Albumin Arterial Blood Glucose Urine WBC (Auto) Urine Creatinine 02/06/20 02/06/20 02/06/20 11:51 16:28 17:32 WBC RBC Hgb Hct MCHC RDW MCV MCH Lymph % (Auto) [place] % (Auto) [place] # Eos # Lymph # (Auto) [place] # (Auto) Eos # (Auto) Seg Neutrophils % Seg Neuts % (Manual) Baso # (Auto) Lymphocytes % (Manual) Monocytes % (Manual) Eosinophils % (Manual) Basophils % (Manual) Seg Neutrophils # Seg Neutrophils # Man Lymphocytes # (Manual) Monocytes # (Manual) Eosinophils # (Manual) Nucleated RBC % Basophils # (Manual) PT INR APTT Heparin Anti-Xa Level ABG pH POC ABG pO2 ABG pO2 ABG HCO3 ABG O2 Saturation ABG Base Excess POC ABG pCO2 ABG Hemoglobin ABG Oxyhemoglobin ABG Chloride ABG Glucose Oxyhemoglobin Sodium Potassium Chloride Carbon Dioxide BUN Creatinine Glucose POC Glucose 167 H 129 H Lactic Acid Calcium Phosphorus Magnesium AST 824 H ALT 948 H Lactate Dehydrogenase Total Bilirubin 1.70 H Direct Bilirubin 1.2 H CK-MB (CK-2) C-Reactive Protein NT-Pro-B Natriuret Pep Total Protein Albumin 2.9 L Arterial Blood Glucose Urine WBC (Auto) Urine Creatinine 02/07/20 02/07/20 02/07/20 00:11 04:57 04:57 WBC RBC Hgb 9.2 L Hct 29.7 L MCHC 31 L RDW 20.2 H MCV 80 L MCH 25 L Lymph % (Auto) [place] % (Auto) [place] # Eos # Lymph # (Auto) [place] # (Auto) Eos # (Auto) Seg Neutrophils % Seg Neuts % (Manual) Baso # (Auto) Lymphocytes % (Manual) Monocytes % (Manual) Eosinophils % (Manual) Basophils % (Manual) Seg Neutrophils # Seg Neutrophils # Man Lymphocytes # (Manual) Monocytes # (Manual) Eosinophils # (Manual) Nucleated RBC % Basophils # (Manual) PT INR APTT Heparin Anti-Xa Level ABG pH POC ABG pO2 ABG pO2 ABG HCO3 ABG O2 Saturation ABG Base Excess POC ABG pCO2 ABG Hemoglobin ABG Oxyhemoglobin ABG Chloride ABG Glucose Oxyhemoglobin Sodium Potassium 3.4 L D Chloride Carbon Dioxide 32 H BUN 39 H Creatinine Glucose 106 H POC Glucose 121 H Lactic Acid Calcium Phosphorus Magnesium AST ALT Lactate Dehydrogenase Total Bilirubin Direct Bilirubin CK-MB (CK-2) C-Reactive Protein NT-Pro-B Natriuret Pep Total Protein Albumin Arterial Blood Glucose Urine WBC (Auto) Urine Creatinine 02/07/20 02/07/20 02/07/20 15:03 15:03 17:11 WBC RBC Hgb Hct MCHC RDW MCV MCH Lymph % (Auto) [place] % (Auto) [place] # Eos # Lymph # (Auto) [place] # (Auto) Eos # (Auto) Seg Neutrophils % Seg Neuts % (Manual) Baso # (Auto) Lymphocytes % (Manual) Monocytes % (Manual) Eosinophils % (Manual) Basophils % (Manual) Seg Neutrophils # Seg Neutrophils # Man Lymphocytes # (Manual) Monocytes # (Manual) Eosinophils # (Manual) Nucleated RBC % Basophils # (Manual) PT 27.0 H INR 2.46 H APTT Heparin Anti-Xa Level ABG pH POC ABG pO2 ABG pO2 ABG HCO3 ABG O2 Saturation ABG Base Excess POC ABG pCO2 ABG Hemoglobin ABG Oxyhemoglobin ABG Chloride ABG Glucose Oxyhemoglobin Sodium Potassium Chloride Carbon Dioxide BUN Creatinine Glucose POC Glucose 109 H Lactic Acid Calcium Phosphorus Magnesium AST 424 H ALT 796 H Lactate Dehydrogenase Total Bilirubin 1.60 H Direct Bilirubin 1.2 H CK-MB (CK-2) C-Reactive Protein NT-Pro-B Natriuret Pep Total Protein Albumin 2.9 L Arterial Blood Glucose Urine WBC (Auto) Urine Creatinine 02/08/20 02/08/20 02/08/20 12:14 17:44 19:00 WBC RBC Hgb Hct MCHC RDW MCV MCH Lymph % (Auto) [place] % (Auto) [place] # Eos # Lymph # (Auto) [place] # (Auto) Eos # (Auto) Seg Neutrophils % Seg Neuts % (Manual) Baso # (Auto) Lymphocytes % (Manual) Monocytes % (Manual) Eosinophils % (Manual) Basophils % (Manual) Seg Neutrophils # Seg Neutrophils # Man Lymphocytes # (Manual) Monocytes # (Manual) Eosinophils # (Manual) Nucleated RBC % Basophils # (Manual) PT INR APTT Heparin Anti-Xa Level ABG pH POC ABG pO2 ABG pO2 ABG HCO3 ABG O2 Saturation ABG Base Excess POC ABG pCO2 ABG Hemoglobin ABG Oxyhemoglobin ABG Chloride ABG Glucose Oxyhemoglobin Sodium Potassium Chloride Carbon Dioxide BUN Creatinine Glucose POC Glucose 111 H 107 H Lactic Acid Calcium Phosphorus Magnesium AST 309 H ALT 650 H Lactate Dehydrogenase Total Bilirubin 1.30 H Direct Bilirubin 0.9 H CK-MB (CK-2) C-Reactive Protein NT-Pro-B Natriuret Pep Total Protein 6.2 L Albumin 2.7 L Arterial Blood Glucose Urine WBC (Auto) Urine Creatinine 02/09/20 02/09/20 02/09/20 05:41 12:28 18:07 WBC RBC Hgb Hct MCHC RDW MCV MCH Lymph % (Auto) [place] % (Auto) [place] # Eos # Lymph # (Auto) [place] # (Auto) Eos # (Auto) Seg Neutrophils % Seg Neuts % (Manual) Baso # (Auto) Lymphocytes % (Manual) Monocytes % (Manual) Eosinophils % (Manual) Basophils % (Manual) Seg Neutrophils # Seg Neutrophils # Man Lymphocytes # (Manual) Monocytes # (Manual) Eosinophils # (Manual) Nucleated RBC % Basophils # (Manual) PT INR APTT Heparin Anti-Xa Level ABG pH POC ABG pO2 ABG pO2 ABG HCO3 ABG O2 Saturation ABG Base Excess POC ABG pCO2 ABG Hemoglobin ABG Oxyhemoglobin ABG Chloride ABG Glucose Oxyhemoglobin Sodium Potassium Chloride Carbon Dioxide BUN Creatinine Glucose POC Glucose 113 H 140 H 143 H Lactic Acid Calcium Phosphorus Magnesium AST ALT Lactate Dehydrogenase Total Bilirubin Direct Bilirubin CK-MB (CK-2) C-Reactive Protein NT-Pro-B Natriuret Pep Total Protein Albumin Arterial Blood Glucose Urine WBC (Auto) Urine Creatinine 02/09/20 02/09/20 02/10/20 21:40 23:45 06:00 WBC RBC Hgb Hct MCHC RDW MCV MCH Lymph % (Auto) [place] % (Auto) [place] # Eos # Lymph # (Auto) [place] # (Auto) Eos # (Auto) Seg Neutrophils % Seg Neuts % (Manual) Baso # (Auto) Lymphocytes % (Manual) Monocytes % (Manual) Eosinophils % (Manual) Basophils % (Manual) Seg Neutrophils # Seg Neutrophils # Man Lymphocytes # (Manual) Monocytes # (Manual) Eosinophils # (Manual) Nucleated RBC % Basophils # (Manual) PT INR APTT Heparin Anti-Xa Level ABG pH POC ABG pO2 ABG pO2 59.8 L ABG HCO3 33.3 H ABG O2 Saturation 88.9 L ABG Base Excess 7.4 H POC ABG pCO2 ABG Hemoglobin 10.4 L ABG Oxyhemoglobin ABG Chloride ABG Glucose Oxyhemoglobin 86.3 L Sodium Potassium Chloride Carbon Dioxide BUN Creatinine Glucose POC Glucose 127 H 114 H Lactic Acid Calcium Phosphorus Magnesium AST ALT Lactate Dehydrogenase Total Bilirubin Direct Bilirubin CK-MB (CK-2) C-Reactive Protein NT-Pro-B Natriuret Pep Total Protein Albumin Arterial Blood Glucose Urine WBC (Auto) Urine Creatinine 02/10/20 02/10/20 02/10/20 07:40 07:40 13:38 WBC 11.5 H RBC Hgb 10.6 L Hct 34.7 L MCHC 31 L RDW 19.8 H MCV 79 L MCH 24 L Lymph % (Auto) [place] % (Auto) 9.2 H [place] # Eos # Lymph # (Auto) [place] # (Auto) 1.1 H Eos # (Auto) Seg Neutrophils % Seg Neuts % (Manual) Baso # (Auto) Lymphocytes % (Manual) Monocytes % (Manual) Eosinophils % (Manual) Basophils % (Manual) Seg Neutrophils # Seg Neutrophils # Man Lymphocytes # (Manual) Monocytes # (Manual) Eosinophils # (Manual) Nucleated RBC % Basophils # (Manual) PT INR APTT Heparin Anti-Xa Level ABG pH POC ABG pO2 ABG pO2 ABG HCO3 ABG O2 Saturation ABG Base Excess POC ABG pCO2 ABG Hemoglobin ABG Oxyhemoglobin ABG Chloride ABG Glucose Oxyhemoglobin Sodium 151 H Potassium Chloride 107.2 H Carbon Dioxide 36 H BUN 25 H Creatinine 0.7 L Glucose 114 H POC Glucose 116 H Lactic Acid Calcium Phosphorus Magnesium 2.40 H AST ALT Lactate Dehydrogenase Total Bilirubin Direct Bilirubin CK-MB (CK-2) C-Reactive Protein NT-Pro-B Natriuret Pep Total Protein Albumin Arterial Blood Glucose Urine WBC (Auto) Urine Creatinine 02/10/20 02/11/20 02/11/20 17:44 05:47 12:21 WBC RBC Hgb Hct MCHC RDW MCV MCH Lymph % (Auto) [place] % (Auto) [place] # Eos # Lymph # (Auto) [place] # (Auto) Eos # (Auto) Seg Neutrophils % Seg Neuts % (Manual) Baso # (Auto) Lymphocytes % (Manual) Monocytes % (Manual) Eosinophils % (Manual) Basophils % (Manual) Seg Neutrophils # Seg Neutrophils # Man Lymphocytes # (Manual) Monocytes # (Manual) Eosinophils # (Manual) Nucleated RBC % Basophils # (Manual) PT INR APTT Heparin Anti-Xa Level ABG pH POC ABG pO2 ABG pO2 ABG HCO3 ABG O2 Saturation ABG Base Excess POC ABG pCO2 ABG Hemoglobin ABG Oxyhemoglobin ABG Chloride ABG Glucose Oxyhemoglobin Sodium Potassium Chloride Carbon Dioxide BUN Creatinine Glucose POC Glucose 139 H 173 H 143 H Lactic Acid Calcium Phosphorus Magnesium AST ALT Lactate Dehydrogenase Total Bilirubin Direct Bilirubin CK-MB (CK-2) C-Reactive Protein NT-Pro-B Natriuret Pep Total Protein Albumin Arterial Blood Glucose Urine WBC (Auto) Urine Creatinine 02/11/20 02/11/20 02/12/20 13:43 14:11 00:15 WBC RBC Hgb Hct MCHC RDW MCV MCH Lymph % (Auto) [place] % (Auto) [place] # Eos # Lymph # (Auto) [place] # (Auto) Eos # (Auto) Seg Neutrophils % Seg Neuts % (Manual) Baso # (Auto) Lymphocytes % (Manual) Monocytes % (Manual) Eosinophils % (Manual) Basophils % (Manual) Seg Neutrophils # Seg Neutrophils # Man Lymphocytes # (Manual) Monocytes # (Manual) Eosinophils # (Manual) Nucleated RBC % Basophils # (Manual) PT INR APTT Heparin Anti-Xa Level ABG pH 7.502 H POC ABG pO2 77.7 L ABG pO2 ABG HCO3 ABG O2 Saturation ABG Base Excess POC ABG pCO2 ABG Hemoglobin 11.1 L ABG Oxyhemoglobin ABG Chloride 108.0 H ABG Glucose 151 H Oxyhemoglobin Sodium Potassium Chloride Carbon Dioxide BUN Creatinine Glucose POC Glucose 130 H 125 H Lactic Acid Calcium Phosphorus Magnesium AST ALT Lactate Dehydrogenase Total Bilirubin Direct Bilirubin CK-MB (CK-2) C-Reactive Protein NT-Pro-B Natriuret Pep Total Protein Albumin Arterial Blood Glucose 151 H Urine WBC (Auto) Urine Creatinine 02/12/20 02/12/20 02/12/20 04:56 04:56 17:42 WBC RBC Hgb 9.9 L Hct 31.8 L MCHC 31 L RDW 19.4 H MCV 79 L MCH 25 L Lymph % (Auto) [place] % (Auto) 10.3 H [place] # Eos # Lymph # (Auto) [place] # (Auto) 1.0 H Eos # (Auto) Seg Neutrophils % Seg Neuts % (Manual) Baso # (Auto) Lymphocytes % (Manual) Monocytes % (Manual) Eosinophils % (Manual) Basophils % (Manual) Seg Neutrophils # Seg Neutrophils # Man Lymphocytes # (Manual) Monocytes # (Manual) Eosinophils # (Manual) Nucleated RBC % Basophils # (Manual) PT INR APTT Heparin Anti-Xa Level ABG pH POC ABG pO2 ABG pO2 ABG HCO3 ABG O2 Saturation ABG Base Excess POC ABG pCO2 ABG Hemoglobin ABG Oxyhemoglobin ABG Chloride ABG Glucose Oxyhemoglobin Sodium 149 H Potassium Chloride 108.6 H Carbon Dioxide BUN 28 H Creatinine 0.7 L Glucose 108 H POC Glucose 113 H Lactic Acid Calcium Phosphorus Magnesium AST ALT Lactate Dehydrogenase Total Bilirubin Direct Bilirubin CK-MB (CK-2) C-Reactive Protein NT-Pro-B Natriuret Pep Total Protein Albumin Arterial Blood Glucose Urine WBC (Auto) Urine Creatinine 02/13/20 02/13/20 02/13/20 00:39 05:36 12:25 WBC RBC Hgb Hct MCHC RDW MCV MCH Lymph % (Auto) [place] % (Auto) [place] # Eos # Lymph # (Auto) [place] # (Auto) Eos # (Auto) Seg Neutrophils % Seg Neuts % (Manual) Baso # (Auto) Lymphocytes % (Manual) Monocytes % (Manual) Eosinophils % (Manual) Basophils % (Manual) Seg Neutrophils # Seg Neutrophils # Man Lymphocytes # (Manual) Monocytes # (Manual) Eosinophils # (Manual) Nucleated RBC % Basophils # (Manual) PT INR APTT Heparin Anti-Xa Level ABG pH POC ABG pO2 ABG pO2 ABG HCO3 ABG O2 Saturation ABG Base Excess POC ABG pCO2 ABG Hemoglobin ABG Oxyhemoglobin ABG Chloride ABG Glucose Oxyhemoglobin Sodium Potassium Chloride Carbon Dioxide BUN Creatinine Glucose POC Glucose 129 H 126 H 129 H Lactic Acid Calcium Phosphorus Magnesium AST ALT Lactate Dehydrogenase Total Bilirubin Direct Bilirubin CK-MB (CK-2) C-Reactive Protein NT-Pro-B Natriuret Pep Total Protein Albumin Arterial Blood Glucose Urine WBC (Auto) Urine Creatinine 02/13/20 02/14/20 02/14/20 17:59 00:15 05:41 WBC RBC Hgb Hct MCHC RDW MCV MCH Lymph % (Auto) [place] % (Auto) [place] # Eos # Lymph # (Auto) [place] # (Auto) Eos # (Auto) Seg Neutrophils % Seg Neuts % (Manual) Baso # (Auto) Lymphocytes % (Manual) Monocytes % (Manual) Eosinophils % (Manual) Basophils % (Manual) Seg Neutrophils # Seg Neutrophils # Man Lymphocytes # (Manual) Monocytes # (Manual) Eosinophils # (Manual) Nucleated RBC % Basophils # (Manual) PT INR APTT Heparin Anti-Xa Level ABG pH POC ABG pO2 ABG pO2 ABG HCO3 ABG O2 Saturation ABG Base Excess POC ABG pCO2 ABG Hemoglobin ABG Oxyhemoglobin ABG Chloride ABG Glucose Oxyhemoglobin Sodium Potassium Chloride Carbon Dioxide BUN Creatinine Glucose POC Glucose 153 H 130 H 130 H Lactic Acid Calcium Phosphorus Magnesium AST ALT Lactate Dehydrogenase Total Bilirubin Direct Bilirubin CK-MB (CK-2) C-Reactive Protein NT-Pro-B Natriuret Pep Total Protein Albumin Arterial Blood Glucose Urine WBC (Auto) Urine Creatinine 02/14/20 02/15/20 02/15/20 11:32 00:12 05:27 WBC RBC Hgb Hct MCHC RDW MCV MCH Lymph % (Auto) [place] % (Auto) [place] # Eos # Lymph # (Auto) [place] # (Auto) Eos # (Auto) Seg Neutrophils % Seg Neuts % (Manual) Baso # (Auto) Lymphocytes % (Manual) Monocytes % (Manual) Eosinophils % (Manual) Basophils % (Manual) Seg Neutrophils # Seg Neutrophils # Man Lymphocytes # (Manual) Monocytes # (Manual) Eosinophils # (Manual) Nucleated RBC % Basophils # (Manual) PT INR APTT Heparin Anti-Xa Level ABG pH POC ABG pO2 ABG pO2 ABG HCO3 ABG O2 Saturation ABG Base Excess POC ABG pCO2 ABG Hemoglobin ABG Oxyhemoglobin ABG Chloride ABG Glucose Oxyhemoglobin Sodium Potassium Chloride Carbon Dioxide BUN Creatinine Glucose POC Glucose 157 H 124 H 111 H Lactic Acid Calcium Phosphorus Magnesium AST ALT Lactate Dehydrogenase Total Bilirubin Direct Bilirubin CK-MB (CK-2) C-Reactive Protein NT-Pro-B Natriuret Pep Total Protein Albumin Arterial Blood Glucose Urine WBC (Auto) Urine Creatinine 02/15/20 02/15/20 02/15/20 06:59 06:59 11:14 WBC RBC Hgb 10.4 L Hct 33.7 L MCHC 31 L RDW 19.4 H MCV 80 L MCH 24 L Lymph % (Auto) [place] % (Auto) [place] # Eos # Lymph # (Auto) [place] # (Auto) Eos # (Auto) Seg Neutrophils % Seg Neuts % (Manual) Baso # (Auto) Lymphocytes % (Manual) Monocytes % (Manual) Eosinophils % (Manual) Basophils % (Manual) 2.0 H Seg Neutrophils # Seg Neutrophils # Man Lymphocytes # (Manual) Monocytes # (Manual) Eosinophils # (Manual) Nucleated RBC % 1.0 H Basophils # (Manual) 0.2 H PT INR APTT Heparin Anti-Xa Level ABG pH POC ABG pO2 ABG pO2 ABG HCO3 ABG O2 Saturation ABG Base Excess POC ABG pCO2 ABG Hemoglobin ABG Oxyhemoglobin ABG Chloride ABG Glucose Oxyhemoglobin Sodium 149 H Potassium Chloride 108.4 H Carbon Dioxide 31 H BUN 40 H Creatinine 0.7 L Glucose 150 H POC Glucose 128 H Lactic Acid Calcium Phosphorus Magnesium AST ALT Lactate Dehydrogenase Total Bilirubin Direct Bilirubin CK-MB (CK-2) C-Reactive Protein NT-Pro-B Natriuret Pep Total Protein Albumin Arterial Blood Glucose Urine WBC (Auto) Urine Creatinine 02/15/20 02/15/20 02/16/20 17:46 23:50 05:03 WBC RBC Hgb Hct MCHC RDW MCV MCH Lymph % (Auto) [place] % (Auto) [place] # Eos # Lymph # (Auto) [place] # (Auto) Eos # (Auto) Seg Neutrophils % Seg Neuts % (Manual) Baso # (Auto) Lymphocytes % (Manual) Monocytes % (Manual) Eosinophils % (Manual) Basophils % (Manual) Seg Neutrophils # Seg Neutrophils # Man Lymphocytes # (Manual) Monocytes # (Manual) Eosinophils # (Manual) Nucleated RBC % Basophils # (Manual) PT INR APTT Heparin Anti-Xa Level ABG pH POC ABG pO2 ABG pO2 ABG HCO3 ABG O2 Saturation ABG Base Excess POC ABG pCO2 ABG Hemoglobin ABG Oxyhemoglobin ABG Chloride ABG Glucose Oxyhemoglobin Sodium Potassium Chloride Carbon Dioxide BUN Creatinine Glucose POC Glucose 154 H 135 H 148 H Lactic Acid Calcium Phosphorus Magnesium AST ALT Lactate Dehydrogenase Total Bilirubin Direct Bilirubin CK-MB (CK-2) C-Reactive Protein NT-Pro-B Natriuret Pep Total Protein Albumin Arterial Blood Glucose Urine WBC (Auto) Urine Creatinine 02/16/20 02/16/20 02/16/20 07:53 11:28 17:52 WBC RBC Hgb Hct MCHC RDW MCV MCH Lymph % (Auto) [place] % (Auto) [place] # Eos # Lymph # (Auto) [place] # (Auto) Eos # (Auto) Seg Neutrophils % Seg Neuts % (Manual) Baso # (Auto) Lymphocytes % (Manual) Monocytes % (Manual) Eosinophils % (Manual) Basophils % (Manual) Seg Neutrophils # Seg Neutrophils # Man Lymphocytes # (Manual) Monocytes # (Manual) Eosinophils # (Manual) Nucleated RBC % Basophils # (Manual) PT INR APTT Heparin Anti-Xa Level ABG pH POC ABG pO2 ABG pO2 ABG HCO3 ABG O2 Saturation ABG Base Excess POC ABG pCO2 ABG Hemoglobin ABG Oxyhemoglobin ABG Chloride ABG Glucose Oxyhemoglobin Sodium Potassium Chloride 107.9 H Carbon Dioxide BUN 38 H Creatinine 0.6 L Glucose 151 H POC Glucose 123 H 152 H Lactic Acid Calcium Phosphorus Magnesium AST ALT Lactate Dehydrogenase Total Bilirubin Direct Bilirubin CK-MB (CK-2) C-Reactive Protein NT-Pro-B Natriuret Pep Total Protein Albumin Arterial Blood Glucose Urine WBC (Auto) Urine Creatinine 02/16/20 02/17/20 02/17/20 23:49 06:24 11:36 WBC RBC Hgb Hct MCHC RDW MCV MCH Lymph % (Auto) [place] % (Auto) [place] # Eos # Lymph # (Auto) [place] # (Auto) Eos # (Auto) Seg Neutrophils % Seg Neuts % (Manual) Baso # (Auto) Lymphocytes % (Manual) Monocytes % (Manual) Eosinophils % (Manual) Basophils % (Manual) Seg Neutrophils # Seg Neutrophils # Man Lymphocytes # (Manual) Monocytes # (Manual) Eosinophils # (Manual) Nucleated RBC % Basophils # (Manual) PT INR APTT Heparin Anti-Xa Level ABG pH POC ABG pO2 ABG pO2 ABG HCO3 ABG O2 Saturation ABG Base Excess POC ABG pCO2 ABG Hemoglobin ABG Oxyhemoglobin ABG Chloride ABG Glucose Oxyhemoglobin Sodium Potassium Chloride Carbon Dioxide BUN Creatinine Glucose POC Glucose 156 H 193 H 162 H Lactic Acid Calcium Phosphorus Magnesium AST ALT Lactate Dehydrogenase Total Bilirubin Direct Bilirubin CK-MB (CK-2) C-Reactive Protein NT-Pro-B Natriuret Pep Total Protein Albumin Arterial Blood Glucose Urine WBC (Auto) Urine Creatinine 02/17/20 02/17/20 02/18/20 17:55 23:28 05:11 WBC RBC Hgb Hct MCHC RDW MCV MCH Lymph % (Auto) [place] % (Auto) [place] # Eos # Lymph # (Auto) [place] # (Auto) Eos # (Auto) Seg Neutrophils % Seg Neuts % (Manual) Baso # (Auto) Lymphocytes % (Manual) Monocytes % (Manual) Eosinophils % (Manual) Basophils % (Manual) Seg Neutrophils # Seg Neutrophils # Man Lymphocytes # (Manual) Monocytes # (Manual) Eosinophils # (Manual) Nucleated RBC % Basophils # (Manual) PT INR APTT Heparin Anti-Xa Level ABG pH POC ABG pO2 ABG pO2 ABG HCO3 ABG O2 Saturation ABG Base Excess POC ABG pCO2 ABG Hemoglobin ABG Oxyhemoglobin ABG Chloride ABG Glucose Oxyhemoglobin Sodium Potassium Chloride Carbon Dioxide BUN Creatinine Glucose POC Glucose 165 H 146 H 122 H Lactic Acid Calcium Phosphorus Magnesium AST ALT Lactate Dehydrogenase Total Bilirubin Direct Bilirubin CK-MB (CK-2) C-Reactive Protein NT-Pro-B Natriuret Pep Total Protein Albumin Arterial Blood Glucose Urine WBC (Auto) Urine Creatinine 02/18/20 02/18/20 02/19/20 12:24 17:29 00:01 WBC RBC Hgb Hct MCHC RDW MCV MCH Lymph % (Auto) [place] % (Auto) [place] # Eos # Lymph # (Auto) [place] # (Auto) Eos # (Auto) Seg Neutrophils % Seg Neuts % (Manual) Baso # (Auto) Lymphocytes % (Manual) Monocytes % (Manual) Eosinophils % (Manual) Basophils % (Manual) Seg Neutrophils # Seg Neutrophils # Man Lymphocytes # (Manual) Monocytes # (Manual) Eosinophils # (Manual) Nucleated RBC % Basophils # (Manual) PT INR APTT Heparin Anti-Xa Level ABG pH POC ABG pO2 ABG pO2 ABG HCO3 ABG O2 Saturation ABG Base Excess POC ABG pCO2 ABG Hemoglobin ABG Oxyhemoglobin ABG Chloride ABG Glucose Oxyhemoglobin Sodium Potassium Chloride Carbon Dioxide BUN Creatinine Glucose POC Glucose 162 H 136 H 145 H Lactic Acid Calcium Phosphorus Magnesium AST ALT Lactate Dehydrogenase Total Bilirubin Direct Bilirubin CK-MB (CK-2) C-Reactive Protein NT-Pro-B Natriuret Pep Total Protein Albumin Arterial Blood Glucose Urine WBC (Auto) Urine Creatinine 02/19/20 02/19/20 02/19/20 05:53 11:44 17:32 WBC RBC Hgb Hct MCHC RDW MCV MCH Lymph % (Auto) [place] % (Auto) [place] # Eos # Lymph # (Auto) [place] # (Auto) Eos # (Auto) Seg Neutrophils % Seg Neuts % (Manual) Baso # (Auto) Lymphocytes % (Manual) Monocytes % (Manual) Eosinophils % (Manual) Basophils % (Manual) Seg Neutrophils # Seg Neutrophils # Man Lymphocytes # (Manual) Monocytes # (Manual) Eosinophils # (Manual) Nucleated RBC % Basophils # (Manual) PT INR APTT Heparin Anti-Xa Level ABG pH POC ABG pO2 ABG pO2 ABG HCO3 ABG O2 Saturation ABG Base Excess POC ABG pCO2 ABG Hemoglobin ABG Oxyhemoglobin ABG Chloride ABG Glucose Oxyhemoglobin Sodium Potassium Chloride Carbon Dioxide BUN Creatinine Glucose POC Glucose 116 H 120 H 154 H Lactic Acid Calcium Phosphorus Magnesium AST ALT Lactate Dehydrogenase Total Bilirubin Direct Bilirubin CK-MB (CK-2) C-Reactive Protein NT-Pro-B Natriuret Pep Total Protein Albumin Arterial Blood Glucose Urine WBC (Auto) Urine Creatinine 02/19/20 02/20/20 02/20/20 23:43 00:24 00:24 WBC RBC Hgb 9.4 L Hct 30.0 L MCHC 31 L RDW 20.4 H MCV 79 L MCH 25 L Lymph % (Auto) [place] % (Auto) 8.5 H [place] # Eos # Lymph # (Auto) [place] # (Auto) Eos # (Auto) Seg Neutrophils % Seg Neuts % (Manual) Baso # (Auto) Lymphocytes % (Manual) Monocytes % (Manual) Eosinophils % (Manual) Basophils % (Manual) Seg Neutrophils # Seg Neutrophils # Man Lymphocytes # (Manual) Monocytes # (Manual) Eosinophils # (Manual) Nucleated RBC % Basophils # (Manual) PT INR APTT Heparin Anti-Xa Level ABG pH POC ABG pO2 ABG pO2 ABG HCO3 ABG O2 Saturation ABG Base Excess POC ABG pCO2 ABG Hemoglobin ABG Oxyhemoglobin ABG Chloride ABG Glucose Oxyhemoglobin Sodium 147 H Potassium 3.4 L Chloride Carbon Dioxide 31 H BUN 34 H Creatinine 0.5 L Glucose 135 H POC Glucose 122 H Lactic Acid Calcium Phosphorus Magnesium AST ALT Lactate Dehydrogenase Total Bilirubin Direct Bilirubin CK-MB (CK-2) C-Reactive Protein NT-Pro-B Natriuret Pep Total Protein Albumin Arterial Blood Glucose Urine WBC (Auto) Urine Creatinine 02/20/20 02/20/20 02/20/20 06:07 06:45 12:03 WBC RBC Hgb Hct MCHC RDW MCV MCH Lymph % (Auto) [place] % (Auto) [place] # Eos # Lymph # (Auto) [place] # (Auto) Eos # (Auto) Seg Neutrophils % Seg Neuts % (Manual) Baso # (Auto) Lymphocytes % (Manual) Monocytes % (Manual) Eosinophils % (Manual) Basophils % (Manual) Seg Neutrophils # Seg Neutrophils # Man Lymphocytes # (Manual) Monocytes # (Manual) Eosinophils # (Manual) Nucleated RBC % Basophils # (Manual) PT INR APTT Heparin Anti-Xa Level ABG pH 7.461 H POC ABG pO2 ABG pO2 ABG HCO3 33.3 H ABG O2 Saturation ABG Base Excess 8.4 H POC ABG pCO2 ABG Hemoglobin 10.0 L ABG Oxyhemoglobin ABG Chloride ABG Glucose Oxyhemoglobin 94.1 L Sodium Potassium Chloride Carbon Dioxide BUN Creatinine Glucose POC Glucose 109 H 128 H Lactic Acid Calcium Phosphorus Magnesium AST ALT Lactate Dehydrogenase Total Bilirubin Direct Bilirubin CK-MB (CK-2) C-Reactive Protein NT-Pro-B Natriuret Pep Total Protein Albumin Arterial Blood Glucose Urine WBC (Auto) Urine Creatinine 02/20/20 02/20/20 02/21/20 18:02 23:55 05:42 WBC RBC Hgb Hct MCHC RDW MCV MCH Lymph % (Auto) [place] % (Auto) [place] # Eos # Lymph # (Auto) [place] # (Auto) Eos # (Auto) Seg Neutrophils % Seg Neuts % (Manual) Baso # (Auto) Lymphocytes % (Manual) Monocytes % (Manual) Eosinophils % (Manual) Basophils % (Manual) Seg Neutrophils # Seg Neutrophils # Man Lymphocytes # (Manual) Monocytes # (Manual) Eosinophils # (Manual) Nucleated RBC % Basophils # (Manual) PT INR APTT Heparin Anti-Xa Level ABG pH POC ABG pO2 ABG pO2 ABG HCO3 ABG O2 Saturation ABG Base Excess POC ABG pCO2 ABG Hemoglobin ABG Oxyhemoglobin ABG Chloride ABG Glucose Oxyhemoglobin Sodium Potassium Chloride Carbon Dioxide BUN Creatinine Glucose POC Glucose 118 H 125 H 127 H Lactic Acid Calcium Phosphorus Magnesium AST ALT Lactate Dehydrogenase Total Bilirubin Direct Bilirubin CK-MB (CK-2) C-Reactive Protein NT-Pro-B Natriuret Pep Total Protein Albumin Arterial Blood Glucose Urine WBC (Auto) Urine Creatinine 02/21/20 02/21/20 02/21/20 12:10 17:35 23:40 WBC RBC Hgb Hct MCHC RDW MCV MCH Lymph % (Auto) [place] % (Auto) [place] # Eos # Lymph # (Auto) [place] # (Auto) Eos # (Auto) Seg Neutrophils % Seg Neuts % (Manual) Baso # (Auto) Lymphocytes % (Manual) Monocytes % (Manual) Eosinophils % (Manual) Basophils % (Manual) Seg Neutrophils # Seg Neutrophils # Man Lymphocytes # (Manual) Monocytes # (Manual) Eosinophils # (Manual) Nucleated RBC % Basophils # (Manual) PT INR APTT Heparin Anti-Xa Level ABG pH POC ABG pO2 ABG pO2 ABG HCO3 ABG O2 Saturation ABG Base Excess POC ABG pCO2 ABG Hemoglobin ABG Oxyhemoglobin ABG Chloride ABG Glucose Oxyhemoglobin Sodium Potassium Chloride Carbon Dioxide BUN Creatinine Glucose POC Glucose 128 H 113 H 125 H Lactic Acid Calcium Phosphorus Magnesium AST ALT Lactate Dehydrogenase Total Bilirubin Direct Bilirubin CK-MB (CK-2) C-Reactive Protein NT-Pro-B Natriuret Pep Total Protein Albumin Arterial Blood Glucose Urine WBC (Auto) Urine Creatinine 02/22/20 02/22/20 02/22/20 05:57 08:06 08:06 WBC RBC Hgb 10.8 L Hct 35.2 L MCHC 31 L RDW 21.8 H MCV 80 L MCH 25 L Lymph % (Auto) [place] % (Auto) [place] # Eos # Lymph # (Auto) [place] # (Auto) Eos # (Auto) Seg Neutrophils % 71.5 H Seg Neuts % (Manual) Baso # (Auto) Lymphocytes % (Manual) Monocytes % (Manual) Eosinophils % (Manual) Basophils % (Manual) Seg Neutrophils # Seg Neutrophils # Man Lymphocytes # (Manual) Monocytes # (Manual) Eosinophils # (Manual) Nucleated RBC % Basophils # (Manual) PT INR APTT Heparin Anti-Xa Level ABG pH POC ABG pO2 ABG pO2 ABG HCO3 ABG O2 Saturation ABG Base Excess POC ABG pCO2 ABG Hemoglobin ABG Oxyhemoglobin ABG Chloride ABG Glucose Oxyhemoglobin Sodium 146 H Potassium Chloride Carbon Dioxide 34 H BUN 21 H Creatinine 0.4 L Glucose 149 H POC Glucose 138 H Lactic Acid Calcium Phosphorus Magnesium AST ALT Lactate Dehydrogenase Total Bilirubin Direct Bilirubin CK-MB (CK-2) C-Reactive Protein NT-Pro-B Natriuret Pep Total Protein Albumin Arterial Blood Glucose Urine WBC (Auto) Urine Creatinine 02/22/20 02/22/20 02/22/20 11:47 17:11 23:25 WBC RBC Hgb Hct MCHC RDW MCV MCH Lymph % (Auto) [place] % (Auto) [place] # Eos # Lymph # (Auto) [place] # (Auto) Eos # (Auto) Seg Neutrophils % Seg Neuts % (Manual) Baso # (Auto) Lymphocytes % (Manual) Monocytes % (Manual) Eosinophils % (Manual) Basophils % (Manual) Seg Neutrophils # Seg Neutrophils # Man Lymphocytes # (Manual) Monocytes # (Manual) Eosinophils # (Manual) Nucleated RBC % Basophils # (Manual) PT INR APTT Heparin Anti-Xa Level ABG pH POC ABG pO2 ABG pO2 ABG HCO3 ABG O2 Saturation ABG Base Excess POC ABG pCO2 ABG Hemoglobin ABG Oxyhemoglobin ABG Chloride ABG Glucose Oxyhemoglobin Sodium Potassium Chloride Carbon Dioxide BUN Creatinine Glucose POC Glucose 149 H 144 H 142 H Lactic Acid Calcium Phosphorus Magnesium AST ALT Lactate Dehydrogenase Total Bilirubin Direct Bilirubin CK-MB (CK-2) C-Reactive Protein NT-Pro-B Natriuret Pep Total Protein Albumin Arterial Blood Glucose Urine WBC (Auto) Urine Creatinine 02/23/20 02/23/20 05:22 11:37 WBC RBC Hgb Hct MCHC RDW MCV MCH Lymph % (Auto) [place] % (Auto) [place] # Eos # Lymph # (Auto) [place] # (Auto) Eos # (Auto) Seg Neutrophils % Seg Neuts % (Manual) Baso # (Auto) Lymphocytes % (Manual) Monocytes % (Manual) Eosinophils % (Manual) Basophils % (Manual) Seg Neutrophils # Seg Neutrophils # Man Lymphocytes # (Manual) Monocytes # (Manual) Eosinophils # (Manual) Nucleated RBC % Basophils # (Manual) PT INR APTT Heparin Anti-Xa Level ABG pH POC ABG pO2 ABG pO2 ABG HCO3 ABG O2 Saturation ABG Base Excess POC ABG pCO2 ABG Hemoglobin ABG Oxyhemoglobin ABG Chloride ABG Glucose Oxyhemoglobin Sodium Potassium Chloride Carbon Dioxide BUN Creatinine Glucose POC Glucose 144 H 113 H Lactic Acid Calcium Phosphorus Magnesium AST ALT Lactate Dehydrogenase Total Bilirubin Direct Bilirubin CK-MB (CK-2) C-Reactive Protein NT-Pro-B Natriuret Pep Total Protein Albumin Arterial Blood Glucose Urine WBC (Auto) Urine Creatinine Chest x-ray: pending Allied health notes reviewed: nursing
[2020-02-23] MEDS: DIGOXIN 0.5 MG/2 ML INJ IV SCH (17:03)
[2020-02-23] MEDS: POLYETHYLENE GLYCOL 3350 17 GM POWDER PO SCH (20:46)
[2020-02-23] MEDS: TAMSULOSIN 0.4 MG CAP PO SCH (20:48)
[2020-02-24] MEDS: POLYETHYLENE GLYCOL 3350 17 GM POWDER PO SCH ×2 (05:27→23:20)
[2020-02-24] MEDS: TAMSULOSIN 0.4 MG CAP PO SCH ×2 (05:27→23:20)
[2020-02-24] MEDS: DOCUSATE SODIUM 100 MG/10 ML ORAL LIQD FEEDTUBE SCH ×3 (05:27→23:20)
[2020-02-24] MEDS: INSULIN REGULAR, HUMAN 100 UNIT/ML 3ML VIAL SUB-Q SCH ×3 (05:28→18:43)
[2020-02-24] MEDS: GLYCOPYRROLATE 1 MG TAB PO SCH ×2 (08:28→13:31)
[2020-02-24] MEDS: MIDODRINE 5 MG TAB PO SCH ×3 (08:28→17:09)
[2020-02-24] MEDS: APIXABAN 5 MG TAB PO SCH ×2 (10:25→23:21)
[2020-02-24] MEDS: LANSOPRAZOLE 30 MG SOLUTAB FEEDTUBE SCH (10:25)
[2020-02-24] MEDS: QUEtiapine 100 MG TAB PO SCH ×2 (10:25→23:20)
[2020-02-24] MEDS: CLOPIDOGREL 75 MG TAB PO SCH (10:26)
--- NOTE | 2020-02-24 11:51 | Progress Note ---
Assessment and Plan Chest pain, resolved LHC done 01/22/20 widely patent previous LAD stent. We found mild nonobstructive atherosclerosis of the mid right coronary artery. Otherwise the rest of the coronary system was without significant atherosclerosis. LVEF 40 to 45%. There was some hypokinesis of the basal inferior wall suggestive of previous or recent infarct. ECG done 01/19/20 shows sinus rhythm with low voltage QRS and subtle ST segment elevations in the inferolateral leads that suggested possible concern for an acute injury at that time. Atrial fibrillation, rate control on digoxin amiodarone discontinued due to liver transaminases Ischemic Cardiomyopathy re-echo this presentation reports an LVEF 40-45%. Hx of CAD Multifocal pneumonia negative COVID-19 test x 3 Chronic Respiratory failure s/p trach History of COPD Acute PE/DVT -on Eliquis Anemia Partial SBO vs ileus Conservative cardiac management. Subjective Date of service: 02/24/20 Principal diagnosis: Ac hypoxemic resp failure; Pneumonia; PUI COVID-19; CHF; COPD; HTN Interval history: No interval cardiac changes. Atrial fibrillation with a well controlled ventricular rate on telemetry. Objective Vital Signs Temp Pulse Pulse Pulse Resp BP Pulse Ox 02/24/20 11:00 94 H 14 135/72 99 02/24/20 10:30 109 H 22 113/82 96 02/24/20 10:00 104 H 18 120/84 98 02/24/20 09:30 102 H 20 127/88 96 02/24/20 09:00 104 H 18 97/72 100 02/24/20 08:58 108 H 19 97/72 100 02/24/20 08:47 103 H 103/80 100 02/24/20 08:46 02/24/20 08:30 113 H 12 114/92 100 02/24/20 08:00 97.0 F L 108 H 108 H 18 114/92 98 02/24/20 07:30 83 19 114/63 99 02/24/20 07:00 87 22 115/79 99 02/24/20 06:30 117 H 20 115/86 100 02/24/20 06:00 100 H 20 115/86 98 02/24/20 05:30 92 H 17 117/80 99 02/24/20 05:00 106 H 20 109/88 98 02/24/20 04:30 115 H 15 124/86 97 02/24/20 04:00 97.8 F 99 H 95 H 18 115/86 98 02/24/20 03:30 87 19 101/76 98 02/24/20 03:00 93 H 18 120/80 98 02/24/20 02:30 103 H 21 111/81 96 02/24/20 02:00 83 18 105/68 99 02/24/20 01:30 97 H 16 108/77 97 02/24/20 01:00 125 H 18 104/73 95 02/24/20 00:30 83 21 104/73 98 02/24/20 00:00 97.5 F L 83 21 95 02/23/20 23:53 69 21 108/67 95 02/23/20 23:30 81 24 108/67 93 02/23/20 23:26 85 126/79 94 02/23/20 23:00 92 H 18 126/79 96 02/23/20 22:31 93 H 16 124/105 96 02/23/20 22:00 85 17 108/79 96 02/23/20 21:31 80 15 123/57 97 02/23/20 21:01 105 H 23 133/80 98 02/23/20 20:31 80 17 133/80 95 02/23/20 20:18 02/23/20 20:01 76 16 125/80 98 02/23/20 20:00 97.4 F L 73 87 87 22 125/80 97 02/23/20 19:30 84 23 125/87 95 02/23/20 19:01 92 H 22 122/80 97 02/23/20 18:31 100 H 20 111/76 96 02/23/20 18:00 88 20 122/80 95 02/23/20 17:35 02/23/20 17:31 104 H 22 101/68 97 02/23/20 17:03 76 101/68 02/23/20 17:01 81 17 101/68 99 02/23/20 16:55 92 H 122/80 97 02/23/20 16:30 108 H 25 H 123/91 96 02/23/20 16:01 83 22 109/91 96 02/23/20 16:00 97.6 F 99 H 95 H 25 H 98 02/23/20 15:30 118 H 24 109/91 94 02/23/20 15:00 105 H 22 109/82 98 02/23/20 14:31 127 H 22 101/80 97 02/23/20 14:01 95 H 15 113/80 99 02/23/20 13:30 94 H 21 91/79 99 02/23/20 13:00 92 H 21 111/81 98 02/23/20 12:31 103 H 25 H 105/90 96 02/23/20 12:19 104 H 22 101/81 96 02/23/20 12:01 104 H 21 101/81 98 02/23/20 12:00 97.8 F 108 H 113 H 23 96 Pulse Ox 02/24/20 11:00 02/24/20 10:30 02/24/20 10:00 02/24/20 09:30 02/24/20 09:00 02/24/20 08:58 02/24/20 08:47 02/24/20 08:46 99 02/24/20 08:30 02/24/20 08:00 02/24/20 07:30 02/24/20 07:00 02/24/20 06:30 02/24/20 06:00 02/24/20 05:30 02/24/20 05:00 02/24/20 04:30 02/24/20 04:00 02/24/20 03:30 02/24/20 03:00 02/24/20 02:30 02/24/20 02:00 02/24/20 01:30 02/24/20 01:00 02/24/20 00:30 02/24/20 00:00 02/23/20 23:53 02/23/20 23:30 02/23/20 23:26 02/23/20 23:00 02/23/20 22:31 02/23/20 22:00 02/23/20 21:31 02/23/20 21:01 02/23/20 20:31 02/23/20 20:18 97 02/23/20 20:01 02/23/20 20:00 02/23/20 19:30 02/23/20 19:01 02/23/20 18:31 02/23/20 18:00 02/23/20 17:35 99 02/23/20 17:31 02/23/20 17:03 02/23/20 17:01 02/23/20 16:55 02/23/20 16:30 02/23/20 16:01 02/23/20 16:00 02/23/20 15:30 02/23/20 15:00 02/23/20 14:31 02/23/20 14:01 02/23/20 13:30 02/23/20 13:00 02/23/20 12:31 02/23/20 12:19 02/23/20 12:01 02/23/20 12:00 - Physical Examination General: Other (s/p trach) HEENT: Positive: PERRL Neck: Positive: neck supple Cardiac: Positive: irregularly irregular Neuro: Positive: Weakness Abdomen: Positive: Soft Skin: Positive: Clear Extremities: Absent: edema - Allied health notes Allied health notes reviewed: nursing
--- NOTE | 2020-02-24 13:15 | Progress Note ---
Assessment and Plan Assessment and plan: --Ischemic cardiomyopathy Cardiology is following, status post cardiac catheterization on 01/22/2020; C oronary artery disease status post PCI and stent to the LAD Continue current cardiac medications --Acute on chronic hypoxemic respiratory failure; Patient has tracheostomy on vent Continue nebulizers, , trach care Wean off ventilator as tolerated Pulmonary critical following --Acute exacerbation of COPD; Patient is currently on ventilatory support Continue nebulizers --Left lower lobe PE; Continue Eliquis, ventilatory support --Acute right lower extremity DVT; Patient is on Eliquis --Bilateral multifocal pneumonia/community-acquired Completed antibiotics, improved --Severe sepsis/bilateral pneumonia: Completed antibiotics COVID-19 test; 11/24/2019; negative 11/26/2019; negative 12/29/2019: Negative --Paroxysmal atrial fibrillation; Now rate controlled, Stable on amiodarone and Eliquis --Acute on chronic combined systolic and diastolic congestive heart failure Ischemic cardiomyopathy left ventricular ejection fraction 40 to 45% --H/o CAD [[facility] 12/2018 in-stent restenosis] Patient is stable on current cardiac medications --Hypertensive emergency; present on admission Reasonable blood pressures, continue current antihypertensives As needed medications --History of alcohol abuse/alcohol withdrawal; Was on CIWA protocol, now stable --Oropharyngeal dysphagia; status post PEG placement Continue PEG feeds per protocol --History of partial small bowel obstruction; resolved Surgery evaluated. --Obesity; BMI 34.7 Patient needs weight reduction when medically stable --Severe protein calorie malnutrition/hypoalbuminemia Nutrition supplements, dietitian following, PEG feeds --DVT prophylaxis;Eliquis --Full CODE STATUS 01/05; Pt stable. NGT output 650cc over 24 hours, bilious. No f/c, WBC within normal limits. cont NG suction and cont to hold TF 01/06: Abs series - mild improvement in small bowel distension in mid abdomen, normal gas/stool pattern in colon. NGT in duodenum. Continue to hold tube feeding, maintain NG tube with low intermittent suction. Patient's was updated by phone. Continue to provide supportive care and monitor clinically. 01/07: +BMs today and NGT/PEG output appears more gastric today. Plan to clamp NGT, if tolerates start TF from tomorrow. cont supportive care. 01/08; Gastric output decreased over last 24 hours. NGT has been clamped x 24 hours. plan to dc NGT and to start TTF via PEG - vital HF @10cc/hr 01/09: clinically stable, tolerating TF. monitor BMP, wean off from vent as tolerated clinically stable, on TF. wean off vent as tolerated 01/11: wean off from vent, cont to monitor, on TF 01/12: wean off from vent, cont to monitor, on TF. need placement - unfunded 01/13; remains on ventilatory support, unable to wean, DC planning possible LTAC, unfunded 01/14; patient of ventilatory support, T-piece tracheostomy on oxygen, LTAC placement per case management 01/16; tracheostomy, patient on full ventilatory support, wean off vent support as tolerated, pending LTAC placement, social financial issues 01/17; awaiting LTAC placement, insurance and financial issues 01/18; patient tracheostomy remains on ventilatory support 01/19; wean off ventilator as tolerated 01/20; remains on ventilatory support, patient complains of intermittent chest pain, cardiology recommend left heart catheterization tomorrow 01/22/2020. Patient for left heart catheterization per cardiology. Patient remains on AC mode ventilation rate 12, tidal volume 450, FiO2 30% and PEEP of 6. Continue tracheostomy care, airway management and secretion control. 01/23/2020. Cardiac catheterization completed yesterday revealed widely patent previous LAD stent with mild nonobstructive atherosclerosis of the right mid coronary artery and rest of the coronary system was without significant atherosclerosis. The left ventricle ejection fraction was mildly impaired at 40 to 45%. There was some hypokinesis of the basal inferior wall suggestive of previous or recent infarct. Continue GDMT for coronary artery disease including beta blockers, topical nitrates, statin and Plavix. Continue Eliquis for paroxysmal atrial fibrillation and PE. Continue diuresis with Lasix and follow electrolytes closely. Continue Robinul and scopolamine for secretion control and daily SBT per pulmonary. Also, continue bronchodilators and routine trach care/airway management. T-piece trials per pulmonary as tolerated. 01/24/2020. Recent cardiac catheterization has documented widely patent left anterior descending artery stent with minimal nonobstructive diffuse coronary artery disease in the rest of the coronary arteries. Evidence of ischemic cardiomyopathy with inferior wall hypokinesis. Continue with guideline directed medical therapy. Continue Robinul and scopolamine for secretion control and daily SBT per pulmonary. Continue bronchodilators and routine trach care/airway management. T-piece trials per pulmonary as tolerated. 01/25/2020. Continue with guideline directed medical therapy for systolic heart failure. Cardiac catheterization revealed evidence of ischemic cardiomyopathy with inferior wall hypokinesis (EF 40-45%). Patient currently on T-piece with oxygen 10 L/min FiO2 40%. Continue Robinul and scopolamine for secretion control. Continue bronchodilators and routine trach care/airway management. 02/03: Mental status more improved, agree with Reglan will change to IV scheduled for two days, no new vomiting. Pseudomonas A in Sputum. 02/04: Clinical improving, amiodarone discontinued due to LFTs, continue Metoprolol.d/w GI, started on Golytely to clear impaction. Started on dialy Miralax. 02/05: Continue supportive care. Noted bowel movement, continue bowel regimen 02/06: Cardiology input noted beta-hebert increased for better suppression of atrial fibrillation. Continue to monitor, no other evidence of nausea vomiting noted. Discussed with respiratory therapist will be continued on weaning protocol with pressure support today. 02/07: Patient successfully weaned off the ventilator, No new complaints, continue monitoring, BM noted, Discussed with pulmonary, 02/08; tracheostomy on T-piece, patient is more alert and awake today 02/09; clinically no change, tracheostomy on vent 02/10; tracheostomy on vent, full CODE STATUS, poor prognosis, 02/11; clinically no change, remains on ventilatory support, full CODE STATUS, discussed with spouse Ms. Paulette Araiza extensively today 02/12. Patient resting comfortably no change on vent with tracheostomy. Still unable to wean. Some increased crackles today. 02/13: Still unable to wean from the vent. Overall prognosis remains extremely poor. 02/14; remains critically ill, tracheostomy on vent, unable to wean, poor prognosis, full CODE STATUS 02/15; patient is more alert and awake today, chronic tracheostomy on T-piece, continue current management DC planning per case management. Disposition very difficult due to lack of resources and insurance 02/17/2020. Patient remains on mechanical ventilation and tolerating PSV trials. Patient currently with PSV 10/6 at FiO2 of 30%. 02/18/2020. Patient currently on PSV 10/6 with FiO2 of 40%. 40% T-piece trial was attempted but patient unable to tolerate due to saturations dropping into the 80s and heart rate in the 140s. Therefore, patient placed back on PSV. Continue anticoagulation with Eliquis. Continue secretion control with Robinul and scopolamine. Continue rate control with metoprolol and digoxin. 02/19/2020. Patient currently on PSV 10/6 with FiO2 of 30%. T-piece trial attempted yesterday but patient did not tolerate. Continue T-piece trials as tolerated. Continue anticoagulation with Eliquis. Continue secretion control with Robinul and scopolamine. Continue rate control with metoprolol and digoxin. Continue to follow with case management with regards to discharge p lizette. 02/20/2020. Patient continues to tolerate PSV 10/6. Continue rate control with metoprolol and digoxin. Amiodarone discontinued due to elevated liver transaminases. Eliquis for anticoagulation acute PE/DVT. 02/21/2020. Patient continues to tolerate PSV 10/6 at FiO2 of 30%. Continue r ate control with metoprolol and digoxin. Amiodarone discontinued due to elevated liver transaminases. Eliquis for anticoagulation acute PE/DVT. 02/22/2020. Patient continues to tolerate PSV 10/6 at FiO2 of 30%. Continue rate control with metoprolol and digoxin. Amiodarone discontinued due to e levated liver transaminases. Eliquis for anticoagulation acute PE/DVT. 02/22. Awake and alert on vent. Vitals stable. 02/23. Awake and alert on vent. Requests for ice. Vitals stable The high probability of a clinically significant, sudden or life threatening deterioration of the [Respiratory, cardiovascular & neurological] system(s) required my full and direct attention, intervention and personal management. The aggregate critical care time was [32] minutes without overlap. Time includes spent on [x] Data Review and interpretation [x] Patient assessment and monitoring of vital signs [x] Documentation [x] Medication orders and management History Interval history: Patient seen and examined at bedside this morning. He has no complaints today. Vitals stable Hospitalist Physical - Physical exam Narrative exam: VITAL SIGNS: Reviewed. GENERAL: Awake on vent HEAD: No signs of head trauma. EYES: Pupils are equal. Extraocular motions intact. EARS: Hearing grossly intact. MOUTH: Oropharynx is normal. NECK: No adenopathy, no JVD. Trach in place CHEST: Chest with diminished breath sounds bilaterally. No wheezes, rales, or rhonchi. CARDIAC: Regular rate and rhythm. S1 and S2, without murmurs, gallops, or rubs. VASCULAR: +Edema. Peripheral pulses normal and equal in all extremities. ABDOMEN: Soft, non tender and non distended. No rebound or guarding, and no masses palpated. Bowel Sounds normal. MUSCULOSKELETAL: Good range of motion of all major joints. NEUROLOGIC EXAM: Alert and oriented x3. No focal neurologic deficits PSYCHIATRIC: Stable mood SKIN: No obvious lesions - Constitutional Vitals: Temp Pulse Resp BP Pulse Ox 97.0 F L 94 H 14 135/72 99 02/24/20 08:00 02/24/20 11:00 02/24/20 11:00 02/24/20 11:00 02/24/20 11:00 HEART Score - HEART Score Troponin: Troponin T < 0.010 ng/mL (0.00-0.029) 01/19/20 01:35 Results - Labs CBC & Chem 7: 02/22/20 08:06 02/22/20 08:06 Labs: Laboratory Last Values WBC 9.2 K/mm3 (4.5-11.0) 02/22/20 08:06 RBC 4.42 M/mm3 (3.65-5.03) 02/22/20 08:06 Hgb 10.8 gm/dl (11.8-15.2) L 02/22/20 08:06 Hct 35.2 % (35.5-45.6) L 02/22/20 08:06 MCV 80 fl (84-94) L 02/22/20 08:06 MCH 25 pg (28-32) L 02/22/20 08:06 MCHC 31 % (32-34) L 02/22/20 08:06 RDW 21.8 % (13.2-15.2) H 02/22/20 08:06 Plt Count 216 K/mm3 (140-440) 02/22/20 08:06 Lymph % (Auto) 19.0 % (13.4-35.0) 02/22/20 08:06 [place] % (Auto) 6.5 % (0.0-7.3) 02/22/20 08:06 Eos % (Auto) 2.1 % (0.0-4.3) 02/22/20 08:06 Baso % (Auto) 0.9 % (0.0-1.8) 02/22/20 08:06 Lymph # (Auto) 1.8 K/mm3 (1.2-5.4) 02/22/20 08:06 [place] # (Auto) 0.6 K/mm3 (0.0-0.8) 02/22/20 08:06 Eos # (Auto) 0.2 K/mm3 (0.0-0.4) 02/22/20 08:06 Baso # (Auto) 0.1 K/mm3 (0.0-0.1) 02/22/20 08:06 Add Manual Diff Complete 02/15/20 06:59 Total Counted 100 02/15/20 06:59 Seg Neutrophils % 71.5 % (40.0-70.0) H 02/22/20 08:06 Seg Neuts % (Manual) 58.0 % (40.0-70.0) 02/15/20 06:59 Band Neutrophils % 0 % 02/15/20 06:59 Lymphocytes % (Manual) 34.0 % (13.4-35.0) 02/15/20 06:59 Reactive Lymphs % (Man) 1.0 % 02/15/20 06:59 Monocytes % (Manual) 4.0 % (0.0-7.3) 02/15/20 06:59 Eosinophils % (Manual) 0 % (0.0-4.3) 02/15/20 06:59 Basophils % (Manual) 2.0 % (0.0-1.8) H 02/15/20 06:59 Metamyelocytes % 1.0 % 02/15/20 06:59 Myelocytes % 0 % 02/15/20 06:59 Promyelocytes % 0 % 02/15/20 06:59 Blast Cells % 0 % 02/15/20 06:59 Nucleated RBC % 1.0 % (0.0-0.9) H 02/15/20 06:59 Seg Neutrophils # 6.6 K/mm3 (1.8-7.7) 02/22/20 08:06 Seg Neutrophils # Man 5.9 K/mm3 (1.8-7.7) 02/15/20 06:59 Band Neutrophils # 0.0 K/mm3 02/15/20 06:59 Lymphocytes # (Manual) 3.5 K/mm3 (1.2-5.4) 02/15/20 06:59 Abs React Lymphs (Man) 0.1 K/mm3 02/15/20 06:59 Monocytes # (Manual) 0.4 K/mm3 (0.0-0.8) 02/15/20 06:59 Eosinophils # (Manual) 0.0 K/mm3 (0.0-0.4) 02/15/20 06:59 Basophils # (Manual) 0.2 K/mm3 (0.0-0.1) H 02/15/20 06:59 Metamyelocytes # 0.1 K/mm3 02/15/20 06:59 Myelocytes # 0.0 K/mm3 02/15/20 06:59 Promyelocytes # 0.0 K/mm3 02/15/20 06:59 Blast Cells # 0.0 K/mm3 02/15/20 06:59 WBC Morphology Not Reportable 02/15/20 06:59 Hypersegmented Neuts Not Reportable 02/15/20 06:59 Hyposegmented Neuts Not Reportable 02/15/20 06:59 Hypogranular Neuts Not Reportable 02/15/20 06:59 Smudge Cells Not Reportable 02/15/20 06:59 Toxic Granulation Not Reportable 02/15/20 06:59 Toxic Vacuolation Not Reportable 02/15/20 06:59 Dohle Bodies Not Reportable 02/15/20 06:59 Pelger-Huet Anomaly Not Reportable 02/15/20 06:59 Hector Rods Not Reportable 02/15/20 06:59 Platelet Estimate Consistent w auto 02/15/20 06:59 Clumped Platelets Not Reportable 02/15/20 06:59 Plt Clumps, EDTA Not Reportable 02/15/20 06:59 Large Platelets Not Reportable 02/15/20 06:59 Giant Platelets Not Reportable 02/15/20 06:59 Platelet Satelliting Not Reportable 02/15/20 06:59 Plt Morphology Comment Giant platelets 02/15/20 06:59 RBC Morphology Not Reportable 02/15/20 06:59 Dimorphic RBCs Not Reportable 02/15/20 06:59 Polychromasia Not Reportable 02/15/20 06:59 Hypochromasia 1+ 02/15/20 06:59 Poikilocytosis Few 02/15/20 06:59 Anisocytosis 1+ 02/15/20 06:59 Microcytosis Not Reportable 02/15/20 06:59 Macrocytosis Not Reportable 02/15/20 06:59 Spherocytes Not Reportable 02/15/20 06:59 Pappenheimer Bodies Not Reportable 02/15/20 06:59 Sickle Cells Not Reportable 02/15/20 06:59 Target Cells 1+ 02/15/20 06:59 Tear Drop Cells Few 02/15/20 06:59 Ovalocytes Not Reportable 02/15/20 06:59 Helmet Cells Not Reportable 02/15/20 06:59 [place] Bodies Not Reportable 02/15/20 06:59 [place] Rings Not Reportable 02/15/20 06:59 [place] Cells Not Reportable 02/15/20 06:59 Bite Cells Not Reportable 02/15/20 06:59 Crenated Cell Not Reportable 02/15/20 06:59 Elliptocytes Few 02/15/20 06:59 Acanthocytes (Spur) Not Reportable 02/15/20 06:59 Rouleaux Not Reportable 02/15/20 06:59 Hemoglobin C Crystals Not Reportable 02/15/20 06:59 Schistocytes Not Reportable 02/15/20 06:59 Malaria parasites Not Reportable 02/15/20 06:59 Clifford Bodies Not Reportable 02/15/20 06:59 Hem Pathologist Commnt No 02/15/20 06:59 PT 27.0 Sec. (12.2-14.9) H 02/07/20 15:03 INR 2.46 (0.87-1.13) H 02/07/20 15:03 APTT 31.5 Sec. (24.2-36.6) 01/22/20 09:58 Heparin Anti-Xa Level 1.34 U.I./ml (0.3-0.7) H 01/22/20 04:45 ABG pH 7.461 pH Units (7.350-7.450) H 02/20/20 06:45 POC ABG pCO2 34.8 mmHg (32.0-48.0) 02/11/20 14:11 ABG pCO2 47.8 mm Hg 02/20/20 06:45 POC ABG pO2 77.7 mmHg (83-108) L 02/11/20 14:11 ABG pO2 88.7 mm Hg (80.0-90.0) 02/20/20 06:45 POC ABG HCO3 26.7 02/11/20 14:11 ABG HCO3 33.3 mmol/L (20.0-26.0) H 02/20/20 06:45 ABG O2 Saturation 97.2 % (95.0-99.0) 02/20/20 06:45 ABG O2 Content 13.3 (0.0-44) 02/20/20 06:45 POC ABG Base Excess 3.6 02/11/20 14:11 ABG Base Excess 8.4 mmol/L (-2.0-3.0) H 02/20/20 06:45 ABG Hemoglobin 10.0 gm/dl (14.0-18.0) L 02/20/20 06:45 ABG Oxyhemoglobin 84 (94-98) L 12/22/19 03:22 ABG Carboxyhemoglobin 2.9 % (0.0-5.0) 02/20/20 06:45 ABG Methemoglobin 0.4 % (0.0-1.5) 02/20/20 06:45 ABG Sodium 144.7 mmol/L (136.0-145.0) 02/11/20 14:11 ABG Potassium 3.5 mmol/L (3.40-4.50) 02/11/20 14:11 ABG Chloride 108.0 mmol/L (98-107) H 02/11/20 14:11 ABG Glucose 151 mg/dL (65-95) H 02/11/20 14:11 Oxyhemoglobin 94.1 % (95.0-99.0) L 02/20/20 06:45 Carboxyhemoglobin 0.7 (0.5-1.5) 12/22/19 03:22 FiO2 30 % 02/20/20 06:45 Sodium 146 mmol/L (137-145) H 02/22/20 08:06 Potassium 3.7 mmol/L (3.6-5.0) 02/22/20 08:06 Chloride 106.1 mmol/L (98-107) 02/22/20 08:06 Carbon Dioxide 34 mmol/L (22-30) H 02/22/20 08:06 Anion Gap 10 mmol/L 02/22/20 08:06 BUN 21 mg/dL (9-20) H 02/22/20 08:06 Creatinine 0.4 mg/dL (0.8-1.3) L 02/22/20 08:06 Estimated GFR > 60 ml/min 02/22/20 08:06 BUN/Creatinine Ratio 53 % 02/22/20 08:06 Glucose 149 mg/dL (75-100) H 02/22/20 08:06 POC Glucose 126 mg/dL (70-105) H 02/24/20 11:24 Lactic Acid 1.60 mmol/L (0.7-2.0) 02/03/20 12:49 Calcium 9.5 mg/dL (8.4-10.2) 02/22/20 08:06 Ferritin 84.4 ng/mL (30.0-300.0) 11/24/19 04:53 Phosphorus 4.10 mg/dL (2.5-4.5) 01/31/20 19:24 Magnesium 2.40 mg/dL (1.7-2.3) H 02/10/20 07:40 Total Bilirubin 1.30 mg/dL (0.1-1.2) H 02/08/20 19:00 Direct Bilirubin 0.9 mg/dL (0-0.2) H 02/08/20 19:00 Indirect Bilirubin 0.4 mg/dL 02/08/20 19:00 Total Creatine Kinase 141 units/L (55-170) 11/24/19 02:53 CK-MB (CK-2) 4.3 ng/mL (0.0-4.0) H 11/24/19 02:53 AST 309 units/L (5-40) H 02/08/20 19:00 ALT 650 units/L (7-56) H 02/08/20 19:00 CK-MB (CK-2) Rel Index 3.0 (0-4) 11/24/19 02:53 Alkaline Phosphatase 109 units/L (35-129) 02/08/20 19:00 C-Reactive Protein 8.50 mg/dL (0.00-1.30) H 12/01/19 12:16 Ammonia 35.0 umol/L (25-60) 02/03/20 12:49 Lactate Dehydrogenase 228 units/L (91-180) H 12/19/19 04:45 Troponin T < 0.010 ng/mL (0.00-0.029) 01/19/20 01:35 NT-Pro-B Natriuret Pep 3866 pg/mL (0-900) H 01/01/20 10:40 Total Protein 6.2 g/dL (6.3-8.2) L 02/08/20 19:00 Albumin 2.7 g/dL (3.9-5) L 02/08/20 19:00 Albumin/Globulin Ratio 0.8 % 02/08/20 19:00 Procalcitonin 0.44 ng/mL (<0.15) 02/03/20 12:49 Arterial Blood Glucose 151 mg/dL (65-95) H 02/11/20 14:11 Arterial Blood Ionized Calcium 4.7 mg/dL (4.6-5.3) 02/11/20 14:11 Urine Color Cecy (Yellow) 12/31/19 18:04 Urine Turbidity Clear (Clear) 12/31/19 18:04 Urine pH 5.0 (5.0-7.0) 12/31/19 18:04 Ur Specific [place] 1.023 (1.003-1.030) 12/31/19 18:04 Urine Protein <15 mg/dl mg/dL (Negative) 12/31/19 18:04 Urine Glucose (UA) Neg mg/dL (Negative) 12/31/19 18:04 Urine Ketones Neg mg/dL (Negative) 12/31/19 18:04 Urine Blood Neg (Negative) 12/31/19 18:04 Urine Bacteria (Auto) 1+ /HPF (Negative) 12/03/19 06:03 Urine Nitrite Neg (Negative) 12/31/19 18:04 Urine Bilirubin Neg (Negative) 12/31/19 18:04 Urine Urobilinogen 4.0 mg/dL (<2.0) 12/31/19 18:04 Ur Leukocyte Esterase Neg (Negative) 12/31/19 18:04 Urine WBC (Auto) 2.0 /HPF (0.0-6.0) 12/31/19 18:04 Urine RBC (Auto) 3.0 /HPF (0.0-6.0) 12/31/19 18:04 U Epithel Cells (Auto) 2.0 /HPF (0-13.0) 12/31/19 18:04 Urine Mucus 1+ /HPF 12/31/19 18:04 Urine Creatinine 57.4 mg/dL (0.1-20.0) H 01/31/20 Unknown Urine Sodium 59 mmol/L 01/31/20 Unknown Vancomycin Trough 14.2 ug/mL (5.0-20.0) 12/13/19 15:01 Coronavirus (PCR) Negative (Negative) 12/29/19 10:07 Hepatitis A IgM Ab Non-reactive (NonReactive) 02/05/20 06:37 Hep Bs Antigen Non-reactive (Negative) 02/05/20 06:37 Hep B Core IgM Ab Non-reactive (NonReactive) 02/05/20 06:37 Hepatitis C Antibody Non-reactive (NonReactive) 02/05/20 06:37 Blood Type O POSITIVE 01/21/20 13:00 Antibody Screen Negative 01/21/20 13:00 - Diagnostic Impressions Diagnostic Impressions: Echocardiogram 11/29/19 07:37 Transthoracic Echocardiogram Indication: CHF BP: 116/72 HR: 33 Conclusions *The study is technically limited due to poor acoustic windows. *Global left ventricular systolic function is normal. *The estimated ejection fraction is 50-55%. *Mild concentric left ventricular hypertrophy is observed. *There is trace of mitral regurgitation. *There is mild tricuspid regurgitation. Findings Procedure Info: The study quality is poor. The study is technically limited due to poor acoustic windows. The study is technically limited due to patient body habitus. Left Ventricle: The left ventricular chamber size is normal. Mild concentric left ventricular hypertrophy is observed. Global left ventricular systolic function is normal. The estimated ejection fraction is 50-55%. Left Atrium: The left atrial chamber size is normal. Right Ventricle: The right ventricular cavity size is normal. Right Atrium: The right atrial cavity size is normal. Aortic Valve: The aortic valve leaflets are moderately thickened. There is trace of aortic regurgitation. There is no evidence of aortic stenosis. Mitral Valve: The mitral valve leaflets are mildly thickened. There is trace of mitral regurgitation. There is no evidence of mitral stenosis. Tricuspid Valve: There is mild tricuspid regurgitation. No pulmonary hypertension is noted. Pulmonic Valve: There is trace pulmonic regurgitation. Pericardium: There is no pericardial effusion. Aorta: There is no dilatation of the aortic root. Venous: The inferior vena cava appears normal in size. Contrast: Definity was used to optimize study. Intravenous contrast was used to enhance endocardial border definition. Measurements Chambers 2D Name Value Normal Range Ao root diameter (2D) 3.4 cm (2 - 3.7) Aortic Valve Name Value Normal Range AV Vmax 0.98 m/sec - AV VTI 16.76 cm - AV peak gradient 3.83 mmHg - AV mean gradient 2.57 mmHg - LVOT diameter 3.11 cm - LVOT Vmax 0.68 m/sec - LVOT VTI 11.52 cm - LVOT peak gradient 1.84 mmHg - LVOT mean gradient 1.27 mmHg - SV LVOT 87.31 ml - MALOU (continuity Vmax) 5.24 cm2 - MALOU (continuity VTI) 5.21 cm2 - Tricuspid Valve Name Value Normal Range IVC diameter 2.24 cm (1.2 - 2.3) Hoffman/IV: Voiding Method Indwelling Catheter IV Catheter Type [Left INT / Saline Lock Antecubital] IV Catheter Type [Right INT / Saline Lock Forearm] IV Catheter Type [Right Hand] Peripheral IV IV Catheter Type [Right Upper INT / Saline Lock arm] IV Catheter Type [Left Upper Mid-line arm] IV Catheter Type [Left Forearm INT / Saline Lock ] IV Catheter Type [Left Hand] Peripheral IV IV Catheter Type [Left Wrist] INT / Saline Lock IV Catheter Type [Right Peripheral IV Antecubital] Active Medications - Current Medications Current Medications: Generic Name Dose Route Start Last Admin Trade Name Freq PRN Reason Stop Dose Admin Acetaminophen 650 mg 12/31/19 11:43 02/19/20 17:01 Tylenol FEEDTUBE 650 mg Q6H PRN Administration Pain, Mild (1-3) Lipase/Protease/Amylase 1 each 01/09/20 12:01 Pancrepetr Bet[place] 10,500 Unit FEEDTUBE PRN PRN For Clogged Feeding Tube Apixaban 5 mg 01/22/20 22:00 02/24/20 10:25 Eliquis PO 5 mg Q12HR CAR Administration Protocol Atorvastatin Calcium 40 mg 01/20/20 22:00 02/23/20 21:06 Lipitor PO Not Given QHS CAR Clopidogrel Bisulfate 75 mg 01/21/20 06:00 02/24/20 10:26 Plavix PO 75 mg QDAY CAR Administration Dextrose 50 ml 01/31/20 18:51 02/05/20 00:56 D50w (25gm) Syringe IV 50 ml Q30MIN PRN Administration Hypoglycemia Protocol Digoxin 0.125 mg 02/10/20 17:00 02/23/20 17:03 Lanoxin IV 0.125 mg DAILY@1700 CAR Administration Docusate Sodium 100 mg 02/22/20 10:00 02/24/20 10:25 Colace FEEDTUBE 100 mg BID CAR Administration Glycopyrrolate 2 mg 02/20/20 20:00 02/24/20 08:28 Robinul PO 2 mg TID CAR Administration Haloperidol Lactate 5 mg 02/10/20 14:20 02/17/20 04:49 Haldol IV 5 mg Q6H PRN Administration Agitation Hydrophilic Ointment 1 applic 01/17/20 15:26 Vaseline Lip Therapy TP DIRECT PRN Dry Lips Insulin Human Regular 0 unit 02/01/20 18:00 02/24/20 11:46 Humulin R SUB-Q Not Given Q6H [facility] Protocol Lansoprazole 30 mg 02/05/20 16:00 02/24/20 10:25 Prevacid Solutab FEEDTUBE 30 mg QDAY CAR Administration Metoprolol Tartrate 5 mg 01/11/20 08:00 02/16/20 22:00 Metoprolol IV 5 mg Q6H PRN Administration SEE INSTRUCTIONS Midodrine 15 mg 02/04/20 16:00 02/24/20 11:46 Proamatine PO 15 mg TID@0800,1200,1600 [facility] Administration Morphine Sulfate 2 mg 01/06/20 15:41 02/23/20 10:11 Morphine IV 2 mg Q4H PRN Administration Pain, Moderate (4-6) Multi-Ingred Cream/Lotion/Oil/Oint 1 applic 02/01/20 15:52 Artificial Tears Ophth Oint OU Q4HR PRN Dry Eye(s) Nitroglycerin 0.4 mg 01/19/20 21:09 01/20/20 03:03 Nitrostat SL 0.4 mg .Q5MIN PRN Administration Chest Pain Ondansetron HCl 4 mg 01/05/20 14:37 02/16/20 17:25 Zofran IV 4 mg Q8H PRN Administration Nausea And Vomiting Polyethylene Glycol 17 gm 12/04/19 22:00 02/24/20 05:27 Miralax 3350 PO Not Given QHS CAR Quetiapine Fumarate 300 mg 01/13/20 22:00 02/24/20 10:25 Seroquel PO 300 mg BID CAR Administration Scopolamine 1 each 01/07/20 20:00 01/07/20 21:08 Transderm-Scop TD 1 each Q72HR CAR Administration Simple Syrup 15 ml 01/09/20 12:01 Simple Syrup FEEDTUBE PRN PRN Hypoglycemia Simple Syrup 30 ml 01/09/20 12:01 Simple Syrup FEEDTUBE PRN PRN Hypoglycemia Sodium Bicarbonate 325 mg 01/09/20 12:01 Sodium Bicarbonate FEEDTUBE PRN PRN For Clogged Feeding Tube Sodium Chloride 10 ml 11/24/19 10:00 02/24/20 10:26 Sodium Chloride Flush Syringe 10 Ml IV 10 ml BID CAR Administration Tamsulosin HCl 0.8 mg 12/20/19 22:00 02/24/20 05:27 Flomax PO Not Given QHS CAR Nutrition/Malnutrition Assess - Dietary Evaluation Nutrition/Malnutrition Findings: Nutrition Notes Start: 11/24/19 12:22 Freq: Status: Active Protocol: Document 02/19/20 09:28 LP (Rec: 02/19/20 09:30 LP [id number]) Nutrition Notes Initial or Follow up Reassessment Current Diagnosis Coronary Artery Disease,Heart Failure,Respiratory Failure, Stroke,Hyperlipidemia Other Pertinent Diagnosis Partial SBO, pneu Current Diet Vital AF 1.2 at 75ml/hr Labs/Tests Na 145 02/16/20 Pertinent Medications Reviewed Height 6 ft 2 in Weight 115.9 kg [place] Body Weight (kg) 86.36 BMI 32.8 Weight change and time frame Wt change noted. Weight Status Obese Subjective/Other Information Pt continues tolerating TF at goal. Na now WNL. Percent of energy/protein needs met: 99%/100% Burn Absent Trauma Absent GI Symptoms None Current % PO Negligible Minimum of two criteria Yes Muscle Mass Mild Depletion (non-severe) Fluid Accumulation Mild (non-severe) Reduced [employer] Strength Measurably Reduced (severe) #2 Nutrition Diagnosis Malnutrition Diagnosis Progress(for reassessment Continues documentation) #1 Nutrition Diagnosis Inadequate oral intake Diagnosis Progress(for reassessment Continues documentation) Is patient on ventilator? Yes Is Patient Ambulatory and/or Out of Bed No [facility] 2433.156 Kcal/Kg value to use for calculation 20 Approximate Energy Requirements Using 2318 kcal/Kg Calculation Used for Recommendations Kcal/kg Additional Notes Protein needs are 117-147g (1. 2-1.5 g/kg AdBW of 97.78kg) Fluid needs are 1.5L Nutrition Intervention Change Diet Order: Continue TF via PEG Nutrition Support: Vital AF 1.2 at 75ml/hr. increase Flush 250ml q4h for hypernatremia Flush 100ml q4h once hypernatremia is resolved Kcal 2,160 Protein (gm) 135 Fluid (mL) 1,460 Goal #1 Meet at least 75% of pt's energy and protein needs Goal #2 Weight maintenance Anticipated Discharge Needs: unable to determine at this time Follow-Up By: 02/26/20 Additional Comments Follow for stable TF
--- NOTE | 2020-02-24 14:28 | Progress Note ---
Assessment and Plan Acute hypoxemic respiratory failure Bilateral pneumonia, community acquired. Acute LLL branch P.E. Acute DVT Person under investigation for COVID-19 infection. Acute congestive heart failure exacerbation. History of cerebrovascular accident. Acute chronic obstructive pulmonary disease exacerbation. Hypertension and hypertensive urgency at presentation. History of arthritis. Leukocytosis. Lactic acidosis. Oropharyngeal dysphagia - resume daily SAT's and SBT assessment as tolerated - repeat CXR next 24-48 hours and address - continue to rest on AC qhs - continue Robinul & Scopolamine for secretion control - continue care as below otherwise; - rate control per cardiology team - continue prn haldol for agitation to avoid hypoventilation (stopped Lorazepam) - continue Flomax - antiinfective's per ID rec's - Midodrine for BP support - prn mucomyst nebs re: secretions - continue full anticoagulation with Apixaban - continue seroquel for anxiolysis / delirium - COVID isolation per facility protocol - prn diuresis while following electrolytes / I's & O's - continue to wean oxygen for O2 sat's > 92% - continue bronchodilators with routine trach care and pulmonary hygiene per RT - continue Robinul & Scopolamine for secretion control - VAP bundle addressed (Aspiration precautions, HOB >40) - continue to wean per pulmonary driven protocols - sedation target is RASS 0 to -1 - continue prn analgesia per CPOT score - follow clinically re: fever curves / trend WBC - Avoid delirium (no benzodiazepines if they can be avoided) - Maintain sleep-wake cycle - enteral nutrition at goal rate as tolerated - continue accucheck's with glycemic control per SSI for target blood glucose goal of 140-180 mg/dL while critically ill; Avoid hypoglycemia - for VTE he is on IV Heparin - continue stress ulcer prophylaxis with Famotidine - continue mobility protocols for pressure ulcer prophylaxis - continue fall precautions - continue wound care management per RN / WCT - Supportive transfusions to keep HgB>7g/dL - CXR's and ABG's prn - Continue to monitor neurologic function - Continue chronic home medications - Continue all supportive care ........ re-evaluate in am & prn CONDITION: CRITICAL PROGNOSIS: GUARDED CODE STATUS: FULL CODE The high probability of a clinically significant, sudden or life threatening d eterioration of the [Respiratory, cardiovascular & neurological] system(s) required my full and direct attention, intervention and personal management. The aggregate critical care time was [32] minutes without overlap. Time includes spent on [x] Data Review and interpretation [x] Patient assessment and monitoring of vital signs [x] Documentation [x] Medication orders and management Subjective Date of service: 02/24/20 Principal diagnosis: Ac hypoxemic resp failure; Pneumonia; PUI COVID-19; CHF; COPD; HTN Interval history: Patient is seen today for: Acute hypoxemic respiratory failure; [place]. Pneumonia (CAP); PUI COVID-19 infection; AE-CHF; AE-COPD; H/O CVA; HTN Seen and examined at bedside; 24 hour events reviewed; nursing and respiratory care staff consulted; no adverse overnight events reported to me; resting peacefully in bed; remains a difficult wean and on full support; No N/V/F/C Objective Vital Signs - 12hr 02/24/20 02/24/20 02/24/20 02:30 03:00 03:30 Temperature Pulse Rate 103 H 93 H 87 Pulse Rate [ From Monitor] Respiratory 21 18 19 Rate Blood Pressure 111/81 120/80 101/76 O2 Sat by Pulse 96 98 98 Oximetry O2 Sat by Pulse Oximetry [ Assessment] 02/24/20 02/24/20 02/24/20 04:00 04:30 05:00 Temperature 97.8 F Pulse Rate 99 H 115 H 106 H Pulse Rate [ 95 H From Monitor] Respiratory 18 15 20 Rate Blood Pressure 115/86 124/86 109/88 O2 Sat by Pulse 98 97 98 Oximetry O2 Sat by Pulse Oximetry [ Assessment] 02/24/20 02/24/20 02/24/20 05:30 06:00 06:30 Temperature Pulse Rate 92 H 100 H 117 H Pulse Rate [ From Monitor] Respiratory 17 20 20 Rate Blood Pressure 117/80 115/86 115/86 O2 Sat by Pulse 99 98 100 Oximetry O2 Sat by Pulse Oximetry [ Assessment] 02/24/20 02/24/20 02/24/20 07:00 07:30 08:00 Temperature 97.0 F L Pulse Rate 87 83 108 H Pulse Rate [ 108 H From Monitor] Respiratory 22 19 18 Rate Blood Pressure 115/79 114/63 114/92 O2 Sat by Pulse 99 99 98 Oximetry O2 Sat by Pulse Oximetry [ Assessment] 02/24/20 02/24/20 02/24/20 08:30 08:46 08:47 Temperature Pulse Rate 113 H 103 H Pulse Rate [ From Monitor] Respiratory 12 Rate Blood Pressure 114/92 103/80 O2 Sat by Pulse 100 100 Oximetry O2 Sat by Pulse 99 Oximetry [ Assessment] 02/24/20 02/24/20 02/24/20 08:58 09:00 09:30 Temperature Pulse Rate 108 H 104 H 102 H Pulse Rate [ From Monitor] Respiratory 19 18 20 Rate Blood Pressure 97/72 97/72 127/88 O2 Sat by Pulse 100 100 96 Oximetry O2 Sat by Pulse Oximetry [ Assessment] 02/24/20 02/24/20 02/24/20 10:00 10:30 11:00 Temperature Pulse Rate 104 H 109 H 94 H Pulse Rate [ From Monitor] Respiratory 18 22 14 Rate Blood Pressure 120/84 113/82 135/72 O2 Sat by Pulse 98 96 99 Oximetry O2 Sat by Pulse Oximetry [ Assessment] Constitutional: alert, other (elelelderly and obese male, normocephalic with mildly increased respiratory effort at rest) Eyes: non-icteric ENT: oropharynx moist, other (+ midline tracheostomy) Neck: supple, no JVD Effort: mildly labored Ascultation: Bilateral: diminished breath sounds, rhonchi Percussion: Bilateral: not dull Cardiovascular: irregular rhythm Gastrointestinal: normoactive bowel sounds, soft, non-tender, non-distended (pro tuberant), other (protuberant; PEG in place) Integumentary: normal Extremities: no cyanosis, pulses normal, no ischemia or petechiae, edema (bilateral lower) Neurologic: non-focal exam (moves extremities), pupils equal and round, other (intermittent agitation) Psychiatric: anxious CBC and BMP: 02/22/20 08:06 02/22/20 08:06 ABG, PT/INR, D-dimer: ABG ABG pH 7.461 pH Units (7.350-7.450) H 02/20/20 06:45 POC ABG pCO2 34.8 mmHg (32.0-48.0) 02/11/20 14:11 ABG pCO2 47.8 mm Hg 02/20/20 06:45 POC ABG pO2 77.7 mmHg (83-108) L 02/11/20 14:11 ABG pO2 88.7 mm Hg (80.0-90.0) 02/20/20 06:45 POC ABG HCO3 26.7 02/11/20 14:11 ABG O2 Saturation 97.2 % (95.0-99.0) 02/20/20 06:45 PT/INR, D-dimer PT 27.0 Sec. (12.2-14.9) H 02/07/20 15:03 INR 2.46 (0.87-1.13) H 02/07/20 15:03 Abnormal lab findings: Abnormal Labs 11/24/19 11/24/19 11/24/19 02:53 02:53 03:45 WBC 14.3 H RBC Hgb Hct MCHC RDW 17.2 H MCV MCH Lymph % (Auto) [place] % (Auto) [place] # Eos # Lymph # (Auto) [place] # (Auto) Eos # (Auto) Seg Neutrophils % Seg Neuts % (Manual) Baso # (Auto) Lymphocytes % (Manual) Monocytes % (Manual) Eosinophils % (Manual) Basophils % (Manual) Seg Neutrophils # Seg Neutrophils # Man 8.3 H Lymphocytes # (Manual) Monocytes # (Manual) 0.9 H Eosinophils # (Manual) Nucleated RBC % Basophils # (Manual) PT INR APTT Heparin Anti-Xa Level ABG pH 7.313 L POC ABG pO2 ABG pO2 102.8 H ABG HCO3 ABG O2 Saturation ABG Base Excess -2.9 L POC ABG pCO2 ABG Hemoglobin ABG Oxyhemoglobin ABG Chloride ABG Glucose Oxyhemoglobin 93.9 L Sodium Potassium Chloride Carbon Dioxide BUN Creatinine Glucose 195 H POC Glucose Lactic Acid Calcium Phosphorus Magnesium AST ALT Lactate Dehydrogenase Total Bilirubin Direct Bilirubin CK-MB (CK-2) 4.3 H C-Reactive Protein NT-Pro-B Natriuret Pep 1181 H Total Protein Albumin Arterial Blood Glucose Urine WBC (Auto) Urine Creatinine 11/24/19 11/24/19 11/24/19 04:53 04:53 10:37 WBC RBC Hgb Hct MCHC RDW MCV MCH Lymph % (Auto) [place] % (Auto) [place] # Eos # Lymph # (Auto) [place] # (Auto) Eos # (Auto) Seg Neutrophils % Seg Neuts % (Manual) Baso # (Auto) Lymphocytes % (Manual) Monocytes % (Manual) Eosinophils % (Manual) Basophils % (Manual) Seg Neutrophils # Seg Neutrophils # Man Lymphocytes # (Manual) Monocytes # (Manual) Eosinophils # (Manual) Nucleated RBC % Basophils # (Manual) PT INR APTT Heparin Anti-Xa Level ABG pH POC ABG pO2 ABG pO2 ABG HCO3 ABG O2 Saturation ABG Base Excess POC ABG pCO2 ABG Hemoglobin ABG Oxyhemoglobin ABG Chloride ABG Glucose Oxyhemoglobin Sodium Potassium Chloride Carbon Dioxide BUN Creatinine Glucose 162 H POC Glucose Lactic Acid 2.40 H* 2.50 H* Calcium Phosphorus Magnesium AST ALT Lactate Dehydrogenase 240 H Total Bilirubin Direct Bilirubin CK-MB (CK-2) C-Reactive Protein NT-Pro-B Natriuret Pep Total Protein Albumin Arterial Blood Glucose Urine WBC (Auto) Urine Creatinine 11/24/19 11/24/19 11/24/19 12:21 14:50 19:54 WBC RBC Hgb Hct MCHC RDW MCV MCH Lymph % (Auto) [place] % (Auto) [place] # Eos # Lymph # (Auto) [place] # (Auto) Eos # (Auto) Seg Neutrophils % Seg Neuts % (Manual) Baso # (Auto) Lymphocytes % (Manual) Monocytes % (Manual) Eosinophils % (Manual) Basophils % (Manual) Seg Neutrophils # Seg Neutrophils # Man Lymphocytes # (Manual) Monocytes # (Manual) Eosinophils # (Manual) Nucleated RBC % Basophils # (Manual) PT INR APTT Heparin Anti-Xa Level ABG pH POC ABG pO2 ABG pO2 ABG HCO3 ABG O2 Saturation ABG Base Excess POC ABG pCO2 ABG Hemoglobin ABG Oxyhemoglobin ABG Chloride ABG Glucose Oxyhemoglobin Sodium Potassium Chloride Carbon Dioxide BUN Creatinine Glucose POC Glucose 145 H 143 H 124 H Lactic Acid Calcium Phosphorus Magnesium AST ALT Lactate Dehydrogenase Total Bilirubin Direct Bilirubin CK-MB (CK-2) C-Reactive Protein NT-Pro-B Natriuret Pep Total Protein Albumin Arterial Blood Glucose Urine WBC (Auto) Urine Creatinine 11/25/19 11/25/19 11/25/19 00:18 03:18 05:11 WBC 13.7 H RBC Hgb Hct MCHC RDW 17.1 H MCV MCH Lymph % (Auto) 10.8 L [place] % (Auto) 8.7 H [place] # 1.2 H Eos # Lymph # (Auto) [place] # (Auto) Eos # (Auto) Seg Neutrophils % 80.2 H Seg Neuts % (Manual) Baso # (Auto) Lymphocytes % (Manual) Monocytes % (Manual) Eosinophils % (Manual) Basophils % (Manual) Seg Neutrophils # 11.0 H Seg Neutrophils # Man Lymphocytes # (Manual) Monocytes # (Manual) Eosinophils # (Manual) Nucleated RBC % Basophils # (Manual) PT INR APTT Heparin Anti-Xa Level ABG pH 7.333 L POC ABG pO2 ABG pO2 61.2 L ABG HCO3 ABG O2 Saturation 90.2 L ABG Base Excess POC ABG pCO2 ABG Hemoglobin 13.7 L ABG Oxyhemoglobin ABG Chloride ABG Glucose Oxyhemoglobin 88.2 L Sodium Potassium Chloride Carbon Dioxide BUN Creatinine Glucose POC Glucose 109 H Lactic Acid Calcium Phosphorus Magnesium AST ALT Lactate Dehydrogenase Total Bilirubin Direct Bilirubin CK-MB (CK-2) C-Reactive Protein NT-Pro-B Natriuret Pep Total Protein Albumin Arterial Blood Glucose Urine WBC (Auto) Urine Creatinine 11/25/19 11/25/19 11/26/19 05:11 11:40 03:12 WBC RBC Hgb Hct MCHC RDW MCV MCH Lymph % (Auto) [place] % (Auto) [place] # Eos # Lymph # (Auto) [place] # (Auto) Eos # (Auto) Seg Neutrophils % Seg Neuts % (Manual) Baso # (Auto) Lymphocytes % (Manual) Monocytes % (Manual) Eosinophils % (Manual) Basophils % (Manual) Seg Neutrophils # Seg Neutrophils # Man Lymphocytes # (Manual) Monocytes # (Manual) Eosinophils # (Manual) Nucleated RBC % Basophils # (Manual) PT INR APTT Heparin Anti-Xa Level ABG pH POC ABG pO2 ABG pO2 155.1 H ABG HCO3 27.8 H ABG O2 Saturation ABG Base Excess POC ABG pCO2 ABG Hemoglobin 12.2 L ABG Oxyhemoglobin ABG Chloride ABG Glucose Oxyhemoglobin Sodium Potassium Chloride Carbon Dioxide BUN 23 H Creatinine Glucose 110 H POC Glucose 108 H Lactic Acid Calcium Phosphorus Magnesium AST ALT Lactate Dehydrogenase Total Bilirubin Direct Bilirubin CK-MB (CK-2) C-Reactive Protein NT-Pro-B Natriuret Pep Total Protein Albumin Arterial Blood Glucose Urine WBC (Auto) Urine Creatinine 11/26/19 11/26/19 11/26/19 06:17 10:43 10:43 WBC 11.4 H RBC Hgb Hct MCHC RDW 17.1 H MCV MCH Lymph % (Auto) [place] % (Auto) [place] # Eos # Lymph # (Auto) [place] # (Auto) Eos # (Auto) Seg Neutrophils % Seg Neuts % (Manual) Baso # (Auto) Lymphocytes % (Manual) Monocytes % (Manual) Eosinophils % (Manual) Basophils % (Manual) Seg Neutrophils # Seg Neutrophils # Man Lymphocytes # (Manual) Monocytes # (Manual) Eosinophils # (Manual) Nucleated RBC % Basophils # (Manual) PT INR APTT Heparin Anti-Xa Level ABG pH POC ABG pO2 ABG pO2 ABG HCO3 ABG O2 Saturation ABG Base Excess POC ABG pCO2 ABG Hemoglobin ABG Oxyhemoglobin ABG Chloride ABG Glucose Oxyhemoglobin Sodium Potassium Chloride Carbon Dioxide BUN 29 H Creatinine Glucose POC Glucose 107 H Lactic Acid Calcium Phosphorus Magnesium AST ALT Lactate Dehydrogenase Total Bilirubin Direct Bilirubin CK-MB (CK-2) C-Reactive Protein NT-Pro-B Natriuret Pep Total Protein Albumin Arterial Blood Glucose Urine WBC (Auto) Urine Creatinine 11/26/19 11/27/19 11/27/19 17:11 01:53 04:11 WBC RBC Hgb Hct MCHC RDW MCV MCH Lymph % (Auto) [place] % (Auto) [place] # Eos # Lymph # (Auto) [place] # (Auto) Eos # (Auto) Seg Neutrophils % Seg Neuts % (Manual) Baso # (Auto) Lymphocytes % (Manual) Monocytes % (Manual) Eosinophils % (Manual) Basophils % (Manual) Seg Neutrophils # Seg Neutrophils # Man Lymphocytes # (Manual) Monocytes # (Manual) Eosinophils # (Manual) Nucleated RBC % Basophils # (Manual) PT INR APTT Heparin Anti-Xa Level ABG pH POC ABG pO2 ABG pO2 ABG HCO3 29.2 H ABG O2 Saturation ABG Base Excess 3.4 H POC ABG pCO2 ABG Hemoglobin 13.3 L ABG Oxyhemoglobin ABG Chloride ABG Glucose Oxyhemoglobin 94.5 L Sodium Potassium Chloride Carbon Dioxide BUN Creatinine Glucose POC Glucose 113 H 108 H Lactic Acid Calcium Phosphorus Magnesium AST ALT Lactate Dehydrogenase Total Bilirubin Direct Bilirubin CK-MB (CK-2) C-Reactive Protein NT-Pro-B Natriuret Pep Total Protein Albumin Arterial Blood Glucose Urine WBC (Auto) Urine Creatinine 11/27/19 11/28/19 11/28/19 05:27 05:00 05:25 WBC RBC Hgb Hct MCHC RDW MCV MCH Lymph % (Auto) [place] % (Auto) [place] # Eos # Lymph # (Auto) [place] # (Auto) Eos # (Auto) Seg Neutrophils % Seg Neuts % (Manual) Baso # (Auto) Lymphocytes % (Manual) Monocytes % (Manual) Eosinophils % (Manual) Basophils % (Manual) Seg Neutrophils # Seg Neutrophils # Man Lymphocytes # (Manual) Monocytes # (Manual) Eosinophils # (Manual) Nucleated RBC % Basophils # (Manual) PT INR APTT Heparin Anti-Xa Level ABG pH POC ABG pO2 68.1 L ABG pO2 ABG HCO3 ABG O2 Saturation ABG Base Excess POC ABG pCO2 ABG Hemoglobin ABG Oxyhemoglobin 91.2 L ABG Chloride ABG Glucose Oxyhemoglobin Sodium Potassium Chloride Carbon Dioxide BUN Creatinine Glucose POC Glucose 111 H 110 H Lactic Acid Calcium Phosphorus Magnesium AST ALT Lactate Dehydrogenase Total Bilirubin Direct Bilirubin CK-MB (CK-2) C-Reactive Protein NT-Pro-B Natriuret Pep Total Protein Albumin Arterial Blood Glucose Urine WBC (Auto) Urine Creatinine 11/28/19 11/28/19 11/28/19 12:08 13:47 13:47 WBC 11.3 H RBC Hgb Hct MCHC RDW 16.1 H MCV MCH Lymph % (Auto) [place] % (Auto) 9.9 H [place] # 1.1 H Eos # Lymph # (Auto) [place] # (Auto) Eos # (Auto) Seg Neutrophils % 71.4 H Seg Neuts % (Manual) Baso # (Auto) Lymphocytes % (Manual) Monocytes % (Manual) Eosinophils % (Manual) Basophils % (Manual) Seg Neutrophils # 8.1 H Seg Neutrophils # Man Lymphocytes # (Manual) Monocytes # (Manual) Eosinophils # (Manual) Nucleated RBC % Basophils # (Manual) PT INR APTT Heparin Anti-Xa Level ABG pH POC ABG pO2 ABG pO2 ABG HCO3 ABG O2 Saturation ABG Base Excess POC ABG pCO2 ABG Hemoglobin ABG Oxyhemoglobin ABG Chloride ABG Glucose Oxyhemoglobin Sodium Potassium Chloride Carbon Dioxide BUN 23 H Creatinine Glucose 123 H POC Glucose 112 H Lactic Acid Calcium Phosphorus Magnesium AST ALT Lactate Dehydrogenase Total Bilirubin Direct Bilirubin CK-MB (CK-2) C-Reactive Protein NT-Pro-B Natriuret Pep Total Protein Albumin 3.7 L Arterial Blood Glucose Urine WBC (Auto) Urine Creatinine 11/28/19 11/29/19 11/29/19 17:26 03:55 17:04 WBC RBC Hgb Hct MCHC RDW MCV MCH Lymph % (Auto) [place] % (Auto) [place] # Eos # Lymph # (Auto) [place] # (Auto) Eos # (Auto) Seg Neutrophils % Seg Neuts % (Manual) Baso # (Auto) Lymphocytes % (Manual) Monocytes % (Manual) Eosinophils % (Manual) Basophils % (Manual) Seg Neutrophils # Seg Neutrophils # Man Lymphocytes # (Manual) Monocytes # (Manual) Eosinophils # (Manual) Nucleated RBC % Basophils # (Manual) PT INR APTT Heparin Anti-Xa Level ABG pH POC ABG pO2 ABG pO2 65.7 L ABG HCO3 28.3 H ABG O2 Saturation 93.9 L ABG Base Excess 3.6 H POC ABG pCO2 ABG Hemoglobin 13.3 L ABG Oxyhemoglobin ABG Chloride ABG Glucose Oxyhemoglobin 91.5 L Sodium Potassium Chloride Carbon Dioxide BUN Creatinine Glucose POC Glucose 123 H 119 H Lactic Acid Calcium Phosphorus Magnesium AST ALT Lactate Dehydrogenase Total Bilirubin Direct Bilirubin CK-MB (CK-2) C-Reactive Protein NT-Pro-B Natriuret Pep Total Protein Albumin Arterial Blood Glucose Urine WBC (Auto) Urine Creatinine 11/30/19 11/30/19 11/30/19 04:17 04:17 04:56 WBC 13.4 H RBC Hgb Hct MCHC RDW 15.6 H MCV MCH Lymph % (Auto) [place] % (Auto) [place] # Eos # Lymph # (Auto) [place] # (Auto) Eos # (Auto) Seg Neutrophils % Seg Neuts % (Manual) Baso # (Auto) Lymphocytes % (Manual) Monocytes % (Manual) Eosinophils % (Manual) Basophils % (Manual) Seg Neutrophils # Seg Neutrophils # Man Lymphocytes # (Manual) Monocytes # (Manual) Eosinophils # (Manual) Nucleated RBC % Basophils # (Manual) PT INR APTT Heparin Anti-Xa Level ABG pH POC ABG pO2 ABG pO2 56.3 L ABG HCO3 29.3 H ABG O2 Saturation 91.5 L ABG Base Excess 4.7 H POC ABG pCO2 ABG Hemoglobin 12.1 L ABG Oxyhemoglobin ABG Chloride ABG Glucose Oxyhemoglobin 89.2 L Sodium 147 H Potassium Chloride Carbon Dioxide BUN 30 H Creatinine Glucose 124 H POC Glucose Lactic Acid Calcium Phosphorus Magnesium AST ALT Lactate Dehydrogenase Total Bilirubin Direct Bilirubin CK-MB (CK-2) C-Reactive Protein NT-Pro-B Natriuret Pep Total Protein Albumin 3.8 L Arterial Blood Glucose Urine WBC (Auto) Urine Creatinine 11/30/19 11/30/19 11/30/19 05:51 11:54 18:17 WBC RBC Hgb Hct MCHC RDW MCV MCH Lymph % (Auto) [place] % (Auto) [place] # Eos # Lymph # (Auto) [place] # (Auto) Eos # (Auto) Seg Neutrophils % Seg Neuts % (Manual) Baso # (Auto) Lymphocytes % (Manual) Monocytes % (Manual) Eosinophils % (Manual) Basophils % (Manual) Seg Neutrophils # Seg Neutrophils # Man Lymphocytes # (Manual) Monocytes # (Manual) Eosinophils # (Manual) Nucleated RBC % Basophils # (Manual) PT INR APTT Heparin Anti-Xa Level ABG pH POC ABG pO2 ABG pO2 ABG HCO3 ABG O2 Saturation ABG Base Excess POC ABG pCO2 ABG Hemoglobin ABG Oxyhemoglobin ABG Chloride ABG Glucose Oxyhemoglobin Sodium Potassium Chloride Carbon Dioxide BUN Creatinine Glucose POC Glucose 127 H 115 H 143 H Lactic Acid Calcium Phosphorus Magnesium AST ALT Lactate Dehydrogenase Total Bilirubin Direct Bilirubin CK-MB (CK-2) C-Reactive Protein NT-Pro-B Natriuret Pep Total Protein Albumin Arterial Blood Glucose Urine WBC (Auto) Urine Creatinine 12/01/19 12/01/19 12/01/19 01:18 05:22 12:16 WBC RBC Hgb Hct MCHC RDW MCV MCH Lymph % (Auto) [place] % (Auto) [place] # Eos # Lymph # (Auto) [place] # (Auto) Eos # (Auto) Seg Neutrophils % Seg Neuts % (Manual) Baso # (Auto) Lymphocytes % (Manual) Monocytes % (Manual) Eosinophils % (Manual) Basophils % (Manual) Seg Neutrophils # Seg Neutrophils # Man Lymphocytes # (Manual) Monocytes # (Manual) Eosinophils # (Manual) Nucleated RBC % Basophils # (Manual) PT INR APTT Heparin Anti-Xa Level ABG pH POC ABG pO2 ABG pO2 ABG HCO3 ABG O2 Saturation ABG Base Excess POC ABG pCO2 ABG Hemoglobin ABG Oxyhemoglobin ABG Chloride ABG Glucose Oxyhemoglobin Sodium Potassium 3.5 L Chloride 107.8 H Carbon Dioxide BUN 37 H Creatinine Glucose 157 H POC Glucose 118 H 148 H Lactic Acid Calcium 8.2 L D Phosphorus Magnesium AST 48 H ALT 60 H Lactate Dehydrogenase 194 H Total Bilirubin Direct Bilirubin CK-MB (CK-2) C-Reactive Protein 8.50 H NT-Pro-B Natriuret Pep Total Protein 5.5 L Albumin 2.8 L Arterial Blood Glucose Urine WBC (Auto) Urine Creatinine 12/01/19 12/02/19 12/02/19 18:04 00:05 05:16 WBC 11.4 H RBC Hgb Hct MCHC RDW 15.9 H MCV MCH Lymph % (Auto) [place] % (Auto) 9.9 H [place] # 1.1 H Eos # Lymph # (Auto) [place] # (Auto) Eos # (Auto) Seg Neutrophils % 70.3 H Seg Neuts % (Manual) Baso # (Auto) Lymphocytes % (Manual) Monocytes % (Manual) Eosinophils % (Manual) Basophils % (Manual) Seg Neutrophils # 8.0 H Seg Neutrophils # Man Lymphocytes # (Manual) Monocytes # (Manual) Eosinophils # (Manual) Nucleated RBC % Basophils # (Manual) PT INR APTT Heparin Anti-Xa Level ABG pH POC ABG pO2 ABG pO2 ABG HCO3 ABG O2 Saturation ABG Base Excess POC ABG pCO2 ABG Hemoglobin ABG Oxyhemoglobin ABG Chloride ABG Glucose Oxyhemoglobin Sodium Potassium Chloride Carbon Dioxide BUN Creatinine Glucose POC Glucose 143 H 107 H Lactic Acid Calcium Phosphorus Magnesium AST ALT Lactate Dehydrogenase Total Bilirubin Direct Bilirubin CK-MB (CK-2) C-Reactive Protein NT-Pro-B Natriuret Pep Total Protein Albumin Arterial Blood Glucose Urine WBC (Auto) Urine Creatinine 12/02/19 12/02/19 12/02/19 05:16 06:03 11:52 WBC RBC Hgb Hct MCHC RDW MCV MCH Lymph % (Auto) [place] % (Auto) [place] # Eos # Lymph # (Auto) [place] # (Auto) Eos # (Auto) Seg Neutrophils % Seg Neuts % (Manual) Baso # (Auto) Lymphocytes % (Manual) Monocytes % (Manual) Eosinophils % (Manual) Basophils % (Manual) Seg Neutrophils # Seg Neutrophils # Man Lymphocytes # (Manual) Monocytes # (Manual) Eosinophils # (Manual) Nucleated RBC % Basophils # (Manual) PT INR APTT Heparin Anti-Xa Level ABG pH POC ABG pO2 ABG pO2 ABG HCO3 ABG O2 Saturation ABG Base Excess POC ABG pCO2 ABG Hemoglobin ABG Oxyhemoglobin ABG Chloride ABG Glucose Oxyhemoglobin Sodium 146 H Potassium Chloride Carbon Dioxide BUN 28 H Creatinine Glucose 123 H POC Glucose 110 H 152 H Lactic Acid Calcium Phosphorus Magnesium AST ALT Lactate Dehydrogenase Total Bilirubin Direct Bilirubin CK-MB (CK-2) C-Reactive Protein NT-Pro-B Natriuret Pep Total Protein Albumin Arterial Blood Glucose Urine WBC (Auto) Urine Creatinine 12/02/19 12/02/19 12/02/19 12:58 17:58 23:36 WBC RBC Hgb Hct MCHC RDW MCV MCH Lymph % (Auto) [place] % (Auto) [place] # Eos # Lymph # (Auto) [place] # (Auto) Eos # (Auto) Seg Neutrophils % Seg Neuts % (Manual) Baso # (Auto) Lymphocytes % (Manual) Monocytes % (Manual) Eosinophils % (Manual) Basophils % (Manual) Seg Neutrophils # Seg Neutrophils # Man Lymphocytes # (Manual) Monocytes # (Manual) Eosinophils # (Manual) Nucleated RBC % Basophils # (Manual) PT INR APTT Heparin Anti-Xa Level ABG pH POC ABG pO2 78.1 L ABG pO2 ABG HCO3 ABG O2 Saturation ABG Base Excess POC ABG pCO2 ABG Hemoglobin ABG Oxyhemoglobin ABG Chloride ABG Glucose Oxyhemoglobin Sodium Potassium Chloride Carbon Dioxide BUN Creatinine Glucose POC Glucose 120 H 123 H Lactic Acid Calcium Phosphorus Magnesium AST ALT Lactate Dehydrogenase Total Bilirubin Direct Bilirubin CK-MB (CK-2) C-Reactive Protein NT-Pro-B Natriuret Pep Total Protein Albumin Arterial Blood Glucose Urine WBC (Auto) Urine Creatinine 12/03/19 12/03/19 12/03/19 06:03 06:14 11:46 WBC RBC Hgb Hct MCHC RDW MCV MCH Lymph % (Auto) [place] % (Auto) [place] # Eos # Lymph # (Auto) [place] # (Auto) Eos # (Auto) Seg Neutrophils % Seg Neuts % (Manual) Baso # (Auto) Lymphocytes % (Manual) Monocytes % (Manual) Eosinophils % (Manual) Basophils % (Manual) Seg Neutrophils # Seg Neutrophils # Man Lymphocytes # (Manual) Monocytes # (Manual) Eosinophils # (Manual) Nucleated RBC % Basophils # (Manual) PT INR APTT Heparin Anti-Xa Level ABG pH POC ABG pO2 ABG pO2 ABG HCO3 ABG O2 Saturation ABG Base Excess POC ABG pCO2 ABG Hemoglobin ABG Oxyhemoglobin ABG Chloride ABG Glucose Oxyhemoglobin Sodium Potassium Chloride Carbon Dioxide BUN Creatinine Glucose POC Glucose 142 H 130 H Lactic Acid Calcium Phosphorus Magnesium AST ALT Lactate Dehydrogenase Total Bilirubin Direct Bilirubin CK-MB (CK-2) C-Reactive Protein NT-Pro-B Natriuret Pep Total Protein Albumin Arterial Blood Glucose Urine WBC (Auto) 8.0 H Urine Creatinine 12/03/19 12/03/19 12/04/19 15:50 17:39 00:04 WBC RBC Hgb Hct MCHC RDW MCV MCH Lymph % (Auto) [place] % (Auto) [place] # Eos # Lymph # (Auto) [place] # (Auto) Eos # (Auto) Seg Neutrophils % Seg Neuts % (Manual) Baso # (Auto) Lymphocytes % (Manual) Monocytes % (Manual) Eosinophils % (Manual) Basophils % (Manual) Seg Neutrophils # Seg Neutrophils # Man Lymphocytes # (Manual) Monocytes # (Manual) Eosinophils # (Manual) Nucleated RBC % Basophils # (Manual) PT INR APTT Heparin Anti-Xa Level ABG pH POC ABG pO2 ABG pO2 ABG HCO3 ABG O2 Saturation ABG Base Excess POC ABG pCO2 ABG Hemoglobin ABG Oxyhemoglobin ABG Chloride ABG Glucose Oxyhemoglobin Sodium Potassium Chloride Carbon Dioxide BUN Creatinine Glucose POC Glucose 146 H 133 H Lactic Acid Calcium Phosphorus 2.40 L Magnesium AST ALT Lactate Dehydrogenase Total Bilirubin Direct Bilirubin CK-MB (CK-2) C-Reactive Protein NT-Pro-B Natriuret Pep Total Protein Albumin Arterial Blood Glucose Urine WBC (Auto) Urine Creatinine 12/04/19 12/04/19 12/04/19 03:58 03:58 05:22 WBC 12.5 H RBC Hgb 11.2 L Hct 35.2 L MCHC RDW 16.0 H MCV MCH Lymph % (Auto) [place] % (Auto) 9.6 H [place] # 1.2 H Eos # 0.5 H Lymph # (Auto) [place] # (Auto) Eos # (Auto) Seg Neutrophils % Seg Neuts % (Manual) Baso # (Auto) Lymphocytes % (Manual) Monocytes % (Manual) Eosinophils % (Manual) Basophils % (Manual) Seg Neutrophils # 8.6 H Seg Neutrophils # Man Lymphocytes # (Manual) Monocytes # (Manual) Eosinophils # (Manual) Nucleated RBC % Basophils # (Manual) PT INR APTT Heparin Anti-Xa Level ABG pH POC ABG pO2 ABG pO2 ABG HCO3 ABG O2 Saturation ABG Base Excess POC ABG pCO2 ABG Hemoglobin ABG Oxyhemoglobin ABG Chloride ABG Glucose Oxyhemoglobin Sodium 146 H Potassium Chloride 108.6 H Carbon Dioxide BUN 30 H Creatinine 0.7 L Glucose 121 H POC Glucose 132 H Lactic Acid Calcium Phosphorus Magnesium AST ALT Lactate Dehydrogenase Total Bilirubin Direct Bilirubin CK-MB (CK-2) C-Reactive Protein NT-Pro-B Natriuret Pep Total Protein Albumin Arterial Blood Glucose Urine WBC (Auto) Urine Creatinine 12/04/19 12/04/19 12/05/19 13:26 18:43 00:19 WBC RBC Hgb Hct MCHC RDW MCV MCH Lymph % (Auto) [place] % (Auto) [place] # Eos # Lymph # (Auto) [place] # (Auto) Eos # (Auto) Seg Neutrophils % Seg Neuts % (Manual) Baso # (Auto) Lymphocytes % (Manual) Monocytes % (Manual) Eosinophils % (Manual) Basophils % (Manual) Seg Neutrophils # Seg Neutrophils # Man Lymphocytes # (Manual) Monocytes # (Manual) Eosinophils # (Manual) Nucleated RBC % Basophils # (Manual) PT INR APTT Heparin Anti-Xa Level ABG pH POC ABG pO2 ABG pO2 ABG HCO3 ABG O2 Saturation ABG Base Excess POC ABG pCO2 ABG Hemoglobin ABG Oxyhemoglobin ABG Chloride ABG Glucose Oxyhemoglobin Sodium Potassium Chloride Carbon Dioxide BUN Creatinine Glucose POC Glucose 185 H 156 H 150 H Lactic Acid Calcium Phosphorus Magnesium AST ALT Lactate Dehydrogenase Total Bilirubin Direct Bilirubin CK-MB (CK-2) C-Reactive Protein NT-Pro-B Natriuret Pep Total Protein Albumin Arterial Blood Glucose Urine WBC (Auto) Urine Creatinine 12/05/19 12/05/19 12/05/19 03:37 03:37 05:14 WBC 16.3 H RBC Hgb 11.4 L Hct MCHC RDW 15.6 H MCV MCH Lymph % (Auto) 9.9 L [place] % (Auto) 9.7 H [place] # 1.6 H Eos # Lymph # (Auto) [place] # (Auto) Eos # (Auto) Seg Neutrophils % 78.0 H Seg Neuts % (Manual) Baso # (Auto) Lymphocytes % (Manual) Monocytes % (Manual) Eosinophils % (Manual) Basophils % (Manual) Seg Neutrophils # 12.7 H Seg Neutrophils # Man Lymphocytes # (Manual) Monocytes # (Manual) Eosinophils # (Manual) Nucleated RBC % Basophils # (Manual) PT INR APTT Heparin Anti-Xa Level ABG pH POC ABG pO2 ABG pO2 ABG HCO3 ABG O2 Saturation ABG Base Excess POC ABG pCO2 ABG Hemoglobin ABG Oxyhemoglobin ABG Chloride ABG Glucose Oxyhemoglobin Sodium 146 H Potassium Chloride 107.2 H Carbon Dioxide BUN 27 H Creatinine 0.7 L Glucose 171 H POC Glucose 168 H Lactic Acid Calcium Phosphorus Magnesium AST ALT Lactate Dehydrogenase Total Bilirubin Direct Bilirubin CK-MB (CK-2) C-Reactive Protein NT-Pro-B Natriuret Pep Total Protein Albumin Arterial Blood Glucose Urine WBC (Auto) Urine Creatinine 12/05/19 12/05/19 12/05/19 12:31 18:10 23:58 WBC RBC Hgb Hct MCHC RDW MCV MCH Lymph % (Auto) [place] % (Auto) [place] # Eos # Lymph # (Auto) [place] # (Auto) Eos # (Auto) Seg Neutrophils % Seg Neuts % (Manual) Baso # (Auto) Lymphocytes % (Manual) Monocytes % (Manual) Eosinophils % (Manual) Basophils % (Manual) Seg Neutrophils # Seg Neutrophils # Man Lymphocytes # (Manual) Monocytes # (Manual) Eosinophils # (Manual) Nucleated RBC % Basophils # (Manual) PT INR APTT Heparin Anti-Xa Level ABG pH POC ABG pO2 ABG pO2 ABG HCO3 ABG O2 Saturation ABG Base Excess POC ABG pCO2 ABG Hemoglobin ABG Oxyhemoglobin ABG Chloride ABG Glucose Oxyhemoglobin Sodium Potassium Chloride Carbon Dioxide BUN Creatinine Glucose POC Glucose 159 H 198 H 115 H Lactic Acid Calcium Phosphorus Magnesium AST ALT Lactate Dehydrogenase Total Bilirubin Direct Bilirubin CK-MB (CK-2) C-Reactive Protein NT-Pro-B Natriuret Pep Total Protein Albumin Arterial Blood Glucose Urine WBC (Auto) Urine Creatinine 12/06/19 12/06/19 12/06/19 05:24 05:24 05:25 WBC 14.9 H RBC Hgb 10.8 L Hct 34.0 L MCHC RDW 15.6 H MCV MCH Lymph % (Auto) 10.7 L [place] % (Auto) 8.3 H [place] # 1.2 H Eos # Lymph # (Auto) [place] # (Auto) Eos # (Auto) Seg Neutrophils % 78.7 H Seg Neuts % (Manual) Baso # (Auto) Lymphocytes % (Manual) Monocytes % (Manual) Eosinophils % (Manual) Basophils % (Manual) Seg Neutrophils # 11.7 H Seg Neutrophils # Man Lymphocytes # (Manual) Monocytes # (Manual) Eosinophils # (Manual) Nucleated RBC % Basophils # (Manual) PT INR APTT Heparin Anti-Xa Level ABG pH POC ABG pO2 ABG pO2 ABG HCO3 ABG O2 Saturation ABG Base Excess POC ABG pCO2 ABG Hemoglobin ABG Oxyhemoglobin ABG Chloride ABG Glucose Oxyhemoglobin Sodium 148 H Potassium 5.1 H Chloride 107.6 H Carbon Dioxide BUN 27 H Creatinine 0.7 L Glucose 155 H POC Glucose 157 H Lactic Acid Calcium Phosphorus Magnesium AST ALT Lactate Dehydrogenase Total Bilirubin Direct Bilirubin CK-MB (CK-2) C-Reactive Protein NT-Pro-B Natriuret Pep Total Protein Albumin Arterial Blood Glucose Urine WBC (Auto) Urine Creatinine 12/07/19 12/07/19 12/07/19 00:13 05:34 11:33 WBC RBC Hgb Hct MCHC RDW MCV MCH Lymph % (Auto) [place] % (Auto) [place] # Eos # Lymph # (Auto) [place] # (Auto) Eos # (Auto) Seg Neutrophils % Seg Neuts % (Manual) Baso # (Auto) Lymphocytes % (Manual) Monocytes % (Manual) Eosinophils % (Manual) Basophils % (Manual) Seg Neutrophils # Seg Neutrophils # Man Lymphocytes # (Manual) Monocytes # (Manual) Eosinophils # (Manual) Nucleated RBC % Basophils # (Manual) PT INR APTT Heparin Anti-Xa Level ABG pH POC ABG pO2 ABG pO2 ABG HCO3 ABG O2 Saturation ABG Base Excess POC ABG pCO2 ABG Hemoglobin ABG Oxyhemoglobin ABG Chloride ABG Glucose Oxyhemoglobin Sodium Potassium Chloride Carbon Dioxide BUN Creatinine Glucose POC Glucose 142 H 111 H 169 H Lactic Acid Calcium Phosphorus Magnesium AST ALT Lactate Dehydrogenase Total Bilirubin Direct Bilirubin CK-MB (CK-2) C-Reactive Protein NT-Pro-B Natriuret Pep Total Protein Albumin Arterial Blood Glucose Urine WBC (Auto) Urine Creatinine 12/07/19 12/07/19 12/07/19 12:41 13:25 18:19 WBC 12.4 H RBC 3.53 L Hgb 10.2 L Hct 32.1 L MCHC RDW 15.3 H MCV MCH Lymph % (Auto) 10.6 L [place] % (Auto) 7.8 H [place] # 1.0 H Eos # Lymph # (Auto) [place] # (Auto) Eos # (Auto) Seg Neutrophils % 77.6 H Seg Neuts % (Manual) Baso # (Auto) Lymphocytes % (Manual) Monocytes % (Manual) Eosinophils % (Manual) Basophils % (Manual) Seg Neutrophils # 9.6 H Seg Neutrophils # Man Lymphocytes # (Manual) Monocytes # (Manual) Eosinophils # (Manual) Nucleated RBC % Basophils # (Manual) PT INR APTT Heparin Anti-Xa Level ABG pH POC ABG pO2 ABG pO2 ABG HCO3 ABG O2 Saturation ABG Base Excess POC ABG pCO2 ABG Hemoglobin ABG Oxyhemoglobin ABG Chloride ABG Glucose Oxyhemoglobin Sodium 149 H Potassium Chloride 108.4 H Carbon Dioxide BUN 26 H Creatinine 0.6 L Glucose 149 H POC Glucose 164 H Lactic Acid Calcium Phosphorus Magnesium 2.60 H AST 121 H ALT 145 H Lactate Dehydrogenase Total Bilirubin Direct Bilirubin CK-MB (CK-2) C-Reactive Protein NT-Pro-B Natriuret Pep Total Protein Albumin 2.6 L Arterial Blood Glucose Urine WBC (Auto) Urine Creatinine 12/07/19 12/08/19 12/08/19 22:25 00:02 03:55 WBC 13.3 H RBC 3.40 L Hgb 9.7 L Hct 30.8 L MCHC 31 L RDW 15.5 H MCV MCH Lymph % (Auto) [place] % (Auto) 8.1 H [place] # 1.1 H Eos # Lymph # (Auto) [place] # (Auto) Eos # (Auto) Seg Neutrophils % 73.0 H Seg Neuts % (Manual) Baso # (Auto) Lymphocytes % (Manual) Monocytes % (Manual) Eosinophils % (Manual) Basophils % (Manual) Seg Neutrophils # 9.7 H Seg Neutrophils # Man Lymphocytes # (Manual) Monocytes # (Manual) Eosinophils # (Manual) Nucleated RBC % Basophils # (Manual) PT INR APTT Heparin Anti-Xa Level 0.12 L ABG pH POC ABG pO2 ABG pO2 ABG HCO3 ABG O2 Saturation ABG Base Excess POC ABG pCO2 ABG Hemoglobin ABG Oxyhemoglobin ABG Chloride ABG Glucose Oxyhemoglobin Sodium Potassium Chloride Carbon Dioxide BUN Creatinine Glucose POC Glucose 151 H Lactic Acid Calcium Phosphorus Magnesium AST ALT Lactate Dehydrogenase Total Bilirubin Direct Bilirubin CK-MB (CK-2) C-Reactive Protein NT-Pro-B Natriuret Pep Total Protein Albumin Arterial Blood Glucose Urine WBC (Auto) Urine Creatinine 12/08/19 12/08/19 12/08/19 03:55 05:21 06:01 WBC RBC Hgb Hct MCHC RDW MCV MCH Lymph % (Auto) [place] % (Auto) [place] # Eos # Lymph # (Auto) [place] # (Auto) Eos # (Auto) Seg Neutrophils % Seg Neuts % (Manual) Baso # (Auto) Lymphocytes % (Manual) Monocytes % (Manual) Eosinophils % (Manual) Basophils % (Manual) Seg Neutrophils # Seg Neutrophils # Man Lymphocytes # (Manual) Monocytes # (Manual) Eosinophils # (Manual) Nucleated RBC % Basophils # (Manual) PT INR APTT Heparin Anti-Xa Level 0.20 L ABG pH POC ABG pO2 ABG pO2 ABG HCO3 ABG O2 Saturation ABG Base Excess POC ABG pCO2 ABG Hemoglobin ABG Oxyhemoglobin ABG Chloride ABG Glucose Oxyhemoglobin Sodium 149 H Potassium Chloride 108.0 H Carbon Dioxide BUN 28 H Creatinine 0.6 L Glucose 144 H POC Glucose 143 H Lactic Acid Calcium Phosphorus Magnesium AST 98 H ALT 145 H Lactate Dehydrogenase Total Bilirubin Direct Bilirubin CK-MB (CK-2) C-Reactive Protein NT-Pro-B Natriuret Pep Total Protein 6.0 L Albumin 2.4 L Arterial Blood Glucose Urine WBC (Auto) Urine Creatinine 12/08/19 12/08/19 12/08/19 12:08 18:11 23:53 WBC RBC Hgb Hct MCHC RDW MCV MCH Lymph % (Auto) [place] % (Auto) [place] # Eos # Lymph # (Auto) [place] # (Auto) Eos # (Auto) Seg Neutrophils % Seg Neuts % (Manual) Baso # (Auto) Lymphocytes % (Manual) Monocytes % (Manual) Eosinophils % (Manual) Basophils % (Manual) Seg Neutrophils # Seg Neutrophils # Man Lymphocytes # (Manual) Monocytes # (Manual) Eosinophils # (Manual) Nucleated RBC % Basophils # (Manual) PT INR APTT Heparin Anti-Xa Level ABG pH POC ABG pO2 ABG pO2 ABG HCO3 ABG O2 Saturation ABG Base Excess POC ABG pCO2 ABG Hemoglobin ABG Oxyhemoglobin ABG Chloride ABG Glucose Oxyhemoglobin Sodium Potassium Chloride Carbon Dioxide BUN Creatinine Glucose POC Glucose 172 H 122 H 162 H Lactic Acid Calcium Phosphorus Magnesium AST ALT Lactate Dehydrogenase Total Bilirubin Direct Bilirubin CK-MB (CK-2) C-Reactive Protein NT-Pro-B Natriuret Pep Total Protein Albumin Arterial Blood Glucose Urine WBC (Auto) Urine Creatinine 12/09/19 12/09/19 12/09/19 04:03 04:03 05:53 WBC RBC Hgb 9.1 L Hct 28.9 L MCHC RDW MCV MCH Lymph % (Auto) [place] % (Auto) [place] # Eos # Lymph # (Auto) [place] # (Auto) Eos # (Auto) Seg Neutrophils % Seg Neuts % (Manual) Baso # (Auto) Lymphocytes % (Manual) Monocytes % (Manual) Eosinophils % (Manual) Basophils % (Manual) Seg Neutrophils # Seg Neutrophils # Man Lymphocytes # (Manual) Monocytes # (Manual) Eosinophils # (Manual) Nucleated RBC % Basophils # (Manual) PT INR APTT Heparin Anti-Xa Level 0.15 L ABG pH POC ABG pO2 ABG pO2 ABG HCO3 ABG O2 Saturation ABG Base Excess POC ABG pCO2 ABG Hemoglobin ABG Oxyhemoglobin ABG Chloride ABG Glucose Oxyhemoglobin Sodium Potassium Chloride Carbon Dioxide BUN Creatinine Glucose POC Glucose 124 H Lactic Acid Calcium Phosphorus Magnesium AST ALT Lactate Dehydrogenase Total Bilirubin Direct Bilirubin CK-MB (CK-2) C-Reactive Protein NT-Pro-B Natriuret Pep Total Protein Albumin Arterial Blood Glucose Urine WBC (Auto) Urine Creatinine 12/09/19 12/09/19 12/10/19 09:43 12:41 00:13 WBC RBC Hgb Hct MCHC RDW MCV MCH Lymph % (Auto) [place] % (Auto) [place] # Eos # Lymph # (Auto) [place] # (Auto) Eos # (Auto) Seg Neutrophils % Seg Neuts % (Manual) Baso # (Auto) Lymphocytes % (Manual) Monocytes % (Manual) Eosinophils % (Manual) Basophils % (Manual) Seg Neutrophils # Seg Neutrophils # Man Lymphocytes # (Manual) Monocytes # (Manual) Eosinophils # (Manual) Nucleated RBC % Basophils # (Manual) PT INR APTT Heparin Anti-Xa Level ABG pH POC ABG pO2 ABG pO2 ABG HCO3 ABG O2 Saturation ABG Base Excess POC ABG pCO2 ABG Hemoglobin ABG Oxyhemoglobin ABG Chloride ABG Glucose Oxyhemoglobin Sodium Potassium Chloride Carbon Dioxide BUN 25 H Creatinine 0.6 L Glucose 131 H POC Glucose 109 H 120 H Lactic Acid Calcium Phosphorus Magnesium AST ALT Lactate Dehydrogenase Total Bilirubin Direct Bilirubin CK-MB (CK-2) C-Reactive Protein NT-Pro-B Natriuret Pep Total Protein Albumin Arterial Blood Glucose Urine WBC (Auto) Urine Creatinine 12/10/19 12/10/19 12/10/19 04:14 04:14 12:00 WBC 13.3 H RBC 3.34 L Hgb 9.6 L Hct 30.4 L MCHC RDW 15.4 H MCV MCH Lymph % (Auto) [place] % (Auto) [place] # Eos # Lymph # (Auto) [place] # (Auto) Eos # (Auto) Seg Neutrophils % Seg Neuts % (Manual) 75.0 H Baso # (Auto) Lymphocytes % (Manual) 13.0 L Monocytes % (Manual) 8.0 H Eosinophils % (Manual) Basophils % (Manual) 2.0 H Seg Neutrophils # Seg Neutrophils # Man 10.0 H Lymphocytes # (Manual) Monocytes # (Manual) 1.1 H Eosinophils # (Manual) Nucleated RBC % Basophils # (Manual) 0.3 H PT INR APTT Heparin Anti-Xa Level ABG pH POC ABG pO2 ABG pO2 ABG HCO3 ABG O2 Saturation ABG Base Excess POC ABG pCO2 ABG Hemoglobin ABG Oxyhemoglobin ABG Chloride ABG Glucose Oxyhemoglobin Sodium 147 H Potassium Chloride 108.3 H Carbon Dioxide BUN 21 H Creatinine 0.6 L Glucose 104 H POC Glucose 133 H Lactic Acid Calcium Phosphorus Magnesium AST ALT Lactate Dehydrogenase Total Bilirubin Direct Bilirubin CK-MB (CK-2) C-Reactive Protein NT-Pro-B Natriuret Pep Total Protein Albumin Arterial Blood Glucose Urine WBC (Auto) Urine Creatinine 12/10/19 12/10/19 12/11/19 18:44 21:20 00:08 WBC 14.9 H RBC 3.36 L Hgb 9.6 L Hct 30.5 L MCHC RDW 15.4 H MCV MCH Lymph % (Auto) [place] % (Auto) [place] # Eos # Lymph # (Auto) [place] # (Auto) Eos # (Auto) Seg Neutrophils % Seg Neuts % (Manual) Baso # (Auto) Lymphocytes % (Manual) Monocytes % (Manual) Eosinophils % (Manual) Basophils % (Manual) Seg Neutrophils # Seg Neutrophils # Man Lymphocytes # (Manual) Monocytes # (Manual) Eosinophils # (Manual) Nucleated RBC % Basophils # (Manual) PT INR APTT Heparin Anti-Xa Level ABG pH POC ABG pO2 ABG pO2 ABG HCO3 ABG O2 Saturation ABG Base Excess POC ABG pCO2 ABG Hemoglobin ABG Oxyhemoglobin ABG Chloride ABG Glucose Oxyhemoglobin Sodium Potassium Chloride Carbon Dioxide BUN Creatinine Glucose POC Glucose 119 H 134 H Lactic Acid Calcium Phosphorus Magnesium AST ALT Lactate Dehydrogenase Total Bilirubin Direct Bilirubin CK-MB (CK-2) C-Reactive Protein NT-Pro-B Natriuret Pep Total Protein Albumin Arterial Blood Glucose Urine WBC (Auto) Urine Creatinine 12/11/19 12/11/19 12/11/19 03:54 07:28 08:36 WBC 11.9 H RBC 3.25 L Hgb 9.6 L Hct 29.2 L MCHC RDW 15.7 H MCV MCH Lymph % (Auto) [place] % (Auto) [place] # Eos # Lymph # (Auto) [place] # (Auto) Eos # (Auto) Seg Neutrophils % Seg Neuts % (Manual) Baso # (Auto) Lymphocytes % (Manual) Monocytes % (Manual) Eosinophils % (Manual) Basophils % (Manual) Seg Neutrophils # Seg Neutrophils # Man Lymphocytes # (Manual) Monocytes # (Manual) Eosinophils # (Manual) Nucleated RBC % Basophils # (Manual) PT INR APTT Heparin Anti-Xa Level 0.10 L 0.16 L ABG pH POC ABG pO2 ABG pO2 ABG HCO3 ABG O2 Saturation ABG Base Excess POC ABG pCO2 ABG Hemoglobin ABG Oxyhemoglobin ABG Chloride ABG Glucose Oxyhemoglobin Sodium Potassium Chloride Carbon Dioxide BUN Creatinine Glucose POC Glucose Lactic Acid Calcium Phosphorus Magnesium AST ALT Lactate Dehydrogenase Total Bilirubin Direct Bilirubin CK-MB (CK-2) C-Reactive Protein NT-Pro-B Natriuret Pep Total Protein Albumin Arterial Blood Glucose Urine WBC (Auto) Urine Creatinine 12/11/19 12/11/19 12/11/19 08:36 11:45 17:15 WBC RBC Hgb Hct MCHC RDW MCV MCH Lymph % (Auto) [place] % (Auto) [place] # Eos # Lymph # (Auto) [place] # (Auto) Eos # (Auto) Seg Neutrophils % Seg Neuts % (Manual) Baso # (Auto) Lymphocytes % (Manual) Monocytes % (Manual) Eosinophils % (Manual) Basophils % (Manual) Seg Neutrophils # Seg Neutrophils # Man Lymphocytes # (Manual) Monocytes # (Manual) Eosinophils # (Manual) Nucleated RBC % Basophils # (Manual) PT INR APTT Heparin Anti-Xa Level ABG pH POC ABG pO2 ABG pO2 ABG HCO3 ABG O2 Saturation ABG Base Excess POC ABG pCO2 ABG Hemoglobin ABG Oxyhemoglobin ABG Chloride ABG Glucose Oxyhemoglobin Sodium Potassium Chloride Carbon Dioxide BUN Creatinine 0.5 L Glucose 128 H POC Glucose 136 H 109 H Lactic Acid Calcium Phosphorus Magnesium AST ALT Lactate Dehydrogenase Total Bilirubin Direct Bilirubin CK-MB (CK-2) C-Reactive Protein NT-Pro-B Natriuret Pep Total Protein Albumin Arterial Blood Glucose Urine WBC (Auto) Urine Creatinine 12/12/19 12/12/19 12/12/19 00:03 05:53 05:53 WBC RBC Hgb 8.8 L Hct 27.6 L MCHC RDW MCV MCH Lymph % (Auto) [place] % (Auto) [place] # Eos # Lymph # (Auto) [place] # (Auto) Eos # (Auto) Seg Neutrophils % Seg Neuts % (Manual) Baso # (Auto) Lymphocytes % (Manual) Monocytes % (Manual) Eosinophils % (Manual) Basophils % (Manual) Seg Neutrophils # Seg Neutrophils # Man Lymphocytes # (Manual) Monocytes # (Manual) Eosinophils # (Manual) Nucleated RBC % Basophils # (Manual) PT INR APTT Heparin Anti-Xa Level 0.22 L ABG pH POC ABG pO2 ABG pO2 ABG HCO3 ABG O2 Saturation ABG Base Excess POC ABG pCO2 ABG Hemoglobin ABG Oxyhemoglobin ABG Chloride ABG Glucose Oxyhemoglobin Sodium Potassium Chloride Carbon Dioxide BUN Creatinine Glucose POC Glucose 116 H Lactic Acid Calcium Phosphorus Magnesium AST ALT Lactate Dehydrogenase Total Bilirubin Direct Bilirubin CK-MB (CK-2) C-Reactive Protein NT-Pro-B Natriuret Pep Total Protein Albumin Arterial Blood Glucose Urine WBC (Auto) Urine Creatinine 12/12/19 12/12/19 12/12/19 09:38 12:18 17:44 WBC RBC Hgb Hct MCHC RDW MCV MCH Lymph % (Auto) [place] % (Auto) [place] # Eos # Lymph # (Auto) [place] # (Auto) Eos # (Auto) Seg Neutrophils % Seg Neuts % (Manual) Baso # (Auto) Lymphocytes % (Manual) Monocytes % (Manual) Eosinophils % (Manual) Basophils % (Manual) Seg Neutrophils # Seg Neutrophils # Man Lymphocytes # (Manual) Monocytes # (Manual) Eosinophils # (Manual) Nucleated RBC % Basophils # (Manual) PT INR APTT Heparin Anti-Xa Level ABG pH POC ABG pO2 ABG pO2 ABG HCO3 ABG O2 Saturation ABG Base Excess POC ABG pCO2 ABG Hemoglobin ABG Oxyhemoglobin ABG Chloride ABG Glucose Oxyhemoglobin Sodium Potassium Chloride Carbon Dioxide BUN Creatinine Glucose POC Glucose 115 H 146 H 146 H Lactic Acid Calcium Phosphorus Magnesium AST ALT Lactate Dehydrogenase Total Bilirubin Direct Bilirubin CK-MB (CK-2) C-Reactive Protein NT-Pro-B Natriuret Pep Total Protein Albumin Arterial Blood Glucose Urine WBC (Auto) Urine Creatinine 12/12/19 12/13/19 12/13/19 23:33 05:32 05:32 WBC 13.1 H RBC 3.27 L Hgb 9.5 L Hct 29.3 L MCHC RDW 15.6 H MCV MCH Lymph % (Auto) [place] % (Auto) [place] # Eos # Lymph # (Auto) [place] # (Auto) Eos # (Auto) Seg Neutrophils % Seg Neuts % (Manual) 74.0 H Baso # (Auto) Lymphocytes % (Manual) 8.0 L Monocytes % (Manual) 9.0 H Eosinophils % (Manual) 5.0 H Basophils % (Manual) Seg Neutrophils # Seg Neutrophils # Man 9.7 H Lymphocytes # (Manual) 1.0 L Monocytes # (Manual) 1.2 H Eosinophils # (Manual) 0.7 H Nucleated RBC % Basophils # (Manual) PT INR APTT Heparin Anti-Xa Level 0.20 L ABG pH POC ABG pO2 ABG pO2 ABG HCO3 ABG O2 Saturation ABG Base Excess POC ABG pCO2 ABG Hemoglobin ABG Oxyhemoglobin ABG Chloride ABG Glucose Oxyhemoglobin Sodium Potassium Chloride Carbon Dioxide BUN Creatinine Glucose POC Glucose 126 H Lactic Acid Calcium Phosphorus Magnesium AST ALT Lactate Dehydrogenase Total Bilirubin Direct Bilirubin CK-MB (CK-2) C-Reactive Protein NT-Pro-B Natriuret Pep Total Protein Albumin Arterial Blood Glucose Urine WBC (Auto) Urine Creatinine 12/13/19 12/13/19 12/13/19 05:32 05:46 11:57 WBC RBC Hgb Hct MCHC RDW MCV MCH Lymph % (Auto) [place] % (Auto) [place] # Eos # Lymph # (Auto) [place] # (Auto) Eos # (Auto) Seg Neutrophils % Seg Neuts % (Manual) Baso # (Auto) Lymphocytes % (Manual) Monocytes % (Manual) Eosinophils % (Manual) Basophils % (Manual) Seg Neutrophils # Seg Neutrophils # Man Lymphocytes # (Manual) Monocytes # (Manual) Eosinophils # (Manual) Nucleated RBC % Basophils # (Manual) PT INR APTT Heparin Anti-Xa Level ABG pH POC ABG pO2 ABG pO2 ABG HCO3 ABG O2 Saturation ABG Base Excess POC ABG pCO2 ABG Hemoglobin ABG Oxyhemoglobin ABG Chloride ABG Glucose Oxyhemoglobin Sodium Potassium Chloride Carbon Dioxide 31 H BUN Creatinine 0.6 L Glucose 114 H POC Glucose 118 H 133 H Lactic Acid Calcium Phosphorus Magnesium AST ALT Lactate Dehydrogenase Total Bilirubin Direct Bilirubin CK-MB (CK-2) C-Reactive Protein NT-Pro-B Natriuret Pep Total Protein Albumin Arterial Blood Glucose Urine WBC (Auto) Urine Creatinine 12/13/19 12/13/19 12/14/19 17:44 23:46 05:32 WBC RBC Hgb Hct MCHC RDW MCV MCH Lymph % (Auto) [place] % (Auto) [place] # Eos # Lymph # (Auto) [place] # (Auto) Eos # (Auto) Seg Neutrophils % Seg Neuts % (Manual) Baso # (Auto) Lymphocytes % (Manual) Monocytes % (Manual) Eosinophils % (Manual) Basophils % (Manual) Seg Neutrophils # Seg Neutrophils # Man Lymphocytes # (Manual) Monocytes # (Manual) Eosinophils # (Manual) Nucleated RBC % Basophils # (Manual) PT INR APTT Heparin Anti-Xa Level ABG pH POC ABG pO2 ABG pO2 ABG HCO3 ABG O2 Saturation ABG Base Excess POC ABG pCO2 ABG Hemoglobin ABG Oxyhemoglobin ABG Chloride ABG Glucose Oxyhemoglobin Sodium Potassium Chloride Carbon Dioxide BUN Creatinine Glucose POC Glucose 161 H 126 H 139 H Lactic Acid Calcium Phosphorus Magnesium AST ALT Lactate Dehydrogenase Total Bilirubin Direct Bilirubin CK-MB (CK-2) C-Reactive Protein NT-Pro-B Natriuret Pep Total Protein Albumin Arterial Blood Glucose Urine WBC (Auto) Urine Creatinine 12/14/19 12/14/19 12/14/19 06:03 06:03 09:37 WBC RBC Hgb 9.6 L Hct 30.4 L MCHC RDW MCV MCH Lymph % (Auto) [place] % (Auto) [place] # Eos # Lymph # (Auto) [place] # (Auto) Eos # (Auto) Seg Neutrophils % Seg Neuts % (Manual) Baso # (Auto) Lymphocytes % (Manual) Monocytes % (Manual) Eosinophils % (Manual) Basophils % (Manual) Seg Neutrophils # Seg Neutrophils # Man Lymphocytes # (Manual) Monocytes # (Manual) Eosinophils # (Manual) Nucleated RBC % Basophils # (Manual) PT INR APTT Heparin Anti-Xa Level 0.24 L ABG pH POC ABG pO2 ABG pO2 ABG HCO3 ABG O2 Saturation ABG Base Excess POC ABG pCO2 ABG Hemoglobin ABG Oxyhemoglobin ABG Chloride ABG Glucose Oxyhemoglobin Sodium Potassium Chloride Carbon Dioxide BUN Creatinine 0.6 L Glucose 162 H POC Glucose Lactic Acid Calcium Phosphorus Magnesium AST 71 H ALT 118 H Lactate Dehydrogenase Total Bilirubin Direct Bilirubin CK-MB (CK-2) C-Reactive Protein NT-Pro-B Natriuret Pep Total Protein 6.2 L Albumin 2.3 L Arterial Blood Glucose Urine WBC (Auto) Urine Creatinine 12/14/19 12/14/19 12/15/19 12:06 18:18 00:19 WBC RBC Hgb Hct MCHC RDW MCV MCH Lymph % (Auto) [place] % (Auto) [place] # Eos # Lymph # (Auto) [place] # (Auto) Eos # (Auto) Seg Neutrophils % Seg Neuts % (Manual) Baso # (Auto) Lymphocytes % (Manual) Monocytes % (Manual) Eosinophils % (Manual) Basophils % (Manual) Seg Neutrophils # Seg Neutrophils # Man Lymphocytes # (Manual) Monocytes # (Manual) Eosinophils # (Manual) Nucleated RBC % Basophils # (Manual) PT INR APTT Heparin Anti-Xa Level ABG pH POC ABG pO2 ABG pO2 ABG HCO3 ABG O2 Saturation ABG Base Excess POC ABG pCO2 ABG Hemoglobin ABG Oxyhemoglobin ABG Chloride ABG Glucose Oxyhemoglobin Sodium Potassium Chloride Carbon Dioxide BUN Creatinine Glucose POC Glucose 147 H 166 H 123 H Lactic Acid Calcium Phosphorus Magnesium AST ALT Lactate Dehydrogenase Total Bilirubin Direct Bilirubin CK-MB (CK-2) C-Reactive Protein NT-Pro-B Natriuret Pep Total Protein Albumin Arterial Blood Glucose Urine WBC (Auto) Urine Creatinine 12/15/19 12/15/19 12/15/19 05:28 05:29 05:29 WBC 14.9 H RBC 3.19 L Hgb 9.1 L Hct 28.7 L MCHC RDW 16.0 H MCV MCH Lymph % (Auto) [place] % (Auto) [place] # Eos # Lymph # (Auto) [place] # (Auto) Eos # (Auto) Seg Neutrophils % Seg Neuts % (Manual) Baso # (Auto) Lymphocytes % (Manual) Monocytes % (Manual) Eosinophils % (Manual) Basophils % (Manual) Seg Neutrophils # Seg Neutrophils # Man Lymphocytes # (Manual) Monocytes # (Manual) Eosinophils # (Manual) Nucleated RBC % Basophils # (Manual) PT INR APTT Heparin Anti-Xa Level 0.19 L ABG pH POC ABG pO2 ABG pO2 ABG HCO3 ABG O2 Saturation ABG Base Excess POC ABG pCO2 ABG Hemoglobin ABG Oxyhemoglobin ABG Chloride ABG Glucose Oxyhemoglobin Sodium Potassium Chloride Carbon Dioxide BUN Creatinine 0.6 L Glucose 110 H POC Glucose Lactic Acid Calcium Phosphorus Magnesium AST ALT Lactate Dehydrogenase Total Bilirubin Direct Bilirubin CK-MB (CK-2) C-Reactive Protein NT-Pro-B Natriuret Pep Total Protein Albumin Arterial Blood Glucose Urine WBC (Auto) Urine Creatinine 12/15/19 12/15/19 12/15/19 05:53 11:50 17:26 WBC RBC Hgb Hct MCHC RDW MCV MCH Lymph % (Auto) [place] % (Auto) [place] # Eos # Lymph # (Auto) [place] # (Auto) Eos # (Auto) Seg Neutrophils % Seg Neuts % (Manual) Baso # (Auto) Lymphocytes % (Manual) Monocytes % (Manual) Eosinophils % (Manual) Basophils % (Manual) Seg Neutrophils # Seg Neutrophils # Man Lymphocytes # (Manual) Monocytes # (Manual) Eosinophils # (Manual) Nucleated RBC % Basophils # (Manual) PT INR APTT Heparin Anti-Xa Level ABG pH POC ABG pO2 ABG pO2 ABG HCO3 ABG O2 Saturation ABG Base Excess POC ABG pCO2 ABG Hemoglobin ABG Oxyhemoglobin ABG Chloride ABG Glucose Oxyhemoglobin Sodium Potassium Chloride Carbon Dioxide BUN Creatinine Glucose POC Glucose 119 H 132 H 128 H Lactic Acid Calcium Phosphorus Magnesium AST ALT Lactate Dehydrogenase Total Bilirubin Direct Bilirubin CK-MB (CK-2) C-Reactive Protein NT-Pro-B Natriuret Pep Total Protein Albumin Arterial Blood Glucose Urine WBC (Auto) Urine Creatinine 12/15/19 12/16/19 12/16/19 23:11 05:30 05:46 WBC RBC Hgb 8.8 L Hct 27.9 L MCHC RDW MCV MCH Lymph % (Auto) [place] % (Auto) [place] # Eos # Lymph # (Auto) [place] # (Auto) Eos # (Auto) Seg Neutrophils % Seg Neuts % (Manual) Baso # (Auto) Lymphocytes % (Manual) Monocytes % (Manual) Eosinophils % (Manual) Basophils % (Manual) Seg Neutrophils # Seg Neutrophils # Man Lymphocytes # (Manual) Monocytes # (Manual) Eosinophils # (Manual) Nucleated RBC % Basophils # (Manual) PT INR APTT Heparin Anti-Xa Level ABG pH POC ABG pO2 ABG pO2 ABG HCO3 ABG O2 Saturation ABG Base Excess POC ABG pCO2 ABG Hemoglobin ABG Oxyhemoglobin ABG Chloride ABG Glucose Oxyhemoglobin Sodium Potassium Chloride Carbon Dioxide BUN Creatinine Glucose POC Glucose 150 H 134 H Lactic Acid Calcium Phosphorus Magnesium AST ALT Lactate Dehydrogenase Total Bilirubin Direct Bilirubin CK-MB (CK-2) C-Reactive Protein NT-Pro-B Natriuret Pep Total Protein Albumin Arterial Blood Glucose Urine WBC (Auto) Urine Creatinine 12/16/19 12/16/19 12/16/19 05:46 05:46 11:44 WBC RBC Hgb Hct MCHC RDW MCV MCH Lymph % (Auto) [place] % (Auto) [place] # Eos # Lymph # (Auto) [place] # (Auto) Eos # (Auto) Seg Neutrophils % Seg Neuts % (Manual) Baso # (Auto) Lymphocytes % (Manual) Monocytes % (Manual) Eosinophils % (Manual) Basophils % (Manual) Seg Neutrophils # Seg Neutrophils # Man Lymphocytes # (Manual) Monocytes # (Manual) Eosinophils # (Manual) Nucleated RBC % Basophils # (Manual) PT INR APTT Heparin Anti-Xa Level 0.20 L ABG pH POC ABG pO2 ABG pO2 ABG HCO3 ABG O2 Saturation ABG Base Excess POC ABG pCO2 ABG Hemoglobin ABG Oxyhemoglobin ABG Chloride ABG Glucose Oxyhemoglobin Sodium Potassium Chloride Carbon Dioxide 31 H BUN Creatinine 0.5 L Glucose 147 H POC Glucose 164 H Lactic Acid Calcium Phosphorus Magnesium AST ALT Lactate Dehydrogenase Total Bilirubin Direct Bilirubin CK-MB (CK-2) C-Reactive Protein NT-Pro-B Natriuret Pep Total Protein Albumin Arterial Blood Glucose Urine WBC (Auto) Urine Creatinine 12/16/19 12/16/19 12/17/19 17:17 23:49 05:30 WBC 13.9 H RBC 3.27 L Hgb 9.4 L Hct 29.2 L MCHC RDW 16.0 H MCV MCH Lymph % (Auto) [place] % (Auto) 8.8 H [place] # Eos # Lymph # (Auto) [place] # (Auto) 1.2 H Eos # (Auto) 0.5 H Seg Neutrophils % 70.5 H Seg Neuts % (Manual) Baso # (Auto) 0.2 H Lymphocytes % (Manual) Monocytes % (Manual) Eosinophils % (Manual) Basophils % (Manual) Seg Neutrophils # 9.8 H Seg Neutrophils # Man Lymphocytes # (Manual) Monocytes # (Manual) Eosinophils # (Manual) Nucleated RBC % Basophils # (Manual) PT INR APTT Heparin Anti-Xa Level ABG pH POC ABG pO2 ABG pO2 ABG HCO3 ABG O2 Saturation ABG Base Excess POC ABG pCO2 ABG Hemoglobin ABG Oxyhemoglobin ABG Chloride ABG Glucose Oxyhemoglobin Sodium Potassium Chloride Carbon Dioxide BUN Creatinine Glucose POC Glucose 162 H 144 H Lactic Acid Calcium Phosphorus Magnesium AST ALT Lactate Dehydrogenase Total Bilirubin Direct Bilirubin CK-MB (CK-2) C-Reactive Protein NT-Pro-B Natriuret Pep Total Protein Albumin Arterial Blood Glucose Urine WBC (Auto) Urine Creatinine 12/17/19 12/17/19 12/17/19 05:30 06:06 11:50 WBC RBC Hgb Hct MCHC RDW MCV MCH Lymph % (Auto) [place] % (Auto) [place] # Eos # Lymph # (Auto) [place] # (Auto) Eos # (Auto) Seg Neutrophils % Seg Neuts % (Manual) Baso # (Auto) Lymphocytes % (Manual) Monocytes % (Manual) Eosinophils % (Manual) Basophils % (Manual) Seg Neutrophils # Seg Neutrophils # Man Lymphocytes # (Manual) Monocytes # (Manual) Eosinophils # (Manual) Nucleated RBC % Basophils # (Manual) PT INR APTT Heparin Anti-Xa Level ABG pH POC ABG pO2 ABG pO2 ABG HCO3 ABG O2 Saturation ABG Base Excess POC ABG pCO2 ABG Hemoglobin ABG Oxyhemoglobin ABG Chloride ABG Glucose Oxyhemoglobin Sodium Potassium Chloride 97.4 L Carbon Dioxide 32 H BUN Creatinine 0.5 L Glucose 135 H POC Glucose 151 H 140 H Lactic Acid Calcium Phosphorus Magnesium AST ALT Lactate Dehydrogenase Total Bilirubin Direct Bilirubin CK-MB (CK-2) C-Reactive Protein NT-Pro-B Natriuret Pep Total Protein Albumin Arterial Blood Glucose Urine WBC (Auto) Urine Creatinine 12/17/19 12/17/19 12/18/19 17:50 23:46 05:17 WBC RBC Hgb 8.8 L Hct 28.0 L MCHC RDW MCV MCH Lymph % (Auto) [place] % (Auto) [place] # Eos # Lymph # (Auto) [place] # (Auto) Eos # (Auto) Seg Neutrophils % Seg Neuts % (Manual) Baso # (Auto) Lymphocytes % (Manual) Monocytes % (Manual) Eosinophils % (Manual) Basophils % (Manual) Seg Neutrophils # Seg Neutrophils # Man Lymphocytes # (Manual) Monocytes # (Manual) Eosinophils # (Manual) Nucleated RBC % Basophils # (Manual) PT INR APTT Heparin Anti-Xa Level ABG pH POC ABG pO2 ABG pO2 ABG HCO3 ABG O2 Saturation ABG Base Excess POC ABG pCO2 ABG Hemoglobin ABG Oxyhemoglobin ABG Chloride ABG Glucose Oxyhemoglobin Sodium Potassium Chloride Carbon Dioxide BUN Creatinine Glucose POC Glucose 158 H 150 H Lactic Acid Calcium Phosphorus Magnesium AST ALT Lactate Dehydrogenase Total Bilirubin Direct Bilirubin CK-MB (CK-2) C-Reactive Protein NT-Pro-B Natriuret Pep Total Protein Albumin Arterial Blood Glucose Urine WBC (Auto) Urine Creatinine 12/18/19 12/18/19 12/18/19 05:17 05:49 11:12 WBC RBC Hgb Hct MCHC RDW MCV MCH Lymph % (Auto) [place] % (Auto) [place] # Eos # Lymph # (Auto) [place] # (Auto) Eos # (Auto) Seg Neutrophils % Seg Neuts % (Manual) Baso # (Auto) Lymphocytes % (Manual) Monocytes % (Manual) Eosinophils % (Manual) Basophils % (Manual) Seg Neutrophils # Seg Neutrophils # Man Lymphocytes # (Manual) Monocytes # (Manual) Eosinophils # (Manual) Nucleated RBC % Basophils # (Manual) PT INR APTT Heparin Anti-Xa Level 0.16 L ABG pH POC ABG pO2 ABG pO2 ABG HCO3 ABG O2 Saturation ABG Base Excess POC ABG pCO2 ABG Hemoglobin ABG Oxyhemoglobin ABG Chloride ABG Glucose Oxyhemoglobin Sodium Potassium Chloride Carbon Dioxide BUN Creatinine Glucose POC Glucose 127 H 191 H Lactic Acid Calcium Phosphorus Magnesium AST ALT Lactate Dehydrogenase Total Bilirubin Direct Bilirubin CK-MB (CK-2) C-Reactive Protein NT-Pro-B Natriuret Pep Total Protein Albumin Arterial Blood Glucose Urine WBC (Auto) Urine Creatinine 12/18/19 12/18/19 12/19/19 17:03 20:16 00:08 WBC RBC Hgb Hct MCHC RDW MCV MCH Lymph % (Auto) [place] % (Auto) [place] # Eos # Lymph # (Auto) [place] # (Auto) Eos # (Auto) Seg Neutrophils % Seg Neuts % (Manual) Baso # (Auto) Lymphocytes % (Manual) Monocytes % (Manual) Eosinophils % (Manual) Basophils % (Manual) Seg Neutrophils # Seg Neutrophils # Man Lymphocytes # (Manual) Monocytes # (Manual) Eosinophils # (Manual) Nucleated RBC % Basophils # (Manual) PT INR APTT Heparin Anti-Xa Level ABG pH POC ABG pO2 ABG pO2 ABG HCO3 ABG O2 Saturation ABG Base Excess POC ABG pCO2 ABG Hemoglobin ABG Oxyhemoglobin ABG Chloride ABG Glucose Oxyhemoglobin Sodium Potassium Chloride Carbon Dioxide BUN Creatinine Glucose POC Glucose 133 H 128 H 129 H Lactic Acid Calcium Phosphorus Magnesium AST ALT Lactate Dehydrogenase Total Bilirubin Direct Bilirubin CK-MB (CK-2) C-Reactive Protein NT-Pro-B Natriuret Pep Total Protein Albumin Arterial Blood Glucose Urine WBC (Auto) Urine Creatinine 12/19/19 12/19/19 12/19/19 04:45 04:45 05:35 WBC RBC Hgb Hct MCHC RDW MCV MCH Lymph % (Auto) [place] % (Auto) [place] # Eos # Lymph # (Auto) [place] # (Auto) Eos # (Auto) Seg Neutrophils % Seg Neuts % (Manual) Baso # (Auto) Lymphocytes % (Manual) Monocytes % (Manual) Eosinophils % (Manual) Basophils % (Manual) Seg Neutrophils # Seg Neutrophils # Man Lymphocytes # (Manual) Monocytes # (Manual) Eosinophils # (Manual) Nucleated RBC % Basophils # (Manual) PT INR APTT Heparin Anti-Xa Level 0.17 L ABG pH POC ABG pO2 ABG pO2 ABG HCO3 ABG O2 Saturation ABG Base Excess POC ABG pCO2 ABG Hemoglobin ABG Oxyhemoglobin ABG Chloride ABG Glucose Oxyhemoglobin Sodium Potassium Chloride Carbon Dioxide BUN Creatinine Glucose POC Glucose 120 H Lactic Acid Calcium Phosphorus Magnesium AST ALT Lactate Dehydrogenase 228 H Total Bilirubin Direct Bilirubin CK-MB (CK-2) C-Reactive Protein NT-Pro-B Natriuret Pep Total Protein Albumin Arterial Blood Glucose Urine WBC (Auto) Urine Creatinine 12/19/19 12/19/19 12/19/19 09:20 11:32 11:32 WBC 14.6 H RBC 3.08 L Hgb 9.0 L Hct 26.8 L MCHC RDW 15.9 H MCV MCH Lymph % (Auto) [place] % (Auto) [place] # Eos # Lymph # (Auto) [place] # (Auto) Eos # (Auto) Seg Neutrophils % Seg Neuts % (Manual) 82.0 H Baso # (Auto) Lymphocytes % (Manual) 10.0 L Monocytes % (Manual) Eosinophils % (Manual) Basophils % (Manual) Seg Neutrophils # Seg Neutrophils # Man 12.0 H Lymphocytes # (Manual) Monocytes # (Manual) 0.9 H Eosinophils # (Manual) Nucleated RBC % 1.0 H Basophils # (Manual) PT INR APTT Heparin Anti-Xa Level ABG pH 7.451 H POC ABG pO2 ABG pO2 62.6 L ABG HCO3 33.2 H ABG O2 Saturation 93.8 L ABG Base Excess 8.3 H POC ABG pCO2 ABG Hemoglobin 8.3 L ABG Oxyhemoglobin ABG Chloride ABG Glucose Oxyhemoglobin 91.9 L Sodium Potassium Chloride 95.0 L Carbon Dioxide 33 H BUN 22 H Creatinine 0.6 L Glucose 150 H POC Glucose Lactic Acid Calcium Phosphorus Magnesium AST ALT Lactate Dehydrogenase Total Bilirubin Direct Bilirubin CK-MB (CK-2) C-Reactive Protein NT-Pro-B Natriuret Pep Total Protein 6.2 L Albumin 2.4 L Arterial Blood Glucose Urine WBC (Auto) Urine Creatinine 12/19/19 12/19/19 12/20/19 11:56 18:17 00:09 WBC RBC Hgb Hct MCHC RDW MCV MCH Lymph % (Auto) [place] % (Auto) [place] # Eos # Lymph # (Auto) [place] # (Auto) Eos # (Auto) Seg Neutrophils % Seg Neuts % (Manual) Baso # (Auto) Lymphocytes % (Manual) Monocytes % (Manual) Eosinophils % (Manual) Basophils % (Manual) Seg Neutrophils # Seg Neutrophils # Man Lymphocytes # (Manual) Monocytes # (Manual) Eosinophils # (Manual) Nucleated RBC % Basophils # (Manual) PT INR APTT Heparin Anti-Xa Level ABG pH POC ABG pO2 ABG pO2 ABG HCO3 ABG O2 Saturation ABG Base Excess POC ABG pCO2 ABG Hemoglobin ABG Oxyhemoglobin ABG Chloride ABG Glucose Oxyhemoglobin Sodium Potassium Chloride Carbon Dioxide BUN Creatinine Glucose POC Glucose 156 H 156 H 155 H Lactic Acid Calcium Phosphorus Magnesium AST ALT Lactate Dehydrogenase Total Bilirubin Direct Bilirubin CK-MB (CK-2) C-Reactive Protein NT-Pro-B Natriuret Pep Total Protein Albumin Arterial Blood Glucose Urine WBC (Auto) Urine Creatinine 12/20/19 12/20/19 12/20/19 05:26 06:02 18:17 WBC RBC Hgb Hct MCHC RDW MCV MCH Lymph % (Auto) [place] % (Auto) [place] # Eos # Lymph # (Auto) [place] # (Auto) Eos # (Auto) Seg Neutrophils % Seg Neuts % (Manual) Baso # (Auto) Lymphocytes % (Manual) Monocytes % (Manual) Eosinophils % (Manual) Basophils % (Manual) Seg Neutrophils # Seg Neutrophils # Man Lymphocytes # (Manual) Monocytes # (Manual) Eosinophils # (Manual) Nucleated RBC % Basophils # (Manual) PT INR APTT Heparin Anti-Xa Level 0.19 L ABG pH POC ABG pO2 ABG pO2 ABG HCO3 ABG O2 Saturation ABG Base Excess POC ABG pCO2 ABG Hemoglobin ABG Oxyhemoglobin ABG Chloride ABG Glucose Oxyhemoglobin Sodium Potassium Chloride Carbon Dioxide BUN Creatinine Glucose POC Glucose 137 H 128 H Lactic Acid Calcium Phosphorus Magnesium AST ALT Lactate Dehydrogenase Total Bilirubin Direct Bilirubin CK-MB (CK-2) C-Reactive Protein NT-Pro-B Natriuret Pep Total Protein Albumin Arterial Blood Glucose Urine WBC (Auto) Urine Creatinine 12/20/19 12/21/19 12/21/19 23:34 05:31 05:31 WBC 12.7 H RBC 3.09 L Hgb 8.9 L Hct 27.4 L MCHC RDW 15.8 H MCV MCH Lymph % (Auto) 12.1 L [place] % (Auto) 7.8 H [place] # Eos # Lymph # (Auto) [place] # (Auto) 1.0 H Eos # (Auto) Seg Neutrophils % 77.1 H Seg Neuts % (Manual) Baso # (Auto) Lymphocytes % (Manual) Monocytes % (Manual) Eosinophils % (Manual) Basophils % (Manual) Seg Neutrophils # 9.8 H Seg Neutrophils # Man Lymphocytes # (Manual) Monocytes # (Manual) Eosinophils # (Manual) Nucleated RBC % Basophils # (Manual) PT INR APTT Heparin Anti-Xa Level ABG pH POC ABG pO2 ABG pO2 ABG HCO3 ABG O2 Saturation ABG Base Excess POC ABG pCO2 ABG Hemoglobin ABG Oxyhemoglobin ABG Chloride ABG Glucose Oxyhemoglobin Sodium Potassium Chloride 96.9 L Carbon Dioxide 37 H BUN 27 H Creatinine 0.7 L Glucose 140 H POC Glucose 145 H Lactic Acid Calcium Phosphorus Magnesium AST ALT Lactate Dehydrogenase Total Bilirubin Direct Bilirubin CK-MB (CK-2) C-Reactive Protein NT-Pro-B Natriuret Pep Total Protein Albumin Arterial Blood Glucose Urine WBC (Auto) Urine Creatinine 12/21/19 12/21/19 12/21/19 05:38 10:13 11:51 WBC RBC Hgb Hct MCHC RDW MCV MCH Lymph % (Auto) [place] % (Auto) [place] # Eos # Lymph # (Auto) [place] # (Auto) Eos # (Auto) Seg Neutrophils % Seg Neuts % (Manual) Baso # (Auto) Lymphocytes % (Manual) Monocytes % (Manual) Eosinophils % (Manual) Basophils % (Manual) Seg Neutrophils # Seg Neutrophils # Man Lymphocytes # (Manual) Monocytes # (Manual) Eosinophils # (Manual) Nucleated RBC % Basophils # (Manual) PT INR APTT 23.9 L Heparin Anti-Xa Level < 0.10 L ABG pH POC ABG pO2 ABG pO2 ABG HCO3 ABG O2 Saturation ABG Base Excess POC ABG pCO2 ABG Hemoglobin ABG Oxyhemoglobin ABG Chloride ABG Glucose Oxyhemoglobin Sodium Potassium Chloride Carbon Dioxide BUN Creatinine Glucose POC Glucose 151 H 145 H Lactic Acid Calcium Phosphorus Magnesium AST ALT Lactate Dehydrogenase Total Bilirubin Direct Bilirubin CK-MB (CK-2) C-Reactive Protein NT-Pro-B Natriuret Pep Total Protein Albumin Arterial Blood Glucose Urine WBC (Auto) Urine Creatinine 12/21/19 12/22/19 12/22/19 17:16 00:01 01:33 WBC RBC Hgb Hct MCHC RDW MCV MCH Lymph % (Auto) [place] % (Auto) [place] # Eos # Lymph # (Auto) [place] # (Auto) Eos # (Auto) Seg Neutrophils % Seg Neuts % (Manual) Baso # (Auto) Lymphocytes % (Manual) Monocytes % (Manual) Eosinophils % (Manual) Basophils % (Manual) Seg Neutrophils # Seg Neutrophils # Man Lymphocytes # (Manual) Monocytes # (Manual) Eosinophils # (Manual) Nucleated RBC % Basophils # (Manual) PT INR APTT Heparin Anti-Xa Level 0.10 L ABG pH POC ABG pO2 ABG pO2 ABG HCO3 ABG O2 Saturation ABG Base Excess POC ABG pCO2 ABG Hemoglobin ABG Oxyhemoglobin ABG Chloride ABG Glucose Oxyhemoglobin Sodium Potassium Chloride Carbon Dioxide BUN Creatinine Glucose POC Glucose 167 H 179 H Lactic Acid Calcium Phosphorus Magnesium AST ALT Lactate Dehydrogenase Total Bilirubin Direct Bilirubin CK-MB (CK-2) C-Reactive Protein NT-Pro-B Natriuret Pep Total Protein Albumin Arterial Blood Glucose Urine WBC (Auto) Urine Creatinine 12/22/19 12/22/19 12/22/19 03:22 05:10 05:10 WBC 13.8 H RBC 3.20 L Hgb 8.9 L Hct 28.1 L MCHC RDW 15.9 H MCV MCH Lymph % (Auto) [place] % (Auto) [place] # Eos # Lymph # (Auto) [place] # (Auto) Eos # (Auto) Seg Neutrophils % Seg Neuts % (Manual) Baso # (Auto) Lymphocytes % (Manual) Monocytes % (Manual) Eosinophils % (Manual) Basophils % (Manual) Seg Neutrophils # Seg Neutrophils # Man Lymphocytes # (Manual) Monocytes # (Manual) Eosinophils # (Manual) Nucleated RBC % Basophils # (Manual) PT INR APTT Heparin Anti-Xa Level ABG pH POC ABG pO2 52.3 L ABG pO2 ABG HCO3 ABG O2 Saturation ABG Base Excess POC ABG pCO2 52.9 H ABG Hemoglobin 10.7 L ABG Oxyhemoglobin 84 L ABG Chloride ABG Glucose Oxyhemoglobin Sodium Potassium Chloride 96.6 L Carbon Dioxide BUN 25 H Creatinine 0.7 L Glucose 129 H POC Glucose Lactic Acid Calcium Phosphorus Magnesium AST ALT Lactate Dehydrogenase Total Bilirubin Direct Bilirubin CK-MB (CK-2) C-Reactive Protein NT-Pro-B Natriuret Pep Total Protein Albumin Arterial Blood Glucose Urine WBC (Auto) Urine Creatinine 12/22/19 12/22/19 12/22/19 05:18 12:32 12:43 WBC RBC Hgb Hct MCHC RDW MCV MCH Lymph % (Auto) [place] % (Auto) [place] # Eos # Lymph # (Auto) [place] # (Auto) Eos # (Auto) Seg Neutrophils % Seg Neuts % (Manual) Baso # (Auto) Lymphocytes % (Manual) Monocytes % (Manual) Eosinophils % (Manual) Basophils % (Manual) Seg Neutrophils # Seg Neutrophils # Man Lymphocytes # (Manual) Monocytes # (Manual) Eosinophils # (Manual) Nucleated RBC % Basophils # (Manual) PT INR APTT Heparin Anti-Xa Level 0.18 L ABG pH POC ABG pO2 ABG pO2 ABG HCO3 ABG O2 Saturation ABG Base Excess POC ABG pCO2 ABG Hemoglobin ABG Oxyhemoglobin ABG Chloride ABG Glucose Oxyhemoglobin Sodium Potassium Chloride Carbon Dioxide BUN Creatinine Glucose POC Glucose 131 H 208 H Lactic Acid Calcium Phosphorus Magnesium AST ALT Lactate Dehydrogenase Total Bilirubin Direct Bilirubin CK-MB (CK-2) C-Reactive Protein NT-Pro-B Natriuret Pep Total Protein Albumin Arterial Blood Glucose Urine WBC (Auto) Urine Creatinine 12/22/19 12/22/19 12/23/19 17:44 23:20 03:51 WBC 15.2 H RBC 3.43 L Hgb 9.6 L Hct 30.3 L MCHC RDW 15.9 H MCV MCH Lymph % (Auto) [place] % (Auto) [place] # Eos # Lymph # (Auto) [place] # (Auto) Eos # (Auto) Seg Neutrophils % Seg Neuts % (Manual) Baso # (Auto) Lymphocytes % (Manual) Monocytes % (Manual) Eosinophils % (Manual) Basophils % (Manual) Seg Neutrophils # Seg Neutrophils # Man Lymphocytes # (Manual) Monocytes # (Manual) Eosinophils # (Manual) Nucleated RBC % Basophils # (Manual) PT INR APTT Heparin Anti-Xa Level ABG pH POC ABG pO2 ABG pO2 ABG HCO3 ABG O2 Saturation ABG Base Excess POC ABG pCO2 ABG Hemoglobin ABG Oxyhemoglobin ABG Chloride ABG Glucose Oxyhemoglobin Sodium Potassium Chloride Carbon Dioxide BUN Creatinine Glucose POC Glucose 209 H 119 H Lactic Acid Calcium Phosphorus Magnesium AST ALT Lactate Dehydrogenase Total Bilirubin Direct Bilirubin CK-MB (CK-2) C-Reactive Protein NT-Pro-B Natriuret Pep Total Protein Albumin Arterial Blood Glucose Urine WBC (Auto) Urine Creatinine 12/23/19 12/23/19 12/23/19 03:51 05:31 12:09 WBC RBC Hgb Hct MCHC RDW MCV MCH Lymph % (Auto) [place] % (Auto) [place] # Eos # Lymph # (Auto) [place] # (Auto) Eos # (Auto) Seg Neutrophils % Seg Neuts % (Manual) Baso # (Auto) Lymphocytes % (Manual) Monocytes % (Manual) Eosinophils % (Manual) Basophils % (Manual) Seg Neutrophils # Seg Neutrophils # Man Lymphocytes # (Manual) Monocytes # (Manual) Eosinophils # (Manual) Nucleated RBC % Basophils # (Manual) PT INR APTT Heparin Anti-Xa Level ABG pH POC ABG pO2 ABG pO2 ABG HCO3 ABG O2 Saturation ABG Base Excess POC ABG pCO2 ABG Hemoglobin ABG Oxyhemoglobin ABG Chloride ABG Glucose Oxyhemoglobin Sodium Potassium Chloride 97.2 L Carbon Dioxide 31 H BUN 23 H Creatinine 0.6 L Glucose 153 H POC Glucose 149 H 144 H Lactic Acid Calcium Phosphorus Magnesium AST ALT Lactate Dehydrogenase Total Bilirubin Direct Bilirubin CK-MB (CK-2) C-Reactive Protein NT-Pro-B Natriuret Pep Total Protein Albumin Arterial Blood Glucose Urine WBC (Auto) Urine Creatinine 12/23/19 12/23/19 12/23/19 15:30 17:49 23:31 WBC RBC Hgb Hct MCHC RDW MCV MCH Lymph % (Auto) [place] % (Auto) [place] # Eos # Lymph # (Auto) [place] # (Auto) Eos # (Auto) Seg Neutrophils % Seg Neuts % (Manual) Baso # (Auto) Lymphocytes % (Manual) Monocytes % (Manual) Eosinophils % (Manual) Basophils % (Manual) Seg Neutrophils # Seg Neutrophils # Man Lymphocytes # (Manual) Monocytes # (Manual) Eosinophils # (Manual) Nucleated RBC % Basophils # (Manual) PT INR APTT Heparin Anti-Xa Level 0.21 L ABG pH POC ABG pO2 ABG pO2 ABG HCO3 ABG O2 Saturation ABG Base Excess POC ABG pCO2 ABG Hemoglobin ABG Oxyhemoglobin ABG Chloride ABG Glucose Oxyhemoglobin Sodium Potassium Chloride Carbon Dioxide BUN Creatinine Glucose POC Glucose 192 H 151 H Lactic Acid Calcium Phosphorus Magnesium AST ALT Lactate Dehydrogenase Total Bilirubin Direct Bilirubin CK-MB (CK-2) C-Reactive Protein NT-Pro-B Natriuret Pep Total Protein Albumin Arterial Blood Glucose Urine WBC (Auto) Urine Creatinine 12/24/19 12/24/19 12/24/19 05:34 12:13 16:50 WBC RBC Hgb Hct MCHC RDW MCV MCH Lymph % (Auto) [place] % (Auto) [place] # Eos # Lymph # (Auto) [place] # (Auto) Eos # (Auto) Seg Neutrophils % Seg Neuts % (Manual) Baso # (Auto) Lymphocytes % (Manual) Monocytes % (Manual) Eosinophils % (Manual) Basophils % (Manual) Seg Neutrophils # Seg Neutrophils # Man Lymphocytes # (Manual) Monocytes # (Manual) Eosinophils # (Manual) Nucleated RBC % Basophils # (Manual) PT INR APTT Heparin Anti-Xa Level 0.16 L ABG pH POC ABG pO2 ABG pO2 ABG HCO3 ABG O2 Saturation ABG Base Excess POC ABG pCO2 ABG Hemoglobin ABG Oxyhemoglobin ABG Chloride ABG Glucose Oxyhemoglobin Sodium Potassium Chloride Carbon Dioxide BUN Creatinine Glucose POC Glucose 145 H 124 H Lactic Acid Calcium Phosphorus Magnesium AST ALT Lactate Dehydrogenase Total Bilirubin Direct Bilirubin CK-MB (CK-2) C-Reactive Protein NT-Pro-B Natriuret Pep Total Protein Albumin Arterial Blood Glucose Urine WBC (Auto) Urine Creatinine 12/24/19 12/25/19 12/25/19 17:53 00:14 04:18 WBC 12.9 H RBC 3.30 L Hgb 9.1 L Hct 28.8 L MCHC RDW 16.4 H MCV MCH Lymph % (Auto) [place] % (Auto) 7.8 H [place] # Eos # Lymph # (Auto) [place] # (Auto) 1.0 H Eos # (Auto) Seg Neutrophils % 75.5 H Seg Neuts % (Manual) Baso # (Auto) Lymphocytes % (Manual) Monocytes % (Manual) Eosinophils % (Manual) Basophils % (Manual) Seg Neutrophils # 9.7 H Seg Neutrophils # Man Lymphocytes # (Manual) Monocytes # (Manual) Eosinophils # (Manual) Nucleated RBC % Basophils # (Manual) PT INR APTT Heparin Anti-Xa Level ABG pH POC ABG pO2 ABG pO2 ABG HCO3 ABG O2 Saturation ABG Base Excess POC ABG pCO2 ABG Hemoglobin ABG Oxyhemoglobin ABG Chloride ABG Glucose Oxyhemoglobin Sodium Potassium Chloride Carbon Dioxide BUN Creatinine Glucose POC Glucose 164 H 148 H Lactic Acid Calcium Phosphorus Magnesium AST ALT Lactate Dehydrogenase Total Bilirubin Direct Bilirubin CK-MB (CK-2) C-Reactive Protein NT-Pro-B Natriuret Pep Total Protein Albumin Arterial Blood Glucose Urine WBC (Auto) Urine Creatinine 12/25/19 12/25/19 12/25/19 04:18 05:38 11:44 WBC RBC Hgb Hct MCHC RDW MCV MCH Lymph % (Auto) [place] % (Auto) [place] # Eos # Lymph # (Auto) [place] # (Auto) Eos # (Auto) Seg Neutrophils % Seg Neuts % (Manual) Baso # (Auto) Lymphocytes % (Manual) Monocytes % (Manual) Eosinophils % (Manual) Basophils % (Manual) Seg Neutrophils # Seg Neutrophils # Man Lymphocytes # (Manual) Monocytes # (Manual) Eosinophils # (Manual) Nucleated RBC % Basophils # (Manual) PT INR APTT Heparin Anti-Xa Level ABG pH POC ABG pO2 ABG pO2 ABG HCO3 ABG O2 Saturation ABG Base Excess POC ABG pCO2 ABG Hemoglobin ABG Oxyhemoglobin ABG Chloride ABG Glucose Oxyhemoglobin Sodium Potassium Chloride Carbon Dioxide 33 H BUN 27 H Creatinine 0.6 L Glucose 132 H POC Glucose 152 H 166 H Lactic Acid Calcium Phosphorus Magnesium AST ALT Lactate Dehydrogenase Total Bilirubin Direct Bilirubin CK-MB (CK-2) C-Reactive Protein NT-Pro-B Natriuret Pep Total Protein Albumin Arterial Blood Glucose Urine WBC (Auto) Urine Creatinine 12/25/19 12/26/19 12/26/19 18:29 00:17 00:18 WBC RBC Hgb Hct MCHC RDW MCV MCH Lymph % (Auto) [place] % (Auto) [place] # Eos # Lymph # (Auto) [place] # (Auto) Eos # (Auto) Seg Neutrophils % Seg Neuts % (Manual) Baso # (Auto) Lymphocytes % (Manual) Monocytes % (Manual) Eosinophils % (Manual) Basophils % (Manual) Seg Neutrophils # Seg Neutrophils # Man Lymphocytes # (Manual) Monocytes # (Manual) Eosinophils # (Manual) Nucleated RBC % Basophils # (Manual) PT INR APTT Heparin Anti-Xa Level ABG pH POC ABG pO2 ABG pO2 ABG HCO3 ABG O2 Saturation ABG Base Excess POC ABG pCO2 ABG Hemoglobin ABG Oxyhemoglobin ABG Chloride ABG Glucose Oxyhemoglobin Sodium Potassium Chloride 97.8 L Carbon Dioxide BUN 25 H Creatinine 0.6 L Glucose 140 H POC Glucose 194 H 151 H Lactic Acid Calcium Phosphorus Magnesium AST ALT Lactate Dehydrogenase Total Bilirubin Direct Bilirubin CK-MB (CK-2) C-Reactive Protein NT-Pro-B Natriuret Pep Total Protein Albumin Arterial Blood Glucose Urine WBC (Auto) Urine Creatinine 12/26/19 12/26/19 12/26/19 05:36 11:41 17:50 WBC RBC Hgb Hct MCHC RDW MCV MCH Lymph % (Auto) [place] % (Auto) [place] # Eos # Lymph # (Auto) [place] # (Auto) Eos # (Auto) Seg Neutrophils % Seg Neuts % (Manual) Baso # (Auto) Lymphocytes % (Manual) Monocytes % (Manual) Eosinophils % (Manual) Basophils % (Manual) Seg Neutrophils # Seg Neutrophils # Man Lymphocytes # (Manual) Monocytes # (Manual) Eosinophils # (Manual) Nucleated RBC % Basophils # (Manual) PT INR APTT Heparin Anti-Xa Level ABG pH POC ABG pO2 ABG pO2 ABG HCO3 ABG O2 Saturation ABG Base Excess POC ABG pCO2 ABG Hemoglobin ABG Oxyhemoglobin ABG Chloride ABG Glucose Oxyhemoglobin Sodium Potassium Chloride Carbon Dioxide BUN Creatinine Glucose POC Glucose 156 H 148 H 139 H Lactic Acid Calcium Phosphorus Magnesium AST ALT Lactate Dehydrogenase Total Bilirubin Direct Bilirubin CK-MB (CK-2) C-Reactive Protein NT-Pro-B Natriuret Pep Total Protein Albumin Arterial Blood Glucose Urine WBC (Auto) Urine Creatinine 12/26/19 12/27/19 12/27/19 23:19 05:34 12:02 WBC RBC Hgb Hct MCHC RDW MCV MCH Lymph % (Auto) [place] % (Auto) [place] # Eos # Lymph # (Auto) [place] # (Auto) Eos # (Auto) Seg Neutrophils % Seg Neuts % (Manual) Baso # (Auto) Lymphocytes % (Manual) Monocytes % (Manual) Eosinophils % (Manual) Basophils % (Manual) Seg Neutrophils # Seg Neutrophils # Man Lymphocytes # (Manual) Monocytes # (Manual) Eosinophils # (Manual) Nucleated RBC % Basophils # (Manual) PT INR APTT Heparin Anti-Xa Level ABG pH POC ABG pO2 ABG pO2 ABG HCO3 ABG O2 Saturation ABG Base Excess POC ABG pCO2 ABG Hemoglobin ABG Oxyhemoglobin ABG Chloride ABG Glucose Oxyhemoglobin Sodium Potassium Chloride Carbon Dioxide BUN Creatinine Glucose POC Glucose 161 H 145 H 157 H Lactic Acid Calcium Phosphorus Magnesium AST ALT Lactate Dehydrogenase Total Bilirubin Direct Bilirubin CK-MB (CK-2) C-Reactive Protein NT-Pro-B Natriuret Pep Total Protein Albumin Arterial Blood Glucose Urine WBC (Auto) Urine Creatinine 12/27/19 12/27/19 12/27/19 17:35 20:11 23:00 WBC RBC Hgb Hct MCHC RDW MCV MCH Lymph % (Auto) [place] % (Auto) [place] # Eos # Lymph # (Auto) [place] # (Auto) Eos # (Auto) Seg Neutrophils % Seg Neuts % (Manual) Baso # (Auto) Lymphocytes % (Manual) Monocytes % (Manual) Eosinophils % (Manual) Basophils % (Manual) Seg Neutrophils # Seg Neutrophils # Man Lymphocytes # (Manual) Monocytes # (Manual) Eosinophils # (Manual) Nucleated RBC % Basophils # (Manual) PT INR APTT Heparin Anti-Xa Level 0.19 L ABG pH POC ABG pO2 ABG pO2 ABG HCO3 ABG O2 Saturation ABG Base Excess POC ABG pCO2 ABG Hemoglobin ABG Oxyhemoglobin ABG Chloride ABG Glucose Oxyhemoglobin Sodium Potassium Chloride Carbon Dioxide BUN Creatinine Glucose POC Glucose 158 H 155 H Lactic Acid Calcium Phosphorus Magnesium AST ALT Lactate Dehydrogenase Total Bilirubin Direct Bilirubin CK-MB (CK-2) C-Reactive Protein NT-Pro-B Natriuret Pep Total Protein Albumin Arterial Blood Glucose Urine WBC (Auto) Urine Creatinine 12/27/19 12/28/19 12/28/19 23:45 02:41 02:41 WBC 13.0 H RBC 3.48 L Hgb 9.5 L Hct 30.6 L MCHC 31 L RDW 16.6 H MCV MCH 27 L Lymph % (Auto) 13.0 L [place] % (Auto) 8.0 H [place] # Eos # Lymph # (Auto) [place] # (Auto) 1.0 H Eos # (Auto) Seg Neutrophils % 76.3 H Seg Neuts % (Manual) Baso # (Auto) Lymphocytes % (Manual) Monocytes % (Manual) Eosinophils % (Manual) Basophils % (Manual) Seg Neutrophils # 9.9 H Seg Neutrophils # Man Lymphocytes # (Manual) Monocytes # (Manual) Eosinophils # (Manual) Nucleated RBC % Basophils # (Manual) PT INR APTT Heparin Anti-Xa Level ABG pH POC ABG pO2 ABG pO2 ABG HCO3 ABG O2 Saturation ABG Base Excess POC ABG pCO2 ABG Hemoglobin ABG Oxyhemoglobin ABG Chloride ABG Glucose Oxyhemoglobin Sodium Potassium Chloride Carbon Dioxide BUN 22 H Creatinine 0.6 L Glucose 101 H POC Glucose 130 H Lactic Acid Calcium Phosphorus Magnesium AST ALT Lactate Dehydrogenase Total Bilirubin Direct Bilirubin CK-MB (CK-2) C-Reactive Protein NT-Pro-B Natriuret Pep Total Protein Albumin Arterial Blood Glucose Urine WBC (Auto) Urine Creatinine 12/28/19 12/28/19 12/28/19 06:00 12:34 18:13 WBC RBC Hgb Hct MCHC RDW MCV MCH Lymph % (Auto) [place] % (Auto) [place] # Eos # Lymph # (Auto) [place] # (Auto) Eos # (Auto) Seg Neutrophils % Seg Neuts % (Manual) Baso # (Auto) Lymphocytes % (Manual) Monocytes % (Manual) Eosinophils % (Manual) Basophils % (Manual) Seg Neutrophils # Seg Neutrophils # Man Lymphocytes # (Manual) Monocytes # (Manual) Eosinophils # (Manual) Nucleated RBC % Basophils # (Manual) PT INR APTT Heparin Anti-Xa Level ABG pH POC ABG pO2 ABG pO2 ABG HCO3 ABG O2 Saturation ABG Base Excess POC ABG pCO2 ABG Hemoglobin ABG Oxyhemoglobin ABG Chloride ABG Glucose Oxyhemoglobin Sodium Potassium Chloride Carbon Dioxide BUN Creatinine Glucose POC Glucose 150 H 161 H 128 H Lactic Acid Calcium Phosphorus Magnesium AST ALT Lactate Dehydrogenase Total Bilirubin Direct Bilirubin CK-MB (CK-2) C-Reactive Protein NT-Pro-B Natriuret Pep Total Protein Albumin Arterial Blood Glucose Urine WBC (Auto) Urine Creatinine 12/28/19 12/29/19 12/29/19 23:36 05:21 11:40 WBC RBC Hgb Hct MCHC RDW MCV MCH Lymph % (Auto) [place] % (Auto) [place] # Eos # Lymph # (Auto) [place] # (Auto) Eos # (Auto) Seg Neutrophils % Seg Neuts % (Manual) Baso # (Auto) Lymphocytes % (Manual) Monocytes % (Manual) Eosinophils % (Manual) Basophils % (Manual) Seg Neutrophils # Seg Neutrophils # Man Lymphocytes # (Manual) Monocytes # (Manual) Eosinophils # (Manual) Nucleated RBC % Basophils # (Manual) PT INR APTT Heparin Anti-Xa Level ABG pH POC ABG pO2 ABG pO2 ABG HCO3 ABG O2 Saturation ABG Base Excess POC ABG pCO2 ABG Hemoglobin ABG Oxyhemoglobin ABG Chloride ABG Glucose Oxyhemoglobin Sodium Potassium Chloride Carbon Dioxide BUN Creatinine Glucose POC Glucose 137 H 136 H 166 H Lactic Acid Calcium Phosphorus Magnesium AST ALT Lactate Dehydrogenase Total Bilirubin Direct Bilirubin CK-MB (CK-2) C-Reactive Protein NT-Pro-B Natriuret Pep Total Protein Albumin Arterial Blood Glucose Urine WBC (Auto) Urine Creatinine 12/29/19 12/29/19 12/29/19 17:23 19:21 23:38 WBC RBC Hgb Hct MCHC RDW MCV MCH Lymph % (Auto) [place] % (Auto) [place] # Eos # Lymph # (Auto) [place] # (Auto) Eos # (Auto) Seg Neutrophils % Seg Neuts % (Manual) Baso # (Auto) Lymphocytes % (Manual) Monocytes % (Manual) Eosinophils % (Manual) Basophils % (Manual) Seg Neutrophils # Seg Neutrophils # Man Lymphocytes # (Manual) Monocytes # (Manual) Eosinophils # (Manual) Nucleated RBC % Basophils # (Manual) PT INR APTT Heparin Anti-Xa Level 0.20 L ABG pH POC ABG pO2 ABG pO2 ABG HCO3 ABG O2 Saturation ABG Base Excess POC ABG pCO2 ABG Hemoglobin ABG Oxyhemoglobin ABG Chloride ABG Glucose Oxyhemoglobin Sodium Potassium Chloride Carbon Dioxide BUN Creatinine Glucose POC Glucose 144 H 141 H Lactic Acid Calcium Phosphorus Magnesium AST ALT Lactate Dehydrogenase Total Bilirubin Direct Bilirubin CK-MB (CK-2) C-Reactive Protein NT-Pro-B Natriuret Pep Total Protein Albumin Arterial Blood Glucose Urine WBC (Auto) Urine Creatinine 12/30/19 12/30/19 12/30/19 03:58 03:58 04:59 WBC RBC 3.54 L Hgb 9.8 L Hct 30.7 L MCHC RDW 16.8 H MCV MCH Lymph % (Auto) [place] % (Auto) [place] # Eos # Lymph # (Auto) [place] # (Auto) Eos # (Auto) Seg Neutrophils % Seg Neuts % (Manual) Baso # (Auto) Lymphocytes % (Manual) Monocytes % (Manual) Eosinophils % (Manual) Basophils % (Manual) Seg Neutrophils # Seg Neutrophils # Man Lymphocytes # (Manual) Monocytes # (Manual) Eosinophils # (Manual) Nucleated RBC % Basophils # (Manual) PT INR APTT Heparin Anti-Xa Level ABG pH POC ABG pO2 ABG pO2 ABG HCO3 29.8 H ABG O2 Saturation ABG Base Excess 4.8 H POC ABG pCO2 ABG Hemoglobin 11.2 L ABG Oxyhemoglobin ABG Chloride ABG Glucose Oxyhemoglobin 93.8 L Sodium Potassium Chloride 97.8 L Carbon Dioxide BUN 26 H Creatinine Glucose 168 H POC Glucose Lactic Acid Calcium Phosphorus Magnesium AST ALT Lactate Dehydrogenase Total Bilirubin Direct Bilirubin CK-MB (CK-2) C-Reactive Protein NT-Pro-B Natriuret Pep Total Protein Albumin Arterial Blood Glucose Urine WBC (Auto) Urine Creatinine 12/30/19 12/30/19 12/30/19 05:45 11:34 17:28 WBC RBC Hgb Hct MCHC RDW MCV MCH Lymph % (Auto) [place] % (Auto) [place] # Eos # Lymph # (Auto) [place] # (Auto) Eos # (Auto) Seg Neutrophils % Seg Neuts % (Manual) Baso # (Auto) Lymphocytes % (Manual) Monocytes % (Manual) Eosinophils % (Manual) Basophils % (Manual) Seg Neutrophils # Seg Neutrophils # Man Lymphocytes # (Manual) Monocytes # (Manual) Eosinophils # (Manual) Nucleated RBC % Basophils # (Manual) PT INR APTT Heparin Anti-Xa Level ABG pH POC ABG pO2 ABG pO2 ABG HCO3 ABG O2 Saturation ABG Base Excess POC ABG pCO2 ABG Hemoglobin ABG Oxyhemoglobin ABG Chloride ABG Glucose Oxyhemoglobin Sodium Potassium Chloride Carbon Dioxide BUN Creatinine Glucose POC Glucose 163 H 180 H 150 H Lactic Acid Calcium Phosphorus Magnesium AST ALT Lactate Dehydrogenase Total Bilirubin Direct Bilirubin CK-MB (CK-2) C-Reactive Protein NT-Pro-B Natriuret Pep Total Protein Albumin Arterial Blood Glucose Urine WBC (Auto) Urine Creatinine 12/30/19 12/31/19 12/31/19 23:43 04:55 05:07 WBC RBC Hgb Hct MCHC RDW MCV MCH Lymph % (Auto) [place] % (Auto) [place] # Eos # Lymph # (Auto) [place] # (Auto) Eos # (Auto) Seg Neutrophils % Seg Neuts % (Manual) Baso # (Auto) Lymphocytes % (Manual) Monocytes % (Manual) Eosinophils % (Manual) Basophils % (Manual) Seg Neutrophils # Seg Neutrophils # Man Lymphocytes # (Manual) Monocytes # (Manual) Eosinophils # (Manual) Nucleated RBC % Basophils # (Manual) PT INR APTT Heparin Anti-Xa Level ABG pH POC ABG pO2 ABG pO2 ABG HCO3 ABG O2 Saturation ABG Base Excess POC ABG pCO2 ABG Hemoglobin ABG Oxyhemoglobin ABG Chloride ABG Glucose Oxyhemoglobin Sodium Potassium 5.6 H D Chloride Carbon Dioxide BUN 33 H Creatinine Glucose 131 H POC Glucose 142 H 134 H Lactic Acid Calcium Phosphorus Magnesium AST ALT Lactate Dehydrogenase Total Bilirubin Direct Bilirubin CK-MB (CK-2) C-Reactive Protein NT-Pro-B Natriuret Pep Total Protein Albumin Arterial Blood Glucose Urine WBC (Auto) Urine Creatinine 12/31/19 12/31/19 12/31/19 11:30 17:19 17:36 WBC RBC Hgb Hct MCHC RDW MCV MCH Lymph % (Auto) [place] % (Auto) [place] # Eos # Lymph # (Auto) [place] # (Auto) Eos # (Auto) Seg Neutrophils % Seg Neuts % (Manual) Baso # (Auto) Lymphocytes % (Manual) Monocytes % (Manual) Eosinophils % (Manual) Basophils % (Manual) Seg Neutrophils # Seg Neutrophils # Man Lymphocytes # (Manual) Monocytes # (Manual) Eosinophils # (Manual) Nucleated RBC % Basophils # (Manual) PT INR APTT Heparin Anti-Xa Level ABG pH POC ABG pO2 ABG pO2 ABG HCO3 ABG O2 Saturation ABG Base Excess POC ABG pCO2 ABG Hemoglobin ABG Oxyhemoglobin ABG Chloride ABG Glucose Oxyhemoglobin Sodium Potassium Chloride Carbon Dioxide BUN 35 H Creatinine Glucose 156 H POC Glucose 158 H 181 H Lactic Acid Calcium Phosphorus Magnesium AST ALT Lactate Dehydrogenase Total Bilirubin Direct Bilirubin CK-MB (CK-2) C-Reactive Protein NT-Pro-B Natriuret Pep Total Protein Albumin Arterial Blood Glucose Urine WBC (Auto) Urine Creatinine 12/31/19 12/31/19 12/31/19 18:16 19:41 21:53 WBC RBC Hgb Hct MCHC RDW MCV MCH Lymph % (Auto) [place] % (Auto) [place] # Eos # Lymph # (Auto) [place] # (Auto) Eos # (Auto) Seg Neutrophils % Seg Neuts % (Manual) Baso # (Auto) Lymphocytes % (Manual) Monocytes % (Manual) Eosinophils % (Manual) Basophils % (Manual) Seg Neutrophils # Seg Neutrophils # Man Lymphocytes # (Manual) Monocytes # (Manual) Eosinophils # (Manual) Nucleated RBC % Basophils # (Manual) PT INR APTT Heparin Anti-Xa Level 0.20 L ABG pH POC ABG pO2 ABG pO2 ABG HCO3 ABG O2 Saturation ABG Base Excess POC ABG pCO2 ABG Hemoglobin ABG Oxyhemoglobin ABG Chloride ABG Glucose Oxyhemoglobin Sodium Potassium Chloride Carbon Dioxide BUN 34 H Creatinine Glucose 169 H POC Glucose 141 H Lactic Acid Calcium Phosphorus Magnesium AST ALT Lactate Dehydrogenase Total Bilirubin Direct Bilirubin CK-MB (CK-2) C-Reactive Protein NT-Pro-B Natriuret Pep Total Protein Albumin Arterial Blood Glucose Urine WBC (Auto) Urine Creatinine 12/31/19 01/01/20 01/01/20 23:51 05:17 10:40 WBC RBC Hgb Hct MCHC RDW MCV MCH Lymph % (Auto) [place] % (Auto) [place] # Eos # Lymph # (Auto) [place] # (Auto) Eos # (Auto) Seg Neutrophils % Seg Neuts % (Manual) Baso # (Auto) Lymphocytes % (Manual) Monocytes % (Manual) Eosinophils % (Manual) Basophils % (Manual) Seg Neutrophils # Seg Neutrophils # Man Lymphocytes # (Manual) Monocytes # (Manual) Eosinophils # (Manual) Nucleated RBC % Basophils # (Manual) PT INR APTT Heparin Anti-Xa Level ABG pH POC ABG pO2 ABG pO2 ABG HCO3 ABG O2 Saturation ABG Base Excess POC ABG pCO2 ABG Hemoglobin ABG Oxyhemoglobin ABG Chloride ABG Glucose Oxyhemoglobin Sodium Potassium Chloride Carbon Dioxide BUN 31 H Creatinine 0.7 L Glucose 137 H POC Glucose 131 H 155 H Lactic Acid Calcium Phosphorus Magnesium AST 73 H ALT 97 H Lactate Dehydrogenase Total Bilirubin Direct Bilirubin CK-MB (CK-2) C-Reactive Protein NT-Pro-B Natriuret Pep 3866 H Total Protein Albumin 2.8 L Arterial Blood Glucose Urine WBC (Auto) Urine Creatinine 01/01/20 01/01/20 01/01/20 12:26 15:33 17:53 WBC 14.3 H RBC 3.35 L Hgb 9.1 L Hct 28.8 L MCHC RDW 17.0 H MCV MCH 27 L Lymph % (Auto) 7.0 L [place] % (Auto) 7.6 H [place] # Eos # Lymph # (Auto) 1.0 L [place] # (Auto) 1.1 H Eos # (Auto) Seg Neutrophils % 83.3 H Seg Neuts % (Manual) Baso # (Auto) Lymphocytes % (Manual) Monocytes % (Manual) Eosinophils % (Manual) Basophils % (Manual) Seg Neutrophils # 12.0 H Seg Neutrophils # Man Lymphocytes # (Manual) Monocytes # (Manual) Eosinophils # (Manual) Nucleated RBC % Basophils # (Manual) PT INR APTT Heparin Anti-Xa Level ABG pH POC ABG pO2 ABG pO2 ABG HCO3 ABG O2 Saturation ABG Base Excess POC ABG pCO2 ABG Hemoglobin ABG Oxyhemoglobin ABG Chloride ABG Glucose Oxyhemoglobin Sodium Potassium Chloride Carbon Dioxide BUN Creatinine Glucose POC Glucose 128 H 128 H Lactic Acid Calcium Phosphorus Magnesium AST ALT Lactate Dehydrogenase Total Bilirubin Direct Bilirubin CK-MB (CK-2) C-Reactive Protein NT-Pro-B Natriuret Pep Total Protein Albumin Arterial Blood Glucose Urine WBC (Auto) Urine Creatinine 01/01/20 01/02/20 01/02/20 23:04 05:39 07:00 WBC RBC Hgb Hct MCHC RDW MCV MCH Lymph % (Auto) [place] % (Auto) [place] # Eos # Lymph # (Auto) [place] # (Auto) Eos # (Auto) Seg Neutrophils % Seg Neuts % (Manual) Baso # (Auto) Lymphocytes % (Manual) Monocytes % (Manual) Eosinophils % (Manual) Basophils % (Manual) Seg Neutrophils # Seg Neutrophils # Man Lymphocytes # (Manual) Monocytes # (Manual) Eosinophils # (Manual) Nucleated RBC % Basophils # (Manual) PT INR APTT Heparin Anti-Xa Level 0.13 L ABG pH POC ABG pO2 ABG pO2 ABG HCO3 ABG O2 Saturation ABG Base Excess POC ABG pCO2 ABG Hemoglobin ABG Oxyhemoglobin ABG Chloride ABG Glucose Oxyhemoglobin Sodium Potassium Chloride Carbon Dioxide BUN Creatinine Glucose POC Glucose 120 H 169 H Lactic Acid Calcium Phosphorus Magnesium AST ALT Lactate Dehydrogenase Total Bilirubin Direct Bilirubin CK-MB (CK-2) C-Reactive Protein NT-Pro-B Natriuret Pep Total Protein Albumin Arterial Blood Glucose Urine WBC (Auto) Urine Creatinine 01/02/20 01/02/20 01/02/20 12:15 14:06 17:58 WBC RBC Hgb Hct MCHC RDW MCV MCH Lymph % (Auto) [place] % (Auto) [place] # Eos # Lymph # (Auto) [place] # (Auto) Eos # (Auto) Seg Neutrophils % Seg Neuts % (Manual) Baso # (Auto) Lymphocytes % (Manual) Monocytes % (Manual) Eosinophils % (Manual) Basophils % (Manual) Seg Neutrophils # Seg Neutrophils # Man Lymphocytes # (Manual) Monocytes # (Manual) Eosinophils # (Manual) Nucleated RBC % Basophils # (Manual) PT INR APTT Heparin Anti-Xa Level < 0.10 L ABG pH POC ABG pO2 ABG pO2 ABG HCO3 ABG O2 Saturation ABG Base Excess POC ABG pCO2 ABG Hemoglobin ABG Oxyhemoglobin ABG Chloride ABG Glucose Oxyhemoglobin Sodium Potassium Chloride Carbon Dioxide BUN Creatinine Glucose POC Glucose 190 H 198 H Lactic Acid Calcium Phosphorus Magnesium AST ALT Lactate Dehydrogenase Total Bilirubin Direct Bilirubin CK-MB (CK-2) C-Reactive Protein NT-Pro-B Natriuret Pep Total Protein Albumin Arterial Blood Glucose Urine WBC (Auto) Urine Creatinine 01/02/20 01/02/20 01/03/20 21:43 23:33 05:42 WBC RBC Hgb Hct MCHC RDW MCV MCH Lymph % (Auto) [place] % (Auto) [place] # Eos # Lymph # (Auto) [place] # (Auto) Eos # (Auto) Seg Neutrophils % Seg Neuts % (Manual) Baso # (Auto) Lymphocytes % (Manual) Monocytes % (Manual) Eosinophils % (Manual) Basophils % (Manual) Seg Neutrophils # Seg Neutrophils # Man Lymphocytes # (Manual) Monocytes # (Manual) Eosinophils # (Manual) Nucleated RBC % Basophils # (Manual) PT INR APTT Heparin Anti-Xa Level 0.10 L ABG pH POC ABG pO2 ABG pO2 ABG HCO3 ABG O2 Saturation ABG Base Excess POC ABG pCO2 ABG Hemoglobin ABG Oxyhemoglobin ABG Chloride ABG Glucose Oxyhemoglobin Sodium Potassium Chloride Carbon Dioxide BUN Creatinine Glucose POC Glucose 180 H 163 H Lactic Acid Calcium Phosphorus Magnesium AST ALT Lactate Dehydrogenase Total Bilirubin Direct Bilirubin CK-MB (CK-2) C-Reactive Protein NT-Pro-B Natriuret Pep Total Protein Albumin Arterial Blood Glucose Urine WBC (Auto) Urine Creatinine 01/03/20 01/03/20 01/03/20 06:50 07:25 07:45 WBC 12.1 H RBC 3.35 L Hgb 9.0 L Hct 28.9 L MCHC 31 L RDW 16.6 H MCV MCH 27 L Lymph % (Auto) 13.0 L [place] % (Auto) 8.6 H [place] # Eos # Lymph # (Auto) [place] # (Auto) 1.0 H Eos # (Auto) Seg Neutrophils % 75.9 H Seg Neuts % (Manual) Baso # (Auto) Lymphocytes % (Manual) Monocytes % (Manual) Eosinophils % (Manual) Basophils % (Manual) Seg Neutrophils # 9.2 H Seg Neutrophils # Man Lymphocytes # (Manual) Monocytes # (Manual) Eosinophils # (Manual) Nucleated RBC % Basophils # (Manual) PT INR APTT Heparin Anti-Xa Level 0.29 L ABG pH POC ABG pO2 ABG pO2 ABG HCO3 ABG O2 Saturation ABG Base Excess POC ABG pCO2 ABG Hemoglobin ABG Oxyhemoglobin ABG Chloride ABG Glucose Oxyhemoglobin Sodium Potassium 3.3 L D Chloride Carbon Dioxide 35 H D BUN 23 H Creatinine 0.6 L Glucose 149 H POC Glucose Lactic Acid Calcium Phosphorus Magnesium AST ALT 88 H Lactate Dehydrogenase Total Bilirubin Direct Bilirubin CK-MB (CK-2) C-Reactive Protein NT-Pro-B Natriuret Pep Total Protein 6.2 L Albumin 2.9 L Arterial Blood Glucose Urine WBC (Auto) Urine Creatinine 01/03/20 01/03/20 01/03/20 12:05 17:42 18:30 WBC RBC Hgb Hct MCHC RDW MCV MCH Lymph % (Auto) [place] % (Auto) [place] # Eos # Lymph # (Auto) [place] # (Auto) Eos # (Auto) Seg Neutrophils % Seg Neuts % (Manual) Baso # (Auto) Lymphocytes % (Manual) Monocytes % (Manual) Eosinophils % (Manual) Basophils % (Manual) Seg Neutrophils # Seg Neutrophils # Man Lymphocytes # (Manual) Monocytes # (Manual) Eosinophils # (Manual) Nucleated RBC % Basophils # (Manual) PT INR APTT Heparin Anti-Xa Level ABG pH POC ABG pO2 ABG pO2 70.7 L ABG HCO3 36.1 H ABG O2 Saturation 94.4 L ABG Base Excess 10.0 H POC ABG pCO2 ABG Hemoglobin 9.7 L ABG Oxyhemoglobin ABG Chloride ABG Glucose Oxyhemoglobin 91.8 L Sodium Potassium Chloride Carbon Dioxide BUN Creatinine Glucose POC Glucose 128 H 132 H Lactic Acid Calcium Phosphorus Magnesium AST ALT Lactate Dehydrogenase Total Bilirubin Direct Bilirubin CK-MB (CK-2) C-Reactive Protein NT-Pro-B Natriuret Pep Total Protein Albumin Arterial Blood Glucose Urine WBC (Auto) Urine Creatinine 01/04/20 01/04/20 01/04/20 00:10 04:26 05:23 WBC RBC Hgb Hct MCHC RDW MCV MCH Lymph % (Auto) [place] % (Auto) [place] # Eos # Lymph # (Auto) [place] # (Auto) Eos # (Auto) Seg Neutrophils % Seg Neuts % (Manual) Baso # (Auto) Lymphocytes % (Manual) Monocytes % (Manual) Eosinophils % (Manual) Basophils % (Manual) Seg Neutrophils # Seg Neutrophils # Man Lymphocytes # (Manual) Monocytes # (Manual) Eosinophils # (Manual) Nucleated RBC % Basophils # (Manual) PT INR APTT Heparin Anti-Xa Level 0.16 L ABG pH POC ABG pO2 ABG pO2 ABG HCO3 ABG O2 Saturation ABG Base Excess POC ABG pCO2 ABG Hemoglobin ABG Oxyhemoglobin ABG Chloride ABG Glucose Oxyhemoglobin Sodium Potassium Chloride Carbon Dioxide BUN Creatinine Glucose POC Glucose 121 H 119 H Lactic Acid Calcium Phosphorus Magnesium AST ALT Lactate Dehydrogenase Total Bilirubin Direct Bilirubin CK-MB (CK-2) C-Reactive Protein NT-Pro-B Natriuret Pep Total Protein Albumin Arterial Blood Glucose Urine WBC (Auto) Urine Creatinine 01/04/20 01/04/20 01/04/20 09:50 09:50 12:18 WBC 15.4 H RBC 3.30 L Hgb 8.7 L Hct 28.2 L MCHC 31 L RDW 17.0 H MCV MCH 26 L Lymph % (Auto) [place] % (Auto) 7.6 H [place] # Eos # Lymph # (Auto) [place] # (Auto) 1.2 H Eos # (Auto) Seg Neutrophils % 75.4 H Seg Neuts % (Manual) Baso # (Auto) Lymphocytes % (Manual) Monocytes % (Manual) Eosinophils % (Manual) Basophils % (Manual) Seg Neutrophils # 11.6 H Seg Neutrophils # Man Lymphocytes # (Manual) Monocytes # (Manual) Eosinophils # (Manual) Nucleated RBC % Basophils # (Manual) PT INR APTT Heparin Anti-Xa Level ABG pH POC ABG pO2 ABG pO2 ABG HCO3 ABG O2 Saturation ABG Base Excess POC ABG pCO2 ABG Hemoglobin ABG Oxyhemoglobin ABG Chloride ABG Glucose Oxyhemoglobin Sodium 148 H Potassium 3.5 L Chloride Carbon Dioxide 32 H BUN Creatinine 0.6 L Glucose 114 H POC Glucose 111 H Lactic Acid Calcium Phosphorus Magnesium AST ALT 59 H Lactate Dehydrogenase Total Bilirubin Direct Bilirubin CK-MB (CK-2) C-Reactive Protein NT-Pro-B Natriuret Pep Total Protein Albumin 2.6 L Arterial Blood Glucose Urine WBC (Auto) Urine Creatinine 01/05/20 01/05/20 01/05/20 04:05 04:05 05:19 WBC 11.7 H RBC 3.50 L Hgb 9.3 L Hct 29.9 L MCHC 31 L RDW 16.6 H MCV MCH 27 L Lymph % (Auto) 13.1 L [place] % (Auto) 9.7 H [place] # Eos # Lymph # (Auto) [place] # (Auto) 1.1 H Eos # (Auto) Seg Neutrophils % 74.0 H Seg Neuts % (Manual) Baso # (Auto) Lymphocytes % (Manual) Monocytes % (Manual) Eosinophils % (Manual) Basophils % (Manual) Seg Neutrophils # 8.6 H Seg Neutrophils # Man Lymphocytes # (Manual) Monocytes # (Manual) Eosinophils # (Manual) Nucleated RBC % Basophils # (Manual) PT INR APTT Heparin Anti-Xa Level ABG pH POC ABG pO2 ABG pO2 ABG HCO3 ABG O2 Saturation ABG Base Excess POC ABG pCO2 ABG Hemoglobin ABG Oxyhemoglobin ABG Chloride ABG Glucose Oxyhemoglobin Sodium 151 H Potassium Chloride Carbon Dioxide 34 H BUN Creatinine 0.7 L Glucose POC Glucose 112 H Lactic Acid Calcium Phosphorus Magnesium AST ALT 59 H Lactate Dehydrogenase Total Bilirubin Direct Bilirubin CK-MB (CK-2) C-Reactive Protein NT-Pro-B Natriuret Pep Total Protein 5.8 L Albumin 2.6 L Arterial Blood Glucose Urine WBC (Auto) Urine Creatinine 01/05/20 01/06/20 01/06/20 16:04 00:23 04:44 WBC RBC 3.36 L Hgb 8.9 L Hct 28.7 L MCHC 31 L RDW 16.9 H MCV MCH 26 L Lymph % (Auto) [place] % (Auto) 9.4 H [place] # Eos # Lymph # (Auto) [place] # (Auto) Eos # (Auto) Seg Neutrophils % Seg Neuts % (Manual) Baso # (Auto) Lymphocytes % (Manual) Monocytes % (Manual) Eosinophils % (Manual) Basophils % (Manual) Seg Neutrophils # Seg Neutrophils # Man Lymphocytes # (Manual) Monocytes # (Manual) Eosinophils # (Manual) Nucleated RBC % Basophils # (Manual) PT INR APTT Heparin Anti-Xa Level ABG pH POC ABG pO2 ABG pO2 ABG HCO3 ABG O2 Saturation ABG Base Excess POC ABG pCO2 ABG Hemoglobin ABG Oxyhemoglobin ABG Chloride ABG Glucose Oxyhemoglobin Sodium 151 H Potassium 3.2 L Chloride Carbon Dioxide 34 H BUN Creatinine 0.6 L Glucose POC Glucose 107 H Lactic Acid Calcium Phosphorus Magnesium AST ALT Lactate Dehydrogenase Total Bilirubin Direct Bilirubin CK-MB (CK-2) C-Reactive Protein NT-Pro-B Natriuret Pep Total Protein Albumin Arterial Blood Glucose Urine WBC (Auto) Urine Creatinine 01/06/20 01/06/20 01/06/20 04:44 05:33 12:04 WBC RBC Hgb Hct MCHC RDW MCV MCH Lymph % (Auto) [place] % (Auto) [place] # Eos # Lymph # (Auto) [place] # (Auto) Eos # (Auto) Seg Neutrophils % Seg Neuts % (Manual) Baso # (Auto) Lymphocytes % (Manual) Monocytes % (Manual) Eosinophils % (Manual) Basophils % (Manual) Seg Neutrophils # Seg Neutrophils # Man Lymphocytes # (Manual) Monocytes # (Manual) Eosinophils # (Manual) Nucleated RBC % Basophils # (Manual) PT INR APTT Heparin Anti-Xa Level ABG pH POC ABG pO2 ABG pO2 ABG HCO3 ABG O2 Saturation ABG Base Excess POC ABG pCO2 ABG Hemoglobin ABG Oxyhemoglobin ABG Chloride ABG Glucose Oxyhemoglobin Sodium 151 H Potassium 3.4 L Chloride Carbon Dioxide 33 H BUN Creatinine 0.6 L Glucose 118 H POC Glucose 118 H 123 H Lactic Acid Calcium Phosphorus Magnesium AST ALT Lactate Dehydrogenase Total Bilirubin Direct Bilirubin CK-MB (CK-2) C-Reactive Protein NT-Pro-B Natriuret Pep Total Protein 6.2 L Albumin 2.6 L Arterial Blood Glucose Urine WBC (Auto) Urine Creatinine 01/06/20 01/07/20 01/07/20 17:54 00:06 04:10 WBC RBC 3.42 L Hgb 8.9 L Hct 29.0 L MCHC 31 L RDW 17.1 H MCV MCH 26 L Lymph % (Auto) [place] % (Auto) 8.4 H [place] # Eos # Lymph # (Auto) [place] # (Auto) Eos # (Auto) Seg Neutrophils % Seg Neuts % (Manual) Baso # (Auto) Lymphocytes % (Manual) Monocytes % (Manual) Eosinophils % (Manual) Basophils % (Manual) Seg Neutrophils # Seg Neutrophils # Man Lymphocytes # (Manual) Monocytes # (Manual) Eosinophils # (Manual) Nucleated RBC % Basophils # (Manual) PT INR APTT Heparin Anti-Xa Level ABG pH POC ABG pO2 ABG pO2 ABG HCO3 ABG O2 Saturation ABG Base Excess POC ABG pCO2 ABG Hemoglobin ABG Oxyhemoglobin ABG Chloride ABG Glucose Oxyhemoglobin Sodium Potassium Chloride Carbon Dioxide BUN Creatinine Glucose POC Glucose 112 H 126 H Lactic Acid Calcium Phosphorus Magnesium AST ALT Lactate Dehydrogenase Total Bilirubin Direct Bilirubin CK-MB (CK-2) C-Reactive Protein NT-Pro-B Natriuret Pep Total Protein Albumin Arterial Blood Glucose Urine WBC (Auto) Urine Creatinine 01/07/20 01/07/20 01/07/20 04:10 05:59 12:27 WBC RBC Hgb Hct MCHC RDW MCV MCH Lymph % (Auto) [place] % (Auto) [place] # Eos # Lymph # (Auto) [place] # (Auto) Eos # (Auto) Seg Neutrophils % Seg Neuts % (Manual) Baso # (Auto) Lymphocytes % (Manual) Monocytes % (Manual) Eosinophils % (Manual) Basophils % (Manual) Seg Neutrophils # Seg Neutrophils # Man Lymphocytes # (Manual) Monocytes # (Manual) Eosinophils # (Manual) Nucleated RBC % Basophils # (Manual) PT INR APTT Heparin Anti-Xa Level ABG pH POC ABG pO2 ABG pO2 ABG HCO3 ABG O2 Saturation ABG Base Excess POC ABG pCO2 ABG Hemoglobin ABG Oxyhemoglobin ABG Chloride ABG Glucose Oxyhemoglobin Sodium 153 H Potassium 3.5 L Chloride Carbon Dioxide 34 H BUN Creatinine 0.6 L Glucose 121 H POC Glucose 121 H 126 H Lactic Acid Calcium Phosphorus Magnesium AST ALT Lactate Dehydrogenase Total Bilirubin Direct Bilirubin CK-MB (CK-2) C-Reactive Protein NT-Pro-B Natriuret Pep Total Protein 5.9 L Albumin 2.4 L Arterial Blood Glucose Urine WBC (Auto) Urine Creatinine 01/07/20 01/08/20 01/08/20 18:12 00:03 05:41 WBC RBC Hgb Hct MCHC RDW MCV MCH Lymph % (Auto) [place] % (Auto) [place] # Eos # Lymph # (Auto) [place] # (Auto) Eos # (Auto) Seg Neutrophils % Seg Neuts % (Manual) Baso # (Auto) Lymphocytes % (Manual) Monocytes % (Manual) Eosinophils % (Manual) Basophils % (Manual) Seg Neutrophils # Seg Neutrophils # Man Lymphocytes # (Manual) Monocytes # (Manual) Eosinophils # (Manual) Nucleated RBC % Basophils # (Manual) PT INR APTT Heparin Anti-Xa Level ABG pH POC ABG pO2 ABG pO2 ABG HCO3 ABG O2 Saturation ABG Base Excess POC ABG pCO2 ABG Hemoglobin ABG Oxyhemoglobin ABG Chloride ABG Glucose Oxyhemoglobin Sodium Potassium Chloride Carbon Dioxide BUN Creatinine Glucose POC Glucose 124 H 130 H 138 H Lactic Acid Calcium Phosphorus Magnesium AST ALT Lactate Dehydrogenase Total Bilirubin Direct Bilirubin CK-MB (CK-2) C-Reactive Protein NT-Pro-B Natriuret Pep Total Protein Albumin Arterial Blood Glucose Urine WBC (Auto) Urine Creatinine 01/08/20 01/08/20 01/08/20 09:28 11:42 18:21 WBC RBC Hgb Hct MCHC RDW MCV MCH Lymph % (Auto) [place] % (Auto) [place] # Eos # Lymph # (Auto) [place] # (Auto) Eos # (Auto) Seg Neutrophils % Seg Neuts % (Manual) Baso # (Auto) Lymphocytes % (Manual) Monocytes % (Manual) Eosinophils % (Manual) Basophils % (Manual) Seg Neutrophils # Seg Neutrophils # Man Lymphocytes # (Manual) Monocytes # (Manual) Eosinophils # (Manual) Nucleated RBC % Basophils # (Manual) PT INR APTT Heparin Anti-Xa Level ABG pH POC ABG pO2 ABG pO2 ABG HCO3 ABG O2 Saturation ABG Base Excess POC ABG pCO2 ABG Hemoglobin ABG Oxyhemoglobin ABG Chloride ABG Glucose Oxyhemoglobin Sodium Potassium Chloride Carbon Dioxide BUN Creatinine Glucose POC Glucose 181 H 150 H 129 H Lactic Acid Calcium Phosphorus Magnesium AST ALT Lactate Dehydrogenase Total Bilirubin Direct Bilirubin CK-MB (CK-2) C-Reactive Protein NT-Pro-B Natriuret Pep Total Protein Albumin Arterial Blood Glucose Urine WBC (Auto) Urine Creatinine 01/08/20 01/08/20 01/09/20 19:25 23:55 04:11 WBC RBC 3.43 L Hgb 8.9 L Hct 28.7 L MCHC 31 L RDW 17.6 H MCV MCH 26 L Lymph % (Auto) [place] % (Auto) 8.6 H [place] # Eos # Lymph # (Auto) [place] # (Auto) Eos # (Auto) Seg Neutrophils % Seg Neuts % (Manual) Baso # (Auto) Lymphocytes % (Manual) Monocytes % (Manual) Eosinophils % (Manual) Basophils % (Manual) Seg Neutrophils # Seg Neutrophils # Man Lymphocytes # (Manual) Monocytes # (Manual) Eosinophils # (Manual) Nucleated RBC % Basophils # (Manual) PT INR APTT Heparin Anti-Xa Level ABG pH POC ABG pO2 ABG pO2 ABG HCO3 ABG O2 Saturation ABG Base Excess POC ABG pCO2 ABG Hemoglobin ABG Oxyhemoglobin ABG Chloride ABG Glucose Oxyhemoglobin Sodium Potassium Chloride Carbon Dioxide BUN Creatinine 0.7 L Glucose 117 H POC Glucose 132 H Lactic Acid Calcium Phosphorus Magnesium AST ALT Lactate Dehydrogenase Total Bilirubin Direct Bilirubin CK-MB (CK-2) C-Reactive Protein NT-Pro-B Natriuret Pep Total Protein Albumin Arterial Blood Glucose Urine WBC (Auto) Urine Creatinine 01/09/20 01/09/20 01/09/20 04:11 05:38 22:58 WBC RBC Hgb Hct MCHC RDW MCV MCH Lymph % (Auto) [place] % (Auto) [place] # Eos # Lymph # (Auto) [place] # (Auto) Eos # (Auto) Seg Neutrophils % Seg Neuts % (Manual) Baso # (Auto) Lymphocytes % (Manual) Monocytes % (Manual) Eosinophils % (Manual) Basophils % (Manual) Seg Neutrophils # Seg Neutrophils # Man Lymphocytes # (Manual) Monocytes # (Manual) Eosinophils # (Manual) Nucleated RBC % Basophils # (Manual) PT INR APTT Heparin Anti-Xa Level ABG pH POC ABG pO2 ABG pO2 ABG HCO3 ABG O2 Saturation ABG Base Excess POC ABG pCO2 ABG Hemoglobin ABG Oxyhemoglobin ABG Chloride ABG Glucose Oxyhemoglobin Sodium 147 H Potassium 3.3 L D Chloride Carbon Dioxide 32 H BUN Creatinine 0.6 L Glucose 106 H POC Glucose 107 H 113 H Lactic Acid Calcium Phosphorus Magnesium AST ALT Lactate Dehydrogenase Total Bilirubin Direct Bilirubin CK-MB (CK-2) C-Reactive Protein NT-Pro-B Natriuret Pep Total Protein Albumin Arterial Blood Glucose Urine WBC (Auto) Urine Creatinine 01/10/20 01/10/20 01/10/20 04:05 11:36 17:54 WBC RBC Hgb Hct MCHC RDW MCV MCH Lymph % (Auto) [place] % (Auto) [place] # Eos # Lymph # (Auto) [place] # (Auto) Eos # (Auto) Seg Neutrophils % Seg Neuts % (Manual) Baso # (Auto) Lymphocytes % (Manual) Monocytes % (Manual) Eosinophils % (Manual) Basophils % (Manual) Seg Neutrophils # Seg Neutrophils # Man Lymphocytes # (Manual) Monocytes # (Manual) Eosinophils # (Manual) Nucleated RBC % Basophils # (Manual) PT INR APTT Heparin Anti-Xa Level ABG pH POC ABG pO2 ABG pO2 ABG HCO3 ABG O2 Saturation ABG Base Excess POC ABG pCO2 ABG Hemoglobin ABG Oxyhemoglobin ABG Chloride ABG Glucose Oxyhemoglobin Sodium Potassium Chloride Carbon Dioxide BUN Creatinine 0.7 L Glucose 110 H POC Glucose 129 H 117 H Lactic Acid Calcium Phosphorus Magnesium AST ALT Lactate Dehydrogenase Total Bilirubin Direct Bilirubin CK-MB (CK-2) C-Reactive Protein NT-Pro-B Natriuret Pep Total Protein Albumin Arterial Blood Glucose Urine WBC (Auto) Urine Creatinine 01/10/20 01/11/20 01/11/20 23:52 03:19 12:09 WBC RBC Hgb Hct MCHC RDW MCV MCH Lymph % (Auto) [place] % (Auto) [place] # Eos # Lymph # (Auto) [place] # (Auto) Eos # (Auto) Seg Neutrophils % Seg Neuts % (Manual) Baso # (Auto) Lymphocytes % (Manual) Monocytes % (Manual) Eosinophils % (Manual) Basophils % (Manual) Seg Neutrophils # Seg Neutrophils # Man Lymphocytes # (Manual) Monocytes # (Manual) Eosinophils # (Manual) Nucleated RBC % Basophils # (Manual) PT INR APTT Heparin Anti-Xa Level ABG pH POC ABG pO2 ABG pO2 ABG HCO3 ABG O2 Saturation ABG Base Excess POC ABG pCO2 ABG Hemoglobin ABG Oxyhemoglobin ABG Chloride ABG Glucose Oxyhemoglobin Sodium Potassium Chloride Carbon Dioxide BUN Creatinine Glucose POC Glucose 117 H 136 H 115 H Lactic Acid Calcium Phosphorus Magnesium AST ALT Lactate Dehydrogenase Total Bilirubin Direct Bilirubin CK-MB (CK-2) C-Reactive Protein NT-Pro-B Natriuret Pep Total Protein Albumin Arterial Blood Glucose Urine WBC (Auto) Urine Creatinine 01/11/20 01/11/20 01/12/20 18:27 23:28 00:23 WBC RBC Hgb 9.8 L Hct 31.6 L MCHC 31 L RDW 17.8 H MCV 83 L MCH 26 L Lymph % (Auto) [place] % (Auto) 8.0 H [place] # Eos # Lymph # (Auto) [place] # (Auto) Eos # (Auto) Seg Neutrophils % Seg Neuts % (Manual) Baso # (Auto) Lymphocytes % (Manual) Monocytes % (Manual) Eosinophils % (Manual) Basophils % (Manual) Seg Neutrophils # Seg Neutrophils # Man Lymphocytes # (Manual) Monocytes # (Manual) Eosinophils # (Manual) Nucleated RBC % Basophils # (Manual) PT INR APTT Heparin Anti-Xa Level ABG pH POC ABG pO2 ABG pO2 ABG HCO3 ABG O2 Saturation ABG Base Excess POC ABG pCO2 ABG Hemoglobin ABG Oxyhemoglobin ABG Chloride ABG Glucose Oxyhemoglobin Sodium Potassium Chloride Carbon Dioxide BUN Creatinine Glucose POC Glucose 118 H 122 H Lactic Acid Calcium Phosphorus Magnesium AST ALT Lactate Dehydrogenase Total Bilirubin Direct Bilirubin CK-MB (CK-2) C-Reactive Protein NT-Pro-B Natriuret Pep Total Protein Albumin Arterial Blood Glucose Urine WBC (Auto) Urine Creatinine 01/12/20 01/12/20 01/12/20 00:23 04:18 04:18 WBC RBC Hgb 9.6 L Hct 30.9 L MCHC 31 L RDW 17.3 H MCV 81 L MCH 25 L Lymph % (Auto) [place] % (Auto) [place] # Eos # Lymph # (Auto) [place] # (Auto) Eos # (Auto) Seg Neutrophils % Seg Neuts % (Manual) Baso # (Auto) Lymphocytes % (Manual) Monocytes % (Manual) Eosinophils % (Manual) Basophils % (Manual) Seg Neutrophils # Seg Neutrophils # Man Lymphocytes # (Manual) Monocytes # (Manual) Eosinophils # (Manual) Nucleated RBC % Basophils # (Manual) PT INR APTT Heparin Anti-Xa Level ABG pH POC ABG pO2 ABG pO2 ABG HCO3 ABG O2 Saturation ABG Base Excess POC ABG pCO2 ABG Hemoglobin ABG Oxyhemoglobin ABG Chloride ABG Glucose Oxyhemoglobin Sodium Potassium Chloride Carbon Dioxide BUN Creatinine 0.7 L 0.7 L Glucose 111 H 108 H POC Glucose Lactic Acid Calcium Phosphorus Magnesium AST ALT Lactate Dehydrogenase Total Bilirubin Direct Bilirubin CK-MB (CK-2) C-Reactive Protein NT-Pro-B Natriuret Pep Total Protein Albumin 2.6 L Arterial Blood Glucose Urine WBC (Auto) Urine Creatinine 01/12/20 01/12/20 01/12/20 06:03 12:27 13:58 WBC RBC Hgb Hct MCHC RDW MCV MCH Lymph % (Auto) [place] % (Auto) [place] # Eos # Lymph # (Auto) [place] # (Auto) Eos # (Auto) Seg Neutrophils % Seg Neuts % (Manual) Baso # (Auto) Lymphocytes % (Manual) Monocytes % (Manual) Eosinophils % (Manual) Basophils % (Manual) Seg Neutrophils # Seg Neutrophils # Man Lymphocytes # (Manual) Monocytes # (Manual) Eosinophils # (Manual) Nucleated RBC % Basophils # (Manual) PT INR APTT Heparin Anti-Xa Level ABG pH 7.453 H POC ABG pO2 76.6 L ABG pO2 ABG HCO3 ABG O2 Saturation ABG Base Excess POC ABG pCO2 ABG Hemoglobin 10.3 L ABG Oxyhemoglobin ABG Chloride ABG Glucose 99 H Oxyhemoglobin Sodium Potassium Chloride Carbon Dioxide BUN Creatinine Glucose POC Glucose 128 H 121 H Lactic Acid Calcium Phosphorus Magnesium AST ALT Lactate Dehydrogenase Total Bilirubin Direct Bilirubin CK-MB (CK-2) C-Reactive Protein NT-Pro-B Natriuret Pep Total Protein Albumin Arterial Blood Glucose 99 H Urine WBC (Auto) Urine Creatinine 01/12/20 01/13/20 01/13/20 18:24 12:01 17:46 WBC RBC Hgb Hct MCHC RDW MCV MCH Lymph % (Auto) [place] % (Auto) [place] # Eos # Lymph # (Auto) [place] # (Auto) Eos # (Auto) Seg Neutrophils % Seg Neuts % (Manual) Baso # (Auto) Lymphocytes % (Manual) Monocytes % (Manual) Eosinophils % (Manual) Basophils % (Manual) Seg Neutrophils # Seg Neutrophils # Man Lymphocytes # (Manual) Monocytes # (Manual) Eosinophils # (Manual) Nucleated RBC % Basophils # (Manual) PT INR APTT Heparin Anti-Xa Level ABG pH POC ABG pO2 ABG pO2 ABG HCO3 ABG O2 Saturation ABG Base Excess POC ABG pCO2 ABG Hemoglobin ABG Oxyhemoglobin ABG Chloride ABG Glucose Oxyhemoglobin Sodium Potassium Chloride Carbon Dioxide BUN Creatinine Glucose POC Glucose 119 H 107 H 124 H Lactic Acid Calcium Phosphorus Magnesium AST ALT Lactate Dehydrogenase Total Bilirubin Direct Bilirubin CK-MB (CK-2) C-Reactive Protein NT-Pro-B Natriuret Pep Total Protein Albumin Arterial Blood Glucose Urine WBC (Auto) Urine Creatinine 01/13/20 01/14/20 01/14/20 20:40 00:10 05:33 WBC RBC Hgb Hct MCHC RDW MCV MCH Lymph % (Auto) [place] % (Auto) [place] # Eos # Lymph # (Auto) [place] # (Auto) Eos # (Auto) Seg Neutrophils % Seg Neuts % (Manual) Baso # (Auto) Lymphocytes % (Manual) Monocytes % (Manual) Eosinophils % (Manual) Basophils % (Manual) Seg Neutrophils # Seg Neutrophils # Man Lymphocytes # (Manual) Monocytes # (Manual) Eosinophils # (Manual) Nucleated RBC % Basophils # (Manual) PT INR APTT Heparin Anti-Xa Level ABG pH POC ABG pO2 ABG pO2 65.3 L ABG HCO3 31.8 H ABG O2 Saturation 93.5 L ABG Base Excess 6.7 H POC ABG pCO2 ABG Hemoglobin 13.3 L ABG Oxyhemoglobin ABG Chloride ABG Glucose Oxyhemoglobin 90.9 L Sodium Potassium Chloride Carbon Dioxide BUN Creatinine Glucose POC Glucose 111 H 111 H Lactic Acid Calcium Phosphorus Magnesium AST ALT Lactate Dehydrogenase Total Bilirubin Direct Bilirubin CK-MB (CK-2) C-Reactive Protein NT-Pro-B Natriuret Pep Total Protein Albumin Arterial Blood Glucose Urine WBC (Auto) Urine Creatinine 01/14/20 01/14/20 01/14/20 12:10 16:14 16:14 WBC RBC Hgb 10.6 L Hct 34.2 L MCHC 31 L RDW 18.3 H MCV 83 L MCH 26 L Lymph % (Auto) [place] % (Auto) 7.4 H [place] # Eos # Lymph # (Auto) [place] # (Auto) Eos # (Auto) Seg Neutrophils % 71.9 H Seg Neuts % (Manual) Baso # (Auto) Lymphocytes % (Manual) Monocytes % (Manual) Eosinophils % (Manual) Basophils % (Manual) Seg Neutrophils # Seg Neutrophils # Man Lymphocytes # (Manual) Monocytes # (Manual) Eosinophils # (Manual) Nucleated RBC % Basophils # (Manual) PT INR APTT Heparin Anti-Xa Level ABG pH POC ABG pO2 ABG pO2 ABG HCO3 ABG O2 Saturation ABG Base Excess POC ABG pCO2 ABG Hemoglobin ABG Oxyhemoglobin ABG Chloride ABG Glucose Oxyhemoglobin Sodium Potassium Chloride Carbon Dioxide 31 H BUN Creatinine 0.6 L Glucose 131 H POC Glucose 139 H Lactic Acid Calcium Phosphorus Magnesium AST ALT Lactate Dehydrogenase Total Bilirubin Direct Bilirubin CK-MB (CK-2) C-Reactive Protein NT-Pro-B Natriuret Pep Total Protein Albumin Arterial Blood Glucose Urine WBC (Auto) Urine Creatinine 01/14/20 01/15/20 01/15/20 18:05 00:52 05:35 WBC RBC Hgb Hct MCHC RDW MCV MCH Lymph % (Auto) [place] % (Auto) [place] # Eos # Lymph # (Auto) [place] # (Auto) Eos # (Auto) Seg Neutrophils % Seg Neuts % (Manual) Baso # (Auto) Lymphocytes % (Manual) Monocytes % (Manual) Eosinophils % (Manual) Basophils % (Manual) Seg Neutrophils # Seg Neutrophils # Man Lymphocytes # (Manual) Monocytes # (Manual) Eosinophils # (Manual) Nucleated RBC % Basophils # (Manual) PT INR APTT Heparin Anti-Xa Level ABG pH POC ABG pO2 ABG pO2 ABG HCO3 ABG O2 Saturation ABG Base Excess POC ABG pCO2 ABG Hemoglobin ABG Oxyhemoglobin ABG Chloride ABG Glucose Oxyhemoglobin Sodium Potassium Chloride Carbon Dioxide BUN Creatinine Glucose POC Glucose 147 H 140 H 159 H Lactic Acid Calcium Phosphorus Magnesium AST ALT Lactate Dehydrogenase Total Bilirubin Direct Bilirubin CK-MB (CK-2) C-Reactive Protein NT-Pro-B Natriuret Pep Total Protein Albumin Arterial Blood Glucose Urine WBC (Auto) Urine Creatinine 01/15/20 01/15/20 01/16/20 12:52 17:43 00:32 WBC RBC Hgb Hct MCHC RDW MCV MCH Lymph % (Auto) [place] % (Auto) [place] # Eos # Lymph # (Auto) [place] # (Auto) Eos # (Auto) Seg Neutrophils % Seg Neuts % (Manual) Baso # (Auto) Lymphocytes % (Manual) Monocytes % (Manual) Eosinophils % (Manual) Basophils % (Manual) Seg Neutrophils # Seg Neutrophils # Man Lymphocytes # (Manual) Monocytes # (Manual) Eosinophils # (Manual) Nucleated RBC % Basophils # (Manual) PT INR APTT Heparin Anti-Xa Level ABG pH POC ABG pO2 ABG pO2 ABG HCO3 ABG O2 Saturation ABG Base Excess POC ABG pCO2 ABG Hemoglobin ABG Oxyhemoglobin ABG Chloride ABG Glucose Oxyhemoglobin Sodium Potassium Chloride Carbon Dioxide BUN Creatinine Glucose POC Glucose 164 H 167 H 153 H Lactic Acid Calcium Phosphorus Magnesium AST ALT Lactate Dehydrogenase Total Bilirubin Direct Bilirubin CK-MB (CK-2) C-Reactive Protein NT-Pro-B Natriuret Pep Total Protein Albumin Arterial Blood Glucose Urine WBC (Auto) Urine Creatinine 01/16/20 01/16/20 01/17/20 05:46 11:48 06:38 WBC RBC Hgb Hct MCHC RDW MCV MCH Lymph % (Auto) [place] % (Auto) [place] # Eos # Lymph # (Auto) [place] # (Auto) Eos # (Auto) Seg Neutrophils % Seg Neuts % (Manual) Baso # (Auto) Lymphocytes % (Manual) Monocytes % (Manual) Eosinophils % (Manual) Basophils % (Manual) Seg Neutrophils # Seg Neutrophils # Man Lymphocytes # (Manual) Monocytes # (Manual) Eosinophils # (Manual) Nucleated RBC % Basophils # (Manual) PT INR APTT Heparin Anti-Xa Level ABG pH POC ABG pO2 ABG pO2 ABG HCO3 ABG O2 Saturation ABG Base Excess POC ABG pCO2 ABG Hemoglobin ABG Oxyhemoglobin ABG Chloride ABG Glucose Oxyhemoglobin Sodium Potassium Chloride Carbon Dioxide BUN Creatinine Glucose POC Glucose 163 H 155 H 116 H Lactic Acid Calcium Phosphorus Magnesium AST ALT Lactate Dehydrogenase Total Bilirubin Direct Bilirubin CK-MB (CK-2) C-Reactive Protein NT-Pro-B Natriuret Pep Total Protein Albumin Arterial Blood Glucose Urine WBC (Auto) Urine Creatinine 01/17/20 01/17/20 01/18/20 11:36 17:43 00:12 WBC RBC Hgb Hct MCHC RDW MCV MCH Lymph % (Auto) [place] % (Auto) [place] # Eos # Lymph # (Auto) [place] # (Auto) Eos # (Auto) Seg Neutrophils % Seg Neuts % (Manual) Baso # (Auto) Lymphocytes % (Manual) Monocytes % (Manual) Eosinophils % (Manual) Basophils % (Manual) Seg Neutrophils # Seg Neutrophils # Man Lymphocytes # (Manual) Monocytes # (Manual) Eosinophils # (Manual) Nucleated RBC % Basophils # (Manual) PT INR APTT Heparin Anti-Xa Level ABG pH POC ABG pO2 ABG pO2 ABG HCO3 ABG O2 Saturation ABG Base Excess POC ABG pCO2 ABG Hemoglobin ABG Oxyhemoglobin ABG Chloride ABG Glucose Oxyhemoglobin Sodium Potassium Chloride Carbon Dioxide BUN Creatinine Glucose POC Glucose 110 H 134 H 108 H Lactic Acid Calcium Phosphorus Magnesium AST ALT Lactate Dehydrogenase Total Bilirubin Direct Bilirubin CK-MB (CK-2) C-Reactive Protein NT-Pro-B Natriuret Pep Total Protein Albumin Arterial Blood Glucose Urine WBC (Auto) Urine Creatinine 01/18/20 01/18/20 01/18/20 05:37 06:46 06:46 WBC RBC Hgb 10.1 L Hct 32.2 L MCHC 31 L RDW 18.1 H MCV 81 L MCH 25 L Lymph % (Auto) [place] % (Auto) [place] # Eos # Lymph # (Auto) [place] # (Auto) Eos # (Auto) Seg Neutrophils % 71.9 H Seg Neuts % (Manual) Baso # (Auto) Lymphocytes % (Manual) Monocytes % (Manual) Eosinophils % (Manual) Basophils % (Manual) Seg Neutrophils # Seg Neutrophils # Man Lymphocytes # (Manual) Monocytes # (Manual) Eosinophils # (Manual) Nucleated RBC % Basophils # (Manual) PT INR APTT Heparin Anti-Xa Level ABG pH POC ABG pO2 ABG pO2 ABG HCO3 ABG O2 Saturation ABG Base Excess POC ABG pCO2 ABG Hemoglobin ABG Oxyhemoglobin ABG Chloride ABG Glucose Oxyhemoglobin Sodium Potassium Chloride Carbon Dioxide BUN Creatinine 0.7 L Glucose 155 H POC Glucose 168 H Lactic Acid Calcium Phosphorus Magnesium AST ALT Lactate Dehydrogenase Total Bilirubin Direct Bilirubin CK-MB (CK-2) C-Reactive Protein NT-Pro-B Natriuret Pep Total Protein Albumin Arterial Blood Glucose Urine WBC (Auto) Urine Creatinine 01/18/20 01/18/20 01/18/20 12:05 17:14 23:28 WBC RBC Hgb Hct MCHC RDW MCV MCH Lymph % (Auto) [place] % (Auto) [place] # Eos # Lymph # (Auto) [place] # (Auto) Eos # (Auto) Seg Neutrophils % Seg Neuts % (Manual) Baso # (Auto) Lymphocytes % (Manual) Monocytes % (Manual) Eosinophils % (Manual) Basophils % (Manual) Seg Neutrophils # Seg Neutrophils # Man Lymphocytes # (Manual) Monocytes # (Manual) Eosinophils # (Manual) Nucleated RBC % Basophils # (Manual) PT INR APTT Heparin Anti-Xa Level ABG pH POC ABG pO2 ABG pO2 ABG HCO3 ABG O2 Saturation ABG Base Excess POC ABG pCO2 ABG Hemoglobin ABG Oxyhemoglobin ABG Chloride ABG Glucose Oxyhemoglobin Sodium Potassium Chloride Carbon Dioxide BUN Creatinine Glucose POC Glucose 128 H 126 H 128 H Lactic Acid Calcium Phosphorus Magnesium AST ALT Lactate Dehydrogenase Total Bilirubin Direct Bilirubin CK-MB (CK-2) C-Reactive Protein NT-Pro-B Natriuret Pep Total Protein Albumin Arterial Blood Glucose Urine WBC (Auto) Urine Creatinine 01/19/20 01/19/20 01/19/20 05:39 12:33 17:36 WBC RBC Hgb Hct MCHC RDW MCV MCH Lymph % (Auto) [place] % (Auto) [place] # Eos # Lymph # (Auto) [place] # (Auto) Eos # (Auto) Seg Neutrophils % Seg Neuts % (Manual) Baso # (Auto) Lymphocytes % (Manual) Monocytes % (Manual) Eosinophils % (Manual) Basophils % (Manual) Seg Neutrophils # Seg Neutrophils # Man Lymphocytes # (Manual) Monocytes # (Manual) Eosinophils # (Manual) Nucleated RBC % Basophils # (Manual) PT INR APTT Heparin Anti-Xa Level ABG pH POC ABG pO2 ABG pO2 ABG HCO3 ABG O2 Saturation ABG Base Excess POC ABG pCO2 ABG Hemoglobin ABG Oxyhemoglobin ABG Chloride ABG Glucose Oxyhemoglobin Sodium Potassium Chloride Carbon Dioxide BUN Creatinine Glucose POC Glucose 164 H 171 H 152 H Lactic Acid Calcium Phosphorus Magnesium AST ALT Lactate Dehydrogenase Total Bilirubin Direct Bilirubin CK-MB (CK-2) C-Reactive Protein NT-Pro-B Natriuret Pep Total Protein Albumin Arterial Blood Glucose Urine WBC (Auto) Urine Creatinine 01/20/20 01/20/20 01/20/20 00:12 05:20 05:35 WBC RBC Hgb 9.2 L Hct 29.4 L MCHC 31 L RDW 17.9 H MCV 81 L MCH 25 L Lymph % (Auto) [place] % (Auto) [place] # Eos # Lymph # (Auto) [place] # (Auto) Eos # (Auto) Seg Neutrophils % Seg Neuts % (Manual) Baso # (Auto) Lymphocytes % (Manual) Monocytes % (Manual) Eosinophils % (Manual) Basophils % (Manual) Seg Neutrophils # Seg Neutrophils # Man Lymphocytes # (Manual) Monocytes # (Manual) Eosinophils # (Manual) Nucleated RBC % Basophils # (Manual) PT INR APTT Heparin Anti-Xa Level ABG pH POC ABG pO2 ABG pO2 ABG HCO3 ABG O2 Saturation ABG Base Excess POC ABG pCO2 ABG Hemoglobin ABG Oxyhemoglobin ABG Chloride ABG Glucose Oxyhemoglobin Sodium Potassium Chloride Carbon Dioxide BUN Creatinine Glucose POC Glucose 120 H 136 H Lactic Acid Calcium Phosphorus Magnesium AST ALT Lactate Dehydrogenase Total Bilirubin Direct Bilirubin CK-MB (CK-2) C-Reactive Protein NT-Pro-B Natriuret Pep Total Protein Albumin Arterial Blood Glucose Urine WBC (Auto) Urine Creatinine 01/20/20 01/20/20 01/20/20 05:40 11:58 14:55 WBC RBC Hgb 9.0 L Hct 28.3 L MCHC RDW MCV MCH Lymph % (Auto) [place] % (Auto) [place] # Eos # Lymph # (Auto) [place] # (Auto) Eos # (Auto) Seg Neutrophils % Seg Neuts % (Manual) Baso # (Auto) Lymphocytes % (Manual) Monocytes % (Manual) Eosinophils % (Manual) Basophils % (Manual) Seg Neutrophils # Seg Neutrophils # Man Lymphocytes # (Manual) Monocytes # (Manual) Eosinophils # (Manual) Nucleated RBC % Basophils # (Manual) PT INR APTT Heparin Anti-Xa Level ABG pH POC ABG pO2 ABG pO2 ABG HCO3 ABG O2 Saturation ABG Base Excess POC ABG pCO2 ABG Hemoglobin ABG Oxyhemoglobin ABG Chloride ABG Glucose Oxyhemoglobin Sodium Potassium Chloride Carbon Dioxide 32 H BUN 22 H Creatinine 0.7 L Glucose 128 H POC Glucose 152 H Lactic Acid Calcium Phosphorus Magnesium AST ALT Lactate Dehydrogenase Total Bilirubin Direct Bilirubin CK-MB (CK-2) C-Reactive Protein NT-Pro-B Natriuret Pep Total Protein Albumin Arterial Blood Glucose Urine WBC (Auto) Urine Creatinine 01/20/20 01/20/20 01/20/20 14:55 18:14 21:35 WBC RBC Hgb Hct MCHC RDW MCV MCH Lymph % (Auto) [place] % (Auto) [place] # Eos # Lymph # (Auto) [place] # (Auto) Eos # (Auto) Seg Neutrophils % Seg Neuts % (Manual) Baso # (Auto) Lymphocytes % (Manual) Monocytes % (Manual) Eosinophils % (Manual) Basophils % (Manual) Seg Neutrophils # Seg Neutrophils # Man Lymphocytes # (Manual) Monocytes # (Manual) Eosinophils # (Manual) Nucleated RBC % Basophils # (Manual) PT 20.4 H INR 1.72 H APTT 40.6 H Heparin Anti-Xa Level > 2.00 H ABG pH POC ABG pO2 ABG pO2 ABG HCO3 ABG O2 Saturation ABG Base Excess POC ABG pCO2 ABG Hemoglobin ABG Oxyhemoglobin ABG Chloride ABG Glucose Oxyhemoglobin Sodium Potassium Chloride Carbon Dioxide BUN Creatinine Glucose POC Glucose 150 H Lactic Acid Calcium Phosphorus Magnesium AST ALT Lactate Dehydrogenase Total Bilirubin Direct Bilirubin CK-MB (CK-2) C-Reactive Protein NT-Pro-B Natriuret Pep Total Protein Albumin Arterial Blood Glucose Urine WBC (Auto) Urine Creatinine 01/21/20 01/21/20 01/21/20 00:30 05:47 05:59 WBC RBC Hgb Hct MCHC RDW MCV MCH Lymph % (Auto) [place] % (Auto) [place] # Eos # Lymph # (Auto) [place] # (Auto) Eos # (Auto) Seg Neutrophils % Seg Neuts % (Manual) Baso # (Auto) Lymphocytes % (Manual) Monocytes % (Manual) Eosinophils % (Manual) Basophils % (Manual) Seg Neutrophils # Seg Neutrophils # Man Lymphocytes # (Manual) Monocytes # (Manual) Eosinophils # (Manual) Nucleated RBC % Basophils # (Manual) PT INR APTT Heparin Anti-Xa Level 1.93 H ABG pH POC ABG pO2 ABG pO2 ABG HCO3 ABG O2 Saturation ABG Base Excess POC ABG pCO2 ABG Hemoglobin ABG Oxyhemoglobin ABG Chloride ABG Glucose Oxyhemoglobin Sodium Potassium Chloride Carbon Dioxide BUN Creatinine Glucose POC Glucose 126 H 148 H Lactic Acid Calcium Phosphorus Magnesium AST ALT Lactate Dehydrogenase Total Bilirubin Direct Bilirubin CK-MB (CK-2) C-Reactive Protein NT-Pro-B Natriuret Pep Total Protein Albumin Arterial Blood Glucose Urine WBC (Auto) Urine Creatinine 01/21/20 01/21/20 01/21/20 12:32 18:20 23:54 WBC RBC Hgb Hct MCHC RDW MCV MCH Lymph % (Auto) [place] % (Auto) [place] # Eos # Lymph # (Auto) [place] # (Auto) Eos # (Auto) Seg Neutrophils % Seg Neuts % (Manual) Baso # (Auto) Lymphocytes % (Manual) Monocytes % (Manual) Eosinophils % (Manual) Basophils % (Manual) Seg Neutrophils # Seg Neutrophils # Man Lymphocytes # (Manual) Monocytes # (Manual) Eosinophils # (Manual) Nucleated RBC % Basophils # (Manual) PT INR APTT Heparin Anti-Xa Level 1.28 H ABG pH POC ABG pO2 ABG pO2 ABG HCO3 ABG O2 Saturation ABG Base Excess POC ABG pCO2 ABG Hemoglobin ABG Oxyhemoglobin ABG Chloride ABG Glucose Oxyhemoglobin Sodium Potassium Chloride Carbon Dioxide BUN Creatinine Glucose POC Glucose 112 H 146 H Lactic Acid Calcium Phosphorus Magnesium AST ALT Lactate Dehydrogenase Total Bilirubin Direct Bilirubin CK-MB (CK-2) C-Reactive Protein NT-Pro-B Natriuret Pep Total Protein Albumin Arterial Blood Glucose Urine WBC (Auto) Urine Creatinine 01/22/20 01/22/20 01/22/20 04:45 04:45 05:48 WBC RBC Hgb 9.3 L Hct 29.0 L MCHC RDW MCV MCH Lymph % (Auto) [place] % (Auto) [place] # Eos # Lymph # (Auto) [place] # (Auto) Eos # (Auto) Seg Neutrophils % Seg Neuts % (Manual) Baso # (Auto) Lymphocytes % (Manual) Monocytes % (Manual) Eosinophils % (Manual) Basophils % (Manual) Seg Neutrophils # Seg Neutrophils # Man Lymphocytes # (Manual) Monocytes # (Manual) Eosinophils # (Manual) Nucleated RBC % Basophils # (Manual) PT INR APTT Heparin Anti-Xa Level 1.34 H ABG pH POC ABG pO2 ABG pO2 ABG HCO3 ABG O2 Saturation ABG Base Excess POC ABG pCO2 ABG Hemoglobin ABG Oxyhemoglobin ABG Chloride ABG Glucose Oxyhemoglobin Sodium Potassium Chloride Carbon Dioxide BUN Creatinine Glucose POC Glucose 142 H Lactic Acid Calcium Phosphorus Magnesium AST ALT Lactate Dehydrogenase Total Bilirubin Direct Bilirubin CK-MB (CK-2) C-Reactive Protein NT-Pro-B Natriuret Pep Total Protein Albumin Arterial Blood Glucose Urine WBC (Auto) Urine Creatinine 01/22/20 01/22/20 01/22/20 08:09 08:22 09:58 WBC RBC Hgb Hct MCHC RDW MCV MCH Lymph % (Auto) [place] % (Auto) [place] # Eos # Lymph # (Auto) [place] # (Auto) Eos # (Auto) Seg Neutrophils % Seg Neuts % (Manual) Baso # (Auto) Lymphocytes % (Manual) Monocytes % (Manual) Eosinophils % (Manual) Basophils % (Manual) Seg Neutrophils # Seg Neutrophils # Man Lymphocytes # (Manual) Monocytes # (Manual) Eosinophils # (Manual) Nucleated RBC % Basophils # (Manual) PT 16.9 H INR 1.34 H APTT Heparin Anti-Xa Level ABG pH POC ABG pO2 ABG pO2 ABG HCO3 ABG O2 Saturation ABG Base Excess POC ABG pCO2 ABG Hemoglobin ABG Oxyhemoglobin ABG Chloride ABG Glucose Oxyhemoglobin Sodium Potassium Chloride 97.8 L Carbon Dioxide BUN 29 H Creatinine Glucose 128 H POC Glucose 131 H Lactic Acid Calcium Phosphorus Magnesium AST ALT Lactate Dehydrogenase Total Bilirubin Direct Bilirubin CK-MB (CK-2) C-Reactive Protein NT-Pro-B Natriuret Pep Total Protein Albumin Arterial Blood Glucose Urine WBC (Auto) Urine Creatinine 01/22/20 01/22/20 01/22/20 12:44 16:13 18:18 WBC RBC Hgb Hct MCHC RDW MCV MCH Lymph % (Auto) [place] % (Auto) [place] # Eos # Lymph # (Auto) [place] # (Auto) Eos # (Auto) Seg Neutrophils % Seg Neuts % (Manual) Baso # (Auto) Lymphocytes % (Manual) Monocytes % (Manual) Eosinophils % (Manual) Basophils % (Manual) Seg Neutrophils # Seg Neutrophils # Man Lymphocytes # (Manual) Monocytes # (Manual) Eosinophils # (Manual) Nucleated RBC % Basophils # (Manual) PT INR APTT Heparin Anti-Xa Level ABG pH POC ABG pO2 ABG pO2 ABG HCO3 ABG O2 Saturation ABG Base Excess POC ABG pCO2 ABG Hemoglobin ABG Oxyhemoglobin ABG Chloride ABG Glucose Oxyhemoglobin Sodium Potassium Chloride Carbon Dioxide BUN Creatinine Glucose POC Glucose 156 H 133 H 155 H Lactic Acid Calcium Phosphorus Magnesium AST ALT Lactate Dehydrogenase Total Bilirubin Direct Bilirubin CK-MB (CK-2) C-Reactive Protein NT-Pro-B Natriuret Pep Total Protein Albumin Arterial Blood Glucose Urine WBC (Auto) Urine Creatinine 01/22/20 01/23/20 01/23/20 23:22 05:37 12:59 WBC RBC Hgb Hct MCHC RDW MCV MCH Lymph % (Auto) [place] % (Auto) [place] # Eos # Lymph # (Auto) [place] # (Auto) Eos # (Auto) Seg Neutrophils % Seg Neuts % (Manual) Baso # (Auto) Lymphocytes % (Manual) Monocytes % (Manual) Eosinophils % (Manual) Basophils % (Manual) Seg Neutrophils # Seg Neutrophils # Man Lymphocytes # (Manual) Monocytes # (Manual) Eosinophils # (Manual) Nucleated RBC % Basophils # (Manual) PT INR APTT Heparin Anti-Xa Level ABG pH POC ABG pO2 ABG pO2 ABG HCO3 ABG O2 Saturation ABG Base Excess POC ABG pCO2 ABG Hemoglobin ABG Oxyhemoglobin ABG Chloride ABG Glucose Oxyhemoglobin Sodium Potassium Chloride Carbon Dioxide BUN Creatinine Glucose POC Glucose 148 H 163 H 175 H Lactic Acid Calcium Phosphorus Magnesium AST ALT Lactate Dehydrogenase Total Bilirubin Direct Bilirubin CK-MB (CK-2) C-Reactive Protein NT-Pro-B Natriuret Pep Total Protein Albumin Arterial Blood Glucose Urine WBC (Auto) Urine Creatinine 01/23/20 01/23/20 01/24/20 17:28 23:56 04:30 WBC RBC 3.46 L Hgb 8.8 L Hct 27.8 L MCHC RDW 18.2 H MCV 81 L MCH 25 L Lymph % (Auto) [place] % (Auto) 7.8 H [place] # Eos # Lymph # (Auto) [place] # (Auto) Eos # (Auto) Seg Neutrophils % Seg Neuts % (Manual) Baso # (Auto) Lymphocytes % (Manual) Monocytes % (Manual) Eosinophils % (Manual) Basophils % (Manual) Seg Neutrophils # Seg Neutrophils # Man Lymphocytes # (Manual) Monocytes # (Manual) Eosinophils # (Manual) Nucleated RBC % Basophils # (Manual) PT INR APTT Heparin Anti-Xa Level ABG pH POC ABG pO2 ABG pO2 ABG HCO3 ABG O2 Saturation ABG Base Excess POC ABG pCO2 ABG Hemoglobin ABG Oxyhemoglobin ABG Chloride ABG Glucose Oxyhemoglobin Sodium Potassium Chloride Carbon Dioxide BUN Creatinine Glucose POC Glucose 165 H 177 H Lactic Acid Calcium Phosphorus Magnesium AST ALT Lactate Dehydrogenase Total Bilirubin Direct Bilirubin CK-MB (CK-2) C-Reactive Protein NT-Pro-B Natriuret Pep Total Protein Albumin Arterial Blood Glucose Urine WBC (Auto) Urine Creatinine 1101/24/20 01/24/20 04:30 07:18 12:06 WBC RBC Hgb Hct MCHC RDW MCV MCH Lymph % (Auto) [place] % (Auto) [place] # Eos # Lymph # (Auto) [place] # (Auto) Eos # (Auto) Seg Neutrophils % Seg Neuts % (Manual) Baso # (Auto) Lymphocytes % (Manual) Monocytes % (Manual) Eosinophils % (Manual) Basophils % (Manual) Seg Neutrophils # Seg Neutrophils # Man Lymphocytes # (Manual) Monocytes # (Manual) Eosinophils # (Manual) Nucleated RBC % Basophils # (Manual) PT INR APTT Heparin Anti-Xa Level ABG pH POC ABG pO2 ABG pO2 ABG HCO3 ABG O2 Saturation ABG Base Excess POC ABG pCO2 ABG Hemoglobin ABG Oxyhemoglobin ABG Chloride ABG Glucose Oxyhemoglobin Sodium Potassium Chloride 97.9 L Carbon Dioxide BUN 31 H Creatinine Glucose 146 H POC Glucose 151 H 133 H Lactic Acid Calcium Phosphorus Magnesium AST ALT Lactate Dehydrogenase Total Bilirubin Direct Bilirubin CK-MB (CK-2) C-Reactive Protein NT-Pro-B Natriuret Pep Total Protein Albumin Arterial Blood Glucose Urine WBC (Auto) Urine Creatinine 01/24/20 01/25/20 01/25/20 17:36 00:08 04:25 WBC RBC 3.50 L Hgb 8.7 L Hct 27.9 L MCHC 31 L RDW 18.2 H MCV 80 L MCH 25 L Lymph % (Auto) [place] % (Auto) 8.5 H [place] # Eos # Lymph # (Auto) [place] # (Auto) Eos # (Auto) Seg Neutrophils % Seg Neuts % (Manual) Baso # (Auto) Lymphocytes % (Manual) Monocytes % (Manual) Eosinophils % (Manual) Basophils % (Manual) Seg Neutrophils # Seg Neutrophils # Man Lymphocytes # (Manual) Monocytes # (Manual) Eosinophils # (Manual) Nucleated RBC % Basophils # (Manual) PT INR APTT Heparin Anti-Xa Level ABG pH POC ABG pO2 ABG pO2 ABG HCO3 ABG O2 Saturation ABG Base Excess POC ABG pCO2 ABG Hemoglobin ABG Oxyhemoglobin ABG Chloride ABG Glucose Oxyhemoglobin Sodium Potassium Chloride Carbon Dioxide BUN Creatinine Glucose POC Glucose 133 H 129 H Lactic Acid Calcium Phosphorus Magnesium AST ALT Lactate Dehydrogenase Total Bilirubin Direct Bilirubin CK-MB (CK-2) C-Reactive Protein NT-Pro-B Natriuret Pep Total Protein Albumin Arterial Blood Glucose Urine WBC (Auto) Urine Creatinine 01/25/20 01/25/20 01/25/20 04:25 05:38 11:52 WBC RBC Hgb Hct MCHC RDW MCV MCH Lymph % (Auto) [place] % (Auto) [place] # Eos # Lymph # (Auto) [place] # (Auto) Eos # (Auto) Seg Neutrophils % Seg Neuts % (Manual) Baso # (Auto) Lymphocytes % (Manual) Monocytes % (Manual) Eosinophils % (Manual) Basophils % (Manual) Seg Neutrophils # Seg Neutrophils # Man Lymphocytes # (Manual) Monocytes # (Manual) Eosinophils # (Manual) Nucleated RBC % Basophils # (Manual) PT INR APTT Heparin Anti-Xa Level ABG pH POC ABG pO2 ABG pO2 ABG HCO3 ABG O2 Saturation ABG Base Excess POC ABG pCO2 ABG Hemoglobin ABG Oxyhemoglobin ABG Chloride ABG Glucose Oxyhemoglobin Sodium Potassium Chloride Carbon Dioxide BUN 30 H Creatinine Glucose 134 H POC Glucose 129 H 134 H Lactic Acid Calcium Phosphorus Magnesium AST ALT Lactate Dehydrogenase Total Bilirubin Direct Bilirubin CK-MB (CK-2) C-Reactive Protein NT-Pro-B Natriuret Pep Total Protein Albumin Arterial Blood Glucose Urine WBC (Auto) Urine Creatinine 01/25/20 01/25/20 01/26/20 17:13 21:02 00:59 WBC RBC Hgb Hct MCHC RDW MCV MCH Lymph % (Auto) [place] % (Auto) [place] # Eos # Lymph # (Auto) [place] # (Auto) Eos # (Auto) Seg Neutrophils % Seg Neuts % (Manual) Baso # (Auto) Lymphocytes % (Manual) Monocytes % (Manual) Eosinophils % (Manual) Basophils % (Manual) Seg Neutrophils # Seg Neutrophils # Man Lymphocytes # (Manual) Monocytes # (Manual) Eosinophils # (Manual) Nucleated RBC % Basophils # (Manual) PT INR APTT Heparin Anti-Xa Level ABG pH POC ABG pO2 ABG pO2 57.5 L ABG HCO3 31.7 H ABG O2 Saturation 90.3 L ABG Base Excess 6.6 H POC ABG pCO2 ABG Hemoglobin 13.0 L ABG Oxyhemoglobin ABG Chloride ABG Glucose Oxyhemoglobin 87.5 L Sodium Potassium Chloride Carbon Dioxide BUN Creatinine Glucose POC Glucose 124 H 196 H Lactic Acid Calcium Phosphorus Magnesium AST ALT Lactate Dehydrogenase Total Bilirubin Direct Bilirubin CK-MB (CK-2) C-Reactive Protein NT-Pro-B Natriuret Pep Total Protein Albumin Arterial Blood Glucose Urine WBC (Auto) Urine Creatinine 01/26/20 01/26/20 01/26/20 03:20 05:46 12:46 WBC RBC Hgb 9.2 L Hct 29.4 L MCHC RDW MCV MCH Lymph % (Auto) [place] % (Auto) [place] # Eos # Lymph # (Auto) [place] # (Auto) Eos # (Auto) Seg Neutrophils % Seg Neuts % (Manual) Baso # (Auto) Lymphocytes % (Manual) Monocytes % (Manual) Eosinophils % (Manual) Basophils % (Manual) Seg Neutrophils # Seg Neutrophils # Man Lymphocytes # (Manual) Monocytes # (Manual) Eosinophils # (Manual) Nucleated RBC % Basophils # (Manual) PT INR APTT Heparin Anti-Xa Level ABG pH POC ABG pO2 ABG pO2 ABG HCO3 ABG O2 Saturation ABG Base Excess POC ABG pCO2 ABG Hemoglobin ABG Oxyhemoglobin ABG Chloride ABG Glucose Oxyhemoglobin Sodium Potassium Chloride Carbon Dioxide BUN Creatinine Glucose POC Glucose 141 H 122 H Lactic Acid Calcium Phosphorus Magnesium AST ALT Lactate Dehydrogenase Total Bilirubin Direct Bilirubin CK-MB (CK-2) C-Reactive Protein NT-Pro-B Natriuret Pep Total Protein Albumin Arterial Blood Glucose Urine WBC (Auto) Urine Creatinine 01/26/20 01/26/20 01/27/20 18:03 23:55 04:47 WBC RBC Hgb Hct MCHC RDW MCV MCH Lymph % (Auto) [place] % (Auto) [place] # Eos # Lymph # (Auto) [place] # (Auto) Eos # (Auto) Seg Neutrophils % Seg Neuts % (Manual) Baso # (Auto) Lymphocytes % (Manual) Monocytes % (Manual) Eosinophils % (Manual) Basophils % (Manual) Seg Neutrophils # Seg Neutrophils # Man Lymphocytes # (Manual) Monocytes # (Manual) Eosinophils # (Manual) Nucleated RBC % Basophils # (Manual) PT INR APTT Heparin Anti-Xa Level ABG pH POC ABG pO2 ABG pO2 ABG HCO3 ABG O2 Saturation ABG Base Excess POC ABG pCO2 ABG Hemoglobin ABG Oxyhemoglobin ABG Chloride ABG Glucose Oxyhemoglobin Sodium Potassium Chloride Carbon Dioxide BUN 30 H Creatinine 0.7 L Glucose 135 H POC Glucose 142 H 159 H Lactic Acid Calcium Phosphorus Magnesium AST ALT Lactate Dehydrogenase Total Bilirubin Direct Bilirubin CK-MB (CK-2) C-Reactive Protein NT-Pro-B Natriuret Pep Total Protein Albumin Arterial Blood Glucose Urine WBC (Auto) Urine Creatinine 01/27/20 01/27/20 01/27/20 05:43 12:06 17:16 WBC RBC Hgb Hct MCHC RDW MCV MCH Lymph % (Auto) [place] % (Auto) [place] # Eos # Lymph # (Auto) [place] # (Auto) Eos # (Auto) Seg Neutrophils % Seg Neuts % (Manual) Baso # (Auto) Lymphocytes % (Manual) Monocytes % (Manual) Eosinophils % (Manual) Basophils % (Manual) Seg Neutrophils # Seg Neutrophils # Man Lymphocytes # (Manual) Monocytes # (Manual) Eosinophils # (Manual) Nucleated RBC % Basophils # (Manual) PT INR APTT Heparin Anti-Xa Level ABG pH POC ABG pO2 ABG pO2 ABG HCO3 ABG O2 Saturation ABG Base Excess POC ABG pCO2 ABG Hemoglobin ABG Oxyhemoglobin ABG Chloride ABG Glucose Oxyhemoglobin Sodium Potassium Chloride Carbon Dioxide BUN Creatinine Glucose POC Glucose 143 H 142 H 128 H Lactic Acid Calcium Phosphorus Magnesium AST ALT Lactate Dehydrogenase Total Bilirubin Direct Bilirubin CK-MB (CK-2) C-Reactive Protein NT-Pro-B Natriuret Pep Total Protein Albumin Arterial Blood Glucose Urine WBC (Auto) Urine Creatinine 01/27/20 01/28/20 01/28/20 23:55 04:37 05:55 WBC RBC Hgb 9.4 L Hct 29.9 L MCHC RDW MCV MCH Lymph % (Auto) [place] % (Auto) [place] # Eos # Lymph # (Auto) [place] # (Auto) Eos # (Auto) Seg Neutrophils % Seg Neuts % (Manual) Baso # (Auto) Lymphocytes % (Manual) Monocytes % (Manual) Eosinophils % (Manual) Basophils % (Manual) Seg Neutrophils # Seg Neutrophils # Man Lymphocytes # (Manual) Monocytes # (Manual) Eosinophils # (Manual) Nucleated RBC % Basophils # (Manual) PT INR APTT Heparin Anti-Xa Level ABG pH POC ABG pO2 ABG pO2 ABG HCO3 ABG O2 Saturation ABG Base Excess POC ABG pCO2 ABG Hemoglobin ABG Oxyhemoglobin ABG Chloride ABG Glucose Oxyhemoglobin Sodium Potassium Chloride Carbon Dioxide BUN Creatinine Glucose POC Glucose 166 H 169 H Lactic Acid Calcium Phosphorus Magnesium AST ALT Lactate Dehydrogenase Total Bilirubin Direct Bilirubin CK-MB (CK-2) C-Reactive Protein NT-Pro-B Natriuret Pep Total Protein Albumin Arterial Blood Glucose Urine WBC (Auto) Urine Creatinine 01/28/20 01/28/20 01/28/20 11:58 17:26 23:46 WBC RBC Hgb Hct MCHC RDW MCV MCH Lymph % (Auto) [place] % (Auto) [place] # Eos # Lymph # (Auto) [place] # (Auto) Eos # (Auto) Seg Neutrophils % Seg Neuts % (Manual) Baso # (Auto) Lymphocytes % (Manual) Monocytes % (Manual) Eosinophils % (Manual) Basophils % (Manual) Seg Neutrophils # Seg Neutrophils # Man Lymphocytes # (Manual) Monocytes # (Manual) Eosinophils # (Manual) Nucleated RBC % Basophils # (Manual) PT INR APTT Heparin Anti-Xa Level ABG pH POC ABG pO2 ABG pO2 ABG HCO3 ABG O2 Saturation ABG Base Excess POC ABG pCO2 ABG Hemoglobin ABG Oxyhemoglobin ABG Chloride ABG Glucose Oxyhemoglobin Sodium Potassium Chloride Carbon Dioxide BUN Creatinine Glucose POC Glucose 130 H 126 H 150 H Lactic Acid Calcium Phosphorus Magnesium AST ALT Lactate Dehydrogenase Total Bilirubin Direct Bilirubin CK-MB (CK-2) C-Reactive Protein NT-Pro-B Natriuret Pep Total Protein Albumin Arterial Blood Glucose Urine WBC (Auto) Urine Creatinine 01/29/20 01/29/20 01/29/20 04:55 06:00 12:28 WBC RBC Hgb Hct MCHC RDW MCV MCH Lymph % (Auto) [place] % (Auto) [place] # Eos # Lymph # (Auto) [place] # (Auto) Eos # (Auto) Seg Neutrophils % Seg Neuts % (Manual) Baso # (Auto) Lymphocytes % (Manual) Monocytes % (Manual) Eosinophils % (Manual) Basophils % (Manual) Seg Neutrophils # Seg Neutrophils # Man Lymphocytes # (Manual) Monocytes # (Manual) Eosinophils # (Manual) Nucleated RBC % Basophils # (Manual) PT INR APTT Heparin Anti-Xa Level ABG pH POC ABG pO2 ABG pO2 ABG HCO3 ABG O2 Saturation ABG Base Excess POC ABG pCO2 ABG Hemoglobin ABG Oxyhemoglobin ABG Chloride ABG Glucose Oxyhemoglobin Sodium Potassium Chloride Carbon Dioxide 34 H BUN Creatinine 0.6 L Glucose 152 H POC Glucose 157 H 156 H Lactic Acid Calcium Phosphorus Magnesium AST ALT Lactate Dehydrogenase Total Bilirubin Direct Bilirubin CK-MB (CK-2) C-Reactive Protein NT-Pro-B Natriuret Pep Total Protein Albumin Arterial Blood Glucose Urine WBC (Auto) Urine Creatinine 01/29/20 01/30/20 01/30/20 19:06 00:29 05:39 WBC RBC Hgb Hct MCHC RDW MCV MCH Lymph % (Auto) [place] % (Auto) [place] # Eos # Lymph # (Auto) [place] # (Auto) Eos # (Auto) Seg Neutrophils % Seg Neuts % (Manual) Baso # (Auto) Lymphocytes % (Manual) Monocytes % (Manual) Eosinophils % (Manual) Basophils % (Manual) Seg Neutrophils # Seg Neutrophils # Man Lymphocytes # (Manual) Monocytes # (Manual) Eosinophils # (Manual) Nucleated RBC % Basophils # (Manual) PT INR APTT Heparin Anti-Xa Level ABG pH POC ABG pO2 ABG pO2 ABG HCO3 ABG O2 Saturation ABG Base Excess POC ABG pCO2 ABG Hemoglobin ABG Oxyhemoglobin ABG Chloride ABG Glucose Oxyhemoglobin Sodium Potassium Chloride Carbon Dioxide BUN Creatinine Glucose POC Glucose 152 H 132 H 159 H Lactic Acid Calcium Phosphorus Magnesium AST ALT Lactate Dehydrogenase Total Bilirubin Direct Bilirubin CK-MB (CK-2) C-Reactive Protein NT-Pro-B Natriuret Pep Total Protein Albumin Arterial Blood Glucose Urine WBC (Auto) Urine Creatinine 01/30/20 01/30/20 01/30/20 12:27 17:42 23:28 WBC RBC Hgb Hct MCHC RDW MCV MCH Lymph % (Auto) [place] % (Auto) [place] # Eos # Lymph # (Auto) [place] # (Auto) Eos # (Auto) Seg Neutrophils % Seg Neuts % (Manual) Baso # (Auto) Lymphocytes % (Manual) Monocytes % (Manual) Eosinophils % (Manual) Basophils % (Manual) Seg Neutrophils # Seg Neutrophils # Man Lymphocytes # (Manual) Monocytes # (Manual) Eosinophils # (Manual) Nucleated RBC % Basophils # (Manual) PT INR APTT Heparin Anti-Xa Level ABG pH POC ABG pO2 ABG pO2 ABG HCO3 ABG O2 Saturation ABG Base Excess POC ABG pCO2 ABG Hemoglobin ABG Oxyhemoglobin ABG Chloride ABG Glucose Oxyhemoglobin Sodium Potassium Chloride Carbon Dioxide BUN Creatinine Glucose POC Glucose 151 H 144 H 164 H Lactic Acid Calcium Phosphorus Magnesium AST ALT Lactate Dehydrogenase Total Bilirubin Direct Bilirubin CK-MB (CK-2) C-Reactive Protein NT-Pro-B Natriuret Pep Total Protein Albumin Arterial Blood Glucose Urine WBC (Auto) Urine Creatinine 01/31/20 01/31/20 01/31/20 05:51 11:51 18:06 WBC RBC Hgb Hct MCHC RDW MCV MCH Lymph % (Auto) [place] % (Auto) [place] # Eos # Lymph # (Auto) [place] # (Auto) Eos # (Auto) Seg Neutrophils % Seg Neuts % (Manual) Baso # (Auto) Lymphocytes % (Manual) Monocytes % (Manual) Eosinophils % (Manual) Basophils % (Manual) Seg Neutrophils # Seg Neutrophils # Man Lymphocytes # (Manual) Monocytes # (Manual) Eosinophils # (Manual) Nucleated RBC % Basophils # (Manual) PT INR APTT Heparin Anti-Xa Level ABG pH POC ABG pO2 ABG pO2 ABG HCO3 ABG O2 Saturation ABG Base Excess POC ABG pCO2 ABG Hemoglobin ABG Oxyhemoglobin ABG Chloride ABG Glucose Oxyhemoglobin Sodium Potassium Chloride Carbon Dioxide BUN Creatinine Glucose POC Glucose 131 H 167 H 210 H Lactic Acid Calcium Phosphorus Magnesium AST ALT Lactate Dehydrogenase Total Bilirubin Direct Bilirubin CK-MB (CK-2) C-Reactive Protein NT-Pro-B Natriuret Pep Total Protein Albumin Arterial Blood Glucose Urine WBC (Auto) Urine Creatinine 01/31/20 01/31/20 02/01/20 19:24 Unknown 00:34 WBC RBC Hgb Hct MCHC RDW MCV MCH Lymph % (Auto) [place] % (Auto) [place] # Eos # Lymph # (Auto) [place] # (Auto) Eos # (Auto) Seg Neutrophils % Seg Neuts % (Manual) Baso # (Auto) Lymphocytes % (Manual) Monocytes % (Manual) Eosinophils % (Manual) Basophils % (Manual) Seg Neutrophils # Seg Neutrophils # Man Lymphocytes # (Manual) Monocytes # (Manual) Eosinophils # (Manual) Nucleated RBC % Basophils # (Manual) PT INR APTT Heparin Anti-Xa Level ABG pH POC ABG pO2 ABG pO2 ABG HCO3 ABG O2 Saturation ABG Base Excess POC ABG pCO2 ABG Hemoglobin ABG Oxyhemoglobin ABG Chloride ABG Glucose Oxyhemoglobin Sodium Potassium Chloride 95.3 L Carbon Dioxide 33 H BUN 36 H Creatinine Glucose 187 H POC Glucose 116 H Lactic Acid Calcium Phosphorus Magnesium AST ALT Lactate Dehydrogenase Total Bilirubin Direct Bilirubin CK-MB (CK-2) C-Reactive Protein NT-Pro-B Natriuret Pep Total Protein Albumin Arterial Blood Glucose Urine WBC (Auto) Urine Creatinine 57.4 H 02/01/20 02/01/20 02/01/20 05:24 10:40 12:29 WBC RBC Hgb Hct MCHC RDW MCV MCH Lymph % (Auto) [place] % (Auto) [place] # Eos # Lymph # (Auto) [place] # (Auto) Eos # (Auto) Seg Neutrophils % Seg Neuts % (Manual) Baso # (Auto) Lymphocytes % (Manual) Monocytes % (Manual) Eosinophils % (Manual) Basophils % (Manual) Seg Neutrophils # Seg Neutrophils # Man Lymphocytes # (Manual) Monocytes # (Manual) Eosinophils # (Manual) Nucleated RBC % Basophils # (Manual) PT INR APTT Heparin Anti-Xa Level ABG pH POC ABG pO2 ABG pO2 ABG HCO3 ABG O2 Saturation ABG Base Excess POC ABG pCO2 ABG Hemoglobin ABG Oxyhemoglobin ABG Chloride ABG Glucose Oxyhemoglobin Sodium Potassium Chloride Carbon Dioxide BUN Creatinine Glucose POC Glucose 142 H 165 H 151 H Lactic Acid Calcium Phosphorus Magnesium AST ALT Lactate Dehydrogenase Total Bilirubin Direct Bilirubin CK-MB (CK-2) C-Reactive Protein NT-Pro-B Natriuret Pep Total Protein Albumin Arterial Blood Glucose Urine WBC (Auto) Urine Creatinine 02/01/20 02/01/20 02/02/20 17:16 23:23 06:36 WBC RBC Hgb Hct MCHC RDW MCV MCH Lymph % (Auto) [place] % (Auto) [place] # Eos # Lymph # (Auto) [place] # (Auto) Eos # (Auto) Seg Neutrophils % Seg Neuts % (Manual) Baso # (Auto) Lymphocytes % (Manual) Monocytes % (Manual) Eosinophils % (Manual) Basophils % (Manual) Seg Neutrophils # Seg Neutrophils # Man Lymphocytes # (Manual) Monocytes # (Manual) Eosinophils # (Manual) Nucleated RBC % Basophils # (Manual) PT INR APTT Heparin Anti-Xa Level ABG pH POC ABG pO2 ABG pO2 ABG HCO3 ABG O2 Saturation ABG Base Excess POC ABG pCO2 ABG Hemoglobin ABG Oxyhemoglobin ABG Chloride ABG Glucose Oxyhemoglobin Sodium Potassium Chloride Carbon Dioxide BUN Creatinine Glucose POC Glucose 137 H 145 H 181 H Lactic Acid Calcium Phosphorus Magnesium AST ALT Lactate Dehydrogenase Total Bilirubin Direct Bilirubin CK-MB (CK-2) C-Reactive Protein NT-Pro-B Natriuret Pep Total Protein Albumin Arterial Blood Glucose Urine WBC (Auto) Urine Creatinine 02/02/20 02/02/20 02/02/20 10:01 12:05 17:54 WBC RBC Hgb Hct MCHC RDW MCV MCH Lymph % (Auto) [place] % (Auto) [place] # Eos # Lymph # (Auto) [place] # (Auto) Eos # (Auto) Seg Neutrophils % Seg Neuts % (Manual) Baso # (Auto) Lymphocytes % (Manual) Monocytes % (Manual) Eosinophils % (Manual) Basophils % (Manual) Seg Neutrophils # Seg Neutrophils # Man Lymphocytes # (Manual) Monocytes # (Manual) Eosinophils # (Manual) Nucleated RBC % Basophils # (Manual) PT INR APTT Heparin Anti-Xa Level ABG pH POC ABG pO2 ABG pO2 ABG HCO3 ABG O2 Saturation ABG Base Excess POC ABG pCO2 ABG Hemoglobin ABG Oxyhemoglobin ABG Chloride ABG Glucose Oxyhemoglobin Sodium Potassium Chloride 95.3 L Carbon Dioxide BUN 44 H Creatinine Glucose 234 H POC Glucose 184 H 127 H Lactic Acid Calcium Phosphorus Magnesium AST 363 H ALT 457 H Lactate Dehydrogenase Total Bilirubin Direct Bilirubin CK-MB (CK-2) C-Reactive Protein NT-Pro-B Natriuret Pep Total Protein Albumin 3.0 L Arterial Blood Glucose Urine WBC (Auto) Urine Creatinine 02/02/20 02/03/20 02/03/20 23:47 05:32 07:04 WBC 13.0 H RBC Hgb 9.5 L Hct 30.8 L MCHC 31 L RDW 19.6 H MCV 81 L MCH 25 L Lymph % (Auto) [place] % (Auto) 9.4 H [place] # Eos # Lymph # (Auto) [place] # (Auto) 1.2 H Eos # (Auto) Seg Neutrophils % 72.3 H Seg Neuts % (Manual) Baso # (Auto) Lymphocytes % (Manual) Monocytes % (Manual) Eosinophils % (Manual) Basophils % (Manual) Seg Neutrophils # 9.4 H Seg Neutrophils # Man Lymphocytes # (Manual) Monocytes # (Manual) Eosinophils # (Manual) Nucleated RBC % Basophils # (Manual) PT INR APTT Heparin Anti-Xa Level ABG pH POC ABG pO2 ABG pO2 ABG HCO3 ABG O2 Saturation ABG Base Excess POC ABG pCO2 ABG Hemoglobin ABG Oxyhemoglobin ABG Chloride ABG Glucose Oxyhemoglobin Sodium Potassium Chloride Carbon Dioxide BUN Creatinine Glucose POC Glucose 124 H 129 H Lactic Acid Calcium Phosphorus Magnesium AST ALT Lactate Dehydrogenase Total Bilirubin Direct Bilirubin CK-MB (CK-2) C-Reactive Protein NT-Pro-B Natriuret Pep Total Protein Albumin Arterial Blood Glucose Urine WBC (Auto) Urine Creatinine 02/03/20 02/03/20 02/03/20 07:04 11:32 12:49 WBC RBC Hgb Hct MCHC RDW MCV MCH Lymph % (Auto) [place] % (Auto) [place] # Eos # Lymph # (Auto) [place] # (Auto) Eos # (Auto) Seg Neutrophils % Seg Neuts % (Manual) Baso # (Auto) Lymphocytes % (Manual) Monocytes % (Manual) Eosinophils % (Manual) Basophils % (Manual) Seg Neutrophils # Seg Neutrophils # Man Lymphocytes # (Manual) Monocytes # (Manual) Eosinophils # (Manual) Nucleated RBC % Basophils # (Manual) PT INR APTT Heparin Anti-Xa Level ABG pH POC ABG pO2 ABG pO2 ABG HCO3 ABG O2 Saturation ABG Base Excess POC ABG pCO2 ABG Hemoglobin ABG Oxyhemoglobin ABG Chloride ABG Glucose Oxyhemoglobin Sodium Potassium Chloride 97.9 L Carbon Dioxide 33 H BUN 39 H Creatinine Glucose 119 H POC Glucose 138 H Lactic Acid Calcium Phosphorus Magnesium 2.60 H AST ALT Lactate Dehydrogenase Total Bilirubin Direct Bilirubin CK-MB (CK-2) C-Reactive Protein NT-Pro-B Natriuret Pep Total Protein Albumin Arterial Blood Glucose Urine WBC (Auto) Urine Creatinine 02/03/20 02/04/20 02/04/20 18:28 16:24 16:24 WBC RBC 3.38 L Hgb 8.6 L Hct 26.9 L MCHC RDW 19.5 H MCV 80 L MCH 26 L Lymph % (Auto) [place] % (Auto) [place] # Eos # Lymph # (Auto) [place] # (Auto) Eos # (Auto) Seg Neutrophils % Seg Neuts % (Manual) Baso # (Auto) Lymphocytes % (Manual) Monocytes % (Manual) Eosinophils % (Manual) Basophils % (Manual) Seg Neutrophils # Seg Neutrophils # Man Lymphocytes # (Manual) Monocytes # (Manual) Eosinophils # (Manual) Nucleated RBC % Basophils # (Manual) PT INR APTT Heparin Anti-Xa Level ABG pH POC ABG pO2 ABG pO2 ABG HCO3 ABG O2 Saturation ABG Base Excess POC ABG pCO2 ABG Hemoglobin ABG Oxyhemoglobin ABG Chloride ABG Glucose Oxyhemoglobin Sodium Potassium 3.4 L Chloride Carbon Dioxide 31 H BUN 37 H Creatinine Glucose 70 L POC Glucose 118 H Lactic Acid Calcium Phosphorus Magnesium AST 169 H ALT 394 H Lactate Dehydrogenase Total Bilirubin 1.50 H Direct Bilirubin CK-MB (CK-2) C-Reactive Protein NT-Pro-B Natriuret Pep Total Protein Albumin 2.9 L Arterial Blood Glucose Urine WBC (Auto) Urine Creatinine 02/05/20 02/05/20 02/05/20 00:41 06:37 17:14 WBC RBC Hgb Hct MCHC RDW MCV MCH Lymph % (Auto) [place] % (Auto) [place] # Eos # Lymph # (Auto) [place] # (Auto) Eos # (Auto) Seg Neutrophils % Seg Neuts % (Manual) Baso # (Auto) Lymphocytes % (Manual) Monocytes % (Manual) Eosinophils % (Manual) Basophils % (Manual) Seg Neutrophils # Seg Neutrophils # Man Lymphocytes # (Manual) Monocytes # (Manual) Eosinophils # (Manual) Nucleated RBC % Basophils # (Manual) PT INR APTT Heparin Anti-Xa Level ABG pH POC ABG pO2 ABG pO2 ABG HCO3 ABG O2 Saturation ABG Base Excess POC ABG pCO2 ABG Hemoglobin ABG Oxyhemoglobin ABG Chloride ABG Glucose Oxyhemoglobin Sodium Potassium 3.1 L Chloride Carbon Dioxide 35 H BUN 32 H Creatinine 0.7 L Glucose POC Glucose 69 L 127 H Lactic Acid Calcium Phosphorus Magnesium AST 134 H ALT 352 H Lactate Dehydrogenase Total Bilirubin 1.60 H Direct Bilirubin CK-MB (CK-2) C-Reactive Protein NT-Pro-B Natriuret Pep Total Protein Albumin 2.9 L Arterial Blood Glucose Urine WBC (Auto) Urine Creatinine 02/05/20 02/06/20 02/06/20 23:43 05:32 08:01 WBC RBC Hgb Hct MCHC RDW MCV MCH Lymph % (Auto) [place] % (Auto) [place] # Eos # Lymph # (Auto) [place] # (Auto) Eos # (Auto) Seg Neutrophils % Seg Neuts % (Manual) Baso # (Auto) Lymphocytes % (Manual) Monocytes % (Manual) Eosinophils % (Manual) Basophils % (Manual) Seg Neutrophils # Seg Neutrophils # Man Lymphocytes # (Manual) Monocytes # (Manual) Eosinophils # (Manual) Nucleated RBC % Basophils # (Manual) PT INR APTT Heparin Anti-Xa Level ABG pH POC ABG pO2 ABG pO2 ABG HCO3 ABG O2 Saturation ABG Base Excess POC ABG pCO2 ABG Hemoglobin ABG Oxyhemoglobin ABG Chloride ABG Glucose Oxyhemoglobin Sodium Potassium Chloride Carbon Dioxide BUN 40 H Creatinine Glucose 132 H POC Glucose 129 H 131 H Lactic Acid Calcium Phosphorus Magnesium AST ALT Lactate Dehydrogenase Total Bilirubin Direct Bilirubin CK-MB (CK-2) C-Reactive Protein NT-Pro-B Natriuret Pep Total Protein Albumin Arterial Blood Glucose Urine WBC (Auto) Urine Creatinine 02/06/20 02/06/20 02/06/20 11:51 16:28 17:32 WBC RBC Hgb Hct MCHC RDW MCV MCH Lymph % (Auto) [place] % (Auto) [place] # Eos # Lymph # (Auto) [place] # (Auto) Eos # (Auto) Seg Neutrophils % Seg Neuts % (Manual) Baso # (Auto) Lymphocytes % (Manual) Monocytes % (Manual) Eosinophils % (Manual) Basophils % (Manual) Seg Neutrophils # Seg Neutrophils # Man Lymphocytes # (Manual) Monocytes # (Manual) Eosinophils # (Manual) Nucleated RBC % Basophils # (Manual) PT INR APTT Heparin Anti-Xa Level ABG pH POC ABG pO2 ABG pO2 ABG HCO3 ABG O2 Saturation ABG Base Excess POC ABG pCO2 ABG Hemoglobin ABG Oxyhemoglobin ABG Chloride ABG Glucose Oxyhemoglobin Sodium Potassium Chloride Carbon Dioxide BUN Creatinine Glucose POC Glucose 167 H 129 H Lactic Acid Calcium Phosphorus Magnesium AST 824 H ALT 948 H Lactate Dehydrogenase Total Bilirubin 1.70 H Direct Bilirubin 1.2 H CK-MB (CK-2) C-Reactive Protein NT-Pro-B Natriuret Pep Total Protein Albumin 2.9 L Arterial Blood Glucose Urine WBC (Auto) Urine Creatinine 02/07/20 02/07/20 02/07/20 00:11 04:57 04:57 WBC RBC Hgb 9.2 L Hct 29.7 L MCHC 31 L RDW 20.2 H MCV 80 L MCH 25 L Lymph % (Auto) [place] % (Auto) [place] # Eos # Lymph # (Auto) [place] # (Auto) Eos # (Auto) Seg Neutrophils % Seg Neuts % (Manual) Baso # (Auto) Lymphocytes % (Manual) Monocytes % (Manual) Eosinophils % (Manual) Basophils % (Manual) Seg Neutrophils # Seg Neutrophils # Man Lymphocytes # (Manual) Monocytes # (Manual) Eosinophils # (Manual) Nucleated RBC % Basophils # (Manual) PT INR APTT Heparin Anti-Xa Level ABG pH POC ABG pO2 ABG pO2 ABG HCO3 ABG O2 Saturation ABG Base Excess POC ABG pCO2 ABG Hemoglobin ABG Oxyhemoglobin ABG Chloride ABG Glucose Oxyhemoglobin Sodium Potassium 3.4 L D Chloride Carbon Dioxide 32 H BUN 39 H Creatinine Glucose 106 H POC Glucose 121 H Lactic Acid Calcium Phosphorus Magnesium AST ALT Lactate Dehydrogenase Total Bilirubin Direct Bilirubin CK-MB (CK-2) C-Reactive Protein NT-Pro-B Natriuret Pep Total Protein Albumin Arterial Blood Glucose Urine WBC (Auto) Urine Creatinine 02/07/20 02/07/20 02/07/20 15:03 15:03 17:11 WBC RBC Hgb Hct MCHC RDW MCV MCH Lymph % (Auto) [place] % (Auto) [place] # Eos # Lymph # (Auto) [place] # (Auto) Eos # (Auto) Seg Neutrophils % Seg Neuts % (Manual) Baso # (Auto) Lymphocytes % (Manual) Monocytes % (Manual) Eosinophils % (Manual) Basophils % (Manual) Seg Neutrophils # Seg Neutrophils # Man Lymphocytes # (Manual) Monocytes # (Manual) Eosinophils # (Manual) Nucleated RBC % Basophils # (Manual) PT 27.0 H INR 2.46 H APTT Heparin Anti-Xa Level ABG pH POC ABG pO2 ABG pO2 ABG HCO3 ABG O2 Saturation ABG Base Excess POC ABG pCO2 ABG Hemoglobin ABG Oxyhemoglobin ABG Chloride ABG Glucose Oxyhemoglobin Sodium Potassium Chloride Carbon Dioxide BUN Creatinine Glucose POC Glucose 109 H Lactic Acid Calcium Phosphorus Magnesium AST 424 H ALT 796 H Lactate Dehydrogenase Total Bilirubin 1.60 H Direct Bilirubin 1.2 H CK-MB (CK-2) C-Reactive Protein NT-Pro-B Natriuret Pep Total Protein Albumin 2.9 L Arterial Blood Glucose Urine WBC (Auto) Urine Creatinine 02/08/20 02/08/20 02/08/20 12:14 17:44 19:00 WBC RBC Hgb Hct MCHC RDW MCV MCH Lymph % (Auto) [place] % (Auto) [place] # Eos # Lymph # (Auto) [place] # (Auto) Eos # (Auto) Seg Neutrophils % Seg Neuts % (Manual) Baso # (Auto) Lymphocytes % (Manual) Monocytes % (Manual) Eosinophils % (Manual) Basophils % (Manual) Seg Neutrophils # Seg Neutrophils # Man Lymphocytes # (Manual) Monocytes # (Manual) Eosinophils # (Manual) Nucleated RBC % Basophils # (Manual) PT INR APTT Heparin Anti-Xa Level ABG pH POC ABG pO2 ABG pO2 ABG HCO3 ABG O2 Saturation ABG Base Excess POC ABG pCO2 ABG Hemoglobin ABG Oxyhemoglobin ABG Chloride ABG Glucose Oxyhemoglobin Sodium Potassium Chloride Carbon Dioxide BUN Creatinine Glucose POC Glucose 111 H 107 H Lactic Acid Calcium Phosphorus Magnesium AST 309 H ALT 650 H Lactate Dehydrogenase Total Bilirubin 1.30 H Direct Bilirubin 0.9 H CK-MB (CK-2) C-Reactive Protein NT-Pro-B Natriuret Pep Total Protein 6.2 L Albumin 2.7 L Arterial Blood Glucose Urine WBC (Auto) Urine Creatinine 02/09/20 02/09/20 02/09/20 05:41 12:28 18:07 WBC RBC Hgb Hct MCHC RDW MCV MCH Lymph % (Auto) [place] % (Auto) [place] # Eos # Lymph # (Auto) [place] # (Auto) Eos # (Auto) Seg Neutrophils % Seg Neuts % (Manual) Baso # (Auto) Lymphocytes % (Manual) Monocytes % (Manual) Eosinophils % (Manual) Basophils % (Manual) Seg Neutrophils # Seg Neutrophils # Man Lymphocytes # (Manual) Monocytes # (Manual) Eosinophils # (Manual) Nucleated RBC % Basophils # (Manual) PT INR APTT Heparin Anti-Xa Level ABG pH POC ABG pO2 ABG pO2 ABG HCO3 ABG O2 Saturation ABG Base Excess POC ABG pCO2 ABG Hemoglobin ABG Oxyhemoglobin ABG Chloride ABG Glucose Oxyhemoglobin Sodium Potassium Chloride Carbon Dioxide BUN Creatinine Glucose POC Glucose 113 H 140 H 143 H Lactic Acid Calcium Phosphorus Magnesium AST ALT Lactate Dehydrogenase Total Bilirubin Direct Bilirubin CK-MB (CK-2) C-Reactive Protein NT-Pro-B Natriuret Pep Total Protein Albumin Arterial Blood Glucose Urine WBC (Auto) Urine Creatinine 02/09/20 02/09/20 02/10/20 21:40 23:45 06:00 WBC RBC Hgb Hct MCHC RDW MCV MCH Lymph % (Auto) [place] % (Auto) [place] # Eos # Lymph # (Auto) [place] # (Auto) Eos # (Auto) Seg Neutrophils % Seg Neuts % (Manual) Baso # (Auto) Lymphocytes % (Manual) Monocytes % (Manual) Eosinophils % (Manual) Basophils % (Manual) Seg Neutrophils # Seg Neutrophils # Man Lymphocytes # (Manual) Monocytes # (Manual) Eosinophils # (Manual) Nucleated RBC % Basophils # (Manual) PT INR APTT Heparin Anti-Xa Level ABG pH POC ABG pO2 ABG pO2 59.8 L ABG HCO3 33.3 H ABG O2 Saturation 88.9 L ABG Base Excess 7.4 H POC ABG pCO2 ABG Hemoglobin 10.4 L ABG Oxyhemoglobin ABG Chloride ABG Glucose Oxyhemoglobin 86.3 L Sodium Potassium Chloride Carbon Dioxide BUN Creatinine Glucose POC Glucose 127 H 114 H Lactic Acid Calcium Phosphorus Magnesium AST ALT Lactate Dehydrogenase Total Bilirubin Direct Bilirubin CK-MB (CK-2) C-Reactive Protein NT-Pro-B Natriuret Pep Total Protein Albumin Arterial Blood Glucose Urine WBC (Auto) Urine Creatinine 02/10/20 02/10/20 02/10/20 07:40 07:40 13:38 WBC 11.5 H RBC Hgb 10.6 L Hct 34.7 L MCHC 31 L RDW 19.8 H MCV 79 L MCH 24 L Lymph % (Auto) [place] % (Auto) 9.2 H [place] # Eos # Lymph # (Auto) [place] # (Auto) 1.1 H Eos # (Auto) Seg Neutrophils % Seg Neuts % (Manual) Baso # (Auto) Lymphocytes % (Manual) Monocytes % (Manual) Eosinophils % (Manual) Basophils % (Manual) Seg Neutrophils # Seg Neutrophils # Man Lymphocytes # (Manual) Monocytes # (Manual) Eosinophils # (Manual) Nucleated RBC % Basophils # (Manual) PT INR APTT Heparin Anti-Xa Level ABG pH POC ABG pO2 ABG pO2 ABG HCO3 ABG O2 Saturation ABG Base Excess POC ABG pCO2 ABG Hemoglobin ABG Oxyhemoglobin ABG Chloride ABG Glucose Oxyhemoglobin Sodium 151 H Potassium Chloride 107.2 H Carbon Dioxide 36 H BUN 25 H Creatinine 0.7 L Glucose 114 H POC Glucose 116 H Lactic Acid Calcium Phosphorus Magnesium 2.40 H AST ALT Lactate Dehydrogenase Total Bilirubin Direct Bilirubin CK-MB (CK-2) C-Reactive Protein NT-Pro-B Natriuret Pep Total Protein Albumin Arterial Blood Glucose Urine WBC (Auto) Urine Creatinine 02/10/20 02/11/20 02/11/20 17:44 05:47 12:21 WBC RBC Hgb Hct MCHC RDW MCV MCH Lymph % (Auto) [place] % (Auto) [place] # Eos # Lymph # (Auto) [place] # (Auto) Eos # (Auto) Seg Neutrophils % Seg Neuts % (Manual) Baso # (Auto) Lymphocytes % (Manual) Monocytes % (Manual) Eosinophils % (Manual) Basophils % (Manual) Seg Neutrophils # Seg Neutrophils # Man Lymphocytes # (Manual) Monocytes # (Manual) Eosinophils # (Manual) Nucleated RBC % Basophils # (Manual) PT INR APTT Heparin Anti-Xa Level ABG pH POC ABG pO2 ABG pO2 ABG HCO3 ABG O2 Saturation ABG Base Excess POC ABG pCO2 ABG Hemoglobin ABG Oxyhemoglobin ABG Chloride ABG Glucose Oxyhemoglobin Sodium Potassium Chloride Carbon Dioxide BUN Creatinine Glucose POC Glucose 139 H 173 H 143 H Lactic Acid Calcium Phosphorus Magnesium AST ALT Lactate Dehydrogenase Total Bilirubin Direct Bilirubin CK-MB (CK-2) C-Reactive Protein NT-Pro-B Natriuret Pep Total Protein Albumin Arterial Blood Glucose Urine WBC (Auto) Urine Creatinine 02/11/20 02/11/20 02/12/20 13:43 14:11 00:15 WBC RBC Hgb Hct MCHC RDW MCV MCH Lymph % (Auto) [place] % (Auto) [place] # Eos # Lymph # (Auto) [place] # (Auto) Eos # (Auto) Seg Neutrophils % Seg Neuts % (Manual) Baso # (Auto) Lymphocytes % (Manual) Monocytes % (Manual) Eosinophils % (Manual) Basophils % (Manual) Seg Neutrophils # Seg Neutrophils # Man Lymphocytes # (Manual) Monocytes # (Manual) Eosinophils # (Manual) Nucleated RBC % Basophils # (Manual) PT INR APTT Heparin Anti-Xa Level ABG pH 7.502 H POC ABG pO2 77.7 L ABG pO2 ABG HCO3 ABG O2 Saturation ABG Base Excess POC ABG pCO2 ABG Hemoglobin 11.1 L ABG Oxyhemoglobin ABG Chloride 108.0 H ABG Glucose 151 H Oxyhemoglobin Sodium Potassium Chloride Carbon Dioxide BUN Creatinine Glucose POC Glucose 130 H 125 H Lactic Acid Calcium Phosphorus Magnesium AST ALT Lactate Dehydrogenase Total Bilirubin Direct Bilirubin CK-MB (CK-2) C-Reactive Protein NT-Pro-B Natriuret Pep Total Protein Albumin Arterial Blood Glucose 151 H Urine WBC (Auto) Urine Creatinine 02/12/20 02/12/20 02/12/20 04:56 04:56 17:42 WBC RBC Hgb 9.9 L Hct 31.8 L MCHC 31 L RDW 19.4 H MCV 79 L MCH 25 L Lymph % (Auto) [place] % (Auto) 10.3 H [place] # Eos # Lymph # (Auto) [place] # (Auto) 1.0 H Eos # (Auto) Seg Neutrophils % Seg Neuts % (Manual) Baso # (Auto) Lymphocytes % (Manual) Monocytes % (Manual) Eosinophils % (Manual) Basophils % (Manual) Seg Neutrophils # Seg Neutrophils # Man Lymphocytes # (Manual) Monocytes # (Manual) Eosinophils # (Manual) Nucleated RBC % Basophils # (Manual) PT INR APTT Heparin Anti-Xa Level ABG pH POC ABG pO2 ABG pO2 ABG HCO3 ABG O2 Saturation ABG Base Excess POC ABG pCO2 ABG Hemoglobin ABG Oxyhemoglobin ABG Chloride ABG Glucose Oxyhemoglobin Sodium 149 H Potassium Chloride 108.6 H Carbon Dioxide BUN 28 H Creatinine 0.7 L Glucose 108 H POC Glucose 113 H Lactic Acid Calcium Phosphorus Magnesium AST ALT Lactate Dehydrogenase Total Bilirubin Direct Bilirubin CK-MB (CK-2) C-Reactive Protein NT-Pro-B Natriuret Pep Total Protein Albumin Arterial Blood Glucose Urine WBC (Auto) Urine Creatinine 02/13/20 02/13/20 02/13/20 00:39 05:36 12:25 WBC RBC Hgb Hct MCHC RDW MCV MCH Lymph % (Auto) [place] % (Auto) [place] # Eos # Lymph # (Auto) [place] # (Auto) Eos # (Auto) Seg Neutrophils % Seg Neuts % (Manual) Baso # (Auto) Lymphocytes % (Manual) Monocytes % (Manual) Eosinophils % (Manual) Basophils % (Manual) Seg Neutrophils # Seg Neutrophils # Man Lymphocytes # (Manual) Monocytes # (Manual) Eosinophils # (Manual) Nucleated RBC % Basophils # (Manual) PT INR APTT Heparin Anti-Xa Level ABG pH POC ABG pO2 ABG pO2 ABG HCO3 ABG O2 Saturation ABG Base Excess POC ABG pCO2 ABG Hemoglobin ABG Oxyhemoglobin ABG Chloride ABG Glucose Oxyhemoglobin Sodium Potassium Chloride Carbon Dioxide BUN Creatinine Glucose POC Glucose 129 H 126 H 129 H Lactic Acid Calcium Phosphorus Magnesium AST ALT Lactate Dehydrogenase Total Bilirubin Direct Bilirubin CK-MB (CK-2) C-Reactive Protein NT-Pro-B Natriuret Pep Total Protein Albumin Arterial Blood Glucose Urine WBC (Auto) Urine Creatinine 02/13/20 02/14/20 02/14/20 17:59 00:15 05:41 WBC RBC Hgb Hct MCHC RDW MCV MCH Lymph % (Auto) [place] % (Auto) [place] # Eos # Lymph # (Auto) [place] # (Auto) Eos # (Auto) Seg Neutrophils % Seg Neuts % (Manual) Baso # (Auto) Lymphocytes % (Manual) Monocytes % (Manual) Eosinophils % (Manual) Basophils % (Manual) Seg Neutrophils # Seg Neutrophils # Man Lymphocytes # (Manual) Monocytes # (Manual) Eosinophils # (Manual) Nucleated RBC % Basophils # (Manual) PT INR APTT Heparin Anti-Xa Level ABG pH POC ABG pO2 ABG pO2 ABG HCO3 ABG O2 Saturation ABG Base Excess POC ABG pCO2 ABG Hemoglobin ABG Oxyhemoglobin ABG Chloride ABG Glucose Oxyhemoglobin Sodium Potassium Chloride Carbon Dioxide BUN Creatinine Glucose POC Glucose 153 H 130 H 130 H Lactic Acid Calcium Phosphorus Magnesium AST ALT Lactate Dehydrogenase Total Bilirubin Direct Bilirubin CK-MB (CK-2) C-Reactive Protein NT-Pro-B Natriuret Pep Total Protein Albumin Arterial Blood Glucose Urine WBC (Auto) Urine Creatinine 02/14/20 02/15/20 02/15/20 11:32 00:12 05:27 WBC RBC Hgb Hct MCHC RDW MCV MCH Lymph % (Auto) [place] % (Auto) [place] # Eos # Lymph # (Auto) [place] # (Auto) Eos # (Auto) Seg Neutrophils % Seg Neuts % (Manual) Baso # (Auto) Lymphocytes % (Manual) Monocytes % (Manual) Eosinophils % (Manual) Basophils % (Manual) Seg Neutrophils # Seg Neutrophils # Man Lymphocytes # (Manual) Monocytes # (Manual) Eosinophils # (Manual) Nucleated RBC % Basophils # (Manual) PT INR APTT Heparin Anti-Xa Level ABG pH POC ABG pO2 ABG pO2 ABG HCO3 ABG O2 Saturation ABG Base Excess POC ABG pCO2 ABG Hemoglobin ABG Oxyhemoglobin ABG Chloride ABG Glucose Oxyhemoglobin Sodium Potassium Chloride Carbon Dioxide BUN Creatinine Glucose POC Glucose 157 H 124 H 111 H Lactic Acid Calcium Phosphorus Magnesium AST ALT Lactate Dehydrogenase Total Bilirubin Direct Bilirubin CK-MB (CK-2) C-Reactive Protein NT-Pro-B Natriuret Pep Total Protein Albumin Arterial Blood Glucose Urine WBC (Auto) Urine Creatinine 02/15/20 02/15/20 02/15/20 06:59 06:59 11:14 WBC RBC Hgb 10.4 L Hct 33.7 L MCHC 31 L RDW 19.4 H MCV 80 L MCH 24 L Lymph % (Auto) [place] % (Auto) [place] # Eos # Lymph # (Auto) [place] # (Auto) Eos # (Auto) Seg Neutrophils % Seg Neuts % (Manual) Baso # (Auto) Lymphocytes % (Manual) Monocytes % (Manual) Eosinophils % (Manual) Basophils % (Manual) 2.0 H Seg Neutrophils # Seg Neutrophils # Man Lymphocytes # (Manual) Monocytes # (Manual) Eosinophils # (Manual) Nucleated RBC % 1.0 H Basophils # (Manual) 0.2 H PT INR APTT Heparin Anti-Xa Level ABG pH POC ABG pO2 ABG pO2 ABG HCO3 ABG O2 Saturation ABG Base Excess POC ABG pCO2 ABG Hemoglobin ABG Oxyhemoglobin ABG Chloride ABG Glucose Oxyhemoglobin Sodium 149 H Potassium Chloride 108.4 H Carbon Dioxide 31 H BUN 40 H Creatinine 0.7 L Glucose 150 H POC Glucose 128 H Lactic Acid Calcium Phosphorus Magnesium AST ALT Lactate Dehydrogenase Total Bilirubin Direct Bilirubin CK-MB (CK-2) C-Reactive Protein NT-Pro-B Natriuret Pep Total Protein Albumin Arterial Blood Glucose Urine WBC (Auto) Urine Creatinine 02/15/20 02/15/20 02/16/20 17:46 23:50 05:03 WBC RBC Hgb Hct MCHC RDW MCV MCH Lymph % (Auto) [place] % (Auto) [place] # Eos # Lymph # (Auto) [place] # (Auto) Eos # (Auto) Seg Neutrophils % Seg Neuts % (Manual) Baso # (Auto) Lymphocytes % (Manual) Monocytes % (Manual) Eosinophils % (Manual) Basophils % (Manual) Seg Neutrophils # Seg Neutrophils # Man Lymphocytes # (Manual) Monocytes # (Manual) Eosinophils # (Manual) Nucleated RBC % Basophils # (Manual) PT INR APTT Heparin Anti-Xa Level ABG pH POC ABG pO2 ABG pO2 ABG HCO3 ABG O2 Saturation ABG Base Excess POC ABG pCO2 ABG Hemoglobin ABG Oxyhemoglobin ABG Chloride ABG Glucose Oxyhemoglobin Sodium Potassium Chloride Carbon Dioxide BUN Creatinine Glucose POC Glucose 154 H 135 H 148 H Lactic Acid Calcium Phosphorus Magnesium AST ALT Lactate Dehydrogenase Total Bilirubin Direct Bilirubin CK-MB (CK-2) C-Reactive Protein NT-Pro-B Natriuret Pep Total Protein Albumin Arterial Blood Glucose Urine WBC (Auto) Urine Creatinine 02/16/20 02/16/20 02/16/20 07:53 11:28 17:52 WBC RBC Hgb Hct MCHC RDW MCV MCH Lymph % (Auto) [place] % (Auto) [place] # Eos # Lymph # (Auto) [place] # (Auto) Eos # (Auto) Seg Neutrophils % Seg Neuts % (Manual) Baso # (Auto) Lymphocytes % (Manual) Monocytes % (Manual) Eosinophils % (Manual) Basophils % (Manual) Seg Neutrophils # Seg Neutrophils # Man Lymphocytes # (Manual) Monocytes # (Manual) Eosinophils # (Manual) Nucleated RBC % Basophils # (Manual) PT INR APTT Heparin Anti-Xa Level ABG pH POC ABG pO2 ABG pO2 ABG HCO3 ABG O2 Saturation ABG Base Excess POC ABG pCO2 ABG Hemoglobin ABG Oxyhemoglobin ABG Chloride ABG Glucose Oxyhemoglobin Sodium Potassium Chloride 107.9 H Carbon Dioxide BUN 38 H Creatinine 0.6 L Glucose 151 H POC Glucose 123 H 152 H Lactic Acid Calcium Phosphorus Magnesium AST ALT Lactate Dehydrogenase Total Bilirubin Direct Bilirubin CK-MB (CK-2) C-Reactive Protein NT-Pro-B Natriuret Pep Total Protein Albumin Arterial Blood Glucose Urine WBC (Auto) Urine Creatinine 02/16/20 02/17/20 02/17/20 23:49 06:24 11:36 WBC RBC Hgb Hct MCHC RDW MCV MCH Lymph % (Auto) [place] % (Auto) [place] # Eos # Lymph # (Auto) [place] # (Auto) Eos # (Auto) Seg Neutrophils % Seg Neuts % (Manual) Baso # (Auto) Lymphocytes % (Manual) Monocytes % (Manual) Eosinophils % (Manual) Basophils % (Manual) Seg Neutrophils # Seg Neutrophils # Man Lymphocytes # (Manual) Monocytes # (Manual) Eosinophils # (Manual) Nucleated RBC % Basophils # (Manual) PT INR APTT Heparin Anti-Xa Level ABG pH POC ABG pO2 ABG pO2 ABG HCO3 ABG O2 Saturation ABG Base Excess POC ABG pCO2 ABG Hemoglobin ABG Oxyhemoglobin ABG Chloride ABG Glucose Oxyhemoglobin Sodium Potassium Chloride Carbon Dioxide BUN Creatinine Glucose POC Glucose 156 H 193 H 162 H Lactic Acid Calcium Phosphorus Magnesium AST ALT Lactate Dehydrogenase Total Bilirubin Direct Bilirubin CK-MB (CK-2) C-Reactive Protein NT-Pro-B Natriuret Pep Total Protein Albumin Arterial Blood Glucose Urine WBC (Auto) Urine Creatinine 02/17/20 02/17/20 02/18/20 17:55 23:28 05:11 WBC RBC Hgb Hct MCHC RDW MCV MCH Lymph % (Auto) [place] % (Auto) [place] # Eos # Lymph # (Auto) [place] # (Auto) Eos # (Auto) Seg Neutrophils % Seg Neuts % (Manual) Baso # (Auto) Lymphocytes % (Manual) Monocytes % (Manual) Eosinophils % (Manual) Basophils % (Manual) Seg Neutrophils # Seg Neutrophils # Man Lymphocytes # (Manual) Monocytes # (Manual) Eosinophils # (Manual) Nucleated RBC % Basophils # (Manual) PT INR APTT Heparin Anti-Xa Level ABG pH POC ABG pO2 ABG pO2 ABG HCO3 ABG O2 Saturation ABG Base Excess POC ABG pCO2 ABG Hemoglobin ABG Oxyhemoglobin ABG Chloride ABG Glucose Oxyhemoglobin Sodium Potassium Chloride Carbon Dioxide BUN Creatinine Glucose POC Glucose 165 H 146 H 122 H Lactic Acid Calcium Phosphorus Magnesium AST ALT Lactate Dehydrogenase Total Bilirubin Direct Bilirubin CK-MB (CK-2) C-Reactive Protein NT-Pro-B Natriuret Pep Total Protein Albumin Arterial Blood Glucose Urine WBC (Auto) Urine Creatinine 02/18/20 02/18/20 02/19/20 12:24 17:29 00:01 WBC RBC Hgb Hct MCHC RDW MCV MCH Lymph % (Auto) [place] % (Auto) [place] # Eos # Lymph # (Auto) [place] # (Auto) Eos # (Auto) Seg Neutrophils % Seg Neuts % (Manual) Baso # (Auto) Lymphocytes % (Manual) Monocytes % (Manual) Eosinophils % (Manual) Basophils % (Manual) Seg Neutrophils # Seg Neutrophils # Man Lymphocytes # (Manual) Monocytes # (Manual) Eosinophils # (Manual) Nucleated RBC % Basophils # (Manual) PT INR APTT Heparin Anti-Xa Level ABG pH POC ABG pO2 ABG pO2 ABG HCO3 ABG O2 Saturation ABG Base Excess POC ABG pCO2 ABG Hemoglobin ABG Oxyhemoglobin ABG Chloride ABG Glucose Oxyhemoglobin Sodium Potassium Chloride Carbon Dioxide BUN Creatinine Glucose POC Glucose 162 H 136 H 145 H Lactic Acid Calcium Phosphorus Magnesium AST ALT Lactate Dehydrogenase Total Bilirubin Direct Bilirubin CK-MB (CK-2) C-Reactive Protein NT-Pro-B Natriuret Pep Total Protein Albumin Arterial Blood Glucose Urine WBC (Auto) Urine Creatinine 02/19/20 02/19/20 02/19/20 05:53 11:44 17:32 WBC RBC Hgb Hct MCHC RDW MCV MCH Lymph % (Auto) [place] % (Auto) [place] # Eos # Lymph # (Auto) [place] # (Auto) Eos # (Auto) Seg Neutrophils % Seg Neuts % (Manual) Baso # (Auto) Lymphocytes % (Manual) Monocytes % (Manual) Eosinophils % (Manual) Basophils % (Manual) Seg Neutrophils # Seg Neutrophils # Man Lymphocytes # (Manual) Monocytes # (Manual) Eosinophils # (Manual) Nucleated RBC % Basophils # (Manual) PT INR APTT Heparin Anti-Xa Level ABG pH POC ABG pO2 ABG pO2 ABG HCO3 ABG O2 Saturation ABG Base Excess POC ABG pCO2 ABG Hemoglobin ABG Oxyhemoglobin ABG Chloride ABG Glucose Oxyhemoglobin Sodium Potassium Chloride Carbon Dioxide BUN Creatinine Glucose POC Glucose 116 H 120 H 154 H Lactic Acid Calcium Phosphorus Magnesium AST ALT Lactate Dehydrogenase Total Bilirubin Direct Bilirubin CK-MB (CK-2) C-Reactive Protein NT-Pro-B Natriuret Pep Total Protein Albumin Arterial Blood Glucose Urine WBC (Auto) Urine Creatinine 02/19/20 02/20/20 02/20/20 23:43 00:24 00:24 WBC RBC Hgb 9.4 L Hct 30.0 L MCHC 31 L RDW 20.4 H MCV 79 L MCH 25 L Lymph % (Auto) [place] % (Auto) 8.5 H [place] # Eos # Lymph # (Auto) [place] # (Auto) Eos # (Auto) Seg Neutrophils % Seg Neuts % (Manual) Baso # (Auto) Lymphocytes % (Manual) Monocytes % (Manual) Eosinophils % (Manual) Basophils % (Manual) Seg Neutrophils # Seg Neutrophils # Man Lymphocytes # (Manual) Monocytes # (Manual) Eosinophils # (Manual) Nucleated RBC % Basophils # (Manual) PT INR APTT Heparin Anti-Xa Level ABG pH POC ABG pO2 ABG pO2 ABG HCO3 ABG O2 Saturation ABG Base Excess POC ABG pCO2 ABG Hemoglobin ABG Oxyhemoglobin ABG Chloride ABG Glucose Oxyhemoglobin Sodium 147 H Potassium 3.4 L Chloride Carbon Dioxide 31 H BUN 34 H Creatinine 0.5 L Glucose 135 H POC Glucose 122 H Lactic Acid Calcium Phosphorus Magnesium AST ALT Lactate Dehydrogenase Total Bilirubin Direct Bilirubin CK-MB (CK-2) C-Reactive Protein NT-Pro-B Natriuret Pep Total Protein Albumin Arterial Blood Glucose Urine WBC (Auto) Urine Creatinine 02/20/20 02/20/20 02/20/20 06:07 06:45 12:03 WBC RBC Hgb Hct MCHC RDW MCV MCH Lymph % (Auto) [place] % (Auto) [place] # Eos # Lymph # (Auto) [place] # (Auto) Eos # (Auto) Seg Neutrophils % Seg Neuts % (Manual) Baso # (Auto) Lymphocytes % (Manual) Monocytes % (Manual) Eosinophils % (Manual) Basophils % (Manual) Seg Neutrophils # Seg Neutrophils # Man Lymphocytes # (Manual) Monocytes # (Manual) Eosinophils # (Manual) Nucleated RBC % Basophils # (Manual) PT INR APTT Heparin Anti-Xa Level ABG pH 7.461 H POC ABG pO2 ABG pO2 ABG HCO3 33.3 H ABG O2 Saturation ABG Base Excess 8.4 H POC ABG pCO2 ABG Hemoglobin 10.0 L ABG Oxyhemoglobin ABG Chloride ABG Glucose Oxyhemoglobin 94.1 L Sodium Potassium Chloride Carbon Dioxide BUN Creatinine Glucose POC Glucose 109 H 128 H Lactic Acid Calcium Phosphorus Magnesium AST ALT Lactate Dehydrogenase Total Bilirubin Direct Bilirubin CK-MB (CK-2) C-Reactive Protein NT-Pro-B Natriuret Pep Total Protein Albumin Arterial Blood Glucose Urine WBC (Auto) Urine Creatinine 02/20/20 02/20/20 02/21/20 18:02 23:55 05:42 WBC RBC Hgb Hct MCHC RDW MCV MCH Lymph % (Auto) [place] % (Auto) [place] # Eos # Lymph # (Auto) [place] # (Auto) Eos # (Auto) Seg Neutrophils % Seg Neuts % (Manual) Baso # (Auto) Lymphocytes % (Manual) Monocytes % (Manual) Eosinophils % (Manual) Basophils % (Manual) Seg Neutrophils # Seg Neutrophils # Man Lymphocytes # (Manual) Monocytes # (Manual) Eosinophils # (Manual) Nucleated RBC % Basophils # (Manual) PT INR APTT Heparin Anti-Xa Level ABG pH POC ABG pO2 ABG pO2 ABG HCO3 ABG O2 Saturation ABG Base Excess POC ABG pCO2 ABG Hemoglobin ABG Oxyhemoglobin ABG Chloride ABG Glucose Oxyhemoglobin Sodium Potassium Chloride Carbon Dioxide BUN Creatinine Glucose POC Glucose 118 H 125 H 127 H Lactic Acid Calcium Phosphorus Magnesium AST ALT Lactate Dehydrogenase Total Bilirubin Direct Bilirubin CK-MB (CK-2) C-Reactive Protein NT-Pro-B Natriuret Pep Total Protein Albumin Arterial Blood Glucose Urine WBC (Auto) Urine Creatinine 11/29/20 11/29/20 11/29/20 12:10 17:35 23:40 WBC RBC Hgb Hct MCHC RDW MCV MCH Lymph % (Auto) [place] % (Auto) [place] # Eos # Lymph # (Auto) [place] # (Auto) Eos # (Auto) Seg Neutrophils % Seg Neuts % (Manual) Baso # (Auto) Lymphocytes % (Manual) Monocytes % (Manual) Eosinophils % (Manual) Basophils % (Manual) Seg Neutrophils # Seg Neutrophils # Man Lymphocytes # (Manual) Monocytes # (Manual) Eosinophils # (Manual) Nucleated RBC % Basophils # (Manual) PT INR APTT Heparin Anti-Xa Level ABG pH POC ABG pO2 ABG pO2 ABG HCO3 ABG O2 Saturation ABG Base Excess POC ABG pCO2 ABG Hemoglobin ABG Oxyhemoglobin ABG Chloride ABG Glucose Oxyhemoglobin Sodium Potassium Chloride Carbon Dioxide BUN Creatinine Glucose POC Glucose 128 H 113 H 125 H Lactic Acid Calcium Phosphorus Magnesium AST ALT Lactate Dehydrogenase Total Bilirubin Direct Bilirubin CK-MB (CK-2) C-Reactive Protein NT-Pro-B Natriuret Pep Total Protein Albumin Arterial Blood Glucose Urine WBC (Auto) Urine Creatinine 02/22/20 02/22/20 02/22/20 05:57 08:06 08:06 WBC RBC Hgb 10.8 L Hct 35.2 L MCHC 31 L RDW 21.8 H MCV 80 L MCH 25 L Lymph % (Auto) [place] % (Auto) [place] # Eos # Lymph # (Auto) [place] # (Auto) Eos # (Auto) Seg Neutrophils % 71.5 H Seg Neuts % (Manual) Baso # (Auto) Lymphocytes % (Manual) Monocytes % (Manual) Eosinophils % (Manual) Basophils % (Manual) Seg Neutrophils # Seg Neutrophils # Man Lymphocytes # (Manual) Monocytes # (Manual) Eosinophils # (Manual) Nucleated RBC % Basophils # (Manual) PT INR APTT Heparin Anti-Xa Level ABG pH POC ABG pO2 ABG pO2 ABG HCO3 ABG O2 Saturation ABG Base Excess POC ABG pCO2 ABG Hemoglobin ABG Oxyhemoglobin ABG Chloride ABG Glucose Oxyhemoglobin Sodium 146 H Potassium Chloride Carbon Dioxide 34 H BUN 21 H Creatinine 0.4 L Glucose 149 H POC Glucose 138 H Lactic Acid Calcium Phosphorus Magnesium AST ALT Lactate Dehydrogenase Total Bilirubin Direct Bilirubin CK-MB (CK-2) C-Reactive Protein NT-Pro-B Natriuret Pep Total Protein Albumin Arterial Blood Glucose Urine WBC (Auto) Urine Creatinine 02/22/20 02/22/20 02/22/20 11:47 17:11 23:25 WBC RBC Hgb Hct MCHC RDW MCV MCH Lymph % (Auto) [place] % (Auto) [place] # Eos # Lymph # (Auto) [place] # (Auto) Eos # (Auto) Seg Neutrophils % Seg Neuts % (Manual) Baso # (Auto) Lymphocytes % (Manual) Monocytes % (Manual) Eosinophils % (Manual) Basophils % (Manual) Seg Neutrophils # Seg Neutrophils # Man Lymphocytes # (Manual) Monocytes # (Manual) Eosinophils # (Manual) Nucleated RBC % Basophils # (Manual) PT INR APTT Heparin Anti-Xa Level ABG pH POC ABG pO2 ABG pO2 ABG HCO3 ABG O2 Saturation ABG Base Excess POC ABG pCO2 ABG Hemoglobin ABG Oxyhemoglobin ABG Chloride ABG Glucose Oxyhemoglobin Sodium Potassium Chloride Carbon Dioxide BUN Creatinine Glucose POC Glucose 149 H 144 H 142 H Lactic Acid Calcium Phosphorus Magnesium AST ALT Lactate Dehydrogenase Total Bilirubin Direct Bilirubin CK-MB (CK-2) C-Reactive Protein NT-Pro-B Natriuret Pep Total Protein Albumin Arterial Blood Glucose Urine WBC (Auto) Urine Creatinine 02/23/20 02/23/20 02/23/20 05:22 11:37 18:14 WBC RBC Hgb Hct MCHC RDW MCV MCH Lymph % (Auto) [place] % (Auto) [place] # Eos # Lymph # (Auto) [place] # (Auto) Eos # (Auto) Seg Neutrophils % Seg Neuts % (Manual) Baso # (Auto) Lymphocytes % (Manual) Monocytes % (Manual) Eosinophils % (Manual) Basophils % (Manual) Seg Neutrophils # Seg Neutrophils # Man Lymphocytes # (Manual) Monocytes # (Manual) Eosinophils # (Manual) Nucleated RBC % Basophils # (Manual) PT INR APTT Heparin Anti-Xa Level ABG pH POC ABG pO2 ABG pO2 ABG HCO3 ABG O2 Saturation ABG Base Excess POC ABG pCO2 ABG Hemoglobin ABG Oxyhemoglobin ABG Chloride ABG Glucose Oxyhemoglobin Sodium Potassium Chloride Carbon Dioxide BUN Creatinine Glucose POC Glucose 144 H 113 H 127 H Lactic Acid Calcium Phosphorus Magnesium AST ALT Lactate Dehydrogenase Total Bilirubin Direct Bilirubin CK-MB (CK-2) C-Reactive Protein NT-Pro-B Natriuret Pep Total Protein Albumin Arterial Blood Glucose Urine WBC (Auto) Urine Creatinine 02/23/20 02/24/20 02/24/20 23:45 05:50 11:24 WBC RBC Hgb Hct MCHC RDW MCV MCH Lymph % (Auto) [place] % (Auto) [place] # Eos # Lymph # (Auto) [place] # (Auto) Eos # (Auto) Seg Neutrophils % Seg Neuts % (Manual) Baso # (Auto) Lymphocytes % (Manual) Monocytes % (Manual) Eosinophils % (Manual) Basophils % (Manual) Seg Neutrophils # Seg Neutrophils # Man Lymphocytes # (Manual) Monocytes # (Manual) Eosinophils # (Manual) Nucleated RBC % Basophils # (Manual) PT INR APTT Heparin Anti-Xa Level ABG pH POC ABG pO2 ABG pO2 ABG HCO3 ABG O2 Saturation ABG Base Excess POC ABG pCO2 ABG Hemoglobin ABG Oxyhemoglobin ABG Chloride ABG Glucose Oxyhemoglobin Sodium Potassium Chloride Carbon Dioxide BUN Creatinine Glucose POC Glucose 123 H 117 H 126 H Lactic Acid Calcium Phosphorus Magnesium AST ALT Lactate Dehydrogenase Total Bilirubin Direct Bilirubin CK-MB (CK-2) C-Reactive Protein NT-Pro-B Natriuret Pep Total Protein Albumin Arterial Blood Glucose Urine WBC (Auto) Urine Creatinine Chest x-ray: other (none today) Allied health notes reviewed: nursing
[2020-02-24] MEDS: MORPHINE 2 MG/1 ML INJ IV PRN (14:42)
[2020-02-24] MEDS: DIGOXIN 0.5 MG/2 ML INJ IV SCH (17:09)
[2020-02-25] MEDS: INSULIN REGULAR, HUMAN 100 UNIT/ML 3ML VIAL SUB-Q SCH ×4 (07:05→18:05)
[2020-02-25] MEDS: GLYCOPYRROLATE 2 MG TAB PO SCH ×4 (07:05→20:56)
[2020-02-25] MEDS: MIDODRINE 5 MG TAB PO SCH ×3 (07:35→17:08)
[2020-02-25] MEDS: LANSOPRAZOLE 30 MG SOLUTAB FEEDTUBE SCH (09:23)
[2020-02-25] MEDS: QUEtiapine 100 MG TAB PO SCH ×2 (09:23→21:01)
[2020-02-25] MEDS: DOCUSATE SODIUM 100 MG/10 ML ORAL LIQD FEEDTUBE SCH ×2 (09:23→21:01)
[2020-02-25] MEDS: CLOPIDOGREL 75 MG TAB PO SCH (09:23)
[2020-02-25] MEDS: APIXABAN 5 MG TAB PO SCH ×2 (09:23→21:01)
--- NOTE | 2020-02-25 10:39 | Progress Note ---
<KACEY HICKEY - Last Filed: 02/25/20 10:37> Assessment and Plan Chest pain, resolved LHC done 01/22/20 widely patent previous LAD stent. We found mild nonobstructive atherosclerosis of the mid right coronary artery. Otherwise the rest of the coronary system was without significant atherosclerosis. LVEF 40 to 45%. There was some hypokinesis of the basal inferior wall suggestive of previous or recent infarct. ECG done 01/19/20 shows sinus rhythm with low voltage QRS and subtle ST segment elevations in the inferolateral leads that suggested possible concern for an acute injury at that time. Atrial fibrillation, rate control on digoxin amiodarone discontinued due to liver transaminases Ischemic Cardiomyopathy re-echo this presentation reports an LVEF 40-45%. Hx of CAD Multifocal pneumonia negative COVID-19 test x 3 Chronic Respiratory failure s/p trach History of COPD Acute PE/DVT -on Eliquis Anemia Partial SBO vs ileus Conservative cardiac management. Subjective Date of service: 02/25/20 Principal diagnosis: Ac hypoxemic resp failure; Pneumonia; PUI COVID-19; CHF; COPD; HTN Interval history: No interval cardiac changes. Atrial fibrillation with a well controlled ventricular rate on telemetry. Objective Vital Signs Temp Pulse Pulse Resp BP Pulse Ox Pulse Ox 02/25/20 10:00 100 H 20 113/86 100 02/25/20 09:30 124 H 20 119/87 99 02/25/20 09:00 107 H 17 111/83 99 02/25/20 08:33 100 H 18 118/76 99 02/25/20 08:30 106 H 18 110/81 99 02/25/20 08:00 98.4 F 92 H 98 H 18 106/82 100 02/25/20 07:30 111 H 17 102/76 99 02/25/20 07:00 93 H 18 102/76 99 02/25/20 06:30 95 H 17 108/81 99 02/25/20 06:00 100 H 18 118/76 99 02/25/20 05:30 106 H 21 103/74 100 02/25/20 05:00 115 H 20 99/79 98 02/25/20 04:30 93 H 17 108/76 100 02/25/20 04:00 104 H 95 H 18 95/75 98 02/25/20 03:56 98.9 F 02/25/20 03:52 98 02/25/20 03:30 99 H 14 117/87 99 02/25/20 03:00 124 H 22 110/83 98 02/25/20 02:30 98 H 15 108/75 98 02/25/20 02:00 90 20 108/75 99 02/25/20 01:30 88 21 103/64 98 02/25/20 01:00 83 18 119/68 98 02/25/20 00:30 99 H 16 120/75 100 02/25/20 00:00 98.0 F 135 H 95 H 20 118/93 100 02/24/20 23:50 99 H 18 118/93 100 02/24/20 23:30 94 H 18 124/89 100 02/24/20 23:00 115 H 19 124/89 100 02/24/20 22:30 111 H 19 124/89 98 02/24/20 22:00 98 H 21 110/80 100 02/24/20 21:30 92 H 27 H 108/84 95 02/24/20 21:00 91 H 18 108/84 98 02/24/20 20:30 108 H 20 114/76 99 02/24/20 20:00 97.6 F 135 H 95 H 17 135/98 98 02/24/20 19:30 124 H 32 H 135/98 86 02/24/20 19:00 97 H 21 121/80 99 02/24/20 18:30 92 H 19 115/77 99 02/24/20 18:00 86 20 118/91 98 02/24/20 17:50 94 H 118/91 97 02/24/20 17:35 97 02/24/20 17:30 77 23 110/85 98 02/24/20 17:09 100 H 123/80 02/24/20 17:00 96 H 22 126/80 99 02/24/20 16:30 94 H 17 120/97 99 02/24/20 16:00 115 H 111 H 25 H 104/82 99 02/24/20 15:30 92 H 19 104/82 98 02/24/20 15:15 98 H 34 H 96 02/24/20 15:00 74 22 108/83 98 02/24/20 14:42 20 02/24/20 14:30 133 H 27 H 117/76 97 02/24/20 14:00 85 19 119/88 99 02/24/20 13:30 102 H 28 H 137/92 97 02/24/20 13:00 107 H 22 137/70 99 02/24/20 12:30 123 H 21 137/70 98 02/24/20 12:00 97.3 F L 94 H 120 H 14 140/77 99 02/24/20 11:30 101 H 24 131/82 95 02/24/20 11:00 94 H 14 135/72 99 - Physical Examination General: Other (s/p trach) HEENT: Positive: PERRL Cardiac: Positive: irregularly irregular Neuro: Positive: Weakness Extremities: Absent: edema - Allied health notes Allied health notes reviewed: nursing <PETRONA SHAHID Last Filed: 02/28/20 09:10> Assessment and Plan - Patient Problems (1) Acute respiratory failure Current Visit: Yes Status: Acute (2) Bilateral pneumonia Current Visit: Yes Status: Acute (3) COPD exacerbation Current Visit: No Status: Acute (4) Hypertension Current Visit: No Status: Acute Qualifiers: Hypertension type: essential hypertension Qualified Code(s): I10 - Essential (primary) hypertension (5) Cardiomyopathy Current Visit: Yes Status: Acute (6) Paroxysmal atrial fibrillation Current Visit: Yes Status: Acute Subjective Interval history: I SAW THIS PT & AGREE WITH THE Dx & Tx PLAN Objective Vital Signs Temp Pulse Pulse Pulse Resp Resp BP 02/28/20 08:00 97.5 F L 106 H 102 H 18 21 109/79 02/28/20 07:00 108 H 17 128/92 02/28/20 06:00 117 H 16 128/92 02/28/20 05:35 119 H 125/80 02/28/20 05:00 117 H 15 125/80 02/28/20 04:38 102 H 02/28/20 04:00 98.2 F 126 H 21 16 129/85 02/28/20 03:00 103 H 20 115/95 02/28/20 02:00 132 H 19 95/68 02/28/20 01:00 101 H 22 111/82 02/28/20 00:03 116 H 02/28/20 00:00 98.1 F 127 H 21 108/73 02/27/20 23:15 23 02/27/20 23:04 105 H 22 109/75 02/27/20 23:00 114 H 30 H 120/79 02/27/20 22:30 101 H 20 120/79 02/27/20 22:00 92 H 23 117/85 02/27/20 21:30 132 H 24 117/85 02/27/20 21:00 120 H 21 117/85 02/27/20 20:30 91 H 22 109/75 02/27/20 20:21 109 H 02/27/20 20:00 97.8 F 100 H 24 24 109/75 02/27/20 19:30 134 H 20 113/77 02/27/20 19:23 97 H 113/77 02/27/20 19:00 96 H 11 L 113/77 02/27/20 18:30 98 H 13 119/79 02/27/20 18:00 101 H 13 119/79 02/27/20 17:30 111 H 11 L 114/85 02/27/20 17:00 124 H 22 114/85 02/27/20 16:54 112 H 107/70 02/27/20 16:30 126 H 19 107/70 02/27/20 16:00 98.0 F 113 H 108 H 20 121/94 02/27/20 15:31 96 H 21 121/94 02/27/20 15:30 115 H 22 121/94 02/27/20 15:00 100 H 15 121/94 02/27/20 14:30 126 H 21 119/96 02/27/20 14:00 120 H 22 119/96 02/27/20 13:30 108 H 15 120/87 02/27/20 13:00 122 H 22 133/100 02/27/20 12:30 113 H 18 133/100 02/27/20 12:10 22 02/27/20 12:00 97.5 F L 134 H 110 H 20 133/100 02/27/20 11:45 129 H 29 H 126/99 02/27/20 11:30 126 H 22 144/101 02/27/20 11:00 131 H 24 90/73 02/27/20 10:30 120 H 19 90/73 02/27/20 10:01 101 H 14 90/73 02/27/20 10:00 02/27/20 09:31 109 H 20 112/86 Pulse Ox Pulse Ox 02/28/20 08:00 99 98 02/28/20 07:00 96 02/28/20 06:00 98 02/28/20 05:35 97 02/28/20 05:00 99 02/28/20 04:38 02/28/20 04:00 99 02/28/20 03:00 99 02/28/20 02:00 98 02/28/20 01:00 99 02/28/20 00:03 02/28/20 00:00 100 02/27/20 23:15 02/27/20 23:04 99 02/27/20 23:00 99 02/27/20 22:30 98 02/27/20 22:00 98 02/27/20 21:30 100 02/27/20 21:00 100 02/27/20 20:30 98 02/27/20 20:21 02/27/20 20:00 99 02/27/20 19:30 98 02/27/20 19:23 97 02/27/20 19:00 99 02/27/20 18:30 99 02/27/20 18:00 99 02/27/20 17:30 99 02/27/20 17:00 98 02/27/20 16:54 02/27/20 16:30 99 02/27/20 16:00 98 02/27/20 15:31 100 100 02/27/20 15:30 99 02/27/20 15:00 99 02/27/20 14:30 100 02/27/20 14:00 99 02/27/20 13:30 98 02/27/20 13:00 97 02/27/20 12:30 96 02/27/20 12:10 02/27/20 12:00 96 02/27/20 11:45 100 02/27/20 11:30 100 02/27/20 11:00 99 02/27/20 10:30 100 02/27/20 10:01 98 02/27/20 10:00 99 02/27/20 09:31 98
[2020-02-25] MEDS: GLYCOPYRROLATE 1 MG TAB PO SCH (10:46)
--- NOTE | 2020-02-25 14:54 | Progress Note ---
Assessment and Plan Assessment and plan: --Ischemic cardiomyopathy Cardiology is following, status post cardiac catheterization on 01/22/2020; C oronary artery disease status post PCI and stent to the LAD Continue current cardiac medications --Acute on chronic hypoxemic respiratory failure; Patient has tracheostomy on vent Continue nebulizers, , trach care Wean off ventilator as tolerated Pulmonary critical following --Acute exacerbation of COPD; Patient is currently on ventilatory support Continue nebulizers --Left lower lobe PE; Continue Eliquis, ventilatory support --Acute right lower extremity DVT; Patient is on Eliquis --Bilateral multifocal pneumonia/community-acquired Completed antibiotics, improved --Severe sepsis/bilateral pneumonia: Completed antibiotics COVID-19 test; 11/24/2019; negative 11/26/2019; negative 12/29/2019: Negative --Paroxysmal atrial fibrillation; Now rate controlled, Stable on amiodarone and Eliquis --Acute on chronic combined systolic and diastolic congestive heart failure Ischemic cardiomyopathy left ventricular ejection fraction 40 to 45% --H/o CAD [[facility] 12/2018 in-stent restenosis] Patient is stable on current cardiac medications --Hypertensive emergency; present on admission Reasonable blood pressures, continue current antihypertensives As needed medications --History of alcohol abuse/alcohol withdrawal; Was on CIWA protocol, now stable --Oropharyngeal dysphagia; status post PEG placement Continue PEG feeds per protocol --History of partial small bowel obstruction; resolved Surgery evaluated. --Obesity; BMI 34.7 Patient needs weight reduction when medically stable --Severe protein calorie malnutrition/hypoalbuminemia Nutrition supplements, dietitian following, PEG feeds --DVT prophylaxis;Eliquis --Full CODE STATUS 01/05; Pt stable. NGT output 650cc over 24 hours, bilious. No f/c, WBC within normal limits. cont NG suction and cont to hold TF 01/06: Abs series - mild improvement in small bowel distension in mid abdomen, normal gas/stool pattern in colon. NGT in duodenum. Continue to hold tube feeding, maintain NG tube with low intermittent suction. Patient's was updated by phone. Continue to provide supportive care and monitor clinically. 01/07: +BMs today and NGT/PEG output appears more gastric today. Plan to clamp NGT, if tolerates start TF from tomorrow. cont supportive care. 01/08; Gastric output decreased over last 24 hours. NGT has been clamped x 24 hours. plan to dc NGT and to start TTF via PEG - vital HF @10cc/hr 01/09: clinically stable, tolerating TF. monitor BMP, wean off from vent as tolerated clinically stable, on TF. wean off vent as tolerated 01/11: wean off from vent, cont to monitor, on TF 01/12: wean off from vent, cont to monitor, on TF. need placement - unfunded 01/13; remains on ventilatory support, unable to wean, DC planning possible LTAC, unfunded 01/14; patient of ventilatory support, T-piece tracheostomy on oxygen, LTAC placement per case management 01/16; tracheostomy, patient on full ventilatory support, wean off vent support as tolerated, pending LTAC placement, social financial issues 01/17; awaiting LTAC placement, insurance and financial issues 01/18; patient tracheostomy remains on ventilatory support 01/19; wean off ventilator as tolerated 01/20; remains on ventilatory support, patient complains of intermittent chest pain, cardiology recommend left heart catheterization tomorrow 01/22/2020. Patient for left heart catheterization per cardiology. Patient remains on AC mode ventilation rate 12, tidal volume 450, FiO2 30% and PEEP of 6. Continue tracheostomy care, airway management and secretion control. 01/23/2020. Cardiac catheterization completed yesterday revealed widely patent previous LAD stent with mild nonobstructive atherosclerosis of the right mid coronary artery and rest of the coronary system was without significant atherosclerosis. The left ventricle ejection fraction was mildly impaired at 40 to 45%. There was some hypokinesis of the basal inferior wall suggestive of previous or recent infarct. Continue GDMT for coronary artery disease including beta blockers, topical nitrates, statin and Plavix. Continue Eliquis for paroxysmal atrial fibrillation and PE. Continue diuresis with Lasix and follow electrolytes closely. Continue Robinul and scopolamine for secretion control and daily SBT per pulmonary. Also, continue bronchodilators and routine trach care/airway management. T-piece trials per pulmonary as tolerated. 01/24/2020. Recent cardiac catheterization has documented widely patent left anterior descending artery stent with minimal nonobstructive diffuse coronary artery disease in the rest of the coronary arteries. Evidence of ischemic cardiomyopathy with inferior wall hypokinesis. Continue with guideline directed medical therapy. Continue Robinul and scopolamine for secretion control and daily SBT per pulmonary. Continue bronchodilators and routine trach care/airway management. T-piece trials per pulmonary as tolerated. 01/25/2020. Continue with guideline directed medical therapy for systolic heart failure. Cardiac catheterization revealed evidence of ischemic cardiomyopathy with inferior wall hypokinesis (EF 40-45%). Patient currently on T-piece with oxygen 10 L/min FiO2 40%. Continue Robinul and scopolamine for secretion control. Continue bronchodilators and routine trach care/airway management. 02/03: Mental status more improved, agree with Reglan will change to IV scheduled for two days, no new vomiting. Pseudomonas A in Sputum. 02/04: Clinical improving, amiodarone discontinued due to LFTs, continue Metoprolol.d/w GI, started on Golytely to clear impaction. Started on dialy Miralax. 02/05: Continue supportive care. Noted bowel movement, continue bowel regimen 02/06: Cardiology input noted beta-hebert increased for better suppression of atrial fibrillation. Continue to monitor, no other evidence of nausea vomiting noted. Discussed with respiratory therapist will be continued on weaning protocol with pressure support today. 02/07: Patient successfully weaned off the ventilator, No new complaints, continue monitoring, BM noted, Discussed with pulmonary, 02/08; tracheostomy on T-piece, patient is more alert and awake today 02/09; clinically no change, tracheostomy on vent 02/10; tracheostomy on vent, full CODE STATUS, poor prognosis, 02/11; clinically no change, remains on ventilatory support, full CODE STATUS, discussed with spouse Ms. Paulette Araiza extensively today 02/12. Patient resting comfortably no change on vent with tracheostomy. Still unable to wean. Some increased crackles today. 02/13: Still unable to wean from the vent. Overall prognosis remains extremely poor. 02/14; remains critically ill, tracheostomy on vent, unable to wean, poor prognosis, full CODE STATUS 02/15; patient is more alert and awake today, chronic tracheostomy on T-piece, continue current management DC planning per case management. Disposition very difficult due to lack of resources and insurance 02/17/2020. Patient remains on mechanical ventilation and tolerating PSV trials. Patient currently with PSV 10/6 at FiO2 of 30%. 02/18/2020. Patient currently on PSV 10/6 with FiO2 of 40%. 40% T-piece trial was attempted but patient unable to tolerate due to saturations dropping into the 80s and heart rate in the 140s. Therefore, patient placed back on PSV. Continue anticoagulation with Eliquis. Continue secretion control with Robinul and scopolamine. Continue rate control with metoprolol and digoxin. 02/19/2020. Patient currently on PSV 10/6 with FiO2 of 30%. T-piece trial attempted yesterday but patient did not tolerate. Continue T-piece trials as tolerated. Continue anticoagulation with Eliquis. Continue secretion control with Robinul and scopolamine. Continue rate control with metoprolol and digoxin. Continue to follow with case management with regards to discharge p lizette. 02/20/2020. Patient continues to tolerate PSV 10/6. Continue rate control with metoprolol and digoxin. Amiodarone discontinued due to elevated liver transaminases. Eliquis for anticoagulation acute PE/DVT. 02/21/2020. Patient continues to tolerate PSV 10/6 at FiO2 of 30%. Continue r ate control with metoprolol and digoxin. Amiodarone discontinued due to elevated liver transaminases. Eliquis for anticoagulation acute PE/DVT. 02/22/2020. Patient continues to tolerate PSV 10/6 at FiO2 of 30%. Continue rate control with metoprolol and digoxin. Amiodarone discontinued due to e levated liver transaminases. Eliquis for anticoagulation acute PE/DVT. 02/22. Awake and alert on vent. Vitals stable. 02/23. Awake and alert on vent. Requests for ice. Vitals stable 02/24. Trach to vent. Continue rate control with metoprolol and digoxin. Amiodarone discontinued due to elevated liver transaminases. Eliquis for anticoagulation of acute PE/DVT. The high probability of a clinically significant, sudden or life threatening deterioration of the [Respiratory, cardiovascular & neurological] system(s) required my full and direct attention, intervention and personal management. The aggregate critical care time was [32] minutes without overlap. Time includes spent on [x] Data Review and interpretation [x] Patient assessment and monitoring of vital signs [x] Documentation [x] Medication orders and management History Interval history: Patient seen and examined at bedside this morning. He has no complaints today. Vitals stable Hospitalist Physical - Physical exam Narrative exam: VITAL SIGNS: Reviewed. GENERAL: Awake on vent HEAD: No signs of head trauma. EYES: Pupils are equal. Extraocular motions intact. EARS: Hearing grossly intact. MOUTH: Oropharynx is normal. NECK: No adenopathy, no JVD. Trach in place CHEST: Chest with diminished breath sounds bilaterally. No wheezes, rales, or rhonchi. CARDIAC: Regular rate and rhythm. S1 and S2, without murmurs, gallops, or rubs. VASCULAR: +Edema. Peripheral pulses normal and equal in all extremities. ABDOMEN: Soft, non tender and non distended. No rebound or guarding, and no masses palpated. Bowel Sounds normal. MUSCULOSKELETAL: Good range of motion of all major joints. NEUROLOGIC EXAM: Alert and oriented x3. No focal neurologic deficits PSYCHIATRIC: Stable mood SKIN: No obvious lesions - Constitutional Vitals: Temp Pulse Resp BP Pulse Ox 97.9 F 103 H 21 121/85 97 02/25/20 12:00 02/25/20 14:00 02/25/20 14:00 02/25/20 14:00 02/25/20 14:28 HEART Score - HEART Score Troponin: Troponin T < 0.010 ng/mL (0.00-0.029) 01/19/20 01:35 Results - Labs CBC & Chem 7: 02/22/20 08:06 02/22/20 08:06 Labs: Laboratory Last Values WBC 9.2 K/mm3 (4.5-11.0) 02/22/20 08:06 RBC 4.42 M/mm3 (3.65-5.03) 02/22/20 08:06 Hgb 10.8 gm/dl (11.8-15.2) L 02/22/20 08:06 Hct 35.2 % (35.5-45.6) L 02/22/20 08:06 MCV 80 fl (84-94) L 02/22/20 08:06 MCH 25 pg (28-32) L 02/22/20 08:06 MCHC 31 % (32-34) L 02/22/20 08:06 RDW 21.8 % (13.2-15.2) H 02/22/20 08:06 Plt Count 216 K/mm3 (140-440) 02/22/20 08:06 Lymph % (Auto) 19.0 % (13.4-35.0) 02/22/20 08:06 Towns % (Auto) 6.5 % (0.0-7.3) 02/22/20 08:06 Eos % (Auto) 2.1 % (0.0-4.3) 02/22/20 08:06 Baso % (Auto) 0.9 % (0.0-1.8) 02/22/20 08:06 Lymph # (Auto) 1.8 K/mm3 (1.2-5.4) 02/22/20 08:06 Towns # (Auto) 0.6 K/mm3 (0.0-0.8) 02/22/20 08:06 Eos # (Auto) 0.2 K/mm3 (0.0-0.4) 02/22/20 08:06 Baso # (Auto) 0.1 K/mm3 (0.0-0.1) 02/22/20 08:06 Add Manual Diff Complete 02/15/20 06:59 Total Counted 100 02/15/20 06:59 Seg Neutrophils % 71.5 % (40.0-70.0) H 02/22/20 08:06 Seg Neuts % (Manual) 58.0 % (40.0-70.0) 02/15/20 06:59 Band Neutrophils % 0 % 02/15/20 06:59 Lymphocytes % (Manual) 34.0 % (13.4-35.0) 02/15/20 06:59 Reactive Lymphs % (Man) 1.0 % 02/15/20 06:59 Monocytes % (Manual) 4.0 % (0.0-7.3) 02/15/20 06:59 Eosinophils % (Manual) 0 % (0.0-4.3) 02/15/20 06:59 Basophils % (Manual) 2.0 % (0.0-1.8) H 02/15/20 06:59 Metamyelocytes % 1.0 % 02/15/20 06:59 Myelocytes % 0 % 02/15/20 06:59 Promyelocytes % 0 % 02/15/20 06:59 Blast Cells % 0 % 02/15/20 06:59 Nucleated RBC % 1.0 % (0.0-0.9) H 02/15/20 06:59 Seg Neutrophils # 6.6 K/mm3 (1.8-7.7) 02/22/20 08:06 Seg Neutrophils # Man 5.9 K/mm3 (1.8-7.7) 02/15/20 06:59 Band Neutrophils # 0.0 K/mm3 02/15/20 06:59 Lymphocytes # (Manual) 3.5 K/mm3 (1.2-5.4) 02/15/20 06:59 Abs React Lymphs (Man) 0.1 K/mm3 02/15/20 06:59 Monocytes # (Manual) 0.4 K/mm3 (0.0-0.8) 02/15/20 06:59 Eosinophils # (Manual) 0.0 K/mm3 (0.0-0.4) 02/15/20 06:59 Basophils # (Manual) 0.2 K/mm3 (0.0-0.1) H 02/15/20 06:59 Metamyelocytes # 0.1 K/mm3 02/15/20 06:59 Myelocytes # 0.0 K/mm3 02/15/20 06:59 Promyelocytes # 0.0 K/mm3 02/15/20 06:59 Blast Cells # 0.0 K/mm3 02/15/20 06:59 WBC Morphology Not Reportable 02/15/20 06:59 Hypersegmented Neuts Not Reportable 02/15/20 06:59 Hyposegmented Neuts Not Reportable 02/15/20 06:59 Hypogranular Neuts Not Reportable 02/15/20 06:59 Smudge Cells Not Reportable 02/15/20 06:59 Toxic Granulation Not Reportable 02/15/20 06:59 Toxic Vacuolation Not Reportable 02/15/20 06:59 Dohle Bodies Not Reportable 02/15/20 06:59 Pelger-Huet Anomaly Not Reportable 02/15/20 06:59 Hector Rods Not Reportable 02/15/20 06:59 Platelet Estimate Consistent w auto 02/15/20 06:59 Clumped Platelets Not Reportable 02/15/20 06:59 Plt Clumps, EDTA Not Reportable 02/15/20 06:59 Large Platelets Not Reportable 02/15/20 06:59 Giant Platelets Not Reportable 02/15/20 06:59 Platelet Satelliting Not Reportable 02/15/20 06:59 Plt Morphology Comment Giant platelets 02/15/20 06:59 RBC Morphology Not Reportable 02/15/20 06:59 Dimorphic RBCs Not Reportable 02/15/20 06:59 Polychromasia Not Reportable 02/15/20 06:59 Hypochromasia 1+ 02/15/20 06:59 Poikilocytosis Few 02/15/20 06:59 Anisocytosis 1+ 02/15/20 06:59 Microcytosis Not Reportable 02/15/20 06:59 Macrocytosis Not Reportable 02/15/20 06:59 Spherocytes Not Reportable 02/15/20 06:59 Pappenheimer Bodies Not Reportable 02/15/20 06:59 Sickle Cells Not Reportable 02/15/20 06:59 Target Cells 1+ 02/15/20 06:59 Tear Drop Cells Few 02/15/20 06:59 Ovalocytes Not Reportable 02/15/20 06:59 Helmet Cells Not Reportable 02/15/20 06:59 Gottlieb-[place] Bodies Not Reportable 02/15/20 06:59 Mulhall Rings Not Reportable 02/15/20 06:59 Oc Cells Not Reportable 02/15/20 06:59 Bite Cells Not Reportable 02/15/20 06:59 Crenated Cell Not Reportable 02/15/20 06:59 Elliptocytes Few 02/15/20 06:59 Acanthocytes (Spur) Not Reportable 02/15/20 06:59 Rouleaux Not Reportable 02/15/20 06:59 Hemoglobin C Crystals Not Reportable 02/15/20 06:59 Schistocytes Not Reportable 02/15/20 06:59 Malaria parasites Not Reportable 02/15/20 06:59 Clifford Bodies Not Reportable 02/15/20 06:59 Hem Pathologist Commnt No 02/15/20 06:59 PT 27.0 Sec. (12.2-14.9) H 02/07/20 15:03 INR 2.46 (0.87-1.13) H 02/07/20 15:03 APTT 31.5 Sec. (24.2-36.6) 01/22/20 09:58 Heparin Anti-Xa Level 1.34 U.I./ml (0.3-0.7) H 01/22/20 04:45 ABG pH 7.461 pH Units (7.350-7.450) H 02/20/20 06:45 POC ABG pCO2 34.8 mmHg (32.0-48.0) 02/11/20 14:11 ABG pCO2 47.8 mm Hg 02/20/20 06:45 POC ABG pO2 77.7 mmHg (83-108) L 02/11/20 14:11 ABG pO2 88.7 mm Hg (80.0-90.0) 02/20/20 06:45 POC ABG HCO3 26.7 02/11/20 14:11 ABG HCO3 33.3 mmol/L (20.0-26.0) H 02/20/20 06:45 ABG O2 Saturation 97.2 % (95.0-99.0) 02/20/20 06:45 ABG O2 Content 13.3 (0.0-44) 02/20/20 06:45 POC ABG Base Excess 3.6 02/11/20 14:11 ABG Base Excess 8.4 mmol/L (-2.0-3.0) H 02/20/20 06:45 ABG Hemoglobin 10.0 gm/dl (14.0-18.0) L 02/20/20 06:45 ABG Oxyhemoglobin 84 (94-98) L 12/22/19 03:22 ABG Carboxyhemoglobin 2.9 % (0.0-5.0) 02/20/20 06:45 ABG Methemoglobin 0.4 % (0.0-1.5) 02/20/20 06:45 ABG Sodium 144.7 mmol/L (136.0-145.0) 02/11/20 14:11 ABG Potassium 3.5 mmol/L (3.40-4.50) 02/11/20 14:11 ABG Chloride 108.0 mmol/L (98-107) H 02/11/20 14:11 ABG Glucose 151 mg/dL (65-95) H 02/11/20 14:11 Oxyhemoglobin 94.1 % (95.0-99.0) L 02/20/20 06:45 Carboxyhemoglobin 0.7 (0.5-1.5) 12/22/19 03:22 FiO2 30 % 02/20/20 06:45 Sodium 146 mmol/L (137-145) H 02/22/20 08:06 Potassium 3.7 mmol/L (3.6-5.0) 02/22/20 08:06 Chloride 106.1 mmol/L (98-107) 02/22/20 08:06 Carbon Dioxide 34 mmol/L (22-30) H 02/22/20 08:06 Anion Gap 10 mmol/L 02/22/20 08:06 BUN 21 mg/dL (9-20) H 02/22/20 08:06 Creatinine 0.4 mg/dL (0.8-1.3) L 02/22/20 08:06 Estimated GFR > 60 ml/min 02/22/20 08:06 BUN/Creatinine Ratio 53 % 02/22/20 08:06 Glucose 149 mg/dL (75-100) H 02/22/20 08:06 POC Glucose 109 mg/dL (70-105) H 02/25/20 12:08 Lactic Acid 1.60 mmol/L (0.7-2.0) 02/03/20 12:49 Calcium 9.5 mg/dL (8.4-10.2) 02/22/20 08:06 Ferritin 84.4 ng/mL (30.0-300.0) 11/24/19 04:53 Phosphorus 4.10 mg/dL (2.5-4.5) 01/31/20 19:24 Magnesium 2.40 mg/dL (1.7-2.3) H 02/10/20 07:40 Total Bilirubin 1.30 mg/dL (0.1-1.2) H 02/08/20 19:00 Direct Bilirubin 0.9 mg/dL (0-0.2) H 02/08/20 19:00 Indirect Bilirubin 0.4 mg/dL 02/08/20 19:00 Total Creatine Kinase 141 units/L (55-170) 11/24/19 02:53 CK-MB (CK-2) 4.3 ng/mL (0.0-4.0) H 11/24/19 02:53 AST 309 units/L (5-40) H 02/08/20 19:00 ALT 650 units/L (7-56) H 02/08/20 19:00 CK-MB (CK-2) Rel Index 3.0 (0-4) 11/24/19 02:53 Alkaline Phosphatase 109 units/L (35-129) 02/08/20 19:00 C-Reactive Protein 8.50 mg/dL (0.00-1.30) H 12/01/19 12:16 Ammonia 35.0 umol/L (25-60) 02/03/20 12:49 Lactate Dehydrogenase 228 units/L (91-180) H 12/19/19 04:45 Troponin T < 0.010 ng/mL (0.00-0.029) 01/19/20 01:35 NT-Pro-B Natriuret Pep 3866 pg/mL (0-900) H 01/01/20 10:40 Total Protein 6.2 g/dL (6.3-8.2) L 02/08/20 19:00 Albumin 2.7 g/dL (3.9-5) L 02/08/20 19:00 Albumin/Globulin Ratio 0.8 % 02/08/20 19:00 Procalcitonin 0.44 ng/mL (<0.15) 02/03/20 12:49 Arterial Blood Glucose 151 mg/dL (65-95) H 02/11/20 14:11 Arterial Blood Ionized Calcium 4.7 mg/dL (4.6-5.3) 02/11/20 14:11 Urine Color Cecy (Yellow) 12/31/19 18:04 Urine Turbidity Clear (Clear) 12/31/19 18:04 Urine pH 5.0 (5.0-7.0) 12/31/19 18:04 Ur Specific Spangler 1.023 (1.003-1.030) 12/31/19 18:04 Urine Protein <15 mg/dl mg/dL (Negative) 12/31/19 18:04 Urine Glucose (UA) Neg mg/dL (Negative) 12/31/19 18:04 Urine Ketones Neg mg/dL (Negative) 12/31/19 18:04 Urine Blood Neg (Negative) 12/31/19 18:04 Urine Bacteria (Auto) 1+ /HPF (Negative) 12/03/19 06:03 Urine Nitrite Neg (Negative) 12/31/19 18:04 Urine Bilirubin Neg (Negative) 12/31/19 18:04 Urine Urobilinogen 4.0 mg/dL (<2.0) 12/31/19 18:04 Ur Leukocyte Esterase Neg (Negative) 12/31/19 18:04 Urine WBC (Auto) 2.0 /HPF (0.0-6.0) 12/31/19 18:04 Urine RBC (Auto) 3.0 /HPF (0.0-6.0) 12/31/19 18:04 U Epithel Cells (Auto) 2.0 /HPF (0-13.0) 12/31/19 18:04 Urine Mucus 1+ /HPF 12/31/19 18:04 Urine Creatinine 57.4 mg/dL (0.1-20.0) H 01/31/20 Unknown Urine Sodium 59 mmol/L 01/31/20 Unknown Vancomycin Trough 14.2 ug/mL (5.0-20.0) 12/13/19 15:01 Coronavirus (PCR) Negative (Negative) 12/29/19 10:07 Hepatitis A IgM Ab Non-reactive (NonReactive) 02/05/20 06:37 Hep Bs Antigen Non-reactive (Negative) 02/05/20 06:37 Hep B Core IgM Ab Non-reactive (NonReactive) 02/05/20 06:37 Hepatitis C Antibody Non-reactive (NonReactive) 02/05/20 06:37 Blood Type O POSITIVE 01/21/20 13:00 Antibody Screen Negative 01/21/20 13:00 - Diagnostic Impressions Diagnostic Impressions: Echocardiogram 11/29/19 07:37 Transthoracic Echocardiogram Indication: CHF BP: 116/72 HR: 33 Conclusions *The study is technically limited due to poor acoustic windows. *Global left ventricular systolic function is normal. *The estimated ejection fraction is 50-55%. *Mild concentric left ventricular hypertrophy is observed. *There is trace of mitral regurgitation. *There is mild tricuspid regurgitation. Findings Procedure Info: The study quality is poor. The study is technically limited due to poor acoustic windows. The study is technically limited due to patient body habitus. Left Ventricle: The left ventricular chamber size is normal. Mild concentric left ventricular hypertrophy is observed. Global left ventricular systolic function is normal. The estimated ejection fraction is 50-55%. Left Atrium: The left atrial chamber size is normal. Right Ventricle: The right ventricular cavity size is normal. Right Atrium: The right atrial cavity size is normal. Aortic Valve: The aortic valve leaflets are moderately thickened. There is trace of aortic regurgitation. There is no evidence of aortic stenosis. Mitral Valve: The mitral valve leaflets are mildly thickened. There is trace of mitral regurgitation. There is no evidence of mitral stenosis. Tricuspid Valve: There is mild tricuspid regurgitation. No pulmonary hypertension is noted. Pulmonic Valve: There is trace pulmonic regurgitation. Pericardium: There is no pericardial effusion. Aorta: There is no dilatation of the aortic root. Venous: The inferior vena cava appears normal in size. Contrast: Definity was used to optimize study. Intravenous contrast was used to enhance endocardial border definition. Measurements Chambers 2D Name Value Normal Range Ao root diameter (2D) 3.4 cm (2 - 3.7) Aortic Valve Name Value Normal Range AV Vmax 0.98 m/sec - AV VTI 16.76 cm - AV peak gradient 3.83 mmHg - AV mean gradient 2.57 mmHg - LVOT diameter 3.11 cm - LVOT Vmax 0.68 m/sec - LVOT VTI 11.52 cm - LVOT peak gradient 1.84 mmHg - LVOT mean gradient 1.27 mmHg - SV LVOT 87.31 ml - MALOU (continuity Vmax) 5.24 cm2 - MALOU (continuity VTI) 5.21 cm2 - Tricuspid Valve Name Value Normal Range IVC diameter 2.24 cm (1.2 - 2.3) Hoffman/IV: Voiding Method Indwelling Catheter IV Catheter Type [Left INT / Saline Lock Antecubital] IV Catheter Type [Right INT / Saline Lock Forearm] IV Catheter Type [Right Hand] Peripheral IV IV Catheter Type [Right Upper INT / Saline Lock arm] IV Catheter Type [Left Upper Mid-line arm] IV Catheter Type [Left Forearm INT / Saline Lock ] IV Catheter Type [Left Hand] Peripheral IV IV Catheter Type [Left Wrist] INT / Saline Lock IV Catheter Type [Right Peripheral IV Antecubital] Active Medications - Current Medications Current Medications: Generic Name Dose Route Start Last Admin Trade Name Freq PRN Reason Stop Dose Admin Acetaminophen 650 mg 12/31/19 11:43 02/19/20 17:01 Tylenol FEEDTUBE 650 mg Q6H PRN Administration Pain, Mild (1-3) Lipase/Protease/Amylase 1 each 01/09/20 12:01 Pancreaze 10,500 Unit FEEDTUBE PRN PRN For Clogged Feeding Tube Apixaban 5 mg 01/22/20 22:00 02/25/20 09:23 Eliquis PO 5 mg Q12HR CAR Administration Protocol Atorvastatin Calcium 40 mg 01/20/20 22:00 02/24/20 23:21 Lipitor PO 40 mg QHS CAR Administration Clopidogrel Bisulfate 75 mg 01/21/20 06:00 02/25/20 09:23 Plavix PO 75 mg QDAY CAR Administration Dextrose 50 ml 01/31/20 18:51 02/05/20 00:56 D50w (25gm) Syringe IV 50 ml Q30MIN PRN Administration Hypoglycemia Protocol Digoxin 0.125 mg 02/25/20 17:00 Lanoxin PO DAILY@1700 [facility] Docusate Sodium 100 mg 02/22/20 10:00 02/25/20 09:23 Colace FEEDTUBE 100 mg BID CAR Administration Glycopyrrolate 2 mg 02/24/20 21:00 02/25/20 14:15 Glycopyrrolate PO 2 mg TID [facility] Administration Haloperidol Lactate 5 mg 02/10/20 14:20 02/17/20 04:49 Haldol IV 5 mg Q6H PRN Administration Agitation Hydrophilic Ointment 1 applic 01/17/20 15:26 02/24/20 23:20 Vaseline Lip Therapy TP 1 applic DIRECT PRN Administration Dry Lips Insulin Human Regular 0 unit 02/01/20 18:00 02/25/20 14:06 Humulin R SUB-Q Not Given Q6H [facility] Protocol Lansoprazole 30 mg 02/05/20 16:00 02/25/20 09:23 Prevacid Solutab FEEDTUBE 30 mg QDAY CAR Administration Metoprolol Tartrate 5 mg 01/11/20 08:00 02/16/20 22:00 Metoprolol IV 5 mg Q6H PRN Administration SEE INSTRUCTIONS Midodrine 15 mg 02/04/20 16:00 02/25/20 11:54 Proamatine PO 15 mg TID@0800,1200,1600 [facility] Administration Morphine Sulfate 2 mg 01/06/20 15:41 02/24/20 14:42 Morphine IV 2 mg Q4H PRN Administration Pain, Moderate (4-6) Multi-Ingred Cream/Lotion/Oil/Oint 1 applic 02/01/20 15:52 Artificial Tears Ophth Oint OU Q4HR PRN Dry Eye(s) Nitroglycerin 0.4 mg 01/19/20 21:09 01/20/20 03:03 Nitrostat SL 0.4 mg .Q5MIN PRN Administration Chest Pain Ondansetron HCl 4 mg 01/05/20 14:37 02/16/20 17:25 Zofran IV 4 mg Q8H PRN Administration Nausea And Vomiting Polyethylene Glycol 17 gm 12/04/19 22:00 02/24/20 23:20 Miralax 3350 PO 17 gm QHS CAR Administration Quetiapine Fumarate 300 mg 01/13/20 22:00 02/25/20 09:23 Seroquel PO 300 mg BID CAR Administration Scopolamine 1 each 01/07/20 20:00 01/07/20 21:08 Transderm-Scop TD 1 each Q72HR CAR Administration Simple Syrup 15 ml 01/09/20 12:01 Simple Syrup FEEDTUBE PRN PRN Hypoglycemia Simple Syrup 30 ml 01/09/20 12:01 Simple Syrup FEEDTUBE PRN PRN Hypoglycemia Sodium Bicarbonate 325 mg 01/09/20 12:01 Sodium Bicarbonate FEEDTUBE PRN PRN For Clogged Feeding Tube Sodium Chloride 10 ml 11/24/19 10:00 02/25/20 09:24 Sodium Chloride Flush Syringe 10 Ml IV 10 ml BID CAR Administration Tamsulosin HCl 0.8 mg 12/20/19 22:00 02/24/20 23:20 Flomax PO 0.8 mg QHS CAR Administration Nutrition/Malnutrition Assess - Dietary Evaluation Nutrition/Malnutrition Findings: Nutrition Notes Start: 11/24/19 12:22 Freq: Status: Active Protocol: Document 02/19/20 09:28 LP (Rec: 02/19/20 09:30 LP [id number]) Nutrition Notes Initial or Follow up Reassessment Current Diagnosis Coronary Artery Disease,Heart Failure,Respiratory Failure, Stroke,Hyperlipidemia Other Pertinent Diagnosis Partial SBO, pneu Current Diet Vital AF 1.2 at 75ml/hr Labs/Tests Na 145 02/16/20 Pertinent Medications Reviewed Height 6 ft 2 in Weight 115.9 kg [place] Body Weight (kg) 86.36 BMI 32.8 Weight change and time frame Wt change noted. Weight Status Obese Subjective/Other Information Pt continues tolerating TF at goal. Na now WNL. Percent of energy/protein needs met: 99%/100% Burn Absent Trauma Absent GI Symptoms None Current % PO Negligible Minimum of two criteria Yes Muscle Mass Mild Depletion (non-severe) Fluid Accumulation Mild (non-severe) Reduced Finish Painter Strength Measurably Reduced (severe) #2 Nutrition Diagnosis Malnutrition Diagnosis Progress(for reassessment Continues documentation) #1 Nutrition Diagnosis Inadequate oral intake Diagnosis Progress(for reassessment Continues documentation) Is patient on ventilator? Yes Is Patient Ambulatory and/or Out of Bed No REE-([facility]-confined to bed) 2433.156 Kcal/Kg value to use for calculation 20 Approximate Energy Requirements Using 2318 kcal/Kg Calculation Used for Recommendations Kcal/kg Additional Notes Protein needs are 117-147g (1. 2-1.5 g/kg AdBW of 97.78kg) Fluid needs are 1.5L Nutrition Intervention Change Diet Order: Continue TF via PEG Nutrition Support: Vital AF 1.2 at 75ml/hr. increase Flush 250ml q4h for hypernatremia Flush 100ml q4h once hypernatremia is resolved Kcal 2,160 Protein (gm) 135 Fluid (mL) 1,460 Goal #1 Meet at least 75% of pt's energy and protein needs Goal #2 Weight maintenance Anticipated Discharge Needs: unable to determine at this time Follow-Up By: 02/26/20 Additional Comments Follow for stable TF
--- NOTE | 2020-02-25 16:31 | Progress Note ---
Assessment and Plan Acute hypoxemic respiratory failure Bilateral pneumonia, community acquired. Acute LLL branch P.E. Acute DVT Person under investigation for COVID-19 infection. Acute congestive heart failure exacerbation. History of cerebrovascular accident. Acute chronic obstructive pulmonary disease exacerbation. Hypertension and hypertensive urgency at presentation. History of arthritis. Leukocytosis. Lactic acidosis. Oropharyngeal dysphagia - repeat CXR in am - transfer to [facility] - continue Robinul & Scopolamine for secretion control - continue care as below otherwise; - resume daily SAT's and SBT assessment as tolerated - repeat CXR next 24 hours and address - continue to rest on AC qhs - rate control per cardiology team - continue prn haldol for agitation to avoid hypoventilation (stopped Lorazepam) - continue Flomax - antiinfective's per ID rec's - Midodrine for BP support - prn mucomyst nebs re: secretions - continue full anticoagulation with Apixaban - continue seroquel for anxiolysis / delirium - COVID isolation per facility protocol - prn diuresis while following electrolytes / I's & O's - continue to wean oxygen for O2 sat's > 92% - continue bronchodilators with routine trach care and pulmonary hygiene per RT - continue Robinul & Scopolamine for secretion control - VAP bundle addressed (Aspiration precautions, HOB >40) - continue to wean per pulmonary driven protocols - sedation target is RASS 0 to -1 - continue prn analgesia per CPOT score - follow clinically re: fever curves / trend WBC - Avoid delirium (no benzodiazepines if they can be avoided) - Maintain sleep-wake cycle - enteral nutrition at goal rate as tolerated - continue accucheck's with glycemic control per SSI for target blood glucose goal of 140-180 mg/dL while critically ill; Avoid hypoglycemia - for VTE he is on IV Heparin - continue stress ulcer prophylaxis with Famotidine - continue mobility protocols for pressure ulcer prophylaxis - continue fall precautions - continue wound care management per RN / WCT - Supportive transfusions to keep HgB>7g/dL - CXR's and ABG's prn - Continue to monitor neurologic function - Continue chronic home medications - Continue all supportive care ........ re-evaluate in am & prn CONDITION: CRITICAL PROGNOSIS: GUARDED CODE STATUS: FULL CODE The high probability of a clinically significant, sudden or life threatening deterioration of the [Respiratory, cardiovascular & neurological] system(s) required my full and direct attention, intervention and personal management. The aggregate critical care time was [36] minutes without overlap. Time includes spent on [x] Data Review and interpretation [x] Patient assessment and monitoring of vital signs [x] Documentation [x] Medication orders and management Subjective Date of service: 02/25/20 Principal diagnosis: Ac hypoxemic resp failure; Pneumonia; PUI COVID-19; CHF; COPD; HTN Interval history: Patient is seen today for: Acute hypoxemic respiratory failure; [place]. Pneumonia (CAP); PUI COVID-19 infection; AE-CHF; AE-COPD; H/O CVA; HTN Seen and examined at bedside; 24 hour events reviewed; nursing and respiratory care staff consulted; no adverse overnight events reported to me; resting peacefully in bed; remains a difficult wean; on PSV now; No N/V/F/C Objective Vital Signs - 12hr 02/25/20 02/25/20 02/25/20 05:00 05:30 06:00 Temperature Pulse Rate 115 H 106 H 100 H Pulse Rate [ From Monitor] Respiratory 20 21 18 Rate Blood Pressure 99/79 103/74 118/76 O2 Sat by Pulse 98 100 99 Oximetry O2 Sat by Pulse Oximetry [ Assessment] 02/25/20 02/25/20 02/25/20 06:30 07:00 07:30 Temperature Pulse Rate 95 H 93 H 111 H Pulse Rate [ From Monitor] Respiratory 17 18 17 Rate Blood Pressure 108/81 102/76 102/76 O2 Sat by Pulse 99 99 99 Oximetry O2 Sat by Pulse Oximetry [ Assessment] 02/25/20 02/25/20 02/25/20 08:00 08:30 08:33 Temperature 98.4 F Pulse Rate 92 H 106 H 100 H Pulse Rate [ 98 H From Monitor] Respiratory 18 18 18 Rate Blood Pressure 106/82 110/81 118/76 O2 Sat by Pulse 100 99 99 Oximetry O2 Sat by Pulse Oximetry [ Assessment] 02/25/20 02/25/20 02/25/20 08:35 09:00 09:30 Temperature Pulse Rate 107 H 124 H Pulse Rate [ From Monitor] Respiratory 17 20 Rate Blood Pressure 111/83 119/87 O2 Sat by Pulse 99 99 Oximetry O2 Sat by Pulse 98 Oximetry [ Assessment] 02/25/20 02/25/20 02/25/20 10:00 10:30 11:00 Temperature Pulse Rate 100 H 111 H 104 H Pulse Rate [ From Monitor] Respiratory 20 13 19 Rate Blood Pressure 113/86 116/83 116/83 O2 Sat by Pulse 100 99 98 Oximetry O2 Sat by Pulse Oximetry [ Assessment] 02/25/20 02/25/20 02/25/20 11:30 11:46 12:00 Temperature 97.9 F Pulse Rate 94 H 104 H 100 H Pulse Rate [ 97 H From Monitor] Respiratory 17 23 14 Rate Blood Pressure 105/60 116/83 97/67 O2 Sat by Pulse 97 98 100 Oximetry O2 Sat by Pulse Oximetry [ Assessment] 02/25/20 02/25/20 02/25/20 12:30 13:00 13:30 Temperature Pulse Rate 95 H 101 H 126 H Pulse Rate [ From Monitor] Respiratory 19 17 22 Rate Blood Pressure 117/95 115/89 111/82 O2 Sat by Pulse 100 100 98 Oximetry O2 Sat by Pulse Oximetry [ Assessment] 02/25/20 02/25/20 02/25/20 14:00 14:28 15:45 Temperature Pulse Rate 103 H 103 H Pulse Rate [ From Monitor] Respiratory 21 Rate Blood Pressure 121/85 121/85 O2 Sat by Pulse 99 99 Oximetry O2 Sat by Pulse 97 Oximetry [ Assessment] 02/25/20 16:00 Temperature 97.9 F Pulse Rate Pulse Rate [ From Monitor] Respiratory Rate Blood Pressure O2 Sat by Pulse Oximetry O2 Sat by Pulse Oximetry [ Assessment] Constitutional: alert, other (elelelderly and obese male, normocephalic with mildly increased respiratory effort at rest) Eyes: non-icteric ENT: oropharynx moist, other (+ midline tracheostomy) Neck: supple, no JVD Effort: mildly labored Ascultation: Bilateral: diminished breath sounds, rhonchi, other (mild tracheal secretions ) Percussion: Bilateral: not dull Cardiovascular: irregular rhythm Gastrointestinal: normoactive bowel sounds, soft, non-tender, non-distended (protuberant), other (protuberant; PEG in place) Integumentary: normal Extremities: no cyanosis, pulses normal, no ischemia or petechiae, edema (bilateral lower) Neurologic: non-focal exam (moves extremities), pupils equal and round, other (intermittent agitation) Psychiatric: depressed CBC and BMP: 02/22/20 08:06 02/22/20 08:06 ABG, PT/INR, D-dimer: ABG ABG pH 7.461 pH Units (7.350-7.450) H 02/20/20 06:45 POC ABG pCO2 34.8 mmHg (32.0-48.0) 02/11/20 14:11 ABG pCO2 47.8 mm Hg 02/20/20 06:45 POC ABG pO2 77.7 mmHg (83-108) L 02/11/20 14:11 ABG pO2 88.7 mm Hg (80.0-90.0) 02/20/20 06:45 POC ABG HCO3 26.7 02/11/20 14:11 ABG O2 Saturation 97.2 % (95.0-99.0) 02/20/20 06:45 PT/INR, D-dimer PT 27.0 Sec. (12.2-14.9) H 02/07/20 15:03 INR 2.46 (0.87-1.13) H 02/07/20 15:03 Abnormal lab findings: Abnormal Labs 11/24/19 11/24/19 11/24/19 02:53 02:53 03:45 WBC 14.3 H RBC Hgb Hct MCHC RDW 17.2 H MCV MCH Lymph % (Auto) [place] % (Auto) [place] # Eos # Lymph # (Auto) [place] # (Auto) Eos # (Auto) Seg Neutrophils % Seg Neuts % (Manual) Baso # (Auto) Lymphocytes % (Manual) Monocytes % (Manual) Eosinophils % (Manual) Basophils % (Manual) Seg Neutrophils # Seg Neutrophils # Man 8.3 H Lymphocytes # (Manual) Monocytes # (Manual) 0.9 H Eosinophils # (Manual) Nucleated RBC % Basophils # (Manual) PT INR APTT Heparin Anti-Xa Level ABG pH 7.313 L POC ABG pO2 ABG pO2 102.8 H ABG HCO3 ABG O2 Saturation ABG Base Excess -2.9 L POC ABG pCO2 ABG Hemoglobin ABG Oxyhemoglobin ABG Chloride ABG Glucose Oxyhemoglobin 93.9 L Sodium Potassium Chloride Carbon Dioxide BUN Creatinine Glucose 195 H POC Glucose Lactic Acid Calcium Phosphorus Magnesium AST ALT Lactate Dehydrogenase Total Bilirubin Direct Bilirubin CK-MB (CK-2) 4.3 H C-Reactive Protein NT-Pro-B Natriuret Pep 1181 H Total Protein Albumin Arterial Blood Glucose Urine WBC (Auto) Urine Creatinine 11/24/19 11/24/19 11/24/19 04:53 04:53 10:37 WBC RBC Hgb Hct MCHC RDW MCV MCH Lymph % (Auto) [place] % (Auto) [place] # Eos # Lymph # (Auto) [place] # (Auto) Eos # (Auto) Seg Neutrophils % Seg Neuts % (Manual) Baso # (Auto) Lymphocytes % (Manual) Monocytes % (Manual) Eosinophils % (Manual) Basophils % (Manual) Seg Neutrophils # Seg Neutrophils # Man Lymphocytes # (Manual) Monocytes # (Manual) Eosinophils # (Manual) Nucleated RBC % Basophils # (Manual) PT INR APTT Heparin Anti-Xa Level ABG pH POC ABG pO2 ABG pO2 ABG HCO3 ABG O2 Saturation ABG Base Excess POC ABG pCO2 ABG Hemoglobin ABG Oxyhemoglobin ABG Chloride ABG Glucose Oxyhemoglobin Sodium Potassium Chloride Carbon Dioxide BUN Creatinine Glucose 162 H POC Glucose Lactic Acid 2.40 H* 2.50 H* Calcium Phosphorus Magnesium AST ALT Lactate Dehydrogenase 240 H Total Bilirubin Direct Bilirubin CK-MB (CK-2) C-Reactive Protein NT-Pro-B Natriuret Pep Total Protein Albumin Arterial Blood Glucose Urine WBC (Auto) Urine Creatinine 11/24/19 11/24/19 11/24/19 12:21 14:50 19:54 WBC RBC Hgb Hct MCHC RDW MCV MCH Lymph % (Auto) [place] % (Auto) [place] # Eos # Lymph # (Auto) [place] # (Auto) Eos # (Auto) Seg Neutrophils % Seg Neuts % (Manual) Baso # (Auto) Lymphocytes % (Manual) Monocytes % (Manual) Eosinophils % (Manual) Basophils % (Manual) Seg Neutrophils # Seg Neutrophils # Man Lymphocytes # (Manual) Monocytes # (Manual) Eosinophils # (Manual) Nucleated RBC % Basophils # (Manual) PT INR APTT Heparin Anti-Xa Level ABG pH POC ABG pO2 ABG pO2 ABG HCO3 ABG O2 Saturation ABG Base Excess POC ABG pCO2 ABG Hemoglobin ABG Oxyhemoglobin ABG Chloride ABG Glucose Oxyhemoglobin Sodium Potassium Chloride Carbon Dioxide BUN Creatinine Glucose POC Glucose 145 H 143 H 124 H Lactic Acid Calcium Phosphorus Magnesium AST ALT Lactate Dehydrogenase Total Bilirubin Direct Bilirubin CK-MB (CK-2) C-Reactive Protein NT-Pro-B Natriuret Pep Total Protein Albumin Arterial Blood Glucose Urine WBC (Auto) Urine Creatinine 11/25/19 11/25/19 11/25/19 00:18 03:18 05:11 WBC 13.7 H RBC Hgb Hct MCHC RDW 17.1 H MCV MCH Lymph % (Auto) 10.8 L [place] % (Auto) 8.7 H [place] # 1.2 H Eos # Lymph # (Auto) [place] # (Auto) Eos # (Auto) Seg Neutrophils % 80.2 H Seg Neuts % (Manual) Baso # (Auto) Lymphocytes % (Manual) Monocytes % (Manual) Eosinophils % (Manual) Basophils % (Manual) Seg Neutrophils # 11.0 H Seg Neutrophils # Man Lymphocytes # (Manual) Monocytes # (Manual) Eosinophils # (Manual) Nucleated RBC % Basophils # (Manual) PT INR APTT Heparin Anti-Xa Level ABG pH 7.333 L POC ABG pO2 ABG pO2 61.2 L ABG HCO3 ABG O2 Saturation 90.2 L ABG Base Excess POC ABG pCO2 ABG Hemoglobin 13.7 L ABG Oxyhemoglobin ABG Chloride ABG Glucose Oxyhemoglobin 88.2 L Sodium Potassium Chloride Carbon Dioxide BUN Creatinine Glucose POC Glucose 109 H Lactic Acid Calcium Phosphorus Magnesium AST ALT Lactate Dehydrogenase Total Bilirubin Direct Bilirubin CK-MB (CK-2) C-Reactive Protein NT-Pro-B Natriuret Pep Total Protein Albumin Arterial Blood Glucose Urine WBC (Auto) Urine Creatinine 11/25/19 11/25/19 11/26/19 05:11 11:40 03:12 WBC RBC Hgb Hct MCHC RDW MCV MCH Lymph % (Auto) [place] % (Auto) [place] # Eos # Lymph # (Auto) [place] # (Auto) Eos # (Auto) Seg Neutrophils % Seg Neuts % (Manual) Baso # (Auto) Lymphocytes % (Manual) Monocytes % (Manual) Eosinophils % (Manual) Basophils % (Manual) Seg Neutrophils # Seg Neutrophils # Man Lymphocytes # (Manual) Monocytes # (Manual) Eosinophils # (Manual) Nucleated RBC % Basophils # (Manual) PT INR APTT Heparin Anti-Xa Level ABG pH POC ABG pO2 ABG pO2 155.1 H ABG HCO3 27.8 H ABG O2 Saturation ABG Base Excess POC ABG pCO2 ABG Hemoglobin 12.2 L ABG Oxyhemoglobin ABG Chloride ABG Glucose Oxyhemoglobin Sodium Potassium Chloride Carbon Dioxide BUN 23 H Creatinine Glucose 110 H POC Glucose 108 H Lactic Acid Calcium Phosphorus Magnesium AST ALT Lactate Dehydrogenase Total Bilirubin Direct Bilirubin CK-MB (CK-2) C-Reactive Protein NT-Pro-B Natriuret Pep Total Protein Albumin Arterial Blood Glucose Urine WBC (Auto) Urine Creatinine 11/26/19 11/26/19 11/26/19 06:17 10:43 10:43 WBC 11.4 H RBC Hgb Hct MCHC RDW 17.1 H MCV MCH Lymph % (Auto) [place] % (Auto) [place] # Eos # Lymph # (Auto) [place] # (Auto) Eos # (Auto) Seg Neutrophils % Seg Neuts % (Manual) Baso # (Auto) Lymphocytes % (Manual) Monocytes % (Manual) Eosinophils % (Manual) Basophils % (Manual) Seg Neutrophils # Seg Neutrophils # Man Lymphocytes # (Manual) Monocytes # (Manual) Eosinophils # (Manual) Nucleated RBC % Basophils # (Manual) PT INR APTT Heparin Anti-Xa Level ABG pH POC ABG pO2 ABG pO2 ABG HCO3 ABG O2 Saturation ABG Base Excess POC ABG pCO2 ABG Hemoglobin ABG Oxyhemoglobin ABG Chloride ABG Glucose Oxyhemoglobin Sodium Potassium Chloride Carbon Dioxide BUN 29 H Creatinine Glucose POC Glucose 107 H Lactic Acid Calcium Phosphorus Magnesium AST ALT Lactate Dehydrogenase Total Bilirubin Direct Bilirubin CK-MB (CK-2) C-Reactive Protein NT-Pro-B Natriuret Pep Total Protein Albumin Arterial Blood Glucose Urine WBC (Auto) Urine Creatinine 11/26/19 11/27/19 11/27/19 17:11 01:53 04:11 WBC RBC Hgb Hct MCHC RDW MCV MCH Lymph % (Auto) [place] % (Auto) [place] # Eos # Lymph # (Auto) [place] # (Auto) Eos # (Auto) Seg Neutrophils % Seg Neuts % (Manual) Baso # (Auto) Lymphocytes % (Manual) Monocytes % (Manual) Eosinophils % (Manual) Basophils % (Manual) Seg Neutrophils # Seg Neutrophils # Man Lymphocytes # (Manual) Monocytes # (Manual) Eosinophils # (Manual) Nucleated RBC % Basophils # (Manual) PT INR APTT Heparin Anti-Xa Level ABG pH POC ABG pO2 ABG pO2 ABG HCO3 29.2 H ABG O2 Saturation ABG Base Excess 3.4 H POC ABG pCO2 ABG Hemoglobin 13.3 L ABG Oxyhemoglobin ABG Chloride ABG Glucose Oxyhemoglobin 94.5 L Sodium Potassium Chloride Carbon Dioxide BUN Creatinine Glucose POC Glucose 113 H 108 H Lactic Acid Calcium Phosphorus Magnesium AST ALT Lactate Dehydrogenase Total Bilirubin Direct Bilirubin CK-MB (CK-2) C-Reactive Protein NT-Pro-B Natriuret Pep Total Protein Albumin Arterial Blood Glucose Urine WBC (Auto) Urine Creatinine 11/27/19 11/28/19 11/28/19 05:27 05:00 05:25 WBC RBC Hgb Hct MCHC RDW MCV MCH Lymph % (Auto) [place] % (Auto) [place] # Eos # Lymph # (Auto) [place] # (Auto) Eos # (Auto) Seg Neutrophils % Seg Neuts % (Manual) Baso # (Auto) Lymphocytes % (Manual) Monocytes % (Manual) Eosinophils % (Manual) Basophils % (Manual) Seg Neutrophils # Seg Neutrophils # Man Lymphocytes # (Manual) Monocytes # (Manual) Eosinophils # (Manual) Nucleated RBC % Basophils # (Manual) PT INR APTT Heparin Anti-Xa Level ABG pH POC ABG pO2 68.1 L ABG pO2 ABG HCO3 ABG O2 Saturation ABG Base Excess POC ABG pCO2 ABG Hemoglobin ABG Oxyhemoglobin 91.2 L ABG Chloride ABG Glucose Oxyhemoglobin Sodium Potassium Chloride Carbon Dioxide BUN Creatinine Glucose POC Glucose 111 H 110 H Lactic Acid Calcium Phosphorus Magnesium AST ALT Lactate Dehydrogenase Total Bilirubin Direct Bilirubin CK-MB (CK-2) C-Reactive Protein NT-Pro-B Natriuret Pep Total Protein Albumin Arterial Blood Glucose Urine WBC (Auto) Urine Creatinine 11/28/19 11/28/19 11/28/19 12:08 13:47 13:47 WBC 11.3 H RBC Hgb Hct MCHC RDW 16.1 H MCV MCH Lymph % (Auto) [place] % (Auto) 9.9 H [place] # 1.1 H Eos # Lymph # (Auto) [place] # (Auto) Eos # (Auto) Seg Neutrophils % 71.4 H Seg Neuts % (Manual) Baso # (Auto) Lymphocytes % (Manual) Monocytes % (Manual) Eosinophils % (Manual) Basophils % (Manual) Seg Neutrophils # 8.1 H Seg Neutrophils # Man Lymphocytes # (Manual) Monocytes # (Manual) Eosinophils # (Manual) Nucleated RBC % Basophils # (Manual) PT INR APTT Heparin Anti-Xa Level ABG pH POC ABG pO2 ABG pO2 ABG HCO3 ABG O2 Saturation ABG Base Excess POC ABG pCO2 ABG Hemoglobin ABG Oxyhemoglobin ABG Chloride ABG Glucose Oxyhemoglobin Sodium Potassium Chloride Carbon Dioxide BUN 23 H Creatinine Glucose 123 H POC Glucose 112 H Lactic Acid Calcium Phosphorus Magnesium AST ALT Lactate Dehydrogenase Total Bilirubin Direct Bilirubin CK-MB (CK-2) C-Reactive Protein NT-Pro-B Natriuret Pep Total Protein Albumin 3.7 L Arterial Blood Glucose Urine WBC (Auto) Urine Creatinine 11/28/19 11/29/19 11/29/19 17:26 03:55 17:04 WBC RBC Hgb Hct MCHC RDW MCV MCH Lymph % (Auto) [place] % (Auto) [place] # Eos # Lymph # (Auto) [place] # (Auto) Eos # (Auto) Seg Neutrophils % Seg Neuts % (Manual) Baso # (Auto) Lymphocytes % (Manual) Monocytes % (Manual) Eosinophils % (Manual) Basophils % (Manual) Seg Neutrophils # Seg Neutrophils # Man Lymphocytes # (Manual) Monocytes # (Manual) Eosinophils # (Manual) Nucleated RBC % Basophils # (Manual) PT INR APTT Heparin Anti-Xa Level ABG pH POC ABG pO2 ABG pO2 65.7 L ABG HCO3 28.3 H ABG O2 Saturation 93.9 L ABG Base Excess 3.6 H POC ABG pCO2 ABG Hemoglobin 13.3 L ABG Oxyhemoglobin ABG Chloride ABG Glucose Oxyhemoglobin 91.5 L Sodium Potassium Chloride Carbon Dioxide BUN Creatinine Glucose POC Glucose 123 H 119 H Lactic Acid Calcium Phosphorus Magnesium AST ALT Lactate Dehydrogenase Total Bilirubin Direct Bilirubin CK-MB (CK-2) C-Reactive Protein NT-Pro-B Natriuret Pep Total Protein Albumin Arterial Blood Glucose Urine WBC (Auto) Urine Creatinine 11/30/19 11/30/19 11/30/19 04:17 04:17 04:56 WBC 13.4 H RBC Hgb Hct MCHC RDW 15.6 H MCV MCH Lymph % (Auto) [place] % (Auto) [place] # Eos # Lymph # (Auto) [place] # (Auto) Eos # (Auto) Seg Neutrophils % Seg Neuts % (Manual) Baso # (Auto) Lymphocytes % (Manual) Monocytes % (Manual) Eosinophils % (Manual) Basophils % (Manual) Seg Neutrophils # Seg Neutrophils # Man Lymphocytes # (Manual) Monocytes # (Manual) Eosinophils # (Manual) Nucleated RBC % Basophils # (Manual) PT INR APTT Heparin Anti-Xa Level ABG pH POC ABG pO2 ABG pO2 56.3 L ABG HCO3 29.3 H ABG O2 Saturation 91.5 L ABG Base Excess 4.7 H POC ABG pCO2 ABG Hemoglobin 12.1 L ABG Oxyhemoglobin ABG Chloride ABG Glucose Oxyhemoglobin 89.2 L Sodium 147 H Potassium Chloride Carbon Dioxide BUN 30 H Creatinine Glucose 124 H POC Glucose Lactic Acid Calcium Phosphorus Magnesium AST ALT Lactate Dehydrogenase Total Bilirubin Direct Bilirubin CK-MB (CK-2) C-Reactive Protein NT-Pro-B Natriuret Pep Total Protein Albumin 3.8 L Arterial Blood Glucose Urine WBC (Auto) Urine Creatinine 11/30/19 11/30/19 11/30/19 05:51 11:54 18:17 WBC RBC Hgb Hct MCHC RDW MCV MCH Lymph % (Auto) [place] % (Auto) [place] # Eos # Lymph # (Auto) [place] # (Auto) Eos # (Auto) Seg Neutrophils % Seg Neuts % (Manual) Baso # (Auto) Lymphocytes % (Manual) Monocytes % (Manual) Eosinophils % (Manual) Basophils % (Manual) Seg Neutrophils # Seg Neutrophils # Man Lymphocytes # (Manual) Monocytes # (Manual) Eosinophils # (Manual) Nucleated RBC % Basophils # (Manual) PT INR APTT Heparin Anti-Xa Level ABG pH POC ABG pO2 ABG pO2 ABG HCO3 ABG O2 Saturation ABG Base Excess POC ABG pCO2 ABG Hemoglobin ABG Oxyhemoglobin ABG Chloride ABG Glucose Oxyhemoglobin Sodium Potassium Chloride Carbon Dioxide BUN Creatinine Glucose POC Glucose 127 H 115 H 143 H Lactic Acid Calcium Phosphorus Magnesium AST ALT Lactate Dehydrogenase Total Bilirubin Direct Bilirubin CK-MB (CK-2) C-Reactive Protein NT-Pro-B Natriuret Pep Total Protein Albumin Arterial Blood Glucose Urine WBC (Auto) Urine Creatinine 12/01/19 12/01/19 12/01/19 01:18 05:22 12:16 WBC RBC Hgb Hct MCHC RDW MCV MCH Lymph % (Auto) [place] % (Auto) [place] # Eos # Lymph # (Auto) [place] # (Auto) Eos # (Auto) Seg Neutrophils % Seg Neuts % (Manual) Baso # (Auto) Lymphocytes % (Manual) Monocytes % (Manual) Eosinophils % (Manual) Basophils % (Manual) Seg Neutrophils # Seg Neutrophils # Man Lymphocytes # (Manual) Monocytes # (Manual) Eosinophils # (Manual) Nucleated RBC % Basophils # (Manual) PT INR APTT Heparin Anti-Xa Level ABG pH POC ABG pO2 ABG pO2 ABG HCO3 ABG O2 Saturation ABG Base Excess POC ABG pCO2 ABG Hemoglobin ABG Oxyhemoglobin ABG Chloride ABG Glucose Oxyhemoglobin Sodium Potassium 3.5 L Chloride 107.8 H Carbon Dioxide BUN 37 H Creatinine Glucose 157 H POC Glucose 118 H 148 H Lactic Acid Calcium 8.2 L D Phosphorus Magnesium AST 48 H ALT 60 H Lactate Dehydrogenase 194 H Total Bilirubin Direct Bilirubin CK-MB (CK-2) C-Reactive Protein 8.50 H NT-Pro-B Natriuret Pep Total Protein 5.5 L Albumin 2.8 L Arterial Blood Glucose Urine WBC (Auto) Urine Creatinine 12/01/19 12/02/19 12/02/19 18:04 00:05 05:16 WBC 11.4 H RBC Hgb Hct MCHC RDW 15.9 H MCV MCH Lymph % (Auto) [place] % (Auto) 9.9 H [place] # 1.1 H Eos # Lymph # (Auto) [place] # (Auto) Eos # (Auto) Seg Neutrophils % 70.3 H Seg Neuts % (Manual) Baso # (Auto) Lymphocytes % (Manual) Monocytes % (Manual) Eosinophils % (Manual) Basophils % (Manual) Seg Neutrophils # 8.0 H Seg Neutrophils # Man Lymphocytes # (Manual) Monocytes # (Manual) Eosinophils # (Manual) Nucleated RBC % Basophils # (Manual) PT INR APTT Heparin Anti-Xa Level ABG pH POC ABG pO2 ABG pO2 ABG HCO3 ABG O2 Saturation ABG Base Excess POC ABG pCO2 ABG Hemoglobin ABG Oxyhemoglobin ABG Chloride ABG Glucose Oxyhemoglobin Sodium Potassium Chloride Carbon Dioxide BUN Creatinine Glucose POC Glucose 143 H 107 H Lactic Acid Calcium Phosphorus Magnesium AST ALT Lactate Dehydrogenase Total Bilirubin Direct Bilirubin CK-MB (CK-2) C-Reactive Protein NT-Pro-B Natriuret Pep Total Protein Albumin Arterial Blood Glucose Urine WBC (Auto) Urine Creatinine 12/02/19 12/02/19 12/02/19 05:16 06:03 11:52 WBC RBC Hgb Hct MCHC RDW MCV MCH Lymph % (Auto) [place] % (Auto) [place] # Eos # Lymph # (Auto) [place] # (Auto) Eos # (Auto) Seg Neutrophils % Seg Neuts % (Manual) Baso # (Auto) Lymphocytes % (Manual) Monocytes % (Manual) Eosinophils % (Manual) Basophils % (Manual) Seg Neutrophils # Seg Neutrophils # Man Lymphocytes # (Manual) Monocytes # (Manual) Eosinophils # (Manual) Nucleated RBC % Basophils # (Manual) PT INR APTT Heparin Anti-Xa Level ABG pH POC ABG pO2 ABG pO2 ABG HCO3 ABG O2 Saturation ABG Base Excess POC ABG pCO2 ABG Hemoglobin ABG Oxyhemoglobin ABG Chloride ABG Glucose Oxyhemoglobin Sodium 146 H Potassium Chloride Carbon Dioxide BUN 28 H Creatinine Glucose 123 H POC Glucose 110 H 152 H Lactic Acid Calcium Phosphorus Magnesium AST ALT Lactate Dehydrogenase Total Bilirubin Direct Bilirubin CK-MB (CK-2) C-Reactive Protein NT-Pro-B Natriuret Pep Total Protein Albumin Arterial Blood Glucose Urine WBC (Auto) Urine Creatinine 12/02/19 12/02/19 12/02/19 12:58 17:58 23:36 WBC RBC Hgb Hct MCHC RDW MCV MCH Lymph % (Auto) [place] % (Auto) [place] # Eos # Lymph # (Auto) [place] # (Auto) Eos # (Auto) Seg Neutrophils % Seg Neuts % (Manual) Baso # (Auto) Lymphocytes % (Manual) Monocytes % (Manual) Eosinophils % (Manual) Basophils % (Manual) Seg Neutrophils # Seg Neutrophils # Man Lymphocytes # (Manual) Monocytes # (Manual) Eosinophils # (Manual) Nucleated RBC % Basophils # (Manual) PT INR APTT Heparin Anti-Xa Level ABG pH POC ABG pO2 78.1 L ABG pO2 ABG HCO3 ABG O2 Saturation ABG Base Excess POC ABG pCO2 ABG Hemoglobin ABG Oxyhemoglobin ABG Chloride ABG Glucose Oxyhemoglobin Sodium Potassium Chloride Carbon Dioxide BUN Creatinine Glucose POC Glucose 120 H 123 H Lactic Acid Calcium Phosphorus Magnesium AST ALT Lactate Dehydrogenase Total Bilirubin Direct Bilirubin CK-MB (CK-2) C-Reactive Protein NT-Pro-B Natriuret Pep Total Protein Albumin Arterial Blood Glucose Urine WBC (Auto) Urine Creatinine 12/03/19 12/03/19 12/03/19 06:03 06:14 11:46 WBC RBC Hgb Hct MCHC RDW MCV MCH Lymph % (Auto) [place] % (Auto) [place] # Eos # Lymph # (Auto) [place] # (Auto) Eos # (Auto) Seg Neutrophils % Seg Neuts % (Manual) Baso # (Auto) Lymphocytes % (Manual) Monocytes % (Manual) Eosinophils % (Manual) Basophils % (Manual) Seg Neutrophils # Seg Neutrophils # Man Lymphocytes # (Manual) Monocytes # (Manual) Eosinophils # (Manual) Nucleated RBC % Basophils # (Manual) PT INR APTT Heparin Anti-Xa Level ABG pH POC ABG pO2 ABG pO2 ABG HCO3 ABG O2 Saturation ABG Base Excess POC ABG pCO2 ABG Hemoglobin ABG Oxyhemoglobin ABG Chloride ABG Glucose Oxyhemoglobin Sodium Potassium Chloride Carbon Dioxide BUN Creatinine Glucose POC Glucose 142 H 130 H Lactic Acid Calcium Phosphorus Magnesium AST ALT Lactate Dehydrogenase Total Bilirubin Direct Bilirubin CK-MB (CK-2) C-Reactive Protein NT-Pro-B Natriuret Pep Total Protein Albumin Arterial Blood Glucose Urine WBC (Auto) 8.0 H Urine Creatinine 12/03/19 12/03/19 12/04/19 15:50 17:39 00:04 WBC RBC Hgb Hct MCHC RDW MCV MCH Lymph % (Auto) [place] % (Auto) [place] # Eos # Lymph # (Auto) [place] # (Auto) Eos # (Auto) Seg Neutrophils % Seg Neuts % (Manual) Baso # (Auto) Lymphocytes % (Manual) Monocytes % (Manual) Eosinophils % (Manual) Basophils % (Manual) Seg Neutrophils # Seg Neutrophils # Man Lymphocytes # (Manual) Monocytes # (Manual) Eosinophils # (Manual) Nucleated RBC % Basophils # (Manual) PT INR APTT Heparin Anti-Xa Level ABG pH POC ABG pO2 ABG pO2 ABG HCO3 ABG O2 Saturation ABG Base Excess POC ABG pCO2 ABG Hemoglobin ABG Oxyhemoglobin ABG Chloride ABG Glucose Oxyhemoglobin Sodium Potassium Chloride Carbon Dioxide BUN Creatinine Glucose POC Glucose 146 H 133 H Lactic Acid Calcium Phosphorus 2.40 L Magnesium AST ALT Lactate Dehydrogenase Total Bilirubin Direct Bilirubin CK-MB (CK-2) C-Reactive Protein NT-Pro-B Natriuret Pep Total Protein Albumin Arterial Blood Glucose Urine WBC (Auto) Urine Creatinine 12/04/19 12/04/19 12/04/19 03:58 03:58 05:22 WBC 12.5 H RBC Hgb 11.2 L Hct 35.2 L MCHC RDW 16.0 H MCV MCH Lymph % (Auto) [place] % (Auto) 9.6 H [place] # 1.2 H Eos # 0.5 H Lymph # (Auto) [place] # (Auto) Eos # (Auto) Seg Neutrophils % Seg Neuts % (Manual) Baso # (Auto) Lymphocytes % (Manual) Monocytes % (Manual) Eosinophils % (Manual) Basophils % (Manual) Seg Neutrophils # 8.6 H Seg Neutrophils # Man Lymphocytes # (Manual) Monocytes # (Manual) Eosinophils # (Manual) Nucleated RBC % Basophils # (Manual) PT INR APTT Heparin Anti-Xa Level ABG pH POC ABG pO2 ABG pO2 ABG HCO3 ABG O2 Saturation ABG Base Excess POC ABG pCO2 ABG Hemoglobin ABG Oxyhemoglobin ABG Chloride ABG Glucose Oxyhemoglobin Sodium 146 H Potassium Chloride 108.6 H Carbon Dioxide BUN 30 H Creatinine 0.7 L Glucose 121 H POC Glucose 132 H Lactic Acid Calcium Phosphorus Magnesium AST ALT Lactate Dehydrogenase Total Bilirubin Direct Bilirubin CK-MB (CK-2) C-Reactive Protein NT-Pro-B Natriuret Pep Total Protein Albumin Arterial Blood Glucose Urine WBC (Auto) Urine Creatinine 12/04/19 12/04/19 12/05/19 13:26 18:43 00:19 WBC RBC Hgb Hct MCHC RDW MCV MCH Lymph % (Auto) [place] % (Auto) [place] # Eos # Lymph # (Auto) [place] # (Auto) Eos # (Auto) Seg Neutrophils % Seg Neuts % (Manual) Baso # (Auto) Lymphocytes % (Manual) Monocytes % (Manual) Eosinophils % (Manual) Basophils % (Manual) Seg Neutrophils # Seg Neutrophils # Man Lymphocytes # (Manual) Monocytes # (Manual) Eosinophils # (Manual) Nucleated RBC % Basophils # (Manual) PT INR APTT Heparin Anti-Xa Level ABG pH POC ABG pO2 ABG pO2 ABG HCO3 ABG O2 Saturation ABG Base Excess POC ABG pCO2 ABG Hemoglobin ABG Oxyhemoglobin ABG Chloride ABG Glucose Oxyhemoglobin Sodium Potassium Chloride Carbon Dioxide BUN Creatinine Glucose POC Glucose 185 H 156 H 150 H Lactic Acid Calcium Phosphorus Magnesium AST ALT Lactate Dehydrogenase Total Bilirubin Direct Bilirubin CK-MB (CK-2) C-Reactive Protein NT-Pro-B Natriuret Pep Total Protein Albumin Arterial Blood Glucose Urine WBC (Auto) Urine Creatinine 12/05/19 12/05/19 12/05/19 03:37 03:37 05:14 WBC 16.3 H RBC Hgb 11.4 L Hct MCHC RDW 15.6 H MCV MCH Lymph % (Auto) 9.9 L [place] % (Auto) 9.7 H [place] # 1.6 H Eos # Lymph # (Auto) [place] # (Auto) Eos # (Auto) Seg Neutrophils % 78.0 H Seg Neuts % (Manual) Baso # (Auto) Lymphocytes % (Manual) Monocytes % (Manual) Eosinophils % (Manual) Basophils % (Manual) Seg Neutrophils # 12.7 H Seg Neutrophils # Man Lymphocytes # (Manual) Monocytes # (Manual) Eosinophils # (Manual) Nucleated RBC % Basophils # (Manual) PT INR APTT Heparin Anti-Xa Level ABG pH POC ABG pO2 ABG pO2 ABG HCO3 ABG O2 Saturation ABG Base Excess POC ABG pCO2 ABG Hemoglobin ABG Oxyhemoglobin ABG Chloride ABG Glucose Oxyhemoglobin Sodium 146 H Potassium Chloride 107.2 H Carbon Dioxide BUN 27 H Creatinine 0.7 L Glucose 171 H POC Glucose 168 H Lactic Acid Calcium Phosphorus Magnesium AST ALT Lactate Dehydrogenase Total Bilirubin Direct Bilirubin CK-MB (CK-2) C-Reactive Protein NT-Pro-B Natriuret Pep Total Protein Albumin Arterial Blood Glucose Urine WBC (Auto) Urine Creatinine 12/05/19 12/05/19 12/05/19 12:31 18:10 23:58 WBC RBC Hgb Hct MCHC RDW MCV MCH Lymph % (Auto) [place] % (Auto) [place] # Eos # Lymph # (Auto) [place] # (Auto) Eos # (Auto) Seg Neutrophils % Seg Neuts % (Manual) Baso # (Auto) Lymphocytes % (Manual) Monocytes % (Manual) Eosinophils % (Manual) Basophils % (Manual) Seg Neutrophils # Seg Neutrophils # Man Lymphocytes # (Manual) Monocytes # (Manual) Eosinophils # (Manual) Nucleated RBC % Basophils # (Manual) PT INR APTT Heparin Anti-Xa Level ABG pH POC ABG pO2 ABG pO2 ABG HCO3 ABG O2 Saturation ABG Base Excess POC ABG pCO2 ABG Hemoglobin ABG Oxyhemoglobin ABG Chloride ABG Glucose Oxyhemoglobin Sodium Potassium Chloride Carbon Dioxide BUN Creatinine Glucose POC Glucose 159 H 198 H 115 H Lactic Acid Calcium Phosphorus Magnesium AST ALT Lactate Dehydrogenase Total Bilirubin Direct Bilirubin CK-MB (CK-2) C-Reactive Protein NT-Pro-B Natriuret Pep Total Protein Albumin Arterial Blood Glucose Urine WBC (Auto) Urine Creatinine 12/06/19 12/06/19 12/06/19 05:24 05:24 05:25 WBC 14.9 H RBC Hgb 10.8 L Hct 34.0 L MCHC RDW 15.6 H MCV MCH Lymph % (Auto) 10.7 L [place] % (Auto) 8.3 H [place] # 1.2 H Eos # Lymph # (Auto) [place] # (Auto) Eos # (Auto) Seg Neutrophils % 78.7 H Seg Neuts % (Manual) Baso # (Auto) Lymphocytes % (Manual) Monocytes % (Manual) Eosinophils % (Manual) Basophils % (Manual) Seg Neutrophils # 11.7 H Seg Neutrophils # Man Lymphocytes # (Manual) Monocytes # (Manual) Eosinophils # (Manual) Nucleated RBC % Basophils # (Manual) PT INR APTT Heparin Anti-Xa Level ABG pH POC ABG pO2 ABG pO2 ABG HCO3 ABG O2 Saturation ABG Base Excess POC ABG pCO2 ABG Hemoglobin ABG Oxyhemoglobin ABG Chloride ABG Glucose Oxyhemoglobin Sodium 148 H Potassium 5.1 H Chloride 107.6 H Carbon Dioxide BUN 27 H Creatinine 0.7 L Glucose 155 H POC Glucose 157 H Lactic Acid Calcium Phosphorus Magnesium AST ALT Lactate Dehydrogenase Total Bilirubin Direct Bilirubin CK-MB (CK-2) C-Reactive Protein NT-Pro-B Natriuret Pep Total Protein Albumin Arterial Blood Glucose Urine WBC (Auto) Urine Creatinine 12/07/19 12/07/19 12/07/19 00:13 05:34 11:33 WBC RBC Hgb Hct MCHC RDW MCV MCH Lymph % (Auto) [place] % (Auto) [place] # Eos # Lymph # (Auto) [place] # (Auto) Eos # (Auto) Seg Neutrophils % Seg Neuts % (Manual) Baso # (Auto) Lymphocytes % (Manual) Monocytes % (Manual) Eosinophils % (Manual) Basophils % (Manual) Seg Neutrophils # Seg Neutrophils # Man Lymphocytes # (Manual) Monocytes # (Manual) Eosinophils # (Manual) Nucleated RBC % Basophils # (Manual) PT INR APTT Heparin Anti-Xa Level ABG pH POC ABG pO2 ABG pO2 ABG HCO3 ABG O2 Saturation ABG Base Excess POC ABG pCO2 ABG Hemoglobin ABG Oxyhemoglobin ABG Chloride ABG Glucose Oxyhemoglobin Sodium Potassium Chloride Carbon Dioxide BUN Creatinine Glucose POC Glucose 142 H 111 H 169 H Lactic Acid Calcium Phosphorus Magnesium AST ALT Lactate Dehydrogenase Total Bilirubin Direct Bilirubin CK-MB (CK-2) C-Reactive Protein NT-Pro-B Natriuret Pep Total Protein Albumin Arterial Blood Glucose Urine WBC (Auto) Urine Creatinine 12/07/19 12/07/19 12/07/19 12:41 13:25 18:19 WBC 12.4 H RBC 3.53 L Hgb 10.2 L Hct 32.1 L MCHC RDW 15.3 H MCV MCH Lymph % (Auto) 10.6 L [place] % (Auto) 7.8 H [place] # 1.0 H Eos # Lymph # (Auto) [place] # (Auto) Eos # (Auto) Seg Neutrophils % 77.6 H Seg Neuts % (Manual) Baso # (Auto) Lymphocytes % (Manual) Monocytes % (Manual) Eosinophils % (Manual) Basophils % (Manual) Seg Neutrophils # 9.6 H Seg Neutrophils # Man Lymphocytes # (Manual) Monocytes # (Manual) Eosinophils # (Manual) Nucleated RBC % Basophils # (Manual) PT INR APTT Heparin Anti-Xa Level ABG pH POC ABG pO2 ABG pO2 ABG HCO3 ABG O2 Saturation ABG Base Excess POC ABG pCO2 ABG Hemoglobin ABG Oxyhemoglobin ABG Chloride ABG Glucose Oxyhemoglobin Sodium 149 H Potassium Chloride 108.4 H Carbon Dioxide BUN 26 H Creatinine 0.6 L Glucose 149 H POC Glucose 164 H Lactic Acid Calcium Phosphorus Magnesium 2.60 H AST 121 H ALT 145 H Lactate Dehydrogenase Total Bilirubin Direct Bilirubin CK-MB (CK-2) C-Reactive Protein NT-Pro-B Natriuret Pep Total Protein Albumin 2.6 L Arterial Blood Glucose Urine WBC (Auto) Urine Creatinine 12/07/19 12/08/19 12/08/19 22:25 00:02 03:55 WBC 13.3 H RBC 3.40 L Hgb 9.7 L Hct 30.8 L MCHC 31 L RDW 15.5 H MCV MCH Lymph % (Auto) [place] % (Auto) 8.1 H [place] # 1.1 H Eos # Lymph # (Auto) [place] # (Auto) Eos # (Auto) Seg Neutrophils % 73.0 H Seg Neuts % (Manual) Baso # (Auto) Lymphocytes % (Manual) Monocytes % (Manual) Eosinophils % (Manual) Basophils % (Manual) Seg Neutrophils # 9.7 H Seg Neutrophils # Man Lymphocytes # (Manual) Monocytes # (Manual) Eosinophils # (Manual) Nucleated RBC % Basophils # (Manual) PT INR APTT Heparin Anti-Xa Level 0.12 L ABG pH POC ABG pO2 ABG pO2 ABG HCO3 ABG O2 Saturation ABG Base Excess POC ABG pCO2 ABG Hemoglobin ABG Oxyhemoglobin ABG Chloride ABG Glucose Oxyhemoglobin Sodium Potassium Chloride Carbon Dioxide BUN Creatinine Glucose POC Glucose 151 H Lactic Acid Calcium Phosphorus Magnesium AST ALT Lactate Dehydrogenase Total Bilirubin Direct Bilirubin CK-MB (CK-2) C-Reactive Protein NT-Pro-B Natriuret Pep Total Protein Albumin Arterial Blood Glucose Urine WBC (Auto) Urine Creatinine 12/08/19 12/08/19 12/08/19 03:55 05:21 06:01 WBC RBC Hgb Hct MCHC RDW MCV MCH Lymph % (Auto) [place] % (Auto) [place] # Eos # Lymph # (Auto) [place] # (Auto) Eos # (Auto) Seg Neutrophils % Seg Neuts % (Manual) Baso # (Auto) Lymphocytes % (Manual) Monocytes % (Manual) Eosinophils % (Manual) Basophils % (Manual) Seg Neutrophils # Seg Neutrophils # Man Lymphocytes # (Manual) Monocytes # (Manual) Eosinophils # (Manual) Nucleated RBC % Basophils # (Manual) PT INR APTT Heparin Anti-Xa Level 0.20 L ABG pH POC ABG pO2 ABG pO2 ABG HCO3 ABG O2 Saturation ABG Base Excess POC ABG pCO2 ABG Hemoglobin ABG Oxyhemoglobin ABG Chloride ABG Glucose Oxyhemoglobin Sodium 149 H Potassium Chloride 108.0 H Carbon Dioxide BUN 28 H Creatinine 0.6 L Glucose 144 H POC Glucose 143 H Lactic Acid Calcium Phosphorus Magnesium AST 98 H ALT 145 H Lactate Dehydrogenase Total Bilirubin Direct Bilirubin CK-MB (CK-2) C-Reactive Protein NT-Pro-B Natriuret Pep Total Protein 6.0 L Albumin 2.4 L Arterial Blood Glucose Urine WBC (Auto) Urine Creatinine 12/08/19 12/08/19 12/08/19 12:08 18:11 23:53 WBC RBC Hgb Hct MCHC RDW MCV MCH Lymph % (Auto) [place] % (Auto) [place] # Eos # Lymph # (Auto) [place] # (Auto) Eos # (Auto) Seg Neutrophils % Seg Neuts % (Manual) Baso # (Auto) Lymphocytes % (Manual) Monocytes % (Manual) Eosinophils % (Manual) Basophils % (Manual) Seg Neutrophils # Seg Neutrophils # Man Lymphocytes # (Manual) Monocytes # (Manual) Eosinophils # (Manual) Nucleated RBC % Basophils # (Manual) PT INR APTT Heparin Anti-Xa Level ABG pH POC ABG pO2 ABG pO2 ABG HCO3 ABG O2 Saturation ABG Base Excess POC ABG pCO2 ABG Hemoglobin ABG Oxyhemoglobin ABG Chloride ABG Glucose Oxyhemoglobin Sodium Potassium Chloride Carbon Dioxide BUN Creatinine Glucose POC Glucose 172 H 122 H 162 H Lactic Acid Calcium Phosphorus Magnesium AST ALT Lactate Dehydrogenase Total Bilirubin Direct Bilirubin CK-MB (CK-2) C-Reactive Protein NT-Pro-B Natriuret Pep Total Protein Albumin Arterial Blood Glucose Urine WBC (Auto) Urine Creatinine 12/09/19 12/09/19 12/09/19 04:03 04:03 05:53 WBC RBC Hgb 9.1 L Hct 28.9 L MCHC RDW MCV MCH Lymph % (Auto) [place] % (Auto) [place] # Eos # Lymph # (Auto) [place] # (Auto) Eos # (Auto) Seg Neutrophils % Seg Neuts % (Manual) Baso # (Auto) Lymphocytes % (Manual) Monocytes % (Manual) Eosinophils % (Manual) Basophils % (Manual) Seg Neutrophils # Seg Neutrophils # Man Lymphocytes # (Manual) Monocytes # (Manual) Eosinophils # (Manual) Nucleated RBC % Basophils # (Manual) PT INR APTT Heparin Anti-Xa Level 0.15 L ABG pH POC ABG pO2 ABG pO2 ABG HCO3 ABG O2 Saturation ABG Base Excess POC ABG pCO2 ABG Hemoglobin ABG Oxyhemoglobin ABG Chloride ABG Glucose Oxyhemoglobin Sodium Potassium Chloride Carbon Dioxide BUN Creatinine Glucose POC Glucose 124 H Lactic Acid Calcium Phosphorus Magnesium AST ALT Lactate Dehydrogenase Total Bilirubin Direct Bilirubin CK-MB (CK-2) C-Reactive Protein NT-Pro-B Natriuret Pep Total Protein Albumin Arterial Blood Glucose Urine WBC (Auto) Urine Creatinine 12/09/19 12/09/19 12/10/19 09:43 12:41 00:13 WBC RBC Hgb Hct MCHC RDW MCV MCH Lymph % (Auto) [place] % (Auto) [place] # Eos # Lymph # (Auto) [place] # (Auto) Eos # (Auto) Seg Neutrophils % Seg Neuts % (Manual) Baso # (Auto) Lymphocytes % (Manual) Monocytes % (Manual) Eosinophils % (Manual) Basophils % (Manual) Seg Neutrophils # Seg Neutrophils # Man Lymphocytes # (Manual) Monocytes # (Manual) Eosinophils # (Manual) Nucleated RBC % Basophils # (Manual) PT INR APTT Heparin Anti-Xa Level ABG pH POC ABG pO2 ABG pO2 ABG HCO3 ABG O2 Saturation ABG Base Excess POC ABG pCO2 ABG Hemoglobin ABG Oxyhemoglobin ABG Chloride ABG Glucose Oxyhemoglobin Sodium Potassium Chloride Carbon Dioxide BUN 25 H Creatinine 0.6 L Glucose 131 H POC Glucose 109 H 120 H Lactic Acid Calcium Phosphorus Magnesium AST ALT Lactate Dehydrogenase Total Bilirubin Direct Bilirubin CK-MB (CK-2) C-Reactive Protein NT-Pro-B Natriuret Pep Total Protein Albumin Arterial Blood Glucose Urine WBC (Auto) Urine Creatinine 12/10/19 12/10/19 12/10/19 04:14 04:14 12:00 WBC 13.3 H RBC 3.34 L Hgb 9.6 L Hct 30.4 L MCHC RDW 15.4 H MCV MCH Lymph % (Auto) [place] % (Auto) [place] # Eos # Lymph # (Auto) [place] # (Auto) Eos # (Auto) Seg Neutrophils % Seg Neuts % (Manual) 75.0 H Baso # (Auto) Lymphocytes % (Manual) 13.0 L Monocytes % (Manual) 8.0 H Eosinophils % (Manual) Basophils % (Manual) 2.0 H Seg Neutrophils # Seg Neutrophils # Man 10.0 H Lymphocytes # (Manual) Monocytes # (Manual) 1.1 H Eosinophils # (Manual) Nucleated RBC % Basophils # (Manual) 0.3 H PT INR APTT Heparin Anti-Xa Level ABG pH POC ABG pO2 ABG pO2 ABG HCO3 ABG O2 Saturation ABG Base Excess POC ABG pCO2 ABG Hemoglobin ABG Oxyhemoglobin ABG Chloride ABG Glucose Oxyhemoglobin Sodium 147 H Potassium Chloride 108.3 H Carbon Dioxide BUN 21 H Creatinine 0.6 L Glucose 104 H POC Glucose 133 H Lactic Acid Calcium Phosphorus Magnesium AST ALT Lactate Dehydrogenase Total Bilirubin Direct Bilirubin CK-MB (CK-2) C-Reactive Protein NT-Pro-B Natriuret Pep Total Protein Albumin Arterial Blood Glucose Urine WBC (Auto) Urine Creatinine 12/10/19 12/10/19 12/11/19 18:44 21:20 00:08 WBC 14.9 H RBC 3.36 L Hgb 9.6 L Hct 30.5 L MCHC RDW 15.4 H MCV MCH Lymph % (Auto) [place] % (Auto) [place] # Eos # Lymph # (Auto) [place] # (Auto) Eos # (Auto) Seg Neutrophils % Seg Neuts % (Manual) Baso # (Auto) Lymphocytes % (Manual) Monocytes % (Manual) Eosinophils % (Manual) Basophils % (Manual) Seg Neutrophils # Seg Neutrophils # Man Lymphocytes # (Manual) Monocytes # (Manual) Eosinophils # (Manual) Nucleated RBC % Basophils # (Manual) PT INR APTT Heparin Anti-Xa Level ABG pH POC ABG pO2 ABG pO2 ABG HCO3 ABG O2 Saturation ABG Base Excess POC ABG pCO2 ABG Hemoglobin ABG Oxyhemoglobin ABG Chloride ABG Glucose Oxyhemoglobin Sodium Potassium Chloride Carbon Dioxide BUN Creatinine Glucose POC Glucose 119 H 134 H Lactic Acid Calcium Phosphorus Magnesium AST ALT Lactate Dehydrogenase Total Bilirubin Direct Bilirubin CK-MB (CK-2) C-Reactive Protein NT-Pro-B Natriuret Pep Total Protein Albumin Arterial Blood Glucose Urine WBC (Auto) Urine Creatinine 12/11/19 12/11/19 12/11/19 03:54 07:28 08:36 WBC 11.9 H RBC 3.25 L Hgb 9.6 L Hct 29.2 L MCHC RDW 15.7 H MCV MCH Lymph % (Auto) [place] % (Auto) [place] # Eos # Lymph # (Auto) [place] # (Auto) Eos # (Auto) Seg Neutrophils % Seg Neuts % (Manual) Baso # (Auto) Lymphocytes % (Manual) Monocytes % (Manual) Eosinophils % (Manual) Basophils % (Manual) Seg Neutrophils # Seg Neutrophils # Man Lymphocytes # (Manual) Monocytes # (Manual) Eosinophils # (Manual) Nucleated RBC % Basophils # (Manual) PT INR APTT Heparin Anti-Xa Level 0.10 L 0.16 L ABG pH POC ABG pO2 ABG pO2 ABG HCO3 ABG O2 Saturation ABG Base Excess POC ABG pCO2 ABG Hemoglobin ABG Oxyhemoglobin ABG Chloride ABG Glucose Oxyhemoglobin Sodium Potassium Chloride Carbon Dioxide BUN Creatinine Glucose POC Glucose Lactic Acid Calcium Phosphorus Magnesium AST ALT Lactate Dehydrogenase Total Bilirubin Direct Bilirubin CK-MB (CK-2) C-Reactive Protein NT-Pro-B Natriuret Pep Total Protein Albumin Arterial Blood Glucose Urine WBC (Auto) Urine Creatinine 12/11/19 12/11/19 12/11/19 08:36 11:45 17:15 WBC RBC Hgb Hct MCHC RDW MCV MCH Lymph % (Auto) [place] % (Auto) [place] # Eos # Lymph # (Auto) [place] # (Auto) Eos # (Auto) Seg Neutrophils % Seg Neuts % (Manual) Baso # (Auto) Lymphocytes % (Manual) Monocytes % (Manual) Eosinophils % (Manual) Basophils % (Manual) Seg Neutrophils # Seg Neutrophils # Man Lymphocytes # (Manual) Monocytes # (Manual) Eosinophils # (Manual) Nucleated RBC % Basophils # (Manual) PT INR APTT Heparin Anti-Xa Level ABG pH POC ABG pO2 ABG pO2 ABG HCO3 ABG O2 Saturation ABG Base Excess POC ABG pCO2 ABG Hemoglobin ABG Oxyhemoglobin ABG Chloride ABG Glucose Oxyhemoglobin Sodium Potassium Chloride Carbon Dioxide BUN Creatinine 0.5 L Glucose 128 H POC Glucose 136 H 109 H Lactic Acid Calcium Phosphorus Magnesium AST ALT Lactate Dehydrogenase Total Bilirubin Direct Bilirubin CK-MB (CK-2) C-Reactive Protein NT-Pro-B Natriuret Pep Total Protein Albumin Arterial Blood Glucose Urine WBC (Auto) Urine Creatinine 12/12/19 12/12/19 12/12/19 00:03 05:53 05:53 WBC RBC Hgb 8.8 L Hct 27.6 L MCHC RDW MCV MCH Lymph % (Auto) [place] % (Auto) [place] # Eos # Lymph # (Auto) [place] # (Auto) Eos # (Auto) Seg Neutrophils % Seg Neuts % (Manual) Baso # (Auto) Lymphocytes % (Manual) Monocytes % (Manual) Eosinophils % (Manual) Basophils % (Manual) Seg Neutrophils # Seg Neutrophils # Man Lymphocytes # (Manual) Monocytes # (Manual) Eosinophils # (Manual) Nucleated RBC % Basophils # (Manual) PT INR APTT Heparin Anti-Xa Level 0.22 L ABG pH POC ABG pO2 ABG pO2 ABG HCO3 ABG O2 Saturation ABG Base Excess POC ABG pCO2 ABG Hemoglobin ABG Oxyhemoglobin ABG Chloride ABG Glucose Oxyhemoglobin Sodium Potassium Chloride Carbon Dioxide BUN Creatinine Glucose POC Glucose 116 H Lactic Acid Calcium Phosphorus Magnesium AST ALT Lactate Dehydrogenase Total Bilirubin Direct Bilirubin CK-MB (CK-2) C-Reactive Protein NT-Pro-B Natriuret Pep Total Protein Albumin Arterial Blood Glucose Urine WBC (Auto) Urine Creatinine 12/12/19 12/12/19 12/12/19 09:38 12:18 17:44 WBC RBC Hgb Hct MCHC RDW MCV MCH Lymph % (Auto) [place] % (Auto) [place] # Eos # Lymph # (Auto) [place] # (Auto) Eos # (Auto) Seg Neutrophils % Seg Neuts % (Manual) Baso # (Auto) Lymphocytes % (Manual) Monocytes % (Manual) Eosinophils % (Manual) Basophils % (Manual) Seg Neutrophils # Seg Neutrophils # Man Lymphocytes # (Manual) Monocytes # (Manual) Eosinophils # (Manual) Nucleated RBC % Basophils # (Manual) PT INR APTT Heparin Anti-Xa Level ABG pH POC ABG pO2 ABG pO2 ABG HCO3 ABG O2 Saturation ABG Base Excess POC ABG pCO2 ABG Hemoglobin ABG Oxyhemoglobin ABG Chloride ABG Glucose Oxyhemoglobin Sodium Potassium Chloride Carbon Dioxide BUN Creatinine Glucose POC Glucose 115 H 146 H 146 H Lactic Acid Calcium Phosphorus Magnesium AST ALT Lactate Dehydrogenase Total Bilirubin Direct Bilirubin CK-MB (CK-2) C-Reactive Protein NT-Pro-B Natriuret Pep Total Protein Albumin Arterial Blood Glucose Urine WBC (Auto) Urine Creatinine 12/12/19 12/13/19 12/13/19 23:33 05:32 05:32 WBC 13.1 H RBC 3.27 L Hgb 9.5 L Hct 29.3 L MCHC RDW 15.6 H MCV MCH Lymph % (Auto) [place] % (Auto) [place] # Eos # Lymph # (Auto) [place] # (Auto) Eos # (Auto) Seg Neutrophils % Seg Neuts % (Manual) 74.0 H Baso # (Auto) Lymphocytes % (Manual) 8.0 L Monocytes % (Manual) 9.0 H Eosinophils % (Manual) 5.0 H Basophils % (Manual) Seg Neutrophils # Seg Neutrophils # Man 9.7 H Lymphocytes # (Manual) 1.0 L Monocytes # (Manual) 1.2 H Eosinophils # (Manual) 0.7 H Nucleated RBC % Basophils # (Manual) PT INR APTT Heparin Anti-Xa Level 0.20 L ABG pH POC ABG pO2 ABG pO2 ABG HCO3 ABG O2 Saturation ABG Base Excess POC ABG pCO2 ABG Hemoglobin ABG Oxyhemoglobin ABG Chloride ABG Glucose Oxyhemoglobin Sodium Potassium Chloride Carbon Dioxide BUN Creatinine Glucose POC Glucose 126 H Lactic Acid Calcium Phosphorus Magnesium AST ALT Lactate Dehydrogenase Total Bilirubin Direct Bilirubin CK-MB (CK-2) C-Reactive Protein NT-Pro-B Natriuret Pep Total Protein Albumin Arterial Blood Glucose Urine WBC (Auto) Urine Creatinine 09/20/20 09/20/20 09/20/20 05:32 05:46 11:57 WBC RBC Hgb Hct MCHC RDW MCV MCH Lymph % (Auto) [place] % (Auto) [place] # Eos # Lymph # (Auto) [place] # (Auto) Eos # (Auto) Seg Neutrophils % Seg Neuts % (Manual) Baso # (Auto) Lymphocytes % (Manual) Monocytes % (Manual) Eosinophils % (Manual) Basophils % (Manual) Seg Neutrophils # Seg Neutrophils # Man Lymphocytes # (Manual) Monocytes # (Manual) Eosinophils # (Manual) Nucleated RBC % Basophils # (Manual) PT INR APTT Heparin Anti-Xa Level ABG pH POC ABG pO2 ABG pO2 ABG HCO3 ABG O2 Saturation ABG Base Excess POC ABG pCO2 ABG Hemoglobin ABG Oxyhemoglobin ABG Chloride ABG Glucose Oxyhemoglobin Sodium Potassium Chloride Carbon Dioxide 31 H BUN Creatinine 0.6 L Glucose 114 H POC Glucose 118 H 133 H Lactic Acid Calcium Phosphorus Magnesium AST ALT Lactate Dehydrogenase Total Bilirubin Direct Bilirubin CK-MB (CK-2) C-Reactive Protein NT-Pro-B Natriuret Pep Total Protein Albumin Arterial Blood Glucose Urine WBC (Auto) Urine Creatinine 12/13/19 12/13/19 12/14/19 17:44 23:46 05:32 WBC RBC Hgb Hct MCHC RDW MCV MCH Lymph % (Auto) [place] % (Auto) [place] # Eos # Lymph # (Auto) [place] # (Auto) Eos # (Auto) Seg Neutrophils % Seg Neuts % (Manual) Baso # (Auto) Lymphocytes % (Manual) Monocytes % (Manual) Eosinophils % (Manual) Basophils % (Manual) Seg Neutrophils # Seg Neutrophils # Man Lymphocytes # (Manual) Monocytes # (Manual) Eosinophils # (Manual) Nucleated RBC % Basophils # (Manual) PT INR APTT Heparin Anti-Xa Level ABG pH POC ABG pO2 ABG pO2 ABG HCO3 ABG O2 Saturation ABG Base Excess POC ABG pCO2 ABG Hemoglobin ABG Oxyhemoglobin ABG Chloride ABG Glucose Oxyhemoglobin Sodium Potassium Chloride Carbon Dioxide BUN Creatinine Glucose POC Glucose 161 H 126 H 139 H Lactic Acid Calcium Phosphorus Magnesium AST ALT Lactate Dehydrogenase Total Bilirubin Direct Bilirubin CK-MB (CK-2) C-Reactive Protein NT-Pro-B Natriuret Pep Total Protein Albumin Arterial Blood Glucose Urine WBC (Auto) Urine Creatinine 12/14/19 12/14/19 12/14/19 06:03 06:03 09:37 WBC RBC Hgb 9.6 L Hct 30.4 L MCHC RDW MCV MCH Lymph % (Auto) [place] % (Auto) [place] # Eos # Lymph # (Auto) [place] # (Auto) Eos # (Auto) Seg Neutrophils % Seg Neuts % (Manual) Baso # (Auto) Lymphocytes % (Manual) Monocytes % (Manual) Eosinophils % (Manual) Basophils % (Manual) Seg Neutrophils # Seg Neutrophils # Man Lymphocytes # (Manual) Monocytes # (Manual) Eosinophils # (Manual) Nucleated RBC % Basophils # (Manual) PT INR APTT Heparin Anti-Xa Level 0.24 L ABG pH POC ABG pO2 ABG pO2 ABG HCO3 ABG O2 Saturation ABG Base Excess POC ABG pCO2 ABG Hemoglobin ABG Oxyhemoglobin ABG Chloride ABG Glucose Oxyhemoglobin Sodium Potassium Chloride Carbon Dioxide BUN Creatinine 0.6 L Glucose 162 H POC Glucose Lactic Acid Calcium Phosphorus Magnesium AST 71 H ALT 118 H Lactate Dehydrogenase Total Bilirubin Direct Bilirubin CK-MB (CK-2) C-Reactive Protein NT-Pro-B Natriuret Pep Total Protein 6.2 L Albumin 2.3 L Arterial Blood Glucose Urine WBC (Auto) Urine Creatinine 12/14/19 12/14/19 12/15/19 12:06 18:18 00:19 WBC RBC Hgb Hct MCHC RDW MCV MCH Lymph % (Auto) [place] % (Auto) [place] # Eos # Lymph # (Auto) [place] # (Auto) Eos # (Auto) Seg Neutrophils % Seg Neuts % (Manual) Baso # (Auto) Lymphocytes % (Manual) Monocytes % (Manual) Eosinophils % (Manual) Basophils % (Manual) Seg Neutrophils # Seg Neutrophils # Man Lymphocytes # (Manual) Monocytes # (Manual) Eosinophils # (Manual) Nucleated RBC % Basophils # (Manual) PT INR APTT Heparin Anti-Xa Level ABG pH POC ABG pO2 ABG pO2 ABG HCO3 ABG O2 Saturation ABG Base Excess POC ABG pCO2 ABG Hemoglobin ABG Oxyhemoglobin ABG Chloride ABG Glucose Oxyhemoglobin Sodium Potassium Chloride Carbon Dioxide BUN Creatinine Glucose POC Glucose 147 H 166 H 123 H Lactic Acid Calcium Phosphorus Magnesium AST ALT Lactate Dehydrogenase Total Bilirubin Direct Bilirubin CK-MB (CK-2) C-Reactive Protein NT-Pro-B Natriuret Pep Total Protein Albumin Arterial Blood Glucose Urine WBC (Auto) Urine Creatinine 12/15/19 12/15/19 12/15/19 05:28 05:29 05:29 WBC 14.9 H RBC 3.19 L Hgb 9.1 L Hct 28.7 L MCHC RDW 16.0 H MCV MCH Lymph % (Auto) [place] % (Auto) [place] # Eos # Lymph # (Auto) [place] # (Auto) Eos # (Auto) Seg Neutrophils % Seg Neuts % (Manual) Baso # (Auto) Lymphocytes % (Manual) Monocytes % (Manual) Eosinophils % (Manual) Basophils % (Manual) Seg Neutrophils # Seg Neutrophils # Man Lymphocytes # (Manual) Monocytes # (Manual) Eosinophils # (Manual) Nucleated RBC % Basophils # (Manual) PT INR APTT Heparin Anti-Xa Level 0.19 L ABG pH POC ABG pO2 ABG pO2 ABG HCO3 ABG O2 Saturation ABG Base Excess POC ABG pCO2 ABG Hemoglobin ABG Oxyhemoglobin ABG Chloride ABG Glucose Oxyhemoglobin Sodium Potassium Chloride Carbon Dioxide BUN Creatinine 0.6 L Glucose 110 H POC Glucose Lactic Acid Calcium Phosphorus Magnesium AST ALT Lactate Dehydrogenase Total Bilirubin Direct Bilirubin CK-MB (CK-2) C-Reactive Protein NT-Pro-B Natriuret Pep Total Protein Albumin Arterial Blood Glucose Urine WBC (Auto) Urine Creatinine 12/15/19 12/15/19 12/15/19 05:53 11:50 17:26 WBC RBC Hgb Hct MCHC RDW MCV MCH Lymph % (Auto) [place] % (Auto) [place] # Eos # Lymph # (Auto) [place] # (Auto) Eos # (Auto) Seg Neutrophils % Seg Neuts % (Manual) Baso # (Auto) Lymphocytes % (Manual) Monocytes % (Manual) Eosinophils % (Manual) Basophils % (Manual) Seg Neutrophils # Seg Neutrophils # Man Lymphocytes # (Manual) Monocytes # (Manual) Eosinophils # (Manual) Nucleated RBC % Basophils # (Manual) PT INR APTT Heparin Anti-Xa Level ABG pH POC ABG pO2 ABG pO2 ABG HCO3 ABG O2 Saturation ABG Base Excess POC ABG pCO2 ABG Hemoglobin ABG Oxyhemoglobin ABG Chloride ABG Glucose Oxyhemoglobin Sodium Potassium Chloride Carbon Dioxide BUN Creatinine Glucose POC Glucose 119 H 132 H 128 H Lactic Acid Calcium Phosphorus Magnesium AST ALT Lactate Dehydrogenase Total Bilirubin Direct Bilirubin CK-MB (CK-2) C-Reactive Protein NT-Pro-B Natriuret Pep Total Protein Albumin Arterial Blood Glucose Urine WBC (Auto) Urine Creatinine 12/15/19 12/16/19 12/16/19 23:11 05:30 05:46 WBC RBC Hgb 8.8 L Hct 27.9 L MCHC RDW MCV MCH Lymph % (Auto) [place] % (Auto) [place] # Eos # Lymph # (Auto) [place] # (Auto) Eos # (Auto) Seg Neutrophils % Seg Neuts % (Manual) Baso # (Auto) Lymphocytes % (Manual) Monocytes % (Manual) Eosinophils % (Manual) Basophils % (Manual) Seg Neutrophils # Seg Neutrophils # Man Lymphocytes # (Manual) Monocytes # (Manual) Eosinophils # (Manual) Nucleated RBC % Basophils # (Manual) PT INR APTT Heparin Anti-Xa Level ABG pH POC ABG pO2 ABG pO2 ABG HCO3 ABG O2 Saturation ABG Base Excess POC ABG pCO2 ABG Hemoglobin ABG Oxyhemoglobin ABG Chloride ABG Glucose Oxyhemoglobin Sodium Potassium Chloride Carbon Dioxide BUN Creatinine Glucose POC Glucose 150 H 134 H Lactic Acid Calcium Phosphorus Magnesium AST ALT Lactate Dehydrogenase Total Bilirubin Direct Bilirubin CK-MB (CK-2) C-Reactive Protein NT-Pro-B Natriuret Pep Total Protein Albumin Arterial Blood Glucose Urine WBC (Auto) Urine Creatinine 12/16/19 12/16/19 12/16/19 05:46 05:46 11:44 WBC RBC Hgb Hct MCHC RDW MCV MCH Lymph % (Auto) [place] % (Auto) [place] # Eos # Lymph # (Auto) [place] # (Auto) Eos # (Auto) Seg Neutrophils % Seg Neuts % (Manual) Baso # (Auto) Lymphocytes % (Manual) Monocytes % (Manual) Eosinophils % (Manual) Basophils % (Manual) Seg Neutrophils # Seg Neutrophils # Man Lymphocytes # (Manual) Monocytes # (Manual) Eosinophils # (Manual) Nucleated RBC % Basophils # (Manual) PT INR APTT Heparin Anti-Xa Level 0.20 L ABG pH POC ABG pO2 ABG pO2 ABG HCO3 ABG O2 Saturation ABG Base Excess POC ABG pCO2 ABG Hemoglobin ABG Oxyhemoglobin ABG Chloride ABG Glucose Oxyhemoglobin Sodium Potassium Chloride Carbon Dioxide 31 H BUN Creatinine 0.5 L Glucose 147 H POC Glucose 164 H Lactic Acid Calcium Phosphorus Magnesium AST ALT Lactate Dehydrogenase Total Bilirubin Direct Bilirubin CK-MB (CK-2) C-Reactive Protein NT-Pro-B Natriuret Pep Total Protein Albumin Arterial Blood Glucose Urine WBC (Auto) Urine Creatinine 12/16/19 12/16/19 12/17/19 17:17 23:49 05:30 WBC 13.9 H RBC 3.27 L Hgb 9.4 L Hct 29.2 L MCHC RDW 16.0 H MCV MCH Lymph % (Auto) [place] % (Auto) 8.8 H [place] # Eos # Lymph # (Auto) [place] # (Auto) 1.2 H Eos # (Auto) 0.5 H Seg Neutrophils % 70.5 H Seg Neuts % (Manual) Baso # (Auto) 0.2 H Lymphocytes % (Manual) Monocytes % (Manual) Eosinophils % (Manual) Basophils % (Manual) Seg Neutrophils # 9.8 H Seg Neutrophils # Man Lymphocytes # (Manual) Monocytes # (Manual) Eosinophils # (Manual) Nucleated RBC % Basophils # (Manual) PT INR APTT Heparin Anti-Xa Level ABG pH POC ABG pO2 ABG pO2 ABG HCO3 ABG O2 Saturation ABG Base Excess POC ABG pCO2 ABG Hemoglobin ABG Oxyhemoglobin ABG Chloride ABG Glucose Oxyhemoglobin Sodium Potassium Chloride Carbon Dioxide BUN Creatinine Glucose POC Glucose 162 H 144 H Lactic Acid Calcium Phosphorus Magnesium AST ALT Lactate Dehydrogenase Total Bilirubin Direct Bilirubin CK-MB (CK-2) C-Reactive Protein NT-Pro-B Natriuret Pep Total Protein Albumin Arterial Blood Glucose Urine WBC (Auto) Urine Creatinine 12/17/19 12/17/19 12/17/19 05:30 06:06 11:50 WBC RBC Hgb Hct MCHC RDW MCV MCH Lymph % (Auto) [place] % (Auto) [place] # Eos # Lymph # (Auto) [place] # (Auto) Eos # (Auto) Seg Neutrophils % Seg Neuts % (Manual) Baso # (Auto) Lymphocytes % (Manual) Monocytes % (Manual) Eosinophils % (Manual) Basophils % (Manual) Seg Neutrophils # Seg Neutrophils # Man Lymphocytes # (Manual) Monocytes # (Manual) Eosinophils # (Manual) Nucleated RBC % Basophils # (Manual) PT INR APTT Heparin Anti-Xa Level ABG pH POC ABG pO2 ABG pO2 ABG HCO3 ABG O2 Saturation ABG Base Excess POC ABG pCO2 ABG Hemoglobin ABG Oxyhemoglobin ABG Chloride ABG Glucose Oxyhemoglobin Sodium Potassium Chloride 97.4 L Carbon Dioxide 32 H BUN Creatinine 0.5 L Glucose 135 H POC Glucose 151 H 140 H Lactic Acid Calcium Phosphorus Magnesium AST ALT Lactate Dehydrogenase Total Bilirubin Direct Bilirubin CK-MB (CK-2) C-Reactive Protein NT-Pro-B Natriuret Pep Total Protein Albumin Arterial Blood Glucose Urine WBC (Auto) Urine Creatinine 12/17/19 12/17/19 12/18/19 17:50 23:46 05:17 WBC RBC Hgb 8.8 L Hct 28.0 L MCHC RDW MCV MCH Lymph % (Auto) [place] % (Auto) [place] # Eos # Lymph # (Auto) [place] # (Auto) Eos # (Auto) Seg Neutrophils % Seg Neuts % (Manual) Baso # (Auto) Lymphocytes % (Manual) Monocytes % (Manual) Eosinophils % (Manual) Basophils % (Manual) Seg Neutrophils # Seg Neutrophils # Man Lymphocytes # (Manual) Monocytes # (Manual) Eosinophils # (Manual) Nucleated RBC % Basophils # (Manual) PT INR APTT Heparin Anti-Xa Level ABG pH POC ABG pO2 ABG pO2 ABG HCO3 ABG O2 Saturation ABG Base Excess POC ABG pCO2 ABG Hemoglobin ABG Oxyhemoglobin ABG Chloride ABG Glucose Oxyhemoglobin Sodium Potassium Chloride Carbon Dioxide BUN Creatinine Glucose POC Glucose 158 H 150 H Lactic Acid Calcium Phosphorus Magnesium AST ALT Lactate Dehydrogenase Total Bilirubin Direct Bilirubin CK-MB (CK-2) C-Reactive Protein NT-Pro-B Natriuret Pep Total Protein Albumin Arterial Blood Glucose Urine WBC (Auto) Urine Creatinine 12/18/19 12/18/19 12/18/19 05:17 05:49 11:12 WBC RBC Hgb Hct MCHC RDW MCV MCH Lymph % (Auto) [place] % (Auto) [place] # Eos # Lymph # (Auto) [place] # (Auto) Eos # (Auto) Seg Neutrophils % Seg Neuts % (Manual) Baso # (Auto) Lymphocytes % (Manual) Monocytes % (Manual) Eosinophils % (Manual) Basophils % (Manual) Seg Neutrophils # Seg Neutrophils # Man Lymphocytes # (Manual) Monocytes # (Manual) Eosinophils # (Manual) Nucleated RBC % Basophils # (Manual) PT INR APTT Heparin Anti-Xa Level 0.16 L ABG pH POC ABG pO2 ABG pO2 ABG HCO3 ABG O2 Saturation ABG Base Excess POC ABG pCO2 ABG Hemoglobin ABG Oxyhemoglobin ABG Chloride ABG Glucose Oxyhemoglobin Sodium Potassium Chloride Carbon Dioxide BUN Creatinine Glucose POC Glucose 127 H 191 H Lactic Acid Calcium Phosphorus Magnesium AST ALT Lactate Dehydrogenase Total Bilirubin Direct Bilirubin CK-MB (CK-2) C-Reactive Protein NT-Pro-B Natriuret Pep Total Protein Albumin Arterial Blood Glucose Urine WBC (Auto) Urine Creatinine 12/18/19 12/18/19 12/19/19 17:03 20:16 00:08 WBC RBC Hgb Hct MCHC RDW MCV MCH Lymph % (Auto) [place] % (Auto) [place] # Eos # Lymph # (Auto) [place] # (Auto) Eos # (Auto) Seg Neutrophils % Seg Neuts % (Manual) Baso # (Auto) Lymphocytes % (Manual) Monocytes % (Manual) Eosinophils % (Manual) Basophils % (Manual) Seg Neutrophils # Seg Neutrophils # Man Lymphocytes # (Manual) Monocytes # (Manual) Eosinophils # (Manual) Nucleated RBC % Basophils # (Manual) PT INR APTT Heparin Anti-Xa Level ABG pH POC ABG pO2 ABG pO2 ABG HCO3 ABG O2 Saturation ABG Base Excess POC ABG pCO2 ABG Hemoglobin ABG Oxyhemoglobin ABG Chloride ABG Glucose Oxyhemoglobin Sodium Potassium Chloride Carbon Dioxide BUN Creatinine Glucose POC Glucose 133 H 128 H 129 H Lactic Acid Calcium Phosphorus Magnesium AST ALT Lactate Dehydrogenase Total Bilirubin Direct Bilirubin CK-MB (CK-2) C-Reactive Protein NT-Pro-B Natriuret Pep Total Protein Albumin Arterial Blood Glucose Urine WBC (Auto) Urine Creatinine 12/19/19 12/19/19 12/19/19 04:45 04:45 05:35 WBC RBC Hgb Hct MCHC RDW MCV MCH Lymph % (Auto) [place] % (Auto) [place] # Eos # Lymph # (Auto) [place] # (Auto) Eos # (Auto) Seg Neutrophils % Seg Neuts % (Manual) Baso # (Auto) Lymphocytes % (Manual) Monocytes % (Manual) Eosinophils % (Manual) Basophils % (Manual) Seg Neutrophils # Seg Neutrophils # Man Lymphocytes # (Manual) Monocytes # (Manual) Eosinophils # (Manual) Nucleated RBC % Basophils # (Manual) PT INR APTT Heparin Anti-Xa Level 0.17 L ABG pH POC ABG pO2 ABG pO2 ABG HCO3 ABG O2 Saturation ABG Base Excess POC ABG pCO2 ABG Hemoglobin ABG Oxyhemoglobin ABG Chloride ABG Glucose Oxyhemoglobin Sodium Potassium Chloride Carbon Dioxide BUN Creatinine Glucose POC Glucose 120 H Lactic Acid Calcium Phosphorus Magnesium AST ALT Lactate Dehydrogenase 228 H Total Bilirubin Direct Bilirubin CK-MB (CK-2) C-Reactive Protein NT-Pro-B Natriuret Pep Total Protein Albumin Arterial Blood Glucose Urine WBC (Auto) Urine Creatinine 12/19/19 12/19/19 12/19/19 09:20 11:32 11:32 WBC 14.6 H RBC 3.08 L Hgb 9.0 L Hct 26.8 L MCHC RDW 15.9 H MCV MCH Lymph % (Auto) [place] % (Auto) [place] # Eos # Lymph # (Auto) [place] # (Auto) Eos # (Auto) Seg Neutrophils % Seg Neuts % (Manual) 82.0 H Baso # (Auto) Lymphocytes % (Manual) 10.0 L Monocytes % (Manual) Eosinophils % (Manual) Basophils % (Manual) Seg Neutrophils # Seg Neutrophils # Man 12.0 H Lymphocytes # (Manual) Monocytes # (Manual) 0.9 H Eosinophils # (Manual) Nucleated RBC % 1.0 H Basophils # (Manual) PT INR APTT Heparin Anti-Xa Level ABG pH 7.451 H POC ABG pO2 ABG pO2 62.6 L ABG HCO3 33.2 H ABG O2 Saturation 93.8 L ABG Base Excess 8.3 H POC ABG pCO2 ABG Hemoglobin 8.3 L ABG Oxyhemoglobin ABG Chloride ABG Glucose Oxyhemoglobin 91.9 L Sodium Potassium Chloride 95.0 L Carbon Dioxide 33 H BUN 22 H Creatinine 0.6 L Glucose 150 H POC Glucose Lactic Acid Calcium Phosphorus Magnesium AST ALT Lactate Dehydrogenase Total Bilirubin Direct Bilirubin CK-MB (CK-2) C-Reactive Protein NT-Pro-B Natriuret Pep Total Protein 6.2 L Albumin 2.4 L Arterial Blood Glucose Urine WBC (Auto) Urine Creatinine 12/19/19 12/19/19 12/20/19 11:56 18:17 00:09 WBC RBC Hgb Hct MCHC RDW MCV MCH Lymph % (Auto) [place] % (Auto) [place] # Eos # Lymph # (Auto) [place] # (Auto) Eos # (Auto) Seg Neutrophils % Seg Neuts % (Manual) Baso # (Auto) Lymphocytes % (Manual) Monocytes % (Manual) Eosinophils % (Manual) Basophils % (Manual) Seg Neutrophils # Seg Neutrophils # Man Lymphocytes # (Manual) Monocytes # (Manual) Eosinophils # (Manual) Nucleated RBC % Basophils # (Manual) PT INR APTT Heparin Anti-Xa Level ABG pH POC ABG pO2 ABG pO2 ABG HCO3 ABG O2 Saturation ABG Base Excess POC ABG pCO2 ABG Hemoglobin ABG Oxyhemoglobin ABG Chloride ABG Glucose Oxyhemoglobin Sodium Potassium Chloride Carbon Dioxide BUN Creatinine Glucose POC Glucose 156 H 156 H 155 H Lactic Acid Calcium Phosphorus Magnesium AST ALT Lactate Dehydrogenase Total Bilirubin Direct Bilirubin CK-MB (CK-2) C-Reactive Protein NT-Pro-B Natriuret Pep Total Protein Albumin Arterial Blood Glucose Urine WBC (Auto) Urine Creatinine 12/20/19 12/20/19 12/20/19 05:26 06:02 18:17 WBC RBC Hgb Hct MCHC RDW MCV MCH Lymph % (Auto) [place] % (Auto) [place] # Eos # Lymph # (Auto) [place] # (Auto) Eos # (Auto) Seg Neutrophils % Seg Neuts % (Manual) Baso # (Auto) Lymphocytes % (Manual) Monocytes % (Manual) Eosinophils % (Manual) Basophils % (Manual) Seg Neutrophils # Seg Neutrophils # Man Lymphocytes # (Manual) Monocytes # (Manual) Eosinophils # (Manual) Nucleated RBC % Basophils # (Manual) PT INR APTT Heparin Anti-Xa Level 0.19 L ABG pH POC ABG pO2 ABG pO2 ABG HCO3 ABG O2 Saturation ABG Base Excess POC ABG pCO2 ABG Hemoglobin ABG Oxyhemoglobin ABG Chloride ABG Glucose Oxyhemoglobin Sodium Potassium Chloride Carbon Dioxide BUN Creatinine Glucose POC Glucose 137 H 128 H Lactic Acid Calcium Phosphorus Magnesium AST ALT Lactate Dehydrogenase Total Bilirubin Direct Bilirubin CK-MB (CK-2) C-Reactive Protein NT-Pro-B Natriuret Pep Total Protein Albumin Arterial Blood Glucose Urine WBC (Auto) Urine Creatinine 12/20/19 12/21/19 12/21/19 23:34 05:31 05:31 WBC 12.7 H RBC 3.09 L Hgb 8.9 L Hct 27.4 L MCHC RDW 15.8 H MCV MCH Lymph % (Auto) 12.1 L [place] % (Auto) 7.8 H [place] # Eos # Lymph # (Auto) [place] # (Auto) 1.0 H Eos # (Auto) Seg Neutrophils % 77.1 H Seg Neuts % (Manual) Baso # (Auto) Lymphocytes % (Manual) Monocytes % (Manual) Eosinophils % (Manual) Basophils % (Manual) Seg Neutrophils # 9.8 H Seg Neutrophils # Man Lymphocytes # (Manual) Monocytes # (Manual) Eosinophils # (Manual) Nucleated RBC % Basophils # (Manual) PT INR APTT Heparin Anti-Xa Level ABG pH POC ABG pO2 ABG pO2 ABG HCO3 ABG O2 Saturation ABG Base Excess POC ABG pCO2 ABG Hemoglobin ABG Oxyhemoglobin ABG Chloride ABG Glucose Oxyhemoglobin Sodium Potassium Chloride 96.9 L Carbon Dioxide 37 H BUN 27 H Creatinine 0.7 L Glucose 140 H POC Glucose 145 H Lactic Acid Calcium Phosphorus Magnesium AST ALT Lactate Dehydrogenase Total Bilirubin Direct Bilirubin CK-MB (CK-2) C-Reactive Protein NT-Pro-B Natriuret Pep Total Protein Albumin Arterial Blood Glucose Urine WBC (Auto) Urine Creatinine 12/21/19 12/21/19 12/21/19 05:38 10:13 11:51 WBC RBC Hgb Hct MCHC RDW MCV MCH Lymph % (Auto) [place] % (Auto) [place] # Eos # Lymph # (Auto) [place] # (Auto) Eos # (Auto) Seg Neutrophils % Seg Neuts % (Manual) Baso # (Auto) Lymphocytes % (Manual) Monocytes % (Manual) Eosinophils % (Manual) Basophils % (Manual) Seg Neutrophils # Seg Neutrophils # Man Lymphocytes # (Manual) Monocytes # (Manual) Eosinophils # (Manual) Nucleated RBC % Basophils # (Manual) PT INR APTT 23.9 L Heparin Anti-Xa Level < 0.10 L ABG pH POC ABG pO2 ABG pO2 ABG HCO3 ABG O2 Saturation ABG Base Excess POC ABG pCO2 ABG Hemoglobin ABG Oxyhemoglobin ABG Chloride ABG Glucose Oxyhemoglobin Sodium Potassium Chloride Carbon Dioxide BUN Creatinine Glucose POC Glucose 151 H 145 H Lactic Acid Calcium Phosphorus Magnesium AST ALT Lactate Dehydrogenase Total Bilirubin Direct Bilirubin CK-MB (CK-2) C-Reactive Protein NT-Pro-B Natriuret Pep Total Protein Albumin Arterial Blood Glucose Urine WBC (Auto) Urine Creatinine 12/21/19 12/22/19 12/22/19 17:16 00:01 01:33 WBC RBC Hgb Hct MCHC RDW MCV MCH Lymph % (Auto) [place] % (Auto) [place] # Eos # Lymph # (Auto) [place] # (Auto) Eos # (Auto) Seg Neutrophils % Seg Neuts % (Manual) Baso # (Auto) Lymphocytes % (Manual) Monocytes % (Manual) Eosinophils % (Manual) Basophils % (Manual) Seg Neutrophils # Seg Neutrophils # Man Lymphocytes # (Manual) Monocytes # (Manual) Eosinophils # (Manual) Nucleated RBC % Basophils # (Manual) PT INR APTT Heparin Anti-Xa Level 0.10 L ABG pH POC ABG pO2 ABG pO2 ABG HCO3 ABG O2 Saturation ABG Base Excess POC ABG pCO2 ABG Hemoglobin ABG Oxyhemoglobin ABG Chloride ABG Glucose Oxyhemoglobin Sodium Potassium Chloride Carbon Dioxide BUN Creatinine Glucose POC Glucose 167 H 179 H Lactic Acid Calcium Phosphorus Magnesium AST ALT Lactate Dehydrogenase Total Bilirubin Direct Bilirubin CK-MB (CK-2) C-Reactive Protein NT-Pro-B Natriuret Pep Total Protein Albumin Arterial Blood Glucose Urine WBC (Auto) Urine Creatinine 12/22/19 12/22/19 12/22/19 03:22 05:10 05:10 WBC 13.8 H RBC 3.20 L Hgb 8.9 L Hct 28.1 L MCHC RDW 15.9 H MCV MCH Lymph % (Auto) [place] % (Auto) [place] # Eos # Lymph # (Auto) [place] # (Auto) Eos # (Auto) Seg Neutrophils % Seg Neuts % (Manual) Baso # (Auto) Lymphocytes % (Manual) Monocytes % (Manual) Eosinophils % (Manual) Basophils % (Manual) Seg Neutrophils # Seg Neutrophils # Man Lymphocytes # (Manual) Monocytes # (Manual) Eosinophils # (Manual) Nucleated RBC % Basophils # (Manual) PT INR APTT Heparin Anti-Xa Level ABG pH POC ABG pO2 52.3 L ABG pO2 ABG HCO3 ABG O2 Saturation ABG Base Excess POC ABG pCO2 52.9 H ABG Hemoglobin 10.7 L ABG Oxyhemoglobin 84 L ABG Chloride ABG Glucose Oxyhemoglobin Sodium Potassium Chloride 96.6 L Carbon Dioxide BUN 25 H Creatinine 0.7 L Glucose 129 H POC Glucose Lactic Acid Calcium Phosphorus Magnesium AST ALT Lactate Dehydrogenase Total Bilirubin Direct Bilirubin CK-MB (CK-2) C-Reactive Protein NT-Pro-B Natriuret Pep Total Protein Albumin Arterial Blood Glucose Urine WBC (Auto) Urine Creatinine 12/22/19 12/22/19 12/22/19 05:18 12:32 12:43 WBC RBC Hgb Hct MCHC RDW MCV MCH Lymph % (Auto) [place] % (Auto) [place] # Eos # Lymph # (Auto) [place] # (Auto) Eos # (Auto) Seg Neutrophils % Seg Neuts % (Manual) Baso # (Auto) Lymphocytes % (Manual) Monocytes % (Manual) Eosinophils % (Manual) Basophils % (Manual) Seg Neutrophils # Seg Neutrophils # Man Lymphocytes # (Manual) Monocytes # (Manual) Eosinophils # (Manual) Nucleated RBC % Basophils # (Manual) PT INR APTT Heparin Anti-Xa Level 0.18 L ABG pH POC ABG pO2 ABG pO2 ABG HCO3 ABG O2 Saturation ABG Base Excess POC ABG pCO2 ABG Hemoglobin ABG Oxyhemoglobin ABG Chloride ABG Glucose Oxyhemoglobin Sodium Potassium Chloride Carbon Dioxide BUN Creatinine Glucose POC Glucose 131 H 208 H Lactic Acid Calcium Phosphorus Magnesium AST ALT Lactate Dehydrogenase Total Bilirubin Direct Bilirubin CK-MB (CK-2) C-Reactive Protein NT-Pro-B Natriuret Pep Total Protein Albumin Arterial Blood Glucose Urine WBC (Auto) Urine Creatinine 12/22/19 12/22/19 12/23/19 17:44 23:20 03:51 WBC 15.2 H RBC 3.43 L Hgb 9.6 L Hct 30.3 L MCHC RDW 15.9 H MCV MCH Lymph % (Auto) [place] % (Auto) [place] # Eos # Lymph # (Auto) [place] # (Auto) Eos # (Auto) Seg Neutrophils % Seg Neuts % (Manual) Baso # (Auto) Lymphocytes % (Manual) Monocytes % (Manual) Eosinophils % (Manual) Basophils % (Manual) Seg Neutrophils # Seg Neutrophils # Man Lymphocytes # (Manual) Monocytes # (Manual) Eosinophils # (Manual) Nucleated RBC % Basophils # (Manual) PT INR APTT Heparin Anti-Xa Level ABG pH POC ABG pO2 ABG pO2 ABG HCO3 ABG O2 Saturation ABG Base Excess POC ABG pCO2 ABG Hemoglobin ABG Oxyhemoglobin ABG Chloride ABG Glucose Oxyhemoglobin Sodium Potassium Chloride Carbon Dioxide BUN Creatinine Glucose POC Glucose 209 H 119 H Lactic Acid Calcium Phosphorus Magnesium AST ALT Lactate Dehydrogenase Total Bilirubin Direct Bilirubin CK-MB (CK-2) C-Reactive Protein NT-Pro-B Natriuret Pep Total Protein Albumin Arterial Blood Glucose Urine WBC (Auto) Urine Creatinine 12/23/19 12/23/19 12/23/19 03:51 05:31 12:09 WBC RBC Hgb Hct MCHC RDW MCV MCH Lymph % (Auto) [place] % (Auto) [place] # Eos # Lymph # (Auto) [place] # (Auto) Eos # (Auto) Seg Neutrophils % Seg Neuts % (Manual) Baso # (Auto) Lymphocytes % (Manual) Monocytes % (Manual) Eosinophils % (Manual) Basophils % (Manual) Seg Neutrophils # Seg Neutrophils # Man Lymphocytes # (Manual) Monocytes # (Manual) Eosinophils # (Manual) Nucleated RBC % Basophils # (Manual) PT INR APTT Heparin Anti-Xa Level ABG pH POC ABG pO2 ABG pO2 ABG HCO3 ABG O2 Saturation ABG Base Excess POC ABG pCO2 ABG Hemoglobin ABG Oxyhemoglobin ABG Chloride ABG Glucose Oxyhemoglobin Sodium Potassium Chloride 97.2 L Carbon Dioxide 31 H BUN 23 H Creatinine 0.6 L Glucose 153 H POC Glucose 149 H 144 H Lactic Acid Calcium Phosphorus Magnesium AST ALT Lactate Dehydrogenase Total Bilirubin Direct Bilirubin CK-MB (CK-2) C-Reactive Protein NT-Pro-B Natriuret Pep Total Protein Albumin Arterial Blood Glucose Urine WBC (Auto) Urine Creatinine 12/23/19 12/23/19 12/23/19 15:30 17:49 23:31 WBC RBC Hgb Hct MCHC RDW MCV MCH Lymph % (Auto) [place] % (Auto) [place] # Eos # Lymph # (Auto) [place] # (Auto) Eos # (Auto) Seg Neutrophils % Seg Neuts % (Manual) Baso # (Auto) Lymphocytes % (Manual) Monocytes % (Manual) Eosinophils % (Manual) Basophils % (Manual) Seg Neutrophils # Seg Neutrophils # Man Lymphocytes # (Manual) Monocytes # (Manual) Eosinophils # (Manual) Nucleated RBC % Basophils # (Manual) PT INR APTT Heparin Anti-Xa Level 0.21 L ABG pH POC ABG pO2 ABG pO2 ABG HCO3 ABG O2 Saturation ABG Base Excess POC ABG pCO2 ABG Hemoglobin ABG Oxyhemoglobin ABG Chloride ABG Glucose Oxyhemoglobin Sodium Potassium Chloride Carbon Dioxide BUN Creatinine Glucose POC Glucose 192 H 151 H Lactic Acid Calcium Phosphorus Magnesium AST ALT Lactate Dehydrogenase Total Bilirubin Direct Bilirubin CK-MB (CK-2) C-Reactive Protein NT-Pro-B Natriuret Pep Total Protein Albumin Arterial Blood Glucose Urine WBC (Auto) Urine Creatinine 12/24/19 12/24/19 12/24/19 05:34 12:13 16:50 WBC RBC Hgb Hct MCHC RDW MCV MCH Lymph % (Auto) [place] % (Auto) [place] # Eos # Lymph # (Auto) [place] # (Auto) Eos # (Auto) Seg Neutrophils % Seg Neuts % (Manual) Baso # (Auto) Lymphocytes % (Manual) Monocytes % (Manual) Eosinophils % (Manual) Basophils % (Manual) Seg Neutrophils # Seg Neutrophils # Man Lymphocytes # (Manual) Monocytes # (Manual) Eosinophils # (Manual) Nucleated RBC % Basophils # (Manual) PT INR APTT Heparin Anti-Xa Level 0.16 L ABG pH POC ABG pO2 ABG pO2 ABG HCO3 ABG O2 Saturation ABG Base Excess POC ABG pCO2 ABG Hemoglobin ABG Oxyhemoglobin ABG Chloride ABG Glucose Oxyhemoglobin Sodium Potassium Chloride Carbon Dioxide BUN Creatinine Glucose POC Glucose 145 H 124 H Lactic Acid Calcium Phosphorus Magnesium AST ALT Lactate Dehydrogenase Total Bilirubin Direct Bilirubin CK-MB (CK-2) C-Reactive Protein NT-Pro-B Natriuret Pep Total Protein Albumin Arterial Blood Glucose Urine WBC (Auto) Urine Creatinine 12/24/19 12/25/19 12/25/19 17:53 00:14 04:18 WBC 12.9 H RBC 3.30 L Hgb 9.1 L Hct 28.8 L MCHC RDW 16.4 H MCV MCH Lymph % (Auto) [place] % (Auto) 7.8 H [place] # Eos # Lymph # (Auto) [place] # (Auto) 1.0 H Eos # (Auto) Seg Neutrophils % 75.5 H Seg Neuts % (Manual) Baso # (Auto) Lymphocytes % (Manual) Monocytes % (Manual) Eosinophils % (Manual) Basophils % (Manual) Seg Neutrophils # 9.7 H Seg Neutrophils # Man Lymphocytes # (Manual) Monocytes # (Manual) Eosinophils # (Manual) Nucleated RBC % Basophils # (Manual) PT INR APTT Heparin Anti-Xa Level ABG pH POC ABG pO2 ABG pO2 ABG HCO3 ABG O2 Saturation ABG Base Excess POC ABG pCO2 ABG Hemoglobin ABG Oxyhemoglobin ABG Chloride ABG Glucose Oxyhemoglobin Sodium Potassium Chloride Carbon Dioxide BUN Creatinine Glucose POC Glucose 164 H 148 H Lactic Acid Calcium Phosphorus Magnesium AST ALT Lactate Dehydrogenase Total Bilirubin Direct Bilirubin CK-MB (CK-2) C-Reactive Protein NT-Pro-B Natriuret Pep Total Protein Albumin Arterial Blood Glucose Urine WBC (Auto) Urine Creatinine 12/25/19 12/25/19 12/25/19 04:18 05:38 11:44 WBC RBC Hgb Hct MCHC RDW MCV MCH Lymph % (Auto) [place] % (Auto) [place] # Eos # Lymph # (Auto) [place] # (Auto) Eos # (Auto) Seg Neutrophils % Seg Neuts % (Manual) Baso # (Auto) Lymphocytes % (Manual) Monocytes % (Manual) Eosinophils % (Manual) Basophils % (Manual) Seg Neutrophils # Seg Neutrophils # Man Lymphocytes # (Manual) Monocytes # (Manual) Eosinophils # (Manual) Nucleated RBC % Basophils # (Manual) PT INR APTT Heparin Anti-Xa Level ABG pH POC ABG pO2 ABG pO2 ABG HCO3 ABG O2 Saturation ABG Base Excess POC ABG pCO2 ABG Hemoglobin ABG Oxyhemoglobin ABG Chloride ABG Glucose Oxyhemoglobin Sodium Potassium Chloride Carbon Dioxide 33 H BUN 27 H Creatinine 0.6 L Glucose 132 H POC Glucose 152 H 166 H Lactic Acid Calcium Phosphorus Magnesium AST ALT Lactate Dehydrogenase Total Bilirubin Direct Bilirubin CK-MB (CK-2) C-Reactive Protein NT-Pro-B Natriuret Pep Total Protein Albumin Arterial Blood Glucose Urine WBC (Auto) Urine Creatinine 12/25/19 12/26/19 12/26/19 18:29 00:17 00:18 WBC RBC Hgb Hct MCHC RDW MCV MCH Lymph % (Auto) [place] % (Auto) [place] # Eos # Lymph # (Auto) [place] # (Auto) Eos # (Auto) Seg Neutrophils % Seg Neuts % (Manual) Baso # (Auto) Lymphocytes % (Manual) Monocytes % (Manual) Eosinophils % (Manual) Basophils % (Manual) Seg Neutrophils # Seg Neutrophils # Man Lymphocytes # (Manual) Monocytes # (Manual) Eosinophils # (Manual) Nucleated RBC % Basophils # (Manual) PT INR APTT Heparin Anti-Xa Level ABG pH POC ABG pO2 ABG pO2 ABG HCO3 ABG O2 Saturation ABG Base Excess POC ABG pCO2 ABG Hemoglobin ABG Oxyhemoglobin ABG Chloride ABG Glucose Oxyhemoglobin Sodium Potassium Chloride 97.8 L Carbon Dioxide BUN 25 H Creatinine 0.6 L Glucose 140 H POC Glucose 194 H 151 H Lactic Acid Calcium Phosphorus Magnesium AST ALT Lactate Dehydrogenase Total Bilirubin Direct Bilirubin CK-MB (CK-2) C-Reactive Protein NT-Pro-B Natriuret Pep Total Protein Albumin Arterial Blood Glucose Urine WBC (Auto) Urine Creatinine 12/26/19 12/26/19 12/26/19 05:36 11:41 17:50 WBC RBC Hgb Hct MCHC RDW MCV MCH Lymph % (Auto) [place] % (Auto) [place] # Eos # Lymph # (Auto) [place] # (Auto) Eos # (Auto) Seg Neutrophils % Seg Neuts % (Manual) Baso # (Auto) Lymphocytes % (Manual) Monocytes % (Manual) Eosinophils % (Manual) Basophils % (Manual) Seg Neutrophils # Seg Neutrophils # Man Lymphocytes # (Manual) Monocytes # (Manual) Eosinophils # (Manual) Nucleated RBC % Basophils # (Manual) PT INR APTT Heparin Anti-Xa Level ABG pH POC ABG pO2 ABG pO2 ABG HCO3 ABG O2 Saturation ABG Base Excess POC ABG pCO2 ABG Hemoglobin ABG Oxyhemoglobin ABG Chloride ABG Glucose Oxyhemoglobin Sodium Potassium Chloride Carbon Dioxide BUN Creatinine Glucose POC Glucose 156 H 148 H 139 H Lactic Acid Calcium Phosphorus Magnesium AST ALT Lactate Dehydrogenase Total Bilirubin Direct Bilirubin CK-MB (CK-2) C-Reactive Protein NT-Pro-B Natriuret Pep Total Protein Albumin Arterial Blood Glucose Urine WBC (Auto) Urine Creatinine 12/26/19 12/27/19 12/27/19 23:19 05:34 12:02 WBC RBC Hgb Hct MCHC RDW MCV MCH Lymph % (Auto) [place] % (Auto) [place] # Eos # Lymph # (Auto) [place] # (Auto) Eos # (Auto) Seg Neutrophils % Seg Neuts % (Manual) Baso # (Auto) Lymphocytes % (Manual) Monocytes % (Manual) Eosinophils % (Manual) Basophils % (Manual) Seg Neutrophils # Seg Neutrophils # Man Lymphocytes # (Manual) Monocytes # (Manual) Eosinophils # (Manual) Nucleated RBC % Basophils # (Manual) PT INR APTT Heparin Anti-Xa Level ABG pH POC ABG pO2 ABG pO2 ABG HCO3 ABG O2 Saturation ABG Base Excess POC ABG pCO2 ABG Hemoglobin ABG Oxyhemoglobin ABG Chloride ABG Glucose Oxyhemoglobin Sodium Potassium Chloride Carbon Dioxide BUN Creatinine Glucose POC Glucose 161 H 145 H 157 H Lactic Acid Calcium Phosphorus Magnesium AST ALT Lactate Dehydrogenase Total Bilirubin Direct Bilirubin CK-MB (CK-2) C-Reactive Protein NT-Pro-B Natriuret Pep Total Protein Albumin Arterial Blood Glucose Urine WBC (Auto) Urine Creatinine 12/27/19 12/27/19 12/27/19 17:35 20:11 23:00 WBC RBC Hgb Hct MCHC RDW MCV MCH Lymph % (Auto) [place] % (Auto) [place] # Eos # Lymph # (Auto) [place] # (Auto) Eos # (Auto) Seg Neutrophils % Seg Neuts % (Manual) Baso # (Auto) Lymphocytes % (Manual) Monocytes % (Manual) Eosinophils % (Manual) Basophils % (Manual) Seg Neutrophils # Seg Neutrophils # Man Lymphocytes # (Manual) Monocytes # (Manual) Eosinophils # (Manual) Nucleated RBC % Basophils # (Manual) PT INR APTT Heparin Anti-Xa Level 0.19 L ABG pH POC ABG pO2 ABG pO2 ABG HCO3 ABG O2 Saturation ABG Base Excess POC ABG pCO2 ABG Hemoglobin ABG Oxyhemoglobin ABG Chloride ABG Glucose Oxyhemoglobin Sodium Potassium Chloride Carbon Dioxide BUN Creatinine Glucose POC Glucose 158 H 155 H Lactic Acid Calcium Phosphorus Magnesium AST ALT Lactate Dehydrogenase Total Bilirubin Direct Bilirubin CK-MB (CK-2) C-Reactive Protein NT-Pro-B Natriuret Pep Total Protein Albumin Arterial Blood Glucose Urine WBC (Auto) Urine Creatinine 12/27/19 12/28/19 12/28/19 23:45 02:41 02:41 WBC 13.0 H RBC 3.48 L Hgb 9.5 L Hct 30.6 L MCHC 31 L RDW 16.6 H MCV MCH 27 L Lymph % (Auto) 13.0 L [place] % (Auto) 8.0 H [place] # Eos # Lymph # (Auto) [place] # (Auto) 1.0 H Eos # (Auto) Seg Neutrophils % 76.3 H Seg Neuts % (Manual) Baso # (Auto) Lymphocytes % (Manual) Monocytes % (Manual) Eosinophils % (Manual) Basophils % (Manual) Seg Neutrophils # 9.9 H Seg Neutrophils # Man Lymphocytes # (Manual) Monocytes # (Manual) Eosinophils # (Manual) Nucleated RBC % Basophils # (Manual) PT INR APTT Heparin Anti-Xa Level ABG pH POC ABG pO2 ABG pO2 ABG HCO3 ABG O2 Saturation ABG Base Excess POC ABG pCO2 ABG Hemoglobin ABG Oxyhemoglobin ABG Chloride ABG Glucose Oxyhemoglobin Sodium Potassium Chloride Carbon Dioxide BUN 22 H Creatinine 0.6 L Glucose 101 H POC Glucose 130 H Lactic Acid Calcium Phosphorus Magnesium AST ALT Lactate Dehydrogenase Total Bilirubin Direct Bilirubin CK-MB (CK-2) C-Reactive Protein NT-Pro-B Natriuret Pep Total Protein Albumin Arterial Blood Glucose Urine WBC (Auto) Urine Creatinine 12/28/19 12/28/19 12/28/19 06:00 12:34 18:13 WBC RBC Hgb Hct MCHC RDW MCV MCH Lymph % (Auto) [place] % (Auto) [place] # Eos # Lymph # (Auto) [place] # (Auto) Eos # (Auto) Seg Neutrophils % Seg Neuts % (Manual) Baso # (Auto) Lymphocytes % (Manual) Monocytes % (Manual) Eosinophils % (Manual) Basophils % (Manual) Seg Neutrophils # Seg Neutrophils # Man Lymphocytes # (Manual) Monocytes # (Manual) Eosinophils # (Manual) Nucleated RBC % Basophils # (Manual) PT INR APTT Heparin Anti-Xa Level ABG pH POC ABG pO2 ABG pO2 ABG HCO3 ABG O2 Saturation ABG Base Excess POC ABG pCO2 ABG Hemoglobin ABG Oxyhemoglobin ABG Chloride ABG Glucose Oxyhemoglobin Sodium Potassium Chloride Carbon Dioxide BUN Creatinine Glucose POC Glucose 150 H 161 H 128 H Lactic Acid Calcium Phosphorus Magnesium AST ALT Lactate Dehydrogenase Total Bilirubin Direct Bilirubin CK-MB (CK-2) C-Reactive Protein NT-Pro-B Natriuret Pep Total Protein Albumin Arterial Blood Glucose Urine WBC (Auto) Urine Creatinine 12/28/19 12/29/19 12/29/19 23:36 05:21 11:40 WBC RBC Hgb Hct MCHC RDW MCV MCH Lymph % (Auto) [place] % (Auto) [place] # Eos # Lymph # (Auto) [place] # (Auto) Eos # (Auto) Seg Neutrophils % Seg Neuts % (Manual) Baso # (Auto) Lymphocytes % (Manual) Monocytes % (Manual) Eosinophils % (Manual) Basophils % (Manual) Seg Neutrophils # Seg Neutrophils # Man Lymphocytes # (Manual) Monocytes # (Manual) Eosinophils # (Manual) Nucleated RBC % Basophils # (Manual) PT INR APTT Heparin Anti-Xa Level ABG pH POC ABG pO2 ABG pO2 ABG HCO3 ABG O2 Saturation ABG Base Excess POC ABG pCO2 ABG Hemoglobin ABG Oxyhemoglobin ABG Chloride ABG Glucose Oxyhemoglobin Sodium Potassium Chloride Carbon Dioxide BUN Creatinine Glucose POC Glucose 137 H 136 H 166 H Lactic Acid Calcium Phosphorus Magnesium AST ALT Lactate Dehydrogenase Total Bilirubin Direct Bilirubin CK-MB (CK-2) C-Reactive Protein NT-Pro-B Natriuret Pep Total Protein Albumin Arterial Blood Glucose Urine WBC (Auto) Urine Creatinine 12/29/19 12/29/19 12/29/19 17:23 19:21 23:38 WBC RBC Hgb Hct MCHC RDW MCV MCH Lymph % (Auto) [place] % (Auto) [place] # Eos # Lymph # (Auto) [place] # (Auto) Eos # (Auto) Seg Neutrophils % Seg Neuts % (Manual) Baso # (Auto) Lymphocytes % (Manual) Monocytes % (Manual) Eosinophils % (Manual) Basophils % (Manual) Seg Neutrophils # Seg Neutrophils # Man Lymphocytes # (Manual) Monocytes # (Manual) Eosinophils # (Manual) Nucleated RBC % Basophils # (Manual) PT INR APTT Heparin Anti-Xa Level 0.20 L ABG pH POC ABG pO2 ABG pO2 ABG HCO3 ABG O2 Saturation ABG Base Excess POC ABG pCO2 ABG Hemoglobin ABG Oxyhemoglobin ABG Chloride ABG Glucose Oxyhemoglobin Sodium Potassium Chloride Carbon Dioxide BUN Creatinine Glucose POC Glucose 144 H 141 H Lactic Acid Calcium Phosphorus Magnesium AST ALT Lactate Dehydrogenase Total Bilirubin Direct Bilirubin CK-MB (CK-2) C-Reactive Protein NT-Pro-B Natriuret Pep Total Protein Albumin Arterial Blood Glucose Urine WBC (Auto) Urine Creatinine 12/30/19 12/30/19 12/30/19 03:58 03:58 04:59 WBC RBC 3.54 L Hgb 9.8 L Hct 30.7 L MCHC RDW 16.8 H MCV MCH Lymph % (Auto) [place] % (Auto) [place] # Eos # Lymph # (Auto) [place] # (Auto) Eos # (Auto) Seg Neutrophils % Seg Neuts % (Manual) Baso # (Auto) Lymphocytes % (Manual) Monocytes % (Manual) Eosinophils % (Manual) Basophils % (Manual) Seg Neutrophils # Seg Neutrophils # Man Lymphocytes # (Manual) Monocytes # (Manual) Eosinophils # (Manual) Nucleated RBC % Basophils # (Manual) PT INR APTT Heparin Anti-Xa Level ABG pH POC ABG pO2 ABG pO2 ABG HCO3 29.8 H ABG O2 Saturation ABG Base Excess 4.8 H POC ABG pCO2 ABG Hemoglobin 11.2 L ABG Oxyhemoglobin ABG Chloride ABG Glucose Oxyhemoglobin 93.8 L Sodium Potassium Chloride 97.8 L Carbon Dioxide BUN 26 H Creatinine Glucose 168 H POC Glucose Lactic Acid Calcium Phosphorus Magnesium AST ALT Lactate Dehydrogenase Total Bilirubin Direct Bilirubin CK-MB (CK-2) C-Reactive Protein NT-Pro-B Natriuret Pep Total Protein Albumin Arterial Blood Glucose Urine WBC (Auto) Urine Creatinine 12/30/19 12/30/19 12/30/19 05:45 11:34 17:28 WBC RBC Hgb Hct MCHC RDW MCV MCH Lymph % (Auto) [place] % (Auto) [place] # Eos # Lymph # (Auto) [place] # (Auto) Eos # (Auto) Seg Neutrophils % Seg Neuts % (Manual) Baso # (Auto) Lymphocytes % (Manual) Monocytes % (Manual) Eosinophils % (Manual) Basophils % (Manual) Seg Neutrophils # Seg Neutrophils # Man Lymphocytes # (Manual) Monocytes # (Manual) Eosinophils # (Manual) Nucleated RBC % Basophils # (Manual) PT INR APTT Heparin Anti-Xa Level ABG pH POC ABG pO2 ABG pO2 ABG HCO3 ABG O2 Saturation ABG Base Excess POC ABG pCO2 ABG Hemoglobin ABG Oxyhemoglobin ABG Chloride ABG Glucose Oxyhemoglobin Sodium Potassium Chloride Carbon Dioxide BUN Creatinine Glucose POC Glucose 163 H 180 H 150 H Lactic Acid Calcium Phosphorus Magnesium AST ALT Lactate Dehydrogenase Total Bilirubin Direct Bilirubin CK-MB (CK-2) C-Reactive Protein NT-Pro-B Natriuret Pep Total Protein Albumin Arterial Blood Glucose Urine WBC (Auto) Urine Creatinine 12/30/19 12/31/19 12/31/19 23:43 04:55 05:07 WBC RBC Hgb Hct MCHC RDW MCV MCH Lymph % (Auto) [place] % (Auto) [place] # Eos # Lymph # (Auto) [place] # (Auto) Eos # (Auto) Seg Neutrophils % Seg Neuts % (Manual) Baso # (Auto) Lymphocytes % (Manual) Monocytes % (Manual) Eosinophils % (Manual) Basophils % (Manual) Seg Neutrophils # Seg Neutrophils # Man Lymphocytes # (Manual) Monocytes # (Manual) Eosinophils # (Manual) Nucleated RBC % Basophils # (Manual) PT INR APTT Heparin Anti-Xa Level ABG pH POC ABG pO2 ABG pO2 ABG HCO3 ABG O2 Saturation ABG Base Excess POC ABG pCO2 ABG Hemoglobin ABG Oxyhemoglobin ABG Chloride ABG Glucose Oxyhemoglobin Sodium Potassium 5.6 H D Chloride Carbon Dioxide BUN 33 H Creatinine Glucose 131 H POC Glucose 142 H 134 H Lactic Acid Calcium Phosphorus Magnesium AST ALT Lactate Dehydrogenase Total Bilirubin Direct Bilirubin CK-MB (CK-2) C-Reactive Protein NT-Pro-B Natriuret Pep Total Protein Albumin Arterial Blood Glucose Urine WBC (Auto) Urine Creatinine 10/11/1112/31/19 12/31/19 11:30 17:19 17:36 WBC RBC Hgb Hct MCHC RDW MCV MCH Lymph % (Auto) [place] % (Auto) [place] # Eos # Lymph # (Auto) [place] # (Auto) Eos # (Auto) Seg Neutrophils % Seg Neuts % (Manual) Baso # (Auto) Lymphocytes % (Manual) Monocytes % (Manual) Eosinophils % (Manual) Basophils % (Manual) Seg Neutrophils # Seg Neutrophils # Man Lymphocytes # (Manual) Monocytes # (Manual) Eosinophils # (Manual) Nucleated RBC % Basophils # (Manual) PT INR APTT Heparin Anti-Xa Level ABG pH POC ABG pO2 ABG pO2 ABG HCO3 ABG O2 Saturation ABG Base Excess POC ABG pCO2 ABG Hemoglobin ABG Oxyhemoglobin ABG Chloride ABG Glucose Oxyhemoglobin Sodium Potassium Chloride Carbon Dioxide BUN 35 H Creatinine Glucose 156 H POC Glucose 158 H 181 H Lactic Acid Calcium Phosphorus Magnesium AST ALT Lactate Dehydrogenase Total Bilirubin Direct Bilirubin CK-MB (CK-2) C-Reactive Protein NT-Pro-B Natriuret Pep Total Protein Albumin Arterial Blood Glucose Urine WBC (Auto) Urine Creatinine 12/31/19 12/31/19 12/31/19 18:16 19:41 21:53 WBC RBC Hgb Hct MCHC RDW MCV MCH Lymph % (Auto) [place] % (Auto) [place] # Eos # Lymph # (Auto) [place] # (Auto) Eos # (Auto) Seg Neutrophils % Seg Neuts % (Manual) Baso # (Auto) Lymphocytes % (Manual) Monocytes % (Manual) Eosinophils % (Manual) Basophils % (Manual) Seg Neutrophils # Seg Neutrophils # Man Lymphocytes # (Manual) Monocytes # (Manual) Eosinophils # (Manual) Nucleated RBC % Basophils # (Manual) PT INR APTT Heparin Anti-Xa Level 0.20 L ABG pH POC ABG pO2 ABG pO2 ABG HCO3 ABG O2 Saturation ABG Base Excess POC ABG pCO2 ABG Hemoglobin ABG Oxyhemoglobin ABG Chloride ABG Glucose Oxyhemoglobin Sodium Potassium Chloride Carbon Dioxide BUN 34 H Creatinine Glucose 169 H POC Glucose 141 H Lactic Acid Calcium Phosphorus Magnesium AST ALT Lactate Dehydrogenase Total Bilirubin Direct Bilirubin CK-MB (CK-2) C-Reactive Protein NT-Pro-B Natriuret Pep Total Protein Albumin Arterial Blood Glucose Urine WBC (Auto) Urine Creatinine 12/31/19 01/01/20 01/01/20 23:51 05:17 10:40 WBC RBC Hgb Hct MCHC RDW MCV MCH Lymph % (Auto) [place] % (Auto) [place] # Eos # Lymph # (Auto) [place] # (Auto) Eos # (Auto) Seg Neutrophils % Seg Neuts % (Manual) Baso # (Auto) Lymphocytes % (Manual) Monocytes % (Manual) Eosinophils % (Manual) Basophils % (Manual) Seg Neutrophils # Seg Neutrophils # Man Lymphocytes # (Manual) Monocytes # (Manual) Eosinophils # (Manual) Nucleated RBC % Basophils # (Manual) PT INR APTT Heparin Anti-Xa Level ABG pH POC ABG pO2 ABG pO2 ABG HCO3 ABG O2 Saturation ABG Base Excess POC ABG pCO2 ABG Hemoglobin ABG Oxyhemoglobin ABG Chloride ABG Glucose Oxyhemoglobin Sodium Potassium Chloride Carbon Dioxide BUN 31 H Creatinine 0.7 L Glucose 137 H POC Glucose 131 H 155 H Lactic Acid Calcium Phosphorus Magnesium AST 73 H ALT 97 H Lactate Dehydrogenase Total Bilirubin Direct Bilirubin CK-MB (CK-2) C-Reactive Protein NT-Pro-B Natriuret Pep 3866 H Total Protein Albumin 2.8 L Arterial Blood Glucose Urine WBC (Auto) Urine Creatinine 01/01/20 01/01/20 01/01/20 12:26 15:33 17:53 WBC 14.3 H RBC 3.35 L Hgb 9.1 L Hct 28.8 L MCHC RDW 17.0 H MCV MCH 27 L Lymph % (Auto) 7.0 L [place] % (Auto) 7.6 H [place] # Eos # Lymph # (Auto) 1.0 L [place] # (Auto) 1.1 H Eos # (Auto) Seg Neutrophils % 83.3 H Seg Neuts % (Manual) Baso # (Auto) Lymphocytes % (Manual) Monocytes % (Manual) Eosinophils % (Manual) Basophils % (Manual) Seg Neutrophils # 12.0 H Seg Neutrophils # Man Lymphocytes # (Manual) Monocytes # (Manual) Eosinophils # (Manual) Nucleated RBC % Basophils # (Manual) PT INR APTT Heparin Anti-Xa Level ABG pH POC ABG pO2 ABG pO2 ABG HCO3 ABG O2 Saturation ABG Base Excess POC ABG pCO2 ABG Hemoglobin ABG Oxyhemoglobin ABG Chloride ABG Glucose Oxyhemoglobin Sodium Potassium Chloride Carbon Dioxide BUN Creatinine Glucose POC Glucose 128 H 128 H Lactic Acid Calcium Phosphorus Magnesium AST ALT Lactate Dehydrogenase Total Bilirubin Direct Bilirubin CK-MB (CK-2) C-Reactive Protein NT-Pro-B Natriuret Pep Total Protein Albumin Arterial Blood Glucose Urine WBC (Auto) Urine Creatinine 01/01/20 01/02/20 01/02/20 23:04 05:39 07:00 WBC RBC Hgb Hct MCHC RDW MCV MCH Lymph % (Auto) [place] % (Auto) [place] # Eos # Lymph # (Auto) [place] # (Auto) Eos # (Auto) Seg Neutrophils % Seg Neuts % (Manual) Baso # (Auto) Lymphocytes % (Manual) Monocytes % (Manual) Eosinophils % (Manual) Basophils % (Manual) Seg Neutrophils # Seg Neutrophils # Man Lymphocytes # (Manual) Monocytes # (Manual) Eosinophils # (Manual) Nucleated RBC % Basophils # (Manual) PT INR APTT Heparin Anti-Xa Level 0.13 L ABG pH POC ABG pO2 ABG pO2 ABG HCO3 ABG O2 Saturation ABG Base Excess POC ABG pCO2 ABG Hemoglobin ABG Oxyhemoglobin ABG Chloride ABG Glucose Oxyhemoglobin Sodium Potassium Chloride Carbon Dioxide BUN Creatinine Glucose POC Glucose 120 H 169 H Lactic Acid Calcium Phosphorus Magnesium AST ALT Lactate Dehydrogenase Total Bilirubin Direct Bilirubin CK-MB (CK-2) C-Reactive Protein NT-Pro-B Natriuret Pep Total Protein Albumin Arterial Blood Glucose Urine WBC (Auto) Urine Creatinine 01/02/20 01/02/20 01/02/20 12:15 14:06 17:58 WBC RBC Hgb Hct MCHC RDW MCV MCH Lymph % (Auto) [place] % (Auto) [place] # Eos # Lymph # (Auto) [place] # (Auto) Eos # (Auto) Seg Neutrophils % Seg Neuts % (Manual) Baso # (Auto) Lymphocytes % (Manual) Monocytes % (Manual) Eosinophils % (Manual) Basophils % (Manual) Seg Neutrophils # Seg Neutrophils # Man Lymphocytes # (Manual) Monocytes # (Manual) Eosinophils # (Manual) Nucleated RBC % Basophils # (Manual) PT INR APTT Heparin Anti-Xa Level < 0.10 L ABG pH POC ABG pO2 ABG pO2 ABG HCO3 ABG O2 Saturation ABG Base Excess POC ABG pCO2 ABG Hemoglobin ABG Oxyhemoglobin ABG Chloride ABG Glucose Oxyhemoglobin Sodium Potassium Chloride Carbon Dioxide BUN Creatinine Glucose POC Glucose 190 H 198 H Lactic Acid Calcium Phosphorus Magnesium AST ALT Lactate Dehydrogenase Total Bilirubin Direct Bilirubin CK-MB (CK-2) C-Reactive Protein NT-Pro-B Natriuret Pep Total Protein Albumin Arterial Blood Glucose Urine WBC (Auto) Urine Creatinine 01/02/20 01/02/20 01/03/20 21:43 23:33 05:42 WBC RBC Hgb Hct MCHC RDW MCV MCH Lymph % (Auto) [place] % (Auto) [place] # Eos # Lymph # (Auto) [place] # (Auto) Eos # (Auto) Seg Neutrophils % Seg Neuts % (Manual) Baso # (Auto) Lymphocytes % (Manual) Monocytes % (Manual) Eosinophils % (Manual) Basophils % (Manual) Seg Neutrophils # Seg Neutrophils # Man Lymphocytes # (Manual) Monocytes # (Manual) Eosinophils # (Manual) Nucleated RBC % Basophils # (Manual) PT INR APTT Heparin Anti-Xa Level 0.10 L ABG pH POC ABG pO2 ABG pO2 ABG HCO3 ABG O2 Saturation ABG Base Excess POC ABG pCO2 ABG Hemoglobin ABG Oxyhemoglobin ABG Chloride ABG Glucose Oxyhemoglobin Sodium Potassium Chloride Carbon Dioxide BUN Creatinine Glucose POC Glucose 180 H 163 H Lactic Acid Calcium Phosphorus Magnesium AST ALT Lactate Dehydrogenase Total Bilirubin Direct Bilirubin CK-MB (CK-2) C-Reactive Protein NT-Pro-B Natriuret Pep Total Protein Albumin Arterial Blood Glucose Urine WBC (Auto) Urine Creatinine 01/03/20 01/03/20 01/03/20 06:50 07:25 07:45 WBC 12.1 H RBC 3.35 L Hgb 9.0 L Hct 28.9 L MCHC 31 L RDW 16.6 H MCV MCH 27 L Lymph % (Auto) 13.0 L [place] % (Auto) 8.6 H [place] # Eos # Lymph # (Auto) [place] # (Auto) 1.0 H Eos # (Auto) Seg Neutrophils % 75.9 H Seg Neuts % (Manual) Baso # (Auto) Lymphocytes % (Manual) Monocytes % (Manual) Eosinophils % (Manual) Basophils % (Manual) Seg Neutrophils # 9.2 H Seg Neutrophils # Man Lymphocytes # (Manual) Monocytes # (Manual) Eosinophils # (Manual) Nucleated RBC % Basophils # (Manual) PT INR APTT Heparin Anti-Xa Level 0.29 L ABG pH POC ABG pO2 ABG pO2 ABG HCO3 ABG O2 Saturation ABG Base Excess POC ABG pCO2 ABG Hemoglobin ABG Oxyhemoglobin ABG Chloride ABG Glucose Oxyhemoglobin Sodium Potassium 3.3 L D Chloride Carbon Dioxide 35 H D BUN 23 H Creatinine 0.6 L Glucose 149 H POC Glucose Lactic Acid Calcium Phosphorus Magnesium AST ALT 88 H Lactate Dehydrogenase Total Bilirubin Direct Bilirubin CK-MB (CK-2) C-Reactive Protein NT-Pro-B Natriuret Pep Total Protein 6.2 L Albumin 2.9 L Arterial Blood Glucose Urine WBC (Auto) Urine Creatinine 01/03/20 01/03/20 01/03/20 12:05 17:42 18:30 WBC RBC Hgb Hct MCHC RDW MCV MCH Lymph % (Auto) [place] % (Auto) [place] # Eos # Lymph # (Auto) [place] # (Auto) Eos # (Auto) Seg Neutrophils % Seg Neuts % (Manual) Baso # (Auto) Lymphocytes % (Manual) Monocytes % (Manual) Eosinophils % (Manual) Basophils % (Manual) Seg Neutrophils # Seg Neutrophils # Man Lymphocytes # (Manual) Monocytes # (Manual) Eosinophils # (Manual) Nucleated RBC % Basophils # (Manual) PT INR APTT Heparin Anti-Xa Level ABG pH POC ABG pO2 ABG pO2 70.7 L ABG HCO3 36.1 H ABG O2 Saturation 94.4 L ABG Base Excess 10.0 H POC ABG pCO2 ABG Hemoglobin 9.7 L ABG Oxyhemoglobin ABG Chloride ABG Glucose Oxyhemoglobin 91.8 L Sodium Potassium Chloride Carbon Dioxide BUN Creatinine Glucose POC Glucose 128 H 132 H Lactic Acid Calcium Phosphorus Magnesium AST ALT Lactate Dehydrogenase Total Bilirubin Direct Bilirubin CK-MB (CK-2) C-Reactive Protein NT-Pro-B Natriuret Pep Total Protein Albumin Arterial Blood Glucose Urine WBC (Auto) Urine Creatinine 01/04/20 01/04/20 01/04/20 00:10 04:26 05:23 WBC RBC Hgb Hct MCHC RDW MCV MCH Lymph % (Auto) [place] % (Auto) [place] # Eos # Lymph # (Auto) [place] # (Auto) Eos # (Auto) Seg Neutrophils % Seg Neuts % (Manual) Baso # (Auto) Lymphocytes % (Manual) Monocytes % (Manual) Eosinophils % (Manual) Basophils % (Manual) Seg Neutrophils # Seg Neutrophils # Man Lymphocytes # (Manual) Monocytes # (Manual) Eosinophils # (Manual) Nucleated RBC % Basophils # (Manual) PT INR APTT Heparin Anti-Xa Level 0.16 L ABG pH POC ABG pO2 ABG pO2 ABG HCO3 ABG O2 Saturation ABG Base Excess POC ABG pCO2 ABG Hemoglobin ABG Oxyhemoglobin ABG Chloride ABG Glucose Oxyhemoglobin Sodium Potassium Chloride Carbon Dioxide BUN Creatinine Glucose POC Glucose 121 H 119 H Lactic Acid Calcium Phosphorus Magnesium AST ALT Lactate Dehydrogenase Total Bilirubin Direct Bilirubin CK-MB (CK-2) C-Reactive Protein NT-Pro-B Natriuret Pep Total Protein Albumin Arterial Blood Glucose Urine WBC (Auto) Urine Creatinine 01/04/20 01/04/20 01/04/20 09:50 09:50 12:18 WBC 15.4 H RBC 3.30 L Hgb 8.7 L Hct 28.2 L MCHC 31 L RDW 17.0 H MCV MCH 26 L Lymph % (Auto) [place] % (Auto) 7.6 H [place] # Eos # Lymph # (Auto) [place] # (Auto) 1.2 H Eos # (Auto) Seg Neutrophils % 75.4 H Seg Neuts % (Manual) Baso # (Auto) Lymphocytes % (Manual) Monocytes % (Manual) Eosinophils % (Manual) Basophils % (Manual) Seg Neutrophils # 11.6 H Seg Neutrophils # Man Lymphocytes # (Manual) Monocytes # (Manual) Eosinophils # (Manual) Nucleated RBC % Basophils # (Manual) PT INR APTT Heparin Anti-Xa Level ABG pH POC ABG pO2 ABG pO2 ABG HCO3 ABG O2 Saturation ABG Base Excess POC ABG pCO2 ABG Hemoglobin ABG Oxyhemoglobin ABG Chloride ABG Glucose Oxyhemoglobin Sodium 148 H Potassium 3.5 L Chloride Carbon Dioxide 32 H BUN Creatinine 0.6 L Glucose 114 H POC Glucose 111 H Lactic Acid Calcium Phosphorus Magnesium AST ALT 59 H Lactate Dehydrogenase Total Bilirubin Direct Bilirubin CK-MB (CK-2) C-Reactive Protein NT-Pro-B Natriuret Pep Total Protein Albumin 2.6 L Arterial Blood Glucose Urine WBC (Auto) Urine Creatinine 01/05/20 01/05/20 01/05/20 04:05 04:05 05:19 WBC 11.7 H RBC 3.50 L Hgb 9.3 L Hct 29.9 L MCHC 31 L RDW 16.6 H MCV MCH 27 L Lymph % (Auto) 13.1 L [place] % (Auto) 9.7 H [place] # Eos # Lymph # (Auto) [place] # (Auto) 1.1 H Eos # (Auto) Seg Neutrophils % 74.0 H Seg Neuts % (Manual) Baso # (Auto) Lymphocytes % (Manual) Monocytes % (Manual) Eosinophils % (Manual) Basophils % (Manual) Seg Neutrophils # 8.6 H Seg Neutrophils # Man Lymphocytes # (Manual) Monocytes # (Manual) Eosinophils # (Manual) Nucleated RBC % Basophils # (Manual) PT INR APTT Heparin Anti-Xa Level ABG pH POC ABG pO2 ABG pO2 ABG HCO3 ABG O2 Saturation ABG Base Excess POC ABG pCO2 ABG Hemoglobin ABG Oxyhemoglobin ABG Chloride ABG Glucose Oxyhemoglobin Sodium 151 H Potassium Chloride Carbon Dioxide 34 H BUN Creatinine 0.7 L Glucose POC Glucose 112 H Lactic Acid Calcium Phosphorus Magnesium AST ALT 59 H Lactate Dehydrogenase Total Bilirubin Direct Bilirubin CK-MB (CK-2) C-Reactive Protein NT-Pro-B Natriuret Pep Total Protein 5.8 L Albumin 2.6 L Arterial Blood Glucose Urine WBC (Auto) Urine Creatinine 01/05/20 01/06/20 01/06/20 16:04 00:23 04:44 WBC RBC 3.36 L Hgb 8.9 L Hct 28.7 L MCHC 31 L RDW 16.9 H MCV MCH 26 L Lymph % (Auto) [place] % (Auto) 9.4 H [place] # Eos # Lymph # (Auto) [place] # (Auto) Eos # (Auto) Seg Neutrophils % Seg Neuts % (Manual) Baso # (Auto) Lymphocytes % (Manual) Monocytes % (Manual) Eosinophils % (Manual) Basophils % (Manual) Seg Neutrophils # Seg Neutrophils # Man Lymphocytes # (Manual) Monocytes # (Manual) Eosinophils # (Manual) Nucleated RBC % Basophils # (Manual) PT INR APTT Heparin Anti-Xa Level ABG pH POC ABG pO2 ABG pO2 ABG HCO3 ABG O2 Saturation ABG Base Excess POC ABG pCO2 ABG Hemoglobin ABG Oxyhemoglobin ABG Chloride ABG Glucose Oxyhemoglobin Sodium 151 H Potassium 3.2 L Chloride Carbon Dioxide 34 H BUN Creatinine 0.6 L Glucose POC Glucose 107 H Lactic Acid Calcium Phosphorus Magnesium AST ALT Lactate Dehydrogenase Total Bilirubin Direct Bilirubin CK-MB (CK-2) C-Reactive Protein NT-Pro-B Natriuret Pep Total Protein Albumin Arterial Blood Glucose Urine WBC (Auto) Urine Creatinine 01/06/20 01/06/20 01/06/20 04:44 05:33 12:04 WBC RBC Hgb Hct MCHC RDW MCV MCH Lymph % (Auto) [place] % (Auto) [place] # Eos # Lymph # (Auto) [place] # (Auto) Eos # (Auto) Seg Neutrophils % Seg Neuts % (Manual) Baso # (Auto) Lymphocytes % (Manual) Monocytes % (Manual) Eosinophils % (Manual) Basophils % (Manual) Seg Neutrophils # Seg Neutrophils # Man Lymphocytes # (Manual) Monocytes # (Manual) Eosinophils # (Manual) Nucleated RBC % Basophils # (Manual) PT INR APTT Heparin Anti-Xa Level ABG pH POC ABG pO2 ABG pO2 ABG HCO3 ABG O2 Saturation ABG Base Excess POC ABG pCO2 ABG Hemoglobin ABG Oxyhemoglobin ABG Chloride ABG Glucose Oxyhemoglobin Sodium 151 H Potassium 3.4 L Chloride Carbon Dioxide 33 H BUN Creatinine 0.6 L Glucose 118 H POC Glucose 118 H 123 H Lactic Acid Calcium Phosphorus Magnesium AST ALT Lactate Dehydrogenase Total Bilirubin Direct Bilirubin CK-MB (CK-2) C-Reactive Protein NT-Pro-B Natriuret Pep Total Protein 6.2 L Albumin 2.6 L Arterial Blood Glucose Urine WBC (Auto) Urine Creatinine 01/06/20 01/07/20 01/07/20 17:54 00:06 04:10 WBC RBC 3.42 L Hgb 8.9 L Hct 29.0 L MCHC 31 L RDW 17.1 H MCV MCH 26 L Lymph % (Auto) [place] % (Auto) 8.4 H [place] # Eos # Lymph # (Auto) [place] # (Auto) Eos # (Auto) Seg Neutrophils % Seg Neuts % (Manual) Baso # (Auto) Lymphocytes % (Manual) Monocytes % (Manual) Eosinophils % (Manual) Basophils % (Manual) Seg Neutrophils # Seg Neutrophils # Man Lymphocytes # (Manual) Monocytes # (Manual) Eosinophils # (Manual) Nucleated RBC % Basophils # (Manual) PT INR APTT Heparin Anti-Xa Level ABG pH POC ABG pO2 ABG pO2 ABG HCO3 ABG O2 Saturation ABG Base Excess POC ABG pCO2 ABG Hemoglobin ABG Oxyhemoglobin ABG Chloride ABG Glucose Oxyhemoglobin Sodium Potassium Chloride Carbon Dioxide BUN Creatinine Glucose POC Glucose 112 H 126 H Lactic Acid Calcium Phosphorus Magnesium AST ALT Lactate Dehydrogenase Total Bilirubin Direct Bilirubin CK-MB (CK-2) C-Reactive Protein NT-Pro-B Natriuret Pep Total Protein Albumin Arterial Blood Glucose Urine WBC (Auto) Urine Creatinine 01/07/20 01/07/20 01/07/20 04:10 05:59 12:27 WBC RBC Hgb Hct MCHC RDW MCV MCH Lymph % (Auto) [place] % (Auto) [place] # Eos # Lymph # (Auto) [place] # (Auto) Eos # (Auto) Seg Neutrophils % Seg Neuts % (Manual) Baso # (Auto) Lymphocytes % (Manual) Monocytes % (Manual) Eosinophils % (Manual) Basophils % (Manual) Seg Neutrophils # Seg Neutrophils # Man Lymphocytes # (Manual) Monocytes # (Manual) Eosinophils # (Manual) Nucleated RBC % Basophils # (Manual) PT INR APTT Heparin Anti-Xa Level ABG pH POC ABG pO2 ABG pO2 ABG HCO3 ABG O2 Saturation ABG Base Excess POC ABG pCO2 ABG Hemoglobin ABG Oxyhemoglobin ABG Chloride ABG Glucose Oxyhemoglobin Sodium 153 H Potassium 3.5 L Chloride Carbon Dioxide 34 H BUN Creatinine 0.6 L Glucose 121 H POC Glucose 121 H 126 H Lactic Acid Calcium Phosphorus Magnesium AST ALT Lactate Dehydrogenase Total Bilirubin Direct Bilirubin CK-MB (CK-2) C-Reactive Protein NT-Pro-B Natriuret Pep Total Protein 5.9 L Albumin 2.4 L Arterial Blood Glucose Urine WBC (Auto) Urine Creatinine 01/07/20 01/08/20 01/08/20 18:12 00:03 05:41 WBC RBC Hgb Hct MCHC RDW MCV MCH Lymph % (Auto) [place] % (Auto) [place] # Eos # Lymph # (Auto) [place] # (Auto) Eos # (Auto) Seg Neutrophils % Seg Neuts % (Manual) Baso # (Auto) Lymphocytes % (Manual) Monocytes % (Manual) Eosinophils % (Manual) Basophils % (Manual) Seg Neutrophils # Seg Neutrophils # Man Lymphocytes # (Manual) Monocytes # (Manual) Eosinophils # (Manual) Nucleated RBC % Basophils # (Manual) PT INR APTT Heparin Anti-Xa Level ABG pH POC ABG pO2 ABG pO2 ABG HCO3 ABG O2 Saturation ABG Base Excess POC ABG pCO2 ABG Hemoglobin ABG Oxyhemoglobin ABG Chloride ABG Glucose Oxyhemoglobin Sodium Potassium Chloride Carbon Dioxide BUN Creatinine Glucose POC Glucose 124 H 130 H 138 H Lactic Acid Calcium Phosphorus Magnesium AST ALT Lactate Dehydrogenase Total Bilirubin Direct Bilirubin CK-MB (CK-2) C-Reactive Protein NT-Pro-B Natriuret Pep Total Protein Albumin Arterial Blood Glucose Urine WBC (Auto) Urine Creatinine 01/08/20 01/08/20 01/08/20 09:28 11:42 18:21 WBC RBC Hgb Hct MCHC RDW MCV MCH Lymph % (Auto) [place] % (Auto) [place] # Eos # Lymph # (Auto) [place] # (Auto) Eos # (Auto) Seg Neutrophils % Seg Neuts % (Manual) Baso # (Auto) Lymphocytes % (Manual) Monocytes % (Manual) Eosinophils % (Manual) Basophils % (Manual) Seg Neutrophils # Seg Neutrophils # Man Lymphocytes # (Manual) Monocytes # (Manual) Eosinophils # (Manual) Nucleated RBC % Basophils # (Manual) PT INR APTT Heparin Anti-Xa Level ABG pH POC ABG pO2 ABG pO2 ABG HCO3 ABG O2 Saturation ABG Base Excess POC ABG pCO2 ABG Hemoglobin ABG Oxyhemoglobin ABG Chloride ABG Glucose Oxyhemoglobin Sodium Potassium Chloride Carbon Dioxide BUN Creatinine Glucose POC Glucose 181 H 150 H 129 H Lactic Acid Calcium Phosphorus Magnesium AST ALT Lactate Dehydrogenase Total Bilirubin Direct Bilirubin CK-MB (CK-2) C-Reactive Protein NT-Pro-B Natriuret Pep Total Protein Albumin Arterial Blood Glucose Urine WBC (Auto) Urine Creatinine 01/08/20 01/08/20 01/09/20 19:25 23:55 04:11 WBC RBC 3.43 L Hgb 8.9 L Hct 28.7 L MCHC 31 L RDW 17.6 H MCV MCH 26 L Lymph % (Auto) [place] % (Auto) 8.6 H [place] # Eos # Lymph # (Auto) [place] # (Auto) Eos # (Auto) Seg Neutrophils % Seg Neuts % (Manual) Baso # (Auto) Lymphocytes % (Manual) Monocytes % (Manual) Eosinophils % (Manual) Basophils % (Manual) Seg Neutrophils # Seg Neutrophils # Man Lymphocytes # (Manual) Monocytes # (Manual) Eosinophils # (Manual) Nucleated RBC % Basophils # (Manual) PT INR APTT Heparin Anti-Xa Level ABG pH POC ABG pO2 ABG pO2 ABG HCO3 ABG O2 Saturation ABG Base Excess POC ABG pCO2 ABG Hemoglobin ABG Oxyhemoglobin ABG Chloride ABG Glucose Oxyhemoglobin Sodium Potassium Chloride Carbon Dioxide BUN Creatinine 0.7 L Glucose 117 H POC Glucose 132 H Lactic Acid Calcium Phosphorus Magnesium AST ALT Lactate Dehydrogenase Total Bilirubin Direct Bilirubin CK-MB (CK-2) C-Reactive Protein NT-Pro-B Natriuret Pep Total Protein Albumin Arterial Blood Glucose Urine WBC (Auto) Urine Creatinine 01/09/20 01/09/20 01/09/20 04:11 05:38 22:58 WBC RBC Hgb Hct MCHC RDW MCV MCH Lymph % (Auto) [place] % (Auto) [place] # Eos # Lymph # (Auto) [place] # (Auto) Eos # (Auto) Seg Neutrophils % Seg Neuts % (Manual) Baso # (Auto) Lymphocytes % (Manual) Monocytes % (Manual) Eosinophils % (Manual) Basophils % (Manual) Seg Neutrophils # Seg Neutrophils # Man Lymphocytes # (Manual) Monocytes # (Manual) Eosinophils # (Manual) Nucleated RBC % Basophils # (Manual) PT INR APTT Heparin Anti-Xa Level ABG pH POC ABG pO2 ABG pO2 ABG HCO3 ABG O2 Saturation ABG Base Excess POC ABG pCO2 ABG Hemoglobin ABG Oxyhemoglobin ABG Chloride ABG Glucose Oxyhemoglobin Sodium 147 H Potassium 3.3 L D Chloride Carbon Dioxide 32 H BUN Creatinine 0.6 L Glucose 106 H POC Glucose 107 H 113 H Lactic Acid Calcium Phosphorus Magnesium AST ALT Lactate Dehydrogenase Total Bilirubin Direct Bilirubin CK-MB (CK-2) C-Reactive Protein NT-Pro-B Natriuret Pep Total Protein Albumin Arterial Blood Glucose Urine WBC (Auto) Urine Creatinine 01/10/20 01/10/20 01/10/20 04:05 11:36 17:54 WBC RBC Hgb Hct MCHC RDW MCV MCH Lymph % (Auto) [place] % (Auto) [place] # Eos # Lymph # (Auto) [place] # (Auto) Eos # (Auto) Seg Neutrophils % Seg Neuts % (Manual) Baso # (Auto) Lymphocytes % (Manual) Monocytes % (Manual) Eosinophils % (Manual) Basophils % (Manual) Seg Neutrophils # Seg Neutrophils # Man Lymphocytes # (Manual) Monocytes # (Manual) Eosinophils # (Manual) Nucleated RBC % Basophils # (Manual) PT INR APTT Heparin Anti-Xa Level ABG pH POC ABG pO2 ABG pO2 ABG HCO3 ABG O2 Saturation ABG Base Excess POC ABG pCO2 ABG Hemoglobin ABG Oxyhemoglobin ABG Chloride ABG Glucose Oxyhemoglobin Sodium Potassium Chloride Carbon Dioxide BUN Creatinine 0.7 L Glucose 110 H POC Glucose 129 H 117 H Lactic Acid Calcium Phosphorus Magnesium AST ALT Lactate Dehydrogenase Total Bilirubin Direct Bilirubin CK-MB (CK-2) C-Reactive Protein NT-Pro-B Natriuret Pep Total Protein Albumin Arterial Blood Glucose Urine WBC (Auto) Urine Creatinine 01/10/20 01/11/20 01/11/20 23:52 03:19 12:09 WBC RBC Hgb Hct MCHC RDW MCV MCH Lymph % (Auto) [place] % (Auto) [place] # Eos # Lymph # (Auto) [place] # (Auto) Eos # (Auto) Seg Neutrophils % Seg Neuts % (Manual) Baso # (Auto) Lymphocytes % (Manual) Monocytes % (Manual) Eosinophils % (Manual) Basophils % (Manual) Seg Neutrophils # Seg Neutrophils # Man Lymphocytes # (Manual) Monocytes # (Manual) Eosinophils # (Manual) Nucleated RBC % Basophils # (Manual) PT INR APTT Heparin Anti-Xa Level ABG pH POC ABG pO2 ABG pO2 ABG HCO3 ABG O2 Saturation ABG Base Excess POC ABG pCO2 ABG Hemoglobin ABG Oxyhemoglobin ABG Chloride ABG Glucose Oxyhemoglobin Sodium Potassium Chloride Carbon Dioxide BUN Creatinine Glucose POC Glucose 117 H 136 H 115 H Lactic Acid Calcium Phosphorus Magnesium AST ALT Lactate Dehydrogenase Total Bilirubin Direct Bilirubin CK-MB (CK-2) C-Reactive Protein NT-Pro-B Natriuret Pep Total Protein Albumin Arterial Blood Glucose Urine WBC (Auto) Urine Creatinine 01/11/20 01/11/20 01/12/20 18:27 23:28 00:23 WBC RBC Hgb 9.8 L Hct 31.6 L MCHC 31 L RDW 17.8 H MCV 83 L MCH 26 L Lymph % (Auto) [place] % (Auto) 8.0 H [place] # Eos # Lymph # (Auto) [place] # (Auto) Eos # (Auto) Seg Neutrophils % Seg Neuts % (Manual) Baso # (Auto) Lymphocytes % (Manual) Monocytes % (Manual) Eosinophils % (Manual) Basophils % (Manual) Seg Neutrophils # Seg Neutrophils # Man Lymphocytes # (Manual) Monocytes # (Manual) Eosinophils # (Manual) Nucleated RBC % Basophils # (Manual) PT INR APTT Heparin Anti-Xa Level ABG pH POC ABG pO2 ABG pO2 ABG HCO3 ABG O2 Saturation ABG Base Excess POC ABG pCO2 ABG Hemoglobin ABG Oxyhemoglobin ABG Chloride ABG Glucose Oxyhemoglobin Sodium Potassium Chloride Carbon Dioxide BUN Creatinine Glucose POC Glucose 118 H 122 H Lactic Acid Calcium Phosphorus Magnesium AST ALT Lactate Dehydrogenase Total Bilirubin Direct Bilirubin CK-MB (CK-2) C-Reactive Protein NT-Pro-B Natriuret Pep Total Protein Albumin Arterial Blood Glucose Urine WBC (Auto) Urine Creatinine 01/12/20 01/12/20 01/12/20 00:23 04:18 04:18 WBC RBC Hgb 9.6 L Hct 30.9 L MCHC 31 L RDW 17.3 H MCV 81 L MCH 25 L Lymph % (Auto) [place] % (Auto) [place] # Eos # Lymph # (Auto) [place] # (Auto) Eos # (Auto) Seg Neutrophils % Seg Neuts % (Manual) Baso # (Auto) Lymphocytes % (Manual) Monocytes % (Manual) Eosinophils % (Manual) Basophils % (Manual) Seg Neutrophils # Seg Neutrophils # Man Lymphocytes # (Manual) Monocytes # (Manual) Eosinophils # (Manual) Nucleated RBC % Basophils # (Manual) PT INR APTT Heparin Anti-Xa Level ABG pH POC ABG pO2 ABG pO2 ABG HCO3 ABG O2 Saturation ABG Base Excess POC ABG pCO2 ABG Hemoglobin ABG Oxyhemoglobin ABG Chloride ABG Glucose Oxyhemoglobin Sodium Potassium Chloride Carbon Dioxide BUN Creatinine 0.7 L 0.7 L Glucose 111 H 108 H POC Glucose Lactic Acid Calcium Phosphorus Magnesium AST ALT Lactate Dehydrogenase Total Bilirubin Direct Bilirubin CK-MB (CK-2) C-Reactive Protein NT-Pro-B Natriuret Pep Total Protein Albumin 2.6 L Arterial Blood Glucose Urine WBC (Auto) Urine Creatinine 01/12/20 01/12/20 01/12/20 06:03 12:27 13:58 WBC RBC Hgb Hct MCHC RDW MCV MCH Lymph % (Auto) [place] % (Auto) [place] # Eos # Lymph # (Auto) [place] # (Auto) Eos # (Auto) Seg Neutrophils % Seg Neuts % (Manual) Baso # (Auto) Lymphocytes % (Manual) Monocytes % (Manual) Eosinophils % (Manual) Basophils % (Manual) Seg Neutrophils # Seg Neutrophils # Man Lymphocytes # (Manual) Monocytes # (Manual) Eosinophils # (Manual) Nucleated RBC % Basophils # (Manual) PT INR APTT Heparin Anti-Xa Level ABG pH 7.453 H POC ABG pO2 76.6 L ABG pO2 ABG HCO3 ABG O2 Saturation ABG Base Excess POC ABG pCO2 ABG Hemoglobin 10.3 L ABG Oxyhemoglobin ABG Chloride ABG Glucose 99 H Oxyhemoglobin Sodium Potassium Chloride Carbon Dioxide BUN Creatinine Glucose POC Glucose 128 H 121 H Lactic Acid Calcium Phosphorus Magnesium AST ALT Lactate Dehydrogenase Total Bilirubin Direct Bilirubin CK-MB (CK-2) C-Reactive Protein NT-Pro-B Natriuret Pep Total Protein Albumin Arterial Blood Glucose 99 H Urine WBC (Auto) Urine Creatinine 01/12/20 01/13/20 01/13/20 18:24 12:01 17:46 WBC RBC Hgb Hct MCHC RDW MCV MCH Lymph % (Auto) [place] % (Auto) [place] # Eos # Lymph # (Auto) [place] # (Auto) Eos # (Auto) Seg Neutrophils % Seg Neuts % (Manual) Baso # (Auto) Lymphocytes % (Manual) Monocytes % (Manual) Eosinophils % (Manual) Basophils % (Manual) Seg Neutrophils # Seg Neutrophils # Man Lymphocytes # (Manual) Monocytes # (Manual) Eosinophils # (Manual) Nucleated RBC % Basophils # (Manual) PT INR APTT Heparin Anti-Xa Level ABG pH POC ABG pO2 ABG pO2 ABG HCO3 ABG O2 Saturation ABG Base Excess POC ABG pCO2 ABG Hemoglobin ABG Oxyhemoglobin ABG Chloride ABG Glucose Oxyhemoglobin Sodium Potassium Chloride Carbon Dioxide BUN Creatinine Glucose POC Glucose 119 H 107 H 124 H Lactic Acid Calcium Phosphorus Magnesium AST ALT Lactate Dehydrogenase Total Bilirubin Direct Bilirubin CK-MB (CK-2) C-Reactive Protein NT-Pro-B Natriuret Pep Total Protein Albumin Arterial Blood Glucose Urine WBC (Auto) Urine Creatinine 01/13/20 01/14/20 01/14/20 20:40 00:10 05:33 WBC RBC Hgb Hct MCHC RDW MCV MCH Lymph % (Auto) [place] % (Auto) [place] # Eos # Lymph # (Auto) [place] # (Auto) Eos # (Auto) Seg Neutrophils % Seg Neuts % (Manual) Baso # (Auto) Lymphocytes % (Manual) Monocytes % (Manual) Eosinophils % (Manual) Basophils % (Manual) Seg Neutrophils # Seg Neutrophils # Man Lymphocytes # (Manual) Monocytes # (Manual) Eosinophils # (Manual) Nucleated RBC % Basophils # (Manual) PT INR APTT Heparin Anti-Xa Level ABG pH POC ABG pO2 ABG pO2 65.3 L ABG HCO3 31.8 H ABG O2 Saturation 93.5 L ABG Base Excess 6.7 H POC ABG pCO2 ABG Hemoglobin 13.3 L ABG Oxyhemoglobin ABG Chloride ABG Glucose Oxyhemoglobin 90.9 L Sodium Potassium Chloride Carbon Dioxide BUN Creatinine Glucose POC Glucose 111 H 111 H Lactic Acid Calcium Phosphorus Magnesium AST ALT Lactate Dehydrogenase Total Bilirubin Direct Bilirubin CK-MB (CK-2) C-Reactive Protein NT-Pro-B Natriuret Pep Total Protein Albumin Arterial Blood Glucose Urine WBC (Auto) Urine Creatinine 01/14/20 01/14/20 01/14/20 12:10 16:14 16:14 WBC RBC Hgb 10.6 L Hct 34.2 L MCHC 31 L RDW 18.3 H MCV 83 L MCH 26 L Lymph % (Auto) [place] % (Auto) 7.4 H [place] # Eos # Lymph # (Auto) [place] # (Auto) Eos # (Auto) Seg Neutrophils % 71.9 H Seg Neuts % (Manual) Baso # (Auto) Lymphocytes % (Manual) Monocytes % (Manual) Eosinophils % (Manual) Basophils % (Manual) Seg Neutrophils # Seg Neutrophils # Man Lymphocytes # (Manual) Monocytes # (Manual) Eosinophils # (Manual) Nucleated RBC % Basophils # (Manual) PT INR APTT Heparin Anti-Xa Level ABG pH POC ABG pO2 ABG pO2 ABG HCO3 ABG O2 Saturation ABG Base Excess POC ABG pCO2 ABG Hemoglobin ABG Oxyhemoglobin ABG Chloride ABG Glucose Oxyhemoglobin Sodium Potassium Chloride Carbon Dioxide 31 H BUN Creatinine 0.6 L Glucose 131 H POC Glucose 139 H Lactic Acid Calcium Phosphorus Magnesium AST ALT Lactate Dehydrogenase Total Bilirubin Direct Bilirubin CK-MB (CK-2) C-Reactive Protein NT-Pro-B Natriuret Pep Total Protein Albumin Arterial Blood Glucose Urine WBC (Auto) Urine Creatinine 01/14/20 01/15/20 01/15/20 18:05 00:52 05:35 WBC RBC Hgb Hct MCHC RDW MCV MCH Lymph % (Auto) [place] % (Auto) [place] # Eos # Lymph # (Auto) [place] # (Auto) Eos # (Auto) Seg Neutrophils % Seg Neuts % (Manual) Baso # (Auto) Lymphocytes % (Manual) Monocytes % (Manual) Eosinophils % (Manual) Basophils % (Manual) Seg Neutrophils # Seg Neutrophils # Man Lymphocytes # (Manual) Monocytes # (Manual) Eosinophils # (Manual) Nucleated RBC % Basophils # (Manual) PT INR APTT Heparin Anti-Xa Level ABG pH POC ABG pO2 ABG pO2 ABG HCO3 ABG O2 Saturation ABG Base Excess POC ABG pCO2 ABG Hemoglobin ABG Oxyhemoglobin ABG Chloride ABG Glucose Oxyhemoglobin Sodium Potassium Chloride Carbon Dioxide BUN Creatinine Glucose POC Glucose 147 H 140 H 159 H Lactic Acid Calcium Phosphorus Magnesium AST ALT Lactate Dehydrogenase Total Bilirubin Direct Bilirubin CK-MB (CK-2) C-Reactive Protein NT-Pro-B Natriuret Pep Total Protein Albumin Arterial Blood Glucose Urine WBC (Auto) Urine Creatinine 01/15/20 01/15/20 01/16/20 12:52 17:43 00:32 WBC RBC Hgb Hct MCHC RDW MCV MCH Lymph % (Auto) [place] % (Auto) [place] # Eos # Lymph # (Auto) [place] # (Auto) Eos # (Auto) Seg Neutrophils % Seg Neuts % (Manual) Baso # (Auto) Lymphocytes % (Manual) Monocytes % (Manual) Eosinophils % (Manual) Basophils % (Manual) Seg Neutrophils # Seg Neutrophils # Man Lymphocytes # (Manual) Monocytes # (Manual) Eosinophils # (Manual) Nucleated RBC % Basophils # (Manual) PT INR APTT Heparin Anti-Xa Level ABG pH POC ABG pO2 ABG pO2 ABG HCO3 ABG O2 Saturation ABG Base Excess POC ABG pCO2 ABG Hemoglobin ABG Oxyhemoglobin ABG Chloride ABG Glucose Oxyhemoglobin Sodium Potassium Chloride Carbon Dioxide BUN Creatinine Glucose POC Glucose 164 H 167 H 153 H Lactic Acid Calcium Phosphorus Magnesium AST ALT Lactate Dehydrogenase Total Bilirubin Direct Bilirubin CK-MB (CK-2) C-Reactive Protein NT-Pro-B Natriuret Pep Total Protein Albumin Arterial Blood Glucose Urine WBC (Auto) Urine Creatinine 01/16/20 01/16/20 01/17/20 05:46 11:48 06:38 WBC RBC Hgb Hct MCHC RDW MCV MCH Lymph % (Auto) [place] % (Auto) [place] # Eos # Lymph # (Auto) [place] # (Auto) Eos # (Auto) Seg Neutrophils % Seg Neuts % (Manual) Baso # (Auto) Lymphocytes % (Manual) Monocytes % (Manual) Eosinophils % (Manual) Basophils % (Manual) Seg Neutrophils # Seg Neutrophils # Man Lymphocytes # (Manual) Monocytes # (Manual) Eosinophils # (Manual) Nucleated RBC % Basophils # (Manual) PT INR APTT Heparin Anti-Xa Level ABG pH POC ABG pO2 ABG pO2 ABG HCO3 ABG O2 Saturation ABG Base Excess POC ABG pCO2 ABG Hemoglobin ABG Oxyhemoglobin ABG Chloride ABG Glucose Oxyhemoglobin Sodium Potassium Chloride Carbon Dioxide BUN Creatinine Glucose POC Glucose 163 H 155 H 116 H Lactic Acid Calcium Phosphorus Magnesium AST ALT Lactate Dehydrogenase Total Bilirubin Direct Bilirubin CK-MB (CK-2) C-Reactive Protein NT-Pro-B Natriuret Pep Total Protein Albumin Arterial Blood Glucose Urine WBC (Auto) Urine Creatinine 01/17/20 01/17/20 01/18/20 11:36 17:43 00:12 WBC RBC Hgb Hct MCHC RDW MCV MCH Lymph % (Auto) [place] % (Auto) [place] # Eos # Lymph # (Auto) [place] # (Auto) Eos # (Auto) Seg Neutrophils % Seg Neuts % (Manual) Baso # (Auto) Lymphocytes % (Manual) Monocytes % (Manual) Eosinophils % (Manual) Basophils % (Manual) Seg Neutrophils # Seg Neutrophils # Man Lymphocytes # (Manual) Monocytes # (Manual) Eosinophils # (Manual) Nucleated RBC % Basophils # (Manual) PT INR APTT Heparin Anti-Xa Level ABG pH POC ABG pO2 ABG pO2 ABG HCO3 ABG O2 Saturation ABG Base Excess POC ABG pCO2 ABG Hemoglobin ABG Oxyhemoglobin ABG Chloride ABG Glucose Oxyhemoglobin Sodium Potassium Chloride Carbon Dioxide BUN Creatinine Glucose POC Glucose 110 H 134 H 108 H Lactic Acid Calcium Phosphorus Magnesium AST ALT Lactate Dehydrogenase Total Bilirubin Direct Bilirubin CK-MB (CK-2) C-Reactive Protein NT-Pro-B Natriuret Pep Total Protein Albumin Arterial Blood Glucose Urine WBC (Auto) Urine Creatinine 01/18/20 01/18/20 01/18/20 05:37 06:46 06:46 WBC RBC Hgb 10.1 L Hct 32.2 L MCHC 31 L RDW 18.1 H MCV 81 L MCH 25 L Lymph % (Auto) [place] % (Auto) [place] # Eos # Lymph # (Auto) [place] # (Auto) Eos # (Auto) Seg Neutrophils % 71.9 H Seg Neuts % (Manual) Baso # (Auto) Lymphocytes % (Manual) Monocytes % (Manual) Eosinophils % (Manual) Basophils % (Manual) Seg Neutrophils # Seg Neutrophils # Man Lymphocytes # (Manual) Monocytes # (Manual) Eosinophils # (Manual) Nucleated RBC % Basophils # (Manual) PT INR APTT Heparin Anti-Xa Level ABG pH POC ABG pO2 ABG pO2 ABG HCO3 ABG O2 Saturation ABG Base Excess POC ABG pCO2 ABG Hemoglobin ABG Oxyhemoglobin ABG Chloride ABG Glucose Oxyhemoglobin Sodium Potassium Chloride Carbon Dioxide BUN Creatinine 0.7 L Glucose 155 H POC Glucose 168 H Lactic Acid Calcium Phosphorus Magnesium AST ALT Lactate Dehydrogenase Total Bilirubin Direct Bilirubin CK-MB (CK-2) C-Reactive Protein NT-Pro-B Natriuret Pep Total Protein Albumin Arterial Blood Glucose Urine WBC (Auto) Urine Creatinine 01/18/20 01/18/20 01/18/20 12:05 17:14 23:28 WBC RBC Hgb Hct MCHC RDW MCV MCH Lymph % (Auto) [place] % (Auto) [place] # Eos # Lymph # (Auto) [place] # (Auto) Eos # (Auto) Seg Neutrophils % Seg Neuts % (Manual) Baso # (Auto) Lymphocytes % (Manual) Monocytes % (Manual) Eosinophils % (Manual) Basophils % (Manual) Seg Neutrophils # Seg Neutrophils # Man Lymphocytes # (Manual) Monocytes # (Manual) Eosinophils # (Manual) Nucleated RBC % Basophils # (Manual) PT INR APTT Heparin Anti-Xa Level ABG pH POC ABG pO2 ABG pO2 ABG HCO3 ABG O2 Saturation ABG Base Excess POC ABG pCO2 ABG Hemoglobin ABG Oxyhemoglobin ABG Chloride ABG Glucose Oxyhemoglobin Sodium Potassium Chloride Carbon Dioxide BUN Creatinine Glucose POC Glucose 128 H 126 H 128 H Lactic Acid Calcium Phosphorus Magnesium AST ALT Lactate Dehydrogenase Total Bilirubin Direct Bilirubin CK-MB (CK-2) C-Reactive Protein NT-Pro-B Natriuret Pep Total Protein Albumin Arterial Blood Glucose Urine WBC (Auto) Urine Creatinine 01/19/20 01/19/20 01/19/20 05:39 12:33 17:36 WBC RBC Hgb Hct MCHC RDW MCV MCH Lymph % (Auto) [place] % (Auto) [place] # Eos # Lymph # (Auto) [place] # (Auto) Eos # (Auto) Seg Neutrophils % Seg Neuts % (Manual) Baso # (Auto) Lymphocytes % (Manual) Monocytes % (Manual) Eosinophils % (Manual) Basophils % (Manual) Seg Neutrophils # Seg Neutrophils # Man Lymphocytes # (Manual) Monocytes # (Manual) Eosinophils # (Manual) Nucleated RBC % Basophils # (Manual) PT INR APTT Heparin Anti-Xa Level ABG pH POC ABG pO2 ABG pO2 ABG HCO3 ABG O2 Saturation ABG Base Excess POC ABG pCO2 ABG Hemoglobin ABG Oxyhemoglobin ABG Chloride ABG Glucose Oxyhemoglobin Sodium Potassium Chloride Carbon Dioxide BUN Creatinine Glucose POC Glucose 164 H 171 H 152 H Lactic Acid Calcium Phosphorus Magnesium AST ALT Lactate Dehydrogenase Total Bilirubin Direct Bilirubin CK-MB (CK-2) C-Reactive Protein NT-Pro-B Natriuret Pep Total Protein Albumin Arterial Blood Glucose Urine WBC (Auto) Urine Creatinine 01/20/20 01/20/20 01/20/20 00:12 05:20 05:35 WBC RBC Hgb 9.2 L Hct 29.4 L MCHC 31 L RDW 17.9 H MCV 81 L MCH 25 L Lymph % (Auto) [place] % (Auto) [place] # Eos # Lymph # (Auto) [place] # (Auto) Eos # (Auto) Seg Neutrophils % Seg Neuts % (Manual) Baso # (Auto) Lymphocytes % (Manual) Monocytes % (Manual) Eosinophils % (Manual) Basophils % (Manual) Seg Neutrophils # Seg Neutrophils # Man Lymphocytes # (Manual) Monocytes # (Manual) Eosinophils # (Manual) Nucleated RBC % Basophils # (Manual) PT INR APTT Heparin Anti-Xa Level ABG pH POC ABG pO2 ABG pO2 ABG HCO3 ABG O2 Saturation ABG Base Excess POC ABG pCO2 ABG Hemoglobin ABG Oxyhemoglobin ABG Chloride ABG Glucose Oxyhemoglobin Sodium Potassium Chloride Carbon Dioxide BUN Creatinine Glucose POC Glucose 120 H 136 H Lactic Acid Calcium Phosphorus Magnesium AST ALT Lactate Dehydrogenase Total Bilirubin Direct Bilirubin CK-MB (CK-2) C-Reactive Protein NT-Pro-B Natriuret Pep Total Protein Albumin Arterial Blood Glucose Urine WBC (Auto) Urine Creatinine 01/20/20 01/20/20 01/20/20 05:40 11:58 14:55 WBC RBC Hgb 9.0 L Hct 28.3 L MCHC RDW MCV MCH Lymph % (Auto) [place] % (Auto) [place] # Eos # Lymph # (Auto) [place] # (Auto) Eos # (Auto) Seg Neutrophils % Seg Neuts % (Manual) Baso # (Auto) Lymphocytes % (Manual) Monocytes % (Manual) Eosinophils % (Manual) Basophils % (Manual) Seg Neutrophils # Seg Neutrophils # Man Lymphocytes # (Manual) Monocytes # (Manual) Eosinophils # (Manual) Nucleated RBC % Basophils # (Manual) PT INR APTT Heparin Anti-Xa Level ABG pH POC ABG pO2 ABG pO2 ABG HCO3 ABG O2 Saturation ABG Base Excess POC ABG pCO2 ABG Hemoglobin ABG Oxyhemoglobin ABG Chloride ABG Glucose Oxyhemoglobin Sodium Potassium Chloride Carbon Dioxide 32 H BUN 22 H Creatinine 0.7 L Glucose 128 H POC Glucose 152 H Lactic Acid Calcium Phosphorus Magnesium AST ALT Lactate Dehydrogenase Total Bilirubin Direct Bilirubin CK-MB (CK-2) C-Reactive Protein NT-Pro-B Natriuret Pep Total Protein Albumin Arterial Blood Glucose Urine WBC (Auto) Urine Creatinine 01/20/20 01/20/20 01/20/20 14:55 18:14 21:35 WBC RBC Hgb Hct MCHC RDW MCV MCH Lymph % (Auto) [place] % (Auto) [place] # Eos # Lymph # (Auto) [place] # (Auto) Eos # (Auto) Seg Neutrophils % Seg Neuts % (Manual) Baso # (Auto) Lymphocytes % (Manual) Monocytes % (Manual) Eosinophils % (Manual) Basophils % (Manual) Seg Neutrophils # Seg Neutrophils # Man Lymphocytes # (Manual) Monocytes # (Manual) Eosinophils # (Manual) Nucleated RBC % Basophils # (Manual) PT 20.4 H INR 1.72 H APTT 40.6 H Heparin Anti-Xa Level > 2.00 H ABG pH POC ABG pO2 ABG pO2 ABG HCO3 ABG O2 Saturation ABG Base Excess POC ABG pCO2 ABG Hemoglobin ABG Oxyhemoglobin ABG Chloride ABG Glucose Oxyhemoglobin Sodium Potassium Chloride Carbon Dioxide BUN Creatinine Glucose POC Glucose 150 H Lactic Acid Calcium Phosphorus Magnesium AST ALT Lactate Dehydrogenase Total Bilirubin Direct Bilirubin CK-MB (CK-2) C-Reactive Protein NT-Pro-B Natriuret Pep Total Protein Albumin Arterial Blood Glucose Urine WBC (Auto) Urine Creatinine 01/21/20 01/21/20 01/21/20 00:30 05:47 05:59 WBC RBC Hgb Hct MCHC RDW MCV MCH Lymph % (Auto) [place] % (Auto) [place] # Eos # Lymph # (Auto) [place] # (Auto) Eos # (Auto) Seg Neutrophils % Seg Neuts % (Manual) Baso # (Auto) Lymphocytes % (Manual) Monocytes % (Manual) Eosinophils % (Manual) Basophils % (Manual) Seg Neutrophils # Seg Neutrophils # Man Lymphocytes # (Manual) Monocytes # (Manual) Eosinophils # (Manual) Nucleated RBC % Basophils # (Manual) PT INR APTT Heparin Anti-Xa Level 1.93 H ABG pH POC ABG pO2 ABG pO2 ABG HCO3 ABG O2 Saturation ABG Base Excess POC ABG pCO2 ABG Hemoglobin ABG Oxyhemoglobin ABG Chloride ABG Glucose Oxyhemoglobin Sodium Potassium Chloride Carbon Dioxide BUN Creatinine Glucose POC Glucose 126 H 148 H Lactic Acid Calcium Phosphorus Magnesium AST ALT Lactate Dehydrogenase Total Bilirubin Direct Bilirubin CK-MB (CK-2) C-Reactive Protein NT-Pro-B Natriuret Pep Total Protein Albumin Arterial Blood Glucose Urine WBC (Auto) Urine Creatinine 01/21/20 01/21/20 01/21/20 12:32 18:20 23:54 WBC RBC Hgb Hct MCHC RDW MCV MCH Lymph % (Auto) [place] % (Auto) [place] # Eos # Lymph # (Auto) [place] # (Auto) Eos # (Auto) Seg Neutrophils % Seg Neuts % (Manual) Baso # (Auto) Lymphocytes % (Manual) Monocytes % (Manual) Eosinophils % (Manual) Basophils % (Manual) Seg Neutrophils # Seg Neutrophils # Man Lymphocytes # (Manual) Monocytes # (Manual) Eosinophils # (Manual) Nucleated RBC % Basophils # (Manual) PT INR APTT Heparin Anti-Xa Level 1.28 H ABG pH POC ABG pO2 ABG pO2 ABG HCO3 ABG O2 Saturation ABG Base Excess POC ABG pCO2 ABG Hemoglobin ABG Oxyhemoglobin ABG Chloride ABG Glucose Oxyhemoglobin Sodium Potassium Chloride Carbon Dioxide BUN Creatinine Glucose POC Glucose 112 H 146 H Lactic Acid Calcium Phosphorus Magnesium AST ALT Lactate Dehydrogenase Total Bilirubin Direct Bilirubin CK-MB (CK-2) C-Reactive Protein NT-Pro-B Natriuret Pep Total Protein Albumin Arterial Blood Glucose Urine WBC (Auto) Urine Creatinine 01/22/20 01/22/20 01/22/20 04:45 04:45 05:48 WBC RBC Hgb 9.3 L Hct 29.0 L MCHC RDW MCV MCH Lymph % (Auto) [place] % (Auto) [place] # Eos # Lymph # (Auto) [place] # (Auto) Eos # (Auto) Seg Neutrophils % Seg Neuts % (Manual) Baso # (Auto) Lymphocytes % (Manual) Monocytes % (Manual) Eosinophils % (Manual) Basophils % (Manual) Seg Neutrophils # Seg Neutrophils # Man Lymphocytes # (Manual) Monocytes # (Manual) Eosinophils # (Manual) Nucleated RBC % Basophils # (Manual) PT INR APTT Heparin Anti-Xa Level 1.34 H ABG pH POC ABG pO2 ABG pO2 ABG HCO3 ABG O2 Saturation ABG Base Excess POC ABG pCO2 ABG Hemoglobin ABG Oxyhemoglobin ABG Chloride ABG Glucose Oxyhemoglobin Sodium Potassium Chloride Carbon Dioxide BUN Creatinine Glucose POC Glucose 142 H Lactic Acid Calcium Phosphorus Magnesium AST ALT Lactate Dehydrogenase Total Bilirubin Direct Bilirubin CK-MB (CK-2) C-Reactive Protein NT-Pro-B Natriuret Pep Total Protein Albumin Arterial Blood Glucose Urine WBC (Auto) Urine Creatinine 01/22/20 01/22/20 01/22/20 08:09 08:22 09:58 WBC RBC Hgb Hct MCHC RDW MCV MCH Lymph % (Auto) [place] % (Auto) [place] # Eos # Lymph # (Auto) [place] # (Auto) Eos # (Auto) Seg Neutrophils % Seg Neuts % (Manual) Baso # (Auto) Lymphocytes % (Manual) Monocytes % (Manual) Eosinophils % (Manual) Basophils % (Manual) Seg Neutrophils # Seg Neutrophils # Man Lymphocytes # (Manual) Monocytes # (Manual) Eosinophils # (Manual) Nucleated RBC % Basophils # (Manual) PT 16.9 H INR 1.34 H APTT Heparin Anti-Xa Level ABG pH POC ABG pO2 ABG pO2 ABG HCO3 ABG O2 Saturation ABG Base Excess POC ABG pCO2 ABG Hemoglobin ABG Oxyhemoglobin ABG Chloride ABG Glucose Oxyhemoglobin Sodium Potassium Chloride 97.8 L Carbon Dioxide BUN 29 H Creatinine Glucose 128 H POC Glucose 131 H Lactic Acid Calcium Phosphorus Magnesium AST ALT Lactate Dehydrogenase Total Bilirubin Direct Bilirubin CK-MB (CK-2) C-Reactive Protein NT-Pro-B Natriuret Pep Total Protein Albumin Arterial Blood Glucose Urine WBC (Auto) Urine Creatinine 01/22/20 01/22/20 01/22/20 12:44 16:13 18:18 WBC RBC Hgb Hct MCHC RDW MCV MCH Lymph % (Auto) [place] % (Auto) [place] # Eos # Lymph # (Auto) [place] # (Auto) Eos # (Auto) Seg Neutrophils % Seg Neuts % (Manual) Baso # (Auto) Lymphocytes % (Manual) Monocytes % (Manual) Eosinophils % (Manual) Basophils % (Manual) Seg Neutrophils # Seg Neutrophils # Man Lymphocytes # (Manual) Monocytes # (Manual) Eosinophils # (Manual) Nucleated RBC % Basophils # (Manual) PT INR APTT Heparin Anti-Xa Level ABG pH POC ABG pO2 ABG pO2 ABG HCO3 ABG O2 Saturation ABG Base Excess POC ABG pCO2 ABG Hemoglobin ABG Oxyhemoglobin ABG Chloride ABG Glucose Oxyhemoglobin Sodium Potassium Chloride Carbon Dioxide BUN Creatinine Glucose POC Glucose 156 H 133 H 155 H Lactic Acid Calcium Phosphorus Magnesium AST ALT Lactate Dehydrogenase Total Bilirubin Direct Bilirubin CK-MB (CK-2) C-Reactive Protein NT-Pro-B Natriuret Pep Total Protein Albumin Arterial Blood Glucose Urine WBC (Auto) Urine Creatinine 01/22/20 01/23/20 01/23/20 23:22 05:37 12:59 WBC RBC Hgb Hct MCHC RDW MCV MCH Lymph % (Auto) [place] % (Auto) [place] # Eos # Lymph # (Auto) [place] # (Auto) Eos # (Auto) Seg Neutrophils % Seg Neuts % (Manual) Baso # (Auto) Lymphocytes % (Manual) Monocytes % (Manual) Eosinophils % (Manual) Basophils % (Manual) Seg Neutrophils # Seg Neutrophils # Man Lymphocytes # (Manual) Monocytes # (Manual) Eosinophils # (Manual) Nucleated RBC % Basophils # (Manual) PT INR APTT Heparin Anti-Xa Level ABG pH POC ABG pO2 ABG pO2 ABG HCO3 ABG O2 Saturation ABG Base Excess POC ABG pCO2 ABG Hemoglobin ABG Oxyhemoglobin ABG Chloride ABG Glucose Oxyhemoglobin Sodium Potassium Chloride Carbon Dioxide BUN Creatinine Glucose POC Glucose 148 H 163 H 175 H Lactic Acid Calcium Phosphorus Magnesium AST ALT Lactate Dehydrogenase Total Bilirubin Direct Bilirubin CK-MB (CK-2) C-Reactive Protein NT-Pro-B Natriuret Pep Total Protein Albumin Arterial Blood Glucose Urine WBC (Auto) Urine Creatinine 01/23/20 01/23/20 01/24/20 17:28 23:56 04:30 WBC RBC 3.46 L Hgb 8.8 L Hct 27.8 L MCHC RDW 18.2 H MCV 81 L MCH 25 L Lymph % (Auto) [place] % (Auto) 7.8 H [place] # Eos # Lymph # (Auto) [place] # (Auto) Eos # (Auto) Seg Neutrophils % Seg Neuts % (Manual) Baso # (Auto) Lymphocytes % (Manual) Monocytes % (Manual) Eosinophils % (Manual) Basophils % (Manual) Seg Neutrophils # Seg Neutrophils # Man Lymphocytes # (Manual) Monocytes # (Manual) Eosinophils # (Manual) Nucleated RBC % Basophils # (Manual) PT INR APTT Heparin Anti-Xa Level ABG pH POC ABG pO2 ABG pO2 ABG HCO3 ABG O2 Saturation ABG Base Excess POC ABG pCO2 ABG Hemoglobin ABG Oxyhemoglobin ABG Chloride ABG Glucose Oxyhemoglobin Sodium Potassium Chloride Carbon Dioxide BUN Creatinine Glucose POC Glucose 165 H 177 H Lactic Acid Calcium Phosphorus Magnesium AST ALT Lactate Dehydrogenase Total Bilirubin Direct Bilirubin CK-MB (CK-2) C-Reactive Protein NT-Pro-B Natriuret Pep Total Protein Albumin Arterial Blood Glucose Urine WBC (Auto) Urine Creatinine 01/24/20 01/24/20 01/24/20 04:30 07:18 12:06 WBC RBC Hgb Hct MCHC RDW MCV MCH Lymph % (Auto) [place] % (Auto) [place] # Eos # Lymph # (Auto) [place] # (Auto) Eos # (Auto) Seg Neutrophils % Seg Neuts % (Manual) Baso # (Auto) Lymphocytes % (Manual) Monocytes % (Manual) Eosinophils % (Manual) Basophils % (Manual) Seg Neutrophils # Seg Neutrophils # Man Lymphocytes # (Manual) Monocytes # (Manual) Eosinophils # (Manual) Nucleated RBC % Basophils # (Manual) PT INR APTT Heparin Anti-Xa Level ABG pH POC ABG pO2 ABG pO2 ABG HCO3 ABG O2 Saturation ABG Base Excess POC ABG pCO2 ABG Hemoglobin ABG Oxyhemoglobin ABG Chloride ABG Glucose Oxyhemoglobin Sodium Potassium Chloride 97.9 L Carbon Dioxide BUN 31 H Creatinine Glucose 146 H POC Glucose 151 H 133 H Lactic Acid Calcium Phosphorus Magnesium AST ALT Lactate Dehydrogenase Total Bilirubin Direct Bilirubin CK-MB (CK-2) C-Reactive Protein NT-Pro-B Natriuret Pep Total Protein Albumin Arterial Blood Glucose Urine WBC (Auto) Urine Creatinine 01/24/20 01/25/20 01/25/20 17:36 00:08 04:25 WBC RBC 3.50 L Hgb 8.7 L Hct 27.9 L MCHC 31 L RDW 18.2 H MCV 80 L MCH 25 L Lymph % (Auto) [place] % (Auto) 8.5 H [place] # Eos # Lymph # (Auto) [place] # (Auto) Eos # (Auto) Seg Neutrophils % Seg Neuts % (Manual) Baso # (Auto) Lymphocytes % (Manual) Monocytes % (Manual) Eosinophils % (Manual) Basophils % (Manual) Seg Neutrophils # Seg Neutrophils # Man Lymphocytes # (Manual) Monocytes # (Manual) Eosinophils # (Manual) Nucleated RBC % Basophils # (Manual) PT INR APTT Heparin Anti-Xa Level ABG pH POC ABG pO2 ABG pO2 ABG HCO3 ABG O2 Saturation ABG Base Excess POC ABG pCO2 ABG Hemoglobin ABG Oxyhemoglobin ABG Chloride ABG Glucose Oxyhemoglobin Sodium Potassium Chloride Carbon Dioxide BUN Creatinine Glucose POC Glucose 133 H 129 H Lactic Acid Calcium Phosphorus Magnesium AST ALT Lactate Dehydrogenase Total Bilirubin Direct Bilirubin CK-MB (CK-2) C-Reactive Protein NT-Pro-B Natriuret Pep Total Protein Albumin Arterial Blood Glucose Urine WBC (Auto) Urine Creatinine 01/25/20 01/25/20 01/25/20 04:25 05:38 11:52 WBC RBC Hgb Hct MCHC RDW MCV MCH Lymph % (Auto) [place] % (Auto) [place] # Eos # Lymph # (Auto) [place] # (Auto) Eos # (Auto) Seg Neutrophils % Seg Neuts % (Manual) Baso # (Auto) Lymphocytes % (Manual) Monocytes % (Manual) Eosinophils % (Manual) Basophils % (Manual) Seg Neutrophils # Seg Neutrophils # Man Lymphocytes # (Manual) Monocytes # (Manual) Eosinophils # (Manual) Nucleated RBC % Basophils # (Manual) PT INR APTT Heparin Anti-Xa Level ABG pH POC ABG pO2 ABG pO2 ABG HCO3 ABG O2 Saturation ABG Base Excess POC ABG pCO2 ABG Hemoglobin ABG Oxyhemoglobin ABG Chloride ABG Glucose Oxyhemoglobin Sodium Potassium Chloride Carbon Dioxide BUN 30 H Creatinine Glucose 134 H POC Glucose 129 H 134 H Lactic Acid Calcium Phosphorus Magnesium AST ALT Lactate Dehydrogenase Total Bilirubin Direct Bilirubin CK-MB (CK-2) C-Reactive Protein NT-Pro-B Natriuret Pep Total Protein Albumin Arterial Blood Glucose Urine WBC (Auto) Urine Creatinine 01/25/20 01/25/20 01/26/20 17:13 21:02 00:59 WBC RBC Hgb Hct MCHC RDW MCV MCH Lymph % (Auto) [place] % (Auto) [place] # Eos # Lymph # (Auto) [place] # (Auto) Eos # (Auto) Seg Neutrophils % Seg Neuts % (Manual) Baso # (Auto) Lymphocytes % (Manual) Monocytes % (Manual) Eosinophils % (Manual) Basophils % (Manual) Seg Neutrophils # Seg Neutrophils # Man Lymphocytes # (Manual) Monocytes # (Manual) Eosinophils # (Manual) Nucleated RBC % Basophils # (Manual) PT INR APTT Heparin Anti-Xa Level ABG pH POC ABG pO2 ABG pO2 57.5 L ABG HCO3 31.7 H ABG O2 Saturation 90.3 L ABG Base Excess 6.6 H POC ABG pCO2 ABG Hemoglobin 13.0 L ABG Oxyhemoglobin ABG Chloride ABG Glucose Oxyhemoglobin 87.5 L Sodium Potassium Chloride Carbon Dioxide BUN Creatinine Glucose POC Glucose 124 H 196 H Lactic Acid Calcium Phosphorus Magnesium AST ALT Lactate Dehydrogenase Total Bilirubin Direct Bilirubin CK-MB (CK-2) C-Reactive Protein NT-Pro-B Natriuret Pep Total Protein Albumin Arterial Blood Glucose Urine WBC (Auto) Urine Creatinine 01/26/20 01/26/20 01/26/20 03:20 05:46 12:46 WBC RBC Hgb 9.2 L Hct 29.4 L MCHC RDW MCV MCH Lymph % (Auto) [place] % (Auto) [place] # Eos # Lymph # (Auto) [place] # (Auto) Eos # (Auto) Seg Neutrophils % Seg Neuts % (Manual) Baso # (Auto) Lymphocytes % (Manual) Monocytes % (Manual) Eosinophils % (Manual) Basophils % (Manual) Seg Neutrophils # Seg Neutrophils # Man Lymphocytes # (Manual) Monocytes # (Manual) Eosinophils # (Manual) Nucleated RBC % Basophils # (Manual) PT INR APTT Heparin Anti-Xa Level ABG pH POC ABG pO2 ABG pO2 ABG HCO3 ABG O2 Saturation ABG Base Excess POC ABG pCO2 ABG Hemoglobin ABG Oxyhemoglobin ABG Chloride ABG Glucose Oxyhemoglobin Sodium Potassium Chloride Carbon Dioxide BUN Creatinine Glucose POC Glucose 141 H 122 H Lactic Acid Calcium Phosphorus Magnesium AST ALT Lactate Dehydrogenase Total Bilirubin Direct Bilirubin CK-MB (CK-2) C-Reactive Protein NT-Pro-B Natriuret Pep Total Protein Albumin Arterial Blood Glucose Urine WBC (Auto) Urine Creatinine 01/26/20 01/26/20 01/27/20 18:03 23:55 04:47 WBC RBC Hgb Hct MCHC RDW MCV MCH Lymph % (Auto) [place] % (Auto) [place] # Eos # Lymph # (Auto) [place] # (Auto) Eos # (Auto) Seg Neutrophils % Seg Neuts % (Manual) Baso # (Auto) Lymphocytes % (Manual) Monocytes % (Manual) Eosinophils % (Manual) Basophils % (Manual) Seg Neutrophils # Seg Neutrophils # Man Lymphocytes # (Manual) Monocytes # (Manual) Eosinophils # (Manual) Nucleated RBC % Basophils # (Manual) PT INR APTT Heparin Anti-Xa Level ABG pH POC ABG pO2 ABG pO2 ABG HCO3 ABG O2 Saturation ABG Base Excess POC ABG pCO2 ABG Hemoglobin ABG Oxyhemoglobin ABG Chloride ABG Glucose Oxyhemoglobin Sodium Potassium Chloride Carbon Dioxide BUN 30 H Creatinine 0.7 L Glucose 135 H POC Glucose 142 H 159 H Lactic Acid Calcium Phosphorus Magnesium AST ALT Lactate Dehydrogenase Total Bilirubin Direct Bilirubin CK-MB (CK-2) C-Reactive Protein NT-Pro-B Natriuret Pep Total Protein Albumin Arterial Blood Glucose Urine WBC (Auto) Urine Creatinine 01/27/20 01/27/20 01/27/20 05:43 12:06 17:16 WBC RBC Hgb Hct MCHC RDW MCV MCH Lymph % (Auto) [place] % (Auto) [place] # Eos # Lymph # (Auto) [place] # (Auto) Eos # (Auto) Seg Neutrophils % Seg Neuts % (Manual) Baso # (Auto) Lymphocytes % (Manual) Monocytes % (Manual) Eosinophils % (Manual) Basophils % (Manual) Seg Neutrophils # Seg Neutrophils # Man Lymphocytes # (Manual) Monocytes # (Manual) Eosinophils # (Manual) Nucleated RBC % Basophils # (Manual) PT INR APTT Heparin Anti-Xa Level ABG pH POC ABG pO2 ABG pO2 ABG HCO3 ABG O2 Saturation ABG Base Excess POC ABG pCO2 ABG Hemoglobin ABG Oxyhemoglobin ABG Chloride ABG Glucose Oxyhemoglobin Sodium Potassium Chloride Carbon Dioxide BUN Creatinine Glucose POC Glucose 143 H 142 H 128 H Lactic Acid Calcium Phosphorus Magnesium AST ALT Lactate Dehydrogenase Total Bilirubin Direct Bilirubin CK-MB (CK-2) C-Reactive Protein NT-Pro-B Natriuret Pep Total Protein Albumin Arterial Blood Glucose Urine WBC (Auto) Urine Creatinine 01/27/20 01/28/20 01/28/20 23:55 04:37 05:55 WBC RBC Hgb 9.4 L Hct 29.9 L MCHC RDW MCV MCH Lymph % (Auto) [place] % (Auto) [place] # Eos # Lymph # (Auto) [place] # (Auto) Eos # (Auto) Seg Neutrophils % Seg Neuts % (Manual) Baso # (Auto) Lymphocytes % (Manual) Monocytes % (Manual) Eosinophils % (Manual) Basophils % (Manual) Seg Neutrophils # Seg Neutrophils # Man Lymphocytes # (Manual) Monocytes # (Manual) Eosinophils # (Manual) Nucleated RBC % Basophils # (Manual) PT INR APTT Heparin Anti-Xa Level ABG pH POC ABG pO2 ABG pO2 ABG HCO3 ABG O2 Saturation ABG Base Excess POC ABG pCO2 ABG Hemoglobin ABG Oxyhemoglobin ABG Chloride ABG Glucose Oxyhemoglobin Sodium Potassium Chloride Carbon Dioxide BUN Creatinine Glucose POC Glucose 166 H 169 H Lactic Acid Calcium Phosphorus Magnesium AST ALT Lactate Dehydrogenase Total Bilirubin Direct Bilirubin CK-MB (CK-2) C-Reactive Protein NT-Pro-B Natriuret Pep Total Protein Albumin Arterial Blood Glucose Urine WBC (Auto) Urine Creatinine 01/28/20 01/28/20 01/28/20 11:58 17:26 23:46 WBC RBC Hgb Hct MCHC RDW MCV MCH Lymph % (Auto) [place] % (Auto) [place] # Eos # Lymph # (Auto) [place] # (Auto) Eos # (Auto) Seg Neutrophils % Seg Neuts % (Manual) Baso # (Auto) Lymphocytes % (Manual) Monocytes % (Manual) Eosinophils % (Manual) Basophils % (Manual) Seg Neutrophils # Seg Neutrophils # Man Lymphocytes # (Manual) Monocytes # (Manual) Eosinophils # (Manual) Nucleated RBC % Basophils # (Manual) PT INR APTT Heparin Anti-Xa Level ABG pH POC ABG pO2 ABG pO2 ABG HCO3 ABG O2 Saturation ABG Base Excess POC ABG pCO2 ABG Hemoglobin ABG Oxyhemoglobin ABG Chloride ABG Glucose Oxyhemoglobin Sodium Potassium Chloride Carbon Dioxide BUN Creatinine Glucose POC Glucose 130 H 126 H 150 H Lactic Acid Calcium Phosphorus Magnesium AST ALT Lactate Dehydrogenase Total Bilirubin Direct Bilirubin CK-MB (CK-2) C-Reactive Protein NT-Pro-B Natriuret Pep Total Protein Albumin Arterial Blood Glucose Urine WBC (Auto) Urine Creatinine 01/29/20 01/29/20 01/29/20 04:55 06:00 12:28 WBC RBC Hgb Hct MCHC RDW MCV MCH Lymph % (Auto) [place] % (Auto) [place] # Eos # Lymph # (Auto) [place] # (Auto) Eos # (Auto) Seg Neutrophils % Seg Neuts % (Manual) Baso # (Auto) Lymphocytes % (Manual) Monocytes % (Manual) Eosinophils % (Manual) Basophils % (Manual) Seg Neutrophils # Seg Neutrophils # Man Lymphocytes # (Manual) Monocytes # (Manual) Eosinophils # (Manual) Nucleated RBC % Basophils # (Manual) PT INR APTT Heparin Anti-Xa Level ABG pH POC ABG pO2 ABG pO2 ABG HCO3 ABG O2 Saturation ABG Base Excess POC ABG pCO2 ABG Hemoglobin ABG Oxyhemoglobin ABG Chloride ABG Glucose Oxyhemoglobin Sodium Potassium Chloride Carbon Dioxide 34 H BUN Creatinine 0.6 L Glucose 152 H POC Glucose 157 H 156 H Lactic Acid Calcium Phosphorus Magnesium AST ALT Lactate Dehydrogenase Total Bilirubin Direct Bilirubin CK-MB (CK-2) C-Reactive Protein NT-Pro-B Natriuret Pep Total Protein Albumin Arterial Blood Glucose Urine WBC (Auto) Urine Creatinine 01/29/20 01/30/20 01/30/20 19:06 00:29 05:39 WBC RBC Hgb Hct MCHC RDW MCV MCH Lymph % (Auto) [place] % (Auto) [place] # Eos # Lymph # (Auto) [place] # (Auto) Eos # (Auto) Seg Neutrophils % Seg Neuts % (Manual) Baso # (Auto) Lymphocytes % (Manual) Monocytes % (Manual) Eosinophils % (Manual) Basophils % (Manual) Seg Neutrophils # Seg Neutrophils # Man Lymphocytes # (Manual) Monocytes # (Manual) Eosinophils # (Manual) Nucleated RBC % Basophils # (Manual) PT INR APTT Heparin Anti-Xa Level ABG pH POC ABG pO2 ABG pO2 ABG HCO3 ABG O2 Saturation ABG Base Excess POC ABG pCO2 ABG Hemoglobin ABG Oxyhemoglobin ABG Chloride ABG Glucose Oxyhemoglobin Sodium Potassium Chloride Carbon Dioxide BUN Creatinine Glucose POC Glucose 152 H 132 H 159 H Lactic Acid Calcium Phosphorus Magnesium AST ALT Lactate Dehydrogenase Total Bilirubin Direct Bilirubin CK-MB (CK-2) C-Reactive Protein NT-Pro-B Natriuret Pep Total Protein Albumin Arterial Blood Glucose Urine WBC (Auto) Urine Creatinine 01/30/20 01/30/20 01/30/20 12:27 17:42 23:28 WBC RBC Hgb Hct MCHC RDW MCV MCH Lymph % (Auto) [place] % (Auto) [place] # Eos # Lymph # (Auto) [place] # (Auto) Eos # (Auto) Seg Neutrophils % Seg Neuts % (Manual) Baso # (Auto) Lymphocytes % (Manual) Monocytes % (Manual) Eosinophils % (Manual) Basophils % (Manual) Seg Neutrophils # Seg Neutrophils # Man Lymphocytes # (Manual) Monocytes # (Manual) Eosinophils # (Manual) Nucleated RBC % Basophils # (Manual) PT INR APTT Heparin Anti-Xa Level ABG pH POC ABG pO2 ABG pO2 ABG HCO3 ABG O2 Saturation ABG Base Excess POC ABG pCO2 ABG Hemoglobin ABG Oxyhemoglobin ABG Chloride ABG Glucose Oxyhemoglobin Sodium Potassium Chloride Carbon Dioxide BUN Creatinine Glucose POC Glucose 151 H 144 H 164 H Lactic Acid Calcium Phosphorus Magnesium AST ALT Lactate Dehydrogenase Total Bilirubin Direct Bilirubin CK-MB (CK-2) C-Reactive Protein NT-Pro-B Natriuret Pep Total Protein Albumin Arterial Blood Glucose Urine WBC (Auto) Urine Creatinine 01/31/20 01/31/20 01/31/20 05:51 11:51 18:06 WBC RBC Hgb Hct MCHC RDW MCV MCH Lymph % (Auto) [place] % (Auto) [place] # Eos # Lymph # (Auto) [place] # (Auto) Eos # (Auto) Seg Neutrophils % Seg Neuts % (Manual) Baso # (Auto) Lymphocytes % (Manual) Monocytes % (Manual) Eosinophils % (Manual) Basophils % (Manual) Seg Neutrophils # Seg Neutrophils # Man Lymphocytes # (Manual) Monocytes # (Manual) Eosinophils # (Manual) Nucleated RBC % Basophils # (Manual) PT INR APTT Heparin Anti-Xa Level ABG pH POC ABG pO2 ABG pO2 ABG HCO3 ABG O2 Saturation ABG Base Excess POC ABG pCO2 ABG Hemoglobin ABG Oxyhemoglobin ABG Chloride ABG Glucose Oxyhemoglobin Sodium Potassium Chloride Carbon Dioxide BUN Creatinine Glucose POC Glucose 131 H 167 H 210 H Lactic Acid Calcium Phosphorus Magnesium AST ALT Lactate Dehydrogenase Total Bilirubin Direct Bilirubin CK-MB (CK-2) C-Reactive Protein NT-Pro-B Natriuret Pep Total Protein Albumin Arterial Blood Glucose Urine WBC (Auto) Urine Creatinine 01/31/20 01/31/20 02/01/20 19:24 Unknown 00:34 WBC RBC Hgb Hct MCHC RDW MCV MCH Lymph % (Auto) [place] % (Auto) [place] # Eos # Lymph # (Auto) [place] # (Auto) Eos # (Auto) Seg Neutrophils % Seg Neuts % (Manual) Baso # (Auto) Lymphocytes % (Manual) Monocytes % (Manual) Eosinophils % (Manual) Basophils % (Manual) Seg Neutrophils # Seg Neutrophils # Man Lymphocytes # (Manual) Monocytes # (Manual) Eosinophils # (Manual) Nucleated RBC % Basophils # (Manual) PT INR APTT Heparin Anti-Xa Level ABG pH POC ABG pO2 ABG pO2 ABG HCO3 ABG O2 Saturation ABG Base Excess POC ABG pCO2 ABG Hemoglobin ABG Oxyhemoglobin ABG Chloride ABG Glucose Oxyhemoglobin Sodium Potassium Chloride 95.3 L Carbon Dioxide 33 H BUN 36 H Creatinine Glucose 187 H POC Glucose 116 H Lactic Acid Calcium Phosphorus Magnesium AST ALT Lactate Dehydrogenase Total Bilirubin Direct Bilirubin CK-MB (CK-2) C-Reactive Protein NT-Pro-B Natriuret Pep Total Protein Albumin Arterial Blood Glucose Urine WBC (Auto) Urine Creatinine 57.4 H 02/01/20 02/01/20 02/01/20 05:24 10:40 12:29 WBC RBC Hgb Hct MCHC RDW MCV MCH Lymph % (Auto) [place] % (Auto) [place] # Eos # Lymph # (Auto) [place] # (Auto) Eos # (Auto) Seg Neutrophils % Seg Neuts % (Manual) Baso # (Auto) Lymphocytes % (Manual) Monocytes % (Manual) Eosinophils % (Manual) Basophils % (Manual) Seg Neutrophils # Seg Neutrophils # Man Lymphocytes # (Manual) Monocytes # (Manual) Eosinophils # (Manual) Nucleated RBC % Basophils # (Manual) PT INR APTT Heparin Anti-Xa Level ABG pH POC ABG pO2 ABG pO2 ABG HCO3 ABG O2 Saturation ABG Base Excess POC ABG pCO2 ABG Hemoglobin ABG Oxyhemoglobin ABG Chloride ABG Glucose Oxyhemoglobin Sodium Potassium Chloride Carbon Dioxide BUN Creatinine Glucose POC Glucose 142 H 165 H 151 H Lactic Acid Calcium Phosphorus Magnesium AST ALT Lactate Dehydrogenase Total Bilirubin Direct Bilirubin CK-MB (CK-2) C-Reactive Protein NT-Pro-B Natriuret Pep Total Protein Albumin Arterial Blood Glucose Urine WBC (Auto) Urine Creatinine 02/01/20 02/01/20 02/02/20 17:16 23:23 06:36 WBC RBC Hgb Hct MCHC RDW MCV MCH Lymph % (Auto) [place] % (Auto) [place] # Eos # Lymph # (Auto) [place] # (Auto) Eos # (Auto) Seg Neutrophils % Seg Neuts % (Manual) Baso # (Auto) Lymphocytes % (Manual) Monocytes % (Manual) Eosinophils % (Manual) Basophils % (Manual) Seg Neutrophils # Seg Neutrophils # Man Lymphocytes # (Manual) Monocytes # (Manual) Eosinophils # (Manual) Nucleated RBC % Basophils # (Manual) PT INR APTT Heparin Anti-Xa Level ABG pH POC ABG pO2 ABG pO2 ABG HCO3 ABG O2 Saturation ABG Base Excess POC ABG pCO2 ABG Hemoglobin ABG Oxyhemoglobin ABG Chloride ABG Glucose Oxyhemoglobin Sodium Potassium Chloride Carbon Dioxide BUN Creatinine Glucose POC Glucose 137 H 145 H 181 H Lactic Acid Calcium Phosphorus Magnesium AST ALT Lactate Dehydrogenase Total Bilirubin Direct Bilirubin CK-MB (CK-2) C-Reactive Protein NT-Pro-B Natriuret Pep Total Protein Albumin Arterial Blood Glucose Urine WBC (Auto) Urine Creatinine 02/02/20 02/02/20 02/02/20 10:01 12:05 17:54 WBC RBC Hgb Hct MCHC RDW MCV MCH Lymph % (Auto) [place] % (Auto) [place] # Eos # Lymph # (Auto) [place] # (Auto) Eos # (Auto) Seg Neutrophils % Seg Neuts % (Manual) Baso # (Auto) Lymphocytes % (Manual) Monocytes % (Manual) Eosinophils % (Manual) Basophils % (Manual) Seg Neutrophils # Seg Neutrophils # Man Lymphocytes # (Manual) Monocytes # (Manual) Eosinophils # (Manual) Nucleated RBC % Basophils # (Manual) PT INR APTT Heparin Anti-Xa Level ABG pH POC ABG pO2 ABG pO2 ABG HCO3 ABG O2 Saturation ABG Base Excess POC ABG pCO2 ABG Hemoglobin ABG Oxyhemoglobin ABG Chloride ABG Glucose Oxyhemoglobin Sodium Potassium Chloride 95.3 L Carbon Dioxide BUN 44 H Creatinine Glucose 234 H POC Glucose 184 H 127 H Lactic Acid Calcium Phosphorus Magnesium AST 363 H ALT 457 H Lactate Dehydrogenase Total Bilirubin Direct Bilirubin CK-MB (CK-2) C-Reactive Protein NT-Pro-B Natriuret Pep Total Protein Albumin 3.0 L Arterial Blood Glucose Urine WBC (Auto) Urine Creatinine 02/02/20 02/03/20 02/03/20 23:47 05:32 07:04 WBC 13.0 H RBC Hgb 9.5 L Hct 30.8 L MCHC 31 L RDW 19.6 H MCV 81 L MCH 25 L Lymph % (Auto) [place] % (Auto) 9.4 H [place] # Eos # Lymph # (Auto) [place] # (Auto) 1.2 H Eos # (Auto) Seg Neutrophils % 72.3 H Seg Neuts % (Manual) Baso # (Auto) Lymphocytes % (Manual) Monocytes % (Manual) Eosinophils % (Manual) Basophils % (Manual) Seg Neutrophils # 9.4 H Seg Neutrophils # Man Lymphocytes # (Manual) Monocytes # (Manual) Eosinophils # (Manual) Nucleated RBC % Basophils # (Manual) PT INR APTT Heparin Anti-Xa Level ABG pH POC ABG pO2 ABG pO2 ABG HCO3 ABG O2 Saturation ABG Base Excess POC ABG pCO2 ABG Hemoglobin ABG Oxyhemoglobin ABG Chloride ABG Glucose Oxyhemoglobin Sodium Potassium Chloride Carbon Dioxide BUN Creatinine Glucose POC Glucose 124 H 129 H Lactic Acid Calcium Phosphorus Magnesium AST ALT Lactate Dehydrogenase Total Bilirubin Direct Bilirubin CK-MB (CK-2) C-Reactive Protein NT-Pro-B Natriuret Pep Total Protein Albumin Arterial Blood Glucose Urine WBC (Auto) Urine Creatinine 02/03/20 02/03/20 02/03/20 07:04 11:32 12:49 WBC RBC Hgb Hct MCHC RDW MCV MCH Lymph % (Auto) [place] % (Auto) [place] # Eos # Lymph # (Auto) [place] # (Auto) Eos # (Auto) Seg Neutrophils % Seg Neuts % (Manual) Baso # (Auto) Lymphocytes % (Manual) Monocytes % (Manual) Eosinophils % (Manual) Basophils % (Manual) Seg Neutrophils # Seg Neutrophils # Man Lymphocytes # (Manual) Monocytes # (Manual) Eosinophils # (Manual) Nucleated RBC % Basophils # (Manual) PT INR APTT Heparin Anti-Xa Level ABG pH POC ABG pO2 ABG pO2 ABG HCO3 ABG O2 Saturation ABG Base Excess POC ABG pCO2 ABG Hemoglobin ABG Oxyhemoglobin ABG Chloride ABG Glucose Oxyhemoglobin Sodium Potassium Chloride 97.9 L Carbon Dioxide 33 H BUN 39 H Creatinine Glucose 119 H POC Glucose 138 H Lactic Acid Calcium Phosphorus Magnesium 2.60 H AST ALT Lactate Dehydrogenase Total Bilirubin Direct Bilirubin CK-MB (CK-2) C-Reactive Protein NT-Pro-B Natriuret Pep Total Protein Albumin Arterial Blood Glucose Urine WBC (Auto) Urine Creatinine 02/03/20 02/04/20 02/04/20 18:28 16:24 16:24 WBC RBC 3.38 L Hgb 8.6 L Hct 26.9 L MCHC RDW 19.5 H MCV 80 L MCH 26 L Lymph % (Auto) [place] % (Auto) [place] # Eos # Lymph # (Auto) [place] # (Auto) Eos # (Auto) Seg Neutrophils % Seg Neuts % (Manual) Baso # (Auto) Lymphocytes % (Manual) Monocytes % (Manual) Eosinophils % (Manual) Basophils % (Manual) Seg Neutrophils # Seg Neutrophils # Man Lymphocytes # (Manual) Monocytes # (Manual) Eosinophils # (Manual) Nucleated RBC % Basophils # (Manual) PT INR APTT Heparin Anti-Xa Level ABG pH POC ABG pO2 ABG pO2 ABG HCO3 ABG O2 Saturation ABG Base Excess POC ABG pCO2 ABG Hemoglobin ABG Oxyhemoglobin ABG Chloride ABG Glucose Oxyhemoglobin Sodium Potassium 3.4 L Chloride Carbon Dioxide 31 H BUN 37 H Creatinine Glucose 70 L POC Glucose 118 H Lactic Acid Calcium Phosphorus Magnesium AST 169 H ALT 394 H Lactate Dehydrogenase Total Bilirubin 1.50 H Direct Bilirubin CK-MB (CK-2) C-Reactive Protein NT-Pro-B Natriuret Pep Total Protein Albumin 2.9 L Arterial Blood Glucose Urine WBC (Auto) Urine Creatinine 02/05/20 02/05/20 02/05/20 00:41 06:37 17:14 WBC RBC Hgb Hct MCHC RDW MCV MCH Lymph % (Auto) [place] % (Auto) [place] # Eos # Lymph # (Auto) [place] # (Auto) Eos # (Auto) Seg Neutrophils % Seg Neuts % (Manual) Baso # (Auto) Lymphocytes % (Manual) Monocytes % (Manual) Eosinophils % (Manual) Basophils % (Manual) Seg Neutrophils # Seg Neutrophils # Man Lymphocytes # (Manual) Monocytes # (Manual) Eosinophils # (Manual) Nucleated RBC % Basophils # (Manual) PT INR APTT Heparin Anti-Xa Level ABG pH POC ABG pO2 ABG pO2 ABG HCO3 ABG O2 Saturation ABG Base Excess POC ABG pCO2 ABG Hemoglobin ABG Oxyhemoglobin ABG Chloride ABG Glucose Oxyhemoglobin Sodium Potassium 3.1 L Chloride Carbon Dioxide 35 H BUN 32 H Creatinine 0.7 L Glucose POC Glucose 69 L 127 H Lactic Acid Calcium Phosphorus Magnesium AST 134 H ALT 352 H Lactate Dehydrogenase Total Bilirubin 1.60 H Direct Bilirubin CK-MB (CK-2) C-Reactive Protein NT-Pro-B Natriuret Pep Total Protein Albumin 2.9 L Arterial Blood Glucose Urine WBC (Auto) Urine Creatinine 02/05/20 02/06/20 02/06/20 23:43 05:32 08:01 WBC RBC Hgb Hct MCHC RDW MCV MCH Lymph % (Auto) [place] % (Auto) [place] # Eos # Lymph # (Auto) [place] # (Auto) Eos # (Auto) Seg Neutrophils % Seg Neuts % (Manual) Baso # (Auto) Lymphocytes % (Manual) Monocytes % (Manual) Eosinophils % (Manual) Basophils % (Manual) Seg Neutrophils # Seg Neutrophils # Man Lymphocytes # (Manual) Monocytes # (Manual) Eosinophils # (Manual) Nucleated RBC % Basophils # (Manual) PT INR APTT Heparin Anti-Xa Level ABG pH POC ABG pO2 ABG pO2 ABG HCO3 ABG O2 Saturation ABG Base Excess POC ABG pCO2 ABG Hemoglobin ABG Oxyhemoglobin ABG Chloride ABG Glucose Oxyhemoglobin Sodium Potassium Chloride Carbon Dioxide BUN 40 H Creatinine Glucose 132 H POC Glucose 129 H 131 H Lactic Acid Calcium Phosphorus Magnesium AST ALT Lactate Dehydrogenase Total Bilirubin Direct Bilirubin CK-MB (CK-2) C-Reactive Protein NT-Pro-B Natriuret Pep Total Protein Albumin Arterial Blood Glucose Urine WBC (Auto) Urine Creatinine 02/06/20 02/06/20 02/06/20 11:51 16:28 17:32 WBC RBC Hgb Hct MCHC RDW MCV MCH Lymph % (Auto) [place] % (Auto) [place] # Eos # Lymph # (Auto) [place] # (Auto) Eos # (Auto) Seg Neutrophils % Seg Neuts % (Manual) Baso # (Auto) Lymphocytes % (Manual) Monocytes % (Manual) Eosinophils % (Manual) Basophils % (Manual) Seg Neutrophils # Seg Neutrophils # Man Lymphocytes # (Manual) Monocytes # (Manual) Eosinophils # (Manual) Nucleated RBC % Basophils # (Manual) PT INR APTT Heparin Anti-Xa Level ABG pH POC ABG pO2 ABG pO2 ABG HCO3 ABG O2 Saturation ABG Base Excess POC ABG pCO2 ABG Hemoglobin ABG Oxyhemoglobin ABG Chloride ABG Glucose Oxyhemoglobin Sodium Potassium Chloride Carbon Dioxide BUN Creatinine Glucose POC Glucose 167 H 129 H Lactic Acid Calcium Phosphorus Magnesium AST 824 H ALT 948 H Lactate Dehydrogenase Total Bilirubin 1.70 H Direct Bilirubin 1.2 H CK-MB (CK-2) C-Reactive Protein NT-Pro-B Natriuret Pep Total Protein Albumin 2.9 L Arterial Blood Glucose Urine WBC (Auto) Urine Creatinine 02/07/20 02/07/20 02/07/20 00:11 04:57 04:57 WBC RBC Hgb 9.2 L Hct 29.7 L MCHC 31 L RDW 20.2 H MCV 80 L MCH 25 L Lymph % (Auto) [place] % (Auto) [place] # Eos # Lymph # (Auto) [place] # (Auto) Eos # (Auto) Seg Neutrophils % Seg Neuts % (Manual) Baso # (Auto) Lymphocytes % (Manual) Monocytes % (Manual) Eosinophils % (Manual) Basophils % (Manual) Seg Neutrophils # Seg Neutrophils # Man Lymphocytes # (Manual) Monocytes # (Manual) Eosinophils # (Manual) Nucleated RBC % Basophils # (Manual) PT INR APTT Heparin Anti-Xa Level ABG pH POC ABG pO2 ABG pO2 ABG HCO3 ABG O2 Saturation ABG Base Excess POC ABG pCO2 ABG Hemoglobin ABG Oxyhemoglobin ABG Chloride ABG Glucose Oxyhemoglobin Sodium Potassium 3.4 L D Chloride Carbon Dioxide 32 H BUN 39 H Creatinine Glucose 106 H POC Glucose 121 H Lactic Acid Calcium Phosphorus Magnesium AST ALT Lactate Dehydrogenase Total Bilirubin Direct Bilirubin CK-MB (CK-2) C-Reactive Protein NT-Pro-B Natriuret Pep Total Protein Albumin Arterial Blood Glucose Urine WBC (Auto) Urine Creatinine 02/07/20 02/07/20 02/07/20 15:03 15:03 17:11 WBC RBC Hgb Hct MCHC RDW MCV MCH Lymph % (Auto) [place] % (Auto) [place] # Eos # Lymph # (Auto) [place] # (Auto) Eos # (Auto) Seg Neutrophils % Seg Neuts % (Manual) Baso # (Auto) Lymphocytes % (Manual) Monocytes % (Manual) Eosinophils % (Manual) Basophils % (Manual) Seg Neutrophils # Seg Neutrophils # Man Lymphocytes # (Manual) Monocytes # (Manual) Eosinophils # (Manual) Nucleated RBC % Basophils # (Manual) PT 27.0 H INR 2.46 H APTT Heparin Anti-Xa Level ABG pH POC ABG pO2 ABG pO2 ABG HCO3 ABG O2 Saturation ABG Base Excess POC ABG pCO2 ABG Hemoglobin ABG Oxyhemoglobin ABG Chloride ABG Glucose Oxyhemoglobin Sodium Potassium Chloride Carbon Dioxide BUN Creatinine Glucose POC Glucose 109 H Lactic Acid Calcium Phosphorus Magnesium AST 424 H ALT 796 H Lactate Dehydrogenase Total Bilirubin 1.60 H Direct Bilirubin 1.2 H CK-MB (CK-2) C-Reactive Protein NT-Pro-B Natriuret Pep Total Protein Albumin 2.9 L Arterial Blood Glucose Urine WBC (Auto) Urine Creatinine 02/08/20 02/08/20 02/08/20 12:14 17:44 19:00 WBC RBC Hgb Hct MCHC RDW MCV MCH Lymph % (Auto) [place] % (Auto) [place] # Eos # Lymph # (Auto) [place] # (Auto) Eos # (Auto) Seg Neutrophils % Seg Neuts % (Manual) Baso # (Auto) Lymphocytes % (Manual) Monocytes % (Manual) Eosinophils % (Manual) Basophils % (Manual) Seg Neutrophils # Seg Neutrophils # Man Lymphocytes # (Manual) Monocytes # (Manual) Eosinophils # (Manual) Nucleated RBC % Basophils # (Manual) PT INR APTT Heparin Anti-Xa Level ABG pH POC ABG pO2 ABG pO2 ABG HCO3 ABG O2 Saturation ABG Base Excess POC ABG pCO2 ABG Hemoglobin ABG Oxyhemoglobin ABG Chloride ABG Glucose Oxyhemoglobin Sodium Potassium Chloride Carbon Dioxide BUN Creatinine Glucose POC Glucose 111 H 107 H Lactic Acid Calcium Phosphorus Magnesium AST 309 H ALT 650 H Lactate Dehydrogenase Total Bilirubin 1.30 H Direct Bilirubin 0.9 H CK-MB (CK-2) C-Reactive Protein NT-Pro-B Natriuret Pep Total Protein 6.2 L Albumin 2.7 L Arterial Blood Glucose Urine WBC (Auto) Urine Creatinine 02/09/20 02/09/20 02/09/20 05:41 12:28 18:07 WBC RBC Hgb Hct MCHC RDW MCV MCH Lymph % (Auto) [place] % (Auto) [place] # Eos # Lymph # (Auto) [place] # (Auto) Eos # (Auto) Seg Neutrophils % Seg Neuts % (Manual) Baso # (Auto) Lymphocytes % (Manual) Monocytes % (Manual) Eosinophils % (Manual) Basophils % (Manual) Seg Neutrophils # Seg Neutrophils # Man Lymphocytes # (Manual) Monocytes # (Manual) Eosinophils # (Manual) Nucleated RBC % Basophils # (Manual) PT INR APTT Heparin Anti-Xa Level ABG pH POC ABG pO2 ABG pO2 ABG HCO3 ABG O2 Saturation ABG Base Excess POC ABG pCO2 ABG Hemoglobin ABG Oxyhemoglobin ABG Chloride ABG Glucose Oxyhemoglobin Sodium Potassium Chloride Carbon Dioxide BUN Creatinine Glucose POC Glucose 113 H 140 H 143 H Lactic Acid Calcium Phosphorus Magnesium AST ALT Lactate Dehydrogenase Total Bilirubin Direct Bilirubin CK-MB (CK-2) C-Reactive Protein NT-Pro-B Natriuret Pep Total Protein Albumin Arterial Blood Glucose Urine WBC (Auto) Urine Creatinine 11/02/09/20 02/10/20 21:40 23:45 06:00 WBC RBC Hgb Hct MCHC RDW MCV MCH Lymph % (Auto) [place] % (Auto) [place] # Eos # Lymph # (Auto) [place] # (Auto) Eos # (Auto) Seg Neutrophils % Seg Neuts % (Manual) Baso # (Auto) Lymphocytes % (Manual) Monocytes % (Manual) Eosinophils % (Manual) Basophils % (Manual) Seg Neutrophils # Seg Neutrophils # Man Lymphocytes # (Manual) Monocytes # (Manual) Eosinophils # (Manual) Nucleated RBC % Basophils # (Manual) PT INR APTT Heparin Anti-Xa Level ABG pH POC ABG pO2 ABG pO2 59.8 L ABG HCO3 33.3 H ABG O2 Saturation 88.9 L ABG Base Excess 7.4 H POC ABG pCO2 ABG Hemoglobin 10.4 L ABG Oxyhemoglobin ABG Chloride ABG Glucose Oxyhemoglobin 86.3 L Sodium Potassium Chloride Carbon Dioxide BUN Creatinine Glucose POC Glucose 127 H 114 H Lactic Acid Calcium Phosphorus Magnesium AST ALT Lactate Dehydrogenase Total Bilirubin Direct Bilirubin CK-MB (CK-2) C-Reactive Protein NT-Pro-B Natriuret Pep Total Protein Albumin Arterial Blood Glucose Urine WBC (Auto) Urine Creatinine 02/10/20 02/10/20 02/10/20 07:40 07:40 13:38 WBC 11.5 H RBC Hgb 10.6 L Hct 34.7 L MCHC 31 L RDW 19.8 H MCV 79 L MCH 24 L Lymph % (Auto) [place] % (Auto) 9.2 H [place] # Eos # Lymph # (Auto) [place] # (Auto) 1.1 H Eos # (Auto) Seg Neutrophils % Seg Neuts % (Manual) Baso # (Auto) Lymphocytes % (Manual) Monocytes % (Manual) Eosinophils % (Manual) Basophils % (Manual) Seg Neutrophils # Seg Neutrophils # Man Lymphocytes # (Manual) Monocytes # (Manual) Eosinophils # (Manual) Nucleated RBC % Basophils # (Manual) PT INR APTT Heparin Anti-Xa Level ABG pH POC ABG pO2 ABG pO2 ABG HCO3 ABG O2 Saturation ABG Base Excess POC ABG pCO2 ABG Hemoglobin ABG Oxyhemoglobin ABG Chloride ABG Glucose Oxyhemoglobin Sodium 151 H Potassium Chloride 107.2 H Carbon Dioxide 36 H BUN 25 H Creatinine 0.7 L Glucose 114 H POC Glucose 116 H Lactic Acid Calcium Phosphorus Magnesium 2.40 H AST ALT Lactate Dehydrogenase Total Bilirubin Direct Bilirubin CK-MB (CK-2) C-Reactive Protein NT-Pro-B Natriuret Pep Total Protein Albumin Arterial Blood Glucose Urine WBC (Auto) Urine Creatinine 02/10/20 02/11/20 02/11/20 17:44 05:47 12:21 WBC RBC Hgb Hct MCHC RDW MCV MCH Lymph % (Auto) [place] % (Auto) [place] # Eos # Lymph # (Auto) [place] # (Auto) Eos # (Auto) Seg Neutrophils % Seg Neuts % (Manual) Baso # (Auto) Lymphocytes % (Manual) Monocytes % (Manual) Eosinophils % (Manual) Basophils % (Manual) Seg Neutrophils # Seg Neutrophils # Man Lymphocytes # (Manual) Monocytes # (Manual) Eosinophils # (Manual) Nucleated RBC % Basophils # (Manual) PT INR APTT Heparin Anti-Xa Level ABG pH POC ABG pO2 ABG pO2 ABG HCO3 ABG O2 Saturation ABG Base Excess POC ABG pCO2 ABG Hemoglobin ABG Oxyhemoglobin ABG Chloride ABG Glucose Oxyhemoglobin Sodium Potassium Chloride Carbon Dioxide BUN Creatinine Glucose POC Glucose 139 H 173 H 143 H Lactic Acid Calcium Phosphorus Magnesium AST ALT Lactate Dehydrogenase Total Bilirubin Direct Bilirubin CK-MB (CK-2) C-Reactive Protein NT-Pro-B Natriuret Pep Total Protein Albumin Arterial Blood Glucose Urine WBC (Auto) Urine Creatinine 02/11/20 02/11/20 02/12/20 13:43 14:11 00:15 WBC RBC Hgb Hct MCHC RDW MCV MCH Lymph % (Auto) [place] % (Auto) [place] # Eos # Lymph # (Auto) [place] # (Auto) Eos # (Auto) Seg Neutrophils % Seg Neuts % (Manual) Baso # (Auto) Lymphocytes % (Manual) Monocytes % (Manual) Eosinophils % (Manual) Basophils % (Manual) Seg Neutrophils # Seg Neutrophils # Man Lymphocytes # (Manual) Monocytes # (Manual) Eosinophils # (Manual) Nucleated RBC % Basophils # (Manual) PT INR APTT Heparin Anti-Xa Level ABG pH 7.502 H POC ABG pO2 77.7 L ABG pO2 ABG HCO3 ABG O2 Saturation ABG Base Excess POC ABG pCO2 ABG Hemoglobin 11.1 L ABG Oxyhemoglobin ABG Chloride 108.0 H ABG Glucose 151 H Oxyhemoglobin Sodium Potassium Chloride Carbon Dioxide BUN Creatinine Glucose POC Glucose 130 H 125 H Lactic Acid Calcium Phosphorus Magnesium AST ALT Lactate Dehydrogenase Total Bilirubin Direct Bilirubin CK-MB (CK-2) C-Reactive Protein NT-Pro-B Natriuret Pep Total Protein Albumin Arterial Blood Glucose 151 H Urine WBC (Auto) Urine Creatinine 02/12/20 02/12/20 02/12/20 04:56 04:56 17:42 WBC RBC Hgb 9.9 L Hct 31.8 L MCHC 31 L RDW 19.4 H MCV 79 L MCH 25 L Lymph % (Auto) [place] % (Auto) 10.3 H [place] # Eos # Lymph # (Auto) [place] # (Auto) 1.0 H Eos # (Auto) Seg Neutrophils % Seg Neuts % (Manual) Baso # (Auto) Lymphocytes % (Manual) Monocytes % (Manual) Eosinophils % (Manual) Basophils % (Manual) Seg Neutrophils # Seg Neutrophils # Man Lymphocytes # (Manual) Monocytes # (Manual) Eosinophils # (Manual) Nucleated RBC % Basophils # (Manual) PT INR APTT Heparin Anti-Xa Level ABG pH POC ABG pO2 ABG pO2 ABG HCO3 ABG O2 Saturation ABG Base Excess POC ABG pCO2 ABG Hemoglobin ABG Oxyhemoglobin ABG Chloride ABG Glucose Oxyhemoglobin Sodium 149 H Potassium Chloride 108.6 H Carbon Dioxide BUN 28 H Creatinine 0.7 L Glucose 108 H POC Glucose 113 H Lactic Acid Calcium Phosphorus Magnesium AST ALT Lactate Dehydrogenase Total Bilirubin Direct Bilirubin CK-MB (CK-2) C-Reactive Protein NT-Pro-B Natriuret Pep Total Protein Albumin Arterial Blood Glucose Urine WBC (Auto) Urine Creatinine 02/13/20 02/13/20 02/13/20 00:39 05:36 12:25 WBC RBC Hgb Hct MCHC RDW MCV MCH Lymph % (Auto) [place] % (Auto) [place] # Eos # Lymph # (Auto) [place] # (Auto) Eos # (Auto) Seg Neutrophils % Seg Neuts % (Manual) Baso # (Auto) Lymphocytes % (Manual) Monocytes % (Manual) Eosinophils % (Manual) Basophils % (Manual) Seg Neutrophils # Seg Neutrophils # Man Lymphocytes # (Manual) Monocytes # (Manual) Eosinophils # (Manual) Nucleated RBC % Basophils # (Manual) PT INR APTT Heparin Anti-Xa Level ABG pH POC ABG pO2 ABG pO2 ABG HCO3 ABG O2 Saturation ABG Base Excess POC ABG pCO2 ABG Hemoglobin ABG Oxyhemoglobin ABG Chloride ABG Glucose Oxyhemoglobin Sodium Potassium Chloride Carbon Dioxide BUN Creatinine Glucose POC Glucose 129 H 126 H 129 H Lactic Acid Calcium Phosphorus Magnesium AST ALT Lactate Dehydrogenase Total Bilirubin Direct Bilirubin CK-MB (CK-2) C-Reactive Protein NT-Pro-B Natriuret Pep Total Protein Albumin Arterial Blood Glucose Urine WBC (Auto) Urine Creatinine 02/13/20 02/14/20 02/14/20 17:59 00:15 05:41 WBC RBC Hgb Hct MCHC RDW MCV MCH Lymph % (Auto) [place] % (Auto) [place] # Eos # Lymph # (Auto) [place] # (Auto) Eos # (Auto) Seg Neutrophils % Seg Neuts % (Manual) Baso # (Auto) Lymphocytes % (Manual) Monocytes % (Manual) Eosinophils % (Manual) Basophils % (Manual) Seg Neutrophils # Seg Neutrophils # Man Lymphocytes # (Manual) Monocytes # (Manual) Eosinophils # (Manual) Nucleated RBC % Basophils # (Manual) PT INR APTT Heparin Anti-Xa Level ABG pH POC ABG pO2 ABG pO2 ABG HCO3 ABG O2 Saturation ABG Base Excess POC ABG pCO2 ABG Hemoglobin ABG Oxyhemoglobin ABG Chloride ABG Glucose Oxyhemoglobin Sodium Potassium Chloride Carbon Dioxide BUN Creatinine Glucose POC Glucose 153 H 130 H 130 H Lactic Acid Calcium Phosphorus Magnesium AST ALT Lactate Dehydrogenase Total Bilirubin Direct Bilirubin CK-MB (CK-2) C-Reactive Protein NT-Pro-B Natriuret Pep Total Protein Albumin Arterial Blood Glucose Urine WBC (Auto) Urine Creatinine 02/14/20 02/15/20 02/15/20 11:32 00:12 05:27 WBC RBC Hgb Hct MCHC RDW MCV MCH Lymph % (Auto) [place] % (Auto) [place] # Eos # Lymph # (Auto) [place] # (Auto) Eos # (Auto) Seg Neutrophils % Seg Neuts % (Manual) Baso # (Auto) Lymphocytes % (Manual) Monocytes % (Manual) Eosinophils % (Manual) Basophils % (Manual) Seg Neutrophils # Seg Neutrophils # Man Lymphocytes # (Manual) Monocytes # (Manual) Eosinophils # (Manual) Nucleated RBC % Basophils # (Manual) PT INR APTT Heparin Anti-Xa Level ABG pH POC ABG pO2 ABG pO2 ABG HCO3 ABG O2 Saturation ABG Base Excess POC ABG pCO2 ABG Hemoglobin ABG Oxyhemoglobin ABG Chloride ABG Glucose Oxyhemoglobin Sodium Potassium Chloride Carbon Dioxide BUN Creatinine Glucose POC Glucose 157 H 124 H 111 H Lactic Acid Calcium Phosphorus Magnesium AST ALT Lactate Dehydrogenase Total Bilirubin Direct Bilirubin CK-MB (CK-2) C-Reactive Protein NT-Pro-B Natriuret Pep Total Protein Albumin Arterial Blood Glucose Urine WBC (Auto) Urine Creatinine 02/15/20 02/15/20 02/15/20 06:59 06:59 11:14 WBC RBC Hgb 10.4 L Hct 33.7 L MCHC 31 L RDW 19.4 H MCV 80 L MCH 24 L Lymph % (Auto) [place] % (Auto) [place] # Eos # Lymph # (Auto) [place] # (Auto) Eos # (Auto) Seg Neutrophils % Seg Neuts % (Manual) Baso # (Auto) Lymphocytes % (Manual) Monocytes % (Manual) Eosinophils % (Manual) Basophils % (Manual) 2.0 H Seg Neutrophils # Seg Neutrophils # Man Lymphocytes # (Manual) Monocytes # (Manual) Eosinophils # (Manual) Nucleated RBC % 1.0 H Basophils # (Manual) 0.2 H PT INR APTT Heparin Anti-Xa Level ABG pH POC ABG pO2 ABG pO2 ABG HCO3 ABG O2 Saturation ABG Base Excess POC ABG pCO2 ABG Hemoglobin ABG Oxyhemoglobin ABG Chloride ABG Glucose Oxyhemoglobin Sodium 149 H Potassium Chloride 108.4 H Carbon Dioxide 31 H BUN 40 H Creatinine 0.7 L Glucose 150 H POC Glucose 128 H Lactic Acid Calcium Phosphorus Magnesium AST ALT Lactate Dehydrogenase Total Bilirubin Direct Bilirubin CK-MB (CK-2) C-Reactive Protein NT-Pro-B Natriuret Pep Total Protein Albumin Arterial Blood Glucose Urine WBC (Auto) Urine Creatinine 02/15/20 02/15/20 02/16/20 17:46 23:50 05:03 WBC RBC Hgb Hct MCHC RDW MCV MCH Lymph % (Auto) [place] % (Auto) [place] # Eos # Lymph # (Auto) [place] # (Auto) Eos # (Auto) Seg Neutrophils % Seg Neuts % (Manual) Baso # (Auto) Lymphocytes % (Manual) Monocytes % (Manual) Eosinophils % (Manual) Basophils % (Manual) Seg Neutrophils # Seg Neutrophils # Man Lymphocytes # (Manual) Monocytes # (Manual) Eosinophils # (Manual) Nucleated RBC % Basophils # (Manual) PT INR APTT Heparin Anti-Xa Level ABG pH POC ABG pO2 ABG pO2 ABG HCO3 ABG O2 Saturation ABG Base Excess POC ABG pCO2 ABG Hemoglobin ABG Oxyhemoglobin ABG Chloride ABG Glucose Oxyhemoglobin Sodium Potassium Chloride Carbon Dioxide BUN Creatinine Glucose POC Glucose 154 H 135 H 148 H Lactic Acid Calcium Phosphorus Magnesium AST ALT Lactate Dehydrogenase Total Bilirubin Direct Bilirubin CK-MB (CK-2) C-Reactive Protein NT-Pro-B Natriuret Pep Total Protein Albumin Arterial Blood Glucose Urine WBC (Auto) Urine Creatinine 02/16/20 02/16/20 02/16/20 07:53 11:28 17:52 WBC RBC Hgb Hct MCHC RDW MCV MCH Lymph % (Auto) [place] % (Auto) [place] # Eos # Lymph # (Auto) [place] # (Auto) Eos # (Auto) Seg Neutrophils % Seg Neuts % (Manual) Baso # (Auto) Lymphocytes % (Manual) Monocytes % (Manual) Eosinophils % (Manual) Basophils % (Manual) Seg Neutrophils # Seg Neutrophils # Man Lymphocytes # (Manual) Monocytes # (Manual) Eosinophils # (Manual) Nucleated RBC % Basophils # (Manual) PT INR APTT Heparin Anti-Xa Level ABG pH POC ABG pO2 ABG pO2 ABG HCO3 ABG O2 Saturation ABG Base Excess POC ABG pCO2 ABG Hemoglobin ABG Oxyhemoglobin ABG Chloride ABG Glucose Oxyhemoglobin Sodium Potassium Chloride 107.9 H Carbon Dioxide BUN 38 H Creatinine 0.6 L Glucose 151 H POC Glucose 123 H 152 H Lactic Acid Calcium Phosphorus Magnesium AST ALT Lactate Dehydrogenase Total Bilirubin Direct Bilirubin CK-MB (CK-2) C-Reactive Protein NT-Pro-B Natriuret Pep Total Protein Albumin Arterial Blood Glucose Urine WBC (Auto) Urine Creatinine 02/16/20 02/17/20 02/17/20 23:49 06:24 11:36 WBC RBC Hgb Hct MCHC RDW MCV MCH Lymph % (Auto) [place] % (Auto) [place] # Eos # Lymph # (Auto) [place] # (Auto) Eos # (Auto) Seg Neutrophils % Seg Neuts % (Manual) Baso # (Auto) Lymphocytes % (Manual) Monocytes % (Manual) Eosinophils % (Manual) Basophils % (Manual) Seg Neutrophils # Seg Neutrophils # Man Lymphocytes # (Manual) Monocytes # (Manual) Eosinophils # (Manual) Nucleated RBC % Basophils # (Manual) PT INR APTT Heparin Anti-Xa Level ABG pH POC ABG pO2 ABG pO2 ABG HCO3 ABG O2 Saturation ABG Base Excess POC ABG pCO2 ABG Hemoglobin ABG Oxyhemoglobin ABG Chloride ABG Glucose Oxyhemoglobin Sodium Potassium Chloride Carbon Dioxide BUN Creatinine Glucose POC Glucose 156 H 193 H 162 H Lactic Acid Calcium Phosphorus Magnesium AST ALT Lactate Dehydrogenase Total Bilirubin Direct Bilirubin CK-MB (CK-2) C-Reactive Protein NT-Pro-B Natriuret Pep Total Protein Albumin Arterial Blood Glucose Urine WBC (Auto) Urine Creatinine 02/17/20 02/17/20 02/18/20 17:55 23:28 05:11 WBC RBC Hgb Hct MCHC RDW MCV MCH Lymph % (Auto) [place] % (Auto) [place] # Eos # Lymph # (Auto) [place] # (Auto) Eos # (Auto) Seg Neutrophils % Seg Neuts % (Manual) Baso # (Auto) Lymphocytes % (Manual) Monocytes % (Manual) Eosinophils % (Manual) Basophils % (Manual) Seg Neutrophils # Seg Neutrophils # Man Lymphocytes # (Manual) Monocytes # (Manual) Eosinophils # (Manual) Nucleated RBC % Basophils # (Manual) PT INR APTT Heparin Anti-Xa Level ABG pH POC ABG pO2 ABG pO2 ABG HCO3 ABG O2 Saturation ABG Base Excess POC ABG pCO2 ABG Hemoglobin ABG Oxyhemoglobin ABG Chloride ABG Glucose Oxyhemoglobin Sodium Potassium Chloride Carbon Dioxide BUN Creatinine Glucose POC Glucose 165 H 146 H 122 H Lactic Acid Calcium Phosphorus Magnesium AST ALT Lactate Dehydrogenase Total Bilirubin Direct Bilirubin CK-MB (CK-2) C-Reactive Protein NT-Pro-B Natriuret Pep Total Protein Albumin Arterial Blood Glucose Urine WBC (Auto) Urine Creatinine 02/18/20 02/18/20 02/19/20 12:24 17:29 00:01 WBC RBC Hgb Hct MCHC RDW MCV MCH Lymph % (Auto) [place] % (Auto) [place] # Eos # Lymph # (Auto) [place] # (Auto) Eos # (Auto) Seg Neutrophils % Seg Neuts % (Manual) Baso # (Auto) Lymphocytes % (Manual) Monocytes % (Manual) Eosinophils % (Manual) Basophils % (Manual) Seg Neutrophils # Seg Neutrophils # Man Lymphocytes # (Manual) Monocytes # (Manual) Eosinophils # (Manual) Nucleated RBC % Basophils # (Manual) PT INR APTT Heparin Anti-Xa Level ABG pH POC ABG pO2 ABG pO2 ABG HCO3 ABG O2 Saturation ABG Base Excess POC ABG pCO2 ABG Hemoglobin ABG Oxyhemoglobin ABG Chloride ABG Glucose Oxyhemoglobin Sodium Potassium Chloride Carbon Dioxide BUN Creatinine Glucose POC Glucose 162 H 136 H 145 H Lactic Acid Calcium Phosphorus Magnesium AST ALT Lactate Dehydrogenase Total Bilirubin Direct Bilirubin CK-MB (CK-2) C-Reactive Protein NT-Pro-B Natriuret Pep Total Protein Albumin Arterial Blood Glucose Urine WBC (Auto) Urine Creatinine 02/19/20 02/19/20 02/19/20 05:53 11:44 17:32 WBC RBC Hgb Hct MCHC RDW MCV MCH Lymph % (Auto) [place] % (Auto) [place] # Eos # Lymph # (Auto) [place] # (Auto) Eos # (Auto) Seg Neutrophils % Seg Neuts % (Manual) Baso # (Auto) Lymphocytes % (Manual) Monocytes % (Manual) Eosinophils % (Manual) Basophils % (Manual) Seg Neutrophils # Seg Neutrophils # Man Lymphocytes # (Manual) Monocytes # (Manual) Eosinophils # (Manual) Nucleated RBC % Basophils # (Manual) PT INR APTT Heparin Anti-Xa Level ABG pH POC ABG pO2 ABG pO2 ABG HCO3 ABG O2 Saturation ABG Base Excess POC ABG pCO2 ABG Hemoglobin ABG Oxyhemoglobin ABG Chloride ABG Glucose Oxyhemoglobin Sodium Potassium Chloride Carbon Dioxide BUN Creatinine Glucose POC Glucose 116 H 120 H 154 H Lactic Acid Calcium Phosphorus Magnesium AST ALT Lactate Dehydrogenase Total Bilirubin Direct Bilirubin CK-MB (CK-2) C-Reactive Protein NT-Pro-B Natriuret Pep Total Protein Albumin Arterial Blood Glucose Urine WBC (Auto) Urine Creatinine 02/19/20 02/20/20 02/20/20 23:43 00:24 00:24 WBC RBC Hgb 9.4 L Hct 30.0 L MCHC 31 L RDW 20.4 H MCV 79 L MCH 25 L Lymph % (Auto) [place] % (Auto) 8.5 H [place] # Eos # Lymph # (Auto) [place] # (Auto) Eos # (Auto) Seg Neutrophils % Seg Neuts % (Manual) Baso # (Auto) Lymphocytes % (Manual) Monocytes % (Manual) Eosinophils % (Manual) Basophils % (Manual) Seg Neutrophils # Seg Neutrophils # Man Lymphocytes # (Manual) Monocytes # (Manual) Eosinophils # (Manual) Nucleated RBC % Basophils # (Manual) PT INR APTT Heparin Anti-Xa Level ABG pH POC ABG pO2 ABG pO2 ABG HCO3 ABG O2 Saturation ABG Base Excess POC ABG pCO2 ABG Hemoglobin ABG Oxyhemoglobin ABG Chloride ABG Glucose Oxyhemoglobin Sodium 147 H Potassium 3.4 L Chloride Carbon Dioxide 31 H BUN 34 H Creatinine 0.5 L Glucose 135 H POC Glucose 122 H Lactic Acid Calcium Phosphorus Magnesium AST ALT Lactate Dehydrogenase Total Bilirubin Direct Bilirubin CK-MB (CK-2) C-Reactive Protein NT-Pro-B Natriuret Pep Total Protein Albumin Arterial Blood Glucose Urine WBC (Auto) Urine Creatinine 02/20/20 02/20/20 02/20/20 06:07 06:45 12:03 WBC RBC Hgb Hct MCHC RDW MCV MCH Lymph % (Auto) [place] % (Auto) [place] # Eos # Lymph # (Auto) [place] # (Auto) Eos # (Auto) Seg Neutrophils % Seg Neuts % (Manual) Baso # (Auto) Lymphocytes % (Manual) Monocytes % (Manual) Eosinophils % (Manual) Basophils % (Manual) Seg Neutrophils # Seg Neutrophils # Man Lymphocytes # (Manual) Monocytes # (Manual) Eosinophils # (Manual) Nucleated RBC % Basophils # (Manual) PT INR APTT Heparin Anti-Xa Level ABG pH 7.461 H POC ABG pO2 ABG pO2 ABG HCO3 33.3 H ABG O2 Saturation ABG Base Excess 8.4 H POC ABG pCO2 ABG Hemoglobin 10.0 L ABG Oxyhemoglobin ABG Chloride ABG Glucose Oxyhemoglobin 94.1 L Sodium Potassium Chloride Carbon Dioxide BUN Creatinine Glucose POC Glucose 109 H 128 H Lactic Acid Calcium Phosphorus Magnesium AST ALT Lactate Dehydrogenase Total Bilirubin Direct Bilirubin CK-MB (CK-2) C-Reactive Protein NT-Pro-B Natriuret Pep Total Protein Albumin Arterial Blood Glucose Urine WBC (Auto) Urine Creatinine 02/20/20 02/20/20 02/21/20 18:02 23:55 05:42 WBC RBC Hgb Hct MCHC RDW MCV MCH Lymph % (Auto) [place] % (Auto) [place] # Eos # Lymph # (Auto) [place] # (Auto) Eos # (Auto) Seg Neutrophils % Seg Neuts % (Manual) Baso # (Auto) Lymphocytes % (Manual) Monocytes % (Manual) Eosinophils % (Manual) Basophils % (Manual) Seg Neutrophils # Seg Neutrophils # Man Lymphocytes # (Manual) Monocytes # (Manual) Eosinophils # (Manual) Nucleated RBC % Basophils # (Manual) PT INR APTT Heparin Anti-Xa Level ABG pH POC ABG pO2 ABG pO2 ABG HCO3 ABG O2 Saturation ABG Base Excess POC ABG pCO2 ABG Hemoglobin ABG Oxyhemoglobin ABG Chloride ABG Glucose Oxyhemoglobin Sodium Potassium Chloride Carbon Dioxide BUN Creatinine Glucose POC Glucose 118 H 125 H 127 H Lactic Acid Calcium Phosphorus Magnesium AST ALT Lactate Dehydrogenase Total Bilirubin Direct Bilirubin CK-MB (CK-2) C-Reactive Protein NT-Pro-B Natriuret Pep Total Protein Albumin Arterial Blood Glucose Urine WBC (Auto) Urine Creatinine 02/21/20 02/21/20 02/21/20 12:10 17:35 23:40 WBC RBC Hgb Hct MCHC RDW MCV MCH Lymph % (Auto) [place] % (Auto) [place] # Eos # Lymph # (Auto) [place] # (Auto) Eos # (Auto) Seg Neutrophils % Seg Neuts % (Manual) Baso # (Auto) Lymphocytes % (Manual) Monocytes % (Manual) Eosinophils % (Manual) Basophils % (Manual) Seg Neutrophils # Seg Neutrophils # Man Lymphocytes # (Manual) Monocytes # (Manual) Eosinophils # (Manual) Nucleated RBC % Basophils # (Manual) PT INR APTT Heparin Anti-Xa Level ABG pH POC ABG pO2 ABG pO2 ABG HCO3 ABG O2 Saturation ABG Base Excess POC ABG pCO2 ABG Hemoglobin ABG Oxyhemoglobin ABG Chloride ABG Glucose Oxyhemoglobin Sodium Potassium Chloride Carbon Dioxide BUN Creatinine Glucose POC Glucose 128 H 113 H 125 H Lactic Acid Calcium Phosphorus Magnesium AST ALT Lactate Dehydrogenase Total Bilirubin Direct Bilirubin CK-MB (CK-2) C-Reactive Protein NT-Pro-B Natriuret Pep Total Protein Albumin Arterial Blood Glucose Urine WBC (Auto) Urine Creatinine 02/22/20 02/22/20 02/22/20 05:57 08:06 08:06 WBC RBC Hgb 10.8 L Hct 35.2 L MCHC 31 L RDW 21.8 H MCV 80 L MCH 25 L Lymph % (Auto) [place] % (Auto) [place] # Eos # Lymph # (Auto) [place] # (Auto) Eos # (Auto) Seg Neutrophils % 71.5 H Seg Neuts % (Manual) Baso # (Auto) Lymphocytes % (Manual) Monocytes % (Manual) Eosinophils % (Manual) Basophils % (Manual) Seg Neutrophils # Seg Neutrophils # Man Lymphocytes # (Manual) Monocytes # (Manual) Eosinophils # (Manual) Nucleated RBC % Basophils # (Manual) PT INR APTT Heparin Anti-Xa Level ABG pH POC ABG pO2 ABG pO2 ABG HCO3 ABG O2 Saturation ABG Base Excess POC ABG pCO2 ABG Hemoglobin ABG Oxyhemoglobin ABG Chloride ABG Glucose Oxyhemoglobin Sodium 146 H Potassium Chloride Carbon Dioxide 34 H BUN 21 H Creatinine 0.4 L Glucose 149 H POC Glucose 138 H Lactic Acid Calcium Phosphorus Magnesium AST ALT Lactate Dehydrogenase Total Bilirubin Direct Bilirubin CK-MB (CK-2) C-Reactive Protein NT-Pro-B Natriuret Pep Total Protein Albumin Arterial Blood Glucose Urine WBC (Auto) Urine Creatinine 02/22/20 02/22/20 02/22/20 11:47 17:11 23:25 WBC RBC Hgb Hct MCHC RDW MCV MCH Lymph % (Auto) [place] % (Auto) [place] # Eos # Lymph # (Auto) [place] # (Auto) Eos # (Auto) Seg Neutrophils % Seg Neuts % (Manual) Baso # (Auto) Lymphocytes % (Manual) Monocytes % (Manual) Eosinophils % (Manual) Basophils % (Manual) Seg Neutrophils # Seg Neutrophils # Man Lymphocytes # (Manual) Monocytes # (Manual) Eosinophils # (Manual) Nucleated RBC % Basophils # (Manual) PT INR APTT Heparin Anti-Xa Level ABG pH POC ABG pO2 ABG pO2 ABG HCO3 ABG O2 Saturation ABG Base Excess POC ABG pCO2 ABG Hemoglobin ABG Oxyhemoglobin ABG Chloride ABG Glucose Oxyhemoglobin Sodium Potassium Chloride Carbon Dioxide BUN Creatinine Glucose POC Glucose 149 H 144 H 142 H Lactic Acid Calcium Phosphorus Magnesium AST ALT Lactate Dehydrogenase Total Bilirubin Direct Bilirubin CK-MB (CK-2) C-Reactive Protein NT-Pro-B Natriuret Pep Total Protein Albumin Arterial Blood Glucose Urine WBC (Auto) Urine Creatinine 02/23/20 02/23/20 02/23/20 05:22 11:37 18:14 WBC RBC Hgb Hct MCHC RDW MCV MCH Lymph % (Auto) [place] % (Auto) [place] # Eos # Lymph # (Auto) [place] # (Auto) Eos # (Auto) Seg Neutrophils % Seg Neuts % (Manual) Baso # (Auto) Lymphocytes % (Manual) Monocytes % (Manual) Eosinophils % (Manual) Basophils % (Manual) Seg Neutrophils # Seg Neutrophils # Man Lymphocytes # (Manual) Monocytes # (Manual) Eosinophils # (Manual) Nucleated RBC % Basophils # (Manual) PT INR APTT Heparin Anti-Xa Level ABG pH POC ABG pO2 ABG pO2 ABG HCO3 ABG O2 Saturation ABG Base Excess POC ABG pCO2 ABG Hemoglobin ABG Oxyhemoglobin ABG Chloride ABG Glucose Oxyhemoglobin Sodium Potassium Chloride Carbon Dioxide BUN Creatinine Glucose POC Glucose 144 H 113 H 127 H Lactic Acid Calcium Phosphorus Magnesium AST ALT Lactate Dehydrogenase Total Bilirubin Direct Bilirubin CK-MB (CK-2) C-Reactive Protein NT-Pro-B Natriuret Pep Total Protein Albumin Arterial Blood Glucose Urine WBC (Auto) Urine Creatinine 02/23/20 02/24/20 02/24/20 23:45 05:50 11:24 WBC RBC Hgb Hct MCHC RDW MCV MCH Lymph % (Auto) [place] % (Auto) [place] # Eos # Lymph # (Auto) [place] # (Auto) Eos # (Auto) Seg Neutrophils % Seg Neuts % (Manual) Baso # (Auto) Lymphocytes % (Manual) Monocytes % (Manual) Eosinophils % (Manual) Basophils % (Manual) Seg Neutrophils # Seg Neutrophils # Man Lymphocytes # (Manual) Monocytes # (Manual) Eosinophils # (Manual) Nucleated RBC % Basophils # (Manual) PT INR APTT Heparin Anti-Xa Level ABG pH POC ABG pO2 ABG pO2 ABG HCO3 ABG O2 Saturation ABG Base Excess POC ABG pCO2 ABG Hemoglobin ABG Oxyhemoglobin ABG Chloride ABG Glucose Oxyhemoglobin Sodium Potassium Chloride Carbon Dioxide BUN Creatinine Glucose POC Glucose 123 H 117 H 126 H Lactic Acid Calcium Phosphorus Magnesium AST ALT Lactate Dehydrogenase Total Bilirubin Direct Bilirubin CK-MB (CK-2) C-Reactive Protein NT-Pro-B Natriuret Pep Total Protein Albumin Arterial Blood Glucose Urine WBC (Auto) Urine Creatinine 02/24/20 02/24/20 02/25/20 18:35 23:27 05:20 WBC RBC Hgb Hct MCHC RDW MCV MCH Lymph % (Auto) [place] % (Auto) [place] # Eos # Lymph # (Auto) [place] # (Auto) Eos # (Auto) Seg Neutrophils % Seg Neuts % (Manual) Baso # (Auto) Lymphocytes % (Manual) Monocytes % (Manual) Eosinophils % (Manual) Basophils % (Manual) Seg Neutrophils # Seg Neutrophils # Man Lymphocytes # (Manual) Monocytes # (Manual) Eosinophils # (Manual) Nucleated RBC % Basophils # (Manual) PT INR APTT Heparin Anti-Xa Level ABG pH POC ABG pO2 ABG pO2 ABG HCO3 ABG O2 Saturation ABG Base Excess POC ABG pCO2 ABG Hemoglobin ABG Oxyhemoglobin ABG Chloride ABG Glucose Oxyhemoglobin Sodium Potassium Chloride Carbon Dioxide BUN Creatinine Glucose POC Glucose 121 H 127 H 133 H Lactic Acid Calcium Phosphorus Magnesium AST ALT Lactate Dehydrogenase Total Bilirubin Direct Bilirubin CK-MB (CK-2) C-Reactive Protein NT-Pro-B Natriuret Pep Total Protein Albumin Arterial Blood Glucose Urine WBC (Auto) Urine Creatinine 02/25/20 12:08 WBC RBC Hgb Hct MCHC RDW MCV MCH Lymph % (Auto) [place] % (Auto) [place] # Eos # Lymph # (Auto) [place] # (Auto) Eos # (Auto) Seg Neutrophils % Seg Neuts % (Manual) Baso # (Auto) Lymphocytes % (Manual) Monocytes % (Manual) Eosinophils % (Manual) Basophils % (Manual) Seg Neutrophils # Seg Neutrophils # Man Lymphocytes # (Manual) Monocytes # (Manual) Eosinophils # (Manual) Nucleated RBC % Basophils # (Manual) PT INR APTT Heparin Anti-Xa Level ABG pH POC ABG pO2 ABG pO2 ABG HCO3 ABG O2 Saturation ABG Base Excess POC ABG pCO2 ABG Hemoglobin ABG Oxyhemoglobin ABG Chloride ABG Glucose Oxyhemoglobin Sodium Potassium Chloride Carbon Dioxide BUN Creatinine Glucose POC Glucose 109 H Lactic Acid Calcium Phosphorus Magnesium AST ALT Lactate Dehydrogenase Total Bilirubin Direct Bilirubin CK-MB (CK-2) C-Reactive Protein NT-Pro-B Natriuret Pep Total Protein Albumin Arterial Blood Glucose Urine WBC (Auto) Urine Creatinine Chest x-ray: pending Allied health notes reviewed: nursing
[2020-02-25] MEDS: DIGOXIN 0.125 MG TAB PO SCH (17:07)
[2020-02-25] MEDS: TAMSULOSIN 0.4 MG CAP PO SCH (21:01)
[2020-02-25] MEDS: POLYETHYLENE GLYCOL 3350 17 GM POWDER PO SCH (21:01)
[2020-02-26] MEDS: ONDANSETRON 4 MG/2 ML INJ IV PRN (03:15)
[2020-02-26 08:18] LABS: Bacteria,Urine 4+ /HPF (Negative); Bilirubin,Urine NEG (Negative); Blood,Urine SM (Negative); Color,Urine Amber (Yellow); Mucus,Urine 1+ /HPF
[2020-02-26 08:20] LABS: WBC,Urine > 182.0 /HPF (0.0-6.0)
[2020-02-26] MEDS: INSULIN REGULAR, HUMAN 100 UNIT/ML 3ML VIAL SUB-Q SCH ×4 (08:50→17:30)
[2020-02-26] MEDS: DOCUSATE SODIUM 100 MG/10 ML ORAL LIQD FEEDTUBE SCH ×2 (09:09→21:37)
[2020-02-26] MEDS: LANSOPRAZOLE 30 MG SOLUTAB FEEDTUBE SCH (09:09)
[2020-02-26] MEDS: MIDODRINE 5 MG TAB PO SCH ×3 (09:09→15:50)
[2020-02-26] MEDS: QUEtiapine 100 MG TAB PO SCH ×2 (09:09→21:39)
[2020-02-26] MEDS: APIXABAN 5 MG TAB PO SCH ×2 (09:09→21:37)
[2020-02-26] MEDS: CLOPIDOGREL 75 MG TAB PO SCH (09:09)
[2020-02-26] MEDS: GLYCOPYRROLATE 2 MG TAB PO SCH ×3 (09:09→21:36)
--- NOTE | 2020-02-26 10:53 | Progress Note ---
<KACEY HICKEY - Last Filed: 02/26/20 10:51> Assessment and Plan Chest pain, resolved LHC done 01/22/20 widely patent previous LAD stent. We found mild nonobstructive atherosclerosis of the mid right coronary artery. Otherwise the rest of the coronary system was without significant atherosclerosis. LVEF 40 to 45%. There was some hypokinesis of the basal inferior wall suggestive of previous or recent infarct. ECG done 01/19/20 shows sinus rhythm with low voltage QRS and subtle ST segment elevations in the inferolateral leads that suggested possible concern for an acute injury at that time. Atrial fibrillation, rate control on digoxin amiodarone discontinued due to liver transaminases Ischemic Cardiomyopathy re-echo this presentation reports an LVEF 40-45%. Hx of CAD Multifocal pneumonia negative COVID-19 test x 3 Chronic Respiratory failure s/p trach History of COPD Acute PE/DVT -on Eliquis Anemia Partial SBO vs ileus Conservative cardiac management. Subjective Date of service: 02/26/20 Principal diagnosis: Ac hypoxemic resp failure; Pneumonia; PUI COVID-19; CHF; COPD; HTN Interval history: No interval cardiac changes. Atrial fibrillation with a well controlled ventricular rate on telemetry. Objective Vital Signs Temp Pulse Pulse Resp BP Pulse Ox Pulse Ox 02/26/20 09:00 107 H 17 111/83 02/26/20 08:31 125 H 19 108/79 100 02/26/20 08:01 110 H 20 108/79 97 02/26/20 08:00 98.3 F 113 H 111/83 98 98 02/26/20 07:31 124 H 27 H 98/80 98 02/26/20 07:00 107 H 18 98/80 96 02/26/20 06:31 113 H 22 119/82 97 02/26/20 06:01 107 H 21 119/82 95 02/26/20 05:31 107 H 14 100 02/26/20 05:01 120 H 21 111/82 95 02/26/20 04:31 112 H 13 115/90 02/26/20 04:00 97.5 F L 119 H 118 H 23 115/90 96 02/26/20 03:31 132 H 28 H 111/83 97 02/26/20 03:15 133 H 97 02/26/20 03:14 98 02/26/20 03:01 131 H 14 99/76 100 02/26/20 02:31 116 H 21 99/76 99 02/26/20 02:00 109 H 19 103/74 98 02/26/20 01:30 113 H 19 103/74 99 02/26/20 01:00 103 H 18 113/69 99 02/26/20 00:31 123 H 25 H 113/69 98 02/26/20 00:01 105 H 17 113/69 99 02/26/20 00:00 97.2 F L 98 H 118 H 22 113/69 98 02/25/20 23:37 87 125/68 97 02/25/20 23:31 98 H 17 125/68 97 02/25/20 23:00 105 H 17 125/68 97 02/25/20 22:31 140 H 26 H 104/68 96 02/25/20 22:00 109 H 15 104/68 97 02/25/20 21:31 97 H 18 111/72 98 02/25/20 21:01 114 H 24 111/72 97 02/25/20 20:31 86 22 102/77 98 02/25/20 20:01 108 H 22 127/83 99 02/25/20 20:00 97.6 F 123 H 95 H 20 99 02/25/20 19:35 110 H 102/77 100 02/25/20 19:30 102 H 21 137/92 100 02/25/20 19:00 97 H 20 100 02/25/20 18:30 118 H 25 H 137/92 99 02/25/20 18:00 122 H 20 112/67 100 02/25/20 17:30 97 H 20 126/85 100 02/25/20 17:07 112 H 118/76 02/25/20 17:00 102 H 22 126/85 100 02/25/20 16:30 106 H 25 H 94/74 100 02/25/20 16:00 97.9 F 134 H 87 21 94/74 100 02/25/20 15:45 103 H 121/85 99 02/25/20 15:30 91 H 19 118/70 100 02/25/20 15:00 110 H 20 108/76 99 02/25/20 14:30 124 H 27 H 111/80 98 02/25/20 14:28 97 02/25/20 14:00 103 H 21 121/85 99 02/25/20 13:30 126 H 22 111/82 98 02/25/20 13:00 101 H 17 115/89 100 02/25/20 12:30 95 H 19 117/95 100 02/25/20 12:00 97.9 F 100 H 97 H 14 97/67 100 02/25/20 11:46 104 H 23 116/83 98 02/25/20 11:30 94 H 17 105/60 97 02/25/20 11:00 104 H 19 116/83 98 - Physical Examination General: Other (s/p trach) HEENT: Positive: PERRL Cardiac: Positive: irregularly irregular Neuro: Positive: Weakness - Allied health notes Allied health notes reviewed: nursing <PETRONA SHAHID Last Filed: 02/28/20 08:59> Assessment and Plan - Patient Problems (1) Acute respiratory failure Current Visit: Yes Status: Acute (2) Bilateral pneumonia Current Visit: Yes Status: Acute (3) COPD exacerbation Current Visit: No Status: Acute (4) Hypertension Current Visit: No Status: Acute Qualifiers: Hypertension type: essential hypertension Qualified Code(s): I10 - Essential (primary) hypertension (5) Cardiomyopathy Current Visit: Yes Status: Acute (6) Paroxysmal atrial fibrillation Current Visit: Yes Status: Acute Subjective Interval history: I SAW THIS PT & AGREE WITH THE Dx & Tx PLAN Objective Vital Signs Temp Pulse Pulse Pulse Resp Resp BP 02/28/20 08:00 97.5 F L 106 H 18 21 109/79 02/28/20 07:00 108 H 17 128/92 02/28/20 06:00 117 H 16 128/92 02/28/20 05:35 119 H 125/80 02/28/20 05:00 117 H 15 125/80 02/28/20 04:38 102 H 02/28/20 04:00 98.2 F 126 H 21 16 129/85 02/28/20 03:00 103 H 20 115/95 02/28/20 02:00 132 H 19 95/68 02/28/20 01:00 101 H 22 111/82 02/28/20 00:03 116 H 02/28/20 00:00 98.1 F 127 H 21 108/73 02/27/20 23:15 23 02/27/20 23:04 105 H 22 109/75 02/27/20 23:00 114 H 30 H 120/79 02/27/20 22:30 101 H 20 120/79 02/27/20 22:00 92 H 23 117/85 02/27/20 21:30 132 H 24 117/85 02/27/20 21:00 120 H 21 117/85 02/27/20 20:30 91 H 22 109/75 02/27/20 20:21 109 H 02/27/20 20:00 97.8 F 100 H 24 24 109/75 02/27/20 19:30 134 H 20 113/77 02/27/20 19:23 97 H 113/77 02/27/20 19:00 96 H 11 L 113/77 02/27/20 18:30 98 H 13 119/79 02/27/20 18:00 101 H 13 119/79 02/27/20 17:30 111 H 11 L 114/85 02/27/20 17:00 124 H 22 114/85 02/27/20 16:54 112 H 107/70 02/27/20 16:30 126 H 19 107/70 02/27/20 16:00 98.0 F 113 H 108 H 20 121/94 02/27/20 15:31 96 H 21 121/94 02/27/20 15:30 115 H 22 121/94 02/27/20 15:00 100 H 15 121/94 02/27/20 14:30 126 H 21 119/96 02/27/20 14:00 120 H 22 119/96 02/27/20 13:30 108 H 15 120/87 02/27/20 13:00 122 H 22 133/100 02/27/20 12:30 113 H 18 133/100 02/27/20 12:10 22 02/27/20 12:00 97.5 F L 134 H 110 H 20 133/100 02/27/20 11:45 129 H 29 H 126/99 02/27/20 11:30 126 H 22 144/101 02/27/20 11:00 131 H 24 90/73 02/27/20 10:30 120 H 19 90/73 02/27/20 10:01 101 H 14 90/73 02/27/20 10:00 02/27/20 09:31 109 H 20 112/86 02/27/20 09:01 126 H 26 H 112/86 Pulse Ox Pulse Ox 02/28/20 08:00 99 98 02/28/20 07:00 96 02/28/20 06:00 98 02/28/20 05:35 97 02/28/20 05:00 99 02/28/20 04:38 02/28/20 04:00 99 02/28/20 03:00 99 02/28/20 02:00 98 02/28/20 01:00 99 02/28/20 00:03 02/28/20 00:00 100 02/27/20 23:15 02/27/20 23:04 99 02/27/20 23:00 99 02/27/20 22:30 98 02/27/20 22:00 98 02/27/20 21:30 100 02/27/20 21:00 100 02/27/20 20:30 98 02/27/20 20:21 02/27/20 20:00 99 02/27/20 19:30 98 02/27/20 19:23 97 02/27/20 19:00 99 02/27/20 18:30 99 02/27/20 18:00 99 02/27/20 17:30 99 02/27/20 17:00 98 02/27/20 16:54 02/27/20 16:30 99 02/27/20 16:00 98 02/27/20 15:31 100 100 02/27/20 15:30 99 02/27/20 15:00 99 02/27/20 14:30 100 02/27/20 14:00 99 02/27/20 13:30 98 02/27/20 13:00 97 02/27/20 12:30 96 02/27/20 12:10 02/27/20 12:00 96 02/27/20 11:45 100 02/27/20 11:30 100 02/27/20 11:00 99 02/27/20 10:30 100 02/27/20 10:01 98 02/27/20 10:00 99 02/27/20 09:31 98 02/27/20 09:01 96
[2020-02-26] MEDS: HALOPERIDOL LACTATE 5 MG/1 ML INJ IV PRN (15:00)
--- NOTE | 2020-02-26 15:47 | Progress Note ---
Assessment and Plan Acute hypoxemic respiratory failure Bilateral pneumonia, community acquired. Acute LLL branch P.E. Acute DVT Person under investigation for COVID-19 infection. Acute congestive heart failure exacerbation. History of cerebrovascular accident. Acute chronic obstructive pulmonary disease exacerbation. Hypertension and hypertensive urgency at presentation. History of arthritis. Leukocytosis. Lactic acidosis. Oropharyngeal dysphagia - repeat CXR prn at this point - transferred to [facility] - continue Robinul & Scopolamine for secretion control - continue daily SAT's and SBT assessment as tolerated - continue care as below otherwise; - repeat CXR next 24 hours and address - continue to rest on AC qhs - rate control per cardiology team - continue prn haldol for agitation to avoid hypoventilation (stopped Lorazepam) - continue Flomax - antiinfective's per ID rec's - Midodrine for BP support - prn mucomyst nebs re: secretions - continue full anticoagulation with Apixaban - continue seroquel for anxiolysis / delirium - COVID isolation per facility protocol - prn diuresis while following electrolytes / I's & O's - continue to wean oxygen for O2 sat's > 92% - continue bronchodilators with routine trach care and pulmonary hygiene per RT - continue Robinul & Scopolamine for secretion control - VAP bundle addressed (Aspiration precautions, HOB >40) - continue to wean per pulmonary driven protocols - sedation target is RASS 0 to -1 - continue prn analgesia per CPOT score - follow clinically re: fever curves / trend WBC - Avoid delirium (no benzodiazepines if they can be avoided) - Maintain sleep-wake cycle - enteral nutrition at goal rate as tolerated - continue accucheck's with glycemic control per SSI for target blood glucose goal of 140-180 mg/dL while critically ill; Avoid hypoglycemia - for VTE he is onEliquis - continue stress ulcer prophylaxis with Famotidine - continue mobility protocols for pressure ulcer prophylaxis - continue fall precautions - continue wound care management per RN / WCT - Supportive transfusions to keep HgB>7g/dL - CXR's and ABG's prn - Continue to monitor neurologic function - Continue chronic home medications - Continue all supportive care ........ re-evaluate in am & prn CONDITION: CRITICAL PROGNOSIS: GUARDED CODE STATUS: FULL CODE The high probability of a clinically significant, sudden or life threatening deterioration of the [Respiratory, cardiovascular & neurological] system(s) required my full and direct attention, intervention and personal management. The aggregate critical care time was [32] minutes without overlap. Time includes spent on [x] Data Review and interpretation [x] Patient assessment and monitoring of vital signs [x] Documentation [x] Medication orders and management Subjective Date of service: 02/26/20 Principal diagnosis: Ac hypoxemic resp failure; Pneumonia; PUI COVID-19; CHF; COPD; HTN Interval history: Patient is seen today for: Acute hypoxemic respiratory failure; Adan. Pneumonia (CAP); PUI COVID-19 infection; AE-CHF; AE-COPD; H/O CVA; HTN Seen and examined at bedside; 24 hour events reviewed; nursing and respiratory care staff consulted; no adverse overnight events reported to me; resting peacefully in bed; remains a difficult wean; failed PSV trial earlier; hungry; denies chest pain; anxious intermittently still Objective Vital Signs - 12hr 02/26/20 02/26/20 02/26/20 04:00 04:31 05:01 Temperature 97.5 F L Pulse Rate 119 H 112 H 120 H Pulse Rate [ 118 H From Monitor] Respiratory 23 13 21 Rate Blood Pressure 115/90 115/90 111/82 O2 Sat by Pulse 96 95 Oximetry O2 Sat by Pulse Oximetry [ Assessment] 02/26/20 02/26/20 02/26/20 05:31 06:01 06:31 Temperature Pulse Rate 107 H 107 H 113 H Pulse Rate [ From Monitor] Respiratory 14 21 22 Rate Blood Pressure 119/82 119/82 O2 Sat by Pulse 100 95 97 Oximetry O2 Sat by Pulse Oximetry [ Assessment] 02/26/20 02/26/20 02/26/20 07:00 07:31 08:00 Temperature 98.3 F Pulse Rate 107 H 124 H 97 H Pulse Rate [ 97 H From Monitor] Respiratory 18 27 H 20 Rate Blood Pressure 98/80 98/80 111/83 O2 Sat by Pulse 96 98 98 Oximetry O2 Sat by Pulse 98 Oximetry [ Assessment] 02/26/20 02/26/20 02/26/20 08:01 08:31 09:00 Temperature Pulse Rate 110 H 125 H 107 H Pulse Rate [ From Monitor] Respiratory 20 19 27 H Rate Blood Pressure 108/79 108/79 100/73 O2 Sat by Pulse 97 100 99 Oximetry O2 Sat by Pulse Oximetry [ Assessment] 02/26/20 02/26/20 02/26/20 09:31 10:00 10:31 Temperature Pulse Rate 110 H 113 H 121 H Pulse Rate [ From Monitor] Respiratory 22 20 22 Rate Blood Pressure 111/83 107/79 107/79 O2 Sat by Pulse 97 99 97 Oximetry O2 Sat by Pulse Oximetry [ Assessment] 02/26/20 02/26/20 02/26/20 11:00 11:01 11:31 Temperature Pulse Rate 114 H 102 H 113 H Pulse Rate [ From Monitor] Respiratory 23 16 19 Rate Blood Pressure 129/95 117/72 117/72 O2 Sat by Pulse 99 95 99 Oximetry O2 Sat by Pulse Oximetry [ Assessment] 02/26/20 02/26/20 02/26/20 12:00 12:31 13:00 Temperature 98.0 F Pulse Rate 109 H 130 H 106 H Pulse Rate [ 119 H From Monitor] Respiratory 27 H 23 26 H Rate Blood Pressure 110/80 110/80 103/79 O2 Sat by Pulse 98 98 97 Oximetry O2 Sat by Pulse Oximetry [ Assessment] 02/26/20 02/26/20 02/26/20 13:31 14:01 14:31 Temperature Pulse Rate 103 H 108 H 102 H Pulse Rate [ From Monitor] Respiratory 24 24 23 Rate Blood Pressure 103/79 106/80 106/80 O2 Sat by Pulse 96 99 99 Oximetry O2 Sat by Pulse Oximetry [ Assessment] 02/26/20 15:00 Temperature Pulse Rate 105 H Pulse Rate [ From Monitor] Respiratory 23 Rate Blood Pressure 100/73 O2 Sat by Pulse 96 Oximetry O2 Sat by Pulse Oximetry [ Assessment] Constitutional: alert, appears uncomfortable, other (elelelderly and obese male, normocephalic with mildly increased respiratory effort at rest) Eyes: non-icteric ENT: oropharynx moist, other (+ midline tracheostomy) Neck: supple, no JVD Effort: mildly labored Ascultation: Bilateral: diminished breath sounds, rhonchi (scant) Percussion: Bilateral: not dull Cardiovascular: irregular rhythm Gastrointestinal: normoactive bowel sounds, soft, non-tender, non-distended (protuberant), other (protuberant; PEG in place) Integumentary: normal Extremities: no cyanosis, pulses normal, no ischemia or petechiae, edema (bilateral lower) Neurologic: non-focal exam (moves extremities), pupils equal and round, other (intermittent agitation) Psychiatric: anxious CBC and BMP: 02/22/20 08:06 02/22/20 08:06 ABG, PT/INR, D-dimer: ABG ABG pH 7.461 pH Units (7.350-7.450) H 02/20/20 06:45 POC ABG pCO2 34.8 mmHg (32.0-48.0) 02/11/20 14:11 ABG pCO2 47.8 mm Hg 02/20/20 06:45 POC ABG pO2 77.7 mmHg (83-108) L 02/11/20 14:11 ABG pO2 88.7 mm Hg (80.0-90.0) 02/20/20 06:45 POC ABG HCO3 26.7 02/11/20 14:11 ABG O2 Saturation 97.2 % (95.0-99.0) 02/20/20 06:45 PT/INR, D-dimer PT 27.0 Sec. (12.2-14.9) H 02/07/20 15:03 INR 2.46 (0.87-1.13) H 02/07/20 15:03 Abnormal lab findings: Abnormal Labs 11/24/19 11/24/19 11/24/19 02:53 02:53 03:45 WBC 14.3 H RBC Hgb Hct MCHC RDW 17.2 H MCV MCH Lymph % (Auto) Crawford % (Auto) Crawford # Eos # Lymph # (Auto) Crawford # (Auto) Eos # (Auto) Seg Neutrophils % Seg Neuts % (Manual) Baso # (Auto) Lymphocytes % (Manual) Monocytes % (Manual) Eosinophils % (Manual) Basophils % (Manual) Seg Neutrophils # Seg Neutrophils # Man 8.3 H Lymphocytes # (Manual) Monocytes # (Manual) 0.9 H Eosinophils # (Manual) Nucleated RBC % Basophils # (Manual) PT INR APTT Heparin Anti-Xa Level ABG pH 7.313 L POC ABG pO2 ABG pO2 102.8 H ABG HCO3 ABG O2 Saturation ABG Base Excess -2.9 L POC ABG pCO2 ABG Hemoglobin ABG Oxyhemoglobin ABG Chloride ABG Glucose Oxyhemoglobin 93.9 L Sodium Potassium Chloride Carbon Dioxide BUN Creatinine Glucose 195 H POC Glucose Lactic Acid Calcium Phosphorus Magnesium AST ALT Lactate Dehydrogenase Total Bilirubin Direct Bilirubin CK-MB (CK-2) 4.3 H C-Reactive Protein NT-Pro-B Natriuret Pep 1181 H Total Protein Albumin Arterial Blood Glucose Urine WBC (Auto) Urine Creatinine 11/24/19 11/24/19 11/24/19 04:53 04:53 10:37 WBC RBC Hgb Hct MCHC RDW MCV MCH Lymph % (Auto) Crawford % (Auto) Crawford # Eos # Lymph # (Auto) Crawford # (Auto) Eos # (Auto) Seg Neutrophils % Seg Neuts % (Manual) Baso # (Auto) Lymphocytes % (Manual) Monocytes % (Manual) Eosinophils % (Manual) Basophils % (Manual) Seg Neutrophils # Seg Neutrophils # Man Lymphocytes # (Manual) Monocytes # (Manual) Eosinophils # (Manual) Nucleated RBC % Basophils # (Manual) PT INR APTT Heparin Anti-Xa Level ABG pH POC ABG pO2 ABG pO2 ABG HCO3 ABG O2 Saturation ABG Base Excess POC ABG pCO2 ABG Hemoglobin ABG Oxyhemoglobin ABG Chloride ABG Glucose Oxyhemoglobin Sodium Potassium Chloride Carbon Dioxide BUN Creatinine Glucose 162 H POC Glucose Lactic Acid 2.40 H* 2.50 H* Calcium Phosphorus Magnesium AST ALT Lactate Dehydrogenase 240 H Total Bilirubin Direct Bilirubin CK-MB (CK-2) C-Reactive Protein NT-Pro-B Natriuret Pep Total Protein Albumin Arterial Blood Glucose Urine WBC (Auto) Urine Creatinine 11/24/19 11/24/19 11/24/19 12:21 14:50 19:54 WBC RBC Hgb Hct MCHC RDW MCV MCH Lymph % (Auto) Crawford % (Auto) Crawford # Eos # Lymph # (Auto) Crawford # (Auto) Eos # (Auto) Seg Neutrophils % Seg Neuts % (Manual) Baso # (Auto) Lymphocytes % (Manual) Monocytes % (Manual) Eosinophils % (Manual) Basophils % (Manual) Seg Neutrophils # Seg Neutrophils # Man Lymphocytes # (Manual) Monocytes # (Manual) Eosinophils # (Manual) Nucleated RBC % Basophils # (Manual) PT INR APTT Heparin Anti-Xa Level ABG pH POC ABG pO2 ABG pO2 ABG HCO3 ABG O2 Saturation ABG Base Excess POC ABG pCO2 ABG Hemoglobin ABG Oxyhemoglobin ABG Chloride ABG Glucose Oxyhemoglobin Sodium Potassium Chloride Carbon Dioxide BUN Creatinine Glucose POC Glucose 145 H 143 H 124 H Lactic Acid Calcium Phosphorus Magnesium AST ALT Lactate Dehydrogenase Total Bilirubin Direct Bilirubin CK-MB (CK-2) C-Reactive Protein NT-Pro-B Natriuret Pep Total Protein Albumin Arterial Blood Glucose Urine WBC (Auto) Urine Creatinine 11/25/19 11/25/19 11/25/19 00:18 03:18 05:11 WBC 13.7 H RBC Hgb Hct MCHC RDW 17.1 H MCV MCH Lymph % (Auto) 10.8 L Crawford % (Auto) 8.7 H Crawford # 1.2 H Eos # Lymph # (Auto) Crawford # (Auto) Eos # (Auto) Seg Neutrophils % 80.2 H Seg Neuts % (Manual) Baso # (Auto) Lymphocytes % (Manual) Monocytes % (Manual) Eosinophils % (Manual) Basophils % (Manual) Seg Neutrophils # 11.0 H Seg Neutrophils # Man Lymphocytes # (Manual) Monocytes # (Manual) Eosinophils # (Manual) Nucleated RBC % Basophils # (Manual) PT INR APTT Heparin Anti-Xa Level ABG pH 7.333 L POC ABG pO2 ABG pO2 61.2 L ABG HCO3 ABG O2 Saturation 90.2 L ABG Base Excess POC ABG pCO2 ABG Hemoglobin 13.7 L ABG Oxyhemoglobin ABG Chloride ABG Glucose Oxyhemoglobin 88.2 L Sodium Potassium Chloride Carbon Dioxide BUN Creatinine Glucose POC Glucose 109 H Lactic Acid Calcium Phosphorus Magnesium AST ALT Lactate Dehydrogenase Total Bilirubin Direct Bilirubin CK-MB (CK-2) C-Reactive Protein NT-Pro-B Natriuret Pep Total Protein Albumin Arterial Blood Glucose Urine WBC (Auto) Urine Creatinine 11/25/19 11/25/19 11/26/19 05:11 11:40 03:12 WBC RBC Hgb Hct MCHC RDW MCV MCH Lymph % (Auto) Crawford % (Auto) Crawford # Eos # Lymph # (Auto) Crawford # (Auto) Eos # (Auto) Seg Neutrophils % Seg Neuts % (Manual) Baso # (Auto) Lymphocytes % (Manual) Monocytes % (Manual) Eosinophils % (Manual) Basophils % (Manual) Seg Neutrophils # Seg Neutrophils # Man Lymphocytes # (Manual) Monocytes # (Manual) Eosinophils # (Manual) Nucleated RBC % Basophils # (Manual) PT INR APTT Heparin Anti-Xa Level ABG pH POC ABG pO2 ABG pO2 155.1 H ABG HCO3 27.8 H ABG O2 Saturation ABG Base Excess POC ABG pCO2 ABG Hemoglobin 12.2 L ABG Oxyhemoglobin ABG Chloride ABG Glucose Oxyhemoglobin Sodium Potassium Chloride Carbon Dioxide BUN 23 H Creatinine Glucose 110 H POC Glucose 108 H Lactic Acid Calcium Phosphorus Magnesium AST ALT Lactate Dehydrogenase Total Bilirubin Direct Bilirubin CK-MB (CK-2) C-Reactive Protein NT-Pro-B Natriuret Pep Total Protein Albumin Arterial Blood Glucose Urine WBC (Auto) Urine Creatinine 11/26/19 11/26/19 11/26/19 06:17 10:43 10:43 WBC 11.4 H RBC Hgb Hct MCHC RDW 17.1 H MCV MCH Lymph % (Auto) Crawford % (Auto) Crawford # Eos # Lymph # (Auto) Crawford # (Auto) Eos # (Auto) Seg Neutrophils % Seg Neuts % (Manual) Baso # (Auto) Lymphocytes % (Manual) Monocytes % (Manual) Eosinophils % (Manual) Basophils % (Manual) Seg Neutrophils # Seg Neutrophils # Man Lymphocytes # (Manual) Monocytes # (Manual) Eosinophils # (Manual) Nucleated RBC % Basophils # (Manual) PT INR APTT Heparin Anti-Xa Level ABG pH POC ABG pO2 ABG pO2 ABG HCO3 ABG O2 Saturation ABG Base Excess POC ABG pCO2 ABG Hemoglobin ABG Oxyhemoglobin ABG Chloride ABG Glucose Oxyhemoglobin Sodium Potassium Chloride Carbon Dioxide BUN 29 H Creatinine Glucose POC Glucose 107 H Lactic Acid Calcium Phosphorus Magnesium AST ALT Lactate Dehydrogenase Total Bilirubin Direct Bilirubin CK-MB (CK-2) C-Reactive Protein NT-Pro-B Natriuret Pep Total Protein Albumin Arterial Blood Glucose Urine WBC (Auto) Urine Creatinine 11/26/19 11/27/19 11/27/19 17:11 01:53 04:11 WBC RBC Hgb Hct MCHC RDW MCV MCH Lymph % (Auto) Crawford % (Auto) Crawford # Eos # Lymph # (Auto) Crawford # (Auto) Eos # (Auto) Seg Neutrophils % Seg Neuts % (Manual) Baso # (Auto) Lymphocytes % (Manual) Monocytes % (Manual) Eosinophils % (Manual) Basophils % (Manual) Seg Neutrophils # Seg Neutrophils # Man Lymphocytes # (Manual) Monocytes # (Manual) Eosinophils # (Manual) Nucleated RBC % Basophils # (Manual) PT INR APTT Heparin Anti-Xa Level ABG pH POC ABG pO2 ABG pO2 ABG HCO3 29.2 H ABG O2 Saturation ABG Base Excess 3.4 H POC ABG pCO2 ABG Hemoglobin 13.3 L ABG Oxyhemoglobin ABG Chloride ABG Glucose Oxyhemoglobin 94.5 L Sodium Potassium Chloride Carbon Dioxide BUN Creatinine Glucose POC Glucose 113 H 108 H Lactic Acid Calcium Phosphorus Magnesium AST ALT Lactate Dehydrogenase Total Bilirubin Direct Bilirubin CK-MB (CK-2) C-Reactive Protein NT-Pro-B Natriuret Pep Total Protein Albumin Arterial Blood Glucose Urine WBC (Auto) Urine Creatinine 11/27/19 11/28/19 11/28/19 05:27 05:00 05:25 WBC RBC Hgb Hct MCHC RDW MCV MCH Lymph % (Auto) Crawford % (Auto) Crawford # Eos # Lymph # (Auto) Crawford # (Auto) Eos # (Auto) Seg Neutrophils % Seg Neuts % (Manual) Baso # (Auto) Lymphocytes % (Manual) Monocytes % (Manual) Eosinophils % (Manual) Basophils % (Manual) Seg Neutrophils # Seg Neutrophils # Man Lymphocytes # (Manual) Monocytes # (Manual) Eosinophils # (Manual) Nucleated RBC % Basophils # (Manual) PT INR APTT Heparin Anti-Xa Level ABG pH POC ABG pO2 68.1 L ABG pO2 ABG HCO3 ABG O2 Saturation ABG Base Excess POC ABG pCO2 ABG Hemoglobin ABG Oxyhemoglobin 91.2 L ABG Chloride ABG Glucose Oxyhemoglobin Sodium Potassium Chloride Carbon Dioxide BUN Creatinine Glucose POC Glucose 111 H 110 H Lactic Acid Calcium Phosphorus Magnesium AST ALT Lactate Dehydrogenase Total Bilirubin Direct Bilirubin CK-MB (CK-2) C-Reactive Protein NT-Pro-B Natriuret Pep Total Protein Albumin Arterial Blood Glucose Urine WBC (Auto) Urine Creatinine 11/28/19 11/28/19 11/28/19 12:08 13:47 13:47 WBC 11.3 H RBC Hgb Hct MCHC RDW 16.1 H MCV MCH Lymph % (Auto) Crawford % (Auto) 9.9 H Crawford # 1.1 H Eos # Lymph # (Auto) Crawford # (Auto) Eos # (Auto) Seg Neutrophils % 71.4 H Seg Neuts % (Manual) Baso # (Auto) Lymphocytes % (Manual) Monocytes % (Manual) Eosinophils % (Manual) Basophils % (Manual) Seg Neutrophils # 8.1 H Seg Neutrophils # Man Lymphocytes # (Manual) Monocytes # (Manual) Eosinophils # (Manual) Nucleated RBC % Basophils # (Manual) PT INR APTT Heparin Anti-Xa Level ABG pH POC ABG pO2 ABG pO2 ABG HCO3 ABG O2 Saturation ABG Base Excess POC ABG pCO2 ABG Hemoglobin ABG Oxyhemoglobin ABG Chloride ABG Glucose Oxyhemoglobin Sodium Potassium Chloride Carbon Dioxide BUN 23 H Creatinine Glucose 123 H POC Glucose 112 H Lactic Acid Calcium Phosphorus Magnesium AST ALT Lactate Dehydrogenase Total Bilirubin Direct Bilirubin CK-MB (CK-2) C-Reactive Protein NT-Pro-B Natriuret Pep Total Protein Albumin 3.7 L Arterial Blood Glucose Urine WBC (Auto) Urine Creatinine 11/28/19 11/29/19 11/29/19 17:26 03:55 17:04 WBC RBC Hgb Hct MCHC RDW MCV MCH Lymph % (Auto) Crawford % (Auto) Crawford # Eos # Lymph # (Auto) Crawford # (Auto) Eos # (Auto) Seg Neutrophils % Seg Neuts % (Manual) Baso # (Auto) Lymphocytes % (Manual) Monocytes % (Manual) Eosinophils % (Manual) Basophils % (Manual) Seg Neutrophils # Seg Neutrophils # Man Lymphocytes # (Manual) Monocytes # (Manual) Eosinophils # (Manual) Nucleated RBC % Basophils # (Manual) PT INR APTT Heparin Anti-Xa Level ABG pH POC ABG pO2 ABG pO2 65.7 L ABG HCO3 28.3 H ABG O2 Saturation 93.9 L ABG Base Excess 3.6 H POC ABG pCO2 ABG Hemoglobin 13.3 L ABG Oxyhemoglobin ABG Chloride ABG Glucose Oxyhemoglobin 91.5 L Sodium Potassium Chloride Carbon Dioxide BUN Creatinine Glucose POC Glucose 123 H 119 H Lactic Acid Calcium Phosphorus Magnesium AST ALT Lactate Dehydrogenase Total Bilirubin Direct Bilirubin CK-MB (CK-2) C-Reactive Protein NT-Pro-B Natriuret Pep Total Protein Albumin Arterial Blood Glucose Urine WBC (Auto) Urine Creatinine 11/30/19 11/30/19 11/30/19 04:17 04:17 04:56 WBC 13.4 H RBC Hgb Hct MCHC RDW 15.6 H MCV MCH Lymph % (Auto) Crawford % (Auto) Crawford # Eos # Lymph # (Auto) Crawford # (Auto) Eos # (Auto) Seg Neutrophils % Seg Neuts % (Manual) Baso # (Auto) Lymphocytes % (Manual) Monocytes % (Manual) Eosinophils % (Manual) Basophils % (Manual) Seg Neutrophils # Seg Neutrophils # Man Lymphocytes # (Manual) Monocytes # (Manual) Eosinophils # (Manual) Nucleated RBC % Basophils # (Manual) PT INR APTT Heparin Anti-Xa Level ABG pH POC ABG pO2 ABG pO2 56.3 L ABG HCO3 29.3 H ABG O2 Saturation 91.5 L ABG Base Excess 4.7 H POC ABG pCO2 ABG Hemoglobin 12.1 L ABG Oxyhemoglobin ABG Chloride ABG Glucose Oxyhemoglobin 89.2 L Sodium 147 H Potassium Chloride Carbon Dioxide BUN 30 H Creatinine Glucose 124 H POC Glucose Lactic Acid Calcium Phosphorus Magnesium AST ALT Lactate Dehydrogenase Total Bilirubin Direct Bilirubin CK-MB (CK-2) C-Reactive Protein NT-Pro-B Natriuret Pep Total Protein Albumin 3.8 L Arterial Blood Glucose Urine WBC (Auto) Urine Creatinine 11/30/19 11/30/19 11/30/19 05:51 11:54 18:17 WBC RBC Hgb Hct MCHC RDW MCV MCH Lymph % (Auto) Crawford % (Auto) Crawford # Eos # Lymph # (Auto) Crawford # (Auto) Eos # (Auto) Seg Neutrophils % Seg Neuts % (Manual) Baso # (Auto) Lymphocytes % (Manual) Monocytes % (Manual) Eosinophils % (Manual) Basophils % (Manual) Seg Neutrophils # Seg Neutrophils # Man Lymphocytes # (Manual) Monocytes # (Manual) Eosinophils # (Manual) Nucleated RBC % Basophils # (Manual) PT INR APTT Heparin Anti-Xa Level ABG pH POC ABG pO2 ABG pO2 ABG HCO3 ABG O2 Saturation ABG Base Excess POC ABG pCO2 ABG Hemoglobin ABG Oxyhemoglobin ABG Chloride ABG Glucose Oxyhemoglobin Sodium Potassium Chloride Carbon Dioxide BUN Creatinine Glucose POC Glucose 127 H 115 H 143 H Lactic Acid Calcium Phosphorus Magnesium AST ALT Lactate Dehydrogenase Total Bilirubin Direct Bilirubin CK-MB (CK-2) C-Reactive Protein NT-Pro-B Natriuret Pep Total Protein Albumin Arterial Blood Glucose Urine WBC (Auto) Urine Creatinine 12/01/19 12/01/19 12/01/19 01:18 05:22 12:16 WBC RBC Hgb Hct MCHC RDW MCV MCH Lymph % (Auto) Crawford % (Auto) Crawford # Eos # Lymph # (Auto) Crawford # (Auto) Eos # (Auto) Seg Neutrophils % Seg Neuts % (Manual) Baso # (Auto) Lymphocytes % (Manual) Monocytes % (Manual) Eosinophils % (Manual) Basophils % (Manual) Seg Neutrophils # Seg Neutrophils # Man Lymphocytes # (Manual) Monocytes # (Manual) Eosinophils # (Manual) Nucleated RBC % Basophils # (Manual) PT INR APTT Heparin Anti-Xa Level ABG pH POC ABG pO2 ABG pO2 ABG HCO3 ABG O2 Saturation ABG Base Excess POC ABG pCO2 ABG Hemoglobin ABG Oxyhemoglobin ABG Chloride ABG Glucose Oxyhemoglobin Sodium Potassium 3.5 L Chloride 107.8 H Carbon Dioxide BUN 37 H Creatinine Glucose 157 H POC Glucose 118 H 148 H Lactic Acid Calcium 8.2 L D Phosphorus Magnesium AST 48 H ALT 60 H Lactate Dehydrogenase 194 H Total Bilirubin Direct Bilirubin CK-MB (CK-2) C-Reactive Protein 8.50 H NT-Pro-B Natriuret Pep Total Protein 5.5 L Albumin 2.8 L Arterial Blood Glucose Urine WBC (Auto) Urine Creatinine 12/01/19 12/02/19 12/02/19 18:04 00:05 05:16 WBC 11.4 H RBC Hgb Hct MCHC RDW 15.9 H MCV MCH Lymph % (Auto) Crawford % (Auto) 9.9 H Crawford # 1.1 H Eos # Lymph # (Auto) [place] # (Auto) Eos # (Auto) Seg Neutrophils % 70.3 H Seg Neuts % (Manual) Baso # (Auto) Lymphocytes % (Manual) Monocytes % (Manual) Eosinophils % (Manual) Basophils % (Manual) Seg Neutrophils # 8.0 H Seg Neutrophils # Man Lymphocytes # (Manual) Monocytes # (Manual) Eosinophils # (Manual) Nucleated RBC % Basophils # (Manual) PT INR APTT Heparin Anti-Xa Level ABG pH POC ABG pO2 ABG pO2 ABG HCO3 ABG O2 Saturation ABG Base Excess POC ABG pCO2 ABG Hemoglobin ABG Oxyhemoglobin ABG Chloride ABG Glucose Oxyhemoglobin Sodium Potassium Chloride Carbon Dioxide BUN Creatinine Glucose POC Glucose 143 H 107 H Lactic Acid Calcium Phosphorus Magnesium AST ALT Lactate Dehydrogenase Total Bilirubin Direct Bilirubin CK-MB (CK-2) C-Reactive Protein NT-Pro-B Natriuret Pep Total Protein Albumin Arterial Blood Glucose Urine WBC (Auto) Urine Creatinine 12/02/19 12/02/19 12/02/19 05:16 06:03 11:52 WBC RBC Hgb Hct MCHC RDW MCV MCH Lymph % (Auto) Crawford % (Auto) Crawford # Eos # Lymph # (Auto) Crawford # (Auto) Eos # (Auto) Seg Neutrophils % Seg Neuts % (Manual) Baso # (Auto) Lymphocytes % (Manual) Monocytes % (Manual) Eosinophils % (Manual) Basophils % (Manual) Seg Neutrophils # Seg Neutrophils # Man Lymphocytes # (Manual) Monocytes # (Manual) Eosinophils # (Manual) Nucleated RBC % Basophils # (Manual) PT INR APTT Heparin Anti-Xa Level ABG pH POC ABG pO2 ABG pO2 ABG HCO3 ABG O2 Saturation ABG Base Excess POC ABG pCO2 ABG Hemoglobin ABG Oxyhemoglobin ABG Chloride ABG Glucose Oxyhemoglobin Sodium 146 H Potassium Chloride Carbon Dioxide BUN 28 H Creatinine Glucose 123 H POC Glucose 110 H 152 H Lactic Acid Calcium Phosphorus Magnesium AST ALT Lactate Dehydrogenase Total Bilirubin Direct Bilirubin CK-MB (CK-2) C-Reactive Protein NT-Pro-B Natriuret Pep Total Protein Albumin Arterial Blood Glucose Urine WBC (Auto) Urine Creatinine 12/02/19 12/02/19 12/02/19 12:58 17:58 23:36 WBC RBC Hgb Hct MCHC RDW MCV MCH Lymph % (Auto) Crawford % (Auto) Crawford # Eos # Lymph # (Auto) Crawford # (Auto) Eos # (Auto) Seg Neutrophils % Seg Neuts % (Manual) Baso # (Auto) Lymphocytes % (Manual) Monocytes % (Manual) Eosinophils % (Manual) Basophils % (Manual) Seg Neutrophils # Seg Neutrophils # Man Lymphocytes # (Manual) Monocytes # (Manual) Eosinophils # (Manual) Nucleated RBC % Basophils # (Manual) PT INR APTT Heparin Anti-Xa Level ABG pH POC ABG pO2 78.1 L ABG pO2 ABG HCO3 ABG O2 Saturation ABG Base Excess POC ABG pCO2 ABG Hemoglobin ABG Oxyhemoglobin ABG Chloride ABG Glucose Oxyhemoglobin Sodium Potassium Chloride Carbon Dioxide BUN Creatinine Glucose POC Glucose 120 H 123 H Lactic Acid Calcium Phosphorus Magnesium AST ALT Lactate Dehydrogenase Total Bilirubin Direct Bilirubin CK-MB (CK-2) C-Reactive Protein NT-Pro-B Natriuret Pep Total Protein Albumin Arterial Blood Glucose Urine WBC (Auto) Urine Creatinine 12/03/19 12/03/19 12/03/19 06:03 06:14 11:46 WBC RBC Hgb Hct MCHC RDW MCV MCH Lymph % (Auto) Crawford % (Auto) Crawford # Eos # Lymph # (Auto) Crawford # (Auto) Eos # (Auto) Seg Neutrophils % Seg Neuts % (Manual) Baso # (Auto) Lymphocytes % (Manual) Monocytes % (Manual) Eosinophils % (Manual) Basophils % (Manual) Seg Neutrophils # Seg Neutrophils # Man Lymphocytes # (Manual) Monocytes # (Manual) Eosinophils # (Manual) Nucleated RBC % Basophils # (Manual) PT INR APTT Heparin Anti-Xa Level ABG pH POC ABG pO2 ABG pO2 ABG HCO3 ABG O2 Saturation ABG Base Excess POC ABG pCO2 ABG Hemoglobin ABG Oxyhemoglobin ABG Chloride ABG Glucose Oxyhemoglobin Sodium Potassium Chloride Carbon Dioxide BUN Creatinine Glucose POC Glucose 142 H 130 H Lactic Acid Calcium Phosphorus Magnesium AST ALT Lactate Dehydrogenase Total Bilirubin Direct Bilirubin CK-MB (CK-2) C-Reactive Protein NT-Pro-B Natriuret Pep Total Protein Albumin Arterial Blood Glucose Urine WBC (Auto) 8.0 H Urine Creatinine 12/03/19 12/03/19 12/04/19 15:50 17:39 00:04 WBC RBC Hgb Hct MCHC RDW MCV MCH Lymph % (Auto) Crawford % (Auto) Crawford # Eos # Lymph # (Auto) Crawford # (Auto) Eos # (Auto) Seg Neutrophils % Seg Neuts % (Manual) Baso # (Auto) Lymphocytes % (Manual) Monocytes % (Manual) Eosinophils % (Manual) Basophils % (Manual) Seg Neutrophils # Seg Neutrophils # Man Lymphocytes # (Manual) Monocytes # (Manual) Eosinophils # (Manual) Nucleated RBC % Basophils # (Manual) PT INR APTT Heparin Anti-Xa Level ABG pH POC ABG pO2 ABG pO2 ABG HCO3 ABG O2 Saturation ABG Base Excess POC ABG pCO2 ABG Hemoglobin ABG Oxyhemoglobin ABG Chloride ABG Glucose Oxyhemoglobin Sodium Potassium Chloride Carbon Dioxide BUN Creatinine Glucose POC Glucose 146 H 133 H Lactic Acid Calcium Phosphorus 2.40 L Magnesium AST ALT Lactate Dehydrogenase Total Bilirubin Direct Bilirubin CK-MB (CK-2) C-Reactive Protein NT-Pro-B Natriuret Pep Total Protein Albumin Arterial Blood Glucose Urine WBC (Auto) Urine Creatinine 12/04/19 12/04/19 12/04/19 03:58 03:58 05:22 WBC 12.5 H RBC Hgb 11.2 L Hct 35.2 L MCHC RDW 16.0 H MCV MCH Lymph % (Auto) Crawford % (Auto) 9.6 H Crawford # 1.2 H Eos # 0.5 H Lymph # (Auto) [place] # (Auto) Eos # (Auto) Seg Neutrophils % Seg Neuts % (Manual) Baso # (Auto) Lymphocytes % (Manual) Monocytes % (Manual) Eosinophils % (Manual) Basophils % (Manual) Seg Neutrophils # 8.6 H Seg Neutrophils # Man Lymphocytes # (Manual) Monocytes # (Manual) Eosinophils # (Manual) Nucleated RBC % Basophils # (Manual) PT INR APTT Heparin Anti-Xa Level ABG pH POC ABG pO2 ABG pO2 ABG HCO3 ABG O2 Saturation ABG Base Excess POC ABG pCO2 ABG Hemoglobin ABG Oxyhemoglobin ABG Chloride ABG Glucose Oxyhemoglobin Sodium 146 H Potassium Chloride 108.6 H Carbon Dioxide BUN 30 H Creatinine 0.7 L Glucose 121 H POC Glucose 132 H Lactic Acid Calcium Phosphorus Magnesium AST ALT Lactate Dehydrogenase Total Bilirubin Direct Bilirubin CK-MB (CK-2) C-Reactive Protein NT-Pro-B Natriuret Pep Total Protein Albumin Arterial Blood Glucose Urine WBC (Auto) Urine Creatinine 12/04/19 12/04/19 12/05/19 13:26 18:43 00:19 WBC RBC Hgb Hct MCHC RDW MCV MCH Lymph % (Auto) [place] % (Auto) Crawford # Eos # Lymph # (Auto) [place] # (Auto) Eos # (Auto) Seg Neutrophils % Seg Neuts % (Manual) Baso # (Auto) Lymphocytes % (Manual) Monocytes % (Manual) Eosinophils % (Manual) Basophils % (Manual) Seg Neutrophils # Seg Neutrophils # Man Lymphocytes # (Manual) Monocytes # (Manual) Eosinophils # (Manual) Nucleated RBC % Basophils # (Manual) PT INR APTT Heparin Anti-Xa Level ABG pH POC ABG pO2 ABG pO2 ABG HCO3 ABG O2 Saturation ABG Base Excess POC ABG pCO2 ABG Hemoglobin ABG Oxyhemoglobin ABG Chloride ABG Glucose Oxyhemoglobin Sodium Potassium Chloride Carbon Dioxide BUN Creatinine Glucose POC Glucose 185 H 156 H 150 H Lactic Acid Calcium Phosphorus Magnesium AST ALT Lactate Dehydrogenase Total Bilirubin Direct Bilirubin CK-MB (CK-2) C-Reactive Protein NT-Pro-B Natriuret Pep Total Protein Albumin Arterial Blood Glucose Urine WBC (Auto) Urine Creatinine 12/05/19 12/05/19 12/05/19 03:37 03:37 05:14 WBC 16.3 H RBC Hgb 11.4 L Hct MCHC RDW 15.6 H MCV MCH Lymph % (Auto) 9.9 L Crawford % (Auto) 9.7 H Crawford # 1.6 H Eos # Lymph # (Auto) [place] # (Auto) Eos # (Auto) Seg Neutrophils % 78.0 H Seg Neuts % (Manual) Baso # (Auto) Lymphocytes % (Manual) Monocytes % (Manual) Eosinophils % (Manual) Basophils % (Manual) Seg Neutrophils # 12.7 H Seg Neutrophils # Man Lymphocytes # (Manual) Monocytes # (Manual) Eosinophils # (Manual) Nucleated RBC % Basophils # (Manual) PT INR APTT Heparin Anti-Xa Level ABG pH POC ABG pO2 ABG pO2 ABG HCO3 ABG O2 Saturation ABG Base Excess POC ABG pCO2 ABG Hemoglobin ABG Oxyhemoglobin ABG Chloride ABG Glucose Oxyhemoglobin Sodium 146 H Potassium Chloride 107.2 H Carbon Dioxide BUN 27 H Creatinine 0.7 L Glucose 171 H POC Glucose 168 H Lactic Acid Calcium Phosphorus Magnesium AST ALT Lactate Dehydrogenase Total Bilirubin Direct Bilirubin CK-MB (CK-2) C-Reactive Protein NT-Pro-B Natriuret Pep Total Protein Albumin Arterial Blood Glucose Urine WBC (Auto) Urine Creatinine 12/05/19 12/05/19 12/05/19 12:31 18:10 23:58 WBC RBC Hgb Hct MCHC RDW MCV MCH Lymph % (Auto) [place] % (Auto) Crawford # Eos # Lymph # (Auto) [place] # (Auto) Eos # (Auto) Seg Neutrophils % Seg Neuts % (Manual) Baso # (Auto) Lymphocytes % (Manual) Monocytes % (Manual) Eosinophils % (Manual) Basophils % (Manual) Seg Neutrophils # Seg Neutrophils # Man Lymphocytes # (Manual) Monocytes # (Manual) Eosinophils # (Manual) Nucleated RBC % Basophils # (Manual) PT INR APTT Heparin Anti-Xa Level ABG pH POC ABG pO2 ABG pO2 ABG HCO3 ABG O2 Saturation ABG Base Excess POC ABG pCO2 ABG Hemoglobin ABG Oxyhemoglobin ABG Chloride ABG Glucose Oxyhemoglobin Sodium Potassium Chloride Carbon Dioxide BUN Creatinine Glucose POC Glucose 159 H 198 H 115 H Lactic Acid Calcium Phosphorus Magnesium AST ALT Lactate Dehydrogenase Total Bilirubin Direct Bilirubin CK-MB (CK-2) C-Reactive Protein NT-Pro-B Natriuret Pep Total Protein Albumin Arterial Blood Glucose Urine WBC (Auto) Urine Creatinine 12/06/19 12/06/19 12/06/19 05:24 05:24 05:25 WBC 14.9 H RBC Hgb 10.8 L Hct 34.0 L MCHC RDW 15.6 H MCV MCH Lymph % (Auto) 10.7 L [place] % (Auto) 8.3 H Crawford # 1.2 H Eos # Lymph # (Auto) [place] # (Auto) Eos # (Auto) Seg Neutrophils % 78.7 H Seg Neuts % (Manual) Baso # (Auto) Lymphocytes % (Manual) Monocytes % (Manual) Eosinophils % (Manual) Basophils % (Manual) Seg Neutrophils # 11.7 H Seg Neutrophils # Man Lymphocytes # (Manual) Monocytes # (Manual) Eosinophils # (Manual) Nucleated RBC % Basophils # (Manual) PT INR APTT Heparin Anti-Xa Level ABG pH POC ABG pO2 ABG pO2 ABG HCO3 ABG O2 Saturation ABG Base Excess POC ABG pCO2 ABG Hemoglobin ABG Oxyhemoglobin ABG Chloride ABG Glucose Oxyhemoglobin Sodium 148 H Potassium 5.1 H Chloride 107.6 H Carbon Dioxide BUN 27 H Creatinine 0.7 L Glucose 155 H POC Glucose 157 H Lactic Acid Calcium Phosphorus Magnesium AST ALT Lactate Dehydrogenase Total Bilirubin Direct Bilirubin CK-MB (CK-2) C-Reactive Protein NT-Pro-B Natriuret Pep Total Protein Albumin Arterial Blood Glucose Urine WBC (Auto) Urine Creatinine 12/07/19 12/07/19 12/07/19 00:13 05:34 11:33 WBC RBC Hgb Hct MCHC RDW MCV MCH Lymph % (Auto) [place] % (Auto) Crawford # Eos # Lymph # (Auto) [place] # (Auto) Eos # (Auto) Seg Neutrophils % Seg Neuts % (Manual) Baso # (Auto) Lymphocytes % (Manual) Monocytes % (Manual) Eosinophils % (Manual) Basophils % (Manual) Seg Neutrophils # Seg Neutrophils # Man Lymphocytes # (Manual) Monocytes # (Manual) Eosinophils # (Manual) Nucleated RBC % Basophils # (Manual) PT INR APTT Heparin Anti-Xa Level ABG pH POC ABG pO2 ABG pO2 ABG HCO3 ABG O2 Saturation ABG Base Excess POC ABG pCO2 ABG Hemoglobin ABG Oxyhemoglobin ABG Chloride ABG Glucose Oxyhemoglobin Sodium Potassium Chloride Carbon Dioxide BUN Creatinine Glucose POC Glucose 142 H 111 H 169 H Lactic Acid Calcium Phosphorus Magnesium AST ALT Lactate Dehydrogenase Total Bilirubin Direct Bilirubin CK-MB (CK-2) C-Reactive Protein NT-Pro-B Natriuret Pep Total Protein Albumin Arterial Blood Glucose Urine WBC (Auto) Urine Creatinine 12/07/19 12/07/19 12/07/19 12:41 13:25 18:19 WBC 12.4 H RBC 3.53 L Hgb 10.2 L Hct 32.1 L MCHC RDW 15.3 H MCV MCH Lymph % (Auto) 10.6 L [place] % (Auto) 7.8 H Crawford # 1.0 H Eos # Lymph # (Auto) [place] # (Auto) Eos # (Auto) Seg Neutrophils % 77.6 H Seg Neuts % (Manual) Baso # (Auto) Lymphocytes % (Manual) Monocytes % (Manual) Eosinophils % (Manual) Basophils % (Manual) Seg Neutrophils # 9.6 H Seg Neutrophils # Man Lymphocytes # (Manual) Monocytes # (Manual) Eosinophils # (Manual) Nucleated RBC % Basophils # (Manual) PT INR APTT Heparin Anti-Xa Level ABG pH POC ABG pO2 ABG pO2 ABG HCO3 ABG O2 Saturation ABG Base Excess POC ABG pCO2 ABG Hemoglobin ABG Oxyhemoglobin ABG Chloride ABG Glucose Oxyhemoglobin Sodium 149 H Potassium Chloride 108.4 H Carbon Dioxide BUN 26 H Creatinine 0.6 L Glucose 149 H POC Glucose 164 H Lactic Acid Calcium Phosphorus Magnesium 2.60 H AST 121 H ALT 145 H Lactate Dehydrogenase Total Bilirubin Direct Bilirubin CK-MB (CK-2) C-Reactive Protein NT-Pro-B Natriuret Pep Total Protein Albumin 2.6 L Arterial Blood Glucose Urine WBC (Auto) Urine Creatinine 12/07/19 12/08/19 12/08/19 22:25 00:02 03:55 WBC 13.3 H RBC 3.40 L Hgb 9.7 L Hct 30.8 L MCHC 31 L RDW 15.5 H MCV MCH Lymph % (Auto) [place] % (Auto) 8.1 H Crawford # 1.1 H Eos # Lymph # (Auto) [place] # (Auto) Eos # (Auto) Seg Neutrophils % 73.0 H Seg Neuts % (Manual) Baso # (Auto) Lymphocytes % (Manual) Monocytes % (Manual) Eosinophils % (Manual) Basophils % (Manual) Seg Neutrophils # 9.7 H Seg Neutrophils # Man Lymphocytes # (Manual) Monocytes # (Manual) Eosinophils # (Manual) Nucleated RBC % Basophils # (Manual) PT INR APTT Heparin Anti-Xa Level 0.12 L ABG pH POC ABG pO2 ABG pO2 ABG HCO3 ABG O2 Saturation ABG Base Excess POC ABG pCO2 ABG Hemoglobin ABG Oxyhemoglobin ABG Chloride ABG Glucose Oxyhemoglobin Sodium Potassium Chloride Carbon Dioxide BUN Creatinine Glucose POC Glucose 151 H Lactic Acid Calcium Phosphorus Magnesium AST ALT Lactate Dehydrogenase Total Bilirubin Direct Bilirubin CK-MB (CK-2) C-Reactive Protein NT-Pro-B Natriuret Pep Total Protein Albumin Arterial Blood Glucose Urine WBC (Auto) Urine Creatinine 12/08/19 12/08/19 12/08/19 03:55 05:21 06:01 WBC RBC Hgb Hct MCHC RDW MCV MCH Lymph % (Auto) [place] % (Auto) [place] # Eos # Lymph # (Auto) [place] # (Auto) Eos # (Auto) Seg Neutrophils % Seg Neuts % (Manual) Baso # (Auto) Lymphocytes % (Manual) Monocytes % (Manual) Eosinophils % (Manual) Basophils % (Manual) Seg Neutrophils # Seg Neutrophils # Man Lymphocytes # (Manual) Monocytes # (Manual) Eosinophils # (Manual) Nucleated RBC % Basophils # (Manual) PT INR APTT Heparin Anti-Xa Level 0.20 L ABG pH POC ABG pO2 ABG pO2 ABG HCO3 ABG O2 Saturation ABG Base Excess POC ABG pCO2 ABG Hemoglobin ABG Oxyhemoglobin ABG Chloride ABG Glucose Oxyhemoglobin Sodium 149 H Potassium Chloride 108.0 H Carbon Dioxide BUN 28 H Creatinine 0.6 L Glucose 144 H POC Glucose 143 H Lactic Acid Calcium Phosphorus Magnesium AST 98 H ALT 145 H Lactate Dehydrogenase Total Bilirubin Direct Bilirubin CK-MB (CK-2) C-Reactive Protein NT-Pro-B Natriuret Pep Total Protein 6.0 L Albumin 2.4 L Arterial Blood Glucose Urine WBC (Auto) Urine Creatinine 12/08/19 12/08/19 12/08/19 12:08 18:11 23:53 WBC RBC Hgb Hct MCHC RDW MCV MCH Lymph % (Auto) [place] % (Auto) Crawford # Eos # Lymph # (Auto) [place] # (Auto) Eos # (Auto) Seg Neutrophils % Seg Neuts % (Manual) Baso # (Auto) Lymphocytes % (Manual) Monocytes % (Manual) Eosinophils % (Manual) Basophils % (Manual) Seg Neutrophils # Seg Neutrophils # Man Lymphocytes # (Manual) Monocytes # (Manual) Eosinophils # (Manual) Nucleated RBC % Basophils # (Manual) PT INR APTT Heparin Anti-Xa Level ABG pH POC ABG pO2 ABG pO2 ABG HCO3 ABG O2 Saturation ABG Base Excess POC ABG pCO2 ABG Hemoglobin ABG Oxyhemoglobin ABG Chloride ABG Glucose Oxyhemoglobin Sodium Potassium Chloride Carbon Dioxide BUN Creatinine Glucose POC Glucose 172 H 122 H 162 H Lactic Acid Calcium Phosphorus Magnesium AST ALT Lactate Dehydrogenase Total Bilirubin Direct Bilirubin CK-MB (CK-2) C-Reactive Protein NT-Pro-B Natriuret Pep Total Protein Albumin Arterial Blood Glucose Urine WBC (Auto) Urine Creatinine 12/09/19 12/09/19 12/09/19 04:03 04:03 05:53 WBC RBC Hgb 9.1 L Hct 28.9 L MCHC RDW MCV MCH Lymph % (Auto) [place] % (Auto) Crawford # Eos # Lymph # (Auto) [place] # (Auto) Eos # (Auto) Seg Neutrophils % Seg Neuts % (Manual) Baso # (Auto) Lymphocytes % (Manual) Monocytes % (Manual) Eosinophils % (Manual) Basophils % (Manual) Seg Neutrophils # Seg Neutrophils # Man Lymphocytes # (Manual) Monocytes # (Manual) Eosinophils # (Manual) Nucleated RBC % Basophils # (Manual) PT INR APTT Heparin Anti-Xa Level 0.15 L ABG pH POC ABG pO2 ABG pO2 ABG HCO3 ABG O2 Saturation ABG Base Excess POC ABG pCO2 ABG Hemoglobin ABG Oxyhemoglobin ABG Chloride ABG Glucose Oxyhemoglobin Sodium Potassium Chloride Carbon Dioxide BUN Creatinine Glucose POC Glucose 124 H Lactic Acid Calcium Phosphorus Magnesium AST ALT Lactate Dehydrogenase Total Bilirubin Direct Bilirubin CK-MB (CK-2) C-Reactive Protein NT-Pro-B Natriuret Pep Total Protein Albumin Arterial Blood Glucose Urine WBC (Auto) Urine Creatinine 12/09/19 12/09/19 12/10/19 09:43 12:41 00:13 WBC RBC Hgb Hct MCHC RDW MCV MCH Lymph % (Auto) [place] % (Auto) Crawford # Eos # Lymph # (Auto) [place] # (Auto) Eos # (Auto) Seg Neutrophils % Seg Neuts % (Manual) Baso # (Auto) Lymphocytes % (Manual) Monocytes % (Manual) Eosinophils % (Manual) Basophils % (Manual) Seg Neutrophils # Seg Neutrophils # Man Lymphocytes # (Manual) Monocytes # (Manual) Eosinophils # (Manual) Nucleated RBC % Basophils # (Manual) PT INR APTT Heparin Anti-Xa Level ABG pH POC ABG pO2 ABG pO2 ABG HCO3 ABG O2 Saturation ABG Base Excess POC ABG pCO2 ABG Hemoglobin ABG Oxyhemoglobin ABG Chloride ABG Glucose Oxyhemoglobin Sodium Potassium Chloride Carbon Dioxide BUN 25 H Creatinine 0.6 L Glucose 131 H POC Glucose 109 H 120 H Lactic Acid Calcium Phosphorus Magnesium AST ALT Lactate Dehydrogenase Total Bilirubin Direct Bilirubin CK-MB (CK-2) C-Reactive Protein NT-Pro-B Natriuret Pep Total Protein Albumin Arterial Blood Glucose Urine WBC (Auto) Urine Creatinine 12/10/19 12/10/19 12/10/19 04:14 04:14 12:00 WBC 13.3 H RBC 3.34 L Hgb 9.6 L Hct 30.4 L MCHC RDW 15.4 H MCV MCH Lymph % (Auto) [place] % (Auto) Crawford # Eos # Lymph # (Auto) [place] # (Auto) Eos # (Auto) Seg Neutrophils % Seg Neuts % (Manual) 75.0 H Baso # (Auto) Lymphocytes % (Manual) 13.0 L Monocytes % (Manual) 8.0 H Eosinophils % (Manual) Basophils % (Manual) 2.0 H Seg Neutrophils # Seg Neutrophils # Man 10.0 H Lymphocytes # (Manual) Monocytes # (Manual) 1.1 H Eosinophils # (Manual) Nucleated RBC % Basophils # (Manual) 0.3 H PT INR APTT Heparin Anti-Xa Level ABG pH POC ABG pO2 ABG pO2 ABG HCO3 ABG O2 Saturation ABG Base Excess POC ABG pCO2 ABG Hemoglobin ABG Oxyhemoglobin ABG Chloride ABG Glucose Oxyhemoglobin Sodium 147 H Potassium Chloride 108.3 H Carbon Dioxide BUN 21 H Creatinine 0.6 L Glucose 104 H POC Glucose 133 H Lactic Acid Calcium Phosphorus Magnesium AST ALT Lactate Dehydrogenase Total Bilirubin Direct Bilirubin CK-MB (CK-2) C-Reactive Protein NT-Pro-B Natriuret Pep Total Protein Albumin Arterial Blood Glucose Urine WBC (Auto) Urine Creatinine 12/10/19 12/10/19 12/11/19 18:44 21:20 00:08 WBC 14.9 H RBC 3.36 L Hgb 9.6 L Hct 30.5 L MCHC RDW 15.4 H MCV MCH Lymph % (Auto) [place] % (Auto) Crawford # Eos # Lymph # (Auto) [place] # (Auto) Eos # (Auto) Seg Neutrophils % Seg Neuts % (Manual) Baso # (Auto) Lymphocytes % (Manual) Monocytes % (Manual) Eosinophils % (Manual) Basophils % (Manual) Seg Neutrophils # Seg Neutrophils # Man Lymphocytes # (Manual) Monocytes # (Manual) Eosinophils # (Manual) Nucleated RBC % Basophils # (Manual) PT INR APTT Heparin Anti-Xa Level ABG pH POC ABG pO2 ABG pO2 ABG HCO3 ABG O2 Saturation ABG Base Excess POC ABG pCO2 ABG Hemoglobin ABG Oxyhemoglobin ABG Chloride ABG Glucose Oxyhemoglobin Sodium Potassium Chloride Carbon Dioxide BUN Creatinine Glucose POC Glucose 119 H 134 H Lactic Acid Calcium Phosphorus Magnesium AST ALT Lactate Dehydrogenase Total Bilirubin Direct Bilirubin CK-MB (CK-2) C-Reactive Protein NT-Pro-B Natriuret Pep Total Protein Albumin Arterial Blood Glucose Urine WBC (Auto) Urine Creatinine 12/11/19 12/11/19 12/11/19 03:54 07:28 08:36 WBC 11.9 H RBC 3.25 L Hgb 9.6 L Hct 29.2 L MCHC RDW 15.7 H MCV MCH Lymph % (Auto) [place] % (Auto) Crawford # Eos # Lymph # (Auto) [place] # (Auto) Eos # (Auto) Seg Neutrophils % Seg Neuts % (Manual) Baso # (Auto) Lymphocytes % (Manual) Monocytes % (Manual) Eosinophils % (Manual) Basophils % (Manual) Seg Neutrophils # Seg Neutrophils # Man Lymphocytes # (Manual) Monocytes # (Manual) Eosinophils # (Manual) Nucleated RBC % Basophils # (Manual) PT INR APTT Heparin Anti-Xa Level 0.10 L 0.16 L ABG pH POC ABG pO2 ABG pO2 ABG HCO3 ABG O2 Saturation ABG Base Excess POC ABG pCO2 ABG Hemoglobin ABG Oxyhemoglobin ABG Chloride ABG Glucose Oxyhemoglobin Sodium Potassium Chloride Carbon Dioxide BUN Creatinine Glucose POC Glucose Lactic Acid Calcium Phosphorus Magnesium AST ALT Lactate Dehydrogenase Total Bilirubin Direct Bilirubin CK-MB (CK-2) C-Reactive Protein NT-Pro-B Natriuret Pep Total Protein Albumin Arterial Blood Glucose Urine WBC (Auto) Urine Creatinine 12/11/19 12/11/19 12/11/19 08:36 11:45 17:15 WBC RBC Hgb Hct MCHC RDW MCV MCH Lymph % (Auto) [place] % (Auto) [place] # Eos # Lymph # (Auto) [place] # (Auto) Eos # (Auto) Seg Neutrophils % Seg Neuts % (Manual) Baso # (Auto) Lymphocytes % (Manual) Monocytes % (Manual) Eosinophils % (Manual) Basophils % (Manual) Seg Neutrophils # Seg Neutrophils # Man Lymphocytes # (Manual) Monocytes # (Manual) Eosinophils # (Manual) Nucleated RBC % Basophils # (Manual) PT INR APTT Heparin Anti-Xa Level ABG pH POC ABG pO2 ABG pO2 ABG HCO3 ABG O2 Saturation ABG Base Excess POC ABG pCO2 ABG Hemoglobin ABG Oxyhemoglobin ABG Chloride ABG Glucose Oxyhemoglobin Sodium Potassium Chloride Carbon Dioxide BUN Creatinine 0.5 L Glucose 128 H POC Glucose 136 H 109 H Lactic Acid Calcium Phosphorus Magnesium AST ALT Lactate Dehydrogenase Total Bilirubin Direct Bilirubin CK-MB (CK-2) C-Reactive Protein NT-Pro-B Natriuret Pep Total Protein Albumin Arterial Blood Glucose Urine WBC (Auto) Urine Creatinine 12/12/19 12/12/19 12/12/19 00:03 05:53 05:53 WBC RBC Hgb 8.8 L Hct 27.6 L MCHC RDW MCV MCH Lymph % (Auto) [place] % (Auto) Crawford # Eos # Lymph # (Auto) [place] # (Auto) Eos # (Auto) Seg Neutrophils % Seg Neuts % (Manual) Baso # (Auto) Lymphocytes % (Manual) Monocytes % (Manual) Eosinophils % (Manual) Basophils % (Manual) Seg Neutrophils # Seg Neutrophils # Man Lymphocytes # (Manual) Monocytes # (Manual) Eosinophils # (Manual) Nucleated RBC % Basophils # (Manual) PT INR APTT Heparin Anti-Xa Level 0.22 L ABG pH POC ABG pO2 ABG pO2 ABG HCO3 ABG O2 Saturation ABG Base Excess POC ABG pCO2 ABG Hemoglobin ABG Oxyhemoglobin ABG Chloride ABG Glucose Oxyhemoglobin Sodium Potassium Chloride Carbon Dioxide BUN Creatinine Glucose POC Glucose 116 H Lactic Acid Calcium Phosphorus Magnesium AST ALT Lactate Dehydrogenase Total Bilirubin Direct Bilirubin CK-MB (CK-2) C-Reactive Protein NT-Pro-B Natriuret Pep Total Protein Albumin Arterial Blood Glucose Urine WBC (Auto) Urine Creatinine 12/12/19 12/12/19 12/12/19 09:38 12:18 17:44 WBC RBC Hgb Hct MCHC RDW MCV MCH Lymph % (Auto) [place] % (Auto) Crawford # Eos # Lymph # (Auto) [place] # (Auto) Eos # (Auto) Seg Neutrophils % Seg Neuts % (Manual) Baso # (Auto) Lymphocytes % (Manual) Monocytes % (Manual) Eosinophils % (Manual) Basophils % (Manual) Seg Neutrophils # Seg Neutrophils # Man Lymphocytes # (Manual) Monocytes # (Manual) Eosinophils # (Manual) Nucleated RBC % Basophils # (Manual) PT INR APTT Heparin Anti-Xa Level ABG pH POC ABG pO2 ABG pO2 ABG HCO3 ABG O2 Saturation ABG Base Excess POC ABG pCO2 ABG Hemoglobin ABG Oxyhemoglobin ABG Chloride ABG Glucose Oxyhemoglobin Sodium Potassium Chloride Carbon Dioxide BUN Creatinine Glucose POC Glucose 115 H 146 H 146 H Lactic Acid Calcium Phosphorus Magnesium AST ALT Lactate Dehydrogenase Total Bilirubin Direct Bilirubin CK-MB (CK-2) C-Reactive Protein NT-Pro-B Natriuret Pep Total Protein Albumin Arterial Blood Glucose Urine WBC (Auto) Urine Creatinine 12/12/19 12/13/19 12/13/19 23:33 05:32 05:32 WBC 13.1 H RBC 3.27 L Hgb 9.5 L Hct 29.3 L MCHC RDW 15.6 H MCV MCH Lymph % (Auto) [place] % (Auto) Crawford # Eos # Lymph # (Auto) [place] # (Auto) Eos # (Auto) Seg Neutrophils % Seg Neuts % (Manual) 74.0 H Baso # (Auto) Lymphocytes % (Manual) 8.0 L Monocytes % (Manual) 9.0 H Eosinophils % (Manual) 5.0 H Basophils % (Manual) Seg Neutrophils # Seg Neutrophils # Man 9.7 H Lymphocytes # (Manual) 1.0 L Monocytes # (Manual) 1.2 H Eosinophils # (Manual) 0.7 H Nucleated RBC % Basophils # (Manual) PT INR APTT Heparin Anti-Xa Level 0.20 L ABG pH POC ABG pO2 ABG pO2 ABG HCO3 ABG O2 Saturation ABG Base Excess POC ABG pCO2 ABG Hemoglobin ABG Oxyhemoglobin ABG Chloride ABG Glucose Oxyhemoglobin Sodium Potassium Chloride Carbon Dioxide BUN Creatinine Glucose POC Glucose 126 H Lactic Acid Calcium Phosphorus Magnesium AST ALT Lactate Dehydrogenase Total Bilirubin Direct Bilirubin CK-MB (CK-2) C-Reactive Protein NT-Pro-B Natriuret Pep Total Protein Albumin Arterial Blood Glucose Urine WBC (Auto) Urine Creatinine 12/13/19 12/13/19 12/13/19 05:32 05:46 11:57 WBC RBC Hgb Hct MCHC RDW MCV MCH Lymph % (Auto) [place] % (Auto) [place] # Eos # Lymph # (Auto) [place] # (Auto) Eos # (Auto) Seg Neutrophils % Seg Neuts % (Manual) Baso # (Auto) Lymphocytes % (Manual) Monocytes % (Manual) Eosinophils % (Manual) Basophils % (Manual) Seg Neutrophils # Seg Neutrophils # Man Lymphocytes # (Manual) Monocytes # (Manual) Eosinophils # (Manual) Nucleated RBC % Basophils # (Manual) PT INR APTT Heparin Anti-Xa Level ABG pH POC ABG pO2 ABG pO2 ABG HCO3 ABG O2 Saturation ABG Base Excess POC ABG pCO2 ABG Hemoglobin ABG Oxyhemoglobin ABG Chloride ABG Glucose Oxyhemoglobin Sodium Potassium Chloride Carbon Dioxide 31 H BUN Creatinine 0.6 L Glucose 114 H POC Glucose 118 H 133 H Lactic Acid Calcium Phosphorus Magnesium AST ALT Lactate Dehydrogenase Total Bilirubin Direct Bilirubin CK-MB (CK-2) C-Reactive Protein NT-Pro-B Natriuret Pep Total Protein Albumin Arterial Blood Glucose Urine WBC (Auto) Urine Creatinine 12/13/19 12/13/19 12/14/19 17:44 23:46 05:32 WBC RBC Hgb Hct MCHC RDW MCV MCH Lymph % (Auto) [place] % (Auto) Crawford # Eos # Lymph # (Auto) [place] # (Auto) Eos # (Auto) Seg Neutrophils % Seg Neuts % (Manual) Baso # (Auto) Lymphocytes % (Manual) Monocytes % (Manual) Eosinophils % (Manual) Basophils % (Manual) Seg Neutrophils # Seg Neutrophils # Man Lymphocytes # (Manual) Monocytes # (Manual) Eosinophils # (Manual) Nucleated RBC % Basophils # (Manual) PT INR APTT Heparin Anti-Xa Level ABG pH POC ABG pO2 ABG pO2 ABG HCO3 ABG O2 Saturation ABG Base Excess POC ABG pCO2 ABG Hemoglobin ABG Oxyhemoglobin ABG Chloride ABG Glucose Oxyhemoglobin Sodium Potassium Chloride Carbon Dioxide BUN Creatinine Glucose POC Glucose 161 H 126 H 139 H Lactic Acid Calcium Phosphorus Magnesium AST ALT Lactate Dehydrogenase Total Bilirubin Direct Bilirubin CK-MB (CK-2) C-Reactive Protein NT-Pro-B Natriuret Pep Total Protein Albumin Arterial Blood Glucose Urine WBC (Auto) Urine Creatinine 12/14/19 12/14/19 12/14/19 06:03 06:03 09:37 WBC RBC Hgb 9.6 L Hct 30.4 L MCHC RDW MCV MCH Lymph % (Auto) [place] % (Auto) Crawford # Eos # Lymph # (Auto) [place] # (Auto) Eos # (Auto) Seg Neutrophils % Seg Neuts % (Manual) Baso # (Auto) Lymphocytes % (Manual) Monocytes % (Manual) Eosinophils % (Manual) Basophils % (Manual) Seg Neutrophils # Seg Neutrophils # Man Lymphocytes # (Manual) Monocytes # (Manual) Eosinophils # (Manual) Nucleated RBC % Basophils # (Manual) PT INR APTT Heparin Anti-Xa Level 0.24 L ABG pH POC ABG pO2 ABG pO2 ABG HCO3 ABG O2 Saturation ABG Base Excess POC ABG pCO2 ABG Hemoglobin ABG Oxyhemoglobin ABG Chloride ABG Glucose Oxyhemoglobin Sodium Potassium Chloride Carbon Dioxide BUN Creatinine 0.6 L Glucose 162 H POC Glucose Lactic Acid Calcium Phosphorus Magnesium AST 71 H ALT 118 H Lactate Dehydrogenase Total Bilirubin Direct Bilirubin CK-MB (CK-2) C-Reactive Protein NT-Pro-B Natriuret Pep Total Protein 6.2 L Albumin 2.3 L Arterial Blood Glucose Urine WBC (Auto) Urine Creatinine 12/14/19 12/14/19 12/15/19 12:06 18:18 00:19 WBC RBC Hgb Hct MCHC RDW MCV MCH Lymph % (Auto) Crawford % (Auto) Crawford # Eos # Lymph # (Auto) Crawford # (Auto) Eos # (Auto) Seg Neutrophils % Seg Neuts % (Manual) Baso # (Auto) Lymphocytes % (Manual) Monocytes % (Manual) Eosinophils % (Manual) Basophils % (Manual) Seg Neutrophils # Seg Neutrophils # Man Lymphocytes # (Manual) Monocytes # (Manual) Eosinophils # (Manual) Nucleated RBC % Basophils # (Manual) PT INR APTT Heparin Anti-Xa Level ABG pH POC ABG pO2 ABG pO2 ABG HCO3 ABG O2 Saturation ABG Base Excess POC ABG pCO2 ABG Hemoglobin ABG Oxyhemoglobin ABG Chloride ABG Glucose Oxyhemoglobin Sodium Potassium Chloride Carbon Dioxide BUN Creatinine Glucose POC Glucose 147 H 166 H 123 H Lactic Acid Calcium Phosphorus Magnesium AST ALT Lactate Dehydrogenase Total Bilirubin Direct Bilirubin CK-MB (CK-2) C-Reactive Protein NT-Pro-B Natriuret Pep Total Protein Albumin Arterial Blood Glucose Urine WBC (Auto) Urine Creatinine 12/15/19 12/15/19 12/15/19 05:28 05:29 05:29 WBC 14.9 H RBC 3.19 L Hgb 9.1 L Hct 28.7 L MCHC RDW 16.0 H MCV MCH Lymph % (Auto) Crawford % (Auto) Crawford # Eos # Lymph # (Auto) [place] # (Auto) Eos # (Auto) Seg Neutrophils % Seg Neuts % (Manual) Baso # (Auto) Lymphocytes % (Manual) Monocytes % (Manual) Eosinophils % (Manual) Basophils % (Manual) Seg Neutrophils # Seg Neutrophils # Man Lymphocytes # (Manual) Monocytes # (Manual) Eosinophils # (Manual) Nucleated RBC % Basophils # (Manual) PT INR APTT Heparin Anti-Xa Level 0.19 L ABG pH POC ABG pO2 ABG pO2 ABG HCO3 ABG O2 Saturation ABG Base Excess POC ABG pCO2 ABG Hemoglobin ABG Oxyhemoglobin ABG Chloride ABG Glucose Oxyhemoglobin Sodium Potassium Chloride Carbon Dioxide BUN Creatinine 0.6 L Glucose 110 H POC Glucose Lactic Acid Calcium Phosphorus Magnesium AST ALT Lactate Dehydrogenase Total Bilirubin Direct Bilirubin CK-MB (CK-2) C-Reactive Protein NT-Pro-B Natriuret Pep Total Protein Albumin Arterial Blood Glucose Urine WBC (Auto) Urine Creatinine 12/15/19 12/15/19 12/15/19 05:53 11:50 17:26 WBC RBC Hgb Hct MCHC RDW MCV MCH Lymph % (Auto) [place] % (Auto) Crawford # Eos # Lymph # (Auto) [place] # (Auto) Eos # (Auto) Seg Neutrophils % Seg Neuts % (Manual) Baso # (Auto) Lymphocytes % (Manual) Monocytes % (Manual) Eosinophils % (Manual) Basophils % (Manual) Seg Neutrophils # Seg Neutrophils # Man Lymphocytes # (Manual) Monocytes # (Manual) Eosinophils # (Manual) Nucleated RBC % Basophils # (Manual) PT INR APTT Heparin Anti-Xa Level ABG pH POC ABG pO2 ABG pO2 ABG HCO3 ABG O2 Saturation ABG Base Excess POC ABG pCO2 ABG Hemoglobin ABG Oxyhemoglobin ABG Chloride ABG Glucose Oxyhemoglobin Sodium Potassium Chloride Carbon Dioxide BUN Creatinine Glucose POC Glucose 119 H 132 H 128 H Lactic Acid Calcium Phosphorus Magnesium AST ALT Lactate Dehydrogenase Total Bilirubin Direct Bilirubin CK-MB (CK-2) C-Reactive Protein NT-Pro-B Natriuret Pep Total Protein Albumin Arterial Blood Glucose Urine WBC (Auto) Urine Creatinine 12/15/19 12/16/19 12/16/19 23:11 05:30 05:46 WBC RBC Hgb 8.8 L Hct 27.9 L MCHC RDW MCV MCH Lymph % (Auto) [place] % (Auto) Crawford # Eos # Lymph # (Auto) [place] # (Auto) Eos # (Auto) Seg Neutrophils % Seg Neuts % (Manual) Baso # (Auto) Lymphocytes % (Manual) Monocytes % (Manual) Eosinophils % (Manual) Basophils % (Manual) Seg Neutrophils # Seg Neutrophils # Man Lymphocytes # (Manual) Monocytes # (Manual) Eosinophils # (Manual) Nucleated RBC % Basophils # (Manual) PT INR APTT Heparin Anti-Xa Level ABG pH POC ABG pO2 ABG pO2 ABG HCO3 ABG O2 Saturation ABG Base Excess POC ABG pCO2 ABG Hemoglobin ABG Oxyhemoglobin ABG Chloride ABG Glucose Oxyhemoglobin Sodium Potassium Chloride Carbon Dioxide BUN Creatinine Glucose POC Glucose 150 H 134 H Lactic Acid Calcium Phosphorus Magnesium AST ALT Lactate Dehydrogenase Total Bilirubin Direct Bilirubin CK-MB (CK-2) C-Reactive Protein NT-Pro-B Natriuret Pep Total Protein Albumin Arterial Blood Glucose Urine WBC (Auto) Urine Creatinine 12/16/19 12/16/19 12/16/19 05:46 05:46 11:44 WBC RBC Hgb Hct MCHC RDW MCV MCH Lymph % (Auto) [place] % (Auto) [place] # Eos # Lymph # (Auto) [place] # (Auto) Eos # (Auto) Seg Neutrophils % Seg Neuts % (Manual) Baso # (Auto) Lymphocytes % (Manual) Monocytes % (Manual) Eosinophils % (Manual) Basophils % (Manual) Seg Neutrophils # Seg Neutrophils # Man Lymphocytes # (Manual) Monocytes # (Manual) Eosinophils # (Manual) Nucleated RBC % Basophils # (Manual) PT INR APTT Heparin Anti-Xa Level 0.20 L ABG pH POC ABG pO2 ABG pO2 ABG HCO3 ABG O2 Saturation ABG Base Excess POC ABG pCO2 ABG Hemoglobin ABG Oxyhemoglobin ABG Chloride ABG Glucose Oxyhemoglobin Sodium Potassium Chloride Carbon Dioxide 31 H BUN Creatinine 0.5 L Glucose 147 H POC Glucose 164 H Lactic Acid Calcium Phosphorus Magnesium AST ALT Lactate Dehydrogenase Total Bilirubin Direct Bilirubin CK-MB (CK-2) C-Reactive Protein NT-Pro-B Natriuret Pep Total Protein Albumin Arterial Blood Glucose Urine WBC (Auto) Urine Creatinine 12/16/19 12/16/19 12/17/19 17:17 23:49 05:30 WBC 13.9 H RBC 3.27 L Hgb 9.4 L Hct 29.2 L MCHC RDW 16.0 H MCV MCH Lymph % (Auto) [place] % (Auto) 8.8 H [place] # Eos # Lymph # (Auto) [place] # (Auto) 1.2 H Eos # (Auto) 0.5 H Seg Neutrophils % 70.5 H Seg Neuts % (Manual) Baso # (Auto) 0.2 H Lymphocytes % (Manual) Monocytes % (Manual) Eosinophils % (Manual) Basophils % (Manual) Seg Neutrophils # 9.8 H Seg Neutrophils # Man Lymphocytes # (Manual) Monocytes # (Manual) Eosinophils # (Manual) Nucleated RBC % Basophils # (Manual) PT INR APTT Heparin Anti-Xa Level ABG pH POC ABG pO2 ABG pO2 ABG HCO3 ABG O2 Saturation ABG Base Excess POC ABG pCO2 ABG Hemoglobin ABG Oxyhemoglobin ABG Chloride ABG Glucose Oxyhemoglobin Sodium Potassium Chloride Carbon Dioxide BUN Creatinine Glucose POC Glucose 162 H 144 H Lactic Acid Calcium Phosphorus Magnesium AST ALT Lactate Dehydrogenase Total Bilirubin Direct Bilirubin CK-MB (CK-2) C-Reactive Protein NT-Pro-B Natriuret Pep Total Protein Albumin Arterial Blood Glucose Urine WBC (Auto) Urine Creatinine 12/17/19 12/17/19 12/17/19 05:30 06:06 11:50 WBC RBC Hgb Hct MCHC RDW MCV MCH Lymph % (Auto) [place] % (Auto) [place] # Eos # Lymph # (Auto) [place] # (Auto) Eos # (Auto) Seg Neutrophils % Seg Neuts % (Manual) Baso # (Auto) Lymphocytes % (Manual) Monocytes % (Manual) Eosinophils % (Manual) Basophils % (Manual) Seg Neutrophils # Seg Neutrophils # Man Lymphocytes # (Manual) Monocytes # (Manual) Eosinophils # (Manual) Nucleated RBC % Basophils # (Manual) PT INR APTT Heparin Anti-Xa Level ABG pH POC ABG pO2 ABG pO2 ABG HCO3 ABG O2 Saturation ABG Base Excess POC ABG pCO2 ABG Hemoglobin ABG Oxyhemoglobin ABG Chloride ABG Glucose Oxyhemoglobin Sodium Potassium Chloride 97.4 L Carbon Dioxide 32 H BUN Creatinine 0.5 L Glucose 135 H POC Glucose 151 H 140 H Lactic Acid Calcium Phosphorus Magnesium AST ALT Lactate Dehydrogenase Total Bilirubin Direct Bilirubin CK-MB (CK-2) C-Reactive Protein NT-Pro-B Natriuret Pep Total Protein Albumin Arterial Blood Glucose Urine WBC (Auto) Urine Creatinine 12/17/19 12/17/19 12/18/19 17:50 23:46 05:17 WBC RBC Hgb 8.8 L Hct 28.0 L MCHC RDW MCV MCH Lymph % (Auto) [place] % (Auto) [place] # Eos # Lymph # (Auto) [place] # (Auto) Eos # (Auto) Seg Neutrophils % Seg Neuts % (Manual) Baso # (Auto) Lymphocytes % (Manual) Monocytes % (Manual) Eosinophils % (Manual) Basophils % (Manual) Seg Neutrophils # Seg Neutrophils # Man Lymphocytes # (Manual) Monocytes # (Manual) Eosinophils # (Manual) Nucleated RBC % Basophils # (Manual) PT INR APTT Heparin Anti-Xa Level ABG pH POC ABG pO2 ABG pO2 ABG HCO3 ABG O2 Saturation ABG Base Excess POC ABG pCO2 ABG Hemoglobin ABG Oxyhemoglobin ABG Chloride ABG Glucose Oxyhemoglobin Sodium Potassium Chloride Carbon Dioxide BUN Creatinine Glucose POC Glucose 158 H 150 H Lactic Acid Calcium Phosphorus Magnesium AST ALT Lactate Dehydrogenase Total Bilirubin Direct Bilirubin CK-MB (CK-2) C-Reactive Protein NT-Pro-B Natriuret Pep Total Protein Albumin Arterial Blood Glucose Urine WBC (Auto) Urine Creatinine 12/18/19 12/18/19 12/18/19 05:17 05:49 11:12 WBC RBC Hgb Hct MCHC RDW MCV MCH Lymph % (Auto) [place] % (Auto) [place] # Eos # Lymph # (Auto) [place] # (Auto) Eos # (Auto) Seg Neutrophils % Seg Neuts % (Manual) Baso # (Auto) Lymphocytes % (Manual) Monocytes % (Manual) Eosinophils % (Manual) Basophils % (Manual) Seg Neutrophils # Seg Neutrophils # Man Lymphocytes # (Manual) Monocytes # (Manual) Eosinophils # (Manual) Nucleated RBC % Basophils # (Manual) PT INR APTT Heparin Anti-Xa Level 0.16 L ABG pH POC ABG pO2 ABG pO2 ABG HCO3 ABG O2 Saturation ABG Base Excess POC ABG pCO2 ABG Hemoglobin ABG Oxyhemoglobin ABG Chloride ABG Glucose Oxyhemoglobin Sodium Potassium Chloride Carbon Dioxide BUN Creatinine Glucose POC Glucose 127 H 191 H Lactic Acid Calcium Phosphorus Magnesium AST ALT Lactate Dehydrogenase Total Bilirubin Direct Bilirubin CK-MB (CK-2) C-Reactive Protein NT-Pro-B Natriuret Pep Total Protein Albumin Arterial Blood Glucose Urine WBC (Auto) Urine Creatinine 12/18/19 12/18/19 12/19/19 17:03 20:16 00:08 WBC RBC Hgb Hct MCHC RDW MCV MCH Lymph % (Auto) [place] % (Auto) [place] # Eos # Lymph # (Auto) [place] # (Auto) Eos # (Auto) Seg Neutrophils % Seg Neuts % (Manual) Baso # (Auto) Lymphocytes % (Manual) Monocytes % (Manual) Eosinophils % (Manual) Basophils % (Manual) Seg Neutrophils # Seg Neutrophils # Man Lymphocytes # (Manual) Monocytes # (Manual) Eosinophils # (Manual) Nucleated RBC % Basophils # (Manual) PT INR APTT Heparin Anti-Xa Level ABG pH POC ABG pO2 ABG pO2 ABG HCO3 ABG O2 Saturation ABG Base Excess POC ABG pCO2 ABG Hemoglobin ABG Oxyhemoglobin ABG Chloride ABG Glucose Oxyhemoglobin Sodium Potassium Chloride Carbon Dioxide BUN Creatinine Glucose POC Glucose 133 H 128 H 129 H Lactic Acid Calcium Phosphorus Magnesium AST ALT Lactate Dehydrogenase Total Bilirubin Direct Bilirubin CK-MB (CK-2) C-Reactive Protein NT-Pro-B Natriuret Pep Total Protein Albumin Arterial Blood Glucose Urine WBC (Auto) Urine Creatinine 12/19/19 12/19/19 12/19/19 04:45 04:45 05:35 WBC RBC Hgb Hct MCHC RDW MCV MCH Lymph % (Auto) [place] % (Auto) [place] # Eos # Lymph # (Auto) [place] # (Auto) Eos # (Auto) Seg Neutrophils % Seg Neuts % (Manual) Baso # (Auto) Lymphocytes % (Manual) Monocytes % (Manual) Eosinophils % (Manual) Basophils % (Manual) Seg Neutrophils # Seg Neutrophils # Man Lymphocytes # (Manual) Monocytes # (Manual) Eosinophils # (Manual) Nucleated RBC % Basophils # (Manual) PT INR APTT Heparin Anti-Xa Level 0.17 L ABG pH POC ABG pO2 ABG pO2 ABG HCO3 ABG O2 Saturation ABG Base Excess POC ABG pCO2 ABG Hemoglobin ABG Oxyhemoglobin ABG Chloride ABG Glucose Oxyhemoglobin Sodium Potassium Chloride Carbon Dioxide BUN Creatinine Glucose POC Glucose 120 H Lactic Acid Calcium Phosphorus Magnesium AST ALT Lactate Dehydrogenase 228 H Total Bilirubin Direct Bilirubin CK-MB (CK-2) C-Reactive Protein NT-Pro-B Natriuret Pep Total Protein Albumin Arterial Blood Glucose Urine WBC (Auto) Urine Creatinine 12/19/19 12/19/19 12/19/19 09:20 11:32 11:32 WBC 14.6 H RBC 3.08 L Hgb 9.0 L Hct 26.8 L MCHC RDW 15.9 H MCV MCH Lymph % (Auto) [place] % (Auto) [place] # Eos # Lymph # (Auto) [place] # (Auto) Eos # (Auto) Seg Neutrophils % Seg Neuts % (Manual) 82.0 H Baso # (Auto) Lymphocytes % (Manual) 10.0 L Monocytes % (Manual) Eosinophils % (Manual) Basophils % (Manual) Seg Neutrophils # Seg Neutrophils # Man 12.0 H Lymphocytes # (Manual) Monocytes # (Manual) 0.9 H Eosinophils # (Manual) Nucleated RBC % 1.0 H Basophils # (Manual) PT INR APTT Heparin Anti-Xa Level ABG pH 7.451 H POC ABG pO2 ABG pO2 62.6 L ABG HCO3 33.2 H ABG O2 Saturation 93.8 L ABG Base Excess 8.3 H POC ABG pCO2 ABG Hemoglobin 8.3 L ABG Oxyhemoglobin ABG Chloride ABG Glucose Oxyhemoglobin 91.9 L Sodium Potassium Chloride 95.0 L Carbon Dioxide 33 H BUN 22 H Creatinine 0.6 L Glucose 150 H POC Glucose Lactic Acid Calcium Phosphorus Magnesium AST ALT Lactate Dehydrogenase Total Bilirubin Direct Bilirubin CK-MB (CK-2) C-Reactive Protein NT-Pro-B Natriuret Pep Total Protein 6.2 L Albumin 2.4 L Arterial Blood Glucose Urine WBC (Auto) Urine Creatinine 12/19/19 12/19/19 12/20/19 11:56 18:17 00:09 WBC RBC Hgb Hct MCHC RDW MCV MCH Lymph % (Auto) [place] % (Auto) [place] # Eos # Lymph # (Auto) [place] # (Auto) Eos # (Auto) Seg Neutrophils % Seg Neuts % (Manual) Baso # (Auto) Lymphocytes % (Manual) Monocytes % (Manual) Eosinophils % (Manual) Basophils % (Manual) Seg Neutrophils # Seg Neutrophils # Man Lymphocytes # (Manual) Monocytes # (Manual) Eosinophils # (Manual) Nucleated RBC % Basophils # (Manual) PT INR APTT Heparin Anti-Xa Level ABG pH POC ABG pO2 ABG pO2 ABG HCO3 ABG O2 Saturation ABG Base Excess POC ABG pCO2 ABG Hemoglobin ABG Oxyhemoglobin ABG Chloride ABG Glucose Oxyhemoglobin Sodium Potassium Chloride Carbon Dioxide BUN Creatinine Glucose POC Glucose 156 H 156 H 155 H Lactic Acid Calcium Phosphorus Magnesium AST ALT Lactate Dehydrogenase Total Bilirubin Direct Bilirubin CK-MB (CK-2) C-Reactive Protein NT-Pro-B Natriuret Pep Total Protein Albumin Arterial Blood Glucose Urine WBC (Auto) Urine Creatinine 12/20/19 12/20/19 12/20/19 05:26 06:02 18:17 WBC RBC Hgb Hct MCHC RDW MCV MCH Lymph % (Auto) [place] % (Auto) [place] # Eos # Lymph # (Auto) [place] # (Auto) Eos # (Auto) Seg Neutrophils % Seg Neuts % (Manual) Baso # (Auto) Lymphocytes % (Manual) Monocytes % (Manual) Eosinophils % (Manual) Basophils % (Manual) Seg Neutrophils # Seg Neutrophils # Man Lymphocytes # (Manual) Monocytes # (Manual) Eosinophils # (Manual) Nucleated RBC % Basophils # (Manual) PT INR APTT Heparin Anti-Xa Level 0.19 L ABG pH POC ABG pO2 ABG pO2 ABG HCO3 ABG O2 Saturation ABG Base Excess POC ABG pCO2 ABG Hemoglobin ABG Oxyhemoglobin ABG Chloride ABG Glucose Oxyhemoglobin Sodium Potassium Chloride Carbon Dioxide BUN Creatinine Glucose POC Glucose 137 H 128 H Lactic Acid Calcium Phosphorus Magnesium AST ALT Lactate Dehydrogenase Total Bilirubin Direct Bilirubin CK-MB (CK-2) C-Reactive Protein NT-Pro-B Natriuret Pep Total Protein Albumin Arterial Blood Glucose Urine WBC (Auto) Urine Creatinine 12/20/19 12/21/19 12/21/19 23:34 05:31 05:31 WBC 12.7 H RBC 3.09 L Hgb 8.9 L Hct 27.4 L MCHC RDW 15.8 H MCV MCH Lymph % (Auto) 12.1 L [place] % (Auto) 7.8 H [place] # Eos # Lymph # (Auto) [place] # (Auto) 1.0 H Eos # (Auto) Seg Neutrophils % 77.1 H Seg Neuts % (Manual) Baso # (Auto) Lymphocytes % (Manual) Monocytes % (Manual) Eosinophils % (Manual) Basophils % (Manual) Seg Neutrophils # 9.8 H Seg Neutrophils # Man Lymphocytes # (Manual) Monocytes # (Manual) Eosinophils # (Manual) Nucleated RBC % Basophils # (Manual) PT INR APTT Heparin Anti-Xa Level ABG pH POC ABG pO2 ABG pO2 ABG HCO3 ABG O2 Saturation ABG Base Excess POC ABG pCO2 ABG Hemoglobin ABG Oxyhemoglobin ABG Chloride ABG Glucose Oxyhemoglobin Sodium Potassium Chloride 96.9 L Carbon Dioxide 37 H BUN 27 H Creatinine 0.7 L Glucose 140 H POC Glucose 145 H Lactic Acid Calcium Phosphorus Magnesium AST ALT Lactate Dehydrogenase Total Bilirubin Direct Bilirubin CK-MB (CK-2) C-Reactive Protein NT-Pro-B Natriuret Pep Total Protein Albumin Arterial Blood Glucose Urine WBC (Auto) Urine Creatinine 12/21/19 12/21/19 12/21/19 05:38 10:13 11:51 WBC RBC Hgb Hct MCHC RDW MCV MCH Lymph % (Auto) [place] % (Auto) [place] # Eos # Lymph # (Auto) [place] # (Auto) Eos # (Auto) Seg Neutrophils % Seg Neuts % (Manual) Baso # (Auto) Lymphocytes % (Manual) Monocytes % (Manual) Eosinophils % (Manual) Basophils % (Manual) Seg Neutrophils # Seg Neutrophils # Man Lymphocytes # (Manual) Monocytes # (Manual) Eosinophils # (Manual) Nucleated RBC % Basophils # (Manual) PT INR APTT 23.9 L Heparin Anti-Xa Level < 0.10 L ABG pH POC ABG pO2 ABG pO2 ABG HCO3 ABG O2 Saturation ABG Base Excess POC ABG pCO2 ABG Hemoglobin ABG Oxyhemoglobin ABG Chloride ABG Glucose Oxyhemoglobin Sodium Potassium Chloride Carbon Dioxide BUN Creatinine Glucose POC Glucose 151 H 145 H Lactic Acid Calcium Phosphorus Magnesium AST ALT Lactate Dehydrogenase Total Bilirubin Direct Bilirubin CK-MB (CK-2) C-Reactive Protein NT-Pro-B Natriuret Pep Total Protein Albumin Arterial Blood Glucose Urine WBC (Auto) Urine Creatinine 12/21/19 12/22/19 12/22/19 17:16 00:01 01:33 WBC RBC Hgb Hct MCHC RDW MCV MCH Lymph % (Auto) [place] % (Auto) [place] # Eos # Lymph # (Auto) [place] # (Auto) Eos # (Auto) Seg Neutrophils % Seg Neuts % (Manual) Baso # (Auto) Lymphocytes % (Manual) Monocytes % (Manual) Eosinophils % (Manual) Basophils % (Manual) Seg Neutrophils # Seg Neutrophils # Man Lymphocytes # (Manual) Monocytes # (Manual) Eosinophils # (Manual) Nucleated RBC % Basophils # (Manual) PT INR APTT Heparin Anti-Xa Level 0.10 L ABG pH POC ABG pO2 ABG pO2 ABG HCO3 ABG O2 Saturation ABG Base Excess POC ABG pCO2 ABG Hemoglobin ABG Oxyhemoglobin ABG Chloride ABG Glucose Oxyhemoglobin Sodium Potassium Chloride Carbon Dioxide BUN Creatinine Glucose POC Glucose 167 H 179 H Lactic Acid Calcium Phosphorus Magnesium AST ALT Lactate Dehydrogenase Total Bilirubin Direct Bilirubin CK-MB (CK-2) C-Reactive Protein NT-Pro-B Natriuret Pep Total Protein Albumin Arterial Blood Glucose Urine WBC (Auto) Urine Creatinine 12/22/19 12/22/19 12/22/19 03:22 05:10 05:10 WBC 13.8 H RBC 3.20 L Hgb 8.9 L Hct 28.1 L MCHC RDW 15.9 H MCV MCH Lymph % (Auto) [place] % (Auto) [place] # Eos # Lymph # (Auto) [place] # (Auto) Eos # (Auto) Seg Neutrophils % Seg Neuts % (Manual) Baso # (Auto) Lymphocytes % (Manual) Monocytes % (Manual) Eosinophils % (Manual) Basophils % (Manual) Seg Neutrophils # Seg Neutrophils # Man Lymphocytes # (Manual) Monocytes # (Manual) Eosinophils # (Manual) Nucleated RBC % Basophils # (Manual) PT INR APTT Heparin Anti-Xa Level ABG pH POC ABG pO2 52.3 L ABG pO2 ABG HCO3 ABG O2 Saturation ABG Base Excess POC ABG pCO2 52.9 H ABG Hemoglobin 10.7 L ABG Oxyhemoglobin 84 L ABG Chloride ABG Glucose Oxyhemoglobin Sodium Potassium Chloride 96.6 L Carbon Dioxide BUN 25 H Creatinine 0.7 L Glucose 129 H POC Glucose Lactic Acid Calcium Phosphorus Magnesium AST ALT Lactate Dehydrogenase Total Bilirubin Direct Bilirubin CK-MB (CK-2) C-Reactive Protein NT-Pro-B Natriuret Pep Total Protein Albumin Arterial Blood Glucose Urine WBC (Auto) Urine Creatinine 12/22/19 12/22/19 12/22/19 05:18 12:32 12:43 WBC RBC Hgb Hct MCHC RDW MCV MCH Lymph % (Auto) [place] % (Auto) [place] # Eos # Lymph # (Auto) [place] # (Auto) Eos # (Auto) Seg Neutrophils % Seg Neuts % (Manual) Baso # (Auto) Lymphocytes % (Manual) Monocytes % (Manual) Eosinophils % (Manual) Basophils % (Manual) Seg Neutrophils # Seg Neutrophils # Man Lymphocytes # (Manual) Monocytes # (Manual) Eosinophils # (Manual) Nucleated RBC % Basophils # (Manual) PT INR APTT Heparin Anti-Xa Level 0.18 L ABG pH POC ABG pO2 ABG pO2 ABG HCO3 ABG O2 Saturation ABG Base Excess POC ABG pCO2 ABG Hemoglobin ABG Oxyhemoglobin ABG Chloride ABG Glucose Oxyhemoglobin Sodium Potassium Chloride Carbon Dioxide BUN Creatinine Glucose POC Glucose 131 H 208 H Lactic Acid Calcium Phosphorus Magnesium AST ALT Lactate Dehydrogenase Total Bilirubin Direct Bilirubin CK-MB (CK-2) C-Reactive Protein NT-Pro-B Natriuret Pep Total Protein Albumin Arterial Blood Glucose Urine WBC (Auto) Urine Creatinine 12/22/19 12/22/19 12/23/19 17:44 23:20 03:51 WBC 15.2 H RBC 3.43 L Hgb 9.6 L Hct 30.3 L MCHC RDW 15.9 H MCV MCH Lymph % (Auto) [place] % (Auto) [place] # Eos # Lymph # (Auto) [place] # (Auto) Eos # (Auto) Seg Neutrophils % Seg Neuts % (Manual) Baso # (Auto) Lymphocytes % (Manual) Monocytes % (Manual) Eosinophils % (Manual) Basophils % (Manual) Seg Neutrophils # Seg Neutrophils # Man Lymphocytes # (Manual) Monocytes # (Manual) Eosinophils # (Manual) Nucleated RBC % Basophils # (Manual) PT INR APTT Heparin Anti-Xa Level ABG pH POC ABG pO2 ABG pO2 ABG HCO3 ABG O2 Saturation ABG Base Excess POC ABG pCO2 ABG Hemoglobin ABG Oxyhemoglobin ABG Chloride ABG Glucose Oxyhemoglobin Sodium Potassium Chloride Carbon Dioxide BUN Creatinine Glucose POC Glucose 209 H 119 H Lactic Acid Calcium Phosphorus Magnesium AST ALT Lactate Dehydrogenase Total Bilirubin Direct Bilirubin CK-MB (CK-2) C-Reactive Protein NT-Pro-B Natriuret Pep Total Protein Albumin Arterial Blood Glucose Urine WBC (Auto) Urine Creatinine 12/23/19 12/23/19 12/23/19 03:51 05:31 12:09 WBC RBC Hgb Hct MCHC RDW MCV MCH Lymph % (Auto) [place] % (Auto) [place] # Eos # Lymph # (Auto) [place] # (Auto) Eos # (Auto) Seg Neutrophils % Seg Neuts % (Manual) Baso # (Auto) Lymphocytes % (Manual) Monocytes % (Manual) Eosinophils % (Manual) Basophils % (Manual) Seg Neutrophils # Seg Neutrophils # Man Lymphocytes # (Manual) Monocytes # (Manual) Eosinophils # (Manual) Nucleated RBC % Basophils # (Manual) PT INR APTT Heparin Anti-Xa Level ABG pH POC ABG pO2 ABG pO2 ABG HCO3 ABG O2 Saturation ABG Base Excess POC ABG pCO2 ABG Hemoglobin ABG Oxyhemoglobin ABG Chloride ABG Glucose Oxyhemoglobin Sodium Potassium Chloride 97.2 L Carbon Dioxide 31 H BUN 23 H Creatinine 0.6 L Glucose 153 H POC Glucose 149 H 144 H Lactic Acid Calcium Phosphorus Magnesium AST ALT Lactate Dehydrogenase Total Bilirubin Direct Bilirubin CK-MB (CK-2) C-Reactive Protein NT-Pro-B Natriuret Pep Total Protein Albumin Arterial Blood Glucose Urine WBC (Auto) Urine Creatinine 12/23/19 12/23/19 12/23/19 15:30 17:49 23:31 WBC RBC Hgb Hct MCHC RDW MCV MCH Lymph % (Auto) [place] % (Auto) [place] # Eos # Lymph # (Auto) [place] # (Auto) Eos # (Auto) Seg Neutrophils % Seg Neuts % (Manual) Baso # (Auto) Lymphocytes % (Manual) Monocytes % (Manual) Eosinophils % (Manual) Basophils % (Manual) Seg Neutrophils # Seg Neutrophils # Man Lymphocytes # (Manual) Monocytes # (Manual) Eosinophils # (Manual) Nucleated RBC % Basophils # (Manual) PT INR APTT Heparin Anti-Xa Level 0.21 L ABG pH POC ABG pO2 ABG pO2 ABG HCO3 ABG O2 Saturation ABG Base Excess POC ABG pCO2 ABG Hemoglobin ABG Oxyhemoglobin ABG Chloride ABG Glucose Oxyhemoglobin Sodium Potassium Chloride Carbon Dioxide BUN Creatinine Glucose POC Glucose 192 H 151 H Lactic Acid Calcium Phosphorus Magnesium AST ALT Lactate Dehydrogenase Total Bilirubin Direct Bilirubin CK-MB (CK-2) C-Reactive Protein NT-Pro-B Natriuret Pep Total Protein Albumin Arterial Blood Glucose Urine WBC (Auto) Urine Creatinine 12/24/19 12/24/19 12/24/19 05:34 12:13 16:50 WBC RBC Hgb Hct MCHC RDW MCV MCH Lymph % (Auto) [place] % (Auto) [place] # Eos # Lymph # (Auto) [place] # (Auto) Eos # (Auto) Seg Neutrophils % Seg Neuts % (Manual) Baso # (Auto) Lymphocytes % (Manual) Monocytes % (Manual) Eosinophils % (Manual) Basophils % (Manual) Seg Neutrophils # Seg Neutrophils # Man Lymphocytes # (Manual) Monocytes # (Manual) Eosinophils # (Manual) Nucleated RBC % Basophils # (Manual) PT INR APTT Heparin Anti-Xa Level 0.16 L ABG pH POC ABG pO2 ABG pO2 ABG HCO3 ABG O2 Saturation ABG Base Excess POC ABG pCO2 ABG Hemoglobin ABG Oxyhemoglobin ABG Chloride ABG Glucose Oxyhemoglobin Sodium Potassium Chloride Carbon Dioxide BUN Creatinine Glucose POC Glucose 145 H 124 H Lactic Acid Calcium Phosphorus Magnesium AST ALT Lactate Dehydrogenase Total Bilirubin Direct Bilirubin CK-MB (CK-2) C-Reactive Protein NT-Pro-B Natriuret Pep Total Protein Albumin Arterial Blood Glucose Urine WBC (Auto) Urine Creatinine 12/24/19 12/25/19 12/25/19 17:53 00:14 04:18 WBC 12.9 H RBC 3.30 L Hgb 9.1 L Hct 28.8 L MCHC RDW 16.4 H MCV MCH Lymph % (Auto) [place] % (Auto) 7.8 H [place] # Eos # Lymph # (Auto) [place] # (Auto) 1.0 H Eos # (Auto) Seg Neutrophils % 75.5 H Seg Neuts % (Manual) Baso # (Auto) Lymphocytes % (Manual) Monocytes % (Manual) Eosinophils % (Manual) Basophils % (Manual) Seg Neutrophils # 9.7 H Seg Neutrophils # Man Lymphocytes # (Manual) Monocytes # (Manual) Eosinophils # (Manual) Nucleated RBC % Basophils # (Manual) PT INR APTT Heparin Anti-Xa Level ABG pH POC ABG pO2 ABG pO2 ABG HCO3 ABG O2 Saturation ABG Base Excess POC ABG pCO2 ABG Hemoglobin ABG Oxyhemoglobin ABG Chloride ABG Glucose Oxyhemoglobin Sodium Potassium Chloride Carbon Dioxide BUN Creatinine Glucose POC Glucose 164 H 148 H Lactic Acid Calcium Phosphorus Magnesium AST ALT Lactate Dehydrogenase Total Bilirubin Direct Bilirubin CK-MB (CK-2) C-Reactive Protein NT-Pro-B Natriuret Pep Total Protein Albumin Arterial Blood Glucose Urine WBC (Auto) Urine Creatinine 12/25/19 12/25/19 12/25/19 04:18 05:38 11:44 WBC RBC Hgb Hct MCHC RDW MCV MCH Lymph % (Auto) Crawford % (Auto) Crawford # Eos # Lymph # (Auto) Crawford # (Auto) Eos # (Auto) Seg Neutrophils % Seg Neuts % (Manual) Baso # (Auto) Lymphocytes % (Manual) Monocytes % (Manual) Eosinophils % (Manual) Basophils % (Manual) Seg Neutrophils # Seg Neutrophils # Man Lymphocytes # (Manual) Monocytes # (Manual) Eosinophils # (Manual) Nucleated RBC % Basophils # (Manual) PT INR APTT Heparin Anti-Xa Level ABG pH POC ABG pO2 ABG pO2 ABG HCO3 ABG O2 Saturation ABG Base Excess POC ABG pCO2 ABG Hemoglobin ABG Oxyhemoglobin ABG Chloride ABG Glucose Oxyhemoglobin Sodium Potassium Chloride Carbon Dioxide 33 H BUN 27 H Creatinine 0.6 L Glucose 132 H POC Glucose 152 H 166 H Lactic Acid Calcium Phosphorus Magnesium AST ALT Lactate Dehydrogenase Total Bilirubin Direct Bilirubin CK-MB (CK-2) C-Reactive Protein NT-Pro-B Natriuret Pep Total Protein Albumin Arterial Blood Glucose Urine WBC (Auto) Urine Creatinine 12/25/19 12/26/19 12/26/19 18:29 00:17 00:18 WBC RBC Hgb Hct MCHC RDW MCV MCH Lymph % (Auto) [place] % (Auto) Crawford # Eos # Lymph # (Auto) [place] # (Auto) Eos # (Auto) Seg Neutrophils % Seg Neuts % (Manual) Baso # (Auto) Lymphocytes % (Manual) Monocytes % (Manual) Eosinophils % (Manual) Basophils % (Manual) Seg Neutrophils # Seg Neutrophils # Man Lymphocytes # (Manual) Monocytes # (Manual) Eosinophils # (Manual) Nucleated RBC % Basophils # (Manual) PT INR APTT Heparin Anti-Xa Level ABG pH POC ABG pO2 ABG pO2 ABG HCO3 ABG O2 Saturation ABG Base Excess POC ABG pCO2 ABG Hemoglobin ABG Oxyhemoglobin ABG Chloride ABG Glucose Oxyhemoglobin Sodium Potassium Chloride 97.8 L Carbon Dioxide BUN 25 H Creatinine 0.6 L Glucose 140 H POC Glucose 194 H 151 H Lactic Acid Calcium Phosphorus Magnesium AST ALT Lactate Dehydrogenase Total Bilirubin Direct Bilirubin CK-MB (CK-2) C-Reactive Protein NT-Pro-B Natriuret Pep Total Protein Albumin Arterial Blood Glucose Urine WBC (Auto) Urine Creatinine 10/06/1112/26/19 12/26/19 05:36 11:41 17:50 WBC RBC Hgb Hct MCHC RDW MCV MCH Lymph % (Auto) [place] % (Auto) Crawford # Eos # Lymph # (Auto) [place] # (Auto) Eos # (Auto) Seg Neutrophils % Seg Neuts % (Manual) Baso # (Auto) Lymphocytes % (Manual) Monocytes % (Manual) Eosinophils % (Manual) Basophils % (Manual) Seg Neutrophils # Seg Neutrophils # Man Lymphocytes # (Manual) Monocytes # (Manual) Eosinophils # (Manual) Nucleated RBC % Basophils # (Manual) PT INR APTT Heparin Anti-Xa Level ABG pH POC ABG pO2 ABG pO2 ABG HCO3 ABG O2 Saturation ABG Base Excess POC ABG pCO2 ABG Hemoglobin ABG Oxyhemoglobin ABG Chloride ABG Glucose Oxyhemoglobin Sodium Potassium Chloride Carbon Dioxide BUN Creatinine Glucose POC Glucose 156 H 148 H 139 H Lactic Acid Calcium Phosphorus Magnesium AST ALT Lactate Dehydrogenase Total Bilirubin Direct Bilirubin CK-MB (CK-2) C-Reactive Protein NT-Pro-B Natriuret Pep Total Protein Albumin Arterial Blood Glucose Urine WBC (Auto) Urine Creatinine 12/26/19 12/27/19 12/27/19 23:19 05:34 12:02 WBC RBC Hgb Hct MCHC RDW MCV MCH Lymph % (Auto) [place] % (Auto) [place] # Eos # Lymph # (Auto) [place] # (Auto) Eos # (Auto) Seg Neutrophils % Seg Neuts % (Manual) Baso # (Auto) Lymphocytes % (Manual) Monocytes % (Manual) Eosinophils % (Manual) Basophils % (Manual) Seg Neutrophils # Seg Neutrophils # Man Lymphocytes # (Manual) Monocytes # (Manual) Eosinophils # (Manual) Nucleated RBC % Basophils # (Manual) PT INR APTT Heparin Anti-Xa Level ABG pH POC ABG pO2 ABG pO2 ABG HCO3 ABG O2 Saturation ABG Base Excess POC ABG pCO2 ABG Hemoglobin ABG Oxyhemoglobin ABG Chloride ABG Glucose Oxyhemoglobin Sodium Potassium Chloride Carbon Dioxide BUN Creatinine Glucose POC Glucose 161 H 145 H 157 H Lactic Acid Calcium Phosphorus Magnesium AST ALT Lactate Dehydrogenase Total Bilirubin Direct Bilirubin CK-MB (CK-2) C-Reactive Protein NT-Pro-B Natriuret Pep Total Protein Albumin Arterial Blood Glucose Urine WBC (Auto) Urine Creatinine 10/04/20 10/04/20 10/04/20 17:35 20:11 23:00 WBC RBC Hgb Hct MCHC RDW MCV MCH Lymph % (Auto) [place] % (Auto) [place] # Eos # Lymph # (Auto) [place] # (Auto) Eos # (Auto) Seg Neutrophils % Seg Neuts % (Manual) Baso # (Auto) Lymphocytes % (Manual) Monocytes % (Manual) Eosinophils % (Manual) Basophils % (Manual) Seg Neutrophils # Seg Neutrophils # Man Lymphocytes # (Manual) Monocytes # (Manual) Eosinophils # (Manual) Nucleated RBC % Basophils # (Manual) PT INR APTT Heparin Anti-Xa Level 0.19 L ABG pH POC ABG pO2 ABG pO2 ABG HCO3 ABG O2 Saturation ABG Base Excess POC ABG pCO2 ABG Hemoglobin ABG Oxyhemoglobin ABG Chloride ABG Glucose Oxyhemoglobin Sodium Potassium Chloride Carbon Dioxide BUN Creatinine Glucose POC Glucose 158 H 155 H Lactic Acid Calcium Phosphorus Magnesium AST ALT Lactate Dehydrogenase Total Bilirubin Direct Bilirubin CK-MB (CK-2) C-Reactive Protein NT-Pro-B Natriuret Pep Total Protein Albumin Arterial Blood Glucose Urine WBC (Auto) Urine Creatinine 12/27/19 12/28/19 12/28/19 23:45 02:41 02:41 WBC 13.0 H RBC 3.48 L Hgb 9.5 L Hct 30.6 L MCHC 31 L RDW 16.6 H MCV MCH 27 L Lymph % (Auto) 13.0 L [place] % (Auto) 8.0 H [place] # Eos # Lymph # (Auto) [place] # (Auto) 1.0 H Eos # (Auto) Seg Neutrophils % 76.3 H Seg Neuts % (Manual) Baso # (Auto) Lymphocytes % (Manual) Monocytes % (Manual) Eosinophils % (Manual) Basophils % (Manual) Seg Neutrophils # 9.9 H Seg Neutrophils # Man Lymphocytes # (Manual) Monocytes # (Manual) Eosinophils # (Manual) Nucleated RBC % Basophils # (Manual) PT INR APTT Heparin Anti-Xa Level ABG pH POC ABG pO2 ABG pO2 ABG HCO3 ABG O2 Saturation ABG Base Excess POC ABG pCO2 ABG Hemoglobin ABG Oxyhemoglobin ABG Chloride ABG Glucose Oxyhemoglobin Sodium Potassium Chloride Carbon Dioxide BUN 22 H Creatinine 0.6 L Glucose 101 H POC Glucose 130 H Lactic Acid Calcium Phosphorus Magnesium AST ALT Lactate Dehydrogenase Total Bilirubin Direct Bilirubin CK-MB (CK-2) C-Reactive Protein NT-Pro-B Natriuret Pep Total Protein Albumin Arterial Blood Glucose Urine WBC (Auto) Urine Creatinine 12/28/19 12/28/19 12/28/19 06:00 12:34 18:13 WBC RBC Hgb Hct MCHC RDW MCV MCH Lymph % (Auto) [place] % (Auto) [place] # Eos # Lymph # (Auto) [place] # (Auto) Eos # (Auto) Seg Neutrophils % Seg Neuts % (Manual) Baso # (Auto) Lymphocytes % (Manual) Monocytes % (Manual) Eosinophils % (Manual) Basophils % (Manual) Seg Neutrophils # Seg Neutrophils # Man Lymphocytes # (Manual) Monocytes # (Manual) Eosinophils # (Manual) Nucleated RBC % Basophils # (Manual) PT INR APTT Heparin Anti-Xa Level ABG pH POC ABG pO2 ABG pO2 ABG HCO3 ABG O2 Saturation ABG Base Excess POC ABG pCO2 ABG Hemoglobin ABG Oxyhemoglobin ABG Chloride ABG Glucose Oxyhemoglobin Sodium Potassium Chloride Carbon Dioxide BUN Creatinine Glucose POC Glucose 150 H 161 H 128 H Lactic Acid Calcium Phosphorus Magnesium AST ALT Lactate Dehydrogenase Total Bilirubin Direct Bilirubin CK-MB (CK-2) C-Reactive Protein NT-Pro-B Natriuret Pep Total Protein Albumin Arterial Blood Glucose Urine WBC (Auto) Urine Creatinine 12/28/19 12/29/19 12/29/19 23:36 05:21 11:40 WBC RBC Hgb Hct MCHC RDW MCV MCH Lymph % (Auto) [place] % (Auto) [place] # Eos # Lymph # (Auto) [place] # (Auto) Eos # (Auto) Seg Neutrophils % Seg Neuts % (Manual) Baso # (Auto) Lymphocytes % (Manual) Monocytes % (Manual) Eosinophils % (Manual) Basophils % (Manual) Seg Neutrophils # Seg Neutrophils # Man Lymphocytes # (Manual) Monocytes # (Manual) Eosinophils # (Manual) Nucleated RBC % Basophils # (Manual) PT INR APTT Heparin Anti-Xa Level ABG pH POC ABG pO2 ABG pO2 ABG HCO3 ABG O2 Saturation ABG Base Excess POC ABG pCO2 ABG Hemoglobin ABG Oxyhemoglobin ABG Chloride ABG Glucose Oxyhemoglobin Sodium Potassium Chloride Carbon Dioxide BUN Creatinine Glucose POC Glucose 137 H 136 H 166 H Lactic Acid Calcium Phosphorus Magnesium AST ALT Lactate Dehydrogenase Total Bilirubin Direct Bilirubin CK-MB (CK-2) C-Reactive Protein NT-Pro-B Natriuret Pep Total Protein Albumin Arterial Blood Glucose Urine WBC (Auto) Urine Creatinine 12/29/19 12/29/19 12/29/19 17:23 19:21 23:38 WBC RBC Hgb Hct MCHC RDW MCV MCH Lymph % (Auto) [place] % (Auto) [place] # Eos # Lymph # (Auto) [place] # (Auto) Eos # (Auto) Seg Neutrophils % Seg Neuts % (Manual) Baso # (Auto) Lymphocytes % (Manual) Monocytes % (Manual) Eosinophils % (Manual) Basophils % (Manual) Seg Neutrophils # Seg Neutrophils # Man Lymphocytes # (Manual) Monocytes # (Manual) Eosinophils # (Manual) Nucleated RBC % Basophils # (Manual) PT INR APTT Heparin Anti-Xa Level 0.20 L ABG pH POC ABG pO2 ABG pO2 ABG HCO3 ABG O2 Saturation ABG Base Excess POC ABG pCO2 ABG Hemoglobin ABG Oxyhemoglobin ABG Chloride ABG Glucose Oxyhemoglobin Sodium Potassium Chloride Carbon Dioxide BUN Creatinine Glucose POC Glucose 144 H 141 H Lactic Acid Calcium Phosphorus Magnesium AST ALT Lactate Dehydrogenase Total Bilirubin Direct Bilirubin CK-MB (CK-2) C-Reactive Protein NT-Pro-B Natriuret Pep Total Protein Albumin Arterial Blood Glucose Urine WBC (Auto) Urine Creatinine 12/30/19 12/30/19 12/30/19 03:58 03:58 04:59 WBC RBC 3.54 L Hgb 9.8 L Hct 30.7 L MCHC RDW 16.8 H MCV MCH Lymph % (Auto) [place] % (Auto) [place] # Eos # Lymph # (Auto) [place] # (Auto) Eos # (Auto) Seg Neutrophils % Seg Neuts % (Manual) Baso # (Auto) Lymphocytes % (Manual) Monocytes % (Manual) Eosinophils % (Manual) Basophils % (Manual) Seg Neutrophils # Seg Neutrophils # Man Lymphocytes # (Manual) Monocytes # (Manual) Eosinophils # (Manual) Nucleated RBC % Basophils # (Manual) PT INR APTT Heparin Anti-Xa Level ABG pH POC ABG pO2 ABG pO2 ABG HCO3 29.8 H ABG O2 Saturation ABG Base Excess 4.8 H POC ABG pCO2 ABG Hemoglobin 11.2 L ABG Oxyhemoglobin ABG Chloride ABG Glucose Oxyhemoglobin 93.8 L Sodium Potassium Chloride 97.8 L Carbon Dioxide BUN 26 H Creatinine Glucose 168 H POC Glucose Lactic Acid Calcium Phosphorus Magnesium AST ALT Lactate Dehydrogenase Total Bilirubin Direct Bilirubin CK-MB (CK-2) C-Reactive Protein NT-Pro-B Natriuret Pep Total Protein Albumin Arterial Blood Glucose Urine WBC (Auto) Urine Creatinine 12/30/19 12/30/19 12/30/19 05:45 11:34 17:28 WBC RBC Hgb Hct MCHC RDW MCV MCH Lymph % (Auto) [place] % (Auto) [place] # Eos # Lymph # (Auto) [place] # (Auto) Eos # (Auto) Seg Neutrophils % Seg Neuts % (Manual) Baso # (Auto) Lymphocytes % (Manual) Monocytes % (Manual) Eosinophils % (Manual) Basophils % (Manual) Seg Neutrophils # Seg Neutrophils # Man Lymphocytes # (Manual) Monocytes # (Manual) Eosinophils # (Manual) Nucleated RBC % Basophils # (Manual) PT INR APTT Heparin Anti-Xa Level ABG pH POC ABG pO2 ABG pO2 ABG HCO3 ABG O2 Saturation ABG Base Excess POC ABG pCO2 ABG Hemoglobin ABG Oxyhemoglobin ABG Chloride ABG Glucose Oxyhemoglobin Sodium Potassium Chloride Carbon Dioxide BUN Creatinine Glucose POC Glucose 163 H 180 H 150 H Lactic Acid Calcium Phosphorus Magnesium AST ALT Lactate Dehydrogenase Total Bilirubin Direct Bilirubin CK-MB (CK-2) C-Reactive Protein NT-Pro-B Natriuret Pep Total Protein Albumin Arterial Blood Glucose Urine WBC (Auto) Urine Creatinine 12/30/19 12/31/19 12/31/19 23:43 04:55 05:07 WBC RBC Hgb Hct MCHC RDW MCV MCH Lymph % (Auto) [place] % (Auto) [place] # Eos # Lymph # (Auto) [place] # (Auto) Eos # (Auto) Seg Neutrophils % Seg Neuts % (Manual) Baso # (Auto) Lymphocytes % (Manual) Monocytes % (Manual) Eosinophils % (Manual) Basophils % (Manual) Seg Neutrophils # Seg Neutrophils # Man Lymphocytes # (Manual) Monocytes # (Manual) Eosinophils # (Manual) Nucleated RBC % Basophils # (Manual) PT INR APTT Heparin Anti-Xa Level ABG pH POC ABG pO2 ABG pO2 ABG HCO3 ABG O2 Saturation ABG Base Excess POC ABG pCO2 ABG Hemoglobin ABG Oxyhemoglobin ABG Chloride ABG Glucose Oxyhemoglobin Sodium Potassium 5.6 H D Chloride Carbon Dioxide BUN 33 H Creatinine Glucose 131 H POC Glucose 142 H 134 H Lactic Acid Calcium Phosphorus Magnesium AST ALT Lactate Dehydrogenase Total Bilirubin Direct Bilirubin CK-MB (CK-2) C-Reactive Protein NT-Pro-B Natriuret Pep Total Protein Albumin Arterial Blood Glucose Urine WBC (Auto) Urine Creatinine 12/31/19 12/31/19 12/31/19 11:30 17:19 17:36 WBC RBC Hgb Hct MCHC RDW MCV MCH Lymph % (Auto) [place] % (Auto) [place] # Eos # Lymph # (Auto) [place] # (Auto) Eos # (Auto) Seg Neutrophils % Seg Neuts % (Manual) Baso # (Auto) Lymphocytes % (Manual) Monocytes % (Manual) Eosinophils % (Manual) Basophils % (Manual) Seg Neutrophils # Seg Neutrophils # Man Lymphocytes # (Manual) Monocytes # (Manual) Eosinophils # (Manual) Nucleated RBC % Basophils # (Manual) PT INR APTT Heparin Anti-Xa Level ABG pH POC ABG pO2 ABG pO2 ABG HCO3 ABG O2 Saturation ABG Base Excess POC ABG pCO2 ABG Hemoglobin ABG Oxyhemoglobin ABG Chloride ABG Glucose Oxyhemoglobin Sodium Potassium Chloride Carbon Dioxide BUN 35 H Creatinine Glucose 156 H POC Glucose 158 H 181 H Lactic Acid Calcium Phosphorus Magnesium AST ALT Lactate Dehydrogenase Total Bilirubin Direct Bilirubin CK-MB (CK-2) C-Reactive Protein NT-Pro-B Natriuret Pep Total Protein Albumin Arterial Blood Glucose Urine WBC (Auto) Urine Creatinine 12/31/19 12/31/19 12/31/19 18:16 19:41 21:53 WBC RBC Hgb Hct MCHC RDW MCV MCH Lymph % (Auto) [place] % (Auto) [place] # Eos # Lymph # (Auto) [place] # (Auto) Eos # (Auto) Seg Neutrophils % Seg Neuts % (Manual) Baso # (Auto) Lymphocytes % (Manual) Monocytes % (Manual) Eosinophils % (Manual) Basophils % (Manual) Seg Neutrophils # Seg Neutrophils # Man Lymphocytes # (Manual) Monocytes # (Manual) Eosinophils # (Manual) Nucleated RBC % Basophils # (Manual) PT INR APTT Heparin Anti-Xa Level 0.20 L ABG pH POC ABG pO2 ABG pO2 ABG HCO3 ABG O2 Saturation ABG Base Excess POC ABG pCO2 ABG Hemoglobin ABG Oxyhemoglobin ABG Chloride ABG Glucose Oxyhemoglobin Sodium Potassium Chloride Carbon Dioxide BUN 34 H Creatinine Glucose 169 H POC Glucose 141 H Lactic Acid Calcium Phosphorus Magnesium AST ALT Lactate Dehydrogenase Total Bilirubin Direct Bilirubin CK-MB (CK-2) C-Reactive Protein NT-Pro-B Natriuret Pep Total Protein Albumin Arterial Blood Glucose Urine WBC (Auto) Urine Creatinine 12/31/19 01/01/20 01/01/20 23:51 05:17 10:40 WBC RBC Hgb Hct MCHC RDW MCV MCH Lymph % (Auto) [place] % (Auto) [place] # Eos # Lymph # (Auto) [place] # (Auto) Eos # (Auto) Seg Neutrophils % Seg Neuts % (Manual) Baso # (Auto) Lymphocytes % (Manual) Monocytes % (Manual) Eosinophils % (Manual) Basophils % (Manual) Seg Neutrophils # Seg Neutrophils # Man Lymphocytes # (Manual) Monocytes # (Manual) Eosinophils # (Manual) Nucleated RBC % Basophils # (Manual) PT INR APTT Heparin Anti-Xa Level ABG pH POC ABG pO2 ABG pO2 ABG HCO3 ABG O2 Saturation ABG Base Excess POC ABG pCO2 ABG Hemoglobin ABG Oxyhemoglobin ABG Chloride ABG Glucose Oxyhemoglobin Sodium Potassium Chloride Carbon Dioxide BUN 31 H Creatinine 0.7 L Glucose 137 H POC Glucose 131 H 155 H Lactic Acid Calcium Phosphorus Magnesium AST 73 H ALT 97 H Lactate Dehydrogenase Total Bilirubin Direct Bilirubin CK-MB (CK-2) C-Reactive Protein NT-Pro-B Natriuret Pep 3866 H Total Protein Albumin 2.8 L Arterial Blood Glucose Urine WBC (Auto) Urine Creatinine 01/01/20 01/01/20 01/01/20 12:26 15:33 17:53 WBC 14.3 H RBC 3.35 L Hgb 9.1 L Hct 28.8 L MCHC RDW 17.0 H MCV MCH 27 L Lymph % (Auto) 7.0 L [place] % (Auto) 7.6 H [place] # Eos # Lymph # (Auto) 1.0 L [place] # (Auto) 1.1 H Eos # (Auto) Seg Neutrophils % 83.3 H Seg Neuts % (Manual) Baso # (Auto) Lymphocytes % (Manual) Monocytes % (Manual) Eosinophils % (Manual) Basophils % (Manual) Seg Neutrophils # 12.0 H Seg Neutrophils # Man Lymphocytes # (Manual) Monocytes # (Manual) Eosinophils # (Manual) Nucleated RBC % Basophils # (Manual) PT INR APTT Heparin Anti-Xa Level ABG pH POC ABG pO2 ABG pO2 ABG HCO3 ABG O2 Saturation ABG Base Excess POC ABG pCO2 ABG Hemoglobin ABG Oxyhemoglobin ABG Chloride ABG Glucose Oxyhemoglobin Sodium Potassium Chloride Carbon Dioxide BUN Creatinine Glucose POC Glucose 128 H 128 H Lactic Acid Calcium Phosphorus Magnesium AST ALT Lactate Dehydrogenase Total Bilirubin Direct Bilirubin CK-MB (CK-2) C-Reactive Protein NT-Pro-B Natriuret Pep Total Protein Albumin Arterial Blood Glucose Urine WBC (Auto) Urine Creatinine 01/01/20 01/02/20 01/02/20 23:04 05:39 07:00 WBC RBC Hgb Hct MCHC RDW MCV MCH Lymph % (Auto) [place] % (Auto) [place] # Eos # Lymph # (Auto) [place] # (Auto) Eos # (Auto) Seg Neutrophils % Seg Neuts % (Manual) Baso # (Auto) Lymphocytes % (Manual) Monocytes % (Manual) Eosinophils % (Manual) Basophils % (Manual) Seg Neutrophils # Seg Neutrophils # Man Lymphocytes # (Manual) Monocytes # (Manual) Eosinophils # (Manual) Nucleated RBC % Basophils # (Manual) PT INR APTT Heparin Anti-Xa Level 0.13 L ABG pH POC ABG pO2 ABG pO2 ABG HCO3 ABG O2 Saturation ABG Base Excess POC ABG pCO2 ABG Hemoglobin ABG Oxyhemoglobin ABG Chloride ABG Glucose Oxyhemoglobin Sodium Potassium Chloride Carbon Dioxide BUN Creatinine Glucose POC Glucose 120 H 169 H Lactic Acid Calcium Phosphorus Magnesium AST ALT Lactate Dehydrogenase Total Bilirubin Direct Bilirubin CK-MB (CK-2) C-Reactive Protein NT-Pro-B Natriuret Pep Total Protein Albumin Arterial Blood Glucose Urine WBC (Auto) Urine Creatinine 01/02/20 01/02/20 01/02/20 12:15 14:06 17:58 WBC RBC Hgb Hct MCHC RDW MCV MCH Lymph % (Auto) [place] % (Auto) [place] # Eos # Lymph # (Auto) [place] # (Auto) Eos # (Auto) Seg Neutrophils % Seg Neuts % (Manual) Baso # (Auto) Lymphocytes % (Manual) Monocytes % (Manual) Eosinophils % (Manual) Basophils % (Manual) Seg Neutrophils # Seg Neutrophils # Man Lymphocytes # (Manual) Monocytes # (Manual) Eosinophils # (Manual) Nucleated RBC % Basophils # (Manual) PT INR APTT Heparin Anti-Xa Level < 0.10 L ABG pH POC ABG pO2 ABG pO2 ABG HCO3 ABG O2 Saturation ABG Base Excess POC ABG pCO2 ABG Hemoglobin ABG Oxyhemoglobin ABG Chloride ABG Glucose Oxyhemoglobin Sodium Potassium Chloride Carbon Dioxide BUN Creatinine Glucose POC Glucose 190 H 198 H Lactic Acid Calcium Phosphorus Magnesium AST ALT Lactate Dehydrogenase Total Bilirubin Direct Bilirubin CK-MB (CK-2) C-Reactive Protein NT-Pro-B Natriuret Pep Total Protein Albumin Arterial Blood Glucose Urine WBC (Auto) Urine Creatinine 01/02/20 01/02/20 01/03/20 21:43 23:33 05:42 WBC RBC Hgb Hct MCHC RDW MCV MCH Lymph % (Auto) [place] % (Auto) [place] # Eos # Lymph # (Auto) [place] # (Auto) Eos # (Auto) Seg Neutrophils % Seg Neuts % (Manual) Baso # (Auto) Lymphocytes % (Manual) Monocytes % (Manual) Eosinophils % (Manual) Basophils % (Manual) Seg Neutrophils # Seg Neutrophils # Man Lymphocytes # (Manual) Monocytes # (Manual) Eosinophils # (Manual) Nucleated RBC % Basophils # (Manual) PT INR APTT Heparin Anti-Xa Level 0.10 L ABG pH POC ABG pO2 ABG pO2 ABG HCO3 ABG O2 Saturation ABG Base Excess POC ABG pCO2 ABG Hemoglobin ABG Oxyhemoglobin ABG Chloride ABG Glucose Oxyhemoglobin Sodium Potassium Chloride Carbon Dioxide BUN Creatinine Glucose POC Glucose 180 H 163 H Lactic Acid Calcium Phosphorus Magnesium AST ALT Lactate Dehydrogenase Total Bilirubin Direct Bilirubin CK-MB (CK-2) C-Reactive Protein NT-Pro-B Natriuret Pep Total Protein Albumin Arterial Blood Glucose Urine WBC (Auto) Urine Creatinine 01/03/20 01/03/20 01/03/20 06:50 07:25 07:45 WBC 12.1 H RBC 3.35 L Hgb 9.0 L Hct 28.9 L MCHC 31 L RDW 16.6 H MCV MCH 27 L Lymph % (Auto) 13.0 L [place] % (Auto) 8.6 H [place] # Eos # Lymph # (Auto) [place] # (Auto) 1.0 H Eos # (Auto) Seg Neutrophils % 75.9 H Seg Neuts % (Manual) Baso # (Auto) Lymphocytes % (Manual) Monocytes % (Manual) Eosinophils % (Manual) Basophils % (Manual) Seg Neutrophils # 9.2 H Seg Neutrophils # Man Lymphocytes # (Manual) Monocytes # (Manual) Eosinophils # (Manual) Nucleated RBC % Basophils # (Manual) PT INR APTT Heparin Anti-Xa Level 0.29 L ABG pH POC ABG pO2 ABG pO2 ABG HCO3 ABG O2 Saturation ABG Base Excess POC ABG pCO2 ABG Hemoglobin ABG Oxyhemoglobin ABG Chloride ABG Glucose Oxyhemoglobin Sodium Potassium 3.3 L D Chloride Carbon Dioxide 35 H D BUN 23 H Creatinine 0.6 L Glucose 149 H POC Glucose Lactic Acid Calcium Phosphorus Magnesium AST ALT 88 H Lactate Dehydrogenase Total Bilirubin Direct Bilirubin CK-MB (CK-2) C-Reactive Protein NT-Pro-B Natriuret Pep Total Protein 6.2 L Albumin 2.9 L Arterial Blood Glucose Urine WBC (Auto) Urine Creatinine 01/03/20 01/03/20 01/03/20 12:05 17:42 18:30 WBC RBC Hgb Hct MCHC RDW MCV MCH Lymph % (Auto) [place] % (Auto) [place] # Eos # Lymph # (Auto) [place] # (Auto) Eos # (Auto) Seg Neutrophils % Seg Neuts % (Manual) Baso # (Auto) Lymphocytes % (Manual) Monocytes % (Manual) Eosinophils % (Manual) Basophils % (Manual) Seg Neutrophils # Seg Neutrophils # Man Lymphocytes # (Manual) Monocytes # (Manual) Eosinophils # (Manual) Nucleated RBC % Basophils # (Manual) PT INR APTT Heparin Anti-Xa Level ABG pH POC ABG pO2 ABG pO2 70.7 L ABG HCO3 36.1 H ABG O2 Saturation 94.4 L ABG Base Excess 10.0 H POC ABG pCO2 ABG Hemoglobin 9.7 L ABG Oxyhemoglobin ABG Chloride ABG Glucose Oxyhemoglobin 91.8 L Sodium Potassium Chloride Carbon Dioxide BUN Creatinine Glucose POC Glucose 128 H 132 H Lactic Acid Calcium Phosphorus Magnesium AST ALT Lactate Dehydrogenase Total Bilirubin Direct Bilirubin CK-MB (CK-2) C-Reactive Protein NT-Pro-B Natriuret Pep Total Protein Albumin Arterial Blood Glucose Urine WBC (Auto) Urine Creatinine 01/04/20 01/04/20 01/04/20 00:10 04:26 05:23 WBC RBC Hgb Hct MCHC RDW MCV MCH Lymph % (Auto) [place] % (Auto) [place] # Eos # Lymph # (Auto) [place] # (Auto) Eos # (Auto) Seg Neutrophils % Seg Neuts % (Manual) Baso # (Auto) Lymphocytes % (Manual) Monocytes % (Manual) Eosinophils % (Manual) Basophils % (Manual) Seg Neutrophils # Seg Neutrophils # Man Lymphocytes # (Manual) Monocytes # (Manual) Eosinophils # (Manual) Nucleated RBC % Basophils # (Manual) PT INR APTT Heparin Anti-Xa Level 0.16 L ABG pH POC ABG pO2 ABG pO2 ABG HCO3 ABG O2 Saturation ABG Base Excess POC ABG pCO2 ABG Hemoglobin ABG Oxyhemoglobin ABG Chloride ABG Glucose Oxyhemoglobin Sodium Potassium Chloride Carbon Dioxide BUN Creatinine Glucose POC Glucose 121 H 119 H Lactic Acid Calcium Phosphorus Magnesium AST ALT Lactate Dehydrogenase Total Bilirubin Direct Bilirubin CK-MB (CK-2) C-Reactive Protein NT-Pro-B Natriuret Pep Total Protein Albumin Arterial Blood Glucose Urine WBC (Auto) Urine Creatinine 01/04/20 01/04/20 01/04/20 09:50 09:50 12:18 WBC 15.4 H RBC 3.30 L Hgb 8.7 L Hct 28.2 L MCHC 31 L RDW 17.0 H MCV MCH 26 L Lymph % (Auto) [place] % (Auto) 7.6 H [place] # Eos # Lymph # (Auto) [place] # (Auto) 1.2 H Eos # (Auto) Seg Neutrophils % 75.4 H Seg Neuts % (Manual) Baso # (Auto) Lymphocytes % (Manual) Monocytes % (Manual) Eosinophils % (Manual) Basophils % (Manual) Seg Neutrophils # 11.6 H Seg Neutrophils # Man Lymphocytes # (Manual) Monocytes # (Manual) Eosinophils # (Manual) Nucleated RBC % Basophils # (Manual) PT INR APTT Heparin Anti-Xa Level ABG pH POC ABG pO2 ABG pO2 ABG HCO3 ABG O2 Saturation ABG Base Excess POC ABG pCO2 ABG Hemoglobin ABG Oxyhemoglobin ABG Chloride ABG Glucose Oxyhemoglobin Sodium 148 H Potassium 3.5 L Chloride Carbon Dioxide 32 H BUN Creatinine 0.6 L Glucose 114 H POC Glucose 111 H Lactic Acid Calcium Phosphorus Magnesium AST ALT 59 H Lactate Dehydrogenase Total Bilirubin Direct Bilirubin CK-MB (CK-2) C-Reactive Protein NT-Pro-B Natriuret Pep Total Protein Albumin 2.6 L Arterial Blood Glucose Urine WBC (Auto) Urine Creatinine 01/05/20 01/05/20 01/05/20 04:05 04:05 05:19 WBC 11.7 H RBC 3.50 L Hgb 9.3 L Hct 29.9 L MCHC 31 L RDW 16.6 H MCV MCH 27 L Lymph % (Auto) 13.1 L [place] % (Auto) 9.7 H [place] # Eos # Lymph # (Auto) [place] # (Auto) 1.1 H Eos # (Auto) Seg Neutrophils % 74.0 H Seg Neuts % (Manual) Baso # (Auto) Lymphocytes % (Manual) Monocytes % (Manual) Eosinophils % (Manual) Basophils % (Manual) Seg Neutrophils # 8.6 H Seg Neutrophils # Man Lymphocytes # (Manual) Monocytes # (Manual) Eosinophils # (Manual) Nucleated RBC % Basophils # (Manual) PT INR APTT Heparin Anti-Xa Level ABG pH POC ABG pO2 ABG pO2 ABG HCO3 ABG O2 Saturation ABG Base Excess POC ABG pCO2 ABG Hemoglobin ABG Oxyhemoglobin ABG Chloride ABG Glucose Oxyhemoglobin Sodium 151 H Potassium Chloride Carbon Dioxide 34 H BUN Creatinine 0.7 L Glucose POC Glucose 112 H Lactic Acid Calcium Phosphorus Magnesium AST ALT 59 H Lactate Dehydrogenase Total Bilirubin Direct Bilirubin CK-MB (CK-2) C-Reactive Protein NT-Pro-B Natriuret Pep Total Protein 5.8 L Albumin 2.6 L Arterial Blood Glucose Urine WBC (Auto) Urine Creatinine 01/05/20 01/06/20 01/06/20 16:04 00:23 04:44 WBC RBC 3.36 L Hgb 8.9 L Hct 28.7 L MCHC 31 L RDW 16.9 H MCV MCH 26 L Lymph % (Auto) Crawford % (Auto) 9.4 H Crawford # Eos # Lymph # (Auto) Crawford # (Auto) Eos # (Auto) Seg Neutrophils % Seg Neuts % (Manual) Baso # (Auto) Lymphocytes % (Manual) Monocytes % (Manual) Eosinophils % (Manual) Basophils % (Manual) Seg Neutrophils # Seg Neutrophils # Man Lymphocytes # (Manual) Monocytes # (Manual) Eosinophils # (Manual) Nucleated RBC % Basophils # (Manual) PT INR APTT Heparin Anti-Xa Level ABG pH POC ABG pO2 ABG pO2 ABG HCO3 ABG O2 Saturation ABG Base Excess POC ABG pCO2 ABG Hemoglobin ABG Oxyhemoglobin ABG Chloride ABG Glucose Oxyhemoglobin Sodium 151 H Potassium 3.2 L Chloride Carbon Dioxide 34 H BUN Creatinine 0.6 L Glucose POC Glucose 107 H Lactic Acid Calcium Phosphorus Magnesium AST ALT Lactate Dehydrogenase Total Bilirubin Direct Bilirubin CK-MB (CK-2) C-Reactive Protein NT-Pro-B Natriuret Pep Total Protein Albumin Arterial Blood Glucose Urine WBC (Auto) Urine Creatinine 01/06/20 01/06/20 01/06/20 04:44 05:33 12:04 WBC RBC Hgb Hct MCHC RDW MCV MCH Lymph % (Auto) [place] % (Auto) Crawford # Eos # Lymph # (Auto) [place] # (Auto) Eos # (Auto) Seg Neutrophils % Seg Neuts % (Manual) Baso # (Auto) Lymphocytes % (Manual) Monocytes % (Manual) Eosinophils % (Manual) Basophils % (Manual) Seg Neutrophils # Seg Neutrophils # Man Lymphocytes # (Manual) Monocytes # (Manual) Eosinophils # (Manual) Nucleated RBC % Basophils # (Manual) PT INR APTT Heparin Anti-Xa Level ABG pH POC ABG pO2 ABG pO2 ABG HCO3 ABG O2 Saturation ABG Base Excess POC ABG pCO2 ABG Hemoglobin ABG Oxyhemoglobin ABG Chloride ABG Glucose Oxyhemoglobin Sodium 151 H Potassium 3.4 L Chloride Carbon Dioxide 33 H BUN Creatinine 0.6 L Glucose 118 H POC Glucose 118 H 123 H Lactic Acid Calcium Phosphorus Magnesium AST ALT Lactate Dehydrogenase Total Bilirubin Direct Bilirubin CK-MB (CK-2) C-Reactive Protein NT-Pro-B Natriuret Pep Total Protein 6.2 L Albumin 2.6 L Arterial Blood Glucose Urine WBC (Auto) Urine Creatinine 01/06/20 01/07/20 01/07/20 17:54 00:06 04:10 WBC RBC 3.42 L Hgb 8.9 L Hct 29.0 L MCHC 31 L RDW 17.1 H MCV MCH 26 L Lymph % (Auto) [place] % (Auto) 8.4 H [place] # Eos # Lymph # (Auto) [place] # (Auto) Eos # (Auto) Seg Neutrophils % Seg Neuts % (Manual) Baso # (Auto) Lymphocytes % (Manual) Monocytes % (Manual) Eosinophils % (Manual) Basophils % (Manual) Seg Neutrophils # Seg Neutrophils # Man Lymphocytes # (Manual) Monocytes # (Manual) Eosinophils # (Manual) Nucleated RBC % Basophils # (Manual) PT INR APTT Heparin Anti-Xa Level ABG pH POC ABG pO2 ABG pO2 ABG HCO3 ABG O2 Saturation ABG Base Excess POC ABG pCO2 ABG Hemoglobin ABG Oxyhemoglobin ABG Chloride ABG Glucose Oxyhemoglobin Sodium Potassium Chloride Carbon Dioxide BUN Creatinine Glucose POC Glucose 112 H 126 H Lactic Acid Calcium Phosphorus Magnesium AST ALT Lactate Dehydrogenase Total Bilirubin Direct Bilirubin CK-MB (CK-2) C-Reactive Protein NT-Pro-B Natriuret Pep Total Protein Albumin Arterial Blood Glucose Urine WBC (Auto) Urine Creatinine 01/07/20 01/07/20 01/07/20 04:10 05:59 12:27 WBC RBC Hgb Hct MCHC RDW MCV MCH Lymph % (Auto) [place] % (Auto) [place] # Eos # Lymph # (Auto) [place] # (Auto) Eos # (Auto) Seg Neutrophils % Seg Neuts % (Manual) Baso # (Auto) Lymphocytes % (Manual) Monocytes % (Manual) Eosinophils % (Manual) Basophils % (Manual) Seg Neutrophils # Seg Neutrophils # Man Lymphocytes # (Manual) Monocytes # (Manual) Eosinophils # (Manual) Nucleated RBC % Basophils # (Manual) PT INR APTT Heparin Anti-Xa Level ABG pH POC ABG pO2 ABG pO2 ABG HCO3 ABG O2 Saturation ABG Base Excess POC ABG pCO2 ABG Hemoglobin ABG Oxyhemoglobin ABG Chloride ABG Glucose Oxyhemoglobin Sodium 153 H Potassium 3.5 L Chloride Carbon Dioxide 34 H BUN Creatinine 0.6 L Glucose 121 H POC Glucose 121 H 126 H Lactic Acid Calcium Phosphorus Magnesium AST ALT Lactate Dehydrogenase Total Bilirubin Direct Bilirubin CK-MB (CK-2) C-Reactive Protein NT-Pro-B Natriuret Pep Total Protein 5.9 L Albumin 2.4 L Arterial Blood Glucose Urine WBC (Auto) Urine Creatinine 01/07/20 01/08/20 01/08/20 18:12 00:03 05:41 WBC RBC Hgb Hct MCHC RDW MCV MCH Lymph % (Auto) [place] % (Auto) [place] # Eos # Lymph # (Auto) [place] # (Auto) Eos # (Auto) Seg Neutrophils % Seg Neuts % (Manual) Baso # (Auto) Lymphocytes % (Manual) Monocytes % (Manual) Eosinophils % (Manual) Basophils % (Manual) Seg Neutrophils # Seg Neutrophils # Man Lymphocytes # (Manual) Monocytes # (Manual) Eosinophils # (Manual) Nucleated RBC % Basophils # (Manual) PT INR APTT Heparin Anti-Xa Level ABG pH POC ABG pO2 ABG pO2 ABG HCO3 ABG O2 Saturation ABG Base Excess POC ABG pCO2 ABG Hemoglobin ABG Oxyhemoglobin ABG Chloride ABG Glucose Oxyhemoglobin Sodium Potassium Chloride Carbon Dioxide BUN Creatinine Glucose POC Glucose 124 H 130 H 138 H Lactic Acid Calcium Phosphorus Magnesium AST ALT Lactate Dehydrogenase Total Bilirubin Direct Bilirubin CK-MB (CK-2) C-Reactive Protein NT-Pro-B Natriuret Pep Total Protein Albumin Arterial Blood Glucose Urine WBC (Auto) Urine Creatinine 01/08/20 01/08/20 01/08/20 09:28 11:42 18:21 WBC RBC Hgb Hct MCHC RDW MCV MCH Lymph % (Auto) [place] % (Auto) [place] # Eos # Lymph # (Auto) [place] # (Auto) Eos # (Auto) Seg Neutrophils % Seg Neuts % (Manual) Baso # (Auto) Lymphocytes % (Manual) Monocytes % (Manual) Eosinophils % (Manual) Basophils % (Manual) Seg Neutrophils # Seg Neutrophils # Man Lymphocytes # (Manual) Monocytes # (Manual) Eosinophils # (Manual) Nucleated RBC % Basophils # (Manual) PT INR APTT Heparin Anti-Xa Level ABG pH POC ABG pO2 ABG pO2 ABG HCO3 ABG O2 Saturation ABG Base Excess POC ABG pCO2 ABG Hemoglobin ABG Oxyhemoglobin ABG Chloride ABG Glucose Oxyhemoglobin Sodium Potassium Chloride Carbon Dioxide BUN Creatinine Glucose POC Glucose 181 H 150 H 129 H Lactic Acid Calcium Phosphorus Magnesium AST ALT Lactate Dehydrogenase Total Bilirubin Direct Bilirubin CK-MB (CK-2) C-Reactive Protein NT-Pro-B Natriuret Pep Total Protein Albumin Arterial Blood Glucose Urine WBC (Auto) Urine Creatinine 01/08/20 01/08/20 01/09/20 19:25 23:55 04:11 WBC RBC 3.43 L Hgb 8.9 L Hct 28.7 L MCHC 31 L RDW 17.6 H MCV MCH 26 L Lymph % (Auto) [place] % (Auto) 8.6 H [place] # Eos # Lymph # (Auto) [place] # (Auto) Eos # (Auto) Seg Neutrophils % Seg Neuts % (Manual) Baso # (Auto) Lymphocytes % (Manual) Monocytes % (Manual) Eosinophils % (Manual) Basophils % (Manual) Seg Neutrophils # Seg Neutrophils # Man Lymphocytes # (Manual) Monocytes # (Manual) Eosinophils # (Manual) Nucleated RBC % Basophils # (Manual) PT INR APTT Heparin Anti-Xa Level ABG pH POC ABG pO2 ABG pO2 ABG HCO3 ABG O2 Saturation ABG Base Excess POC ABG pCO2 ABG Hemoglobin ABG Oxyhemoglobin ABG Chloride ABG Glucose Oxyhemoglobin Sodium Potassium Chloride Carbon Dioxide BUN Creatinine 0.7 L Glucose 117 H POC Glucose 132 H Lactic Acid Calcium Phosphorus Magnesium AST ALT Lactate Dehydrogenase Total Bilirubin Direct Bilirubin CK-MB (CK-2) C-Reactive Protein NT-Pro-B Natriuret Pep Total Protein Albumin Arterial Blood Glucose Urine WBC (Auto) Urine Creatinine 01/09/20 01/09/20 01/09/20 04:11 05:38 22:58 WBC RBC Hgb Hct MCHC RDW MCV MCH Lymph % (Auto) [place] % (Auto) [place] # Eos # Lymph # (Auto) [place] # (Auto) Eos # (Auto) Seg Neutrophils % Seg Neuts % (Manual) Baso # (Auto) Lymphocytes % (Manual) Monocytes % (Manual) Eosinophils % (Manual) Basophils % (Manual) Seg Neutrophils # Seg Neutrophils # Man Lymphocytes # (Manual) Monocytes # (Manual) Eosinophils # (Manual) Nucleated RBC % Basophils # (Manual) PT INR APTT Heparin Anti-Xa Level ABG pH POC ABG pO2 ABG pO2 ABG HCO3 ABG O2 Saturation ABG Base Excess POC ABG pCO2 ABG Hemoglobin ABG Oxyhemoglobin ABG Chloride ABG Glucose Oxyhemoglobin Sodium 147 H Potassium 3.3 L D Chloride Carbon Dioxide 32 H BUN Creatinine 0.6 L Glucose 106 H POC Glucose 107 H 113 H Lactic Acid Calcium Phosphorus Magnesium AST ALT Lactate Dehydrogenase Total Bilirubin Direct Bilirubin CK-MB (CK-2) C-Reactive Protein NT-Pro-B Natriuret Pep Total Protein Albumin Arterial Blood Glucose Urine WBC (Auto) Urine Creatinine 01/10/20 01/10/20 01/10/20 04:05 11:36 17:54 WBC RBC Hgb Hct MCHC RDW MCV MCH Lymph % (Auto) [place] % (Auto) [place] # Eos # Lymph # (Auto) [place] # (Auto) Eos # (Auto) Seg Neutrophils % Seg Neuts % (Manual) Baso # (Auto) Lymphocytes % (Manual) Monocytes % (Manual) Eosinophils % (Manual) Basophils % (Manual) Seg Neutrophils # Seg Neutrophils # Man Lymphocytes # (Manual) Monocytes # (Manual) Eosinophils # (Manual) Nucleated RBC % Basophils # (Manual) PT INR APTT Heparin Anti-Xa Level ABG pH POC ABG pO2 ABG pO2 ABG HCO3 ABG O2 Saturation ABG Base Excess POC ABG pCO2 ABG Hemoglobin ABG Oxyhemoglobin ABG Chloride ABG Glucose Oxyhemoglobin Sodium Potassium Chloride Carbon Dioxide BUN Creatinine 0.7 L Glucose 110 H POC Glucose 129 H 117 H Lactic Acid Calcium Phosphorus Magnesium AST ALT Lactate Dehydrogenase Total Bilirubin Direct Bilirubin CK-MB (CK-2) C-Reactive Protein NT-Pro-B Natriuret Pep Total Protein Albumin Arterial Blood Glucose Urine WBC (Auto) Urine Creatinine 01/10/20 01/11/20 01/11/20 23:52 03:19 12:09 WBC RBC Hgb Hct MCHC RDW MCV MCH Lymph % (Auto) [place] % (Auto) [place] # Eos # Lymph # (Auto) [place] # (Auto) Eos # (Auto) Seg Neutrophils % Seg Neuts % (Manual) Baso # (Auto) Lymphocytes % (Manual) Monocytes % (Manual) Eosinophils % (Manual) Basophils % (Manual) Seg Neutrophils # Seg Neutrophils # Man Lymphocytes # (Manual) Monocytes # (Manual) Eosinophils # (Manual) Nucleated RBC % Basophils # (Manual) PT INR APTT Heparin Anti-Xa Level ABG pH POC ABG pO2 ABG pO2 ABG HCO3 ABG O2 Saturation ABG Base Excess POC ABG pCO2 ABG Hemoglobin ABG Oxyhemoglobin ABG Chloride ABG Glucose Oxyhemoglobin Sodium Potassium Chloride Carbon Dioxide BUN Creatinine Glucose POC Glucose 117 H 136 H 115 H Lactic Acid Calcium Phosphorus Magnesium AST ALT Lactate Dehydrogenase Total Bilirubin Direct Bilirubin CK-MB (CK-2) C-Reactive Protein NT-Pro-B Natriuret Pep Total Protein Albumin Arterial Blood Glucose Urine WBC (Auto) Urine Creatinine 01/11/20 01/11/20 01/12/20 18:27 23:28 00:23 WBC RBC Hgb 9.8 L Hct 31.6 L MCHC 31 L RDW 17.8 H MCV 83 L MCH 26 L Lymph % (Auto) [place] % (Auto) 8.0 H [place] # Eos # Lymph # (Auto) [place] # (Auto) Eos # (Auto) Seg Neutrophils % Seg Neuts % (Manual) Baso # (Auto) Lymphocytes % (Manual) Monocytes % (Manual) Eosinophils % (Manual) Basophils % (Manual) Seg Neutrophils # Seg Neutrophils # Man Lymphocytes # (Manual) Monocytes # (Manual) Eosinophils # (Manual) Nucleated RBC % Basophils # (Manual) PT INR APTT Heparin Anti-Xa Level ABG pH POC ABG pO2 ABG pO2 ABG HCO3 ABG O2 Saturation ABG Base Excess POC ABG pCO2 ABG Hemoglobin ABG Oxyhemoglobin ABG Chloride ABG Glucose Oxyhemoglobin Sodium Potassium Chloride Carbon Dioxide BUN Creatinine Glucose POC Glucose 118 H 122 H Lactic Acid Calcium Phosphorus Magnesium AST ALT Lactate Dehydrogenase Total Bilirubin Direct Bilirubin CK-MB (CK-2) C-Reactive Protein NT-Pro-B Natriuret Pep Total Protein Albumin Arterial Blood Glucose Urine WBC (Auto) Urine Creatinine 01/12/20 01/12/20 01/12/20 00:23 04:18 04:18 WBC RBC Hgb 9.6 L Hct 30.9 L MCHC 31 L RDW 17.3 H MCV 81 L MCH 25 L Lymph % (Auto) [place] % (Auto) [place] # Eos # Lymph # (Auto) [place] # (Auto) Eos # (Auto) Seg Neutrophils % Seg Neuts % (Manual) Baso # (Auto) Lymphocytes % (Manual) Monocytes % (Manual) Eosinophils % (Manual) Basophils % (Manual) Seg Neutrophils # Seg Neutrophils # Man Lymphocytes # (Manual) Monocytes # (Manual) Eosinophils # (Manual) Nucleated RBC % Basophils # (Manual) PT INR APTT Heparin Anti-Xa Level ABG pH POC ABG pO2 ABG pO2 ABG HCO3 ABG O2 Saturation ABG Base Excess POC ABG pCO2 ABG Hemoglobin ABG Oxyhemoglobin ABG Chloride ABG Glucose Oxyhemoglobin Sodium Potassium Chloride Carbon Dioxide BUN Creatinine 0.7 L 0.7 L Glucose 111 H 108 H POC Glucose Lactic Acid Calcium Phosphorus Magnesium AST ALT Lactate Dehydrogenase Total Bilirubin Direct Bilirubin CK-MB (CK-2) C-Reactive Protein NT-Pro-B Natriuret Pep Total Protein Albumin 2.6 L Arterial Blood Glucose Urine WBC (Auto) Urine Creatinine 01/12/20 01/12/20 01/12/20 06:03 12:27 13:58 WBC RBC Hgb Hct MCHC RDW MCV MCH Lymph % (Auto) [place] % (Auto) [place] # Eos # Lymph # (Auto) [place] # (Auto) Eos # (Auto) Seg Neutrophils % Seg Neuts % (Manual) Baso # (Auto) Lymphocytes % (Manual) Monocytes % (Manual) Eosinophils % (Manual) Basophils % (Manual) Seg Neutrophils # Seg Neutrophils # Man Lymphocytes # (Manual) Monocytes # (Manual) Eosinophils # (Manual) Nucleated RBC % Basophils # (Manual) PT INR APTT Heparin Anti-Xa Level ABG pH 7.453 H POC ABG pO2 76.6 L ABG pO2 ABG HCO3 ABG O2 Saturation ABG Base Excess POC ABG pCO2 ABG Hemoglobin 10.3 L ABG Oxyhemoglobin ABG Chloride ABG Glucose 99 H Oxyhemoglobin Sodium Potassium Chloride Carbon Dioxide BUN Creatinine Glucose POC Glucose 128 H 121 H Lactic Acid Calcium Phosphorus Magnesium AST ALT Lactate Dehydrogenase Total Bilirubin Direct Bilirubin CK-MB (CK-2) C-Reactive Protein NT-Pro-B Natriuret Pep Total Protein Albumin Arterial Blood Glucose 99 H Urine WBC (Auto) Urine Creatinine 01/12/20 01/13/20 01/13/20 18:24 12:01 17:46 WBC RBC Hgb Hct MCHC RDW MCV MCH Lymph % (Auto) [place] % (Auto) [place] # Eos # Lymph # (Auto) [place] # (Auto) Eos # (Auto) Seg Neutrophils % Seg Neuts % (Manual) Baso # (Auto) Lymphocytes % (Manual) Monocytes % (Manual) Eosinophils % (Manual) Basophils % (Manual) Seg Neutrophils # Seg Neutrophils # Man Lymphocytes # (Manual) Monocytes # (Manual) Eosinophils # (Manual) Nucleated RBC % Basophils # (Manual) PT INR APTT Heparin Anti-Xa Level ABG pH POC ABG pO2 ABG pO2 ABG HCO3 ABG O2 Saturation ABG Base Excess POC ABG pCO2 ABG Hemoglobin ABG Oxyhemoglobin ABG Chloride ABG Glucose Oxyhemoglobin Sodium Potassium Chloride Carbon Dioxide BUN Creatinine Glucose POC Glucose 119 H 107 H 124 H Lactic Acid Calcium Phosphorus Magnesium AST ALT Lactate Dehydrogenase Total Bilirubin Direct Bilirubin CK-MB (CK-2) C-Reactive Protein NT-Pro-B Natriuret Pep Total Protein Albumin Arterial Blood Glucose Urine WBC (Auto) Urine Creatinine 01/13/20 01/14/20 01/14/20 20:40 00:10 05:33 WBC RBC Hgb Hct MCHC RDW MCV MCH Lymph % (Auto) [place] % (Auto) [place] # Eos # Lymph # (Auto) [place] # (Auto) Eos # (Auto) Seg Neutrophils % Seg Neuts % (Manual) Baso # (Auto) Lymphocytes % (Manual) Monocytes % (Manual) Eosinophils % (Manual) Basophils % (Manual) Seg Neutrophils # Seg Neutrophils # Man Lymphocytes # (Manual) Monocytes # (Manual) Eosinophils # (Manual) Nucleated RBC % Basophils # (Manual) PT INR APTT Heparin Anti-Xa Level ABG pH POC ABG pO2 ABG pO2 65.3 L ABG HCO3 31.8 H ABG O2 Saturation 93.5 L ABG Base Excess 6.7 H POC ABG pCO2 ABG Hemoglobin 13.3 L ABG Oxyhemoglobin ABG Chloride ABG Glucose Oxyhemoglobin 90.9 L Sodium Potassium Chloride Carbon Dioxide BUN Creatinine Glucose POC Glucose 111 H 111 H Lactic Acid Calcium Phosphorus Magnesium AST ALT Lactate Dehydrogenase Total Bilirubin Direct Bilirubin CK-MB (CK-2) C-Reactive Protein NT-Pro-B Natriuret Pep Total Protein Albumin Arterial Blood Glucose Urine WBC (Auto) Urine Creatinine 01/14/20 01/14/20 01/14/20 12:10 16:14 16:14 WBC RBC Hgb 10.6 L Hct 34.2 L MCHC 31 L RDW 18.3 H MCV 83 L MCH 26 L Lymph % (Auto) [place] % (Auto) 7.4 H [place] # Eos # Lymph # (Auto) [place] # (Auto) Eos # (Auto) Seg Neutrophils % 71.9 H Seg Neuts % (Manual) Baso # (Auto) Lymphocytes % (Manual) Monocytes % (Manual) Eosinophils % (Manual) Basophils % (Manual) Seg Neutrophils # Seg Neutrophils # Man Lymphocytes # (Manual) Monocytes # (Manual) Eosinophils # (Manual) Nucleated RBC % Basophils # (Manual) PT INR APTT Heparin Anti-Xa Level ABG pH POC ABG pO2 ABG pO2 ABG HCO3 ABG O2 Saturation ABG Base Excess POC ABG pCO2 ABG Hemoglobin ABG Oxyhemoglobin ABG Chloride ABG Glucose Oxyhemoglobin Sodium Potassium Chloride Carbon Dioxide 31 H BUN Creatinine 0.6 L Glucose 131 H POC Glucose 139 H Lactic Acid Calcium Phosphorus Magnesium AST ALT Lactate Dehydrogenase Total Bilirubin Direct Bilirubin CK-MB (CK-2) C-Reactive Protein NT-Pro-B Natriuret Pep Total Protein Albumin Arterial Blood Glucose Urine WBC (Auto) Urine Creatinine 01/14/20 01/15/20 01/15/20 18:05 00:52 05:35 WBC RBC Hgb Hct MCHC RDW MCV MCH Lymph % (Auto) [place] % (Auto) [place] # Eos # Lymph # (Auto) [place] # (Auto) Eos # (Auto) Seg Neutrophils % Seg Neuts % (Manual) Baso # (Auto) Lymphocytes % (Manual) Monocytes % (Manual) Eosinophils % (Manual) Basophils % (Manual) Seg Neutrophils # Seg Neutrophils # Man Lymphocytes # (Manual) Monocytes # (Manual) Eosinophils # (Manual) Nucleated RBC % Basophils # (Manual) PT INR APTT Heparin Anti-Xa Level ABG pH POC ABG pO2 ABG pO2 ABG HCO3 ABG O2 Saturation ABG Base Excess POC ABG pCO2 ABG Hemoglobin ABG Oxyhemoglobin ABG Chloride ABG Glucose Oxyhemoglobin Sodium Potassium Chloride Carbon Dioxide BUN Creatinine Glucose POC Glucose 147 H 140 H 159 H Lactic Acid Calcium Phosphorus Magnesium AST ALT Lactate Dehydrogenase Total Bilirubin Direct Bilirubin CK-MB (CK-2) C-Reactive Protein NT-Pro-B Natriuret Pep Total Protein Albumin Arterial Blood Glucose Urine WBC (Auto) Urine Creatinine 01/15/20 01/15/20 01/16/20 12:52 17:43 00:32 WBC RBC Hgb Hct MCHC RDW MCV MCH Lymph % (Auto) [place] % (Auto) [place] # Eos # Lymph # (Auto) [place] # (Auto) Eos # (Auto) Seg Neutrophils % Seg Neuts % (Manual) Baso # (Auto) Lymphocytes % (Manual) Monocytes % (Manual) Eosinophils % (Manual) Basophils % (Manual) Seg Neutrophils # Seg Neutrophils # Man Lymphocytes # (Manual) Monocytes # (Manual) Eosinophils # (Manual) Nucleated RBC % Basophils # (Manual) PT INR APTT Heparin Anti-Xa Level ABG pH POC ABG pO2 ABG pO2 ABG HCO3 ABG O2 Saturation ABG Base Excess POC ABG pCO2 ABG Hemoglobin ABG Oxyhemoglobin ABG Chloride ABG Glucose Oxyhemoglobin Sodium Potassium Chloride Carbon Dioxide BUN Creatinine Glucose POC Glucose 164 H 167 H 153 H Lactic Acid Calcium Phosphorus Magnesium AST ALT Lactate Dehydrogenase Total Bilirubin Direct Bilirubin CK-MB (CK-2) C-Reactive Protein NT-Pro-B Natriuret Pep Total Protein Albumin Arterial Blood Glucose Urine WBC (Auto) Urine Creatinine 01/16/20 01/16/20 01/17/20 05:46 11:48 06:38 WBC RBC Hgb Hct MCHC RDW MCV MCH Lymph % (Auto) [place] % (Auto) [place] # Eos # Lymph # (Auto) [place] # (Auto) Eos # (Auto) Seg Neutrophils % Seg Neuts % (Manual) Baso # (Auto) Lymphocytes % (Manual) Monocytes % (Manual) Eosinophils % (Manual) Basophils % (Manual) Seg Neutrophils # Seg Neutrophils # Man Lymphocytes # (Manual) Monocytes # (Manual) Eosinophils # (Manual) Nucleated RBC % Basophils # (Manual) PT INR APTT Heparin Anti-Xa Level ABG pH POC ABG pO2 ABG pO2 ABG HCO3 ABG O2 Saturation ABG Base Excess POC ABG pCO2 ABG Hemoglobin ABG Oxyhemoglobin ABG Chloride ABG Glucose Oxyhemoglobin Sodium Potassium Chloride Carbon Dioxide BUN Creatinine Glucose POC Glucose 163 H 155 H 116 H Lactic Acid Calcium Phosphorus Magnesium AST ALT Lactate Dehydrogenase Total Bilirubin Direct Bilirubin CK-MB (CK-2) C-Reactive Protein NT-Pro-B Natriuret Pep Total Protein Albumin Arterial Blood Glucose Urine WBC (Auto) Urine Creatinine 01/17/20 01/17/20 01/18/20 11:36 17:43 00:12 WBC RBC Hgb Hct MCHC RDW MCV MCH Lymph % (Auto) [place] % (Auto) [place] # Eos # Lymph # (Auto) [place] # (Auto) Eos # (Auto) Seg Neutrophils % Seg Neuts % (Manual) Baso # (Auto) Lymphocytes % (Manual) Monocytes % (Manual) Eosinophils % (Manual) Basophils % (Manual) Seg Neutrophils # Seg Neutrophils # Man Lymphocytes # (Manual) Monocytes # (Manual) Eosinophils # (Manual) Nucleated RBC % Basophils # (Manual) PT INR APTT Heparin Anti-Xa Level ABG pH POC ABG pO2 ABG pO2 ABG HCO3 ABG O2 Saturation ABG Base Excess POC ABG pCO2 ABG Hemoglobin ABG Oxyhemoglobin ABG Chloride ABG Glucose Oxyhemoglobin Sodium Potassium Chloride Carbon Dioxide BUN Creatinine Glucose POC Glucose 110 H 134 H 108 H Lactic Acid Calcium Phosphorus Magnesium AST ALT Lactate Dehydrogenase Total Bilirubin Direct Bilirubin CK-MB (CK-2) C-Reactive Protein NT-Pro-B Natriuret Pep Total Protein Albumin Arterial Blood Glucose Urine WBC (Auto) Urine Creatinine 01/18/20 01/18/20 01/18/20 05:37 06:46 06:46 WBC RBC Hgb 10.1 L Hct 32.2 L MCHC 31 L RDW 18.1 H MCV 81 L MCH 25 L Lymph % (Auto) [place] % (Auto) [place] # Eos # Lymph # (Auto) [place] # (Auto) Eos # (Auto) Seg Neutrophils % 71.9 H Seg Neuts % (Manual) Baso # (Auto) Lymphocytes % (Manual) Monocytes % (Manual) Eosinophils % (Manual) Basophils % (Manual) Seg Neutrophils # Seg Neutrophils # Man Lymphocytes # (Manual) Monocytes # (Manual) Eosinophils # (Manual) Nucleated RBC % Basophils # (Manual) PT INR APTT Heparin Anti-Xa Level ABG pH POC ABG pO2 ABG pO2 ABG HCO3 ABG O2 Saturation ABG Base Excess POC ABG pCO2 ABG Hemoglobin ABG Oxyhemoglobin ABG Chloride ABG Glucose Oxyhemoglobin Sodium Potassium Chloride Carbon Dioxide BUN Creatinine 0.7 L Glucose 155 H POC Glucose 168 H Lactic Acid Calcium Phosphorus Magnesium AST ALT Lactate Dehydrogenase Total Bilirubin Direct Bilirubin CK-MB (CK-2) C-Reactive Protein NT-Pro-B Natriuret Pep Total Protein Albumin Arterial Blood Glucose Urine WBC (Auto) Urine Creatinine 01/18/20 01/18/20 01/18/20 12:05 17:14 23:28 WBC RBC Hgb Hct MCHC RDW MCV MCH Lymph % (Auto) [place] % (Auto) [place] # Eos # Lymph # (Auto) [place] # (Auto) Eos # (Auto) Seg Neutrophils % Seg Neuts % (Manual) Baso # (Auto) Lymphocytes % (Manual) Monocytes % (Manual) Eosinophils % (Manual) Basophils % (Manual) Seg Neutrophils # Seg Neutrophils # Man Lymphocytes # (Manual) Monocytes # (Manual) Eosinophils # (Manual) Nucleated RBC % Basophils # (Manual) PT INR APTT Heparin Anti-Xa Level ABG pH POC ABG pO2 ABG pO2 ABG HCO3 ABG O2 Saturation ABG Base Excess POC ABG pCO2 ABG Hemoglobin ABG Oxyhemoglobin ABG Chloride ABG Glucose Oxyhemoglobin Sodium Potassium Chloride Carbon Dioxide BUN Creatinine Glucose POC Glucose 128 H 126 H 128 H Lactic Acid Calcium Phosphorus Magnesium AST ALT Lactate Dehydrogenase Total Bilirubin Direct Bilirubin CK-MB (CK-2) C-Reactive Protein NT-Pro-B Natriuret Pep Total Protein Albumin Arterial Blood Glucose Urine WBC (Auto) Urine Creatinine 01/19/20 01/19/20 01/19/20 05:39 12:33 17:36 WBC RBC Hgb Hct MCHC RDW MCV MCH Lymph % (Auto) [place] % (Auto) [place] # Eos # Lymph # (Auto) [place] # (Auto) Eos # (Auto) Seg Neutrophils % Seg Neuts % (Manual) Baso # (Auto) Lymphocytes % (Manual) Monocytes % (Manual) Eosinophils % (Manual) Basophils % (Manual) Seg Neutrophils # Seg Neutrophils # Man Lymphocytes # (Manual) Monocytes # (Manual) Eosinophils # (Manual) Nucleated RBC % Basophils # (Manual) PT INR APTT Heparin Anti-Xa Level ABG pH POC ABG pO2 ABG pO2 ABG HCO3 ABG O2 Saturation ABG Base Excess POC ABG pCO2 ABG Hemoglobin ABG Oxyhemoglobin ABG Chloride ABG Glucose Oxyhemoglobin Sodium Potassium Chloride Carbon Dioxide BUN Creatinine Glucose POC Glucose 164 H 171 H 152 H Lactic Acid Calcium Phosphorus Magnesium AST ALT Lactate Dehydrogenase Total Bilirubin Direct Bilirubin CK-MB (CK-2) C-Reactive Protein NT-Pro-B Natriuret Pep Total Protein Albumin Arterial Blood Glucose Urine WBC (Auto) Urine Creatinine 01/20/20 01/20/20 01/20/20 00:12 05:20 05:35 WBC RBC Hgb 9.2 L Hct 29.4 L MCHC 31 L RDW 17.9 H MCV 81 L MCH 25 L Lymph % (Auto) [place] % (Auto) [place] # Eos # Lymph # (Auto) [place] # (Auto) Eos # (Auto) Seg Neutrophils % Seg Neuts % (Manual) Baso # (Auto) Lymphocytes % (Manual) Monocytes % (Manual) Eosinophils % (Manual) Basophils % (Manual) Seg Neutrophils # Seg Neutrophils # Man Lymphocytes # (Manual) Monocytes # (Manual) Eosinophils # (Manual) Nucleated RBC % Basophils # (Manual) PT INR APTT Heparin Anti-Xa Level ABG pH POC ABG pO2 ABG pO2 ABG HCO3 ABG O2 Saturation ABG Base Excess POC ABG pCO2 ABG Hemoglobin ABG Oxyhemoglobin ABG Chloride ABG Glucose Oxyhemoglobin Sodium Potassium Chloride Carbon Dioxide BUN Creatinine Glucose POC Glucose 120 H 136 H Lactic Acid Calcium Phosphorus Magnesium AST ALT Lactate Dehydrogenase Total Bilirubin Direct Bilirubin CK-MB (CK-2) C-Reactive Protein NT-Pro-B Natriuret Pep Total Protein Albumin Arterial Blood Glucose Urine WBC (Auto) Urine Creatinine 01/20/20 01/20/20 01/20/20 05:40 11:58 14:55 WBC RBC Hgb 9.0 L Hct 28.3 L MCHC RDW MCV MCH Lymph % (Auto) Crawford % (Auto) Crawford # Eos # Lymph # (Auto) Crawford # (Auto) Eos # (Auto) Seg Neutrophils % Seg Neuts % (Manual) Baso # (Auto) Lymphocytes % (Manual) Monocytes % (Manual) Eosinophils % (Manual) Basophils % (Manual) Seg Neutrophils # Seg Neutrophils # Man Lymphocytes # (Manual) Monocytes # (Manual) Eosinophils # (Manual) Nucleated RBC % Basophils # (Manual) PT INR APTT Heparin Anti-Xa Level ABG pH POC ABG pO2 ABG pO2 ABG HCO3 ABG O2 Saturation ABG Base Excess POC ABG pCO2 ABG Hemoglobin ABG Oxyhemoglobin ABG Chloride ABG Glucose Oxyhemoglobin Sodium Potassium Chloride Carbon Dioxide 32 H BUN 22 H Creatinine 0.7 L Glucose 128 H POC Glucose 152 H Lactic Acid Calcium Phosphorus Magnesium AST ALT Lactate Dehydrogenase Total Bilirubin Direct Bilirubin CK-MB (CK-2) C-Reactive Protein NT-Pro-B Natriuret Pep Total Protein Albumin Arterial Blood Glucose Urine WBC (Auto) Urine Creatinine 01/20/20 01/20/20 01/20/20 14:55 18:14 21:35 WBC RBC Hgb Hct MCHC RDW MCV MCH Lymph % (Auto) [place] % (Auto) [place] # Eos # Lymph # (Auto) [place] # (Auto) Eos # (Auto) Seg Neutrophils % Seg Neuts % (Manual) Baso # (Auto) Lymphocytes % (Manual) Monocytes % (Manual) Eosinophils % (Manual) Basophils % (Manual) Seg Neutrophils # Seg Neutrophils # Man Lymphocytes # (Manual) Monocytes # (Manual) Eosinophils # (Manual) Nucleated RBC % Basophils # (Manual) PT 20.4 H INR 1.72 H APTT 40.6 H Heparin Anti-Xa Level > 2.00 H ABG pH POC ABG pO2 ABG pO2 ABG HCO3 ABG O2 Saturation ABG Base Excess POC ABG pCO2 ABG Hemoglobin ABG Oxyhemoglobin ABG Chloride ABG Glucose Oxyhemoglobin Sodium Potassium Chloride Carbon Dioxide BUN Creatinine Glucose POC Glucose 150 H Lactic Acid Calcium Phosphorus Magnesium AST ALT Lactate Dehydrogenase Total Bilirubin Direct Bilirubin CK-MB (CK-2) C-Reactive Protein NT-Pro-B Natriuret Pep Total Protein Albumin Arterial Blood Glucose Urine WBC (Auto) Urine Creatinine 01/21/20 01/21/20 01/21/20 00:30 05:47 05:59 WBC RBC Hgb Hct MCHC RDW MCV MCH Lymph % (Auto) [place] % (Auto) [place] # Eos # Lymph # (Auto) [place] # (Auto) Eos # (Auto) Seg Neutrophils % Seg Neuts % (Manual) Baso # (Auto) Lymphocytes % (Manual) Monocytes % (Manual) Eosinophils % (Manual) Basophils % (Manual) Seg Neutrophils # Seg Neutrophils # Man Lymphocytes # (Manual) Monocytes # (Manual) Eosinophils # (Manual) Nucleated RBC % Basophils # (Manual) PT INR APTT Heparin Anti-Xa Level 1.93 H ABG pH POC ABG pO2 ABG pO2 ABG HCO3 ABG O2 Saturation ABG Base Excess POC ABG pCO2 ABG Hemoglobin ABG Oxyhemoglobin ABG Chloride ABG Glucose Oxyhemoglobin Sodium Potassium Chloride Carbon Dioxide BUN Creatinine Glucose POC Glucose 126 H 148 H Lactic Acid Calcium Phosphorus Magnesium AST ALT Lactate Dehydrogenase Total Bilirubin Direct Bilirubin CK-MB (CK-2) C-Reactive Protein NT-Pro-B Natriuret Pep Total Protein Albumin Arterial Blood Glucose Urine WBC (Auto) Urine Creatinine 01/21/20 01/21/20 01/21/20 12:32 18:20 23:54 WBC RBC Hgb Hct MCHC RDW MCV MCH Lymph % (Auto) [place] % (Auto) [place] # Eos # Lymph # (Auto) [place] # (Auto) Eos # (Auto) Seg Neutrophils % Seg Neuts % (Manual) Baso # (Auto) Lymphocytes % (Manual) Monocytes % (Manual) Eosinophils % (Manual) Basophils % (Manual) Seg Neutrophils # Seg Neutrophils # Man Lymphocytes # (Manual) Monocytes # (Manual) Eosinophils # (Manual) Nucleated RBC % Basophils # (Manual) PT INR APTT Heparin Anti-Xa Level 1.28 H ABG pH POC ABG pO2 ABG pO2 ABG HCO3 ABG O2 Saturation ABG Base Excess POC ABG pCO2 ABG Hemoglobin ABG Oxyhemoglobin ABG Chloride ABG Glucose Oxyhemoglobin Sodium Potassium Chloride Carbon Dioxide BUN Creatinine Glucose POC Glucose 112 H 146 H Lactic Acid Calcium Phosphorus Magnesium AST ALT Lactate Dehydrogenase Total Bilirubin Direct Bilirubin CK-MB (CK-2) C-Reactive Protein NT-Pro-B Natriuret Pep Total Protein Albumin Arterial Blood Glucose Urine WBC (Auto) Urine Creatinine 01/22/20 01/22/20 01/22/20 04:45 04:45 05:48 WBC RBC Hgb 9.3 L Hct 29.0 L MCHC RDW MCV MCH Lymph % (Auto) [place] % (Auto) [place] # Eos # Lymph # (Auto) [place] # (Auto) Eos # (Auto) Seg Neutrophils % Seg Neuts % (Manual) Baso # (Auto) Lymphocytes % (Manual) Monocytes % (Manual) Eosinophils % (Manual) Basophils % (Manual) Seg Neutrophils # Seg Neutrophils # Man Lymphocytes # (Manual) Monocytes # (Manual) Eosinophils # (Manual) Nucleated RBC % Basophils # (Manual) PT INR APTT Heparin Anti-Xa Level 1.34 H ABG pH POC ABG pO2 ABG pO2 ABG HCO3 ABG O2 Saturation ABG Base Excess POC ABG pCO2 ABG Hemoglobin ABG Oxyhemoglobin ABG Chloride ABG Glucose Oxyhemoglobin Sodium Potassium Chloride Carbon Dioxide BUN Creatinine Glucose POC Glucose 142 H Lactic Acid Calcium Phosphorus Magnesium AST ALT Lactate Dehydrogenase Total Bilirubin Direct Bilirubin CK-MB (CK-2) C-Reactive Protein NT-Pro-B Natriuret Pep Total Protein Albumin Arterial Blood Glucose Urine WBC (Auto) Urine Creatinine 01/22/20 01/22/20 01/22/20 08:09 08:22 09:58 WBC RBC Hgb Hct MCHC RDW MCV MCH Lymph % (Auto) [place] % (Auto) [place] # Eos # Lymph # (Auto) [place] # (Auto) Eos # (Auto) Seg Neutrophils % Seg Neuts % (Manual) Baso # (Auto) Lymphocytes % (Manual) Monocytes % (Manual) Eosinophils % (Manual) Basophils % (Manual) Seg Neutrophils # Seg Neutrophils # Man Lymphocytes # (Manual) Monocytes # (Manual) Eosinophils # (Manual) Nucleated RBC % Basophils # (Manual) PT 16.9 H INR 1.34 H APTT Heparin Anti-Xa Level ABG pH POC ABG pO2 ABG pO2 ABG HCO3 ABG O2 Saturation ABG Base Excess POC ABG pCO2 ABG Hemoglobin ABG Oxyhemoglobin ABG Chloride ABG Glucose Oxyhemoglobin Sodium Potassium Chloride 97.8 L Carbon Dioxide BUN 29 H Creatinine Glucose 128 H POC Glucose 131 H Lactic Acid Calcium Phosphorus Magnesium AST ALT Lactate Dehydrogenase Total Bilirubin Direct Bilirubin CK-MB (CK-2) C-Reactive Protein NT-Pro-B Natriuret Pep Total Protein Albumin Arterial Blood Glucose Urine WBC (Auto) Urine Creatinine 01/22/20 01/22/20 01/22/20 12:44 16:13 18:18 WBC RBC Hgb Hct MCHC RDW MCV MCH Lymph % (Auto) [place] % (Auto) [place] # Eos # Lymph # (Auto) [place] # (Auto) Eos # (Auto) Seg Neutrophils % Seg Neuts % (Manual) Baso # (Auto) Lymphocytes % (Manual) Monocytes % (Manual) Eosinophils % (Manual) Basophils % (Manual) Seg Neutrophils # Seg Neutrophils # Man Lymphocytes # (Manual) Monocytes # (Manual) Eosinophils # (Manual) Nucleated RBC % Basophils # (Manual) PT INR APTT Heparin Anti-Xa Level ABG pH POC ABG pO2 ABG pO2 ABG HCO3 ABG O2 Saturation ABG Base Excess POC ABG pCO2 ABG Hemoglobin ABG Oxyhemoglobin ABG Chloride ABG Glucose Oxyhemoglobin Sodium Potassium Chloride Carbon Dioxide BUN Creatinine Glucose POC Glucose 156 H 133 H 155 H Lactic Acid Calcium Phosphorus Magnesium AST ALT Lactate Dehydrogenase Total Bilirubin Direct Bilirubin CK-MB (CK-2) C-Reactive Protein NT-Pro-B Natriuret Pep Total Protein Albumin Arterial Blood Glucose Urine WBC (Auto) Urine Creatinine 01/22/20 01/23/20 01/23/20 23:22 05:37 12:59 WBC RBC Hgb Hct MCHC RDW MCV MCH Lymph % (Auto) [place] % (Auto) [place] # Eos # Lymph # (Auto) [place] # (Auto) Eos # (Auto) Seg Neutrophils % Seg Neuts % (Manual) Baso # (Auto) Lymphocytes % (Manual) Monocytes % (Manual) Eosinophils % (Manual) Basophils % (Manual) Seg Neutrophils # Seg Neutrophils # Man Lymphocytes # (Manual) Monocytes # (Manual) Eosinophils # (Manual) Nucleated RBC % Basophils # (Manual) PT INR APTT Heparin Anti-Xa Level ABG pH POC ABG pO2 ABG pO2 ABG HCO3 ABG O2 Saturation ABG Base Excess POC ABG pCO2 ABG Hemoglobin ABG Oxyhemoglobin ABG Chloride ABG Glucose Oxyhemoglobin Sodium Potassium Chloride Carbon Dioxide BUN Creatinine Glucose POC Glucose 148 H 163 H 175 H Lactic Acid Calcium Phosphorus Magnesium AST ALT Lactate Dehydrogenase Total Bilirubin Direct Bilirubin CK-MB (CK-2) C-Reactive Protein NT-Pro-B Natriuret Pep Total Protein Albumin Arterial Blood Glucose Urine WBC (Auto) Urine Creatinine 01/23/20 01/23/20 01/24/20 17:28 23:56 04:30 WBC RBC 3.46 L Hgb 8.8 L Hct 27.8 L MCHC RDW 18.2 H MCV 81 L MCH 25 L Lymph % (Auto) [place] % (Auto) 7.8 H [place] # Eos # Lymph # (Auto) [place] # (Auto) Eos # (Auto) Seg Neutrophils % Seg Neuts % (Manual) Baso # (Auto) Lymphocytes % (Manual) Monocytes % (Manual) Eosinophils % (Manual) Basophils % (Manual) Seg Neutrophils # Seg Neutrophils # Man Lymphocytes # (Manual) Monocytes # (Manual) Eosinophils # (Manual) Nucleated RBC % Basophils # (Manual) PT INR APTT Heparin Anti-Xa Level ABG pH POC ABG pO2 ABG pO2 ABG HCO3 ABG O2 Saturation ABG Base Excess POC ABG pCO2 ABG Hemoglobin ABG Oxyhemoglobin ABG Chloride ABG Glucose Oxyhemoglobin Sodium Potassium Chloride Carbon Dioxide BUN Creatinine Glucose POC Glucose 165 H 177 H Lactic Acid Calcium Phosphorus Magnesium AST ALT Lactate Dehydrogenase Total Bilirubin Direct Bilirubin CK-MB (CK-2) C-Reactive Protein NT-Pro-B Natriuret Pep Total Protein Albumin Arterial Blood Glucose Urine WBC (Auto) Urine Creatinine 01/24/20 01/24/20 01/24/20 04:30 07:18 12:06 WBC RBC Hgb Hct MCHC RDW MCV MCH Lymph % (Auto) [place] % (Auto) [place] # Eos # Lymph # (Auto) [place] # (Auto) Eos # (Auto) Seg Neutrophils % Seg Neuts % (Manual) Baso # (Auto) Lymphocytes % (Manual) Monocytes % (Manual) Eosinophils % (Manual) Basophils % (Manual) Seg Neutrophils # Seg Neutrophils # Man Lymphocytes # (Manual) Monocytes # (Manual) Eosinophils # (Manual) Nucleated RBC % Basophils # (Manual) PT INR APTT Heparin Anti-Xa Level ABG pH POC ABG pO2 ABG pO2 ABG HCO3 ABG O2 Saturation ABG Base Excess POC ABG pCO2 ABG Hemoglobin ABG Oxyhemoglobin ABG Chloride ABG Glucose Oxyhemoglobin Sodium Potassium Chloride 97.9 L Carbon Dioxide BUN 31 H Creatinine Glucose 146 H POC Glucose 151 H 133 H Lactic Acid Calcium Phosphorus Magnesium AST ALT Lactate Dehydrogenase Total Bilirubin Direct Bilirubin CK-MB (CK-2) C-Reactive Protein NT-Pro-B Natriuret Pep Total Protein Albumin Arterial Blood Glucose Urine WBC (Auto) Urine Creatinine 01/24/20 01/25/20 01/25/20 17:36 00:08 04:25 WBC RBC 3.50 L Hgb 8.7 L Hct 27.9 L MCHC 31 L RDW 18.2 H MCV 80 L MCH 25 L Lymph % (Auto) [place] % (Auto) 8.5 H [place] # Eos # Lymph # (Auto) [place] # (Auto) Eos # (Auto) Seg Neutrophils % Seg Neuts % (Manual) Baso # (Auto) Lymphocytes % (Manual) Monocytes % (Manual) Eosinophils % (Manual) Basophils % (Manual) Seg Neutrophils # Seg Neutrophils # Man Lymphocytes # (Manual) Monocytes # (Manual) Eosinophils # (Manual) Nucleated RBC % Basophils # (Manual) PT INR APTT Heparin Anti-Xa Level ABG pH POC ABG pO2 ABG pO2 ABG HCO3 ABG O2 Saturation ABG Base Excess POC ABG pCO2 ABG Hemoglobin ABG Oxyhemoglobin ABG Chloride ABG Glucose Oxyhemoglobin Sodium Potassium Chloride Carbon Dioxide BUN Creatinine Glucose POC Glucose 133 H 129 H Lactic Acid Calcium Phosphorus Magnesium AST ALT Lactate Dehydrogenase Total Bilirubin Direct Bilirubin CK-MB (CK-2) C-Reactive Protein NT-Pro-B Natriuret Pep Total Protein Albumin Arterial Blood Glucose Urine WBC (Auto) Urine Creatinine 01/25/20 01/25/20 01/25/20 04:25 05:38 11:52 WBC RBC Hgb Hct MCHC RDW MCV MCH Lymph % (Auto) [place] % (Auto) [place] # Eos # Lymph # (Auto) [place] # (Auto) Eos # (Auto) Seg Neutrophils % Seg Neuts % (Manual) Baso # (Auto) Lymphocytes % (Manual) Monocytes % (Manual) Eosinophils % (Manual) Basophils % (Manual) Seg Neutrophils # Seg Neutrophils # Man Lymphocytes # (Manual) Monocytes # (Manual) Eosinophils # (Manual) Nucleated RBC % Basophils # (Manual) PT INR APTT Heparin Anti-Xa Level ABG pH POC ABG pO2 ABG pO2 ABG HCO3 ABG O2 Saturation ABG Base Excess POC ABG pCO2 ABG Hemoglobin ABG Oxyhemoglobin ABG Chloride ABG Glucose Oxyhemoglobin Sodium Potassium Chloride Carbon Dioxide BUN 30 H Creatinine Glucose 134 H POC Glucose 129 H 134 H Lactic Acid Calcium Phosphorus Magnesium AST ALT Lactate Dehydrogenase Total Bilirubin Direct Bilirubin CK-MB (CK-2) C-Reactive Protein NT-Pro-B Natriuret Pep Total Protein Albumin Arterial Blood Glucose Urine WBC (Auto) Urine Creatinine 01/25/20 01/25/20 01/26/20 17:13 21:02 00:59 WBC RBC Hgb Hct MCHC RDW MCV MCH Lymph % (Auto) [place] % (Auto) [place] # Eos # Lymph # (Auto) [place] # (Auto) Eos # (Auto) Seg Neutrophils % Seg Neuts % (Manual) Baso # (Auto) Lymphocytes % (Manual) Monocytes % (Manual) Eosinophils % (Manual) Basophils % (Manual) Seg Neutrophils # Seg Neutrophils # Man Lymphocytes # (Manual) Monocytes # (Manual) Eosinophils # (Manual) Nucleated RBC % Basophils # (Manual) PT INR APTT Heparin Anti-Xa Level ABG pH POC ABG pO2 ABG pO2 57.5 L ABG HCO3 31.7 H ABG O2 Saturation 90.3 L ABG Base Excess 6.6 H POC ABG pCO2 ABG Hemoglobin 13.0 L ABG Oxyhemoglobin ABG Chloride ABG Glucose Oxyhemoglobin 87.5 L Sodium Potassium Chloride Carbon Dioxide BUN Creatinine Glucose POC Glucose 124 H 196 H Lactic Acid Calcium Phosphorus Magnesium AST ALT Lactate Dehydrogenase Total Bilirubin Direct Bilirubin CK-MB (CK-2) C-Reactive Protein NT-Pro-B Natriuret Pep Total Protein Albumin Arterial Blood Glucose Urine WBC (Auto) Urine Creatinine 01/26/20 01/26/20 01/26/20 03:20 05:46 12:46 WBC RBC Hgb 9.2 L Hct 29.4 L MCHC RDW MCV MCH Lymph % (Auto) [place] % (Auto) [place] # Eos # Lymph # (Auto) [place] # (Auto) Eos # (Auto) Seg Neutrophils % Seg Neuts % (Manual) Baso # (Auto) Lymphocytes % (Manual) Monocytes % (Manual) Eosinophils % (Manual) Basophils % (Manual) Seg Neutrophils # Seg Neutrophils # Man Lymphocytes # (Manual) Monocytes # (Manual) Eosinophils # (Manual) Nucleated RBC % Basophils # (Manual) PT INR APTT Heparin Anti-Xa Level ABG pH POC ABG pO2 ABG pO2 ABG HCO3 ABG O2 Saturation ABG Base Excess POC ABG pCO2 ABG Hemoglobin ABG Oxyhemoglobin ABG Chloride ABG Glucose Oxyhemoglobin Sodium Potassium Chloride Carbon Dioxide BUN Creatinine Glucose POC Glucose 141 H 122 H Lactic Acid Calcium Phosphorus Magnesium AST ALT Lactate Dehydrogenase Total Bilirubin Direct Bilirubin CK-MB (CK-2) C-Reactive Protein NT-Pro-B Natriuret Pep Total Protein Albumin Arterial Blood Glucose Urine WBC (Auto) Urine Creatinine 01/26/20 01/26/20 01/27/20 18:03 23:55 04:47 WBC RBC Hgb Hct MCHC RDW MCV MCH Lymph % (Auto) [place] % (Auto) [place] # Eos # Lymph # (Auto) [place] # (Auto) Eos # (Auto) Seg Neutrophils % Seg Neuts % (Manual) Baso # (Auto) Lymphocytes % (Manual) Monocytes % (Manual) Eosinophils % (Manual) Basophils % (Manual) Seg Neutrophils # Seg Neutrophils # Man Lymphocytes # (Manual) Monocytes # (Manual) Eosinophils # (Manual) Nucleated RBC % Basophils # (Manual) PT INR APTT Heparin Anti-Xa Level ABG pH POC ABG pO2 ABG pO2 ABG HCO3 ABG O2 Saturation ABG Base Excess POC ABG pCO2 ABG Hemoglobin ABG Oxyhemoglobin ABG Chloride ABG Glucose Oxyhemoglobin Sodium Potassium Chloride Carbon Dioxide BUN 30 H Creatinine 0.7 L Glucose 135 H POC Glucose 142 H 159 H Lactic Acid Calcium Phosphorus Magnesium AST ALT Lactate Dehydrogenase Total Bilirubin Direct Bilirubin CK-MB (CK-2) C-Reactive Protein NT-Pro-B Natriuret Pep Total Protein Albumin Arterial Blood Glucose Urine WBC (Auto) Urine Creatinine 01/27/20 01/27/20 01/27/20 05:43 12:06 17:16 WBC RBC Hgb Hct MCHC RDW MCV MCH Lymph % (Auto) [place] % (Auto) [place] # Eos # Lymph # (Auto) [place] # (Auto) Eos # (Auto) Seg Neutrophils % Seg Neuts % (Manual) Baso # (Auto) Lymphocytes % (Manual) Monocytes % (Manual) Eosinophils % (Manual) Basophils % (Manual) Seg Neutrophils # Seg Neutrophils # Man Lymphocytes # (Manual) Monocytes # (Manual) Eosinophils # (Manual) Nucleated RBC % Basophils # (Manual) PT INR APTT Heparin Anti-Xa Level ABG pH POC ABG pO2 ABG pO2 ABG HCO3 ABG O2 Saturation ABG Base Excess POC ABG pCO2 ABG Hemoglobin ABG Oxyhemoglobin ABG Chloride ABG Glucose Oxyhemoglobin Sodium Potassium Chloride Carbon Dioxide BUN Creatinine Glucose POC Glucose 143 H 142 H 128 H Lactic Acid Calcium Phosphorus Magnesium AST ALT Lactate Dehydrogenase Total Bilirubin Direct Bilirubin CK-MB (CK-2) C-Reactive Protein NT-Pro-B Natriuret Pep Total Protein Albumin Arterial Blood Glucose Urine WBC (Auto) Urine Creatinine 01/27/20 01/28/20 01/28/20 23:55 04:37 05:55 WBC RBC Hgb 9.4 L Hct 29.9 L MCHC RDW MCV MCH Lymph % (Auto) [place] % (Auto) [place] # Eos # Lymph # (Auto) [place] # (Auto) Eos # (Auto) Seg Neutrophils % Seg Neuts % (Manual) Baso # (Auto) Lymphocytes % (Manual) Monocytes % (Manual) Eosinophils % (Manual) Basophils % (Manual) Seg Neutrophils # Seg Neutrophils # Man Lymphocytes # (Manual) Monocytes # (Manual) Eosinophils # (Manual) Nucleated RBC % Basophils # (Manual) PT INR APTT Heparin Anti-Xa Level ABG pH POC ABG pO2 ABG pO2 ABG HCO3 ABG O2 Saturation ABG Base Excess POC ABG pCO2 ABG Hemoglobin ABG Oxyhemoglobin ABG Chloride ABG Glucose Oxyhemoglobin Sodium Potassium Chloride Carbon Dioxide BUN Creatinine Glucose POC Glucose 166 H 169 H Lactic Acid Calcium Phosphorus Magnesium AST ALT Lactate Dehydrogenase Total Bilirubin Direct Bilirubin CK-MB (CK-2) C-Reactive Protein NT-Pro-B Natriuret Pep Total Protein Albumin Arterial Blood Glucose Urine WBC (Auto) Urine Creatinine 01/28/20 01/28/20 01/28/20 11:58 17:26 23:46 WBC RBC Hgb Hct MCHC RDW MCV MCH Lymph % (Auto) [place] % (Auto) [place] # Eos # Lymph # (Auto) [place] # (Auto) Eos # (Auto) Seg Neutrophils % Seg Neuts % (Manual) Baso # (Auto) Lymphocytes % (Manual) Monocytes % (Manual) Eosinophils % (Manual) Basophils % (Manual) Seg Neutrophils # Seg Neutrophils # Man Lymphocytes # (Manual) Monocytes # (Manual) Eosinophils # (Manual) Nucleated RBC % Basophils # (Manual) PT INR APTT Heparin Anti-Xa Level ABG pH POC ABG pO2 ABG pO2 ABG HCO3 ABG O2 Saturation ABG Base Excess POC ABG pCO2 ABG Hemoglobin ABG Oxyhemoglobin ABG Chloride ABG Glucose Oxyhemoglobin Sodium Potassium Chloride Carbon Dioxide BUN Creatinine Glucose POC Glucose 130 H 126 H 150 H Lactic Acid Calcium Phosphorus Magnesium AST ALT Lactate Dehydrogenase Total Bilirubin Direct Bilirubin CK-MB (CK-2) C-Reactive Protein NT-Pro-B Natriuret Pep Total Protein Albumin Arterial Blood Glucose Urine WBC (Auto) Urine Creatinine 01/29/20 01/29/20 01/29/20 04:55 06:00 12:28 WBC RBC Hgb Hct MCHC RDW MCV MCH Lymph % (Auto) [place] % (Auto) [place] # Eos # Lymph # (Auto) [place] # (Auto) Eos # (Auto) Seg Neutrophils % Seg Neuts % (Manual) Baso # (Auto) Lymphocytes % (Manual) Monocytes % (Manual) Eosinophils % (Manual) Basophils % (Manual) Seg Neutrophils # Seg Neutrophils # Man Lymphocytes # (Manual) Monocytes # (Manual) Eosinophils # (Manual) Nucleated RBC % Basophils # (Manual) PT INR APTT Heparin Anti-Xa Level ABG pH POC ABG pO2 ABG pO2 ABG HCO3 ABG O2 Saturation ABG Base Excess POC ABG pCO2 ABG Hemoglobin ABG Oxyhemoglobin ABG Chloride ABG Glucose Oxyhemoglobin Sodium Potassium Chloride Carbon Dioxide 34 H BUN Creatinine 0.6 L Glucose 152 H POC Glucose 157 H 156 H Lactic Acid Calcium Phosphorus Magnesium AST ALT Lactate Dehydrogenase Total Bilirubin Direct Bilirubin CK-MB (CK-2) C-Reactive Protein NT-Pro-B Natriuret Pep Total Protein Albumin Arterial Blood Glucose Urine WBC (Auto) Urine Creatinine 01/29/20 01/30/20 01/30/20 19:06 00:29 05:39 WBC RBC Hgb Hct MCHC RDW MCV MCH Lymph % (Auto) [place] % (Auto) [place] # Eos # Lymph # (Auto) [place] # (Auto) Eos # (Auto) Seg Neutrophils % Seg Neuts % (Manual) Baso # (Auto) Lymphocytes % (Manual) Monocytes % (Manual) Eosinophils % (Manual) Basophils % (Manual) Seg Neutrophils # Seg Neutrophils # Man Lymphocytes # (Manual) Monocytes # (Manual) Eosinophils # (Manual) Nucleated RBC % Basophils # (Manual) PT INR APTT Heparin Anti-Xa Level ABG pH POC ABG pO2 ABG pO2 ABG HCO3 ABG O2 Saturation ABG Base Excess POC ABG pCO2 ABG Hemoglobin ABG Oxyhemoglobin ABG Chloride ABG Glucose Oxyhemoglobin Sodium Potassium Chloride Carbon Dioxide BUN Creatinine Glucose POC Glucose 152 H 132 H 159 H Lactic Acid Calcium Phosphorus Magnesium AST ALT Lactate Dehydrogenase Total Bilirubin Direct Bilirubin CK-MB (CK-2) C-Reactive Protein NT-Pro-B Natriuret Pep Total Protein Albumin Arterial Blood Glucose Urine WBC (Auto) Urine Creatinine 01/30/20 01/30/20 01/30/20 12:27 17:42 23:28 WBC RBC Hgb Hct MCHC RDW MCV MCH Lymph % (Auto) [place] % (Auto) [place] # Eos # Lymph # (Auto) [place] # (Auto) Eos # (Auto) Seg Neutrophils % Seg Neuts % (Manual) Baso # (Auto) Lymphocytes % (Manual) Monocytes % (Manual) Eosinophils % (Manual) Basophils % (Manual) Seg Neutrophils # Seg Neutrophils # Man Lymphocytes # (Manual) Monocytes # (Manual) Eosinophils # (Manual) Nucleated RBC % Basophils # (Manual) PT INR APTT Heparin Anti-Xa Level ABG pH POC ABG pO2 ABG pO2 ABG HCO3 ABG O2 Saturation ABG Base Excess POC ABG pCO2 ABG Hemoglobin ABG Oxyhemoglobin ABG Chloride ABG Glucose Oxyhemoglobin Sodium Potassium Chloride Carbon Dioxide BUN Creatinine Glucose POC Glucose 151 H 144 H 164 H Lactic Acid Calcium Phosphorus Magnesium AST ALT Lactate Dehydrogenase Total Bilirubin Direct Bilirubin CK-MB (CK-2) C-Reactive Protein NT-Pro-B Natriuret Pep Total Protein Albumin Arterial Blood Glucose Urine WBC (Auto) Urine Creatinine 01/31/20 01/31/20 01/31/20 05:51 11:51 18:06 WBC RBC Hgb Hct MCHC RDW MCV MCH Lymph % (Auto) [place] % (Auto) [place] # Eos # Lymph # (Auto) [place] # (Auto) Eos # (Auto) Seg Neutrophils % Seg Neuts % (Manual) Baso # (Auto) Lymphocytes % (Manual) Monocytes % (Manual) Eosinophils % (Manual) Basophils % (Manual) Seg Neutrophils # Seg Neutrophils # Man Lymphocytes # (Manual) Monocytes # (Manual) Eosinophils # (Manual) Nucleated RBC % Basophils # (Manual) PT INR APTT Heparin Anti-Xa Level ABG pH POC ABG pO2 ABG pO2 ABG HCO3 ABG O2 Saturation ABG Base Excess POC ABG pCO2 ABG Hemoglobin ABG Oxyhemoglobin ABG Chloride ABG Glucose Oxyhemoglobin Sodium Potassium Chloride Carbon Dioxide BUN Creatinine Glucose POC Glucose 131 H 167 H 210 H Lactic Acid Calcium Phosphorus Magnesium AST ALT Lactate Dehydrogenase Total Bilirubin Direct Bilirubin CK-MB (CK-2) C-Reactive Protein NT-Pro-B Natriuret Pep Total Protein Albumin Arterial Blood Glucose Urine WBC (Auto) Urine Creatinine 01/31/20 01/31/20 02/01/20 19:24 Unknown 00:34 WBC RBC Hgb Hct MCHC RDW MCV MCH Lymph % (Auto) [place] % (Auto) [place] # Eos # Lymph # (Auto) [place] # (Auto) Eos # (Auto) Seg Neutrophils % Seg Neuts % (Manual) Baso # (Auto) Lymphocytes % (Manual) Monocytes % (Manual) Eosinophils % (Manual) Basophils % (Manual) Seg Neutrophils # Seg Neutrophils # Man Lymphocytes # (Manual) Monocytes # (Manual) Eosinophils # (Manual) Nucleated RBC % Basophils # (Manual) PT INR APTT Heparin Anti-Xa Level ABG pH POC ABG pO2 ABG pO2 ABG HCO3 ABG O2 Saturation ABG Base Excess POC ABG pCO2 ABG Hemoglobin ABG Oxyhemoglobin ABG Chloride ABG Glucose Oxyhemoglobin Sodium Potassium Chloride 95.3 L Carbon Dioxide 33 H BUN 36 H Creatinine Glucose 187 H POC Glucose 116 H Lactic Acid Calcium Phosphorus Magnesium AST ALT Lactate Dehydrogenase Total Bilirubin Direct Bilirubin CK-MB (CK-2) C-Reactive Protein NT-Pro-B Natriuret Pep Total Protein Albumin Arterial Blood Glucose Urine WBC (Auto) Urine Creatinine 57.4 H 02/01/20 02/01/20 02/01/20 05:24 10:40 12:29 WBC RBC Hgb Hct MCHC RDW MCV MCH Lymph % (Auto) [place] % (Auto) [place] # Eos # Lymph # (Auto) [place] # (Auto) Eos # (Auto) Seg Neutrophils % Seg Neuts % (Manual) Baso # (Auto) Lymphocytes % (Manual) Monocytes % (Manual) Eosinophils % (Manual) Basophils % (Manual) Seg Neutrophils # Seg Neutrophils # Man Lymphocytes # (Manual) Monocytes # (Manual) Eosinophils # (Manual) Nucleated RBC % Basophils # (Manual) PT INR APTT Heparin Anti-Xa Level ABG pH POC ABG pO2 ABG pO2 ABG HCO3 ABG O2 Saturation ABG Base Excess POC ABG pCO2 ABG Hemoglobin ABG Oxyhemoglobin ABG Chloride ABG Glucose Oxyhemoglobin Sodium Potassium Chloride Carbon Dioxide BUN Creatinine Glucose POC Glucose 142 H 165 H 151 H Lactic Acid Calcium Phosphorus Magnesium AST ALT Lactate Dehydrogenase Total Bilirubin Direct Bilirubin CK-MB (CK-2) C-Reactive Protein NT-Pro-B Natriuret Pep Total Protein Albumin Arterial Blood Glucose Urine WBC (Auto) Urine Creatinine 02/01/20 02/01/20 02/02/20 17:16 23:23 06:36 WBC RBC Hgb Hct MCHC RDW MCV MCH Lymph % (Auto) [place] % (Auto) [place] # Eos # Lymph # (Auto) [place] # (Auto) Eos # (Auto) Seg Neutrophils % Seg Neuts % (Manual) Baso # (Auto) Lymphocytes % (Manual) Monocytes % (Manual) Eosinophils % (Manual) Basophils % (Manual) Seg Neutrophils # Seg Neutrophils # Man Lymphocytes # (Manual) Monocytes # (Manual) Eosinophils # (Manual) Nucleated RBC % Basophils # (Manual) PT INR APTT Heparin Anti-Xa Level ABG pH POC ABG pO2 ABG pO2 ABG HCO3 ABG O2 Saturation ABG Base Excess POC ABG pCO2 ABG Hemoglobin ABG Oxyhemoglobin ABG Chloride ABG Glucose Oxyhemoglobin Sodium Potassium Chloride Carbon Dioxide BUN Creatinine Glucose POC Glucose 137 H 145 H 181 H Lactic Acid Calcium Phosphorus Magnesium AST ALT Lactate Dehydrogenase Total Bilirubin Direct Bilirubin CK-MB (CK-2) C-Reactive Protein NT-Pro-B Natriuret Pep Total Protein Albumin Arterial Blood Glucose Urine WBC (Auto) Urine Creatinine 02/02/20 02/02/20 02/02/20 10:01 12:05 17:54 WBC RBC Hgb Hct MCHC RDW MCV MCH Lymph % (Auto) [place] % (Auto) Crawford # Eos # Lymph # (Auto) [place] # (Auto) Eos # (Auto) Seg Neutrophils % Seg Neuts % (Manual) Baso # (Auto) Lymphocytes % (Manual) Monocytes % (Manual) Eosinophils % (Manual) Basophils % (Manual) Seg Neutrophils # Seg Neutrophils # Man Lymphocytes # (Manual) Monocytes # (Manual) Eosinophils # (Manual) Nucleated RBC % Basophils # (Manual) PT INR APTT Heparin Anti-Xa Level ABG pH POC ABG pO2 ABG pO2 ABG HCO3 ABG O2 Saturation ABG Base Excess POC ABG pCO2 ABG Hemoglobin ABG Oxyhemoglobin ABG Chloride ABG Glucose Oxyhemoglobin Sodium Potassium Chloride 95.3 L Carbon Dioxide BUN 44 H Creatinine Glucose 234 H POC Glucose 184 H 127 H Lactic Acid Calcium Phosphorus Magnesium AST 363 H ALT 457 H Lactate Dehydrogenase Total Bilirubin Direct Bilirubin CK-MB (CK-2) C-Reactive Protein NT-Pro-B Natriuret Pep Total Protein Albumin 3.0 L Arterial Blood Glucose Urine WBC (Auto) Urine Creatinine 02/02/20 02/03/20 02/03/20 23:47 05:32 07:04 WBC 13.0 H RBC Hgb 9.5 L Hct 30.8 L MCHC 31 L RDW 19.6 H MCV 81 L MCH 25 L Lymph % (Auto) [place] % (Auto) 9.4 H Crawford # Eos # Lymph # (Auto) [place] # (Auto) 1.2 H Eos # (Auto) Seg Neutrophils % 72.3 H Seg Neuts % (Manual) Baso # (Auto) Lymphocytes % (Manual) Monocytes % (Manual) Eosinophils % (Manual) Basophils % (Manual) Seg Neutrophils # 9.4 H Seg Neutrophils # Man Lymphocytes # (Manual) Monocytes # (Manual) Eosinophils # (Manual) Nucleated RBC % Basophils # (Manual) PT INR APTT Heparin Anti-Xa Level ABG pH POC ABG pO2 ABG pO2 ABG HCO3 ABG O2 Saturation ABG Base Excess POC ABG pCO2 ABG Hemoglobin ABG Oxyhemoglobin ABG Chloride ABG Glucose Oxyhemoglobin Sodium Potassium Chloride Carbon Dioxide BUN Creatinine Glucose POC Glucose 124 H 129 H Lactic Acid Calcium Phosphorus Magnesium AST ALT Lactate Dehydrogenase Total Bilirubin Direct Bilirubin CK-MB (CK-2) C-Reactive Protein NT-Pro-B Natriuret Pep Total Protein Albumin Arterial Blood Glucose Urine WBC (Auto) Urine Creatinine 02/03/20 02/03/20 02/03/20 07:04 11:32 12:49 WBC RBC Hgb Hct MCHC RDW MCV MCH Lymph % (Auto) [place] % (Auto) Crawford # Eos # Lymph # (Auto) [place] # (Auto) Eos # (Auto) Seg Neutrophils % Seg Neuts % (Manual) Baso # (Auto) Lymphocytes % (Manual) Monocytes % (Manual) Eosinophils % (Manual) Basophils % (Manual) Seg Neutrophils # Seg Neutrophils # Man Lymphocytes # (Manual) Monocytes # (Manual) Eosinophils # (Manual) Nucleated RBC % Basophils # (Manual) PT INR APTT Heparin Anti-Xa Level ABG pH POC ABG pO2 ABG pO2 ABG HCO3 ABG O2 Saturation ABG Base Excess POC ABG pCO2 ABG Hemoglobin ABG Oxyhemoglobin ABG Chloride ABG Glucose Oxyhemoglobin Sodium Potassium Chloride 97.9 L Carbon Dioxide 33 H BUN 39 H Creatinine Glucose 119 H POC Glucose 138 H Lactic Acid Calcium Phosphorus Magnesium 2.60 H AST ALT Lactate Dehydrogenase Total Bilirubin Direct Bilirubin CK-MB (CK-2) C-Reactive Protein NT-Pro-B Natriuret Pep Total Protein Albumin Arterial Blood Glucose Urine WBC (Auto) Urine Creatinine 02/03/20 02/04/20 02/04/20 18:28 16:24 16:24 WBC RBC 3.38 L Hgb 8.6 L Hct 26.9 L MCHC RDW 19.5 H MCV 80 L MCH 26 L Lymph % (Auto) [place] % (Auto) Crawford # Eos # Lymph # (Auto) [place] # (Auto) Eos # (Auto) Seg Neutrophils % Seg Neuts % (Manual) Baso # (Auto) Lymphocytes % (Manual) Monocytes % (Manual) Eosinophils % (Manual) Basophils % (Manual) Seg Neutrophils # Seg Neutrophils # Man Lymphocytes # (Manual) Monocytes # (Manual) Eosinophils # (Manual) Nucleated RBC % Basophils # (Manual) PT INR APTT Heparin Anti-Xa Level ABG pH POC ABG pO2 ABG pO2 ABG HCO3 ABG O2 Saturation ABG Base Excess POC ABG pCO2 ABG Hemoglobin ABG Oxyhemoglobin ABG Chloride ABG Glucose Oxyhemoglobin Sodium Potassium 3.4 L Chloride Carbon Dioxide 31 H BUN 37 H Creatinine Glucose 70 L POC Glucose 118 H Lactic Acid Calcium Phosphorus Magnesium AST 169 H ALT 394 H Lactate Dehydrogenase Total Bilirubin 1.50 H Direct Bilirubin CK-MB (CK-2) C-Reactive Protein NT-Pro-B Natriuret Pep Total Protein Albumin 2.9 L Arterial Blood Glucose Urine WBC (Auto) Urine Creatinine 02/05/20 02/05/20 02/05/20 00:41 06:37 17:14 WBC RBC Hgb Hct MCHC RDW MCV MCH Lymph % (Auto) [place] % (Auto) [place] # Eos # Lymph # (Auto) [place] # (Auto) Eos # (Auto) Seg Neutrophils % Seg Neuts % (Manual) Baso # (Auto) Lymphocytes % (Manual) Monocytes % (Manual) Eosinophils % (Manual) Basophils % (Manual) Seg Neutrophils # Seg Neutrophils # Man Lymphocytes # (Manual) Monocytes # (Manual) Eosinophils # (Manual) Nucleated RBC % Basophils # (Manual) PT INR APTT Heparin Anti-Xa Level ABG pH POC ABG pO2 ABG pO2 ABG HCO3 ABG O2 Saturation ABG Base Excess POC ABG pCO2 ABG Hemoglobin ABG Oxyhemoglobin ABG Chloride ABG Glucose Oxyhemoglobin Sodium Potassium 3.1 L Chloride Carbon Dioxide 35 H BUN 32 H Creatinine 0.7 L Glucose POC Glucose 69 L 127 H Lactic Acid Calcium Phosphorus Magnesium AST 134 H ALT 352 H Lactate Dehydrogenase Total Bilirubin 1.60 H Direct Bilirubin CK-MB (CK-2) C-Reactive Protein NT-Pro-B Natriuret Pep Total Protein Albumin 2.9 L Arterial Blood Glucose Urine WBC (Auto) Urine Creatinine 02/05/20 02/06/20 02/06/20 23:43 05:32 08:01 WBC RBC Hgb Hct MCHC RDW MCV MCH Lymph % (Auto) [place] % (Auto) [place] # Eos # Lymph # (Auto) [place] # (Auto) Eos # (Auto) Seg Neutrophils % Seg Neuts % (Manual) Baso # (Auto) Lymphocytes % (Manual) Monocytes % (Manual) Eosinophils % (Manual) Basophils % (Manual) Seg Neutrophils # Seg Neutrophils # Man Lymphocytes # (Manual) Monocytes # (Manual) Eosinophils # (Manual) Nucleated RBC % Basophils # (Manual) PT INR APTT Heparin Anti-Xa Level ABG pH POC ABG pO2 ABG pO2 ABG HCO3 ABG O2 Saturation ABG Base Excess POC ABG pCO2 ABG Hemoglobin ABG Oxyhemoglobin ABG Chloride ABG Glucose Oxyhemoglobin Sodium Potassium Chloride Carbon Dioxide BUN 40 H Creatinine Glucose 132 H POC Glucose 129 H 131 H Lactic Acid Calcium Phosphorus Magnesium AST ALT Lactate Dehydrogenase Total Bilirubin Direct Bilirubin CK-MB (CK-2) C-Reactive Protein NT-Pro-B Natriuret Pep Total Protein Albumin Arterial Blood Glucose Urine WBC (Auto) Urine Creatinine 02/06/20 02/06/20 02/06/20 11:51 16:28 17:32 WBC RBC Hgb Hct MCHC RDW MCV MCH Lymph % (Auto) [place] % (Auto) [place] # Eos # Lymph # (Auto) [place] # (Auto) Eos # (Auto) Seg Neutrophils % Seg Neuts % (Manual) Baso # (Auto) Lymphocytes % (Manual) Monocytes % (Manual) Eosinophils % (Manual) Basophils % (Manual) Seg Neutrophils # Seg Neutrophils # Man Lymphocytes # (Manual) Monocytes # (Manual) Eosinophils # (Manual) Nucleated RBC % Basophils # (Manual) PT INR APTT Heparin Anti-Xa Level ABG pH POC ABG pO2 ABG pO2 ABG HCO3 ABG O2 Saturation ABG Base Excess POC ABG pCO2 ABG Hemoglobin ABG Oxyhemoglobin ABG Chloride ABG Glucose Oxyhemoglobin Sodium Potassium Chloride Carbon Dioxide BUN Creatinine Glucose POC Glucose 167 H 129 H Lactic Acid Calcium Phosphorus Magnesium AST 824 H ALT 948 H Lactate Dehydrogenase Total Bilirubin 1.70 H Direct Bilirubin 1.2 H CK-MB (CK-2) C-Reactive Protein NT-Pro-B Natriuret Pep Total Protein Albumin 2.9 L Arterial Blood Glucose Urine WBC (Auto) Urine Creatinine 02/07/20 02/07/20 02/07/20 00:11 04:57 04:57 WBC RBC Hgb 9.2 L Hct 29.7 L MCHC 31 L RDW 20.2 H MCV 80 L MCH 25 L Lymph % (Auto) [place] % (Auto) [place] # Eos # Lymph # (Auto) [place] # (Auto) Eos # (Auto) Seg Neutrophils % Seg Neuts % (Manual) Baso # (Auto) Lymphocytes % (Manual) Monocytes % (Manual) Eosinophils % (Manual) Basophils % (Manual) Seg Neutrophils # Seg Neutrophils # Man Lymphocytes # (Manual) Monocytes # (Manual) Eosinophils # (Manual) Nucleated RBC % Basophils # (Manual) PT INR APTT Heparin Anti-Xa Level ABG pH POC ABG pO2 ABG pO2 ABG HCO3 ABG O2 Saturation ABG Base Excess POC ABG pCO2 ABG Hemoglobin ABG Oxyhemoglobin ABG Chloride ABG Glucose Oxyhemoglobin Sodium Potassium 3.4 L D Chloride Carbon Dioxide 32 H BUN 39 H Creatinine Glucose 106 H POC Glucose 121 H Lactic Acid Calcium Phosphorus Magnesium AST ALT Lactate Dehydrogenase Total Bilirubin Direct Bilirubin CK-MB (CK-2) C-Reactive Protein NT-Pro-B Natriuret Pep Total Protein Albumin Arterial Blood Glucose Urine WBC (Auto) Urine Creatinine 02/07/20 02/07/20 02/07/20 15:03 15:03 17:11 WBC RBC Hgb Hct MCHC RDW MCV MCH Lymph % (Auto) [place] % (Auto) [place] # Eos # Lymph # (Auto) [place] # (Auto) Eos # (Auto) Seg Neutrophils % Seg Neuts % (Manual) Baso # (Auto) Lymphocytes % (Manual) Monocytes % (Manual) Eosinophils % (Manual) Basophils % (Manual) Seg Neutrophils # Seg Neutrophils # Man Lymphocytes # (Manual) Monocytes # (Manual) Eosinophils # (Manual) Nucleated RBC % Basophils # (Manual) PT 27.0 H INR 2.46 H APTT Heparin Anti-Xa Level ABG pH POC ABG pO2 ABG pO2 ABG HCO3 ABG O2 Saturation ABG Base Excess POC ABG pCO2 ABG Hemoglobin ABG Oxyhemoglobin ABG Chloride ABG Glucose Oxyhemoglobin Sodium Potassium Chloride Carbon Dioxide BUN Creatinine Glucose POC Glucose 109 H Lactic Acid Calcium Phosphorus Magnesium AST 424 H ALT 796 H Lactate Dehydrogenase Total Bilirubin 1.60 H Direct Bilirubin 1.2 H CK-MB (CK-2) C-Reactive Protein NT-Pro-B Natriuret Pep Total Protein Albumin 2.9 L Arterial Blood Glucose Urine WBC (Auto) Urine Creatinine 02/08/20 02/08/20 02/08/20 12:14 17:44 19:00 WBC RBC Hgb Hct MCHC RDW MCV MCH Lymph % (Auto) [place] % (Auto) [place] # Eos # Lymph # (Auto) [place] # (Auto) Eos # (Auto) Seg Neutrophils % Seg Neuts % (Manual) Baso # (Auto) Lymphocytes % (Manual) Monocytes % (Manual) Eosinophils % (Manual) Basophils % (Manual) Seg Neutrophils # Seg Neutrophils # Man Lymphocytes # (Manual) Monocytes # (Manual) Eosinophils # (Manual) Nucleated RBC % Basophils # (Manual) PT INR APTT Heparin Anti-Xa Level ABG pH POC ABG pO2 ABG pO2 ABG HCO3 ABG O2 Saturation ABG Base Excess POC ABG pCO2 ABG Hemoglobin ABG Oxyhemoglobin ABG Chloride ABG Glucose Oxyhemoglobin Sodium Potassium Chloride Carbon Dioxide BUN Creatinine Glucose POC Glucose 111 H 107 H Lactic Acid Calcium Phosphorus Magnesium AST 309 H ALT 650 H Lactate Dehydrogenase Total Bilirubin 1.30 H Direct Bilirubin 0.9 H CK-MB (CK-2) C-Reactive Protein NT-Pro-B Natriuret Pep Total Protein 6.2 L Albumin 2.7 L Arterial Blood Glucose Urine WBC (Auto) Urine Creatinine 02/09/20 02/09/20 02/09/20 05:41 12:28 18:07 WBC RBC Hgb Hct MCHC RDW MCV MCH Lymph % (Auto) [place] % (Auto) [place] # Eos # Lymph # (Auto) [place] # (Auto) Eos # (Auto) Seg Neutrophils % Seg Neuts % (Manual) Baso # (Auto) Lymphocytes % (Manual) Monocytes % (Manual) Eosinophils % (Manual) Basophils % (Manual) Seg Neutrophils # Seg Neutrophils # Man Lymphocytes # (Manual) Monocytes # (Manual) Eosinophils # (Manual) Nucleated RBC % Basophils # (Manual) PT INR APTT Heparin Anti-Xa Level ABG pH POC ABG pO2 ABG pO2 ABG HCO3 ABG O2 Saturation ABG Base Excess POC ABG pCO2 ABG Hemoglobin ABG Oxyhemoglobin ABG Chloride ABG Glucose Oxyhemoglobin Sodium Potassium Chloride Carbon Dioxide BUN Creatinine Glucose POC Glucose 113 H 140 H 143 H Lactic Acid Calcium Phosphorus Magnesium AST ALT Lactate Dehydrogenase Total Bilirubin Direct Bilirubin CK-MB (CK-2) C-Reactive Protein NT-Pro-B Natriuret Pep Total Protein Albumin Arterial Blood Glucose Urine WBC (Auto) Urine Creatinine 02/09/20 02/09/20 02/10/20 21:40 23:45 06:00 WBC RBC Hgb Hct MCHC RDW MCV MCH Lymph % (Auto) [place] % (Auto) [place] # Eos # Lymph # (Auto) [place] # (Auto) Eos # (Auto) Seg Neutrophils % Seg Neuts % (Manual) Baso # (Auto) Lymphocytes % (Manual) Monocytes % (Manual) Eosinophils % (Manual) Basophils % (Manual) Seg Neutrophils # Seg Neutrophils # Man Lymphocytes # (Manual) Monocytes # (Manual) Eosinophils # (Manual) Nucleated RBC % Basophils # (Manual) PT INR APTT Heparin Anti-Xa Level ABG pH POC ABG pO2 ABG pO2 59.8 L ABG HCO3 33.3 H ABG O2 Saturation 88.9 L ABG Base Excess 7.4 H POC ABG pCO2 ABG Hemoglobin 10.4 L ABG Oxyhemoglobin ABG Chloride ABG Glucose Oxyhemoglobin 86.3 L Sodium Potassium Chloride Carbon Dioxide BUN Creatinine Glucose POC Glucose 127 H 114 H Lactic Acid Calcium Phosphorus Magnesium AST ALT Lactate Dehydrogenase Total Bilirubin Direct Bilirubin CK-MB (CK-2) C-Reactive Protein NT-Pro-B Natriuret Pep Total Protein Albumin Arterial Blood Glucose Urine WBC (Auto) Urine Creatinine 02/10/20 02/10/20 02/10/20 07:40 07:40 13:38 WBC 11.5 H RBC Hgb 10.6 L Hct 34.7 L MCHC 31 L RDW 19.8 H MCV 79 L MCH 24 L Lymph % (Auto) [place] % (Auto) 9.2 H [place] # Eos # Lymph # (Auto) [place] # (Auto) 1.1 H Eos # (Auto) Seg Neutrophils % Seg Neuts % (Manual) Baso # (Auto) Lymphocytes % (Manual) Monocytes % (Manual) Eosinophils % (Manual) Basophils % (Manual) Seg Neutrophils # Seg Neutrophils # Man Lymphocytes # (Manual) Monocytes # (Manual) Eosinophils # (Manual) Nucleated RBC % Basophils # (Manual) PT INR APTT Heparin Anti-Xa Level ABG pH POC ABG pO2 ABG pO2 ABG HCO3 ABG O2 Saturation ABG Base Excess POC ABG pCO2 ABG Hemoglobin ABG Oxyhemoglobin ABG Chloride ABG Glucose Oxyhemoglobin Sodium 151 H Potassium Chloride 107.2 H Carbon Dioxide 36 H BUN 25 H Creatinine 0.7 L Glucose 114 H POC Glucose 116 H Lactic Acid Calcium Phosphorus Magnesium 2.40 H AST ALT Lactate Dehydrogenase Total Bilirubin Direct Bilirubin CK-MB (CK-2) C-Reactive Protein NT-Pro-B Natriuret Pep Total Protein Albumin Arterial Blood Glucose Urine WBC (Auto) Urine Creatinine 02/10/20 02/11/20 02/11/20 17:44 05:47 12:21 WBC RBC Hgb Hct MCHC RDW MCV MCH Lymph % (Auto) [place] % (Auto) [place] # Eos # Lymph # (Auto) [place] # (Auto) Eos # (Auto) Seg Neutrophils % Seg Neuts % (Manual) Baso # (Auto) Lymphocytes % (Manual) Monocytes % (Manual) Eosinophils % (Manual) Basophils % (Manual) Seg Neutrophils # Seg Neutrophils # Man Lymphocytes # (Manual) Monocytes # (Manual) Eosinophils # (Manual) Nucleated RBC % Basophils # (Manual) PT INR APTT Heparin Anti-Xa Level ABG pH POC ABG pO2 ABG pO2 ABG HCO3 ABG O2 Saturation ABG Base Excess POC ABG pCO2 ABG Hemoglobin ABG Oxyhemoglobin ABG Chloride ABG Glucose Oxyhemoglobin Sodium Potassium Chloride Carbon Dioxide BUN Creatinine Glucose POC Glucose 139 H 173 H 143 H Lactic Acid Calcium Phosphorus Magnesium AST ALT Lactate Dehydrogenase Total Bilirubin Direct Bilirubin CK-MB (CK-2) C-Reactive Protein NT-Pro-B Natriuret Pep Total Protein Albumin Arterial Blood Glucose Urine WBC (Auto) Urine Creatinine 02/11/20 02/11/20 02/12/20 13:43 14:11 00:15 WBC RBC Hgb Hct MCHC RDW MCV MCH Lymph % (Auto) [place] % (Auto) [place] # Eos # Lymph # (Auto) [place] # (Auto) Eos # (Auto) Seg Neutrophils % Seg Neuts % (Manual) Baso # (Auto) Lymphocytes % (Manual) Monocytes % (Manual) Eosinophils % (Manual) Basophils % (Manual) Seg Neutrophils # Seg Neutrophils # Man Lymphocytes # (Manual) Monocytes # (Manual) Eosinophils # (Manual) Nucleated RBC % Basophils # (Manual) PT INR APTT Heparin Anti-Xa Level ABG pH 7.502 H POC ABG pO2 77.7 L ABG pO2 ABG HCO3 ABG O2 Saturation ABG Base Excess POC ABG pCO2 ABG Hemoglobin 11.1 L ABG Oxyhemoglobin ABG Chloride 108.0 H ABG Glucose 151 H Oxyhemoglobin Sodium Potassium Chloride Carbon Dioxide BUN Creatinine Glucose POC Glucose 130 H 125 H Lactic Acid Calcium Phosphorus Magnesium AST ALT Lactate Dehydrogenase Total Bilirubin Direct Bilirubin CK-MB (CK-2) C-Reactive Protein NT-Pro-B Natriuret Pep Total Protein Albumin Arterial Blood Glucose 151 H Urine WBC (Auto) Urine Creatinine 02/12/20 02/12/20 02/12/20 04:56 04:56 17:42 WBC RBC Hgb 9.9 L Hct 31.8 L MCHC 31 L RDW 19.4 H MCV 79 L MCH 25 L Lymph % (Auto) [place] % (Auto) 10.3 H [place] # Eos # Lymph # (Auto) [place] # (Auto) 1.0 H Eos # (Auto) Seg Neutrophils % Seg Neuts % (Manual) Baso # (Auto) Lymphocytes % (Manual) Monocytes % (Manual) Eosinophils % (Manual) Basophils % (Manual) Seg Neutrophils # Seg Neutrophils # Man Lymphocytes # (Manual) Monocytes # (Manual) Eosinophils # (Manual) Nucleated RBC % Basophils # (Manual) PT INR APTT Heparin Anti-Xa Level ABG pH POC ABG pO2 ABG pO2 ABG HCO3 ABG O2 Saturation ABG Base Excess POC ABG pCO2 ABG Hemoglobin ABG Oxyhemoglobin ABG Chloride ABG Glucose Oxyhemoglobin Sodium 149 H Potassium Chloride 108.6 H Carbon Dioxide BUN 28 H Creatinine 0.7 L Glucose 108 H POC Glucose 113 H Lactic Acid Calcium Phosphorus Magnesium AST ALT Lactate Dehydrogenase Total Bilirubin Direct Bilirubin CK-MB (CK-2) C-Reactive Protein NT-Pro-B Natriuret Pep Total Protein Albumin Arterial Blood Glucose Urine WBC (Auto) Urine Creatinine 02/13/20 02/13/20 02/13/20 00:39 05:36 12:25 WBC RBC Hgb Hct MCHC RDW MCV MCH Lymph % (Auto) [place] % (Auto) [place] # Eos # Lymph # (Auto) [place] # (Auto) Eos # (Auto) Seg Neutrophils % Seg Neuts % (Manual) Baso # (Auto) Lymphocytes % (Manual) Monocytes % (Manual) Eosinophils % (Manual) Basophils % (Manual) Seg Neutrophils # Seg Neutrophils # Man Lymphocytes # (Manual) Monocytes # (Manual) Eosinophils # (Manual) Nucleated RBC % Basophils # (Manual) PT INR APTT Heparin Anti-Xa Level ABG pH POC ABG pO2 ABG pO2 ABG HCO3 ABG O2 Saturation ABG Base Excess POC ABG pCO2 ABG Hemoglobin ABG Oxyhemoglobin ABG Chloride ABG Glucose Oxyhemoglobin Sodium Potassium Chloride Carbon Dioxide BUN Creatinine Glucose POC Glucose 129 H 126 H 129 H Lactic Acid Calcium Phosphorus Magnesium AST ALT Lactate Dehydrogenase Total Bilirubin Direct Bilirubin CK-MB (CK-2) C-Reactive Protein NT-Pro-B Natriuret Pep Total Protein Albumin Arterial Blood Glucose Urine WBC (Auto) Urine Creatinine 02/13/20 02/14/20 02/14/20 17:59 00:15 05:41 WBC RBC Hgb Hct MCHC RDW MCV MCH Lymph % (Auto) [place] % (Auto) [place] # Eos # Lymph # (Auto) [place] # (Auto) Eos # (Auto) Seg Neutrophils % Seg Neuts % (Manual) Baso # (Auto) Lymphocytes % (Manual) Monocytes % (Manual) Eosinophils % (Manual) Basophils % (Manual) Seg Neutrophils # Seg Neutrophils # Man Lymphocytes # (Manual) Monocytes # (Manual) Eosinophils # (Manual) Nucleated RBC % Basophils # (Manual) PT INR APTT Heparin Anti-Xa Level ABG pH POC ABG pO2 ABG pO2 ABG HCO3 ABG O2 Saturation ABG Base Excess POC ABG pCO2 ABG Hemoglobin ABG Oxyhemoglobin ABG Chloride ABG Glucose Oxyhemoglobin Sodium Potassium Chloride Carbon Dioxide BUN Creatinine Glucose POC Glucose 153 H 130 H 130 H Lactic Acid Calcium Phosphorus Magnesium AST ALT Lactate Dehydrogenase Total Bilirubin Direct Bilirubin CK-MB (CK-2) C-Reactive Protein NT-Pro-B Natriuret Pep Total Protein Albumin Arterial Blood Glucose Urine WBC (Auto) Urine Creatinine 02/14/20 02/15/20 02/15/20 11:32 00:12 05:27 WBC RBC Hgb Hct MCHC RDW MCV MCH Lymph % (Auto) [place] % (Auto) [place] # Eos # Lymph # (Auto) [place] # (Auto) Eos # (Auto) Seg Neutrophils % Seg Neuts % (Manual) Baso # (Auto) Lymphocytes % (Manual) Monocytes % (Manual) Eosinophils % (Manual) Basophils % (Manual) Seg Neutrophils # Seg Neutrophils # Man Lymphocytes # (Manual) Monocytes # (Manual) Eosinophils # (Manual) Nucleated RBC % Basophils # (Manual) PT INR APTT Heparin Anti-Xa Level ABG pH POC ABG pO2 ABG pO2 ABG HCO3 ABG O2 Saturation ABG Base Excess POC ABG pCO2 ABG Hemoglobin ABG Oxyhemoglobin ABG Chloride ABG Glucose Oxyhemoglobin Sodium Potassium Chloride Carbon Dioxide BUN Creatinine Glucose POC Glucose 157 H 124 H 111 H Lactic Acid Calcium Phosphorus Magnesium AST ALT Lactate Dehydrogenase Total Bilirubin Direct Bilirubin CK-MB (CK-2) C-Reactive Protein NT-Pro-B Natriuret Pep Total Protein Albumin Arterial Blood Glucose Urine WBC (Auto) Urine Creatinine 02/15/20 02/15/20 02/15/20 06:59 06:59 11:14 WBC RBC Hgb 10.4 L Hct 33.7 L MCHC 31 L RDW 19.4 H MCV 80 L MCH 24 L Lymph % (Auto) [place] % (Auto) [place] # Eos # Lymph # (Auto) [place] # (Auto) Eos # (Auto) Seg Neutrophils % Seg Neuts % (Manual) Baso # (Auto) Lymphocytes % (Manual) Monocytes % (Manual) Eosinophils % (Manual) Basophils % (Manual) 2.0 H Seg Neutrophils # Seg Neutrophils # Man Lymphocytes # (Manual) Monocytes # (Manual) Eosinophils # (Manual) Nucleated RBC % 1.0 H Basophils # (Manual) 0.2 H PT INR APTT Heparin Anti-Xa Level ABG pH POC ABG pO2 ABG pO2 ABG HCO3 ABG O2 Saturation ABG Base Excess POC ABG pCO2 ABG Hemoglobin ABG Oxyhemoglobin ABG Chloride ABG Glucose Oxyhemoglobin Sodium 149 H Potassium Chloride 108.4 H Carbon Dioxide 31 H BUN 40 H Creatinine 0.7 L Glucose 150 H POC Glucose 128 H Lactic Acid Calcium Phosphorus Magnesium AST ALT Lactate Dehydrogenase Total Bilirubin Direct Bilirubin CK-MB (CK-2) C-Reactive Protein NT-Pro-B Natriuret Pep Total Protein Albumin Arterial Blood Glucose Urine WBC (Auto) Urine Creatinine 02/15/20 02/15/20 02/16/20 17:46 23:50 05:03 WBC RBC Hgb Hct MCHC RDW MCV MCH Lymph % (Auto) [place] % (Auto) [place] # Eos # Lymph # (Auto) [place] # (Auto) Eos # (Auto) Seg Neutrophils % Seg Neuts % (Manual) Baso # (Auto) Lymphocytes % (Manual) Monocytes % (Manual) Eosinophils % (Manual) Basophils % (Manual) Seg Neutrophils # Seg Neutrophils # Man Lymphocytes # (Manual) Monocytes # (Manual) Eosinophils # (Manual) Nucleated RBC % Basophils # (Manual) PT INR APTT Heparin Anti-Xa Level ABG pH POC ABG pO2 ABG pO2 ABG HCO3 ABG O2 Saturation ABG Base Excess POC ABG pCO2 ABG Hemoglobin ABG Oxyhemoglobin ABG Chloride ABG Glucose Oxyhemoglobin Sodium Potassium Chloride Carbon Dioxide BUN Creatinine Glucose POC Glucose 154 H 135 H 148 H Lactic Acid Calcium Phosphorus Magnesium AST ALT Lactate Dehydrogenase Total Bilirubin Direct Bilirubin CK-MB (CK-2) C-Reactive Protein NT-Pro-B Natriuret Pep Total Protein Albumin Arterial Blood Glucose Urine WBC (Auto) Urine Creatinine 02/16/20 02/16/20 02/16/20 07:53 11:28 17:52 WBC RBC Hgb Hct MCHC RDW MCV MCH Lymph % (Auto) [place] % (Auto) [place] # Eos # Lymph # (Auto) [place] # (Auto) Eos # (Auto) Seg Neutrophils % Seg Neuts % (Manual) Baso # (Auto) Lymphocytes % (Manual) Monocytes % (Manual) Eosinophils % (Manual) Basophils % (Manual) Seg Neutrophils # Seg Neutrophils # Man Lymphocytes # (Manual) Monocytes # (Manual) Eosinophils # (Manual) Nucleated RBC % Basophils # (Manual) PT INR APTT Heparin Anti-Xa Level ABG pH POC ABG pO2 ABG pO2 ABG HCO3 ABG O2 Saturation ABG Base Excess POC ABG pCO2 ABG Hemoglobin ABG Oxyhemoglobin ABG Chloride ABG Glucose Oxyhemoglobin Sodium Potassium Chloride 107.9 H Carbon Dioxide BUN 38 H Creatinine 0.6 L Glucose 151 H POC Glucose 123 H 152 H Lactic Acid Calcium Phosphorus Magnesium AST ALT Lactate Dehydrogenase Total Bilirubin Direct Bilirubin CK-MB (CK-2) C-Reactive Protein NT-Pro-B Natriuret Pep Total Protein Albumin Arterial Blood Glucose Urine WBC (Auto) Urine Creatinine 02/16/20 02/17/20 02/17/20 23:49 06:24 11:36 WBC RBC Hgb Hct MCHC RDW MCV MCH Lymph % (Auto) [place] % (Auto) [place] # Eos # Lymph # (Auto) [place] # (Auto) Eos # (Auto) Seg Neutrophils % Seg Neuts % (Manual) Baso # (Auto) Lymphocytes % (Manual) Monocytes % (Manual) Eosinophils % (Manual) Basophils % (Manual) Seg Neutrophils # Seg Neutrophils # Man Lymphocytes # (Manual) Monocytes # (Manual) Eosinophils # (Manual) Nucleated RBC % Basophils # (Manual) PT INR APTT Heparin Anti-Xa Level ABG pH POC ABG pO2 ABG pO2 ABG HCO3 ABG O2 Saturation ABG Base Excess POC ABG pCO2 ABG Hemoglobin ABG Oxyhemoglobin ABG Chloride ABG Glucose Oxyhemoglobin Sodium Potassium Chloride Carbon Dioxide BUN Creatinine Glucose POC Glucose 156 H 193 H 162 H Lactic Acid Calcium Phosphorus Magnesium AST ALT Lactate Dehydrogenase Total Bilirubin Direct Bilirubin CK-MB (CK-2) C-Reactive Protein NT-Pro-B Natriuret Pep Total Protein Albumin Arterial Blood Glucose Urine WBC (Auto) Urine Creatinine 02/17/20 02/17/20 02/18/20 17:55 23:28 05:11 WBC RBC Hgb Hct MCHC RDW MCV MCH Lymph % (Auto) Crawford % (Auto) Crawford # Eos # Lymph # (Auto) Crawford # (Auto) Eos # (Auto) Seg Neutrophils % Seg Neuts % (Manual) Baso # (Auto) Lymphocytes % (Manual) Monocytes % (Manual) Eosinophils % (Manual) Basophils % (Manual) Seg Neutrophils # Seg Neutrophils # Man Lymphocytes # (Manual) Monocytes # (Manual) Eosinophils # (Manual) Nucleated RBC % Basophils # (Manual) PT INR APTT Heparin Anti-Xa Level ABG pH POC ABG pO2 ABG pO2 ABG HCO3 ABG O2 Saturation ABG Base Excess POC ABG pCO2 ABG Hemoglobin ABG Oxyhemoglobin ABG Chloride ABG Glucose Oxyhemoglobin Sodium Potassium Chloride Carbon Dioxide BUN Creatinine Glucose POC Glucose 165 H 146 H 122 H Lactic Acid Calcium Phosphorus Magnesium AST ALT Lactate Dehydrogenase Total Bilirubin Direct Bilirubin CK-MB (CK-2) C-Reactive Protein NT-Pro-B Natriuret Pep Total Protein Albumin Arterial Blood Glucose Urine WBC (Auto) Urine Creatinine 02/18/20 02/18/20 02/19/20 12:24 17:29 00:01 WBC RBC Hgb Hct MCHC RDW MCV MCH Lymph % (Auto) [place] % (Auto) [place] # Eos # Lymph # (Auto) [place] # (Auto) Eos # (Auto) Seg Neutrophils % Seg Neuts % (Manual) Baso # (Auto) Lymphocytes % (Manual) Monocytes % (Manual) Eosinophils % (Manual) Basophils % (Manual) Seg Neutrophils # Seg Neutrophils # Man Lymphocytes # (Manual) Monocytes # (Manual) Eosinophils # (Manual) Nucleated RBC % Basophils # (Manual) PT INR APTT Heparin Anti-Xa Level ABG pH POC ABG pO2 ABG pO2 ABG HCO3 ABG O2 Saturation ABG Base Excess POC ABG pCO2 ABG Hemoglobin ABG Oxyhemoglobin ABG Chloride ABG Glucose Oxyhemoglobin Sodium Potassium Chloride Carbon Dioxide BUN Creatinine Glucose POC Glucose 162 H 136 H 145 H Lactic Acid Calcium Phosphorus Magnesium AST ALT Lactate Dehydrogenase Total Bilirubin Direct Bilirubin CK-MB (CK-2) C-Reactive Protein NT-Pro-B Natriuret Pep Total Protein Albumin Arterial Blood Glucose Urine WBC (Auto) Urine Creatinine 02/19/20 02/19/20 02/19/20 05:53 11:44 17:32 WBC RBC Hgb Hct MCHC RDW MCV MCH Lymph % (Auto) [place] % (Auto) [place] # Eos # Lymph # (Auto) [place] # (Auto) Eos # (Auto) Seg Neutrophils % Seg Neuts % (Manual) Baso # (Auto) Lymphocytes % (Manual) Monocytes % (Manual) Eosinophils % (Manual) Basophils % (Manual) Seg Neutrophils # Seg Neutrophils # Man Lymphocytes # (Manual) Monocytes # (Manual) Eosinophils # (Manual) Nucleated RBC % Basophils # (Manual) PT INR APTT Heparin Anti-Xa Level ABG pH POC ABG pO2 ABG pO2 ABG HCO3 ABG O2 Saturation ABG Base Excess POC ABG pCO2 ABG Hemoglobin ABG Oxyhemoglobin ABG Chloride ABG Glucose Oxyhemoglobin Sodium Potassium Chloride Carbon Dioxide BUN Creatinine Glucose POC Glucose 116 H 120 H 154 H Lactic Acid Calcium Phosphorus Magnesium AST ALT Lactate Dehydrogenase Total Bilirubin Direct Bilirubin CK-MB (CK-2) C-Reactive Protein NT-Pro-B Natriuret Pep Total Protein Albumin Arterial Blood Glucose Urine WBC (Auto) Urine Creatinine 02/19/20 02/20/20 02/20/20 23:43 00:24 00:24 WBC RBC Hgb 9.4 L Hct 30.0 L MCHC 31 L RDW 20.4 H MCV 79 L MCH 25 L Lymph % (Auto) [place] % (Auto) 8.5 H [place] # Eos # Lymph # (Auto) [place] # (Auto) Eos # (Auto) Seg Neutrophils % Seg Neuts % (Manual) Baso # (Auto) Lymphocytes % (Manual) Monocytes % (Manual) Eosinophils % (Manual) Basophils % (Manual) Seg Neutrophils # Seg Neutrophils # Man Lymphocytes # (Manual) Monocytes # (Manual) Eosinophils # (Manual) Nucleated RBC % Basophils # (Manual) PT INR APTT Heparin Anti-Xa Level ABG pH POC ABG pO2 ABG pO2 ABG HCO3 ABG O2 Saturation ABG Base Excess POC ABG pCO2 ABG Hemoglobin ABG Oxyhemoglobin ABG Chloride ABG Glucose Oxyhemoglobin Sodium 147 H Potassium 3.4 L Chloride Carbon Dioxide 31 H BUN 34 H Creatinine 0.5 L Glucose 135 H POC Glucose 122 H Lactic Acid Calcium Phosphorus Magnesium AST ALT Lactate Dehydrogenase Total Bilirubin Direct Bilirubin CK-MB (CK-2) C-Reactive Protein NT-Pro-B Natriuret Pep Total Protein Albumin Arterial Blood Glucose Urine WBC (Auto) Urine Creatinine 02/20/20 02/20/20 02/20/20 06:07 06:45 12:03 WBC RBC Hgb Hct MCHC RDW MCV MCH Lymph % (Auto) [place] % (Auto) [place] # Eos # Lymph # (Auto) [place] # (Auto) Eos # (Auto) Seg Neutrophils % Seg Neuts % (Manual) Baso # (Auto) Lymphocytes % (Manual) Monocytes % (Manual) Eosinophils % (Manual) Basophils % (Manual) Seg Neutrophils # Seg Neutrophils # Man Lymphocytes # (Manual) Monocytes # (Manual) Eosinophils # (Manual) Nucleated RBC % Basophils # (Manual) PT INR APTT Heparin Anti-Xa Level ABG pH 7.461 H POC ABG pO2 ABG pO2 ABG HCO3 33.3 H ABG O2 Saturation ABG Base Excess 8.4 H POC ABG pCO2 ABG Hemoglobin 10.0 L ABG Oxyhemoglobin ABG Chloride ABG Glucose Oxyhemoglobin 94.1 L Sodium Potassium Chloride Carbon Dioxide BUN Creatinine Glucose POC Glucose 109 H 128 H Lactic Acid Calcium Phosphorus Magnesium AST ALT Lactate Dehydrogenase Total Bilirubin Direct Bilirubin CK-MB (CK-2) C-Reactive Protein NT-Pro-B Natriuret Pep Total Protein Albumin Arterial Blood Glucose Urine WBC (Auto) Urine Creatinine 02/20/20 02/20/20 02/21/20 18:02 23:55 05:42 WBC RBC Hgb Hct MCHC RDW MCV MCH Lymph % (Auto) [place] % (Auto) [place] # Eos # Lymph # (Auto) [place] # (Auto) Eos # (Auto) Seg Neutrophils % Seg Neuts % (Manual) Baso # (Auto) Lymphocytes % (Manual) Monocytes % (Manual) Eosinophils % (Manual) Basophils % (Manual) Seg Neutrophils # Seg Neutrophils # Man Lymphocytes # (Manual) Monocytes # (Manual) Eosinophils # (Manual) Nucleated RBC % Basophils # (Manual) PT INR APTT Heparin Anti-Xa Level ABG pH POC ABG pO2 ABG pO2 ABG HCO3 ABG O2 Saturation ABG Base Excess POC ABG pCO2 ABG Hemoglobin ABG Oxyhemoglobin ABG Chloride ABG Glucose Oxyhemoglobin Sodium Potassium Chloride Carbon Dioxide BUN Creatinine Glucose POC Glucose 118 H 125 H 127 H Lactic Acid Calcium Phosphorus Magnesium AST ALT Lactate Dehydrogenase Total Bilirubin Direct Bilirubin CK-MB (CK-2) C-Reactive Protein NT-Pro-B Natriuret Pep Total Protein Albumin Arterial Blood Glucose Urine WBC (Auto) Urine Creatinine 02/21/20 02/21/20 02/21/20 12:10 17:35 23:40 WBC RBC Hgb Hct MCHC RDW MCV MCH Lymph % (Auto) [place] % (Auto) [place] # Eos # Lymph # (Auto) [place] # (Auto) Eos # (Auto) Seg Neutrophils % Seg Neuts % (Manual) Baso # (Auto) Lymphocytes % (Manual) Monocytes % (Manual) Eosinophils % (Manual) Basophils % (Manual) Seg Neutrophils # Seg Neutrophils # Man Lymphocytes # (Manual) Monocytes # (Manual) Eosinophils # (Manual) Nucleated RBC % Basophils # (Manual) PT INR APTT Heparin Anti-Xa Level ABG pH POC ABG pO2 ABG pO2 ABG HCO3 ABG O2 Saturation ABG Base Excess POC ABG pCO2 ABG Hemoglobin ABG Oxyhemoglobin ABG Chloride ABG Glucose Oxyhemoglobin Sodium Potassium Chloride Carbon Dioxide BUN Creatinine Glucose POC Glucose 128 H 113 H 125 H Lactic Acid Calcium Phosphorus Magnesium AST ALT Lactate Dehydrogenase Total Bilirubin Direct Bilirubin CK-MB (CK-2) C-Reactive Protein NT-Pro-B Natriuret Pep Total Protein Albumin Arterial Blood Glucose Urine WBC (Auto) Urine Creatinine 02/22/20 02/22/20 02/22/20 05:57 08:06 08:06 WBC RBC Hgb 10.8 L Hct 35.2 L MCHC 31 L RDW 21.8 H MCV 80 L MCH 25 L Lymph % (Auto) [place] % (Auto) [place] # Eos # Lymph # (Auto) [place] # (Auto) Eos # (Auto) Seg Neutrophils % 71.5 H Seg Neuts % (Manual) Baso # (Auto) Lymphocytes % (Manual) Monocytes % (Manual) Eosinophils % (Manual) Basophils % (Manual) Seg Neutrophils # Seg Neutrophils # Man Lymphocytes # (Manual) Monocytes # (Manual) Eosinophils # (Manual) Nucleated RBC % Basophils # (Manual) PT INR APTT Heparin Anti-Xa Level ABG pH POC ABG pO2 ABG pO2 ABG HCO3 ABG O2 Saturation ABG Base Excess POC ABG pCO2 ABG Hemoglobin ABG Oxyhemoglobin ABG Chloride ABG Glucose Oxyhemoglobin Sodium 146 H Potassium Chloride Carbon Dioxide 34 H BUN 21 H Creatinine 0.4 L Glucose 149 H POC Glucose 138 H Lactic Acid Calcium Phosphorus Magnesium AST ALT Lactate Dehydrogenase Total Bilirubin Direct Bilirubin CK-MB (CK-2) C-Reactive Protein NT-Pro-B Natriuret Pep Total Protein Albumin Arterial Blood Glucose Urine WBC (Auto) Urine Creatinine 02/22/20 02/22/20 02/22/20 11:47 17:11 23:25 WBC RBC Hgb Hct MCHC RDW MCV MCH Lymph % (Auto) [place] % (Auto) [place] # Eos # Lymph # (Auto) [place] # (Auto) Eos # (Auto) Seg Neutrophils % Seg Neuts % (Manual) Baso # (Auto) Lymphocytes % (Manual) Monocytes % (Manual) Eosinophils % (Manual) Basophils % (Manual) Seg Neutrophils # Seg Neutrophils # Man Lymphocytes # (Manual) Monocytes # (Manual) Eosinophils # (Manual) Nucleated RBC % Basophils # (Manual) PT INR APTT Heparin Anti-Xa Level ABG pH POC ABG pO2 ABG pO2 ABG HCO3 ABG O2 Saturation ABG Base Excess POC ABG pCO2 ABG Hemoglobin ABG Oxyhemoglobin ABG Chloride ABG Glucose Oxyhemoglobin Sodium Potassium Chloride Carbon Dioxide BUN Creatinine Glucose POC Glucose 149 H 144 H 142 H Lactic Acid Calcium Phosphorus Magnesium AST ALT Lactate Dehydrogenase Total Bilirubin Direct Bilirubin CK-MB (CK-2) C-Reactive Protein NT-Pro-B Natriuret Pep Total Protein Albumin Arterial Blood Glucose Urine WBC (Auto) Urine Creatinine 02/23/20 02/23/20 02/23/20 05:22 11:37 18:14 WBC RBC Hgb Hct MCHC RDW MCV MCH Lymph % (Auto) [place] % (Auto) [place] # Eos # Lymph # (Auto) [place] # (Auto) Eos # (Auto) Seg Neutrophils % Seg Neuts % (Manual) Baso # (Auto) Lymphocytes % (Manual) Monocytes % (Manual) Eosinophils % (Manual) Basophils % (Manual) Seg Neutrophils # Seg Neutrophils # Man Lymphocytes # (Manual) Monocytes # (Manual) Eosinophils # (Manual) Nucleated RBC % Basophils # (Manual) PT INR APTT Heparin Anti-Xa Level ABG pH POC ABG pO2 ABG pO2 ABG HCO3 ABG O2 Saturation ABG Base Excess POC ABG pCO2 ABG Hemoglobin ABG Oxyhemoglobin ABG Chloride ABG Glucose Oxyhemoglobin Sodium Potassium Chloride Carbon Dioxide BUN Creatinine Glucose POC Glucose 144 H 113 H 127 H Lactic Acid Calcium Phosphorus Magnesium AST ALT Lactate Dehydrogenase Total Bilirubin Direct Bilirubin CK-MB (CK-2) C-Reactive Protein NT-Pro-B Natriuret Pep Total Protein Albumin Arterial Blood Glucose Urine WBC (Auto) Urine Creatinine 02/23/20 02/24/20 02/24/20 23:45 05:50 11:24 WBC RBC Hgb Hct MCHC RDW MCV MCH Lymph % (Auto) [place] % (Auto) [place] # Eos # Lymph # (Auto) [place] # (Auto) Eos # (Auto) Seg Neutrophils % Seg Neuts % (Manual) Baso # (Auto) Lymphocytes % (Manual) Monocytes % (Manual) Eosinophils % (Manual) Basophils % (Manual) Seg Neutrophils # Seg Neutrophils # Man Lymphocytes # (Manual) Monocytes # (Manual) Eosinophils # (Manual) Nucleated RBC % Basophils # (Manual) PT INR APTT Heparin Anti-Xa Level ABG pH POC ABG pO2 ABG pO2 ABG HCO3 ABG O2 Saturation ABG Base Excess POC ABG pCO2 ABG Hemoglobin ABG Oxyhemoglobin ABG Chloride ABG Glucose Oxyhemoglobin Sodium Potassium Chloride Carbon Dioxide BUN Creatinine Glucose POC Glucose 123 H 117 H 126 H Lactic Acid Calcium Phosphorus Magnesium AST ALT Lactate Dehydrogenase Total Bilirubin Direct Bilirubin CK-MB (CK-2) C-Reactive Protein NT-Pro-B Natriuret Pep Total Protein Albumin Arterial Blood Glucose Urine WBC (Auto) Urine Creatinine 02/24/20 02/24/20 02/25/20 18:35 23:27 05:20 WBC RBC Hgb Hct MCHC RDW MCV MCH Lymph % (Auto) [place] % (Auto) [place] # Eos # Lymph # (Auto) [place] # (Auto) Eos # (Auto) Seg Neutrophils % Seg Neuts % (Manual) Baso # (Auto) Lymphocytes % (Manual) Monocytes % (Manual) Eosinophils % (Manual) Basophils % (Manual) Seg Neutrophils # Seg Neutrophils # Man Lymphocytes # (Manual) Monocytes # (Manual) Eosinophils # (Manual) Nucleated RBC % Basophils # (Manual) PT INR APTT Heparin Anti-Xa Level ABG pH POC ABG pO2 ABG pO2 ABG HCO3 ABG O2 Saturation ABG Base Excess POC ABG pCO2 ABG Hemoglobin ABG Oxyhemoglobin ABG Chloride ABG Glucose Oxyhemoglobin Sodium Potassium Chloride Carbon Dioxide BUN Creatinine Glucose POC Glucose 121 H 127 H 133 H Lactic Acid Calcium Phosphorus Magnesium AST ALT Lactate Dehydrogenase Total Bilirubin Direct Bilirubin CK-MB (CK-2) C-Reactive Protein NT-Pro-B Natriuret Pep Total Protein Albumin Arterial Blood Glucose Urine WBC (Auto) Urine Creatinine 02/25/20 02/25/20 02/25/20 12:08 17:26 23:33 WBC RBC Hgb Hct MCHC RDW MCV MCH Lymph % (Auto) [place] % (Auto) [place] # Eos # Lymph # (Auto) [place] # (Auto) Eos # (Auto) Seg Neutrophils % Seg Neuts % (Manual) Baso # (Auto) Lymphocytes % (Manual) Monocytes % (Manual) Eosinophils % (Manual) Basophils % (Manual) Seg Neutrophils # Seg Neutrophils # Man Lymphocytes # (Manual) Monocytes # (Manual) Eosinophils # (Manual) Nucleated RBC % Basophils # (Manual) PT INR APTT Heparin Anti-Xa Level ABG pH POC ABG pO2 ABG pO2 ABG HCO3 ABG O2 Saturation ABG Base Excess POC ABG pCO2 ABG Hemoglobin ABG Oxyhemoglobin ABG Chloride ABG Glucose Oxyhemoglobin Sodium Potassium Chloride Carbon Dioxide BUN Creatinine Glucose POC Glucose 109 H 120 H 120 H Lactic Acid Calcium Phosphorus Magnesium AST ALT Lactate Dehydrogenase Total Bilirubin Direct Bilirubin CK-MB (CK-2) C-Reactive Protein NT-Pro-B Natriuret Pep Total Protein Albumin Arterial Blood Glucose Urine WBC (Auto) Urine Creatinine 02/26/20 02/26/20 05:33 07:50 WBC RBC Hgb Hct MCHC RDW MCV MCH Lymph % (Auto) [place] % (Auto) [place] # Eos # Lymph # (Auto) [place] # (Auto) Eos # (Auto) Seg Neutrophils % Seg Neuts % (Manual) Baso # (Auto) Lymphocytes % (Manual) Monocytes % (Manual) Eosinophils % (Manual) Basophils % (Manual) Seg Neutrophils # Seg Neutrophils # Man Lymphocytes # (Manual) Monocytes # (Manual) Eosinophils # (Manual) Nucleated RBC % Basophils # (Manual) PT INR APTT Heparin Anti-Xa Level ABG pH POC ABG pO2 ABG pO2 ABG HCO3 ABG O2 Saturation ABG Base Excess POC ABG pCO2 ABG Hemoglobin ABG Oxyhemoglobin ABG Chloride ABG Glucose Oxyhemoglobin Sodium Potassium Chloride Carbon Dioxide BUN Creatinine Glucose POC Glucose 106 H Lactic Acid Calcium Phosphorus Magnesium AST ALT Lactate Dehydrogenase Total Bilirubin Direct Bilirubin CK-MB (CK-2) C-Reactive Protein NT-Pro-B Natriuret Pep Total Protein Albumin Arterial Blood Glucose Urine WBC (Auto) > 182.0 H Urine Creatinine Chest x-ray: other (none today) Allied health notes reviewed: nursing
--- NOTE | 2020-02-26 16:03 | Progress Note ---
Assessment and Plan Assessment and plan: --Ischemic cardiomyopathy Cardiology is following, status post cardiac catheterization on 01/22/2020; C oronary artery disease status post PCI and stent to the LAD Continue current cardiac medications --Acute on chronic hypoxemic respiratory failure; Patient has tracheostomy on vent Continue nebulizers, , trach care Wean off ventilator as tolerated Pulmonary critical following --Acute exacerbation of COPD; Patient is currently on ventilatory support Continue nebulizers --Left lower lobe PE; Continue Eliquis, ventilatory support --Acute right lower extremity DVT; Patient is on Eliquis --Bilateral multifocal pneumonia/community-acquired Completed antibiotics, improved --Severe sepsis/bilateral pneumonia: Completed antibiotics COVID-19 test; 11/24/2019; negative 11/26/2019; negative 12/29/2019: Negative --Paroxysmal atrial fibrillation; Now rate controlled, Stable on amiodarone and Eliquis --Acute on chronic combined systolic and diastolic congestive heart failure Ischemic cardiomyopathy left ventricular ejection fraction 40 to 45% --H/o CAD [[facility] 12/2018 in-stent restenosis] Patient is stable on current cardiac medications --Hypertensive emergency; present on admission Reasonable blood pressures, continue current antihypertensives As needed medications --History of alcohol abuse/alcohol withdrawal; Was on CIWA protocol, now stable --Oropharyngeal dysphagia; status post PEG placement Continue PEG feeds per protocol --History of partial small bowel obstruction; resolved Surgery evaluated. --Obesity; BMI 34.7 Patient needs weight reduction when medically stable --Severe protein calorie malnutrition/hypoalbuminemia Nutrition supplements, dietitian following, PEG feeds --DVT prophylaxis;Eliquis --Full CODE STATUS 01/05; Pt stable. NGT output 650cc over 24 hours, bilious. No f/c, WBC within normal limits. cont NG suction and cont to hold TF 01/06: Abs series - mild improvement in small bowel distension in mid abdomen, normal gas/stool pattern in colon. NGT in duodenum. Continue to hold tube feeding, maintain NG tube with low intermittent suction. Patient's was updated by phone. Continue to provide supportive care and monitor clinically. 01/07: +BMs today and NGT/PEG output appears more gastric today. Plan to clamp NGT, if tolerates start TF from tomorrow. cont supportive care. 01/08; Gastric output decreased over last 24 hours. NGT has been clamped x 24 hours. plan to dc NGT and to start TTF via PEG - vital HF @10cc/hr 01/09: clinically stable, tolerating TF. monitor BMP, wean off from vent as tolerated clinically stable, on TF. wean off vent as tolerated 01/11: wean off from vent, cont to monitor, on TF 01/12: wean off from vent, cont to monitor, on TF. need placement - unfunded 01/13; remains on ventilatory support, unable to wean, DC planning possible LTAC, unfunded 01/14; patient of ventilatory support, T-piece tracheostomy on oxygen, LTAC placement per case management 01/16; tracheostomy, patient on full ventilatory support, wean off vent support as tolerated, pending LTAC placement, social financial issues 01/17; awaiting LTAC placement, insurance and financial issues 01/18; patient tracheostomy remains on ventilatory support 01/19; wean off ventilator as tolerated 01/20; remains on ventilatory support, patient complains of intermittent chest pain, cardiology recommend left heart catheterization tomorrow 01/22/2020. Patient for left heart catheterization per cardiology. Patient remains on AC mode ventilation rate 12, tidal volume 450, FiO2 30% and PEEP of 6. Continue tracheostomy care, airway management and secretion control. 01/23/2020. Cardiac catheterization completed yesterday revealed widely patent previous LAD stent with mild nonobstructive atherosclerosis of the right mid coronary artery and rest of the coronary system was without significant atherosclerosis. The left ventricle ejection fraction was mildly impaired at 40 to 45%. There was some hypokinesis of the basal inferior wall suggestive of previous or recent infarct. Continue GDMT for coronary artery disease including beta blockers, topical nitrates, statin and Plavix. Continue Eliquis for paroxysmal atrial fibrillation and PE. Continue diuresis with Lasix and follow electrolytes closely. Continue Robinul and scopolamine for secretion control and daily SBT per pulmonary. Also, continue bronchodilators and routine trach care/airway management. T-piece trials per pulmonary as tolerated. 01/24/2020. Recent cardiac catheterization has documented widely patent left anterior descending artery stent with minimal nonobstructive diffuse coronary artery disease in the rest of the coronary arteries. Evidence of ischemic cardiomyopathy with inferior wall hypokinesis. Continue with guideline directed medical therapy. Continue Robinul and scopolamine for secretion control and daily SBT per pulmonary. Continue bronchodilators and routine trach care/airway management. T-piece trials per pulmonary as tolerated. 01/25/2020. Continue with guideline directed medical therapy for systolic heart failure. Cardiac catheterization revealed evidence of ischemic cardiomyopathy with inferior wall hypokinesis (EF 40-45%). Patient currently on T-piece with oxygen 10 L/min FiO2 40%. Continue Robinul and scopolamine for secretion control. Continue bronchodilators and routine trach care/airway management. 02/03: Mental status more improved, agree with Reglan will change to IV scheduled for two days, no new vomiting. Pseudomonas A in Sputum. 02/04: Clinical improving, amiodarone discontinued due to LFTs, continue Metoprolol.d/w GI, started on Golytely to clear impaction. Started on dialy Miralax. 02/05: Continue supportive care. Noted bowel movement, continue bowel regimen 02/06: Cardiology input noted beta-hebert increased for better suppression of atrial fibrillation. Continue to monitor, no other evidence of nausea vomiting noted. Discussed with respiratory therapist will be continued on weaning protocol with pressure support today. 02/07: Patient successfully weaned off the ventilator, No new complaints, continue monitoring, BM noted, Discussed with pulmonary, 02/08; tracheostomy on T-piece, patient is more alert and awake today 02/09; clinically no change, tracheostomy on vent 02/10; tracheostomy on vent, full CODE STATUS, poor prognosis, 02/11; clinically no change, remains on ventilatory support, full CODE STATUS, discussed with spouse Ms. Paulette Araiza extensively today 02/12. Patient resting comfortably no change on vent with tracheostomy. Still unable to wean. Some increased crackles today. 02/13: Still unable to wean from the vent. Overall prognosis remains extremely poor. 02/14; remains critically ill, tracheostomy on vent, unable to wean, poor prognosis, full CODE STATUS 02/15; patient is more alert and awake today, chronic tracheostomy on T-piece, continue current management DC planning per case management. Disposition very difficult due to lack of resources and insurance 02/17/2020. Patient remains on mechanical ventilation and tolerating PSV trials. Patient currently with PSV 10/6 at FiO2 of 30%. 02/18/2020. Patient currently on PSV 10/6 with FiO2 of 40%. 40% T-piece trial was attempted but patient unable to tolerate due to saturations dropping into the 80s and heart rate in the 140s. Therefore, patient placed back on PSV. Continue anticoagulation with Eliquis. Continue secretion control with Robinul and scopolamine. Continue rate control with metoprolol and digoxin. 02/19/2020. Patient currently on PSV 10/6 with FiO2 of 30%. T-piece trial attempted yesterday but patient did not tolerate. Continue T-piece trials as tolerated. Continue anticoagulation with Eliquis. Continue secretion control with Robinul and scopolamine. Continue rate control with metoprolol and digoxin. Continue to follow with case management with regards to discharge p lizette. 02/20/2020. Patient continues to tolerate PSV 10/6. Continue rate control with metoprolol and digoxin. Amiodarone discontinued due to elevated liver transaminases. Eliquis for anticoagulation acute PE/DVT. 02/21/2020. Patient continues to tolerate PSV 10/6 at FiO2 of 30%. Continue r ate control with metoprolol and digoxin. Amiodarone discontinued due to elevated liver transaminases. Eliquis for anticoagulation acute PE/DVT. 02/22/2020. Patient continues to tolerate PSV 10/6 at FiO2 of 30%. Continue rate control with metoprolol and digoxin. Amiodarone discontinued due to e levated liver transaminases. Eliquis for anticoagulation acute PE/DVT. 02/22. Awake and alert on vent. Vitals stable. 02/23. Awake and alert on vent. Requests for ice. Vitals stable 02/24. Trach to vent. Continue rate control with metoprolol and digoxin. Amiodarone discontinued due to elevated liver transaminases. Eliquis for anticoagulation of acute PE/DVT. Transferred to [facility] 02/25. Seen in [facility]. Requests for ice. RN to provide a cube of ice. Vitals stable. The high probability of a clinically significant, sudden or life threatening deterioration of the [Respiratory, cardiovascular & neurological] system(s) required my full and direct attention, intervention and personal management. The aggregate critical care time was [32] minutes without overlap. Time includes spent on [x] Data Review and interpretation [x] Patient assessment and monitoring of vital signs [x] Documentation [x] Medication orders and management History Interval history: Patient seen and examined at bedside this morning. He is asking for ice. As per RN patient had vomited yesterday Hospitalist Physical - Physical exam Narrative exam: VITAL SIGNS: Reviewed. GENERAL: Awake on vent HEAD: No signs of head trauma. EYES: Pupils are equal. Extraocular motions intact. EARS: Hearing grossly intact. MOUTH: Oropharynx is normal. NECK: No adenopathy, no JVD. Trach in place CHEST: Chest with diminished breath sounds bilaterally. No wheezes, rales, or rhonchi. CARDIAC: Regular rate and rhythm. S1 and S2, without murmurs, gallops, or rubs. VASCULAR: +Edema. Peripheral pulses normal and equal in all extremities. ABDOMEN: Soft, non tender and non distended. No rebound or guarding, and no masses palpated. Bowel Sounds normal. MUSCULOSKELETAL: Good range of motion of all major joints. NEUROLOGIC EXAM: Alert and oriented x3. No focal neurologic deficits PSYCHIATRIC: Stable mood SKIN: No obvious lesions - Constitutional Vitals: Temp Pulse Resp BP Pulse Ox 98.0 F 105 H 23 100/73 96 02/26/20 12:00 02/26/20 15:00 02/26/20 15:00 02/26/20 15:00 02/26/20 15:00 HEART Score - HEART Score Troponin: Troponin T < 0.010 ng/mL (0.00-0.029) 01/19/20 01:35 Results - Labs CBC & Chem 7: 02/22/20 08:06 02/22/20 08:06 Labs: Laboratory Last Values WBC 9.2 K/mm3 (4.5-11.0) 02/22/20 08:06 RBC 4.42 M/mm3 (3.65-5.03) 02/22/20 08:06 Hgb 10.8 gm/dl (11.8-15.2) L 02/22/20 08:06 Hct 35.2 % (35.5-45.6) L 02/22/20 08:06 MCV 80 fl (84-94) L 02/22/20 08:06 MCH 25 pg (28-32) L 02/22/20 08:06 MCHC 31 % (32-34) L 02/22/20 08:06 RDW 21.8 % (13.2-15.2) H 02/22/20 08:06 Plt Count 216 K/mm3 (140-440) 02/22/20 08:06 Lymph % (Auto) 19.0 % (13.4-35.0) 02/22/20 08:06 [place] % (Auto) 6.5 % (0.0-7.3) 02/22/20 08:06 Eos % (Auto) 2.1 % (0.0-4.3) 02/22/20 08:06 Baso % (Auto) 0.9 % (0.0-1.8) 02/22/20 08:06 Lymph # (Auto) 1.8 K/mm3 (1.2-5.4) 02/22/20 08:06 [place] # (Auto) 0.6 K/mm3 (0.0-0.8) 02/22/20 08:06 Eos # (Auto) 0.2 K/mm3 (0.0-0.4) 02/22/20 08:06 Baso # (Auto) 0.1 K/mm3 (0.0-0.1) 02/22/20 08:06 Add Manual Diff Complete 02/15/20 06:59 Total Counted 100 02/15/20 06:59 Seg Neutrophils % 71.5 % (40.0-70.0) H 02/22/20 08:06 Seg Neuts % (Manual) 58.0 % (40.0-70.0) 02/15/20 06:59 Band Neutrophils % 0 % 02/15/20 06:59 Lymphocytes % (Manual) 34.0 % (13.4-35.0) 02/15/20 06:59 Reactive Lymphs % (Man) 1.0 % 02/15/20 06:59 Monocytes % (Manual) 4.0 % (0.0-7.3) 02/15/20 06:59 Eosinophils % (Manual) 0 % (0.0-4.3) 02/15/20 06:59 Basophils % (Manual) 2.0 % (0.0-1.8) H 02/15/20 06:59 Metamyelocytes % 1.0 % 02/15/20 06:59 Myelocytes % 0 % 02/15/20 06:59 Promyelocytes % 0 % 02/15/20 06:59 Blast Cells % 0 % 02/15/20 06:59 Nucleated RBC % 1.0 % (0.0-0.9) H 02/15/20 06:59 Seg Neutrophils # 6.6 K/mm3 (1.8-7.7) 02/22/20 08:06 Seg Neutrophils # Man 5.9 K/mm3 (1.8-7.7) 02/15/20 06:59 Band Neutrophils # 0.0 K/mm3 02/15/20 06:59 Lymphocytes # (Manual) 3.5 K/mm3 (1.2-5.4) 02/15/20 06:59 Abs React Lymphs (Man) 0.1 K/mm3 02/15/20 06:59 Monocytes # (Manual) 0.4 K/mm3 (0.0-0.8) 02/15/20 06:59 Eosinophils # (Manual) 0.0 K/mm3 (0.0-0.4) 02/15/20 06:59 Basophils # (Manual) 0.2 K/mm3 (0.0-0.1) H 02/15/20 06:59 Metamyelocytes # 0.1 K/mm3 02/15/20 06:59 Myelocytes # 0.0 K/mm3 02/15/20 06:59 Promyelocytes # 0.0 K/mm3 02/15/20 06:59 Blast Cells # 0.0 K/mm3 02/15/20 06:59 WBC Morphology Not Reportable 02/15/20 06:59 Hypersegmented Neuts Not Reportable 02/15/20 06:59 Hyposegmented Neuts Not Reportable 02/15/20 06:59 Hypogranular Neuts Not Reportable 02/15/20 06:59 Smudge Cells Not Reportable 02/15/20 06:59 Toxic Granulation Not Reportable 02/15/20 06:59 Toxic Vacuolation Not Reportable 02/15/20 06:59 Dohle Bodies Not Reportable 02/15/20 06:59 Pelger-Huet Anomaly Not Reportable 02/15/20 06:59 Hector Rods Not Reportable 02/15/20 06:59 Platelet Estimate Consistent w auto 02/15/20 06:59 Clumped Platelets Not Reportable 02/15/20 06:59 Plt Clumps, EDTA Not Reportable 02/15/20 06:59 Large Platelets Not Reportable 02/15/20 06:59 Giant Platelets Not Reportable 02/15/20 06:59 Platelet Satelliting Not Reportable 02/15/20 06:59 Plt Morphology Comment Giant platelets 02/15/20 06:59 RBC Morphology Not Reportable 02/15/20 06:59 Dimorphic RBCs Not Reportable 02/15/20 06:59 Polychromasia Not Reportable 02/15/20 06:59 Hypochromasia 1+ 02/15/20 06:59 Poikilocytosis Few 02/15/20 06:59 Anisocytosis 1+ 02/15/20 06:59 Microcytosis Not Reportable 02/15/20 06:59 Macrocytosis Not Reportable 02/15/20 06:59 Spherocytes Not Reportable 02/15/20 06:59 Pappenheimer Bodies Not Reportable 02/15/20 06:59 Sickle Cells Not Reportable 02/15/20 06:59 Target Cells 1+ 02/15/20 06:59 Tear Drop Cells Few 02/15/20 06:59 Ovalocytes Not Reportable 02/15/20 06:59 Helmet Cells Not Reportable 02/15/20 06:59 [place] Bodies Not Reportable 02/15/20 06:59 [place] Rings Not Reportable 02/15/20 06:59 [place] Cells Not Reportable 02/15/20 06:59 Bite Cells Not Reportable 02/15/20 06:59 Crenated Cell Not Reportable 02/15/20 06:59 Elliptocytes Few 02/15/20 06:59 Acanthocytes (Spur) Not Reportable 02/15/20 06:59 Rouleaux Not Reportable 02/15/20 06:59 Hemoglobin C Crystals Not Reportable 02/15/20 06:59 Schistocytes Not Reportable 02/15/20 06:59 Malaria parasites Not Reportable 02/15/20 06:59 Clifford Bodies Not Reportable 02/15/20 06:59 Hem Pathologist Commnt No 02/15/20 06:59 PT 27.0 Sec. (12.2-14.9) H 02/07/20 15:03 INR 2.46 (0.87-1.13) H 02/07/20 15:03 APTT 31.5 Sec. (24.2-36.6) 01/22/20 09:58 Heparin Anti-Xa Level 1.34 U.I./ml (0.3-0.7) H 01/22/20 04:45 ABG pH 7.461 pH Units (7.350-7.450) H 02/20/20 06:45 POC ABG pCO2 34.8 mmHg (32.0-48.0) 02/11/20 14:11 ABG pCO2 47.8 mm Hg 02/20/20 06:45 POC ABG pO2 77.7 mmHg (83-108) L 02/11/20 14:11 ABG pO2 88.7 mm Hg (80.0-90.0) 02/20/20 06:45 POC ABG HCO3 26.7 02/11/20 14:11 ABG HCO3 33.3 mmol/L (20.0-26.0) H 02/20/20 06:45 ABG O2 Saturation 97.2 % (95.0-99.0) 02/20/20 06:45 ABG O2 Content 13.3 (0.0-44) 02/20/20 06:45 POC ABG Base Excess 3.6 02/11/20 14:11 ABG Base Excess 8.4 mmol/L (-2.0-3.0) H 02/20/20 06:45 ABG Hemoglobin 10.0 gm/dl (14.0-18.0) L 02/20/20 06:45 ABG Oxyhemoglobin 84 (94-98) L 12/22/19 03:22 ABG Carboxyhemoglobin 2.9 % (0.0-5.0) 02/20/20 06:45 ABG Methemoglobin 0.4 % (0.0-1.5) 02/20/20 06:45 ABG Sodium 144.7 mmol/L (136.0-145.0) 02/11/20 14:11 ABG Potassium 3.5 mmol/L (3.40-4.50) 02/11/20 14:11 ABG Chloride 108.0 mmol/L (98-107) H 02/11/20 14:11 ABG Glucose 151 mg/dL (65-95) H 02/11/20 14:11 Oxyhemoglobin 94.1 % (95.0-99.0) L 02/20/20 06:45 Carboxyhemoglobin 0.7 (0.5-1.5) 12/22/19 03:22 FiO2 30 % 02/20/20 06:45 Sodium 146 mmol/L (137-145) H 02/22/20 08:06 Potassium 3.7 mmol/L (3.6-5.0) 02/22/20 08:06 Chloride 106.1 mmol/L (98-107) 02/22/20 08:06 Carbon Dioxide 34 mmol/L (22-30) H 02/22/20 08:06 Anion Gap 10 mmol/L 02/22/20 08:06 BUN 21 mg/dL (9-20) H 02/22/20 08:06 Creatinine 0.4 mg/dL (0.8-1.3) L 02/22/20 08:06 Estimated GFR > 60 ml/min 02/22/20 08:06 BUN/Creatinine Ratio 53 % 02/22/20 08:06 Glucose 149 mg/dL (75-100) H 02/22/20 08:06 POC Glucose 88 mg/dL (70-105) 02/26/20 12:00 Lactic Acid 1.60 mmol/L (0.7-2.0) 02/03/20 12:49 Calcium 9.5 mg/dL (8.4-10.2) 02/22/20 08:06 Ferritin 84.4 ng/mL (30.0-300.0) 11/24/19 04:53 Phosphorus 4.10 mg/dL (2.5-4.5) 01/31/20 19:24 Magnesium 2.40 mg/dL (1.7-2.3) H 02/10/20 07:40 Total Bilirubin 1.30 mg/dL (0.1-1.2) H 02/08/20 19:00 Direct Bilirubin 0.9 mg/dL (0-0.2) H 02/08/20 19:00 Indirect Bilirubin 0.4 mg/dL 02/08/20 19:00 Total Creatine Kinase 141 units/L (55-170) 11/24/19 02:53 CK-MB (CK-2) 4.3 ng/mL (0.0-4.0) H 11/24/19 02:53 AST 309 units/L (5-40) H 02/08/20 19:00 ALT 650 units/L (7-56) H 02/08/20 19:00 CK-MB (CK-2) Rel Index 3.0 (0-4) 11/24/19 02:53 Alkaline Phosphatase 109 units/L (35-129) 02/08/20 19:00 C-Reactive Protein 8.50 mg/dL (0.00-1.30) H 12/01/19 12:16 Ammonia 35.0 umol/L (25-60) 02/03/20 12:49 Lactate Dehydrogenase 228 units/L (91-180) H 12/19/19 04:45 Troponin T < 0.010 ng/mL (0.00-0.029) 01/19/20 01:35 NT-Pro-B Natriuret Pep 3866 pg/mL (0-900) H 01/01/20 10:40 Total Protein 6.2 g/dL (6.3-8.2) L 02/08/20 19:00 Albumin 2.7 g/dL (3.9-5) L 02/08/20 19:00 Albumin/Globulin Ratio 0.8 % 02/08/20 19:00 Procalcitonin 0.44 ng/mL (<0.15) 02/03/20 12:49 Arterial Blood Glucose 151 mg/dL (65-95) H 02/11/20 14:11 Arterial Blood Ionized Calcium 4.7 mg/dL (4.6-5.3) 02/11/20 14:11 Urine Color Cecy (Yellow) 02/26/20 07:50 Urine Turbidity Clear (Clear) 02/26/20 07:50 Urine pH 5.0 (5.0-7.0) 02/26/20 07:50 Ur Specific [place] 1.025 (1.003-1.030) 02/26/20 07:50 Urine Protein 30 mg/dl mg/dL (Negative) 02/26/20 07:50 Urine Glucose (UA) Neg mg/dL (Negative) 02/26/20 07:50 Urine Ketones Neg mg/dL (Negative) 02/26/20 07:50 Urine Blood Sm (Negative) 02/26/20 07:50 Urine Nitrite Neg (Negative) 02/26/20 07:50 Urine Bilirubin Neg (Negative) 02/26/20 07:50 Urine Urobilinogen 4.0 mg/dL (<2.0) 02/26/20 07:50 Ur Leukocyte Esterase Lg (Negative) 02/26/20 07:50 Urine WBC (Auto) > 182.0 /HPF (0.0-6.0) H 02/26/20 07:50 Urine RBC (Auto) 84.0 /HPF (0.0-6.0) 02/26/20 07:50 U Epithel Cells (Auto) 2.0 /HPF (0-13.0) 12/31/19 18:04 Urine Bacteria (Auto) 4+ /HPF (Negative) 02/26/20 07:50 Urine WBC Clumps 2+ /HPF 02/26/20 07:50 Urine Mucus 1+ /HPF 02/26/20 07:50 Urine Creatinine 57.4 mg/dL (0.1-20.0) H 01/31/20 Unknown Urine Sodium 59 mmol/L 01/31/20 Unknown Vancomycin Trough 14.2 ug/mL (5.0-20.0) 12/13/19 15:01 Coronavirus (PCR) Negative (Negative) 12/29/19 10:07 Hepatitis A IgM Ab Non-reactive (NonReactive) 02/05/20 06:37 Hep Bs Antigen Non-reactive (Negative) 02/05/20 06:37 Hep B Core IgM Ab Non-reactive (NonReactive) 02/05/20 06:37 Hepatitis C Antibody Non-reactive (NonReactive) 02/05/20 06:37 Blood Type O POSITIVE 01/21/20 13:00 Antibody Screen Negative 01/21/20 13:00 - Diagnostic Impressions Diagnostic Impressions: Echocardiogram 11/29/19 07:37 Transthoracic Echocardiogram Indication: CHF BP: 116/72 HR: 33 Conclusions *The study is technically limited due to poor acoustic windows. *Global left ventricular systolic function is normal. *The estimated ejection fraction is 50-55%. *Mild concentric left ventricular hypertrophy is observed. *There is trace of mitral regurgitation. *There is mild tricuspid regurgitation. Findings Procedure Info: The study quality is poor. The study is technically limited due to poor acoustic windows. The study is technically limited due to patient body habitus. Left Ventricle: The left ventricular chamber size is normal. Mild concentric left ventricular hypertrophy is observed. Global left ventricular systolic function is normal. The estimated ejection fraction is 50-55%. Left Atrium: The left atrial chamber size is normal. Right Ventricle: The right ventricular cavity size is normal. Right Atrium: The right atrial cavity size is normal. Aortic Valve: The aortic valve leaflets are moderately thickened. There is trace of aortic regurgitation. There is no evidence of aortic stenosis. Mitral Valve: The mitral valve leaflets are mildly thickened. There is trace of mitral regurgitation. There is no evidence of mitral stenosis. Tricuspid Valve: There is mild tricuspid regurgitation. No pulmonary hypertension is noted. Pulmonic Valve: There is trace pulmonic regurgitation. Pericardium: There is no pericardial effusion. Aorta: There is no dilatation of the aortic root. Venous: The inferior vena cava appears normal in size. Contrast: Definity was used to optimize study. Intravenous contrast was used to enhance endocardial border definition. Measurements Chambers 2D Name Value Normal Range Ao root diameter (2D) 3.4 cm (2 - 3.7) Aortic Valve Name Value Normal Range AV Vmax 0.98 m/sec - AV VTI 16.76 cm - AV peak gradient 3.83 mmHg - AV mean gradient 2.57 mmHg - LVOT diameter 3.11 cm - LVOT Vmax 0.68 m/sec - LVOT VTI 11.52 cm - LVOT peak gradient 1.84 mmHg - LVOT mean gradient 1.27 mmHg - SV LVOT 87.31 ml - MALOU (continuity Vmax) 5.24 cm2 - MALOU (continuity VTI) 5.21 cm2 - Tricuspid Valve Name Value Normal Range IVC diameter 2.24 cm (1.2 - 2.3) Hoffman/IV: Voiding Method Indwelling Catheter IV Catheter Type [Left INT / Saline Lock Antecubital] IV Catheter Type [Right INT / Saline Lock Forearm] IV Catheter Type [Right Hand] Peripheral IV IV Catheter Type [Right Upper INT / Saline Lock arm] IV Catheter Type [Left Upper Mid-line arm] IV Catheter Type [Left Forearm Peripheral IV ] IV Catheter Type [Left Hand] Peripheral IV IV Catheter Type [Left Wrist] INT / Saline Lock IV Catheter Type [Right Peripheral IV Antecubital] Active Medications - Current Medications Current Medications: Generic Name Dose Route Start Last Admin Trade Name Freq PRN Reason Stop Dose Admin Acetaminophen 650 mg 12/31/19 11:43 02/19/20 17:01 Tylenol FEEDTUBE 650 mg Q6H PRN Administration Pain, Mild (1-3) Lipase/Protease/Amylase 1 each 01/09/20 12:01 Nadir Betancourt 10,500 Unit FEEDTUBE PRN PRN For Clogged Feeding Tube Apixaban 5 mg 01/22/20 22:00 02/26/20 09:09 Eliquis PO 5 mg Q12HR CAR Administration Protocol Atorvastatin Calcium 40 mg 01/20/20 22:00 02/25/20 21:01 Lipitor PO 40 mg QHS CAR Administration Clopidogrel Bisulfate 75 mg 01/21/20 06:00 02/26/20 09:09 Plavix PO 75 mg QDAY CAR Administration Dextrose 50 ml 01/31/20 18:51 02/05/20 00:56 D50w (25gm) Syringe IV 50 ml Q30MIN PRN Administration Hypoglycemia Protocol Digoxin 0.125 mg 02/25/20 17:00 02/25/20 17:07 Lanoxin PO 0.125 mg DAILY@1700 CAR Administration Docusate Sodium 100 mg 02/22/20 10:00 02/26/20 09:09 Colace FEEDTUBE 100 mg BID CAR Administration Glycopyrrolate 2 mg 02/24/20 21:00 02/26/20 14:56 Glycopyrrolate PO 2 mg TID CAR Administration Haloperidol Lactate 5 mg 02/10/20 14:20 02/26/20 15:00 Haldol IV 5 mg Q6H PRN Administration Agitation Hydrophilic Ointment 1 applic 01/17/20 15:26 02/24/20 23:20 Vaseline Lip Therapy TP 1 applic DIRECT PRN Administration Dry Lips Insulin Human Regular 0 unit 02/01/20 18:00 02/26/20 12:28 Humulin R SUB-Q Not Given Q6H CAR Protocol Lansoprazole 30 mg 02/05/20 16:00 02/26/20 09:09 Prevacid Solutab FEEDTUBE 30 mg QDAY CAR Administration Metoprolol Tartrate 5 mg 01/11/20 08:00 02/16/20 22:00 Metoprolol IV 5 mg Q6H PRN Administration SEE INSTRUCTIONS Midodrine 15 mg 02/04/20 16:00 02/26/20 12:28 Proamatine PO 15 mg TID@0800,1200,1600 CAR Administration Morphine Sulfate 2 mg 01/06/20 15:41 02/24/20 14:42 Morphine IV 2 mg Q4H PRN Administration Pain, Moderate (4-6) Multi-Ingred Cream/Lotion/Oil/Oint 1 applic 02/01/20 15:52 Artificial Tears Ophth Oint OU Q4HR PRN Dry Eye(s) Nitroglycerin 0.4 mg 01/19/20 21:09 01/20/20 03:03 Nitrostat SL 0.4 mg .Q5MIN PRN Administration Chest Pain Ondansetron HCl 4 mg 01/05/20 14:37 02/26/20 03:15 Zofran IV 4 mg Q8H PRN Administration Nausea And Vomiting Polyethylene Glycol 17 gm 12/04/19 22:00 02/25/20 21:01 Miralax 3350 PO 17 gm QHS CAR Administration Quetiapine Fumarate 300 mg 01/13/20 22:00 02/26/20 09:09 Seroquel PO 300 mg BID CAR Administration Scopolamine 1 each 01/07/20 20:00 01/07/20 21:08 Transderm-Scop TD 1 each Q72HR CAR Administration Simple Syrup 15 ml 01/09/20 12:01 Simple Syrup FEEDTUBE PRN PRN Hypoglycemia Simple Syrup 30 ml 01/09/20 12:01 Simple Syrup FEEDTUBE PRN PRN Hypoglycemia Sodium Bicarbonate 325 mg 01/09/20 12:01 Sodium Bicarbonate FEEDTUBE PRN PRN For Clogged Feeding Tube Sodium Chloride 10 ml 11/24/19 10:00 02/26/20 09:10 Sodium Chloride Flush Syringe 10 Ml IV 10 ml BID CAR Administration Tamsulosin HCl 0.8 mg 12/20/19 22:00 02/25/20 21:01 Flomax PO 0.8 mg QHS CAR Administration Nutrition/Malnutrition Assess - Dietary Evaluation Nutrition/Malnutrition Findings: Nutrition Notes Start: 11/24/19 12:22 Freq: Status: Active Protocol: Document 02/26/20 11:54 EN (Rec: 02/26/20 12:02 EN [id number]) Co-Sign 02/26/20 11:54 MK Nutrition Notes Initial or Follow up Reassessment Current Diagnosis Coronary Artery Disease,Heart Failure,Respiratory Failure, Stroke,Hyperlipidemia Other Pertinent Diagnosis Partial SBO, pneu Current Diet Vital AF 1.2 at 75ml/hr Labs/Tests Reviewed Pertinent Medications Zofran Height 6 ft 2 in Weight 117.5 kg [place] Body Weight (kg) 86.36 BMI 33.3 Weight Status Obese Subjective/Other Information F/u for stable TF. Per RN, pt vomited last night and TF was restarted this morning at 15 ml/hr. Pt tolerating TF. RN reports no further episodes of emesis. 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 Yes Is Patient Ambulatory and/or Out of Bed No REE-([place]-[facility]. Jeor-confined to bed) 2452.344 Kcal/Kg value to use for calculation 16 Approximate Energy Requirements Using 1880 kcal/Kg Calculation Used for Recommendations Kcal/kg Additional Notes Protein needs are 117-147g (1. 2-1.5 g/kg AdBW of 97.78kg) Fluid needs are 1.5L [ End ] Nutrition Intervention Change Diet Order: Continue TF via PEG Nutrition Support: Vital AF 1.2 at 75ml/hr. increase Flush 250ml q4h for hypernatremia Flush 100ml q4h once hypernatremia is resolved Kcal 2,160 Protein (gm) 135 Fluid (mL) 1,460 Goal #1 Meet at least 75% of pt's energy and protein needs Goal #2 Weight maintenance Anticipated Discharge Needs: unable to determine at this time Follow-Up By: 02/29/20 Additional Comments F/u for TF rate/tolerance
[2020-02-26] MEDS: DIGOXIN 0.125 MG TAB PO SCH (16:46)
[2020-02-26] MEDS: TAMSULOSIN 0.4 MG CAP PO SCH (21:37)
[2020-02-26] MEDS: POLYETHYLENE GLYCOL 3350 17 GM POWDER PO SCH (21:38)
[2020-02-27] MEDS: INSULIN REGULAR, HUMAN 100 UNIT/ML 3ML VIAL SUB-Q SCH ×4 (07:45→18:31)
[2020-02-27] MEDS: GLYCOPYRROLATE 2 MG TAB PO SCH ×3 (08:18→20:58)
[2020-02-27] MEDS: MIDODRINE 5 MG TAB PO SCH ×3 (08:18→16:54)
[2020-02-27] MEDS: APIXABAN 5 MG TAB PO SCH ×2 (09:02→21:00)
[2020-02-27] MEDS: DOCUSATE SODIUM 100 MG/10 ML ORAL LIQD FEEDTUBE SCH ×2 (09:02→21:00)
[2020-02-27] MEDS: CLOPIDOGREL 75 MG TAB PO SCH (09:03)
[2020-02-27] MEDS: QUEtiapine 100 MG TAB PO SCH ×2 (09:03→21:01)
[2020-02-27] MEDS: LANSOPRAZOLE 30 MG SOLUTAB FEEDTUBE SCH (09:03)
--- NOTE | 2020-02-27 10:10 | Progress Note ---
Assessment and Plan - Patient Problems (1) Acute respiratory failure Current Visit: Yes Status: Acute (2) Bilateral pneumonia Current Visit: Yes Status: Acute (3) COPD exacerbation Current Visit: No Status: Acute (4) Hypertension Current Visit: No Status: Acute Qualifiers: Hypertension type: essential hypertension Qualified Code(s): I10 - Essential (primary) hypertension (5) Cardiomyopathy Current Visit: Yes Status: Acute (6) Paroxysmal atrial fibrillation Current Visit: Yes Status: Acute Subjective Date of service: 02/27/20 Principal diagnosis: Ac hypoxemic resp failure; Pneumonia; PUI COVID-19; CHF; COPD; HTN Interval history: alert,,,TRACH' IN PLACE,,,NOT SOB,,,,NO PAIN Objective Vital Signs Temp Pulse Pulse Resp BP Pulse Ox Pulse Ox 02/27/20 08:31 111 H 17 100/76 98 02/27/20 08:00 98.4 F 89 112 H 21 100/76 98 02/27/20 07:54 96 H 103/80 99 99 02/27/20 07:31 98 H 21 103/80 98 02/27/20 07:01 122 H 24 110/79 97 02/27/20 06:31 123 H 19 110/79 98 02/27/20 06:00 112 H 22 110/79 99 02/27/20 05:41 99 02/27/20 05:38 99 02/27/20 05:31 129 H 20 112/77 96 02/27/20 05:18 124 H 112/77 98 02/27/20 05:01 121 H 20 112/77 98 02/27/20 04:31 112 H 17 118/93 99 02/27/20 04:01 118 H 21 118/93 93 02/27/20 04:00 97.7 F 95 H 95 H 15 98 02/27/20 03:31 115 H 21 105/78 94 02/27/20 03:00 107 H 21 105/78 96 02/27/20 02:31 108 H 23 108/90 95 02/27/20 02:01 130 H 24 108/90 96 02/27/20 01:44 122 H 103/80 99 02/27/20 01:31 90 22 103/80 100 02/27/20 01:00 116 H 16 103/80 99 02/27/20 00:31 104 H 15 100/71 99 02/27/20 00:00 97.4 F L 114 H 120 H 17 100/71 97 02/26/20 23:31 111 H 22 109/81 96 02/26/20 23:00 98 H 24 101/68 94 02/26/20 22:33 119 H 19 109/81 97 02/26/20 22:31 127 H 21 109/81 99 02/26/20 22:28 117 H 15 109/81 98 02/26/20 22:00 104 H 14 109/81 99 02/26/20 21:31 113 H 19 111/85 99 02/26/20 21:00 115 H 21 111/85 97 02/26/20 20:51 93 H 114/81 99 02/26/20 20:31 93 H 18 114/81 97 02/26/20 20:24 97 H 24 114/81 98 02/26/20 20:00 97.5 F L 106 H 123 H 21 114/81 96 02/26/20 19:31 118 H 23 117/69 97 02/26/20 19:01 104 H 21 117/69 97 02/26/20 18:31 104 H 19 121/82 98 02/26/20 18:01 125 H 24 121/82 98 02/26/20 17:31 126 H 23 121/83 98 02/26/20 17:01 120 H 22 121/83 96 02/26/20 16:46 114 H 02/26/20 16:31 106 H 31 H 117/86 98 02/26/20 16:00 98.1 F 113 H 112 H 25 H 121/82 98 98 02/26/20 15:31 113 H 27 H 100/73 99 02/26/20 15:00 105 H 23 100/73 96 02/26/20 14:31 102 H 23 106/80 99 02/26/20 14:01 108 H 24 106/80 99 02/26/20 13:31 103 H 24 103/79 96 02/26/20 13:00 106 H 26 H 103/79 97 02/26/20 12:31 130 H 23 110/80 98 02/26/20 12:00 98.0 F 109 H 119 H 27 H 110/80 98 02/26/20 11:31 113 H 19 117/72 99 02/26/20 11:01 102 H 16 117/72 95 02/26/20 11:00 114 H 23 129/95 99 02/26/20 10:31 121 H 22 107/79 97 - Physical Examination General: Other (s/p trach) HEENT: Positive: PERRL Neck: Positive: neck supple Cardiac: Positive: Irregularly Regular Lungs: Positive: clear to auscultation Neuro: Positive: Weakness Abdomen: Positive: Soft Skin: Positive: Clear Extremities: Absent: edema (TR) - Allied health notes Allied health notes reviewed: nursing
[2020-02-27] MEDS: MORPHINE 2 MG/1 ML INJ IV PRN (12:10)
--- NOTE | 2020-02-27 14:16 | Progress Note ---
Assessment and Plan Acute hypoxemic respiratory failure Bilateral pneumonia, community acquired. Acute LLL branch P.E. Acute DVT Person under investigation for COVID-19 infection. Acute congestive heart failure exacerbation. History of cerebrovascular accident. Acute chronic obstructive pulmonary disease exacerbation. Hypertension and hypertensive urgency at presentation. History of arthritis. Leukocytosis. Lactic acidosis. Oropharyngeal dysphagia - p-supp reduced to 16 cm H2O - [employer] evaluation shortly - suppervised ice-chips prn meantime - continue care as below otherwise; - continue daily SAT's and SBT assessment as tolerated - continue Robinul & Scopolamine for secretion control - continue to rest on AC qhs - rate control per cardiology team - continue prn haldol for agitation to avoid hypoventilation (stopped Lorazepam) - continue Flomax - antiinfective's per ID rec's - Midodrine for BP support - prn mucomyst nebs re: secretions - continue full anticoagulation with Apixaban - continue seroquel for anxiolysis / delirium - COVID isolation per facility protocol - prn diuresis while following electrolytes / I's & O's - continue to wean oxygen for O2 sat's > 92% - continue bronchodilators with routine trach care and pulmonary hygiene per RT - continue Robinul & Scopolamine for secretion control - VAP bundle addressed (Aspiration precautions, HOB >40) - continue to wean per pulmonary driven protocols - sedation target is RASS 0 to -1 - continue prn analgesia per CPOT score - follow clinically re: fever curves / trend WBC - Avoid delirium (no benzodiazepines if they can be avoided) - Maintain sleep-wake cycle - enteral nutrition at goal rate as tolerated - continue accucheck's with glycemic control per SSI for target blood glucose goal of 140-180 mg/dL while critically ill; Avoid hypoglycemia - for VTE he is onEliquis - continue stress ulcer prophylaxis with Famotidine - continue mobility protocols for pressure ulcer prophylaxis - continue fall precautions - continue wound care management per RN / WCT - Supportive transfusions to keep HgB>7g/dL - CXR's and ABG's prn - Continue to monitor neurologic function - Continue chronic home medications - Continue all supportive care ........ re-evaluate in am & prn CONDITION: CRITICAL PROGNOSIS: GUARDED CODE STATUS: FULL CODE The high probability of a clinically significant, sudden or life threatening deterioration of the [Respiratory, cardiovascular & neurological] system(s) required my full and direct attention, intervention and personal management. The aggregate critical care time was [35] minutes without overlap. Time includes spent on [x] Data Review and interpretation [x] Patient assessment and monitoring of vital signs [x] Documentation [x] Medication orders and management Subjective Date of service: 02/27/20 Principal diagnosis: Ac hypoxemic resp failure; Pneumonia; PUI COVID-19; CHF; COPD; HTN Interval history: Patient is seen today for: Acute hypoxemic respiratory failure; [place]. Pneumonia (CAP); PUI COVID-19 infection; AE-CHF; AE-COPD; H/O CVA; HTN Seen and examined at bedside; 24 hour events reviewed; nursing and respiratory care staff consulted; no adverse overnight events reported to me; resting peacefully in bed; remains a difficult wean; on PSV trial but with p-supp at 20 cm H2O; thirsty; denies acute chest pains; No N/V/F/C today Objective Vital Signs - 12hr 02/27/20 02/27/20 02/27/20 02:31 03:00 03:31 Temperature Pulse Rate 108 H 107 H 115 H Pulse Rate [ From Monitor] Respiratory 23 21 21 Rate Blood Pressure 108/90 105/78 105/78 O2 Sat by Pulse 95 96 94 Oximetry O2 Sat by Pulse Oximetry [ Assessment] 02/27/20 02/27/20 02/27/20 04:00 04:01 04:31 Temperature 97.7 F Pulse Rate 95 H 118 H 112 H Pulse Rate [ 95 H From Monitor] Respiratory 15 21 17 Rate Blood Pressure 118/93 118/93 O2 Sat by Pulse 98 93 99 Oximetry O2 Sat by Pulse Oximetry [ Assessment] 02/27/20 02/27/20 02/27/20 05:01 05:18 05:31 Temperature Pulse Rate 121 H 124 H 129 H Pulse Rate [ From Monitor] Respiratory 20 20 Rate Blood Pressure 112/77 112/77 112/77 O2 Sat by Pulse 98 98 96 Oximetry O2 Sat by Pulse Oximetry [ Assessment] 02/27/20 02/27/20 02/27/20 05:38 05:41 06:00 Temperature Pulse Rate 112 H Pulse Rate [ From Monitor] Respiratory 22 Rate Blood Pressure 110/79 O2 Sat by Pulse 99 99 Oximetry O2 Sat by Pulse 99 Oximetry [ Assessment] 02/27/20 02/27/20 02/27/20 06:31 07:01 07:31 Temperature Pulse Rate 123 H 122 H 98 H Pulse Rate [ From Monitor] Respiratory 19 24 21 Rate Blood Pressure 110/79 110/79 103/80 O2 Sat by Pulse 98 97 98 Oximetry O2 Sat by Pulse Oximetry [ Assessment] 02/27/20 02/27/20 02/27/20 07:54 08:00 08:05 Temperature 98.4 F Pulse Rate 96 H 89 128 H Pulse Rate [ 112 H From Monitor] Respiratory 20 21 Rate Blood Pressure 103/80 100/76 144/101 O2 Sat by Pulse 99 98 99 Oximetry O2 Sat by Pulse 99 Oximetry [ Assessment] 02/27/20 02/27/20 02/27/20 08:31 09:01 09:31 Temperature Pulse Rate 111 H 126 H 109 H Pulse Rate [ From Monitor] Respiratory 17 26 H 20 Rate Blood Pressure 100/76 112/86 112/86 O2 Sat by Pulse 98 96 98 Oximetry O2 Sat by Pulse Oximetry [ Assessment] 02/27/20 02/27/20 02/27/20 10:00 10:01 11:45 Temperature Pulse Rate 101 H 129 H Pulse Rate [ From Monitor] Respiratory 14 29 H Rate Blood Pressure 90/73 126/99 O2 Sat by Pulse 99 98 100 Oximetry O2 Sat by Pulse Oximetry [ Assessment] 02/27/20 02/27/20 12:00 12:10 Temperature 97.5 F L Pulse Rate Pulse Rate [ From Monitor] Respiratory 22 Rate Blood Pressure O2 Sat by Pulse Oximetry O2 Sat by Pulse Oximetry [ Assessment] Constitutional: no acute distress, alert, other (elelelderly and obese male, normocephalic with mildly increased respiratory effort at rest) Eyes: non-icteric ENT: oropharynx moist, other (+ midline tracheostomy) Neck: supple, no JVD Effort: mildly labored Ascultation: Bilateral: diminished breath sounds, rhonchi (scant) Percussion: Bilateral: not dull Cardiovascular: irregular rhythm Gastrointestinal: normoactive bowel sounds, soft, non-tender, non-distended (protuberant), other (protuberant; PEG in place) Integumentary: normal Extremities: no cyanosis, pulses normal, no ischemia or petechiae, edema (bilateral lower) Neurologic: non-focal exam (moves extremities), pupils equal and round, other (intermittent agitation) Psychiatric: mood appropriate, affect normal CBC and BMP: 02/22/20 08:06 02/22/20 08:06 ABG, PT/INR, D-dimer: ABG ABG pH 7.461 pH Units (7.350-7.450) H 02/20/20 06:45 POC ABG pCO2 34.8 mmHg (32.0-48.0) 02/11/20 14:11 ABG pCO2 47.8 mm Hg 02/20/20 06:45 POC ABG pO2 77.7 mmHg (83-108) L 02/11/20 14:11 ABG pO2 88.7 mm Hg (80.0-90.0) 02/20/20 06:45 POC ABG HCO3 26.7 02/11/20 14:11 ABG O2 Saturation 97.2 % (95.0-99.0) 02/20/20 06:45 PT/INR, D-dimer PT 27.0 Sec. (12.2-14.9) H 02/07/20 15:03 INR 2.46 (0.87-1.13) H 02/07/20 15:03 Abnormal lab findings: Abnormal Labs 11/24/19 11/24/19 11/24/19 02:53 02:53 03:45 WBC 14.3 H RBC Hgb Hct MCHC RDW 17.2 H MCV MCH Lymph % (Auto) [place] % (Auto) [place] # Eos # Lymph # (Auto) [place] # (Auto) Eos # (Auto) Seg Neutrophils % Seg Neuts % (Manual) Baso # (Auto) Lymphocytes % (Manual) Monocytes % (Manual) Eosinophils % (Manual) Basophils % (Manual) Seg Neutrophils # Seg Neutrophils # Man 8.3 H Lymphocytes # (Manual) Monocytes # (Manual) 0.9 H Eosinophils # (Manual) Nucleated RBC % Basophils # (Manual) PT INR APTT Heparin Anti-Xa Level ABG pH 7.313 L POC ABG pO2 ABG pO2 102.8 H ABG HCO3 ABG O2 Saturation ABG Base Excess -2.9 L POC ABG pCO2 ABG Hemoglobin ABG Oxyhemoglobin ABG Chloride ABG Glucose Oxyhemoglobin 93.9 L Sodium Potassium Chloride Carbon Dioxide BUN Creatinine Glucose 195 H POC Glucose Lactic Acid Calcium Phosphorus Magnesium AST ALT Lactate Dehydrogenase Total Bilirubin Direct Bilirubin CK-MB (CK-2) 4.3 H C-Reactive Protein NT-Pro-B Natriuret Pep 1181 H Total Protein Albumin Arterial Blood Glucose Urine WBC (Auto) Urine Creatinine 11/24/19 11/24/19 11/24/19 04:53 04:53 10:37 WBC RBC Hgb Hct MCHC RDW MCV MCH Lymph % (Auto) [place] % (Auto) [place] # Eos # Lymph # (Auto) [place] # (Auto) Eos # (Auto) Seg Neutrophils % Seg Neuts % (Manual) Baso # (Auto) Lymphocytes % (Manual) Monocytes % (Manual) Eosinophils % (Manual) Basophils % (Manual) Seg Neutrophils # Seg Neutrophils # Man Lymphocytes # (Manual) Monocytes # (Manual) Eosinophils # (Manual) Nucleated RBC % Basophils # (Manual) PT INR APTT Heparin Anti-Xa Level ABG pH POC ABG pO2 ABG pO2 ABG HCO3 ABG O2 Saturation ABG Base Excess POC ABG pCO2 ABG Hemoglobin ABG Oxyhemoglobin ABG Chloride ABG Glucose Oxyhemoglobin Sodium Potassium Chloride Carbon Dioxide BUN Creatinine Glucose 162 H POC Glucose Lactic Acid 2.40 H* 2.50 H* Calcium Phosphorus Magnesium AST ALT Lactate Dehydrogenase 240 H Total Bilirubin Direct Bilirubin CK-MB (CK-2) C-Reactive Protein NT-Pro-B Natriuret Pep Total Protein Albumin Arterial Blood Glucose Urine WBC (Auto) Urine Creatinine 11/24/19 11/24/19 11/24/19 12:21 14:50 19:54 WBC RBC Hgb Hct MCHC RDW MCV MCH Lymph % (Auto) [place] % (Auto) [place] # Eos # Lymph # (Auto) [place] # (Auto) Eos # (Auto) Seg Neutrophils % Seg Neuts % (Manual) Baso # (Auto) Lymphocytes % (Manual) Monocytes % (Manual) Eosinophils % (Manual) Basophils % (Manual) Seg Neutrophils # Seg Neutrophils # Man Lymphocytes # (Manual) Monocytes # (Manual) Eosinophils # (Manual) Nucleated RBC % Basophils # (Manual) PT INR APTT Heparin Anti-Xa Level ABG pH POC ABG pO2 ABG pO2 ABG HCO3 ABG O2 Saturation ABG Base Excess POC ABG pCO2 ABG Hemoglobin ABG Oxyhemoglobin ABG Chloride ABG Glucose Oxyhemoglobin Sodium Potassium Chloride Carbon Dioxide BUN Creatinine Glucose POC Glucose 145 H 143 H 124 H Lactic Acid Calcium Phosphorus Magnesium AST ALT Lactate Dehydrogenase Total Bilirubin Direct Bilirubin CK-MB (CK-2) C-Reactive Protein NT-Pro-B Natriuret Pep Total Protein Albumin Arterial Blood Glucose Urine WBC (Auto) Urine Creatinine 11/25/19 11/25/19 11/25/19 00:18 03:18 05:11 WBC 13.7 H RBC Hgb Hct MCHC RDW 17.1 H MCV MCH Lymph % (Auto) 10.8 L [place] % (Auto) 8.7 H [place] # 1.2 H Eos # Lymph # (Auto) [place] # (Auto) Eos # (Auto) Seg Neutrophils % 80.2 H Seg Neuts % (Manual) Baso # (Auto) Lymphocytes % (Manual) Monocytes % (Manual) Eosinophils % (Manual) Basophils % (Manual) Seg Neutrophils # 11.0 H Seg Neutrophils # Man Lymphocytes # (Manual) Monocytes # (Manual) Eosinophils # (Manual) Nucleated RBC % Basophils # (Manual) PT INR APTT Heparin Anti-Xa Level ABG pH 7.333 L POC ABG pO2 ABG pO2 61.2 L ABG HCO3 ABG O2 Saturation 90.2 L ABG Base Excess POC ABG pCO2 ABG Hemoglobin 13.7 L ABG Oxyhemoglobin ABG Chloride ABG Glucose Oxyhemoglobin 88.2 L Sodium Potassium Chloride Carbon Dioxide BUN Creatinine Glucose POC Glucose 109 H Lactic Acid Calcium Phosphorus Magnesium AST ALT Lactate Dehydrogenase Total Bilirubin Direct Bilirubin CK-MB (CK-2) C-Reactive Protein NT-Pro-B Natriuret Pep Total Protein Albumin Arterial Blood Glucose Urine WBC (Auto) Urine Creatinine 11/25/19 11/25/19 11/26/19 05:11 11:40 03:12 WBC RBC Hgb Hct MCHC RDW MCV MCH Lymph % (Auto) [place] % (Auto) [place] # Eos # Lymph # (Auto) [place] # (Auto) Eos # (Auto) Seg Neutrophils % Seg Neuts % (Manual) Baso # (Auto) Lymphocytes % (Manual) Monocytes % (Manual) Eosinophils % (Manual) Basophils % (Manual) Seg Neutrophils # Seg Neutrophils # Man Lymphocytes # (Manual) Monocytes # (Manual) Eosinophils # (Manual) Nucleated RBC % Basophils # (Manual) PT INR APTT Heparin Anti-Xa Level ABG pH POC ABG pO2 ABG pO2 155.1 H ABG HCO3 27.8 H ABG O2 Saturation ABG Base Excess POC ABG pCO2 ABG Hemoglobin 12.2 L ABG Oxyhemoglobin ABG Chloride ABG Glucose Oxyhemoglobin Sodium Potassium Chloride Carbon Dioxide BUN 23 H Creatinine Glucose 110 H POC Glucose 108 H Lactic Acid Calcium Phosphorus Magnesium AST ALT Lactate Dehydrogenase Total Bilirubin Direct Bilirubin CK-MB (CK-2) C-Reactive Protein NT-Pro-B Natriuret Pep Total Protein Albumin Arterial Blood Glucose Urine WBC (Auto) Urine Creatinine 11/26/19 11/26/19 11/26/19 06:17 10:43 10:43 WBC 11.4 H RBC Hgb Hct MCHC RDW 17.1 H MCV MCH Lymph % (Auto) [place] % (Auto) [place] # Eos # Lymph # (Auto) [place] # (Auto) Eos # (Auto) Seg Neutrophils % Seg Neuts % (Manual) Baso # (Auto) Lymphocytes % (Manual) Monocytes % (Manual) Eosinophils % (Manual) Basophils % (Manual) Seg Neutrophils # Seg Neutrophils # Man Lymphocytes # (Manual) Monocytes # (Manual) Eosinophils # (Manual) Nucleated RBC % Basophils # (Manual) PT INR APTT Heparin Anti-Xa Level ABG pH POC ABG pO2 ABG pO2 ABG HCO3 ABG O2 Saturation ABG Base Excess POC ABG pCO2 ABG Hemoglobin ABG Oxyhemoglobin ABG Chloride ABG Glucose Oxyhemoglobin Sodium Potassium Chloride Carbon Dioxide BUN 29 H Creatinine Glucose POC Glucose 107 H Lactic Acid Calcium Phosphorus Magnesium AST ALT Lactate Dehydrogenase Total Bilirubin Direct Bilirubin CK-MB (CK-2) C-Reactive Protein NT-Pro-B Natriuret Pep Total Protein Albumin Arterial Blood Glucose Urine WBC (Auto) Urine Creatinine 11/26/19 11/27/19 11/27/19 17:11 01:53 04:11 WBC RBC Hgb Hct MCHC RDW MCV MCH Lymph % (Auto) [place] % (Auto) [place] # Eos # Lymph # (Auto) [place] # (Auto) Eos # (Auto) Seg Neutrophils % Seg Neuts % (Manual) Baso # (Auto) Lymphocytes % (Manual) Monocytes % (Manual) Eosinophils % (Manual) Basophils % (Manual) Seg Neutrophils # Seg Neutrophils # Man Lymphocytes # (Manual) Monocytes # (Manual) Eosinophils # (Manual) Nucleated RBC % Basophils # (Manual) PT INR APTT Heparin Anti-Xa Level ABG pH POC ABG pO2 ABG pO2 ABG HCO3 29.2 H ABG O2 Saturation ABG Base Excess 3.4 H POC ABG pCO2 ABG Hemoglobin 13.3 L ABG Oxyhemoglobin ABG Chloride ABG Glucose Oxyhemoglobin 94.5 L Sodium Potassium Chloride Carbon Dioxide BUN Creatinine Glucose POC Glucose 113 H 108 H Lactic Acid Calcium Phosphorus Magnesium AST ALT Lactate Dehydrogenase Total Bilirubin Direct Bilirubin CK-MB (CK-2) C-Reactive Protein NT-Pro-B Natriuret Pep Total Protein Albumin Arterial Blood Glucose Urine WBC (Auto) Urine Creatinine 11/27/19 11/28/19 11/28/19 05:27 05:00 05:25 WBC RBC Hgb Hct MCHC RDW MCV MCH Lymph % (Auto) [place] % (Auto) [place] # Eos # Lymph # (Auto) [place] # (Auto) Eos # (Auto) Seg Neutrophils % Seg Neuts % (Manual) Baso # (Auto) Lymphocytes % (Manual) Monocytes % (Manual) Eosinophils % (Manual) Basophils % (Manual) Seg Neutrophils # Seg Neutrophils # Man Lymphocytes # (Manual) Monocytes # (Manual) Eosinophils # (Manual) Nucleated RBC % Basophils # (Manual) PT INR APTT Heparin Anti-Xa Level ABG pH POC ABG pO2 68.1 L ABG pO2 ABG HCO3 ABG O2 Saturation ABG Base Excess POC ABG pCO2 ABG Hemoglobin ABG Oxyhemoglobin 91.2 L ABG Chloride ABG Glucose Oxyhemoglobin Sodium Potassium Chloride Carbon Dioxide BUN Creatinine Glucose POC Glucose 111 H 110 H Lactic Acid Calcium Phosphorus Magnesium AST ALT Lactate Dehydrogenase Total Bilirubin Direct Bilirubin CK-MB (CK-2) C-Reactive Protein NT-Pro-B Natriuret Pep Total Protein Albumin Arterial Blood Glucose Urine WBC (Auto) Urine Creatinine 11/28/19 11/28/19 11/28/19 12:08 13:47 13:47 WBC 11.3 H RBC Hgb Hct MCHC RDW 16.1 H MCV MCH Lymph % (Auto) [place] % (Auto) 9.9 H [place] # 1.1 H Eos # Lymph # (Auto) [place] # (Auto) Eos # (Auto) Seg Neutrophils % 71.4 H Seg Neuts % (Manual) Baso # (Auto) Lymphocytes % (Manual) Monocytes % (Manual) Eosinophils % (Manual) Basophils % (Manual) Seg Neutrophils # 8.1 H Seg Neutrophils # Man Lymphocytes # (Manual) Monocytes # (Manual) Eosinophils # (Manual) Nucleated RBC % Basophils # (Manual) PT INR APTT Heparin Anti-Xa Level ABG pH POC ABG pO2 ABG pO2 ABG HCO3 ABG O2 Saturation ABG Base Excess POC ABG pCO2 ABG Hemoglobin ABG Oxyhemoglobin ABG Chloride ABG Glucose Oxyhemoglobin Sodium Potassium Chloride Carbon Dioxide BUN 23 H Creatinine Glucose 123 H POC Glucose 112 H Lactic Acid Calcium Phosphorus Magnesium AST ALT Lactate Dehydrogenase Total Bilirubin Direct Bilirubin CK-MB (CK-2) C-Reactive Protein NT-Pro-B Natriuret Pep Total Protein Albumin 3.7 L Arterial Blood Glucose Urine WBC (Auto) Urine Creatinine 11/28/19 11/29/19 11/29/19 17:26 03:55 17:04 WBC RBC Hgb Hct MCHC RDW MCV MCH Lymph % (Auto) [place] % (Auto) [place] # Eos # Lymph # (Auto) [place] # (Auto) Eos # (Auto) Seg Neutrophils % Seg Neuts % (Manual) Baso # (Auto) Lymphocytes % (Manual) Monocytes % (Manual) Eosinophils % (Manual) Basophils % (Manual) Seg Neutrophils # Seg Neutrophils # Man Lymphocytes # (Manual) Monocytes # (Manual) Eosinophils # (Manual) Nucleated RBC % Basophils # (Manual) PT INR APTT Heparin Anti-Xa Level ABG pH POC ABG pO2 ABG pO2 65.7 L ABG HCO3 28.3 H ABG O2 Saturation 93.9 L ABG Base Excess 3.6 H POC ABG pCO2 ABG Hemoglobin 13.3 L ABG Oxyhemoglobin ABG Chloride ABG Glucose Oxyhemoglobin 91.5 L Sodium Potassium Chloride Carbon Dioxide BUN Creatinine Glucose POC Glucose 123 H 119 H Lactic Acid Calcium Phosphorus Magnesium AST ALT Lactate Dehydrogenase Total Bilirubin Direct Bilirubin CK-MB (CK-2) C-Reactive Protein NT-Pro-B Natriuret Pep Total Protein Albumin Arterial Blood Glucose Urine WBC (Auto) Urine Creatinine 11/30/19 11/30/19 11/30/19 04:17 04:17 04:56 WBC 13.4 H RBC Hgb Hct MCHC RDW 15.6 H MCV MCH Lymph % (Auto) [place] % (Auto) [place] # Eos # Lymph # (Auto) [place] # (Auto) Eos # (Auto) Seg Neutrophils % Seg Neuts % (Manual) Baso # (Auto) Lymphocytes % (Manual) Monocytes % (Manual) Eosinophils % (Manual) Basophils % (Manual) Seg Neutrophils # Seg Neutrophils # Man Lymphocytes # (Manual) Monocytes # (Manual) Eosinophils # (Manual) Nucleated RBC % Basophils # (Manual) PT INR APTT Heparin Anti-Xa Level ABG pH POC ABG pO2 ABG pO2 56.3 L ABG HCO3 29.3 H ABG O2 Saturation 91.5 L ABG Base Excess 4.7 H POC ABG pCO2 ABG Hemoglobin 12.1 L ABG Oxyhemoglobin ABG Chloride ABG Glucose Oxyhemoglobin 89.2 L Sodium 147 H Potassium Chloride Carbon Dioxide BUN 30 H Creatinine Glucose 124 H POC Glucose Lactic Acid Calcium Phosphorus Magnesium AST ALT Lactate Dehydrogenase Total Bilirubin Direct Bilirubin CK-MB (CK-2) C-Reactive Protein NT-Pro-B Natriuret Pep Total Protein Albumin 3.8 L Arterial Blood Glucose Urine WBC (Auto) Urine Creatinine 11/30/19 11/30/19 11/30/19 05:51 11:54 18:17 WBC RBC Hgb Hct MCHC RDW MCV MCH Lymph % (Auto) [place] % (Auto) [place] # Eos # Lymph # (Auto) [place] # (Auto) Eos # (Auto) Seg Neutrophils % Seg Neuts % (Manual) Baso # (Auto) Lymphocytes % (Manual) Monocytes % (Manual) Eosinophils % (Manual) Basophils % (Manual) Seg Neutrophils # Seg Neutrophils # Man Lymphocytes # (Manual) Monocytes # (Manual) Eosinophils # (Manual) Nucleated RBC % Basophils # (Manual) PT INR APTT Heparin Anti-Xa Level ABG pH POC ABG pO2 ABG pO2 ABG HCO3 ABG O2 Saturation ABG Base Excess POC ABG pCO2 ABG Hemoglobin ABG Oxyhemoglobin ABG Chloride ABG Glucose Oxyhemoglobin Sodium Potassium Chloride Carbon Dioxide BUN Creatinine Glucose POC Glucose 127 H 115 H 143 H Lactic Acid Calcium Phosphorus Magnesium AST ALT Lactate Dehydrogenase Total Bilirubin Direct Bilirubin CK-MB (CK-2) C-Reactive Protein NT-Pro-B Natriuret Pep Total Protein Albumin Arterial Blood Glucose Urine WBC (Auto) Urine Creatinine 12/01/19 12/01/19 12/01/19 01:18 05:22 12:16 WBC RBC Hgb Hct MCHC RDW MCV MCH Lymph % (Auto) [place] % (Auto) [place] # Eos # Lymph # (Auto) [place] # (Auto) Eos # (Auto) Seg Neutrophils % Seg Neuts % (Manual) Baso # (Auto) Lymphocytes % (Manual) Monocytes % (Manual) Eosinophils % (Manual) Basophils % (Manual) Seg Neutrophils # Seg Neutrophils # Man Lymphocytes # (Manual) Monocytes # (Manual) Eosinophils # (Manual) Nucleated RBC % Basophils # (Manual) PT INR APTT Heparin Anti-Xa Level ABG pH POC ABG pO2 ABG pO2 ABG HCO3 ABG O2 Saturation ABG Base Excess POC ABG pCO2 ABG Hemoglobin ABG Oxyhemoglobin ABG Chloride ABG Glucose Oxyhemoglobin Sodium Potassium 3.5 L Chloride 107.8 H Carbon Dioxide BUN 37 H Creatinine Glucose 157 H POC Glucose 118 H 148 H Lactic Acid Calcium 8.2 L D Phosphorus Magnesium AST 48 H ALT 60 H Lactate Dehydrogenase 194 H Total Bilirubin Direct Bilirubin CK-MB (CK-2) C-Reactive Protein 8.50 H NT-Pro-B Natriuret Pep Total Protein 5.5 L Albumin 2.8 L Arterial Blood Glucose Urine WBC (Auto) Urine Creatinine 12/01/19 12/02/19 12/02/19 18:04 00:05 05:16 WBC 11.4 H RBC Hgb Hct MCHC RDW 15.9 H MCV MCH Lymph % (Auto) [place] % (Auto) 9.9 H [place] # 1.1 H Eos # Lymph # (Auto) [place] # (Auto) Eos # (Auto) Seg Neutrophils % 70.3 H Seg Neuts % (Manual) Baso # (Auto) Lymphocytes % (Manual) Monocytes % (Manual) Eosinophils % (Manual) Basophils % (Manual) Seg Neutrophils # 8.0 H Seg Neutrophils # Man Lymphocytes # (Manual) Monocytes # (Manual) Eosinophils # (Manual) Nucleated RBC % Basophils # (Manual) PT INR APTT Heparin Anti-Xa Level ABG pH POC ABG pO2 ABG pO2 ABG HCO3 ABG O2 Saturation ABG Base Excess POC ABG pCO2 ABG Hemoglobin ABG Oxyhemoglobin ABG Chloride ABG Glucose Oxyhemoglobin Sodium Potassium Chloride Carbon Dioxide BUN Creatinine Glucose POC Glucose 143 H 107 H Lactic Acid Calcium Phosphorus Magnesium AST ALT Lactate Dehydrogenase Total Bilirubin Direct Bilirubin CK-MB (CK-2) C-Reactive Protein NT-Pro-B Natriuret Pep Total Protein Albumin Arterial Blood Glucose Urine WBC (Auto) Urine Creatinine 12/02/19 12/02/19 12/02/19 05:16 06:03 11:52 WBC RBC Hgb Hct MCHC RDW MCV MCH Lymph % (Auto) [place] % (Auto) [place] # Eos # Lymph # (Auto) [place] # (Auto) Eos # (Auto) Seg Neutrophils % Seg Neuts % (Manual) Baso # (Auto) Lymphocytes % (Manual) Monocytes % (Manual) Eosinophils % (Manual) Basophils % (Manual) Seg Neutrophils # Seg Neutrophils # Man Lymphocytes # (Manual) Monocytes # (Manual) Eosinophils # (Manual) Nucleated RBC % Basophils # (Manual) PT INR APTT Heparin Anti-Xa Level ABG pH POC ABG pO2 ABG pO2 ABG HCO3 ABG O2 Saturation ABG Base Excess POC ABG pCO2 ABG Hemoglobin ABG Oxyhemoglobin ABG Chloride ABG Glucose Oxyhemoglobin Sodium 146 H Potassium Chloride Carbon Dioxide BUN 28 H Creatinine Glucose 123 H POC Glucose 110 H 152 H Lactic Acid Calcium Phosphorus Magnesium AST ALT Lactate Dehydrogenase Total Bilirubin Direct Bilirubin CK-MB (CK-2) C-Reactive Protein NT-Pro-B Natriuret Pep Total Protein Albumin Arterial Blood Glucose Urine WBC (Auto) Urine Creatinine 12/02/19 12/02/19 12/02/19 12:58 17:58 23:36 WBC RBC Hgb Hct MCHC RDW MCV MCH Lymph % (Auto) [place] % (Auto) [place] # Eos # Lymph # (Auto) [place] # (Auto) Eos # (Auto) Seg Neutrophils % Seg Neuts % (Manual) Baso # (Auto) Lymphocytes % (Manual) Monocytes % (Manual) Eosinophils % (Manual) Basophils % (Manual) Seg Neutrophils # Seg Neutrophils # Man Lymphocytes # (Manual) Monocytes # (Manual) Eosinophils # (Manual) Nucleated RBC % Basophils # (Manual) PT INR APTT Heparin Anti-Xa Level ABG pH POC ABG pO2 78.1 L ABG pO2 ABG HCO3 ABG O2 Saturation ABG Base Excess POC ABG pCO2 ABG Hemoglobin ABG Oxyhemoglobin ABG Chloride ABG Glucose Oxyhemoglobin Sodium Potassium Chloride Carbon Dioxide BUN Creatinine Glucose POC Glucose 120 H 123 H Lactic Acid Calcium Phosphorus Magnesium AST ALT Lactate Dehydrogenase Total Bilirubin Direct Bilirubin CK-MB (CK-2) C-Reactive Protein NT-Pro-B Natriuret Pep Total Protein Albumin Arterial Blood Glucose Urine WBC (Auto) Urine Creatinine 12/03/19 12/03/19 12/03/19 06:03 06:14 11:46 WBC RBC Hgb Hct MCHC RDW MCV MCH Lymph % (Auto) [place] % (Auto) [place] # Eos # Lymph # (Auto) [place] # (Auto) Eos # (Auto) Seg Neutrophils % Seg Neuts % (Manual) Baso # (Auto) Lymphocytes % (Manual) Monocytes % (Manual) Eosinophils % (Manual) Basophils % (Manual) Seg Neutrophils # Seg Neutrophils # Man Lymphocytes # (Manual) Monocytes # (Manual) Eosinophils # (Manual) Nucleated RBC % Basophils # (Manual) PT INR APTT Heparin Anti-Xa Level ABG pH POC ABG pO2 ABG pO2 ABG HCO3 ABG O2 Saturation ABG Base Excess POC ABG pCO2 ABG Hemoglobin ABG Oxyhemoglobin ABG Chloride ABG Glucose Oxyhemoglobin Sodium Potassium Chloride Carbon Dioxide BUN Creatinine Glucose POC Glucose 142 H 130 H Lactic Acid Calcium Phosphorus Magnesium AST ALT Lactate Dehydrogenase Total Bilirubin Direct Bilirubin CK-MB (CK-2) C-Reactive Protein NT-Pro-B Natriuret Pep Total Protein Albumin Arterial Blood Glucose Urine WBC (Auto) 8.0 H Urine Creatinine 12/03/19 12/03/19 12/04/19 15:50 17:39 00:04 WBC RBC Hgb Hct MCHC RDW MCV MCH Lymph % (Auto) [place] % (Auto) [place] # Eos # Lymph # (Auto) [place] # (Auto) Eos # (Auto) Seg Neutrophils % Seg Neuts % (Manual) Baso # (Auto) Lymphocytes % (Manual) Monocytes % (Manual) Eosinophils % (Manual) Basophils % (Manual) Seg Neutrophils # Seg Neutrophils # Man Lymphocytes # (Manual) Monocytes # (Manual) Eosinophils # (Manual) Nucleated RBC % Basophils # (Manual) PT INR APTT Heparin Anti-Xa Level ABG pH POC ABG pO2 ABG pO2 ABG HCO3 ABG O2 Saturation ABG Base Excess POC ABG pCO2 ABG Hemoglobin ABG Oxyhemoglobin ABG Chloride ABG Glucose Oxyhemoglobin Sodium Potassium Chloride Carbon Dioxide BUN Creatinine Glucose POC Glucose 146 H 133 H Lactic Acid Calcium Phosphorus 2.40 L Magnesium AST ALT Lactate Dehydrogenase Total Bilirubin Direct Bilirubin CK-MB (CK-2) C-Reactive Protein NT-Pro-B Natriuret Pep Total Protein Albumin Arterial Blood Glucose Urine WBC (Auto) Urine Creatinine 12/04/19 12/04/19 12/04/19 03:58 03:58 05:22 WBC 12.5 H RBC Hgb 11.2 L Hct 35.2 L MCHC RDW 16.0 H MCV MCH Lymph % (Auto) [place] % (Auto) 9.6 H [place] # 1.2 H Eos # 0.5 H Lymph # (Auto) [place] # (Auto) Eos # (Auto) Seg Neutrophils % Seg Neuts % (Manual) Baso # (Auto) Lymphocytes % (Manual) Monocytes % (Manual) Eosinophils % (Manual) Basophils % (Manual) Seg Neutrophils # 8.6 H Seg Neutrophils # Man Lymphocytes # (Manual) Monocytes # (Manual) Eosinophils # (Manual) Nucleated RBC % Basophils # (Manual) PT INR APTT Heparin Anti-Xa Level ABG pH POC ABG pO2 ABG pO2 ABG HCO3 ABG O2 Saturation ABG Base Excess POC ABG pCO2 ABG Hemoglobin ABG Oxyhemoglobin ABG Chloride ABG Glucose Oxyhemoglobin Sodium 146 H Potassium Chloride 108.6 H Carbon Dioxide BUN 30 H Creatinine 0.7 L Glucose 121 H POC Glucose 132 H Lactic Acid Calcium Phosphorus Magnesium AST ALT Lactate Dehydrogenase Total Bilirubin Direct Bilirubin CK-MB (CK-2) C-Reactive Protein NT-Pro-B Natriuret Pep Total Protein Albumin Arterial Blood Glucose Urine WBC (Auto) Urine Creatinine 12/04/19 12/04/19 12/05/19 13:26 18:43 00:19 WBC RBC Hgb Hct MCHC RDW MCV MCH Lymph % (Auto) [place] % (Auto) [place] # Eos # Lymph # (Auto) [place] # (Auto) Eos # (Auto) Seg Neutrophils % Seg Neuts % (Manual) Baso # (Auto) Lymphocytes % (Manual) Monocytes % (Manual) Eosinophils % (Manual) Basophils % (Manual) Seg Neutrophils # Seg Neutrophils # Man Lymphocytes # (Manual) Monocytes # (Manual) Eosinophils # (Manual) Nucleated RBC % Basophils # (Manual) PT INR APTT Heparin Anti-Xa Level ABG pH POC ABG pO2 ABG pO2 ABG HCO3 ABG O2 Saturation ABG Base Excess POC ABG pCO2 ABG Hemoglobin ABG Oxyhemoglobin ABG Chloride ABG Glucose Oxyhemoglobin Sodium Potassium Chloride Carbon Dioxide BUN Creatinine Glucose POC Glucose 185 H 156 H 150 H Lactic Acid Calcium Phosphorus Magnesium AST ALT Lactate Dehydrogenase Total Bilirubin Direct Bilirubin CK-MB (CK-2) C-Reactive Protein NT-Pro-B Natriuret Pep Total Protein Albumin Arterial Blood Glucose Urine WBC (Auto) Urine Creatinine 12/05/19 12/05/19 12/05/19 03:37 03:37 05:14 WBC 16.3 H RBC Hgb 11.4 L Hct MCHC RDW 15.6 H MCV MCH Lymph % (Auto) 9.9 L [place] % (Auto) 9.7 H [place] # 1.6 H Eos # Lymph # (Auto) [place] # (Auto) Eos # (Auto) Seg Neutrophils % 78.0 H Seg Neuts % (Manual) Baso # (Auto) Lymphocytes % (Manual) Monocytes % (Manual) Eosinophils % (Manual) Basophils % (Manual) Seg Neutrophils # 12.7 H Seg Neutrophils # Man Lymphocytes # (Manual) Monocytes # (Manual) Eosinophils # (Manual) Nucleated RBC % Basophils # (Manual) PT INR APTT Heparin Anti-Xa Level ABG pH POC ABG pO2 ABG pO2 ABG HCO3 ABG O2 Saturation ABG Base Excess POC ABG pCO2 ABG Hemoglobin ABG Oxyhemoglobin ABG Chloride ABG Glucose Oxyhemoglobin Sodium 146 H Potassium Chloride 107.2 H Carbon Dioxide BUN 27 H Creatinine 0.7 L Glucose 171 H POC Glucose 168 H Lactic Acid Calcium Phosphorus Magnesium AST ALT Lactate Dehydrogenase Total Bilirubin Direct Bilirubin CK-MB (CK-2) C-Reactive Protein NT-Pro-B Natriuret Pep Total Protein Albumin Arterial Blood Glucose Urine WBC (Auto) Urine Creatinine 12/05/19 12/05/19 12/05/19 12:31 18:10 23:58 WBC RBC Hgb Hct MCHC RDW MCV MCH Lymph % (Auto) [place] % (Auto) [place] # Eos # Lymph # (Auto) [place] # (Auto) Eos # (Auto) Seg Neutrophils % Seg Neuts % (Manual) Baso # (Auto) Lymphocytes % (Manual) Monocytes % (Manual) Eosinophils % (Manual) Basophils % (Manual) Seg Neutrophils # Seg Neutrophils # Man Lymphocytes # (Manual) Monocytes # (Manual) Eosinophils # (Manual) Nucleated RBC % Basophils # (Manual) PT INR APTT Heparin Anti-Xa Level ABG pH POC ABG pO2 ABG pO2 ABG HCO3 ABG O2 Saturation ABG Base Excess POC ABG pCO2 ABG Hemoglobin ABG Oxyhemoglobin ABG Chloride ABG Glucose Oxyhemoglobin Sodium Potassium Chloride Carbon Dioxide BUN Creatinine Glucose POC Glucose 159 H 198 H 115 H Lactic Acid Calcium Phosphorus Magnesium AST ALT Lactate Dehydrogenase Total Bilirubin Direct Bilirubin CK-MB (CK-2) C-Reactive Protein NT-Pro-B Natriuret Pep Total Protein Albumin Arterial Blood Glucose Urine WBC (Auto) Urine Creatinine 12/06/19 12/06/19 12/06/19 05:24 05:24 05:25 WBC 14.9 H RBC Hgb 10.8 L Hct 34.0 L MCHC RDW 15.6 H MCV MCH Lymph % (Auto) 10.7 L [place] % (Auto) 8.3 H [place] # 1.2 H Eos # Lymph # (Auto) [place] # (Auto) Eos # (Auto) Seg Neutrophils % 78.7 H Seg Neuts % (Manual) Baso # (Auto) Lymphocytes % (Manual) Monocytes % (Manual) Eosinophils % (Manual) Basophils % (Manual) Seg Neutrophils # 11.7 H Seg Neutrophils # Man Lymphocytes # (Manual) Monocytes # (Manual) Eosinophils # (Manual) Nucleated RBC % Basophils # (Manual) PT INR APTT Heparin Anti-Xa Level ABG pH POC ABG pO2 ABG pO2 ABG HCO3 ABG O2 Saturation ABG Base Excess POC ABG pCO2 ABG Hemoglobin ABG Oxyhemoglobin ABG Chloride ABG Glucose Oxyhemoglobin Sodium 148 H Potassium 5.1 H Chloride 107.6 H Carbon Dioxide BUN 27 H Creatinine 0.7 L Glucose 155 H POC Glucose 157 H Lactic Acid Calcium Phosphorus Magnesium AST ALT Lactate Dehydrogenase Total Bilirubin Direct Bilirubin CK-MB (CK-2) C-Reactive Protein NT-Pro-B Natriuret Pep Total Protein Albumin Arterial Blood Glucose Urine WBC (Auto) Urine Creatinine 12/07/19 12/07/19 12/07/19 00:13 05:34 11:33 WBC RBC Hgb Hct MCHC RDW MCV MCH Lymph % (Auto) [place] % (Auto) [place] # Eos # Lymph # (Auto) [place] # (Auto) Eos # (Auto) Seg Neutrophils % Seg Neuts % (Manual) Baso # (Auto) Lymphocytes % (Manual) Monocytes % (Manual) Eosinophils % (Manual) Basophils % (Manual) Seg Neutrophils # Seg Neutrophils # Man Lymphocytes # (Manual) Monocytes # (Manual) Eosinophils # (Manual) Nucleated RBC % Basophils # (Manual) PT INR APTT Heparin Anti-Xa Level ABG pH POC ABG pO2 ABG pO2 ABG HCO3 ABG O2 Saturation ABG Base Excess POC ABG pCO2 ABG Hemoglobin ABG Oxyhemoglobin ABG Chloride ABG Glucose Oxyhemoglobin Sodium Potassium Chloride Carbon Dioxide BUN Creatinine Glucose POC Glucose 142 H 111 H 169 H Lactic Acid Calcium Phosphorus Magnesium AST ALT Lactate Dehydrogenase Total Bilirubin Direct Bilirubin CK-MB (CK-2) C-Reactive Protein NT-Pro-B Natriuret Pep Total Protein Albumin Arterial Blood Glucose Urine WBC (Auto) Urine Creatinine 12/07/19 12/07/19 12/07/19 12:41 13:25 18:19 WBC 12.4 H RBC 3.53 L Hgb 10.2 L Hct 32.1 L MCHC RDW 15.3 H MCV MCH Lymph % (Auto) 10.6 L [place] % (Auto) 7.8 H [place] # 1.0 H Eos # Lymph # (Auto) [place] # (Auto) Eos # (Auto) Seg Neutrophils % 77.6 H Seg Neuts % (Manual) Baso # (Auto) Lymphocytes % (Manual) Monocytes % (Manual) Eosinophils % (Manual) Basophils % (Manual) Seg Neutrophils # 9.6 H Seg Neutrophils # Man Lymphocytes # (Manual) Monocytes # (Manual) Eosinophils # (Manual) Nucleated RBC % Basophils # (Manual) PT INR APTT Heparin Anti-Xa Level ABG pH POC ABG pO2 ABG pO2 ABG HCO3 ABG O2 Saturation ABG Base Excess POC ABG pCO2 ABG Hemoglobin ABG Oxyhemoglobin ABG Chloride ABG Glucose Oxyhemoglobin Sodium 149 H Potassium Chloride 108.4 H Carbon Dioxide BUN 26 H Creatinine 0.6 L Glucose 149 H POC Glucose 164 H Lactic Acid Calcium Phosphorus Magnesium 2.60 H AST 121 H ALT 145 H Lactate Dehydrogenase Total Bilirubin Direct Bilirubin CK-MB (CK-2) C-Reactive Protein NT-Pro-B Natriuret Pep Total Protein Albumin 2.6 L Arterial Blood Glucose Urine WBC (Auto) Urine Creatinine 12/07/19 12/08/19 12/08/19 22:25 00:02 03:55 WBC 13.3 H RBC 3.40 L Hgb 9.7 L Hct 30.8 L MCHC 31 L RDW 15.5 H MCV MCH Lymph % (Auto) [place] % (Auto) 8.1 H [place] # 1.1 H Eos # Lymph # (Auto) [place] # (Auto) Eos # (Auto) Seg Neutrophils % 73.0 H Seg Neuts % (Manual) Baso # (Auto) Lymphocytes % (Manual) Monocytes % (Manual) Eosinophils % (Manual) Basophils % (Manual) Seg Neutrophils # 9.7 H Seg Neutrophils # Man Lymphocytes # (Manual) Monocytes # (Manual) Eosinophils # (Manual) Nucleated RBC % Basophils # (Manual) PT INR APTT Heparin Anti-Xa Level 0.12 L ABG pH POC ABG pO2 ABG pO2 ABG HCO3 ABG O2 Saturation ABG Base Excess POC ABG pCO2 ABG Hemoglobin ABG Oxyhemoglobin ABG Chloride ABG Glucose Oxyhemoglobin Sodium Potassium Chloride Carbon Dioxide BUN Creatinine Glucose POC Glucose 151 H Lactic Acid Calcium Phosphorus Magnesium AST ALT Lactate Dehydrogenase Total Bilirubin Direct Bilirubin CK-MB (CK-2) C-Reactive Protein NT-Pro-B Natriuret Pep Total Protein Albumin Arterial Blood Glucose Urine WBC (Auto) Urine Creatinine 12/08/19 12/08/19 12/08/19 03:55 05:21 06:01 WBC RBC Hgb Hct MCHC RDW MCV MCH Lymph % (Auto) [place] % (Auto) [place] # Eos # Lymph # (Auto) [place] # (Auto) Eos # (Auto) Seg Neutrophils % Seg Neuts % (Manual) Baso # (Auto) Lymphocytes % (Manual) Monocytes % (Manual) Eosinophils % (Manual) Basophils % (Manual) Seg Neutrophils # Seg Neutrophils # Man Lymphocytes # (Manual) Monocytes # (Manual) Eosinophils # (Manual) Nucleated RBC % Basophils # (Manual) PT INR APTT Heparin Anti-Xa Level 0.20 L ABG pH POC ABG pO2 ABG pO2 ABG HCO3 ABG O2 Saturation ABG Base Excess POC ABG pCO2 ABG Hemoglobin ABG Oxyhemoglobin ABG Chloride ABG Glucose Oxyhemoglobin Sodium 149 H Potassium Chloride 108.0 H Carbon Dioxide BUN 28 H Creatinine 0.6 L Glucose 144 H POC Glucose 143 H Lactic Acid Calcium Phosphorus Magnesium AST 98 H ALT 145 H Lactate Dehydrogenase Total Bilirubin Direct Bilirubin CK-MB (CK-2) C-Reactive Protein NT-Pro-B Natriuret Pep Total Protein 6.0 L Albumin 2.4 L Arterial Blood Glucose Urine WBC (Auto) Urine Creatinine 12/08/19 12/08/19 12/08/19 12:08 18:11 23:53 WBC RBC Hgb Hct MCHC RDW MCV MCH Lymph % (Auto) [place] % (Auto) [place] # Eos # Lymph # (Auto) [place] # (Auto) Eos # (Auto) Seg Neutrophils % Seg Neuts % (Manual) Baso # (Auto) Lymphocytes % (Manual) Monocytes % (Manual) Eosinophils % (Manual) Basophils % (Manual) Seg Neutrophils # Seg Neutrophils # Man Lymphocytes # (Manual) Monocytes # (Manual) Eosinophils # (Manual) Nucleated RBC % Basophils # (Manual) PT INR APTT Heparin Anti-Xa Level ABG pH POC ABG pO2 ABG pO2 ABG HCO3 ABG O2 Saturation ABG Base Excess POC ABG pCO2 ABG Hemoglobin ABG Oxyhemoglobin ABG Chloride ABG Glucose Oxyhemoglobin Sodium Potassium Chloride Carbon Dioxide BUN Creatinine Glucose POC Glucose 172 H 122 H 162 H Lactic Acid Calcium Phosphorus Magnesium AST ALT Lactate Dehydrogenase Total Bilirubin Direct Bilirubin CK-MB (CK-2) C-Reactive Protein NT-Pro-B Natriuret Pep Total Protein Albumin Arterial Blood Glucose Urine WBC (Auto) Urine Creatinine 12/09/19 12/09/19 12/09/19 04:03 04:03 05:53 WBC RBC Hgb 9.1 L Hct 28.9 L MCHC RDW MCV MCH Lymph % (Auto) [place] % (Auto) [place] # Eos # Lymph # (Auto) [place] # (Auto) Eos # (Auto) Seg Neutrophils % Seg Neuts % (Manual) Baso # (Auto) Lymphocytes % (Manual) Monocytes % (Manual) Eosinophils % (Manual) Basophils % (Manual) Seg Neutrophils # Seg Neutrophils # Man Lymphocytes # (Manual) Monocytes # (Manual) Eosinophils # (Manual) Nucleated RBC % Basophils # (Manual) PT INR APTT Heparin Anti-Xa Level 0.15 L ABG pH POC ABG pO2 ABG pO2 ABG HCO3 ABG O2 Saturation ABG Base Excess POC ABG pCO2 ABG Hemoglobin ABG Oxyhemoglobin ABG Chloride ABG Glucose Oxyhemoglobin Sodium Potassium Chloride Carbon Dioxide BUN Creatinine Glucose POC Glucose 124 H Lactic Acid Calcium Phosphorus Magnesium AST ALT Lactate Dehydrogenase Total Bilirubin Direct Bilirubin CK-MB (CK-2) C-Reactive Protein NT-Pro-B Natriuret Pep Total Protein Albumin Arterial Blood Glucose Urine WBC (Auto) Urine Creatinine 12/09/19 12/09/19 12/10/19 09:43 12:41 00:13 WBC RBC Hgb Hct MCHC RDW MCV MCH Lymph % (Auto) [place] % (Auto) [place] # Eos # Lymph # (Auto) [place] # (Auto) Eos # (Auto) Seg Neutrophils % Seg Neuts % (Manual) Baso # (Auto) Lymphocytes % (Manual) Monocytes % (Manual) Eosinophils % (Manual) Basophils % (Manual) Seg Neutrophils # Seg Neutrophils # Man Lymphocytes # (Manual) Monocytes # (Manual) Eosinophils # (Manual) Nucleated RBC % Basophils # (Manual) PT INR APTT Heparin Anti-Xa Level ABG pH POC ABG pO2 ABG pO2 ABG HCO3 ABG O2 Saturation ABG Base Excess POC ABG pCO2 ABG Hemoglobin ABG Oxyhemoglobin ABG Chloride ABG Glucose Oxyhemoglobin Sodium Potassium Chloride Carbon Dioxide BUN 25 H Creatinine 0.6 L Glucose 131 H POC Glucose 109 H 120 H Lactic Acid Calcium Phosphorus Magnesium AST ALT Lactate Dehydrogenase Total Bilirubin Direct Bilirubin CK-MB (CK-2) C-Reactive Protein NT-Pro-B Natriuret Pep Total Protein Albumin Arterial Blood Glucose Urine WBC (Auto) Urine Creatinine 12/10/19 12/10/19 12/10/19 04:14 04:14 12:00 WBC 13.3 H RBC 3.34 L Hgb 9.6 L Hct 30.4 L MCHC RDW 15.4 H MCV MCH Lymph % (Auto) [place] % (Auto) [place] # Eos # Lymph # (Auto) [place] # (Auto) Eos # (Auto) Seg Neutrophils % Seg Neuts % (Manual) 75.0 H Baso # (Auto) Lymphocytes % (Manual) 13.0 L Monocytes % (Manual) 8.0 H Eosinophils % (Manual) Basophils % (Manual) 2.0 H Seg Neutrophils # Seg Neutrophils # Man 10.0 H Lymphocytes # (Manual) Monocytes # (Manual) 1.1 H Eosinophils # (Manual) Nucleated RBC % Basophils # (Manual) 0.3 H PT INR APTT Heparin Anti-Xa Level ABG pH POC ABG pO2 ABG pO2 ABG HCO3 ABG O2 Saturation ABG Base Excess POC ABG pCO2 ABG Hemoglobin ABG Oxyhemoglobin ABG Chloride ABG Glucose Oxyhemoglobin Sodium 147 H Potassium Chloride 108.3 H Carbon Dioxide BUN 21 H Creatinine 0.6 L Glucose 104 H POC Glucose 133 H Lactic Acid Calcium Phosphorus Magnesium AST ALT Lactate Dehydrogenase Total Bilirubin Direct Bilirubin CK-MB (CK-2) C-Reactive Protein NT-Pro-B Natriuret Pep Total Protein Albumin Arterial Blood Glucose Urine WBC (Auto) Urine Creatinine 12/10/19 12/10/19 12/11/19 18:44 21:20 00:08 WBC 14.9 H RBC 3.36 L Hgb 9.6 L Hct 30.5 L MCHC RDW 15.4 H MCV MCH Lymph % (Auto) [place] % (Auto) [place] # Eos # Lymph # (Auto) [place] # (Auto) Eos # (Auto) Seg Neutrophils % Seg Neuts % (Manual) Baso # (Auto) Lymphocytes % (Manual) Monocytes % (Manual) Eosinophils % (Manual) Basophils % (Manual) Seg Neutrophils # Seg Neutrophils # Man Lymphocytes # (Manual) Monocytes # (Manual) Eosinophils # (Manual) Nucleated RBC % Basophils # (Manual) PT INR APTT Heparin Anti-Xa Level ABG pH POC ABG pO2 ABG pO2 ABG HCO3 ABG O2 Saturation ABG Base Excess POC ABG pCO2 ABG Hemoglobin ABG Oxyhemoglobin ABG Chloride ABG Glucose Oxyhemoglobin Sodium Potassium Chloride Carbon Dioxide BUN Creatinine Glucose POC Glucose 119 H 134 H Lactic Acid Calcium Phosphorus Magnesium AST ALT Lactate Dehydrogenase Total Bilirubin Direct Bilirubin CK-MB (CK-2) C-Reactive Protein NT-Pro-B Natriuret Pep Total Protein Albumin Arterial Blood Glucose Urine WBC (Auto) Urine Creatinine 12/11/19 12/11/19 12/11/19 03:54 07:28 08:36 WBC 11.9 H RBC 3.25 L Hgb 9.6 L Hct 29.2 L MCHC RDW 15.7 H MCV MCH Lymph % (Auto) [place] % (Auto) [place] # Eos # Lymph # (Auto) [place] # (Auto) Eos # (Auto) Seg Neutrophils % Seg Neuts % (Manual) Baso # (Auto) Lymphocytes % (Manual) Monocytes % (Manual) Eosinophils % (Manual) Basophils % (Manual) Seg Neutrophils # Seg Neutrophils # Man Lymphocytes # (Manual) Monocytes # (Manual) Eosinophils # (Manual) Nucleated RBC % Basophils # (Manual) PT INR APTT Heparin Anti-Xa Level 0.10 L 0.16 L ABG pH POC ABG pO2 ABG pO2 ABG HCO3 ABG O2 Saturation ABG Base Excess POC ABG pCO2 ABG Hemoglobin ABG Oxyhemoglobin ABG Chloride ABG Glucose Oxyhemoglobin Sodium Potassium Chloride Carbon Dioxide BUN Creatinine Glucose POC Glucose Lactic Acid Calcium Phosphorus Magnesium AST ALT Lactate Dehydrogenase Total Bilirubin Direct Bilirubin CK-MB (CK-2) C-Reactive Protein NT-Pro-B Natriuret Pep Total Protein Albumin Arterial Blood Glucose Urine WBC (Auto) Urine Creatinine 12/11/19 12/11/19 12/11/19 08:36 11:45 17:15 WBC RBC Hgb Hct MCHC RDW MCV MCH Lymph % (Auto) [place] % (Auto) [place] # Eos # Lymph # (Auto) [place] # (Auto) Eos # (Auto) Seg Neutrophils % Seg Neuts % (Manual) Baso # (Auto) Lymphocytes % (Manual) Monocytes % (Manual) Eosinophils % (Manual) Basophils % (Manual) Seg Neutrophils # Seg Neutrophils # Man Lymphocytes # (Manual) Monocytes # (Manual) Eosinophils # (Manual) Nucleated RBC % Basophils # (Manual) PT INR APTT Heparin Anti-Xa Level ABG pH POC ABG pO2 ABG pO2 ABG HCO3 ABG O2 Saturation ABG Base Excess POC ABG pCO2 ABG Hemoglobin ABG Oxyhemoglobin ABG Chloride ABG Glucose Oxyhemoglobin Sodium Potassium Chloride Carbon Dioxide BUN Creatinine 0.5 L Glucose 128 H POC Glucose 136 H 109 H Lactic Acid Calcium Phosphorus Magnesium AST ALT Lactate Dehydrogenase Total Bilirubin Direct Bilirubin CK-MB (CK-2) C-Reactive Protein NT-Pro-B Natriuret Pep Total Protein Albumin Arterial Blood Glucose Urine WBC (Auto) Urine Creatinine 12/12/19 12/12/19 12/12/19 00:03 05:53 05:53 WBC RBC Hgb 8.8 L Hct 27.6 L MCHC RDW MCV MCH Lymph % (Auto) [place] % (Auto) [place] # Eos # Lymph # (Auto) [place] # (Auto) Eos # (Auto) Seg Neutrophils % Seg Neuts % (Manual) Baso # (Auto) Lymphocytes % (Manual) Monocytes % (Manual) Eosinophils % (Manual) Basophils % (Manual) Seg Neutrophils # Seg Neutrophils # Man Lymphocytes # (Manual) Monocytes # (Manual) Eosinophils # (Manual) Nucleated RBC % Basophils # (Manual) PT INR APTT Heparin Anti-Xa Level 0.22 L ABG pH POC ABG pO2 ABG pO2 ABG HCO3 ABG O2 Saturation ABG Base Excess POC ABG pCO2 ABG Hemoglobin ABG Oxyhemoglobin ABG Chloride ABG Glucose Oxyhemoglobin Sodium Potassium Chloride Carbon Dioxide BUN Creatinine Glucose POC Glucose 116 H Lactic Acid Calcium Phosphorus Magnesium AST ALT Lactate Dehydrogenase Total Bilirubin Direct Bilirubin CK-MB (CK-2) C-Reactive Protein NT-Pro-B Natriuret Pep Total Protein Albumin Arterial Blood Glucose Urine WBC (Auto) Urine Creatinine 12/12/19 12/12/19 12/12/19 09:38 12:18 17:44 WBC RBC Hgb Hct MCHC RDW MCV MCH Lymph % (Auto) [place] % (Auto) [place] # Eos # Lymph # (Auto) [place] # (Auto) Eos # (Auto) Seg Neutrophils % Seg Neuts % (Manual) Baso # (Auto) Lymphocytes % (Manual) Monocytes % (Manual) Eosinophils % (Manual) Basophils % (Manual) Seg Neutrophils # Seg Neutrophils # Man Lymphocytes # (Manual) Monocytes # (Manual) Eosinophils # (Manual) Nucleated RBC % Basophils # (Manual) PT INR APTT Heparin Anti-Xa Level ABG pH POC ABG pO2 ABG pO2 ABG HCO3 ABG O2 Saturation ABG Base Excess POC ABG pCO2 ABG Hemoglobin ABG Oxyhemoglobin ABG Chloride ABG Glucose Oxyhemoglobin Sodium Potassium Chloride Carbon Dioxide BUN Creatinine Glucose POC Glucose 115 H 146 H 146 H Lactic Acid Calcium Phosphorus Magnesium AST ALT Lactate Dehydrogenase Total Bilirubin Direct Bilirubin CK-MB (CK-2) C-Reactive Protein NT-Pro-B Natriuret Pep Total Protein Albumin Arterial Blood Glucose Urine WBC (Auto) Urine Creatinine 12/12/19 12/13/19 12/13/19 23:33 05:32 05:32 WBC 13.1 H RBC 3.27 L Hgb 9.5 L Hct 29.3 L MCHC RDW 15.6 H MCV MCH Lymph % (Auto) [place] % (Auto) [place] # Eos # Lymph # (Auto) [place] # (Auto) Eos # (Auto) Seg Neutrophils % Seg Neuts % (Manual) 74.0 H Baso # (Auto) Lymphocytes % (Manual) 8.0 L Monocytes % (Manual) 9.0 H Eosinophils % (Manual) 5.0 H Basophils % (Manual) Seg Neutrophils # Seg Neutrophils # Man 9.7 H Lymphocytes # (Manual) 1.0 L Monocytes # (Manual) 1.2 H Eosinophils # (Manual) 0.7 H Nucleated RBC % Basophils # (Manual) PT INR APTT Heparin Anti-Xa Level 0.20 L ABG pH POC ABG pO2 ABG pO2 ABG HCO3 ABG O2 Saturation ABG Base Excess POC ABG pCO2 ABG Hemoglobin ABG Oxyhemoglobin ABG Chloride ABG Glucose Oxyhemoglobin Sodium Potassium Chloride Carbon Dioxide BUN Creatinine Glucose POC Glucose 126 H Lactic Acid Calcium Phosphorus Magnesium AST ALT Lactate Dehydrogenase Total Bilirubin Direct Bilirubin CK-MB (CK-2) C-Reactive Protein NT-Pro-B Natriuret Pep Total Protein Albumin Arterial Blood Glucose Urine WBC (Auto) Urine Creatinine 12/13/19 12/13/19 12/13/19 05:32 05:46 11:57 WBC RBC Hgb Hct MCHC RDW MCV MCH Lymph % (Auto) [place] % (Auto) [place] # Eos # Lymph # (Auto) [place] # (Auto) Eos # (Auto) Seg Neutrophils % Seg Neuts % (Manual) Baso # (Auto) Lymphocytes % (Manual) Monocytes % (Manual) Eosinophils % (Manual) Basophils % (Manual) Seg Neutrophils # Seg Neutrophils # Man Lymphocytes # (Manual) Monocytes # (Manual) Eosinophils # (Manual) Nucleated RBC % Basophils # (Manual) PT INR APTT Heparin Anti-Xa Level ABG pH POC ABG pO2 ABG pO2 ABG HCO3 ABG O2 Saturation ABG Base Excess POC ABG pCO2 ABG Hemoglobin ABG Oxyhemoglobin ABG Chloride ABG Glucose Oxyhemoglobin Sodium Potassium Chloride Carbon Dioxide 31 H BUN Creatinine 0.6 L Glucose 114 H POC Glucose 118 H 133 H Lactic Acid Calcium Phosphorus Magnesium AST ALT Lactate Dehydrogenase Total Bilirubin Direct Bilirubin CK-MB (CK-2) C-Reactive Protein NT-Pro-B Natriuret Pep Total Protein Albumin Arterial Blood Glucose Urine WBC (Auto) Urine Creatinine 12/13/19 12/13/19 12/14/19 17:44 23:46 05:32 WBC RBC Hgb Hct MCHC RDW MCV MCH Lymph % (Auto) [place] % (Auto) [place] # Eos # Lymph # (Auto) [place] # (Auto) Eos # (Auto) Seg Neutrophils % Seg Neuts % (Manual) Baso # (Auto) Lymphocytes % (Manual) Monocytes % (Manual) Eosinophils % (Manual) Basophils % (Manual) Seg Neutrophils # Seg Neutrophils # Man Lymphocytes # (Manual) Monocytes # (Manual) Eosinophils # (Manual) Nucleated RBC % Basophils # (Manual) PT INR APTT Heparin Anti-Xa Level ABG pH POC ABG pO2 ABG pO2 ABG HCO3 ABG O2 Saturation ABG Base Excess POC ABG pCO2 ABG Hemoglobin ABG Oxyhemoglobin ABG Chloride ABG Glucose Oxyhemoglobin Sodium Potassium Chloride Carbon Dioxide BUN Creatinine Glucose POC Glucose 161 H 126 H 139 H Lactic Acid Calcium Phosphorus Magnesium AST ALT Lactate Dehydrogenase Total Bilirubin Direct Bilirubin CK-MB (CK-2) C-Reactive Protein NT-Pro-B Natriuret Pep Total Protein Albumin Arterial Blood Glucose Urine WBC (Auto) Urine Creatinine 12/14/19 12/14/19 12/14/19 06:03 06:03 09:37 WBC RBC Hgb 9.6 L Hct 30.4 L MCHC RDW MCV MCH Lymph % (Auto) [place] % (Auto) [place] # Eos # Lymph # (Auto) [place] # (Auto) Eos # (Auto) Seg Neutrophils % Seg Neuts % (Manual) Baso # (Auto) Lymphocytes % (Manual) Monocytes % (Manual) Eosinophils % (Manual) Basophils % (Manual) Seg Neutrophils # Seg Neutrophils # Man Lymphocytes # (Manual) Monocytes # (Manual) Eosinophils # (Manual) Nucleated RBC % Basophils # (Manual) PT INR APTT Heparin Anti-Xa Level 0.24 L ABG pH POC ABG pO2 ABG pO2 ABG HCO3 ABG O2 Saturation ABG Base Excess POC ABG pCO2 ABG Hemoglobin ABG Oxyhemoglobin ABG Chloride ABG Glucose Oxyhemoglobin Sodium Potassium Chloride Carbon Dioxide BUN Creatinine 0.6 L Glucose 162 H POC Glucose Lactic Acid Calcium Phosphorus Magnesium AST 71 H ALT 118 H Lactate Dehydrogenase Total Bilirubin Direct Bilirubin CK-MB (CK-2) C-Reactive Protein NT-Pro-B Natriuret Pep Total Protein 6.2 L Albumin 2.3 L Arterial Blood Glucose Urine WBC (Auto) Urine Creatinine 12/14/19 12/14/19 12/15/19 12:06 18:18 00:19 WBC RBC Hgb Hct MCHC RDW MCV MCH Lymph % (Auto) [place] % (Auto) [place] # Eos # Lymph # (Auto) [place] # (Auto) Eos # (Auto) Seg Neutrophils % Seg Neuts % (Manual) Baso # (Auto) Lymphocytes % (Manual) Monocytes % (Manual) Eosinophils % (Manual) Basophils % (Manual) Seg Neutrophils # Seg Neutrophils # Man Lymphocytes # (Manual) Monocytes # (Manual) Eosinophils # (Manual) Nucleated RBC % Basophils # (Manual) PT INR APTT Heparin Anti-Xa Level ABG pH POC ABG pO2 ABG pO2 ABG HCO3 ABG O2 Saturation ABG Base Excess POC ABG pCO2 ABG Hemoglobin ABG Oxyhemoglobin ABG Chloride ABG Glucose Oxyhemoglobin Sodium Potassium Chloride Carbon Dioxide BUN Creatinine Glucose POC Glucose 147 H 166 H 123 H Lactic Acid Calcium Phosphorus Magnesium AST ALT Lactate Dehydrogenase Total Bilirubin Direct Bilirubin CK-MB (CK-2) C-Reactive Protein NT-Pro-B Natriuret Pep Total Protein Albumin Arterial Blood Glucose Urine WBC (Auto) Urine Creatinine 12/15/19 12/15/19 12/15/19 05:28 05:29 05:29 WBC 14.9 H RBC 3.19 L Hgb 9.1 L Hct 28.7 L MCHC RDW 16.0 H MCV MCH Lymph % (Auto) [place] % (Auto) [place] # Eos # Lymph # (Auto) [place] # (Auto) Eos # (Auto) Seg Neutrophils % Seg Neuts % (Manual) Baso # (Auto) Lymphocytes % (Manual) Monocytes % (Manual) Eosinophils % (Manual) Basophils % (Manual) Seg Neutrophils # Seg Neutrophils # Man Lymphocytes # (Manual) Monocytes # (Manual) Eosinophils # (Manual) Nucleated RBC % Basophils # (Manual) PT INR APTT Heparin Anti-Xa Level 0.19 L ABG pH POC ABG pO2 ABG pO2 ABG HCO3 ABG O2 Saturation ABG Base Excess POC ABG pCO2 ABG Hemoglobin ABG Oxyhemoglobin ABG Chloride ABG Glucose Oxyhemoglobin Sodium Potassium Chloride Carbon Dioxide BUN Creatinine 0.6 L Glucose 110 H POC Glucose Lactic Acid Calcium Phosphorus Magnesium AST ALT Lactate Dehydrogenase Total Bilirubin Direct Bilirubin CK-MB (CK-2) C-Reactive Protein NT-Pro-B Natriuret Pep Total Protein Albumin Arterial Blood Glucose Urine WBC (Auto) Urine Creatinine 12/15/19 12/15/19 12/15/19 05:53 11:50 17:26 WBC RBC Hgb Hct MCHC RDW MCV MCH Lymph % (Auto) [place] % (Auto) [place] # Eos # Lymph # (Auto) [place] # (Auto) Eos # (Auto) Seg Neutrophils % Seg Neuts % (Manual) Baso # (Auto) Lymphocytes % (Manual) Monocytes % (Manual) Eosinophils % (Manual) Basophils % (Manual) Seg Neutrophils # Seg Neutrophils # Man Lymphocytes # (Manual) Monocytes # (Manual) Eosinophils # (Manual) Nucleated RBC % Basophils # (Manual) PT INR APTT Heparin Anti-Xa Level ABG pH POC ABG pO2 ABG pO2 ABG HCO3 ABG O2 Saturation ABG Base Excess POC ABG pCO2 ABG Hemoglobin ABG Oxyhemoglobin ABG Chloride ABG Glucose Oxyhemoglobin Sodium Potassium Chloride Carbon Dioxide BUN Creatinine Glucose POC Glucose 119 H 132 H 128 H Lactic Acid Calcium Phosphorus Magnesium AST ALT Lactate Dehydrogenase Total Bilirubin Direct Bilirubin CK-MB (CK-2) C-Reactive Protein NT-Pro-B Natriuret Pep Total Protein Albumin Arterial Blood Glucose Urine WBC (Auto) Urine Creatinine 12/15/19 12/16/19 12/16/19 23:11 05:30 05:46 WBC RBC Hgb 8.8 L Hct 27.9 L MCHC RDW MCV MCH Lymph % (Auto) [place] % (Auto) [place] # Eos # Lymph # (Auto) [place] # (Auto) Eos # (Auto) Seg Neutrophils % Seg Neuts % (Manual) Baso # (Auto) Lymphocytes % (Manual) Monocytes % (Manual) Eosinophils % (Manual) Basophils % (Manual) Seg Neutrophils # Seg Neutrophils # Man Lymphocytes # (Manual) Monocytes # (Manual) Eosinophils # (Manual) Nucleated RBC % Basophils # (Manual) PT INR APTT Heparin Anti-Xa Level ABG pH POC ABG pO2 ABG pO2 ABG HCO3 ABG O2 Saturation ABG Base Excess POC ABG pCO2 ABG Hemoglobin ABG Oxyhemoglobin ABG Chloride ABG Glucose Oxyhemoglobin Sodium Potassium Chloride Carbon Dioxide BUN Creatinine Glucose POC Glucose 150 H 134 H Lactic Acid Calcium Phosphorus Magnesium AST ALT Lactate Dehydrogenase Total Bilirubin Direct Bilirubin CK-MB (CK-2) C-Reactive Protein NT-Pro-B Natriuret Pep Total Protein Albumin Arterial Blood Glucose Urine WBC (Auto) Urine Creatinine 12/16/19 12/16/19 12/16/19 05:46 05:46 11:44 WBC RBC Hgb Hct MCHC RDW MCV MCH Lymph % (Auto) [place] % (Auto) [place] # Eos # Lymph # (Auto) [place] # (Auto) Eos # (Auto) Seg Neutrophils % Seg Neuts % (Manual) Baso # (Auto) Lymphocytes % (Manual) Monocytes % (Manual) Eosinophils % (Manual) Basophils % (Manual) Seg Neutrophils # Seg Neutrophils # Man Lymphocytes # (Manual) Monocytes # (Manual) Eosinophils # (Manual) Nucleated RBC % Basophils # (Manual) PT INR APTT Heparin Anti-Xa Level 0.20 L ABG pH POC ABG pO2 ABG pO2 ABG HCO3 ABG O2 Saturation ABG Base Excess POC ABG pCO2 ABG Hemoglobin ABG Oxyhemoglobin ABG Chloride ABG Glucose Oxyhemoglobin Sodium Potassium Chloride Carbon Dioxide 31 H BUN Creatinine 0.5 L Glucose 147 H POC Glucose 164 H Lactic Acid Calcium Phosphorus Magnesium AST ALT Lactate Dehydrogenase Total Bilirubin Direct Bilirubin CK-MB (CK-2) C-Reactive Protein NT-Pro-B Natriuret Pep Total Protein Albumin Arterial Blood Glucose Urine WBC (Auto) Urine Creatinine 12/16/19 12/16/19 12/17/19 17:17 23:49 05:30 WBC 13.9 H RBC 3.27 L Hgb 9.4 L Hct 29.2 L MCHC RDW 16.0 H MCV MCH Lymph % (Auto) [place] % (Auto) 8.8 H [place] # Eos # Lymph # (Auto) [place] # (Auto) 1.2 H Eos # (Auto) 0.5 H Seg Neutrophils % 70.5 H Seg Neuts % (Manual) Baso # (Auto) 0.2 H Lymphocytes % (Manual) Monocytes % (Manual) Eosinophils % (Manual) Basophils % (Manual) Seg Neutrophils # 9.8 H Seg Neutrophils # Man Lymphocytes # (Manual) Monocytes # (Manual) Eosinophils # (Manual) Nucleated RBC % Basophils # (Manual) PT INR APTT Heparin Anti-Xa Level ABG pH POC ABG pO2 ABG pO2 ABG HCO3 ABG O2 Saturation ABG Base Excess POC ABG pCO2 ABG Hemoglobin ABG Oxyhemoglobin ABG Chloride ABG Glucose Oxyhemoglobin Sodium Potassium Chloride Carbon Dioxide BUN Creatinine Glucose POC Glucose 162 H 144 H Lactic Acid Calcium Phosphorus Magnesium AST ALT Lactate Dehydrogenase Total Bilirubin Direct Bilirubin CK-MB (CK-2) C-Reactive Protein NT-Pro-B Natriuret Pep Total Protein Albumin Arterial Blood Glucose Urine WBC (Auto) Urine Creatinine 12/17/19 12/17/19 12/17/19 05:30 06:06 11:50 WBC RBC Hgb Hct MCHC RDW MCV MCH Lymph % (Auto) [place] % (Auto) [place] # Eos # Lymph # (Auto) [place] # (Auto) Eos # (Auto) Seg Neutrophils % Seg Neuts % (Manual) Baso # (Auto) Lymphocytes % (Manual) Monocytes % (Manual) Eosinophils % (Manual) Basophils % (Manual) Seg Neutrophils # Seg Neutrophils # Man Lymphocytes # (Manual) Monocytes # (Manual) Eosinophils # (Manual) Nucleated RBC % Basophils # (Manual) PT INR APTT Heparin Anti-Xa Level ABG pH POC ABG pO2 ABG pO2 ABG HCO3 ABG O2 Saturation ABG Base Excess POC ABG pCO2 ABG Hemoglobin ABG Oxyhemoglobin ABG Chloride ABG Glucose Oxyhemoglobin Sodium Potassium Chloride 97.4 L Carbon Dioxide 32 H BUN Creatinine 0.5 L Glucose 135 H POC Glucose 151 H 140 H Lactic Acid Calcium Phosphorus Magnesium AST ALT Lactate Dehydrogenase Total Bilirubin Direct Bilirubin CK-MB (CK-2) C-Reactive Protein NT-Pro-B Natriuret Pep Total Protein Albumin Arterial Blood Glucose Urine WBC (Auto) Urine Creatinine 12/17/19 12/17/19 12/18/19 17:50 23:46 05:17 WBC RBC Hgb 8.8 L Hct 28.0 L MCHC RDW MCV MCH Lymph % (Auto) [place] % (Auto) [place] # Eos # Lymph # (Auto) [place] # (Auto) Eos # (Auto) Seg Neutrophils % Seg Neuts % (Manual) Baso # (Auto) Lymphocytes % (Manual) Monocytes % (Manual) Eosinophils % (Manual) Basophils % (Manual) Seg Neutrophils # Seg Neutrophils # Man Lymphocytes # (Manual) Monocytes # (Manual) Eosinophils # (Manual) Nucleated RBC % Basophils # (Manual) PT INR APTT Heparin Anti-Xa Level ABG pH POC ABG pO2 ABG pO2 ABG HCO3 ABG O2 Saturation ABG Base Excess POC ABG pCO2 ABG Hemoglobin ABG Oxyhemoglobin ABG Chloride ABG Glucose Oxyhemoglobin Sodium Potassium Chloride Carbon Dioxide BUN Creatinine Glucose POC Glucose 158 H 150 H Lactic Acid Calcium Phosphorus Magnesium AST ALT Lactate Dehydrogenase Total Bilirubin Direct Bilirubin CK-MB (CK-2) C-Reactive Protein NT-Pro-B Natriuret Pep Total Protein Albumin Arterial Blood Glucose Urine WBC (Auto) Urine Creatinine 12/18/19 12/18/19 12/18/19 05:17 05:49 11:12 WBC RBC Hgb Hct MCHC RDW MCV MCH Lymph % (Auto) [place] % (Auto) [place] # Eos # Lymph # (Auto) [place] # (Auto) Eos # (Auto) Seg Neutrophils % Seg Neuts % (Manual) Baso # (Auto) Lymphocytes % (Manual) Monocytes % (Manual) Eosinophils % (Manual) Basophils % (Manual) Seg Neutrophils # Seg Neutrophils # Man Lymphocytes # (Manual) Monocytes # (Manual) Eosinophils # (Manual) Nucleated RBC % Basophils # (Manual) PT INR APTT Heparin Anti-Xa Level 0.16 L ABG pH POC ABG pO2 ABG pO2 ABG HCO3 ABG O2 Saturation ABG Base Excess POC ABG pCO2 ABG Hemoglobin ABG Oxyhemoglobin ABG Chloride ABG Glucose Oxyhemoglobin Sodium Potassium Chloride Carbon Dioxide BUN Creatinine Glucose POC Glucose 127 H 191 H Lactic Acid Calcium Phosphorus Magnesium AST ALT Lactate Dehydrogenase Total Bilirubin Direct Bilirubin CK-MB (CK-2) C-Reactive Protein NT-Pro-B Natriuret Pep Total Protein Albumin Arterial Blood Glucose Urine WBC (Auto) Urine Creatinine 12/18/19 12/18/19 12/19/19 17:03 20:16 00:08 WBC RBC Hgb Hct MCHC RDW MCV MCH Lymph % (Auto) [place] % (Auto) [place] # Eos # Lymph # (Auto) [place] # (Auto) Eos # (Auto) Seg Neutrophils % Seg Neuts % (Manual) Baso # (Auto) Lymphocytes % (Manual) Monocytes % (Manual) Eosinophils % (Manual) Basophils % (Manual) Seg Neutrophils # Seg Neutrophils # Man Lymphocytes # (Manual) Monocytes # (Manual) Eosinophils # (Manual) Nucleated RBC % Basophils # (Manual) PT INR APTT Heparin Anti-Xa Level ABG pH POC ABG pO2 ABG pO2 ABG HCO3 ABG O2 Saturation ABG Base Excess POC ABG pCO2 ABG Hemoglobin ABG Oxyhemoglobin ABG Chloride ABG Glucose Oxyhemoglobin Sodium Potassium Chloride Carbon Dioxide BUN Creatinine Glucose POC Glucose 133 H 128 H 129 H Lactic Acid Calcium Phosphorus Magnesium AST ALT Lactate Dehydrogenase Total Bilirubin Direct Bilirubin CK-MB (CK-2) C-Reactive Protein NT-Pro-B Natriuret Pep Total Protein Albumin Arterial Blood Glucose Urine WBC (Auto) Urine Creatinine 12/19/19 12/19/19 12/19/19 04:45 04:45 05:35 WBC RBC Hgb Hct MCHC RDW MCV MCH Lymph % (Auto) [place] % (Auto) [place] # Eos # Lymph # (Auto) [place] # (Auto) Eos # (Auto) Seg Neutrophils % Seg Neuts % (Manual) Baso # (Auto) Lymphocytes % (Manual) Monocytes % (Manual) Eosinophils % (Manual) Basophils % (Manual) Seg Neutrophils # Seg Neutrophils # Man Lymphocytes # (Manual) Monocytes # (Manual) Eosinophils # (Manual) Nucleated RBC % Basophils # (Manual) PT INR APTT Heparin Anti-Xa Level 0.17 L ABG pH POC ABG pO2 ABG pO2 ABG HCO3 ABG O2 Saturation ABG Base Excess POC ABG pCO2 ABG Hemoglobin ABG Oxyhemoglobin ABG Chloride ABG Glucose Oxyhemoglobin Sodium Potassium Chloride Carbon Dioxide BUN Creatinine Glucose POC Glucose 120 H Lactic Acid Calcium Phosphorus Magnesium AST ALT Lactate Dehydrogenase 228 H Total Bilirubin Direct Bilirubin CK-MB (CK-2) C-Reactive Protein NT-Pro-B Natriuret Pep Total Protein Albumin Arterial Blood Glucose Urine WBC (Auto) Urine Creatinine 12/19/19 12/19/19 12/19/19 09:20 11:32 11:32 WBC 14.6 H RBC 3.08 L Hgb 9.0 L Hct 26.8 L MCHC RDW 15.9 H MCV MCH Lymph % (Auto) [place] % (Auto) [place] # Eos # Lymph # (Auto) [place] # (Auto) Eos # (Auto) Seg Neutrophils % Seg Neuts % (Manual) 82.0 H Baso # (Auto) Lymphocytes % (Manual) 10.0 L Monocytes % (Manual) Eosinophils % (Manual) Basophils % (Manual) Seg Neutrophils # Seg Neutrophils # Man 12.0 H Lymphocytes # (Manual) Monocytes # (Manual) 0.9 H Eosinophils # (Manual) Nucleated RBC % 1.0 H Basophils # (Manual) PT INR APTT Heparin Anti-Xa Level ABG pH 7.451 H POC ABG pO2 ABG pO2 62.6 L ABG HCO3 33.2 H ABG O2 Saturation 93.8 L ABG Base Excess 8.3 H POC ABG pCO2 ABG Hemoglobin 8.3 L ABG Oxyhemoglobin ABG Chloride ABG Glucose Oxyhemoglobin 91.9 L Sodium Potassium Chloride 95.0 L Carbon Dioxide 33 H BUN 22 H Creatinine 0.6 L Glucose 150 H POC Glucose Lactic Acid Calcium Phosphorus Magnesium AST ALT Lactate Dehydrogenase Total Bilirubin Direct Bilirubin CK-MB (CK-2) C-Reactive Protein NT-Pro-B Natriuret Pep Total Protein 6.2 L Albumin 2.4 L Arterial Blood Glucose Urine WBC (Auto) Urine Creatinine 12/19/19 12/19/19 12/20/19 11:56 18:17 00:09 WBC RBC Hgb Hct MCHC RDW MCV MCH Lymph % (Auto) [place] % (Auto) [place] # Eos # Lymph # (Auto) [place] # (Auto) Eos # (Auto) Seg Neutrophils % Seg Neuts % (Manual) Baso # (Auto) Lymphocytes % (Manual) Monocytes % (Manual) Eosinophils % (Manual) Basophils % (Manual) Seg Neutrophils # Seg Neutrophils # Man Lymphocytes # (Manual) Monocytes # (Manual) Eosinophils # (Manual) Nucleated RBC % Basophils # (Manual) PT INR APTT Heparin Anti-Xa Level ABG pH POC ABG pO2 ABG pO2 ABG HCO3 ABG O2 Saturation ABG Base Excess POC ABG pCO2 ABG Hemoglobin ABG Oxyhemoglobin ABG Chloride ABG Glucose Oxyhemoglobin Sodium Potassium Chloride Carbon Dioxide BUN Creatinine Glucose POC Glucose 156 H 156 H 155 H Lactic Acid Calcium Phosphorus Magnesium AST ALT Lactate Dehydrogenase Total Bilirubin Direct Bilirubin CK-MB (CK-2) C-Reactive Protein NT-Pro-B Natriuret Pep Total Protein Albumin Arterial Blood Glucose Urine WBC (Auto) Urine Creatinine 12/20/19 12/20/19 12/20/19 05:26 06:02 18:17 WBC RBC Hgb Hct MCHC RDW MCV MCH Lymph % (Auto) [place] % (Auto) [place] # Eos # Lymph # (Auto) [place] # (Auto) Eos # (Auto) Seg Neutrophils % Seg Neuts % (Manual) Baso # (Auto) Lymphocytes % (Manual) Monocytes % (Manual) Eosinophils % (Manual) Basophils % (Manual) Seg Neutrophils # Seg Neutrophils # Man Lymphocytes # (Manual) Monocytes # (Manual) Eosinophils # (Manual) Nucleated RBC % Basophils # (Manual) PT INR APTT Heparin Anti-Xa Level 0.19 L ABG pH POC ABG pO2 ABG pO2 ABG HCO3 ABG O2 Saturation ABG Base Excess POC ABG pCO2 ABG Hemoglobin ABG Oxyhemoglobin ABG Chloride ABG Glucose Oxyhemoglobin Sodium Potassium Chloride Carbon Dioxide BUN Creatinine Glucose POC Glucose 137 H 128 H Lactic Acid Calcium Phosphorus Magnesium AST ALT Lactate Dehydrogenase Total Bilirubin Direct Bilirubin CK-MB (CK-2) C-Reactive Protein NT-Pro-B Natriuret Pep Total Protein Albumin Arterial Blood Glucose Urine WBC (Auto) Urine Creatinine 12/20/19 12/21/19 12/21/19 23:34 05:31 05:31 WBC 12.7 H RBC 3.09 L Hgb 8.9 L Hct 27.4 L MCHC RDW 15.8 H MCV MCH Lymph % (Auto) 12.1 L [place] % (Auto) 7.8 H [place] # Eos # Lymph # (Auto) [place] # (Auto) 1.0 H Eos # (Auto) Seg Neutrophils % 77.1 H Seg Neuts % (Manual) Baso # (Auto) Lymphocytes % (Manual) Monocytes % (Manual) Eosinophils % (Manual) Basophils % (Manual) Seg Neutrophils # 9.8 H Seg Neutrophils # Man Lymphocytes # (Manual) Monocytes # (Manual) Eosinophils # (Manual) Nucleated RBC % Basophils # (Manual) PT INR APTT Heparin Anti-Xa Level ABG pH POC ABG pO2 ABG pO2 ABG HCO3 ABG O2 Saturation ABG Base Excess POC ABG pCO2 ABG Hemoglobin ABG Oxyhemoglobin ABG Chloride ABG Glucose Oxyhemoglobin Sodium Potassium Chloride 96.9 L Carbon Dioxide 37 H BUN 27 H Creatinine 0.7 L Glucose 140 H POC Glucose 145 H Lactic Acid Calcium Phosphorus Magnesium AST ALT Lactate Dehydrogenase Total Bilirubin Direct Bilirubin CK-MB (CK-2) C-Reactive Protein NT-Pro-B Natriuret Pep Total Protein Albumin Arterial Blood Glucose Urine WBC (Auto) Urine Creatinine 12/21/19 12/21/19 12/21/19 05:38 10:13 11:51 WBC RBC Hgb Hct MCHC RDW MCV MCH Lymph % (Auto) [place] % (Auto) [place] # Eos # Lymph # (Auto) [place] # (Auto) Eos # (Auto) Seg Neutrophils % Seg Neuts % (Manual) Baso # (Auto) Lymphocytes % (Manual) Monocytes % (Manual) Eosinophils % (Manual) Basophils % (Manual) Seg Neutrophils # Seg Neutrophils # Man Lymphocytes # (Manual) Monocytes # (Manual) Eosinophils # (Manual) Nucleated RBC % Basophils # (Manual) PT INR APTT 23.9 L Heparin Anti-Xa Level < 0.10 L ABG pH POC ABG pO2 ABG pO2 ABG HCO3 ABG O2 Saturation ABG Base Excess POC ABG pCO2 ABG Hemoglobin ABG Oxyhemoglobin ABG Chloride ABG Glucose Oxyhemoglobin Sodium Potassium Chloride Carbon Dioxide BUN Creatinine Glucose POC Glucose 151 H 145 H Lactic Acid Calcium Phosphorus Magnesium AST ALT Lactate Dehydrogenase Total Bilirubin Direct Bilirubin CK-MB (CK-2) C-Reactive Protein NT-Pro-B Natriuret Pep Total Protein Albumin Arterial Blood Glucose Urine WBC (Auto) Urine Creatinine 12/21/19 12/22/19 12/22/19 17:16 00:01 01:33 WBC RBC Hgb Hct MCHC RDW MCV MCH Lymph % (Auto) [place] % (Auto) [place] # Eos # Lymph # (Auto) [place] # (Auto) Eos # (Auto) Seg Neutrophils % Seg Neuts % (Manual) Baso # (Auto) Lymphocytes % (Manual) Monocytes % (Manual) Eosinophils % (Manual) Basophils % (Manual) Seg Neutrophils # Seg Neutrophils # Man Lymphocytes # (Manual) Monocytes # (Manual) Eosinophils # (Manual) Nucleated RBC % Basophils # (Manual) PT INR APTT Heparin Anti-Xa Level 0.10 L ABG pH POC ABG pO2 ABG pO2 ABG HCO3 ABG O2 Saturation ABG Base Excess POC ABG pCO2 ABG Hemoglobin ABG Oxyhemoglobin ABG Chloride ABG Glucose Oxyhemoglobin Sodium Potassium Chloride Carbon Dioxide BUN Creatinine Glucose POC Glucose 167 H 179 H Lactic Acid Calcium Phosphorus Magnesium AST ALT Lactate Dehydrogenase Total Bilirubin Direct Bilirubin CK-MB (CK-2) C-Reactive Protein NT-Pro-B Natriuret Pep Total Protein Albumin Arterial Blood Glucose Urine WBC (Auto) Urine Creatinine 12/22/19 12/22/19 12/22/19 03:22 05:10 05:10 WBC 13.8 H RBC 3.20 L Hgb 8.9 L Hct 28.1 L MCHC RDW 15.9 H MCV MCH Lymph % (Auto) [place] % (Auto) [place] # Eos # Lymph # (Auto) [place] # (Auto) Eos # (Auto) Seg Neutrophils % Seg Neuts % (Manual) Baso # (Auto) Lymphocytes % (Manual) Monocytes % (Manual) Eosinophils % (Manual) Basophils % (Manual) Seg Neutrophils # Seg Neutrophils # Man Lymphocytes # (Manual) Monocytes # (Manual) Eosinophils # (Manual) Nucleated RBC % Basophils # (Manual) PT INR APTT Heparin Anti-Xa Level ABG pH POC ABG pO2 52.3 L ABG pO2 ABG HCO3 ABG O2 Saturation ABG Base Excess POC ABG pCO2 52.9 H ABG Hemoglobin 10.7 L ABG Oxyhemoglobin 84 L ABG Chloride ABG Glucose Oxyhemoglobin Sodium Potassium Chloride 96.6 L Carbon Dioxide BUN 25 H Creatinine 0.7 L Glucose 129 H POC Glucose Lactic Acid Calcium Phosphorus Magnesium AST ALT Lactate Dehydrogenase Total Bilirubin Direct Bilirubin CK-MB (CK-2) C-Reactive Protein NT-Pro-B Natriuret Pep Total Protein Albumin Arterial Blood Glucose Urine WBC (Auto) Urine Creatinine 12/22/19 12/22/19 12/22/19 05:18 12:32 12:43 WBC RBC Hgb Hct MCHC RDW MCV MCH Lymph % (Auto) [place] % (Auto) [place] # Eos # Lymph # (Auto) [place] # (Auto) Eos # (Auto) Seg Neutrophils % Seg Neuts % (Manual) Baso # (Auto) Lymphocytes % (Manual) Monocytes % (Manual) Eosinophils % (Manual) Basophils % (Manual) Seg Neutrophils # Seg Neutrophils # Man Lymphocytes # (Manual) Monocytes # (Manual) Eosinophils # (Manual) Nucleated RBC % Basophils # (Manual) PT INR APTT Heparin Anti-Xa Level 0.18 L ABG pH POC ABG pO2 ABG pO2 ABG HCO3 ABG O2 Saturation ABG Base Excess POC ABG pCO2 ABG Hemoglobin ABG Oxyhemoglobin ABG Chloride ABG Glucose Oxyhemoglobin Sodium Potassium Chloride Carbon Dioxide BUN Creatinine Glucose POC Glucose 131 H 208 H Lactic Acid Calcium Phosphorus Magnesium AST ALT Lactate Dehydrogenase Total Bilirubin Direct Bilirubin CK-MB (CK-2) C-Reactive Protein NT-Pro-B Natriuret Pep Total Protein Albumin Arterial Blood Glucose Urine WBC (Auto) Urine Creatinine 12/22/19 12/22/19 12/23/19 17:44 23:20 03:51 WBC 15.2 H RBC 3.43 L Hgb 9.6 L Hct 30.3 L MCHC RDW 15.9 H MCV MCH Lymph % (Auto) [place] % (Auto) [place] # Eos # Lymph # (Auto) [place] # (Auto) Eos # (Auto) Seg Neutrophils % Seg Neuts % (Manual) Baso # (Auto) Lymphocytes % (Manual) Monocytes % (Manual) Eosinophils % (Manual) Basophils % (Manual) Seg Neutrophils # Seg Neutrophils # Man Lymphocytes # (Manual) Monocytes # (Manual) Eosinophils # (Manual) Nucleated RBC % Basophils # (Manual) PT INR APTT Heparin Anti-Xa Level ABG pH POC ABG pO2 ABG pO2 ABG HCO3 ABG O2 Saturation ABG Base Excess POC ABG pCO2 ABG Hemoglobin ABG Oxyhemoglobin ABG Chloride ABG Glucose Oxyhemoglobin Sodium Potassium Chloride Carbon Dioxide BUN Creatinine Glucose POC Glucose 209 H 119 H Lactic Acid Calcium Phosphorus Magnesium AST ALT Lactate Dehydrogenase Total Bilirubin Direct Bilirubin CK-MB (CK-2) C-Reactive Protein NT-Pro-B Natriuret Pep Total Protein Albumin Arterial Blood Glucose Urine WBC (Auto) Urine Creatinine 12/23/19 12/23/19 12/23/19 03:51 05:31 12:09 WBC RBC Hgb Hct MCHC RDW MCV MCH Lymph % (Auto) [place] % (Auto) [place] # Eos # Lymph # (Auto) [place] # (Auto) Eos # (Auto) Seg Neutrophils % Seg Neuts % (Manual) Baso # (Auto) Lymphocytes % (Manual) Monocytes % (Manual) Eosinophils % (Manual) Basophils % (Manual) Seg Neutrophils # Seg Neutrophils # Man Lymphocytes # (Manual) Monocytes # (Manual) Eosinophils # (Manual) Nucleated RBC % Basophils # (Manual) PT INR APTT Heparin Anti-Xa Level ABG pH POC ABG pO2 ABG pO2 ABG HCO3 ABG O2 Saturation ABG Base Excess POC ABG pCO2 ABG Hemoglobin ABG Oxyhemoglobin ABG Chloride ABG Glucose Oxyhemoglobin Sodium Potassium Chloride 97.2 L Carbon Dioxide 31 H BUN 23 H Creatinine 0.6 L Glucose 153 H POC Glucose 149 H 144 H Lactic Acid Calcium Phosphorus Magnesium AST ALT Lactate Dehydrogenase Total Bilirubin Direct Bilirubin CK-MB (CK-2) C-Reactive Protein NT-Pro-B Natriuret Pep Total Protein Albumin Arterial Blood Glucose Urine WBC (Auto) Urine Creatinine 12/23/19 12/23/19 12/23/19 15:30 17:49 23:31 WBC RBC Hgb Hct MCHC RDW MCV MCH Lymph % (Auto) [place] % (Auto) [place] # Eos # Lymph # (Auto) [place] # (Auto) Eos # (Auto) Seg Neutrophils % Seg Neuts % (Manual) Baso # (Auto) Lymphocytes % (Manual) Monocytes % (Manual) Eosinophils % (Manual) Basophils % (Manual) Seg Neutrophils # Seg Neutrophils # Man Lymphocytes # (Manual) Monocytes # (Manual) Eosinophils # (Manual) Nucleated RBC % Basophils # (Manual) PT INR APTT Heparin Anti-Xa Level 0.21 L ABG pH POC ABG pO2 ABG pO2 ABG HCO3 ABG O2 Saturation ABG Base Excess POC ABG pCO2 ABG Hemoglobin ABG Oxyhemoglobin ABG Chloride ABG Glucose Oxyhemoglobin Sodium Potassium Chloride Carbon Dioxide BUN Creatinine Glucose POC Glucose 192 H 151 H Lactic Acid Calcium Phosphorus Magnesium AST ALT Lactate Dehydrogenase Total Bilirubin Direct Bilirubin CK-MB (CK-2) C-Reactive Protein NT-Pro-B Natriuret Pep Total Protein Albumin Arterial Blood Glucose Urine WBC (Auto) Urine Creatinine 12/24/19 12/24/19 12/24/19 05:34 12:13 16:50 WBC RBC Hgb Hct MCHC RDW MCV MCH Lymph % (Auto) [place] % (Auto) [place] # Eos # Lymph # (Auto) [place] # (Auto) Eos # (Auto) Seg Neutrophils % Seg Neuts % (Manual) Baso # (Auto) Lymphocytes % (Manual) Monocytes % (Manual) Eosinophils % (Manual) Basophils % (Manual) Seg Neutrophils # Seg Neutrophils # Man Lymphocytes # (Manual) Monocytes # (Manual) Eosinophils # (Manual) Nucleated RBC % Basophils # (Manual) PT INR APTT Heparin Anti-Xa Level 0.16 L ABG pH POC ABG pO2 ABG pO2 ABG HCO3 ABG O2 Saturation ABG Base Excess POC ABG pCO2 ABG Hemoglobin ABG Oxyhemoglobin ABG Chloride ABG Glucose Oxyhemoglobin Sodium Potassium Chloride Carbon Dioxide BUN Creatinine Glucose POC Glucose 145 H 124 H Lactic Acid Calcium Phosphorus Magnesium AST ALT Lactate Dehydrogenase Total Bilirubin Direct Bilirubin CK-MB (CK-2) C-Reactive Protein NT-Pro-B Natriuret Pep Total Protein Albumin Arterial Blood Glucose Urine WBC (Auto) Urine Creatinine 12/24/19 12/25/19 12/25/19 17:53 00:14 04:18 WBC 12.9 H RBC 3.30 L Hgb 9.1 L Hct 28.8 L MCHC RDW 16.4 H MCV MCH Lymph % (Auto) [place] % (Auto) 7.8 H [place] # Eos # Lymph # (Auto) [place] # (Auto) 1.0 H Eos # (Auto) Seg Neutrophils % 75.5 H Seg Neuts % (Manual) Baso # (Auto) Lymphocytes % (Manual) Monocytes % (Manual) Eosinophils % (Manual) Basophils % (Manual) Seg Neutrophils # 9.7 H Seg Neutrophils # Man Lymphocytes # (Manual) Monocytes # (Manual) Eosinophils # (Manual) Nucleated RBC % Basophils # (Manual) PT INR APTT Heparin Anti-Xa Level ABG pH POC ABG pO2 ABG pO2 ABG HCO3 ABG O2 Saturation ABG Base Excess POC ABG pCO2 ABG Hemoglobin ABG Oxyhemoglobin ABG Chloride ABG Glucose Oxyhemoglobin Sodium Potassium Chloride Carbon Dioxide BUN Creatinine Glucose POC Glucose 164 H 148 H Lactic Acid Calcium Phosphorus Magnesium AST ALT Lactate Dehydrogenase Total Bilirubin Direct Bilirubin CK-MB (CK-2) C-Reactive Protein NT-Pro-B Natriuret Pep Total Protein Albumin Arterial Blood Glucose Urine WBC (Auto) Urine Creatinine 12/25/19 12/25/19 12/25/19 04:18 05:38 11:44 WBC RBC Hgb Hct MCHC RDW MCV MCH Lymph % (Auto) [place] % (Auto) [place] # Eos # Lymph # (Auto) [place] # (Auto) Eos # (Auto) Seg Neutrophils % Seg Neuts % (Manual) Baso # (Auto) Lymphocytes % (Manual) Monocytes % (Manual) Eosinophils % (Manual) Basophils % (Manual) Seg Neutrophils # Seg Neutrophils # Man Lymphocytes # (Manual) Monocytes # (Manual) Eosinophils # (Manual) Nucleated RBC % Basophils # (Manual) PT INR APTT Heparin Anti-Xa Level ABG pH POC ABG pO2 ABG pO2 ABG HCO3 ABG O2 Saturation ABG Base Excess POC ABG pCO2 ABG Hemoglobin ABG Oxyhemoglobin ABG Chloride ABG Glucose Oxyhemoglobin Sodium Potassium Chloride Carbon Dioxide 33 H BUN 27 H Creatinine 0.6 L Glucose 132 H POC Glucose 152 H 166 H Lactic Acid Calcium Phosphorus Magnesium AST ALT Lactate Dehydrogenase Total Bilirubin Direct Bilirubin CK-MB (CK-2) C-Reactive Protein NT-Pro-B Natriuret Pep Total Protein Albumin Arterial Blood Glucose Urine WBC (Auto) Urine Creatinine 12/25/19 12/26/19 12/26/19 18:29 00:17 00:18 WBC RBC Hgb Hct MCHC RDW MCV MCH Lymph % (Auto) [place] % (Auto) [place] # Eos # Lymph # (Auto) [place] # (Auto) Eos # (Auto) Seg Neutrophils % Seg Neuts % (Manual) Baso # (Auto) Lymphocytes % (Manual) Monocytes % (Manual) Eosinophils % (Manual) Basophils % (Manual) Seg Neutrophils # Seg Neutrophils # Man Lymphocytes # (Manual) Monocytes # (Manual) Eosinophils # (Manual) Nucleated RBC % Basophils # (Manual) PT INR APTT Heparin Anti-Xa Level ABG pH POC ABG pO2 ABG pO2 ABG HCO3 ABG O2 Saturation ABG Base Excess POC ABG pCO2 ABG Hemoglobin ABG Oxyhemoglobin ABG Chloride ABG Glucose Oxyhemoglobin Sodium Potassium Chloride 97.8 L Carbon Dioxide BUN 25 H Creatinine 0.6 L Glucose 140 H POC Glucose 194 H 151 H Lactic Acid Calcium Phosphorus Magnesium AST ALT Lactate Dehydrogenase Total Bilirubin Direct Bilirubin CK-MB (CK-2) C-Reactive Protein NT-Pro-B Natriuret Pep Total Protein Albumin Arterial Blood Glucose Urine WBC (Auto) Urine Creatinine 12/26/19 12/26/1920 05:36 11:41 17:50 WBC RBC Hgb Hct MCHC RDW MCV MCH Lymph % (Auto) [place] % (Auto) [place] # Eos # Lymph # (Auto) [place] # (Auto) Eos # (Auto) Seg Neutrophils % Seg Neuts % (Manual) Baso # (Auto) Lymphocytes % (Manual) Monocytes % (Manual) Eosinophils % (Manual) Basophils % (Manual) Seg Neutrophils # Seg Neutrophils # Man Lymphocytes # (Manual) Monocytes # (Manual) Eosinophils # (Manual) Nucleated RBC % Basophils # (Manual) PT INR APTT Heparin Anti-Xa Level ABG pH POC ABG pO2 ABG pO2 ABG HCO3 ABG O2 Saturation ABG Base Excess POC ABG pCO2 ABG Hemoglobin ABG Oxyhemoglobin ABG Chloride ABG Glucose Oxyhemoglobin Sodium Potassium Chloride Carbon Dioxide BUN Creatinine Glucose POC Glucose 156 H 148 H 139 H Lactic Acid Calcium Phosphorus Magnesium AST ALT Lactate Dehydrogenase Total Bilirubin Direct Bilirubin CK-MB (CK-2) C-Reactive Protein NT-Pro-B Natriuret Pep Total Protein Albumin Arterial Blood Glucose Urine WBC (Auto) Urine Creatinine 12/26/19 12/27/19 12/27/19 23:19 05:34 12:02 WBC RBC Hgb Hct MCHC RDW MCV MCH Lymph % (Auto) [place] % (Auto) [place] # Eos # Lymph # (Auto) [place] # (Auto) Eos # (Auto) Seg Neutrophils % Seg Neuts % (Manual) Baso # (Auto) Lymphocytes % (Manual) Monocytes % (Manual) Eosinophils % (Manual) Basophils % (Manual) Seg Neutrophils # Seg Neutrophils # Man Lymphocytes # (Manual) Monocytes # (Manual) Eosinophils # (Manual) Nucleated RBC % Basophils # (Manual) PT INR APTT Heparin Anti-Xa Level ABG pH POC ABG pO2 ABG pO2 ABG HCO3 ABG O2 Saturation ABG Base Excess POC ABG pCO2 ABG Hemoglobin ABG Oxyhemoglobin ABG Chloride ABG Glucose Oxyhemoglobin Sodium Potassium Chloride Carbon Dioxide BUN Creatinine Glucose POC Glucose 161 H 145 H 157 H Lactic Acid Calcium Phosphorus Magnesium AST ALT Lactate Dehydrogenase Total Bilirubin Direct Bilirubin CK-MB (CK-2) C-Reactive Protein NT-Pro-B Natriuret Pep Total Protein Albumin Arterial Blood Glucose Urine WBC (Auto) Urine Creatinine 12/27/19 12/27/19 12/27/19 17:35 20:11 23:00 WBC RBC Hgb Hct MCHC RDW MCV MCH Lymph % (Auto) [place] % (Auto) [place] # Eos # Lymph # (Auto) [place] # (Auto) Eos # (Auto) Seg Neutrophils % Seg Neuts % (Manual) Baso # (Auto) Lymphocytes % (Manual) Monocytes % (Manual) Eosinophils % (Manual) Basophils % (Manual) Seg Neutrophils # Seg Neutrophils # Man Lymphocytes # (Manual) Monocytes # (Manual) Eosinophils # (Manual) Nucleated RBC % Basophils # (Manual) PT INR APTT Heparin Anti-Xa Level 0.19 L ABG pH POC ABG pO2 ABG pO2 ABG HCO3 ABG O2 Saturation ABG Base Excess POC ABG pCO2 ABG Hemoglobin ABG Oxyhemoglobin ABG Chloride ABG Glucose Oxyhemoglobin Sodium Potassium Chloride Carbon Dioxide BUN Creatinine Glucose POC Glucose 158 H 155 H Lactic Acid Calcium Phosphorus Magnesium AST ALT Lactate Dehydrogenase Total Bilirubin Direct Bilirubin CK-MB (CK-2) C-Reactive Protein NT-Pro-B Natriuret Pep Total Protein Albumin Arterial Blood Glucose Urine WBC (Auto) Urine Creatinine 12/27/19 12/28/19 12/28/19 23:45 02:41 02:41 WBC 13.0 H RBC 3.48 L Hgb 9.5 L Hct 30.6 L MCHC 31 L RDW 16.6 H MCV MCH 27 L Lymph % (Auto) 13.0 L [place] % (Auto) 8.0 H [place] # Eos # Lymph # (Auto) [place] # (Auto) 1.0 H Eos # (Auto) Seg Neutrophils % 76.3 H Seg Neuts % (Manual) Baso # (Auto) Lymphocytes % (Manual) Monocytes % (Manual) Eosinophils % (Manual) Basophils % (Manual) Seg Neutrophils # 9.9 H Seg Neutrophils # Man Lymphocytes # (Manual) Monocytes # (Manual) Eosinophils # (Manual) Nucleated RBC % Basophils # (Manual) PT INR APTT Heparin Anti-Xa Level ABG pH POC ABG pO2 ABG pO2 ABG HCO3 ABG O2 Saturation ABG Base Excess POC ABG pCO2 ABG Hemoglobin ABG Oxyhemoglobin ABG Chloride ABG Glucose Oxyhemoglobin Sodium Potassium Chloride Carbon Dioxide BUN 22 H Creatinine 0.6 L Glucose 101 H POC Glucose 130 H Lactic Acid Calcium Phosphorus Magnesium AST ALT Lactate Dehydrogenase Total Bilirubin Direct Bilirubin CK-MB (CK-2) C-Reactive Protein NT-Pro-B Natriuret Pep Total Protein Albumin Arterial Blood Glucose Urine WBC (Auto) Urine Creatinine 12/28/19 12/28/19 12/28/19 06:00 12:34 18:13 WBC RBC Hgb Hct MCHC RDW MCV MCH Lymph % (Auto) [place] % (Auto) [place] # Eos # Lymph # (Auto) [place] # (Auto) Eos # (Auto) Seg Neutrophils % Seg Neuts % (Manual) Baso # (Auto) Lymphocytes % (Manual) Monocytes % (Manual) Eosinophils % (Manual) Basophils % (Manual) Seg Neutrophils # Seg Neutrophils # Man Lymphocytes # (Manual) Monocytes # (Manual) Eosinophils # (Manual) Nucleated RBC % Basophils # (Manual) PT INR APTT Heparin Anti-Xa Level ABG pH POC ABG pO2 ABG pO2 ABG HCO3 ABG O2 Saturation ABG Base Excess POC ABG pCO2 ABG Hemoglobin ABG Oxyhemoglobin ABG Chloride ABG Glucose Oxyhemoglobin Sodium Potassium Chloride Carbon Dioxide BUN Creatinine Glucose POC Glucose 150 H 161 H 128 H Lactic Acid Calcium Phosphorus Magnesium AST ALT Lactate Dehydrogenase Total Bilirubin Direct Bilirubin CK-MB (CK-2) C-Reactive Protein NT-Pro-B Natriuret Pep Total Protein Albumin Arterial Blood Glucose Urine WBC (Auto) Urine Creatinine 12/28/19 12/29/19 12/29/19 23:36 05:21 11:40 WBC RBC Hgb Hct MCHC RDW MCV MCH Lymph % (Auto) [place] % (Auto) [place] # Eos # Lymph # (Auto) [place] # (Auto) Eos # (Auto) Seg Neutrophils % Seg Neuts % (Manual) Baso # (Auto) Lymphocytes % (Manual) Monocytes % (Manual) Eosinophils % (Manual) Basophils % (Manual) Seg Neutrophils # Seg Neutrophils # Man Lymphocytes # (Manual) Monocytes # (Manual) Eosinophils # (Manual) Nucleated RBC % Basophils # (Manual) PT INR APTT Heparin Anti-Xa Level ABG pH POC ABG pO2 ABG pO2 ABG HCO3 ABG O2 Saturation ABG Base Excess POC ABG pCO2 ABG Hemoglobin ABG Oxyhemoglobin ABG Chloride ABG Glucose Oxyhemoglobin Sodium Potassium Chloride Carbon Dioxide BUN Creatinine Glucose POC Glucose 137 H 136 H 166 H Lactic Acid Calcium Phosphorus Magnesium AST ALT Lactate Dehydrogenase Total Bilirubin Direct Bilirubin CK-MB (CK-2) C-Reactive Protein NT-Pro-B Natriuret Pep Total Protein Albumin Arterial Blood Glucose Urine WBC (Auto) Urine Creatinine 12/29/19 12/29/19 12/29/19 17:23 19:21 23:38 WBC RBC Hgb Hct MCHC RDW MCV MCH Lymph % (Auto) [place] % (Auto) [place] # Eos # Lymph # (Auto) [place] # (Auto) Eos # (Auto) Seg Neutrophils % Seg Neuts % (Manual) Baso # (Auto) Lymphocytes % (Manual) Monocytes % (Manual) Eosinophils % (Manual) Basophils % (Manual) Seg Neutrophils # Seg Neutrophils # Man Lymphocytes # (Manual) Monocytes # (Manual) Eosinophils # (Manual) Nucleated RBC % Basophils # (Manual) PT INR APTT Heparin Anti-Xa Level 0.20 L ABG pH POC ABG pO2 ABG pO2 ABG HCO3 ABG O2 Saturation ABG Base Excess POC ABG pCO2 ABG Hemoglobin ABG Oxyhemoglobin ABG Chloride ABG Glucose Oxyhemoglobin Sodium Potassium Chloride Carbon Dioxide BUN Creatinine Glucose POC Glucose 144 H 141 H Lactic Acid Calcium Phosphorus Magnesium AST ALT Lactate Dehydrogenase Total Bilirubin Direct Bilirubin CK-MB (CK-2) C-Reactive Protein NT-Pro-B Natriuret Pep Total Protein Albumin Arterial Blood Glucose Urine WBC (Auto) Urine Creatinine 12/30/19 12/30/19 12/30/19 03:58 03:58 04:59 WBC RBC 3.54 L Hgb 9.8 L Hct 30.7 L MCHC RDW 16.8 H MCV MCH Lymph % (Auto) [place] % (Auto) [place] # Eos # Lymph # (Auto) [place] # (Auto) Eos # (Auto) Seg Neutrophils % Seg Neuts % (Manual) Baso # (Auto) Lymphocytes % (Manual) Monocytes % (Manual) Eosinophils % (Manual) Basophils % (Manual) Seg Neutrophils # Seg Neutrophils # Man Lymphocytes # (Manual) Monocytes # (Manual) Eosinophils # (Manual) Nucleated RBC % Basophils # (Manual) PT INR APTT Heparin Anti-Xa Level ABG pH POC ABG pO2 ABG pO2 ABG HCO3 29.8 H ABG O2 Saturation ABG Base Excess 4.8 H POC ABG pCO2 ABG Hemoglobin 11.2 L ABG Oxyhemoglobin ABG Chloride ABG Glucose Oxyhemoglobin 93.8 L Sodium Potassium Chloride 97.8 L Carbon Dioxide BUN 26 H Creatinine Glucose 168 H POC Glucose Lactic Acid Calcium Phosphorus Magnesium AST ALT Lactate Dehydrogenase Total Bilirubin Direct Bilirubin CK-MB (CK-2) C-Reactive Protein NT-Pro-B Natriuret Pep Total Protein Albumin Arterial Blood Glucose Urine WBC (Auto) Urine Creatinine 12/30/19 12/30/19 12/30/19 05:45 11:34 17:28 WBC RBC Hgb Hct MCHC RDW MCV MCH Lymph % (Auto) [place] % (Auto) [place] # Eos # Lymph # (Auto) [place] # (Auto) Eos # (Auto) Seg Neutrophils % Seg Neuts % (Manual) Baso # (Auto) Lymphocytes % (Manual) Monocytes % (Manual) Eosinophils % (Manual) Basophils % (Manual) Seg Neutrophils # Seg Neutrophils # Man Lymphocytes # (Manual) Monocytes # (Manual) Eosinophils # (Manual) Nucleated RBC % Basophils # (Manual) PT INR APTT Heparin Anti-Xa Level ABG pH POC ABG pO2 ABG pO2 ABG HCO3 ABG O2 Saturation ABG Base Excess POC ABG pCO2 ABG Hemoglobin ABG Oxyhemoglobin ABG Chloride ABG Glucose Oxyhemoglobin Sodium Potassium Chloride Carbon Dioxide BUN Creatinine Glucose POC Glucose 163 H 180 H 150 H Lactic Acid Calcium Phosphorus Magnesium AST ALT Lactate Dehydrogenase Total Bilirubin Direct Bilirubin CK-MB (CK-2) C-Reactive Protein NT-Pro-B Natriuret Pep Total Protein Albumin Arterial Blood Glucose Urine WBC (Auto) Urine Creatinine 12/30/19 12/31/19 12/31/19 23:43 04:55 05:07 WBC RBC Hgb Hct MCHC RDW MCV MCH Lymph % (Auto) [place] % (Auto) [place] # Eos # Lymph # (Auto) [place] # (Auto) Eos # (Auto) Seg Neutrophils % Seg Neuts % (Manual) Baso # (Auto) Lymphocytes % (Manual) Monocytes % (Manual) Eosinophils % (Manual) Basophils % (Manual) Seg Neutrophils # Seg Neutrophils # Man Lymphocytes # (Manual) Monocytes # (Manual) Eosinophils # (Manual) Nucleated RBC % Basophils # (Manual) PT INR APTT Heparin Anti-Xa Level ABG pH POC ABG pO2 ABG pO2 ABG HCO3 ABG O2 Saturation ABG Base Excess POC ABG pCO2 ABG Hemoglobin ABG Oxyhemoglobin ABG Chloride ABG Glucose Oxyhemoglobin Sodium Potassium 5.6 H D Chloride Carbon Dioxide BUN 33 H Creatinine Glucose 131 H POC Glucose 142 H 134 H Lactic Acid Calcium Phosphorus Magnesium AST ALT Lactate Dehydrogenase Total Bilirubin Direct Bilirubin CK-MB (CK-2) C-Reactive Protein NT-Pro-B Natriuret Pep Total Protein Albumin Arterial Blood Glucose Urine WBC (Auto) Urine Creatinine 12/31/19 12/31/19 12/31/19 11:30 17:19 17:36 WBC RBC Hgb Hct MCHC RDW MCV MCH Lymph % (Auto) [place] % (Auto) [place] # Eos # Lymph # (Auto) [place] # (Auto) Eos # (Auto) Seg Neutrophils % Seg Neuts % (Manual) Baso # (Auto) Lymphocytes % (Manual) Monocytes % (Manual) Eosinophils % (Manual) Basophils % (Manual) Seg Neutrophils # Seg Neutrophils # Man Lymphocytes # (Manual) Monocytes # (Manual) Eosinophils # (Manual) Nucleated RBC % Basophils # (Manual) PT INR APTT Heparin Anti-Xa Level ABG pH POC ABG pO2 ABG pO2 ABG HCO3 ABG O2 Saturation ABG Base Excess POC ABG pCO2 ABG Hemoglobin ABG Oxyhemoglobin ABG Chloride ABG Glucose Oxyhemoglobin Sodium Potassium Chloride Carbon Dioxide BUN 35 H Creatinine Glucose 156 H POC Glucose 158 H 181 H Lactic Acid Calcium Phosphorus Magnesium AST ALT Lactate Dehydrogenase Total Bilirubin Direct Bilirubin CK-MB (CK-2) C-Reactive Protein NT-Pro-B Natriuret Pep Total Protein Albumin Arterial Blood Glucose Urine WBC (Auto) Urine Creatinine 12/31/19 12/31/19 12/31/19 18:16 19:41 21:53 WBC RBC Hgb Hct MCHC RDW MCV MCH Lymph % (Auto) [place] % (Auto) [place] # Eos # Lymph # (Auto) [place] # (Auto) Eos # (Auto) Seg Neutrophils % Seg Neuts % (Manual) Baso # (Auto) Lymphocytes % (Manual) Monocytes % (Manual) Eosinophils % (Manual) Basophils % (Manual) Seg Neutrophils # Seg Neutrophils # Man Lymphocytes # (Manual) Monocytes # (Manual) Eosinophils # (Manual) Nucleated RBC % Basophils # (Manual) PT INR APTT Heparin Anti-Xa Level 0.20 L ABG pH POC ABG pO2 ABG pO2 ABG HCO3 ABG O2 Saturation ABG Base Excess POC ABG pCO2 ABG Hemoglobin ABG Oxyhemoglobin ABG Chloride ABG Glucose Oxyhemoglobin Sodium Potassium Chloride Carbon Dioxide BUN 34 H Creatinine Glucose 169 H POC Glucose 141 H Lactic Acid Calcium Phosphorus Magnesium AST ALT Lactate Dehydrogenase Total Bilirubin Direct Bilirubin CK-MB (CK-2) C-Reactive Protein NT-Pro-B Natriuret Pep Total Protein Albumin Arterial Blood Glucose Urine WBC (Auto) Urine Creatinine 12/31/19 01/01/20 01/01/20 23:51 05:17 10:40 WBC RBC Hgb Hct MCHC RDW MCV MCH Lymph % (Auto) [place] % (Auto) [place] # Eos # Lymph # (Auto) [place] # (Auto) Eos # (Auto) Seg Neutrophils % Seg Neuts % (Manual) Baso # (Auto) Lymphocytes % (Manual) Monocytes % (Manual) Eosinophils % (Manual) Basophils % (Manual) Seg Neutrophils # Seg Neutrophils # Man Lymphocytes # (Manual) Monocytes # (Manual) Eosinophils # (Manual) Nucleated RBC % Basophils # (Manual) PT INR APTT Heparin Anti-Xa Level ABG pH POC ABG pO2 ABG pO2 ABG HCO3 ABG O2 Saturation ABG Base Excess POC ABG pCO2 ABG Hemoglobin ABG Oxyhemoglobin ABG Chloride ABG Glucose Oxyhemoglobin Sodium Potassium Chloride Carbon Dioxide BUN 31 H Creatinine 0.7 L Glucose 137 H POC Glucose 131 H 155 H Lactic Acid Calcium Phosphorus Magnesium AST 73 H ALT 97 H Lactate Dehydrogenase Total Bilirubin Direct Bilirubin CK-MB (CK-2) C-Reactive Protein NT-Pro-B Natriuret Pep 3866 H Total Protein Albumin 2.8 L Arterial Blood Glucose Urine WBC (Auto) Urine Creatinine 01/01/20 01/01/20 01/01/20 12:26 15:33 17:53 WBC 14.3 H RBC 3.35 L Hgb 9.1 L Hct 28.8 L MCHC RDW 17.0 H MCV MCH 27 L Lymph % (Auto) 7.0 L [place] % (Auto) 7.6 H [place] # Eos # Lymph # (Auto) 1.0 L [place] # (Auto) 1.1 H Eos # (Auto) Seg Neutrophils % 83.3 H Seg Neuts % (Manual) Baso # (Auto) Lymphocytes % (Manual) Monocytes % (Manual) Eosinophils % (Manual) Basophils % (Manual) Seg Neutrophils # 12.0 H Seg Neutrophils # Man Lymphocytes # (Manual) Monocytes # (Manual) Eosinophils # (Manual) Nucleated RBC % Basophils # (Manual) PT INR APTT Heparin Anti-Xa Level ABG pH POC ABG pO2 ABG pO2 ABG HCO3 ABG O2 Saturation ABG Base Excess POC ABG pCO2 ABG Hemoglobin ABG Oxyhemoglobin ABG Chloride ABG Glucose Oxyhemoglobin Sodium Potassium Chloride Carbon Dioxide BUN Creatinine Glucose POC Glucose 128 H 128 H Lactic Acid Calcium Phosphorus Magnesium AST ALT Lactate Dehydrogenase Total Bilirubin Direct Bilirubin CK-MB (CK-2) C-Reactive Protein NT-Pro-B Natriuret Pep Total Protein Albumin Arterial Blood Glucose Urine WBC (Auto) Urine Creatinine 01/01/20 01/02/20 01/02/20 23:04 05:39 07:00 WBC RBC Hgb Hct MCHC RDW MCV MCH Lymph % (Auto) [place] % (Auto) [place] # Eos # Lymph # (Auto) [place] # (Auto) Eos # (Auto) Seg Neutrophils % Seg Neuts % (Manual) Baso # (Auto) Lymphocytes % (Manual) Monocytes % (Manual) Eosinophils % (Manual) Basophils % (Manual) Seg Neutrophils # Seg Neutrophils # Man Lymphocytes # (Manual) Monocytes # (Manual) Eosinophils # (Manual) Nucleated RBC % Basophils # (Manual) PT INR APTT Heparin Anti-Xa Level 0.13 L ABG pH POC ABG pO2 ABG pO2 ABG HCO3 ABG O2 Saturation ABG Base Excess POC ABG pCO2 ABG Hemoglobin ABG Oxyhemoglobin ABG Chloride ABG Glucose Oxyhemoglobin Sodium Potassium Chloride Carbon Dioxide BUN Creatinine Glucose POC Glucose 120 H 169 H Lactic Acid Calcium Phosphorus Magnesium AST ALT Lactate Dehydrogenase Total Bilirubin Direct Bilirubin CK-MB (CK-2) C-Reactive Protein NT-Pro-B Natriuret Pep Total Protein Albumin Arterial Blood Glucose Urine WBC (Auto) Urine Creatinine 01/02/20 01/02/20 01/02/20 12:15 14:06 17:58 WBC RBC Hgb Hct MCHC RDW MCV MCH Lymph % (Auto) [place] % (Auto) [place] # Eos # Lymph # (Auto) [place] # (Auto) Eos # (Auto) Seg Neutrophils % Seg Neuts % (Manual) Baso # (Auto) Lymphocytes % (Manual) Monocytes % (Manual) Eosinophils % (Manual) Basophils % (Manual) Seg Neutrophils # Seg Neutrophils # Man Lymphocytes # (Manual) Monocytes # (Manual) Eosinophils # (Manual) Nucleated RBC % Basophils # (Manual) PT INR APTT Heparin Anti-Xa Level < 0.10 L ABG pH POC ABG pO2 ABG pO2 ABG HCO3 ABG O2 Saturation ABG Base Excess POC ABG pCO2 ABG Hemoglobin ABG Oxyhemoglobin ABG Chloride ABG Glucose Oxyhemoglobin Sodium Potassium Chloride Carbon Dioxide BUN Creatinine Glucose POC Glucose 190 H 198 H Lactic Acid Calcium Phosphorus Magnesium AST ALT Lactate Dehydrogenase Total Bilirubin Direct Bilirubin CK-MB (CK-2) C-Reactive Protein NT-Pro-B Natriuret Pep Total Protein Albumin Arterial Blood Glucose Urine WBC (Auto) Urine Creatinine 01/02/20 01/02/20 01/03/20 21:43 23:33 05:42 WBC RBC Hgb Hct MCHC RDW MCV MCH Lymph % (Auto) [place] % (Auto) [place] # Eos # Lymph # (Auto) [place] # (Auto) Eos # (Auto) Seg Neutrophils % Seg Neuts % (Manual) Baso # (Auto) Lymphocytes % (Manual) Monocytes % (Manual) Eosinophils % (Manual) Basophils % (Manual) Seg Neutrophils # Seg Neutrophils # Man Lymphocytes # (Manual) Monocytes # (Manual) Eosinophils # (Manual) Nucleated RBC % Basophils # (Manual) PT INR APTT Heparin Anti-Xa Level 0.10 L ABG pH POC ABG pO2 ABG pO2 ABG HCO3 ABG O2 Saturation ABG Base Excess POC ABG pCO2 ABG Hemoglobin ABG Oxyhemoglobin ABG Chloride ABG Glucose Oxyhemoglobin Sodium Potassium Chloride Carbon Dioxide BUN Creatinine Glucose POC Glucose 180 H 163 H Lactic Acid Calcium Phosphorus Magnesium AST ALT Lactate Dehydrogenase Total Bilirubin Direct Bilirubin CK-MB (CK-2) C-Reactive Protein NT-Pro-B Natriuret Pep Total Protein Albumin Arterial Blood Glucose Urine WBC (Auto) Urine Creatinine 01/03/20 01/03/20 01/03/20 06:50 07:25 07:45 WBC 12.1 H RBC 3.35 L Hgb 9.0 L Hct 28.9 L MCHC 31 L RDW 16.6 H MCV MCH 27 L Lymph % (Auto) 13.0 L [place] % (Auto) 8.6 H [place] # Eos # Lymph # (Auto) [place] # (Auto) 1.0 H Eos # (Auto) Seg Neutrophils % 75.9 H Seg Neuts % (Manual) Baso # (Auto) Lymphocytes % (Manual) Monocytes % (Manual) Eosinophils % (Manual) Basophils % (Manual) Seg Neutrophils # 9.2 H Seg Neutrophils # Man Lymphocytes # (Manual) Monocytes # (Manual) Eosinophils # (Manual) Nucleated RBC % Basophils # (Manual) PT INR APTT Heparin Anti-Xa Level 0.29 L ABG pH POC ABG pO2 ABG pO2 ABG HCO3 ABG O2 Saturation ABG Base Excess POC ABG pCO2 ABG Hemoglobin ABG Oxyhemoglobin ABG Chloride ABG Glucose Oxyhemoglobin Sodium Potassium 3.3 L D Chloride Carbon Dioxide 35 H D BUN 23 H Creatinine 0.6 L Glucose 149 H POC Glucose Lactic Acid Calcium Phosphorus Magnesium AST ALT 88 H Lactate Dehydrogenase Total Bilirubin Direct Bilirubin CK-MB (CK-2) C-Reactive Protein NT-Pro-B Natriuret Pep Total Protein 6.2 L Albumin 2.9 L Arterial Blood Glucose Urine WBC (Auto) Urine Creatinine 01/03/20 01/03/20 01/03/20 12:05 17:42 18:30 WBC RBC Hgb Hct MCHC RDW MCV MCH Lymph % (Auto) [place] % (Auto) [place] # Eos # Lymph # (Auto) [place] # (Auto) Eos # (Auto) Seg Neutrophils % Seg Neuts % (Manual) Baso # (Auto) Lymphocytes % (Manual) Monocytes % (Manual) Eosinophils % (Manual) Basophils % (Manual) Seg Neutrophils # Seg Neutrophils # Man Lymphocytes # (Manual) Monocytes # (Manual) Eosinophils # (Manual) Nucleated RBC % Basophils # (Manual) PT INR APTT Heparin Anti-Xa Level ABG pH POC ABG pO2 ABG pO2 70.7 L ABG HCO3 36.1 H ABG O2 Saturation 94.4 L ABG Base Excess 10.0 H POC ABG pCO2 ABG Hemoglobin 9.7 L ABG Oxyhemoglobin ABG Chloride ABG Glucose Oxyhemoglobin 91.8 L Sodium Potassium Chloride Carbon Dioxide BUN Creatinine Glucose POC Glucose 128 H 132 H Lactic Acid Calcium Phosphorus Magnesium AST ALT Lactate Dehydrogenase Total Bilirubin Direct Bilirubin CK-MB (CK-2) C-Reactive Protein NT-Pro-B Natriuret Pep Total Protein Albumin Arterial Blood Glucose Urine WBC (Auto) Urine Creatinine 01/04/20 01/04/20 01/04/20 00:10 04:26 05:23 WBC RBC Hgb Hct MCHC RDW MCV MCH Lymph % (Auto) [place] % (Auto) [place] # Eos # Lymph # (Auto) [place] # (Auto) Eos # (Auto) Seg Neutrophils % Seg Neuts % (Manual) Baso # (Auto) Lymphocytes % (Manual) Monocytes % (Manual) Eosinophils % (Manual) Basophils % (Manual) Seg Neutrophils # Seg Neutrophils # Man Lymphocytes # (Manual) Monocytes # (Manual) Eosinophils # (Manual) Nucleated RBC % Basophils # (Manual) PT INR APTT Heparin Anti-Xa Level 0.16 L ABG pH POC ABG pO2 ABG pO2 ABG HCO3 ABG O2 Saturation ABG Base Excess POC ABG pCO2 ABG Hemoglobin ABG Oxyhemoglobin ABG Chloride ABG Glucose Oxyhemoglobin Sodium Potassium Chloride Carbon Dioxide BUN Creatinine Glucose POC Glucose 121 H 119 H Lactic Acid Calcium Phosphorus Magnesium AST ALT Lactate Dehydrogenase Total Bilirubin Direct Bilirubin CK-MB (CK-2) C-Reactive Protein NT-Pro-B Natriuret Pep Total Protein Albumin Arterial Blood Glucose Urine WBC (Auto) Urine Creatinine 01/04/20 01/04/20 01/04/20 09:50 09:50 12:18 WBC 15.4 H RBC 3.30 L Hgb 8.7 L Hct 28.2 L MCHC 31 L RDW 17.0 H MCV MCH 26 L Lymph % (Auto) [place] % (Auto) 7.6 H [place] # Eos # Lymph # (Auto) [place] # (Auto) 1.2 H Eos # (Auto) Seg Neutrophils % 75.4 H Seg Neuts % (Manual) Baso # (Auto) Lymphocytes % (Manual) Monocytes % (Manual) Eosinophils % (Manual) Basophils % (Manual) Seg Neutrophils # 11.6 H Seg Neutrophils # Man Lymphocytes # (Manual) Monocytes # (Manual) Eosinophils # (Manual) Nucleated RBC % Basophils # (Manual) PT INR APTT Heparin Anti-Xa Level ABG pH POC ABG pO2 ABG pO2 ABG HCO3 ABG O2 Saturation ABG Base Excess POC ABG pCO2 ABG Hemoglobin ABG Oxyhemoglobin ABG Chloride ABG Glucose Oxyhemoglobin Sodium 148 H Potassium 3.5 L Chloride Carbon Dioxide 32 H BUN Creatinine 0.6 L Glucose 114 H POC Glucose 111 H Lactic Acid Calcium Phosphorus Magnesium AST ALT 59 H Lactate Dehydrogenase Total Bilirubin Direct Bilirubin CK-MB (CK-2) C-Reactive Protein NT-Pro-B Natriuret Pep Total Protein Albumin 2.6 L Arterial Blood Glucose Urine WBC (Auto) Urine Creatinine 01/05/20 01/05/20 01/05/20 04:05 04:05 05:19 WBC 11.7 H RBC 3.50 L Hgb 9.3 L Hct 29.9 L MCHC 31 L RDW 16.6 H MCV MCH 27 L Lymph % (Auto) 13.1 L [place] % (Auto) 9.7 H [place] # Eos # Lymph # (Auto) [place] # (Auto) 1.1 H Eos # (Auto) Seg Neutrophils % 74.0 H Seg Neuts % (Manual) Baso # (Auto) Lymphocytes % (Manual) Monocytes % (Manual) Eosinophils % (Manual) Basophils % (Manual) Seg Neutrophils # 8.6 H Seg Neutrophils # Man Lymphocytes # (Manual) Monocytes # (Manual) Eosinophils # (Manual) Nucleated RBC % Basophils # (Manual) PT INR APTT Heparin Anti-Xa Level ABG pH POC ABG pO2 ABG pO2 ABG HCO3 ABG O2 Saturation ABG Base Excess POC ABG pCO2 ABG Hemoglobin ABG Oxyhemoglobin ABG Chloride ABG Glucose Oxyhemoglobin Sodium 151 H Potassium Chloride Carbon Dioxide 34 H BUN Creatinine 0.7 L Glucose POC Glucose 112 H Lactic Acid Calcium Phosphorus Magnesium AST ALT 59 H Lactate Dehydrogenase Total Bilirubin Direct Bilirubin CK-MB (CK-2) C-Reactive Protein NT-Pro-B Natriuret Pep Total Protein 5.8 L Albumin 2.6 L Arterial Blood Glucose Urine WBC (Auto) Urine Creatinine 01/05/20 01/06/20 01/06/20 16:04 00:23 04:44 WBC RBC 3.36 L Hgb 8.9 L Hct 28.7 L MCHC 31 L RDW 16.9 H MCV MCH 26 L Lymph % (Auto) [place] % (Auto) 9.4 H [place] # Eos # Lymph # (Auto) [place] # (Auto) Eos # (Auto) Seg Neutrophils % Seg Neuts % (Manual) Baso # (Auto) Lymphocytes % (Manual) Monocytes % (Manual) Eosinophils % (Manual) Basophils % (Manual) Seg Neutrophils # Seg Neutrophils # Man Lymphocytes # (Manual) Monocytes # (Manual) Eosinophils # (Manual) Nucleated RBC % Basophils # (Manual) PT INR APTT Heparin Anti-Xa Level ABG pH POC ABG pO2 ABG pO2 ABG HCO3 ABG O2 Saturation ABG Base Excess POC ABG pCO2 ABG Hemoglobin ABG Oxyhemoglobin ABG Chloride ABG Glucose Oxyhemoglobin Sodium 151 H Potassium 3.2 L Chloride Carbon Dioxide 34 H BUN Creatinine 0.6 L Glucose POC Glucose 107 H Lactic Acid Calcium Phosphorus Magnesium AST ALT Lactate Dehydrogenase Total Bilirubin Direct Bilirubin CK-MB (CK-2) C-Reactive Protein NT-Pro-B Natriuret Pep Total Protein Albumin Arterial Blood Glucose Urine WBC (Auto) Urine Creatinine 01/06/20 01/06/20 01/06/20 04:44 05:33 12:04 WBC RBC Hgb Hct MCHC RDW MCV MCH Lymph % (Auto) [place] % (Auto) [place] # Eos # Lymph # (Auto) [place] # (Auto) Eos # (Auto) Seg Neutrophils % Seg Neuts % (Manual) Baso # (Auto) Lymphocytes % (Manual) Monocytes % (Manual) Eosinophils % (Manual) Basophils % (Manual) Seg Neutrophils # Seg Neutrophils # Man Lymphocytes # (Manual) Monocytes # (Manual) Eosinophils # (Manual) Nucleated RBC % Basophils # (Manual) PT INR APTT Heparin Anti-Xa Level ABG pH POC ABG pO2 ABG pO2 ABG HCO3 ABG O2 Saturation ABG Base Excess POC ABG pCO2 ABG Hemoglobin ABG Oxyhemoglobin ABG Chloride ABG Glucose Oxyhemoglobin Sodium 151 H Potassium 3.4 L Chloride Carbon Dioxide 33 H BUN Creatinine 0.6 L Glucose 118 H POC Glucose 118 H 123 H Lactic Acid Calcium Phosphorus Magnesium AST ALT Lactate Dehydrogenase Total Bilirubin Direct Bilirubin CK-MB (CK-2) C-Reactive Protein NT-Pro-B Natriuret Pep Total Protein 6.2 L Albumin 2.6 L Arterial Blood Glucose Urine WBC (Auto) Urine Creatinine 01/06/20 01/07/20 01/07/20 17:54 00:06 04:10 WBC RBC 3.42 L Hgb 8.9 L Hct 29.0 L MCHC 31 L RDW 17.1 H MCV MCH 26 L Lymph % (Auto) [place] % (Auto) 8.4 H [place] # Eos # Lymph # (Auto) [place] # (Auto) Eos # (Auto) Seg Neutrophils % Seg Neuts % (Manual) Baso # (Auto) Lymphocytes % (Manual) Monocytes % (Manual) Eosinophils % (Manual) Basophils % (Manual) Seg Neutrophils # Seg Neutrophils # Man Lymphocytes # (Manual) Monocytes # (Manual) Eosinophils # (Manual) Nucleated RBC % Basophils # (Manual) PT INR APTT Heparin Anti-Xa Level ABG pH POC ABG pO2 ABG pO2 ABG HCO3 ABG O2 Saturation ABG Base Excess POC ABG pCO2 ABG Hemoglobin ABG Oxyhemoglobin ABG Chloride ABG Glucose Oxyhemoglobin Sodium Potassium Chloride Carbon Dioxide BUN Creatinine Glucose POC Glucose 112 H 126 H Lactic Acid Calcium Phosphorus Magnesium AST ALT Lactate Dehydrogenase Total Bilirubin Direct Bilirubin CK-MB (CK-2) C-Reactive Protein NT-Pro-B Natriuret Pep Total Protein Albumin Arterial Blood Glucose Urine WBC (Auto) Urine Creatinine 01/07/20 01/07/20 01/07/20 04:10 05:59 12:27 WBC RBC Hgb Hct MCHC RDW MCV MCH Lymph % (Auto) [place] % (Auto) [place] # Eos # Lymph # (Auto) [place] # (Auto) Eos # (Auto) Seg Neutrophils % Seg Neuts % (Manual) Baso # (Auto) Lymphocytes % (Manual) Monocytes % (Manual) Eosinophils % (Manual) Basophils % (Manual) Seg Neutrophils # Seg Neutrophils # Man Lymphocytes # (Manual) Monocytes # (Manual) Eosinophils # (Manual) Nucleated RBC % Basophils # (Manual) PT INR APTT Heparin Anti-Xa Level ABG pH POC ABG pO2 ABG pO2 ABG HCO3 ABG O2 Saturation ABG Base Excess POC ABG pCO2 ABG Hemoglobin ABG Oxyhemoglobin ABG Chloride ABG Glucose Oxyhemoglobin Sodium 153 H Potassium 3.5 L Chloride Carbon Dioxide 34 H BUN Creatinine 0.6 L Glucose 121 H POC Glucose 121 H 126 H Lactic Acid Calcium Phosphorus Magnesium AST ALT Lactate Dehydrogenase Total Bilirubin Direct Bilirubin CK-MB (CK-2) C-Reactive Protein NT-Pro-B Natriuret Pep Total Protein 5.9 L Albumin 2.4 L Arterial Blood Glucose Urine WBC (Auto) Urine Creatinine 01/07/20 01/08/20 01/08/20 18:12 00:03 05:41 WBC RBC Hgb Hct MCHC RDW MCV MCH Lymph % (Auto) [place] % (Auto) [place] # Eos # Lymph # (Auto) [place] # (Auto) Eos # (Auto) Seg Neutrophils % Seg Neuts % (Manual) Baso # (Auto) Lymphocytes % (Manual) Monocytes % (Manual) Eosinophils % (Manual) Basophils % (Manual) Seg Neutrophils # Seg Neutrophils # Man Lymphocytes # (Manual) Monocytes # (Manual) Eosinophils # (Manual) Nucleated RBC % Basophils # (Manual) PT INR APTT Heparin Anti-Xa Level ABG pH POC ABG pO2 ABG pO2 ABG HCO3 ABG O2 Saturation ABG Base Excess POC ABG pCO2 ABG Hemoglobin ABG Oxyhemoglobin ABG Chloride ABG Glucose Oxyhemoglobin Sodium Potassium Chloride Carbon Dioxide BUN Creatinine Glucose POC Glucose 124 H 130 H 138 H Lactic Acid Calcium Phosphorus Magnesium AST ALT Lactate Dehydrogenase Total Bilirubin Direct Bilirubin CK-MB (CK-2) C-Reactive Protein NT-Pro-B Natriuret Pep Total Protein Albumin Arterial Blood Glucose Urine WBC (Auto) Urine Creatinine 01/08/20 01/08/20 01/08/20 09:28 11:42 18:21 WBC RBC Hgb Hct MCHC RDW MCV MCH Lymph % (Auto) [place] % (Auto) [place] # Eos # Lymph # (Auto) [place] # (Auto) Eos # (Auto) Seg Neutrophils % Seg Neuts % (Manual) Baso # (Auto) Lymphocytes % (Manual) Monocytes % (Manual) Eosinophils % (Manual) Basophils % (Manual) Seg Neutrophils # Seg Neutrophils # Man Lymphocytes # (Manual) Monocytes # (Manual) Eosinophils # (Manual) Nucleated RBC % Basophils # (Manual) PT INR APTT Heparin Anti-Xa Level ABG pH POC ABG pO2 ABG pO2 ABG HCO3 ABG O2 Saturation ABG Base Excess POC ABG pCO2 ABG Hemoglobin ABG Oxyhemoglobin ABG Chloride ABG Glucose Oxyhemoglobin Sodium Potassium Chloride Carbon Dioxide BUN Creatinine Glucose POC Glucose 181 H 150 H 129 H Lactic Acid Calcium Phosphorus Magnesium AST ALT Lactate Dehydrogenase Total Bilirubin Direct Bilirubin CK-MB (CK-2) C-Reactive Protein NT-Pro-B Natriuret Pep Total Protein Albumin Arterial Blood Glucose Urine WBC (Auto) Urine Creatinine 01/08/20 01/08/20 01/09/20 19:25 23:55 04:11 WBC RBC 3.43 L Hgb 8.9 L Hct 28.7 L MCHC 31 L RDW 17.6 H MCV MCH 26 L Lymph % (Auto) [place] % (Auto) 8.6 H [place] # Eos # Lymph # (Auto) [place] # (Auto) Eos # (Auto) Seg Neutrophils % Seg Neuts % (Manual) Baso # (Auto) Lymphocytes % (Manual) Monocytes % (Manual) Eosinophils % (Manual) Basophils % (Manual) Seg Neutrophils # Seg Neutrophils # Man Lymphocytes # (Manual) Monocytes # (Manual) Eosinophils # (Manual) Nucleated RBC % Basophils # (Manual) PT INR APTT Heparin Anti-Xa Level ABG pH POC ABG pO2 ABG pO2 ABG HCO3 ABG O2 Saturation ABG Base Excess POC ABG pCO2 ABG Hemoglobin ABG Oxyhemoglobin ABG Chloride ABG Glucose Oxyhemoglobin Sodium Potassium Chloride Carbon Dioxide BUN Creatinine 0.7 L Glucose 117 H POC Glucose 132 H Lactic Acid Calcium Phosphorus Magnesium AST ALT Lactate Dehydrogenase Total Bilirubin Direct Bilirubin CK-MB (CK-2) C-Reactive Protein NT-Pro-B Natriuret Pep Total Protein Albumin Arterial Blood Glucose Urine WBC (Auto) Urine Creatinine 01/09/20 01/09/20 01/09/20 04:11 05:38 22:58 WBC RBC Hgb Hct MCHC RDW MCV MCH Lymph % (Auto) [place] % (Auto) [place] # Eos # Lymph # (Auto) [place] # (Auto) Eos # (Auto) Seg Neutrophils % Seg Neuts % (Manual) Baso # (Auto) Lymphocytes % (Manual) Monocytes % (Manual) Eosinophils % (Manual) Basophils % (Manual) Seg Neutrophils # Seg Neutrophils # Man Lymphocytes # (Manual) Monocytes # (Manual) Eosinophils # (Manual) Nucleated RBC % Basophils # (Manual) PT INR APTT Heparin Anti-Xa Level ABG pH POC ABG pO2 ABG pO2 ABG HCO3 ABG O2 Saturation ABG Base Excess POC ABG pCO2 ABG Hemoglobin ABG Oxyhemoglobin ABG Chloride ABG Glucose Oxyhemoglobin Sodium 147 H Potassium 3.3 L D Chloride Carbon Dioxide 32 H BUN Creatinine 0.6 L Glucose 106 H POC Glucose 107 H 113 H Lactic Acid Calcium Phosphorus Magnesium AST ALT Lactate Dehydrogenase Total Bilirubin Direct Bilirubin CK-MB (CK-2) C-Reactive Protein NT-Pro-B Natriuret Pep Total Protein Albumin Arterial Blood Glucose Urine WBC (Auto) Urine Creatinine 01/10/20 01/10/20 01/10/20 04:05 11:36 17:54 WBC RBC Hgb Hct MCHC RDW MCV MCH Lymph % (Auto) [place] % (Auto) [place] # Eos # Lymph # (Auto) [place] # (Auto) Eos # (Auto) Seg Neutrophils % Seg Neuts % (Manual) Baso # (Auto) Lymphocytes % (Manual) Monocytes % (Manual) Eosinophils % (Manual) Basophils % (Manual) Seg Neutrophils # Seg Neutrophils # Man Lymphocytes # (Manual) Monocytes # (Manual) Eosinophils # (Manual) Nucleated RBC % Basophils # (Manual) PT INR APTT Heparin Anti-Xa Level ABG pH POC ABG pO2 ABG pO2 ABG HCO3 ABG O2 Saturation ABG Base Excess POC ABG pCO2 ABG Hemoglobin ABG Oxyhemoglobin ABG Chloride ABG Glucose Oxyhemoglobin Sodium Potassium Chloride Carbon Dioxide BUN Creatinine 0.7 L Glucose 110 H POC Glucose 129 H 117 H Lactic Acid Calcium Phosphorus Magnesium AST ALT Lactate Dehydrogenase Total Bilirubin Direct Bilirubin CK-MB (CK-2) C-Reactive Protein NT-Pro-B Natriuret Pep Total Protein Albumin Arterial Blood Glucose Urine WBC (Auto) Urine Creatinine 01/10/20 01/11/20 01/11/20 23:52 03:19 12:09 WBC RBC Hgb Hct MCHC RDW MCV MCH Lymph % (Auto) [place] % (Auto) [place] # Eos # Lymph # (Auto) [place] # (Auto) Eos # (Auto) Seg Neutrophils % Seg Neuts % (Manual) Baso # (Auto) Lymphocytes % (Manual) Monocytes % (Manual) Eosinophils % (Manual) Basophils % (Manual) Seg Neutrophils # Seg Neutrophils # Man Lymphocytes # (Manual) Monocytes # (Manual) Eosinophils # (Manual) Nucleated RBC % Basophils # (Manual) PT INR APTT Heparin Anti-Xa Level ABG pH POC ABG pO2 ABG pO2 ABG HCO3 ABG O2 Saturation ABG Base Excess POC ABG pCO2 ABG Hemoglobin ABG Oxyhemoglobin ABG Chloride ABG Glucose Oxyhemoglobin Sodium Potassium Chloride Carbon Dioxide BUN Creatinine Glucose POC Glucose 117 H 136 H 115 H Lactic Acid Calcium Phosphorus Magnesium AST ALT Lactate Dehydrogenase Total Bilirubin Direct Bilirubin CK-MB (CK-2) C-Reactive Protein NT-Pro-B Natriuret Pep Total Protein Albumin Arterial Blood Glucose Urine WBC (Auto) Urine Creatinine 01/11/20 01/11/20 01/12/20 18:27 23:28 00:23 WBC RBC Hgb 9.8 L Hct 31.6 L MCHC 31 L RDW 17.8 H MCV 83 L MCH 26 L Lymph % (Auto) [place] % (Auto) 8.0 H [place] # Eos # Lymph # (Auto) [place] # (Auto) Eos # (Auto) Seg Neutrophils % Seg Neuts % (Manual) Baso # (Auto) Lymphocytes % (Manual) Monocytes % (Manual) Eosinophils % (Manual) Basophils % (Manual) Seg Neutrophils # Seg Neutrophils # Man Lymphocytes # (Manual) Monocytes # (Manual) Eosinophils # (Manual) Nucleated RBC % Basophils # (Manual) PT INR APTT Heparin Anti-Xa Level ABG pH POC ABG pO2 ABG pO2 ABG HCO3 ABG O2 Saturation ABG Base Excess POC ABG pCO2 ABG Hemoglobin ABG Oxyhemoglobin ABG Chloride ABG Glucose Oxyhemoglobin Sodium Potassium Chloride Carbon Dioxide BUN Creatinine Glucose POC Glucose 118 H 122 H Lactic Acid Calcium Phosphorus Magnesium AST ALT Lactate Dehydrogenase Total Bilirubin Direct Bilirubin CK-MB (CK-2) C-Reactive Protein NT-Pro-B Natriuret Pep Total Protein Albumin Arterial Blood Glucose Urine WBC (Auto) Urine Creatinine 01/12/20 01/12/20 01/12/20 00:23 04:18 04:18 WBC RBC Hgb 9.6 L Hct 30.9 L MCHC 31 L RDW 17.3 H MCV 81 L MCH 25 L Lymph % (Auto) [place] % (Auto) [place] # Eos # Lymph # (Auto) [place] # (Auto) Eos # (Auto) Seg Neutrophils % Seg Neuts % (Manual) Baso # (Auto) Lymphocytes % (Manual) Monocytes % (Manual) Eosinophils % (Manual) Basophils % (Manual) Seg Neutrophils # Seg Neutrophils # Man Lymphocytes # (Manual) Monocytes # (Manual) Eosinophils # (Manual) Nucleated RBC % Basophils # (Manual) PT INR APTT Heparin Anti-Xa Level ABG pH POC ABG pO2 ABG pO2 ABG HCO3 ABG O2 Saturation ABG Base Excess POC ABG pCO2 ABG Hemoglobin ABG Oxyhemoglobin ABG Chloride ABG Glucose Oxyhemoglobin Sodium Potassium Chloride Carbon Dioxide BUN Creatinine 0.7 L 0.7 L Glucose 111 H 108 H POC Glucose Lactic Acid Calcium Phosphorus Magnesium AST ALT Lactate Dehydrogenase Total Bilirubin Direct Bilirubin CK-MB (CK-2) C-Reactive Protein NT-Pro-B Natriuret Pep Total Protein Albumin 2.6 L Arterial Blood Glucose Urine WBC (Auto) Urine Creatinine 01/12/20 01/12/20 01/12/20 06:03 12:27 13:58 WBC RBC Hgb Hct MCHC RDW MCV MCH Lymph % (Auto) [place] % (Auto) [place] # Eos # Lymph # (Auto) [place] # (Auto) Eos # (Auto) Seg Neutrophils % Seg Neuts % (Manual) Baso # (Auto) Lymphocytes % (Manual) Monocytes % (Manual) Eosinophils % (Manual) Basophils % (Manual) Seg Neutrophils # Seg Neutrophils # Man Lymphocytes # (Manual) Monocytes # (Manual) Eosinophils # (Manual) Nucleated RBC % Basophils # (Manual) PT INR APTT Heparin Anti-Xa Level ABG pH 7.453 H POC ABG pO2 76.6 L ABG pO2 ABG HCO3 ABG O2 Saturation ABG Base Excess POC ABG pCO2 ABG Hemoglobin 10.3 L ABG Oxyhemoglobin ABG Chloride ABG Glucose 99 H Oxyhemoglobin Sodium Potassium Chloride Carbon Dioxide BUN Creatinine Glucose POC Glucose 128 H 121 H Lactic Acid Calcium Phosphorus Magnesium AST ALT Lactate Dehydrogenase Total Bilirubin Direct Bilirubin CK-MB (CK-2) C-Reactive Protein NT-Pro-B Natriuret Pep Total Protein Albumin Arterial Blood Glucose 99 H Urine WBC (Auto) Urine Creatinine 01/12/20 01/13/20 01/13/20 18:24 12:01 17:46 WBC RBC Hgb Hct MCHC RDW MCV MCH Lymph % (Auto) [place] % (Auto) [place] # Eos # Lymph # (Auto) [place] # (Auto) Eos # (Auto) Seg Neutrophils % Seg Neuts % (Manual) Baso # (Auto) Lymphocytes % (Manual) Monocytes % (Manual) Eosinophils % (Manual) Basophils % (Manual) Seg Neutrophils # Seg Neutrophils # Man Lymphocytes # (Manual) Monocytes # (Manual) Eosinophils # (Manual) Nucleated RBC % Basophils # (Manual) PT INR APTT Heparin Anti-Xa Level ABG pH POC ABG pO2 ABG pO2 ABG HCO3 ABG O2 Saturation ABG Base Excess POC ABG pCO2 ABG Hemoglobin ABG Oxyhemoglobin ABG Chloride ABG Glucose Oxyhemoglobin Sodium Potassium Chloride Carbon Dioxide BUN Creatinine Glucose POC Glucose 119 H 107 H 124 H Lactic Acid Calcium Phosphorus Magnesium AST ALT Lactate Dehydrogenase Total Bilirubin Direct Bilirubin CK-MB (CK-2) C-Reactive Protein NT-Pro-B Natriuret Pep Total Protein Albumin Arterial Blood Glucose Urine WBC (Auto) Urine Creatinine 01/13/20 01/14/20 01/14/20 20:40 00:10 05:33 WBC RBC Hgb Hct MCHC RDW MCV MCH Lymph % (Auto) [place] % (Auto) [place] # Eos # Lymph # (Auto) [place] # (Auto) Eos # (Auto) Seg Neutrophils % Seg Neuts % (Manual) Baso # (Auto) Lymphocytes % (Manual) Monocytes % (Manual) Eosinophils % (Manual) Basophils % (Manual) Seg Neutrophils # Seg Neutrophils # Man Lymphocytes # (Manual) Monocytes # (Manual) Eosinophils # (Manual) Nucleated RBC % Basophils # (Manual) PT INR APTT Heparin Anti-Xa Level ABG pH POC ABG pO2 ABG pO2 65.3 L ABG HCO3 31.8 H ABG O2 Saturation 93.5 L ABG Base Excess 6.7 H POC ABG pCO2 ABG Hemoglobin 13.3 L ABG Oxyhemoglobin ABG Chloride ABG Glucose Oxyhemoglobin 90.9 L Sodium Potassium Chloride Carbon Dioxide BUN Creatinine Glucose POC Glucose 111 H 111 H Lactic Acid Calcium Phosphorus Magnesium AST ALT Lactate Dehydrogenase Total Bilirubin Direct Bilirubin CK-MB (CK-2) C-Reactive Protein NT-Pro-B Natriuret Pep Total Protein Albumin Arterial Blood Glucose Urine WBC (Auto) Urine Creatinine 01/14/20 01/14/20 01/14/20 12:10 16:14 16:14 WBC RBC Hgb 10.6 L Hct 34.2 L MCHC 31 L RDW 18.3 H MCV 83 L MCH 26 L Lymph % (Auto) [place] % (Auto) 7.4 H [place] # Eos # Lymph # (Auto) [place] # (Auto) Eos # (Auto) Seg Neutrophils % 71.9 H Seg Neuts % (Manual) Baso # (Auto) Lymphocytes % (Manual) Monocytes % (Manual) Eosinophils % (Manual) Basophils % (Manual) Seg Neutrophils # Seg Neutrophils # Man Lymphocytes # (Manual) Monocytes # (Manual) Eosinophils # (Manual) Nucleated RBC % Basophils # (Manual) PT INR APTT Heparin Anti-Xa Level ABG pH POC ABG pO2 ABG pO2 ABG HCO3 ABG O2 Saturation ABG Base Excess POC ABG pCO2 ABG Hemoglobin ABG Oxyhemoglobin ABG Chloride ABG Glucose Oxyhemoglobin Sodium Potassium Chloride Carbon Dioxide 31 H BUN Creatinine 0.6 L Glucose 131 H POC Glucose 139 H Lactic Acid Calcium Phosphorus Magnesium AST ALT Lactate Dehydrogenase Total Bilirubin Direct Bilirubin CK-MB (CK-2) C-Reactive Protein NT-Pro-B Natriuret Pep Total Protein Albumin Arterial Blood Glucose Urine WBC (Auto) Urine Creatinine 01/14/20 01/15/20 01/15/20 18:05 00:52 05:35 WBC RBC Hgb Hct MCHC RDW MCV MCH Lymph % (Auto) [place] % (Auto) [place] # Eos # Lymph # (Auto) [place] # (Auto) Eos # (Auto) Seg Neutrophils % Seg Neuts % (Manual) Baso # (Auto) Lymphocytes % (Manual) Monocytes % (Manual) Eosinophils % (Manual) Basophils % (Manual) Seg Neutrophils # Seg Neutrophils # Man Lymphocytes # (Manual) Monocytes # (Manual) Eosinophils # (Manual) Nucleated RBC % Basophils # (Manual) PT INR APTT Heparin Anti-Xa Level ABG pH POC ABG pO2 ABG pO2 ABG HCO3 ABG O2 Saturation ABG Base Excess POC ABG pCO2 ABG Hemoglobin ABG Oxyhemoglobin ABG Chloride ABG Glucose Oxyhemoglobin Sodium Potassium Chloride Carbon Dioxide BUN Creatinine Glucose POC Glucose 147 H 140 H 159 H Lactic Acid Calcium Phosphorus Magnesium AST ALT Lactate Dehydrogenase Total Bilirubin Direct Bilirubin CK-MB (CK-2) C-Reactive Protein NT-Pro-B Natriuret Pep Total Protein Albumin Arterial Blood Glucose Urine WBC (Auto) Urine Creatinine 01/15/20 01/15/20 01/16/20 12:52 17:43 00:32 WBC RBC Hgb Hct MCHC RDW MCV MCH Lymph % (Auto) [place] % (Auto) [place] # Eos # Lymph # (Auto) [place] # (Auto) Eos # (Auto) Seg Neutrophils % Seg Neuts % (Manual) Baso # (Auto) Lymphocytes % (Manual) Monocytes % (Manual) Eosinophils % (Manual) Basophils % (Manual) Seg Neutrophils # Seg Neutrophils # Man Lymphocytes # (Manual) Monocytes # (Manual) Eosinophils # (Manual) Nucleated RBC % Basophils # (Manual) PT INR APTT Heparin Anti-Xa Level ABG pH POC ABG pO2 ABG pO2 ABG HCO3 ABG O2 Saturation ABG Base Excess POC ABG pCO2 ABG Hemoglobin ABG Oxyhemoglobin ABG Chloride ABG Glucose Oxyhemoglobin Sodium Potassium Chloride Carbon Dioxide BUN Creatinine Glucose POC Glucose 164 H 167 H 153 H Lactic Acid Calcium Phosphorus Magnesium AST ALT Lactate Dehydrogenase Total Bilirubin Direct Bilirubin CK-MB (CK-2) C-Reactive Protein NT-Pro-B Natriuret Pep Total Protein Albumin Arterial Blood Glucose Urine WBC (Auto) Urine Creatinine 01/16/20 01/16/20 01/17/20 05:46 11:48 06:38 WBC RBC Hgb Hct MCHC RDW MCV MCH Lymph % (Auto) [place] % (Auto) [place] # Eos # Lymph # (Auto) [place] # (Auto) Eos # (Auto) Seg Neutrophils % Seg Neuts % (Manual) Baso # (Auto) Lymphocytes % (Manual) Monocytes % (Manual) Eosinophils % (Manual) Basophils % (Manual) Seg Neutrophils # Seg Neutrophils # Man Lymphocytes # (Manual) Monocytes # (Manual) Eosinophils # (Manual) Nucleated RBC % Basophils # (Manual) PT INR APTT Heparin Anti-Xa Level ABG pH POC ABG pO2 ABG pO2 ABG HCO3 ABG O2 Saturation ABG Base Excess POC ABG pCO2 ABG Hemoglobin ABG Oxyhemoglobin ABG Chloride ABG Glucose Oxyhemoglobin Sodium Potassium Chloride Carbon Dioxide BUN Creatinine Glucose POC Glucose 163 H 155 H 116 H Lactic Acid Calcium Phosphorus Magnesium AST ALT Lactate Dehydrogenase Total Bilirubin Direct Bilirubin CK-MB (CK-2) C-Reactive Protein NT-Pro-B Natriuret Pep Total Protein Albumin Arterial Blood Glucose Urine WBC (Auto) Urine Creatinine 01/17/20 01/17/20 01/18/20 11:36 17:43 00:12 WBC RBC Hgb Hct MCHC RDW MCV MCH Lymph % (Auto) [place] % (Auto) [place] # Eos # Lymph # (Auto) [place] # (Auto) Eos # (Auto) Seg Neutrophils % Seg Neuts % (Manual) Baso # (Auto) Lymphocytes % (Manual) Monocytes % (Manual) Eosinophils % (Manual) Basophils % (Manual) Seg Neutrophils # Seg Neutrophils # Man Lymphocytes # (Manual) Monocytes # (Manual) Eosinophils # (Manual) Nucleated RBC % Basophils # (Manual) PT INR APTT Heparin Anti-Xa Level ABG pH POC ABG pO2 ABG pO2 ABG HCO3 ABG O2 Saturation ABG Base Excess POC ABG pCO2 ABG Hemoglobin ABG Oxyhemoglobin ABG Chloride ABG Glucose Oxyhemoglobin Sodium Potassium Chloride Carbon Dioxide BUN Creatinine Glucose POC Glucose 110 H 134 H 108 H Lactic Acid Calcium Phosphorus Magnesium AST ALT Lactate Dehydrogenase Total Bilirubin Direct Bilirubin CK-MB (CK-2) C-Reactive Protein NT-Pro-B Natriuret Pep Total Protein Albumin Arterial Blood Glucose Urine WBC (Auto) Urine Creatinine 01/18/20 01/18/20 01/18/20 05:37 06:46 06:46 WBC RBC Hgb 10.1 L Hct 32.2 L MCHC 31 L RDW 18.1 H MCV 81 L MCH 25 L Lymph % (Auto) [place] % (Auto) [place] # Eos # Lymph # (Auto) [place] # (Auto) Eos # (Auto) Seg Neutrophils % 71.9 H Seg Neuts % (Manual) Baso # (Auto) Lymphocytes % (Manual) Monocytes % (Manual) Eosinophils % (Manual) Basophils % (Manual) Seg Neutrophils # Seg Neutrophils # Man Lymphocytes # (Manual) Monocytes # (Manual) Eosinophils # (Manual) Nucleated RBC % Basophils # (Manual) PT INR APTT Heparin Anti-Xa Level ABG pH POC ABG pO2 ABG pO2 ABG HCO3 ABG O2 Saturation ABG Base Excess POC ABG pCO2 ABG Hemoglobin ABG Oxyhemoglobin ABG Chloride ABG Glucose Oxyhemoglobin Sodium Potassium Chloride Carbon Dioxide BUN Creatinine 0.7 L Glucose 155 H POC Glucose 168 H Lactic Acid Calcium Phosphorus Magnesium AST ALT Lactate Dehydrogenase Total Bilirubin Direct Bilirubin CK-MB (CK-2) C-Reactive Protein NT-Pro-B Natriuret Pep Total Protein Albumin Arterial Blood Glucose Urine WBC (Auto) Urine Creatinine 01/18/20 01/18/20 01/18/20 12:05 17:14 23:28 WBC RBC Hgb Hct MCHC RDW MCV MCH Lymph % (Auto) [place] % (Auto) [place] # Eos # Lymph # (Auto) [place] # (Auto) Eos # (Auto) Seg Neutrophils % Seg Neuts % (Manual) Baso # (Auto) Lymphocytes % (Manual) Monocytes % (Manual) Eosinophils % (Manual) Basophils % (Manual) Seg Neutrophils # Seg Neutrophils # Man Lymphocytes # (Manual) Monocytes # (Manual) Eosinophils # (Manual) Nucleated RBC % Basophils # (Manual) PT INR APTT Heparin Anti-Xa Level ABG pH POC ABG pO2 ABG pO2 ABG HCO3 ABG O2 Saturation ABG Base Excess POC ABG pCO2 ABG Hemoglobin ABG Oxyhemoglobin ABG Chloride ABG Glucose Oxyhemoglobin Sodium Potassium Chloride Carbon Dioxide BUN Creatinine Glucose POC Glucose 128 H 126 H 128 H Lactic Acid Calcium Phosphorus Magnesium AST ALT Lactate Dehydrogenase Total Bilirubin Direct Bilirubin CK-MB (CK-2) C-Reactive Protein NT-Pro-B Natriuret Pep Total Protein Albumin Arterial Blood Glucose Urine WBC (Auto) Urine Creatinine 01/19/20 01/19/20 01/19/20 05:39 12:33 17:36 WBC RBC Hgb Hct MCHC RDW MCV MCH Lymph % (Auto) [place] % (Auto) [place] # Eos # Lymph # (Auto) [place] # (Auto) Eos # (Auto) Seg Neutrophils % Seg Neuts % (Manual) Baso # (Auto) Lymphocytes % (Manual) Monocytes % (Manual) Eosinophils % (Manual) Basophils % (Manual) Seg Neutrophils # Seg Neutrophils # Man Lymphocytes # (Manual) Monocytes # (Manual) Eosinophils # (Manual) Nucleated RBC % Basophils # (Manual) PT INR APTT Heparin Anti-Xa Level ABG pH POC ABG pO2 ABG pO2 ABG HCO3 ABG O2 Saturation ABG Base Excess POC ABG pCO2 ABG Hemoglobin ABG Oxyhemoglobin ABG Chloride ABG Glucose Oxyhemoglobin Sodium Potassium Chloride Carbon Dioxide BUN Creatinine Glucose POC Glucose 164 H 171 H 152 H Lactic Acid Calcium Phosphorus Magnesium AST ALT Lactate Dehydrogenase Total Bilirubin Direct Bilirubin CK-MB (CK-2) C-Reactive Protein NT-Pro-B Natriuret Pep Total Protein Albumin Arterial Blood Glucose Urine WBC (Auto) Urine Creatinine 01/20/20 01/20/20 01/20/20 00:12 05:20 05:35 WBC RBC Hgb 9.2 L Hct 29.4 L MCHC 31 L RDW 17.9 H MCV 81 L MCH 25 L Lymph % (Auto) [place] % (Auto) [place] # Eos # Lymph # (Auto) [place] # (Auto) Eos # (Auto) Seg Neutrophils % Seg Neuts % (Manual) Baso # (Auto) Lymphocytes % (Manual) Monocytes % (Manual) Eosinophils % (Manual) Basophils % (Manual) Seg Neutrophils # Seg Neutrophils # Man Lymphocytes # (Manual) Monocytes # (Manual) Eosinophils # (Manual) Nucleated RBC % Basophils # (Manual) PT INR APTT Heparin Anti-Xa Level ABG pH POC ABG pO2 ABG pO2 ABG HCO3 ABG O2 Saturation ABG Base Excess POC ABG pCO2 ABG Hemoglobin ABG Oxyhemoglobin ABG Chloride ABG Glucose Oxyhemoglobin Sodium Potassium Chloride Carbon Dioxide BUN Creatinine Glucose POC Glucose 120 H 136 H Lactic Acid Calcium Phosphorus Magnesium AST ALT Lactate Dehydrogenase Total Bilirubin Direct Bilirubin CK-MB (CK-2) C-Reactive Protein NT-Pro-B Natriuret Pep Total Protein Albumin Arterial Blood Glucose Urine WBC (Auto) Urine Creatinine 01/20/20 01/20/20 01/20/20 05:40 11:58 14:55 WBC RBC Hgb 9.0 L Hct 28.3 L MCHC RDW MCV MCH Lymph % (Auto) [place] % (Auto) [place] # Eos # Lymph # (Auto) [place] # (Auto) Eos # (Auto) Seg Neutrophils % Seg Neuts % (Manual) Baso # (Auto) Lymphocytes % (Manual) Monocytes % (Manual) Eosinophils % (Manual) Basophils % (Manual) Seg Neutrophils # Seg Neutrophils # Man Lymphocytes # (Manual) Monocytes # (Manual) Eosinophils # (Manual) Nucleated RBC % Basophils # (Manual) PT INR APTT Heparin Anti-Xa Level ABG pH POC ABG pO2 ABG pO2 ABG HCO3 ABG O2 Saturation ABG Base Excess POC ABG pCO2 ABG Hemoglobin ABG Oxyhemoglobin ABG Chloride ABG Glucose Oxyhemoglobin Sodium Potassium Chloride Carbon Dioxide 32 H BUN 22 H Creatinine 0.7 L Glucose 128 H POC Glucose 152 H Lactic Acid Calcium Phosphorus Magnesium AST ALT Lactate Dehydrogenase Total Bilirubin Direct Bilirubin CK-MB (CK-2) C-Reactive Protein NT-Pro-B Natriuret Pep Total Protein Albumin Arterial Blood Glucose Urine WBC (Auto) Urine Creatinine 01/20/20 01/20/20 01/20/20 14:55 18:14 21:35 WBC RBC Hgb Hct MCHC RDW MCV MCH Lymph % (Auto) [place] % (Auto) [place] # Eos # Lymph # (Auto) [place] # (Auto) Eos # (Auto) Seg Neutrophils % Seg Neuts % (Manual) Baso # (Auto) Lymphocytes % (Manual) Monocytes % (Manual) Eosinophils % (Manual) Basophils % (Manual) Seg Neutrophils # Seg Neutrophils # Man Lymphocytes # (Manual) Monocytes # (Manual) Eosinophils # (Manual) Nucleated RBC % Basophils # (Manual) PT 20.4 H INR 1.72 H APTT 40.6 H Heparin Anti-Xa Level > 2.00 H ABG pH POC ABG pO2 ABG pO2 ABG HCO3 ABG O2 Saturation ABG Base Excess POC ABG pCO2 ABG Hemoglobin ABG Oxyhemoglobin ABG Chloride ABG Glucose Oxyhemoglobin Sodium Potassium Chloride Carbon Dioxide BUN Creatinine Glucose POC Glucose 150 H Lactic Acid Calcium Phosphorus Magnesium AST ALT Lactate Dehydrogenase Total Bilirubin Direct Bilirubin CK-MB (CK-2) C-Reactive Protein NT-Pro-B Natriuret Pep Total Protein Albumin Arterial Blood Glucose Urine WBC (Auto) Urine Creatinine 01/21/20 01/21/20 01/21/20 00:30 05:47 05:59 WBC RBC Hgb Hct MCHC RDW MCV MCH Lymph % (Auto) [place] % (Auto) [place] # Eos # Lymph # (Auto) [place] # (Auto) Eos # (Auto) Seg Neutrophils % Seg Neuts % (Manual) Baso # (Auto) Lymphocytes % (Manual) Monocytes % (Manual) Eosinophils % (Manual) Basophils % (Manual) Seg Neutrophils # Seg Neutrophils # Man Lymphocytes # (Manual) Monocytes # (Manual) Eosinophils # (Manual) Nucleated RBC % Basophils # (Manual) PT INR APTT Heparin Anti-Xa Level 1.93 H ABG pH POC ABG pO2 ABG pO2 ABG HCO3 ABG O2 Saturation ABG Base Excess POC ABG pCO2 ABG Hemoglobin ABG Oxyhemoglobin ABG Chloride ABG Glucose Oxyhemoglobin Sodium Potassium Chloride Carbon Dioxide BUN Creatinine Glucose POC Glucose 126 H 148 H Lactic Acid Calcium Phosphorus Magnesium AST ALT Lactate Dehydrogenase Total Bilirubin Direct Bilirubin CK-MB (CK-2) C-Reactive Protein NT-Pro-B Natriuret Pep Total Protein Albumin Arterial Blood Glucose Urine WBC (Auto) Urine Creatinine 01/21/20 01/21/20 01/21/20 12:32 18:20 23:54 WBC RBC Hgb Hct MCHC RDW MCV MCH Lymph % (Auto) [place] % (Auto) [place] # Eos # Lymph # (Auto) [place] # (Auto) Eos # (Auto) Seg Neutrophils % Seg Neuts % (Manual) Baso # (Auto) Lymphocytes % (Manual) Monocytes % (Manual) Eosinophils % (Manual) Basophils % (Manual) Seg Neutrophils # Seg Neutrophils # Man Lymphocytes # (Manual) Monocytes # (Manual) Eosinophils # (Manual) Nucleated RBC % Basophils # (Manual) PT INR APTT Heparin Anti-Xa Level 1.28 H ABG pH POC ABG pO2 ABG pO2 ABG HCO3 ABG O2 Saturation ABG Base Excess POC ABG pCO2 ABG Hemoglobin ABG Oxyhemoglobin ABG Chloride ABG Glucose Oxyhemoglobin Sodium Potassium Chloride Carbon Dioxide BUN Creatinine Glucose POC Glucose 112 H 146 H Lactic Acid Calcium Phosphorus Magnesium AST ALT Lactate Dehydrogenase Total Bilirubin Direct Bilirubin CK-MB (CK-2) C-Reactive Protein NT-Pro-B Natriuret Pep Total Protein Albumin Arterial Blood Glucose Urine WBC (Auto) Urine Creatinine 01/22/20 01/22/20 01/22/20 04:45 04:45 05:48 WBC RBC Hgb 9.3 L Hct 29.0 L MCHC RDW MCV MCH Lymph % (Auto) [place] % (Auto) [place] # Eos # Lymph # (Auto) [place] # (Auto) Eos # (Auto) Seg Neutrophils % Seg Neuts % (Manual) Baso # (Auto) Lymphocytes % (Manual) Monocytes % (Manual) Eosinophils % (Manual) Basophils % (Manual) Seg Neutrophils # Seg Neutrophils # Man Lymphocytes # (Manual) Monocytes # (Manual) Eosinophils # (Manual) Nucleated RBC % Basophils # (Manual) PT INR APTT Heparin Anti-Xa Level 1.34 H ABG pH POC ABG pO2 ABG pO2 ABG HCO3 ABG O2 Saturation ABG Base Excess POC ABG pCO2 ABG Hemoglobin ABG Oxyhemoglobin ABG Chloride ABG Glucose Oxyhemoglobin Sodium Potassium Chloride Carbon Dioxide BUN Creatinine Glucose POC Glucose 142 H Lactic Acid Calcium Phosphorus Magnesium AST ALT Lactate Dehydrogenase Total Bilirubin Direct Bilirubin CK-MB (CK-2) C-Reactive Protein NT-Pro-B Natriuret Pep Total Protein Albumin Arterial Blood Glucose Urine WBC (Auto) Urine Creatinine 01/22/20 01/22/20 01/22/20 08:09 08:22 09:58 WBC RBC Hgb Hct MCHC RDW MCV MCH Lymph % (Auto) [place] % (Auto) [place] # Eos # Lymph # (Auto) [place] # (Auto) Eos # (Auto) Seg Neutrophils % Seg Neuts % (Manual) Baso # (Auto) Lymphocytes % (Manual) Monocytes % (Manual) Eosinophils % (Manual) Basophils % (Manual) Seg Neutrophils # Seg Neutrophils # Man Lymphocytes # (Manual) Monocytes # (Manual) Eosinophils # (Manual) Nucleated RBC % Basophils # (Manual) PT 16.9 H INR 1.34 H APTT Heparin Anti-Xa Level ABG pH POC ABG pO2 ABG pO2 ABG HCO3 ABG O2 Saturation ABG Base Excess POC ABG pCO2 ABG Hemoglobin ABG Oxyhemoglobin ABG Chloride ABG Glucose Oxyhemoglobin Sodium Potassium Chloride 97.8 L Carbon Dioxide BUN 29 H Creatinine Glucose 128 H POC Glucose 131 H Lactic Acid Calcium Phosphorus Magnesium AST ALT Lactate Dehydrogenase Total Bilirubin Direct Bilirubin CK-MB (CK-2) C-Reactive Protein NT-Pro-B Natriuret Pep Total Protein Albumin Arterial Blood Glucose Urine WBC (Auto) Urine Creatinine 01/22/20 01/22/20 01/22/20 12:44 16:13 18:18 WBC RBC Hgb Hct MCHC RDW MCV MCH Lymph % (Auto) [place] % (Auto) [place] # Eos # Lymph # (Auto) [place] # (Auto) Eos # (Auto) Seg Neutrophils % Seg Neuts % (Manual) Baso # (Auto) Lymphocytes % (Manual) Monocytes % (Manual) Eosinophils % (Manual) Basophils % (Manual) Seg Neutrophils # Seg Neutrophils # Man Lymphocytes # (Manual) Monocytes # (Manual) Eosinophils # (Manual) Nucleated RBC % Basophils # (Manual) PT INR APTT Heparin Anti-Xa Level ABG pH POC ABG pO2 ABG pO2 ABG HCO3 ABG O2 Saturation ABG Base Excess POC ABG pCO2 ABG Hemoglobin ABG Oxyhemoglobin ABG Chloride ABG Glucose Oxyhemoglobin Sodium Potassium Chloride Carbon Dioxide BUN Creatinine Glucose POC Glucose 156 H 133 H 155 H Lactic Acid Calcium Phosphorus Magnesium AST ALT Lactate Dehydrogenase Total Bilirubin Direct Bilirubin CK-MB (CK-2) C-Reactive Protein NT-Pro-B Natriuret Pep Total Protein Albumin Arterial Blood Glucose Urine WBC (Auto) Urine Creatinine 01/22/20 01/23/20 01/23/20 23:22 05:37 12:59 WBC RBC Hgb Hct MCHC RDW MCV MCH Lymph % (Auto) [place] % (Auto) [place] # Eos # Lymph # (Auto) [place] # (Auto) Eos # (Auto) Seg Neutrophils % Seg Neuts % (Manual) Baso # (Auto) Lymphocytes % (Manual) Monocytes % (Manual) Eosinophils % (Manual) Basophils % (Manual) Seg Neutrophils # Seg Neutrophils # Man Lymphocytes # (Manual) Monocytes # (Manual) Eosinophils # (Manual) Nucleated RBC % Basophils # (Manual) PT INR APTT Heparin Anti-Xa Level ABG pH POC ABG pO2 ABG pO2 ABG HCO3 ABG O2 Saturation ABG Base Excess POC ABG pCO2 ABG Hemoglobin ABG Oxyhemoglobin ABG Chloride ABG Glucose Oxyhemoglobin Sodium Potassium Chloride Carbon Dioxide BUN Creatinine Glucose POC Glucose 148 H 163 H 175 H Lactic Acid Calcium Phosphorus Magnesium AST ALT Lactate Dehydrogenase Total Bilirubin Direct Bilirubin CK-MB (CK-2) C-Reactive Protein NT-Pro-B Natriuret Pep Total Protein Albumin Arterial Blood Glucose Urine WBC (Auto) Urine Creatinine 01/23/20 01/23/20 01/24/20 17:28 23:56 04:30 WBC RBC 3.46 L Hgb 8.8 L Hct 27.8 L MCHC RDW 18.2 H MCV 81 L MCH 25 L Lymph % (Auto) [place] % (Auto) 7.8 H [place] # Eos # Lymph # (Auto) [place] # (Auto) Eos # (Auto) Seg Neutrophils % Seg Neuts % (Manual) Baso # (Auto) Lymphocytes % (Manual) Monocytes % (Manual) Eosinophils % (Manual) Basophils % (Manual) Seg Neutrophils # Seg Neutrophils # Man Lymphocytes # (Manual) Monocytes # (Manual) Eosinophils # (Manual) Nucleated RBC % Basophils # (Manual) PT INR APTT Heparin Anti-Xa Level ABG pH POC ABG pO2 ABG pO2 ABG HCO3 ABG O2 Saturation ABG Base Excess POC ABG pCO2 ABG Hemoglobin ABG Oxyhemoglobin ABG Chloride ABG Glucose Oxyhemoglobin Sodium Potassium Chloride Carbon Dioxide BUN Creatinine Glucose POC Glucose 165 H 177 H Lactic Acid Calcium Phosphorus Magnesium AST ALT Lactate Dehydrogenase Total Bilirubin Direct Bilirubin CK-MB (CK-2) C-Reactive Protein NT-Pro-B Natriuret Pep Total Protein Albumin Arterial Blood Glucose Urine WBC (Auto) Urine Creatinine 01/24/20 01/24/20 01/24/20 04:30 07:18 12:06 WBC RBC Hgb Hct MCHC RDW MCV MCH Lymph % (Auto) [place] % (Auto) [place] # Eos # Lymph # (Auto) [place] # (Auto) Eos # (Auto) Seg Neutrophils % Seg Neuts % (Manual) Baso # (Auto) Lymphocytes % (Manual) Monocytes % (Manual) Eosinophils % (Manual) Basophils % (Manual) Seg Neutrophils # Seg Neutrophils # Man Lymphocytes # (Manual) Monocytes # (Manual) Eosinophils # (Manual) Nucleated RBC % Basophils # (Manual) PT INR APTT Heparin Anti-Xa Level ABG pH POC ABG pO2 ABG pO2 ABG HCO3 ABG O2 Saturation ABG Base Excess POC ABG pCO2 ABG Hemoglobin ABG Oxyhemoglobin ABG Chloride ABG Glucose Oxyhemoglobin Sodium Potassium Chloride 97.9 L Carbon Dioxide BUN 31 H Creatinine Glucose 146 H POC Glucose 151 H 133 H Lactic Acid Calcium Phosphorus Magnesium AST ALT Lactate Dehydrogenase Total Bilirubin Direct Bilirubin CK-MB (CK-2) C-Reactive Protein NT-Pro-B Natriuret Pep Total Protein Albumin Arterial Blood Glucose Urine WBC (Auto) Urine Creatinine 01/24/20 01/25/20 01/25/20 17:36 00:08 04:25 WBC RBC 3.50 L Hgb 8.7 L Hct 27.9 L MCHC 31 L RDW 18.2 H MCV 80 L MCH 25 L Lymph % (Auto) [place] % (Auto) 8.5 H [place] # Eos # Lymph # (Auto) [place] # (Auto) Eos # (Auto) Seg Neutrophils % Seg Neuts % (Manual) Baso # (Auto) Lymphocytes % (Manual) Monocytes % (Manual) Eosinophils % (Manual) Basophils % (Manual) Seg Neutrophils # Seg Neutrophils # Man Lymphocytes # (Manual) Monocytes # (Manual) Eosinophils # (Manual) Nucleated RBC % Basophils # (Manual) PT INR APTT Heparin Anti-Xa Level ABG pH POC ABG pO2 ABG pO2 ABG HCO3 ABG O2 Saturation ABG Base Excess POC ABG pCO2 ABG Hemoglobin ABG Oxyhemoglobin ABG Chloride ABG Glucose Oxyhemoglobin Sodium Potassium Chloride Carbon Dioxide BUN Creatinine Glucose POC Glucose 133 H 129 H Lactic Acid Calcium Phosphorus Magnesium AST ALT Lactate Dehydrogenase Total Bilirubin Direct Bilirubin CK-MB (CK-2) C-Reactive Protein NT-Pro-B Natriuret Pep Total Protein Albumin Arterial Blood Glucose Urine WBC (Auto) Urine Creatinine 01/25/20 01/25/20 01/25/20 04:25 05:38 11:52 WBC RBC Hgb Hct MCHC RDW MCV MCH Lymph % (Auto) [place] % (Auto) [place] # Eos # Lymph # (Auto) [place] # (Auto) Eos # (Auto) Seg Neutrophils % Seg Neuts % (Manual) Baso # (Auto) Lymphocytes % (Manual) Monocytes % (Manual) Eosinophils % (Manual) Basophils % (Manual) Seg Neutrophils # Seg Neutrophils # Man Lymphocytes # (Manual) Monocytes # (Manual) Eosinophils # (Manual) Nucleated RBC % Basophils # (Manual) PT INR APTT Heparin Anti-Xa Level ABG pH POC ABG pO2 ABG pO2 ABG HCO3 ABG O2 Saturation ABG Base Excess POC ABG pCO2 ABG Hemoglobin ABG Oxyhemoglobin ABG Chloride ABG Glucose Oxyhemoglobin Sodium Potassium Chloride Carbon Dioxide BUN 30 H Creatinine Glucose 134 H POC Glucose 129 H 134 H Lactic Acid Calcium Phosphorus Magnesium AST ALT Lactate Dehydrogenase Total Bilirubin Direct Bilirubin CK-MB (CK-2) C-Reactive Protein NT-Pro-B Natriuret Pep Total Protein Albumin Arterial Blood Glucose Urine WBC (Auto) Urine Creatinine 01/25/20 01/25/20 01/26/20 17:13 21:02 00:59 WBC RBC Hgb Hct MCHC RDW MCV MCH Lymph % (Auto) [place] % (Auto) [place] # Eos # Lymph # (Auto) [place] # (Auto) Eos # (Auto) Seg Neutrophils % Seg Neuts % (Manual) Baso # (Auto) Lymphocytes % (Manual) Monocytes % (Manual) Eosinophils % (Manual) Basophils % (Manual) Seg Neutrophils # Seg Neutrophils # Man Lymphocytes # (Manual) Monocytes # (Manual) Eosinophils # (Manual) Nucleated RBC % Basophils # (Manual) PT INR APTT Heparin Anti-Xa Level ABG pH POC ABG pO2 ABG pO2 57.5 L ABG HCO3 31.7 H ABG O2 Saturation 90.3 L ABG Base Excess 6.6 H POC ABG pCO2 ABG Hemoglobin 13.0 L ABG Oxyhemoglobin ABG Chloride ABG Glucose Oxyhemoglobin 87.5 L Sodium Potassium Chloride Carbon Dioxide BUN Creatinine Glucose POC Glucose 124 H 196 H Lactic Acid Calcium Phosphorus Magnesium AST ALT Lactate Dehydrogenase Total Bilirubin Direct Bilirubin CK-MB (CK-2) C-Reactive Protein NT-Pro-B Natriuret Pep Total Protein Albumin Arterial Blood Glucose Urine WBC (Auto) Urine Creatinine 01/26/20 01/26/20 01/26/20 03:20 05:46 12:46 WBC RBC Hgb 9.2 L Hct 29.4 L MCHC RDW MCV MCH Lymph % (Auto) [place] % (Auto) [place] # Eos # Lymph # (Auto) [place] # (Auto) Eos # (Auto) Seg Neutrophils % Seg Neuts % (Manual) Baso # (Auto) Lymphocytes % (Manual) Monocytes % (Manual) Eosinophils % (Manual) Basophils % (Manual) Seg Neutrophils # Seg Neutrophils # Man Lymphocytes # (Manual) Monocytes # (Manual) Eosinophils # (Manual) Nucleated RBC % Basophils # (Manual) PT INR APTT Heparin Anti-Xa Level ABG pH POC ABG pO2 ABG pO2 ABG HCO3 ABG O2 Saturation ABG Base Excess POC ABG pCO2 ABG Hemoglobin ABG Oxyhemoglobin ABG Chloride ABG Glucose Oxyhemoglobin Sodium Potassium Chloride Carbon Dioxide BUN Creatinine Glucose POC Glucose 141 H 122 H Lactic Acid Calcium Phosphorus Magnesium AST ALT Lactate Dehydrogenase Total Bilirubin Direct Bilirubin CK-MB (CK-2) C-Reactive Protein NT-Pro-B Natriuret Pep Total Protein Albumin Arterial Blood Glucose Urine WBC (Auto) Urine Creatinine 01/26/20 01/26/20 01/27/20 18:03 23:55 04:47 WBC RBC Hgb Hct MCHC RDW MCV MCH Lymph % (Auto) [place] % (Auto) [place] # Eos # Lymph # (Auto) [place] # (Auto) Eos # (Auto) Seg Neutrophils % Seg Neuts % (Manual) Baso # (Auto) Lymphocytes % (Manual) Monocytes % (Manual) Eosinophils % (Manual) Basophils % (Manual) Seg Neutrophils # Seg Neutrophils # Man Lymphocytes # (Manual) Monocytes # (Manual) Eosinophils # (Manual) Nucleated RBC % Basophils # (Manual) PT INR APTT Heparin Anti-Xa Level ABG pH POC ABG pO2 ABG pO2 ABG HCO3 ABG O2 Saturation ABG Base Excess POC ABG pCO2 ABG Hemoglobin ABG Oxyhemoglobin ABG Chloride ABG Glucose Oxyhemoglobin Sodium Potassium Chloride Carbon Dioxide BUN 30 H Creatinine 0.7 L Glucose 135 H POC Glucose 142 H 159 H Lactic Acid Calcium Phosphorus Magnesium AST ALT Lactate Dehydrogenase Total Bilirubin Direct Bilirubin CK-MB (CK-2) C-Reactive Protein NT-Pro-B Natriuret Pep Total Protein Albumin Arterial Blood Glucose Urine WBC (Auto) Urine Creatinine 01/27/20 01/27/20 01/27/20 05:43 12:06 17:16 WBC RBC Hgb Hct MCHC RDW MCV MCH Lymph % (Auto) [place] % (Auto) [place] # Eos # Lymph # (Auto) [place] # (Auto) Eos # (Auto) Seg Neutrophils % Seg Neuts % (Manual) Baso # (Auto) Lymphocytes % (Manual) Monocytes % (Manual) Eosinophils % (Manual) Basophils % (Manual) Seg Neutrophils # Seg Neutrophils # Man Lymphocytes # (Manual) Monocytes # (Manual) Eosinophils # (Manual) Nucleated RBC % Basophils # (Manual) PT INR APTT Heparin Anti-Xa Level ABG pH POC ABG pO2 ABG pO2 ABG HCO3 ABG O2 Saturation ABG Base Excess POC ABG pCO2 ABG Hemoglobin ABG Oxyhemoglobin ABG Chloride ABG Glucose Oxyhemoglobin Sodium Potassium Chloride Carbon Dioxide BUN Creatinine Glucose POC Glucose 143 H 142 H 128 H Lactic Acid Calcium Phosphorus Magnesium AST ALT Lactate Dehydrogenase Total Bilirubin Direct Bilirubin CK-MB (CK-2) C-Reactive Protein NT-Pro-B Natriuret Pep Total Protein Albumin Arterial Blood Glucose Urine WBC (Auto) Urine Creatinine 01/27/20 01/28/20 01/28/20 23:55 04:37 05:55 WBC RBC Hgb 9.4 L Hct 29.9 L MCHC RDW MCV MCH Lymph % (Auto) [place] % (Auto) [place] # Eos # Lymph # (Auto) [place] # (Auto) Eos # (Auto) Seg Neutrophils % Seg Neuts % (Manual) Baso # (Auto) Lymphocytes % (Manual) Monocytes % (Manual) Eosinophils % (Manual) Basophils % (Manual) Seg Neutrophils # Seg Neutrophils # Man Lymphocytes # (Manual) Monocytes # (Manual) Eosinophils # (Manual) Nucleated RBC % Basophils # (Manual) PT INR APTT Heparin Anti-Xa Level ABG pH POC ABG pO2 ABG pO2 ABG HCO3 ABG O2 Saturation ABG Base Excess POC ABG pCO2 ABG Hemoglobin ABG Oxyhemoglobin ABG Chloride ABG Glucose Oxyhemoglobin Sodium Potassium Chloride Carbon Dioxide BUN Creatinine Glucose POC Glucose 166 H 169 H Lactic Acid Calcium Phosphorus Magnesium AST ALT Lactate Dehydrogenase Total Bilirubin Direct Bilirubin CK-MB (CK-2) C-Reactive Protein NT-Pro-B Natriuret Pep Total Protein Albumin Arterial Blood Glucose Urine WBC (Auto) Urine Creatinine 01/28/20 01/28/20 01/28/20 11:58 17:26 23:46 WBC RBC Hgb Hct MCHC RDW MCV MCH Lymph % (Auto) [place] % (Auto) [place] # Eos # Lymph # (Auto) [place] # (Auto) Eos # (Auto) Seg Neutrophils % Seg Neuts % (Manual) Baso # (Auto) Lymphocytes % (Manual) Monocytes % (Manual) Eosinophils % (Manual) Basophils % (Manual) Seg Neutrophils # Seg Neutrophils # Man Lymphocytes # (Manual) Monocytes # (Manual) Eosinophils # (Manual) Nucleated RBC % Basophils # (Manual) PT INR APTT Heparin Anti-Xa Level ABG pH POC ABG pO2 ABG pO2 ABG HCO3 ABG O2 Saturation ABG Base Excess POC ABG pCO2 ABG Hemoglobin ABG Oxyhemoglobin ABG Chloride ABG Glucose Oxyhemoglobin Sodium Potassium Chloride Carbon Dioxide BUN Creatinine Glucose POC Glucose 130 H 126 H 150 H Lactic Acid Calcium Phosphorus Magnesium AST ALT Lactate Dehydrogenase Total Bilirubin Direct Bilirubin CK-MB (CK-2) C-Reactive Protein NT-Pro-B Natriuret Pep Total Protein Albumin Arterial Blood Glucose Urine WBC (Auto) Urine Creatinine 01/29/20 01/29/20 01/29/20 04:55 06:00 12:28 WBC RBC Hgb Hct MCHC RDW MCV MCH Lymph % (Auto) [place] % (Auto) [place] # Eos # Lymph # (Auto) [place] # (Auto) Eos # (Auto) Seg Neutrophils % Seg Neuts % (Manual) Baso # (Auto) Lymphocytes % (Manual) Monocytes % (Manual) Eosinophils % (Manual) Basophils % (Manual) Seg Neutrophils # Seg Neutrophils # Man Lymphocytes # (Manual) Monocytes # (Manual) Eosinophils # (Manual) Nucleated RBC % Basophils # (Manual) PT INR APTT Heparin Anti-Xa Level ABG pH POC ABG pO2 ABG pO2 ABG HCO3 ABG O2 Saturation ABG Base Excess POC ABG pCO2 ABG Hemoglobin ABG Oxyhemoglobin ABG Chloride ABG Glucose Oxyhemoglobin Sodium Potassium Chloride Carbon Dioxide 34 H BUN Creatinine 0.6 L Glucose 152 H POC Glucose 157 H 156 H Lactic Acid Calcium Phosphorus Magnesium AST ALT Lactate Dehydrogenase Total Bilirubin Direct Bilirubin CK-MB (CK-2) C-Reactive Protein NT-Pro-B Natriuret Pep Total Protein Albumin Arterial Blood Glucose Urine WBC (Auto) Urine Creatinine 01/29/20 01/30/20 01/30/20 19:06 00:29 05:39 WBC RBC Hgb Hct MCHC RDW MCV MCH Lymph % (Auto) [place] % (Auto) [place] # Eos # Lymph # (Auto) [place] # (Auto) Eos # (Auto) Seg Neutrophils % Seg Neuts % (Manual) Baso # (Auto) Lymphocytes % (Manual) Monocytes % (Manual) Eosinophils % (Manual) Basophils % (Manual) Seg Neutrophils # Seg Neutrophils # Man Lymphocytes # (Manual) Monocytes # (Manual) Eosinophils # (Manual) Nucleated RBC % Basophils # (Manual) PT INR APTT Heparin Anti-Xa Level ABG pH POC ABG pO2 ABG pO2 ABG HCO3 ABG O2 Saturation ABG Base Excess POC ABG pCO2 ABG Hemoglobin ABG Oxyhemoglobin ABG Chloride ABG Glucose Oxyhemoglobin Sodium Potassium Chloride Carbon Dioxide BUN Creatinine Glucose POC Glucose 152 H 132 H 159 H Lactic Acid Calcium Phosphorus Magnesium AST ALT Lactate Dehydrogenase Total Bilirubin Direct Bilirubin CK-MB (CK-2) C-Reactive Protein NT-Pro-B Natriuret Pep Total Protein Albumin Arterial Blood Glucose Urine WBC (Auto) Urine Creatinine 01/30/20 01/30/20 01/30/20 12:27 17:42 23:28 WBC RBC Hgb Hct MCHC RDW MCV MCH Lymph % (Auto) [place] % (Auto) [place] # Eos # Lymph # (Auto) [place] # (Auto) Eos # (Auto) Seg Neutrophils % Seg Neuts % (Manual) Baso # (Auto) Lymphocytes % (Manual) Monocytes % (Manual) Eosinophils % (Manual) Basophils % (Manual) Seg Neutrophils # Seg Neutrophils # Man Lymphocytes # (Manual) Monocytes # (Manual) Eosinophils # (Manual) Nucleated RBC % Basophils # (Manual) PT INR APTT Heparin Anti-Xa Level ABG pH POC ABG pO2 ABG pO2 ABG HCO3 ABG O2 Saturation ABG Base Excess POC ABG pCO2 ABG Hemoglobin ABG Oxyhemoglobin ABG Chloride ABG Glucose Oxyhemoglobin Sodium Potassium Chloride Carbon Dioxide BUN Creatinine Glucose POC Glucose 151 H 144 H 164 H Lactic Acid Calcium Phosphorus Magnesium AST ALT Lactate Dehydrogenase Total Bilirubin Direct Bilirubin CK-MB (CK-2) C-Reactive Protein NT-Pro-B Natriuret Pep Total Protein Albumin Arterial Blood Glucose Urine WBC (Auto) Urine Creatinine 01/31/20 01/31/20 01/31/20 05:51 11:51 18:06 WBC RBC Hgb Hct MCHC RDW MCV MCH Lymph % (Auto) [place] % (Auto) [place] # Eos # Lymph # (Auto) [place] # (Auto) Eos # (Auto) Seg Neutrophils % Seg Neuts % (Manual) Baso # (Auto) Lymphocytes % (Manual) Monocytes % (Manual) Eosinophils % (Manual) Basophils % (Manual) Seg Neutrophils # Seg Neutrophils # Man Lymphocytes # (Manual) Monocytes # (Manual) Eosinophils # (Manual) Nucleated RBC % Basophils # (Manual) PT INR APTT Heparin Anti-Xa Level ABG pH POC ABG pO2 ABG pO2 ABG HCO3 ABG O2 Saturation ABG Base Excess POC ABG pCO2 ABG Hemoglobin ABG Oxyhemoglobin ABG Chloride ABG Glucose Oxyhemoglobin Sodium Potassium Chloride Carbon Dioxide BUN Creatinine Glucose POC Glucose 131 H 167 H 210 H Lactic Acid Calcium Phosphorus Magnesium AST ALT Lactate Dehydrogenase Total Bilirubin Direct Bilirubin CK-MB (CK-2) C-Reactive Protein NT-Pro-B Natriuret Pep Total Protein Albumin Arterial Blood Glucose Urine WBC (Auto) Urine Creatinine 01/31/20 01/31/20 02/01/20 19:24 Unknown 00:34 WBC RBC Hgb Hct MCHC RDW MCV MCH Lymph % (Auto) [place] % (Auto) [place] # Eos # Lymph # (Auto) [place] # (Auto) Eos # (Auto) Seg Neutrophils % Seg Neuts % (Manual) Baso # (Auto) Lymphocytes % (Manual) Monocytes % (Manual) Eosinophils % (Manual) Basophils % (Manual) Seg Neutrophils # Seg Neutrophils # Man Lymphocytes # (Manual) Monocytes # (Manual) Eosinophils # (Manual) Nucleated RBC % Basophils # (Manual) PT INR APTT Heparin Anti-Xa Level ABG pH POC ABG pO2 ABG pO2 ABG HCO3 ABG O2 Saturation ABG Base Excess POC ABG pCO2 ABG Hemoglobin ABG Oxyhemoglobin ABG Chloride ABG Glucose Oxyhemoglobin Sodium Potassium Chloride 95.3 L Carbon Dioxide 33 H BUN 36 H Creatinine Glucose 187 H POC Glucose 116 H Lactic Acid Calcium Phosphorus Magnesium AST ALT Lactate Dehydrogenase Total Bilirubin Direct Bilirubin CK-MB (CK-2) C-Reactive Protein NT-Pro-B Natriuret Pep Total Protein Albumin Arterial Blood Glucose Urine WBC (Auto) Urine Creatinine 57.4 H 02/01/20 02/01/20 02/01/20 05:24 10:40 12:29 WBC RBC Hgb Hct MCHC RDW MCV MCH Lymph % (Auto) [place] % (Auto) [place] # Eos # Lymph # (Auto) [place] # (Auto) Eos # (Auto) Seg Neutrophils % Seg Neuts % (Manual) Baso # (Auto) Lymphocytes % (Manual) Monocytes % (Manual) Eosinophils % (Manual) Basophils % (Manual) Seg Neutrophils # Seg Neutrophils # Man Lymphocytes # (Manual) Monocytes # (Manual) Eosinophils # (Manual) Nucleated RBC % Basophils # (Manual) PT INR APTT Heparin Anti-Xa Level ABG pH POC ABG pO2 ABG pO2 ABG HCO3 ABG O2 Saturation ABG Base Excess POC ABG pCO2 ABG Hemoglobin ABG Oxyhemoglobin ABG Chloride ABG Glucose Oxyhemoglobin Sodium Potassium Chloride Carbon Dioxide BUN Creatinine Glucose POC Glucose 142 H 165 H 151 H Lactic Acid Calcium Phosphorus Magnesium AST ALT Lactate Dehydrogenase Total Bilirubin Direct Bilirubin CK-MB (CK-2) C-Reactive Protein NT-Pro-B Natriuret Pep Total Protein Albumin Arterial Blood Glucose Urine WBC (Auto) Urine Creatinine 02/01/20 02/01/20 02/02/20 17:16 23:23 06:36 WBC RBC Hgb Hct MCHC RDW MCV MCH Lymph % (Auto) [place] % (Auto) [place] # Eos # Lymph # (Auto) [place] # (Auto) Eos # (Auto) Seg Neutrophils % Seg Neuts % (Manual) Baso # (Auto) Lymphocytes % (Manual) Monocytes % (Manual) Eosinophils % (Manual) Basophils % (Manual) Seg Neutrophils # Seg Neutrophils # Man Lymphocytes # (Manual) Monocytes # (Manual) Eosinophils # (Manual) Nucleated RBC % Basophils # (Manual) PT INR APTT Heparin Anti-Xa Level ABG pH POC ABG pO2 ABG pO2 ABG HCO3 ABG O2 Saturation ABG Base Excess POC ABG pCO2 ABG Hemoglobin ABG Oxyhemoglobin ABG Chloride ABG Glucose Oxyhemoglobin Sodium Potassium Chloride Carbon Dioxide BUN Creatinine Glucose POC Glucose 137 H 145 H 181 H Lactic Acid Calcium Phosphorus Magnesium AST ALT Lactate Dehydrogenase Total Bilirubin Direct Bilirubin CK-MB (CK-2) C-Reactive Protein NT-Pro-B Natriuret Pep Total Protein Albumin Arterial Blood Glucose Urine WBC (Auto) Urine Creatinine 02/02/20 02/02/20 02/02/20 10:01 12:05 17:54 WBC RBC Hgb Hct MCHC RDW MCV MCH Lymph % (Auto) [place] % (Auto) [place] # Eos # Lymph # (Auto) [place] # (Auto) Eos # (Auto) Seg Neutrophils % Seg Neuts % (Manual) Baso # (Auto) Lymphocytes % (Manual) Monocytes % (Manual) Eosinophils % (Manual) Basophils % (Manual) Seg Neutrophils # Seg Neutrophils # Man Lymphocytes # (Manual) Monocytes # (Manual) Eosinophils # (Manual) Nucleated RBC % Basophils # (Manual) PT INR APTT Heparin Anti-Xa Level ABG pH POC ABG pO2 ABG pO2 ABG HCO3 ABG O2 Saturation ABG Base Excess POC ABG pCO2 ABG Hemoglobin ABG Oxyhemoglobin ABG Chloride ABG Glucose Oxyhemoglobin Sodium Potassium Chloride 95.3 L Carbon Dioxide BUN 44 H Creatinine Glucose 234 H POC Glucose 184 H 127 H Lactic Acid Calcium Phosphorus Magnesium AST 363 H ALT 457 H Lactate Dehydrogenase Total Bilirubin Direct Bilirubin CK-MB (CK-2) C-Reactive Protein NT-Pro-B Natriuret Pep Total Protein Albumin 3.0 L Arterial Blood Glucose Urine WBC (Auto) Urine Creatinine 02/02/20 02/03/20 02/03/20 23:47 05:32 07:04 WBC 13.0 H RBC Hgb 9.5 L Hct 30.8 L MCHC 31 L RDW 19.6 H MCV 81 L MCH 25 L Lymph % (Auto) [place] % (Auto) 9.4 H [place] # Eos # Lymph # (Auto) [place] # (Auto) 1.2 H Eos # (Auto) Seg Neutrophils % 72.3 H Seg Neuts % (Manual) Baso # (Auto) Lymphocytes % (Manual) Monocytes % (Manual) Eosinophils % (Manual) Basophils % (Manual) Seg Neutrophils # 9.4 H Seg Neutrophils # Man Lymphocytes # (Manual) Monocytes # (Manual) Eosinophils # (Manual) Nucleated RBC % Basophils # (Manual) PT INR APTT Heparin Anti-Xa Level ABG pH POC ABG pO2 ABG pO2 ABG HCO3 ABG O2 Saturation ABG Base Excess POC ABG pCO2 ABG Hemoglobin ABG Oxyhemoglobin ABG Chloride ABG Glucose Oxyhemoglobin Sodium Potassium Chloride Carbon Dioxide BUN Creatinine Glucose POC Glucose 124 H 129 H Lactic Acid Calcium Phosphorus Magnesium AST ALT Lactate Dehydrogenase Total Bilirubin Direct Bilirubin CK-MB (CK-2) C-Reactive Protein NT-Pro-B Natriuret Pep Total Protein Albumin Arterial Blood Glucose Urine WBC (Auto) Urine Creatinine 02/03/20 02/03/20 02/03/20 07:04 11:32 12:49 WBC RBC Hgb Hct MCHC RDW MCV MCH Lymph % (Auto) [place] % (Auto) [place] # Eos # Lymph # (Auto) [place] # (Auto) Eos # (Auto) Seg Neutrophils % Seg Neuts % (Manual) Baso # (Auto) Lymphocytes % (Manual) Monocytes % (Manual) Eosinophils % (Manual) Basophils % (Manual) Seg Neutrophils # Seg Neutrophils # Man Lymphocytes # (Manual) Monocytes # (Manual) Eosinophils # (Manual) Nucleated RBC % Basophils # (Manual) PT INR APTT Heparin Anti-Xa Level ABG pH POC ABG pO2 ABG pO2 ABG HCO3 ABG O2 Saturation ABG Base Excess POC ABG pCO2 ABG Hemoglobin ABG Oxyhemoglobin ABG Chloride ABG Glucose Oxyhemoglobin Sodium Potassium Chloride 97.9 L Carbon Dioxide 33 H BUN 39 H Creatinine Glucose 119 H POC Glucose 138 H Lactic Acid Calcium Phosphorus Magnesium 2.60 H AST ALT Lactate Dehydrogenase Total Bilirubin Direct Bilirubin CK-MB (CK-2) C-Reactive Protein NT-Pro-B Natriuret Pep Total Protein Albumin Arterial Blood Glucose Urine WBC (Auto) Urine Creatinine 02/03/20 02/04/20 02/04/20 18:28 16:24 16:24 WBC RBC 3.38 L Hgb 8.6 L Hct 26.9 L MCHC RDW 19.5 H MCV 80 L MCH 26 L Lymph % (Auto) [place] % (Auto) [place] # Eos # Lymph # (Auto) [place] # (Auto) Eos # (Auto) Seg Neutrophils % Seg Neuts % (Manual) Baso # (Auto) Lymphocytes % (Manual) Monocytes % (Manual) Eosinophils % (Manual) Basophils % (Manual) Seg Neutrophils # Seg Neutrophils # Man Lymphocytes # (Manual) Monocytes # (Manual) Eosinophils # (Manual) Nucleated RBC % Basophils # (Manual) PT INR APTT Heparin Anti-Xa Level ABG pH POC ABG pO2 ABG pO2 ABG HCO3 ABG O2 Saturation ABG Base Excess POC ABG pCO2 ABG Hemoglobin ABG Oxyhemoglobin ABG Chloride ABG Glucose Oxyhemoglobin Sodium Potassium 3.4 L Chloride Carbon Dioxide 31 H BUN 37 H Creatinine Glucose 70 L POC Glucose 118 H Lactic Acid Calcium Phosphorus Magnesium AST 169 H ALT 394 H Lactate Dehydrogenase Total Bilirubin 1.50 H Direct Bilirubin CK-MB (CK-2) C-Reactive Protein NT-Pro-B Natriuret Pep Total Protein Albumin 2.9 L Arterial Blood Glucose Urine WBC (Auto) Urine Creatinine 02/05/20 02/05/20 02/05/20 00:41 06:37 17:14 WBC RBC Hgb Hct MCHC RDW MCV MCH Lymph % (Auto) [place] % (Auto) [place] # Eos # Lymph # (Auto) [place] # (Auto) Eos # (Auto) Seg Neutrophils % Seg Neuts % (Manual) Baso # (Auto) Lymphocytes % (Manual) Monocytes % (Manual) Eosinophils % (Manual) Basophils % (Manual) Seg Neutrophils # Seg Neutrophils # Man Lymphocytes # (Manual) Monocytes # (Manual) Eosinophils # (Manual) Nucleated RBC % Basophils # (Manual) PT INR APTT Heparin Anti-Xa Level ABG pH POC ABG pO2 ABG pO2 ABG HCO3 ABG O2 Saturation ABG Base Excess POC ABG pCO2 ABG Hemoglobin ABG Oxyhemoglobin ABG Chloride ABG Glucose Oxyhemoglobin Sodium Potassium 3.1 L Chloride Carbon Dioxide 35 H BUN 32 H Creatinine 0.7 L Glucose POC Glucose 69 L 127 H Lactic Acid Calcium Phosphorus Magnesium AST 134 H ALT 352 H Lactate Dehydrogenase Total Bilirubin 1.60 H Direct Bilirubin CK-MB (CK-2) C-Reactive Protein NT-Pro-B Natriuret Pep Total Protein Albumin 2.9 L Arterial Blood Glucose Urine WBC (Auto) Urine Creatinine 02/05/20 02/06/20 02/06/20 23:43 05:32 08:01 WBC RBC Hgb Hct MCHC RDW MCV MCH Lymph % (Auto) [place] % (Auto) [place] # Eos # Lymph # (Auto) [place] # (Auto) Eos # (Auto) Seg Neutrophils % Seg Neuts % (Manual) Baso # (Auto) Lymphocytes % (Manual) Monocytes % (Manual) Eosinophils % (Manual) Basophils % (Manual) Seg Neutrophils # Seg Neutrophils # Man Lymphocytes # (Manual) Monocytes # (Manual) Eosinophils # (Manual) Nucleated RBC % Basophils # (Manual) PT INR APTT Heparin Anti-Xa Level ABG pH POC ABG pO2 ABG pO2 ABG HCO3 ABG O2 Saturation ABG Base Excess POC ABG pCO2 ABG Hemoglobin ABG Oxyhemoglobin ABG Chloride ABG Glucose Oxyhemoglobin Sodium Potassium Chloride Carbon Dioxide BUN 40 H Creatinine Glucose 132 H POC Glucose 129 H 131 H Lactic Acid Calcium Phosphorus Magnesium AST ALT Lactate Dehydrogenase Total Bilirubin Direct Bilirubin CK-MB (CK-2) C-Reactive Protein NT-Pro-B Natriuret Pep Total Protein Albumin Arterial Blood Glucose Urine WBC (Auto) Urine Creatinine 02/06/20 02/06/20 02/06/20 11:51 16:28 17:32 WBC RBC Hgb Hct MCHC RDW MCV MCH Lymph % (Auto) [place] % (Auto) [place] # Eos # Lymph # (Auto) [place] # (Auto) Eos # (Auto) Seg Neutrophils % Seg Neuts % (Manual) Baso # (Auto) Lymphocytes % (Manual) Monocytes % (Manual) Eosinophils % (Manual) Basophils % (Manual) Seg Neutrophils # Seg Neutrophils # Man Lymphocytes # (Manual) Monocytes # (Manual) Eosinophils # (Manual) Nucleated RBC % Basophils # (Manual) PT INR APTT Heparin Anti-Xa Level ABG pH POC ABG pO2 ABG pO2 ABG HCO3 ABG O2 Saturation ABG Base Excess POC ABG pCO2 ABG Hemoglobin ABG Oxyhemoglobin ABG Chloride ABG Glucose Oxyhemoglobin Sodium Potassium Chloride Carbon Dioxide BUN Creatinine Glucose POC Glucose 167 H 129 H Lactic Acid Calcium Phosphorus Magnesium AST 824 H ALT 948 H Lactate Dehydrogenase Total Bilirubin 1.70 H Direct Bilirubin 1.2 H CK-MB (CK-2) C-Reactive Protein NT-Pro-B Natriuret Pep Total Protein Albumin 2.9 L Arterial Blood Glucose Urine WBC (Auto) Urine Creatinine 02/07/20 02/07/20 02/07/20 00:11 04:57 04:57 WBC RBC Hgb 9.2 L Hct 29.7 L MCHC 31 L RDW 20.2 H MCV 80 L MCH 25 L Lymph % (Auto) [place] % (Auto) [place] # Eos # Lymph # (Auto) [place] # (Auto) Eos # (Auto) Seg Neutrophils % Seg Neuts % (Manual) Baso # (Auto) Lymphocytes % (Manual) Monocytes % (Manual) Eosinophils % (Manual) Basophils % (Manual) Seg Neutrophils # Seg Neutrophils # Man Lymphocytes # (Manual) Monocytes # (Manual) Eosinophils # (Manual) Nucleated RBC % Basophils # (Manual) PT INR APTT Heparin Anti-Xa Level ABG pH POC ABG pO2 ABG pO2 ABG HCO3 ABG O2 Saturation ABG Base Excess POC ABG pCO2 ABG Hemoglobin ABG Oxyhemoglobin ABG Chloride ABG Glucose Oxyhemoglobin Sodium Potassium 3.4 L D Chloride Carbon Dioxide 32 H BUN 39 H Creatinine Glucose 106 H POC Glucose 121 H Lactic Acid Calcium Phosphorus Magnesium AST ALT Lactate Dehydrogenase Total Bilirubin Direct Bilirubin CK-MB (CK-2) C-Reactive Protein NT-Pro-B Natriuret Pep Total Protein Albumin Arterial Blood Glucose Urine WBC (Auto) Urine Creatinine 02/07/20 02/07/20 02/07/20 15:03 15:03 17:11 WBC RBC Hgb Hct MCHC RDW MCV MCH Lymph % (Auto) [place] % (Auto) [place] # Eos # Lymph # (Auto) [place] # (Auto) Eos # (Auto) Seg Neutrophils % Seg Neuts % (Manual) Baso # (Auto) Lymphocytes % (Manual) Monocytes % (Manual) Eosinophils % (Manual) Basophils % (Manual) Seg Neutrophils # Seg Neutrophils # Man Lymphocytes # (Manual) Monocytes # (Manual) Eosinophils # (Manual) Nucleated RBC % Basophils # (Manual) PT 27.0 H INR 2.46 H APTT Heparin Anti-Xa Level ABG pH POC ABG pO2 ABG pO2 ABG HCO3 ABG O2 Saturation ABG Base Excess POC ABG pCO2 ABG Hemoglobin ABG Oxyhemoglobin ABG Chloride ABG Glucose Oxyhemoglobin Sodium Potassium Chloride Carbon Dioxide BUN Creatinine Glucose POC Glucose 109 H Lactic Acid Calcium Phosphorus Magnesium AST 424 H ALT 796 H Lactate Dehydrogenase Total Bilirubin 1.60 H Direct Bilirubin 1.2 H CK-MB (CK-2) C-Reactive Protein NT-Pro-B Natriuret Pep Total Protein Albumin 2.9 L Arterial Blood Glucose Urine WBC (Auto) Urine Creatinine 02/08/20 02/08/20 02/08/20 12:14 17:44 19:00 WBC RBC Hgb Hct MCHC RDW MCV MCH Lymph % (Auto) [place] % (Auto) [place] # Eos # Lymph # (Auto) [place] # (Auto) Eos # (Auto) Seg Neutrophils % Seg Neuts % (Manual) Baso # (Auto) Lymphocytes % (Manual) Monocytes % (Manual) Eosinophils % (Manual) Basophils % (Manual) Seg Neutrophils # Seg Neutrophils # Man Lymphocytes # (Manual) Monocytes # (Manual) Eosinophils # (Manual) Nucleated RBC % Basophils # (Manual) PT INR APTT Heparin Anti-Xa Level ABG pH POC ABG pO2 ABG pO2 ABG HCO3 ABG O2 Saturation ABG Base Excess POC ABG pCO2 ABG Hemoglobin ABG Oxyhemoglobin ABG Chloride ABG Glucose Oxyhemoglobin Sodium Potassium Chloride Carbon Dioxide BUN Creatinine Glucose POC Glucose 111 H 107 H Lactic Acid Calcium Phosphorus Magnesium AST 309 H ALT 650 H Lactate Dehydrogenase Total Bilirubin 1.30 H Direct Bilirubin 0.9 H CK-MB (CK-2) C-Reactive Protein NT-Pro-B Natriuret Pep Total Protein 6.2 L Albumin 2.7 L Arterial Blood Glucose Urine WBC (Auto) Urine Creatinine 02/09/20 02/09/20 02/09/20 05:41 12:28 18:07 WBC RBC Hgb Hct MCHC RDW MCV MCH Lymph % (Auto) [place] % (Auto) [place] # Eos # Lymph # (Auto) [place] # (Auto) Eos # (Auto) Seg Neutrophils % Seg Neuts % (Manual) Baso # (Auto) Lymphocytes % (Manual) Monocytes % (Manual) Eosinophils % (Manual) Basophils % (Manual) Seg Neutrophils # Seg Neutrophils # Man Lymphocytes # (Manual) Monocytes # (Manual) Eosinophils # (Manual) Nucleated RBC % Basophils # (Manual) PT INR APTT Heparin Anti-Xa Level ABG pH POC ABG pO2 ABG pO2 ABG HCO3 ABG O2 Saturation ABG Base Excess POC ABG pCO2 ABG Hemoglobin ABG Oxyhemoglobin ABG Chloride ABG Glucose Oxyhemoglobin Sodium Potassium Chloride Carbon Dioxide BUN Creatinine Glucose POC Glucose 113 H 140 H 143 H Lactic Acid Calcium Phosphorus Magnesium AST ALT Lactate Dehydrogenase Total Bilirubin Direct Bilirubin CK-MB (CK-2) C-Reactive Protein NT-Pro-B Natriuret Pep Total Protein Albumin Arterial Blood Glucose Urine WBC (Auto) Urine Creatinine 02/09/20 02/09/20 02/10/20 21:40 23:45 06:00 WBC RBC Hgb Hct MCHC RDW MCV MCH Lymph % (Auto) [place] % (Auto) [place] # Eos # Lymph # (Auto) [place] # (Auto) Eos # (Auto) Seg Neutrophils % Seg Neuts % (Manual) Baso # (Auto) Lymphocytes % (Manual) Monocytes % (Manual) Eosinophils % (Manual) Basophils % (Manual) Seg Neutrophils # Seg Neutrophils # Man Lymphocytes # (Manual) Monocytes # (Manual) Eosinophils # (Manual) Nucleated RBC % Basophils # (Manual) PT INR APTT Heparin Anti-Xa Level ABG pH POC ABG pO2 ABG pO2 59.8 L ABG HCO3 33.3 H ABG O2 Saturation 88.9 L ABG Base Excess 7.4 H POC ABG pCO2 ABG Hemoglobin 10.4 L ABG Oxyhemoglobin ABG Chloride ABG Glucose Oxyhemoglobin 86.3 L Sodium Potassium Chloride Carbon Dioxide BUN Creatinine Glucose POC Glucose 127 H 114 H Lactic Acid Calcium Phosphorus Magnesium AST ALT Lactate Dehydrogenase Total Bilirubin Direct Bilirubin CK-MB (CK-2) C-Reactive Protein NT-Pro-B Natriuret Pep Total Protein Albumin Arterial Blood Glucose Urine WBC (Auto) Urine Creatinine 02/10/20 02/10/20 02/10/20 07:40 07:40 13:38 WBC 11.5 H RBC Hgb 10.6 L Hct 34.7 L MCHC 31 L RDW 19.8 H MCV 79 L MCH 24 L Lymph % (Auto) [place] % (Auto) 9.2 H [place] # Eos # Lymph # (Auto) [place] # (Auto) 1.1 H Eos # (Auto) Seg Neutrophils % Seg Neuts % (Manual) Baso # (Auto) Lymphocytes % (Manual) Monocytes % (Manual) Eosinophils % (Manual) Basophils % (Manual) Seg Neutrophils # Seg Neutrophils # Man Lymphocytes # (Manual) Monocytes # (Manual) Eosinophils # (Manual) Nucleated RBC % Basophils # (Manual) PT INR APTT Heparin Anti-Xa Level ABG pH POC ABG pO2 ABG pO2 ABG HCO3 ABG O2 Saturation ABG Base Excess POC ABG pCO2 ABG Hemoglobin ABG Oxyhemoglobin ABG Chloride ABG Glucose Oxyhemoglobin Sodium 151 H Potassium Chloride 107.2 H Carbon Dioxide 36 H BUN 25 H Creatinine 0.7 L Glucose 114 H POC Glucose 116 H Lactic Acid Calcium Phosphorus Magnesium 2.40 H AST ALT Lactate Dehydrogenase Total Bilirubin Direct Bilirubin CK-MB (CK-2) C-Reactive Protein NT-Pro-B Natriuret Pep Total Protein Albumin Arterial Blood Glucose Urine WBC (Auto) Urine Creatinine 02/10/20 02/11/20 02/11/20 17:44 05:47 12:21 WBC RBC Hgb Hct MCHC RDW MCV MCH Lymph % (Auto) [place] % (Auto) [place] # Eos # Lymph # (Auto) [place] # (Auto) Eos # (Auto) Seg Neutrophils % Seg Neuts % (Manual) Baso # (Auto) Lymphocytes % (Manual) Monocytes % (Manual) Eosinophils % (Manual) Basophils % (Manual) Seg Neutrophils # Seg Neutrophils # Man Lymphocytes # (Manual) Monocytes # (Manual) Eosinophils # (Manual) Nucleated RBC % Basophils # (Manual) PT INR APTT Heparin Anti-Xa Level ABG pH POC ABG pO2 ABG pO2 ABG HCO3 ABG O2 Saturation ABG Base Excess POC ABG pCO2 ABG Hemoglobin ABG Oxyhemoglobin ABG Chloride ABG Glucose Oxyhemoglobin Sodium Potassium Chloride Carbon Dioxide BUN Creatinine Glucose POC Glucose 139 H 173 H 143 H Lactic Acid Calcium Phosphorus Magnesium AST ALT Lactate Dehydrogenase Total Bilirubin Direct Bilirubin CK-MB (CK-2) C-Reactive Protein NT-Pro-B Natriuret Pep Total Protein Albumin Arterial Blood Glucose Urine WBC (Auto) Urine Creatinine 02/11/20 02/11/20 02/12/20 13:43 14:11 00:15 WBC RBC Hgb Hct MCHC RDW MCV MCH Lymph % (Auto) [place] % (Auto) [place] # Eos # Lymph # (Auto) [place] # (Auto) Eos # (Auto) Seg Neutrophils % Seg Neuts % (Manual) Baso # (Auto) Lymphocytes % (Manual) Monocytes % (Manual) Eosinophils % (Manual) Basophils % (Manual) Seg Neutrophils # Seg Neutrophils # Man Lymphocytes # (Manual) Monocytes # (Manual) Eosinophils # (Manual) Nucleated RBC % Basophils # (Manual) PT INR APTT Heparin Anti-Xa Level ABG pH 7.502 H POC ABG pO2 77.7 L ABG pO2 ABG HCO3 ABG O2 Saturation ABG Base Excess POC ABG pCO2 ABG Hemoglobin 11.1 L ABG Oxyhemoglobin ABG Chloride 108.0 H ABG Glucose 151 H Oxyhemoglobin Sodium Potassium Chloride Carbon Dioxide BUN Creatinine Glucose POC Glucose 130 H 125 H Lactic Acid Calcium Phosphorus Magnesium AST ALT Lactate Dehydrogenase Total Bilirubin Direct Bilirubin CK-MB (CK-2) C-Reactive Protein NT-Pro-B Natriuret Pep Total Protein Albumin Arterial Blood Glucose 151 H Urine WBC (Auto) Urine Creatinine 02/12/20 02/12/20 02/12/20 04:56 04:56 17:42 WBC RBC Hgb 9.9 L Hct 31.8 L MCHC 31 L RDW 19.4 H MCV 79 L MCH 25 L Lymph % (Auto) [place] % (Auto) 10.3 H [place] # Eos # Lymph # (Auto) [place] # (Auto) 1.0 H Eos # (Auto) Seg Neutrophils % Seg Neuts % (Manual) Baso # (Auto) Lymphocytes % (Manual) Monocytes % (Manual) Eosinophils % (Manual) Basophils % (Manual) Seg Neutrophils # Seg Neutrophils # Man Lymphocytes # (Manual) Monocytes # (Manual) Eosinophils # (Manual) Nucleated RBC % Basophils # (Manual) PT INR APTT Heparin Anti-Xa Level ABG pH POC ABG pO2 ABG pO2 ABG HCO3 ABG O2 Saturation ABG Base Excess POC ABG pCO2 ABG Hemoglobin ABG Oxyhemoglobin ABG Chloride ABG Glucose Oxyhemoglobin Sodium 149 H Potassium Chloride 108.6 H Carbon Dioxide BUN 28 H Creatinine 0.7 L Glucose 108 H POC Glucose 113 H Lactic Acid Calcium Phosphorus Magnesium AST ALT Lactate Dehydrogenase Total Bilirubin Direct Bilirubin CK-MB (CK-2) C-Reactive Protein NT-Pro-B Natriuret Pep Total Protein Albumin Arterial Blood Glucose Urine WBC (Auto) Urine Creatinine 02/13/20 02/13/20 02/13/20 00:39 05:36 12:25 WBC RBC Hgb Hct MCHC RDW MCV MCH Lymph % (Auto) [place] % (Auto) [place] # Eos # Lymph # (Auto) [place] # (Auto) Eos # (Auto) Seg Neutrophils % Seg Neuts % (Manual) Baso # (Auto) Lymphocytes % (Manual) Monocytes % (Manual) Eosinophils % (Manual) Basophils % (Manual) Seg Neutrophils # Seg Neutrophils # Man Lymphocytes # (Manual) Monocytes # (Manual) Eosinophils # (Manual) Nucleated RBC % Basophils # (Manual) PT INR APTT Heparin Anti-Xa Level ABG pH POC ABG pO2 ABG pO2 ABG HCO3 ABG O2 Saturation ABG Base Excess POC ABG pCO2 ABG Hemoglobin ABG Oxyhemoglobin ABG Chloride ABG Glucose Oxyhemoglobin Sodium Potassium Chloride Carbon Dioxide BUN Creatinine Glucose POC Glucose 129 H 126 H 129 H Lactic Acid Calcium Phosphorus Magnesium AST ALT Lactate Dehydrogenase Total Bilirubin Direct Bilirubin CK-MB (CK-2) C-Reactive Protein NT-Pro-B Natriuret Pep Total Protein Albumin Arterial Blood Glucose Urine WBC (Auto) Urine Creatinine 02/13/20 02/14/20 02/14/20 17:59 00:15 05:41 WBC RBC Hgb Hct MCHC RDW MCV MCH Lymph % (Auto) [place] % (Auto) [place] # Eos # Lymph # (Auto) [place] # (Auto) Eos # (Auto) Seg Neutrophils % Seg Neuts % (Manual) Baso # (Auto) Lymphocytes % (Manual) Monocytes % (Manual) Eosinophils % (Manual) Basophils % (Manual) Seg Neutrophils # Seg Neutrophils # Man Lymphocytes # (Manual) Monocytes # (Manual) Eosinophils # (Manual) Nucleated RBC % Basophils # (Manual) PT INR APTT Heparin Anti-Xa Level ABG pH POC ABG pO2 ABG pO2 ABG HCO3 ABG O2 Saturation ABG Base Excess POC ABG pCO2 ABG Hemoglobin ABG Oxyhemoglobin ABG Chloride ABG Glucose Oxyhemoglobin Sodium Potassium Chloride Carbon Dioxide BUN Creatinine Glucose POC Glucose 153 H 130 H 130 H Lactic Acid Calcium Phosphorus Magnesium AST ALT Lactate Dehydrogenase Total Bilirubin Direct Bilirubin CK-MB (CK-2) C-Reactive Protein NT-Pro-B Natriuret Pep Total Protein Albumin Arterial Blood Glucose Urine WBC (Auto) Urine Creatinine 02/14/20 02/15/20 02/15/20 11:32 00:12 05:27 WBC RBC Hgb Hct MCHC RDW MCV MCH Lymph % (Auto) [place] % (Auto) [place] # Eos # Lymph # (Auto) [place] # (Auto) Eos # (Auto) Seg Neutrophils % Seg Neuts % (Manual) Baso # (Auto) Lymphocytes % (Manual) Monocytes % (Manual) Eosinophils % (Manual) Basophils % (Manual) Seg Neutrophils # Seg Neutrophils # Man Lymphocytes # (Manual) Monocytes # (Manual) Eosinophils # (Manual) Nucleated RBC % Basophils # (Manual) PT INR APTT Heparin Anti-Xa Level ABG pH POC ABG pO2 ABG pO2 ABG HCO3 ABG O2 Saturation ABG Base Excess POC ABG pCO2 ABG Hemoglobin ABG Oxyhemoglobin ABG Chloride ABG Glucose Oxyhemoglobin Sodium Potassium Chloride Carbon Dioxide BUN Creatinine Glucose POC Glucose 157 H 124 H 111 H Lactic Acid Calcium Phosphorus Magnesium AST ALT Lactate Dehydrogenase Total Bilirubin Direct Bilirubin CK-MB (CK-2) C-Reactive Protein NT-Pro-B Natriuret Pep Total Protein Albumin Arterial Blood Glucose Urine WBC (Auto) Urine Creatinine 02/15/20 02/15/20 02/15/20 06:59 06:59 11:14 WBC RBC Hgb 10.4 L Hct 33.7 L MCHC 31 L RDW 19.4 H MCV 80 L MCH 24 L Lymph % (Auto) [place] % (Auto) [place] # Eos # Lymph # (Auto) [place] # (Auto) Eos # (Auto) Seg Neutrophils % Seg Neuts % (Manual) Baso # (Auto) Lymphocytes % (Manual) Monocytes % (Manual) Eosinophils % (Manual) Basophils % (Manual) 2.0 H Seg Neutrophils # Seg Neutrophils # Man Lymphocytes # (Manual) Monocytes # (Manual) Eosinophils # (Manual) Nucleated RBC % 1.0 H Basophils # (Manual) 0.2 H PT INR APTT Heparin Anti-Xa Level ABG pH POC ABG pO2 ABG pO2 ABG HCO3 ABG O2 Saturation ABG Base Excess POC ABG pCO2 ABG Hemoglobin ABG Oxyhemoglobin ABG Chloride ABG Glucose Oxyhemoglobin Sodium 149 H Potassium Chloride 108.4 H Carbon Dioxide 31 H BUN 40 H Creatinine 0.7 L Glucose 150 H POC Glucose 128 H Lactic Acid Calcium Phosphorus Magnesium AST ALT Lactate Dehydrogenase Total Bilirubin Direct Bilirubin CK-MB (CK-2) C-Reactive Protein NT-Pro-B Natriuret Pep Total Protein Albumin Arterial Blood Glucose Urine WBC (Auto) Urine Creatinine 02/15/20 02/15/20 02/16/20 17:46 23:50 05:03 WBC RBC Hgb Hct MCHC RDW MCV MCH Lymph % (Auto) [place] % (Auto) [place] # Eos # Lymph # (Auto) [place] # (Auto) Eos # (Auto) Seg Neutrophils % Seg Neuts % (Manual) Baso # (Auto) Lymphocytes % (Manual) Monocytes % (Manual) Eosinophils % (Manual) Basophils % (Manual) Seg Neutrophils # Seg Neutrophils # Man Lymphocytes # (Manual) Monocytes # (Manual) Eosinophils # (Manual) Nucleated RBC % Basophils # (Manual) PT INR APTT Heparin Anti-Xa Level ABG pH POC ABG pO2 ABG pO2 ABG HCO3 ABG O2 Saturation ABG Base Excess POC ABG pCO2 ABG Hemoglobin ABG Oxyhemoglobin ABG Chloride ABG Glucose Oxyhemoglobin Sodium Potassium Chloride Carbon Dioxide BUN Creatinine Glucose POC Glucose 154 H 135 H 148 H Lactic Acid Calcium Phosphorus Magnesium AST ALT Lactate Dehydrogenase Total Bilirubin Direct Bilirubin CK-MB (CK-2) C-Reactive Protein NT-Pro-B Natriuret Pep Total Protein Albumin Arterial Blood Glucose Urine WBC (Auto) Urine Creatinine 02/16/20 02/16/20 02/16/20 07:53 11:28 17:52 WBC RBC Hgb Hct MCHC RDW MCV MCH Lymph % (Auto) [place] % (Auto) [place] # Eos # Lymph # (Auto) [place] # (Auto) Eos # (Auto) Seg Neutrophils % Seg Neuts % (Manual) Baso # (Auto) Lymphocytes % (Manual) Monocytes % (Manual) Eosinophils % (Manual) Basophils % (Manual) Seg Neutrophils # Seg Neutrophils # Man Lymphocytes # (Manual) Monocytes # (Manual) Eosinophils # (Manual) Nucleated RBC % Basophils # (Manual) PT INR APTT Heparin Anti-Xa Level ABG pH POC ABG pO2 ABG pO2 ABG HCO3 ABG O2 Saturation ABG Base Excess POC ABG pCO2 ABG Hemoglobin ABG Oxyhemoglobin ABG Chloride ABG Glucose Oxyhemoglobin Sodium Potassium Chloride 107.9 H Carbon Dioxide BUN 38 H Creatinine 0.6 L Glucose 151 H POC Glucose 123 H 152 H Lactic Acid Calcium Phosphorus Magnesium AST ALT Lactate Dehydrogenase Total Bilirubin Direct Bilirubin CK-MB (CK-2) C-Reactive Protein NT-Pro-B Natriuret Pep Total Protein Albumin Arterial Blood Glucose Urine WBC (Auto) Urine Creatinine 02/16/20 02/17/20 02/17/20 23:49 06:24 11:36 WBC RBC Hgb Hct MCHC RDW MCV MCH Lymph % (Auto) [place] % (Auto) [place] # Eos # Lymph # (Auto) [place] # (Auto) Eos # (Auto) Seg Neutrophils % Seg Neuts % (Manual) Baso # (Auto) Lymphocytes % (Manual) Monocytes % (Manual) Eosinophils % (Manual) Basophils % (Manual) Seg Neutrophils # Seg Neutrophils # Man Lymphocytes # (Manual) Monocytes # (Manual) Eosinophils # (Manual) Nucleated RBC % Basophils # (Manual) PT INR APTT Heparin Anti-Xa Level ABG pH POC ABG pO2 ABG pO2 ABG HCO3 ABG O2 Saturation ABG Base Excess POC ABG pCO2 ABG Hemoglobin ABG Oxyhemoglobin ABG Chloride ABG Glucose Oxyhemoglobin Sodium Potassium Chloride Carbon Dioxide BUN Creatinine Glucose POC Glucose 156 H 193 H 162 H Lactic Acid Calcium Phosphorus Magnesium AST ALT Lactate Dehydrogenase Total Bilirubin Direct Bilirubin CK-MB (CK-2) C-Reactive Protein NT-Pro-B Natriuret Pep Total Protein Albumin Arterial Blood Glucose Urine WBC (Auto) Urine Creatinine 02/17/20 02/17/20 02/18/20 17:55 23:28 05:11 WBC RBC Hgb Hct MCHC RDW MCV MCH Lymph % (Auto) [place] % (Auto) [place] # Eos # Lymph # (Auto) [place] # (Auto) Eos # (Auto) Seg Neutrophils % Seg Neuts % (Manual) Baso # (Auto) Lymphocytes % (Manual) Monocytes % (Manual) Eosinophils % (Manual) Basophils % (Manual) Seg Neutrophils # Seg Neutrophils # Man Lymphocytes # (Manual) Monocytes # (Manual) Eosinophils # (Manual) Nucleated RBC % Basophils # (Manual) PT INR APTT Heparin Anti-Xa Level ABG pH POC ABG pO2 ABG pO2 ABG HCO3 ABG O2 Saturation ABG Base Excess POC ABG pCO2 ABG Hemoglobin ABG Oxyhemoglobin ABG Chloride ABG Glucose Oxyhemoglobin Sodium Potassium Chloride Carbon Dioxide BUN Creatinine Glucose POC Glucose 165 H 146 H 122 H Lactic Acid Calcium Phosphorus Magnesium AST ALT Lactate Dehydrogenase Total Bilirubin Direct Bilirubin CK-MB (CK-2) C-Reactive Protein NT-Pro-B Natriuret Pep Total Protein Albumin Arterial Blood Glucose Urine WBC (Auto) Urine Creatinine 02/18/20 02/18/20 02/19/20 12:24 17:29 00:01 WBC RBC Hgb Hct MCHC RDW MCV MCH Lymph % (Auto) [place] % (Auto) [place] # Eos # Lymph # (Auto) [place] # (Auto) Eos # (Auto) Seg Neutrophils % Seg Neuts % (Manual) Baso # (Auto) Lymphocytes % (Manual) Monocytes % (Manual) Eosinophils % (Manual) Basophils % (Manual) Seg Neutrophils # Seg Neutrophils # Man Lymphocytes # (Manual) Monocytes # (Manual) Eosinophils # (Manual) Nucleated RBC % Basophils # (Manual) PT INR APTT Heparin Anti-Xa Level ABG pH POC ABG pO2 ABG pO2 ABG HCO3 ABG O2 Saturation ABG Base Excess POC ABG pCO2 ABG Hemoglobin ABG Oxyhemoglobin ABG Chloride ABG Glucose Oxyhemoglobin Sodium Potassium Chloride Carbon Dioxide BUN Creatinine Glucose POC Glucose 162 H 136 H 145 H Lactic Acid Calcium Phosphorus Magnesium AST ALT Lactate Dehydrogenase Total Bilirubin Direct Bilirubin CK-MB (CK-2) C-Reactive Protein NT-Pro-B Natriuret Pep Total Protein Albumin Arterial Blood Glucose Urine WBC (Auto) Urine Creatinine 02/19/20 02/19/20 02/19/20 05:53 11:44 17:32 WBC RBC Hgb Hct MCHC RDW MCV MCH Lymph % (Auto) [place] % (Auto) [place] # Eos # Lymph # (Auto) [place] # (Auto) Eos # (Auto) Seg Neutrophils % Seg Neuts % (Manual) Baso # (Auto) Lymphocytes % (Manual) Monocytes % (Manual) Eosinophils % (Manual) Basophils % (Manual) Seg Neutrophils # Seg Neutrophils # Man Lymphocytes # (Manual) Monocytes # (Manual) Eosinophils # (Manual) Nucleated RBC % Basophils # (Manual) PT INR APTT Heparin Anti-Xa Level ABG pH POC ABG pO2 ABG pO2 ABG HCO3 ABG O2 Saturation ABG Base Excess POC ABG pCO2 ABG Hemoglobin ABG Oxyhemoglobin ABG Chloride ABG Glucose Oxyhemoglobin Sodium Potassium Chloride Carbon Dioxide BUN Creatinine Glucose POC Glucose 116 H 120 H 154 H Lactic Acid Calcium Phosphorus Magnesium AST ALT Lactate Dehydrogenase Total Bilirubin Direct Bilirubin CK-MB (CK-2) C-Reactive Protein NT-Pro-B Natriuret Pep Total Protein Albumin Arterial Blood Glucose Urine WBC (Auto) Urine Creatinine 02/19/20 02/20/20 02/20/20 23:43 00:24 00:24 WBC RBC Hgb 9.4 L Hct 30.0 L MCHC 31 L RDW 20.4 H MCV 79 L MCH 25 L Lymph % (Auto) [place] % (Auto) 8.5 H [place] # Eos # Lymph # (Auto) [place] # (Auto) Eos # (Auto) Seg Neutrophils % Seg Neuts % (Manual) Baso # (Auto) Lymphocytes % (Manual) Monocytes % (Manual) Eosinophils % (Manual) Basophils % (Manual) Seg Neutrophils # Seg Neutrophils # Man Lymphocytes # (Manual) Monocytes # (Manual) Eosinophils # (Manual) Nucleated RBC % Basophils # (Manual) PT INR APTT Heparin Anti-Xa Level ABG pH POC ABG pO2 ABG pO2 ABG HCO3 ABG O2 Saturation ABG Base Excess POC ABG pCO2 ABG Hemoglobin ABG Oxyhemoglobin ABG Chloride ABG Glucose Oxyhemoglobin Sodium 147 H Potassium 3.4 L Chloride Carbon Dioxide 31 H BUN 34 H Creatinine 0.5 L Glucose 135 H POC Glucose 122 H Lactic Acid Calcium Phosphorus Magnesium AST ALT Lactate Dehydrogenase Total Bilirubin Direct Bilirubin CK-MB (CK-2) C-Reactive Protein NT-Pro-B Natriuret Pep Total Protein Albumin Arterial Blood Glucose Urine WBC (Auto) Urine Creatinine 02/20/20 02/20/20 02/20/20 06:07 06:45 12:03 WBC RBC Hgb Hct MCHC RDW MCV MCH Lymph % (Auto) [place] % (Auto) [place] # Eos # Lymph # (Auto) [place] # (Auto) Eos # (Auto) Seg Neutrophils % Seg Neuts % (Manual) Baso # (Auto) Lymphocytes % (Manual) Monocytes % (Manual) Eosinophils % (Manual) Basophils % (Manual) Seg Neutrophils # Seg Neutrophils # Man Lymphocytes # (Manual) Monocytes # (Manual) Eosinophils # (Manual) Nucleated RBC % Basophils # (Manual) PT INR APTT Heparin Anti-Xa Level ABG pH 7.461 H POC ABG pO2 ABG pO2 ABG HCO3 33.3 H ABG O2 Saturation ABG Base Excess 8.4 H POC ABG pCO2 ABG Hemoglobin 10.0 L ABG Oxyhemoglobin ABG Chloride ABG Glucose Oxyhemoglobin 94.1 L Sodium Potassium Chloride Carbon Dioxide BUN Creatinine Glucose POC Glucose 109 H 128 H Lactic Acid Calcium Phosphorus Magnesium AST ALT Lactate Dehydrogenase Total Bilirubin Direct Bilirubin CK-MB (CK-2) C-Reactive Protein NT-Pro-B Natriuret Pep Total Protein Albumin Arterial Blood Glucose Urine WBC (Auto) Urine Creatinine 02/20/20 02/20/20 02/21/20 18:02 23:55 05:42 WBC RBC Hgb Hct MCHC RDW MCV MCH Lymph % (Auto) [place] % (Auto) [place] # Eos # Lymph # (Auto) [place] # (Auto) Eos # (Auto) Seg Neutrophils % Seg Neuts % (Manual) Baso # (Auto) Lymphocytes % (Manual) Monocytes % (Manual) Eosinophils % (Manual) Basophils % (Manual) Seg Neutrophils # Seg Neutrophils # Man Lymphocytes # (Manual) Monocytes # (Manual) Eosinophils # (Manual) Nucleated RBC % Basophils # (Manual) PT INR APTT Heparin Anti-Xa Level ABG pH POC ABG pO2 ABG pO2 ABG HCO3 ABG O2 Saturation ABG Base Excess POC ABG pCO2 ABG Hemoglobin ABG Oxyhemoglobin ABG Chloride ABG Glucose Oxyhemoglobin Sodium Potassium Chloride Carbon Dioxide BUN Creatinine Glucose POC Glucose 118 H 125 H 127 H Lactic Acid Calcium Phosphorus Magnesium AST ALT Lactate Dehydrogenase Total Bilirubin Direct Bilirubin CK-MB (CK-2) C-Reactive Protein NT-Pro-B Natriuret Pep Total Protein Albumin Arterial Blood Glucose Urine WBC (Auto) Urine Creatinine 02/21/20 02/21/20 02/21/20 12:10 17:35 23:40 WBC RBC Hgb Hct MCHC RDW MCV MCH Lymph % (Auto) [place] % (Auto) [place] # Eos # Lymph # (Auto) [place] # (Auto) Eos # (Auto) Seg Neutrophils % Seg Neuts % (Manual) Baso # (Auto) Lymphocytes % (Manual) Monocytes % (Manual) Eosinophils % (Manual) Basophils % (Manual) Seg Neutrophils # Seg Neutrophils # Man Lymphocytes # (Manual) Monocytes # (Manual) Eosinophils # (Manual) Nucleated RBC % Basophils # (Manual) PT INR APTT Heparin Anti-Xa Level ABG pH POC ABG pO2 ABG pO2 ABG HCO3 ABG O2 Saturation ABG Base Excess POC ABG pCO2 ABG Hemoglobin ABG Oxyhemoglobin ABG Chloride ABG Glucose Oxyhemoglobin Sodium Potassium Chloride Carbon Dioxide BUN Creatinine Glucose POC Glucose 128 H 113 H 125 H Lactic Acid Calcium Phosphorus Magnesium AST ALT Lactate Dehydrogenase Total Bilirubin Direct Bilirubin CK-MB (CK-2) C-Reactive Protein NT-Pro-B Natriuret Pep Total Protein Albumin Arterial Blood Glucose Urine WBC (Auto) Urine Creatinine 02/22/20 02/22/20 02/22/20 05:57 08:06 08:06 WBC RBC Hgb 10.8 L Hct 35.2 L MCHC 31 L RDW 21.8 H MCV 80 L MCH 25 L Lymph % (Auto) [place] % (Auto) [place] # Eos # Lymph # (Auto) [place] # (Auto) Eos # (Auto) Seg Neutrophils % 71.5 H Seg Neuts % (Manual) Baso # (Auto) Lymphocytes % (Manual) Monocytes % (Manual) Eosinophils % (Manual) Basophils % (Manual) Seg Neutrophils # Seg Neutrophils # Man Lymphocytes # (Manual) Monocytes # (Manual) Eosinophils # (Manual) Nucleated RBC % Basophils # (Manual) PT INR APTT Heparin Anti-Xa Level ABG pH POC ABG pO2 ABG pO2 ABG HCO3 ABG O2 Saturation ABG Base Excess POC ABG pCO2 ABG Hemoglobin ABG Oxyhemoglobin ABG Chloride ABG Glucose Oxyhemoglobin Sodium 146 H Potassium Chloride Carbon Dioxide 34 H BUN 21 H Creatinine 0.4 L Glucose 149 H POC Glucose 138 H Lactic Acid Calcium Phosphorus Magnesium AST ALT Lactate Dehydrogenase Total Bilirubin Direct Bilirubin CK-MB (CK-2) C-Reactive Protein NT-Pro-B Natriuret Pep Total Protein Albumin Arterial Blood Glucose Urine WBC (Auto) Urine Creatinine 02/22/20 02/22/20 02/22/20 11:47 17:11 23:25 WBC RBC Hgb Hct MCHC RDW MCV MCH Lymph % (Auto) [place] % (Auto) [place] # Eos # Lymph # (Auto) [place] # (Auto) Eos # (Auto) Seg Neutrophils % Seg Neuts % (Manual) Baso # (Auto) Lymphocytes % (Manual) Monocytes % (Manual) Eosinophils % (Manual) Basophils % (Manual) Seg Neutrophils # Seg Neutrophils # Man Lymphocytes # (Manual) Monocytes # (Manual) Eosinophils # (Manual) Nucleated RBC % Basophils # (Manual) PT INR APTT Heparin Anti-Xa Level ABG pH POC ABG pO2 ABG pO2 ABG HCO3 ABG O2 Saturation ABG Base Excess POC ABG pCO2 ABG Hemoglobin ABG Oxyhemoglobin ABG Chloride ABG Glucose Oxyhemoglobin Sodium Potassium Chloride Carbon Dioxide BUN Creatinine Glucose POC Glucose 149 H 144 H 142 H Lactic Acid Calcium Phosphorus Magnesium AST ALT Lactate Dehydrogenase Total Bilirubin Direct Bilirubin CK-MB (CK-2) C-Reactive Protein NT-Pro-B Natriuret Pep Total Protein Albumin Arterial Blood Glucose Urine WBC (Auto) Urine Creatinine 02/23/20 02/23/20 02/23/20 05:22 11:37 18:14 WBC RBC Hgb Hct MCHC RDW MCV MCH Lymph % (Auto) [place] % (Auto) [place] # Eos # Lymph # (Auto) [place] # (Auto) Eos # (Auto) Seg Neutrophils % Seg Neuts % (Manual) Baso # (Auto) Lymphocytes % (Manual) Monocytes % (Manual) Eosinophils % (Manual) Basophils % (Manual) Seg Neutrophils # Seg Neutrophils # Man Lymphocytes # (Manual) Monocytes # (Manual) Eosinophils # (Manual) Nucleated RBC % Basophils # (Manual) PT INR APTT Heparin Anti-Xa Level ABG pH POC ABG pO2 ABG pO2 ABG HCO3 ABG O2 Saturation ABG Base Excess POC ABG pCO2 ABG Hemoglobin ABG Oxyhemoglobin ABG Chloride ABG Glucose Oxyhemoglobin Sodium Potassium Chloride Carbon Dioxide BUN Creatinine Glucose POC Glucose 144 H 113 H 127 H Lactic Acid Calcium Phosphorus Magnesium AST ALT Lactate Dehydrogenase Total Bilirubin Direct Bilirubin CK-MB (CK-2) C-Reactive Protein NT-Pro-B Natriuret Pep Total Protein Albumin Arterial Blood Glucose Urine WBC (Auto) Urine Creatinine 02/23/20 02/24/20 02/24/20 23:45 05:50 11:24 WBC RBC Hgb Hct MCHC RDW MCV MCH Lymph % (Auto) [place] % (Auto) [place] # Eos # Lymph # (Auto) [place] # (Auto) Eos # (Auto) Seg Neutrophils % Seg Neuts % (Manual) Baso # (Auto) Lymphocytes % (Manual) Monocytes % (Manual) Eosinophils % (Manual) Basophils % (Manual) Seg Neutrophils # Seg Neutrophils # Man Lymphocytes # (Manual) Monocytes # (Manual) Eosinophils # (Manual) Nucleated RBC % Basophils # (Manual) PT INR APTT Heparin Anti-Xa Level ABG pH POC ABG pO2 ABG pO2 ABG HCO3 ABG O2 Saturation ABG Base Excess POC ABG pCO2 ABG Hemoglobin ABG Oxyhemoglobin ABG Chloride ABG Glucose Oxyhemoglobin Sodium Potassium Chloride Carbon Dioxide BUN Creatinine Glucose POC Glucose 123 H 117 H 126 H Lactic Acid Calcium Phosphorus Magnesium AST ALT Lactate Dehydrogenase Total Bilirubin Direct Bilirubin CK-MB (CK-2) C-Reactive Protein NT-Pro-B Natriuret Pep Total Protein Albumin Arterial Blood Glucose Urine WBC (Auto) Urine Creatinine 02/24/20 02/24/20 02/25/20 18:35 23:27 05:20 WBC RBC Hgb Hct MCHC RDW MCV MCH Lymph % (Auto) [place] % (Auto) [place] # Eos # Lymph # (Auto) [place] # (Auto) Eos # (Auto) Seg Neutrophils % Seg Neuts % (Manual) Baso # (Auto) Lymphocytes % (Manual) Monocytes % (Manual) Eosinophils % (Manual) Basophils % (Manual) Seg Neutrophils # Seg Neutrophils # Man Lymphocytes # (Manual) Monocytes # (Manual) Eosinophils # (Manual) Nucleated RBC % Basophils # (Manual) PT INR APTT Heparin Anti-Xa Level ABG pH POC ABG pO2 ABG pO2 ABG HCO3 ABG O2 Saturation ABG Base Excess POC ABG pCO2 ABG Hemoglobin ABG Oxyhemoglobin ABG Chloride ABG Glucose Oxyhemoglobin Sodium Potassium Chloride Carbon Dioxide BUN Creatinine Glucose POC Glucose 121 H 127 H 133 H Lactic Acid Calcium Phosphorus Magnesium AST ALT Lactate Dehydrogenase Total Bilirubin Direct Bilirubin CK-MB (CK-2) C-Reactive Protein NT-Pro-B Natriuret Pep Total Protein Albumin Arterial Blood Glucose Urine WBC (Auto) Urine Creatinine 02/25/20 02/25/20 02/25/20 12:08 17:26 23:33 WBC RBC Hgb Hct MCHC RDW MCV MCH Lymph % (Auto) [place] % (Auto) [place] # Eos # Lymph # (Auto) [place] # (Auto) Eos # (Auto) Seg Neutrophils % Seg Neuts % (Manual) Baso # (Auto) Lymphocytes % (Manual) Monocytes % (Manual) Eosinophils % (Manual) Basophils % (Manual) Seg Neutrophils # Seg Neutrophils # Man Lymphocytes # (Manual) Monocytes # (Manual) Eosinophils # (Manual) Nucleated RBC % Basophils # (Manual) PT INR APTT Heparin Anti-Xa Level ABG pH POC ABG pO2 ABG pO2 ABG HCO3 ABG O2 Saturation ABG Base Excess POC ABG pCO2 ABG Hemoglobin ABG Oxyhemoglobin ABG Chloride ABG Glucose Oxyhemoglobin Sodium Potassium Chloride Carbon Dioxide BUN Creatinine Glucose POC Glucose 109 H 120 H 120 H Lactic Acid Calcium Phosphorus Magnesium AST ALT Lactate Dehydrogenase Total Bilirubin Direct Bilirubin CK-MB (CK-2) C-Reactive Protein NT-Pro-B Natriuret Pep Total Protein Albumin Arterial Blood Glucose Urine WBC (Auto) Urine Creatinine 02/26/20 02/26/20 02/27/20 05:33 07:50 12:13 WBC RBC Hgb Hct MCHC RDW MCV MCH Lymph % (Auto) [place] % (Auto) [place] # Eos # Lymph # (Auto) [place] # (Auto) Eos # (Auto) Seg Neutrophils % Seg Neuts % (Manual) Baso # (Auto) Lymphocytes % (Manual) Monocytes % (Manual) Eosinophils % (Manual) Basophils % (Manual) Seg Neutrophils # Seg Neutrophils # Man Lymphocytes # (Manual) Monocytes # (Manual) Eosinophils # (Manual) Nucleated RBC % Basophils # (Manual) PT INR APTT Heparin Anti-Xa Level ABG pH POC ABG pO2 ABG pO2 ABG HCO3 ABG O2 Saturation ABG Base Excess POC ABG pCO2 ABG Hemoglobin ABG Oxyhemoglobin ABG Chloride ABG Glucose Oxyhemoglobin Sodium Potassium Chloride Carbon Dioxide BUN Creatinine Glucose POC Glucose 106 H 130 H Lactic Acid Calcium Phosphorus Magnesium AST ALT Lactate Dehydrogenase Total Bilirubin Direct Bilirubin CK-MB (CK-2) C-Reactive Protein NT-Pro-B Natriuret Pep Total Protein Albumin Arterial Blood Glucose Urine WBC (Auto) > 182.0 H Urine Creatinine Chest x-ray: other (none today) Allied health notes reviewed: nursing
--- NOTE | 2020-02-27 14:54 | Progress Note ---
Assessment and Plan Assessment and plan: --Ischemic cardiomyopathy Cardiology is following, status post cardiac catheterization on 01/22/2020; C oronary artery disease status post PCI and stent to the LAD Continue current cardiac medications --Acute on chronic hypoxemic respiratory failure; Patient has tracheostomy on vent Continue nebulizers, , trach care Wean off ventilator as tolerated Pulmonary critical following --Acute exacerbation of COPD; Patient is currently on ventilatory support Continue nebulizers --Left lower lobe PE; Continue Eliquis, ventilatory support --Acute right lower extremity DVT; Patient is on Eliquis --Bilateral multifocal pneumonia/community-acquired Completed antibiotics, improved --Severe sepsis/bilateral pneumonia: Completed antibiotics COVID-19 test; 11/24/2019; negative 11/26/2019; negative 12/29/2019: Negative --Paroxysmal atrial fibrillation; Now rate controlled, Stable on amiodarone and Eliquis --Acute on chronic combined systolic and diastolic congestive heart failure Ischemic cardiomyopathy left ventricular ejection fraction 40 to 45% --H/o CAD [[facility] 12/2018 in-stent restenosis] Patient is stable on current cardiac medications --Hypertensive emergency; present on admission Reasonable blood pressures, continue current antihypertensives As needed medications --History of alcohol abuse/alcohol withdrawal; Was on CIWA protocol, now stable --Oropharyngeal dysphagia; status post PEG placement Continue PEG feeds per protocol --History of partial small bowel obstruction; resolved --Obesity; BMI 34.7 Patient needs weight reduction when medically stable --Severe protein calorie malnutrition/hypoalbuminemia Nutrition supplements, dietitian following, PEG feeds --DVT prophylaxis;Eliquis --Full CODE STATUS Discharge planning 01/05; Pt stable. NGT output 650cc over 24 hours, bilious. No f/c, WBC within normal limits. cont NG suction and cont to hold TF 01/06: Abs series - mild improvement in small bowel distension in mid abdomen, normal gas/stool pattern in colon. NGT in duodenum. Continue to hold tube feeding, maintain NG tube with low intermittent suction. Patient's was updated by phone. Continue to provide supportive care and monitor clinically. 01/07: +BMs today and NGT/PEG output appears more gastric today. Plan to clamp NGT, if tolerates start TF from tomorrow. cont supportive care. 01/08; Gastric output decreased over last 24 hours. NGT has been clamped x 24 hours. plan to dc NGT and to start TTF via PEG - vital HF @10cc/hr 01/09: clinically stable, tolerating TF. monitor BMP, wean off from vent as tolerated clinically stable, on TF. wean off vent as tolerated 01/11: wean off from vent, cont to monitor, on TF 01/12: wean off from vent, cont to monitor, on TF. need placement - unfunded 01/13; remains on ventilatory support, unable to wean, DC planning possible LTAC, unfunded 01/14; patient of ventilatory support, T-piece tracheostomy on oxygen, LTAC placement per case management 01/16; tracheostomy, patient on full ventilatory support, wean off vent support as tolerated, pending LTAC placement, social financial issues 01/17; awaiting LTAC placement, insurance and financial issues 01/18; patient tracheostomy remains on ventilatory support 01/19; wean off ventilator as tolerated 01/20; remains on ventilatory support, patient complains of intermittent chest pain, cardiology recommend left heart catheterization tomorrow 01/22/2020. Patient for left heart catheterization per cardiology. Patient remains on AC mode ventilation rate 12, tidal volume 450, FiO2 30% and PEEP of 6. Continue tracheostomy care, airway management and secretion control. 01/23/2020. Cardiac catheterization completed yesterday revealed widely patent previous LAD stent with mild nonobstructive atherosclerosis of the right mid coronary artery and rest of the coronary system was without significant atherosclerosis. The left ventricle ejection fraction was mildly impaired at 40 to 45%. There was some hypokinesis of the basal inferior wall suggestive of previous or recent infarct. Continue GDMT for coronary artery disease including beta blockers, topical nitrates, statin and Plavix. Continue Eliquis for paroxysmal atrial fibrillation and PE. Continue diuresis with Lasix and follow electrolytes closely. Continue Robinul and scopolamine for secretion control and daily SBT per pulmonary. Also, continue bronchodilators and routine trach care/airway management. T-piece trials per pulmonary as tolerated. 01/24/2020. Recent cardiac catheterization has documented widely patent left anterior descending artery stent with minimal nonobstructive diffuse coronary artery disease in the rest of the coronary arteries. Evidence of ischemic cardiomyopathy with inferior wall hypokinesis. Continue with guideline directed medical therapy. Continue Robinul and scopolamine for secretion control and daily SBT per pulmonary. Continue bronchodilators and routine trach care/airway management. T-piece trials per pulmonary as tolerated. 01/25/2020. Continue with guideline directed medical therapy for systolic heart failure. Cardiac catheterization revealed evidence of ischemic cardiomyopathy with inferior wall hypokinesis (EF 40-45%). Patient currently on T-piece with oxygen 10 L/min FiO2 40%. Continue Robinul and scopolamine for secretion control. Continue bronchodilators and routine trach care/airway management. 02/03: Mental status more improved, agree with Reglan will change to IV scheduled for two days, no new vomiting. Pseudomonas A in Sputum. 02/04: Clinical improving, amiodarone discontinued due to LFTs, continue Metoprolol.d/w GI, started on Golytely to clear impaction. Started on dialy Miralax. 02/05: Continue supportive care. Noted bowel movement, continue bowel regimen 02/06: Cardiology input noted beta-hebert increased for better suppression of atrial fibrillation. Continue to monitor, no other evidence of nausea vomiting noted. Discussed with respiratory therapist will be continued on weaning protocol with pressure support today. 02/07: Patient successfully weaned off the ventilator, No new complaints, continue monitoring, BM noted, Discussed with pulmonary, 02/08; tracheostomy on T-piece, patient is more alert and awake today 02/09; clinically no change, tracheostomy on vent 02/10; tracheostomy on vent, full CODE STATUS, poor prognosis, 02/11; clinically no change, remains on ventilatory support, full CODE STATUS, discussed with spouse Ms. Paulette Araiza extensively today 02/12. Patient resting comfortably no change on vent with tracheostomy. Still unable to wean. Some increased crackles today. 02/13: Still unable to wean from the vent. Overall prognosis remains extremely poor. 02/14; remains critically ill, tracheostomy on vent, unable to wean, poor prognosis, full CODE STATUS 02/15; patient is more alert and awake today, chronic tracheostomy on T-piece, continue current management DC planning per case management. Disposition very difficult due to lack of resources and insurance 02/17/2020. Patient remains on mechanical ventilation and tolerating PSV trials. Patient currently with PSV 10/6 at FiO2 of 30%. 02/18/2020. Patient currently on PSV 10/6 with FiO2 of 40%. 40% T-piece trial was attempted but patient unable to tolerate due to saturations dropping into the 80s and heart rate in the 140s. Therefore, patient placed back on PSV. Continue anticoagulation with Eliquis. Continue secretion control with Robinul and scopolamine. Continue rate control with metoprolol and digoxin. 02/19/2020. Patient currently on PSV 10/6 with FiO2 of 30%. T-piece trial attempted yesterday but patient did not tolerate. Continue T-piece trials as tolerated. Continue anticoagulation with Eliquis. Continue secretion control with Robinul and scopolamine. Continue rate control with metoprolol and digoxin. Continue to follow with case management with regards to discharge p lizette. 02/20/2020. Patient continues to tolerate PSV 10/6. Continue rate control with metoprolol and digoxin. Amiodarone discontinued due to elevated liver transaminases. Eliquis for anticoagulation acute PE/DVT. 02/21/2020. Patient continues to tolerate PSV 10/6 at FiO2 of 30%. Continue r ate control with metoprolol and digoxin. Amiodarone discontinued due to elevated liver transaminases. Eliquis for anticoagulation acute PE/DVT. 02/22/2020. Patient continues to tolerate PSV 10/6 at FiO2 of 30%. Continue rate control with metoprolol and digoxin. Amiodarone discontinued due to e levated liver transaminases. Eliquis for anticoagulation acute PE/DVT. 02/22. Awake and alert on vent. Vitals stable. 02/23. Awake and alert on vent. Requests for ice. Vitals stable 02/24. Trach to vent. Continue rate control with metoprolol and digoxin. Amiodarone discontinued due to elevated liver transaminases. Eliquis for anticoagulation of acute PE/DVT. Transferred to [facility] 02/25. Seen in [facility]. Requests for ice. RN to provide a cube of ice. Vitals stable. 02/26. No change in medical condition. Slightly tachy this AM. Will monitor The high probability of a clinically significant, sudden or life threatening deterioration of the [Respiratory, cardiovascular & neurological] system(s) required my full and direct attention, intervention and personal management. The aggregate critical care time was [32] minutes without overlap. Time includes spent on [x] Data Review and interpretation [x] Patient assessment and monitoring of vital signs [x] Documentation [x] Medication orders and management History Interval history: Patient seen and examined at bedside this morning. He is asking for ice. As per RN patient had vomited yesterday Hospitalist Physical - Physical exam Narrative exam: VITAL SIGNS: Reviewed. GENERAL: Awake on vent HEAD: No signs of head trauma. EYES: Pupils are equal. Extraocular motions intact. EARS: Hearing grossly intact. MOUTH: Oropharynx is normal. NECK: No adenopathy, no JVD. Trach in place CHEST: Chest with diminished breath sounds bilaterally. No wheezes, rales, or rhonchi. CARDIAC: Regular rate and rhythm. S1 and S2, without murmurs, gallops, or rubs. VASCULAR: +Edema. Peripheral pulses normal and equal in all extremities. ABDOMEN: Soft, non tender and non distended. No rebound or guarding, and no masses palpated. Bowel Sounds normal. MUSCULOSKELETAL: Good range of motion of all major joints. NEUROLOGIC EXAM: Alert and oriented x3. No focal neurologic deficits PSYCHIATRIC: Stable mood SKIN: No obvious lesions - Constitutional Vitals: Temp Pulse Resp BP Pulse Ox 97.5 F L 129 H 22 126/99 100 02/27/20 12:00 02/27/20 11:45 02/27/20 12:10 02/27/20 11:45 02/27/20 11:45 HEART Score - HEART Score Troponin: Troponin T < 0.010 ng/mL (0.00-0.029) 01/19/20 01:35 Results - Labs CBC & Chem 7: 02/22/20 08:06 02/22/20 08:06 Labs: Laboratory Last Values WBC 9.2 K/mm3 (4.5-11.0) 02/22/20 08:06 RBC 4.42 M/mm3 (3.65-5.03) 02/22/20 08:06 Hgb 10.8 gm/dl (11.8-15.2) L 02/22/20 08:06 Hct 35.2 % (35.5-45.6) L 02/22/20 08:06 MCV 80 fl (84-94) L 02/22/20 08:06 MCH 25 pg (28-32) L 02/22/20 08:06 MCHC 31 % (32-34) L 02/22/20 08:06 RDW 21.8 % (13.2-15.2) H 02/22/20 08:06 Plt Count 216 K/mm3 (140-440) 02/22/20 08:06 Lymph % (Auto) 19.0 % (13.4-35.0) 02/22/20 08:06 [place] % (Auto) 6.5 % (0.0-7.3) 02/22/20 08:06 Eos % (Auto) 2.1 % (0.0-4.3) 02/22/20 08:06 Baso % (Auto) 0.9 % (0.0-1.8) 02/22/20 08:06 Lymph # (Auto) 1.8 K/mm3 (1.2-5.4) 02/22/20 08:06 [place] # (Auto) 0.6 K/mm3 (0.0-0.8) 02/22/20 08:06 Eos # (Auto) 0.2 K/mm3 (0.0-0.4) 02/22/20 08:06 Baso # (Auto) 0.1 K/mm3 (0.0-0.1) 02/22/20 08:06 Add Manual Diff Complete 02/15/20 06:59 Total Counted 100 02/15/20 06:59 Seg Neutrophils % 71.5 % (40.0-70.0) H 02/22/20 08:06 Seg Neuts % (Manual) 58.0 % (40.0-70.0) 02/15/20 06:59 Band Neutrophils % 0 % 02/15/20 06:59 Lymphocytes % (Manual) 34.0 % (13.4-35.0) 02/15/20 06:59 Reactive Lymphs % (Man) 1.0 % 02/15/20 06:59 Monocytes % (Manual) 4.0 % (0.0-7.3) 02/15/20 06:59 Eosinophils % (Manual) 0 % (0.0-4.3) 02/15/20 06:59 Basophils % (Manual) 2.0 % (0.0-1.8) H 02/15/20 06:59 Metamyelocytes % 1.0 % 02/15/20 06:59 Myelocytes % 0 % 02/15/20 06:59 Promyelocytes % 0 % 02/15/20 06:59 Blast Cells % 0 % 02/15/20 06:59 Nucleated RBC % 1.0 % (0.0-0.9) H 02/15/20 06:59 Seg Neutrophils # 6.6 K/mm3 (1.8-7.7) 02/22/20 08:06 Seg Neutrophils # Man 5.9 K/mm3 (1.8-7.7) 02/15/20 06:59 Band Neutrophils # 0.0 K/mm3 02/15/20 06:59 Lymphocytes # (Manual) 3.5 K/mm3 (1.2-5.4) 02/15/20 06:59 Abs React Lymphs (Man) 0.1 K/mm3 02/15/20 06:59 Monocytes # (Manual) 0.4 K/mm3 (0.0-0.8) 02/15/20 06:59 Eosinophils # (Manual) 0.0 K/mm3 (0.0-0.4) 02/15/20 06:59 Basophils # (Manual) 0.2 K/mm3 (0.0-0.1) H 02/15/20 06:59 Metamyelocytes # 0.1 K/mm3 02/15/20 06:59 Myelocytes # 0.0 K/mm3 02/15/20 06:59 Promyelocytes # 0.0 K/mm3 02/15/20 06:59 Blast Cells # 0.0 K/mm3 02/15/20 06:59 WBC Morphology Not Reportable 02/15/20 06:59 Hypersegmented Neuts Not Reportable 02/15/20 06:59 Hyposegmented Neuts Not Reportable 02/15/20 06:59 Hypogranular Neuts Not Reportable 02/15/20 06:59 Smudge Cells Not Reportable 02/15/20 06:59 Toxic Granulation Not Reportable 02/15/20 06:59 Toxic Vacuolation Not Reportable 02/15/20 06:59 Dohle Bodies Not Reportable 02/15/20 06:59 Pelger-Huet Anomaly Not Reportable 02/15/20 06:59 Hector Rods Not Reportable 02/15/20 06:59 Platelet Estimate Consistent w auto 02/15/20 06:59 Clumped Platelets Not Reportable 02/15/20 06:59 Plt Clumps, EDTA Not Reportable 02/15/20 06:59 Large Platelets Not Reportable 02/15/20 06:59 Giant Platelets Not Reportable 02/15/20 06:59 Platelet Satelliting Not Reportable 02/15/20 06:59 Plt Morphology Comment Giant platelets 02/15/20 06:59 RBC Morphology Not Reportable 02/15/20 06:59 Dimorphic RBCs Not Reportable 02/15/20 06:59 Polychromasia Not Reportable 02/15/20 06:59 Hypochromasia 1+ 02/15/20 06:59 Poikilocytosis Few 02/15/20 06:59 Anisocytosis 1+ 02/15/20 06:59 Microcytosis Not Reportable 02/15/20 06:59 Macrocytosis Not Reportable 02/15/20 06:59 Spherocytes Not Reportable 02/15/20 06:59 Pappenheimer Bodies Not Reportable 02/15/20 06:59 Sickle Cells Not Reportable 02/15/20 06:59 Target Cells 1+ 02/15/20 06:59 Tear Drop Cells Few 02/15/20 06:59 Ovalocytes Not Reportable 02/15/20 06:59 Helmet Cells Not Reportable 02/15/20 06:59 [place] Bodies Not Reportable 02/15/20 06:59 [place] Rings Not Reportable 02/15/20 06:59 [place] Cells Not Reportable 02/15/20 06:59 Bite Cells Not Reportable 02/15/20 06:59 Crenated Cell Not Reportable 02/15/20 06:59 Elliptocytes Few 02/15/20 06:59 Acanthocytes (Spur) Not Reportable 02/15/20 06:59 Rouleaux Not Reportable 02/15/20 06:59 Hemoglobin C Crystals Not Reportable 02/15/20 06:59 Schistocytes Not Reportable 02/15/20 06:59 Malaria parasites Not Reportable 02/15/20 06:59 Clifford Bodies Not Reportable 02/15/20 06:59 Hem Pathologist Commnt No 02/15/20 06:59 PT 27.0 Sec. (12.2-14.9) H 02/07/20 15:03 INR 2.46 (0.87-1.13) H 02/07/20 15:03 APTT 31.5 Sec. (24.2-36.6) 01/22/20 09:58 Heparin Anti-Xa Level 1.34 U.I./ml (0.3-0.7) H 01/22/20 04:45 ABG pH 7.461 pH Units (7.350-7.450) H 02/20/20 06:45 POC ABG pCO2 34.8 mmHg (32.0-48.0) 02/11/20 14:11 ABG pCO2 47.8 mm Hg 02/20/20 06:45 POC ABG pO2 77.7 mmHg (83-108) L 02/11/20 14:11 ABG pO2 88.7 mm Hg (80.0-90.0) 02/20/20 06:45 POC ABG HCO3 26.7 02/11/20 14:11 ABG HCO3 33.3 mmol/L (20.0-26.0) H 02/20/20 06:45 ABG O2 Saturation 97.2 % (95.0-99.0) 02/20/20 06:45 ABG O2 Content 13.3 (0.0-44) 02/20/20 06:45 POC ABG Base Excess 3.6 02/11/20 14:11 ABG Base Excess 8.4 mmol/L (-2.0-3.0) H 02/20/20 06:45 ABG Hemoglobin 10.0 gm/dl (14.0-18.0) L 02/20/20 06:45 ABG Oxyhemoglobin 84 (94-98) L 12/22/19 03:22 ABG Carboxyhemoglobin 2.9 % (0.0-5.0) 02/20/20 06:45 ABG Methemoglobin 0.4 % (0.0-1.5) 02/20/20 06:45 ABG Sodium 144.7 mmol/L (136.0-145.0) 02/11/20 14:11 ABG Potassium 3.5 mmol/L (3.40-4.50) 02/11/20 14:11 ABG Chloride 108.0 mmol/L (98-107) H 02/11/20 14:11 ABG Glucose 151 mg/dL (65-95) H 02/11/20 14:11 Oxyhemoglobin 94.1 % (95.0-99.0) L 02/20/20 06:45 Carboxyhemoglobin 0.7 (0.5-1.5) 12/22/19 03:22 FiO2 30 % 02/20/20 06:45 Sodium 146 mmol/L (137-145) H 02/22/20 08:06 Potassium 3.7 mmol/L (3.6-5.0) 02/22/20 08:06 Chloride 106.1 mmol/L (98-107) 02/22/20 08:06 Carbon Dioxide 34 mmol/L (22-30) H 02/22/20 08:06 Anion Gap 10 mmol/L 02/22/20 08:06 BUN 21 mg/dL (9-20) H 02/22/20 08:06 Creatinine 0.4 mg/dL (0.8-1.3) L 02/22/20 08:06 Estimated GFR > 60 ml/min 02/22/20 08:06 BUN/Creatinine Ratio 53 % 02/22/20 08:06 Glucose 149 mg/dL (75-100) H 02/22/20 08:06 POC Glucose 130 mg/dL (70-105) H 02/27/20 12:13 Lactic Acid 1.60 mmol/L (0.7-2.0) 02/03/20 12:49 Calcium 9.5 mg/dL (8.4-10.2) 02/22/20 08:06 Ferritin 84.4 ng/mL (30.0-300.0) 11/24/19 04:53 Phosphorus 4.10 mg/dL (2.5-4.5) 01/31/20 19:24 Magnesium 2.40 mg/dL (1.7-2.3) H 02/10/20 07:40 Total Bilirubin 1.30 mg/dL (0.1-1.2) H 02/08/20 19:00 Direct Bilirubin 0.9 mg/dL (0-0.2) H 02/08/20 19:00 Indirect Bilirubin 0.4 mg/dL 02/08/20 19:00 Total Creatine Kinase 141 units/L (55-170) 11/24/19 02:53 CK-MB (CK-2) 4.3 ng/mL (0.0-4.0) H 11/24/19 02:53 AST 309 units/L (5-40) H 02/08/20 19:00 ALT 650 units/L (7-56) H 02/08/20 19:00 CK-MB (CK-2) Rel Index 3.0 (0-4) 11/24/19 02:53 Alkaline Phosphatase 109 units/L (35-129) 02/08/20 19:00 C-Reactive Protein 8.50 mg/dL (0.00-1.30) H 12/01/19 12:16 Ammonia 35.0 umol/L (25-60) 02/03/20 12:49 Lactate Dehydrogenase 228 units/L (91-180) H 12/19/19 04:45 Troponin T < 0.010 ng/mL (0.00-0.029) 01/19/20 01:35 NT-Pro-B Natriuret Pep 3866 pg/mL (0-900) H 01/01/20 10:40 Total Protein 6.2 g/dL (6.3-8.2) L 02/08/20 19:00 Albumin 2.7 g/dL (3.9-5) L 02/08/20 19:00 Albumin/Globulin Ratio 0.8 % 02/08/20 19:00 Procalcitonin 0.44 ng/mL (<0.15) 02/03/20 12:49 Arterial Blood Glucose 151 mg/dL (65-95) H 02/11/20 14:11 Arterial Blood Ionized Calcium 4.7 mg/dL (4.6-5.3) 02/11/20 14:11 Urine Color Cecy (Yellow) 02/26/20 07:50 Urine Turbidity Clear (Clear) 02/26/20 07:50 Urine pH 5.0 (5.0-7.0) 02/26/20 07:50 Ur Specific [place] 1.025 (1.003-1.030) 02/26/20 07:50 Urine Protein 30 mg/dl mg/dL (Negative) 02/26/20 07:50 Urine Glucose (UA) Neg mg/dL (Negative) 02/26/20 07:50 Urine Ketones Neg mg/dL (Negative) 02/26/20 07:50 Urine Blood Sm (Negative) 02/26/20 07:50 Urine Nitrite Neg (Negative) 02/26/20 07:50 Urine Bilirubin Neg (Negative) 02/26/20 07:50 Urine Urobilinogen 4.0 mg/dL (<2.0) 02/26/20 07:50 Ur Leukocyte Esterase Lg (Negative) 02/26/20 07:50 Urine WBC (Auto) > 182.0 /HPF (0.0-6.0) H 02/26/20 07:50 Urine RBC (Auto) 84.0 /HPF (0.0-6.0) 02/26/20 07:50 U Epithel Cells (Auto) 2.0 /HPF (0-13.0) 12/31/19 18:04 Urine Bacteria (Auto) 4+ /HPF (Negative) 02/26/20 07:50 Urine WBC Clumps 2+ /HPF 02/26/20 07:50 Urine Mucus 1+ /HPF 02/26/20 07:50 Urine Creatinine 57.4 mg/dL (0.1-20.0) H 01/31/20 Unknown Urine Sodium 59 mmol/L 01/31/20 Unknown Vancomycin Trough 14.2 ug/mL (5.0-20.0) 12/13/19 15:01 Coronavirus (PCR) Negative (Negative) 12/29/19 10:07 Hepatitis A IgM Ab Non-reactive (NonReactive) 02/05/20 06:37 Hep Bs Antigen Non-reactive (Negative) 02/05/20 06:37 Hep B Core IgM Ab Non-reactive (NonReactive) 02/05/20 06:37 Hepatitis C Antibody Non-reactive (NonReactive) 02/05/20 06:37 Blood Type O POSITIVE 01/21/20 13:00 Antibody Screen Negative 01/21/20 13:00 - Diagnostic Impressions Diagnostic Impressions: Echocardiogram 11/29/19 07:37 Transthoracic Echocardiogram Indication: CHF BP: 116/72 HR: 33 Conclusions *The study is technically limited due to poor acoustic windows. *Global left ventricular systolic function is normal. *The estimated ejection fraction is 50-55%. *Mild concentric left ventricular hypertrophy is observed. *There is trace of mitral regurgitation. *There is mild tricuspid regurgitation. Findings Procedure Info: The study quality is poor. The study is technically limited due to poor acoustic windows. The study is technically limited due to patient body habitus. Left Ventricle: The left ventricular chamber size is normal. Mild concentric left ventricular hypertrophy is observed. Global left ventricular systolic function is normal. The estimated ejection fraction is 50-55%. Left Atrium: The left atrial chamber size is normal. Right Ventricle: The right ventricular cavity size is normal. Right Atrium: The right atrial cavity size is normal. Aortic Valve: The aortic valve leaflets are moderately thickened. There is trace of aortic regurgitation. There is no evidence of aortic stenosis. Mitral Valve: The mitral valve leaflets are mildly thickened. There is trace of mitral regurgitation. There is no evidence of mitral stenosis. Tricuspid Valve: There is mild tricuspid regurgitation. No pulmonary hypertension is noted. Pulmonic Valve: There is trace pulmonic regurgitation. Pericardium: There is no pericardial effusion. Aorta: There is no dilatation of the aortic root. Venous: The inferior vena cava appears normal in size. Contrast: Definity was used to optimize study. Intravenous contrast was used to enhance endocardial border definition. Measurements Chambers 2D Name Value Normal Range Ao root diameter (2D) 3.4 cm (2 - 3.7) Aortic Valve Name Value Normal Range AV Vmax 0.98 m/sec - AV VTI 16.76 cm - AV peak gradient 3.83 mmHg - AV mean gradient 2.57 mmHg - LVOT diameter 3.11 cm - LVOT Vmax 0.68 m/sec - LVOT VTI 11.52 cm - LVOT peak gradient 1.84 mmHg - LVOT mean gradient 1.27 mmHg - SV LVOT 87.31 ml - MALOU (continuity Vmax) 5.24 cm2 - MALOU (continuity VTI) 5.21 cm2 - Tricuspid Valve Name Value Normal Range IVC diameter 2.24 cm (1.2 - 2.3) Hoffman/IV: Voiding Method Indwelling Catheter IV Catheter Type [Left INT / Saline Lock Antecubital] IV Catheter Type [Right INT / Saline Lock Forearm] IV Catheter Type [Right Hand] Peripheral IV IV Catheter Type [Right Upper INT / Saline Lock arm] IV Catheter Type [Left Upper Mid-line arm] IV Catheter Type [Left Forearm Peripheral IV ] IV Catheter Type [Left Hand] Peripheral IV IV Catheter Type [Left Wrist] INT / Saline Lock IV Catheter Type [Right Peripheral IV Antecubital] Active Medications - Current Medications Current Medications: Generic Name Dose Route Start Last Admin Trade Name Freq PRN Reason Stop Dose Admin Acetaminophen 650 mg 12/31/19 11:43 02/19/20 17:01 Tylenol FEEDTUBE 650 mg Q6H PRN Administration Pain, Mild (1-3) Lipase/Protease/Amylase 1 each 01/09/20 12:01 Nadir Betancourt 10,500 Unit FEEDTUBE PRN PRN For Clogged Feeding Tube Apixaban 5 mg 01/22/20 22:00 02/27/20 09:02 Eliquis PO 5 mg Q12HR CAR Administration Protocol Atorvastatin Calcium 40 mg 01/20/20 22:00 02/26/20 21:38 Lipitor PO 40 mg QHS CAR Administration Clopidogrel Bisulfate 75 mg 01/21/20 06:00 02/27/20 09:03 Plavix PO 75 mg QDAY CAR Administration Dextrose 50 ml 01/31/20 18:51 02/05/20 00:56 D50w (25gm) Syringe IV 50 ml Q30MIN PRN Administration Hypoglycemia Protocol Digoxin 0.125 mg 02/25/20 17:00 02/26/20 16:46 Lanoxin PO 0.125 mg DAILY@1700 CAR Administration Docusate Sodium 100 mg 02/22/20 10:00 02/27/20 09:02 Colace FEEDTUBE 100 mg BID CAR Administration Glycopyrrolate 2 mg 02/24/20 21:00 02/27/20 08:18 Glycopyrrolate PO 2 mg TID CAR Administration Haloperidol Lactate 5 mg 02/10/20 14:20 02/26/20 15:00 Haldol IV 5 mg Q6H PRN Administration Agitation Hydrophilic Ointment 1 applic 01/17/20 15:26 02/24/20 23:20 Vaseline Lip Therapy TP 1 applic DIRECT PRN Administration Dry Lips Insulin Human Regular 0 unit 02/01/20 18:00 02/27/20 12:38 Humulin R SUB-Q Not Given Q6H [facility] Protocol Lansoprazole 30 mg 02/05/20 16:00 02/27/20 09:03 Prevacid Solutab FEEDTUBE 30 mg QDAY CAR Administration Metoprolol Tartrate 5 mg 01/11/20 08:00 02/16/20 22:00 Metoprolol IV 5 mg Q6H PRN Administration SEE INSTRUCTIONS Midodrine 15 mg 02/04/20 16:00 02/27/20 12:10 Proamatine PO 15 mg TID@0800,1200,1600 CAR Administration Morphine Sulfate 2 mg 01/06/20 15:41 02/27/20 12:10 Morphine IV 2 mg Q4H PRN Administration Pain, Moderate (4-6) Multi-Ingred Cream/Lotion/Oil/Oint 1 applic 02/01/20 15:52 Artificial Tears Ophth Oint OU Q4HR PRN Dry Eye(s) Nitroglycerin 0.4 mg 01/19/20 21:09 01/20/20 03:03 Nitrostat SL 0.4 mg .Q5MIN PRN Administration Chest Pain Ondansetron HCl 4 mg 01/05/20 14:37 02/26/20 03:15 Zofran IV 4 mg Q8H PRN Administration Nausea And Vomiting Polyethylene Glycol 17 gm 12/04/19 22:00 02/26/20 21:38 Miralax 3350 PO 17 gm QHS CAR Administration Quetiapine Fumarate 300 mg 01/13/20 22:00 02/27/20 09:03 Seroquel PO 300 mg BID CAR Administration Scopolamine 1 each 01/07/20 20:00 01/07/20 21:08 Transderm-Scop TD 1 each Q72HR CAR Administration Simple Syrup 15 ml 01/09/20 12:01 Simple Syrup FEEDTUBE PRN PRN Hypoglycemia Simple Syrup 30 ml 01/09/20 12:01 Simple Syrup FEEDTUBE PRN PRN Hypoglycemia Sodium Bicarbonate 325 mg 01/09/20 12:01 Sodium Bicarbonate FEEDTUBE PRN PRN For Clogged Feeding Tube Sodium Chloride 10 ml 11/24/19 10:00 02/27/20 09:04 Sodium Chloride Flush Syringe 10 Ml IV 10 ml BID CAR Administration Tamsulosin HCl 0.8 mg 12/20/19 22:00 02/26/20 21:37 Flomax PO 0.8 mg QHS CAR Administration Nutrition/Malnutrition Assess - Dietary Evaluation Nutrition/Malnutrition Findings: Nutrition Notes Start: 11/24/19 12:22 Freq: Status: Active Protocol: Document 02/26/20 11:54 EN (Rec: 02/26/20 12:02 EN [id number]) Co-Sign 02/26/20 11:54 MK Nutrition Notes Initial or Follow up Reassessment Current Diagnosis Coronary Artery Disease,Heart Failure,Respiratory Failure, Stroke,Hyperlipidemia Other Pertinent Diagnosis Partial SBO, pneu Current Diet Vital AF 1.2 at 75ml/hr Labs/Tests Reviewed Pertinent Medications Zofran Height 6 ft 2 in Weight 117.5 kg [place] Body Weight (kg) 86.36 BMI 33.3 Weight Status Obese Subjective/Other Information F/u for stable TF. Per RN, pt vomited last night and TF was restarted this morning at 15 ml/hr. Pt tolerating TF. RN reports no further episodes of emesis. 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 Yes Is Patient Ambulatory and/or Out of Bed No REE-([facility]-confined to bed) 2452.344 Kcal/Kg value to use for calculation 16 Approximate Energy Requirements Using 1880 kcal/Kg Calculation Used for Recommendations Kcal/kg Additional Notes Protein needs are 117-147g (1. 2-1.5 g/kg AdBW of 97.78kg) Fluid needs are 1.5L [ End ] Nutrition Intervention Change Diet Order: Continue TF via PEG Nutrition Support: Vital AF 1.2 at 75ml/hr. increase Flush 250ml q4h for hypernatremia Flush 100ml q4h once hypernatremia is resolved Kcal 2,160 Protein (gm) 135 Fluid (mL) 1,460 Goal #1 Meet at least 75% of pt's energy and protein needs Goal #2 Weight maintenance Anticipated Discharge Needs: unable to determine at this time Follow-Up By: 02/29/20 Additional Comments F/u for TF rate/tolerance
[2020-02-27] MEDS: DIGOXIN 0.125 MG TAB PO SCH (16:54)
[2020-02-27] MEDS: TAMSULOSIN 0.4 MG CAP PO SCH (21:00)
[2020-02-27] MEDS: POLYETHYLENE GLYCOL 3350 17 GM POWDER PO SCH (21:01)
[2020-02-28] MEDS: INSULIN REGULAR, HUMAN 100 UNIT/ML 3ML VIAL SUB-Q SCH ×5 (00:30→23:23)
[2020-02-28] MEDS: GLYCOPYRROLATE 2 MG TAB PO SCH ×3 (08:06→20:35)
[2020-02-28] MEDS: MIDODRINE 5 MG TAB PO SCH ×3 (08:06→15:25)
[2020-02-28] MEDS: LANSOPRAZOLE 30 MG SOLUTAB FEEDTUBE SCH (09:42)
[2020-02-28] MEDS: QUEtiapine 100 MG TAB PO SCH ×3 (09:42→21:03)
[2020-02-28] MEDS: DOCUSATE SODIUM 100 MG/10 ML ORAL LIQD FEEDTUBE SCH ×3 (09:42→21:01)
[2020-02-28] MEDS: CLOPIDOGREL 75 MG TAB PO SCH (09:42)
[2020-02-28] MEDS: APIXABAN 5 MG TAB PO SCH ×3 (09:42→21:02)
[2020-02-28] MEDS: MORPHINE 2 MG/1 ML INJ IV PRN ×3 (09:52→20:38)
--- NOTE | 2020-02-28 11:12 | Progress Note ---
Assessment and Plan - Patient Problems (1) Acute respiratory failure Current Visit: Yes Status: Acute (2) Bilateral pneumonia Current Visit: Yes Status: Acute (3) COPD exacerbation Current Visit: No Status: Acute (4) Hypertension Current Visit: No Status: Acute Qualifiers: Hypertension type: essential hypertension Qualified Code(s): I10 - Essential (primary) hypertension (5) Cardiomyopathy Current Visit: Yes Status: Acute (6) Paroxysmal atrial fibrillation Current Visit: Yes Status: Acute Subjective Date of service: 02/28/20 Principal diagnosis: Ac hypoxemic resp failure; Pneumonia; PUI COVID-19; CHF; COPD; HTN Interval history: I SAW THIS PT & AGREE WITH THE Dx & Tx PLAN Objective Vital Signs Temp Pulse Pulse Pulse Resp Resp BP 02/28/20 10:00 118 H 23 126/78 02/28/20 09:58 02/28/20 09:00 107 H 20 126/78 02/28/20 08:20 123 H 29 H 126/78 02/28/20 08:00 97.5 F L 106 H 102 H 18 21 109/79 02/28/20 07:00 108 H 17 128/92 02/28/20 06:00 117 H 16 128/92 02/28/20 05:35 119 H 125/80 02/28/20 05:00 117 H 15 125/80 02/28/20 04:38 102 H 02/28/20 04:00 98.2 F 126 H 21 16 129/85 02/28/20 03:00 103 H 20 115/95 02/28/20 02:00 132 H 19 95/68 02/28/20 01:00 101 H 22 111/82 02/28/20 00:03 116 H 02/28/20 00:00 98.1 F 127 H 21 108/73 02/27/20 23:15 23 02/27/20 23:04 105 H 22 109/75 02/27/20 23:00 114 H 30 H 120/79 02/27/20 22:30 101 H 20 120/79 02/27/20 22:00 92 H 23 117/85 02/27/20 21:30 132 H 24 117/85 02/27/20 21:00 120 H 21 117/85 02/27/20 20:30 91 H 22 109/75 02/27/20 20:21 109 H 02/27/20 20:00 97.8 F 100 H 24 24 109/75 02/27/20 19:30 134 H 20 113/77 02/27/20 19:23 97 H 113/77 02/27/20 19:00 96 H 11 L 113/77 02/27/20 18:30 98 H 13 119/79 02/27/20 18:00 101 H 13 119/79 02/27/20 17:30 111 H 11 L 114/85 02/27/20 17:00 124 H 22 114/85 02/27/20 16:54 112 H 107/70 02/27/20 16:30 126 H 19 107/70 02/27/20 16:00 98.0 F 113 H 108 H 20 121/94 02/27/20 15:31 96 H 21 121/94 02/27/20 15:30 115 H 22 121/94 02/27/20 15:00 100 H 15 121/94 02/27/20 14:30 126 H 21 119/96 02/27/20 14:00 120 H 22 119/96 02/27/20 13:30 108 H 15 120/87 02/27/20 13:00 122 H 22 133/100 02/27/20 12:30 113 H 18 133/100 02/27/20 12:10 22 02/27/20 12:00 97.5 F L 134 H 110 H 20 133/100 02/27/20 11:45 129 H 29 H 126/99 02/27/20 11:30 126 H 22 144/101 Pulse Ox Pulse Ox 02/28/20 10:00 97 02/28/20 09:58 97 02/28/20 09:00 98 02/28/20 08:20 95 02/28/20 08:00 99 98 02/28/20 07:00 96 02/28/20 06:00 98 02/28/20 05:35 97 02/28/20 05:00 99 02/28/20 04:38 02/28/20 04:00 99 02/28/20 03:00 99 02/28/20 02:00 98 02/28/20 01:00 99 02/28/20 00:03 02/28/20 00:00 100 02/27/20 23:15 02/27/20 23:04 99 02/27/20 23:00 99 02/27/20 22:30 98 02/27/20 22:00 98 02/27/20 21:30 100 02/27/20 21:00 100 02/27/20 20:30 98 02/27/20 20:21 02/27/20 20:00 99 02/27/20 19:30 98 02/27/20 19:23 97 02/27/20 19:00 99 02/27/20 18:30 99 02/27/20 18:00 99 02/27/20 17:30 99 02/27/20 17:00 98 02/27/20 16:54 02/27/20 16:30 99 02/27/20 16:00 98 02/27/20 15:31 100 100 02/27/20 15:30 99 02/27/20 15:00 99 02/27/20 14:30 100 02/27/20 14:00 99 02/27/20 13:30 98 02/27/20 13:00 97 02/27/20 12:30 96 02/27/20 12:10 02/27/20 12:00 96 02/27/20 11:45 100 02/27/20 11:30 100 - Physical Examination General: Other (s/p trach) HEENT: Positive: PERRL Neck: Positive: neck supple Cardiac: Positive: Irregularly Regular, Tachycardia Lungs: Positive: Rhonchi Neuro: Positive: Grossly Intact, Weakness Abdomen: Positive: Soft Skin: Positive: Clear Extremities: Absent: edema (TR) - Allied health notes Allied health notes reviewed: nursing
--- NOTE | 2020-02-28 12:54 | Progress Note ---
Assessment and Plan Acute hypoxemic respiratory failure Bilateral pneumonia, community acquired. Acute LLL branch P.E. Acute DVT Person under investigation for COVID-19 infection. Acute congestive heart failure exacerbation. History of cerebrovascular accident. Acute chronic obstructive pulmonary disease exacerbation. Hypertension and hypertensive urgency at presentation. History of arthritis. Leukocytosis. Lactic acidosis. Oropharyngeal dysphagia - remains a difficult wean, no new issues today, continue care as below; - continue daily SAT's and SBT assessment as tolerated - continue Robinul & Scopolamine for secretion control - continue to rest on AC qhs - rate control per cardiology team - continue prn haldol for agitation to avoid hypoventilation (stopped Lorazepam) - continue Flomax - antiinfective's per ID rec's - Midodrine for BP support - prn mucomyst nebs re: secretions - continue full anticoagulation with Apixaban - continue seroquel for anxiolysis / delirium - COVID isolation per facility protocol - prn diuresis while following electrolytes / I's & O's - continue to wean oxygen for O2 sat's > 92% - continue bronchodilators with routine trach care and pulmonary hygiene per RT - continue Robinul & Scopolamine for secretion control - VAP bundle addressed (Aspiration precautions, HOB >40) - continue to wean per pulmonary driven protocols - sedation target is RASS 0 to -1 - continue prn analgesia per CPOT score - follow clinically re: fever curves / trend WBC - Avoid delirium (no benzodiazepines if they can be avoided) - Maintain sleep-wake cycle - enteral nutrition at goal rate as tolerated - continue accucheck's with glycemic control per SSI for target blood glucose goal of 140-180 mg/dL while critically ill; Avoid hypoglycemia - for VTE he is onEliquis - continue stress ulcer prophylaxis with Famotidine - continue mobility protocols for pressure ulcer prophylaxis - continue fall precautions - continue wound care management per RN / WCT - Supportive transfusions to keep HgB>7g/dL - CXR's and ABG's prn - Continue to monitor neurologic function - Continue chronic home medications - Continue all supportive care ........ re-evaluate in am & prn CONDITION: CRITICAL PROGNOSIS: GUARDED CODE STATUS: FULL CODE The high probability of a clinically significant, sudden or life threatening deterioration of the [Respiratory, cardiovascular & neurological] system(s) required my full and direct attention, intervention and personal management. The aggregate critical care time was [32] minutes without overlap. Time includes spent on [x] Data Review and interpretation [x] Patient assessment and monitoring of vital signs [x] Documentation [x] Medication orders and management Subjective Date of service: 02/28/20 Principal diagnosis: Ac hypoxemic resp failure; Pneumonia; PUI COVID-19; CHF; COPD; HTN Interval history: Patient is seen today for: Acute hypoxemic respiratory failure; Ad[place]. Pneumonia (CAP); PUI COVID-19 infection; AE-CHF; AE-COPD; H/O CVA; HTN Seen and examined at bedside; 24 hour events reviewed; nursing and respiratory care staff consulted; no adverse overnight events reported to me; resting peacefully in bed; remains a difficult wean; denies acute chest pains or palpitations; No N/V/F/C Objective Vital Signs - 12hr 02/28/20 02/28/20 02/28/20 01:00 02:00 03:00 Temperature Pulse Rate 101 H 132 H 103 H Pulse Rate [ From Monitor] Respiratory 22 19 20 Rate Respiratory Rate [ Generalized] Blood Pressure 111/82 95/68 115/95 O2 Sat by Pulse 99 98 99 Oximetry O2 Sat by Pulse Oximetry [ Assessment] 02/28/20 02/28/20 02/28/20 04:00 04:38 05:00 Temperature 98.2 F Pulse Rate 126 H 102 H 117 H Pulse Rate [ From Monitor] Respiratory 21 15 Rate Respiratory 16 Rate [ Generalized] Blood Pressure 129/85 125/80 O2 Sat by Pulse 99 99 Oximetry O2 Sat by Pulse Oximetry [ Assessment] 02/28/20 02/28/20 02/28/20 05:35 06:00 07:00 Temperature Pulse Rate 119 H 117 H 108 H Pulse Rate [ From Monitor] Respiratory 16 17 Rate Respiratory Rate [ Generalized] Blood Pressure 125/80 128/92 128/92 O2 Sat by Pulse 97 98 96 Oximetry O2 Sat by Pulse Oximetry [ Assessment] 02/28/20 02/28/20 02/28/20 08:00 08:20 09:00 Temperature 97.5 F L Pulse Rate 106 H 123 H 107 H Pulse Rate [ 102 H From Monitor] Respiratory 18 29 H 20 Rate Respiratory 21 Rate [ Generalized] Blood Pressure 109/79 126/78 126/78 O2 Sat by Pulse 99 98 98 Oximetry O2 Sat by Pulse 98 Oximetry [ Assessment] 02/28/20 02/28/20 02/28/20 09:58 10:00 11:34 Temperature Pulse Rate 118 H 97 H Pulse Rate [ From Monitor] Respiratory 23 14 Rate Respiratory Rate [ Generalized] Blood Pressure 126/78 107/78 O2 Sat by Pulse 97 97 100 Oximetry O2 Sat by Pulse Oximetry [ Assessment] Constitutional: no acute distress, alert, other (elelelderly and obese male, normocephalic with mildly increased respiratory effort at rest) Eyes: non-icteric ENT: oropharynx moist, other (+ midline tracheostomy) Neck: supple, no JVD Effort: mildly labored Ascultation: Bilateral: diminished breath sounds, rhonchi (scant) Percussion: Bilateral: not dull Cardiovascular: irregular rhythm Gastrointestinal: normoactive bowel sounds, soft, non-tender, non-distended (protuberant), other (protuberant; PEG in place) Integumentary: normal Extremities: no cyanosis, pulses normal, no ischemia or petechiae, edema (bilateral lower) Neurologic: non-focal exam (grossly; moves extremities), pupils equal and round, other (intermittent agitation) Psychiatric: mood appropriate, affect normal CBC and BMP: 03/15/20 04:05 03/19/20 07:50 ABG, PT/INR, D-dimer: ABG ABG pH 7.461 pH Units (7.350-7.450) H 02/20/20 06:45 POC ABG pCO2 34.8 mmHg (32.0-48.0) 02/11/20 14:11 ABG pCO2 47.8 mm Hg 02/20/20 06:45 POC ABG pO2 77.7 mmHg (83-108) L 02/11/20 14:11 ABG pO2 88.7 mm Hg (80.0-90.0) 02/20/20 06:45 POC ABG HCO3 26.7 02/11/20 14:11 ABG O2 Saturation 97.2 % (95.0-99.0) 02/20/20 06:45 PT/INR, D-dimer PT 27.0 Sec. (12.2-14.9) H 02/07/20 15:03 INR 2.46 (0.87-1.13) H 02/07/20 15:03 Abnormal lab findings: Abnormal Labs 11/24/19 11/24/19 11/24/19 02:53 02:53 03:45 WBC 14.3 H RBC Hgb Hct MCHC RDW 17.2 H MCV MCH Lymph % (Auto) [place] % (Auto) [place] # Eos # Lymph # (Auto) [place] # (Auto) Eos # (Auto) Seg Neutrophils % Seg Neuts % (Manual) Baso # (Auto) Lymphocytes % (Manual) Monocytes % (Manual) Eosinophils % (Manual) Basophils % (Manual) Seg Neutrophils # Seg Neutrophils # Man 8.3 H Lymphocytes # (Manual) Monocytes # (Manual) 0.9 H Eosinophils # (Manual) Nucleated RBC % Basophils # (Manual) PT INR APTT Heparin Anti-Xa Level ABG pH 7.313 L POC ABG pO2 ABG pO2 102.8 H ABG HCO3 ABG O2 Saturation ABG Base Excess -2.9 L POC ABG pCO2 ABG Hemoglobin ABG Oxyhemoglobin ABG Chloride ABG Glucose Oxyhemoglobin 93.9 L Sodium Potassium Chloride Carbon Dioxide BUN Creatinine Glucose 195 H POC Glucose Lactic Acid Calcium Phosphorus Magnesium AST ALT Lactate Dehydrogenase Total Bilirubin Direct Bilirubin CK-MB (CK-2) 4.3 H C-Reactive Protein NT-Pro-B Natriuret Pep 1181 H Total Protein Albumin Arterial Blood Glucose Urine WBC (Auto) Urine Creatinine 11/24/19 11/24/19 11/24/19 04:53 04:53 10:37 WBC RBC Hgb Hct MCHC RDW MCV MCH Lymph % (Auto) [place] % (Auto) [place] # Eos # Lymph # (Auto) [place] # (Auto) Eos # (Auto) Seg Neutrophils % Seg Neuts % (Manual) Baso # (Auto) Lymphocytes % (Manual) Monocytes % (Manual) Eosinophils % (Manual) Basophils % (Manual) Seg Neutrophils # Seg Neutrophils # Man Lymphocytes # (Manual) Monocytes # (Manual) Eosinophils # (Manual) Nucleated RBC % Basophils # (Manual) PT INR APTT Heparin Anti-Xa Level ABG pH POC ABG pO2 ABG pO2 ABG HCO3 ABG O2 Saturation ABG Base Excess POC ABG pCO2 ABG Hemoglobin ABG Oxyhemoglobin ABG Chloride ABG Glucose Oxyhemoglobin Sodium Potassium Chloride Carbon Dioxide BUN Creatinine Glucose 162 H POC Glucose Lactic Acid 2.40 H* 2.50 H* Calcium Phosphorus Magnesium AST ALT Lactate Dehydrogenase 240 H Total Bilirubin Direct Bilirubin CK-MB (CK-2) C-Reactive Protein NT-Pro-B Natriuret Pep Total Protein Albumin Arterial Blood Glucose Urine WBC (Auto) Urine Creatinine 11/24/19 11/24/19 11/24/19 12:21 14:50 19:54 WBC RBC Hgb Hct MCHC RDW MCV MCH Lymph % (Auto) [place] % (Auto) [place] # Eos # Lymph # (Auto) [place] # (Auto) Eos # (Auto) Seg Neutrophils % Seg Neuts % (Manual) Baso # (Auto) Lymphocytes % (Manual) Monocytes % (Manual) Eosinophils % (Manual) Basophils % (Manual) Seg Neutrophils # Seg Neutrophils # Man Lymphocytes # (Manual) Monocytes # (Manual) Eosinophils # (Manual) Nucleated RBC % Basophils # (Manual) PT INR APTT Heparin Anti-Xa Level ABG pH POC ABG pO2 ABG pO2 ABG HCO3 ABG O2 Saturation ABG Base Excess POC ABG pCO2 ABG Hemoglobin ABG Oxyhemoglobin ABG Chloride ABG Glucose Oxyhemoglobin Sodium Potassium Chloride Carbon Dioxide BUN Creatinine Glucose POC Glucose 145 H 143 H 124 H Lactic Acid Calcium Phosphorus Magnesium AST ALT Lactate Dehydrogenase Total Bilirubin Direct Bilirubin CK-MB (CK-2) C-Reactive Protein NT-Pro-B Natriuret Pep Total Protein Albumin Arterial Blood Glucose Urine WBC (Auto) Urine Creatinine 11/25/19 11/25/19 11/25/19 00:18 03:18 05:11 WBC 13.7 H RBC Hgb Hct MCHC RDW 17.1 H MCV MCH Lymph % (Auto) 10.8 L [place] % (Auto) 8.7 H [place] # 1.2 H Eos # Lymph # (Auto) [place] # (Auto) Eos # (Auto) Seg Neutrophils % 80.2 H Seg Neuts % (Manual) Baso # (Auto) Lymphocytes % (Manual) Monocytes % (Manual) Eosinophils % (Manual) Basophils % (Manual) Seg Neutrophils # 11.0 H Seg Neutrophils # Man Lymphocytes # (Manual) Monocytes # (Manual) Eosinophils # (Manual) Nucleated RBC % Basophils # (Manual) PT INR APTT Heparin Anti-Xa Level ABG pH 7.333 L POC ABG pO2 ABG pO2 61.2 L ABG HCO3 ABG O2 Saturation 90.2 L ABG Base Excess POC ABG pCO2 ABG Hemoglobin 13.7 L ABG Oxyhemoglobin ABG Chloride ABG Glucose Oxyhemoglobin 88.2 L Sodium Potassium Chloride Carbon Dioxide BUN Creatinine Glucose POC Glucose 109 H Lactic Acid Calcium Phosphorus Magnesium AST ALT Lactate Dehydrogenase Total Bilirubin Direct Bilirubin CK-MB (CK-2) C-Reactive Protein NT-Pro-B Natriuret Pep Total Protein Albumin Arterial Blood Glucose Urine WBC (Auto) Urine Creatinine 11/25/19 11/25/19 11/26/19 05:11 11:40 03:12 WBC RBC Hgb Hct MCHC RDW MCV MCH Lymph % (Auto) [place] % (Auto) [place] # Eos # Lymph # (Auto) [place] # (Auto) Eos # (Auto) Seg Neutrophils % Seg Neuts % (Manual) Baso # (Auto) Lymphocytes % (Manual) Monocytes % (Manual) Eosinophils % (Manual) Basophils % (Manual) Seg Neutrophils # Seg Neutrophils # Man Lymphocytes # (Manual) Monocytes # (Manual) Eosinophils # (Manual) Nucleated RBC % Basophils # (Manual) PT INR APTT Heparin Anti-Xa Level ABG pH POC ABG pO2 ABG pO2 155.1 H ABG HCO3 27.8 H ABG O2 Saturation ABG Base Excess POC ABG pCO2 ABG Hemoglobin 12.2 L ABG Oxyhemoglobin ABG Chloride ABG Glucose Oxyhemoglobin Sodium Potassium Chloride Carbon Dioxide BUN 23 H Creatinine Glucose 110 H POC Glucose 108 H Lactic Acid Calcium Phosphorus Magnesium AST ALT Lactate Dehydrogenase Total Bilirubin Direct Bilirubin CK-MB (CK-2) C-Reactive Protein NT-Pro-B Natriuret Pep Total Protein Albumin Arterial Blood Glucose Urine WBC (Auto) Urine Creatinine 11/26/19 11/26/19 11/26/19 06:17 10:43 10:43 WBC 11.4 H RBC Hgb Hct MCHC RDW 17.1 H MCV MCH Lymph % (Auto) [place] % (Auto) [place] # Eos # Lymph # (Auto) [place] # (Auto) Eos # (Auto) Seg Neutrophils % Seg Neuts % (Manual) Baso # (Auto) Lymphocytes % (Manual) Monocytes % (Manual) Eosinophils % (Manual) Basophils % (Manual) Seg Neutrophils # Seg Neutrophils # Man Lymphocytes # (Manual) Monocytes # (Manual) Eosinophils # (Manual) Nucleated RBC % Basophils # (Manual) PT INR APTT Heparin Anti-Xa Level ABG pH POC ABG pO2 ABG pO2 ABG HCO3 ABG O2 Saturation ABG Base Excess POC ABG pCO2 ABG Hemoglobin ABG Oxyhemoglobin ABG Chloride ABG Glucose Oxyhemoglobin Sodium Potassium Chloride Carbon Dioxide BUN 29 H Creatinine Glucose POC Glucose 107 H Lactic Acid Calcium Phosphorus Magnesium AST ALT Lactate Dehydrogenase Total Bilirubin Direct Bilirubin CK-MB (CK-2) C-Reactive Protein NT-Pro-B Natriuret Pep Total Protein Albumin Arterial Blood Glucose Urine WBC (Auto) Urine Creatinine 11/26/19 11/27/19 11/27/19 17:11 01:53 04:11 WBC RBC Hgb Hct MCHC RDW MCV MCH Lymph % (Auto) [place] % (Auto) [place] # Eos # Lymph # (Auto) [place] # (Auto) Eos # (Auto) Seg Neutrophils % Seg Neuts % (Manual) Baso # (Auto) Lymphocytes % (Manual) Monocytes % (Manual) Eosinophils % (Manual) Basophils % (Manual) Seg Neutrophils # Seg Neutrophils # Man Lymphocytes # (Manual) Monocytes # (Manual) Eosinophils # (Manual) Nucleated RBC % Basophils # (Manual) PT INR APTT Heparin Anti-Xa Level ABG pH POC ABG pO2 ABG pO2 ABG HCO3 29.2 H ABG O2 Saturation ABG Base Excess 3.4 H POC ABG pCO2 ABG Hemoglobin 13.3 L ABG Oxyhemoglobin ABG Chloride ABG Glucose Oxyhemoglobin 94.5 L Sodium Potassium Chloride Carbon Dioxide BUN Creatinine Glucose POC Glucose 113 H 108 H Lactic Acid Calcium Phosphorus Magnesium AST ALT Lactate Dehydrogenase Total Bilirubin Direct Bilirubin CK-MB (CK-2) C-Reactive Protein NT-Pro-B Natriuret Pep Total Protein Albumin Arterial Blood Glucose Urine WBC (Auto) Urine Creatinine 11/27/19 11/28/19 11/28/19 05:27 05:00 05:25 WBC RBC Hgb Hct MCHC RDW MCV MCH Lymph % (Auto) [place] % (Auto) [place] # Eos # Lymph # (Auto) [place] # (Auto) Eos # (Auto) Seg Neutrophils % Seg Neuts % (Manual) Baso # (Auto) Lymphocytes % (Manual) Monocytes % (Manual) Eosinophils % (Manual) Basophils % (Manual) Seg Neutrophils # Seg Neutrophils # Man Lymphocytes # (Manual) Monocytes # (Manual) Eosinophils # (Manual) Nucleated RBC % Basophils # (Manual) PT INR APTT Heparin Anti-Xa Level ABG pH POC ABG pO2 68.1 L ABG pO2 ABG HCO3 ABG O2 Saturation ABG Base Excess POC ABG pCO2 ABG Hemoglobin ABG Oxyhemoglobin 91.2 L ABG Chloride ABG Glucose Oxyhemoglobin Sodium Potassium Chloride Carbon Dioxide BUN Creatinine Glucose POC Glucose 111 H 110 H Lactic Acid Calcium Phosphorus Magnesium AST ALT Lactate Dehydrogenase Total Bilirubin Direct Bilirubin CK-MB (CK-2) C-Reactive Protein NT-Pro-B Natriuret Pep Total Protein Albumin Arterial Blood Glucose Urine WBC (Auto) Urine Creatinine 11/28/19 11/28/19 11/28/19 12:08 13:47 13:47 WBC 11.3 H RBC Hgb Hct MCHC RDW 16.1 H MCV MCH Lymph % (Auto) [place] % (Auto) 9.9 H [place] # 1.1 H Eos # Lymph # (Auto) [place] # (Auto) Eos # (Auto) Seg Neutrophils % 71.4 H Seg Neuts % (Manual) Baso # (Auto) Lymphocytes % (Manual) Monocytes % (Manual) Eosinophils % (Manual) Basophils % (Manual) Seg Neutrophils # 8.1 H Seg Neutrophils # Man Lymphocytes # (Manual) Monocytes # (Manual) Eosinophils # (Manual) Nucleated RBC % Basophils # (Manual) PT INR APTT Heparin Anti-Xa Level ABG pH POC ABG pO2 ABG pO2 ABG HCO3 ABG O2 Saturation ABG Base Excess POC ABG pCO2 ABG Hemoglobin ABG Oxyhemoglobin ABG Chloride ABG Glucose Oxyhemoglobin Sodium Potassium Chloride Carbon Dioxide BUN 23 H Creatinine Glucose 123 H POC Glucose 112 H Lactic Acid Calcium Phosphorus Magnesium AST ALT Lactate Dehydrogenase Total Bilirubin Direct Bilirubin CK-MB (CK-2) C-Reactive Protein NT-Pro-B Natriuret Pep Total Protein Albumin 3.7 L Arterial Blood Glucose Urine WBC (Auto) Urine Creatinine 11/28/19 11/29/19 11/29/19 17:26 03:55 17:04 WBC RBC Hgb Hct MCHC RDW MCV MCH Lymph % (Auto) [place] % (Auto) [place] # Eos # Lymph # (Auto) [place] # (Auto) Eos # (Auto) Seg Neutrophils % Seg Neuts % (Manual) Baso # (Auto) Lymphocytes % (Manual) Monocytes % (Manual) Eosinophils % (Manual) Basophils % (Manual) Seg Neutrophils # Seg Neutrophils # Man Lymphocytes # (Manual) Monocytes # (Manual) Eosinophils # (Manual) Nucleated RBC % Basophils # (Manual) PT INR APTT Heparin Anti-Xa Level ABG pH POC ABG pO2 ABG pO2 65.7 L ABG HCO3 28.3 H ABG O2 Saturation 93.9 L ABG Base Excess 3.6 H POC ABG pCO2 ABG Hemoglobin 13.3 L ABG Oxyhemoglobin ABG Chloride ABG Glucose Oxyhemoglobin 91.5 L Sodium Potassium Chloride Carbon Dioxide BUN Creatinine Glucose POC Glucose 123 H 119 H Lactic Acid Calcium Phosphorus Magnesium AST ALT Lactate Dehydrogenase Total Bilirubin Direct Bilirubin CK-MB (CK-2) C-Reactive Protein NT-Pro-B Natriuret Pep Total Protein Albumin Arterial Blood Glucose Urine WBC (Auto) Urine Creatinine 11/30/19 11/30/19 11/30/19 04:17 04:17 04:56 WBC 13.4 H RBC Hgb Hct MCHC RDW 15.6 H MCV MCH Lymph % (Auto) [place] % (Auto) [place] # Eos # Lymph # (Auto) [place] # (Auto) Eos # (Auto) Seg Neutrophils % Seg Neuts % (Manual) Baso # (Auto) Lymphocytes % (Manual) Monocytes % (Manual) Eosinophils % (Manual) Basophils % (Manual) Seg Neutrophils # Seg Neutrophils # Man Lymphocytes # (Manual) Monocytes # (Manual) Eosinophils # (Manual) Nucleated RBC % Basophils # (Manual) PT INR APTT Heparin Anti-Xa Level ABG pH POC ABG pO2 ABG pO2 56.3 L ABG HCO3 29.3 H ABG O2 Saturation 91.5 L ABG Base Excess 4.7 H POC ABG pCO2 ABG Hemoglobin 12.1 L ABG Oxyhemoglobin ABG Chloride ABG Glucose Oxyhemoglobin 89.2 L Sodium 147 H Potassium Chloride Carbon Dioxide BUN 30 H Creatinine Glucose 124 H POC Glucose Lactic Acid Calcium Phosphorus Magnesium AST ALT Lactate Dehydrogenase Total Bilirubin Direct Bilirubin CK-MB (CK-2) C-Reactive Protein NT-Pro-B Natriuret Pep Total Protein Albumin 3.8 L Arterial Blood Glucose Urine WBC (Auto) Urine Creatinine 11/30/19 11/30/19 11/30/19 05:51 11:54 18:17 WBC RBC Hgb Hct MCHC RDW MCV MCH Lymph % (Auto) [place] % (Auto) [place] # Eos # Lymph # (Auto) [place] # (Auto) Eos # (Auto) Seg Neutrophils % Seg Neuts % (Manual) Baso # (Auto) Lymphocytes % (Manual) Monocytes % (Manual) Eosinophils % (Manual) Basophils % (Manual) Seg Neutrophils # Seg Neutrophils # Man Lymphocytes # (Manual) Monocytes # (Manual) Eosinophils # (Manual) Nucleated RBC % Basophils # (Manual) PT INR APTT Heparin Anti-Xa Level ABG pH POC ABG pO2 ABG pO2 ABG HCO3 ABG O2 Saturation ABG Base Excess POC ABG pCO2 ABG Hemoglobin ABG Oxyhemoglobin ABG Chloride ABG Glucose Oxyhemoglobin Sodium Potassium Chloride Carbon Dioxide BUN Creatinine Glucose POC Glucose 127 H 115 H 143 H Lactic Acid Calcium Phosphorus Magnesium AST ALT Lactate Dehydrogenase Total Bilirubin Direct Bilirubin CK-MB (CK-2) C-Reactive Protein NT-Pro-B Natriuret Pep Total Protein Albumin Arterial Blood Glucose Urine WBC (Auto) Urine Creatinine 12/01/19 12/01/19 12/01/19 01:18 05:22 12:16 WBC RBC Hgb Hct MCHC RDW MCV MCH Lymph % (Auto) [place] % (Auto) [place] # Eos # Lymph # (Auto) [place] # (Auto) Eos # (Auto) Seg Neutrophils % Seg Neuts % (Manual) Baso # (Auto) Lymphocytes % (Manual) Monocytes % (Manual) Eosinophils % (Manual) Basophils % (Manual) Seg Neutrophils # Seg Neutrophils # Man Lymphocytes # (Manual) Monocytes # (Manual) Eosinophils # (Manual) Nucleated RBC % Basophils # (Manual) PT INR APTT Heparin Anti-Xa Level ABG pH POC ABG pO2 ABG pO2 ABG HCO3 ABG O2 Saturation ABG Base Excess POC ABG pCO2 ABG Hemoglobin ABG Oxyhemoglobin ABG Chloride ABG Glucose Oxyhemoglobin Sodium Potassium 3.5 L Chloride 107.8 H Carbon Dioxide BUN 37 H Creatinine Glucose 157 H POC Glucose 118 H 148 H Lactic Acid Calcium 8.2 L D Phosphorus Magnesium AST 48 H ALT 60 H Lactate Dehydrogenase 194 H Total Bilirubin Direct Bilirubin CK-MB (CK-2) C-Reactive Protein 8.50 H NT-Pro-B Natriuret Pep Total Protein 5.5 L Albumin 2.8 L Arterial Blood Glucose Urine WBC (Auto) Urine Creatinine 12/01/19 12/02/19 12/02/19 18:04 00:05 05:16 WBC 11.4 H RBC Hgb Hct MCHC RDW 15.9 H MCV MCH Lymph % (Auto) [place] % (Auto) 9.9 H [place] # 1.1 H Eos # Lymph # (Auto) [place] # (Auto) Eos # (Auto) Seg Neutrophils % 70.3 H Seg Neuts % (Manual) Baso # (Auto) Lymphocytes % (Manual) Monocytes % (Manual) Eosinophils % (Manual) Basophils % (Manual) Seg Neutrophils # 8.0 H Seg Neutrophils # Man Lymphocytes # (Manual) Monocytes # (Manual) Eosinophils # (Manual) Nucleated RBC % Basophils # (Manual) PT INR APTT Heparin Anti-Xa Level ABG pH POC ABG pO2 ABG pO2 ABG HCO3 ABG O2 Saturation ABG Base Excess POC ABG pCO2 ABG Hemoglobin ABG Oxyhemoglobin ABG Chloride ABG Glucose Oxyhemoglobin Sodium Potassium Chloride Carbon Dioxide BUN Creatinine Glucose POC Glucose 143 H 107 H Lactic Acid Calcium Phosphorus Magnesium AST ALT Lactate Dehydrogenase Total Bilirubin Direct Bilirubin CK-MB (CK-2) C-Reactive Protein NT-Pro-B Natriuret Pep Total Protein Albumin Arterial Blood Glucose Urine WBC (Auto) Urine Creatinine 12/02/19 12/02/19 12/02/19 05:16 06:03 11:52 WBC RBC Hgb Hct MCHC RDW MCV MCH Lymph % (Auto) [place] % (Auto) [place] # Eos # Lymph # (Auto) [place] # (Auto) Eos # (Auto) Seg Neutrophils % Seg Neuts % (Manual) Baso # (Auto) Lymphocytes % (Manual) Monocytes % (Manual) Eosinophils % (Manual) Basophils % (Manual) Seg Neutrophils # Seg Neutrophils # Man Lymphocytes # (Manual) Monocytes # (Manual) Eosinophils # (Manual) Nucleated RBC % Basophils # (Manual) PT INR APTT Heparin Anti-Xa Level ABG pH POC ABG pO2 ABG pO2 ABG HCO3 ABG O2 Saturation ABG Base Excess POC ABG pCO2 ABG Hemoglobin ABG Oxyhemoglobin ABG Chloride ABG Glucose Oxyhemoglobin Sodium 146 H Potassium Chloride Carbon Dioxide BUN 28 H Creatinine Glucose 123 H POC Glucose 110 H 152 H Lactic Acid Calcium Phosphorus Magnesium AST ALT Lactate Dehydrogenase Total Bilirubin Direct Bilirubin CK-MB (CK-2) C-Reactive Protein NT-Pro-B Natriuret Pep Total Protein Albumin Arterial Blood Glucose Urine WBC (Auto) Urine Creatinine 12/02/19 12/02/19 12/02/19 12:58 17:58 23:36 WBC RBC Hgb Hct MCHC RDW MCV MCH Lymph % (Auto) [place] % (Auto) [place] # Eos # Lymph # (Auto) [place] # (Auto) Eos # (Auto) Seg Neutrophils % Seg Neuts % (Manual) Baso # (Auto) Lymphocytes % (Manual) Monocytes % (Manual) Eosinophils % (Manual) Basophils % (Manual) Seg Neutrophils # Seg Neutrophils # Man Lymphocytes # (Manual) Monocytes # (Manual) Eosinophils # (Manual) Nucleated RBC % Basophils # (Manual) PT INR APTT Heparin Anti-Xa Level ABG pH POC ABG pO2 78.1 L ABG pO2 ABG HCO3 ABG O2 Saturation ABG Base Excess POC ABG pCO2 ABG Hemoglobin ABG Oxyhemoglobin ABG Chloride ABG Glucose Oxyhemoglobin Sodium Potassium Chloride Carbon Dioxide BUN Creatinine Glucose POC Glucose 120 H 123 H Lactic Acid Calcium Phosphorus Magnesium AST ALT Lactate Dehydrogenase Total Bilirubin Direct Bilirubin CK-MB (CK-2) C-Reactive Protein NT-Pro-B Natriuret Pep Total Protein Albumin Arterial Blood Glucose Urine WBC (Auto) Urine Creatinine 12/03/19 12/03/19 12/03/19 06:03 06:14 11:46 WBC RBC Hgb Hct MCHC RDW MCV MCH Lymph % (Auto) [place] % (Auto) [place] # Eos # Lymph # (Auto) [place] # (Auto) Eos # (Auto) Seg Neutrophils % Seg Neuts % (Manual) Baso # (Auto) Lymphocytes % (Manual) Monocytes % (Manual) Eosinophils % (Manual) Basophils % (Manual) Seg Neutrophils # Seg Neutrophils # Man Lymphocytes # (Manual) Monocytes # (Manual) Eosinophils # (Manual) Nucleated RBC % Basophils # (Manual) PT INR APTT Heparin Anti-Xa Level ABG pH POC ABG pO2 ABG pO2 ABG HCO3 ABG O2 Saturation ABG Base Excess POC ABG pCO2 ABG Hemoglobin ABG Oxyhemoglobin ABG Chloride ABG Glucose Oxyhemoglobin Sodium Potassium Chloride Carbon Dioxide BUN Creatinine Glucose POC Glucose 142 H 130 H Lactic Acid Calcium Phosphorus Magnesium AST ALT Lactate Dehydrogenase Total Bilirubin Direct Bilirubin CK-MB (CK-2) C-Reactive Protein NT-Pro-B Natriuret Pep Total Protein Albumin Arterial Blood Glucose Urine WBC (Auto) 8.0 H Urine Creatinine 12/03/19 12/03/19 12/04/19 15:50 17:39 00:04 WBC RBC Hgb Hct MCHC RDW MCV MCH Lymph % (Auto) [place] % (Auto) [place] # Eos # Lymph # (Auto) [place] # (Auto) Eos # (Auto) Seg Neutrophils % Seg Neuts % (Manual) Baso # (Auto) Lymphocytes % (Manual) Monocytes % (Manual) Eosinophils % (Manual) Basophils % (Manual) Seg Neutrophils # Seg Neutrophils # Man Lymphocytes # (Manual) Monocytes # (Manual) Eosinophils # (Manual) Nucleated RBC % Basophils # (Manual) PT INR APTT Heparin Anti-Xa Level ABG pH POC ABG pO2 ABG pO2 ABG HCO3 ABG O2 Saturation ABG Base Excess POC ABG pCO2 ABG Hemoglobin ABG Oxyhemoglobin ABG Chloride ABG Glucose Oxyhemoglobin Sodium Potassium Chloride Carbon Dioxide BUN Creatinine Glucose POC Glucose 146 H 133 H Lactic Acid Calcium Phosphorus 2.40 L Magnesium AST ALT Lactate Dehydrogenase Total Bilirubin Direct Bilirubin CK-MB (CK-2) C-Reactive Protein NT-Pro-B Natriuret Pep Total Protein Albumin Arterial Blood Glucose Urine WBC (Auto) Urine Creatinine 12/04/19 12/04/19 12/04/19 03:58 03:58 05:22 WBC 12.5 H RBC Hgb 11.2 L Hct 35.2 L MCHC RDW 16.0 H MCV MCH Lymph % (Auto) [place] % (Auto) 9.6 H [place] # 1.2 H Eos # 0.5 H Lymph # (Auto) [place] # (Auto) Eos # (Auto) Seg Neutrophils % Seg Neuts % (Manual) Baso # (Auto) Lymphocytes % (Manual) Monocytes % (Manual) Eosinophils % (Manual) Basophils % (Manual) Seg Neutrophils # 8.6 H Seg Neutrophils # Man Lymphocytes # (Manual) Monocytes # (Manual) Eosinophils # (Manual) Nucleated RBC % Basophils # (Manual) PT INR APTT Heparin Anti-Xa Level ABG pH POC ABG pO2 ABG pO2 ABG HCO3 ABG O2 Saturation ABG Base Excess POC ABG pCO2 ABG Hemoglobin ABG Oxyhemoglobin ABG Chloride ABG Glucose Oxyhemoglobin Sodium 146 H Potassium Chloride 108.6 H Carbon Dioxide BUN 30 H Creatinine 0.7 L Glucose 121 H POC Glucose 132 H Lactic Acid Calcium Phosphorus Magnesium AST ALT Lactate Dehydrogenase Total Bilirubin Direct Bilirubin CK-MB (CK-2) C-Reactive Protein NT-Pro-B Natriuret Pep Total Protein Albumin Arterial Blood Glucose Urine WBC (Auto) Urine Creatinine 12/04/19 12/04/19 12/05/19 13:26 18:43 00:19 WBC RBC Hgb Hct MCHC RDW MCV MCH Lymph % (Auto) [place] % (Auto) [place] # Eos # Lymph # (Auto) [place] # (Auto) Eos # (Auto) Seg Neutrophils % Seg Neuts % (Manual) Baso # (Auto) Lymphocytes % (Manual) Monocytes % (Manual) Eosinophils % (Manual) Basophils % (Manual) Seg Neutrophils # Seg Neutrophils # Man Lymphocytes # (Manual) Monocytes # (Manual) Eosinophils # (Manual) Nucleated RBC % Basophils # (Manual) PT INR APTT Heparin Anti-Xa Level ABG pH POC ABG pO2 ABG pO2 ABG HCO3 ABG O2 Saturation ABG Base Excess POC ABG pCO2 ABG Hemoglobin ABG Oxyhemoglobin ABG Chloride ABG Glucose Oxyhemoglobin Sodium Potassium Chloride Carbon Dioxide BUN Creatinine Glucose POC Glucose 185 H 156 H 150 H Lactic Acid Calcium Phosphorus Magnesium AST ALT Lactate Dehydrogenase Total Bilirubin Direct Bilirubin CK-MB (CK-2) C-Reactive Protein NT-Pro-B Natriuret Pep Total Protein Albumin Arterial Blood Glucose Urine WBC (Auto) Urine Creatinine 12/05/19 12/05/19 12/05/19 03:37 03:37 05:14 WBC 16.3 H RBC Hgb 11.4 L Hct MCHC RDW 15.6 H MCV MCH Lymph % (Auto) 9.9 L [place] % (Auto) 9.7 H [place] # 1.6 H Eos # Lymph # (Auto) [place] # (Auto) Eos # (Auto) Seg Neutrophils % 78.0 H Seg Neuts % (Manual) Baso # (Auto) Lymphocytes % (Manual) Monocytes % (Manual) Eosinophils % (Manual) Basophils % (Manual) Seg Neutrophils # 12.7 H Seg Neutrophils # Man Lymphocytes # (Manual) Monocytes # (Manual) Eosinophils # (Manual) Nucleated RBC % Basophils # (Manual) PT INR APTT Heparin Anti-Xa Level ABG pH POC ABG pO2 ABG pO2 ABG HCO3 ABG O2 Saturation ABG Base Excess POC ABG pCO2 ABG Hemoglobin ABG Oxyhemoglobin ABG Chloride ABG Glucose Oxyhemoglobin Sodium 146 H Potassium Chloride 107.2 H Carbon Dioxide BUN 27 H Creatinine 0.7 L Glucose 171 H POC Glucose 168 H Lactic Acid Calcium Phosphorus Magnesium AST ALT Lactate Dehydrogenase Total Bilirubin Direct Bilirubin CK-MB (CK-2) C-Reactive Protein NT-Pro-B Natriuret Pep Total Protein Albumin Arterial Blood Glucose Urine WBC (Auto) Urine Creatinine 12/05/19 12/05/19 12/05/19 12:31 18:10 23:58 WBC RBC Hgb Hct MCHC RDW MCV MCH Lymph % (Auto) [place] % (Auto) [place] # Eos # Lymph # (Auto) [place] # (Auto) Eos # (Auto) Seg Neutrophils % Seg Neuts % (Manual) Baso # (Auto) Lymphocytes % (Manual) Monocytes % (Manual) Eosinophils % (Manual) Basophils % (Manual) Seg Neutrophils # Seg Neutrophils # Man Lymphocytes # (Manual) Monocytes # (Manual) Eosinophils # (Manual) Nucleated RBC % Basophils # (Manual) PT INR APTT Heparin Anti-Xa Level ABG pH POC ABG pO2 ABG pO2 ABG HCO3 ABG O2 Saturation ABG Base Excess POC ABG pCO2 ABG Hemoglobin ABG Oxyhemoglobin ABG Chloride ABG Glucose Oxyhemoglobin Sodium Potassium Chloride Carbon Dioxide BUN Creatinine Glucose POC Glucose 159 H 198 H 115 H Lactic Acid Calcium Phosphorus Magnesium AST ALT Lactate Dehydrogenase Total Bilirubin Direct Bilirubin CK-MB (CK-2) C-Reactive Protein NT-Pro-B Natriuret Pep Total Protein Albumin Arterial Blood Glucose Urine WBC (Auto) Urine Creatinine 12/06/19 12/06/19 12/06/19 05:24 05:24 05:25 WBC 14.9 H RBC Hgb 10.8 L Hct 34.0 L MCHC RDW 15.6 H MCV MCH Lymph % (Auto) 10.7 L [place] % (Auto) 8.3 H [place] # 1.2 H Eos # Lymph # (Auto) [place] # (Auto) Eos # (Auto) Seg Neutrophils % 78.7 H Seg Neuts % (Manual) Baso # (Auto) Lymphocytes % (Manual) Monocytes % (Manual) Eosinophils % (Manual) Basophils % (Manual) Seg Neutrophils # 11.7 H Seg Neutrophils # Man Lymphocytes # (Manual) Monocytes # (Manual) Eosinophils # (Manual) Nucleated RBC % Basophils # (Manual) PT INR APTT Heparin Anti-Xa Level ABG pH POC ABG pO2 ABG pO2 ABG HCO3 ABG O2 Saturation ABG Base Excess POC ABG pCO2 ABG Hemoglobin ABG Oxyhemoglobin ABG Chloride ABG Glucose Oxyhemoglobin Sodium 148 H Potassium 5.1 H Chloride 107.6 H Carbon Dioxide BUN 27 H Creatinine 0.7 L Glucose 155 H POC Glucose 157 H Lactic Acid Calcium Phosphorus Magnesium AST ALT Lactate Dehydrogenase Total Bilirubin Direct Bilirubin CK-MB (CK-2) C-Reactive Protein NT-Pro-B Natriuret Pep Total Protein Albumin Arterial Blood Glucose Urine WBC (Auto) Urine Creatinine 12/07/19 12/07/19 12/07/19 00:13 05:34 11:33 WBC RBC Hgb Hct MCHC RDW MCV MCH Lymph % (Auto) [place] % (Auto) [place] # Eos # Lymph # (Auto) [place] # (Auto) Eos # (Auto) Seg Neutrophils % Seg Neuts % (Manual) Baso # (Auto) Lymphocytes % (Manual) Monocytes % (Manual) Eosinophils % (Manual) Basophils % (Manual) Seg Neutrophils # Seg Neutrophils # Man Lymphocytes # (Manual) Monocytes # (Manual) Eosinophils # (Manual) Nucleated RBC % Basophils # (Manual) PT INR APTT Heparin Anti-Xa Level ABG pH POC ABG pO2 ABG pO2 ABG HCO3 ABG O2 Saturation ABG Base Excess POC ABG pCO2 ABG Hemoglobin ABG Oxyhemoglobin ABG Chloride ABG Glucose Oxyhemoglobin Sodium Potassium Chloride Carbon Dioxide BUN Creatinine Glucose POC Glucose 142 H 111 H 169 H Lactic Acid Calcium Phosphorus Magnesium AST ALT Lactate Dehydrogenase Total Bilirubin Direct Bilirubin CK-MB (CK-2) C-Reactive Protein NT-Pro-B Natriuret Pep Total Protein Albumin Arterial Blood Glucose Urine WBC (Auto) Urine Creatinine 12/07/19 12/07/19 12/07/19 12:41 13:25 18:19 WBC 12.4 H RBC 3.53 L Hgb 10.2 L Hct 32.1 L MCHC RDW 15.3 H MCV MCH Lymph % (Auto) 10.6 L [place] % (Auto) 7.8 H [place] # 1.0 H Eos # Lymph # (Auto) [place] # (Auto) Eos # (Auto) Seg Neutrophils % 77.6 H Seg Neuts % (Manual) Baso # (Auto) Lymphocytes % (Manual) Monocytes % (Manual) Eosinophils % (Manual) Basophils % (Manual) Seg Neutrophils # 9.6 H Seg Neutrophils # Man Lymphocytes # (Manual) Monocytes # (Manual) Eosinophils # (Manual) Nucleated RBC % Basophils # (Manual) PT INR APTT Heparin Anti-Xa Level ABG pH POC ABG pO2 ABG pO2 ABG HCO3 ABG O2 Saturation ABG Base Excess POC ABG pCO2 ABG Hemoglobin ABG Oxyhemoglobin ABG Chloride ABG Glucose Oxyhemoglobin Sodium 149 H Potassium Chloride 108.4 H Carbon Dioxide BUN 26 H Creatinine 0.6 L Glucose 149 H POC Glucose 164 H Lactic Acid Calcium Phosphorus Magnesium 2.60 H AST 121 H ALT 145 H Lactate Dehydrogenase Total Bilirubin Direct Bilirubin CK-MB (CK-2) C-Reactive Protein NT-Pro-B Natriuret Pep Total Protein Albumin 2.6 L Arterial Blood Glucose Urine WBC (Auto) Urine Creatinine 12/07/19 12/08/19 12/08/19 22:25 00:02 03:55 WBC 13.3 H RBC 3.40 L Hgb 9.7 L Hct 30.8 L MCHC 31 L RDW 15.5 H MCV MCH Lymph % (Auto) [place] % (Auto) 8.1 H [place] # 1.1 H Eos # Lymph # (Auto) [place] # (Auto) Eos # (Auto) Seg Neutrophils % 73.0 H Seg Neuts % (Manual) Baso # (Auto) Lymphocytes % (Manual) Monocytes % (Manual) Eosinophils % (Manual) Basophils % (Manual) Seg Neutrophils # 9.7 H Seg Neutrophils # Man Lymphocytes # (Manual) Monocytes # (Manual) Eosinophils # (Manual) Nucleated RBC % Basophils # (Manual) PT INR APTT Heparin Anti-Xa Level 0.12 L ABG pH POC ABG pO2 ABG pO2 ABG HCO3 ABG O2 Saturation ABG Base Excess POC ABG pCO2 ABG Hemoglobin ABG Oxyhemoglobin ABG Chloride ABG Glucose Oxyhemoglobin Sodium Potassium Chloride Carbon Dioxide BUN Creatinine Glucose POC Glucose 151 H Lactic Acid Calcium Phosphorus Magnesium AST ALT Lactate Dehydrogenase Total Bilirubin Direct Bilirubin CK-MB (CK-2) C-Reactive Protein NT-Pro-B Natriuret Pep Total Protein Albumin Arterial Blood Glucose Urine WBC (Auto) Urine Creatinine 12/08/19 12/08/19 12/08/19 03:55 05:21 06:01 WBC RBC Hgb Hct MCHC RDW MCV MCH Lymph % (Auto) [place] % (Auto) [place] # Eos # Lymph # (Auto) [place] # (Auto) Eos # (Auto) Seg Neutrophils % Seg Neuts % (Manual) Baso # (Auto) Lymphocytes % (Manual) Monocytes % (Manual) Eosinophils % (Manual) Basophils % (Manual) Seg Neutrophils # Seg Neutrophils # Man Lymphocytes # (Manual) Monocytes # (Manual) Eosinophils # (Manual) Nucleated RBC % Basophils # (Manual) PT INR APTT Heparin Anti-Xa Level 0.20 L ABG pH POC ABG pO2 ABG pO2 ABG HCO3 ABG O2 Saturation ABG Base Excess POC ABG pCO2 ABG Hemoglobin ABG Oxyhemoglobin ABG Chloride ABG Glucose Oxyhemoglobin Sodium 149 H Potassium Chloride 108.0 H Carbon Dioxide BUN 28 H Creatinine 0.6 L Glucose 144 H POC Glucose 143 H Lactic Acid Calcium Phosphorus Magnesium AST 98 H ALT 145 H Lactate Dehydrogenase Total Bilirubin Direct Bilirubin CK-MB (CK-2) C-Reactive Protein NT-Pro-B Natriuret Pep Total Protein 6.0 L Albumin 2.4 L Arterial Blood Glucose Urine WBC (Auto) Urine Creatinine 12/08/19 12/08/19 12/08/19 12:08 18:11 23:53 WBC RBC Hgb Hct MCHC RDW MCV MCH Lymph % (Auto) [place] % (Auto) [place] # Eos # Lymph # (Auto) [place] # (Auto) Eos # (Auto) Seg Neutrophils % Seg Neuts % (Manual) Baso # (Auto) Lymphocytes % (Manual) Monocytes % (Manual) Eosinophils % (Manual) Basophils % (Manual) Seg Neutrophils # Seg Neutrophils # Man Lymphocytes # (Manual) Monocytes # (Manual) Eosinophils # (Manual) Nucleated RBC % Basophils # (Manual) PT INR APTT Heparin Anti-Xa Level ABG pH POC ABG pO2 ABG pO2 ABG HCO3 ABG O2 Saturation ABG Base Excess POC ABG pCO2 ABG Hemoglobin ABG Oxyhemoglobin ABG Chloride ABG Glucose Oxyhemoglobin Sodium Potassium Chloride Carbon Dioxide BUN Creatinine Glucose POC Glucose 172 H 122 H 162 H Lactic Acid Calcium Phosphorus Magnesium AST ALT Lactate Dehydrogenase Total Bilirubin Direct Bilirubin CK-MB (CK-2) C-Reactive Protein NT-Pro-B Natriuret Pep Total Protein Albumin Arterial Blood Glucose Urine WBC (Auto) Urine Creatinine 12/09/19 12/09/19 12/09/19 04:03 04:03 05:53 WBC RBC Hgb 9.1 L Hct 28.9 L MCHC RDW MCV MCH Lymph % (Auto) [place] % (Auto) [place] # Eos # Lymph # (Auto) [place] # (Auto) Eos # (Auto) Seg Neutrophils % Seg Neuts % (Manual) Baso # (Auto) Lymphocytes % (Manual) Monocytes % (Manual) Eosinophils % (Manual) Basophils % (Manual) Seg Neutrophils # Seg Neutrophils # Man Lymphocytes # (Manual) Monocytes # (Manual) Eosinophils # (Manual) Nucleated RBC % Basophils # (Manual) PT INR APTT Heparin Anti-Xa Level 0.15 L ABG pH POC ABG pO2 ABG pO2 ABG HCO3 ABG O2 Saturation ABG Base Excess POC ABG pCO2 ABG Hemoglobin ABG Oxyhemoglobin ABG Chloride ABG Glucose Oxyhemoglobin Sodium Potassium Chloride Carbon Dioxide BUN Creatinine Glucose POC Glucose 124 H Lactic Acid Calcium Phosphorus Magnesium AST ALT Lactate Dehydrogenase Total Bilirubin Direct Bilirubin CK-MB (CK-2) C-Reactive Protein NT-Pro-B Natriuret Pep Total Protein Albumin Arterial Blood Glucose Urine WBC (Auto) Urine Creatinine 12/09/19 12/09/19 12/10/19 09:43 12:41 00:13 WBC RBC Hgb Hct MCHC RDW MCV MCH Lymph % (Auto) [place] % (Auto) [place] # Eos # Lymph # (Auto) [place] # (Auto) Eos # (Auto) Seg Neutrophils % Seg Neuts % (Manual) Baso # (Auto) Lymphocytes % (Manual) Monocytes % (Manual) Eosinophils % (Manual) Basophils % (Manual) Seg Neutrophils # Seg Neutrophils # Man Lymphocytes # (Manual) Monocytes # (Manual) Eosinophils # (Manual) Nucleated RBC % Basophils # (Manual) PT INR APTT Heparin Anti-Xa Level ABG pH POC ABG pO2 ABG pO2 ABG HCO3 ABG O2 Saturation ABG Base Excess POC ABG pCO2 ABG Hemoglobin ABG Oxyhemoglobin ABG Chloride ABG Glucose Oxyhemoglobin Sodium Potassium Chloride Carbon Dioxide BUN 25 H Creatinine 0.6 L Glucose 131 H POC Glucose 109 H 120 H Lactic Acid Calcium Phosphorus Magnesium AST ALT Lactate Dehydrogenase Total Bilirubin Direct Bilirubin CK-MB (CK-2) C-Reactive Protein NT-Pro-B Natriuret Pep Total Protein Albumin Arterial Blood Glucose Urine WBC (Auto) Urine Creatinine 12/10/19 12/10/19 12/10/19 04:14 04:14 12:00 WBC 13.3 H RBC 3.34 L Hgb 9.6 L Hct 30.4 L MCHC RDW 15.4 H MCV MCH Lymph % (Auto) [place] % (Auto) [place] # Eos # Lymph # (Auto) [place] # (Auto) Eos # (Auto) Seg Neutrophils % Seg Neuts % (Manual) 75.0 H Baso # (Auto) Lymphocytes % (Manual) 13.0 L Monocytes % (Manual) 8.0 H Eosinophils % (Manual) Basophils % (Manual) 2.0 H Seg Neutrophils # Seg Neutrophils # Man 10.0 H Lymphocytes # (Manual) Monocytes # (Manual) 1.1 H Eosinophils # (Manual) Nucleated RBC % Basophils # (Manual) 0.3 H PT INR APTT Heparin Anti-Xa Level ABG pH POC ABG pO2 ABG pO2 ABG HCO3 ABG O2 Saturation ABG Base Excess POC ABG pCO2 ABG Hemoglobin ABG Oxyhemoglobin ABG Chloride ABG Glucose Oxyhemoglobin Sodium 147 H Potassium Chloride 108.3 H Carbon Dioxide BUN 21 H Creatinine 0.6 L Glucose 104 H POC Glucose 133 H Lactic Acid Calcium Phosphorus Magnesium AST ALT Lactate Dehydrogenase Total Bilirubin Direct Bilirubin CK-MB (CK-2) C-Reactive Protein NT-Pro-B Natriuret Pep Total Protein Albumin Arterial Blood Glucose Urine WBC (Auto) Urine Creatinine 12/10/19 12/10/19 12/11/19 18:44 21:20 00:08 WBC 14.9 H RBC 3.36 L Hgb 9.6 L Hct 30.5 L MCHC RDW 15.4 H MCV MCH Lymph % (Auto) [place] % (Auto) [place] # Eos # Lymph # (Auto) [place] # (Auto) Eos # (Auto) Seg Neutrophils % Seg Neuts % (Manual) Baso # (Auto) Lymphocytes % (Manual) Monocytes % (Manual) Eosinophils % (Manual) Basophils % (Manual) Seg Neutrophils # Seg Neutrophils # Man Lymphocytes # (Manual) Monocytes # (Manual) Eosinophils # (Manual) Nucleated RBC % Basophils # (Manual) PT INR APTT Heparin Anti-Xa Level ABG pH POC ABG pO2 ABG pO2 ABG HCO3 ABG O2 Saturation ABG Base Excess POC ABG pCO2 ABG Hemoglobin ABG Oxyhemoglobin ABG Chloride ABG Glucose Oxyhemoglobin Sodium Potassium Chloride Carbon Dioxide BUN Creatinine Glucose POC Glucose 119 H 134 H Lactic Acid Calcium Phosphorus Magnesium AST ALT Lactate Dehydrogenase Total Bilirubin Direct Bilirubin CK-MB (CK-2) C-Reactive Protein NT-Pro-B Natriuret Pep Total Protein Albumin Arterial Blood Glucose Urine WBC (Auto) Urine Creatinine 12/11/19 12/11/19 12/11/19 03:54 07:28 08:36 WBC 11.9 H RBC 3.25 L Hgb 9.6 L Hct 29.2 L MCHC RDW 15.7 H MCV MCH Lymph % (Auto) [place] % (Auto) [place] # Eos # Lymph # (Auto) [place] # (Auto) Eos # (Auto) Seg Neutrophils % Seg Neuts % (Manual) Baso # (Auto) Lymphocytes % (Manual) Monocytes % (Manual) Eosinophils % (Manual) Basophils % (Manual) Seg Neutrophils # Seg Neutrophils # Man Lymphocytes # (Manual) Monocytes # (Manual) Eosinophils # (Manual) Nucleated RBC % Basophils # (Manual) PT INR APTT Heparin Anti-Xa Level 0.10 L 0.16 L ABG pH POC ABG pO2 ABG pO2 ABG HCO3 ABG O2 Saturation ABG Base Excess POC ABG pCO2 ABG Hemoglobin ABG Oxyhemoglobin ABG Chloride ABG Glucose Oxyhemoglobin Sodium Potassium Chloride Carbon Dioxide BUN Creatinine Glucose POC Glucose Lactic Acid Calcium Phosphorus Magnesium AST ALT Lactate Dehydrogenase Total Bilirubin Direct Bilirubin CK-MB (CK-2) C-Reactive Protein NT-Pro-B Natriuret Pep Total Protein Albumin Arterial Blood Glucose Urine WBC (Auto) Urine Creatinine 12/11/19 12/11/19 12/11/19 08:36 11:45 17:15 WBC RBC Hgb Hct MCHC RDW MCV MCH Lymph % (Auto) [place] % (Auto) [place] # Eos # Lymph # (Auto) [place] # (Auto) Eos # (Auto) Seg Neutrophils % Seg Neuts % (Manual) Baso # (Auto) Lymphocytes % (Manual) Monocytes % (Manual) Eosinophils % (Manual) Basophils % (Manual) Seg Neutrophils # Seg Neutrophils # Man Lymphocytes # (Manual) Monocytes # (Manual) Eosinophils # (Manual) Nucleated RBC % Basophils # (Manual) PT INR APTT Heparin Anti-Xa Level ABG pH POC ABG pO2 ABG pO2 ABG HCO3 ABG O2 Saturation ABG Base Excess POC ABG pCO2 ABG Hemoglobin ABG Oxyhemoglobin ABG Chloride ABG Glucose Oxyhemoglobin Sodium Potassium Chloride Carbon Dioxide BUN Creatinine 0.5 L Glucose 128 H POC Glucose 136 H 109 H Lactic Acid Calcium Phosphorus Magnesium AST ALT Lactate Dehydrogenase Total Bilirubin Direct Bilirubin CK-MB (CK-2) C-Reactive Protein NT-Pro-B Natriuret Pep Total Protein Albumin Arterial Blood Glucose Urine WBC (Auto) Urine Creatinine 12/12/19 12/12/19 12/12/19 00:03 05:53 05:53 WBC RBC Hgb 8.8 L Hct 27.6 L MCHC RDW MCV MCH Lymph % (Auto) [place] % (Auto) [place] # Eos # Lymph # (Auto) [place] # (Auto) Eos # (Auto) Seg Neutrophils % Seg Neuts % (Manual) Baso # (Auto) Lymphocytes % (Manual) Monocytes % (Manual) Eosinophils % (Manual) Basophils % (Manual) Seg Neutrophils # Seg Neutrophils # Man Lymphocytes # (Manual) Monocytes # (Manual) Eosinophils # (Manual) Nucleated RBC % Basophils # (Manual) PT INR APTT Heparin Anti-Xa Level 0.22 L ABG pH POC ABG pO2 ABG pO2 ABG HCO3 ABG O2 Saturation ABG Base Excess POC ABG pCO2 ABG Hemoglobin ABG Oxyhemoglobin ABG Chloride ABG Glucose Oxyhemoglobin Sodium Potassium Chloride Carbon Dioxide BUN Creatinine Glucose POC Glucose 116 H Lactic Acid Calcium Phosphorus Magnesium AST ALT Lactate Dehydrogenase Total Bilirubin Direct Bilirubin CK-MB (CK-2) C-Reactive Protein NT-Pro-B Natriuret Pep Total Protein Albumin Arterial Blood Glucose Urine WBC (Auto) Urine Creatinine 12/12/19 12/12/19 12/12/19 09:38 12:18 17:44 WBC RBC Hgb Hct MCHC RDW MCV MCH Lymph % (Auto) [place] % (Auto) [place] # Eos # Lymph # (Auto) [place] # (Auto) Eos # (Auto) Seg Neutrophils % Seg Neuts % (Manual) Baso # (Auto) Lymphocytes % (Manual) Monocytes % (Manual) Eosinophils % (Manual) Basophils % (Manual) Seg Neutrophils # Seg Neutrophils # Man Lymphocytes # (Manual) Monocytes # (Manual) Eosinophils # (Manual) Nucleated RBC % Basophils # (Manual) PT INR APTT Heparin Anti-Xa Level ABG pH POC ABG pO2 ABG pO2 ABG HCO3 ABG O2 Saturation ABG Base Excess POC ABG pCO2 ABG Hemoglobin ABG Oxyhemoglobin ABG Chloride ABG Glucose Oxyhemoglobin Sodium Potassium Chloride Carbon Dioxide BUN Creatinine Glucose POC Glucose 115 H 146 H 146 H Lactic Acid Calcium Phosphorus Magnesium AST ALT Lactate Dehydrogenase Total Bilirubin Direct Bilirubin CK-MB (CK-2) C-Reactive Protein NT-Pro-B Natriuret Pep Total Protein Albumin Arterial Blood Glucose Urine WBC (Auto) Urine Creatinine 12/12/19 12/13/19 12/13/19 23:33 05:32 05:32 WBC 13.1 H RBC 3.27 L Hgb 9.5 L Hct 29.3 L MCHC RDW 15.6 H MCV MCH Lymph % (Auto) [place] % (Auto) [place] # Eos # Lymph # (Auto) [place] # (Auto) Eos # (Auto) Seg Neutrophils % Seg Neuts % (Manual) 74.0 H Baso # (Auto) Lymphocytes % (Manual) 8.0 L Monocytes % (Manual) 9.0 H Eosinophils % (Manual) 5.0 H Basophils % (Manual) Seg Neutrophils # Seg Neutrophils # Man 9.7 H Lymphocytes # (Manual) 1.0 L Monocytes # (Manual) 1.2 H Eosinophils # (Manual) 0.7 H Nucleated RBC % Basophils # (Manual) PT INR APTT Heparin Anti-Xa Level 0.20 L ABG pH POC ABG pO2 ABG pO2 ABG HCO3 ABG O2 Saturation ABG Base Excess POC ABG pCO2 ABG Hemoglobin ABG Oxyhemoglobin ABG Chloride ABG Glucose Oxyhemoglobin Sodium Potassium Chloride Carbon Dioxide BUN Creatinine Glucose POC Glucose 126 H Lactic Acid Calcium Phosphorus Magnesium AST ALT Lactate Dehydrogenase Total Bilirubin Direct Bilirubin CK-MB (CK-2) C-Reactive Protein NT-Pro-B Natriuret Pep Total Protein Albumin Arterial Blood Glucose Urine WBC (Auto) Urine Creatinine 12/13/19 12/13/19 12/13/19 05:32 05:46 11:57 WBC RBC Hgb Hct MCHC RDW MCV MCH Lymph % (Auto) [place] % (Auto) [place] # Eos # Lymph # (Auto) [place] # (Auto) Eos # (Auto) Seg Neutrophils % Seg Neuts % (Manual) Baso # (Auto) Lymphocytes % (Manual) Monocytes % (Manual) Eosinophils % (Manual) Basophils % (Manual) Seg Neutrophils # Seg Neutrophils # Man Lymphocytes # (Manual) Monocytes # (Manual) Eosinophils # (Manual) Nucleated RBC % Basophils # (Manual) PT INR APTT Heparin Anti-Xa Level ABG pH POC ABG pO2 ABG pO2 ABG HCO3 ABG O2 Saturation ABG Base Excess POC ABG pCO2 ABG Hemoglobin ABG Oxyhemoglobin ABG Chloride ABG Glucose Oxyhemoglobin Sodium Potassium Chloride Carbon Dioxide 31 H BUN Creatinine 0.6 L Glucose 114 H POC Glucose 118 H 133 H Lactic Acid Calcium Phosphorus Magnesium AST ALT Lactate Dehydrogenase Total Bilirubin Direct Bilirubin CK-MB (CK-2) C-Reactive Protein NT-Pro-B Natriuret Pep Total Protein Albumin Arterial Blood Glucose Urine WBC (Auto) Urine Creatinine 12/13/19 12/13/19 12/14/19 17:44 23:46 05:32 WBC RBC Hgb Hct MCHC RDW MCV MCH Lymph % (Auto) [place] % (Auto) [place] # Eos # Lymph # (Auto) [place] # (Auto) Eos # (Auto) Seg Neutrophils % Seg Neuts % (Manual) Baso # (Auto) Lymphocytes % (Manual) Monocytes % (Manual) Eosinophils % (Manual) Basophils % (Manual) Seg Neutrophils # Seg Neutrophils # Man Lymphocytes # (Manual) Monocytes # (Manual) Eosinophils # (Manual) Nucleated RBC % Basophils # (Manual) PT INR APTT Heparin Anti-Xa Level ABG pH POC ABG pO2 ABG pO2 ABG HCO3 ABG O2 Saturation ABG Base Excess POC ABG pCO2 ABG Hemoglobin ABG Oxyhemoglobin ABG Chloride ABG Glucose Oxyhemoglobin Sodium Potassium Chloride Carbon Dioxide BUN Creatinine Glucose POC Glucose 161 H 126 H 139 H Lactic Acid Calcium Phosphorus Magnesium AST ALT Lactate Dehydrogenase Total Bilirubin Direct Bilirubin CK-MB (CK-2) C-Reactive Protein NT-Pro-B Natriuret Pep Total Protein Albumin Arterial Blood Glucose Urine WBC (Auto) Urine Creatinine 12/14/19 12/14/19 12/14/19 06:03 06:03 09:37 WBC RBC Hgb 9.6 L Hct 30.4 L MCHC RDW MCV MCH Lymph % (Auto) [place] % (Auto) [place] # Eos # Lymph # (Auto) [place] # (Auto) Eos # (Auto) Seg Neutrophils % Seg Neuts % (Manual) Baso # (Auto) Lymphocytes % (Manual) Monocytes % (Manual) Eosinophils % (Manual) Basophils % (Manual) Seg Neutrophils # Seg Neutrophils # Man Lymphocytes # (Manual) Monocytes # (Manual) Eosinophils # (Manual) Nucleated RBC % Basophils # (Manual) PT INR APTT Heparin Anti-Xa Level 0.24 L ABG pH POC ABG pO2 ABG pO2 ABG HCO3 ABG O2 Saturation ABG Base Excess POC ABG pCO2 ABG Hemoglobin ABG Oxyhemoglobin ABG Chloride ABG Glucose Oxyhemoglobin Sodium Potassium Chloride Carbon Dioxide BUN Creatinine 0.6 L Glucose 162 H POC Glucose Lactic Acid Calcium Phosphorus Magnesium AST 71 H ALT 118 H Lactate Dehydrogenase Total Bilirubin Direct Bilirubin CK-MB (CK-2) C-Reactive Protein NT-Pro-B Natriuret Pep Total Protein 6.2 L Albumin 2.3 L Arterial Blood Glucose Urine WBC (Auto) Urine Creatinine 12/14/19 12/14/19 12/15/19 12:06 18:18 00:19 WBC RBC Hgb Hct MCHC RDW MCV MCH Lymph % (Auto) [place] % (Auto) [place] # Eos # Lymph # (Auto) [place] # (Auto) Eos # (Auto) Seg Neutrophils % Seg Neuts % (Manual) Baso # (Auto) Lymphocytes % (Manual) Monocytes % (Manual) Eosinophils % (Manual) Basophils % (Manual) Seg Neutrophils # Seg Neutrophils # Man Lymphocytes # (Manual) Monocytes # (Manual) Eosinophils # (Manual) Nucleated RBC % Basophils # (Manual) PT INR APTT Heparin Anti-Xa Level ABG pH POC ABG pO2 ABG pO2 ABG HCO3 ABG O2 Saturation ABG Base Excess POC ABG pCO2 ABG Hemoglobin ABG Oxyhemoglobin ABG Chloride ABG Glucose Oxyhemoglobin Sodium Potassium Chloride Carbon Dioxide BUN Creatinine Glucose POC Glucose 147 H 166 H 123 H Lactic Acid Calcium Phosphorus Magnesium AST ALT Lactate Dehydrogenase Total Bilirubin Direct Bilirubin CK-MB (CK-2) C-Reactive Protein NT-Pro-B Natriuret Pep Total Protein Albumin Arterial Blood Glucose Urine WBC (Auto) Urine Creatinine 12/15/19 12/15/19 12/15/19 05:28 05:29 05:29 WBC 14.9 H RBC 3.19 L Hgb 9.1 L Hct 28.7 L MCHC RDW 16.0 H MCV MCH Lymph % (Auto) [place] % (Auto) [place] # Eos # Lymph # (Auto) [place] # (Auto) Eos # (Auto) Seg Neutrophils % Seg Neuts % (Manual) Baso # (Auto) Lymphocytes % (Manual) Monocytes % (Manual) Eosinophils % (Manual) Basophils % (Manual) Seg Neutrophils # Seg Neutrophils # Man Lymphocytes # (Manual) Monocytes # (Manual) Eosinophils # (Manual) Nucleated RBC % Basophils # (Manual) PT INR APTT Heparin Anti-Xa Level 0.19 L ABG pH POC ABG pO2 ABG pO2 ABG HCO3 ABG O2 Saturation ABG Base Excess POC ABG pCO2 ABG Hemoglobin ABG Oxyhemoglobin ABG Chloride ABG Glucose Oxyhemoglobin Sodium Potassium Chloride Carbon Dioxide BUN Creatinine 0.6 L Glucose 110 H POC Glucose Lactic Acid Calcium Phosphorus Magnesium AST ALT Lactate Dehydrogenase Total Bilirubin Direct Bilirubin CK-MB (CK-2) C-Reactive Protein NT-Pro-B Natriuret Pep Total Protein Albumin Arterial Blood Glucose Urine WBC (Auto) Urine Creatinine 12/15/19 12/15/19 12/15/19 05:53 11:50 17:26 WBC RBC Hgb Hct MCHC RDW MCV MCH Lymph % (Auto) [place] % (Auto) [place] # Eos # Lymph # (Auto) [place] # (Auto) Eos # (Auto) Seg Neutrophils % Seg Neuts % (Manual) Baso # (Auto) Lymphocytes % (Manual) Monocytes % (Manual) Eosinophils % (Manual) Basophils % (Manual) Seg Neutrophils # Seg Neutrophils # Man Lymphocytes # (Manual) Monocytes # (Manual) Eosinophils # (Manual) Nucleated RBC % Basophils # (Manual) PT INR APTT Heparin Anti-Xa Level ABG pH POC ABG pO2 ABG pO2 ABG HCO3 ABG O2 Saturation ABG Base Excess POC ABG pCO2 ABG Hemoglobin ABG Oxyhemoglobin ABG Chloride ABG Glucose Oxyhemoglobin Sodium Potassium Chloride Carbon Dioxide BUN Creatinine Glucose POC Glucose 119 H 132 H 128 H Lactic Acid Calcium Phosphorus Magnesium AST ALT Lactate Dehydrogenase Total Bilirubin Direct Bilirubin CK-MB (CK-2) C-Reactive Protein NT-Pro-B Natriuret Pep Total Protein Albumin Arterial Blood Glucose Urine WBC (Auto) Urine Creatinine 12/15/19 12/16/19 12/16/19 23:11 05:30 05:46 WBC RBC Hgb 8.8 L Hct 27.9 L MCHC RDW MCV MCH Lymph % (Auto) [place] % (Auto) [place] # Eos # Lymph # (Auto) [place] # (Auto) Eos # (Auto) Seg Neutrophils % Seg Neuts % (Manual) Baso # (Auto) Lymphocytes % (Manual) Monocytes % (Manual) Eosinophils % (Manual) Basophils % (Manual) Seg Neutrophils # Seg Neutrophils # Man Lymphocytes # (Manual) Monocytes # (Manual) Eosinophils # (Manual) Nucleated RBC % Basophils # (Manual) PT INR APTT Heparin Anti-Xa Level ABG pH POC ABG pO2 ABG pO2 ABG HCO3 ABG O2 Saturation ABG Base Excess POC ABG pCO2 ABG Hemoglobin ABG Oxyhemoglobin ABG Chloride ABG Glucose Oxyhemoglobin Sodium Potassium Chloride Carbon Dioxide BUN Creatinine Glucose POC Glucose 150 H 134 H Lactic Acid Calcium Phosphorus Magnesium AST ALT Lactate Dehydrogenase Total Bilirubin Direct Bilirubin CK-MB (CK-2) C-Reactive Protein NT-Pro-B Natriuret Pep Total Protein Albumin Arterial Blood Glucose Urine WBC (Auto) Urine Creatinine 12/16/19 12/16/19 12/16/19 05:46 05:46 11:44 WBC RBC Hgb Hct MCHC RDW MCV MCH Lymph % (Auto) [place] % (Auto) [place] # Eos # Lymph # (Auto) [place] # (Auto) Eos # (Auto) Seg Neutrophils % Seg Neuts % (Manual) Baso # (Auto) Lymphocytes % (Manual) Monocytes % (Manual) Eosinophils % (Manual) Basophils % (Manual) Seg Neutrophils # Seg Neutrophils # Man Lymphocytes # (Manual) Monocytes # (Manual) Eosinophils # (Manual) Nucleated RBC % Basophils # (Manual) PT INR APTT Heparin Anti-Xa Level 0.20 L ABG pH POC ABG pO2 ABG pO2 ABG HCO3 ABG O2 Saturation ABG Base Excess POC ABG pCO2 ABG Hemoglobin ABG Oxyhemoglobin ABG Chloride ABG Glucose Oxyhemoglobin Sodium Potassium Chloride Carbon Dioxide 31 H BUN Creatinine 0.5 L Glucose 147 H POC Glucose 164 H Lactic Acid Calcium Phosphorus Magnesium AST ALT Lactate Dehydrogenase Total Bilirubin Direct Bilirubin CK-MB (CK-2) C-Reactive Protein NT-Pro-B Natriuret Pep Total Protein Albumin Arterial Blood Glucose Urine WBC (Auto) Urine Creatinine 12/16/19 12/16/19 12/17/19 17:17 23:49 05:30 WBC 13.9 H RBC 3.27 L Hgb 9.4 L Hct 29.2 L MCHC RDW 16.0 H MCV MCH Lymph % (Auto) [place] % (Auto) 8.8 H [place] # Eos # Lymph # (Auto) [place] # (Auto) 1.2 H Eos # (Auto) 0.5 H Seg Neutrophils % 70.5 H Seg Neuts % (Manual) Baso # (Auto) 0.2 H Lymphocytes % (Manual) Monocytes % (Manual) Eosinophils % (Manual) Basophils % (Manual) Seg Neutrophils # 9.8 H Seg Neutrophils # Man Lymphocytes # (Manual) Monocytes # (Manual) Eosinophils # (Manual) Nucleated RBC % Basophils # (Manual) PT INR APTT Heparin Anti-Xa Level ABG pH POC ABG pO2 ABG pO2 ABG HCO3 ABG O2 Saturation ABG Base Excess POC ABG pCO2 ABG Hemoglobin ABG Oxyhemoglobin ABG Chloride ABG Glucose Oxyhemoglobin Sodium Potassium Chloride Carbon Dioxide BUN Creatinine Glucose POC Glucose 162 H 144 H Lactic Acid Calcium Phosphorus Magnesium AST ALT Lactate Dehydrogenase Total Bilirubin Direct Bilirubin CK-MB (CK-2) C-Reactive Protein NT-Pro-B Natriuret Pep Total Protein Albumin Arterial Blood Glucose Urine WBC (Auto) Urine Creatinine 12/17/19 12/17/19 12/17/19 05:30 06:06 11:50 WBC RBC Hgb Hct MCHC RDW MCV MCH Lymph % (Auto) [place] % (Auto) [place] # Eos # Lymph # (Auto) [place] # (Auto) Eos # (Auto) Seg Neutrophils % Seg Neuts % (Manual) Baso # (Auto) Lymphocytes % (Manual) Monocytes % (Manual) Eosinophils % (Manual) Basophils % (Manual) Seg Neutrophils # Seg Neutrophils # Man Lymphocytes # (Manual) Monocytes # (Manual) Eosinophils # (Manual) Nucleated RBC % Basophils # (Manual) PT INR APTT Heparin Anti-Xa Level ABG pH POC ABG pO2 ABG pO2 ABG HCO3 ABG O2 Saturation ABG Base Excess POC ABG pCO2 ABG Hemoglobin ABG Oxyhemoglobin ABG Chloride ABG Glucose Oxyhemoglobin Sodium Potassium Chloride 97.4 L Carbon Dioxide 32 H BUN Creatinine 0.5 L Glucose 135 H POC Glucose 151 H 140 H Lactic Acid Calcium Phosphorus Magnesium AST ALT Lactate Dehydrogenase Total Bilirubin Direct Bilirubin CK-MB (CK-2) C-Reactive Protein NT-Pro-B Natriuret Pep Total Protein Albumin Arterial Blood Glucose Urine WBC (Auto) Urine Creatinine 12/17/19 12/17/19 12/18/19 17:50 23:46 05:17 WBC RBC Hgb 8.8 L Hct 28.0 L MCHC RDW MCV MCH Lymph % (Auto) [place] % (Auto) [place] # Eos # Lymph # (Auto) [place] # (Auto) Eos # (Auto) Seg Neutrophils % Seg Neuts % (Manual) Baso # (Auto) Lymphocytes % (Manual) Monocytes % (Manual) Eosinophils % (Manual) Basophils % (Manual) Seg Neutrophils # Seg Neutrophils # Man Lymphocytes # (Manual) Monocytes # (Manual) Eosinophils # (Manual) Nucleated RBC % Basophils # (Manual) PT INR APTT Heparin Anti-Xa Level ABG pH POC ABG pO2 ABG pO2 ABG HCO3 ABG O2 Saturation ABG Base Excess POC ABG pCO2 ABG Hemoglobin ABG Oxyhemoglobin ABG Chloride ABG Glucose Oxyhemoglobin Sodium Potassium Chloride Carbon Dioxide BUN Creatinine Glucose POC Glucose 158 H 150 H Lactic Acid Calcium Phosphorus Magnesium AST ALT Lactate Dehydrogenase Total Bilirubin Direct Bilirubin CK-MB (CK-2) C-Reactive Protein NT-Pro-B Natriuret Pep Total Protein Albumin Arterial Blood Glucose Urine WBC (Auto) Urine Creatinine 12/18/19 12/18/19 12/18/19 05:17 05:49 11:12 WBC RBC Hgb Hct MCHC RDW MCV MCH Lymph % (Auto) [place] % (Auto) [place] # Eos # Lymph # (Auto) [place] # (Auto) Eos # (Auto) Seg Neutrophils % Seg Neuts % (Manual) Baso # (Auto) Lymphocytes % (Manual) Monocytes % (Manual) Eosinophils % (Manual) Basophils % (Manual) Seg Neutrophils # Seg Neutrophils # Man Lymphocytes # (Manual) Monocytes # (Manual) Eosinophils # (Manual) Nucleated RBC % Basophils # (Manual) PT INR APTT Heparin Anti-Xa Level 0.16 L ABG pH POC ABG pO2 ABG pO2 ABG HCO3 ABG O2 Saturation ABG Base Excess POC ABG pCO2 ABG Hemoglobin ABG Oxyhemoglobin ABG Chloride ABG Glucose Oxyhemoglobin Sodium Potassium Chloride Carbon Dioxide BUN Creatinine Glucose POC Glucose 127 H 191 H Lactic Acid Calcium Phosphorus Magnesium AST ALT Lactate Dehydrogenase Total Bilirubin Direct Bilirubin CK-MB (CK-2) C-Reactive Protein NT-Pro-B Natriuret Pep Total Protein Albumin Arterial Blood Glucose Urine WBC (Auto) Urine Creatinine 12/18/19 12/18/19 12/19/19 17:03 20:16 00:08 WBC RBC Hgb Hct MCHC RDW MCV MCH Lymph % (Auto) [place] % (Auto) [place] # Eos # Lymph # (Auto) [place] # (Auto) Eos # (Auto) Seg Neutrophils % Seg Neuts % (Manual) Baso # (Auto) Lymphocytes % (Manual) Monocytes % (Manual) Eosinophils % (Manual) Basophils % (Manual) Seg Neutrophils # Seg Neutrophils # Man Lymphocytes # (Manual) Monocytes # (Manual) Eosinophils # (Manual) Nucleated RBC % Basophils # (Manual) PT INR APTT Heparin Anti-Xa Level ABG pH POC ABG pO2 ABG pO2 ABG HCO3 ABG O2 Saturation ABG Base Excess POC ABG pCO2 ABG Hemoglobin ABG Oxyhemoglobin ABG Chloride ABG Glucose Oxyhemoglobin Sodium Potassium Chloride Carbon Dioxide BUN Creatinine Glucose POC Glucose 133 H 128 H 129 H Lactic Acid Calcium Phosphorus Magnesium AST ALT Lactate Dehydrogenase Total Bilirubin Direct Bilirubin CK-MB (CK-2) C-Reactive Protein NT-Pro-B Natriuret Pep Total Protein Albumin Arterial Blood Glucose Urine WBC (Auto) Urine Creatinine 12/19/19 12/19/19 12/19/19 04:45 04:45 05:35 WBC RBC Hgb Hct MCHC RDW MCV MCH Lymph % (Auto) [place] % (Auto) [place] # Eos # Lymph # (Auto) [place] # (Auto) Eos # (Auto) Seg Neutrophils % Seg Neuts % (Manual) Baso # (Auto) Lymphocytes % (Manual) Monocytes % (Manual) Eosinophils % (Manual) Basophils % (Manual) Seg Neutrophils # Seg Neutrophils # Man Lymphocytes # (Manual) Monocytes # (Manual) Eosinophils # (Manual) Nucleated RBC % Basophils # (Manual) PT INR APTT Heparin Anti-Xa Level 0.17 L ABG pH POC ABG pO2 ABG pO2 ABG HCO3 ABG O2 Saturation ABG Base Excess POC ABG pCO2 ABG Hemoglobin ABG Oxyhemoglobin ABG Chloride ABG Glucose Oxyhemoglobin Sodium Potassium Chloride Carbon Dioxide BUN Creatinine Glucose POC Glucose 120 H Lactic Acid Calcium Phosphorus Magnesium AST ALT Lactate Dehydrogenase 228 H Total Bilirubin Direct Bilirubin CK-MB (CK-2) C-Reactive Protein NT-Pro-B Natriuret Pep Total Protein Albumin Arterial Blood Glucose Urine WBC (Auto) Urine Creatinine 12/19/19 12/19/19 12/19/19 09:20 11:32 11:32 WBC 14.6 H RBC 3.08 L Hgb 9.0 L Hct 26.8 L MCHC RDW 15.9 H MCV MCH Lymph % (Auto) [place] % (Auto) [place] # Eos # Lymph # (Auto) [place] # (Auto) Eos # (Auto) Seg Neutrophils % Seg Neuts % (Manual) 82.0 H Baso # (Auto) Lymphocytes % (Manual) 10.0 L Monocytes % (Manual) Eosinophils % (Manual) Basophils % (Manual) Seg Neutrophils # Seg Neutrophils # Man 12.0 H Lymphocytes # (Manual) Monocytes # (Manual) 0.9 H Eosinophils # (Manual) Nucleated RBC % 1.0 H Basophils # (Manual) PT INR APTT Heparin Anti-Xa Level ABG pH 7.451 H POC ABG pO2 ABG pO2 62.6 L ABG HCO3 33.2 H ABG O2 Saturation 93.8 L ABG Base Excess 8.3 H POC ABG pCO2 ABG Hemoglobin 8.3 L ABG Oxyhemoglobin ABG Chloride ABG Glucose Oxyhemoglobin 91.9 L Sodium Potassium Chloride 95.0 L Carbon Dioxide 33 H BUN 22 H Creatinine 0.6 L Glucose 150 H POC Glucose Lactic Acid Calcium Phosphorus Magnesium AST ALT Lactate Dehydrogenase Total Bilirubin Direct Bilirubin CK-MB (CK-2) C-Reactive Protein NT-Pro-B Natriuret Pep Total Protein 6.2 L Albumin 2.4 L Arterial Blood Glucose Urine WBC (Auto) Urine Creatinine 12/19/19 12/19/19 12/20/19 11:56 18:17 00:09 WBC RBC Hgb Hct MCHC RDW MCV MCH Lymph % (Auto) [place] % (Auto) [place] # Eos # Lymph # (Auto) [place] # (Auto) Eos # (Auto) Seg Neutrophils % Seg Neuts % (Manual) Baso # (Auto) Lymphocytes % (Manual) Monocytes % (Manual) Eosinophils % (Manual) Basophils % (Manual) Seg Neutrophils # Seg Neutrophils # Man Lymphocytes # (Manual) Monocytes # (Manual) Eosinophils # (Manual) Nucleated RBC % Basophils # (Manual) PT INR APTT Heparin Anti-Xa Level ABG pH POC ABG pO2 ABG pO2 ABG HCO3 ABG O2 Saturation ABG Base Excess POC ABG pCO2 ABG Hemoglobin ABG Oxyhemoglobin ABG Chloride ABG Glucose Oxyhemoglobin Sodium Potassium Chloride Carbon Dioxide BUN Creatinine Glucose POC Glucose 156 H 156 H 155 H Lactic Acid Calcium Phosphorus Magnesium AST ALT Lactate Dehydrogenase Total Bilirubin Direct Bilirubin CK-MB (CK-2) C-Reactive Protein NT-Pro-B Natriuret Pep Total Protein Albumin Arterial Blood Glucose Urine WBC (Auto) Urine Creatinine 12/20/19 12/20/19 12/20/19 05:26 06:02 18:17 WBC RBC Hgb Hct MCHC RDW MCV MCH Lymph % (Auto) [place] % (Auto) [place] # Eos # Lymph # (Auto) [place] # (Auto) Eos # (Auto) Seg Neutrophils % Seg Neuts % (Manual) Baso # (Auto) Lymphocytes % (Manual) Monocytes % (Manual) Eosinophils % (Manual) Basophils % (Manual) Seg Neutrophils # Seg Neutrophils # Man Lymphocytes # (Manual) Monocytes # (Manual) Eosinophils # (Manual) Nucleated RBC % Basophils # (Manual) PT INR APTT Heparin Anti-Xa Level 0.19 L ABG pH POC ABG pO2 ABG pO2 ABG HCO3 ABG O2 Saturation ABG Base Excess POC ABG pCO2 ABG Hemoglobin ABG Oxyhemoglobin ABG Chloride ABG Glucose Oxyhemoglobin Sodium Potassium Chloride Carbon Dioxide BUN Creatinine Glucose POC Glucose 137 H 128 H Lactic Acid Calcium Phosphorus Magnesium AST ALT Lactate Dehydrogenase Total Bilirubin Direct Bilirubin CK-MB (CK-2) C-Reactive Protein NT-Pro-B Natriuret Pep Total Protein Albumin Arterial Blood Glucose Urine WBC (Auto) Urine Creatinine 12/20/19 12/21/19 12/21/19 23:34 05:31 05:31 WBC 12.7 H RBC 3.09 L Hgb 8.9 L Hct 27.4 L MCHC RDW 15.8 H MCV MCH Lymph % (Auto) 12.1 L [place] % (Auto) 7.8 H [place] # Eos # Lymph # (Auto) [place] # (Auto) 1.0 H Eos # (Auto) Seg Neutrophils % 77.1 H Seg Neuts % (Manual) Baso # (Auto) Lymphocytes % (Manual) Monocytes % (Manual) Eosinophils % (Manual) Basophils % (Manual) Seg Neutrophils # 9.8 H Seg Neutrophils # Man Lymphocytes # (Manual) Monocytes # (Manual) Eosinophils # (Manual) Nucleated RBC % Basophils # (Manual) PT INR APTT Heparin Anti-Xa Level ABG pH POC ABG pO2 ABG pO2 ABG HCO3 ABG O2 Saturation ABG Base Excess POC ABG pCO2 ABG Hemoglobin ABG Oxyhemoglobin ABG Chloride ABG Glucose Oxyhemoglobin Sodium Potassium Chloride 96.9 L Carbon Dioxide 37 H BUN 27 H Creatinine 0.7 L Glucose 140 H POC Glucose 145 H Lactic Acid Calcium Phosphorus Magnesium AST ALT Lactate Dehydrogenase Total Bilirubin Direct Bilirubin CK-MB (CK-2) C-Reactive Protein NT-Pro-B Natriuret Pep Total Protein Albumin Arterial Blood Glucose Urine WBC (Auto) Urine Creatinine 12/21/19 12/21/19 12/21/19 05:38 10:13 11:51 WBC RBC Hgb Hct MCHC RDW MCV MCH Lymph % (Auto) [place] % (Auto) [place] # Eos # Lymph # (Auto) [place] # (Auto) Eos # (Auto) Seg Neutrophils % Seg Neuts % (Manual) Baso # (Auto) Lymphocytes % (Manual) Monocytes % (Manual) Eosinophils % (Manual) Basophils % (Manual) Seg Neutrophils # Seg Neutrophils # Man Lymphocytes # (Manual) Monocytes # (Manual) Eosinophils # (Manual) Nucleated RBC % Basophils # (Manual) PT INR APTT 23.9 L Heparin Anti-Xa Level < 0.10 L ABG pH POC ABG pO2 ABG pO2 ABG HCO3 ABG O2 Saturation ABG Base Excess POC ABG pCO2 ABG Hemoglobin ABG Oxyhemoglobin ABG Chloride ABG Glucose Oxyhemoglobin Sodium Potassium Chloride Carbon Dioxide BUN Creatinine Glucose POC Glucose 151 H 145 H Lactic Acid Calcium Phosphorus Magnesium AST ALT Lactate Dehydrogenase Total Bilirubin Direct Bilirubin CK-MB (CK-2) C-Reactive Protein NT-Pro-B Natriuret Pep Total Protein Albumin Arterial Blood Glucose Urine WBC (Auto) Urine Creatinine 12/21/19 12/22/19 12/22/19 17:16 00:01 01:33 WBC RBC Hgb Hct MCHC RDW MCV MCH Lymph % (Auto) [place] % (Auto) [place] # Eos # Lymph # (Auto) [place] # (Auto) Eos # (Auto) Seg Neutrophils % Seg Neuts % (Manual) Baso # (Auto) Lymphocytes % (Manual) Monocytes % (Manual) Eosinophils % (Manual) Basophils % (Manual) Seg Neutrophils # Seg Neutrophils # Man Lymphocytes # (Manual) Monocytes # (Manual) Eosinophils # (Manual) Nucleated RBC % Basophils # (Manual) PT INR APTT Heparin Anti-Xa Level 0.10 L ABG pH POC ABG pO2 ABG pO2 ABG HCO3 ABG O2 Saturation ABG Base Excess POC ABG pCO2 ABG Hemoglobin ABG Oxyhemoglobin ABG Chloride ABG Glucose Oxyhemoglobin Sodium Potassium Chloride Carbon Dioxide BUN Creatinine Glucose POC Glucose 167 H 179 H Lactic Acid Calcium Phosphorus Magnesium AST ALT Lactate Dehydrogenase Total Bilirubin Direct Bilirubin CK-MB (CK-2) C-Reactive Protein NT-Pro-B Natriuret Pep Total Protein Albumin Arterial Blood Glucose Urine WBC (Auto) Urine Creatinine 12/22/19 12/22/19 12/22/19 03:22 05:10 05:10 WBC 13.8 H RBC 3.20 L Hgb 8.9 L Hct 28.1 L MCHC RDW 15.9 H MCV MCH Lymph % (Auto) [place] % (Auto) [place] # Eos # Lymph # (Auto) [place] # (Auto) Eos # (Auto) Seg Neutrophils % Seg Neuts % (Manual) Baso # (Auto) Lymphocytes % (Manual) Monocytes % (Manual) Eosinophils % (Manual) Basophils % (Manual) Seg Neutrophils # Seg Neutrophils # Man Lymphocytes # (Manual) Monocytes # (Manual) Eosinophils # (Manual) Nucleated RBC % Basophils # (Manual) PT INR APTT Heparin Anti-Xa Level ABG pH POC ABG pO2 52.3 L ABG pO2 ABG HCO3 ABG O2 Saturation ABG Base Excess POC ABG pCO2 52.9 H ABG Hemoglobin 10.7 L ABG Oxyhemoglobin 84 L ABG Chloride ABG Glucose Oxyhemoglobin Sodium Potassium Chloride 96.6 L Carbon Dioxide BUN 25 H Creatinine 0.7 L Glucose 129 H POC Glucose Lactic Acid Calcium Phosphorus Magnesium AST ALT Lactate Dehydrogenase Total Bilirubin Direct Bilirubin CK-MB (CK-2) C-Reactive Protein NT-Pro-B Natriuret Pep Total Protein Albumin Arterial Blood Glucose Urine WBC (Auto) Urine Creatinine 12/22/19 12/22/19 12/22/19 05:18 12:32 12:43 WBC RBC Hgb Hct MCHC RDW MCV MCH Lymph % (Auto) [place] % (Auto) [place] # Eos # Lymph # (Auto) [place] # (Auto) Eos # (Auto) Seg Neutrophils % Seg Neuts % (Manual) Baso # (Auto) Lymphocytes % (Manual) Monocytes % (Manual) Eosinophils % (Manual) Basophils % (Manual) Seg Neutrophils # Seg Neutrophils # Man Lymphocytes # (Manual) Monocytes # (Manual) Eosinophils # (Manual) Nucleated RBC % Basophils # (Manual) PT INR APTT Heparin Anti-Xa Level 0.18 L ABG pH POC ABG pO2 ABG pO2 ABG HCO3 ABG O2 Saturation ABG Base Excess POC ABG pCO2 ABG Hemoglobin ABG Oxyhemoglobin ABG Chloride ABG Glucose Oxyhemoglobin Sodium Potassium Chloride Carbon Dioxide BUN Creatinine Glucose POC Glucose 131 H 208 H Lactic Acid Calcium Phosphorus Magnesium AST ALT Lactate Dehydrogenase Total Bilirubin Direct Bilirubin CK-MB (CK-2) C-Reactive Protein NT-Pro-B Natriuret Pep Total Protein Albumin Arterial Blood Glucose Urine WBC (Auto) Urine Creatinine 12/22/19 12/22/19 12/23/19 17:44 23:20 03:51 WBC 15.2 H RBC 3.43 L Hgb 9.6 L Hct 30.3 L MCHC RDW 15.9 H MCV MCH Lymph % (Auto) [place] % (Auto) [place] # Eos # Lymph # (Auto) [place] # (Auto) Eos # (Auto) Seg Neutrophils % Seg Neuts % (Manual) Baso # (Auto) Lymphocytes % (Manual) Monocytes % (Manual) Eosinophils % (Manual) Basophils % (Manual) Seg Neutrophils # Seg Neutrophils # Man Lymphocytes # (Manual) Monocytes # (Manual) Eosinophils # (Manual) Nucleated RBC % Basophils # (Manual) PT INR APTT Heparin Anti-Xa Level ABG pH POC ABG pO2 ABG pO2 ABG HCO3 ABG O2 Saturation ABG Base Excess POC ABG pCO2 ABG Hemoglobin ABG Oxyhemoglobin ABG Chloride ABG Glucose Oxyhemoglobin Sodium Potassium Chloride Carbon Dioxide BUN Creatinine Glucose POC Glucose 209 H 119 H Lactic Acid Calcium Phosphorus Magnesium AST ALT Lactate Dehydrogenase Total Bilirubin Direct Bilirubin CK-MB (CK-2) C-Reactive Protein NT-Pro-B Natriuret Pep Total Protein Albumin Arterial Blood Glucose Urine WBC (Auto) Urine Creatinine 12/23/19 12/23/19 12/23/19 03:51 05:31 12:09 WBC RBC Hgb Hct MCHC RDW MCV MCH Lymph % (Auto) [place] % (Auto) [place] # Eos # Lymph # (Auto) [place] # (Auto) Eos # (Auto) Seg Neutrophils % Seg Neuts % (Manual) Baso # (Auto) Lymphocytes % (Manual) Monocytes % (Manual) Eosinophils % (Manual) Basophils % (Manual) Seg Neutrophils # Seg Neutrophils # Man Lymphocytes # (Manual) Monocytes # (Manual) Eosinophils # (Manual) Nucleated RBC % Basophils # (Manual) PT INR APTT Heparin Anti-Xa Level ABG pH POC ABG pO2 ABG pO2 ABG HCO3 ABG O2 Saturation ABG Base Excess POC ABG pCO2 ABG Hemoglobin ABG Oxyhemoglobin ABG Chloride ABG Glucose Oxyhemoglobin Sodium Potassium Chloride 97.2 L Carbon Dioxide 31 H BUN 23 H Creatinine 0.6 L Glucose 153 H POC Glucose 149 H 144 H Lactic Acid Calcium Phosphorus Magnesium AST ALT Lactate Dehydrogenase Total Bilirubin Direct Bilirubin CK-MB (CK-2) C-Reactive Protein NT-Pro-B Natriuret Pep Total Protein Albumin Arterial Blood Glucose Urine WBC (Auto) Urine Creatinine 12/23/19 12/23/19 12/23/19 15:30 17:49 23:31 WBC RBC Hgb Hct MCHC RDW MCV MCH Lymph % (Auto) [place] % (Auto) [place] # Eos # Lymph # (Auto) [place] # (Auto) Eos # (Auto) Seg Neutrophils % Seg Neuts % (Manual) Baso # (Auto) Lymphocytes % (Manual) Monocytes % (Manual) Eosinophils % (Manual) Basophils % (Manual) Seg Neutrophils # Seg Neutrophils # Man Lymphocytes # (Manual) Monocytes # (Manual) Eosinophils # (Manual) Nucleated RBC % Basophils # (Manual) PT INR APTT Heparin Anti-Xa Level 0.21 L ABG pH POC ABG pO2 ABG pO2 ABG HCO3 ABG O2 Saturation ABG Base Excess POC ABG pCO2 ABG Hemoglobin ABG Oxyhemoglobin ABG Chloride ABG Glucose Oxyhemoglobin Sodium Potassium Chloride Carbon Dioxide BUN Creatinine Glucose POC Glucose 192 H 151 H Lactic Acid Calcium Phosphorus Magnesium AST ALT Lactate Dehydrogenase Total Bilirubin Direct Bilirubin CK-MB (CK-2) C-Reactive Protein NT-Pro-B Natriuret Pep Total Protein Albumin Arterial Blood Glucose Urine WBC (Auto) Urine Creatinine 12/24/19 12/24/19 12/24/19 05:34 12:13 16:50 WBC RBC Hgb Hct MCHC RDW MCV MCH Lymph % (Auto) [place] % (Auto) [place] # Eos # Lymph # (Auto) [place] # (Auto) Eos # (Auto) Seg Neutrophils % Seg Neuts % (Manual) Baso # (Auto) Lymphocytes % (Manual) Monocytes % (Manual) Eosinophils % (Manual) Basophils % (Manual) Seg Neutrophils # Seg Neutrophils # Man Lymphocytes # (Manual) Monocytes # (Manual) Eosinophils # (Manual) Nucleated RBC % Basophils # (Manual) PT INR APTT Heparin Anti-Xa Level 0.16 L ABG pH POC ABG pO2 ABG pO2 ABG HCO3 ABG O2 Saturation ABG Base Excess POC ABG pCO2 ABG Hemoglobin ABG Oxyhemoglobin ABG Chloride ABG Glucose Oxyhemoglobin Sodium Potassium Chloride Carbon Dioxide BUN Creatinine Glucose POC Glucose 145 H 124 H Lactic Acid Calcium Phosphorus Magnesium AST ALT Lactate Dehydrogenase Total Bilirubin Direct Bilirubin CK-MB (CK-2) C-Reactive Protein NT-Pro-B Natriuret Pep Total Protein Albumin Arterial Blood Glucose Urine WBC (Auto) Urine Creatinine 12/24/19 12/25/19 12/25/19 17:53 00:14 04:18 WBC 12.9 H RBC 3.30 L Hgb 9.1 L Hct 28.8 L MCHC RDW 16.4 H MCV MCH Lymph % (Auto) [place] % (Auto) 7.8 H [place] # Eos # Lymph # (Auto) [place] # (Auto) 1.0 H Eos # (Auto) Seg Neutrophils % 75.5 H Seg Neuts % (Manual) Baso # (Auto) Lymphocytes % (Manual) Monocytes % (Manual) Eosinophils % (Manual) Basophils % (Manual) Seg Neutrophils # 9.7 H Seg Neutrophils # Man Lymphocytes # (Manual) Monocytes # (Manual) Eosinophils # (Manual) Nucleated RBC % Basophils # (Manual) PT INR APTT Heparin Anti-Xa Level ABG pH POC ABG pO2 ABG pO2 ABG HCO3 ABG O2 Saturation ABG Base Excess POC ABG pCO2 ABG Hemoglobin ABG Oxyhemoglobin ABG Chloride ABG Glucose Oxyhemoglobin Sodium Potassium Chloride Carbon Dioxide BUN Creatinine Glucose POC Glucose 164 H 148 H Lactic Acid Calcium Phosphorus Magnesium AST ALT Lactate Dehydrogenase Total Bilirubin Direct Bilirubin CK-MB (CK-2) C-Reactive Protein NT-Pro-B Natriuret Pep Total Protein Albumin Arterial Blood Glucose Urine WBC (Auto) Urine Creatinine 12/25/19 12/25/19 12/25/19 04:18 05:38 11:44 WBC RBC Hgb Hct MCHC RDW MCV MCH Lymph % (Auto) [place] % (Auto) [place] # Eos # Lymph # (Auto) [place] # (Auto) Eos # (Auto) Seg Neutrophils % Seg Neuts % (Manual) Baso # (Auto) Lymphocytes % (Manual) Monocytes % (Manual) Eosinophils % (Manual) Basophils % (Manual) Seg Neutrophils # Seg Neutrophils # Man Lymphocytes # (Manual) Monocytes # (Manual) Eosinophils # (Manual) Nucleated RBC % Basophils # (Manual) PT INR APTT Heparin Anti-Xa Level ABG pH POC ABG pO2 ABG pO2 ABG HCO3 ABG O2 Saturation ABG Base Excess POC ABG pCO2 ABG Hemoglobin ABG Oxyhemoglobin ABG Chloride ABG Glucose Oxyhemoglobin Sodium Potassium Chloride Carbon Dioxide 33 H BUN 27 H Creatinine 0.6 L Glucose 132 H POC Glucose 152 H 166 H Lactic Acid Calcium Phosphorus Magnesium AST ALT Lactate Dehydrogenase Total Bilirubin Direct Bilirubin CK-MB (CK-2) C-Reactive Protein NT-Pro-B Natriuret Pep Total Protein Albumin Arterial Blood Glucose Urine WBC (Auto) Urine Creatinine 12/25/19 12/26/19 12/26/19 18:29 00:17 00:18 WBC RBC Hgb Hct MCHC RDW MCV MCH Lymph % (Auto) [place] % (Auto) [place] # Eos # Lymph # (Auto) [place] # (Auto) Eos # (Auto) Seg Neutrophils % Seg Neuts % (Manual) Baso # (Auto) Lymphocytes % (Manual) Monocytes % (Manual) Eosinophils % (Manual) Basophils % (Manual) Seg Neutrophils # Seg Neutrophils # Man Lymphocytes # (Manual) Monocytes # (Manual) Eosinophils # (Manual) Nucleated RBC % Basophils # (Manual) PT INR APTT Heparin Anti-Xa Level ABG pH POC ABG pO2 ABG pO2 ABG HCO3 ABG O2 Saturation ABG Base Excess POC ABG pCO2 ABG Hemoglobin ABG Oxyhemoglobin ABG Chloride ABG Glucose Oxyhemoglobin Sodium Potassium Chloride 97.8 L Carbon Dioxide BUN 25 H Creatinine 0.6 L Glucose 140 H POC Glucose 194 H 151 H Lactic Acid Calcium Phosphorus Magnesium AST ALT Lactate Dehydrogenase Total Bilirubin Direct Bilirubin CK-MB (CK-2) C-Reactive Protein NT-Pro-B Natriuret Pep Total Protein Albumin Arterial Blood Glucose Urine WBC (Auto) Urine Creatinine 12/26/19 12/26/19 12/26/19 05:36 11:41 17:50 WBC RBC Hgb Hct MCHC RDW MCV MCH Lymph % (Auto) [place] % (Auto) [place] # Eos # Lymph # (Auto) [place] # (Auto) Eos # (Auto) Seg Neutrophils % Seg Neuts % (Manual) Baso # (Auto) Lymphocytes % (Manual) Monocytes % (Manual) Eosinophils % (Manual) Basophils % (Manual) Seg Neutrophils # Seg Neutrophils # Man Lymphocytes # (Manual) Monocytes # (Manual) Eosinophils # (Manual) Nucleated RBC % Basophils # (Manual) PT INR APTT Heparin Anti-Xa Level ABG pH POC ABG pO2 ABG pO2 ABG HCO3 ABG O2 Saturation ABG Base Excess POC ABG pCO2 ABG Hemoglobin ABG Oxyhemoglobin ABG Chloride ABG Glucose Oxyhemoglobin Sodium Potassium Chloride Carbon Dioxide BUN Creatinine Glucose POC Glucose 156 H 148 H 139 H Lactic Acid Calcium Phosphorus Magnesium AST ALT Lactate Dehydrogenase Total Bilirubin Direct Bilirubin CK-MB (CK-2) C-Reactive Protein NT-Pro-B Natriuret Pep Total Protein Albumin Arterial Blood Glucose Urine WBC (Auto) Urine Creatinine 12/26/19 12/27/19 12/27/19 23:19 05:34 12:02 WBC RBC Hgb Hct MCHC RDW MCV MCH Lymph % (Auto) [place] % (Auto) [place] # Eos # Lymph # (Auto) [place] # (Auto) Eos # (Auto) Seg Neutrophils % Seg Neuts % (Manual) Baso # (Auto) Lymphocytes % (Manual) Monocytes % (Manual) Eosinophils % (Manual) Basophils % (Manual) Seg Neutrophils # Seg Neutrophils # Man Lymphocytes # (Manual) Monocytes # (Manual) Eosinophils # (Manual) Nucleated RBC % Basophils # (Manual) PT INR APTT Heparin Anti-Xa Level ABG pH POC ABG pO2 ABG pO2 ABG HCO3 ABG O2 Saturation ABG Base Excess POC ABG pCO2 ABG Hemoglobin ABG Oxyhemoglobin ABG Chloride ABG Glucose Oxyhemoglobin Sodium Potassium Chloride Carbon Dioxide BUN Creatinine Glucose POC Glucose 161 H 145 H 157 H Lactic Acid Calcium Phosphorus Magnesium AST ALT Lactate Dehydrogenase Total Bilirubin Direct Bilirubin CK-MB (CK-2) C-Reactive Protein NT-Pro-B Natriuret Pep Total Protein Albumin Arterial Blood Glucose Urine WBC (Auto) Urine Creatinine 12/27/19 12/27/19 12/27/19 17:35 20:11 23:00 WBC RBC Hgb Hct MCHC RDW MCV MCH Lymph % (Auto) [place] % (Auto) [place] # Eos # Lymph # (Auto) [place] # (Auto) Eos # (Auto) Seg Neutrophils % Seg Neuts % (Manual) Baso # (Auto) Lymphocytes % (Manual) Monocytes % (Manual) Eosinophils % (Manual) Basophils % (Manual) Seg Neutrophils # Seg Neutrophils # Man Lymphocytes # (Manual) Monocytes # (Manual) Eosinophils # (Manual) Nucleated RBC % Basophils # (Manual) PT INR APTT Heparin Anti-Xa Level 0.19 L ABG pH POC ABG pO2 ABG pO2 ABG HCO3 ABG O2 Saturation ABG Base Excess POC ABG pCO2 ABG Hemoglobin ABG Oxyhemoglobin ABG Chloride ABG Glucose Oxyhemoglobin Sodium Potassium Chloride Carbon Dioxide BUN Creatinine Glucose POC Glucose 158 H 155 H Lactic Acid Calcium Phosphorus Magnesium AST ALT Lactate Dehydrogenase Total Bilirubin Direct Bilirubin CK-MB (CK-2) C-Reactive Protein NT-Pro-B Natriuret Pep Total Protein Albumin Arterial Blood Glucose Urine WBC (Auto) Urine Creatinine 12/27/19 12/28/19 12/28/19 23:45 02:41 02:41 WBC 13.0 H RBC 3.48 L Hgb 9.5 L Hct 30.6 L MCHC 31 L RDW 16.6 H MCV MCH 27 L Lymph % (Auto) 13.0 L [place] % (Auto) 8.0 H [place] # Eos # Lymph # (Auto) [place] # (Auto) 1.0 H Eos # (Auto) Seg Neutrophils % 76.3 H Seg Neuts % (Manual) Baso # (Auto) Lymphocytes % (Manual) Monocytes % (Manual) Eosinophils % (Manual) Basophils % (Manual) Seg Neutrophils # 9.9 H Seg Neutrophils # Man Lymphocytes # (Manual) Monocytes # (Manual) Eosinophils # (Manual) Nucleated RBC % Basophils # (Manual) PT INR APTT Heparin Anti-Xa Level ABG pH POC ABG pO2 ABG pO2 ABG HCO3 ABG O2 Saturation ABG Base Excess POC ABG pCO2 ABG Hemoglobin ABG Oxyhemoglobin ABG Chloride ABG Glucose Oxyhemoglobin Sodium Potassium Chloride Carbon Dioxide BUN 22 H Creatinine 0.6 L Glucose 101 H POC Glucose 130 H Lactic Acid Calcium Phosphorus Magnesium AST ALT Lactate Dehydrogenase Total Bilirubin Direct Bilirubin CK-MB (CK-2) C-Reactive Protein NT-Pro-B Natriuret Pep Total Protein Albumin Arterial Blood Glucose Urine WBC (Auto) Urine Creatinine 12/28/19 12/28/19 12/28/19 06:00 12:34 18:13 WBC RBC Hgb Hct MCHC RDW MCV MCH Lymph % (Auto) [place] % (Auto) [place] # Eos # Lymph # (Auto) [place] # (Auto) Eos # (Auto) Seg Neutrophils % Seg Neuts % (Manual) Baso # (Auto) Lymphocytes % (Manual) Monocytes % (Manual) Eosinophils % (Manual) Basophils % (Manual) Seg Neutrophils # Seg Neutrophils # Man Lymphocytes # (Manual) Monocytes # (Manual) Eosinophils # (Manual) Nucleated RBC % Basophils # (Manual) PT INR APTT Heparin Anti-Xa Level ABG pH POC ABG pO2 ABG pO2 ABG HCO3 ABG O2 Saturation ABG Base Excess POC ABG pCO2 ABG Hemoglobin ABG Oxyhemoglobin ABG Chloride ABG Glucose Oxyhemoglobin Sodium Potassium Chloride Carbon Dioxide BUN Creatinine Glucose POC Glucose 150 H 161 H 128 H Lactic Acid Calcium Phosphorus Magnesium AST ALT Lactate Dehydrogenase Total Bilirubin Direct Bilirubin CK-MB (CK-2) C-Reactive Protein NT-Pro-B Natriuret Pep Total Protein Albumin Arterial Blood Glucose Urine WBC (Auto) Urine Creatinine 12/28/19 12/29/19 12/29/19 23:36 05:21 11:40 WBC RBC Hgb Hct MCHC RDW MCV MCH Lymph % (Auto) [place] % (Auto) [place] # Eos # Lymph # (Auto) [place] # (Auto) Eos # (Auto) Seg Neutrophils % Seg Neuts % (Manual) Baso # (Auto) Lymphocytes % (Manual) Monocytes % (Manual) Eosinophils % (Manual) Basophils % (Manual) Seg Neutrophils # Seg Neutrophils # Man Lymphocytes # (Manual) Monocytes # (Manual) Eosinophils # (Manual) Nucleated RBC % Basophils # (Manual) PT INR APTT Heparin Anti-Xa Level ABG pH POC ABG pO2 ABG pO2 ABG HCO3 ABG O2 Saturation ABG Base Excess POC ABG pCO2 ABG Hemoglobin ABG Oxyhemoglobin ABG Chloride ABG Glucose Oxyhemoglobin Sodium Potassium Chloride Carbon Dioxide BUN Creatinine Glucose POC Glucose 137 H 136 H 166 H Lactic Acid Calcium Phosphorus Magnesium AST ALT Lactate Dehydrogenase Total Bilirubin Direct Bilirubin CK-MB (CK-2) C-Reactive Protein NT-Pro-B Natriuret Pep Total Protein Albumin Arterial Blood Glucose Urine WBC (Auto) Urine Creatinine 12/29/19 12/29/19 12/29/19 17:23 19:21 23:38 WBC RBC Hgb Hct MCHC RDW MCV MCH Lymph % (Auto) [place] % (Auto) [place] # Eos # Lymph # (Auto) [place] # (Auto) Eos # (Auto) Seg Neutrophils % Seg Neuts % (Manual) Baso # (Auto) Lymphocytes % (Manual) Monocytes % (Manual) Eosinophils % (Manual) Basophils % (Manual) Seg Neutrophils # Seg Neutrophils # Man Lymphocytes # (Manual) Monocytes # (Manual) Eosinophils # (Manual) Nucleated RBC % Basophils # (Manual) PT INR APTT Heparin Anti-Xa Level 0.20 L ABG pH POC ABG pO2 ABG pO2 ABG HCO3 ABG O2 Saturation ABG Base Excess POC ABG pCO2 ABG Hemoglobin ABG Oxyhemoglobin ABG Chloride ABG Glucose Oxyhemoglobin Sodium Potassium Chloride Carbon Dioxide BUN Creatinine Glucose POC Glucose 144 H 141 H Lactic Acid Calcium Phosphorus Magnesium AST ALT Lactate Dehydrogenase Total Bilirubin Direct Bilirubin CK-MB (CK-2) C-Reactive Protein NT-Pro-B Natriuret Pep Total Protein Albumin Arterial Blood Glucose Urine WBC (Auto) Urine Creatinine 12/30/19 12/30/19 12/30/19 03:58 03:58 04:59 WBC RBC 3.54 L Hgb 9.8 L Hct 30.7 L MCHC RDW 16.8 H MCV MCH Lymph % (Auto) [place] % (Auto) [place] # Eos # Lymph # (Auto) [place] # (Auto) Eos # (Auto) Seg Neutrophils % Seg Neuts % (Manual) Baso # (Auto) Lymphocytes % (Manual) Monocytes % (Manual) Eosinophils % (Manual) Basophils % (Manual) Seg Neutrophils # Seg Neutrophils # Man Lymphocytes # (Manual) Monocytes # (Manual) Eosinophils # (Manual) Nucleated RBC % Basophils # (Manual) PT INR APTT Heparin Anti-Xa Level ABG pH POC ABG pO2 ABG pO2 ABG HCO3 29.8 H ABG O2 Saturation ABG Base Excess 4.8 H POC ABG pCO2 ABG Hemoglobin 11.2 L ABG Oxyhemoglobin ABG Chloride ABG Glucose Oxyhemoglobin 93.8 L Sodium Potassium Chloride 97.8 L Carbon Dioxide BUN 26 H Creatinine Glucose 168 H POC Glucose Lactic Acid Calcium Phosphorus Magnesium AST ALT Lactate Dehydrogenase Total Bilirubin Direct Bilirubin CK-MB (CK-2) C-Reactive Protein NT-Pro-B Natriuret Pep Total Protein Albumin Arterial Blood Glucose Urine WBC (Auto) Urine Creatinine 12/30/19 12/30/19 12/30/19 05:45 11:34 17:28 WBC RBC Hgb Hct MCHC RDW MCV MCH Lymph % (Auto) [place] % (Auto) [place] # Eos # Lymph # (Auto) [place] # (Auto) Eos # (Auto) Seg Neutrophils % Seg Neuts % (Manual) Baso # (Auto) Lymphocytes % (Manual) Monocytes % (Manual) Eosinophils % (Manual) Basophils % (Manual) Seg Neutrophils # Seg Neutrophils # Man Lymphocytes # (Manual) Monocytes # (Manual) Eosinophils # (Manual) Nucleated RBC % Basophils # (Manual) PT INR APTT Heparin Anti-Xa Level ABG pH POC ABG pO2 ABG pO2 ABG HCO3 ABG O2 Saturation ABG Base Excess POC ABG pCO2 ABG Hemoglobin ABG Oxyhemoglobin ABG Chloride ABG Glucose Oxyhemoglobin Sodium Potassium Chloride Carbon Dioxide BUN Creatinine Glucose POC Glucose 163 H 180 H 150 H Lactic Acid Calcium Phosphorus Magnesium AST ALT Lactate Dehydrogenase Total Bilirubin Direct Bilirubin CK-MB (CK-2) C-Reactive Protein NT-Pro-B Natriuret Pep Total Protein Albumin Arterial Blood Glucose Urine WBC (Auto) Urine Creatinine 12/30/19 12/31/19 12/31/19 23:43 04:55 05:07 WBC RBC Hgb Hct MCHC RDW MCV MCH Lymph % (Auto) [place] % (Auto) [place] # Eos # Lymph # (Auto) [place] # (Auto) Eos # (Auto) Seg Neutrophils % Seg Neuts % (Manual) Baso # (Auto) Lymphocytes % (Manual) Monocytes % (Manual) Eosinophils % (Manual) Basophils % (Manual) Seg Neutrophils # Seg Neutrophils # Man Lymphocytes # (Manual) Monocytes # (Manual) Eosinophils # (Manual) Nucleated RBC % Basophils # (Manual) PT INR APTT Heparin Anti-Xa Level ABG pH POC ABG pO2 ABG pO2 ABG HCO3 ABG O2 Saturation ABG Base Excess POC ABG pCO2 ABG Hemoglobin ABG Oxyhemoglobin ABG Chloride ABG Glucose Oxyhemoglobin Sodium Potassium 5.6 H D Chloride Carbon Dioxide BUN 33 H Creatinine Glucose 131 H POC Glucose 142 H 134 H Lactic Acid Calcium Phosphorus Magnesium AST ALT Lactate Dehydrogenase Total Bilirubin Direct Bilirubin CK-MB (CK-2) C-Reactive Protein NT-Pro-B Natriuret Pep Total Protein Albumin Arterial Blood Glucose Urine WBC (Auto) Urine Creatinine 12/31/19 12/31/19 12/31/19 11:30 17:19 17:36 WBC RBC Hgb Hct MCHC RDW MCV MCH Lymph % (Auto) [place] % (Auto) [place] # Eos # Lymph # (Auto) [place] # (Auto) Eos # (Auto) Seg Neutrophils % Seg Neuts % (Manual) Baso # (Auto) Lymphocytes % (Manual) Monocytes % (Manual) Eosinophils % (Manual) Basophils % (Manual) Seg Neutrophils # Seg Neutrophils # Man Lymphocytes # (Manual) Monocytes # (Manual) Eosinophils # (Manual) Nucleated RBC % Basophils # (Manual) PT INR APTT Heparin Anti-Xa Level ABG pH POC ABG pO2 ABG pO2 ABG HCO3 ABG O2 Saturation ABG Base Excess POC ABG pCO2 ABG Hemoglobin ABG Oxyhemoglobin ABG Chloride ABG Glucose Oxyhemoglobin Sodium Potassium Chloride Carbon Dioxide BUN 35 H Creatinine Glucose 156 H POC Glucose 158 H 181 H Lactic Acid Calcium Phosphorus Magnesium AST ALT Lactate Dehydrogenase Total Bilirubin Direct Bilirubin CK-MB (CK-2) C-Reactive Protein NT-Pro-B Natriuret Pep Total Protein Albumin Arterial Blood Glucose Urine WBC (Auto) Urine Creatinine 12/31/19 12/31/19 12/31/19 18:16 19:41 21:53 WBC RBC Hgb Hct MCHC RDW MCV MCH Lymph % (Auto) [place] % (Auto) [place] # Eos # Lymph # (Auto) [place] # (Auto) Eos # (Auto) Seg Neutrophils % Seg Neuts % (Manual) Baso # (Auto) Lymphocytes % (Manual) Monocytes % (Manual) Eosinophils % (Manual) Basophils % (Manual) Seg Neutrophils # Seg Neutrophils # Man Lymphocytes # (Manual) Monocytes # (Manual) Eosinophils # (Manual) Nucleated RBC % Basophils # (Manual) PT INR APTT Heparin Anti-Xa Level 0.20 L ABG pH POC ABG pO2 ABG pO2 ABG HCO3 ABG O2 Saturation ABG Base Excess POC ABG pCO2 ABG Hemoglobin ABG Oxyhemoglobin ABG Chloride ABG Glucose Oxyhemoglobin Sodium Potassium Chloride Carbon Dioxide BUN 34 H Creatinine Glucose 169 H POC Glucose 141 H Lactic Acid Calcium Phosphorus Magnesium AST ALT Lactate Dehydrogenase Total Bilirubin Direct Bilirubin CK-MB (CK-2) C-Reactive Protein NT-Pro-B Natriuret Pep Total Protein Albumin Arterial Blood Glucose Urine WBC (Auto) Urine Creatinine 12/31/19 01/01/20 01/01/20 23:51 05:17 10:40 WBC RBC Hgb Hct MCHC RDW MCV MCH Lymph % (Auto) [place] % (Auto) [place] # Eos # Lymph # (Auto) [place] # (Auto) Eos # (Auto) Seg Neutrophils % Seg Neuts % (Manual) Baso # (Auto) Lymphocytes % (Manual) Monocytes % (Manual) Eosinophils % (Manual) Basophils % (Manual) Seg Neutrophils # Seg Neutrophils # Man Lymphocytes # (Manual) Monocytes # (Manual) Eosinophils # (Manual) Nucleated RBC % Basophils # (Manual) PT INR APTT Heparin Anti-Xa Level ABG pH POC ABG pO2 ABG pO2 ABG HCO3 ABG O2 Saturation ABG Base Excess POC ABG pCO2 ABG Hemoglobin ABG Oxyhemoglobin ABG Chloride ABG Glucose Oxyhemoglobin Sodium Potassium Chloride Carbon Dioxide BUN 31 H Creatinine 0.7 L Glucose 137 H POC Glucose 131 H 155 H Lactic Acid Calcium Phosphorus Magnesium AST 73 H ALT 97 H Lactate Dehydrogenase Total Bilirubin Direct Bilirubin CK-MB (CK-2) C-Reactive Protein NT-Pro-B Natriuret Pep 3866 H Total Protein Albumin 2.8 L Arterial Blood Glucose Urine WBC (Auto) Urine Creatinine 01/01/20 01/01/20 01/01/20 12:26 15:33 17:53 WBC 14.3 H RBC 3.35 L Hgb 9.1 L Hct 28.8 L MCHC RDW 17.0 H MCV MCH 27 L Lymph % (Auto) 7.0 L [place] % (Auto) 7.6 H [place] # Eos # Lymph # (Auto) 1.0 L [place] # (Auto) 1.1 H Eos # (Auto) Seg Neutrophils % 83.3 H Seg Neuts % (Manual) Baso # (Auto) Lymphocytes % (Manual) Monocytes % (Manual) Eosinophils % (Manual) Basophils % (Manual) Seg Neutrophils # 12.0 H Seg Neutrophils # Man Lymphocytes # (Manual) Monocytes # (Manual) Eosinophils # (Manual) Nucleated RBC % Basophils # (Manual) PT INR APTT Heparin Anti-Xa Level ABG pH POC ABG pO2 ABG pO2 ABG HCO3 ABG O2 Saturation ABG Base Excess POC ABG pCO2 ABG Hemoglobin ABG Oxyhemoglobin ABG Chloride ABG Glucose Oxyhemoglobin Sodium Potassium Chloride Carbon Dioxide BUN Creatinine Glucose POC Glucose 128 H 128 H Lactic Acid Calcium Phosphorus Magnesium AST ALT Lactate Dehydrogenase Total Bilirubin Direct Bilirubin CK-MB (CK-2) C-Reactive Protein NT-Pro-B Natriuret Pep Total Protein Albumin Arterial Blood Glucose Urine WBC (Auto) Urine Creatinine 01/01/20 01/02/20 01/02/20 23:04 05:39 07:00 WBC RBC Hgb Hct MCHC RDW MCV MCH Lymph % (Auto) [place] % (Auto) [place] # Eos # Lymph # (Auto) [place] # (Auto) Eos # (Auto) Seg Neutrophils % Seg Neuts % (Manual) Baso # (Auto) Lymphocytes % (Manual) Monocytes % (Manual) Eosinophils % (Manual) Basophils % (Manual) Seg Neutrophils # Seg Neutrophils # Man Lymphocytes # (Manual) Monocytes # (Manual) Eosinophils # (Manual) Nucleated RBC % Basophils # (Manual) PT INR APTT Heparin Anti-Xa Level 0.13 L ABG pH POC ABG pO2 ABG pO2 ABG HCO3 ABG O2 Saturation ABG Base Excess POC ABG pCO2 ABG Hemoglobin ABG Oxyhemoglobin ABG Chloride ABG Glucose Oxyhemoglobin Sodium Potassium Chloride Carbon Dioxide BUN Creatinine Glucose POC Glucose 120 H 169 H Lactic Acid Calcium Phosphorus Magnesium AST ALT Lactate Dehydrogenase Total Bilirubin Direct Bilirubin CK-MB (CK-2) C-Reactive Protein NT-Pro-B Natriuret Pep Total Protein Albumin Arterial Blood Glucose Urine WBC (Auto) Urine Creatinine 01/02/20 01/02/20 01/02/20 12:15 14:06 17:58 WBC RBC Hgb Hct MCHC RDW MCV MCH Lymph % (Auto) [place] % (Auto) [place] # Eos # Lymph # (Auto) [place] # (Auto) Eos # (Auto) Seg Neutrophils % Seg Neuts % (Manual) Baso # (Auto) Lymphocytes % (Manual) Monocytes % (Manual) Eosinophils % (Manual) Basophils % (Manual) Seg Neutrophils # Seg Neutrophils # Man Lymphocytes # (Manual) Monocytes # (Manual) Eosinophils # (Manual) Nucleated RBC % Basophils # (Manual) PT INR APTT Heparin Anti-Xa Level < 0.10 L ABG pH POC ABG pO2 ABG pO2 ABG HCO3 ABG O2 Saturation ABG Base Excess POC ABG pCO2 ABG Hemoglobin ABG Oxyhemoglobin ABG Chloride ABG Glucose Oxyhemoglobin Sodium Potassium Chloride Carbon Dioxide BUN Creatinine Glucose POC Glucose 190 H 198 H Lactic Acid Calcium Phosphorus Magnesium AST ALT Lactate Dehydrogenase Total Bilirubin Direct Bilirubin CK-MB (CK-2) C-Reactive Protein NT-Pro-B Natriuret Pep Total Protein Albumin Arterial Blood Glucose Urine WBC (Auto) Urine Creatinine 01/02/20 01/02/20 01/03/20 21:43 23:33 05:42 WBC RBC Hgb Hct MCHC RDW MCV MCH Lymph % (Auto) [place] % (Auto) [place] # Eos # Lymph # (Auto) [place] # (Auto) Eos # (Auto) Seg Neutrophils % Seg Neuts % (Manual) Baso # (Auto) Lymphocytes % (Manual) Monocytes % (Manual) Eosinophils % (Manual) Basophils % (Manual) Seg Neutrophils # Seg Neutrophils # Man Lymphocytes # (Manual) Monocytes # (Manual) Eosinophils # (Manual) Nucleated RBC % Basophils # (Manual) PT INR APTT Heparin Anti-Xa Level 0.10 L ABG pH POC ABG pO2 ABG pO2 ABG HCO3 ABG O2 Saturation ABG Base Excess POC ABG pCO2 ABG Hemoglobin ABG Oxyhemoglobin ABG Chloride ABG Glucose Oxyhemoglobin Sodium Potassium Chloride Carbon Dioxide BUN Creatinine Glucose POC Glucose 180 H 163 H Lactic Acid Calcium Phosphorus Magnesium AST ALT Lactate Dehydrogenase Total Bilirubin Direct Bilirubin CK-MB (CK-2) C-Reactive Protein NT-Pro-B Natriuret Pep Total Protein Albumin Arterial Blood Glucose Urine WBC (Auto) Urine Creatinine 01/03/20 01/03/20 01/03/20 06:50 07:25 07:45 WBC 12.1 H RBC 3.35 L Hgb 9.0 L Hct 28.9 L MCHC 31 L RDW 16.6 H MCV MCH 27 L Lymph % (Auto) 13.0 L [place] % (Auto) 8.6 H [place] # Eos # Lymph # (Auto) [place] # (Auto) 1.0 H Eos # (Auto) Seg Neutrophils % 75.9 H Seg Neuts % (Manual) Baso # (Auto) Lymphocytes % (Manual) Monocytes % (Manual) Eosinophils % (Manual) Basophils % (Manual) Seg Neutrophils # 9.2 H Seg Neutrophils # Man Lymphocytes # (Manual) Monocytes # (Manual) Eosinophils # (Manual) Nucleated RBC % Basophils # (Manual) PT INR APTT Heparin Anti-Xa Level 0.29 L ABG pH POC ABG pO2 ABG pO2 ABG HCO3 ABG O2 Saturation ABG Base Excess POC ABG pCO2 ABG Hemoglobin ABG Oxyhemoglobin ABG Chloride ABG Glucose Oxyhemoglobin Sodium Potassium 3.3 L D Chloride Carbon Dioxide 35 H D BUN 23 H Creatinine 0.6 L Glucose 149 H POC Glucose Lactic Acid Calcium Phosphorus Magnesium AST ALT 88 H Lactate Dehydrogenase Total Bilirubin Direct Bilirubin CK-MB (CK-2) C-Reactive Protein NT-Pro-B Natriuret Pep Total Protein 6.2 L Albumin 2.9 L Arterial Blood Glucose Urine WBC (Auto) Urine Creatinine 01/03/20 01/03/20 01/03/20 12:05 17:42 18:30 WBC RBC Hgb Hct MCHC RDW MCV MCH Lymph % (Auto) [place] % (Auto) [place] # Eos # Lymph # (Auto) [place] # (Auto) Eos # (Auto) Seg Neutrophils % Seg Neuts % (Manual) Baso # (Auto) Lymphocytes % (Manual) Monocytes % (Manual) Eosinophils % (Manual) Basophils % (Manual) Seg Neutrophils # Seg Neutrophils # Man Lymphocytes # (Manual) Monocytes # (Manual) Eosinophils # (Manual) Nucleated RBC % Basophils # (Manual) PT INR APTT Heparin Anti-Xa Level ABG pH POC ABG pO2 ABG pO2 70.7 L ABG HCO3 36.1 H ABG O2 Saturation 94.4 L ABG Base Excess 10.0 H POC ABG pCO2 ABG Hemoglobin 9.7 L ABG Oxyhemoglobin ABG Chloride ABG Glucose Oxyhemoglobin 91.8 L Sodium Potassium Chloride Carbon Dioxide BUN Creatinine Glucose POC Glucose 128 H 132 H Lactic Acid Calcium Phosphorus Magnesium AST ALT Lactate Dehydrogenase Total Bilirubin Direct Bilirubin CK-MB (CK-2) C-Reactive Protein NT-Pro-B Natriuret Pep Total Protein Albumin Arterial Blood Glucose Urine WBC (Auto) Urine Creatinine 01/04/20 01/04/20 01/04/20 00:10 04:26 05:23 WBC RBC Hgb Hct MCHC RDW MCV MCH Lymph % (Auto) [place] % (Auto) [place] # Eos # Lymph # (Auto) [place] # (Auto) Eos # (Auto) Seg Neutrophils % Seg Neuts % (Manual) Baso # (Auto) Lymphocytes % (Manual) Monocytes % (Manual) Eosinophils % (Manual) Basophils % (Manual) Seg Neutrophils # Seg Neutrophils # Man Lymphocytes # (Manual) Monocytes # (Manual) Eosinophils # (Manual) Nucleated RBC % Basophils # (Manual) PT INR APTT Heparin Anti-Xa Level 0.16 L ABG pH POC ABG pO2 ABG pO2 ABG HCO3 ABG O2 Saturation ABG Base Excess POC ABG pCO2 ABG Hemoglobin ABG Oxyhemoglobin ABG Chloride ABG Glucose Oxyhemoglobin Sodium Potassium Chloride Carbon Dioxide BUN Creatinine Glucose POC Glucose 121 H 119 H Lactic Acid Calcium Phosphorus Magnesium AST ALT Lactate Dehydrogenase Total Bilirubin Direct Bilirubin CK-MB (CK-2) C-Reactive Protein NT-Pro-B Natriuret Pep Total Protein Albumin Arterial Blood Glucose Urine WBC (Auto) Urine Creatinine 01/04/20 01/04/20 01/04/20 09:50 09:50 12:18 WBC 15.4 H RBC 3.30 L Hgb 8.7 L Hct 28.2 L MCHC 31 L RDW 17.0 H MCV MCH 26 L Lymph % (Auto) [place] % (Auto) 7.6 H [place] # Eos # Lymph # (Auto) [place] # (Auto) 1.2 H Eos # (Auto) Seg Neutrophils % 75.4 H Seg Neuts % (Manual) Baso # (Auto) Lymphocytes % (Manual) Monocytes % (Manual) Eosinophils % (Manual) Basophils % (Manual) Seg Neutrophils # 11.6 H Seg Neutrophils # Man Lymphocytes # (Manual) Monocytes # (Manual) Eosinophils # (Manual) Nucleated RBC % Basophils # (Manual) PT INR APTT Heparin Anti-Xa Level ABG pH POC ABG pO2 ABG pO2 ABG HCO3 ABG O2 Saturation ABG Base Excess POC ABG pCO2 ABG Hemoglobin ABG Oxyhemoglobin ABG Chloride ABG Glucose Oxyhemoglobin Sodium 148 H Potassium 3.5 L Chloride Carbon Dioxide 32 H BUN Creatinine 0.6 L Glucose 114 H POC Glucose 111 H Lactic Acid Calcium Phosphorus Magnesium AST ALT 59 H Lactate Dehydrogenase Total Bilirubin Direct Bilirubin CK-MB (CK-2) C-Reactive Protein NT-Pro-B Natriuret Pep Total Protein Albumin 2.6 L Arterial Blood Glucose Urine WBC (Auto) Urine Creatinine 01/05/20 01/05/20 01/05/20 04:05 04:05 05:19 WBC 11.7 H RBC 3.50 L Hgb 9.3 L Hct 29.9 L MCHC 31 L RDW 16.6 H MCV MCH 27 L Lymph % (Auto) 13.1 L [place] % (Auto) 9.7 H [place] # Eos # Lymph # (Auto) [place] # (Auto) 1.1 H Eos # (Auto) Seg Neutrophils % 74.0 H Seg Neuts % (Manual) Baso # (Auto) Lymphocytes % (Manual) Monocytes % (Manual) Eosinophils % (Manual) Basophils % (Manual) Seg Neutrophils # 8.6 H Seg Neutrophils # Man Lymphocytes # (Manual) Monocytes # (Manual) Eosinophils # (Manual) Nucleated RBC % Basophils # (Manual) PT INR APTT Heparin Anti-Xa Level ABG pH POC ABG pO2 ABG pO2 ABG HCO3 ABG O2 Saturation ABG Base Excess POC ABG pCO2 ABG Hemoglobin ABG Oxyhemoglobin ABG Chloride ABG Glucose Oxyhemoglobin Sodium 151 H Potassium Chloride Carbon Dioxide 34 H BUN Creatinine 0.7 L Glucose POC Glucose 112 H Lactic Acid Calcium Phosphorus Magnesium AST ALT 59 H Lactate Dehydrogenase Total Bilirubin Direct Bilirubin CK-MB (CK-2) C-Reactive Protein NT-Pro-B Natriuret Pep Total Protein 5.8 L Albumin 2.6 L Arterial Blood Glucose Urine WBC (Auto) Urine Creatinine 01/05/20 01/06/20 01/06/20 16:04 00:23 04:44 WBC RBC 3.36 L Hgb 8.9 L Hct 28.7 L MCHC 31 L RDW 16.9 H MCV MCH 26 L Lymph % (Auto) [place] % (Auto) 9.4 H [place] # Eos # Lymph # (Auto) [place] # (Auto) Eos # (Auto) Seg Neutrophils % Seg Neuts % (Manual) Baso # (Auto) Lymphocytes % (Manual) Monocytes % (Manual) Eosinophils % (Manual) Basophils % (Manual) Seg Neutrophils # Seg Neutrophils # Man Lymphocytes # (Manual) Monocytes # (Manual) Eosinophils # (Manual) Nucleated RBC % Basophils # (Manual) PT INR APTT Heparin Anti-Xa Level ABG pH POC ABG pO2 ABG pO2 ABG HCO3 ABG O2 Saturation ABG Base Excess POC ABG pCO2 ABG Hemoglobin ABG Oxyhemoglobin ABG Chloride ABG Glucose Oxyhemoglobin Sodium 151 H Potassium 3.2 L Chloride Carbon Dioxide 34 H BUN Creatinine 0.6 L Glucose POC Glucose 107 H Lactic Acid Calcium Phosphorus Magnesium AST ALT Lactate Dehydrogenase Total Bilirubin Direct Bilirubin CK-MB (CK-2) C-Reactive Protein NT-Pro-B Natriuret Pep Total Protein Albumin Arterial Blood Glucose Urine WBC (Auto) Urine Creatinine 01/06/20 01/06/20 01/06/20 04:44 05:33 12:04 WBC RBC Hgb Hct MCHC RDW MCV MCH Lymph % (Auto) [place] % (Auto) [place] # Eos # Lymph # (Auto) [place] # (Auto) Eos # (Auto) Seg Neutrophils % Seg Neuts % (Manual) Baso # (Auto) Lymphocytes % (Manual) Monocytes % (Manual) Eosinophils % (Manual) Basophils % (Manual) Seg Neutrophils # Seg Neutrophils # Man Lymphocytes # (Manual) Monocytes # (Manual) Eosinophils # (Manual) Nucleated RBC % Basophils # (Manual) PT INR APTT Heparin Anti-Xa Level ABG pH POC ABG pO2 ABG pO2 ABG HCO3 ABG O2 Saturation ABG Base Excess POC ABG pCO2 ABG Hemoglobin ABG Oxyhemoglobin ABG Chloride ABG Glucose Oxyhemoglobin Sodium 151 H Potassium 3.4 L Chloride Carbon Dioxide 33 H BUN Creatinine 0.6 L Glucose 118 H POC Glucose 118 H 123 H Lactic Acid Calcium Phosphorus Magnesium AST ALT Lactate Dehydrogenase Total Bilirubin Direct Bilirubin CK-MB (CK-2) C-Reactive Protein NT-Pro-B Natriuret Pep Total Protein 6.2 L Albumin 2.6 L Arterial Blood Glucose Urine WBC (Auto) Urine Creatinine 01/06/20 01/07/20 01/07/20 17:54 00:06 04:10 WBC RBC 3.42 L Hgb 8.9 L Hct 29.0 L MCHC 31 L RDW 17.1 H MCV MCH 26 L Lymph % (Auto) [place] % (Auto) 8.4 H [place] # Eos # Lymph # (Auto) [place] # (Auto) Eos # (Auto) Seg Neutrophils % Seg Neuts % (Manual) Baso # (Auto) Lymphocytes % (Manual) Monocytes % (Manual) Eosinophils % (Manual) Basophils % (Manual) Seg Neutrophils # Seg Neutrophils # Man Lymphocytes # (Manual) Monocytes # (Manual) Eosinophils # (Manual) Nucleated RBC % Basophils # (Manual) PT INR APTT Heparin Anti-Xa Level ABG pH POC ABG pO2 ABG pO2 ABG HCO3 ABG O2 Saturation ABG Base Excess POC ABG pCO2 ABG Hemoglobin ABG Oxyhemoglobin ABG Chloride ABG Glucose Oxyhemoglobin Sodium Potassium Chloride Carbon Dioxide BUN Creatinine Glucose POC Glucose 112 H 126 H Lactic Acid Calcium Phosphorus Magnesium AST ALT Lactate Dehydrogenase Total Bilirubin Direct Bilirubin CK-MB (CK-2) C-Reactive Protein NT-Pro-B Natriuret Pep Total Protein Albumin Arterial Blood Glucose Urine WBC (Auto) Urine Creatinine 01/07/20 01/07/20 01/07/20 04:10 05:59 12:27 WBC RBC Hgb Hct MCHC RDW MCV MCH Lymph % (Auto) [place] % (Auto) [place] # Eos # Lymph # (Auto) [place] # (Auto) Eos # (Auto) Seg Neutrophils % Seg Neuts % (Manual) Baso # (Auto) Lymphocytes % (Manual) Monocytes % (Manual) Eosinophils % (Manual) Basophils % (Manual) Seg Neutrophils # Seg Neutrophils # Man Lymphocytes # (Manual) Monocytes # (Manual) Eosinophils # (Manual) Nucleated RBC % Basophils # (Manual) PT INR APTT Heparin Anti-Xa Level ABG pH POC ABG pO2 ABG pO2 ABG HCO3 ABG O2 Saturation ABG Base Excess POC ABG pCO2 ABG Hemoglobin ABG Oxyhemoglobin ABG Chloride ABG Glucose Oxyhemoglobin Sodium 153 H Potassium 3.5 L Chloride Carbon Dioxide 34 H BUN Creatinine 0.6 L Glucose 121 H POC Glucose 121 H 126 H Lactic Acid Calcium Phosphorus Magnesium AST ALT Lactate Dehydrogenase Total Bilirubin Direct Bilirubin CK-MB (CK-2) C-Reactive Protein NT-Pro-B Natriuret Pep Total Protein 5.9 L Albumin 2.4 L Arterial Blood Glucose Urine WBC (Auto) Urine Creatinine 01/07/20 01/08/20 01/08/20 18:12 00:03 05:41 WBC RBC Hgb Hct MCHC RDW MCV MCH Lymph % (Auto) [place] % (Auto) [place] # Eos # Lymph # (Auto) [place] # (Auto) Eos # (Auto) Seg Neutrophils % Seg Neuts % (Manual) Baso # (Auto) Lymphocytes % (Manual) Monocytes % (Manual) Eosinophils % (Manual) Basophils % (Manual) Seg Neutrophils # Seg Neutrophils # Man Lymphocytes # (Manual) Monocytes # (Manual) Eosinophils # (Manual) Nucleated RBC % Basophils # (Manual) PT INR APTT Heparin Anti-Xa Level ABG pH POC ABG pO2 ABG pO2 ABG HCO3 ABG O2 Saturation ABG Base Excess POC ABG pCO2 ABG Hemoglobin ABG Oxyhemoglobin ABG Chloride ABG Glucose Oxyhemoglobin Sodium Potassium Chloride Carbon Dioxide BUN Creatinine Glucose POC Glucose 124 H 130 H 138 H Lactic Acid Calcium Phosphorus Magnesium AST ALT Lactate Dehydrogenase Total Bilirubin Direct Bilirubin CK-MB (CK-2) C-Reactive Protein NT-Pro-B Natriuret Pep Total Protein Albumin Arterial Blood Glucose Urine WBC (Auto) Urine Creatinine 01/08/20 01/08/20 01/08/20 09:28 11:42 18:21 WBC RBC Hgb Hct MCHC RDW MCV MCH Lymph % (Auto) [place] % (Auto) [place] # Eos # Lymph # (Auto) [place] # (Auto) Eos # (Auto) Seg Neutrophils % Seg Neuts % (Manual) Baso # (Auto) Lymphocytes % (Manual) Monocytes % (Manual) Eosinophils % (Manual) Basophils % (Manual) Seg Neutrophils # Seg Neutrophils # Man Lymphocytes # (Manual) Monocytes # (Manual) Eosinophils # (Manual) Nucleated RBC % Basophils # (Manual) PT INR APTT Heparin Anti-Xa Level ABG pH POC ABG pO2 ABG pO2 ABG HCO3 ABG O2 Saturation ABG Base Excess POC ABG pCO2 ABG Hemoglobin ABG Oxyhemoglobin ABG Chloride ABG Glucose Oxyhemoglobin Sodium Potassium Chloride Carbon Dioxide BUN Creatinine Glucose POC Glucose 181 H 150 H 129 H Lactic Acid Calcium Phosphorus Magnesium AST ALT Lactate Dehydrogenase Total Bilirubin Direct Bilirubin CK-MB (CK-2) C-Reactive Protein NT-Pro-B Natriuret Pep Total Protein Albumin Arterial Blood Glucose Urine WBC (Auto) Urine Creatinine 01/08/20 01/08/20 01/09/20 19:25 23:55 04:11 WBC RBC 3.43 L Hgb 8.9 L Hct 28.7 L MCHC 31 L RDW 17.6 H MCV MCH 26 L Lymph % (Auto) [place] % (Auto) 8.6 H [place] # Eos # Lymph # (Auto) [place] # (Auto) Eos # (Auto) Seg Neutrophils % Seg Neuts % (Manual) Baso # (Auto) Lymphocytes % (Manual) Monocytes % (Manual) Eosinophils % (Manual) Basophils % (Manual) Seg Neutrophils # Seg Neutrophils # Man Lymphocytes # (Manual) Monocytes # (Manual) Eosinophils # (Manual) Nucleated RBC % Basophils # (Manual) PT INR APTT Heparin Anti-Xa Level ABG pH POC ABG pO2 ABG pO2 ABG HCO3 ABG O2 Saturation ABG Base Excess POC ABG pCO2 ABG Hemoglobin ABG Oxyhemoglobin ABG Chloride ABG Glucose Oxyhemoglobin Sodium Potassium Chloride Carbon Dioxide BUN Creatinine 0.7 L Glucose 117 H POC Glucose 132 H Lactic Acid Calcium Phosphorus Magnesium AST ALT Lactate Dehydrogenase Total Bilirubin Direct Bilirubin CK-MB (CK-2) C-Reactive Protein NT-Pro-B Natriuret Pep Total Protein Albumin Arterial Blood Glucose Urine WBC (Auto) Urine Creatinine 01/09/20 01/09/20 01/09/20 04:11 05:38 22:58 WBC RBC Hgb Hct MCHC RDW MCV MCH Lymph % (Auto) [place] % (Auto) [place] # Eos # Lymph # (Auto) [place] # (Auto) Eos # (Auto) Seg Neutrophils % Seg Neuts % (Manual) Baso # (Auto) Lymphocytes % (Manual) Monocytes % (Manual) Eosinophils % (Manual) Basophils % (Manual) Seg Neutrophils # Seg Neutrophils # Man Lymphocytes # (Manual) Monocytes # (Manual) Eosinophils # (Manual) Nucleated RBC % Basophils # (Manual) PT INR APTT Heparin Anti-Xa Level ABG pH POC ABG pO2 ABG pO2 ABG HCO3 ABG O2 Saturation ABG Base Excess POC ABG pCO2 ABG Hemoglobin ABG Oxyhemoglobin ABG Chloride ABG Glucose Oxyhemoglobin Sodium 147 H Potassium 3.3 L D Chloride Carbon Dioxide 32 H BUN Creatinine 0.6 L Glucose 106 H POC Glucose 107 H 113 H Lactic Acid Calcium Phosphorus Magnesium AST ALT Lactate Dehydrogenase Total Bilirubin Direct Bilirubin CK-MB (CK-2) C-Reactive Protein NT-Pro-B Natriuret Pep Total Protein Albumin Arterial Blood Glucose Urine WBC (Auto) Urine Creatinine 01/10/20 01/10/20 01/10/20 04:05 11:36 17:54 WBC RBC Hgb Hct MCHC RDW MCV MCH Lymph % (Auto) [place] % (Auto) [place] # Eos # Lymph # (Auto) [place] # (Auto) Eos # (Auto) Seg Neutrophils % Seg Neuts % (Manual) Baso # (Auto) Lymphocytes % (Manual) Monocytes % (Manual) Eosinophils % (Manual) Basophils % (Manual) Seg Neutrophils # Seg Neutrophils # Man Lymphocytes # (Manual) Monocytes # (Manual) Eosinophils # (Manual) Nucleated RBC % Basophils # (Manual) PT INR APTT Heparin Anti-Xa Level ABG pH POC ABG pO2 ABG pO2 ABG HCO3 ABG O2 Saturation ABG Base Excess POC ABG pCO2 ABG Hemoglobin ABG Oxyhemoglobin ABG Chloride ABG Glucose Oxyhemoglobin Sodium Potassium Chloride Carbon Dioxide BUN Creatinine 0.7 L Glucose 110 H POC Glucose 129 H 117 H Lactic Acid Calcium Phosphorus Magnesium AST ALT Lactate Dehydrogenase Total Bilirubin Direct Bilirubin CK-MB (CK-2) C-Reactive Protein NT-Pro-B Natriuret Pep Total Protein Albumin Arterial Blood Glucose Urine WBC (Auto) Urine Creatinine 01/10/20 01/11/20 01/11/20 23:52 03:19 12:09 WBC RBC Hgb Hct MCHC RDW MCV MCH Lymph % (Auto) [place] % (Auto) [place] # Eos # Lymph # (Auto) [place] # (Auto) Eos # (Auto) Seg Neutrophils % Seg Neuts % (Manual) Baso # (Auto) Lymphocytes % (Manual) Monocytes % (Manual) Eosinophils % (Manual) Basophils % (Manual) Seg Neutrophils # Seg Neutrophils # Man Lymphocytes # (Manual) Monocytes # (Manual) Eosinophils # (Manual) Nucleated RBC % Basophils # (Manual) PT INR APTT Heparin Anti-Xa Level ABG pH POC ABG pO2 ABG pO2 ABG HCO3 ABG O2 Saturation ABG Base Excess POC ABG pCO2 ABG Hemoglobin ABG Oxyhemoglobin ABG Chloride ABG Glucose Oxyhemoglobin Sodium Potassium Chloride Carbon Dioxide BUN Creatinine Glucose POC Glucose 117 H 136 H 115 H Lactic Acid Calcium Phosphorus Magnesium AST ALT Lactate Dehydrogenase Total Bilirubin Direct Bilirubin CK-MB (CK-2) C-Reactive Protein NT-Pro-B Natriuret Pep Total Protein Albumin Arterial Blood Glucose Urine WBC (Auto) Urine Creatinine 01/11/20 01/11/20 01/12/20 18:27 23:28 00:23 WBC RBC Hgb 9.8 L Hct 31.6 L MCHC 31 L RDW 17.8 H MCV 83 L MCH 26 L Lymph % (Auto) [place] % (Auto) 8.0 H [place] # Eos # Lymph # (Auto) [place] # (Auto) Eos # (Auto) Seg Neutrophils % Seg Neuts % (Manual) Baso # (Auto) Lymphocytes % (Manual) Monocytes % (Manual) Eosinophils % (Manual) Basophils % (Manual) Seg Neutrophils # Seg Neutrophils # Man Lymphocytes # (Manual) Monocytes # (Manual) Eosinophils # (Manual) Nucleated RBC % Basophils # (Manual) PT INR APTT Heparin Anti-Xa Level ABG pH POC ABG pO2 ABG pO2 ABG HCO3 ABG O2 Saturation ABG Base Excess POC ABG pCO2 ABG Hemoglobin ABG Oxyhemoglobin ABG Chloride ABG Glucose Oxyhemoglobin Sodium Potassium Chloride Carbon Dioxide BUN Creatinine Glucose POC Glucose 118 H 122 H Lactic Acid Calcium Phosphorus Magnesium AST ALT Lactate Dehydrogenase Total Bilirubin Direct Bilirubin CK-MB (CK-2) C-Reactive Protein NT-Pro-B Natriuret Pep Total Protein Albumin Arterial Blood Glucose Urine WBC (Auto) Urine Creatinine 01/12/20 01/12/20 01/12/20 00:23 04:18 04:18 WBC RBC Hgb 9.6 L Hct 30.9 L MCHC 31 L RDW 17.3 H MCV 81 L MCH 25 L Lymph % (Auto) [place] % (Auto) [place] # Eos # Lymph # (Auto) [place] # (Auto) Eos # (Auto) Seg Neutrophils % Seg Neuts % (Manual) Baso # (Auto) Lymphocytes % (Manual) Monocytes % (Manual) Eosinophils % (Manual) Basophils % (Manual) Seg Neutrophils # Seg Neutrophils # Man Lymphocytes # (Manual) Monocytes # (Manual) Eosinophils # (Manual) Nucleated RBC % Basophils # (Manual) PT INR APTT Heparin Anti-Xa Level ABG pH POC ABG pO2 ABG pO2 ABG HCO3 ABG O2 Saturation ABG Base Excess POC ABG pCO2 ABG Hemoglobin ABG Oxyhemoglobin ABG Chloride ABG Glucose Oxyhemoglobin Sodium Potassium Chloride Carbon Dioxide BUN Creatinine 0.7 L 0.7 L Glucose 111 H 108 H POC Glucose Lactic Acid Calcium Phosphorus Magnesium AST ALT Lactate Dehydrogenase Total Bilirubin Direct Bilirubin CK-MB (CK-2) C-Reactive Protein NT-Pro-B Natriuret Pep Total Protein Albumin 2.6 L Arterial Blood Glucose Urine WBC (Auto) Urine Creatinine 01/12/20 01/12/20 01/12/20 06:03 12:27 13:58 WBC RBC Hgb Hct MCHC RDW MCV MCH Lymph % (Auto) [place] % (Auto) [place] # Eos # Lymph # (Auto) [place] # (Auto) Eos # (Auto) Seg Neutrophils % Seg Neuts % (Manual) Baso # (Auto) Lymphocytes % (Manual) Monocytes % (Manual) Eosinophils % (Manual) Basophils % (Manual) Seg Neutrophils # Seg Neutrophils # Man Lymphocytes # (Manual) Monocytes # (Manual) Eosinophils # (Manual) Nucleated RBC % Basophils # (Manual) PT INR APTT Heparin Anti-Xa Level ABG pH 7.453 H POC ABG pO2 76.6 L ABG pO2 ABG HCO3 ABG O2 Saturation ABG Base Excess POC ABG pCO2 ABG Hemoglobin 10.3 L ABG Oxyhemoglobin ABG Chloride ABG Glucose 99 H Oxyhemoglobin Sodium Potassium Chloride Carbon Dioxide BUN Creatinine Glucose POC Glucose 128 H 121 H Lactic Acid Calcium Phosphorus Magnesium AST ALT Lactate Dehydrogenase Total Bilirubin Direct Bilirubin CK-MB (CK-2) C-Reactive Protein NT-Pro-B Natriuret Pep Total Protein Albumin Arterial Blood Glucose 99 H Urine WBC (Auto) Urine Creatinine 01/12/20 01/13/20 01/13/20 18:24 12:01 17:46 WBC RBC Hgb Hct MCHC RDW MCV MCH Lymph % (Auto) [place] % (Auto) [place] # Eos # Lymph # (Auto) [place] # (Auto) Eos # (Auto) Seg Neutrophils % Seg Neuts % (Manual) Baso # (Auto) Lymphocytes % (Manual) Monocytes % (Manual) Eosinophils % (Manual) Basophils % (Manual) Seg Neutrophils # Seg Neutrophils # Man Lymphocytes # (Manual) Monocytes # (Manual) Eosinophils # (Manual) Nucleated RBC % Basophils # (Manual) PT INR APTT Heparin Anti-Xa Level ABG pH POC ABG pO2 ABG pO2 ABG HCO3 ABG O2 Saturation ABG Base Excess POC ABG pCO2 ABG Hemoglobin ABG Oxyhemoglobin ABG Chloride ABG Glucose Oxyhemoglobin Sodium Potassium Chloride Carbon Dioxide BUN Creatinine Glucose POC Glucose 119 H 107 H 124 H Lactic Acid Calcium Phosphorus Magnesium AST ALT Lactate Dehydrogenase Total Bilirubin Direct Bilirubin CK-MB (CK-2) C-Reactive Protein NT-Pro-B Natriuret Pep Total Protein Albumin Arterial Blood Glucose Urine WBC (Auto) Urine Creatinine 01/13/20 01/14/20 01/14/20 20:40 00:10 05:33 WBC RBC Hgb Hct MCHC RDW MCV MCH Lymph % (Auto) [place] % (Auto) [place] # Eos # Lymph # (Auto) [place] # (Auto) Eos # (Auto) Seg Neutrophils % Seg Neuts % (Manual) Baso # (Auto) Lymphocytes % (Manual) Monocytes % (Manual) Eosinophils % (Manual) Basophils % (Manual) Seg Neutrophils # Seg Neutrophils # Man Lymphocytes # (Manual) Monocytes # (Manual) Eosinophils # (Manual) Nucleated RBC % Basophils # (Manual) PT INR APTT Heparin Anti-Xa Level ABG pH POC ABG pO2 ABG pO2 65.3 L ABG HCO3 31.8 H ABG O2 Saturation 93.5 L ABG Base Excess 6.7 H POC ABG pCO2 ABG Hemoglobin 13.3 L ABG Oxyhemoglobin ABG Chloride ABG Glucose Oxyhemoglobin 90.9 L Sodium Potassium Chloride Carbon Dioxide BUN Creatinine Glucose POC Glucose 111 H 111 H Lactic Acid Calcium Phosphorus Magnesium AST ALT Lactate Dehydrogenase Total Bilirubin Direct Bilirubin CK-MB (CK-2) C-Reactive Protein NT-Pro-B Natriuret Pep Total Protein Albumin Arterial Blood Glucose Urine WBC (Auto) Urine Creatinine 01/14/20 01/14/20 01/14/20 12:10 16:14 16:14 WBC RBC Hgb 10.6 L Hct 34.2 L MCHC 31 L RDW 18.3 H MCV 83 L MCH 26 L Lymph % (Auto) [place] % (Auto) 7.4 H [place] # Eos # Lymph # (Auto) [place] # (Auto) Eos # (Auto) Seg Neutrophils % 71.9 H Seg Neuts % (Manual) Baso # (Auto) Lymphocytes % (Manual) Monocytes % (Manual) Eosinophils % (Manual) Basophils % (Manual) Seg Neutrophils # Seg Neutrophils # Man Lymphocytes # (Manual) Monocytes # (Manual) Eosinophils # (Manual) Nucleated RBC % Basophils # (Manual) PT INR APTT Heparin Anti-Xa Level ABG pH POC ABG pO2 ABG pO2 ABG HCO3 ABG O2 Saturation ABG Base Excess POC ABG pCO2 ABG Hemoglobin ABG Oxyhemoglobin ABG Chloride ABG Glucose Oxyhemoglobin Sodium Potassium Chloride Carbon Dioxide 31 H BUN Creatinine 0.6 L Glucose 131 H POC Glucose 139 H Lactic Acid Calcium Phosphorus Magnesium AST ALT Lactate Dehydrogenase Total Bilirubin Direct Bilirubin CK-MB (CK-2) C-Reactive Protein NT-Pro-B Natriuret Pep Total Protein Albumin Arterial Blood Glucose Urine WBC (Auto) Urine Creatinine 01/14/20 01/15/20 01/15/20 18:05 00:52 05:35 WBC RBC Hgb Hct MCHC RDW MCV MCH Lymph % (Auto) [place] % (Auto) [place] # Eos # Lymph # (Auto) [place] # (Auto) Eos # (Auto) Seg Neutrophils % Seg Neuts % (Manual) Baso # (Auto) Lymphocytes % (Manual) Monocytes % (Manual) Eosinophils % (Manual) Basophils % (Manual) Seg Neutrophils # Seg Neutrophils # Man Lymphocytes # (Manual) Monocytes # (Manual) Eosinophils # (Manual) Nucleated RBC % Basophils # (Manual) PT INR APTT Heparin Anti-Xa Level ABG pH POC ABG pO2 ABG pO2 ABG HCO3 ABG O2 Saturation ABG Base Excess POC ABG pCO2 ABG Hemoglobin ABG Oxyhemoglobin ABG Chloride ABG Glucose Oxyhemoglobin Sodium Potassium Chloride Carbon Dioxide BUN Creatinine Glucose POC Glucose 147 H 140 H 159 H Lactic Acid Calcium Phosphorus Magnesium AST ALT Lactate Dehydrogenase Total Bilirubin Direct Bilirubin CK-MB (CK-2) C-Reactive Protein NT-Pro-B Natriuret Pep Total Protein Albumin Arterial Blood Glucose Urine WBC (Auto) Urine Creatinine 01/15/20 01/15/20 01/16/20 12:52 17:43 00:32 WBC RBC Hgb Hct MCHC RDW MCV MCH Lymph % (Auto) [place] % (Auto) [place] # Eos # Lymph # (Auto) [place] # (Auto) Eos # (Auto) Seg Neutrophils % Seg Neuts % (Manual) Baso # (Auto) Lymphocytes % (Manual) Monocytes % (Manual) Eosinophils % (Manual) Basophils % (Manual) Seg Neutrophils # Seg Neutrophils # Man Lymphocytes # (Manual) Monocytes # (Manual) Eosinophils # (Manual) Nucleated RBC % Basophils # (Manual) PT INR APTT Heparin Anti-Xa Level ABG pH POC ABG pO2 ABG pO2 ABG HCO3 ABG O2 Saturation ABG Base Excess POC ABG pCO2 ABG Hemoglobin ABG Oxyhemoglobin ABG Chloride ABG Glucose Oxyhemoglobin Sodium Potassium Chloride Carbon Dioxide BUN Creatinine Glucose POC Glucose 164 H 167 H 153 H Lactic Acid Calcium Phosphorus Magnesium AST ALT Lactate Dehydrogenase Total Bilirubin Direct Bilirubin CK-MB (CK-2) C-Reactive Protein NT-Pro-B Natriuret Pep Total Protein Albumin Arterial Blood Glucose Urine WBC (Auto) Urine Creatinine 01/16/20 01/16/20 01/17/20 05:46 11:48 06:38 WBC RBC Hgb Hct MCHC RDW MCV MCH Lymph % (Auto) [place] % (Auto) [place] # Eos # Lymph # (Auto) [place] # (Auto) Eos # (Auto) Seg Neutrophils % Seg Neuts % (Manual) Baso # (Auto) Lymphocytes % (Manual) Monocytes % (Manual) Eosinophils % (Manual) Basophils % (Manual) Seg Neutrophils # Seg Neutrophils # Man Lymphocytes # (Manual) Monocytes # (Manual) Eosinophils # (Manual) Nucleated RBC % Basophils # (Manual) PT INR APTT Heparin Anti-Xa Level ABG pH POC ABG pO2 ABG pO2 ABG HCO3 ABG O2 Saturation ABG Base Excess POC ABG pCO2 ABG Hemoglobin ABG Oxyhemoglobin ABG Chloride ABG Glucose Oxyhemoglobin Sodium Potassium Chloride Carbon Dioxide BUN Creatinine Glucose POC Glucose 163 H 155 H 116 H Lactic Acid Calcium Phosphorus Magnesium AST ALT Lactate Dehydrogenase Total Bilirubin Direct Bilirubin CK-MB (CK-2) C-Reactive Protein NT-Pro-B Natriuret Pep Total Protein Albumin Arterial Blood Glucose Urine WBC (Auto) Urine Creatinine 01/17/20 01/17/20 01/18/20 11:36 17:43 00:12 WBC RBC Hgb Hct MCHC RDW MCV MCH Lymph % (Auto) [place] % (Auto) [place] # Eos # Lymph # (Auto) [place] # (Auto) Eos # (Auto) Seg Neutrophils % Seg Neuts % (Manual) Baso # (Auto) Lymphocytes % (Manual) Monocytes % (Manual) Eosinophils % (Manual) Basophils % (Manual) Seg Neutrophils # Seg Neutrophils # Man Lymphocytes # (Manual) Monocytes # (Manual) Eosinophils # (Manual) Nucleated RBC % Basophils # (Manual) PT INR APTT Heparin Anti-Xa Level ABG pH POC ABG pO2 ABG pO2 ABG HCO3 ABG O2 Saturation ABG Base Excess POC ABG pCO2 ABG Hemoglobin ABG Oxyhemoglobin ABG Chloride ABG Glucose Oxyhemoglobin Sodium Potassium Chloride Carbon Dioxide BUN Creatinine Glucose POC Glucose 110 H 134 H 108 H Lactic Acid Calcium Phosphorus Magnesium AST ALT Lactate Dehydrogenase Total Bilirubin Direct Bilirubin CK-MB (CK-2) C-Reactive Protein NT-Pro-B Natriuret Pep Total Protein Albumin Arterial Blood Glucose Urine WBC (Auto) Urine Creatinine 01/18/20 01/18/20 01/18/20 05:37 06:46 06:46 WBC RBC Hgb 10.1 L Hct 32.2 L MCHC 31 L RDW 18.1 H MCV 81 L MCH 25 L Lymph % (Auto) [place] % (Auto) [place] # Eos # Lymph # (Auto) [place] # (Auto) Eos # (Auto) Seg Neutrophils % 71.9 H Seg Neuts % (Manual) Baso # (Auto) Lymphocytes % (Manual) Monocytes % (Manual) Eosinophils % (Manual) Basophils % (Manual) Seg Neutrophils # Seg Neutrophils # Man Lymphocytes # (Manual) Monocytes # (Manual) Eosinophils # (Manual) Nucleated RBC % Basophils # (Manual) PT INR APTT Heparin Anti-Xa Level ABG pH POC ABG pO2 ABG pO2 ABG HCO3 ABG O2 Saturation ABG Base Excess POC ABG pCO2 ABG Hemoglobin ABG Oxyhemoglobin ABG Chloride ABG Glucose Oxyhemoglobin Sodium Potassium Chloride Carbon Dioxide BUN Creatinine 0.7 L Glucose 155 H POC Glucose 168 H Lactic Acid Calcium Phosphorus Magnesium AST ALT Lactate Dehydrogenase Total Bilirubin Direct Bilirubin CK-MB (CK-2) C-Reactive Protein NT-Pro-B Natriuret Pep Total Protein Albumin Arterial Blood Glucose Urine WBC (Auto) Urine Creatinine 01/18/20 01/18/20 01/18/20 12:05 17:14 23:28 WBC RBC Hgb Hct MCHC RDW MCV MCH Lymph % (Auto) [place] % (Auto) [place] # Eos # Lymph # (Auto) [place] # (Auto) Eos # (Auto) Seg Neutrophils % Seg Neuts % (Manual) Baso # (Auto) Lymphocytes % (Manual) Monocytes % (Manual) Eosinophils % (Manual) Basophils % (Manual) Seg Neutrophils # Seg Neutrophils # Man Lymphocytes # (Manual) Monocytes # (Manual) Eosinophils # (Manual) Nucleated RBC % Basophils # (Manual) PT INR APTT Heparin Anti-Xa Level ABG pH POC ABG pO2 ABG pO2 ABG HCO3 ABG O2 Saturation ABG Base Excess POC ABG pCO2 ABG Hemoglobin ABG Oxyhemoglobin ABG Chloride ABG Glucose Oxyhemoglobin Sodium Potassium Chloride Carbon Dioxide BUN Creatinine Glucose POC Glucose 128 H 126 H 128 H Lactic Acid Calcium Phosphorus Magnesium AST ALT Lactate Dehydrogenase Total Bilirubin Direct Bilirubin CK-MB (CK-2) C-Reactive Protein NT-Pro-B Natriuret Pep Total Protein Albumin Arterial Blood Glucose Urine WBC (Auto) Urine Creatinine 01/19/20 01/19/20 01/19/20 05:39 12:33 17:36 WBC RBC Hgb Hct MCHC RDW MCV MCH Lymph % (Auto) [place] % (Auto) [place] # Eos # Lymph # (Auto) [place] # (Auto) Eos # (Auto) Seg Neutrophils % Seg Neuts % (Manual) Baso # (Auto) Lymphocytes % (Manual) Monocytes % (Manual) Eosinophils % (Manual) Basophils % (Manual) Seg Neutrophils # Seg Neutrophils # Man Lymphocytes # (Manual) Monocytes # (Manual) Eosinophils # (Manual) Nucleated RBC % Basophils # (Manual) PT INR APTT Heparin Anti-Xa Level ABG pH POC ABG pO2 ABG pO2 ABG HCO3 ABG O2 Saturation ABG Base Excess POC ABG pCO2 ABG Hemoglobin ABG Oxyhemoglobin ABG Chloride ABG Glucose Oxyhemoglobin Sodium Potassium Chloride Carbon Dioxide BUN Creatinine Glucose POC Glucose 164 H 171 H 152 H Lactic Acid Calcium Phosphorus Magnesium AST ALT Lactate Dehydrogenase Total Bilirubin Direct Bilirubin CK-MB (CK-2) C-Reactive Protein NT-Pro-B Natriuret Pep Total Protein Albumin Arterial Blood Glucose Urine WBC (Auto) Urine Creatinine 01/20/20 01/20/20 01/20/20 00:12 05:20 05:35 WBC RBC Hgb 9.2 L Hct 29.4 L MCHC 31 L RDW 17.9 H MCV 81 L MCH 25 L Lymph % (Auto) [place] % (Auto) [place] # Eos # Lymph # (Auto) [place] # (Auto) Eos # (Auto) Seg Neutrophils % Seg Neuts % (Manual) Baso # (Auto) Lymphocytes % (Manual) Monocytes % (Manual) Eosinophils % (Manual) Basophils % (Manual) Seg Neutrophils # Seg Neutrophils # Man Lymphocytes # (Manual) Monocytes # (Manual) Eosinophils # (Manual) Nucleated RBC % Basophils # (Manual) PT INR APTT Heparin Anti-Xa Level ABG pH POC ABG pO2 ABG pO2 ABG HCO3 ABG O2 Saturation ABG Base Excess POC ABG pCO2 ABG Hemoglobin ABG Oxyhemoglobin ABG Chloride ABG Glucose Oxyhemoglobin Sodium Potassium Chloride Carbon Dioxide BUN Creatinine Glucose POC Glucose 120 H 136 H Lactic Acid Calcium Phosphorus Magnesium AST ALT Lactate Dehydrogenase Total Bilirubin Direct Bilirubin CK-MB (CK-2) C-Reactive Protein NT-Pro-B Natriuret Pep Total Protein Albumin Arterial Blood Glucose Urine WBC (Auto) Urine Creatinine 01/20/20 01/20/20 01/20/20 05:40 11:58 14:55 WBC RBC Hgb 9.0 L Hct 28.3 L MCHC RDW MCV MCH Lymph % (Auto) [place] % (Auto) [place] # Eos # Lymph # (Auto) [place] # (Auto) Eos # (Auto) Seg Neutrophils % Seg Neuts % (Manual) Baso # (Auto) Lymphocytes % (Manual) Monocytes % (Manual) Eosinophils % (Manual) Basophils % (Manual) Seg Neutrophils # Seg Neutrophils # Man Lymphocytes # (Manual) Monocytes # (Manual) Eosinophils # (Manual) Nucleated RBC % Basophils # (Manual) PT INR APTT Heparin Anti-Xa Level ABG pH POC ABG pO2 ABG pO2 ABG HCO3 ABG O2 Saturation ABG Base Excess POC ABG pCO2 ABG Hemoglobin ABG Oxyhemoglobin ABG Chloride ABG Glucose Oxyhemoglobin Sodium Potassium Chloride Carbon Dioxide 32 H BUN 22 H Creatinine 0.7 L Glucose 128 H POC Glucose 152 H Lactic Acid Calcium Phosphorus Magnesium AST ALT Lactate Dehydrogenase Total Bilirubin Direct Bilirubin CK-MB (CK-2) C-Reactive Protein NT-Pro-B Natriuret Pep Total Protein Albumin Arterial Blood Glucose Urine WBC (Auto) Urine Creatinine 01/20/20 01/20/20 01/20/20 14:55 18:14 21:35 WBC RBC Hgb Hct MCHC RDW MCV MCH Lymph % (Auto) [place] % (Auto) [place] # Eos # Lymph # (Auto) [place] # (Auto) Eos # (Auto) Seg Neutrophils % Seg Neuts % (Manual) Baso # (Auto) Lymphocytes % (Manual) Monocytes % (Manual) Eosinophils % (Manual) Basophils % (Manual) Seg Neutrophils # Seg Neutrophils # Man Lymphocytes # (Manual) Monocytes # (Manual) Eosinophils # (Manual) Nucleated RBC % Basophils # (Manual) PT 20.4 H INR 1.72 H APTT 40.6 H Heparin Anti-Xa Level > 2.00 H ABG pH POC ABG pO2 ABG pO2 ABG HCO3 ABG O2 Saturation ABG Base Excess POC ABG pCO2 ABG Hemoglobin ABG Oxyhemoglobin ABG Chloride ABG Glucose Oxyhemoglobin Sodium Potassium Chloride Carbon Dioxide BUN Creatinine Glucose POC Glucose 150 H Lactic Acid Calcium Phosphorus Magnesium AST ALT Lactate Dehydrogenase Total Bilirubin Direct Bilirubin CK-MB (CK-2) C-Reactive Protein NT-Pro-B Natriuret Pep Total Protein Albumin Arterial Blood Glucose Urine WBC (Auto) Urine Creatinine 01/21/20 01/21/20 01/21/20 00:30 05:47 05:59 WBC RBC Hgb Hct MCHC RDW MCV MCH Lymph % (Auto) [place] % (Auto) [place] # Eos # Lymph # (Auto) [place] # (Auto) Eos # (Auto) Seg Neutrophils % Seg Neuts % (Manual) Baso # (Auto) Lymphocytes % (Manual) Monocytes % (Manual) Eosinophils % (Manual) Basophils % (Manual) Seg Neutrophils # Seg Neutrophils # Man Lymphocytes # (Manual) Monocytes # (Manual) Eosinophils # (Manual) Nucleated RBC % Basophils # (Manual) PT INR APTT Heparin Anti-Xa Level 1.93 H ABG pH POC ABG pO2 ABG pO2 ABG HCO3 ABG O2 Saturation ABG Base Excess POC ABG pCO2 ABG Hemoglobin ABG Oxyhemoglobin ABG Chloride ABG Glucose Oxyhemoglobin Sodium Potassium Chloride Carbon Dioxide BUN Creatinine Glucose POC Glucose 126 H 148 H Lactic Acid Calcium Phosphorus Magnesium AST ALT Lactate Dehydrogenase Total Bilirubin Direct Bilirubin CK-MB (CK-2) C-Reactive Protein NT-Pro-B Natriuret Pep Total Protein Albumin Arterial Blood Glucose Urine WBC (Auto) Urine Creatinine 01/21/20 01/21/20 01/21/20 12:32 18:20 23:54 WBC RBC Hgb Hct MCHC RDW MCV MCH Lymph % (Auto) [place] % (Auto) [place] # Eos # Lymph # (Auto) [place] # (Auto) Eos # (Auto) Seg Neutrophils % Seg Neuts % (Manual) Baso # (Auto) Lymphocytes % (Manual) Monocytes % (Manual) Eosinophils % (Manual) Basophils % (Manual) Seg Neutrophils # Seg Neutrophils # Man Lymphocytes # (Manual) Monocytes # (Manual) Eosinophils # (Manual) Nucleated RBC % Basophils # (Manual) PT INR APTT Heparin Anti-Xa Level 1.28 H ABG pH POC ABG pO2 ABG pO2 ABG HCO3 ABG O2 Saturation ABG Base Excess POC ABG pCO2 ABG Hemoglobin ABG Oxyhemoglobin ABG Chloride ABG Glucose Oxyhemoglobin Sodium Potassium Chloride Carbon Dioxide BUN Creatinine Glucose POC Glucose 112 H 146 H Lactic Acid Calcium Phosphorus Magnesium AST ALT Lactate Dehydrogenase Total Bilirubin Direct Bilirubin CK-MB (CK-2) C-Reactive Protein NT-Pro-B Natriuret Pep Total Protein Albumin Arterial Blood Glucose Urine WBC (Auto) Urine Creatinine 01/22/20 01/22/20 01/22/20 04:45 04:45 05:48 WBC RBC Hgb 9.3 L Hct 29.0 L MCHC RDW MCV MCH Lymph % (Auto) [place] % (Auto) [place] # Eos # Lymph # (Auto) [place] # (Auto) Eos # (Auto) Seg Neutrophils % Seg Neuts % (Manual) Baso # (Auto) Lymphocytes % (Manual) Monocytes % (Manual) Eosinophils % (Manual) Basophils % (Manual) Seg Neutrophils # Seg Neutrophils # Man Lymphocytes # (Manual) Monocytes # (Manual) Eosinophils # (Manual) Nucleated RBC % Basophils # (Manual) PT INR APTT Heparin Anti-Xa Level 1.34 H ABG pH POC ABG pO2 ABG pO2 ABG HCO3 ABG O2 Saturation ABG Base Excess POC ABG pCO2 ABG Hemoglobin ABG Oxyhemoglobin ABG Chloride ABG Glucose Oxyhemoglobin Sodium Potassium Chloride Carbon Dioxide BUN Creatinine Glucose POC Glucose 142 H Lactic Acid Calcium Phosphorus Magnesium AST ALT Lactate Dehydrogenase Total Bilirubin Direct Bilirubin CK-MB (CK-2) C-Reactive Protein NT-Pro-B Natriuret Pep Total Protein Albumin Arterial Blood Glucose Urine WBC (Auto) Urine Creatinine 01/22/20 01/22/20 01/22/20 08:09 08:22 09:58 WBC RBC Hgb Hct MCHC RDW MCV MCH Lymph % (Auto) [place] % (Auto) [place] # Eos # Lymph # (Auto) [place] # (Auto) Eos # (Auto) Seg Neutrophils % Seg Neuts % (Manual) Baso # (Auto) Lymphocytes % (Manual) Monocytes % (Manual) Eosinophils % (Manual) Basophils % (Manual) Seg Neutrophils # Seg Neutrophils # Man Lymphocytes # (Manual) Monocytes # (Manual) Eosinophils # (Manual) Nucleated RBC % Basophils # (Manual) PT 16.9 H INR 1.34 H APTT Heparin Anti-Xa Level ABG pH POC ABG pO2 ABG pO2 ABG HCO3 ABG O2 Saturation ABG Base Excess POC ABG pCO2 ABG Hemoglobin ABG Oxyhemoglobin ABG Chloride ABG Glucose Oxyhemoglobin Sodium Potassium Chloride 97.8 L Carbon Dioxide BUN 29 H Creatinine Glucose 128 H POC Glucose 131 H Lactic Acid Calcium Phosphorus Magnesium AST ALT Lactate Dehydrogenase Total Bilirubin Direct Bilirubin CK-MB (CK-2) C-Reactive Protein NT-Pro-B Natriuret Pep Total Protein Albumin Arterial Blood Glucose Urine WBC (Auto) Urine Creatinine 01/22/20 01/22/20 01/22/20 12:44 16:13 18:18 WBC RBC Hgb Hct MCHC RDW MCV MCH Lymph % (Auto) [place] % (Auto) [place] # Eos # Lymph # (Auto) [place] # (Auto) Eos # (Auto) Seg Neutrophils % Seg Neuts % (Manual) Baso # (Auto) Lymphocytes % (Manual) Monocytes % (Manual) Eosinophils % (Manual) Basophils % (Manual) Seg Neutrophils # Seg Neutrophils # Man Lymphocytes # (Manual) Monocytes # (Manual) Eosinophils # (Manual) Nucleated RBC % Basophils # (Manual) PT INR APTT Heparin Anti-Xa Level ABG pH POC ABG pO2 ABG pO2 ABG HCO3 ABG O2 Saturation ABG Base Excess POC ABG pCO2 ABG Hemoglobin ABG Oxyhemoglobin ABG Chloride ABG Glucose Oxyhemoglobin Sodium Potassium Chloride Carbon Dioxide BUN Creatinine Glucose POC Glucose 156 H 133 H 155 H Lactic Acid Calcium Phosphorus Magnesium AST ALT Lactate Dehydrogenase Total Bilirubin Direct Bilirubin CK-MB (CK-2) C-Reactive Protein NT-Pro-B Natriuret Pep Total Protein Albumin Arterial Blood Glucose Urine WBC (Auto) Urine Creatinine 01/22/20 01/23/20 01/23/20 23:22 05:37 12:59 WBC RBC Hgb Hct MCHC RDW MCV MCH Lymph % (Auto) [place] % (Auto) [place] # Eos # Lymph # (Auto) [place] # (Auto) Eos # (Auto) Seg Neutrophils % Seg Neuts % (Manual) Baso # (Auto) Lymphocytes % (Manual) Monocytes % (Manual) Eosinophils % (Manual) Basophils % (Manual) Seg Neutrophils # Seg Neutrophils # Man Lymphocytes # (Manual) Monocytes # (Manual) Eosinophils # (Manual) Nucleated RBC % Basophils # (Manual) PT INR APTT Heparin Anti-Xa Level ABG pH POC ABG pO2 ABG pO2 ABG HCO3 ABG O2 Saturation ABG Base Excess POC ABG pCO2 ABG Hemoglobin ABG Oxyhemoglobin ABG Chloride ABG Glucose Oxyhemoglobin Sodium Potassium Chloride Carbon Dioxide BUN Creatinine Glucose POC Glucose 148 H 163 H 175 H Lactic Acid Calcium Phosphorus Magnesium AST ALT Lactate Dehydrogenase Total Bilirubin Direct Bilirubin CK-MB (CK-2) C-Reactive Protein NT-Pro-B Natriuret Pep Total Protein Albumin Arterial Blood Glucose Urine WBC (Auto) Urine Creatinine 01/23/20 01/23/20 01/24/20 17:28 23:56 04:30 WBC RBC 3.46 L Hgb 8.8 L Hct 27.8 L MCHC RDW 18.2 H MCV 81 L MCH 25 L Lymph % (Auto) [place] % (Auto) 7.8 H [place] # Eos # Lymph # (Auto) [place] # (Auto) Eos # (Auto) Seg Neutrophils % Seg Neuts % (Manual) Baso # (Auto) Lymphocytes % (Manual) Monocytes % (Manual) Eosinophils % (Manual) Basophils % (Manual) Seg Neutrophils # Seg Neutrophils # Man Lymphocytes # (Manual) Monocytes # (Manual) Eosinophils # (Manual) Nucleated RBC % Basophils # (Manual) PT INR APTT Heparin Anti-Xa Level ABG pH POC ABG pO2 ABG pO2 ABG HCO3 ABG O2 Saturation ABG Base Excess POC ABG pCO2 ABG Hemoglobin ABG Oxyhemoglobin ABG Chloride ABG Glucose Oxyhemoglobin Sodium Potassium Chloride Carbon Dioxide BUN Creatinine Glucose POC Glucose 165 H 177 H Lactic Acid Calcium Phosphorus Magnesium AST ALT Lactate Dehydrogenase Total Bilirubin Direct Bilirubin CK-MB (CK-2) C-Reactive Protein NT-Pro-B Natriuret Pep Total Protein Albumin Arterial Blood Glucose Urine WBC (Auto) Urine Creatinine 01/24/20 01/24/20 01/24/20 04:30 07:18 12:06 WBC RBC Hgb Hct MCHC RDW MCV MCH Lymph % (Auto) [place] % (Auto) [place] # Eos # Lymph # (Auto) [place] # (Auto) Eos # (Auto) Seg Neutrophils % Seg Neuts % (Manual) Baso # (Auto) Lymphocytes % (Manual) Monocytes % (Manual) Eosinophils % (Manual) Basophils % (Manual) Seg Neutrophils # Seg Neutrophils # Man Lymphocytes # (Manual) Monocytes # (Manual) Eosinophils # (Manual) Nucleated RBC % Basophils # (Manual) PT INR APTT Heparin Anti-Xa Level ABG pH POC ABG pO2 ABG pO2 ABG HCO3 ABG O2 Saturation ABG Base Excess POC ABG pCO2 ABG Hemoglobin ABG Oxyhemoglobin ABG Chloride ABG Glucose Oxyhemoglobin Sodium Potassium Chloride 97.9 L Carbon Dioxide BUN 31 H Creatinine Glucose 146 H POC Glucose 151 H 133 H Lactic Acid Calcium Phosphorus Magnesium AST ALT Lactate Dehydrogenase Total Bilirubin Direct Bilirubin CK-MB (CK-2) C-Reactive Protein NT-Pro-B Natriuret Pep Total Protein Albumin Arterial Blood Glucose Urine WBC (Auto) Urine Creatinine 01/24/20 01/25/20 01/25/20 17:36 00:08 04:25 WBC RBC 3.50 L Hgb 8.7 L Hct 27.9 L MCHC 31 L RDW 18.2 H MCV 80 L MCH 25 L Lymph % (Auto) [place] % (Auto) 8.5 H [place] # Eos # Lymph # (Auto) [place] # (Auto) Eos # (Auto) Seg Neutrophils % Seg Neuts % (Manual) Baso # (Auto) Lymphocytes % (Manual) Monocytes % (Manual) Eosinophils % (Manual) Basophils % (Manual) Seg Neutrophils # Seg Neutrophils # Man Lymphocytes # (Manual) Monocytes # (Manual) Eosinophils # (Manual) Nucleated RBC % Basophils # (Manual) PT INR APTT Heparin Anti-Xa Level ABG pH POC ABG pO2 ABG pO2 ABG HCO3 ABG O2 Saturation ABG Base Excess POC ABG pCO2 ABG Hemoglobin ABG Oxyhemoglobin ABG Chloride ABG Glucose Oxyhemoglobin Sodium Potassium Chloride Carbon Dioxide BUN Creatinine Glucose POC Glucose 133 H 129 H Lactic Acid Calcium Phosphorus Magnesium AST ALT Lactate Dehydrogenase Total Bilirubin Direct Bilirubin CK-MB (CK-2) C-Reactive Protein NT-Pro-B Natriuret Pep Total Protein Albumin Arterial Blood Glucose Urine WBC (Auto) Urine Creatinine 01/25/20 01/25/20 01/25/20 04:25 05:38 11:52 WBC RBC Hgb Hct MCHC RDW MCV MCH Lymph % (Auto) [place] % (Auto) [place] # Eos # Lymph # (Auto) [place] # (Auto) Eos # (Auto) Seg Neutrophils % Seg Neuts % (Manual) Baso # (Auto) Lymphocytes % (Manual) Monocytes % (Manual) Eosinophils % (Manual) Basophils % (Manual) Seg Neutrophils # Seg Neutrophils # Man Lymphocytes # (Manual) Monocytes # (Manual) Eosinophils # (Manual) Nucleated RBC % Basophils # (Manual) PT INR APTT Heparin Anti-Xa Level ABG pH POC ABG pO2 ABG pO2 ABG HCO3 ABG O2 Saturation ABG Base Excess POC ABG pCO2 ABG Hemoglobin ABG Oxyhemoglobin ABG Chloride ABG Glucose Oxyhemoglobin Sodium Potassium Chloride Carbon Dioxide BUN 30 H Creatinine Glucose 134 H POC Glucose 129 H 134 H Lactic Acid Calcium Phosphorus Magnesium AST ALT Lactate Dehydrogenase Total Bilirubin Direct Bilirubin CK-MB (CK-2) C-Reactive Protein NT-Pro-B Natriuret Pep Total Protein Albumin Arterial Blood Glucose Urine WBC (Auto) Urine Creatinine 01/25/20 01/25/20 01/26/20 17:13 21:02 00:59 WBC RBC Hgb Hct MCHC RDW MCV MCH Lymph % (Auto) [place] % (Auto) [place] # Eos # Lymph # (Auto) [place] # (Auto) Eos # (Auto) Seg Neutrophils % Seg Neuts % (Manual) Baso # (Auto) Lymphocytes % (Manual) Monocytes % (Manual) Eosinophils % (Manual) Basophils % (Manual) Seg Neutrophils # Seg Neutrophils # Man Lymphocytes # (Manual) Monocytes # (Manual) Eosinophils # (Manual) Nucleated RBC % Basophils # (Manual) PT INR APTT Heparin Anti-Xa Level ABG pH POC ABG pO2 ABG pO2 57.5 L ABG HCO3 31.7 H ABG O2 Saturation 90.3 L ABG Base Excess 6.6 H POC ABG pCO2 ABG Hemoglobin 13.0 L ABG Oxyhemoglobin ABG Chloride ABG Glucose Oxyhemoglobin 87.5 L Sodium Potassium Chloride Carbon Dioxide BUN Creatinine Glucose POC Glucose 124 H 196 H Lactic Acid Calcium Phosphorus Magnesium AST ALT Lactate Dehydrogenase Total Bilirubin Direct Bilirubin CK-MB (CK-2) C-Reactive Protein NT-Pro-B Natriuret Pep Total Protein Albumin Arterial Blood Glucose Urine WBC (Auto) Urine Creatinine 01/26/20 01/26/20 01/26/20 03:20 05:46 12:46 WBC RBC Hgb 9.2 L Hct 29.4 L MCHC RDW MCV MCH Lymph % (Auto) [place] % (Auto) [place] # Eos # Lymph # (Auto) [place] # (Auto) Eos # (Auto) Seg Neutrophils % Seg Neuts % (Manual) Baso # (Auto) Lymphocytes % (Manual) Monocytes % (Manual) Eosinophils % (Manual) Basophils % (Manual) Seg Neutrophils # Seg Neutrophils # Man Lymphocytes # (Manual) Monocytes # (Manual) Eosinophils # (Manual) Nucleated RBC % Basophils # (Manual) PT INR APTT Heparin Anti-Xa Level ABG pH POC ABG pO2 ABG pO2 ABG HCO3 ABG O2 Saturation ABG Base Excess POC ABG pCO2 ABG Hemoglobin ABG Oxyhemoglobin ABG Chloride ABG Glucose Oxyhemoglobin Sodium Potassium Chloride Carbon Dioxide BUN Creatinine Glucose POC Glucose 141 H 122 H Lactic Acid Calcium Phosphorus Magnesium AST ALT Lactate Dehydrogenase Total Bilirubin Direct Bilirubin CK-MB (CK-2) C-Reactive Protein NT-Pro-B Natriuret Pep Total Protein Albumin Arterial Blood Glucose Urine WBC (Auto) Urine Creatinine 01/26/20 01/26/20 01/27/20 18:03 23:55 04:47 WBC RBC Hgb Hct MCHC RDW MCV MCH Lymph % (Auto) [place] % (Auto) [place] # Eos # Lymph # (Auto) [place] # (Auto) Eos # (Auto) Seg Neutrophils % Seg Neuts % (Manual) Baso # (Auto) Lymphocytes % (Manual) Monocytes % (Manual) Eosinophils % (Manual) Basophils % (Manual) Seg Neutrophils # Seg Neutrophils # Man Lymphocytes # (Manual) Monocytes # (Manual) Eosinophils # (Manual) Nucleated RBC % Basophils # (Manual) PT INR APTT Heparin Anti-Xa Level ABG pH POC ABG pO2 ABG pO2 ABG HCO3 ABG O2 Saturation ABG Base Excess POC ABG pCO2 ABG Hemoglobin ABG Oxyhemoglobin ABG Chloride ABG Glucose Oxyhemoglobin Sodium Potassium Chloride Carbon Dioxide BUN 30 H Creatinine 0.7 L Glucose 135 H POC Glucose 142 H 159 H Lactic Acid Calcium Phosphorus Magnesium AST ALT Lactate Dehydrogenase Total Bilirubin Direct Bilirubin CK-MB (CK-2) C-Reactive Protein NT-Pro-B Natriuret Pep Total Protein Albumin Arterial Blood Glucose Urine WBC (Auto) Urine Creatinine 01/27/20 01/27/20 01/27/20 05:43 12:06 17:16 WBC RBC Hgb Hct MCHC RDW MCV MCH Lymph % (Auto) [place] % (Auto) [place] # Eos # Lymph # (Auto) [place] # (Auto) Eos # (Auto) Seg Neutrophils % Seg Neuts % (Manual) Baso # (Auto) Lymphocytes % (Manual) Monocytes % (Manual) Eosinophils % (Manual) Basophils % (Manual) Seg Neutrophils # Seg Neutrophils # Man Lymphocytes # (Manual) Monocytes # (Manual) Eosinophils # (Manual) Nucleated RBC % Basophils # (Manual) PT INR APTT Heparin Anti-Xa Level ABG pH POC ABG pO2 ABG pO2 ABG HCO3 ABG O2 Saturation ABG Base Excess POC ABG pCO2 ABG Hemoglobin ABG Oxyhemoglobin ABG Chloride ABG Glucose Oxyhemoglobin Sodium Potassium Chloride Carbon Dioxide BUN Creatinine Glucose POC Glucose 143 H 142 H 128 H Lactic Acid Calcium Phosphorus Magnesium AST ALT Lactate Dehydrogenase Total Bilirubin Direct Bilirubin CK-MB (CK-2) C-Reactive Protein NT-Pro-B Natriuret Pep Total Protein Albumin Arterial Blood Glucose Urine WBC (Auto) Urine Creatinine 01/27/20 01/28/20 01/28/20 23:55 04:37 05:55 WBC RBC Hgb 9.4 L Hct 29.9 L MCHC RDW MCV MCH Lymph % (Auto) [place] % (Auto) [place] # Eos # Lymph # (Auto) [place] # (Auto) Eos # (Auto) Seg Neutrophils % Seg Neuts % (Manual) Baso # (Auto) Lymphocytes % (Manual) Monocytes % (Manual) Eosinophils % (Manual) Basophils % (Manual) Seg Neutrophils # Seg Neutrophils # Man Lymphocytes # (Manual) Monocytes # (Manual) Eosinophils # (Manual) Nucleated RBC % Basophils # (Manual) PT INR APTT Heparin Anti-Xa Level ABG pH POC ABG pO2 ABG pO2 ABG HCO3 ABG O2 Saturation ABG Base Excess POC ABG pCO2 ABG Hemoglobin ABG Oxyhemoglobin ABG Chloride ABG Glucose Oxyhemoglobin Sodium Potassium Chloride Carbon Dioxide BUN Creatinine Glucose POC Glucose 166 H 169 H Lactic Acid Calcium Phosphorus Magnesium AST ALT Lactate Dehydrogenase Total Bilirubin Direct Bilirubin CK-MB (CK-2) C-Reactive Protein NT-Pro-B Natriuret Pep Total Protein Albumin Arterial Blood Glucose Urine WBC (Auto) Urine Creatinine 01/28/20 01/28/20 01/28/20 11:58 17:26 23:46 WBC RBC Hgb Hct MCHC RDW MCV MCH Lymph % (Auto) [place] % (Auto) [place] # Eos # Lymph # (Auto) [place] # (Auto) Eos # (Auto) Seg Neutrophils % Seg Neuts % (Manual) Baso # (Auto) Lymphocytes % (Manual) Monocytes % (Manual) Eosinophils % (Manual) Basophils % (Manual) Seg Neutrophils # Seg Neutrophils # Man Lymphocytes # (Manual) Monocytes # (Manual) Eosinophils # (Manual) Nucleated RBC % Basophils # (Manual) PT INR APTT Heparin Anti-Xa Level ABG pH POC ABG pO2 ABG pO2 ABG HCO3 ABG O2 Saturation ABG Base Excess POC ABG pCO2 ABG Hemoglobin ABG Oxyhemoglobin ABG Chloride ABG Glucose Oxyhemoglobin Sodium Potassium Chloride Carbon Dioxide BUN Creatinine Glucose POC Glucose 130 H 126 H 150 H Lactic Acid Calcium Phosphorus Magnesium AST ALT Lactate Dehydrogenase Total Bilirubin Direct Bilirubin CK-MB (CK-2) C-Reactive Protein NT-Pro-B Natriuret Pep Total Protein Albumin Arterial Blood Glucose Urine WBC (Auto) Urine Creatinine 01/29/20 01/29/20 01/29/20 04:55 06:00 12:28 WBC RBC Hgb Hct MCHC RDW MCV MCH Lymph % (Auto) [place] % (Auto) [place] # Eos # Lymph # (Auto) [place] # (Auto) Eos # (Auto) Seg Neutrophils % Seg Neuts % (Manual) Baso # (Auto) Lymphocytes % (Manual) Monocytes % (Manual) Eosinophils % (Manual) Basophils % (Manual) Seg Neutrophils # Seg Neutrophils # Man Lymphocytes # (Manual) Monocytes # (Manual) Eosinophils # (Manual) Nucleated RBC % Basophils # (Manual) PT INR APTT Heparin Anti-Xa Level ABG pH POC ABG pO2 ABG pO2 ABG HCO3 ABG O2 Saturation ABG Base Excess POC ABG pCO2 ABG Hemoglobin ABG Oxyhemoglobin ABG Chloride ABG Glucose Oxyhemoglobin Sodium Potassium Chloride Carbon Dioxide 34 H BUN Creatinine 0.6 L Glucose 152 H POC Glucose 157 H 156 H Lactic Acid Calcium Phosphorus Magnesium AST ALT Lactate Dehydrogenase Total Bilirubin Direct Bilirubin CK-MB (CK-2) C-Reactive Protein NT-Pro-B Natriuret Pep Total Protein Albumin Arterial Blood Glucose Urine WBC (Auto) Urine Creatinine 01/29/20 01/30/20 01/30/20 19:06 00:29 05:39 WBC RBC Hgb Hct MCHC RDW MCV MCH Lymph % (Auto) [place] % (Auto) [place] # Eos # Lymph # (Auto) [place] # (Auto) Eos # (Auto) Seg Neutrophils % Seg Neuts % (Manual) Baso # (Auto) Lymphocytes % (Manual) Monocytes % (Manual) Eosinophils % (Manual) Basophils % (Manual) Seg Neutrophils # Seg Neutrophils # Man Lymphocytes # (Manual) Monocytes # (Manual) Eosinophils # (Manual) Nucleated RBC % Basophils # (Manual) PT INR APTT Heparin Anti-Xa Level ABG pH POC ABG pO2 ABG pO2 ABG HCO3 ABG O2 Saturation ABG Base Excess POC ABG pCO2 ABG Hemoglobin ABG Oxyhemoglobin ABG Chloride ABG Glucose Oxyhemoglobin Sodium Potassium Chloride Carbon Dioxide BUN Creatinine Glucose POC Glucose 152 H 132 H 159 H Lactic Acid Calcium Phosphorus Magnesium AST ALT Lactate Dehydrogenase Total Bilirubin Direct Bilirubin CK-MB (CK-2) C-Reactive Protein NT-Pro-B Natriuret Pep Total Protein Albumin Arterial Blood Glucose Urine WBC (Auto) Urine Creatinine 01/30/20 01/30/20 01/30/20 12:27 17:42 23:28 WBC RBC Hgb Hct MCHC RDW MCV MCH Lymph % (Auto) [place] % (Auto) [place] # Eos # Lymph # (Auto) [place] # (Auto) Eos # (Auto) Seg Neutrophils % Seg Neuts % (Manual) Baso # (Auto) Lymphocytes % (Manual) Monocytes % (Manual) Eosinophils % (Manual) Basophils % (Manual) Seg Neutrophils # Seg Neutrophils # Man Lymphocytes # (Manual) Monocytes # (Manual) Eosinophils # (Manual) Nucleated RBC % Basophils # (Manual) PT INR APTT Heparin Anti-Xa Level ABG pH POC ABG pO2 ABG pO2 ABG HCO3 ABG O2 Saturation ABG Base Excess POC ABG pCO2 ABG Hemoglobin ABG Oxyhemoglobin ABG Chloride ABG Glucose Oxyhemoglobin Sodium Potassium Chloride Carbon Dioxide BUN Creatinine Glucose POC Glucose 151 H 144 H 164 H Lactic Acid Calcium Phosphorus Magnesium AST ALT Lactate Dehydrogenase Total Bilirubin Direct Bilirubin CK-MB (CK-2) C-Reactive Protein NT-Pro-B Natriuret Pep Total Protein Albumin Arterial Blood Glucose Urine WBC (Auto) Urine Creatinine 01/31/20 01/31/20 01/31/20 05:51 11:51 18:06 WBC RBC Hgb Hct MCHC RDW MCV MCH Lymph % (Auto) [place] % (Auto) [place] # Eos # Lymph # (Auto) [place] # (Auto) Eos # (Auto) Seg Neutrophils % Seg Neuts % (Manual) Baso # (Auto) Lymphocytes % (Manual) Monocytes % (Manual) Eosinophils % (Manual) Basophils % (Manual) Seg Neutrophils # Seg Neutrophils # Man Lymphocytes # (Manual) Monocytes # (Manual) Eosinophils # (Manual) Nucleated RBC % Basophils # (Manual) PT INR APTT Heparin Anti-Xa Level ABG pH POC ABG pO2 ABG pO2 ABG HCO3 ABG O2 Saturation ABG Base Excess POC ABG pCO2 ABG Hemoglobin ABG Oxyhemoglobin ABG Chloride ABG Glucose Oxyhemoglobin Sodium Potassium Chloride Carbon Dioxide BUN Creatinine Glucose POC Glucose 131 H 167 H 210 H Lactic Acid Calcium Phosphorus Magnesium AST ALT Lactate Dehydrogenase Total Bilirubin Direct Bilirubin CK-MB (CK-2) C-Reactive Protein NT-Pro-B Natriuret Pep Total Protein Albumin Arterial Blood Glucose Urine WBC (Auto) Urine Creatinine 01/31/20 01/31/20 02/01/20 19:24 Unknown 00:34 WBC RBC Hgb Hct MCHC RDW MCV MCH Lymph % (Auto) [place] % (Auto) [place] # Eos # Lymph # (Auto) [place] # (Auto) Eos # (Auto) Seg Neutrophils % Seg Neuts % (Manual) Baso # (Auto) Lymphocytes % (Manual) Monocytes % (Manual) Eosinophils % (Manual) Basophils % (Manual) Seg Neutrophils # Seg Neutrophils # Man Lymphocytes # (Manual) Monocytes # (Manual) Eosinophils # (Manual) Nucleated RBC % Basophils # (Manual) PT INR APTT Heparin Anti-Xa Level ABG pH POC ABG pO2 ABG pO2 ABG HCO3 ABG O2 Saturation ABG Base Excess POC ABG pCO2 ABG Hemoglobin ABG Oxyhemoglobin ABG Chloride ABG Glucose Oxyhemoglobin Sodium Potassium Chloride 95.3 L Carbon Dioxide 33 H BUN 36 H Creatinine Glucose 187 H POC Glucose 116 H Lactic Acid Calcium Phosphorus Magnesium AST ALT Lactate Dehydrogenase Total Bilirubin Direct Bilirubin CK-MB (CK-2) C-Reactive Protein NT-Pro-B Natriuret Pep Total Protein Albumin Arterial Blood Glucose Urine WBC (Auto) Urine Creatinine 57.4 H 02/01/20 02/01/20 02/01/20 05:24 10:40 12:29 WBC RBC Hgb Hct MCHC RDW MCV MCH Lymph % (Auto) [place] % (Auto) [place] # Eos # Lymph # (Auto) [place] # (Auto) Eos # (Auto) Seg Neutrophils % Seg Neuts % (Manual) Baso # (Auto) Lymphocytes % (Manual) Monocytes % (Manual) Eosinophils % (Manual) Basophils % (Manual) Seg Neutrophils # Seg Neutrophils # Man Lymphocytes # (Manual) Monocytes # (Manual) Eosinophils # (Manual) Nucleated RBC % Basophils # (Manual) PT INR APTT Heparin Anti-Xa Level ABG pH POC ABG pO2 ABG pO2 ABG HCO3 ABG O2 Saturation ABG Base Excess POC ABG pCO2 ABG Hemoglobin ABG Oxyhemoglobin ABG Chloride ABG Glucose Oxyhemoglobin Sodium Potassium Chloride Carbon Dioxide BUN Creatinine Glucose POC Glucose 142 H 165 H 151 H Lactic Acid Calcium Phosphorus Magnesium AST ALT Lactate Dehydrogenase Total Bilirubin Direct Bilirubin CK-MB (CK-2) C-Reactive Protein NT-Pro-B Natriuret Pep Total Protein Albumin Arterial Blood Glucose Urine WBC (Auto) Urine Creatinine 02/01/20 02/01/20 02/02/20 17:16 23:23 06:36 WBC RBC Hgb Hct MCHC RDW MCV MCH Lymph % (Auto) [place] % (Auto) [place] # Eos # Lymph # (Auto) [place] # (Auto) Eos # (Auto) Seg Neutrophils % Seg Neuts % (Manual) Baso # (Auto) Lymphocytes % (Manual) Monocytes % (Manual) Eosinophils % (Manual) Basophils % (Manual) Seg Neutrophils # Seg Neutrophils # Man Lymphocytes # (Manual) Monocytes # (Manual) Eosinophils # (Manual) Nucleated RBC % Basophils # (Manual) PT INR APTT Heparin Anti-Xa Level ABG pH POC ABG pO2 ABG pO2 ABG HCO3 ABG O2 Saturation ABG Base Excess POC ABG pCO2 ABG Hemoglobin ABG Oxyhemoglobin ABG Chloride ABG Glucose Oxyhemoglobin Sodium Potassium Chloride Carbon Dioxide BUN Creatinine Glucose POC Glucose 137 H 145 H 181 H Lactic Acid Calcium Phosphorus Magnesium AST ALT Lactate Dehydrogenase Total Bilirubin Direct Bilirubin CK-MB (CK-2) C-Reactive Protein NT-Pro-B Natriuret Pep Total Protein Albumin Arterial Blood Glucose Urine WBC (Auto) Urine Creatinine 02/02/20 02/02/20 02/02/20 10:01 12:05 17:54 WBC RBC Hgb Hct MCHC RDW MCV MCH Lymph % (Auto) [place] % (Auto) [place] # Eos # Lymph # (Auto) [place] # (Auto) Eos # (Auto) Seg Neutrophils % Seg Neuts % (Manual) Baso # (Auto) Lymphocytes % (Manual) Monocytes % (Manual) Eosinophils % (Manual) Basophils % (Manual) Seg Neutrophils # Seg Neutrophils # Man Lymphocytes # (Manual) Monocytes # (Manual) Eosinophils # (Manual) Nucleated RBC % Basophils # (Manual) PT INR APTT Heparin Anti-Xa Level ABG pH POC ABG pO2 ABG pO2 ABG HCO3 ABG O2 Saturation ABG Base Excess POC ABG pCO2 ABG Hemoglobin ABG Oxyhemoglobin ABG Chloride ABG Glucose Oxyhemoglobin Sodium Potassium Chloride 95.3 L Carbon Dioxide BUN 44 H Creatinine Glucose 234 H POC Glucose 184 H 127 H Lactic Acid Calcium Phosphorus Magnesium AST 363 H ALT 457 H Lactate Dehydrogenase Total Bilirubin Direct Bilirubin CK-MB (CK-2) C-Reactive Protein NT-Pro-B Natriuret Pep Total Protein Albumin 3.0 L Arterial Blood Glucose Urine WBC (Auto) Urine Creatinine 02/02/20 02/03/20 02/03/20 23:47 05:32 07:04 WBC 13.0 H RBC Hgb 9.5 L Hct 30.8 L MCHC 31 L RDW 19.6 H MCV 81 L MCH 25 L Lymph % (Auto) [place] % (Auto) 9.4 H [place] # Eos # Lymph # (Auto) [place] # (Auto) 1.2 H Eos # (Auto) Seg Neutrophils % 72.3 H Seg Neuts % (Manual) Baso # (Auto) Lymphocytes % (Manual) Monocytes % (Manual) Eosinophils % (Manual) Basophils % (Manual) Seg Neutrophils # 9.4 H Seg Neutrophils # Man Lymphocytes # (Manual) Monocytes # (Manual) Eosinophils # (Manual) Nucleated RBC % Basophils # (Manual) PT INR APTT Heparin Anti-Xa Level ABG pH POC ABG pO2 ABG pO2 ABG HCO3 ABG O2 Saturation ABG Base Excess POC ABG pCO2 ABG Hemoglobin ABG Oxyhemoglobin ABG Chloride ABG Glucose Oxyhemoglobin Sodium Potassium Chloride Carbon Dioxide BUN Creatinine Glucose POC Glucose 124 H 129 H Lactic Acid Calcium Phosphorus Magnesium AST ALT Lactate Dehydrogenase Total Bilirubin Direct Bilirubin CK-MB (CK-2) C-Reactive Protein NT-Pro-B Natriuret Pep Total Protein Albumin Arterial Blood Glucose Urine WBC (Auto) Urine Creatinine 02/03/20 02/03/20 02/03/20 07:04 11:32 12:49 WBC RBC Hgb Hct MCHC RDW MCV MCH Lymph % (Auto) [place] % (Auto) [place] # Eos # Lymph # (Auto) [place] # (Auto) Eos # (Auto) Seg Neutrophils % Seg Neuts % (Manual) Baso # (Auto) Lymphocytes % (Manual) Monocytes % (Manual) Eosinophils % (Manual) Basophils % (Manual) Seg Neutrophils # Seg Neutrophils # Man Lymphocytes # (Manual) Monocytes # (Manual) Eosinophils # (Manual) Nucleated RBC % Basophils # (Manual) PT INR APTT Heparin Anti-Xa Level ABG pH POC ABG pO2 ABG pO2 ABG HCO3 ABG O2 Saturation ABG Base Excess POC ABG pCO2 ABG Hemoglobin ABG Oxyhemoglobin ABG Chloride ABG Glucose Oxyhemoglobin Sodium Potassium Chloride 97.9 L Carbon Dioxide 33 H BUN 39 H Creatinine Glucose 119 H POC Glucose 138 H Lactic Acid Calcium Phosphorus Magnesium 2.60 H AST ALT Lactate Dehydrogenase Total Bilirubin Direct Bilirubin CK-MB (CK-2) C-Reactive Protein NT-Pro-B Natriuret Pep Total Protein Albumin Arterial Blood Glucose Urine WBC (Auto) Urine Creatinine 02/03/20 02/04/20 02/04/20 18:28 16:24 16:24 WBC RBC 3.38 L Hgb 8.6 L Hct 26.9 L MCHC RDW 19.5 H MCV 80 L MCH 26 L Lymph % (Auto) [place] % (Auto) [place] # Eos # Lymph # (Auto) [place] # (Auto) Eos # (Auto) Seg Neutrophils % Seg Neuts % (Manual) Baso # (Auto) Lymphocytes % (Manual) Monocytes % (Manual) Eosinophils % (Manual) Basophils % (Manual) Seg Neutrophils # Seg Neutrophils # Man Lymphocytes # (Manual) Monocytes # (Manual) Eosinophils # (Manual) Nucleated RBC % Basophils # (Manual) PT INR APTT Heparin Anti-Xa Level ABG pH POC ABG pO2 ABG pO2 ABG HCO3 ABG O2 Saturation ABG Base Excess POC ABG pCO2 ABG Hemoglobin ABG Oxyhemoglobin ABG Chloride ABG Glucose Oxyhemoglobin Sodium Potassium 3.4 L Chloride Carbon Dioxide 31 H BUN 37 H Creatinine Glucose 70 L POC Glucose 118 H Lactic Acid Calcium Phosphorus Magnesium AST 169 H ALT 394 H Lactate Dehydrogenase Total Bilirubin 1.50 H Direct Bilirubin CK-MB (CK-2) C-Reactive Protein NT-Pro-B Natriuret Pep Total Protein Albumin 2.9 L Arterial Blood Glucose Urine WBC (Auto) Urine Creatinine 02/05/20 02/05/20 02/05/20 00:41 06:37 17:14 WBC RBC Hgb Hct MCHC RDW MCV MCH Lymph % (Auto) [place] % (Auto) [place] # Eos # Lymph # (Auto) [place] # (Auto) Eos # (Auto) Seg Neutrophils % Seg Neuts % (Manual) Baso # (Auto) Lymphocytes % (Manual) Monocytes % (Manual) Eosinophils % (Manual) Basophils % (Manual) Seg Neutrophils # Seg Neutrophils # Man Lymphocytes # (Manual) Monocytes # (Manual) Eosinophils # (Manual) Nucleated RBC % Basophils # (Manual) PT INR APTT Heparin Anti-Xa Level ABG pH POC ABG pO2 ABG pO2 ABG HCO3 ABG O2 Saturation ABG Base Excess POC ABG pCO2 ABG Hemoglobin ABG Oxyhemoglobin ABG Chloride ABG Glucose Oxyhemoglobin Sodium Potassium 3.1 L Chloride Carbon Dioxide 35 H BUN 32 H Creatinine 0.7 L Glucose POC Glucose 69 L 127 H Lactic Acid Calcium Phosphorus Magnesium AST 134 H ALT 352 H Lactate Dehydrogenase Total Bilirubin 1.60 H Direct Bilirubin CK-MB (CK-2) C-Reactive Protein NT-Pro-B Natriuret Pep Total Protein Albumin 2.9 L Arterial Blood Glucose Urine WBC (Auto) Urine Creatinine 02/05/20 02/06/20 02/06/20 23:43 05:32 08:01 WBC RBC Hgb Hct MCHC RDW MCV MCH Lymph % (Auto) [place] % (Auto) [place] # Eos # Lymph # (Auto) [place] # (Auto) Eos # (Auto) Seg Neutrophils % Seg Neuts % (Manual) Baso # (Auto) Lymphocytes % (Manual) Monocytes % (Manual) Eosinophils % (Manual) Basophils % (Manual) Seg Neutrophils # Seg Neutrophils # Man Lymphocytes # (Manual) Monocytes # (Manual) Eosinophils # (Manual) Nucleated RBC % Basophils # (Manual) PT INR APTT Heparin Anti-Xa Level ABG pH POC ABG pO2 ABG pO2 ABG HCO3 ABG O2 Saturation ABG Base Excess POC ABG pCO2 ABG Hemoglobin ABG Oxyhemoglobin ABG Chloride ABG Glucose Oxyhemoglobin Sodium Potassium Chloride Carbon Dioxide BUN 40 H Creatinine Glucose 132 H POC Glucose 129 H 131 H Lactic Acid Calcium Phosphorus Magnesium AST ALT Lactate Dehydrogenase Total Bilirubin Direct Bilirubin CK-MB (CK-2) C-Reactive Protein NT-Pro-B Natriuret Pep Total Protein Albumin Arterial Blood Glucose Urine WBC (Auto) Urine Creatinine 02/06/20 02/06/20 02/06/20 11:51 16:28 17:32 WBC RBC Hgb Hct MCHC RDW MCV MCH Lymph % (Auto) [place] % (Auto) [place] # Eos # Lymph # (Auto) [place] # (Auto) Eos # (Auto) Seg Neutrophils % Seg Neuts % (Manual) Baso # (Auto) Lymphocytes % (Manual) Monocytes % (Manual) Eosinophils % (Manual) Basophils % (Manual) Seg Neutrophils # Seg Neutrophils # Man Lymphocytes # (Manual) Monocytes # (Manual) Eosinophils # (Manual) Nucleated RBC % Basophils # (Manual) PT INR APTT Heparin Anti-Xa Level ABG pH POC ABG pO2 ABG pO2 ABG HCO3 ABG O2 Saturation ABG Base Excess POC ABG pCO2 ABG Hemoglobin ABG Oxyhemoglobin ABG Chloride ABG Glucose Oxyhemoglobin Sodium Potassium Chloride Carbon Dioxide BUN Creatinine Glucose POC Glucose 167 H 129 H Lactic Acid Calcium Phosphorus Magnesium AST 824 H ALT 948 H Lactate Dehydrogenase Total Bilirubin 1.70 H Direct Bilirubin 1.2 H CK-MB (CK-2) C-Reactive Protein NT-Pro-B Natriuret Pep Total Protein Albumin 2.9 L Arterial Blood Glucose Urine WBC (Auto) Urine Creatinine 02/07/20 02/07/20 02/07/20 00:11 04:57 04:57 WBC RBC Hgb 9.2 L Hct 29.7 L MCHC 31 L RDW 20.2 H MCV 80 L MCH 25 L Lymph % (Auto) [place] % (Auto) [place] # Eos # Lymph # (Auto) [place] # (Auto) Eos # (Auto) Seg Neutrophils % Seg Neuts % (Manual) Baso # (Auto) Lymphocytes % (Manual) Monocytes % (Manual) Eosinophils % (Manual) Basophils % (Manual) Seg Neutrophils # Seg Neutrophils # Man Lymphocytes # (Manual) Monocytes # (Manual) Eosinophils # (Manual) Nucleated RBC % Basophils # (Manual) PT INR APTT Heparin Anti-Xa Level ABG pH POC ABG pO2 ABG pO2 ABG HCO3 ABG O2 Saturation ABG Base Excess POC ABG pCO2 ABG Hemoglobin ABG Oxyhemoglobin ABG Chloride ABG Glucose Oxyhemoglobin Sodium Potassium 3.4 L D Chloride Carbon Dioxide 32 H BUN 39 H Creatinine Glucose 106 H POC Glucose 121 H Lactic Acid Calcium Phosphorus Magnesium AST ALT Lactate Dehydrogenase Total Bilirubin Direct Bilirubin CK-MB (CK-2) C-Reactive Protein NT-Pro-B Natriuret Pep Total Protein Albumin Arterial Blood Glucose Urine WBC (Auto) Urine Creatinine 02/07/20 02/07/2002/06/20 15:03 15:03 17:11 WBC RBC Hgb Hct MCHC RDW MCV MCH Lymph % (Auto) [place] % (Auto) [place] # Eos # Lymph # (Auto) [place] # (Auto) Eos # (Auto) Seg Neutrophils % Seg Neuts % (Manual) Baso # (Auto) Lymphocytes % (Manual) Monocytes % (Manual) Eosinophils % (Manual) Basophils % (Manual) Seg Neutrophils # Seg Neutrophils # Man Lymphocytes # (Manual) Monocytes # (Manual) Eosinophils # (Manual) Nucleated RBC % Basophils # (Manual) PT 27.0 H INR 2.46 H APTT Heparin Anti-Xa Level ABG pH POC ABG pO2 ABG pO2 ABG HCO3 ABG O2 Saturation ABG Base Excess POC ABG pCO2 ABG Hemoglobin ABG Oxyhemoglobin ABG Chloride ABG Glucose Oxyhemoglobin Sodium Potassium Chloride Carbon Dioxide BUN Creatinine Glucose POC Glucose 109 H Lactic Acid Calcium Phosphorus Magnesium AST 424 H ALT 796 H Lactate Dehydrogenase Total Bilirubin 1.60 H Direct Bilirubin 1.2 H CK-MB (CK-2) C-Reactive Protein NT-Pro-B Natriuret Pep Total Protein Albumin 2.9 L Arterial Blood Glucose Urine WBC (Auto) Urine Creatinine 02/08/20 02/08/20 02/08/20 12:14 17:44 19:00 WBC RBC Hgb Hct MCHC RDW MCV MCH Lymph % (Auto) [place] % (Auto) [place] # Eos # Lymph # (Auto) [place] # (Auto) Eos # (Auto) Seg Neutrophils % Seg Neuts % (Manual) Baso # (Auto) Lymphocytes % (Manual) Monocytes % (Manual) Eosinophils % (Manual) Basophils % (Manual) Seg Neutrophils # Seg Neutrophils # Man Lymphocytes # (Manual) Monocytes # (Manual) Eosinophils # (Manual) Nucleated RBC % Basophils # (Manual) PT INR APTT Heparin Anti-Xa Level ABG pH POC ABG pO2 ABG pO2 ABG HCO3 ABG O2 Saturation ABG Base Excess POC ABG pCO2 ABG Hemoglobin ABG Oxyhemoglobin ABG Chloride ABG Glucose Oxyhemoglobin Sodium Potassium Chloride Carbon Dioxide BUN Creatinine Glucose POC Glucose 111 H 107 H Lactic Acid Calcium Phosphorus Magnesium AST 309 H ALT 650 H Lactate Dehydrogenase Total Bilirubin 1.30 H Direct Bilirubin 0.9 H CK-MB (CK-2) C-Reactive Protein NT-Pro-B Natriuret Pep Total Protein 6.2 L Albumin 2.7 L Arterial Blood Glucose Urine WBC (Auto) Urine Creatinine 02/09/20 02/09/20 02/09/20 05:41 12:28 18:07 WBC RBC Hgb Hct MCHC RDW MCV MCH Lymph % (Auto) [place] % (Auto) [place] # Eos # Lymph # (Auto) [place] # (Auto) Eos # (Auto) Seg Neutrophils % Seg Neuts % (Manual) Baso # (Auto) Lymphocytes % (Manual) Monocytes % (Manual) Eosinophils % (Manual) Basophils % (Manual) Seg Neutrophils # Seg Neutrophils # Man Lymphocytes # (Manual) Monocytes # (Manual) Eosinophils # (Manual) Nucleated RBC % Basophils # (Manual) PT INR APTT Heparin Anti-Xa Level ABG pH POC ABG pO2 ABG pO2 ABG HCO3 ABG O2 Saturation ABG Base Excess POC ABG pCO2 ABG Hemoglobin ABG Oxyhemoglobin ABG Chloride ABG Glucose Oxyhemoglobin Sodium Potassium Chloride Carbon Dioxide BUN Creatinine Glucose POC Glucose 113 H 140 H 143 H Lactic Acid Calcium Phosphorus Magnesium AST ALT Lactate Dehydrogenase Total Bilirubin Direct Bilirubin CK-MB (CK-2) C-Reactive Protein NT-Pro-B Natriuret Pep Total Protein Albumin Arterial Blood Glucose Urine WBC (Auto) Urine Creatinine 02/09/20 02/09/20 02/10/20 21:40 23:45 06:00 WBC RBC Hgb Hct MCHC RDW MCV MCH Lymph % (Auto) [place] % (Auto) [place] # Eos # Lymph # (Auto) [place] # (Auto) Eos # (Auto) Seg Neutrophils % Seg Neuts % (Manual) Baso # (Auto) Lymphocytes % (Manual) Monocytes % (Manual) Eosinophils % (Manual) Basophils % (Manual) Seg Neutrophils # Seg Neutrophils # Man Lymphocytes # (Manual) Monocytes # (Manual) Eosinophils # (Manual) Nucleated RBC % Basophils # (Manual) PT INR APTT Heparin Anti-Xa Level ABG pH POC ABG pO2 ABG pO2 59.8 L ABG HCO3 33.3 H ABG O2 Saturation 88.9 L ABG Base Excess 7.4 H POC ABG pCO2 ABG Hemoglobin 10.4 L ABG Oxyhemoglobin ABG Chloride ABG Glucose Oxyhemoglobin 86.3 L Sodium Potassium Chloride Carbon Dioxide BUN Creatinine Glucose POC Glucose 127 H 114 H Lactic Acid Calcium Phosphorus Magnesium AST ALT Lactate Dehydrogenase Total Bilirubin Direct Bilirubin CK-MB (CK-2) C-Reactive Protein NT-Pro-B Natriuret Pep Total Protein Albumin Arterial Blood Glucose Urine WBC (Auto) Urine Creatinine 02/10/20 02/10/20 02/10/20 07:40 07:40 13:38 WBC 11.5 H RBC Hgb 10.6 L Hct 34.7 L MCHC 31 L RDW 19.8 H MCV 79 L MCH 24 L Lymph % (Auto) [place] % (Auto) 9.2 H [place] # Eos # Lymph # (Auto) [place] # (Auto) 1.1 H Eos # (Auto) Seg Neutrophils % Seg Neuts % (Manual) Baso # (Auto) Lymphocytes % (Manual) Monocytes % (Manual) Eosinophils % (Manual) Basophils % (Manual) Seg Neutrophils # Seg Neutrophils # Man Lymphocytes # (Manual) Monocytes # (Manual) Eosinophils # (Manual) Nucleated RBC % Basophils # (Manual) PT INR APTT Heparin Anti-Xa Level ABG pH POC ABG pO2 ABG pO2 ABG HCO3 ABG O2 Saturation ABG Base Excess POC ABG pCO2 ABG Hemoglobin ABG Oxyhemoglobin ABG Chloride ABG Glucose Oxyhemoglobin Sodium 151 H Potassium Chloride 107.2 H Carbon Dioxide 36 H BUN 25 H Creatinine 0.7 L Glucose 114 H POC Glucose 116 H Lactic Acid Calcium Phosphorus Magnesium 2.40 H AST ALT Lactate Dehydrogenase Total Bilirubin Direct Bilirubin CK-MB (CK-2) C-Reactive Protein NT-Pro-B Natriuret Pep Total Protein Albumin Arterial Blood Glucose Urine WBC (Auto) Urine Creatinine 02/10/20 02/11/20 02/11/20 17:44 05:47 12:21 WBC RBC Hgb Hct MCHC RDW MCV MCH Lymph % (Auto) [place] % (Auto) [place] # Eos # Lymph # (Auto) [place] # (Auto) Eos # (Auto) Seg Neutrophils % Seg Neuts % (Manual) Baso # (Auto) Lymphocytes % (Manual) Monocytes % (Manual) Eosinophils % (Manual) Basophils % (Manual) Seg Neutrophils # Seg Neutrophils # Man Lymphocytes # (Manual) Monocytes # (Manual) Eosinophils # (Manual) Nucleated RBC % Basophils # (Manual) PT INR APTT Heparin Anti-Xa Level ABG pH POC ABG pO2 ABG pO2 ABG HCO3 ABG O2 Saturation ABG Base Excess POC ABG pCO2 ABG Hemoglobin ABG Oxyhemoglobin ABG Chloride ABG Glucose Oxyhemoglobin Sodium Potassium Chloride Carbon Dioxide BUN Creatinine Glucose POC Glucose 139 H 173 H 143 H Lactic Acid Calcium Phosphorus Magnesium AST ALT Lactate Dehydrogenase Total Bilirubin Direct Bilirubin CK-MB (CK-2) C-Reactive Protein NT-Pro-B Natriuret Pep Total Protein Albumin Arterial Blood Glucose Urine WBC (Auto) Urine Creatinine 02/11/20 02/11/20 02/12/20 13:43 14:11 00:15 WBC RBC Hgb Hct MCHC RDW MCV MCH Lymph % (Auto) [place] % (Auto) [place] # Eos # Lymph # (Auto) [place] # (Auto) Eos # (Auto) Seg Neutrophils % Seg Neuts % (Manual) Baso # (Auto) Lymphocytes % (Manual) Monocytes % (Manual) Eosinophils % (Manual) Basophils % (Manual) Seg Neutrophils # Seg Neutrophils # Man Lymphocytes # (Manual) Monocytes # (Manual) Eosinophils # (Manual) Nucleated RBC % Basophils # (Manual) PT INR APTT Heparin Anti-Xa Level ABG pH 7.502 H POC ABG pO2 77.7 L ABG pO2 ABG HCO3 ABG O2 Saturation ABG Base Excess POC ABG pCO2 ABG Hemoglobin 11.1 L ABG Oxyhemoglobin ABG Chloride 108.0 H ABG Glucose 151 H Oxyhemoglobin Sodium Potassium Chloride Carbon Dioxide BUN Creatinine Glucose POC Glucose 130 H 125 H Lactic Acid Calcium Phosphorus Magnesium AST ALT Lactate Dehydrogenase Total Bilirubin Direct Bilirubin CK-MB (CK-2) C-Reactive Protein NT-Pro-B Natriuret Pep Total Protein Albumin Arterial Blood Glucose 151 H Urine WBC (Auto) Urine Creatinine 02/12/20 02/12/20 02/12/20 04:56 04:56 17:42 WBC RBC Hgb 9.9 L Hct 31.8 L MCHC 31 L RDW 19.4 H MCV 79 L MCH 25 L Lymph % (Auto) [place] % (Auto) 10.3 H [place] # Eos # Lymph # (Auto) [place] # (Auto) 1.0 H Eos # (Auto) Seg Neutrophils % Seg Neuts % (Manual) Baso # (Auto) Lymphocytes % (Manual) Monocytes % (Manual) Eosinophils % (Manual) Basophils % (Manual) Seg Neutrophils # Seg Neutrophils # Man Lymphocytes # (Manual) Monocytes # (Manual) Eosinophils # (Manual) Nucleated RBC % Basophils # (Manual) PT INR APTT Heparin Anti-Xa Level ABG pH POC ABG pO2 ABG pO2 ABG HCO3 ABG O2 Saturation ABG Base Excess POC ABG pCO2 ABG Hemoglobin ABG Oxyhemoglobin ABG Chloride ABG Glucose Oxyhemoglobin Sodium 149 H Potassium Chloride 108.6 H Carbon Dioxide BUN 28 H Creatinine 0.7 L Glucose 108 H POC Glucose 113 H Lactic Acid Calcium Phosphorus Magnesium AST ALT Lactate Dehydrogenase Total Bilirubin Direct Bilirubin CK-MB (CK-2) C-Reactive Protein NT-Pro-B Natriuret Pep Total Protein Albumin Arterial Blood Glucose Urine WBC (Auto) Urine Creatinine 02/13/20 02/13/20 02/13/20 00:39 05:36 12:25 WBC RBC Hgb Hct MCHC RDW MCV MCH Lymph % (Auto) [place] % (Auto) [place] # Eos # Lymph # (Auto) [place] # (Auto) Eos # (Auto) Seg Neutrophils % Seg Neuts % (Manual) Baso # (Auto) Lymphocytes % (Manual) Monocytes % (Manual) Eosinophils % (Manual) Basophils % (Manual) Seg Neutrophils # Seg Neutrophils # Man Lymphocytes # (Manual) Monocytes # (Manual) Eosinophils # (Manual) Nucleated RBC % Basophils # (Manual) PT INR APTT Heparin Anti-Xa Level ABG pH POC ABG pO2 ABG pO2 ABG HCO3 ABG O2 Saturation ABG Base Excess POC ABG pCO2 ABG Hemoglobin ABG Oxyhemoglobin ABG Chloride ABG Glucose Oxyhemoglobin Sodium Potassium Chloride Carbon Dioxide BUN Creatinine Glucose POC Glucose 129 H 126 H 129 H Lactic Acid Calcium Phosphorus Magnesium AST ALT Lactate Dehydrogenase Total Bilirubin Direct Bilirubin CK-MB (CK-2) C-Reactive Protein NT-Pro-B Natriuret Pep Total Protein Albumin Arterial Blood Glucose Urine WBC (Auto) Urine Creatinine 02/13/20 02/14/20 02/14/20 17:59 00:15 05:41 WBC RBC Hgb Hct MCHC RDW MCV MCH Lymph % (Auto) [place] % (Auto) [place] # Eos # Lymph # (Auto) [place] # (Auto) Eos # (Auto) Seg Neutrophils % Seg Neuts % (Manual) Baso # (Auto) Lymphocytes % (Manual) Monocytes % (Manual) Eosinophils % (Manual) Basophils % (Manual) Seg Neutrophils # Seg Neutrophils # Man Lymphocytes # (Manual) Monocytes # (Manual) Eosinophils # (Manual) Nucleated RBC % Basophils # (Manual) PT INR APTT Heparin Anti-Xa Level ABG pH POC ABG pO2 ABG pO2 ABG HCO3 ABG O2 Saturation ABG Base Excess POC ABG pCO2 ABG Hemoglobin ABG Oxyhemoglobin ABG Chloride ABG Glucose Oxyhemoglobin Sodium Potassium Chloride Carbon Dioxide BUN Creatinine Glucose POC Glucose 153 H 130 H 130 H Lactic Acid Calcium Phosphorus Magnesium AST ALT Lactate Dehydrogenase Total Bilirubin Direct Bilirubin CK-MB (CK-2) C-Reactive Protein NT-Pro-B Natriuret Pep Total Protein Albumin Arterial Blood Glucose Urine WBC (Auto) Urine Creatinine 02/14/20 02/15/20 02/15/20 11:32 00:12 05:27 WBC RBC Hgb Hct MCHC RDW MCV MCH Lymph % (Auto) [place] % (Auto) [place] # Eos # Lymph # (Auto) [place] # (Auto) Eos # (Auto) Seg Neutrophils % Seg Neuts % (Manual) Baso # (Auto) Lymphocytes % (Manual) Monocytes % (Manual) Eosinophils % (Manual) Basophils % (Manual) Seg Neutrophils # Seg Neutrophils # Man Lymphocytes # (Manual) Monocytes # (Manual) Eosinophils # (Manual) Nucleated RBC % Basophils # (Manual) PT INR APTT Heparin Anti-Xa Level ABG pH POC ABG pO2 ABG pO2 ABG HCO3 ABG O2 Saturation ABG Base Excess POC ABG pCO2 ABG Hemoglobin ABG Oxyhemoglobin ABG Chloride ABG Glucose Oxyhemoglobin Sodium Potassium Chloride Carbon Dioxide BUN Creatinine Glucose POC Glucose 157 H 124 H 111 H Lactic Acid Calcium Phosphorus Magnesium AST ALT Lactate Dehydrogenase Total Bilirubin Direct Bilirubin CK-MB (CK-2) C-Reactive Protein NT-Pro-B Natriuret Pep Total Protein Albumin Arterial Blood Glucose Urine WBC (Auto) Urine Creatinine 02/15/20 02/15/20 02/15/20 06:59 06:59 11:14 WBC RBC Hgb 10.4 L Hct 33.7 L MCHC 31 L RDW 19.4 H MCV 80 L MCH 24 L Lymph % (Auto) [place] % (Auto) [place] # Eos # Lymph # (Auto) [place] # (Auto) Eos # (Auto) Seg Neutrophils % Seg Neuts % (Manual) Baso # (Auto) Lymphocytes % (Manual) Monocytes % (Manual) Eosinophils % (Manual) Basophils % (Manual) 2.0 H Seg Neutrophils # Seg Neutrophils # Man Lymphocytes # (Manual) Monocytes # (Manual) Eosinophils # (Manual) Nucleated RBC % 1.0 H Basophils # (Manual) 0.2 H PT INR APTT Heparin Anti-Xa Level ABG pH POC ABG pO2 ABG pO2 ABG HCO3 ABG O2 Saturation ABG Base Excess POC ABG pCO2 ABG Hemoglobin ABG Oxyhemoglobin ABG Chloride ABG Glucose Oxyhemoglobin Sodium 149 H Potassium Chloride 108.4 H Carbon Dioxide 31 H BUN 40 H Creatinine 0.7 L Glucose 150 H POC Glucose 128 H Lactic Acid Calcium Phosphorus Magnesium AST ALT Lactate Dehydrogenase Total Bilirubin Direct Bilirubin CK-MB (CK-2) C-Reactive Protein NT-Pro-B Natriuret Pep Total Protein Albumin Arterial Blood Glucose Urine WBC (Auto) Urine Creatinine 02/15/20 02/15/20 02/16/20 17:46 23:50 05:03 WBC RBC Hgb Hct MCHC RDW MCV MCH Lymph % (Auto) [place] % (Auto) [place] # Eos # Lymph # (Auto) [place] # (Auto) Eos # (Auto) Seg Neutrophils % Seg Neuts % (Manual) Baso # (Auto) Lymphocytes % (Manual) Monocytes % (Manual) Eosinophils % (Manual) Basophils % (Manual) Seg Neutrophils # Seg Neutrophils # Man Lymphocytes # (Manual) Monocytes # (Manual) Eosinophils # (Manual) Nucleated RBC % Basophils # (Manual) PT INR APTT Heparin Anti-Xa Level ABG pH POC ABG pO2 ABG pO2 ABG HCO3 ABG O2 Saturation ABG Base Excess POC ABG pCO2 ABG Hemoglobin ABG Oxyhemoglobin ABG Chloride ABG Glucose Oxyhemoglobin Sodium Potassium Chloride Carbon Dioxide BUN Creatinine Glucose POC Glucose 154 H 135 H 148 H Lactic Acid Calcium Phosphorus Magnesium AST ALT Lactate Dehydrogenase Total Bilirubin Direct Bilirubin CK-MB (CK-2) C-Reactive Protein NT-Pro-B Natriuret Pep Total Protein Albumin Arterial Blood Glucose Urine WBC (Auto) Urine Creatinine 02/16/20 02/16/20 02/16/20 07:53 11:28 17:52 WBC RBC Hgb Hct MCHC RDW MCV MCH Lymph % (Auto) [place] % (Auto) [place] # Eos # Lymph # (Auto) [place] # (Auto) Eos # (Auto) Seg Neutrophils % Seg Neuts % (Manual) Baso # (Auto) Lymphocytes % (Manual) Monocytes % (Manual) Eosinophils % (Manual) Basophils % (Manual) Seg Neutrophils # Seg Neutrophils # Man Lymphocytes # (Manual) Monocytes # (Manual) Eosinophils # (Manual) Nucleated RBC % Basophils # (Manual) PT INR APTT Heparin Anti-Xa Level ABG pH POC ABG pO2 ABG pO2 ABG HCO3 ABG O2 Saturation ABG Base Excess POC ABG pCO2 ABG Hemoglobin ABG Oxyhemoglobin ABG Chloride ABG Glucose Oxyhemoglobin Sodium Potassium Chloride 107.9 H Carbon Dioxide BUN 38 H Creatinine 0.6 L Glucose 151 H POC Glucose 123 H 152 H Lactic Acid Calcium Phosphorus Magnesium AST ALT Lactate Dehydrogenase Total Bilirubin Direct Bilirubin CK-MB (CK-2) C-Reactive Protein NT-Pro-B Natriuret Pep Total Protein Albumin Arterial Blood Glucose Urine WBC (Auto) Urine Creatinine 02/16/20 02/17/20 02/17/20 23:49 06:24 11:36 WBC RBC Hgb Hct MCHC RDW MCV MCH Lymph % (Auto) [place] % (Auto) [place] # Eos # Lymph # (Auto) [place] # (Auto) Eos # (Auto) Seg Neutrophils % Seg Neuts % (Manual) Baso # (Auto) Lymphocytes % (Manual) Monocytes % (Manual) Eosinophils % (Manual) Basophils % (Manual) Seg Neutrophils # Seg Neutrophils # Man Lymphocytes # (Manual) Monocytes # (Manual) Eosinophils # (Manual) Nucleated RBC % Basophils # (Manual) PT INR APTT Heparin Anti-Xa Level ABG pH POC ABG pO2 ABG pO2 ABG HCO3 ABG O2 Saturation ABG Base Excess POC ABG pCO2 ABG Hemoglobin ABG Oxyhemoglobin ABG Chloride ABG Glucose Oxyhemoglobin Sodium Potassium Chloride Carbon Dioxide BUN Creatinine Glucose POC Glucose 156 H 193 H 162 H Lactic Acid Calcium Phosphorus Magnesium AST ALT Lactate Dehydrogenase Total Bilirubin Direct Bilirubin CK-MB (CK-2) C-Reactive Protein NT-Pro-B Natriuret Pep Total Protein Albumin Arterial Blood Glucose Urine WBC (Auto) Urine Creatinine 02/17/20 02/17/20 02/18/20 17:55 23:28 05:11 WBC RBC Hgb Hct MCHC RDW MCV MCH Lymph % (Auto) [place] % (Auto) [place] # Eos # Lymph # (Auto) [place] # (Auto) Eos # (Auto) Seg Neutrophils % Seg Neuts % (Manual) Baso # (Auto) Lymphocytes % (Manual) Monocytes % (Manual) Eosinophils % (Manual) Basophils % (Manual) Seg Neutrophils # Seg Neutrophils # Man Lymphocytes # (Manual) Monocytes # (Manual) Eosinophils # (Manual) Nucleated RBC % Basophils # (Manual) PT INR APTT Heparin Anti-Xa Level ABG pH POC ABG pO2 ABG pO2 ABG HCO3 ABG O2 Saturation ABG Base Excess POC ABG pCO2 ABG Hemoglobin ABG Oxyhemoglobin ABG Chloride ABG Glucose Oxyhemoglobin Sodium Potassium Chloride Carbon Dioxide BUN Creatinine Glucose POC Glucose 165 H 146 H 122 H Lactic Acid Calcium Phosphorus Magnesium AST ALT Lactate Dehydrogenase Total Bilirubin Direct Bilirubin CK-MB (CK-2) C-Reactive Protein NT-Pro-B Natriuret Pep Total Protein Albumin Arterial Blood Glucose Urine WBC (Auto) Urine Creatinine 02/18/20 02/18/20 02/19/20 12:24 17:29 00:01 WBC RBC Hgb Hct MCHC RDW MCV MCH Lymph % (Auto) [place] % (Auto) [place] # Eos # Lymph # (Auto) [place] # (Auto) Eos # (Auto) Seg Neutrophils % Seg Neuts % (Manual) Baso # (Auto) Lymphocytes % (Manual) Monocytes % (Manual) Eosinophils % (Manual) Basophils % (Manual) Seg Neutrophils # Seg Neutrophils # Man Lymphocytes # (Manual) Monocytes # (Manual) Eosinophils # (Manual) Nucleated RBC % Basophils # (Manual) PT INR APTT Heparin Anti-Xa Level ABG pH POC ABG pO2 ABG pO2 ABG HCO3 ABG O2 Saturation ABG Base Excess POC ABG pCO2 ABG Hemoglobin ABG Oxyhemoglobin ABG Chloride ABG Glucose Oxyhemoglobin Sodium Potassium Chloride Carbon Dioxide BUN Creatinine Glucose POC Glucose 162 H 136 H 145 H Lactic Acid Calcium Phosphorus Magnesium AST ALT Lactate Dehydrogenase Total Bilirubin Direct Bilirubin CK-MB (CK-2) C-Reactive Protein NT-Pro-B Natriuret Pep Total Protein Albumin Arterial Blood Glucose Urine WBC (Auto) Urine Creatinine 02/19/20 02/19/20 02/19/20 05:53 11:44 17:32 WBC RBC Hgb Hct MCHC RDW MCV MCH Lymph % (Auto) [place] % (Auto) [place] # Eos # Lymph # (Auto) [place] # (Auto) Eos # (Auto) Seg Neutrophils % Seg Neuts % (Manual) Baso # (Auto) Lymphocytes % (Manual) Monocytes % (Manual) Eosinophils % (Manual) Basophils % (Manual) Seg Neutrophils # Seg Neutrophils # Man Lymphocytes # (Manual) Monocytes # (Manual) Eosinophils # (Manual) Nucleated RBC % Basophils # (Manual) PT INR APTT Heparin Anti-Xa Level ABG pH POC ABG pO2 ABG pO2 ABG HCO3 ABG O2 Saturation ABG Base Excess POC ABG pCO2 ABG Hemoglobin ABG Oxyhemoglobin ABG Chloride ABG Glucose Oxyhemoglobin Sodium Potassium Chloride Carbon Dioxide BUN Creatinine Glucose POC Glucose 116 H 120 H 154 H Lactic Acid Calcium Phosphorus Magnesium AST ALT Lactate Dehydrogenase Total Bilirubin Direct Bilirubin CK-MB (CK-2) C-Reactive Protein NT-Pro-B Natriuret Pep Total Protein Albumin Arterial Blood Glucose Urine WBC (Auto) Urine Creatinine 02/19/20 02/20/20 02/20/20 23:43 00:24 00:24 WBC RBC Hgb 9.4 L Hct 30.0 L MCHC 31 L RDW 20.4 H MCV 79 L MCH 25 L Lymph % (Auto) [place] % (Auto) 8.5 H [place] # Eos # Lymph # (Auto) [place] # (Auto) Eos # (Auto) Seg Neutrophils % Seg Neuts % (Manual) Baso # (Auto) Lymphocytes % (Manual) Monocytes % (Manual) Eosinophils % (Manual) Basophils % (Manual) Seg Neutrophils # Seg Neutrophils # Man Lymphocytes # (Manual) Monocytes # (Manual) Eosinophils # (Manual) Nucleated RBC % Basophils # (Manual) PT INR APTT Heparin Anti-Xa Level ABG pH POC ABG pO2 ABG pO2 ABG HCO3 ABG O2 Saturation ABG Base Excess POC ABG pCO2 ABG Hemoglobin ABG Oxyhemoglobin ABG Chloride ABG Glucose Oxyhemoglobin Sodium 147 H Potassium 3.4 L Chloride Carbon Dioxide 31 H BUN 34 H Creatinine 0.5 L Glucose 135 H POC Glucose 122 H Lactic Acid Calcium Phosphorus Magnesium AST ALT Lactate Dehydrogenase Total Bilirubin Direct Bilirubin CK-MB (CK-2) C-Reactive Protein NT-Pro-B Natriuret Pep Total Protein Albumin Arterial Blood Glucose Urine WBC (Auto) Urine Creatinine 02/20/20 02/20/20 02/20/20 06:07 06:45 12:03 WBC RBC Hgb Hct MCHC RDW MCV MCH Lymph % (Auto) [place] % (Auto) [place] # Eos # Lymph # (Auto) [place] # (Auto) Eos # (Auto) Seg Neutrophils % Seg Neuts % (Manual) Baso # (Auto) Lymphocytes % (Manual) Monocytes % (Manual) Eosinophils % (Manual) Basophils % (Manual) Seg Neutrophils # Seg Neutrophils # Man Lymphocytes # (Manual) Monocytes # (Manual) Eosinophils # (Manual) Nucleated RBC % Basophils # (Manual) PT INR APTT Heparin Anti-Xa Level ABG pH 7.461 H POC ABG pO2 ABG pO2 ABG HCO3 33.3 H ABG O2 Saturation ABG Base Excess 8.4 H POC ABG pCO2 ABG Hemoglobin 10.0 L ABG Oxyhemoglobin ABG Chloride ABG Glucose Oxyhemoglobin 94.1 L Sodium Potassium Chloride Carbon Dioxide BUN Creatinine Glucose POC Glucose 109 H 128 H Lactic Acid Calcium Phosphorus Magnesium AST ALT Lactate Dehydrogenase Total Bilirubin Direct Bilirubin CK-MB (CK-2) C-Reactive Protein NT-Pro-B Natriuret Pep Total Protein Albumin Arterial Blood Glucose Urine WBC (Auto) Urine Creatinine 02/20/20 02/20/20 02/21/20 18:02 23:55 05:42 WBC RBC Hgb Hct MCHC RDW MCV MCH Lymph % (Auto) [place] % (Auto) [place] # Eos # Lymph # (Auto) [place] # (Auto) Eos # (Auto) Seg Neutrophils % Seg Neuts % (Manual) Baso # (Auto) Lymphocytes % (Manual) Monocytes % (Manual) Eosinophils % (Manual) Basophils % (Manual) Seg Neutrophils # Seg Neutrophils # Man Lymphocytes # (Manual) Monocytes # (Manual) Eosinophils # (Manual) Nucleated RBC % Basophils # (Manual) PT INR APTT Heparin Anti-Xa Level ABG pH POC ABG pO2 ABG pO2 ABG HCO3 ABG O2 Saturation ABG Base Excess POC ABG pCO2 ABG Hemoglobin ABG Oxyhemoglobin ABG Chloride ABG Glucose Oxyhemoglobin Sodium Potassium Chloride Carbon Dioxide BUN Creatinine Glucose POC Glucose 118 H 125 H 127 H Lactic Acid Calcium Phosphorus Magnesium AST ALT Lactate Dehydrogenase Total Bilirubin Direct Bilirubin CK-MB (CK-2) C-Reactive Protein NT-Pro-B Natriuret Pep Total Protein Albumin Arterial Blood Glucose Urine WBC (Auto) Urine Creatinine 02/21/20 02/21/20 02/21/20 12:10 17:35 23:40 WBC RBC Hgb Hct MCHC RDW MCV MCH Lymph % (Auto) [place] % (Auto) [place] # Eos # Lymph # (Auto) [place] # (Auto) Eos # (Auto) Seg Neutrophils % Seg Neuts % (Manual) Baso # (Auto) Lymphocytes % (Manual) Monocytes % (Manual) Eosinophils % (Manual) Basophils % (Manual) Seg Neutrophils # Seg Neutrophils # Man Lymphocytes # (Manual) Monocytes # (Manual) Eosinophils # (Manual) Nucleated RBC % Basophils # (Manual) PT INR APTT Heparin Anti-Xa Level ABG pH POC ABG pO2 ABG pO2 ABG HCO3 ABG O2 Saturation ABG Base Excess POC ABG pCO2 ABG Hemoglobin ABG Oxyhemoglobin ABG Chloride ABG Glucose Oxyhemoglobin Sodium Potassium Chloride Carbon Dioxide BUN Creatinine Glucose POC Glucose 128 H 113 H 125 H Lactic Acid Calcium Phosphorus Magnesium AST ALT Lactate Dehydrogenase Total Bilirubin Direct Bilirubin CK-MB (CK-2) C-Reactive Protein NT-Pro-B Natriuret Pep Total Protein Albumin Arterial Blood Glucose Urine WBC (Auto) Urine Creatinine 02/22/20 02/22/20 02/22/20 05:57 08:06 08:06 WBC RBC Hgb 10.8 L Hct 35.2 L MCHC 31 L RDW 21.8 H MCV 80 L MCH 25 L Lymph % (Auto) [place] % (Auto) [place] # Eos # Lymph # (Auto) [place] # (Auto) Eos # (Auto) Seg Neutrophils % 71.5 H Seg Neuts % (Manual) Baso # (Auto) Lymphocytes % (Manual) Monocytes % (Manual) Eosinophils % (Manual) Basophils % (Manual) Seg Neutrophils # Seg Neutrophils # Man Lymphocytes # (Manual) Monocytes # (Manual) Eosinophils # (Manual) Nucleated RBC % Basophils # (Manual) PT INR APTT Heparin Anti-Xa Level ABG pH POC ABG pO2 ABG pO2 ABG HCO3 ABG O2 Saturation ABG Base Excess POC ABG pCO2 ABG Hemoglobin ABG Oxyhemoglobin ABG Chloride ABG Glucose Oxyhemoglobin Sodium 146 H Potassium Chloride Carbon Dioxide 34 H BUN 21 H Creatinine 0.4 L Glucose 149 H POC Glucose 138 H Lactic Acid Calcium Phosphorus Magnesium AST ALT Lactate Dehydrogenase Total Bilirubin Direct Bilirubin CK-MB (CK-2) C-Reactive Protein NT-Pro-B Natriuret Pep Total Protein Albumin Arterial Blood Glucose Urine WBC (Auto) Urine Creatinine 02/22/20 02/22/20 02/22/20 11:47 17:11 23:25 WBC RBC Hgb Hct MCHC RDW MCV MCH Lymph % (Auto) [place] % (Auto) [place] # Eos # Lymph # (Auto) [place] # (Auto) Eos # (Auto) Seg Neutrophils % Seg Neuts % (Manual) Baso # (Auto) Lymphocytes % (Manual) Monocytes % (Manual) Eosinophils % (Manual) Basophils % (Manual) Seg Neutrophils # Seg Neutrophils # Man Lymphocytes # (Manual) Monocytes # (Manual) Eosinophils # (Manual) Nucleated RBC % Basophils # (Manual) PT INR APTT Heparin Anti-Xa Level ABG pH POC ABG pO2 ABG pO2 ABG HCO3 ABG O2 Saturation ABG Base Excess POC ABG pCO2 ABG Hemoglobin ABG Oxyhemoglobin ABG Chloride ABG Glucose Oxyhemoglobin Sodium Potassium Chloride Carbon Dioxide BUN Creatinine Glucose POC Glucose 149 H 144 H 142 H Lactic Acid Calcium Phosphorus Magnesium AST ALT Lactate Dehydrogenase Total Bilirubin Direct Bilirubin CK-MB (CK-2) C-Reactive Protein NT-Pro-B Natriuret Pep Total Protein Albumin Arterial Blood Glucose Urine WBC (Auto) Urine Creatinine 02/23/20 02/23/20 02/23/20 05:22 11:37 18:14 WBC RBC Hgb Hct MCHC RDW MCV MCH Lymph % (Auto) [place] % (Auto) [place] # Eos # Lymph # (Auto) [place] # (Auto) Eos # (Auto) Seg Neutrophils % Seg Neuts % (Manual) Baso # (Auto) Lymphocytes % (Manual) Monocytes % (Manual) Eosinophils % (Manual) Basophils % (Manual) Seg Neutrophils # Seg Neutrophils # Man Lymphocytes # (Manual) Monocytes # (Manual) Eosinophils # (Manual) Nucleated RBC % Basophils # (Manual) PT INR APTT Heparin Anti-Xa Level ABG pH POC ABG pO2 ABG pO2 ABG HCO3 ABG O2 Saturation ABG Base Excess POC ABG pCO2 ABG Hemoglobin ABG Oxyhemoglobin ABG Chloride ABG Glucose Oxyhemoglobin Sodium Potassium Chloride Carbon Dioxide BUN Creatinine Glucose POC Glucose 144 H 113 H 127 H Lactic Acid Calcium Phosphorus Magnesium AST ALT Lactate Dehydrogenase Total Bilirubin Direct Bilirubin CK-MB (CK-2) C-Reactive Protein NT-Pro-B Natriuret Pep Total Protein Albumin Arterial Blood Glucose Urine WBC (Auto) Urine Creatinine 02/23/20 02/24/20 02/24/20 23:45 05:50 11:24 WBC RBC Hgb Hct MCHC RDW MCV MCH Lymph % (Auto) [place] % (Auto) [place] # Eos # Lymph # (Auto) [place] # (Auto) Eos # (Auto) Seg Neutrophils % Seg Neuts % (Manual) Baso # (Auto) Lymphocytes % (Manual) Monocytes % (Manual) Eosinophils % (Manual) Basophils % (Manual) Seg Neutrophils # Seg Neutrophils # Man Lymphocytes # (Manual) Monocytes # (Manual) Eosinophils # (Manual) Nucleated RBC % Basophils # (Manual) PT INR APTT Heparin Anti-Xa Level ABG pH POC ABG pO2 ABG pO2 ABG HCO3 ABG O2 Saturation ABG Base Excess POC ABG pCO2 ABG Hemoglobin ABG Oxyhemoglobin ABG Chloride ABG Glucose Oxyhemoglobin Sodium Potassium Chloride Carbon Dioxide BUN Creatinine Glucose POC Glucose 123 H 117 H 126 H Lactic Acid Calcium Phosphorus Magnesium AST ALT Lactate Dehydrogenase Total Bilirubin Direct Bilirubin CK-MB (CK-2) C-Reactive Protein NT-Pro-B Natriuret Pep Total Protein Albumin Arterial Blood Glucose Urine WBC (Auto) Urine Creatinine 02/24/20 02/24/20 02/25/20 18:35 23:27 05:20 WBC RBC Hgb Hct MCHC RDW MCV MCH Lymph % (Auto) [place] % (Auto) [place] # Eos # Lymph # (Auto) [place] # (Auto) Eos # (Auto) Seg Neutrophils % Seg Neuts % (Manual) Baso # (Auto) Lymphocytes % (Manual) Monocytes % (Manual) Eosinophils % (Manual) Basophils % (Manual) Seg Neutrophils # Seg Neutrophils # Man Lymphocytes # (Manual) Monocytes # (Manual) Eosinophils # (Manual) Nucleated RBC % Basophils # (Manual) PT INR APTT Heparin Anti-Xa Level ABG pH POC ABG pO2 ABG pO2 ABG HCO3 ABG O2 Saturation ABG Base Excess POC ABG pCO2 ABG Hemoglobin ABG Oxyhemoglobin ABG Chloride ABG Glucose Oxyhemoglobin Sodium Potassium Chloride Carbon Dioxide BUN Creatinine Glucose POC Glucose 121 H 127 H 133 H Lactic Acid Calcium Phosphorus Magnesium AST ALT Lactate Dehydrogenase Total Bilirubin Direct Bilirubin CK-MB (CK-2) C-Reactive Protein NT-Pro-B Natriuret Pep Total Protein Albumin Arterial Blood Glucose Urine WBC (Auto) Urine Creatinine 02/25/20 02/25/20 02/25/20 12:08 17:26 23:33 WBC RBC Hgb Hct MCHC RDW MCV MCH Lymph % (Auto) [place] % (Auto) [place] # Eos # Lymph # (Auto) [place] # (Auto) Eos # (Auto) Seg Neutrophils % Seg Neuts % (Manual) Baso # (Auto) Lymphocytes % (Manual) Monocytes % (Manual) Eosinophils % (Manual) Basophils % (Manual) Seg Neutrophils # Seg Neutrophils # Man Lymphocytes # (Manual) Monocytes # (Manual) Eosinophils # (Manual) Nucleated RBC % Basophils # (Manual) PT INR APTT Heparin Anti-Xa Level ABG pH POC ABG pO2 ABG pO2 ABG HCO3 ABG O2 Saturation ABG Base Excess POC ABG pCO2 ABG Hemoglobin ABG Oxyhemoglobin ABG Chloride ABG Glucose Oxyhemoglobin Sodium Potassium Chloride Carbon Dioxide BUN Creatinine Glucose POC Glucose 109 H 120 H 120 H Lactic Acid Calcium Phosphorus Magnesium AST ALT Lactate Dehydrogenase Total Bilirubin Direct Bilirubin CK-MB (CK-2) C-Reactive Protein NT-Pro-B Natriuret Pep Total Protein Albumin Arterial Blood Glucose Urine WBC (Auto) Urine Creatinine 02/26/20 02/26/20 02/27/20 05:33 07:50 12:13 WBC RBC Hgb Hct MCHC RDW MCV MCH Lymph % (Auto) [place] % (Auto) [place] # Eos # Lymph # (Auto) [place] # (Auto) Eos # (Auto) Seg Neutrophils % Seg Neuts % (Manual) Baso # (Auto) Lymphocytes % (Manual) Monocytes % (Manual) Eosinophils % (Manual) Basophils % (Manual) Seg Neutrophils # Seg Neutrophils # Man Lymphocytes # (Manual) Monocytes # (Manual) Eosinophils # (Manual) Nucleated RBC % Basophils # (Manual) PT INR APTT Heparin Anti-Xa Level ABG pH POC ABG pO2 ABG pO2 ABG HCO3 ABG O2 Saturation ABG Base Excess POC ABG pCO2 ABG Hemoglobin ABG Oxyhemoglobin ABG Chloride ABG Glucose Oxyhemoglobin Sodium Potassium Chloride Carbon Dioxide BUN Creatinine Glucose POC Glucose 106 H 130 H Lactic Acid Calcium Phosphorus Magnesium AST ALT Lactate Dehydrogenase Total Bilirubin Direct Bilirubin CK-MB (CK-2) C-Reactive Protein NT-Pro-B Natriuret Pep Total Protein Albumin Arterial Blood Glucose Urine WBC (Auto) > 182.0 H Urine Creatinine 02/27/20 02/27/20 02/28/20 18:20 23:33 05:01 WBC RBC Hgb Hct MCHC RDW MCV MCH Lymph % (Auto) [place] % (Auto) [place] # Eos # Lymph # (Auto) [place] # (Auto) Eos # (Auto) Seg Neutrophils % Seg Neuts % (Manual) Baso # (Auto) Lymphocytes % (Manual) Monocytes % (Manual) Eosinophils % (Manual) Basophils % (Manual) Seg Neutrophils # Seg Neutrophils # Man Lymphocytes # (Manual) Monocytes # (Manual) Eosinophils # (Manual) Nucleated RBC % Basophils # (Manual) PT INR APTT Heparin Anti-Xa Level ABG pH POC ABG pO2 ABG pO2 ABG HCO3 ABG O2 Saturation ABG Base Excess POC ABG pCO2 ABG Hemoglobin ABG Oxyhemoglobin ABG Chloride ABG Glucose Oxyhemoglobin Sodium Potassium Chloride Carbon Dioxide BUN Creatinine Glucose POC Glucose 109 H 124 H 134 H Lactic Acid Calcium Phosphorus Magnesium AST ALT Lactate Dehydrogenase Total Bilirubin Direct Bilirubin CK-MB (CK-2) C-Reactive Protein NT-Pro-B Natriuret Pep Total Protein Albumin Arterial Blood Glucose Urine WBC (Auto) Urine Creatinine 02/28/20 11:54 WBC RBC Hgb Hct MCHC RDW MCV MCH Lymph % (Auto) [place] % (Auto) [place] # Eos # Lymph # (Auto) [place] # (Auto) Eos # (Auto) Seg Neutrophils % Seg Neuts % (Manual) Baso # (Auto) Lymphocytes % (Manual) Monocytes % (Manual) Eosinophils % (Manual) Basophils % (Manual) Seg Neutrophils # Seg Neutrophils # Man Lymphocytes # (Manual) Monocytes # (Manual) Eosinophils # (Manual) Nucleated RBC % Basophils # (Manual) PT INR APTT Heparin Anti-Xa Level ABG pH POC ABG pO2 ABG pO2 ABG HCO3 ABG O2 Saturation ABG Base Excess POC ABG pCO2 ABG Hemoglobin ABG Oxyhemoglobin ABG Chloride ABG Glucose Oxyhemoglobin Sodium Potassium Chloride Carbon Dioxide BUN Creatinine Glucose POC Glucose 133 H Lactic Acid Calcium Phosphorus Magnesium AST ALT Lactate Dehydrogenase Total Bilirubin Direct Bilirubin CK-MB (CK-2) C-Reactive Protein NT-Pro-B Natriuret Pep Total Protein Albumin Arterial Blood Glucose Urine WBC (Auto) Urine Creatinine Chest x-ray: pending Allied health notes reviewed: nursing
[2020-02-28] MEDS: ONDANSETRON 4 MG/2 ML INJ IV PRN (13:03)
[2020-02-28] MEDS: METOPROLOL TARTRATE 25 MG TAB FEEDTUBE SCH ×3 (13:04→21:03)
--- NOTE | 2020-02-28 13:55 | Progress Note ---
Assessment and Plan Assessment and plan: --Ischemic cardiomyopathy Cardiology is following, status post cardiac catheterization on 01/22/2020; C oronary artery disease status post PCI and stent to the LAD Continue current cardiac medications --Acute on chronic hypoxemic respiratory failure; Patient has tracheostomy on vent Continue nebulizers, , trach care Wean off ventilator as tolerated Pulmonary critical following --Acute exacerbation of COPD; Patient is currently on ventilatory support Continue nebulizers --Left lower lobe PE; Continue Eliquis, ventilatory support --Acute right lower extremity DVT; Patient is on Eliquis --Bilateral multifocal pneumonia/community-acquired Completed antibiotics, improved --Severe sepsis/bilateral pneumonia: Completed antibiotics COVID-19 test; 11/24/2019; negative 11/26/2019; negative 12/29/2019: Negative --Paroxysmal atrial fibrillation; Now rate controlled, Stable on amiodarone and Eliquis --Acute on chronic combined systolic and diastolic congestive heart failure Ischemic cardiomyopathy left ventricular ejection fraction 40 to 45% --H/o CAD [[facility] 12/2018 in-stent restenosis] Patient is stable on current cardiac medications --Hypertensive emergency; present on admission Reasonable blood pressures, continue current antihypertensives As needed medications --History of alcohol abuse/alcohol withdrawal; Was on CIWA protocol, now stable --Oropharyngeal dysphagia; status post PEG placement Continue PEG feeds per protocol --History of partial small bowel obstruction; resolved --Obesity; BMI 34.7 Patient needs weight reduction when medically stable --Severe protein calorie malnutrition/hypoalbuminemia Nutrition supplements, dietitian following, PEG feeds --DVT prophylaxis;Eliquis --Full CODE STATUS Discharge planning 01/05; Pt stable. NGT output 650cc over 24 hours, bilious. No f/c, WBC within normal limits. cont NG suction and cont to hold TF 01/06: Abs series - mild improvement in small bowel distension in mid abdomen, normal gas/stool pattern in colon. NGT in duodenum. Continue to hold tube feeding, maintain NG tube with low intermittent suction. Patient's was updated by phone. Continue to provide supportive care and monitor clinically. 01/07: +BMs today and NGT/PEG output appears more gastric today. Plan to clamp NGT, if tolerates start TF from tomorrow. cont supportive care. 01/08; Gastric output decreased over last 24 hours. NGT has been clamped x 24 hours. plan to dc NGT and to start TTF via PEG - vital HF @10cc/hr 01/09: clinically stable, tolerating TF. monitor BMP, wean off from vent as tolerated clinically stable, on TF. wean off vent as tolerated 01/11: wean off from vent, cont to monitor, on TF 01/12: wean off from vent, cont to monitor, on TF. need placement - unfunded 01/13; remains on ventilatory support, unable to wean, DC planning possible LTAC, unfunded 01/14; patient of ventilatory support, T-piece tracheostomy on oxygen, LTAC placement per case management 01/16; tracheostomy, patient on full ventilatory support, wean off vent support as tolerated, pending LTAC placement, social financial issues 01/17; awaiting LTAC placement, insurance and financial issues 01/18; patient tracheostomy remains on ventilatory support 01/19; wean off ventilator as tolerated 01/20; remains on ventilatory support, patient complains of intermittent chest pain, cardiology recommend left heart catheterization tomorrow 01/22/2020. Patient for left heart catheterization per cardiology. Patient remains on AC mode ventilation rate 12, tidal volume 450, FiO2 30% and PEEP of 6. Continue tracheostomy care, airway management and secretion control. 01/23/2020. Cardiac catheterization completed yesterday revealed widely patent previous LAD stent with mild nonobstructive atherosclerosis of the right mid coronary artery and rest of the coronary system was without significant atherosclerosis. The left ventricle ejection fraction was mildly impaired at 40 to 45%. There was some hypokinesis of the basal inferior wall suggestive of previous or recent infarct. Continue GDMT for coronary artery disease including beta blockers, topical nitrates, statin and Plavix. Continue Eliquis for paroxysmal atrial fibrillation and PE. Continue diuresis with Lasix and follow electrolytes closely. Continue Robinul and scopolamine for secretion control and daily SBT per pulmonary. Also, continue bronchodilators and routine trach care/airway management. T-piece trials per pulmonary as tolerated. 01/24/2020. Recent cardiac catheterization has documented widely patent left anterior descending artery stent with minimal nonobstructive diffuse coronary artery disease in the rest of the coronary arteries. Evidence of ischemic cardiomyopathy with inferior wall hypokinesis. Continue with guideline directed medical therapy. Continue Robinul and scopolamine for secretion control and daily SBT per pulmonary. Continue bronchodilators and routine trach care/airway management. T-piece trials per pulmonary as tolerated. 01/25/2020. Continue with guideline directed medical therapy for systolic heart failure. Cardiac catheterization revealed evidence of ischemic cardiomyopathy with inferior wall hypokinesis (EF 40-45%). Patient currently on T-piece with oxygen 10 L/min FiO2 40%. Continue Robinul and scopolamine for secretion control. Continue bronchodilators and routine trach care/airway management. 02/03: Mental status more improved, agree with Reglan will change to IV scheduled for two days, no new vomiting. Pseudomonas A in Sputum. 02/04: Clinical improving, amiodarone discontinued due to LFTs, continue Metoprolol.d/w GI, started on Golytely to clear impaction. Started on dialy Miralax. 02/05: Continue supportive care. Noted bowel movement, continue bowel regimen 02/06: Cardiology input noted beta-hebert increased for better suppression of atrial fibrillation. Continue to monitor, no other evidence of nausea vomiting noted. Discussed with respiratory therapist will be continued on weaning protocol with pressure support today. 02/07: Patient successfully weaned off the ventilator, No new complaints, continue monitoring, BM noted, Discussed with pulmonary, 02/08; tracheostomy on T-piece, patient is more alert and awake today 02/09; clinically no change, tracheostomy on vent 02/10; tracheostomy on vent, full CODE STATUS, poor prognosis, 02/11; clinically no change, remains on ventilatory support, full CODE STATUS, discussed with spouse Ms. Paulette Araiza extensively today 02/12. Patient resting comfortably no change on vent with tracheostomy. Still unable to wean. Some increased crackles today. 02/13: Still unable to wean from the vent. Overall prognosis remains extremely poor. 02/14; remains critically ill, tracheostomy on vent, unable to wean, poor prognosis, full CODE STATUS 02/15; patient is more alert and awake today, chronic tracheostomy on T-piece, continue current management DC planning per case management. Disposition very difficult due to lack of resources and insurance 02/17/2020. Patient remains on mechanical ventilation and tolerating PSV trials. Patient currently with PSV 10/6 at FiO2 of 30%. 02/18/2020. Patient currently on PSV 10/6 with FiO2 of 40%. 40% T-piece trial was attempted but patient unable to tolerate due to saturations dropping into the 80s and heart rate in the 140s. Therefore, patient placed back on PSV. Continue anticoagulation with Eliquis. Continue secretion control with Robinul and scopolamine. Continue rate control with metoprolol and digoxin. 02/19/2020. Patient currently on PSV 10/6 with FiO2 of 30%. T-piece trial attempted yesterday but patient did not tolerate. Continue T-piece trials as tolerated. Continue anticoagulation with Eliquis. Continue secretion control with Robinul and scopolamine. Continue rate control with metoprolol and digoxin. Continue to follow with case management with regards to discharge p lizette. 02/20/2020. Patient continues to tolerate PSV 10/6. Continue rate control with metoprolol and digoxin. Amiodarone discontinued due to elevated liver transaminases. Eliquis for anticoagulation acute PE/DVT. 02/21/2020. Patient continues to tolerate PSV 10/6 at FiO2 of 30%. Continue r ate control with metoprolol and digoxin. Amiodarone discontinued due to elevated liver transaminases. Eliquis for anticoagulation acute PE/DVT. 02/22/2020. Patient continues to tolerate PSV 10/6 at FiO2 of 30%. Continue rate control with metoprolol and digoxin. Amiodarone discontinued due to e levated liver transaminases. Eliquis for anticoagulation acute PE/DVT. 02/22. Awake and alert on vent. Vitals stable. 02/23. Awake and alert on vent. Requests for ice. Vitals stable 02/24. Trach to vent. Continue rate control with metoprolol and digoxin. Amiodarone discontinued due to elevated liver transaminases. Eliquis for anticoagulation of acute PE/DVT. Transferred to [facility] 02/25. Seen in [facility]. Requests for ice. RN to provide a cube of ice. Vitals stable. 02/26. No change in medical condition. Slightly tachy this AM. Will monitor. 02/27. Cardiology started him on a beta hebert. The high probability of a clinically significant, sudden or life threatening deterioration of the [Respiratory, cardiovascular & neurological] system(s) required my full and direct attention, intervention and personal management. The aggregate critical care time was [32] minutes without overlap. Time includes spent on [x] Data Review and interpretation [x] Patient assessment and monitoring of vital signs [x] Documentation [x] Medication orders and management History Interval history: Patient seen and examined at bedside this morning No new complaints Hospitalist Physical - Physical exam Narrative exam: VITAL SIGNS: Reviewed. GENERAL: Awake on vent HEAD: No signs of head trauma. EYES: Pupils are equal. Extraocular motions intact. EARS: Hearing grossly intact. MOUTH: Oropharynx is normal. NECK: No adenopathy, no JVD. Trach in place CHEST: Chest with diminished breath sounds bilaterally. No wheezes, rales, or rhonchi. CARDIAC: Regular rate and rhythm. S1 and S2, without murmurs, gallops, or rubs. VASCULAR: +Edema. Peripheral pulses normal and equal in all extremities. ABDOMEN: Soft, non tender and non distended. No rebound or guarding, and no masses palpated. Bowel Sounds normal. MUSCULOSKELETAL: Good range of motion of all major joints. NEUROLOGIC EXAM: Alert and oriented x3. No focal neurologic deficits PSYCHIATRIC: Stable mood SKIN: No obvious lesions - Constitutional Vitals: Temp Pulse Resp BP Pulse Ox 97.5 F L 102 H 16 133/102 98 02/28/20 08:00 02/28/20 13:40 02/28/20 13:40 02/28/20 13:40 02/28/20 13:40 HEART Score - HEART Score Troponin: Troponin T < 0.010 ng/mL (0.00-0.029) 01/19/20 01:35 Results - Labs CBC & Chem 7: 02/22/20 08:06 02/22/20 08:06 Labs: Laboratory Last Values WBC 9.2 K/mm3 (4.5-11.0) 02/22/20 08:06 RBC 4.42 M/mm3 (3.65-5.03) 02/22/20 08:06 Hgb 10.8 gm/dl (11.8-15.2) L 02/22/20 08:06 Hct 35.2 % (35.5-45.6) L 02/22/20 08:06 MCV 80 fl (84-94) L 02/22/20 08:06 MCH 25 pg (28-32) L 02/22/20 08:06 MCHC 31 % (32-34) L 02/22/20 08:06 RDW 21.8 % (13.2-15.2) H 02/22/20 08:06 Plt Count 216 K/mm3 (140-440) 02/22/20 08:06 Lymph % (Auto) 19.0 % (13.4-35.0) 02/22/20 08:06 [place] % (Auto) 6.5 % (0.0-7.3) 02/22/20 08:06 Eos % (Auto) 2.1 % (0.0-4.3) 02/22/20 08:06 Baso % (Auto) 0.9 % (0.0-1.8) 02/22/20 08:06 Lymph # (Auto) 1.8 K/mm3 (1.2-5.4) 02/22/20 08:06 [place] # (Auto) 0.6 K/mm3 (0.0-0.8) 02/22/20 08:06 Eos # (Auto) 0.2 K/mm3 (0.0-0.4) 02/22/20 08:06 Baso # (Auto) 0.1 K/mm3 (0.0-0.1) 02/22/20 08:06 Add Manual Diff Complete 02/15/20 06:59 Total Counted 100 02/15/20 06:59 Seg Neutrophils % 71.5 % (40.0-70.0) H 02/22/20 08:06 Seg Neuts % (Manual) 58.0 % (40.0-70.0) 02/15/20 06:59 Band Neutrophils % 0 % 02/15/20 06:59 Lymphocytes % (Manual) 34.0 % (13.4-35.0) 02/15/20 06:59 Reactive Lymphs % (Man) 1.0 % 02/15/20 06:59 Monocytes % (Manual) 4.0 % (0.0-7.3) 02/15/20 06:59 Eosinophils % (Manual) 0 % (0.0-4.3) 02/15/20 06:59 Basophils % (Manual) 2.0 % (0.0-1.8) H 02/15/20 06:59 Metamyelocytes % 1.0 % 02/15/20 06:59 Myelocytes % 0 % 02/15/20 06:59 Promyelocytes % 0 % 02/15/20 06:59 Blast Cells % 0 % 02/15/20 06:59 Nucleated RBC % 1.0 % (0.0-0.9) H 02/15/20 06:59 Seg Neutrophils # 6.6 K/mm3 (1.8-7.7) 02/22/20 08:06 Seg Neutrophils # Man 5.9 K/mm3 (1.8-7.7) 02/15/20 06:59 Band Neutrophils # 0.0 K/mm3 02/15/20 06:59 Lymphocytes # (Manual) 3.5 K/mm3 (1.2-5.4) 02/15/20 06:59 Abs React Lymphs (Man) 0.1 K/mm3 02/15/20 06:59 Monocytes # (Manual) 0.4 K/mm3 (0.0-0.8) 02/15/20 06:59 Eosinophils # (Manual) 0.0 K/mm3 (0.0-0.4) 02/15/20 06:59 Basophils # (Manual) 0.2 K/mm3 (0.0-0.1) H 02/15/20 06:59 Metamyelocytes # 0.1 K/mm3 02/15/20 06:59 Myelocytes # 0.0 K/mm3 02/15/20 06:59 Promyelocytes # 0.0 K/mm3 02/15/20 06:59 Blast Cells # 0.0 K/mm3 02/15/20 06:59 WBC Morphology Not Reportable 02/15/20 06:59 Hypersegmented Neuts Not Reportable 02/15/20 06:59 Hyposegmented Neuts Not Reportable 02/15/20 06:59 Hypogranular Neuts Not Reportable 02/15/20 06:59 Smudge Cells Not Reportable 02/15/20 06:59 Toxic Granulation Not Reportable 02/15/20 06:59 Toxic Vacuolation Not Reportable 02/15/20 06:59 Dohle Bodies Not Reportable 02/15/20 06:59 Pelger-Huet Anomaly Not Reportable 02/15/20 06:59 Hector Rods Not Reportable 02/15/20 06:59 Platelet Estimate Consistent w auto 02/15/20 06:59 Clumped Platelets Not Reportable 02/15/20 06:59 Plt Clumps, EDTA Not Reportable 02/15/20 06:59 Large Platelets Not Reportable 02/15/20 06:59 Giant Platelets Not Reportable 02/15/20 06:59 Platelet Satelliting Not Reportable 02/15/20 06:59 Plt Morphology Comment Giant platelets 02/15/20 06:59 RBC Morphology Not Reportable 02/15/20 06:59 Dimorphic RBCs Not Reportable 02/15/20 06:59 Polychromasia Not Reportable 02/15/20 06:59 Hypochromasia 1+ 02/15/20 06:59 Poikilocytosis Few 02/15/20 06:59 Anisocytosis 1+ 02/15/20 06:59 Microcytosis Not Reportable 02/15/20 06:59 Macrocytosis Not Reportable 02/15/20 06:59 Spherocytes Not Reportable 02/15/20 06:59 Pappenheimer Bodies Not Reportable 02/15/20 06:59 Sickle Cells Not Reportable 02/15/20 06:59 Target Cells 1+ 02/15/20 06:59 Tear Drop Cells Few 02/15/20 06:59 Ovalocytes Not Reportable 02/15/20 06:59 Helmet Cells Not Reportable 02/15/20 06:59 Gottlieb-Amory Bodies Not Reportable 02/15/20 06:59 [place] Rings Not Reportable 02/15/20 06:59 Oc Cells Not Reportable 02/15/20 06:59 Bite Cells Not Reportable 02/15/20 06:59 Crenated Cell Not Reportable 02/15/20 06:59 Elliptocytes Few 02/15/20 06:59 Acanthocytes (Spur) Not Reportable 02/15/20 06:59 Rouleaux Not Reportable 02/15/20 06:59 Hemoglobin C Crystals Not Reportable 02/15/20 06:59 Schistocytes Not Reportable 02/15/20 06:59 Malaria parasites Not Reportable 02/15/20 06:59 Clifford Bodies Not Reportable 02/15/20 06:59 Hem Pathologist Commnt No 02/15/20 06:59 PT 27.0 Sec. (12.2-14.9) H 02/07/20 15:03 INR 2.46 (0.87-1.13) H 02/07/20 15:03 APTT 31.5 Sec. (24.2-36.6) 01/22/20 09:58 Heparin Anti-Xa Level 1.34 U.I./ml (0.3-0.7) H 01/22/20 04:45 ABG pH 7.461 pH Units (7.350-7.450) H 02/20/20 06:45 POC ABG pCO2 34.8 mmHg (32.0-48.0) 02/11/20 14:11 ABG pCO2 47.8 mm Hg 02/20/20 06:45 POC ABG pO2 77.7 mmHg (83-108) L 02/11/20 14:11 ABG pO2 88.7 mm Hg (80.0-90.0) 02/20/20 06:45 POC ABG HCO3 26.7 02/11/20 14:11 ABG HCO3 33.3 mmol/L (20.0-26.0) H 02/20/20 06:45 ABG O2 Saturation 97.2 % (95.0-99.0) 02/20/20 06:45 ABG O2 Content 13.3 (0.0-44) 02/20/20 06:45 POC ABG Base Excess 3.6 02/11/20 14:11 ABG Base Excess 8.4 mmol/L (-2.0-3.0) H 02/20/20 06:45 ABG Hemoglobin 10.0 gm/dl (14.0-18.0) L 02/20/20 06:45 ABG Oxyhemoglobin 84 (94-98) L 12/22/19 03:22 ABG Carboxyhemoglobin 2.9 % (0.0-5.0) 02/20/20 06:45 ABG Methemoglobin 0.4 % (0.0-1.5) 02/20/20 06:45 ABG Sodium 144.7 mmol/L (136.0-145.0) 02/11/20 14:11 ABG Potassium 3.5 mmol/L (3.40-4.50) 02/11/20 14:11 ABG Chloride 108.0 mmol/L (98-107) H 02/11/20 14:11 ABG Glucose 151 mg/dL (65-95) H 02/11/20 14:11 Oxyhemoglobin 94.1 % (95.0-99.0) L 02/20/20 06:45 Carboxyhemoglobin 0.7 (0.5-1.5) 12/22/19 03:22 FiO2 30 % 02/20/20 06:45 Sodium 146 mmol/L (137-145) H 02/22/20 08:06 Potassium 3.7 mmol/L (3.6-5.0) 02/22/20 08:06 Chloride 106.1 mmol/L (98-107) 02/22/20 08:06 Carbon Dioxide 34 mmol/L (22-30) H 02/22/20 08:06 Anion Gap 10 mmol/L 02/22/20 08:06 BUN 21 mg/dL (9-20) H 02/22/20 08:06 Creatinine 0.4 mg/dL (0.8-1.3) L 02/22/20 08:06 Estimated GFR > 60 ml/min 02/22/20 08:06 BUN/Creatinine Ratio 53 % 02/22/20 08:06 Glucose 149 mg/dL (75-100) H 02/22/20 08:06 POC Glucose 133 mg/dL (70-105) H 02/28/20 11:54 Lactic Acid 1.60 mmol/L (0.7-2.0) 02/03/20 12:49 Calcium 9.5 mg/dL (8.4-10.2) 02/22/20 08:06 Ferritin 84.4 ng/mL (30.0-300.0) 11/24/19 04:53 Phosphorus 4.10 mg/dL (2.5-4.5) 01/31/20 19:24 Magnesium 2.40 mg/dL (1.7-2.3) H 02/10/20 07:40 Total Bilirubin 1.30 mg/dL (0.1-1.2) H 02/08/20 19:00 Direct Bilirubin 0.9 mg/dL (0-0.2) H 02/08/20 19:00 Indirect Bilirubin 0.4 mg/dL 02/08/20 19:00 Total Creatine Kinase 141 units/L (55-170) 11/24/19 02:53 CK-MB (CK-2) 4.3 ng/mL (0.0-4.0) H 11/24/19 02:53 AST 309 units/L (5-40) H 02/08/20 19:00 ALT 650 units/L (7-56) H 02/08/20 19:00 CK-MB (CK-2) Rel Index 3.0 (0-4) 11/24/19 02:53 Alkaline Phosphatase 109 units/L (35-129) 02/08/20 19:00 C-Reactive Protein 8.50 mg/dL (0.00-1.30) H 12/01/19 12:16 Ammonia 35.0 umol/L (25-60) 02/03/20 12:49 Lactate Dehydrogenase 228 units/L (91-180) H 12/19/19 04:45 Troponin T < 0.010 ng/mL (0.00-0.029) 01/19/20 01:35 NT-Pro-B Natriuret Pep 3866 pg/mL (0-900) H 01/01/20 10:40 Total Protein 6.2 g/dL (6.3-8.2) L 02/08/20 19:00 Albumin 2.7 g/dL (3.9-5) L 02/08/20 19:00 Albumin/Globulin Ratio 0.8 % 02/08/20 19:00 Procalcitonin 0.44 ng/mL (<0.15) 02/03/20 12:49 Arterial Blood Glucose 151 mg/dL (65-95) H 02/11/20 14:11 Arterial Blood Ionized Calcium 4.7 mg/dL (4.6-5.3) 02/11/20 14:11 Urine Color Cecy (Yellow) 02/26/20 07:50 Urine Turbidity Clear (Clear) 02/26/20 07:50 Urine pH 5.0 (5.0-7.0) 02/26/20 07:50 Ur Specific [place] 1.025 (1.003-1.030) 02/26/20 07:50 Urine Protein 30 mg/dl mg/dL (Negative) 02/26/20 07:50 Urine Glucose (UA) Neg mg/dL (Negative) 02/26/20 07:50 Urine Ketones Neg mg/dL (Negative) 02/26/20 07:50 Urine Blood Sm (Negative) 02/26/20 07:50 Urine Nitrite Neg (Negative) 02/26/20 07:50 Urine Bilirubin Neg (Negative) 02/26/20 07:50 Urine Urobilinogen 4.0 mg/dL (<2.0) 02/26/20 07:50 Ur Leukocyte Esterase Lg (Negative) 02/26/20 07:50 Urine WBC (Auto) > 182.0 /HPF (0.0-6.0) H 02/26/20 07:50 Urine RBC (Auto) 84.0 /HPF (0.0-6.0) 02/26/20 07:50 U Epithel Cells (Auto) 2.0 /HPF (0-13.0) 12/31/19 18:04 Urine Bacteria (Auto) 4+ /HPF (Negative) 02/26/20 07:50 Urine WBC Clumps 2+ /HPF 02/26/20 07:50 Urine Mucus 1+ /HPF 02/26/20 07:50 Urine Creatinine 57.4 mg/dL (0.1-20.0) H 01/31/20 Unknown Urine Sodium 59 mmol/L 01/31/20 Unknown Vancomycin Trough 14.2 ug/mL (5.0-20.0) 12/13/19 15:01 Coronavirus (PCR) Negative (Negative) 12/29/19 10:07 Hepatitis A IgM Ab Non-reactive (NonReactive) 02/05/20 06:37 Hep Bs Antigen Non-reactive (Negative) 02/05/20 06:37 Hep B Core IgM Ab Non-reactive (NonReactive) 02/05/20 06:37 Hepatitis C Antibody Non-reactive (NonReactive) 02/05/20 06:37 Blood Type O POSITIVE 01/21/20 13:00 Antibody Screen Negative 01/21/20 13:00 - Diagnostic Impressions Diagnostic Impressions: Echocardiogram 11/29/19 07:37 Transthoracic Echocardiogram Indication: CHF BP: 116/72 HR: 33 Conclusions *The study is technically limited due to poor acoustic windows. *Global left ventricular systolic function is normal. *The estimated ejection fraction is 50-55%. *Mild concentric left ventricular hypertrophy is observed. *There is trace of mitral regurgitation. *There is mild tricuspid regurgitation. Findings Procedure Info: The study quality is poor. The study is technically limited due to poor acoustic windows. The study is technically limited due to patient body habitus. Left Ventricle: The left ventricular chamber size is normal. Mild concentric left ventricular hypertrophy is observed. Global left ventricular systolic function is normal. The estimated ejection fraction is 50-55%. Left Atrium: The left atrial chamber size is normal. Right Ventricle: The right ventricular cavity size is normal. Right Atrium: The right atrial cavity size is normal. Aortic Valve: The aortic valve leaflets are moderately thickened. There is trace of aortic regurgitation. There is no evidence of aortic stenosis. Mitral Valve: The mitral valve leaflets are mildly thickened. There is trace of mitral regurgitation. There is no evidence of mitral stenosis. Tricuspid Valve: There is mild tricuspid regurgitation. No pulmonary hypertension is noted. Pulmonic Valve: There is trace pulmonic regurgitation. Pericardium: There is no pericardial effusion. Aorta: There is no dilatation of the aortic root. Venous: The inferior vena cava appears normal in size. Contrast: Definity was used to optimize study. Intravenous contrast was used to enhance endocardial border definition. Measurements Chambers 2D Name Value Normal Range Ao root diameter (2D) 3.4 cm (2 - 3.7) Aortic Valve Name Value Normal Range AV Vmax 0.98 m/sec - AV VTI 16.76 cm - AV peak gradient 3.83 mmHg - AV mean gradient 2.57 mmHg - LVOT diameter 3.11 cm - LVOT Vmax 0.68 m/sec - LVOT VTI 11.52 cm - LVOT peak gradient 1.84 mmHg - LVOT mean gradient 1.27 mmHg - SV LVOT 87.31 ml - MALOU (continuity Vmax) 5.24 cm2 - MALOU (continuity VTI) 5.21 cm2 - Tricuspid Valve Name Value Normal Range IVC diameter 2.24 cm (1.2 - 2.3) Hoffman/IV: Voiding Method Indwelling Catheter IV Catheter Type [Left INT / Saline Lock Antecubital] IV Catheter Type [Right INT / Saline Lock Forearm] IV Catheter Type [Right Hand] Peripheral IV IV Catheter Type [Right Upper INT / Saline Lock arm] IV Catheter Type [Left Upper Mid-line arm] IV Catheter Type [Left Forearm Peripheral IV ] IV Catheter Type [Left Hand] Peripheral IV IV Catheter Type [Left Wrist] INT / Saline Lock IV Catheter Type [Right Peripheral IV Antecubital] Active Medications - Current Medications Current Medications: Generic Name Dose Route Start Last Admin Trade Name Freq PRN Reason Stop Dose Admin Acetaminophen 650 mg 12/31/19 11:43 02/19/20 17:01 Tylenol FEEDTUBE 650 mg Q6H PRN Administration Pain, Mild (1-3) Lipase/Protease/Amylase 1 each 01/09/20 12:01 Nadir Betancourt 10,500 Unit FEEDTUBE PRN PRN For Clogged Feeding Tube Apixaban 5 mg 01/22/20 22:00 02/28/20 09:42 Eliquis PO 5 mg Q12HR CAR Administration Protocol Atorvastatin Calcium 40 mg 01/20/20 22:00 02/27/20 21:01 Lipitor PO 40 mg QHS CAR Administration Clopidogrel Bisulfate 75 mg 01/21/20 06:00 02/28/20 09:42 Plavix PO 75 mg QDAY CAR Administration Dextrose 50 ml 01/31/20 18:51 02/05/20 00:56 D50w (25gm) Syringe IV 50 ml Q30MIN PRN Administration Hypoglycemia Protocol Digoxin 0.125 mg 02/25/20 17:00 02/27/20 16:54 Lanoxin PO 0.125 mg DAILY@1700 CAR Administration Docusate Sodium 100 mg 02/22/20 10:00 02/28/20 09:42 Colace FEEDTUBE 100 mg BID CAR Administration Glycopyrrolate 2 mg 02/24/20 21:00 02/28/20 13:04 Glycopyrrolate PO 2 mg TID CAR Administration Haloperidol Lactate 5 mg 02/10/20 14:20 02/26/20 15:00 Haldol IV 5 mg Q6H PRN Administration Agitation Hydrophilic Ointment 1 applic 01/17/20 15:26 02/24/20 23:20 Vaseline Lip Therapy TP 1 applic DIRECT PRN Administration Dry Lips Insulin Human Regular 0 unit 02/01/20 18:00 02/28/20 12:34 Humulin R SUB-Q Not Given Q6H [facility] Protocol Lansoprazole 30 mg 02/05/20 16:00 02/28/20 09:42 Prevacid Solutab FEEDTUBE 30 mg QDAY CAR Administration Metoprolol Tartrate 5 mg 01/11/20 08:00 02/16/20 22:00 Metoprolol IV 5 mg Q6H PRN Administration SEE INSTRUCTIONS Metoprolol Tartrate 12.5 mg 02/28/20 12:00 02/28/20 13:04 Metoprolol FEEDTUBE 12.5 mg BID CAR Administration Midodrine 15 mg 02/04/20 16:00 02/28/20 13:04 Proamatine PO Not Given TID@0800,1200,1600 CAR Morphine Sulfate 2 mg 01/06/20 15:41 02/28/20 09:52 Morphine IV 2 mg Q4H PRN Administration Pain, Moderate (4-6) Multi-Ingred Cream/Lotion/Oil/Oint 1 applic 02/01/20 15:52 Artificial Tears Ophth Oint OU Q4HR PRN Dry Eye(s) Nitroglycerin 0.4 mg 01/19/20 21:09 01/20/20 03:03 Nitrostat SL 0.4 mg .Q5MIN PRN Administration Chest Pain Ondansetron HCl 4 mg 01/05/20 14:37 02/28/20 13:03 Zofran IV 4 mg Q8H PRN Administration Nausea And Vomiting Polyethylene Glycol 17 gm 12/04/19 22:00 02/27/20 21:01 Miralax 3350 PO 17 gm QHS CAR Administration Quetiapine Fumarate 300 mg 01/13/20 22:00 02/28/20 09:42 Seroquel PO 300 mg BID CAR Administration Scopolamine 1 each 01/07/20 20:00 01/07/20 21:08 Transderm-Scop TD 1 each Q72HR CAR Administration Simple Syrup 15 ml 01/09/20 12:01 Simple Syrup FEEDTUBE PRN PRN Hypoglycemia Simple Syrup 30 ml 01/09/20 12:01 Simple Syrup FEEDTUBE PRN PRN Hypoglycemia Sodium Bicarbonate 325 mg 01/09/20 12:01 Sodium Bicarbonate FEEDTUBE PRN PRN For Clogged Feeding Tube Sodium Chloride 10 ml 11/24/19 10:00 02/28/20 09:42 Sodium Chloride Flush Syringe 10 Ml IV 10 ml BID CAR Administration Tamsulosin HCl 0.8 mg 12/20/19 22:00 02/27/20 21:00 Flomax PO 0.8 mg QHS CAR Administration Nutrition/Malnutrition Assess - Dietary Evaluation Nutrition/Malnutrition Findings: Nutrition Notes Start: 11/24/19 12:22 Freq: Status: Active Protocol: Document 02/26/20 11:54 EN (Rec: 02/26/20 12:02 EN [id number]) Co-Sign 02/26/20 11:54 MK Nutrition Notes Initial or Follow up Reassessment Current Diagnosis Coronary Artery Disease,Heart Failure,Respiratory Failure, Stroke,Hyperlipidemia Other Pertinent Diagnosis Partial SBO, pneu Current Diet Vital AF 1.2 at 75ml/hr Labs/Tests Reviewed Pertinent Medications Zofran Height 6 ft 2 in Weight 117.5 kg Catherine Body Weight (kg) 86.36 BMI 33.3 Weight Status Obese Subjective/Other Information F/u for stable TF. Per RN, pt vomited last night and TF was restarted this morning at 15 ml/hr. Pt tolerating TF. RN reports no further episodes of emesis. Percent of energy/protein needs met: 18%/16% Burn Absent Trauma Absent GI Symptoms None Current % PO Negligible Minimum of two criteria Yes Muscle Mass Mild Depletion (non-severe) Fluid Accumulation Mild (non-severe) Reduced Society Reporter Strength Measurably Reduced (severe) #2 Nutrition Diagnosis Malnutrition Diagnosis Progress(for reassessment Continues documentation) #1 Nutrition Diagnosis Inadequate oral intake Diagnosis Progress(for reassessment Continues documentation) Is patient on ventilator? Yes Is Patient Ambulatory and/or Out of Bed No REE-([place]-St. Jeor-confined to bed) 2452.344 Kcal/Kg value to use for calculation 16 Approximate Energy Requirements Using 1880 kcal/Kg Calculation Used for Recommendations Kcal/kg Additional Notes Protein needs are 117-147g (1. 2-1.5 g/kg AdBW of 97.78kg) Fluid needs are 1.5L [ End ] Nutrition Intervention Change Diet Order: Continue TF via PEG Nutrition Support: Vital AF 1.2 at 75ml/hr. increase Flush 250ml q4h for hypernatremia Flush 100ml q4h once hypernatremia is resolved Kcal 2,160 Protein (gm) 135 Fluid (mL) 1,460 Goal #1 Meet at least 75% of pt's energy and protein needs Goal #2 Weight maintenance Anticipated Discharge Needs: unable to determine at this time Follow-Up By: 02/29/20 Additional Comments F/u for TF rate/tolerance
[2020-02-28] MEDS: DIGOXIN 0.125 MG TAB PO SCH (17:10)
[2020-02-28] MEDS: POLYETHYLENE GLYCOL 3350 17 GM POWDER PO SCH ×2 (20:38→21:03)
[2020-02-28] MEDS: TAMSULOSIN 0.4 MG CAP PO SCH ×2 (20:38→21:02)
[2020-02-29] MEDS: MORPHINE 2 MG/1 ML INJ IV PRN ×2 (00:33→12:31)
[2020-02-29] MEDS: HALOPERIDOL LACTATE 5 MG/1 ML INJ IV PRN ×2 (00:35→12:17)
[2020-02-29] MEDS: ONDANSETRON 4 MG/2 ML INJ IV PRN ×2 (01:16→12:39)
[2020-02-29] MEDS: INSULIN REGULAR, HUMAN 100 UNIT/ML 3ML VIAL SUB-Q SCH ×3 (05:57→17:20)
[2020-02-29] MEDS: GLYCOPYRROLATE 2 MG TAB PO SCH ×3 (08:29→22:01)
[2020-02-29] MEDS: MIDODRINE 5 MG TAB PO SCH ×3 (08:29→16:17)
[2020-02-29] MEDS: APIXABAN 5 MG TAB PO SCH ×2 (09:31→22:01)
[2020-02-29] MEDS: QUEtiapine 100 MG TAB PO SCH ×2 (09:31→22:05)
[2020-02-29] MEDS: DOCUSATE SODIUM 100 MG/10 ML ORAL LIQD FEEDTUBE SCH ×2 (09:31→22:01)
[2020-02-29] MEDS: LANSOPRAZOLE 30 MG SOLUTAB FEEDTUBE SCH (09:31)
[2020-02-29] MEDS: METOPROLOL TARTRATE 25 MG TAB FEEDTUBE SCH ×2 (09:31→21:59)
[2020-02-29] MEDS: CLOPIDOGREL 75 MG TAB PO SCH (09:32)
--- NOTE | 2020-02-29 10:18 | Progress Note ---
<KACEY HICKEY - Last Filed: 02/29/20 10:16> Assessment and Plan Chest pain, resolved LHC done 01/22/20 widely patent previous LAD stent. We found mild nonobstructive atherosclerosis of the mid right coronary artery. Otherwise the rest of the coronary system was without significant atherosclerosis. LVEF 40 to 45%. There was some hypokinesis of the basal inferior wall suggestive of previous or recent infarct. ECG done 01/19/20 shows sinus rhythm with low voltage QRS and subtle ST segment elevations in the inferolateral leads that suggested possible concern for an acute injury at that time. Atrial fibrillation, rate control on digoxin and low dose metoprolol amiodarone discontinued due to liver transaminases Ischemic Cardiomyopathy re-echo this presentation reports an LVEF 40-45%. Hx of CAD Multifocal pneumonia negative COVID-19 test x 3 Chronic Respiratory failure s/p trach History of COPD Acute PE/DVT -on Eliquis Anemia Partial SBO vs ileus Conservative cardiac management. Will follow intermittently. Subjective Date of service: 02/29/20 Principal diagnosis: Ac hypoxemic resp failure; Pneumonia; PUI COVID-19; CHF; COPD; HTN Interval history: No interval cardiac changes. Atrial fibrillation with a well controlled ventricular rate on telemetry. Objective Vital Signs Temp Pulse Pulse Resp Resp BP Pulse Ox 02/29/20 09:31 120 H 122/85 02/29/20 08:00 109 H 110/64 95 02/29/20 07:00 130 H 25 H 112/93 95 02/29/20 06:00 135 H 27 H 103/88 77 L 02/29/20 05:18 118 H 103/88 96 02/29/20 05:00 122 H 26 H 103/88 94 02/29/20 04:00 114 H 27 H 24 111/85 97 02/29/20 03:28 98.4 F 02/29/20 03:15 99 H 02/29/20 03:00 106 H 18 125/93 94 02/29/20 02:00 126 H 24 127/101 96 02/29/20 01:03 24 02/29/20 01:00 114 H 13 110/80 96 02/29/20 00:33 21 02/29/20 00:30 20 02/29/20 00:29 122 H 02/29/20 00:17 124 H 110/80 95 02/29/20 00:00 117 H 27 H 110/80 95 02/28/20 23:57 97.8 F 02/28/20 23:00 129 H 20 108/80 97 02/28/20 22:12 141 H 22 109/89 96 02/28/20 22:00 126 H 28 H 109/89 96 02/28/20 21:08 21 02/28/20 21:00 111 H 12 119/92 95 02/28/20 20:38 24 02/28/20 20:35 109 H 119/92 02/28/20 20:32 133 H 119/92 97 02/28/20 20:30 24 02/28/20 20:00 116 H 18 123/84 98 02/28/20 19:59 97.6 F 02/28/20 19:10 130 H 02/28/20 19:00 133 H 20 113/80 96 02/28/20 18:00 119 H 23 126/93 96 02/28/20 17:10 128 H 126/93 02/28/20 17:00 121 H 21 105/84 97 02/28/20 16:00 98.1 F 130 H 109 H 26 H 20 106/87 95 02/28/20 15:37 117 H 21 106/87 98 02/28/20 15:00 123 H 24 118/73 99 02/28/20 14:00 98 H 17 133/102 99 02/28/20 13:40 102 H 16 133/102 98 02/28/20 13:30 104 H 19 133/102 97 02/28/20 13:20 110 H 20 133/102 97 02/28/20 13:10 127 H 21 163/110 97 02/28/20 13:04 120 H 163/110 02/28/20 13:00 129 H 25 H 163/110 97 02/28/20 12:50 117 H 20 127/88 98 02/28/20 12:40 129 H 24 127/88 99 02/28/20 12:30 153 H 21 95/69 97 02/28/20 12:20 99 H 15 95/69 98 02/28/20 12:10 101 H 11 L 95/69 98 02/28/20 12:00 97.8 F 106 H 106 H 21 20 95/69 100 02/28/20 11:50 96 H 9 L 107/78 99 02/28/20 11:40 94 H 11 L 107/78 100 02/28/20 11:34 97 H 14 107/78 100 02/28/20 11:30 92 H 10 L 107/78 100 02/28/20 11:20 102 H 15 107/78 97 02/28/20 11:10 86 10 L 107/78 97 02/28/20 11:00 121 H 11 L 122/87 97 02/28/20 10:50 91 H 9 L 122/87 97 02/28/20 10:40 94 H 16 122/87 98 02/28/20 10:30 105 H 14 122/87 96 Pulse Ox 02/29/20 09:31 02/29/20 08:00 96 02/29/20 07:00 02/29/20 06:00 02/29/20 05:18 97 02/29/20 05:00 02/29/20 04:00 02/29/20 03:28 02/29/20 03:15 02/29/20 03:00 02/29/20 02:00 02/29/20 01:03 02/29/20 01:00 02/29/20 00:33 02/29/20 00:30 02/29/20 00:29 02/29/20 00:17 02/29/20 00:00 02/28/20 23:57 02/28/20 23:00 02/28/20 22:12 02/28/20 22:00 02/28/20 21:08 02/28/20 21:00 02/28/20 20:38 02/28/20 20:35 02/28/20 20:32 97 02/28/20 20:30 02/28/20 20:00 02/28/20 19:59 02/28/20 19:10 02/28/20 19:00 02/28/20 18:00 02/28/20 17:10 02/28/20 17:00 02/28/20 16:00 02/28/20 15:37 98 02/28/20 15:00 02/28/20 14:00 02/28/20 13:40 02/28/20 13:30 02/28/20 13:20 02/28/20 13:10 02/28/20 13:04 02/28/20 13:00 02/28/20 12:50 02/28/20 12:40 02/28/20 12:30 02/28/20 12:20 02/28/20 12:10 02/28/20 12:00 02/28/20 11:50 02/28/20 11:40 02/28/20 11:34 02/28/20 11:30 02/28/20 11:20 02/28/20 11:10 02/28/20 11:00 02/28/20 10:50 02/28/20 10:40 02/28/20 10:30 - Physical Examination General: Other (s/p trach) HEENT: Positive: PERRL Neck: Positive: neck supple Cardiac: Positive: irregularly irregular Neuro: Positive: Grossly Intact, Weakness Extremities: Absent: edema - Allied health notes Allied health notes reviewed: nursing <PETRONA SHAHID - Last Filed: 03/01/20 07:50> Assessment and Plan - Patient Problems (1) Acute respiratory failure Current Visit: Yes Status: Acute (2) Bilateral pneumonia Current Visit: Yes Status: Acute (3) COPD exacerbation Current Visit: No Status: Acute (4) Hypertension Current Visit: No Status: Acute Qualifiers: Hypertension type: essential hypertension Qualified Code(s): I10 - Essential (primary) hypertension (5) Cardiomyopathy Current Visit: Yes Status: Acute (6) Paroxysmal atrial fibrillation Current Visit: Yes Status: Acute Subjective Interval history: I SAW THIS PT & AGREE WITH THE Dx & Tx PLAN. Objective Vital Signs Temp Pulse Pulse Resp BP Pulse Ox Pulse Ox 03/01/20 03:56 108 H 102/70 98 03/01/20 02:00 100 H 27 H 100/80 94 03/01/20 01:00 120 H 19 114/66 93 03/01/20 00:00 97.1 F L 93 H 93 H 16 126/84 94 02/29/20 23:00 125 H 23 113/81 96 02/29/20 22:00 91 H 21 113/81 95 02/29/20 21:59 103 H 116/85 02/29/20 21:37 117 H 116/85 96 02/29/20 21:00 104 H 20 116/92 95 02/29/20 20:20 104 H 24 116/92 90 02/29/20 20:00 97.6 F 129 H 132 H 24 117/96 91 02/29/20 19:00 113 H 18 104/69 91 02/29/20 18:00 88 14 125/90 91 02/29/20 17:00 138 H 25 H 125/90 90 02/29/20 16:17 142 H 02/29/20 16:14 110 H 125/102 95 95 02/29/20 16:00 99.2 F 120 H 120 H 24 125/102 90 02/29/20 15:00 138 H 28 H 121/97 96 02/29/20 14:00 95 H 21 137/99 95 02/29/20 13:00 130 H 27 H 124/93 89 02/29/20 12:00 129 H 129 H 30 H 108/89 87 02/29/20 11:46 97.6 F 107 H 02/29/20 11:00 109 H 23 108/89 93 02/29/20 10:00 119 H 25 H 140/82 97 02/29/20 09:31 120 H 122/85 02/29/20 09:00 106 H 25 H 122/85 95 02/29/20 08:30 121 H 17 108/89 97 02/29/20 08:00 98 F 130 H 100 H 20 112/93 96 96
--- NOTE | 2020-02-29 13:52 | Progress Note ---
Assessment and Plan Patient admitted for acute hypoxic respiratory failure, S/P tracheostomy.Patient awake. Resting on Assist control mechanical ventilation, rate 12, Tidal volume 450,FIO2 40%, PEEP 6 and O2 saturation running 96%. ABG ABG pH 7.461 pH Units (7.350-7.450) H 02/20/20 06:45 POC ABG pCO2 34.8 mmHg (32.0-48.0) 02/11/20 14:11 ABG pCO2 47.8 mm Hg 02/20/20 06:45 POC ABG pO2 77.7 mmHg (83-108) L 02/11/20 14:11 ABG pO2 88.7 mm Hg (80.0-90.0) 02/20/20 06:45 POC ABG HCO3 26.7 02/11/20 14:11 ABG O2 Saturation 97.2 % (95.0-99.0) 02/20/20 06:45 Patient running low grade temp. No leukocytosis. Chest xray done 02/18/20 reported Worsening airspace disease, particularly within the right lower lobe. Repeating chest xray.Patient presently not on any antibiotics. Patient is on Apixaban and prevacid. I spent critical care time of 45 minutes on this patient review the chart, obtain history , examining the patient, review chest xray, labs, talking to the nursing staff and respiratory therapy and work out plan of treatment un this critically ill patient. - Patient Problems (1) Acute respiratory failure Current Visit: Yes Status: Acute Plan to address problem: Patient is on mechanical ventilation assist control, rate 12, Tidal volume 450, FIO2 40%, PEEP 6. Albuterol/atrovent aerosol treatments. Continue apixaban Recommend GI prophylaxis. (2) COPD exacerbation Current Visit: No Status: Acute Plan to address problem: Patient is on mechanical ventilation assist control, rate 12, Tidal volume 450, FIO2 40%, PEEP 6. Albuterol/atrovent aerosol treatments. Continue apixaban Recommend GI prophylaxis. (3) Bilateral pneumonia Current Visit: Yes Status: Acute Plan to address problem: Repeating chest xray. (4) CHF exacerbation Current Visit: Yes Status: Acute Plan to address problem: Management as per cardiology. (5) Cardiomyopathy Current Visit: Yes Status: Acute Plan to address problem: Management as per cardiology. (6) Pancreatic lesion Current Visit: Yes Status: Acute Plan to address problem: Management as per primary care. (7) Paroxysmal atrial fibrillation Current Visit: Yes Status: Acute Plan to address problem: Patient is on apixaban. Management as per cardiology. (8) CVA (cerebral vascular accident) Current Visit: No Status: Acute Qualifiers: Precerebral and cerebral artery: middle cerebral artery Laterality of affected vessel: right Plan to address problem: Management as per primary care. (9) Cocaine dependence Current Visit: No Status: Acute Plan to address problem: Management as per primary care. (10) HTN (hypertension) Current Visit: No Status: Acute Qualifiers: Hypertension type: essential hypertension Qualified Code(s): I10 - Essential (primary) hypertension Plan to address problem: Management as per primary care. (11) Nicotine dependence Current Visit: No Status: Acute Qualifiers: Nicotine product type: cigarettes Substance use status: in withdrawal Qualified Code(s): F17.213 - Nicotine dependence, cigarettes, with withdrawal Plan to address problem: Counseled to stop smoking. (12) Obesity hypoventilation syndrome Current Visit: No Status: Acute Plan to address problem: [place] S/P tracheostomy and on mechanical ventilation. Subjective Date of service: 02/29/20 Principal diagnosis: Ac hypoxemic resp failure; Pneumonia; PUI COVID-19; CHF; COPD; HTN Interval history: Patient admitted for acute hypoxic respiratory failure, S/P tracheostomy.Patient awake. Resting on Assist control mechanical ventilation, rate 12, Tidal volume 450,FIO2 40%, PEEP 6 and O2 saturation running 96%. ABG ABG pH 7.461 pH Units (7.350-7.450) H 02/20/20 06:45 POC ABG pCO2 34.8 mmHg (32.0-48.0) 02/11/20 14:11 ABG pCO2 47.8 mm Hg 02/20/20 06:45 POC ABG pO2 77.7 mmHg (83-108) L 02/11/20 14:11 ABG pO2 88.7 mm Hg (80.0-90.0) 02/20/20 06:45 POC ABG HCO3 26.7 02/11/20 14:11 ABG O2 Saturation 97.2 % (95.0-99.0) 02/20/20 06:45 Patient running low grade temp. No leukocytosis. Chest xray done 02/18/20 reported Worsening airspace disease, particularly within the right lower lobe. Repeating chest xray. Patient presently not on any antibiotics. Patient is on Apixaban and prevacid. Objective Vital Signs - 12hr 02/29/20 02/29/20 02/29/20 02:00 03:00 03:15 Temperature Pulse Rate 126 H 106 H 99 H Pulse Rate [ From Monitor] Respiratory 24 18 Rate Respiratory Rate [ Generalized] Blood Pressure 127/101 125/93 O2 Sat by Pulse 96 94 Oximetry O2 Sat by Pulse Oximetry [ Assessment] 02/29/20 02/29/20 02/29/20 03:28 04:00 05:00 Temperature 98.4 F Pulse Rate 114 H 122 H Pulse Rate [ From Monitor] Respiratory 27 H 26 H Rate Respiratory 24 Rate [ Generalized] Blood Pressure 111/85 103/88 O2 Sat by Pulse 97 94 Oximetry O2 Sat by Pulse Oximetry [ Assessment] 02/29/20 02/29/20 02/29/20 05:18 06:00 07:00 Temperature Pulse Rate 118 H 135 H 130 H Pulse Rate [ From Monitor] Respiratory 27 H 25 H Rate Respiratory Rate [ Generalized] Blood Pressure 103/88 103/88 112/93 O2 Sat by Pulse 96 77 L 95 Oximetry O2 Sat by Pulse 97 Oximetry [ Assessment] 02/29/20 02/29/20 02/29/20 08:00 08:30 09:00 Temperature 98 F Pulse Rate 130 H 121 H 106 H Pulse Rate [ 100 H From Monitor] Respiratory 20 17 25 H Rate Respiratory Rate [ Generalized] Blood Pressure 112/93 108/89 122/85 O2 Sat by Pulse 96 97 95 Oximetry O2 Sat by Pulse 96 Oximetry [ Assessment] 02/29/20 02/29/20 02/29/20 09:31 10:00 11:00 Temperature Pulse Rate 120 H 119 H 109 H Pulse Rate [ From Monitor] Respiratory 25 H 23 Rate Respiratory Rate [ Generalized] Blood Pressure 122/85 140/82 108/89 O2 Sat by Pulse 97 93 Oximetry O2 Sat by Pulse Oximetry [ Assessment] 02/29/20 02/29/20 02/29/20 11:46 12:00 13:00 Temperature 97.6 F Pulse Rate 107 H 129 H 130 H Pulse Rate [ 129 H From Monitor] Respiratory 30 H 27 H Rate Respiratory Rate [ Generalized] Blood Pressure 108/89 124/93 O2 Sat by Pulse 87 89 Oximetry O2 Sat by Pulse Oximetry [ Assessment] Constitutional: no acute distress, alert, other (Patient is resting on mechanical ventilation.) Eyes: non-icteric ENT: oropharynx moist, other (+ midline tracheostomy) Neck: supple, no JVD Effort: mildly labored Ascultation: Bilateral: diminished breath sounds, rhonchi (scant), other (mild tracheal secretions ) Percussion: Bilateral: not dull Cardiovascular: irregular rhythm Gastrointestinal: normoactive bowel sounds, soft, non-tender, non-distended (protuberant), other (protuberant; PEG in place) Integumentary: normal Extremities: no cyanosis, pulses normal, no ischemia or petechiae, edema (bilateral lower) Neurologic: non-focal exam (moves extremities), pupils equal and round, other (intermittent agitation) Psychiatric: mood appropriate, affect normal CBC and BMP: 02/22/20 08:06 02/22/20 08:06 ABG, PT/INR, D-dimer: ABG ABG pH 7.461 pH Units (7.350-7.450) H 02/20/20 06:45 POC ABG pCO2 34.8 mmHg (32.0-48.0) 02/11/20 14:11 ABG pCO2 47.8 mm Hg 02/20/20 06:45 POC ABG pO2 77.7 mmHg (83-108) L 02/11/20 14:11 ABG pO2 88.7 mm Hg (80.0-90.0) 02/20/20 06:45 POC ABG HCO3 26.7 02/11/20 14:11 ABG O2 Saturation 97.2 % (95.0-99.0) 02/20/20 06:45 PT/INR, D-dimer PT 27.0 Sec. (12.2-14.9) H 02/07/20 15:03 INR 2.46 (0.87-1.13) H 02/07/20 15:03 Abnormal lab findings: Abnormal Labs 11/24/19 11/24/19 11/24/19 02:53 02:53 03:45 WBC 14.3 H RBC Hgb Hct MCHC RDW 17.2 H MCV MCH Lymph % (Auto) [place] % (Auto) [place] # Eos # Lymph # (Auto) [place] # (Auto) Eos # (Auto) Seg Neutrophils % Seg Neuts % (Manual) Baso # (Auto) Lymphocytes % (Manual) Monocytes % (Manual) Eosinophils % (Manual) Basophils % (Manual) Seg Neutrophils # Seg Neutrophils # Man 8.3 H Lymphocytes # (Manual) Monocytes # (Manual) 0.9 H Eosinophils # (Manual) Nucleated RBC % Basophils # (Manual) PT INR APTT Heparin Anti-Xa Level ABG pH 7.313 L POC ABG pO2 ABG pO2 102.8 H ABG HCO3 ABG O2 Saturation ABG Base Excess -2.9 L POC ABG pCO2 ABG Hemoglobin ABG Oxyhemoglobin ABG Chloride ABG Glucose Oxyhemoglobin 93.9 L Sodium Potassium Chloride Carbon Dioxide BUN Creatinine Glucose 195 H POC Glucose Lactic Acid Calcium Phosphorus Magnesium AST ALT Lactate Dehydrogenase Total Bilirubin Direct Bilirubin CK-MB (CK-2) 4.3 H C-Reactive Protein NT-Pro-B Natriuret Pep 1181 H Total Protein Albumin Arterial Blood Glucose Urine WBC (Auto) Urine Creatinine 11/24/19 11/24/19 11/24/19 04:53 04:53 10:37 WBC RBC Hgb Hct MCHC RDW MCV MCH Lymph % (Auto) [place] % (Auto) [place] # Eos # Lymph # (Auto) [place] # (Auto) Eos # (Auto) Seg Neutrophils % Seg Neuts % (Manual) Baso # (Auto) Lymphocytes % (Manual) Monocytes % (Manual) Eosinophils % (Manual) Basophils % (Manual) Seg Neutrophils # Seg Neutrophils # Man Lymphocytes # (Manual) Monocytes # (Manual) Eosinophils # (Manual) Nucleated RBC % Basophils # (Manual) PT INR APTT Heparin Anti-Xa Level ABG pH POC ABG pO2 ABG pO2 ABG HCO3 ABG O2 Saturation ABG Base Excess POC ABG pCO2 ABG Hemoglobin ABG Oxyhemoglobin ABG Chloride ABG Glucose Oxyhemoglobin Sodium Potassium Chloride Carbon Dioxide BUN Creatinine Glucose 162 H POC Glucose Lactic Acid 2.40 H* 2.50 H* Calcium Phosphorus Magnesium AST ALT Lactate Dehydrogenase 240 H Total Bilirubin Direct Bilirubin CK-MB (CK-2) C-Reactive Protein NT-Pro-B Natriuret Pep Total Protein Albumin Arterial Blood Glucose Urine WBC (Auto) Urine Creatinine 11/24/19 11/24/19 11/24/19 12:21 14:50 19:54 WBC RBC Hgb Hct MCHC RDW MCV MCH Lymph % (Auto) [place] % (Auto) [place] # Eos # Lymph # (Auto) [place] # (Auto) Eos # (Auto) Seg Neutrophils % Seg Neuts % (Manual) Baso # (Auto) Lymphocytes % (Manual) Monocytes % (Manual) Eosinophils % (Manual) Basophils % (Manual) Seg Neutrophils # Seg Neutrophils # Man Lymphocytes # (Manual) Monocytes # (Manual) Eosinophils # (Manual) Nucleated RBC % Basophils # (Manual) PT INR APTT Heparin Anti-Xa Level ABG pH POC ABG pO2 ABG pO2 ABG HCO3 ABG O2 Saturation ABG Base Excess POC ABG pCO2 ABG Hemoglobin ABG Oxyhemoglobin ABG Chloride ABG Glucose Oxyhemoglobin Sodium Potassium Chloride Carbon Dioxide BUN Creatinine Glucose POC Glucose 145 H 143 H 124 H Lactic Acid Calcium Phosphorus Magnesium AST ALT Lactate Dehydrogenase Total Bilirubin Direct Bilirubin CK-MB (CK-2) C-Reactive Protein NT-Pro-B Natriuret Pep Total Protein Albumin Arterial Blood Glucose Urine WBC (Auto) Urine Creatinine 11/25/19 11/25/19 11/25/19 00:18 03:18 05:11 WBC 13.7 H RBC Hgb Hct MCHC RDW 17.1 H MCV MCH Lymph % (Auto) 10.8 L [place] % (Auto) 8.7 H [place] # 1.2 H Eos # Lymph # (Auto) [place] # (Auto) Eos # (Auto) Seg Neutrophils % 80.2 H Seg Neuts % (Manual) Baso # (Auto) Lymphocytes % (Manual) Monocytes % (Manual) Eosinophils % (Manual) Basophils % (Manual) Seg Neutrophils # 11.0 H Seg Neutrophils # Man Lymphocytes # (Manual) Monocytes # (Manual) Eosinophils # (Manual) Nucleated RBC % Basophils # (Manual) PT INR APTT Heparin Anti-Xa Level ABG pH 7.333 L POC ABG pO2 ABG pO2 61.2 L ABG HCO3 ABG O2 Saturation 90.2 L ABG Base Excess POC ABG pCO2 ABG Hemoglobin 13.7 L ABG Oxyhemoglobin ABG Chloride ABG Glucose Oxyhemoglobin 88.2 L Sodium Potassium Chloride Carbon Dioxide BUN Creatinine Glucose POC Glucose 109 H Lactic Acid Calcium Phosphorus Magnesium AST ALT Lactate Dehydrogenase Total Bilirubin Direct Bilirubin CK-MB (CK-2) C-Reactive Protein NT-Pro-B Natriuret Pep Total Protein Albumin Arterial Blood Glucose Urine WBC (Auto) Urine Creatinine 11/25/19 11/25/19 11/26/19 05:11 11:40 03:12 WBC RBC Hgb Hct MCHC RDW MCV MCH Lymph % (Auto) [place] % (Auto) [place] # Eos # Lymph # (Auto) [place] # (Auto) Eos # (Auto) Seg Neutrophils % Seg Neuts % (Manual) Baso # (Auto) Lymphocytes % (Manual) Monocytes % (Manual) Eosinophils % (Manual) Basophils % (Manual) Seg Neutrophils # Seg Neutrophils # Man Lymphocytes # (Manual) Monocytes # (Manual) Eosinophils # (Manual) Nucleated RBC % Basophils # (Manual) PT INR APTT Heparin Anti-Xa Level ABG pH POC ABG pO2 ABG pO2 155.1 H ABG HCO3 27.8 H ABG O2 Saturation ABG Base Excess POC ABG pCO2 ABG Hemoglobin 12.2 L ABG Oxyhemoglobin ABG Chloride ABG Glucose Oxyhemoglobin Sodium Potassium Chloride Carbon Dioxide BUN 23 H Creatinine Glucose 110 H POC Glucose 108 H Lactic Acid Calcium Phosphorus Magnesium AST ALT Lactate Dehydrogenase Total Bilirubin Direct Bilirubin CK-MB (CK-2) C-Reactive Protein NT-Pro-B Natriuret Pep Total Protein Albumin Arterial Blood Glucose Urine WBC (Auto) Urine Creatinine 11/26/19 11/26/19 11/26/19 06:17 10:43 10:43 WBC 11.4 H RBC Hgb Hct MCHC RDW 17.1 H MCV MCH Lymph % (Auto) [place] % (Auto) [place] # Eos # Lymph # (Auto) [place] # (Auto) Eos # (Auto) Seg Neutrophils % Seg Neuts % (Manual) Baso # (Auto) Lymphocytes % (Manual) Monocytes % (Manual) Eosinophils % (Manual) Basophils % (Manual) Seg Neutrophils # Seg Neutrophils # Man Lymphocytes # (Manual) Monocytes # (Manual) Eosinophils # (Manual) Nucleated RBC % Basophils # (Manual) PT INR APTT Heparin Anti-Xa Level ABG pH POC ABG pO2 ABG pO2 ABG HCO3 ABG O2 Saturation ABG Base Excess POC ABG pCO2 ABG Hemoglobin ABG Oxyhemoglobin ABG Chloride ABG Glucose Oxyhemoglobin Sodium Potassium Chloride Carbon Dioxide BUN 29 H Creatinine Glucose POC Glucose 107 H Lactic Acid Calcium Phosphorus Magnesium AST ALT Lactate Dehydrogenase Total Bilirubin Direct Bilirubin CK-MB (CK-2) C-Reactive Protein NT-Pro-B Natriuret Pep Total Protein Albumin Arterial Blood Glucose Urine WBC (Auto) Urine Creatinine 11/26/19 11/27/19 11/27/19 17:11 01:53 04:11 WBC RBC Hgb Hct MCHC RDW MCV MCH Lymph % (Auto) [place] % (Auto) [place] # Eos # Lymph # (Auto) [place] # (Auto) Eos # (Auto) Seg Neutrophils % Seg Neuts % (Manual) Baso # (Auto) Lymphocytes % (Manual) Monocytes % (Manual) Eosinophils % (Manual) Basophils % (Manual) Seg Neutrophils # Seg Neutrophils # Man Lymphocytes # (Manual) Monocytes # (Manual) Eosinophils # (Manual) Nucleated RBC % Basophils # (Manual) PT INR APTT Heparin Anti-Xa Level ABG pH POC ABG pO2 ABG pO2 ABG HCO3 29.2 H ABG O2 Saturation ABG Base Excess 3.4 H POC ABG pCO2 ABG Hemoglobin 13.3 L ABG Oxyhemoglobin ABG Chloride ABG Glucose Oxyhemoglobin 94.5 L Sodium Potassium Chloride Carbon Dioxide BUN Creatinine Glucose POC Glucose 113 H 108 H Lactic Acid Calcium Phosphorus Magnesium AST ALT Lactate Dehydrogenase Total Bilirubin Direct Bilirubin CK-MB (CK-2) C-Reactive Protein NT-Pro-B Natriuret Pep Total Protein Albumin Arterial Blood Glucose Urine WBC (Auto) Urine Creatinine 11/27/19 11/28/19 11/28/19 05:27 05:00 05:25 WBC RBC Hgb Hct MCHC RDW MCV MCH Lymph % (Auto) [place] % (Auto) [place] # Eos # Lymph # (Auto) [place] # (Auto) Eos # (Auto) Seg Neutrophils % Seg Neuts % (Manual) Baso # (Auto) Lymphocytes % (Manual) Monocytes % (Manual) Eosinophils % (Manual) Basophils % (Manual) Seg Neutrophils # Seg Neutrophils # Man Lymphocytes # (Manual) Monocytes # (Manual) Eosinophils # (Manual) Nucleated RBC % Basophils # (Manual) PT INR APTT Heparin Anti-Xa Level ABG pH POC ABG pO2 68.1 L ABG pO2 ABG HCO3 ABG O2 Saturation ABG Base Excess POC ABG pCO2 ABG Hemoglobin ABG Oxyhemoglobin 91.2 L ABG Chloride ABG Glucose Oxyhemoglobin Sodium Potassium Chloride Carbon Dioxide BUN Creatinine Glucose POC Glucose 111 H 110 H Lactic Acid Calcium Phosphorus Magnesium AST ALT Lactate Dehydrogenase Total Bilirubin Direct Bilirubin CK-MB (CK-2) C-Reactive Protein NT-Pro-B Natriuret Pep Total Protein Albumin Arterial Blood Glucose Urine WBC (Auto) Urine Creatinine 11/28/19 11/28/19 11/28/19 12:08 13:47 13:47 WBC 11.3 H RBC Hgb Hct MCHC RDW 16.1 H MCV MCH Lymph % (Auto) [place] % (Auto) 9.9 H [place] # 1.1 H Eos # Lymph # (Auto) [place] # (Auto) Eos # (Auto) Seg Neutrophils % 71.4 H Seg Neuts % (Manual) Baso # (Auto) Lymphocytes % (Manual) Monocytes % (Manual) Eosinophils % (Manual) Basophils % (Manual) Seg Neutrophils # 8.1 H Seg Neutrophils # Man Lymphocytes # (Manual) Monocytes # (Manual) Eosinophils # (Manual) Nucleated RBC % Basophils # (Manual) PT INR APTT Heparin Anti-Xa Level ABG pH POC ABG pO2 ABG pO2 ABG HCO3 ABG O2 Saturation ABG Base Excess POC ABG pCO2 ABG Hemoglobin ABG Oxyhemoglobin ABG Chloride ABG Glucose Oxyhemoglobin Sodium Potassium Chloride Carbon Dioxide BUN 23 H Creatinine Glucose 123 H POC Glucose 112 H Lactic Acid Calcium Phosphorus Magnesium AST ALT Lactate Dehydrogenase Total Bilirubin Direct Bilirubin CK-MB (CK-2) C-Reactive Protein NT-Pro-B Natriuret Pep Total Protein Albumin 3.7 L Arterial Blood Glucose Urine WBC (Auto) Urine Creatinine 11/28/19 11/29/19 11/29/19 17:26 03:55 17:04 WBC RBC Hgb Hct MCHC RDW MCV MCH Lymph % (Auto) [place] % (Auto) [place] # Eos # Lymph # (Auto) [place] # (Auto) Eos # (Auto) Seg Neutrophils % Seg Neuts % (Manual) Baso # (Auto) Lymphocytes % (Manual) Monocytes % (Manual) Eosinophils % (Manual) Basophils % (Manual) Seg Neutrophils # Seg Neutrophils # Man Lymphocytes # (Manual) Monocytes # (Manual) Eosinophils # (Manual) Nucleated RBC % Basophils # (Manual) PT INR APTT Heparin Anti-Xa Level ABG pH POC ABG pO2 ABG pO2 65.7 L ABG HCO3 28.3 H ABG O2 Saturation 93.9 L ABG Base Excess 3.6 H POC ABG pCO2 ABG Hemoglobin 13.3 L ABG Oxyhemoglobin ABG Chloride ABG Glucose Oxyhemoglobin 91.5 L Sodium Potassium Chloride Carbon Dioxide BUN Creatinine Glucose POC Glucose 123 H 119 H Lactic Acid Calcium Phosphorus Magnesium AST ALT Lactate Dehydrogenase Total Bilirubin Direct Bilirubin CK-MB (CK-2) C-Reactive Protein NT-Pro-B Natriuret Pep Total Protein Albumin Arterial Blood Glucose Urine WBC (Auto) Urine Creatinine 11/30/19 11/30/19 11/30/19 04:17 04:17 04:56 WBC 13.4 H RBC Hgb Hct MCHC RDW 15.6 H MCV MCH Lymph % (Auto) [place] % (Auto) [place] # Eos # Lymph # (Auto) [place] # (Auto) Eos # (Auto) Seg Neutrophils % Seg Neuts % (Manual) Baso # (Auto) Lymphocytes % (Manual) Monocytes % (Manual) Eosinophils % (Manual) Basophils % (Manual) Seg Neutrophils # Seg Neutrophils # Man Lymphocytes # (Manual) Monocytes # (Manual) Eosinophils # (Manual) Nucleated RBC % Basophils # (Manual) PT INR APTT Heparin Anti-Xa Level ABG pH POC ABG pO2 ABG pO2 56.3 L ABG HCO3 29.3 H ABG O2 Saturation 91.5 L ABG Base Excess 4.7 H POC ABG pCO2 ABG Hemoglobin 12.1 L ABG Oxyhemoglobin ABG Chloride ABG Glucose Oxyhemoglobin 89.2 L Sodium 147 H Potassium Chloride Carbon Dioxide BUN 30 H Creatinine Glucose 124 H POC Glucose Lactic Acid Calcium Phosphorus Magnesium AST ALT Lactate Dehydrogenase Total Bilirubin Direct Bilirubin CK-MB (CK-2) C-Reactive Protein NT-Pro-B Natriuret Pep Total Protein Albumin 3.8 L Arterial Blood Glucose Urine WBC (Auto) Urine Creatinine 11/30/19 11/30/19 11/30/19 05:51 11:54 18:17 WBC RBC Hgb Hct MCHC RDW MCV MCH Lymph % (Auto) [place] % (Auto) [place] # Eos # Lymph # (Auto) [place] # (Auto) Eos # (Auto) Seg Neutrophils % Seg Neuts % (Manual) Baso # (Auto) Lymphocytes % (Manual) Monocytes % (Manual) Eosinophils % (Manual) Basophils % (Manual) Seg Neutrophils # Seg Neutrophils # Man Lymphocytes # (Manual) Monocytes # (Manual) Eosinophils # (Manual) Nucleated RBC % Basophils # (Manual) PT INR APTT Heparin Anti-Xa Level ABG pH POC ABG pO2 ABG pO2 ABG HCO3 ABG O2 Saturation ABG Base Excess POC ABG pCO2 ABG Hemoglobin ABG Oxyhemoglobin ABG Chloride ABG Glucose Oxyhemoglobin Sodium Potassium Chloride Carbon Dioxide BUN Creatinine Glucose POC Glucose 127 H 115 H 143 H Lactic Acid Calcium Phosphorus Magnesium AST ALT Lactate Dehydrogenase Total Bilirubin Direct Bilirubin CK-MB (CK-2) C-Reactive Protein NT-Pro-B Natriuret Pep Total Protein Albumin Arterial Blood Glucose Urine WBC (Auto) Urine Creatinine 12/01/19 12/01/19 12/01/19 01:18 05:22 12:16 WBC RBC Hgb Hct MCHC RDW MCV MCH Lymph % (Auto) [place] % (Auto) [place] # Eos # Lymph # (Auto) [place] # (Auto) Eos # (Auto) Seg Neutrophils % Seg Neuts % (Manual) Baso # (Auto) Lymphocytes % (Manual) Monocytes % (Manual) Eosinophils % (Manual) Basophils % (Manual) Seg Neutrophils # Seg Neutrophils # Man Lymphocytes # (Manual) Monocytes # (Manual) Eosinophils # (Manual) Nucleated RBC % Basophils # (Manual) PT INR APTT Heparin Anti-Xa Level ABG pH POC ABG pO2 ABG pO2 ABG HCO3 ABG O2 Saturation ABG Base Excess POC ABG pCO2 ABG Hemoglobin ABG Oxyhemoglobin ABG Chloride ABG Glucose Oxyhemoglobin Sodium Potassium 3.5 L Chloride 107.8 H Carbon Dioxide BUN 37 H Creatinine Glucose 157 H POC Glucose 118 H 148 H Lactic Acid Calcium 8.2 L D Phosphorus Magnesium AST 48 H ALT 60 H Lactate Dehydrogenase 194 H Total Bilirubin Direct Bilirubin CK-MB (CK-2) C-Reactive Protein 8.50 H NT-Pro-B Natriuret Pep Total Protein 5.5 L Albumin 2.8 L Arterial Blood Glucose Urine WBC (Auto) Urine Creatinine 12/01/19 12/02/19 12/02/19 18:04 00:05 05:16 WBC 11.4 H RBC Hgb Hct MCHC RDW 15.9 H MCV MCH Lymph % (Auto) [place] % (Auto) 9.9 H [place] # 1.1 H Eos # Lymph # (Auto) [place] # (Auto) Eos # (Auto) Seg Neutrophils % 70.3 H Seg Neuts % (Manual) Baso # (Auto) Lymphocytes % (Manual) Monocytes % (Manual) Eosinophils % (Manual) Basophils % (Manual) Seg Neutrophils # 8.0 H Seg Neutrophils # Man Lymphocytes # (Manual) Monocytes # (Manual) Eosinophils # (Manual) Nucleated RBC % Basophils # (Manual) PT INR APTT Heparin Anti-Xa Level ABG pH POC ABG pO2 ABG pO2 ABG HCO3 ABG O2 Saturation ABG Base Excess POC ABG pCO2 ABG Hemoglobin ABG Oxyhemoglobin ABG Chloride ABG Glucose Oxyhemoglobin Sodium Potassium Chloride Carbon Dioxide BUN Creatinine Glucose POC Glucose 143 H 107 H Lactic Acid Calcium Phosphorus Magnesium AST ALT Lactate Dehydrogenase Total Bilirubin Direct Bilirubin CK-MB (CK-2) C-Reactive Protein NT-Pro-B Natriuret Pep Total Protein Albumin Arterial Blood Glucose Urine WBC (Auto) Urine Creatinine 12/02/19 12/02/19 12/02/19 05:16 06:03 11:52 WBC RBC Hgb Hct MCHC RDW MCV MCH Lymph % (Auto) [place] % (Auto) [place] # Eos # Lymph # (Auto) [place] # (Auto) Eos # (Auto) Seg Neutrophils % Seg Neuts % (Manual) Baso # (Auto) Lymphocytes % (Manual) Monocytes % (Manual) Eosinophils % (Manual) Basophils % (Manual) Seg Neutrophils # Seg Neutrophils # Man Lymphocytes # (Manual) Monocytes # (Manual) Eosinophils # (Manual) Nucleated RBC % Basophils # (Manual) PT INR APTT Heparin Anti-Xa Level ABG pH POC ABG pO2 ABG pO2 ABG HCO3 ABG O2 Saturation ABG Base Excess POC ABG pCO2 ABG Hemoglobin ABG Oxyhemoglobin ABG Chloride ABG Glucose Oxyhemoglobin Sodium 146 H Potassium Chloride Carbon Dioxide BUN 28 H Creatinine Glucose 123 H POC Glucose 110 H 152 H Lactic Acid Calcium Phosphorus Magnesium AST ALT Lactate Dehydrogenase Total Bilirubin Direct Bilirubin CK-MB (CK-2) C-Reactive Protein NT-Pro-B Natriuret Pep Total Protein Albumin Arterial Blood Glucose Urine WBC (Auto) Urine Creatinine 12/02/19 12/02/19 12/02/19 12:58 17:58 23:36 WBC RBC Hgb Hct MCHC RDW MCV MCH Lymph % (Auto) [place] % (Auto) [place] # Eos # Lymph # (Auto) [place] # (Auto) Eos # (Auto) Seg Neutrophils % Seg Neuts % (Manual) Baso # (Auto) Lymphocytes % (Manual) Monocytes % (Manual) Eosinophils % (Manual) Basophils % (Manual) Seg Neutrophils # Seg Neutrophils # Man Lymphocytes # (Manual) Monocytes # (Manual) Eosinophils # (Manual) Nucleated RBC % Basophils # (Manual) PT INR APTT Heparin Anti-Xa Level ABG pH POC ABG pO2 78.1 L ABG pO2 ABG HCO3 ABG O2 Saturation ABG Base Excess POC ABG pCO2 ABG Hemoglobin ABG Oxyhemoglobin ABG Chloride ABG Glucose Oxyhemoglobin Sodium Potassium Chloride Carbon Dioxide BUN Creatinine Glucose POC Glucose 120 H 123 H Lactic Acid Calcium Phosphorus Magnesium AST ALT Lactate Dehydrogenase Total Bilirubin Direct Bilirubin CK-MB (CK-2) C-Reactive Protein NT-Pro-B Natriuret Pep Total Protein Albumin Arterial Blood Glucose Urine WBC (Auto) Urine Creatinine 12/03/19 12/03/19 12/03/19 06:03 06:14 11:46 WBC RBC Hgb Hct MCHC RDW MCV MCH Lymph % (Auto) [place] % (Auto) [place] # Eos # Lymph # (Auto) [place] # (Auto) Eos # (Auto) Seg Neutrophils % Seg Neuts % (Manual) Baso # (Auto) Lymphocytes % (Manual) Monocytes % (Manual) Eosinophils % (Manual) Basophils % (Manual) Seg Neutrophils # Seg Neutrophils # Man Lymphocytes # (Manual) Monocytes # (Manual) Eosinophils # (Manual) Nucleated RBC % Basophils # (Manual) PT INR APTT Heparin Anti-Xa Level ABG pH POC ABG pO2 ABG pO2 ABG HCO3 ABG O2 Saturation ABG Base Excess POC ABG pCO2 ABG Hemoglobin ABG Oxyhemoglobin ABG Chloride ABG Glucose Oxyhemoglobin Sodium Potassium Chloride Carbon Dioxide BUN Creatinine Glucose POC Glucose 142 H 130 H Lactic Acid Calcium Phosphorus Magnesium AST ALT Lactate Dehydrogenase Total Bilirubin Direct Bilirubin CK-MB (CK-2) C-Reactive Protein NT-Pro-B Natriuret Pep Total Protein Albumin Arterial Blood Glucose Urine WBC (Auto) 8.0 H Urine Creatinine 12/03/19 12/03/19 12/04/19 15:50 17:39 00:04 WBC RBC Hgb Hct MCHC RDW MCV MCH Lymph % (Auto) [place] % (Auto) [place] # Eos # Lymph # (Auto) [place] # (Auto) Eos # (Auto) Seg Neutrophils % Seg Neuts % (Manual) Baso # (Auto) Lymphocytes % (Manual) Monocytes % (Manual) Eosinophils % (Manual) Basophils % (Manual) Seg Neutrophils # Seg Neutrophils # Man Lymphocytes # (Manual) Monocytes # (Manual) Eosinophils # (Manual) Nucleated RBC % Basophils # (Manual) PT INR APTT Heparin Anti-Xa Level ABG pH POC ABG pO2 ABG pO2 ABG HCO3 ABG O2 Saturation ABG Base Excess POC ABG pCO2 ABG Hemoglobin ABG Oxyhemoglobin ABG Chloride ABG Glucose Oxyhemoglobin Sodium Potassium Chloride Carbon Dioxide BUN Creatinine Glucose POC Glucose 146 H 133 H Lactic Acid Calcium Phosphorus 2.40 L Magnesium AST ALT Lactate Dehydrogenase Total Bilirubin Direct Bilirubin CK-MB (CK-2) C-Reactive Protein NT-Pro-B Natriuret Pep Total Protein Albumin Arterial Blood Glucose Urine WBC (Auto) Urine Creatinine 12/04/19 12/04/19 12/04/19 03:58 03:58 05:22 WBC 12.5 H RBC Hgb 11.2 L Hct 35.2 L MCHC RDW 16.0 H MCV MCH Lymph % (Auto) [place] % (Auto) 9.6 H [place] # 1.2 H Eos # 0.5 H Lymph # (Auto) [place] # (Auto) Eos # (Auto) Seg Neutrophils % Seg Neuts % (Manual) Baso # (Auto) Lymphocytes % (Manual) Monocytes % (Manual) Eosinophils % (Manual) Basophils % (Manual) Seg Neutrophils # 8.6 H Seg Neutrophils # Man Lymphocytes # (Manual) Monocytes # (Manual) Eosinophils # (Manual) Nucleated RBC % Basophils # (Manual) PT INR APTT Heparin Anti-Xa Level ABG pH POC ABG pO2 ABG pO2 ABG HCO3 ABG O2 Saturation ABG Base Excess POC ABG pCO2 ABG Hemoglobin ABG Oxyhemoglobin ABG Chloride ABG Glucose Oxyhemoglobin Sodium 146 H Potassium Chloride 108.6 H Carbon Dioxide BUN 30 H Creatinine 0.7 L Glucose 121 H POC Glucose 132 H Lactic Acid Calcium Phosphorus Magnesium AST ALT Lactate Dehydrogenase Total Bilirubin Direct Bilirubin CK-MB (CK-2) C-Reactive Protein NT-Pro-B Natriuret Pep Total Protein Albumin Arterial Blood Glucose Urine WBC (Auto) Urine Creatinine 12/04/19 12/04/19 12/05/19 13:26 18:43 00:19 WBC RBC Hgb Hct MCHC RDW MCV MCH Lymph % (Auto) [place] % (Auto) [place] # Eos # Lymph # (Auto) [place] # (Auto) Eos # (Auto) Seg Neutrophils % Seg Neuts % (Manual) Baso # (Auto) Lymphocytes % (Manual) Monocytes % (Manual) Eosinophils % (Manual) Basophils % (Manual) Seg Neutrophils # Seg Neutrophils # Man Lymphocytes # (Manual) Monocytes # (Manual) Eosinophils # (Manual) Nucleated RBC % Basophils # (Manual) PT INR APTT Heparin Anti-Xa Level ABG pH POC ABG pO2 ABG pO2 ABG HCO3 ABG O2 Saturation ABG Base Excess POC ABG pCO2 ABG Hemoglobin ABG Oxyhemoglobin ABG Chloride ABG Glucose Oxyhemoglobin Sodium Potassium Chloride Carbon Dioxide BUN Creatinine Glucose POC Glucose 185 H 156 H 150 H Lactic Acid Calcium Phosphorus Magnesium AST ALT Lactate Dehydrogenase Total Bilirubin Direct Bilirubin CK-MB (CK-2) C-Reactive Protein NT-Pro-B Natriuret Pep Total Protein Albumin Arterial Blood Glucose Urine WBC (Auto) Urine Creatinine 12/05/19 12/05/19 12/05/19 03:37 03:37 05:14 WBC 16.3 H RBC Hgb 11.4 L Hct MCHC RDW 15.6 H MCV MCH Lymph % (Auto) 9.9 L [place] % (Auto) 9.7 H [place] # 1.6 H Eos # Lymph # (Auto) [place] # (Auto) Eos # (Auto) Seg Neutrophils % 78.0 H Seg Neuts % (Manual) Baso # (Auto) Lymphocytes % (Manual) Monocytes % (Manual) Eosinophils % (Manual) Basophils % (Manual) Seg Neutrophils # 12.7 H Seg Neutrophils # Man Lymphocytes # (Manual) Monocytes # (Manual) Eosinophils # (Manual) Nucleated RBC % Basophils # (Manual) PT INR APTT Heparin Anti-Xa Level ABG pH POC ABG pO2 ABG pO2 ABG HCO3 ABG O2 Saturation ABG Base Excess POC ABG pCO2 ABG Hemoglobin ABG Oxyhemoglobin ABG Chloride ABG Glucose Oxyhemoglobin Sodium 146 H Potassium Chloride 107.2 H Carbon Dioxide BUN 27 H Creatinine 0.7 L Glucose 171 H POC Glucose 168 H Lactic Acid Calcium Phosphorus Magnesium AST ALT Lactate Dehydrogenase Total Bilirubin Direct Bilirubin CK-MB (CK-2) C-Reactive Protein NT-Pro-B Natriuret Pep Total Protein Albumin Arterial Blood Glucose Urine WBC (Auto) Urine Creatinine 12/05/19 12/05/19 12/05/19 12:31 18:10 23:58 WBC RBC Hgb Hct MCHC RDW MCV MCH Lymph % (Auto) [place] % (Auto) [place] # Eos # Lymph # (Auto) [place] # (Auto) Eos # (Auto) Seg Neutrophils % Seg Neuts % (Manual) Baso # (Auto) Lymphocytes % (Manual) Monocytes % (Manual) Eosinophils % (Manual) Basophils % (Manual) Seg Neutrophils # Seg Neutrophils # Man Lymphocytes # (Manual) Monocytes # (Manual) Eosinophils # (Manual) Nucleated RBC % Basophils # (Manual) PT INR APTT Heparin Anti-Xa Level ABG pH POC ABG pO2 ABG pO2 ABG HCO3 ABG O2 Saturation ABG Base Excess POC ABG pCO2 ABG Hemoglobin ABG Oxyhemoglobin ABG Chloride ABG Glucose Oxyhemoglobin Sodium Potassium Chloride Carbon Dioxide BUN Creatinine Glucose POC Glucose 159 H 198 H 115 H Lactic Acid Calcium Phosphorus Magnesium AST ALT Lactate Dehydrogenase Total Bilirubin Direct Bilirubin CK-MB (CK-2) C-Reactive Protein NT-Pro-B Natriuret Pep Total Protein Albumin Arterial Blood Glucose Urine WBC (Auto) Urine Creatinine 12/06/19 12/06/19 12/06/19 05:24 05:24 05:25 WBC 14.9 H RBC Hgb 10.8 L Hct 34.0 L MCHC RDW 15.6 H MCV MCH Lymph % (Auto) 10.7 L [place] % (Auto) 8.3 H [place] # 1.2 H Eos # Lymph # (Auto) [place] # (Auto) Eos # (Auto) Seg Neutrophils % 78.7 H Seg Neuts % (Manual) Baso # (Auto) Lymphocytes % (Manual) Monocytes % (Manual) Eosinophils % (Manual) Basophils % (Manual) Seg Neutrophils # 11.7 H Seg Neutrophils # Man Lymphocytes # (Manual) Monocytes # (Manual) Eosinophils # (Manual) Nucleated RBC % Basophils # (Manual) PT INR APTT Heparin Anti-Xa Level ABG pH POC ABG pO2 ABG pO2 ABG HCO3 ABG O2 Saturation ABG Base Excess POC ABG pCO2 ABG Hemoglobin ABG Oxyhemoglobin ABG Chloride ABG Glucose Oxyhemoglobin Sodium 148 H Potassium 5.1 H Chloride 107.6 H Carbon Dioxide BUN 27 H Creatinine 0.7 L Glucose 155 H POC Glucose 157 H Lactic Acid Calcium Phosphorus Magnesium AST ALT Lactate Dehydrogenase Total Bilirubin Direct Bilirubin CK-MB (CK-2) C-Reactive Protein NT-Pro-B Natriuret Pep Total Protein Albumin Arterial Blood Glucose Urine WBC (Auto) Urine Creatinine 12/07/19 12/07/19 12/07/19 00:13 05:34 11:33 WBC RBC Hgb Hct MCHC RDW MCV MCH Lymph % (Auto) [place] % (Auto) [place] # Eos # Lymph # (Auto) [place] # (Auto) Eos # (Auto) Seg Neutrophils % Seg Neuts % (Manual) Baso # (Auto) Lymphocytes % (Manual) Monocytes % (Manual) Eosinophils % (Manual) Basophils % (Manual) Seg Neutrophils # Seg Neutrophils # Man Lymphocytes # (Manual) Monocytes # (Manual) Eosinophils # (Manual) Nucleated RBC % Basophils # (Manual) PT INR APTT Heparin Anti-Xa Level ABG pH POC ABG pO2 ABG pO2 ABG HCO3 ABG O2 Saturation ABG Base Excess POC ABG pCO2 ABG Hemoglobin ABG Oxyhemoglobin ABG Chloride ABG Glucose Oxyhemoglobin Sodium Potassium Chloride Carbon Dioxide BUN Creatinine Glucose POC Glucose 142 H 111 H 169 H Lactic Acid Calcium Phosphorus Magnesium AST ALT Lactate Dehydrogenase Total Bilirubin Direct Bilirubin CK-MB (CK-2) C-Reactive Protein NT-Pro-B Natriuret Pep Total Protein Albumin Arterial Blood Glucose Urine WBC (Auto) Urine Creatinine 12/07/19 12/07/19 12/07/19 12:41 13:25 18:19 WBC 12.4 H RBC 3.53 L Hgb 10.2 L Hct 32.1 L MCHC RDW 15.3 H MCV MCH Lymph % (Auto) 10.6 L [place] % (Auto) 7.8 H [place] # 1.0 H Eos # Lymph # (Auto) [place] # (Auto) Eos # (Auto) Seg Neutrophils % 77.6 H Seg Neuts % (Manual) Baso # (Auto) Lymphocytes % (Manual) Monocytes % (Manual) Eosinophils % (Manual) Basophils % (Manual) Seg Neutrophils # 9.6 H Seg Neutrophils # Man Lymphocytes # (Manual) Monocytes # (Manual) Eosinophils # (Manual) Nucleated RBC % Basophils # (Manual) PT INR APTT Heparin Anti-Xa Level ABG pH POC ABG pO2 ABG pO2 ABG HCO3 ABG O2 Saturation ABG Base Excess POC ABG pCO2 ABG Hemoglobin ABG Oxyhemoglobin ABG Chloride ABG Glucose Oxyhemoglobin Sodium 149 H Potassium Chloride 108.4 H Carbon Dioxide BUN 26 H Creatinine 0.6 L Glucose 149 H POC Glucose 164 H Lactic Acid Calcium Phosphorus Magnesium 2.60 H AST 121 H ALT 145 H Lactate Dehydrogenase Total Bilirubin Direct Bilirubin CK-MB (CK-2) C-Reactive Protein NT-Pro-B Natriuret Pep Total Protein Albumin 2.6 L Arterial Blood Glucose Urine WBC (Auto) Urine Creatinine 12/07/19 12/08/19 12/08/19 22:25 00:02 03:55 WBC 13.3 H RBC 3.40 L Hgb 9.7 L Hct 30.8 L MCHC 31 L RDW 15.5 H MCV MCH Lymph % (Auto) [place] % (Auto) 8.1 H [place] # 1.1 H Eos # Lymph # (Auto) [place] # (Auto) Eos # (Auto) Seg Neutrophils % 73.0 H Seg Neuts % (Manual) Baso # (Auto) Lymphocytes % (Manual) Monocytes % (Manual) Eosinophils % (Manual) Basophils % (Manual) Seg Neutrophils # 9.7 H Seg Neutrophils # Man Lymphocytes # (Manual) Monocytes # (Manual) Eosinophils # (Manual) Nucleated RBC % Basophils # (Manual) PT INR APTT Heparin Anti-Xa Level 0.12 L ABG pH POC ABG pO2 ABG pO2 ABG HCO3 ABG O2 Saturation ABG Base Excess POC ABG pCO2 ABG Hemoglobin ABG Oxyhemoglobin ABG Chloride ABG Glucose Oxyhemoglobin Sodium Potassium Chloride Carbon Dioxide BUN Creatinine Glucose POC Glucose 151 H Lactic Acid Calcium Phosphorus Magnesium AST ALT Lactate Dehydrogenase Total Bilirubin Direct Bilirubin CK-MB (CK-2) C-Reactive Protein NT-Pro-B Natriuret Pep Total Protein Albumin Arterial Blood Glucose Urine WBC (Auto) Urine Creatinine 12/08/19 12/08/19 12/08/19 03:55 05:21 06:01 WBC RBC Hgb Hct MCHC RDW MCV MCH Lymph % (Auto) [place] % (Auto) [place] # Eos # Lymph # (Auto) [place] # (Auto) Eos # (Auto) Seg Neutrophils % Seg Neuts % (Manual) Baso # (Auto) Lymphocytes % (Manual) Monocytes % (Manual) Eosinophils % (Manual) Basophils % (Manual) Seg Neutrophils # Seg Neutrophils # Man Lymphocytes # (Manual) Monocytes # (Manual) Eosinophils # (Manual) Nucleated RBC % Basophils # (Manual) PT INR APTT Heparin Anti-Xa Level 0.20 L ABG pH POC ABG pO2 ABG pO2 ABG HCO3 ABG O2 Saturation ABG Base Excess POC ABG pCO2 ABG Hemoglobin ABG Oxyhemoglobin ABG Chloride ABG Glucose Oxyhemoglobin Sodium 149 H Potassium Chloride 108.0 H Carbon Dioxide BUN 28 H Creatinine 0.6 L Glucose 144 H POC Glucose 143 H Lactic Acid Calcium Phosphorus Magnesium AST 98 H ALT 145 H Lactate Dehydrogenase Total Bilirubin Direct Bilirubin CK-MB (CK-2) C-Reactive Protein NT-Pro-B Natriuret Pep Total Protein 6.0 L Albumin 2.4 L Arterial Blood Glucose Urine WBC (Auto) Urine Creatinine 12/08/19 12/08/19 12/08/19 12:08 18:11 23:53 WBC RBC Hgb Hct MCHC RDW MCV MCH Lymph % (Auto) [place] % (Auto) [place] # Eos # Lymph # (Auto) [place] # (Auto) Eos # (Auto) Seg Neutrophils % Seg Neuts % (Manual) Baso # (Auto) Lymphocytes % (Manual) Monocytes % (Manual) Eosinophils % (Manual) Basophils % (Manual) Seg Neutrophils # Seg Neutrophils # Man Lymphocytes # (Manual) Monocytes # (Manual) Eosinophils # (Manual) Nucleated RBC % Basophils # (Manual) PT INR APTT Heparin Anti-Xa Level ABG pH POC ABG pO2 ABG pO2 ABG HCO3 ABG O2 Saturation ABG Base Excess POC ABG pCO2 ABG Hemoglobin ABG Oxyhemoglobin ABG Chloride ABG Glucose Oxyhemoglobin Sodium Potassium Chloride Carbon Dioxide BUN Creatinine Glucose POC Glucose 172 H 122 H 162 H Lactic Acid Calcium Phosphorus Magnesium AST ALT Lactate Dehydrogenase Total Bilirubin Direct Bilirubin CK-MB (CK-2) C-Reactive Protein NT-Pro-B Natriuret Pep Total Protein Albumin Arterial Blood Glucose Urine WBC (Auto) Urine Creatinine 12/09/19 12/09/19 12/09/19 04:03 04:03 05:53 WBC RBC Hgb 9.1 L Hct 28.9 L MCHC RDW MCV MCH Lymph % (Auto) [place] % (Auto) [place] # Eos # Lymph # (Auto) [place] # (Auto) Eos # (Auto) Seg Neutrophils % Seg Neuts % (Manual) Baso # (Auto) Lymphocytes % (Manual) Monocytes % (Manual) Eosinophils % (Manual) Basophils % (Manual) Seg Neutrophils # Seg Neutrophils # Man Lymphocytes # (Manual) Monocytes # (Manual) Eosinophils # (Manual) Nucleated RBC % Basophils # (Manual) PT INR APTT Heparin Anti-Xa Level 0.15 L ABG pH POC ABG pO2 ABG pO2 ABG HCO3 ABG O2 Saturation ABG Base Excess POC ABG pCO2 ABG Hemoglobin ABG Oxyhemoglobin ABG Chloride ABG Glucose Oxyhemoglobin Sodium Potassium Chloride Carbon Dioxide BUN Creatinine Glucose POC Glucose 124 H Lactic Acid Calcium Phosphorus Magnesium AST ALT Lactate Dehydrogenase Total Bilirubin Direct Bilirubin CK-MB (CK-2) C-Reactive Protein NT-Pro-B Natriuret Pep Total Protein Albumin Arterial Blood Glucose Urine WBC (Auto) Urine Creatinine 12/09/19 12/09/19 12/10/19 09:43 12:41 00:13 WBC RBC Hgb Hct MCHC RDW MCV MCH Lymph % (Auto) [place] % (Auto) [place] # Eos # Lymph # (Auto) [place] # (Auto) Eos # (Auto) Seg Neutrophils % Seg Neuts % (Manual) Baso # (Auto) Lymphocytes % (Manual) Monocytes % (Manual) Eosinophils % (Manual) Basophils % (Manual) Seg Neutrophils # Seg Neutrophils # Man Lymphocytes # (Manual) Monocytes # (Manual) Eosinophils # (Manual) Nucleated RBC % Basophils # (Manual) PT INR APTT Heparin Anti-Xa Level ABG pH POC ABG pO2 ABG pO2 ABG HCO3 ABG O2 Saturation ABG Base Excess POC ABG pCO2 ABG Hemoglobin ABG Oxyhemoglobin ABG Chloride ABG Glucose Oxyhemoglobin Sodium Potassium Chloride Carbon Dioxide BUN 25 H Creatinine 0.6 L Glucose 131 H POC Glucose 109 H 120 H Lactic Acid Calcium Phosphorus Magnesium AST ALT Lactate Dehydrogenase Total Bilirubin Direct Bilirubin CK-MB (CK-2) C-Reactive Protein NT-Pro-B Natriuret Pep Total Protein Albumin Arterial Blood Glucose Urine WBC (Auto) Urine Creatinine 12/10/19 12/10/19 12/10/19 04:14 04:14 12:00 WBC 13.3 H RBC 3.34 L Hgb 9.6 L Hct 30.4 L MCHC RDW 15.4 H MCV MCH Lymph % (Auto) [place] % (Auto) [place] # Eos # Lymph # (Auto) [place] # (Auto) Eos # (Auto) Seg Neutrophils % Seg Neuts % (Manual) 75.0 H Baso # (Auto) Lymphocytes % (Manual) 13.0 L Monocytes % (Manual) 8.0 H Eosinophils % (Manual) Basophils % (Manual) 2.0 H Seg Neutrophils # Seg Neutrophils # Man 10.0 H Lymphocytes # (Manual) Monocytes # (Manual) 1.1 H Eosinophils # (Manual) Nucleated RBC % Basophils # (Manual) 0.3 H PT INR APTT Heparin Anti-Xa Level ABG pH POC ABG pO2 ABG pO2 ABG HCO3 ABG O2 Saturation ABG Base Excess POC ABG pCO2 ABG Hemoglobin ABG Oxyhemoglobin ABG Chloride ABG Glucose Oxyhemoglobin Sodium 147 H Potassium Chloride 108.3 H Carbon Dioxide BUN 21 H Creatinine 0.6 L Glucose 104 H POC Glucose 133 H Lactic Acid Calcium Phosphorus Magnesium AST ALT Lactate Dehydrogenase Total Bilirubin Direct Bilirubin CK-MB (CK-2) C-Reactive Protein NT-Pro-B Natriuret Pep Total Protein Albumin Arterial Blood Glucose Urine WBC (Auto) Urine Creatinine 12/10/19 12/10/19 12/11/19 18:44 21:20 00:08 WBC 14.9 H RBC 3.36 L Hgb 9.6 L Hct 30.5 L MCHC RDW 15.4 H MCV MCH Lymph % (Auto) [place] % (Auto) [place] # Eos # Lymph # (Auto) [place] # (Auto) Eos # (Auto) Seg Neutrophils % Seg Neuts % (Manual) Baso # (Auto) Lymphocytes % (Manual) Monocytes % (Manual) Eosinophils % (Manual) Basophils % (Manual) Seg Neutrophils # Seg Neutrophils # Man Lymphocytes # (Manual) Monocytes # (Manual) Eosinophils # (Manual) Nucleated RBC % Basophils # (Manual) PT INR APTT Heparin Anti-Xa Level ABG pH POC ABG pO2 ABG pO2 ABG HCO3 ABG O2 Saturation ABG Base Excess POC ABG pCO2 ABG Hemoglobin ABG Oxyhemoglobin ABG Chloride ABG Glucose Oxyhemoglobin Sodium Potassium Chloride Carbon Dioxide BUN Creatinine Glucose POC Glucose 119 H 134 H Lactic Acid Calcium Phosphorus Magnesium AST ALT Lactate Dehydrogenase Total Bilirubin Direct Bilirubin CK-MB (CK-2) C-Reactive Protein NT-Pro-B Natriuret Pep Total Protein Albumin Arterial Blood Glucose Urine WBC (Auto) Urine Creatinine 12/11/19 12/11/19 12/11/19 03:54 07:28 08:36 WBC 11.9 H RBC 3.25 L Hgb 9.6 L Hct 29.2 L MCHC RDW 15.7 H MCV MCH Lymph % (Auto) [place] % (Auto) [place] # Eos # Lymph # (Auto) [place] # (Auto) Eos # (Auto) Seg Neutrophils % Seg Neuts % (Manual) Baso # (Auto) Lymphocytes % (Manual) Monocytes % (Manual) Eosinophils % (Manual) Basophils % (Manual) Seg Neutrophils # Seg Neutrophils # Man Lymphocytes # (Manual) Monocytes # (Manual) Eosinophils # (Manual) Nucleated RBC % Basophils # (Manual) PT INR APTT Heparin Anti-Xa Level 0.10 L 0.16 L ABG pH POC ABG pO2 ABG pO2 ABG HCO3 ABG O2 Saturation ABG Base Excess POC ABG pCO2 ABG Hemoglobin ABG Oxyhemoglobin ABG Chloride ABG Glucose Oxyhemoglobin Sodium Potassium Chloride Carbon Dioxide BUN Creatinine Glucose POC Glucose Lactic Acid Calcium Phosphorus Magnesium AST ALT Lactate Dehydrogenase Total Bilirubin Direct Bilirubin CK-MB (CK-2) C-Reactive Protein NT-Pro-B Natriuret Pep Total Protein Albumin Arterial Blood Glucose Urine WBC (Auto) Urine Creatinine 12/11/19 12/11/19 12/11/19 08:36 11:45 17:15 WBC RBC Hgb Hct MCHC RDW MCV MCH Lymph % (Auto) [place] % (Auto) [place] # Eos # Lymph # (Auto) [place] # (Auto) Eos # (Auto) Seg Neutrophils % Seg Neuts % (Manual) Baso # (Auto) Lymphocytes % (Manual) Monocytes % (Manual) Eosinophils % (Manual) Basophils % (Manual) Seg Neutrophils # Seg Neutrophils # Man Lymphocytes # (Manual) Monocytes # (Manual) Eosinophils # (Manual) Nucleated RBC % Basophils # (Manual) PT INR APTT Heparin Anti-Xa Level ABG pH POC ABG pO2 ABG pO2 ABG HCO3 ABG O2 Saturation ABG Base Excess POC ABG pCO2 ABG Hemoglobin ABG Oxyhemoglobin ABG Chloride ABG Glucose Oxyhemoglobin Sodium Potassium Chloride Carbon Dioxide BUN Creatinine 0.5 L Glucose 128 H POC Glucose 136 H 109 H Lactic Acid Calcium Phosphorus Magnesium AST ALT Lactate Dehydrogenase Total Bilirubin Direct Bilirubin CK-MB (CK-2) C-Reactive Protein NT-Pro-B Natriuret Pep Total Protein Albumin Arterial Blood Glucose Urine WBC (Auto) Urine Creatinine 12/12/19 12/12/19 12/12/19 00:03 05:53 05:53 WBC RBC Hgb 8.8 L Hct 27.6 L MCHC RDW MCV MCH Lymph % (Auto) [place] % (Auto) [place] # Eos # Lymph # (Auto) [place] # (Auto) Eos # (Auto) Seg Neutrophils % Seg Neuts % (Manual) Baso # (Auto) Lymphocytes % (Manual) Monocytes % (Manual) Eosinophils % (Manual) Basophils % (Manual) Seg Neutrophils # Seg Neutrophils # Man Lymphocytes # (Manual) Monocytes # (Manual) Eosinophils # (Manual) Nucleated RBC % Basophils # (Manual) PT INR APTT Heparin Anti-Xa Level 0.22 L ABG pH POC ABG pO2 ABG pO2 ABG HCO3 ABG O2 Saturation ABG Base Excess POC ABG pCO2 ABG Hemoglobin ABG Oxyhemoglobin ABG Chloride ABG Glucose Oxyhemoglobin Sodium Potassium Chloride Carbon Dioxide BUN Creatinine Glucose POC Glucose 116 H Lactic Acid Calcium Phosphorus Magnesium AST ALT Lactate Dehydrogenase Total Bilirubin Direct Bilirubin CK-MB (CK-2) C-Reactive Protein NT-Pro-B Natriuret Pep Total Protein Albumin Arterial Blood Glucose Urine WBC (Auto) Urine Creatinine 12/12/19 12/12/19 12/12/19 09:38 12:18 17:44 WBC RBC Hgb Hct MCHC RDW MCV MCH Lymph % (Auto) [place] % (Auto) [place] # Eos # Lymph # (Auto) [place] # (Auto) Eos # (Auto) Seg Neutrophils % Seg Neuts % (Manual) Baso # (Auto) Lymphocytes % (Manual) Monocytes % (Manual) Eosinophils % (Manual) Basophils % (Manual) Seg Neutrophils # Seg Neutrophils # Man Lymphocytes # (Manual) Monocytes # (Manual) Eosinophils # (Manual) Nucleated RBC % Basophils # (Manual) PT INR APTT Heparin Anti-Xa Level ABG pH POC ABG pO2 ABG pO2 ABG HCO3 ABG O2 Saturation ABG Base Excess POC ABG pCO2 ABG Hemoglobin ABG Oxyhemoglobin ABG Chloride ABG Glucose Oxyhemoglobin Sodium Potassium Chloride Carbon Dioxide BUN Creatinine Glucose POC Glucose 115 H 146 H 146 H Lactic Acid Calcium Phosphorus Magnesium AST ALT Lactate Dehydrogenase Total Bilirubin Direct Bilirubin CK-MB (CK-2) C-Reactive Protein NT-Pro-B Natriuret Pep Total Protein Albumin Arterial Blood Glucose Urine WBC (Auto) Urine Creatinine 12/12/19 12/13/19 12/13/19 23:33 05:32 05:32 WBC 13.1 H RBC 3.27 L Hgb 9.5 L Hct 29.3 L MCHC RDW 15.6 H MCV MCH Lymph % (Auto) [place] % (Auto) [place] # Eos # Lymph # (Auto) [place] # (Auto) Eos # (Auto) Seg Neutrophils % Seg Neuts % (Manual) 74.0 H Baso # (Auto) Lymphocytes % (Manual) 8.0 L Monocytes % (Manual) 9.0 H Eosinophils % (Manual) 5.0 H Basophils % (Manual) Seg Neutrophils # Seg Neutrophils # Man 9.7 H Lymphocytes # (Manual) 1.0 L Monocytes # (Manual) 1.2 H Eosinophils # (Manual) 0.7 H Nucleated RBC % Basophils # (Manual) PT INR APTT Heparin Anti-Xa Level 0.20 L ABG pH POC ABG pO2 ABG pO2 ABG HCO3 ABG O2 Saturation ABG Base Excess POC ABG pCO2 ABG Hemoglobin ABG Oxyhemoglobin ABG Chloride ABG Glucose Oxyhemoglobin Sodium Potassium Chloride Carbon Dioxide BUN Creatinine Glucose POC Glucose 126 H Lactic Acid Calcium Phosphorus Magnesium AST ALT Lactate Dehydrogenase Total Bilirubin Direct Bilirubin CK-MB (CK-2) C-Reactive Protein NT-Pro-B Natriuret Pep Total Protein Albumin Arterial Blood Glucose Urine WBC (Auto) Urine Creatinine 12/13/19 12/13/19 12/13/19 05:32 05:46 11:57 WBC RBC Hgb Hct MCHC RDW MCV MCH Lymph % (Auto) [place] % (Auto) [place] # Eos # Lymph # (Auto) [place] # (Auto) Eos # (Auto) Seg Neutrophils % Seg Neuts % (Manual) Baso # (Auto) Lymphocytes % (Manual) Monocytes % (Manual) Eosinophils % (Manual) Basophils % (Manual) Seg Neutrophils # Seg Neutrophils # Man Lymphocytes # (Manual) Monocytes # (Manual) Eosinophils # (Manual) Nucleated RBC % Basophils # (Manual) PT INR APTT Heparin Anti-Xa Level ABG pH POC ABG pO2 ABG pO2 ABG HCO3 ABG O2 Saturation ABG Base Excess POC ABG pCO2 ABG Hemoglobin ABG Oxyhemoglobin ABG Chloride ABG Glucose Oxyhemoglobin Sodium Potassium Chloride Carbon Dioxide 31 H BUN Creatinine 0.6 L Glucose 114 H POC Glucose 118 H 133 H Lactic Acid Calcium Phosphorus Magnesium AST ALT Lactate Dehydrogenase Total Bilirubin Direct Bilirubin CK-MB (CK-2) C-Reactive Protein NT-Pro-B Natriuret Pep Total Protein Albumin Arterial Blood Glucose Urine WBC (Auto) Urine Creatinine 12/13/19 12/13/19 12/14/19 17:44 23:46 05:32 WBC RBC Hgb Hct MCHC RDW MCV MCH Lymph % (Auto) [place] % (Auto) [place] # Eos # Lymph # (Auto) [place] # (Auto) Eos # (Auto) Seg Neutrophils % Seg Neuts % (Manual) Baso # (Auto) Lymphocytes % (Manual) Monocytes % (Manual) Eosinophils % (Manual) Basophils % (Manual) Seg Neutrophils # Seg Neutrophils # Man Lymphocytes # (Manual) Monocytes # (Manual) Eosinophils # (Manual) Nucleated RBC % Basophils # (Manual) PT INR APTT Heparin Anti-Xa Level ABG pH POC ABG pO2 ABG pO2 ABG HCO3 ABG O2 Saturation ABG Base Excess POC ABG pCO2 ABG Hemoglobin ABG Oxyhemoglobin ABG Chloride ABG Glucose Oxyhemoglobin Sodium Potassium Chloride Carbon Dioxide BUN Creatinine Glucose POC Glucose 161 H 126 H 139 H Lactic Acid Calcium Phosphorus Magnesium AST ALT Lactate Dehydrogenase Total Bilirubin Direct Bilirubin CK-MB (CK-2) C-Reactive Protein NT-Pro-B Natriuret Pep Total Protein Albumin Arterial Blood Glucose Urine WBC (Auto) Urine Creatinine 12/14/19 12/14/19 12/14/19 06:03 06:03 09:37 WBC RBC Hgb 9.6 L Hct 30.4 L MCHC RDW MCV MCH Lymph % (Auto) [place] % (Auto) [place] # Eos # Lymph # (Auto) [place] # (Auto) Eos # (Auto) Seg Neutrophils % Seg Neuts % (Manual) Baso # (Auto) Lymphocytes % (Manual) Monocytes % (Manual) Eosinophils % (Manual) Basophils % (Manual) Seg Neutrophils # Seg Neutrophils # Man Lymphocytes # (Manual) Monocytes # (Manual) Eosinophils # (Manual) Nucleated RBC % Basophils # (Manual) PT INR APTT Heparin Anti-Xa Level 0.24 L ABG pH POC ABG pO2 ABG pO2 ABG HCO3 ABG O2 Saturation ABG Base Excess POC ABG pCO2 ABG Hemoglobin ABG Oxyhemoglobin ABG Chloride ABG Glucose Oxyhemoglobin Sodium Potassium Chloride Carbon Dioxide BUN Creatinine 0.6 L Glucose 162 H POC Glucose Lactic Acid Calcium Phosphorus Magnesium AST 71 H ALT 118 H Lactate Dehydrogenase Total Bilirubin Direct Bilirubin CK-MB (CK-2) C-Reactive Protein NT-Pro-B Natriuret Pep Total Protein 6.2 L Albumin 2.3 L Arterial Blood Glucose Urine WBC (Auto) Urine Creatinine 12/14/19 12/14/19 12/15/19 12:06 18:18 00:19 WBC RBC Hgb Hct MCHC RDW MCV MCH Lymph % (Auto) [place] % (Auto) [place] # Eos # Lymph # (Auto) [place] # (Auto) Eos # (Auto) Seg Neutrophils % Seg Neuts % (Manual) Baso # (Auto) Lymphocytes % (Manual) Monocytes % (Manual) Eosinophils % (Manual) Basophils % (Manual) Seg Neutrophils # Seg Neutrophils # Man Lymphocytes # (Manual) Monocytes # (Manual) Eosinophils # (Manual) Nucleated RBC % Basophils # (Manual) PT INR APTT Heparin Anti-Xa Level ABG pH POC ABG pO2 ABG pO2 ABG HCO3 ABG O2 Saturation ABG Base Excess POC ABG pCO2 ABG Hemoglobin ABG Oxyhemoglobin ABG Chloride ABG Glucose Oxyhemoglobin Sodium Potassium Chloride Carbon Dioxide BUN Creatinine Glucose POC Glucose 147 H 166 H 123 H Lactic Acid Calcium Phosphorus Magnesium AST ALT Lactate Dehydrogenase Total Bilirubin Direct Bilirubin CK-MB (CK-2) C-Reactive Protein NT-Pro-B Natriuret Pep Total Protein Albumin Arterial Blood Glucose Urine WBC (Auto) Urine Creatinine 12/15/19 12/15/19 12/15/19 05:28 05:29 05:29 WBC 14.9 H RBC 3.19 L Hgb 9.1 L Hct 28.7 L MCHC RDW 16.0 H MCV MCH Lymph % (Auto) [place] % (Auto) [place] # Eos # Lymph # (Auto) [place] # (Auto) Eos # (Auto) Seg Neutrophils % Seg Neuts % (Manual) Baso # (Auto) Lymphocytes % (Manual) Monocytes % (Manual) Eosinophils % (Manual) Basophils % (Manual) Seg Neutrophils # Seg Neutrophils # Man Lymphocytes # (Manual) Monocytes # (Manual) Eosinophils # (Manual) Nucleated RBC % Basophils # (Manual) PT INR APTT Heparin Anti-Xa Level 0.19 L ABG pH POC ABG pO2 ABG pO2 ABG HCO3 ABG O2 Saturation ABG Base Excess POC ABG pCO2 ABG Hemoglobin ABG Oxyhemoglobin ABG Chloride ABG Glucose Oxyhemoglobin Sodium Potassium Chloride Carbon Dioxide BUN Creatinine 0.6 L Glucose 110 H POC Glucose Lactic Acid Calcium Phosphorus Magnesium AST ALT Lactate Dehydrogenase Total Bilirubin Direct Bilirubin CK-MB (CK-2) C-Reactive Protein NT-Pro-B Natriuret Pep Total Protein Albumin Arterial Blood Glucose Urine WBC (Auto) Urine Creatinine 12/15/19 12/15/19 12/15/19 05:53 11:50 17:26 WBC RBC Hgb Hct MCHC RDW MCV MCH Lymph % (Auto) [place] % (Auto) [place] # Eos # Lymph # (Auto) [place] # (Auto) Eos # (Auto) Seg Neutrophils % Seg Neuts % (Manual) Baso # (Auto) Lymphocytes % (Manual) Monocytes % (Manual) Eosinophils % (Manual) Basophils % (Manual) Seg Neutrophils # Seg Neutrophils # Man Lymphocytes # (Manual) Monocytes # (Manual) Eosinophils # (Manual) Nucleated RBC % Basophils # (Manual) PT INR APTT Heparin Anti-Xa Level ABG pH POC ABG pO2 ABG pO2 ABG HCO3 ABG O2 Saturation ABG Base Excess POC ABG pCO2 ABG Hemoglobin ABG Oxyhemoglobin ABG Chloride ABG Glucose Oxyhemoglobin Sodium Potassium Chloride Carbon Dioxide BUN Creatinine Glucose POC Glucose 119 H 132 H 128 H Lactic Acid Calcium Phosphorus Magnesium AST ALT Lactate Dehydrogenase Total Bilirubin Direct Bilirubin CK-MB (CK-2) C-Reactive Protein NT-Pro-B Natriuret Pep Total Protein Albumin Arterial Blood Glucose Urine WBC (Auto) Urine Creatinine 12/15/19 12/16/19 12/16/19 23:11 05:30 05:46 WBC RBC Hgb 8.8 L Hct 27.9 L MCHC RDW MCV MCH Lymph % (Auto) [place] % (Auto) [place] # Eos # Lymph # (Auto) [place] # (Auto) Eos # (Auto) Seg Neutrophils % Seg Neuts % (Manual) Baso # (Auto) Lymphocytes % (Manual) Monocytes % (Manual) Eosinophils % (Manual) Basophils % (Manual) Seg Neutrophils # Seg Neutrophils # Man Lymphocytes # (Manual) Monocytes # (Manual) Eosinophils # (Manual) Nucleated RBC % Basophils # (Manual) PT INR APTT Heparin Anti-Xa Level ABG pH POC ABG pO2 ABG pO2 ABG HCO3 ABG O2 Saturation ABG Base Excess POC ABG pCO2 ABG Hemoglobin ABG Oxyhemoglobin ABG Chloride ABG Glucose Oxyhemoglobin Sodium Potassium Chloride Carbon Dioxide BUN Creatinine Glucose POC Glucose 150 H 134 H Lactic Acid Calcium Phosphorus Magnesium AST ALT Lactate Dehydrogenase Total Bilirubin Direct Bilirubin CK-MB (CK-2) C-Reactive Protein NT-Pro-B Natriuret Pep Total Protein Albumin Arterial Blood Glucose Urine WBC (Auto) Urine Creatinine 12/16/19 12/16/19 12/16/19 05:46 05:46 11:44 WBC RBC Hgb Hct MCHC RDW MCV MCH Lymph % (Auto) [place] % (Auto) [place] # Eos # Lymph # (Auto) [place] # (Auto) Eos # (Auto) Seg Neutrophils % Seg Neuts % (Manual) Baso # (Auto) Lymphocytes % (Manual) Monocytes % (Manual) Eosinophils % (Manual) Basophils % (Manual) Seg Neutrophils # Seg Neutrophils # Man Lymphocytes # (Manual) Monocytes # (Manual) Eosinophils # (Manual) Nucleated RBC % Basophils # (Manual) PT INR APTT Heparin Anti-Xa Level 0.20 L ABG pH POC ABG pO2 ABG pO2 ABG HCO3 ABG O2 Saturation ABG Base Excess POC ABG pCO2 ABG Hemoglobin ABG Oxyhemoglobin ABG Chloride ABG Glucose Oxyhemoglobin Sodium Potassium Chloride Carbon Dioxide 31 H BUN Creatinine 0.5 L Glucose 147 H POC Glucose 164 H Lactic Acid Calcium Phosphorus Magnesium AST ALT Lactate Dehydrogenase Total Bilirubin Direct Bilirubin CK-MB (CK-2) C-Reactive Protein NT-Pro-B Natriuret Pep Total Protein Albumin Arterial Blood Glucose Urine WBC (Auto) Urine Creatinine 12/16/19 12/16/19 12/17/19 17:17 23:49 05:30 WBC 13.9 H RBC 3.27 L Hgb 9.4 L Hct 29.2 L MCHC RDW 16.0 H MCV MCH Lymph % (Auto) [place] % (Auto) 8.8 H [place] # Eos # Lymph # (Auto) [place] # (Auto) 1.2 H Eos # (Auto) 0.5 H Seg Neutrophils % 70.5 H Seg Neuts % (Manual) Baso # (Auto) 0.2 H Lymphocytes % (Manual) Monocytes % (Manual) Eosinophils % (Manual) Basophils % (Manual) Seg Neutrophils # 9.8 H Seg Neutrophils # Man Lymphocytes # (Manual) Monocytes # (Manual) Eosinophils # (Manual) Nucleated RBC % Basophils # (Manual) PT INR APTT Heparin Anti-Xa Level ABG pH POC ABG pO2 ABG pO2 ABG HCO3 ABG O2 Saturation ABG Base Excess POC ABG pCO2 ABG Hemoglobin ABG Oxyhemoglobin ABG Chloride ABG Glucose Oxyhemoglobin Sodium Potassium Chloride Carbon Dioxide BUN Creatinine Glucose POC Glucose 162 H 144 H Lactic Acid Calcium Phosphorus Magnesium AST ALT Lactate Dehydrogenase Total Bilirubin Direct Bilirubin CK-MB (CK-2) C-Reactive Protein NT-Pro-B Natriuret Pep Total Protein Albumin Arterial Blood Glucose Urine WBC (Auto) Urine Creatinine 12/17/19 12/17/19 12/17/19 05:30 06:06 11:50 WBC RBC Hgb Hct MCHC RDW MCV MCH Lymph % (Auto) [place] % (Auto) [place] # Eos # Lymph # (Auto) [place] # (Auto) Eos # (Auto) Seg Neutrophils % Seg Neuts % (Manual) Baso # (Auto) Lymphocytes % (Manual) Monocytes % (Manual) Eosinophils % (Manual) Basophils % (Manual) Seg Neutrophils # Seg Neutrophils # Man Lymphocytes # (Manual) Monocytes # (Manual) Eosinophils # (Manual) Nucleated RBC % Basophils # (Manual) PT INR APTT Heparin Anti-Xa Level ABG pH POC ABG pO2 ABG pO2 ABG HCO3 ABG O2 Saturation ABG Base Excess POC ABG pCO2 ABG Hemoglobin ABG Oxyhemoglobin ABG Chloride ABG Glucose Oxyhemoglobin Sodium Potassium Chloride 97.4 L Carbon Dioxide 32 H BUN Creatinine 0.5 L Glucose 135 H POC Glucose 151 H 140 H Lactic Acid Calcium Phosphorus Magnesium AST ALT Lactate Dehydrogenase Total Bilirubin Direct Bilirubin CK-MB (CK-2) C-Reactive Protein NT-Pro-B Natriuret Pep Total Protein Albumin Arterial Blood Glucose Urine WBC (Auto) Urine Creatinine 12/17/19 12/17/19 12/18/19 17:50 23:46 05:17 WBC RBC Hgb 8.8 L Hct 28.0 L MCHC RDW MCV MCH Lymph % (Auto) [place] % (Auto) [place] # Eos # Lymph # (Auto) [place] # (Auto) Eos # (Auto) Seg Neutrophils % Seg Neuts % (Manual) Baso # (Auto) Lymphocytes % (Manual) Monocytes % (Manual) Eosinophils % (Manual) Basophils % (Manual) Seg Neutrophils # Seg Neutrophils # Man Lymphocytes # (Manual) Monocytes # (Manual) Eosinophils # (Manual) Nucleated RBC % Basophils # (Manual) PT INR APTT Heparin Anti-Xa Level ABG pH POC ABG pO2 ABG pO2 ABG HCO3 ABG O2 Saturation ABG Base Excess POC ABG pCO2 ABG Hemoglobin ABG Oxyhemoglobin ABG Chloride ABG Glucose Oxyhemoglobin Sodium Potassium Chloride Carbon Dioxide BUN Creatinine Glucose POC Glucose 158 H 150 H Lactic Acid Calcium Phosphorus Magnesium AST ALT Lactate Dehydrogenase Total Bilirubin Direct Bilirubin CK-MB (CK-2) C-Reactive Protein NT-Pro-B Natriuret Pep Total Protein Albumin Arterial Blood Glucose Urine WBC (Auto) Urine Creatinine 12/18/19 12/18/19 12/18/19 05:17 05:49 11:12 WBC RBC Hgb Hct MCHC RDW MCV MCH Lymph % (Auto) [place] % (Auto) [place] # Eos # Lymph # (Auto) [place] # (Auto) Eos # (Auto) Seg Neutrophils % Seg Neuts % (Manual) Baso # (Auto) Lymphocytes % (Manual) Monocytes % (Manual) Eosinophils % (Manual) Basophils % (Manual) Seg Neutrophils # Seg Neutrophils # Man Lymphocytes # (Manual) Monocytes # (Manual) Eosinophils # (Manual) Nucleated RBC % Basophils # (Manual) PT INR APTT Heparin Anti-Xa Level 0.16 L ABG pH POC ABG pO2 ABG pO2 ABG HCO3 ABG O2 Saturation ABG Base Excess POC ABG pCO2 ABG Hemoglobin ABG Oxyhemoglobin ABG Chloride ABG Glucose Oxyhemoglobin Sodium Potassium Chloride Carbon Dioxide BUN Creatinine Glucose POC Glucose 127 H 191 H Lactic Acid Calcium Phosphorus Magnesium AST ALT Lactate Dehydrogenase Total Bilirubin Direct Bilirubin CK-MB (CK-2) C-Reactive Protein NT-Pro-B Natriuret Pep Total Protein Albumin Arterial Blood Glucose Urine WBC (Auto) Urine Creatinine 12/18/19 12/18/19 12/19/19 17:03 20:16 00:08 WBC RBC Hgb Hct MCHC RDW MCV MCH Lymph % (Auto) [place] % (Auto) [place] # Eos # Lymph # (Auto) [place] # (Auto) Eos # (Auto) Seg Neutrophils % Seg Neuts % (Manual) Baso # (Auto) Lymphocytes % (Manual) Monocytes % (Manual) Eosinophils % (Manual) Basophils % (Manual) Seg Neutrophils # Seg Neutrophils # Man Lymphocytes # (Manual) Monocytes # (Manual) Eosinophils # (Manual) Nucleated RBC % Basophils # (Manual) PT INR APTT Heparin Anti-Xa Level ABG pH POC ABG pO2 ABG pO2 ABG HCO3 ABG O2 Saturation ABG Base Excess POC ABG pCO2 ABG Hemoglobin ABG Oxyhemoglobin ABG Chloride ABG Glucose Oxyhemoglobin Sodium Potassium Chloride Carbon Dioxide BUN Creatinine Glucose POC Glucose 133 H 128 H 129 H Lactic Acid Calcium Phosphorus Magnesium AST ALT Lactate Dehydrogenase Total Bilirubin Direct Bilirubin CK-MB (CK-2) C-Reactive Protein NT-Pro-B Natriuret Pep Total Protein Albumin Arterial Blood Glucose Urine WBC (Auto) Urine Creatinine 12/19/19 12/19/19 12/19/19 04:45 04:45 05:35 WBC RBC Hgb Hct MCHC RDW MCV MCH Lymph % (Auto) [place] % (Auto) [place] # Eos # Lymph # (Auto) [place] # (Auto) Eos # (Auto) Seg Neutrophils % Seg Neuts % (Manual) Baso # (Auto) Lymphocytes % (Manual) Monocytes % (Manual) Eosinophils % (Manual) Basophils % (Manual) Seg Neutrophils # Seg Neutrophils # Man Lymphocytes # (Manual) Monocytes # (Manual) Eosinophils # (Manual) Nucleated RBC % Basophils # (Manual) PT INR APTT Heparin Anti-Xa Level 0.17 L ABG pH POC ABG pO2 ABG pO2 ABG HCO3 ABG O2 Saturation ABG Base Excess POC ABG pCO2 ABG Hemoglobin ABG Oxyhemoglobin ABG Chloride ABG Glucose Oxyhemoglobin Sodium Potassium Chloride Carbon Dioxide BUN Creatinine Glucose POC Glucose 120 H Lactic Acid Calcium Phosphorus Magnesium AST ALT Lactate Dehydrogenase 228 H Total Bilirubin Direct Bilirubin CK-MB (CK-2) C-Reactive Protein NT-Pro-B Natriuret Pep Total Protein Albumin Arterial Blood Glucose Urine WBC (Auto) Urine Creatinine 12/19/19 12/19/19 12/19/19 09:20 11:32 11:32 WBC 14.6 H RBC 3.08 L Hgb 9.0 L Hct 26.8 L MCHC RDW 15.9 H MCV MCH Lymph % (Auto) [place] % (Auto) [place] # Eos # Lymph # (Auto) [place] # (Auto) Eos # (Auto) Seg Neutrophils % Seg Neuts % (Manual) 82.0 H Baso # (Auto) Lymphocytes % (Manual) 10.0 L Monocytes % (Manual) Eosinophils % (Manual) Basophils % (Manual) Seg Neutrophils # Seg Neutrophils # Man 12.0 H Lymphocytes # (Manual) Monocytes # (Manual) 0.9 H Eosinophils # (Manual) Nucleated RBC % 1.0 H Basophils # (Manual) PT INR APTT Heparin Anti-Xa Level ABG pH 7.451 H POC ABG pO2 ABG pO2 62.6 L ABG HCO3 33.2 H ABG O2 Saturation 93.8 L ABG Base Excess 8.3 H POC ABG pCO2 ABG Hemoglobin 8.3 L ABG Oxyhemoglobin ABG Chloride ABG Glucose Oxyhemoglobin 91.9 L Sodium Potassium Chloride 95.0 L Carbon Dioxide 33 H BUN 22 H Creatinine 0.6 L Glucose 150 H POC Glucose Lactic Acid Calcium Phosphorus Magnesium AST ALT Lactate Dehydrogenase Total Bilirubin Direct Bilirubin CK-MB (CK-2) C-Reactive Protein NT-Pro-B Natriuret Pep Total Protein 6.2 L Albumin 2.4 L Arterial Blood Glucose Urine WBC (Auto) Urine Creatinine 12/19/19 12/19/19 12/20/19 11:56 18:17 00:09 WBC RBC Hgb Hct MCHC RDW MCV MCH Lymph % (Auto) [place] % (Auto) [place] # Eos # Lymph # (Auto) [place] # (Auto) Eos # (Auto) Seg Neutrophils % Seg Neuts % (Manual) Baso # (Auto) Lymphocytes % (Manual) Monocytes % (Manual) Eosinophils % (Manual) Basophils % (Manual) Seg Neutrophils # Seg Neutrophils # Man Lymphocytes # (Manual) Monocytes # (Manual) Eosinophils # (Manual) Nucleated RBC % Basophils # (Manual) PT INR APTT Heparin Anti-Xa Level ABG pH POC ABG pO2 ABG pO2 ABG HCO3 ABG O2 Saturation ABG Base Excess POC ABG pCO2 ABG Hemoglobin ABG Oxyhemoglobin ABG Chloride ABG Glucose Oxyhemoglobin Sodium Potassium Chloride Carbon Dioxide BUN Creatinine Glucose POC Glucose 156 H 156 H 155 H Lactic Acid Calcium Phosphorus Magnesium AST ALT Lactate Dehydrogenase Total Bilirubin Direct Bilirubin CK-MB (CK-2) C-Reactive Protein NT-Pro-B Natriuret Pep Total Protein Albumin Arterial Blood Glucose Urine WBC (Auto) Urine Creatinine 12/20/19 12/20/19 12/20/19 05:26 06:02 18:17 WBC RBC Hgb Hct MCHC RDW MCV MCH Lymph % (Auto) [place] % (Auto) [place] # Eos # Lymph # (Auto) [place] # (Auto) Eos # (Auto) Seg Neutrophils % Seg Neuts % (Manual) Baso # (Auto) Lymphocytes % (Manual) Monocytes % (Manual) Eosinophils % (Manual) Basophils % (Manual) Seg Neutrophils # Seg Neutrophils # Man Lymphocytes # (Manual) Monocytes # (Manual) Eosinophils # (Manual) Nucleated RBC % Basophils # (Manual) PT INR APTT Heparin Anti-Xa Level 0.19 L ABG pH POC ABG pO2 ABG pO2 ABG HCO3 ABG O2 Saturation ABG Base Excess POC ABG pCO2 ABG Hemoglobin ABG Oxyhemoglobin ABG Chloride ABG Glucose Oxyhemoglobin Sodium Potassium Chloride Carbon Dioxide BUN Creatinine Glucose POC Glucose 137 H 128 H Lactic Acid Calcium Phosphorus Magnesium AST ALT Lactate Dehydrogenase Total Bilirubin Direct Bilirubin CK-MB (CK-2) C-Reactive Protein NT-Pro-B Natriuret Pep Total Protein Albumin Arterial Blood Glucose Urine WBC (Auto) Urine Creatinine 12/20/19 12/21/19 12/21/19 23:34 05:31 05:31 WBC 12.7 H RBC 3.09 L Hgb 8.9 L Hct 27.4 L MCHC RDW 15.8 H MCV MCH Lymph % (Auto) 12.1 L [place] % (Auto) 7.8 H [place] # Eos # Lymph # (Auto) [place] # (Auto) 1.0 H Eos # (Auto) Seg Neutrophils % 77.1 H Seg Neuts % (Manual) Baso # (Auto) Lymphocytes % (Manual) Monocytes % (Manual) Eosinophils % (Manual) Basophils % (Manual) Seg Neutrophils # 9.8 H Seg Neutrophils # Man Lymphocytes # (Manual) Monocytes # (Manual) Eosinophils # (Manual) Nucleated RBC % Basophils # (Manual) PT INR APTT Heparin Anti-Xa Level ABG pH POC ABG pO2 ABG pO2 ABG HCO3 ABG O2 Saturation ABG Base Excess POC ABG pCO2 ABG Hemoglobin ABG Oxyhemoglobin ABG Chloride ABG Glucose Oxyhemoglobin Sodium Potassium Chloride 96.9 L Carbon Dioxide 37 H BUN 27 H Creatinine 0.7 L Glucose 140 H POC Glucose 145 H Lactic Acid Calcium Phosphorus Magnesium AST ALT Lactate Dehydrogenase Total Bilirubin Direct Bilirubin CK-MB (CK-2) C-Reactive Protein NT-Pro-B Natriuret Pep Total Protein Albumin Arterial Blood Glucose Urine WBC (Auto) Urine Creatinine 12/21/19 12/21/19 12/21/19 05:38 10:13 11:51 WBC RBC Hgb Hct MCHC RDW MCV MCH Lymph % (Auto) [place] % (Auto) [place] # Eos # Lymph # (Auto) [place] # (Auto) Eos # (Auto) Seg Neutrophils % Seg Neuts % (Manual) Baso # (Auto) Lymphocytes % (Manual) Monocytes % (Manual) Eosinophils % (Manual) Basophils % (Manual) Seg Neutrophils # Seg Neutrophils # Man Lymphocytes # (Manual) Monocytes # (Manual) Eosinophils # (Manual) Nucleated RBC % Basophils # (Manual) PT INR APTT 23.9 L Heparin Anti-Xa Level < 0.10 L ABG pH POC ABG pO2 ABG pO2 ABG HCO3 ABG O2 Saturation ABG Base Excess POC ABG pCO2 ABG Hemoglobin ABG Oxyhemoglobin ABG Chloride ABG Glucose Oxyhemoglobin Sodium Potassium Chloride Carbon Dioxide BUN Creatinine Glucose POC Glucose 151 H 145 H Lactic Acid Calcium Phosphorus Magnesium AST ALT Lactate Dehydrogenase Total Bilirubin Direct Bilirubin CK-MB (CK-2) C-Reactive Protein NT-Pro-B Natriuret Pep Total Protein Albumin Arterial Blood Glucose Urine WBC (Auto) Urine Creatinine 12/21/19 12/22/19 12/22/19 17:16 00:01 01:33 WBC RBC Hgb Hct MCHC RDW MCV MCH Lymph % (Auto) [place] % (Auto) [place] # Eos # Lymph # (Auto) [place] # (Auto) Eos # (Auto) Seg Neutrophils % Seg Neuts % (Manual) Baso # (Auto) Lymphocytes % (Manual) Monocytes % (Manual) Eosinophils % (Manual) Basophils % (Manual) Seg Neutrophils # Seg Neutrophils # Man Lymphocytes # (Manual) Monocytes # (Manual) Eosinophils # (Manual) Nucleated RBC % Basophils # (Manual) PT INR APTT Heparin Anti-Xa Level 0.10 L ABG pH POC ABG pO2 ABG pO2 ABG HCO3 ABG O2 Saturation ABG Base Excess POC ABG pCO2 ABG Hemoglobin ABG Oxyhemoglobin ABG Chloride ABG Glucose Oxyhemoglobin Sodium Potassium Chloride Carbon Dioxide BUN Creatinine Glucose POC Glucose 167 H 179 H Lactic Acid Calcium Phosphorus Magnesium AST ALT Lactate Dehydrogenase Total Bilirubin Direct Bilirubin CK-MB (CK-2) C-Reactive Protein NT-Pro-B Natriuret Pep Total Protein Albumin Arterial Blood Glucose Urine WBC (Auto) Urine Creatinine 12/22/19 12/22/19 12/22/19 03:22 05:10 05:10 WBC 13.8 H RBC 3.20 L Hgb 8.9 L Hct 28.1 L MCHC RDW 15.9 H MCV MCH Lymph % (Auto) [place] % (Auto) [place] # Eos # Lymph # (Auto) [place] # (Auto) Eos # (Auto) Seg Neutrophils % Seg Neuts % (Manual) Baso # (Auto) Lymphocytes % (Manual) Monocytes % (Manual) Eosinophils % (Manual) Basophils % (Manual) Seg Neutrophils # Seg Neutrophils # Man Lymphocytes # (Manual) Monocytes # (Manual) Eosinophils # (Manual) Nucleated RBC % Basophils # (Manual) PT INR APTT Heparin Anti-Xa Level ABG pH POC ABG pO2 52.3 L ABG pO2 ABG HCO3 ABG O2 Saturation ABG Base Excess POC ABG pCO2 52.9 H ABG Hemoglobin 10.7 L ABG Oxyhemoglobin 84 L ABG Chloride ABG Glucose Oxyhemoglobin Sodium Potassium Chloride 96.6 L Carbon Dioxide BUN 25 H Creatinine 0.7 L Glucose 129 H POC Glucose Lactic Acid Calcium Phosphorus Magnesium AST ALT Lactate Dehydrogenase Total Bilirubin Direct Bilirubin CK-MB (CK-2) C-Reactive Protein NT-Pro-B Natriuret Pep Total Protein Albumin Arterial Blood Glucose Urine WBC (Auto) Urine Creatinine 12/22/19 12/22/19 12/22/19 05:18 12:32 12:43 WBC RBC Hgb Hct MCHC RDW MCV MCH Lymph % (Auto) [place] % (Auto) [place] # Eos # Lymph # (Auto) [place] # (Auto) Eos # (Auto) Seg Neutrophils % Seg Neuts % (Manual) Baso # (Auto) Lymphocytes % (Manual) Monocytes % (Manual) Eosinophils % (Manual) Basophils % (Manual) Seg Neutrophils # Seg Neutrophils # Man Lymphocytes # (Manual) Monocytes # (Manual) Eosinophils # (Manual) Nucleated RBC % Basophils # (Manual) PT INR APTT Heparin Anti-Xa Level 0.18 L ABG pH POC ABG pO2 ABG pO2 ABG HCO3 ABG O2 Saturation ABG Base Excess POC ABG pCO2 ABG Hemoglobin ABG Oxyhemoglobin ABG Chloride ABG Glucose Oxyhemoglobin Sodium Potassium Chloride Carbon Dioxide BUN Creatinine Glucose POC Glucose 131 H 208 H Lactic Acid Calcium Phosphorus Magnesium AST ALT Lactate Dehydrogenase Total Bilirubin Direct Bilirubin CK-MB (CK-2) C-Reactive Protein NT-Pro-B Natriuret Pep Total Protein Albumin Arterial Blood Glucose Urine WBC (Auto) Urine Creatinine 12/22/19 12/22/19 12/23/19 17:44 23:20 03:51 WBC 15.2 H RBC 3.43 L Hgb 9.6 L Hct 30.3 L MCHC RDW 15.9 H MCV MCH Lymph % (Auto) [place] % (Auto) [place] # Eos # Lymph # (Auto) [place] # (Auto) Eos # (Auto) Seg Neutrophils % Seg Neuts % (Manual) Baso # (Auto) Lymphocytes % (Manual) Monocytes % (Manual) Eosinophils % (Manual) Basophils % (Manual) Seg Neutrophils # Seg Neutrophils # Man Lymphocytes # (Manual) Monocytes # (Manual) Eosinophils # (Manual) Nucleated RBC % Basophils # (Manual) PT INR APTT Heparin Anti-Xa Level ABG pH POC ABG pO2 ABG pO2 ABG HCO3 ABG O2 Saturation ABG Base Excess POC ABG pCO2 ABG Hemoglobin ABG Oxyhemoglobin ABG Chloride ABG Glucose Oxyhemoglobin Sodium Potassium Chloride Carbon Dioxide BUN Creatinine Glucose POC Glucose 209 H 119 H Lactic Acid Calcium Phosphorus Magnesium AST ALT Lactate Dehydrogenase Total Bilirubin Direct Bilirubin CK-MB (CK-2) C-Reactive Protein NT-Pro-B Natriuret Pep Total Protein Albumin Arterial Blood Glucose Urine WBC (Auto) Urine Creatinine 12/23/19 12/23/19 12/23/19 03:51 05:31 12:09 WBC RBC Hgb Hct MCHC RDW MCV MCH Lymph % (Auto) [place] % (Auto) [place] # Eos # Lymph # (Auto) [place] # (Auto) Eos # (Auto) Seg Neutrophils % Seg Neuts % (Manual) Baso # (Auto) Lymphocytes % (Manual) Monocytes % (Manual) Eosinophils % (Manual) Basophils % (Manual) Seg Neutrophils # Seg Neutrophils # Man Lymphocytes # (Manual) Monocytes # (Manual) Eosinophils # (Manual) Nucleated RBC % Basophils # (Manual) PT INR APTT Heparin Anti-Xa Level ABG pH POC ABG pO2 ABG pO2 ABG HCO3 ABG O2 Saturation ABG Base Excess POC ABG pCO2 ABG Hemoglobin ABG Oxyhemoglobin ABG Chloride ABG Glucose Oxyhemoglobin Sodium Potassium Chloride 97.2 L Carbon Dioxide 31 H BUN 23 H Creatinine 0.6 L Glucose 153 H POC Glucose 149 H 144 H Lactic Acid Calcium Phosphorus Magnesium AST ALT Lactate Dehydrogenase Total Bilirubin Direct Bilirubin CK-MB (CK-2) C-Reactive Protein NT-Pro-B Natriuret Pep Total Protein Albumin Arterial Blood Glucose Urine WBC (Auto) Urine Creatinine 12/23/19 12/23/19 12/23/19 15:30 17:49 23:31 WBC RBC Hgb Hct MCHC RDW MCV MCH Lymph % (Auto) [place] % (Auto) [place] # Eos # Lymph # (Auto) [place] # (Auto) Eos # (Auto) Seg Neutrophils % Seg Neuts % (Manual) Baso # (Auto) Lymphocytes % (Manual) Monocytes % (Manual) Eosinophils % (Manual) Basophils % (Manual) Seg Neutrophils # Seg Neutrophils # Man Lymphocytes # (Manual) Monocytes # (Manual) Eosinophils # (Manual) Nucleated RBC % Basophils # (Manual) PT INR APTT Heparin Anti-Xa Level 0.21 L ABG pH POC ABG pO2 ABG pO2 ABG HCO3 ABG O2 Saturation ABG Base Excess POC ABG pCO2 ABG Hemoglobin ABG Oxyhemoglobin ABG Chloride ABG Glucose Oxyhemoglobin Sodium Potassium Chloride Carbon Dioxide BUN Creatinine Glucose POC Glucose 192 H 151 H Lactic Acid Calcium Phosphorus Magnesium AST ALT Lactate Dehydrogenase Total Bilirubin Direct Bilirubin CK-MB (CK-2) C-Reactive Protein NT-Pro-B Natriuret Pep Total Protein Albumin Arterial Blood Glucose Urine WBC (Auto) Urine Creatinine 12/24/19 12/24/19 12/24/19 05:34 12:13 16:50 WBC RBC Hgb Hct MCHC RDW MCV MCH Lymph % (Auto) [place] % (Auto) [place] # Eos # Lymph # (Auto) [place] # (Auto) Eos # (Auto) Seg Neutrophils % Seg Neuts % (Manual) Baso # (Auto) Lymphocytes % (Manual) Monocytes % (Manual) Eosinophils % (Manual) Basophils % (Manual) Seg Neutrophils # Seg Neutrophils # Man Lymphocytes # (Manual) Monocytes # (Manual) Eosinophils # (Manual) Nucleated RBC % Basophils # (Manual) PT INR APTT Heparin Anti-Xa Level 0.16 L ABG pH POC ABG pO2 ABG pO2 ABG HCO3 ABG O2 Saturation ABG Base Excess POC ABG pCO2 ABG Hemoglobin ABG Oxyhemoglobin ABG Chloride ABG Glucose Oxyhemoglobin Sodium Potassium Chloride Carbon Dioxide BUN Creatinine Glucose POC Glucose 145 H 124 H Lactic Acid Calcium Phosphorus Magnesium AST ALT Lactate Dehydrogenase Total Bilirubin Direct Bilirubin CK-MB (CK-2) C-Reactive Protein NT-Pro-B Natriuret Pep Total Protein Albumin Arterial Blood Glucose Urine WBC (Auto) Urine Creatinine 12/24/19 12/25/19 12/25/19 17:53 00:14 04:18 WBC 12.9 H RBC 3.30 L Hgb 9.1 L Hct 28.8 L MCHC RDW 16.4 H MCV MCH Lymph % (Auto) [place] % (Auto) 7.8 H [place] # Eos # Lymph # (Auto) [place] # (Auto) 1.0 H Eos # (Auto) Seg Neutrophils % 75.5 H Seg Neuts % (Manual) Baso # (Auto) Lymphocytes % (Manual) Monocytes % (Manual) Eosinophils % (Manual) Basophils % (Manual) Seg Neutrophils # 9.7 H Seg Neutrophils # Man Lymphocytes # (Manual) Monocytes # (Manual) Eosinophils # (Manual) Nucleated RBC % Basophils # (Manual) PT INR APTT Heparin Anti-Xa Level ABG pH POC ABG pO2 ABG pO2 ABG HCO3 ABG O2 Saturation ABG Base Excess POC ABG pCO2 ABG Hemoglobin ABG Oxyhemoglobin ABG Chloride ABG Glucose Oxyhemoglobin Sodium Potassium Chloride Carbon Dioxide BUN Creatinine Glucose POC Glucose 164 H 148 H Lactic Acid Calcium Phosphorus Magnesium AST ALT Lactate Dehydrogenase Total Bilirubin Direct Bilirubin CK-MB (CK-2) C-Reactive Protein NT-Pro-B Natriuret Pep Total Protein Albumin Arterial Blood Glucose Urine WBC (Auto) Urine Creatinine 12/25/19 12/25/19 12/25/19 04:18 05:38 11:44 WBC RBC Hgb Hct MCHC RDW MCV MCH Lymph % (Auto) [place] % (Auto) [place] # Eos # Lymph # (Auto) [place] # (Auto) Eos # (Auto) Seg Neutrophils % Seg Neuts % (Manual) Baso # (Auto) Lymphocytes % (Manual) Monocytes % (Manual) Eosinophils % (Manual) Basophils % (Manual) Seg Neutrophils # Seg Neutrophils # Man Lymphocytes # (Manual) Monocytes # (Manual) Eosinophils # (Manual) Nucleated RBC % Basophils # (Manual) PT INR APTT Heparin Anti-Xa Level ABG pH POC ABG pO2 ABG pO2 ABG HCO3 ABG O2 Saturation ABG Base Excess POC ABG pCO2 ABG Hemoglobin ABG Oxyhemoglobin ABG Chloride ABG Glucose Oxyhemoglobin Sodium Potassium Chloride Carbon Dioxide 33 H BUN 27 H Creatinine 0.6 L Glucose 132 H POC Glucose 152 H 166 H Lactic Acid Calcium Phosphorus Magnesium AST ALT Lactate Dehydrogenase Total Bilirubin Direct Bilirubin CK-MB (CK-2) C-Reactive Protein NT-Pro-B Natriuret Pep Total Protein Albumin Arterial Blood Glucose Urine WBC (Auto) Urine Creatinine 12/25/19 12/26/19 12/26/19 18:29 00:17 00:18 WBC RBC Hgb Hct MCHC RDW MCV MCH Lymph % (Auto) [place] % (Auto) [place] # Eos # Lymph # (Auto) [place] # (Auto) Eos # (Auto) Seg Neutrophils % Seg Neuts % (Manual) Baso # (Auto) Lymphocytes % (Manual) Monocytes % (Manual) Eosinophils % (Manual) Basophils % (Manual) Seg Neutrophils # Seg Neutrophils # Man Lymphocytes # (Manual) Monocytes # (Manual) Eosinophils # (Manual) Nucleated RBC % Basophils # (Manual) PT INR APTT Heparin Anti-Xa Level ABG pH POC ABG pO2 ABG pO2 ABG HCO3 ABG O2 Saturation ABG Base Excess POC ABG pCO2 ABG Hemoglobin ABG Oxyhemoglobin ABG Chloride ABG Glucose Oxyhemoglobin Sodium Potassium Chloride 97.8 L Carbon Dioxide BUN 25 H Creatinine 0.6 L Glucose 140 H POC Glucose 194 H 151 H Lactic Acid Calcium Phosphorus Magnesium AST ALT Lactate Dehydrogenase Total Bilirubin Direct Bilirubin CK-MB (CK-2) C-Reactive Protein NT-Pro-B Natriuret Pep Total Protein Albumin Arterial Blood Glucose Urine WBC (Auto) Urine Creatinine 12/26/19 12/26/19 12/26/19 05:36 11:41 17:50 WBC RBC Hgb Hct MCHC RDW MCV MCH Lymph % (Auto) [place] % (Auto) [place] # Eos # Lymph # (Auto) [place] # (Auto) Eos # (Auto) Seg Neutrophils % Seg Neuts % (Manual) Baso # (Auto) Lymphocytes % (Manual) Monocytes % (Manual) Eosinophils % (Manual) Basophils % (Manual) Seg Neutrophils # Seg Neutrophils # Man Lymphocytes # (Manual) Monocytes # (Manual) Eosinophils # (Manual) Nucleated RBC % Basophils # (Manual) PT INR APTT Heparin Anti-Xa Level ABG pH POC ABG pO2 ABG pO2 ABG HCO3 ABG O2 Saturation ABG Base Excess POC ABG pCO2 ABG Hemoglobin ABG Oxyhemoglobin ABG Chloride ABG Glucose Oxyhemoglobin Sodium Potassium Chloride Carbon Dioxide BUN Creatinine Glucose POC Glucose 156 H 148 H 139 H Lactic Acid Calcium Phosphorus Magnesium AST ALT Lactate Dehydrogenase Total Bilirubin Direct Bilirubin CK-MB (CK-2) C-Reactive Protein NT-Pro-B Natriuret Pep Total Protein Albumin Arterial Blood Glucose Urine WBC (Auto) Urine Creatinine 12/26/19 12/27/19 12/27/19 23:19 05:34 12:02 WBC RBC Hgb Hct MCHC RDW MCV MCH Lymph % (Auto) [place] % (Auto) [place] # Eos # Lymph # (Auto) [place] # (Auto) Eos # (Auto) Seg Neutrophils % Seg Neuts % (Manual) Baso # (Auto) Lymphocytes % (Manual) Monocytes % (Manual) Eosinophils % (Manual) Basophils % (Manual) Seg Neutrophils # Seg Neutrophils # Man Lymphocytes # (Manual) Monocytes # (Manual) Eosinophils # (Manual) Nucleated RBC % Basophils # (Manual) PT INR APTT Heparin Anti-Xa Level ABG pH POC ABG pO2 ABG pO2 ABG HCO3 ABG O2 Saturation ABG Base Excess POC ABG pCO2 ABG Hemoglobin ABG Oxyhemoglobin ABG Chloride ABG Glucose Oxyhemoglobin Sodium Potassium Chloride Carbon Dioxide BUN Creatinine Glucose POC Glucose 161 H 145 H 157 H Lactic Acid Calcium Phosphorus Magnesium AST ALT Lactate Dehydrogenase Total Bilirubin Direct Bilirubin CK-MB (CK-2) C-Reactive Protein NT-Pro-B Natriuret Pep Total Protein Albumin Arterial Blood Glucose Urine WBC (Auto) Urine Creatinine 12/27/19 12/27/19 12/27/19 17:35 20:11 23:00 WBC RBC Hgb Hct MCHC RDW MCV MCH Lymph % (Auto) [place] % (Auto) [place] # Eos # Lymph # (Auto) [place] # (Auto) Eos # (Auto) Seg Neutrophils % Seg Neuts % (Manual) Baso # (Auto) Lymphocytes % (Manual) Monocytes % (Manual) Eosinophils % (Manual) Basophils % (Manual) Seg Neutrophils # Seg Neutrophils # Man Lymphocytes # (Manual) Monocytes # (Manual) Eosinophils # (Manual) Nucleated RBC % Basophils # (Manual) PT INR APTT Heparin Anti-Xa Level 0.19 L ABG pH POC ABG pO2 ABG pO2 ABG HCO3 ABG O2 Saturation ABG Base Excess POC ABG pCO2 ABG Hemoglobin ABG Oxyhemoglobin ABG Chloride ABG Glucose Oxyhemoglobin Sodium Potassium Chloride Carbon Dioxide BUN Creatinine Glucose POC Glucose 158 H 155 H Lactic Acid Calcium Phosphorus Magnesium AST ALT Lactate Dehydrogenase Total Bilirubin Direct Bilirubin CK-MB (CK-2) C-Reactive Protein NT-Pro-B Natriuret Pep Total Protein Albumin Arterial Blood Glucose Urine WBC (Auto) Urine Creatinine 12/27/19 12/28/19 12/28/19 23:45 02:41 02:41 WBC 13.0 H RBC 3.48 L Hgb 9.5 L Hct 30.6 L MCHC 31 L RDW 16.6 H MCV MCH 27 L Lymph % (Auto) 13.0 L [place] % (Auto) 8.0 H [place] # Eos # Lymph # (Auto) [place] # (Auto) 1.0 H Eos # (Auto) Seg Neutrophils % 76.3 H Seg Neuts % (Manual) Baso # (Auto) Lymphocytes % (Manual) Monocytes % (Manual) Eosinophils % (Manual) Basophils % (Manual) Seg Neutrophils # 9.9 H Seg Neutrophils # Man Lymphocytes # (Manual) Monocytes # (Manual) Eosinophils # (Manual) Nucleated RBC % Basophils # (Manual) PT INR APTT Heparin Anti-Xa Level ABG pH POC ABG pO2 ABG pO2 ABG HCO3 ABG O2 Saturation ABG Base Excess POC ABG pCO2 ABG Hemoglobin ABG Oxyhemoglobin ABG Chloride ABG Glucose Oxyhemoglobin Sodium Potassium Chloride Carbon Dioxide BUN 22 H Creatinine 0.6 L Glucose 101 H POC Glucose 130 H Lactic Acid Calcium Phosphorus Magnesium AST ALT Lactate Dehydrogenase Total Bilirubin Direct Bilirubin CK-MB (CK-2) C-Reactive Protein NT-Pro-B Natriuret Pep Total Protein Albumin Arterial Blood Glucose Urine WBC (Auto) Urine Creatinine 12/28/19 12/28/19 12/28/19 06:00 12:34 18:13 WBC RBC Hgb Hct MCHC RDW MCV MCH Lymph % (Auto) [place] % (Auto) [place] # Eos # Lymph # (Auto) [place] # (Auto) Eos # (Auto) Seg Neutrophils % Seg Neuts % (Manual) Baso # (Auto) Lymphocytes % (Manual) Monocytes % (Manual) Eosinophils % (Manual) Basophils % (Manual) Seg Neutrophils # Seg Neutrophils # Man Lymphocytes # (Manual) Monocytes # (Manual) Eosinophils # (Manual) Nucleated RBC % Basophils # (Manual) PT INR APTT Heparin Anti-Xa Level ABG pH POC ABG pO2 ABG pO2 ABG HCO3 ABG O2 Saturation ABG Base Excess POC ABG pCO2 ABG Hemoglobin ABG Oxyhemoglobin ABG Chloride ABG Glucose Oxyhemoglobin Sodium Potassium Chloride Carbon Dioxide BUN Creatinine Glucose POC Glucose 150 H 161 H 128 H Lactic Acid Calcium Phosphorus Magnesium AST ALT Lactate Dehydrogenase Total Bilirubin Direct Bilirubin CK-MB (CK-2) C-Reactive Protein NT-Pro-B Natriuret Pep Total Protein Albumin Arterial Blood Glucose Urine WBC (Auto) Urine Creatinine 12/28/19 12/29/19 12/29/19 23:36 05:21 11:40 WBC RBC Hgb Hct MCHC RDW MCV MCH Lymph % (Auto) [place] % (Auto) [place] # Eos # Lymph # (Auto) [place] # (Auto) Eos # (Auto) Seg Neutrophils % Seg Neuts % (Manual) Baso # (Auto) Lymphocytes % (Manual) Monocytes % (Manual) Eosinophils % (Manual) Basophils % (Manual) Seg Neutrophils # Seg Neutrophils # Man Lymphocytes # (Manual) Monocytes # (Manual) Eosinophils # (Manual) Nucleated RBC % Basophils # (Manual) PT INR APTT Heparin Anti-Xa Level ABG pH POC ABG pO2 ABG pO2 ABG HCO3 ABG O2 Saturation ABG Base Excess POC ABG pCO2 ABG Hemoglobin ABG Oxyhemoglobin ABG Chloride ABG Glucose Oxyhemoglobin Sodium Potassium Chloride Carbon Dioxide BUN Creatinine Glucose POC Glucose 137 H 136 H 166 H Lactic Acid Calcium Phosphorus Magnesium AST ALT Lactate Dehydrogenase Total Bilirubin Direct Bilirubin CK-MB (CK-2) C-Reactive Protein NT-Pro-B Natriuret Pep Total Protein Albumin Arterial Blood Glucose Urine WBC (Auto) Urine Creatinine 12/29/19 12/29/19 12/29/19 17:23 19:21 23:38 WBC RBC Hgb Hct MCHC RDW MCV MCH Lymph % (Auto) [place] % (Auto) [place] # Eos # Lymph # (Auto) [place] # (Auto) Eos # (Auto) Seg Neutrophils % Seg Neuts % (Manual) Baso # (Auto) Lymphocytes % (Manual) Monocytes % (Manual) Eosinophils % (Manual) Basophils % (Manual) Seg Neutrophils # Seg Neutrophils # Man Lymphocytes # (Manual) Monocytes # (Manual) Eosinophils # (Manual) Nucleated RBC % Basophils # (Manual) PT INR APTT Heparin Anti-Xa Level 0.20 L ABG pH POC ABG pO2 ABG pO2 ABG HCO3 ABG O2 Saturation ABG Base Excess POC ABG pCO2 ABG Hemoglobin ABG Oxyhemoglobin ABG Chloride ABG Glucose Oxyhemoglobin Sodium Potassium Chloride Carbon Dioxide BUN Creatinine Glucose POC Glucose 144 H 141 H Lactic Acid Calcium Phosphorus Magnesium AST ALT Lactate Dehydrogenase Total Bilirubin Direct Bilirubin CK-MB (CK-2) C-Reactive Protein NT-Pro-B Natriuret Pep Total Protein Albumin Arterial Blood Glucose Urine WBC (Auto) Urine Creatinine 12/30/19 12/30/19 12/30/19 03:58 03:58 04:59 WBC RBC 3.54 L Hgb 9.8 L Hct 30.7 L MCHC RDW 16.8 H MCV MCH Lymph % (Auto) [place] % (Auto) [place] # Eos # Lymph # (Auto) [place] # (Auto) Eos # (Auto) Seg Neutrophils % Seg Neuts % (Manual) Baso # (Auto) Lymphocytes % (Manual) Monocytes % (Manual) Eosinophils % (Manual) Basophils % (Manual) Seg Neutrophils # Seg Neutrophils # Man Lymphocytes # (Manual) Monocytes # (Manual) Eosinophils # (Manual) Nucleated RBC % Basophils # (Manual) PT INR APTT Heparin Anti-Xa Level ABG pH POC ABG pO2 ABG pO2 ABG HCO3 29.8 H ABG O2 Saturation ABG Base Excess 4.8 H POC ABG pCO2 ABG Hemoglobin 11.2 L ABG Oxyhemoglobin ABG Chloride ABG Glucose Oxyhemoglobin 93.8 L Sodium Potassium Chloride 97.8 L Carbon Dioxide BUN 26 H Creatinine Glucose 168 H POC Glucose Lactic Acid Calcium Phosphorus Magnesium AST ALT Lactate Dehydrogenase Total Bilirubin Direct Bilirubin CK-MB (CK-2) C-Reactive Protein NT-Pro-B Natriuret Pep Total Protein Albumin Arterial Blood Glucose Urine WBC (Auto) Urine Creatinine 12/30/19 12/30/19 12/30/19 05:45 11:34 17:28 WBC RBC Hgb Hct MCHC RDW MCV MCH Lymph % (Auto) [place] % (Auto) [place] # Eos # Lymph # (Auto) [place] # (Auto) Eos # (Auto) Seg Neutrophils % Seg Neuts % (Manual) Baso # (Auto) Lymphocytes % (Manual) Monocytes % (Manual) Eosinophils % (Manual) Basophils % (Manual) Seg Neutrophils # Seg Neutrophils # Man Lymphocytes # (Manual) Monocytes # (Manual) Eosinophils # (Manual) Nucleated RBC % Basophils # (Manual) PT INR APTT Heparin Anti-Xa Level ABG pH POC ABG pO2 ABG pO2 ABG HCO3 ABG O2 Saturation ABG Base Excess POC ABG pCO2 ABG Hemoglobin ABG Oxyhemoglobin ABG Chloride ABG Glucose Oxyhemoglobin Sodium Potassium Chloride Carbon Dioxide BUN Creatinine Glucose POC Glucose 163 H 180 H 150 H Lactic Acid Calcium Phosphorus Magnesium AST ALT Lactate Dehydrogenase Total Bilirubin Direct Bilirubin CK-MB (CK-2) C-Reactive Protein NT-Pro-B Natriuret Pep Total Protein Albumin Arterial Blood Glucose Urine WBC (Auto) Urine Creatinine 12/30/19 12/31/19 12/31/19 23:43 04:55 05:07 WBC RBC Hgb Hct MCHC RDW MCV MCH Lymph % (Auto) [place] % (Auto) [place] # Eos # Lymph # (Auto) [place] # (Auto) Eos # (Auto) Seg Neutrophils % Seg Neuts % (Manual) Baso # (Auto) Lymphocytes % (Manual) Monocytes % (Manual) Eosinophils % (Manual) Basophils % (Manual) Seg Neutrophils # Seg Neutrophils # Man Lymphocytes # (Manual) Monocytes # (Manual) Eosinophils # (Manual) Nucleated RBC % Basophils # (Manual) PT INR APTT Heparin Anti-Xa Level ABG pH POC ABG pO2 ABG pO2 ABG HCO3 ABG O2 Saturation ABG Base Excess POC ABG pCO2 ABG Hemoglobin ABG Oxyhemoglobin ABG Chloride ABG Glucose Oxyhemoglobin Sodium Potassium 5.6 H D Chloride Carbon Dioxide BUN 33 H Creatinine Glucose 131 H POC Glucose 142 H 134 H Lactic Acid Calcium Phosphorus Magnesium AST ALT Lactate Dehydrogenase Total Bilirubin Direct Bilirubin CK-MB (CK-2) C-Reactive Protein NT-Pro-B Natriuret Pep Total Protein Albumin Arterial Blood Glucose Urine WBC (Auto) Urine Creatinine 12/31/19 12/31/19 12/31/19 11:30 17:19 17:36 WBC RBC Hgb Hct MCHC RDW MCV MCH Lymph % (Auto) [place] % (Auto) [place] # Eos # Lymph # (Auto) [place] # (Auto) Eos # (Auto) Seg Neutrophils % Seg Neuts % (Manual) Baso # (Auto) Lymphocytes % (Manual) Monocytes % (Manual) Eosinophils % (Manual) Basophils % (Manual) Seg Neutrophils # Seg Neutrophils # Man Lymphocytes # (Manual) Monocytes # (Manual) Eosinophils # (Manual) Nucleated RBC % Basophils # (Manual) PT INR APTT Heparin Anti-Xa Level ABG pH POC ABG pO2 ABG pO2 ABG HCO3 ABG O2 Saturation ABG Base Excess POC ABG pCO2 ABG Hemoglobin ABG Oxyhemoglobin ABG Chloride ABG Glucose Oxyhemoglobin Sodium Potassium Chloride Carbon Dioxide BUN 35 H Creatinine Glucose 156 H POC Glucose 158 H 181 H Lactic Acid Calcium Phosphorus Magnesium AST ALT Lactate Dehydrogenase Total Bilirubin Direct Bilirubin CK-MB (CK-2) C-Reactive Protein NT-Pro-B Natriuret Pep Total Protein Albumin Arterial Blood Glucose Urine WBC (Auto) Urine Creatinine 12/31/19 12/31/19 12/31/19 18:16 19:41 21:53 WBC RBC Hgb Hct MCHC RDW MCV MCH Lymph % (Auto) [place] % (Auto) [place] # Eos # Lymph # (Auto) [place] # (Auto) Eos # (Auto) Seg Neutrophils % Seg Neuts % (Manual) Baso # (Auto) Lymphocytes % (Manual) Monocytes % (Manual) Eosinophils % (Manual) Basophils % (Manual) Seg Neutrophils # Seg Neutrophils # Man Lymphocytes # (Manual) Monocytes # (Manual) Eosinophils # (Manual) Nucleated RBC % Basophils # (Manual) PT INR APTT Heparin Anti-Xa Level 0.20 L ABG pH POC ABG pO2 ABG pO2 ABG HCO3 ABG O2 Saturation ABG Base Excess POC ABG pCO2 ABG Hemoglobin ABG Oxyhemoglobin ABG Chloride ABG Glucose Oxyhemoglobin Sodium Potassium Chloride Carbon Dioxide BUN 34 H Creatinine Glucose 169 H POC Glucose 141 H Lactic Acid Calcium Phosphorus Magnesium AST ALT Lactate Dehydrogenase Total Bilirubin Direct Bilirubin CK-MB (CK-2) C-Reactive Protein NT-Pro-B Natriuret Pep Total Protein Albumin Arterial Blood Glucose Urine WBC (Auto) Urine Creatinine 12/31/19 01/01/20 01/01/20 23:51 05:17 10:40 WBC RBC Hgb Hct MCHC RDW MCV MCH Lymph % (Auto) [place] % (Auto) [place] # Eos # Lymph # (Auto) [place] # (Auto) Eos # (Auto) Seg Neutrophils % Seg Neuts % (Manual) Baso # (Auto) Lymphocytes % (Manual) Monocytes % (Manual) Eosinophils % (Manual) Basophils % (Manual) Seg Neutrophils # Seg Neutrophils # Man Lymphocytes # (Manual) Monocytes # (Manual) Eosinophils # (Manual) Nucleated RBC % Basophils # (Manual) PT INR APTT Heparin Anti-Xa Level ABG pH POC ABG pO2 ABG pO2 ABG HCO3 ABG O2 Saturation ABG Base Excess POC ABG pCO2 ABG Hemoglobin ABG Oxyhemoglobin ABG Chloride ABG Glucose Oxyhemoglobin Sodium Potassium Chloride Carbon Dioxide BUN 31 H Creatinine 0.7 L Glucose 137 H POC Glucose 131 H 155 H Lactic Acid Calcium Phosphorus Magnesium AST 73 H ALT 97 H Lactate Dehydrogenase Total Bilirubin Direct Bilirubin CK-MB (CK-2) C-Reactive Protein NT-Pro-B Natriuret Pep 3866 H Total Protein Albumin 2.8 L Arterial Blood Glucose Urine WBC (Auto) Urine Creatinine 01/01/20 01/01/20 01/01/20 12:26 15:33 17:53 WBC 14.3 H RBC 3.35 L Hgb 9.1 L Hct 28.8 L MCHC RDW 17.0 H MCV MCH 27 L Lymph % (Auto) 7.0 L [place] % (Auto) 7.6 H [place] # Eos # Lymph # (Auto) 1.0 L [place] # (Auto) 1.1 H Eos # (Auto) Seg Neutrophils % 83.3 H Seg Neuts % (Manual) Baso # (Auto) Lymphocytes % (Manual) Monocytes % (Manual) Eosinophils % (Manual) Basophils % (Manual) Seg Neutrophils # 12.0 H Seg Neutrophils # Man Lymphocytes # (Manual) Monocytes # (Manual) Eosinophils # (Manual) Nucleated RBC % Basophils # (Manual) PT INR APTT Heparin Anti-Xa Level ABG pH POC ABG pO2 ABG pO2 ABG HCO3 ABG O2 Saturation ABG Base Excess POC ABG pCO2 ABG Hemoglobin ABG Oxyhemoglobin ABG Chloride ABG Glucose Oxyhemoglobin Sodium Potassium Chloride Carbon Dioxide BUN Creatinine Glucose POC Glucose 128 H 128 H Lactic Acid Calcium Phosphorus Magnesium AST ALT Lactate Dehydrogenase Total Bilirubin Direct Bilirubin CK-MB (CK-2) C-Reactive Protein NT-Pro-B Natriuret Pep Total Protein Albumin Arterial Blood Glucose Urine WBC (Auto) Urine Creatinine 01/01/20 01/02/20 01/02/20 23:04 05:39 07:00 WBC RBC Hgb Hct MCHC RDW MCV MCH Lymph % (Auto) [place] % (Auto) [place] # Eos # Lymph # (Auto) [place] # (Auto) Eos # (Auto) Seg Neutrophils % Seg Neuts % (Manual) Baso # (Auto) Lymphocytes % (Manual) Monocytes % (Manual) Eosinophils % (Manual) Basophils % (Manual) Seg Neutrophils # Seg Neutrophils # Man Lymphocytes # (Manual) Monocytes # (Manual) Eosinophils # (Manual) Nucleated RBC % Basophils # (Manual) PT INR APTT Heparin Anti-Xa Level 0.13 L ABG pH POC ABG pO2 ABG pO2 ABG HCO3 ABG O2 Saturation ABG Base Excess POC ABG pCO2 ABG Hemoglobin ABG Oxyhemoglobin ABG Chloride ABG Glucose Oxyhemoglobin Sodium Potassium Chloride Carbon Dioxide BUN Creatinine Glucose POC Glucose 120 H 169 H Lactic Acid Calcium Phosphorus Magnesium AST ALT Lactate Dehydrogenase Total Bilirubin Direct Bilirubin CK-MB (CK-2) C-Reactive Protein NT-Pro-B Natriuret Pep Total Protein Albumin Arterial Blood Glucose Urine WBC (Auto) Urine Creatinine 01/02/20 01/02/20 01/02/20 12:15 14:06 17:58 WBC RBC Hgb Hct MCHC RDW MCV MCH Lymph % (Auto) [place] % (Auto) [place] # Eos # Lymph # (Auto) [place] # (Auto) Eos # (Auto) Seg Neutrophils % Seg Neuts % (Manual) Baso # (Auto) Lymphocytes % (Manual) Monocytes % (Manual) Eosinophils % (Manual) Basophils % (Manual) Seg Neutrophils # Seg Neutrophils # Man Lymphocytes # (Manual) Monocytes # (Manual) Eosinophils # (Manual) Nucleated RBC % Basophils # (Manual) PT INR APTT Heparin Anti-Xa Level < 0.10 L ABG pH POC ABG pO2 ABG pO2 ABG HCO3 ABG O2 Saturation ABG Base Excess POC ABG pCO2 ABG Hemoglobin ABG Oxyhemoglobin ABG Chloride ABG Glucose Oxyhemoglobin Sodium Potassium Chloride Carbon Dioxide BUN Creatinine Glucose POC Glucose 190 H 198 H Lactic Acid Calcium Phosphorus Magnesium AST ALT Lactate Dehydrogenase Total Bilirubin Direct Bilirubin CK-MB (CK-2) C-Reactive Protein NT-Pro-B Natriuret Pep Total Protein Albumin Arterial Blood Glucose Urine WBC (Auto) Urine Creatinine 01/02/20 01/02/20 01/03/20 21:43 23:33 05:42 WBC RBC Hgb Hct MCHC RDW MCV MCH Lymph % (Auto) [place] % (Auto) [place] # Eos # Lymph # (Auto) [place] # (Auto) Eos # (Auto) Seg Neutrophils % Seg Neuts % (Manual) Baso # (Auto) Lymphocytes % (Manual) Monocytes % (Manual) Eosinophils % (Manual) Basophils % (Manual) Seg Neutrophils # Seg Neutrophils # Man Lymphocytes # (Manual) Monocytes # (Manual) Eosinophils # (Manual) Nucleated RBC % Basophils # (Manual) PT INR APTT Heparin Anti-Xa Level 0.10 L ABG pH POC ABG pO2 ABG pO2 ABG HCO3 ABG O2 Saturation ABG Base Excess POC ABG pCO2 ABG Hemoglobin ABG Oxyhemoglobin ABG Chloride ABG Glucose Oxyhemoglobin Sodium Potassium Chloride Carbon Dioxide BUN Creatinine Glucose POC Glucose 180 H 163 H Lactic Acid Calcium Phosphorus Magnesium AST ALT Lactate Dehydrogenase Total Bilirubin Direct Bilirubin CK-MB (CK-2) C-Reactive Protein NT-Pro-B Natriuret Pep Total Protein Albumin Arterial Blood Glucose Urine WBC (Auto) Urine Creatinine 01/03/20 01/03/20 01/03/20 06:50 07:25 07:45 WBC 12.1 H RBC 3.35 L Hgb 9.0 L Hct 28.9 L MCHC 31 L RDW 16.6 H MCV MCH 27 L Lymph % (Auto) 13.0 L [place] % (Auto) 8.6 H [place] # Eos # Lymph # (Auto) [place] # (Auto) 1.0 H Eos # (Auto) Seg Neutrophils % 75.9 H Seg Neuts % (Manual) Baso # (Auto) Lymphocytes % (Manual) Monocytes % (Manual) Eosinophils % (Manual) Basophils % (Manual) Seg Neutrophils # 9.2 H Seg Neutrophils # Man Lymphocytes # (Manual) Monocytes # (Manual) Eosinophils # (Manual) Nucleated RBC % Basophils # (Manual) PT INR APTT Heparin Anti-Xa Level 0.29 L ABG pH POC ABG pO2 ABG pO2 ABG HCO3 ABG O2 Saturation ABG Base Excess POC ABG pCO2 ABG Hemoglobin ABG Oxyhemoglobin ABG Chloride ABG Glucose Oxyhemoglobin Sodium Potassium 3.3 L D Chloride Carbon Dioxide 35 H D BUN 23 H Creatinine 0.6 L Glucose 149 H POC Glucose Lactic Acid Calcium Phosphorus Magnesium AST ALT 88 H Lactate Dehydrogenase Total Bilirubin Direct Bilirubin CK-MB (CK-2) C-Reactive Protein NT-Pro-B Natriuret Pep Total Protein 6.2 L Albumin 2.9 L Arterial Blood Glucose Urine WBC (Auto) Urine Creatinine 01/03/20 01/03/20 01/03/20 12:05 17:42 18:30 WBC RBC Hgb Hct MCHC RDW MCV MCH Lymph % (Auto) [place] % (Auto) [place] # Eos # Lymph # (Auto) [place] # (Auto) Eos # (Auto) Seg Neutrophils % Seg Neuts % (Manual) Baso # (Auto) Lymphocytes % (Manual) Monocytes % (Manual) Eosinophils % (Manual) Basophils % (Manual) Seg Neutrophils # Seg Neutrophils # Man Lymphocytes # (Manual) Monocytes # (Manual) Eosinophils # (Manual) Nucleated RBC % Basophils # (Manual) PT INR APTT Heparin Anti-Xa Level ABG pH POC ABG pO2 ABG pO2 70.7 L ABG HCO3 36.1 H ABG O2 Saturation 94.4 L ABG Base Excess 10.0 H POC ABG pCO2 ABG Hemoglobin 9.7 L ABG Oxyhemoglobin ABG Chloride ABG Glucose Oxyhemoglobin 91.8 L Sodium Potassium Chloride Carbon Dioxide BUN Creatinine Glucose POC Glucose 128 H 132 H Lactic Acid Calcium Phosphorus Magnesium AST ALT Lactate Dehydrogenase Total Bilirubin Direct Bilirubin CK-MB (CK-2) C-Reactive Protein NT-Pro-B Natriuret Pep Total Protein Albumin Arterial Blood Glucose Urine WBC (Auto) Urine Creatinine 01/04/20 01/04/20 01/04/20 00:10 04:26 05:23 WBC RBC Hgb Hct MCHC RDW MCV MCH Lymph % (Auto) [place] % (Auto) [place] # Eos # Lymph # (Auto) [place] # (Auto) Eos # (Auto) Seg Neutrophils % Seg Neuts % (Manual) Baso # (Auto) Lymphocytes % (Manual) Monocytes % (Manual) Eosinophils % (Manual) Basophils % (Manual) Seg Neutrophils # Seg Neutrophils # Man Lymphocytes # (Manual) Monocytes # (Manual) Eosinophils # (Manual) Nucleated RBC % Basophils # (Manual) PT INR APTT Heparin Anti-Xa Level 0.16 L ABG pH POC ABG pO2 ABG pO2 ABG HCO3 ABG O2 Saturation ABG Base Excess POC ABG pCO2 ABG Hemoglobin ABG Oxyhemoglobin ABG Chloride ABG Glucose Oxyhemoglobin Sodium Potassium Chloride Carbon Dioxide BUN Creatinine Glucose POC Glucose 121 H 119 H Lactic Acid Calcium Phosphorus Magnesium AST ALT Lactate Dehydrogenase Total Bilirubin Direct Bilirubin CK-MB (CK-2) C-Reactive Protein NT-Pro-B Natriuret Pep Total Protein Albumin Arterial Blood Glucose Urine WBC (Auto) Urine Creatinine 01/04/20 01/04/20 01/04/20 09:50 09:50 12:18 WBC 15.4 H RBC 3.30 L Hgb 8.7 L Hct 28.2 L MCHC 31 L RDW 17.0 H MCV MCH 26 L Lymph % (Auto) [place] % (Auto) 7.6 H [place] # Eos # Lymph # (Auto) [place] # (Auto) 1.2 H Eos # (Auto) Seg Neutrophils % 75.4 H Seg Neuts % (Manual) Baso # (Auto) Lymphocytes % (Manual) Monocytes % (Manual) Eosinophils % (Manual) Basophils % (Manual) Seg Neutrophils # 11.6 H Seg Neutrophils # Man Lymphocytes # (Manual) Monocytes # (Manual) Eosinophils # (Manual) Nucleated RBC % Basophils # (Manual) PT INR APTT Heparin Anti-Xa Level ABG pH POC ABG pO2 ABG pO2 ABG HCO3 ABG O2 Saturation ABG Base Excess POC ABG pCO2 ABG Hemoglobin ABG Oxyhemoglobin ABG Chloride ABG Glucose Oxyhemoglobin Sodium 148 H Potassium 3.5 L Chloride Carbon Dioxide 32 H BUN Creatinine 0.6 L Glucose 114 H POC Glucose 111 H Lactic Acid Calcium Phosphorus Magnesium AST ALT 59 H Lactate Dehydrogenase Total Bilirubin Direct Bilirubin CK-MB (CK-2) C-Reactive Protein NT-Pro-B Natriuret Pep Total Protein Albumin 2.6 L Arterial Blood Glucose Urine WBC (Auto) Urine Creatinine 01/05/20 01/05/20 01/05/20 04:05 04:05 05:19 WBC 11.7 H RBC 3.50 L Hgb 9.3 L Hct 29.9 L MCHC 31 L RDW 16.6 H MCV MCH 27 L Lymph % (Auto) 13.1 L [place] % (Auto) 9.7 H [place] # Eos # Lymph # (Auto) [place] # (Auto) 1.1 H Eos # (Auto) Seg Neutrophils % 74.0 H Seg Neuts % (Manual) Baso # (Auto) Lymphocytes % (Manual) Monocytes % (Manual) Eosinophils % (Manual) Basophils % (Manual) Seg Neutrophils # 8.6 H Seg Neutrophils # Man Lymphocytes # (Manual) Monocytes # (Manual) Eosinophils # (Manual) Nucleated RBC % Basophils # (Manual) PT INR APTT Heparin Anti-Xa Level ABG pH POC ABG pO2 ABG pO2 ABG HCO3 ABG O2 Saturation ABG Base Excess POC ABG pCO2 ABG Hemoglobin ABG Oxyhemoglobin ABG Chloride ABG Glucose Oxyhemoglobin Sodium 151 H Potassium Chloride Carbon Dioxide 34 H BUN Creatinine 0.7 L Glucose POC Glucose 112 H Lactic Acid Calcium Phosphorus Magnesium AST ALT 59 H [place] Dehydrogenase Total Bilirubin Direct Bilirubin CK-MB (CK-2) C-Reactive Protein NT-Pro-B Natriuret Pep Total Protein 5.8 L Albumin 2.6 L Arterial Blood Glucose Urine WBC (Auto) Urine Creatinine 01/05/20 01/06/20 01/06/20 16:04 00:23 04:44 WBC RBC 3.36 L Hgb 8.9 L Hct 28.7 L MCHC 31 L RDW 16.9 H MCV MCH 26 L Lymph % (Auto) [place] % (Auto) 9.4 H [place] # Eos # Lymph # (Auto) [place] # (Auto) Eos # (Auto) Seg Neutrophils % Seg Neuts % (Manual) Baso # (Auto) Lymphocytes % (Manual) Monocytes % (Manual) Eosinophils % (Manual) Basophils % (Manual) Seg Neutrophils # Seg Neutrophils # Man Lymphocytes # (Manual) Monocytes # (Manual) Eosinophils # (Manual) Nucleated RBC % Basophils # (Manual) PT INR APTT Heparin Anti-Xa Level ABG pH POC ABG pO2 ABG pO2 ABG HCO3 ABG O2 Saturation ABG Base Excess POC ABG pCO2 ABG Hemoglobin ABG Oxyhemoglobin ABG Chloride ABG Glucose Oxyhemoglobin Sodium 151 H Potassium 3.2 L Chloride Carbon Dioxide 34 H BUN Creatinine 0.6 L Glucose POC Glucose 107 H Lactic Acid Calcium Phosphorus Magnesium AST ALT Lactate Dehydrogenase Total Bilirubin Direct Bilirubin CK-MB (CK-2) C-Reactive Protein NT-Pro-B Natriuret Pep Total Protein Albumin Arterial Blood Glucose Urine WBC (Auto) Urine Creatinine 01/06/20 01/06/20 01/06/20 04:44 05:33 12:04 WBC RBC Hgb Hct MCHC RDW MCV MCH Lymph % (Auto) [place] % (Auto) [place] # Eos # Lymph # (Auto) [place] # (Auto) Eos # (Auto) Seg Neutrophils % Seg Neuts % (Manual) Baso # (Auto) Lymphocytes % (Manual) Monocytes % (Manual) Eosinophils % (Manual) Basophils % (Manual) Seg Neutrophils # Seg Neutrophils # Man Lymphocytes # (Manual) Monocytes # (Manual) Eosinophils # (Manual) Nucleated RBC % Basophils # (Manual) PT INR APTT Heparin Anti-Xa Level ABG pH POC ABG pO2 ABG pO2 ABG HCO3 ABG O2 Saturation ABG Base Excess POC ABG pCO2 ABG Hemoglobin ABG Oxyhemoglobin ABG Chloride ABG Glucose Oxyhemoglobin Sodium 151 H Potassium 3.4 L Chloride Carbon Dioxide 33 H BUN Creatinine 0.6 L Glucose 118 H POC Glucose 118 H 123 H Lactic Acid Calcium Phosphorus Magnesium AST ALT Lactate Dehydrogenase Total Bilirubin Direct Bilirubin CK-MB (CK-2) C-Reactive Protein NT-Pro-B Natriuret Pep Total Protein 6.2 L Albumin 2.6 L Arterial Blood Glucose Urine WBC (Auto) Urine Creatinine 01/06/20 01/07/20 01/07/20 17:54 00:06 04:10 WBC RBC 3.42 L Hgb 8.9 L Hct 29.0 L MCHC 31 L RDW 17.1 H MCV MCH 26 L Lymph % (Auto) [place] % (Auto) 8.4 H [place] # Eos # Lymph # (Auto) [place] # (Auto) Eos # (Auto) Seg Neutrophils % Seg Neuts % (Manual) Baso # (Auto) Lymphocytes % (Manual) Monocytes % (Manual) Eosinophils % (Manual) Basophils % (Manual) Seg Neutrophils # Seg Neutrophils # Man Lymphocytes # (Manual) Monocytes # (Manual) Eosinophils # (Manual) Nucleated RBC % Basophils # (Manual) PT INR APTT Heparin Anti-Xa Level ABG pH POC ABG pO2 ABG pO2 ABG HCO3 ABG O2 Saturation ABG Base Excess POC ABG pCO2 ABG Hemoglobin ABG Oxyhemoglobin ABG Chloride ABG Glucose Oxyhemoglobin Sodium Potassium Chloride Carbon Dioxide BUN Creatinine Glucose POC Glucose 112 H 126 H Lactic Acid Calcium Phosphorus Magnesium AST ALT Lactate Dehydrogenase Total Bilirubin Direct Bilirubin CK-MB (CK-2) C-Reactive Protein NT-Pro-B Natriuret Pep Total Protein Albumin Arterial Blood Glucose Urine WBC (Auto) Urine Creatinine 01/07/20 01/07/20 01/07/20 04:10 05:59 12:27 WBC RBC Hgb Hct MCHC RDW MCV MCH Lymph % (Auto) [place] % (Auto) [place] # Eos # Lymph # (Auto) [place] # (Auto) Eos # (Auto) Seg Neutrophils % Seg Neuts % (Manual) Baso # (Auto) Lymphocytes % (Manual) Monocytes % (Manual) Eosinophils % (Manual) Basophils % (Manual) Seg Neutrophils # Seg Neutrophils # Man Lymphocytes # (Manual) Monocytes # (Manual) Eosinophils # (Manual) Nucleated RBC % Basophils # (Manual) PT INR APTT Heparin Anti-Xa Level ABG pH POC ABG pO2 ABG pO2 ABG HCO3 ABG O2 Saturation ABG Base Excess POC ABG pCO2 ABG Hemoglobin ABG Oxyhemoglobin ABG Chloride ABG Glucose Oxyhemoglobin Sodium 153 H Potassium 3.5 L Chloride Carbon Dioxide 34 H BUN Creatinine 0.6 L Glucose 121 H POC Glucose 121 H 126 H Lactic Acid Calcium Phosphorus Magnesium AST ALT Lactate Dehydrogenase Total Bilirubin Direct Bilirubin CK-MB (CK-2) C-Reactive Protein NT-Pro-B Natriuret Pep Total Protein 5.9 L Albumin 2.4 L Arterial Blood Glucose Urine WBC (Auto) Urine Creatinine 01/07/20 01/08/20 01/08/20 18:12 00:03 05:41 WBC RBC Hgb Hct MCHC RDW MCV MCH Lymph % (Auto) [place] % (Auto) [place] # Eos # Lymph # (Auto) [place] # (Auto) Eos # (Auto) Seg Neutrophils % Seg Neuts % (Manual) Baso # (Auto) Lymphocytes % (Manual) Monocytes % (Manual) Eosinophils % (Manual) Basophils % (Manual) Seg Neutrophils # Seg Neutrophils # Man Lymphocytes # (Manual) Monocytes # (Manual) Eosinophils # (Manual) Nucleated RBC % Basophils # (Manual) PT INR APTT Heparin Anti-Xa Level ABG pH POC ABG pO2 ABG pO2 ABG HCO3 ABG O2 Saturation ABG Base Excess POC ABG pCO2 ABG Hemoglobin ABG Oxyhemoglobin ABG Chloride ABG Glucose Oxyhemoglobin Sodium Potassium Chloride Carbon Dioxide BUN Creatinine Glucose POC Glucose 124 H 130 H 138 H Lactic Acid Calcium Phosphorus Magnesium AST ALT Lactate Dehydrogenase Total Bilirubin Direct Bilirubin CK-MB (CK-2) C-Reactive Protein NT-Pro-B Natriuret Pep Total Protein Albumin Arterial Blood Glucose Urine WBC (Auto) Urine Creatinine 01/08/20 01/08/20 01/08/20 09:28 11:42 18:21 WBC RBC Hgb Hct MCHC RDW MCV MCH Lymph % (Auto) [place] % (Auto) [place] # Eos # Lymph # (Auto) [place] # (Auto) Eos # (Auto) Seg Neutrophils % Seg Neuts % (Manual) Baso # (Auto) Lymphocytes % (Manual) Monocytes % (Manual) Eosinophils % (Manual) Basophils % (Manual) Seg Neutrophils # Seg Neutrophils # Man Lymphocytes # (Manual) Monocytes # (Manual) Eosinophils # (Manual) Nucleated RBC % Basophils # (Manual) PT INR APTT Heparin Anti-Xa Level ABG pH POC ABG pO2 ABG pO2 ABG HCO3 ABG O2 Saturation ABG Base Excess POC ABG pCO2 ABG Hemoglobin ABG Oxyhemoglobin ABG Chloride ABG Glucose Oxyhemoglobin Sodium Potassium Chloride Carbon Dioxide BUN Creatinine Glucose POC Glucose 181 H 150 H 129 H Lactic Acid Calcium Phosphorus Magnesium AST ALT Lactate Dehydrogenase Total Bilirubin Direct Bilirubin CK-MB (CK-2) C-Reactive Protein NT-Pro-B Natriuret Pep Total Protein Albumin Arterial Blood Glucose Urine WBC (Auto) Urine Creatinine 01/08/20 01/08/20 01/09/20 19:25 23:55 04:11 WBC RBC 3.43 L Hgb 8.9 L Hct 28.7 L MCHC 31 L RDW 17.6 H MCV MCH 26 L Lymph % (Auto) [place] % (Auto) 8.6 H [place] # Eos # Lymph # (Auto) [place] # (Auto) Eos # (Auto) Seg Neutrophils % Seg Neuts % (Manual) Baso # (Auto) Lymphocytes % (Manual) Monocytes % (Manual) Eosinophils % (Manual) Basophils % (Manual) Seg Neutrophils # Seg Neutrophils # Man Lymphocytes # (Manual) Monocytes # (Manual) Eosinophils # (Manual) Nucleated RBC % Basophils # (Manual) PT INR APTT Heparin Anti-Xa Level ABG pH POC ABG pO2 ABG pO2 ABG HCO3 ABG O2 Saturation ABG Base Excess POC ABG pCO2 ABG Hemoglobin ABG Oxyhemoglobin ABG Chloride ABG Glucose Oxyhemoglobin Sodium Potassium Chloride Carbon Dioxide BUN Creatinine 0.7 L Glucose 117 H POC Glucose 132 H Lactic Acid Calcium Phosphorus Magnesium AST ALT Lactate Dehydrogenase Total Bilirubin Direct Bilirubin CK-MB (CK-2) C-Reactive Protein NT-Pro-B Natriuret Pep Total Protein Albumin Arterial Blood Glucose Urine WBC (Auto) Urine Creatinine 01/09/20 01/09/20 01/09/20 04:11 05:38 22:58 WBC RBC Hgb Hct MCHC RDW MCV MCH Lymph % (Auto) [place] % (Auto) [place] # Eos # Lymph # (Auto) [place] # (Auto) Eos # (Auto) Seg Neutrophils % Seg Neuts % (Manual) Baso # (Auto) Lymphocytes % (Manual) Monocytes % (Manual) Eosinophils % (Manual) Basophils % (Manual) Seg Neutrophils # Seg Neutrophils # Man Lymphocytes # (Manual) Monocytes # (Manual) Eosinophils # (Manual) Nucleated RBC % Basophils # (Manual) PT INR APTT Heparin Anti-Xa Level ABG pH POC ABG pO2 ABG pO2 ABG HCO3 ABG O2 Saturation ABG Base Excess POC ABG pCO2 ABG Hemoglobin ABG Oxyhemoglobin ABG Chloride ABG Glucose Oxyhemoglobin Sodium 147 H Potassium 3.3 L D Chloride Carbon Dioxide 32 H BUN Creatinine 0.6 L Glucose 106 H POC Glucose 107 H 113 H Lactic Acid Calcium Phosphorus Magnesium AST ALT Lactate Dehydrogenase Total Bilirubin Direct Bilirubin CK-MB (CK-2) C-Reactive Protein NT-Pro-B Natriuret Pep Total Protein Albumin Arterial Blood Glucose Urine WBC (Auto) Urine Creatinine 01/10/20 01/10/20 01/10/20 04:05 11:36 17:54 WBC RBC Hgb Hct MCHC RDW MCV MCH Lymph % (Auto) [place] % (Auto) [place] # Eos # Lymph # (Auto) [place] # (Auto) Eos # (Auto) Seg Neutrophils % Seg Neuts % (Manual) Baso # (Auto) Lymphocytes % (Manual) Monocytes % (Manual) Eosinophils % (Manual) Basophils % (Manual) Seg Neutrophils # Seg Neutrophils # Man Lymphocytes # (Manual) Monocytes # (Manual) Eosinophils # (Manual) Nucleated RBC % Basophils # (Manual) PT INR APTT Heparin Anti-Xa Level ABG pH POC ABG pO2 ABG pO2 ABG HCO3 ABG O2 Saturation ABG Base Excess POC ABG pCO2 ABG Hemoglobin ABG Oxyhemoglobin ABG Chloride ABG Glucose Oxyhemoglobin Sodium Potassium Chloride Carbon Dioxide BUN Creatinine 0.7 L Glucose 110 H POC Glucose 129 H 117 H Lactic Acid Calcium Phosphorus Magnesium AST ALT Lactate Dehydrogenase Total Bilirubin Direct Bilirubin CK-MB (CK-2) C-Reactive Protein NT-Pro-B Natriuret Pep Total Protein Albumin Arterial Blood Glucose Urine WBC (Auto) Urine Creatinine 01/10/20 01/11/20 01/11/20 23:52 03:19 12:09 WBC RBC Hgb Hct MCHC RDW MCV MCH Lymph % (Auto) [place] % (Auto) [place] # Eos # Lymph # (Auto) [place] # (Auto) Eos # (Auto) Seg Neutrophils % Seg Neuts % (Manual) Baso # (Auto) Lymphocytes % (Manual) Monocytes % (Manual) Eosinophils % (Manual) Basophils % (Manual) Seg Neutrophils # Seg Neutrophils # Man Lymphocytes # (Manual) Monocytes # (Manual) Eosinophils # (Manual) Nucleated RBC % Basophils # (Manual) PT INR APTT Heparin Anti-Xa Level ABG pH POC ABG pO2 ABG pO2 ABG HCO3 ABG O2 Saturation ABG Base Excess POC ABG pCO2 ABG Hemoglobin ABG Oxyhemoglobin ABG Chloride ABG Glucose Oxyhemoglobin Sodium Potassium Chloride Carbon Dioxide BUN Creatinine Glucose POC Glucose 117 H 136 H 115 H Lactic Acid Calcium Phosphorus Magnesium AST ALT Lactate Dehydrogenase Total Bilirubin Direct Bilirubin CK-MB (CK-2) C-Reactive Protein NT-Pro-B Natriuret Pep Total Protein Albumin Arterial Blood Glucose Urine WBC (Auto) Urine Creatinine 01/11/20 01/11/20 01/12/20 18:27 23:28 00:23 WBC RBC Hgb 9.8 L Hct 31.6 L MCHC 31 L RDW 17.8 H MCV 83 L MCH 26 L Lymph % (Auto) [place] % (Auto) 8.0 H [place] # Eos # Lymph # (Auto) [place] # (Auto) Eos # (Auto) Seg Neutrophils % Seg Neuts % (Manual) Baso # (Auto) Lymphocytes % (Manual) Monocytes % (Manual) Eosinophils % (Manual) Basophils % (Manual) Seg Neutrophils # Seg Neutrophils # Man Lymphocytes # (Manual) Monocytes # (Manual) Eosinophils # (Manual) Nucleated RBC % Basophils # (Manual) PT INR APTT Heparin Anti-Xa Level ABG pH POC ABG pO2 ABG pO2 ABG HCO3 ABG O2 Saturation ABG Base Excess POC ABG pCO2 ABG Hemoglobin ABG Oxyhemoglobin ABG Chloride ABG Glucose Oxyhemoglobin Sodium Potassium Chloride Carbon Dioxide BUN Creatinine Glucose POC Glucose 118 H 122 H Lactic Acid Calcium Phosphorus Magnesium AST ALT Lactate Dehydrogenase Total Bilirubin Direct Bilirubin CK-MB (CK-2) C-Reactive Protein NT-Pro-B Natriuret Pep Total Protein Albumin Arterial Blood Glucose Urine WBC (Auto) Urine Creatinine 01/12/20 01/12/20 01/12/20 00:23 04:18 04:18 WBC RBC Hgb 9.6 L Hct 30.9 L MCHC 31 L RDW 17.3 H MCV 81 L MCH 25 L Lymph % (Auto) [place] % (Auto) [place] # Eos # Lymph # (Auto) [place] # (Auto) Eos # (Auto) Seg Neutrophils % Seg Neuts % (Manual) Baso # (Auto) Lymphocytes % (Manual) Monocytes % (Manual) Eosinophils % (Manual) Basophils % (Manual) Seg Neutrophils # Seg Neutrophils # Man Lymphocytes # (Manual) Monocytes # (Manual) Eosinophils # (Manual) Nucleated RBC % Basophils # (Manual) PT INR APTT Heparin Anti-Xa Level ABG pH POC ABG pO2 ABG pO2 ABG HCO3 ABG O2 Saturation ABG Base Excess POC ABG pCO2 ABG Hemoglobin ABG Oxyhemoglobin ABG Chloride ABG Glucose Oxyhemoglobin Sodium Potassium Chloride Carbon Dioxide BUN Creatinine 0.7 L 0.7 L Glucose 111 H 108 H POC Glucose Lactic Acid Calcium Phosphorus Magnesium AST ALT Lactate Dehydrogenase Total Bilirubin Direct Bilirubin CK-MB (CK-2) C-Reactive Protein NT-Pro-B Natriuret Pep Total Protein Albumin 2.6 L Arterial Blood Glucose Urine WBC (Auto) Urine Creatinine 01/12/20 01/12/20 01/12/20 06:03 12:27 13:58 WBC RBC Hgb Hct MCHC RDW MCV MCH Lymph % (Auto) [place] % (Auto) [place] # Eos # Lymph # (Auto) [place] # (Auto) Eos # (Auto) Seg Neutrophils % Seg Neuts % (Manual) Baso # (Auto) Lymphocytes % (Manual) Monocytes % (Manual) Eosinophils % (Manual) Basophils % (Manual) Seg Neutrophils # Seg Neutrophils # Man Lymphocytes # (Manual) Monocytes # (Manual) Eosinophils # (Manual) Nucleated RBC % Basophils # (Manual) PT INR APTT Heparin Anti-Xa Level ABG pH 7.453 H POC ABG pO2 76.6 L ABG pO2 ABG HCO3 ABG O2 Saturation ABG Base Excess POC ABG pCO2 ABG Hemoglobin 10.3 L ABG Oxyhemoglobin ABG Chloride ABG Glucose 99 H Oxyhemoglobin Sodium Potassium Chloride Carbon Dioxide BUN Creatinine Glucose POC Glucose 128 H 121 H Lactic Acid Calcium Phosphorus Magnesium AST ALT Lactate Dehydrogenase Total Bilirubin Direct Bilirubin CK-MB (CK-2) C-Reactive Protein NT-Pro-B Natriuret Pep Total Protein Albumin Arterial Blood Glucose 99 H Urine WBC (Auto) Urine Creatinine 01/12/20 01/13/20 01/13/20 18:24 12:01 17:46 WBC RBC Hgb Hct MCHC RDW MCV MCH Lymph % (Auto) [place] % (Auto) [place] # Eos # Lymph # (Auto) [place] # (Auto) Eos # (Auto) Seg Neutrophils % Seg Neuts % (Manual) Baso # (Auto) Lymphocytes % (Manual) Monocytes % (Manual) Eosinophils % (Manual) Basophils % (Manual) Seg Neutrophils # Seg Neutrophils # Man Lymphocytes # (Manual) Monocytes # (Manual) Eosinophils # (Manual) Nucleated RBC % Basophils # (Manual) PT INR APTT Heparin Anti-Xa Level ABG pH POC ABG pO2 ABG pO2 ABG HCO3 ABG O2 Saturation ABG Base Excess POC ABG pCO2 ABG Hemoglobin ABG Oxyhemoglobin ABG Chloride ABG Glucose Oxyhemoglobin Sodium Potassium Chloride Carbon Dioxide BUN Creatinine Glucose POC Glucose 119 H 107 H 124 H Lactic Acid Calcium Phosphorus Magnesium AST ALT Lactate Dehydrogenase Total Bilirubin Direct Bilirubin CK-MB (CK-2) C-Reactive Protein NT-Pro-B Natriuret Pep Total Protein Albumin Arterial Blood Glucose Urine WBC (Auto) Urine Creatinine 01/13/20 01/14/20 01/14/20 20:40 00:10 05:33 WBC RBC Hgb Hct MCHC RDW MCV MCH Lymph % (Auto) [place] % (Auto) [place] # Eos # Lymph # (Auto) [place] # (Auto) Eos # (Auto) Seg Neutrophils % Seg Neuts % (Manual) Baso # (Auto) Lymphocytes % (Manual) Monocytes % (Manual) Eosinophils % (Manual) Basophils % (Manual) Seg Neutrophils # Seg Neutrophils # Man Lymphocytes # (Manual) Monocytes # (Manual) Eosinophils # (Manual) Nucleated RBC % Basophils # (Manual) PT INR APTT Heparin Anti-Xa Level ABG pH POC ABG pO2 ABG pO2 65.3 L ABG HCO3 31.8 H ABG O2 Saturation 93.5 L ABG Base Excess 6.7 H POC ABG pCO2 ABG Hemoglobin 13.3 L ABG Oxyhemoglobin ABG Chloride ABG Glucose Oxyhemoglobin 90.9 L Sodium Potassium Chloride Carbon Dioxide BUN Creatinine Glucose POC Glucose 111 H 111 H Lactic Acid Calcium Phosphorus Magnesium AST ALT Lactate Dehydrogenase Total Bilirubin Direct Bilirubin CK-MB (CK-2) C-Reactive Protein NT-Pro-B Natriuret Pep Total Protein Albumin Arterial Blood Glucose Urine WBC (Auto) Urine Creatinine 01/14/20 01/14/20 01/14/20 12:10 16:14 16:14 WBC RBC Hgb 10.6 L Hct 34.2 L MCHC 31 L RDW 18.3 H MCV 83 L MCH 26 L Lymph % (Auto) [place] % (Auto) 7.4 H [place] # Eos # Lymph # (Auto) [place] # (Auto) Eos # (Auto) Seg Neutrophils % 71.9 H Seg Neuts % (Manual) Baso # (Auto) Lymphocytes % (Manual) Monocytes % (Manual) Eosinophils % (Manual) Basophils % (Manual) Seg Neutrophils # Seg Neutrophils # Man Lymphocytes # (Manual) Monocytes # (Manual) Eosinophils # (Manual) Nucleated RBC % Basophils # (Manual) PT INR APTT Heparin Anti-Xa Level ABG pH POC ABG pO2 ABG pO2 ABG HCO3 ABG O2 Saturation ABG Base Excess POC ABG pCO2 ABG Hemoglobin ABG Oxyhemoglobin ABG Chloride ABG Glucose Oxyhemoglobin Sodium Potassium Chloride Carbon Dioxide 31 H BUN Creatinine 0.6 L Glucose 131 H POC Glucose 139 H Lactic Acid Calcium Phosphorus Magnesium AST ALT Lactate Dehydrogenase Total Bilirubin Direct Bilirubin CK-MB (CK-2) C-Reactive Protein NT-Pro-B Natriuret Pep Total Protein Albumin Arterial Blood Glucose Urine WBC (Auto) Urine Creatinine 01/14/20 01/15/20 01/15/20 18:05 00:52 05:35 WBC RBC Hgb Hct MCHC RDW MCV MCH Lymph % (Auto) [place] % (Auto) [place] # Eos # Lymph # (Auto) [place] # (Auto) Eos # (Auto) Seg Neutrophils % Seg Neuts % (Manual) Baso # (Auto) Lymphocytes % (Manual) Monocytes % (Manual) Eosinophils % (Manual) Basophils % (Manual) Seg Neutrophils # Seg Neutrophils # Man Lymphocytes # (Manual) Monocytes # (Manual) Eosinophils # (Manual) Nucleated RBC % Basophils # (Manual) PT INR APTT Heparin Anti-Xa Level ABG pH POC ABG pO2 ABG pO2 ABG HCO3 ABG O2 Saturation ABG Base Excess POC ABG pCO2 ABG Hemoglobin ABG Oxyhemoglobin ABG Chloride ABG Glucose Oxyhemoglobin Sodium Potassium Chloride Carbon Dioxide BUN Creatinine Glucose POC Glucose 147 H 140 H 159 H Lactic Acid Calcium Phosphorus Magnesium AST ALT Lactate Dehydrogenase Total Bilirubin Direct Bilirubin CK-MB (CK-2) C-Reactive Protein NT-Pro-B Natriuret Pep Total Protein Albumin Arterial Blood Glucose Urine WBC (Auto) Urine Creatinine 01/15/20 01/15/20 01/16/20 12:52 17:43 00:32 WBC RBC Hgb Hct MCHC RDW MCV MCH Lymph % (Auto) [place] % (Auto) [place] # Eos # Lymph # (Auto) [place] # (Auto) Eos # (Auto) Seg Neutrophils % Seg Neuts % (Manual) Baso # (Auto) Lymphocytes % (Manual) Monocytes % (Manual) Eosinophils % (Manual) Basophils % (Manual) Seg Neutrophils # Seg Neutrophils # Man Lymphocytes # (Manual) Monocytes # (Manual) Eosinophils # (Manual) Nucleated RBC % Basophils # (Manual) PT INR APTT Heparin Anti-Xa Level ABG pH POC ABG pO2 ABG pO2 ABG HCO3 ABG O2 Saturation ABG Base Excess POC ABG pCO2 ABG Hemoglobin ABG Oxyhemoglobin ABG Chloride ABG Glucose Oxyhemoglobin Sodium Potassium Chloride Carbon Dioxide BUN Creatinine Glucose POC Glucose 164 H 167 H 153 H Lactic Acid Calcium Phosphorus Magnesium AST ALT Lactate Dehydrogenase Total Bilirubin Direct Bilirubin CK-MB (CK-2) C-Reactive Protein NT-Pro-B Natriuret Pep Total Protein Albumin Arterial Blood Glucose Urine WBC (Auto) Urine Creatinine 01/16/20 01/16/20 01/17/20 05:46 11:48 06:38 WBC RBC Hgb Hct MCHC RDW MCV MCH Lymph % (Auto) [place] % (Auto) [place] # Eos # Lymph # (Auto) [place] # (Auto) Eos # (Auto) Seg Neutrophils % Seg Neuts % (Manual) Baso # (Auto) Lymphocytes % (Manual) Monocytes % (Manual) Eosinophils % (Manual) Basophils % (Manual) Seg Neutrophils # Seg Neutrophils # Man Lymphocytes # (Manual) Monocytes # (Manual) Eosinophils # (Manual) Nucleated RBC % Basophils # (Manual) PT INR APTT Heparin Anti-Xa Level ABG pH POC ABG pO2 ABG pO2 ABG HCO3 ABG O2 Saturation ABG Base Excess POC ABG pCO2 ABG Hemoglobin ABG Oxyhemoglobin ABG Chloride ABG Glucose Oxyhemoglobin Sodium Potassium Chloride Carbon Dioxide BUN Creatinine Glucose POC Glucose 163 H 155 H 116 H Lactic Acid Calcium Phosphorus Magnesium AST ALT Lactate Dehydrogenase Total Bilirubin Direct Bilirubin CK-MB (CK-2) C-Reactive Protein NT-Pro-B Natriuret Pep Total Protein Albumin Arterial Blood Glucose Urine WBC (Auto) Urine Creatinine 01/17/20 01/17/20 01/18/20 11:36 17:43 00:12 WBC RBC Hgb Hct MCHC RDW MCV MCH Lymph % (Auto) [place] % (Auto) [place] # Eos # Lymph # (Auto) [place] # (Auto) Eos # (Auto) Seg Neutrophils % Seg Neuts % (Manual) Baso # (Auto) Lymphocytes % (Manual) Monocytes % (Manual) Eosinophils % (Manual) Basophils % (Manual) Seg Neutrophils # Seg Neutrophils # Man Lymphocytes # (Manual) Monocytes # (Manual) Eosinophils # (Manual) Nucleated RBC % Basophils # (Manual) PT INR APTT Heparin Anti-Xa Level ABG pH POC ABG pO2 ABG pO2 ABG HCO3 ABG O2 Saturation ABG Base Excess POC ABG pCO2 ABG Hemoglobin ABG Oxyhemoglobin ABG Chloride ABG Glucose Oxyhemoglobin Sodium Potassium Chloride Carbon Dioxide BUN Creatinine Glucose POC Glucose 110 H 134 H 108 H Lactic Acid Calcium Phosphorus Magnesium AST ALT Lactate Dehydrogenase Total Bilirubin Direct Bilirubin CK-MB (CK-2) C-Reactive Protein NT-Pro-B Natriuret Pep Total Protein Albumin Arterial Blood Glucose Urine WBC (Auto) Urine Creatinine 01/18/20 01/18/20 01/18/20 05:37 06:46 06:46 WBC RBC Hgb 10.1 L Hct 32.2 L MCHC 31 L RDW 18.1 H MCV 81 L MCH 25 L Lymph % (Auto) [place] % (Auto) [place] # Eos # Lymph # (Auto) [place] # (Auto) Eos # (Auto) Seg Neutrophils % 71.9 H Seg Neuts % (Manual) Baso # (Auto) Lymphocytes % (Manual) Monocytes % (Manual) Eosinophils % (Manual) Basophils % (Manual) Seg Neutrophils # Seg Neutrophils # Man Lymphocytes # (Manual) Monocytes # (Manual) Eosinophils # (Manual) Nucleated RBC % Basophils # (Manual) PT INR APTT Heparin Anti-Xa Level ABG pH POC ABG pO2 ABG pO2 ABG HCO3 ABG O2 Saturation ABG Base Excess POC ABG pCO2 ABG Hemoglobin ABG Oxyhemoglobin ABG Chloride ABG Glucose Oxyhemoglobin Sodium Potassium Chloride Carbon Dioxide BUN Creatinine 0.7 L Glucose 155 H POC Glucose 168 H Lactic Acid Calcium Phosphorus Magnesium AST ALT Lactate Dehydrogenase Total Bilirubin Direct Bilirubin CK-MB (CK-2) C-Reactive Protein NT-Pro-B Natriuret Pep Total Protein Albumin Arterial Blood Glucose Urine WBC (Auto) Urine Creatinine 01/18/20 01/18/20 01/18/20 12:05 17:14 23:28 WBC RBC Hgb Hct MCHC RDW MCV MCH Lymph % (Auto) [place] % (Auto) [place] # Eos # Lymph # (Auto) [place] # (Auto) Eos # (Auto) Seg Neutrophils % Seg Neuts % (Manual) Baso # (Auto) Lymphocytes % (Manual) Monocytes % (Manual) Eosinophils % (Manual) Basophils % (Manual) Seg Neutrophils # Seg Neutrophils # Man Lymphocytes # (Manual) Monocytes # (Manual) Eosinophils # (Manual) Nucleated RBC % Basophils # (Manual) PT INR APTT Heparin Anti-Xa Level ABG pH POC ABG pO2 ABG pO2 ABG HCO3 ABG O2 Saturation ABG Base Excess POC ABG pCO2 ABG Hemoglobin ABG Oxyhemoglobin ABG Chloride ABG Glucose Oxyhemoglobin Sodium Potassium Chloride Carbon Dioxide BUN Creatinine Glucose POC Glucose 128 H 126 H 128 H Lactic Acid Calcium Phosphorus Magnesium AST ALT Lactate Dehydrogenase Total Bilirubin Direct Bilirubin CK-MB (CK-2) C-Reactive Protein NT-Pro-B Natriuret Pep Total Protein Albumin Arterial Blood Glucose Urine WBC (Auto) Urine Creatinine 01/19/20 01/19/20 01/19/20 05:39 12:33 17:36 WBC RBC Hgb Hct MCHC RDW MCV MCH Lymph % (Auto) [place] % (Auto) [place] # Eos # Lymph # (Auto) [place] # (Auto) Eos # (Auto) Seg Neutrophils % Seg Neuts % (Manual) Baso # (Auto) Lymphocytes % (Manual) Monocytes % (Manual) Eosinophils % (Manual) Basophils % (Manual) Seg Neutrophils # Seg Neutrophils # Man Lymphocytes # (Manual) Monocytes # (Manual) Eosinophils # (Manual) Nucleated RBC % Basophils # (Manual) PT INR APTT Heparin Anti-Xa Level ABG pH POC ABG pO2 ABG pO2 ABG HCO3 ABG O2 Saturation ABG Base Excess POC ABG pCO2 ABG Hemoglobin ABG Oxyhemoglobin ABG Chloride ABG Glucose Oxyhemoglobin Sodium Potassium Chloride Carbon Dioxide BUN Creatinine Glucose POC Glucose 164 H 171 H 152 H Lactic Acid Calcium Phosphorus Magnesium AST ALT Lactate Dehydrogenase Total Bilirubin Direct Bilirubin CK-MB (CK-2) C-Reactive Protein NT-Pro-B Natriuret Pep Total Protein Albumin Arterial Blood Glucose Urine WBC (Auto) Urine Creatinine 01/20/20 01/20/20 01/20/20 00:12 05:20 05:35 WBC RBC Hgb 9.2 L Hct 29.4 L MCHC 31 L RDW 17.9 H MCV 81 L MCH 25 L Lymph % (Auto) [place] % (Auto) [place] # Eos # Lymph # (Auto) [place] # (Auto) Eos # (Auto) Seg Neutrophils % Seg Neuts % (Manual) Baso # (Auto) Lymphocytes % (Manual) Monocytes % (Manual) Eosinophils % (Manual) Basophils % (Manual) Seg Neutrophils # Seg Neutrophils # Man Lymphocytes # (Manual) Monocytes # (Manual) Eosinophils # (Manual) Nucleated RBC % Basophils # (Manual) PT INR APTT Heparin Anti-Xa Level ABG pH POC ABG pO2 ABG pO2 ABG HCO3 ABG O2 Saturation ABG Base Excess POC ABG pCO2 ABG Hemoglobin ABG Oxyhemoglobin ABG Chloride ABG Glucose Oxyhemoglobin Sodium Potassium Chloride Carbon Dioxide BUN Creatinine Glucose POC Glucose 120 H 136 H Lactic Acid Calcium Phosphorus Magnesium AST ALT Lactate Dehydrogenase Total Bilirubin Direct Bilirubin CK-MB (CK-2) C-Reactive Protein NT-Pro-B Natriuret Pep Total Protein Albumin Arterial Blood Glucose Urine WBC (Auto) Urine Creatinine 01/20/20 01/20/20 01/20/20 05:40 11:58 14:55 WBC RBC Hgb 9.0 L Hct 28.3 L MCHC RDW MCV MCH Lymph % (Auto) [place] % (Auto) [place] # Eos # Lymph # (Auto) [place] # (Auto) Eos # (Auto) Seg Neutrophils % Seg Neuts % (Manual) Baso # (Auto) Lymphocytes % (Manual) Monocytes % (Manual) Eosinophils % (Manual) Basophils % (Manual) Seg Neutrophils # Seg Neutrophils # Man Lymphocytes # (Manual) Monocytes # (Manual) Eosinophils # (Manual) Nucleated RBC % Basophils # (Manual) PT INR APTT Heparin Anti-Xa Level ABG pH POC ABG pO2 ABG pO2 ABG HCO3 ABG O2 Saturation ABG Base Excess POC ABG pCO2 ABG Hemoglobin ABG Oxyhemoglobin ABG Chloride ABG Glucose Oxyhemoglobin Sodium Potassium Chloride Carbon Dioxide 32 H BUN 22 H Creatinine 0.7 L Glucose 128 H POC Glucose 152 H Lactic Acid Calcium Phosphorus Magnesium AST ALT Lactate Dehydrogenase Total Bilirubin Direct Bilirubin CK-MB (CK-2) C-Reactive Protein NT-Pro-B Natriuret Pep Total Protein Albumin Arterial Blood Glucose Urine WBC (Auto) Urine Creatinine 01/20/20 01/20/20 01/20/20 14:55 18:14 21:35 WBC RBC Hgb Hct MCHC RDW MCV MCH Lymph % (Auto) [place] % (Auto) [place] # Eos # Lymph # (Auto) [place] # (Auto) Eos # (Auto) Seg Neutrophils % Seg Neuts % (Manual) Baso # (Auto) Lymphocytes % (Manual) Monocytes % (Manual) Eosinophils % (Manual) Basophils % (Manual) Seg Neutrophils # Seg Neutrophils # Man Lymphocytes # (Manual) Monocytes # (Manual) Eosinophils # (Manual) Nucleated RBC % Basophils # (Manual) PT 20.4 H INR 1.72 H APTT 40.6 H Heparin Anti-Xa Level > 2.00 H ABG pH POC ABG pO2 ABG pO2 ABG HCO3 ABG O2 Saturation ABG Base Excess POC ABG pCO2 ABG Hemoglobin ABG Oxyhemoglobin ABG Chloride ABG Glucose Oxyhemoglobin Sodium Potassium Chloride Carbon Dioxide BUN Creatinine Glucose POC Glucose 150 H Lactic Acid Calcium Phosphorus Magnesium AST ALT Lactate Dehydrogenase Total Bilirubin Direct Bilirubin CK-MB (CK-2) C-Reactive Protein NT-Pro-B Natriuret Pep Total Protein Albumin Arterial Blood Glucose Urine WBC (Auto) Urine Creatinine 01/21/20 01/21/20 01/21/20 00:30 05:47 05:59 WBC RBC Hgb Hct MCHC RDW MCV MCH Lymph % (Auto) [place] % (Auto) [place] # Eos # Lymph # (Auto) [place] # (Auto) Eos # (Auto) Seg Neutrophils % Seg Neuts % (Manual) Baso # (Auto) Lymphocytes % (Manual) Monocytes % (Manual) Eosinophils % (Manual) Basophils % (Manual) Seg Neutrophils # Seg Neutrophils # Man Lymphocytes # (Manual) Monocytes # (Manual) Eosinophils # (Manual) Nucleated RBC % Basophils # (Manual) PT INR APTT Heparin Anti-Xa Level 1.93 H ABG pH POC ABG pO2 ABG pO2 ABG HCO3 ABG O2 Saturation ABG Base Excess POC ABG pCO2 ABG Hemoglobin ABG Oxyhemoglobin ABG Chloride ABG Glucose Oxyhemoglobin Sodium Potassium Chloride Carbon Dioxide BUN Creatinine Glucose POC Glucose 126 H 148 H Lactic Acid Calcium Phosphorus Magnesium AST ALT Lactate Dehydrogenase Total Bilirubin Direct Bilirubin CK-MB (CK-2) C-Reactive Protein NT-Pro-B Natriuret Pep Total Protein Albumin Arterial Blood Glucose Urine WBC (Auto) Urine Creatinine 01/21/20 01/21/20 01/21/20 12:32 18:20 23:54 WBC RBC Hgb Hct MCHC RDW MCV MCH Lymph % (Auto) [place] % (Auto) [place] # Eos # Lymph # (Auto) [place] # (Auto) Eos # (Auto) Seg Neutrophils % Seg Neuts % (Manual) Baso # (Auto) Lymphocytes % (Manual) Monocytes % (Manual) Eosinophils % (Manual) Basophils % (Manual) Seg Neutrophils # Seg Neutrophils # Man Lymphocytes # (Manual) Monocytes # (Manual) Eosinophils # (Manual) Nucleated RBC % Basophils # (Manual) PT INR APTT Heparin Anti-Xa Level 1.28 H ABG pH POC ABG pO2 ABG pO2 ABG HCO3 ABG O2 Saturation ABG Base Excess POC ABG pCO2 ABG Hemoglobin ABG Oxyhemoglobin ABG Chloride ABG Glucose Oxyhemoglobin Sodium Potassium Chloride Carbon Dioxide BUN Creatinine Glucose POC Glucose 112 H 146 H Lactic Acid Calcium Phosphorus Magnesium AST ALT Lactate Dehydrogenase Total Bilirubin Direct Bilirubin CK-MB (CK-2) C-Reactive Protein NT-Pro-B Natriuret Pep Total Protein Albumin Arterial Blood Glucose Urine WBC (Auto) Urine Creatinine 01/22/20 01/22/20 01/22/20 04:45 04:45 05:48 WBC RBC Hgb 9.3 L Hct 29.0 L MCHC RDW MCV MCH Lymph % (Auto) [place] % (Auto) [place] # Eos # Lymph # (Auto) [place] # (Auto) Eos # (Auto) Seg Neutrophils % Seg Neuts % (Manual) Baso # (Auto) Lymphocytes % (Manual) Monocytes % (Manual) Eosinophils % (Manual) Basophils % (Manual) Seg Neutrophils # Seg Neutrophils # Man Lymphocytes # (Manual) Monocytes # (Manual) Eosinophils # (Manual) Nucleated RBC % Basophils # (Manual) PT INR APTT Heparin Anti-Xa Level 1.34 H ABG pH POC ABG pO2 ABG pO2 ABG HCO3 ABG O2 Saturation ABG Base Excess POC ABG pCO2 ABG Hemoglobin ABG Oxyhemoglobin ABG Chloride ABG Glucose Oxyhemoglobin Sodium Potassium Chloride Carbon Dioxide BUN Creatinine Glucose POC Glucose 142 H Lactic Acid Calcium Phosphorus Magnesium AST ALT Lactate Dehydrogenase Total Bilirubin Direct Bilirubin CK-MB (CK-2) C-Reactive Protein NT-Pro-B Natriuret Pep Total Protein Albumin Arterial Blood Glucose Urine WBC (Auto) Urine Creatinine 01/22/20 01/22/20 01/22/20 08:09 08:22 09:58 WBC RBC Hgb Hct MCHC RDW MCV MCH Lymph % (Auto) [place] % (Auto) [place] # Eos # Lymph # (Auto) [place] # (Auto) Eos # (Auto) Seg Neutrophils % Seg Neuts % (Manual) Baso # (Auto) Lymphocytes % (Manual) Monocytes % (Manual) Eosinophils % (Manual) Basophils % (Manual) Seg Neutrophils # Seg Neutrophils # Man Lymphocytes # (Manual) Monocytes # (Manual) Eosinophils # (Manual) Nucleated RBC % Basophils # (Manual) PT 16.9 H INR 1.34 H APTT Heparin Anti-Xa Level ABG pH POC ABG pO2 ABG pO2 ABG HCO3 ABG O2 Saturation ABG Base Excess POC ABG pCO2 ABG Hemoglobin ABG Oxyhemoglobin ABG Chloride ABG Glucose Oxyhemoglobin Sodium Potassium Chloride 97.8 L Carbon Dioxide BUN 29 H Creatinine Glucose 128 H POC Glucose 131 H Lactic Acid Calcium Phosphorus Magnesium AST ALT Lactate Dehydrogenase Total Bilirubin Direct Bilirubin CK-MB (CK-2) C-Reactive Protein NT-Pro-B Natriuret Pep Total Protein Albumin Arterial Blood Glucose Urine WBC (Auto) Urine Creatinine 01/22/20 01/22/20 01/22/20 12:44 16:13 18:18 WBC RBC Hgb Hct MCHC RDW MCV MCH Lymph % (Auto) [place] % (Auto) [place] # Eos # Lymph # (Auto) [place] # (Auto) Eos # (Auto) Seg Neutrophils % Seg Neuts % (Manual) Baso # (Auto) Lymphocytes % (Manual) Monocytes % (Manual) Eosinophils % (Manual) Basophils % (Manual) Seg Neutrophils # Seg Neutrophils # Man Lymphocytes # (Manual) Monocytes # (Manual) Eosinophils # (Manual) Nucleated RBC % Basophils # (Manual) PT INR APTT Heparin Anti-Xa Level ABG pH POC ABG pO2 ABG pO2 ABG HCO3 ABG O2 Saturation ABG Base Excess POC ABG pCO2 ABG Hemoglobin ABG Oxyhemoglobin ABG Chloride ABG Glucose Oxyhemoglobin Sodium Potassium Chloride Carbon Dioxide BUN Creatinine Glucose POC Glucose 156 H 133 H 155 H Lactic Acid Calcium Phosphorus Magnesium AST ALT Lactate Dehydrogenase Total Bilirubin Direct Bilirubin CK-MB (CK-2) C-Reactive Protein NT-Pro-B Natriuret Pep Total Protein Albumin Arterial Blood Glucose Urine WBC (Auto) Urine Creatinine 01/22/20 01/23/20 01/23/20 23:22 05:37 12:59 WBC RBC Hgb Hct MCHC RDW MCV MCH Lymph % (Auto) [place] % (Auto) [place] # Eos # Lymph # (Auto) [place] # (Auto) Eos # (Auto) Seg Neutrophils % Seg Neuts % (Manual) Baso # (Auto) Lymphocytes % (Manual) Monocytes % (Manual) Eosinophils % (Manual) Basophils % (Manual) Seg Neutrophils # Seg Neutrophils # Man Lymphocytes # (Manual) Monocytes # (Manual) Eosinophils # (Manual) Nucleated RBC % Basophils # (Manual) PT INR APTT Heparin Anti-Xa Level ABG pH POC ABG pO2 ABG pO2 ABG HCO3 ABG O2 Saturation ABG Base Excess POC ABG pCO2 ABG Hemoglobin ABG Oxyhemoglobin ABG Chloride ABG Glucose Oxyhemoglobin Sodium Potassium Chloride Carbon Dioxide BUN Creatinine Glucose POC Glucose 148 H 163 H 175 H Lactic Acid Calcium Phosphorus Magnesium AST ALT Lactate Dehydrogenase Total Bilirubin Direct Bilirubin CK-MB (CK-2) C-Reactive Protein NT-Pro-B Natriuret Pep Total Protein Albumin Arterial Blood Glucose Urine WBC (Auto) Urine Creatinine 01/23/20 01/23/20 01/24/20 17:28 23:56 04:30 WBC RBC 3.46 L Hgb 8.8 L Hct 27.8 L MCHC RDW 18.2 H MCV 81 L MCH 25 L Lymph % (Auto) [place] % (Auto) 7.8 H [place] # Eos # Lymph # (Auto) [place] # (Auto) Eos # (Auto) Seg Neutrophils % Seg Neuts % (Manual) Baso # (Auto) Lymphocytes % (Manual) Monocytes % (Manual) Eosinophils % (Manual) Basophils % (Manual) Seg Neutrophils # Seg Neutrophils # Man Lymphocytes # (Manual) Monocytes # (Manual) Eosinophils # (Manual) Nucleated RBC % Basophils # (Manual) PT INR APTT Heparin Anti-Xa Level ABG pH POC ABG pO2 ABG pO2 ABG HCO3 ABG O2 Saturation ABG Base Excess POC ABG pCO2 ABG Hemoglobin ABG Oxyhemoglobin ABG Chloride ABG Glucose Oxyhemoglobin Sodium Potassium Chloride Carbon Dioxide BUN Creatinine Glucose POC Glucose 165 H 177 H Lactic Acid Calcium Phosphorus Magnesium AST ALT Lactate Dehydrogenase Total Bilirubin Direct Bilirubin CK-MB (CK-2) C-Reactive Protein NT-Pro-B Natriuret Pep Total Protein Albumin Arterial Blood Glucose Urine WBC (Auto) Urine Creatinine 01/24/20 01/24/20 01/24/20 04:30 07:18 12:06 WBC RBC Hgb Hct MCHC RDW MCV MCH Lymph % (Auto) [place] % (Auto) [place] # Eos # Lymph # (Auto) [place] # (Auto) Eos # (Auto) Seg Neutrophils % Seg Neuts % (Manual) Baso # (Auto) Lymphocytes % (Manual) Monocytes % (Manual) Eosinophils % (Manual) Basophils % (Manual) Seg Neutrophils # Seg Neutrophils # Man Lymphocytes # (Manual) Monocytes # (Manual) Eosinophils # (Manual) Nucleated RBC % Basophils # (Manual) PT INR APTT Heparin Anti-Xa Level ABG pH POC ABG pO2 ABG pO2 ABG HCO3 ABG O2 Saturation ABG Base Excess POC ABG pCO2 ABG Hemoglobin ABG Oxyhemoglobin ABG Chloride ABG Glucose Oxyhemoglobin Sodium Potassium Chloride 97.9 L Carbon Dioxide BUN 31 H Creatinine Glucose 146 H POC Glucose 151 H 133 H Lactic Acid Calcium Phosphorus Magnesium AST ALT Lactate Dehydrogenase Total Bilirubin Direct Bilirubin CK-MB (CK-2) C-Reactive Protein NT-Pro-B Natriuret Pep Total Protein Albumin Arterial Blood Glucose Urine WBC (Auto) Urine Creatinine 01/24/20 01/25/20 01/25/20 17:36 00:08 04:25 WBC RBC 3.50 L Hgb 8.7 L Hct 27.9 L MCHC 31 L RDW 18.2 H MCV 80 L MCH 25 L Lymph % (Auto) [place] % (Auto) 8.5 H [place] # Eos # Lymph # (Auto) [place] # (Auto) Eos # (Auto) Seg Neutrophils % Seg Neuts % (Manual) Baso # (Auto) Lymphocytes % (Manual) Monocytes % (Manual) Eosinophils % (Manual) Basophils % (Manual) Seg Neutrophils # Seg Neutrophils # Man Lymphocytes # (Manual) Monocytes # (Manual) Eosinophils # (Manual) Nucleated RBC % Basophils # (Manual) PT INR APTT Heparin Anti-Xa Level ABG pH POC ABG pO2 ABG pO2 ABG HCO3 ABG O2 Saturation ABG Base Excess POC ABG pCO2 ABG Hemoglobin ABG Oxyhemoglobin ABG Chloride ABG Glucose Oxyhemoglobin Sodium Potassium Chloride Carbon Dioxide BUN Creatinine Glucose POC Glucose 133 H 129 H Lactic Acid Calcium Phosphorus Magnesium AST ALT Lactate Dehydrogenase Total Bilirubin Direct Bilirubin CK-MB (CK-2) C-Reactive Protein NT-Pro-B Natriuret Pep Total Protein Albumin Arterial Blood Glucose Urine WBC (Auto) Urine Creatinine 01/25/20 01/25/20 01/25/20 04:25 05:38 11:52 WBC RBC Hgb Hct MCHC RDW MCV MCH Lymph % (Auto) [place] % (Auto) [place] # Eos # Lymph # (Auto) [place] # (Auto) Eos # (Auto) Seg Neutrophils % Seg Neuts % (Manual) Baso # (Auto) Lymphocytes % (Manual) Monocytes % (Manual) Eosinophils % (Manual) Basophils % (Manual) Seg Neutrophils # Seg Neutrophils # Man Lymphocytes # (Manual) Monocytes # (Manual) Eosinophils # (Manual) Nucleated RBC % Basophils # (Manual) PT INR APTT Heparin Anti-Xa Level ABG pH POC ABG pO2 ABG pO2 ABG HCO3 ABG O2 Saturation ABG Base Excess POC ABG pCO2 ABG Hemoglobin ABG Oxyhemoglobin ABG Chloride ABG Glucose Oxyhemoglobin Sodium Potassium Chloride Carbon Dioxide BUN 30 H Creatinine Glucose 134 H POC Glucose 129 H 134 H Lactic Acid Calcium Phosphorus Magnesium AST ALT Lactate Dehydrogenase Total Bilirubin Direct Bilirubin CK-MB (CK-2) C-Reactive Protein NT-Pro-B Natriuret Pep Total Protein Albumin Arterial Blood Glucose Urine WBC (Auto) Urine Creatinine 01/25/20 01/25/20 01/26/20 17:13 21:02 00:59 WBC RBC Hgb Hct MCHC RDW MCV MCH Lymph % (Auto) [place] % (Auto) [place] # Eos # Lymph # (Auto) [place] # (Auto) Eos # (Auto) Seg Neutrophils % Seg Neuts % (Manual) Baso # (Auto) Lymphocytes % (Manual) Monocytes % (Manual) Eosinophils % (Manual) Basophils % (Manual) Seg Neutrophils # Seg Neutrophils # Man Lymphocytes # (Manual) Monocytes # (Manual) Eosinophils # (Manual) Nucleated RBC % Basophils # (Manual) PT INR APTT Heparin Anti-Xa Level ABG pH POC ABG pO2 ABG pO2 57.5 L ABG HCO3 31.7 H ABG O2 Saturation 90.3 L ABG Base Excess 6.6 H POC ABG pCO2 ABG Hemoglobin 13.0 L ABG Oxyhemoglobin ABG Chloride ABG Glucose Oxyhemoglobin 87.5 L Sodium Potassium Chloride Carbon Dioxide BUN Creatinine Glucose POC Glucose 124 H 196 H Lactic Acid Calcium Phosphorus Magnesium AST ALT Lactate Dehydrogenase Total Bilirubin Direct Bilirubin CK-MB (CK-2) C-Reactive Protein NT-Pro-B Natriuret Pep Total Protein Albumin Arterial Blood Glucose Urine WBC (Auto) Urine Creatinine 01/26/20 01/26/20 01/26/20 03:20 05:46 12:46 WBC RBC Hgb 9.2 L Hct 29.4 L MCHC RDW MCV MCH Lymph % (Auto) [place] % (Auto) [place] # Eos # Lymph # (Auto) [place] # (Auto) Eos # (Auto) Seg Neutrophils % Seg Neuts % (Manual) Baso # (Auto) Lymphocytes % (Manual) Monocytes % (Manual) Eosinophils % (Manual) Basophils % (Manual) Seg Neutrophils # Seg Neutrophils # Man Lymphocytes # (Manual) Monocytes # (Manual) Eosinophils # (Manual) Nucleated RBC % Basophils # (Manual) PT INR APTT Heparin Anti-Xa Level ABG pH POC ABG pO2 ABG pO2 ABG HCO3 ABG O2 Saturation ABG Base Excess POC ABG pCO2 ABG Hemoglobin ABG Oxyhemoglobin ABG Chloride ABG Glucose Oxyhemoglobin Sodium Potassium Chloride Carbon Dioxide BUN Creatinine Glucose POC Glucose 141 H 122 H Lactic Acid Calcium Phosphorus Magnesium AST ALT Lactate Dehydrogenase Total Bilirubin Direct Bilirubin CK-MB (CK-2) C-Reactive Protein NT-Pro-B Natriuret Pep Total Protein Albumin Arterial Blood Glucose Urine WBC (Auto) Urine Creatinine 01/26/20 01/26/20 01/27/20 18:03 23:55 04:47 WBC RBC Hgb Hct MCHC RDW MCV MCH Lymph % (Auto) [place] % (Auto) [place] # Eos # Lymph # (Auto) [place] # (Auto) Eos # (Auto) Seg Neutrophils % Seg Neuts % (Manual) Baso # (Auto) Lymphocytes % (Manual) Monocytes % (Manual) Eosinophils % (Manual) Basophils % (Manual) Seg Neutrophils # Seg Neutrophils # Man Lymphocytes # (Manual) Monocytes # (Manual) Eosinophils # (Manual) Nucleated RBC % Basophils # (Manual) PT INR APTT Heparin Anti-Xa Level ABG pH POC ABG pO2 ABG pO2 ABG HCO3 ABG O2 Saturation ABG Base Excess POC ABG pCO2 ABG Hemoglobin ABG Oxyhemoglobin ABG Chloride ABG Glucose Oxyhemoglobin Sodium Potassium Chloride Carbon Dioxide BUN 30 H Creatinine 0.7 L Glucose 135 H POC Glucose 142 H 159 H Lactic Acid Calcium Phosphorus Magnesium AST ALT Lactate Dehydrogenase Total Bilirubin Direct Bilirubin CK-MB (CK-2) C-Reactive Protein NT-Pro-B Natriuret Pep Total Protein Albumin Arterial Blood Glucose Urine WBC (Auto) Urine Creatinine 01/27/20 01/27/20 01/27/20 05:43 12:06 17:16 WBC RBC Hgb Hct MCHC RDW MCV MCH Lymph % (Auto) [place] % (Auto) [place] # Eos # Lymph # (Auto) [place] # (Auto) Eos # (Auto) Seg Neutrophils % Seg Neuts % (Manual) Baso # (Auto) Lymphocytes % (Manual) Monocytes % (Manual) Eosinophils % (Manual) Basophils % (Manual) Seg Neutrophils # Seg Neutrophils # Man Lymphocytes # (Manual) Monocytes # (Manual) Eosinophils # (Manual) Nucleated RBC % Basophils # (Manual) PT INR APTT Heparin Anti-Xa Level ABG pH POC ABG pO2 ABG pO2 ABG HCO3 ABG O2 Saturation ABG Base Excess POC ABG pCO2 ABG Hemoglobin ABG Oxyhemoglobin ABG Chloride ABG Glucose Oxyhemoglobin Sodium Potassium Chloride Carbon Dioxide BUN Creatinine Glucose POC Glucose 143 H 142 H 128 H Lactic Acid Calcium Phosphorus Magnesium AST ALT Lactate Dehydrogenase Total Bilirubin Direct Bilirubin CK-MB (CK-2) C-Reactive Protein NT-Pro-B Natriuret Pep Total Protein Albumin Arterial Blood Glucose Urine WBC (Auto) Urine Creatinine 01/27/20 01/28/20 01/28/20 23:55 04:37 05:55 WBC RBC Hgb 9.4 L Hct 29.9 L MCHC RDW MCV MCH Lymph % (Auto) [place] % (Auto) [place] # Eos # Lymph # (Auto) [place] # (Auto) Eos # (Auto) Seg Neutrophils % Seg Neuts % (Manual) Baso # (Auto) Lymphocytes % (Manual) Monocytes % (Manual) Eosinophils % (Manual) Basophils % (Manual) Seg Neutrophils # Seg Neutrophils # Man Lymphocytes # (Manual) Monocytes # (Manual) Eosinophils # (Manual) Nucleated RBC % Basophils # (Manual) PT INR APTT Heparin Anti-Xa Level ABG pH POC ABG pO2 ABG pO2 ABG HCO3 ABG O2 Saturation ABG Base Excess POC ABG pCO2 ABG Hemoglobin ABG Oxyhemoglobin ABG Chloride ABG Glucose Oxyhemoglobin Sodium Potassium Chloride Carbon Dioxide BUN Creatinine Glucose POC Glucose 166 H 169 H Lactic Acid Calcium Phosphorus Magnesium AST ALT Lactate Dehydrogenase Total Bilirubin Direct Bilirubin CK-MB (CK-2) C-Reactive Protein NT-Pro-B Natriuret Pep Total Protein Albumin Arterial Blood Glucose Urine WBC (Auto) Urine Creatinine 01/28/20 01/28/20 01/28/20 11:58 17:26 23:46 WBC RBC Hgb Hct MCHC RDW MCV MCH Lymph % (Auto) [place] % (Auto) [place] # Eos # Lymph # (Auto) [place] # (Auto) Eos # (Auto) Seg Neutrophils % Seg Neuts % (Manual) Baso # (Auto) Lymphocytes % (Manual) Monocytes % (Manual) Eosinophils % (Manual) Basophils % (Manual) Seg Neutrophils # Seg Neutrophils # Man Lymphocytes # (Manual) Monocytes # (Manual) Eosinophils # (Manual) Nucleated RBC % Basophils # (Manual) PT INR APTT Heparin Anti-Xa Level ABG pH POC ABG pO2 ABG pO2 ABG HCO3 ABG O2 Saturation ABG Base Excess POC ABG pCO2 ABG Hemoglobin ABG Oxyhemoglobin ABG Chloride ABG Glucose Oxyhemoglobin Sodium Potassium Chloride Carbon Dioxide BUN Creatinine Glucose POC Glucose 130 H 126 H 150 H Lactic Acid Calcium Phosphorus Magnesium AST ALT Lactate Dehydrogenase Total Bilirubin Direct Bilirubin CK-MB (CK-2) C-Reactive Protein NT-Pro-B Natriuret Pep Total Protein Albumin Arterial Blood Glucose Urine WBC (Auto) Urine Creatinine 01/29/20 01/29/20 01/29/20 04:55 06:00 12:28 WBC RBC Hgb Hct MCHC RDW MCV MCH Lymph % (Auto) [place] % (Auto) [place] # Eos # Lymph # (Auto) [place] # (Auto) Eos # (Auto) Seg Neutrophils % Seg Neuts % (Manual) Baso # (Auto) Lymphocytes % (Manual) Monocytes % (Manual) Eosinophils % (Manual) Basophils % (Manual) Seg Neutrophils # Seg Neutrophils # Man Lymphocytes # (Manual) Monocytes # (Manual) Eosinophils # (Manual) Nucleated RBC % Basophils # (Manual) PT INR APTT Heparin Anti-Xa Level ABG pH POC ABG pO2 ABG pO2 ABG HCO3 ABG O2 Saturation ABG Base Excess POC ABG pCO2 ABG Hemoglobin ABG Oxyhemoglobin ABG Chloride ABG Glucose Oxyhemoglobin Sodium Potassium Chloride Carbon Dioxide 34 H BUN Creatinine 0.6 L Glucose 152 H POC Glucose 157 H 156 H Lactic Acid Calcium Phosphorus Magnesium AST ALT Lactate Dehydrogenase Total Bilirubin Direct Bilirubin CK-MB (CK-2) C-Reactive Protein NT-Pro-B Natriuret Pep Total Protein Albumin Arterial Blood Glucose Urine WBC (Auto) Urine Creatinine 01/29/20 01/30/20 01/30/20 19:06 00:29 05:39 WBC RBC Hgb Hct MCHC RDW MCV MCH Lymph % (Auto) [place] % (Auto) [place] # Eos # Lymph # (Auto) [place] # (Auto) Eos # (Auto) Seg Neutrophils % Seg Neuts % (Manual) Baso # (Auto) Lymphocytes % (Manual) Monocytes % (Manual) Eosinophils % (Manual) Basophils % (Manual) Seg Neutrophils # Seg Neutrophils # Man Lymphocytes # (Manual) Monocytes # (Manual) Eosinophils # (Manual) Nucleated RBC % Basophils # (Manual) PT INR APTT Heparin Anti-Xa Level ABG pH POC ABG pO2 ABG pO2 ABG HCO3 ABG O2 Saturation ABG Base Excess POC ABG pCO2 ABG Hemoglobin ABG Oxyhemoglobin ABG Chloride ABG Glucose Oxyhemoglobin Sodium Potassium Chloride Carbon Dioxide BUN Creatinine Glucose POC Glucose 152 H 132 H 159 H Lactic Acid Calcium Phosphorus Magnesium AST ALT Lactate Dehydrogenase Total Bilirubin Direct Bilirubin CK-MB (CK-2) C-Reactive Protein NT-Pro-B Natriuret Pep Total Protein Albumin Arterial Blood Glucose Urine WBC (Auto) Urine Creatinine 01/30/20 01/30/20 01/30/20 12:27 17:42 23:28 WBC RBC Hgb Hct MCHC RDW MCV MCH Lymph % (Auto) [place] % (Auto) [place] # Eos # Lymph # (Auto) [place] # (Auto) Eos # (Auto) Seg Neutrophils % Seg Neuts % (Manual) Baso # (Auto) Lymphocytes % (Manual) Monocytes % (Manual) Eosinophils % (Manual) Basophils % (Manual) Seg Neutrophils # Seg Neutrophils # Man Lymphocytes # (Manual) Monocytes # (Manual) Eosinophils # (Manual) Nucleated RBC % Basophils # (Manual) PT INR APTT Heparin Anti-Xa Level ABG pH POC ABG pO2 ABG pO2 ABG HCO3 ABG O2 Saturation ABG Base Excess POC ABG pCO2 ABG Hemoglobin ABG Oxyhemoglobin ABG Chloride ABG Glucose Oxyhemoglobin Sodium Potassium Chloride Carbon Dioxide BUN Creatinine Glucose POC Glucose 151 H 144 H 164 H Lactic Acid Calcium Phosphorus Magnesium AST ALT Lactate Dehydrogenase Total Bilirubin Direct Bilirubin CK-MB (CK-2) C-Reactive Protein NT-Pro-B Natriuret Pep Total Protein Albumin Arterial Blood Glucose Urine WBC (Auto) Urine Creatinine 01/31/20 01/31/20 01/31/20 05:51 11:51 18:06 WBC RBC Hgb Hct MCHC RDW MCV MCH Lymph % (Auto) [place] % (Auto) [place] # Eos # Lymph # (Auto) [place] # (Auto) Eos # (Auto) Seg Neutrophils % Seg Neuts % (Manual) Baso # (Auto) Lymphocytes % (Manual) Monocytes % (Manual) Eosinophils % (Manual) Basophils % (Manual) Seg Neutrophils # Seg Neutrophils # Man Lymphocytes # (Manual) Monocytes # (Manual) Eosinophils # (Manual) Nucleated RBC % Basophils # (Manual) PT INR APTT Heparin Anti-Xa Level ABG pH POC ABG pO2 ABG pO2 ABG HCO3 ABG O2 Saturation ABG Base Excess POC ABG pCO2 ABG Hemoglobin ABG Oxyhemoglobin ABG Chloride ABG Glucose Oxyhemoglobin Sodium Potassium Chloride Carbon Dioxide BUN Creatinine Glucose POC Glucose 131 H 167 H 210 H Lactic Acid Calcium Phosphorus Magnesium AST ALT Lactate Dehydrogenase Total Bilirubin Direct Bilirubin CK-MB (CK-2) C-Reactive Protein NT-Pro-B Natriuret Pep Total Protein Albumin Arterial Blood Glucose Urine WBC (Auto) Urine Creatinine 01/31/20 01/31/20 02/01/20 19:24 Unknown 00:34 WBC RBC Hgb Hct MCHC RDW MCV MCH Lymph % (Auto) [place] % (Auto) [place] # Eos # Lymph # (Auto) [place] # (Auto) Eos # (Auto) Seg Neutrophils % Seg Neuts % (Manual) Baso # (Auto) Lymphocytes % (Manual) Monocytes % (Manual) Eosinophils % (Manual) Basophils % (Manual) Seg Neutrophils # Seg Neutrophils # Man Lymphocytes # (Manual) Monocytes # (Manual) Eosinophils # (Manual) Nucleated RBC % Basophils # (Manual) PT INR APTT Heparin Anti-Xa Level ABG pH POC ABG pO2 ABG pO2 ABG HCO3 ABG O2 Saturation ABG Base Excess POC ABG pCO2 ABG Hemoglobin ABG Oxyhemoglobin ABG Chloride ABG Glucose Oxyhemoglobin Sodium Potassium Chloride 95.3 L Carbon Dioxide 33 H BUN 36 H Creatinine Glucose 187 H POC Glucose 116 H Lactic Acid Calcium Phosphorus Magnesium AST ALT Lactate Dehydrogenase Total Bilirubin Direct Bilirubin CK-MB (CK-2) C-Reactive Protein NT-Pro-B Natriuret Pep Total Protein Albumin Arterial Blood Glucose Urine WBC (Auto) Urine Creatinine 57.4 H 02/01/20 02/01/20 02/01/20 05:24 10:40 12:29 WBC RBC Hgb Hct MCHC RDW MCV MCH Lymph % (Auto) [place] % (Auto) [place] # Eos # Lymph # (Auto) [place] # (Auto) Eos # (Auto) Seg Neutrophils % Seg Neuts % (Manual) Baso # (Auto) Lymphocytes % (Manual) Monocytes % (Manual) Eosinophils % (Manual) Basophils % (Manual) Seg Neutrophils # Seg Neutrophils # Man Lymphocytes # (Manual) Monocytes # (Manual) Eosinophils # (Manual) Nucleated RBC % Basophils # (Manual) PT INR APTT Heparin Anti-Xa Level ABG pH POC ABG pO2 ABG pO2 ABG HCO3 ABG O2 Saturation ABG Base Excess POC ABG pCO2 ABG Hemoglobin ABG Oxyhemoglobin ABG Chloride ABG Glucose Oxyhemoglobin Sodium Potassium Chloride Carbon Dioxide BUN Creatinine Glucose POC Glucose 142 H 165 H 151 H Lactic Acid Calcium Phosphorus Magnesium AST ALT Lactate Dehydrogenase Total Bilirubin Direct Bilirubin CK-MB (CK-2) C-Reactive Protein NT-Pro-B Natriuret Pep Total Protein Albumin Arterial Blood Glucose Urine WBC (Auto) Urine Creatinine 02/01/20 02/01/20 02/02/20 17:16 23:23 06:36 WBC RBC Hgb Hct MCHC RDW MCV MCH Lymph % (Auto) [place] % (Auto) [place] # Eos # Lymph # (Auto) [place] # (Auto) Eos # (Auto) Seg Neutrophils % Seg Neuts % (Manual) Baso # (Auto) Lymphocytes % (Manual) Monocytes % (Manual) Eosinophils % (Manual) Basophils % (Manual) Seg Neutrophils # Seg Neutrophils # Man Lymphocytes # (Manual) Monocytes # (Manual) Eosinophils # (Manual) Nucleated RBC % Basophils # (Manual) PT INR APTT Heparin Anti-Xa Level ABG pH POC ABG pO2 ABG pO2 ABG HCO3 ABG O2 Saturation ABG Base Excess POC ABG pCO2 ABG Hemoglobin ABG Oxyhemoglobin ABG Chloride ABG Glucose Oxyhemoglobin Sodium Potassium Chloride Carbon Dioxide BUN Creatinine Glucose POC Glucose 137 H 145 H 181 H Lactic Acid Calcium Phosphorus Magnesium AST ALT Lactate Dehydrogenase Total Bilirubin Direct Bilirubin CK-MB (CK-2) C-Reactive Protein NT-Pro-B Natriuret Pep Total Protein Albumin Arterial Blood Glucose Urine WBC (Auto) Urine Creatinine 02/02/20 02/02/20 02/02/20 10:01 12:05 17:54 WBC RBC Hgb Hct MCHC RDW MCV MCH Lymph % (Auto) [place] % (Auto) [place] # Eos # Lymph # (Auto) [place] # (Auto) Eos # (Auto) Seg Neutrophils % Seg Neuts % (Manual) Baso # (Auto) Lymphocytes % (Manual) Monocytes % (Manual) Eosinophils % (Manual) Basophils % (Manual) Seg Neutrophils # Seg Neutrophils # Man Lymphocytes # (Manual) Monocytes # (Manual) Eosinophils # (Manual) Nucleated RBC % Basophils # (Manual) PT INR APTT Heparin Anti-Xa Level ABG pH POC ABG pO2 ABG pO2 ABG HCO3 ABG O2 Saturation ABG Base Excess POC ABG pCO2 ABG Hemoglobin ABG Oxyhemoglobin ABG Chloride ABG Glucose Oxyhemoglobin Sodium Potassium Chloride 95.3 L Carbon Dioxide BUN 44 H Creatinine Glucose 234 H POC Glucose 184 H 127 H Lactic Acid Calcium Phosphorus Magnesium AST 363 H ALT 457 H Lactate Dehydrogenase Total Bilirubin Direct Bilirubin CK-MB (CK-2) C-Reactive Protein NT-Pro-B Natriuret Pep Total Protein Albumin 3.0 L Arterial Blood Glucose Urine WBC (Auto) Urine Creatinine 02/02/20 02/03/20 02/03/20 23:47 05:32 07:04 WBC 13.0 H RBC Hgb 9.5 L Hct 30.8 L MCHC 31 L RDW 19.6 H MCV 81 L MCH 25 L Lymph % (Auto) [place] % (Auto) 9.4 H [place] # Eos # Lymph # (Auto) [place] # (Auto) 1.2 H Eos # (Auto) Seg Neutrophils % 72.3 H Seg Neuts % (Manual) Baso # (Auto) Lymphocytes % (Manual) Monocytes % (Manual) Eosinophils % (Manual) Basophils % (Manual) Seg Neutrophils # 9.4 H Seg Neutrophils # Man Lymphocytes # (Manual) Monocytes # (Manual) Eosinophils # (Manual) Nucleated RBC % Basophils # (Manual) PT INR APTT Heparin Anti-Xa Level ABG pH POC ABG pO2 ABG pO2 ABG HCO3 ABG O2 Saturation ABG Base Excess POC ABG pCO2 ABG Hemoglobin ABG Oxyhemoglobin ABG Chloride ABG Glucose Oxyhemoglobin Sodium Potassium Chloride Carbon Dioxide BUN Creatinine Glucose POC Glucose 124 H 129 H Lactic Acid Calcium Phosphorus Magnesium AST ALT Lactate Dehydrogenase Total Bilirubin Direct Bilirubin CK-MB (CK-2) C-Reactive Protein NT-Pro-B Natriuret Pep Total Protein Albumin Arterial Blood Glucose Urine WBC (Auto) Urine Creatinine 02/03/20 02/03/20 02/03/20 07:04 11:32 12:49 WBC RBC Hgb Hct MCHC RDW MCV MCH Lymph % (Auto) [place] % (Auto) [place] # Eos # Lymph # (Auto) [place] # (Auto) Eos # (Auto) Seg Neutrophils % Seg Neuts % (Manual) Baso # (Auto) Lymphocytes % (Manual) Monocytes % (Manual) Eosinophils % (Manual) Basophils % (Manual) Seg Neutrophils # Seg Neutrophils # Man Lymphocytes # (Manual) Monocytes # (Manual) Eosinophils # (Manual) Nucleated RBC % Basophils # (Manual) PT INR APTT Heparin Anti-Xa Level ABG pH POC ABG pO2 ABG pO2 ABG HCO3 ABG O2 Saturation ABG Base Excess POC ABG pCO2 ABG Hemoglobin ABG Oxyhemoglobin ABG Chloride ABG Glucose Oxyhemoglobin Sodium Potassium Chloride 97.9 L Carbon Dioxide 33 H BUN 39 H Creatinine Glucose 119 H POC Glucose 138 H Lactic Acid Calcium Phosphorus Magnesium 2.60 H AST ALT Lactate Dehydrogenase Total Bilirubin Direct Bilirubin CK-MB (CK-2) C-Reactive Protein NT-Pro-B Natriuret Pep Total Protein Albumin Arterial Blood Glucose Urine WBC (Auto) Urine Creatinine 02/03/20 02/04/20 02/04/20 18:28 16:24 16:24 WBC RBC 3.38 L Hgb 8.6 L Hct 26.9 L MCHC RDW 19.5 H MCV 80 L MCH 26 L Lymph % (Auto) [place] % (Auto) [place] # Eos # Lymph # (Auto) [place] # (Auto) Eos # (Auto) Seg Neutrophils % Seg Neuts % (Manual) Baso # (Auto) Lymphocytes % (Manual) Monocytes % (Manual) Eosinophils % (Manual) Basophils % (Manual) Seg Neutrophils # Seg Neutrophils # Man Lymphocytes # (Manual) Monocytes # (Manual) Eosinophils # (Manual) Nucleated RBC % Basophils # (Manual) PT INR APTT Heparin Anti-Xa Level ABG pH POC ABG pO2 ABG pO2 ABG HCO3 ABG O2 Saturation ABG Base Excess POC ABG pCO2 ABG Hemoglobin ABG Oxyhemoglobin ABG Chloride ABG Glucose Oxyhemoglobin Sodium Potassium 3.4 L Chloride Carbon Dioxide 31 H BUN 37 H Creatinine Glucose 70 L POC Glucose 118 H Lactic Acid Calcium Phosphorus Magnesium AST 169 H ALT 394 H Lactate Dehydrogenase Total Bilirubin 1.50 H Direct Bilirubin CK-MB (CK-2) C-Reactive Protein NT-Pro-B Natriuret Pep Total Protein Albumin 2.9 L Arterial Blood Glucose Urine WBC (Auto) Urine Creatinine 02/05/20 02/05/20 02/05/20 00:41 06:37 17:14 WBC RBC Hgb Hct MCHC RDW MCV MCH Lymph % (Auto) [place] % (Auto) [place] # Eos # Lymph # (Auto) [place] # (Auto) Eos # (Auto) Seg Neutrophils % Seg Neuts % (Manual) Baso # (Auto) Lymphocytes % (Manual) Monocytes % (Manual) Eosinophils % (Manual) Basophils % (Manual) Seg Neutrophils # Seg Neutrophils # Man Lymphocytes # (Manual) Monocytes # (Manual) Eosinophils # (Manual) Nucleated RBC % Basophils # (Manual) PT INR APTT Heparin Anti-Xa Level ABG pH POC ABG pO2 ABG pO2 ABG HCO3 ABG O2 Saturation ABG Base Excess POC ABG pCO2 ABG Hemoglobin ABG Oxyhemoglobin ABG Chloride ABG Glucose Oxyhemoglobin Sodium Potassium 3.1 L Chloride Carbon Dioxide 35 H BUN 32 H Creatinine 0.7 L Glucose POC Glucose 69 L 127 H Lactic Acid Calcium Phosphorus Magnesium AST 134 H ALT 352 H Lactate Dehydrogenase Total Bilirubin 1.60 H Direct Bilirubin CK-MB (CK-2) C-Reactive Protein NT-Pro-B Natriuret Pep Total Protein Albumin 2.9 L Arterial Blood Glucose Urine WBC (Auto) Urine Creatinine 02/05/20 02/06/20 02/06/20 23:43 05:32 08:01 WBC RBC Hgb Hct MCHC RDW MCV MCH Lymph % (Auto) [place] % (Auto) [place] # Eos # Lymph # (Auto) [place] # (Auto) Eos # (Auto) Seg Neutrophils % Seg Neuts % (Manual) Baso # (Auto) Lymphocytes % (Manual) Monocytes % (Manual) Eosinophils % (Manual) Basophils % (Manual) Seg Neutrophils # Seg Neutrophils # Man Lymphocytes # (Manual) Monocytes # (Manual) Eosinophils # (Manual) Nucleated RBC % Basophils # (Manual) PT INR APTT Heparin Anti-Xa Level ABG pH POC ABG pO2 ABG pO2 ABG HCO3 ABG O2 Saturation ABG Base Excess POC ABG pCO2 ABG Hemoglobin ABG Oxyhemoglobin ABG Chloride ABG Glucose Oxyhemoglobin Sodium Potassium Chloride Carbon Dioxide BUN 40 H Creatinine Glucose 132 H POC Glucose 129 H 131 H Lactic Acid Calcium Phosphorus Magnesium AST ALT Lactate Dehydrogenase Total Bilirubin Direct Bilirubin CK-MB (CK-2) C-Reactive Protein NT-Pro-B Natriuret Pep Total Protein Albumin Arterial Blood Glucose Urine WBC (Auto) Urine Creatinine 02/06/20 02/06/20 02/06/20 11:51 16:28 17:32 WBC RBC Hgb Hct MCHC RDW MCV MCH Lymph % (Auto) [place] % (Auto) [place] # Eos # Lymph # (Auto) [place] # (Auto) Eos # (Auto) Seg Neutrophils % Seg Neuts % (Manual) Baso # (Auto) Lymphocytes % (Manual) Monocytes % (Manual) Eosinophils % (Manual) Basophils % (Manual) Seg Neutrophils # Seg Neutrophils # Man Lymphocytes # (Manual) Monocytes # (Manual) Eosinophils # (Manual) Nucleated RBC % Basophils # (Manual) PT INR APTT Heparin Anti-Xa Level ABG pH POC ABG pO2 ABG pO2 ABG HCO3 ABG O2 Saturation ABG Base Excess POC ABG pCO2 ABG Hemoglobin ABG Oxyhemoglobin ABG Chloride ABG Glucose Oxyhemoglobin Sodium Potassium Chloride Carbon Dioxide BUN Creatinine Glucose POC Glucose 167 H 129 H Lactic Acid Calcium Phosphorus Magnesium AST 824 H ALT 948 H Lactate Dehydrogenase Total Bilirubin 1.70 H Direct Bilirubin 1.2 H CK-MB (CK-2) C-Reactive Protein NT-Pro-B Natriuret Pep Total Protein Albumin 2.9 L Arterial Blood Glucose Urine WBC (Auto) Urine Creatinine 02/07/20 02/07/20 02/07/20 00:11 04:57 04:57 WBC RBC Hgb 9.2 L Hct 29.7 L MCHC 31 L RDW 20.2 H MCV 80 L MCH 25 L Lymph % (Auto) [place] % (Auto) [place] # Eos # Lymph # (Auto) [place] # (Auto) Eos # (Auto) Seg Neutrophils % Seg Neuts % (Manual) Baso # (Auto) Lymphocytes % (Manual) Monocytes % (Manual) Eosinophils % (Manual) Basophils % (Manual) Seg Neutrophils # Seg Neutrophils # Man Lymphocytes # (Manual) Monocytes # (Manual) Eosinophils # (Manual) Nucleated RBC % Basophils # (Manual) PT INR APTT Heparin Anti-Xa Level ABG pH POC ABG pO2 ABG pO2 ABG HCO3 ABG O2 Saturation ABG Base Excess POC ABG pCO2 ABG Hemoglobin ABG Oxyhemoglobin ABG Chloride ABG Glucose Oxyhemoglobin Sodium Potassium 3.4 L D Chloride Carbon Dioxide 32 H BUN 39 H Creatinine Glucose 106 H POC Glucose 121 H Lactic Acid Calcium Phosphorus Magnesium AST ALT Lactate Dehydrogenase Total Bilirubin Direct Bilirubin CK-MB (CK-2) C-Reactive Protein NT-Pro-B Natriuret Pep Total Protein Albumin Arterial Blood Glucose Urine WBC (Auto) Urine Creatinine 02/07/20 02/07/20 02/07/20 15:03 15:03 17:11 WBC RBC Hgb Hct MCHC RDW MCV MCH Lymph % (Auto) [place] % (Auto) [place] # Eos # Lymph # (Auto) [place] # (Auto) Eos # (Auto) Seg Neutrophils % Seg Neuts % (Manual) Baso # (Auto) Lymphocytes % (Manual) Monocytes % (Manual) Eosinophils % (Manual) Basophils % (Manual) Seg Neutrophils # Seg Neutrophils # Man Lymphocytes # (Manual) Monocytes # (Manual) Eosinophils # (Manual) Nucleated RBC % Basophils # (Manual) PT 27.0 H INR 2.46 H APTT Heparin Anti-Xa Level ABG pH POC ABG pO2 ABG pO2 ABG HCO3 ABG O2 Saturation ABG Base Excess POC ABG pCO2 ABG Hemoglobin ABG Oxyhemoglobin ABG Chloride ABG Glucose Oxyhemoglobin Sodium Potassium Chloride Carbon Dioxide BUN Creatinine Glucose POC Glucose 109 H Lactic Acid Calcium Phosphorus Magnesium AST 424 H ALT 796 H Lactate Dehydrogenase Total Bilirubin 1.60 H Direct Bilirubin 1.2 H CK-MB (CK-2) C-Reactive Protein NT-Pro-B Natriuret Pep Total Protein Albumin 2.9 L Arterial Blood Glucose Urine WBC (Auto) Urine Creatinine 02/08/20 02/08/20 02/08/20 12:14 17:44 19:00 WBC RBC Hgb Hct MCHC RDW MCV MCH Lymph % (Auto) [place] % (Auto) [place] # Eos # Lymph # (Auto) [place] # (Auto) Eos # (Auto) Seg Neutrophils % Seg Neuts % (Manual) Baso # (Auto) Lymphocytes % (Manual) Monocytes % (Manual) Eosinophils % (Manual) Basophils % (Manual) Seg Neutrophils # Seg Neutrophils # Man Lymphocytes # (Manual) Monocytes # (Manual) Eosinophils # (Manual) Nucleated RBC % Basophils # (Manual) PT INR APTT Heparin Anti-Xa Level ABG pH POC ABG pO2 ABG pO2 ABG HCO3 ABG O2 Saturation ABG Base Excess POC ABG pCO2 ABG Hemoglobin ABG Oxyhemoglobin ABG Chloride ABG Glucose Oxyhemoglobin Sodium Potassium Chloride Carbon Dioxide BUN Creatinine Glucose POC Glucose 111 H 107 H Lactic Acid Calcium Phosphorus Magnesium AST 309 H ALT 650 H Lactate Dehydrogenase Total Bilirubin 1.30 H Direct Bilirubin 0.9 H CK-MB (CK-2) C-Reactive Protein NT-Pro-B Natriuret Pep Total Protein 6.2 L Albumin 2.7 L Arterial Blood Glucose Urine WBC (Auto) Urine Creatinine 02/09/20 02/09/20 02/09/20 05:41 12:28 18:07 WBC RBC Hgb Hct MCHC RDW MCV MCH Lymph % (Auto) [place] % (Auto) [place] # Eos # Lymph # (Auto) [place] # (Auto) Eos # (Auto) Seg Neutrophils % Seg Neuts % (Manual) Baso # (Auto) Lymphocytes % (Manual) Monocytes % (Manual) Eosinophils % (Manual) Basophils % (Manual) Seg Neutrophils # Seg Neutrophils # Man Lymphocytes # (Manual) Monocytes # (Manual) Eosinophils # (Manual) Nucleated RBC % Basophils # (Manual) PT INR APTT Heparin Anti-Xa Level ABG pH POC ABG pO2 ABG pO2 ABG HCO3 ABG O2 Saturation ABG Base Excess POC ABG pCO2 ABG Hemoglobin ABG Oxyhemoglobin ABG Chloride ABG Glucose Oxyhemoglobin Sodium Potassium Chloride Carbon Dioxide BUN Creatinine Glucose POC Glucose 113 H 140 H 143 H Lactic Acid Calcium Phosphorus Magnesium AST ALT Lactate Dehydrogenase Total Bilirubin Direct Bilirubin CK-MB (CK-2) C-Reactive Protein NT-Pro-B Natriuret Pep Total Protein Albumin Arterial Blood Glucose Urine WBC (Auto) Urine Creatinine 02/09/20 02/09/20 02/10/20 21:40 23:45 06:00 WBC RBC Hgb Hct MCHC RDW MCV MCH Lymph % (Auto) [place] % (Auto) [place] # Eos # Lymph # (Auto) [place] # (Auto) Eos # (Auto) Seg Neutrophils % Seg Neuts % (Manual) Baso # (Auto) Lymphocytes % (Manual) Monocytes % (Manual) Eosinophils % (Manual) Basophils % (Manual) Seg Neutrophils # Seg Neutrophils # Man Lymphocytes # (Manual) Monocytes # (Manual) Eosinophils # (Manual) Nucleated RBC % Basophils # (Manual) PT INR APTT Heparin Anti-Xa Level ABG pH POC ABG pO2 ABG pO2 59.8 L ABG HCO3 33.3 H ABG O2 Saturation 88.9 L ABG Base Excess 7.4 H POC ABG pCO2 ABG Hemoglobin 10.4 L ABG Oxyhemoglobin ABG Chloride ABG Glucose Oxyhemoglobin 86.3 L Sodium Potassium Chloride Carbon Dioxide BUN Creatinine Glucose POC Glucose 127 H 114 H Lactic Acid Calcium Phosphorus Magnesium AST ALT Lactate Dehydrogenase Total Bilirubin Direct Bilirubin CK-MB (CK-2) C-Reactive Protein NT-Pro-B Natriuret Pep Total Protein Albumin Arterial Blood Glucose Urine WBC (Auto) Urine Creatinine 02/10/20 02/10/20 02/10/20 07:40 07:40 13:38 WBC 11.5 H RBC Hgb 10.6 L Hct 34.7 L MCHC 31 L RDW 19.8 H MCV 79 L MCH 24 L Lymph % (Auto) [place] % (Auto) 9.2 H [place] # Eos # Lymph # (Auto) [place] # (Auto) 1.1 H Eos # (Auto) Seg Neutrophils % Seg Neuts % (Manual) Baso # (Auto) Lymphocytes % (Manual) Monocytes % (Manual) Eosinophils % (Manual) Basophils % (Manual) Seg Neutrophils # Seg Neutrophils # Man Lymphocytes # (Manual) Monocytes # (Manual) Eosinophils # (Manual) Nucleated RBC % Basophils # (Manual) PT INR APTT Heparin Anti-Xa Level ABG pH POC ABG pO2 ABG pO2 ABG HCO3 ABG O2 Saturation ABG Base Excess POC ABG pCO2 ABG Hemoglobin ABG Oxyhemoglobin ABG Chloride ABG Glucose Oxyhemoglobin Sodium 151 H Potassium Chloride 107.2 H Carbon Dioxide 36 H BUN 25 H Creatinine 0.7 L Glucose 114 H POC Glucose 116 H Lactic Acid Calcium Phosphorus Magnesium 2.40 H AST ALT Lactate Dehydrogenase Total Bilirubin Direct Bilirubin CK-MB (CK-2) C-Reactive Protein NT-Pro-B Natriuret Pep Total Protein Albumin Arterial Blood Glucose Urine WBC (Auto) Urine Creatinine 02/10/20 02/11/20 02/11/20 17:44 05:47 12:21 WBC RBC Hgb Hct MCHC RDW MCV MCH Lymph % (Auto) [place] % (Auto) [place] # Eos # Lymph # (Auto) [place] # (Auto) Eos # (Auto) Seg Neutrophils % Seg Neuts % (Manual) Baso # (Auto) Lymphocytes % (Manual) Monocytes % (Manual) Eosinophils % (Manual) Basophils % (Manual) Seg Neutrophils # Seg Neutrophils # Man Lymphocytes # (Manual) Monocytes # (Manual) Eosinophils # (Manual) Nucleated RBC % Basophils # (Manual) PT INR APTT Heparin Anti-Xa Level ABG pH POC ABG pO2 ABG pO2 ABG HCO3 ABG O2 Saturation ABG Base Excess POC ABG pCO2 ABG Hemoglobin ABG Oxyhemoglobin ABG Chloride ABG Glucose Oxyhemoglobin Sodium Potassium Chloride Carbon Dioxide BUN Creatinine Glucose POC Glucose 139 H 173 H 143 H Lactic Acid Calcium Phosphorus Magnesium AST ALT Lactate Dehydrogenase Total Bilirubin Direct Bilirubin CK-MB (CK-2) C-Reactive Protein NT-Pro-B Natriuret Pep Total Protein Albumin Arterial Blood Glucose Urine WBC (Auto) Urine Creatinine 02/11/20 02/11/20 02/12/20 13:43 14:11 00:15 WBC RBC Hgb Hct MCHC RDW MCV MCH Lymph % (Auto) [place] % (Auto) [place] # Eos # Lymph # (Auto) [place] # (Auto) Eos # (Auto) Seg Neutrophils % Seg Neuts % (Manual) Baso # (Auto) Lymphocytes % (Manual) Monocytes % (Manual) Eosinophils % (Manual) Basophils % (Manual) Seg Neutrophils # Seg Neutrophils # Man Lymphocytes # (Manual) Monocytes # (Manual) Eosinophils # (Manual) Nucleated RBC % Basophils # (Manual) PT INR APTT Heparin Anti-Xa Level ABG pH 7.502 H POC ABG pO2 77.7 L ABG pO2 ABG HCO3 ABG O2 Saturation ABG Base Excess POC ABG pCO2 ABG Hemoglobin 11.1 L ABG Oxyhemoglobin ABG Chloride 108.0 H ABG Glucose 151 H Oxyhemoglobin Sodium Potassium Chloride Carbon Dioxide BUN Creatinine Glucose POC Glucose 130 H 125 H Lactic Acid Calcium Phosphorus Magnesium AST ALT Lactate Dehydrogenase Total Bilirubin Direct Bilirubin CK-MB (CK-2) C-Reactive Protein NT-Pro-B Natriuret Pep Total Protein Albumin Arterial Blood Glucose 151 H Urine WBC (Auto) Urine Creatinine 02/12/20 02/12/20 02/12/20 04:56 04:56 17:42 WBC RBC Hgb 9.9 L Hct 31.8 L MCHC 31 L RDW 19.4 H MCV 79 L MCH 25 L Lymph % (Auto) [place] % (Auto) 10.3 H [place] # Eos # Lymph # (Auto) [place] # (Auto) 1.0 H Eos # (Auto) Seg Neutrophils % Seg Neuts % (Manual) Baso # (Auto) Lymphocytes % (Manual) Monocytes % (Manual) Eosinophils % (Manual) Basophils % (Manual) Seg Neutrophils # Seg Neutrophils # Man Lymphocytes # (Manual) Monocytes # (Manual) Eosinophils # (Manual) Nucleated RBC % Basophils # (Manual) PT INR APTT Heparin Anti-Xa Level ABG pH POC ABG pO2 ABG pO2 ABG HCO3 ABG O2 Saturation ABG Base Excess POC ABG pCO2 ABG Hemoglobin ABG Oxyhemoglobin ABG Chloride ABG Glucose Oxyhemoglobin Sodium 149 H Potassium Chloride 108.6 H Carbon Dioxide BUN 28 H Creatinine 0.7 L Glucose 108 H POC Glucose 113 H Lactic Acid Calcium Phosphorus Magnesium AST ALT Lactate Dehydrogenase Total Bilirubin Direct Bilirubin CK-MB (CK-2) C-Reactive Protein NT-Pro-B Natriuret Pep Total Protein Albumin Arterial Blood Glucose Urine WBC (Auto) Urine Creatinine 02/13/20 02/13/20 02/13/20 00:39 05:36 12:25 WBC RBC Hgb Hct MCHC RDW MCV MCH Lymph % (Auto) [place] % (Auto) [place] # Eos # Lymph # (Auto) [place] # (Auto) Eos # (Auto) Seg Neutrophils % Seg Neuts % (Manual) Baso # (Auto) Lymphocytes % (Manual) Monocytes % (Manual) Eosinophils % (Manual) Basophils % (Manual) Seg Neutrophils # Seg Neutrophils # Man Lymphocytes # (Manual) Monocytes # (Manual) Eosinophils # (Manual) Nucleated RBC % Basophils # (Manual) PT INR APTT Heparin Anti-Xa Level ABG pH POC ABG pO2 ABG pO2 ABG HCO3 ABG O2 Saturation ABG Base Excess POC ABG pCO2 ABG Hemoglobin ABG Oxyhemoglobin ABG Chloride ABG Glucose Oxyhemoglobin Sodium Potassium Chloride Carbon Dioxide BUN Creatinine Glucose POC Glucose 129 H 126 H 129 H Lactic Acid Calcium Phosphorus Magnesium AST ALT Lactate Dehydrogenase Total Bilirubin Direct Bilirubin CK-MB (CK-2) C-Reactive Protein NT-Pro-B Natriuret Pep Total Protein Albumin Arterial Blood Glucose Urine WBC (Auto) Urine Creatinine 02/13/20 02/14/20 02/14/20 17:59 00:15 05:41 WBC RBC Hgb Hct MCHC RDW MCV MCH Lymph % (Auto) [place] % (Auto) [place] # Eos # Lymph # (Auto) [place] # (Auto) Eos # (Auto) Seg Neutrophils % Seg Neuts % (Manual) Baso # (Auto) Lymphocytes % (Manual) Monocytes % (Manual) Eosinophils % (Manual) Basophils % (Manual) Seg Neutrophils # Seg Neutrophils # Man Lymphocytes # (Manual) Monocytes # (Manual) Eosinophils # (Manual) Nucleated RBC % Basophils # (Manual) PT INR APTT Heparin Anti-Xa Level ABG pH POC ABG pO2 ABG pO2 ABG HCO3 ABG O2 Saturation ABG Base Excess POC ABG pCO2 ABG Hemoglobin ABG Oxyhemoglobin ABG Chloride ABG Glucose Oxyhemoglobin Sodium Potassium Chloride Carbon Dioxide BUN Creatinine Glucose POC Glucose 153 H 130 H 130 H Lactic Acid Calcium Phosphorus Magnesium AST ALT Lactate Dehydrogenase Total Bilirubin Direct Bilirubin CK-MB (CK-2) C-Reactive Protein NT-Pro-B Natriuret Pep Total Protein Albumin Arterial Blood Glucose Urine WBC (Auto) Urine Creatinine 02/14/20 02/15/20 02/15/20 11:32 00:12 05:27 WBC RBC Hgb Hct MCHC RDW MCV MCH Lymph % (Auto) [place] % (Auto) [place] # Eos # Lymph # (Auto) [place] # (Auto) Eos # (Auto) Seg Neutrophils % Seg Neuts % (Manual) Baso # (Auto) Lymphocytes % (Manual) Monocytes % (Manual) Eosinophils % (Manual) Basophils % (Manual) Seg Neutrophils # Seg Neutrophils # Man Lymphocytes # (Manual) Monocytes # (Manual) Eosinophils # (Manual) Nucleated RBC % Basophils # (Manual) PT INR APTT Heparin Anti-Xa Level ABG pH POC ABG pO2 ABG pO2 ABG HCO3 ABG O2 Saturation ABG Base Excess POC ABG pCO2 ABG Hemoglobin ABG Oxyhemoglobin ABG Chloride ABG Glucose Oxyhemoglobin Sodium Potassium Chloride Carbon Dioxide BUN Creatinine Glucose POC Glucose 157 H 124 H 111 H Lactic Acid Calcium Phosphorus Magnesium AST ALT Lactate Dehydrogenase Total Bilirubin Direct Bilirubin CK-MB (CK-2) C-Reactive Protein NT-Pro-B Natriuret Pep Total Protein Albumin Arterial Blood Glucose Urine WBC (Auto) Urine Creatinine 02/15/20 02/15/20 02/15/20 06:59 06:59 11:14 WBC RBC Hgb 10.4 L Hct 33.7 L MCHC 31 L RDW 19.4 H MCV 80 L MCH 24 L Lymph % (Auto) [place] % (Auto) [place] # Eos # Lymph # (Auto) [place] # (Auto) Eos # (Auto) Seg Neutrophils % Seg Neuts % (Manual) Baso # (Auto) Lymphocytes % (Manual) Monocytes % (Manual) Eosinophils % (Manual) Basophils % (Manual) 2.0 H Seg Neutrophils # Seg Neutrophils # Man Lymphocytes # (Manual) Monocytes # (Manual) Eosinophils # (Manual) Nucleated RBC % 1.0 H Basophils # (Manual) 0.2 H PT INR APTT Heparin Anti-Xa Level ABG pH POC ABG pO2 ABG pO2 ABG HCO3 ABG O2 Saturation ABG Base Excess POC ABG pCO2 ABG Hemoglobin ABG Oxyhemoglobin ABG Chloride ABG Glucose Oxyhemoglobin Sodium 149 H Potassium Chloride 108.4 H Carbon Dioxide 31 H BUN 40 H Creatinine 0.7 L Glucose 150 H POC Glucose 128 H Lactic Acid Calcium Phosphorus Magnesium AST ALT Lactate Dehydrogenase Total Bilirubin Direct Bilirubin CK-MB (CK-2) C-Reactive Protein NT-Pro-B Natriuret Pep Total Protein Albumin Arterial Blood Glucose Urine WBC (Auto) Urine Creatinine 02/15/20 02/15/20 02/16/20 17:46 23:50 05:03 WBC RBC Hgb Hct MCHC RDW MCV MCH Lymph % (Auto) [place] % (Auto) [place] # Eos # Lymph # (Auto) [place] # (Auto) Eos # (Auto) Seg Neutrophils % Seg Neuts % (Manual) Baso # (Auto) Lymphocytes % (Manual) Monocytes % (Manual) Eosinophils % (Manual) Basophils % (Manual) Seg Neutrophils # Seg Neutrophils # Man Lymphocytes # (Manual) Monocytes # (Manual) Eosinophils # (Manual) Nucleated RBC % Basophils # (Manual) PT INR APTT Heparin Anti-Xa Level ABG pH POC ABG pO2 ABG pO2 ABG HCO3 ABG O2 Saturation ABG Base Excess POC ABG pCO2 ABG Hemoglobin ABG Oxyhemoglobin ABG Chloride ABG Glucose Oxyhemoglobin Sodium Potassium Chloride Carbon Dioxide BUN Creatinine Glucose POC Glucose 154 H 135 H 148 H Lactic Acid Calcium Phosphorus Magnesium AST ALT Lactate Dehydrogenase Total Bilirubin Direct Bilirubin CK-MB (CK-2) C-Reactive Protein NT-Pro-B Natriuret Pep Total Protein Albumin Arterial Blood Glucose Urine WBC (Auto) Urine Creatinine 02/16/20 02/16/20 02/16/20 07:53 11:28 17:52 WBC RBC Hgb Hct MCHC RDW MCV MCH Lymph % (Auto) [place] % (Auto) [place] # Eos # Lymph # (Auto) [place] # (Auto) Eos # (Auto) Seg Neutrophils % Seg Neuts % (Manual) Baso # (Auto) Lymphocytes % (Manual) Monocytes % (Manual) Eosinophils % (Manual) Basophils % (Manual) Seg Neutrophils # Seg Neutrophils # Man Lymphocytes # (Manual) Monocytes # (Manual) Eosinophils # (Manual) Nucleated RBC % Basophils # (Manual) PT INR APTT Heparin Anti-Xa Level ABG pH POC ABG pO2 ABG pO2 ABG HCO3 ABG O2 Saturation ABG Base Excess POC ABG pCO2 ABG Hemoglobin ABG Oxyhemoglobin ABG Chloride ABG Glucose Oxyhemoglobin Sodium Potassium Chloride 107.9 H Carbon Dioxide BUN 38 H Creatinine 0.6 L Glucose 151 H POC Glucose 123 H 152 H Lactic Acid Calcium Phosphorus Magnesium AST ALT Lactate Dehydrogenase Total Bilirubin Direct Bilirubin CK-MB (CK-2) C-Reactive Protein NT-Pro-B Natriuret Pep Total Protein Albumin Arterial Blood Glucose Urine WBC (Auto) Urine Creatinine 02/16/20 02/17/20 02/17/20 23:49 06:24 11:36 WBC RBC Hgb Hct MCHC RDW MCV MCH Lymph % (Auto) [place] % (Auto) [place] # Eos # Lymph # (Auto) [place] # (Auto) Eos # (Auto) Seg Neutrophils % Seg Neuts % (Manual) Baso # (Auto) Lymphocytes % (Manual) Monocytes % (Manual) Eosinophils % (Manual) Basophils % (Manual) Seg Neutrophils # Seg Neutrophils # Man Lymphocytes # (Manual) Monocytes # (Manual) Eosinophils # (Manual) Nucleated RBC % Basophils # (Manual) PT INR APTT Heparin Anti-Xa Level ABG pH POC ABG pO2 ABG pO2 ABG HCO3 ABG O2 Saturation ABG Base Excess POC ABG pCO2 ABG Hemoglobin ABG Oxyhemoglobin ABG Chloride ABG Glucose Oxyhemoglobin Sodium Potassium Chloride Carbon Dioxide BUN Creatinine Glucose POC Glucose 156 H 193 H 162 H Lactic Acid Calcium Phosphorus Magnesium AST ALT Lactate Dehydrogenase Total Bilirubin Direct Bilirubin CK-MB (CK-2) C-Reactive Protein NT-Pro-B Natriuret Pep Total Protein Albumin Arterial Blood Glucose Urine WBC (Auto) Urine Creatinine 02/17/20 02/17/20 02/18/20 17:55 23:28 05:11 WBC RBC Hgb Hct MCHC RDW MCV MCH Lymph % (Auto) [place] % (Auto) [place] # Eos # Lymph # (Auto) [place] # (Auto) Eos # (Auto) Seg Neutrophils % Seg Neuts % (Manual) Baso # (Auto) Lymphocytes % (Manual) Monocytes % (Manual) Eosinophils % (Manual) Basophils % (Manual) Seg Neutrophils # Seg Neutrophils # Man Lymphocytes # (Manual) Monocytes # (Manual) Eosinophils # (Manual) Nucleated RBC % Basophils # (Manual) PT INR APTT Heparin Anti-Xa Level ABG pH POC ABG pO2 ABG pO2 ABG HCO3 ABG O2 Saturation ABG Base Excess POC ABG pCO2 ABG Hemoglobin ABG Oxyhemoglobin ABG Chloride ABG Glucose Oxyhemoglobin Sodium Potassium Chloride Carbon Dioxide BUN Creatinine Glucose POC Glucose 165 H 146 H 122 H Lactic Acid Calcium Phosphorus Magnesium AST ALT Lactate Dehydrogenase Total Bilirubin Direct Bilirubin CK-MB (CK-2) C-Reactive Protein NT-Pro-B Natriuret Pep Total Protein Albumin Arterial Blood Glucose Urine WBC (Auto) Urine Creatinine 02/18/20 02/18/20 02/19/20 12:24 17:29 00:01 WBC RBC Hgb Hct MCHC RDW MCV MCH Lymph % (Auto) [place] % (Auto) [place] # Eos # Lymph # (Auto) [place] # (Auto) Eos # (Auto) Seg Neutrophils % Seg Neuts % (Manual) Baso # (Auto) Lymphocytes % (Manual) Monocytes % (Manual) Eosinophils % (Manual) Basophils % (Manual) Seg Neutrophils # Seg Neutrophils # Man Lymphocytes # (Manual) Monocytes # (Manual) Eosinophils # (Manual) Nucleated RBC % Basophils # (Manual) PT INR APTT Heparin Anti-Xa Level ABG pH POC ABG pO2 ABG pO2 ABG HCO3 ABG O2 Saturation ABG Base Excess POC ABG pCO2 ABG Hemoglobin ABG Oxyhemoglobin ABG Chloride ABG Glucose Oxyhemoglobin Sodium Potassium Chloride Carbon Dioxide BUN Creatinine Glucose POC Glucose 162 H 136 H 145 H Lactic Acid Calcium Phosphorus Magnesium AST ALT Lactate Dehydrogenase Total Bilirubin Direct Bilirubin CK-MB (CK-2) C-Reactive Protein NT-Pro-B Natriuret Pep Total Protein Albumin Arterial Blood Glucose Urine WBC (Auto) Urine Creatinine 02/19/20 02/19/20 02/19/20 05:53 11:44 17:32 WBC RBC Hgb Hct MCHC RDW MCV MCH Lymph % (Auto) [place] % (Auto) [place] # Eos # Lymph # (Auto) [place] # (Auto) Eos # (Auto) Seg Neutrophils % Seg Neuts % (Manual) Baso # (Auto) Lymphocytes % (Manual) Monocytes % (Manual) Eosinophils % (Manual) Basophils % (Manual) Seg Neutrophils # Seg Neutrophils # Man Lymphocytes # (Manual) Monocytes # (Manual) Eosinophils # (Manual) Nucleated RBC % Basophils # (Manual) PT INR APTT Heparin Anti-Xa Level ABG pH POC ABG pO2 ABG pO2 ABG HCO3 ABG O2 Saturation ABG Base Excess POC ABG pCO2 ABG Hemoglobin ABG Oxyhemoglobin ABG Chloride ABG Glucose Oxyhemoglobin Sodium Potassium Chloride Carbon Dioxide BUN Creatinine Glucose POC Glucose 116 H 120 H 154 H Lactic Acid Calcium Phosphorus Magnesium AST ALT Lactate Dehydrogenase Total Bilirubin Direct Bilirubin CK-MB (CK-2) C-Reactive Protein NT-Pro-B Natriuret Pep Total Protein Albumin Arterial Blood Glucose Urine WBC (Auto) Urine Creatinine 02/19/20 02/20/20 02/20/20 23:43 00:24 00:24 WBC RBC Hgb 9.4 L Hct 30.0 L MCHC 31 L RDW 20.4 H MCV 79 L MCH 25 L Lymph % (Auto) [place] % (Auto) 8.5 H [place] # Eos # Lymph # (Auto) [place] # (Auto) Eos # (Auto) Seg Neutrophils % Seg Neuts % (Manual) Baso # (Auto) Lymphocytes % (Manual) Monocytes % (Manual) Eosinophils % (Manual) Basophils % (Manual) Seg Neutrophils # Seg Neutrophils # Man Lymphocytes # (Manual) Monocytes # (Manual) Eosinophils # (Manual) Nucleated RBC % Basophils # (Manual) PT INR APTT Heparin Anti-Xa Level ABG pH POC ABG pO2 ABG pO2 ABG HCO3 ABG O2 Saturation ABG Base Excess POC ABG pCO2 ABG Hemoglobin ABG Oxyhemoglobin ABG Chloride ABG Glucose Oxyhemoglobin Sodium 147 H Potassium 3.4 L Chloride Carbon Dioxide 31 H BUN 34 H Creatinine 0.5 L Glucose 135 H POC Glucose 122 H Lactic Acid Calcium Phosphorus Magnesium AST ALT Lactate Dehydrogenase Total Bilirubin Direct Bilirubin CK-MB (CK-2) C-Reactive Protein NT-Pro-B Natriuret Pep Total Protein Albumin Arterial Blood Glucose Urine WBC (Auto) Urine Creatinine 02/20/20 02/20/20 02/20/20 06:07 06:45 12:03 WBC RBC Hgb Hct MCHC RDW MCV MCH Lymph % (Auto) [place] % (Auto) [place] # Eos # Lymph # (Auto) [place] # (Auto) Eos # (Auto) Seg Neutrophils % Seg Neuts % (Manual) Baso # (Auto) Lymphocytes % (Manual) Monocytes % (Manual) Eosinophils % (Manual) Basophils % (Manual) Seg Neutrophils # Seg Neutrophils # Man Lymphocytes # (Manual) Monocytes # (Manual) Eosinophils # (Manual) Nucleated RBC % Basophils # (Manual) PT INR APTT Heparin Anti-Xa Level ABG pH 7.461 H POC ABG pO2 ABG pO2 ABG HCO3 33.3 H ABG O2 Saturation ABG Base Excess 8.4 H POC ABG pCO2 ABG Hemoglobin 10.0 L ABG Oxyhemoglobin ABG Chloride ABG Glucose Oxyhemoglobin 94.1 L Sodium Potassium Chloride Carbon Dioxide BUN Creatinine Glucose POC Glucose 109 H 128 H Lactic Acid Calcium Phosphorus Magnesium AST ALT Lactate Dehydrogenase Total Bilirubin Direct Bilirubin CK-MB (CK-2) C-Reactive Protein NT-Pro-B Natriuret Pep Total Protein Albumin Arterial Blood Glucose Urine WBC (Auto) Urine Creatinine 02/20/20 02/20/20 02/21/20 18:02 23:55 05:42 WBC RBC Hgb Hct MCHC RDW MCV MCH Lymph % (Auto) [place] % (Auto) [place] # Eos # Lymph # (Auto) [place] # (Auto) Eos # (Auto) Seg Neutrophils % Seg Neuts % (Manual) Baso # (Auto) Lymphocytes % (Manual) Monocytes % (Manual) Eosinophils % (Manual) Basophils % (Manual) Seg Neutrophils # Seg Neutrophils # Man Lymphocytes # (Manual) Monocytes # (Manual) Eosinophils # (Manual) Nucleated RBC % Basophils # (Manual) PT INR APTT Heparin Anti-Xa Level ABG pH POC ABG pO2 ABG pO2 ABG HCO3 ABG O2 Saturation ABG Base Excess POC ABG pCO2 ABG Hemoglobin ABG Oxyhemoglobin ABG Chloride ABG Glucose Oxyhemoglobin Sodium Potassium Chloride Carbon Dioxide BUN Creatinine Glucose POC Glucose 118 H 125 H 127 H Lactic Acid Calcium Phosphorus Magnesium AST ALT Lactate Dehydrogenase Total Bilirubin Direct Bilirubin CK-MB (CK-2) C-Reactive Protein NT-Pro-B Natriuret Pep Total Protein Albumin Arterial Blood Glucose Urine WBC (Auto) Urine Creatinine 02/21/20 02/21/20 02/21/20 12:10 17:35 23:40 WBC RBC Hgb Hct MCHC RDW MCV MCH Lymph % (Auto) [place] % (Auto) [place] # Eos # Lymph # (Auto) [place] # (Auto) Eos # (Auto) Seg Neutrophils % Seg Neuts % (Manual) Baso # (Auto) Lymphocytes % (Manual) Monocytes % (Manual) Eosinophils % (Manual) Basophils % (Manual) Seg Neutrophils # Seg Neutrophils # Man Lymphocytes # (Manual) Monocytes # (Manual) Eosinophils # (Manual) Nucleated RBC % Basophils # (Manual) PT INR APTT Heparin Anti-Xa Level ABG pH POC ABG pO2 ABG pO2 ABG HCO3 ABG O2 Saturation ABG Base Excess POC ABG pCO2 ABG Hemoglobin ABG Oxyhemoglobin ABG Chloride ABG Glucose Oxyhemoglobin Sodium Potassium Chloride Carbon Dioxide BUN Creatinine Glucose POC Glucose 128 H 113 H 125 H Lactic Acid Calcium Phosphorus Magnesium AST ALT Lactate Dehydrogenase Total Bilirubin Direct Bilirubin CK-MB (CK-2) C-Reactive Protein NT-Pro-B Natriuret Pep Total Protein Albumin Arterial Blood Glucose Urine WBC (Auto) Urine Creatinine 02/22/20 02/22/20 02/22/20 05:57 08:06 08:06 WBC RBC Hgb 10.8 L Hct 35.2 L MCHC 31 L RDW 21.8 H MCV 80 L MCH 25 L Lymph % (Auto) [place] % (Auto) [place] # Eos # Lymph # (Auto) [place] # (Auto) Eos # (Auto) Seg Neutrophils % 71.5 H Seg Neuts % (Manual) Baso # (Auto) Lymphocytes % (Manual) Monocytes % (Manual) Eosinophils % (Manual) Basophils % (Manual) Seg Neutrophils # Seg Neutrophils # Man Lymphocytes # (Manual) Monocytes # (Manual) Eosinophils # (Manual) Nucleated RBC % Basophils # (Manual) PT INR APTT Heparin Anti-Xa Level ABG pH POC ABG pO2 ABG pO2 ABG HCO3 ABG O2 Saturation ABG Base Excess POC ABG pCO2 ABG Hemoglobin ABG Oxyhemoglobin ABG Chloride ABG Glucose Oxyhemoglobin Sodium 146 H Potassium Chloride Carbon Dioxide 34 H BUN 21 H Creatinine 0.4 L Glucose 149 H POC Glucose 138 H Lactic Acid Calcium Phosphorus Magnesium AST ALT Lactate Dehydrogenase Total Bilirubin Direct Bilirubin CK-MB (CK-2) C-Reactive Protein NT-Pro-B Natriuret Pep Total Protein Albumin Arterial Blood Glucose Urine WBC (Auto) Urine Creatinine 02/22/20 02/22/20 02/22/20 11:47 17:11 23:25 WBC RBC Hgb Hct MCHC RDW MCV MCH Lymph % (Auto) [place] % (Auto) [place] # Eos # Lymph # (Auto) [place] # (Auto) Eos # (Auto) Seg Neutrophils % Seg Neuts % (Manual) Baso # (Auto) Lymphocytes % (Manual) Monocytes % (Manual) Eosinophils % (Manual) Basophils % (Manual) Seg Neutrophils # Seg Neutrophils # Man Lymphocytes # (Manual) Monocytes # (Manual) Eosinophils # (Manual) Nucleated RBC % Basophils # (Manual) PT INR APTT Heparin Anti-Xa Level ABG pH POC ABG pO2 ABG pO2 ABG HCO3 ABG O2 Saturation ABG Base Excess POC ABG pCO2 ABG Hemoglobin ABG Oxyhemoglobin ABG Chloride ABG Glucose Oxyhemoglobin Sodium Potassium Chloride Carbon Dioxide BUN Creatinine Glucose POC Glucose 149 H 144 H 142 H Lactic Acid Calcium Phosphorus Magnesium AST ALT Lactate Dehydrogenase Total Bilirubin Direct Bilirubin CK-MB (CK-2) C-Reactive Protein NT-Pro-B Natriuret Pep Total Protein Albumin Arterial Blood Glucose Urine WBC (Auto) Urine Creatinine 02/23/20 02/23/20 02/23/20 05:22 11:37 18:14 WBC RBC Hgb Hct MCHC RDW MCV MCH Lymph % (Auto) [place] % (Auto) [place] # Eos # Lymph # (Auto) [place] # (Auto) Eos # (Auto) Seg Neutrophils % Seg Neuts % (Manual) Baso # (Auto) Lymphocytes % (Manual) Monocytes % (Manual) Eosinophils % (Manual) Basophils % (Manual) Seg Neutrophils # Seg Neutrophils # Man Lymphocytes # (Manual) Monocytes # (Manual) Eosinophils # (Manual) Nucleated RBC % Basophils # (Manual) PT INR APTT Heparin Anti-Xa Level ABG pH POC ABG pO2 ABG pO2 ABG HCO3 ABG O2 Saturation ABG Base Excess POC ABG pCO2 ABG Hemoglobin ABG Oxyhemoglobin ABG Chloride ABG Glucose Oxyhemoglobin Sodium Potassium Chloride Carbon Dioxide BUN Creatinine Glucose POC Glucose 144 H 113 H 127 H Lactic Acid Calcium Phosphorus Magnesium AST ALT Lactate Dehydrogenase Total Bilirubin Direct Bilirubin CK-MB (CK-2) C-Reactive Protein NT-Pro-B Natriuret Pep Total Protein Albumin Arterial Blood Glucose Urine WBC (Auto) Urine Creatinine 02/23/20 02/24/20 02/24/20 23:45 05:50 11:24 WBC RBC Hgb Hct MCHC RDW MCV MCH Lymph % (Auto) [place] % (Auto) [place] # Eos # Lymph # (Auto) [place] # (Auto) Eos # (Auto) Seg Neutrophils % Seg Neuts % (Manual) Baso # (Auto) Lymphocytes % (Manual) Monocytes % (Manual) Eosinophils % (Manual) Basophils % (Manual) Seg Neutrophils # Seg Neutrophils # Man Lymphocytes # (Manual) Monocytes # (Manual) Eosinophils # (Manual) Nucleated RBC % Basophils # (Manual) PT INR APTT Heparin Anti-Xa Level ABG pH POC ABG pO2 ABG pO2 ABG HCO3 ABG O2 Saturation ABG Base Excess POC ABG pCO2 ABG Hemoglobin ABG Oxyhemoglobin ABG Chloride ABG Glucose Oxyhemoglobin Sodium Potassium Chloride Carbon Dioxide BUN Creatinine Glucose POC Glucose 123 H 117 H 126 H Lactic Acid Calcium Phosphorus Magnesium AST ALT Lactate Dehydrogenase Total Bilirubin Direct Bilirubin CK-MB (CK-2) C-Reactive Protein NT-Pro-B Natriuret Pep Total Protein Albumin Arterial Blood Glucose Urine WBC (Auto) Urine Creatinine 02/24/20 02/24/20 02/25/20 18:35 23:27 05:20 WBC RBC Hgb Hct MCHC RDW MCV MCH Lymph % (Auto) [place] % (Auto) [place] # Eos # Lymph # (Auto) [place] # (Auto) Eos # (Auto) Seg Neutrophils % Seg Neuts % (Manual) Baso # (Auto) Lymphocytes % (Manual) Monocytes % (Manual) Eosinophils % (Manual) Basophils % (Manual) Seg Neutrophils # Seg Neutrophils # Man Lymphocytes # (Manual) Monocytes # (Manual) Eosinophils # (Manual) Nucleated RBC % Basophils # (Manual) PT INR APTT Heparin Anti-Xa Level ABG pH POC ABG pO2 ABG pO2 ABG HCO3 ABG O2 Saturation ABG Base Excess POC ABG pCO2 ABG Hemoglobin ABG Oxyhemoglobin ABG Chloride ABG Glucose Oxyhemoglobin Sodium Potassium Chloride Carbon Dioxide BUN Creatinine Glucose POC Glucose 121 H 127 H 133 H Lactic Acid Calcium Phosphorus Magnesium AST ALT Lactate Dehydrogenase Total Bilirubin Direct Bilirubin CK-MB (CK-2) C-Reactive Protein NT-Pro-B Natriuret Pep Total Protein Albumin Arterial Blood Glucose Urine WBC (Auto) Urine Creatinine 02/25/20 02/25/20 02/25/20 12:08 17:26 23:33 WBC RBC Hgb Hct MCHC RDW MCV MCH Lymph % (Auto) [place] % (Auto) [place] # Eos # Lymph # (Auto) [place] # (Auto) Eos # (Auto) Seg Neutrophils % Seg Neuts % (Manual) Baso # (Auto) Lymphocytes % (Manual) Monocytes % (Manual) Eosinophils % (Manual) Basophils % (Manual) Seg Neutrophils # Seg Neutrophils # Man Lymphocytes # (Manual) Monocytes # (Manual) Eosinophils # (Manual) Nucleated RBC % Basophils # (Manual) PT INR APTT Heparin Anti-Xa Level ABG pH POC ABG pO2 ABG pO2 ABG HCO3 ABG O2 Saturation ABG Base Excess POC ABG pCO2 ABG Hemoglobin ABG Oxyhemoglobin ABG Chloride ABG Glucose Oxyhemoglobin Sodium Potassium Chloride Carbon Dioxide BUN Creatinine Glucose POC Glucose 109 H 120 H 120 H Lactic Acid Calcium Phosphorus Magnesium AST ALT Lactate Dehydrogenase Total Bilirubin Direct Bilirubin CK-MB (CK-2) C-Reactive Protein NT-Pro-B Natriuret Pep Total Protein Albumin Arterial Blood Glucose Urine WBC (Auto) Urine Creatinine 02/26/20 02/26/20 02/27/20 05:33 07:50 12:13 WBC RBC Hgb Hct MCHC RDW MCV MCH Lymph % (Auto) [place] % (Auto) [place] # Eos # Lymph # (Auto) [place] # (Auto) Eos # (Auto) Seg Neutrophils % Seg Neuts % (Manual) Baso # (Auto) Lymphocytes % (Manual) Monocytes % (Manual) Eosinophils % (Manual) Basophils % (Manual) Seg Neutrophils # Seg Neutrophils # Man Lymphocytes # (Manual) Monocytes # (Manual) Eosinophils # (Manual) Nucleated RBC % Basophils # (Manual) PT INR APTT Heparin Anti-Xa Level ABG pH POC ABG pO2 ABG pO2 ABG HCO3 ABG O2 Saturation ABG Base Excess POC ABG pCO2 ABG Hemoglobin ABG Oxyhemoglobin ABG Chloride ABG Glucose Oxyhemoglobin Sodium Potassium Chloride Carbon Dioxide BUN Creatinine Glucose POC Glucose 106 H 130 H Lactic Acid Calcium Phosphorus Magnesium AST ALT Lactate Dehydrogenase Total Bilirubin Direct Bilirubin CK-MB (CK-2) C-Reactive Protein NT-Pro-B Natriuret Pep Total Protein Albumin Arterial Blood Glucose Urine WBC (Auto) > 182.0 H Urine Creatinine 02/27/20 02/27/20 02/28/20 18:20 23:33 05:01 WBC RBC Hgb Hct MCHC RDW MCV MCH Lymph % (Auto) [place] % (Auto) [place] # Eos # Lymph # (Auto) [place] # (Auto) Eos # (Auto) Seg Neutrophils % Seg Neuts % (Manual) Baso # (Auto) Lymphocytes % (Manual) Monocytes % (Manual) Eosinophils % (Manual) Basophils % (Manual) Seg Neutrophils # Seg Neutrophils # Man Lymphocytes # (Manual) Monocytes # (Manual) Eosinophils # (Manual) Nucleated RBC % Basophils # (Manual) PT INR APTT Heparin Anti-Xa Level ABG pH POC ABG pO2 ABG pO2 ABG HCO3 ABG O2 Saturation ABG Base Excess POC ABG pCO2 ABG Hemoglobin ABG Oxyhemoglobin ABG Chloride ABG Glucose Oxyhemoglobin Sodium Potassium Chloride Carbon Dioxide BUN Creatinine Glucose POC Glucose 109 H 124 H 134 H Lactic Acid Calcium Phosphorus Magnesium AST ALT Lactate Dehydrogenase Total Bilirubin Direct Bilirubin CK-MB (CK-2) C-Reactive Protein NT-Pro-B Natriuret Pep Total Protein Albumin Arterial Blood Glucose Urine WBC (Auto) Urine Creatinine 02/28/20 02/28/20 02/28/20 11:54 18:16 23:03 WBC RBC Hgb Hct MCHC RDW MCV MCH Lymph % (Auto) [place] % (Auto) [place] # Eos # Lymph # (Auto) [place] # (Auto) Eos # (Auto) Seg Neutrophils % Seg Neuts % (Manual) Baso # (Auto) Lymphocytes % (Manual) Monocytes % (Manual) Eosinophils % (Manual) Basophils % (Manual) Seg Neutrophils # Seg Neutrophils # Man Lymphocytes # (Manual) Monocytes # (Manual) Eosinophils # (Manual) Nucleated RBC % Basophils # (Manual) PT INR APTT Heparin Anti-Xa Level ABG pH POC ABG pO2 ABG pO2 ABG HCO3 ABG O2 Saturation ABG Base Excess POC ABG pCO2 ABG Hemoglobin ABG Oxyhemoglobin ABG Chloride ABG Glucose Oxyhemoglobin Sodium Potassium Chloride Carbon Dioxide BUN Creatinine Glucose POC Glucose 133 H 134 H 146 H Lactic Acid Calcium Phosphorus Magnesium AST ALT Lactate Dehydrogenase Total Bilirubin Direct Bilirubin CK-MB (CK-2) C-Reactive Protein NT-Pro-B Natriuret Pep Total Protein Albumin Arterial Blood Glucose Urine WBC (Auto) Urine Creatinine 02/29/20 02/29/20 05:24 11:34 WBC RBC Hgb Hct MCHC RDW MCV MCH Lymph % (Auto) [place] % (Auto) [place] # Eos # Lymph # (Auto) [place] # (Auto) Eos # (Auto) Seg Neutrophils % Seg Neuts % (Manual) Baso # (Auto) Lymphocytes % (Manual) Monocytes % (Manual) Eosinophils % (Manual) Basophils % (Manual) Seg Neutrophils # Seg Neutrophils # Man Lymphocytes # (Manual) Monocytes # (Manual) Eosinophils # (Manual) Nucleated RBC % Basophils # (Manual) PT INR APTT Heparin Anti-Xa Level ABG pH POC ABG pO2 ABG pO2 ABG HCO3 ABG O2 Saturation ABG Base Excess POC ABG pCO2 ABG Hemoglobin ABG Oxyhemoglobin ABG Chloride ABG Glucose Oxyhemoglobin Sodium Potassium Chloride Carbon Dioxide BUN Creatinine Glucose POC Glucose 139 H 141 H Lactic Acid Calcium Phosphorus Magnesium AST ALT Lactate Dehydrogenase Total Bilirubin Direct Bilirubin CK-MB (CK-2) C-Reactive Protein NT-Pro-B Natriuret Pep Total Protein Albumin Arterial Blood Glucose Urine WBC (Auto) Urine Creatinine Chest x-ray: report reviewed, image reviewed Additional Studies: XR chest 1V ap 02/18/20 INDICATION / CLINICAL INFORMATION: Aspiration. COMPARISON: 02/03/2020 FINDINGS: SUPPORT DEVICES: Tracheostomy device is stable. Enteric catheter has been removed. HEART /PULMONARY VASCULATURE: Cardiomegaly with pulmonary vasculature congestion. LUNGS / PLEURA: There are diffuse pulmonary airspace opacities, with worsening consolidation of the right lung base. Bibasilar pleural effusions are likely present. No pneumothorax. ADDITIONAL FINDINGS: No significant additional findings. IMPRESSION: 1. Worsening airspace disease, particularly within the right lower lobe. Allied health notes reviewed: nursing
--- NOTE | 2020-02-29 14:43 | Progress Note ---
Assessment and Plan Assessment and plan: --Ischemic cardiomyopathy Cardiology is following, status post cardiac catheterization on 01/22/2020; C oronary artery disease status post PCI and stent to the LAD Continue current cardiac medications --Acute on chronic hypoxemic respiratory failure; Patient has tracheostomy on vent Continue nebulizers, , trach care Wean off ventilator as tolerated Pulmonary critical following --Acute exacerbation of COPD; Patient is currently on ventilatory support Continue nebulizers --Left lower lobe PE; Continue Eliquis, ventilatory support --Acute right lower extremity DVT; Patient is on Eliquis --Bilateral multifocal pneumonia/community-acquired Completed antibiotics, improved --Severe sepsis/bilateral pneumonia: Completed antibiotics COVID-19 test; 11/24/2019; negative 11/26/2019; negative 12/29/2019: Negative --Paroxysmal atrial fibrillation; Now rate controlled, Stable on amiodarone and Eliquis --Acute on chronic combined systolic and diastolic congestive heart failure Ischemic cardiomyopathy left ventricular ejection fraction 40 to 45% --H/o CAD [[facility] 12/2018 in-stent restenosis] Patient is stable on current cardiac medications --Hypertensive emergency; present on admission Reasonable blood pressures, continue current antihypertensives As needed medications --History of alcohol abuse/alcohol withdrawal; Was on CIWA protocol, now stable --Oropharyngeal dysphagia; status post PEG placement Continue PEG feeds per protocol --History of partial small bowel obstruction; resolved --Obesity; BMI 34.7 Patient needs weight reduction when medically stable --Severe protein calorie malnutrition/hypoalbuminemia Nutrition supplements, dietitian following, PEG feeds --DVT prophylaxis;Eliquis --Full CODE STATUS Discharge planning 01/05; Pt stable. NGT output 650cc over 24 hours, bilious. No f/c, WBC within normal limits. cont NG suction and cont to hold TF 01/06: Abs series - mild improvement in small bowel distension in mid abdomen, normal gas/stool pattern in colon. NGT in duodenum. Continue to hold tube feeding, maintain NG tube with low intermittent suction. Patient's was updated by phone. Continue to provide supportive care and monitor clinically. 01/07: +BMs today and NGT/PEG output appears more gastric today. Plan to clamp NGT, if tolerates start TF from tomorrow. cont supportive care. 01/08; Gastric output decreased over last 24 hours. NGT has been clamped x 24 hours. plan to dc NGT and to start TTF via PEG - vital HF @10cc/hr 01/09: clinically stable, tolerating TF. monitor BMP, wean off from vent as tolerated clinically stable, on TF. wean off vent as tolerated 01/11: wean off from vent, cont to monitor, on TF 01/12: wean off from vent, cont to monitor, on TF. need placement - unfunded 01/13; remains on ventilatory support, unable to wean, DC planning possible LTAC, unfunded 01/14; patient of ventilatory support, T-piece tracheostomy on oxygen, LTAC placement per case management 01/16; tracheostomy, patient on full ventilatory support, wean off vent support as tolerated, pending LTAC placement, social financial issues 01/17; awaiting LTAC placement, insurance and financial issues 01/18; patient tracheostomy remains on ventilatory support 01/19; wean off ventilator as tolerated 01/20; remains on ventilatory support, patient complains of intermittent chest pain, cardiology recommend left heart catheterization tomorrow 01/22/2020. Patient for left heart catheterization per cardiology. Patient remains on AC mode ventilation rate 12, tidal volume 450, FiO2 30% and PEEP of 6. Continue tracheostomy care, airway management and secretion control. 01/23/2020. Cardiac catheterization completed yesterday revealed widely patent previous LAD stent with mild nonobstructive atherosclerosis of the right mid coronary artery and rest of the coronary system was without significant atherosclerosis. The left ventricle ejection fraction was mildly impaired at 40 to 45%. There was some hypokinesis of the basal inferior wall suggestive of previous or recent infarct. Continue GDMT for coronary artery disease including beta blockers, topical nitrates, statin and Plavix. Continue Eliquis for paroxysmal atrial fibrillation and PE. Continue diuresis with Lasix and follow electrolytes closely. Continue Robinul and scopolamine for secretion control and daily SBT per pulmonary. Also, continue bronchodilators and routine trach care/airway management. T-piece trials per pulmonary as tolerated. 01/24/2020. Recent cardiac catheterization has documented widely patent left anterior descending artery stent with minimal nonobstructive diffuse coronary artery disease in the rest of the coronary arteries. Evidence of ischemic cardiomyopathy with inferior wall hypokinesis. Continue with guideline directed medical therapy. Continue Robinul and scopolamine for secretion control and daily SBT per pulmonary. Continue bronchodilators and routine trach care/airway management. T-piece trials per pulmonary as tolerated. 01/25/2020. Continue with guideline directed medical therapy for systolic heart failure. Cardiac catheterization revealed evidence of ischemic cardiomyopathy with inferior wall hypokinesis (EF 40-45%). Patient currently on T-piece with oxygen 10 L/min FiO2 40%. Continue Robinul and scopolamine for secretion control. Continue bronchodilators and routine trach care/airway management. 02/03: Mental status more improved, agree with Reglan will change to IV scheduled for two days, no new vomiting. Pseudomonas A in Sputum. 02/04: Clinical improving, amiodarone discontinued due to LFTs, continue Metoprolol.d/w GI, started on Golytely to clear impaction. Started on dialy Miralax. 02/05: Continue supportive care. Noted bowel movement, continue bowel regimen 02/06: Cardiology input noted beta-hebert increased for better suppression of atrial fibrillation. Continue to monitor, no other evidence of nausea vomiting noted. Discussed with respiratory therapist will be continued on weaning protocol with pressure support today. 02/07: Patient successfully weaned off the ventilator, No new complaints, continue monitoring, BM noted, Discussed with pulmonary, 02/08; tracheostomy on T-piece, patient is more alert and awake today 02/09; clinically no change, tracheostomy on vent 02/10; tracheostomy on vent, full CODE STATUS, poor prognosis, 02/11; clinically no change, remains on ventilatory support, full CODE STATUS, discussed with spouse Ms. Paulette Araiza extensively today 02/12. Patient resting comfortably no change on vent with tracheostomy. Still unable to wean. Some increased crackles today. 02/13: Still unable to wean from the vent. Overall prognosis remains extremely poor. 02/14; remains critically ill, tracheostomy on vent, unable to wean, poor prognosis, full CODE STATUS 02/15; patient is more alert and awake today, chronic tracheostomy on T-piece, continue current management DC planning per case management. Disposition very difficult due to lack of resources and insurance 02/17/2020. Patient remains on mechanical ventilation and tolerating PSV trials. Patient currently with PSV 10/6 at FiO2 of 30%. 02/18/2020. Patient currently on PSV 10/6 with FiO2 of 40%. 40% T-piece trial was attempted but patient unable to tolerate due to saturations dropping into the 80s and heart rate in the 140s. Therefore, patient placed back on PSV. Continue anticoagulation with Eliquis. Continue secretion control with Robinul and scopolamine. Continue rate control with metoprolol and digoxin. 02/19/2020. Patient currently on PSV 10/6 with FiO2 of 30%. T-piece trial attempted yesterday but patient did not tolerate. Continue T-piece trials as tolerated. Continue anticoagulation with Eliquis. Continue secretion control with Robinul and scopolamine. Continue rate control with metoprolol and digoxin. Continue to follow with case management with regards to discharge p lizette. 02/20/2020. Patient continues to tolerate PSV 10/6. Continue rate control with metoprolol and digoxin. Amiodarone discontinued due to elevated liver transaminases. Eliquis for anticoagulation acute PE/DVT. 02/21/2020. Patient continues to tolerate PSV 10/6 at FiO2 of 30%. Continue r ate control with metoprolol and digoxin. Amiodarone discontinued due to elevated liver transaminases. Eliquis for anticoagulation acute PE/DVT. 02/22/2020. Patient continues to tolerate PSV 10/6 at FiO2 of 30%. Continue rate control with metoprolol and digoxin. Amiodarone discontinued due to e levated liver transaminases. Eliquis for anticoagulation acute PE/DVT. 02/22. Awake and alert on vent. Vitals stable. 02/23. Awake and alert on vent. Requests for ice. Vitals stable 02/24. Trach to vent. Continue rate control with metoprolol and digoxin. Amiodarone discontinued due to elevated liver transaminases. Eliquis for anticoagulation of acute PE/DVT. Transferred to [facility] 02/25. Seen in [facility]. Requests for ice. RN to provide a cube of ice. Vitals stable. 02/26. No change in medical condition. Slightly tachy this AM. Will monitor. 02/27. Cardiology started him on a beta hebert. Still on vent 02/28. Discharge planning as per tavern operator. Still on vent. Tachycardia noted. The high probability of a clinically significant, sudden or life threatening deterioration of the [Respiratory, cardiovascular & neurological] system(s) required my full and direct attention, intervention and personal management. The aggregate critical care time was [32] minutes without overlap. Time includes spent on [x] Data Review and interpretation [x] Patient assessment and monitoring of vital signs [x] Documentation [x] Medication orders and management History Interval history: Patient seen and examined at bedside this morning No new complaints Hospitalist Physical - Physical exam Narrative exam: VITAL SIGNS: Reviewed. GENERAL: Awake on vent HEAD: No signs of head trauma. EYES: Pupils are equal. Extraocular motions intact. EARS: Hearing grossly intact. MOUTH: Oropharynx is normal. NECK: No adenopathy, no JVD. Trach in place CHEST: Chest with diminished breath sounds bilaterally. No wheezes, rales, or rhonchi. CARDIAC: Regular rate and rhythm. S1 and S2, without murmurs, gallops, or rubs. VASCULAR: +Edema. Peripheral pulses normal and equal in all extremities. ABDOMEN: Soft, non tender and non distended. No rebound or guarding, and no masses palpated. Bowel Sounds normal. MUSCULOSKELETAL: Good range of motion of all major joints. NEUROLOGIC EXAM: Alert and oriented x3. No focal neurologic deficits PSYCHIATRIC: Stable mood SKIN: No obvious lesions - Constitutional Vitals: Temp Pulse Resp BP Pulse Ox 97.6 F 130 H 27 H 124/93 89 02/29/20 11:46 02/29/20 13:00 02/29/20 13:00 02/29/20 13:00 02/29/20 13:00 HEART Score - HEART Score Troponin: Troponin T < 0.010 ng/mL (0.00-0.029) 01/19/20 01:35 Results - Labs CBC & Chem 7: 02/22/20 08:06 02/22/20 08:06 Labs: Laboratory Last Values WBC 9.2 K/mm3 (4.5-11.0) 02/22/20 08:06 RBC 4.42 M/mm3 (3.65-5.03) 02/22/20 08:06 Hgb 10.8 gm/dl (11.8-15.2) L 02/22/20 08:06 Hct 35.2 % (35.5-45.6) L 02/22/20 08:06 MCV 80 fl (84-94) L 02/22/20 08:06 MCH 25 pg (28-32) L 02/22/20 08:06 MCHC 31 % (32-34) L 02/22/20 08:06 RDW 21.8 % (13.2-15.2) H 02/22/20 08:06 Plt Count 216 K/mm3 (140-440) 02/22/20 08:06 Lymph % (Auto) 19.0 % (13.4-35.0) 02/22/20 08:06 Davidson % (Auto) 6.5 % (0.0-7.3) 02/22/20 08:06 Eos % (Auto) 2.1 % (0.0-4.3) 02/22/20 08:06 Baso % (Auto) 0.9 % (0.0-1.8) 02/22/20 08:06 Lymph # (Auto) 1.8 K/mm3 (1.2-5.4) 02/22/20 08:06 Davidson # (Auto) 0.6 K/mm3 (0.0-0.8) 02/22/20 08:06 Eos # (Auto) 0.2 K/mm3 (0.0-0.4) 02/22/20 08:06 Baso # (Auto) 0.1 K/mm3 (0.0-0.1) 02/22/20 08:06 Add Manual Diff Complete 02/15/20 06:59 Total Counted 100 02/15/20 06:59 Seg Neutrophils % 71.5 % (40.0-70.0) H 02/22/20 08:06 Seg Neuts % (Manual) 58.0 % (40.0-70.0) 02/15/20 06:59 Band Neutrophils % 0 % 02/15/20 06:59 Lymphocytes % (Manual) 34.0 % (13.4-35.0) 02/15/20 06:59 Reactive Lymphs % (Man) 1.0 % 02/15/20 06:59 Monocytes % (Manual) 4.0 % (0.0-7.3) 02/15/20 06:59 Eosinophils % (Manual) 0 % (0.0-4.3) 02/15/20 06:59 Basophils % (Manual) 2.0 % (0.0-1.8) H 02/15/20 06:59 Metamyelocytes % 1.0 % 02/15/20 06:59 Myelocytes % 0 % 02/15/20 06:59 Promyelocytes % 0 % 02/15/20 06:59 Blast Cells % 0 % 02/15/20 06:59 Nucleated RBC % 1.0 % (0.0-0.9) H 02/15/20 06:59 Seg Neutrophils # 6.6 K/mm3 (1.8-7.7) 02/22/20 08:06 Seg Neutrophils # Man 5.9 K/mm3 (1.8-7.7) 02/15/20 06:59 Band Neutrophils # 0.0 K/mm3 02/15/20 06:59 Lymphocytes # (Manual) 3.5 K/mm3 (1.2-5.4) 02/15/20 06:59 Abs React Lymphs (Man) 0.1 K/mm3 02/15/20 06:59 Monocytes # (Manual) 0.4 K/mm3 (0.0-0.8) 02/15/20 06:59 Eosinophils # (Manual) 0.0 K/mm3 (0.0-0.4) 02/15/20 06:59 Basophils # (Manual) 0.2 K/mm3 (0.0-0.1) H 02/15/20 06:59 Metamyelocytes # 0.1 K/mm3 02/15/20 06:59 Myelocytes # 0.0 K/mm3 02/15/20 06:59 Promyelocytes # 0.0 K/mm3 02/15/20 06:59 Blast Cells # 0.0 K/mm3 02/15/20 06:59 WBC Morphology Not Reportable 02/15/20 06:59 Hypersegmented Neuts Not Reportable 02/15/20 06:59 Hyposegmented Neuts Not Reportable 02/15/20 06:59 Hypogranular Neuts Not Reportable 02/15/20 06:59 Smudge Cells Not Reportable 02/15/20 06:59 Toxic Granulation Not Reportable 02/15/20 06:59 Toxic Vacuolation Not Reportable 02/15/20 06:59 Dohle Bodies Not Reportable 02/15/20 06:59 Pelger-Huet Anomaly Not Reportable 02/15/20 06:59 Hector Rods Not Reportable 02/15/20 06:59 Platelet Estimate Consistent w auto 02/15/20 06:59 Clumped Platelets Not Reportable 02/15/20 06:59 Plt Clumps, EDTA Not Reportable 02/15/20 06:59 Large Platelets Not Reportable 02/15/20 06:59 Giant Platelets Not Reportable 02/15/20 06:59 Platelet Satelliting Not Reportable 02/15/20 06:59 Plt Morphology Comment Giant platelets 02/15/20 06:59 RBC Morphology Not Reportable 02/15/20 06:59 Dimorphic RBCs Not Reportable 02/15/20 06:59 Polychromasia Not Reportable 02/15/20 06:59 Hypochromasia 1+ 02/15/20 06:59 Poikilocytosis Few 02/15/20 06:59 Anisocytosis 1+ 02/15/20 06:59 Microcytosis Not Reportable 02/15/20 06:59 Macrocytosis Not Reportable 02/15/20 06:59 Spherocytes Not Reportable 02/15/20 06:59 Pappenheimer Bodies Not Reportable 02/15/20 06:59 Sickle Cells Not Reportable 02/15/20 06:59 Target Cells 1+ 02/15/20 06:59 Tear Drop Cells Few 02/15/20 06:59 Ovalocytes Not Reportable 02/15/20 06:59 Helmet Cells Not Reportable 02/15/20 06:59 Gottlieb-[place] Bodies Not Reportable 02/15/20 06:59 [place] Rings Not Reportable 02/15/20 06:59 Oc Cells Not Reportable 02/15/20 06:59 Bite Cells Not Reportable 02/15/20 06:59 Crenated Cell Not Reportable 02/15/20 06:59 Elliptocytes Few 02/15/20 06:59 Acanthocytes (Spur) Not Reportable 02/15/20 06:59 Rouleaux Not Reportable 02/15/20 06:59 Hemoglobin C Crystals Not Reportable 02/15/20 06:59 Schistocytes Not Reportable 02/15/20 06:59 Malaria parasites Not Reportable 02/15/20 06:59 Clifford Bodies Not Reportable 02/15/20 06:59 Hem Pathologist Commnt No 02/15/20 06:59 PT 27.0 Sec. (12.2-14.9) H 02/07/20 15:03 INR 2.46 (0.87-1.13) H 02/07/20 15:03 APTT 31.5 Sec. (24.2-36.6) 01/22/20 09:58 Heparin Anti-Xa Level 1.34 U.I./ml (0.3-0.7) H 01/22/20 04:45 ABG pH 7.461 pH Units (7.350-7.450) H 02/20/20 06:45 POC ABG pCO2 34.8 mmHg (32.0-48.0) 02/11/20 14:11 ABG pCO2 47.8 mm Hg 02/20/20 06:45 POC ABG pO2 77.7 mmHg (83-108) L 02/11/20 14:11 ABG pO2 88.7 mm Hg (80.0-90.0) 02/20/20 06:45 POC ABG HCO3 26.7 02/11/20 14:11 ABG HCO3 33.3 mmol/L (20.0-26.0) H 02/20/20 06:45 ABG O2 Saturation 97.2 % (95.0-99.0) 02/20/20 06:45 ABG O2 Content 13.3 (0.0-44) 02/20/20 06:45 POC ABG Base Excess 3.6 02/11/20 14:11 ABG Base Excess 8.4 mmol/L (-2.0-3.0) H 02/20/20 06:45 ABG Hemoglobin 10.0 gm/dl (14.0-18.0) L 02/20/20 06:45 ABG Oxyhemoglobin 84 (94-98) L 12/22/19 03:22 ABG Carboxyhemoglobin 2.9 % (0.0-5.0) 02/20/20 06:45 ABG Methemoglobin 0.4 % (0.0-1.5) 02/20/20 06:45 ABG Sodium 144.7 mmol/L (136.0-145.0) 02/11/20 14:11 ABG Potassium 3.5 mmol/L (3.40-4.50) 02/11/20 14:11 ABG Chloride 108.0 mmol/L (98-107) H 02/11/20 14:11 ABG Glucose 151 mg/dL (65-95) H 02/11/20 14:11 Oxyhemoglobin 94.1 % (95.0-99.0) L 02/20/20 06:45 Carboxyhemoglobin 0.7 (0.5-1.5) 12/22/19 03:22 FiO2 30 % 02/20/20 06:45 Sodium 146 mmol/L (137-145) H 02/22/20 08:06 Potassium 3.7 mmol/L (3.6-5.0) 02/22/20 08:06 Chloride 106.1 mmol/L (98-107) 02/22/20 08:06 Carbon Dioxide 34 mmol/L (22-30) H 02/22/20 08:06 Anion Gap 10 mmol/L 02/22/20 08:06 BUN 21 mg/dL (9-20) H 02/22/20 08:06 Creatinine 0.4 mg/dL (0.8-1.3) L 02/22/20 08:06 Estimated GFR > 60 ml/min 02/22/20 08:06 BUN/Creatinine Ratio 53 % 02/22/20 08:06 Glucose 149 mg/dL (75-100) H 02/22/20 08:06 POC Glucose 141 mg/dL (70-105) H 02/29/20 11:34 Lactic Acid 1.60 mmol/L (0.7-2.0) 02/03/20 12:49 Calcium 9.5 mg/dL (8.4-10.2) 02/22/20 08:06 Ferritin 84.4 ng/mL (30.0-300.0) 11/24/19 04:53 Phosphorus 4.10 mg/dL (2.5-4.5) 01/31/20 19:24 Magnesium 2.40 mg/dL (1.7-2.3) H 02/10/20 07:40 Total Bilirubin 1.30 mg/dL (0.1-1.2) H 02/08/20 19:00 Direct Bilirubin 0.9 mg/dL (0-0.2) H 02/08/20 19:00 Indirect Bilirubin 0.4 mg/dL 02/08/20 19:00 Total Creatine Kinase 141 units/L (55-170) 11/24/19 02:53 CK-MB (CK-2) 4.3 ng/mL (0.0-4.0) H 11/24/19 02:53 AST 309 units/L (5-40) H 02/08/20 19:00 ALT 650 units/L (7-56) H 02/08/20 19:00 CK-MB (CK-2) Rel Index 3.0 (0-4) 11/24/19 02:53 Alkaline Phosphatase 109 units/L (35-129) 02/08/20 19:00 C-Reactive Protein 8.50 mg/dL (0.00-1.30) H 12/01/19 12:16 Ammonia 35.0 umol/L (25-60) 02/03/20 12:49 Lactate Dehydrogenase 228 units/L (91-180) H 12/19/19 04:45 Troponin T < 0.010 ng/mL (0.00-0.029) 01/19/20 01:35 NT-Pro-B Natriuret Pep 3866 pg/mL (0-900) H 01/01/20 10:40 Total Protein 6.2 g/dL (6.3-8.2) L 02/08/20 19:00 Albumin 2.7 g/dL (3.9-5) L 02/08/20 19:00 Albumin/Globulin Ratio 0.8 % 02/08/20 19:00 Procalcitonin 0.44 ng/mL (<0.15) 02/03/20 12:49 Arterial Blood Glucose 151 mg/dL (65-95) H 02/11/20 14:11 Arterial Blood Ionized Calcium 4.7 mg/dL (4.6-5.3) 02/11/20 14:11 Urine Color Cecy (Yellow) 02/26/20 07:50 Urine Turbidity Clear (Clear) 02/26/20 07:50 Urine pH 5.0 (5.0-7.0) 02/26/20 07:50 Ur Specific [place] 1.025 (1.003-1.030) 02/26/20 07:50 Urine Protein 30 mg/dl mg/dL (Negative) 02/26/20 07:50 Urine Glucose (UA) Neg mg/dL (Negative) 02/26/20 07:50 Urine Ketones Neg mg/dL (Negative) 02/26/20 07:50 Urine Blood Sm (Negative) 02/26/20 07:50 Urine Nitrite Neg (Negative) 02/26/20 07:50 Urine Bilirubin Neg (Negative) 02/26/20 07:50 Urine Urobilinogen 4.0 mg/dL (<2.0) 02/26/20 07:50 Ur Leukocyte Esterase Lg (Negative) 02/26/20 07:50 Urine WBC (Auto) > 182.0 /HPF (0.0-6.0) H 02/26/20 07:50 Urine RBC (Auto) 84.0 /HPF (0.0-6.0) 02/26/20 07:50 U Epithel Cells (Auto) 2.0 /HPF (0-13.0) 12/31/19 18:04 Urine Bacteria (Auto) 4+ /HPF (Negative) 02/26/20 07:50 Urine WBC Clumps 2+ /HPF 02/26/20 07:50 Urine Mucus 1+ /HPF 02/26/20 07:50 Urine Creatinine 57.4 mg/dL (0.1-20.0) H 01/31/20 Unknown Urine Sodium 59 mmol/L 01/31/20 Unknown Vancomycin Trough 14.2 ug/mL (5.0-20.0) 12/13/19 15:01 Coronavirus (PCR) Negative (Negative) 12/29/19 10:07 Hepatitis A IgM Ab Non-reactive (NonReactive) 02/05/20 06:37 Hep Bs Antigen Non-reactive (Negative) 02/05/20 06:37 Hep B Core IgM Ab Non-reactive (NonReactive) 02/05/20 06:37 Hepatitis C Antibody Non-reactive (NonReactive) 02/05/20 06:37 Blood Type O POSITIVE 01/21/20 13:00 Antibody Screen Negative 01/21/20 13:00 - Diagnostic Impressions Diagnostic Impressions: Echocardiogram 11/29/19 07:37 Transthoracic Echocardiogram Indication: CHF BP: 116/72 HR: 33 Conclusions *The study is technically limited due to poor acoustic windows. *Global left ventricular systolic function is normal. *The estimated ejection fraction is 50-55%. *Mild concentric left ventricular hypertrophy is observed. *There is trace of mitral regurgitation. *There is mild tricuspid regurgitation. Findings Procedure Info: The study quality is poor. The study is technically limited due to poor acoustic windows. The study is technically limited due to patient body habitus. Left Ventricle: The left ventricular chamber size is normal. Mild concentric left ventricular hypertrophy is observed. Global left ventricular systolic function is normal. The estimated ejection fraction is 50-55%. Left Atrium: The left atrial chamber size is normal. Right Ventricle: The right ventricular cavity size is normal. Right Atrium: The right atrial cavity size is normal. Aortic Valve: The aortic valve leaflets are moderately thickened. There is trace of aortic regurgitation. There is no evidence of aortic stenosis. Mitral Valve: The mitral valve leaflets are mildly thickened. There is trace of mitral regurgitation. There is no evidence of mitral stenosis. Tricuspid Valve: There is mild tricuspid regurgitation. No pulmonary hypertension is noted. Pulmonic Valve: There is trace pulmonic regurgitation. Pericardium: There is no pericardial effusion. Aorta: There is no dilatation of the aortic root. Venous: The inferior vena cava appears normal in size. Contrast: Definity was used to optimize study. Intravenous contrast was used to enhance endocardial border definition. Measurements Chambers 2D Name Value Normal Range Ao root diameter (2D) 3.4 cm (2 - 3.7) Aortic Valve Name Value Normal Range AV Vmax 0.98 m/sec - AV VTI 16.76 cm - AV peak gradient 3.83 mmHg - AV mean gradient 2.57 mmHg - LVOT diameter 3.11 cm - LVOT Vmax 0.68 m/sec - LVOT VTI 11.52 cm - LVOT peak gradient 1.84 mmHg - LVOT mean gradient 1.27 mmHg - SV LVOT 87.31 ml - MALOU (continuity Vmax) 5.24 cm2 - MALOU (continuity VTI) 5.21 cm2 - Tricuspid Valve Name Value Normal Range IVC diameter 2.24 cm (1.2 - 2.3) Hoffman/IV: Voiding Method Indwelling Catheter IV Catheter Type [Left INT / Saline Lock Antecubital] IV Catheter Type [Right INT / Saline Lock Forearm] IV Catheter Type [Right Hand] Peripheral IV IV Catheter Type [Right Upper INT / Saline Lock arm] IV Catheter Type [Left Upper Mid-line arm] IV Catheter Type [Left Forearm Peripheral IV ] IV Catheter Type [Left Hand] Peripheral IV IV Catheter Type [Left Wrist] INT / Saline Lock IV Catheter Type [Right Peripheral IV Antecubital] Active Medications - Current Medications Current Medications: Generic Name Dose Route Start Last Admin Trade Name Freq PRN Reason Stop Dose Admin Lipase/Protease/Amylase 1 each 01/09/20 12:01 Nadir Betancourt 10,500 Unit FEEDTUBE PRN PRN For Clogged Feeding Tube Apixaban 5 mg 01/22/20 22:00 02/29/20 09:31 Eliquis PO 5 mg Q12HR CAR Administration Protocol Atorvastatin Calcium 40 mg 01/20/20 22:00 02/28/20 21:03 Lipitor PO Not Given QHS CAR Clopidogrel Bisulfate 75 mg 01/21/20 06:00 02/29/20 09:32 Plavix PO 75 mg QDAY CAR Administration Dextrose 50 ml 01/31/20 18:51 02/05/20 00:56 D50w (25gm) Syringe IV 50 ml Q30MIN PRN Administration Hypoglycemia Protocol Digoxin 0.125 mg 02/25/20 17:00 02/28/20 17:10 Lanoxin PO 0.125 mg DAILY@1700 ACR Administration Docusate Sodium 100 mg 02/22/20 10:00 02/29/20 09:31 Colace FEEDTUBE 100 mg BID CAR Administration Glycopyrrolate 2 mg 02/24/20 21:00 02/29/20 13:36 Glycopyrrolate PO 2 mg TID CAR Administration Haloperidol Lactate 5 mg 02/10/20 14:20 02/29/20 12:17 Haldol IV 5 mg Q6H PRN Administration Agitation Hydrophilic Ointment 1 applic 01/17/20 15:26 02/24/20 23:20 Vaseline Lip Therapy TP 1 applic DIRECT PRN Administration Dry Lips Insulin Human Regular 0 unit 02/01/20 18:00 02/29/20 12:11 Humulin R SUB-Q Not Given Q6H CAR Protocol Lansoprazole 30 mg 02/05/20 16:00 02/29/20 09:31 Prevacid Solutab FEEDTUBE 30 mg QDAY CAR Administration Metoprolol Tartrate 5 mg 01/11/20 08:00 02/16/20 22:00 Metoprolol IV 5 mg Q6H PRN Administration SEE INSTRUCTIONS Metoprolol Tartrate 12.5 mg 02/28/20 12:00 02/29/20 09:31 Metoprolol FEEDTUBE 12.5 mg BID CAR Administration Midodrine 15 mg 02/04/20 16:00 02/29/20 12:17 Proamatine PO 15 mg TID@0800,1200,1600 CAR Administration Morphine Sulfate 2 mg 01/06/20 15:41 02/29/20 12:31 Morphine IV 2 mg Q4H PRN Administration Pain, Moderate (4-6) Multi-Ingred Cream/Lotion/Oil/Oint 1 applic 02/01/20 15:52 Artificial Tears Ophth Oint OU Q4HR PRN Dry Eye(s) Nitroglycerin 0.4 mg 01/19/20 21:09 01/20/20 03:03 Nitrostat SL 0.4 mg .Q5MIN PRN Administration Chest Pain Ondansetron HCl 4 mg 01/05/20 14:37 02/29/20 12:39 Zofran IV 4 mg Q8H PRN Administration Nausea And Vomiting Polyethylene Glycol 17 gm 12/04/19 22:00 02/28/20 21:03 Miralax 3350 PO Not Given QHS [facility] Quetiapine Fumarate 300 mg 01/13/20 22:00 02/29/20 09:31 Seroquel PO 300 mg BID CAR Administration Scopolamine 1 each 01/07/20 20:00 01/07/20 21:08 Transderm-Scop TD 1 each Q72HR CAR Administration Simple Syrup 15 ml 01/09/20 12:01 Simple Syrup FEEDTUBE PRN PRN Hypoglycemia Simple Syrup 30 ml 01/09/20 12:01 Simple Syrup FEEDTUBE PRN PRN Hypoglycemia Sodium Bicarbonate 325 mg 01/09/20 12:01 Sodium Bicarbonate FEEDTUBE PRN PRN For Clogged Feeding Tube Sodium Chloride 10 ml 11/24/19 10:00 02/29/20 09:32 Sodium Chloride Flush Syringe 10 Ml IV 10 ml BID CAR Administration Tamsulosin HCl 0.8 mg 12/20/19 22:00 02/28/20 21:02 Flomax PO Not Given QHS [facility] Nutrition/Malnutrition Assess - Dietary Evaluation Nutrition/Malnutrition Findings: Nutrition Notes Start: 11/24/19 12:22 Freq: Status: Active Protocol: Document 02/29/20 14:15 LEONA (Rec: 02/29/20 14:21 LEONA [id number]) Nutrition Notes Initial or Follow up Reassessment Current Diagnosis Coronary Artery Disease,Heart Failure,Respiratory Failure, Stroke,Hyperlipidemia Other Pertinent Diagnosis Partial SBO, pneu Current Diet Vital AF 1.2 at 75ml/hr Labs/Tests No new labs Pertinent Medications Zofran Height 6 ft 2 in Weight 119 kg [place] Body Weight (kg) 86.36 BMI 33.7 Weight Status Obese Subjective/Other Information FU for tolerance. Pt reports TF causing nausea. Will change formulas. Percent of energy/protein needs met: 99%100% Burn Absent Trauma Absent GI Symptoms None Current % PO Negligible Minimum of two criteria Yes Muscle Mass Mild Depletion (non-severe) Fluid Accumulation Mild (non-severe) Reduced Defect Cutter Strength Measurably Reduced (severe) #2 Nutrition Diagnosis Malnutrition Diagnosis Progress(for reassessment Continues documentation) #1 Nutrition Diagnosis Inadequate oral intake Diagnosis Progress(for reassessment Continues documentation) Is patient on ventilator? Yes Is Patient Ambulatory and/or Out of Bed No REE-([place]-confined to bed) 2470.320 Kcal/Kg value to use for calculation 16 Approximate Energy Requirements Using 1904 kcal/Kg Calculation Used for Recommendations Kcal/kg Additional Notes Protein needs are 117-147g (1. 2-1.5 g/kg AdBW of 97.78kg) Fluid needs are 1.5L [ End ] Nutrition Intervention Change Diet Order: Continue TF via PEG Nutrition Support: Osmolite 1.5 at 65 ml/hr. Flush 200 ml q4h. Kcal 2,340 Protein (gm) 98 Fluid (mL) 1,189 Goal #1 Meet at least 75% of pt's energy and protein needs Goal #2 Weight maintenance Anticipated Discharge Needs: unable to determine at this time Follow-Up By: 03/02/20 Additional Comments FU for new TF miranda
[2020-02-29] MEDS: DIGOXIN 0.125 MG TAB PO SCH (16:17)
[2020-02-29] MEDS: POLYETHYLENE GLYCOL 3350 17 GM POWDER PO SCH (21:59)
[2020-02-29] MEDS: TAMSULOSIN 0.4 MG CAP PO SCH (22:02)
[2020-03-01] MEDS: INSULIN REGULAR, HUMAN 100 UNIT/ML 3ML VIAL SUB-Q SCH ×3 (06:00→18:16)
--- NOTE | 2020-03-01 09:10 | XRay Report ---
CHEST 1 VIEW INDICATION / CLINICAL INFORMATION: Follow up on pneumonia. COMPARISON: 02/18/2020 FINDINGS: SUPPORT DEVICES: Stable, satisfactory device positioning. HEART / MEDIASTINUM: Stable. LUNGS / PLEURA: Bilateral patchy and confluent airspace opacities with diffuse interstitial haziness. Findings are worst in the right lower lung and essentially unchanged when compared to the prior radi ograph from 02/18/2020. No pneumothorax. ADDITIONAL FINDINGS: No significant additional findings. IMPRESSION: 1. Essentially unchanged airspace disease when compared to 02/18/2020. Signer Name: Chaz Ramos MD Signed: 03/01/2020 9:05 AM Workstation Name: [id number]
[2020-03-01] MEDS: GLYCOPYRROLATE 2 MG TAB PO SCH ×3 (09:23→22:04)
--- NOTE | 2020-03-01 10:45 | Progress Note ---
Assessment and Plan Patient admitted for acute hypoxic respiratory failure, S/P tracheostomy.Patient awake. Resting on Pressure support mechanical ventilation, Pressure support 15, FIO2 30%, PEEP 6 and O2 saturation running 99%. ABG FIO2 30%. ABG pH 7.461 pH Units (7.350-7.450) H 02/20/20 06:45 POC ABG pCO2 34.8 mmHg (32.0-48.0) 02/11/20 14:11 ABG pCO2 47.8 mm Hg 02/20/20 06:45 POC ABG pO2 77.7 mmHg (83-108) L 02/11/20 14:11 ABG pO2 88.7 mm Hg (80.0-90.0) 02/20/20 06:45 POC ABG HCO3 26.7 02/11/20 14:11 ABG O2 Saturation 97.2 % (95.0-99.0) 02/20/20 06:45 Patient running low grade temp. No leukocytosis. Chest xray done 03/01/20 reported Essentially unchanged airspace disease when compared to 02/18/2020. Patient presently not on any antibiotics. Patient is on Apixaban and prevacid. I spent critical care time of 35 minutes on this patient review the chart, obtain history , examining the patient, review chest xray, labs, talking to the nursing staff and respiratory therapy and work out plan of treatment un this critically ill patient. - Patient Problems (1) Acute respiratory failure Current Visit: Yes Status: Acute Plan to address problem: Patient is on mechanical ventilation Pressure support 15, FIO2 30%, PEEP 6. Albuterol/atrovent aerosol treatments. Continue apixaban Recommend GI prophylaxis. (2) COPD exacerbation Current Visit: No Status: Acute Plan to address problem: Patient is on mechanical ventilation Pressure support 15, FIO2 30%, PEEP 6. Albuterol/atrovent aerosol treatments. Continue apixaban Recommend GI prophylaxis. (3) Bilateral pneumonia Current Visit: Yes Status: Acute Plan to address problem: Chest xray 03/01/20 Essentially unchanged airspace disease when compared to 02/18/2020. (4) CHF exacerbation Current Visit: Yes Status: Acute Plan to address problem: Management as per cardiology. (5) Cardiomyopathy Current Visit: Yes Status: Acute Plan to address problem: Management as per cardiology. (6) Pancreatic lesion Current Visit: Yes Status: Acute Plan to address problem: Management as per primary care. (7) Paroxysmal atrial fibrillation Current Visit: Yes Status: Acute Plan to address problem: Patient is on apixaban. Management as per cardiology. (8) CVA (cerebral vascular accident) Current Visit: No Status: Acute Qualifiers: Precerebral and cerebral artery: middle cerebral artery Laterality of affected vessel: right Plan to address problem: Management as per primary care. (9) Cocaine dependence Current Visit: No Status: Acute Plan to address problem: Management as per primary care. (10) HTN (hypertension) Current Visit: No Status: Acute Qualifiers: Hypertension type: essential hypertension Qualified Code(s): I10 - Essential (primary) hypertension Plan to address problem: Management as per primary care. (11) Nicotine dependence Current Visit: No Status: Acute Qualifiers: Nicotine product type: cigarettes Substance use status: in withdrawal Qualified Code(s): F17.213 - Nicotine dependence, cigarettes, with withdrawal Plan to address problem: Counseled to stop smoking. (12) Obesity hypoventilation syndrome Current Visit: No Status: Acute Plan to address problem: [place] S/P tracheostomy and on mechanical ventilation. Subjective Date of service: 03/01/20 Principal diagnosis: Ac hypoxemic resp failure; Pneumonia; PUI COVID-19; CHF; COPD; HTN Interval history: Patient admitted for acute hypoxic respiratory failure, S/P tracheostomy.Patient awake. Resting on Pressure support mechanical ventilation, Pressure support 15, FIO2 30%, PEEP 6 and O2 saturation running 99%. ABG FIO2 30%. ABG pH 7.461 pH Units (7.350-7.450) H 02/20/20 06:45 POC ABG pCO2 34.8 mmHg (32.0-48.0) 02/11/20 14:11 ABG pCO2 47.8 mm Hg 02/20/20 06:45 POC ABG pO2 77.7 mmHg (83-108) L 02/11/20 14:11 ABG pO2 88.7 mm Hg (80.0-90.0) 02/20/20 06:45 POC ABG HCO3 26.7 02/11/20 14:11 ABG O2 Saturation 97.2 % (95.0-99.0) 02/20/20 06:45 Patient running low grade temp. No leukocytosis. Chest xray done 03/01/20 reported Essentially unchanged airspace disease when compared to 02/18/2020. Patient presently not on any antibiotics. Patient is on Apixaban and prevacid. Objective Vital Signs - 12hr 02/29/20 03/01/20 03/01/20 23:00 00:00 01:00 Temperature 97.1 F L Pulse Rate 125 H 93 H 120 H Pulse Rate [ 93 H From Monitor] Respiratory 23 16 19 Rate Blood Pressure 113/81 126/84 114/66 O2 Sat by Pulse 96 94 93 Oximetry 03/01/20 03/01/20 03/01/20 02:00 03:00 03:56 Temperature Pulse Rate 100 H 92 H 108 H Pulse Rate [ From Monitor] Respiratory 27 H 27 H Rate Blood Pressure 100/80 95/65 102/70 O2 Sat by Pulse 94 94 98 Oximetry 03/01/20 03/01/20 03/01/20 04:00 05:00 06:00 Temperature Pulse Rate 122 H 114 H 104 H Pulse Rate [ 107 H From Monitor] Respiratory 26 H 21 17 Rate Blood Pressure 102/70 109/79 93/76 O2 Sat by Pulse 98 95 99 Oximetry 03/01/20 03/01/20 03/01/20 07:00 07:51 07:57 Temperature Pulse Rate 120 H 92 H 110 H Pulse Rate [ From Monitor] Respiratory 23 24 Rate Blood Pressure 93/76 107/89 107/89 O2 Sat by Pulse 96 96 100 Oximetry 03/01/20 03/01/20 03/01/20 08:00 09:00 10:00 Temperature 98.2 F Pulse Rate 117 H 136 H 130 H Pulse Rate [ 107 H From Monitor] Respiratory 18 24 37 H Rate Blood Pressure 119/71 119/71 121/93 O2 Sat by Pulse 97 97 99 Oximetry Constitutional: no acute distress, alert, other (Patient is resting on mechanical ventilation.) Eyes: non-icteric ENT: oropharynx moist, other (+ midline tracheostomy) Neck: supple, no JVD Effort: mildly labored Ascultation: Bilateral: diminished breath sounds, rhonchi (scant), other (mild tracheal secretions ) Percussion: Bilateral: not dull Cardiovascular: irregular rhythm Gastrointestinal: normoactive bowel sounds, soft, non-tender, non-distended (protuberant), other (protuberant; PEG in place) Integumentary: normal Extremities: no cyanosis, pulses normal, no ischemia or petechiae, edema (bilateral lower) Neurologic: non-focal exam (moves extremities), pupils equal and round, other (intermittent agitation) Psychiatric: mood appropriate, affect normal CBC and BMP: 02/22/20 08:06 02/22/20 08:06 ABG, PT/INR, D-dimer: ABG ABG pH 7.461 pH Units (7.350-7.450) H 02/20/20 06:45 POC ABG pCO2 34.8 mmHg (32.0-48.0) 02/11/20 14:11 ABG pCO2 47.8 mm Hg 02/20/20 06:45 POC ABG pO2 77.7 mmHg (83-108) L 02/11/20 14:11 ABG pO2 88.7 mm Hg (80.0-90.0) 02/20/20 06:45 POC ABG HCO3 26.7 02/11/20 14:11 ABG O2 Saturation 97.2 % (95.0-99.0) 02/20/20 06:45 PT/INR, D-dimer PT 27.0 Sec. (12.2-14.9) H 02/07/20 15:03 INR 2.46 (0.87-1.13) H 02/07/20 15:03 Abnormal lab findings: Abnormal Labs 11/24/19 11/24/19 11/24/19 02:53 02:53 03:45 WBC 14.3 H RBC Hgb Hct MCHC RDW 17.2 H MCV MCH Lymph % (Auto) [place] % (Auto) [place] # Eos # Lymph # (Auto) [place] # (Auto) Eos # (Auto) Seg Neutrophils % Seg Neuts % (Manual) Baso # (Auto) Lymphocytes % (Manual) Monocytes % (Manual) Eosinophils % (Manual) Basophils % (Manual) Seg Neutrophils # Seg Neutrophils # Man 8.3 H Lymphocytes # (Manual) Monocytes # (Manual) 0.9 H Eosinophils # (Manual) Nucleated RBC % Basophils # (Manual) PT INR APTT Heparin Anti-Xa Level ABG pH 7.313 L POC ABG pO2 ABG pO2 102.8 H ABG HCO3 ABG O2 Saturation ABG Base Excess -2.9 L POC ABG pCO2 ABG Hemoglobin ABG Oxyhemoglobin ABG Chloride ABG Glucose Oxyhemoglobin 93.9 L Sodium Potassium Chloride Carbon Dioxide BUN Creatinine Glucose 195 H POC Glucose Lactic Acid Calcium Phosphorus Magnesium AST ALT Lactate Dehydrogenase Total Bilirubin Direct Bilirubin CK-MB (CK-2) 4.3 H C-Reactive Protein NT-Pro-B Natriuret Pep 1181 H Total Protein Albumin Arterial Blood Glucose Urine WBC (Auto) Urine Creatinine 11/24/19 11/24/19 11/24/19 04:53 04:53 10:37 WBC RBC Hgb Hct MCHC RDW MCV MCH Lymph % (Auto) [place] % (Auto) [place] # Eos # Lymph # (Auto) [place] # (Auto) Eos # (Auto) Seg Neutrophils % Seg Neuts % (Manual) Baso # (Auto) Lymphocytes % (Manual) Monocytes % (Manual) Eosinophils % (Manual) Basophils % (Manual) Seg Neutrophils # Seg Neutrophils # Man Lymphocytes # (Manual) Monocytes # (Manual) Eosinophils # (Manual) Nucleated RBC % Basophils # (Manual) PT INR APTT Heparin Anti-Xa Level ABG pH POC ABG pO2 ABG pO2 ABG HCO3 ABG O2 Saturation ABG Base Excess POC ABG pCO2 ABG Hemoglobin ABG Oxyhemoglobin ABG Chloride ABG Glucose Oxyhemoglobin Sodium Potassium Chloride Carbon Dioxide BUN Creatinine Glucose 162 H POC Glucose Lactic Acid 2.40 H* 2.50 H* Calcium Phosphorus Magnesium AST ALT Lactate Dehydrogenase 240 H Total Bilirubin Direct Bilirubin CK-MB (CK-2) C-Reactive Protein NT-Pro-B Natriuret Pep Total Protein Albumin Arterial Blood Glucose Urine WBC (Auto) Urine Creatinine 11/24/19 11/24/19 11/24/19 12:21 14:50 19:54 WBC RBC Hgb Hct MCHC RDW MCV MCH Lymph % (Auto) [place] % (Auto) [place] # Eos # Lymph # (Auto) [place] # (Auto) Eos # (Auto) Seg Neutrophils % Seg Neuts % (Manual) Baso # (Auto) Lymphocytes % (Manual) Monocytes % (Manual) Eosinophils % (Manual) Basophils % (Manual) Seg Neutrophils # Seg Neutrophils # Man Lymphocytes # (Manual) Monocytes # (Manual) Eosinophils # (Manual) Nucleated RBC % Basophils # (Manual) PT INR APTT Heparin Anti-Xa Level ABG pH POC ABG pO2 ABG pO2 ABG HCO3 ABG O2 Saturation ABG Base Excess POC ABG pCO2 ABG Hemoglobin ABG Oxyhemoglobin ABG Chloride ABG Glucose Oxyhemoglobin Sodium Potassium Chloride Carbon Dioxide BUN Creatinine Glucose POC Glucose 145 H 143 H 124 H Lactic Acid Calcium Phosphorus Magnesium AST ALT Lactate Dehydrogenase Total Bilirubin Direct Bilirubin CK-MB (CK-2) C-Reactive Protein NT-Pro-B Natriuret Pep Total Protein Albumin Arterial Blood Glucose Urine WBC (Auto) Urine Creatinine 11/25/19 11/25/19 11/25/19 00:18 03:18 05:11 WBC 13.7 H RBC Hgb Hct MCHC RDW 17.1 H MCV MCH Lymph % (Auto) 10.8 L [place] % (Auto) 8.7 H [place] # 1.2 H Eos # Lymph # (Auto) [place] # (Auto) Eos # (Auto) Seg Neutrophils % 80.2 H Seg Neuts % (Manual) Baso # (Auto) Lymphocytes % (Manual) Monocytes % (Manual) Eosinophils % (Manual) Basophils % (Manual) Seg Neutrophils # 11.0 H Seg Neutrophils # Man Lymphocytes # (Manual) Monocytes # (Manual) Eosinophils # (Manual) Nucleated RBC % Basophils # (Manual) PT INR APTT Heparin Anti-Xa Level ABG pH 7.333 L POC ABG pO2 ABG pO2 61.2 L ABG HCO3 ABG O2 Saturation 90.2 L ABG Base Excess POC ABG pCO2 ABG Hemoglobin 13.7 L ABG Oxyhemoglobin ABG Chloride ABG Glucose Oxyhemoglobin 88.2 L Sodium Potassium Chloride Carbon Dioxide BUN Creatinine Glucose POC Glucose 109 H Lactic Acid Calcium Phosphorus Magnesium AST ALT Lactate Dehydrogenase Total Bilirubin Direct Bilirubin CK-MB (CK-2) C-Reactive Protein NT-Pro-B Natriuret Pep Total Protein Albumin Arterial Blood Glucose Urine WBC (Auto) Urine Creatinine 11/25/19 11/25/19 11/26/19 05:11 11:40 03:12 WBC RBC Hgb Hct MCHC RDW MCV MCH Lymph % (Auto) [place] % (Auto) [place] # Eos # Lymph # (Auto) [place] # (Auto) Eos # (Auto) Seg Neutrophils % Seg Neuts % (Manual) Baso # (Auto) Lymphocytes % (Manual) Monocytes % (Manual) Eosinophils % (Manual) Basophils % (Manual) Seg Neutrophils # Seg Neutrophils # Man Lymphocytes # (Manual) Monocytes # (Manual) Eosinophils # (Manual) Nucleated RBC % Basophils # (Manual) PT INR APTT Heparin Anti-Xa Level ABG pH POC ABG pO2 ABG pO2 155.1 H ABG HCO3 27.8 H ABG O2 Saturation ABG Base Excess POC ABG pCO2 ABG Hemoglobin 12.2 L ABG Oxyhemoglobin ABG Chloride ABG Glucose Oxyhemoglobin Sodium Potassium Chloride Carbon Dioxide BUN 23 H Creatinine Glucose 110 H POC Glucose 108 H Lactic Acid Calcium Phosphorus Magnesium AST ALT Lactate Dehydrogenase Total Bilirubin Direct Bilirubin CK-MB (CK-2) C-Reactive Protein NT-Pro-B Natriuret Pep Total Protein Albumin Arterial Blood Glucose Urine WBC (Auto) Urine Creatinine 11/26/19 11/26/19 11/26/19 06:17 10:43 10:43 WBC 11.4 H RBC Hgb Hct MCHC RDW 17.1 H MCV MCH Lymph % (Auto) [place] % (Auto) [place] # Eos # Lymph # (Auto) [place] # (Auto) Eos # (Auto) Seg Neutrophils % Seg Neuts % (Manual) Baso # (Auto) Lymphocytes % (Manual) Monocytes % (Manual) Eosinophils % (Manual) Basophils % (Manual) Seg Neutrophils # Seg Neutrophils # Man Lymphocytes # (Manual) Monocytes # (Manual) Eosinophils # (Manual) Nucleated RBC % Basophils # (Manual) PT INR APTT Heparin Anti-Xa Level ABG pH POC ABG pO2 ABG pO2 ABG HCO3 ABG O2 Saturation ABG Base Excess POC ABG pCO2 ABG Hemoglobin ABG Oxyhemoglobin ABG Chloride ABG Glucose Oxyhemoglobin Sodium Potassium Chloride Carbon Dioxide BUN 29 H Creatinine Glucose POC Glucose 107 H Lactic Acid Calcium Phosphorus Magnesium AST ALT Lactate Dehydrogenase Total Bilirubin Direct Bilirubin CK-MB (CK-2) C-Reactive Protein NT-Pro-B Natriuret Pep Total Protein Albumin Arterial Blood Glucose Urine WBC (Auto) Urine Creatinine 11/26/19 11/27/19 11/27/19 17:11 01:53 04:11 WBC RBC Hgb Hct MCHC RDW MCV MCH Lymph % (Auto) [place] % (Auto) [place] # Eos # Lymph # (Auto) [place] # (Auto) Eos # (Auto) Seg Neutrophils % Seg Neuts % (Manual) Baso # (Auto) Lymphocytes % (Manual) Monocytes % (Manual) Eosinophils % (Manual) Basophils % (Manual) Seg Neutrophils # Seg Neutrophils # Man Lymphocytes # (Manual) Monocytes # (Manual) Eosinophils # (Manual) Nucleated RBC % Basophils # (Manual) PT INR APTT Heparin Anti-Xa Level ABG pH POC ABG pO2 ABG pO2 ABG HCO3 29.2 H ABG O2 Saturation ABG Base Excess 3.4 H POC ABG pCO2 ABG Hemoglobin 13.3 L ABG Oxyhemoglobin ABG Chloride ABG Glucose Oxyhemoglobin 94.5 L Sodium Potassium Chloride Carbon Dioxide BUN Creatinine Glucose POC Glucose 113 H 108 H Lactic Acid Calcium Phosphorus Magnesium AST ALT Lactate Dehydrogenase Total Bilirubin Direct Bilirubin CK-MB (CK-2) C-Reactive Protein NT-Pro-B Natriuret Pep Total Protein Albumin Arterial Blood Glucose Urine WBC (Auto) Urine Creatinine 11/27/19 11/28/19 11/28/19 05:27 05:00 05:25 WBC RBC Hgb Hct MCHC RDW MCV MCH Lymph % (Auto) [place] % (Auto) [place] # Eos # Lymph # (Auto) [place] # (Auto) Eos # (Auto) Seg Neutrophils % Seg Neuts % (Manual) Baso # (Auto) Lymphocytes % (Manual) Monocytes % (Manual) Eosinophils % (Manual) Basophils % (Manual) Seg Neutrophils # Seg Neutrophils # Man Lymphocytes # (Manual) Monocytes # (Manual) Eosinophils # (Manual) Nucleated RBC % Basophils # (Manual) PT INR APTT Heparin Anti-Xa Level ABG pH POC ABG pO2 68.1 L ABG pO2 ABG HCO3 ABG O2 Saturation ABG Base Excess POC ABG pCO2 ABG Hemoglobin ABG Oxyhemoglobin 91.2 L ABG Chloride ABG Glucose Oxyhemoglobin Sodium Potassium Chloride Carbon Dioxide BUN Creatinine Glucose POC Glucose 111 H 110 H Lactic Acid Calcium Phosphorus Magnesium AST ALT Lactate Dehydrogenase Total Bilirubin Direct Bilirubin CK-MB (CK-2) C-Reactive Protein NT-Pro-B Natriuret Pep Total Protein Albumin Arterial Blood Glucose Urine WBC (Auto) Urine Creatinine 11/28/19 11/28/19 11/28/19 12:08 13:47 13:47 WBC 11.3 H RBC Hgb Hct MCHC RDW 16.1 H MCV MCH Lymph % (Auto) [place] % (Auto) 9.9 H [place] # 1.1 H Eos # Lymph # (Auto) [place] # (Auto) Eos # (Auto) Seg Neutrophils % 71.4 H Seg Neuts % (Manual) Baso # (Auto) Lymphocytes % (Manual) Monocytes % (Manual) Eosinophils % (Manual) Basophils % (Manual) Seg Neutrophils # 8.1 H Seg Neutrophils # Man Lymphocytes # (Manual) Monocytes # (Manual) Eosinophils # (Manual) Nucleated RBC % Basophils # (Manual) PT INR APTT Heparin Anti-Xa Level ABG pH POC ABG pO2 ABG pO2 ABG HCO3 ABG O2 Saturation ABG Base Excess POC ABG pCO2 ABG Hemoglobin ABG Oxyhemoglobin ABG Chloride ABG Glucose Oxyhemoglobin Sodium Potassium Chloride Carbon Dioxide BUN 23 H Creatinine Glucose 123 H POC Glucose 112 H Lactic Acid Calcium Phosphorus Magnesium AST ALT Lactate Dehydrogenase Total Bilirubin Direct Bilirubin CK-MB (CK-2) C-Reactive Protein NT-Pro-B Natriuret Pep Total Protein Albumin 3.7 L Arterial Blood Glucose Urine WBC (Auto) Urine Creatinine 11/28/19 11/29/19 11/29/19 17:26 03:55 17:04 WBC RBC Hgb Hct MCHC RDW MCV MCH Lymph % (Auto) [place] % (Auto) [place] # Eos # Lymph # (Auto) [place] # (Auto) Eos # (Auto) Seg Neutrophils % Seg Neuts % (Manual) Baso # (Auto) Lymphocytes % (Manual) Monocytes % (Manual) Eosinophils % (Manual) Basophils % (Manual) Seg Neutrophils # Seg Neutrophils # Man Lymphocytes # (Manual) Monocytes # (Manual) Eosinophils # (Manual) Nucleated RBC % Basophils # (Manual) PT INR APTT Heparin Anti-Xa Level ABG pH POC ABG pO2 ABG pO2 65.7 L ABG HCO3 28.3 H ABG O2 Saturation 93.9 L ABG Base Excess 3.6 H POC ABG pCO2 ABG Hemoglobin 13.3 L ABG Oxyhemoglobin ABG Chloride ABG Glucose Oxyhemoglobin 91.5 L Sodium Potassium Chloride Carbon Dioxide BUN Creatinine Glucose POC Glucose 123 H 119 H Lactic Acid Calcium Phosphorus Magnesium AST ALT Lactate Dehydrogenase Total Bilirubin Direct Bilirubin CK-MB (CK-2) C-Reactive Protein NT-Pro-B Natriuret Pep Total Protein Albumin Arterial Blood Glucose Urine WBC (Auto) Urine Creatinine 11/30/19 11/30/19 11/30/19 04:17 04:17 04:56 WBC 13.4 H RBC Hgb Hct MCHC RDW 15.6 H MCV MCH Lymph % (Auto) [place] % (Auto) [place] # Eos # Lymph # (Auto) [place] # (Auto) Eos # (Auto) Seg Neutrophils % Seg Neuts % (Manual) Baso # (Auto) Lymphocytes % (Manual) Monocytes % (Manual) Eosinophils % (Manual) Basophils % (Manual) Seg Neutrophils # Seg Neutrophils # Man Lymphocytes # (Manual) Monocytes # (Manual) Eosinophils # (Manual) Nucleated RBC % Basophils # (Manual) PT INR APTT Heparin Anti-Xa Level ABG pH POC ABG pO2 ABG pO2 56.3 L ABG HCO3 29.3 H ABG O2 Saturation 91.5 L ABG Base Excess 4.7 H POC ABG pCO2 ABG Hemoglobin 12.1 L ABG Oxyhemoglobin ABG Chloride ABG Glucose Oxyhemoglobin 89.2 L Sodium 147 H Potassium Chloride Carbon Dioxide BUN 30 H Creatinine Glucose 124 H POC Glucose Lactic Acid Calcium Phosphorus Magnesium AST ALT Lactate Dehydrogenase Total Bilirubin Direct Bilirubin CK-MB (CK-2) C-Reactive Protein NT-Pro-B Natriuret Pep Total Protein Albumin 3.8 L Arterial Blood Glucose Urine WBC (Auto) Urine Creatinine 11/30/19 11/30/19 11/30/19 05:51 11:54 18:17 WBC RBC Hgb Hct MCHC RDW MCV MCH Lymph % (Auto) [place] % (Auto) [place] # Eos # Lymph # (Auto) [place] # (Auto) Eos # (Auto) Seg Neutrophils % Seg Neuts % (Manual) Baso # (Auto) Lymphocytes % (Manual) Monocytes % (Manual) Eosinophils % (Manual) Basophils % (Manual) Seg Neutrophils # Seg Neutrophils # Man Lymphocytes # (Manual) Monocytes # (Manual) Eosinophils # (Manual) Nucleated RBC % Basophils # (Manual) PT INR APTT Heparin Anti-Xa Level ABG pH POC ABG pO2 ABG pO2 ABG HCO3 ABG O2 Saturation ABG Base Excess POC ABG pCO2 ABG Hemoglobin ABG Oxyhemoglobin ABG Chloride ABG Glucose Oxyhemoglobin Sodium Potassium Chloride Carbon Dioxide BUN Creatinine Glucose POC Glucose 127 H 115 H 143 H Lactic Acid Calcium Phosphorus Magnesium AST ALT Lactate Dehydrogenase Total Bilirubin Direct Bilirubin CK-MB (CK-2) C-Reactive Protein NT-Pro-B Natriuret Pep Total Protein Albumin Arterial Blood Glucose Urine WBC (Auto) Urine Creatinine 12/01/19 12/01/19 12/01/19 01:18 05:22 12:16 WBC RBC Hgb Hct MCHC RDW MCV MCH Lymph % (Auto) [place] % (Auto) [place] # Eos # Lymph # (Auto) [place] # (Auto) Eos # (Auto) Seg Neutrophils % Seg Neuts % (Manual) Baso # (Auto) Lymphocytes % (Manual) Monocytes % (Manual) Eosinophils % (Manual) Basophils % (Manual) Seg Neutrophils # Seg Neutrophils # Man Lymphocytes # (Manual) Monocytes # (Manual) Eosinophils # (Manual) Nucleated RBC % Basophils # (Manual) PT INR APTT Heparin Anti-Xa Level ABG pH POC ABG pO2 ABG pO2 ABG HCO3 ABG O2 Saturation ABG Base Excess POC ABG pCO2 ABG Hemoglobin ABG Oxyhemoglobin ABG Chloride ABG Glucose Oxyhemoglobin Sodium Potassium 3.5 L Chloride 107.8 H Carbon Dioxide BUN 37 H Creatinine Glucose 157 H POC Glucose 118 H 148 H Lactic Acid Calcium 8.2 L D Phosphorus Magnesium AST 48 H ALT 60 H Lactate Dehydrogenase 194 H Total Bilirubin Direct Bilirubin CK-MB (CK-2) C-Reactive Protein 8.50 H NT-Pro-B Natriuret Pep Total Protein 5.5 L Albumin 2.8 L Arterial Blood Glucose Urine WBC (Auto) Urine Creatinine 12/01/19 12/02/19 12/02/19 18:04 00:05 05:16 WBC 11.4 H RBC Hgb Hct MCHC RDW 15.9 H MCV MCH Lymph % (Auto) [place] % (Auto) 9.9 H [place] # 1.1 H Eos # Lymph # (Auto) [place] # (Auto) Eos # (Auto) Seg Neutrophils % 70.3 H Seg Neuts % (Manual) Baso # (Auto) Lymphocytes % (Manual) Monocytes % (Manual) Eosinophils % (Manual) Basophils % (Manual) Seg Neutrophils # 8.0 H Seg Neutrophils # Man Lymphocytes # (Manual) Monocytes # (Manual) Eosinophils # (Manual) Nucleated RBC % Basophils # (Manual) PT INR APTT Heparin Anti-Xa Level ABG pH POC ABG pO2 ABG pO2 ABG HCO3 ABG O2 Saturation ABG Base Excess POC ABG pCO2 ABG Hemoglobin ABG Oxyhemoglobin ABG Chloride ABG Glucose Oxyhemoglobin Sodium Potassium Chloride Carbon Dioxide BUN Creatinine Glucose POC Glucose 143 H 107 H Lactic Acid Calcium Phosphorus Magnesium AST ALT Lactate Dehydrogenase Total Bilirubin Direct Bilirubin CK-MB (CK-2) C-Reactive Protein NT-Pro-B Natriuret Pep Total Protein Albumin Arterial Blood Glucose Urine WBC (Auto) Urine Creatinine 12/02/19 12/02/19 12/02/19 05:16 06:03 11:52 WBC RBC Hgb Hct MCHC RDW MCV MCH Lymph % (Auto) [place] % (Auto) [place] # Eos # Lymph # (Auto) [place] # (Auto) Eos # (Auto) Seg Neutrophils % Seg Neuts % (Manual) Baso # (Auto) Lymphocytes % (Manual) Monocytes % (Manual) Eosinophils % (Manual) Basophils % (Manual) Seg Neutrophils # Seg Neutrophils # Man Lymphocytes # (Manual) Monocytes # (Manual) Eosinophils # (Manual) Nucleated RBC % Basophils # (Manual) PT INR APTT Heparin Anti-Xa Level ABG pH POC ABG pO2 ABG pO2 ABG HCO3 ABG O2 Saturation ABG Base Excess POC ABG pCO2 ABG Hemoglobin ABG Oxyhemoglobin ABG Chloride ABG Glucose Oxyhemoglobin Sodium 146 H Potassium Chloride Carbon Dioxide BUN 28 H Creatinine Glucose 123 H POC Glucose 110 H 152 H Lactic Acid Calcium Phosphorus Magnesium AST ALT Lactate Dehydrogenase Total Bilirubin Direct Bilirubin CK-MB (CK-2) C-Reactive Protein NT-Pro-B Natriuret Pep Total Protein Albumin Arterial Blood Glucose Urine WBC (Auto) Urine Creatinine 12/02/19 12/02/19 12/02/19 12:58 17:58 23:36 WBC RBC Hgb Hct MCHC RDW MCV MCH Lymph % (Auto) [place] % (Auto) [place] # Eos # Lymph # (Auto) [place] # (Auto) Eos # (Auto) Seg Neutrophils % Seg Neuts % (Manual) Baso # (Auto) Lymphocytes % (Manual) Monocytes % (Manual) Eosinophils % (Manual) Basophils % (Manual) Seg Neutrophils # Seg Neutrophils # Man Lymphocytes # (Manual) Monocytes # (Manual) Eosinophils # (Manual) Nucleated RBC % Basophils # (Manual) PT INR APTT Heparin Anti-Xa Level ABG pH POC ABG pO2 78.1 L ABG pO2 ABG HCO3 ABG O2 Saturation ABG Base Excess POC ABG pCO2 ABG Hemoglobin ABG Oxyhemoglobin ABG Chloride ABG Glucose Oxyhemoglobin Sodium Potassium Chloride Carbon Dioxide BUN Creatinine Glucose POC Glucose 120 H 123 H Lactic Acid Calcium Phosphorus Magnesium AST ALT Lactate Dehydrogenase Total Bilirubin Direct Bilirubin CK-MB (CK-2) C-Reactive Protein NT-Pro-B Natriuret Pep Total Protein Albumin Arterial Blood Glucose Urine WBC (Auto) Urine Creatinine 12/03/19 12/03/19 12/03/19 06:03 06:14 11:46 WBC RBC Hgb Hct MCHC RDW MCV MCH Lymph % (Auto) [place] % (Auto) [place] # Eos # Lymph # (Auto) [place] # (Auto) Eos # (Auto) Seg Neutrophils % Seg Neuts % (Manual) Baso # (Auto) Lymphocytes % (Manual) Monocytes % (Manual) Eosinophils % (Manual) Basophils % (Manual) Seg Neutrophils # Seg Neutrophils # Man Lymphocytes # (Manual) Monocytes # (Manual) Eosinophils # (Manual) Nucleated RBC % Basophils # (Manual) PT INR APTT Heparin Anti-Xa Level ABG pH POC ABG pO2 ABG pO2 ABG HCO3 ABG O2 Saturation ABG Base Excess POC ABG pCO2 ABG Hemoglobin ABG Oxyhemoglobin ABG Chloride ABG Glucose Oxyhemoglobin Sodium Potassium Chloride Carbon Dioxide BUN Creatinine Glucose POC Glucose 142 H 130 H Lactic Acid Calcium Phosphorus Magnesium AST ALT Lactate Dehydrogenase Total Bilirubin Direct Bilirubin CK-MB (CK-2) C-Reactive Protein NT-Pro-B Natriuret Pep Total Protein Albumin Arterial Blood Glucose Urine WBC (Auto) 8.0 H Urine Creatinine 12/03/19 12/03/19 12/04/19 15:50 17:39 00:04 WBC RBC Hgb Hct MCHC RDW MCV MCH Lymph % (Auto) [place] % (Auto) [place] # Eos # Lymph # (Auto) [place] # (Auto) Eos # (Auto) Seg Neutrophils % Seg Neuts % (Manual) Baso # (Auto) Lymphocytes % (Manual) Monocytes % (Manual) Eosinophils % (Manual) Basophils % (Manual) Seg Neutrophils # Seg Neutrophils # Man Lymphocytes # (Manual) Monocytes # (Manual) Eosinophils # (Manual) Nucleated RBC % Basophils # (Manual) PT INR APTT Heparin Anti-Xa Level ABG pH POC ABG pO2 ABG pO2 ABG HCO3 ABG O2 Saturation ABG Base Excess POC ABG pCO2 ABG Hemoglobin ABG Oxyhemoglobin ABG Chloride ABG Glucose Oxyhemoglobin Sodium Potassium Chloride Carbon Dioxide BUN Creatinine Glucose POC Glucose 146 H 133 H Lactic Acid Calcium Phosphorus 2.40 L Magnesium AST ALT Lactate Dehydrogenase Total Bilirubin Direct Bilirubin CK-MB (CK-2) C-Reactive Protein NT-Pro-B Natriuret Pep Total Protein Albumin Arterial Blood Glucose Urine WBC (Auto) Urine Creatinine 12/04/19 12/04/19 12/04/19 03:58 03:58 05:22 WBC 12.5 H RBC Hgb 11.2 L Hct 35.2 L MCHC RDW 16.0 H MCV MCH Lymph % (Auto) [place] % (Auto) 9.6 H [place] # 1.2 H Eos # 0.5 H Lymph # (Auto) [place] # (Auto) Eos # (Auto) Seg Neutrophils % Seg Neuts % (Manual) Baso # (Auto) Lymphocytes % (Manual) Monocytes % (Manual) Eosinophils % (Manual) Basophils % (Manual) Seg Neutrophils # 8.6 H Seg Neutrophils # Man Lymphocytes # (Manual) Monocytes # (Manual) Eosinophils # (Manual) Nucleated RBC % Basophils # (Manual) PT INR APTT Heparin Anti-Xa Level ABG pH POC ABG pO2 ABG pO2 ABG HCO3 ABG O2 Saturation ABG Base Excess POC ABG pCO2 ABG Hemoglobin ABG Oxyhemoglobin ABG Chloride ABG Glucose Oxyhemoglobin Sodium 146 H Potassium Chloride 108.6 H Carbon Dioxide BUN 30 H Creatinine 0.7 L Glucose 121 H POC Glucose 132 H Lactic Acid Calcium Phosphorus Magnesium AST ALT Lactate Dehydrogenase Total Bilirubin Direct Bilirubin CK-MB (CK-2) C-Reactive Protein NT-Pro-B Natriuret Pep Total Protein Albumin Arterial Blood Glucose Urine WBC (Auto) Urine Creatinine 12/04/19 12/04/19 12/05/19 13:26 18:43 00:19 WBC RBC Hgb Hct MCHC RDW MCV MCH Lymph % (Auto) [place] % (Auto) [place] # Eos # Lymph # (Auto) [place] # (Auto) Eos # (Auto) Seg Neutrophils % Seg Neuts % (Manual) Baso # (Auto) Lymphocytes % (Manual) Monocytes % (Manual) Eosinophils % (Manual) Basophils % (Manual) Seg Neutrophils # Seg Neutrophils # Man Lymphocytes # (Manual) Monocytes # (Manual) Eosinophils # (Manual) Nucleated RBC % Basophils # (Manual) PT INR APTT Heparin Anti-Xa Level ABG pH POC ABG pO2 ABG pO2 ABG HCO3 ABG O2 Saturation ABG Base Excess POC ABG pCO2 ABG Hemoglobin ABG Oxyhemoglobin ABG Chloride ABG Glucose Oxyhemoglobin Sodium Potassium Chloride Carbon Dioxide BUN Creatinine Glucose POC Glucose 185 H 156 H 150 H Lactic Acid Calcium Phosphorus Magnesium AST ALT Lactate Dehydrogenase Total Bilirubin Direct Bilirubin CK-MB (CK-2) C-Reactive Protein NT-Pro-B Natriuret Pep Total Protein Albumin Arterial Blood Glucose Urine WBC (Auto) Urine Creatinine 12/05/19 12/05/19 12/05/19 03:37 03:37 05:14 WBC 16.3 H RBC Hgb 11.4 L Hct MCHC RDW 15.6 H MCV MCH Lymph % (Auto) 9.9 L [place] % (Auto) 9.7 H [place] # 1.6 H Eos # Lymph # (Auto) [place] # (Auto) Eos # (Auto) Seg Neutrophils % 78.0 H Seg Neuts % (Manual) Baso # (Auto) Lymphocytes % (Manual) Monocytes % (Manual) Eosinophils % (Manual) Basophils % (Manual) Seg Neutrophils # 12.7 H Seg Neutrophils # Man Lymphocytes # (Manual) Monocytes # (Manual) Eosinophils # (Manual) Nucleated RBC % Basophils # (Manual) PT INR APTT Heparin Anti-Xa Level ABG pH POC ABG pO2 ABG pO2 ABG HCO3 ABG O2 Saturation ABG Base Excess POC ABG pCO2 ABG Hemoglobin ABG Oxyhemoglobin ABG Chloride ABG Glucose Oxyhemoglobin Sodium 146 H Potassium Chloride 107.2 H Carbon Dioxide BUN 27 H Creatinine 0.7 L Glucose 171 H POC Glucose 168 H Lactic Acid Calcium Phosphorus Magnesium AST ALT Lactate Dehydrogenase Total Bilirubin Direct Bilirubin CK-MB (CK-2) C-Reactive Protein NT-Pro-B Natriuret Pep Total Protein Albumin Arterial Blood Glucose Urine WBC (Auto) Urine Creatinine 12/05/19 12/05/19 12/05/19 12:31 18:10 23:58 WBC RBC Hgb Hct MCHC RDW MCV MCH Lymph % (Auto) [place] % (Auto) [place] # Eos # Lymph # (Auto) [place] # (Auto) Eos # (Auto) Seg Neutrophils % Seg Neuts % (Manual) Baso # (Auto) Lymphocytes % (Manual) Monocytes % (Manual) Eosinophils % (Manual) Basophils % (Manual) Seg Neutrophils # Seg Neutrophils # Man Lymphocytes # (Manual) Monocytes # (Manual) Eosinophils # (Manual) Nucleated RBC % Basophils # (Manual) PT INR APTT Heparin Anti-Xa Level ABG pH POC ABG pO2 ABG pO2 ABG HCO3 ABG O2 Saturation ABG Base Excess POC ABG pCO2 ABG Hemoglobin ABG Oxyhemoglobin ABG Chloride ABG Glucose Oxyhemoglobin Sodium Potassium Chloride Carbon Dioxide BUN Creatinine Glucose POC Glucose 159 H 198 H 115 H Lactic Acid Calcium Phosphorus Magnesium AST ALT Lactate Dehydrogenase Total Bilirubin Direct Bilirubin CK-MB (CK-2) C-Reactive Protein NT-Pro-B Natriuret Pep Total Protein Albumin Arterial Blood Glucose Urine WBC (Auto) Urine Creatinine 12/06/19 12/06/19 12/06/19 05:24 05:24 05:25 WBC 14.9 H RBC Hgb 10.8 L Hct 34.0 L MCHC RDW 15.6 H MCV MCH Lymph % (Auto) 10.7 L [place] % (Auto) 8.3 H [place] # 1.2 H Eos # Lymph # (Auto) [place] # (Auto) Eos # (Auto) Seg Neutrophils % 78.7 H Seg Neuts % (Manual) Baso # (Auto) Lymphocytes % (Manual) Monocytes % (Manual) Eosinophils % (Manual) Basophils % (Manual) Seg Neutrophils # 11.7 H Seg Neutrophils # Man Lymphocytes # (Manual) Monocytes # (Manual) Eosinophils # (Manual) Nucleated RBC % Basophils # (Manual) PT INR APTT Heparin Anti-Xa Level ABG pH POC ABG pO2 ABG pO2 ABG HCO3 ABG O2 Saturation ABG Base Excess POC ABG pCO2 ABG Hemoglobin ABG Oxyhemoglobin ABG Chloride ABG Glucose Oxyhemoglobin Sodium 148 H Potassium 5.1 H Chloride 107.6 H Carbon Dioxide BUN 27 H Creatinine 0.7 L Glucose 155 H POC Glucose 157 H Lactic Acid Calcium Phosphorus Magnesium AST ALT Lactate Dehydrogenase Total Bilirubin Direct Bilirubin CK-MB (CK-2) C-Reactive Protein NT-Pro-B Natriuret Pep Total Protein Albumin Arterial Blood Glucose Urine WBC (Auto) Urine Creatinine 12/07/19 12/07/19 12/07/19 00:13 05:34 11:33 WBC RBC Hgb Hct MCHC RDW MCV MCH Lymph % (Auto) [place] % (Auto) [place] # Eos # Lymph # (Auto) [place] # (Auto) Eos # (Auto) Seg Neutrophils % Seg Neuts % (Manual) Baso # (Auto) Lymphocytes % (Manual) Monocytes % (Manual) Eosinophils % (Manual) Basophils % (Manual) Seg Neutrophils # Seg Neutrophils # Man Lymphocytes # (Manual) Monocytes # (Manual) Eosinophils # (Manual) Nucleated RBC % Basophils # (Manual) PT INR APTT Heparin Anti-Xa Level ABG pH POC ABG pO2 ABG pO2 ABG HCO3 ABG O2 Saturation ABG Base Excess POC ABG pCO2 ABG Hemoglobin ABG Oxyhemoglobin ABG Chloride ABG Glucose Oxyhemoglobin Sodium Potassium Chloride Carbon Dioxide BUN Creatinine Glucose POC Glucose 142 H 111 H 169 H Lactic Acid Calcium Phosphorus Magnesium AST ALT Lactate Dehydrogenase Total Bilirubin Direct Bilirubin CK-MB (CK-2) C-Reactive Protein NT-Pro-B Natriuret Pep Total Protein Albumin Arterial Blood Glucose Urine WBC (Auto) Urine Creatinine 12/07/19 12/07/19 12/07/19 12:41 13:25 18:19 WBC 12.4 H RBC 3.53 L Hgb 10.2 L Hct 32.1 L MCHC RDW 15.3 H MCV MCH Lymph % (Auto) 10.6 L [place] % (Auto) 7.8 H [place] # 1.0 H Eos # Lymph # (Auto) [place] # (Auto) Eos # (Auto) Seg Neutrophils % 77.6 H Seg Neuts % (Manual) Baso # (Auto) Lymphocytes % (Manual) Monocytes % (Manual) Eosinophils % (Manual) Basophils % (Manual) Seg Neutrophils # 9.6 H Seg Neutrophils # Man Lymphocytes # (Manual) Monocytes # (Manual) Eosinophils # (Manual) Nucleated RBC % Basophils # (Manual) PT INR APTT Heparin Anti-Xa Level ABG pH POC ABG pO2 ABG pO2 ABG HCO3 ABG O2 Saturation ABG Base Excess POC ABG pCO2 ABG Hemoglobin ABG Oxyhemoglobin ABG Chloride ABG Glucose Oxyhemoglobin Sodium 149 H Potassium Chloride 108.4 H Carbon Dioxide BUN 26 H Creatinine 0.6 L Glucose 149 H POC Glucose 164 H Lactic Acid Calcium Phosphorus Magnesium 2.60 H AST 121 H ALT 145 H Lactate Dehydrogenase Total Bilirubin Direct Bilirubin CK-MB (CK-2) C-Reactive Protein NT-Pro-B Natriuret Pep Total Protein Albumin 2.6 L Arterial Blood Glucose Urine WBC (Auto) Urine Creatinine 12/07/19 12/08/19 12/08/19 22:25 00:02 03:55 WBC 13.3 H RBC 3.40 L Hgb 9.7 L Hct 30.8 L MCHC 31 L RDW 15.5 H MCV MCH Lymph % (Auto) [place] % (Auto) 8.1 H [place] # 1.1 H Eos # Lymph # (Auto) [place] # (Auto) Eos # (Auto) Seg Neutrophils % 73.0 H Seg Neuts % (Manual) Baso # (Auto) Lymphocytes % (Manual) Monocytes % (Manual) Eosinophils % (Manual) Basophils % (Manual) Seg Neutrophils # 9.7 H Seg Neutrophils # Man Lymphocytes # (Manual) Monocytes # (Manual) Eosinophils # (Manual) Nucleated RBC % Basophils # (Manual) PT INR APTT Heparin Anti-Xa Level 0.12 L ABG pH POC ABG pO2 ABG pO2 ABG HCO3 ABG O2 Saturation ABG Base Excess POC ABG pCO2 ABG Hemoglobin ABG Oxyhemoglobin ABG Chloride ABG Glucose Oxyhemoglobin Sodium Potassium Chloride Carbon Dioxide BUN Creatinine Glucose POC Glucose 151 H Lactic Acid Calcium Phosphorus Magnesium AST ALT Lactate Dehydrogenase Total Bilirubin Direct Bilirubin CK-MB (CK-2) C-Reactive Protein NT-Pro-B Natriuret Pep Total Protein Albumin Arterial Blood Glucose Urine WBC (Auto) Urine Creatinine 12/08/19 12/08/19 12/08/19 03:55 05:21 06:01 WBC RBC Hgb Hct MCHC RDW MCV MCH Lymph % (Auto) [place] % (Auto) [place] # Eos # Lymph # (Auto) [place] # (Auto) Eos # (Auto) Seg Neutrophils % Seg Neuts % (Manual) Baso # (Auto) Lymphocytes % (Manual) Monocytes % (Manual) Eosinophils % (Manual) Basophils % (Manual) Seg Neutrophils # Seg Neutrophils # Man Lymphocytes # (Manual) Monocytes # (Manual) Eosinophils # (Manual) Nucleated RBC % Basophils # (Manual) PT INR APTT Heparin Anti-Xa Level 0.20 L ABG pH POC ABG pO2 ABG pO2 ABG HCO3 ABG O2 Saturation ABG Base Excess POC ABG pCO2 ABG Hemoglobin ABG Oxyhemoglobin ABG Chloride ABG Glucose Oxyhemoglobin Sodium 149 H Potassium Chloride 108.0 H Carbon Dioxide BUN 28 H Creatinine 0.6 L Glucose 144 H POC Glucose 143 H Lactic Acid Calcium Phosphorus Magnesium AST 98 H ALT 145 H Lactate Dehydrogenase Total Bilirubin Direct Bilirubin CK-MB (CK-2) C-Reactive Protein NT-Pro-B Natriuret Pep Total Protein 6.0 L Albumin 2.4 L Arterial Blood Glucose Urine WBC (Auto) Urine Creatinine 12/08/19 12/08/19 12/08/19 12:08 18:11 23:53 WBC RBC Hgb Hct MCHC RDW MCV MCH Lymph % (Auto) [place] % (Auto) [place] # Eos # Lymph # (Auto) [place] # (Auto) Eos # (Auto) Seg Neutrophils % Seg Neuts % (Manual) Baso # (Auto) Lymphocytes % (Manual) Monocytes % (Manual) Eosinophils % (Manual) Basophils % (Manual) Seg Neutrophils # Seg Neutrophils # Man Lymphocytes # (Manual) Monocytes # (Manual) Eosinophils # (Manual) Nucleated RBC % Basophils # (Manual) PT INR APTT Heparin Anti-Xa Level ABG pH POC ABG pO2 ABG pO2 ABG HCO3 ABG O2 Saturation ABG Base Excess POC ABG pCO2 ABG Hemoglobin ABG Oxyhemoglobin ABG Chloride ABG Glucose Oxyhemoglobin Sodium Potassium Chloride Carbon Dioxide BUN Creatinine Glucose POC Glucose 172 H 122 H 162 H Lactic Acid Calcium Phosphorus Magnesium AST ALT Lactate Dehydrogenase Total Bilirubin Direct Bilirubin CK-MB (CK-2) C-Reactive Protein NT-Pro-B Natriuret Pep Total Protein Albumin Arterial Blood Glucose Urine WBC (Auto) Urine Creatinine 12/09/19 12/09/19 12/09/19 04:03 04:03 05:53 WBC RBC Hgb 9.1 L Hct 28.9 L MCHC RDW MCV MCH Lymph % (Auto) [place] % (Auto) [place] # Eos # Lymph # (Auto) [place] # (Auto) Eos # (Auto) Seg Neutrophils % Seg Neuts % (Manual) Baso # (Auto) Lymphocytes % (Manual) Monocytes % (Manual) Eosinophils % (Manual) Basophils % (Manual) Seg Neutrophils # Seg Neutrophils # Man Lymphocytes # (Manual) Monocytes # (Manual) Eosinophils # (Manual) Nucleated RBC % Basophils # (Manual) PT INR APTT Heparin Anti-Xa Level 0.15 L ABG pH POC ABG pO2 ABG pO2 ABG HCO3 ABG O2 Saturation ABG Base Excess POC ABG pCO2 ABG Hemoglobin ABG Oxyhemoglobin ABG Chloride ABG Glucose Oxyhemoglobin Sodium Potassium Chloride Carbon Dioxide BUN Creatinine Glucose POC Glucose 124 H Lactic Acid Calcium Phosphorus Magnesium AST ALT Lactate Dehydrogenase Total Bilirubin Direct Bilirubin CK-MB (CK-2) C-Reactive Protein NT-Pro-B Natriuret Pep Total Protein Albumin Arterial Blood Glucose Urine WBC (Auto) Urine Creatinine 12/09/19 12/09/19 12/10/19 09:43 12:41 00:13 WBC RBC Hgb Hct MCHC RDW MCV MCH Lymph % (Auto) [place] % (Auto) [place] # Eos # Lymph # (Auto) [place] # (Auto) Eos # (Auto) Seg Neutrophils % Seg Neuts % (Manual) Baso # (Auto) Lymphocytes % (Manual) Monocytes % (Manual) Eosinophils % (Manual) Basophils % (Manual) Seg Neutrophils # Seg Neutrophils # Man Lymphocytes # (Manual) Monocytes # (Manual) Eosinophils # (Manual) Nucleated RBC % Basophils # (Manual) PT INR APTT Heparin Anti-Xa Level ABG pH POC ABG pO2 ABG pO2 ABG HCO3 ABG O2 Saturation ABG Base Excess POC ABG pCO2 ABG Hemoglobin ABG Oxyhemoglobin ABG Chloride ABG Glucose Oxyhemoglobin Sodium Potassium Chloride Carbon Dioxide BUN 25 H Creatinine 0.6 L Glucose 131 H POC Glucose 109 H 120 H Lactic Acid Calcium Phosphorus Magnesium AST ALT Lactate Dehydrogenase Total Bilirubin Direct Bilirubin CK-MB (CK-2) C-Reactive Protein NT-Pro-B Natriuret Pep Total Protein Albumin Arterial Blood Glucose Urine WBC (Auto) Urine Creatinine 12/10/19 12/10/19 12/10/19 04:14 04:14 12:00 WBC 13.3 H RBC 3.34 L Hgb 9.6 L Hct 30.4 L MCHC RDW 15.4 H MCV MCH Lymph % (Auto) [place] % (Auto) [place] # Eos # Lymph # (Auto) [place] # (Auto) Eos # (Auto) Seg Neutrophils % Seg Neuts % (Manual) 75.0 H Baso # (Auto) Lymphocytes % (Manual) 13.0 L Monocytes % (Manual) 8.0 H Eosinophils % (Manual) Basophils % (Manual) 2.0 H Seg Neutrophils # Seg Neutrophils # Man 10.0 H Lymphocytes # (Manual) Monocytes # (Manual) 1.1 H Eosinophils # (Manual) Nucleated RBC % Basophils # (Manual) 0.3 H PT INR APTT Heparin Anti-Xa Level ABG pH POC ABG pO2 ABG pO2 ABG HCO3 ABG O2 Saturation ABG Base Excess POC ABG pCO2 ABG Hemoglobin ABG Oxyhemoglobin ABG Chloride ABG Glucose Oxyhemoglobin Sodium 147 H Potassium Chloride 108.3 H Carbon Dioxide BUN 21 H Creatinine 0.6 L Glucose 104 H POC Glucose 133 H Lactic Acid Calcium Phosphorus Magnesium AST ALT Lactate Dehydrogenase Total Bilirubin Direct Bilirubin CK-MB (CK-2) C-Reactive Protein NT-Pro-B Natriuret Pep Total Protein Albumin Arterial Blood Glucose Urine WBC (Auto) Urine Creatinine 12/10/19 12/10/19 12/11/19 18:44 21:20 00:08 WBC 14.9 H RBC 3.36 L Hgb 9.6 L Hct 30.5 L MCHC RDW 15.4 H MCV MCH Lymph % (Auto) [place] % (Auto) [place] # Eos # Lymph # (Auto) [place] # (Auto) Eos # (Auto) Seg Neutrophils % Seg Neuts % (Manual) Baso # (Auto) Lymphocytes % (Manual) Monocytes % (Manual) Eosinophils % (Manual) Basophils % (Manual) Seg Neutrophils # Seg Neutrophils # Man Lymphocytes # (Manual) Monocytes # (Manual) Eosinophils # (Manual) Nucleated RBC % Basophils # (Manual) PT INR APTT Heparin Anti-Xa Level ABG pH POC ABG pO2 ABG pO2 ABG HCO3 ABG O2 Saturation ABG Base Excess POC ABG pCO2 ABG Hemoglobin ABG Oxyhemoglobin ABG Chloride ABG Glucose Oxyhemoglobin Sodium Potassium Chloride Carbon Dioxide BUN Creatinine Glucose POC Glucose 119 H 134 H Lactic Acid Calcium Phosphorus Magnesium AST ALT Lactate Dehydrogenase Total Bilirubin Direct Bilirubin CK-MB (CK-2) C-Reactive Protein NT-Pro-B Natriuret Pep Total Protein Albumin Arterial Blood Glucose Urine WBC (Auto) Urine Creatinine 12/11/19 12/11/19 12/11/19 03:54 07:28 08:36 WBC 11.9 H RBC 3.25 L Hgb 9.6 L Hct 29.2 L MCHC RDW 15.7 H MCV MCH Lymph % (Auto) [place] % (Auto) [place] # Eos # Lymph # (Auto) [place] # (Auto) Eos # (Auto) Seg Neutrophils % Seg Neuts % (Manual) Baso # (Auto) Lymphocytes % (Manual) Monocytes % (Manual) Eosinophils % (Manual) Basophils % (Manual) Seg Neutrophils # Seg Neutrophils # Man Lymphocytes # (Manual) Monocytes # (Manual) Eosinophils # (Manual) Nucleated RBC % Basophils # (Manual) PT INR APTT Heparin Anti-Xa Level 0.10 L 0.16 L ABG pH POC ABG pO2 ABG pO2 ABG HCO3 ABG O2 Saturation ABG Base Excess POC ABG pCO2 ABG Hemoglobin ABG Oxyhemoglobin ABG Chloride ABG Glucose Oxyhemoglobin Sodium Potassium Chloride Carbon Dioxide BUN Creatinine Glucose POC Glucose Lactic Acid Calcium Phosphorus Magnesium AST ALT Lactate Dehydrogenase Total Bilirubin Direct Bilirubin CK-MB (CK-2) C-Reactive Protein NT-Pro-B Natriuret Pep Total Protein Albumin Arterial Blood Glucose Urine WBC (Auto) Urine Creatinine 12/11/19 12/11/19 12/11/19 08:36 11:45 17:15 WBC RBC Hgb Hct MCHC RDW MCV MCH Lymph % (Auto) [place] % (Auto) [place] # Eos # Lymph # (Auto) [place] # (Auto) Eos # (Auto) Seg Neutrophils % Seg Neuts % (Manual) Baso # (Auto) Lymphocytes % (Manual) Monocytes % (Manual) Eosinophils % (Manual) Basophils % (Manual) Seg Neutrophils # Seg Neutrophils # Man Lymphocytes # (Manual) Monocytes # (Manual) Eosinophils # (Manual) Nucleated RBC % Basophils # (Manual) PT INR APTT Heparin Anti-Xa Level ABG pH POC ABG pO2 ABG pO2 ABG HCO3 ABG O2 Saturation ABG Base Excess POC ABG pCO2 ABG Hemoglobin ABG Oxyhemoglobin ABG Chloride ABG Glucose Oxyhemoglobin Sodium Potassium Chloride Carbon Dioxide BUN Creatinine 0.5 L Glucose 128 H POC Glucose 136 H 109 H Lactic Acid Calcium Phosphorus Magnesium AST ALT Lactate Dehydrogenase Total Bilirubin Direct Bilirubin CK-MB (CK-2) C-Reactive Protein NT-Pro-B Natriuret Pep Total Protein Albumin Arterial Blood Glucose Urine WBC (Auto) Urine Creatinine 12/12/19 12/12/19 12/12/19 00:03 05:53 05:53 WBC RBC Hgb 8.8 L Hct 27.6 L MCHC RDW MCV MCH Lymph % (Auto) [place] % (Auto) [place] # Eos # Lymph # (Auto) [place] # (Auto) Eos # (Auto) Seg Neutrophils % Seg Neuts % (Manual) Baso # (Auto) Lymphocytes % (Manual) Monocytes % (Manual) Eosinophils % (Manual) Basophils % (Manual) Seg Neutrophils # Seg Neutrophils # Man Lymphocytes # (Manual) Monocytes # (Manual) Eosinophils # (Manual) Nucleated RBC % Basophils # (Manual) PT INR APTT Heparin Anti-Xa Level 0.22 L ABG pH POC ABG pO2 ABG pO2 ABG HCO3 ABG O2 Saturation ABG Base Excess POC ABG pCO2 ABG Hemoglobin ABG Oxyhemoglobin ABG Chloride ABG Glucose Oxyhemoglobin Sodium Potassium Chloride Carbon Dioxide BUN Creatinine Glucose POC Glucose 116 H Lactic Acid Calcium Phosphorus Magnesium AST ALT Lactate Dehydrogenase Total Bilirubin Direct Bilirubin CK-MB (CK-2) C-Reactive Protein NT-Pro-B Natriuret Pep Total Protein Albumin Arterial Blood Glucose Urine WBC (Auto) Urine Creatinine 12/12/19 12/12/19 12/12/19 09:38 12:18 17:44 WBC RBC Hgb Hct MCHC RDW MCV MCH Lymph % (Auto) [place] % (Auto) [place] # Eos # Lymph # (Auto) [place] # (Auto) Eos # (Auto) Seg Neutrophils % Seg Neuts % (Manual) Baso # (Auto) Lymphocytes % (Manual) Monocytes % (Manual) Eosinophils % (Manual) Basophils % (Manual) Seg Neutrophils # Seg Neutrophils # Man Lymphocytes # (Manual) Monocytes # (Manual) Eosinophils # (Manual) Nucleated RBC % Basophils # (Manual) PT INR APTT Heparin Anti-Xa Level ABG pH POC ABG pO2 ABG pO2 ABG HCO3 ABG O2 Saturation ABG Base Excess POC ABG pCO2 ABG Hemoglobin ABG Oxyhemoglobin ABG Chloride ABG Glucose Oxyhemoglobin Sodium Potassium Chloride Carbon Dioxide BUN Creatinine Glucose POC Glucose 115 H 146 H 146 H Lactic Acid Calcium Phosphorus Magnesium AST ALT Lactate Dehydrogenase Total Bilirubin Direct Bilirubin CK-MB (CK-2) C-Reactive Protein NT-Pro-B Natriuret Pep Total Protein Albumin Arterial Blood Glucose Urine WBC (Auto) Urine Creatinine 12/12/19 12/13/19 12/13/19 23:33 05:32 05:32 WBC 13.1 H RBC 3.27 L Hgb 9.5 L Hct 29.3 L MCHC RDW 15.6 H MCV MCH Lymph % (Auto) [place] % (Auto) [place] # Eos # Lymph # (Auto) [place] # (Auto) Eos # (Auto) Seg Neutrophils % Seg Neuts % (Manual) 74.0 H Baso # (Auto) Lymphocytes % (Manual) 8.0 L Monocytes % (Manual) 9.0 H Eosinophils % (Manual) 5.0 H Basophils % (Manual) Seg Neutrophils # Seg Neutrophils # Man 9.7 H Lymphocytes # (Manual) 1.0 L Monocytes # (Manual) 1.2 H Eosinophils # (Manual) 0.7 H Nucleated RBC % Basophils # (Manual) PT INR APTT Heparin Anti-Xa Level 0.20 L ABG pH POC ABG pO2 ABG pO2 ABG HCO3 ABG O2 Saturation ABG Base Excess POC ABG pCO2 ABG Hemoglobin ABG Oxyhemoglobin ABG Chloride ABG Glucose Oxyhemoglobin Sodium Potassium Chloride Carbon Dioxide BUN Creatinine Glucose POC Glucose 126 H Lactic Acid Calcium Phosphorus Magnesium AST ALT Lactate Dehydrogenase Total Bilirubin Direct Bilirubin CK-MB (CK-2) C-Reactive Protein NT-Pro-B Natriuret Pep Total Protein Albumin Arterial Blood Glucose Urine WBC (Auto) Urine Creatinine 12/13/19 12/13/19 12/13/19 05:32 05:46 11:57 WBC RBC Hgb Hct MCHC RDW MCV MCH Lymph % (Auto) [place] % (Auto) [place] # Eos # Lymph # (Auto) [place] # (Auto) Eos # (Auto) Seg Neutrophils % Seg Neuts % (Manual) Baso # (Auto) Lymphocytes % (Manual) Monocytes % (Manual) Eosinophils % (Manual) Basophils % (Manual) Seg Neutrophils # Seg Neutrophils # Man Lymphocytes # (Manual) Monocytes # (Manual) Eosinophils # (Manual) Nucleated RBC % Basophils # (Manual) PT INR APTT Heparin Anti-Xa Level ABG pH POC ABG pO2 ABG pO2 ABG HCO3 ABG O2 Saturation ABG Base Excess POC ABG pCO2 ABG Hemoglobin ABG Oxyhemoglobin ABG Chloride ABG Glucose Oxyhemoglobin Sodium Potassium Chloride Carbon Dioxide 31 H BUN Creatinine 0.6 L Glucose 114 H POC Glucose 118 H 133 H Lactic Acid Calcium Phosphorus Magnesium AST ALT Lactate Dehydrogenase Total Bilirubin Direct Bilirubin CK-MB (CK-2) C-Reactive Protein NT-Pro-B Natriuret Pep Total Protein Albumin Arterial Blood Glucose Urine WBC (Auto) Urine Creatinine 12/13/19 12/13/19 12/14/19 17:44 23:46 05:32 WBC RBC Hgb Hct MCHC RDW MCV MCH Lymph % (Auto) [place] % (Auto) [place] # Eos # Lymph # (Auto) [place] # (Auto) Eos # (Auto) Seg Neutrophils % Seg Neuts % (Manual) Baso # (Auto) Lymphocytes % (Manual) Monocytes % (Manual) Eosinophils % (Manual) Basophils % (Manual) Seg Neutrophils # Seg Neutrophils # Man Lymphocytes # (Manual) Monocytes # (Manual) Eosinophils # (Manual) Nucleated RBC % Basophils # (Manual) PT INR APTT Heparin Anti-Xa Level ABG pH POC ABG pO2 ABG pO2 ABG HCO3 ABG O2 Saturation ABG Base Excess POC ABG pCO2 ABG Hemoglobin ABG Oxyhemoglobin ABG Chloride ABG Glucose Oxyhemoglobin Sodium Potassium Chloride Carbon Dioxide BUN Creatinine Glucose POC Glucose 161 H 126 H 139 H Lactic Acid Calcium Phosphorus Magnesium AST ALT Lactate Dehydrogenase Total Bilirubin Direct Bilirubin CK-MB (CK-2) C-Reactive Protein NT-Pro-B Natriuret Pep Total Protein Albumin Arterial Blood Glucose Urine WBC (Auto) Urine Creatinine 12/14/19 12/14/19 12/14/19 06:03 06:03 09:37 WBC RBC Hgb 9.6 L Hct 30.4 L MCHC RDW MCV MCH Lymph % (Auto) [place] % (Auto) [place] # Eos # Lymph # (Auto) [place] # (Auto) Eos # (Auto) Seg Neutrophils % Seg Neuts % (Manual) Baso # (Auto) Lymphocytes % (Manual) Monocytes % (Manual) Eosinophils % (Manual) Basophils % (Manual) Seg Neutrophils # Seg Neutrophils # Man Lymphocytes # (Manual) Monocytes # (Manual) Eosinophils # (Manual) Nucleated RBC % Basophils # (Manual) PT INR APTT Heparin Anti-Xa Level 0.24 L ABG pH POC ABG pO2 ABG pO2 ABG HCO3 ABG O2 Saturation ABG Base Excess POC ABG pCO2 ABG Hemoglobin ABG Oxyhemoglobin ABG Chloride ABG Glucose Oxyhemoglobin Sodium Potassium Chloride Carbon Dioxide BUN Creatinine 0.6 L Glucose 162 H POC Glucose Lactic Acid Calcium Phosphorus Magnesium AST 71 H ALT 118 H Lactate Dehydrogenase Total Bilirubin Direct Bilirubin CK-MB (CK-2) C-Reactive Protein NT-Pro-B Natriuret Pep Total Protein 6.2 L Albumin 2.3 L Arterial Blood Glucose Urine WBC (Auto) Urine Creatinine 12/14/19 12/14/19 12/15/19 12:06 18:18 00:19 WBC RBC Hgb Hct MCHC RDW MCV MCH Lymph % (Auto) [place] % (Auto) [place] # Eos # Lymph # (Auto) [place] # (Auto) Eos # (Auto) Seg Neutrophils % Seg Neuts % (Manual) Baso # (Auto) Lymphocytes % (Manual) Monocytes % (Manual) Eosinophils % (Manual) Basophils % (Manual) Seg Neutrophils # Seg Neutrophils # Man Lymphocytes # (Manual) Monocytes # (Manual) Eosinophils # (Manual) Nucleated RBC % Basophils # (Manual) PT INR APTT Heparin Anti-Xa Level ABG pH POC ABG pO2 ABG pO2 ABG HCO3 ABG O2 Saturation ABG Base Excess POC ABG pCO2 ABG Hemoglobin ABG Oxyhemoglobin ABG Chloride ABG Glucose Oxyhemoglobin Sodium Potassium Chloride Carbon Dioxide BUN Creatinine Glucose POC Glucose 147 H 166 H 123 H Lactic Acid Calcium Phosphorus Magnesium AST ALT Lactate Dehydrogenase Total Bilirubin Direct Bilirubin CK-MB (CK-2) C-Reactive Protein NT-Pro-B Natriuret Pep Total Protein Albumin Arterial Blood Glucose Urine WBC (Auto) Urine Creatinine 12/15/19 12/15/19 12/15/19 05:28 05:29 05:29 WBC 14.9 H RBC 3.19 L Hgb 9.1 L Hct 28.7 L MCHC RDW 16.0 H MCV MCH Lymph % (Auto) [place] % (Auto) [place] # Eos # Lymph # (Auto) [place] # (Auto) Eos # (Auto) Seg Neutrophils % Seg Neuts % (Manual) Baso # (Auto) Lymphocytes % (Manual) Monocytes % (Manual) Eosinophils % (Manual) Basophils % (Manual) Seg Neutrophils # Seg Neutrophils # Man Lymphocytes # (Manual) Monocytes # (Manual) Eosinophils # (Manual) Nucleated RBC % Basophils # (Manual) PT INR APTT Heparin Anti-Xa Level 0.19 L ABG pH POC ABG pO2 ABG pO2 ABG HCO3 ABG O2 Saturation ABG Base Excess POC ABG pCO2 ABG Hemoglobin ABG Oxyhemoglobin ABG Chloride ABG Glucose Oxyhemoglobin Sodium Potassium Chloride Carbon Dioxide BUN Creatinine 0.6 L Glucose 110 H POC Glucose Lactic Acid Calcium Phosphorus Magnesium AST ALT Lactate Dehydrogenase Total Bilirubin Direct Bilirubin CK-MB (CK-2) C-Reactive Protein NT-Pro-B Natriuret Pep Total Protein Albumin Arterial Blood Glucose Urine WBC (Auto) Urine Creatinine 12/15/19 12/15/19 12/15/19 05:53 11:50 17:26 WBC RBC Hgb Hct MCHC RDW MCV MCH Lymph % (Auto) [place] % (Auto) [place] # Eos # Lymph # (Auto) [place] # (Auto) Eos # (Auto) Seg Neutrophils % Seg Neuts % (Manual) Baso # (Auto) Lymphocytes % (Manual) Monocytes % (Manual) Eosinophils % (Manual) Basophils % (Manual) Seg Neutrophils # Seg Neutrophils # Man Lymphocytes # (Manual) Monocytes # (Manual) Eosinophils # (Manual) Nucleated RBC % Basophils # (Manual) PT INR APTT Heparin Anti-Xa Level ABG pH POC ABG pO2 ABG pO2 ABG HCO3 ABG O2 Saturation ABG Base Excess POC ABG pCO2 ABG Hemoglobin ABG Oxyhemoglobin ABG Chloride ABG Glucose Oxyhemoglobin Sodium Potassium Chloride Carbon Dioxide BUN Creatinine Glucose POC Glucose 119 H 132 H 128 H Lactic Acid Calcium Phosphorus Magnesium AST ALT Lactate Dehydrogenase Total Bilirubin Direct Bilirubin CK-MB (CK-2) C-Reactive Protein NT-Pro-B Natriuret Pep Total Protein Albumin Arterial Blood Glucose Urine WBC (Auto) Urine Creatinine 12/15/19 12/16/19 12/16/19 23:11 05:30 05:46 WBC RBC Hgb 8.8 L Hct 27.9 L MCHC RDW MCV MCH Lymph % (Auto) [place] % (Auto) [place] # Eos # Lymph # (Auto) [place] # (Auto) Eos # (Auto) Seg Neutrophils % Seg Neuts % (Manual) Baso # (Auto) Lymphocytes % (Manual) Monocytes % (Manual) Eosinophils % (Manual) Basophils % (Manual) Seg Neutrophils # Seg Neutrophils # Man Lymphocytes # (Manual) Monocytes # (Manual) Eosinophils # (Manual) Nucleated RBC % Basophils # (Manual) PT INR APTT Heparin Anti-Xa Level ABG pH POC ABG pO2 ABG pO2 ABG HCO3 ABG O2 Saturation ABG Base Excess POC ABG pCO2 ABG Hemoglobin ABG Oxyhemoglobin ABG Chloride ABG Glucose Oxyhemoglobin Sodium Potassium Chloride Carbon Dioxide BUN Creatinine Glucose POC Glucose 150 H 134 H Lactic Acid Calcium Phosphorus Magnesium AST ALT Lactate Dehydrogenase Total Bilirubin Direct Bilirubin CK-MB (CK-2) C-Reactive Protein NT-Pro-B Natriuret Pep Total Protein Albumin Arterial Blood Glucose Urine WBC (Auto) Urine Creatinine 12/16/19 12/16/19 12/16/19 05:46 05:46 11:44 WBC RBC Hgb Hct MCHC RDW MCV MCH Lymph % (Auto) [place] % (Auto) [place] # Eos # Lymph # (Auto) [place] # (Auto) Eos # (Auto) Seg Neutrophils % Seg Neuts % (Manual) Baso # (Auto) Lymphocytes % (Manual) Monocytes % (Manual) Eosinophils % (Manual) Basophils % (Manual) Seg Neutrophils # Seg Neutrophils # Man Lymphocytes # (Manual) Monocytes # (Manual) Eosinophils # (Manual) Nucleated RBC % Basophils # (Manual) PT INR APTT Heparin Anti-Xa Level 0.20 L ABG pH POC ABG pO2 ABG pO2 ABG HCO3 ABG O2 Saturation ABG Base Excess POC ABG pCO2 ABG Hemoglobin ABG Oxyhemoglobin ABG Chloride ABG Glucose Oxyhemoglobin Sodium Potassium Chloride Carbon Dioxide 31 H BUN Creatinine 0.5 L Glucose 147 H POC Glucose 164 H Lactic Acid Calcium Phosphorus Magnesium AST ALT Lactate Dehydrogenase Total Bilirubin Direct Bilirubin CK-MB (CK-2) C-Reactive Protein NT-Pro-B Natriuret Pep Total Protein Albumin Arterial Blood Glucose Urine WBC (Auto) Urine Creatinine 12/16/19 12/16/19 12/17/19 17:17 23:49 05:30 WBC 13.9 H RBC 3.27 L Hgb 9.4 L Hct 29.2 L MCHC RDW 16.0 H MCV MCH Lymph % (Auto) [place] % (Auto) 8.8 H [place] # Eos # Lymph # (Auto) [place] # (Auto) 1.2 H Eos # (Auto) 0.5 H Seg Neutrophils % 70.5 H Seg Neuts % (Manual) Baso # (Auto) 0.2 H Lymphocytes % (Manual) Monocytes % (Manual) Eosinophils % (Manual) Basophils % (Manual) Seg Neutrophils # 9.8 H Seg Neutrophils # Man Lymphocytes # (Manual) Monocytes # (Manual) Eosinophils # (Manual) Nucleated RBC % Basophils # (Manual) PT INR APTT Heparin Anti-Xa Level ABG pH POC ABG pO2 ABG pO2 ABG HCO3 ABG O2 Saturation ABG Base Excess POC ABG pCO2 ABG Hemoglobin ABG Oxyhemoglobin ABG Chloride ABG Glucose Oxyhemoglobin Sodium Potassium Chloride Carbon Dioxide BUN Creatinine Glucose POC Glucose 162 H 144 H Lactic Acid Calcium Phosphorus Magnesium AST ALT Lactate Dehydrogenase Total Bilirubin Direct Bilirubin CK-MB (CK-2) C-Reactive Protein NT-Pro-B Natriuret Pep Total Protein Albumin Arterial Blood Glucose Urine WBC (Auto) Urine Creatinine 12/17/19 12/17/19 12/17/19 05:30 06:06 11:50 WBC RBC Hgb Hct MCHC RDW MCV MCH Lymph % (Auto) [place] % (Auto) [place] # Eos # Lymph # (Auto) [place] # (Auto) Eos # (Auto) Seg Neutrophils % Seg Neuts % (Manual) Baso # (Auto) Lymphocytes % (Manual) Monocytes % (Manual) Eosinophils % (Manual) Basophils % (Manual) Seg Neutrophils # Seg Neutrophils # Man Lymphocytes # (Manual) Monocytes # (Manual) Eosinophils # (Manual) Nucleated RBC % Basophils # (Manual) PT INR APTT Heparin Anti-Xa Level ABG pH POC ABG pO2 ABG pO2 ABG HCO3 ABG O2 Saturation ABG Base Excess POC ABG pCO2 ABG Hemoglobin ABG Oxyhemoglobin ABG Chloride ABG Glucose Oxyhemoglobin Sodium Potassium Chloride 97.4 L Carbon Dioxide 32 H BUN Creatinine 0.5 L Glucose 135 H POC Glucose 151 H 140 H Lactic Acid Calcium Phosphorus Magnesium AST ALT Lactate Dehydrogenase Total Bilirubin Direct Bilirubin CK-MB (CK-2) C-Reactive Protein NT-Pro-B Natriuret Pep Total Protein Albumin Arterial Blood Glucose Urine WBC (Auto) Urine Creatinine 12/17/19 12/17/19 12/18/19 17:50 23:46 05:17 WBC RBC Hgb 8.8 L Hct 28.0 L MCHC RDW MCV MCH Lymph % (Auto) [place] % (Auto) [place] # Eos # Lymph # (Auto) [place] # (Auto) Eos # (Auto) Seg Neutrophils % Seg Neuts % (Manual) Baso # (Auto) Lymphocytes % (Manual) Monocytes % (Manual) Eosinophils % (Manual) Basophils % (Manual) Seg Neutrophils # Seg Neutrophils # Man Lymphocytes # (Manual) Monocytes # (Manual) Eosinophils # (Manual) Nucleated RBC % Basophils # (Manual) PT INR APTT Heparin Anti-Xa Level ABG pH POC ABG pO2 ABG pO2 ABG HCO3 ABG O2 Saturation ABG Base Excess POC ABG pCO2 ABG Hemoglobin ABG Oxyhemoglobin ABG Chloride ABG Glucose Oxyhemoglobin Sodium Potassium Chloride Carbon Dioxide BUN Creatinine Glucose POC Glucose 158 H 150 H Lactic Acid Calcium Phosphorus Magnesium AST ALT Lactate Dehydrogenase Total Bilirubin Direct Bilirubin CK-MB (CK-2) C-Reactive Protein NT-Pro-B Natriuret Pep Total Protein Albumin Arterial Blood Glucose Urine WBC (Auto) Urine Creatinine 12/18/19 12/18/19 12/18/19 05:17 05:49 11:12 WBC RBC Hgb Hct MCHC RDW MCV MCH Lymph % (Auto) [place] % (Auto) [place] # Eos # Lymph # (Auto) [place] # (Auto) Eos # (Auto) Seg Neutrophils % Seg Neuts % (Manual) Baso # (Auto) Lymphocytes % (Manual) Monocytes % (Manual) Eosinophils % (Manual) Basophils % (Manual) Seg Neutrophils # Seg Neutrophils # Man Lymphocytes # (Manual) Monocytes # (Manual) Eosinophils # (Manual) Nucleated RBC % Basophils # (Manual) PT INR APTT Heparin Anti-Xa Level 0.16 L ABG pH POC ABG pO2 ABG pO2 ABG HCO3 ABG O2 Saturation ABG Base Excess POC ABG pCO2 ABG Hemoglobin ABG Oxyhemoglobin ABG Chloride ABG Glucose Oxyhemoglobin Sodium Potassium Chloride Carbon Dioxide BUN Creatinine Glucose POC Glucose 127 H 191 H Lactic Acid Calcium Phosphorus Magnesium AST ALT Lactate Dehydrogenase Total Bilirubin Direct Bilirubin CK-MB (CK-2) C-Reactive Protein NT-Pro-B Natriuret Pep Total Protein Albumin Arterial Blood Glucose Urine WBC (Auto) Urine Creatinine 12/18/19 12/18/19 12/19/19 17:03 20:16 00:08 WBC RBC Hgb Hct MCHC RDW MCV MCH Lymph % (Auto) [place] % (Auto) [place] # Eos # Lymph # (Auto) [place] # (Auto) Eos # (Auto) Seg Neutrophils % Seg Neuts % (Manual) Baso # (Auto) Lymphocytes % (Manual) Monocytes % (Manual) Eosinophils % (Manual) Basophils % (Manual) Seg Neutrophils # Seg Neutrophils # Man Lymphocytes # (Manual) Monocytes # (Manual) Eosinophils # (Manual) Nucleated RBC % Basophils # (Manual) PT INR APTT Heparin Anti-Xa Level ABG pH POC ABG pO2 ABG pO2 ABG HCO3 ABG O2 Saturation ABG Base Excess POC ABG pCO2 ABG Hemoglobin ABG Oxyhemoglobin ABG Chloride ABG Glucose Oxyhemoglobin Sodium Potassium Chloride Carbon Dioxide BUN Creatinine Glucose POC Glucose 133 H 128 H 129 H Lactic Acid Calcium Phosphorus Magnesium AST ALT Lactate Dehydrogenase Total Bilirubin Direct Bilirubin CK-MB (CK-2) C-Reactive Protein NT-Pro-B Natriuret Pep Total Protein Albumin Arterial Blood Glucose Urine WBC (Auto) Urine Creatinine 12/19/19 12/19/19 12/19/19 04:45 04:45 05:35 WBC RBC Hgb Hct MCHC RDW MCV MCH Lymph % (Auto) [place] % (Auto) [place] # Eos # Lymph # (Auto) [place] # (Auto) Eos # (Auto) Seg Neutrophils % Seg Neuts % (Manual) Baso # (Auto) Lymphocytes % (Manual) Monocytes % (Manual) Eosinophils % (Manual) Basophils % (Manual) Seg Neutrophils # Seg Neutrophils # Man Lymphocytes # (Manual) Monocytes # (Manual) Eosinophils # (Manual) Nucleated RBC % Basophils # (Manual) PT INR APTT Heparin Anti-Xa Level 0.17 L ABG pH POC ABG pO2 ABG pO2 ABG HCO3 ABG O2 Saturation ABG Base Excess POC ABG pCO2 ABG Hemoglobin ABG Oxyhemoglobin ABG Chloride ABG Glucose Oxyhemoglobin Sodium Potassium Chloride Carbon Dioxide BUN Creatinine Glucose POC Glucose 120 H Lactic Acid Calcium Phosphorus Magnesium AST ALT Lactate Dehydrogenase 228 H Total Bilirubin Direct Bilirubin CK-MB (CK-2) C-Reactive Protein NT-Pro-B Natriuret Pep Total Protein Albumin Arterial Blood Glucose Urine WBC (Auto) Urine Creatinine 12/19/19 12/19/19 12/19/19 09:20 11:32 11:32 WBC 14.6 H RBC 3.08 L Hgb 9.0 L Hct 26.8 L MCHC RDW 15.9 H MCV MCH Lymph % (Auto) [place] % (Auto) [place] # Eos # Lymph # (Auto) [place] # (Auto) Eos # (Auto) Seg Neutrophils % Seg Neuts % (Manual) 82.0 H Baso # (Auto) Lymphocytes % (Manual) 10.0 L Monocytes % (Manual) Eosinophils % (Manual) Basophils % (Manual) Seg Neutrophils # Seg Neutrophils # Man 12.0 H Lymphocytes # (Manual) Monocytes # (Manual) 0.9 H Eosinophils # (Manual) Nucleated RBC % 1.0 H Basophils # (Manual) PT INR APTT Heparin Anti-Xa Level ABG pH 7.451 H POC ABG pO2 ABG pO2 62.6 L ABG HCO3 33.2 H ABG O2 Saturation 93.8 L ABG Base Excess 8.3 H POC ABG pCO2 ABG Hemoglobin 8.3 L ABG Oxyhemoglobin ABG Chloride ABG Glucose Oxyhemoglobin 91.9 L Sodium Potassium Chloride 95.0 L Carbon Dioxide 33 H BUN 22 H Creatinine 0.6 L Glucose 150 H POC Glucose Lactic Acid Calcium Phosphorus Magnesium AST ALT Lactate Dehydrogenase Total Bilirubin Direct Bilirubin CK-MB (CK-2) C-Reactive Protein NT-Pro-B Natriuret Pep Total Protein 6.2 L Albumin 2.4 L Arterial Blood Glucose Urine WBC (Auto) Urine Creatinine 12/19/19 12/19/19 12/20/19 11:56 18:17 00:09 WBC RBC Hgb Hct MCHC RDW MCV MCH Lymph % (Auto) [place] % (Auto) [place] # Eos # Lymph # (Auto) [place] # (Auto) Eos # (Auto) Seg Neutrophils % Seg Neuts % (Manual) Baso # (Auto) Lymphocytes % (Manual) Monocytes % (Manual) Eosinophils % (Manual) Basophils % (Manual) Seg Neutrophils # Seg Neutrophils # Man Lymphocytes # (Manual) Monocytes # (Manual) Eosinophils # (Manual) Nucleated RBC % Basophils # (Manual) PT INR APTT Heparin Anti-Xa Level ABG pH POC ABG pO2 ABG pO2 ABG HCO3 ABG O2 Saturation ABG Base Excess POC ABG pCO2 ABG Hemoglobin ABG Oxyhemoglobin ABG Chloride ABG Glucose Oxyhemoglobin Sodium Potassium Chloride Carbon Dioxide BUN Creatinine Glucose POC Glucose 156 H 156 H 155 H Lactic Acid Calcium Phosphorus Magnesium AST ALT Lactate Dehydrogenase Total Bilirubin Direct Bilirubin CK-MB (CK-2) C-Reactive Protein NT-Pro-B Natriuret Pep Total Protein Albumin Arterial Blood Glucose Urine WBC (Auto) Urine Creatinine 12/20/19 12/20/19 12/20/19 05:26 06:02 18:17 WBC RBC Hgb Hct MCHC RDW MCV MCH Lymph % (Auto) [place] % (Auto) [place] # Eos # Lymph # (Auto) [place] # (Auto) Eos # (Auto) Seg Neutrophils % Seg Neuts % (Manual) Baso # (Auto) Lymphocytes % (Manual) Monocytes % (Manual) Eosinophils % (Manual) Basophils % (Manual) Seg Neutrophils # Seg Neutrophils # Man Lymphocytes # (Manual) Monocytes # (Manual) Eosinophils # (Manual) Nucleated RBC % Basophils # (Manual) PT INR APTT Heparin Anti-Xa Level 0.19 L ABG pH POC ABG pO2 ABG pO2 ABG HCO3 ABG O2 Saturation ABG Base Excess POC ABG pCO2 ABG Hemoglobin ABG Oxyhemoglobin ABG Chloride ABG Glucose Oxyhemoglobin Sodium Potassium Chloride Carbon Dioxide BUN Creatinine Glucose POC Glucose 137 H 128 H Lactic Acid Calcium Phosphorus Magnesium AST ALT Lactate Dehydrogenase Total Bilirubin Direct Bilirubin CK-MB (CK-2) C-Reactive Protein NT-Pro-B Natriuret Pep Total Protein Albumin Arterial Blood Glucose Urine WBC (Auto) Urine Creatinine 12/20/19 12/21/19 12/21/19 23:34 05:31 05:31 WBC 12.7 H RBC 3.09 L Hgb 8.9 L Hct 27.4 L MCHC RDW 15.8 H MCV MCH Lymph % (Auto) 12.1 L [place] % (Auto) 7.8 H [place] # Eos # Lymph # (Auto) [place] # (Auto) 1.0 H Eos # (Auto) Seg Neutrophils % 77.1 H Seg Neuts % (Manual) Baso # (Auto) Lymphocytes % (Manual) Monocytes % (Manual) Eosinophils % (Manual) Basophils % (Manual) Seg Neutrophils # 9.8 H Seg Neutrophils # Man Lymphocytes # (Manual) Monocytes # (Manual) Eosinophils # (Manual) Nucleated RBC % Basophils # (Manual) PT INR APTT Heparin Anti-Xa Level ABG pH POC ABG pO2 ABG pO2 ABG HCO3 ABG O2 Saturation ABG Base Excess POC ABG pCO2 ABG Hemoglobin ABG Oxyhemoglobin ABG Chloride ABG Glucose Oxyhemoglobin Sodium Potassium Chloride 96.9 L Carbon Dioxide 37 H BUN 27 H Creatinine 0.7 L Glucose 140 H POC Glucose 145 H Lactic Acid Calcium Phosphorus Magnesium AST ALT Lactate Dehydrogenase Total Bilirubin Direct Bilirubin CK-MB (CK-2) C-Reactive Protein NT-Pro-B Natriuret Pep Total Protein Albumin Arterial Blood Glucose Urine WBC (Auto) Urine Creatinine 12/21/19 12/21/19 12/21/19 05:38 10:13 11:51 WBC RBC Hgb Hct MCHC RDW MCV MCH Lymph % (Auto) [place] % (Auto) [place] # Eos # Lymph # (Auto) [place] # (Auto) Eos # (Auto) Seg Neutrophils % Seg Neuts % (Manual) Baso # (Auto) Lymphocytes % (Manual) Monocytes % (Manual) Eosinophils % (Manual) Basophils % (Manual) Seg Neutrophils # Seg Neutrophils # Man Lymphocytes # (Manual) Monocytes # (Manual) Eosinophils # (Manual) Nucleated RBC % Basophils # (Manual) PT INR APTT 23.9 L Heparin Anti-Xa Level < 0.10 L ABG pH POC ABG pO2 ABG pO2 ABG HCO3 ABG O2 Saturation ABG Base Excess POC ABG pCO2 ABG Hemoglobin ABG Oxyhemoglobin ABG Chloride ABG Glucose Oxyhemoglobin Sodium Potassium Chloride Carbon Dioxide BUN Creatinine Glucose POC Glucose 151 H 145 H Lactic Acid Calcium Phosphorus Magnesium AST ALT Lactate Dehydrogenase Total Bilirubin Direct Bilirubin CK-MB (CK-2) C-Reactive Protein NT-Pro-B Natriuret Pep Total Protein Albumin Arterial Blood Glucose Urine WBC (Auto) Urine Creatinine 12/21/19 12/22/19 12/22/19 17:16 00:01 01:33 WBC RBC Hgb Hct MCHC RDW MCV MCH Lymph % (Auto) [place] % (Auto) [place] # Eos # Lymph # (Auto) [place] # (Auto) Eos # (Auto) Seg Neutrophils % Seg Neuts % (Manual) Baso # (Auto) Lymphocytes % (Manual) Monocytes % (Manual) Eosinophils % (Manual) Basophils % (Manual) Seg Neutrophils # Seg Neutrophils # Man Lymphocytes # (Manual) Monocytes # (Manual) Eosinophils # (Manual) Nucleated RBC % Basophils # (Manual) PT INR APTT Heparin Anti-Xa Level 0.10 L ABG pH POC ABG pO2 ABG pO2 ABG HCO3 ABG O2 Saturation ABG Base Excess POC ABG pCO2 ABG Hemoglobin ABG Oxyhemoglobin ABG Chloride ABG Glucose Oxyhemoglobin Sodium Potassium Chloride Carbon Dioxide BUN Creatinine Glucose POC Glucose 167 H 179 H Lactic Acid Calcium Phosphorus Magnesium AST ALT Lactate Dehydrogenase Total Bilirubin Direct Bilirubin CK-MB (CK-2) C-Reactive Protein NT-Pro-B Natriuret Pep Total Protein Albumin Arterial Blood Glucose Urine WBC (Auto) Urine Creatinine 12/22/19 12/22/19 12/22/19 03:22 05:10 05:10 WBC 13.8 H RBC 3.20 L Hgb 8.9 L Hct 28.1 L MCHC RDW 15.9 H MCV MCH Lymph % (Auto) [place] % (Auto) [place] # Eos # Lymph # (Auto) [place] # (Auto) Eos # (Auto) Seg Neutrophils % Seg Neuts % (Manual) Baso # (Auto) Lymphocytes % (Manual) Monocytes % (Manual) Eosinophils % (Manual) Basophils % (Manual) Seg Neutrophils # Seg Neutrophils # Man Lymphocytes # (Manual) Monocytes # (Manual) Eosinophils # (Manual) Nucleated RBC % Basophils # (Manual) PT INR APTT Heparin Anti-Xa Level ABG pH POC ABG pO2 52.3 L ABG pO2 ABG HCO3 ABG O2 Saturation ABG Base Excess POC ABG pCO2 52.9 H ABG Hemoglobin 10.7 L ABG Oxyhemoglobin 84 L ABG Chloride ABG Glucose Oxyhemoglobin Sodium Potassium Chloride 96.6 L Carbon Dioxide BUN 25 H Creatinine 0.7 L Glucose 129 H POC Glucose Lactic Acid Calcium Phosphorus Magnesium AST ALT Lactate Dehydrogenase Total Bilirubin Direct Bilirubin CK-MB (CK-2) C-Reactive Protein NT-Pro-B Natriuret Pep Total Protein Albumin Arterial Blood Glucose Urine WBC (Auto) Urine Creatinine 09/29/20 09/29/20 09/29/20 05:18 12:32 12:43 WBC RBC Hgb Hct MCHC RDW MCV MCH Lymph % (Auto) [place] % (Auto) [place] # Eos # Lymph # (Auto) [place] # (Auto) Eos # (Auto) Seg Neutrophils % Seg Neuts % (Manual) Baso # (Auto) Lymphocytes % (Manual) Monocytes % (Manual) Eosinophils % (Manual) Basophils % (Manual) Seg Neutrophils # Seg Neutrophils # Man Lymphocytes # (Manual) Monocytes # (Manual) Eosinophils # (Manual) Nucleated RBC % Basophils # (Manual) PT INR APTT Heparin Anti-Xa Level 0.18 L ABG pH POC ABG pO2 ABG pO2 ABG HCO3 ABG O2 Saturation ABG Base Excess POC ABG pCO2 ABG Hemoglobin ABG Oxyhemoglobin ABG Chloride ABG Glucose Oxyhemoglobin Sodium Potassium Chloride Carbon Dioxide BUN Creatinine Glucose POC Glucose 131 H 208 H Lactic Acid Calcium Phosphorus Magnesium AST ALT Lactate Dehydrogenase Total Bilirubin Direct Bilirubin CK-MB (CK-2) C-Reactive Protein NT-Pro-B Natriuret Pep Total Protein Albumin Arterial Blood Glucose Urine WBC (Auto) Urine Creatinine 12/22/19 12/22/19 12/23/19 17:44 23:20 03:51 WBC 15.2 H RBC 3.43 L Hgb 9.6 L Hct 30.3 L MCHC RDW 15.9 H MCV MCH Lymph % (Auto) [place] % (Auto) [place] # Eos # Lymph # (Auto) [place] # (Auto) Eos # (Auto) Seg Neutrophils % Seg Neuts % (Manual) Baso # (Auto) Lymphocytes % (Manual) Monocytes % (Manual) Eosinophils % (Manual) Basophils % (Manual) Seg Neutrophils # Seg Neutrophils # Man Lymphocytes # (Manual) Monocytes # (Manual) Eosinophils # (Manual) Nucleated RBC % Basophils # (Manual) PT INR APTT Heparin Anti-Xa Level ABG pH POC ABG pO2 ABG pO2 ABG HCO3 ABG O2 Saturation ABG Base Excess POC ABG pCO2 ABG Hemoglobin ABG Oxyhemoglobin ABG Chloride ABG Glucose Oxyhemoglobin Sodium Potassium Chloride Carbon Dioxide BUN Creatinine Glucose POC Glucose 209 H 119 H Lactic Acid Calcium Phosphorus Magnesium AST ALT Lactate Dehydrogenase Total Bilirubin Direct Bilirubin CK-MB (CK-2) C-Reactive Protein NT-Pro-B Natriuret Pep Total Protein Albumin Arterial Blood Glucose Urine WBC (Auto) Urine Creatinine 12/23/19 12/23/19 12/23/19 03:51 05:31 12:09 WBC RBC Hgb Hct MCHC RDW MCV MCH Lymph % (Auto) [place] % (Auto) [place] # Eos # Lymph # (Auto) [place] # (Auto) Eos # (Auto) Seg Neutrophils % Seg Neuts % (Manual) Baso # (Auto) Lymphocytes % (Manual) Monocytes % (Manual) Eosinophils % (Manual) Basophils % (Manual) Seg Neutrophils # Seg Neutrophils # Man Lymphocytes # (Manual) Monocytes # (Manual) Eosinophils # (Manual) Nucleated RBC % Basophils # (Manual) PT INR APTT Heparin Anti-Xa Level ABG pH POC ABG pO2 ABG pO2 ABG HCO3 ABG O2 Saturation ABG Base Excess POC ABG pCO2 ABG Hemoglobin ABG Oxyhemoglobin ABG Chloride ABG Glucose Oxyhemoglobin Sodium Potassium Chloride 97.2 L Carbon Dioxide 31 H BUN 23 H Creatinine 0.6 L Glucose 153 H POC Glucose 149 H 144 H Lactic Acid Calcium Phosphorus Magnesium AST ALT Lactate Dehydrogenase Total Bilirubin Direct Bilirubin CK-MB (CK-2) C-Reactive Protein NT-Pro-B Natriuret Pep Total Protein Albumin Arterial Blood Glucose Urine WBC (Auto) Urine Creatinine 12/23/19 12/23/19 12/23/19 15:30 17:49 23:31 WBC RBC Hgb Hct MCHC RDW MCV MCH Lymph % (Auto) [place] % (Auto) [place] # Eos # Lymph # (Auto) [place] # (Auto) Eos # (Auto) Seg Neutrophils % Seg Neuts % (Manual) Baso # (Auto) Lymphocytes % (Manual) Monocytes % (Manual) Eosinophils % (Manual) Basophils % (Manual) Seg Neutrophils # Seg Neutrophils # Man Lymphocytes # (Manual) Monocytes # (Manual) Eosinophils # (Manual) Nucleated RBC % Basophils # (Manual) PT INR APTT Heparin Anti-Xa Level 0.21 L ABG pH POC ABG pO2 ABG pO2 ABG HCO3 ABG O2 Saturation ABG Base Excess POC ABG pCO2 ABG Hemoglobin ABG Oxyhemoglobin ABG Chloride ABG Glucose Oxyhemoglobin Sodium Potassium Chloride Carbon Dioxide BUN Creatinine Glucose POC Glucose 192 H 151 H Lactic Acid Calcium Phosphorus Magnesium AST ALT Lactate Dehydrogenase Total Bilirubin Direct Bilirubin CK-MB (CK-2) C-Reactive Protein NT-Pro-B Natriuret Pep Total Protein Albumin Arterial Blood Glucose Urine WBC (Auto) Urine Creatinine 12/24/19 12/24/1920 05:34 12:13 16:50 WBC RBC Hgb Hct MCHC RDW MCV MCH Lymph % (Auto) [place] % (Auto) [place] # Eos # Lymph # (Auto) [place] # (Auto) Eos # (Auto) Seg Neutrophils % Seg Neuts % (Manual) Baso # (Auto) Lymphocytes % (Manual) Monocytes % (Manual) Eosinophils % (Manual) Basophils % (Manual) Seg Neutrophils # Seg Neutrophils # Man Lymphocytes # (Manual) Monocytes # (Manual) Eosinophils # (Manual) Nucleated RBC % Basophils # (Manual) PT INR APTT Heparin Anti-Xa Level 0.16 L ABG pH POC ABG pO2 ABG pO2 ABG HCO3 ABG O2 Saturation ABG Base Excess POC ABG pCO2 ABG Hemoglobin ABG Oxyhemoglobin ABG Chloride ABG Glucose Oxyhemoglobin Sodium Potassium Chloride Carbon Dioxide BUN Creatinine Glucose POC Glucose 145 H 124 H Lactic Acid Calcium Phosphorus Magnesium AST ALT Lactate Dehydrogenase Total Bilirubin Direct Bilirubin CK-MB (CK-2) C-Reactive Protein NT-Pro-B Natriuret Pep Total Protein Albumin Arterial Blood Glucose Urine WBC (Auto) Urine Creatinine 12/24/19 12/25/19 12/25/19 17:53 00:14 04:18 WBC 12.9 H RBC 3.30 L Hgb 9.1 L Hct 28.8 L MCHC RDW 16.4 H MCV MCH Lymph % (Auto) [place] % (Auto) 7.8 H [place] # Eos # Lymph # (Auto) [place] # (Auto) 1.0 H Eos # (Auto) Seg Neutrophils % 75.5 H Seg Neuts % (Manual) Baso # (Auto) Lymphocytes % (Manual) Monocytes % (Manual) Eosinophils % (Manual) Basophils % (Manual) Seg Neutrophils # 9.7 H Seg Neutrophils # Man Lymphocytes # (Manual) Monocytes # (Manual) Eosinophils # (Manual) Nucleated RBC % Basophils # (Manual) PT INR APTT Heparin Anti-Xa Level ABG pH POC ABG pO2 ABG pO2 ABG HCO3 ABG O2 Saturation ABG Base Excess POC ABG pCO2 ABG Hemoglobin ABG Oxyhemoglobin ABG Chloride ABG Glucose Oxyhemoglobin Sodium Potassium Chloride Carbon Dioxide BUN Creatinine Glucose POC Glucose 164 H 148 H Lactic Acid Calcium Phosphorus Magnesium AST ALT Lactate Dehydrogenase Total Bilirubin Direct Bilirubin CK-MB (CK-2) C-Reactive Protein NT-Pro-B Natriuret Pep Total Protein Albumin Arterial Blood Glucose Urine WBC (Auto) Urine Creatinine 12/25/19 12/25/19 12/25/19 04:18 05:38 11:44 WBC RBC Hgb Hct MCHC RDW MCV MCH Lymph % (Auto) [place] % (Auto) [place] # Eos # Lymph # (Auto) [place] # (Auto) Eos # (Auto) Seg Neutrophils % Seg Neuts % (Manual) Baso # (Auto) Lymphocytes % (Manual) Monocytes % (Manual) Eosinophils % (Manual) Basophils % (Manual) Seg Neutrophils # Seg Neutrophils # Man Lymphocytes # (Manual) Monocytes # (Manual) Eosinophils # (Manual) Nucleated RBC % Basophils # (Manual) PT INR APTT Heparin Anti-Xa Level ABG pH POC ABG pO2 ABG pO2 ABG HCO3 ABG O2 Saturation ABG Base Excess POC ABG pCO2 ABG Hemoglobin ABG Oxyhemoglobin ABG Chloride ABG Glucose Oxyhemoglobin Sodium Potassium Chloride Carbon Dioxide 33 H BUN 27 H Creatinine 0.6 L Glucose 132 H POC Glucose 152 H 166 H Lactic Acid Calcium Phosphorus Magnesium AST ALT Lactate Dehydrogenase Total Bilirubin Direct Bilirubin CK-MB (CK-2) C-Reactive Protein NT-Pro-B Natriuret Pep Total Protein Albumin Arterial Blood Glucose Urine WBC (Auto) Urine Creatinine 12/25/19 12/26/19 12/26/19 18:29 00:17 00:18 WBC RBC Hgb Hct MCHC RDW MCV MCH Lymph % (Auto) [place] % (Auto) [place] # Eos # Lymph # (Auto) [place] # (Auto) Eos # (Auto) Seg Neutrophils % Seg Neuts % (Manual) Baso # (Auto) Lymphocytes % (Manual) Monocytes % (Manual) Eosinophils % (Manual) Basophils % (Manual) Seg Neutrophils # Seg Neutrophils # Man Lymphocytes # (Manual) Monocytes # (Manual) Eosinophils # (Manual) Nucleated RBC % Basophils # (Manual) PT INR APTT Heparin Anti-Xa Level ABG pH POC ABG pO2 ABG pO2 ABG HCO3 ABG O2 Saturation ABG Base Excess POC ABG pCO2 ABG Hemoglobin ABG Oxyhemoglobin ABG Chloride ABG Glucose Oxyhemoglobin Sodium Potassium Chloride 97.8 L Carbon Dioxide BUN 25 H Creatinine 0.6 L Glucose 140 H POC Glucose 194 H 151 H Lactic Acid Calcium Phosphorus Magnesium AST ALT Lactate Dehydrogenase Total Bilirubin Direct Bilirubin CK-MB (CK-2) C-Reactive Protein NT-Pro-B Natriuret Pep Total Protein Albumin Arterial Blood Glucose Urine WBC (Auto) Urine Creatinine 12/26/19 12/26/19 12/26/19 05:36 11:41 17:50 WBC RBC Hgb Hct MCHC RDW MCV MCH Lymph % (Auto) [place] % (Auto) [place] # Eos # Lymph # (Auto) [place] # (Auto) Eos # (Auto) Seg Neutrophils % Seg Neuts % (Manual) Baso # (Auto) Lymphocytes % (Manual) Monocytes % (Manual) Eosinophils % (Manual) Basophils % (Manual) Seg Neutrophils # Seg Neutrophils # Man Lymphocytes # (Manual) Monocytes # (Manual) Eosinophils # (Manual) Nucleated RBC % Basophils # (Manual) PT INR APTT Heparin Anti-Xa Level ABG pH POC ABG pO2 ABG pO2 ABG HCO3 ABG O2 Saturation ABG Base Excess POC ABG pCO2 ABG Hemoglobin ABG Oxyhemoglobin ABG Chloride ABG Glucose Oxyhemoglobin Sodium Potassium Chloride Carbon Dioxide BUN Creatinine Glucose POC Glucose 156 H 148 H 139 H Lactic Acid Calcium Phosphorus Magnesium AST ALT Lactate Dehydrogenase Total Bilirubin Direct Bilirubin CK-MB (CK-2) C-Reactive Protein NT-Pro-B Natriuret Pep Total Protein Albumin Arterial Blood Glucose Urine WBC (Auto) Urine Creatinine 12/26/19 12/27/19 12/27/19 23:19 05:34 12:02 WBC RBC Hgb Hct MCHC RDW MCV MCH Lymph % (Auto) [place] % (Auto) [place] # Eos # Lymph # (Auto) [place] # (Auto) Eos # (Auto) Seg Neutrophils % Seg Neuts % (Manual) Baso # (Auto) Lymphocytes % (Manual) Monocytes % (Manual) Eosinophils % (Manual) Basophils % (Manual) Seg Neutrophils # Seg Neutrophils # Man Lymphocytes # (Manual) Monocytes # (Manual) Eosinophils # (Manual) Nucleated RBC % Basophils # (Manual) PT INR APTT Heparin Anti-Xa Level ABG pH POC ABG pO2 ABG pO2 ABG HCO3 ABG O2 Saturation ABG Base Excess POC ABG pCO2 ABG Hemoglobin ABG Oxyhemoglobin ABG Chloride ABG Glucose Oxyhemoglobin Sodium Potassium Chloride Carbon Dioxide BUN Creatinine Glucose POC Glucose 161 H 145 H 157 H Lactic Acid Calcium Phosphorus Magnesium AST ALT Lactate Dehydrogenase Total Bilirubin Direct Bilirubin CK-MB (CK-2) C-Reactive Protein NT-Pro-B Natriuret Pep Total Protein Albumin Arterial Blood Glucose Urine WBC (Auto) Urine Creatinine 12/27/19 12/27/19 12/27/19 17:35 20:11 23:00 WBC RBC Hgb Hct MCHC RDW MCV MCH Lymph % (Auto) [place] % (Auto) [place] # Eos # Lymph # (Auto) [place] # (Auto) Eos # (Auto) Seg Neutrophils % Seg Neuts % (Manual) Baso # (Auto) Lymphocytes % (Manual) Monocytes % (Manual) Eosinophils % (Manual) Basophils % (Manual) Seg Neutrophils # Seg Neutrophils # Man Lymphocytes # (Manual) Monocytes # (Manual) Eosinophils # (Manual) Nucleated RBC % Basophils # (Manual) PT INR APTT Heparin Anti-Xa Level 0.19 L ABG pH POC ABG pO2 ABG pO2 ABG HCO3 ABG O2 Saturation ABG Base Excess POC ABG pCO2 ABG Hemoglobin ABG Oxyhemoglobin ABG Chloride ABG Glucose Oxyhemoglobin Sodium Potassium Chloride Carbon Dioxide BUN Creatinine Glucose POC Glucose 158 H 155 H Lactic Acid Calcium Phosphorus Magnesium AST ALT Lactate Dehydrogenase Total Bilirubin Direct Bilirubin CK-MB (CK-2) C-Reactive Protein NT-Pro-B Natriuret Pep Total Protein Albumin Arterial Blood Glucose Urine WBC (Auto) Urine Creatinine 12/27/19 12/28/19 12/28/19 23:45 02:41 02:41 WBC 13.0 H RBC 3.48 L Hgb 9.5 L Hct 30.6 L MCHC 31 L RDW 16.6 H MCV MCH 27 L Lymph % (Auto) 13.0 L [place] % (Auto) 8.0 H [place] # Eos # Lymph # (Auto) [place] # (Auto) 1.0 H Eos # (Auto) Seg Neutrophils % 76.3 H Seg Neuts % (Manual) Baso # (Auto) Lymphocytes % (Manual) Monocytes % (Manual) Eosinophils % (Manual) Basophils % (Manual) Seg Neutrophils # 9.9 H Seg Neutrophils # Man Lymphocytes # (Manual) Monocytes # (Manual) Eosinophils # (Manual) Nucleated RBC % Basophils # (Manual) PT INR APTT Heparin Anti-Xa Level ABG pH POC ABG pO2 ABG pO2 ABG HCO3 ABG O2 Saturation ABG Base Excess POC ABG pCO2 ABG Hemoglobin ABG Oxyhemoglobin ABG Chloride ABG Glucose Oxyhemoglobin Sodium Potassium Chloride Carbon Dioxide BUN 22 H Creatinine 0.6 L Glucose 101 H POC Glucose 130 H Lactic Acid Calcium Phosphorus Magnesium AST ALT Lactate Dehydrogenase Total Bilirubin Direct Bilirubin CK-MB (CK-2) C-Reactive Protein NT-Pro-B Natriuret Pep Total Protein Albumin Arterial Blood Glucose Urine WBC (Auto) Urine Creatinine 12/28/19 12/28/19 12/28/19 06:00 12:34 18:13 WBC RBC Hgb Hct MCHC RDW MCV MCH Lymph % (Auto) [place] % (Auto) [place] # Eos # Lymph # (Auto) [place] # (Auto) Eos # (Auto) Seg Neutrophils % Seg Neuts % (Manual) Baso # (Auto) Lymphocytes % (Manual) Monocytes % (Manual) Eosinophils % (Manual) Basophils % (Manual) Seg Neutrophils # Seg Neutrophils # Man Lymphocytes # (Manual) Monocytes # (Manual) Eosinophils # (Manual) Nucleated RBC % Basophils # (Manual) PT INR APTT Heparin Anti-Xa Level ABG pH POC ABG pO2 ABG pO2 ABG HCO3 ABG O2 Saturation ABG Base Excess POC ABG pCO2 ABG Hemoglobin ABG Oxyhemoglobin ABG Chloride ABG Glucose Oxyhemoglobin Sodium Potassium Chloride Carbon Dioxide BUN Creatinine Glucose POC Glucose 150 H 161 H 128 H Lactic Acid Calcium Phosphorus Magnesium AST ALT Lactate Dehydrogenase Total Bilirubin Direct Bilirubin CK-MB (CK-2) C-Reactive Protein NT-Pro-B Natriuret Pep Total Protein Albumin Arterial Blood Glucose Urine WBC (Auto) Urine Creatinine 12/28/19 12/29/19 12/29/19 23:36 05:21 11:40 WBC RBC Hgb Hct MCHC RDW MCV MCH Lymph % (Auto) [place] % (Auto) [place] # Eos # Lymph # (Auto) [place] # (Auto) Eos # (Auto) Seg Neutrophils % Seg Neuts % (Manual) Baso # (Auto) Lymphocytes % (Manual) Monocytes % (Manual) Eosinophils % (Manual) Basophils % (Manual) Seg Neutrophils # Seg Neutrophils # Man Lymphocytes # (Manual) Monocytes # (Manual) Eosinophils # (Manual) Nucleated RBC % Basophils # (Manual) PT INR APTT Heparin Anti-Xa Level ABG pH POC ABG pO2 ABG pO2 ABG HCO3 ABG O2 Saturation ABG Base Excess POC ABG pCO2 ABG Hemoglobin ABG Oxyhemoglobin ABG Chloride ABG Glucose Oxyhemoglobin Sodium Potassium Chloride Carbon Dioxide BUN Creatinine Glucose POC Glucose 137 H 136 H 166 H Lactic Acid Calcium Phosphorus Magnesium AST ALT Lactate Dehydrogenase Total Bilirubin Direct Bilirubin CK-MB (CK-2) C-Reactive Protein NT-Pro-B Natriuret Pep Total Protein Albumin Arterial Blood Glucose Urine WBC (Auto) Urine Creatinine 12/29/19 12/29/19 12/29/19 17:23 19:21 23:38 WBC RBC Hgb Hct MCHC RDW MCV MCH Lymph % (Auto) [place] % (Auto) [place] # Eos # Lymph # (Auto) [place] # (Auto) Eos # (Auto) Seg Neutrophils % Seg Neuts % (Manual) Baso # (Auto) Lymphocytes % (Manual) Monocytes % (Manual) Eosinophils % (Manual) Basophils % (Manual) Seg Neutrophils # Seg Neutrophils # Man Lymphocytes # (Manual) Monocytes # (Manual) Eosinophils # (Manual) Nucleated RBC % Basophils # (Manual) PT INR APTT Heparin Anti-Xa Level 0.20 L ABG pH POC ABG pO2 ABG pO2 ABG HCO3 ABG O2 Saturation ABG Base Excess POC ABG pCO2 ABG Hemoglobin ABG Oxyhemoglobin ABG Chloride ABG Glucose Oxyhemoglobin Sodium Potassium Chloride Carbon Dioxide BUN Creatinine Glucose POC Glucose 144 H 141 H Lactic Acid Calcium Phosphorus Magnesium AST ALT Lactate Dehydrogenase Total Bilirubin Direct Bilirubin CK-MB (CK-2) C-Reactive Protein NT-Pro-B Natriuret Pep Total Protein Albumin Arterial Blood Glucose Urine WBC (Auto) Urine Creatinine 12/30/19 12/30/19 12/30/19 03:58 03:58 04:59 WBC RBC 3.54 L Hgb 9.8 L Hct 30.7 L MCHC RDW 16.8 H MCV MCH Lymph % (Auto) [place] % (Auto) [place] # Eos # Lymph # (Auto) [place] # (Auto) Eos # (Auto) Seg Neutrophils % Seg Neuts % (Manual) Baso # (Auto) Lymphocytes % (Manual) Monocytes % (Manual) Eosinophils % (Manual) Basophils % (Manual) Seg Neutrophils # Seg Neutrophils # Man Lymphocytes # (Manual) Monocytes # (Manual) Eosinophils # (Manual) Nucleated RBC % Basophils # (Manual) PT INR APTT Heparin Anti-Xa Level ABG pH POC ABG pO2 ABG pO2 ABG HCO3 29.8 H ABG O2 Saturation ABG Base Excess 4.8 H POC ABG pCO2 ABG Hemoglobin 11.2 L ABG Oxyhemoglobin ABG Chloride ABG Glucose Oxyhemoglobin 93.8 L Sodium Potassium Chloride 97.8 L Carbon Dioxide BUN 26 H Creatinine Glucose 168 H POC Glucose Lactic Acid Calcium Phosphorus Magnesium AST ALT Lactate Dehydrogenase Total Bilirubin Direct Bilirubin CK-MB (CK-2) C-Reactive Protein NT-Pro-B Natriuret Pep Total Protein Albumin Arterial Blood Glucose Urine WBC (Auto) Urine Creatinine 12/30/19 12/30/19 12/30/19 05:45 11:34 17:28 WBC RBC Hgb Hct MCHC RDW MCV MCH Lymph % (Auto) [place] % (Auto) [place] # Eos # Lymph # (Auto) [place] # (Auto) Eos # (Auto) Seg Neutrophils % Seg Neuts % (Manual) Baso # (Auto) Lymphocytes % (Manual) Monocytes % (Manual) Eosinophils % (Manual) Basophils % (Manual) Seg Neutrophils # Seg Neutrophils # Man Lymphocytes # (Manual) Monocytes # (Manual) Eosinophils # (Manual) Nucleated RBC % Basophils # (Manual) PT INR APTT Heparin Anti-Xa Level ABG pH POC ABG pO2 ABG pO2 ABG HCO3 ABG O2 Saturation ABG Base Excess POC ABG pCO2 ABG Hemoglobin ABG Oxyhemoglobin ABG Chloride ABG Glucose Oxyhemoglobin Sodium Potassium Chloride Carbon Dioxide BUN Creatinine Glucose POC Glucose 163 H 180 H 150 H Lactic Acid Calcium Phosphorus Magnesium AST ALT Lactate Dehydrogenase Total Bilirubin Direct Bilirubin CK-MB (CK-2) C-Reactive Protein NT-Pro-B Natriuret Pep Total Protein Albumin Arterial Blood Glucose Urine WBC (Auto) Urine Creatinine 12/30/19 12/31/19 12/31/19 23:43 04:55 05:07 WBC RBC Hgb Hct MCHC RDW MCV MCH Lymph % (Auto) [place] % (Auto) [place] # Eos # Lymph # (Auto) [place] # (Auto) Eos # (Auto) Seg Neutrophils % Seg Neuts % (Manual) Baso # (Auto) Lymphocytes % (Manual) Monocytes % (Manual) Eosinophils % (Manual) Basophils % (Manual) Seg Neutrophils # Seg Neutrophils # Man Lymphocytes # (Manual) Monocytes # (Manual) Eosinophils # (Manual) Nucleated RBC % Basophils # (Manual) PT INR APTT Heparin Anti-Xa Level ABG pH POC ABG pO2 ABG pO2 ABG HCO3 ABG O2 Saturation ABG Base Excess POC ABG pCO2 ABG Hemoglobin ABG Oxyhemoglobin ABG Chloride ABG Glucose Oxyhemoglobin Sodium Potassium 5.6 H D Chloride Carbon Dioxide BUN 33 H Creatinine Glucose 131 H POC Glucose 142 H 134 H Lactic Acid Calcium Phosphorus Magnesium AST ALT Lactate Dehydrogenase Total Bilirubin Direct Bilirubin CK-MB (CK-2) C-Reactive Protein NT-Pro-B Natriuret Pep Total Protein Albumin Arterial Blood Glucose Urine WBC (Auto) Urine Creatinine 12/31/19 12/31/19 12/31/19 11:30 17:19 17:36 WBC RBC Hgb Hct MCHC RDW MCV MCH Lymph % (Auto) [place] % (Auto) [place] # Eos # Lymph # (Auto) [place] # (Auto) Eos # (Auto) Seg Neutrophils % Seg Neuts % (Manual) Baso # (Auto) Lymphocytes % (Manual) Monocytes % (Manual) Eosinophils % (Manual) Basophils % (Manual) Seg Neutrophils # Seg Neutrophils # Man Lymphocytes # (Manual) Monocytes # (Manual) Eosinophils # (Manual) Nucleated RBC % Basophils # (Manual) PT INR APTT Heparin Anti-Xa Level ABG pH POC ABG pO2 ABG pO2 ABG HCO3 ABG O2 Saturation ABG Base Excess POC ABG pCO2 ABG Hemoglobin ABG Oxyhemoglobin ABG Chloride ABG Glucose Oxyhemoglobin Sodium Potassium Chloride Carbon Dioxide BUN 35 H Creatinine Glucose 156 H POC Glucose 158 H 181 H Lactic Acid Calcium Phosphorus Magnesium AST ALT Lactate Dehydrogenase Total Bilirubin Direct Bilirubin CK-MB (CK-2) C-Reactive Protein NT-Pro-B Natriuret Pep Total Protein Albumin Arterial Blood Glucose Urine WBC (Auto) Urine Creatinine 12/31/19 12/31/19 12/31/19 18:16 19:41 21:53 WBC RBC Hgb Hct MCHC RDW MCV MCH Lymph % (Auto) [place] % (Auto) [place] # Eos # Lymph # (Auto) [place] # (Auto) Eos # (Auto) Seg Neutrophils % Seg Neuts % (Manual) Baso # (Auto) Lymphocytes % (Manual) Monocytes % (Manual) Eosinophils % (Manual) Basophils % (Manual) Seg Neutrophils # Seg Neutrophils # Man Lymphocytes # (Manual) Monocytes # (Manual) Eosinophils # (Manual) Nucleated RBC % Basophils # (Manual) PT INR APTT Heparin Anti-Xa Level 0.20 L ABG pH POC ABG pO2 ABG pO2 ABG HCO3 ABG O2 Saturation ABG Base Excess POC ABG pCO2 ABG Hemoglobin ABG Oxyhemoglobin ABG Chloride ABG Glucose Oxyhemoglobin Sodium Potassium Chloride Carbon Dioxide BUN 34 H Creatinine Glucose 169 H POC Glucose 141 H Lactic Acid Calcium Phosphorus Magnesium AST ALT Lactate Dehydrogenase Total Bilirubin Direct Bilirubin CK-MB (CK-2) C-Reactive Protein NT-Pro-B Natriuret Pep Total Protein Albumin Arterial Blood Glucose Urine WBC (Auto) Urine Creatinine 12/31/19 01/01/20 01/01/20 23:51 05:17 10:40 WBC RBC Hgb Hct MCHC RDW MCV MCH Lymph % (Auto) [place] % (Auto) [place] # Eos # Lymph # (Auto) [place] # (Auto) Eos # (Auto) Seg Neutrophils % Seg Neuts % (Manual) Baso # (Auto) Lymphocytes % (Manual) Monocytes % (Manual) Eosinophils % (Manual) Basophils % (Manual) Seg Neutrophils # Seg Neutrophils # Man Lymphocytes # (Manual) Monocytes # (Manual) Eosinophils # (Manual) Nucleated RBC % Basophils # (Manual) PT INR APTT Heparin Anti-Xa Level ABG pH POC ABG pO2 ABG pO2 ABG HCO3 ABG O2 Saturation ABG Base Excess POC ABG pCO2 ABG Hemoglobin ABG Oxyhemoglobin ABG Chloride ABG Glucose Oxyhemoglobin Sodium Potassium Chloride Carbon Dioxide BUN 31 H Creatinine 0.7 L Glucose 137 H POC Glucose 131 H 155 H Lactic Acid Calcium Phosphorus Magnesium AST 73 H ALT 97 H Lactate Dehydrogenase Total Bilirubin Direct Bilirubin CK-MB (CK-2) C-Reactive Protein NT-Pro-B Natriuret Pep 3866 H Total Protein Albumin 2.8 L Arterial Blood Glucose Urine WBC (Auto) Urine Creatinine 01/01/20 01/01/20 01/01/20 12:26 15:33 17:53 WBC 14.3 H RBC 3.35 L Hgb 9.1 L Hct 28.8 L MCHC RDW 17.0 H MCV MCH 27 L Lymph % (Auto) 7.0 L [place] % (Auto) 7.6 H [place] # Eos # Lymph # (Auto) 1.0 L [place] # (Auto) 1.1 H Eos # (Auto) Seg Neutrophils % 83.3 H Seg Neuts % (Manual) Baso # (Auto) Lymphocytes % (Manual) Monocytes % (Manual) Eosinophils % (Manual) Basophils % (Manual) Seg Neutrophils # 12.0 H Seg Neutrophils # Man Lymphocytes # (Manual) Monocytes # (Manual) Eosinophils # (Manual) Nucleated RBC % Basophils # (Manual) PT INR APTT Heparin Anti-Xa Level ABG pH POC ABG pO2 ABG pO2 ABG HCO3 ABG O2 Saturation ABG Base Excess POC ABG pCO2 ABG Hemoglobin ABG Oxyhemoglobin ABG Chloride ABG Glucose Oxyhemoglobin Sodium Potassium Chloride Carbon Dioxide BUN Creatinine Glucose POC Glucose 128 H 128 H Lactic Acid Calcium Phosphorus Magnesium AST ALT Lactate Dehydrogenase Total Bilirubin Direct Bilirubin CK-MB (CK-2) C-Reactive Protein NT-Pro-B Natriuret Pep Total Protein Albumin Arterial Blood Glucose Urine WBC (Auto) Urine Creatinine 01/01/20 01/02/20 01/02/20 23:04 05:39 07:00 WBC RBC Hgb Hct MCHC RDW MCV MCH Lymph % (Auto) [place] % (Auto) [place] # Eos # Lymph # (Auto) [place] # (Auto) Eos # (Auto) Seg Neutrophils % Seg Neuts % (Manual) Baso # (Auto) Lymphocytes % (Manual) Monocytes % (Manual) Eosinophils % (Manual) Basophils % (Manual) Seg Neutrophils # Seg Neutrophils # Man Lymphocytes # (Manual) Monocytes # (Manual) Eosinophils # (Manual) Nucleated RBC % Basophils # (Manual) PT INR APTT Heparin Anti-Xa Level 0.13 L ABG pH POC ABG pO2 ABG pO2 ABG HCO3 ABG O2 Saturation ABG Base Excess POC ABG pCO2 ABG Hemoglobin ABG Oxyhemoglobin ABG Chloride ABG Glucose Oxyhemoglobin Sodium Potassium Chloride Carbon Dioxide BUN Creatinine Glucose POC Glucose 120 H 169 H Lactic Acid Calcium Phosphorus Magnesium AST ALT Lactate Dehydrogenase Total Bilirubin Direct Bilirubin CK-MB (CK-2) C-Reactive Protein NT-Pro-B Natriuret Pep Total Protein Albumin Arterial Blood Glucose Urine WBC (Auto) Urine Creatinine 01/02/20 01/02/20 01/02/20 12:15 14:06 17:58 WBC RBC Hgb Hct MCHC RDW MCV MCH Lymph % (Auto) [place] % (Auto) [place] # Eos # Lymph # (Auto) [place] # (Auto) Eos # (Auto) Seg Neutrophils % Seg Neuts % (Manual) Baso # (Auto) Lymphocytes % (Manual) Monocytes % (Manual) Eosinophils % (Manual) Basophils % (Manual) Seg Neutrophils # Seg Neutrophils # Man Lymphocytes # (Manual) Monocytes # (Manual) Eosinophils # (Manual) Nucleated RBC % Basophils # (Manual) PT INR APTT Heparin Anti-Xa Level < 0.10 L ABG pH POC ABG pO2 ABG pO2 ABG HCO3 ABG O2 Saturation ABG Base Excess POC ABG pCO2 ABG Hemoglobin ABG Oxyhemoglobin ABG Chloride ABG Glucose Oxyhemoglobin Sodium Potassium Chloride Carbon Dioxide BUN Creatinine Glucose POC Glucose 190 H 198 H Lactic Acid Calcium Phosphorus Magnesium AST ALT Lactate Dehydrogenase Total Bilirubin Direct Bilirubin CK-MB (CK-2) C-Reactive Protein NT-Pro-B Natriuret Pep Total Protein Albumin Arterial Blood Glucose Urine WBC (Auto) Urine Creatinine 01/02/20 01/02/20 01/03/20 21:43 23:33 05:42 WBC RBC Hgb Hct MCHC RDW MCV MCH Lymph % (Auto) [place] % (Auto) [place] # Eos # Lymph # (Auto) [place] # (Auto) Eos # (Auto) Seg Neutrophils % Seg Neuts % (Manual) Baso # (Auto) Lymphocytes % (Manual) Monocytes % (Manual) Eosinophils % (Manual) Basophils % (Manual) Seg Neutrophils # Seg Neutrophils # Man Lymphocytes # (Manual) Monocytes # (Manual) Eosinophils # (Manual) Nucleated RBC % Basophils # (Manual) PT INR APTT Heparin Anti-Xa Level 0.10 L ABG pH POC ABG pO2 ABG pO2 ABG HCO3 ABG O2 Saturation ABG Base Excess POC ABG pCO2 ABG Hemoglobin ABG Oxyhemoglobin ABG Chloride ABG Glucose Oxyhemoglobin Sodium Potassium Chloride Carbon Dioxide BUN Creatinine Glucose POC Glucose 180 H 163 H Lactic Acid Calcium Phosphorus Magnesium AST ALT Lactate Dehydrogenase Total Bilirubin Direct Bilirubin CK-MB (CK-2) C-Reactive Protein NT-Pro-B Natriuret Pep Total Protein Albumin Arterial Blood Glucose Urine WBC (Auto) Urine Creatinine 01/03/20 01/03/20 01/03/20 06:50 07:25 07:45 WBC 12.1 H RBC 3.35 L Hgb 9.0 L Hct 28.9 L MCHC 31 L RDW 16.6 H MCV MCH 27 L Lymph % (Auto) 13.0 L [place] % (Auto) 8.6 H [place] # Eos # Lymph # (Auto) [place] # (Auto) 1.0 H Eos # (Auto) Seg Neutrophils % 75.9 H Seg Neuts % (Manual) Baso # (Auto) Lymphocytes % (Manual) Monocytes % (Manual) Eosinophils % (Manual) Basophils % (Manual) Seg Neutrophils # 9.2 H Seg Neutrophils # Man Lymphocytes # (Manual) Monocytes # (Manual) Eosinophils # (Manual) Nucleated RBC % Basophils # (Manual) PT INR APTT Heparin Anti-Xa Level 0.29 L ABG pH POC ABG pO2 ABG pO2 ABG HCO3 ABG O2 Saturation ABG Base Excess POC ABG pCO2 ABG Hemoglobin ABG Oxyhemoglobin ABG Chloride ABG Glucose Oxyhemoglobin Sodium Potassium 3.3 L D Chloride Carbon Dioxide 35 H D BUN 23 H Creatinine 0.6 L Glucose 149 H POC Glucose Lactic Acid Calcium Phosphorus Magnesium AST ALT 88 H Lactate Dehydrogenase Total Bilirubin Direct Bilirubin CK-MB (CK-2) C-Reactive Protein NT-Pro-B Natriuret Pep Total Protein 6.2 L Albumin 2.9 L Arterial Blood Glucose Urine WBC (Auto) Urine Creatinine 01/03/20 01/03/20 01/03/20 12:05 17:42 18:30 WBC RBC Hgb Hct MCHC RDW MCV MCH Lymph % (Auto) [place] % (Auto) [place] # Eos # Lymph # (Auto) [place] # (Auto) Eos # (Auto) Seg Neutrophils % Seg Neuts % (Manual) Baso # (Auto) Lymphocytes % (Manual) Monocytes % (Manual) Eosinophils % (Manual) Basophils % (Manual) Seg Neutrophils # Seg Neutrophils # Man Lymphocytes # (Manual) Monocytes # (Manual) Eosinophils # (Manual) Nucleated RBC % Basophils # (Manual) PT INR APTT Heparin Anti-Xa Level ABG pH POC ABG pO2 ABG pO2 70.7 L ABG HCO3 36.1 H ABG O2 Saturation 94.4 L ABG Base Excess 10.0 H POC ABG pCO2 ABG Hemoglobin 9.7 L ABG Oxyhemoglobin ABG Chloride ABG Glucose Oxyhemoglobin 91.8 L Sodium Potassium Chloride Carbon Dioxide BUN Creatinine Glucose POC Glucose 128 H 132 H Lactic Acid Calcium Phosphorus Magnesium AST ALT Lactate Dehydrogenase Total Bilirubin Direct Bilirubin CK-MB (CK-2) C-Reactive Protein NT-Pro-B Natriuret Pep Total Protein Albumin Arterial Blood Glucose Urine WBC (Auto) Urine Creatinine 01/04/20 01/04/20 01/04/20 00:10 04:26 05:23 WBC RBC Hgb Hct MCHC RDW MCV MCH Lymph % (Auto) [place] % (Auto) [place] # Eos # Lymph # (Auto) [place] # (Auto) Eos # (Auto) Seg Neutrophils % Seg Neuts % (Manual) Baso # (Auto) Lymphocytes % (Manual) Monocytes % (Manual) Eosinophils % (Manual) Basophils % (Manual) Seg Neutrophils # Seg Neutrophils # Man Lymphocytes # (Manual) Monocytes # (Manual) Eosinophils # (Manual) Nucleated RBC % Basophils # (Manual) PT INR APTT Heparin Anti-Xa Level 0.16 L ABG pH POC ABG pO2 ABG pO2 ABG HCO3 ABG O2 Saturation ABG Base Excess POC ABG pCO2 ABG Hemoglobin ABG Oxyhemoglobin ABG Chloride ABG Glucose Oxyhemoglobin Sodium Potassium Chloride Carbon Dioxide BUN Creatinine Glucose POC Glucose 121 H 119 H Lactic Acid Calcium Phosphorus Magnesium AST ALT Lactate Dehydrogenase Total Bilirubin Direct Bilirubin CK-MB (CK-2) C-Reactive Protein NT-Pro-B Natriuret Pep Total Protein Albumin Arterial Blood Glucose Urine WBC (Auto) Urine Creatinine 01/04/20 01/04/20 01/04/20 09:50 09:50 12:18 WBC 15.4 H RBC 3.30 L Hgb 8.7 L Hct 28.2 L MCHC 31 L RDW 17.0 H MCV MCH 26 L Lymph % (Auto) [place] % (Auto) 7.6 H [place] # Eos # Lymph # (Auto) [place] # (Auto) 1.2 H Eos # (Auto) Seg Neutrophils % 75.4 H Seg Neuts % (Manual) Baso # (Auto) Lymphocytes % (Manual) Monocytes % (Manual) Eosinophils % (Manual) Basophils % (Manual) Seg Neutrophils # 11.6 H Seg Neutrophils # Man Lymphocytes # (Manual) Monocytes # (Manual) Eosinophils # (Manual) Nucleated RBC % Basophils # (Manual) PT INR APTT Heparin Anti-Xa Level ABG pH POC ABG pO2 ABG pO2 ABG HCO3 ABG O2 Saturation ABG Base Excess POC ABG pCO2 ABG Hemoglobin ABG Oxyhemoglobin ABG Chloride ABG Glucose Oxyhemoglobin Sodium 148 H Potassium 3.5 L Chloride Carbon Dioxide 32 H BUN Creatinine 0.6 L Glucose 114 H POC Glucose 111 H Lactic Acid Calcium Phosphorus Magnesium AST ALT 59 H Lactate Dehydrogenase Total Bilirubin Direct Bilirubin CK-MB (CK-2) C-Reactive Protein NT-Pro-B Natriuret Pep Total Protein Albumin 2.6 L Arterial Blood Glucose Urine WBC (Auto) Urine Creatinine 01/05/20 01/05/20 01/05/20 04:05 04:05 05:19 WBC 11.7 H RBC 3.50 L Hgb 9.3 L Hct 29.9 L MCHC 31 L RDW 16.6 H MCV MCH 27 L Lymph % (Auto) 13.1 L [place] % (Auto) 9.7 H [place] # Eos # Lymph # (Auto) [place] # (Auto) 1.1 H Eos # (Auto) Seg Neutrophils % 74.0 H Seg Neuts % (Manual) Baso # (Auto) Lymphocytes % (Manual) Monocytes % (Manual) Eosinophils % (Manual) Basophils % (Manual) Seg Neutrophils # 8.6 H Seg Neutrophils # Man Lymphocytes # (Manual) Monocytes # (Manual) Eosinophils # (Manual) Nucleated RBC % Basophils # (Manual) PT INR APTT Heparin Anti-Xa Level ABG pH POC ABG pO2 ABG pO2 ABG HCO3 ABG O2 Saturation ABG Base Excess POC ABG pCO2 ABG Hemoglobin ABG Oxyhemoglobin ABG Chloride ABG Glucose Oxyhemoglobin Sodium 151 H Potassium Chloride Carbon Dioxide 34 H BUN Creatinine 0.7 L Glucose POC Glucose 112 H Lactic Acid Calcium Phosphorus Magnesium AST ALT 59 H Lactate Dehydrogenase Total Bilirubin Direct Bilirubin CK-MB (CK-2) C-Reactive Protein NT-Pro-B Natriuret Pep Total Protein 5.8 L Albumin 2.6 L Arterial Blood Glucose Urine WBC (Auto) Urine Creatinine 01/05/20 01/06/20 01/06/20 16:04 00:23 04:44 WBC RBC 3.36 L Hgb 8.9 L Hct 28.7 L MCHC 31 L RDW 16.9 H MCV MCH 26 L Lymph % (Auto) [place] % (Auto) 9.4 H [place] # Eos # Lymph # (Auto) [place] # (Auto) Eos # (Auto) Seg Neutrophils % Seg Neuts % (Manual) Baso # (Auto) Lymphocytes % (Manual) Monocytes % (Manual) Eosinophils % (Manual) Basophils % (Manual) Seg Neutrophils # Seg Neutrophils # Man Lymphocytes # (Manual) Monocytes # (Manual) Eosinophils # (Manual) Nucleated RBC % Basophils # (Manual) PT INR APTT Heparin Anti-Xa Level ABG pH POC ABG pO2 ABG pO2 ABG HCO3 ABG O2 Saturation ABG Base Excess POC ABG pCO2 ABG Hemoglobin ABG Oxyhemoglobin ABG Chloride ABG Glucose Oxyhemoglobin Sodium 151 H Potassium 3.2 L Chloride Carbon Dioxide 34 H BUN Creatinine 0.6 L Glucose POC Glucose 107 H Lactic Acid Calcium Phosphorus Magnesium AST ALT Lactate Dehydrogenase Total Bilirubin Direct Bilirubin CK-MB (CK-2) C-Reactive Protein NT-Pro-B Natriuret Pep Total Protein Albumin Arterial Blood Glucose Urine WBC (Auto) Urine Creatinine 01/06/20 01/06/20 01/06/20 04:44 05:33 12:04 WBC RBC Hgb Hct MCHC RDW MCV MCH Lymph % (Auto) [place] % (Auto) [place] # Eos # Lymph # (Auto) [place] # (Auto) Eos # (Auto) Seg Neutrophils % Seg Neuts % (Manual) Baso # (Auto) Lymphocytes % (Manual) Monocytes % (Manual) Eosinophils % (Manual) Basophils % (Manual) Seg Neutrophils # Seg Neutrophils # Man Lymphocytes # (Manual) Monocytes # (Manual) Eosinophils # (Manual) Nucleated RBC % Basophils # (Manual) PT INR APTT Heparin Anti-Xa Level ABG pH POC ABG pO2 ABG pO2 ABG HCO3 ABG O2 Saturation ABG Base Excess POC ABG pCO2 ABG Hemoglobin ABG Oxyhemoglobin ABG Chloride ABG Glucose Oxyhemoglobin Sodium 151 H Potassium 3.4 L Chloride Carbon Dioxide 33 H BUN Creatinine 0.6 L Glucose 118 H POC Glucose 118 H 123 H Lactic Acid Calcium Phosphorus Magnesium AST ALT Lactate Dehydrogenase Total Bilirubin Direct Bilirubin CK-MB (CK-2) C-Reactive Protein NT-Pro-B Natriuret Pep Total Protein 6.2 L Albumin 2.6 L Arterial Blood Glucose Urine WBC (Auto) Urine Creatinine 01/06/20 01/07/20 01/07/20 17:54 00:06 04:10 WBC RBC 3.42 L Hgb 8.9 L Hct 29.0 L MCHC 31 L RDW 17.1 H MCV MCH 26 L Lymph % (Auto) [place] % (Auto) 8.4 H [place] # Eos # Lymph # (Auto) [place] # (Auto) Eos # (Auto) Seg Neutrophils % Seg Neuts % (Manual) Baso # (Auto) Lymphocytes % (Manual) Monocytes % (Manual) Eosinophils % (Manual) Basophils % (Manual) Seg Neutrophils # Seg Neutrophils # Man Lymphocytes # (Manual) Monocytes # (Manual) Eosinophils # (Manual) Nucleated RBC % Basophils # (Manual) PT INR APTT Heparin Anti-Xa Level ABG pH POC ABG pO2 ABG pO2 ABG HCO3 ABG O2 Saturation ABG Base Excess POC ABG pCO2 ABG Hemoglobin ABG Oxyhemoglobin ABG Chloride ABG Glucose Oxyhemoglobin Sodium Potassium Chloride Carbon Dioxide BUN Creatinine Glucose POC Glucose 112 H 126 H Lactic Acid Calcium Phosphorus Magnesium AST ALT Lactate Dehydrogenase Total Bilirubin Direct Bilirubin CK-MB (CK-2) C-Reactive Protein NT-Pro-B Natriuret Pep Total Protein Albumin Arterial Blood Glucose Urine WBC (Auto) Urine Creatinine 01/07/20 01/07/20 01/07/20 04:10 05:59 12:27 WBC RBC Hgb Hct MCHC RDW MCV MCH Lymph % (Auto) [place] % (Auto) [place] # Eos # Lymph # (Auto) [place] # (Auto) Eos # (Auto) Seg Neutrophils % Seg Neuts % (Manual) Baso # (Auto) Lymphocytes % (Manual) Monocytes % (Manual) Eosinophils % (Manual) Basophils % (Manual) Seg Neutrophils # Seg Neutrophils # Man Lymphocytes # (Manual) Monocytes # (Manual) Eosinophils # (Manual) Nucleated RBC % Basophils # (Manual) PT INR APTT Heparin Anti-Xa Level ABG pH POC ABG pO2 ABG pO2 ABG HCO3 ABG O2 Saturation ABG Base Excess POC ABG pCO2 ABG Hemoglobin ABG Oxyhemoglobin ABG Chloride ABG Glucose Oxyhemoglobin Sodium 153 H Potassium 3.5 L Chloride Carbon Dioxide 34 H BUN Creatinine 0.6 L Glucose 121 H POC Glucose 121 H 126 H Lactic Acid Calcium Phosphorus Magnesium AST ALT Lactate Dehydrogenase Total Bilirubin Direct Bilirubin CK-MB (CK-2) C-Reactive Protein NT-Pro-B Natriuret Pep Total Protein 5.9 L Albumin 2.4 L Arterial Blood Glucose Urine WBC (Auto) Urine Creatinine 01/07/20 01/08/20 01/08/20 18:12 00:03 05:41 WBC RBC Hgb Hct MCHC RDW MCV MCH Lymph % (Auto) [place] % (Auto) [place] # Eos # Lymph # (Auto) [place] # (Auto) Eos # (Auto) Seg Neutrophils % Seg Neuts % (Manual) Baso # (Auto) Lymphocytes % (Manual) Monocytes % (Manual) Eosinophils % (Manual) Basophils % (Manual) Seg Neutrophils # Seg Neutrophils # Man Lymphocytes # (Manual) Monocytes # (Manual) Eosinophils # (Manual) Nucleated RBC % Basophils # (Manual) PT INR APTT Heparin Anti-Xa Level ABG pH POC ABG pO2 ABG pO2 ABG HCO3 ABG O2 Saturation ABG Base Excess POC ABG pCO2 ABG Hemoglobin ABG Oxyhemoglobin ABG Chloride ABG Glucose Oxyhemoglobin Sodium Potassium Chloride Carbon Dioxide BUN Creatinine Glucose POC Glucose 124 H 130 H 138 H Lactic Acid Calcium Phosphorus Magnesium AST ALT Lactate Dehydrogenase Total Bilirubin Direct Bilirubin CK-MB (CK-2) C-Reactive Protein NT-Pro-B Natriuret Pep Total Protein Albumin Arterial Blood Glucose Urine WBC (Auto) Urine Creatinine 01/08/20 01/08/20 01/08/20 09:28 11:42 18:21 WBC RBC Hgb Hct MCHC RDW MCV MCH Lymph % (Auto) [place] % (Auto) [place] # Eos # Lymph # (Auto) [place] # (Auto) Eos # (Auto) Seg Neutrophils % Seg Neuts % (Manual) Baso # (Auto) Lymphocytes % (Manual) Monocytes % (Manual) Eosinophils % (Manual) Basophils % (Manual) Seg Neutrophils # Seg Neutrophils # Man Lymphocytes # (Manual) Monocytes # (Manual) Eosinophils # (Manual) Nucleated RBC % Basophils # (Manual) PT INR APTT Heparin Anti-Xa Level ABG pH POC ABG pO2 ABG pO2 ABG HCO3 ABG O2 Saturation ABG Base Excess POC ABG pCO2 ABG Hemoglobin ABG Oxyhemoglobin ABG Chloride ABG Glucose Oxyhemoglobin Sodium Potassium Chloride Carbon Dioxide BUN Creatinine Glucose POC Glucose 181 H 150 H 129 H Lactic Acid Calcium Phosphorus Magnesium AST ALT Lactate Dehydrogenase Total Bilirubin Direct Bilirubin CK-MB (CK-2) C-Reactive Protein NT-Pro-B Natriuret Pep Total Protein Albumin Arterial Blood Glucose Urine WBC (Auto) Urine Creatinine 01/08/20 01/08/20 01/09/20 19:25 23:55 04:11 WBC RBC 3.43 L Hgb 8.9 L Hct 28.7 L MCHC 31 L RDW 17.6 H MCV MCH 26 L Lymph % (Auto) [place] % (Auto) 8.6 H [place] # Eos # Lymph # (Auto) [place] # (Auto) Eos # (Auto) Seg Neutrophils % Seg Neuts % (Manual) Baso # (Auto) Lymphocytes % (Manual) Monocytes % (Manual) Eosinophils % (Manual) Basophils % (Manual) Seg Neutrophils # Seg Neutrophils # Man Lymphocytes # (Manual) Monocytes # (Manual) Eosinophils # (Manual) Nucleated RBC % Basophils # (Manual) PT INR APTT Heparin Anti-Xa Level ABG pH POC ABG pO2 ABG pO2 ABG HCO3 ABG O2 Saturation ABG Base Excess POC ABG pCO2 ABG Hemoglobin ABG Oxyhemoglobin ABG Chloride ABG Glucose Oxyhemoglobin Sodium Potassium Chloride Carbon Dioxide BUN Creatinine 0.7 L Glucose 117 H POC Glucose 132 H Lactic Acid Calcium Phosphorus Magnesium AST ALT Lactate Dehydrogenase Total Bilirubin Direct Bilirubin CK-MB (CK-2) C-Reactive Protein NT-Pro-B Natriuret Pep Total Protein Albumin Arterial Blood Glucose Urine WBC (Auto) Urine Creatinine 01/09/20 01/09/20 01/09/20 04:11 05:38 22:58 WBC RBC Hgb Hct MCHC RDW MCV MCH Lymph % (Auto) [place] % (Auto) [place] # Eos # Lymph # (Auto) [place] # (Auto) Eos # (Auto) Seg Neutrophils % Seg Neuts % (Manual) Baso # (Auto) Lymphocytes % (Manual) Monocytes % (Manual) Eosinophils % (Manual) Basophils % (Manual) Seg Neutrophils # Seg Neutrophils # Man Lymphocytes # (Manual) Monocytes # (Manual) Eosinophils # (Manual) Nucleated RBC % Basophils # (Manual) PT INR APTT Heparin Anti-Xa Level ABG pH POC ABG pO2 ABG pO2 ABG HCO3 ABG O2 Saturation ABG Base Excess POC ABG pCO2 ABG Hemoglobin ABG Oxyhemoglobin ABG Chloride ABG Glucose Oxyhemoglobin Sodium 147 H Potassium 3.3 L D Chloride Carbon Dioxide 32 H BUN Creatinine 0.6 L Glucose 106 H POC Glucose 107 H 113 H Lactic Acid Calcium Phosphorus Magnesium AST ALT Lactate Dehydrogenase Total Bilirubin Direct Bilirubin CK-MB (CK-2) C-Reactive Protein NT-Pro-B Natriuret Pep Total Protein Albumin Arterial Blood Glucose Urine WBC (Auto) Urine Creatinine 01/10/20 01/10/20 01/10/20 04:05 11:36 17:54 WBC RBC Hgb Hct MCHC RDW MCV MCH Lymph % (Auto) [place] % (Auto) [place] # Eos # Lymph # (Auto) [place] # (Auto) Eos # (Auto) Seg Neutrophils % Seg Neuts % (Manual) Baso # (Auto) Lymphocytes % (Manual) Monocytes % (Manual) Eosinophils % (Manual) Basophils % (Manual) Seg Neutrophils # Seg Neutrophils # Man Lymphocytes # (Manual) Monocytes # (Manual) Eosinophils # (Manual) Nucleated RBC % Basophils # (Manual) PT INR APTT Heparin Anti-Xa Level ABG pH POC ABG pO2 ABG pO2 ABG HCO3 ABG O2 Saturation ABG Base Excess POC ABG pCO2 ABG Hemoglobin ABG Oxyhemoglobin ABG Chloride ABG Glucose Oxyhemoglobin Sodium Potassium Chloride Carbon Dioxide BUN Creatinine 0.7 L Glucose 110 H POC Glucose 129 H 117 H Lactic Acid Calcium Phosphorus Magnesium AST ALT Lactate Dehydrogenase Total Bilirubin Direct Bilirubin CK-MB (CK-2) C-Reactive Protein NT-Pro-B Natriuret Pep Total Protein Albumin Arterial Blood Glucose Urine WBC (Auto) Urine Creatinine 01/10/20 01/11/20 01/11/20 23:52 03:19 12:09 WBC RBC Hgb Hct MCHC RDW MCV MCH Lymph % (Auto) [place] % (Auto) [place] # Eos # Lymph # (Auto) [place] # (Auto) Eos # (Auto) Seg Neutrophils % Seg Neuts % (Manual) Baso # (Auto) Lymphocytes % (Manual) Monocytes % (Manual) Eosinophils % (Manual) Basophils % (Manual) Seg Neutrophils # Seg Neutrophils # Man Lymphocytes # (Manual) Monocytes # (Manual) Eosinophils # (Manual) Nucleated RBC % Basophils # (Manual) PT INR APTT Heparin Anti-Xa Level ABG pH POC ABG pO2 ABG pO2 ABG HCO3 ABG O2 Saturation ABG Base Excess POC ABG pCO2 ABG Hemoglobin ABG Oxyhemoglobin ABG Chloride ABG Glucose Oxyhemoglobin Sodium Potassium Chloride Carbon Dioxide BUN Creatinine Glucose POC Glucose 117 H 136 H 115 H Lactic Acid Calcium Phosphorus Magnesium AST ALT Lactate Dehydrogenase Total Bilirubin Direct Bilirubin CK-MB (CK-2) C-Reactive Protein NT-Pro-B Natriuret Pep Total Protein Albumin Arterial Blood Glucose Urine WBC (Auto) Urine Creatinine 01/11/20 01/11/20 01/12/20 18:27 23:28 00:23 WBC RBC Hgb 9.8 L Hct 31.6 L MCHC 31 L RDW 17.8 H MCV 83 L MCH 26 L Lymph % (Auto) [place] % (Auto) 8.0 H [place] # Eos # Lymph # (Auto) [place] # (Auto) Eos # (Auto) Seg Neutrophils % Seg Neuts % (Manual) Baso # (Auto) Lymphocytes % (Manual) Monocytes % (Manual) Eosinophils % (Manual) Basophils % (Manual) Seg Neutrophils # Seg Neutrophils # Man Lymphocytes # (Manual) Monocytes # (Manual) Eosinophils # (Manual) Nucleated RBC % Basophils # (Manual) PT INR APTT Heparin Anti-Xa Level ABG pH POC ABG pO2 ABG pO2 ABG HCO3 ABG O2 Saturation ABG Base Excess POC ABG pCO2 ABG Hemoglobin ABG Oxyhemoglobin ABG Chloride ABG Glucose Oxyhemoglobin Sodium Potassium Chloride Carbon Dioxide BUN Creatinine Glucose POC Glucose 118 H 122 H Lactic Acid Calcium Phosphorus Magnesium AST ALT Lactate Dehydrogenase Total Bilirubin Direct Bilirubin CK-MB (CK-2) C-Reactive Protein NT-Pro-B Natriuret Pep Total Protein Albumin Arterial Blood Glucose Urine WBC (Auto) Urine Creatinine 01/12/20 01/12/20 01/12/20 00:23 04:18 04:18 WBC RBC Hgb 9.6 L Hct 30.9 L MCHC 31 L RDW 17.3 H MCV 81 L MCH 25 L Lymph % (Auto) [place] % (Auto) [place] # Eos # Lymph # (Auto) [place] # (Auto) Eos # (Auto) Seg Neutrophils % Seg Neuts % (Manual) Baso # (Auto) Lymphocytes % (Manual) Monocytes % (Manual) Eosinophils % (Manual) Basophils % (Manual) Seg Neutrophils # Seg Neutrophils # Man Lymphocytes # (Manual) Monocytes # (Manual) Eosinophils # (Manual) Nucleated RBC % Basophils # (Manual) PT INR APTT Heparin Anti-Xa Level ABG pH POC ABG pO2 ABG pO2 ABG HCO3 ABG O2 Saturation ABG Base Excess POC ABG pCO2 ABG Hemoglobin ABG Oxyhemoglobin ABG Chloride ABG Glucose Oxyhemoglobin Sodium Potassium Chloride Carbon Dioxide BUN Creatinine 0.7 L 0.7 L Glucose 111 H 108 H POC Glucose Lactic Acid Calcium Phosphorus Magnesium AST ALT Lactate Dehydrogenase Total Bilirubin Direct Bilirubin CK-MB (CK-2) C-Reactive Protein NT-Pro-B Natriuret Pep Total Protein Albumin 2.6 L Arterial Blood Glucose Urine WBC (Auto) Urine Creatinine 01/12/20 01/12/20 01/12/20 06:03 12:27 13:58 WBC RBC Hgb Hct MCHC RDW MCV MCH Lymph % (Auto) [place] % (Auto) [place] # Eos # Lymph # (Auto) [place] # (Auto) Eos # (Auto) Seg Neutrophils % Seg Neuts % (Manual) Baso # (Auto) Lymphocytes % (Manual) Monocytes % (Manual) Eosinophils % (Manual) Basophils % (Manual) Seg Neutrophils # Seg Neutrophils # Man Lymphocytes # (Manual) Monocytes # (Manual) Eosinophils # (Manual) Nucleated RBC % Basophils # (Manual) PT INR APTT Heparin Anti-Xa Level ABG pH 7.453 H POC ABG pO2 76.6 L ABG pO2 ABG HCO3 ABG O2 Saturation ABG Base Excess POC ABG pCO2 ABG Hemoglobin 10.3 L ABG Oxyhemoglobin ABG Chloride ABG Glucose 99 H Oxyhemoglobin Sodium Potassium Chloride Carbon Dioxide BUN Creatinine Glucose POC Glucose 128 H 121 H Lactic Acid Calcium Phosphorus Magnesium AST ALT Lactate Dehydrogenase Total Bilirubin Direct Bilirubin CK-MB (CK-2) C-Reactive Protein NT-Pro-B Natriuret Pep Total Protein Albumin Arterial Blood Glucose 99 H Urine WBC (Auto) Urine Creatinine 01/12/20 01/13/20 01/13/20 18:24 12:01 17:46 WBC RBC Hgb Hct MCHC RDW MCV MCH Lymph % (Auto) [place] % (Auto) [place] # Eos # Lymph # (Auto) [place] # (Auto) Eos # (Auto) Seg Neutrophils % Seg Neuts % (Manual) Baso # (Auto) Lymphocytes % (Manual) Monocytes % (Manual) Eosinophils % (Manual) Basophils % (Manual) Seg Neutrophils # Seg Neutrophils # Man Lymphocytes # (Manual) Monocytes # (Manual) Eosinophils # (Manual) Nucleated RBC % Basophils # (Manual) PT INR APTT Heparin Anti-Xa Level ABG pH POC ABG pO2 ABG pO2 ABG HCO3 ABG O2 Saturation ABG Base Excess POC ABG pCO2 ABG Hemoglobin ABG Oxyhemoglobin ABG Chloride ABG Glucose Oxyhemoglobin Sodium Potassium Chloride Carbon Dioxide BUN Creatinine Glucose POC Glucose 119 H 107 H 124 H Lactic Acid Calcium Phosphorus Magnesium AST ALT Lactate Dehydrogenase Total Bilirubin Direct Bilirubin CK-MB (CK-2) C-Reactive Protein NT-Pro-B Natriuret Pep Total Protein Albumin Arterial Blood Glucose Urine WBC (Auto) Urine Creatinine 01/13/20 01/14/20 01/14/20 20:40 00:10 05:33 WBC RBC Hgb Hct MCHC RDW MCV MCH Lymph % (Auto) [place] % (Auto) [place] # Eos # Lymph # (Auto) [place] # (Auto) Eos # (Auto) Seg Neutrophils % Seg Neuts % (Manual) Baso # (Auto) Lymphocytes % (Manual) Monocytes % (Manual) Eosinophils % (Manual) Basophils % (Manual) Seg Neutrophils # Seg Neutrophils # Man Lymphocytes # (Manual) Monocytes # (Manual) Eosinophils # (Manual) Nucleated RBC % Basophils # (Manual) PT INR APTT Heparin Anti-Xa Level ABG pH POC ABG pO2 ABG pO2 65.3 L ABG HCO3 31.8 H ABG O2 Saturation 93.5 L ABG Base Excess 6.7 H POC ABG pCO2 ABG Hemoglobin 13.3 L ABG Oxyhemoglobin ABG Chloride ABG Glucose Oxyhemoglobin 90.9 L Sodium Potassium Chloride Carbon Dioxide BUN Creatinine Glucose POC Glucose 111 H 111 H Lactic Acid Calcium Phosphorus Magnesium AST ALT Lactate Dehydrogenase Total Bilirubin Direct Bilirubin CK-MB (CK-2) C-Reactive Protein NT-Pro-B Natriuret Pep Total Protein Albumin Arterial Blood Glucose Urine WBC (Auto) Urine Creatinine 01/14/20 01/14/20 01/14/20 12:10 16:14 16:14 WBC RBC Hgb 10.6 L Hct 34.2 L MCHC 31 L RDW 18.3 H MCV 83 L MCH 26 L Lymph % (Auto) [place] % (Auto) 7.4 H [place] # Eos # Lymph # (Auto) [place] # (Auto) Eos # (Auto) Seg Neutrophils % 71.9 H Seg Neuts % (Manual) Baso # (Auto) Lymphocytes % (Manual) Monocytes % (Manual) Eosinophils % (Manual) Basophils % (Manual) Seg Neutrophils # Seg Neutrophils # Man Lymphocytes # (Manual) Monocytes # (Manual) Eosinophils # (Manual) Nucleated RBC % Basophils # (Manual) PT INR APTT Heparin Anti-Xa Level ABG pH POC ABG pO2 ABG pO2 ABG HCO3 ABG O2 Saturation ABG Base Excess POC ABG pCO2 ABG Hemoglobin ABG Oxyhemoglobin ABG Chloride ABG Glucose Oxyhemoglobin Sodium Potassium Chloride Carbon Dioxide 31 H BUN Creatinine 0.6 L Glucose 131 H POC Glucose 139 H Lactic Acid Calcium Phosphorus Magnesium AST ALT Lactate Dehydrogenase Total Bilirubin Direct Bilirubin CK-MB (CK-2) C-Reactive Protein NT-Pro-B Natriuret Pep Total Protein Albumin Arterial Blood Glucose Urine WBC (Auto) Urine Creatinine 01/14/20 01/15/20 01/15/20 18:05 00:52 05:35 WBC RBC Hgb Hct MCHC RDW MCV MCH Lymph % (Auto) [place] % (Auto) [place] # Eos # Lymph # (Auto) [place] # (Auto) Eos # (Auto) Seg Neutrophils % Seg Neuts % (Manual) Baso # (Auto) Lymphocytes % (Manual) Monocytes % (Manual) Eosinophils % (Manual) Basophils % (Manual) Seg Neutrophils # Seg Neutrophils # Man Lymphocytes # (Manual) Monocytes # (Manual) Eosinophils # (Manual) Nucleated RBC % Basophils # (Manual) PT INR APTT Heparin Anti-Xa Level ABG pH POC ABG pO2 ABG pO2 ABG HCO3 ABG O2 Saturation ABG Base Excess POC ABG pCO2 ABG Hemoglobin ABG Oxyhemoglobin ABG Chloride ABG Glucose Oxyhemoglobin Sodium Potassium Chloride Carbon Dioxide BUN Creatinine Glucose POC Glucose 147 H 140 H 159 H Lactic Acid Calcium Phosphorus Magnesium AST ALT Lactate Dehydrogenase Total Bilirubin Direct Bilirubin CK-MB (CK-2) C-Reactive Protein NT-Pro-B Natriuret Pep Total Protein Albumin Arterial Blood Glucose Urine WBC (Auto) Urine Creatinine 01/15/20 01/15/20 01/16/20 12:52 17:43 00:32 WBC RBC Hgb Hct MCHC RDW MCV MCH Lymph % (Auto) [place] % (Auto) [place] # Eos # Lymph # (Auto) [place] # (Auto) Eos # (Auto) Seg Neutrophils % Seg Neuts % (Manual) Baso # (Auto) Lymphocytes % (Manual) Monocytes % (Manual) Eosinophils % (Manual) Basophils % (Manual) Seg Neutrophils # Seg Neutrophils # Man Lymphocytes # (Manual) Monocytes # (Manual) Eosinophils # (Manual) Nucleated RBC % Basophils # (Manual) PT INR APTT Heparin Anti-Xa Level ABG pH POC ABG pO2 ABG pO2 ABG HCO3 ABG O2 Saturation ABG Base Excess POC ABG pCO2 ABG Hemoglobin ABG Oxyhemoglobin ABG Chloride ABG Glucose Oxyhemoglobin Sodium Potassium Chloride Carbon Dioxide BUN Creatinine Glucose POC Glucose 164 H 167 H 153 H Lactic Acid Calcium Phosphorus Magnesium AST ALT Lactate Dehydrogenase Total Bilirubin Direct Bilirubin CK-MB (CK-2) C-Reactive Protein NT-Pro-B Natriuret Pep Total Protein Albumin Arterial Blood Glucose Urine WBC (Auto) Urine Creatinine 01/16/20 01/16/20 01/17/20 05:46 11:48 06:38 WBC RBC Hgb Hct MCHC RDW MCV MCH Lymph % (Auto) [place] % (Auto) [place] # Eos # Lymph # (Auto) [place] # (Auto) Eos # (Auto) Seg Neutrophils % Seg Neuts % (Manual) Baso # (Auto) Lymphocytes % (Manual) Monocytes % (Manual) Eosinophils % (Manual) Basophils % (Manual) Seg Neutrophils # Seg Neutrophils # Man Lymphocytes # (Manual) Monocytes # (Manual) Eosinophils # (Manual) Nucleated RBC % Basophils # (Manual) PT INR APTT Heparin Anti-Xa Level ABG pH POC ABG pO2 ABG pO2 ABG HCO3 ABG O2 Saturation ABG Base Excess POC ABG pCO2 ABG Hemoglobin ABG Oxyhemoglobin ABG Chloride ABG Glucose Oxyhemoglobin Sodium Potassium Chloride Carbon Dioxide BUN Creatinine Glucose POC Glucose 163 H 155 H 116 H Lactic Acid Calcium Phosphorus Magnesium AST ALT Lactate Dehydrogenase Total Bilirubin Direct Bilirubin CK-MB (CK-2) C-Reactive Protein NT-Pro-B Natriuret Pep Total Protein Albumin Arterial Blood Glucose Urine WBC (Auto) Urine Creatinine 01/17/20 01/17/20 01/18/20 11:36 17:43 00:12 WBC RBC Hgb Hct MCHC RDW MCV MCH Lymph % (Auto) [place] % (Auto) [place] # Eos # Lymph # (Auto) [place] # (Auto) Eos # (Auto) Seg Neutrophils % Seg Neuts % (Manual) Baso # (Auto) Lymphocytes % (Manual) Monocytes % (Manual) Eosinophils % (Manual) Basophils % (Manual) Seg Neutrophils # Seg Neutrophils # Man Lymphocytes # (Manual) Monocytes # (Manual) Eosinophils # (Manual) Nucleated RBC % Basophils # (Manual) PT INR APTT Heparin Anti-Xa Level ABG pH POC ABG pO2 ABG pO2 ABG HCO3 ABG O2 Saturation ABG Base Excess POC ABG pCO2 ABG Hemoglobin ABG Oxyhemoglobin ABG Chloride ABG Glucose Oxyhemoglobin Sodium Potassium Chloride Carbon Dioxide BUN Creatinine Glucose POC Glucose 110 H 134 H 108 H Lactic Acid Calcium Phosphorus Magnesium AST ALT Lactate Dehydrogenase Total Bilirubin Direct Bilirubin CK-MB (CK-2) C-Reactive Protein NT-Pro-B Natriuret Pep Total Protein Albumin Arterial Blood Glucose Urine WBC (Auto) Urine Creatinine 01/18/20 01/18/20 01/18/20 05:37 06:46 06:46 WBC RBC Hgb 10.1 L Hct 32.2 L MCHC 31 L RDW 18.1 H MCV 81 L MCH 25 L Lymph % (Auto) [place] % (Auto) [place] # Eos # Lymph # (Auto) [place] # (Auto) Eos # (Auto) Seg Neutrophils % 71.9 H Seg Neuts % (Manual) Baso # (Auto) Lymphocytes % (Manual) Monocytes % (Manual) Eosinophils % (Manual) Basophils % (Manual) Seg Neutrophils # Seg Neutrophils # Man Lymphocytes # (Manual) Monocytes # (Manual) Eosinophils # (Manual) Nucleated RBC % Basophils # (Manual) PT INR APTT Heparin Anti-Xa Level ABG pH POC ABG pO2 ABG pO2 ABG HCO3 ABG O2 Saturation ABG Base Excess POC ABG pCO2 ABG Hemoglobin ABG Oxyhemoglobin ABG Chloride ABG Glucose Oxyhemoglobin Sodium Potassium Chloride Carbon Dioxide BUN Creatinine 0.7 L Glucose 155 H POC Glucose 168 H Lactic Acid Calcium Phosphorus Magnesium AST ALT Lactate Dehydrogenase Total Bilirubin Direct Bilirubin CK-MB (CK-2) C-Reactive Protein NT-Pro-B Natriuret Pep Total Protein Albumin Arterial Blood Glucose Urine WBC (Auto) Urine Creatinine 01/18/20 01/18/20 01/18/20 12:05 17:14 23:28 WBC RBC Hgb Hct MCHC RDW MCV MCH Lymph % (Auto) [place] % (Auto) [place] # Eos # Lymph # (Auto) [place] # (Auto) Eos # (Auto) Seg Neutrophils % Seg Neuts % (Manual) Baso # (Auto) Lymphocytes % (Manual) Monocytes % (Manual) Eosinophils % (Manual) Basophils % (Manual) Seg Neutrophils # Seg Neutrophils # Man Lymphocytes # (Manual) Monocytes # (Manual) Eosinophils # (Manual) Nucleated RBC % Basophils # (Manual) PT INR APTT Heparin Anti-Xa Level ABG pH POC ABG pO2 ABG pO2 ABG HCO3 ABG O2 Saturation ABG Base Excess POC ABG pCO2 ABG Hemoglobin ABG Oxyhemoglobin ABG Chloride ABG Glucose Oxyhemoglobin Sodium Potassium Chloride Carbon Dioxide BUN Creatinine Glucose POC Glucose 128 H 126 H 128 H Lactic Acid Calcium Phosphorus Magnesium AST ALT Lactate Dehydrogenase Total Bilirubin Direct Bilirubin CK-MB (CK-2) C-Reactive Protein NT-Pro-B Natriuret Pep Total Protein Albumin Arterial Blood Glucose Urine WBC (Auto) Urine Creatinine 01/19/20 01/19/20 01/19/20 05:39 12:33 17:36 WBC RBC Hgb Hct MCHC RDW MCV MCH Lymph % (Auto) [place] % (Auto) [place] # Eos # Lymph # (Auto) [place] # (Auto) Eos # (Auto) Seg Neutrophils % Seg Neuts % (Manual) Baso # (Auto) Lymphocytes % (Manual) Monocytes % (Manual) Eosinophils % (Manual) Basophils % (Manual) Seg Neutrophils # Seg Neutrophils # Man Lymphocytes # (Manual) Monocytes # (Manual) Eosinophils # (Manual) Nucleated RBC % Basophils # (Manual) PT INR APTT Heparin Anti-Xa Level ABG pH POC ABG pO2 ABG pO2 ABG HCO3 ABG O2 Saturation ABG Base Excess POC ABG pCO2 ABG Hemoglobin ABG Oxyhemoglobin ABG Chloride ABG Glucose Oxyhemoglobin Sodium Potassium Chloride Carbon Dioxide BUN Creatinine Glucose POC Glucose 164 H 171 H 152 H Lactic Acid Calcium Phosphorus Magnesium AST ALT Lactate Dehydrogenase Total Bilirubin Direct Bilirubin CK-MB (CK-2) C-Reactive Protein NT-Pro-B Natriuret Pep Total Protein Albumin Arterial Blood Glucose Urine WBC (Auto) Urine Creatinine 01/20/20 01/20/20 01/20/20 00:12 05:20 05:35 WBC RBC Hgb 9.2 L Hct 29.4 L MCHC 31 L RDW 17.9 H MCV 81 L MCH 25 L Lymph % (Auto) [place] % (Auto) [place] # Eos # Lymph # (Auto) [place] # (Auto) Eos # (Auto) Seg Neutrophils % Seg Neuts % (Manual) Baso # (Auto) Lymphocytes % (Manual) Monocytes % (Manual) Eosinophils % (Manual) Basophils % (Manual) Seg Neutrophils # Seg Neutrophils # Man Lymphocytes # (Manual) Monocytes # (Manual) Eosinophils # (Manual) Nucleated RBC % Basophils # (Manual) PT INR APTT Heparin Anti-Xa Level ABG pH POC ABG pO2 ABG pO2 ABG HCO3 ABG O2 Saturation ABG Base Excess POC ABG pCO2 ABG Hemoglobin ABG Oxyhemoglobin ABG Chloride ABG Glucose Oxyhemoglobin Sodium Potassium Chloride Carbon Dioxide BUN Creatinine Glucose POC Glucose 120 H 136 H Lactic Acid Calcium Phosphorus Magnesium AST ALT Lactate Dehydrogenase Total Bilirubin Direct Bilirubin CK-MB (CK-2) C-Reactive Protein NT-Pro-B Natriuret Pep Total Protein Albumin Arterial Blood Glucose Urine WBC (Auto) Urine Creatinine 01/20/20 01/20/20 01/20/20 05:40 11:58 14:55 WBC RBC Hgb 9.0 L Hct 28.3 L MCHC RDW MCV MCH Lymph % (Auto) [place] % (Auto) [place] # Eos # Lymph # (Auto) [place] # (Auto) Eos # (Auto) Seg Neutrophils % Seg Neuts % (Manual) Baso # (Auto) Lymphocytes % (Manual) Monocytes % (Manual) Eosinophils % (Manual) Basophils % (Manual) Seg Neutrophils # Seg Neutrophils # Man Lymphocytes # (Manual) Monocytes # (Manual) Eosinophils # (Manual) Nucleated RBC % Basophils # (Manual) PT INR APTT Heparin Anti-Xa Level ABG pH POC ABG pO2 ABG pO2 ABG HCO3 ABG O2 Saturation ABG Base Excess POC ABG pCO2 ABG Hemoglobin ABG Oxyhemoglobin ABG Chloride ABG Glucose Oxyhemoglobin Sodium Potassium Chloride Carbon Dioxide 32 H BUN 22 H Creatinine 0.7 L Glucose 128 H POC Glucose 152 H Lactic Acid Calcium Phosphorus Magnesium AST ALT Lactate Dehydrogenase Total Bilirubin Direct Bilirubin CK-MB (CK-2) C-Reactive Protein NT-Pro-B Natriuret Pep Total Protein Albumin Arterial Blood Glucose Urine WBC (Auto) Urine Creatinine 01/20/20 01/20/20 01/20/20 14:55 18:14 21:35 WBC RBC Hgb Hct MCHC RDW MCV MCH Lymph % (Auto) [place] % (Auto) [place] # Eos # Lymph # (Auto) [place] # (Auto) Eos # (Auto) Seg Neutrophils % Seg Neuts % (Manual) Baso # (Auto) Lymphocytes % (Manual) Monocytes % (Manual) Eosinophils % (Manual) Basophils % (Manual) Seg Neutrophils # Seg Neutrophils # Man Lymphocytes # (Manual) Monocytes # (Manual) Eosinophils # (Manual) Nucleated RBC % Basophils # (Manual) PT 20.4 H INR 1.72 H APTT 40.6 H Heparin Anti-Xa Level > 2.00 H ABG pH POC ABG pO2 ABG pO2 ABG HCO3 ABG O2 Saturation ABG Base Excess POC ABG pCO2 ABG Hemoglobin ABG Oxyhemoglobin ABG Chloride ABG Glucose Oxyhemoglobin Sodium Potassium Chloride Carbon Dioxide BUN Creatinine Glucose POC Glucose 150 H Lactic Acid Calcium Phosphorus Magnesium AST ALT Lactate Dehydrogenase Total Bilirubin Direct Bilirubin CK-MB (CK-2) C-Reactive Protein NT-Pro-B Natriuret Pep Total Protein Albumin Arterial Blood Glucose Urine WBC (Auto) Urine Creatinine 01/21/20 01/21/20 01/21/20 00:30 05:47 05:59 WBC RBC Hgb Hct MCHC RDW MCV MCH Lymph % (Auto) [place] % (Auto) [place] # Eos # Lymph # (Auto) [place] # (Auto) Eos # (Auto) Seg Neutrophils % Seg Neuts % (Manual) Baso # (Auto) Lymphocytes % (Manual) Monocytes % (Manual) Eosinophils % (Manual) Basophils % (Manual) Seg Neutrophils # Seg Neutrophils # Man Lymphocytes # (Manual) Monocytes # (Manual) Eosinophils # (Manual) Nucleated RBC % Basophils # (Manual) PT INR APTT Heparin Anti-Xa Level 1.93 H ABG pH POC ABG pO2 ABG pO2 ABG HCO3 ABG O2 Saturation ABG Base Excess POC ABG pCO2 ABG Hemoglobin ABG Oxyhemoglobin ABG Chloride ABG Glucose Oxyhemoglobin Sodium Potassium Chloride Carbon Dioxide BUN Creatinine Glucose POC Glucose 126 H 148 H Lactic Acid Calcium Phosphorus Magnesium AST ALT Lactate Dehydrogenase Total Bilirubin Direct Bilirubin CK-MB (CK-2) C-Reactive Protein NT-Pro-B Natriuret Pep Total Protein Albumin Arterial Blood Glucose Urine WBC (Auto) Urine Creatinine 01/21/20 01/21/20 01/21/20 12:32 18:20 23:54 WBC RBC Hgb Hct MCHC RDW MCV MCH Lymph % (Auto) [place] % (Auto) [place] # Eos # Lymph # (Auto) [place] # (Auto) Eos # (Auto) Seg Neutrophils % Seg Neuts % (Manual) Baso # (Auto) Lymphocytes % (Manual) Monocytes % (Manual) Eosinophils % (Manual) Basophils % (Manual) Seg Neutrophils # Seg Neutrophils # Man Lymphocytes # (Manual) Monocytes # (Manual) Eosinophils # (Manual) Nucleated RBC % Basophils # (Manual) PT INR APTT Heparin Anti-Xa Level 1.28 H ABG pH POC ABG pO2 ABG pO2 ABG HCO3 ABG O2 Saturation ABG Base Excess POC ABG pCO2 ABG Hemoglobin ABG Oxyhemoglobin ABG Chloride ABG Glucose Oxyhemoglobin Sodium Potassium Chloride Carbon Dioxide BUN Creatinine Glucose POC Glucose 112 H 146 H Lactic Acid Calcium Phosphorus Magnesium AST ALT Lactate Dehydrogenase Total Bilirubin Direct Bilirubin CK-MB (CK-2) C-Reactive Protein NT-Pro-B Natriuret Pep Total Protein Albumin Arterial Blood Glucose Urine WBC (Auto) Urine Creatinine 01/22/20 01/22/20 01/22/20 04:45 04:45 05:48 WBC RBC Hgb 9.3 L Hct 29.0 L MCHC RDW MCV MCH Lymph % (Auto) [place] % (Auto) [place] # Eos # Lymph # (Auto) [place] # (Auto) Eos # (Auto) Seg Neutrophils % Seg Neuts % (Manual) Baso # (Auto) Lymphocytes % (Manual) Monocytes % (Manual) Eosinophils % (Manual) Basophils % (Manual) Seg Neutrophils # Seg Neutrophils # Man Lymphocytes # (Manual) Monocytes # (Manual) Eosinophils # (Manual) Nucleated RBC % Basophils # (Manual) PT INR APTT Heparin Anti-Xa Level 1.34 H ABG pH POC ABG pO2 ABG pO2 ABG HCO3 ABG O2 Saturation ABG Base Excess POC ABG pCO2 ABG Hemoglobin ABG Oxyhemoglobin ABG Chloride ABG Glucose Oxyhemoglobin Sodium Potassium Chloride Carbon Dioxide BUN Creatinine Glucose POC Glucose 142 H Lactic Acid Calcium Phosphorus Magnesium AST ALT Lactate Dehydrogenase Total Bilirubin Direct Bilirubin CK-MB (CK-2) C-Reactive Protein NT-Pro-B Natriuret Pep Total Protein Albumin Arterial Blood Glucose Urine WBC (Auto) Urine Creatinine 01/22/20 01/22/20 01/22/20 08:09 08:22 09:58 WBC RBC Hgb Hct MCHC RDW MCV MCH Lymph % (Auto) [place] % (Auto) [place] # Eos # Lymph # (Auto) [place] # (Auto) Eos # (Auto) Seg Neutrophils % Seg Neuts % (Manual) Baso # (Auto) Lymphocytes % (Manual) Monocytes % (Manual) Eosinophils % (Manual) Basophils % (Manual) Seg Neutrophils # Seg Neutrophils # Man Lymphocytes # (Manual) Monocytes # (Manual) Eosinophils # (Manual) Nucleated RBC % Basophils # (Manual) PT 16.9 H INR 1.34 H APTT Heparin Anti-Xa Level ABG pH POC ABG pO2 ABG pO2 ABG HCO3 ABG O2 Saturation ABG Base Excess POC ABG pCO2 ABG Hemoglobin ABG Oxyhemoglobin ABG Chloride ABG Glucose Oxyhemoglobin Sodium Potassium Chloride 97.8 L Carbon Dioxide BUN 29 H Creatinine Glucose 128 H POC Glucose 131 H Lactic Acid Calcium Phosphorus Magnesium AST ALT Lactate Dehydrogenase Total Bilirubin Direct Bilirubin CK-MB (CK-2) C-Reactive Protein NT-Pro-B Natriuret Pep Total Protein Albumin Arterial Blood Glucose Urine WBC (Auto) Urine Creatinine 01/22/20 01/22/20 01/22/20 12:44 16:13 18:18 WBC RBC Hgb Hct MCHC RDW MCV MCH Lymph % (Auto) [place] % (Auto) [place] # Eos # Lymph # (Auto) [place] # (Auto) Eos # (Auto) Seg Neutrophils % Seg Neuts % (Manual) Baso # (Auto) Lymphocytes % (Manual) Monocytes % (Manual) Eosinophils % (Manual) Basophils % (Manual) Seg Neutrophils # Seg Neutrophils # Man Lymphocytes # (Manual) Monocytes # (Manual) Eosinophils # (Manual) Nucleated RBC % Basophils # (Manual) PT INR APTT Heparin Anti-Xa Level ABG pH POC ABG pO2 ABG pO2 ABG HCO3 ABG O2 Saturation ABG Base Excess POC ABG pCO2 ABG Hemoglobin ABG Oxyhemoglobin ABG Chloride ABG Glucose Oxyhemoglobin Sodium Potassium Chloride Carbon Dioxide BUN Creatinine Glucose POC Glucose 156 H 133 H 155 H Lactic Acid Calcium Phosphorus Magnesium AST ALT Lactate Dehydrogenase Total Bilirubin Direct Bilirubin CK-MB (CK-2) C-Reactive Protein NT-Pro-B Natriuret Pep Total Protein Albumin Arterial Blood Glucose Urine WBC (Auto) Urine Creatinine 01/22/20 01/23/20 01/23/20 23:22 05:37 12:59 WBC RBC Hgb Hct MCHC RDW MCV MCH Lymph % (Auto) [place] % (Auto) [place] # Eos # Lymph # (Auto) [place] # (Auto) Eos # (Auto) Seg Neutrophils % Seg Neuts % (Manual) Baso # (Auto) Lymphocytes % (Manual) Monocytes % (Manual) Eosinophils % (Manual) Basophils % (Manual) Seg Neutrophils # Seg Neutrophils # Man Lymphocytes # (Manual) Monocytes # (Manual) Eosinophils # (Manual) Nucleated RBC % Basophils # (Manual) PT INR APTT Heparin Anti-Xa Level ABG pH POC ABG pO2 ABG pO2 ABG HCO3 ABG O2 Saturation ABG Base Excess POC ABG pCO2 ABG Hemoglobin ABG Oxyhemoglobin ABG Chloride ABG Glucose Oxyhemoglobin Sodium Potassium Chloride Carbon Dioxide BUN Creatinine Glucose POC Glucose 148 H 163 H 175 H Lactic Acid Calcium Phosphorus Magnesium AST ALT Lactate Dehydrogenase Total Bilirubin Direct Bilirubin CK-MB (CK-2) C-Reactive Protein NT-Pro-B Natriuret Pep Total Protein Albumin Arterial Blood Glucose Urine WBC (Auto) Urine Creatinine 01/23/20 01/23/20 01/24/20 17:28 23:56 04:30 WBC RBC 3.46 L Hgb 8.8 L Hct 27.8 L MCHC RDW 18.2 H MCV 81 L MCH 25 L Lymph % (Auto) [place] % (Auto) 7.8 H [place] # Eos # Lymph # (Auto) [place] # (Auto) Eos # (Auto) Seg Neutrophils % Seg Neuts % (Manual) Baso # (Auto) Lymphocytes % (Manual) Monocytes % (Manual) Eosinophils % (Manual) Basophils % (Manual) Seg Neutrophils # Seg Neutrophils # Man Lymphocytes # (Manual) Monocytes # (Manual) Eosinophils # (Manual) Nucleated RBC % Basophils # (Manual) PT INR APTT Heparin Anti-Xa Level ABG pH POC ABG pO2 ABG pO2 ABG HCO3 ABG O2 Saturation ABG Base Excess POC ABG pCO2 ABG Hemoglobin ABG Oxyhemoglobin ABG Chloride ABG Glucose Oxyhemoglobin Sodium Potassium Chloride Carbon Dioxide BUN Creatinine Glucose POC Glucose 165 H 177 H Lactic Acid Calcium Phosphorus Magnesium AST ALT Lactate Dehydrogenase Total Bilirubin Direct Bilirubin CK-MB (CK-2) C-Reactive Protein NT-Pro-B Natriuret Pep Total Protein Albumin Arterial Blood Glucose Urine WBC (Auto) Urine Creatinine 01/24/20 01/24/20 01/24/20 04:30 07:18 12:06 WBC RBC Hgb Hct MCHC RDW MCV MCH Lymph % (Auto) [place] % (Auto) [place] # Eos # Lymph # (Auto) [place] # (Auto) Eos # (Auto) Seg Neutrophils % Seg Neuts % (Manual) Baso # (Auto) Lymphocytes % (Manual) Monocytes % (Manual) Eosinophils % (Manual) Basophils % (Manual) Seg Neutrophils # Seg Neutrophils # Man Lymphocytes # (Manual) Monocytes # (Manual) Eosinophils # (Manual) Nucleated RBC % Basophils # (Manual) PT INR APTT Heparin Anti-Xa Level ABG pH POC ABG pO2 ABG pO2 ABG HCO3 ABG O2 Saturation ABG Base Excess POC ABG pCO2 ABG Hemoglobin ABG Oxyhemoglobin ABG Chloride ABG Glucose Oxyhemoglobin Sodium Potassium Chloride 97.9 L Carbon Dioxide BUN 31 H Creatinine Glucose 146 H POC Glucose 151 H 133 H Lactic Acid Calcium Phosphorus Magnesium AST ALT Lactate Dehydrogenase Total Bilirubin Direct Bilirubin CK-MB (CK-2) C-Reactive Protein NT-Pro-B Natriuret Pep Total Protein Albumin Arterial Blood Glucose Urine WBC (Auto) Urine Creatinine 01/24/20 01/25/20 01/25/20 17:36 00:08 04:25 WBC RBC 3.50 L Hgb 8.7 L Hct 27.9 L MCHC 31 L RDW 18.2 H MCV 80 L MCH 25 L Lymph % (Auto) [place] % (Auto) 8.5 H [place] # Eos # Lymph # (Auto) [place] # (Auto) Eos # (Auto) Seg Neutrophils % Seg Neuts % (Manual) Baso # (Auto) Lymphocytes % (Manual) Monocytes % (Manual) Eosinophils % (Manual) Basophils % (Manual) Seg Neutrophils # Seg Neutrophils # Man Lymphocytes # (Manual) Monocytes # (Manual) Eosinophils # (Manual) Nucleated RBC % Basophils # (Manual) PT INR APTT Heparin Anti-Xa Level ABG pH POC ABG pO2 ABG pO2 ABG HCO3 ABG O2 Saturation ABG Base Excess POC ABG pCO2 ABG Hemoglobin ABG Oxyhemoglobin ABG Chloride ABG Glucose Oxyhemoglobin Sodium Potassium Chloride Carbon Dioxide BUN Creatinine Glucose POC Glucose 133 H 129 H Lactic Acid Calcium Phosphorus Magnesium AST ALT Lactate Dehydrogenase Total Bilirubin Direct Bilirubin CK-MB (CK-2) C-Reactive Protein NT-Pro-B Natriuret Pep Total Protein Albumin Arterial Blood Glucose Urine WBC (Auto) Urine Creatinine 01/25/20 01/25/20 01/25/20 04:25 05:38 11:52 WBC RBC Hgb Hct MCHC RDW MCV MCH Lymph % (Auto) [place] % (Auto) [place] # Eos # Lymph # (Auto) [place] # (Auto) Eos # (Auto) Seg Neutrophils % Seg Neuts % (Manual) Baso # (Auto) Lymphocytes % (Manual) Monocytes % (Manual) Eosinophils % (Manual) Basophils % (Manual) Seg Neutrophils # Seg Neutrophils # Man Lymphocytes # (Manual) Monocytes # (Manual) Eosinophils # (Manual) Nucleated RBC % Basophils # (Manual) PT INR APTT Heparin Anti-Xa Level ABG pH POC ABG pO2 ABG pO2 ABG HCO3 ABG O2 Saturation ABG Base Excess POC ABG pCO2 ABG Hemoglobin ABG Oxyhemoglobin ABG Chloride ABG Glucose Oxyhemoglobin Sodium Potassium Chloride Carbon Dioxide BUN 30 H Creatinine Glucose 134 H POC Glucose 129 H 134 H Lactic Acid Calcium Phosphorus Magnesium AST ALT Lactate Dehydrogenase Total Bilirubin Direct Bilirubin CK-MB (CK-2) C-Reactive Protein NT-Pro-B Natriuret Pep Total Protein Albumin Arterial Blood Glucose Urine WBC (Auto) Urine Creatinine 01/25/20 01/25/20 01/26/20 17:13 21:02 00:59 WBC RBC Hgb Hct MCHC RDW MCV MCH Lymph % (Auto) [place] % (Auto) [place] # Eos # Lymph # (Auto) [place] # (Auto) Eos # (Auto) Seg Neutrophils % Seg Neuts % (Manual) Baso # (Auto) Lymphocytes % (Manual) Monocytes % (Manual) Eosinophils % (Manual) Basophils % (Manual) Seg Neutrophils # Seg Neutrophils # Man Lymphocytes # (Manual) Monocytes # (Manual) Eosinophils # (Manual) Nucleated RBC % Basophils # (Manual) PT INR APTT Heparin Anti-Xa Level ABG pH POC ABG pO2 ABG pO2 57.5 L ABG HCO3 31.7 H ABG O2 Saturation 90.3 L ABG Base Excess 6.6 H POC ABG pCO2 ABG Hemoglobin 13.0 L ABG Oxyhemoglobin ABG Chloride ABG Glucose Oxyhemoglobin 87.5 L Sodium Potassium Chloride Carbon Dioxide BUN Creatinine Glucose POC Glucose 124 H 196 H Lactic Acid Calcium Phosphorus Magnesium AST ALT Lactate Dehydrogenase Total Bilirubin Direct Bilirubin CK-MB (CK-2) C-Reactive Protein NT-Pro-B Natriuret Pep Total Protein Albumin Arterial Blood Glucose Urine WBC (Auto) Urine Creatinine 01/26/20 01/26/20 01/26/20 03:20 05:46 12:46 WBC RBC Hgb 9.2 L Hct 29.4 L MCHC RDW MCV MCH Lymph % (Auto) [place] % (Auto) [place] # Eos # Lymph # (Auto) [place] # (Auto) Eos # (Auto) Seg Neutrophils % Seg Neuts % (Manual) Baso # (Auto) Lymphocytes % (Manual) Monocytes % (Manual) Eosinophils % (Manual) Basophils % (Manual) Seg Neutrophils # Seg Neutrophils # Man Lymphocytes # (Manual) Monocytes # (Manual) Eosinophils # (Manual) Nucleated RBC % Basophils # (Manual) PT INR APTT Heparin Anti-Xa Level ABG pH POC ABG pO2 ABG pO2 ABG HCO3 ABG O2 Saturation ABG Base Excess POC ABG pCO2 ABG Hemoglobin ABG Oxyhemoglobin ABG Chloride ABG Glucose Oxyhemoglobin Sodium Potassium Chloride Carbon Dioxide BUN Creatinine Glucose POC Glucose 141 H 122 H Lactic Acid Calcium Phosphorus Magnesium AST ALT Lactate Dehydrogenase Total Bilirubin Direct Bilirubin CK-MB (CK-2) C-Reactive Protein NT-Pro-B Natriuret Pep Total Protein Albumin Arterial Blood Glucose Urine WBC (Auto) Urine Creatinine 01/26/20 01/26/20 01/27/20 18:03 23:55 04:47 WBC RBC Hgb Hct MCHC RDW MCV MCH Lymph % (Auto) [place] % (Auto) [place] # Eos # Lymph # (Auto) [place] # (Auto) Eos # (Auto) Seg Neutrophils % Seg Neuts % (Manual) Baso # (Auto) Lymphocytes % (Manual) Monocytes % (Manual) Eosinophils % (Manual) Basophils % (Manual) Seg Neutrophils # Seg Neutrophils # Man Lymphocytes # (Manual) Monocytes # (Manual) Eosinophils # (Manual) Nucleated RBC % Basophils # (Manual) PT INR APTT Heparin Anti-Xa Level ABG pH POC ABG pO2 ABG pO2 ABG HCO3 ABG O2 Saturation ABG Base Excess POC ABG pCO2 ABG Hemoglobin ABG Oxyhemoglobin ABG Chloride ABG Glucose Oxyhemoglobin Sodium Potassium Chloride Carbon Dioxide BUN 30 H Creatinine 0.7 L Glucose 135 H POC Glucose 142 H 159 H Lactic Acid Calcium Phosphorus Magnesium AST ALT Lactate Dehydrogenase Total Bilirubin Direct Bilirubin CK-MB (CK-2) C-Reactive Protein NT-Pro-B Natriuret Pep Total Protein Albumin Arterial Blood Glucose Urine WBC (Auto) Urine Creatinine 01/27/20 01/27/20 01/27/20 05:43 12:06 17:16 WBC RBC Hgb Hct MCHC RDW MCV MCH Lymph % (Auto) [place] % (Auto) [place] # Eos # Lymph # (Auto) [place] # (Auto) Eos # (Auto) Seg Neutrophils % Seg Neuts % (Manual) Baso # (Auto) Lymphocytes % (Manual) Monocytes % (Manual) Eosinophils % (Manual) Basophils % (Manual) Seg Neutrophils # Seg Neutrophils # Man Lymphocytes # (Manual) Monocytes # (Manual) Eosinophils # (Manual) Nucleated RBC % Basophils # (Manual) PT INR APTT Heparin Anti-Xa Level ABG pH POC ABG pO2 ABG pO2 ABG HCO3 ABG O2 Saturation ABG Base Excess POC ABG pCO2 ABG Hemoglobin ABG Oxyhemoglobin ABG Chloride ABG Glucose Oxyhemoglobin Sodium Potassium Chloride Carbon Dioxide BUN Creatinine Glucose POC Glucose 143 H 142 H 128 H Lactic Acid Calcium Phosphorus Magnesium AST ALT Lactate Dehydrogenase Total Bilirubin Direct Bilirubin CK-MB (CK-2) C-Reactive Protein NT-Pro-B Natriuret Pep Total Protein Albumin Arterial Blood Glucose Urine WBC (Auto) Urine Creatinine 01/27/20 01/28/20 01/28/20 23:55 04:37 05:55 WBC RBC Hgb 9.4 L Hct 29.9 L MCHC RDW MCV MCH Lymph % (Auto) [place] % (Auto) [place] # Eos # Lymph # (Auto) [place] # (Auto) Eos # (Auto) Seg Neutrophils % Seg Neuts % (Manual) Baso # (Auto) Lymphocytes % (Manual) Monocytes % (Manual) Eosinophils % (Manual) Basophils % (Manual) Seg Neutrophils # Seg Neutrophils # Man Lymphocytes # (Manual) Monocytes # (Manual) Eosinophils # (Manual) Nucleated RBC % Basophils # (Manual) PT INR APTT Heparin Anti-Xa Level ABG pH POC ABG pO2 ABG pO2 ABG HCO3 ABG O2 Saturation ABG Base Excess POC ABG pCO2 ABG Hemoglobin ABG Oxyhemoglobin ABG Chloride ABG Glucose Oxyhemoglobin Sodium Potassium Chloride Carbon Dioxide BUN Creatinine Glucose POC Glucose 166 H 169 H Lactic Acid Calcium Phosphorus Magnesium AST ALT Lactate Dehydrogenase Total Bilirubin Direct Bilirubin CK-MB (CK-2) C-Reactive Protein NT-Pro-B Natriuret Pep Total Protein Albumin Arterial Blood Glucose Urine WBC (Auto) Urine Creatinine 01/28/20 01/28/20 01/28/20 11:58 17:26 23:46 WBC RBC Hgb Hct MCHC RDW MCV MCH Lymph % (Auto) [place] % (Auto) [place] # Eos # Lymph # (Auto) [place] # (Auto) Eos # (Auto) Seg Neutrophils % Seg Neuts % (Manual) Baso # (Auto) Lymphocytes % (Manual) Monocytes % (Manual) Eosinophils % (Manual) Basophils % (Manual) Seg Neutrophils # Seg Neutrophils # Man Lymphocytes # (Manual) Monocytes # (Manual) Eosinophils # (Manual) Nucleated RBC % Basophils # (Manual) PT INR APTT Heparin Anti-Xa Level ABG pH POC ABG pO2 ABG pO2 ABG HCO3 ABG O2 Saturation ABG Base Excess POC ABG pCO2 ABG Hemoglobin ABG Oxyhemoglobin ABG Chloride ABG Glucose Oxyhemoglobin Sodium Potassium Chloride Carbon Dioxide BUN Creatinine Glucose POC Glucose 130 H 126 H 150 H Lactic Acid Calcium Phosphorus Magnesium AST ALT Lactate Dehydrogenase Total Bilirubin Direct Bilirubin CK-MB (CK-2) C-Reactive Protein NT-Pro-B Natriuret Pep Total Protein Albumin Arterial Blood Glucose Urine WBC (Auto) Urine Creatinine 01/29/20 01/29/20 01/29/20 04:55 06:00 12:28 WBC RBC Hgb Hct MCHC RDW MCV MCH Lymph % (Auto) [place] % (Auto) [place] # Eos # Lymph # (Auto) [place] # (Auto) Eos # (Auto) Seg Neutrophils % Seg Neuts % (Manual) Baso # (Auto) Lymphocytes % (Manual) Monocytes % (Manual) Eosinophils % (Manual) Basophils % (Manual) Seg Neutrophils # Seg Neutrophils # Man Lymphocytes # (Manual) Monocytes # (Manual) Eosinophils # (Manual) Nucleated RBC % Basophils # (Manual) PT INR APTT Heparin Anti-Xa Level ABG pH POC ABG pO2 ABG pO2 ABG HCO3 ABG O2 Saturation ABG Base Excess POC ABG pCO2 ABG Hemoglobin ABG Oxyhemoglobin ABG Chloride ABG Glucose Oxyhemoglobin Sodium Potassium Chloride Carbon Dioxide 34 H BUN Creatinine 0.6 L Glucose 152 H POC Glucose 157 H 156 H Lactic Acid Calcium Phosphorus Magnesium AST ALT Lactate Dehydrogenase Total Bilirubin Direct Bilirubin CK-MB (CK-2) C-Reactive Protein NT-Pro-B Natriuret Pep Total Protein Albumin Arterial Blood Glucose Urine WBC (Auto) Urine Creatinine 01/29/20 01/30/20 01/30/20 19:06 00:29 05:39 WBC RBC Hgb Hct MCHC RDW MCV MCH Lymph % (Auto) [place] % (Auto) [place] # Eos # Lymph # (Auto) [place] # (Auto) Eos # (Auto) Seg Neutrophils % Seg Neuts % (Manual) Baso # (Auto) Lymphocytes % (Manual) Monocytes % (Manual) Eosinophils % (Manual) Basophils % (Manual) Seg Neutrophils # Seg Neutrophils # Man Lymphocytes # (Manual) Monocytes # (Manual) Eosinophils # (Manual) Nucleated RBC % Basophils # (Manual) PT INR APTT Heparin Anti-Xa Level ABG pH POC ABG pO2 ABG pO2 ABG HCO3 ABG O2 Saturation ABG Base Excess POC ABG pCO2 ABG Hemoglobin ABG Oxyhemoglobin ABG Chloride ABG Glucose Oxyhemoglobin Sodium Potassium Chloride Carbon Dioxide BUN Creatinine Glucose POC Glucose 152 H 132 H 159 H Lactic Acid Calcium Phosphorus Magnesium AST ALT Lactate Dehydrogenase Total Bilirubin Direct Bilirubin CK-MB (CK-2) C-Reactive Protein NT-Pro-B Natriuret Pep Total Protein Albumin Arterial Blood Glucose Urine WBC (Auto) Urine Creatinine 01/30/20 01/30/20 01/30/20 12:27 17:42 23:28 WBC RBC Hgb Hct MCHC RDW MCV MCH Lymph % (Auto) [place] % (Auto) [place] # Eos # Lymph # (Auto) [place] # (Auto) Eos # (Auto) Seg Neutrophils % Seg Neuts % (Manual) Baso # (Auto) Lymphocytes % (Manual) Monocytes % (Manual) Eosinophils % (Manual) Basophils % (Manual) Seg Neutrophils # Seg Neutrophils # Man Lymphocytes # (Manual) Monocytes # (Manual) Eosinophils # (Manual) Nucleated RBC % Basophils # (Manual) PT INR APTT Heparin Anti-Xa Level ABG pH POC ABG pO2 ABG pO2 ABG HCO3 ABG O2 Saturation ABG Base Excess POC ABG pCO2 ABG Hemoglobin ABG Oxyhemoglobin ABG Chloride ABG Glucose Oxyhemoglobin Sodium Potassium Chloride Carbon Dioxide BUN Creatinine Glucose POC Glucose 151 H 144 H 164 H Lactic Acid Calcium Phosphorus Magnesium AST ALT Lactate Dehydrogenase Total Bilirubin Direct Bilirubin CK-MB (CK-2) C-Reactive Protein NT-Pro-B Natriuret Pep Total Protein Albumin Arterial Blood Glucose Urine WBC (Auto) Urine Creatinine 01/31/20 01/31/20 01/31/20 05:51 11:51 18:06 WBC RBC Hgb Hct MCHC RDW MCV MCH Lymph % (Auto) [place] % (Auto) [place] # Eos # Lymph # (Auto) [place] # (Auto) Eos # (Auto) Seg Neutrophils % Seg Neuts % (Manual) Baso # (Auto) Lymphocytes % (Manual) Monocytes % (Manual) Eosinophils % (Manual) Basophils % (Manual) Seg Neutrophils # Seg Neutrophils # Man Lymphocytes # (Manual) Monocytes # (Manual) Eosinophils # (Manual) Nucleated RBC % Basophils # (Manual) PT INR APTT Heparin Anti-Xa Level ABG pH POC ABG pO2 ABG pO2 ABG HCO3 ABG O2 Saturation ABG Base Excess POC ABG pCO2 ABG Hemoglobin ABG Oxyhemoglobin ABG Chloride ABG Glucose Oxyhemoglobin Sodium Potassium Chloride Carbon Dioxide BUN Creatinine Glucose POC Glucose 131 H 167 H 210 H Lactic Acid Calcium Phosphorus Magnesium AST ALT Lactate Dehydrogenase Total Bilirubin Direct Bilirubin CK-MB (CK-2) C-Reactive Protein NT-Pro-B Natriuret Pep Total Protein Albumin Arterial Blood Glucose Urine WBC (Auto) Urine Creatinine 01/31/20 01/31/20 02/01/20 19:24 Unknown 00:34 WBC RBC Hgb Hct MCHC RDW MCV MCH Lymph % (Auto) [place] % (Auto) [place] # Eos # Lymph # (Auto) [place] # (Auto) Eos # (Auto) Seg Neutrophils % Seg Neuts % (Manual) Baso # (Auto) Lymphocytes % (Manual) Monocytes % (Manual) Eosinophils % (Manual) Basophils % (Manual) Seg Neutrophils # Seg Neutrophils # Man Lymphocytes # (Manual) Monocytes # (Manual) Eosinophils # (Manual) Nucleated RBC % Basophils # (Manual) PT INR APTT Heparin Anti-Xa Level ABG pH POC ABG pO2 ABG pO2 ABG HCO3 ABG O2 Saturation ABG Base Excess POC ABG pCO2 ABG Hemoglobin ABG Oxyhemoglobin ABG Chloride ABG Glucose Oxyhemoglobin Sodium Potassium Chloride 95.3 L Carbon Dioxide 33 H BUN 36 H Creatinine Glucose 187 H POC Glucose 116 H Lactic Acid Calcium Phosphorus Magnesium AST ALT Lactate Dehydrogenase Total Bilirubin Direct Bilirubin CK-MB (CK-2) C-Reactive Protein NT-Pro-B Natriuret Pep Total Protein Albumin Arterial Blood Glucose Urine WBC (Auto) Urine Creatinine 57.4 H 02/01/20 02/01/20 02/01/20 05:24 10:40 12:29 WBC RBC Hgb Hct MCHC RDW MCV MCH Lymph % (Auto) [place] % (Auto) [place] # Eos # Lymph # (Auto) [place] # (Auto) Eos # (Auto) Seg Neutrophils % Seg Neuts % (Manual) Baso # (Auto) Lymphocytes % (Manual) Monocytes % (Manual) Eosinophils % (Manual) Basophils % (Manual) Seg Neutrophils # Seg Neutrophils # Man Lymphocytes # (Manual) Monocytes # (Manual) Eosinophils # (Manual) Nucleated RBC % Basophils # (Manual) PT INR APTT Heparin Anti-Xa Level ABG pH POC ABG pO2 ABG pO2 ABG HCO3 ABG O2 Saturation ABG Base Excess POC ABG pCO2 ABG Hemoglobin ABG Oxyhemoglobin ABG Chloride ABG Glucose Oxyhemoglobin Sodium Potassium Chloride Carbon Dioxide BUN Creatinine Glucose POC Glucose 142 H 165 H 151 H Lactic Acid Calcium Phosphorus Magnesium AST ALT Lactate Dehydrogenase Total Bilirubin Direct Bilirubin CK-MB (CK-2) C-Reactive Protein NT-Pro-B Natriuret Pep Total Protein Albumin Arterial Blood Glucose Urine WBC (Auto) Urine Creatinine 02/01/20 02/01/20 02/02/20 17:16 23:23 06:36 WBC RBC Hgb Hct MCHC RDW MCV MCH Lymph % (Auto) [place] % (Auto) [place] # Eos # Lymph # (Auto) [place] # (Auto) Eos # (Auto) Seg Neutrophils % Seg Neuts % (Manual) Baso # (Auto) Lymphocytes % (Manual) Monocytes % (Manual) Eosinophils % (Manual) Basophils % (Manual) Seg Neutrophils # Seg Neutrophils # Man Lymphocytes # (Manual) Monocytes # (Manual) Eosinophils # (Manual) Nucleated RBC % Basophils # (Manual) PT INR APTT Heparin Anti-Xa Level ABG pH POC ABG pO2 ABG pO2 ABG HCO3 ABG O2 Saturation ABG Base Excess POC ABG pCO2 ABG Hemoglobin ABG Oxyhemoglobin ABG Chloride ABG Glucose Oxyhemoglobin Sodium Potassium Chloride Carbon Dioxide BUN Creatinine Glucose POC Glucose 137 H 145 H 181 H Lactic Acid Calcium Phosphorus Magnesium AST ALT Lactate Dehydrogenase Total Bilirubin Direct Bilirubin CK-MB (CK-2) C-Reactive Protein NT-Pro-B Natriuret Pep Total Protein Albumin Arterial Blood Glucose Urine WBC (Auto) Urine Creatinine 02/02/20 02/02/20 02/02/20 10:01 12:05 17:54 WBC RBC Hgb Hct MCHC RDW MCV MCH Lymph % (Auto) [place] % (Auto) [place] # Eos # Lymph # (Auto) [place] # (Auto) Eos # (Auto) Seg Neutrophils % Seg Neuts % (Manual) Baso # (Auto) Lymphocytes % (Manual) Monocytes % (Manual) Eosinophils % (Manual) Basophils % (Manual) Seg Neutrophils # Seg Neutrophils # Man Lymphocytes # (Manual) Monocytes # (Manual) Eosinophils # (Manual) Nucleated RBC % Basophils # (Manual) PT INR APTT Heparin Anti-Xa Level ABG pH POC ABG pO2 ABG pO2 ABG HCO3 ABG O2 Saturation ABG Base Excess POC ABG pCO2 ABG Hemoglobin ABG Oxyhemoglobin ABG Chloride ABG Glucose Oxyhemoglobin Sodium Potassium Chloride 95.3 L Carbon Dioxide BUN 44 H Creatinine Glucose 234 H POC Glucose 184 H 127 H Lactic Acid Calcium Phosphorus Magnesium AST 363 H ALT 457 H Lactate Dehydrogenase Total Bilirubin Direct Bilirubin CK-MB (CK-2) C-Reactive Protein NT-Pro-B Natriuret Pep Total Protein Albumin 3.0 L Arterial Blood Glucose Urine WBC (Auto) Urine Creatinine 02/02/20 02/03/20 02/03/20 23:47 05:32 07:04 WBC 13.0 H RBC Hgb 9.5 L Hct 30.8 L MCHC 31 L RDW 19.6 H MCV 81 L MCH 25 L Lymph % (Auto) [place] % (Auto) 9.4 H [place] # Eos # Lymph # (Auto) [place] # (Auto) 1.2 H Eos # (Auto) Seg Neutrophils % 72.3 H Seg Neuts % (Manual) Baso # (Auto) Lymphocytes % (Manual) Monocytes % (Manual) Eosinophils % (Manual) Basophils % (Manual) Seg Neutrophils # 9.4 H Seg Neutrophils # Man Lymphocytes # (Manual) Monocytes # (Manual) Eosinophils # (Manual) Nucleated RBC % Basophils # (Manual) PT INR APTT Heparin Anti-Xa Level ABG pH POC ABG pO2 ABG pO2 ABG HCO3 ABG O2 Saturation ABG Base Excess POC ABG pCO2 ABG Hemoglobin ABG Oxyhemoglobin ABG Chloride ABG Glucose Oxyhemoglobin Sodium Potassium Chloride Carbon Dioxide BUN Creatinine Glucose POC Glucose 124 H 129 H Lactic Acid Calcium Phosphorus Magnesium AST ALT Lactate Dehydrogenase Total Bilirubin Direct Bilirubin CK-MB (CK-2) C-Reactive Protein NT-Pro-B Natriuret Pep Total Protein Albumin Arterial Blood Glucose Urine WBC (Auto) Urine Creatinine 02/03/20 02/03/20 02/03/20 07:04 11:32 12:49 WBC RBC Hgb Hct MCHC RDW MCV MCH Lymph % (Auto) [place] % (Auto) [place] # Eos # Lymph # (Auto) [place] # (Auto) Eos # (Auto) Seg Neutrophils % Seg Neuts % (Manual) Baso # (Auto) Lymphocytes % (Manual) Monocytes % (Manual) Eosinophils % (Manual) Basophils % (Manual) Seg Neutrophils # Seg Neutrophils # Man Lymphocytes # (Manual) Monocytes # (Manual) Eosinophils # (Manual) Nucleated RBC % Basophils # (Manual) PT INR APTT Heparin Anti-Xa Level ABG pH POC ABG pO2 ABG pO2 ABG HCO3 ABG O2 Saturation ABG Base Excess POC ABG pCO2 ABG Hemoglobin ABG Oxyhemoglobin ABG Chloride ABG Glucose Oxyhemoglobin Sodium Potassium Chloride 97.9 L Carbon Dioxide 33 H BUN 39 H Creatinine Glucose 119 H POC Glucose 138 H Lactic Acid Calcium Phosphorus Magnesium 2.60 H AST ALT Lactate Dehydrogenase Total Bilirubin Direct Bilirubin CK-MB (CK-2) C-Reactive Protein NT-Pro-B Natriuret Pep Total Protein Albumin Arterial Blood Glucose Urine WBC (Auto) Urine Creatinine 02/03/20 02/04/20 02/04/20 18:28 16:24 16:24 WBC RBC 3.38 L Hgb 8.6 L Hct 26.9 L MCHC RDW 19.5 H MCV 80 L MCH 26 L Lymph % (Auto) [place] % (Auto) [place] # Eos # Lymph # (Auto) [place] # (Auto) Eos # (Auto) Seg Neutrophils % Seg Neuts % (Manual) Baso # (Auto) Lymphocytes % (Manual) Monocytes % (Manual) Eosinophils % (Manual) Basophils % (Manual) Seg Neutrophils # Seg Neutrophils # Man Lymphocytes # (Manual) Monocytes # (Manual) Eosinophils # (Manual) Nucleated RBC % Basophils # (Manual) PT INR APTT Heparin Anti-Xa Level ABG pH POC ABG pO2 ABG pO2 ABG HCO3 ABG O2 Saturation ABG Base Excess POC ABG pCO2 ABG Hemoglobin ABG Oxyhemoglobin ABG Chloride ABG Glucose Oxyhemoglobin Sodium Potassium 3.4 L Chloride Carbon Dioxide 31 H BUN 37 H Creatinine Glucose 70 L POC Glucose 118 H Lactic Acid Calcium Phosphorus Magnesium AST 169 H ALT 394 H Lactate Dehydrogenase Total Bilirubin 1.50 H Direct Bilirubin CK-MB (CK-2) C-Reactive Protein NT-Pro-B Natriuret Pep Total Protein Albumin 2.9 L Arterial Blood Glucose Urine WBC (Auto) Urine Creatinine 02/05/20 02/05/20 02/05/20 00:41 06:37 17:14 WBC RBC Hgb Hct MCHC RDW MCV MCH Lymph % (Auto) [place] % (Auto) [place] # Eos # Lymph # (Auto) [place] # (Auto) Eos # (Auto) Seg Neutrophils % Seg Neuts % (Manual) Baso # (Auto) Lymphocytes % (Manual) Monocytes % (Manual) Eosinophils % (Manual) Basophils % (Manual) Seg Neutrophils # Seg Neutrophils # Man Lymphocytes # (Manual) Monocytes # (Manual) Eosinophils # (Manual) Nucleated RBC % Basophils # (Manual) PT INR APTT Heparin Anti-Xa Level ABG pH POC ABG pO2 ABG pO2 ABG HCO3 ABG O2 Saturation ABG Base Excess POC ABG pCO2 ABG Hemoglobin ABG Oxyhemoglobin ABG Chloride ABG Glucose Oxyhemoglobin Sodium Potassium 3.1 L Chloride Carbon Dioxide 35 H BUN 32 H Creatinine 0.7 L Glucose POC Glucose 69 L 127 H Lactic Acid Calcium Phosphorus Magnesium AST 134 H ALT 352 H Lactate Dehydrogenase Total Bilirubin 1.60 H Direct Bilirubin CK-MB (CK-2) C-Reactive Protein NT-Pro-B Natriuret Pep Total Protein Albumin 2.9 L Arterial Blood Glucose Urine WBC (Auto) Urine Creatinine 02/05/20 02/06/20 02/06/20 23:43 05:32 08:01 WBC RBC Hgb Hct MCHC RDW MCV MCH Lymph % (Auto) [place] % (Auto) [place] # Eos # Lymph # (Auto) [place] # (Auto) Eos # (Auto) Seg Neutrophils % Seg Neuts % (Manual) Baso # (Auto) Lymphocytes % (Manual) Monocytes % (Manual) Eosinophils % (Manual) Basophils % (Manual) Seg Neutrophils # Seg Neutrophils # Man Lymphocytes # (Manual) Monocytes # (Manual) Eosinophils # (Manual) Nucleated RBC % Basophils # (Manual) PT INR APTT Heparin Anti-Xa Level ABG pH POC ABG pO2 ABG pO2 ABG HCO3 ABG O2 Saturation ABG Base Excess POC ABG pCO2 ABG Hemoglobin ABG Oxyhemoglobin ABG Chloride ABG Glucose Oxyhemoglobin Sodium Potassium Chloride Carbon Dioxide BUN 40 H Creatinine Glucose 132 H POC Glucose 129 H 131 H Lactic Acid Calcium Phosphorus Magnesium AST ALT Lactate Dehydrogenase Total Bilirubin Direct Bilirubin CK-MB (CK-2) C-Reactive Protein NT-Pro-B Natriuret Pep Total Protein Albumin Arterial Blood Glucose Urine WBC (Auto) Urine Creatinine 02/06/20 02/06/20 02/06/20 11:51 16:28 17:32 WBC RBC Hgb Hct MCHC RDW MCV MCH Lymph % (Auto) [place] % (Auto) [place] # Eos # Lymph # (Auto) [place] # (Auto) Eos # (Auto) Seg Neutrophils % Seg Neuts % (Manual) Baso # (Auto) Lymphocytes % (Manual) Monocytes % (Manual) Eosinophils % (Manual) Basophils % (Manual) Seg Neutrophils # Seg Neutrophils # Man Lymphocytes # (Manual) Monocytes # (Manual) Eosinophils # (Manual) Nucleated RBC % Basophils # (Manual) PT INR APTT Heparin Anti-Xa Level ABG pH POC ABG pO2 ABG pO2 ABG HCO3 ABG O2 Saturation ABG Base Excess POC ABG pCO2 ABG Hemoglobin ABG Oxyhemoglobin ABG Chloride ABG Glucose Oxyhemoglobin Sodium Potassium Chloride Carbon Dioxide BUN Creatinine Glucose POC Glucose 167 H 129 H Lactic Acid Calcium Phosphorus Magnesium AST 824 H ALT 948 H Lactate Dehydrogenase Total Bilirubin 1.70 H Direct Bilirubin 1.2 H CK-MB (CK-2) C-Reactive Protein NT-Pro-B Natriuret Pep Total Protein Albumin 2.9 L Arterial Blood Glucose Urine WBC (Auto) Urine Creatinine 02/07/20 02/07/20 02/07/20 00:11 04:57 04:57 WBC RBC Hgb 9.2 L Hct 29.7 L MCHC 31 L RDW 20.2 H MCV 80 L MCH 25 L Lymph % (Auto) [place] % (Auto) [place] # Eos # Lymph # (Auto) [place] # (Auto) Eos # (Auto) Seg Neutrophils % Seg Neuts % (Manual) Baso # (Auto) Lymphocytes % (Manual) Monocytes % (Manual) Eosinophils % (Manual) Basophils % (Manual) Seg Neutrophils # Seg Neutrophils # Man Lymphocytes # (Manual) Monocytes # (Manual) Eosinophils # (Manual) Nucleated RBC % Basophils # (Manual) PT INR APTT Heparin Anti-Xa Level ABG pH POC ABG pO2 ABG pO2 ABG HCO3 ABG O2 Saturation ABG Base Excess POC ABG pCO2 ABG Hemoglobin ABG Oxyhemoglobin ABG Chloride ABG Glucose Oxyhemoglobin Sodium Potassium 3.4 L D Chloride Carbon Dioxide 32 H BUN 39 H Creatinine Glucose 106 H POC Glucose 121 H Lactic Acid Calcium Phosphorus Magnesium AST ALT Lactate Dehydrogenase Total Bilirubin Direct Bilirubin CK-MB (CK-2) C-Reactive Protein NT-Pro-B Natriuret Pep Total Protein Albumin Arterial Blood Glucose Urine WBC (Auto) Urine Creatinine 02/07/20 02/07/20 02/07/20 15:03 15:03 17:11 WBC RBC Hgb Hct MCHC RDW MCV MCH Lymph % (Auto) [place] % (Auto) [place] # Eos # Lymph # (Auto) [place] # (Auto) Eos # (Auto) Seg Neutrophils % Seg Neuts % (Manual) Baso # (Auto) Lymphocytes % (Manual) Monocytes % (Manual) Eosinophils % (Manual) Basophils % (Manual) Seg Neutrophils # Seg Neutrophils # Man Lymphocytes # (Manual) Monocytes # (Manual) Eosinophils # (Manual) Nucleated RBC % Basophils # (Manual) PT 27.0 H INR 2.46 H APTT Heparin Anti-Xa Level ABG pH POC ABG pO2 ABG pO2 ABG HCO3 ABG O2 Saturation ABG Base Excess POC ABG pCO2 ABG Hemoglobin ABG Oxyhemoglobin ABG Chloride ABG Glucose Oxyhemoglobin Sodium Potassium Chloride Carbon Dioxide BUN Creatinine Glucose POC Glucose 109 H Lactic Acid Calcium Phosphorus Magnesium AST 424 H ALT 796 H Lactate Dehydrogenase Total Bilirubin 1.60 H Direct Bilirubin 1.2 H CK-MB (CK-2) C-Reactive Protein NT-Pro-B Natriuret Pep Total Protein Albumin 2.9 L Arterial Blood Glucose Urine WBC (Auto) Urine Creatinine 02/08/20 02/08/20 02/08/20 12:14 17:44 19:00 WBC RBC Hgb Hct MCHC RDW MCV MCH Lymph % (Auto) [place] % (Auto) [place] # Eos # Lymph # (Auto) [place] # (Auto) Eos # (Auto) Seg Neutrophils % Seg Neuts % (Manual) Baso # (Auto) Lymphocytes % (Manual) Monocytes % (Manual) Eosinophils % (Manual) Basophils % (Manual) Seg Neutrophils # Seg Neutrophils # Man Lymphocytes # (Manual) Monocytes # (Manual) Eosinophils # (Manual) Nucleated RBC % Basophils # (Manual) PT INR APTT Heparin Anti-Xa Level ABG pH POC ABG pO2 ABG pO2 ABG HCO3 ABG O2 Saturation ABG Base Excess POC ABG pCO2 ABG Hemoglobin ABG Oxyhemoglobin ABG Chloride ABG Glucose Oxyhemoglobin Sodium Potassium Chloride Carbon Dioxide BUN Creatinine Glucose POC Glucose 111 H 107 H Lactic Acid Calcium Phosphorus Magnesium AST 309 H ALT 650 H Lactate Dehydrogenase Total Bilirubin 1.30 H Direct Bilirubin 0.9 H CK-MB (CK-2) C-Reactive Protein NT-Pro-B Natriuret Pep Total Protein 6.2 L Albumin 2.7 L Arterial Blood Glucose Urine WBC (Auto) Urine Creatinine 02/09/20 02/09/20 02/09/20 05:41 12:28 18:07 WBC RBC Hgb Hct MCHC RDW MCV MCH Lymph % (Auto) [place] % (Auto) [place] # Eos # Lymph # (Auto) [place] # (Auto) Eos # (Auto) Seg Neutrophils % Seg Neuts % (Manual) Baso # (Auto) Lymphocytes % (Manual) Monocytes % (Manual) Eosinophils % (Manual) Basophils % (Manual) Seg Neutrophils # Seg Neutrophils # Man Lymphocytes # (Manual) Monocytes # (Manual) Eosinophils # (Manual) Nucleated RBC % Basophils # (Manual) PT INR APTT Heparin Anti-Xa Level ABG pH POC ABG pO2 ABG pO2 ABG HCO3 ABG O2 Saturation ABG Base Excess POC ABG pCO2 ABG Hemoglobin ABG Oxyhemoglobin ABG Chloride ABG Glucose Oxyhemoglobin Sodium Potassium Chloride Carbon Dioxide BUN Creatinine Glucose POC Glucose 113 H 140 H 143 H Lactic Acid Calcium Phosphorus Magnesium AST ALT Lactate Dehydrogenase Total Bilirubin Direct Bilirubin CK-MB (CK-2) C-Reactive Protein NT-Pro-B Natriuret Pep Total Protein Albumin Arterial Blood Glucose Urine WBC (Auto) Urine Creatinine 02/09/20 02/09/20 02/10/20 21:40 23:45 06:00 WBC RBC Hgb Hct MCHC RDW MCV MCH Lymph % (Auto) [place] % (Auto) [place] # Eos # Lymph # (Auto) [place] # (Auto) Eos # (Auto) Seg Neutrophils % Seg Neuts % (Manual) Baso # (Auto) Lymphocytes % (Manual) Monocytes % (Manual) Eosinophils % (Manual) Basophils % (Manual) Seg Neutrophils # Seg Neutrophils # Man Lymphocytes # (Manual) Monocytes # (Manual) Eosinophils # (Manual) Nucleated RBC % Basophils # (Manual) PT INR APTT Heparin Anti-Xa Level ABG pH POC ABG pO2 ABG pO2 59.8 L ABG HCO3 33.3 H ABG O2 Saturation 88.9 L ABG Base Excess 7.4 H POC ABG pCO2 ABG Hemoglobin 10.4 L ABG Oxyhemoglobin ABG Chloride ABG Glucose Oxyhemoglobin 86.3 L Sodium Potassium Chloride Carbon Dioxide BUN Creatinine Glucose POC Glucose 127 H 114 H Lactic Acid Calcium Phosphorus Magnesium AST ALT Lactate Dehydrogenase Total Bilirubin Direct Bilirubin CK-MB (CK-2) C-Reactive Protein NT-Pro-B Natriuret Pep Total Protein Albumin Arterial Blood Glucose Urine WBC (Auto) Urine Creatinine 02/10/20 02/10/20 02/10/20 07:40 07:40 13:38 WBC 11.5 H RBC Hgb 10.6 L Hct 34.7 L MCHC 31 L RDW 19.8 H MCV 79 L MCH 24 L Lymph % (Auto) [place] % (Auto) 9.2 H [place] # Eos # Lymph # (Auto) [place] # (Auto) 1.1 H Eos # (Auto) Seg Neutrophils % Seg Neuts % (Manual) Baso # (Auto) Lymphocytes % (Manual) Monocytes % (Manual) Eosinophils % (Manual) Basophils % (Manual) Seg Neutrophils # Seg Neutrophils # Man Lymphocytes # (Manual) Monocytes # (Manual) Eosinophils # (Manual) Nucleated RBC % Basophils # (Manual) PT INR APTT Heparin Anti-Xa Level ABG pH POC ABG pO2 ABG pO2 ABG HCO3 ABG O2 Saturation ABG Base Excess POC ABG pCO2 ABG Hemoglobin ABG Oxyhemoglobin ABG Chloride ABG Glucose Oxyhemoglobin Sodium 151 H Potassium Chloride 107.2 H Carbon Dioxide 36 H BUN 25 H Creatinine 0.7 L Glucose 114 H POC Glucose 116 H Lactic Acid Calcium Phosphorus Magnesium 2.40 H AST ALT Lactate Dehydrogenase Total Bilirubin Direct Bilirubin CK-MB (CK-2) C-Reactive Protein NT-Pro-B Natriuret Pep Total Protein Albumin Arterial Blood Glucose Urine WBC (Auto) Urine Creatinine 02/10/20 02/11/20 02/11/20 17:44 05:47 12:21 WBC RBC Hgb Hct MCHC RDW MCV MCH Lymph % (Auto) [place] % (Auto) [place] # Eos # Lymph # (Auto) [place] # (Auto) Eos # (Auto) Seg Neutrophils % Seg Neuts % (Manual) Baso # (Auto) Lymphocytes % (Manual) Monocytes % (Manual) Eosinophils % (Manual) Basophils % (Manual) Seg Neutrophils # Seg Neutrophils # Man Lymphocytes # (Manual) Monocytes # (Manual) Eosinophils # (Manual) Nucleated RBC % Basophils # (Manual) PT INR APTT Heparin Anti-Xa Level ABG pH POC ABG pO2 ABG pO2 ABG HCO3 ABG O2 Saturation ABG Base Excess POC ABG pCO2 ABG Hemoglobin ABG Oxyhemoglobin ABG Chloride ABG Glucose Oxyhemoglobin Sodium Potassium Chloride Carbon Dioxide BUN Creatinine Glucose POC Glucose 139 H 173 H 143 H Lactic Acid Calcium Phosphorus Magnesium AST ALT Lactate Dehydrogenase Total Bilirubin Direct Bilirubin CK-MB (CK-2) C-Reactive Protein NT-Pro-B Natriuret Pep Total Protein Albumin Arterial Blood Glucose Urine WBC (Auto) Urine Creatinine 02/11/20 02/11/20 02/12/20 13:43 14:11 00:15 WBC RBC Hgb Hct MCHC RDW MCV MCH Lymph % (Auto) [place] % (Auto) [place] # Eos # Lymph # (Auto) [place] # (Auto) Eos # (Auto) Seg Neutrophils % Seg Neuts % (Manual) Baso # (Auto) Lymphocytes % (Manual) Monocytes % (Manual) Eosinophils % (Manual) Basophils % (Manual) Seg Neutrophils # Seg Neutrophils # Man Lymphocytes # (Manual) Monocytes # (Manual) Eosinophils # (Manual) Nucleated RBC % Basophils # (Manual) PT INR APTT Heparin Anti-Xa Level ABG pH 7.502 H POC ABG pO2 77.7 L ABG pO2 ABG HCO3 ABG O2 Saturation ABG Base Excess POC ABG pCO2 ABG Hemoglobin 11.1 L ABG Oxyhemoglobin ABG Chloride 108.0 H ABG Glucose 151 H Oxyhemoglobin Sodium Potassium Chloride Carbon Dioxide BUN Creatinine Glucose POC Glucose 130 H 125 H Lactic Acid Calcium Phosphorus Magnesium AST ALT Lactate Dehydrogenase Total Bilirubin Direct Bilirubin CK-MB (CK-2) C-Reactive Protein NT-Pro-B Natriuret Pep Total Protein Albumin Arterial Blood Glucose 151 H Urine WBC (Auto) Urine Creatinine 02/12/20 02/12/20 02/12/20 04:56 04:56 17:42 WBC RBC Hgb 9.9 L Hct 31.8 L MCHC 31 L RDW 19.4 H MCV 79 L MCH 25 L Lymph % (Auto) [place] % (Auto) 10.3 H [place] # Eos # Lymph # (Auto) [place] # (Auto) 1.0 H Eos # (Auto) Seg Neutrophils % Seg Neuts % (Manual) Baso # (Auto) Lymphocytes % (Manual) Monocytes % (Manual) Eosinophils % (Manual) Basophils % (Manual) Seg Neutrophils # Seg Neutrophils # Man Lymphocytes # (Manual) Monocytes # (Manual) Eosinophils # (Manual) Nucleated RBC % Basophils # (Manual) PT INR APTT Heparin Anti-Xa Level ABG pH POC ABG pO2 ABG pO2 ABG HCO3 ABG O2 Saturation ABG Base Excess POC ABG pCO2 ABG Hemoglobin ABG Oxyhemoglobin ABG Chloride ABG Glucose Oxyhemoglobin Sodium 149 H Potassium Chloride 108.6 H Carbon Dioxide BUN 28 H Creatinine 0.7 L Glucose 108 H POC Glucose 113 H Lactic Acid Calcium Phosphorus Magnesium AST ALT Lactate Dehydrogenase Total Bilirubin Direct Bilirubin CK-MB (CK-2) C-Reactive Protein NT-Pro-B Natriuret Pep Total Protein Albumin Arterial Blood Glucose Urine WBC (Auto) Urine Creatinine 02/13/20 02/13/20 02/13/20 00:39 05:36 12:25 WBC RBC Hgb Hct MCHC RDW MCV MCH Lymph % (Auto) [place] % (Auto) [place] # Eos # Lymph # (Auto) [place] # (Auto) Eos # (Auto) Seg Neutrophils % Seg Neuts % (Manual) Baso # (Auto) Lymphocytes % (Manual) Monocytes % (Manual) Eosinophils % (Manual) Basophils % (Manual) Seg Neutrophils # Seg Neutrophils # Man Lymphocytes # (Manual) Monocytes # (Manual) Eosinophils # (Manual) Nucleated RBC % Basophils # (Manual) PT INR APTT Heparin Anti-Xa Level ABG pH POC ABG pO2 ABG pO2 ABG HCO3 ABG O2 Saturation ABG Base Excess POC ABG pCO2 ABG Hemoglobin ABG Oxyhemoglobin ABG Chloride ABG Glucose Oxyhemoglobin Sodium Potassium Chloride Carbon Dioxide BUN Creatinine Glucose POC Glucose 129 H 126 H 129 H Lactic Acid Calcium Phosphorus Magnesium AST ALT Lactate Dehydrogenase Total Bilirubin Direct Bilirubin CK-MB (CK-2) C-Reactive Protein NT-Pro-B Natriuret Pep Total Protein Albumin Arterial Blood Glucose Urine WBC (Auto) Urine Creatinine 02/13/20 02/14/20 02/14/20 17:59 00:15 05:41 WBC RBC Hgb Hct MCHC RDW MCV MCH Lymph % (Auto) [place] % (Auto) [place] # Eos # Lymph # (Auto) [place] # (Auto) Eos # (Auto) Seg Neutrophils % Seg Neuts % (Manual) Baso # (Auto) Lymphocytes % (Manual) Monocytes % (Manual) Eosinophils % (Manual) Basophils % (Manual) Seg Neutrophils # Seg Neutrophils # Man Lymphocytes # (Manual) Monocytes # (Manual) Eosinophils # (Manual) Nucleated RBC % Basophils # (Manual) PT INR APTT Heparin Anti-Xa Level ABG pH POC ABG pO2 ABG pO2 ABG HCO3 ABG O2 Saturation ABG Base Excess POC ABG pCO2 ABG Hemoglobin ABG Oxyhemoglobin ABG Chloride ABG Glucose Oxyhemoglobin Sodium Potassium Chloride Carbon Dioxide BUN Creatinine Glucose POC Glucose 153 H 130 H 130 H Lactic Acid Calcium Phosphorus Magnesium AST ALT Lactate Dehydrogenase Total Bilirubin Direct Bilirubin CK-MB (CK-2) C-Reactive Protein NT-Pro-B Natriuret Pep Total Protein Albumin Arterial Blood Glucose Urine WBC (Auto) Urine Creatinine 02/14/20 02/15/20 02/15/20 11:32 00:12 05:27 WBC RBC Hgb Hct MCHC RDW MCV MCH Lymph % (Auto) [place] % (Auto) [place] # Eos # Lymph # (Auto) [place] # (Auto) Eos # (Auto) Seg Neutrophils % Seg Neuts % (Manual) Baso # (Auto) Lymphocytes % (Manual) Monocytes % (Manual) Eosinophils % (Manual) Basophils % (Manual) Seg Neutrophils # Seg Neutrophils # Man Lymphocytes # (Manual) Monocytes # (Manual) Eosinophils # (Manual) Nucleated RBC % Basophils # (Manual) PT INR APTT Heparin Anti-Xa Level ABG pH POC ABG pO2 ABG pO2 ABG HCO3 ABG O2 Saturation ABG Base Excess POC ABG pCO2 ABG Hemoglobin ABG Oxyhemoglobin ABG Chloride ABG Glucose Oxyhemoglobin Sodium Potassium Chloride Carbon Dioxide BUN Creatinine Glucose POC Glucose 157 H 124 H 111 H Lactic Acid Calcium Phosphorus Magnesium AST ALT Lactate Dehydrogenase Total Bilirubin Direct Bilirubin CK-MB (CK-2) C-Reactive Protein NT-Pro-B Natriuret Pep Total Protein Albumin Arterial Blood Glucose Urine WBC (Auto) Urine Creatinine 02/15/20 02/15/20 02/15/20 06:59 06:59 11:14 WBC RBC Hgb 10.4 L Hct 33.7 L MCHC 31 L RDW 19.4 H MCV 80 L MCH 24 L Lymph % (Auto) [place] % (Auto) [place] # Eos # Lymph # (Auto) [place] # (Auto) Eos # (Auto) Seg Neutrophils % Seg Neuts % (Manual) Baso # (Auto) Lymphocytes % (Manual) Monocytes % (Manual) Eosinophils % (Manual) Basophils % (Manual) 2.0 H Seg Neutrophils # Seg Neutrophils # Man Lymphocytes # (Manual) Monocytes # (Manual) Eosinophils # (Manual) Nucleated RBC % 1.0 H Basophils # (Manual) 0.2 H PT INR APTT Heparin Anti-Xa Level ABG pH POC ABG pO2 ABG pO2 ABG HCO3 ABG O2 Saturation ABG Base Excess POC ABG pCO2 ABG Hemoglobin ABG Oxyhemoglobin ABG Chloride ABG Glucose Oxyhemoglobin Sodium 149 H Potassium Chloride 108.4 H Carbon Dioxide 31 H BUN 40 H Creatinine 0.7 L Glucose 150 H POC Glucose 128 H Lactic Acid Calcium Phosphorus Magnesium AST ALT Lactate Dehydrogenase Total Bilirubin Direct Bilirubin CK-MB (CK-2) C-Reactive Protein NT-Pro-B Natriuret Pep Total Protein Albumin Arterial Blood Glucose Urine WBC (Auto) Urine Creatinine 02/15/20 02/15/20 02/16/20 17:46 23:50 05:03 WBC RBC Hgb Hct MCHC RDW MCV MCH Lymph % (Auto) [place] % (Auto) [place] # Eos # Lymph # (Auto) [place] # (Auto) Eos # (Auto) Seg Neutrophils % Seg Neuts % (Manual) Baso # (Auto) Lymphocytes % (Manual) Monocytes % (Manual) Eosinophils % (Manual) Basophils % (Manual) Seg Neutrophils # Seg Neutrophils # Man Lymphocytes # (Manual) Monocytes # (Manual) Eosinophils # (Manual) Nucleated RBC % Basophils # (Manual) PT INR APTT Heparin Anti-Xa Level ABG pH POC ABG pO2 ABG pO2 ABG HCO3 ABG O2 Saturation ABG Base Excess POC ABG pCO2 ABG Hemoglobin ABG Oxyhemoglobin ABG Chloride ABG Glucose Oxyhemoglobin Sodium Potassium Chloride Carbon Dioxide BUN Creatinine Glucose POC Glucose 154 H 135 H 148 H Lactic Acid Calcium Phosphorus Magnesium AST ALT Lactate Dehydrogenase Total Bilirubin Direct Bilirubin CK-MB (CK-2) C-Reactive Protein NT-Pro-B Natriuret Pep Total Protein Albumin Arterial Blood Glucose Urine WBC (Auto) Urine Creatinine 02/16/20 02/16/20 02/16/20 07:53 11:28 17:52 WBC RBC Hgb Hct MCHC RDW MCV MCH Lymph % (Auto) [place] % (Auto) [place] # Eos # Lymph # (Auto) [place] # (Auto) Eos # (Auto) Seg Neutrophils % Seg Neuts % (Manual) Baso # (Auto) Lymphocytes % (Manual) Monocytes % (Manual) Eosinophils % (Manual) Basophils % (Manual) Seg Neutrophils # Seg Neutrophils # Man Lymphocytes # (Manual) Monocytes # (Manual) Eosinophils # (Manual) Nucleated RBC % Basophils # (Manual) PT INR APTT Heparin Anti-Xa Level ABG pH POC ABG pO2 ABG pO2 ABG HCO3 ABG O2 Saturation ABG Base Excess POC ABG pCO2 ABG Hemoglobin ABG Oxyhemoglobin ABG Chloride ABG Glucose Oxyhemoglobin Sodium Potassium Chloride 107.9 H Carbon Dioxide BUN 38 H Creatinine 0.6 L Glucose 151 H POC Glucose 123 H 152 H Lactic Acid Calcium Phosphorus Magnesium AST ALT Lactate Dehydrogenase Total Bilirubin Direct Bilirubin CK-MB (CK-2) C-Reactive Protein NT-Pro-B Natriuret Pep Total Protein Albumin Arterial Blood Glucose Urine WBC (Auto) Urine Creatinine 02/16/20 02/17/20 02/17/20 23:49 06:24 11:36 WBC RBC Hgb Hct MCHC RDW MCV MCH Lymph % (Auto) [place] % (Auto) [place] # Eos # Lymph # (Auto) [place] # (Auto) Eos # (Auto) Seg Neutrophils % Seg Neuts % (Manual) Baso # (Auto) Lymphocytes % (Manual) Monocytes % (Manual) Eosinophils % (Manual) Basophils % (Manual) Seg Neutrophils # Seg Neutrophils # Man Lymphocytes # (Manual) Monocytes # (Manual) Eosinophils # (Manual) Nucleated RBC % Basophils # (Manual) PT INR APTT Heparin Anti-Xa Level ABG pH POC ABG pO2 ABG pO2 ABG HCO3 ABG O2 Saturation ABG Base Excess POC ABG pCO2 ABG Hemoglobin ABG Oxyhemoglobin ABG Chloride ABG Glucose Oxyhemoglobin Sodium Potassium Chloride Carbon Dioxide BUN Creatinine Glucose POC Glucose 156 H 193 H 162 H Lactic Acid Calcium Phosphorus Magnesium AST ALT Lactate Dehydrogenase Total Bilirubin Direct Bilirubin CK-MB (CK-2) C-Reactive Protein NT-Pro-B Natriuret Pep Total Protein Albumin Arterial Blood Glucose Urine WBC (Auto) Urine Creatinine 02/17/20 02/17/20 02/18/20 17:55 23:28 05:11 WBC RBC Hgb Hct MCHC RDW MCV MCH Lymph % (Auto) [place] % (Auto) [place] # Eos # Lymph # (Auto) [place] # (Auto) Eos # (Auto) Seg Neutrophils % Seg Neuts % (Manual) Baso # (Auto) Lymphocytes % (Manual) Monocytes % (Manual) Eosinophils % (Manual) Basophils % (Manual) Seg Neutrophils # Seg Neutrophils # Man Lymphocytes # (Manual) Monocytes # (Manual) Eosinophils # (Manual) Nucleated RBC % Basophils # (Manual) PT INR APTT Heparin Anti-Xa Level ABG pH POC ABG pO2 ABG pO2 ABG HCO3 ABG O2 Saturation ABG Base Excess POC ABG pCO2 ABG Hemoglobin ABG Oxyhemoglobin ABG Chloride ABG Glucose Oxyhemoglobin Sodium Potassium Chloride Carbon Dioxide BUN Creatinine Glucose POC Glucose 165 H 146 H 122 H Lactic Acid Calcium Phosphorus Magnesium AST ALT Lactate Dehydrogenase Total Bilirubin Direct Bilirubin CK-MB (CK-2) C-Reactive Protein NT-Pro-B Natriuret Pep Total Protein Albumin Arterial Blood Glucose Urine WBC (Auto) Urine Creatinine 02/18/20 02/18/20 02/19/20 12:24 17:29 00:01 WBC RBC Hgb Hct MCHC RDW MCV MCH Lymph % (Auto) [place] % (Auto) [place] # Eos # Lymph # (Auto) [place] # (Auto) Eos # (Auto) Seg Neutrophils % Seg Neuts % (Manual) Baso # (Auto) Lymphocytes % (Manual) Monocytes % (Manual) Eosinophils % (Manual) Basophils % (Manual) Seg Neutrophils # Seg Neutrophils # Man Lymphocytes # (Manual) Monocytes # (Manual) Eosinophils # (Manual) Nucleated RBC % Basophils # (Manual) PT INR APTT Heparin Anti-Xa Level ABG pH POC ABG pO2 ABG pO2 ABG HCO3 ABG O2 Saturation ABG Base Excess POC ABG pCO2 ABG Hemoglobin ABG Oxyhemoglobin ABG Chloride ABG Glucose Oxyhemoglobin Sodium Potassium Chloride Carbon Dioxide BUN Creatinine Glucose POC Glucose 162 H 136 H 145 H Lactic Acid Calcium Phosphorus Magnesium AST ALT Lactate Dehydrogenase Total Bilirubin Direct Bilirubin CK-MB (CK-2) C-Reactive Protein NT-Pro-B Natriuret Pep Total Protein Albumin Arterial Blood Glucose Urine WBC (Auto) Urine Creatinine 02/19/20 02/19/20 02/19/20 05:53 11:44 17:32 WBC RBC Hgb Hct MCHC RDW MCV MCH Lymph % (Auto) [place] % (Auto) [place] # Eos # Lymph # (Auto) [place] # (Auto) Eos # (Auto) Seg Neutrophils % Seg Neuts % (Manual) Baso # (Auto) Lymphocytes % (Manual) Monocytes % (Manual) Eosinophils % (Manual) Basophils % (Manual) Seg Neutrophils # Seg Neutrophils # Man Lymphocytes # (Manual) Monocytes # (Manual) Eosinophils # (Manual) Nucleated RBC % Basophils # (Manual) PT INR APTT Heparin Anti-Xa Level ABG pH POC ABG pO2 ABG pO2 ABG HCO3 ABG O2 Saturation ABG Base Excess POC ABG pCO2 ABG Hemoglobin ABG Oxyhemoglobin ABG Chloride ABG Glucose Oxyhemoglobin Sodium Potassium Chloride Carbon Dioxide BUN Creatinine Glucose POC Glucose 116 H 120 H 154 H Lactic Acid Calcium Phosphorus Magnesium AST ALT Lactate Dehydrogenase Total Bilirubin Direct Bilirubin CK-MB (CK-2) C-Reactive Protein NT-Pro-B Natriuret Pep Total Protein Albumin Arterial Blood Glucose Urine WBC (Auto) Urine Creatinine 02/19/20 02/20/20 02/20/20 23:43 00:24 00:24 WBC RBC Hgb 9.4 L Hct 30.0 L MCHC 31 L RDW 20.4 H MCV 79 L MCH 25 L Lymph % (Auto) [place] % (Auto) 8.5 H [place] # Eos # Lymph # (Auto) [place] # (Auto) Eos # (Auto) Seg Neutrophils % Seg Neuts % (Manual) Baso # (Auto) Lymphocytes % (Manual) Monocytes % (Manual) Eosinophils % (Manual) Basophils % (Manual) Seg Neutrophils # Seg Neutrophils # Man Lymphocytes # (Manual) Monocytes # (Manual) Eosinophils # (Manual) Nucleated RBC % Basophils # (Manual) PT INR APTT Heparin Anti-Xa Level ABG pH POC ABG pO2 ABG pO2 ABG HCO3 ABG O2 Saturation ABG Base Excess POC ABG pCO2 ABG Hemoglobin ABG Oxyhemoglobin ABG Chloride ABG Glucose Oxyhemoglobin Sodium 147 H Potassium 3.4 L Chloride Carbon Dioxide 31 H BUN 34 H Creatinine 0.5 L Glucose 135 H POC Glucose 122 H Lactic Acid Calcium Phosphorus Magnesium AST ALT Lactate Dehydrogenase Total Bilirubin Direct Bilirubin CK-MB (CK-2) C-Reactive Protein NT-Pro-B Natriuret Pep Total Protein Albumin Arterial Blood Glucose Urine WBC (Auto) Urine Creatinine 02/20/20 02/20/20 02/20/20 06:07 06:45 12:03 WBC RBC Hgb Hct MCHC RDW MCV MCH Lymph % (Auto) [place] % (Auto) [place] # Eos # Lymph # (Auto) [place] # (Auto) Eos # (Auto) Seg Neutrophils % Seg Neuts % (Manual) Baso # (Auto) Lymphocytes % (Manual) Monocytes % (Manual) Eosinophils % (Manual) Basophils % (Manual) Seg Neutrophils # Seg Neutrophils # Man Lymphocytes # (Manual) Monocytes # (Manual) Eosinophils # (Manual) Nucleated RBC % Basophils # (Manual) PT INR APTT Heparin Anti-Xa Level ABG pH 7.461 H POC ABG pO2 ABG pO2 ABG HCO3 33.3 H ABG O2 Saturation ABG Base Excess 8.4 H POC ABG pCO2 ABG Hemoglobin 10.0 L ABG Oxyhemoglobin ABG Chloride ABG Glucose Oxyhemoglobin 94.1 L Sodium Potassium Chloride Carbon Dioxide BUN Creatinine Glucose POC Glucose 109 H 128 H Lactic Acid Calcium Phosphorus Magnesium AST ALT Lactate Dehydrogenase Total Bilirubin Direct Bilirubin CK-MB (CK-2) C-Reactive Protein NT-Pro-B Natriuret Pep Total Protein Albumin Arterial Blood Glucose Urine WBC (Auto) Urine Creatinine 02/20/20 02/20/20 02/21/20 18:02 23:55 05:42 WBC RBC Hgb Hct MCHC RDW MCV MCH Lymph % (Auto) [place] % (Auto) [place] # Eos # Lymph # (Auto) [place] # (Auto) Eos # (Auto) Seg Neutrophils % Seg Neuts % (Manual) Baso # (Auto) Lymphocytes % (Manual) Monocytes % (Manual) Eosinophils % (Manual) Basophils % (Manual) Seg Neutrophils # Seg Neutrophils # Man Lymphocytes # (Manual) Monocytes # (Manual) Eosinophils # (Manual) Nucleated RBC % Basophils # (Manual) PT INR APTT Heparin Anti-Xa Level ABG pH POC ABG pO2 ABG pO2 ABG HCO3 ABG O2 Saturation ABG Base Excess POC ABG pCO2 ABG Hemoglobin ABG Oxyhemoglobin ABG Chloride ABG Glucose Oxyhemoglobin Sodium Potassium Chloride Carbon Dioxide BUN Creatinine Glucose POC Glucose 118 H 125 H 127 H Lactic Acid Calcium Phosphorus Magnesium AST ALT Lactate Dehydrogenase Total Bilirubin Direct Bilirubin CK-MB (CK-2) C-Reactive Protein NT-Pro-B Natriuret Pep Total Protein Albumin Arterial Blood Glucose Urine WBC (Auto) Urine Creatinine 02/21/20 02/21/20 02/21/20 12:10 17:35 23:40 WBC RBC Hgb Hct MCHC RDW MCV MCH Lymph % (Auto) [place] % (Auto) [place] # Eos # Lymph # (Auto) [place] # (Auto) Eos # (Auto) Seg Neutrophils % Seg Neuts % (Manual) Baso # (Auto) Lymphocytes % (Manual) Monocytes % (Manual) Eosinophils % (Manual) Basophils % (Manual) Seg Neutrophils # Seg Neutrophils # Man Lymphocytes # (Manual) Monocytes # (Manual) Eosinophils # (Manual) Nucleated RBC % Basophils # (Manual) PT INR APTT Heparin Anti-Xa Level ABG pH POC ABG pO2 ABG pO2 ABG HCO3 ABG O2 Saturation ABG Base Excess POC ABG pCO2 ABG Hemoglobin ABG Oxyhemoglobin ABG Chloride ABG Glucose Oxyhemoglobin Sodium Potassium Chloride Carbon Dioxide BUN Creatinine Glucose POC Glucose 128 H 113 H 125 H Lactic Acid Calcium Phosphorus Magnesium AST ALT Lactate Dehydrogenase Total Bilirubin Direct Bilirubin CK-MB (CK-2) C-Reactive Protein NT-Pro-B Natriuret Pep Total Protein Albumin Arterial Blood Glucose Urine WBC (Auto) Urine Creatinine 02/22/20 02/22/20 02/22/20 05:57 08:06 08:06 WBC RBC Hgb 10.8 L Hct 35.2 L MCHC 31 L RDW 21.8 H MCV 80 L MCH 25 L Lymph % (Auto) [place] % (Auto) [place] # Eos # Lymph # (Auto) [place] # (Auto) Eos # (Auto) Seg Neutrophils % 71.5 H Seg Neuts % (Manual) Baso # (Auto) Lymphocytes % (Manual) Monocytes % (Manual) Eosinophils % (Manual) Basophils % (Manual) Seg Neutrophils # Seg Neutrophils # Man Lymphocytes # (Manual) Monocytes # (Manual) Eosinophils # (Manual) Nucleated RBC % Basophils # (Manual) PT INR APTT Heparin Anti-Xa Level ABG pH POC ABG pO2 ABG pO2 ABG HCO3 ABG O2 Saturation ABG Base Excess POC ABG pCO2 ABG Hemoglobin ABG Oxyhemoglobin ABG Chloride ABG Glucose Oxyhemoglobin Sodium 146 H Potassium Chloride Carbon Dioxide 34 H BUN 21 H Creatinine 0.4 L Glucose 149 H POC Glucose 138 H Lactic Acid Calcium Phosphorus Magnesium AST ALT Lactate Dehydrogenase Total Bilirubin Direct Bilirubin CK-MB (CK-2) C-Reactive Protein NT-Pro-B Natriuret Pep Total Protein Albumin Arterial Blood Glucose Urine WBC (Auto) Urine Creatinine 02/22/20 02/22/20 02/22/20 11:47 17:11 23:25 WBC RBC Hgb Hct MCHC RDW MCV MCH Lymph % (Auto) [place] % (Auto) [place] # Eos # Lymph # (Auto) [place] # (Auto) Eos # (Auto) Seg Neutrophils % Seg Neuts % (Manual) Baso # (Auto) Lymphocytes % (Manual) Monocytes % (Manual) Eosinophils % (Manual) Basophils % (Manual) Seg Neutrophils # Seg Neutrophils # Man Lymphocytes # (Manual) Monocytes # (Manual) Eosinophils # (Manual) Nucleated RBC % Basophils # (Manual) PT INR APTT Heparin Anti-Xa Level ABG pH POC ABG pO2 ABG pO2 ABG HCO3 ABG O2 Saturation ABG Base Excess POC ABG pCO2 ABG Hemoglobin ABG Oxyhemoglobin ABG Chloride ABG Glucose Oxyhemoglobin Sodium Potassium Chloride Carbon Dioxide BUN Creatinine Glucose POC Glucose 149 H 144 H 142 H Lactic Acid Calcium Phosphorus Magnesium AST ALT Lactate Dehydrogenase Total Bilirubin Direct Bilirubin CK-MB (CK-2) C-Reactive Protein NT-Pro-B Natriuret Pep Total Protein Albumin Arterial Blood Glucose Urine WBC (Auto) Urine Creatinine 02/23/20 02/23/20 02/23/20 05:22 11:37 18:14 WBC RBC Hgb Hct MCHC RDW MCV MCH Lymph % (Auto) [place] % (Auto) [place] # Eos # Lymph # (Auto) [place] # (Auto) Eos # (Auto) Seg Neutrophils % Seg Neuts % (Manual) Baso # (Auto) Lymphocytes % (Manual) Monocytes % (Manual) Eosinophils % (Manual) Basophils % (Manual) Seg Neutrophils # Seg Neutrophils # Man Lymphocytes # (Manual) Monocytes # (Manual) Eosinophils # (Manual) Nucleated RBC % Basophils # (Manual) PT INR APTT Heparin Anti-Xa Level ABG pH POC ABG pO2 ABG pO2 ABG HCO3 ABG O2 Saturation ABG Base Excess POC ABG pCO2 ABG Hemoglobin ABG Oxyhemoglobin ABG Chloride ABG Glucose Oxyhemoglobin Sodium Potassium Chloride Carbon Dioxide BUN Creatinine Glucose POC Glucose 144 H 113 H 127 H Lactic Acid Calcium Phosphorus Magnesium AST ALT Lactate Dehydrogenase Total Bilirubin Direct Bilirubin CK-MB (CK-2) C-Reactive Protein NT-Pro-B Natriuret Pep Total Protein Albumin Arterial Blood Glucose Urine WBC (Auto) Urine Creatinine 02/23/20 02/24/20 02/24/20 23:45 05:50 11:24 WBC RBC Hgb Hct MCHC RDW MCV MCH Lymph % (Auto) [place] % (Auto) [place] # Eos # Lymph # (Auto) [place] # (Auto) Eos # (Auto) Seg Neutrophils % Seg Neuts % (Manual) Baso # (Auto) Lymphocytes % (Manual) Monocytes % (Manual) Eosinophils % (Manual) Basophils % (Manual) Seg Neutrophils # Seg Neutrophils # Man Lymphocytes # (Manual) Monocytes # (Manual) Eosinophils # (Manual) Nucleated RBC % Basophils # (Manual) PT INR APTT Heparin Anti-Xa Level ABG pH POC ABG pO2 ABG pO2 ABG HCO3 ABG O2 Saturation ABG Base Excess POC ABG pCO2 ABG Hemoglobin ABG Oxyhemoglobin ABG Chloride ABG Glucose Oxyhemoglobin Sodium Potassium Chloride Carbon Dioxide BUN Creatinine Glucose POC Glucose 123 H 117 H 126 H Lactic Acid Calcium Phosphorus Magnesium AST ALT Lactate Dehydrogenase Total Bilirubin Direct Bilirubin CK-MB (CK-2) C-Reactive Protein NT-Pro-B Natriuret Pep Total Protein Albumin Arterial Blood Glucose Urine WBC (Auto) Urine Creatinine 02/24/20 02/24/20 02/25/20 18:35 23:27 05:20 WBC RBC Hgb Hct MCHC RDW MCV MCH Lymph % (Auto) [place] % (Auto) [place] # Eos # Lymph # (Auto) [place] # (Auto) Eos # (Auto) Seg Neutrophils % Seg Neuts % (Manual) Baso # (Auto) Lymphocytes % (Manual) Monocytes % (Manual) Eosinophils % (Manual) Basophils % (Manual) Seg Neutrophils # Seg Neutrophils # Man Lymphocytes # (Manual) Monocytes # (Manual) Eosinophils # (Manual) Nucleated RBC % Basophils # (Manual) PT INR APTT Heparin Anti-Xa Level ABG pH POC ABG pO2 ABG pO2 ABG HCO3 ABG O2 Saturation ABG Base Excess POC ABG pCO2 ABG Hemoglobin ABG Oxyhemoglobin ABG Chloride ABG Glucose Oxyhemoglobin Sodium Potassium Chloride Carbon Dioxide BUN Creatinine Glucose POC Glucose 121 H 127 H 133 H Lactic Acid Calcium Phosphorus Magnesium AST ALT Lactate Dehydrogenase Total Bilirubin Direct Bilirubin CK-MB (CK-2) C-Reactive Protein NT-Pro-B Natriuret Pep Total Protein Albumin Arterial Blood Glucose Urine WBC (Auto) Urine Creatinine 02/25/20 02/25/20 02/25/20 12:08 17:26 23:33 WBC RBC Hgb Hct MCHC RDW MCV MCH Lymph % (Auto) [place] % (Auto) [place] # Eos # Lymph # (Auto) [place] # (Auto) Eos # (Auto) Seg Neutrophils % Seg Neuts % (Manual) Baso # (Auto) Lymphocytes % (Manual) Monocytes % (Manual) Eosinophils % (Manual) Basophils % (Manual) Seg Neutrophils # Seg Neutrophils # Man Lymphocytes # (Manual) Monocytes # (Manual) Eosinophils # (Manual) Nucleated RBC % Basophils # (Manual) PT INR APTT Heparin Anti-Xa Level ABG pH POC ABG pO2 ABG pO2 ABG HCO3 ABG O2 Saturation ABG Base Excess POC ABG pCO2 ABG Hemoglobin ABG Oxyhemoglobin ABG Chloride ABG Glucose Oxyhemoglobin Sodium Potassium Chloride Carbon Dioxide BUN Creatinine Glucose POC Glucose 109 H 120 H 120 H Lactic Acid Calcium Phosphorus Magnesium AST ALT Lactate Dehydrogenase Total Bilirubin Direct Bilirubin CK-MB (CK-2) C-Reactive Protein NT-Pro-B Natriuret Pep Total Protein Albumin Arterial Blood Glucose Urine WBC (Auto) Urine Creatinine 02/26/20 02/26/20 02/27/20 05:33 07:50 12:13 WBC RBC Hgb Hct MCHC RDW MCV MCH Lymph % (Auto) [place] % (Auto) [place] # Eos # Lymph # (Auto) [place] # (Auto) Eos # (Auto) Seg Neutrophils % Seg Neuts % (Manual) Baso # (Auto) Lymphocytes % (Manual) Monocytes % (Manual) Eosinophils % (Manual) Basophils % (Manual) Seg Neutrophils # Seg Neutrophils # Man Lymphocytes # (Manual) Monocytes # (Manual) Eosinophils # (Manual) Nucleated RBC % Basophils # (Manual) PT INR APTT Heparin Anti-Xa Level ABG pH POC ABG pO2 ABG pO2 ABG HCO3 ABG O2 Saturation ABG Base Excess POC ABG pCO2 ABG Hemoglobin ABG Oxyhemoglobin ABG Chloride ABG Glucose Oxyhemoglobin Sodium Potassium Chloride Carbon Dioxide BUN Creatinine Glucose POC Glucose 106 H 130 H Lactic Acid Calcium Phosphorus Magnesium AST ALT Lactate Dehydrogenase Total Bilirubin Direct Bilirubin CK-MB (CK-2) C-Reactive Protein NT-Pro-B Natriuret Pep Total Protein Albumin Arterial Blood Glucose Urine WBC (Auto) > 182.0 H Urine Creatinine 02/27/20 02/27/20 02/28/20 18:20 23:33 05:01 WBC RBC Hgb Hct MCHC RDW MCV MCH Lymph % (Auto) [place] % (Auto) [place] # Eos # Lymph # (Auto) [place] # (Auto) Eos # (Auto) Seg Neutrophils % Seg Neuts % (Manual) Baso # (Auto) Lymphocytes % (Manual) Monocytes % (Manual) Eosinophils % (Manual) Basophils % (Manual) Seg Neutrophils # Seg Neutrophils # Man Lymphocytes # (Manual) Monocytes # (Manual) Eosinophils # (Manual) Nucleated RBC % Basophils # (Manual) PT INR APTT Heparin Anti-Xa Level ABG pH POC ABG pO2 ABG pO2 ABG HCO3 ABG O2 Saturation ABG Base Excess POC ABG pCO2 ABG Hemoglobin ABG Oxyhemoglobin ABG Chloride ABG Glucose Oxyhemoglobin Sodium Potassium Chloride Carbon Dioxide BUN Creatinine Glucose POC Glucose 109 H 124 H 134 H Lactic Acid Calcium Phosphorus Magnesium AST ALT Lactate Dehydrogenase Total Bilirubin Direct Bilirubin CK-MB (CK-2) C-Reactive Protein NT-Pro-B Natriuret Pep Total Protein Albumin Arterial Blood Glucose Urine WBC (Auto) Urine Creatinine 02/28/20 02/28/20 02/28/20 11:54 18:16 23:03 WBC RBC Hgb Hct MCHC RDW MCV MCH Lymph % (Auto) [place] % (Auto) [place] # Eos # Lymph # (Auto) [place] # (Auto) Eos # (Auto) Seg Neutrophils % Seg Neuts % (Manual) Baso # (Auto) Lymphocytes % (Manual) Monocytes % (Manual) Eosinophils % (Manual) Basophils % (Manual) Seg Neutrophils # Seg Neutrophils # Man Lymphocytes # (Manual) Monocytes # (Manual) Eosinophils # (Manual) Nucleated RBC % Basophils # (Manual) PT INR APTT Heparin Anti-Xa Level ABG pH POC ABG pO2 ABG pO2 ABG HCO3 ABG O2 Saturation ABG Base Excess POC ABG pCO2 ABG Hemoglobin ABG Oxyhemoglobin ABG Chloride ABG Glucose Oxyhemoglobin Sodium Potassium Chloride Carbon Dioxide BUN Creatinine Glucose POC Glucose 133 H 134 H 146 H Lactic Acid Calcium Phosphorus Magnesium AST ALT Lactate Dehydrogenase Total Bilirubin Direct Bilirubin CK-MB (CK-2) C-Reactive Protein NT-Pro-B Natriuret Pep Total Protein Albumin Arterial Blood Glucose Urine WBC (Auto) Urine Creatinine 02/29/20 02/29/20 02/29/20 05:24 11:34 17:12 WBC RBC Hgb Hct MCHC RDW MCV MCH Lymph % (Auto) [place] % (Auto) [place] # Eos # Lymph # (Auto) [place] # (Auto) Eos # (Auto) Seg Neutrophils % Seg Neuts % (Manual) Baso # (Auto) Lymphocytes % (Manual) Monocytes % (Manual) Eosinophils % (Manual) Basophils % (Manual) Seg Neutrophils # Seg Neutrophils # Man Lymphocytes # (Manual) Monocytes # (Manual) Eosinophils # (Manual) Nucleated RBC % Basophils # (Manual) PT INR APTT Heparin Anti-Xa Level ABG pH POC ABG pO2 ABG pO2 ABG HCO3 ABG O2 Saturation ABG Base Excess POC ABG pCO2 ABG Hemoglobin ABG Oxyhemoglobin ABG Chloride ABG Glucose Oxyhemoglobin Sodium Potassium Chloride Carbon Dioxide BUN Creatinine Glucose POC Glucose 139 H 141 H 157 H Lactic Acid Calcium Phosphorus Magnesium AST ALT Lactate Dehydrogenase Total Bilirubin Direct Bilirubin CK-MB (CK-2) C-Reactive Protein NT-Pro-B Natriuret Pep Total Protein Albumin Arterial Blood Glucose Urine WBC (Auto) Urine Creatinine 02/29/20 03/01/20 23:35 06:00 WBC RBC Hgb Hct MCHC RDW MCV MCH Lymph % (Auto) [place] % (Auto) [place] # Eos # Lymph # (Auto) [place] # (Auto) Eos # (Auto) Seg Neutrophils % Seg Neuts % (Manual) Baso # (Auto) Lymphocytes % (Manual) Monocytes % (Manual) Eosinophils % (Manual) Basophils % (Manual) Seg Neutrophils # Seg Neutrophils # Man Lymphocytes # (Manual) Monocytes # (Manual) Eosinophils # (Manual) Nucleated RBC % Basophils # (Manual) PT INR APTT Heparin Anti-Xa Level ABG pH POC ABG pO2 ABG pO2 ABG HCO3 ABG O2 Saturation ABG Base Excess POC ABG pCO2 ABG Hemoglobin ABG Oxyhemoglobin ABG Chloride ABG Glucose Oxyhemoglobin Sodium Potassium Chloride Carbon Dioxide BUN Creatinine Glucose POC Glucose 120 H 132 H Lactic Acid Calcium Phosphorus Magnesium AST ALT Lactate Dehydrogenase Total Bilirubin Direct Bilirubin CK-MB (CK-2) C-Reactive Protein NT-Pro-B Natriuret Pep Total Protein Albumin Arterial Blood Glucose Urine WBC (Auto) Urine Creatinine Chest x-ray: report reviewed, image reviewed Additional Studies: CHEST 1 VIEW 03/01/20 INDICATION / CLINICAL INFORMATION: Follow up on pneumonia. COMPARISON: 02/18/2020 FINDINGS: SUPPORT DEVICES: Stable, satisfactory device positioning. HEART / MEDIASTINUM: Stable. LUNGS / PLEURA: Bilateral patchy and confluent airspace opacities with diffuse interstitial haziness. Findings are worst in the right lower lung and essentially unchanged when compared to the prior radiograph from 02/18/2020. No pneumothorax. ADDITIONAL FINDINGS: No significant additional findings. IMPRESSION: 1. Essentially unchanged airspace disease when compared to 02/18/2020. Allied health notes reviewed: nursing
[2020-03-01] MEDS: QUEtiapine 100 MG TAB PO SCH ×2 (11:07→22:06)
[2020-03-01] MEDS: LANSOPRAZOLE 30 MG SOLUTAB FEEDTUBE SCH (11:07)
[2020-03-01] MEDS: MIDODRINE 5 MG TAB PO SCH ×3 (11:07→18:17)
[2020-03-01] MEDS: METOPROLOL TARTRATE 25 MG TAB FEEDTUBE SCH ×2 (11:07→22:11)
[2020-03-01] MEDS: CLOPIDOGREL 75 MG TAB PO SCH (11:08)
[2020-03-01] MEDS: DOCUSATE SODIUM 100 MG/10 ML ORAL LIQD FEEDTUBE SCH ×2 (11:08→22:05)
[2020-03-01] MEDS: APIXABAN 5 MG TAB PO SCH ×2 (11:08→22:05)
--- NOTE | 2020-03-01 13:00 | Progress Note ---
Assessment and Plan Assessment and plan: --Ischemic cardiomyopathy Cardiology is following, status post cardiac catheterization on 01/22/2020; Cor onary artery disease status post PCI and stent to the LAD Continue current cardiac medications --Acute on chronic hypoxemic respiratory failure; Patient has tracheostomy on vent Continue nebulizers, , trach care Wean off ventilator as tolerated Pulmonary critical following --Acute exacerbation of COPD; Patient is currently on ventilatory support Continue nebulizers --Left lower lobe PE; Continue Eliquis, ventilatory support --Acute right lower extremity DVT; Patient is on Eliquis --Bilateral multifocal pneumonia/community-acquired Completed antibiotics, improved --Severe sepsis/bilateral pneumonia: Completed antibiotics COVID-19 test; 11/24/2019; negative 11/26/2019; negative 12/29/2019: Negative --Paroxysmal atrial fibrillation; Now rate controlled, Stable on amiodarone and Eliquis --Acute on chronic combined systolic and diastolic congestive heart failure Ischemic cardiomyopathy left ventricular ejection fraction 40 to 45% --H/o CAD [[facility] 12/2018 in-stent restenosis] Patient is stable on current cardiac medications --Hypertensive emergency; present on admission Reasonable blood pressures, continue current antihypertensives As needed medications --History of alcohol abuse/alcohol withdrawal; Was on CIWA protocol, now stable --Oropharyngeal dysphagia; status post PEG placement Continue PEG feeds per protocol --History of partial small bowel obstruction; resolved --Obesity; BMI 34.7 Patient needs weight reduction when medically stable --Severe protein calorie malnutrition/hypoalbuminemia Nutrition supplements, dietitian following, PEG feeds --DVT prophylaxis;Eliquis --Full CODE STATUS Discharge planning 01/05; Pt stable. NGT output 650cc over 24 hours, bilious. No f/c, WBC within normal limits. cont NG suction and cont to hold TF 01/06: Abs series - mild improvement in small bowel distension in mid abdomen, normal gas/stool pattern in colon. NGT in duodenum. Continue to hold tube feeding, maintain NG tube with low intermittent suction. Patient's was updated by phone. Continue to provide supportive care and monitor clinically. 01/07: +BMs today and NGT/PEG output appears more gastric today. Plan to clamp NGT, if tolerates start TF from tomorrow. cont supportive care. 01/08; Gastric output decreased over last 24 hours. NGT has been clamped x 24 hours. plan to dc NGT and to start TTF via PEG - vital HF @10cc/hr 01/09: clinically stable, tolerating TF. monitor BMP, wean off from vent as tolerated clinically stable, on TF. wean off vent as tolerated 01/11: wean off from vent, cont to monitor, on TF 01/12: wean off from vent, cont to monitor, on TF. need placement - unfunded 01/13; remains on ventilatory support, unable to wean, DC planning possible LTAC, unfunded 01/14; patient of ventilatory support, T-piece tracheostomy on oxygen, LTAC placement per case management 01/16; tracheostomy, patient on full ventilatory support, wean off vent support as tolerated, pending LTAC placement, social financial issues 01/17; awaiting LTAC placement, insurance and financial issues 01/18; patient tracheostomy remains on ventilatory support 01/19; wean off ventilator as tolerated 01/20; remains on ventilatory support, patient complains of intermittent chest pain, cardiology recommend left heart catheterization tomorrow 01/22/2020. Patient for left heart catheterization per cardiology. Patient remains on AC mode ventilation rate 12, tidal volume 450, FiO2 30% and PEEP of 6. Continue tracheostomy care, airway management and secretion control. 01/23/2020. Cardiac catheterization completed yesterday revealed widely patent previous LAD stent with mild nonobstructive atherosclerosis of the right mid coronary artery and rest of the coronary system was without significant atherosclerosis. The left ventricle ejection fraction was mildly impaired at 40 to 45%. There was some hypokinesis of the basal inferior wall suggestive of previous or recent infarct. Continue GDMT for coronary artery disease including beta blockers, topical nitrates, statin and Plavix. Continue Eliquis for paroxysmal atrial fibrillation and PE. Continue diuresis with Lasix and follow electrolytes closely. Continue Robinul and scopolamine for secretion control and daily SBT per pulmonary. Also, continue bronchodilators and routine trach care/airway management. T-piece trials per pulmonary as tolerated. 01/24/2020. Recent cardiac catheterization has documented widely patent left anterior descending artery stent with minimal nonobstructive diffuse coronary artery disease in the rest of the coronary arteries. Evidence of ischemic cardiomyopathy with inferior wall hypokinesis. Continue with guideline directed medical therapy. Continue Robinul and scopolamine for secretion control and daily SBT per pulmonary. Continue bronchodilators and routine trach care/airway management. T-piece trials per pulmonary as tolerated. 01/25/2020. Continue with guideline directed medical therapy for systolic heart failure. Cardiac catheterization revealed evidence of ischemic cardiomyopathy with inferior wall hypokinesis (EF 40-45%). Patient currently on T-piece with oxygen 10 L/min FiO2 40%. Continue Robinul and scopolamine for secretion c ontrol. Continue bronchodilators and routine trach care/airway management. 02/03: Mental status more improved, agree with Reglan will change to IV scheduled for two days, no new vomiting. Pseudomonas A in Sputum. 02/04: Clinical improving, amiodarone discontinued due to LFTs, continue Metoprolol.d/w GI, started on Golytely to clear impaction. Started on dialy Miralax. 02/05: Continue supportive care. Noted bowel movement, continue bowel regimen 02/06: Cardiology input noted beta-hebert increased for better suppression of atrial fibrillation. Continue to monitor, no other evidence of nausea vomiting noted. Discussed with respiratory therapist will be continued on weaning protocol with pressure support today. 02/07: Patient successfully weaned off the ventilator, No new complaints, co ntinue monitoring, BM noted, Discussed with pulmonary, 02/08; tracheostomy on T-piece, patient is more alert and awake today 02/09; clinically no change, tracheostomy on vent 02/10; tracheostomy on vent, full CODE STATUS, poor prognosis, 02/11; clinically no change, remains on ventilatory support, full CODE STATUS, discussed with spouse Ms. Paulette Araiza extensively today 02/12. Patient resting comfortably no change on vent with tracheostomy. Still unable to wean. Some increased crackles today. 02/13: Still unable to wean from the vent. Overall prognosis remains extremely poor. 02/14; remains critically ill, tracheostomy on vent, unable to wean, poor prognosis, full CODE STATUS 02/15; patient is more alert and awake today, chronic tracheostomy on T-piece, continue current management DC planning per case management. Disposition very difficult due to lack of resources and insurance 02/17/2020. Patient remains on mechanical ventilation and tolerating PSV trials. Patient currently with PSV 10/6 at FiO2 of 30%. 02/18/2020. Patient currently on PSV 10/6 with FiO2 of 40%. 40% T-piece trial was attempted but patient unable to tolerate due to saturations dropping into the 80s and heart rate in the 140s. Therefore, patient placed back on PSV. Continue anticoagulation with Eliquis. Continue secretion control with Robinul and scopolamine. Continue rate control with metoprolol and digoxin. 02/19/2020. Patient currently on PSV 10/6 with FiO2 of 30%. T-piece trial attempted yesterday but patient did not tolerate. Continue T-piece trials as tolerated. Continue anticoagulation with Eliquis. Continue secretion control with Robinul and scopolamine. Continue rate control with metoprolol and digoxin. Continue to follow with case management with regards to discharge kyrie nning. 02/20/2020. Patient continues to tolerate PSV 10/6. Continue rate control with metoprolol and digoxin. Amiodarone discontinued due to elevated liver transaminases. Eliquis for anticoagulation acute PE/DVT. 02/21/2020. Patient continues to tolerate PSV 10/6 at FiO2 of 30%. Continue rate control with metoprolol and digoxin. Amiodarone discontinued due to elevated liver transaminases. Eliquis for anticoagulation acute PE/DVT. 02/22/2020. Patient continues to tolerate PSV 10/6 at FiO2 of 30%. Continue rate control with metoprolol and digoxin. Amiodarone discontinued due to kasia vated liver transaminases. Eliquis for anticoagulation acute PE/DVT. 02/22. Awake and alert on vent. Vitals stable. 02/23. Awake and alert on vent. Requests for ice. Vitals stable 02/24. Trach to vent. Continue rate control with metoprolol and digoxin. Amiodarone discontinued due to elevated liver transaminases. Eliquis for anticoagulation of acute PE/DVT. Transferred to [facility] 02/25. Seen in [facility]. Requests for ice. RN to provide a cube of ice. Vitals stable. 02/26. No change in medical condition. Slightly tachy this AM. Will monitor. 02/27. Cardiology started him on a beta hebert. Still on vent 02/28. Discharge planning as per spanish speaking babysitter. Still on vent. Tachycardia noted. 03/01/2020; patient is tachycardic, still on the vent. Discharge management as per spanish speaking babysitter. The high probability of a clinically significant, sudden or life threatening deterioration of the [Respiratory, cardiovascular & neurological] system(s) required my full and direct attention, intervention and personal management. The aggregate critical care time was [32] minutes without overlap. Time includes spent on [x] Data Review and interpretation [x] Patient assessment and monitoring of vital signs [x] Documentation [x] Medication orders and management History Interval history: Patient was seen and evaluated this morning Patient trach and intubated Hospitalist Physical - Physical exam Narrative exam: Patient is on trach Patient is obese Vital signs as documented. Head exam is unremarkable. No scleral icterus . Neck is without jugular venous distension, thyromegaly, or carotid bruits. Lungs intubated and on mechanical ventilator Cardiac exam reveals regular rate and Rhythm. Abdominal exam reveals normal bowel sounds, nontender, no organomegaly. Extremities are nonedematous and both femoral and pedal pulses are normal. BASS VIOL REPAIRER: Patient was alert but is not able to talk because of the trach. - Constitutional Vitals: Temp Pulse Resp BP Pulse Ox 98.2 F 131 H 37 H 121/93 99 03/01/20 08:00 03/01/20 11:07 03/01/20 10:00 03/01/20 10:00 03/01/20 10:00 General appearance: Present: no acute distress, well-nourished, obese, other (Tracheostomy responds to simple questions appropriately) HEART Score - HEART Score Troponin: Troponin T < 0.010 ng/mL (0.00-0.029) 01/19/20 01:35 Results - Labs CBC & Chem 7: 02/22/20 08:06 02/22/20 08:06 Labs: Laboratory Last Values WBC 9.2 K/mm3 (4.5-11.0) 02/22/20 08:06 RBC 4.42 M/mm3 (3.65-5.03) 02/22/20 08:06 Hgb 10.8 gm/dl (11.8-15.2) L 02/22/20 08:06 Hct 35.2 % (35.5-45.6) L 02/22/20 08:06 MCV 80 fl (84-94) L 02/22/20 08:06 MCH 25 pg (28-32) L 02/22/20 08:06 MCHC 31 % (32-34) L 02/22/20 08:06 RDW 21.8 % (13.2-15.2) H 02/22/20 08:06 Plt Count 216 K/mm3 (140-440) 02/22/20 08:06 Lymph % (Auto) 19.0 % (13.4-35.0) 02/22/20 08:06 Gillespie % (Auto) 6.5 % (0.0-7.3) 02/22/20 08:06 Eos % (Auto) 2.1 % (0.0-4.3) 02/22/20 08:06 Baso % (Auto) 0.9 % (0.0-1.8) 02/22/20 08:06 Lymph # (Auto) 1.8 K/mm3 (1.2-5.4) 02/22/20 08:06 Gillespie # (Auto) 0.6 K/mm3 (0.0-0.8) 02/22/20 08:06 Eos # (Auto) 0.2 K/mm3 (0.0-0.4) 02/22/20 08:06 Baso # (Auto) 0.1 K/mm3 (0.0-0.1) 02/22/20 08:06 Add Manual Diff Complete 02/15/20 06:59 Total Counted 100 02/15/20 06:59 Seg Neutrophils % 71.5 % (40.0-70.0) H 02/22/20 08:06 Seg Neuts % (Manual) 58.0 % (40.0-70.0) 02/15/20 06:59 Band Neutrophils % 0 % 02/15/20 06:59 Lymphocytes % (Manual) 34.0 % (13.4-35.0) 02/15/20 06:59 Reactive Lymphs % (Man) 1.0 % 02/15/20 06:59 Monocytes % (Manual) 4.0 % (0.0-7.3) 02/15/20 06:59 Eosinophils % (Manual) 0 % (0.0-4.3) 02/15/20 06:59 Basophils % (Manual) 2.0 % (0.0-1.8) H 02/15/20 06:59 Metamyelocytes % 1.0 % 02/15/20 06:59 Myelocytes % 0 % 02/15/20 06:59 Promyelocytes % 0 % 02/15/20 06:59 Blast Cells % 0 % 02/15/20 06:59 Nucleated RBC % 1.0 % (0.0-0.9) H 02/15/20 06:59 Seg Neutrophils # 6.6 K/mm3 (1.8-7.7) 02/22/20 08:06 Seg Neutrophils # Man 5.9 K/mm3 (1.8-7.7) 02/15/20 06:59 Band Neutrophils # 0.0 K/mm3 02/15/20 06:59 Lymphocytes # (Manual) 3.5 K/mm3 (1.2-5.4) 02/15/20 06:59 Abs React Lymphs (Man) 0.1 K/mm3 02/15/20 06:59 Monocytes # (Manual) 0.4 K/mm3 (0.0-0.8) 02/15/20 06:59 Eosinophils # (Manual) 0.0 K/mm3 (0.0-0.4) 02/15/20 06:59 Basophils # (Manual) 0.2 K/mm3 (0.0-0.1) H 02/15/20 06:59 Metamyelocytes # 0.1 K/mm3 02/15/20 06:59 Myelocytes # 0.0 K/mm3 02/15/20 06:59 Promyelocytes # 0.0 K/mm3 02/15/20 06:59 Blast Cells # 0.0 K/mm3 02/15/20 06:59 WBC Morphology Not Reportable 02/15/20 06:59 Hypersegmented Neuts Not Reportable 02/15/20 06:59 Hyposegmented Neuts Not Reportable 02/15/20 06:59 Hypogranular Neuts Not Reportable 02/15/20 06:59 Smudge Cells Not Reportable 02/15/20 06:59 Toxic Granulation Not Reportable 02/15/20 06:59 Toxic Vacuolation Not Reportable 02/15/20 06:59 Dohle Bodies Not Reportable 02/15/20 06:59 Pelger-Huet Anomaly Not Reportable 02/15/20 06:59 Hector Rods Not Reportable 02/15/20 06:59 Platelet Estimate Consistent w auto 02/15/20 06:59 Clumped Platelets Not Reportable 02/15/20 06:59 Plt Clumps, EDTA Not Reportable 02/15/20 06:59 Large Platelets Not Reportable 02/15/20 06:59 Giant Platelets Not Reportable 02/15/20 06:59 Platelet Satelliting Not Reportable 02/15/20 06:59 Plt Morphology Comment Giant platelets 02/15/20 06:59 RBC Morphology Not Reportable 02/15/20 06:59 Dimorphic RBCs Not Reportable 02/15/20 06:59 Polychromasia Not Reportable 02/15/20 06:59 Hypochromasia 1+ 02/15/20 06:59 Poikilocytosis Few 02/15/20 06:59 Anisocytosis 1+ 02/15/20 06:59 Microcytosis Not Reportable 02/15/20 06:59 Macrocytosis Not Reportable 02/15/20 06:59 Spherocytes Not Reportable 02/15/20 06:59 Pappenheimer Bodies Not Reportable 02/15/20 06:59 Sickle Cells Not Reportable 02/15/20 06:59 Target Cells 1+ 02/15/20 06:59 Tear Drop Cells Few 02/15/20 06:59 Ovalocytes Not Reportable 02/15/20 06:59 Helmet Cells Not Reportable 02/15/20 06:59 [place] Bodies Not Reportable 02/15/20 06:59 [place] Rings Not Reportable 02/15/20 06:59 Oc Cells Not Reportable 02/15/20 06:59 Bite Cells Not Reportable 02/15/20 06:59 Crenated Cell Not Reportable 02/15/20 06:59 Elliptocytes Few 02/15/20 06:59 Acanthocytes (Spur) Not Reportable 02/15/20 06:59 Rouleaux Not Reportable 02/15/20 06:59 Hemoglobin C Crystals Not Reportable 02/15/20 06:59 Schistocytes Not Reportable 02/15/20 06:59 Malaria parasites Not Reportable 02/15/20 06:59 Clifford Bodies Not Reportable 02/15/20 06:59 Hem Pathologist Commnt No 02/15/20 06:59 PT 27.0 Sec. (12.2-14.9) H 02/07/20 15:03 INR 2.46 (0.87-1.13) H 02/07/20 15:03 APTT 31.5 Sec. (24.2-36.6) 01/22/20 09:58 Heparin Anti-Xa Level 1.34 U.I./ml (0.3-0.7) H 01/22/20 04:45 ABG pH 7.461 pH Units (7.350-7.450) H 02/20/20 06:45 POC ABG pCO2 34.8 mmHg (32.0-48.0) 02/11/20 14:11 ABG pCO2 47.8 mm Hg 02/20/20 06:45 POC ABG pO2 77.7 mmHg (83-108) L 02/11/20 14:11 ABG pO2 88.7 mm Hg (80.0-90.0) 02/20/20 06:45 POC ABG HCO3 26.7 02/11/20 14:11 ABG HCO3 33.3 mmol/L (20.0-26.0) H 02/20/20 06:45 ABG O2 Saturation 97.2 % (95.0-99.0) 02/20/20 06:45 ABG O2 Content 13.3 (0.0-44) 02/20/20 06:45 POC ABG Base Excess 3.6 02/11/20 14:11 ABG Base Excess 8.4 mmol/L (-2.0-3.0) H 02/20/20 06:45 ABG Hemoglobin 10.0 gm/dl (14.0-18.0) L 02/20/20 06:45 ABG Oxyhemoglobin 84 (94-98) L 12/22/19 03:22 ABG Carboxyhemoglobin 2.9 % (0.0-5.0) 02/20/20 06:45 ABG Methemoglobin 0.4 % (0.0-1.5) 02/20/20 06:45 ABG Sodium 144.7 mmol/L (136.0-145.0) 02/11/20 14:11 ABG Potassium 3.5 mmol/L (3.40-4.50) 02/11/20 14:11 ABG Chloride 108.0 mmol/L (98-107) H 02/11/20 14:11 ABG Glucose 151 mg/dL (65-95) H 02/11/20 14:11 Oxyhemoglobin 94.1 % (95.0-99.0) L 02/20/20 06:45 Carboxyhemoglobin 0.7 (0.5-1.5) 12/22/19 03:22 FiO2 30 % 02/20/20 06:45 Sodium 146 mmol/L (137-145) H 02/22/20 08:06 Potassium 3.7 mmol/L (3.6-5.0) 02/22/20 08:06 Chloride 106.1 mmol/L (98-107) 02/22/20 08:06 Carbon Dioxide 34 mmol/L (22-30) H 02/22/20 08:06 Anion Gap 10 mmol/L 02/22/20 08:06 BUN 21 mg/dL (9-20) H 02/22/20 08:06 Creatinine 0.4 mg/dL (0.8-1.3) L 02/22/20 08:06 Estimated GFR > 60 ml/min 02/22/20 08:06 BUN/Creatinine Ratio 53 % 02/22/20 08:06 Glucose 149 mg/dL (75-100) H 02/22/20 08:06 POC Glucose 136 mg/dL (70-105) H 03/01/20 11:53 Lactic Acid 1.60 mmol/L (0.7-2.0) 02/03/20 12:49 Calcium 9.5 mg/dL (8.4-10.2) 02/22/20 08:06 Ferritin 84.4 ng/mL (30.0-300.0) 11/24/19 04:53 Phosphorus 4.10 mg/dL (2.5-4.5) 01/31/20 19:24 Magnesium 2.40 mg/dL (1.7-2.3) H 02/10/20 07:40 Total Bilirubin 1.30 mg/dL (0.1-1.2) H 02/08/20 19:00 Direct Bilirubin 0.9 mg/dL (0-0.2) H 02/08/20 19:00 Indirect Bilirubin 0.4 mg/dL 02/08/20 19:00 Total Creatine Kinase 141 units/L (55-170) 11/24/19 02:53 CK-MB (CK-2) 4.3 ng/mL (0.0-4.0) H 11/24/19 02:53 AST 309 units/L (5-40) H 02/08/20 19:00 ALT 650 units/L (7-56) H 02/08/20 19:00 CK-MB (CK-2) Rel Index 3.0 (0-4) 11/24/19 02:53 Alkaline Phosphatase 109 units/L (35-129) 02/08/20 19:00 C-Reactive Protein 8.50 mg/dL (0.00-1.30) H 12/01/19 12:16 Ammonia 35.0 umol/L (25-60) 02/03/20 12:49 Lactate Dehydrogenase 228 units/L (91-180) H 12/19/19 04:45 Troponin T < 0.010 ng/mL (0.00-0.029) 01/19/20 01:35 NT-Pro-B Natriuret Pep 3866 pg/mL (0-900) H 01/01/20 10:40 Total Protein 6.2 g/dL (6.3-8.2) L 02/08/20 19:00 Albumin 2.7 g/dL (3.9-5) L 02/08/20 19:00 Albumin/Globulin Ratio 0.8 % 02/08/20 19:00 Procalcitonin 0.44 ng/mL (<0.15) 02/03/20 12:49 Arterial Blood Glucose 151 mg/dL (65-95) H 02/11/20 14:11 Arterial Blood Ionized Calcium 4.7 mg/dL (4.6-5.3) 02/11/20 14:11 Urine Color Kathryn (Yellow) 02/26/20 07:50 Urine Turbidity Clear (Clear) 02/26/20 07:50 Urine pH 5.0 (5.0-7.0) 02/26/20 07:50 Ur Specific [place] 1.025 (1.003-1.030) 02/26/20 07:50 Urine Protein 30 mg/dl mg/dL (Negative) 02/26/20 07:50 Urine Glucose (UA) Neg mg/dL (Negative) 02/26/20 07:50 Urine Ketones Neg mg/dL (Negative) 02/26/20 07:50 Urine Blood Sm (Negative) 02/26/20 07:50 Urine Nitrite Neg (Negative) 02/26/20 07:50 Urine Bilirubin Neg (Negative) 02/26/20 07:50 Urine Urobilinogen 4.0 mg/dL (<2.0) 02/26/20 07:50 Ur Leukocyte Esterase Lg (Negative) 02/26/20 07:50 Urine WBC (Auto) > 182.0 /HPF (0.0-6.0) H 02/26/20 07:50 Urine RBC (Auto) 84.0 /HPF (0.0-6.0) 02/26/20 07:50 U Epithel Cells (Auto) 2.0 /HPF (0-13.0) 12/31/19 18:04 Urine Bacteria (Auto) 4+ /HPF (Negative) 02/26/20 07:50 Urine WBC Clumps 2+ /HPF 02/26/20 07:50 Urine Mucus 1+ /HPF 02/26/20 07:50 Urine Creatinine 57.4 mg/dL (0.1-20.0) H 01/31/20 Unknown Urine Sodium 59 mmol/L 01/31/20 Unknown Vancomycin Trough 14.2 ug/mL (5.0-20.0) 12/13/19 15:01 Coronavirus (PCR) Negative (Negative) 12/29/19 10:07 Hepatitis A IgM Ab Non-reactive (NonReactive) 02/05/20 06:37 Hep Bs Antigen Non-reactive (Negative) 02/05/20 06:37 Hep B Core IgM Ab Non-reactive (NonReactive) 02/05/20 06:37 Hepatitis C Antibody Non-reactive (NonReactive) 02/05/20 06:37 Blood Type O POSITIVE 01/21/20 13:00 Antibody Screen Negative 01/21/20 13:00 - Diagnostic Impressions Diagnostic Impressions: Echocardiogram 11/29/19 07:37 Transthoracic Echocardiogram Indication: CHF BP: 116/72 HR: 33 Conclusions *The study is technically limited due to poor acoustic windows. *Global left ventricular systolic function is normal. *The estimated ejection fraction is 50-55%. *Mild concentric left ventricular hypertrophy is observed. *There is trace of mitral regurgitation. *There is mild tricuspid regurgitation. Findings Procedure Info: The study quality is poor. The study is technically limited due to poor acoustic windows. The study is technically limited due to patient body habitus. Left Ventricle: The left ventricular chamber size is normal. Mild concentric left ventricular hypertrophy is observed. Global left ventricular systolic function is normal. The estimated ejection fraction is 50-55%. Left Atrium: The left atrial chamber size is normal. Right Ventricle: The right ventricular cavity size is normal. Right Atrium: The right atrial cavity size is normal. Aortic Valve: The aortic valve leaflets are moderately thickened. There is trace of aortic regurgitation. There is no evidence of aortic stenosis. Mitral Valve: The mitral valve leaflets are mildly thickened. There is trace of mitral regurgitation. There is no evidence of mitral stenosis. Tricuspid Valve: There is mild tricuspid regurgitation. No pulmonary hypertension is noted. Pulmonic Valve: There is trace pulmonic regurgitation. Pericardium: There is no pericardial effusion. Aorta: There is no dilatation of the aortic root. Venous: The inferior vena cava appears normal in size. Contrast: Definity was used to optimize study. Intravenous contrast was used to enhance endocardial border definition. Measurements Chambers 2D Name Value Normal Range Ao root diameter (2D) 3.4 cm (2 - 3.7) Aortic Valve Name Value Normal Range AV Vmax 0.98 m/sec - AV VTI 16.76 cm - AV peak gradient 3.83 mmHg - AV mean gradient 2.57 mmHg - LVOT diameter 3.11 cm - LVOT Vmax 0.68 m/sec - LVOT VTI 11.52 cm - LVOT peak gradient 1.84 mmHg - LVOT mean gradient 1.27 mmHg - SV LVOT 87.31 ml - MALOU (continuity Vmax) 5.24 cm2 - MALOU (continuity VTI) 5.21 cm2 - Tricuspid Valve Name Value Normal Range IVC diameter 2.24 cm (1.2 - 2.3) Hoffman/IV: Voiding Method Indwelling Catheter IV Catheter Type [Left INT / Saline Lock Antecubital] IV Catheter Type [Right INT / Saline Lock Forearm] IV Catheter Type [Right Hand] Peripheral IV IV Catheter Type [Right Upper INT / Saline Lock arm] IV Catheter Type [Left Upper Mid-line arm] IV Catheter Type [Left Forearm Peripheral IV ] IV Catheter Type [Left Hand] Peripheral IV IV Catheter Type [Left Wrist] INT / Saline Lock IV Catheter Type [Right Peripheral IV Antecubital] Active Medications - Current Medications Current Medications: Generic Name Dose Route Start Last Admin Trade Name Tisha PRN Reason Stop Dose Admin Lipase/Protease/Amylase 1 each 01/09/20 12:01 Nadir Betancourt 10,500 Unit FEEDTUBE PRN PRN For Clogged Feeding Tube Apixaban 5 mg 01/22/20 22:00 03/01/20 11:08 Eliquis PO 5 mg Q12HR CAR Administration Protocol Atorvastatin Calcium 40 mg 01/20/20 22:00 02/29/20 22:03 Lipitor PO 40 mg QHS CAR Administration Clopidogrel Bisulfate 75 mg 01/21/20 06:00 03/01/20 11:08 Plavix PO 75 mg QDAY CAR Administration Dextrose 50 ml 01/31/20 18:51 02/05/20 00:56 D50w (25gm) Syringe IV 50 ml Q30MIN PRN Administration Hypoglycemia Protocol Digoxin 0.125 mg 02/25/20 17:00 02/29/20 16:17 Lanoxin PO 0.125 mg DAILY@1700 CAR Administration Docusate Sodium 100 mg 02/22/20 10:00 03/01/20 11:08 Colace FEEDTUBE 100 mg BID CAR Administration Glycopyrrolate 2 mg 02/24/20 21:00 02/29/20 22:01 Glycopyrrolate PO 2 mg TID CAR Administration Haloperidol Lactate 5 mg 02/10/20 14:20 02/29/20 12:17 Haldol IV 5 mg Q6H PRN Administration Agitation Hydrophilic Ointment 1 applic 01/17/20 15:26 02/24/20 23:20 Vaseline Lip Therapy TP 1 applic DIRECT PRN Administration Dry Lips Insulin Human Regular 0 unit 02/01/20 18:00 02/29/20 17:20 Humulin R SUB-Q 1 unit Q6H CAR Administration Protocol Lansoprazole 30 mg 02/05/20 16:00 03/01/20 11:07 Prevacid Solutab FEEDTUBE 30 mg QDAY CAR Administration Metoprolol Tartrate 5 mg 01/11/20 08:00 02/16/20 22:00 Metoprolol IV 5 mg Q6H PRN Administration SEE INSTRUCTIONS Metoprolol Tartrate 12.5 mg 02/28/20 12:00 03/01/20 11:07 Metoprolol FEEDTUBE 12.5 mg BID CAR Administration Midodrine 15 mg 02/04/20 16:00 03/01/20 11:07 Proamatine PO 15 mg TID@0800,1200,1600 CAR Administration Morphine Sulfate 2 mg 01/06/20 15:41 02/29/20 12:31 Morphine IV 2 mg Q4H PRN Administration Pain, Moderate (4-6) Multi-Ingred Cream/Lotion/Oil/Oint 1 applic 02/01/20 15:52 Artificial Tears Ophth Oint OU Q4HR PRN Dry Eye(s) Nitroglycerin 0.4 mg 01/19/20 21:09 01/20/20 03:03 Nitrostat SL 0.4 mg .Q5MIN PRN Administration Chest Pain Ondansetron HCl 4 mg 01/05/20 14:37 02/29/20 12:39 Zofran IV 4 mg Q8H PRN Administration Nausea And Vomiting Polyethylene Glycol 17 gm 12/04/19 22:00 02/29/20 21:59 Miralax 3350 PO 17 gm QHS CAR Administration Quetiapine Fumarate 300 mg 01/13/20 22:00 03/01/20 11:07 Seroquel PO 300 mg BID CAR Administration Scopolamine 1 each 01/07/20 20:00 01/07/20 21:08 Transderm-Scop TD 1 each Q72HR CAR Administration Simple Syrup 15 ml 01/09/20 12:01 Simple Syrup FEEDTUBE PRN PRN Hypoglycemia Simple Syrup 30 ml 01/09/20 12:01 Simple Syrup FEEDTUBE PRN PRN Hypoglycemia Sodium Bicarbonate 325 mg 01/09/20 12:01 Sodium Bicarbonate FEEDTUBE PRN PRN For Clogged Feeding Tube Sodium Chloride 10 ml 11/24/19 10:00 03/01/20 11:09 Sodium Chloride Flush Syringe 10 Ml IV 10 ml BID CAR Administration Tamsulosin HCl 0.8 mg 12/20/19 22:00 02/29/20 22:02 Flomax PO 0.8 mg QHS CAR Administration Nutrition/Malnutrition Assess - Dietary Evaluation Nutrition/Malnutrition Findings: Nutrition Notes Start: 11/24/19 12:22 Freq: Status: Active Protocol: Document 02/29/20 14:15 LEONA (Rec: 02/29/20 14:21 LEONA [id number]) Nutrition Notes Initial or Follow up Reassessment Current Diagnosis Coronary Artery Disease,Heart Failure,Respiratory Failure, Stroke,Hyperlipidemia Other Pertinent Diagnosis Partial SBO, pneu Current Diet Vital AF 1.2 at 75ml/hr Labs/Tests No new labs Pertinent Medications Zofran Height 6 ft 2 in Weight 119 kg [place] Body Weight (kg) 86.36 BMI 33.7 Weight Status Obese Subjective/Other Information FU for tolerance. Pt reports TF causing nausea. Vital AF promotes GI tolerance but will change formulas and follow for tolerance. Pt weight has increased since admission but appears to be losing weight. Pt has hx of high Na. Per chart, pt has dark kathryn colored urine. Percent of energy/protein needs met: 100%/100% Burn Absent Trauma Absent GI Symptoms None Current % PO Negligible Minimum of two criteria Yes Muscle Mass Mild Depletion (non-severe) Fluid Accumulation Mild (non-severe) Reduced [employer] Seasonal Strength Measurably Reduced (severe) #2 Nutrition Diagnosis Malnutrition Diagnosis Progress(for reassessment Continues documentation) #1 Nutrition Diagnosis Inadequate oral intake Diagnosis Progress(for reassessment Continues documentation) Is patient on ventilator? Yes Is Patient Ambulatory and/or Out of Bed No REE-([facility]-confined to bed) 2470.320 Calculation Used for Recommendations [facility] Additional Notes Protein needs are 173g ( greater than 2g/kg IBW) Fluid needs are 1 ml/kcal Nutrition Intervention Change Diet Order: Continue TF via PEG Nutrition Support: Osmolite 1.5 at 65 ml/hr. Flush 200 ml q4h. Kcal 2,340 Protein (gm) 98 Fluid (mL) 1,189 Goal #1 Meet at least 75% of pt's energy and protein needs Goal #2 Weight maintenance Anticipated Discharge Needs: unable to determine at this time Follow-Up By: 03/02/20 Additional Comments FU for new TF tolarance, Na labs
[2020-03-01] MEDS: DIGOXIN 0.125 MG TAB PO SCH (18:17)
[2020-03-01] MEDS: TAMSULOSIN 0.4 MG CAP PO SCH (22:05)
[2020-03-01] MEDS: POLYETHYLENE GLYCOL 3350 17 GM POWDER PO SCH (22:07)
[2020-03-02] MEDS: INSULIN REGULAR, HUMAN 100 UNIT/ML 3ML VIAL SUB-Q SCH ×6 (05:48→19:49)
[2020-03-02] MEDS: QUEtiapine 100 MG TAB PO SCH ×2 (09:05→21:21)
[2020-03-02] MEDS: DOCUSATE SODIUM 100 MG/10 ML ORAL LIQD FEEDTUBE SCH ×2 (09:06→21:17)
[2020-03-02] MEDS: GLYCOPYRROLATE 2 MG TAB PO SCH ×3 (09:06→21:17)
[2020-03-02] MEDS: LANSOPRAZOLE 30 MG SOLUTAB FEEDTUBE SCH (09:06)
[2020-03-02] MEDS: APIXABAN 5 MG TAB PO SCH ×2 (09:06→21:17)
[2020-03-02] MEDS: CLOPIDOGREL 75 MG TAB PO SCH (09:06)
[2020-03-02] MEDS: MIDODRINE 5 MG TAB PO SCH ×3 (09:06→16:12)
--- NOTE | 2020-03-02 09:33 | Progress Note ---
Assessment and Plan Assessment and plan: --Ischemic cardiomyopathy Cardiology is following, status post cardiac catheterization on 01/22/2020; Cor onary artery disease status post PCI and stent to the LAD Continue current cardiac medications --Acute on chronic hypoxemic respiratory failure; Patient has tracheostomy on vent Continue nebulizers, , trach care Wean off ventilator as tolerated Pulmonary critical following --Acute exacerbation of COPD; Patient is currently on ventilatory support Continue nebulizers --Left lower lobe PE; Continue Eliquis, ventilatory support --Acute right lower extremity DVT; Patient is on Eliquis --Bilateral multifocal pneumonia/community-acquired Completed antibiotics, improved --Severe sepsis/bilateral pneumonia: Completed antibiotics COVID-19 test; 11/24/2019; negative 11/26/2019; negative 12/29/2019: Negative --Paroxysmal atrial fibrillation; Now rate controlled, Stable on amiodarone and Eliquis --Acute on chronic combined systolic and diastolic congestive heart failure Ischemic cardiomyopathy left ventricular ejection fraction 40 to 45% --H/o CAD [[facility] 12/2018 in-stent restenosis] Patient is stable on current cardiac medications --Hypertensive emergency; present on admission Reasonable blood pressures, continue current antihypertensives As needed medications --History of alcohol abuse/alcohol withdrawal; Was on CIWA protocol, now stable --Oropharyngeal dysphagia; status post PEG placement Continue PEG feeds per protocol --History of partial small bowel obstruction; resolved --Obesity; BMI 34.7 Patient needs weight reduction when medically stable --Severe protein calorie malnutrition/hypoalbuminemia Nutrition supplements, dietitian following, PEG feeds --DVT prophylaxis;Eliquis --Full CODE STATUS Discharge planning 01/05; Pt stable. NGT output 650cc over 24 hours, bilious. No f/c, WBC within normal limits. cont NG suction and cont to hold TF 01/06: Abs series - mild improvement in small bowel distension in mid abdomen, normal gas/stool pattern in colon. NGT in duodenum. Continue to hold tube feeding, maintain NG tube with low intermittent suction. Patient's was updated by phone. Continue to provide supportive care and monitor clinically. 01/07: +BMs today and NGT/PEG output appears more gastric today. Plan to clamp NGT, if tolerates start TF from tomorrow. cont supportive care. 01/08; Gastric output decreased over last 24 hours. NGT has been clamped x 24 hours. plan to dc NGT and to start TTF via PEG - vital HF @10cc/hr 01/09: clinically stable, tolerating TF. monitor BMP, wean off from vent as tolerated clinically stable, on TF. wean off vent as tolerated 01/11: wean off from vent, cont to monitor, on TF 01/12: wean off from vent, cont to monitor, on TF. need placement - unfunded 01/13; remains on ventilatory support, unable to wean, DC planning possible LTAC, unfunded 01/14; patient of ventilatory support, T-piece tracheostomy on oxygen, LTAC placement per case management 01/16; tracheostomy, patient on full ventilatory support, wean off vent support as tolerated, pending LTAC placement, social financial issues 01/17; awaiting LTAC placement, insurance and financial issues 01/18; patient tracheostomy remains on ventilatory support 01/19; wean off ventilator as tolerated 01/20; remains on ventilatory support, patient complains of intermittent chest pain, cardiology recommend left heart catheterization tomorrow 01/22/2020. Patient for left heart catheterization per cardiology. Patient remains on AC mode ventilation rate 12, tidal volume 450, FiO2 30% and PEEP of 6. Continue tracheostomy care, airway management and secretion control. 01/23/2020. Cardiac catheterization completed yesterday revealed widely patent previous LAD stent with mild nonobstructive atherosclerosis of the right mid coronary artery and rest of the coronary system was without significant atherosclerosis. The left ventricle ejection fraction was mildly impaired at 40 to 45%. There was some hypokinesis of the basal inferior wall suggestive of previous or recent infarct. Continue GDMT for coronary artery disease including beta blockers, topical nitrates, statin and Plavix. Continue Eliquis for paroxysmal atrial fibrillation and PE. Continue diuresis with Lasix and follow electrolytes closely. Continue Robinul and scopolamine for secretion control and daily SBT per pulmonary. Also, continue bronchodilators and routine trach care/airway management. T-piece trials per pulmonary as tolerated. 01/24/2020. Recent cardiac catheterization has documented widely patent left anterior descending artery stent with minimal nonobstructive diffuse coronary artery disease in the rest of the coronary arteries. Evidence of ischemic cardiomyopathy with inferior wall hypokinesis. Continue with guideline directed medical therapy. Continue Robinul and scopolamine for secretion control and daily SBT per pulmonary. Continue bronchodilators and routine trach care/airway management. T-piece trials per pulmonary as tolerated. 01/25/2020. Continue with guideline directed medical therapy for systolic heart failure. Cardiac catheterization revealed evidence of ischemic cardiomyopathy with inferior wall hypokinesis (EF 40-45%). Patient currently on T-piece with oxygen 10 L/min FiO2 40%. Continue Robinul and scopolamine for secretion c ontrol. Continue bronchodilators and routine trach care/airway management. 02/03: Mental status more improved, agree with Reglan will change to IV scheduled for two days, no new vomiting. Pseudomonas A in Sputum. 02/04: Clinical improving, amiodarone discontinued due to LFTs, continue Metoprolol.d/w GI, started on Golytely to clear impaction. Started on dialy Miralax. 02/05: Continue supportive care. Noted bowel movement, continue bowel regimen 02/06: Cardiology input noted beta-hebert increased for better suppression of atrial fibrillation. Continue to monitor, no other evidence of nausea vomiting noted. Discussed with respiratory therapist will be continued on weaning protocol with pressure support today. 02/07: Patient successfully weaned off the ventilator, No new complaints, co ntinue monitoring, BM noted, Discussed with pulmonary, 02/08; tracheostomy on T-piece, patient is more alert and awake today 02/09; clinically no change, tracheostomy on vent 02/10; tracheostomy on vent, full CODE STATUS, poor prognosis, 02/11; clinically no change, remains on ventilatory support, full CODE STATUS, discussed with spouse Ms. Paulette Araiza extensively today 02/12. Patient resting comfortably no change on vent with tracheostomy. Still unable to wean. Some increased crackles today. 02/13: Still unable to wean from the vent. Overall prognosis remains extremely poor. 02/14; remains critically ill, tracheostomy on vent, unable to wean, poor prognosis, full CODE STATUS 02/15; patient is more alert and awake today, chronic tracheostomy on T-piece, continue current management DC planning per case management. Disposition very difficult due to lack of resources and insurance 02/17/2020. Patient remains on mechanical ventilation and tolerating PSV trials. Patient currently with PSV 10/6 at FiO2 of 30%. 02/18/2020. Patient currently on PSV 10/6 with FiO2 of 40%. 40% T-piece trial was attempted but patient unable to tolerate due to saturations dropping into the 80s and heart rate in the 140s. Therefore, patient placed back on PSV. Continue anticoagulation with Eliquis. Continue secretion control with Robinul and scopolamine. Continue rate control with metoprolol and digoxin. 02/19/2020. Patient currently on PSV 10/6 with FiO2 of 30%. T-piece trial attempted yesterday but patient did not tolerate. Continue T-piece trials as tolerated. Continue anticoagulation with Eliquis. Continue secretion control with Robinul and scopolamine. Continue rate control with metoprolol and digoxin. Continue to follow with case management with regards to discharge kyrie nning. 02/20/2020. Patient continues to tolerate PSV 10/6. Continue rate control with metoprolol and digoxin. Amiodarone discontinued due to elevated liver transaminases. Eliquis for anticoagulation acute PE/DVT. 02/21/2020. Patient continues to tolerate PSV 10/6 at FiO2 of 30%. Continue rate control with metoprolol and digoxin. Amiodarone discontinued due to elevated liver transaminases. Eliquis for anticoagulation acute PE/DVT. 02/22/2020. Patient continues to tolerate PSV 10/6 at FiO2 of 30%. Continue rate control with metoprolol and digoxin. Amiodarone discontinued due to kasia vated liver transaminases. Eliquis for anticoagulation acute PE/DVT. 02/22. Awake and alert on vent. Vitals stable. 02/23. Awake and alert on vent. Requests for ice. Vitals stable 02/24. Trach to vent. Continue rate control with metoprolol and digoxin. Amiodarone discontinued due to elevated liver transaminases. Eliquis for anticoagulation of acute PE/DVT. Transferred to [facility] 02/25. Seen in [facility]. Requests for ice. RN to provide a cube of ice. Vitals stable. 02/26. No change in medical condition. Slightly tachy this AM. Will monitor. 02/27. Cardiology started him on a beta hebert. Still on vent 02/28. Discharge planning as per collaborating supervising physician. Still on vent. Tachycardia noted. 03/01/2020; patient is tachycardic, still on the vent. Discharge management as per collaborating supervising physician. 03/02/2020; patient is on a vent and trach. Discharge is per collaborating supervising physician. The high probability of a clinically significant, sudden or life threatening deterioration of the [Respiratory, cardiovascular & neurological] system(s) required my full and direct attention, intervention and personal management. The aggregate critical care time was [32] minutes without overlap. Time includes spent on [x] Data Review and interpretation [x] Patient assessment and monitoring of vital signs [x] Documentation [x] Medication orders and management History Interval history: Patient was seen and evaluated this morning Patient trach and intubated Hospitalist Physical - Physical exam Narrative exam: Patient is on trach Patient is obese Vital signs as documented. Head exam is unremarkable. No scleral icterus . Neck is without jugular venous distension, thyromegaly, or carotid bruits. Lungs intubated and on mechanical ventilator Cardiac exam reveals regular rate and Rhythm. Abdominal exam reveals normal bowel sounds, nontender, no organomegaly. Extremities are nonedematous and both femoral and pedal pulses are normal. [employer]: Patient was alert but is not able to talk because of the trach. - Constitutional Vitals: Temp Pulse Resp BP Pulse Ox 98.6 F 124 H 26 H 114/81 98 03/02/20 04:00 03/02/20 07:59 03/02/20 06:01 03/02/20 07:59 03/02/20 08:00 General appearance: Present: no acute distress, well-nourished, obese, other (Tracheostomy responds to simple questions appropriately) HEART Score - HEART Score Troponin: Troponin T < 0.010 ng/mL (0.00-0.029) 01/19/20 01:35 Results - Labs CBC & Chem 7: 02/22/20 08:06 02/22/20 08:06 Labs: Laboratory Last Values WBC 9.2 K/mm3 (4.5-11.0) 02/22/20 08:06 RBC 4.42 M/mm3 (3.65-5.03) 02/22/20 08:06 Hgb 10.8 gm/dl (11.8-15.2) L 02/22/20 08:06 Hct 35.2 % (35.5-45.6) L 02/22/20 08:06 MCV 80 fl (84-94) L 02/22/20 08:06 MCH 25 pg (28-32) L 02/22/20 08:06 MCHC 31 % (32-34) L 02/22/20 08:06 RDW 21.8 % (13.2-15.2) H 02/22/20 08:06 Plt Count 216 K/mm3 (140-440) 02/22/20 08:06 Lymph % (Auto) 19.0 % (13.4-35.0) 02/22/20 08:06 [place] % (Auto) 6.5 % (0.0-7.3) 02/22/20 08:06 Eos % (Auto) 2.1 % (0.0-4.3) 02/22/20 08:06 Baso % (Auto) 0.9 % (0.0-1.8) 02/22/20 08:06 Lymph # (Auto) 1.8 K/mm3 (1.2-5.4) 02/22/20 08:06 [place] # (Auto) 0.6 K/mm3 (0.0-0.8) 02/22/20 08:06 Eos # (Auto) 0.2 K/mm3 (0.0-0.4) 02/22/20 08:06 Baso # (Auto) 0.1 K/mm3 (0.0-0.1) 02/22/20 08:06 Add Manual Diff Complete 02/15/20 06:59 Total Counted 100 02/15/20 06:59 Seg Neutrophils % 71.5 % (40.0-70.0) H 02/22/20 08:06 Seg Neuts % (Manual) 58.0 % (40.0-70.0) 02/15/20 06:59 Band Neutrophils % 0 % 02/15/20 06:59 Lymphocytes % (Manual) 34.0 % (13.4-35.0) 02/15/20 06:59 Reactive Lymphs % (Man) 1.0 % 02/15/20 06:59 Monocytes % (Manual) 4.0 % (0.0-7.3) 02/15/20 06:59 Eosinophils % (Manual) 0 % (0.0-4.3) 02/15/20 06:59 Basophils % (Manual) 2.0 % (0.0-1.8) H 02/15/20 06:59 Metamyelocytes % 1.0 % 02/15/20 06:59 Myelocytes % 0 % 02/15/20 06:59 Promyelocytes % 0 % 02/15/20 06:59 Blast Cells % 0 % 02/15/20 06:59 Nucleated RBC % 1.0 % (0.0-0.9) H 02/15/20 06:59 Seg Neutrophils # 6.6 K/mm3 (1.8-7.7) 02/22/20 08:06 Seg Neutrophils # Man 5.9 K/mm3 (1.8-7.7) 02/15/20 06:59 Band Neutrophils # 0.0 K/mm3 02/15/20 06:59 Lymphocytes # (Manual) 3.5 K/mm3 (1.2-5.4) 02/15/20 06:59 Abs React Lymphs (Man) 0.1 K/mm3 02/15/20 06:59 Monocytes # (Manual) 0.4 K/mm3 (0.0-0.8) 02/15/20 06:59 Eosinophils # (Manual) 0.0 K/mm3 (0.0-0.4) 02/15/20 06:59 Basophils # (Manual) 0.2 K/mm3 (0.0-0.1) H 02/15/20 06:59 Metamyelocytes # 0.1 K/mm3 02/15/20 06:59 Myelocytes # 0.0 K/mm3 02/15/20 06:59 Promyelocytes # 0.0 K/mm3 02/15/20 06:59 Blast Cells # 0.0 K/mm3 02/15/20 06:59 WBC Morphology Not Reportable 02/15/20 06:59 Hypersegmented Neuts Not Reportable 02/15/20 06:59 Hyposegmented Neuts Not Reportable 02/15/20 06:59 Hypogranular Neuts Not Reportable 02/15/20 06:59 Smudge Cells Not Reportable 02/15/20 06:59 Toxic Granulation Not Reportable 02/15/20 06:59 Toxic Vacuolation Not Reportable 02/15/20 06:59 Dohle Bodies Not Reportable 02/15/20 06:59 Pelger-Huet Anomaly Not Reportable 02/15/20 06:59 Hector Rods Not Reportable 02/15/20 06:59 Platelet Estimate Consistent w auto 02/15/20 06:59 Clumped Platelets Not Reportable 02/15/20 06:59 Plt Clumps, EDTA Not Reportable 02/15/20 06:59 Large Platelets Not Reportable 02/15/20 06:59 Giant Platelets Not Reportable 02/15/20 06:59 Platelet Satelliting Not Reportable 02/15/20 06:59 Plt Morphology Comment Giant platelets 02/15/20 06:59 RBC Morphology Not Reportable 02/15/20 06:59 Dimorphic RBCs Not Reportable 02/15/20 06:59 Polychromasia Not Reportable 02/15/20 06:59 Hypochromasia 1+ 02/15/20 06:59 Poikilocytosis Few 02/15/20 06:59 Anisocytosis 1+ 02/15/20 06:59 Microcytosis Not Reportable 02/15/20 06:59 Macrocytosis Not Reportable 02/15/20 06:59 Spherocytes Not Reportable 02/15/20 06:59 Pappenheimer Bodies Not Reportable 02/15/20 06:59 Sickle Cells Not Reportable 02/15/20 06:59 Target Cells 1+ 02/15/20 06:59 Tear Drop Cells Few 02/15/20 06:59 Ovalocytes Not Reportable 02/15/20 06:59 Helmet Cells Not Reportable 02/15/20 06:59 Gottlieb-[place] Bodies Not Reportable 02/15/20 06:59 [place] Rings Not Reportable 02/15/20 06:59 [place] Cells Not Reportable 02/15/20 06:59 Bite Cells Not Reportable 02/15/20 06:59 Crenated Cell Not Reportable 02/15/20 06:59 Elliptocytes Few 02/15/20 06:59 Acanthocytes (Spur) Not Reportable 02/15/20 06:59 Rouleaux Not Reportable 02/15/20 06:59 Hemoglobin C Crystals Not Reportable 02/15/20 06:59 Schistocytes Not Reportable 02/15/20 06:59 Malaria parasites Not Reportable 02/15/20 06:59 Clifford Bodies Not Reportable 02/15/20 06:59 Hem Pathologist Commnt No 02/15/20 06:59 PT 27.0 Sec. (12.2-14.9) H 02/07/20 15:03 INR 2.46 (0.87-1.13) H 02/07/20 15:03 APTT 31.5 Sec. (24.2-36.6) 01/22/20 09:58 Heparin Anti-Xa Level 1.34 U.I./ml (0.3-0.7) H 01/22/20 04:45 ABG pH 7.461 pH Units (7.350-7.450) H 02/20/20 06:45 POC ABG pCO2 34.8 mmHg (32.0-48.0) 02/11/20 14:11 ABG pCO2 47.8 mm Hg 02/20/20 06:45 POC ABG pO2 77.7 mmHg (83-108) L 02/11/20 14:11 ABG pO2 88.7 mm Hg (80.0-90.0) 02/20/20 06:45 POC ABG HCO3 26.7 02/11/20 14:11 ABG HCO3 33.3 mmol/L (20.0-26.0) H 02/20/20 06:45 ABG O2 Saturation 97.2 % (95.0-99.0) 02/20/20 06:45 ABG O2 Content 13.3 (0.0-44) 02/20/20 06:45 POC ABG Base Excess 3.6 02/11/20 14:11 ABG Base Excess 8.4 mmol/L (-2.0-3.0) H 02/20/20 06:45 ABG Hemoglobin 10.0 gm/dl (14.0-18.0) L 02/20/20 06:45 ABG Oxyhemoglobin 84 (94-98) L 12/22/19 03:22 ABG Carboxyhemoglobin 2.9 % (0.0-5.0) 02/20/20 06:45 ABG Methemoglobin 0.4 % (0.0-1.5) 02/20/20 06:45 ABG Sodium 144.7 mmol/L (136.0-145.0) 02/11/20 14:11 ABG Potassium 3.5 mmol/L (3.40-4.50) 02/11/20 14:11 ABG Chloride 108.0 mmol/L (98-107) H 02/11/20 14:11 ABG Glucose 151 mg/dL (65-95) H 02/11/20 14:11 Oxyhemoglobin 94.1 % (95.0-99.0) L 02/20/20 06:45 Carboxyhemoglobin 0.7 (0.5-1.5) 12/22/19 03:22 FiO2 30 % 02/20/20 06:45 Sodium 146 mmol/L (137-145) H 02/22/20 08:06 Potassium 3.7 mmol/L (3.6-5.0) 02/22/20 08:06 Chloride 106.1 mmol/L (98-107) 02/22/20 08:06 Carbon Dioxide 34 mmol/L (22-30) H 02/22/20 08:06 Anion Gap 10 mmol/L 02/22/20 08:06 BUN 21 mg/dL (9-20) H 02/22/20 08:06 Creatinine 0.4 mg/dL (0.8-1.3) L 02/22/20 08:06 Estimated GFR > 60 ml/min 02/22/20 08:06 BUN/Creatinine Ratio 53 % 02/22/20 08:06 Glucose 149 mg/dL (75-100) H 02/22/20 08:06 POC Glucose 176 mg/dL (70-105) H 03/02/20 05:12 Lactic Acid 1.60 mmol/L (0.7-2.0) 02/03/20 12:49 Calcium 9.5 mg/dL (8.4-10.2) 02/22/20 08:06 Ferritin 84.4 ng/mL (30.0-300.0) 11/24/19 04:53 Phosphorus 4.10 mg/dL (2.5-4.5) 01/31/20 19:24 Magnesium 2.40 mg/dL (1.7-2.3) H 02/10/20 07:40 Total Bilirubin 1.30 mg/dL (0.1-1.2) H 02/08/20 19:00 Direct Bilirubin 0.9 mg/dL (0-0.2) H 02/08/20 19:00 Indirect Bilirubin 0.4 mg/dL 02/08/20 19:00 Total Creatine Kinase 141 units/L (55-170) 11/24/19 02:53 CK-MB (CK-2) 4.3 ng/mL (0.0-4.0) H 11/24/19 02:53 AST 309 units/L (5-40) H 02/08/20 19:00 ALT 650 units/L (7-56) H 02/08/20 19:00 CK-MB (CK-2) Rel Index 3.0 (0-4) 11/24/19 02:53 Alkaline Phosphatase 109 units/L (35-129) 02/08/20 19:00 C-Reactive Protein 8.50 mg/dL (0.00-1.30) H 12/01/19 12:16 Ammonia 35.0 umol/L (25-60) 02/03/20 12:49 Lactate Dehydrogenase 228 units/L (91-180) H 12/19/19 04:45 Troponin T < 0.010 ng/mL (0.00-0.029) 01/19/20 01:35 NT-Pro-B Natriuret Pep 3866 pg/mL (0-900) H 01/01/20 10:40 Total Protein 6.2 g/dL (6.3-8.2) L 02/08/20 19:00 Albumin 2.7 g/dL (3.9-5) L 02/08/20 19:00 Albumin/Globulin Ratio 0.8 % 02/08/20 19:00 Procalcitonin 0.44 ng/mL (<0.15) 02/03/20 12:49 Arterial Blood Glucose 151 mg/dL (65-95) H 02/11/20 14:11 Arterial Blood Ionized Calcium 4.7 mg/dL (4.6-5.3) 02/11/20 14:11 Urine Color Kathryn (Yellow) 02/26/20 07:50 Urine Turbidity Clear (Clear) 02/26/20 07:50 Urine pH 5.0 (5.0-7.0) 02/26/20 07:50 Ur Specific [place] 1.025 (1.003-1.030) 02/26/20 07:50 Urine Protein 30 mg/dl mg/dL (Negative) 02/26/20 07:50 Urine Glucose (UA) Neg mg/dL (Negative) 02/26/20 07:50 Urine Ketones Neg mg/dL (Negative) 02/26/20 07:50 Urine Blood Sm (Negative) 02/26/20 07:50 Urine Nitrite Neg (Negative) 02/26/20 07:50 Urine Bilirubin Neg (Negative) 02/26/20 07:50 Urine Urobilinogen 4.0 mg/dL (<2.0) 02/26/20 07:50 Ur Leukocyte Esterase Lg (Negative) 02/26/20 07:50 Urine WBC (Auto) > 182.0 /HPF (0.0-6.0) H 02/26/20 07:50 Urine RBC (Auto) 84.0 /HPF (0.0-6.0) 02/26/20 07:50 U Epithel Cells (Auto) 2.0 /HPF (0-13.0) 12/31/19 18:04 Urine Bacteria (Auto) 4+ /HPF (Negative) 02/26/20 07:50 Urine WBC Clumps 2+ /HPF 02/26/20 07:50 Urine Mucus 1+ /HPF 02/26/20 07:50 Urine Creatinine 57.4 mg/dL (0.1-20.0) H 01/31/20 Unknown Urine Sodium 59 mmol/L 01/31/20 Unknown Vancomycin Trough 14.2 ug/mL (5.0-20.0) 12/13/19 15:01 Coronavirus (PCR) Negative (Negative) 12/29/19 10:07 Hepatitis A IgM Ab Non-reactive (NonReactive) 02/05/20 06:37 Hep Bs Antigen Non-reactive (Negative) 02/05/20 06:37 Hep B Core IgM Ab Non-reactive (NonReactive) 02/05/20 06:37 Hepatitis C Antibody Non-reactive (NonReactive) 02/05/20 06:37 Blood Type O POSITIVE 01/21/20 13:00 Antibody Screen Negative 01/21/20 13:00 - Diagnostic Impressions Diagnostic Impressions: Echocardiogram 11/29/19 07:37 Transthoracic Echocardiogram Indication: CHF BP: 116/72 HR: 33 Conclusions *The study is technically limited due to poor acoustic windows. *Global left ventricular systolic function is normal. *The estimated ejection fraction is 50-55%. *Mild concentric left ventricular hypertrophy is observed. *There is trace of mitral regurgitation. *There is mild tricuspid regurgitation. Findings Procedure Info: The study quality is poor. The study is technically limited due to poor acoustic windows. The study is technically limited due to patient body habitus. Left Ventricle: The left ventricular chamber size is normal. Mild concentric left ventricular hypertrophy is observed. Global left ventricular systolic function is normal. The estimated ejection fraction is 50-55%. Left Atrium: The left atrial chamber size is normal. Right Ventricle: The right ventricular cavity size is normal. Right Atrium: The right atrial cavity size is normal. Aortic Valve: The aortic valve leaflets are moderately thickened. There is trace of aortic regurgitation. There is no evidence of aortic stenosis. Mitral Valve: The mitral valve leaflets are mildly thickened. There is trace of mitral regurgitation. There is no evidence of mitral stenosis. Tricuspid Valve: There is mild tricuspid regurgitation. No pulmonary hypertension is noted. Pulmonic Valve: There is trace pulmonic regurgitation. Pericardium: There is no pericardial effusion. Aorta: There is no dilatation of the aortic root. Venous: The inferior vena cava appears normal in size. Contrast: Definity was used to optimize study. Intravenous contrast was used to enhance endocardial border definition. Measurements Chambers 2D Name Value Normal Range Ao root diameter (2D) 3.4 cm (2 - 3.7) Aortic Valve Name Value Normal Range AV Vmax 0.98 m/sec - AV VTI 16.76 cm - AV peak gradient 3.83 mmHg - AV mean gradient 2.57 mmHg - LVOT diameter 3.11 cm - LVOT Vmax 0.68 m/sec - LVOT VTI 11.52 cm - LVOT peak gradient 1.84 mmHg - LVOT mean gradient 1.27 mmHg - SV LVOT 87.31 ml - MALOU (continuity Vmax) 5.24 cm2 - MALOU (continuity VTI) 5.21 cm2 - Tricuspid Valve Name Value Normal Range IVC diameter 2.24 cm (1.2 - 2.3) Hoffman/IV: Voiding Method Indwelling Catheter IV Catheter Type [Left INT / Saline Lock Antecubital] IV Catheter Type [Right INT / Saline Lock Forearm] IV Catheter Type [Right Hand] Peripheral IV IV Catheter Type [Right Upper INT / Saline Lock arm] IV Catheter Type [Left Upper Mid-line arm] IV Catheter Type [Left Forearm Peripheral IV ] IV Catheter Type [Left Hand] Peripheral IV IV Catheter Type [Left Wrist] INT / Saline Lock IV Catheter Type [Right Peripheral IV Antecubital] Active Medications - Current Medications Current Medications: Generic Name Dose Route Start Last Admin Trade Name Freq PRN Reason Stop Dose Admin Lipase/Protease/Amylase 1 each 01/09/20 12:01 Nadir Betancourt 10,500 Unit FEEDTUBE PRN PRN For Clogged Feeding Tube Apixaban 5 mg 01/22/20 22:00 03/02/20 09:06 Eliquis PO 5 mg Q12HR CAR Administration Protocol Atorvastatin Calcium 40 mg 01/20/20 22:00 03/01/20 22:09 Lipitor PO 40 mg QHS CAR Administration Clopidogrel Bisulfate 75 mg 01/21/20 06:00 03/02/20 09:06 Plavix PO 75 mg QDAY CAR Administration Dextrose 50 ml 01/31/20 18:51 02/05/20 00:56 D50w (25gm) Syringe IV 50 ml Q30MIN PRN Administration Hypoglycemia Protocol Digoxin 0.125 mg 02/25/20 17:00 03/01/20 18:17 Lanoxin PO 0.125 mg DAILY@1700 CAR Administration Docusate Sodium 100 mg 02/22/20 10:00 03/02/20 09:06 Colace FEEDTUBE 100 mg BID CAR Administration Glycopyrrolate 2 mg 02/24/20 21:00 03/02/20 09:06 Glycopyrrolate PO 2 mg TID CAR Administration Haloperidol Lactate 5 mg 02/10/20 14:20 02/29/20 12:17 Haldol IV 5 mg Q6H PRN Administration Agitation Hydrophilic Ointment 1 applic 01/17/20 15:26 02/24/20 23:20 Vaseline Lip Therapy TP 1 applic DIRECT PRN Administration Dry Lips Insulin Human Regular 0 unit 02/01/20 18:00 03/02/20 05:53 Humulin R SUB-Q 1 unit Q6H CAR Administration Protocol Lansoprazole 30 mg 02/05/20 16:00 03/02/20 09:06 Prevacid Solutab FEEDTUBE 30 mg QDAY CAR Administration Metoprolol Tartrate 5 mg 01/11/20 08:00 02/16/20 22:00 Metoprolol IV 5 mg Q6H PRN Administration SEE INSTRUCTIONS Metoprolol Tartrate 12.5 mg 02/28/20 12:00 03/01/20 22:11 Metoprolol FEEDTUBE Not Given BID CAR Midodrine 15 mg 02/04/20 16:00 03/02/20 09:06 Proamatine PO 15 mg TID@0800,1200,1600 CAR Administration Morphine Sulfate 2 mg 01/06/20 15:41 02/29/20 12:31 Morphine IV 2 mg Q4H PRN Administration Pain, Moderate (4-6) Multi-Ingred Cream/Lotion/Oil/Oint 1 applic 02/01/20 15:52 Artificial Tears Ophth Oint OU Q4HR PRN Dry Eye(s) Nitroglycerin 0.4 mg 01/19/20 21:09 01/20/20 03:03 Nitrostat SL 0.4 mg .Q5MIN PRN Administration Chest Pain Ondansetron HCl 4 mg 01/05/20 14:37 02/29/20 12:39 Zofran IV 4 mg Q8H PRN Administration Nausea And Vomiting Polyethylene Glycol 17 gm 12/04/19 22:00 03/01/20 22:07 Miralax 3350 PO 17 gm QHS CAR Administration Quetiapine Fumarate 300 mg 01/13/20 22:00 03/02/20 09:05 Seroquel PO 300 mg BID CAR Administration Scopolamine 1 each 01/07/20 20:00 01/07/20 21:08 Transderm-Scop TD 1 each Q72HR CAR Administration Simple Syrup 15 ml 01/09/20 12:01 Simple Syrup FEEDTUBE PRN PRN Hypoglycemia Simple Syrup 30 ml 01/09/20 12:01 Simple Syrup FEEDTUBE PRN PRN Hypoglycemia Sodium Bicarbonate 325 mg 01/09/20 12:01 Sodium Bicarbonate FEEDTUBE PRN PRN For Clogged Feeding Tube Sodium Chloride 10 ml 11/24/19 10:00 03/02/20 09:06 Sodium Chloride Flush Syringe 10 Ml IV 10 ml BID CAR Administration Tamsulosin HCl 0.8 mg 12/20/19 22:00 03/01/20 22:05 Flomax PO 0.8 mg QHS CAR Administration Nutrition/Malnutrition Assess - Dietary Evaluation Nutrition/Malnutrition Findings: Nutrition Notes Start: 11/24/19 12:22 Freq: Status: Active Protocol: Document 02/29/20 14:15 LEONA (Rec: 02/29/20 14:21 [id number]) Nutrition Notes Initial or Follow up Reassessment Current Diagnosis Coronary Artery Disease,Heart Failure,Respiratory Failure, Stroke,Hyperlipidemia Other Pertinent Diagnosis Partial SBO, pneu Current Diet Vital AF 1.2 at 75ml/hr Labs/Tests No new labs Pertinent Medications Zofran Height 6 ft 2 in Weight 119 kg [place] Body Weight (kg) 86.36 BMI 33.7 Weight Status Obese Subjective/Other Information FU for tolerance. Pt reports TF causing nausea. Vital AF promotes GI tolerance but will change formulas and follow for tolerance. Pt weight has increased since admission but appears to be losing weight. Pt has hx of high Na. Per chart, pt has dark kathryn colored urine. Percent of energy/protein needs met: 100%/100% Burn Absent Trauma Absent GI Symptoms None Current % PO Negligible Minimum of two criteria Yes Muscle Mass Mild Depletion (non-severe) Fluid Accumulation Mild (non-severe) Reduced Block Engraver Strength Measurably Reduced (severe) #2 Nutrition Diagnosis Malnutrition Diagnosis Progress(for reassessment Continues documentation) #1 Nutrition Diagnosis Inadequate oral intake Diagnosis Progress(for reassessment Continues documentation) Is patient on ventilator? Yes Is Patient Ambulatory and/or Out of Bed No [facility]EE[facility] [phone] Calculation Used for Recommendations [facility] Additional Notes Protein needs are 173g ( greater than 2g/kg IBW) Fluid needs are 1 ml/kcal Nutrition Intervention Change Diet Order: Continue TF via PEG Nutrition Support: Osmolite 1.5 at 65 ml/hr. Flush 200 ml q4h. Kcal 2,340 Protein (gm) 98 Fluid (mL) 1,189 Goal #1 Meet at least 75% of pt's energy and protein needs Goal #2 Weight maintenance Anticipated Discharge Needs: unable to determine at this time Follow-Up By: 03/02/20 Additional Comments FU for new TF tolarance, Na labs
[2020-03-02] MEDS: METOPROLOL TARTRATE 25 MG TAB FEEDTUBE SCH ×2 (10:00→21:17)
[2020-03-02] MEDS: DIGOXIN 0.125 MG TAB PO SCH (16:12)
--- NOTE | 2020-03-02 18:44 | Progress Note ---
Assessment and Plan Patient admitted for acute hypoxic respiratory failure, S/P tracheostomy.Patient sleeping. Resting on assist control mechanical ventilation, rate 12,Tidal volume 450, FIO2 30%, PEEP 6 and O2 saturation running 99%. ABG FIO2 30%. ABG pH 7.461 pH Units (7.350-7.450) H 02/20/20 06:45 POC ABG pCO2 34.8 mmHg (32.0-48.0) 02/11/20 14:11 ABG pCO2 47.8 mm Hg 02/20/20 06:45 POC ABG pO2 77.7 mmHg (83-108) L 02/11/20 14:11 ABG pO2 88.7 mm Hg (80.0-90.0) 02/20/20 06:45 POC ABG HCO3 26.7 02/11/20 14:11 ABG O2 Saturation 97.2 % (95.0-99.0) 02/20/20 06:45 Patient afebrile. No leukocytosis. Chest xray done 03/01/20 reported Essentially unchanged airspace disease when compared to 02/18/2020. Patient presently not on any antibiotics. Patient is on Apixaban and prevacid. I spent critical care time of 35 minutes on this patient review the chart, obt ain history , examining the patient, review chest xray, labs, talking to the nursing staff and respiratory therapy and work out plan of treatment un this critically ill patient. - Patient Problems (1) Acute respiratory failure Current Visit: Yes Status: Acute Plan to address problem: Patient is on mechanical ventilation assist control, rate 12, tidal volume 450,, FIO2 30%, PEEP 6. Albuterol/atrovent aerosol treatments. Continue apixaban Recommend GI prophylaxis. (2) COPD exacerbation Current Visit: No Status: Acute Plan to address problem: Patient is on mechanical ventilation assist control, rate 12, tidal volume 450,, FIO2 30%, PEEP 6. Albuterol/atrovent aerosol treatments. Continue apixaban Recommend GI prophylaxis. (3) Bilateral pneumonia Current Visit: Yes Status: Acute Plan to address problem: Chest xray 03/01/20 Essentially unchanged airspace disease when compared to 02/18/2020. (4) CHF exacerbation Current Visit: Yes Status: Acute Plan to address problem: Management as per cardiology. (5) Cardiomyopathy Current Visit: Yes Status: Acute Plan to address problem: Management as per cardiology. (6) Pancreatic lesion Current Visit: Yes Status: Acute Plan to address problem: Management as per primary care. (7) Paroxysmal atrial fibrillation Current Visit: Yes Status: Acute Plan to address problem: Patient is on apixaban. Management as per cardiology. (8) CVA (cerebral vascular accident) Current Visit: No Status: Acute Qualifiers: Precerebral and cerebral artery: middle cerebral artery Laterality of affected vessel: right Plan to address problem: Management as per primary care. (9) Cocaine dependence Current Visit: No Status: Acute Plan to address problem: Management as per primary care. (10) HTN (hypertension) Current Visit: No Status: Acute Qualifiers: Hypertension type: essential hypertension Qualified Code(s): I10 - Essential (primary) hypertension Plan to address problem: Management as per primary care. (11) Nicotine dependence Current Visit: No Status: Acute Qualifiers: Nicotine product type: cigarettes Substance use status: in withdrawal Qualified Code(s): F17.213 - Nicotine dependence, cigarettes, with withdrawal Plan to address problem: Counseled to stop smoking. (12) Obesity hypoventilation syndrome Current Visit: No Status: Acute Plan to address problem: Pag[place] S/P tracheostomy and on mechanical ventilation. Subjective Date of service: 03/02/20 Principal diagnosis: Ac hypoxemic resp failure; Pneumonia; PUI COVID-19; CHF; COPD; HTN Interval history: Patient admitted for acute hypoxic respiratory failure, S/P tracheostomy.Patient sleeping. Resting on assist control mechanical ventilation, rate 12,Tidal volume 450, FIO2 30%, PEEP 6 and O2 saturation running 99%. ABG FIO2 30%. ABG pH 7.461 pH Units (7.350-7.450) H 02/20/20 06:45 POC ABG pCO2 34.8 mmHg (32.0-48.0) 02/11/20 14:11 ABG pCO2 47.8 mm Hg 02/20/20 06:45 POC ABG pO2 77.7 mmHg (83-108) L 02/11/20 14:11 ABG pO2 88.7 mm Hg (80.0-90.0) 02/20/20 06:45 POC ABG HCO3 26.7 02/11/20 14:11 ABG O2 Saturation 97.2 % (95.0-99.0) 02/20/20 06:45 Patient afebrile. No leukocytosis. Chest xray done 03/01/20 reported Essentially unchanged airspace disease when compared to 02/18/2020. Patient presently not on any antibiotics. Patient is on Apixaban and prevacid. Objective Vital Signs - 12hr 03/02/20 03/02/20 03/02/20 07:00 07:59 08:00 Temperature 98.7 F Pulse Rate 112 H 124 H 109 H Pulse Rate [ 120 H From Monitor] Respiratory 24 Rate Blood Pressure 109/79 114/81 O2 Sat by Pulse 99 95 Oximetry O2 Sat by Pulse 98 Oximetry [ Assessment] 03/02/20 03/02/20 03/02/20 08:01 09:00 10:00 Temperature Pulse Rate 126 H 122 H 115 H Pulse Rate [ From Monitor] Respiratory 24 26 H 22 Rate Blood Pressure 114/81 114/81 114/89 O2 Sat by Pulse 98 97 99 Oximetry O2 Sat by Pulse Oximetry [ Assessment] 03/02/20 03/02/20 03/02/20 11:00 11:36 12:00 Temperature 97.0 F L Pulse Rate 113 H 114 H 131 H Pulse Rate [ 108 H From Monitor] Respiratory 20 26 H Rate Blood Pressure 104/81 104/81 114/80 O2 Sat by Pulse 98 95 96 Oximetry O2 Sat by Pulse Oximetry [ Assessment] 03/02/20 03/02/20 03/02/20 13:01 14:00 15:00 Temperature Pulse Rate 125 H 112 H 141 H Pulse Rate [ From Monitor] Respiratory 24 16 24 Rate Blood Pressure 126/98 122/85 121/97 O2 Sat by Pulse 99 100 97 Oximetry O2 Sat by Pulse Oximetry [ Assessment] 03/02/20 03/02/20 03/02/20 15:08 15:52 16:00 Temperature Pulse Rate 114 H 112 H Pulse Rate [ 116 H From Monitor] Respiratory Rate Blood Pressure 104/81 O2 Sat by Pulse 97 Oximetry O2 Sat by Pulse 98 Oximetry [ Assessment] 03/02/20 03/02/20 03/02/20 16:01 16:12 17:00 Temperature Pulse Rate 136 H 123 H 129 H Pulse Rate [ From Monitor] Respiratory 24 27 H Rate Blood Pressure 120/97 120/97 110/87 O2 Sat by Pulse 99 96 Oximetry O2 Sat by Pulse Oximetry [ Assessment] 03/02/20 18:00 Temperature Pulse Rate 115 H Pulse Rate [ From Monitor] Respiratory 22 Rate Blood Pressure 118/89 O2 Sat by Pulse 97 Oximetry O2 Sat by Pulse Oximetry [ Assessment] Constitutional: no acute distress, alert, asleep, other (Patient is resting on mechanical ventilation.) Eyes: non-icteric ENT: oropharynx moist, other (+ midline tracheostomy) Neck: supple, no JVD Effort: mildly labored Ascultation: Bilateral: diminished breath sounds, rhonchi (scant), other (mild tracheal secretions ) Percussion: Bilateral: not dull Cardiovascular: irregular rhythm Gastrointestinal: normoactive bowel sounds, soft, non-tender, non-distended (protuberant), other (protuberant; PEG in place) Integumentary: normal Extremities: no cyanosis, pulses normal, no ischemia or petechiae, edema (bilateral lower) Neurologic: non-focal exam (moves extremities), pupils equal and round, other (Patient sleeping.) Psychiatric: other (Patient sleeping.) CBC and BMP: 02/22/20 08:06 02/22/20 08:06 ABG, PT/INR, D-dimer: ABG ABG pH 7.461 pH Units (7.350-7.450) H 02/20/20 06:45 POC ABG pCO2 34.8 mmHg (32.0-48.0) 02/11/20 14:11 ABG pCO2 47.8 mm Hg 02/20/20 06:45 POC ABG pO2 77.7 mmHg (83-108) L 02/11/20 14:11 ABG pO2 88.7 mm Hg (80.0-90.0) 02/20/20 06:45 POC ABG HCO3 26.7 02/11/20 14:11 ABG O2 Saturation 97.2 % (95.0-99.0) 02/20/20 06:45 PT/INR, D-dimer PT 27.0 Sec. (12.2-14.9) H 02/07/20 15:03 INR 2.46 (0.87-1.13) H 02/07/20 15:03 Abnormal lab findings: Abnormal Labs 11/24/19 11/24/19 11/24/19 02:53 02:53 03:45 WBC 14.3 H RBC Hgb Hct MCHC RDW 17.2 H MCV MCH Lymph % (Auto) [facility] % (Auto) [facility] # Eos # Lymph # (Auto) [facility] # (Auto) Eos # (Auto) Seg Neutrophils % Seg Neuts % (Manual) Baso # (Auto) Lymphocytes % (Manual) Monocytes % (Manual) Eosinophils % (Manual) Basophils % (Manual) Seg Neutrophils # Seg Neutrophils # Man 8.3 H Lymphocytes # (Manual) Monocytes # (Manual) 0.9 H Eosinophils # (Manual) Nucleated RBC % Basophils # (Manual) PT INR APTT Heparin Anti-Xa Level ABG pH 7.313 L POC ABG pO2 ABG pO2 102.8 H ABG HCO3 ABG O2 Saturation ABG Base Excess -2.9 L POC ABG pCO2 ABG Hemoglobin ABG Oxyhemoglobin ABG Chloride ABG Glucose Oxyhemoglobin 93.9 L Sodium Potassium Chloride Carbon Dioxide BUN Creatinine Glucose 195 H POC Glucose Lactic Acid Calcium Phosphorus Magnesium AST ALT Lactate Dehydrogenase Total Bilirubin Direct Bilirubin CK-MB (CK-2) 4.3 H C-Reactive Protein NT-Pro-B Natriuret Pep 1181 H Total Protein Albumin Arterial Blood Glucose Urine WBC (Auto) Urine Creatinine 11/24/19 11/24/19 11/24/19 04:53 04:53 10:37 WBC RBC Hgb Hct MCHC RDW MCV MCH Lymph % (Auto) [facility] % (Auto) [facility] # Eos # Lymph # (Auto) [facility] # (Auto) Eos # (Auto) Seg Neutrophils % Seg Neuts % (Manual) Baso # (Auto) Lymphocytes % (Manual) Monocytes % (Manual) Eosinophils % (Manual) Basophils % (Manual) Seg Neutrophils # Seg Neutrophils # Man Lymphocytes # (Manual) Monocytes # (Manual) Eosinophils # (Manual) Nucleated RBC % Basophils # (Manual) PT INR APTT Heparin Anti-Xa Level ABG pH POC ABG pO2 ABG pO2 ABG HCO3 ABG O2 Saturation ABG Base Excess POC ABG pCO2 ABG Hemoglobin ABG Oxyhemoglobin ABG Chloride ABG Glucose Oxyhemoglobin Sodium Potassium Chloride Carbon Dioxide BUN Creatinine Glucose 162 H POC Glucose Lactic Acid 2.40 H* 2.50 H* Calcium Phosphorus Magnesium AST ALT Lactate Dehydrogenase 240 H Total Bilirubin Direct Bilirubin CK-MB (CK-2) C-Reactive Protein NT-Pro-B Natriuret Pep Total Protein Albumin Arterial Blood Glucose Urine WBC (Auto) Urine Creatinine 11/24/19 11/24/19 11/24/19 12:21 14:50 19:54 WBC RBC Hgb Hct MCHC RDW MCV MCH Lymph % (Auto) [facility] % (Auto) [facility] # Eos # Lymph # (Auto) [facility] # (Auto) Eos # (Auto) Seg Neutrophils % Seg Neuts % (Manual) Baso # (Auto) Lymphocytes % (Manual) Monocytes % (Manual) Eosinophils % (Manual) Basophils % (Manual) Seg Neutrophils # Seg Neutrophils # Man Lymphocytes # (Manual) Monocytes # (Manual) Eosinophils # (Manual) Nucleated RBC % Basophils # (Manual) PT INR APTT Heparin Anti-Xa Level ABG pH POC ABG pO2 ABG pO2 ABG HCO3 ABG O2 Saturation ABG Base Excess POC ABG pCO2 ABG Hemoglobin ABG Oxyhemoglobin ABG Chloride ABG Glucose Oxyhemoglobin Sodium Potassium Chloride Carbon Dioxide BUN Creatinine Glucose POC Glucose 145 H 143 H 124 H Lactic Acid Calcium Phosphorus Magnesium AST ALT Lactate Dehydrogenase Total Bilirubin Direct Bilirubin CK-MB (CK-2) C-Reactive Protein NT-Pro-B Natriuret Pep Total Protein Albumin Arterial Blood Glucose Urine WBC (Auto) Urine Creatinine 11/25/19 11/25/19 11/25/19 00:18 03:18 05:11 WBC 13.7 H RBC Hgb Hct MCHC RDW 17.1 H MCV MCH Lymph % (Auto) 10.8 L [facility] % (Auto) 8.7 H [facility] # 1.2 H Eos # Lymph # (Auto) [facility] # (Auto) Eos # (Auto) Seg Neutrophils % 80.2 H Seg Neuts % (Manual) Baso # (Auto) Lymphocytes % (Manual) Monocytes % (Manual) Eosinophils % (Manual) Basophils % (Manual) Seg Neutrophils # 11.0 H Seg Neutrophils # Man Lymphocytes # (Manual) Monocytes # (Manual) Eosinophils # (Manual) Nucleated RBC % Basophils # (Manual) PT INR APTT Heparin Anti-Xa Level ABG pH 7.333 L POC ABG pO2 ABG pO2 61.2 L ABG HCO3 ABG O2 Saturation 90.2 L ABG Base Excess POC ABG pCO2 ABG Hemoglobin 13.7 L ABG Oxyhemoglobin ABG Chloride ABG Glucose Oxyhemoglobin 88.2 L Sodium Potassium Chloride Carbon Dioxide BUN Creatinine Glucose POC Glucose 109 H Lactic Acid Calcium Phosphorus Magnesium AST ALT Lactate Dehydrogenase Total Bilirubin Direct Bilirubin CK-MB (CK-2) C-Reactive Protein NT-Pro-B Natriuret Pep Total Protein Albumin Arterial Blood Glucose Urine WBC (Auto) Urine Creatinine 11/25/19 11/25/19 11/26/19 05:11 11:40 03:12 WBC RBC Hgb Hct MCHC RDW MCV MCH Lymph % (Auto) [facility] % (Auto) [facility] # Eos # Lymph # (Auto) [facility] # (Auto) Eos # (Auto) Seg Neutrophils % Seg Neuts % (Manual) Baso # (Auto) Lymphocytes % (Manual) Monocytes % (Manual) Eosinophils % (Manual) Basophils % (Manual) Seg Neutrophils # Seg Neutrophils # Man Lymphocytes # (Manual) Monocytes # (Manual) Eosinophils # (Manual) Nucleated RBC % Basophils # (Manual) PT INR APTT Heparin Anti-Xa Level ABG pH POC ABG pO2 ABG pO2 155.1 H ABG HCO3 27.8 H ABG O2 Saturation ABG Base Excess POC ABG pCO2 ABG Hemoglobin 12.2 L ABG Oxyhemoglobin ABG Chloride ABG Glucose Oxyhemoglobin Sodium Potassium Chloride Carbon Dioxide BUN 23 H Creatinine Glucose 110 H POC Glucose 108 H Lactic Acid Calcium Phosphorus Magnesium AST ALT Lactate Dehydrogenase Total Bilirubin Direct Bilirubin CK-MB (CK-2) C-Reactive Protein NT-Pro-B Natriuret Pep Total Protein Albumin Arterial Blood Glucose Urine WBC (Auto) Urine Creatinine 11/26/19 11/26/19 11/26/19 06:17 10:43 10:43 WBC 11.4 H RBC Hgb Hct MCHC RDW 17.1 H MCV MCH Lymph % (Auto) [facility] % (Auto) [facility] # Eos # Lymph # (Auto) [facility] # (Auto) Eos # (Auto) Seg Neutrophils % Seg Neuts % (Manual) Baso # (Auto) Lymphocytes % (Manual) Monocytes % (Manual) Eosinophils % (Manual) Basophils % (Manual) Seg Neutrophils # Seg Neutrophils # Man Lymphocytes # (Manual) Monocytes # (Manual) Eosinophils # (Manual) Nucleated RBC % Basophils # (Manual) PT INR APTT Heparin Anti-Xa Level ABG pH POC ABG pO2 ABG pO2 ABG HCO3 ABG O2 Saturation ABG Base Excess POC ABG pCO2 ABG Hemoglobin ABG Oxyhemoglobin ABG Chloride ABG Glucose Oxyhemoglobin Sodium Potassium Chloride Carbon Dioxide BUN 29 H Creatinine Glucose POC Glucose 107 H Lactic Acid Calcium Phosphorus Magnesium AST ALT Lactate Dehydrogenase Total Bilirubin Direct Bilirubin CK-MB (CK-2) C-Reactive Protein NT-Pro-B Natriuret Pep Total Protein Albumin Arterial Blood Glucose Urine WBC (Auto) Urine Creatinine 11/26/19 11/27/19 11/27/19 17:11 01:53 04:11 WBC RBC Hgb Hct MCHC RDW MCV MCH Lymph % (Auto) [facility] % (Auto) [facility] # Eos # Lymph # (Auto) [facility] # (Auto) Eos # (Auto) Seg Neutrophils % Seg Neuts % (Manual) Baso # (Auto) Lymphocytes % (Manual) Monocytes % (Manual) Eosinophils % (Manual) Basophils % (Manual) Seg Neutrophils # Seg Neutrophils # Man Lymphocytes # (Manual) Monocytes # (Manual) Eosinophils # (Manual) Nucleated RBC % Basophils # (Manual) PT INR APTT Heparin Anti-Xa Level ABG pH POC ABG pO2 ABG pO2 ABG HCO3 29.2 H ABG O2 Saturation ABG Base Excess 3.4 H POC ABG pCO2 ABG Hemoglobin 13.3 L ABG Oxyhemoglobin ABG Chloride ABG Glucose Oxyhemoglobin 94.5 L Sodium Potassium Chloride Carbon Dioxide BUN Creatinine Glucose POC Glucose 113 H 108 H Lactic Acid Calcium Phosphorus Magnesium AST ALT Lactate Dehydrogenase Total Bilirubin Direct Bilirubin CK-MB (CK-2) C-Reactive Protein NT-Pro-B Natriuret Pep Total Protein Albumin Arterial Blood Glucose Urine WBC (Auto) Urine Creatinine 11/27/19 11/28/19 11/28/19 05:27 05:00 05:25 WBC RBC Hgb Hct MCHC RDW MCV MCH Lymph % (Auto) [facility] % (Auto) [facility] # Eos # Lymph # (Auto) [facility] # (Auto) Eos # (Auto) Seg Neutrophils % Seg Neuts % (Manual) Baso # (Auto) Lymphocytes % (Manual) Monocytes % (Manual) Eosinophils % (Manual) Basophils % (Manual) Seg Neutrophils # Seg Neutrophils # Man Lymphocytes # (Manual) Monocytes # (Manual) Eosinophils # (Manual) Nucleated RBC % Basophils # (Manual) PT INR APTT Heparin Anti-Xa Level ABG pH POC ABG pO2 68.1 L ABG pO2 ABG HCO3 ABG O2 Saturation ABG Base Excess POC ABG pCO2 ABG Hemoglobin ABG Oxyhemoglobin 91.2 L ABG Chloride ABG Glucose Oxyhemoglobin Sodium Potassium Chloride Carbon Dioxide BUN Creatinine Glucose POC Glucose 111 H 110 H Lactic Acid Calcium Phosphorus Magnesium AST ALT Lactate Dehydrogenase Total Bilirubin Direct Bilirubin CK-MB (CK-2) C-Reactive Protein NT-Pro-B Natriuret Pep Total Protein Albumin Arterial Blood Glucose Urine WBC (Auto) Urine Creatinine 11/28/19 11/28/19 11/28/19 12:08 13:47 13:47 WBC 11.3 H RBC Hgb Hct MCHC RDW 16.1 H MCV MCH Lymph % (Auto) [facility] % (Auto) 9.9 H [facility] # 1.1 H Eos # Lymph # (Auto) [facility] # (Auto) Eos # (Auto) Seg Neutrophils % 71.4 H Seg Neuts % (Manual) Baso # (Auto) Lymphocytes % (Manual) Monocytes % (Manual) Eosinophils % (Manual) Basophils % (Manual) Seg Neutrophils # 8.1 H Seg Neutrophils # Man Lymphocytes # (Manual) Monocytes # (Manual) Eosinophils # (Manual) Nucleated RBC % Basophils # (Manual) PT INR APTT Heparin Anti-Xa Level ABG pH POC ABG pO2 ABG pO2 ABG HCO3 ABG O2 Saturation ABG Base Excess POC ABG pCO2 ABG Hemoglobin ABG Oxyhemoglobin ABG Chloride ABG Glucose Oxyhemoglobin Sodium Potassium Chloride Carbon Dioxide BUN 23 H Creatinine Glucose 123 H POC Glucose 112 H Lactic Acid Calcium Phosphorus Magnesium AST ALT Lactate Dehydrogenase Total Bilirubin Direct Bilirubin CK-MB (CK-2) C-Reactive Protein NT-Pro-B Natriuret Pep Total Protein Albumin 3.7 L Arterial Blood Glucose Urine WBC (Auto) Urine Creatinine 11/28/19 11/29/19 11/29/19 17:26 03:55 17:04 WBC RBC Hgb Hct MCHC RDW MCV MCH Lymph % (Auto) [facility] % (Auto) [facility] # Eos # Lymph # (Auto) [facility] # (Auto) Eos # (Auto) Seg Neutrophils % Seg Neuts % (Manual) Baso # (Auto) Lymphocytes % (Manual) Monocytes % (Manual) Eosinophils % (Manual) Basophils % (Manual) Seg Neutrophils # Seg Neutrophils # Man Lymphocytes # (Manual) Monocytes # (Manual) Eosinophils # (Manual) Nucleated RBC % Basophils # (Manual) PT INR APTT Heparin Anti-Xa Level ABG pH POC ABG pO2 ABG pO2 65.7 L ABG HCO3 28.3 H ABG O2 Saturation 93.9 L ABG Base Excess 3.6 H POC ABG pCO2 ABG Hemoglobin 13.3 L ABG Oxyhemoglobin ABG Chloride ABG Glucose Oxyhemoglobin 91.5 L Sodium Potassium Chloride Carbon Dioxide BUN Creatinine Glucose POC Glucose 123 H 119 H Lactic Acid Calcium Phosphorus Magnesium AST ALT Lactate Dehydrogenase Total Bilirubin Direct Bilirubin CK-MB (CK-2) C-Reactive Protein NT-Pro-B Natriuret Pep Total Protein Albumin Arterial Blood Glucose Urine WBC (Auto) Urine Creatinine 11/30/19 11/30/19 11/30/19 04:17 04:17 04:56 WBC 13.4 H RBC Hgb Hct MCHC RDW 15.6 H MCV MCH Lymph % (Auto) [facility] % (Auto) [facility] # Eos # Lymph # (Auto) [facility] # (Auto) Eos # (Auto) Seg Neutrophils % Seg Neuts % (Manual) Baso # (Auto) Lymphocytes % (Manual) Monocytes % (Manual) Eosinophils % (Manual) Basophils % (Manual) Seg Neutrophils # Seg Neutrophils # Man Lymphocytes # (Manual) Monocytes # (Manual) Eosinophils # (Manual) Nucleated RBC % Basophils # (Manual) PT INR APTT Heparin Anti-Xa Level ABG pH POC ABG pO2 ABG pO2 56.3 L ABG HCO3 29.3 H ABG O2 Saturation 91.5 L ABG Base Excess 4.7 H POC ABG pCO2 ABG Hemoglobin 12.1 L ABG Oxyhemoglobin ABG Chloride ABG Glucose Oxyhemoglobin 89.2 L Sodium 147 H Potassium Chloride Carbon Dioxide BUN 30 H Creatinine Glucose 124 H POC Glucose Lactic Acid Calcium Phosphorus Magnesium AST ALT Lactate Dehydrogenase Total Bilirubin Direct Bilirubin CK-MB (CK-2) C-Reactive Protein NT-Pro-B Natriuret Pep Total Protein Albumin 3.8 L Arterial Blood Glucose Urine WBC (Auto) Urine Creatinine 11/30/19 11/30/19 11/30/19 05:51 11:54 18:17 WBC RBC Hgb Hct MCHC RDW MCV MCH Lymph % (Auto) [facility] % (Auto) [facility] # Eos # Lymph # (Auto) [facility] # (Auto) Eos # (Auto) Seg Neutrophils % Seg Neuts % (Manual) Baso # (Auto) Lymphocytes % (Manual) Monocytes % (Manual) Eosinophils % (Manual) Basophils % (Manual) Seg Neutrophils # Seg Neutrophils # Man Lymphocytes # (Manual) Monocytes # (Manual) Eosinophils # (Manual) Nucleated RBC % Basophils # (Manual) PT INR APTT Heparin Anti-Xa Level ABG pH POC ABG pO2 ABG pO2 ABG HCO3 ABG O2 Saturation ABG Base Excess POC ABG pCO2 ABG Hemoglobin ABG Oxyhemoglobin ABG Chloride ABG Glucose Oxyhemoglobin Sodium Potassium Chloride Carbon Dioxide BUN Creatinine Glucose POC Glucose 127 H 115 H 143 H Lactic Acid Calcium Phosphorus Magnesium AST ALT Lactate Dehydrogenase Total Bilirubin Direct Bilirubin CK-MB (CK-2) C-Reactive Protein NT-Pro-B Natriuret Pep Total Protein Albumin Arterial Blood Glucose Urine WBC (Auto) Urine Creatinine 12/01/19 12/01/19 12/01/19 01:18 05:22 12:16 WBC RBC Hgb Hct MCHC RDW MCV MCH Lymph % (Auto) [facility] % (Auto) [facility] # Eos # Lymph # (Auto) [facility] # (Auto) Eos # (Auto) Seg Neutrophils % Seg Neuts % (Manual) Baso # (Auto) Lymphocytes % (Manual) Monocytes % (Manual) Eosinophils % (Manual) Basophils % (Manual) Seg Neutrophils # Seg Neutrophils # Man Lymphocytes # (Manual) Monocytes # (Manual) Eosinophils # (Manual) Nucleated RBC % Basophils # (Manual) PT INR APTT Heparin Anti-Xa Level ABG pH POC ABG pO2 ABG pO2 ABG HCO3 ABG O2 Saturation ABG Base Excess POC ABG pCO2 ABG Hemoglobin ABG Oxyhemoglobin ABG Chloride ABG Glucose Oxyhemoglobin Sodium Potassium 3.5 L Chloride 107.8 H Carbon Dioxide BUN 37 H Creatinine Glucose 157 H POC Glucose 118 H 148 H Lactic Acid Calcium 8.2 L D Phosphorus Magnesium AST 48 H ALT 60 H Lactate Dehydrogenase 194 H Total Bilirubin Direct Bilirubin CK-MB (CK-2) C-Reactive Protein 8.50 H NT-Pro-B Natriuret Pep Total Protein 5.5 L Albumin 2.8 L Arterial Blood Glucose Urine WBC (Auto) Urine Creatinine 12/01/19 12/02/19 12/02/19 18:04 00:05 05:16 WBC 11.4 H RBC Hgb Hct MCHC RDW 15.9 H MCV MCH Lymph % (Auto) [facility] % (Auto) 9.9 H [facility] # 1.1 H Eos # Lymph # (Auto) [facility] # (Auto) Eos # (Auto) Seg Neutrophils % 70.3 H Seg Neuts % (Manual) Baso # (Auto) Lymphocytes % (Manual) Monocytes % (Manual) Eosinophils % (Manual) Basophils % (Manual) Seg Neutrophils # 8.0 H Seg Neutrophils # Man Lymphocytes # (Manual) Monocytes # (Manual) Eosinophils # (Manual) Nucleated RBC % Basophils # (Manual) PT INR APTT Heparin Anti-Xa Level ABG pH POC ABG pO2 ABG pO2 ABG HCO3 ABG O2 Saturation ABG Base Excess POC ABG pCO2 ABG Hemoglobin ABG Oxyhemoglobin ABG Chloride ABG Glucose Oxyhemoglobin Sodium Potassium Chloride Carbon Dioxide BUN Creatinine Glucose POC Glucose 143 H 107 H Lactic Acid Calcium Phosphorus Magnesium AST ALT Lactate Dehydrogenase Total Bilirubin Direct Bilirubin CK-MB (CK-2) C-Reactive Protein NT-Pro-B Natriuret Pep Total Protein Albumin Arterial Blood Glucose Urine WBC (Auto) Urine Creatinine 12/02/19 12/02/19 12/02/19 05:16 06:03 11:52 WBC RBC Hgb Hct MCHC RDW MCV MCH Lymph % (Auto) [facility] % (Auto) [facility] # Eos # Lymph # (Auto) [facility] # (Auto) Eos # (Auto) Seg Neutrophils % Seg Neuts % (Manual) Baso # (Auto) Lymphocytes % (Manual) Monocytes % (Manual) Eosinophils % (Manual) Basophils % (Manual) Seg Neutrophils # Seg Neutrophils # Man Lymphocytes # (Manual) Monocytes # (Manual) Eosinophils # (Manual) Nucleated RBC % Basophils # (Manual) PT INR APTT Heparin Anti-Xa Level ABG pH POC ABG pO2 ABG pO2 ABG HCO3 ABG O2 Saturation ABG Base Excess POC ABG pCO2 ABG Hemoglobin ABG Oxyhemoglobin ABG Chloride ABG Glucose Oxyhemoglobin Sodium 146 H Potassium Chloride Carbon Dioxide BUN 28 H Creatinine Glucose 123 H POC Glucose 110 H 152 H Lactic Acid Calcium Phosphorus Magnesium AST ALT Lactate Dehydrogenase Total Bilirubin Direct Bilirubin CK-MB (CK-2) C-Reactive Protein NT-Pro-B Natriuret Pep Total Protein Albumin Arterial Blood Glucose Urine WBC (Auto) Urine Creatinine 12/02/19 12/02/19 12/02/19 12:58 17:58 23:36 WBC RBC Hgb Hct MCHC RDW MCV MCH Lymph % (Auto) [facility] % (Auto) [facility] # Eos # Lymph # (Auto) [facility] # (Auto) Eos # (Auto) Seg Neutrophils % Seg Neuts % (Manual) Baso # (Auto) Lymphocytes % (Manual) Monocytes % (Manual) Eosinophils % (Manual) Basophils % (Manual) Seg Neutrophils # Seg Neutrophils # Man Lymphocytes # (Manual) Monocytes # (Manual) Eosinophils # (Manual) Nucleated RBC % Basophils # (Manual) PT INR APTT Heparin Anti-Xa Level ABG pH POC ABG pO2 78.1 L ABG pO2 ABG HCO3 ABG O2 Saturation ABG Base Excess POC ABG pCO2 ABG Hemoglobin ABG Oxyhemoglobin ABG Chloride ABG Glucose Oxyhemoglobin Sodium Potassium Chloride Carbon Dioxide BUN Creatinine Glucose POC Glucose 120 H 123 H Lactic Acid Calcium Phosphorus Magnesium AST ALT Lactate Dehydrogenase Total Bilirubin Direct Bilirubin CK-MB (CK-2) C-Reactive Protein NT-Pro-B Natriuret Pep Total Protein Albumin Arterial Blood Glucose Urine WBC (Auto) Urine Creatinine 12/03/19 12/03/19 12/03/19 06:03 06:14 11:46 WBC RBC Hgb Hct MCHC RDW MCV MCH Lymph % (Auto) [facility] % (Auto) [facility] # Eos # Lymph # (Auto) [facility] # (Auto) Eos # (Auto) Seg Neutrophils % Seg Neuts % (Manual) Baso # (Auto) Lymphocytes % (Manual) Monocytes % (Manual) Eosinophils % (Manual) Basophils % (Manual) Seg Neutrophils # Seg Neutrophils # Man Lymphocytes # (Manual) Monocytes # (Manual) Eosinophils # (Manual) Nucleated RBC % Basophils # (Manual) PT INR APTT Heparin Anti-Xa Level ABG pH POC ABG pO2 ABG pO2 ABG HCO3 ABG O2 Saturation ABG Base Excess POC ABG pCO2 ABG Hemoglobin ABG Oxyhemoglobin ABG Chloride ABG Glucose Oxyhemoglobin Sodium Potassium Chloride Carbon Dioxide BUN Creatinine Glucose POC Glucose 142 H 130 H Lactic Acid Calcium Phosphorus Magnesium AST ALT Lactate Dehydrogenase Total Bilirubin Direct Bilirubin CK-MB (CK-2) C-Reactive Protein NT-Pro-B Natriuret Pep Total Protein Albumin Arterial Blood Glucose Urine WBC (Auto) 8.0 H Urine Creatinine 12/03/19 12/03/19 12/04/19 15:50 17:39 00:04 WBC RBC Hgb Hct MCHC RDW MCV MCH Lymph % (Auto) [facility] % (Auto) [facility] # Eos # Lymph # (Auto) [facility] # (Auto) Eos # (Auto) Seg Neutrophils % Seg Neuts % (Manual) Baso # (Auto) Lymphocytes % (Manual) Monocytes % (Manual) Eosinophils % (Manual) Basophils % (Manual) Seg Neutrophils # Seg Neutrophils # Man Lymphocytes # (Manual) Monocytes # (Manual) Eosinophils # (Manual) Nucleated RBC % Basophils # (Manual) PT INR APTT Heparin Anti-Xa Level ABG pH POC ABG pO2 ABG pO2 ABG HCO3 ABG O2 Saturation ABG Base Excess POC ABG pCO2 ABG Hemoglobin ABG Oxyhemoglobin ABG Chloride ABG Glucose Oxyhemoglobin Sodium Potassium Chloride Carbon Dioxide BUN Creatinine Glucose POC Glucose 146 H 133 H Lactic Acid Calcium Phosphorus 2.40 L Magnesium AST ALT Lactate Dehydrogenase Total Bilirubin Direct Bilirubin CK-MB (CK-2) C-Reactive Protein NT-Pro-B Natriuret Pep Total Protein Albumin Arterial Blood Glucose Urine WBC (Auto) Urine Creatinine 12/04/19 12/04/19 12/04/19 03:58 03:58 05:22 WBC 12.5 H RBC Hgb 11.2 L Hct 35.2 L MCHC RDW 16.0 H MCV MCH Lymph % (Auto) [facility] % (Auto) 9.6 H [facility] # 1.2 H Eos # 0.5 H Lymph # (Auto) [facility] # (Auto) Eos # (Auto) Seg Neutrophils % Seg Neuts % (Manual) Baso # (Auto) Lymphocytes % (Manual) Monocytes % (Manual) Eosinophils % (Manual) Basophils % (Manual) Seg Neutrophils # 8.6 H Seg Neutrophils # Man Lymphocytes # (Manual) Monocytes # (Manual) Eosinophils # (Manual) Nucleated RBC % Basophils # (Manual) PT INR APTT Heparin Anti-Xa Level ABG pH POC ABG pO2 ABG pO2 ABG HCO3 ABG O2 Saturation ABG Base Excess POC ABG pCO2 ABG Hemoglobin ABG Oxyhemoglobin ABG Chloride ABG Glucose Oxyhemoglobin Sodium 146 H Potassium Chloride 108.6 H Carbon Dioxide BUN 30 H Creatinine 0.7 L Glucose 121 H POC Glucose 132 H Lactic Acid Calcium Phosphorus Magnesium AST ALT Lactate Dehydrogenase Total Bilirubin Direct Bilirubin CK-MB (CK-2) C-Reactive Protein NT-Pro-B Natriuret Pep Total Protein Albumin Arterial Blood Glucose Urine WBC (Auto) Urine Creatinine 12/04/19 12/04/19 12/05/19 13:26 18:43 00:19 WBC RBC Hgb Hct MCHC RDW MCV MCH Lymph % (Auto) [facility] % (Auto) [facility] # Eos # Lymph # (Auto) [facility] # (Auto) Eos # (Auto) Seg Neutrophils % Seg Neuts % (Manual) Baso # (Auto) Lymphocytes % (Manual) Monocytes % (Manual) Eosinophils % (Manual) Basophils % (Manual) Seg Neutrophils # Seg Neutrophils # Man Lymphocytes # (Manual) Monocytes # (Manual) Eosinophils # (Manual) Nucleated RBC % Basophils # (Manual) PT INR APTT Heparin Anti-Xa Level ABG pH POC ABG pO2 ABG pO2 ABG HCO3 ABG O2 Saturation ABG Base Excess POC ABG pCO2 ABG Hemoglobin ABG Oxyhemoglobin ABG Chloride ABG Glucose Oxyhemoglobin Sodium Potassium Chloride Carbon Dioxide BUN Creatinine Glucose POC Glucose 185 H 156 H 150 H Lactic Acid Calcium Phosphorus Magnesium AST ALT Lactate Dehydrogenase Total Bilirubin Direct Bilirubin CK-MB (CK-2) C-Reactive Protein NT-Pro-B Natriuret Pep Total Protein Albumin Arterial Blood Glucose Urine WBC (Auto) Urine Creatinine 12/05/19 12/05/19 12/05/19 03:37 03:37 05:14 WBC 16.3 H RBC Hgb 11.4 L Hct MCHC RDW 15.6 H MCV MCH Lymph % (Auto) 9.9 L [facility] % (Auto) 9.7 H [facility] # 1.6 H Eos # Lymph # (Auto) [facility] # (Auto) Eos # (Auto) Seg Neutrophils % 78.0 H Seg Neuts % (Manual) Baso # (Auto) Lymphocytes % (Manual) Monocytes % (Manual) Eosinophils % (Manual) Basophils % (Manual) Seg Neutrophils # 12.7 H Seg Neutrophils # Man Lymphocytes # (Manual) Monocytes # (Manual) Eosinophils # (Manual) Nucleated RBC % Basophils # (Manual) PT INR APTT Heparin Anti-Xa Level ABG pH POC ABG pO2 ABG pO2 ABG HCO3 ABG O2 Saturation ABG Base Excess POC ABG pCO2 ABG Hemoglobin ABG Oxyhemoglobin ABG Chloride ABG Glucose Oxyhemoglobin Sodium 146 H Potassium Chloride 107.2 H Carbon Dioxide BUN 27 H Creatinine 0.7 L Glucose 171 H POC Glucose 168 H Lactic Acid Calcium Phosphorus Magnesium AST ALT Lactate Dehydrogenase Total Bilirubin Direct Bilirubin CK-MB (CK-2) C-Reactive Protein NT-Pro-B Natriuret Pep Total Protein Albumin Arterial Blood Glucose Urine WBC (Auto) Urine Creatinine 12/05/19 12/05/19 12/05/19 12:31 18:10 23:58 WBC RBC Hgb Hct MCHC RDW MCV MCH Lymph % (Auto) [facility] % (Auto) [facility] # Eos # Lymph # (Auto) [facility] # (Auto) Eos # (Auto) Seg Neutrophils % Seg Neuts % (Manual) Baso # (Auto) Lymphocytes % (Manual) Monocytes % (Manual) Eosinophils % (Manual) Basophils % (Manual) Seg Neutrophils # Seg Neutrophils # Man Lymphocytes # (Manual) Monocytes # (Manual) Eosinophils # (Manual) Nucleated RBC % Basophils # (Manual) PT INR APTT Heparin Anti-Xa Level ABG pH POC ABG pO2 ABG pO2 ABG HCO3 ABG O2 Saturation ABG Base Excess POC ABG pCO2 ABG Hemoglobin ABG Oxyhemoglobin ABG Chloride ABG Glucose Oxyhemoglobin Sodium Potassium Chloride Carbon Dioxide BUN Creatinine Glucose POC Glucose 159 H 198 H 115 H Lactic Acid Calcium Phosphorus Magnesium AST ALT Lactate Dehydrogenase Total Bilirubin Direct Bilirubin CK-MB (CK-2) C-Reactive Protein NT-Pro-B Natriuret Pep Total Protein Albumin Arterial Blood Glucose Urine WBC (Auto) Urine Creatinine 12/06/19 12/06/19 12/06/19 05:24 05:24 05:25 WBC 14.9 H RBC Hgb 10.8 L Hct 34.0 L MCHC RDW 15.6 H MCV MCH Lymph % (Auto) 10.7 L [facility] % (Auto) 8.3 H [facility] # 1.2 H Eos # Lymph # (Auto) [facility] # (Auto) Eos # (Auto) Seg Neutrophils % 78.7 H Seg Neuts % (Manual) Baso # (Auto) Lymphocytes % (Manual) Monocytes % (Manual) Eosinophils % (Manual) Basophils % (Manual) Seg Neutrophils # 11.7 H Seg Neutrophils # Man Lymphocytes # (Manual) Monocytes # (Manual) Eosinophils # (Manual) Nucleated RBC % Basophils # (Manual) PT INR APTT Heparin Anti-Xa Level ABG pH POC ABG pO2 ABG pO2 ABG HCO3 ABG O2 Saturation ABG Base Excess POC ABG pCO2 ABG Hemoglobin ABG Oxyhemoglobin ABG Chloride ABG Glucose Oxyhemoglobin Sodium 148 H Potassium 5.1 H Chloride 107.6 H Carbon Dioxide BUN 27 H Creatinine 0.7 L Glucose 155 H POC Glucose 157 H Lactic Acid Calcium Phosphorus Magnesium AST ALT Lactate Dehydrogenase Total Bilirubin Direct Bilirubin CK-MB (CK-2) C-Reactive Protein NT-Pro-B Natriuret Pep Total Protein Albumin Arterial Blood Glucose Urine WBC (Auto) Urine Creatinine 12/07/19 12/07/1912/06/20 00:13 05:34 11:33 WBC RBC Hgb Hct MCHC RDW MCV MCH Lymph % (Auto) [facility] % (Auto) [facility] # Eos # Lymph # (Auto) [facility] # (Auto) Eos # (Auto) Seg Neutrophils % Seg Neuts % (Manual) Baso # (Auto) Lymphocytes % (Manual) Monocytes % (Manual) Eosinophils % (Manual) Basophils % (Manual) Seg Neutrophils # Seg Neutrophils # Man Lymphocytes # (Manual) Monocytes # (Manual) Eosinophils # (Manual) Nucleated RBC % Basophils # (Manual) PT INR APTT Heparin Anti-Xa Level ABG pH POC ABG pO2 ABG pO2 ABG HCO3 ABG O2 Saturation ABG Base Excess POC ABG pCO2 ABG Hemoglobin ABG Oxyhemoglobin ABG Chloride ABG Glucose Oxyhemoglobin Sodium Potassium Chloride Carbon Dioxide BUN Creatinine Glucose POC Glucose 142 H 111 H 169 H Lactic Acid Calcium Phosphorus Magnesium AST ALT Lactate Dehydrogenase Total Bilirubin Direct Bilirubin CK-MB (CK-2) C-Reactive Protein NT-Pro-B Natriuret Pep Total Protein Albumin Arterial Blood Glucose Urine WBC (Auto) Urine Creatinine 12/07/19 12/07/19 12/07/19 12:41 13:25 18:19 WBC 12.4 H RBC 3.53 L Hgb 10.2 L Hct 32.1 L MCHC RDW 15.3 H MCV MCH Lymph % (Auto) 10.6 L [facility] % (Auto) 7.8 H [facility] # 1.0 H Eos # Lymph # (Auto) [facility] # (Auto) Eos # (Auto) Seg Neutrophils % 77.6 H Seg Neuts % (Manual) Baso # (Auto) Lymphocytes % (Manual) Monocytes % (Manual) Eosinophils % (Manual) Basophils % (Manual) Seg Neutrophils # 9.6 H Seg Neutrophils # Man Lymphocytes # (Manual) Monocytes # (Manual) Eosinophils # (Manual) Nucleated RBC % Basophils # (Manual) PT INR APTT Heparin Anti-Xa Level ABG pH POC ABG pO2 ABG pO2 ABG HCO3 ABG O2 Saturation ABG Base Excess POC ABG pCO2 ABG Hemoglobin ABG Oxyhemoglobin ABG Chloride ABG Glucose Oxyhemoglobin Sodium 149 H Potassium Chloride 108.4 H Carbon Dioxide BUN 26 H Creatinine 0.6 L Glucose 149 H POC Glucose 164 H Lactic Acid Calcium Phosphorus Magnesium 2.60 H AST 121 H ALT 145 H Lactate Dehydrogenase Total Bilirubin Direct Bilirubin CK-MB (CK-2) C-Reactive Protein NT-Pro-B Natriuret Pep Total Protein Albumin 2.6 L Arterial Blood Glucose Urine WBC (Auto) Urine Creatinine 12/07/19 12/08/19 12/08/19 22:25 00:02 03:55 WBC 13.3 H RBC 3.40 L Hgb 9.7 L Hct 30.8 L MCHC 31 L RDW 15.5 H MCV MCH Lymph % (Auto) [facility] % (Auto) 8.1 H [facility] # 1.1 H Eos # Lymph # (Auto) [facility] # (Auto) Eos # (Auto) Seg Neutrophils % 73.0 H Seg Neuts % (Manual) Baso # (Auto) Lymphocytes % (Manual) Monocytes % (Manual) Eosinophils % (Manual) Basophils % (Manual) Seg Neutrophils # 9.7 H Seg Neutrophils # Man Lymphocytes # (Manual) Monocytes # (Manual) Eosinophils # (Manual) Nucleated RBC % Basophils # (Manual) PT INR APTT Heparin Anti-Xa Level 0.12 L ABG pH POC ABG pO2 ABG pO2 ABG HCO3 ABG O2 Saturation ABG Base Excess POC ABG pCO2 ABG Hemoglobin ABG Oxyhemoglobin ABG Chloride ABG Glucose Oxyhemoglobin Sodium Potassium Chloride Carbon Dioxide BUN Creatinine Glucose POC Glucose 151 H Lactic Acid Calcium Phosphorus Magnesium AST ALT Lactate Dehydrogenase Total Bilirubin Direct Bilirubin CK-MB (CK-2) C-Reactive Protein NT-Pro-B Natriuret Pep Total Protein Albumin Arterial Blood Glucose Urine WBC (Auto) Urine Creatinine 12/08/19 12/08/19 12/08/19 03:55 05:21 06:01 WBC RBC Hgb Hct MCHC RDW MCV MCH Lymph % (Auto) [facility] % (Auto) [facility] # Eos # Lymph # (Auto) [facility] # (Auto) Eos # (Auto) Seg Neutrophils % Seg Neuts % (Manual) Baso # (Auto) Lymphocytes % (Manual) Monocytes % (Manual) Eosinophils % (Manual) Basophils % (Manual) Seg Neutrophils # Seg Neutrophils # Man Lymphocytes # (Manual) Monocytes # (Manual) Eosinophils # (Manual) Nucleated RBC % Basophils # (Manual) PT INR APTT Heparin Anti-Xa Level 0.20 L ABG pH POC ABG pO2 ABG pO2 ABG HCO3 ABG O2 Saturation ABG Base Excess POC ABG pCO2 ABG Hemoglobin ABG Oxyhemoglobin ABG Chloride ABG Glucose Oxyhemoglobin Sodium 149 H Potassium Chloride 108.0 H Carbon Dioxide BUN 28 H Creatinine 0.6 L Glucose 144 H POC Glucose 143 H Lactic Acid Calcium Phosphorus Magnesium AST 98 H ALT 145 H Lactate Dehydrogenase Total Bilirubin Direct Bilirubin CK-MB (CK-2) C-Reactive Protein NT-Pro-B Natriuret Pep Total Protein 6.0 L Albumin 2.4 L Arterial Blood Glucose Urine WBC (Auto) Urine Creatinine 12/08/19 12/08/19 12/08/19 12:08 18:11 23:53 WBC RBC Hgb Hct MCHC RDW MCV MCH Lymph % (Auto) [facility] % (Auto) [facility] # Eos # Lymph # (Auto) [facility] # (Auto) Eos # (Auto) Seg Neutrophils % Seg Neuts % (Manual) Baso # (Auto) Lymphocytes % (Manual) Monocytes % (Manual) Eosinophils % (Manual) Basophils % (Manual) Seg Neutrophils # Seg Neutrophils # Man Lymphocytes # (Manual) Monocytes # (Manual) Eosinophils # (Manual) Nucleated RBC % Basophils # (Manual) PT INR APTT Heparin Anti-Xa Level ABG pH POC ABG pO2 ABG pO2 ABG HCO3 ABG O2 Saturation ABG Base Excess POC ABG pCO2 ABG Hemoglobin ABG Oxyhemoglobin ABG Chloride ABG Glucose Oxyhemoglobin Sodium Potassium Chloride Carbon Dioxide BUN Creatinine Glucose POC Glucose 172 H 122 H 162 H Lactic Acid Calcium Phosphorus Magnesium AST ALT Lactate Dehydrogenase Total Bilirubin Direct Bilirubin CK-MB (CK-2) C-Reactive Protein NT-Pro-B Natriuret Pep Total Protein Albumin Arterial Blood Glucose Urine WBC (Auto) Urine Creatinine 12/09/19 12/09/19 12/09/19 04:03 04:03 05:53 WBC RBC Hgb 9.1 L Hct 28.9 L MCHC RDW MCV MCH Lymph % (Auto) [facility] % (Auto) [facility] # Eos # Lymph # (Auto) [facility] # (Auto) Eos # (Auto) Seg Neutrophils % Seg Neuts % (Manual) Baso # (Auto) Lymphocytes % (Manual) Monocytes % (Manual) Eosinophils % (Manual) Basophils % (Manual) Seg Neutrophils # Seg Neutrophils # Man Lymphocytes # (Manual) Monocytes # (Manual) Eosinophils # (Manual) Nucleated RBC % Basophils # (Manual) PT INR APTT Heparin Anti-Xa Level 0.15 L ABG pH POC ABG pO2 ABG pO2 ABG HCO3 ABG O2 Saturation ABG Base Excess POC ABG pCO2 ABG Hemoglobin ABG Oxyhemoglobin ABG Chloride ABG Glucose Oxyhemoglobin Sodium Potassium Chloride Carbon Dioxide BUN Creatinine Glucose POC Glucose 124 H Lactic Acid Calcium Phosphorus Magnesium AST ALT Lactate Dehydrogenase Total Bilirubin Direct Bilirubin CK-MB (CK-2) C-Reactive Protein NT-Pro-B Natriuret Pep Total Protein Albumin Arterial Blood Glucose Urine WBC (Auto) Urine Creatinine 12/09/19 12/09/19 12/10/19 09:43 12:41 00:13 WBC RBC Hgb Hct MCHC RDW MCV MCH Lymph % (Auto) [facility] % (Auto) [facility] # Eos # Lymph # (Auto) [facility] # (Auto) Eos # (Auto) Seg Neutrophils % Seg Neuts % (Manual) Baso # (Auto) Lymphocytes % (Manual) Monocytes % (Manual) Eosinophils % (Manual) Basophils % (Manual) Seg Neutrophils # Seg Neutrophils # Man Lymphocytes # (Manual) Monocytes # (Manual) Eosinophils # (Manual) Nucleated RBC % Basophils # (Manual) PT INR APTT Heparin Anti-Xa Level ABG pH POC ABG pO2 ABG pO2 ABG HCO3 ABG O2 Saturation ABG Base Excess POC ABG pCO2 ABG Hemoglobin ABG Oxyhemoglobin ABG Chloride ABG Glucose Oxyhemoglobin Sodium Potassium Chloride Carbon Dioxide BUN 25 H Creatinine 0.6 L Glucose 131 H POC Glucose 109 H 120 H Lactic Acid Calcium Phosphorus Magnesium AST ALT Lactate Dehydrogenase Total Bilirubin Direct Bilirubin CK-MB (CK-2) C-Reactive Protein NT-Pro-B Natriuret Pep Total Protein Albumin Arterial Blood Glucose Urine WBC (Auto) Urine Creatinine 12/10/19 12/10/19 12/10/19 04:14 04:14 12:00 WBC 13.3 H RBC 3.34 L Hgb 9.6 L Hct 30.4 L MCHC RDW 15.4 H MCV MCH Lymph % (Auto) [facility] % (Auto) [facility] # Eos # Lymph # (Auto) [facility] # (Auto) Eos # (Auto) Seg Neutrophils % Seg Neuts % (Manual) 75.0 H Baso # (Auto) Lymphocytes % (Manual) 13.0 L Monocytes % (Manual) 8.0 H Eosinophils % (Manual) Basophils % (Manual) 2.0 H Seg Neutrophils # Seg Neutrophils # Man 10.0 H Lymphocytes # (Manual) Monocytes # (Manual) 1.1 H Eosinophils # (Manual) Nucleated RBC % Basophils # (Manual) 0.3 H PT INR APTT Heparin Anti-Xa Level ABG pH POC ABG pO2 ABG pO2 ABG HCO3 ABG O2 Saturation ABG Base Excess POC ABG pCO2 ABG Hemoglobin ABG Oxyhemoglobin ABG Chloride ABG Glucose Oxyhemoglobin Sodium 147 H Potassium Chloride 108.3 H Carbon Dioxide BUN 21 H Creatinine 0.6 L Glucose 104 H POC Glucose 133 H Lactic Acid Calcium Phosphorus Magnesium AST ALT Lactate Dehydrogenase Total Bilirubin Direct Bilirubin CK-MB (CK-2) C-Reactive Protein NT-Pro-B Natriuret Pep Total Protein Albumin Arterial Blood Glucose Urine WBC (Auto) Urine Creatinine 12/10/19 12/10/19 12/11/19 18:44 21:20 00:08 WBC 14.9 H RBC 3.36 L Hgb 9.6 L Hct 30.5 L MCHC RDW 15.4 H MCV MCH Lymph % (Auto) [facility] % (Auto) [facility] # Eos # Lymph # (Auto) [facility] # (Auto) Eos # (Auto) Seg Neutrophils % Seg Neuts % (Manual) Baso # (Auto) Lymphocytes % (Manual) Monocytes % (Manual) Eosinophils % (Manual) Basophils % (Manual) Seg Neutrophils # Seg Neutrophils # Man Lymphocytes # (Manual) Monocytes # (Manual) Eosinophils # (Manual) Nucleated RBC % Basophils # (Manual) PT INR APTT Heparin Anti-Xa Level ABG pH POC ABG pO2 ABG pO2 ABG HCO3 ABG O2 Saturation ABG Base Excess POC ABG pCO2 ABG Hemoglobin ABG Oxyhemoglobin ABG Chloride ABG Glucose Oxyhemoglobin Sodium Potassium Chloride Carbon Dioxide BUN Creatinine Glucose POC Glucose 119 H 134 H Lactic Acid Calcium Phosphorus Magnesium AST ALT Lactate Dehydrogenase Total Bilirubin Direct Bilirubin CK-MB (CK-2) C-Reactive Protein NT-Pro-B Natriuret Pep Total Protein Albumin Arterial Blood Glucose Urine WBC (Auto) Urine Creatinine 12/11/19 12/11/19 12/11/19 03:54 07:28 08:36 WBC 11.9 H RBC 3.25 L Hgb 9.6 L Hct 29.2 L MCHC RDW 15.7 H MCV MCH Lymph % (Auto) [facility] % (Auto) [facility] # Eos # Lymph # (Auto) [facility] # (Auto) Eos # (Auto) Seg Neutrophils % Seg Neuts % (Manual) Baso # (Auto) Lymphocytes % (Manual) Monocytes % (Manual) Eosinophils % (Manual) Basophils % (Manual) Seg Neutrophils # Seg Neutrophils # Man Lymphocytes # (Manual) Monocytes # (Manual) Eosinophils # (Manual) Nucleated RBC % Basophils # (Manual) PT INR APTT Heparin Anti-Xa Level 0.10 L 0.16 L ABG pH POC ABG pO2 ABG pO2 ABG HCO3 ABG O2 Saturation ABG Base Excess POC ABG pCO2 ABG Hemoglobin ABG Oxyhemoglobin ABG Chloride ABG Glucose Oxyhemoglobin Sodium Potassium Chloride Carbon Dioxide BUN Creatinine Glucose POC Glucose Lactic Acid Calcium Phosphorus Magnesium AST ALT Lactate Dehydrogenase Total Bilirubin Direct Bilirubin CK-MB (CK-2) C-Reactive Protein NT-Pro-B Natriuret Pep Total Protein Albumin Arterial Blood Glucose Urine WBC (Auto) Urine Creatinine 12/11/19 12/11/19 12/11/19 08:36 11:45 17:15 WBC RBC Hgb Hct MCHC RDW MCV MCH Lymph % (Auto) [facility] % (Auto) [facility] # Eos # Lymph # (Auto) [facility] # (Auto) Eos # (Auto) Seg Neutrophils % Seg Neuts % (Manual) Baso # (Auto) Lymphocytes % (Manual) Monocytes % (Manual) Eosinophils % (Manual) Basophils % (Manual) Seg Neutrophils # Seg Neutrophils # Man Lymphocytes # (Manual) Monocytes # (Manual) Eosinophils # (Manual) Nucleated RBC % Basophils # (Manual) PT INR APTT Heparin Anti-Xa Level ABG pH POC ABG pO2 ABG pO2 ABG HCO3 ABG O2 Saturation ABG Base Excess POC ABG pCO2 ABG Hemoglobin ABG Oxyhemoglobin ABG Chloride ABG Glucose Oxyhemoglobin Sodium Potassium Chloride Carbon Dioxide BUN Creatinine 0.5 L Glucose 128 H POC Glucose 136 H 109 H Lactic Acid Calcium Phosphorus Magnesium AST ALT Lactate Dehydrogenase Total Bilirubin Direct Bilirubin CK-MB (CK-2) C-Reactive Protein NT-Pro-B Natriuret Pep Total Protein Albumin Arterial Blood Glucose Urine WBC (Auto) Urine Creatinine 12/12/19 12/12/19 12/12/19 00:03 05:53 05:53 WBC RBC Hgb 8.8 L Hct 27.6 L MCHC RDW MCV MCH Lymph % (Auto) [facility] % (Auto) [facility] # Eos # Lymph # (Auto) [facility] # (Auto) Eos # (Auto) Seg Neutrophils % Seg Neuts % (Manual) Baso # (Auto) Lymphocytes % (Manual) Monocytes % (Manual) Eosinophils % (Manual) Basophils % (Manual) Seg Neutrophils # Seg Neutrophils # Man Lymphocytes # (Manual) Monocytes # (Manual) Eosinophils # (Manual) Nucleated RBC % Basophils # (Manual) PT INR APTT Heparin Anti-Xa Level 0.22 L ABG pH POC ABG pO2 ABG pO2 ABG HCO3 ABG O2 Saturation ABG Base Excess POC ABG pCO2 ABG Hemoglobin ABG Oxyhemoglobin ABG Chloride ABG Glucose Oxyhemoglobin Sodium Potassium Chloride Carbon Dioxide BUN Creatinine Glucose POC Glucose 116 H Lactic Acid Calcium Phosphorus Magnesium AST ALT Lactate Dehydrogenase Total Bilirubin Direct Bilirubin CK-MB (CK-2) C-Reactive Protein NT-Pro-B Natriuret Pep Total Protein Albumin Arterial Blood Glucose Urine WBC (Auto) Urine Creatinine 12/12/19 12/12/19 12/12/19 09:38 12:18 17:44 WBC RBC Hgb Hct MCHC RDW MCV MCH Lymph % (Auto) [facility] % (Auto) [facility] # Eos # Lymph # (Auto) [facility] # (Auto) Eos # (Auto) Seg Neutrophils % Seg Neuts % (Manual) Baso # (Auto) Lymphocytes % (Manual) Monocytes % (Manual) Eosinophils % (Manual) Basophils % (Manual) Seg Neutrophils # Seg Neutrophils # Man Lymphocytes # (Manual) Monocytes # (Manual) Eosinophils # (Manual) Nucleated RBC % Basophils # (Manual) PT INR APTT Heparin Anti-Xa Level ABG pH POC ABG pO2 ABG pO2 ABG HCO3 ABG O2 Saturation ABG Base Excess POC ABG pCO2 ABG Hemoglobin ABG Oxyhemoglobin ABG Chloride ABG Glucose Oxyhemoglobin Sodium Potassium Chloride Carbon Dioxide BUN Creatinine Glucose POC Glucose 115 H 146 H 146 H Lactic Acid Calcium Phosphorus Magnesium AST ALT Lactate Dehydrogenase Total Bilirubin Direct Bilirubin CK-MB (CK-2) C-Reactive Protein NT-Pro-B Natriuret Pep Total Protein Albumin Arterial Blood Glucose Urine WBC (Auto) Urine Creatinine 12/12/19 12/13/19 12/13/19 23:33 05:32 05:32 WBC 13.1 H RBC 3.27 L Hgb 9.5 L Hct 29.3 L MCHC RDW 15.6 H MCV MCH Lymph % (Auto) [facility] % (Auto) [facility] # Eos # Lymph # (Auto) [facility] # (Auto) Eos # (Auto) Seg Neutrophils % Seg Neuts % (Manual) 74.0 H Baso # (Auto) Lymphocytes % (Manual) 8.0 L Monocytes % (Manual) 9.0 H Eosinophils % (Manual) 5.0 H Basophils % (Manual) Seg Neutrophils # Seg Neutrophils # Man 9.7 H Lymphocytes # (Manual) 1.0 L Monocytes # (Manual) 1.2 H Eosinophils # (Manual) 0.7 H Nucleated RBC % Basophils # (Manual) PT INR APTT Heparin Anti-Xa Level 0.20 L ABG pH POC ABG pO2 ABG pO2 ABG HCO3 ABG O2 Saturation ABG Base Excess POC ABG pCO2 ABG Hemoglobin ABG Oxyhemoglobin ABG Chloride ABG Glucose Oxyhemoglobin Sodium Potassium Chloride Carbon Dioxide BUN Creatinine Glucose POC Glucose 126 H Lactic Acid Calcium Phosphorus Magnesium AST ALT Lactate Dehydrogenase Total Bilirubin Direct Bilirubin CK-MB (CK-2) C-Reactive Protein NT-Pro-B Natriuret Pep Total Protein Albumin Arterial Blood Glucose Urine WBC (Auto) Urine Creatinine 12/13/19 12/13/19 12/13/19 05:32 05:46 11:57 WBC RBC Hgb Hct MCHC RDW MCV MCH Lymph % (Auto) [facility] % (Auto) [facility] # Eos # Lymph # (Auto) [facility] # (Auto) Eos # (Auto) Seg Neutrophils % Seg Neuts % (Manual) Baso # (Auto) Lymphocytes % (Manual) Monocytes % (Manual) Eosinophils % (Manual) Basophils % (Manual) Seg Neutrophils # Seg Neutrophils # Man Lymphocytes # (Manual) Monocytes # (Manual) Eosinophils # (Manual) Nucleated RBC % Basophils # (Manual) PT INR APTT Heparin Anti-Xa Level ABG pH POC ABG pO2 ABG pO2 ABG HCO3 ABG O2 Saturation ABG Base Excess POC ABG pCO2 ABG Hemoglobin ABG Oxyhemoglobin ABG Chloride ABG Glucose Oxyhemoglobin Sodium Potassium Chloride Carbon Dioxide 31 H BUN Creatinine 0.6 L Glucose 114 H POC Glucose 118 H 133 H Lactic Acid Calcium Phosphorus Magnesium AST ALT Lactate Dehydrogenase Total Bilirubin Direct Bilirubin CK-MB (CK-2) C-Reactive Protein NT-Pro-B Natriuret Pep Total Protein Albumin Arterial Blood Glucose Urine WBC (Auto) Urine Creatinine 12/13/19 12/13/19 12/14/19 17:44 23:46 05:32 WBC RBC Hgb Hct MCHC RDW MCV MCH Lymph % (Auto) [facility] % (Auto) [facility] # Eos # Lymph # (Auto) [facility] # (Auto) Eos # (Auto) Seg Neutrophils % Seg Neuts % (Manual) Baso # (Auto) Lymphocytes % (Manual) Monocytes % (Manual) Eosinophils % (Manual) Basophils % (Manual) Seg Neutrophils # Seg Neutrophils # Man Lymphocytes # (Manual) Monocytes # (Manual) Eosinophils # (Manual) Nucleated RBC % Basophils # (Manual) PT INR APTT Heparin Anti-Xa Level ABG pH POC ABG pO2 ABG pO2 ABG HCO3 ABG O2 Saturation ABG Base Excess POC ABG pCO2 ABG Hemoglobin ABG Oxyhemoglobin ABG Chloride ABG Glucose Oxyhemoglobin Sodium Potassium Chloride Carbon Dioxide BUN Creatinine Glucose POC Glucose 161 H 126 H 139 H Lactic Acid Calcium Phosphorus Magnesium AST ALT Lactate Dehydrogenase Total Bilirubin Direct Bilirubin CK-MB (CK-2) C-Reactive Protein NT-Pro-B Natriuret Pep Total Protein Albumin Arterial Blood Glucose Urine WBC (Auto) Urine Creatinine 12/14/19 12/14/19 12/14/19 06:03 06:03 09:37 WBC RBC Hgb 9.6 L Hct 30.4 L MCHC RDW MCV MCH Lymph % (Auto) [facility] % (Auto) [facility] # Eos # Lymph # (Auto) [facility] # (Auto) Eos # (Auto) Seg Neutrophils % Seg Neuts % (Manual) Baso # (Auto) Lymphocytes % (Manual) Monocytes % (Manual) Eosinophils % (Manual) Basophils % (Manual) Seg Neutrophils # Seg Neutrophils # Man Lymphocytes # (Manual) Monocytes # (Manual) Eosinophils # (Manual) Nucleated RBC % Basophils # (Manual) PT INR APTT Heparin Anti-Xa Level 0.24 L ABG pH POC ABG pO2 ABG pO2 ABG HCO3 ABG O2 Saturation ABG Base Excess POC ABG pCO2 ABG Hemoglobin ABG Oxyhemoglobin ABG Chloride ABG Glucose Oxyhemoglobin Sodium Potassium Chloride Carbon Dioxide BUN Creatinine 0.6 L Glucose 162 H POC Glucose Lactic Acid Calcium Phosphorus Magnesium AST 71 H ALT 118 H Lactate Dehydrogenase Total Bilirubin Direct Bilirubin CK-MB (CK-2) C-Reactive Protein NT-Pro-B Natriuret Pep Total Protein 6.2 L Albumin 2.3 L Arterial Blood Glucose Urine WBC (Auto) Urine Creatinine 12/14/19 12/14/19 12/15/19 12:06 18:18 00:19 WBC RBC Hgb Hct MCHC RDW MCV MCH Lymph % (Auto) [facility] % (Auto) [facility] # Eos # Lymph # (Auto) [facility] # (Auto) Eos # (Auto) Seg Neutrophils % Seg Neuts % (Manual) Baso # (Auto) Lymphocytes % (Manual) Monocytes % (Manual) Eosinophils % (Manual) Basophils % (Manual) Seg Neutrophils # Seg Neutrophils # Man Lymphocytes # (Manual) Monocytes # (Manual) Eosinophils # (Manual) Nucleated RBC % Basophils # (Manual) PT INR APTT Heparin Anti-Xa Level ABG pH POC ABG pO2 ABG pO2 ABG HCO3 ABG O2 Saturation ABG Base Excess POC ABG pCO2 ABG Hemoglobin ABG Oxyhemoglobin ABG Chloride ABG Glucose Oxyhemoglobin Sodium Potassium Chloride Carbon Dioxide BUN Creatinine Glucose POC Glucose 147 H 166 H 123 H Lactic Acid Calcium Phosphorus Magnesium AST ALT Lactate Dehydrogenase Total Bilirubin Direct Bilirubin CK-MB (CK-2) C-Reactive Protein NT-Pro-B Natriuret Pep Total Protein Albumin Arterial Blood Glucose Urine WBC (Auto) Urine Creatinine 12/15/19 12/15/19 12/15/19 05:28 05:29 05:29 WBC 14.9 H RBC 3.19 L Hgb 9.1 L Hct 28.7 L MCHC RDW 16.0 H MCV MCH Lymph % (Auto) [facility] % (Auto) [facility] # Eos # Lymph # (Auto) [facility] # (Auto) Eos # (Auto) Seg Neutrophils % Seg Neuts % (Manual) Baso # (Auto) Lymphocytes % (Manual) Monocytes % (Manual) Eosinophils % (Manual) Basophils % (Manual) Seg Neutrophils # Seg Neutrophils # Man Lymphocytes # (Manual) Monocytes # (Manual) Eosinophils # (Manual) Nucleated RBC % Basophils # (Manual) PT INR APTT Heparin Anti-Xa Level 0.19 L ABG pH POC ABG pO2 ABG pO2 ABG HCO3 ABG O2 Saturation ABG Base Excess POC ABG pCO2 ABG Hemoglobin ABG Oxyhemoglobin ABG Chloride ABG Glucose Oxyhemoglobin Sodium Potassium Chloride Carbon Dioxide BUN Creatinine 0.6 L Glucose 110 H POC Glucose Lactic Acid Calcium Phosphorus Magnesium AST ALT Lactate Dehydrogenase Total Bilirubin Direct Bilirubin CK-MB (CK-2) C-Reactive Protein NT-Pro-B Natriuret Pep Total Protein Albumin Arterial Blood Glucose Urine WBC (Auto) Urine Creatinine 12/15/19 12/15/19 12/15/19 05:53 11:50 17:26 WBC RBC Hgb Hct MCHC RDW MCV MCH Lymph % (Auto) [facility] % (Auto) [facility] # Eos # Lymph # (Auto) [facility] # (Auto) Eos # (Auto) Seg Neutrophils % Seg Neuts % (Manual) Baso # (Auto) Lymphocytes % (Manual) Monocytes % (Manual) Eosinophils % (Manual) Basophils % (Manual) Seg Neutrophils # Seg Neutrophils # Man Lymphocytes # (Manual) Monocytes # (Manual) Eosinophils # (Manual) Nucleated RBC % Basophils # (Manual) PT INR APTT Heparin Anti-Xa Level ABG pH POC ABG pO2 ABG pO2 ABG HCO3 ABG O2 Saturation ABG Base Excess POC ABG pCO2 ABG Hemoglobin ABG Oxyhemoglobin ABG Chloride ABG Glucose Oxyhemoglobin Sodium Potassium Chloride Carbon Dioxide BUN Creatinine Glucose POC Glucose 119 H 132 H 128 H Lactic Acid Calcium Phosphorus Magnesium AST ALT Lactate Dehydrogenase Total Bilirubin Direct Bilirubin CK-MB (CK-2) C-Reactive Protein NT-Pro-B Natriuret Pep Total Protein Albumin Arterial Blood Glucose Urine WBC (Auto) Urine Creatinine 12/15/19 12/16/19 12/16/19 23:11 05:30 05:46 WBC RBC Hgb 8.8 L Hct 27.9 L MCHC RDW MCV MCH Lymph % (Auto) [facility] % (Auto) [facility] # Eos # Lymph # (Auto) [facility] # (Auto) Eos # (Auto) Seg Neutrophils % Seg Neuts % (Manual) Baso # (Auto) Lymphocytes % (Manual) Monocytes % (Manual) Eosinophils % (Manual) Basophils % (Manual) Seg Neutrophils # Seg Neutrophils # Man Lymphocytes # (Manual) Monocytes # (Manual) Eosinophils # (Manual) Nucleated RBC % Basophils # (Manual) PT INR APTT Heparin Anti-Xa Level ABG pH POC ABG pO2 ABG pO2 ABG HCO3 ABG O2 Saturation ABG Base Excess POC ABG pCO2 ABG Hemoglobin ABG Oxyhemoglobin ABG Chloride ABG Glucose Oxyhemoglobin Sodium Potassium Chloride Carbon Dioxide BUN Creatinine Glucose POC Glucose 150 H 134 H Lactic Acid Calcium Phosphorus Magnesium AST ALT Lactate Dehydrogenase Total Bilirubin Direct Bilirubin CK-MB (CK-2) C-Reactive Protein NT-Pro-B Natriuret Pep Total Protein Albumin Arterial Blood Glucose Urine WBC (Auto) Urine Creatinine 12/16/19 12/16/19 12/16/19 05:46 05:46 11:44 WBC RBC Hgb Hct MCHC RDW MCV MCH Lymph % (Auto) [facility] % (Auto) [facility] # Eos # Lymph # (Auto) [facility] # (Auto) Eos # (Auto) Seg Neutrophils % Seg Neuts % (Manual) Baso # (Auto) Lymphocytes % (Manual) Monocytes % (Manual) Eosinophils % (Manual) Basophils % (Manual) Seg Neutrophils # Seg Neutrophils # Man Lymphocytes # (Manual) Monocytes # (Manual) Eosinophils # (Manual) Nucleated RBC % Basophils # (Manual) PT INR APTT Heparin Anti-Xa Level 0.20 L ABG pH POC ABG pO2 ABG pO2 ABG HCO3 ABG O2 Saturation ABG Base Excess POC ABG pCO2 ABG Hemoglobin ABG Oxyhemoglobin ABG Chloride ABG Glucose Oxyhemoglobin Sodium Potassium Chloride Carbon Dioxide 31 H BUN Creatinine 0.5 L Glucose 147 H POC Glucose 164 H Lactic Acid Calcium Phosphorus Magnesium AST ALT Lactate Dehydrogenase Total Bilirubin Direct Bilirubin CK-MB (CK-2) C-Reactive Protein NT-Pro-B Natriuret Pep Total Protein Albumin Arterial Blood Glucose Urine WBC (Auto) Urine Creatinine 12/16/19 12/16/19 12/17/19 17:17 23:49 05:30 WBC 13.9 H RBC 3.27 L Hgb 9.4 L Hct 29.2 L MCHC RDW 16.0 H MCV MCH Lymph % (Auto) [facility] % (Auto) 8.8 H [facility] # Eos # Lymph # (Auto) [facility] # (Auto) 1.2 H Eos # (Auto) 0.5 H Seg Neutrophils % 70.5 H Seg Neuts % (Manual) Baso # (Auto) 0.2 H Lymphocytes % (Manual) Monocytes % (Manual) Eosinophils % (Manual) Basophils % (Manual) Seg Neutrophils # 9.8 H Seg Neutrophils # Man Lymphocytes # (Manual) Monocytes # (Manual) Eosinophils # (Manual) Nucleated RBC % Basophils # (Manual) PT INR APTT Heparin Anti-Xa Level ABG pH POC ABG pO2 ABG pO2 ABG HCO3 ABG O2 Saturation ABG Base Excess POC ABG pCO2 ABG Hemoglobin ABG Oxyhemoglobin ABG Chloride ABG Glucose Oxyhemoglobin Sodium Potassium Chloride Carbon Dioxide BUN Creatinine Glucose POC Glucose 162 H 144 H Lactic Acid Calcium Phosphorus Magnesium AST ALT Lactate Dehydrogenase Total Bilirubin Direct Bilirubin CK-MB (CK-2) C-Reactive Protein NT-Pro-B Natriuret Pep Total Protein Albumin Arterial Blood Glucose Urine WBC (Auto) Urine Creatinine 12/17/19 12/17/19 12/17/19 05:30 06:06 11:50 WBC RBC Hgb Hct MCHC RDW MCV MCH Lymph % (Auto) [facility] % (Auto) [facility] # Eos # Lymph # (Auto) [facility] # (Auto) Eos # (Auto) Seg Neutrophils % Seg Neuts % (Manual) Baso # (Auto) Lymphocytes % (Manual) Monocytes % (Manual) Eosinophils % (Manual) Basophils % (Manual) Seg Neutrophils # Seg Neutrophils # Man Lymphocytes # (Manual) Monocytes # (Manual) Eosinophils # (Manual) Nucleated RBC % Basophils # (Manual) PT INR APTT Heparin Anti-Xa Level ABG pH POC ABG pO2 ABG pO2 ABG HCO3 ABG O2 Saturation ABG Base Excess POC ABG pCO2 ABG Hemoglobin ABG Oxyhemoglobin ABG Chloride ABG Glucose Oxyhemoglobin Sodium Potassium Chloride 97.4 L Carbon Dioxide 32 H BUN Creatinine 0.5 L Glucose 135 H POC Glucose 151 H 140 H Lactic Acid Calcium Phosphorus Magnesium AST ALT Lactate Dehydrogenase Total Bilirubin Direct Bilirubin CK-MB (CK-2) C-Reactive Protein NT-Pro-B Natriuret Pep Total Protein Albumin Arterial Blood Glucose Urine WBC (Auto) Urine Creatinine 12/17/19 12/17/19 12/18/19 17:50 23:46 05:17 WBC RBC Hgb 8.8 L Hct 28.0 L MCHC RDW MCV MCH Lymph % (Auto) [facility] % (Auto) [facility] # Eos # Lymph # (Auto) [facility] # (Auto) Eos # (Auto) Seg Neutrophils % Seg Neuts % (Manual) Baso # (Auto) Lymphocytes % (Manual) Monocytes % (Manual) Eosinophils % (Manual) Basophils % (Manual) Seg Neutrophils # Seg Neutrophils # Man Lymphocytes # (Manual) Monocytes # (Manual) Eosinophils # (Manual) Nucleated RBC % Basophils # (Manual) PT INR APTT Heparin Anti-Xa Level ABG pH POC ABG pO2 ABG pO2 ABG HCO3 ABG O2 Saturation ABG Base Excess POC ABG pCO2 ABG Hemoglobin ABG Oxyhemoglobin ABG Chloride ABG Glucose Oxyhemoglobin Sodium Potassium Chloride Carbon Dioxide BUN Creatinine Glucose POC Glucose 158 H 150 H Lactic Acid Calcium Phosphorus Magnesium AST ALT Lactate Dehydrogenase Total Bilirubin Direct Bilirubin CK-MB (CK-2) C-Reactive Protein NT-Pro-B Natriuret Pep Total Protein Albumin Arterial Blood Glucose Urine WBC (Auto) Urine Creatinine 12/18/19 12/18/19 12/18/19 05:17 05:49 11:12 WBC RBC Hgb Hct MCHC RDW MCV MCH Lymph % (Auto) [facility] % (Auto) [facility] # Eos # Lymph # (Auto) [facility] # (Auto) Eos # (Auto) Seg Neutrophils % Seg Neuts % (Manual) Baso # (Auto) Lymphocytes % (Manual) Monocytes % (Manual) Eosinophils % (Manual) Basophils % (Manual) Seg Neutrophils # Seg Neutrophils # Man Lymphocytes # (Manual) Monocytes # (Manual) Eosinophils # (Manual) Nucleated RBC % Basophils # (Manual) PT INR APTT Heparin Anti-Xa Level 0.16 L ABG pH POC ABG pO2 ABG pO2 ABG HCO3 ABG O2 Saturation ABG Base Excess POC ABG pCO2 ABG Hemoglobin ABG Oxyhemoglobin ABG Chloride ABG Glucose Oxyhemoglobin Sodium Potassium Chloride Carbon Dioxide BUN Creatinine Glucose POC Glucose 127 H 191 H Lactic Acid Calcium Phosphorus Magnesium AST ALT Lactate Dehydrogenase Total Bilirubin Direct Bilirubin CK-MB (CK-2) C-Reactive Protein NT-Pro-B Natriuret Pep Total Protein Albumin Arterial Blood Glucose Urine WBC (Auto) Urine Creatinine 12/18/19 12/18/19 12/19/19 17:03 20:16 00:08 WBC RBC Hgb Hct MCHC RDW MCV MCH Lymph % (Auto) [facility] % (Auto) [facility] # Eos # Lymph # (Auto) [facility] # (Auto) Eos # (Auto) Seg Neutrophils % Seg Neuts % (Manual) Baso # (Auto) Lymphocytes % (Manual) Monocytes % (Manual) Eosinophils % (Manual) Basophils % (Manual) Seg Neutrophils # Seg Neutrophils # Man Lymphocytes # (Manual) Monocytes # (Manual) Eosinophils # (Manual) Nucleated RBC % Basophils # (Manual) PT INR APTT Heparin Anti-Xa Level ABG pH POC ABG pO2 ABG pO2 ABG HCO3 ABG O2 Saturation ABG Base Excess POC ABG pCO2 ABG Hemoglobin ABG Oxyhemoglobin ABG Chloride ABG Glucose Oxyhemoglobin Sodium Potassium Chloride Carbon Dioxide BUN Creatinine Glucose POC Glucose 133 H 128 H 129 H Lactic Acid Calcium Phosphorus Magnesium AST ALT Lactate Dehydrogenase Total Bilirubin Direct Bilirubin CK-MB (CK-2) C-Reactive Protein NT-Pro-B Natriuret Pep Total Protein Albumin Arterial Blood Glucose Urine WBC (Auto) Urine Creatinine 12/19/19 12/19/19 12/19/19 04:45 04:45 05:35 WBC RBC Hgb Hct MCHC RDW MCV MCH Lymph % (Auto) [facility] % (Auto) [facility] # Eos # Lymph # (Auto) [facility] # (Auto) Eos # (Auto) Seg Neutrophils % Seg Neuts % (Manual) Baso # (Auto) Lymphocytes % (Manual) Monocytes % (Manual) Eosinophils % (Manual) Basophils % (Manual) Seg Neutrophils # Seg Neutrophils # Man Lymphocytes # (Manual) Monocytes # (Manual) Eosinophils # (Manual) Nucleated RBC % Basophils # (Manual) PT INR APTT Heparin Anti-Xa Level 0.17 L ABG pH POC ABG pO2 ABG pO2 ABG HCO3 ABG O2 Saturation ABG Base Excess POC ABG pCO2 ABG Hemoglobin ABG Oxyhemoglobin ABG Chloride ABG Glucose Oxyhemoglobin Sodium Potassium Chloride Carbon Dioxide BUN Creatinine Glucose POC Glucose 120 H Lactic Acid Calcium Phosphorus Magnesium AST ALT Lactate Dehydrogenase 228 H Total Bilirubin Direct Bilirubin CK-MB (CK-2) C-Reactive Protein NT-Pro-B Natriuret Pep Total Protein Albumin Arterial Blood Glucose Urine WBC (Auto) Urine Creatinine 12/19/19 12/19/19 12/19/19 09:20 11:32 11:32 WBC 14.6 H RBC 3.08 L Hgb 9.0 L Hct 26.8 L MCHC RDW 15.9 H MCV MCH Lymph % (Auto) [facility] % (Auto) [facility] # Eos # Lymph # (Auto) [facility] # (Auto) Eos # (Auto) Seg Neutrophils % Seg Neuts % (Manual) 82.0 H Baso # (Auto) Lymphocytes % (Manual) 10.0 L Monocytes % (Manual) Eosinophils % (Manual) Basophils % (Manual) Seg Neutrophils # Seg Neutrophils # Man 12.0 H Lymphocytes # (Manual) Monocytes # (Manual) 0.9 H Eosinophils # (Manual) Nucleated RBC % 1.0 H Basophils # (Manual) PT INR APTT Heparin Anti-Xa Level ABG pH 7.451 H POC ABG pO2 ABG pO2 62.6 L ABG HCO3 33.2 H ABG O2 Saturation 93.8 L ABG Base Excess 8.3 H POC ABG pCO2 ABG Hemoglobin 8.3 L ABG Oxyhemoglobin ABG Chloride ABG Glucose Oxyhemoglobin 91.9 L Sodium Potassium Chloride 95.0 L Carbon Dioxide 33 H BUN 22 H Creatinine 0.6 L Glucose 150 H POC Glucose Lactic Acid Calcium Phosphorus Magnesium AST ALT Lactate Dehydrogenase Total Bilirubin Direct Bilirubin CK-MB (CK-2) C-Reactive Protein NT-Pro-B Natriuret Pep Total Protein 6.2 L Albumin 2.4 L Arterial Blood Glucose Urine WBC (Auto) Urine Creatinine 12/19/19 12/19/19 12/20/19 11:56 18:17 00:09 WBC RBC Hgb Hct MCHC RDW MCV MCH Lymph % (Auto) [facility] % (Auto) [facility] # Eos # Lymph # (Auto) [facility] # (Auto) Eos # (Auto) Seg Neutrophils % Seg Neuts % (Manual) Baso # (Auto) Lymphocytes % (Manual) Monocytes % (Manual) Eosinophils % (Manual) Basophils % (Manual) Seg Neutrophils # Seg Neutrophils # Man Lymphocytes # (Manual) Monocytes # (Manual) Eosinophils # (Manual) Nucleated RBC % Basophils # (Manual) PT INR APTT Heparin Anti-Xa Level ABG pH POC ABG pO2 ABG pO2 ABG HCO3 ABG O2 Saturation ABG Base Excess POC ABG pCO2 ABG Hemoglobin ABG Oxyhemoglobin ABG Chloride ABG Glucose Oxyhemoglobin Sodium Potassium Chloride Carbon Dioxide BUN Creatinine Glucose POC Glucose 156 H 156 H 155 H Lactic Acid Calcium Phosphorus Magnesium AST ALT Lactate Dehydrogenase Total Bilirubin Direct Bilirubin CK-MB (CK-2) C-Reactive Protein NT-Pro-B Natriuret Pep Total Protein Albumin Arterial Blood Glucose Urine WBC (Auto) Urine Creatinine 12/20/19 12/20/19 12/20/19 05:26 06:02 18:17 WBC RBC Hgb Hct MCHC RDW MCV MCH Lymph % (Auto) [facility] % (Auto) [facility] # Eos # Lymph # (Auto) [facility] # (Auto) Eos # (Auto) Seg Neutrophils % Seg Neuts % (Manual) Baso # (Auto) Lymphocytes % (Manual) Monocytes % (Manual) Eosinophils % (Manual) Basophils % (Manual) Seg Neutrophils # Seg Neutrophils # Man Lymphocytes # (Manual) Monocytes # (Manual) Eosinophils # (Manual) Nucleated RBC % Basophils # (Manual) PT INR APTT Heparin Anti-Xa Level 0.19 L ABG pH POC ABG pO2 ABG pO2 ABG HCO3 ABG O2 Saturation ABG Base Excess POC ABG pCO2 ABG Hemoglobin ABG Oxyhemoglobin ABG Chloride ABG Glucose Oxyhemoglobin Sodium Potassium Chloride Carbon Dioxide BUN Creatinine Glucose POC Glucose 137 H 128 H Lactic Acid Calcium Phosphorus Magnesium AST ALT Lactate Dehydrogenase Total Bilirubin Direct Bilirubin CK-MB (CK-2) C-Reactive Protein NT-Pro-B Natriuret Pep Total Protein Albumin Arterial Blood Glucose Urine WBC (Auto) Urine Creatinine 12/20/19 12/21/19 12/21/19 23:34 05:31 05:31 WBC 12.7 H RBC 3.09 L Hgb 8.9 L Hct 27.4 L MCHC RDW 15.8 H MCV MCH Lymph % (Auto) 12.1 L [facility] % (Auto) 7.8 H [facility] # Eos # Lymph # (Auto) [facility] # (Auto) 1.0 H Eos # (Auto) Seg Neutrophils % 77.1 H Seg Neuts % (Manual) Baso # (Auto) Lymphocytes % (Manual) Monocytes % (Manual) Eosinophils % (Manual) Basophils % (Manual) Seg Neutrophils # 9.8 H Seg Neutrophils # Man Lymphocytes # (Manual) Monocytes # (Manual) Eosinophils # (Manual) Nucleated RBC % Basophils # (Manual) PT INR APTT Heparin Anti-Xa Level ABG pH POC ABG pO2 ABG pO2 ABG HCO3 ABG O2 Saturation ABG Base Excess POC ABG pCO2 ABG Hemoglobin ABG Oxyhemoglobin ABG Chloride ABG Glucose Oxyhemoglobin Sodium Potassium Chloride 96.9 L Carbon Dioxide 37 H BUN 27 H Creatinine 0.7 L Glucose 140 H POC Glucose 145 H Lactic Acid Calcium Phosphorus Magnesium AST ALT Lactate Dehydrogenase Total Bilirubin Direct Bilirubin CK-MB (CK-2) C-Reactive Protein NT-Pro-B Natriuret Pep Total Protein Albumin Arterial Blood Glucose Urine WBC (Auto) Urine Creatinine 12/21/19 12/21/19 12/21/19 05:38 10:13 11:51 WBC RBC Hgb Hct MCHC RDW MCV MCH Lymph % (Auto) [facility] % (Auto) [facility] # Eos # Lymph # (Auto) [facility] # (Auto) Eos # (Auto) Seg Neutrophils % Seg Neuts % (Manual) Baso # (Auto) Lymphocytes % (Manual) Monocytes % (Manual) Eosinophils % (Manual) Basophils % (Manual) Seg Neutrophils # Seg Neutrophils # Man Lymphocytes # (Manual) Monocytes # (Manual) Eosinophils # (Manual) Nucleated RBC % Basophils # (Manual) PT INR APTT 23.9 L Heparin Anti-Xa Level < 0.10 L ABG pH POC ABG pO2 ABG pO2 ABG HCO3 ABG O2 Saturation ABG Base Excess POC ABG pCO2 ABG Hemoglobin ABG Oxyhemoglobin ABG Chloride ABG Glucose Oxyhemoglobin Sodium Potassium Chloride Carbon Dioxide BUN Creatinine Glucose POC Glucose 151 H 145 H Lactic Acid Calcium Phosphorus Magnesium AST ALT Lactate Dehydrogenase Total Bilirubin Direct Bilirubin CK-MB (CK-2) C-Reactive Protein NT-Pro-B Natriuret Pep Total Protein Albumin Arterial Blood Glucose Urine WBC (Auto) Urine Creatinine 12/21/19 12/22/19 12/22/19 17:16 00:01 01:33 WBC RBC Hgb Hct MCHC RDW MCV MCH Lymph % (Auto) [facility] % (Auto) [facility] # Eos # Lymph # (Auto) [facility] # (Auto) Eos # (Auto) Seg Neutrophils % Seg Neuts % (Manual) Baso # (Auto) Lymphocytes % (Manual) Monocytes % (Manual) Eosinophils % (Manual) Basophils % (Manual) Seg Neutrophils # Seg Neutrophils # Man Lymphocytes # (Manual) Monocytes # (Manual) Eosinophils # (Manual) Nucleated RBC % Basophils # (Manual) PT INR APTT Heparin Anti-Xa Level 0.10 L ABG pH POC ABG pO2 ABG pO2 ABG HCO3 ABG O2 Saturation ABG Base Excess POC ABG pCO2 ABG Hemoglobin ABG Oxyhemoglobin ABG Chloride ABG Glucose Oxyhemoglobin Sodium Potassium Chloride Carbon Dioxide BUN Creatinine Glucose POC Glucose 167 H 179 H Lactic Acid Calcium Phosphorus Magnesium AST ALT Lactate Dehydrogenase Total Bilirubin Direct Bilirubin CK-MB (CK-2) C-Reactive Protein NT-Pro-B Natriuret Pep Total Protein Albumin Arterial Blood Glucose Urine WBC (Auto) Urine Creatinine 12/22/19 12/22/19 12/22/19 03:22 05:10 05:10 WBC 13.8 H RBC 3.20 L Hgb 8.9 L Hct 28.1 L MCHC RDW 15.9 H MCV MCH Lymph % (Auto) [facility] % (Auto) [facility] # Eos # Lymph # (Auto) [facility] # (Auto) Eos # (Auto) Seg Neutrophils % Seg Neuts % (Manual) Baso # (Auto) Lymphocytes % (Manual) Monocytes % (Manual) Eosinophils % (Manual) Basophils % (Manual) Seg Neutrophils # Seg Neutrophils # Man Lymphocytes # (Manual) Monocytes # (Manual) Eosinophils # (Manual) Nucleated RBC % Basophils # (Manual) PT INR APTT Heparin Anti-Xa Level ABG pH POC ABG pO2 52.3 L ABG pO2 ABG HCO3 ABG O2 Saturation ABG Base Excess POC ABG pCO2 52.9 H ABG Hemoglobin 10.7 L ABG Oxyhemoglobin 84 L ABG Chloride ABG Glucose Oxyhemoglobin Sodium Potassium Chloride 96.6 L Carbon Dioxide BUN 25 H Creatinine 0.7 L Glucose 129 H POC Glucose Lactic Acid Calcium Phosphorus Magnesium AST ALT Lactate Dehydrogenase Total Bilirubin Direct Bilirubin CK-MB (CK-2) C-Reactive Protein NT-Pro-B Natriuret Pep Total Protein Albumin Arterial Blood Glucose Urine WBC (Auto) Urine Creatinine 12/22/19 12/22/19 12/22/19 05:18 12:32 12:43 WBC RBC Hgb Hct MCHC RDW MCV MCH Lymph % (Auto) [facility] % (Auto) [facility] # Eos # Lymph # (Auto) [facility] # (Auto) Eos # (Auto) Seg Neutrophils % Seg Neuts % (Manual) Baso # (Auto) Lymphocytes % (Manual) Monocytes % (Manual) Eosinophils % (Manual) Basophils % (Manual) Seg Neutrophils # Seg Neutrophils # Man Lymphocytes # (Manual) Monocytes # (Manual) Eosinophils # (Manual) Nucleated RBC % Basophils # (Manual) PT INR APTT Heparin Anti-Xa Level 0.18 L ABG pH POC ABG pO2 ABG pO2 ABG HCO3 ABG O2 Saturation ABG Base Excess POC ABG pCO2 ABG Hemoglobin ABG Oxyhemoglobin ABG Chloride ABG Glucose Oxyhemoglobin Sodium Potassium Chloride Carbon Dioxide BUN Creatinine Glucose POC Glucose 131 H 208 H Lactic Acid Calcium Phosphorus Magnesium AST ALT Lactate Dehydrogenase Total Bilirubin Direct Bilirubin CK-MB (CK-2) C-Reactive Protein NT-Pro-B Natriuret Pep Total Protein Albumin Arterial Blood Glucose Urine WBC (Auto) Urine Creatinine 12/22/19 12/22/19 12/23/19 17:44 23:20 03:51 WBC 15.2 H RBC 3.43 L Hgb 9.6 L Hct 30.3 L MCHC RDW 15.9 H MCV MCH Lymph % (Auto) [facility] % (Auto) [facility] # Eos # Lymph # (Auto) [facility] # (Auto) Eos # (Auto) Seg Neutrophils % Seg Neuts % (Manual) Baso # (Auto) Lymphocytes % (Manual) Monocytes % (Manual) Eosinophils % (Manual) Basophils % (Manual) Seg Neutrophils # Seg Neutrophils # Man Lymphocytes # (Manual) Monocytes # (Manual) Eosinophils # (Manual) Nucleated RBC % Basophils # (Manual) PT INR APTT Heparin Anti-Xa Level ABG pH POC ABG pO2 ABG pO2 ABG HCO3 ABG O2 Saturation ABG Base Excess POC ABG pCO2 ABG Hemoglobin ABG Oxyhemoglobin ABG Chloride ABG Glucose Oxyhemoglobin Sodium Potassium Chloride Carbon Dioxide BUN Creatinine Glucose POC Glucose 209 H 119 H Lactic Acid Calcium Phosphorus Magnesium AST ALT Lactate Dehydrogenase Total Bilirubin Direct Bilirubin CK-MB (CK-2) C-Reactive Protein NT-Pro-B Natriuret Pep Total Protein Albumin Arterial Blood Glucose Urine WBC (Auto) Urine Creatinine 12/23/19 12/23/19 12/23/19 03:51 05:31 12:09 WBC RBC Hgb Hct MCHC RDW MCV MCH Lymph % (Auto) [facility] % (Auto) [facility] # Eos # Lymph # (Auto) [facility] # (Auto) Eos # (Auto) Seg Neutrophils % Seg Neuts % (Manual) Baso # (Auto) Lymphocytes % (Manual) Monocytes % (Manual) Eosinophils % (Manual) Basophils % (Manual) Seg Neutrophils # Seg Neutrophils # Man Lymphocytes # (Manual) Monocytes # (Manual) Eosinophils # (Manual) Nucleated RBC % Basophils # (Manual) PT INR APTT Heparin Anti-Xa Level ABG pH POC ABG pO2 ABG pO2 ABG HCO3 ABG O2 Saturation ABG Base Excess POC ABG pCO2 ABG Hemoglobin ABG Oxyhemoglobin ABG Chloride ABG Glucose Oxyhemoglobin Sodium Potassium Chloride 97.2 L Carbon Dioxide 31 H BUN 23 H Creatinine 0.6 L Glucose 153 H POC Glucose 149 H 144 H Lactic Acid Calcium Phosphorus Magnesium AST ALT Lactate Dehydrogenase Total Bilirubin Direct Bilirubin CK-MB (CK-2) C-Reactive Protein NT-Pro-B Natriuret Pep Total Protein Albumin Arterial Blood Glucose Urine WBC (Auto) Urine Creatinine 12/23/19 12/23/19 12/23/19 15:30 17:49 23:31 WBC RBC Hgb Hct MCHC RDW MCV MCH Lymph % (Auto) [facility] % (Auto) [facility] # Eos # Lymph # (Auto) [facility] # (Auto) Eos # (Auto) Seg Neutrophils % Seg Neuts % (Manual) Baso # (Auto) Lymphocytes % (Manual) Monocytes % (Manual) Eosinophils % (Manual) Basophils % (Manual) Seg Neutrophils # Seg Neutrophils # Man Lymphocytes # (Manual) Monocytes # (Manual) Eosinophils # (Manual) Nucleated RBC % Basophils # (Manual) PT INR APTT Heparin Anti-Xa Level 0.21 L ABG pH POC ABG pO2 ABG pO2 ABG HCO3 ABG O2 Saturation ABG Base Excess POC ABG pCO2 ABG Hemoglobin ABG Oxyhemoglobin ABG Chloride ABG Glucose Oxyhemoglobin Sodium Potassium Chloride Carbon Dioxide BUN Creatinine Glucose POC Glucose 192 H 151 H Lactic Acid Calcium Phosphorus Magnesium AST ALT Lactate Dehydrogenase Total Bilirubin Direct Bilirubin CK-MB (CK-2) C-Reactive Protein NT-Pro-B Natriuret Pep Total Protein Albumin Arterial Blood Glucose Urine WBC (Auto) Urine Creatinine 12/24/19 12/24/19 12/24/19 05:34 12:13 16:50 WBC RBC Hgb Hct MCHC RDW MCV MCH Lymph % (Auto) [facility] % (Auto) [facility] # Eos # Lymph # (Auto) [facility] # (Auto) Eos # (Auto) Seg Neutrophils % Seg Neuts % (Manual) Baso # (Auto) Lymphocytes % (Manual) Monocytes % (Manual) Eosinophils % (Manual) Basophils % (Manual) Seg Neutrophils # Seg Neutrophils # Man Lymphocytes # (Manual) Monocytes # (Manual) Eosinophils # (Manual) Nucleated RBC % Basophils # (Manual) PT INR APTT Heparin Anti-Xa Level 0.16 L ABG pH POC ABG pO2 ABG pO2 ABG HCO3 ABG O2 Saturation ABG Base Excess POC ABG pCO2 ABG Hemoglobin ABG Oxyhemoglobin ABG Chloride ABG Glucose Oxyhemoglobin Sodium Potassium Chloride Carbon Dioxide BUN Creatinine Glucose POC Glucose 145 H 124 H Lactic Acid Calcium Phosphorus Magnesium AST ALT Lactate Dehydrogenase Total Bilirubin Direct Bilirubin CK-MB (CK-2) C-Reactive Protein NT-Pro-B Natriuret Pep Total Protein Albumin Arterial Blood Glucose Urine WBC (Auto) Urine Creatinine 12/24/19 12/25/19 12/25/19 17:53 00:14 04:18 WBC 12.9 H RBC 3.30 L Hgb 9.1 L Hct 28.8 L MCHC RDW 16.4 H MCV MCH Lymph % (Auto) [facility] % (Auto) 7.8 H [facility] # Eos # Lymph # (Auto) [facility] # (Auto) 1.0 H Eos # (Auto) Seg Neutrophils % 75.5 H Seg Neuts % (Manual) Baso # (Auto) Lymphocytes % (Manual) Monocytes % (Manual) Eosinophils % (Manual) Basophils % (Manual) Seg Neutrophils # 9.7 H Seg Neutrophils # Man Lymphocytes # (Manual) Monocytes # (Manual) Eosinophils # (Manual) Nucleated RBC % Basophils # (Manual) PT INR APTT Heparin Anti-Xa Level ABG pH POC ABG pO2 ABG pO2 ABG HCO3 ABG O2 Saturation ABG Base Excess POC ABG pCO2 ABG Hemoglobin ABG Oxyhemoglobin ABG Chloride ABG Glucose Oxyhemoglobin Sodium Potassium Chloride Carbon Dioxide BUN Creatinine Glucose POC Glucose 164 H 148 H Lactic Acid Calcium Phosphorus Magnesium AST ALT Lactate Dehydrogenase Total Bilirubin Direct Bilirubin CK-MB (CK-2) C-Reactive Protein NT-Pro-B Natriuret Pep Total Protein Albumin Arterial Blood Glucose Urine WBC (Auto) Urine Creatinine 12/25/19 12/25/19 12/25/19 04:18 05:38 11:44 WBC RBC Hgb Hct MCHC RDW MCV MCH Lymph % (Auto) [facility] % (Auto) [facility] # Eos # Lymph # (Auto) [facility] # (Auto) Eos # (Auto) Seg Neutrophils % Seg Neuts % (Manual) Baso # (Auto) Lymphocytes % (Manual) Monocytes % (Manual) Eosinophils % (Manual) Basophils % (Manual) Seg Neutrophils # Seg Neutrophils # Man Lymphocytes # (Manual) Monocytes # (Manual) Eosinophils # (Manual) Nucleated RBC % Basophils # (Manual) PT INR APTT Heparin Anti-Xa Level ABG pH POC ABG pO2 ABG pO2 ABG HCO3 ABG O2 Saturation ABG Base Excess POC ABG pCO2 ABG Hemoglobin ABG Oxyhemoglobin ABG Chloride ABG Glucose Oxyhemoglobin Sodium Potassium Chloride Carbon Dioxide 33 H BUN 27 H Creatinine 0.6 L Glucose 132 H POC Glucose 152 H 166 H Lactic Acid Calcium Phosphorus Magnesium AST ALT Lactate Dehydrogenase Total Bilirubin Direct Bilirubin CK-MB (CK-2) C-Reactive Protein NT-Pro-B Natriuret Pep Total Protein Albumin Arterial Blood Glucose Urine WBC (Auto) Urine Creatinine 12/25/19 12/26/19 12/26/19 18:29 00:17 00:18 WBC RBC Hgb Hct MCHC RDW MCV MCH Lymph % (Auto) [facility] % (Auto) [facility] # Eos # Lymph # (Auto) [facility] # (Auto) Eos # (Auto) Seg Neutrophils % Seg Neuts % (Manual) Baso # (Auto) Lymphocytes % (Manual) Monocytes % (Manual) Eosinophils % (Manual) Basophils % (Manual) Seg Neutrophils # Seg Neutrophils # Man Lymphocytes # (Manual) Monocytes # (Manual) Eosinophils # (Manual) Nucleated RBC % Basophils # (Manual) PT INR APTT Heparin Anti-Xa Level ABG pH POC ABG pO2 ABG pO2 ABG HCO3 ABG O2 Saturation ABG Base Excess POC ABG pCO2 ABG Hemoglobin ABG Oxyhemoglobin ABG Chloride ABG Glucose Oxyhemoglobin Sodium Potassium Chloride 97.8 L Carbon Dioxide BUN 25 H Creatinine 0.6 L Glucose 140 H POC Glucose 194 H 151 H Lactic Acid Calcium Phosphorus Magnesium AST ALT Lactate Dehydrogenase Total Bilirubin Direct Bilirubin CK-MB (CK-2) C-Reactive Protein NT-Pro-B Natriuret Pep Total Protein Albumin Arterial Blood Glucose Urine WBC (Auto) Urine Creatinine 12/26/19 12/26/19 12/26/19 05:36 11:41 17:50 WBC RBC Hgb Hct MCHC RDW MCV MCH Lymph % (Auto) [facility] % (Auto) [facility] # Eos # Lymph # (Auto) [facility] # (Auto) Eos # (Auto) Seg Neutrophils % Seg Neuts % (Manual) Baso # (Auto) Lymphocytes % (Manual) Monocytes % (Manual) Eosinophils % (Manual) Basophils % (Manual) Seg Neutrophils # Seg Neutrophils # Man Lymphocytes # (Manual) Monocytes # (Manual) Eosinophils # (Manual) Nucleated RBC % Basophils # (Manual) PT INR APTT Heparin Anti-Xa Level ABG pH POC ABG pO2 ABG pO2 ABG HCO3 ABG O2 Saturation ABG Base Excess POC ABG pCO2 ABG Hemoglobin ABG Oxyhemoglobin ABG Chloride ABG Glucose Oxyhemoglobin Sodium Potassium Chloride Carbon Dioxide BUN Creatinine Glucose POC Glucose 156 H 148 H 139 H Lactic Acid Calcium Phosphorus Magnesium AST ALT Lactate Dehydrogenase Total Bilirubin Direct Bilirubin CK-MB (CK-2) C-Reactive Protein NT-Pro-B Natriuret Pep Total Protein Albumin Arterial Blood Glucose Urine WBC (Auto) Urine Creatinine 12/26/19 12/27/19 12/27/19 23:19 05:34 12:02 WBC RBC Hgb Hct MCHC RDW MCV MCH Lymph % (Auto) [facility] % (Auto) [facility] # Eos # Lymph # (Auto) [facility] # (Auto) Eos # (Auto) Seg Neutrophils % Seg Neuts % (Manual) Baso # (Auto) Lymphocytes % (Manual) Monocytes % (Manual) Eosinophils % (Manual) Basophils % (Manual) Seg Neutrophils # Seg Neutrophils # Man Lymphocytes # (Manual) Monocytes # (Manual) Eosinophils # (Manual) Nucleated RBC % Basophils # (Manual) PT INR APTT Heparin Anti-Xa Level ABG pH POC ABG pO2 ABG pO2 ABG HCO3 ABG O2 Saturation ABG Base Excess POC ABG pCO2 ABG Hemoglobin ABG Oxyhemoglobin ABG Chloride ABG Glucose Oxyhemoglobin Sodium Potassium Chloride Carbon Dioxide BUN Creatinine Glucose POC Glucose 161 H 145 H 157 H Lactic Acid Calcium Phosphorus Magnesium AST ALT Lactate Dehydrogenase Total Bilirubin Direct Bilirubin CK-MB (CK-2) C-Reactive Protein NT-Pro-B Natriuret Pep Total Protein Albumin Arterial Blood Glucose Urine WBC (Auto) Urine Creatinine 12/27/19 12/27/19 12/27/19 17:35 20:11 23:00 WBC RBC Hgb Hct MCHC RDW MCV MCH Lymph % (Auto) [facility] % (Auto) [facility] # Eos # Lymph # (Auto) [facility] # (Auto) Eos # (Auto) Seg Neutrophils % Seg Neuts % (Manual) Baso # (Auto) Lymphocytes % (Manual) Monocytes % (Manual) Eosinophils % (Manual) Basophils % (Manual) Seg Neutrophils # Seg Neutrophils # Man Lymphocytes # (Manual) Monocytes # (Manual) Eosinophils # (Manual) Nucleated RBC % Basophils # (Manual) PT INR APTT Heparin Anti-Xa Level 0.19 L ABG pH POC ABG pO2 ABG pO2 ABG HCO3 ABG O2 Saturation ABG Base Excess POC ABG pCO2 ABG Hemoglobin ABG Oxyhemoglobin ABG Chloride ABG Glucose Oxyhemoglobin Sodium Potassium Chloride Carbon Dioxide BUN Creatinine Glucose POC Glucose 158 H 155 H Lactic Acid Calcium Phosphorus Magnesium AST ALT Lactate Dehydrogenase Total Bilirubin Direct Bilirubin CK-MB (CK-2) C-Reactive Protein NT-Pro-B Natriuret Pep Total Protein Albumin Arterial Blood Glucose Urine WBC (Auto) Urine Creatinine 12/27/19 12/28/19 12/28/19 23:45 02:41 02:41 WBC 13.0 H RBC 3.48 L Hgb 9.5 L Hct 30.6 L MCHC 31 L RDW 16.6 H MCV MCH 27 L Lymph % (Auto) 13.0 L [facility] % (Auto) 8.0 H [facility] # Eos # Lymph # (Auto) [facility] # (Auto) 1.0 H Eos # (Auto) Seg Neutrophils % 76.3 H Seg Neuts % (Manual) Baso # (Auto) Lymphocytes % (Manual) Monocytes % (Manual) Eosinophils % (Manual) Basophils % (Manual) Seg Neutrophils # 9.9 H Seg Neutrophils # Man Lymphocytes # (Manual) Monocytes # (Manual) Eosinophils # (Manual) Nucleated RBC % Basophils # (Manual) PT INR APTT Heparin Anti-Xa Level ABG pH POC ABG pO2 ABG pO2 ABG HCO3 ABG O2 Saturation ABG Base Excess POC ABG pCO2 ABG Hemoglobin ABG Oxyhemoglobin ABG Chloride ABG Glucose Oxyhemoglobin Sodium Potassium Chloride Carbon Dioxide BUN 22 H Creatinine 0.6 L Glucose 101 H POC Glucose 130 H Lactic Acid Calcium Phosphorus Magnesium AST ALT Lactate Dehydrogenase Total Bilirubin Direct Bilirubin CK-MB (CK-2) C-Reactive Protein NT-Pro-B Natriuret Pep Total Protein Albumin Arterial Blood Glucose Urine WBC (Auto) Urine Creatinine 12/28/19 12/28/19 12/28/19 06:00 12:34 18:13 WBC RBC Hgb Hct MCHC RDW MCV MCH Lymph % (Auto) [facility] % (Auto) [facility] # Eos # Lymph # (Auto) [facility] # (Auto) Eos # (Auto) Seg Neutrophils % Seg Neuts % (Manual) Baso # (Auto) Lymphocytes % (Manual) Monocytes % (Manual) Eosinophils % (Manual) Basophils % (Manual) Seg Neutrophils # Seg Neutrophils # Man Lymphocytes # (Manual) Monocytes # (Manual) Eosinophils # (Manual) Nucleated RBC % Basophils # (Manual) PT INR APTT Heparin Anti-Xa Level ABG pH POC ABG pO2 ABG pO2 ABG HCO3 ABG O2 Saturation ABG Base Excess POC ABG pCO2 ABG Hemoglobin ABG Oxyhemoglobin ABG Chloride ABG Glucose Oxyhemoglobin Sodium Potassium Chloride Carbon Dioxide BUN Creatinine Glucose POC Glucose 150 H 161 H 128 H Lactic Acid Calcium Phosphorus Magnesium AST ALT Lactate Dehydrogenase Total Bilirubin Direct Bilirubin CK-MB (CK-2) C-Reactive Protein NT-Pro-B Natriuret Pep Total Protein Albumin Arterial Blood Glucose Urine WBC (Auto) Urine Creatinine 12/28/19 12/29/19 12/29/19 23:36 05:21 11:40 WBC RBC Hgb Hct MCHC RDW MCV MCH Lymph % (Auto) [facility] % (Auto) [facility] # Eos # Lymph # (Auto) [facility] # (Auto) Eos # (Auto) Seg Neutrophils % Seg Neuts % (Manual) Baso # (Auto) Lymphocytes % (Manual) Monocytes % (Manual) Eosinophils % (Manual) Basophils % (Manual) Seg Neutrophils # Seg Neutrophils # Man Lymphocytes # (Manual) Monocytes # (Manual) Eosinophils # (Manual) Nucleated RBC % Basophils # (Manual) PT INR APTT Heparin Anti-Xa Level ABG pH POC ABG pO2 ABG pO2 ABG HCO3 ABG O2 Saturation ABG Base Excess POC ABG pCO2 ABG Hemoglobin ABG Oxyhemoglobin ABG Chloride ABG Glucose Oxyhemoglobin Sodium Potassium Chloride Carbon Dioxide BUN Creatinine Glucose POC Glucose 137 H 136 H 166 H Lactic Acid Calcium Phosphorus Magnesium AST ALT Lactate Dehydrogenase Total Bilirubin Direct Bilirubin CK-MB (CK-2) C-Reactive Protein NT-Pro-B Natriuret Pep Total Protein Albumin Arterial Blood Glucose Urine WBC (Auto) Urine Creatinine 12/29/19 12/29/19 12/29/19 17:23 19:21 23:38 WBC RBC Hgb Hct MCHC RDW MCV MCH Lymph % (Auto) [facility] % (Auto) [facility] # Eos # Lymph # (Auto) [facility] # (Auto) Eos # (Auto) Seg Neutrophils % Seg Neuts % (Manual) Baso # (Auto) Lymphocytes % (Manual) Monocytes % (Manual) Eosinophils % (Manual) Basophils % (Manual) Seg Neutrophils # Seg Neutrophils # Man Lymphocytes # (Manual) Monocytes # (Manual) Eosinophils # (Manual) Nucleated RBC % Basophils # (Manual) PT INR APTT Heparin Anti-Xa Level 0.20 L ABG pH POC ABG pO2 ABG pO2 ABG HCO3 ABG O2 Saturation ABG Base Excess POC ABG pCO2 ABG Hemoglobin ABG Oxyhemoglobin ABG Chloride ABG Glucose Oxyhemoglobin Sodium Potassium Chloride Carbon Dioxide BUN Creatinine Glucose POC Glucose 144 H 141 H Lactic Acid Calcium Phosphorus Magnesium AST ALT Lactate Dehydrogenase Total Bilirubin Direct Bilirubin CK-MB (CK-2) C-Reactive Protein NT-Pro-B Natriuret Pep Total Protein Albumin Arterial Blood Glucose Urine WBC (Auto) Urine Creatinine 12/30/19 12/30/19 12/30/19 03:58 03:58 04:59 WBC RBC 3.54 L Hgb 9.8 L Hct 30.7 L MCHC RDW 16.8 H MCV MCH Lymph % (Auto) [facility] % (Auto) [facility] # Eos # Lymph # (Auto) [facility] # (Auto) Eos # (Auto) Seg Neutrophils % Seg Neuts % (Manual) Baso # (Auto) Lymphocytes % (Manual) Monocytes % (Manual) Eosinophils % (Manual) Basophils % (Manual) Seg Neutrophils # Seg Neutrophils # Man Lymphocytes # (Manual) Monocytes # (Manual) Eosinophils # (Manual) Nucleated RBC % Basophils # (Manual) PT INR APTT Heparin Anti-Xa Level ABG pH POC ABG pO2 ABG pO2 ABG HCO3 29.8 H ABG O2 Saturation ABG Base Excess 4.8 H POC ABG pCO2 ABG Hemoglobin 11.2 L ABG Oxyhemoglobin ABG Chloride ABG Glucose Oxyhemoglobin 93.8 L Sodium Potassium Chloride 97.8 L Carbon Dioxide BUN 26 H Creatinine Glucose 168 H POC Glucose Lactic Acid Calcium Phosphorus Magnesium AST ALT Lactate Dehydrogenase Total Bilirubin Direct Bilirubin CK-MB (CK-2) C-Reactive Protein NT-Pro-B Natriuret Pep Total Protein Albumin Arterial Blood Glucose Urine WBC (Auto) Urine Creatinine 12/30/19 12/30/19 12/30/19 05:45 11:34 17:28 WBC RBC Hgb Hct MCHC RDW MCV MCH Lymph % (Auto) [facility] % (Auto) [facility] # Eos # Lymph # (Auto) [facility] # (Auto) Eos # (Auto) Seg Neutrophils % Seg Neuts % (Manual) Baso # (Auto) Lymphocytes % (Manual) Monocytes % (Manual) Eosinophils % (Manual) Basophils % (Manual) Seg Neutrophils # Seg Neutrophils # Man Lymphocytes # (Manual) Monocytes # (Manual) Eosinophils # (Manual) Nucleated RBC % Basophils # (Manual) PT INR APTT Heparin Anti-Xa Level ABG pH POC ABG pO2 ABG pO2 ABG HCO3 ABG O2 Saturation ABG Base Excess POC ABG pCO2 ABG Hemoglobin ABG Oxyhemoglobin ABG Chloride ABG Glucose Oxyhemoglobin Sodium Potassium Chloride Carbon Dioxide BUN Creatinine Glucose POC Glucose 163 H 180 H 150 H Lactic Acid Calcium Phosphorus Magnesium AST ALT Lactate Dehydrogenase Total Bilirubin Direct Bilirubin CK-MB (CK-2) C-Reactive Protein NT-Pro-B Natriuret Pep Total Protein Albumin Arterial Blood Glucose Urine WBC (Auto) Urine Creatinine 12/30/19 12/31/19 12/31/19 23:43 04:55 05:07 WBC RBC Hgb Hct MCHC RDW MCV MCH Lymph % (Auto) [facility] % (Auto) [facility] # Eos # Lymph # (Auto) [facility] # (Auto) Eos # (Auto) Seg Neutrophils % Seg Neuts % (Manual) Baso # (Auto) Lymphocytes % (Manual) Monocytes % (Manual) Eosinophils % (Manual) Basophils % (Manual) Seg Neutrophils # Seg Neutrophils # Man Lymphocytes # (Manual) Monocytes # (Manual) Eosinophils # (Manual) Nucleated RBC % Basophils # (Manual) PT INR APTT Heparin Anti-Xa Level ABG pH POC ABG pO2 ABG pO2 ABG HCO3 ABG O2 Saturation ABG Base Excess POC ABG pCO2 ABG Hemoglobin ABG Oxyhemoglobin ABG Chloride ABG Glucose Oxyhemoglobin Sodium Potassium 5.6 H D Chloride Carbon Dioxide BUN 33 H Creatinine Glucose 131 H POC Glucose 142 H 134 H Lactic Acid Calcium Phosphorus Magnesium AST ALT Lactate Dehydrogenase Total Bilirubin Direct Bilirubin CK-MB (CK-2) C-Reactive Protein NT-Pro-B Natriuret Pep Total Protein Albumin Arterial Blood Glucose Urine WBC (Auto) Urine Creatinine 12/31/19 12/31/19 12/31/19 11:30 17:19 17:36 WBC RBC Hgb Hct MCHC RDW MCV MCH Lymph % (Auto) [facility] % (Auto) [facility] # Eos # Lymph # (Auto) [facility] # (Auto) Eos # (Auto) Seg Neutrophils % Seg Neuts % (Manual) Baso # (Auto) Lymphocytes % (Manual) Monocytes % (Manual) Eosinophils % (Manual) Basophils % (Manual) Seg Neutrophils # Seg Neutrophils # Man Lymphocytes # (Manual) Monocytes # (Manual) Eosinophils # (Manual) Nucleated RBC % Basophils # (Manual) PT INR APTT Heparin Anti-Xa Level ABG pH POC ABG pO2 ABG pO2 ABG HCO3 ABG O2 Saturation ABG Base Excess POC ABG pCO2 ABG Hemoglobin ABG Oxyhemoglobin ABG Chloride ABG Glucose Oxyhemoglobin Sodium Potassium Chloride Carbon Dioxide BUN 35 H Creatinine Glucose 156 H POC Glucose 158 H 181 H Lactic Acid Calcium Phosphorus Magnesium AST ALT Lactate Dehydrogenase Total Bilirubin Direct Bilirubin CK-MB (CK-2) C-Reactive Protein NT-Pro-B Natriuret Pep Total Protein Albumin Arterial Blood Glucose Urine WBC (Auto) Urine Creatinine 12/31/19 12/31/19 12/31/19 18:16 19:41 21:53 WBC RBC Hgb Hct MCHC RDW MCV MCH Lymph % (Auto) [facility] % (Auto) [facility] # Eos # Lymph # (Auto) [facility] # (Auto) Eos # (Auto) Seg Neutrophils % Seg Neuts % (Manual) Baso # (Auto) Lymphocytes % (Manual) Monocytes % (Manual) Eosinophils % (Manual) Basophils % (Manual) Seg Neutrophils # Seg Neutrophils # Man Lymphocytes # (Manual) Monocytes # (Manual) Eosinophils # (Manual) Nucleated RBC % Basophils # (Manual) PT INR APTT Heparin Anti-Xa Level 0.20 L ABG pH POC ABG pO2 ABG pO2 ABG HCO3 ABG O2 Saturation ABG Base Excess POC ABG pCO2 ABG Hemoglobin ABG Oxyhemoglobin ABG Chloride ABG Glucose Oxyhemoglobin Sodium Potassium Chloride Carbon Dioxide BUN 34 H Creatinine Glucose 169 H POC Glucose 141 H Lactic Acid Calcium Phosphorus Magnesium AST ALT Lactate Dehydrogenase Total Bilirubin Direct Bilirubin CK-MB (CK-2) C-Reactive Protein NT-Pro-B Natriuret Pep Total Protein Albumin Arterial Blood Glucose Urine WBC (Auto) Urine Creatinine 12/31/19 01/01/20 01/01/20 23:51 05:17 10:40 WBC RBC Hgb Hct MCHC RDW MCV MCH Lymph % (Auto) [facility] % (Auto) [facility] # Eos # Lymph # (Auto) [facility] # (Auto) Eos # (Auto) Seg Neutrophils % Seg Neuts % (Manual) Baso # (Auto) Lymphocytes % (Manual) Monocytes % (Manual) Eosinophils % (Manual) Basophils % (Manual) Seg Neutrophils # Seg Neutrophils # Man Lymphocytes # (Manual) Monocytes # (Manual) Eosinophils # (Manual) Nucleated RBC % Basophils # (Manual) PT INR APTT Heparin Anti-Xa Level ABG pH POC ABG pO2 ABG pO2 ABG HCO3 ABG O2 Saturation ABG Base Excess POC ABG pCO2 ABG Hemoglobin ABG Oxyhemoglobin ABG Chloride ABG Glucose Oxyhemoglobin Sodium Potassium Chloride Carbon Dioxide BUN 31 H Creatinine 0.7 L Glucose 137 H POC Glucose 131 H 155 H Lactic Acid Calcium Phosphorus Magnesium AST 73 H ALT 97 H Lactate Dehydrogenase Total Bilirubin Direct Bilirubin CK-MB (CK-2) C-Reactive Protein NT-Pro-B Natriuret Pep 3866 H Total Protein Albumin 2.8 L Arterial Blood Glucose Urine WBC (Auto) Urine Creatinine 01/01/20 01/01/20 01/01/20 12:26 15:33 17:53 WBC 14.3 H RBC 3.35 L Hgb 9.1 L Hct 28.8 L MCHC RDW 17.0 H MCV MCH 27 L Lymph % (Auto) 7.0 L [facility] % (Auto) 7.6 H [facility] # Eos # Lymph # (Auto) 1.0 L [facility] # (Auto) 1.1 H Eos # (Auto) Seg Neutrophils % 83.3 H Seg Neuts % (Manual) Baso # (Auto) Lymphocytes % (Manual) Monocytes % (Manual) Eosinophils % (Manual) Basophils % (Manual) Seg Neutrophils # 12.0 H Seg Neutrophils # Man Lymphocytes # (Manual) Monocytes # (Manual) Eosinophils # (Manual) Nucleated RBC % Basophils # (Manual) PT INR APTT Heparin Anti-Xa Level ABG pH POC ABG pO2 ABG pO2 ABG HCO3 ABG O2 Saturation ABG Base Excess POC ABG pCO2 ABG Hemoglobin ABG Oxyhemoglobin ABG Chloride ABG Glucose Oxyhemoglobin Sodium Potassium Chloride Carbon Dioxide BUN Creatinine Glucose POC Glucose 128 H 128 H Lactic Acid Calcium Phosphorus Magnesium AST ALT Lactate Dehydrogenase Total Bilirubin Direct Bilirubin CK-MB (CK-2) C-Reactive Protein NT-Pro-B Natriuret Pep Total Protein Albumin Arterial Blood Glucose Urine WBC (Auto) Urine Creatinine 01/01/20 01/02/20 01/02/20 23:04 05:39 07:00 WBC RBC Hgb Hct MCHC RDW MCV MCH Lymph % (Auto) [facility] % (Auto) [facility] # Eos # Lymph # (Auto) [facility] # (Auto) Eos # (Auto) Seg Neutrophils % Seg Neuts % (Manual) Baso # (Auto) Lymphocytes % (Manual) Monocytes % (Manual) Eosinophils % (Manual) Basophils % (Manual) Seg Neutrophils # Seg Neutrophils # Man Lymphocytes # (Manual) Monocytes # (Manual) Eosinophils # (Manual) Nucleated RBC % Basophils # (Manual) PT INR APTT Heparin Anti-Xa Level 0.13 L ABG pH POC ABG pO2 ABG pO2 ABG HCO3 ABG O2 Saturation ABG Base Excess POC ABG pCO2 ABG Hemoglobin ABG Oxyhemoglobin ABG Chloride ABG Glucose Oxyhemoglobin Sodium Potassium Chloride Carbon Dioxide BUN Creatinine Glucose POC Glucose 120 H 169 H Lactic Acid Calcium Phosphorus Magnesium AST ALT Lactate Dehydrogenase Total Bilirubin Direct Bilirubin CK-MB (CK-2) C-Reactive Protein NT-Pro-B Natriuret Pep Total Protein Albumin Arterial Blood Glucose Urine WBC (Auto) Urine Creatinine 01/02/20 01/02/20 01/02/20 12:15 14:06 17:58 WBC RBC Hgb Hct MCHC RDW MCV MCH Lymph % (Auto) [facility] % (Auto) [facility] # Eos # Lymph # (Auto) [facility] # (Auto) Eos # (Auto) Seg Neutrophils % Seg Neuts % (Manual) Baso # (Auto) Lymphocytes % (Manual) Monocytes % (Manual) Eosinophils % (Manual) Basophils % (Manual) Seg Neutrophils # Seg Neutrophils # Man Lymphocytes # (Manual) Monocytes # (Manual) Eosinophils # (Manual) Nucleated RBC % Basophils # (Manual) PT INR APTT Heparin Anti-Xa Level < 0.10 L ABG pH POC ABG pO2 ABG pO2 ABG HCO3 ABG O2 Saturation ABG Base Excess POC ABG pCO2 ABG Hemoglobin ABG Oxyhemoglobin ABG Chloride ABG Glucose Oxyhemoglobin Sodium Potassium Chloride Carbon Dioxide BUN Creatinine Glucose POC Glucose 190 H 198 H Lactic Acid Calcium Phosphorus Magnesium AST ALT Lactate Dehydrogenase Total Bilirubin Direct Bilirubin CK-MB (CK-2) C-Reactive Protein NT-Pro-B Natriuret Pep Total Protein Albumin Arterial Blood Glucose Urine WBC (Auto) Urine Creatinine 01/02/20 01/02/20 01/03/20 21:43 23:33 05:42 WBC RBC Hgb Hct MCHC RDW MCV MCH Lymph % (Auto) [facility] % (Auto) [facility] # Eos # Lymph # (Auto) [facility] # (Auto) Eos # (Auto) Seg Neutrophils % Seg Neuts % (Manual) Baso # (Auto) Lymphocytes % (Manual) Monocytes % (Manual) Eosinophils % (Manual) Basophils % (Manual) Seg Neutrophils # Seg Neutrophils # Man Lymphocytes # (Manual) Monocytes # (Manual) Eosinophils # (Manual) Nucleated RBC % Basophils # (Manual) PT INR APTT Heparin Anti-Xa Level 0.10 L ABG pH POC ABG pO2 ABG pO2 ABG HCO3 ABG O2 Saturation ABG Base Excess POC ABG pCO2 ABG Hemoglobin ABG Oxyhemoglobin ABG Chloride ABG Glucose Oxyhemoglobin Sodium Potassium Chloride Carbon Dioxide BUN Creatinine Glucose POC Glucose 180 H 163 H Lactic Acid Calcium Phosphorus Magnesium AST ALT Lactate Dehydrogenase Total Bilirubin Direct Bilirubin CK-MB (CK-2) C-Reactive Protein NT-Pro-B Natriuret Pep Total Protein Albumin Arterial Blood Glucose Urine WBC (Auto) Urine Creatinine 10/11/20 10/11/20 10/11/20 06:50 07:25 07:45 WBC 12.1 H RBC 3.35 L Hgb 9.0 L Hct 28.9 L MCHC 31 L RDW 16.6 H MCV MCH 27 L Lymph % (Auto) 13.0 L [facility] % (Auto) 8.6 H [facility] # Eos # Lymph # (Auto) [facility] # (Auto) 1.0 H Eos # (Auto) Seg Neutrophils % 75.9 H Seg Neuts % (Manual) Baso # (Auto) Lymphocytes % (Manual) Monocytes % (Manual) Eosinophils % (Manual) Basophils % (Manual) Seg Neutrophils # 9.2 H Seg Neutrophils # Man Lymphocytes # (Manual) Monocytes # (Manual) Eosinophils # (Manual) Nucleated RBC % Basophils # (Manual) PT INR APTT Heparin Anti-Xa Level 0.29 L ABG pH POC ABG pO2 ABG pO2 ABG HCO3 ABG O2 Saturation ABG Base Excess POC ABG pCO2 ABG Hemoglobin ABG Oxyhemoglobin ABG Chloride ABG Glucose Oxyhemoglobin Sodium Potassium 3.3 L D Chloride Carbon Dioxide 35 H D BUN 23 H Creatinine 0.6 L Glucose 149 H POC Glucose Lactic Acid Calcium Phosphorus Magnesium AST ALT 88 H Lactate Dehydrogenase Total Bilirubin Direct Bilirubin CK-MB (CK-2) C-Reactive Protein NT-Pro-B Natriuret Pep Total Protein 6.2 L Albumin 2.9 L Arterial Blood Glucose Urine WBC (Auto) Urine Creatinine 01/03/20 01/03/20 01/03/20 12:05 17:42 18:30 WBC RBC Hgb Hct MCHC RDW MCV MCH Lymph % (Auto) [facility] % (Auto) [facility] # Eos # Lymph # (Auto) [facility] # (Auto) Eos # (Auto) Seg Neutrophils % Seg Neuts % (Manual) Baso # (Auto) Lymphocytes % (Manual) Monocytes % (Manual) Eosinophils % (Manual) Basophils % (Manual) Seg Neutrophils # Seg Neutrophils # Man Lymphocytes # (Manual) Monocytes # (Manual) Eosinophils # (Manual) Nucleated RBC % Basophils # (Manual) PT INR APTT Heparin Anti-Xa Level ABG pH POC ABG pO2 ABG pO2 70.7 L ABG HCO3 36.1 H ABG O2 Saturation 94.4 L ABG Base Excess 10.0 H POC ABG pCO2 ABG Hemoglobin 9.7 L ABG Oxyhemoglobin ABG Chloride ABG Glucose Oxyhemoglobin 91.8 L Sodium Potassium Chloride Carbon Dioxide BUN Creatinine Glucose POC Glucose 128 H 132 H Lactic Acid Calcium Phosphorus Magnesium AST ALT Lactate Dehydrogenase Total Bilirubin Direct Bilirubin CK-MB (CK-2) C-Reactive Protein NT-Pro-B Natriuret Pep Total Protein Albumin Arterial Blood Glucose Urine WBC (Auto) Urine Creatinine 01/04/20 01/04/20 01/04/20 00:10 04:26 05:23 WBC RBC Hgb Hct MCHC RDW MCV MCH Lymph % (Auto) [facility] % (Auto) [facility] # Eos # Lymph # (Auto) [facility] # (Auto) Eos # (Auto) Seg Neutrophils % Seg Neuts % (Manual) Baso # (Auto) Lymphocytes % (Manual) Monocytes % (Manual) Eosinophils % (Manual) Basophils % (Manual) Seg Neutrophils # Seg Neutrophils # Man Lymphocytes # (Manual) Monocytes # (Manual) Eosinophils # (Manual) Nucleated RBC % Basophils # (Manual) PT INR APTT Heparin Anti-Xa Level 0.16 L ABG pH POC ABG pO2 ABG pO2 ABG HCO3 ABG O2 Saturation ABG Base Excess POC ABG pCO2 ABG Hemoglobin ABG Oxyhemoglobin ABG Chloride ABG Glucose Oxyhemoglobin Sodium Potassium Chloride Carbon Dioxide BUN Creatinine Glucose POC Glucose 121 H 119 H Lactic Acid Calcium Phosphorus Magnesium AST ALT Lactate Dehydrogenase Total Bilirubin Direct Bilirubin CK-MB (CK-2) C-Reactive Protein NT-Pro-B Natriuret Pep Total Protein Albumin Arterial Blood Glucose Urine WBC (Auto) Urine Creatinine 01/04/20 01/04/20 01/04/20 09:50 09:50 12:18 WBC 15.4 H RBC 3.30 L Hgb 8.7 L Hct 28.2 L MCHC 31 L RDW 17.0 H MCV MCH 26 L Lymph % (Auto) [facility] % (Auto) 7.6 H [facility] # Eos # Lymph # (Auto) [facility] # (Auto) 1.2 H Eos # (Auto) Seg Neutrophils % 75.4 H Seg Neuts % (Manual) Baso # (Auto) Lymphocytes % (Manual) Monocytes % (Manual) Eosinophils % (Manual) Basophils % (Manual) Seg Neutrophils # 11.6 H Seg Neutrophils # Man Lymphocytes # (Manual) Monocytes # (Manual) Eosinophils # (Manual) Nucleated RBC % Basophils # (Manual) PT INR APTT Heparin Anti-Xa Level ABG pH POC ABG pO2 ABG pO2 ABG HCO3 ABG O2 Saturation ABG Base Excess POC ABG pCO2 ABG Hemoglobin ABG Oxyhemoglobin ABG Chloride ABG Glucose Oxyhemoglobin Sodium 148 H Potassium 3.5 L Chloride Carbon Dioxide 32 H BUN Creatinine 0.6 L Glucose 114 H POC Glucose 111 H Lactic Acid Calcium Phosphorus Magnesium AST ALT 59 H Lactate Dehydrogenase Total Bilirubin Direct Bilirubin CK-MB (CK-2) C-Reactive Protein NT-Pro-B Natriuret Pep Total Protein Albumin 2.6 L Arterial Blood Glucose Urine WBC (Auto) Urine Creatinine 01/05/20 01/05/20 01/05/20 04:05 04:05 05:19 WBC 11.7 H RBC 3.50 L Hgb 9.3 L Hct 29.9 L MCHC 31 L RDW 16.6 H MCV MCH 27 L Lymph % (Auto) 13.1 L [facility] % (Auto) 9.7 H [facility] # Eos # Lymph # (Auto) [facility] # (Auto) 1.1 H Eos # (Auto) Seg Neutrophils % 74.0 H Seg Neuts % (Manual) Baso # (Auto) Lymphocytes % (Manual) Monocytes % (Manual) Eosinophils % (Manual) Basophils % (Manual) Seg Neutrophils # 8.6 H Seg Neutrophils # Man Lymphocytes # (Manual) Monocytes # (Manual) Eosinophils # (Manual) Nucleated RBC % Basophils # (Manual) PT INR APTT Heparin Anti-Xa Level ABG pH POC ABG pO2 ABG pO2 ABG HCO3 ABG O2 Saturation ABG Base Excess POC ABG pCO2 ABG Hemoglobin ABG Oxyhemoglobin ABG Chloride ABG Glucose Oxyhemoglobin Sodium 151 H Potassium Chloride Carbon Dioxide 34 H BUN Creatinine 0.7 L Glucose POC Glucose 112 H Lactic Acid Calcium Phosphorus Magnesium AST ALT 59 H Lactate Dehydrogenase Total Bilirubin Direct Bilirubin CK-MB (CK-2) C-Reactive Protein NT-Pro-B Natriuret Pep Total Protein 5.8 L Albumin 2.6 L Arterial Blood Glucose Urine WBC (Auto) Urine Creatinine 01/05/20 01/06/20 01/06/20 16:04 00:23 04:44 WBC RBC 3.36 L Hgb 8.9 L Hct 28.7 L MCHC 31 L RDW 16.9 H MCV MCH 26 L Lymph % (Auto) [facility] % (Auto) 9.4 H [facility] # Eos # Lymph # (Auto) [facility] # (Auto) Eos # (Auto) Seg Neutrophils % Seg Neuts % (Manual) Baso # (Auto) Lymphocytes % (Manual) Monocytes % (Manual) Eosinophils % (Manual) Basophils % (Manual) Seg Neutrophils # Seg Neutrophils # Man Lymphocytes # (Manual) Monocytes # (Manual) Eosinophils # (Manual) Nucleated RBC % Basophils # (Manual) PT INR APTT Heparin Anti-Xa Level ABG pH POC ABG pO2 ABG pO2 ABG HCO3 ABG O2 Saturation ABG Base Excess POC ABG pCO2 ABG Hemoglobin ABG Oxyhemoglobin ABG Chloride ABG Glucose Oxyhemoglobin Sodium 151 H Potassium 3.2 L Chloride Carbon Dioxide 34 H BUN Creatinine 0.6 L Glucose POC Glucose 107 H Lactic Acid Calcium Phosphorus Magnesium AST ALT Lactate Dehydrogenase Total Bilirubin Direct Bilirubin CK-MB (CK-2) C-Reactive Protein NT-Pro-B Natriuret Pep Total Protein Albumin Arterial Blood Glucose Urine WBC (Auto) Urine Creatinine 01/06/20 01/06/20 01/06/20 04:44 05:33 12:04 WBC RBC Hgb Hct MCHC RDW MCV MCH Lymph % (Auto) [facility] % (Auto) [facility] # Eos # Lymph # (Auto) [facility] # (Auto) Eos # (Auto) Seg Neutrophils % Seg Neuts % (Manual) Baso # (Auto) Lymphocytes % (Manual) Monocytes % (Manual) Eosinophils % (Manual) Basophils % (Manual) Seg Neutrophils # Seg Neutrophils # Man Lymphocytes # (Manual) Monocytes # (Manual) Eosinophils # (Manual) Nucleated RBC % Basophils # (Manual) PT INR APTT Heparin Anti-Xa Level ABG pH POC ABG pO2 ABG pO2 ABG HCO3 ABG O2 Saturation ABG Base Excess POC ABG pCO2 ABG Hemoglobin ABG Oxyhemoglobin ABG Chloride ABG Glucose Oxyhemoglobin Sodium 151 H Potassium 3.4 L Chloride Carbon Dioxide 33 H BUN Creatinine 0.6 L Glucose 118 H POC Glucose 118 H 123 H Lactic Acid Calcium Phosphorus Magnesium AST ALT Lactate Dehydrogenase Total Bilirubin Direct Bilirubin CK-MB (CK-2) C-Reactive Protein NT-Pro-B Natriuret Pep Total Protein 6.2 L Albumin 2.6 L Arterial Blood Glucose Urine WBC (Auto) Urine Creatinine 01/06/20 01/07/20 01/07/20 17:54 00:06 04:10 WBC RBC 3.42 L Hgb 8.9 L Hct 29.0 L MCHC 31 L RDW 17.1 H MCV MCH 26 L Lymph % (Auto) [facility] % (Auto) 8.4 H [facility] # Eos # Lymph # (Auto) [facility] # (Auto) Eos # (Auto) Seg Neutrophils % Seg Neuts % (Manual) Baso # (Auto) Lymphocytes % (Manual) Monocytes % (Manual) Eosinophils % (Manual) Basophils % (Manual) Seg Neutrophils # Seg Neutrophils # Man Lymphocytes # (Manual) Monocytes # (Manual) Eosinophils # (Manual) Nucleated RBC % Basophils # (Manual) PT INR APTT Heparin Anti-Xa Level ABG pH POC ABG pO2 ABG pO2 ABG HCO3 ABG O2 Saturation ABG Base Excess POC ABG pCO2 ABG Hemoglobin ABG Oxyhemoglobin ABG Chloride ABG Glucose Oxyhemoglobin Sodium Potassium Chloride Carbon Dioxide BUN Creatinine Glucose POC Glucose 112 H 126 H Lactic Acid Calcium Phosphorus Magnesium AST ALT Lactate Dehydrogenase Total Bilirubin Direct Bilirubin CK-MB (CK-2) C-Reactive Protein NT-Pro-B Natriuret Pep Total Protein Albumin Arterial Blood Glucose Urine WBC (Auto) Urine Creatinine 01/07/20 01/07/20 01/07/20 04:10 05:59 12:27 WBC RBC Hgb Hct MCHC RDW MCV MCH Lymph % (Auto) [facility] % (Auto) [facility] # Eos # Lymph # (Auto) [facility] # (Auto) Eos # (Auto) Seg Neutrophils % Seg Neuts % (Manual) Baso # (Auto) Lymphocytes % (Manual) Monocytes % (Manual) Eosinophils % (Manual) Basophils % (Manual) Seg Neutrophils # Seg Neutrophils # Man Lymphocytes # (Manual) Monocytes # (Manual) Eosinophils # (Manual) Nucleated RBC % Basophils # (Manual) PT INR APTT Heparin Anti-Xa Level ABG pH POC ABG pO2 ABG pO2 ABG HCO3 ABG O2 Saturation ABG Base Excess POC ABG pCO2 ABG Hemoglobin ABG Oxyhemoglobin ABG Chloride ABG Glucose Oxyhemoglobin Sodium 153 H Potassium 3.5 L Chloride Carbon Dioxide 34 H BUN Creatinine 0.6 L Glucose 121 H POC Glucose 121 H 126 H Lactic Acid Calcium Phosphorus Magnesium AST ALT Lactate Dehydrogenase Total Bilirubin Direct Bilirubin CK-MB (CK-2) C-Reactive Protein NT-Pro-B Natriuret Pep Total Protein 5.9 L Albumin 2.4 L Arterial Blood Glucose Urine WBC (Auto) Urine Creatinine 01/07/20 01/08/20 01/08/20 18:12 00:03 05:41 WBC RBC Hgb Hct MCHC RDW MCV MCH Lymph % (Auto) [facility] % (Auto) [facility] # Eos # Lymph # (Auto) [facility] # (Auto) Eos # (Auto) Seg Neutrophils % Seg Neuts % (Manual) Baso # (Auto) Lymphocytes % (Manual) Monocytes % (Manual) Eosinophils % (Manual) Basophils % (Manual) Seg Neutrophils # Seg Neutrophils # Man Lymphocytes # (Manual) Monocytes # (Manual) Eosinophils # (Manual) Nucleated RBC % Basophils # (Manual) PT INR APTT Heparin Anti-Xa Level ABG pH POC ABG pO2 ABG pO2 ABG HCO3 ABG O2 Saturation ABG Base Excess POC ABG pCO2 ABG Hemoglobin ABG Oxyhemoglobin ABG Chloride ABG Glucose Oxyhemoglobin Sodium Potassium Chloride Carbon Dioxide BUN Creatinine Glucose POC Glucose 124 H 130 H 138 H Lactic Acid Calcium Phosphorus Magnesium AST ALT Lactate Dehydrogenase Total Bilirubin Direct Bilirubin CK-MB (CK-2) C-Reactive Protein NT-Pro-B Natriuret Pep Total Protein Albumin Arterial Blood Glucose Urine WBC (Auto) Urine Creatinine 01/08/20 01/08/20 01/08/20 09:28 11:42 18:21 WBC RBC Hgb Hct MCHC RDW MCV MCH Lymph % (Auto) [facility] % (Auto) [facility] # Eos # Lymph # (Auto) [facility] # (Auto) Eos # (Auto) Seg Neutrophils % Seg Neuts % (Manual) Baso # (Auto) Lymphocytes % (Manual) Monocytes % (Manual) Eosinophils % (Manual) Basophils % (Manual) Seg Neutrophils # Seg Neutrophils # Man Lymphocytes # (Manual) Monocytes # (Manual) Eosinophils # (Manual) Nucleated RBC % Basophils # (Manual) PT INR APTT Heparin Anti-Xa Level ABG pH POC ABG pO2 ABG pO2 ABG HCO3 ABG O2 Saturation ABG Base Excess POC ABG pCO2 ABG Hemoglobin ABG Oxyhemoglobin ABG Chloride ABG Glucose Oxyhemoglobin Sodium Potassium Chloride Carbon Dioxide BUN Creatinine Glucose POC Glucose 181 H 150 H 129 H Lactic Acid Calcium Phosphorus Magnesium AST ALT Lactate Dehydrogenase Total Bilirubin Direct Bilirubin CK-MB (CK-2) C-Reactive Protein NT-Pro-B Natriuret Pep Total Protein Albumin Arterial Blood Glucose Urine WBC (Auto) Urine Creatinine 01/08/20 01/08/20 01/09/20 19:25 23:55 04:11 WBC RBC 3.43 L Hgb 8.9 L Hct 28.7 L MCHC 31 L RDW 17.6 H MCV MCH 26 L Lymph % (Auto) [facility] % (Auto) 8.6 H [facility] # Eos # Lymph # (Auto) [facility] # (Auto) Eos # (Auto) Seg Neutrophils % Seg Neuts % (Manual) Baso # (Auto) Lymphocytes % (Manual) Monocytes % (Manual) Eosinophils % (Manual) Basophils % (Manual) Seg Neutrophils # Seg Neutrophils # Man Lymphocytes # (Manual) Monocytes # (Manual) Eosinophils # (Manual) Nucleated RBC % Basophils # (Manual) PT INR APTT Heparin Anti-Xa Level ABG pH POC ABG pO2 ABG pO2 ABG HCO3 ABG O2 Saturation ABG Base Excess POC ABG pCO2 ABG Hemoglobin ABG Oxyhemoglobin ABG Chloride ABG Glucose Oxyhemoglobin Sodium Potassium Chloride Carbon Dioxide BUN Creatinine 0.7 L Glucose 117 H POC Glucose 132 H Lactic Acid Calcium Phosphorus Magnesium AST ALT Lactate Dehydrogenase Total Bilirubin Direct Bilirubin CK-MB (CK-2) C-Reactive Protein NT-Pro-B Natriuret Pep Total Protein Albumin Arterial Blood Glucose Urine WBC (Auto) Urine Creatinine 01/09/20 01/09/20 01/09/20 04:11 05:38 22:58 WBC RBC Hgb Hct MCHC RDW MCV MCH Lymph % (Auto) [facility] % (Auto) [facility] # Eos # Lymph # (Auto) [facility] # (Auto) Eos # (Auto) Seg Neutrophils % Seg Neuts % (Manual) Baso # (Auto) Lymphocytes % (Manual) Monocytes % (Manual) Eosinophils % (Manual) Basophils % (Manual) Seg Neutrophils # Seg Neutrophils # Man Lymphocytes # (Manual) Monocytes # (Manual) Eosinophils # (Manual) Nucleated RBC % Basophils # (Manual) PT INR APTT Heparin Anti-Xa Level ABG pH POC ABG pO2 ABG pO2 ABG HCO3 ABG O2 Saturation ABG Base Excess POC ABG pCO2 ABG Hemoglobin ABG Oxyhemoglobin ABG Chloride ABG Glucose Oxyhemoglobin Sodium 147 H Potassium 3.3 L D Chloride Carbon Dioxide 32 H BUN Creatinine 0.6 L Glucose 106 H POC Glucose 107 H 113 H Lactic Acid Calcium Phosphorus Magnesium AST ALT Lactate Dehydrogenase Total Bilirubin Direct Bilirubin CK-MB (CK-2) C-Reactive Protein NT-Pro-B Natriuret Pep Total Protein Albumin Arterial Blood Glucose Urine WBC (Auto) Urine Creatinine 01/10/20 01/10/20 01/10/20 04:05 11:36 17:54 WBC RBC Hgb Hct MCHC RDW MCV MCH Lymph % (Auto) [facility] % (Auto) [facility] # Eos # Lymph # (Auto) [facility] # (Auto) Eos # (Auto) Seg Neutrophils % Seg Neuts % (Manual) Baso # (Auto) Lymphocytes % (Manual) Monocytes % (Manual) Eosinophils % (Manual) Basophils % (Manual) Seg Neutrophils # Seg Neutrophils # Man Lymphocytes # (Manual) Monocytes # (Manual) Eosinophils # (Manual) Nucleated RBC % Basophils # (Manual) PT INR APTT Heparin Anti-Xa Level ABG pH POC ABG pO2 ABG pO2 ABG HCO3 ABG O2 Saturation ABG Base Excess POC ABG pCO2 ABG Hemoglobin ABG Oxyhemoglobin ABG Chloride ABG Glucose Oxyhemoglobin Sodium Potassium Chloride Carbon Dioxide BUN Creatinine 0.7 L Glucose 110 H POC Glucose 129 H 117 H Lactic Acid Calcium Phosphorus Magnesium AST ALT Lactate Dehydrogenase Total Bilirubin Direct Bilirubin CK-MB (CK-2) C-Reactive Protein NT-Pro-B Natriuret Pep Total Protein Albumin Arterial Blood Glucose Urine WBC (Auto) Urine Creatinine 01/10/20 01/11/20 01/11/20 23:52 03:19 12:09 WBC RBC Hgb Hct MCHC RDW MCV MCH Lymph % (Auto) [facility] % (Auto) [facility] # Eos # Lymph # (Auto) [facility] # (Auto) Eos # (Auto) Seg Neutrophils % Seg Neuts % (Manual) Baso # (Auto) Lymphocytes % (Manual) Monocytes % (Manual) Eosinophils % (Manual) Basophils % (Manual) Seg Neutrophils # Seg Neutrophils # Man Lymphocytes # (Manual) Monocytes # (Manual) Eosinophils # (Manual) Nucleated RBC % Basophils # (Manual) PT INR APTT Heparin Anti-Xa Level ABG pH POC ABG pO2 ABG pO2 ABG HCO3 ABG O2 Saturation ABG Base Excess POC ABG pCO2 ABG Hemoglobin ABG Oxyhemoglobin ABG Chloride ABG Glucose Oxyhemoglobin Sodium Potassium Chloride Carbon Dioxide BUN Creatinine Glucose POC Glucose 117 H 136 H 115 H Lactic Acid Calcium Phosphorus Magnesium AST ALT Lactate Dehydrogenase Total Bilirubin Direct Bilirubin CK-MB (CK-2) C-Reactive Protein NT-Pro-B Natriuret Pep Total Protein Albumin Arterial Blood Glucose Urine WBC (Auto) Urine Creatinine 01/11/20 01/11/20 01/12/20 18:27 23:28 00:23 WBC RBC Hgb 9.8 L Hct 31.6 L MCHC 31 L RDW 17.8 H MCV 83 L MCH 26 L Lymph % (Auto) [facility] % (Auto) 8.0 H [facility] # Eos # Lymph # (Auto) [facility] # (Auto) Eos # (Auto) Seg Neutrophils % Seg Neuts % (Manual) Baso # (Auto) Lymphocytes % (Manual) Monocytes % (Manual) Eosinophils % (Manual) Basophils % (Manual) Seg Neutrophils # Seg Neutrophils # Man Lymphocytes # (Manual) Monocytes # (Manual) Eosinophils # (Manual) Nucleated RBC % Basophils # (Manual) PT INR APTT Heparin Anti-Xa Level ABG pH POC ABG pO2 ABG pO2 ABG HCO3 ABG O2 Saturation ABG Base Excess POC ABG pCO2 ABG Hemoglobin ABG Oxyhemoglobin ABG Chloride ABG Glucose Oxyhemoglobin Sodium Potassium Chloride Carbon Dioxide BUN Creatinine Glucose POC Glucose 118 H 122 H Lactic Acid Calcium Phosphorus Magnesium AST ALT Lactate Dehydrogenase Total Bilirubin Direct Bilirubin CK-MB (CK-2) C-Reactive Protein NT-Pro-B Natriuret Pep Total Protein Albumin Arterial Blood Glucose Urine WBC (Auto) Urine Creatinine 01/12/20 01/12/20 01/12/20 00:23 04:18 04:18 WBC RBC Hgb 9.6 L Hct 30.9 L MCHC 31 L RDW 17.3 H MCV 81 L MCH 25 L Lymph % (Auto) [facility] % (Auto) [facility] # Eos # Lymph # (Auto) [facility] # (Auto) Eos # (Auto) Seg Neutrophils % Seg Neuts % (Manual) Baso # (Auto) Lymphocytes % (Manual) Monocytes % (Manual) Eosinophils % (Manual) Basophils % (Manual) Seg Neutrophils # Seg Neutrophils # Man Lymphocytes # (Manual) Monocytes # (Manual) Eosinophils # (Manual) Nucleated RBC % Basophils # (Manual) PT INR APTT Heparin Anti-Xa Level ABG pH POC ABG pO2 ABG pO2 ABG HCO3 ABG O2 Saturation ABG Base Excess POC ABG pCO2 ABG Hemoglobin ABG Oxyhemoglobin ABG Chloride ABG Glucose Oxyhemoglobin Sodium Potassium Chloride Carbon Dioxide BUN Creatinine 0.7 L 0.7 L Glucose 111 H 108 H POC Glucose Lactic Acid Calcium Phosphorus Magnesium AST ALT Lactate Dehydrogenase Total Bilirubin Direct Bilirubin CK-MB (CK-2) C-Reactive Protein NT-Pro-B Natriuret Pep Total Protein Albumin 2.6 L Arterial Blood Glucose Urine WBC (Auto) Urine Creatinine 01/12/20 01/12/20 01/12/20 06:03 12:27 13:58 WBC RBC Hgb Hct MCHC RDW MCV MCH Lymph % (Auto) [facility] % (Auto) [facility] # Eos # Lymph # (Auto) [facility] # (Auto) Eos # (Auto) Seg Neutrophils % Seg Neuts % (Manual) Baso # (Auto) Lymphocytes % (Manual) Monocytes % (Manual) Eosinophils % (Manual) Basophils % (Manual) Seg Neutrophils # Seg Neutrophils # Man Lymphocytes # (Manual) Monocytes # (Manual) Eosinophils # (Manual) Nucleated RBC % Basophils # (Manual) PT INR APTT Heparin Anti-Xa Level ABG pH 7.453 H POC ABG pO2 76.6 L ABG pO2 ABG HCO3 ABG O2 Saturation ABG Base Excess POC ABG pCO2 ABG Hemoglobin 10.3 L ABG Oxyhemoglobin ABG Chloride ABG Glucose 99 H Oxyhemoglobin Sodium Potassium Chloride Carbon Dioxide BUN Creatinine Glucose POC Glucose 128 H 121 H Lactic Acid Calcium Phosphorus Magnesium AST ALT Lactate Dehydrogenase Total Bilirubin Direct Bilirubin CK-MB (CK-2) C-Reactive Protein NT-Pro-B Natriuret Pep Total Protein Albumin Arterial Blood Glucose 99 H Urine WBC (Auto) Urine Creatinine 01/12/20 01/13/20 01/13/20 18:24 12:01 17:46 WBC RBC Hgb Hct MCHC RDW MCV MCH Lymph % (Auto) [facility] % (Auto) [facility] # Eos # Lymph # (Auto) [facility] # (Auto) Eos # (Auto) Seg Neutrophils % Seg Neuts % (Manual) Baso # (Auto) Lymphocytes % (Manual) Monocytes % (Manual) Eosinophils % (Manual) Basophils % (Manual) Seg Neutrophils # Seg Neutrophils # Man Lymphocytes # (Manual) Monocytes # (Manual) Eosinophils # (Manual) Nucleated RBC % Basophils # (Manual) PT INR APTT Heparin Anti-Xa Level ABG pH POC ABG pO2 ABG pO2 ABG HCO3 ABG O2 Saturation ABG Base Excess POC ABG pCO2 ABG Hemoglobin ABG Oxyhemoglobin ABG Chloride ABG Glucose Oxyhemoglobin Sodium Potassium Chloride Carbon Dioxide BUN Creatinine Glucose POC Glucose 119 H 107 H 124 H Lactic Acid Calcium Phosphorus Magnesium AST ALT Lactate Dehydrogenase Total Bilirubin Direct Bilirubin CK-MB (CK-2) C-Reactive Protein NT-Pro-B Natriuret Pep Total Protein Albumin Arterial Blood Glucose Urine WBC (Auto) Urine Creatinine 01/13/20 01/14/20 01/14/20 20:40 00:10 05:33 WBC RBC Hgb Hct MCHC RDW MCV MCH Lymph % (Auto) [facility] % (Auto) [facility] # Eos # Lymph # (Auto) [facility] # (Auto) Eos # (Auto) Seg Neutrophils % Seg Neuts % (Manual) Baso # (Auto) Lymphocytes % (Manual) Monocytes % (Manual) Eosinophils % (Manual) Basophils % (Manual) Seg Neutrophils # Seg Neutrophils # Man Lymphocytes # (Manual) Monocytes # (Manual) Eosinophils # (Manual) Nucleated RBC % Basophils # (Manual) PT INR APTT Heparin Anti-Xa Level ABG pH POC ABG pO2 ABG pO2 65.3 L ABG HCO3 31.8 H ABG O2 Saturation 93.5 L ABG Base Excess 6.7 H POC ABG pCO2 ABG Hemoglobin 13.3 L ABG Oxyhemoglobin ABG Chloride ABG Glucose Oxyhemoglobin 90.9 L Sodium Potassium Chloride Carbon Dioxide BUN Creatinine Glucose POC Glucose 111 H 111 H Lactic Acid Calcium Phosphorus Magnesium AST ALT Lactate Dehydrogenase Total Bilirubin Direct Bilirubin CK-MB (CK-2) C-Reactive Protein NT-Pro-B Natriuret Pep Total Protein Albumin Arterial Blood Glucose Urine WBC (Auto) Urine Creatinine 01/14/20 01/14/20 01/14/20 12:10 16:14 16:14 WBC RBC Hgb 10.6 L Hct 34.2 L MCHC 31 L RDW 18.3 H MCV 83 L MCH 26 L Lymph % (Auto) [facility] % (Auto) 7.4 H [facility] # Eos # Lymph # (Auto) [facility] # (Auto) Eos # (Auto) Seg Neutrophils % 71.9 H Seg Neuts % (Manual) Baso # (Auto) Lymphocytes % (Manual) Monocytes % (Manual) Eosinophils % (Manual) Basophils % (Manual) Seg Neutrophils # Seg Neutrophils # Man Lymphocytes # (Manual) Monocytes # (Manual) Eosinophils # (Manual) Nucleated RBC % Basophils # (Manual) PT INR APTT Heparin Anti-Xa Level ABG pH POC ABG pO2 ABG pO2 ABG HCO3 ABG O2 Saturation ABG Base Excess POC ABG pCO2 ABG Hemoglobin ABG Oxyhemoglobin ABG Chloride ABG Glucose Oxyhemoglobin Sodium Potassium Chloride Carbon Dioxide 31 H BUN Creatinine 0.6 L Glucose 131 H POC Glucose 139 H Lactic Acid Calcium Phosphorus Magnesium AST ALT Lactate Dehydrogenase Total Bilirubin Direct Bilirubin CK-MB (CK-2) C-Reactive Protein NT-Pro-B Natriuret Pep Total Protein Albumin Arterial Blood Glucose Urine WBC (Auto) Urine Creatinine 01/14/20 01/15/20 01/15/20 18:05 00:52 05:35 WBC RBC Hgb Hct MCHC RDW MCV MCH Lymph % (Auto) [facility] % (Auto) [facility] # Eos # Lymph # (Auto) [facility] # (Auto) Eos # (Auto) Seg Neutrophils % Seg Neuts % (Manual) Baso # (Auto) Lymphocytes % (Manual) Monocytes % (Manual) Eosinophils % (Manual) Basophils % (Manual) Seg Neutrophils # Seg Neutrophils # Man Lymphocytes # (Manual) Monocytes # (Manual) Eosinophils # (Manual) Nucleated RBC % Basophils # (Manual) PT INR APTT Heparin Anti-Xa Level ABG pH POC ABG pO2 ABG pO2 ABG HCO3 ABG O2 Saturation ABG Base Excess POC ABG pCO2 ABG Hemoglobin ABG Oxyhemoglobin ABG Chloride ABG Glucose Oxyhemoglobin Sodium Potassium Chloride Carbon Dioxide BUN Creatinine Glucose POC Glucose 147 H 140 H 159 H Lactic Acid Calcium Phosphorus Magnesium AST ALT Lactate Dehydrogenase Total Bilirubin Direct Bilirubin CK-MB (CK-2) C-Reactive Protein NT-Pro-B Natriuret Pep Total Protein Albumin Arterial Blood Glucose Urine WBC (Auto) Urine Creatinine 01/15/20 01/15/20 01/16/20 12:52 17:43 00:32 WBC RBC Hgb Hct MCHC RDW MCV MCH Lymph % (Auto) [facility] % (Auto) [facility] # Eos # Lymph # (Auto) [facility] # (Auto) Eos # (Auto) Seg Neutrophils % Seg Neuts % (Manual) Baso # (Auto) Lymphocytes % (Manual) Monocytes % (Manual) Eosinophils % (Manual) Basophils % (Manual) Seg Neutrophils # Seg Neutrophils # Man Lymphocytes # (Manual) Monocytes # (Manual) Eosinophils # (Manual) Nucleated RBC % Basophils # (Manual) PT INR APTT Heparin Anti-Xa Level ABG pH POC ABG pO2 ABG pO2 ABG HCO3 ABG O2 Saturation ABG Base Excess POC ABG pCO2 ABG Hemoglobin ABG Oxyhemoglobin ABG Chloride ABG Glucose Oxyhemoglobin Sodium Potassium Chloride Carbon Dioxide BUN Creatinine Glucose POC Glucose 164 H 167 H 153 H Lactic Acid Calcium Phosphorus Magnesium AST ALT Lactate Dehydrogenase Total Bilirubin Direct Bilirubin CK-MB (CK-2) C-Reactive Protein NT-Pro-B Natriuret Pep Total Protein Albumin Arterial Blood Glucose Urine WBC (Auto) Urine Creatinine 01/16/20 01/16/20 01/17/20 05:46 11:48 06:38 WBC RBC Hgb Hct MCHC RDW MCV MCH Lymph % (Auto) [facility] % (Auto) [facility] # Eos # Lymph # (Auto) [facility] # (Auto) Eos # (Auto) Seg Neutrophils % Seg Neuts % (Manual) Baso # (Auto) Lymphocytes % (Manual) Monocytes % (Manual) Eosinophils % (Manual) Basophils % (Manual) Seg Neutrophils # Seg Neutrophils # Man Lymphocytes # (Manual) Monocytes # (Manual) Eosinophils # (Manual) Nucleated RBC % Basophils # (Manual) PT INR APTT Heparin Anti-Xa Level ABG pH POC ABG pO2 ABG pO2 ABG HCO3 ABG O2 Saturation ABG Base Excess POC ABG pCO2 ABG Hemoglobin ABG Oxyhemoglobin ABG Chloride ABG Glucose Oxyhemoglobin Sodium Potassium Chloride Carbon Dioxide BUN Creatinine Glucose POC Glucose 163 H 155 H 116 H Lactic Acid Calcium Phosphorus Magnesium AST ALT Lactate Dehydrogenase Total Bilirubin Direct Bilirubin CK-MB (CK-2) C-Reactive Protein NT-Pro-B Natriuret Pep Total Protein Albumin Arterial Blood Glucose Urine WBC (Auto) Urine Creatinine 01/17/20 01/17/20 01/18/20 11:36 17:43 00:12 WBC RBC Hgb Hct MCHC RDW MCV MCH Lymph % (Auto) [facility] % (Auto) [facility] # Eos # Lymph # (Auto) [facility] # (Auto) Eos # (Auto) Seg Neutrophils % Seg Neuts % (Manual) Baso # (Auto) Lymphocytes % (Manual) Monocytes % (Manual) Eosinophils % (Manual) Basophils % (Manual) Seg Neutrophils # Seg Neutrophils # Man Lymphocytes # (Manual) Monocytes # (Manual) Eosinophils # (Manual) Nucleated RBC % Basophils # (Manual) PT INR APTT Heparin Anti-Xa Level ABG pH POC ABG pO2 ABG pO2 ABG HCO3 ABG O2 Saturation ABG Base Excess POC ABG pCO2 ABG Hemoglobin ABG Oxyhemoglobin ABG Chloride ABG Glucose Oxyhemoglobin Sodium Potassium Chloride Carbon Dioxide BUN Creatinine Glucose POC Glucose 110 H 134 H 108 H Lactic Acid Calcium Phosphorus Magnesium AST ALT Lactate Dehydrogenase Total Bilirubin Direct Bilirubin CK-MB (CK-2) C-Reactive Protein NT-Pro-B Natriuret Pep Total Protein Albumin Arterial Blood Glucose Urine WBC (Auto) Urine Creatinine 01/18/20 01/18/20 01/18/20 05:37 06:46 06:46 WBC RBC Hgb 10.1 L Hct 32.2 L MCHC 31 L RDW 18.1 H MCV 81 L MCH 25 L Lymph % (Auto) [facility] % (Auto) [facility] # Eos # Lymph # (Auto) [facility] # (Auto) Eos # (Auto) Seg Neutrophils % 71.9 H Seg Neuts % (Manual) Baso # (Auto) Lymphocytes % (Manual) Monocytes % (Manual) Eosinophils % (Manual) Basophils % (Manual) Seg Neutrophils # Seg Neutrophils # Man Lymphocytes # (Manual) Monocytes # (Manual) Eosinophils # (Manual) Nucleated RBC % Basophils # (Manual) PT INR APTT Heparin Anti-Xa Level ABG pH POC ABG pO2 ABG pO2 ABG HCO3 ABG O2 Saturation ABG Base Excess POC ABG pCO2 ABG Hemoglobin ABG Oxyhemoglobin ABG Chloride ABG Glucose Oxyhemoglobin Sodium Potassium Chloride Carbon Dioxide BUN Creatinine 0.7 L Glucose 155 H POC Glucose 168 H Lactic Acid Calcium Phosphorus Magnesium AST ALT Lactate Dehydrogenase Total Bilirubin Direct Bilirubin CK-MB (CK-2) C-Reactive Protein NT-Pro-B Natriuret Pep Total Protein Albumin Arterial Blood Glucose Urine WBC (Auto) Urine Creatinine 01/18/20 01/18/20 01/18/20 12:05 17:14 23:28 WBC RBC Hgb Hct MCHC RDW MCV MCH Lymph % (Auto) [facility] % (Auto) [facility] # Eos # Lymph # (Auto) [facility] # (Auto) Eos # (Auto) Seg Neutrophils % Seg Neuts % (Manual) Baso # (Auto) Lymphocytes % (Manual) Monocytes % (Manual) Eosinophils % (Manual) Basophils % (Manual) Seg Neutrophils # Seg Neutrophils # Man Lymphocytes # (Manual) Monocytes # (Manual) Eosinophils # (Manual) Nucleated RBC % Basophils # (Manual) PT INR APTT Heparin Anti-Xa Level ABG pH POC ABG pO2 ABG pO2 ABG HCO3 ABG O2 Saturation ABG Base Excess POC ABG pCO2 ABG Hemoglobin ABG Oxyhemoglobin ABG Chloride ABG Glucose Oxyhemoglobin Sodium Potassium Chloride Carbon Dioxide BUN Creatinine Glucose POC Glucose 128 H 126 H 128 H Lactic Acid Calcium Phosphorus Magnesium AST ALT Lactate Dehydrogenase Total Bilirubin Direct Bilirubin CK-MB (CK-2) C-Reactive Protein NT-Pro-B Natriuret Pep Total Protein Albumin Arterial Blood Glucose Urine WBC (Auto) Urine Creatinine 01/19/20 01/19/20 01/19/20 05:39 12:33 17:36 WBC RBC Hgb Hct MCHC RDW MCV MCH Lymph % (Auto) [facility] % (Auto) [facility] # Eos # Lymph # (Auto) [facility] # (Auto) Eos # (Auto) Seg Neutrophils % Seg Neuts % (Manual) Baso # (Auto) Lymphocytes % (Manual) Monocytes % (Manual) Eosinophils % (Manual) Basophils % (Manual) Seg Neutrophils # Seg Neutrophils # Man Lymphocytes # (Manual) Monocytes # (Manual) Eosinophils # (Manual) Nucleated RBC % Basophils # (Manual) PT INR APTT Heparin Anti-Xa Level ABG pH POC ABG pO2 ABG pO2 ABG HCO3 ABG O2 Saturation ABG Base Excess POC ABG pCO2 ABG Hemoglobin ABG Oxyhemoglobin ABG Chloride ABG Glucose Oxyhemoglobin Sodium Potassium Chloride Carbon Dioxide BUN Creatinine Glucose POC Glucose 164 H 171 H 152 H Lactic Acid Calcium Phosphorus Magnesium AST ALT Lactate Dehydrogenase Total Bilirubin Direct Bilirubin CK-MB (CK-2) C-Reactive Protein NT-Pro-B Natriuret Pep Total Protein Albumin Arterial Blood Glucose Urine WBC (Auto) Urine Creatinine 01/20/20 01/20/20 01/20/20 00:12 05:20 05:35 WBC RBC Hgb 9.2 L Hct 29.4 L MCHC 31 L RDW 17.9 H MCV 81 L MCH 25 L Lymph % (Auto) [facility] % (Auto) [facility] # Eos # Lymph # (Auto) [facility] # (Auto) Eos # (Auto) Seg Neutrophils % Seg Neuts % (Manual) Baso # (Auto) Lymphocytes % (Manual) Monocytes % (Manual) Eosinophils % (Manual) Basophils % (Manual) Seg Neutrophils # Seg Neutrophils # Man Lymphocytes # (Manual) Monocytes # (Manual) Eosinophils # (Manual) Nucleated RBC % Basophils # (Manual) PT INR APTT Heparin Anti-Xa Level ABG pH POC ABG pO2 ABG pO2 ABG HCO3 ABG O2 Saturation ABG Base Excess POC ABG pCO2 ABG Hemoglobin ABG Oxyhemoglobin ABG Chloride ABG Glucose Oxyhemoglobin Sodium Potassium Chloride Carbon Dioxide BUN Creatinine Glucose POC Glucose 120 H 136 H Lactic Acid Calcium Phosphorus Magnesium AST ALT Lactate Dehydrogenase Total Bilirubin Direct Bilirubin CK-MB (CK-2) C-Reactive Protein NT-Pro-B Natriuret Pep Total Protein Albumin Arterial Blood Glucose Urine WBC (Auto) Urine Creatinine 01/20/20 01/20/20 01/20/20 05:40 11:58 14:55 WBC RBC Hgb 9.0 L Hct 28.3 L MCHC RDW MCV MCH Lymph % (Auto) [facility] % (Auto) [facility] # Eos # Lymph # (Auto) [facility] # (Auto) Eos # (Auto) Seg Neutrophils % Seg Neuts % (Manual) Baso # (Auto) Lymphocytes % (Manual) Monocytes % (Manual) Eosinophils % (Manual) Basophils % (Manual) Seg Neutrophils # Seg Neutrophils # Man Lymphocytes # (Manual) Monocytes # (Manual) Eosinophils # (Manual) Nucleated RBC % Basophils # (Manual) PT INR APTT Heparin Anti-Xa Level ABG pH POC ABG pO2 ABG pO2 ABG HCO3 ABG O2 Saturation ABG Base Excess POC ABG pCO2 ABG Hemoglobin ABG Oxyhemoglobin ABG Chloride ABG Glucose Oxyhemoglobin Sodium Potassium Chloride Carbon Dioxide 32 H BUN 22 H Creatinine 0.7 L Glucose 128 H POC Glucose 152 H Lactic Acid Calcium Phosphorus Magnesium AST ALT Lactate Dehydrogenase Total Bilirubin Direct Bilirubin CK-MB (CK-2) C-Reactive Protein NT-Pro-B Natriuret Pep Total Protein Albumin Arterial Blood Glucose Urine WBC (Auto) Urine Creatinine 01/20/20 01/20/20 01/20/20 14:55 18:14 21:35 WBC RBC Hgb Hct MCHC RDW MCV MCH Lymph % (Auto) [facility] % (Auto) [facility] # Eos # Lymph # (Auto) [facility] # (Auto) Eos # (Auto) Seg Neutrophils % Seg Neuts % (Manual) Baso # (Auto) Lymphocytes % (Manual) Monocytes % (Manual) Eosinophils % (Manual) Basophils % (Manual) Seg Neutrophils # Seg Neutrophils # Man Lymphocytes # (Manual) Monocytes # (Manual) Eosinophils # (Manual) Nucleated RBC % Basophils # (Manual) PT 20.4 H INR 1.72 H APTT 40.6 H Heparin Anti-Xa Level > 2.00 H ABG pH POC ABG pO2 ABG pO2 ABG HCO3 ABG O2 Saturation ABG Base Excess POC ABG pCO2 ABG Hemoglobin ABG Oxyhemoglobin ABG Chloride ABG Glucose Oxyhemoglobin Sodium Potassium Chloride Carbon Dioxide BUN Creatinine Glucose POC Glucose 150 H Lactic Acid Calcium Phosphorus Magnesium AST ALT Lactate Dehydrogenase Total Bilirubin Direct Bilirubin CK-MB (CK-2) C-Reactive Protein NT-Pro-B Natriuret Pep Total Protein Albumin Arterial Blood Glucose Urine WBC (Auto) Urine Creatinine 01/21/20 01/21/20 01/21/20 00:30 05:47 05:59 WBC RBC Hgb Hct MCHC RDW MCV MCH Lymph % (Auto) [facility] % (Auto) [facility] # Eos # Lymph # (Auto) [facility] # (Auto) Eos # (Auto) Seg Neutrophils % Seg Neuts % (Manual) Baso # (Auto) Lymphocytes % (Manual) Monocytes % (Manual) Eosinophils % (Manual) Basophils % (Manual) Seg Neutrophils # Seg Neutrophils # Man Lymphocytes # (Manual) Monocytes # (Manual) Eosinophils # (Manual) Nucleated RBC % Basophils # (Manual) PT INR APTT Heparin Anti-Xa Level 1.93 H ABG pH POC ABG pO2 ABG pO2 ABG HCO3 ABG O2 Saturation ABG Base Excess POC ABG pCO2 ABG Hemoglobin ABG Oxyhemoglobin ABG Chloride ABG Glucose Oxyhemoglobin Sodium Potassium Chloride Carbon Dioxide BUN Creatinine Glucose POC Glucose 126 H 148 H Lactic Acid Calcium Phosphorus Magnesium AST ALT Lactate Dehydrogenase Total Bilirubin Direct Bilirubin CK-MB (CK-2) C-Reactive Protein NT-Pro-B Natriuret Pep Total Protein Albumin Arterial Blood Glucose Urine WBC (Auto) Urine Creatinine 01/21/20 01/21/20 01/21/20 12:32 18:20 23:54 WBC RBC Hgb Hct MCHC RDW MCV MCH Lymph % (Auto) [facility] % (Auto) [facility] # Eos # Lymph # (Auto) [facility] # (Auto) Eos # (Auto) Seg Neutrophils % Seg Neuts % (Manual) Baso # (Auto) Lymphocytes % (Manual) Monocytes % (Manual) Eosinophils % (Manual) Basophils % (Manual) Seg Neutrophils # Seg Neutrophils # Man Lymphocytes # (Manual) Monocytes # (Manual) Eosinophils # (Manual) Nucleated RBC % Basophils # (Manual) PT INR APTT Heparin Anti-Xa Level 1.28 H ABG pH POC ABG pO2 ABG pO2 ABG HCO3 ABG O2 Saturation ABG Base Excess POC ABG pCO2 ABG Hemoglobin ABG Oxyhemoglobin ABG Chloride ABG Glucose Oxyhemoglobin Sodium Potassium Chloride Carbon Dioxide BUN Creatinine Glucose POC Glucose 112 H 146 H Lactic Acid Calcium Phosphorus Magnesium AST ALT Lactate Dehydrogenase Total Bilirubin Direct Bilirubin CK-MB (CK-2) C-Reactive Protein NT-Pro-B Natriuret Pep Total Protein Albumin Arterial Blood Glucose Urine WBC (Auto) Urine Creatinine 01/22/20 01/22/20 01/22/20 04:45 04:45 05:48 WBC RBC Hgb 9.3 L Hct 29.0 L MCHC RDW MCV MCH Lymph % (Auto) [facility] % (Auto) [facility] # Eos # Lymph # (Auto) [facility] # (Auto) Eos # (Auto) Seg Neutrophils % Seg Neuts % (Manual) Baso # (Auto) Lymphocytes % (Manual) Monocytes % (Manual) Eosinophils % (Manual) Basophils % (Manual) Seg Neutrophils # Seg Neutrophils # Man Lymphocytes # (Manual) Monocytes # (Manual) Eosinophils # (Manual) Nucleated RBC % Basophils # (Manual) PT INR APTT Heparin Anti-Xa Level 1.34 H ABG pH POC ABG pO2 ABG pO2 ABG HCO3 ABG O2 Saturation ABG Base Excess POC ABG pCO2 ABG Hemoglobin ABG Oxyhemoglobin ABG Chloride ABG Glucose Oxyhemoglobin Sodium Potassium Chloride Carbon Dioxide BUN Creatinine Glucose POC Glucose 142 H Lactic Acid Calcium Phosphorus Magnesium AST ALT Lactate Dehydrogenase Total Bilirubin Direct Bilirubin CK-MB (CK-2) C-Reactive Protein NT-Pro-B Natriuret Pep Total Protein Albumin Arterial Blood Glucose Urine WBC (Auto) Urine Creatinine 01/22/20 01/22/20 01/22/20 08:09 08:22 09:58 WBC RBC Hgb Hct MCHC RDW MCV MCH Lymph % (Auto) [facility] % (Auto) [facility] # Eos # Lymph # (Auto) [facility] # (Auto) Eos # (Auto) Seg Neutrophils % Seg Neuts % (Manual) Baso # (Auto) Lymphocytes % (Manual) Monocytes % (Manual) Eosinophils % (Manual) Basophils % (Manual) Seg Neutrophils # Seg Neutrophils # Man Lymphocytes # (Manual) Monocytes # (Manual) Eosinophils # (Manual) Nucleated RBC % Basophils # (Manual) PT 16.9 H INR 1.34 H APTT Heparin Anti-Xa Level ABG pH POC ABG pO2 ABG pO2 ABG HCO3 ABG O2 Saturation ABG Base Excess POC ABG pCO2 ABG Hemoglobin ABG Oxyhemoglobin ABG Chloride ABG Glucose Oxyhemoglobin Sodium Potassium Chloride 97.8 L Carbon Dioxide BUN 29 H Creatinine Glucose 128 H POC Glucose 131 H Lactic Acid Calcium Phosphorus Magnesium AST ALT Lactate Dehydrogenase Total Bilirubin Direct Bilirubin CK-MB (CK-2) C-Reactive Protein NT-Pro-B Natriuret Pep Total Protein Albumin Arterial Blood Glucose Urine WBC (Auto) Urine Creatinine 01/22/20 01/22/20 01/22/20 12:44 16:13 18:18 WBC RBC Hgb Hct MCHC RDW MCV MCH Lymph % (Auto) [facility] % (Auto) [facility] # Eos # Lymph # (Auto) [facility] # (Auto) Eos # (Auto) Seg Neutrophils % Seg Neuts % (Manual) Baso # (Auto) Lymphocytes % (Manual) Monocytes % (Manual) Eosinophils % (Manual) Basophils % (Manual) Seg Neutrophils # Seg Neutrophils # Man Lymphocytes # (Manual) Monocytes # (Manual) Eosinophils # (Manual) Nucleated RBC % Basophils # (Manual) PT INR APTT Heparin Anti-Xa Level ABG pH POC ABG pO2 ABG pO2 ABG HCO3 ABG O2 Saturation ABG Base Excess POC ABG pCO2 ABG Hemoglobin ABG Oxyhemoglobin ABG Chloride ABG Glucose Oxyhemoglobin Sodium Potassium Chloride Carbon Dioxide BUN Creatinine Glucose POC Glucose 156 H 133 H 155 H Lactic Acid Calcium Phosphorus Magnesium AST ALT Lactate Dehydrogenase Total Bilirubin Direct Bilirubin CK-MB (CK-2) C-Reactive Protein NT-Pro-B Natriuret Pep Total Protein Albumin Arterial Blood Glucose Urine WBC (Auto) Urine Creatinine 01/22/20 01/23/20 01/23/20 23:22 05:37 12:59 WBC RBC Hgb Hct MCHC RDW MCV MCH Lymph % (Auto) [facility] % (Auto) [facility] # Eos # Lymph # (Auto) [facility] # (Auto) Eos # (Auto) Seg Neutrophils % Seg Neuts % (Manual) Baso # (Auto) Lymphocytes % (Manual) Monocytes % (Manual) Eosinophils % (Manual) Basophils % (Manual) Seg Neutrophils # Seg Neutrophils # Man Lymphocytes # (Manual) Monocytes # (Manual) Eosinophils # (Manual) Nucleated RBC % Basophils # (Manual) PT INR APTT Heparin Anti-Xa Level ABG pH POC ABG pO2 ABG pO2 ABG HCO3 ABG O2 Saturation ABG Base Excess POC ABG pCO2 ABG Hemoglobin ABG Oxyhemoglobin ABG Chloride ABG Glucose Oxyhemoglobin Sodium Potassium Chloride Carbon Dioxide BUN Creatinine Glucose POC Glucose 148 H 163 H 175 H Lactic Acid Calcium Phosphorus Magnesium AST ALT Lactate Dehydrogenase Total Bilirubin Direct Bilirubin CK-MB (CK-2) C-Reactive Protein NT-Pro-B Natriuret Pep Total Protein Albumin Arterial Blood Glucose Urine WBC (Auto) Urine Creatinine 01/23/20 01/23/20 01/24/20 17:28 23:56 04:30 WBC RBC 3.46 L Hgb 8.8 L Hct 27.8 L MCHC RDW 18.2 H MCV 81 L MCH 25 L Lymph % (Auto) [facility] % (Auto) 7.8 H [facility] # Eos # Lymph # (Auto) [facility] # (Auto) Eos # (Auto) Seg Neutrophils % Seg Neuts % (Manual) Baso # (Auto) Lymphocytes % (Manual) Monocytes % (Manual) Eosinophils % (Manual) Basophils % (Manual) Seg Neutrophils # Seg Neutrophils # Man Lymphocytes # (Manual) Monocytes # (Manual) Eosinophils # (Manual) Nucleated RBC % Basophils # (Manual) PT INR APTT Heparin Anti-Xa Level ABG pH POC ABG pO2 ABG pO2 ABG HCO3 ABG O2 Saturation ABG Base Excess POC ABG pCO2 ABG Hemoglobin ABG Oxyhemoglobin ABG Chloride ABG Glucose Oxyhemoglobin Sodium Potassium Chloride Carbon Dioxide BUN Creatinine Glucose POC Glucose 165 H 177 H Lactic Acid Calcium Phosphorus Magnesium AST ALT Lactate Dehydrogenase Total Bilirubin Direct Bilirubin CK-MB (CK-2) C-Reactive Protein NT-Pro-B Natriuret Pep Total Protein Albumin Arterial Blood Glucose Urine WBC (Auto) Urine Creatinine 01/24/20 01/24/20 01/24/20 04:30 07:18 12:06 WBC RBC Hgb Hct MCHC RDW MCV MCH Lymph % (Auto) [facility] % (Auto) [facility] # Eos # Lymph # (Auto) [facility] # (Auto) Eos # (Auto) Seg Neutrophils % Seg Neuts % (Manual) Baso # (Auto) Lymphocytes % (Manual) Monocytes % (Manual) Eosinophils % (Manual) Basophils % (Manual) Seg Neutrophils # Seg Neutrophils # Man Lymphocytes # (Manual) Monocytes # (Manual) Eosinophils # (Manual) Nucleated RBC % Basophils # (Manual) PT INR APTT Heparin Anti-Xa Level ABG pH POC ABG pO2 ABG pO2 ABG HCO3 ABG O2 Saturation ABG Base Excess POC ABG pCO2 ABG Hemoglobin ABG Oxyhemoglobin ABG Chloride ABG Glucose Oxyhemoglobin Sodium Potassium Chloride 97.9 L Carbon Dioxide BUN 31 H Creatinine Glucose 146 H POC Glucose 151 H 133 H Lactic Acid Calcium Phosphorus Magnesium AST ALT Lactate Dehydrogenase Total Bilirubin Direct Bilirubin CK-MB (CK-2) C-Reactive Protein NT-Pro-B Natriuret Pep Total Protein Albumin Arterial Blood Glucose Urine WBC (Auto) Urine Creatinine 01/24/20 01/25/20 01/25/20 17:36 00:08 04:25 WBC RBC 3.50 L Hgb 8.7 L Hct 27.9 L MCHC 31 L RDW 18.2 H MCV 80 L MCH 25 L Lymph % (Auto) [facility] % (Auto) 8.5 H [facility] # Eos # Lymph # (Auto) [facility] # (Auto) Eos # (Auto) Seg Neutrophils % Seg Neuts % (Manual) Baso # (Auto) Lymphocytes % (Manual) Monocytes % (Manual) Eosinophils % (Manual) Basophils % (Manual) Seg Neutrophils # Seg Neutrophils # Man Lymphocytes # (Manual) Monocytes # (Manual) Eosinophils # (Manual) Nucleated RBC % Basophils # (Manual) PT INR APTT Heparin Anti-Xa Level ABG pH POC ABG pO2 ABG pO2 ABG HCO3 ABG O2 Saturation ABG Base Excess POC ABG pCO2 ABG Hemoglobin ABG Oxyhemoglobin ABG Chloride ABG Glucose Oxyhemoglobin Sodium Potassium Chloride Carbon Dioxide BUN Creatinine Glucose POC Glucose 133 H 129 H Lactic Acid Calcium Phosphorus Magnesium AST ALT Lactate Dehydrogenase Total Bilirubin Direct Bilirubin CK-MB (CK-2) C-Reactive Protein NT-Pro-B Natriuret Pep Total Protein Albumin Arterial Blood Glucose Urine WBC (Auto) Urine Creatinine 01/25/20 01/25/20 01/25/20 04:25 05:38 11:52 WBC RBC Hgb Hct MCHC RDW MCV MCH Lymph % (Auto) [facility] % (Auto) [facility] # Eos # Lymph # (Auto) [facility] # (Auto) Eos # (Auto) Seg Neutrophils % Seg Neuts % (Manual) Baso # (Auto) Lymphocytes % (Manual) Monocytes % (Manual) Eosinophils % (Manual) Basophils % (Manual) Seg Neutrophils # Seg Neutrophils # Man Lymphocytes # (Manual) Monocytes # (Manual) Eosinophils # (Manual) Nucleated RBC % Basophils # (Manual) PT INR APTT Heparin Anti-Xa Level ABG pH POC ABG pO2 ABG pO2 ABG HCO3 ABG O2 Saturation ABG Base Excess POC ABG pCO2 ABG Hemoglobin ABG Oxyhemoglobin ABG Chloride ABG Glucose Oxyhemoglobin Sodium Potassium Chloride Carbon Dioxide BUN 30 H Creatinine Glucose 134 H POC Glucose 129 H 134 H Lactic Acid Calcium Phosphorus Magnesium AST ALT Lactate Dehydrogenase Total Bilirubin Direct Bilirubin CK-MB (CK-2) C-Reactive Protein NT-Pro-B Natriuret Pep Total Protein Albumin Arterial Blood Glucose Urine WBC (Auto) Urine Creatinine 01/25/20 01/25/20 01/26/20 17:13 21:02 00:59 WBC RBC Hgb Hct MCHC RDW MCV MCH Lymph % (Auto) [facility] % (Auto) [facility] # Eos # Lymph # (Auto) [facility] # (Auto) Eos # (Auto) Seg Neutrophils % Seg Neuts % (Manual) Baso # (Auto) Lymphocytes % (Manual) Monocytes % (Manual) Eosinophils % (Manual) Basophils % (Manual) Seg Neutrophils # Seg Neutrophils # Man Lymphocytes # (Manual) Monocytes # (Manual) Eosinophils # (Manual) Nucleated RBC % Basophils # (Manual) PT INR APTT Heparin Anti-Xa Level ABG pH POC ABG pO2 ABG pO2 57.5 L ABG HCO3 31.7 H ABG O2 Saturation 90.3 L ABG Base Excess 6.6 H POC ABG pCO2 ABG Hemoglobin 13.0 L ABG Oxyhemoglobin ABG Chloride ABG Glucose Oxyhemoglobin 87.5 L Sodium Potassium Chloride Carbon Dioxide BUN Creatinine Glucose POC Glucose 124 H 196 H Lactic Acid Calcium Phosphorus Magnesium AST ALT Lactate Dehydrogenase Total Bilirubin Direct Bilirubin CK-MB (CK-2) C-Reactive Protein NT-Pro-B Natriuret Pep Total Protein Albumin Arterial Blood Glucose Urine WBC (Auto) Urine Creatinine 01/26/20 01/26/20 01/26/20 03:20 05:46 12:46 WBC RBC Hgb 9.2 L Hct 29.4 L MCHC RDW MCV MCH Lymph % (Auto) [facility] % (Auto) [facility] # Eos # Lymph # (Auto) [facility] # (Auto) Eos # (Auto) Seg Neutrophils % Seg Neuts % (Manual) Baso # (Auto) Lymphocytes % (Manual) Monocytes % (Manual) Eosinophils % (Manual) Basophils % (Manual) Seg Neutrophils # Seg Neutrophils # Man Lymphocytes # (Manual) Monocytes # (Manual) Eosinophils # (Manual) Nucleated RBC % Basophils # (Manual) PT INR APTT Heparin Anti-Xa Level ABG pH POC ABG pO2 ABG pO2 ABG HCO3 ABG O2 Saturation ABG Base Excess POC ABG pCO2 ABG Hemoglobin ABG Oxyhemoglobin ABG Chloride ABG Glucose Oxyhemoglobin Sodium Potassium Chloride Carbon Dioxide BUN Creatinine Glucose POC Glucose 141 H 122 H Lactic Acid Calcium Phosphorus Magnesium AST ALT Lactate Dehydrogenase Total Bilirubin Direct Bilirubin CK-MB (CK-2) C-Reactive Protein NT-Pro-B Natriuret Pep Total Protein Albumin Arterial Blood Glucose Urine WBC (Auto) Urine Creatinine 01/26/20 01/26/20 01/27/20 18:03 23:55 04:47 WBC RBC Hgb Hct MCHC RDW MCV MCH Lymph % (Auto) [facility] % (Auto) [facility] # Eos # Lymph # (Auto) [facility] # (Auto) Eos # (Auto) Seg Neutrophils % Seg Neuts % (Manual) Baso # (Auto) Lymphocytes % (Manual) Monocytes % (Manual) Eosinophils % (Manual) Basophils % (Manual) Seg Neutrophils # Seg Neutrophils # Man Lymphocytes # (Manual) Monocytes # (Manual) Eosinophils # (Manual) Nucleated RBC % Basophils # (Manual) PT INR APTT Heparin Anti-Xa Level ABG pH POC ABG pO2 ABG pO2 ABG HCO3 ABG O2 Saturation ABG Base Excess POC ABG pCO2 ABG Hemoglobin ABG Oxyhemoglobin ABG Chloride ABG Glucose Oxyhemoglobin Sodium Potassium Chloride Carbon Dioxide BUN 30 H Creatinine 0.7 L Glucose 135 H POC Glucose 142 H 159 H Lactic Acid Calcium Phosphorus Magnesium AST ALT Lactate Dehydrogenase Total Bilirubin Direct Bilirubin CK-MB (CK-2) C-Reactive Protein NT-Pro-B Natriuret Pep Total Protein Albumin Arterial Blood Glucose Urine WBC (Auto) Urine Creatinine 01/27/20 01/27/20 01/27/20 05:43 12:06 17:16 WBC RBC Hgb Hct MCHC RDW MCV MCH Lymph % (Auto) [facility] % (Auto) [facility] # Eos # Lymph # (Auto) [facility] # (Auto) Eos # (Auto) Seg Neutrophils % Seg Neuts % (Manual) Baso # (Auto) Lymphocytes % (Manual) Monocytes % (Manual) Eosinophils % (Manual) Basophils % (Manual) Seg Neutrophils # Seg Neutrophils # Man Lymphocytes # (Manual) Monocytes # (Manual) Eosinophils # (Manual) Nucleated RBC % Basophils # (Manual) PT INR APTT Heparin Anti-Xa Level ABG pH POC ABG pO2 ABG pO2 ABG HCO3 ABG O2 Saturation ABG Base Excess POC ABG pCO2 ABG Hemoglobin ABG Oxyhemoglobin ABG Chloride ABG Glucose Oxyhemoglobin Sodium Potassium Chloride Carbon Dioxide BUN Creatinine Glucose POC Glucose 143 H 142 H 128 H Lactic Acid Calcium Phosphorus Magnesium AST ALT Lactate Dehydrogenase Total Bilirubin Direct Bilirubin CK-MB (CK-2) C-Reactive Protein NT-Pro-B Natriuret Pep Total Protein Albumin Arterial Blood Glucose Urine WBC (Auto) Urine Creatinine 01/27/20 01/28/20 01/28/20 23:55 04:37 05:55 WBC RBC Hgb 9.4 L Hct 29.9 L MCHC RDW MCV MCH Lymph % (Auto) [facility] % (Auto) [facility] # Eos # Lymph # (Auto) [facility] # (Auto) Eos # (Auto) Seg Neutrophils % Seg Neuts % (Manual) Baso # (Auto) Lymphocytes % (Manual) Monocytes % (Manual) Eosinophils % (Manual) Basophils % (Manual) Seg Neutrophils # Seg Neutrophils # Man Lymphocytes # (Manual) Monocytes # (Manual) Eosinophils # (Manual) Nucleated RBC % Basophils # (Manual) PT INR APTT Heparin Anti-Xa Level ABG pH POC ABG pO2 ABG pO2 ABG HCO3 ABG O2 Saturation ABG Base Excess POC ABG pCO2 ABG Hemoglobin ABG Oxyhemoglobin ABG Chloride ABG Glucose Oxyhemoglobin Sodium Potassium Chloride Carbon Dioxide BUN Creatinine Glucose POC Glucose 166 H 169 H Lactic Acid Calcium Phosphorus Magnesium AST ALT Lactate Dehydrogenase Total Bilirubin Direct Bilirubin CK-MB (CK-2) C-Reactive Protein NT-Pro-B Natriuret Pep Total Protein Albumin Arterial Blood Glucose Urine WBC (Auto) Urine Creatinine 01/28/20 01/28/20 01/28/20 11:58 17:26 23:46 WBC RBC Hgb Hct MCHC RDW MCV MCH Lymph % (Auto) [facility] % (Auto) [facility] # Eos # Lymph # (Auto) [facility] # (Auto) Eos # (Auto) Seg Neutrophils % Seg Neuts % (Manual) Baso # (Auto) Lymphocytes % (Manual) Monocytes % (Manual) Eosinophils % (Manual) Basophils % (Manual) Seg Neutrophils # Seg Neutrophils # Man Lymphocytes # (Manual) Monocytes # (Manual) Eosinophils # (Manual) Nucleated RBC % Basophils # (Manual) PT INR APTT Heparin Anti-Xa Level ABG pH POC ABG pO2 ABG pO2 ABG HCO3 ABG O2 Saturation ABG Base Excess POC ABG pCO2 ABG Hemoglobin ABG Oxyhemoglobin ABG Chloride ABG Glucose Oxyhemoglobin Sodium Potassium Chloride Carbon Dioxide BUN Creatinine Glucose POC Glucose 130 H 126 H 150 H Lactic Acid Calcium Phosphorus Magnesium AST ALT Lactate Dehydrogenase Total Bilirubin Direct Bilirubin CK-MB (CK-2) C-Reactive Protein NT-Pro-B Natriuret Pep Total Protein Albumin Arterial Blood Glucose Urine WBC (Auto) Urine Creatinine 01/29/20 01/29/20 01/29/20 04:55 06:00 12:28 WBC RBC Hgb Hct MCHC RDW MCV MCH Lymph % (Auto) [facility] % (Auto) [facility] # Eos # Lymph # (Auto) [facility] # (Auto) Eos # (Auto) Seg Neutrophils % Seg Neuts % (Manual) Baso # (Auto) Lymphocytes % (Manual) Monocytes % (Manual) Eosinophils % (Manual) Basophils % (Manual) Seg Neutrophils # Seg Neutrophils # Man Lymphocytes # (Manual) Monocytes # (Manual) Eosinophils # (Manual) Nucleated RBC % Basophils # (Manual) PT INR APTT Heparin Anti-Xa Level ABG pH POC ABG pO2 ABG pO2 ABG HCO3 ABG O2 Saturation ABG Base Excess POC ABG pCO2 ABG Hemoglobin ABG Oxyhemoglobin ABG Chloride ABG Glucose Oxyhemoglobin Sodium Potassium Chloride Carbon Dioxide 34 H BUN Creatinine 0.6 L Glucose 152 H POC Glucose 157 H 156 H Lactic Acid Calcium Phosphorus Magnesium AST ALT Lactate Dehydrogenase Total Bilirubin Direct Bilirubin CK-MB (CK-2) C-Reactive Protein NT-Pro-B Natriuret Pep Total Protein Albumin Arterial Blood Glucose Urine WBC (Auto) Urine Creatinine 01/29/20 01/30/20 01/30/20 19:06 00:29 05:39 WBC RBC Hgb Hct MCHC RDW MCV MCH Lymph % (Auto) [facility] % (Auto) [facility] # Eos # Lymph # (Auto) [facility] # (Auto) Eos # (Auto) Seg Neutrophils % Seg Neuts % (Manual) Baso # (Auto) Lymphocytes % (Manual) Monocytes % (Manual) Eosinophils % (Manual) Basophils % (Manual) Seg Neutrophils # Seg Neutrophils # Man Lymphocytes # (Manual) Monocytes # (Manual) Eosinophils # (Manual) Nucleated RBC % Basophils # (Manual) PT INR APTT Heparin Anti-Xa Level ABG pH POC ABG pO2 ABG pO2 ABG HCO3 ABG O2 Saturation ABG Base Excess POC ABG pCO2 ABG Hemoglobin ABG Oxyhemoglobin ABG Chloride ABG Glucose Oxyhemoglobin Sodium Potassium Chloride Carbon Dioxide BUN Creatinine Glucose POC Glucose 152 H 132 H 159 H Lactic Acid Calcium Phosphorus Magnesium AST ALT Lactate Dehydrogenase Total Bilirubin Direct Bilirubin CK-MB (CK-2) C-Reactive Protein NT-Pro-B Natriuret Pep Total Protein Albumin Arterial Blood Glucose Urine WBC (Auto) Urine Creatinine 01/30/20 01/30/20 01/30/20 12:27 17:42 23:28 WBC RBC Hgb Hct MCHC RDW MCV MCH Lymph % (Auto) [facility] % (Auto) [facility] # Eos # Lymph # (Auto) [facility] # (Auto) Eos # (Auto) Seg Neutrophils % Seg Neuts % (Manual) Baso # (Auto) Lymphocytes % (Manual) Monocytes % (Manual) Eosinophils % (Manual) Basophils % (Manual) Seg Neutrophils # Seg Neutrophils # Man Lymphocytes # (Manual) Monocytes # (Manual) Eosinophils # (Manual) Nucleated RBC % Basophils # (Manual) PT INR APTT Heparin Anti-Xa Level ABG pH POC ABG pO2 ABG pO2 ABG HCO3 ABG O2 Saturation ABG Base Excess POC ABG pCO2 ABG Hemoglobin ABG Oxyhemoglobin ABG Chloride ABG Glucose Oxyhemoglobin Sodium Potassium Chloride Carbon Dioxide BUN Creatinine Glucose POC Glucose 151 H 144 H 164 H Lactic Acid Calcium Phosphorus Magnesium AST ALT Lactate Dehydrogenase Total Bilirubin Direct Bilirubin CK-MB (CK-2) C-Reactive Protein NT-Pro-B Natriuret Pep Total Protein Albumin Arterial Blood Glucose Urine WBC (Auto) Urine Creatinine 01/31/20 01/31/20 01/31/20 05:51 11:51 18:06 WBC RBC Hgb Hct MCHC RDW MCV MCH Lymph % (Auto) [facility] % (Auto) [facility] # Eos # Lymph # (Auto) [facility] # (Auto) Eos # (Auto) Seg Neutrophils % Seg Neuts % (Manual) Baso # (Auto) Lymphocytes % (Manual) Monocytes % (Manual) Eosinophils % (Manual) Basophils % (Manual) Seg Neutrophils # Seg Neutrophils # Man Lymphocytes # (Manual) Monocytes # (Manual) Eosinophils # (Manual) Nucleated RBC % Basophils # (Manual) PT INR APTT Heparin Anti-Xa Level ABG pH POC ABG pO2 ABG pO2 ABG HCO3 ABG O2 Saturation ABG Base Excess POC ABG pCO2 ABG Hemoglobin ABG Oxyhemoglobin ABG Chloride ABG Glucose Oxyhemoglobin Sodium Potassium Chloride Carbon Dioxide BUN Creatinine Glucose POC Glucose 131 H 167 H 210 H Lactic Acid Calcium Phosphorus Magnesium AST ALT Lactate Dehydrogenase Total Bilirubin Direct Bilirubin CK-MB (CK-2) C-Reactive Protein NT-Pro-B Natriuret Pep Total Protein Albumin Arterial Blood Glucose Urine WBC (Auto) Urine Creatinine 01/31/20 01/31/20 02/01/20 19:24 Unknown 00:34 WBC RBC Hgb Hct MCHC RDW MCV MCH Lymph % (Auto) [facility] % (Auto) [facility] # Eos # Lymph # (Auto) [facility] # (Auto) Eos # (Auto) Seg Neutrophils % Seg Neuts % (Manual) Baso # (Auto) Lymphocytes % (Manual) Monocytes % (Manual) Eosinophils % (Manual) Basophils % (Manual) Seg Neutrophils # Seg Neutrophils # Man Lymphocytes # (Manual) Monocytes # (Manual) Eosinophils # (Manual) Nucleated RBC % Basophils # (Manual) PT INR APTT Heparin Anti-Xa Level ABG pH POC ABG pO2 ABG pO2 ABG HCO3 ABG O2 Saturation ABG Base Excess POC ABG pCO2 ABG Hemoglobin ABG Oxyhemoglobin ABG Chloride ABG Glucose Oxyhemoglobin Sodium Potassium Chloride 95.3 L Carbon Dioxide 33 H BUN 36 H Creatinine Glucose 187 H POC Glucose 116 H Lactic Acid Calcium Phosphorus Magnesium AST ALT Lactate Dehydrogenase Total Bilirubin Direct Bilirubin CK-MB (CK-2) C-Reactive Protein NT-Pro-B Natriuret Pep Total Protein Albumin Arterial Blood Glucose Urine WBC (Auto) Urine Creatinine 57.4 H 02/01/20 02/01/20 02/01/20 05:24 10:40 12:29 WBC RBC Hgb Hct MCHC RDW MCV MCH Lymph % (Auto) [facility] % (Auto) [facility] # Eos # Lymph # (Auto) [facility] # (Auto) Eos # (Auto) Seg Neutrophils % Seg Neuts % (Manual) Baso # (Auto) Lymphocytes % (Manual) Monocytes % (Manual) Eosinophils % (Manual) Basophils % (Manual) Seg Neutrophils # Seg Neutrophils # Man Lymphocytes # (Manual) Monocytes # (Manual) Eosinophils # (Manual) Nucleated RBC % Basophils # (Manual) PT INR APTT Heparin Anti-Xa Level ABG pH POC ABG pO2 ABG pO2 ABG HCO3 ABG O2 Saturation ABG Base Excess POC ABG pCO2 ABG Hemoglobin ABG Oxyhemoglobin ABG Chloride ABG Glucose Oxyhemoglobin Sodium Potassium Chloride Carbon Dioxide BUN Creatinine Glucose POC Glucose 142 H 165 H 151 H Lactic Acid Calcium Phosphorus Magnesium AST ALT Lactate Dehydrogenase Total Bilirubin Direct Bilirubin CK-MB (CK-2) C-Reactive Protein NT-Pro-B Natriuret Pep Total Protein Albumin Arterial Blood Glucose Urine WBC (Auto) Urine Creatinine 02/01/20 02/01/20 02/02/20 17:16 23:23 06:36 WBC RBC Hgb Hct MCHC RDW MCV MCH Lymph % (Auto) [facility] % (Auto) [facility] # Eos # Lymph # (Auto) [facility] # (Auto) Eos # (Auto) Seg Neutrophils % Seg Neuts % (Manual) Baso # (Auto) Lymphocytes % (Manual) Monocytes % (Manual) Eosinophils % (Manual) Basophils % (Manual) Seg Neutrophils # Seg Neutrophils # Man Lymphocytes # (Manual) Monocytes # (Manual) Eosinophils # (Manual) Nucleated RBC % Basophils # (Manual) PT INR APTT Heparin Anti-Xa Level ABG pH POC ABG pO2 ABG pO2 ABG HCO3 ABG O2 Saturation ABG Base Excess POC ABG pCO2 ABG Hemoglobin ABG Oxyhemoglobin ABG Chloride ABG Glucose Oxyhemoglobin Sodium Potassium Chloride Carbon Dioxide BUN Creatinine Glucose POC Glucose 137 H 145 H 181 H Lactic Acid Calcium Phosphorus Magnesium AST ALT Lactate Dehydrogenase Total Bilirubin Direct Bilirubin CK-MB (CK-2) C-Reactive Protein NT-Pro-B Natriuret Pep Total Protein Albumin Arterial Blood Glucose Urine WBC (Auto) Urine Creatinine 02/02/20 02/02/20 02/02/20 10:01 12:05 17:54 WBC RBC Hgb Hct MCHC RDW MCV MCH Lymph % (Auto) [facility] % (Auto) [facility] # Eos # Lymph # (Auto) [facility] # (Auto) Eos # (Auto) Seg Neutrophils % Seg Neuts % (Manual) Baso # (Auto) Lymphocytes % (Manual) Monocytes % (Manual) Eosinophils % (Manual) Basophils % (Manual) Seg Neutrophils # Seg Neutrophils # Man Lymphocytes # (Manual) Monocytes # (Manual) Eosinophils # (Manual) Nucleated RBC % Basophils # (Manual) PT INR APTT Heparin Anti-Xa Level ABG pH POC ABG pO2 ABG pO2 ABG HCO3 ABG O2 Saturation ABG Base Excess POC ABG pCO2 ABG Hemoglobin ABG Oxyhemoglobin ABG Chloride ABG Glucose Oxyhemoglobin Sodium Potassium Chloride 95.3 L Carbon Dioxide BUN 44 H Creatinine Glucose 234 H POC Glucose 184 H 127 H Lactic Acid Calcium Phosphorus Magnesium AST 363 H ALT 457 H Lactate Dehydrogenase Total Bilirubin Direct Bilirubin CK-MB (CK-2) C-Reactive Protein NT-Pro-B Natriuret Pep Total Protein Albumin 3.0 L Arterial Blood Glucose Urine WBC (Auto) Urine Creatinine 02/02/20 02/03/20 02/03/20 23:47 05:32 07:04 WBC 13.0 H RBC Hgb 9.5 L Hct 30.8 L MCHC 31 L RDW 19.6 H MCV 81 L MCH 25 L Lymph % (Auto) [facility] % (Auto) 9.4 H [facility] # Eos # Lymph # (Auto) [facility] # (Auto) 1.2 H Eos # (Auto) Seg Neutrophils % 72.3 H Seg Neuts % (Manual) Baso # (Auto) Lymphocytes % (Manual) Monocytes % (Manual) Eosinophils % (Manual) Basophils % (Manual) Seg Neutrophils # 9.4 H Seg Neutrophils # Man Lymphocytes # (Manual) Monocytes # (Manual) Eosinophils # (Manual) Nucleated RBC % Basophils # (Manual) PT INR APTT Heparin Anti-Xa Level ABG pH POC ABG pO2 ABG pO2 ABG HCO3 ABG O2 Saturation ABG Base Excess POC ABG pCO2 ABG Hemoglobin ABG Oxyhemoglobin ABG Chloride ABG Glucose Oxyhemoglobin Sodium Potassium Chloride Carbon Dioxide BUN Creatinine Glucose POC Glucose 124 H 129 H Lactic Acid Calcium Phosphorus Magnesium AST ALT Lactate Dehydrogenase Total Bilirubin Direct Bilirubin CK-MB (CK-2) C-Reactive Protein NT-Pro-B Natriuret Pep Total Protein Albumin Arterial Blood Glucose Urine WBC (Auto) Urine Creatinine 02/03/20 02/03/20 02/03/20 07:04 11:32 12:49 WBC RBC Hgb Hct MCHC RDW MCV MCH Lymph % (Auto) [facility] % (Auto) [facility] # Eos # Lymph # (Auto) [facility] # (Auto) Eos # (Auto) Seg Neutrophils % Seg Neuts % (Manual) Baso # (Auto) Lymphocytes % (Manual) Monocytes % (Manual) Eosinophils % (Manual) Basophils % (Manual) Seg Neutrophils # Seg Neutrophils # Man Lymphocytes # (Manual) Monocytes # (Manual) Eosinophils # (Manual) Nucleated RBC % Basophils # (Manual) PT INR APTT Heparin Anti-Xa Level ABG pH POC ABG pO2 ABG pO2 ABG HCO3 ABG O2 Saturation ABG Base Excess POC ABG pCO2 ABG Hemoglobin ABG Oxyhemoglobin ABG Chloride ABG Glucose Oxyhemoglobin Sodium Potassium Chloride 97.9 L Carbon Dioxide 33 H BUN 39 H Creatinine Glucose 119 H POC Glucose 138 H Lactic Acid Calcium Phosphorus Magnesium 2.60 H AST ALT Lactate Dehydrogenase Total Bilirubin Direct Bilirubin CK-MB (CK-2) C-Reactive Protein NT-Pro-B Natriuret Pep Total Protein Albumin Arterial Blood Glucose Urine WBC (Auto) Urine Creatinine 02/03/20 02/04/20 02/04/20 18:28 16:24 16:24 WBC RBC 3.38 L Hgb 8.6 L Hct 26.9 L MCHC RDW 19.5 H MCV 80 L MCH 26 L Lymph % (Auto) [facility] % (Auto) [facility] # Eos # Lymph # (Auto) [facility] # (Auto) Eos # (Auto) Seg Neutrophils % Seg Neuts % (Manual) Baso # (Auto) Lymphocytes % (Manual) Monocytes % (Manual) Eosinophils % (Manual) Basophils % (Manual) Seg Neutrophils # Seg Neutrophils # Man Lymphocytes # (Manual) Monocytes # (Manual) Eosinophils # (Manual) Nucleated RBC % Basophils # (Manual) PT INR APTT Heparin Anti-Xa Level ABG pH POC ABG pO2 ABG pO2 ABG HCO3 ABG O2 Saturation ABG Base Excess POC ABG pCO2 ABG Hemoglobin ABG Oxyhemoglobin ABG Chloride ABG Glucose Oxyhemoglobin Sodium Potassium 3.4 L Chloride Carbon Dioxide 31 H BUN 37 H Creatinine Glucose 70 L POC Glucose 118 H Lactic Acid Calcium Phosphorus Magnesium AST 169 H ALT 394 H Lactate Dehydrogenase Total Bilirubin 1.50 H Direct Bilirubin CK-MB (CK-2) C-Reactive Protein NT-Pro-B Natriuret Pep Total Protein Albumin 2.9 L Arterial Blood Glucose Urine WBC (Auto) Urine Creatinine 02/05/20 02/05/20 02/05/20 00:41 06:37 17:14 WBC RBC Hgb Hct MCHC RDW MCV MCH Lymph % (Auto) [facility] % (Auto) [facility] # Eos # Lymph # (Auto) [facility] # (Auto) Eos # (Auto) Seg Neutrophils % Seg Neuts % (Manual) Baso # (Auto) Lymphocytes % (Manual) Monocytes % (Manual) Eosinophils % (Manual) Basophils % (Manual) Seg Neutrophils # Seg Neutrophils # Man Lymphocytes # (Manual) Monocytes # (Manual) Eosinophils # (Manual) Nucleated RBC % Basophils # (Manual) PT INR APTT Heparin Anti-Xa Level ABG pH POC ABG pO2 ABG pO2 ABG HCO3 ABG O2 Saturation ABG Base Excess POC ABG pCO2 ABG Hemoglobin ABG Oxyhemoglobin ABG Chloride ABG Glucose Oxyhemoglobin Sodium Potassium 3.1 L Chloride Carbon Dioxide 35 H BUN 32 H Creatinine 0.7 L Glucose POC Glucose 69 L 127 H Lactic Acid Calcium Phosphorus Magnesium AST 134 H ALT 352 H Lactate Dehydrogenase Total Bilirubin 1.60 H Direct Bilirubin CK-MB (CK-2) C-Reactive Protein NT-Pro-B Natriuret Pep Total Protein Albumin 2.9 L Arterial Blood Glucose Urine WBC (Auto) Urine Creatinine 02/05/20 02/06/20 02/06/20 23:43 05:32 08:01 WBC RBC Hgb Hct MCHC RDW MCV MCH Lymph % (Auto) [facility] % (Auto) [facility] # Eos # Lymph # (Auto) [facility] # (Auto) Eos # (Auto) Seg Neutrophils % Seg Neuts % (Manual) Baso # (Auto) Lymphocytes % (Manual) Monocytes % (Manual) Eosinophils % (Manual) Basophils % (Manual) Seg Neutrophils # Seg Neutrophils # Man Lymphocytes # (Manual) Monocytes # (Manual) Eosinophils # (Manual) Nucleated RBC % Basophils # (Manual) PT INR APTT Heparin Anti-Xa Level ABG pH POC ABG pO2 ABG pO2 ABG HCO3 ABG O2 Saturation ABG Base Excess POC ABG pCO2 ABG Hemoglobin ABG Oxyhemoglobin ABG Chloride ABG Glucose Oxyhemoglobin Sodium Potassium Chloride Carbon Dioxide BUN 40 H Creatinine Glucose 132 H POC Glucose 129 H 131 H Lactic Acid Calcium Phosphorus Magnesium AST ALT Lactate Dehydrogenase Total Bilirubin Direct Bilirubin CK-MB (CK-2) C-Reactive Protein NT-Pro-B Natriuret Pep Total Protein Albumin Arterial Blood Glucose Urine WBC (Auto) Urine Creatinine 02/06/20 02/06/20 02/06/20 11:51 16:28 17:32 WBC RBC Hgb Hct MCHC RDW MCV MCH Lymph % (Auto) [facility] % (Auto) [facility] # Eos # Lymph # (Auto) [facility] # (Auto) Eos # (Auto) Seg Neutrophils % Seg Neuts % (Manual) Baso # (Auto) Lymphocytes % (Manual) Monocytes % (Manual) Eosinophils % (Manual) Basophils % (Manual) Seg Neutrophils # Seg Neutrophils # Man Lymphocytes # (Manual) Monocytes # (Manual) Eosinophils # (Manual) Nucleated RBC % Basophils # (Manual) PT INR APTT Heparin Anti-Xa Level ABG pH POC ABG pO2 ABG pO2 ABG HCO3 ABG O2 Saturation ABG Base Excess POC ABG pCO2 ABG Hemoglobin ABG Oxyhemoglobin ABG Chloride ABG Glucose Oxyhemoglobin Sodium Potassium Chloride Carbon Dioxide BUN Creatinine Glucose POC Glucose 167 H 129 H Lactic Acid Calcium Phosphorus Magnesium AST 824 H ALT 948 H Lactate Dehydrogenase Total Bilirubin 1.70 H Direct Bilirubin 1.2 H CK-MB (CK-2) C-Reactive Protein NT-Pro-B Natriuret Pep Total Protein Albumin 2.9 L Arterial Blood Glucose Urine WBC (Auto) Urine Creatinine 02/07/20 02/07/20 02/07/20 00:11 04:57 04:57 WBC RBC Hgb 9.2 L Hct 29.7 L MCHC 31 L RDW 20.2 H MCV 80 L MCH 25 L Lymph % (Auto) [facility] % (Auto) [facility] # Eos # Lymph # (Auto) [facility] # (Auto) Eos # (Auto) Seg Neutrophils % Seg Neuts % (Manual) Baso # (Auto) Lymphocytes % (Manual) Monocytes % (Manual) Eosinophils % (Manual) Basophils % (Manual) Seg Neutrophils # Seg Neutrophils # Man Lymphocytes # (Manual) Monocytes # (Manual) Eosinophils # (Manual) Nucleated RBC % Basophils # (Manual) PT INR APTT Heparin Anti-Xa Level ABG pH POC ABG pO2 ABG pO2 ABG HCO3 ABG O2 Saturation ABG Base Excess POC ABG pCO2 ABG Hemoglobin ABG Oxyhemoglobin ABG Chloride ABG Glucose Oxyhemoglobin Sodium Potassium 3.4 L D Chloride Carbon Dioxide 32 H BUN 39 H Creatinine Glucose 106 H POC Glucose 121 H Lactic Acid Calcium Phosphorus Magnesium AST ALT Lactate Dehydrogenase Total Bilirubin Direct Bilirubin CK-MB (CK-2) C-Reactive Protein NT-Pro-B Natriuret Pep Total Protein Albumin Arterial Blood Glucose Urine WBC (Auto) Urine Creatinine 02/07/20 02/07/20 02/07/20 15:03 15:03 17:11 WBC RBC Hgb Hct MCHC RDW MCV MCH Lymph % (Auto) [facility] % (Auto) [facility] # Eos # Lymph # (Auto) [facility] # (Auto) Eos # (Auto) Seg Neutrophils % Seg Neuts % (Manual) Baso # (Auto) Lymphocytes % (Manual) Monocytes % (Manual) Eosinophils % (Manual) Basophils % (Manual) Seg Neutrophils # Seg Neutrophils # Man Lymphocytes # (Manual) Monocytes # (Manual) Eosinophils # (Manual) Nucleated RBC % Basophils # (Manual) PT 27.0 H INR 2.46 H APTT Heparin Anti-Xa Level ABG pH POC ABG pO2 ABG pO2 ABG HCO3 ABG O2 Saturation ABG Base Excess POC ABG pCO2 ABG Hemoglobin ABG Oxyhemoglobin ABG Chloride ABG Glucose Oxyhemoglobin Sodium Potassium Chloride Carbon Dioxide BUN Creatinine Glucose POC Glucose 109 H Lactic Acid Calcium Phosphorus Magnesium AST 424 H ALT 796 H Lactate Dehydrogenase Total Bilirubin 1.60 H Direct Bilirubin 1.2 H CK-MB (CK-2) C-Reactive Protein NT-Pro-B Natriuret Pep Total Protein Albumin 2.9 L Arterial Blood Glucose Urine WBC (Auto) Urine Creatinine 02/08/20 02/08/20 02/08/20 12:14 17:44 19:00 WBC RBC Hgb Hct MCHC RDW MCV MCH Lymph % (Auto) [facility] % (Auto) [facility] # Eos # Lymph # (Auto) [facility] # (Auto) Eos # (Auto) Seg Neutrophils % Seg Neuts % (Manual) Baso # (Auto) Lymphocytes % (Manual) Monocytes % (Manual) Eosinophils % (Manual) Basophils % (Manual) Seg Neutrophils # Seg Neutrophils # Man Lymphocytes # (Manual) Monocytes # (Manual) Eosinophils # (Manual) Nucleated RBC % Basophils # (Manual) PT INR APTT Heparin Anti-Xa Level ABG pH POC ABG pO2 ABG pO2 ABG HCO3 ABG O2 Saturation ABG Base Excess POC ABG pCO2 ABG Hemoglobin ABG Oxyhemoglobin ABG Chloride ABG Glucose Oxyhemoglobin Sodium Potassium Chloride Carbon Dioxide BUN Creatinine Glucose POC Glucose 111 H 107 H Lactic Acid Calcium Phosphorus Magnesium AST 309 H ALT 650 H Lactate Dehydrogenase Total Bilirubin 1.30 H Direct Bilirubin 0.9 H CK-MB (CK-2) C-Reactive Protein NT-Pro-B Natriuret Pep Total Protein 6.2 L Albumin 2.7 L Arterial Blood Glucose Urine WBC (Auto) Urine Creatinine 02/09/20 02/09/20 02/09/20 05:41 12:28 18:07 WBC RBC Hgb Hct MCHC RDW MCV MCH Lymph % (Auto) [facility] % (Auto) [facility] # Eos # Lymph # (Auto) [facility] # (Auto) Eos # (Auto) Seg Neutrophils % Seg Neuts % (Manual) Baso # (Auto) Lymphocytes % (Manual) Monocytes % (Manual) Eosinophils % (Manual) Basophils % (Manual) Seg Neutrophils # Seg Neutrophils # Man Lymphocytes # (Manual) Monocytes # (Manual) Eosinophils # (Manual) Nucleated RBC % Basophils # (Manual) PT INR APTT Heparin Anti-Xa Level ABG pH POC ABG pO2 ABG pO2 ABG HCO3 ABG O2 Saturation ABG Base Excess POC ABG pCO2 ABG Hemoglobin ABG Oxyhemoglobin ABG Chloride ABG Glucose Oxyhemoglobin Sodium Potassium Chloride Carbon Dioxide BUN Creatinine Glucose POC Glucose 113 H 140 H 143 H Lactic Acid Calcium Phosphorus Magnesium AST ALT Lactate Dehydrogenase Total Bilirubin Direct Bilirubin CK-MB (CK-2) C-Reactive Protein NT-Pro-B Natriuret Pep Total Protein Albumin Arterial Blood Glucose Urine WBC (Auto) Urine Creatinine 02/09/20 02/09/20 02/10/20 21:40 23:45 06:00 WBC RBC Hgb Hct MCHC RDW MCV MCH Lymph % (Auto) [facility] % (Auto) [facility] # Eos # Lymph # (Auto) [facility] # (Auto) Eos # (Auto) Seg Neutrophils % Seg Neuts % (Manual) Baso # (Auto) Lymphocytes % (Manual) Monocytes % (Manual) Eosinophils % (Manual) Basophils % (Manual) Seg Neutrophils # Seg Neutrophils # Man Lymphocytes # (Manual) Monocytes # (Manual) Eosinophils # (Manual) Nucleated RBC % Basophils # (Manual) PT INR APTT Heparin Anti-Xa Level ABG pH POC ABG pO2 ABG pO2 59.8 L ABG HCO3 33.3 H ABG O2 Saturation 88.9 L ABG Base Excess 7.4 H POC ABG pCO2 ABG Hemoglobin 10.4 L ABG Oxyhemoglobin ABG Chloride ABG Glucose Oxyhemoglobin 86.3 L Sodium Potassium Chloride Carbon Dioxide BUN Creatinine Glucose POC Glucose 127 H 114 H Lactic Acid Calcium Phosphorus Magnesium AST ALT Lactate Dehydrogenase Total Bilirubin Direct Bilirubin CK-MB (CK-2) C-Reactive Protein NT-Pro-B Natriuret Pep Total Protein Albumin Arterial Blood Glucose Urine WBC (Auto) Urine Creatinine 02/10/20 02/10/20 02/10/20 07:40 07:40 13:38 WBC 11.5 H RBC Hgb 10.6 L Hct 34.7 L MCHC 31 L RDW 19.8 H MCV 79 L MCH 24 L Lymph % (Auto) [facility] % (Auto) 9.2 H [facility] # Eos # Lymph # (Auto) [facility] # (Auto) 1.1 H Eos # (Auto) Seg Neutrophils % Seg Neuts % (Manual) Baso # (Auto) Lymphocytes % (Manual) Monocytes % (Manual) Eosinophils % (Manual) Basophils % (Manual) Seg Neutrophils # Seg Neutrophils # Man Lymphocytes # (Manual) Monocytes # (Manual) Eosinophils # (Manual) Nucleated RBC % Basophils # (Manual) PT INR APTT Heparin Anti-Xa Level ABG pH POC ABG pO2 ABG pO2 ABG HCO3 ABG O2 Saturation ABG Base Excess POC ABG pCO2 ABG Hemoglobin ABG Oxyhemoglobin ABG Chloride ABG Glucose Oxyhemoglobin Sodium 151 H Potassium Chloride 107.2 H Carbon Dioxide 36 H BUN 25 H Creatinine 0.7 L Glucose 114 H POC Glucose 116 H Lactic Acid Calcium Phosphorus Magnesium 2.40 H AST ALT Lactate Dehydrogenase Total Bilirubin Direct Bilirubin CK-MB (CK-2) C-Reactive Protein NT-Pro-B Natriuret Pep Total Protein Albumin Arterial Blood Glucose Urine WBC (Auto) Urine Creatinine 02/10/20 02/11/20 02/11/20 17:44 05:47 12:21 WBC RBC Hgb Hct MCHC RDW MCV MCH Lymph % (Auto) [facility] % (Auto) [facility] # Eos # Lymph # (Auto) [facility] # (Auto) Eos # (Auto) Seg Neutrophils % Seg Neuts % (Manual) Baso # (Auto) Lymphocytes % (Manual) Monocytes % (Manual) Eosinophils % (Manual) Basophils % (Manual) Seg Neutrophils # Seg Neutrophils # Man Lymphocytes # (Manual) Monocytes # (Manual) Eosinophils # (Manual) Nucleated RBC % Basophils # (Manual) PT INR APTT Heparin Anti-Xa Level ABG pH POC ABG pO2 ABG pO2 ABG HCO3 ABG O2 Saturation ABG Base Excess POC ABG pCO2 ABG Hemoglobin ABG Oxyhemoglobin ABG Chloride ABG Glucose Oxyhemoglobin Sodium Potassium Chloride Carbon Dioxide BUN Creatinine Glucose POC Glucose 139 H 173 H 143 H Lactic Acid Calcium Phosphorus Magnesium AST ALT Lactate Dehydrogenase Total Bilirubin Direct Bilirubin CK-MB (CK-2) C-Reactive Protein NT-Pro-B Natriuret Pep Total Protein Albumin Arterial Blood Glucose Urine WBC (Auto) Urine Creatinine 02/11/20 02/11/20 02/12/20 13:43 14:11 00:15 WBC RBC Hgb Hct MCHC RDW MCV MCH Lymph % (Auto) [facility] % (Auto) [facility] # Eos # Lymph # (Auto) [facility] # (Auto) Eos # (Auto) Seg Neutrophils % Seg Neuts % (Manual) Baso # (Auto) Lymphocytes % (Manual) Monocytes % (Manual) Eosinophils % (Manual) Basophils % (Manual) Seg Neutrophils # Seg Neutrophils # Man Lymphocytes # (Manual) Monocytes # (Manual) Eosinophils # (Manual) Nucleated RBC % Basophils # (Manual) PT INR APTT Heparin Anti-Xa Level ABG pH 7.502 H POC ABG pO2 77.7 L ABG pO2 ABG HCO3 ABG O2 Saturation ABG Base Excess POC ABG pCO2 ABG Hemoglobin 11.1 L ABG Oxyhemoglobin ABG Chloride 108.0 H ABG Glucose 151 H Oxyhemoglobin Sodium Potassium Chloride Carbon Dioxide BUN Creatinine Glucose POC Glucose 130 H 125 H Lactic Acid Calcium Phosphorus Magnesium AST ALT Lactate Dehydrogenase Total Bilirubin Direct Bilirubin CK-MB (CK-2) C-Reactive Protein NT-Pro-B Natriuret Pep Total Protein Albumin Arterial Blood Glucose 151 H Urine WBC (Auto) Urine Creatinine 02/12/20 02/12/20 02/12/20 04:56 04:56 17:42 WBC RBC Hgb 9.9 L Hct 31.8 L MCHC 31 L RDW 19.4 H MCV 79 L MCH 25 L Lymph % (Auto) [facility] % (Auto) 10.3 H [facility] # Eos # Lymph # (Auto) [facility] # (Auto) 1.0 H Eos # (Auto) Seg Neutrophils % Seg Neuts % (Manual) Baso # (Auto) Lymphocytes % (Manual) Monocytes % (Manual) Eosinophils % (Manual) Basophils % (Manual) Seg Neutrophils # Seg Neutrophils # Man Lymphocytes # (Manual) Monocytes # (Manual) Eosinophils # (Manual) Nucleated RBC % Basophils # (Manual) PT INR APTT Heparin Anti-Xa Level ABG pH POC ABG pO2 ABG pO2 ABG HCO3 ABG O2 Saturation ABG Base Excess POC ABG pCO2 ABG Hemoglobin ABG Oxyhemoglobin ABG Chloride ABG Glucose Oxyhemoglobin Sodium 149 H Potassium Chloride 108.6 H Carbon Dioxide BUN 28 H Creatinine 0.7 L Glucose 108 H POC Glucose 113 H Lactic Acid Calcium Phosphorus Magnesium AST ALT Lactate Dehydrogenase Total Bilirubin Direct Bilirubin CK-MB (CK-2) C-Reactive Protein NT-Pro-B Natriuret Pep Total Protein Albumin Arterial Blood Glucose Urine WBC (Auto) Urine Creatinine 02/13/20 02/13/20 02/13/20 00:39 05:36 12:25 WBC RBC Hgb Hct MCHC RDW MCV MCH Lymph % (Auto) [facility] % (Auto) [facility] # Eos # Lymph # (Auto) [facility] # (Auto) Eos # (Auto) Seg Neutrophils % Seg Neuts % (Manual) Baso # (Auto) Lymphocytes % (Manual) Monocytes % (Manual) Eosinophils % (Manual) Basophils % (Manual) Seg Neutrophils # Seg Neutrophils # Man Lymphocytes # (Manual) Monocytes # (Manual) Eosinophils # (Manual) Nucleated RBC % Basophils # (Manual) PT INR APTT Heparin Anti-Xa Level ABG pH POC ABG pO2 ABG pO2 ABG HCO3 ABG O2 Saturation ABG Base Excess POC ABG pCO2 ABG Hemoglobin ABG Oxyhemoglobin ABG Chloride ABG Glucose Oxyhemoglobin Sodium Potassium Chloride Carbon Dioxide BUN Creatinine Glucose POC Glucose 129 H 126 H 129 H Lactic Acid Calcium Phosphorus Magnesium AST ALT Lactate Dehydrogenase Total Bilirubin Direct Bilirubin CK-MB (CK-2) C-Reactive Protein NT-Pro-B Natriuret Pep Total Protein Albumin Arterial Blood Glucose Urine WBC (Auto) Urine Creatinine 02/13/20 02/14/20 02/14/20 17:59 00:15 05:41 WBC RBC Hgb Hct MCHC RDW MCV MCH Lymph % (Auto) [facility] % (Auto) [facility] # Eos # Lymph # (Auto) [facility] # (Auto) Eos # (Auto) Seg Neutrophils % Seg Neuts % (Manual) Baso # (Auto) Lymphocytes % (Manual) Monocytes % (Manual) Eosinophils % (Manual) Basophils % (Manual) Seg Neutrophils # Seg Neutrophils # Man Lymphocytes # (Manual) Monocytes # (Manual) Eosinophils # (Manual) Nucleated RBC % Basophils # (Manual) PT INR APTT Heparin Anti-Xa Level ABG pH POC ABG pO2 ABG pO2 ABG HCO3 ABG O2 Saturation ABG Base Excess POC ABG pCO2 ABG Hemoglobin ABG Oxyhemoglobin ABG Chloride ABG Glucose Oxyhemoglobin Sodium Potassium Chloride Carbon Dioxide BUN Creatinine Glucose POC Glucose 153 H 130 H 130 H Lactic Acid Calcium Phosphorus Magnesium AST ALT Lactate Dehydrogenase Total Bilirubin Direct Bilirubin CK-MB (CK-2) C-Reactive Protein NT-Pro-B Natriuret Pep Total Protein Albumin Arterial Blood Glucose Urine WBC (Auto) Urine Creatinine 02/14/20 02/15/20 02/15/20 11:32 00:12 05:27 WBC RBC Hgb Hct MCHC RDW MCV MCH Lymph % (Auto) [facility] % (Auto) [facility] # Eos # Lymph # (Auto) [facility] # (Auto) Eos # (Auto) Seg Neutrophils % Seg Neuts % (Manual) Baso # (Auto) Lymphocytes % (Manual) Monocytes % (Manual) Eosinophils % (Manual) Basophils % (Manual) Seg Neutrophils # Seg Neutrophils # Man Lymphocytes # (Manual) Monocytes # (Manual) Eosinophils # (Manual) Nucleated RBC % Basophils # (Manual) PT INR APTT Heparin Anti-Xa Level ABG pH POC ABG pO2 ABG pO2 ABG HCO3 ABG O2 Saturation ABG Base Excess POC ABG pCO2 ABG Hemoglobin ABG Oxyhemoglobin ABG Chloride ABG Glucose Oxyhemoglobin Sodium Potassium Chloride Carbon Dioxide BUN Creatinine Glucose POC Glucose 157 H 124 H 111 H Lactic Acid Calcium Phosphorus Magnesium AST ALT Lactate Dehydrogenase Total Bilirubin Direct Bilirubin CK-MB (CK-2) C-Reactive Protein NT-Pro-B Natriuret Pep Total Protein Albumin Arterial Blood Glucose Urine WBC (Auto) Urine Creatinine 02/15/20 02/15/20 02/15/20 06:59 06:59 11:14 WBC RBC Hgb 10.4 L Hct 33.7 L MCHC 31 L RDW 19.4 H MCV 80 L MCH 24 L Lymph % (Auto) [facility] % (Auto) [facility] # Eos # Lymph # (Auto) [facility] # (Auto) Eos # (Auto) Seg Neutrophils % Seg Neuts % (Manual) Baso # (Auto) Lymphocytes % (Manual) Monocytes % (Manual) Eosinophils % (Manual) Basophils % (Manual) 2.0 H Seg Neutrophils # Seg Neutrophils # Man Lymphocytes # (Manual) Monocytes # (Manual) Eosinophils # (Manual) Nucleated RBC % 1.0 H Basophils # (Manual) 0.2 H PT INR APTT Heparin Anti-Xa Level ABG pH POC ABG pO2 ABG pO2 ABG HCO3 ABG O2 Saturation ABG Base Excess POC ABG pCO2 ABG Hemoglobin ABG Oxyhemoglobin ABG Chloride ABG Glucose Oxyhemoglobin Sodium 149 H Potassium Chloride 108.4 H Carbon Dioxide 31 H BUN 40 H Creatinine 0.7 L Glucose 150 H POC Glucose 128 H Lactic Acid Calcium Phosphorus Magnesium AST ALT Lactate Dehydrogenase Total Bilirubin Direct Bilirubin CK-MB (CK-2) C-Reactive Protein NT-Pro-B Natriuret Pep Total Protein Albumin Arterial Blood Glucose Urine WBC (Auto) Urine Creatinine 02/15/20 02/15/20 02/16/20 17:46 23:50 05:03 WBC RBC Hgb Hct MCHC RDW MCV MCH Lymph % (Auto) [facility] % (Auto) [facility] # Eos # Lymph # (Auto) [facility] # (Auto) Eos # (Auto) Seg Neutrophils % Seg Neuts % (Manual) Baso # (Auto) Lymphocytes % (Manual) Monocytes % (Manual) Eosinophils % (Manual) Basophils % (Manual) Seg Neutrophils # Seg Neutrophils # Man Lymphocytes # (Manual) Monocytes # (Manual) Eosinophils # (Manual) Nucleated RBC % Basophils # (Manual) PT INR APTT Heparin Anti-Xa Level ABG pH POC ABG pO2 ABG pO2 ABG HCO3 ABG O2 Saturation ABG Base Excess POC ABG pCO2 ABG Hemoglobin ABG Oxyhemoglobin ABG Chloride ABG Glucose Oxyhemoglobin Sodium Potassium Chloride Carbon Dioxide BUN Creatinine Glucose POC Glucose 154 H 135 H 148 H Lactic Acid Calcium Phosphorus Magnesium AST ALT Lactate Dehydrogenase Total Bilirubin Direct Bilirubin CK-MB (CK-2) C-Reactive Protein NT-Pro-B Natriuret Pep Total Protein Albumin Arterial Blood Glucose Urine WBC (Auto) Urine Creatinine 02/16/20 02/16/20 02/16/20 07:53 11:28 17:52 WBC RBC Hgb Hct MCHC RDW MCV MCH Lymph % (Auto) [facility] % (Auto) [facility] # Eos # Lymph # (Auto) [facility] # (Auto) Eos # (Auto) Seg Neutrophils % Seg Neuts % (Manual) Baso # (Auto) Lymphocytes % (Manual) Monocytes % (Manual) Eosinophils % (Manual) Basophils % (Manual) Seg Neutrophils # Seg Neutrophils # Man Lymphocytes # (Manual) Monocytes # (Manual) Eosinophils # (Manual) Nucleated RBC % Basophils # (Manual) PT INR APTT Heparin Anti-Xa Level ABG pH POC ABG pO2 ABG pO2 ABG HCO3 ABG O2 Saturation ABG Base Excess POC ABG pCO2 ABG Hemoglobin ABG Oxyhemoglobin ABG Chloride ABG Glucose Oxyhemoglobin Sodium Potassium Chloride 107.9 H Carbon Dioxide BUN 38 H Creatinine 0.6 L Glucose 151 H POC Glucose 123 H 152 H Lactic Acid Calcium Phosphorus Magnesium AST ALT Lactate Dehydrogenase Total Bilirubin Direct Bilirubin CK-MB (CK-2) C-Reactive Protein NT-Pro-B Natriuret Pep Total Protein Albumin Arterial Blood Glucose Urine WBC (Auto) Urine Creatinine 02/16/20 02/17/20 02/17/20 23:49 06:24 11:36 WBC RBC Hgb Hct MCHC RDW MCV MCH Lymph % (Auto) [facility] % (Auto) [facility] # Eos # Lymph # (Auto) [facility] # (Auto) Eos # (Auto) Seg Neutrophils % Seg Neuts % (Manual) Baso # (Auto) Lymphocytes % (Manual) Monocytes % (Manual) Eosinophils % (Manual) Basophils % (Manual) Seg Neutrophils # Seg Neutrophils # Man Lymphocytes # (Manual) Monocytes # (Manual) Eosinophils # (Manual) Nucleated RBC % Basophils # (Manual) PT INR APTT Heparin Anti-Xa Level ABG pH POC ABG pO2 ABG pO2 ABG HCO3 ABG O2 Saturation ABG Base Excess POC ABG pCO2 ABG Hemoglobin ABG Oxyhemoglobin ABG Chloride ABG Glucose Oxyhemoglobin Sodium Potassium Chloride Carbon Dioxide BUN Creatinine Glucose POC Glucose 156 H 193 H 162 H Lactic Acid Calcium Phosphorus Magnesium AST ALT Lactate Dehydrogenase Total Bilirubin Direct Bilirubin CK-MB (CK-2) C-Reactive Protein NT-Pro-B Natriuret Pep Total Protein Albumin Arterial Blood Glucose Urine WBC (Auto) Urine Creatinine 02/17/20 02/17/20 02/18/20 17:55 23:28 05:11 WBC RBC Hgb Hct MCHC RDW MCV MCH Lymph % (Auto) [facility] % (Auto) [facility] # Eos # Lymph # (Auto) [facility] # (Auto) Eos # (Auto) Seg Neutrophils % Seg Neuts % (Manual) Baso # (Auto) Lymphocytes % (Manual) Monocytes % (Manual) Eosinophils % (Manual) Basophils % (Manual) Seg Neutrophils # Seg Neutrophils # Man Lymphocytes # (Manual) Monocytes # (Manual) Eosinophils # (Manual) Nucleated RBC % Basophils # (Manual) PT INR APTT Heparin Anti-Xa Level ABG pH POC ABG pO2 ABG pO2 ABG HCO3 ABG O2 Saturation ABG Base Excess POC ABG pCO2 ABG Hemoglobin ABG Oxyhemoglobin ABG Chloride ABG Glucose Oxyhemoglobin Sodium Potassium Chloride Carbon Dioxide BUN Creatinine Glucose POC Glucose 165 H 146 H 122 H Lactic Acid Calcium Phosphorus Magnesium AST ALT Lactate Dehydrogenase Total Bilirubin Direct Bilirubin CK-MB (CK-2) C-Reactive Protein NT-Pro-B Natriuret Pep Total Protein Albumin Arterial Blood Glucose Urine WBC (Auto) Urine Creatinine 02/18/20 02/18/20 02/19/20 12:24 17:29 00:01 WBC RBC Hgb Hct MCHC RDW MCV MCH Lymph % (Auto) [facility] % (Auto) [facility] # Eos # Lymph # (Auto) [facility] # (Auto) Eos # (Auto) Seg Neutrophils % Seg Neuts % (Manual) Baso # (Auto) Lymphocytes % (Manual) Monocytes % (Manual) Eosinophils % (Manual) Basophils % (Manual) Seg Neutrophils # Seg Neutrophils # Man Lymphocytes # (Manual) Monocytes # (Manual) Eosinophils # (Manual) Nucleated RBC % Basophils # (Manual) PT INR APTT Heparin Anti-Xa Level ABG pH POC ABG pO2 ABG pO2 ABG HCO3 ABG O2 Saturation ABG Base Excess POC ABG pCO2 ABG Hemoglobin ABG Oxyhemoglobin ABG Chloride ABG Glucose Oxyhemoglobin Sodium Potassium Chloride Carbon Dioxide BUN Creatinine Glucose POC Glucose 162 H 136 H 145 H Lactic Acid Calcium Phosphorus Magnesium AST ALT Lactate Dehydrogenase Total Bilirubin Direct Bilirubin CK-MB (CK-2) C-Reactive Protein NT-Pro-B Natriuret Pep Total Protein Albumin Arterial Blood Glucose Urine WBC (Auto) Urine Creatinine 02/19/20 02/19/20 02/19/20 05:53 11:44 17:32 WBC RBC Hgb Hct MCHC RDW MCV MCH Lymph % (Auto) [facility] % (Auto) [facility] # Eos # Lymph # (Auto) [facility] # (Auto) Eos # (Auto) Seg Neutrophils % Seg Neuts % (Manual) Baso # (Auto) Lymphocytes % (Manual) Monocytes % (Manual) Eosinophils % (Manual) Basophils % (Manual) Seg Neutrophils # Seg Neutrophils # Man Lymphocytes # (Manual) Monocytes # (Manual) Eosinophils # (Manual) Nucleated RBC % Basophils # (Manual) PT INR APTT Heparin Anti-Xa Level ABG pH POC ABG pO2 ABG pO2 ABG HCO3 ABG O2 Saturation ABG Base Excess POC ABG pCO2 ABG Hemoglobin ABG Oxyhemoglobin ABG Chloride ABG Glucose Oxyhemoglobin Sodium Potassium Chloride Carbon Dioxide BUN Creatinine Glucose POC Glucose 116 H 120 H 154 H Lactic Acid Calcium Phosphorus Magnesium AST ALT Lactate Dehydrogenase Total Bilirubin Direct Bilirubin CK-MB (CK-2) C-Reactive Protein NT-Pro-B Natriuret Pep Total Protein Albumin Arterial Blood Glucose Urine WBC (Auto) Urine Creatinine 02/19/20 02/20/20 02/20/20 23:43 00:24 00:24 WBC RBC Hgb 9.4 L Hct 30.0 L MCHC 31 L RDW 20.4 H MCV 79 L MCH 25 L Lymph % (Auto) [facility] % (Auto) 8.5 H [facility] # Eos # Lymph # (Auto) [facility] # (Auto) Eos # (Auto) Seg Neutrophils % Seg Neuts % (Manual) Baso # (Auto) Lymphocytes % (Manual) Monocytes % (Manual) Eosinophils % (Manual) Basophils % (Manual) Seg Neutrophils # Seg Neutrophils # Man Lymphocytes # (Manual) Monocytes # (Manual) Eosinophils # (Manual) Nucleated RBC % Basophils # (Manual) PT INR APTT Heparin Anti-Xa Level ABG pH POC ABG pO2 ABG pO2 ABG HCO3 ABG O2 Saturation ABG Base Excess POC ABG pCO2 ABG Hemoglobin ABG Oxyhemoglobin ABG Chloride ABG Glucose Oxyhemoglobin Sodium 147 H Potassium 3.4 L Chloride Carbon Dioxide 31 H BUN 34 H Creatinine 0.5 L Glucose 135 H POC Glucose 122 H Lactic Acid Calcium Phosphorus Magnesium AST ALT Lactate Dehydrogenase Total Bilirubin Direct Bilirubin CK-MB (CK-2) C-Reactive Protein NT-Pro-B Natriuret Pep Total Protein Albumin Arterial Blood Glucose Urine WBC (Auto) Urine Creatinine 02/20/20 02/20/20 02/20/20 06:07 06:45 12:03 WBC RBC Hgb Hct MCHC RDW MCV MCH Lymph % (Auto) [facility] % (Auto) [facility] # Eos # Lymph # (Auto) [facility] # (Auto) Eos # (Auto) Seg Neutrophils % Seg Neuts % (Manual) Baso # (Auto) Lymphocytes % (Manual) Monocytes % (Manual) Eosinophils % (Manual) Basophils % (Manual) Seg Neutrophils # Seg Neutrophils # Man Lymphocytes # (Manual) Monocytes # (Manual) Eosinophils # (Manual) Nucleated RBC % Basophils # (Manual) PT INR APTT Heparin Anti-Xa Level ABG pH 7.461 H POC ABG pO2 ABG pO2 ABG HCO3 33.3 H ABG O2 Saturation ABG Base Excess 8.4 H POC ABG pCO2 ABG Hemoglobin 10.0 L ABG Oxyhemoglobin ABG Chloride ABG Glucose Oxyhemoglobin 94.1 L Sodium Potassium Chloride Carbon Dioxide BUN Creatinine Glucose POC Glucose 109 H 128 H Lactic Acid Calcium Phosphorus Magnesium AST ALT Lactate Dehydrogenase Total Bilirubin Direct Bilirubin CK-MB (CK-2) C-Reactive Protein NT-Pro-B Natriuret Pep Total Protein Albumin Arterial Blood Glucose Urine WBC (Auto) Urine Creatinine 02/20/20 02/20/20 02/21/20 18:02 23:55 05:42 WBC RBC Hgb Hct MCHC RDW MCV MCH Lymph % (Auto) [facility] % (Auto) [facility] # Eos # Lymph # (Auto) [facility] # (Auto) Eos # (Auto) Seg Neutrophils % Seg Neuts % (Manual) Baso # (Auto) Lymphocytes % (Manual) Monocytes % (Manual) Eosinophils % (Manual) Basophils % (Manual) Seg Neutrophils # Seg Neutrophils # Man Lymphocytes # (Manual) Monocytes # (Manual) Eosinophils # (Manual) Nucleated RBC % Basophils # (Manual) PT INR APTT Heparin Anti-Xa Level ABG pH POC ABG pO2 ABG pO2 ABG HCO3 ABG O2 Saturation ABG Base Excess POC ABG pCO2 ABG Hemoglobin ABG Oxyhemoglobin ABG Chloride ABG Glucose Oxyhemoglobin Sodium Potassium Chloride Carbon Dioxide BUN Creatinine Glucose POC Glucose 118 H 125 H 127 H Lactic Acid Calcium Phosphorus Magnesium AST ALT Lactate Dehydrogenase Total Bilirubin Direct Bilirubin CK-MB (CK-2) C-Reactive Protein NT-Pro-B Natriuret Pep Total Protein Albumin Arterial Blood Glucose Urine WBC (Auto) Urine Creatinine 02/21/20 02/21/20 02/21/20 12:10 17:35 23:40 WBC RBC Hgb Hct MCHC RDW MCV MCH Lymph % (Auto) [facility] % (Auto) [facility] # Eos # Lymph # (Auto) [facility] # (Auto) Eos # (Auto) Seg Neutrophils % Seg Neuts % (Manual) Baso # (Auto) Lymphocytes % (Manual) Monocytes % (Manual) Eosinophils % (Manual) Basophils % (Manual) Seg Neutrophils # Seg Neutrophils # Man Lymphocytes # (Manual) Monocytes # (Manual) Eosinophils # (Manual) Nucleated RBC % Basophils # (Manual) PT INR APTT Heparin Anti-Xa Level ABG pH POC ABG pO2 ABG pO2 ABG HCO3 ABG O2 Saturation ABG Base Excess POC ABG pCO2 ABG Hemoglobin ABG Oxyhemoglobin ABG Chloride ABG Glucose Oxyhemoglobin Sodium Potassium Chloride Carbon Dioxide BUN Creatinine Glucose POC Glucose 128 H 113 H 125 H Lactic Acid Calcium Phosphorus Magnesium AST ALT Lactate Dehydrogenase Total Bilirubin Direct Bilirubin CK-MB (CK-2) C-Reactive Protein NT-Pro-B Natriuret Pep Total Protein Albumin Arterial Blood Glucose Urine WBC (Auto) Urine Creatinine 02/22/20 02/22/20 02/22/20 05:57 08:06 08:06 WBC RBC Hgb 10.8 L Hct 35.2 L MCHC 31 L RDW 21.8 H MCV 80 L MCH 25 L Lymph % (Auto) [facility] % (Auto) [facility] # Eos # Lymph # (Auto) [facility] # (Auto) Eos # (Auto) Seg Neutrophils % 71.5 H Seg Neuts % (Manual) Baso # (Auto) Lymphocytes % (Manual) Monocytes % (Manual) Eosinophils % (Manual) Basophils % (Manual) Seg Neutrophils # Seg Neutrophils # Man Lymphocytes # (Manual) Monocytes # (Manual) Eosinophils # (Manual) Nucleated RBC % Basophils # (Manual) PT INR APTT Heparin Anti-Xa Level ABG pH POC ABG pO2 ABG pO2 ABG HCO3 ABG O2 Saturation ABG Base Excess POC ABG pCO2 ABG Hemoglobin ABG Oxyhemoglobin ABG Chloride ABG Glucose Oxyhemoglobin Sodium 146 H Potassium Chloride Carbon Dioxide 34 H BUN 21 H Creatinine 0.4 L Glucose 149 H POC Glucose 138 H Lactic Acid Calcium Phosphorus Magnesium AST ALT Lactate Dehydrogenase Total Bilirubin Direct Bilirubin CK-MB (CK-2) C-Reactive Protein NT-Pro-B Natriuret Pep Total Protein Albumin Arterial Blood Glucose Urine WBC (Auto) Urine Creatinine 02/22/20 02/22/20 02/22/20 11:47 17:11 23:25 WBC RBC Hgb Hct MCHC RDW MCV MCH Lymph % (Auto) [facility] % (Auto) [facility] # Eos # Lymph # (Auto) [facility] # (Auto) Eos # (Auto) Seg Neutrophils % Seg Neuts % (Manual) Baso # (Auto) Lymphocytes % (Manual) Monocytes % (Manual) Eosinophils % (Manual) Basophils % (Manual) Seg Neutrophils # Seg Neutrophils # Man Lymphocytes # (Manual) Monocytes # (Manual) Eosinophils # (Manual) Nucleated RBC % Basophils # (Manual) PT INR APTT Heparin Anti-Xa Level ABG pH POC ABG pO2 ABG pO2 ABG HCO3 ABG O2 Saturation ABG Base Excess POC ABG pCO2 ABG Hemoglobin ABG Oxyhemoglobin ABG Chloride ABG Glucose Oxyhemoglobin Sodium Potassium Chloride Carbon Dioxide BUN Creatinine Glucose POC Glucose 149 H 144 H 142 H Lactic Acid Calcium Phosphorus Magnesium AST ALT Lactate Dehydrogenase Total Bilirubin Direct Bilirubin CK-MB (CK-2) C-Reactive Protein NT-Pro-B Natriuret Pep Total Protein Albumin Arterial Blood Glucose Urine WBC (Auto) Urine Creatinine 02/23/20 02/23/20 02/23/20 05:22 11:37 18:14 WBC RBC Hgb Hct MCHC RDW MCV MCH Lymph % (Auto) [facility] % (Auto) [facility] # Eos # Lymph # (Auto) [facility] # (Auto) Eos # (Auto) Seg Neutrophils % Seg Neuts % (Manual) Baso # (Auto) Lymphocytes % (Manual) Monocytes % (Manual) Eosinophils % (Manual) Basophils % (Manual) Seg Neutrophils # Seg Neutrophils # Man Lymphocytes # (Manual) Monocytes # (Manual) Eosinophils # (Manual) Nucleated RBC % Basophils # (Manual) PT INR APTT Heparin Anti-Xa Level ABG pH POC ABG pO2 ABG pO2 ABG HCO3 ABG O2 Saturation ABG Base Excess POC ABG pCO2 ABG Hemoglobin ABG Oxyhemoglobin ABG Chloride ABG Glucose Oxyhemoglobin Sodium Potassium Chloride Carbon Dioxide BUN Creatinine Glucose POC Glucose 144 H 113 H 127 H Lactic Acid Calcium Phosphorus Magnesium AST ALT Lactate Dehydrogenase Total Bilirubin Direct Bilirubin CK-MB (CK-2) C-Reactive Protein NT-Pro-B Natriuret Pep Total Protein Albumin Arterial Blood Glucose Urine WBC (Auto) Urine Creatinine 02/23/20 02/24/20 02/24/20 23:45 05:50 11:24 WBC RBC Hgb Hct MCHC RDW MCV MCH Lymph % (Auto) [facility] % (Auto) [facility] # Eos # Lymph # (Auto) [facility] # (Auto) Eos # (Auto) Seg Neutrophils % Seg Neuts % (Manual) Baso # (Auto) Lymphocytes % (Manual) Monocytes % (Manual) Eosinophils % (Manual) Basophils % (Manual) Seg Neutrophils # Seg Neutrophils # Man Lymphocytes # (Manual) Monocytes # (Manual) Eosinophils # (Manual) Nucleated RBC % Basophils # (Manual) PT INR APTT Heparin Anti-Xa Level ABG pH POC ABG pO2 ABG pO2 ABG HCO3 ABG O2 Saturation ABG Base Excess POC ABG pCO2 ABG Hemoglobin ABG Oxyhemoglobin ABG Chloride ABG Glucose Oxyhemoglobin Sodium Potassium Chloride Carbon Dioxide BUN Creatinine Glucose POC Glucose 123 H 117 H 126 H Lactic Acid Calcium Phosphorus Magnesium AST ALT Lactate Dehydrogenase Total Bilirubin Direct Bilirubin CK-MB (CK-2) C-Reactive Protein NT-Pro-B Natriuret Pep Total Protein Albumin Arterial Blood Glucose Urine WBC (Auto) Urine Creatinine 02/24/20 02/24/20 02/25/20 18:35 23:27 05:20 WBC RBC Hgb Hct MCHC RDW MCV MCH Lymph % (Auto) [facility] % (Auto) [facility] # Eos # Lymph # (Auto) [facility] # (Auto) Eos # (Auto) Seg Neutrophils % Seg Neuts % (Manual) Baso # (Auto) Lymphocytes % (Manual) Monocytes % (Manual) Eosinophils % (Manual) Basophils % (Manual) Seg Neutrophils # Seg Neutrophils # Man Lymphocytes # (Manual) Monocytes # (Manual) Eosinophils # (Manual) Nucleated RBC % Basophils # (Manual) PT INR APTT Heparin Anti-Xa Level ABG pH POC ABG pO2 ABG pO2 ABG HCO3 ABG O2 Saturation ABG Base Excess POC ABG pCO2 ABG Hemoglobin ABG Oxyhemoglobin ABG Chloride ABG Glucose Oxyhemoglobin Sodium Potassium Chloride Carbon Dioxide BUN Creatinine Glucose POC Glucose 121 H 127 H 133 H Lactic Acid Calcium Phosphorus Magnesium AST ALT Lactate Dehydrogenase Total Bilirubin Direct Bilirubin CK-MB (CK-2) C-Reactive Protein NT-Pro-B Natriuret Pep Total Protein Albumin Arterial Blood Glucose Urine WBC (Auto) Urine Creatinine 02/25/20 02/25/20 02/25/20 12:08 17:26 23:33 WBC RBC Hgb Hct MCHC RDW MCV MCH Lymph % (Auto) [facility] % (Auto) [facility] # Eos # Lymph # (Auto) [facility] # (Auto) Eos # (Auto) Seg Neutrophils % Seg Neuts % (Manual) Baso # (Auto) Lymphocytes % (Manual) Monocytes % (Manual) Eosinophils % (Manual) Basophils % (Manual) Seg Neutrophils # Seg Neutrophils # Man Lymphocytes # (Manual) Monocytes # (Manual) Eosinophils # (Manual) Nucleated RBC % Basophils # (Manual) PT INR APTT Heparin Anti-Xa Level ABG pH POC ABG pO2 ABG pO2 ABG HCO3 ABG O2 Saturation ABG Base Excess POC ABG pCO2 ABG Hemoglobin ABG Oxyhemoglobin ABG Chloride ABG Glucose Oxyhemoglobin Sodium Potassium Chloride Carbon Dioxide BUN Creatinine Glucose POC Glucose 109 H 120 H 120 H Lactic Acid Calcium Phosphorus Magnesium AST ALT Lactate Dehydrogenase Total Bilirubin Direct Bilirubin CK-MB (CK-2) C-Reactive Protein NT-Pro-B Natriuret Pep Total Protein Albumin Arterial Blood Glucose Urine WBC (Auto) Urine Creatinine 02/26/20 02/26/20 02/27/20 05:33 07:50 12:13 WBC RBC Hgb Hct MCHC RDW MCV MCH Lymph % (Auto) [facility] % (Auto) [facility] # Eos # Lymph # (Auto) [facility] # (Auto) Eos # (Auto) Seg Neutrophils % Seg Neuts % (Manual) Baso # (Auto) Lymphocytes % (Manual) Monocytes % (Manual) Eosinophils % (Manual) Basophils % (Manual) Seg Neutrophils # Seg Neutrophils # Man Lymphocytes # (Manual) Monocytes # (Manual) Eosinophils # (Manual) Nucleated RBC % Basophils # (Manual) PT INR APTT Heparin Anti-Xa Level ABG pH POC ABG pO2 ABG pO2 ABG HCO3 ABG O2 Saturation ABG Base Excess POC ABG pCO2 ABG Hemoglobin ABG Oxyhemoglobin ABG Chloride ABG Glucose Oxyhemoglobin Sodium Potassium Chloride Carbon Dioxide BUN Creatinine Glucose POC Glucose 106 H 130 H Lactic Acid Calcium Phosphorus Magnesium AST ALT Lactate Dehydrogenase Total Bilirubin Direct Bilirubin CK-MB (CK-2) C-Reactive Protein NT-Pro-B Natriuret Pep Total Protein Albumin Arterial Blood Glucose Urine WBC (Auto) > 182.0 H Urine Creatinine 02/27/20 02/27/20 02/28/20 18:20 23:33 05:01 WBC RBC Hgb Hct MCHC RDW MCV MCH Lymph % (Auto) [facility] % (Auto) [facility] # Eos # Lymph # (Auto) [facility] # (Auto) Eos # (Auto) Seg Neutrophils % Seg Neuts % (Manual) Baso # (Auto) Lymphocytes % (Manual) Monocytes % (Manual) Eosinophils % (Manual) Basophils % (Manual) Seg Neutrophils # Seg Neutrophils # Man Lymphocytes # (Manual) Monocytes # (Manual) Eosinophils # (Manual) Nucleated RBC % Basophils # (Manual) PT INR APTT Heparin Anti-Xa Level ABG pH POC ABG pO2 ABG pO2 ABG HCO3 ABG O2 Saturation ABG Base Excess POC ABG pCO2 ABG Hemoglobin ABG Oxyhemoglobin ABG Chloride ABG Glucose Oxyhemoglobin Sodium Potassium Chloride Carbon Dioxide BUN Creatinine Glucose POC Glucose 109 H 124 H 134 H Lactic Acid Calcium Phosphorus Magnesium AST ALT Lactate Dehydrogenase Total Bilirubin Direct Bilirubin CK-MB (CK-2) C-Reactive Protein NT-Pro-B Natriuret Pep Total Protein Albumin Arterial Blood Glucose Urine WBC (Auto) Urine Creatinine 02/28/20 02/28/20 02/28/20 11:54 18:16 23:03 WBC RBC Hgb Hct MCHC RDW MCV MCH Lymph % (Auto) [facility] % (Auto) [facility] # Eos # Lymph # (Auto) [facility] # (Auto) Eos # (Auto) Seg Neutrophils % Seg Neuts % (Manual) Baso # (Auto) Lymphocytes % (Manual) Monocytes % (Manual) Eosinophils % (Manual) Basophils % (Manual) Seg Neutrophils # Seg Neutrophils # Man Lymphocytes # (Manual) Monocytes # (Manual) Eosinophils # (Manual) Nucleated RBC % Basophils # (Manual) PT INR APTT Heparin Anti-Xa Level ABG pH POC ABG pO2 ABG pO2 ABG HCO3 ABG O2 Saturation ABG Base Excess POC ABG pCO2 ABG Hemoglobin ABG Oxyhemoglobin ABG Chloride ABG Glucose Oxyhemoglobin Sodium Potassium Chloride Carbon Dioxide BUN Creatinine Glucose POC Glucose 133 H 134 H 146 H Lactic Acid Calcium Phosphorus Magnesium AST ALT Lactate Dehydrogenase Total Bilirubin Direct Bilirubin CK-MB (CK-2) C-Reactive Protein NT-Pro-B Natriuret Pep Total Protein Albumin Arterial Blood Glucose Urine WBC (Auto) Urine Creatinine 02/29/20 02/29/20 02/29/20 05:24 11:34 17:12 WBC RBC Hgb Hct MCHC RDW MCV MCH Lymph % (Auto) [facility] % (Auto) [facility] # Eos # Lymph # (Auto) [facility] # (Auto) Eos # (Auto) Seg Neutrophils % Seg Neuts % (Manual) Baso # (Auto) Lymphocytes % (Manual) Monocytes % (Manual) Eosinophils % (Manual) Basophils % (Manual) Seg Neutrophils # Seg Neutrophils # Man Lymphocytes # (Manual) Monocytes # (Manual) Eosinophils # (Manual) Nucleated RBC % Basophils # (Manual) PT INR APTT Heparin Anti-Xa Level ABG pH POC ABG pO2 ABG pO2 ABG HCO3 ABG O2 Saturation ABG Base Excess POC ABG pCO2 ABG Hemoglobin ABG Oxyhemoglobin ABG Chloride ABG Glucose Oxyhemoglobin Sodium Potassium Chloride Carbon Dioxide BUN Creatinine Glucose POC Glucose 139 H 141 H 157 H Lactic Acid Calcium Phosphorus Magnesium AST ALT Lactate Dehydrogenase Total Bilirubin Direct Bilirubin CK-MB (CK-2) C-Reactive Protein NT-Pro-B Natriuret Pep Total Protein Albumin Arterial Blood Glucose Urine WBC (Auto) Urine Creatinine 02/29/20 03/01/20 03/01/20 23:35 06:00 11:53 WBC RBC Hgb Hct MCHC RDW MCV MCH Lymph % (Auto) [facility] % (Auto) [facility] # Eos # Lymph # (Auto) [facility] # (Auto) Eos # (Auto) Seg Neutrophils % Seg Neuts % (Manual) Baso # (Auto) Lymphocytes % (Manual) Monocytes % (Manual) Eosinophils % (Manual) Basophils % (Manual) Seg Neutrophils # Seg Neutrophils # Man Lymphocytes # (Manual) Monocytes # (Manual) Eosinophils # (Manual) Nucleated RBC % Basophils # (Manual) PT INR APTT Heparin Anti-Xa Level ABG pH POC ABG pO2 ABG pO2 ABG HCO3 ABG O2 Saturation ABG Base Excess POC ABG pCO2 ABG Hemoglobin ABG Oxyhemoglobin ABG Chloride ABG Glucose Oxyhemoglobin Sodium Potassium Chloride Carbon Dioxide BUN Creatinine Glucose POC Glucose 120 H 132 H 136 H Lactic Acid Calcium Phosphorus Magnesium AST ALT Lactate Dehydrogenase Total Bilirubin Direct Bilirubin CK-MB (CK-2) C-Reactive Protein NT-Pro-B Natriuret Pep Total Protein Albumin Arterial Blood Glucose Urine WBC (Auto) Urine Creatinine 03/01/20 03/01/20 03/02/20 17:36 23:16 05:12 WBC RBC Hgb Hct MCHC RDW MCV MCH Lymph % (Auto) [facility] % (Auto) [facility] # Eos # Lymph # (Auto) [facility] # (Auto) Eos # (Auto) Seg Neutrophils % Seg Neuts % (Manual) Baso # (Auto) Lymphocytes % (Manual) Monocytes % (Manual) Eosinophils % (Manual) Basophils % (Manual) Seg Neutrophils # Seg Neutrophils # Man Lymphocytes # (Manual) Monocytes # (Manual) Eosinophils # (Manual) Nucleated RBC % Basophils # (Manual) PT INR APTT Heparin Anti-Xa Level ABG pH POC ABG pO2 ABG pO2 ABG HCO3 ABG O2 Saturation ABG Base Excess POC ABG pCO2 ABG Hemoglobin ABG Oxyhemoglobin ABG Chloride ABG Glucose Oxyhemoglobin Sodium Potassium Chloride Carbon Dioxide BUN Creatinine Glucose POC Glucose 171 H 164 H 176 H Lactic Acid Calcium Phosphorus Magnesium AST ALT Lactate Dehydrogenase Total Bilirubin Direct Bilirubin CK-MB (CK-2) C-Reactive Protein NT-Pro-B Natriuret Pep Total Protein Albumin Arterial Blood Glucose Urine WBC (Auto) Urine Creatinine 03/02/20 03/02/20 11:42 18:01 WBC RBC Hgb Hct MCHC RDW MCV MCH Lymph % (Auto) [facility] % (Auto) [facility] # Eos # Lymph # (Auto) [facility] # (Auto) Eos # (Auto) Seg Neutrophils % Seg Neuts % (Manual) Baso # (Auto) Lymphocytes % (Manual) Monocytes % (Manual) Eosinophils % (Manual) Basophils % (Manual) Seg Neutrophils # Seg Neutrophils # Man Lymphocytes # (Manual) Monocytes # (Manual) Eosinophils # (Manual) Nucleated RBC % Basophils # (Manual) PT INR APTT Heparin Anti-Xa Level ABG pH POC ABG pO2 ABG pO2 ABG HCO3 ABG O2 Saturation ABG Base Excess POC ABG pCO2 ABG Hemoglobin ABG Oxyhemoglobin ABG Chloride ABG Glucose Oxyhemoglobin Sodium Potassium Chloride Carbon Dioxide BUN Creatinine Glucose POC Glucose 150 H 156 H Lactic Acid Calcium Phosphorus Magnesium AST ALT Lactate Dehydrogenase Total Bilirubin Direct Bilirubin CK-MB (CK-2) C-Reactive Protein NT-Pro-B Natriuret Pep Total Protein Albumin Arterial Blood Glucose Urine WBC (Auto) Urine Creatinine Allied health notes reviewed: nursing
[2020-03-02] MEDS: TAMSULOSIN 0.4 MG CAP PO SCH (21:17)
[2020-03-02] MEDS: POLYETHYLENE GLYCOL 3350 17 GM POWDER PO SCH (21:18)
[2020-03-03] MEDS: INSULIN REGULAR, HUMAN 100 UNIT/ML 3ML VIAL SUB-Q SCH ×4 (01:24→17:24)
[2020-03-03] MEDS: MORPHINE 2 MG/1 ML INJ IV PRN ×2 (01:45→10:05)
[2020-03-03] MEDS: METOPROLOL TARTRATE 5 MG/5 ML INJ IV PRN (01:46)
[2020-03-03] MEDS: HALOPERIDOL LACTATE 5 MG/1 ML INJ IV PRN (02:25)
--- NOTE | 2020-03-03 08:47 | Progress Note ---
Assessment and Plan Assessment and plan: --Ischemic cardiomyopathy Cardiology is following, status post cardiac catheterization on 01/22/2020; Cor onary artery disease status post PCI and stent to the LAD Continue current cardiac medications --Acute on chronic hypoxemic respiratory failure; Patient has tracheostomy on vent Continue nebulizers, , trach care Wean off ventilator as tolerated Pulmonary critical following --Acute exacerbation of COPD; Patient is currently on ventilatory support Continue nebulizers --Left lower lobe PE; Continue Eliquis, ventilatory support --Acute right lower extremity DVT; Patient is on Eliquis --Bilateral multifocal pneumonia/community-acquired Completed antibiotics, improved --Severe sepsis/bilateral pneumonia: Completed antibiotics COVID-19 test; 11/24/2019; negative 11/26/2019; negative 12/29/2019: Negative --Paroxysmal atrial fibrillation; Now rate controlled, Stable on amiodarone and Eliquis --Acute on chronic combined systolic and diastolic congestive heart failure Ischemic cardiomyopathy left ventricular ejection fraction 40 to 45% --H/o CAD [[facility] 12/2018 in-stent restenosis] Patient is stable on current cardiac medications --Hypertensive emergency; present on admission Reasonable blood pressures, continue current antihypertensives As needed medications --History of alcohol abuse/alcohol withdrawal; Was on CIWA protocol, now stable --Oropharyngeal dysphagia; status post PEG placement Continue PEG feeds per protocol --History of partial small bowel obstruction; resolved --Obesity; BMI 34.7 Patient needs weight reduction when medically stable --Severe protein calorie malnutrition/hypoalbuminemia Nutrition supplements, dietitian following, PEG feeds --DVT prophylaxis;Eliquis --Full CODE STATUS Discharge planning 01/05; Pt stable. NGT output 650cc over 24 hours, bilious. No f/c, WBC within normal limits. cont NG suction and cont to hold TF 01/06: Abs series - mild improvement in small bowel distension in mid abdomen, normal gas/stool pattern in colon. NGT in duodenum. Continue to hold tube feeding, maintain NG tube with low intermittent suction. Patient's was updated by phone. Continue to provide supportive care and monitor clinically. 01/07: +BMs today and NGT/PEG output appears more gastric today. Plan to clamp NGT, if tolerates start TF from tomorrow. cont supportive care. 01/08; Gastric output decreased over last 24 hours. NGT has been clamped x 24 hours. plan to dc NGT and to start TTF via PEG - vital HF @10cc/hr 01/09: clinically stable, tolerating TF. monitor BMP, wean off from vent as tolerated clinically stable, on TF. wean off vent as tolerated 01/11: wean off from vent, cont to monitor, on TF 01/12: wean off from vent, cont to monitor, on TF. need placement - unfunded 01/13; remains on ventilatory support, unable to wean, DC planning possible LTAC, unfunded 01/14; patient of ventilatory support, T-piece tracheostomy on oxygen, LTAC placement per case management 01/16; tracheostomy, patient on full ventilatory support, wean off vent support as tolerated, pending LTAC placement, social financial issues 01/17; awaiting LTAC placement, insurance and financial issues 01/18; patient tracheostomy remains on ventilatory support 01/19; wean off ventilator as tolerated 01/20; remains on ventilatory support, patient complains of intermittent chest pain, cardiology recommend left heart catheterization tomorrow 01/22/2020. Patient for left heart catheterization per cardiology. Patient remains on AC mode ventilation rate 12, tidal volume 450, FiO2 30% and PEEP of 6. Continue tracheostomy care, airway management and secretion control. 01/23/2020. Cardiac catheterization completed yesterday revealed widely patent previous LAD stent with mild nonobstructive atherosclerosis of the right mid coronary artery and rest of the coronary system was without significant atherosclerosis. The left ventricle ejection fraction was mildly impaired at 40 to 45%. There was some hypokinesis of the basal inferior wall suggestive of previous or recent infarct. Continue GDMT for coronary artery disease including beta blockers, topical nitrates, statin and Plavix. Continue Eliquis for paroxysmal atrial fibrillation and PE. Continue diuresis with Lasix and follow electrolytes closely. Continue Robinul and scopolamine for secretion control and daily SBT per pulmonary. Also, continue bronchodilators and routine trach care/airway management. T-piece trials per pulmonary as tolerated. 01/24/2020. Recent cardiac catheterization has documented widely patent left anterior descending artery stent with minimal nonobstructive diffuse coronary artery disease in the rest of the coronary arteries. Evidence of ischemic cardiomyopathy with inferior wall hypokinesis. Continue with guideline directed medical therapy. Continue Robinul and scopolamine for secretion control and daily SBT per pulmonary. Continue bronchodilators and routine trach care/airway management. T-piece trials per pulmonary as tolerated. 01/25/2020. Continue with guideline directed medical therapy for systolic heart failure. Cardiac catheterization revealed evidence of ischemic cardiomyopathy with inferior wall hypokinesis (EF 40-45%). Patient currently on T-piece with oxygen 10 L/min FiO2 40%. Continue Robinul and scopolamine for secretion c ontrol. Continue bronchodilators and routine trach care/airway management. 02/03: Mental status more improved, agree with Reglan will change to IV scheduled for two days, no new vomiting. Pseudomonas A in Sputum. 02/04: Clinical improving, amiodarone discontinued due to LFTs, continue Metoprolol.d/w GI, started on Golytely to clear impaction. Started on dialy Miralax. 02/05: Continue supportive care. Noted bowel movement, continue bowel regimen 02/06: Cardiology input noted beta-hebert increased for better suppression of atrial fibrillation. Continue to monitor, no other evidence of nausea vomiting noted. Discussed with respiratory therapist will be continued on weaning protocol with pressure support today. 02/07: Patient successfully weaned off the ventilator, No new complaints, co ntinue monitoring, BM noted, Discussed with pulmonary, 02/08; tracheostomy on T-piece, patient is more alert and awake today 02/09; clinically no change, tracheostomy on vent 02/10; tracheostomy on vent, full CODE STATUS, poor prognosis, 02/11; clinically no change, remains on ventilatory support, full CODE STATUS, discussed with spouse Ms. Paulette Araiza extensively today 02/12. Patient resting comfortably no change on vent with tracheostomy. Still unable to wean. Some increased crackles today. 02/13: Still unable to wean from the vent. Overall prognosis remains extremely poor. 02/14; remains critically ill, tracheostomy on vent, unable to wean, poor prognosis, full CODE STATUS 02/15; patient is more alert and awake today, chronic tracheostomy on T-piece, continue current management DC planning per case management. Disposition very difficult due to lack of resources and insurance 02/17/2020. Patient remains on mechanical ventilation and tolerating PSV trials. Patient currently with PSV 10/6 at FiO2 of 30%. 02/18/2020. Patient currently on PSV 10/6 with FiO2 of 40%. 40% T-piece trial was attempted but patient unable to tolerate due to saturations dropping into the 80s and heart rate in the 140s. Therefore, patient placed back on PSV. Continue anticoagulation with Eliquis. Continue secretion control with Robinul and scopolamine. Continue rate control with metoprolol and digoxin. 02/19/2020. Patient currently on PSV 10/6 with FiO2 of 30%. T-piece trial attempted yesterday but patient did not tolerate. Continue T-piece trials as tolerated. Continue anticoagulation with Eliquis. Continue secretion control with Robinul and scopolamine. Continue rate control with metoprolol and digoxin. Continue to follow with case management with regards to discharge kyrie nning. 02/20/2020. Patient continues to tolerate PSV 10/6. Continue rate control with metoprolol and digoxin. Amiodarone discontinued due to elevated liver transaminases. Eliquis for anticoagulation acute PE/DVT. 02/21/2020. Patient continues to tolerate PSV 10/6 at FiO2 of 30%. Continue rate control with metoprolol and digoxin. Amiodarone discontinued due to elevated liver transaminases. Eliquis for anticoagulation acute PE/DVT. 02/22/2020. Patient continues to tolerate PSV 10/6 at FiO2 of 30%. Continue rate control with metoprolol and digoxin. Amiodarone discontinued due to kasia vated liver transaminases. Eliquis for anticoagulation acute PE/DVT. 02/22. Awake and alert on vent. Vitals stable. 02/23. Awake and alert on vent. Requests for ice. Vitals stable 02/24. Trach to vent. Continue rate control with metoprolol and digoxin. Amiodarone discontinued due to elevated liver transaminases. Eliquis for anticoagulation of acute PE/DVT. Transferred to [facility] 02/25. Seen in [facility]. Requests for ice. RN to provide a cube of ice. Vitals stable. 02/26. No change in medical condition. Slightly tachy this AM. Will monitor. 02/27. Cardiology started him on a beta hebert. Still on vent 02/28. Discharge planning as per vacation planner. Still on vent. Tachycardia noted. 03/01/2020; patient is tachycardic, still on the vent. Discharge management as per vacation planner. 03/02/2020; patient is on a vent and trach. Discharge is per vacation planner. The high probability of a clinically significant, sudden or life threatening deterioration of the [Respiratory, cardiovascular & neurological] system(s) required my full and direct attention, intervention and personal management. The aggregate critical care time was [32] minutes without overlap. Time includes spent on [x] Data Review and interpretation [x] Patient assessment and monitoring of vital signs [x] Documentation [x] Medication orders and management History Interval history: Patient was seen and evaluated this morning Patient trach and intubated Hospitalist Physical - Physical exam Narrative exam: Patient is on trach Patient is obese Vital signs as documented. Head exam is unremarkable. No scleral icterus . Neck is without jugular venous distension, thyromegaly, or carotid bruits. Lungs intubated and on mechanical ventilator Cardiac exam reveals regular rate and Rhythm. Abdominal exam reveals normal bowel sounds, nontender, no organomegaly. Extremities are nonedematous and both femoral and pedal pulses are normal. CHIEF PORT DIRECTOR: Patient was alert but is not able to talk because of the trach. - Constitutional Vitals: Temp Pulse Resp BP Pulse Ox 97.4 F L 134 H 27 H 116/68 88 03/03/20 04:00 03/03/20 07:00 03/03/20 07:00 03/03/20 07:00 03/03/20 07:00 General appearance: Present: no acute distress, well-nourished, obese, other (Tracheostomy responds to simple questions appropriately) HEART Score - HEART Score Troponin: Troponin T < 0.010 ng/mL (0.00-0.029) 01/19/20 01:35 Results - Labs CBC & Chem 7: 02/22/20 08:06 02/22/20 08:06 Labs: Laboratory Last Values WBC 9.2 K/mm3 (4.5-11.0) 02/22/20 08:06 RBC 4.42 M/mm3 (3.65-5.03) 02/22/20 08:06 Hgb 10.8 gm/dl (11.8-15.2) L 02/22/20 08:06 Hct 35.2 % (35.5-45.6) L 02/22/20 08:06 MCV 80 fl (84-94) L 02/22/20 08:06 MCH 25 pg (28-32) L 02/22/20 08:06 MCHC 31 % (32-34) L 02/22/20 08:06 RDW 21.8 % (13.2-15.2) H 02/22/20 08:06 Plt Count 216 K/mm3 (140-440) 02/22/20 08:06 Lymph % (Auto) 19.0 % (13.4-35.0) 02/22/20 08:06 Wood % (Auto) 6.5 % (0.0-7.3) 02/22/20 08:06 Eos % (Auto) 2.1 % (0.0-4.3) 02/22/20 08:06 Baso % (Auto) 0.9 % (0.0-1.8) 02/22/20 08:06 Lymph # (Auto) 1.8 K/mm3 (1.2-5.4) 02/22/20 08:06 Wood # (Auto) 0.6 K/mm3 (0.0-0.8) 02/22/20 08:06 Eos # (Auto) 0.2 K/mm3 (0.0-0.4) 02/22/20 08:06 Baso # (Auto) 0.1 K/mm3 (0.0-0.1) 02/22/20 08:06 Add Manual Diff Complete 02/15/20 06:59 Total Counted 100 02/15/20 06:59 Seg Neutrophils % 71.5 % (40.0-70.0) H 02/22/20 08:06 Seg Neuts % (Manual) 58.0 % (40.0-70.0) 02/15/20 06:59 Band Neutrophils % 0 % 02/15/20 06:59 Lymphocytes % (Manual) 34.0 % (13.4-35.0) 02/15/20 06:59 Reactive Lymphs % (Man) 1.0 % 02/15/20 06:59 Monocytes % (Manual) 4.0 % (0.0-7.3) 02/15/20 06:59 Eosinophils % (Manual) 0 % (0.0-4.3) 02/15/20 06:59 Basophils % (Manual) 2.0 % (0.0-1.8) H 02/15/20 06:59 Metamyelocytes % 1.0 % 02/15/20 06:59 Myelocytes % 0 % 02/15/20 06:59 Promyelocytes % 0 % 02/15/20 06:59 Blast Cells % 0 % 02/15/20 06:59 Nucleated RBC % 1.0 % (0.0-0.9) H 02/15/20 06:59 Seg Neutrophils # 6.6 K/mm3 (1.8-7.7) 02/22/20 08:06 Seg Neutrophils # Man 5.9 K/mm3 (1.8-7.7) 02/15/20 06:59 Band Neutrophils # 0.0 K/mm3 02/15/20 06:59 Lymphocytes # (Manual) 3.5 K/mm3 (1.2-5.4) 02/15/20 06:59 Abs React Lymphs (Man) 0.1 K/mm3 02/15/20 06:59 Monocytes # (Manual) 0.4 K/mm3 (0.0-0.8) 02/15/20 06:59 Eosinophils # (Manual) 0.0 K/mm3 (0.0-0.4) 02/15/20 06:59 Basophils # (Manual) 0.2 K/mm3 (0.0-0.1) H 02/15/20 06:59 Metamyelocytes # 0.1 K/mm3 02/15/20 06:59 Myelocytes # 0.0 K/mm3 02/15/20 06:59 Promyelocytes # 0.0 K/mm3 02/15/20 06:59 Blast Cells # 0.0 K/mm3 02/15/20 06:59 WBC Morphology Not Reportable 02/15/20 06:59 Hypersegmented Neuts Not Reportable 02/15/20 06:59 Hyposegmented Neuts Not Reportable 02/15/20 06:59 Hypogranular Neuts Not Reportable 02/15/20 06:59 Smudge Cells Not Reportable 02/15/20 06:59 Toxic Granulation Not Reportable 02/15/20 06:59 Toxic Vacuolation Not Reportable 02/15/20 06:59 Dohle Bodies Not Reportable 02/15/20 06:59 Pelger-Huet Anomaly Not Reportable 02/15/20 06:59 Hector Rods Not Reportable 02/15/20 06:59 Platelet Estimate Consistent w auto 02/15/20 06:59 Clumped Platelets Not Reportable 02/15/20 06:59 Plt Clumps, EDTA Not Reportable 02/15/20 06:59 Large Platelets Not Reportable 02/15/20 06:59 Giant Platelets Not Reportable 02/15/20 06:59 Platelet Satelliting Not Reportable 02/15/20 06:59 Plt Morphology Comment Giant platelets 02/15/20 06:59 RBC Morphology Not Reportable 02/15/20 06:59 Dimorphic RBCs Not Reportable 02/15/20 06:59 Polychromasia Not Reportable 02/15/20 06:59 Hypochromasia 1+ 02/15/20 06:59 Poikilocytosis Few 02/15/20 06:59 Anisocytosis 1+ 02/15/20 06:59 Microcytosis Not Reportable 02/15/20 06:59 Macrocytosis Not Reportable 02/15/20 06:59 Spherocytes Not Reportable 02/15/20 06:59 Pappenheimer Bodies Not Reportable 02/15/20 06:59 Sickle Cells Not Reportable 02/15/20 06:59 Target Cells 1+ 02/15/20 06:59 Tear Drop Cells Few 02/15/20 06:59 Ovalocytes Not Reportable 02/15/20 06:59 Helmet Cells Not Reportable 02/15/20 06:59 [place] Bodies Not Reportable 02/15/20 06:59 [place] Rings Not Reportable 02/15/20 06:59 Oc Cells Not Reportable 02/15/20 06:59 Bite Cells Not Reportable 02/15/20 06:59 Crenated Cell Not Reportable 02/15/20 06:59 Elliptocytes Few 02/15/20 06:59 Acanthocytes (Spur) Not Reportable 02/15/20 06:59 Rouleaux Not Reportable 02/15/20 06:59 Hemoglobin C Crystals Not Reportable 02/15/20 06:59 Schistocytes Not Reportable 02/15/20 06:59 Malaria parasites Not Reportable 02/15/20 06:59 Clifford Bodies Not Reportable 02/15/20 06:59 Hem Pathologist Commnt No 02/15/20 06:59 PT 27.0 Sec. (12.2-14.9) H 02/07/20 15:03 INR 2.46 (0.87-1.13) H 02/07/20 15:03 APTT 31.5 Sec. (24.2-36.6) 01/22/20 09:58 Heparin Anti-Xa Level 1.34 U.I./ml (0.3-0.7) H 01/22/20 04:45 ABG pH 7.461 pH Units (7.350-7.450) H 02/20/20 06:45 POC ABG pCO2 34.8 mmHg (32.0-48.0) 02/11/20 14:11 ABG pCO2 47.8 mm Hg 02/20/20 06:45 POC ABG pO2 77.7 mmHg (83-108) L 02/11/20 14:11 ABG pO2 88.7 mm Hg (80.0-90.0) 02/20/20 06:45 POC ABG HCO3 26.7 02/11/20 14:11 ABG HCO3 33.3 mmol/L (20.0-26.0) H 02/20/20 06:45 ABG O2 Saturation 97.2 % (95.0-99.0) 02/20/20 06:45 ABG O2 Content 13.3 (0.0-44) 02/20/20 06:45 POC ABG Base Excess 3.6 02/11/20 14:11 ABG Base Excess 8.4 mmol/L (-2.0-3.0) H 02/20/20 06:45 ABG Hemoglobin 10.0 gm/dl (14.0-18.0) L 02/20/20 06:45 ABG Oxyhemoglobin 84 (94-98) L 12/22/19 03:22 ABG Carboxyhemoglobin 2.9 % (0.0-5.0) 02/20/20 06:45 ABG Methemoglobin 0.4 % (0.0-1.5) 02/20/20 06:45 ABG Sodium 144.7 mmol/L (136.0-145.0) 02/11/20 14:11 ABG Potassium 3.5 mmol/L (3.40-4.50) 02/11/20 14:11 ABG Chloride 108.0 mmol/L (98-107) H 02/11/20 14:11 ABG Glucose 151 mg/dL (65-95) H 02/11/20 14:11 Oxyhemoglobin 94.1 % (95.0-99.0) L 02/20/20 06:45 Carboxyhemoglobin 0.7 (0.5-1.5) 12/22/19 03:22 FiO2 30 % 02/20/20 06:45 Sodium 146 mmol/L (137-145) H 02/22/20 08:06 Potassium 3.7 mmol/L (3.6-5.0) 02/22/20 08:06 Chloride 106.1 mmol/L (98-107) 02/22/20 08:06 Carbon Dioxide 34 mmol/L (22-30) H 02/22/20 08:06 Anion Gap 10 mmol/L 02/22/20 08:06 BUN 21 mg/dL (9-20) H 02/22/20 08:06 Creatinine 0.4 mg/dL (0.8-1.3) L 02/22/20 08:06 Estimated GFR > 60 ml/min 02/22/20 08:06 BUN/Creatinine Ratio 53 % 02/22/20 08:06 Glucose 149 mg/dL (75-100) H 02/22/20 08:06 POC Glucose 164 mg/dL (70-105) H 03/03/20 03:31 Lactic Acid 1.60 mmol/L (0.7-2.0) 02/03/20 12:49 Calcium 9.5 mg/dL (8.4-10.2) 02/22/20 08:06 Ferritin 84.4 ng/mL (30.0-300.0) 11/24/19 04:53 Phosphorus 4.10 mg/dL (2.5-4.5) 01/31/20 19:24 Magnesium 2.40 mg/dL (1.7-2.3) H 02/10/20 07:40 Total Bilirubin 1.30 mg/dL (0.1-1.2) H 02/08/20 19:00 Direct Bilirubin 0.9 mg/dL (0-0.2) H 02/08/20 19:00 Indirect Bilirubin 0.4 mg/dL 02/08/20 19:00 Total Creatine Kinase 141 units/L (55-170) 11/24/19 02:53 CK-MB (CK-2) 4.3 ng/mL (0.0-4.0) H 11/24/19 02:53 AST 309 units/L (5-40) H 02/08/20 19:00 ALT 650 units/L (7-56) H 02/08/20 19:00 CK-MB (CK-2) Rel Index 3.0 (0-4) 11/24/19 02:53 Alkaline Phosphatase 109 units/L (35-129) 02/08/20 19:00 C-Reactive Protein 8.50 mg/dL (0.00-1.30) H 12/01/19 12:16 Ammonia 35.0 umol/L (25-60) 02/03/20 12:49 Lactate Dehydrogenase 228 units/L (91-180) H 12/19/19 04:45 Troponin T < 0.010 ng/mL (0.00-0.029) 01/19/20 01:35 NT-Pro-B Natriuret Pep 3866 pg/mL (0-900) H 01/01/20 10:40 Total Protein 6.2 g/dL (6.3-8.2) L 02/08/20 19:00 Albumin 2.7 g/dL (3.9-5) L 02/08/20 19:00 Albumin/Globulin Ratio 0.8 % 02/08/20 19:00 Procalcitonin 0.44 ng/mL (<0.15) 02/03/20 12:49 Arterial Blood Glucose 151 mg/dL (65-95) H 02/11/20 14:11 Arterial Blood Ionized Calcium 4.7 mg/dL (4.6-5.3) 02/11/20 14:11 Urine Color Cecy (Yellow) 02/26/20 07:50 Urine Turbidity Clear (Clear) 02/26/20 07:50 Urine pH 5.0 (5.0-7.0) 02/26/20 07:50 Ur Specific [place] 1.025 (1.003-1.030) 02/26/20 07:50 Urine Protein 30 mg/dl mg/dL (Negative) 02/26/20 07:50 Urine Glucose (UA) Neg mg/dL (Negative) 02/26/20 07:50 Urine Ketones Neg mg/dL (Negative) 02/26/20 07:50 Urine Blood Sm (Negative) 02/26/20 07:50 Urine Nitrite Neg (Negative) 02/26/20 07:50 Urine Bilirubin Neg (Negative) 02/26/20 07:50 Urine Urobilinogen 4.0 mg/dL (<2.0) 02/26/20 07:50 Ur Leukocyte Esterase Lg (Negative) 02/26/20 07:50 Urine WBC (Auto) > 182.0 /HPF (0.0-6.0) H 02/26/20 07:50 Urine RBC (Auto) 84.0 /HPF (0.0-6.0) 02/26/20 07:50 U Epithel Cells (Auto) 2.0 /HPF (0-13.0) 12/31/19 18:04 Urine Bacteria (Auto) 4+ /HPF (Negative) 02/26/20 07:50 Urine WBC Clumps 2+ /HPF 02/26/20 07:50 Urine Mucus 1+ /HPF 02/26/20 07:50 Urine Creatinine 57.4 mg/dL (0.1-20.0) H 01/31/20 Unknown Urine Sodium 59 mmol/L 01/31/20 Unknown Vancomycin Trough 14.2 ug/mL (5.0-20.0) 12/13/19 15:01 Coronavirus (PCR) Negative (Negative) 12/29/19 10:07 Hepatitis A IgM Ab Non-reactive (NonReactive) 02/05/20 06:37 Hep Bs Antigen Non-reactive (Negative) 02/05/20 06:37 Hep B Core IgM Ab Non-reactive (NonReactive) 02/05/20 06:37 Hepatitis C Antibody Non-reactive (NonReactive) 02/05/20 06:37 Blood Type O POSITIVE 01/21/20 13:00 Antibody Screen Negative 01/21/20 13:00 - Diagnostic Impressions Diagnostic Impressions: Echocardiogram 11/29/19 07:37 Transthoracic Echocardiogram Indication: CHF BP: 116/72 HR: 33 Conclusions *The study is technically limited due to poor acoustic windows. *Global left ventricular systolic function is normal. *The estimated ejection fraction is 50-55%. *Mild concentric left ventricular hypertrophy is observed. *There is trace of mitral regurgitation. *There is mild tricuspid regurgitation. Findings Procedure Info: The study quality is poor. The study is technically limited due to poor acoustic windows. The study is technically limited due to patient body habitus. Left Ventricle: The left ventricular chamber size is normal. Mild concentric left ventricular hypertrophy is observed. Global left ventricular systolic function is normal. The estimated ejection fraction is 50-55%. Left Atrium: The left atrial chamber size is normal. Right Ventricle: The right ventricular cavity size is normal. Right Atrium: The right atrial cavity size is normal. Aortic Valve: The aortic valve leaflets are moderately thickened. There is trace of aortic regurgitation. There is no evidence of aortic stenosis. Mitral Valve: The mitral valve leaflets are mildly thickened. There is trace of mitral regurgitation. There is no evidence of mitral stenosis. Tricuspid Valve: There is mild tricuspid regurgitation. No pulmonary hypertension is noted. Pulmonic Valve: There is trace pulmonic regurgitation. Pericardium: There is no pericardial effusion. Aorta: There is no dilatation of the aortic root. Venous: The inferior vena cava appears normal in size. Contrast: Definity was used to optimize study. Intravenous contrast was used to enhance endocardial border definition. Measurements Chambers 2D Name Value Normal Range Ao root diameter (2D) 3.4 cm (2 - 3.7) Aortic Valve Name Value Normal Range AV Vmax 0.98 m/sec - AV VTI 16.76 cm - AV peak gradient 3.83 mmHg - AV mean gradient 2.57 mmHg - LVOT diameter 3.11 cm - LVOT Vmax 0.68 m/sec - LVOT VTI 11.52 cm - LVOT peak gradient 1.84 mmHg - LVOT mean gradient 1.27 mmHg - SV LVOT 87.31 ml - MALOU (continuity Vmax) 5.24 cm2 - MALOU (continuity VTI) 5.21 cm2 - Tricuspid Valve Name Value Normal Range IVC diameter 2.24 cm (1.2 - 2.3) Hoffman/IV: Voiding Method Indwelling Catheter IV Catheter Type [Left INT / Saline Lock Antecubital] IV Catheter Type [Right INT / Saline Lock Forearm] IV Catheter Type [Right Hand] Peripheral IV IV Catheter Type [Right Upper INT / Saline Lock arm] IV Catheter Type [Left Upper Mid-line arm] IV Catheter Type [Left Forearm Peripheral IV ] IV Catheter Type [Left Hand] Peripheral IV IV Catheter Type [Left Wrist] INT / Saline Lock IV Catheter Type [Right Peripheral IV Antecubital] Active Medications - Current Medications Current Medications: Generic Name Dose Route Start Last Admin Trade Name Freq PRN Reason Stop Dose Admin Lipase/Protease/Amylase 1 each 01/09/20 12:01 Nadir Betancourt 10,500 Unit FEEDTUBE PRN PRN For Clogged Feeding Tube Apixaban 5 mg 01/22/20 22:00 03/02/20 21:17 Eliquis PO 5 mg Q12HR CAR Administration Protocol Atorvastatin Calcium 40 mg 01/20/20 22:00 03/02/20 21:17 Lipitor PO 40 mg QHS CAR Administration Clopidogrel Bisulfate 75 mg 01/21/20 06:00 03/02/20 09:06 Plavix PO 75 mg QDAY CAR Administration Dextrose 50 ml 01/31/20 18:51 02/05/20 00:56 D50w (25gm) Syringe IV 50 ml Q30MIN PRN Administration Hypoglycemia Protocol Digoxin 0.125 mg 02/25/20 17:00 03/02/20 16:12 Lanoxin PO 0.125 mg DAILY@1700 CAR Administration Docusate Sodium 100 mg 02/22/20 10:00 03/02/20 21:17 Colace FEEDTUBE 100 mg BID CAR Administration Glycopyrrolate 2 mg 02/24/20 21:00 03/02/20 21:17 Glycopyrrolate PO 2 mg TID CAR Administration Haloperidol Lactate 5 mg 02/10/20 14:20 03/03/20 02:25 Haldol IV 5 mg Q6H PRN Administration Agitation Hydrophilic Ointment 1 applic 01/17/20 15:26 02/24/20 23:20 Vaseline Lip Therapy TP 1 applic DIRECT PRN Administration Dry Lips Insulin Human Regular 0 unit 02/01/20 18:00 03/03/20 07:34 Humulin R SUB-Q 1 unit Q6H CAR Administration Protocol Lansoprazole 30 mg 02/05/20 16:00 03/02/20 09:06 Prevacid Solutab FEEDTUBE 30 mg QDAY CAR Administration Metoprolol Tartrate 5 mg 01/11/20 08:00 03/03/20 01:46 Metoprolol IV 5 mg Q6H PRN Administration SEE INSTRUCTIONS Metoprolol Tartrate 12.5 mg 02/28/20 12:00 03/02/20 21:17 Metoprolol FEEDTUBE 12.5 mg BID CAR Administration Midodrine 15 mg 02/04/20 16:00 03/02/20 16:12 Proamatine PO 15 mg TID@0800,1200,1600 CAR Administration Morphine Sulfate 2 mg 01/06/20 15:41 03/03/20 01:45 Morphine IV 2 mg Q4H PRN Administration Pain, Moderate (4-6) Multi-Ingred Cream/Lotion/Oil/Oint 1 applic 02/01/20 15:52 Artificial Tears Ophth Oint OU Q4HR PRN Dry Eye(s) Nitroglycerin 0.4 mg 01/19/20 21:09 01/20/20 03:03 Nitrostat SL 0.4 mg .Q5MIN PRN Administration Chest Pain Ondansetron HCl 4 mg 01/05/20 14:37 02/29/20 12:39 Zofran IV 4 mg Q8H PRN Administration Nausea And Vomiting Polyethylene Glycol 17 gm 12/04/19 22:00 03/02/20 21:18 Miralax 3350 PO 17 gm QHS CAR Administration Quetiapine Fumarate 300 mg 01/13/20 22:00 03/02/20 21:21 Seroquel PO 300 mg BID CAR Administration Scopolamine 1 each 01/07/20 20:00 01/07/20 21:08 Transderm-Scop TD 1 each Q72HR CAR Administration Simple Syrup 15 ml 01/09/20 12:01 Simple Syrup FEEDTUBE PRN PRN Hypoglycemia Simple Syrup 30 ml 01/09/20 12:01 Simple Syrup FEEDTUBE PRN PRN Hypoglycemia Sodium Bicarbonate 325 mg 01/09/20 12:01 Sodium Bicarbonate FEEDTUBE PRN PRN For Clogged Feeding Tube Sodium Chloride 10 ml 11/24/19 10:00 03/02/20 21:19 Sodium Chloride Flush Syringe 10 Ml IV 10 ml BID CAR Administration Tamsulosin HCl 0.8 mg 12/20/19 22:00 03/02/20 21:17 Flomax PO 0.8 mg QHS CAR Administration Nutrition/Malnutrition Assess - Dietary Evaluation Nutrition/Malnutrition Findings: Nutrition Notes Start: 11/24/19 12:22 Freq: Status: Active Protocol: Document 03/02/20 12:13 AB (Rec: 03/02/20 12:19 AB [id number]) Co-Sign 03/02/20 12:13 LM Nutrition Notes Initial or Follow up Reassessment Current Diagnosis Coronary Artery Disease,Heart Failure,Respiratory Failure, Stroke,Hyperlipidemia Other Pertinent Diagnosis Partial SBO, pneu Current Diet Osmolite 1.5 at 65ml/hr Labs/Tests POC BG 176 Pertinent Medications Humulin Height 6 ft 2 in Weight 119 kg Delta Body Weight (kg) 86.36 BMI 33.7 Weight Status Obese Subjective/Other Information F/U for TF tolerance and Na lab. [employer] observed TF running at goal rate. Per nurse, pt has not had any nausea and is tolerating TF. Percent of energy/protein needs met: 95%/57% Burn Absent Trauma Absent GI Symptoms None Current % PO Negligible Minimum of two criteria Yes Muscle Mass Mild Depletion (non-severe) Fluid Accumulation Mild (non-severe) Reduced Social Work Nurse Strength Measurably Reduced (severe) #2 Nutrition Diagnosis Malnutrition Diagnosis Progress(for reassessment Continues documentation) #1 Nutrition Diagnosis Inadequate oral intake Diagnosis Progress(for reassessment Continues documentation) Is patient on ventilator? Yes Is Patient Ambulatory and/or Out of Bed No REE-([facility]-confined to bed) 2470.320 Calculation Used for Recommendations [facility] Additional Notes Protein needs are 173g ( greater than 2g/kg IBW) Fluid needs are 1 ml/kcal Nutrition Intervention Change Diet Order: Continue TF via PEG Nutrition Support: Osmolite 1.5 at 65 ml/hr. Flush 200 ml q4h. Kcal 2,340 Protein (gm) 98 Fluid (mL) 1,189 Goal #1 Meet at least 75% of pt's energy and protein needs Goal #2 Weight maintenance Anticipated Discharge Needs: unable to determine at this time Follow-Up By: 03/04/20 Additional Comments F/U for TF tolerance and new Na lab
[2020-03-03] MEDS: MIDODRINE 5 MG TAB PO SCH ×3 (09:05→17:23)
[2020-03-03] MEDS: GLYCOPYRROLATE 2 MG TAB PO SCH ×3 (09:05→21:33)
[2020-03-03] MEDS: METOPROLOL TARTRATE 25 MG TAB FEEDTUBE SCH ×2 (10:03→21:34)
[2020-03-03] MEDS: DOCUSATE SODIUM 100 MG/10 ML ORAL LIQD FEEDTUBE SCH ×2 (10:03→21:33)
[2020-03-03] MEDS: CLOPIDOGREL 75 MG TAB PO SCH (10:04)
[2020-03-03] MEDS: APIXABAN 5 MG TAB PO SCH ×2 (10:04→21:33)
[2020-03-03] MEDS: QUEtiapine 100 MG TAB PO SCH ×2 (10:04→21:37)
[2020-03-03] MEDS: LANSOPRAZOLE 30 MG SOLUTAB FEEDTUBE SCH (10:04)
[2020-03-03] MEDS: DIGOXIN 0.125 MG TAB PO SCH (17:23)
--- NOTE | 2020-03-03 17:23 | Progress Note ---
Assessment and Plan Acute hypoxemic respiratory failure Bilateral pneumonia, community acquired. Acute LLL branch P.E. Acute DVT Person under investigation for COVID-19 infection. Acute congestive heart failure exacerbation. History of cerebrovascular accident. Acute chronic obstructive pulmonary disease exacerbation. Hypertension and hypertensive urgency at presentation. History of arthritis. Leukocytosis. Lactic acidosis. Oropharyngeal dysphagia - continue daily SATs and SBT assessment as tolerated -Not tolerating weaning well -Intermittent diuresis while monitoring renal function and hemodynamics - continue prn haldol for agitation to avoid hypoventilation - continue Flomax - Midodrine for blood pressure - prn mucomyst nebs re: secretions - continue full anticoagulation with Apixaban - continue Seroquel for anxiolysis / delirium - continue to wean oxygen for O2 sats > 92% - continue bronchodilators with routine trach care and pulmonary hygiene per RT - continue Robinul & Scopolamine for secretion control - VAP bundle addressed (Aspiration precautions, HOB >40) - continue to wean per pulmonary driven protocols - continue prn analgesia per CPOT score - Avoid delirium (no benzodiazepines if they can be avoided) - Maintain sleep-wake cycle - enteral nutrition at goal rate as tolerated - continue accuchecks with glycemic control per SSI for target blood glucose goal of 140-180 mg/dL while critically ill; Avoid hypoglycemia - for VTE he is on IV Heparin - continue stress ulcer prophylaxis with Famotidine - continue mobility protocols for pressure ulcer prevention - continue fall precautions - continue wound care management per RN / WCT - Supportive transfusions to keep HgB>7g/dL - Continue to monitor neurologic function - Continue all supportive care ........ re-evaluate in am & prn CONDITION: CRITICAL PROGNOSIS: GUARDED CODE STATUS: FULL CODE The high probability of a clinically significant, sudden or life threatening deterioration of the [Respiratory, cardiovascular & neurological] system(s) required my full and direct attention, intervention and personal management. The aggregate critical care time was [32] minutes without overlap. Time includes spent on [x] Data Review and interpretation [x] Patient assessment and monitoring of vital signs [x] Documentation [x] Medication orders and management Subjective Date of service: 03/03/20 Principal diagnosis: Ac hypoxemic resp failure; Pneumonia; PUI COVID-19; CHF; COPD; HTN Interval history: Patient is seen today for: Acute hypoxemic respiratory failure; Adan. Pneumonia (CAP); PUI COVID-19 infection; AE-CHF; AE-COPD; H/O CVA; HTN; PE, DVT Seen and examined at bedside; 24 hour events reviewed; nursing and respiratory care staff consulted; no adverse overnight events reported to me; resting peacefully in bed; s/p trach on full support, awake and alert ,tolerating tube feedings. Vent on full support. Per RT when he was placed on PSV, he stated that he could not breathe, so was placed back on full support Size#6 Shiley, Mouths words to make needs known, is interactive Objective Vital Signs - 12hr 03/03/20 03/03/20 03/03/20 06:00 07:00 08:00 Temperature 96.6 F L Pulse Rate 97 H 134 H 101 H Pulse Rate [ 93 H From Monitor] Respiratory 16 27 H 20 Rate Respiratory 20 20 Rate [ Generalized] Blood Pressure 120/76 116/68 121/81 O2 Sat by Pulse 97 88 95 Oximetry O2 Sat by Pulse Oximetry [ Assessment] 03/03/20 03/03/20 03/03/20 09:00 09:20 09:42 Temperature Pulse Rate 117 H 107 H Pulse Rate [ From Monitor] Respiratory 25 H Rate Respiratory Rate [ Generalized] Blood Pressure 121/81 124/98 O2 Sat by Pulse 96 99 100 Oximetry O2 Sat by Pulse 99 Oximetry [ Assessment] 03/03/20 03/03/20 03/03/20 10:00 10:03 11:00 Temperature Pulse Rate 115 H 113 H 121 H Pulse Rate [ From Monitor] Respiratory 20 24 Rate Respiratory Rate [ Generalized] Blood Pressure 124/98 132/96 123/102 O2 Sat by Pulse 94 94 Oximetry O2 Sat by Pulse Oximetry [ Assessment] 03/03/20 03/03/20 03/03/20 12:00 13:00 14:00 Temperature 98.0 F Pulse Rate 130 H 126 H 132 H Pulse Rate [ 102 H From Monitor] Respiratory 24 18 16 Rate Respiratory 20 Rate [ Generalized] Blood Pressure 130/100 130/100 123/96 O2 Sat by Pulse 92 100 99 Oximetry O2 Sat by Pulse Oximetry [ Assessment] 03/03/20 03/03/20 03/03/20 14:01 15:00 16:00 Temperature 98.3 F Pulse Rate 124 H 123 H Pulse Rate [ From Monitor] Respiratory 26 H Rate Respiratory Rate [ Generalized] Blood Pressure 123/97 123/96 O2 Sat by Pulse 97 97 Oximetry O2 Sat by Pulse Oximetry [ Assessment] Constitutional: no acute distress, alert, other (Patient is resting on mechanical ventilation, awake and makes needs know by mouthing words and phonating around trach) Eyes: non-icteric ENT: oropharynx moist, other (+ midline tracheostomy) Neck: supple, no JVD Effort: mildly labored Ascultation: Bilateral: clear, diminished breath sounds, rhonchi (scant), other (mild tracheal secretions ) Percussion: Bilateral: not dull Cardiovascular: irregular rhythm Gastrointestinal: normoactive bowel sounds, soft, non-tender, non-distended, other (protuberant; PEG in place) Integumentary: normal Extremities: no cyanosis, pulses normal, no ischemia or petechiae, edema (bilateral lower extemities) Neurologic: non-focal exam (moves extremities), pupils equal and round, other (Patient sleeping.) Psychiatric: mood appropriate, anxious, other CBC and BMP: 02/22/20 08:06 02/22/20 08:06 ABG, PT/INR, D-dimer: ABG ABG pH 7.461 pH Units (7.350-7.450) H 02/20/20 06:45 POC ABG pCO2 34.8 mmHg (32.0-48.0) 02/11/20 14:11 ABG pCO2 47.8 mm Hg 02/20/20 06:45 POC ABG pO2 77.7 mmHg (83-108) L 02/11/20 14:11 ABG pO2 88.7 mm Hg (80.0-90.0) 02/20/20 06:45 POC ABG HCO3 26.7 02/11/20 14:11 ABG O2 Saturation 97.2 % (95.0-99.0) 02/20/20 06:45 PT/INR, D-dimer PT 27.0 Sec. (12.2-14.9) H 02/07/20 15:03 INR 2.46 (0.87-1.13) H 02/07/20 15:03 Abnormal lab findings: Abnormal Labs 11/24/19 11/24/19 11/24/19 02:53 02:53 03:45 WBC 14.3 H RBC Hgb Hct MCHC RDW 17.2 H MCV MCH Lymph % (Auto) [place] % (Auto) [place] # Eos # Lymph # (Auto) [place] # (Auto) Eos # (Auto) Seg Neutrophils % Seg Neuts % (Manual) Baso # (Auto) Lymphocytes % (Manual) Monocytes % (Manual) Eosinophils % (Manual) Basophils % (Manual) Seg Neutrophils # Seg Neutrophils # Man 8.3 H Lymphocytes # (Manual) Monocytes # (Manual) 0.9 H Eosinophils # (Manual) Nucleated RBC % Basophils # (Manual) PT INR APTT Heparin Anti-Xa Level ABG pH 7.313 L POC ABG pO2 ABG pO2 102.8 H ABG HCO3 ABG O2 Saturation ABG Base Excess -2.9 L POC ABG pCO2 ABG Hemoglobin ABG Oxyhemoglobin ABG Chloride ABG Glucose Oxyhemoglobin 93.9 L Sodium Potassium Chloride Carbon Dioxide BUN Creatinine Glucose 195 H POC Glucose Lactic Acid Calcium Phosphorus Magnesium AST ALT Lactate Dehydrogenase Total Bilirubin Direct Bilirubin CK-MB (CK-2) 4.3 H C-Reactive Protein NT-Pro-B Natriuret Pep 1181 H Total Protein Albumin Arterial Blood Glucose Urine WBC (Auto) Urine Creatinine 11/24/19 11/24/19 11/24/19 04:53 04:53 10:37 WBC RBC Hgb Hct MCHC RDW MCV MCH Lymph % (Auto) [place] % (Auto) [place] # Eos # Lymph # (Auto) [place] # (Auto) Eos # (Auto) Seg Neutrophils % Seg Neuts % (Manual) Baso # (Auto) Lymphocytes % (Manual) Monocytes % (Manual) Eosinophils % (Manual) Basophils % (Manual) Seg Neutrophils # Seg Neutrophils # Man Lymphocytes # (Manual) Monocytes # (Manual) Eosinophils # (Manual) Nucleated RBC % Basophils # (Manual) PT INR APTT Heparin Anti-Xa Level ABG pH POC ABG pO2 ABG pO2 ABG HCO3 ABG O2 Saturation ABG Base Excess POC ABG pCO2 ABG Hemoglobin ABG Oxyhemoglobin ABG Chloride ABG Glucose Oxyhemoglobin Sodium Potassium Chloride Carbon Dioxide BUN Creatinine Glucose 162 H POC Glucose Lactic Acid 2.40 H* 2.50 H* Calcium Phosphorus Magnesium AST ALT Lactate Dehydrogenase 240 H Total Bilirubin Direct Bilirubin CK-MB (CK-2) C-Reactive Protein NT-Pro-B Natriuret Pep Total Protein Albumin Arterial Blood Glucose Urine WBC (Auto) Urine Creatinine 0911/24/19 11/24/19 12:21 14:50 19:54 WBC RBC Hgb Hct MCHC RDW MCV MCH Lymph % (Auto) [place] % (Auto) [place] # Eos # Lymph # (Auto) [place] # (Auto) Eos # (Auto) Seg Neutrophils % Seg Neuts % (Manual) Baso # (Auto) Lymphocytes % (Manual) Monocytes % (Manual) Eosinophils % (Manual) Basophils % (Manual) Seg Neutrophils # Seg Neutrophils # Man Lymphocytes # (Manual) Monocytes # (Manual) Eosinophils # (Manual) Nucleated RBC % Basophils # (Manual) PT INR APTT Heparin Anti-Xa Level ABG pH POC ABG pO2 ABG pO2 ABG HCO3 ABG O2 Saturation ABG Base Excess POC ABG pCO2 ABG Hemoglobin ABG Oxyhemoglobin ABG Chloride ABG Glucose Oxyhemoglobin Sodium Potassium Chloride Carbon Dioxide BUN Creatinine Glucose POC Glucose 145 H 143 H 124 H Lactic Acid Calcium Phosphorus Magnesium AST ALT Lactate Dehydrogenase Total Bilirubin Direct Bilirubin CK-MB (CK-2) C-Reactive Protein NT-Pro-B Natriuret Pep Total Protein Albumin Arterial Blood Glucose Urine WBC (Auto) Urine Creatinine 11/25/19 11/25/19 11/25/19 00:18 03:18 05:11 WBC 13.7 H RBC Hgb Hct MCHC RDW 17.1 H MCV MCH Lymph % (Auto) 10.8 L [place] % (Auto) 8.7 H [place] # 1.2 H Eos # Lymph # (Auto) [place] # (Auto) Eos # (Auto) Seg Neutrophils % 80.2 H Seg Neuts % (Manual) Baso # (Auto) Lymphocytes % (Manual) Monocytes % (Manual) Eosinophils % (Manual) Basophils % (Manual) Seg Neutrophils # 11.0 H Seg Neutrophils # Man Lymphocytes # (Manual) Monocytes # (Manual) Eosinophils # (Manual) Nucleated RBC % Basophils # (Manual) PT INR APTT Heparin Anti-Xa Level ABG pH 7.333 L POC ABG pO2 ABG pO2 61.2 L ABG HCO3 ABG O2 Saturation 90.2 L ABG Base Excess POC ABG pCO2 ABG Hemoglobin 13.7 L ABG Oxyhemoglobin ABG Chloride ABG Glucose Oxyhemoglobin 88.2 L Sodium Potassium Chloride Carbon Dioxide BUN Creatinine Glucose POC Glucose 109 H Lactic Acid Calcium Phosphorus Magnesium AST ALT Lactate Dehydrogenase Total Bilirubin Direct Bilirubin CK-MB (CK-2) C-Reactive Protein NT-Pro-B Natriuret Pep Total Protein Albumin Arterial Blood Glucose Urine WBC (Auto) Urine Creatinine 11/25/19 11/25/19 11/26/19 05:11 11:40 03:12 WBC RBC Hgb Hct MCHC RDW MCV MCH Lymph % (Auto) [place] % (Auto) [place] # Eos # Lymph # (Auto) [place] # (Auto) Eos # (Auto) Seg Neutrophils % Seg Neuts % (Manual) Baso # (Auto) Lymphocytes % (Manual) Monocytes % (Manual) Eosinophils % (Manual) Basophils % (Manual) Seg Neutrophils # Seg Neutrophils # Man Lymphocytes # (Manual) Monocytes # (Manual) Eosinophils # (Manual) Nucleated RBC % Basophils # (Manual) PT INR APTT Heparin Anti-Xa Level ABG pH POC ABG pO2 ABG pO2 155.1 H ABG HCO3 27.8 H ABG O2 Saturation ABG Base Excess POC ABG pCO2 ABG Hemoglobin 12.2 L ABG Oxyhemoglobin ABG Chloride ABG Glucose Oxyhemoglobin Sodium Potassium Chloride Carbon Dioxide BUN 23 H Creatinine Glucose 110 H POC Glucose 108 H Lactic Acid Calcium Phosphorus Magnesium AST ALT Lactate Dehydrogenase Total Bilirubin Direct Bilirubin CK-MB (CK-2) C-Reactive Protein NT-Pro-B Natriuret Pep Total Protein Albumin Arterial Blood Glucose Urine WBC (Auto) Urine Creatinine 11/26/19 11/26/19 11/26/19 06:17 10:43 10:43 WBC 11.4 H RBC Hgb Hct MCHC RDW 17.1 H MCV MCH Lymph % (Auto) [place] % (Auto) [place] # Eos # Lymph # (Auto) [place] # (Auto) Eos # (Auto) Seg Neutrophils % Seg Neuts % (Manual) Baso # (Auto) Lymphocytes % (Manual) Monocytes % (Manual) Eosinophils % (Manual) Basophils % (Manual) Seg Neutrophils # Seg Neutrophils # Man Lymphocytes # (Manual) Monocytes # (Manual) Eosinophils # (Manual) Nucleated RBC % Basophils # (Manual) PT INR APTT Heparin Anti-Xa Level ABG pH POC ABG pO2 ABG pO2 ABG HCO3 ABG O2 Saturation ABG Base Excess POC ABG pCO2 ABG Hemoglobin ABG Oxyhemoglobin ABG Chloride ABG Glucose Oxyhemoglobin Sodium Potassium Chloride Carbon Dioxide BUN 29 H Creatinine Glucose POC Glucose 107 H Lactic Acid Calcium Phosphorus Magnesium AST ALT Lactate Dehydrogenase Total Bilirubin Direct Bilirubin CK-MB (CK-2) C-Reactive Protein NT-Pro-B Natriuret Pep Total Protein Albumin Arterial Blood Glucose Urine WBC (Auto) Urine Creatinine 11/26/19 11/27/19 11/27/19 17:11 01:53 04:11 WBC RBC Hgb Hct MCHC RDW MCV MCH Lymph % (Auto) [place] % (Auto) [place] # Eos # Lymph # (Auto) [place] # (Auto) Eos # (Auto) Seg Neutrophils % Seg Neuts % (Manual) Baso # (Auto) Lymphocytes % (Manual) Monocytes % (Manual) Eosinophils % (Manual) Basophils % (Manual) Seg Neutrophils # Seg Neutrophils # Man Lymphocytes # (Manual) Monocytes # (Manual) Eosinophils # (Manual) Nucleated RBC % Basophils # (Manual) PT INR APTT Heparin Anti-Xa Level ABG pH POC ABG pO2 ABG pO2 ABG HCO3 29.2 H ABG O2 Saturation ABG Base Excess 3.4 H POC ABG pCO2 ABG Hemoglobin 13.3 L ABG Oxyhemoglobin ABG Chloride ABG Glucose Oxyhemoglobin 94.5 L Sodium Potassium Chloride Carbon Dioxide BUN Creatinine Glucose POC Glucose 113 H 108 H Lactic Acid Calcium Phosphorus Magnesium AST ALT Lactate Dehydrogenase Total Bilirubin Direct Bilirubin CK-MB (CK-2) C-Reactive Protein NT-Pro-B Natriuret Pep Total Protein Albumin Arterial Blood Glucose Urine WBC (Auto) Urine Creatinine 11/27/19 11/28/19 11/28/19 05:27 05:00 05:25 WBC RBC Hgb Hct MCHC RDW MCV MCH Lymph % (Auto) [place] % (Auto) [place] # Eos # Lymph # (Auto) [place] # (Auto) Eos # (Auto) Seg Neutrophils % Seg Neuts % (Manual) Baso # (Auto) Lymphocytes % (Manual) Monocytes % (Manual) Eosinophils % (Manual) Basophils % (Manual) Seg Neutrophils # Seg Neutrophils # Man Lymphocytes # (Manual) Monocytes # (Manual) Eosinophils # (Manual) Nucleated RBC % Basophils # (Manual) PT INR APTT Heparin Anti-Xa Level ABG pH POC ABG pO2 68.1 L ABG pO2 ABG HCO3 ABG O2 Saturation ABG Base Excess POC ABG pCO2 ABG Hemoglobin ABG Oxyhemoglobin 91.2 L ABG Chloride ABG Glucose Oxyhemoglobin Sodium Potassium Chloride Carbon Dioxide BUN Creatinine Glucose POC Glucose 111 H 110 H Lactic Acid Calcium Phosphorus Magnesium AST ALT Lactate Dehydrogenase Total Bilirubin Direct Bilirubin CK-MB (CK-2) C-Reactive Protein NT-Pro-B Natriuret Pep Total Protein Albumin Arterial Blood Glucose Urine WBC (Auto) Urine Creatinine 11/28/19 11/28/19 11/28/19 12:08 13:47 13:47 WBC 11.3 H RBC Hgb Hct MCHC RDW 16.1 H MCV MCH Lymph % (Auto) [place] % (Auto) 9.9 H [place] # 1.1 H Eos # Lymph # (Auto) [place] # (Auto) Eos # (Auto) Seg Neutrophils % 71.4 H Seg Neuts % (Manual) Baso # (Auto) Lymphocytes % (Manual) Monocytes % (Manual) Eosinophils % (Manual) Basophils % (Manual) Seg Neutrophils # 8.1 H Seg Neutrophils # Man Lymphocytes # (Manual) Monocytes # (Manual) Eosinophils # (Manual) Nucleated RBC % Basophils # (Manual) PT INR APTT Heparin Anti-Xa Level ABG pH POC ABG pO2 ABG pO2 ABG HCO3 ABG O2 Saturation ABG Base Excess POC ABG pCO2 ABG Hemoglobin ABG Oxyhemoglobin ABG Chloride ABG Glucose Oxyhemoglobin Sodium Potassium Chloride Carbon Dioxide BUN 23 H Creatinine Glucose 123 H POC Glucose 112 H Lactic Acid Calcium Phosphorus Magnesium AST ALT Lactate Dehydrogenase Total Bilirubin Direct Bilirubin CK-MB (CK-2) C-Reactive Protein NT-Pro-B Natriuret Pep Total Protein Albumin 3.7 L Arterial Blood Glucose Urine WBC (Auto) Urine Creatinine 11/28/19 11/29/19 11/29/19 17:26 03:55 17:04 WBC RBC Hgb Hct MCHC RDW MCV MCH Lymph % (Auto) [place] % (Auto) [place] # Eos # Lymph # (Auto) [place] # (Auto) Eos # (Auto) Seg Neutrophils % Seg Neuts % (Manual) Baso # (Auto) Lymphocytes % (Manual) Monocytes % (Manual) Eosinophils % (Manual) Basophils % (Manual) Seg Neutrophils # Seg Neutrophils # Man Lymphocytes # (Manual) Monocytes # (Manual) Eosinophils # (Manual) Nucleated RBC % Basophils # (Manual) PT INR APTT Heparin Anti-Xa Level ABG pH POC ABG pO2 ABG pO2 65.7 L ABG HCO3 28.3 H ABG O2 Saturation 93.9 L ABG Base Excess 3.6 H POC ABG pCO2 ABG Hemoglobin 13.3 L ABG Oxyhemoglobin ABG Chloride ABG Glucose Oxyhemoglobin 91.5 L Sodium Potassium Chloride Carbon Dioxide BUN Creatinine Glucose POC Glucose 123 H 119 H Lactic Acid Calcium Phosphorus Magnesium AST ALT Lactate Dehydrogenase Total Bilirubin Direct Bilirubin CK-MB (CK-2) C-Reactive Protein NT-Pro-B Natriuret Pep Total Protein Albumin Arterial Blood Glucose Urine WBC (Auto) Urine Creatinine 11/30/19 11/30/19 11/30/19 04:17 04:17 04:56 WBC 13.4 H RBC Hgb Hct MCHC RDW 15.6 H MCV MCH Lymph % (Auto) [place] % (Auto) [place] # Eos # Lymph # (Auto) [place] # (Auto) Eos # (Auto) Seg Neutrophils % Seg Neuts % (Manual) Baso # (Auto) Lymphocytes % (Manual) Monocytes % (Manual) Eosinophils % (Manual) Basophils % (Manual) Seg Neutrophils # Seg Neutrophils # Man Lymphocytes # (Manual) Monocytes # (Manual) Eosinophils # (Manual) Nucleated RBC % Basophils # (Manual) PT INR APTT Heparin Anti-Xa Level ABG pH POC ABG pO2 ABG pO2 56.3 L ABG HCO3 29.3 H ABG O2 Saturation 91.5 L ABG Base Excess 4.7 H POC ABG pCO2 ABG Hemoglobin 12.1 L ABG Oxyhemoglobin ABG Chloride ABG Glucose Oxyhemoglobin 89.2 L Sodium 147 H Potassium Chloride Carbon Dioxide BUN 30 H Creatinine Glucose 124 H POC Glucose Lactic Acid Calcium Phosphorus Magnesium AST ALT Lactate Dehydrogenase Total Bilirubin Direct Bilirubin CK-MB (CK-2) C-Reactive Protein NT-Pro-B Natriuret Pep Total Protein Albumin 3.8 L Arterial Blood Glucose Urine WBC (Auto) Urine Creatinine 11/30/19 11/30/19 11/30/19 05:51 11:54 18:17 WBC RBC Hgb Hct MCHC RDW MCV MCH Lymph % (Auto) [place] % (Auto) [place] # Eos # Lymph # (Auto) [place] # (Auto) Eos # (Auto) Seg Neutrophils % Seg Neuts % (Manual) Baso # (Auto) Lymphocytes % (Manual) Monocytes % (Manual) Eosinophils % (Manual) Basophils % (Manual) Seg Neutrophils # Seg Neutrophils # Man Lymphocytes # (Manual) Monocytes # (Manual) Eosinophils # (Manual) Nucleated RBC % Basophils # (Manual) PT INR APTT Heparin Anti-Xa Level ABG pH POC ABG pO2 ABG pO2 ABG HCO3 ABG O2 Saturation ABG Base Excess POC ABG pCO2 ABG Hemoglobin ABG Oxyhemoglobin ABG Chloride ABG Glucose Oxyhemoglobin Sodium Potassium Chloride Carbon Dioxide BUN Creatinine Glucose POC Glucose 127 H 115 H 143 H Lactic Acid Calcium Phosphorus Magnesium AST ALT Lactate Dehydrogenase Total Bilirubin Direct Bilirubin CK-MB (CK-2) C-Reactive Protein NT-Pro-B Natriuret Pep Total Protein Albumin Arterial Blood Glucose Urine WBC (Auto) Urine Creatinine 12/01/19 12/01/19 12/01/19 01:18 05:22 12:16 WBC RBC Hgb Hct MCHC RDW MCV MCH Lymph % (Auto) [place] % (Auto) [place] # Eos # Lymph # (Auto) [place] # (Auto) Eos # (Auto) Seg Neutrophils % Seg Neuts % (Manual) Baso # (Auto) Lymphocytes % (Manual) Monocytes % (Manual) Eosinophils % (Manual) Basophils % (Manual) Seg Neutrophils # Seg Neutrophils # Man Lymphocytes # (Manual) Monocytes # (Manual) Eosinophils # (Manual) Nucleated RBC % Basophils # (Manual) PT INR APTT Heparin Anti-Xa Level ABG pH POC ABG pO2 ABG pO2 ABG HCO3 ABG O2 Saturation ABG Base Excess POC ABG pCO2 ABG Hemoglobin ABG Oxyhemoglobin ABG Chloride ABG Glucose Oxyhemoglobin Sodium Potassium 3.5 L Chloride 107.8 H Carbon Dioxide BUN 37 H Creatinine Glucose 157 H POC Glucose 118 H 148 H Lactic Acid Calcium 8.2 L D Phosphorus Magnesium AST 48 H ALT 60 H Lactate Dehydrogenase 194 H Total Bilirubin Direct Bilirubin CK-MB (CK-2) C-Reactive Protein 8.50 H NT-Pro-B Natriuret Pep Total Protein 5.5 L Albumin 2.8 L Arterial Blood Glucose Urine WBC (Auto) Urine Creatinine 12/01/19 12/02/19 12/02/19 18:04 00:05 05:16 WBC 11.4 H RBC Hgb Hct MCHC RDW 15.9 H MCV MCH Lymph % (Auto) [place] % (Auto) 9.9 H [place] # 1.1 H Eos # Lymph # (Auto) [place] # (Auto) Eos # (Auto) Seg Neutrophils % 70.3 H Seg Neuts % (Manual) Baso # (Auto) Lymphocytes % (Manual) Monocytes % (Manual) Eosinophils % (Manual) Basophils % (Manual) Seg Neutrophils # 8.0 H Seg Neutrophils # Man Lymphocytes # (Manual) Monocytes # (Manual) Eosinophils # (Manual) Nucleated RBC % Basophils # (Manual) PT INR APTT Heparin Anti-Xa Level ABG pH POC ABG pO2 ABG pO2 ABG HCO3 ABG O2 Saturation ABG Base Excess POC ABG pCO2 ABG Hemoglobin ABG Oxyhemoglobin ABG Chloride ABG Glucose Oxyhemoglobin Sodium Potassium Chloride Carbon Dioxide BUN Creatinine Glucose POC Glucose 143 H 107 H Lactic Acid Calcium Phosphorus Magnesium AST ALT Lactate Dehydrogenase Total Bilirubin Direct Bilirubin CK-MB (CK-2) C-Reactive Protein NT-Pro-B Natriuret Pep Total Protein Albumin Arterial Blood Glucose Urine WBC (Auto) Urine Creatinine 12/02/19 12/02/19 12/02/19 05:16 06:03 11:52 WBC RBC Hgb Hct MCHC RDW MCV MCH Lymph % (Auto) [place] % (Auto) [place] # Eos # Lymph # (Auto) [place] # (Auto) Eos # (Auto) Seg Neutrophils % Seg Neuts % (Manual) Baso # (Auto) Lymphocytes % (Manual) Monocytes % (Manual) Eosinophils % (Manual) Basophils % (Manual) Seg Neutrophils # Seg Neutrophils # Man Lymphocytes # (Manual) Monocytes # (Manual) Eosinophils # (Manual) Nucleated RBC % Basophils # (Manual) PT INR APTT Heparin Anti-Xa Level ABG pH POC ABG pO2 ABG pO2 ABG HCO3 ABG O2 Saturation ABG Base Excess POC ABG pCO2 ABG Hemoglobin ABG Oxyhemoglobin ABG Chloride ABG Glucose Oxyhemoglobin Sodium 146 H Potassium Chloride Carbon Dioxide BUN 28 H Creatinine Glucose 123 H POC Glucose 110 H 152 H Lactic Acid Calcium Phosphorus Magnesium AST ALT Lactate Dehydrogenase Total Bilirubin Direct Bilirubin CK-MB (CK-2) C-Reactive Protein NT-Pro-B Natriuret Pep Total Protein Albumin Arterial Blood Glucose Urine WBC (Auto) Urine Creatinine 12/02/19 12/02/19 12/02/19 12:58 17:58 23:36 WBC RBC Hgb Hct MCHC RDW MCV MCH Lymph % (Auto) [place] % (Auto) [place] # Eos # Lymph # (Auto) [place] # (Auto) Eos # (Auto) Seg Neutrophils % Seg Neuts % (Manual) Baso # (Auto) Lymphocytes % (Manual) Monocytes % (Manual) Eosinophils % (Manual) Basophils % (Manual) Seg Neutrophils # Seg Neutrophils # Man Lymphocytes # (Manual) Monocytes # (Manual) Eosinophils # (Manual) Nucleated RBC % Basophils # (Manual) PT INR APTT Heparin Anti-Xa Level ABG pH POC ABG pO2 78.1 L ABG pO2 ABG HCO3 ABG O2 Saturation ABG Base Excess POC ABG pCO2 ABG Hemoglobin ABG Oxyhemoglobin ABG Chloride ABG Glucose Oxyhemoglobin Sodium Potassium Chloride Carbon Dioxide BUN Creatinine Glucose POC Glucose 120 H 123 H Lactic Acid Calcium Phosphorus Magnesium AST ALT Lactate Dehydrogenase Total Bilirubin Direct Bilirubin CK-MB (CK-2) C-Reactive Protein NT-Pro-B Natriuret Pep Total Protein Albumin Arterial Blood Glucose Urine WBC (Auto) Urine Creatinine 12/03/19 12/03/19 12/03/19 06:03 06:14 11:46 WBC RBC Hgb Hct MCHC RDW MCV MCH Lymph % (Auto) [place] % (Auto) [place] # Eos # Lymph # (Auto) [place] # (Auto) Eos # (Auto) Seg Neutrophils % Seg Neuts % (Manual) Baso # (Auto) Lymphocytes % (Manual) Monocytes % (Manual) Eosinophils % (Manual) Basophils % (Manual) Seg Neutrophils # Seg Neutrophils # Man Lymphocytes # (Manual) Monocytes # (Manual) Eosinophils # (Manual) Nucleated RBC % Basophils # (Manual) PT INR APTT Heparin Anti-Xa Level ABG pH POC ABG pO2 ABG pO2 ABG HCO3 ABG O2 Saturation ABG Base Excess POC ABG pCO2 ABG Hemoglobin ABG Oxyhemoglobin ABG Chloride ABG Glucose Oxyhemoglobin Sodium Potassium Chloride Carbon Dioxide BUN Creatinine Glucose POC Glucose 142 H 130 H Lactic Acid Calcium Phosphorus Magnesium AST ALT Lactate Dehydrogenase Total Bilirubin Direct Bilirubin CK-MB (CK-2) C-Reactive Protein NT-Pro-B Natriuret Pep Total Protein Albumin Arterial Blood Glucose Urine WBC (Auto) 8.0 H Urine Creatinine 12/03/19 12/03/19 12/04/19 15:50 17:39 00:04 WBC RBC Hgb Hct MCHC RDW MCV MCH Lymph % (Auto) [place] % (Auto) [place] # Eos # Lymph # (Auto) [place] # (Auto) Eos # (Auto) Seg Neutrophils % Seg Neuts % (Manual) Baso # (Auto) Lymphocytes % (Manual) Monocytes % (Manual) Eosinophils % (Manual) Basophils % (Manual) Seg Neutrophils # Seg Neutrophils # Man Lymphocytes # (Manual) Monocytes # (Manual) Eosinophils # (Manual) Nucleated RBC % Basophils # (Manual) PT INR APTT Heparin Anti-Xa Level ABG pH POC ABG pO2 ABG pO2 ABG HCO3 ABG O2 Saturation ABG Base Excess POC ABG pCO2 ABG Hemoglobin ABG Oxyhemoglobin ABG Chloride ABG Glucose Oxyhemoglobin Sodium Potassium Chloride Carbon Dioxide BUN Creatinine Glucose POC Glucose 146 H 133 H Lactic Acid Calcium Phosphorus 2.40 L Magnesium AST ALT Lactate Dehydrogenase Total Bilirubin Direct Bilirubin CK-MB (CK-2) C-Reactive Protein NT-Pro-B Natriuret Pep Total Protein Albumin Arterial Blood Glucose Urine WBC (Auto) Urine Creatinine 12/04/19 12/04/19 12/04/19 03:58 03:58 05:22 WBC 12.5 H RBC Hgb 11.2 L Hct 35.2 L MCHC RDW 16.0 H MCV MCH Lymph % (Auto) [place] % (Auto) 9.6 H [place] # 1.2 H Eos # 0.5 H Lymph # (Auto) [place] # (Auto) Eos # (Auto) Seg Neutrophils % Seg Neuts % (Manual) Baso # (Auto) Lymphocytes % (Manual) Monocytes % (Manual) Eosinophils % (Manual) Basophils % (Manual) Seg Neutrophils # 8.6 H Seg Neutrophils # Man Lymphocytes # (Manual) Monocytes # (Manual) Eosinophils # (Manual) Nucleated RBC % Basophils # (Manual) PT INR APTT Heparin Anti-Xa Level ABG pH POC ABG pO2 ABG pO2 ABG HCO3 ABG O2 Saturation ABG Base Excess POC ABG pCO2 ABG Hemoglobin ABG Oxyhemoglobin ABG Chloride ABG Glucose Oxyhemoglobin Sodium 146 H Potassium Chloride 108.6 H Carbon Dioxide BUN 30 H Creatinine 0.7 L Glucose 121 H POC Glucose 132 H Lactic Acid Calcium Phosphorus Magnesium AST ALT Lactate Dehydrogenase Total Bilirubin Direct Bilirubin CK-MB (CK-2) C-Reactive Protein NT-Pro-B Natriuret Pep Total Protein Albumin Arterial Blood Glucose Urine WBC (Auto) Urine Creatinine 12/04/19 12/04/19 12/05/19 13:26 18:43 00:19 WBC RBC Hgb Hct MCHC RDW MCV MCH Lymph % (Auto) [place] % (Auto) [place] # Eos # Lymph # (Auto) [place] # (Auto) Eos # (Auto) Seg Neutrophils % Seg Neuts % (Manual) Baso # (Auto) Lymphocytes % (Manual) Monocytes % (Manual) Eosinophils % (Manual) Basophils % (Manual) Seg Neutrophils # Seg Neutrophils # Man Lymphocytes # (Manual) Monocytes # (Manual) Eosinophils # (Manual) Nucleated RBC % Basophils # (Manual) PT INR APTT Heparin Anti-Xa Level ABG pH POC ABG pO2 ABG pO2 ABG HCO3 ABG O2 Saturation ABG Base Excess POC ABG pCO2 ABG Hemoglobin ABG Oxyhemoglobin ABG Chloride ABG Glucose Oxyhemoglobin Sodium Potassium Chloride Carbon Dioxide BUN Creatinine Glucose POC Glucose 185 H 156 H 150 H Lactic Acid Calcium Phosphorus Magnesium AST ALT Lactate Dehydrogenase Total Bilirubin Direct Bilirubin CK-MB (CK-2) C-Reactive Protein NT-Pro-B Natriuret Pep Total Protein Albumin Arterial Blood Glucose Urine WBC (Auto) Urine Creatinine 12/05/19 12/05/19 12/05/19 03:37 03:37 05:14 WBC 16.3 H RBC Hgb 11.4 L Hct MCHC RDW 15.6 H MCV MCH Lymph % (Auto) 9.9 L [place] % (Auto) 9.7 H [place] # 1.6 H Eos # Lymph # (Auto) [place] # (Auto) Eos # (Auto) Seg Neutrophils % 78.0 H Seg Neuts % (Manual) Baso # (Auto) Lymphocytes % (Manual) Monocytes % (Manual) Eosinophils % (Manual) Basophils % (Manual) Seg Neutrophils # 12.7 H Seg Neutrophils # Man Lymphocytes # (Manual) Monocytes # (Manual) Eosinophils # (Manual) Nucleated RBC % Basophils # (Manual) PT INR APTT Heparin Anti-Xa Level ABG pH POC ABG pO2 ABG pO2 ABG HCO3 ABG O2 Saturation ABG Base Excess POC ABG pCO2 ABG Hemoglobin ABG Oxyhemoglobin ABG Chloride ABG Glucose Oxyhemoglobin Sodium 146 H Potassium Chloride 107.2 H Carbon Dioxide BUN 27 H Creatinine 0.7 L Glucose 171 H POC Glucose 168 H Lactic Acid Calcium Phosphorus Magnesium AST ALT Lactate Dehydrogenase Total Bilirubin Direct Bilirubin CK-MB (CK-2) C-Reactive Protein NT-Pro-B Natriuret Pep Total Protein Albumin Arterial Blood Glucose Urine WBC (Auto) Urine Creatinine 12/05/19 12/05/19 12/05/19 12:31 18:10 23:58 WBC RBC Hgb Hct MCHC RDW MCV MCH Lymph % (Auto) [place] % (Auto) [place] # Eos # Lymph # (Auto) [place] # (Auto) Eos # (Auto) Seg Neutrophils % Seg Neuts % (Manual) Baso # (Auto) Lymphocytes % (Manual) Monocytes % (Manual) Eosinophils % (Manual) Basophils % (Manual) Seg Neutrophils # Seg Neutrophils # Man Lymphocytes # (Manual) Monocytes # (Manual) Eosinophils # (Manual) Nucleated RBC % Basophils # (Manual) PT INR APTT Heparin Anti-Xa Level ABG pH POC ABG pO2 ABG pO2 ABG HCO3 ABG O2 Saturation ABG Base Excess POC ABG pCO2 ABG Hemoglobin ABG Oxyhemoglobin ABG Chloride ABG Glucose Oxyhemoglobin Sodium Potassium Chloride Carbon Dioxide BUN Creatinine Glucose POC Glucose 159 H 198 H 115 H Lactic Acid Calcium Phosphorus Magnesium AST ALT Lactate Dehydrogenase Total Bilirubin Direct Bilirubin CK-MB (CK-2) C-Reactive Protein NT-Pro-B Natriuret Pep Total Protein Albumin Arterial Blood Glucose Urine WBC (Auto) Urine Creatinine 12/06/19 12/06/19 12/06/19 05:24 05:24 05:25 WBC 14.9 H RBC Hgb 10.8 L Hct 34.0 L MCHC RDW 15.6 H MCV MCH Lymph % (Auto) 10.7 L [place] % (Auto) 8.3 H [place] # 1.2 H Eos # Lymph # (Auto) [place] # (Auto) Eos # (Auto) Seg Neutrophils % 78.7 H Seg Neuts % (Manual) Baso # (Auto) Lymphocytes % (Manual) Monocytes % (Manual) Eosinophils % (Manual) Basophils % (Manual) Seg Neutrophils # 11.7 H Seg Neutrophils # Man Lymphocytes # (Manual) Monocytes # (Manual) Eosinophils # (Manual) Nucleated RBC % Basophils # (Manual) PT INR APTT Heparin Anti-Xa Level ABG pH POC ABG pO2 ABG pO2 ABG HCO3 ABG O2 Saturation ABG Base Excess POC ABG pCO2 ABG Hemoglobin ABG Oxyhemoglobin ABG Chloride ABG Glucose Oxyhemoglobin Sodium 148 H Potassium 5.1 H Chloride 107.6 H Carbon Dioxide BUN 27 H Creatinine 0.7 L Glucose 155 H POC Glucose 157 H Lactic Acid Calcium Phosphorus Magnesium AST ALT Lactate Dehydrogenase Total Bilirubin Direct Bilirubin CK-MB (CK-2) C-Reactive Protein NT-Pro-B Natriuret Pep Total Protein Albumin Arterial Blood Glucose Urine WBC (Auto) Urine Creatinine 12/07/19 12/07/19 12/07/19 00:13 05:34 11:33 WBC RBC Hgb Hct MCHC RDW MCV MCH Lymph % (Auto) [place] % (Auto) [place] # Eos # Lymph # (Auto) [place] # (Auto) Eos # (Auto) Seg Neutrophils % Seg Neuts % (Manual) Baso # (Auto) Lymphocytes % (Manual) Monocytes % (Manual) Eosinophils % (Manual) Basophils % (Manual) Seg Neutrophils # Seg Neutrophils # Man Lymphocytes # (Manual) Monocytes # (Manual) Eosinophils # (Manual) Nucleated RBC % Basophils # (Manual) PT INR APTT Heparin Anti-Xa Level ABG pH POC ABG pO2 ABG pO2 ABG HCO3 ABG O2 Saturation ABG Base Excess POC ABG pCO2 ABG Hemoglobin ABG Oxyhemoglobin ABG Chloride ABG Glucose Oxyhemoglobin Sodium Potassium Chloride Carbon Dioxide BUN Creatinine Glucose POC Glucose 142 H 111 H 169 H Lactic Acid Calcium Phosphorus Magnesium AST ALT Lactate Dehydrogenase Total Bilirubin Direct Bilirubin CK-MB (CK-2) C-Reactive Protein NT-Pro-B Natriuret Pep Total Protein Albumin Arterial Blood Glucose Urine WBC (Auto) Urine Creatinine 12/07/19 12/07/19 12/07/19 12:41 13:25 18:19 WBC 12.4 H RBC 3.53 L Hgb 10.2 L Hct 32.1 L MCHC RDW 15.3 H MCV MCH Lymph % (Auto) 10.6 L [place] % (Auto) 7.8 H [place] # 1.0 H Eos # Lymph # (Auto) [place] # (Auto) Eos # (Auto) Seg Neutrophils % 77.6 H Seg Neuts % (Manual) Baso # (Auto) Lymphocytes % (Manual) Monocytes % (Manual) Eosinophils % (Manual) Basophils % (Manual) Seg Neutrophils # 9.6 H Seg Neutrophils # Man Lymphocytes # (Manual) Monocytes # (Manual) Eosinophils # (Manual) Nucleated RBC % Basophils # (Manual) PT INR APTT Heparin Anti-Xa Level ABG pH POC ABG pO2 ABG pO2 ABG HCO3 ABG O2 Saturation ABG Base Excess POC ABG pCO2 ABG Hemoglobin ABG Oxyhemoglobin ABG Chloride ABG Glucose Oxyhemoglobin Sodium 149 H Potassium Chloride 108.4 H Carbon Dioxide BUN 26 H Creatinine 0.6 L Glucose 149 H POC Glucose 164 H Lactic Acid Calcium Phosphorus Magnesium 2.60 H AST 121 H ALT 145 H Lactate Dehydrogenase Total Bilirubin Direct Bilirubin CK-MB (CK-2) C-Reactive Protein NT-Pro-B Natriuret Pep Total Protein Albumin 2.6 L Arterial Blood Glucose Urine WBC (Auto) Urine Creatinine 12/07/19 12/08/19 12/08/19 22:25 00:02 03:55 WBC 13.3 H RBC 3.40 L Hgb 9.7 L Hct 30.8 L MCHC 31 L RDW 15.5 H MCV MCH Lymph % (Auto) [place] % (Auto) 8.1 H [place] # 1.1 H Eos # Lymph # (Auto) [place] # (Auto) Eos # (Auto) Seg Neutrophils % 73.0 H Seg Neuts % (Manual) Baso # (Auto) Lymphocytes % (Manual) Monocytes % (Manual) Eosinophils % (Manual) Basophils % (Manual) Seg Neutrophils # 9.7 H Seg Neutrophils # Man Lymphocytes # (Manual) Monocytes # (Manual) Eosinophils # (Manual) Nucleated RBC % Basophils # (Manual) PT INR APTT Heparin Anti-Xa Level 0.12 L ABG pH POC ABG pO2 ABG pO2 ABG HCO3 ABG O2 Saturation ABG Base Excess POC ABG pCO2 ABG Hemoglobin ABG Oxyhemoglobin ABG Chloride ABG Glucose Oxyhemoglobin Sodium Potassium Chloride Carbon Dioxide BUN Creatinine Glucose POC Glucose 151 H Lactic Acid Calcium Phosphorus Magnesium AST ALT Lactate Dehydrogenase Total Bilirubin Direct Bilirubin CK-MB (CK-2) C-Reactive Protein NT-Pro-B Natriuret Pep Total Protein Albumin Arterial Blood Glucose Urine WBC (Auto) Urine Creatinine 12/08/19 12/08/19 12/08/19 03:55 05:21 06:01 WBC RBC Hgb Hct MCHC RDW MCV MCH Lymph % (Auto) [place] % (Auto) [place] # Eos # Lymph # (Auto) [place] # (Auto) Eos # (Auto) Seg Neutrophils % Seg Neuts % (Manual) Baso # (Auto) Lymphocytes % (Manual) Monocytes % (Manual) Eosinophils % (Manual) Basophils % (Manual) Seg Neutrophils # Seg Neutrophils # Man Lymphocytes # (Manual) Monocytes # (Manual) Eosinophils # (Manual) Nucleated RBC % Basophils # (Manual) PT INR APTT Heparin Anti-Xa Level 0.20 L ABG pH POC ABG pO2 ABG pO2 ABG HCO3 ABG O2 Saturation ABG Base Excess POC ABG pCO2 ABG Hemoglobin ABG Oxyhemoglobin ABG Chloride ABG Glucose Oxyhemoglobin Sodium 149 H Potassium Chloride 108.0 H Carbon Dioxide BUN 28 H Creatinine 0.6 L Glucose 144 H POC Glucose 143 H Lactic Acid Calcium Phosphorus Magnesium AST 98 H ALT 145 H Lactate Dehydrogenase Total Bilirubin Direct Bilirubin CK-MB (CK-2) C-Reactive Protein NT-Pro-B Natriuret Pep Total Protein 6.0 L Albumin 2.4 L Arterial Blood Glucose Urine WBC (Auto) Urine Creatinine 12/08/19 12/08/19 12/08/19 12:08 18:11 23:53 WBC RBC Hgb Hct MCHC RDW MCV MCH Lymph % (Auto) [place] % (Auto) [place] # Eos # Lymph # (Auto) [place] # (Auto) Eos # (Auto) Seg Neutrophils % Seg Neuts % (Manual) Baso # (Auto) Lymphocytes % (Manual) Monocytes % (Manual) Eosinophils % (Manual) Basophils % (Manual) Seg Neutrophils # Seg Neutrophils # Man Lymphocytes # (Manual) Monocytes # (Manual) Eosinophils # (Manual) Nucleated RBC % Basophils # (Manual) PT INR APTT Heparin Anti-Xa Level ABG pH POC ABG pO2 ABG pO2 ABG HCO3 ABG O2 Saturation ABG Base Excess POC ABG pCO2 ABG Hemoglobin ABG Oxyhemoglobin ABG Chloride ABG Glucose Oxyhemoglobin Sodium Potassium Chloride Carbon Dioxide BUN Creatinine Glucose POC Glucose 172 H 122 H 162 H Lactic Acid Calcium Phosphorus Magnesium AST ALT Lactate Dehydrogenase Total Bilirubin Direct Bilirubin CK-MB (CK-2) C-Reactive Protein NT-Pro-B Natriuret Pep Total Protein Albumin Arterial Blood Glucose Urine WBC (Auto) Urine Creatinine 12/09/19 12/09/19 12/09/19 04:03 04:03 05:53 WBC RBC Hgb 9.1 L Hct 28.9 L MCHC RDW MCV MCH Lymph % (Auto) [place] % (Auto) [place] # Eos # Lymph # (Auto) [place] # (Auto) Eos # (Auto) Seg Neutrophils % Seg Neuts % (Manual) Baso # (Auto) Lymphocytes % (Manual) Monocytes % (Manual) Eosinophils % (Manual) Basophils % (Manual) Seg Neutrophils # Seg Neutrophils # Man Lymphocytes # (Manual) Monocytes # (Manual) Eosinophils # (Manual) Nucleated RBC % Basophils # (Manual) PT INR APTT Heparin Anti-Xa Level 0.15 L ABG pH POC ABG pO2 ABG pO2 ABG HCO3 ABG O2 Saturation ABG Base Excess POC ABG pCO2 ABG Hemoglobin ABG Oxyhemoglobin ABG Chloride ABG Glucose Oxyhemoglobin Sodium Potassium Chloride Carbon Dioxide BUN Creatinine Glucose POC Glucose 124 H Lactic Acid Calcium Phosphorus Magnesium AST ALT Lactate Dehydrogenase Total Bilirubin Direct Bilirubin CK-MB (CK-2) C-Reactive Protein NT-Pro-B Natriuret Pep Total Protein Albumin Arterial Blood Glucose Urine WBC (Auto) Urine Creatinine 12/09/19 12/09/19 12/10/19 09:43 12:41 00:13 WBC RBC Hgb Hct MCHC RDW MCV MCH Lymph % (Auto) [place] % (Auto) [place] # Eos # Lymph # (Auto) [place] # (Auto) Eos # (Auto) Seg Neutrophils % Seg Neuts % (Manual) Baso # (Auto) Lymphocytes % (Manual) Monocytes % (Manual) Eosinophils % (Manual) Basophils % (Manual) Seg Neutrophils # Seg Neutrophils # Man Lymphocytes # (Manual) Monocytes # (Manual) Eosinophils # (Manual) Nucleated RBC % Basophils # (Manual) PT INR APTT Heparin Anti-Xa Level ABG pH POC ABG pO2 ABG pO2 ABG HCO3 ABG O2 Saturation ABG Base Excess POC ABG pCO2 ABG Hemoglobin ABG Oxyhemoglobin ABG Chloride ABG Glucose Oxyhemoglobin Sodium Potassium Chloride Carbon Dioxide BUN 25 H Creatinine 0.6 L Glucose 131 H POC Glucose 109 H 120 H Lactic Acid Calcium Phosphorus Magnesium AST ALT Lactate Dehydrogenase Total Bilirubin Direct Bilirubin CK-MB (CK-2) C-Reactive Protein NT-Pro-B Natriuret Pep Total Protein Albumin Arterial Blood Glucose Urine WBC (Auto) Urine Creatinine 12/10/19 12/10/19 12/10/19 04:14 04:14 12:00 WBC 13.3 H RBC 3.34 L Hgb 9.6 L Hct 30.4 L MCHC RDW 15.4 H MCV MCH Lymph % (Auto) [place] % (Auto) [place] # Eos # Lymph # (Auto) [place] # (Auto) Eos # (Auto) Seg Neutrophils % Seg Neuts % (Manual) 75.0 H Baso # (Auto) Lymphocytes % (Manual) 13.0 L Monocytes % (Manual) 8.0 H Eosinophils % (Manual) Basophils % (Manual) 2.0 H Seg Neutrophils # Seg Neutrophils # Man 10.0 H Lymphocytes # (Manual) Monocytes # (Manual) 1.1 H Eosinophils # (Manual) Nucleated RBC % Basophils # (Manual) 0.3 H PT INR APTT Heparin Anti-Xa Level ABG pH POC ABG pO2 ABG pO2 ABG HCO3 ABG O2 Saturation ABG Base Excess POC ABG pCO2 ABG Hemoglobin ABG Oxyhemoglobin ABG Chloride ABG Glucose Oxyhemoglobin Sodium 147 H Potassium Chloride 108.3 H Carbon Dioxide BUN 21 H Creatinine 0.6 L Glucose 104 H POC Glucose 133 H Lactic Acid Calcium Phosphorus Magnesium AST ALT Lactate Dehydrogenase Total Bilirubin Direct Bilirubin CK-MB (CK-2) C-Reactive Protein NT-Pro-B Natriuret Pep Total Protein Albumin Arterial Blood Glucose Urine WBC (Auto) Urine Creatinine 12/10/19 12/10/19 12/11/19 18:44 21:20 00:08 WBC 14.9 H RBC 3.36 L Hgb 9.6 L Hct 30.5 L MCHC RDW 15.4 H MCV MCH Lymph % (Auto) [place] % (Auto) [place] # Eos # Lymph # (Auto) [place] # (Auto) Eos # (Auto) Seg Neutrophils % Seg Neuts % (Manual) Baso # (Auto) Lymphocytes % (Manual) Monocytes % (Manual) Eosinophils % (Manual) Basophils % (Manual) Seg Neutrophils # Seg Neutrophils # Man Lymphocytes # (Manual) Monocytes # (Manual) Eosinophils # (Manual) Nucleated RBC % Basophils # (Manual) PT INR APTT Heparin Anti-Xa Level ABG pH POC ABG pO2 ABG pO2 ABG HCO3 ABG O2 Saturation ABG Base Excess POC ABG pCO2 ABG Hemoglobin ABG Oxyhemoglobin ABG Chloride ABG Glucose Oxyhemoglobin Sodium Potassium Chloride Carbon Dioxide BUN Creatinine Glucose POC Glucose 119 H 134 H Lactic Acid Calcium Phosphorus Magnesium AST ALT Lactate Dehydrogenase Total Bilirubin Direct Bilirubin CK-MB (CK-2) C-Reactive Protein NT-Pro-B Natriuret Pep Total Protein Albumin Arterial Blood Glucose Urine WBC (Auto) Urine Creatinine 12/11/19 12/11/19 12/11/19 03:54 07:28 08:36 WBC 11.9 H RBC 3.25 L Hgb 9.6 L Hct 29.2 L MCHC RDW 15.7 H MCV MCH Lymph % (Auto) [place] % (Auto) [place] # Eos # Lymph # (Auto) [place] # (Auto) Eos # (Auto) Seg Neutrophils % Seg Neuts % (Manual) Baso # (Auto) Lymphocytes % (Manual) Monocytes % (Manual) Eosinophils % (Manual) Basophils % (Manual) Seg Neutrophils # Seg Neutrophils # Man Lymphocytes # (Manual) Monocytes # (Manual) Eosinophils # (Manual) Nucleated RBC % Basophils # (Manual) PT INR APTT Heparin Anti-Xa Level 0.10 L 0.16 L ABG pH POC ABG pO2 ABG pO2 ABG HCO3 ABG O2 Saturation ABG Base Excess POC ABG pCO2 ABG Hemoglobin ABG Oxyhemoglobin ABG Chloride ABG Glucose Oxyhemoglobin Sodium Potassium Chloride Carbon Dioxide BUN Creatinine Glucose POC Glucose Lactic Acid Calcium Phosphorus Magnesium AST ALT Lactate Dehydrogenase Total Bilirubin Direct Bilirubin CK-MB (CK-2) C-Reactive Protein NT-Pro-B Natriuret Pep Total Protein Albumin Arterial Blood Glucose Urine WBC (Auto) Urine Creatinine 12/11/19 12/11/19 12/11/19 08:36 11:45 17:15 WBC RBC Hgb Hct MCHC RDW MCV MCH Lymph % (Auto) [place] % (Auto) [place] # Eos # Lymph # (Auto) [place] # (Auto) Eos # (Auto) Seg Neutrophils % Seg Neuts % (Manual) Baso # (Auto) Lymphocytes % (Manual) Monocytes % (Manual) Eosinophils % (Manual) Basophils % (Manual) Seg Neutrophils # Seg Neutrophils # Man Lymphocytes # (Manual) Monocytes # (Manual) Eosinophils # (Manual) Nucleated RBC % Basophils # (Manual) PT INR APTT Heparin Anti-Xa Level ABG pH POC ABG pO2 ABG pO2 ABG HCO3 ABG O2 Saturation ABG Base Excess POC ABG pCO2 ABG Hemoglobin ABG Oxyhemoglobin ABG Chloride ABG Glucose Oxyhemoglobin Sodium Potassium Chloride Carbon Dioxide BUN Creatinine 0.5 L Glucose 128 H POC Glucose 136 H 109 H Lactic Acid Calcium Phosphorus Magnesium AST ALT Lactate Dehydrogenase Total Bilirubin Direct Bilirubin CK-MB (CK-2) C-Reactive Protein NT-Pro-B Natriuret Pep Total Protein Albumin Arterial Blood Glucose Urine WBC (Auto) Urine Creatinine 12/12/19 12/12/19 12/12/19 00:03 05:53 05:53 WBC RBC Hgb 8.8 L Hct 27.6 L MCHC RDW MCV MCH Lymph % (Auto) [place] % (Auto) [place] # Eos # Lymph # (Auto) [place] # (Auto) Eos # (Auto) Seg Neutrophils % Seg Neuts % (Manual) Baso # (Auto) Lymphocytes % (Manual) Monocytes % (Manual) Eosinophils % (Manual) Basophils % (Manual) Seg Neutrophils # Seg Neutrophils # Man Lymphocytes # (Manual) Monocytes # (Manual) Eosinophils # (Manual) Nucleated RBC % Basophils # (Manual) PT INR APTT Heparin Anti-Xa Level 0.22 L ABG pH POC ABG pO2 ABG pO2 ABG HCO3 ABG O2 Saturation ABG Base Excess POC ABG pCO2 ABG Hemoglobin ABG Oxyhemoglobin ABG Chloride ABG Glucose Oxyhemoglobin Sodium Potassium Chloride Carbon Dioxide BUN Creatinine Glucose POC Glucose 116 H Lactic Acid Calcium Phosphorus Magnesium AST ALT Lactate Dehydrogenase Total Bilirubin Direct Bilirubin CK-MB (CK-2) C-Reactive Protein NT-Pro-B Natriuret Pep Total Protein Albumin Arterial Blood Glucose Urine WBC (Auto) Urine Creatinine 12/12/19 12/12/19 12/12/19 09:38 12:18 17:44 WBC RBC Hgb Hct MCHC RDW MCV MCH Lymph % (Auto) [place] % (Auto) [place] # Eos # Lymph # (Auto) [place] # (Auto) Eos # (Auto) Seg Neutrophils % Seg Neuts % (Manual) Baso # (Auto) Lymphocytes % (Manual) Monocytes % (Manual) Eosinophils % (Manual) Basophils % (Manual) Seg Neutrophils # Seg Neutrophils # Man Lymphocytes # (Manual) Monocytes # (Manual) Eosinophils # (Manual) Nucleated RBC % Basophils # (Manual) PT INR APTT Heparin Anti-Xa Level ABG pH POC ABG pO2 ABG pO2 ABG HCO3 ABG O2 Saturation ABG Base Excess POC ABG pCO2 ABG Hemoglobin ABG Oxyhemoglobin ABG Chloride ABG Glucose Oxyhemoglobin Sodium Potassium Chloride Carbon Dioxide BUN Creatinine Glucose POC Glucose 115 H 146 H 146 H Lactic Acid Calcium Phosphorus Magnesium AST ALT Lactate Dehydrogenase Total Bilirubin Direct Bilirubin CK-MB (CK-2) C-Reactive Protein NT-Pro-B Natriuret Pep Total Protein Albumin Arterial Blood Glucose Urine WBC (Auto) Urine Creatinine 12/12/19 12/13/19 12/13/19 23:33 05:32 05:32 WBC 13.1 H RBC 3.27 L Hgb 9.5 L Hct 29.3 L MCHC RDW 15.6 H MCV MCH Lymph % (Auto) [place] % (Auto) [place] # Eos # Lymph # (Auto) [place] # (Auto) Eos # (Auto) Seg Neutrophils % Seg Neuts % (Manual) 74.0 H Baso # (Auto) Lymphocytes % (Manual) 8.0 L Monocytes % (Manual) 9.0 H Eosinophils % (Manual) 5.0 H Basophils % (Manual) Seg Neutrophils # Seg Neutrophils # Man 9.7 H Lymphocytes # (Manual) 1.0 L Monocytes # (Manual) 1.2 H Eosinophils # (Manual) 0.7 H Nucleated RBC % Basophils # (Manual) PT INR APTT Heparin Anti-Xa Level 0.20 L ABG pH POC ABG pO2 ABG pO2 ABG HCO3 ABG O2 Saturation ABG Base Excess POC ABG pCO2 ABG Hemoglobin ABG Oxyhemoglobin ABG Chloride ABG Glucose Oxyhemoglobin Sodium Potassium Chloride Carbon Dioxide BUN Creatinine Glucose POC Glucose 126 H Lactic Acid Calcium Phosphorus Magnesium AST ALT Lactate Dehydrogenase Total Bilirubin Direct Bilirubin CK-MB (CK-2) C-Reactive Protein NT-Pro-B Natriuret Pep Total Protein Albumin Arterial Blood Glucose Urine WBC (Auto) Urine Creatinine 12/13/19 12/13/19 12/13/19 05:32 05:46 11:57 WBC RBC Hgb Hct MCHC RDW MCV MCH Lymph % (Auto) [place] % (Auto) [place] # Eos # Lymph # (Auto) [place] # (Auto) Eos # (Auto) Seg Neutrophils % Seg Neuts % (Manual) Baso # (Auto) Lymphocytes % (Manual) Monocytes % (Manual) Eosinophils % (Manual) Basophils % (Manual) Seg Neutrophils # Seg Neutrophils # Man Lymphocytes # (Manual) Monocytes # (Manual) Eosinophils # (Manual) Nucleated RBC % Basophils # (Manual) PT INR APTT Heparin Anti-Xa Level ABG pH POC ABG pO2 ABG pO2 ABG HCO3 ABG O2 Saturation ABG Base Excess POC ABG pCO2 ABG Hemoglobin ABG Oxyhemoglobin ABG Chloride ABG Glucose Oxyhemoglobin Sodium Potassium Chloride Carbon Dioxide 31 H BUN Creatinine 0.6 L Glucose 114 H POC Glucose 118 H 133 H Lactic Acid Calcium Phosphorus Magnesium AST ALT Lactate Dehydrogenase Total Bilirubin Direct Bilirubin CK-MB (CK-2) C-Reactive Protein NT-Pro-B Natriuret Pep Total Protein Albumin Arterial Blood Glucose Urine WBC (Auto) Urine Creatinine 12/13/19 12/13/19 12/14/19 17:44 23:46 05:32 WBC RBC Hgb Hct MCHC RDW MCV MCH Lymph % (Auto) [place] % (Auto) [place] # Eos # Lymph # (Auto) [place] # (Auto) Eos # (Auto) Seg Neutrophils % Seg Neuts % (Manual) Baso # (Auto) Lymphocytes % (Manual) Monocytes % (Manual) Eosinophils % (Manual) Basophils % (Manual) Seg Neutrophils # Seg Neutrophils # Man Lymphocytes # (Manual) Monocytes # (Manual) Eosinophils # (Manual) Nucleated RBC % Basophils # (Manual) PT INR APTT Heparin Anti-Xa Level ABG pH POC ABG pO2 ABG pO2 ABG HCO3 ABG O2 Saturation ABG Base Excess POC ABG pCO2 ABG Hemoglobin ABG Oxyhemoglobin ABG Chloride ABG Glucose Oxyhemoglobin Sodium Potassium Chloride Carbon Dioxide BUN Creatinine Glucose POC Glucose 161 H 126 H 139 H Lactic Acid Calcium Phosphorus Magnesium AST ALT Lactate Dehydrogenase Total Bilirubin Direct Bilirubin CK-MB (CK-2) C-Reactive Protein NT-Pro-B Natriuret Pep Total Protein Albumin Arterial Blood Glucose Urine WBC (Auto) Urine Creatinine 12/14/19 12/14/19 12/14/19 06:03 06:03 09:37 WBC RBC Hgb 9.6 L Hct 30.4 L MCHC RDW MCV MCH Lymph % (Auto) [place] % (Auto) [place] # Eos # Lymph # (Auto) [place] # (Auto) Eos # (Auto) Seg Neutrophils % Seg Neuts % (Manual) Baso # (Auto) Lymphocytes % (Manual) Monocytes % (Manual) Eosinophils % (Manual) Basophils % (Manual) Seg Neutrophils # Seg Neutrophils # Man Lymphocytes # (Manual) Monocytes # (Manual) Eosinophils # (Manual) Nucleated RBC % Basophils # (Manual) PT INR APTT Heparin Anti-Xa Level 0.24 L ABG pH POC ABG pO2 ABG pO2 ABG HCO3 ABG O2 Saturation ABG Base Excess POC ABG pCO2 ABG Hemoglobin ABG Oxyhemoglobin ABG Chloride ABG Glucose Oxyhemoglobin Sodium Potassium Chloride Carbon Dioxide BUN Creatinine 0.6 L Glucose 162 H POC Glucose Lactic Acid Calcium Phosphorus Magnesium AST 71 H ALT 118 H Lactate Dehydrogenase Total Bilirubin Direct Bilirubin CK-MB (CK-2) C-Reactive Protein NT-Pro-B Natriuret Pep Total Protein 6.2 L Albumin 2.3 L Arterial Blood Glucose Urine WBC (Auto) Urine Creatinine 12/14/19 12/14/19 12/15/19 12:06 18:18 00:19 WBC RBC Hgb Hct MCHC RDW MCV MCH Lymph % (Auto) [place] % (Auto) [place] # Eos # Lymph # (Auto) [place] # (Auto) Eos # (Auto) Seg Neutrophils % Seg Neuts % (Manual) Baso # (Auto) Lymphocytes % (Manual) Monocytes % (Manual) Eosinophils % (Manual) Basophils % (Manual) Seg Neutrophils # Seg Neutrophils # Man Lymphocytes # (Manual) Monocytes # (Manual) Eosinophils # (Manual) Nucleated RBC % Basophils # (Manual) PT INR APTT Heparin Anti-Xa Level ABG pH POC ABG pO2 ABG pO2 ABG HCO3 ABG O2 Saturation ABG Base Excess POC ABG pCO2 ABG Hemoglobin ABG Oxyhemoglobin ABG Chloride ABG Glucose Oxyhemoglobin Sodium Potassium Chloride Carbon Dioxide BUN Creatinine Glucose POC Glucose 147 H 166 H 123 H Lactic Acid Calcium Phosphorus Magnesium AST ALT Lactate Dehydrogenase Total Bilirubin Direct Bilirubin CK-MB (CK-2) C-Reactive Protein NT-Pro-B Natriuret Pep Total Protein Albumin Arterial Blood Glucose Urine WBC (Auto) Urine Creatinine 12/15/19 12/15/19 12/15/19 05:28 05:29 05:29 WBC 14.9 H RBC 3.19 L Hgb 9.1 L Hct 28.7 L MCHC RDW 16.0 H MCV MCH Lymph % (Auto) [place] % (Auto) [place] # Eos # Lymph # (Auto) [place] # (Auto) Eos # (Auto) Seg Neutrophils % Seg Neuts % (Manual) Baso # (Auto) Lymphocytes % (Manual) Monocytes % (Manual) Eosinophils % (Manual) Basophils % (Manual) Seg Neutrophils # Seg Neutrophils # Man Lymphocytes # (Manual) Monocytes # (Manual) Eosinophils # (Manual) Nucleated RBC % Basophils # (Manual) PT INR APTT Heparin Anti-Xa Level 0.19 L ABG pH POC ABG pO2 ABG pO2 ABG HCO3 ABG O2 Saturation ABG Base Excess POC ABG pCO2 ABG Hemoglobin ABG Oxyhemoglobin ABG Chloride ABG Glucose Oxyhemoglobin Sodium Potassium Chloride Carbon Dioxide BUN Creatinine 0.6 L Glucose 110 H POC Glucose Lactic Acid Calcium Phosphorus Magnesium AST ALT Lactate Dehydrogenase Total Bilirubin Direct Bilirubin CK-MB (CK-2) C-Reactive Protein NT-Pro-B Natriuret Pep Total Protein Albumin Arterial Blood Glucose Urine WBC (Auto) Urine Creatinine 12/15/19 12/15/19 12/15/19 05:53 11:50 17:26 WBC RBC Hgb Hct MCHC RDW MCV MCH Lymph % (Auto) [place] % (Auto) [place] # Eos # Lymph # (Auto) [place] # (Auto) Eos # (Auto) Seg Neutrophils % Seg Neuts % (Manual) Baso # (Auto) Lymphocytes % (Manual) Monocytes % (Manual) Eosinophils % (Manual) Basophils % (Manual) Seg Neutrophils # Seg Neutrophils # Man Lymphocytes # (Manual) Monocytes # (Manual) Eosinophils # (Manual) Nucleated RBC % Basophils # (Manual) PT INR APTT Heparin Anti-Xa Level ABG pH POC ABG pO2 ABG pO2 ABG HCO3 ABG O2 Saturation ABG Base Excess POC ABG pCO2 ABG Hemoglobin ABG Oxyhemoglobin ABG Chloride ABG Glucose Oxyhemoglobin Sodium Potassium Chloride Carbon Dioxide BUN Creatinine Glucose POC Glucose 119 H 132 H 128 H Lactic Acid Calcium Phosphorus Magnesium AST ALT Lactate Dehydrogenase Total Bilirubin Direct Bilirubin CK-MB (CK-2) C-Reactive Protein NT-Pro-B Natriuret Pep Total Protein Albumin Arterial Blood Glucose Urine WBC (Auto) Urine Creatinine 12/15/19 12/16/19 12/16/19 23:11 05:30 05:46 WBC RBC Hgb 8.8 L Hct 27.9 L MCHC RDW MCV MCH Lymph % (Auto) [place] % (Auto) [place] # Eos # Lymph # (Auto) [place] # (Auto) Eos # (Auto) Seg Neutrophils % Seg Neuts % (Manual) Baso # (Auto) Lymphocytes % (Manual) Monocytes % (Manual) Eosinophils % (Manual) Basophils % (Manual) Seg Neutrophils # Seg Neutrophils # Man Lymphocytes # (Manual) Monocytes # (Manual) Eosinophils # (Manual) Nucleated RBC % Basophils # (Manual) PT INR APTT Heparin Anti-Xa Level ABG pH POC ABG pO2 ABG pO2 ABG HCO3 ABG O2 Saturation ABG Base Excess POC ABG pCO2 ABG Hemoglobin ABG Oxyhemoglobin ABG Chloride ABG Glucose Oxyhemoglobin Sodium Potassium Chloride Carbon Dioxide BUN Creatinine Glucose POC Glucose 150 H 134 H Lactic Acid Calcium Phosphorus Magnesium AST ALT Lactate Dehydrogenase Total Bilirubin Direct Bilirubin CK-MB (CK-2) C-Reactive Protein NT-Pro-B Natriuret Pep Total Protein Albumin Arterial Blood Glucose Urine WBC (Auto) Urine Creatinine 12/16/19 12/16/19 12/16/19 05:46 05:46 11:44 WBC RBC Hgb Hct MCHC RDW MCV MCH Lymph % (Auto) [place] % (Auto) [place] # Eos # Lymph # (Auto) [place] # (Auto) Eos # (Auto) Seg Neutrophils % Seg Neuts % (Manual) Baso # (Auto) Lymphocytes % (Manual) Monocytes % (Manual) Eosinophils % (Manual) Basophils % (Manual) Seg Neutrophils # Seg Neutrophils # Man Lymphocytes # (Manual) Monocytes # (Manual) Eosinophils # (Manual) Nucleated RBC % Basophils # (Manual) PT INR APTT Heparin Anti-Xa Level 0.20 L ABG pH POC ABG pO2 ABG pO2 ABG HCO3 ABG O2 Saturation ABG Base Excess POC ABG pCO2 ABG Hemoglobin ABG Oxyhemoglobin ABG Chloride ABG Glucose Oxyhemoglobin Sodium Potassium Chloride Carbon Dioxide 31 H BUN Creatinine 0.5 L Glucose 147 H POC Glucose 164 H Lactic Acid Calcium Phosphorus Magnesium AST ALT Lactate Dehydrogenase Total Bilirubin Direct Bilirubin CK-MB (CK-2) C-Reactive Protein NT-Pro-B Natriuret Pep Total Protein Albumin Arterial Blood Glucose Urine WBC (Auto) Urine Creatinine 12/16/19 12/16/19 12/17/19 17:17 23:49 05:30 WBC 13.9 H RBC 3.27 L Hgb 9.4 L Hct 29.2 L MCHC RDW 16.0 H MCV MCH Lymph % (Auto) [place] % (Auto) 8.8 H [place] # Eos # Lymph # (Auto) [place] # (Auto) 1.2 H Eos # (Auto) 0.5 H Seg Neutrophils % 70.5 H Seg Neuts % (Manual) Baso # (Auto) 0.2 H Lymphocytes % (Manual) Monocytes % (Manual) Eosinophils % (Manual) Basophils % (Manual) Seg Neutrophils # 9.8 H Seg Neutrophils # Man Lymphocytes # (Manual) Monocytes # (Manual) Eosinophils # (Manual) Nucleated RBC % Basophils # (Manual) PT INR APTT Heparin Anti-Xa Level ABG pH POC ABG pO2 ABG pO2 ABG HCO3 ABG O2 Saturation ABG Base Excess POC ABG pCO2 ABG Hemoglobin ABG Oxyhemoglobin ABG Chloride ABG Glucose Oxyhemoglobin Sodium Potassium Chloride Carbon Dioxide BUN Creatinine Glucose POC Glucose 162 H 144 H Lactic Acid Calcium Phosphorus Magnesium AST ALT Lactate Dehydrogenase Total Bilirubin Direct Bilirubin CK-MB (CK-2) C-Reactive Protein NT-Pro-B Natriuret Pep Total Protein Albumin Arterial Blood Glucose Urine WBC (Auto) Urine Creatinine 12/17/19 12/17/19 12/17/19 05:30 06:06 11:50 WBC RBC Hgb Hct MCHC RDW MCV MCH Lymph % (Auto) [place] % (Auto) [place] # Eos # Lymph # (Auto) [place] # (Auto) Eos # (Auto) Seg Neutrophils % Seg Neuts % (Manual) Baso # (Auto) Lymphocytes % (Manual) Monocytes % (Manual) Eosinophils % (Manual) Basophils % (Manual) Seg Neutrophils # Seg Neutrophils # Man Lymphocytes # (Manual) Monocytes # (Manual) Eosinophils # (Manual) Nucleated RBC % Basophils # (Manual) PT INR APTT Heparin Anti-Xa Level ABG pH POC ABG pO2 ABG pO2 ABG HCO3 ABG O2 Saturation ABG Base Excess POC ABG pCO2 ABG Hemoglobin ABG Oxyhemoglobin ABG Chloride ABG Glucose Oxyhemoglobin Sodium Potassium Chloride 97.4 L Carbon Dioxide 32 H BUN Creatinine 0.5 L Glucose 135 H POC Glucose 151 H 140 H Lactic Acid Calcium Phosphorus Magnesium AST ALT Lactate Dehydrogenase Total Bilirubin Direct Bilirubin CK-MB (CK-2) C-Reactive Protein NT-Pro-B Natriuret Pep Total Protein Albumin Arterial Blood Glucose Urine WBC (Auto) Urine Creatinine 12/17/19 12/17/19 12/18/19 17:50 23:46 05:17 WBC RBC Hgb 8.8 L Hct 28.0 L MCHC RDW MCV MCH Lymph % (Auto) [place] % (Auto) [place] # Eos # Lymph # (Auto) [place] # (Auto) Eos # (Auto) Seg Neutrophils % Seg Neuts % (Manual) Baso # (Auto) Lymphocytes % (Manual) Monocytes % (Manual) Eosinophils % (Manual) Basophils % (Manual) Seg Neutrophils # Seg Neutrophils # Man Lymphocytes # (Manual) Monocytes # (Manual) Eosinophils # (Manual) Nucleated RBC % Basophils # (Manual) PT INR APTT Heparin Anti-Xa Level ABG pH POC ABG pO2 ABG pO2 ABG HCO3 ABG O2 Saturation ABG Base Excess POC ABG pCO2 ABG Hemoglobin ABG Oxyhemoglobin ABG Chloride ABG Glucose Oxyhemoglobin Sodium Potassium Chloride Carbon Dioxide BUN Creatinine Glucose POC Glucose 158 H 150 H Lactic Acid Calcium Phosphorus Magnesium AST ALT Lactate Dehydrogenase Total Bilirubin Direct Bilirubin CK-MB (CK-2) C-Reactive Protein NT-Pro-B Natriuret Pep Total Protein Albumin Arterial Blood Glucose Urine WBC (Auto) Urine Creatinine 12/18/19 12/18/19 12/18/19 05:17 05:49 11:12 WBC RBC Hgb Hct MCHC RDW MCV MCH Lymph % (Auto) [place] % (Auto) [place] # Eos # Lymph # (Auto) [place] # (Auto) Eos # (Auto) Seg Neutrophils % Seg Neuts % (Manual) Baso # (Auto) Lymphocytes % (Manual) Monocytes % (Manual) Eosinophils % (Manual) Basophils % (Manual) Seg Neutrophils # Seg Neutrophils # Man Lymphocytes # (Manual) Monocytes # (Manual) Eosinophils # (Manual) Nucleated RBC % Basophils # (Manual) PT INR APTT Heparin Anti-Xa Level 0.16 L ABG pH POC ABG pO2 ABG pO2 ABG HCO3 ABG O2 Saturation ABG Base Excess POC ABG pCO2 ABG Hemoglobin ABG Oxyhemoglobin ABG Chloride ABG Glucose Oxyhemoglobin Sodium Potassium Chloride Carbon Dioxide BUN Creatinine Glucose POC Glucose 127 H 191 H Lactic Acid Calcium Phosphorus Magnesium AST ALT Lactate Dehydrogenase Total Bilirubin Direct Bilirubin CK-MB (CK-2) C-Reactive Protein NT-Pro-B Natriuret Pep Total Protein Albumin Arterial Blood Glucose Urine WBC (Auto) Urine Creatinine 12/18/19 12/18/19 12/19/19 17:03 20:16 00:08 WBC RBC Hgb Hct MCHC RDW MCV MCH Lymph % (Auto) [place] % (Auto) [place] # Eos # Lymph # (Auto) [place] # (Auto) Eos # (Auto) Seg Neutrophils % Seg Neuts % (Manual) Baso # (Auto) Lymphocytes % (Manual) Monocytes % (Manual) Eosinophils % (Manual) Basophils % (Manual) Seg Neutrophils # Seg Neutrophils # Man Lymphocytes # (Manual) Monocytes # (Manual) Eosinophils # (Manual) Nucleated RBC % Basophils # (Manual) PT INR APTT Heparin Anti-Xa Level ABG pH POC ABG pO2 ABG pO2 ABG HCO3 ABG O2 Saturation ABG Base Excess POC ABG pCO2 ABG Hemoglobin ABG Oxyhemoglobin ABG Chloride ABG Glucose Oxyhemoglobin Sodium Potassium Chloride Carbon Dioxide BUN Creatinine Glucose POC Glucose 133 H 128 H 129 H Lactic Acid Calcium Phosphorus Magnesium AST ALT Lactate Dehydrogenase Total Bilirubin Direct Bilirubin CK-MB (CK-2) C-Reactive Protein NT-Pro-B Natriuret Pep Total Protein Albumin Arterial Blood Glucose Urine WBC (Auto) Urine Creatinine 12/19/19 12/19/19 12/19/19 04:45 04:45 05:35 WBC RBC Hgb Hct MCHC RDW MCV MCH Lymph % (Auto) [place] % (Auto) [place] # Eos # Lymph # (Auto) [place] # (Auto) Eos # (Auto) Seg Neutrophils % Seg Neuts % (Manual) Baso # (Auto) Lymphocytes % (Manual) Monocytes % (Manual) Eosinophils % (Manual) Basophils % (Manual) Seg Neutrophils # Seg Neutrophils # Man Lymphocytes # (Manual) Monocytes # (Manual) Eosinophils # (Manual) Nucleated RBC % Basophils # (Manual) PT INR APTT Heparin Anti-Xa Level 0.17 L ABG pH POC ABG pO2 ABG pO2 ABG HCO3 ABG O2 Saturation ABG Base Excess POC ABG pCO2 ABG Hemoglobin ABG Oxyhemoglobin ABG Chloride ABG Glucose Oxyhemoglobin Sodium Potassium Chloride Carbon Dioxide BUN Creatinine Glucose POC Glucose 120 H Lactic Acid Calcium Phosphorus Magnesium AST ALT Lactate Dehydrogenase 228 H Total Bilirubin Direct Bilirubin CK-MB (CK-2) C-Reactive Protein NT-Pro-B Natriuret Pep Total Protein Albumin Arterial Blood Glucose Urine WBC (Auto) Urine Creatinine 12/19/19 12/19/19 12/19/19 09:20 11:32 11:32 WBC 14.6 H RBC 3.08 L Hgb 9.0 L Hct 26.8 L MCHC RDW 15.9 H MCV MCH Lymph % (Auto) [place] % (Auto) [place] # Eos # Lymph # (Auto) [place] # (Auto) Eos # (Auto) Seg Neutrophils % Seg Neuts % (Manual) 82.0 H Baso # (Auto) Lymphocytes % (Manual) 10.0 L Monocytes % (Manual) Eosinophils % (Manual) Basophils % (Manual) Seg Neutrophils # Seg Neutrophils # Man 12.0 H Lymphocytes # (Manual) Monocytes # (Manual) 0.9 H Eosinophils # (Manual) Nucleated RBC % 1.0 H Basophils # (Manual) PT INR APTT Heparin Anti-Xa Level ABG pH 7.451 H POC ABG pO2 ABG pO2 62.6 L ABG HCO3 33.2 H ABG O2 Saturation 93.8 L ABG Base Excess 8.3 H POC ABG pCO2 ABG Hemoglobin 8.3 L ABG Oxyhemoglobin ABG Chloride ABG Glucose Oxyhemoglobin 91.9 L Sodium Potassium Chloride 95.0 L Carbon Dioxide 33 H BUN 22 H Creatinine 0.6 L Glucose 150 H POC Glucose Lactic Acid Calcium Phosphorus Magnesium AST ALT Lactate Dehydrogenase Total Bilirubin Direct Bilirubin CK-MB (CK-2) C-Reactive Protein NT-Pro-B Natriuret Pep Total Protein 6.2 L Albumin 2.4 L Arterial Blood Glucose Urine WBC (Auto) Urine Creatinine 12/19/19 12/19/19 12/20/19 11:56 18:17 00:09 WBC RBC Hgb Hct MCHC RDW MCV MCH Lymph % (Auto) [place] % (Auto) [place] # Eos # Lymph # (Auto) [place] # (Auto) Eos # (Auto) Seg Neutrophils % Seg Neuts % (Manual) Baso # (Auto) Lymphocytes % (Manual) Monocytes % (Manual) Eosinophils % (Manual) Basophils % (Manual) Seg Neutrophils # Seg Neutrophils # Man Lymphocytes # (Manual) Monocytes # (Manual) Eosinophils # (Manual) Nucleated RBC % Basophils # (Manual) PT INR APTT Heparin Anti-Xa Level ABG pH POC ABG pO2 ABG pO2 ABG HCO3 ABG O2 Saturation ABG Base Excess POC ABG pCO2 ABG Hemoglobin ABG Oxyhemoglobin ABG Chloride ABG Glucose Oxyhemoglobin Sodium Potassium Chloride Carbon Dioxide BUN Creatinine Glucose POC Glucose 156 H 156 H 155 H Lactic Acid Calcium Phosphorus Magnesium AST ALT Lactate Dehydrogenase Total Bilirubin Direct Bilirubin CK-MB (CK-2) C-Reactive Protein NT-Pro-B Natriuret Pep Total Protein Albumin Arterial Blood Glucose Urine WBC (Auto) Urine Creatinine 12/20/19 12/20/19 12/20/19 05:26 06:02 18:17 WBC RBC Hgb Hct MCHC RDW MCV MCH Lymph % (Auto) [place] % (Auto) [place] # Eos # Lymph # (Auto) [place] # (Auto) Eos # (Auto) Seg Neutrophils % Seg Neuts % (Manual) Baso # (Auto) Lymphocytes % (Manual) Monocytes % (Manual) Eosinophils % (Manual) Basophils % (Manual) Seg Neutrophils # Seg Neutrophils # Man Lymphocytes # (Manual) Monocytes # (Manual) Eosinophils # (Manual) Nucleated RBC % Basophils # (Manual) PT INR APTT Heparin Anti-Xa Level 0.19 L ABG pH POC ABG pO2 ABG pO2 ABG HCO3 ABG O2 Saturation ABG Base Excess POC ABG pCO2 ABG Hemoglobin ABG Oxyhemoglobin ABG Chloride ABG Glucose Oxyhemoglobin Sodium Potassium Chloride Carbon Dioxide BUN Creatinine Glucose POC Glucose 137 H 128 H Lactic Acid Calcium Phosphorus Magnesium AST ALT Lactate Dehydrogenase Total Bilirubin Direct Bilirubin CK-MB (CK-2) C-Reactive Protein NT-Pro-B Natriuret Pep Total Protein Albumin Arterial Blood Glucose Urine WBC (Auto) Urine Creatinine 12/20/19 12/21/19 12/21/19 23:34 05:31 05:31 WBC 12.7 H RBC 3.09 L Hgb 8.9 L Hct 27.4 L MCHC RDW 15.8 H MCV MCH Lymph % (Auto) 12.1 L [place] % (Auto) 7.8 H [place] # Eos # Lymph # (Auto) [place] # (Auto) 1.0 H Eos # (Auto) Seg Neutrophils % 77.1 H Seg Neuts % (Manual) Baso # (Auto) Lymphocytes % (Manual) Monocytes % (Manual) Eosinophils % (Manual) Basophils % (Manual) Seg Neutrophils # 9.8 H Seg Neutrophils # Man Lymphocytes # (Manual) Monocytes # (Manual) Eosinophils # (Manual) Nucleated RBC % Basophils # (Manual) PT INR APTT Heparin Anti-Xa Level ABG pH POC ABG pO2 ABG pO2 ABG HCO3 ABG O2 Saturation ABG Base Excess POC ABG pCO2 ABG Hemoglobin ABG Oxyhemoglobin ABG Chloride ABG Glucose Oxyhemoglobin Sodium Potassium Chloride 96.9 L Carbon Dioxide 37 H BUN 27 H Creatinine 0.7 L Glucose 140 H POC Glucose 145 H Lactic Acid Calcium Phosphorus Magnesium AST ALT Lactate Dehydrogenase Total Bilirubin Direct Bilirubin CK-MB (CK-2) C-Reactive Protein NT-Pro-B Natriuret Pep Total Protein Albumin Arterial Blood Glucose Urine WBC (Auto) Urine Creatinine 12/21/19 12/21/19 12/21/19 05:38 10:13 11:51 WBC RBC Hgb Hct MCHC RDW MCV MCH Lymph % (Auto) [place] % (Auto) [place] # Eos # Lymph # (Auto) [place] # (Auto) Eos # (Auto) Seg Neutrophils % Seg Neuts % (Manual) Baso # (Auto) Lymphocytes % (Manual) Monocytes % (Manual) Eosinophils % (Manual) Basophils % (Manual) Seg Neutrophils # Seg Neutrophils # Man Lymphocytes # (Manual) Monocytes # (Manual) Eosinophils # (Manual) Nucleated RBC % Basophils # (Manual) PT INR APTT 23.9 L Heparin Anti-Xa Level < 0.10 L ABG pH POC ABG pO2 ABG pO2 ABG HCO3 ABG O2 Saturation ABG Base Excess POC ABG pCO2 ABG Hemoglobin ABG Oxyhemoglobin ABG Chloride ABG Glucose Oxyhemoglobin Sodium Potassium Chloride Carbon Dioxide BUN Creatinine Glucose POC Glucose 151 H 145 H Lactic Acid Calcium Phosphorus Magnesium AST ALT Lactate Dehydrogenase Total Bilirubin Direct Bilirubin CK-MB (CK-2) C-Reactive Protein NT-Pro-B Natriuret Pep Total Protein Albumin Arterial Blood Glucose Urine WBC (Auto) Urine Creatinine 12/21/19 12/22/19 12/22/19 17:16 00:01 01:33 WBC RBC Hgb Hct MCHC RDW MCV MCH Lymph % (Auto) [place] % (Auto) [place] # Eos # Lymph # (Auto) [place] # (Auto) Eos # (Auto) Seg Neutrophils % Seg Neuts % (Manual) Baso # (Auto) Lymphocytes % (Manual) Monocytes % (Manual) Eosinophils % (Manual) Basophils % (Manual) Seg Neutrophils # Seg Neutrophils # Man Lymphocytes # (Manual) Monocytes # (Manual) Eosinophils # (Manual) Nucleated RBC % Basophils # (Manual) PT INR APTT Heparin Anti-Xa Level 0.10 L ABG pH POC ABG pO2 ABG pO2 ABG HCO3 ABG O2 Saturation ABG Base Excess POC ABG pCO2 ABG Hemoglobin ABG Oxyhemoglobin ABG Chloride ABG Glucose Oxyhemoglobin Sodium Potassium Chloride Carbon Dioxide BUN Creatinine Glucose POC Glucose 167 H 179 H Lactic Acid Calcium Phosphorus Magnesium AST ALT Lactate Dehydrogenase Total Bilirubin Direct Bilirubin CK-MB (CK-2) C-Reactive Protein NT-Pro-B Natriuret Pep Total Protein Albumin Arterial Blood Glucose Urine WBC (Auto) Urine Creatinine 12/22/19 12/22/19 12/22/19 03:22 05:10 05:10 WBC 13.8 H RBC 3.20 L Hgb 8.9 L Hct 28.1 L MCHC RDW 15.9 H MCV MCH Lymph % (Auto) [place] % (Auto) [place] # Eos # Lymph # (Auto) [place] # (Auto) Eos # (Auto) Seg Neutrophils % Seg Neuts % (Manual) Baso # (Auto) Lymphocytes % (Manual) Monocytes % (Manual) Eosinophils % (Manual) Basophils % (Manual) Seg Neutrophils # Seg Neutrophils # Man Lymphocytes # (Manual) Monocytes # (Manual) Eosinophils # (Manual) Nucleated RBC % Basophils # (Manual) PT INR APTT Heparin Anti-Xa Level ABG pH POC ABG pO2 52.3 L ABG pO2 ABG HCO3 ABG O2 Saturation ABG Base Excess POC ABG pCO2 52.9 H ABG Hemoglobin 10.7 L ABG Oxyhemoglobin 84 L ABG Chloride ABG Glucose Oxyhemoglobin Sodium Potassium Chloride 96.6 L Carbon Dioxide BUN 25 H Creatinine 0.7 L Glucose 129 H POC Glucose Lactic Acid Calcium Phosphorus Magnesium AST ALT Lactate Dehydrogenase Total Bilirubin Direct Bilirubin CK-MB (CK-2) C-Reactive Protein NT-Pro-B Natriuret Pep Total Protein Albumin Arterial Blood Glucose Urine WBC (Auto) Urine Creatinine 12/22/19 12/22/19 12/22/19 05:18 12:32 12:43 WBC RBC Hgb Hct MCHC RDW MCV MCH Lymph % (Auto) [place] % (Auto) [place] # Eos # Lymph # (Auto) [place] # (Auto) Eos # (Auto) Seg Neutrophils % Seg Neuts % (Manual) Baso # (Auto) Lymphocytes % (Manual) Monocytes % (Manual) Eosinophils % (Manual) Basophils % (Manual) Seg Neutrophils # Seg Neutrophils # Man Lymphocytes # (Manual) Monocytes # (Manual) Eosinophils # (Manual) Nucleated RBC % Basophils # (Manual) PT INR APTT Heparin Anti-Xa Level 0.18 L ABG pH POC ABG pO2 ABG pO2 ABG HCO3 ABG O2 Saturation ABG Base Excess POC ABG pCO2 ABG Hemoglobin ABG Oxyhemoglobin ABG Chloride ABG Glucose Oxyhemoglobin Sodium Potassium Chloride Carbon Dioxide BUN Creatinine Glucose POC Glucose 131 H 208 H Lactic Acid Calcium Phosphorus Magnesium AST ALT Lactate Dehydrogenase Total Bilirubin Direct Bilirubin CK-MB (CK-2) C-Reactive Protein NT-Pro-B Natriuret Pep Total Protein Albumin Arterial Blood Glucose Urine WBC (Auto) Urine Creatinine 12/22/19 12/22/19 12/23/19 17:44 23:20 03:51 WBC 15.2 H RBC 3.43 L Hgb 9.6 L Hct 30.3 L MCHC RDW 15.9 H MCV MCH Lymph % (Auto) [place] % (Auto) [place] # Eos # Lymph # (Auto) [place] # (Auto) Eos # (Auto) Seg Neutrophils % Seg Neuts % (Manual) Baso # (Auto) Lymphocytes % (Manual) Monocytes % (Manual) Eosinophils % (Manual) Basophils % (Manual) Seg Neutrophils # Seg Neutrophils # Man Lymphocytes # (Manual) Monocytes # (Manual) Eosinophils # (Manual) Nucleated RBC % Basophils # (Manual) PT INR APTT Heparin Anti-Xa Level ABG pH POC ABG pO2 ABG pO2 ABG HCO3 ABG O2 Saturation ABG Base Excess POC ABG pCO2 ABG Hemoglobin ABG Oxyhemoglobin ABG Chloride ABG Glucose Oxyhemoglobin Sodium Potassium Chloride Carbon Dioxide BUN Creatinine Glucose POC Glucose 209 H 119 H Lactic Acid Calcium Phosphorus Magnesium AST ALT Lactate Dehydrogenase Total Bilirubin Direct Bilirubin CK-MB (CK-2) C-Reactive Protein NT-Pro-B Natriuret Pep Total Protein Albumin Arterial Blood Glucose Urine WBC (Auto) Urine Creatinine 12/23/19 12/23/19 12/23/19 03:51 05:31 12:09 WBC RBC Hgb Hct MCHC RDW MCV MCH Lymph % (Auto) [place] % (Auto) [place] # Eos # Lymph # (Auto) [place] # (Auto) Eos # (Auto) Seg Neutrophils % Seg Neuts % (Manual) Baso # (Auto) Lymphocytes % (Manual) Monocytes % (Manual) Eosinophils % (Manual) Basophils % (Manual) Seg Neutrophils # Seg Neutrophils # Man Lymphocytes # (Manual) Monocytes # (Manual) Eosinophils # (Manual) Nucleated RBC % Basophils # (Manual) PT INR APTT Heparin Anti-Xa Level ABG pH POC ABG pO2 ABG pO2 ABG HCO3 ABG O2 Saturation ABG Base Excess POC ABG pCO2 ABG Hemoglobin ABG Oxyhemoglobin ABG Chloride ABG Glucose Oxyhemoglobin Sodium Potassium Chloride 97.2 L Carbon Dioxide 31 H BUN 23 H Creatinine 0.6 L Glucose 153 H POC Glucose 149 H 144 H Lactic Acid Calcium Phosphorus Magnesium AST ALT Lactate Dehydrogenase Total Bilirubin Direct Bilirubin CK-MB (CK-2) C-Reactive Protein NT-Pro-B Natriuret Pep Total Protein Albumin Arterial Blood Glucose Urine WBC (Auto) Urine Creatinine 12/23/19 12/23/19 12/23/19 15:30 17:49 23:31 WBC RBC Hgb Hct MCHC RDW MCV MCH Lymph % (Auto) [place] % (Auto) [place] # Eos # Lymph # (Auto) [place] # (Auto) Eos # (Auto) Seg Neutrophils % Seg Neuts % (Manual) Baso # (Auto) Lymphocytes % (Manual) Monocytes % (Manual) Eosinophils % (Manual) Basophils % (Manual) Seg Neutrophils # Seg Neutrophils # Man Lymphocytes # (Manual) Monocytes # (Manual) Eosinophils # (Manual) Nucleated RBC % Basophils # (Manual) PT INR APTT Heparin Anti-Xa Level 0.21 L ABG pH POC ABG pO2 ABG pO2 ABG HCO3 ABG O2 Saturation ABG Base Excess POC ABG pCO2 ABG Hemoglobin ABG Oxyhemoglobin ABG Chloride ABG Glucose Oxyhemoglobin Sodium Potassium Chloride Carbon Dioxide BUN Creatinine Glucose POC Glucose 192 H 151 H Lactic Acid Calcium Phosphorus Magnesium AST ALT Lactate Dehydrogenase Total Bilirubin Direct Bilirubin CK-MB (CK-2) C-Reactive Protein NT-Pro-B Natriuret Pep Total Protein Albumin Arterial Blood Glucose Urine WBC (Auto) Urine Creatinine 12/24/19 12/24/19 12/24/19 05:34 12:13 16:50 WBC RBC Hgb Hct MCHC RDW MCV MCH Lymph % (Auto) [place] % (Auto) [place] # Eos # Lymph # (Auto) [place] # (Auto) Eos # (Auto) Seg Neutrophils % Seg Neuts % (Manual) Baso # (Auto) Lymphocytes % (Manual) Monocytes % (Manual) Eosinophils % (Manual) Basophils % (Manual) Seg Neutrophils # Seg Neutrophils # Man Lymphocytes # (Manual) Monocytes # (Manual) Eosinophils # (Manual) Nucleated RBC % Basophils # (Manual) PT INR APTT Heparin Anti-Xa Level 0.16 L ABG pH POC ABG pO2 ABG pO2 ABG HCO3 ABG O2 Saturation ABG Base Excess POC ABG pCO2 ABG Hemoglobin ABG Oxyhemoglobin ABG Chloride ABG Glucose Oxyhemoglobin Sodium Potassium Chloride Carbon Dioxide BUN Creatinine Glucose POC Glucose 145 H 124 H Lactic Acid Calcium Phosphorus Magnesium AST ALT Lactate Dehydrogenase Total Bilirubin Direct Bilirubin CK-MB (CK-2) C-Reactive Protein NT-Pro-B Natriuret Pep Total Protein Albumin Arterial Blood Glucose Urine WBC (Auto) Urine Creatinine 12/24/19 12/25/19 12/25/19 17:53 00:14 04:18 WBC 12.9 H RBC 3.30 L Hgb 9.1 L Hct 28.8 L MCHC RDW 16.4 H MCV MCH Lymph % (Auto) [place] % (Auto) 7.8 H [place] # Eos # Lymph # (Auto) [place] # (Auto) 1.0 H Eos # (Auto) Seg Neutrophils % 75.5 H Seg Neuts % (Manual) Baso # (Auto) Lymphocytes % (Manual) Monocytes % (Manual) Eosinophils % (Manual) Basophils % (Manual) Seg Neutrophils # 9.7 H Seg Neutrophils # Man Lymphocytes # (Manual) Monocytes # (Manual) Eosinophils # (Manual) Nucleated RBC % Basophils # (Manual) PT INR APTT Heparin Anti-Xa Level ABG pH POC ABG pO2 ABG pO2 ABG HCO3 ABG O2 Saturation ABG Base Excess POC ABG pCO2 ABG Hemoglobin ABG Oxyhemoglobin ABG Chloride ABG Glucose Oxyhemoglobin Sodium Potassium Chloride Carbon Dioxide BUN Creatinine Glucose POC Glucose 164 H 148 H Lactic Acid Calcium Phosphorus Magnesium AST ALT Lactate Dehydrogenase Total Bilirubin Direct Bilirubin CK-MB (CK-2) C-Reactive Protein NT-Pro-B Natriuret Pep Total Protein Albumin Arterial Blood Glucose Urine WBC (Auto) Urine Creatinine 12/25/19 12/25/19 12/25/19 04:18 05:38 11:44 WBC RBC Hgb Hct MCHC RDW MCV MCH Lymph % (Auto) [place] % (Auto) [place] # Eos # Lymph # (Auto) [place] # (Auto) Eos # (Auto) Seg Neutrophils % Seg Neuts % (Manual) Baso # (Auto) Lymphocytes % (Manual) Monocytes % (Manual) Eosinophils % (Manual) Basophils % (Manual) Seg Neutrophils # Seg Neutrophils # Man Lymphocytes # (Manual) Monocytes # (Manual) Eosinophils # (Manual) Nucleated RBC % Basophils # (Manual) PT INR APTT Heparin Anti-Xa Level ABG pH POC ABG pO2 ABG pO2 ABG HCO3 ABG O2 Saturation ABG Base Excess POC ABG pCO2 ABG Hemoglobin ABG Oxyhemoglobin ABG Chloride ABG Glucose Oxyhemoglobin Sodium Potassium Chloride Carbon Dioxide 33 H BUN 27 H Creatinine 0.6 L Glucose 132 H POC Glucose 152 H 166 H Lactic Acid Calcium Phosphorus Magnesium AST ALT Lactate Dehydrogenase Total Bilirubin Direct Bilirubin CK-MB (CK-2) C-Reactive Protein NT-Pro-B Natriuret Pep Total Protein Albumin Arterial Blood Glucose Urine WBC (Auto) Urine Creatinine 12/25/19 12/26/19 12/26/19 18:29 00:17 00:18 WBC RBC Hgb Hct MCHC RDW MCV MCH Lymph % (Auto) [place] % (Auto) [place] # Eos # Lymph # (Auto) [place] # (Auto) Eos # (Auto) Seg Neutrophils % Seg Neuts % (Manual) Baso # (Auto) Lymphocytes % (Manual) Monocytes % (Manual) Eosinophils % (Manual) Basophils % (Manual) Seg Neutrophils # Seg Neutrophils # Man Lymphocytes # (Manual) Monocytes # (Manual) Eosinophils # (Manual) Nucleated RBC % Basophils # (Manual) PT INR APTT Heparin Anti-Xa Level ABG pH POC ABG pO2 ABG pO2 ABG HCO3 ABG O2 Saturation ABG Base Excess POC ABG pCO2 ABG Hemoglobin ABG Oxyhemoglobin ABG Chloride ABG Glucose Oxyhemoglobin Sodium Potassium Chloride 97.8 L Carbon Dioxide BUN 25 H Creatinine 0.6 L Glucose 140 H POC Glucose 194 H 151 H Lactic Acid Calcium Phosphorus Magnesium AST ALT Lactate Dehydrogenase Total Bilirubin Direct Bilirubin CK-MB (CK-2) C-Reactive Protein NT-Pro-B Natriuret Pep Total Protein Albumin Arterial Blood Glucose Urine WBC (Auto) Urine Creatinine 12/26/19 12/26/19 12/26/19 05:36 11:41 17:50 WBC RBC Hgb Hct MCHC RDW MCV MCH Lymph % (Auto) [place] % (Auto) [place] # Eos # Lymph # (Auto) [place] # (Auto) Eos # (Auto) Seg Neutrophils % Seg Neuts % (Manual) Baso # (Auto) Lymphocytes % (Manual) Monocytes % (Manual) Eosinophils % (Manual) Basophils % (Manual) Seg Neutrophils # Seg Neutrophils # Man Lymphocytes # (Manual) Monocytes # (Manual) Eosinophils # (Manual) Nucleated RBC % Basophils # (Manual) PT INR APTT Heparin Anti-Xa Level ABG pH POC ABG pO2 ABG pO2 ABG HCO3 ABG O2 Saturation ABG Base Excess POC ABG pCO2 ABG Hemoglobin ABG Oxyhemoglobin ABG Chloride ABG Glucose Oxyhemoglobin Sodium Potassium Chloride Carbon Dioxide BUN Creatinine Glucose POC Glucose 156 H 148 H 139 H Lactic Acid Calcium Phosphorus Magnesium AST ALT Lactate Dehydrogenase Total Bilirubin Direct Bilirubin CK-MB (CK-2) C-Reactive Protein NT-Pro-B Natriuret Pep Total Protein Albumin Arterial Blood Glucose Urine WBC (Auto) Urine Creatinine 12/26/19 12/27/19 12/27/19 23:19 05:34 12:02 WBC RBC Hgb Hct MCHC RDW MCV MCH Lymph % (Auto) [place] % (Auto) [place] # Eos # Lymph # (Auto) [place] # (Auto) Eos # (Auto) Seg Neutrophils % Seg Neuts % (Manual) Baso # (Auto) Lymphocytes % (Manual) Monocytes % (Manual) Eosinophils % (Manual) Basophils % (Manual) Seg Neutrophils # Seg Neutrophils # Man Lymphocytes # (Manual) Monocytes # (Manual) Eosinophils # (Manual) Nucleated RBC % Basophils # (Manual) PT INR APTT Heparin Anti-Xa Level ABG pH POC ABG pO2 ABG pO2 ABG HCO3 ABG O2 Saturation ABG Base Excess POC ABG pCO2 ABG Hemoglobin ABG Oxyhemoglobin ABG Chloride ABG Glucose Oxyhemoglobin Sodium Potassium Chloride Carbon Dioxide BUN Creatinine Glucose POC Glucose 161 H 145 H 157 H Lactic Acid Calcium Phosphorus Magnesium AST ALT Lactate Dehydrogenase Total Bilirubin Direct Bilirubin CK-MB (CK-2) C-Reactive Protein NT-Pro-B Natriuret Pep Total Protein Albumin Arterial Blood Glucose Urine WBC (Auto) Urine Creatinine 12/27/19 12/27/19 12/27/19 17:35 20:11 23:00 WBC RBC Hgb Hct MCHC RDW MCV MCH Lymph % (Auto) [place] % (Auto) [place] # Eos # Lymph # (Auto) [place] # (Auto) Eos # (Auto) Seg Neutrophils % Seg Neuts % (Manual) Baso # (Auto) Lymphocytes % (Manual) Monocytes % (Manual) Eosinophils % (Manual) Basophils % (Manual) Seg Neutrophils # Seg Neutrophils # Man Lymphocytes # (Manual) Monocytes # (Manual) Eosinophils # (Manual) Nucleated RBC % Basophils # (Manual) PT INR APTT Heparin Anti-Xa Level 0.19 L ABG pH POC ABG pO2 ABG pO2 ABG HCO3 ABG O2 Saturation ABG Base Excess POC ABG pCO2 ABG Hemoglobin ABG Oxyhemoglobin ABG Chloride ABG Glucose Oxyhemoglobin Sodium Potassium Chloride Carbon Dioxide BUN Creatinine Glucose POC Glucose 158 H 155 H Lactic Acid Calcium Phosphorus Magnesium AST ALT Lactate Dehydrogenase Total Bilirubin Direct Bilirubin CK-MB (CK-2) C-Reactive Protein NT-Pro-B Natriuret Pep Total Protein Albumin Arterial Blood Glucose Urine WBC (Auto) Urine Creatinine 12/27/19 12/28/19 12/28/19 23:45 02:41 02:41 WBC 13.0 H RBC 3.48 L Hgb 9.5 L Hct 30.6 L MCHC 31 L RDW 16.6 H MCV MCH 27 L Lymph % (Auto) 13.0 L [place] % (Auto) 8.0 H [place] # Eos # Lymph # (Auto) [place] # (Auto) 1.0 H Eos # (Auto) Seg Neutrophils % 76.3 H Seg Neuts % (Manual) Baso # (Auto) Lymphocytes % (Manual) Monocytes % (Manual) Eosinophils % (Manual) Basophils % (Manual) Seg Neutrophils # 9.9 H Seg Neutrophils # Man Lymphocytes # (Manual) Monocytes # (Manual) Eosinophils # (Manual) Nucleated RBC % Basophils # (Manual) PT INR APTT Heparin Anti-Xa Level ABG pH POC ABG pO2 ABG pO2 ABG HCO3 ABG O2 Saturation ABG Base Excess POC ABG pCO2 ABG Hemoglobin ABG Oxyhemoglobin ABG Chloride ABG Glucose Oxyhemoglobin Sodium Potassium Chloride Carbon Dioxide BUN 22 H Creatinine 0.6 L Glucose 101 H POC Glucose 130 H Lactic Acid Calcium Phosphorus Magnesium AST ALT Lactate Dehydrogenase Total Bilirubin Direct Bilirubin CK-MB (CK-2) C-Reactive Protein NT-Pro-B Natriuret Pep Total Protein Albumin Arterial Blood Glucose Urine WBC (Auto) Urine Creatinine 12/28/19 12/28/19 12/28/19 06:00 12:34 18:13 WBC RBC Hgb Hct MCHC RDW MCV MCH Lymph % (Auto) [place] % (Auto) [place] # Eos # Lymph # (Auto) [place] # (Auto) Eos # (Auto) Seg Neutrophils % Seg Neuts % (Manual) Baso # (Auto) Lymphocytes % (Manual) Monocytes % (Manual) Eosinophils % (Manual) Basophils % (Manual) Seg Neutrophils # Seg Neutrophils # Man Lymphocytes # (Manual) Monocytes # (Manual) Eosinophils # (Manual) Nucleated RBC % Basophils # (Manual) PT INR APTT Heparin Anti-Xa Level ABG pH POC ABG pO2 ABG pO2 ABG HCO3 ABG O2 Saturation ABG Base Excess POC ABG pCO2 ABG Hemoglobin ABG Oxyhemoglobin ABG Chloride ABG Glucose Oxyhemoglobin Sodium Potassium Chloride Carbon Dioxide BUN Creatinine Glucose POC Glucose 150 H 161 H 128 H Lactic Acid Calcium Phosphorus Magnesium AST ALT Lactate Dehydrogenase Total Bilirubin Direct Bilirubin CK-MB (CK-2) C-Reactive Protein NT-Pro-B Natriuret Pep Total Protein Albumin Arterial Blood Glucose Urine WBC (Auto) Urine Creatinine 12/28/19 12/29/19 12/29/19 23:36 05:21 11:40 WBC RBC Hgb Hct MCHC RDW MCV MCH Lymph % (Auto) [place] % (Auto) [place] # Eos # Lymph # (Auto) [place] # (Auto) Eos # (Auto) Seg Neutrophils % Seg Neuts % (Manual) Baso # (Auto) Lymphocytes % (Manual) Monocytes % (Manual) Eosinophils % (Manual) Basophils % (Manual) Seg Neutrophils # Seg Neutrophils # Man Lymphocytes # (Manual) Monocytes # (Manual) Eosinophils # (Manual) Nucleated RBC % Basophils # (Manual) PT INR APTT Heparin Anti-Xa Level ABG pH POC ABG pO2 ABG pO2 ABG HCO3 ABG O2 Saturation ABG Base Excess POC ABG pCO2 ABG Hemoglobin ABG Oxyhemoglobin ABG Chloride ABG Glucose Oxyhemoglobin Sodium Potassium Chloride Carbon Dioxide BUN Creatinine Glucose POC Glucose 137 H 136 H 166 H Lactic Acid Calcium Phosphorus Magnesium AST ALT Lactate Dehydrogenase Total Bilirubin Direct Bilirubin CK-MB (CK-2) C-Reactive Protein NT-Pro-B Natriuret Pep Total Protein Albumin Arterial Blood Glucose Urine WBC (Auto) Urine Creatinine 12/29/19 12/29/19 12/29/19 17:23 19:21 23:38 WBC RBC Hgb Hct MCHC RDW MCV MCH Lymph % (Auto) [place] % (Auto) [place] # Eos # Lymph # (Auto) [place] # (Auto) Eos # (Auto) Seg Neutrophils % Seg Neuts % (Manual) Baso # (Auto) Lymphocytes % (Manual) Monocytes % (Manual) Eosinophils % (Manual) Basophils % (Manual) Seg Neutrophils # Seg Neutrophils # Man Lymphocytes # (Manual) Monocytes # (Manual) Eosinophils # (Manual) Nucleated RBC % Basophils # (Manual) PT INR APTT Heparin Anti-Xa Level 0.20 L ABG pH POC ABG pO2 ABG pO2 ABG HCO3 ABG O2 Saturation ABG Base Excess POC ABG pCO2 ABG Hemoglobin ABG Oxyhemoglobin ABG Chloride ABG Glucose Oxyhemoglobin Sodium Potassium Chloride Carbon Dioxide BUN Creatinine Glucose POC Glucose 144 H 141 H Lactic Acid Calcium Phosphorus Magnesium AST ALT Lactate Dehydrogenase Total Bilirubin Direct Bilirubin CK-MB (CK-2) C-Reactive Protein NT-Pro-B Natriuret Pep Total Protein Albumin Arterial Blood Glucose Urine WBC (Auto) Urine Creatinine 12/30/19 12/30/19 12/30/19 03:58 03:58 04:59 WBC RBC 3.54 L Hgb 9.8 L Hct 30.7 L MCHC RDW 16.8 H MCV MCH Lymph % (Auto) [place] % (Auto) [place] # Eos # Lymph # (Auto) [place] # (Auto) Eos # (Auto) Seg Neutrophils % Seg Neuts % (Manual) Baso # (Auto) Lymphocytes % (Manual) Monocytes % (Manual) Eosinophils % (Manual) Basophils % (Manual) Seg Neutrophils # Seg Neutrophils # Man Lymphocytes # (Manual) Monocytes # (Manual) Eosinophils # (Manual) Nucleated RBC % Basophils # (Manual) PT INR APTT Heparin Anti-Xa Level ABG pH POC ABG pO2 ABG pO2 ABG HCO3 29.8 H ABG O2 Saturation ABG Base Excess 4.8 H POC ABG pCO2 ABG Hemoglobin 11.2 L ABG Oxyhemoglobin ABG Chloride ABG Glucose Oxyhemoglobin 93.8 L Sodium Potassium Chloride 97.8 L Carbon Dioxide BUN 26 H Creatinine Glucose 168 H POC Glucose Lactic Acid Calcium Phosphorus Magnesium AST ALT Lactate Dehydrogenase Total Bilirubin Direct Bilirubin CK-MB (CK-2) C-Reactive Protein NT-Pro-B Natriuret Pep Total Protein Albumin Arterial Blood Glucose Urine WBC (Auto) Urine Creatinine 12/30/19 12/30/19 12/30/19 05:45 11:34 17:28 WBC RBC Hgb Hct MCHC RDW MCV MCH Lymph % (Auto) [place] % (Auto) [place] # Eos # Lymph # (Auto) [place] # (Auto) Eos # (Auto) Seg Neutrophils % Seg Neuts % (Manual) Baso # (Auto) Lymphocytes % (Manual) Monocytes % (Manual) Eosinophils % (Manual) Basophils % (Manual) Seg Neutrophils # Seg Neutrophils # Man Lymphocytes # (Manual) Monocytes # (Manual) Eosinophils # (Manual) Nucleated RBC % Basophils # (Manual) PT INR APTT Heparin Anti-Xa Level ABG pH POC ABG pO2 ABG pO2 ABG HCO3 ABG O2 Saturation ABG Base Excess POC ABG pCO2 ABG Hemoglobin ABG Oxyhemoglobin ABG Chloride ABG Glucose Oxyhemoglobin Sodium Potassium Chloride Carbon Dioxide BUN Creatinine Glucose POC Glucose 163 H 180 H 150 H Lactic Acid Calcium Phosphorus Magnesium AST ALT Lactate Dehydrogenase Total Bilirubin Direct Bilirubin CK-MB (CK-2) C-Reactive Protein NT-Pro-B Natriuret Pep Total Protein Albumin Arterial Blood Glucose Urine WBC (Auto) Urine Creatinine 12/30/19 12/31/19 12/31/19 23:43 04:55 05:07 WBC RBC Hgb Hct MCHC RDW MCV MCH Lymph % (Auto) [place] % (Auto) [place] # Eos # Lymph # (Auto) [place] # (Auto) Eos # (Auto) Seg Neutrophils % Seg Neuts % (Manual) Baso # (Auto) Lymphocytes % (Manual) Monocytes % (Manual) Eosinophils % (Manual) Basophils % (Manual) Seg Neutrophils # Seg Neutrophils # Man Lymphocytes # (Manual) Monocytes # (Manual) Eosinophils # (Manual) Nucleated RBC % Basophils # (Manual) PT INR APTT Heparin Anti-Xa Level ABG pH POC ABG pO2 ABG pO2 ABG HCO3 ABG O2 Saturation ABG Base Excess POC ABG pCO2 ABG Hemoglobin ABG Oxyhemoglobin ABG Chloride ABG Glucose Oxyhemoglobin Sodium Potassium 5.6 H D Chloride Carbon Dioxide BUN 33 H Creatinine Glucose 131 H POC Glucose 142 H 134 H Lactic Acid Calcium Phosphorus Magnesium AST ALT Lactate Dehydrogenase Total Bilirubin Direct Bilirubin CK-MB (CK-2) C-Reactive Protein NT-Pro-B Natriuret Pep Total Protein Albumin Arterial Blood Glucose Urine WBC (Auto) Urine Creatinine 12/31/19 12/31/19 12/31/19 11:30 17:19 17:36 WBC RBC Hgb Hct MCHC RDW MCV MCH Lymph % (Auto) [place] % (Auto) [place] # Eos # Lymph # (Auto) [place] # (Auto) Eos # (Auto) Seg Neutrophils % Seg Neuts % (Manual) Baso # (Auto) Lymphocytes % (Manual) Monocytes % (Manual) Eosinophils % (Manual) Basophils % (Manual) Seg Neutrophils # Seg Neutrophils # Man Lymphocytes # (Manual) Monocytes # (Manual) Eosinophils # (Manual) Nucleated RBC % Basophils # (Manual) PT INR APTT Heparin Anti-Xa Level ABG pH POC ABG pO2 ABG pO2 ABG HCO3 ABG O2 Saturation ABG Base Excess POC ABG pCO2 ABG Hemoglobin ABG Oxyhemoglobin ABG Chloride ABG Glucose Oxyhemoglobin Sodium Potassium Chloride Carbon Dioxide BUN 35 H Creatinine Glucose 156 H POC Glucose 158 H 181 H Lactic Acid Calcium Phosphorus Magnesium AST ALT Lactate Dehydrogenase Total Bilirubin Direct Bilirubin CK-MB (CK-2) C-Reactive Protein NT-Pro-B Natriuret Pep Total Protein Albumin Arterial Blood Glucose Urine WBC (Auto) Urine Creatinine 12/31/19 12/31/19 12/31/19 18:16 19:41 21:53 WBC RBC Hgb Hct MCHC RDW MCV MCH Lymph % (Auto) [place] % (Auto) [place] # Eos # Lymph # (Auto) [place] # (Auto) Eos # (Auto) Seg Neutrophils % Seg Neuts % (Manual) Baso # (Auto) Lymphocytes % (Manual) Monocytes % (Manual) Eosinophils % (Manual) Basophils % (Manual) Seg Neutrophils # Seg Neutrophils # Man Lymphocytes # (Manual) Monocytes # (Manual) Eosinophils # (Manual) Nucleated RBC % Basophils # (Manual) PT INR APTT Heparin Anti-Xa Level 0.20 L ABG pH POC ABG pO2 ABG pO2 ABG HCO3 ABG O2 Saturation ABG Base Excess POC ABG pCO2 ABG Hemoglobin ABG Oxyhemoglobin ABG Chloride ABG Glucose Oxyhemoglobin Sodium Potassium Chloride Carbon Dioxide BUN 34 H Creatinine Glucose 169 H POC Glucose 141 H Lactic Acid Calcium Phosphorus Magnesium AST ALT Lactate Dehydrogenase Total Bilirubin Direct Bilirubin CK-MB (CK-2) C-Reactive Protein NT-Pro-B Natriuret Pep Total Protein Albumin Arterial Blood Glucose Urine WBC (Auto) Urine Creatinine 12/31/19 01/01/20 01/01/20 23:51 05:17 10:40 WBC RBC Hgb Hct MCHC RDW MCV MCH Lymph % (Auto) [place] % (Auto) [place] # Eos # Lymph # (Auto) [place] # (Auto) Eos # (Auto) Seg Neutrophils % Seg Neuts % (Manual) Baso # (Auto) Lymphocytes % (Manual) Monocytes % (Manual) Eosinophils % (Manual) Basophils % (Manual) Seg Neutrophils # Seg Neutrophils # Man Lymphocytes # (Manual) Monocytes # (Manual) Eosinophils # (Manual) Nucleated RBC % Basophils # (Manual) PT INR APTT Heparin Anti-Xa Level ABG pH POC ABG pO2 ABG pO2 ABG HCO3 ABG O2 Saturation ABG Base Excess POC ABG pCO2 ABG Hemoglobin ABG Oxyhemoglobin ABG Chloride ABG Glucose Oxyhemoglobin Sodium Potassium Chloride Carbon Dioxide BUN 31 H Creatinine 0.7 L Glucose 137 H POC Glucose 131 H 155 H Lactic Acid Calcium Phosphorus Magnesium AST 73 H ALT 97 H Lactate Dehydrogenase Total Bilirubin Direct Bilirubin CK-MB (CK-2) C-Reactive Protein NT-Pro-B Natriuret Pep 3866 H Total Protein Albumin 2.8 L Arterial Blood Glucose Urine WBC (Auto) Urine Creatinine 01/01/20 01/01/20 01/01/20 12:26 15:33 17:53 WBC 14.3 H RBC 3.35 L Hgb 9.1 L Hct 28.8 L MCHC RDW 17.0 H MCV MCH 27 L Lymph % (Auto) 7.0 L [place] % (Auto) 7.6 H [place] # Eos # Lymph # (Auto) 1.0 L [place] # (Auto) 1.1 H Eos # (Auto) Seg Neutrophils % 83.3 H Seg Neuts % (Manual) Baso # (Auto) Lymphocytes % (Manual) Monocytes % (Manual) Eosinophils % (Manual) Basophils % (Manual) Seg Neutrophils # 12.0 H Seg Neutrophils # Man Lymphocytes # (Manual) Monocytes # (Manual) Eosinophils # (Manual) Nucleated RBC % Basophils # (Manual) PT INR APTT Heparin Anti-Xa Level ABG pH POC ABG pO2 ABG pO2 ABG HCO3 ABG O2 Saturation ABG Base Excess POC ABG pCO2 ABG Hemoglobin ABG Oxyhemoglobin ABG Chloride ABG Glucose Oxyhemoglobin Sodium Potassium Chloride Carbon Dioxide BUN Creatinine Glucose POC Glucose 128 H 128 H Lactic Acid Calcium Phosphorus Magnesium AST ALT Lactate Dehydrogenase Total Bilirubin Direct Bilirubin CK-MB (CK-2) C-Reactive Protein NT-Pro-B Natriuret Pep Total Protein Albumin Arterial Blood Glucose Urine WBC (Auto) Urine Creatinine 01/01/20 01/02/20 01/02/20 23:04 05:39 07:00 WBC RBC Hgb Hct MCHC RDW MCV MCH Lymph % (Auto) [place] % (Auto) [place] # Eos # Lymph # (Auto) [place] # (Auto) Eos # (Auto) Seg Neutrophils % Seg Neuts % (Manual) Baso # (Auto) Lymphocytes % (Manual) Monocytes % (Manual) Eosinophils % (Manual) Basophils % (Manual) Seg Neutrophils # Seg Neutrophils # Man Lymphocytes # (Manual) Monocytes # (Manual) Eosinophils # (Manual) Nucleated RBC % Basophils # (Manual) PT INR APTT Heparin Anti-Xa Level 0.13 L ABG pH POC ABG pO2 ABG pO2 ABG HCO3 ABG O2 Saturation ABG Base Excess POC ABG pCO2 ABG Hemoglobin ABG Oxyhemoglobin ABG Chloride ABG Glucose Oxyhemoglobin Sodium Potassium Chloride Carbon Dioxide BUN Creatinine Glucose POC Glucose 120 H 169 H Lactic Acid Calcium Phosphorus Magnesium AST ALT Lactate Dehydrogenase Total Bilirubin Direct Bilirubin CK-MB (CK-2) C-Reactive Protein NT-Pro-B Natriuret Pep Total Protein Albumin Arterial Blood Glucose Urine WBC (Auto) Urine Creatinine 10/10/20 10/10/20 10/10/20 12:15 14:06 17:58 WBC RBC Hgb Hct MCHC RDW MCV MCH Lymph % (Auto) [place] % (Auto) [place] # Eos # Lymph # (Auto) [place] # (Auto) Eos # (Auto) Seg Neutrophils % Seg Neuts % (Manual) Baso # (Auto) Lymphocytes % (Manual) Monocytes % (Manual) Eosinophils % (Manual) Basophils % (Manual) Seg Neutrophils # Seg Neutrophils # Man Lymphocytes # (Manual) Monocytes # (Manual) Eosinophils # (Manual) Nucleated RBC % Basophils # (Manual) PT INR APTT Heparin Anti-Xa Level < 0.10 L ABG pH POC ABG pO2 ABG pO2 ABG HCO3 ABG O2 Saturation ABG Base Excess POC ABG pCO2 ABG Hemoglobin ABG Oxyhemoglobin ABG Chloride ABG Glucose Oxyhemoglobin Sodium Potassium Chloride Carbon Dioxide BUN Creatinine Glucose POC Glucose 190 H 198 H Lactic Acid Calcium Phosphorus Magnesium AST ALT Lactate Dehydrogenase Total Bilirubin Direct Bilirubin CK-MB (CK-2) C-Reactive Protein NT-Pro-B Natriuret Pep Total Protein Albumin Arterial Blood Glucose Urine WBC (Auto) Urine Creatinine 01/02/20 01/02/20 01/03/20 21:43 23:33 05:42 WBC RBC Hgb Hct MCHC RDW MCV MCH Lymph % (Auto) [place] % (Auto) [place] # Eos # Lymph # (Auto) [place] # (Auto) Eos # (Auto) Seg Neutrophils % Seg Neuts % (Manual) Baso # (Auto) Lymphocytes % (Manual) Monocytes % (Manual) Eosinophils % (Manual) Basophils % (Manual) Seg Neutrophils # Seg Neutrophils # Man Lymphocytes # (Manual) Monocytes # (Manual) Eosinophils # (Manual) Nucleated RBC % Basophils # (Manual) PT INR APTT Heparin Anti-Xa Level 0.10 L ABG pH POC ABG pO2 ABG pO2 ABG HCO3 ABG O2 Saturation ABG Base Excess POC ABG pCO2 ABG Hemoglobin ABG Oxyhemoglobin ABG Chloride ABG Glucose Oxyhemoglobin Sodium Potassium Chloride Carbon Dioxide BUN Creatinine Glucose POC Glucose 180 H 163 H Lactic Acid Calcium Phosphorus Magnesium AST ALT Lactate Dehydrogenase Total Bilirubin Direct Bilirubin CK-MB (CK-2) C-Reactive Protein NT-Pro-B Natriuret Pep Total Protein Albumin Arterial Blood Glucose Urine WBC (Auto) Urine Creatinine 01/03/20 01/03/20 01/03/20 06:50 07:25 07:45 WBC 12.1 H RBC 3.35 L Hgb 9.0 L Hct 28.9 L MCHC 31 L RDW 16.6 H MCV MCH 27 L Lymph % (Auto) 13.0 L [place] % (Auto) 8.6 H [place] # Eos # Lymph # (Auto) [place] # (Auto) 1.0 H Eos # (Auto) Seg Neutrophils % 75.9 H Seg Neuts % (Manual) Baso # (Auto) Lymphocytes % (Manual) Monocytes % (Manual) Eosinophils % (Manual) Basophils % (Manual) Seg Neutrophils # 9.2 H Seg Neutrophils # Man Lymphocytes # (Manual) Monocytes # (Manual) Eosinophils # (Manual) Nucleated RBC % Basophils # (Manual) PT INR APTT Heparin Anti-Xa Level 0.29 L ABG pH POC ABG pO2 ABG pO2 ABG HCO3 ABG O2 Saturation ABG Base Excess POC ABG pCO2 ABG Hemoglobin ABG Oxyhemoglobin ABG Chloride ABG Glucose Oxyhemoglobin Sodium Potassium 3.3 L D Chloride Carbon Dioxide 35 H D BUN 23 H Creatinine 0.6 L Glucose 149 H POC Glucose Lactic Acid Calcium Phosphorus Magnesium AST ALT 88 H Lactate Dehydrogenase Total Bilirubin Direct Bilirubin CK-MB (CK-2) C-Reactive Protein NT-Pro-B Natriuret Pep Total Protein 6.2 L Albumin 2.9 L Arterial Blood Glucose Urine WBC (Auto) Urine Creatinine 01/03/20 01/03/20 01/03/20 12:05 17:42 18:30 WBC RBC Hgb Hct MCHC RDW MCV MCH Lymph % (Auto) [place] % (Auto) [place] # Eos # Lymph # (Auto) [place] # (Auto) Eos # (Auto) Seg Neutrophils % Seg Neuts % (Manual) Baso # (Auto) Lymphocytes % (Manual) Monocytes % (Manual) Eosinophils % (Manual) Basophils % (Manual) Seg Neutrophils # Seg Neutrophils # Man Lymphocytes # (Manual) Monocytes # (Manual) Eosinophils # (Manual) Nucleated RBC % Basophils # (Manual) PT INR APTT Heparin Anti-Xa Level ABG pH POC ABG pO2 ABG pO2 70.7 L ABG HCO3 36.1 H ABG O2 Saturation 94.4 L ABG Base Excess 10.0 H POC ABG pCO2 ABG Hemoglobin 9.7 L ABG Oxyhemoglobin ABG Chloride ABG Glucose Oxyhemoglobin 91.8 L Sodium Potassium Chloride Carbon Dioxide BUN Creatinine Glucose POC Glucose 128 H 132 H Lactic Acid Calcium Phosphorus Magnesium AST ALT Lactate Dehydrogenase Total Bilirubin Direct Bilirubin CK-MB (CK-2) C-Reactive Protein NT-Pro-B Natriuret Pep Total Protein Albumin Arterial Blood Glucose Urine WBC (Auto) Urine Creatinine 01/04/20 01/04/20 01/04/20 00:10 04:26 05:23 WBC RBC Hgb Hct MCHC RDW MCV MCH Lymph % (Auto) [place] % (Auto) [place] # Eos # Lymph # (Auto) [place] # (Auto) Eos # (Auto) Seg Neutrophils % Seg Neuts % (Manual) Baso # (Auto) Lymphocytes % (Manual) Monocytes % (Manual) Eosinophils % (Manual) Basophils % (Manual) Seg Neutrophils # Seg Neutrophils # Man Lymphocytes # (Manual) Monocytes # (Manual) Eosinophils # (Manual) Nucleated RBC % Basophils # (Manual) PT INR APTT Heparin Anti-Xa Level 0.16 L ABG pH POC ABG pO2 ABG pO2 ABG HCO3 ABG O2 Saturation ABG Base Excess POC ABG pCO2 ABG Hemoglobin ABG Oxyhemoglobin ABG Chloride ABG Glucose Oxyhemoglobin Sodium Potassium Chloride Carbon Dioxide BUN Creatinine Glucose POC Glucose 121 H 119 H Lactic Acid Calcium Phosphorus Magnesium AST ALT Lactate Dehydrogenase Total Bilirubin Direct Bilirubin CK-MB (CK-2) C-Reactive Protein NT-Pro-B Natriuret Pep Total Protein Albumin Arterial Blood Glucose Urine WBC (Auto) Urine Creatinine 01/04/20 01/04/20 01/04/20 09:50 09:50 12:18 WBC 15.4 H RBC 3.30 L Hgb 8.7 L Hct 28.2 L MCHC 31 L RDW 17.0 H MCV MCH 26 L Lymph % (Auto) [place] % (Auto) 7.6 H [place] # Eos # Lymph # (Auto) [place] # (Auto) 1.2 H Eos # (Auto) Seg Neutrophils % 75.4 H Seg Neuts % (Manual) Baso # (Auto) Lymphocytes % (Manual) Monocytes % (Manual) Eosinophils % (Manual) Basophils % (Manual) Seg Neutrophils # 11.6 H Seg Neutrophils # Man Lymphocytes # (Manual) Monocytes # (Manual) Eosinophils # (Manual) Nucleated RBC % Basophils # (Manual) PT INR APTT Heparin Anti-Xa Level ABG pH POC ABG pO2 ABG pO2 ABG HCO3 ABG O2 Saturation ABG Base Excess POC ABG pCO2 ABG Hemoglobin ABG Oxyhemoglobin ABG Chloride ABG Glucose Oxyhemoglobin Sodium 148 H Potassium 3.5 L Chloride Carbon Dioxide 32 H BUN Creatinine 0.6 L Glucose 114 H POC Glucose 111 H Lactic Acid Calcium Phosphorus Magnesium AST ALT 59 H Lactate Dehydrogenase Total Bilirubin Direct Bilirubin CK-MB (CK-2) C-Reactive Protein NT-Pro-B Natriuret Pep Total Protein Albumin 2.6 L Arterial Blood Glucose Urine WBC (Auto) Urine Creatinine 01/05/20 01/05/20 01/05/20 04:05 04:05 05:19 WBC 11.7 H RBC 3.50 L Hgb 9.3 L Hct 29.9 L MCHC 31 L RDW 16.6 H MCV MCH 27 L Lymph % (Auto) 13.1 L [place] % (Auto) 9.7 H [place] # Eos # Lymph # (Auto) [place] # (Auto) 1.1 H Eos # (Auto) Seg Neutrophils % 74.0 H Seg Neuts % (Manual) Baso # (Auto) Lymphocytes % (Manual) Monocytes % (Manual) Eosinophils % (Manual) Basophils % (Manual) Seg Neutrophils # 8.6 H Seg Neutrophils # Man Lymphocytes # (Manual) Monocytes # (Manual) Eosinophils # (Manual) Nucleated RBC % Basophils # (Manual) PT INR APTT Heparin Anti-Xa Level ABG pH POC ABG pO2 ABG pO2 ABG HCO3 ABG O2 Saturation ABG Base Excess POC ABG pCO2 ABG Hemoglobin ABG Oxyhemoglobin ABG Chloride ABG Glucose Oxyhemoglobin Sodium 151 H Potassium Chloride Carbon Dioxide 34 H BUN Creatinine 0.7 L Glucose POC Glucose 112 H Lactic Acid Calcium Phosphorus Magnesium AST ALT 59 H Lactate Dehydrogenase Total Bilirubin Direct Bilirubin CK-MB (CK-2) C-Reactive Protein NT-Pro-B Natriuret Pep Total Protein 5.8 L Albumin 2.6 L Arterial Blood Glucose Urine WBC (Auto) Urine Creatinine 01/05/20 01/06/20 01/06/20 16:04 00:23 04:44 WBC RBC 3.36 L Hgb 8.9 L Hct 28.7 L MCHC 31 L RDW 16.9 H MCV MCH 26 L Lymph % (Auto) [place] % (Auto) 9.4 H [place] # Eos # Lymph # (Auto) [place] # (Auto) Eos # (Auto) Seg Neutrophils % Seg Neuts % (Manual) Baso # (Auto) Lymphocytes % (Manual) Monocytes % (Manual) Eosinophils % (Manual) Basophils % (Manual) Seg Neutrophils # Seg Neutrophils # Man Lymphocytes # (Manual) Monocytes # (Manual) Eosinophils # (Manual) Nucleated RBC % Basophils # (Manual) PT INR APTT Heparin Anti-Xa Level ABG pH POC ABG pO2 ABG pO2 ABG HCO3 ABG O2 Saturation ABG Base Excess POC ABG pCO2 ABG Hemoglobin ABG Oxyhemoglobin ABG Chloride ABG Glucose Oxyhemoglobin Sodium 151 H Potassium 3.2 L Chloride Carbon Dioxide 34 H BUN Creatinine 0.6 L Glucose POC Glucose 107 H Lactic Acid Calcium Phosphorus Magnesium AST ALT Lactate Dehydrogenase Total Bilirubin Direct Bilirubin CK-MB (CK-2) C-Reactive Protein NT-Pro-B Natriuret Pep Total Protein Albumin Arterial Blood Glucose Urine WBC (Auto) Urine Creatinine 01/06/20 01/06/20 01/06/20 04:44 05:33 12:04 WBC RBC Hgb Hct MCHC RDW MCV MCH Lymph % (Auto) [place] % (Auto) [place] # Eos # Lymph # (Auto) [place] # (Auto) Eos # (Auto) Seg Neutrophils % Seg Neuts % (Manual) Baso # (Auto) Lymphocytes % (Manual) Monocytes % (Manual) Eosinophils % (Manual) Basophils % (Manual) Seg Neutrophils # Seg Neutrophils # Man Lymphocytes # (Manual) Monocytes # (Manual) Eosinophils # (Manual) Nucleated RBC % Basophils # (Manual) PT INR APTT Heparin Anti-Xa Level ABG pH POC ABG pO2 ABG pO2 ABG HCO3 ABG O2 Saturation ABG Base Excess POC ABG pCO2 ABG Hemoglobin ABG Oxyhemoglobin ABG Chloride ABG Glucose Oxyhemoglobin Sodium 151 H Potassium 3.4 L Chloride Carbon Dioxide 33 H BUN Creatinine 0.6 L Glucose 118 H POC Glucose 118 H 123 H Lactic Acid Calcium Phosphorus Magnesium AST ALT Lactate Dehydrogenase Total Bilirubin Direct Bilirubin CK-MB (CK-2) C-Reactive Protein NT-Pro-B Natriuret Pep Total Protein 6.2 L Albumin 2.6 L Arterial Blood Glucose Urine WBC (Auto) Urine Creatinine 01/06/20 01/07/20 01/07/20 17:54 00:06 04:10 WBC RBC 3.42 L Hgb 8.9 L Hct 29.0 L MCHC 31 L RDW 17.1 H MCV MCH 26 L Lymph % (Auto) [place] % (Auto) 8.4 H [place] # Eos # Lymph # (Auto) [place] # (Auto) Eos # (Auto) Seg Neutrophils % Seg Neuts % (Manual) Baso # (Auto) Lymphocytes % (Manual) Monocytes % (Manual) Eosinophils % (Manual) Basophils % (Manual) Seg Neutrophils # Seg Neutrophils # Man Lymphocytes # (Manual) Monocytes # (Manual) Eosinophils # (Manual) Nucleated RBC % Basophils # (Manual) PT INR APTT Heparin Anti-Xa Level ABG pH POC ABG pO2 ABG pO2 ABG HCO3 ABG O2 Saturation ABG Base Excess POC ABG pCO2 ABG Hemoglobin ABG Oxyhemoglobin ABG Chloride ABG Glucose Oxyhemoglobin Sodium Potassium Chloride Carbon Dioxide BUN Creatinine Glucose POC Glucose 112 H 126 H Lactic Acid Calcium Phosphorus Magnesium AST ALT Lactate Dehydrogenase Total Bilirubin Direct Bilirubin CK-MB (CK-2) C-Reactive Protein NT-Pro-B Natriuret Pep Total Protein Albumin Arterial Blood Glucose Urine WBC (Auto) Urine Creatinine 01/07/20 01/07/20 01/07/20 04:10 05:59 12:27 WBC RBC Hgb Hct MCHC RDW MCV MCH Lymph % (Auto) [place] % (Auto) [place] # Eos # Lymph # (Auto) [place] # (Auto) Eos # (Auto) Seg Neutrophils % Seg Neuts % (Manual) Baso # (Auto) Lymphocytes % (Manual) Monocytes % (Manual) Eosinophils % (Manual) Basophils % (Manual) Seg Neutrophils # Seg Neutrophils # Man Lymphocytes # (Manual) Monocytes # (Manual) Eosinophils # (Manual) Nucleated RBC % Basophils # (Manual) PT INR APTT Heparin Anti-Xa Level ABG pH POC ABG pO2 ABG pO2 ABG HCO3 ABG O2 Saturation ABG Base Excess POC ABG pCO2 ABG Hemoglobin ABG Oxyhemoglobin ABG Chloride ABG Glucose Oxyhemoglobin Sodium 153 H Potassium 3.5 L Chloride Carbon Dioxide 34 H BUN Creatinine 0.6 L Glucose 121 H POC Glucose 121 H 126 H Lactic Acid Calcium Phosphorus Magnesium AST ALT Lactate Dehydrogenase Total Bilirubin Direct Bilirubin CK-MB (CK-2) C-Reactive Protein NT-Pro-B Natriuret Pep Total Protein 5.9 L Albumin 2.4 L Arterial Blood Glucose Urine WBC (Auto) Urine Creatinine 10/01/08/20 01/08/20 18:12 00:03 05:41 WBC RBC Hgb Hct MCHC RDW MCV MCH Lymph % (Auto) [place] % (Auto) [place] # Eos # Lymph # (Auto) [place] # (Auto) Eos # (Auto) Seg Neutrophils % Seg Neuts % (Manual) Baso # (Auto) Lymphocytes % (Manual) Monocytes % (Manual) Eosinophils % (Manual) Basophils % (Manual) Seg Neutrophils # Seg Neutrophils # Man Lymphocytes # (Manual) Monocytes # (Manual) Eosinophils # (Manual) Nucleated RBC % Basophils # (Manual) PT INR APTT Heparin Anti-Xa Level ABG pH POC ABG pO2 ABG pO2 ABG HCO3 ABG O2 Saturation ABG Base Excess POC ABG pCO2 ABG Hemoglobin ABG Oxyhemoglobin ABG Chloride ABG Glucose Oxyhemoglobin Sodium Potassium Chloride Carbon Dioxide BUN Creatinine Glucose POC Glucose 124 H 130 H 138 H Lactic Acid Calcium Phosphorus Magnesium AST ALT Lactate Dehydrogenase Total Bilirubin Direct Bilirubin CK-MB (CK-2) C-Reactive Protein NT-Pro-B Natriuret Pep Total Protein Albumin Arterial Blood Glucose Urine WBC (Auto) Urine Creatinine 01/08/20 01/08/20 01/08/20 09:28 11:42 18:21 WBC RBC Hgb Hct MCHC RDW MCV MCH Lymph % (Auto) [place] % (Auto) [place] # Eos # Lymph # (Auto) [place] # (Auto) Eos # (Auto) Seg Neutrophils % Seg Neuts % (Manual) Baso # (Auto) Lymphocytes % (Manual) Monocytes % (Manual) Eosinophils % (Manual) Basophils % (Manual) Seg Neutrophils # Seg Neutrophils # Man Lymphocytes # (Manual) Monocytes # (Manual) Eosinophils # (Manual) Nucleated RBC % Basophils # (Manual) PT INR APTT Heparin Anti-Xa Level ABG pH POC ABG pO2 ABG pO2 ABG HCO3 ABG O2 Saturation ABG Base Excess POC ABG pCO2 ABG Hemoglobin ABG Oxyhemoglobin ABG Chloride ABG Glucose Oxyhemoglobin Sodium Potassium Chloride Carbon Dioxide BUN Creatinine Glucose POC Glucose 181 H 150 H 129 H Lactic Acid Calcium Phosphorus Magnesium AST ALT Lactate Dehydrogenase Total Bilirubin Direct Bilirubin CK-MB (CK-2) C-Reactive Protein NT-Pro-B Natriuret Pep Total Protein Albumin Arterial Blood Glucose Urine WBC (Auto) Urine Creatinine 10/16/20 10/16/20 10/17/20 19:25 23:55 04:11 WBC RBC 3.43 L Hgb 8.9 L Hct 28.7 L MCHC 31 L RDW 17.6 H MCV MCH 26 L Lymph % (Auto) [place] % (Auto) 8.6 H [place] # Eos # Lymph # (Auto) [place] # (Auto) Eos # (Auto) Seg Neutrophils % Seg Neuts % (Manual) Baso # (Auto) Lymphocytes % (Manual) Monocytes % (Manual) Eosinophils % (Manual) Basophils % (Manual) Seg Neutrophils # Seg Neutrophils # Man Lymphocytes # (Manual) Monocytes # (Manual) Eosinophils # (Manual) Nucleated RBC % Basophils # (Manual) PT INR APTT Heparin Anti-Xa Level ABG pH POC ABG pO2 ABG pO2 ABG HCO3 ABG O2 Saturation ABG Base Excess POC ABG pCO2 ABG Hemoglobin ABG Oxyhemoglobin ABG Chloride ABG Glucose Oxyhemoglobin Sodium Potassium Chloride Carbon Dioxide BUN Creatinine 0.7 L Glucose 117 H POC Glucose 132 H Lactic Acid Calcium Phosphorus Magnesium AST ALT Lactate Dehydrogenase Total Bilirubin Direct Bilirubin CK-MB (CK-2) C-Reactive Protein NT-Pro-B Natriuret Pep Total Protein Albumin Arterial Blood Glucose Urine WBC (Auto) Urine Creatinine 01/09/20 01/09/20 01/09/20 04:11 05:38 22:58 WBC RBC Hgb Hct MCHC RDW MCV MCH Lymph % (Auto) [place] % (Auto) [place] # Eos # Lymph # (Auto) [place] # (Auto) Eos # (Auto) Seg Neutrophils % Seg Neuts % (Manual) Baso # (Auto) Lymphocytes % (Manual) Monocytes % (Manual) Eosinophils % (Manual) Basophils % (Manual) Seg Neutrophils # Seg Neutrophils # Man Lymphocytes # (Manual) Monocytes # (Manual) Eosinophils # (Manual) Nucleated RBC % Basophils # (Manual) PT INR APTT Heparin Anti-Xa Level ABG pH POC ABG pO2 ABG pO2 ABG HCO3 ABG O2 Saturation ABG Base Excess POC ABG pCO2 ABG Hemoglobin ABG Oxyhemoglobin ABG Chloride ABG Glucose Oxyhemoglobin Sodium 147 H Potassium 3.3 L D Chloride Carbon Dioxide 32 H BUN Creatinine 0.6 L Glucose 106 H POC Glucose 107 H 113 H Lactic Acid Calcium Phosphorus Magnesium AST ALT Lactate Dehydrogenase Total Bilirubin Direct Bilirubin CK-MB (CK-2) C-Reactive Protein NT-Pro-B Natriuret Pep Total Protein Albumin Arterial Blood Glucose Urine WBC (Auto) Urine Creatinine 01/10/20 01/10/20 01/10/20 04:05 11:36 17:54 WBC RBC Hgb Hct MCHC RDW MCV MCH Lymph % (Auto) [place] % (Auto) [place] # Eos # Lymph # (Auto) [place] # (Auto) Eos # (Auto) Seg Neutrophils % Seg Neuts % (Manual) Baso # (Auto) Lymphocytes % (Manual) Monocytes % (Manual) Eosinophils % (Manual) Basophils % (Manual) Seg Neutrophils # Seg Neutrophils # Man Lymphocytes # (Manual) Monocytes # (Manual) Eosinophils # (Manual) Nucleated RBC % Basophils # (Manual) PT INR APTT Heparin Anti-Xa Level ABG pH POC ABG pO2 ABG pO2 ABG HCO3 ABG O2 Saturation ABG Base Excess POC ABG pCO2 ABG Hemoglobin ABG Oxyhemoglobin ABG Chloride ABG Glucose Oxyhemoglobin Sodium Potassium Chloride Carbon Dioxide BUN Creatinine 0.7 L Glucose 110 H POC Glucose 129 H 117 H Lactic Acid Calcium Phosphorus Magnesium AST ALT Lactate Dehydrogenase Total Bilirubin Direct Bilirubin CK-MB (CK-2) C-Reactive Protein NT-Pro-B Natriuret Pep Total Protein Albumin Arterial Blood Glucose Urine WBC (Auto) Urine Creatinine 01/10/20 01/11/20 01/11/20 23:52 03:19 12:09 WBC RBC Hgb Hct MCHC RDW MCV MCH Lymph % (Auto) [place] % (Auto) [place] # Eos # Lymph # (Auto) [place] # (Auto) Eos # (Auto) Seg Neutrophils % Seg Neuts % (Manual) Baso # (Auto) Lymphocytes % (Manual) Monocytes % (Manual) Eosinophils % (Manual) Basophils % (Manual) Seg Neutrophils # Seg Neutrophils # Man Lymphocytes # (Manual) Monocytes # (Manual) Eosinophils # (Manual) Nucleated RBC % Basophils # (Manual) PT INR APTT Heparin Anti-Xa Level ABG pH POC ABG pO2 ABG pO2 ABG HCO3 ABG O2 Saturation ABG Base Excess POC ABG pCO2 ABG Hemoglobin ABG Oxyhemoglobin ABG Chloride ABG Glucose Oxyhemoglobin Sodium Potassium Chloride Carbon Dioxide BUN Creatinine Glucose POC Glucose 117 H 136 H 115 H Lactic Acid Calcium Phosphorus Magnesium AST ALT Lactate Dehydrogenase Total Bilirubin Direct Bilirubin CK-MB (CK-2) C-Reactive Protein NT-Pro-B Natriuret Pep Total Protein Albumin Arterial Blood Glucose Urine WBC (Auto) Urine Creatinine 01/11/20 01/11/20 01/12/20 18:27 23:28 00:23 WBC RBC Hgb 9.8 L Hct 31.6 L MCHC 31 L RDW 17.8 H MCV 83 L MCH 26 L Lymph % (Auto) [place] % (Auto) 8.0 H [place] # Eos # Lymph # (Auto) [place] # (Auto) Eos # (Auto) Seg Neutrophils % Seg Neuts % (Manual) Baso # (Auto) Lymphocytes % (Manual) Monocytes % (Manual) Eosinophils % (Manual) Basophils % (Manual) Seg Neutrophils # Seg Neutrophils # Man Lymphocytes # (Manual) Monocytes # (Manual) Eosinophils # (Manual) Nucleated RBC % Basophils # (Manual) PT INR APTT Heparin Anti-Xa Level ABG pH POC ABG pO2 ABG pO2 ABG HCO3 ABG O2 Saturation ABG Base Excess POC ABG pCO2 ABG Hemoglobin ABG Oxyhemoglobin ABG Chloride ABG Glucose Oxyhemoglobin Sodium Potassium Chloride Carbon Dioxide BUN Creatinine Glucose POC Glucose 118 H 122 H Lactic Acid Calcium Phosphorus Magnesium AST ALT Lactate Dehydrogenase Total Bilirubin Direct Bilirubin CK-MB (CK-2) C-Reactive Protein NT-Pro-B Natriuret Pep Total Protein Albumin Arterial Blood Glucose Urine WBC (Auto) Urine Creatinine 01/12/20 01/12/20 01/12/20 00:23 04:18 04:18 WBC RBC Hgb 9.6 L Hct 30.9 L MCHC 31 L RDW 17.3 H MCV 81 L MCH 25 L Lymph % (Auto) [place] % (Auto) [place] # Eos # Lymph # (Auto) [place] # (Auto) Eos # (Auto) Seg Neutrophils % Seg Neuts % (Manual) Baso # (Auto) Lymphocytes % (Manual) Monocytes % (Manual) Eosinophils % (Manual) Basophils % (Manual) Seg Neutrophils # Seg Neutrophils # Man Lymphocytes # (Manual) Monocytes # (Manual) Eosinophils # (Manual) Nucleated RBC % Basophils # (Manual) PT INR APTT Heparin Anti-Xa Level ABG pH POC ABG pO2 ABG pO2 ABG HCO3 ABG O2 Saturation ABG Base Excess POC ABG pCO2 ABG Hemoglobin ABG Oxyhemoglobin ABG Chloride ABG Glucose Oxyhemoglobin Sodium Potassium Chloride Carbon Dioxide BUN Creatinine 0.7 L 0.7 L Glucose 111 H 108 H POC Glucose Lactic Acid Calcium Phosphorus Magnesium AST ALT Lactate Dehydrogenase Total Bilirubin Direct Bilirubin CK-MB (CK-2) C-Reactive Protein NT-Pro-B Natriuret Pep Total Protein Albumin 2.6 L Arterial Blood Glucose Urine WBC (Auto) Urine Creatinine 01/12/20 01/12/20 01/12/20 06:03 12:27 13:58 WBC RBC Hgb Hct MCHC RDW MCV MCH Lymph % (Auto) [place] % (Auto) [place] # Eos # Lymph # (Auto) [place] # (Auto) Eos # (Auto) Seg Neutrophils % Seg Neuts % (Manual) Baso # (Auto) Lymphocytes % (Manual) Monocytes % (Manual) Eosinophils % (Manual) Basophils % (Manual) Seg Neutrophils # Seg Neutrophils # Man Lymphocytes # (Manual) Monocytes # (Manual) Eosinophils # (Manual) Nucleated RBC % Basophils # (Manual) PT INR APTT Heparin Anti-Xa Level ABG pH 7.453 H POC ABG pO2 76.6 L ABG pO2 ABG HCO3 ABG O2 Saturation ABG Base Excess POC ABG pCO2 ABG Hemoglobin 10.3 L ABG Oxyhemoglobin ABG Chloride ABG Glucose 99 H Oxyhemoglobin Sodium Potassium Chloride Carbon Dioxide BUN Creatinine Glucose POC Glucose 128 H 121 H Lactic Acid Calcium Phosphorus Magnesium AST ALT Lactate Dehydrogenase Total Bilirubin Direct Bilirubin CK-MB (CK-2) C-Reactive Protein NT-Pro-B Natriuret Pep Total Protein Albumin Arterial Blood Glucose 99 H Urine WBC (Auto) Urine Creatinine 01/12/20 01/13/20 01/13/20 18:24 12:01 17:46 WBC RBC Hgb Hct MCHC RDW MCV MCH Lymph % (Auto) [place] % (Auto) [place] # Eos # Lymph # (Auto) [place] # (Auto) Eos # (Auto) Seg Neutrophils % Seg Neuts % (Manual) Baso # (Auto) Lymphocytes % (Manual) Monocytes % (Manual) Eosinophils % (Manual) Basophils % (Manual) Seg Neutrophils # Seg Neutrophils # Man Lymphocytes # (Manual) Monocytes # (Manual) Eosinophils # (Manual) Nucleated RBC % Basophils # (Manual) PT INR APTT Heparin Anti-Xa Level ABG pH POC ABG pO2 ABG pO2 ABG HCO3 ABG O2 Saturation ABG Base Excess POC ABG pCO2 ABG Hemoglobin ABG Oxyhemoglobin ABG Chloride ABG Glucose Oxyhemoglobin Sodium Potassium Chloride Carbon Dioxide BUN Creatinine Glucose POC Glucose 119 H 107 H 124 H Lactic Acid Calcium Phosphorus Magnesium AST ALT Lactate Dehydrogenase Total Bilirubin Direct Bilirubin CK-MB (CK-2) C-Reactive Protein NT-Pro-B Natriuret Pep Total Protein Albumin Arterial Blood Glucose Urine WBC (Auto) Urine Creatinine 01/13/20 01/14/20 01/14/20 20:40 00:10 05:33 WBC RBC Hgb Hct MCHC RDW MCV MCH Lymph % (Auto) [place] % (Auto) [place] # Eos # Lymph # (Auto) [place] # (Auto) Eos # (Auto) Seg Neutrophils % Seg Neuts % (Manual) Baso # (Auto) Lymphocytes % (Manual) Monocytes % (Manual) Eosinophils % (Manual) Basophils % (Manual) Seg Neutrophils # Seg Neutrophils # Man Lymphocytes # (Manual) Monocytes # (Manual) Eosinophils # (Manual) Nucleated RBC % Basophils # (Manual) PT INR APTT Heparin Anti-Xa Level ABG pH POC ABG pO2 ABG pO2 65.3 L ABG HCO3 31.8 H ABG O2 Saturation 93.5 L ABG Base Excess 6.7 H POC ABG pCO2 ABG Hemoglobin 13.3 L ABG Oxyhemoglobin ABG Chloride ABG Glucose Oxyhemoglobin 90.9 L Sodium Potassium Chloride Carbon Dioxide BUN Creatinine Glucose POC Glucose 111 H 111 H Lactic Acid Calcium Phosphorus Magnesium AST ALT Lactate Dehydrogenase Total Bilirubin Direct Bilirubin CK-MB (CK-2) C-Reactive Protein NT-Pro-B Natriuret Pep Total Protein Albumin Arterial Blood Glucose Urine WBC (Auto) Urine Creatinine 01/14/20 01/14/20 01/14/20 12:10 16:14 16:14 WBC RBC Hgb 10.6 L Hct 34.2 L MCHC 31 L RDW 18.3 H MCV 83 L MCH 26 L Lymph % (Auto) [place] % (Auto) 7.4 H [place] # Eos # Lymph # (Auto) [place] # (Auto) Eos # (Auto) Seg Neutrophils % 71.9 H Seg Neuts % (Manual) Baso # (Auto) Lymphocytes % (Manual) Monocytes % (Manual) Eosinophils % (Manual) Basophils % (Manual) Seg Neutrophils # Seg Neutrophils # Man Lymphocytes # (Manual) Monocytes # (Manual) Eosinophils # (Manual) Nucleated RBC % Basophils # (Manual) PT INR APTT Heparin Anti-Xa Level ABG pH POC ABG pO2 ABG pO2 ABG HCO3 ABG O2 Saturation ABG Base Excess POC ABG pCO2 ABG Hemoglobin ABG Oxyhemoglobin ABG Chloride ABG Glucose Oxyhemoglobin Sodium Potassium Chloride Carbon Dioxide 31 H BUN Creatinine 0.6 L Glucose 131 H POC Glucose 139 H Lactic Acid Calcium Phosphorus Magnesium AST ALT Lactate Dehydrogenase Total Bilirubin Direct Bilirubin CK-MB (CK-2) C-Reactive Protein NT-Pro-B Natriuret Pep Total Protein Albumin Arterial Blood Glucose Urine WBC (Auto) Urine Creatinine 01/14/20 01/15/20 01/15/20 18:05 00:52 05:35 WBC RBC Hgb Hct MCHC RDW MCV MCH Lymph % (Auto) [place] % (Auto) [place] # Eos # Lymph # (Auto) [place] # (Auto) Eos # (Auto) Seg Neutrophils % Seg Neuts % (Manual) Baso # (Auto) Lymphocytes % (Manual) Monocytes % (Manual) Eosinophils % (Manual) Basophils % (Manual) Seg Neutrophils # Seg Neutrophils # Man Lymphocytes # (Manual) Monocytes # (Manual) Eosinophils # (Manual) Nucleated RBC % Basophils # (Manual) PT INR APTT Heparin Anti-Xa Level ABG pH POC ABG pO2 ABG pO2 ABG HCO3 ABG O2 Saturation ABG Base Excess POC ABG pCO2 ABG Hemoglobin ABG Oxyhemoglobin ABG Chloride ABG Glucose Oxyhemoglobin Sodium Potassium Chloride Carbon Dioxide BUN Creatinine Glucose POC Glucose 147 H 140 H 159 H Lactic Acid Calcium Phosphorus Magnesium AST ALT Lactate Dehydrogenase Total Bilirubin Direct Bilirubin CK-MB (CK-2) C-Reactive Protein NT-Pro-B Natriuret Pep Total Protein Albumin Arterial Blood Glucose Urine WBC (Auto) Urine Creatinine 01/15/20 01/15/20 01/16/20 12:52 17:43 00:32 WBC RBC Hgb Hct MCHC RDW MCV MCH Lymph % (Auto) [place] % (Auto) [place] # Eos # Lymph # (Auto) [place] # (Auto) Eos # (Auto) Seg Neutrophils % Seg Neuts % (Manual) Baso # (Auto) Lymphocytes % (Manual) Monocytes % (Manual) Eosinophils % (Manual) Basophils % (Manual) Seg Neutrophils # Seg Neutrophils # Man Lymphocytes # (Manual) Monocytes # (Manual) Eosinophils # (Manual) Nucleated RBC % Basophils # (Manual) PT INR APTT Heparin Anti-Xa Level ABG pH POC ABG pO2 ABG pO2 ABG HCO3 ABG O2 Saturation ABG Base Excess POC ABG pCO2 ABG Hemoglobin ABG Oxyhemoglobin ABG Chloride ABG Glucose Oxyhemoglobin Sodium Potassium Chloride Carbon Dioxide BUN Creatinine Glucose POC Glucose 164 H 167 H 153 H Lactic Acid Calcium Phosphorus Magnesium AST ALT Lactate Dehydrogenase Total Bilirubin Direct Bilirubin CK-MB (CK-2) C-Reactive Protein NT-Pro-B Natriuret Pep Total Protein Albumin Arterial Blood Glucose Urine WBC (Auto) Urine Creatinine 01/16/20 01/16/20 01/17/20 05:46 11:48 06:38 WBC RBC Hgb Hct MCHC RDW MCV MCH Lymph % (Auto) [place] % (Auto) [place] # Eos # Lymph # (Auto) [place] # (Auto) Eos # (Auto) Seg Neutrophils % Seg Neuts % (Manual) Baso # (Auto) Lymphocytes % (Manual) Monocytes % (Manual) Eosinophils % (Manual) Basophils % (Manual) Seg Neutrophils # Seg Neutrophils # Man Lymphocytes # (Manual) Monocytes # (Manual) Eosinophils # (Manual) Nucleated RBC % Basophils # (Manual) PT INR APTT Heparin Anti-Xa Level ABG pH POC ABG pO2 ABG pO2 ABG HCO3 ABG O2 Saturation ABG Base Excess POC ABG pCO2 ABG Hemoglobin ABG Oxyhemoglobin ABG Chloride ABG Glucose Oxyhemoglobin Sodium Potassium Chloride Carbon Dioxide BUN Creatinine Glucose POC Glucose 163 H 155 H 116 H Lactic Acid Calcium Phosphorus Magnesium AST ALT Lactate Dehydrogenase Total Bilirubin Direct Bilirubin CK-MB (CK-2) C-Reactive Protein NT-Pro-B Natriuret Pep Total Protein Albumin Arterial Blood Glucose Urine WBC (Auto) Urine Creatinine 01/17/20 01/17/20 01/18/20 11:36 17:43 00:12 WBC RBC Hgb Hct MCHC RDW MCV MCH Lymph % (Auto) [place] % (Auto) [place] # Eos # Lymph # (Auto) [place] # (Auto) Eos # (Auto) Seg Neutrophils % Seg Neuts % (Manual) Baso # (Auto) Lymphocytes % (Manual) Monocytes % (Manual) Eosinophils % (Manual) Basophils % (Manual) Seg Neutrophils # Seg Neutrophils # Man Lymphocytes # (Manual) Monocytes # (Manual) Eosinophils # (Manual) Nucleated RBC % Basophils # (Manual) PT INR APTT Heparin Anti-Xa Level ABG pH POC ABG pO2 ABG pO2 ABG HCO3 ABG O2 Saturation ABG Base Excess POC ABG pCO2 ABG Hemoglobin ABG Oxyhemoglobin ABG Chloride ABG Glucose Oxyhemoglobin Sodium Potassium Chloride Carbon Dioxide BUN Creatinine Glucose POC Glucose 110 H 134 H 108 H Lactic Acid Calcium Phosphorus Magnesium AST ALT Lactate Dehydrogenase Total Bilirubin Direct Bilirubin CK-MB (CK-2) C-Reactive Protein NT-Pro-B Natriuret Pep Total Protein Albumin Arterial Blood Glucose Urine WBC (Auto) Urine Creatinine 01/18/20 01/18/20 01/18/20 05:37 06:46 06:46 WBC RBC Hgb 10.1 L Hct 32.2 L MCHC 31 L RDW 18.1 H MCV 81 L MCH 25 L Lymph % (Auto) [place] % (Auto) [place] # Eos # Lymph # (Auto) [place] # (Auto) Eos # (Auto) Seg Neutrophils % 71.9 H Seg Neuts % (Manual) Baso # (Auto) Lymphocytes % (Manual) Monocytes % (Manual) Eosinophils % (Manual) Basophils % (Manual) Seg Neutrophils # Seg Neutrophils # Man Lymphocytes # (Manual) Monocytes # (Manual) Eosinophils # (Manual) Nucleated RBC % Basophils # (Manual) PT INR APTT Heparin Anti-Xa Level ABG pH POC ABG pO2 ABG pO2 ABG HCO3 ABG O2 Saturation ABG Base Excess POC ABG pCO2 ABG Hemoglobin ABG Oxyhemoglobin ABG Chloride ABG Glucose Oxyhemoglobin Sodium Potassium Chloride Carbon Dioxide BUN Creatinine 0.7 L Glucose 155 H POC Glucose 168 H Lactic Acid Calcium Phosphorus Magnesium AST ALT Lactate Dehydrogenase Total Bilirubin Direct Bilirubin CK-MB (CK-2) C-Reactive Protein NT-Pro-B Natriuret Pep Total Protein Albumin Arterial Blood Glucose Urine WBC (Auto) Urine Creatinine 01/18/20 01/18/20 01/18/20 12:05 17:14 23:28 WBC RBC Hgb Hct MCHC RDW MCV MCH Lymph % (Auto) [place] % (Auto) [place] # Eos # Lymph # (Auto) [place] # (Auto) Eos # (Auto) Seg Neutrophils % Seg Neuts % (Manual) Baso # (Auto) Lymphocytes % (Manual) Monocytes % (Manual) Eosinophils % (Manual) Basophils % (Manual) Seg Neutrophils # Seg Neutrophils # Man Lymphocytes # (Manual) Monocytes # (Manual) Eosinophils # (Manual) Nucleated RBC % Basophils # (Manual) PT INR APTT Heparin Anti-Xa Level ABG pH POC ABG pO2 ABG pO2 ABG HCO3 ABG O2 Saturation ABG Base Excess POC ABG pCO2 ABG Hemoglobin ABG Oxyhemoglobin ABG Chloride ABG Glucose Oxyhemoglobin Sodium Potassium Chloride Carbon Dioxide BUN Creatinine Glucose POC Glucose 128 H 126 H 128 H Lactic Acid Calcium Phosphorus Magnesium AST ALT Lactate Dehydrogenase Total Bilirubin Direct Bilirubin CK-MB (CK-2) C-Reactive Protein NT-Pro-B Natriuret Pep Total Protein Albumin Arterial Blood Glucose Urine WBC (Auto) Urine Creatinine 01/19/20 01/19/20 01/19/20 05:39 12:33 17:36 WBC RBC Hgb Hct MCHC RDW MCV MCH Lymph % (Auto) [place] % (Auto) [place] # Eos # Lymph # (Auto) [place] # (Auto) Eos # (Auto) Seg Neutrophils % Seg Neuts % (Manual) Baso # (Auto) Lymphocytes % (Manual) Monocytes % (Manual) Eosinophils % (Manual) Basophils % (Manual) Seg Neutrophils # Seg Neutrophils # Man Lymphocytes # (Manual) Monocytes # (Manual) Eosinophils # (Manual) Nucleated RBC % Basophils # (Manual) PT INR APTT Heparin Anti-Xa Level ABG pH POC ABG pO2 ABG pO2 ABG HCO3 ABG O2 Saturation ABG Base Excess POC ABG pCO2 ABG Hemoglobin ABG Oxyhemoglobin ABG Chloride ABG Glucose Oxyhemoglobin Sodium Potassium Chloride Carbon Dioxide BUN Creatinine Glucose POC Glucose 164 H 171 H 152 H Lactic Acid Calcium Phosphorus Magnesium AST ALT Lactate Dehydrogenase Total Bilirubin Direct Bilirubin CK-MB (CK-2) C-Reactive Protein NT-Pro-B Natriuret Pep Total Protein Albumin Arterial Blood Glucose Urine WBC (Auto) Urine Creatinine 01/20/20 01/20/20 01/20/20 00:12 05:20 05:35 WBC RBC Hgb 9.2 L Hct 29.4 L MCHC 31 L RDW 17.9 H MCV 81 L MCH 25 L Lymph % (Auto) [place] % (Auto) [place] # Eos # Lymph # (Auto) [place] # (Auto) Eos # (Auto) Seg Neutrophils % Seg Neuts % (Manual) Baso # (Auto) Lymphocytes % (Manual) Monocytes % (Manual) Eosinophils % (Manual) Basophils % (Manual) Seg Neutrophils # Seg Neutrophils # Man Lymphocytes # (Manual) Monocytes # (Manual) Eosinophils # (Manual) Nucleated RBC % Basophils # (Manual) PT INR APTT Heparin Anti-Xa Level ABG pH POC ABG pO2 ABG pO2 ABG HCO3 ABG O2 Saturation ABG Base Excess POC ABG pCO2 ABG Hemoglobin ABG Oxyhemoglobin ABG Chloride ABG Glucose Oxyhemoglobin Sodium Potassium Chloride Carbon Dioxide BUN Creatinine Glucose POC Glucose 120 H 136 H Lactic Acid Calcium Phosphorus Magnesium AST ALT Lactate Dehydrogenase Total Bilirubin Direct Bilirubin CK-MB (CK-2) C-Reactive Protein NT-Pro-B Natriuret Pep Total Protein Albumin Arterial Blood Glucose Urine WBC (Auto) Urine Creatinine 01/20/20 01/20/20 01/20/20 05:40 11:58 14:55 WBC RBC Hgb 9.0 L Hct 28.3 L MCHC RDW MCV MCH Lymph % (Auto) [place] % (Auto) [place] # Eos # Lymph # (Auto) [place] # (Auto) Eos # (Auto) Seg Neutrophils % Seg Neuts % (Manual) Baso # (Auto) Lymphocytes % (Manual) Monocytes % (Manual) Eosinophils % (Manual) Basophils % (Manual) Seg Neutrophils # Seg Neutrophils # Man Lymphocytes # (Manual) Monocytes # (Manual) Eosinophils # (Manual) Nucleated RBC % Basophils # (Manual) PT INR APTT Heparin Anti-Xa Level ABG pH POC ABG pO2 ABG pO2 ABG HCO3 ABG O2 Saturation ABG Base Excess POC ABG pCO2 ABG Hemoglobin ABG Oxyhemoglobin ABG Chloride ABG Glucose Oxyhemoglobin Sodium Potassium Chloride Carbon Dioxide 32 H BUN 22 H Creatinine 0.7 L Glucose 128 H POC Glucose 152 H Lactic Acid Calcium Phosphorus Magnesium AST ALT Lactate Dehydrogenase Total Bilirubin Direct Bilirubin CK-MB (CK-2) C-Reactive Protein NT-Pro-B Natriuret Pep Total Protein Albumin Arterial Blood Glucose Urine WBC (Auto) Urine Creatinine 01/20/20 01/20/20 01/20/20 14:55 18:14 21:35 WBC RBC Hgb Hct MCHC RDW MCV MCH Lymph % (Auto) [place] % (Auto) [place] # Eos # Lymph # (Auto) [place] # (Auto) Eos # (Auto) Seg Neutrophils % Seg Neuts % (Manual) Baso # (Auto) Lymphocytes % (Manual) Monocytes % (Manual) Eosinophils % (Manual) Basophils % (Manual) Seg Neutrophils # Seg Neutrophils # Man Lymphocytes # (Manual) Monocytes # (Manual) Eosinophils # (Manual) Nucleated RBC % Basophils # (Manual) PT 20.4 H INR 1.72 H APTT 40.6 H Heparin Anti-Xa Level > 2.00 H ABG pH POC ABG pO2 ABG pO2 ABG HCO3 ABG O2 Saturation ABG Base Excess POC ABG pCO2 ABG Hemoglobin ABG Oxyhemoglobin ABG Chloride ABG Glucose Oxyhemoglobin Sodium Potassium Chloride Carbon Dioxide BUN Creatinine Glucose POC Glucose 150 H Lactic Acid Calcium Phosphorus Magnesium AST ALT Lactate Dehydrogenase Total Bilirubin Direct Bilirubin CK-MB (CK-2) C-Reactive Protein NT-Pro-B Natriuret Pep Total Protein Albumin Arterial Blood Glucose Urine WBC (Auto) Urine Creatinine 01/21/20 01/21/20 01/21/20 00:30 05:47 05:59 WBC RBC Hgb Hct MCHC RDW MCV MCH Lymph % (Auto) [place] % (Auto) [place] # Eos # Lymph # (Auto) [place] # (Auto) Eos # (Auto) Seg Neutrophils % Seg Neuts % (Manual) Baso # (Auto) Lymphocytes % (Manual) Monocytes % (Manual) Eosinophils % (Manual) Basophils % (Manual) Seg Neutrophils # Seg Neutrophils # Man Lymphocytes # (Manual) Monocytes # (Manual) Eosinophils # (Manual) Nucleated RBC % Basophils # (Manual) PT INR APTT Heparin Anti-Xa Level 1.93 H ABG pH POC ABG pO2 ABG pO2 ABG HCO3 ABG O2 Saturation ABG Base Excess POC ABG pCO2 ABG Hemoglobin ABG Oxyhemoglobin ABG Chloride ABG Glucose Oxyhemoglobin Sodium Potassium Chloride Carbon Dioxide BUN Creatinine Glucose POC Glucose 126 H 148 H Lactic Acid Calcium Phosphorus Magnesium AST ALT Lactate Dehydrogenase Total Bilirubin Direct Bilirubin CK-MB (CK-2) C-Reactive Protein NT-Pro-B Natriuret Pep Total Protein Albumin Arterial Blood Glucose Urine WBC (Auto) Urine Creatinine 01/21/20 01/21/20 01/21/20 12:32 18:20 23:54 WBC RBC Hgb Hct MCHC RDW MCV MCH Lymph % (Auto) [place] % (Auto) [place] # Eos # Lymph # (Auto) [place] # (Auto) Eos # (Auto) Seg Neutrophils % Seg Neuts % (Manual) Baso # (Auto) Lymphocytes % (Manual) Monocytes % (Manual) Eosinophils % (Manual) Basophils % (Manual) Seg Neutrophils # Seg Neutrophils # Man Lymphocytes # (Manual) Monocytes # (Manual) Eosinophils # (Manual) Nucleated RBC % Basophils # (Manual) PT INR APTT Heparin Anti-Xa Level 1.28 H ABG pH POC ABG pO2 ABG pO2 ABG HCO3 ABG O2 Saturation ABG Base Excess POC ABG pCO2 ABG Hemoglobin ABG Oxyhemoglobin ABG Chloride ABG Glucose Oxyhemoglobin Sodium Potassium Chloride Carbon Dioxide BUN Creatinine Glucose POC Glucose 112 H 146 H Lactic Acid Calcium Phosphorus Magnesium AST ALT Lactate Dehydrogenase Total Bilirubin Direct Bilirubin CK-MB (CK-2) C-Reactive Protein NT-Pro-B Natriuret Pep Total Protein Albumin Arterial Blood Glucose Urine WBC (Auto) Urine Creatinine 01/22/20 01/22/20 01/22/20 04:45 04:45 05:48 WBC RBC Hgb 9.3 L Hct 29.0 L MCHC RDW MCV MCH Lymph % (Auto) [place] % (Auto) [place] # Eos # Lymph # (Auto) [place] # (Auto) Eos # (Auto) Seg Neutrophils % Seg Neuts % (Manual) Baso # (Auto) Lymphocytes % (Manual) Monocytes % (Manual) Eosinophils % (Manual) Basophils % (Manual) Seg Neutrophils # Seg Neutrophils # Man Lymphocytes # (Manual) Monocytes # (Manual) Eosinophils # (Manual) Nucleated RBC % Basophils # (Manual) PT INR APTT Heparin Anti-Xa Level 1.34 H ABG pH POC ABG pO2 ABG pO2 ABG HCO3 ABG O2 Saturation ABG Base Excess POC ABG pCO2 ABG Hemoglobin ABG Oxyhemoglobin ABG Chloride ABG Glucose Oxyhemoglobin Sodium Potassium Chloride Carbon Dioxide BUN Creatinine Glucose POC Glucose 142 H Lactic Acid Calcium Phosphorus Magnesium AST ALT Lactate Dehydrogenase Total Bilirubin Direct Bilirubin CK-MB (CK-2) C-Reactive Protein NT-Pro-B Natriuret Pep Total Protein Albumin Arterial Blood Glucose Urine WBC (Auto) Urine Creatinine 01/22/20 01/22/20 01/22/20 08:09 08:22 09:58 WBC RBC Hgb Hct MCHC RDW MCV MCH Lymph % (Auto) [place] % (Auto) [place] # Eos # Lymph # (Auto) [place] # (Auto) Eos # (Auto) Seg Neutrophils % Seg Neuts % (Manual) Baso # (Auto) Lymphocytes % (Manual) Monocytes % (Manual) Eosinophils % (Manual) Basophils % (Manual) Seg Neutrophils # Seg Neutrophils # Man Lymphocytes # (Manual) Monocytes # (Manual) Eosinophils # (Manual) Nucleated RBC % Basophils # (Manual) PT 16.9 H INR 1.34 H APTT Heparin Anti-Xa Level ABG pH POC ABG pO2 ABG pO2 ABG HCO3 ABG O2 Saturation ABG Base Excess POC ABG pCO2 ABG Hemoglobin ABG Oxyhemoglobin ABG Chloride ABG Glucose Oxyhemoglobin Sodium Potassium Chloride 97.8 L Carbon Dioxide BUN 29 H Creatinine Glucose 128 H POC Glucose 131 H Lactic Acid Calcium Phosphorus Magnesium AST ALT Lactate Dehydrogenase Total Bilirubin Direct Bilirubin CK-MB (CK-2) C-Reactive Protein NT-Pro-B Natriuret Pep Total Protein Albumin Arterial Blood Glucose Urine WBC (Auto) Urine Creatinine 01/22/20 01/22/20 01/22/20 12:44 16:13 18:18 WBC RBC Hgb Hct MCHC RDW MCV MCH Lymph % (Auto) [place] % (Auto) [place] # Eos # Lymph # (Auto) [place] # (Auto) Eos # (Auto) Seg Neutrophils % Seg Neuts % (Manual) Baso # (Auto) Lymphocytes % (Manual) Monocytes % (Manual) Eosinophils % (Manual) Basophils % (Manual) Seg Neutrophils # Seg Neutrophils # Man Lymphocytes # (Manual) Monocytes # (Manual) Eosinophils # (Manual) Nucleated RBC % Basophils # (Manual) PT INR APTT Heparin Anti-Xa Level ABG pH POC ABG pO2 ABG pO2 ABG HCO3 ABG O2 Saturation ABG Base Excess POC ABG pCO2 ABG Hemoglobin ABG Oxyhemoglobin ABG Chloride ABG Glucose Oxyhemoglobin Sodium Potassium Chloride Carbon Dioxide BUN Creatinine Glucose POC Glucose 156 H 133 H 155 H Lactic Acid Calcium Phosphorus Magnesium AST ALT Lactate Dehydrogenase Total Bilirubin Direct Bilirubin CK-MB (CK-2) C-Reactive Protein NT-Pro-B Natriuret Pep Total Protein Albumin Arterial Blood Glucose Urine WBC (Auto) Urine Creatinine 01/22/20 01/23/20 01/23/20 23:22 05:37 12:59 WBC RBC Hgb Hct MCHC RDW MCV MCH Lymph % (Auto) [place] % (Auto) [place] # Eos # Lymph # (Auto) [place] # (Auto) Eos # (Auto) Seg Neutrophils % Seg Neuts % (Manual) Baso # (Auto) Lymphocytes % (Manual) Monocytes % (Manual) Eosinophils % (Manual) Basophils % (Manual) Seg Neutrophils # Seg Neutrophils # Man Lymphocytes # (Manual) Monocytes # (Manual) Eosinophils # (Manual) Nucleated RBC % Basophils # (Manual) PT INR APTT Heparin Anti-Xa Level ABG pH POC ABG pO2 ABG pO2 ABG HCO3 ABG O2 Saturation ABG Base Excess POC ABG pCO2 ABG Hemoglobin ABG Oxyhemoglobin ABG Chloride ABG Glucose Oxyhemoglobin Sodium Potassium Chloride Carbon Dioxide BUN Creatinine Glucose POC Glucose 148 H 163 H 175 H Lactic Acid Calcium Phosphorus Magnesium AST ALT Lactate Dehydrogenase Total Bilirubin Direct Bilirubin CK-MB (CK-2) C-Reactive Protein NT-Pro-B Natriuret Pep Total Protein Albumin Arterial Blood Glucose Urine WBC (Auto) Urine Creatinine 01/23/20 01/23/20 01/24/20 17:28 23:56 04:30 WBC RBC 3.46 L Hgb 8.8 L Hct 27.8 L MCHC RDW 18.2 H MCV 81 L MCH 25 L Lymph % (Auto) [place] % (Auto) 7.8 H [place] # Eos # Lymph # (Auto) [place] # (Auto) Eos # (Auto) Seg Neutrophils % Seg Neuts % (Manual) Baso # (Auto) Lymphocytes % (Manual) Monocytes % (Manual) Eosinophils % (Manual) Basophils % (Manual) Seg Neutrophils # Seg Neutrophils # Man Lymphocytes # (Manual) Monocytes # (Manual) Eosinophils # (Manual) Nucleated RBC % Basophils # (Manual) PT INR APTT Heparin Anti-Xa Level ABG pH POC ABG pO2 ABG pO2 ABG HCO3 ABG O2 Saturation ABG Base Excess POC ABG pCO2 ABG Hemoglobin ABG Oxyhemoglobin ABG Chloride ABG Glucose Oxyhemoglobin Sodium Potassium Chloride Carbon Dioxide BUN Creatinine Glucose POC Glucose 165 H 177 H Lactic Acid Calcium Phosphorus Magnesium AST ALT Lactate Dehydrogenase Total Bilirubin Direct Bilirubin CK-MB (CK-2) C-Reactive Protein NT-Pro-B Natriuret Pep Total Protein Albumin Arterial Blood Glucose Urine WBC (Auto) Urine Creatinine 01/24/20 01/24/20 01/24/20 04:30 07:18 12:06 WBC RBC Hgb Hct MCHC RDW MCV MCH Lymph % (Auto) [place] % (Auto) [place] # Eos # Lymph # (Auto) [place] # (Auto) Eos # (Auto) Seg Neutrophils % Seg Neuts % (Manual) Baso # (Auto) Lymphocytes % (Manual) Monocytes % (Manual) Eosinophils % (Manual) Basophils % (Manual) Seg Neutrophils # Seg Neutrophils # Man Lymphocytes # (Manual) Monocytes # (Manual) Eosinophils # (Manual) Nucleated RBC % Basophils # (Manual) PT INR APTT Heparin Anti-Xa Level ABG pH POC ABG pO2 ABG pO2 ABG HCO3 ABG O2 Saturation ABG Base Excess POC ABG pCO2 ABG Hemoglobin ABG Oxyhemoglobin ABG Chloride ABG Glucose Oxyhemoglobin Sodium Potassium Chloride 97.9 L Carbon Dioxide BUN 31 H Creatinine Glucose 146 H POC Glucose 151 H 133 H Lactic Acid Calcium Phosphorus Magnesium AST ALT Lactate Dehydrogenase Total Bilirubin Direct Bilirubin CK-MB (CK-2) C-Reactive Protein NT-Pro-B Natriuret Pep Total Protein Albumin Arterial Blood Glucose Urine WBC (Auto) Urine Creatinine 01/24/20 01/25/20 01/25/20 17:36 00:08 04:25 WBC RBC 3.50 L Hgb 8.7 L Hct 27.9 L MCHC 31 L RDW 18.2 H MCV 80 L MCH 25 L Lymph % (Auto) [place] % (Auto) 8.5 H [place] # Eos # Lymph # (Auto) [place] # (Auto) Eos # (Auto) Seg Neutrophils % Seg Neuts % (Manual) Baso # (Auto) Lymphocytes % (Manual) Monocytes % (Manual) Eosinophils % (Manual) Basophils % (Manual) Seg Neutrophils # Seg Neutrophils # Man Lymphocytes # (Manual) Monocytes # (Manual) Eosinophils # (Manual) Nucleated RBC % Basophils # (Manual) PT INR APTT Heparin Anti-Xa Level ABG pH POC ABG pO2 ABG pO2 ABG HCO3 ABG O2 Saturation ABG Base Excess POC ABG pCO2 ABG Hemoglobin ABG Oxyhemoglobin ABG Chloride ABG Glucose Oxyhemoglobin Sodium Potassium Chloride Carbon Dioxide BUN Creatinine Glucose POC Glucose 133 H 129 H Lactic Acid Calcium Phosphorus Magnesium AST ALT Lactate Dehydrogenase Total Bilirubin Direct Bilirubin CK-MB (CK-2) C-Reactive Protein NT-Pro-B Natriuret Pep Total Protein Albumin Arterial Blood Glucose Urine WBC (Auto) Urine Creatinine 01/25/20 01/25/20 01/25/20 04:25 05:38 11:52 WBC RBC Hgb Hct MCHC RDW MCV MCH Lymph % (Auto) [place] % (Auto) [place] # Eos # Lymph # (Auto) [place] # (Auto) Eos # (Auto) Seg Neutrophils % Seg Neuts % (Manual) Baso # (Auto) Lymphocytes % (Manual) Monocytes % (Manual) Eosinophils % (Manual) Basophils % (Manual) Seg Neutrophils # Seg Neutrophils # Man Lymphocytes # (Manual) Monocytes # (Manual) Eosinophils # (Manual) Nucleated RBC % Basophils # (Manual) PT INR APTT Heparin Anti-Xa Level ABG pH POC ABG pO2 ABG pO2 ABG HCO3 ABG O2 Saturation ABG Base Excess POC ABG pCO2 ABG Hemoglobin ABG Oxyhemoglobin ABG Chloride ABG Glucose Oxyhemoglobin Sodium Potassium Chloride Carbon Dioxide BUN 30 H Creatinine Glucose 134 H POC Glucose 129 H 134 H Lactic Acid Calcium Phosphorus Magnesium AST ALT Lactate Dehydrogenase Total Bilirubin Direct Bilirubin CK-MB (CK-2) C-Reactive Protein NT-Pro-B Natriuret Pep Total Protein Albumin Arterial Blood Glucose Urine WBC (Auto) Urine Creatinine 01/25/20 01/25/20 01/26/20 17:13 21:02 00:59 WBC RBC Hgb Hct MCHC RDW MCV MCH Lymph % (Auto) [place] % (Auto) [place] # Eos # Lymph # (Auto) [place] # (Auto) Eos # (Auto) Seg Neutrophils % Seg Neuts % (Manual) Baso # (Auto) Lymphocytes % (Manual) Monocytes % (Manual) Eosinophils % (Manual) Basophils % (Manual) Seg Neutrophils # Seg Neutrophils # Man Lymphocytes # (Manual) Monocytes # (Manual) Eosinophils # (Manual) Nucleated RBC % Basophils # (Manual) PT INR APTT Heparin Anti-Xa Level ABG pH POC ABG pO2 ABG pO2 57.5 L ABG HCO3 31.7 H ABG O2 Saturation 90.3 L ABG Base Excess 6.6 H POC ABG pCO2 ABG Hemoglobin 13.0 L ABG Oxyhemoglobin ABG Chloride ABG Glucose Oxyhemoglobin 87.5 L Sodium Potassium Chloride Carbon Dioxide BUN Creatinine Glucose POC Glucose 124 H 196 H Lactic Acid Calcium Phosphorus Magnesium AST ALT Lactate Dehydrogenase Total Bilirubin Direct Bilirubin CK-MB (CK-2) C-Reactive Protein NT-Pro-B Natriuret Pep Total Protein Albumin Arterial Blood Glucose Urine WBC (Auto) Urine Creatinine 01/26/20 01/26/20 01/26/20 03:20 05:46 12:46 WBC RBC Hgb 9.2 L Hct 29.4 L MCHC RDW MCV MCH Lymph % (Auto) [place] % (Auto) [place] # Eos # Lymph # (Auto) [place] # (Auto) Eos # (Auto) Seg Neutrophils % Seg Neuts % (Manual) Baso # (Auto) Lymphocytes % (Manual) Monocytes % (Manual) Eosinophils % (Manual) Basophils % (Manual) Seg Neutrophils # Seg Neutrophils # Man Lymphocytes # (Manual) Monocytes # (Manual) Eosinophils # (Manual) Nucleated RBC % Basophils # (Manual) PT INR APTT Heparin Anti-Xa Level ABG pH POC ABG pO2 ABG pO2 ABG HCO3 ABG O2 Saturation ABG Base Excess POC ABG pCO2 ABG Hemoglobin ABG Oxyhemoglobin ABG Chloride ABG Glucose Oxyhemoglobin Sodium Potassium Chloride Carbon Dioxide BUN Creatinine Glucose POC Glucose 141 H 122 H Lactic Acid Calcium Phosphorus Magnesium AST ALT Lactate Dehydrogenase Total Bilirubin Direct Bilirubin CK-MB (CK-2) C-Reactive Protein NT-Pro-B Natriuret Pep Total Protein Albumin Arterial Blood Glucose Urine WBC (Auto) Urine Creatinine 01/26/20 01/26/20 01/27/20 18:03 23:55 04:47 WBC RBC Hgb Hct MCHC RDW MCV MCH Lymph % (Auto) [place] % (Auto) [place] # Eos # Lymph # (Auto) [place] # (Auto) Eos # (Auto) Seg Neutrophils % Seg Neuts % (Manual) Baso # (Auto) Lymphocytes % (Manual) Monocytes % (Manual) Eosinophils % (Manual) Basophils % (Manual) Seg Neutrophils # Seg Neutrophils # Man Lymphocytes # (Manual) Monocytes # (Manual) Eosinophils # (Manual) Nucleated RBC % Basophils # (Manual) PT INR APTT Heparin Anti-Xa Level ABG pH POC ABG pO2 ABG pO2 ABG HCO3 ABG O2 Saturation ABG Base Excess POC ABG pCO2 ABG Hemoglobin ABG Oxyhemoglobin ABG Chloride ABG Glucose Oxyhemoglobin Sodium Potassium Chloride Carbon Dioxide BUN 30 H Creatinine 0.7 L Glucose 135 H POC Glucose 142 H 159 H Lactic Acid Calcium Phosphorus Magnesium AST ALT Lactate Dehydrogenase Total Bilirubin Direct Bilirubin CK-MB (CK-2) C-Reactive Protein NT-Pro-B Natriuret Pep Total Protein Albumin Arterial Blood Glucose Urine WBC (Auto) Urine Creatinine 01/27/20 01/27/20 01/27/20 05:43 12:06 17:16 WBC RBC Hgb Hct MCHC RDW MCV MCH Lymph % (Auto) [place] % (Auto) [place] # Eos # Lymph # (Auto) [place] # (Auto) Eos # (Auto) Seg Neutrophils % Seg Neuts % (Manual) Baso # (Auto) Lymphocytes % (Manual) Monocytes % (Manual) Eosinophils % (Manual) Basophils % (Manual) Seg Neutrophils # Seg Neutrophils # Man Lymphocytes # (Manual) Monocytes # (Manual) Eosinophils # (Manual) Nucleated RBC % Basophils # (Manual) PT INR APTT Heparin Anti-Xa Level ABG pH POC ABG pO2 ABG pO2 ABG HCO3 ABG O2 Saturation ABG Base Excess POC ABG pCO2 ABG Hemoglobin ABG Oxyhemoglobin ABG Chloride ABG Glucose Oxyhemoglobin Sodium Potassium Chloride Carbon Dioxide BUN Creatinine Glucose POC Glucose 143 H 142 H 128 H Lactic Acid Calcium Phosphorus Magnesium AST ALT Lactate Dehydrogenase Total Bilirubin Direct Bilirubin CK-MB (CK-2) C-Reactive Protein NT-Pro-B Natriuret Pep Total Protein Albumin Arterial Blood Glucose Urine WBC (Auto) Urine Creatinine 01/27/20 01/28/20 01/28/20 23:55 04:37 05:55 WBC RBC Hgb 9.4 L Hct 29.9 L MCHC RDW MCV MCH Lymph % (Auto) [place] % (Auto) [place] # Eos # Lymph # (Auto) [place] # (Auto) Eos # (Auto) Seg Neutrophils % Seg Neuts % (Manual) Baso # (Auto) Lymphocytes % (Manual) Monocytes % (Manual) Eosinophils % (Manual) Basophils % (Manual) Seg Neutrophils # Seg Neutrophils # Man Lymphocytes # (Manual) Monocytes # (Manual) Eosinophils # (Manual) Nucleated RBC % Basophils # (Manual) PT INR APTT Heparin Anti-Xa Level ABG pH POC ABG pO2 ABG pO2 ABG HCO3 ABG O2 Saturation ABG Base Excess POC ABG pCO2 ABG Hemoglobin ABG Oxyhemoglobin ABG Chloride ABG Glucose Oxyhemoglobin Sodium Potassium Chloride Carbon Dioxide BUN Creatinine Glucose POC Glucose 166 H 169 H Lactic Acid Calcium Phosphorus Magnesium AST ALT Lactate Dehydrogenase Total Bilirubin Direct Bilirubin CK-MB (CK-2) C-Reactive Protein NT-Pro-B Natriuret Pep Total Protein Albumin Arterial Blood Glucose Urine WBC (Auto) Urine Creatinine 01/28/20 01/28/20 01/28/20 11:58 17:26 23:46 WBC RBC Hgb Hct MCHC RDW MCV MCH Lymph % (Auto) [place] % (Auto) [place] # Eos # Lymph # (Auto) [place] # (Auto) Eos # (Auto) Seg Neutrophils % Seg Neuts % (Manual) Baso # (Auto) Lymphocytes % (Manual) Monocytes % (Manual) Eosinophils % (Manual) Basophils % (Manual) Seg Neutrophils # Seg Neutrophils # Man Lymphocytes # (Manual) Monocytes # (Manual) Eosinophils # (Manual) Nucleated RBC % Basophils # (Manual) PT INR APTT Heparin Anti-Xa Level ABG pH POC ABG pO2 ABG pO2 ABG HCO3 ABG O2 Saturation ABG Base Excess POC ABG pCO2 ABG Hemoglobin ABG Oxyhemoglobin ABG Chloride ABG Glucose Oxyhemoglobin Sodium Potassium Chloride Carbon Dioxide BUN Creatinine Glucose POC Glucose 130 H 126 H 150 H Lactic Acid Calcium Phosphorus Magnesium AST ALT Lactate Dehydrogenase Total Bilirubin Direct Bilirubin CK-MB (CK-2) C-Reactive Protein NT-Pro-B Natriuret Pep Total Protein Albumin Arterial Blood Glucose Urine WBC (Auto) Urine Creatinine 01/29/20 01/29/20 01/29/20 04:55 06:00 12:28 WBC RBC Hgb Hct MCHC RDW MCV MCH Lymph % (Auto) [place] % (Auto) [place] # Eos # Lymph # (Auto) [place] # (Auto) Eos # (Auto) Seg Neutrophils % Seg Neuts % (Manual) Baso # (Auto) Lymphocytes % (Manual) Monocytes % (Manual) Eosinophils % (Manual) Basophils % (Manual) Seg Neutrophils # Seg Neutrophils # Man Lymphocytes # (Manual) Monocytes # (Manual) Eosinophils # (Manual) Nucleated RBC % Basophils # (Manual) PT INR APTT Heparin Anti-Xa Level ABG pH POC ABG pO2 ABG pO2 ABG HCO3 ABG O2 Saturation ABG Base Excess POC ABG pCO2 ABG Hemoglobin ABG Oxyhemoglobin ABG Chloride ABG Glucose Oxyhemoglobin Sodium Potassium Chloride Carbon Dioxide 34 H BUN Creatinine 0.6 L Glucose 152 H POC Glucose 157 H 156 H Lactic Acid Calcium Phosphorus Magnesium AST ALT Lactate Dehydrogenase Total Bilirubin Direct Bilirubin CK-MB (CK-2) C-Reactive Protein NT-Pro-B Natriuret Pep Total Protein Albumin Arterial Blood Glucose Urine WBC (Auto) Urine Creatinine 01/29/20 01/30/20 01/30/20 19:06 00:29 05:39 WBC RBC Hgb Hct MCHC RDW MCV MCH Lymph % (Auto) [place] % (Auto) [place] # Eos # Lymph # (Auto) [place] # (Auto) Eos # (Auto) Seg Neutrophils % Seg Neuts % (Manual) Baso # (Auto) Lymphocytes % (Manual) Monocytes % (Manual) Eosinophils % (Manual) Basophils % (Manual) Seg Neutrophils # Seg Neutrophils # Man Lymphocytes # (Manual) Monocytes # (Manual) Eosinophils # (Manual) Nucleated RBC % Basophils # (Manual) PT INR APTT Heparin Anti-Xa Level ABG pH POC ABG pO2 ABG pO2 ABG HCO3 ABG O2 Saturation ABG Base Excess POC ABG pCO2 ABG Hemoglobin ABG Oxyhemoglobin ABG Chloride ABG Glucose Oxyhemoglobin Sodium Potassium Chloride Carbon Dioxide BUN Creatinine Glucose POC Glucose 152 H 132 H 159 H Lactic Acid Calcium Phosphorus Magnesium AST ALT Lactate Dehydrogenase Total Bilirubin Direct Bilirubin CK-MB (CK-2) C-Reactive Protein NT-Pro-B Natriuret Pep Total Protein Albumin Arterial Blood Glucose Urine WBC (Auto) Urine Creatinine 01/30/20 01/30/20 01/30/20 12:27 17:42 23:28 WBC RBC Hgb Hct MCHC RDW MCV MCH Lymph % (Auto) [place] % (Auto) [place] # Eos # Lymph # (Auto) [place] # (Auto) Eos # (Auto) Seg Neutrophils % Seg Neuts % (Manual) Baso # (Auto) Lymphocytes % (Manual) Monocytes % (Manual) Eosinophils % (Manual) Basophils % (Manual) Seg Neutrophils # Seg Neutrophils # Man Lymphocytes # (Manual) Monocytes # (Manual) Eosinophils # (Manual) Nucleated RBC % Basophils # (Manual) PT INR APTT Heparin Anti-Xa Level ABG pH POC ABG pO2 ABG pO2 ABG HCO3 ABG O2 Saturation ABG Base Excess POC ABG pCO2 ABG Hemoglobin ABG Oxyhemoglobin ABG Chloride ABG Glucose Oxyhemoglobin Sodium Potassium Chloride Carbon Dioxide BUN Creatinine Glucose POC Glucose 151 H 144 H 164 H Lactic Acid Calcium Phosphorus Magnesium AST ALT Lactate Dehydrogenase Total Bilirubin Direct Bilirubin CK-MB (CK-2) C-Reactive Protein NT-Pro-B Natriuret Pep Total Protein Albumin Arterial Blood Glucose Urine WBC (Auto) Urine Creatinine 01/31/20 01/31/20 01/31/20 05:51 11:51 18:06 WBC RBC Hgb Hct MCHC RDW MCV MCH Lymph % (Auto) [place] % (Auto) [place] # Eos # Lymph # (Auto) [place] # (Auto) Eos # (Auto) Seg Neutrophils % Seg Neuts % (Manual) Baso # (Auto) Lymphocytes % (Manual) Monocytes % (Manual) Eosinophils % (Manual) Basophils % (Manual) Seg Neutrophils # Seg Neutrophils # Man Lymphocytes # (Manual) Monocytes # (Manual) Eosinophils # (Manual) Nucleated RBC % Basophils # (Manual) PT INR APTT Heparin Anti-Xa Level ABG pH POC ABG pO2 ABG pO2 ABG HCO3 ABG O2 Saturation ABG Base Excess POC ABG pCO2 ABG Hemoglobin ABG Oxyhemoglobin ABG Chloride ABG Glucose Oxyhemoglobin Sodium Potassium Chloride Carbon Dioxide BUN Creatinine Glucose POC Glucose 131 H 167 H 210 H Lactic Acid Calcium Phosphorus Magnesium AST ALT Lactate Dehydrogenase Total Bilirubin Direct Bilirubin CK-MB (CK-2) C-Reactive Protein NT-Pro-B Natriuret Pep Total Protein Albumin Arterial Blood Glucose Urine WBC (Auto) Urine Creatinine 01/31/20 01/31/20 02/01/20 19:24 Unknown 00:34 WBC RBC Hgb Hct MCHC RDW MCV MCH Lymph % (Auto) [place] % (Auto) [place] # Eos # Lymph # (Auto) [place] # (Auto) Eos # (Auto) Seg Neutrophils % Seg Neuts % (Manual) Baso # (Auto) Lymphocytes % (Manual) Monocytes % (Manual) Eosinophils % (Manual) Basophils % (Manual) Seg Neutrophils # Seg Neutrophils # Man Lymphocytes # (Manual) Monocytes # (Manual) Eosinophils # (Manual) Nucleated RBC % Basophils # (Manual) PT INR APTT Heparin Anti-Xa Level ABG pH POC ABG pO2 ABG pO2 ABG HCO3 ABG O2 Saturation ABG Base Excess POC ABG pCO2 ABG Hemoglobin ABG Oxyhemoglobin ABG Chloride ABG Glucose Oxyhemoglobin Sodium Potassium Chloride 95.3 L Carbon Dioxide 33 H BUN 36 H Creatinine Glucose 187 H POC Glucose 116 H Lactic Acid Calcium Phosphorus Magnesium AST ALT Lactate Dehydrogenase Total Bilirubin Direct Bilirubin CK-MB (CK-2) C-Reactive Protein NT-Pro-B Natriuret Pep Total Protein Albumin Arterial Blood Glucose Urine WBC (Auto) Urine Creatinine 57.4 H 02/01/20 02/01/20 02/01/20 05:24 10:40 12:29 WBC RBC Hgb Hct MCHC RDW MCV MCH Lymph % (Auto) [place] % (Auto) [place] # Eos # Lymph # (Auto) [place] # (Auto) Eos # (Auto) Seg Neutrophils % Seg Neuts % (Manual) Baso # (Auto) Lymphocytes % (Manual) Monocytes % (Manual) Eosinophils % (Manual) Basophils % (Manual) Seg Neutrophils # Seg Neutrophils # Man Lymphocytes # (Manual) Monocytes # (Manual) Eosinophils # (Manual) Nucleated RBC % Basophils # (Manual) PT INR APTT Heparin Anti-Xa Level ABG pH POC ABG pO2 ABG pO2 ABG HCO3 ABG O2 Saturation ABG Base Excess POC ABG pCO2 ABG Hemoglobin ABG Oxyhemoglobin ABG Chloride ABG Glucose Oxyhemoglobin Sodium Potassium Chloride Carbon Dioxide BUN Creatinine Glucose POC Glucose 142 H 165 H 151 H Lactic Acid Calcium Phosphorus Magnesium AST ALT Lactate Dehydrogenase Total Bilirubin Direct Bilirubin CK-MB (CK-2) C-Reactive Protein NT-Pro-B Natriuret Pep Total Protein Albumin Arterial Blood Glucose Urine WBC (Auto) Urine Creatinine 02/01/20 02/01/20 02/02/20 17:16 23:23 06:36 WBC RBC Hgb Hct MCHC RDW MCV MCH Lymph % (Auto) [place] % (Auto) [place] # Eos # Lymph # (Auto) [place] # (Auto) Eos # (Auto) Seg Neutrophils % Seg Neuts % (Manual) Baso # (Auto) Lymphocytes % (Manual) Monocytes % (Manual) Eosinophils % (Manual) Basophils % (Manual) Seg Neutrophils # Seg Neutrophils # Man Lymphocytes # (Manual) Monocytes # (Manual) Eosinophils # (Manual) Nucleated RBC % Basophils # (Manual) PT INR APTT Heparin Anti-Xa Level ABG pH POC ABG pO2 ABG pO2 ABG HCO3 ABG O2 Saturation ABG Base Excess POC ABG pCO2 ABG Hemoglobin ABG Oxyhemoglobin ABG Chloride ABG Glucose Oxyhemoglobin Sodium Potassium Chloride Carbon Dioxide BUN Creatinine Glucose POC Glucose 137 H 145 H 181 H Lactic Acid Calcium Phosphorus Magnesium AST ALT Lactate Dehydrogenase Total Bilirubin Direct Bilirubin CK-MB (CK-2) C-Reactive Protein NT-Pro-B Natriuret Pep Total Protein Albumin Arterial Blood Glucose Urine WBC (Auto) Urine Creatinine 02/02/20 02/02/20 02/02/20 10:01 12:05 17:54 WBC RBC Hgb Hct MCHC RDW MCV MCH Lymph % (Auto) [place] % (Auto) [place] # Eos # Lymph # (Auto) [place] # (Auto) Eos # (Auto) Seg Neutrophils % Seg Neuts % (Manual) Baso # (Auto) Lymphocytes % (Manual) Monocytes % (Manual) Eosinophils % (Manual) Basophils % (Manual) Seg Neutrophils # Seg Neutrophils # Man Lymphocytes # (Manual) Monocytes # (Manual) Eosinophils # (Manual) Nucleated RBC % Basophils # (Manual) PT INR APTT Heparin Anti-Xa Level ABG pH POC ABG pO2 ABG pO2 ABG HCO3 ABG O2 Saturation ABG Base Excess POC ABG pCO2 ABG Hemoglobin ABG Oxyhemoglobin ABG Chloride ABG Glucose Oxyhemoglobin Sodium Potassium Chloride 95.3 L Carbon Dioxide BUN 44 H Creatinine Glucose 234 H POC Glucose 184 H 127 H Lactic Acid Calcium Phosphorus Magnesium AST 363 H ALT 457 H Lactate Dehydrogenase Total Bilirubin Direct Bilirubin CK-MB (CK-2) C-Reactive Protein NT-Pro-B Natriuret Pep Total Protein Albumin 3.0 L Arterial Blood Glucose Urine WBC (Auto) Urine Creatinine 02/02/20 02/03/20 02/03/20 23:47 05:32 07:04 WBC 13.0 H RBC Hgb 9.5 L Hct 30.8 L MCHC 31 L RDW 19.6 H MCV 81 L MCH 25 L Lymph % (Auto) [place] % (Auto) 9.4 H [place] # Eos # Lymph # (Auto) [place] # (Auto) 1.2 H Eos # (Auto) Seg Neutrophils % 72.3 H Seg Neuts % (Manual) Baso # (Auto) Lymphocytes % (Manual) Monocytes % (Manual) Eosinophils % (Manual) Basophils % (Manual) Seg Neutrophils # 9.4 H Seg Neutrophils # Man Lymphocytes # (Manual) Monocytes # (Manual) Eosinophils # (Manual) Nucleated RBC % Basophils # (Manual) PT INR APTT Heparin Anti-Xa Level ABG pH POC ABG pO2 ABG pO2 ABG HCO3 ABG O2 Saturation ABG Base Excess POC ABG pCO2 ABG Hemoglobin ABG Oxyhemoglobin ABG Chloride ABG Glucose Oxyhemoglobin Sodium Potassium Chloride Carbon Dioxide BUN Creatinine Glucose POC Glucose 124 H 129 H Lactic Acid Calcium Phosphorus Magnesium AST ALT Lactate Dehydrogenase Total Bilirubin Direct Bilirubin CK-MB (CK-2) C-Reactive Protein NT-Pro-B Natriuret Pep Total Protein Albumin Arterial Blood Glucose Urine WBC (Auto) Urine Creatinine 02/03/20 02/03/20 02/03/20 07:04 11:32 12:49 WBC RBC Hgb Hct MCHC RDW MCV MCH Lymph % (Auto) [place] % (Auto) [place] # Eos # Lymph # (Auto) [place] # (Auto) Eos # (Auto) Seg Neutrophils % Seg Neuts % (Manual) Baso # (Auto) Lymphocytes % (Manual) Monocytes % (Manual) Eosinophils % (Manual) Basophils % (Manual) Seg Neutrophils # Seg Neutrophils # Man Lymphocytes # (Manual) Monocytes # (Manual) Eosinophils # (Manual) Nucleated RBC % Basophils # (Manual) PT INR APTT Heparin Anti-Xa Level ABG pH POC ABG pO2 ABG pO2 ABG HCO3 ABG O2 Saturation ABG Base Excess POC ABG pCO2 ABG Hemoglobin ABG Oxyhemoglobin ABG Chloride ABG Glucose Oxyhemoglobin Sodium Potassium Chloride 97.9 L Carbon Dioxide 33 H BUN 39 H Creatinine Glucose 119 H POC Glucose 138 H Lactic Acid Calcium Phosphorus Magnesium 2.60 H AST ALT Lactate Dehydrogenase Total Bilirubin Direct Bilirubin CK-MB (CK-2) C-Reactive Protein NT-Pro-B Natriuret Pep Total Protein Albumin Arterial Blood Glucose Urine WBC (Auto) Urine Creatinine 02/03/20 02/04/20 02/04/20 18:28 16:24 16:24 WBC RBC 3.38 L Hgb 8.6 L Hct 26.9 L MCHC RDW 19.5 H MCV 80 L MCH 26 L Lymph % (Auto) [place] % (Auto) [place] # Eos # Lymph # (Auto) [place] # (Auto) Eos # (Auto) Seg Neutrophils % Seg Neuts % (Manual) Baso # (Auto) Lymphocytes % (Manual) Monocytes % (Manual) Eosinophils % (Manual) Basophils % (Manual) Seg Neutrophils # Seg Neutrophils # Man Lymphocytes # (Manual) Monocytes # (Manual) Eosinophils # (Manual) Nucleated RBC % Basophils # (Manual) PT INR APTT Heparin Anti-Xa Level ABG pH POC ABG pO2 ABG pO2 ABG HCO3 ABG O2 Saturation ABG Base Excess POC ABG pCO2 ABG Hemoglobin ABG Oxyhemoglobin ABG Chloride ABG Glucose Oxyhemoglobin Sodium Potassium 3.4 L Chloride Carbon Dioxide 31 H BUN 37 H Creatinine Glucose 70 L POC Glucose 118 H Lactic Acid Calcium Phosphorus Magnesium AST 169 H ALT 394 H Lactate Dehydrogenase Total Bilirubin 1.50 H Direct Bilirubin CK-MB (CK-2) C-Reactive Protein NT-Pro-B Natriuret Pep Total Protein Albumin 2.9 L Arterial Blood Glucose Urine WBC (Auto) Urine Creatinine 02/05/20 02/05/20 02/05/20 00:41 06:37 17:14 WBC RBC Hgb Hct MCHC RDW MCV MCH Lymph % (Auto) [place] % (Auto) [place] # Eos # Lymph # (Auto) [place] # (Auto) Eos # (Auto) Seg Neutrophils % Seg Neuts % (Manual) Baso # (Auto) Lymphocytes % (Manual) Monocytes % (Manual) Eosinophils % (Manual) Basophils % (Manual) Seg Neutrophils # Seg Neutrophils # Man Lymphocytes # (Manual) Monocytes # (Manual) Eosinophils # (Manual) Nucleated RBC % Basophils # (Manual) PT INR APTT Heparin Anti-Xa Level ABG pH POC ABG pO2 ABG pO2 ABG HCO3 ABG O2 Saturation ABG Base Excess POC ABG pCO2 ABG Hemoglobin ABG Oxyhemoglobin ABG Chloride ABG Glucose Oxyhemoglobin Sodium Potassium 3.1 L Chloride Carbon Dioxide 35 H BUN 32 H Creatinine 0.7 L Glucose POC Glucose 69 L 127 H Lactic Acid Calcium Phosphorus Magnesium AST 134 H ALT 352 H Lactate Dehydrogenase Total Bilirubin 1.60 H Direct Bilirubin CK-MB (CK-2) C-Reactive Protein NT-Pro-B Natriuret Pep Total Protein Albumin 2.9 L Arterial Blood Glucose Urine WBC (Auto) Urine Creatinine 02/05/20 02/06/20 02/06/20 23:43 05:32 08:01 WBC RBC Hgb Hct MCHC RDW MCV MCH Lymph % (Auto) [place] % (Auto) [place] # Eos # Lymph # (Auto) [place] # (Auto) Eos # (Auto) Seg Neutrophils % Seg Neuts % (Manual) Baso # (Auto) Lymphocytes % (Manual) Monocytes % (Manual) Eosinophils % (Manual) Basophils % (Manual) Seg Neutrophils # Seg Neutrophils # Man Lymphocytes # (Manual) Monocytes # (Manual) Eosinophils # (Manual) Nucleated RBC % Basophils # (Manual) PT INR APTT Heparin Anti-Xa Level ABG pH POC ABG pO2 ABG pO2 ABG HCO3 ABG O2 Saturation ABG Base Excess POC ABG pCO2 ABG Hemoglobin ABG Oxyhemoglobin ABG Chloride ABG Glucose Oxyhemoglobin Sodium Potassium Chloride Carbon Dioxide BUN 40 H Creatinine Glucose 132 H POC Glucose 129 H 131 H Lactic Acid Calcium Phosphorus Magnesium AST ALT Lactate Dehydrogenase Total Bilirubin Direct Bilirubin CK-MB (CK-2) C-Reactive Protein NT-Pro-B Natriuret Pep Total Protein Albumin Arterial Blood Glucose Urine WBC (Auto) Urine Creatinine 02/06/20 02/06/20 02/06/20 11:51 16:28 17:32 WBC RBC Hgb Hct MCHC RDW MCV MCH Lymph % (Auto) [place] % (Auto) [place] # Eos # Lymph # (Auto) [place] # (Auto) Eos # (Auto) Seg Neutrophils % Seg Neuts % (Manual) Baso # (Auto) Lymphocytes % (Manual) Monocytes % (Manual) Eosinophils % (Manual) Basophils % (Manual) Seg Neutrophils # Seg Neutrophils # Man Lymphocytes # (Manual) Monocytes # (Manual) Eosinophils # (Manual) Nucleated RBC % Basophils # (Manual) PT INR APTT Heparin Anti-Xa Level ABG pH POC ABG pO2 ABG pO2 ABG HCO3 ABG O2 Saturation ABG Base Excess POC ABG pCO2 ABG Hemoglobin ABG Oxyhemoglobin ABG Chloride ABG Glucose Oxyhemoglobin Sodium Potassium Chloride Carbon Dioxide BUN Creatinine Glucose POC Glucose 167 H 129 H Lactic Acid Calcium Phosphorus Magnesium AST 824 H ALT 948 H Lactate Dehydrogenase Total Bilirubin 1.70 H Direct Bilirubin 1.2 H CK-MB (CK-2) C-Reactive Protein NT-Pro-B Natriuret Pep Total Protein Albumin 2.9 L Arterial Blood Glucose Urine WBC (Auto) Urine Creatinine 02/07/20 02/07/20 02/07/20 00:11 04:57 04:57 WBC RBC Hgb 9.2 L Hct 29.7 L MCHC 31 L RDW 20.2 H MCV 80 L MCH 25 L Lymph % (Auto) [place] % (Auto) [place] # Eos # Lymph # (Auto) [place] # (Auto) Eos # (Auto) Seg Neutrophils % Seg Neuts % (Manual) Baso # (Auto) Lymphocytes % (Manual) Monocytes % (Manual) Eosinophils % (Manual) Basophils % (Manual) Seg Neutrophils # Seg Neutrophils # Man Lymphocytes # (Manual) Monocytes # (Manual) Eosinophils # (Manual) Nucleated RBC % Basophils # (Manual) PT INR APTT Heparin Anti-Xa Level ABG pH POC ABG pO2 ABG pO2 ABG HCO3 ABG O2 Saturation ABG Base Excess POC ABG pCO2 ABG Hemoglobin ABG Oxyhemoglobin ABG Chloride ABG Glucose Oxyhemoglobin Sodium Potassium 3.4 L D Chloride Carbon Dioxide 32 H BUN 39 H Creatinine Glucose 106 H POC Glucose 121 H Lactic Acid Calcium Phosphorus Magnesium AST ALT Lactate Dehydrogenase Total Bilirubin Direct Bilirubin CK-MB (CK-2) C-Reactive Protein NT-Pro-B Natriuret Pep Total Protein Albumin Arterial Blood Glucose Urine WBC (Auto) Urine Creatinine 02/07/20 02/07/20 02/07/20 15:03 15:03 17:11 WBC RBC Hgb Hct MCHC RDW MCV MCH Lymph % (Auto) [place] % (Auto) [place] # Eos # Lymph # (Auto) [place] # (Auto) Eos # (Auto) Seg Neutrophils % Seg Neuts % (Manual) Baso # (Auto) Lymphocytes % (Manual) Monocytes % (Manual) Eosinophils % (Manual) Basophils % (Manual) Seg Neutrophils # Seg Neutrophils # Man Lymphocytes # (Manual) Monocytes # (Manual) Eosinophils # (Manual) Nucleated RBC % Basophils # (Manual) PT 27.0 H INR 2.46 H APTT Heparin Anti-Xa Level ABG pH POC ABG pO2 ABG pO2 ABG HCO3 ABG O2 Saturation ABG Base Excess POC ABG pCO2 ABG Hemoglobin ABG Oxyhemoglobin ABG Chloride ABG Glucose Oxyhemoglobin Sodium Potassium Chloride Carbon Dioxide BUN Creatinine Glucose POC Glucose 109 H Lactic Acid Calcium Phosphorus Magnesium AST 424 H ALT 796 H Lactate Dehydrogenase Total Bilirubin 1.60 H Direct Bilirubin 1.2 H CK-MB (CK-2) C-Reactive Protein NT-Pro-B Natriuret Pep Total Protein Albumin 2.9 L Arterial Blood Glucose Urine WBC (Auto) Urine Creatinine 02/08/20 02/08/20 02/08/20 12:14 17:44 19:00 WBC RBC Hgb Hct MCHC RDW MCV MCH Lymph % (Auto) [place] % (Auto) [place] # Eos # Lymph # (Auto) [place] # (Auto) Eos # (Auto) Seg Neutrophils % Seg Neuts % (Manual) Baso # (Auto) Lymphocytes % (Manual) Monocytes % (Manual) Eosinophils % (Manual) Basophils % (Manual) Seg Neutrophils # Seg Neutrophils # Man Lymphocytes # (Manual) Monocytes # (Manual) Eosinophils # (Manual) Nucleated RBC % Basophils # (Manual) PT INR APTT Heparin Anti-Xa Level ABG pH POC ABG pO2 ABG pO2 ABG HCO3 ABG O2 Saturation ABG Base Excess POC ABG pCO2 ABG Hemoglobin ABG Oxyhemoglobin ABG Chloride ABG Glucose Oxyhemoglobin Sodium Potassium Chloride Carbon Dioxide BUN Creatinine Glucose POC Glucose 111 H 107 H Lactic Acid Calcium Phosphorus Magnesium AST 309 H ALT 650 H Lactate Dehydrogenase Total Bilirubin 1.30 H Direct Bilirubin 0.9 H CK-MB (CK-2) C-Reactive Protein NT-Pro-B Natriuret Pep Total Protein 6.2 L Albumin 2.7 L Arterial Blood Glucose Urine WBC (Auto) Urine Creatinine 02/09/20 02/09/20 02/09/20 05:41 12:28 18:07 WBC RBC Hgb Hct MCHC RDW MCV MCH Lymph % (Auto) [place] % (Auto) [place] # Eos # Lymph # (Auto) [place] # (Auto) Eos # (Auto) Seg Neutrophils % Seg Neuts % (Manual) Baso # (Auto) Lymphocytes % (Manual) Monocytes % (Manual) Eosinophils % (Manual) Basophils % (Manual) Seg Neutrophils # Seg Neutrophils # Man Lymphocytes # (Manual) Monocytes # (Manual) Eosinophils # (Manual) Nucleated RBC % Basophils # (Manual) PT INR APTT Heparin Anti-Xa Level ABG pH POC ABG pO2 ABG pO2 ABG HCO3 ABG O2 Saturation ABG Base Excess POC ABG pCO2 ABG Hemoglobin ABG Oxyhemoglobin ABG Chloride ABG Glucose Oxyhemoglobin Sodium Potassium Chloride Carbon Dioxide BUN Creatinine Glucose POC Glucose 113 H 140 H 143 H Lactic Acid Calcium Phosphorus Magnesium AST ALT Lactate Dehydrogenase Total Bilirubin Direct Bilirubin CK-MB (CK-2) C-Reactive Protein NT-Pro-B Natriuret Pep Total Protein Albumin Arterial Blood Glucose Urine WBC (Auto) Urine Creatinine 02/09/20 02/09/20 02/10/20 21:40 23:45 06:00 WBC RBC Hgb Hct MCHC RDW MCV MCH Lymph % (Auto) [place] % (Auto) [place] # Eos # Lymph # (Auto) [place] # (Auto) Eos # (Auto) Seg Neutrophils % Seg Neuts % (Manual) Baso # (Auto) Lymphocytes % (Manual) Monocytes % (Manual) Eosinophils % (Manual) Basophils % (Manual) Seg Neutrophils # Seg Neutrophils # Man Lymphocytes # (Manual) Monocytes # (Manual) Eosinophils # (Manual) Nucleated RBC % Basophils # (Manual) PT INR APTT Heparin Anti-Xa Level ABG pH POC ABG pO2 ABG pO2 59.8 L ABG HCO3 33.3 H ABG O2 Saturation 88.9 L ABG Base Excess 7.4 H POC ABG pCO2 ABG Hemoglobin 10.4 L ABG Oxyhemoglobin ABG Chloride ABG Glucose Oxyhemoglobin 86.3 L Sodium Potassium Chloride Carbon Dioxide BUN Creatinine Glucose POC Glucose 127 H 114 H Lactic Acid Calcium Phosphorus Magnesium AST ALT Lactate Dehydrogenase Total Bilirubin Direct Bilirubin CK-MB (CK-2) C-Reactive Protein NT-Pro-B Natriuret Pep Total Protein Albumin Arterial Blood Glucose Urine WBC (Auto) Urine Creatinine 11/18/20 11/18/20 11/18/20 07:40 07:40 13:38 WBC 11.5 H RBC Hgb 10.6 L Hct 34.7 L MCHC 31 L RDW 19.8 H MCV 79 L MCH 24 L Lymph % (Auto) [place] % (Auto) 9.2 H [place] # Eos # Lymph # (Auto) [place] # (Auto) 1.1 H Eos # (Auto) Seg Neutrophils % Seg Neuts % (Manual) Baso # (Auto) Lymphocytes % (Manual) Monocytes % (Manual) Eosinophils % (Manual) Basophils % (Manual) Seg Neutrophils # Seg Neutrophils # Man Lymphocytes # (Manual) Monocytes # (Manual) Eosinophils # (Manual) Nucleated RBC % Basophils # (Manual) PT INR APTT Heparin Anti-Xa Level ABG pH POC ABG pO2 ABG pO2 ABG HCO3 ABG O2 Saturation ABG Base Excess POC ABG pCO2 ABG Hemoglobin ABG Oxyhemoglobin ABG Chloride ABG Glucose Oxyhemoglobin Sodium 151 H Potassium Chloride 107.2 H Carbon Dioxide 36 H BUN 25 H Creatinine 0.7 L Glucose 114 H POC Glucose 116 H Lactic Acid Calcium Phosphorus Magnesium 2.40 H AST ALT Lactate Dehydrogenase Total Bilirubin Direct Bilirubin CK-MB (CK-2) C-Reactive Protein NT-Pro-B Natriuret Pep Total Protein Albumin Arterial Blood Glucose Urine WBC (Auto) Urine Creatinine 02/10/20 02/11/20 02/11/20 17:44 05:47 12:21 WBC RBC Hgb Hct MCHC RDW MCV MCH Lymph % (Auto) [place] % (Auto) [place] # Eos # Lymph # (Auto) [place] # (Auto) Eos # (Auto) Seg Neutrophils % Seg Neuts % (Manual) Baso # (Auto) Lymphocytes % (Manual) Monocytes % (Manual) Eosinophils % (Manual) Basophils % (Manual) Seg Neutrophils # Seg Neutrophils # Man Lymphocytes # (Manual) Monocytes # (Manual) Eosinophils # (Manual) Nucleated RBC % Basophils # (Manual) PT INR APTT Heparin Anti-Xa Level ABG pH POC ABG pO2 ABG pO2 ABG HCO3 ABG O2 Saturation ABG Base Excess POC ABG pCO2 ABG Hemoglobin ABG Oxyhemoglobin ABG Chloride ABG Glucose Oxyhemoglobin Sodium Potassium Chloride Carbon Dioxide BUN Creatinine Glucose POC Glucose 139 H 173 H 143 H Lactic Acid Calcium Phosphorus Magnesium AST ALT Lactate Dehydrogenase Total Bilirubin Direct Bilirubin CK-MB (CK-2) C-Reactive Protein NT-Pro-B Natriuret Pep Total Protein Albumin Arterial Blood Glucose Urine WBC (Auto) Urine Creatinine 02/11/20 02/11/20 02/12/20 13:43 14:11 00:15 WBC RBC Hgb Hct MCHC RDW MCV MCH Lymph % (Auto) [place] % (Auto) [place] # Eos # Lymph # (Auto) [place] # (Auto) Eos # (Auto) Seg Neutrophils % Seg Neuts % (Manual) Baso # (Auto) Lymphocytes % (Manual) Monocytes % (Manual) Eosinophils % (Manual) Basophils % (Manual) Seg Neutrophils # Seg Neutrophils # Man Lymphocytes # (Manual) Monocytes # (Manual) Eosinophils # (Manual) Nucleated RBC % Basophils # (Manual) PT INR APTT Heparin Anti-Xa Level ABG pH 7.502 H POC ABG pO2 77.7 L ABG pO2 ABG HCO3 ABG O2 Saturation ABG Base Excess POC ABG pCO2 ABG Hemoglobin 11.1 L ABG Oxyhemoglobin ABG Chloride 108.0 H ABG Glucose 151 H Oxyhemoglobin Sodium Potassium Chloride Carbon Dioxide BUN Creatinine Glucose POC Glucose 130 H 125 H Lactic Acid Calcium Phosphorus Magnesium AST ALT Lactate Dehydrogenase Total Bilirubin Direct Bilirubin CK-MB (CK-2) C-Reactive Protein NT-Pro-B Natriuret Pep Total Protein Albumin Arterial Blood Glucose 151 H Urine WBC (Auto) Urine Creatinine 02/12/20 02/12/20 02/12/20 04:56 04:56 17:42 WBC RBC Hgb 9.9 L Hct 31.8 L MCHC 31 L RDW 19.4 H MCV 79 L MCH 25 L Lymph % (Auto) [place] % (Auto) 10.3 H [place] # Eos # Lymph # (Auto) [place] # (Auto) 1.0 H Eos # (Auto) Seg Neutrophils % Seg Neuts % (Manual) Baso # (Auto) Lymphocytes % (Manual) Monocytes % (Manual) Eosinophils % (Manual) Basophils % (Manual) Seg Neutrophils # Seg Neutrophils # Man Lymphocytes # (Manual) Monocytes # (Manual) Eosinophils # (Manual) Nucleated RBC % Basophils # (Manual) PT INR APTT Heparin Anti-Xa Level ABG pH POC ABG pO2 ABG pO2 ABG HCO3 ABG O2 Saturation ABG Base Excess POC ABG pCO2 ABG Hemoglobin ABG Oxyhemoglobin ABG Chloride ABG Glucose Oxyhemoglobin Sodium 149 H Potassium Chloride 108.6 H Carbon Dioxide BUN 28 H Creatinine 0.7 L Glucose 108 H POC Glucose 113 H Lactic Acid Calcium Phosphorus Magnesium AST ALT Lactate Dehydrogenase Total Bilirubin Direct Bilirubin CK-MB (CK-2) C-Reactive Protein NT-Pro-B Natriuret Pep Total Protein Albumin Arterial Blood Glucose Urine WBC (Auto) Urine Creatinine 02/13/20 02/13/20 02/13/20 00:39 05:36 12:25 WBC RBC Hgb Hct MCHC RDW MCV MCH Lymph % (Auto) [place] % (Auto) [place] # Eos # Lymph # (Auto) [place] # (Auto) Eos # (Auto) Seg Neutrophils % Seg Neuts % (Manual) Baso # (Auto) Lymphocytes % (Manual) Monocytes % (Manual) Eosinophils % (Manual) Basophils % (Manual) Seg Neutrophils # Seg Neutrophils # Man Lymphocytes # (Manual) Monocytes # (Manual) Eosinophils # (Manual) Nucleated RBC % Basophils # (Manual) PT INR APTT Heparin Anti-Xa Level ABG pH POC ABG pO2 ABG pO2 ABG HCO3 ABG O2 Saturation ABG Base Excess POC ABG pCO2 ABG Hemoglobin ABG Oxyhemoglobin ABG Chloride ABG Glucose Oxyhemoglobin Sodium Potassium Chloride Carbon Dioxide BUN Creatinine Glucose POC Glucose 129 H 126 H 129 H Lactic Acid Calcium Phosphorus Magnesium AST ALT Lactate Dehydrogenase Total Bilirubin Direct Bilirubin CK-MB (CK-2) C-Reactive Protein NT-Pro-B Natriuret Pep Total Protein Albumin Arterial Blood Glucose Urine WBC (Auto) Urine Creatinine 02/13/20 02/14/20 02/14/20 17:59 00:15 05:41 WBC RBC Hgb Hct MCHC RDW MCV MCH Lymph % (Auto) [place] % (Auto) [place] # Eos # Lymph # (Auto) [place] # (Auto) Eos # (Auto) Seg Neutrophils % Seg Neuts % (Manual) Baso # (Auto) Lymphocytes % (Manual) Monocytes % (Manual) Eosinophils % (Manual) Basophils % (Manual) Seg Neutrophils # Seg Neutrophils # Man Lymphocytes # (Manual) Monocytes # (Manual) Eosinophils # (Manual) Nucleated RBC % Basophils # (Manual) PT INR APTT Heparin Anti-Xa Level ABG pH POC ABG pO2 ABG pO2 ABG HCO3 ABG O2 Saturation ABG Base Excess POC ABG pCO2 ABG Hemoglobin ABG Oxyhemoglobin ABG Chloride ABG Glucose Oxyhemoglobin Sodium Potassium Chloride Carbon Dioxide BUN Creatinine Glucose POC Glucose 153 H 130 H 130 H Lactic Acid Calcium Phosphorus Magnesium AST ALT Lactate Dehydrogenase Total Bilirubin Direct Bilirubin CK-MB (CK-2) C-Reactive Protein NT-Pro-B Natriuret Pep Total Protein Albumin Arterial Blood Glucose Urine WBC (Auto) Urine Creatinine 02/14/20 02/15/20 02/15/20 11:32 00:12 05:27 WBC RBC Hgb Hct MCHC RDW MCV MCH Lymph % (Auto) [place] % (Auto) [place] # Eos # Lymph # (Auto) [place] # (Auto) Eos # (Auto) Seg Neutrophils % Seg Neuts % (Manual) Baso # (Auto) Lymphocytes % (Manual) Monocytes % (Manual) Eosinophils % (Manual) Basophils % (Manual) Seg Neutrophils # Seg Neutrophils # Man Lymphocytes # (Manual) Monocytes # (Manual) Eosinophils # (Manual) Nucleated RBC % Basophils # (Manual) PT INR APTT Heparin Anti-Xa Level ABG pH POC ABG pO2 ABG pO2 ABG HCO3 ABG O2 Saturation ABG Base Excess POC ABG pCO2 ABG Hemoglobin ABG Oxyhemoglobin ABG Chloride ABG Glucose Oxyhemoglobin Sodium Potassium Chloride Carbon Dioxide BUN Creatinine Glucose POC Glucose 157 H 124 H 111 H Lactic Acid Calcium Phosphorus Magnesium AST ALT Lactate Dehydrogenase Total Bilirubin Direct Bilirubin CK-MB (CK-2) C-Reactive Protein NT-Pro-B Natriuret Pep Total Protein Albumin Arterial Blood Glucose Urine WBC (Auto) Urine Creatinine 02/15/20 02/15/20 02/15/20 06:59 06:59 11:14 WBC RBC Hgb 10.4 L Hct 33.7 L MCHC 31 L RDW 19.4 H MCV 80 L MCH 24 L Lymph % (Auto) [place] % (Auto) [place] # Eos # Lymph # (Auto) [place] # (Auto) Eos # (Auto) Seg Neutrophils % Seg Neuts % (Manual) Baso # (Auto) Lymphocytes % (Manual) Monocytes % (Manual) Eosinophils % (Manual) Basophils % (Manual) 2.0 H Seg Neutrophils # Seg Neutrophils # Man Lymphocytes # (Manual) Monocytes # (Manual) Eosinophils # (Manual) Nucleated RBC % 1.0 H Basophils # (Manual) 0.2 H PT INR APTT Heparin Anti-Xa Level ABG pH POC ABG pO2 ABG pO2 ABG HCO3 ABG O2 Saturation ABG Base Excess POC ABG pCO2 ABG Hemoglobin ABG Oxyhemoglobin ABG Chloride ABG Glucose Oxyhemoglobin Sodium 149 H Potassium Chloride 108.4 H Carbon Dioxide 31 H BUN 40 H Creatinine 0.7 L Glucose 150 H POC Glucose 128 H Lactic Acid Calcium Phosphorus Magnesium AST ALT Lactate Dehydrogenase Total Bilirubin Direct Bilirubin CK-MB (CK-2) C-Reactive Protein NT-Pro-B Natriuret Pep Total Protein Albumin Arterial Blood Glucose Urine WBC (Auto) Urine Creatinine 02/15/20 02/15/20 02/16/20 17:46 23:50 05:03 WBC RBC Hgb Hct MCHC RDW MCV MCH Lymph % (Auto) [place] % (Auto) [place] # Eos # Lymph # (Auto) [place] # (Auto) Eos # (Auto) Seg Neutrophils % Seg Neuts % (Manual) Baso # (Auto) Lymphocytes % (Manual) Monocytes % (Manual) Eosinophils % (Manual) Basophils % (Manual) Seg Neutrophils # Seg Neutrophils # Man Lymphocytes # (Manual) Monocytes # (Manual) Eosinophils # (Manual) Nucleated RBC % Basophils # (Manual) PT INR APTT Heparin Anti-Xa Level ABG pH POC ABG pO2 ABG pO2 ABG HCO3 ABG O2 Saturation ABG Base Excess POC ABG pCO2 ABG Hemoglobin ABG Oxyhemoglobin ABG Chloride ABG Glucose Oxyhemoglobin Sodium Potassium Chloride Carbon Dioxide BUN Creatinine Glucose POC Glucose 154 H 135 H 148 H Lactic Acid Calcium Phosphorus Magnesium AST ALT Lactate Dehydrogenase Total Bilirubin Direct Bilirubin CK-MB (CK-2) C-Reactive Protein NT-Pro-B Natriuret Pep Total Protein Albumin Arterial Blood Glucose Urine WBC (Auto) Urine Creatinine 02/16/20 02/16/20 02/16/20 07:53 11:28 17:52 WBC RBC Hgb Hct MCHC RDW MCV MCH Lymph % (Auto) [place] % (Auto) [place] # Eos # Lymph # (Auto) [place] # (Auto) Eos # (Auto) Seg Neutrophils % Seg Neuts % (Manual) Baso # (Auto) Lymphocytes % (Manual) Monocytes % (Manual) Eosinophils % (Manual) Basophils % (Manual) Seg Neutrophils # Seg Neutrophils # Man Lymphocytes # (Manual) Monocytes # (Manual) Eosinophils # (Manual) Nucleated RBC % Basophils # (Manual) PT INR APTT Heparin Anti-Xa Level ABG pH POC ABG pO2 ABG pO2 ABG HCO3 ABG O2 Saturation ABG Base Excess POC ABG pCO2 ABG Hemoglobin ABG Oxyhemoglobin ABG Chloride ABG Glucose Oxyhemoglobin Sodium Potassium Chloride 107.9 H Carbon Dioxide BUN 38 H Creatinine 0.6 L Glucose 151 H POC Glucose 123 H 152 H Lactic Acid Calcium Phosphorus Magnesium AST ALT Lactate Dehydrogenase Total Bilirubin Direct Bilirubin CK-MB (CK-2) C-Reactive Protein NT-Pro-B Natriuret Pep Total Protein Albumin Arterial Blood Glucose Urine WBC (Auto) Urine Creatinine 02/16/20 02/17/20 02/17/20 23:49 06:24 11:36 WBC RBC Hgb Hct MCHC RDW MCV MCH Lymph % (Auto) [place] % (Auto) [place] # Eos # Lymph # (Auto) [place] # (Auto) Eos # (Auto) Seg Neutrophils % Seg Neuts % (Manual) Baso # (Auto) Lymphocytes % (Manual) Monocytes % (Manual) Eosinophils % (Manual) Basophils % (Manual) Seg Neutrophils # Seg Neutrophils # Man Lymphocytes # (Manual) Monocytes # (Manual) Eosinophils # (Manual) Nucleated RBC % Basophils # (Manual) PT INR APTT Heparin Anti-Xa Level ABG pH POC ABG pO2 ABG pO2 ABG HCO3 ABG O2 Saturation ABG Base Excess POC ABG pCO2 ABG Hemoglobin ABG Oxyhemoglobin ABG Chloride ABG Glucose Oxyhemoglobin Sodium Potassium Chloride Carbon Dioxide BUN Creatinine Glucose POC Glucose 156 H 193 H 162 H Lactic Acid Calcium Phosphorus Magnesium AST ALT Lactate Dehydrogenase Total Bilirubin Direct Bilirubin CK-MB (CK-2) C-Reactive Protein NT-Pro-B Natriuret Pep Total Protein Albumin Arterial Blood Glucose Urine WBC (Auto) Urine Creatinine 02/17/20 02/17/20 02/18/20 17:55 23:28 05:11 WBC RBC Hgb Hct MCHC RDW MCV MCH Lymph % (Auto) [place] % (Auto) [place] # Eos # Lymph # (Auto) [place] # (Auto) Eos # (Auto) Seg Neutrophils % Seg Neuts % (Manual) Baso # (Auto) Lymphocytes % (Manual) Monocytes % (Manual) Eosinophils % (Manual) Basophils % (Manual) Seg Neutrophils # Seg Neutrophils # Man Lymphocytes # (Manual) Monocytes # (Manual) Eosinophils # (Manual) Nucleated RBC % Basophils # (Manual) PT INR APTT Heparin Anti-Xa Level ABG pH POC ABG pO2 ABG pO2 ABG HCO3 ABG O2 Saturation ABG Base Excess POC ABG pCO2 ABG Hemoglobin ABG Oxyhemoglobin ABG Chloride ABG Glucose Oxyhemoglobin Sodium Potassium Chloride Carbon Dioxide BUN Creatinine Glucose POC Glucose 165 H 146 H 122 H Lactic Acid Calcium Phosphorus Magnesium AST ALT Lactate Dehydrogenase Total Bilirubin Direct Bilirubin CK-MB (CK-2) C-Reactive Protein NT-Pro-B Natriuret Pep Total Protein Albumin Arterial Blood Glucose Urine WBC (Auto) Urine Creatinine 02/18/20 02/18/20 02/19/20 12:24 17:29 00:01 WBC RBC Hgb Hct MCHC RDW MCV MCH Lymph % (Auto) [place] % (Auto) [place] # Eos # Lymph # (Auto) [place] # (Auto) Eos # (Auto) Seg Neutrophils % Seg Neuts % (Manual) Baso # (Auto) Lymphocytes % (Manual) Monocytes % (Manual) Eosinophils % (Manual) Basophils % (Manual) Seg Neutrophils # Seg Neutrophils # Man Lymphocytes # (Manual) Monocytes # (Manual) Eosinophils # (Manual) Nucleated RBC % Basophils # (Manual) PT INR APTT Heparin Anti-Xa Level ABG pH POC ABG pO2 ABG pO2 ABG HCO3 ABG O2 Saturation ABG Base Excess POC ABG pCO2 ABG Hemoglobin ABG Oxyhemoglobin ABG Chloride ABG Glucose Oxyhemoglobin Sodium Potassium Chloride Carbon Dioxide BUN Creatinine Glucose POC Glucose 162 H 136 H 145 H Lactic Acid Calcium Phosphorus Magnesium AST ALT Lactate Dehydrogenase Total Bilirubin Direct Bilirubin CK-MB (CK-2) C-Reactive Protein NT-Pro-B Natriuret Pep Total Protein Albumin Arterial Blood Glucose Urine WBC (Auto) Urine Creatinine 02/19/20 02/19/20 02/19/20 05:53 11:44 17:32 WBC RBC Hgb Hct MCHC RDW MCV MCH Lymph % (Auto) [place] % (Auto) [place] # Eos # Lymph # (Auto) [place] # (Auto) Eos # (Auto) Seg Neutrophils % Seg Neuts % (Manual) Baso # (Auto) Lymphocytes % (Manual) Monocytes % (Manual) Eosinophils % (Manual) Basophils % (Manual) Seg Neutrophils # Seg Neutrophils # Man Lymphocytes # (Manual) Monocytes # (Manual) Eosinophils # (Manual) Nucleated RBC % Basophils # (Manual) PT INR APTT Heparin Anti-Xa Level ABG pH POC ABG pO2 ABG pO2 ABG HCO3 ABG O2 Saturation ABG Base Excess POC ABG pCO2 ABG Hemoglobin ABG Oxyhemoglobin ABG Chloride ABG Glucose Oxyhemoglobin Sodium Potassium Chloride Carbon Dioxide BUN Creatinine Glucose POC Glucose 116 H 120 H 154 H Lactic Acid Calcium Phosphorus Magnesium AST ALT Lactate Dehydrogenase Total Bilirubin Direct Bilirubin CK-MB (CK-2) C-Reactive Protein NT-Pro-B Natriuret Pep Total Protein Albumin Arterial Blood Glucose Urine WBC (Auto) Urine Creatinine 02/19/20 02/20/20 02/20/20 23:43 00:24 00:24 WBC RBC Hgb 9.4 L Hct 30.0 L MCHC 31 L RDW 20.4 H MCV 79 L MCH 25 L Lymph % (Auto) [place] % (Auto) 8.5 H [place] # Eos # Lymph # (Auto) [place] # (Auto) Eos # (Auto) Seg Neutrophils % Seg Neuts % (Manual) Baso # (Auto) Lymphocytes % (Manual) Monocytes % (Manual) Eosinophils % (Manual) Basophils % (Manual) Seg Neutrophils # Seg Neutrophils # Man Lymphocytes # (Manual) Monocytes # (Manual) Eosinophils # (Manual) Nucleated RBC % Basophils # (Manual) PT INR APTT Heparin Anti-Xa Level ABG pH POC ABG pO2 ABG pO2 ABG HCO3 ABG O2 Saturation ABG Base Excess POC ABG pCO2 ABG Hemoglobin ABG Oxyhemoglobin ABG Chloride ABG Glucose Oxyhemoglobin Sodium 147 H Potassium 3.4 L Chloride Carbon Dioxide 31 H BUN 34 H Creatinine 0.5 L Glucose 135 H POC Glucose 122 H Lactic Acid Calcium Phosphorus Magnesium AST ALT Lactate Dehydrogenase Total Bilirubin Direct Bilirubin CK-MB (CK-2) C-Reactive Protein NT-Pro-B Natriuret Pep Total Protein Albumin Arterial Blood Glucose Urine WBC (Auto) Urine Creatinine 02/20/20 02/20/20 02/20/20 06:07 06:45 12:03 WBC RBC Hgb Hct MCHC RDW MCV MCH Lymph % (Auto) [place] % (Auto) [place] # Eos # Lymph # (Auto) [place] # (Auto) Eos # (Auto) Seg Neutrophils % Seg Neuts % (Manual) Baso # (Auto) Lymphocytes % (Manual) Monocytes % (Manual) Eosinophils % (Manual) Basophils % (Manual) Seg Neutrophils # Seg Neutrophils # Man Lymphocytes # (Manual) Monocytes # (Manual) Eosinophils # (Manual) Nucleated RBC % Basophils # (Manual) PT INR APTT Heparin Anti-Xa Level ABG pH 7.461 H POC ABG pO2 ABG pO2 ABG HCO3 33.3 H ABG O2 Saturation ABG Base Excess 8.4 H POC ABG pCO2 ABG Hemoglobin 10.0 L ABG Oxyhemoglobin ABG Chloride ABG Glucose Oxyhemoglobin 94.1 L Sodium Potassium Chloride Carbon Dioxide BUN Creatinine Glucose POC Glucose 109 H 128 H Lactic Acid Calcium Phosphorus Magnesium AST ALT Lactate Dehydrogenase Total Bilirubin Direct Bilirubin CK-MB (CK-2) C-Reactive Protein NT-Pro-B Natriuret Pep Total Protein Albumin Arterial Blood Glucose Urine WBC (Auto) Urine Creatinine 02/20/20 02/20/20 02/21/20 18:02 23:55 05:42 WBC RBC Hgb Hct MCHC RDW MCV MCH Lymph % (Auto) [place] % (Auto) [place] # Eos # Lymph # (Auto) [place] # (Auto) Eos # (Auto) Seg Neutrophils % Seg Neuts % (Manual) Baso # (Auto) Lymphocytes % (Manual) Monocytes % (Manual) Eosinophils % (Manual) Basophils % (Manual) Seg Neutrophils # Seg Neutrophils # Man Lymphocytes # (Manual) Monocytes # (Manual) Eosinophils # (Manual) Nucleated RBC % Basophils # (Manual) PT INR APTT Heparin Anti-Xa Level ABG pH POC ABG pO2 ABG pO2 ABG HCO3 ABG O2 Saturation ABG Base Excess POC ABG pCO2 ABG Hemoglobin ABG Oxyhemoglobin ABG Chloride ABG Glucose Oxyhemoglobin Sodium Potassium Chloride Carbon Dioxide BUN Creatinine Glucose POC Glucose 118 H 125 H 127 H Lactic Acid Calcium Phosphorus Magnesium AST ALT Lactate Dehydrogenase Total Bilirubin Direct Bilirubin CK-MB (CK-2) C-Reactive Protein NT-Pro-B Natriuret Pep Total Protein Albumin Arterial Blood Glucose Urine WBC (Auto) Urine Creatinine 02/21/20 02/21/20 02/21/20 12:10 17:35 23:40 WBC RBC Hgb Hct MCHC RDW MCV MCH Lymph % (Auto) [place] % (Auto) [place] # Eos # Lymph # (Auto) [place] # (Auto) Eos # (Auto) Seg Neutrophils % Seg Neuts % (Manual) Baso # (Auto) Lymphocytes % (Manual) Monocytes % (Manual) Eosinophils % (Manual) Basophils % (Manual) Seg Neutrophils # Seg Neutrophils # Man Lymphocytes # (Manual) Monocytes # (Manual) Eosinophils # (Manual) Nucleated RBC % Basophils # (Manual) PT INR APTT Heparin Anti-Xa Level ABG pH POC ABG pO2 ABG pO2 ABG HCO3 ABG O2 Saturation ABG Base Excess POC ABG pCO2 ABG Hemoglobin ABG Oxyhemoglobin ABG Chloride ABG Glucose Oxyhemoglobin Sodium Potassium Chloride Carbon Dioxide BUN Creatinine Glucose POC Glucose 128 H 113 H 125 H Lactic Acid Calcium Phosphorus Magnesium AST ALT Lactate Dehydrogenase Total Bilirubin Direct Bilirubin CK-MB (CK-2) C-Reactive Protein NT-Pro-B Natriuret Pep Total Protein Albumin Arterial Blood Glucose Urine WBC (Auto) Urine Creatinine 02/22/20 02/22/20 02/22/20 05:57 08:06 08:06 WBC RBC Hgb 10.8 L Hct 35.2 L MCHC 31 L RDW 21.8 H MCV 80 L MCH 25 L Lymph % (Auto) [place] % (Auto) [place] # Eos # Lymph # (Auto) [place] # (Auto) Eos # (Auto) Seg Neutrophils % 71.5 H Seg Neuts % (Manual) Baso # (Auto) Lymphocytes % (Manual) Monocytes % (Manual) Eosinophils % (Manual) Basophils % (Manual) Seg Neutrophils # Seg Neutrophils # Man Lymphocytes # (Manual) Monocytes # (Manual) Eosinophils # (Manual) Nucleated RBC % Basophils # (Manual) PT INR APTT Heparin Anti-Xa Level ABG pH POC ABG pO2 ABG pO2 ABG HCO3 ABG O2 Saturation ABG Base Excess POC ABG pCO2 ABG Hemoglobin ABG Oxyhemoglobin ABG Chloride ABG Glucose Oxyhemoglobin Sodium 146 H Potassium Chloride Carbon Dioxide 34 H BUN 21 H Creatinine 0.4 L Glucose 149 H POC Glucose 138 H Lactic Acid Calcium Phosphorus Magnesium AST ALT Lactate Dehydrogenase Total Bilirubin Direct Bilirubin CK-MB (CK-2) C-Reactive Protein NT-Pro-B Natriuret Pep Total Protein Albumin Arterial Blood Glucose Urine WBC (Auto) Urine Creatinine 02/22/20 02/22/20 02/22/20 11:47 17:11 23:25 WBC RBC Hgb Hct MCHC RDW MCV MCH Lymph % (Auto) [place] % (Auto) [place] # Eos # Lymph # (Auto) [place] # (Auto) Eos # (Auto) Seg Neutrophils % Seg Neuts % (Manual) Baso # (Auto) Lymphocytes % (Manual) Monocytes % (Manual) Eosinophils % (Manual) Basophils % (Manual) Seg Neutrophils # Seg Neutrophils # Man Lymphocytes # (Manual) Monocytes # (Manual) Eosinophils # (Manual) Nucleated RBC % Basophils # (Manual) PT INR APTT Heparin Anti-Xa Level ABG pH POC ABG pO2 ABG pO2 ABG HCO3 ABG O2 Saturation ABG Base Excess POC ABG pCO2 ABG Hemoglobin ABG Oxyhemoglobin ABG Chloride ABG Glucose Oxyhemoglobin Sodium Potassium Chloride Carbon Dioxide BUN Creatinine Glucose POC Glucose 149 H 144 H 142 H Lactic Acid Calcium Phosphorus Magnesium AST ALT Lactate Dehydrogenase Total Bilirubin Direct Bilirubin CK-MB (CK-2) C-Reactive Protein NT-Pro-B Natriuret Pep Total Protein Albumin Arterial Blood Glucose Urine WBC (Auto) Urine Creatinine 02/23/20 02/23/20 02/23/20 05:22 11:37 18:14 WBC RBC Hgb Hct MCHC RDW MCV MCH Lymph % (Auto) [place] % (Auto) [place] # Eos # Lymph # (Auto) [place] # (Auto) Eos # (Auto) Seg Neutrophils % Seg Neuts % (Manual) Baso # (Auto) Lymphocytes % (Manual) Monocytes % (Manual) Eosinophils % (Manual) Basophils % (Manual) Seg Neutrophils # Seg Neutrophils # Man Lymphocytes # (Manual) Monocytes # (Manual) Eosinophils # (Manual) Nucleated RBC % Basophils # (Manual) PT INR APTT Heparin Anti-Xa Level ABG pH POC ABG pO2 ABG pO2 ABG HCO3 ABG O2 Saturation ABG Base Excess POC ABG pCO2 ABG Hemoglobin ABG Oxyhemoglobin ABG Chloride ABG Glucose Oxyhemoglobin Sodium Potassium Chloride Carbon Dioxide BUN Creatinine Glucose POC Glucose 144 H 113 H 127 H Lactic Acid Calcium Phosphorus Magnesium AST ALT Lactate Dehydrogenase Total Bilirubin Direct Bilirubin CK-MB (CK-2) C-Reactive Protein NT-Pro-B Natriuret Pep Total Protein Albumin Arterial Blood Glucose Urine WBC (Auto) Urine Creatinine 02/23/20 02/24/20 02/24/20 23:45 05:50 11:24 WBC RBC Hgb Hct MCHC RDW MCV MCH Lymph % (Auto) [place] % (Auto) [place] # Eos # Lymph # (Auto) [place] # (Auto) Eos # (Auto) Seg Neutrophils % Seg Neuts % (Manual) Baso # (Auto) Lymphocytes % (Manual) Monocytes % (Manual) Eosinophils % (Manual) Basophils % (Manual) Seg Neutrophils # Seg Neutrophils # Man Lymphocytes # (Manual) Monocytes # (Manual) Eosinophils # (Manual) Nucleated RBC % Basophils # (Manual) PT INR APTT Heparin Anti-Xa Level ABG pH POC ABG pO2 ABG pO2 ABG HCO3 ABG O2 Saturation ABG Base Excess POC ABG pCO2 ABG Hemoglobin ABG Oxyhemoglobin ABG Chloride ABG Glucose Oxyhemoglobin Sodium Potassium Chloride Carbon Dioxide BUN Creatinine Glucose POC Glucose 123 H 117 H 126 H Lactic Acid Calcium Phosphorus Magnesium AST ALT Lactate Dehydrogenase Total Bilirubin Direct Bilirubin CK-MB (CK-2) C-Reactive Protein NT-Pro-B Natriuret Pep Total Protein Albumin Arterial Blood Glucose Urine WBC (Auto) Urine Creatinine 02/24/20 02/24/20 02/25/20 18:35 23:27 05:20 WBC RBC Hgb Hct MCHC RDW MCV MCH Lymph % (Auto) [place] % (Auto) [place] # Eos # Lymph # (Auto) [place] # (Auto) Eos # (Auto) Seg Neutrophils % Seg Neuts % (Manual) Baso # (Auto) Lymphocytes % (Manual) Monocytes % (Manual) Eosinophils % (Manual) Basophils % (Manual) Seg Neutrophils # Seg Neutrophils # Man Lymphocytes # (Manual) Monocytes # (Manual) Eosinophils # (Manual) Nucleated RBC % Basophils # (Manual) PT INR APTT Heparin Anti-Xa Level ABG pH POC ABG pO2 ABG pO2 ABG HCO3 ABG O2 Saturation ABG Base Excess POC ABG pCO2 ABG Hemoglobin ABG Oxyhemoglobin ABG Chloride ABG Glucose Oxyhemoglobin Sodium Potassium Chloride Carbon Dioxide BUN Creatinine Glucose POC Glucose 121 H 127 H 133 H Lactic Acid Calcium Phosphorus Magnesium AST ALT Lactate Dehydrogenase Total Bilirubin Direct Bilirubin CK-MB (CK-2) C-Reactive Protein NT-Pro-B Natriuret Pep Total Protein Albumin Arterial Blood Glucose Urine WBC (Auto) Urine Creatinine 02/25/20 02/25/20 02/25/20 12:08 17:26 23:33 WBC RBC Hgb Hct MCHC RDW MCV MCH Lymph % (Auto) [place] % (Auto) [place] # Eos # Lymph # (Auto) [place] # (Auto) Eos # (Auto) Seg Neutrophils % Seg Neuts % (Manual) Baso # (Auto) Lymphocytes % (Manual) Monocytes % (Manual) Eosinophils % (Manual) Basophils % (Manual) Seg Neutrophils # Seg Neutrophils # Man Lymphocytes # (Manual) Monocytes # (Manual) Eosinophils # (Manual) Nucleated RBC % Basophils # (Manual) PT INR APTT Heparin Anti-Xa Level ABG pH POC ABG pO2 ABG pO2 ABG HCO3 ABG O2 Saturation ABG Base Excess POC ABG pCO2 ABG Hemoglobin ABG Oxyhemoglobin ABG Chloride ABG Glucose Oxyhemoglobin Sodium Potassium Chloride Carbon Dioxide BUN Creatinine Glucose POC Glucose 109 H 120 H 120 H Lactic Acid Calcium Phosphorus Magnesium AST ALT Lactate Dehydrogenase Total Bilirubin Direct Bilirubin CK-MB (CK-2) C-Reactive Protein NT-Pro-B Natriuret Pep Total Protein Albumin Arterial Blood Glucose Urine WBC (Auto) Urine Creatinine 02/26/20 02/26/20 02/27/20 05:33 07:50 12:13 WBC RBC Hgb Hct MCHC RDW MCV MCH Lymph % (Auto) [place] % (Auto) [place] # Eos # Lymph # (Auto) [place] # (Auto) Eos # (Auto) Seg Neutrophils % Seg Neuts % (Manual) Baso # (Auto) Lymphocytes % (Manual) Monocytes % (Manual) Eosinophils % (Manual) Basophils % (Manual) Seg Neutrophils # Seg Neutrophils # Man Lymphocytes # (Manual) Monocytes # (Manual) Eosinophils # (Manual) Nucleated RBC % Basophils # (Manual) PT INR APTT Heparin Anti-Xa Level ABG pH POC ABG pO2 ABG pO2 ABG HCO3 ABG O2 Saturation ABG Base Excess POC ABG pCO2 ABG Hemoglobin ABG Oxyhemoglobin ABG Chloride ABG Glucose Oxyhemoglobin Sodium Potassium Chloride Carbon Dioxide BUN Creatinine Glucose POC Glucose 106 H 130 H Lactic Acid Calcium Phosphorus Magnesium AST ALT Lactate Dehydrogenase Total Bilirubin Direct Bilirubin CK-MB (CK-2) C-Reactive Protein NT-Pro-B Natriuret Pep Total Protein Albumin Arterial Blood Glucose Urine WBC (Auto) > 182.0 H Urine Creatinine 02/27/20 02/27/20 02/28/20 18:20 23:33 05:01 WBC RBC Hgb Hct MCHC RDW MCV MCH Lymph % (Auto) [place] % (Auto) [place] # Eos # Lymph # (Auto) [place] # (Auto) Eos # (Auto) Seg Neutrophils % Seg Neuts % (Manual) Baso # (Auto) Lymphocytes % (Manual) Monocytes % (Manual) Eosinophils % (Manual) Basophils % (Manual) Seg Neutrophils # Seg Neutrophils # Man Lymphocytes # (Manual) Monocytes # (Manual) Eosinophils # (Manual) Nucleated RBC % Basophils # (Manual) PT INR APTT Heparin Anti-Xa Level ABG pH POC ABG pO2 ABG pO2 ABG HCO3 ABG O2 Saturation ABG Base Excess POC ABG pCO2 ABG Hemoglobin ABG Oxyhemoglobin ABG Chloride ABG Glucose Oxyhemoglobin Sodium Potassium Chloride Carbon Dioxide BUN Creatinine Glucose POC Glucose 109 H 124 H 134 H Lactic Acid Calcium Phosphorus Magnesium AST ALT Lactate Dehydrogenase Total Bilirubin Direct Bilirubin CK-MB (CK-2) C-Reactive Protein NT-Pro-B Natriuret Pep Total Protein Albumin Arterial Blood Glucose Urine WBC (Auto) Urine Creatinine 02/28/20 02/28/20 02/28/20 11:54 18:16 23:03 WBC RBC Hgb Hct MCHC RDW MCV MCH Lymph % (Auto) [place] % (Auto) [place] # Eos # Lymph # (Auto) [place] # (Auto) Eos # (Auto) Seg Neutrophils % Seg Neuts % (Manual) Baso # (Auto) Lymphocytes % (Manual) Monocytes % (Manual) Eosinophils % (Manual) Basophils % (Manual) Seg Neutrophils # Seg Neutrophils # Man Lymphocytes # (Manual) Monocytes # (Manual) Eosinophils # (Manual) Nucleated RBC % Basophils # (Manual) PT INR APTT Heparin Anti-Xa Level ABG pH POC ABG pO2 ABG pO2 ABG HCO3 ABG O2 Saturation ABG Base Excess POC ABG pCO2 ABG Hemoglobin ABG Oxyhemoglobin ABG Chloride ABG Glucose Oxyhemoglobin Sodium Potassium Chloride Carbon Dioxide BUN Creatinine Glucose POC Glucose 133 H 134 H 146 H Lactic Acid Calcium Phosphorus Magnesium AST ALT Lactate Dehydrogenase Total Bilirubin Direct Bilirubin CK-MB (CK-2) C-Reactive Protein NT-Pro-B Natriuret Pep Total Protein Albumin Arterial Blood Glucose Urine WBC (Auto) Urine Creatinine 02/29/20 02/29/20 02/29/20 05:24 11:34 17:12 WBC RBC Hgb Hct MCHC RDW MCV MCH Lymph % (Auto) [place] % (Auto) [place] # Eos # Lymph # (Auto) [place] # (Auto) Eos # (Auto) Seg Neutrophils % Seg Neuts % (Manual) Baso # (Auto) Lymphocytes % (Manual) Monocytes % (Manual) Eosinophils % (Manual) Basophils % (Manual) Seg Neutrophils # Seg Neutrophils # Man Lymphocytes # (Manual) Monocytes # (Manual) Eosinophils # (Manual) Nucleated RBC % Basophils # (Manual) PT INR APTT Heparin Anti-Xa Level ABG pH POC ABG pO2 ABG pO2 ABG HCO3 ABG O2 Saturation ABG Base Excess POC ABG pCO2 ABG Hemoglobin ABG Oxyhemoglobin ABG Chloride ABG Glucose Oxyhemoglobin Sodium Potassium Chloride Carbon Dioxide BUN Creatinine Glucose POC Glucose 139 H 141 H 157 H Lactic Acid Calcium Phosphorus Magnesium AST ALT Lactate Dehydrogenase Total Bilirubin Direct Bilirubin CK-MB (CK-2) C-Reactive Protein NT-Pro-B Natriuret Pep Total Protein Albumin Arterial Blood Glucose Urine WBC (Auto) Urine Creatinine 02/29/20 03/01/20 03/01/20 23:35 06:00 11:53 WBC RBC Hgb Hct MCHC RDW MCV MCH Lymph % (Auto) [place] % (Auto) [place] # Eos # Lymph # (Auto) [place] # (Auto) Eos # (Auto) Seg Neutrophils % Seg Neuts % (Manual) Baso # (Auto) Lymphocytes % (Manual) Monocytes % (Manual) Eosinophils % (Manual) Basophils % (Manual) Seg Neutrophils # Seg Neutrophils # Man Lymphocytes # (Manual) Monocytes # (Manual) Eosinophils # (Manual) Nucleated RBC % Basophils # (Manual) PT INR APTT Heparin Anti-Xa Level ABG pH POC ABG pO2 ABG pO2 ABG HCO3 ABG O2 Saturation ABG Base Excess POC ABG pCO2 ABG Hemoglobin ABG Oxyhemoglobin ABG Chloride ABG Glucose Oxyhemoglobin Sodium Potassium Chloride Carbon Dioxide BUN Creatinine Glucose POC Glucose 120 H 132 H 136 H Lactic Acid Calcium Phosphorus Magnesium AST ALT Lactate Dehydrogenase Total Bilirubin Direct Bilirubin CK-MB (CK-2) C-Reactive Protein NT-Pro-B Natriuret Pep Total Protein Albumin Arterial Blood Glucose Urine WBC (Auto) Urine Creatinine 03/01/20 03/01/20 03/02/20 17:36 23:16 05:12 WBC RBC Hgb Hct MCHC RDW MCV MCH Lymph % (Auto) [place] % (Auto) [place] # Eos # Lymph # (Auto) [place] # (Auto) Eos # (Auto) Seg Neutrophils % Seg Neuts % (Manual) Baso # (Auto) Lymphocytes % (Manual) Monocytes % (Manual) Eosinophils % (Manual) Basophils % (Manual) Seg Neutrophils # Seg Neutrophils # Man Lymphocytes # (Manual) Monocytes # (Manual) Eosinophils # (Manual) Nucleated RBC % Basophils # (Manual) PT INR APTT Heparin Anti-Xa Level ABG pH POC ABG pO2 ABG pO2 ABG HCO3 ABG O2 Saturation ABG Base Excess POC ABG pCO2 ABG Hemoglobin ABG Oxyhemoglobin ABG Chloride ABG Glucose Oxyhemoglobin Sodium Potassium Chloride Carbon Dioxide BUN Creatinine Glucose POC Glucose 171 H 164 H 176 H Lactic Acid Calcium Phosphorus Magnesium AST ALT Lactate Dehydrogenase Total Bilirubin Direct Bilirubin CK-MB (CK-2) C-Reactive Protein NT-Pro-B Natriuret Pep Total Protein Albumin Arterial Blood Glucose Urine WBC (Auto) Urine Creatinine 03/02/20 03/02/20 03/03/20 11:42 18:01 00:06 WBC RBC Hgb Hct MCHC RDW MCV MCH Lymph % (Auto) [place] % (Auto) [place] # Eos # Lymph # (Auto) [place] # (Auto) Eos # (Auto) Seg Neutrophils % Seg Neuts % (Manual) Baso # (Auto) Lymphocytes % (Manual) Monocytes % (Manual) Eosinophils % (Manual) Basophils % (Manual) Seg Neutrophils # Seg Neutrophils # Man Lymphocytes # (Manual) Monocytes # (Manual) Eosinophils # (Manual) Nucleated RBC % Basophils # (Manual) PT INR APTT Heparin Anti-Xa Level ABG pH POC ABG pO2 ABG pO2 ABG HCO3 ABG O2 Saturation ABG Base Excess POC ABG pCO2 ABG Hemoglobin ABG Oxyhemoglobin ABG Chloride ABG Glucose Oxyhemoglobin Sodium Potassium Chloride Carbon Dioxide BUN Creatinine Glucose POC Glucose 150 H 156 H 156 H Lactic Acid Calcium Phosphorus Magnesium AST ALT Lactate Dehydrogenase Total Bilirubin Direct Bilirubin CK-MB (CK-2) C-Reactive Protein NT-Pro-B Natriuret Pep Total Protein Albumin Arterial Blood Glucose Urine WBC (Auto) Urine Creatinine 03/03/20 03/03/20 03/03/20 03:31 11:20 16:55 WBC RBC Hgb Hct MCHC RDW MCV MCH Lymph % (Auto) [place] % (Auto) [place] # Eos # Lymph # (Auto) [place] # (Auto) Eos # (Auto) Seg Neutrophils % Seg Neuts % (Manual) Baso # (Auto) Lymphocytes % (Manual) Monocytes % (Manual) Eosinophils % (Manual) Basophils % (Manual) Seg Neutrophils # Seg Neutrophils # Man Lymphocytes # (Manual) Monocytes # (Manual) Eosinophils # (Manual) Nucleated RBC % Basophils # (Manual) PT INR APTT Heparin Anti-Xa Level ABG pH POC ABG pO2 ABG pO2 ABG HCO3 ABG O2 Saturation ABG Base Excess POC ABG pCO2 ABG Hemoglobin ABG Oxyhemoglobin ABG Chloride ABG Glucose Oxyhemoglobin Sodium Potassium Chloride Carbon Dioxide BUN Creatinine Glucose POC Glucose 164 H 125 H 211 H Lactic Acid Calcium Phosphorus Magnesium AST ALT Lactate Dehydrogenase Total Bilirubin Direct Bilirubin CK-MB (CK-2) C-Reactive Protein NT-Pro-B Natriuret Pep Total Protein Albumin Arterial Blood Glucose Urine WBC (Auto) Urine Creatinine Allied health notes reviewed: RT
[2020-03-03] MEDS: TAMSULOSIN 0.4 MG CAP PO SCH (21:34)
[2020-03-03] MEDS: POLYETHYLENE GLYCOL 3350 17 GM POWDER PO SCH (21:37)
[2020-03-04] MEDS: INSULIN REGULAR, HUMAN 100 UNIT/ML 3ML VIAL SUB-Q SCH ×5 (00:41→23:20)
[2020-03-04] MEDS: MIDODRINE 5 MG TAB PO SCH ×3 (09:12→15:28)
[2020-03-04] MEDS: APIXABAN 5 MG TAB PO SCH ×2 (09:12→22:51)
[2020-03-04] MEDS: DOCUSATE SODIUM 100 MG/10 ML ORAL LIQD FEEDTUBE SCH ×2 (09:12→22:51)
[2020-03-04] MEDS: GLYCOPYRROLATE 2 MG TAB PO SCH ×3 (09:12→22:51)
[2020-03-04] MEDS: METOPROLOL TARTRATE 25 MG TAB FEEDTUBE SCH ×2 (09:14→22:52)
[2020-03-04] MEDS: LANSOPRAZOLE 30 MG SOLUTAB FEEDTUBE SCH (09:14)
[2020-03-04] MEDS: QUEtiapine 100 MG TAB PO SCH ×2 (09:14→22:49)
[2020-03-04] MEDS: CLOPIDOGREL 75 MG TAB PO SCH (09:14)
--- NOTE | 2020-03-04 09:36 | Progress Note ---
Assessment and Plan Assessment and plan: --Ischemic cardiomyopathy Cardiology is following, status post cardiac catheterization on 01/22/2020; Cor onary artery disease status post PCI and stent to the LAD Continue current cardiac medications --Acute on chronic hypoxemic respiratory failure; Patient has tracheostomy on vent Continue nebulizers, , trach care Wean off ventilator as tolerated Pulmonary critical following --Acute exacerbation of COPD; Patient is currently on ventilatory support Continue nebulizers --Left lower lobe PE; Continue Eliquis, ventilatory support --Acute right lower extremity DVT; Patient is on Eliquis --Bilateral multifocal pneumonia/community-acquired Completed antibiotics, improved --Severe sepsis/bilateral pneumonia: Completed antibiotics COVID-19 test; 11/24/2019; negative 11/26/2019; negative 12/29/2019: Negative --Paroxysmal atrial fibrillation; Now rate controlled, Stable on amiodarone and Eliquis --Acute on chronic combined systolic and diastolic congestive heart failure Ischemic cardiomyopathy left ventricular ejection fraction 40 to 45% --H/o CAD [[facility] 12/2018 in-stent restenosis] Patient is stable on current cardiac medications --Hypertensive emergency; present on admission Reasonable blood pressures, continue current antihypertensives As needed medications --History of alcohol abuse/alcohol withdrawal; Was on CIWA protocol, now stable --Oropharyngeal dysphagia; status post PEG placement Continue PEG feeds per protocol --History of partial small bowel obstruction; resolved --Obesity; BMI 34.7 Patient needs weight reduction when medically stable --Severe protein calorie malnutrition/hypoalbuminemia Nutrition supplements, dietitian following, PEG feeds --DVT prophylaxis;Eliquis --Full CODE STATUS Discharge planning 01/05; Pt stable. NGT output 650cc over 24 hours, bilious. No f/c, WBC within normal limits. cont NG suction and cont to hold TF 01/06: Abs series - mild improvement in small bowel distension in mid abdomen, normal gas/stool pattern in colon. NGT in duodenum. Continue to hold tube feeding, maintain NG tube with low intermittent suction. Patient's was updated by phone. Continue to provide supportive care and monitor clinically. 01/07: +BMs today and NGT/PEG output appears more gastric today. Plan to clamp NGT, if tolerates start TF from tomorrow. cont supportive care. 01/08; Gastric output decreased over last 24 hours. NGT has been clamped x 24 hours. plan to dc NGT and to start TTF via PEG - vital HF @10cc/hr 01/09: clinically stable, tolerating TF. monitor BMP, wean off from vent as tolerated clinically stable, on TF. wean off vent as tolerated 01/11: wean off from vent, cont to monitor, on TF 01/12: wean off from vent, cont to monitor, on TF. need placement - unfunded 01/13; remains on ventilatory support, unable to wean, DC planning possible LTAC, unfunded 01/14; patient of ventilatory support, T-piece tracheostomy on oxygen, LTAC placement per case management 01/16; tracheostomy, patient on full ventilatory support, wean off vent support as tolerated, pending LTAC placement, social financial issues 01/17; awaiting LTAC placement, insurance and financial issues 01/18; patient tracheostomy remains on ventilatory support 01/19; wean off ventilator as tolerated 01/20; remains on ventilatory support, patient complains of intermittent chest pain, cardiology recommend left heart catheterization tomorrow 01/22/2020. Patient for left heart catheterization per cardiology. Patient remains on AC mode ventilation rate 12, tidal volume 450, FiO2 30% and PEEP of 6. Continue tracheostomy care, airway management and secretion control. 01/23/2020. Cardiac catheterization completed yesterday revealed widely patent previous LAD stent with mild nonobstructive atherosclerosis of the right mid coronary artery and rest of the coronary system was without significant atherosclerosis. The left ventricle ejection fraction was mildly impaired at 40 to 45%. There was some hypokinesis of the basal inferior wall suggestive of previous or recent infarct. Continue GDMT for coronary artery disease including beta blockers, topical nitrates, statin and Plavix. Continue Eliquis for paroxysmal atrial fibrillation and PE. Continue diuresis with Lasix and follow electrolytes closely. Continue Robinul and scopolamine for secretion control and daily SBT per pulmonary. Also, continue bronchodilators and routine trach care/airway management. T-piece trials per pulmonary as tolerated. 01/24/2020. Recent cardiac catheterization has documented widely patent left anterior descending artery stent with minimal nonobstructive diffuse coronary artery disease in the rest of the coronary arteries. Evidence of ischemic cardiomyopathy with inferior wall hypokinesis. Continue with guideline directed medical therapy. Continue Robinul and scopolamine for secretion control and daily SBT per pulmonary. Continue bronchodilators and routine trach care/airway management. T-piece trials per pulmonary as tolerated. 01/25/2020. Continue with guideline directed medical therapy for systolic heart failure. Cardiac catheterization revealed evidence of ischemic cardiomyopathy with inferior wall hypokinesis (EF 40-45%). Patient currently on T-piece with oxygen 10 L/min FiO2 40%. Continue Robinul and scopolamine for secretion c ontrol. Continue bronchodilators and routine trach care/airway management. 02/03: Mental status more improved, agree with Reglan will change to IV scheduled for two days, no new vomiting. Pseudomonas A in Sputum. 02/04: Clinical improving, amiodarone discontinued due to LFTs, continue Metoprolol.d/w GI, started on Golytely to clear impaction. Started on dialy Miralax. 02/05: Continue supportive care. Noted bowel movement, continue bowel regimen 02/06: Cardiology input noted beta-hebert increased for better suppression of atrial fibrillation. Continue to monitor, no other evidence of nausea vomiting noted. Discussed with respiratory therapist will be continued on weaning protocol with pressure support today. 02/07: Patient successfully weaned off the ventilator, No new complaints, co ntinue monitoring, BM noted, Discussed with pulmonary, 02/08; tracheostomy on T-piece, patient is more alert and awake today 02/09; clinically no change, tracheostomy on vent 02/10; tracheostomy on vent, full CODE STATUS, poor prognosis, 02/11; clinically no change, remains on ventilatory support, full CODE STATUS, discussed with spouse Ms. Paulette Araiza extensively today 02/12. Patient resting comfortably no change on vent with tracheostomy. Still unable to wean. Some increased crackles today. 02/13: Still unable to wean from the vent. Overall prognosis remains extremely poor. 02/14; remains critically ill, tracheostomy on vent, unable to wean, poor prognosis, full CODE STATUS 02/15; patient is more alert and awake today, chronic tracheostomy on T-piece, continue current management DC planning per case management. Disposition very difficult due to lack of resources and insurance 02/17/2020. Patient remains on mechanical ventilation and tolerating PSV trials. Patient currently with PSV 10/6 at FiO2 of 30%. 02/18/2020. Patient currently on PSV 10/6 with FiO2 of 40%. 40% T-piece trial was attempted but patient unable to tolerate due to saturations dropping into the 80s and heart rate in the 140s. Therefore, patient placed back on PSV. Continue anticoagulation with Eliquis. Continue secretion control with Robinul and scopolamine. Continue rate control with metoprolol and digoxin. 02/19/2020. Patient currently on PSV 10/6 with FiO2 of 30%. T-piece trial attempted yesterday but patient did not tolerate. Continue T-piece trials as tolerated. Continue anticoagulation with Eliquis. Continue secretion control with Robinul and scopolamine. Continue rate control with metoprolol and digoxin. Continue to follow with case management with regards to discharge kyrie nning. 02/20/2020. Patient continues to tolerate PSV 10/6. Continue rate control with metoprolol and digoxin. Amiodarone discontinued due to elevated liver transaminases. Eliquis for anticoagulation acute PE/DVT. 02/21/2020. Patient continues to tolerate PSV 10/6 at FiO2 of 30%. Continue rate control with metoprolol and digoxin. Amiodarone discontinued due to elevated liver transaminases. Eliquis for anticoagulation acute PE/DVT. 02/22/2020. Patient continues to tolerate PSV 10/6 at FiO2 of 30%. Continue rate control with metoprolol and digoxin. Amiodarone discontinued due to kasia vated liver transaminases. Eliquis for anticoagulation acute PE/DVT. 02/22. Awake and alert on vent. Vitals stable. 02/23. Awake and alert on vent. Requests for ice. Vitals stable 02/24. Trach to vent. Continue rate control with metoprolol and digoxin. Amiodarone discontinued due to elevated liver transaminases. Eliquis for anticoagulation of acute PE/DVT. Transferred to [facility] 02/25. Seen in [facility]. Requests for ice. RN to provide a cube of ice. Vitals stable. 02/26. No change in medical condition. Slightly tachy this AM. Will monitor. 02/27. Cardiology started him on a beta hebert. Still on vent 02/28. Discharge planning as per sweep press operator. Still on vent. Tachycardia noted. 03/01/2020; patient is tachycardic, still on the vent. Discharge management as per sweep press operator. 03/02/2020; patient is on a vent and trach. Discharge is per sweep press operator. 03/03/2012; patient is on vent and trach patient is alert and oriented. 03/04/2020; and is on vent and trach, patient is alert. Discharge is per pulmonary. The high probability of a clinically significant, sudden or life threatening de terioration of the [Respiratory, cardiovascular & neurological] system(s) required my full and dire ct attention, intervention and personal management. The aggregate critical care time was [32] minutes without overlap. Time includes spent on [x] Data Review and interpretation [x] Patient assessment and monitoring of vital signs [x] Documentation [x] Medication orders and management History Interval history: Patient was seen and evaluated this morning Patient trach and intubated Hospitalist Physical - Physical exam Narrative exam: Patient is on trach Patient is obese Vital signs as documented. Head exam is unremarkable. No scleral icterus . Neck is without jugular venous distension, thyromegaly, or carotid bruits. Lungs intubated and on mechanical ventilator Cardiac exam reveals regular rate and Rhythm. Abdominal exam reveals normal bowel sounds, nontender, no organomegaly. Extremities are nonedematous and both femoral and pedal pulses are normal. 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 - Constitutional Vitals: Temp Pulse Resp BP Pulse Ox 98.2 F 122 H 21 111/76 97 03/04/20 04:00 03/04/20 09:14 03/04/20 08:00 03/04/20 09:14 03/04/20 08:00 General appearance: Present: no acute distress, well-nourished, obese, other (Tracheostomy responds to simple questions appropriately) HEART Score - HEART Score Troponin: Troponin T < 0.010 ng/mL (0.00-0.029) 01/19/20 01:35 Results - Labs CBC & Chem 7: 02/22/20 08:06 02/22/20 08:06 Labs: Laboratory Last Values WBC 9.2 K/mm3 (4.5-11.0) 02/22/20 08:06 RBC 4.42 M/mm3 (3.65-5.03) 02/22/20 08:06 Hgb 10.8 gm/dl (11.8-15.2) L 02/22/20 08:06 Hct 35.2 % (35.5-45.6) L 02/22/20 08:06 MCV 80 fl (84-94) L 02/22/20 08:06 MCH 25 pg (28-32) L 02/22/20 08:06 MCHC 31 % (32-34) L 02/22/20 08:06 RDW 21.8 % (13.2-15.2) H 02/22/20 08:06 Plt Count 216 K/mm3 (140-440) 02/22/20 08:06 Lymph % (Auto) 19.0 % (13.4-35.0) 02/22/20 08:06 [place]ardo % (Auto) 6.5 % (0.0-7.3) 02/22/20 08:06 Eos % (Auto) 2.1 % (0.0-4.3) 02/22/20 08:06 Baso % (Auto) 0.9 % (0.0-1.8) 02/22/20 08:06 Lymph # (Auto) 1.8 K/mm3 (1.2-5.4) 02/22/20 08:06 F[place]ardo # (Auto) 0.6 K/mm3 (0.0-0.8) 02/22/20 08:06 Eos # (Auto) 0.2 K/mm3 (0.0-0.4) 02/22/20 08:06 Baso # (Auto) 0.1 K/mm3 (0.0-0.1) 02/22/20 08:06 Add Manual Diff Complete 02/15/20 06:59 Total Counted 100 02/15/20 06:59 Seg Neutrophils % 71.5 % (40.0-70.0) H 02/22/20 08:06 Seg Neuts % (Manual) 58.0 % (40.0-70.0) 02/15/20 06:59 Band Neutrophils % 0 % 02/15/20 06:59 Lymphocytes % (Manual) 34.0 % (13.4-35.0) 02/15/20 06:59 Reactive Lymphs % (Man) 1.0 % 02/15/20 06:59 Monocytes % (Manual) 4.0 % (0.0-7.3) 02/15/20 06:59 Eosinophils % (Manual) 0 % (0.0-4.3) 02/15/20 06:59 Basophils % (Manual) 2.0 % (0.0-1.8) H 02/15/20 06:59 Metamyelocytes % 1.0 % 02/15/20 06:59 Myelocytes % 0 % 02/15/20 06:59 Promyelocytes % 0 % 02/15/20 06:59 Blast Cells % 0 % 02/15/20 06:59 Nucleated RBC % 1.0 % (0.0-0.9) H 02/15/20 06:59 Seg Neutrophils # 6.6 K/mm3 (1.8-7.7) 02/22/20 08:06 Seg Neutrophils # Man 5.9 K/mm3 (1.8-7.7) 02/15/20 06:59 Band Neutrophils # 0.0 K/mm3 02/15/20 06:59 Lymphocytes # (Manual) 3.5 K/mm3 (1.2-5.4) 02/15/20 06:59 Abs React Lymphs (Man) 0.1 K/mm3 02/15/20 06:59 Monocytes # (Manual) 0.4 K/mm3 (0.0-0.8) 02/15/20 06:59 Eosinophils # (Manual) 0.0 K/mm3 (0.0-0.4) 02/15/20 06:59 Basophils # (Manual) 0.2 K/mm3 (0.0-0.1) H 02/15/20 06:59 Metamyelocytes # 0.1 K/mm3 02/15/20 06:59 Myelocytes # 0.0 K/mm3 02/15/20 06:59 Promyelocytes # 0.0 K/mm3 02/15/20 06:59 Blast Cells # 0.0 K/mm3 02/15/20 06:59 WBC Morphology Not Reportable 02/15/20 06:59 Hypersegmented Neuts Not Reportable 02/15/20 06:59 Hyposegmented Neuts Not Reportable 02/15/20 06:59 Hypogranular Neuts Not Reportable 02/15/20 06:59 Smudge Cells Not Reportable 02/15/20 06:59 Toxic Granulation Not Reportable 02/15/20 06:59 Toxic Vacuolation Not Reportable 02/15/20 06:59 Dohle Bodies Not Reportable 02/15/20 06:59 Pelger-Huet Anomaly Not Reportable 02/15/20 06:59 Hector Rods Not Reportable 02/15/20 06:59 Platelet Estimate Consistent w auto 02/15/20 06:59 Clumped Platelets Not Reportable 02/15/20 06:59 Plt Clumps, EDTA Not Reportable 02/15/20 06:59 Large Platelets Not Reportable 02/15/20 06:59 Giant Platelets Not Reportable 02/15/20 06:59 Platelet Satelliting Not Reportable 02/15/20 06:59 Plt Morphology Comment Giant platelets 02/15/20 06:59 RBC Morphology Not Reportable 02/15/20 06:59 Dimorphic RBCs Not Reportable 02/15/20 06:59 Polychromasia Not Reportable 02/15/20 06:59 Hypochromasia 1+ 02/15/20 06:59 Poikilocytosis Few 02/15/20 06:59 Anisocytosis 1+ 02/15/20 06:59 Microcytosis Not Reportable 02/15/20 06:59 Macrocytosis Not Reportable 02/15/20 06:59 Spherocytes Not Reportable 02/15/20 06:59 Pappenheimer Bodies Not Reportable 02/15/20 06:59 Sickle Cells Not Reportable 02/15/20 06:59 Target Cells 1+ 02/15/20 06:59 Tear Drop Cells Few 02/15/20 06:59 Ovalocytes Not Reportable 02/15/20 06:59 Helmet Cells Not Reportable 02/15/20 06:59 Gott[place] Bodies Not Reportable 02/15/20 06:59 [place] Rings Not Reportable 02/15/20 06:59 Oc Cells Not Reportable 02/15/20 06:59 Bite Cells Not Reportable 02/15/20 06:59 Crenated Cell Not Reportable 02/15/20 06:59 Elliptocytes Few 02/15/20 06:59 Acanthocytes (Spur) Not Reportable 02/15/20 06:59 Rouleaux Not Reportable 02/15/20 06:59 Hemoglobin C Crystals Not Reportable 02/15/20 06:59 Schistocytes Not Reportable 02/15/20 06:59 Malaria parasites Not Reportable 02/15/20 06:59 Clifford Bodies Not Reportable 02/15/20 06:59 Hem Pathologist Commnt No 02/15/20 06:59 PT 27.0 Sec. (12.2-14.9) H 02/07/20 15:03 INR 2.46 (0.87-1.13) H 02/07/20 15:03 APTT 31.5 Sec. (24.2-36.6) 01/22/20 09:58 Heparin Anti-Xa Level 1.34 U.I./ml (0.3-0.7) H 01/22/20 04:45 ABG pH 7.461 pH Units (7.350-7.450) H 02/20/20 06:45 POC ABG pCO2 34.8 mmHg (32.0-48.0) 02/11/20 14:11 ABG pCO2 47.8 mm Hg 02/20/20 06:45 POC ABG pO2 77.7 mmHg (83-108) L 02/11/20 14:11 ABG pO2 88.7 mm Hg (80.0-90.0) 02/20/20 06:45 POC ABG HCO3 26.7 02/11/20 14:11 ABG HCO3 33.3 mmol/L (20.0-26.0) H 02/20/20 06:45 ABG O2 Saturation 97.2 % (95.0-99.0) 02/20/20 06:45 ABG O2 Content 13.3 (0.0-44) 02/20/20 06:45 POC ABG Base Excess 3.6 02/11/20 14:11 ABG Base Excess 8.4 mmol/L (-2.0-3.0) H 02/20/20 06:45 ABG Hemoglobin 10.0 gm/dl (14.0-18.0) L 02/20/20 06:45 ABG Oxyhemoglobin 84 (94-98) L 12/22/19 03:22 ABG Carboxyhemoglobin 2.9 % (0.0-5.0) 02/20/20 06:45 ABG Methemoglobin 0.4 % (0.0-1.5) 02/20/20 06:45 ABG Sodium 144.7 mmol/L (136.0-145.0) 02/11/20 14:11 ABG Potassium 3.5 mmol/L (3.40-4.50) 02/11/20 14:11 ABG Chloride 108.0 mmol/L (98-107) H 02/11/20 14:11 ABG Glucose 151 mg/dL (65-95) H 02/11/20 14:11 Oxyhemoglobin 94.1 % (95.0-99.0) L 02/20/20 06:45 Carboxyhemoglobin 0.7 (0.5-1.5) 12/22/19 03:22 FiO2 30 % 02/20/20 06:45 Sodium 146 mmol/L (137-145) H 02/22/20 08:06 Potassium 3.7 mmol/L (3.6-5.0) 02/22/20 08:06 Chloride 106.1 mmol/L (98-107) 02/22/20 08:06 Carbon Dioxide 34 mmol/L (22-30) H 02/22/20 08:06 Anion Gap 10 mmol/L 02/22/20 08:06 BUN 21 mg/dL (9-20) H 02/22/20 08:06 Creatinine 0.4 mg/dL (0.8-1.3) L 02/22/20 08:06 Estimated GFR > 60 ml/min 02/22/20 08:06 BUN/Creatinine Ratio 53 % 02/22/20 08:06 Glucose 149 mg/dL (75-100) H 02/22/20 08:06 POC Glucose 154 mg/dL (70-105) H 03/04/20 05:20 Lactic Acid 1.60 mmol/L (0.7-2.0) 02/03/20 12:49 Calcium 9.5 mg/dL (8.4-10.2) 02/22/20 08:06 Ferritin 84.4 ng/mL (30.0-300.0) 11/24/19 04:53 Phosphorus 4.10 mg/dL (2.5-4.5) 01/31/20 19:24 Magnesium 2.40 mg/dL (1.7-2.3) H 02/10/20 07:40 Total Bilirubin 1.30 mg/dL (0.1-1.2) H 02/08/20 19:00 Direct Bilirubin 0.9 mg/dL (0-0.2) H 02/08/20 19:00 Indirect Bilirubin 0.4 mg/dL 02/08/20 19:00 Total Creatine Kinase 141 units/L (55-170) 11/24/19 02:53 CK-MB (CK-2) 4.3 ng/mL (0.0-4.0) H 11/24/19 02:53 AST 309 units/L (5-40) H 02/08/20 19:00 ALT 650 units/L (7-56) H 02/08/20 19:00 CK-MB (CK-2) Rel Index 3.0 (0-4) 11/24/19 02:53 Alkaline Phosphatase 109 units/L (35-129) 02/08/20 19:00 C-Reactive Protein 8.50 mg/dL (0.00-1.30) H 12/01/19 12:16 Ammonia 35.0 umol/L (25-60) 02/03/20 12:49 Lactate Dehydrogenase 228 units/L (91-180) H 12/19/19 04:45 Troponin T < 0.010 ng/mL (0.00-0.029) 01/19/20 01:35 NT-Pro-B Natriuret Pep 3866 pg/mL (0-900) H 01/01/20 10:40 Total Protein 6.2 g/dL (6.3-8.2) L 02/08/20 19:00 Albumin 2.7 g/dL (3.9-5) L 02/08/20 19:00 Albumin/Globulin Ratio 0.8 % 02/08/20 19:00 Procalcitonin 0.44 ng/mL (<0.15) 02/03/20 12:49 Arterial Blood Glucose 151 mg/dL (65-95) H 02/11/20 14:11 Arterial Blood Ionized Calcium 4.7 mg/dL (4.6-5.3) 02/11/20 14:11 Urine Color Cecy (Yellow) 02/26/20 07:50 Urine Turbidity Clear (Clear) 02/26/20 07:50 Urine pH 5.0 (5.0-7.0) 02/26/20 07:50 Ur Specific [place] 1.025 (1.003-1.030) 02/26/20 07:50 Urine Protein 30 mg/dl mg/dL (Negative) 02/26/20 07:50 Urine Glucose (UA) Neg mg/dL (Negative) 02/26/20 07:50 Urine Ketones Neg mg/dL (Negative) 02/26/20 07:50 Urine Blood Sm (Negative) 02/26/20 07:50 Urine Nitrite Neg (Negative) 02/26/20 07:50 Urine Bilirubin Neg (Negative) 02/26/20 07:50 Urine Urobilinogen 4.0 mg/dL (<2.0) 02/26/20 07:50 Ur Leukocyte Esterase Lg (Negative) 02/26/20 07:50 Urine WBC (Auto) > 182.0 /HPF (0.0-6.0) H 02/26/20 07:50 Urine RBC (Auto) 84.0 /HPF (0.0-6.0) 02/26/20 07:50 U Epithel Cells (Auto) 2.0 /HPF (0-13.0) 12/31/19 18:04 Urine Bacteria (Auto) 4+ /HPF (Negative) 02/26/20 07:50 Urine WBC Clumps 2+ /HPF 02/26/20 07:50 Urine Mucus 1+ /HPF 02/26/20 07:50 Urine Creatinine 57.4 mg/dL (0.1-20.0) H 01/31/20 Unknown Urine Sodium 59 mmol/L 01/31/20 Unknown Vancomycin Trough 14.2 ug/mL (5.0-20.0) 12/13/19 15:01 Coronavirus (PCR) Negative (Negative) 12/29/19 10:07 Hepatitis A IgM Ab Non-reactive (NonReactive) 02/05/20 06:37 Hep Bs Antigen Non-reactive (Negative) 02/05/20 06:37 Hep B Core IgM Ab Non-reactive (NonReactive) 02/05/20 06:37 Hepatitis C Antibody Non-reactive (NonReactive) 02/05/20 06:37 Blood Type O POSITIVE 01/21/20 13:00 Antibody Screen Negative 01/21/20 13:00 - Diagnostic Impressions Diagnostic Impressions: Echocardiogram 11/29/19 07:37 Transthoracic Echocardiogram Indication: CHF BP: 116/72 HR: 33 Conclusions *The study is technically limited due to poor acoustic windows. *Global left ventricular systolic function is normal. *The estimated ejection fraction is 50-55%. *Mild concentric left ventricular hypertrophy is observed. *There is trace of mitral regurgitation. *There is mild tricuspid regurgitation. Findings Procedure Info: The study quality is poor. The study is technically limited due to poor acoustic windows. The study is technically limited due to patient body habitus. Left Ventricle: The left ventricular chamber size is normal. Mild concentric left ventricular hypertrophy is observed. Global left ventricular systolic function is normal. The estimated ejection fraction is 50-55%. Left Atrium: The left atrial chamber size is normal. Right Ventricle: The right ventricular cavity size is normal. Right Atrium: The right atrial cavity size is normal. Aortic Valve: The aortic valve leaflets are moderately thickened. There is trace of aortic regurgitation. There is no evidence of aortic stenosis. Mitral Valve: The mitral valve leaflets are mildly thickened. There is trace of mitral regurgitation. There is no evidence of mitral stenosis. Tricuspid Valve: There is mild tricuspid regurgitation. No pulmonary hypertension is noted. Pulmonic Valve: There is trace pulmonic regurgitation. Pericardium: There is no pericardial effusion. Aorta: There is no dilatation of the aortic root. Venous: The inferior vena cava appears normal in size. Contrast: Definity was used to optimize study. Intravenous contrast was used to enhance endocardial border definition. Measurements Chambers 2D Name Value Normal Range Ao root diameter (2D) 3.4 cm (2 - 3.7) Aortic Valve Name Value Normal Range AV Vmax 0.98 m/sec - AV VTI 16.76 cm - AV peak gradient 3.83 mmHg - AV mean gradient 2.57 mmHg - LVOT diameter 3.11 cm - LVOT Vmax 0.68 m/sec - LVOT VTI 11.52 cm - LVOT peak gradient 1.84 mmHg - LVOT mean gradient 1.27 mmHg - SV LVOT 87.31 ml - MALOU (continuity Vmax) 5.24 cm2 - MALOU (continuity VTI) 5.21 cm2 - Tricuspid Valve Name Value Normal Range IVC diameter 2.24 cm (1.2 - 2.3) Hoffman/IV: Voiding Method Indwelling Catheter IV Catheter Type [Left INT / Saline Lock Antecubital] IV Catheter Type [Right INT / Saline Lock Forearm] IV Catheter Type [Right Hand] Peripheral IV IV Catheter Type [Right Upper INT / Saline Lock arm] IV Catheter Type [Left Upper Mid-line arm] IV Catheter Type [Left Forearm Peripheral IV ] IV Catheter Type [Left Hand] Peripheral IV IV Catheter Type [Left Wrist] INT / Saline Lock IV Catheter Type [Right Peripheral IV Antecubital] Active Medications - Current Medications Current Medications: Generic Name Dose Route Start Last Admin Trade Name Freq PRN Reason Stop Dose Admin Lipase/Protease/Amylase 1 each 01/09/20 12:01 Pancrepetr Betancourt 10,500 Unit FEEDTUBE PRN PRN For Clogged Feeding Tube Apixaban 5 mg 01/22/20 22:00 03/04/20 09:12 Eliquis PO 5 mg Q12HR CAR Administration Protocol Atorvastatin Calcium 40 mg 01/20/20 22:00 03/03/20 21:34 Lipitor PO 40 mg QHS CAR Administration Clopidogrel Bisulfate 75 mg 01/21/20 06:00 03/04/20 09:14 Plavix PO 75 mg QDAY CAR Administration Dextrose 50 ml 01/31/20 18:51 02/05/20 00:56 D50w (25gm) Syringe IV 50 ml Q30MIN PRN Administration Hypoglycemia Protocol Digoxin 0.125 mg 02/25/20 17:00 03/03/20 17:23 Lanoxin PO 0.125 mg DAILY@1700 CAR Administration Docusate Sodium 100 mg 02/22/20 10:00 03/04/20 09:12 Colace FEEDTUBE 100 mg BID CAR Administration Glycopyrrolate 2 mg 02/24/20 21:00 03/04/20 09:12 Glycopyrrolate PO 2 mg TID CAR Administration Haloperidol Lactate 5 mg 02/10/20 14:20 03/03/20 02:25 Haldol IV 5 mg Q6H PRN Administration Agitation Hydrophilic Ointment 1 applic 01/17/20 15:26 02/24/20 23:20 Vaseline Lip Therapy TP 1 applic DIRECT PRN Administration Dry Lips Insulin Human Regular 0 unit 02/01/20 18:00 03/04/20 05:34 Humulin R SUB-Q 1 unit Q6H CAR Administration Protocol Lansoprazole 30 mg 02/05/20 16:00 03/04/20 09:14 Prevacid Solutab FEEDTUBE 30 mg QDAY CAR Administration Metoprolol Tartrate 5 mg 01/11/20 08:00 03/03/20 01:46 Metoprolol IV 5 mg Q6H PRN Administration SEE INSTRUCTIONS Metoprolol Tartrate 12.5 mg 02/28/20 12:00 03/04/20 09:14 Metoprolol FEEDTUBE 12.5 mg BID CAR Administration Midodrine 15 mg 02/04/20 16:00 03/04/20 09:12 Proamatine PO 15 mg TID@0800,1200,1600 CAR Administration Morphine Sulfate 2 mg 01/06/20 15:41 03/03/20 10:05 Morphine IV 2 mg Q4H PRN Administration Pain, Moderate (4-6) Multi-Ingred Cream/Lotion/Oil/Oint 1 applic 02/01/20 15:52 Artificial Tears Ophth Oint OU Q4HR PRN Dry Eye(s) Nitroglycerin 0.4 mg 01/19/20 21:09 01/20/20 03:03 Nitrostat SL 0.4 mg .Q5MIN PRN Administration Chest Pain Ondansetron HCl 4 mg 01/05/20 14:37 02/29/20 12:39 Ondansetron 4 Mg/2 Ml Inj IV 4 mg Q8H PRN Administration Nausea And Vomiting Polyethylene Glycol 17 gm 12/04/19 22:00 03/03/20 21:37 Miralax 3350 PO 17 gm QHS CAR Administration Quetiapine Fumarate 300 mg 01/13/20 22:00 03/04/20 09:14 Seroquel PO 300 mg BID CAR Administration Scopolamine 1 each 01/07/20 20:00 01/07/20 21:08 Transderm-Scop TD 1 each Q72HR CAR Administration Simple Syrup 15 ml 01/09/20 12:01 Simple Syrup FEEDTUBE PRN PRN Hypoglycemia Simple Syrup 30 ml 01/09/20 12:01 Simple Syrup FEEDTUBE PRN PRN Hypoglycemia Sodium Bicarbonate 325 mg 01/09/20 12:01 Sodium Bicarbonate FEEDTUBE PRN PRN For Clogged Feeding Tube Sodium Chloride 10 ml 11/24/19 10:00 03/04/20 09:15 Sodium Chloride Flush Syringe 10 Ml IV 10 ml BID CAR Administration Tamsulosin HCl 0.8 mg 12/20/19 22:00 03/03/20 21:34 Flomax PO 0.8 mg QHS CAR Administration Nutrition/Malnutrition Assess - Dietary Evaluation Nutrition/Malnutrition Findings: Nutrition Notes Start: 11/24/19 12:22 Freq: Status: Active Protocol: Document 03/02/20 12:13 AB (Rec: 03/02/20 12:19 AB [id number]) Co-Sign 03/02/20 12:13 LM Nutrition Notes Initial or Follow up Reassessment Current Diagnosis Coronary Artery Disease,Heart Failure,Respiratory Failure, Stroke,Hyperlipidemia Other Pertinent Diagnosis Partial SBO, pneu Current Diet Osmolite 1.5 at 65ml/hr Labs/Tests POC BG 176 Pertinent Medications Humulin Height 6 ft 2 in Weight 119 kg [place] Body Weight (kg) 86.36 BMI 33.7 Weight Status Obese Subjective/Other Information F/U for TF tolerance and Na lab. [facility] [employer] observed TF running at goal rate. Per nurse, pt has not had any nausea and is tolerating TF. Percent of energy/protein needs met: 95%/57% Burn Absent Trauma Absent GI Symptoms None Current % PO Negligible Minimum of two criteria Yes Muscle Mass Mild Depletion (non-severe) Fluid Accumulation Mild (non-severe) Reduced Care Asst Strength Measurably Reduced (severe) #2 Nutrition Diagnosis Malnutrition Diagnosis Progress(for reassessment Continues documentation) #1 Nutrition Diagnosis Inadequate oral intake Diagnosis Progress(for reassessment Continues documentation) Is patient on ventilator? Yes Is Patient Ambulatory and/or Out of Bed No REE-([facility]-confined to bed) [phone] Calculation Used for Recommendations [facility] Additional Notes Protein needs are 173g ( greater than 2g/kg IBW) Fluid needs are 1 ml/kcal Nutrition Intervention Change Diet Order: Continue TF via PEG Nutrition Support: Osmolite 1.5 at 65 ml/hr. Flush 200 ml q4h. Kcal 2,340 Protein (gm) 98 Fluid (mL) 1,189 Goal #1 Meet at least 75% of pt's energy and protein needs Goal #2 Weight maintenance Anticipated Discharge Needs: unable to determine at this time Follow-Up By: 03/04/20 Additional Comments F/U for TF tolerance and new Na lab
--- NOTE | 2020-03-04 11:45 | Progress Note ---
<KACEY HICKEY - Last Filed: 03/04/20 11:44> Assessment and Plan Chest pain, resolved LHC done 01/22/20 widely patent previous LAD stent. We found mild nonobstructive atherosclerosis of the mid right coronary artery. Otherwise the rest of the coronary system was without significant atherosclerosis. LVEF 40 to 45%. There was some hypokinesis of the basal inferior wall suggestive of previous or recent infarct. ECG done 01/19/20 shows sinus rhythm with low voltage QRS and subtle ST segment elevations in the inferolateral leads that suggested possible concern for an acute injury at that time. Atrial fibrillation, rate control on digoxin and low dose metoprolol amiodarone discontinued due to liver transaminases Ischemic Cardiomyopathy re-echo this presentation reports an LVEF 40-45%. Hx of CAD Multifocal pneumonia negative COVID-19 test x 3 Chronic Respiratory failure s/p trach History of COPD Acute PE/DVT -on Eliquis Anemia Partial SBO vs ileus Conservative cardiac management. Will follow intermittently. Subjective Date of service: 03/04/20 Principal diagnosis: Ac hypoxemic resp failure; Pneumonia; PUI COVID-19; CHF; COPD; HTN Interval history: No interval cardiac changes. Atrial fibrillation with a well controlled ventricular rate on telemetry. Objective Vital Signs Temp Pulse Pulse Resp Resp BP Pulse Ox 03/04/20 11:01 106 H 24 92/74 99 03/04/20 10:01 100 H 15 97/76 98 03/04/20 10:00 108 H 97/76 100 03/04/20 09:14 122 H 111/76 03/04/20 09:00 110 H 16 111/76 98 03/04/20 08:00 141 H 126 H 21 119/90 96 03/04/20 07:01 152 H 26 H 118/80 100 03/04/20 06:01 130 H 24 97/82 100 03/04/20 05:00 109 H 16 118/80 100 03/04/20 04:23 114 H 116/92 100 03/04/20 04:01 115 H 18 116/92 100 03/04/20 04:00 98.2 F 99 H 99 H 16 100 03/04/20 03:01 132 H 18 96/48 100 03/04/20 02:01 107 H 20 96/48 99 03/04/20 01:00 134 H 18 127/87 99 03/04/20 00:28 129 H 118/97 100 03/04/20 00:00 97.6 F 135 H 129 H 27 H 117/89 99 03/03/20 23:00 106 H 22 127/102 100 03/03/20 22:00 129 H 26 H 127/102 100 03/03/20 21:34 126 H 129/93 03/03/20 21:00 100 H 14 104/80 100 03/03/20 20:11 03/03/20 20:00 97.8 F 132 H 24 115/94 100 03/03/20 19:02 117 H 26 H 115/94 99 03/03/20 19:00 124 H 27 H 115/94 99 03/03/20 18:00 123 H 21 122/82 100 03/03/20 17:23 113 H 122/82 03/03/20 17:00 97 H 22 122/82 100 03/03/20 16:40 03/03/20 16:00 98.3 F 127 H 101 H 26 H 20 130/86 98 03/03/20 15:00 123 H 26 H 123/96 97 03/03/20 14:40 96 03/03/20 14:01 124 H 123/97 97 03/03/20 14:00 132 H 16 123/96 99 03/03/20 13:00 126 H 18 130/100 100 03/03/20 12:00 98.0 F 130 H 102 H 24 20 130/100 92 Pulse Ox 03/04/20 11:01 03/04/20 10:01 03/04/20 10:00 100 03/04/20 09:14 03/04/20 09:00 03/04/20 08:00 03/04/20 07:01 03/04/20 06:01 03/04/20 05:00 03/04/20 04:23 03/04/20 04:01 03/04/20 04:00 03/04/20 03:01 03/04/20 02:01 03/04/20 01:00 03/04/20 00:28 03/04/20 00:00 03/03/20 23:00 03/03/20 22:00 03/03/20 21:34 03/03/20 21:00 03/03/20 20:11 100 03/03/20 20:00 03/03/20 19:02 03/03/20 19:00 03/03/20 18:00 03/03/20 17:23 03/03/20 17:00 03/03/20 16:40 98 03/03/20 16:00 03/03/20 15:00 03/03/20 14:40 03/03/20 14:01 03/03/20 14:00 03/03/20 13:00 03/03/20 12:00 - Physical Examination General: Other (s/p trach) HEENT: Positive: PERRL Neck: Positive: Other (s/p trach) Cardiac: Positive: irregularly irregular Neuro: Positive: Weakness Extremities: Absent: edema - Allied health notes Allied health notes reviewed: nursing <PETRONA SHAHID - Last Filed: 03/04/20 12:36> Assessment and Plan - Patient Problems (1) Acute respiratory failure Current Visit: Yes Status: Acute (2) Bilateral pneumonia Current Visit: Yes Status: Acute (3) COPD exacerbation Current Visit: No Status: Acute (4) Hypertension Current Visit: No Status: Acute Qualifiers: Hypertension type: essential hypertension Qualified Code(s): I10 - Essential (primary) hypertension (5) Cardiomyopathy Current Visit: Yes Status: Acute (6) Paroxysmal atrial fibrillation Current Visit: Yes Status: Acute Subjective Interval history: I SAW THIS PT & AGREE WITH THE Dx & Tx PLAN. Objective Vital Signs Temp Pulse Pulse Resp Resp BP Pulse Ox 03/04/20 11:01 106 H 24 92/74 99 03/04/20 10:01 100 H 15 97/76 98 03/04/20 10:00 108 H 97/76 100 03/04/20 09:14 122 H 111/76 03/04/20 09:00 110 H 16 111/76 98 03/04/20 08:00 141 H 126 H 21 119/90 96 03/04/20 07:01 152 H 26 H 118/80 100 03/04/20 06:01 130 H 24 97/82 100 03/04/20 05:00 109 H 16 118/80 100 03/04/20 04:23 114 H 116/92 100 03/04/20 04:01 115 H 18 116/92 100 03/04/20 04:00 98.2 F 99 H 99 H 16 100 03/04/20 03:01 132 H 18 96/48 100 03/04/20 02:01 107 H 20 96/48 99 03/04/20 01:00 134 H 18 127/87 99 03/04/20 00:28 129 H 118/97 100 03/04/20 00:00 97.6 F 135 H 129 H 27 H 117/89 99 03/03/20 23:00 106 H 22 127/102 100 03/03/20 22:00 129 H 26 H 127/102 100 03/03/20 21:34 126 H 129/93 03/03/20 21:00 100 H 14 104/80 100 03/03/20 20:11 03/03/20 20:00 97.8 F 132 H 24 115/94 100 03/03/20 19:02 117 H 26 H 115/94 99 03/03/20 19:00 124 H 27 H 115/94 99 03/03/20 18:00 123 H 21 122/82 100 03/03/20 17:23 113 H 122/82 03/03/20 17:00 97 H 22 122/82 100 03/03/20 16:40 03/03/20 16:00 98.3 F 127 H 101 H 26 H 20 130/86 98 03/03/20 15:00 123 H 26 H 123/96 97 03/03/20 14:40 96 03/03/20 14:01 124 H 123/97 97 03/03/20 14:00 132 H 16 123/96 99 03/03/20 13:00 126 H 18 130/100 100 Pulse Ox 03/04/20 11:01 03/04/20 10:01 03/04/20 10:00 100 03/04/20 09:14 03/04/20 09:00 03/04/20 08:00 03/04/20 07:01 03/04/20 06:01 03/04/20 05:00 03/04/20 04:23 03/04/20 04:01 03/04/20 04:00 03/04/20 03:01 03/04/20 02:01 03/04/20 01:00 03/04/20 00:28 03/04/20 00:00 03/03/20 23:00 03/03/20 22:00 03/03/20 21:34 03/03/20 21:00 03/03/20 20:11 100 03/03/20 20:00 03/03/20 19:02 03/03/20 19:00 03/03/20 18:00 03/03/20 17:23 03/03/20 17:00 03/03/20 16:40 98 03/03/20 16:00 03/03/20 15:00 03/03/20 14:40 03/03/20 14:01 03/03/20 14:00 03/03/20 13:00
--- NOTE | 2020-03-04 13:22 | Progress Note ---
Assessment and Plan Acute hypoxemic respiratory failure Bilateral pneumonia, community acquired. Acute LLL branch P.E. Acute DVT Person under investigation for COVID-19 infection. Acute congestive heart failure exacerbation. History of cerebrovascular accident. Acute chronic obstructive pulmonary disease exacerbation. Hypertension and hypertensive urgency at presentation. History of arthritis. Leukocytosis. Lactic acidosis. Oropharyngeal dysphagia - continue daily SATs and SBT assessment as tolerated -Get CBC, BMP in am -Not tolerating weaning well - continue prn haldol for agitation to avoid hypoventilation - continue Flomax - Midodrine for blood pressure - prn mucomyst nebs re: secretions - continue full anticoagulation with Apixaban - continue Seroquel for anxiolysis / delirium - continue to wean oxygen for O2 sats > 92% - continue bronchodilators with routine trach care and pulmonary hygiene per RT - continue Robinul & Scopolamine for secretion control - VAP bundle addressed (Aspiration precautions, HOB >40) - continue to wean per pulmonary driven protocols - continue prn analgesia per CPOT score - Avoid delirium (no benzodiazepines if they can be avoided) - Maintain sleep-wake cycle - enteral nutrition at goal rate as tolerated - continue accuchecks with glycemic control per SSI for target blood glucose goal of 140-180 mg/dL while critically ill; Avoid hypoglycemia - for VTE he is on IV Heparin - continue stress ulcer prophylaxis with Famotidine - continue mobility protocols for pressure ulcer prevention - continue fall precautions - continue wound care management per RN / WCT - Supportive transfusions to keep HgB>7g/dL - Continue to monitor neurologic function - Continue all supportive care ........ re-evaluate in am & prn CONDITION: CRITICAL PROGNOSIS: GUARDED CODE STATUS: FULL CODE The high probability of a clinically significant, sudden or life threatening deterioration of the [Respiratory, cardiovascular & neurological] system(s) required my full and direct attention, intervention and personal management. The aggregate critical care time was [32] minutes without overlap. Time includes spent on [x] Data Review and interpretation [x] Patient assessment and monitoring of vital signs [x] Documentation [x] Medication orders and management Subjective Date of service: 03/04/20 Principal diagnosis: Ac hypoxemic resp failure; Pneumonia; PUI COVID-19; CHF; COPD; HTN Interval history: Patient is seen today for: Acute hypoxemic respiratory failure; Adan. Pneumonia (CAP); PUI COVID-19 infection; AE-CHF; AE-COPD; H/O CVA; HTN; PE, DVT Seen and examined at bedside; 24 hour events reviewed; nursing and respiratory care staff consulted; no adverse overnight events reported to me; resting peacefully in bed; s/p trach on full support, awake and alert ,tolerating tube feedings. Vent on full support Size#6 Shiley, Mouths words to make needs known, No fevers, no vomiting. Objective Vital Signs - 12hr 03/04/20 03/04/20 03/04/20 02:01 03:01 04:00 Temperature 98.2 F Pulse Rate 107 H 132 H 99 H Pulse Rate [ 99 H From Monitor] Respiratory 20 18 16 Rate Blood Pressure 96/48 96/48 O2 Sat by Pulse 99 100 100 Oximetry O2 Sat by Pulse Oximetry [ Assessment] 03/04/20 03/04/20 03/04/20 04:01 04:23 05:00 Temperature Pulse Rate 115 H 114 H 109 H Pulse Rate [ From Monitor] Respiratory 18 16 Rate Blood Pressure 116/92 116/92 118/80 O2 Sat by Pulse 100 100 100 Oximetry O2 Sat by Pulse Oximetry [ Assessment] 03/04/20 03/04/20 03/04/20 06:01 07:01 08:00 Temperature 98.6 F Pulse Rate 130 H 152 H 141 H Pulse Rate [ 126 H From Monitor] Respiratory 24 26 H 21 Rate Blood Pressure 97/82 118/80 119/90 O2 Sat by Pulse 100 100 96 Oximetry O2 Sat by Pulse Oximetry [ Assessment] 03/04/20 03/04/20 03/04/20 09:00 09:14 10:00 Temperature Pulse Rate 110 H 122 H 108 H Pulse Rate [ From Monitor] Respiratory 16 Rate Blood Pressure 111/76 111/76 97/76 O2 Sat by Pulse 98 100 Oximetry O2 Sat by Pulse 100 Oximetry [ Assessment] 03/04/20 03/04/20 03/04/20 10:01 11:01 12:00 Temperature 97.7 F Pulse Rate 100 H 106 H Pulse Rate [ From Monitor] Respiratory 15 24 Rate Blood Pressure 97/76 92/74 O2 Sat by Pulse 98 99 Oximetry O2 Sat by Pulse Oximetry [ Assessment] Constitutional: no acute distress, alert, asleep, other (Patient is resting on mechanical ventilation.) Eyes: non-icteric ENT: oropharynx moist, other (+ midline tracheostomy) Neck: supple, no JVD Effort: mildly labored Ascultation: Bilateral: clear, diminished breath sounds, rhonchi (scant), other (mild tracheal secretions ) Percussion: Bilateral: not dull Cardiovascular: irregular rhythm Gastrointestinal: normoactive bowel sounds, soft, non-tender, non-distended (protuberant), other (protuberant; PEG in place) Integumentary: normal Extremities: no cyanosis, pulses normal, no ischemia or petechiae, edema (bilateral lower) Neurologic: non-focal exam (moves extremities), pupils equal and round, other (Patient sleeping.) Psychiatric: other (Patient sleeping.) CBC and BMP: 02/22/20 08:06 02/22/20 08:06 ABG, PT/INR, D-dimer: ABG ABG pH 7.461 pH Units (7.350-7.450) H 02/20/20 06:45 POC ABG pCO2 34.8 mmHg (32.0-48.0) 02/11/20 14:11 ABG pCO2 47.8 mm Hg 02/20/20 06:45 POC ABG pO2 77.7 mmHg (83-108) L 02/11/20 14:11 ABG pO2 88.7 mm Hg (80.0-90.0) 02/20/20 06:45 POC ABG HCO3 26.7 02/11/20 14:11 ABG O2 Saturation 97.2 % (95.0-99.0) 02/20/20 06:45 PT/INR, D-dimer PT 27.0 Sec. (12.2-14.9) H 02/07/20 15:03 INR 2.46 (0.87-1.13) H 02/07/20 15:03 Abnormal lab findings: Abnormal Labs 11/24/19 11/24/19 11/24/19 02:53 02:53 03:45 WBC 14.3 H RBC Hgb Hct MCHC RDW 17.2 H MCV MCH Lymph % (Auto) Edwards % (Auto) Edwards # Eos # Lymph # (Auto) Edwards # (Auto) Eos # (Auto) Seg Neutrophils % Seg Neuts % (Manual) Baso # (Auto) Lymphocytes % (Manual) Monocytes % (Manual) Eosinophils % (Manual) Basophils % (Manual) Seg Neutrophils # Seg Neutrophils # Man 8.3 H Lymphocytes # (Manual) Monocytes # (Manual) 0.9 H Eosinophils # (Manual) Nucleated RBC % Basophils # (Manual) PT INR APTT Heparin Anti-Xa Level ABG pH 7.313 L POC ABG pO2 ABG pO2 102.8 H ABG HCO3 ABG O2 Saturation ABG Base Excess -2.9 L POC ABG pCO2 ABG Hemoglobin ABG Oxyhemoglobin ABG Chloride ABG Glucose Oxyhemoglobin 93.9 L Sodium Potassium Chloride Carbon Dioxide BUN Creatinine Glucose 195 H POC Glucose Lactic Acid Calcium Phosphorus Magnesium AST ALT Lactate Dehydrogenase Total Bilirubin Direct Bilirubin CK-MB (CK-2) 4.3 H C-Reactive Protein NT-Pro-B Natriuret Pep 1181 H Total Protein Albumin Arterial Blood Glucose Urine WBC (Auto) Urine Creatinine 11/24/19 11/24/19 11/24/19 04:53 04:53 10:37 WBC RBC Hgb Hct MCHC RDW MCV MCH Lymph % (Auto) Edwards % (Auto) Edwards # Eos # Lymph # (Auto) Edwards # (Auto) Eos # (Auto) Seg Neutrophils % Seg Neuts % (Manual) Baso # (Auto) Lymphocytes % (Manual) Monocytes % (Manual) Eosinophils % (Manual) Basophils % (Manual) Seg Neutrophils # Seg Neutrophils # Man Lymphocytes # (Manual) Monocytes # (Manual) Eosinophils # (Manual) Nucleated RBC % Basophils # (Manual) PT INR APTT Heparin Anti-Xa Level ABG pH POC ABG pO2 ABG pO2 ABG HCO3 ABG O2 Saturation ABG Base Excess POC ABG pCO2 ABG Hemoglobin ABG Oxyhemoglobin ABG Chloride ABG Glucose Oxyhemoglobin Sodium Potassium Chloride Carbon Dioxide BUN Creatinine Glucose 162 H POC Glucose Lactic Acid 2.40 H* 2.50 H* Calcium Phosphorus Magnesium AST ALT Lactate Dehydrogenase 240 H Total Bilirubin Direct Bilirubin CK-MB (CK-2) C-Reactive Protein NT-Pro-B Natriuret Pep Total Protein Albumin Arterial Blood Glucose Urine WBC (Auto) Urine Creatinine 11/24/19 11/24/19 11/24/19 12:21 14:50 19:54 WBC RBC Hgb Hct MCHC RDW MCV MCH Lymph % (Auto) Edwards % (Auto) Edwards # Eos # Lymph # (Auto) Edwards # (Auto) Eos # (Auto) Seg Neutrophils % Seg Neuts % (Manual) Baso # (Auto) Lymphocytes % (Manual) Monocytes % (Manual) Eosinophils % (Manual) Basophils % (Manual) Seg Neutrophils # Seg Neutrophils # Man Lymphocytes # (Manual) Monocytes # (Manual) Eosinophils # (Manual) Nucleated RBC % Basophils # (Manual) PT INR APTT Heparin Anti-Xa Level ABG pH POC ABG pO2 ABG pO2 ABG HCO3 ABG O2 Saturation ABG Base Excess POC ABG pCO2 ABG Hemoglobin ABG Oxyhemoglobin ABG Chloride ABG Glucose Oxyhemoglobin Sodium Potassium Chloride Carbon Dioxide BUN Creatinine Glucose POC Glucose 145 H 143 H 124 H Lactic Acid Calcium Phosphorus Magnesium AST ALT Lactate Dehydrogenase Total Bilirubin Direct Bilirubin CK-MB (CK-2) C-Reactive Protein NT-Pro-B Natriuret Pep Total Protein Albumin Arterial Blood Glucose Urine WBC (Auto) Urine Creatinine 11/25/19 11/25/19 11/25/19 00:18 03:18 05:11 WBC 13.7 H RBC Hgb Hct MCHC RDW 17.1 H MCV MCH Lymph % (Auto) 10.8 L Edwards % (Auto) 8.7 H Edwards # 1.2 H Eos # Lymph # (Auto) Edwards # (Auto) Eos # (Auto) Seg Neutrophils % 80.2 H Seg Neuts % (Manual) Baso # (Auto) Lymphocytes % (Manual) Monocytes % (Manual) Eosinophils % (Manual) Basophils % (Manual) Seg Neutrophils # 11.0 H Seg Neutrophils # Man Lymphocytes # (Manual) Monocytes # (Manual) Eosinophils # (Manual) Nucleated RBC % Basophils # (Manual) PT INR APTT Heparin Anti-Xa Level ABG pH 7.333 L POC ABG pO2 ABG pO2 61.2 L ABG HCO3 ABG O2 Saturation 90.2 L ABG Base Excess POC ABG pCO2 ABG Hemoglobin 13.7 L ABG Oxyhemoglobin ABG Chloride ABG Glucose Oxyhemoglobin 88.2 L Sodium Potassium Chloride Carbon Dioxide BUN Creatinine Glucose POC Glucose 109 H Lactic Acid Calcium Phosphorus Magnesium AST ALT Lactate Dehydrogenase Total Bilirubin Direct Bilirubin CK-MB (CK-2) C-Reactive Protein NT-Pro-B Natriuret Pep Total Protein Albumin Arterial Blood Glucose Urine WBC (Auto) Urine Creatinine 11/25/19 11/25/19 11/26/19 05:11 11:40 03:12 WBC RBC Hgb Hct MCHC RDW MCV MCH Lymph % (Auto) Edwards % (Auto) Edwards # Eos # Lymph # (Auto) Edwards # (Auto) Eos # (Auto) Seg Neutrophils % Seg Neuts % (Manual) Baso # (Auto) Lymphocytes % (Manual) Monocytes % (Manual) Eosinophils % (Manual) Basophils % (Manual) Seg Neutrophils # Seg Neutrophils # Man Lymphocytes # (Manual) Monocytes # (Manual) Eosinophils # (Manual) Nucleated RBC % Basophils # (Manual) PT INR APTT Heparin Anti-Xa Level ABG pH POC ABG pO2 ABG pO2 155.1 H ABG HCO3 27.8 H ABG O2 Saturation ABG Base Excess POC ABG pCO2 ABG Hemoglobin 12.2 L ABG Oxyhemoglobin ABG Chloride ABG Glucose Oxyhemoglobin Sodium Potassium Chloride Carbon Dioxide BUN 23 H Creatinine Glucose 110 H POC Glucose 108 H Lactic Acid Calcium Phosphorus Magnesium AST ALT Lactate Dehydrogenase Total Bilirubin Direct Bilirubin CK-MB (CK-2) C-Reactive Protein NT-Pro-B Natriuret Pep Total Protein Albumin Arterial Blood Glucose Urine WBC (Auto) Urine Creatinine 11/26/19 11/26/19 11/26/19 06:17 10:43 10:43 WBC 11.4 H RBC Hgb Hct MCHC RDW 17.1 H MCV MCH Lymph % (Auto) Edwards % (Auto) Edwards # Eos # Lymph # (Auto) Edwards # (Auto) Eos # (Auto) Seg Neutrophils % Seg Neuts % (Manual) Baso # (Auto) Lymphocytes % (Manual) Monocytes % (Manual) Eosinophils % (Manual) Basophils % (Manual) Seg Neutrophils # Seg Neutrophils # Man Lymphocytes # (Manual) Monocytes # (Manual) Eosinophils # (Manual) Nucleated RBC % Basophils # (Manual) PT INR APTT Heparin Anti-Xa Level ABG pH POC ABG pO2 ABG pO2 ABG HCO3 ABG O2 Saturation ABG Base Excess POC ABG pCO2 ABG Hemoglobin ABG Oxyhemoglobin ABG Chloride ABG Glucose Oxyhemoglobin Sodium Potassium Chloride Carbon Dioxide BUN 29 H Creatinine Glucose POC Glucose 107 H Lactic Acid Calcium Phosphorus Magnesium AST ALT Lactate Dehydrogenase Total Bilirubin Direct Bilirubin CK-MB (CK-2) C-Reactive Protein NT-Pro-B Natriuret Pep Total Protein Albumin Arterial Blood Glucose Urine WBC (Auto) Urine Creatinine 11/26/19 11/27/19 11/27/19 17:11 01:53 04:11 WBC RBC Hgb Hct MCHC RDW MCV MCH Lymph % (Auto) Edwards % (Auto) Edwards # Eos # Lymph # (Auto) Edwards # (Auto) Eos # (Auto) Seg Neutrophils % Seg Neuts % (Manual) Baso # (Auto) Lymphocytes % (Manual) Monocytes % (Manual) Eosinophils % (Manual) Basophils % (Manual) Seg Neutrophils # Seg Neutrophils # Man Lymphocytes # (Manual) Monocytes # (Manual) Eosinophils # (Manual) Nucleated RBC % Basophils # (Manual) PT INR APTT Heparin Anti-Xa Level ABG pH POC ABG pO2 ABG pO2 ABG HCO3 29.2 H ABG O2 Saturation ABG Base Excess 3.4 H POC ABG pCO2 ABG Hemoglobin 13.3 L ABG Oxyhemoglobin ABG Chloride ABG Glucose Oxyhemoglobin 94.5 L Sodium Potassium Chloride Carbon Dioxide BUN Creatinine Glucose POC Glucose 113 H 108 H Lactic Acid Calcium Phosphorus Magnesium AST ALT Lactate Dehydrogenase Total Bilirubin Direct Bilirubin CK-MB (CK-2) C-Reactive Protein NT-Pro-B Natriuret Pep Total Protein Albumin Arterial Blood Glucose Urine WBC (Auto) Urine Creatinine 11/27/19 11/28/19 11/28/19 05:27 05:00 05:25 WBC RBC Hgb Hct MCHC RDW MCV MCH Lymph % (Auto) Edwards % (Auto) Edwards # Eos # Lymph # (Auto) Edwards # (Auto) Eos # (Auto) Seg Neutrophils % Seg Neuts % (Manual) Baso # (Auto) Lymphocytes % (Manual) Monocytes % (Manual) Eosinophils % (Manual) Basophils % (Manual) Seg Neutrophils # Seg Neutrophils # Man Lymphocytes # (Manual) Monocytes # (Manual) Eosinophils # (Manual) Nucleated RBC % Basophils # (Manual) PT INR APTT Heparin Anti-Xa Level ABG pH POC ABG pO2 68.1 L ABG pO2 ABG HCO3 ABG O2 Saturation ABG Base Excess POC ABG pCO2 ABG Hemoglobin ABG Oxyhemoglobin 91.2 L ABG Chloride ABG Glucose Oxyhemoglobin Sodium Potassium Chloride Carbon Dioxide BUN Creatinine Glucose POC Glucose 111 H 110 H Lactic Acid Calcium Phosphorus Magnesium AST ALT Lactate Dehydrogenase Total Bilirubin Direct Bilirubin CK-MB (CK-2) C-Reactive Protein NT-Pro-B Natriuret Pep Total Protein Albumin Arterial Blood Glucose Urine WBC (Auto) Urine Creatinine 11/28/19 11/28/19 11/28/19 12:08 13:47 13:47 WBC 11.3 H RBC Hgb Hct MCHC RDW 16.1 H MCV MCH Lymph % (Auto) Edwards % (Auto) 9.9 H Edwards # 1.1 H Eos # Lymph # (Auto) Edwards # (Auto) Eos # (Auto) Seg Neutrophils % 71.4 H Seg Neuts % (Manual) Baso # (Auto) Lymphocytes % (Manual) Monocytes % (Manual) Eosinophils % (Manual) Basophils % (Manual) Seg Neutrophils # 8.1 H Seg Neutrophils # Man Lymphocytes # (Manual) Monocytes # (Manual) Eosinophils # (Manual) Nucleated RBC % Basophils # (Manual) PT INR APTT Heparin Anti-Xa Level ABG pH POC ABG pO2 ABG pO2 ABG HCO3 ABG O2 Saturation ABG Base Excess POC ABG pCO2 ABG Hemoglobin ABG Oxyhemoglobin ABG Chloride ABG Glucose Oxyhemoglobin Sodium Potassium Chloride Carbon Dioxide BUN 23 H Creatinine Glucose 123 H POC Glucose 112 H Lactic Acid Calcium Phosphorus Magnesium AST ALT Lactate Dehydrogenase Total Bilirubin Direct Bilirubin CK-MB (CK-2) C-Reactive Protein NT-Pro-B Natriuret Pep Total Protein Albumin 3.7 L Arterial Blood Glucose Urine WBC (Auto) Urine Creatinine 11/28/19 11/29/19 11/29/19 17:26 03:55 17:04 WBC RBC Hgb Hct MCHC RDW MCV MCH Lymph % (Auto) Edwards % (Auto) Edwards # Eos # Lymph # (Auto) Edwards # (Auto) Eos # (Auto) Seg Neutrophils % Seg Neuts % (Manual) Baso # (Auto) Lymphocytes % (Manual) Monocytes % (Manual) Eosinophils % (Manual) Basophils % (Manual) Seg Neutrophils # Seg Neutrophils # Man Lymphocytes # (Manual) Monocytes # (Manual) Eosinophils # (Manual) Nucleated RBC % Basophils # (Manual) PT INR APTT Heparin Anti-Xa Level ABG pH POC ABG pO2 ABG pO2 65.7 L ABG HCO3 28.3 H ABG O2 Saturation 93.9 L ABG Base Excess 3.6 H POC ABG pCO2 ABG Hemoglobin 13.3 L ABG Oxyhemoglobin ABG Chloride ABG Glucose Oxyhemoglobin 91.5 L Sodium Potassium Chloride Carbon Dioxide BUN Creatinine Glucose POC Glucose 123 H 119 H Lactic Acid Calcium Phosphorus Magnesium AST ALT Lactate Dehydrogenase Total Bilirubin Direct Bilirubin CK-MB (CK-2) C-Reactive Protein NT-Pro-B Natriuret Pep Total Protein Albumin Arterial Blood Glucose Urine WBC (Auto) Urine Creatinine 11/30/19 11/30/19 11/30/19 04:17 04:17 04:56 WBC 13.4 H RBC Hgb Hct MCHC RDW 15.6 H MCV MCH Lymph % (Auto) Edwards % (Auto) Edwards # Eos # Lymph # (Auto) Edwards # (Auto) Eos # (Auto) Seg Neutrophils % Seg Neuts % (Manual) Baso # (Auto) Lymphocytes % (Manual) Monocytes % (Manual) Eosinophils % (Manual) Basophils % (Manual) Seg Neutrophils # Seg Neutrophils # Man Lymphocytes # (Manual) Monocytes # (Manual) Eosinophils # (Manual) Nucleated RBC % Basophils # (Manual) PT INR APTT Heparin Anti-Xa Level ABG pH POC ABG pO2 ABG pO2 56.3 L ABG HCO3 29.3 H ABG O2 Saturation 91.5 L ABG Base Excess 4.7 H POC ABG pCO2 ABG Hemoglobin 12.1 L ABG Oxyhemoglobin ABG Chloride ABG Glucose Oxyhemoglobin 89.2 L Sodium 147 H Potassium Chloride Carbon Dioxide BUN 30 H Creatinine Glucose 124 H POC Glucose Lactic Acid Calcium Phosphorus Magnesium AST ALT Lactate Dehydrogenase Total Bilirubin Direct Bilirubin CK-MB (CK-2) C-Reactive Protein NT-Pro-B Natriuret Pep Total Protein Albumin 3.8 L Arterial Blood Glucose Urine WBC (Auto) Urine Creatinine 11/30/19 11/30/19 11/30/19 05:51 11:54 18:17 WBC RBC Hgb Hct MCHC RDW MCV MCH Lymph % (Auto) Edwards % (Auto) Edwards # Eos # Lymph # (Auto) Edwards # (Auto) Eos # (Auto) Seg Neutrophils % Seg Neuts % (Manual) Baso # (Auto) Lymphocytes % (Manual) Monocytes % (Manual) Eosinophils % (Manual) Basophils % (Manual) Seg Neutrophils # Seg Neutrophils # Man Lymphocytes # (Manual) Monocytes # (Manual) Eosinophils # (Manual) Nucleated RBC % Basophils # (Manual) PT INR APTT Heparin Anti-Xa Level ABG pH POC ABG pO2 ABG pO2 ABG HCO3 ABG O2 Saturation ABG Base Excess POC ABG pCO2 ABG Hemoglobin ABG Oxyhemoglobin ABG Chloride ABG Glucose Oxyhemoglobin Sodium Potassium Chloride Carbon Dioxide BUN Creatinine Glucose POC Glucose 127 H 115 H 143 H Lactic Acid Calcium Phosphorus Magnesium AST ALT Lactate Dehydrogenase Total Bilirubin Direct Bilirubin CK-MB (CK-2) C-Reactive Protein NT-Pro-B Natriuret Pep Total Protein Albumin Arterial Blood Glucose Urine WBC (Auto) Urine Creatinine 12/01/19 12/01/19 12/01/19 01:18 05:22 12:16 WBC RBC Hgb Hct MCHC RDW MCV MCH Lymph % (Auto) Edwards % (Auto) Edwards # Eos # Lymph # (Auto) Edwards # (Auto) Eos # (Auto) Seg Neutrophils % Seg Neuts % (Manual) Baso # (Auto) Lymphocytes % (Manual) Monocytes % (Manual) Eosinophils % (Manual) Basophils % (Manual) Seg Neutrophils # Seg Neutrophils # Man Lymphocytes # (Manual) Monocytes # (Manual) Eosinophils # (Manual) Nucleated RBC % Basophils # (Manual) PT INR APTT Heparin Anti-Xa Level ABG pH POC ABG pO2 ABG pO2 ABG HCO3 ABG O2 Saturation ABG Base Excess POC ABG pCO2 ABG Hemoglobin ABG Oxyhemoglobin ABG Chloride ABG Glucose Oxyhemoglobin Sodium Potassium 3.5 L Chloride 107.8 H Carbon Dioxide BUN 37 H Creatinine Glucose 157 H POC Glucose 118 H 148 H Lactic Acid Calcium 8.2 L D Phosphorus Magnesium AST 48 H ALT 60 H Lactate Dehydrogenase 194 H Total Bilirubin Direct Bilirubin CK-MB (CK-2) C-Reactive Protein 8.50 H NT-Pro-B Natriuret Pep Total Protein 5.5 L Albumin 2.8 L Arterial Blood Glucose Urine WBC (Auto) Urine Creatinine 12/01/19 12/02/19 12/02/19 18:04 00:05 05:16 WBC 11.4 H RBC Hgb Hct MCHC RDW 15.9 H MCV MCH Lymph % (Auto) Edwards % (Auto) 9.9 H Edwards # 1.1 H Eos # Lymph # (Auto) Edwards # (Auto) Eos # (Auto) Seg Neutrophils % 70.3 H Seg Neuts % (Manual) Baso # (Auto) Lymphocytes % (Manual) Monocytes % (Manual) Eosinophils % (Manual) Basophils % (Manual) Seg Neutrophils # 8.0 H Seg Neutrophils # Man Lymphocytes # (Manual) Monocytes # (Manual) Eosinophils # (Manual) Nucleated RBC % Basophils # (Manual) PT INR APTT Heparin Anti-Xa Level ABG pH POC ABG pO2 ABG pO2 ABG HCO3 ABG O2 Saturation ABG Base Excess POC ABG pCO2 ABG Hemoglobin ABG Oxyhemoglobin ABG Chloride ABG Glucose Oxyhemoglobin Sodium Potassium Chloride Carbon Dioxide BUN Creatinine Glucose POC Glucose 143 H 107 H Lactic Acid Calcium Phosphorus Magnesium AST ALT Lactate Dehydrogenase Total Bilirubin Direct Bilirubin CK-MB (CK-2) C-Reactive Protein NT-Pro-B Natriuret Pep Total Protein Albumin Arterial Blood Glucose Urine WBC (Auto) Urine Creatinine 12/02/19 12/02/19 12/02/19 05:16 06:03 11:52 WBC RBC Hgb Hct MCHC RDW MCV MCH Lymph % (Auto) Edwards % (Auto) Edwards # Eos # Lymph # (Auto) Edwards # (Auto) Eos # (Auto) Seg Neutrophils % Seg Neuts % (Manual) Baso # (Auto) Lymphocytes % (Manual) Monocytes % (Manual) Eosinophils % (Manual) Basophils % (Manual) Seg Neutrophils # Seg Neutrophils # Man Lymphocytes # (Manual) Monocytes # (Manual) Eosinophils # (Manual) Nucleated RBC % Basophils # (Manual) PT INR APTT Heparin Anti-Xa Level ABG pH POC ABG pO2 ABG pO2 ABG HCO3 ABG O2 Saturation ABG Base Excess POC ABG pCO2 ABG Hemoglobin ABG Oxyhemoglobin ABG Chloride ABG Glucose Oxyhemoglobin Sodium 146 H Potassium Chloride Carbon Dioxide BUN 28 H Creatinine Glucose 123 H POC Glucose 110 H 152 H Lactic Acid Calcium Phosphorus Magnesium AST ALT Lactate Dehydrogenase Total Bilirubin Direct Bilirubin CK-MB (CK-2) C-Reactive Protein NT-Pro-B Natriuret Pep Total Protein Albumin Arterial Blood Glucose Urine WBC (Auto) Urine Creatinine 12/02/19 12/02/19 12/02/19 12:58 17:58 23:36 WBC RBC Hgb Hct MCHC RDW MCV MCH Lymph % (Auto) Edwards % (Auto) Edwards # Eos # Lymph # (Auto) Edwards # (Auto) Eos # (Auto) Seg Neutrophils % Seg Neuts % (Manual) Baso # (Auto) Lymphocytes % (Manual) Monocytes % (Manual) Eosinophils % (Manual) Basophils % (Manual) Seg Neutrophils # Seg Neutrophils # Man Lymphocytes # (Manual) Monocytes # (Manual) Eosinophils # (Manual) Nucleated RBC % Basophils # (Manual) PT INR APTT Heparin Anti-Xa Level ABG pH POC ABG pO2 78.1 L ABG pO2 ABG HCO3 ABG O2 Saturation ABG Base Excess POC ABG pCO2 ABG Hemoglobin ABG Oxyhemoglobin ABG Chloride ABG Glucose Oxyhemoglobin Sodium Potassium Chloride Carbon Dioxide BUN Creatinine Glucose POC Glucose 120 H 123 H Lactic Acid Calcium Phosphorus Magnesium AST ALT Lactate Dehydrogenase Total Bilirubin Direct Bilirubin CK-MB (CK-2) C-Reactive Protein NT-Pro-B Natriuret Pep Total Protein Albumin Arterial Blood Glucose Urine WBC (Auto) Urine Creatinine 12/03/19 12/03/19 12/03/19 06:03 06:14 11:46 WBC RBC Hgb Hct MCHC RDW MCV MCH Lymph % (Auto) Edwards % (Auto) Edwards # Eos # Lymph # (Auto) Edwards # (Auto) Eos # (Auto) Seg Neutrophils % Seg Neuts % (Manual) Baso # (Auto) Lymphocytes % (Manual) Monocytes % (Manual) Eosinophils % (Manual) Basophils % (Manual) Seg Neutrophils # Seg Neutrophils # Man Lymphocytes # (Manual) Monocytes # (Manual) Eosinophils # (Manual) Nucleated RBC % Basophils # (Manual) PT INR APTT Heparin Anti-Xa Level ABG pH POC ABG pO2 ABG pO2 ABG HCO3 ABG O2 Saturation ABG Base Excess POC ABG pCO2 ABG Hemoglobin ABG Oxyhemoglobin ABG Chloride ABG Glucose Oxyhemoglobin Sodium Potassium Chloride Carbon Dioxide BUN Creatinine Glucose POC Glucose 142 H 130 H Lactic Acid Calcium Phosphorus Magnesium AST ALT Lactate Dehydrogenase Total Bilirubin Direct Bilirubin CK-MB (CK-2) C-Reactive Protein NT-Pro-B Natriuret Pep Total Protein Albumin Arterial Blood Glucose Urine WBC (Auto) 8.0 H Urine Creatinine 12/03/19 12/03/19 12/04/19 15:50 17:39 00:04 WBC RBC Hgb Hct MCHC RDW MCV MCH Lymph % (Auto) Edwards % (Auto) Edwards # Eos # Lymph # (Auto) Edwards # (Auto) Eos # (Auto) Seg Neutrophils % Seg Neuts % (Manual) Baso # (Auto) Lymphocytes % (Manual) Monocytes % (Manual) Eosinophils % (Manual) Basophils % (Manual) Seg Neutrophils # Seg Neutrophils # Man Lymphocytes # (Manual) Monocytes # (Manual) Eosinophils # (Manual) Nucleated RBC % Basophils # (Manual) PT INR APTT Heparin Anti-Xa Level ABG pH POC ABG pO2 ABG pO2 ABG HCO3 ABG O2 Saturation ABG Base Excess POC ABG pCO2 ABG Hemoglobin ABG Oxyhemoglobin ABG Chloride ABG Glucose Oxyhemoglobin Sodium Potassium Chloride Carbon Dioxide BUN Creatinine Glucose POC Glucose 146 H 133 H Lactic Acid Calcium Phosphorus 2.40 L Magnesium AST ALT Lactate Dehydrogenase Total Bilirubin Direct Bilirubin CK-MB (CK-2) C-Reactive Protein NT-Pro-B Natriuret Pep Total Protein Albumin Arterial Blood Glucose Urine WBC (Auto) Urine Creatinine 12/04/19 12/04/19 12/04/19 03:58 03:58 05:22 WBC 12.5 H RBC Hgb 11.2 L Hct 35.2 L MCHC RDW 16.0 H MCV MCH Lymph % (Auto) Edwards % (Auto) 9.6 H Edwards # 1.2 H Eos # 0.5 H Lymph # (Auto) Edwards # (Auto) Eos # (Auto) Seg Neutrophils % Seg Neuts % (Manual) Baso # (Auto) Lymphocytes % (Manual) Monocytes % (Manual) Eosinophils % (Manual) Basophils % (Manual) Seg Neutrophils # 8.6 H Seg Neutrophils # Man Lymphocytes # (Manual) Monocytes # (Manual) Eosinophils # (Manual) Nucleated RBC % Basophils # (Manual) PT INR APTT Heparin Anti-Xa Level ABG pH POC ABG pO2 ABG pO2 ABG HCO3 ABG O2 Saturation ABG Base Excess POC ABG pCO2 ABG Hemoglobin ABG Oxyhemoglobin ABG Chloride ABG Glucose Oxyhemoglobin Sodium 146 H Potassium Chloride 108.6 H Carbon Dioxide BUN 30 H Creatinine 0.7 L Glucose 121 H POC Glucose 132 H Lactic Acid Calcium Phosphorus Magnesium AST ALT Lactate Dehydrogenase Total Bilirubin Direct Bilirubin CK-MB (CK-2) C-Reactive Protein NT-Pro-B Natriuret Pep Total Protein Albumin Arterial Blood Glucose Urine WBC (Auto) Urine Creatinine 12/04/19 12/04/19 12/05/19 13:26 18:43 00:19 WBC RBC Hgb Hct MCHC RDW MCV MCH Lymph % (Auto) Edwards % (Auto) Edwards # Eos # Lymph # (Auto) Edwards # (Auto) Eos # (Auto) Seg Neutrophils % Seg Neuts % (Manual) Baso # (Auto) Lymphocytes % (Manual) Monocytes % (Manual) Eosinophils % (Manual) Basophils % (Manual) Seg Neutrophils # Seg Neutrophils # Man Lymphocytes # (Manual) Monocytes # (Manual) Eosinophils # (Manual) Nucleated RBC % Basophils # (Manual) PT INR APTT Heparin Anti-Xa Level ABG pH POC ABG pO2 ABG pO2 ABG HCO3 ABG O2 Saturation ABG Base Excess POC ABG pCO2 ABG Hemoglobin ABG Oxyhemoglobin ABG Chloride ABG Glucose Oxyhemoglobin Sodium Potassium Chloride Carbon Dioxide BUN Creatinine Glucose POC Glucose 185 H 156 H 150 H Lactic Acid Calcium Phosphorus Magnesium AST ALT Lactate Dehydrogenase Total Bilirubin Direct Bilirubin CK-MB (CK-2) C-Reactive Protein NT-Pro-B Natriuret Pep Total Protein Albumin Arterial Blood Glucose Urine WBC (Auto) Urine Creatinine 12/05/19 12/05/19 12/05/19 03:37 03:37 05:14 WBC 16.3 H RBC Hgb 11.4 L Hct MCHC RDW 15.6 H MCV MCH Lymph % (Auto) 9.9 L Edwards % (Auto) 9.7 H Edwards # 1.6 H Eos # Lymph # (Auto) Edwards # (Auto) Eos # (Auto) Seg Neutrophils % 78.0 H Seg Neuts % (Manual) Baso # (Auto) Lymphocytes % (Manual) Monocytes % (Manual) Eosinophils % (Manual) Basophils % (Manual) Seg Neutrophils # 12.7 H Seg Neutrophils # Man Lymphocytes # (Manual) Monocytes # (Manual) Eosinophils # (Manual) Nucleated RBC % Basophils # (Manual) PT INR APTT Heparin Anti-Xa Level ABG pH POC ABG pO2 ABG pO2 ABG HCO3 ABG O2 Saturation ABG Base Excess POC ABG pCO2 ABG Hemoglobin ABG Oxyhemoglobin ABG Chloride ABG Glucose Oxyhemoglobin Sodium 146 H Potassium Chloride 107.2 H Carbon Dioxide BUN 27 H Creatinine 0.7 L Glucose 171 H POC Glucose 168 H Lactic Acid Calcium Phosphorus Magnesium AST ALT Lactate Dehydrogenase Total Bilirubin Direct Bilirubin CK-MB (CK-2) C-Reactive Protein NT-Pro-B Natriuret Pep Total Protein Albumin Arterial Blood Glucose Urine WBC (Auto) Urine Creatinine 12/05/19 12/05/19 12/05/19 12:31 18:10 23:58 WBC RBC Hgb Hct MCHC RDW MCV MCH Lymph % (Auto) Edwards % (Auto) Edwards # Eos # Lymph # (Auto) Edwards # (Auto) Eos # (Auto) Seg Neutrophils % Seg Neuts % (Manual) Baso # (Auto) Lymphocytes % (Manual) Monocytes % (Manual) Eosinophils % (Manual) Basophils % (Manual) Seg Neutrophils # Seg Neutrophils # Man Lymphocytes # (Manual) Monocytes # (Manual) Eosinophils # (Manual) Nucleated RBC % Basophils # (Manual) PT INR APTT Heparin Anti-Xa Level ABG pH POC ABG pO2 ABG pO2 ABG HCO3 ABG O2 Saturation ABG Base Excess POC ABG pCO2 ABG Hemoglobin ABG Oxyhemoglobin ABG Chloride ABG Glucose Oxyhemoglobin Sodium Potassium Chloride Carbon Dioxide BUN Creatinine Glucose POC Glucose 159 H 198 H 115 H Lactic Acid Calcium Phosphorus Magnesium AST ALT Lactate Dehydrogenase Total Bilirubin Direct Bilirubin CK-MB (CK-2) C-Reactive Protein NT-Pro-B Natriuret Pep Total Protein Albumin Arterial Blood Glucose Urine WBC (Auto) Urine Creatinine 12/06/19 12/06/19 12/06/19 05:24 05:24 05:25 WBC 14.9 H RBC Hgb 10.8 L Hct 34.0 L MCHC RDW 15.6 H MCV MCH Lymph % (Auto) 10.7 L Edwards % (Auto) 8.3 H Edwards # 1.2 H Eos # Lymph # (Auto) Edwards # (Auto) Eos # (Auto) Seg Neutrophils % 78.7 H Seg Neuts % (Manual) Baso # (Auto) Lymphocytes % (Manual) Monocytes % (Manual) Eosinophils % (Manual) Basophils % (Manual) Seg Neutrophils # 11.7 H Seg Neutrophils # Man Lymphocytes # (Manual) Monocytes # (Manual) Eosinophils # (Manual) Nucleated RBC % Basophils # (Manual) PT INR APTT Heparin Anti-Xa Level ABG pH POC ABG pO2 ABG pO2 ABG HCO3 ABG O2 Saturation ABG Base Excess POC ABG pCO2 ABG Hemoglobin ABG Oxyhemoglobin ABG Chloride ABG Glucose Oxyhemoglobin Sodium 148 H Potassium 5.1 H Chloride 107.6 H Carbon Dioxide BUN 27 H Creatinine 0.7 L Glucose 155 H POC Glucose 157 H Lactic Acid Calcium Phosphorus Magnesium AST ALT Lactate Dehydrogenase Total Bilirubin Direct Bilirubin CK-MB (CK-2) C-Reactive Protein NT-Pro-B Natriuret Pep Total Protein Albumin Arterial Blood Glucose Urine WBC (Auto) Urine Creatinine 12/07/19 12/07/19 12/07/19 00:13 05:34 11:33 WBC RBC Hgb Hct MCHC RDW MCV MCH Lymph % (Auto) Edwards % (Auto) Edwards # Eos # Lymph # (Auto) Edwards # (Auto) Eos # (Auto) Seg Neutrophils % Seg Neuts % (Manual) Baso # (Auto) Lymphocytes % (Manual) Monocytes % (Manual) Eosinophils % (Manual) Basophils % (Manual) Seg Neutrophils # Seg Neutrophils # Man Lymphocytes # (Manual) Monocytes # (Manual) Eosinophils # (Manual) Nucleated RBC % Basophils # (Manual) PT INR APTT Heparin Anti-Xa Level ABG pH POC ABG pO2 ABG pO2 ABG HCO3 ABG O2 Saturation ABG Base Excess POC ABG pCO2 ABG Hemoglobin ABG Oxyhemoglobin ABG Chloride ABG Glucose Oxyhemoglobin Sodium Potassium Chloride Carbon Dioxide BUN Creatinine Glucose POC Glucose 142 H 111 H 169 H Lactic Acid Calcium Phosphorus Magnesium AST ALT Lactate Dehydrogenase Total Bilirubin Direct Bilirubin CK-MB (CK-2) C-Reactive Protein NT-Pro-B Natriuret Pep Total Protein Albumin Arterial Blood Glucose Urine WBC (Auto) Urine Creatinine 12/07/19 12/07/19 12/07/19 12:41 13:25 18:19 WBC 12.4 H RBC 3.53 L Hgb 10.2 L Hct 32.1 L MCHC RDW 15.3 H MCV MCH Lymph % (Auto) 10.6 L Edwards % (Auto) 7.8 H Edwards # 1.0 H Eos # Lymph # (Auto) Edwards # (Auto) Eos # (Auto) Seg Neutrophils % 77.6 H Seg Neuts % (Manual) Baso # (Auto) Lymphocytes % (Manual) Monocytes % (Manual) Eosinophils % (Manual) Basophils % (Manual) Seg Neutrophils # 9.6 H Seg Neutrophils # Man Lymphocytes # (Manual) Monocytes # (Manual) Eosinophils # (Manual) Nucleated RBC % Basophils # (Manual) PT INR APTT Heparin Anti-Xa Level ABG pH POC ABG pO2 ABG pO2 ABG HCO3 ABG O2 Saturation ABG Base Excess POC ABG pCO2 ABG Hemoglobin ABG Oxyhemoglobin ABG Chloride ABG Glucose Oxyhemoglobin Sodium 149 H Potassium Chloride 108.4 H Carbon Dioxide BUN 26 H Creatinine 0.6 L Glucose 149 H POC Glucose 164 H Lactic Acid Calcium Phosphorus Magnesium 2.60 H AST 121 H ALT 145 H Lactate Dehydrogenase Total Bilirubin Direct Bilirubin CK-MB (CK-2) C-Reactive Protein NT-Pro-B Natriuret Pep Total Protein Albumin 2.6 L Arterial Blood Glucose Urine WBC (Auto) Urine Creatinine 12/07/19 12/08/19 12/08/19 22:25 00:02 03:55 WBC 13.3 H RBC 3.40 L Hgb 9.7 L Hct 30.8 L MCHC 31 L RDW 15.5 H MCV MCH Lymph % (Auto) Edwards % (Auto) 8.1 H Edwards # 1.1 H Eos # Lymph # (Auto) Edwards # (Auto) Eos # (Auto) Seg Neutrophils % 73.0 H Seg Neuts % (Manual) Baso # (Auto) Lymphocytes % (Manual) Monocytes % (Manual) Eosinophils % (Manual) Basophils % (Manual) Seg Neutrophils # 9.7 H Seg Neutrophils # Man Lymphocytes # (Manual) Monocytes # (Manual) Eosinophils # (Manual) Nucleated RBC % Basophils # (Manual) PT INR APTT Heparin Anti-Xa Level 0.12 L ABG pH POC ABG pO2 ABG pO2 ABG HCO3 ABG O2 Saturation ABG Base Excess POC ABG pCO2 ABG Hemoglobin ABG Oxyhemoglobin ABG Chloride ABG Glucose Oxyhemoglobin Sodium Potassium Chloride Carbon Dioxide BUN Creatinine Glucose POC Glucose 151 H Lactic Acid Calcium Phosphorus Magnesium AST ALT Lactate Dehydrogenase Total Bilirubin Direct Bilirubin CK-MB (CK-2) C-Reactive Protein NT-Pro-B Natriuret Pep Total Protein Albumin Arterial Blood Glucose Urine WBC (Auto) Urine Creatinine 12/08/19 12/08/19 12/08/19 03:55 05:21 06:01 WBC RBC Hgb Hct MCHC RDW MCV MCH Lymph % (Auto) Edwards % (Auto) Edwards # Eos # Lymph # (Auto) Edwards # (Auto) Eos # (Auto) Seg Neutrophils % Seg Neuts % (Manual) Baso # (Auto) Lymphocytes % (Manual) Monocytes % (Manual) Eosinophils % (Manual) Basophils % (Manual) Seg Neutrophils # Seg Neutrophils # Man Lymphocytes # (Manual) Monocytes # (Manual) Eosinophils # (Manual) Nucleated RBC % Basophils # (Manual) PT INR APTT Heparin Anti-Xa Level 0.20 L ABG pH POC ABG pO2 ABG pO2 ABG HCO3 ABG O2 Saturation ABG Base Excess POC ABG pCO2 ABG Hemoglobin ABG Oxyhemoglobin ABG Chloride ABG Glucose Oxyhemoglobin Sodium 149 H Potassium Chloride 108.0 H Carbon Dioxide BUN 28 H Creatinine 0.6 L Glucose 144 H POC Glucose 143 H Lactic Acid Calcium Phosphorus Magnesium AST 98 H ALT 145 H Lactate Dehydrogenase Total Bilirubin Direct Bilirubin CK-MB (CK-2) C-Reactive Protein NT-Pro-B Natriuret Pep Total Protein 6.0 L Albumin 2.4 L Arterial Blood Glucose Urine WBC (Auto) Urine Creatinine 12/08/19 12/08/19 12/08/19 12:08 18:11 23:53 WBC RBC Hgb Hct MCHC RDW MCV MCH Lymph % (Auto) Edwards % (Auto) Edwards # Eos # Lymph # (Auto) Edwards # (Auto) Eos # (Auto) Seg Neutrophils % Seg Neuts % (Manual) Baso # (Auto) Lymphocytes % (Manual) Monocytes % (Manual) Eosinophils % (Manual) Basophils % (Manual) Seg Neutrophils # Seg Neutrophils # Man Lymphocytes # (Manual) Monocytes # (Manual) Eosinophils # (Manual) Nucleated RBC % Basophils # (Manual) PT INR APTT Heparin Anti-Xa Level ABG pH POC ABG pO2 ABG pO2 ABG HCO3 ABG O2 Saturation ABG Base Excess POC ABG pCO2 ABG Hemoglobin ABG Oxyhemoglobin ABG Chloride ABG Glucose Oxyhemoglobin Sodium Potassium Chloride Carbon Dioxide BUN Creatinine Glucose POC Glucose 172 H 122 H 162 H Lactic Acid Calcium Phosphorus Magnesium AST ALT Lactate Dehydrogenase Total Bilirubin Direct Bilirubin CK-MB (CK-2) C-Reactive Protein NT-Pro-B Natriuret Pep Total Protein Albumin Arterial Blood Glucose Urine WBC (Auto) Urine Creatinine 12/09/19 12/09/19 12/09/19 04:03 04:03 05:53 WBC RBC Hgb 9.1 L Hct 28.9 L MCHC RDW MCV MCH Lymph % (Auto) Edwards % (Auto) Edwards # Eos # Lymph # (Auto) Edwards # (Auto) Eos # (Auto) Seg Neutrophils % Seg Neuts % (Manual) Baso # (Auto) Lymphocytes % (Manual) Monocytes % (Manual) Eosinophils % (Manual) Basophils % (Manual) Seg Neutrophils # Seg Neutrophils # Man Lymphocytes # (Manual) Monocytes # (Manual) Eosinophils # (Manual) Nucleated RBC % Basophils # (Manual) PT INR APTT Heparin Anti-Xa Level 0.15 L ABG pH POC ABG pO2 ABG pO2 ABG HCO3 ABG O2 Saturation ABG Base Excess POC ABG pCO2 ABG Hemoglobin ABG Oxyhemoglobin ABG Chloride ABG Glucose Oxyhemoglobin Sodium Potassium Chloride Carbon Dioxide BUN Creatinine Glucose POC Glucose 124 H Lactic Acid Calcium Phosphorus Magnesium AST ALT Lactate Dehydrogenase Total Bilirubin Direct Bilirubin CK-MB (CK-2) C-Reactive Protein NT-Pro-B Natriuret Pep Total Protein Albumin Arterial Blood Glucose Urine WBC (Auto) Urine Creatinine 12/09/19 12/09/19 12/10/19 09:43 12:41 00:13 WBC RBC Hgb Hct MCHC RDW MCV MCH Lymph % (Auto) Edwards % (Auto) Edwards # Eos # Lymph # (Auto) Edwards # (Auto) Eos # (Auto) Seg Neutrophils % Seg Neuts % (Manual) Baso # (Auto) Lymphocytes % (Manual) Monocytes % (Manual) Eosinophils % (Manual) Basophils % (Manual) Seg Neutrophils # Seg Neutrophils # Man Lymphocytes # (Manual) Monocytes # (Manual) Eosinophils # (Manual) Nucleated RBC % Basophils # (Manual) PT INR APTT Heparin Anti-Xa Level ABG pH POC ABG pO2 ABG pO2 ABG HCO3 ABG O2 Saturation ABG Base Excess POC ABG pCO2 ABG Hemoglobin ABG Oxyhemoglobin ABG Chloride ABG Glucose Oxyhemoglobin Sodium Potassium Chloride Carbon Dioxide BUN 25 H Creatinine 0.6 L Glucose 131 H POC Glucose 109 H 120 H Lactic Acid Calcium Phosphorus Magnesium AST ALT Lactate Dehydrogenase Total Bilirubin Direct Bilirubin CK-MB (CK-2) C-Reactive Protein NT-Pro-B Natriuret Pep Total Protein Albumin Arterial Blood Glucose Urine WBC (Auto) Urine Creatinine 12/10/19 12/10/19 12/10/19 04:14 04:14 12:00 WBC 13.3 H RBC 3.34 L Hgb 9.6 L Hct 30.4 L MCHC RDW 15.4 H MCV MCH Lymph % (Auto) Edwards % (Auto) Edwards # Eos # Lymph # (Auto) Edwards # (Auto) Eos # (Auto) Seg Neutrophils % Seg Neuts % (Manual) 75.0 H Baso # (Auto) Lymphocytes % (Manual) 13.0 L Monocytes % (Manual) 8.0 H Eosinophils % (Manual) Basophils % (Manual) 2.0 H Seg Neutrophils # Seg Neutrophils # Man 10.0 H Lymphocytes # (Manual) Monocytes # (Manual) 1.1 H Eosinophils # (Manual) Nucleated RBC % Basophils # (Manual) 0.3 H PT INR APTT Heparin Anti-Xa Level ABG pH POC ABG pO2 ABG pO2 ABG HCO3 ABG O2 Saturation ABG Base Excess POC ABG pCO2 ABG Hemoglobin ABG Oxyhemoglobin ABG Chloride ABG Glucose Oxyhemoglobin Sodium 147 H Potassium Chloride 108.3 H Carbon Dioxide BUN 21 H Creatinine 0.6 L Glucose 104 H POC Glucose 133 H Lactic Acid Calcium Phosphorus Magnesium AST ALT Lactate Dehydrogenase Total Bilirubin Direct Bilirubin CK-MB (CK-2) C-Reactive Protein NT-Pro-B Natriuret Pep Total Protein Albumin Arterial Blood Glucose Urine WBC (Auto) Urine Creatinine 12/10/19 12/10/19 12/11/19 18:44 21:20 00:08 WBC 14.9 H RBC 3.36 L Hgb 9.6 L Hct 30.5 L MCHC RDW 15.4 H MCV MCH Lymph % (Auto) Edwards % (Auto) Edwards # Eos # Lymph # (Auto) Edwards # (Auto) Eos # (Auto) Seg Neutrophils % Seg Neuts % (Manual) Baso # (Auto) Lymphocytes % (Manual) Monocytes % (Manual) Eosinophils % (Manual) Basophils % (Manual) Seg Neutrophils # Seg Neutrophils # Man Lymphocytes # (Manual) Monocytes # (Manual) Eosinophils # (Manual) Nucleated RBC % Basophils # (Manual) PT INR APTT Heparin Anti-Xa Level ABG pH POC ABG pO2 ABG pO2 ABG HCO3 ABG O2 Saturation ABG Base Excess POC ABG pCO2 ABG Hemoglobin ABG Oxyhemoglobin ABG Chloride ABG Glucose Oxyhemoglobin Sodium Potassium Chloride Carbon Dioxide BUN Creatinine Glucose POC Glucose 119 H 134 H Lactic Acid Calcium Phosphorus Magnesium AST ALT Lactate Dehydrogenase Total Bilirubin Direct Bilirubin CK-MB (CK-2) C-Reactive Protein NT-Pro-B Natriuret Pep Total Protein Albumin Arterial Blood Glucose Urine WBC (Auto) Urine Creatinine 12/11/19 12/11/19 12/11/19 03:54 07:28 08:36 WBC 11.9 H RBC 3.25 L Hgb 9.6 L Hct 29.2 L MCHC RDW 15.7 H MCV MCH Lymph % (Auto) Edwards % (Auto) Edwards # Eos # Lymph # (Auto) Edwards # (Auto) Eos # (Auto) Seg Neutrophils % Seg Neuts % (Manual) Baso # (Auto) Lymphocytes % (Manual) Monocytes % (Manual) Eosinophils % (Manual) Basophils % (Manual) Seg Neutrophils # Seg Neutrophils # Man Lymphocytes # (Manual) Monocytes # (Manual) Eosinophils # (Manual) Nucleated RBC % Basophils # (Manual) PT INR APTT Heparin Anti-Xa Level 0.10 L 0.16 L ABG pH POC ABG pO2 ABG pO2 ABG HCO3 ABG O2 Saturation ABG Base Excess POC ABG pCO2 ABG Hemoglobin ABG Oxyhemoglobin ABG Chloride ABG Glucose Oxyhemoglobin Sodium Potassium Chloride Carbon Dioxide BUN Creatinine Glucose POC Glucose Lactic Acid Calcium Phosphorus Magnesium AST ALT Lactate Dehydrogenase Total Bilirubin Direct Bilirubin CK-MB (CK-2) C-Reactive Protein NT-Pro-B Natriuret Pep Total Protein Albumin Arterial Blood Glucose Urine WBC (Auto) Urine Creatinine 12/11/19 12/11/19 12/11/19 08:36 11:45 17:15 WBC RBC Hgb Hct MCHC RDW MCV MCH Lymph % (Auto) Edwards % (Auto) Edwards # Eos # Lymph # (Auto) Edwards # (Auto) Eos # (Auto) Seg Neutrophils % Seg Neuts % (Manual) Baso # (Auto) Lymphocytes % (Manual) Monocytes % (Manual) Eosinophils % (Manual) Basophils % (Manual) Seg Neutrophils # Seg Neutrophils # Man Lymphocytes # (Manual) Monocytes # (Manual) Eosinophils # (Manual) Nucleated RBC % Basophils # (Manual) PT INR APTT Heparin Anti-Xa Level ABG pH POC ABG pO2 ABG pO2 ABG HCO3 ABG O2 Saturation ABG Base Excess POC ABG pCO2 ABG Hemoglobin ABG Oxyhemoglobin ABG Chloride ABG Glucose Oxyhemoglobin Sodium Potassium Chloride Carbon Dioxide BUN Creatinine 0.5 L Glucose 128 H POC Glucose 136 H 109 H Lactic Acid Calcium Phosphorus Magnesium AST ALT Lactate Dehydrogenase Total Bilirubin Direct Bilirubin CK-MB (CK-2) C-Reactive Protein NT-Pro-B Natriuret Pep Total Protein Albumin Arterial Blood Glucose Urine WBC (Auto) Urine Creatinine 12/12/19 12/12/19 12/12/19 00:03 05:53 05:53 WBC RBC Hgb 8.8 L Hct 27.6 L MCHC RDW MCV MCH Lymph % (Auto) Edwards % (Auto) Edwards # Eos # Lymph # (Auto) Edwards # (Auto) Eos # (Auto) Seg Neutrophils % Seg Neuts % (Manual) Baso # (Auto) Lymphocytes % (Manual) Monocytes % (Manual) Eosinophils % (Manual) Basophils % (Manual) Seg Neutrophils # Seg Neutrophils # Man Lymphocytes # (Manual) Monocytes # (Manual) Eosinophils # (Manual) Nucleated RBC % Basophils # (Manual) PT INR APTT Heparin Anti-Xa Level 0.22 L ABG pH POC ABG pO2 ABG pO2 ABG HCO3 ABG O2 Saturation ABG Base Excess POC ABG pCO2 ABG Hemoglobin ABG Oxyhemoglobin ABG Chloride ABG Glucose Oxyhemoglobin Sodium Potassium Chloride Carbon Dioxide BUN Creatinine Glucose POC Glucose 116 H Lactic Acid Calcium Phosphorus Magnesium AST ALT Lactate Dehydrogenase Total Bilirubin Direct Bilirubin CK-MB (CK-2) C-Reactive Protein NT-Pro-B Natriuret Pep Total Protein Albumin Arterial Blood Glucose Urine WBC (Auto) Urine Creatinine 12/12/19 12/12/19 12/12/19 09:38 12:18 17:44 WBC RBC Hgb Hct MCHC RDW MCV MCH Lymph % (Auto) Edwards % (Auto) Edwards # Eos # Lymph # (Auto) Edwards # (Auto) Eos # (Auto) Seg Neutrophils % Seg Neuts % (Manual) Baso # (Auto) Lymphocytes % (Manual) Monocytes % (Manual) Eosinophils % (Manual) Basophils % (Manual) Seg Neutrophils # Seg Neutrophils # Man Lymphocytes # (Manual) Monocytes # (Manual) Eosinophils # (Manual) Nucleated RBC % Basophils # (Manual) PT INR APTT Heparin Anti-Xa Level ABG pH POC ABG pO2 ABG pO2 ABG HCO3 ABG O2 Saturation ABG Base Excess POC ABG pCO2 ABG Hemoglobin ABG Oxyhemoglobin ABG Chloride ABG Glucose Oxyhemoglobin Sodium Potassium Chloride Carbon Dioxide BUN Creatinine Glucose POC Glucose 115 H 146 H 146 H Lactic Acid Calcium Phosphorus Magnesium AST ALT Lactate Dehydrogenase Total Bilirubin Direct Bilirubin CK-MB (CK-2) C-Reactive Protein NT-Pro-B Natriuret Pep Total Protein Albumin Arterial Blood Glucose Urine WBC (Auto) Urine Creatinine 12/12/19 12/13/19 12/13/19 23:33 05:32 05:32 WBC 13.1 H RBC 3.27 L Hgb 9.5 L Hct 29.3 L MCHC RDW 15.6 H MCV MCH Lymph % (Auto) Edwards % (Auto) Edwards # Eos # Lymph # (Auto) Edwards # (Auto) Eos # (Auto) Seg Neutrophils % Seg Neuts % (Manual) 74.0 H Baso # (Auto) Lymphocytes % (Manual) 8.0 L Monocytes % (Manual) 9.0 H Eosinophils % (Manual) 5.0 H Basophils % (Manual) Seg Neutrophils # Seg Neutrophils # Man 9.7 H Lymphocytes # (Manual) 1.0 L Monocytes # (Manual) 1.2 H Eosinophils # (Manual) 0.7 H Nucleated RBC % Basophils # (Manual) PT INR APTT Heparin Anti-Xa Level 0.20 L ABG pH POC ABG pO2 ABG pO2 ABG HCO3 ABG O2 Saturation ABG Base Excess POC ABG pCO2 ABG Hemoglobin ABG Oxyhemoglobin ABG Chloride ABG Glucose Oxyhemoglobin Sodium Potassium Chloride Carbon Dioxide BUN Creatinine Glucose POC Glucose 126 H Lactic Acid Calcium Phosphorus Magnesium AST ALT Lactate Dehydrogenase Total Bilirubin Direct Bilirubin CK-MB (CK-2) C-Reactive Protein NT-Pro-B Natriuret Pep Total Protein Albumin Arterial Blood Glucose Urine WBC (Auto) Urine Creatinine 12/13/19 12/13/19 12/13/19 05:32 05:46 11:57 WBC RBC Hgb Hct MCHC RDW MCV MCH Lymph % (Auto) Edwards % (Auto) Edwards # Eos # Lymph # (Auto) Edwards # (Auto) Eos # (Auto) Seg Neutrophils % Seg Neuts % (Manual) Baso # (Auto) Lymphocytes % (Manual) Monocytes % (Manual) Eosinophils % (Manual) Basophils % (Manual) Seg Neutrophils # Seg Neutrophils # Man Lymphocytes # (Manual) Monocytes # (Manual) Eosinophils # (Manual) Nucleated RBC % Basophils # (Manual) PT INR APTT Heparin Anti-Xa Level ABG pH POC ABG pO2 ABG pO2 ABG HCO3 ABG O2 Saturation ABG Base Excess POC ABG pCO2 ABG Hemoglobin ABG Oxyhemoglobin ABG Chloride ABG Glucose Oxyhemoglobin Sodium Potassium Chloride Carbon Dioxide 31 H BUN Creatinine 0.6 L Glucose 114 H POC Glucose 118 H 133 H Lactic Acid Calcium Phosphorus Magnesium AST ALT Lactate Dehydrogenase Total Bilirubin Direct Bilirubin CK-MB (CK-2) C-Reactive Protein NT-Pro-B Natriuret Pep Total Protein Albumin Arterial Blood Glucose Urine WBC (Auto) Urine Creatinine 12/13/19 12/13/19 12/14/19 17:44 23:46 05:32 WBC RBC Hgb Hct MCHC RDW MCV MCH Lymph % (Auto) Edwards % (Auto) Edwards # Eos # Lymph # (Auto) Edwards # (Auto) Eos # (Auto) Seg Neutrophils % Seg Neuts % (Manual) Baso # (Auto) Lymphocytes % (Manual) Monocytes % (Manual) Eosinophils % (Manual) Basophils % (Manual) Seg Neutrophils # Seg Neutrophils # Man Lymphocytes # (Manual) Monocytes # (Manual) Eosinophils # (Manual) Nucleated RBC % Basophils # (Manual) PT INR APTT Heparin Anti-Xa Level ABG pH POC ABG pO2 ABG pO2 ABG HCO3 ABG O2 Saturation ABG Base Excess POC ABG pCO2 ABG Hemoglobin ABG Oxyhemoglobin ABG Chloride ABG Glucose Oxyhemoglobin Sodium Potassium Chloride Carbon Dioxide BUN Creatinine Glucose POC Glucose 161 H 126 H 139 H Lactic Acid Calcium Phosphorus Magnesium AST ALT Lactate Dehydrogenase Total Bilirubin Direct Bilirubin CK-MB (CK-2) C-Reactive Protein NT-Pro-B Natriuret Pep Total Protein Albumin Arterial Blood Glucose Urine WBC (Auto) Urine Creatinine 12/14/19 12/14/19 12/14/19 06:03 06:03 09:37 WBC RBC Hgb 9.6 L Hct 30.4 L MCHC RDW MCV MCH Lymph % (Auto) Edwards % (Auto) Edwards # Eos # Lymph # (Auto) Edwards # (Auto) Eos # (Auto) Seg Neutrophils % Seg Neuts % (Manual) Baso # (Auto) Lymphocytes % (Manual) Monocytes % (Manual) Eosinophils % (Manual) Basophils % (Manual) Seg Neutrophils # Seg Neutrophils # Man Lymphocytes # (Manual) Monocytes # (Manual) Eosinophils # (Manual) Nucleated RBC % Basophils # (Manual) PT INR APTT Heparin Anti-Xa Level 0.24 L ABG pH POC ABG pO2 ABG pO2 ABG HCO3 ABG O2 Saturation ABG Base Excess POC ABG pCO2 ABG Hemoglobin ABG Oxyhemoglobin ABG Chloride ABG Glucose Oxyhemoglobin Sodium Potassium Chloride Carbon Dioxide BUN Creatinine 0.6 L Glucose 162 H POC Glucose Lactic Acid Calcium Phosphorus Magnesium AST 71 H ALT 118 H Lactate Dehydrogenase Total Bilirubin Direct Bilirubin CK-MB (CK-2) C-Reactive Protein NT-Pro-B Natriuret Pep Total Protein 6.2 L Albumin 2.3 L Arterial Blood Glucose Urine WBC (Auto) Urine Creatinine 12/14/19 12/14/19 12/15/19 12:06 18:18 00:19 WBC RBC Hgb Hct MCHC RDW MCV MCH Lymph % (Auto) Edwards % (Auto) Edwards # Eos # Lymph # (Auto) Edwards # (Auto) Eos # (Auto) Seg Neutrophils % Seg Neuts % (Manual) Baso # (Auto) Lymphocytes % (Manual) Monocytes % (Manual) Eosinophils % (Manual) Basophils % (Manual) Seg Neutrophils # Seg Neutrophils # Man Lymphocytes # (Manual) Monocytes # (Manual) Eosinophils # (Manual) Nucleated RBC % Basophils # (Manual) PT INR APTT Heparin Anti-Xa Level ABG pH POC ABG pO2 ABG pO2 ABG HCO3 ABG O2 Saturation ABG Base Excess POC ABG pCO2 ABG Hemoglobin ABG Oxyhemoglobin ABG Chloride ABG Glucose Oxyhemoglobin Sodium Potassium Chloride Carbon Dioxide BUN Creatinine Glucose POC Glucose 147 H 166 H 123 H Lactic Acid Calcium Phosphorus Magnesium AST ALT Lactate Dehydrogenase Total Bilirubin Direct Bilirubin CK-MB (CK-2) C-Reactive Protein NT-Pro-B Natriuret Pep Total Protein Albumin Arterial Blood Glucose Urine WBC (Auto) Urine Creatinine 12/15/19 12/15/19 12/15/19 05:28 05:29 05:29 WBC 14.9 H RBC 3.19 L Hgb 9.1 L Hct 28.7 L MCHC RDW 16.0 H MCV MCH Lymph % (Auto) Edwards % (Auto) Edwards # Eos # Lymph # (Auto) Edwards # (Auto) Eos # (Auto) Seg Neutrophils % Seg Neuts % (Manual) Baso # (Auto) Lymphocytes % (Manual) Monocytes % (Manual) Eosinophils % (Manual) Basophils % (Manual) Seg Neutrophils # Seg Neutrophils # Man Lymphocytes # (Manual) Monocytes # (Manual) Eosinophils # (Manual) Nucleated RBC % Basophils # (Manual) PT INR APTT Heparin Anti-Xa Level 0.19 L ABG pH POC ABG pO2 ABG pO2 ABG HCO3 ABG O2 Saturation ABG Base Excess POC ABG pCO2 ABG Hemoglobin ABG Oxyhemoglobin ABG Chloride ABG Glucose Oxyhemoglobin Sodium Potassium Chloride Carbon Dioxide BUN Creatinine 0.6 L Glucose 110 H POC Glucose Lactic Acid Calcium Phosphorus Magnesium AST ALT Lactate Dehydrogenase Total Bilirubin Direct Bilirubin CK-MB (CK-2) C-Reactive Protein NT-Pro-B Natriuret Pep Total Protein Albumin Arterial Blood Glucose Urine WBC (Auto) Urine Creatinine 12/15/19 12/15/19 12/15/19 05:53 11:50 17:26 WBC RBC Hgb Hct MCHC RDW MCV MCH Lymph % (Auto) Edwards % (Auto) Edwards # Eos # Lymph # (Auto) Edwards # (Auto) Eos # (Auto) Seg Neutrophils % Seg Neuts % (Manual) Baso # (Auto) Lymphocytes % (Manual) Monocytes % (Manual) Eosinophils % (Manual) Basophils % (Manual) Seg Neutrophils # Seg Neutrophils # Man Lymphocytes # (Manual) Monocytes # (Manual) Eosinophils # (Manual) Nucleated RBC % Basophils # (Manual) PT INR APTT Heparin Anti-Xa Level ABG pH POC ABG pO2 ABG pO2 ABG HCO3 ABG O2 Saturation ABG Base Excess POC ABG pCO2 ABG Hemoglobin ABG Oxyhemoglobin ABG Chloride ABG Glucose Oxyhemoglobin Sodium Potassium Chloride Carbon Dioxide BUN Creatinine Glucose POC Glucose 119 H 132 H 128 H Lactic Acid Calcium Phosphorus Magnesium AST ALT Lactate Dehydrogenase Total Bilirubin Direct Bilirubin CK-MB (CK-2) C-Reactive Protein NT-Pro-B Natriuret Pep Total Protein Albumin Arterial Blood Glucose Urine WBC (Auto) Urine Creatinine 12/15/19 12/16/19 12/16/19 23:11 05:30 05:46 WBC RBC Hgb 8.8 L Hct 27.9 L MCHC RDW MCV MCH Lymph % (Auto) Edwards % (Auto) Edwards # Eos # Lymph # (Auto) Edwards # (Auto) Eos # (Auto) Seg Neutrophils % Seg Neuts % (Manual) Baso # (Auto) Lymphocytes % (Manual) Monocytes % (Manual) Eosinophils % (Manual) Basophils % (Manual) Seg Neutrophils # Seg Neutrophils # Man Lymphocytes # (Manual) Monocytes # (Manual) Eosinophils # (Manual) Nucleated RBC % Basophils # (Manual) PT INR APTT Heparin Anti-Xa Level ABG pH POC ABG pO2 ABG pO2 ABG HCO3 ABG O2 Saturation ABG Base Excess POC ABG pCO2 ABG Hemoglobin ABG Oxyhemoglobin ABG Chloride ABG Glucose Oxyhemoglobin Sodium Potassium Chloride Carbon Dioxide BUN Creatinine Glucose POC Glucose 150 H 134 H Lactic Acid Calcium Phosphorus Magnesium AST ALT Lactate Dehydrogenase Total Bilirubin Direct Bilirubin CK-MB (CK-2) C-Reactive Protein NT-Pro-B Natriuret Pep Total Protein Albumin Arterial Blood Glucose Urine WBC (Auto) Urine Creatinine 12/16/19 12/16/19 12/16/19 05:46 05:46 11:44 WBC RBC Hgb Hct MCHC RDW MCV MCH Lymph % (Auto) Edwards % (Auto) Edwards # Eos # Lymph # (Auto) Edwards # (Auto) Eos # (Auto) Seg Neutrophils % Seg Neuts % (Manual) Baso # (Auto) Lymphocytes % (Manual) Monocytes % (Manual) Eosinophils % (Manual) Basophils % (Manual) Seg Neutrophils # Seg Neutrophils # Man Lymphocytes # (Manual) Monocytes # (Manual) Eosinophils # (Manual) Nucleated RBC % Basophils # (Manual) PT INR APTT Heparin Anti-Xa Level 0.20 L ABG pH POC ABG pO2 ABG pO2 ABG HCO3 ABG O2 Saturation ABG Base Excess POC ABG pCO2 ABG Hemoglobin ABG Oxyhemoglobin ABG Chloride ABG Glucose Oxyhemoglobin Sodium Potassium Chloride Carbon Dioxide 31 H BUN Creatinine 0.5 L Glucose 147 H POC Glucose 164 H Lactic Acid Calcium Phosphorus Magnesium AST ALT Lactate Dehydrogenase Total Bilirubin Direct Bilirubin CK-MB (CK-2) C-Reactive Protein NT-Pro-B Natriuret Pep Total Protein Albumin Arterial Blood Glucose Urine WBC (Auto) Urine Creatinine 12/16/19 12/16/19 12/17/19 17:17 23:49 05:30 WBC 13.9 H RBC 3.27 L Hgb 9.4 L Hct 29.2 L MCHC RDW 16.0 H MCV MCH Lymph % (Auto) Edwards % (Auto) 8.8 H Edwards # Eos # Lymph # (Auto) Edwards # (Auto) 1.2 H Eos # (Auto) 0.5 H Seg Neutrophils % 70.5 H Seg Neuts % (Manual) Baso # (Auto) 0.2 H Lymphocytes % (Manual) Monocytes % (Manual) Eosinophils % (Manual) Basophils % (Manual) Seg Neutrophils # 9.8 H Seg Neutrophils # Man Lymphocytes # (Manual) Monocytes # (Manual) Eosinophils # (Manual) Nucleated RBC % Basophils # (Manual) PT INR APTT Heparin Anti-Xa Level ABG pH POC ABG pO2 ABG pO2 ABG HCO3 ABG O2 Saturation ABG Base Excess POC ABG pCO2 ABG Hemoglobin ABG Oxyhemoglobin ABG Chloride ABG Glucose Oxyhemoglobin Sodium Potassium Chloride Carbon Dioxide BUN Creatinine Glucose POC Glucose 162 H 144 H Lactic Acid Calcium Phosphorus Magnesium AST ALT Lactate Dehydrogenase Total Bilirubin Direct Bilirubin CK-MB (CK-2) C-Reactive Protein NT-Pro-B Natriuret Pep Total Protein Albumin Arterial Blood Glucose Urine WBC (Auto) Urine Creatinine 12/17/19 12/17/19 12/17/19 05:30 06:06 11:50 WBC RBC Hgb Hct MCHC RDW MCV MCH Lymph % (Auto) Edwards % (Auto) Edwards # Eos # Lymph # (Auto) Edwards # (Auto) Eos # (Auto) Seg Neutrophils % Seg Neuts % (Manual) Baso # (Auto) Lymphocytes % (Manual) Monocytes % (Manual) Eosinophils % (Manual) Basophils % (Manual) Seg Neutrophils # Seg Neutrophils # Man Lymphocytes # (Manual) Monocytes # (Manual) Eosinophils # (Manual) Nucleated RBC % Basophils # (Manual) PT INR APTT Heparin Anti-Xa Level ABG pH POC ABG pO2 ABG pO2 ABG HCO3 ABG O2 Saturation ABG Base Excess POC ABG pCO2 ABG Hemoglobin ABG Oxyhemoglobin ABG Chloride ABG Glucose Oxyhemoglobin Sodium Potassium Chloride 97.4 L Carbon Dioxide 32 H BUN Creatinine 0.5 L Glucose 135 H POC Glucose 151 H 140 H Lactic Acid Calcium Phosphorus Magnesium AST ALT Lactate Dehydrogenase Total Bilirubin Direct Bilirubin CK-MB (CK-2) C-Reactive Protein NT-Pro-B Natriuret Pep Total Protein Albumin Arterial Blood Glucose Urine WBC (Auto) Urine Creatinine 12/17/19 12/17/19 12/18/19 17:50 23:46 05:17 WBC RBC Hgb 8.8 L Hct 28.0 L MCHC RDW MCV MCH Lymph % (Auto) Edwards % (Auto) Edwards # Eos # Lymph # (Auto) Edwards # (Auto) Eos # (Auto) Seg Neutrophils % Seg Neuts % (Manual) Baso # (Auto) Lymphocytes % (Manual) Monocytes % (Manual) Eosinophils % (Manual) Basophils % (Manual) Seg Neutrophils # Seg Neutrophils # Man Lymphocytes # (Manual) Monocytes # (Manual) Eosinophils # (Manual) Nucleated RBC % Basophils # (Manual) PT INR APTT Heparin Anti-Xa Level ABG pH POC ABG pO2 ABG pO2 ABG HCO3 ABG O2 Saturation ABG Base Excess POC ABG pCO2 ABG Hemoglobin ABG Oxyhemoglobin ABG Chloride ABG Glucose Oxyhemoglobin Sodium Potassium Chloride Carbon Dioxide BUN Creatinine Glucose POC Glucose 158 H 150 H Lactic Acid Calcium Phosphorus Magnesium AST ALT Lactate Dehydrogenase Total Bilirubin Direct Bilirubin CK-MB (CK-2) C-Reactive Protein NT-Pro-B Natriuret Pep Total Protein Albumin Arterial Blood Glucose Urine WBC (Auto) Urine Creatinine 12/18/19 12/18/19 12/18/19 05:17 05:49 11:12 WBC RBC Hgb Hct MCHC RDW MCV MCH Lymph % (Auto) Edwards % (Auto) Edwards # Eos # Lymph # (Auto) Edwards # (Auto) Eos # (Auto) Seg Neutrophils % Seg Neuts % (Manual) Baso # (Auto) Lymphocytes % (Manual) Monocytes % (Manual) Eosinophils % (Manual) Basophils % (Manual) Seg Neutrophils # Seg Neutrophils # Man Lymphocytes # (Manual) Monocytes # (Manual) Eosinophils # (Manual) Nucleated RBC % Basophils # (Manual) PT INR APTT Heparin Anti-Xa Level 0.16 L ABG pH POC ABG pO2 ABG pO2 ABG HCO3 ABG O2 Saturation ABG Base Excess POC ABG pCO2 ABG Hemoglobin ABG Oxyhemoglobin ABG Chloride ABG Glucose Oxyhemoglobin Sodium Potassium Chloride Carbon Dioxide BUN Creatinine Glucose POC Glucose 127 H 191 H Lactic Acid Calcium Phosphorus Magnesium AST ALT Lactate Dehydrogenase Total Bilirubin Direct Bilirubin CK-MB (CK-2) C-Reactive Protein NT-Pro-B Natriuret Pep Total Protein Albumin Arterial Blood Glucose Urine WBC (Auto) Urine Creatinine 12/18/19 12/18/19 12/19/19 17:03 20:16 00:08 WBC RBC Hgb Hct MCHC RDW MCV MCH Lymph % (Auto) Edwards % (Auto) Edwards # Eos # Lymph # (Auto) Edwards # (Auto) Eos # (Auto) Seg Neutrophils % Seg Neuts % (Manual) Baso # (Auto) Lymphocytes % (Manual) Monocytes % (Manual) Eosinophils % (Manual) Basophils % (Manual) Seg Neutrophils # Seg Neutrophils # Man Lymphocytes # (Manual) Monocytes # (Manual) Eosinophils # (Manual) Nucleated RBC % Basophils # (Manual) PT INR APTT Heparin Anti-Xa Level ABG pH POC ABG pO2 ABG pO2 ABG HCO3 ABG O2 Saturation ABG Base Excess POC ABG pCO2 ABG Hemoglobin ABG Oxyhemoglobin ABG Chloride ABG Glucose Oxyhemoglobin Sodium Potassium Chloride Carbon Dioxide BUN Creatinine Glucose POC Glucose 133 H 128 H 129 H Lactic Acid Calcium Phosphorus Magnesium AST ALT Lactate Dehydrogenase Total Bilirubin Direct Bilirubin CK-MB (CK-2) C-Reactive Protein NT-Pro-B Natriuret Pep Total Protein Albumin Arterial Blood Glucose Urine WBC (Auto) Urine Creatinine 12/19/19 12/19/19 12/19/19 04:45 04:45 05:35 WBC RBC Hgb Hct MCHC RDW MCV MCH Lymph % (Auto) Edwards % (Auto) Edwards # Eos # Lymph # (Auto) Edwards # (Auto) Eos # (Auto) Seg Neutrophils % Seg Neuts % (Manual) Baso # (Auto) Lymphocytes % (Manual) Monocytes % (Manual) Eosinophils % (Manual) Basophils % (Manual) Seg Neutrophils # Seg Neutrophils # Man Lymphocytes # (Manual) Monocytes # (Manual) Eosinophils # (Manual) Nucleated RBC % Basophils # (Manual) PT INR APTT Heparin Anti-Xa Level 0.17 L ABG pH POC ABG pO2 ABG pO2 ABG HCO3 ABG O2 Saturation ABG Base Excess POC ABG pCO2 ABG Hemoglobin ABG Oxyhemoglobin ABG Chloride ABG Glucose Oxyhemoglobin Sodium Potassium Chloride Carbon Dioxide BUN Creatinine Glucose POC Glucose 120 H Lactic Acid Calcium Phosphorus Magnesium AST ALT Lactate Dehydrogenase 228 H Total Bilirubin Direct Bilirubin CK-MB (CK-2) C-Reactive Protein NT-Pro-B Natriuret Pep Total Protein Albumin Arterial Blood Glucose Urine WBC (Auto) Urine Creatinine 12/19/19 12/19/19 12/19/19 09:20 11:32 11:32 WBC 14.6 H RBC 3.08 L Hgb 9.0 L Hct 26.8 L MCHC RDW 15.9 H MCV MCH Lymph % (Auto) Edwards % (Auto) Edwards # Eos # Lymph # (Auto) Edwards # (Auto) Eos # (Auto) Seg Neutrophils % Seg Neuts % (Manual) 82.0 H Baso # (Auto) Lymphocytes % (Manual) 10.0 L Monocytes % (Manual) Eosinophils % (Manual) Basophils % (Manual) Seg Neutrophils # Seg Neutrophils # Man 12.0 H Lymphocytes # (Manual) Monocytes # (Manual) 0.9 H Eosinophils # (Manual) Nucleated RBC % 1.0 H Basophils # (Manual) PT INR APTT Heparin Anti-Xa Level ABG pH 7.451 H POC ABG pO2 ABG pO2 62.6 L ABG HCO3 33.2 H ABG O2 Saturation 93.8 L ABG Base Excess 8.3 H POC ABG pCO2 ABG Hemoglobin 8.3 L ABG Oxyhemoglobin ABG Chloride ABG Glucose Oxyhemoglobin 91.9 L Sodium Potassium Chloride 95.0 L Carbon Dioxide 33 H BUN 22 H Creatinine 0.6 L Glucose 150 H POC Glucose Lactic Acid Calcium Phosphorus Magnesium AST ALT Lactate Dehydrogenase Total Bilirubin Direct Bilirubin CK-MB (CK-2) C-Reactive Protein NT-Pro-B Natriuret Pep Total Protein 6.2 L Albumin 2.4 L Arterial Blood Glucose Urine WBC (Auto) Urine Creatinine 12/19/19 12/19/19 12/20/19 11:56 18:17 00:09 WBC RBC Hgb Hct MCHC RDW MCV MCH Lymph % (Auto) Edwards % (Auto) Edwards # Eos # Lymph # (Auto) Edwards # (Auto) Eos # (Auto) Seg Neutrophils % Seg Neuts % (Manual) Baso # (Auto) Lymphocytes % (Manual) Monocytes % (Manual) Eosinophils % (Manual) Basophils % (Manual) Seg Neutrophils # Seg Neutrophils # Man Lymphocytes # (Manual) Monocytes # (Manual) Eosinophils # (Manual) Nucleated RBC % Basophils # (Manual) PT INR APTT Heparin Anti-Xa Level ABG pH POC ABG pO2 ABG pO2 ABG HCO3 ABG O2 Saturation ABG Base Excess POC ABG pCO2 ABG Hemoglobin ABG Oxyhemoglobin ABG Chloride ABG Glucose Oxyhemoglobin Sodium Potassium Chloride Carbon Dioxide BUN Creatinine Glucose POC Glucose 156 H 156 H 155 H Lactic Acid Calcium Phosphorus Magnesium AST ALT Lactate Dehydrogenase Total Bilirubin Direct Bilirubin CK-MB (CK-2) C-Reactive Protein NT-Pro-B Natriuret Pep Total Protein Albumin Arterial Blood Glucose Urine WBC (Auto) Urine Creatinine 12/20/19 12/20/19 12/20/19 05:26 06:02 18:17 WBC RBC Hgb Hct MCHC RDW MCV MCH Lymph % (Auto) Edwards % (Auto) Edwards # Eos # Lymph # (Auto) Edwards # (Auto) Eos # (Auto) Seg Neutrophils % Seg Neuts % (Manual) Baso # (Auto) Lymphocytes % (Manual) Monocytes % (Manual) Eosinophils % (Manual) Basophils % (Manual) Seg Neutrophils # Seg Neutrophils # Man Lymphocytes # (Manual) Monocytes # (Manual) Eosinophils # (Manual) Nucleated RBC % Basophils # (Manual) PT INR APTT Heparin Anti-Xa Level 0.19 L ABG pH POC ABG pO2 ABG pO2 ABG HCO3 ABG O2 Saturation ABG Base Excess POC ABG pCO2 ABG Hemoglobin ABG Oxyhemoglobin ABG Chloride ABG Glucose Oxyhemoglobin Sodium Potassium Chloride Carbon Dioxide BUN Creatinine Glucose POC Glucose 137 H 128 H Lactic Acid Calcium Phosphorus Magnesium AST ALT Lactate Dehydrogenase Total Bilirubin Direct Bilirubin CK-MB (CK-2) C-Reactive Protein NT-Pro-B Natriuret Pep Total Protein Albumin Arterial Blood Glucose Urine WBC (Auto) Urine Creatinine 12/20/19 12/21/19 12/21/19 23:34 05:31 05:31 WBC 12.7 H RBC 3.09 L Hgb 8.9 L Hct 27.4 L MCHC RDW 15.8 H MCV MCH Lymph % (Auto) 12.1 L Edwards % (Auto) 7.8 H Edwards # Eos # Lymph # (Auto) Edwards # (Auto) 1.0 H Eos # (Auto) Seg Neutrophils % 77.1 H Seg Neuts % (Manual) Baso # (Auto) Lymphocytes % (Manual) Monocytes % (Manual) Eosinophils % (Manual) Basophils % (Manual) Seg Neutrophils # 9.8 H Seg Neutrophils # Man Lymphocytes # (Manual) Monocytes # (Manual) Eosinophils # (Manual) Nucleated RBC % Basophils # (Manual) PT INR APTT Heparin Anti-Xa Level ABG pH POC ABG pO2 ABG pO2 ABG HCO3 ABG O2 Saturation ABG Base Excess POC ABG pCO2 ABG Hemoglobin ABG Oxyhemoglobin ABG Chloride ABG Glucose Oxyhemoglobin Sodium Potassium Chloride 96.9 L Carbon Dioxide 37 H BUN 27 H Creatinine 0.7 L Glucose 140 H POC Glucose 145 H Lactic Acid Calcium Phosphorus Magnesium AST ALT Lactate Dehydrogenase Total Bilirubin Direct Bilirubin CK-MB (CK-2) C-Reactive Protein NT-Pro-B Natriuret Pep Total Protein Albumin Arterial Blood Glucose Urine WBC (Auto) Urine Creatinine 12/21/19 12/21/19 12/21/19 05:38 10:13 11:51 WBC RBC Hgb Hct MCHC RDW MCV MCH Lymph % (Auto) Edwards % (Auto) Edwards # Eos # Lymph # (Auto) Edwards # (Auto) Eos # (Auto) Seg Neutrophils % Seg Neuts % (Manual) Baso # (Auto) Lymphocytes % (Manual) Monocytes % (Manual) Eosinophils % (Manual) Basophils % (Manual) Seg Neutrophils # Seg Neutrophils # Man Lymphocytes # (Manual) Monocytes # (Manual) Eosinophils # (Manual) Nucleated RBC % Basophils # (Manual) PT INR APTT 23.9 L Heparin Anti-Xa Level < 0.10 L ABG pH POC ABG pO2 ABG pO2 ABG HCO3 ABG O2 Saturation ABG Base Excess POC ABG pCO2 ABG Hemoglobin ABG Oxyhemoglobin ABG Chloride ABG Glucose Oxyhemoglobin Sodium Potassium Chloride Carbon Dioxide BUN Creatinine Glucose POC Glucose 151 H 145 H Lactic Acid Calcium Phosphorus Magnesium AST ALT Lactate Dehydrogenase Total Bilirubin Direct Bilirubin CK-MB (CK-2) C-Reactive Protein NT-Pro-B Natriuret Pep Total Protein Albumin Arterial Blood Glucose Urine WBC (Auto) Urine Creatinine 12/21/19 12/22/19 12/22/19 17:16 00:01 01:33 WBC RBC Hgb Hct MCHC RDW MCV MCH Lymph % (Auto) Edwards % (Auto) Edwards # Eos # Lymph # (Auto) Edwards # (Auto) Eos # (Auto) Seg Neutrophils % Seg Neuts % (Manual) Baso # (Auto) Lymphocytes % (Manual) Monocytes % (Manual) Eosinophils % (Manual) Basophils % (Manual) Seg Neutrophils # Seg Neutrophils # Man Lymphocytes # (Manual) Monocytes # (Manual) Eosinophils # (Manual) Nucleated RBC % Basophils # (Manual) PT INR APTT Heparin Anti-Xa Level 0.10 L ABG pH POC ABG pO2 ABG pO2 ABG HCO3 ABG O2 Saturation ABG Base Excess POC ABG pCO2 ABG Hemoglobin ABG Oxyhemoglobin ABG Chloride ABG Glucose Oxyhemoglobin Sodium Potassium Chloride Carbon Dioxide BUN Creatinine Glucose POC Glucose 167 H 179 H Lactic Acid Calcium Phosphorus Magnesium AST ALT Lactate Dehydrogenase Total Bilirubin Direct Bilirubin CK-MB (CK-2) C-Reactive Protein NT-Pro-B Natriuret Pep Total Protein Albumin Arterial Blood Glucose Urine WBC (Auto) Urine Creatinine 12/22/19 12/22/19 12/22/19 03:22 05:10 05:10 WBC 13.8 H RBC 3.20 L Hgb 8.9 L Hct 28.1 L MCHC RDW 15.9 H MCV MCH Lymph % (Auto) Edwards % (Auto) Edwards # Eos # Lymph # (Auto) Edwards # (Auto) Eos # (Auto) Seg Neutrophils % Seg Neuts % (Manual) Baso # (Auto) Lymphocytes % (Manual) Monocytes % (Manual) Eosinophils % (Manual) Basophils % (Manual) Seg Neutrophils # Seg Neutrophils # Man Lymphocytes # (Manual) Monocytes # (Manual) Eosinophils # (Manual) Nucleated RBC % Basophils # (Manual) PT INR APTT Heparin Anti-Xa Level ABG pH POC ABG pO2 52.3 L ABG pO2 ABG HCO3 ABG O2 Saturation ABG Base Excess POC ABG pCO2 52.9 H ABG Hemoglobin 10.7 L ABG Oxyhemoglobin 84 L ABG Chloride ABG Glucose Oxyhemoglobin Sodium Potassium Chloride 96.6 L Carbon Dioxide BUN 25 H Creatinine 0.7 L Glucose 129 H POC Glucose Lactic Acid Calcium Phosphorus Magnesium AST ALT Lactate Dehydrogenase Total Bilirubin Direct Bilirubin CK-MB (CK-2) C-Reactive Protein NT-Pro-B Natriuret Pep Total Protein Albumin Arterial Blood Glucose Urine WBC (Auto) Urine Creatinine 12/22/19 12/22/19 12/22/19 05:18 12:32 12:43 WBC RBC Hgb Hct MCHC RDW MCV MCH Lymph % (Auto) Edwards % (Auto) Edwards # Eos # Lymph # (Auto) Edwards # (Auto) Eos # (Auto) Seg Neutrophils % Seg Neuts % (Manual) Baso # (Auto) Lymphocytes % (Manual) Monocytes % (Manual) Eosinophils % (Manual) Basophils % (Manual) Seg Neutrophils # Seg Neutrophils # Man Lymphocytes # (Manual) Monocytes # (Manual) Eosinophils # (Manual) Nucleated RBC % Basophils # (Manual) PT INR APTT Heparin Anti-Xa Level 0.18 L ABG pH POC ABG pO2 ABG pO2 ABG HCO3 ABG O2 Saturation ABG Base Excess POC ABG pCO2 ABG Hemoglobin ABG Oxyhemoglobin ABG Chloride ABG Glucose Oxyhemoglobin Sodium Potassium Chloride Carbon Dioxide BUN Creatinine Glucose POC Glucose 131 H 208 H Lactic Acid Calcium Phosphorus Magnesium AST ALT Lactate Dehydrogenase Total Bilirubin Direct Bilirubin CK-MB (CK-2) C-Reactive Protein NT-Pro-B Natriuret Pep Total Protein Albumin Arterial Blood Glucose Urine WBC (Auto) Urine Creatinine 12/22/19 12/22/19 12/23/19 17:44 23:20 03:51 WBC 15.2 H RBC 3.43 L Hgb 9.6 L Hct 30.3 L MCHC RDW 15.9 H MCV MCH Lymph % (Auto) Edwards % (Auto) Edwards # Eos # Lymph # (Auto) Edwards # (Auto) Eos # (Auto) Seg Neutrophils % Seg Neuts % (Manual) Baso # (Auto) Lymphocytes % (Manual) Monocytes % (Manual) Eosinophils % (Manual) Basophils % (Manual) Seg Neutrophils # Seg Neutrophils # Man Lymphocytes # (Manual) Monocytes # (Manual) Eosinophils # (Manual) Nucleated RBC % Basophils # (Manual) PT INR APTT Heparin Anti-Xa Level ABG pH POC ABG pO2 ABG pO2 ABG HCO3 ABG O2 Saturation ABG Base Excess POC ABG pCO2 ABG Hemoglobin ABG Oxyhemoglobin ABG Chloride ABG Glucose Oxyhemoglobin Sodium Potassium Chloride Carbon Dioxide BUN Creatinine Glucose POC Glucose 209 H 119 H Lactic Acid Calcium Phosphorus Magnesium AST ALT Lactate Dehydrogenase Total Bilirubin Direct Bilirubin CK-MB (CK-2) C-Reactive Protein NT-Pro-B Natriuret Pep Total Protein Albumin Arterial Blood Glucose Urine WBC (Auto) Urine Creatinine 12/23/19 12/23/19 12/23/19 03:51 05:31 12:09 WBC RBC Hgb Hct MCHC RDW MCV MCH Lymph % (Auto) Edwards % (Auto) Edwards # Eos # Lymph # (Auto) Edwards # (Auto) Eos # (Auto) Seg Neutrophils % Seg Neuts % (Manual) Baso # (Auto) Lymphocytes % (Manual) Monocytes % (Manual) Eosinophils % (Manual) Basophils % (Manual) Seg Neutrophils # Seg Neutrophils # Man Lymphocytes # (Manual) Monocytes # (Manual) Eosinophils # (Manual) Nucleated RBC % Basophils # (Manual) PT INR APTT Heparin Anti-Xa Level ABG pH POC ABG pO2 ABG pO2 ABG HCO3 ABG O2 Saturation ABG Base Excess POC ABG pCO2 ABG Hemoglobin ABG Oxyhemoglobin ABG Chloride ABG Glucose Oxyhemoglobin Sodium Potassium Chloride 97.2 L Carbon Dioxide 31 H BUN 23 H Creatinine 0.6 L Glucose 153 H POC Glucose 149 H 144 H Lactic Acid Calcium Phosphorus Magnesium AST ALT Lactate Dehydrogenase Total Bilirubin Direct Bilirubin CK-MB (CK-2) C-Reactive Protein NT-Pro-B Natriuret Pep Total Protein Albumin Arterial Blood Glucose Urine WBC (Auto) Urine Creatinine 12/23/19 12/23/19 12/23/19 15:30 17:49 23:31 WBC RBC Hgb Hct MCHC RDW MCV MCH Lymph % (Auto) Edwards % (Auto) Edwards # Eos # Lymph # (Auto) Edwards # (Auto) Eos # (Auto) Seg Neutrophils % Seg Neuts % (Manual) Baso # (Auto) Lymphocytes % (Manual) Monocytes % (Manual) Eosinophils % (Manual) Basophils % (Manual) Seg Neutrophils # Seg Neutrophils # Man Lymphocytes # (Manual) Monocytes # (Manual) Eosinophils # (Manual) Nucleated RBC % Basophils # (Manual) PT INR APTT Heparin Anti-Xa Level 0.21 L ABG pH POC ABG pO2 ABG pO2 ABG HCO3 ABG O2 Saturation ABG Base Excess POC ABG pCO2 ABG Hemoglobin ABG Oxyhemoglobin ABG Chloride ABG Glucose Oxyhemoglobin Sodium Potassium Chloride Carbon Dioxide BUN Creatinine Glucose POC Glucose 192 H 151 H Lactic Acid Calcium Phosphorus Magnesium AST ALT Lactate Dehydrogenase Total Bilirubin Direct Bilirubin CK-MB (CK-2) C-Reactive Protein NT-Pro-B Natriuret Pep Total Protein Albumin Arterial Blood Glucose Urine WBC (Auto) Urine Creatinine 12/24/19 12/24/19 12/24/19 05:34 12:13 16:50 WBC RBC Hgb Hct MCHC RDW MCV MCH Lymph % (Auto) Edwards % (Auto) Edwards # Eos # Lymph # (Auto) Edwards # (Auto) Eos # (Auto) Seg Neutrophils % Seg Neuts % (Manual) Baso # (Auto) Lymphocytes % (Manual) Monocytes % (Manual) Eosinophils % (Manual) Basophils % (Manual) Seg Neutrophils # Seg Neutrophils # Man Lymphocytes # (Manual) Monocytes # (Manual) Eosinophils # (Manual) Nucleated RBC % Basophils # (Manual) PT INR APTT Heparin Anti-Xa Level 0.16 L ABG pH POC ABG pO2 ABG pO2 ABG HCO3 ABG O2 Saturation ABG Base Excess POC ABG pCO2 ABG Hemoglobin ABG Oxyhemoglobin ABG Chloride ABG Glucose Oxyhemoglobin Sodium Potassium Chloride Carbon Dioxide BUN Creatinine Glucose POC Glucose 145 H 124 H Lactic Acid Calcium Phosphorus Magnesium AST ALT Lactate Dehydrogenase Total Bilirubin Direct Bilirubin CK-MB (CK-2) C-Reactive Protein NT-Pro-B Natriuret Pep Total Protein Albumin Arterial Blood Glucose Urine WBC (Auto) Urine Creatinine 12/24/19 12/25/19 12/25/19 17:53 00:14 04:18 WBC 12.9 H RBC 3.30 L Hgb 9.1 L Hct 28.8 L MCHC RDW 16.4 H MCV MCH Lymph % (Auto) Edwards % (Auto) 7.8 H Edwards # Eos # Lymph # (Auto) Edwards # (Auto) 1.0 H Eos # (Auto) Seg Neutrophils % 75.5 H Seg Neuts % (Manual) Baso # (Auto) Lymphocytes % (Manual) Monocytes % (Manual) Eosinophils % (Manual) Basophils % (Manual) Seg Neutrophils # 9.7 H Seg Neutrophils # Man Lymphocytes # (Manual) Monocytes # (Manual) Eosinophils # (Manual) Nucleated RBC % Basophils # (Manual) PT INR APTT Heparin Anti-Xa Level ABG pH POC ABG pO2 ABG pO2 ABG HCO3 ABG O2 Saturation ABG Base Excess POC ABG pCO2 ABG Hemoglobin ABG Oxyhemoglobin ABG Chloride ABG Glucose Oxyhemoglobin Sodium Potassium Chloride Carbon Dioxide BUN Creatinine Glucose POC Glucose 164 H 148 H Lactic Acid Calcium Phosphorus Magnesium AST ALT Lactate Dehydrogenase Total Bilirubin Direct Bilirubin CK-MB (CK-2) C-Reactive Protein NT-Pro-B Natriuret Pep Total Protein Albumin Arterial Blood Glucose Urine WBC (Auto) Urine Creatinine 12/25/19 12/25/19 12/25/19 04:18 05:38 11:44 WBC RBC Hgb Hct MCHC RDW MCV MCH Lymph % (Auto) Edwards % (Auto) Edwards # Eos # Lymph # (Auto) Edwards # (Auto) Eos # (Auto) Seg Neutrophils % Seg Neuts % (Manual) Baso # (Auto) Lymphocytes % (Manual) Monocytes % (Manual) Eosinophils % (Manual) Basophils % (Manual) Seg Neutrophils # Seg Neutrophils # Man Lymphocytes # (Manual) Monocytes # (Manual) Eosinophils # (Manual) Nucleated RBC % Basophils # (Manual) PT INR APTT Heparin Anti-Xa Level ABG pH POC ABG pO2 ABG pO2 ABG HCO3 ABG O2 Saturation ABG Base Excess POC ABG pCO2 ABG Hemoglobin ABG Oxyhemoglobin ABG Chloride ABG Glucose Oxyhemoglobin Sodium Potassium Chloride Carbon Dioxide 33 H BUN 27 H Creatinine 0.6 L Glucose 132 H POC Glucose 152 H 166 H Lactic Acid Calcium Phosphorus Magnesium AST ALT Lactate Dehydrogenase Total Bilirubin Direct Bilirubin CK-MB (CK-2) C-Reactive Protein NT-Pro-B Natriuret Pep Total Protein Albumin Arterial Blood Glucose Urine WBC (Auto) Urine Creatinine 12/25/19 12/26/19 12/26/19 18:29 00:17 00:18 WBC RBC Hgb Hct MCHC RDW MCV MCH Lymph % (Auto) Edwards % (Auto) Edwards # Eos # Lymph # (Auto) Edwards # (Auto) Eos # (Auto) Seg Neutrophils % Seg Neuts % (Manual) Baso # (Auto) Lymphocytes % (Manual) Monocytes % (Manual) Eosinophils % (Manual) Basophils % (Manual) Seg Neutrophils # Seg Neutrophils # Man Lymphocytes # (Manual) Monocytes # (Manual) Eosinophils # (Manual) Nucleated RBC % Basophils # (Manual) PT INR APTT Heparin Anti-Xa Level ABG pH POC ABG pO2 ABG pO2 ABG HCO3 ABG O2 Saturation ABG Base Excess POC ABG pCO2 ABG Hemoglobin ABG Oxyhemoglobin ABG Chloride ABG Glucose Oxyhemoglobin Sodium Potassium Chloride 97.8 L Carbon Dioxide BUN 25 H Creatinine 0.6 L Glucose 140 H POC Glucose 194 H 151 H Lactic Acid Calcium Phosphorus Magnesium AST ALT Lactate Dehydrogenase Total Bilirubin Direct Bilirubin CK-MB (CK-2) C-Reactive Protein NT-Pro-B Natriuret Pep Total Protein Albumin Arterial Blood Glucose Urine WBC (Auto) Urine Creatinine 12/26/19 12/26/19 12/26/19 05:36 11:41 17:50 WBC RBC Hgb Hct MCHC RDW MCV MCH Lymph % (Auto) Edwards % (Auto) Edwards # Eos # Lymph # (Auto) Edwards # (Auto) Eos # (Auto) Seg Neutrophils % Seg Neuts % (Manual) Baso # (Auto) Lymphocytes % (Manual) Monocytes % (Manual) Eosinophils % (Manual) Basophils % (Manual) Seg Neutrophils # Seg Neutrophils # Man Lymphocytes # (Manual) Monocytes # (Manual) Eosinophils # (Manual) Nucleated RBC % Basophils # (Manual) PT INR APTT Heparin Anti-Xa Level ABG pH POC ABG pO2 ABG pO2 ABG HCO3 ABG O2 Saturation ABG Base Excess POC ABG pCO2 ABG Hemoglobin ABG Oxyhemoglobin ABG Chloride ABG Glucose Oxyhemoglobin Sodium Potassium Chloride Carbon Dioxide BUN Creatinine Glucose POC Glucose 156 H 148 H 139 H Lactic Acid Calcium Phosphorus Magnesium AST ALT Lactate Dehydrogenase Total Bilirubin Direct Bilirubin CK-MB (CK-2) C-Reactive Protein NT-Pro-B Natriuret Pep Total Protein Albumin Arterial Blood Glucose Urine WBC (Auto) Urine Creatinine 12/26/19 12/27/19 12/27/19 23:19 05:34 12:02 WBC RBC Hgb Hct MCHC RDW MCV MCH Lymph % (Auto) Edwards % (Auto) Edwards # Eos # Lymph # (Auto) Edwards # (Auto) Eos # (Auto) Seg Neutrophils % Seg Neuts % (Manual) Baso # (Auto) Lymphocytes % (Manual) Monocytes % (Manual) Eosinophils % (Manual) Basophils % (Manual) Seg Neutrophils # Seg Neutrophils # Man Lymphocytes # (Manual) Monocytes # (Manual) Eosinophils # (Manual) Nucleated RBC % Basophils # (Manual) PT INR APTT Heparin Anti-Xa Level ABG pH POC ABG pO2 ABG pO2 ABG HCO3 ABG O2 Saturation ABG Base Excess POC ABG pCO2 ABG Hemoglobin ABG Oxyhemoglobin ABG Chloride ABG Glucose Oxyhemoglobin Sodium Potassium Chloride Carbon Dioxide BUN Creatinine Glucose POC Glucose 161 H 145 H 157 H Lactic Acid Calcium Phosphorus Magnesium AST ALT Lactate Dehydrogenase Total Bilirubin Direct Bilirubin CK-MB (CK-2) C-Reactive Protein NT-Pro-B Natriuret Pep Total Protein Albumin Arterial Blood Glucose Urine WBC (Auto) Urine Creatinine 12/27/19 12/27/19 12/27/19 17:35 20:11 23:00 WBC RBC Hgb Hct MCHC RDW MCV MCH Lymph % (Auto) Edwards % (Auto) Edwards # Eos # Lymph # (Auto) Edwards # (Auto) Eos # (Auto) Seg Neutrophils % Seg Neuts % (Manual) Baso # (Auto) Lymphocytes % (Manual) Monocytes % (Manual) Eosinophils % (Manual) Basophils % (Manual) Seg Neutrophils # Seg Neutrophils # Man Lymphocytes # (Manual) Monocytes # (Manual) Eosinophils # (Manual) Nucleated RBC % Basophils # (Manual) PT INR APTT Heparin Anti-Xa Level 0.19 L ABG pH POC ABG pO2 ABG pO2 ABG HCO3 ABG O2 Saturation ABG Base Excess POC ABG pCO2 ABG Hemoglobin ABG Oxyhemoglobin ABG Chloride ABG Glucose Oxyhemoglobin Sodium Potassium Chloride Carbon Dioxide BUN Creatinine Glucose POC Glucose 158 H 155 H Lactic Acid Calcium Phosphorus Magnesium AST ALT Lactate Dehydrogenase Total Bilirubin Direct Bilirubin CK-MB (CK-2) C-Reactive Protein NT-Pro-B Natriuret Pep Total Protein Albumin Arterial Blood Glucose Urine WBC (Auto) Urine Creatinine 12/27/19 12/28/19 12/28/19 23:45 02:41 02:41 WBC 13.0 H RBC 3.48 L Hgb 9.5 L Hct 30.6 L MCHC 31 L RDW 16.6 H MCV MCH 27 L Lymph % (Auto) 13.0 L Edwards % (Auto) 8.0 H Edwards # Eos # Lymph # (Auto) Edwards # (Auto) 1.0 H Eos # (Auto) Seg Neutrophils % 76.3 H Seg Neuts % (Manual) Baso # (Auto) Lymphocytes % (Manual) Monocytes % (Manual) Eosinophils % (Manual) Basophils % (Manual) Seg Neutrophils # 9.9 H Seg Neutrophils # Man Lymphocytes # (Manual) Monocytes # (Manual) Eosinophils # (Manual) Nucleated RBC % Basophils # (Manual) PT INR APTT Heparin Anti-Xa Level ABG pH POC ABG pO2 ABG pO2 ABG HCO3 ABG O2 Saturation ABG Base Excess POC ABG pCO2 ABG Hemoglobin ABG Oxyhemoglobin ABG Chloride ABG Glucose Oxyhemoglobin Sodium Potassium Chloride Carbon Dioxide BUN 22 H Creatinine 0.6 L Glucose 101 H POC Glucose 130 H Lactic Acid Calcium Phosphorus Magnesium AST ALT Lactate Dehydrogenase Total Bilirubin Direct Bilirubin CK-MB (CK-2) C-Reactive Protein NT-Pro-B Natriuret Pep Total Protein Albumin Arterial Blood Glucose Urine WBC (Auto) Urine Creatinine 12/28/19 12/28/19 12/28/19 06:00 12:34 18:13 WBC RBC Hgb Hct MCHC RDW MCV MCH Lymph % (Auto) Edwards % (Auto) Edwards # Eos # Lymph # (Auto) Edwards # (Auto) Eos # (Auto) Seg Neutrophils % Seg Neuts % (Manual) Baso # (Auto) Lymphocytes % (Manual) Monocytes % (Manual) Eosinophils % (Manual) Basophils % (Manual) Seg Neutrophils # Seg Neutrophils # Man Lymphocytes # (Manual) Monocytes # (Manual) Eosinophils # (Manual) Nucleated RBC % Basophils # (Manual) PT INR APTT Heparin Anti-Xa Level ABG pH POC ABG pO2 ABG pO2 ABG HCO3 ABG O2 Saturation ABG Base Excess POC ABG pCO2 ABG Hemoglobin ABG Oxyhemoglobin ABG Chloride ABG Glucose Oxyhemoglobin Sodium Potassium Chloride Carbon Dioxide BUN Creatinine Glucose POC Glucose 150 H 161 H 128 H Lactic Acid Calcium Phosphorus Magnesium AST ALT Lactate Dehydrogenase Total Bilirubin Direct Bilirubin CK-MB (CK-2) C-Reactive Protein NT-Pro-B Natriuret Pep Total Protein Albumin Arterial Blood Glucose Urine WBC (Auto) Urine Creatinine 12/28/19 12/29/19 12/29/19 23:36 05:21 11:40 WBC RBC Hgb Hct MCHC RDW MCV MCH Lymph % (Auto) Edwards % (Auto) Edwards # Eos # Lymph # (Auto) Edwards # (Auto) Eos # (Auto) Seg Neutrophils % Seg Neuts % (Manual) Baso # (Auto) Lymphocytes % (Manual) Monocytes % (Manual) Eosinophils % (Manual) Basophils % (Manual) Seg Neutrophils # Seg Neutrophils # Man Lymphocytes # (Manual) Monocytes # (Manual) Eosinophils # (Manual) Nucleated RBC % Basophils # (Manual) PT INR APTT Heparin Anti-Xa Level ABG pH POC ABG pO2 ABG pO2 ABG HCO3 ABG O2 Saturation ABG Base Excess POC ABG pCO2 ABG Hemoglobin ABG Oxyhemoglobin ABG Chloride ABG Glucose Oxyhemoglobin Sodium Potassium Chloride Carbon Dioxide BUN Creatinine Glucose POC Glucose 137 H 136 H 166 H Lactic Acid Calcium Phosphorus Magnesium AST ALT Lactate Dehydrogenase Total Bilirubin Direct Bilirubin CK-MB (CK-2) C-Reactive Protein NT-Pro-B Natriuret Pep Total Protein Albumin Arterial Blood Glucose Urine WBC (Auto) Urine Creatinine 12/29/19 12/29/19 12/29/19 17:23 19:21 23:38 WBC RBC Hgb Hct MCHC RDW MCV MCH Lymph % (Auto) Edwards % (Auto) Edwards # Eos # Lymph # (Auto) Edwards # (Auto) Eos # (Auto) Seg Neutrophils % Seg Neuts % (Manual) Baso # (Auto) Lymphocytes % (Manual) Monocytes % (Manual) Eosinophils % (Manual) Basophils % (Manual) Seg Neutrophils # Seg Neutrophils # Man Lymphocytes # (Manual) Monocytes # (Manual) Eosinophils # (Manual) Nucleated RBC % Basophils # (Manual) PT INR APTT Heparin Anti-Xa Level 0.20 L ABG pH POC ABG pO2 ABG pO2 ABG HCO3 ABG O2 Saturation ABG Base Excess POC ABG pCO2 ABG Hemoglobin ABG Oxyhemoglobin ABG Chloride ABG Glucose Oxyhemoglobin Sodium Potassium Chloride Carbon Dioxide BUN Creatinine Glucose POC Glucose 144 H 141 H Lactic Acid Calcium Phosphorus Magnesium AST ALT Lactate Dehydrogenase Total Bilirubin Direct Bilirubin CK-MB (CK-2) C-Reactive Protein NT-Pro-B Natriuret Pep Total Protein Albumin Arterial Blood Glucose Urine WBC (Auto) Urine Creatinine 12/30/19 12/30/19 12/30/19 03:58 03:58 04:59 WBC RBC 3.54 L Hgb 9.8 L Hct 30.7 L MCHC RDW 16.8 H MCV MCH Lymph % (Auto) Edwards % (Auto) Edwards # Eos # Lymph # (Auto) Edwards # (Auto) Eos # (Auto) Seg Neutrophils % Seg Neuts % (Manual) Baso # (Auto) Lymphocytes % (Manual) Monocytes % (Manual) Eosinophils % (Manual) Basophils % (Manual) Seg Neutrophils # Seg Neutrophils # Man Lymphocytes # (Manual) Monocytes # (Manual) Eosinophils # (Manual) Nucleated RBC % Basophils # (Manual) PT INR APTT Heparin Anti-Xa Level ABG pH POC ABG pO2 ABG pO2 ABG HCO3 29.8 H ABG O2 Saturation ABG Base Excess 4.8 H POC ABG pCO2 ABG Hemoglobin 11.2 L ABG Oxyhemoglobin ABG Chloride ABG Glucose Oxyhemoglobin 93.8 L Sodium Potassium Chloride 97.8 L Carbon Dioxide BUN 26 H Creatinine Glucose 168 H POC Glucose Lactic Acid Calcium Phosphorus Magnesium AST ALT Lactate Dehydrogenase Total Bilirubin Direct Bilirubin CK-MB (CK-2) C-Reactive Protein NT-Pro-B Natriuret Pep Total Protein Albumin Arterial Blood Glucose Urine WBC (Auto) Urine Creatinine 12/30/19 12/30/19 12/30/19 05:45 11:34 17:28 WBC RBC Hgb Hct MCHC RDW MCV MCH Lymph % (Auto) Edwards % (Auto) Edwards # Eos # Lymph # (Auto) Edwards # (Auto) Eos # (Auto) Seg Neutrophils % Seg Neuts % (Manual) Baso # (Auto) Lymphocytes % (Manual) Monocytes % (Manual) Eosinophils % (Manual) Basophils % (Manual) Seg Neutrophils # Seg Neutrophils # Man Lymphocytes # (Manual) Monocytes # (Manual) Eosinophils # (Manual) Nucleated RBC % Basophils # (Manual) PT INR APTT Heparin Anti-Xa Level ABG pH POC ABG pO2 ABG pO2 ABG HCO3 ABG O2 Saturation ABG Base Excess POC ABG pCO2 ABG Hemoglobin ABG Oxyhemoglobin ABG Chloride ABG Glucose Oxyhemoglobin Sodium Potassium Chloride Carbon Dioxide BUN Creatinine Glucose POC Glucose 163 H 180 H 150 H Lactic Acid Calcium Phosphorus Magnesium AST ALT Lactate Dehydrogenase Total Bilirubin Direct Bilirubin CK-MB (CK-2) C-Reactive Protein NT-Pro-B Natriuret Pep Total Protein Albumin Arterial Blood Glucose Urine WBC (Auto) Urine Creatinine 12/30/19 12/31/19 12/31/19 23:43 04:55 05:07 WBC RBC Hgb Hct MCHC RDW MCV MCH Lymph % (Auto) Edwards % (Auto) Edwards # Eos # Lymph # (Auto) Edwards # (Auto) Eos # (Auto) Seg Neutrophils % Seg Neuts % (Manual) Baso # (Auto) Lymphocytes % (Manual) Monocytes % (Manual) Eosinophils % (Manual) Basophils % (Manual) Seg Neutrophils # Seg Neutrophils # Man Lymphocytes # (Manual) Monocytes # (Manual) Eosinophils # (Manual) Nucleated RBC % Basophils # (Manual) PT INR APTT Heparin Anti-Xa Level ABG pH POC ABG pO2 ABG pO2 ABG HCO3 ABG O2 Saturation ABG Base Excess POC ABG pCO2 ABG Hemoglobin ABG Oxyhemoglobin ABG Chloride ABG Glucose Oxyhemoglobin Sodium Potassium 5.6 H D Chloride Carbon Dioxide BUN 33 H Creatinine Glucose 131 H POC Glucose 142 H 134 H Lactic Acid Calcium Phosphorus Magnesium AST ALT Lactate Dehydrogenase Total Bilirubin Direct Bilirubin CK-MB (CK-2) C-Reactive Protein NT-Pro-B Natriuret Pep Total Protein Albumin Arterial Blood Glucose Urine WBC (Auto) Urine Creatinine 12/31/19 12/31/19 12/31/19 11:30 17:19 17:36 WBC RBC Hgb Hct MCHC RDW MCV MCH Lymph % (Auto) Edwards % (Auto) Edwards # Eos # Lymph # (Auto) Edwards # (Auto) Eos # (Auto) Seg Neutrophils % Seg Neuts % (Manual) Baso # (Auto) Lymphocytes % (Manual) Monocytes % (Manual) Eosinophils % (Manual) Basophils % (Manual) Seg Neutrophils # Seg Neutrophils # Man Lymphocytes # (Manual) Monocytes # (Manual) Eosinophils # (Manual) Nucleated RBC % Basophils # (Manual) PT INR APTT Heparin Anti-Xa Level ABG pH POC ABG pO2 ABG pO2 ABG HCO3 ABG O2 Saturation ABG Base Excess POC ABG pCO2 ABG Hemoglobin ABG Oxyhemoglobin ABG Chloride ABG Glucose Oxyhemoglobin Sodium Potassium Chloride Carbon Dioxide BUN 35 H Creatinine Glucose 156 H POC Glucose 158 H 181 H Lactic Acid Calcium Phosphorus Magnesium AST ALT Lactate Dehydrogenase Total Bilirubin Direct Bilirubin CK-MB (CK-2) C-Reactive Protein NT-Pro-B Natriuret Pep Total Protein Albumin Arterial Blood Glucose Urine WBC (Auto) Urine Creatinine 12/31/19 12/31/19 12/31/19 18:16 19:41 21:53 WBC RBC Hgb Hct MCHC RDW MCV MCH Lymph % (Auto) Edwards % (Auto) Edwards # Eos # Lymph # (Auto) Edwards # (Auto) Eos # (Auto) Seg Neutrophils % Seg Neuts % (Manual) Baso # (Auto) Lymphocytes % (Manual) Monocytes % (Manual) Eosinophils % (Manual) Basophils % (Manual) Seg Neutrophils # Seg Neutrophils # Man Lymphocytes # (Manual) Monocytes # (Manual) Eosinophils # (Manual) Nucleated RBC % Basophils # (Manual) PT INR APTT Heparin Anti-Xa Level 0.20 L ABG pH POC ABG pO2 ABG pO2 ABG HCO3 ABG O2 Saturation ABG Base Excess POC ABG pCO2 ABG Hemoglobin ABG Oxyhemoglobin ABG Chloride ABG Glucose Oxyhemoglobin Sodium Potassium Chloride Carbon Dioxide BUN 34 H Creatinine Glucose 169 H POC Glucose 141 H Lactic Acid Calcium Phosphorus Magnesium AST ALT Lactate Dehydrogenase Total Bilirubin Direct Bilirubin CK-MB (CK-2) C-Reactive Protein NT-Pro-B Natriuret Pep Total Protein Albumin Arterial Blood Glucose Urine WBC (Auto) Urine Creatinine 12/31/19 01/01/20 01/01/20 23:51 05:17 10:40 WBC RBC Hgb Hct MCHC RDW MCV MCH Lymph % (Auto) Edwards % (Auto) Edwards # Eos # Lymph # (Auto) Edwards # (Auto) Eos # (Auto) Seg Neutrophils % Seg Neuts % (Manual) Baso # (Auto) Lymphocytes % (Manual) Monocytes % (Manual) Eosinophils % (Manual) Basophils % (Manual) Seg Neutrophils # Seg Neutrophils # Man Lymphocytes # (Manual) Monocytes # (Manual) Eosinophils # (Manual) Nucleated RBC % Basophils # (Manual) PT INR APTT Heparin Anti-Xa Level ABG pH POC ABG pO2 ABG pO2 ABG HCO3 ABG O2 Saturation ABG Base Excess POC ABG pCO2 ABG Hemoglobin ABG Oxyhemoglobin ABG Chloride ABG Glucose Oxyhemoglobin Sodium Potassium Chloride Carbon Dioxide BUN 31 H Creatinine 0.7 L Glucose 137 H POC Glucose 131 H 155 H Lactic Acid Calcium Phosphorus Magnesium AST 73 H ALT 97 H Lactate Dehydrogenase Total Bilirubin Direct Bilirubin CK-MB (CK-2) C-Reactive Protein NT-Pro-B Natriuret Pep 3866 H Total Protein Albumin 2.8 L Arterial Blood Glucose Urine WBC (Auto) Urine Creatinine 01/01/20 01/01/20 01/01/20 12:26 15:33 17:53 WBC 14.3 H RBC 3.35 L Hgb 9.1 L Hct 28.8 L MCHC RDW 17.0 H MCV MCH 27 L Lymph % (Auto) 7.0 L Edwards % (Auto) 7.6 H Edwards # Eos # Lymph # (Auto) 1.0 L Edwards # (Auto) 1.1 H Eos # (Auto) Seg Neutrophils % 83.3 H Seg Neuts % (Manual) Baso # (Auto) Lymphocytes % (Manual) Monocytes % (Manual) Eosinophils % (Manual) Basophils % (Manual) Seg Neutrophils # 12.0 H Seg Neutrophils # Man Lymphocytes # (Manual) Monocytes # (Manual) Eosinophils # (Manual) Nucleated RBC % Basophils # (Manual) PT INR APTT Heparin Anti-Xa Level ABG pH POC ABG pO2 ABG pO2 ABG HCO3 ABG O2 Saturation ABG Base Excess POC ABG pCO2 ABG Hemoglobin ABG Oxyhemoglobin ABG Chloride ABG Glucose Oxyhemoglobin Sodium Potassium Chloride Carbon Dioxide BUN Creatinine Glucose POC Glucose 128 H 128 H Lactic Acid Calcium Phosphorus Magnesium AST ALT Lactate Dehydrogenase Total Bilirubin Direct Bilirubin CK-MB (CK-2) C-Reactive Protein NT-Pro-B Natriuret Pep Total Protein Albumin Arterial Blood Glucose Urine WBC (Auto) Urine Creatinine 01/01/20 01/02/20 01/02/20 23:04 05:39 07:00 WBC RBC Hgb Hct MCHC RDW MCV MCH Lymph % (Auto) Edwards % (Auto) Edwards # Eos # Lymph # (Auto) Edwards # (Auto) Eos # (Auto) Seg Neutrophils % Seg Neuts % (Manual) Baso # (Auto) Lymphocytes % (Manual) Monocytes % (Manual) Eosinophils % (Manual) Basophils % (Manual) Seg Neutrophils # Seg Neutrophils # Man Lymphocytes # (Manual) Monocytes # (Manual) Eosinophils # (Manual) Nucleated RBC % Basophils # (Manual) PT INR APTT Heparin Anti-Xa Level 0.13 L ABG pH POC ABG pO2 ABG pO2 ABG HCO3 ABG O2 Saturation ABG Base Excess POC ABG pCO2 ABG Hemoglobin ABG Oxyhemoglobin ABG Chloride ABG Glucose Oxyhemoglobin Sodium Potassium Chloride Carbon Dioxide BUN Creatinine Glucose POC Glucose 120 H 169 H Lactic Acid Calcium Phosphorus Magnesium AST ALT Lactate Dehydrogenase Total Bilirubin Direct Bilirubin CK-MB (CK-2) C-Reactive Protein NT-Pro-B Natriuret Pep Total Protein Albumin Arterial Blood Glucose Urine WBC (Auto) Urine Creatinine 01/02/20 01/02/20 01/02/20 12:15 14:06 17:58 WBC RBC Hgb Hct MCHC RDW MCV MCH Lymph % (Auto) Edwards % (Auto) Edwards # Eos # Lymph # (Auto) Edwards # (Auto) Eos # (Auto) Seg Neutrophils % Seg Neuts % (Manual) Baso # (Auto) Lymphocytes % (Manual) Monocytes % (Manual) Eosinophils % (Manual) Basophils % (Manual) Seg Neutrophils # Seg Neutrophils # Man Lymphocytes # (Manual) Monocytes # (Manual) Eosinophils # (Manual) Nucleated RBC % Basophils # (Manual) PT INR APTT Heparin Anti-Xa Level < 0.10 L ABG pH POC ABG pO2 ABG pO2 ABG HCO3 ABG O2 Saturation ABG Base Excess POC ABG pCO2 ABG Hemoglobin ABG Oxyhemoglobin ABG Chloride ABG Glucose Oxyhemoglobin Sodium Potassium Chloride Carbon Dioxide BUN Creatinine Glucose POC Glucose 190 H 198 H Lactic Acid Calcium Phosphorus Magnesium AST ALT Lactate Dehydrogenase Total Bilirubin Direct Bilirubin CK-MB (CK-2) C-Reactive Protein NT-Pro-B Natriuret Pep Total Protein Albumin Arterial Blood Glucose Urine WBC (Auto) Urine Creatinine 01/02/20 01/02/20 01/03/20 21:43 23:33 05:42 WBC RBC Hgb Hct MCHC RDW MCV MCH Lymph % (Auto) Edwards % (Auto) Edwards # Eos # Lymph # (Auto) Edwards # (Auto) Eos # (Auto) Seg Neutrophils % Seg Neuts % (Manual) Baso # (Auto) Lymphocytes % (Manual) Monocytes % (Manual) Eosinophils % (Manual) Basophils % (Manual) Seg Neutrophils # Seg Neutrophils # Man Lymphocytes # (Manual) Monocytes # (Manual) Eosinophils # (Manual) Nucleated RBC % Basophils # (Manual) PT INR APTT Heparin Anti-Xa Level 0.10 L ABG pH POC ABG pO2 ABG pO2 ABG HCO3 ABG O2 Saturation ABG Base Excess POC ABG pCO2 ABG Hemoglobin ABG Oxyhemoglobin ABG Chloride ABG Glucose Oxyhemoglobin Sodium Potassium Chloride Carbon Dioxide BUN Creatinine Glucose POC Glucose 180 H 163 H Lactic Acid Calcium Phosphorus Magnesium AST ALT Lactate Dehydrogenase Total Bilirubin Direct Bilirubin CK-MB (CK-2) C-Reactive Protein NT-Pro-B Natriuret Pep Total Protein Albumin Arterial Blood Glucose Urine WBC (Auto) Urine Creatinine 01/03/20 01/03/20 01/03/20 06:50 07:25 07:45 WBC 12.1 H RBC 3.35 L Hgb 9.0 L Hct 28.9 L MCHC 31 L RDW 16.6 H MCV MCH 27 L Lymph % (Auto) 13.0 L Edwards % (Auto) 8.6 H Edwards # Eos # Lymph # (Auto) Edwards # (Auto) 1.0 H Eos # (Auto) Seg Neutrophils % 75.9 H Seg Neuts % (Manual) Baso # (Auto) Lymphocytes % (Manual) Monocytes % (Manual) Eosinophils % (Manual) Basophils % (Manual) Seg Neutrophils # 9.2 H Seg Neutrophils # Man Lymphocytes # (Manual) Monocytes # (Manual) Eosinophils # (Manual) Nucleated RBC % Basophils # (Manual) PT INR APTT Heparin Anti-Xa Level 0.29 L ABG pH POC ABG pO2 ABG pO2 ABG HCO3 ABG O2 Saturation ABG Base Excess POC ABG pCO2 ABG Hemoglobin ABG Oxyhemoglobin ABG Chloride ABG Glucose Oxyhemoglobin Sodium Potassium 3.3 L D Chloride Carbon Dioxide 35 H D BUN 23 H Creatinine 0.6 L Glucose 149 H POC Glucose Lactic Acid Calcium Phosphorus Magnesium AST ALT 88 H Lactate Dehydrogenase Total Bilirubin Direct Bilirubin CK-MB (CK-2) C-Reactive Protein NT-Pro-B Natriuret Pep Total Protein 6.2 L Albumin 2.9 L Arterial Blood Glucose Urine WBC (Auto) Urine Creatinine 01/03/20 01/03/20 01/03/20 12:05 17:42 18:30 WBC RBC Hgb Hct MCHC RDW MCV MCH Lymph % (Auto) Edwards % (Auto) Edwards # Eos # Lymph # (Auto) Edwards # (Auto) Eos # (Auto) Seg Neutrophils % Seg Neuts % (Manual) Baso # (Auto) Lymphocytes % (Manual) Monocytes % (Manual) Eosinophils % (Manual) Basophils % (Manual) Seg Neutrophils # Seg Neutrophils # Man Lymphocytes # (Manual) Monocytes # (Manual) Eosinophils # (Manual) Nucleated RBC % Basophils # (Manual) PT INR APTT Heparin Anti-Xa Level ABG pH POC ABG pO2 ABG pO2 70.7 L ABG HCO3 36.1 H ABG O2 Saturation 94.4 L ABG Base Excess 10.0 H POC ABG pCO2 ABG Hemoglobin 9.7 L ABG Oxyhemoglobin ABG Chloride ABG Glucose Oxyhemoglobin 91.8 L Sodium Potassium Chloride Carbon Dioxide BUN Creatinine Glucose POC Glucose 128 H 132 H Lactic Acid Calcium Phosphorus Magnesium AST ALT Lactate Dehydrogenase Total Bilirubin Direct Bilirubin CK-MB (CK-2) C-Reactive Protein NT-Pro-B Natriuret Pep Total Protein Albumin Arterial Blood Glucose Urine WBC (Auto) Urine Creatinine 01/04/20 01/04/20 01/04/20 00:10 04:26 05:23 WBC RBC Hgb Hct MCHC RDW MCV MCH Lymph % (Auto) Edwards % (Auto) Edwards # Eos # Lymph # (Auto) Edwards # (Auto) Eos # (Auto) Seg Neutrophils % Seg Neuts % (Manual) Baso # (Auto) Lymphocytes % (Manual) Monocytes % (Manual) Eosinophils % (Manual) Basophils % (Manual) Seg Neutrophils # Seg Neutrophils # Man Lymphocytes # (Manual) Monocytes # (Manual) Eosinophils # (Manual) Nucleated RBC % Basophils # (Manual) PT INR APTT Heparin Anti-Xa Level 0.16 L ABG pH POC ABG pO2 ABG pO2 ABG HCO3 ABG O2 Saturation ABG Base Excess POC ABG pCO2 ABG Hemoglobin ABG Oxyhemoglobin ABG Chloride ABG Glucose Oxyhemoglobin Sodium Potassium Chloride Carbon Dioxide BUN Creatinine Glucose POC Glucose 121 H 119 H Lactic Acid Calcium Phosphorus Magnesium AST ALT Lactate Dehydrogenase Total Bilirubin Direct Bilirubin CK-MB (CK-2) C-Reactive Protein NT-Pro-B Natriuret Pep Total Protein Albumin Arterial Blood Glucose Urine WBC (Auto) Urine Creatinine 01/04/20 01/04/20 01/04/20 09:50 09:50 12:18 WBC 15.4 H RBC 3.30 L Hgb 8.7 L Hct 28.2 L MCHC 31 L RDW 17.0 H MCV MCH 26 L Lymph % (Auto) Edwards % (Auto) 7.6 H Edwards # Eos # Lymph # (Auto) Edwards # (Auto) 1.2 H Eos # (Auto) Seg Neutrophils % 75.4 H Seg Neuts % (Manual) Baso # (Auto) Lymphocytes % (Manual) Monocytes % (Manual) Eosinophils % (Manual) Basophils % (Manual) Seg Neutrophils # 11.6 H Seg Neutrophils # Man Lymphocytes # (Manual) Monocytes # (Manual) Eosinophils # (Manual) Nucleated RBC % Basophils # (Manual) PT INR APTT Heparin Anti-Xa Level ABG pH POC ABG pO2 ABG pO2 ABG HCO3 ABG O2 Saturation ABG Base Excess POC ABG pCO2 ABG Hemoglobin ABG Oxyhemoglobin ABG Chloride ABG Glucose Oxyhemoglobin Sodium 148 H Potassium 3.5 L Chloride Carbon Dioxide 32 H BUN Creatinine 0.6 L Glucose 114 H POC Glucose 111 H Lactic Acid Calcium Phosphorus Magnesium AST ALT 59 H Lactate Dehydrogenase Total Bilirubin Direct Bilirubin CK-MB (CK-2) C-Reactive Protein NT-Pro-B Natriuret Pep Total Protein Albumin 2.6 L Arterial Blood Glucose Urine WBC (Auto) Urine Creatinine 01/05/20 01/05/20 01/05/20 04:05 04:05 05:19 WBC 11.7 H RBC 3.50 L Hgb 9.3 L Hct 29.9 L MCHC 31 L RDW 16.6 H MCV MCH 27 L Lymph % (Auto) 13.1 L Edwards % (Auto) 9.7 H Edwards # Eos # Lymph # (Auto) Edwards # (Auto) 1.1 H Eos # (Auto) Seg Neutrophils % 74.0 H Seg Neuts % (Manual) Baso # (Auto) Lymphocytes % (Manual) Monocytes % (Manual) Eosinophils % (Manual) Basophils % (Manual) Seg Neutrophils # 8.6 H Seg Neutrophils # Man Lymphocytes # (Manual) Monocytes # (Manual) Eosinophils # (Manual) Nucleated RBC % Basophils # (Manual) PT INR APTT Heparin Anti-Xa Level ABG pH POC ABG pO2 ABG pO2 ABG HCO3 ABG O2 Saturation ABG Base Excess POC ABG pCO2 ABG Hemoglobin ABG Oxyhemoglobin ABG Chloride ABG Glucose Oxyhemoglobin Sodium 151 H Potassium Chloride Carbon Dioxide 34 H BUN Creatinine 0.7 L Glucose POC Glucose 112 H Lactic Acid Calcium Phosphorus Magnesium AST ALT 59 H Lactate Dehydrogenase Total Bilirubin Direct Bilirubin CK-MB (CK-2) C-Reactive Protein NT-Pro-B Natriuret Pep Total Protein 5.8 L Albumin 2.6 L Arterial Blood Glucose Urine WBC (Auto) Urine Creatinine 01/05/20 01/06/20 01/06/20 16:04 00:23 04:44 WBC RBC 3.36 L Hgb 8.9 L Hct 28.7 L MCHC 31 L RDW 16.9 H MCV MCH 26 L Lymph % (Auto) Edwards % (Auto) 9.4 H Edwards # Eos # Lymph # (Auto) Edwards # (Auto) Eos # (Auto) Seg Neutrophils % Seg Neuts % (Manual) Baso # (Auto) Lymphocytes % (Manual) Monocytes % (Manual) Eosinophils % (Manual) Basophils % (Manual) Seg Neutrophils # Seg Neutrophils # Man Lymphocytes # (Manual) Monocytes # (Manual) Eosinophils # (Manual) Nucleated RBC % Basophils # (Manual) PT INR APTT Heparin Anti-Xa Level ABG pH POC ABG pO2 ABG pO2 ABG HCO3 ABG O2 Saturation ABG Base Excess POC ABG pCO2 ABG Hemoglobin ABG Oxyhemoglobin ABG Chloride ABG Glucose Oxyhemoglobin Sodium 151 H Potassium 3.2 L Chloride Carbon Dioxide 34 H BUN Creatinine 0.6 L Glucose POC Glucose 107 H Lactic Acid Calcium Phosphorus Magnesium AST ALT Lactate Dehydrogenase Total Bilirubin Direct Bilirubin CK-MB (CK-2) C-Reactive Protein NT-Pro-B Natriuret Pep Total Protein Albumin Arterial Blood Glucose Urine WBC (Auto) Urine Creatinine 01/06/20 01/06/20 01/06/20 04:44 05:33 12:04 WBC RBC Hgb Hct MCHC RDW MCV MCH Lymph % (Auto) Edwards % (Auto) Edwards # Eos # Lymph # (Auto) Edwards # (Auto) Eos # (Auto) Seg Neutrophils % Seg Neuts % (Manual) Baso # (Auto) Lymphocytes % (Manual) Monocytes % (Manual) Eosinophils % (Manual) Basophils % (Manual) Seg Neutrophils # Seg Neutrophils # Man Lymphocytes # (Manual) Monocytes # (Manual) Eosinophils # (Manual) Nucleated RBC % Basophils # (Manual) PT INR APTT Heparin Anti-Xa Level ABG pH POC ABG pO2 ABG pO2 ABG HCO3 ABG O2 Saturation ABG Base Excess POC ABG pCO2 ABG Hemoglobin ABG Oxyhemoglobin ABG Chloride ABG Glucose Oxyhemoglobin Sodium 151 H Potassium 3.4 L Chloride Carbon Dioxide 33 H BUN Creatinine 0.6 L Glucose 118 H POC Glucose 118 H 123 H Lactic Acid Calcium Phosphorus Magnesium AST ALT Lactate Dehydrogenase Total Bilirubin Direct Bilirubin CK-MB (CK-2) C-Reactive Protein NT-Pro-B Natriuret Pep Total Protein 6.2 L Albumin 2.6 L Arterial Blood Glucose Urine WBC (Auto) Urine Creatinine 01/06/20 01/07/20 01/07/20 17:54 00:06 04:10 WBC RBC 3.42 L Hgb 8.9 L Hct 29.0 L MCHC 31 L RDW 17.1 H MCV MCH 26 L Lymph % (Auto) Edwards % (Auto) 8.4 H Edwards # Eos # Lymph # (Auto) Edwards # (Auto) Eos # (Auto) Seg Neutrophils % Seg Neuts % (Manual) Baso # (Auto) Lymphocytes % (Manual) Monocytes % (Manual) Eosinophils % (Manual) Basophils % (Manual) Seg Neutrophils # Seg Neutrophils # Man Lymphocytes # (Manual) Monocytes # (Manual) Eosinophils # (Manual) Nucleated RBC % Basophils # (Manual) PT INR APTT Heparin Anti-Xa Level ABG pH POC ABG pO2 ABG pO2 ABG HCO3 ABG O2 Saturation ABG Base Excess POC ABG pCO2 ABG Hemoglobin ABG Oxyhemoglobin ABG Chloride ABG Glucose Oxyhemoglobin Sodium Potassium Chloride Carbon Dioxide BUN Creatinine Glucose POC Glucose 112 H 126 H Lactic Acid Calcium Phosphorus Magnesium AST ALT Lactate Dehydrogenase Total Bilirubin Direct Bilirubin CK-MB (CK-2) C-Reactive Protein NT-Pro-B Natriuret Pep Total Protein Albumin Arterial Blood Glucose Urine WBC (Auto) Urine Creatinine 01/07/20 01/07/20 01/07/20 04:10 05:59 12:27 WBC RBC Hgb Hct MCHC RDW MCV MCH Lymph % (Auto) Edwards % (Auto) Edwards # Eos # Lymph # (Auto) Edwards # (Auto) Eos # (Auto) Seg Neutrophils % Seg Neuts % (Manual) Baso # (Auto) Lymphocytes % (Manual) Monocytes % (Manual) Eosinophils % (Manual) Basophils % (Manual) Seg Neutrophils # Seg Neutrophils # Man Lymphocytes # (Manual) Monocytes # (Manual) Eosinophils # (Manual) Nucleated RBC % Basophils # (Manual) PT INR APTT Heparin Anti-Xa Level ABG pH POC ABG pO2 ABG pO2 ABG HCO3 ABG O2 Saturation ABG Base Excess POC ABG pCO2 ABG Hemoglobin ABG Oxyhemoglobin ABG Chloride ABG Glucose Oxyhemoglobin Sodium 153 H Potassium 3.5 L Chloride Carbon Dioxide 34 H BUN Creatinine 0.6 L Glucose 121 H POC Glucose 121 H 126 H Lactic Acid Calcium Phosphorus Magnesium AST ALT Lactate Dehydrogenase Total Bilirubin Direct Bilirubin CK-MB (CK-2) C-Reactive Protein NT-Pro-B Natriuret Pep Total Protein 5.9 L Albumin 2.4 L Arterial Blood Glucose Urine WBC (Auto) Urine Creatinine 01/07/20 01/08/20 01/08/20 18:12 00:03 05:41 WBC RBC Hgb Hct MCHC RDW MCV MCH Lymph % (Auto) Edwards % (Auto) Edwards # Eos # Lymph # (Auto) Edwards # (Auto) Eos # (Auto) Seg Neutrophils % Seg Neuts % (Manual) Baso # (Auto) Lymphocytes % (Manual) Monocytes % (Manual) Eosinophils % (Manual) Basophils % (Manual) Seg Neutrophils # Seg Neutrophils # Man Lymphocytes # (Manual) Monocytes # (Manual) Eosinophils # (Manual) Nucleated RBC % Basophils # (Manual) PT INR APTT Heparin Anti-Xa Level ABG pH POC ABG pO2 ABG pO2 ABG HCO3 ABG O2 Saturation ABG Base Excess POC ABG pCO2 ABG Hemoglobin ABG Oxyhemoglobin ABG Chloride ABG Glucose Oxyhemoglobin Sodium Potassium Chloride Carbon Dioxide BUN Creatinine Glucose POC Glucose 124 H 130 H 138 H Lactic Acid Calcium Phosphorus Magnesium AST ALT Lactate Dehydrogenase Total Bilirubin Direct Bilirubin CK-MB (CK-2) C-Reactive Protein NT-Pro-B Natriuret Pep Total Protein Albumin Arterial Blood Glucose Urine WBC (Auto) Urine Creatinine 01/08/20 01/08/20 01/08/20 09:28 11:42 18:21 WBC RBC Hgb Hct MCHC RDW MCV MCH Lymph % (Auto) Edwards % (Auto) Edwards # Eos # Lymph # (Auto) Edwards # (Auto) Eos # (Auto) Seg Neutrophils % Seg Neuts % (Manual) Baso # (Auto) Lymphocytes % (Manual) Monocytes % (Manual) Eosinophils % (Manual) Basophils % (Manual) Seg Neutrophils # Seg Neutrophils # Man Lymphocytes # (Manual) Monocytes # (Manual) Eosinophils # (Manual) Nucleated RBC % Basophils # (Manual) PT INR APTT Heparin Anti-Xa Level ABG pH POC ABG pO2 ABG pO2 ABG HCO3 ABG O2 Saturation ABG Base Excess POC ABG pCO2 ABG Hemoglobin ABG Oxyhemoglobin ABG Chloride ABG Glucose Oxyhemoglobin Sodium Potassium Chloride Carbon Dioxide BUN Creatinine Glucose POC Glucose 181 H 150 H 129 H Lactic Acid Calcium Phosphorus Magnesium AST ALT Lactate Dehydrogenase Total Bilirubin Direct Bilirubin CK-MB (CK-2) C-Reactive Protein NT-Pro-B Natriuret Pep Total Protein Albumin Arterial Blood Glucose Urine WBC (Auto) Urine Creatinine 01/08/20 01/08/20 01/09/20 19:25 23:55 04:11 WBC RBC 3.43 L Hgb 8.9 L Hct 28.7 L MCHC 31 L RDW 17.6 H MCV MCH 26 L Lymph % (Auto) Edwards % (Auto) 8.6 H Edwards # Eos # Lymph # (Auto) Edwards # (Auto) Eos # (Auto) Seg Neutrophils % Seg Neuts % (Manual) Baso # (Auto) Lymphocytes % (Manual) Monocytes % (Manual) Eosinophils % (Manual) Basophils % (Manual) Seg Neutrophils # Seg Neutrophils # Man Lymphocytes # (Manual) Monocytes # (Manual) Eosinophils # (Manual) Nucleated RBC % Basophils # (Manual) PT INR APTT Heparin Anti-Xa Level ABG pH POC ABG pO2 ABG pO2 ABG HCO3 ABG O2 Saturation ABG Base Excess POC ABG pCO2 ABG Hemoglobin ABG Oxyhemoglobin ABG Chloride ABG Glucose Oxyhemoglobin Sodium Potassium Chloride Carbon Dioxide BUN Creatinine 0.7 L Glucose 117 H POC Glucose 132 H Lactic Acid Calcium Phosphorus Magnesium AST ALT Lactate Dehydrogenase Total Bilirubin Direct Bilirubin CK-MB (CK-2) C-Reactive Protein NT-Pro-B Natriuret Pep Total Protein Albumin Arterial Blood Glucose Urine WBC (Auto) Urine Creatinine 01/09/20 01/09/20 01/09/20 04:11 05:38 22:58 WBC RBC Hgb Hct MCHC RDW MCV MCH Lymph % (Auto) Edwards % (Auto) Edwards # Eos # Lymph # (Auto) Edwards # (Auto) Eos # (Auto) Seg Neutrophils % Seg Neuts % (Manual) Baso # (Auto) Lymphocytes % (Manual) Monocytes % (Manual) Eosinophils % (Manual) Basophils % (Manual) Seg Neutrophils # Seg Neutrophils # Man Lymphocytes # (Manual) Monocytes # (Manual) Eosinophils # (Manual) Nucleated RBC % Basophils # (Manual) PT INR APTT Heparin Anti-Xa Level ABG pH POC ABG pO2 ABG pO2 ABG HCO3 ABG O2 Saturation ABG Base Excess POC ABG pCO2 ABG Hemoglobin ABG Oxyhemoglobin ABG Chloride ABG Glucose Oxyhemoglobin Sodium 147 H Potassium 3.3 L D Chloride Carbon Dioxide 32 H BUN Creatinine 0.6 L Glucose 106 H POC Glucose 107 H 113 H Lactic Acid Calcium Phosphorus Magnesium AST ALT Lactate Dehydrogenase Total Bilirubin Direct Bilirubin CK-MB (CK-2) C-Reactive Protein NT-Pro-B Natriuret Pep Total Protein Albumin Arterial Blood Glucose Urine WBC (Auto) Urine Creatinine 01/10/20 01/10/20 01/10/20 04:05 11:36 17:54 WBC RBC Hgb Hct MCHC RDW MCV MCH Lymph % (Auto) Edwards % (Auto) Edwards # Eos # Lymph # (Auto) Edwards # (Auto) Eos # (Auto) Seg Neutrophils % Seg Neuts % (Manual) Baso # (Auto) Lymphocytes % (Manual) Monocytes % (Manual) Eosinophils % (Manual) Basophils % (Manual) Seg Neutrophils # Seg Neutrophils # Man Lymphocytes # (Manual) Monocytes # (Manual) Eosinophils # (Manual) Nucleated RBC % Basophils # (Manual) PT INR APTT Heparin Anti-Xa Level ABG pH POC ABG pO2 ABG pO2 ABG HCO3 ABG O2 Saturation ABG Base Excess POC ABG pCO2 ABG Hemoglobin ABG Oxyhemoglobin ABG Chloride ABG Glucose Oxyhemoglobin Sodium Potassium Chloride Carbon Dioxide BUN Creatinine 0.7 L Glucose 110 H POC Glucose 129 H 117 H Lactic Acid Calcium Phosphorus Magnesium AST ALT Lactate Dehydrogenase Total Bilirubin Direct Bilirubin CK-MB (CK-2) C-Reactive Protein NT-Pro-B Natriuret Pep Total Protein Albumin Arterial Blood Glucose Urine WBC (Auto) Urine Creatinine 01/10/20 01/11/20 01/11/20 23:52 03:19 12:09 WBC RBC Hgb Hct MCHC RDW MCV MCH Lymph % (Auto) Edwards % (Auto) Edwards # Eos # Lymph # (Auto) Edwards # (Auto) Eos # (Auto) Seg Neutrophils % Seg Neuts % (Manual) Baso # (Auto) Lymphocytes % (Manual) Monocytes % (Manual) Eosinophils % (Manual) Basophils % (Manual) Seg Neutrophils # Seg Neutrophils # Man Lymphocytes # (Manual) Monocytes # (Manual) Eosinophils # (Manual) Nucleated RBC % Basophils # (Manual) PT INR APTT Heparin Anti-Xa Level ABG pH POC ABG pO2 ABG pO2 ABG HCO3 ABG O2 Saturation ABG Base Excess POC ABG pCO2 ABG Hemoglobin ABG Oxyhemoglobin ABG Chloride ABG Glucose Oxyhemoglobin Sodium Potassium Chloride Carbon Dioxide BUN Creatinine Glucose POC Glucose 117 H 136 H 115 H Lactic Acid Calcium Phosphorus Magnesium AST ALT Lactate Dehydrogenase Total Bilirubin Direct Bilirubin CK-MB (CK-2) C-Reactive Protein NT-Pro-B Natriuret Pep Total Protein Albumin Arterial Blood Glucose Urine WBC (Auto) Urine Creatinine 01/11/20 01/11/20 01/12/20 18:27 23:28 00:23 WBC RBC Hgb 9.8 L Hct 31.6 L MCHC 31 L RDW 17.8 H MCV 83 L MCH 26 L Lymph % (Auto) Edwards % (Auto) 8.0 H Edwards # Eos # Lymph # (Auto) Edwards # (Auto) Eos # (Auto) Seg Neutrophils % Seg Neuts % (Manual) Baso # (Auto) Lymphocytes % (Manual) Monocytes % (Manual) Eosinophils % (Manual) Basophils % (Manual) Seg Neutrophils # Seg Neutrophils # Man Lymphocytes # (Manual) Monocytes # (Manual) Eosinophils # (Manual) Nucleated RBC % Basophils # (Manual) PT INR APTT Heparin Anti-Xa Level ABG pH POC ABG pO2 ABG pO2 ABG HCO3 ABG O2 Saturation ABG Base Excess POC ABG pCO2 ABG Hemoglobin ABG Oxyhemoglobin ABG Chloride ABG Glucose Oxyhemoglobin Sodium Potassium Chloride Carbon Dioxide BUN Creatinine Glucose POC Glucose 118 H 122 H Lactic Acid Calcium Phosphorus Magnesium AST ALT Lactate Dehydrogenase Total Bilirubin Direct Bilirubin CK-MB (CK-2) C-Reactive Protein NT-Pro-B Natriuret Pep Total Protein Albumin Arterial Blood Glucose Urine WBC (Auto) Urine Creatinine 01/12/20 01/12/20 01/12/20 00:23 04:18 04:18 WBC RBC Hgb 9.6 L Hct 30.9 L MCHC 31 L RDW 17.3 H MCV 81 L MCH 25 L Lymph % (Auto) Edwards % (Auto) Edwards # Eos # Lymph # (Auto) Edwards # (Auto) Eos # (Auto) Seg Neutrophils % Seg Neuts % (Manual) Baso # (Auto) Lymphocytes % (Manual) Monocytes % (Manual) Eosinophils % (Manual) Basophils % (Manual) Seg Neutrophils # Seg Neutrophils # Man Lymphocytes # (Manual) Monocytes # (Manual) Eosinophils # (Manual) Nucleated RBC % Basophils # (Manual) PT INR APTT Heparin Anti-Xa Level ABG pH POC ABG pO2 ABG pO2 ABG HCO3 ABG O2 Saturation ABG Base Excess POC ABG pCO2 ABG Hemoglobin ABG Oxyhemoglobin ABG Chloride ABG Glucose Oxyhemoglobin Sodium Potassium Chloride Carbon Dioxide BUN Creatinine 0.7 L 0.7 L Glucose 111 H 108 H POC Glucose Lactic Acid Calcium Phosphorus Magnesium AST ALT Lactate Dehydrogenase Total Bilirubin Direct Bilirubin CK-MB (CK-2) C-Reactive Protein NT-Pro-B Natriuret Pep Total Protein Albumin 2.6 L Arterial Blood Glucose Urine WBC (Auto) Urine Creatinine 01/12/20 01/12/20 01/12/20 06:03 12:27 13:58 WBC RBC Hgb Hct MCHC RDW MCV MCH Lymph % (Auto) Edwards % (Auto) Edwards # Eos # Lymph # (Auto) Edwards # (Auto) Eos # (Auto) Seg Neutrophils % Seg Neuts % (Manual) Baso # (Auto) Lymphocytes % (Manual) Monocytes % (Manual) Eosinophils % (Manual) Basophils % (Manual) Seg Neutrophils # Seg Neutrophils # Man Lymphocytes # (Manual) Monocytes # (Manual) Eosinophils # (Manual) Nucleated RBC % Basophils # (Manual) PT INR APTT Heparin Anti-Xa Level ABG pH 7.453 H POC ABG pO2 76.6 L ABG pO2 ABG HCO3 ABG O2 Saturation ABG Base Excess POC ABG pCO2 ABG Hemoglobin 10.3 L ABG Oxyhemoglobin ABG Chloride ABG Glucose 99 H Oxyhemoglobin Sodium Potassium Chloride Carbon Dioxide BUN Creatinine Glucose POC Glucose 128 H 121 H Lactic Acid Calcium Phosphorus Magnesium AST ALT Lactate Dehydrogenase Total Bilirubin Direct Bilirubin CK-MB (CK-2) C-Reactive Protein NT-Pro-B Natriuret Pep Total Protein Albumin Arterial Blood Glucose 99 H Urine WBC (Auto) Urine Creatinine 01/12/20 01/13/20 01/13/20 18:24 12:01 17:46 WBC RBC Hgb Hct MCHC RDW MCV MCH Lymph % (Auto) Edwards % (Auto) Edwards # Eos # Lymph # (Auto) Edwards # (Auto) Eos # (Auto) Seg Neutrophils % Seg Neuts % (Manual) Baso # (Auto) Lymphocytes % (Manual) Monocytes % (Manual) Eosinophils % (Manual) Basophils % (Manual) Seg Neutrophils # Seg Neutrophils # Man Lymphocytes # (Manual) Monocytes # (Manual) Eosinophils # (Manual) Nucleated RBC % Basophils # (Manual) PT INR APTT Heparin Anti-Xa Level ABG pH POC ABG pO2 ABG pO2 ABG HCO3 ABG O2 Saturation ABG Base Excess POC ABG pCO2 ABG Hemoglobin ABG Oxyhemoglobin ABG Chloride ABG Glucose Oxyhemoglobin Sodium Potassium Chloride Carbon Dioxide BUN Creatinine Glucose POC Glucose 119 H 107 H 124 H Lactic Acid Calcium Phosphorus Magnesium AST ALT Lactate Dehydrogenase Total Bilirubin Direct Bilirubin CK-MB (CK-2) C-Reactive Protein NT-Pro-B Natriuret Pep Total Protein Albumin Arterial Blood Glucose Urine WBC (Auto) Urine Creatinine 01/13/20 01/14/20 01/14/20 20:40 00:10 05:33 WBC RBC Hgb Hct MCHC RDW MCV MCH Lymph % (Auto) Edwards % (Auto) Edwards # Eos # Lymph # (Auto) Edwards # (Auto) Eos # (Auto) Seg Neutrophils % Seg Neuts % (Manual) Baso # (Auto) Lymphocytes % (Manual) Monocytes % (Manual) Eosinophils % (Manual) Basophils % (Manual) Seg Neutrophils # Seg Neutrophils # Man Lymphocytes # (Manual) Monocytes # (Manual) Eosinophils # (Manual) Nucleated RBC % Basophils # (Manual) PT INR APTT Heparin Anti-Xa Level ABG pH POC ABG pO2 ABG pO2 65.3 L ABG HCO3 31.8 H ABG O2 Saturation 93.5 L ABG Base Excess 6.7 H POC ABG pCO2 ABG Hemoglobin 13.3 L ABG Oxyhemoglobin ABG Chloride ABG Glucose Oxyhemoglobin 90.9 L Sodium Potassium Chloride Carbon Dioxide BUN Creatinine Glucose POC Glucose 111 H 111 H Lactic Acid Calcium Phosphorus Magnesium AST ALT Lactate Dehydrogenase Total Bilirubin Direct Bilirubin CK-MB (CK-2) C-Reactive Protein NT-Pro-B Natriuret Pep Total Protein Albumin Arterial Blood Glucose Urine WBC (Auto) Urine Creatinine 01/14/20 01/14/20 01/14/20 12:10 16:14 16:14 WBC RBC Hgb 10.6 L Hct 34.2 L MCHC 31 L RDW 18.3 H MCV 83 L MCH 26 L Lymph % (Auto) Edwards % (Auto) 7.4 H Edwards # Eos # Lymph # (Auto) Edwards # (Auto) Eos # (Auto) Seg Neutrophils % 71.9 H Seg Neuts % (Manual) Baso # (Auto) Lymphocytes % (Manual) Monocytes % (Manual) Eosinophils % (Manual) Basophils % (Manual) Seg Neutrophils # Seg Neutrophils # Man Lymphocytes # (Manual) Monocytes # (Manual) Eosinophils # (Manual) Nucleated RBC % Basophils # (Manual) PT INR APTT Heparin Anti-Xa Level ABG pH POC ABG pO2 ABG pO2 ABG HCO3 ABG O2 Saturation ABG Base Excess POC ABG pCO2 ABG Hemoglobin ABG Oxyhemoglobin ABG Chloride ABG Glucose Oxyhemoglobin Sodium Potassium Chloride Carbon Dioxide 31 H BUN Creatinine 0.6 L Glucose 131 H POC Glucose 139 H Lactic Acid Calcium Phosphorus Magnesium AST ALT Lactate Dehydrogenase Total Bilirubin Direct Bilirubin CK-MB (CK-2) C-Reactive Protein NT-Pro-B Natriuret Pep Total Protein Albumin Arterial Blood Glucose Urine WBC (Auto) Urine Creatinine 01/14/20 01/15/20 01/15/20 18:05 00:52 05:35 WBC RBC Hgb Hct MCHC RDW MCV MCH Lymph % (Auto) Edwards % (Auto) Edwards # Eos # Lymph # (Auto) Edwards # (Auto) Eos # (Auto) Seg Neutrophils % Seg Neuts % (Manual) Baso # (Auto) Lymphocytes % (Manual) Monocytes % (Manual) Eosinophils % (Manual) Basophils % (Manual) Seg Neutrophils # Seg Neutrophils # Man Lymphocytes # (Manual) Monocytes # (Manual) Eosinophils # (Manual) Nucleated RBC % Basophils # (Manual) PT INR APTT Heparin Anti-Xa Level ABG pH POC ABG pO2 ABG pO2 ABG HCO3 ABG O2 Saturation ABG Base Excess POC ABG pCO2 ABG Hemoglobin ABG Oxyhemoglobin ABG Chloride ABG Glucose Oxyhemoglobin Sodium Potassium Chloride Carbon Dioxide BUN Creatinine Glucose POC Glucose 147 H 140 H 159 H Lactic Acid Calcium Phosphorus Magnesium AST ALT Lactate Dehydrogenase Total Bilirubin Direct Bilirubin CK-MB (CK-2) C-Reactive Protein NT-Pro-B Natriuret Pep Total Protein Albumin Arterial Blood Glucose Urine WBC (Auto) Urine Creatinine 01/15/20 01/15/20 01/16/20 12:52 17:43 00:32 WBC RBC Hgb Hct MCHC RDW MCV MCH Lymph % (Auto) Edwards % (Auto) Edwards # Eos # Lymph # (Auto) Edwards # (Auto) Eos # (Auto) Seg Neutrophils % Seg Neuts % (Manual) Baso # (Auto) Lymphocytes % (Manual) Monocytes % (Manual) Eosinophils % (Manual) Basophils % (Manual) Seg Neutrophils # Seg Neutrophils # Man Lymphocytes # (Manual) Monocytes # (Manual) Eosinophils # (Manual) Nucleated RBC % Basophils # (Manual) PT INR APTT Heparin Anti-Xa Level ABG pH POC ABG pO2 ABG pO2 ABG HCO3 ABG O2 Saturation ABG Base Excess POC ABG pCO2 ABG Hemoglobin ABG Oxyhemoglobin ABG Chloride ABG Glucose Oxyhemoglobin Sodium Potassium Chloride Carbon Dioxide BUN Creatinine Glucose POC Glucose 164 H 167 H 153 H Lactic Acid Calcium Phosphorus Magnesium AST ALT Lactate Dehydrogenase Total Bilirubin Direct Bilirubin CK-MB (CK-2) C-Reactive Protein NT-Pro-B Natriuret Pep Total Protein Albumin Arterial Blood Glucose Urine WBC (Auto) Urine Creatinine 01/16/20 01/16/20 01/17/20 05:46 11:48 06:38 WBC RBC Hgb Hct MCHC RDW MCV MCH Lymph % (Auto) Edwards % (Auto) Edwards # Eos # Lymph # (Auto) Edwards # (Auto) Eos # (Auto) Seg Neutrophils % Seg Neuts % (Manual) Baso # (Auto) Lymphocytes % (Manual) Monocytes % (Manual) Eosinophils % (Manual) Basophils % (Manual) Seg Neutrophils # Seg Neutrophils # Man Lymphocytes # (Manual) Monocytes # (Manual) Eosinophils # (Manual) Nucleated RBC % Basophils # (Manual) PT INR APTT Heparin Anti-Xa Level ABG pH POC ABG pO2 ABG pO2 ABG HCO3 ABG O2 Saturation ABG Base Excess POC ABG pCO2 ABG Hemoglobin ABG Oxyhemoglobin ABG Chloride ABG Glucose Oxyhemoglobin Sodium Potassium Chloride Carbon Dioxide BUN Creatinine Glucose POC Glucose 163 H 155 H 116 H Lactic Acid Calcium Phosphorus Magnesium AST ALT Lactate Dehydrogenase Total Bilirubin Direct Bilirubin CK-MB (CK-2) C-Reactive Protein NT-Pro-B Natriuret Pep Total Protein Albumin Arterial Blood Glucose Urine WBC (Auto) Urine Creatinine 01/17/20 01/17/20 01/18/20 11:36 17:43 00:12 WBC RBC Hgb Hct MCHC RDW MCV MCH Lymph % (Auto) Edwards % (Auto) Edwards # Eos # Lymph # (Auto) Edwards # (Auto) Eos # (Auto) Seg Neutrophils % Seg Neuts % (Manual) Baso # (Auto) Lymphocytes % (Manual) Monocytes % (Manual) Eosinophils % (Manual) Basophils % (Manual) Seg Neutrophils # Seg Neutrophils # Man Lymphocytes # (Manual) Monocytes # (Manual) Eosinophils # (Manual) Nucleated RBC % Basophils # (Manual) PT INR APTT Heparin Anti-Xa Level ABG pH POC ABG pO2 ABG pO2 ABG HCO3 ABG O2 Saturation ABG Base Excess POC ABG pCO2 ABG Hemoglobin ABG Oxyhemoglobin ABG Chloride ABG Glucose Oxyhemoglobin Sodium Potassium Chloride Carbon Dioxide BUN Creatinine Glucose POC Glucose 110 H 134 H 108 H Lactic Acid Calcium Phosphorus Magnesium AST ALT Lactate Dehydrogenase Total Bilirubin Direct Bilirubin CK-MB (CK-2) C-Reactive Protein NT-Pro-B Natriuret Pep Total Protein Albumin Arterial Blood Glucose Urine WBC (Auto) Urine Creatinine 10/01/18/20 01/18/20 05:37 06:46 06:46 WBC RBC Hgb 10.1 L Hct 32.2 L MCHC 31 L RDW 18.1 H MCV 81 L MCH 25 L Lymph % (Auto) Edwards % (Auto) Edwards # Eos # Lymph # (Auto) Edwards # (Auto) Eos # (Auto) Seg Neutrophils % 71.9 H Seg Neuts % (Manual) Baso # (Auto) Lymphocytes % (Manual) Monocytes % (Manual) Eosinophils % (Manual) Basophils % (Manual) Seg Neutrophils # Seg Neutrophils # Man Lymphocytes # (Manual) Monocytes # (Manual) Eosinophils # (Manual) Nucleated RBC % Basophils # (Manual) PT INR APTT Heparin Anti-Xa Level ABG pH POC ABG pO2 ABG pO2 ABG HCO3 ABG O2 Saturation ABG Base Excess POC ABG pCO2 ABG Hemoglobin ABG Oxyhemoglobin ABG Chloride ABG Glucose Oxyhemoglobin Sodium Potassium Chloride Carbon Dioxide BUN Creatinine 0.7 L Glucose 155 H POC Glucose 168 H Lactic Acid Calcium Phosphorus Magnesium AST ALT Lactate Dehydrogenase Total Bilirubin Direct Bilirubin CK-MB (CK-2) C-Reactive Protein NT-Pro-B Natriuret Pep Total Protein Albumin Arterial Blood Glucose Urine WBC (Auto) Urine Creatinine 01/18/20 01/18/20 01/18/20 12:05 17:14 23:28 WBC RBC Hgb Hct MCHC RDW MCV MCH Lymph % (Auto) Edwards % (Auto) Edwards # Eos # Lymph # (Auto) Edwards # (Auto) Eos # (Auto) Seg Neutrophils % Seg Neuts % (Manual) Baso # (Auto) Lymphocytes % (Manual) Monocytes % (Manual) Eosinophils % (Manual) Basophils % (Manual) Seg Neutrophils # Seg Neutrophils # Man Lymphocytes # (Manual) Monocytes # (Manual) Eosinophils # (Manual) Nucleated RBC % Basophils # (Manual) PT INR APTT Heparin Anti-Xa Level ABG pH POC ABG pO2 ABG pO2 ABG HCO3 ABG O2 Saturation ABG Base Excess POC ABG pCO2 ABG Hemoglobin ABG Oxyhemoglobin ABG Chloride ABG Glucose Oxyhemoglobin Sodium Potassium Chloride Carbon Dioxide BUN Creatinine Glucose POC Glucose 128 H 126 H 128 H Lactic Acid Calcium Phosphorus Magnesium AST ALT Lactate Dehydrogenase Total Bilirubin Direct Bilirubin CK-MB (CK-2) C-Reactive Protein NT-Pro-B Natriuret Pep Total Protein Albumin Arterial Blood Glucose Urine WBC (Auto) Urine Creatinine 01/19/20 01/19/20 01/19/20 05:39 12:33 17:36 WBC RBC Hgb Hct MCHC RDW MCV MCH Lymph % (Auto) Edwards % (Auto) Edwards # Eos # Lymph # (Auto) Edwards # (Auto) Eos # (Auto) Seg Neutrophils % Seg Neuts % (Manual) Baso # (Auto) Lymphocytes % (Manual) Monocytes % (Manual) Eosinophils % (Manual) Basophils % (Manual) Seg Neutrophils # Seg Neutrophils # Man Lymphocytes # (Manual) Monocytes # (Manual) Eosinophils # (Manual) Nucleated RBC % Basophils # (Manual) PT INR APTT Heparin Anti-Xa Level ABG pH POC ABG pO2 ABG pO2 ABG HCO3 ABG O2 Saturation ABG Base Excess POC ABG pCO2 ABG Hemoglobin ABG Oxyhemoglobin ABG Chloride ABG Glucose Oxyhemoglobin Sodium Potassium Chloride Carbon Dioxide BUN Creatinine Glucose POC Glucose 164 H 171 H 152 H Lactic Acid Calcium Phosphorus Magnesium AST ALT Lactate Dehydrogenase Total Bilirubin Direct Bilirubin CK-MB (CK-2) C-Reactive Protein NT-Pro-B Natriuret Pep Total Protein Albumin Arterial Blood Glucose Urine WBC (Auto) Urine Creatinine 01/20/20 01/20/20 01/20/20 00:12 05:20 05:35 WBC RBC Hgb 9.2 L Hct 29.4 L MCHC 31 L RDW 17.9 H MCV 81 L MCH 25 L Lymph % (Auto) Edwards % (Auto) Edwards # Eos # Lymph # (Auto) Edwards # (Auto) Eos # (Auto) Seg Neutrophils % Seg Neuts % (Manual) Baso # (Auto) Lymphocytes % (Manual) Monocytes % (Manual) Eosinophils % (Manual) Basophils % (Manual) Seg Neutrophils # Seg Neutrophils # Man Lymphocytes # (Manual) Monocytes # (Manual) Eosinophils # (Manual) Nucleated RBC % Basophils # (Manual) PT INR APTT Heparin Anti-Xa Level ABG pH POC ABG pO2 ABG pO2 ABG HCO3 ABG O2 Saturation ABG Base Excess POC ABG pCO2 ABG Hemoglobin ABG Oxyhemoglobin ABG Chloride ABG Glucose Oxyhemoglobin Sodium Potassium Chloride Carbon Dioxide BUN Creatinine Glucose POC Glucose 120 H 136 H Lactic Acid Calcium Phosphorus Magnesium AST ALT Lactate Dehydrogenase Total Bilirubin Direct Bilirubin CK-MB (CK-2) C-Reactive Protein NT-Pro-B Natriuret Pep Total Protein Albumin Arterial Blood Glucose Urine WBC (Auto) Urine Creatinine 01/20/20 01/20/20 01/20/20 05:40 11:58 14:55 WBC RBC Hgb 9.0 L Hct 28.3 L MCHC RDW MCV MCH Lymph % (Auto) Edwards % (Auto) Edwards # Eos # Lymph # (Auto) Edwards # (Auto) Eos # (Auto) Seg Neutrophils % Seg Neuts % (Manual) Baso # (Auto) Lymphocytes % (Manual) Monocytes % (Manual) Eosinophils % (Manual) Basophils % (Manual) Seg Neutrophils # Seg Neutrophils # Man Lymphocytes # (Manual) Monocytes # (Manual) Eosinophils # (Manual) Nucleated RBC % Basophils # (Manual) PT INR APTT Heparin Anti-Xa Level ABG pH POC ABG pO2 ABG pO2 ABG HCO3 ABG O2 Saturation ABG Base Excess POC ABG pCO2 ABG Hemoglobin ABG Oxyhemoglobin ABG Chloride ABG Glucose Oxyhemoglobin Sodium Potassium Chloride Carbon Dioxide 32 H BUN 22 H Creatinine 0.7 L Glucose 128 H POC Glucose 152 H Lactic Acid Calcium Phosphorus Magnesium AST ALT Lactate Dehydrogenase Total Bilirubin Direct Bilirubin CK-MB (CK-2) C-Reactive Protein NT-Pro-B Natriuret Pep Total Protein Albumin Arterial Blood Glucose Urine WBC (Auto) Urine Creatinine 01/20/20 01/20/20 01/20/20 14:55 18:14 21:35 WBC RBC Hgb Hct MCHC RDW MCV MCH Lymph % (Auto) Edwards % (Auto) Edwards # Eos # Lymph # (Auto) Edwards # (Auto) Eos # (Auto) Seg Neutrophils % Seg Neuts % (Manual) Baso # (Auto) Lymphocytes % (Manual) Monocytes % (Manual) Eosinophils % (Manual) Basophils % (Manual) Seg Neutrophils # Seg Neutrophils # Man Lymphocytes # (Manual) Monocytes # (Manual) Eosinophils # (Manual) Nucleated RBC % Basophils # (Manual) PT 20.4 H INR 1.72 H APTT 40.6 H Heparin Anti-Xa Level > 2.00 H ABG pH POC ABG pO2 ABG pO2 ABG HCO3 ABG O2 Saturation ABG Base Excess POC ABG pCO2 ABG Hemoglobin ABG Oxyhemoglobin ABG Chloride ABG Glucose Oxyhemoglobin Sodium Potassium Chloride Carbon Dioxide BUN Creatinine Glucose POC Glucose 150 H Lactic Acid Calcium Phosphorus Magnesium AST ALT Lactate Dehydrogenase Total Bilirubin Direct Bilirubin CK-MB (CK-2) C-Reactive Protein NT-Pro-B Natriuret Pep Total Protein Albumin Arterial Blood Glucose Urine WBC (Auto) Urine Creatinine 01/21/20 01/21/20 01/21/20 00:30 05:47 05:59 WBC RBC Hgb Hct MCHC RDW MCV MCH Lymph % (Auto) Edwards % (Auto) Edwards # Eos # Lymph # (Auto) Edwards # (Auto) Eos # (Auto) Seg Neutrophils % Seg Neuts % (Manual) Baso # (Auto) Lymphocytes % (Manual) Monocytes % (Manual) Eosinophils % (Manual) Basophils % (Manual) Seg Neutrophils # Seg Neutrophils # Man Lymphocytes # (Manual) Monocytes # (Manual) Eosinophils # (Manual) Nucleated RBC % Basophils # (Manual) PT INR APTT Heparin Anti-Xa Level 1.93 H ABG pH POC ABG pO2 ABG pO2 ABG HCO3 ABG O2 Saturation ABG Base Excess POC ABG pCO2 ABG Hemoglobin ABG Oxyhemoglobin ABG Chloride ABG Glucose Oxyhemoglobin Sodium Potassium Chloride Carbon Dioxide BUN Creatinine Glucose POC Glucose 126 H 148 H Lactic Acid Calcium Phosphorus Magnesium AST ALT Lactate Dehydrogenase Total Bilirubin Direct Bilirubin CK-MB (CK-2) C-Reactive Protein NT-Pro-B Natriuret Pep Total Protein Albumin Arterial Blood Glucose Urine WBC (Auto) Urine Creatinine 01/21/20 01/21/20 01/21/20 12:32 18:20 23:54 WBC RBC Hgb Hct MCHC RDW MCV MCH Lymph % (Auto) Edwards % (Auto) Edwards # Eos # Lymph # (Auto) Edwards # (Auto) Eos # (Auto) Seg Neutrophils % Seg Neuts % (Manual) Baso # (Auto) Lymphocytes % (Manual) Monocytes % (Manual) Eosinophils % (Manual) Basophils % (Manual) Seg Neutrophils # Seg Neutrophils # Man Lymphocytes # (Manual) Monocytes # (Manual) Eosinophils # (Manual) Nucleated RBC % Basophils # (Manual) PT INR APTT Heparin Anti-Xa Level 1.28 H ABG pH POC ABG pO2 ABG pO2 ABG HCO3 ABG O2 Saturation ABG Base Excess POC ABG pCO2 ABG Hemoglobin ABG Oxyhemoglobin ABG Chloride ABG Glucose Oxyhemoglobin Sodium Potassium Chloride Carbon Dioxide BUN Creatinine Glucose POC Glucose 112 H 146 H Lactic Acid Calcium Phosphorus Magnesium AST ALT Lactate Dehydrogenase Total Bilirubin Direct Bilirubin CK-MB (CK-2) C-Reactive Protein NT-Pro-B Natriuret Pep Total Protein Albumin Arterial Blood Glucose Urine WBC (Auto) Urine Creatinine 01/22/20 01/22/20 01/22/20 04:45 04:45 05:48 WBC RBC Hgb 9.3 L Hct 29.0 L MCHC RDW MCV MCH Lymph % (Auto) Edwards % (Auto) Edwards # Eos # Lymph # (Auto) Edwards # (Auto) Eos # (Auto) Seg Neutrophils % Seg Neuts % (Manual) Baso # (Auto) Lymphocytes % (Manual) Monocytes % (Manual) Eosinophils % (Manual) Basophils % (Manual) Seg Neutrophils # Seg Neutrophils # Man Lymphocytes # (Manual) Monocytes # (Manual) Eosinophils # (Manual) Nucleated RBC % Basophils # (Manual) PT INR APTT Heparin Anti-Xa Level 1.34 H ABG pH POC ABG pO2 ABG pO2 ABG HCO3 ABG O2 Saturation ABG Base Excess POC ABG pCO2 ABG Hemoglobin ABG Oxyhemoglobin ABG Chloride ABG Glucose Oxyhemoglobin Sodium Potassium Chloride Carbon Dioxide BUN Creatinine Glucose POC Glucose 142 H Lactic Acid Calcium Phosphorus Magnesium AST ALT Lactate Dehydrogenase Total Bilirubin Direct Bilirubin CK-MB (CK-2) C-Reactive Protein NT-Pro-B Natriuret Pep Total Protein Albumin Arterial Blood Glucose Urine WBC (Auto) Urine Creatinine 01/22/20 01/22/20 01/22/20 08:09 08:22 09:58 WBC RBC Hgb Hct MCHC RDW MCV MCH Lymph % (Auto) Edwards % (Auto) Edwards # Eos # Lymph # (Auto) Edwards # (Auto) Eos # (Auto) Seg Neutrophils % Seg Neuts % (Manual) Baso # (Auto) Lymphocytes % (Manual) Monocytes % (Manual) Eosinophils % (Manual) Basophils % (Manual) Seg Neutrophils # Seg Neutrophils # Man Lymphocytes # (Manual) Monocytes # (Manual) Eosinophils # (Manual) Nucleated RBC % Basophils # (Manual) PT 16.9 H INR 1.34 H APTT Heparin Anti-Xa Level ABG pH POC ABG pO2 ABG pO2 ABG HCO3 ABG O2 Saturation ABG Base Excess POC ABG pCO2 ABG Hemoglobin ABG Oxyhemoglobin ABG Chloride ABG Glucose Oxyhemoglobin Sodium Potassium Chloride 97.8 L Carbon Dioxide BUN 29 H Creatinine Glucose 128 H POC Glucose 131 H Lactic Acid Calcium Phosphorus Magnesium AST ALT Lactate Dehydrogenase Total Bilirubin Direct Bilirubin CK-MB (CK-2) C-Reactive Protein NT-Pro-B Natriuret Pep Total Protein Albumin Arterial Blood Glucose Urine WBC (Auto) Urine Creatinine 01/22/20 01/22/20 01/22/20 12:44 16:13 18:18 WBC RBC Hgb Hct MCHC RDW MCV MCH Lymph % (Auto) Edwards % (Auto) Edwards # Eos # Lymph # (Auto) Edwards # (Auto) Eos # (Auto) Seg Neutrophils % Seg Neuts % (Manual) Baso # (Auto) Lymphocytes % (Manual) Monocytes % (Manual) Eosinophils % (Manual) Basophils % (Manual) Seg Neutrophils # Seg Neutrophils # Man Lymphocytes # (Manual) Monocytes # (Manual) Eosinophils # (Manual) Nucleated RBC % Basophils # (Manual) PT INR APTT Heparin Anti-Xa Level ABG pH POC ABG pO2 ABG pO2 ABG HCO3 ABG O2 Saturation ABG Base Excess POC ABG pCO2 ABG Hemoglobin ABG Oxyhemoglobin ABG Chloride ABG Glucose Oxyhemoglobin Sodium Potassium Chloride Carbon Dioxide BUN Creatinine Glucose POC Glucose 156 H 133 H 155 H Lactic Acid Calcium Phosphorus Magnesium AST ALT Lactate Dehydrogenase Total Bilirubin Direct Bilirubin CK-MB (CK-2) C-Reactive Protein NT-Pro-B Natriuret Pep Total Protein Albumin Arterial Blood Glucose Urine WBC (Auto) Urine Creatinine 01/22/20 01/23/20 01/23/20 23:22 05:37 12:59 WBC RBC Hgb Hct MCHC RDW MCV MCH Lymph % (Auto) Edwards % (Auto) Edwards # Eos # Lymph # (Auto) Edwards # (Auto) Eos # (Auto) Seg Neutrophils % Seg Neuts % (Manual) Baso # (Auto) Lymphocytes % (Manual) Monocytes % (Manual) Eosinophils % (Manual) Basophils % (Manual) Seg Neutrophils # Seg Neutrophils # Man Lymphocytes # (Manual) Monocytes # (Manual) Eosinophils # (Manual) Nucleated RBC % Basophils # (Manual) PT INR APTT Heparin Anti-Xa Level ABG pH POC ABG pO2 ABG pO2 ABG HCO3 ABG O2 Saturation ABG Base Excess POC ABG pCO2 ABG Hemoglobin ABG Oxyhemoglobin ABG Chloride ABG Glucose Oxyhemoglobin Sodium Potassium Chloride Carbon Dioxide BUN Creatinine Glucose POC Glucose 148 H 163 H 175 H Lactic Acid Calcium Phosphorus Magnesium AST ALT Lactate Dehydrogenase Total Bilirubin Direct Bilirubin CK-MB (CK-2) C-Reactive Protein NT-Pro-B Natriuret Pep Total Protein Albumin Arterial Blood Glucose Urine WBC (Auto) Urine Creatinine 01/23/20 01/23/20 01/24/20 17:28 23:56 04:30 WBC RBC 3.46 L Hgb 8.8 L Hct 27.8 L MCHC RDW 18.2 H MCV 81 L MCH 25 L Lymph % (Auto) Edwards % (Auto) 7.8 H Edwards # Eos # Lymph # (Auto) Edwards # (Auto) Eos # (Auto) Seg Neutrophils % Seg Neuts % (Manual) Baso # (Auto) Lymphocytes % (Manual) Monocytes % (Manual) Eosinophils % (Manual) Basophils % (Manual) Seg Neutrophils # Seg Neutrophils # Man Lymphocytes # (Manual) Monocytes # (Manual) Eosinophils # (Manual) Nucleated RBC % Basophils # (Manual) PT INR APTT Heparin Anti-Xa Level ABG pH POC ABG pO2 ABG pO2 ABG HCO3 ABG O2 Saturation ABG Base Excess POC ABG pCO2 ABG Hemoglobin ABG Oxyhemoglobin ABG Chloride ABG Glucose Oxyhemoglobin Sodium Potassium Chloride Carbon Dioxide BUN Creatinine Glucose POC Glucose 165 H 177 H Lactic Acid Calcium Phosphorus Magnesium AST ALT Lactate Dehydrogenase Total Bilirubin Direct Bilirubin CK-MB (CK-2) C-Reactive Protein NT-Pro-B Natriuret Pep Total Protein Albumin Arterial Blood Glucose Urine WBC (Auto) Urine Creatinine 01/24/20 01/24/20 01/24/20 04:30 07:18 12:06 WBC RBC Hgb Hct MCHC RDW MCV MCH Lymph % (Auto) Edwards % (Auto) Edwards # Eos # Lymph # (Auto) Edwards # (Auto) Eos # (Auto) Seg Neutrophils % Seg Neuts % (Manual) Baso # (Auto) Lymphocytes % (Manual) Monocytes % (Manual) Eosinophils % (Manual) Basophils % (Manual) Seg Neutrophils # Seg Neutrophils # Man Lymphocytes # (Manual) Monocytes # (Manual) Eosinophils # (Manual) Nucleated RBC % Basophils # (Manual) PT INR APTT Heparin Anti-Xa Level ABG pH POC ABG pO2 ABG pO2 ABG HCO3 ABG O2 Saturation ABG Base Excess POC ABG pCO2 ABG Hemoglobin ABG Oxyhemoglobin ABG Chloride ABG Glucose Oxyhemoglobin Sodium Potassium Chloride 97.9 L Carbon Dioxide BUN 31 H Creatinine Glucose 146 H POC Glucose 151 H 133 H Lactic Acid Calcium Phosphorus Magnesium AST ALT Lactate Dehydrogenase Total Bilirubin Direct Bilirubin CK-MB (CK-2) C-Reactive Protein NT-Pro-B Natriuret Pep Total Protein Albumin Arterial Blood Glucose Urine WBC (Auto) Urine Creatinine 01/24/20 01/25/20 01/25/20 17:36 00:08 04:25 WBC RBC 3.50 L Hgb 8.7 L Hct 27.9 L MCHC 31 L RDW 18.2 H MCV 80 L MCH 25 L Lymph % (Auto) Edwards % (Auto) 8.5 H Edwards # Eos # Lymph # (Auto) Edwards # (Auto) Eos # (Auto) Seg Neutrophils % Seg Neuts % (Manual) Baso # (Auto) Lymphocytes % (Manual) Monocytes % (Manual) Eosinophils % (Manual) Basophils % (Manual) Seg Neutrophils # Seg Neutrophils # Man Lymphocytes # (Manual) Monocytes # (Manual) Eosinophils # (Manual) Nucleated RBC % Basophils # (Manual) PT INR APTT Heparin Anti-Xa Level ABG pH POC ABG pO2 ABG pO2 ABG HCO3 ABG O2 Saturation ABG Base Excess POC ABG pCO2 ABG Hemoglobin ABG Oxyhemoglobin ABG Chloride ABG Glucose Oxyhemoglobin Sodium Potassium Chloride Carbon Dioxide BUN Creatinine Glucose POC Glucose 133 H 129 H Lactic Acid Calcium Phosphorus Magnesium AST ALT Lactate Dehydrogenase Total Bilirubin Direct Bilirubin CK-MB (CK-2) C-Reactive Protein NT-Pro-B Natriuret Pep Total Protein Albumin Arterial Blood Glucose Urine WBC (Auto) Urine Creatinine 01/25/20 01/25/20 01/25/20 04:25 05:38 11:52 WBC RBC Hgb Hct MCHC RDW MCV MCH Lymph % (Auto) Edwards % (Auto) Edwards # Eos # Lymph # (Auto) Edwards # (Auto) Eos # (Auto) Seg Neutrophils % Seg Neuts % (Manual) Baso # (Auto) Lymphocytes % (Manual) Monocytes % (Manual) Eosinophils % (Manual) Basophils % (Manual) Seg Neutrophils # Seg Neutrophils # Man Lymphocytes # (Manual) Monocytes # (Manual) Eosinophils # (Manual) Nucleated RBC % Basophils # (Manual) PT INR APTT Heparin Anti-Xa Level ABG pH POC ABG pO2 ABG pO2 ABG HCO3 ABG O2 Saturation ABG Base Excess POC ABG pCO2 ABG Hemoglobin ABG Oxyhemoglobin ABG Chloride ABG Glucose Oxyhemoglobin Sodium Potassium Chloride Carbon Dioxide BUN 30 H Creatinine Glucose 134 H POC Glucose 129 H 134 H Lactic Acid Calcium Phosphorus Magnesium AST ALT Lactate Dehydrogenase Total Bilirubin Direct Bilirubin CK-MB (CK-2) C-Reactive Protein NT-Pro-B Natriuret Pep Total Protein Albumin Arterial Blood Glucose Urine WBC (Auto) Urine Creatinine 01/25/20 01/25/20 01/26/20 17:13 21:02 00:59 WBC RBC Hgb Hct MCHC RDW MCV MCH Lymph % (Auto) Edwards % (Auto) Edwards # Eos # Lymph # (Auto) Edwards # (Auto) Eos # (Auto) Seg Neutrophils % Seg Neuts % (Manual) Baso # (Auto) Lymphocytes % (Manual) Monocytes % (Manual) Eosinophils % (Manual) Basophils % (Manual) Seg Neutrophils # Seg Neutrophils # Man Lymphocytes # (Manual) Monocytes # (Manual) Eosinophils # (Manual) Nucleated RBC % Basophils # (Manual) PT INR APTT Heparin Anti-Xa Level ABG pH POC ABG pO2 ABG pO2 57.5 L ABG HCO3 31.7 H ABG O2 Saturation 90.3 L ABG Base Excess 6.6 H POC ABG pCO2 ABG Hemoglobin 13.0 L ABG Oxyhemoglobin ABG Chloride ABG Glucose Oxyhemoglobin 87.5 L Sodium Potassium Chloride Carbon Dioxide BUN Creatinine Glucose POC Glucose 124 H 196 H Lactic Acid Calcium Phosphorus Magnesium AST ALT Lactate Dehydrogenase Total Bilirubin Direct Bilirubin CK-MB (CK-2) C-Reactive Protein NT-Pro-B Natriuret Pep Total Protein Albumin Arterial Blood Glucose Urine WBC (Auto) Urine Creatinine 01/26/20 01/26/20 01/26/20 03:20 05:46 12:46 WBC RBC Hgb 9.2 L Hct 29.4 L MCHC RDW MCV MCH Lymph % (Auto) Edwards % (Auto) Edwards # Eos # Lymph # (Auto) Edwards # (Auto) Eos # (Auto) Seg Neutrophils % Seg Neuts % (Manual) Baso # (Auto) Lymphocytes % (Manual) Monocytes % (Manual) Eosinophils % (Manual) Basophils % (Manual) Seg Neutrophils # Seg Neutrophils # Man Lymphocytes # (Manual) Monocytes # (Manual) Eosinophils # (Manual) Nucleated RBC % Basophils # (Manual) PT INR APTT Heparin Anti-Xa Level ABG pH POC ABG pO2 ABG pO2 ABG HCO3 ABG O2 Saturation ABG Base Excess POC ABG pCO2 ABG Hemoglobin ABG Oxyhemoglobin ABG Chloride ABG Glucose Oxyhemoglobin Sodium Potassium Chloride Carbon Dioxide BUN Creatinine Glucose POC Glucose 141 H 122 H Lactic Acid Calcium Phosphorus Magnesium AST ALT Lactate Dehydrogenase Total Bilirubin Direct Bilirubin CK-MB (CK-2) C-Reactive Protein NT-Pro-B Natriuret Pep Total Protein Albumin Arterial Blood Glucose Urine WBC (Auto) Urine Creatinine 01/26/20 01/26/20 01/27/20 18:03 23:55 04:47 WBC RBC Hgb Hct MCHC RDW MCV MCH Lymph % (Auto) Edwards % (Auto) Edwards # Eos # Lymph # (Auto) Edwards # (Auto) Eos # (Auto) Seg Neutrophils % Seg Neuts % (Manual) Baso # (Auto) Lymphocytes % (Manual) Monocytes % (Manual) Eosinophils % (Manual) Basophils % (Manual) Seg Neutrophils # Seg Neutrophils # Man Lymphocytes # (Manual) Monocytes # (Manual) Eosinophils # (Manual) Nucleated RBC % Basophils # (Manual) PT INR APTT Heparin Anti-Xa Level ABG pH POC ABG pO2 ABG pO2 ABG HCO3 ABG O2 Saturation ABG Base Excess POC ABG pCO2 ABG Hemoglobin ABG Oxyhemoglobin ABG Chloride ABG Glucose Oxyhemoglobin Sodium Potassium Chloride Carbon Dioxide BUN 30 H Creatinine 0.7 L Glucose 135 H POC Glucose 142 H 159 H Lactic Acid Calcium Phosphorus Magnesium AST ALT Lactate Dehydrogenase Total Bilirubin Direct Bilirubin CK-MB (CK-2) C-Reactive Protein NT-Pro-B Natriuret Pep Total Protein Albumin Arterial Blood Glucose Urine WBC (Auto) Urine Creatinine 01/27/20 01/27/20 01/27/20 05:43 12:06 17:16 WBC RBC Hgb Hct MCHC RDW MCV MCH Lymph % (Auto) Edwards % (Auto) Edwards # Eos # Lymph # (Auto) Edwards # (Auto) Eos # (Auto) Seg Neutrophils % Seg Neuts % (Manual) Baso # (Auto) Lymphocytes % (Manual) Monocytes % (Manual) Eosinophils % (Manual) Basophils % (Manual) Seg Neutrophils # Seg Neutrophils # Man Lymphocytes # (Manual) Monocytes # (Manual) Eosinophils # (Manual) Nucleated RBC % Basophils # (Manual) PT INR APTT Heparin Anti-Xa Level ABG pH POC ABG pO2 ABG pO2 ABG HCO3 ABG O2 Saturation ABG Base Excess POC ABG pCO2 ABG Hemoglobin ABG Oxyhemoglobin ABG Chloride ABG Glucose Oxyhemoglobin Sodium Potassium Chloride Carbon Dioxide BUN Creatinine Glucose POC Glucose 143 H 142 H 128 H Lactic Acid Calcium Phosphorus Magnesium AST ALT Lactate Dehydrogenase Total Bilirubin Direct Bilirubin CK-MB (CK-2) C-Reactive Protein NT-Pro-B Natriuret Pep Total Protein Albumin Arterial Blood Glucose Urine WBC (Auto) Urine Creatinine 01/27/20 01/28/20 01/28/20 23:55 04:37 05:55 WBC RBC Hgb 9.4 L Hct 29.9 L MCHC RDW MCV MCH Lymph % (Auto) Edwards % (Auto) Edwards # Eos # Lymph # (Auto) Edwards # (Auto) Eos # (Auto) Seg Neutrophils % Seg Neuts % (Manual) Baso # (Auto) Lymphocytes % (Manual) Monocytes % (Manual) Eosinophils % (Manual) Basophils % (Manual) Seg Neutrophils # Seg Neutrophils # Man Lymphocytes # (Manual) Monocytes # (Manual) Eosinophils # (Manual) Nucleated RBC % Basophils # (Manual) PT INR APTT Heparin Anti-Xa Level ABG pH POC ABG pO2 ABG pO2 ABG HCO3 ABG O2 Saturation ABG Base Excess POC ABG pCO2 ABG Hemoglobin ABG Oxyhemoglobin ABG Chloride ABG Glucose Oxyhemoglobin Sodium Potassium Chloride Carbon Dioxide BUN Creatinine Glucose POC Glucose 166 H 169 H Lactic Acid Calcium Phosphorus Magnesium AST ALT Lactate Dehydrogenase Total Bilirubin Direct Bilirubin CK-MB (CK-2) C-Reactive Protein NT-Pro-B Natriuret Pep Total Protein Albumin Arterial Blood Glucose Urine WBC (Auto) Urine Creatinine 01/28/20 01/28/20 01/28/20 11:58 17:26 23:46 WBC RBC Hgb Hct MCHC RDW MCV MCH Lymph % (Auto) Edwards % (Auto) Edwards # Eos # Lymph # (Auto) Edwards # (Auto) Eos # (Auto) Seg Neutrophils % Seg Neuts % (Manual) Baso # (Auto) Lymphocytes % (Manual) Monocytes % (Manual) Eosinophils % (Manual) Basophils % (Manual) Seg Neutrophils # Seg Neutrophils # Man Lymphocytes # (Manual) Monocytes # (Manual) Eosinophils # (Manual) Nucleated RBC % Basophils # (Manual) PT INR APTT Heparin Anti-Xa Level ABG pH POC ABG pO2 ABG pO2 ABG HCO3 ABG O2 Saturation ABG Base Excess POC ABG pCO2 ABG Hemoglobin ABG Oxyhemoglobin ABG Chloride ABG Glucose Oxyhemoglobin Sodium Potassium Chloride Carbon Dioxide BUN Creatinine Glucose POC Glucose 130 H 126 H 150 H Lactic Acid Calcium Phosphorus Magnesium AST ALT Lactate Dehydrogenase Total Bilirubin Direct Bilirubin CK-MB (CK-2) C-Reactive Protein NT-Pro-B Natriuret Pep Total Protein Albumin Arterial Blood Glucose Urine WBC (Auto) Urine Creatinine 01/29/20 01/29/20 01/29/20 04:55 06:00 12:28 WBC RBC Hgb Hct MCHC RDW MCV MCH Lymph % (Auto) Edwards % (Auto) Edwards # Eos # Lymph # (Auto) Edwards # (Auto) Eos # (Auto) Seg Neutrophils % Seg Neuts % (Manual) Baso # (Auto) Lymphocytes % (Manual) Monocytes % (Manual) Eosinophils % (Manual) Basophils % (Manual) Seg Neutrophils # Seg Neutrophils # Man Lymphocytes # (Manual) Monocytes # (Manual) Eosinophils # (Manual) Nucleated RBC % Basophils # (Manual) PT INR APTT Heparin Anti-Xa Level ABG pH POC ABG pO2 ABG pO2 ABG HCO3 ABG O2 Saturation ABG Base Excess POC ABG pCO2 ABG Hemoglobin ABG Oxyhemoglobin ABG Chloride ABG Glucose Oxyhemoglobin Sodium Potassium Chloride Carbon Dioxide 34 H BUN Creatinine 0.6 L Glucose 152 H POC Glucose 157 H 156 H Lactic Acid Calcium Phosphorus Magnesium AST ALT Lactate Dehydrogenase Total Bilirubin Direct Bilirubin CK-MB (CK-2) C-Reactive Protein NT-Pro-B Natriuret Pep Total Protein Albumin Arterial Blood Glucose Urine WBC (Auto) Urine Creatinine 01/29/20 01/30/20 01/30/20 19:06 00:29 05:39 WBC RBC Hgb Hct MCHC RDW MCV MCH Lymph % (Auto) Edwards % (Auto) Edwards # Eos # Lymph # (Auto) Edwards # (Auto) Eos # (Auto) Seg Neutrophils % Seg Neuts % (Manual) Baso # (Auto) Lymphocytes % (Manual) Monocytes % (Manual) Eosinophils % (Manual) Basophils % (Manual) Seg Neutrophils # Seg Neutrophils # Man Lymphocytes # (Manual) Monocytes # (Manual) Eosinophils # (Manual) Nucleated RBC % Basophils # (Manual) PT INR APTT Heparin Anti-Xa Level ABG pH POC ABG pO2 ABG pO2 ABG HCO3 ABG O2 Saturation ABG Base Excess POC ABG pCO2 ABG Hemoglobin ABG Oxyhemoglobin ABG Chloride ABG Glucose Oxyhemoglobin Sodium Potassium Chloride Carbon Dioxide BUN Creatinine Glucose POC Glucose 152 H 132 H 159 H Lactic Acid Calcium Phosphorus Magnesium AST ALT Lactate Dehydrogenase Total Bilirubin Direct Bilirubin CK-MB (CK-2) C-Reactive Protein NT-Pro-B Natriuret Pep Total Protein Albumin Arterial Blood Glucose Urine WBC (Auto) Urine Creatinine 01/30/20 01/30/20 01/30/20 12:27 17:42 23:28 WBC RBC Hgb Hct MCHC RDW MCV MCH Lymph % (Auto) Edwards % (Auto) Edwards # Eos # Lymph # (Auto) Edwards # (Auto) Eos # (Auto) Seg Neutrophils % Seg Neuts % (Manual) Baso # (Auto) Lymphocytes % (Manual) Monocytes % (Manual) Eosinophils % (Manual) Basophils % (Manual) Seg Neutrophils # Seg Neutrophils # Man Lymphocytes # (Manual) Monocytes # (Manual) Eosinophils # (Manual) Nucleated RBC % Basophils # (Manual) PT INR APTT Heparin Anti-Xa Level ABG pH POC ABG pO2 ABG pO2 ABG HCO3 ABG O2 Saturation ABG Base Excess POC ABG pCO2 ABG Hemoglobin ABG Oxyhemoglobin ABG Chloride ABG Glucose Oxyhemoglobin Sodium Potassium Chloride Carbon Dioxide BUN Creatinine Glucose POC Glucose 151 H 144 H 164 H Lactic Acid Calcium Phosphorus Magnesium AST ALT Lactate Dehydrogenase Total Bilirubin Direct Bilirubin CK-MB (CK-2) C-Reactive Protein NT-Pro-B Natriuret Pep Total Protein Albumin Arterial Blood Glucose Urine WBC (Auto) Urine Creatinine 01/31/20 01/31/20 01/31/20 05:51 11:51 18:06 WBC RBC Hgb Hct MCHC RDW MCV MCH Lymph % (Auto) Edwards % (Auto) Edwards # Eos # Lymph # (Auto) Edwards # (Auto) Eos # (Auto) Seg Neutrophils % Seg Neuts % (Manual) Baso # (Auto) Lymphocytes % (Manual) Monocytes % (Manual) Eosinophils % (Manual) Basophils % (Manual) Seg Neutrophils # Seg Neutrophils # Man Lymphocytes # (Manual) Monocytes # (Manual) Eosinophils # (Manual) Nucleated RBC % Basophils # (Manual) PT INR APTT Heparin Anti-Xa Level ABG pH POC ABG pO2 ABG pO2 ABG HCO3 ABG O2 Saturation ABG Base Excess POC ABG pCO2 ABG Hemoglobin ABG Oxyhemoglobin ABG Chloride ABG Glucose Oxyhemoglobin Sodium Potassium Chloride Carbon Dioxide BUN Creatinine Glucose POC Glucose 131 H 167 H 210 H Lactic Acid Calcium Phosphorus Magnesium AST ALT Lactate Dehydrogenase Total Bilirubin Direct Bilirubin CK-MB (CK-2) C-Reactive Protein NT-Pro-B Natriuret Pep Total Protein Albumin Arterial Blood Glucose Urine WBC (Auto) Urine Creatinine 01/31/20 01/31/20 02/01/20 19:24 Unknown 00:34 WBC RBC Hgb Hct MCHC RDW MCV MCH Lymph % (Auto) Edwards % (Auto) Edwards # Eos # Lymph # (Auto) Edwards # (Auto) Eos # (Auto) Seg Neutrophils % Seg Neuts % (Manual) Baso # (Auto) Lymphocytes % (Manual) Monocytes % (Manual) Eosinophils % (Manual) Basophils % (Manual) Seg Neutrophils # Seg Neutrophils # Man Lymphocytes # (Manual) Monocytes # (Manual) Eosinophils # (Manual) Nucleated RBC % Basophils # (Manual) PT INR APTT Heparin Anti-Xa Level ABG pH POC ABG pO2 ABG pO2 ABG HCO3 ABG O2 Saturation ABG Base Excess POC ABG pCO2 ABG Hemoglobin ABG Oxyhemoglobin ABG Chloride ABG Glucose Oxyhemoglobin Sodium Potassium Chloride 95.3 L Carbon Dioxide 33 H BUN 36 H Creatinine Glucose 187 H POC Glucose 116 H Lactic Acid Calcium Phosphorus Magnesium AST ALT Lactate Dehydrogenase Total Bilirubin Direct Bilirubin CK-MB (CK-2) C-Reactive Protein NT-Pro-B Natriuret Pep Total Protein Albumin Arterial Blood Glucose Urine WBC (Auto) Urine Creatinine 57.4 H 02/01/20 02/01/20 02/01/20 05:24 10:40 12:29 WBC RBC Hgb Hct MCHC RDW MCV MCH Lymph % (Auto) Edwards % (Auto) Edwards # Eos # Lymph # (Auto) Edwards # (Auto) Eos # (Auto) Seg Neutrophils % Seg Neuts % (Manual) Baso # (Auto) Lymphocytes % (Manual) Monocytes % (Manual) Eosinophils % (Manual) Basophils % (Manual) Seg Neutrophils # Seg Neutrophils # Man Lymphocytes # (Manual) Monocytes # (Manual) Eosinophils # (Manual) Nucleated RBC % Basophils # (Manual) PT INR APTT Heparin Anti-Xa Level ABG pH POC ABG pO2 ABG pO2 ABG HCO3 ABG O2 Saturation ABG Base Excess POC ABG pCO2 ABG Hemoglobin ABG Oxyhemoglobin ABG Chloride ABG Glucose Oxyhemoglobin Sodium Potassium Chloride Carbon Dioxide BUN Creatinine Glucose POC Glucose 142 H 165 H 151 H Lactic Acid Calcium Phosphorus Magnesium AST ALT Lactate Dehydrogenase Total Bilirubin Direct Bilirubin CK-MB (CK-2) C-Reactive Protein NT-Pro-B Natriuret Pep Total Protein Albumin Arterial Blood Glucose Urine WBC (Auto) Urine Creatinine 02/01/20 02/01/20 02/02/20 17:16 23:23 06:36 WBC RBC Hgb Hct MCHC RDW MCV MCH Lymph % (Auto) Edwards % (Auto) Edwards # Eos # Lymph # (Auto) Edwards # (Auto) Eos # (Auto) Seg Neutrophils % Seg Neuts % (Manual) Baso # (Auto) Lymphocytes % (Manual) Monocytes % (Manual) Eosinophils % (Manual) Basophils % (Manual) Seg Neutrophils # Seg Neutrophils # Man Lymphocytes # (Manual) Monocytes # (Manual) Eosinophils # (Manual) Nucleated RBC % Basophils # (Manual) PT INR APTT Heparin Anti-Xa Level ABG pH POC ABG pO2 ABG pO2 ABG HCO3 ABG O2 Saturation ABG Base Excess POC ABG pCO2 ABG Hemoglobin ABG Oxyhemoglobin ABG Chloride ABG Glucose Oxyhemoglobin Sodium Potassium Chloride Carbon Dioxide BUN Creatinine Glucose POC Glucose 137 H 145 H 181 H Lactic Acid Calcium Phosphorus Magnesium AST ALT Lactate Dehydrogenase Total Bilirubin Direct Bilirubin CK-MB (CK-2) C-Reactive Protein NT-Pro-B Natriuret Pep Total Protein Albumin Arterial Blood Glucose Urine WBC (Auto) Urine Creatinine 02/02/20 02/02/20 02/02/20 10:01 12:05 17:54 WBC RBC Hgb Hct MCHC RDW MCV MCH Lymph % (Auto) Edwards % (Auto) Edwards # Eos # Lymph # (Auto) Edwards # (Auto) Eos # (Auto) Seg Neutrophils % Seg Neuts % (Manual) Baso # (Auto) Lymphocytes % (Manual) Monocytes % (Manual) Eosinophils % (Manual) Basophils % (Manual) Seg Neutrophils # Seg Neutrophils # Man Lymphocytes # (Manual) Monocytes # (Manual) Eosinophils # (Manual) Nucleated RBC % Basophils # (Manual) PT INR APTT Heparin Anti-Xa Level ABG pH POC ABG pO2 ABG pO2 ABG HCO3 ABG O2 Saturation ABG Base Excess POC ABG pCO2 ABG Hemoglobin ABG Oxyhemoglobin ABG Chloride ABG Glucose Oxyhemoglobin Sodium Potassium Chloride 95.3 L Carbon Dioxide BUN 44 H Creatinine Glucose 234 H POC Glucose 184 H 127 H Lactic Acid Calcium Phosphorus Magnesium AST 363 H ALT 457 H Lactate Dehydrogenase Total Bilirubin Direct Bilirubin CK-MB (CK-2) C-Reactive Protein NT-Pro-B Natriuret Pep Total Protein Albumin 3.0 L Arterial Blood Glucose Urine WBC (Auto) Urine Creatinine 02/02/20 02/03/20 02/03/20 23:47 05:32 07:04 WBC 13.0 H RBC Hgb 9.5 L Hct 30.8 L MCHC 31 L RDW 19.6 H MCV 81 L MCH 25 L Lymph % (Auto) Edwards % (Auto) 9.4 H Edwards # Eos # Lymph # (Auto) Edwards # (Auto) 1.2 H Eos # (Auto) Seg Neutrophils % 72.3 H Seg Neuts % (Manual) Baso # (Auto) Lymphocytes % (Manual) Monocytes % (Manual) Eosinophils % (Manual) Basophils % (Manual) Seg Neutrophils # 9.4 H Seg Neutrophils # Man Lymphocytes # (Manual) Monocytes # (Manual) Eosinophils # (Manual) Nucleated RBC % Basophils # (Manual) PT INR APTT Heparin Anti-Xa Level ABG pH POC ABG pO2 ABG pO2 ABG HCO3 ABG O2 Saturation ABG Base Excess POC ABG pCO2 ABG Hemoglobin ABG Oxyhemoglobin ABG Chloride ABG Glucose Oxyhemoglobin Sodium Potassium Chloride Carbon Dioxide BUN Creatinine Glucose POC Glucose 124 H 129 H Lactic Acid Calcium Phosphorus Magnesium AST ALT Lactate Dehydrogenase Total Bilirubin Direct Bilirubin CK-MB (CK-2) C-Reactive Protein NT-Pro-B Natriuret Pep Total Protein Albumin Arterial Blood Glucose Urine WBC (Auto) Urine Creatinine 02/03/20 02/03/20 02/03/20 07:04 11:32 12:49 WBC RBC Hgb Hct MCHC RDW MCV MCH Lymph % (Auto) Edwards % (Auto) Edwards # Eos # Lymph # (Auto) Edwards # (Auto) Eos # (Auto) Seg Neutrophils % Seg Neuts % (Manual) Baso # (Auto) Lymphocytes % (Manual) Monocytes % (Manual) Eosinophils % (Manual) Basophils % (Manual) Seg Neutrophils # Seg Neutrophils # Man Lymphocytes # (Manual) Monocytes # (Manual) Eosinophils # (Manual) Nucleated RBC % Basophils # (Manual) PT INR APTT Heparin Anti-Xa Level ABG pH POC ABG pO2 ABG pO2 ABG HCO3 ABG O2 Saturation ABG Base Excess POC ABG pCO2 ABG Hemoglobin ABG Oxyhemoglobin ABG Chloride ABG Glucose Oxyhemoglobin Sodium Potassium Chloride 97.9 L Carbon Dioxide 33 H BUN 39 H Creatinine Glucose 119 H POC Glucose 138 H Lactic Acid Calcium Phosphorus Magnesium 2.60 H AST ALT Lactate Dehydrogenase Total Bilirubin Direct Bilirubin CK-MB (CK-2) C-Reactive Protein NT-Pro-B Natriuret Pep Total Protein Albumin Arterial Blood Glucose Urine WBC (Auto) Urine Creatinine 02/03/20 02/04/20 02/04/20 18:28 16:24 16:24 WBC RBC 3.38 L Hgb 8.6 L Hct 26.9 L MCHC RDW 19.5 H MCV 80 L MCH 26 L Lymph % (Auto) Edwards % (Auto) Edwards # Eos # Lymph # (Auto) Edwards # (Auto) Eos # (Auto) Seg Neutrophils % Seg Neuts % (Manual) Baso # (Auto) Lymphocytes % (Manual) Monocytes % (Manual) Eosinophils % (Manual) Basophils % (Manual) Seg Neutrophils # Seg Neutrophils # Man Lymphocytes # (Manual) Monocytes # (Manual) Eosinophils # (Manual) Nucleated RBC % Basophils # (Manual) PT INR APTT Heparin Anti-Xa Level ABG pH POC ABG pO2 ABG pO2 ABG HCO3 ABG O2 Saturation ABG Base Excess POC ABG pCO2 ABG Hemoglobin ABG Oxyhemoglobin ABG Chloride ABG Glucose Oxyhemoglobin Sodium Potassium 3.4 L Chloride Carbon Dioxide 31 H BUN 37 H Creatinine Glucose 70 L POC Glucose 118 H Lactic Acid Calcium Phosphorus Magnesium AST 169 H ALT 394 H Lactate Dehydrogenase Total Bilirubin 1.50 H Direct Bilirubin CK-MB (CK-2) C-Reactive Protein NT-Pro-B Natriuret Pep Total Protein Albumin 2.9 L Arterial Blood Glucose Urine WBC (Auto) Urine Creatinine 02/05/20 02/05/20 02/05/20 00:41 06:37 17:14 WBC RBC Hgb Hct MCHC RDW MCV MCH Lymph % (Auto) Edwards % (Auto) Edwards # Eos # Lymph # (Auto) Edwards # (Auto) Eos # (Auto) Seg Neutrophils % Seg Neuts % (Manual) Baso # (Auto) Lymphocytes % (Manual) Monocytes % (Manual) Eosinophils % (Manual) Basophils % (Manual) Seg Neutrophils # Seg Neutrophils # Man Lymphocytes # (Manual) Monocytes # (Manual) Eosinophils # (Manual) Nucleated RBC % Basophils # (Manual) PT INR APTT Heparin Anti-Xa Level ABG pH POC ABG pO2 ABG pO2 ABG HCO3 ABG O2 Saturation ABG Base Excess POC ABG pCO2 ABG Hemoglobin ABG Oxyhemoglobin ABG Chloride ABG Glucose Oxyhemoglobin Sodium Potassium 3.1 L Chloride Carbon Dioxide 35 H BUN 32 H Creatinine 0.7 L Glucose POC Glucose 69 L 127 H Lactic Acid Calcium Phosphorus Magnesium AST 134 H ALT 352 H Lactate Dehydrogenase Total Bilirubin 1.60 H Direct Bilirubin CK-MB (CK-2) C-Reactive Protein NT-Pro-B Natriuret Pep Total Protein Albumin 2.9 L Arterial Blood Glucose Urine WBC (Auto) Urine Creatinine 02/05/20 02/06/20 02/06/20 23:43 05:32 08:01 WBC RBC Hgb Hct MCHC RDW MCV MCH Lymph % (Auto) Edwards % (Auto) Edwards # Eos # Lymph # (Auto) Edwards # (Auto) Eos # (Auto) Seg Neutrophils % Seg Neuts % (Manual) Baso # (Auto) Lymphocytes % (Manual) Monocytes % (Manual) Eosinophils % (Manual) Basophils % (Manual) Seg Neutrophils # Seg Neutrophils # Man Lymphocytes # (Manual) Monocytes # (Manual) Eosinophils # (Manual) Nucleated RBC % Basophils # (Manual) PT INR APTT Heparin Anti-Xa Level ABG pH POC ABG pO2 ABG pO2 ABG HCO3 ABG O2 Saturation ABG Base Excess POC ABG pCO2 ABG Hemoglobin ABG Oxyhemoglobin ABG Chloride ABG Glucose Oxyhemoglobin Sodium Potassium Chloride Carbon Dioxide BUN 40 H Creatinine Glucose 132 H POC Glucose 129 H 131 H Lactic Acid Calcium Phosphorus Magnesium AST ALT Lactate Dehydrogenase Total Bilirubin Direct Bilirubin CK-MB (CK-2) C-Reactive Protein NT-Pro-B Natriuret Pep Total Protein Albumin Arterial Blood Glucose Urine WBC (Auto) Urine Creatinine 02/06/20 02/06/20 02/06/20 11:51 16:28 17:32 WBC RBC Hgb Hct MCHC RDW MCV MCH Lymph % (Auto) Edwards % (Auto) Edwards # Eos # Lymph # (Auto) Edwards # (Auto) Eos # (Auto) Seg Neutrophils % Seg Neuts % (Manual) Baso # (Auto) Lymphocytes % (Manual) Monocytes % (Manual) Eosinophils % (Manual) Basophils % (Manual) Seg Neutrophils # Seg Neutrophils # Man Lymphocytes # (Manual) Monocytes # (Manual) Eosinophils # (Manual) Nucleated RBC % Basophils # (Manual) PT INR APTT Heparin Anti-Xa Level ABG pH POC ABG pO2 ABG pO2 ABG HCO3 ABG O2 Saturation ABG Base Excess POC ABG pCO2 ABG Hemoglobin ABG Oxyhemoglobin ABG Chloride ABG Glucose Oxyhemoglobin Sodium Potassium Chloride Carbon Dioxide BUN Creatinine Glucose POC Glucose 167 H 129 H Lactic Acid Calcium Phosphorus Magnesium AST 824 H ALT 948 H Lactate Dehydrogenase Total Bilirubin 1.70 H Direct Bilirubin 1.2 H CK-MB (CK-2) C-Reactive Protein NT-Pro-B Natriuret Pep Total Protein Albumin 2.9 L Arterial Blood Glucose Urine WBC (Auto) Urine Creatinine 02/07/20 02/07/20 02/07/20 00:11 04:57 04:57 WBC RBC Hgb 9.2 L Hct 29.7 L MCHC 31 L RDW 20.2 H MCV 80 L MCH 25 L Lymph % (Auto) Edwards % (Auto) Edwards # Eos # Lymph # (Auto) Edwards # (Auto) Eos # (Auto) Seg Neutrophils % Seg Neuts % (Manual) Baso # (Auto) Lymphocytes % (Manual) Monocytes % (Manual) Eosinophils % (Manual) Basophils % (Manual) Seg Neutrophils # Seg Neutrophils # Man Lymphocytes # (Manual) Monocytes # (Manual) Eosinophils # (Manual) Nucleated RBC % Basophils # (Manual) PT INR APTT Heparin Anti-Xa Level ABG pH POC ABG pO2 ABG pO2 ABG HCO3 ABG O2 Saturation ABG Base Excess POC ABG pCO2 ABG Hemoglobin ABG Oxyhemoglobin ABG Chloride ABG Glucose Oxyhemoglobin Sodium Potassium 3.4 L D Chloride Carbon Dioxide 32 H BUN 39 H Creatinine Glucose 106 H POC Glucose 121 H Lactic Acid Calcium Phosphorus Magnesium AST ALT Lactate Dehydrogenase Total Bilirubin Direct Bilirubin CK-MB (CK-2) C-Reactive Protein NT-Pro-B Natriuret Pep Total Protein Albumin Arterial Blood Glucose Urine WBC (Auto) Urine Creatinine 02/07/20 02/07/20 02/07/20 15:03 15:03 17:11 WBC RBC Hgb Hct MCHC RDW MCV MCH Lymph % (Auto) Edwards % (Auto) Edwards # Eos # Lymph # (Auto) Edwards # (Auto) Eos # (Auto) Seg Neutrophils % Seg Neuts % (Manual) Baso # (Auto) Lymphocytes % (Manual) Monocytes % (Manual) Eosinophils % (Manual) Basophils % (Manual) Seg Neutrophils # Seg Neutrophils # Man Lymphocytes # (Manual) Monocytes # (Manual) Eosinophils # (Manual) Nucleated RBC % Basophils # (Manual) PT 27.0 H INR 2.46 H APTT Heparin Anti-Xa Level ABG pH POC ABG pO2 ABG pO2 ABG HCO3 ABG O2 Saturation ABG Base Excess POC ABG pCO2 ABG Hemoglobin ABG Oxyhemoglobin ABG Chloride ABG Glucose Oxyhemoglobin Sodium Potassium Chloride Carbon Dioxide BUN Creatinine Glucose POC Glucose 109 H Lactic Acid Calcium Phosphorus Magnesium AST 424 H ALT 796 H Lactate Dehydrogenase Total Bilirubin 1.60 H Direct Bilirubin 1.2 H CK-MB (CK-2) C-Reactive Protein NT-Pro-B Natriuret Pep Total Protein Albumin 2.9 L Arterial Blood Glucose Urine WBC (Auto) Urine Creatinine 02/08/20 02/08/20 02/08/20 12:14 17:44 19:00 WBC RBC Hgb Hct MCHC RDW MCV MCH Lymph % (Auto) Edwards % (Auto) Edwards # Eos # Lymph # (Auto) Edwards # (Auto) Eos # (Auto) Seg Neutrophils % Seg Neuts % (Manual) Baso # (Auto) Lymphocytes % (Manual) Monocytes % (Manual) Eosinophils % (Manual) Basophils % (Manual) Seg Neutrophils # Seg Neutrophils # Man Lymphocytes # (Manual) Monocytes # (Manual) Eosinophils # (Manual) Nucleated RBC % Basophils # (Manual) PT INR APTT Heparin Anti-Xa Level ABG pH POC ABG pO2 ABG pO2 ABG HCO3 ABG O2 Saturation ABG Base Excess POC ABG pCO2 ABG Hemoglobin ABG Oxyhemoglobin ABG Chloride ABG Glucose Oxyhemoglobin Sodium Potassium Chloride Carbon Dioxide BUN Creatinine Glucose POC Glucose 111 H 107 H Lactic Acid Calcium Phosphorus Magnesium AST 309 H ALT 650 H Lactate Dehydrogenase Total Bilirubin 1.30 H Direct Bilirubin 0.9 H CK-MB (CK-2) C-Reactive Protein NT-Pro-B Natriuret Pep Total Protein 6.2 L Albumin 2.7 L Arterial Blood Glucose Urine WBC (Auto) Urine Creatinine 02/09/20 02/09/20 02/09/20 05:41 12:28 18:07 WBC RBC Hgb Hct MCHC RDW MCV MCH Lymph % (Auto) Edwards % (Auto) Edwards # Eos # Lymph # (Auto) Edwards # (Auto) Eos # (Auto) Seg Neutrophils % Seg Neuts % (Manual) Baso # (Auto) Lymphocytes % (Manual) Monocytes % (Manual) Eosinophils % (Manual) Basophils % (Manual) Seg Neutrophils # Seg Neutrophils # Man Lymphocytes # (Manual) Monocytes # (Manual) Eosinophils # (Manual) Nucleated RBC % Basophils # (Manual) PT INR APTT Heparin Anti-Xa Level ABG pH POC ABG pO2 ABG pO2 ABG HCO3 ABG O2 Saturation ABG Base Excess POC ABG pCO2 ABG Hemoglobin ABG Oxyhemoglobin ABG Chloride ABG Glucose Oxyhemoglobin Sodium Potassium Chloride Carbon Dioxide BUN Creatinine Glucose POC Glucose 113 H 140 H 143 H Lactic Acid Calcium Phosphorus Magnesium AST ALT Lactate Dehydrogenase Total Bilirubin Direct Bilirubin CK-MB (CK-2) C-Reactive Protein NT-Pro-B Natriuret Pep Total Protein Albumin Arterial Blood Glucose Urine WBC (Auto) Urine Creatinine 02/09/20 02/09/20 02/10/20 21:40 23:45 06:00 WBC RBC Hgb Hct MCHC RDW MCV MCH Lymph % (Auto) Edwards % (Auto) Edwards # Eos # Lymph # (Auto) Edwards # (Auto) Eos # (Auto) Seg Neutrophils % Seg Neuts % (Manual) Baso # (Auto) Lymphocytes % (Manual) Monocytes % (Manual) Eosinophils % (Manual) Basophils % (Manual) Seg Neutrophils # Seg Neutrophils # Man Lymphocytes # (Manual) Monocytes # (Manual) Eosinophils # (Manual) Nucleated RBC % Basophils # (Manual) PT INR APTT Heparin Anti-Xa Level ABG pH POC ABG pO2 ABG pO2 59.8 L ABG HCO3 33.3 H ABG O2 Saturation 88.9 L ABG Base Excess 7.4 H POC ABG pCO2 ABG Hemoglobin 10.4 L ABG Oxyhemoglobin ABG Chloride ABG Glucose Oxyhemoglobin 86.3 L Sodium Potassium Chloride Carbon Dioxide BUN Creatinine Glucose POC Glucose 127 H 114 H Lactic Acid Calcium Phosphorus Magnesium AST ALT Lactate Dehydrogenase Total Bilirubin Direct Bilirubin CK-MB (CK-2) C-Reactive Protein NT-Pro-B Natriuret Pep Total Protein Albumin Arterial Blood Glucose Urine WBC (Auto) Urine Creatinine 02/10/20 02/10/20 02/10/20 07:40 07:40 13:38 WBC 11.5 H RBC Hgb 10.6 L Hct 34.7 L MCHC 31 L RDW 19.8 H MCV 79 L MCH 24 L Lymph % (Auto) Edwards % (Auto) 9.2 H Edwards # Eos # Lymph # (Auto) Edwards # (Auto) 1.1 H Eos # (Auto) Seg Neutrophils % Seg Neuts % (Manual) Baso # (Auto) Lymphocytes % (Manual) Monocytes % (Manual) Eosinophils % (Manual) Basophils % (Manual) Seg Neutrophils # Seg Neutrophils # Man Lymphocytes # (Manual) Monocytes # (Manual) Eosinophils # (Manual) Nucleated RBC % Basophils # (Manual) PT INR APTT Heparin Anti-Xa Level ABG pH POC ABG pO2 ABG pO2 ABG HCO3 ABG O2 Saturation ABG Base Excess POC ABG pCO2 ABG Hemoglobin ABG Oxyhemoglobin ABG Chloride ABG Glucose Oxyhemoglobin Sodium 151 H Potassium Chloride 107.2 H Carbon Dioxide 36 H BUN 25 H Creatinine 0.7 L Glucose 114 H POC Glucose 116 H Lactic Acid Calcium Phosphorus Magnesium 2.40 H AST ALT Lactate Dehydrogenase Total Bilirubin Direct Bilirubin CK-MB (CK-2) C-Reactive Protein NT-Pro-B Natriuret Pep Total Protein Albumin Arterial Blood Glucose Urine WBC (Auto) Urine Creatinine 02/10/20 02/11/20 02/11/20 17:44 05:47 12:21 WBC RBC Hgb Hct MCHC RDW MCV MCH Lymph % (Auto) Edwards % (Auto) Edwards # Eos # Lymph # (Auto) Edwards # (Auto) Eos # (Auto) Seg Neutrophils % Seg Neuts % (Manual) Baso # (Auto) Lymphocytes % (Manual) Monocytes % (Manual) Eosinophils % (Manual) Basophils % (Manual) Seg Neutrophils # Seg Neutrophils # Man Lymphocytes # (Manual) Monocytes # (Manual) Eosinophils # (Manual) Nucleated RBC % Basophils # (Manual) PT INR APTT Heparin Anti-Xa Level ABG pH POC ABG pO2 ABG pO2 ABG HCO3 ABG O2 Saturation ABG Base Excess POC ABG pCO2 ABG Hemoglobin ABG Oxyhemoglobin ABG Chloride ABG Glucose Oxyhemoglobin Sodium Potassium Chloride Carbon Dioxide BUN Creatinine Glucose POC Glucose 139 H 173 H 143 H Lactic Acid Calcium Phosphorus Magnesium AST ALT Lactate Dehydrogenase Total Bilirubin Direct Bilirubin CK-MB (CK-2) C-Reactive Protein NT-Pro-B Natriuret Pep Total Protein Albumin Arterial Blood Glucose Urine WBC (Auto) Urine Creatinine 02/11/20 02/11/20 02/12/20 13:43 14:11 00:15 WBC RBC Hgb Hct MCHC RDW MCV MCH Lymph % (Auto) Edwards % (Auto) Edwards # Eos # Lymph # (Auto) Edwards # (Auto) Eos # (Auto) Seg Neutrophils % Seg Neuts % (Manual) Baso # (Auto) Lymphocytes % (Manual) Monocytes % (Manual) Eosinophils % (Manual) Basophils % (Manual) Seg Neutrophils # Seg Neutrophils # Man Lymphocytes # (Manual) Monocytes # (Manual) Eosinophils # (Manual) Nucleated RBC % Basophils # (Manual) PT INR APTT Heparin Anti-Xa Level ABG pH 7.502 H POC ABG pO2 77.7 L ABG pO2 ABG HCO3 ABG O2 Saturation ABG Base Excess POC ABG pCO2 ABG Hemoglobin 11.1 L ABG Oxyhemoglobin ABG Chloride 108.0 H ABG Glucose 151 H Oxyhemoglobin Sodium Potassium Chloride Carbon Dioxide BUN Creatinine Glucose POC Glucose 130 H 125 H Lactic Acid Calcium Phosphorus Magnesium AST ALT Lactate Dehydrogenase Total Bilirubin Direct Bilirubin CK-MB (CK-2) C-Reactive Protein NT-Pro-B Natriuret Pep Total Protein Albumin Arterial Blood Glucose 151 H Urine WBC (Auto) Urine Creatinine 02/12/20 02/12/20 02/12/20 04:56 04:56 17:42 WBC RBC Hgb 9.9 L Hct 31.8 L MCHC 31 L RDW 19.4 H MCV 79 L MCH 25 L Lymph % (Auto) Edwards % (Auto) 10.3 H Edwards # Eos # Lymph # (Auto) Edwards # (Auto) 1.0 H Eos # (Auto) Seg Neutrophils % Seg Neuts % (Manual) Baso # (Auto) Lymphocytes % (Manual) Monocytes % (Manual) Eosinophils % (Manual) Basophils % (Manual) Seg Neutrophils # Seg Neutrophils # Man Lymphocytes # (Manual) Monocytes # (Manual) Eosinophils # (Manual) Nucleated RBC % Basophils # (Manual) PT INR APTT Heparin Anti-Xa Level ABG pH POC ABG pO2 ABG pO2 ABG HCO3 ABG O2 Saturation ABG Base Excess POC ABG pCO2 ABG Hemoglobin ABG Oxyhemoglobin ABG Chloride ABG Glucose Oxyhemoglobin Sodium 149 H Potassium Chloride 108.6 H Carbon Dioxide BUN 28 H Creatinine 0.7 L Glucose 108 H POC Glucose 113 H Lactic Acid Calcium Phosphorus Magnesium AST ALT Lactate Dehydrogenase Total Bilirubin Direct Bilirubin CK-MB (CK-2) C-Reactive Protein NT-Pro-B Natriuret Pep Total Protein Albumin Arterial Blood Glucose Urine WBC (Auto) Urine Creatinine 02/13/20 02/13/20 02/13/20 00:39 05:36 12:25 WBC RBC Hgb Hct MCHC RDW MCV MCH Lymph % (Auto) Edwards % (Auto) Edwards # Eos # Lymph # (Auto) Edwards # (Auto) Eos # (Auto) Seg Neutrophils % Seg Neuts % (Manual) Baso # (Auto) Lymphocytes % (Manual) Monocytes % (Manual) Eosinophils % (Manual) Basophils % (Manual) Seg Neutrophils # Seg Neutrophils # Man Lymphocytes # (Manual) Monocytes # (Manual) Eosinophils # (Manual) Nucleated RBC % Basophils # (Manual) PT INR APTT Heparin Anti-Xa Level ABG pH POC ABG pO2 ABG pO2 ABG HCO3 ABG O2 Saturation ABG Base Excess POC ABG pCO2 ABG Hemoglobin ABG Oxyhemoglobin ABG Chloride ABG Glucose Oxyhemoglobin Sodium Potassium Chloride Carbon Dioxide BUN Creatinine Glucose POC Glucose 129 H 126 H 129 H Lactic Acid Calcium Phosphorus Magnesium AST ALT Lactate Dehydrogenase Total Bilirubin Direct Bilirubin CK-MB (CK-2) C-Reactive Protein NT-Pro-B Natriuret Pep Total Protein Albumin Arterial Blood Glucose Urine WBC (Auto) Urine Creatinine 02/13/20 02/14/20 02/14/20 17:59 00:15 05:41 WBC RBC Hgb Hct MCHC RDW MCV MCH Lymph % (Auto) Edwards % (Auto) Edwards # Eos # Lymph # (Auto) Edwards # (Auto) Eos # (Auto) Seg Neutrophils % Seg Neuts % (Manual) Baso # (Auto) Lymphocytes % (Manual) Monocytes % (Manual) Eosinophils % (Manual) Basophils % (Manual) Seg Neutrophils # Seg Neutrophils # Man Lymphocytes # (Manual) Monocytes # (Manual) Eosinophils # (Manual) Nucleated RBC % Basophils # (Manual) PT INR APTT Heparin Anti-Xa Level ABG pH POC ABG pO2 ABG pO2 ABG HCO3 ABG O2 Saturation ABG Base Excess POC ABG pCO2 ABG Hemoglobin ABG Oxyhemoglobin ABG Chloride ABG Glucose Oxyhemoglobin Sodium Potassium Chloride Carbon Dioxide BUN Creatinine Glucose POC Glucose 153 H 130 H 130 H Lactic Acid Calcium Phosphorus Magnesium AST ALT Lactate Dehydrogenase Total Bilirubin Direct Bilirubin CK-MB (CK-2) C-Reactive Protein NT-Pro-B Natriuret Pep Total Protein Albumin Arterial Blood Glucose Urine WBC (Auto) Urine Creatinine 02/14/20 02/15/20 02/15/20 11:32 00:12 05:27 WBC RBC Hgb Hct MCHC RDW MCV MCH Lymph % (Auto) Edwards % (Auto) Edwards # Eos # Lymph # (Auto) Edwards # (Auto) Eos # (Auto) Seg Neutrophils % Seg Neuts % (Manual) Baso # (Auto) Lymphocytes % (Manual) Monocytes % (Manual) Eosinophils % (Manual) Basophils % (Manual) Seg Neutrophils # Seg Neutrophils # Man Lymphocytes # (Manual) Monocytes # (Manual) Eosinophils # (Manual) Nucleated RBC % Basophils # (Manual) PT INR APTT Heparin Anti-Xa Level ABG pH POC ABG pO2 ABG pO2 ABG HCO3 ABG O2 Saturation ABG Base Excess POC ABG pCO2 ABG Hemoglobin ABG Oxyhemoglobin ABG Chloride ABG Glucose Oxyhemoglobin Sodium Potassium Chloride Carbon Dioxide BUN Creatinine Glucose POC Glucose 157 H 124 H 111 H Lactic Acid Calcium Phosphorus Magnesium AST ALT Lactate Dehydrogenase Total Bilirubin Direct Bilirubin CK-MB (CK-2) C-Reactive Protein NT-Pro-B Natriuret Pep Total Protein Albumin Arterial Blood Glucose Urine WBC (Auto) Urine Creatinine 02/15/20 02/15/20 02/15/20 06:59 06:59 11:14 WBC RBC Hgb 10.4 L Hct 33.7 L MCHC 31 L RDW 19.4 H MCV 80 L MCH 24 L Lymph % (Auto) Edwards % (Auto) Edwards # Eos # Lymph # (Auto) Edwards # (Auto) Eos # (Auto) Seg Neutrophils % Seg Neuts % (Manual) Baso # (Auto) Lymphocytes % (Manual) Monocytes % (Manual) Eosinophils % (Manual) Basophils % (Manual) 2.0 H Seg Neutrophils # Seg Neutrophils # Man Lymphocytes # (Manual) Monocytes # (Manual) Eosinophils # (Manual) Nucleated RBC % 1.0 H Basophils # (Manual) 0.2 H PT INR APTT Heparin Anti-Xa Level ABG pH POC ABG pO2 ABG pO2 ABG HCO3 ABG O2 Saturation ABG Base Excess POC ABG pCO2 ABG Hemoglobin ABG Oxyhemoglobin ABG Chloride ABG Glucose Oxyhemoglobin Sodium 149 H Potassium Chloride 108.4 H Carbon Dioxide 31 H BUN 40 H Creatinine 0.7 L Glucose 150 H POC Glucose 128 H Lactic Acid Calcium Phosphorus Magnesium AST ALT Lactate Dehydrogenase Total Bilirubin Direct Bilirubin CK-MB (CK-2) C-Reactive Protein NT-Pro-B Natriuret Pep Total Protein Albumin Arterial Blood Glucose Urine WBC (Auto) Urine Creatinine 02/15/20 02/15/20 02/16/20 17:46 23:50 05:03 WBC RBC Hgb Hct MCHC RDW MCV MCH Lymph % (Auto) Edwards % (Auto) Edwards # Eos # Lymph # (Auto) Edwards # (Auto) Eos # (Auto) Seg Neutrophils % Seg Neuts % (Manual) Baso # (Auto) Lymphocytes % (Manual) Monocytes % (Manual) Eosinophils % (Manual) Basophils % (Manual) Seg Neutrophils # Seg Neutrophils # Man Lymphocytes # (Manual) Monocytes # (Manual) Eosinophils # (Manual) Nucleated RBC % Basophils # (Manual) PT INR APTT Heparin Anti-Xa Level ABG pH POC ABG pO2 ABG pO2 ABG HCO3 ABG O2 Saturation ABG Base Excess POC ABG pCO2 ABG Hemoglobin ABG Oxyhemoglobin ABG Chloride ABG Glucose Oxyhemoglobin Sodium Potassium Chloride Carbon Dioxide BUN Creatinine Glucose POC Glucose 154 H 135 H 148 H Lactic Acid Calcium Phosphorus Magnesium AST ALT Lactate Dehydrogenase Total Bilirubin Direct Bilirubin CK-MB (CK-2) C-Reactive Protein NT-Pro-B Natriuret Pep Total Protein Albumin Arterial Blood Glucose Urine WBC (Auto) Urine Creatinine 02/16/20 02/16/20 02/16/20 07:53 11:28 17:52 WBC RBC Hgb Hct MCHC RDW MCV MCH Lymph % (Auto) Edwards % (Auto) Edwards # Eos # Lymph # (Auto) Edwards # (Auto) Eos # (Auto) Seg Neutrophils % Seg Neuts % (Manual) Baso # (Auto) Lymphocytes % (Manual) Monocytes % (Manual) Eosinophils % (Manual) Basophils % (Manual) Seg Neutrophils # Seg Neutrophils # Man Lymphocytes # (Manual) Monocytes # (Manual) Eosinophils # (Manual) Nucleated RBC % Basophils # (Manual) PT INR APTT Heparin Anti-Xa Level ABG pH POC ABG pO2 ABG pO2 ABG HCO3 ABG O2 Saturation ABG Base Excess POC ABG pCO2 ABG Hemoglobin ABG Oxyhemoglobin ABG Chloride ABG Glucose Oxyhemoglobin Sodium Potassium Chloride 107.9 H Carbon Dioxide BUN 38 H Creatinine 0.6 L Glucose 151 H POC Glucose 123 H 152 H Lactic Acid Calcium Phosphorus Magnesium AST ALT Lactate Dehydrogenase Total Bilirubin Direct Bilirubin CK-MB (CK-2) C-Reactive Protein NT-Pro-B Natriuret Pep Total Protein Albumin Arterial Blood Glucose Urine WBC (Auto) Urine Creatinine 02/16/20 02/17/20 02/17/20 23:49 06:24 11:36 WBC RBC Hgb Hct MCHC RDW MCV MCH Lymph % (Auto) Edwards % (Auto) Edwards # Eos # Lymph # (Auto) Edwards # (Auto) Eos # (Auto) Seg Neutrophils % Seg Neuts % (Manual) Baso # (Auto) Lymphocytes % (Manual) Monocytes % (Manual) Eosinophils % (Manual) Basophils % (Manual) Seg Neutrophils # Seg Neutrophils # Man Lymphocytes # (Manual) Monocytes # (Manual) Eosinophils # (Manual) Nucleated RBC % Basophils # (Manual) PT INR APTT Heparin Anti-Xa Level ABG pH POC ABG pO2 ABG pO2 ABG HCO3 ABG O2 Saturation ABG Base Excess POC ABG pCO2 ABG Hemoglobin ABG Oxyhemoglobin ABG Chloride ABG Glucose Oxyhemoglobin Sodium Potassium Chloride Carbon Dioxide BUN Creatinine Glucose POC Glucose 156 H 193 H 162 H Lactic Acid Calcium Phosphorus Magnesium AST ALT Lactate Dehydrogenase Total Bilirubin Direct Bilirubin CK-MB (CK-2) C-Reactive Protein NT-Pro-B Natriuret Pep Total Protein Albumin Arterial Blood Glucose Urine WBC (Auto) Urine Creatinine 02/17/20 02/17/20 02/18/20 17:55 23:28 05:11 WBC RBC Hgb Hct MCHC RDW MCV MCH Lymph % (Auto) Edwards % (Auto) Edwards # Eos # Lymph # (Auto) Edwards # (Auto) Eos # (Auto) Seg Neutrophils % Seg Neuts % (Manual) Baso # (Auto) Lymphocytes % (Manual) Monocytes % (Manual) Eosinophils % (Manual) Basophils % (Manual) Seg Neutrophils # Seg Neutrophils # Man Lymphocytes # (Manual) Monocytes # (Manual) Eosinophils # (Manual) Nucleated RBC % Basophils # (Manual) PT INR APTT Heparin Anti-Xa Level ABG pH POC ABG pO2 ABG pO2 ABG HCO3 ABG O2 Saturation ABG Base Excess POC ABG pCO2 ABG Hemoglobin ABG Oxyhemoglobin ABG Chloride ABG Glucose Oxyhemoglobin Sodium Potassium Chloride Carbon Dioxide BUN Creatinine Glucose POC Glucose 165 H 146 H 122 H Lactic Acid Calcium Phosphorus Magnesium AST ALT Lactate Dehydrogenase Total Bilirubin Direct Bilirubin CK-MB (CK-2) C-Reactive Protein NT-Pro-B Natriuret Pep Total Protein Albumin Arterial Blood Glucose Urine WBC (Auto) Urine Creatinine 02/18/20 02/18/20 02/19/20 12:24 17:29 00:01 WBC RBC Hgb Hct MCHC RDW MCV MCH Lymph % (Auto) Edwards % (Auto) Edwards # Eos # Lymph # (Auto) Edwards # (Auto) Eos # (Auto) Seg Neutrophils % Seg Neuts % (Manual) Baso # (Auto) Lymphocytes % (Manual) Monocytes % (Manual) Eosinophils % (Manual) Basophils % (Manual) Seg Neutrophils # Seg Neutrophils # Man Lymphocytes # (Manual) Monocytes # (Manual) Eosinophils # (Manual) Nucleated RBC % Basophils # (Manual) PT INR APTT Heparin Anti-Xa Level ABG pH POC ABG pO2 ABG pO2 ABG HCO3 ABG O2 Saturation ABG Base Excess POC ABG pCO2 ABG Hemoglobin ABG Oxyhemoglobin ABG Chloride ABG Glucose Oxyhemoglobin Sodium Potassium Chloride Carbon Dioxide BUN Creatinine Glucose POC Glucose 162 H 136 H 145 H Lactic Acid Calcium Phosphorus Magnesium AST ALT Lactate Dehydrogenase Total Bilirubin Direct Bilirubin CK-MB (CK-2) C-Reactive Protein NT-Pro-B Natriuret Pep Total Protein Albumin Arterial Blood Glucose Urine WBC (Auto) Urine Creatinine 02/19/20 02/19/20 02/19/20 05:53 11:44 17:32 WBC RBC Hgb Hct MCHC RDW MCV MCH Lymph % (Auto) Edwards % (Auto) Edwards # Eos # Lymph # (Auto) Edwards # (Auto) Eos # (Auto) Seg Neutrophils % Seg Neuts % (Manual) Baso # (Auto) Lymphocytes % (Manual) Monocytes % (Manual) Eosinophils % (Manual) Basophils % (Manual) Seg Neutrophils # Seg Neutrophils # Man Lymphocytes # (Manual) Monocytes # (Manual) Eosinophils # (Manual) Nucleated RBC % Basophils # (Manual) PT INR APTT Heparin Anti-Xa Level ABG pH POC ABG pO2 ABG pO2 ABG HCO3 ABG O2 Saturation ABG Base Excess POC ABG pCO2 ABG Hemoglobin ABG Oxyhemoglobin ABG Chloride ABG Glucose Oxyhemoglobin Sodium Potassium Chloride Carbon Dioxide BUN Creatinine Glucose POC Glucose 116 H 120 H 154 H Lactic Acid Calcium Phosphorus Magnesium AST ALT Lactate Dehydrogenase Total Bilirubin Direct Bilirubin CK-MB (CK-2) C-Reactive Protein NT-Pro-B Natriuret Pep Total Protein Albumin Arterial Blood Glucose Urine WBC (Auto) Urine Creatinine 02/19/20 02/20/20 02/20/20 23:43 00:24 00:24 WBC RBC Hgb 9.4 L Hct 30.0 L MCHC 31 L RDW 20.4 H MCV 79 L MCH 25 L Lymph % (Auto) Edwards % (Auto) 8.5 H Edwards # Eos # Lymph # (Auto) Edwards # (Auto) Eos # (Auto) Seg Neutrophils % Seg Neuts % (Manual) Baso # (Auto) Lymphocytes % (Manual) Monocytes % (Manual) Eosinophils % (Manual) Basophils % (Manual) Seg Neutrophils # Seg Neutrophils # Man Lymphocytes # (Manual) Monocytes # (Manual) Eosinophils # (Manual) Nucleated RBC % Basophils # (Manual) PT INR APTT Heparin Anti-Xa Level ABG pH POC ABG pO2 ABG pO2 ABG HCO3 ABG O2 Saturation ABG Base Excess POC ABG pCO2 ABG Hemoglobin ABG Oxyhemoglobin ABG Chloride ABG Glucose Oxyhemoglobin Sodium 147 H Potassium 3.4 L Chloride Carbon Dioxide 31 H BUN 34 H Creatinine 0.5 L Glucose 135 H POC Glucose 122 H Lactic Acid Calcium Phosphorus Magnesium AST ALT Lactate Dehydrogenase Total Bilirubin Direct Bilirubin CK-MB (CK-2) C-Reactive Protein NT-Pro-B Natriuret Pep Total Protein Albumin Arterial Blood Glucose Urine WBC (Auto) Urine Creatinine 02/20/20 02/20/20 02/20/20 06:07 06:45 12:03 WBC RBC Hgb Hct MCHC RDW MCV MCH Lymph % (Auto) Edwards % (Auto) Edwards # Eos # Lymph # (Auto) Edwards # (Auto) Eos # (Auto) Seg Neutrophils % Seg Neuts % (Manual) Baso # (Auto) Lymphocytes % (Manual) Monocytes % (Manual) Eosinophils % (Manual) Basophils % (Manual) Seg Neutrophils # Seg Neutrophils # Man Lymphocytes # (Manual) Monocytes # (Manual) Eosinophils # (Manual) Nucleated RBC % Basophils # (Manual) PT INR APTT Heparin Anti-Xa Level ABG pH 7.461 H POC ABG pO2 ABG pO2 ABG HCO3 33.3 H ABG O2 Saturation ABG Base Excess 8.4 H POC ABG pCO2 ABG Hemoglobin 10.0 L ABG Oxyhemoglobin ABG Chloride ABG Glucose Oxyhemoglobin 94.1 L Sodium Potassium Chloride Carbon Dioxide BUN Creatinine Glucose POC Glucose 109 H 128 H Lactic Acid Calcium Phosphorus Magnesium AST ALT Lactate Dehydrogenase Total Bilirubin Direct Bilirubin CK-MB (CK-2) C-Reactive Protein NT-Pro-B Natriuret Pep Total Protein Albumin Arterial Blood Glucose Urine WBC (Auto) Urine Creatinine 02/20/20 02/20/20 02/21/20 18:02 23:55 05:42 WBC RBC Hgb Hct MCHC RDW MCV MCH Lymph % (Auto) Edwards % (Auto) Edwards # Eos # Lymph # (Auto) Edwards # (Auto) Eos # (Auto) Seg Neutrophils % Seg Neuts % (Manual) Baso # (Auto) Lymphocytes % (Manual) Monocytes % (Manual) Eosinophils % (Manual) Basophils % (Manual) Seg Neutrophils # Seg Neutrophils # Man Lymphocytes # (Manual) Monocytes # (Manual) Eosinophils # (Manual) Nucleated RBC % Basophils # (Manual) PT INR APTT Heparin Anti-Xa Level ABG pH POC ABG pO2 ABG pO2 ABG HCO3 ABG O2 Saturation ABG Base Excess POC ABG pCO2 ABG Hemoglobin ABG Oxyhemoglobin ABG Chloride ABG Glucose Oxyhemoglobin Sodium Potassium Chloride Carbon Dioxide BUN Creatinine Glucose POC Glucose 118 H 125 H 127 H Lactic Acid Calcium Phosphorus Magnesium AST ALT Lactate Dehydrogenase Total Bilirubin Direct Bilirubin CK-MB (CK-2) C-Reactive Protein NT-Pro-B Natriuret Pep Total Protein Albumin Arterial Blood Glucose Urine WBC (Auto) Urine Creatinine 02/21/20 02/21/20 02/21/20 12:10 17:35 23:40 WBC RBC Hgb Hct MCHC RDW MCV MCH Lymph % (Auto) Edwards % (Auto) Edwards # Eos # Lymph # (Auto) Edwards # (Auto) Eos # (Auto) Seg Neutrophils % Seg Neuts % (Manual) Baso # (Auto) Lymphocytes % (Manual) Monocytes % (Manual) Eosinophils % (Manual) Basophils % (Manual) Seg Neutrophils # Seg Neutrophils # Man Lymphocytes # (Manual) Monocytes # (Manual) Eosinophils # (Manual) Nucleated RBC % Basophils # (Manual) PT INR APTT Heparin Anti-Xa Level ABG pH POC ABG pO2 ABG pO2 ABG HCO3 ABG O2 Saturation ABG Base Excess POC ABG pCO2 ABG Hemoglobin ABG Oxyhemoglobin ABG Chloride ABG Glucose Oxyhemoglobin Sodium Potassium Chloride Carbon Dioxide BUN Creatinine Glucose POC Glucose 128 H 113 H 125 H Lactic Acid Calcium Phosphorus Magnesium AST ALT Lactate Dehydrogenase Total Bilirubin Direct Bilirubin CK-MB (CK-2) C-Reactive Protein NT-Pro-B Natriuret Pep Total Protein Albumin Arterial Blood Glucose Urine WBC (Auto) Urine Creatinine 02/22/20 02/22/20 02/22/20 05:57 08:06 08:06 WBC RBC Hgb 10.8 L Hct 35.2 L MCHC 31 L RDW 21.8 H MCV 80 L MCH 25 L Lymph % (Auto) Edwards % (Auto) Edwards # Eos # Lymph # (Auto) Edwards # (Auto) Eos # (Auto) Seg Neutrophils % 71.5 H Seg Neuts % (Manual) Baso # (Auto) Lymphocytes % (Manual) Monocytes % (Manual) Eosinophils % (Manual) Basophils % (Manual) Seg Neutrophils # Seg Neutrophils # Man Lymphocytes # (Manual) Monocytes # (Manual) Eosinophils # (Manual) Nucleated RBC % Basophils # (Manual) PT INR APTT Heparin Anti-Xa Level ABG pH POC ABG pO2 ABG pO2 ABG HCO3 ABG O2 Saturation ABG Base Excess POC ABG pCO2 ABG Hemoglobin ABG Oxyhemoglobin ABG Chloride ABG Glucose Oxyhemoglobin Sodium 146 H Potassium Chloride Carbon Dioxide 34 H BUN 21 H Creatinine 0.4 L Glucose 149 H POC Glucose 138 H Lactic Acid Calcium Phosphorus Magnesium AST ALT Lactate Dehydrogenase Total Bilirubin Direct Bilirubin CK-MB (CK-2) C-Reactive Protein NT-Pro-B Natriuret Pep Total Protein Albumin Arterial Blood Glucose Urine WBC (Auto) Urine Creatinine 02/22/20 02/22/20 02/22/20 11:47 17:11 23:25 WBC RBC Hgb Hct MCHC RDW MCV MCH Lymph % (Auto) Edwards % (Auto) Edwards # Eos # Lymph # (Auto) Edwards # (Auto) Eos # (Auto) Seg Neutrophils % Seg Neuts % (Manual) Baso # (Auto) Lymphocytes % (Manual) Monocytes % (Manual) Eosinophils % (Manual) Basophils % (Manual) Seg Neutrophils # Seg Neutrophils # Man Lymphocytes # (Manual) Monocytes # (Manual) Eosinophils # (Manual) Nucleated RBC % Basophils # (Manual) PT INR APTT Heparin Anti-Xa Level ABG pH POC ABG pO2 ABG pO2 ABG HCO3 ABG O2 Saturation ABG Base Excess POC ABG pCO2 ABG Hemoglobin ABG Oxyhemoglobin ABG Chloride ABG Glucose Oxyhemoglobin Sodium Potassium Chloride Carbon Dioxide BUN Creatinine Glucose POC Glucose 149 H 144 H 142 H Lactic Acid Calcium Phosphorus Magnesium AST ALT Lactate Dehydrogenase Total Bilirubin Direct Bilirubin CK-MB (CK-2) C-Reactive Protein NT-Pro-B Natriuret Pep Total Protein Albumin Arterial Blood Glucose Urine WBC (Auto) Urine Creatinine 02/23/20 02/23/20 02/23/20 05:22 11:37 18:14 WBC RBC Hgb Hct MCHC RDW MCV MCH Lymph % (Auto) Edwards % (Auto) Edwards # Eos # Lymph # (Auto) Edwards # (Auto) Eos # (Auto) Seg Neutrophils % Seg Neuts % (Manual) Baso # (Auto) Lymphocytes % (Manual) Monocytes % (Manual) Eosinophils % (Manual) Basophils % (Manual) Seg Neutrophils # Seg Neutrophils # Man Lymphocytes # (Manual) Monocytes # (Manual) Eosinophils # (Manual) Nucleated RBC % Basophils # (Manual) PT INR APTT Heparin Anti-Xa Level ABG pH POC ABG pO2 ABG pO2 ABG HCO3 ABG O2 Saturation ABG Base Excess POC ABG pCO2 ABG Hemoglobin ABG Oxyhemoglobin ABG Chloride ABG Glucose Oxyhemoglobin Sodium Potassium Chloride Carbon Dioxide BUN Creatinine Glucose POC Glucose 144 H 113 H 127 H Lactic Acid Calcium Phosphorus Magnesium AST ALT Lactate Dehydrogenase Total Bilirubin Direct Bilirubin CK-MB (CK-2) C-Reactive Protein NT-Pro-B Natriuret Pep Total Protein Albumin Arterial Blood Glucose Urine WBC (Auto) Urine Creatinine 02/23/20 02/24/20 02/24/20 23:45 05:50 11:24 WBC RBC Hgb Hct MCHC RDW MCV MCH Lymph % (Auto) Edwards % (Auto) Edwards # Eos # Lymph # (Auto) Edwards # (Auto) Eos # (Auto) Seg Neutrophils % Seg Neuts % (Manual) Baso # (Auto) Lymphocytes % (Manual) Monocytes % (Manual) Eosinophils % (Manual) Basophils % (Manual) Seg Neutrophils # Seg Neutrophils # Man Lymphocytes # (Manual) Monocytes # (Manual) Eosinophils # (Manual) Nucleated RBC % Basophils # (Manual) PT INR APTT Heparin Anti-Xa Level ABG pH POC ABG pO2 ABG pO2 ABG HCO3 ABG O2 Saturation ABG Base Excess POC ABG pCO2 ABG Hemoglobin ABG Oxyhemoglobin ABG Chloride ABG Glucose Oxyhemoglobin Sodium Potassium Chloride Carbon Dioxide BUN Creatinine Glucose POC Glucose 123 H 117 H 126 H Lactic Acid Calcium Phosphorus Magnesium AST ALT Lactate Dehydrogenase Total Bilirubin Direct Bilirubin CK-MB (CK-2) C-Reactive Protein NT-Pro-B Natriuret Pep Total Protein Albumin Arterial Blood Glucose Urine WBC (Auto) Urine Creatinine 02/24/20 02/24/20 02/25/20 18:35 23:27 05:20 WBC RBC Hgb Hct MCHC RDW MCV MCH Lymph % (Auto) Edwards % (Auto) Edwards # Eos # Lymph # (Auto) Edwards # (Auto) Eos # (Auto) Seg Neutrophils % Seg Neuts % (Manual) Baso # (Auto) Lymphocytes % (Manual) Monocytes % (Manual) Eosinophils % (Manual) Basophils % (Manual) Seg Neutrophils # Seg Neutrophils # Man Lymphocytes # (Manual) Monocytes # (Manual) Eosinophils # (Manual) Nucleated RBC % Basophils # (Manual) PT INR APTT Heparin Anti-Xa Level ABG pH POC ABG pO2 ABG pO2 ABG HCO3 ABG O2 Saturation ABG Base Excess POC ABG pCO2 ABG Hemoglobin ABG Oxyhemoglobin ABG Chloride ABG Glucose Oxyhemoglobin Sodium Potassium Chloride Carbon Dioxide BUN Creatinine Glucose POC Glucose 121 H 127 H 133 H Lactic Acid Calcium Phosphorus Magnesium AST ALT Lactate Dehydrogenase Total Bilirubin Direct Bilirubin CK-MB (CK-2) C-Reactive Protein NT-Pro-B Natriuret Pep Total Protein Albumin Arterial Blood Glucose Urine WBC (Auto) Urine Creatinine 02/25/20 02/25/20 02/25/20 12:08 17:26 23:33 WBC RBC Hgb Hct MCHC RDW MCV MCH Lymph % (Auto) Edwards % (Auto) Edwards # Eos # Lymph # (Auto) Edwards # (Auto) Eos # (Auto) Seg Neutrophils % Seg Neuts % (Manual) Baso # (Auto) Lymphocytes % (Manual) Monocytes % (Manual) Eosinophils % (Manual) Basophils % (Manual) Seg Neutrophils # Seg Neutrophils # Man Lymphocytes # (Manual) Monocytes # (Manual) Eosinophils # (Manual) Nucleated RBC % Basophils # (Manual) PT INR APTT Heparin Anti-Xa Level ABG pH POC ABG pO2 ABG pO2 ABG HCO3 ABG O2 Saturation ABG Base Excess POC ABG pCO2 ABG Hemoglobin ABG Oxyhemoglobin ABG Chloride ABG Glucose Oxyhemoglobin Sodium Potassium Chloride Carbon Dioxide BUN Creatinine Glucose POC Glucose 109 H 120 H 120 H Lactic Acid Calcium Phosphorus Magnesium AST ALT Lactate Dehydrogenase Total Bilirubin Direct Bilirubin CK-MB (CK-2) C-Reactive Protein NT-Pro-B Natriuret Pep Total Protein Albumin Arterial Blood Glucose Urine WBC (Auto) Urine Creatinine 02/26/20 02/26/20 02/27/20 05:33 07:50 12:13 WBC RBC Hgb Hct MCHC RDW MCV MCH Lymph % (Auto) Edwards % (Auto) Edwards # Eos # Lymph # (Auto) Edwards # (Auto) Eos # (Auto) Seg Neutrophils % Seg Neuts % (Manual) Baso # (Auto) Lymphocytes % (Manual) Monocytes % (Manual) Eosinophils % (Manual) Basophils % (Manual) Seg Neutrophils # Seg Neutrophils # Man Lymphocytes # (Manual) Monocytes # (Manual) Eosinophils # (Manual) Nucleated RBC % Basophils # (Manual) PT INR APTT Heparin Anti-Xa Level ABG pH POC ABG pO2 ABG pO2 ABG HCO3 ABG O2 Saturation ABG Base Excess POC ABG pCO2 ABG Hemoglobin ABG Oxyhemoglobin ABG Chloride ABG Glucose Oxyhemoglobin Sodium Potassium Chloride Carbon Dioxide BUN Creatinine Glucose POC Glucose 106 H 130 H Lactic Acid Calcium Phosphorus Magnesium AST ALT Lactate Dehydrogenase Total Bilirubin Direct Bilirubin CK-MB (CK-2) C-Reactive Protein NT-Pro-B Natriuret Pep Total Protein Albumin Arterial Blood Glucose Urine WBC (Auto) > 182.0 H Urine Creatinine 02/27/20 02/27/20 02/28/20 18:20 23:33 05:01 WBC RBC Hgb Hct MCHC RDW MCV MCH Lymph % (Auto) Edwards % (Auto) Edwards # Eos # Lymph # (Auto) Edwards # (Auto) Eos # (Auto) Seg Neutrophils % Seg Neuts % (Manual) Baso # (Auto) Lymphocytes % (Manual) Monocytes % (Manual) Eosinophils % (Manual) Basophils % (Manual) Seg Neutrophils # Seg Neutrophils # Man Lymphocytes # (Manual) Monocytes # (Manual) Eosinophils # (Manual) Nucleated RBC % Basophils # (Manual) PT INR APTT Heparin Anti-Xa Level ABG pH POC ABG pO2 ABG pO2 ABG HCO3 ABG O2 Saturation ABG Base Excess POC ABG pCO2 ABG Hemoglobin ABG Oxyhemoglobin ABG Chloride ABG Glucose Oxyhemoglobin Sodium Potassium Chloride Carbon Dioxide BUN Creatinine Glucose POC Glucose 109 H 124 H 134 H Lactic Acid Calcium Phosphorus Magnesium AST ALT Lactate Dehydrogenase Total Bilirubin Direct Bilirubin CK-MB (CK-2) C-Reactive Protein NT-Pro-B Natriuret Pep Total Protein Albumin Arterial Blood Glucose Urine WBC (Auto) Urine Creatinine 02/28/20 02/28/20 02/28/20 11:54 18:16 23:03 WBC RBC Hgb Hct MCHC RDW MCV MCH Lymph % (Auto) Edwards % (Auto) Edwards # Eos # Lymph # (Auto) Edwards # (Auto) Eos # (Auto) Seg Neutrophils % Seg Neuts % (Manual) Baso # (Auto) Lymphocytes % (Manual) Monocytes % (Manual) Eosinophils % (Manual) Basophils % (Manual) Seg Neutrophils # Seg Neutrophils # Man Lymphocytes # (Manual) Monocytes # (Manual) Eosinophils # (Manual) Nucleated RBC % Basophils # (Manual) PT INR APTT Heparin Anti-Xa Level ABG pH POC ABG pO2 ABG pO2 ABG HCO3 ABG O2 Saturation ABG Base Excess POC ABG pCO2 ABG Hemoglobin ABG Oxyhemoglobin ABG Chloride ABG Glucose Oxyhemoglobin Sodium Potassium Chloride Carbon Dioxide BUN Creatinine Glucose POC Glucose 133 H 134 H 146 H Lactic Acid Calcium Phosphorus Magnesium AST ALT Lactate Dehydrogenase Total Bilirubin Direct Bilirubin CK-MB (CK-2) C-Reactive Protein NT-Pro-B Natriuret Pep Total Protein Albumin Arterial Blood Glucose Urine WBC (Auto) Urine Creatinine 02/29/20 02/29/20 02/29/20 05:24 11:34 17:12 WBC RBC Hgb Hct MCHC RDW MCV MCH Lymph % (Auto) Edwards % (Auto) Edwards # Eos # Lymph # (Auto) Edwards # (Auto) Eos # (Auto) Seg Neutrophils % Seg Neuts % (Manual) Baso # (Auto) Lymphocytes % (Manual) Monocytes % (Manual) Eosinophils % (Manual) Basophils % (Manual) Seg Neutrophils # Seg Neutrophils # Man Lymphocytes # (Manual) Monocytes # (Manual) Eosinophils # (Manual) Nucleated RBC % Basophils # (Manual) PT INR APTT Heparin Anti-Xa Level ABG pH POC ABG pO2 ABG pO2 ABG HCO3 ABG O2 Saturation ABG Base Excess POC ABG pCO2 ABG Hemoglobin ABG Oxyhemoglobin ABG Chloride ABG Glucose Oxyhemoglobin Sodium Potassium Chloride Carbon Dioxide BUN Creatinine Glucose POC Glucose 139 H 141 H 157 H Lactic Acid Calcium Phosphorus Magnesium AST ALT Lactate Dehydrogenase Total Bilirubin Direct Bilirubin CK-MB (CK-2) C-Reactive Protein NT-Pro-B Natriuret Pep Total Protein Albumin Arterial Blood Glucose Urine WBC (Auto) Urine Creatinine 02/29/20 03/01/20 03/01/20 23:35 06:00 11:53 WBC RBC Hgb Hct MCHC RDW MCV MCH Lymph % (Auto) Edwards % (Auto) Edwards # Eos # Lymph # (Auto) Edwards # (Auto) Eos # (Auto) Seg Neutrophils % Seg Neuts % (Manual) Baso # (Auto) Lymphocytes % (Manual) Monocytes % (Manual) Eosinophils % (Manual) Basophils % (Manual) Seg Neutrophils # Seg Neutrophils # Man Lymphocytes # (Manual) Monocytes # (Manual) Eosinophils # (Manual) Nucleated RBC % Basophils # (Manual) PT INR APTT Heparin Anti-Xa Level ABG pH POC ABG pO2 ABG pO2 ABG HCO3 ABG O2 Saturation ABG Base Excess POC ABG pCO2 ABG Hemoglobin ABG Oxyhemoglobin ABG Chloride ABG Glucose Oxyhemoglobin Sodium Potassium Chloride Carbon Dioxide BUN Creatinine Glucose POC Glucose 120 H 132 H 136 H Lactic Acid Calcium Phosphorus Magnesium AST ALT Lactate Dehydrogenase Total Bilirubin Direct Bilirubin CK-MB (CK-2) C-Reactive Protein NT-Pro-B Natriuret Pep Total Protein Albumin Arterial Blood Glucose Urine WBC (Auto) Urine Creatinine 03/01/20 03/01/20 03/02/20 17:36 23:16 05:12 WBC RBC Hgb Hct MCHC RDW MCV MCH Lymph % (Auto) Edwards % (Auto) Edwards # Eos # Lymph # (Auto) Edwards # (Auto) Eos # (Auto) Seg Neutrophils % Seg Neuts % (Manual) Baso # (Auto) Lymphocytes % (Manual) Monocytes % (Manual) Eosinophils % (Manual) Basophils % (Manual) Seg Neutrophils # Seg Neutrophils # Man Lymphocytes # (Manual) Monocytes # (Manual) Eosinophils # (Manual) Nucleated RBC % Basophils # (Manual) PT INR APTT Heparin Anti-Xa Level ABG pH POC ABG pO2 ABG pO2 ABG HCO3 ABG O2 Saturation ABG Base Excess POC ABG pCO2 ABG Hemoglobin ABG Oxyhemoglobin ABG Chloride ABG Glucose Oxyhemoglobin Sodium Potassium Chloride Carbon Dioxide BUN Creatinine Glucose POC Glucose 171 H 164 H 176 H Lactic Acid Calcium Phosphorus Magnesium AST ALT Lactate Dehydrogenase Total Bilirubin Direct Bilirubin CK-MB (CK-2) C-Reactive Protein NT-Pro-B Natriuret Pep Total Protein Albumin Arterial Blood Glucose Urine WBC (Auto) Urine Creatinine 03/02/20 03/02/20 03/03/20 11:42 18:01 00:06 WBC RBC Hgb Hct MCHC RDW MCV MCH Lymph % (Auto) Edwards % (Auto) Edwards # Eos # Lymph # (Auto) Edwards # (Auto) Eos # (Auto) Seg Neutrophils % Seg Neuts % (Manual) Baso # (Auto) Lymphocytes % (Manual) Monocytes % (Manual) Eosinophils % (Manual) Basophils % (Manual) Seg Neutrophils # Seg Neutrophils # Man Lymphocytes # (Manual) Monocytes # (Manual) Eosinophils # (Manual) Nucleated RBC % Basophils # (Manual) PT INR APTT Heparin Anti-Xa Level ABG pH POC ABG pO2 ABG pO2 ABG HCO3 ABG O2 Saturation ABG Base Excess POC ABG pCO2 ABG Hemoglobin ABG Oxyhemoglobin ABG Chloride ABG Glucose Oxyhemoglobin Sodium Potassium Chloride Carbon Dioxide BUN Creatinine Glucose POC Glucose 150 H 156 H 156 H Lactic Acid Calcium Phosphorus Magnesium AST ALT Lactate Dehydrogenase Total Bilirubin Direct Bilirubin CK-MB (CK-2) C-Reactive Protein NT-Pro-B Natriuret Pep Total Protein Albumin Arterial Blood Glucose Urine WBC (Auto) Urine Creatinine 03/03/20 03/03/20 03/03/20 03:31 11:20 16:55 WBC RBC Hgb Hct MCHC RDW MCV MCH Lymph % (Auto) Edwards % (Auto) Edwards # Eos # Lymph # (Auto) Edwards # (Auto) Eos # (Auto) Seg Neutrophils % Seg Neuts % (Manual) Baso # (Auto) Lymphocytes % (Manual) Monocytes % (Manual) Eosinophils % (Manual) Basophils % (Manual) Seg Neutrophils # Seg Neutrophils # Man Lymphocytes # (Manual) Monocytes # (Manual) Eosinophils # (Manual) Nucleated RBC % Basophils # (Manual) PT INR APTT Heparin Anti-Xa Level ABG pH POC ABG pO2 ABG pO2 ABG HCO3 ABG O2 Saturation ABG Base Excess POC ABG pCO2 ABG Hemoglobin ABG Oxyhemoglobin ABG Chloride ABG Glucose Oxyhemoglobin Sodium Potassium Chloride Carbon Dioxide BUN Creatinine Glucose POC Glucose 164 H 125 H 211 H Lactic Acid Calcium Phosphorus Magnesium AST ALT Lactate Dehydrogenase Total Bilirubin Direct Bilirubin CK-MB (CK-2) C-Reactive Protein NT-Pro-B Natriuret Pep Total Protein Albumin Arterial Blood Glucose Urine WBC (Auto) Urine Creatinine 03/04/20 03/04/20 03/04/20 00:29 05:20 12:09 WBC RBC Hgb Hct MCHC RDW MCV MCH Lymph % (Auto) Edwards % (Auto) Edwards # Eos # Lymph # (Auto) Edwards # (Auto) Eos # (Auto) Seg Neutrophils % Seg Neuts % (Manual) Baso # (Auto) Lymphocytes % (Manual) Monocytes % (Manual) Eosinophils % (Manual) Basophils % (Manual) Seg Neutrophils # Seg Neutrophils # Man Lymphocytes # (Manual) Monocytes # (Manual) Eosinophils # (Manual) Nucleated RBC % Basophils # (Manual) PT INR APTT Heparin Anti-Xa Level ABG pH POC ABG pO2 ABG pO2 ABG HCO3 ABG O2 Saturation ABG Base Excess POC ABG pCO2 ABG Hemoglobin ABG Oxyhemoglobin ABG Chloride ABG Glucose Oxyhemoglobin Sodium Potassium Chloride Carbon Dioxide BUN Creatinine Glucose POC Glucose 169 H 154 H 197 H Lactic Acid Calcium Phosphorus Magnesium AST ALT Lactate Dehydrogenase Total Bilirubin Direct Bilirubin CK-MB (CK-2) C-Reactive Protein NT-Pro-B Natriuret Pep Total Protein Albumin Arterial Blood Glucose Urine WBC (Auto) Urine Creatinine Allied health notes reviewed: nursing
[2020-03-04] MEDS: DIGOXIN 0.125 MG TAB PO SCH (18:09)
[2020-03-04 21:38] LABS: Eosinophils # (Auto) 0.2 K/mm3 (0.0-0.4); Eosinophils % (Auto) 2.2 % (0.0-4.3); Hematocrit 32.7 % (35.5-45.6); Hemoglobin 10.1 gm/dl (11.8-15.2); Mean Corpuscular HGB Conc 31 % (32-34); Mean Corpuscular Volume 79 fl (84-94); Monocytes # (Auto) 0.7 K/mm3 (0.0-0.8); Monocytes % (Auto) 8.9 % (0.0-7.3); Platelet Count 204 K/mm3 (140-440); Red Blood Count 4.12 M/mm3 (3.65-5.03)
[2020-03-04 21:39] LABS: Basophils % (Auto) 0.3 % (0.0-1.8); Red Cell Distribution Width 24.7 % (13.2-15.2)
[2020-03-04 21:43] LABS: Blood Urea Nitrogen 25 mg/dL (9-20); Hemolysis Index 27
[2020-03-04 21:44] LABS: BUN/Creatinine Ratio 50
[2020-03-04] MEDS: POLYETHYLENE GLYCOL 3350 17 GM POWDER PO SCH (22:49)
[2020-03-04] MEDS: TAMSULOSIN 0.4 MG CAP PO SCH (22:51)
[2020-03-05] MEDS: ONDANSETRON 4 MG/2 ML INJ IV PRN ×2 (01:47→20:04)
[2020-03-05] MEDS: INSULIN REGULAR, HUMAN 100 UNIT/ML 3ML VIAL SUB-Q SCH ×3 (06:15→17:56)
--- NOTE | 2020-03-05 08:44 | Progress Note ---
Assessment and Plan Assessment and plan: --Ischemic cardiomyopathy Cardiology is following, status post cardiac catheterization on 01/22/2020; Cor onary artery disease status post PCI and stent to the LAD Continue current cardiac medications --Acute on chronic hypoxemic respiratory failure; Patient has tracheostomy on vent Continue nebulizers, , trach care Wean off ventilator as tolerated Pulmonary critical following --Acute exacerbation of COPD; Patient is currently on ventilatory support Continue nebulizers --Left lower lobe PE; Continue Eliquis, ventilatory support --Acute right lower extremity DVT; Patient is on Eliquis --Bilateral multifocal pneumonia/community-acquired Completed antibiotics, improved --Severe sepsis/bilateral pneumonia: Completed antibiotics COVID-19 test; 11/24/2019; negative 11/26/2019; negative 12/29/2019: Negative --Paroxysmal atrial fibrillation; Now rate controlled, Stable on amiodarone and Eliquis --Acute on chronic combined systolic and diastolic congestive heart failure Ischemic cardiomyopathy left ventricular ejection fraction 40 to 45% --H/o CAD [[facility] 12/2018 in-stent restenosis] Patient is stable on current cardiac medications --Hypertensive emergency; present on admission Reasonable blood pressures, continue current antihypertensives As needed medications --History of alcohol abuse/alcohol withdrawal; Was on CIWA protocol, now stable --Oropharyngeal dysphagia; status post PEG placement Continue PEG feeds per protocol --History of partial small bowel obstruction; resolved --Obesity; BMI 34.7 Patient needs weight reduction when medically stable --Severe protein calorie malnutrition/hypoalbuminemia Nutrition supplements, dietitian following, PEG feeds --DVT prophylaxis;Eliquis --Full CODE STATUS Discharge planning 01/05; Pt stable. NGT output 650cc over 24 hours, bilious. No f/c, WBC within normal limits. cont NG suction and cont to hold TF 01/06: Abs series - mild improvement in small bowel distension in mid abdomen, normal gas/stool pattern in colon. NGT in duodenum. Continue to hold tube feeding, maintain NG tube with low intermittent suction. Patient's was updated by phone. Continue to provide supportive care and monitor clinically. 01/07: +BMs today and NGT/PEG output appears more gastric today. Plan to clamp NGT, if tolerates start TF from tomorrow. cont supportive care. 01/08; Gastric output decreased over last 24 hours. NGT has been clamped x 24 hours. plan to dc NGT and to start TTF via PEG - vital HF @10cc/hr 01/09: clinically stable, tolerating TF. monitor BMP, wean off from vent as tolerated clinically stable, on TF. wean off vent as tolerated 01/11: wean off from vent, cont to monitor, on TF 01/12: wean off from vent, cont to monitor, on TF. need placement - unfunded 01/13; remains on ventilatory support, unable to wean, DC planning possible LTAC, unfunded 01/14; patient of ventilatory support, T-piece tracheostomy on oxygen, LTAC placement per case management 01/16; tracheostomy, patient on full ventilatory support, wean off vent support as tolerated, pending LTAC placement, social financial issues 01/17; awaiting LTAC placement, insurance and financial issues 01/18; patient tracheostomy remains on ventilatory support 01/19; wean off ventilator as tolerated 01/20; remains on ventilatory support, patient complains of intermittent chest pain, cardiology recommend left heart catheterization tomorrow 01/22/2020. Patient for left heart catheterization per cardiology. Patient remains on AC mode ventilation rate 12, tidal volume 450, FiO2 30% and PEEP of 6. Continue tracheostomy care, airway management and secretion control. 01/23/2020. Cardiac catheterization completed yesterday revealed widely patent previous LAD stent with mild nonobstructive atherosclerosis of the right mid coronary artery and rest of the coronary system was without significant atherosclerosis. The left ventricle ejection fraction was mildly impaired at 40 to 45%. There was some hypokinesis of the basal inferior wall suggestive of previous or recent infarct. Continue GDMT for coronary artery disease including beta blockers, topical nitrates, statin and Plavix. Continue Eliquis for paroxysmal atrial fibrillation and PE. Continue diuresis with Lasix and follow electrolytes closely. Continue Robinul and scopolamine for secretion control and daily SBT per pulmonary. Also, continue bronchodilators and routine trach care/airway management. T-piece trials per pulmonary as tolerated. 01/24/2020. Recent cardiac catheterization has documented widely patent left anterior descending artery stent with minimal nonobstructive diffuse coronary artery disease in the rest of the coronary arteries. Evidence of ischemic cardiomyopathy with inferior wall hypokinesis. Continue with guideline directed medical therapy. Continue Robinul and scopolamine for secretion control and daily SBT per pulmonary. Continue bronchodilators and routine trach care/airway management. T-piece trials per pulmonary as tolerated. 01/25/2020. Continue with guideline directed medical therapy for systolic heart failure. Cardiac catheterization revealed evidence of ischemic cardiomyopathy with inferior wall hypokinesis (EF 40-45%). Patient currently on T-piece with oxygen 10 L/min FiO2 40%. Continue Robinul and scopolamine for secretion c ontrol. Continue bronchodilators and routine trach care/airway management. 02/03: Mental status more improved, agree with Reglan will change to IV scheduled for two days, no new vomiting. Pseudomonas A in Sputum. 02/04: Clinical improving, amiodarone discontinued due to LFTs, continue Metoprolol.d/w GI, started on Golytely to clear impaction. Started on dialy Miralax. 02/05: Continue supportive care. Noted bowel movement, continue bowel regimen 02/06: Cardiology input noted beta-hebert increased for better suppression of atrial fibrillation. Continue to monitor, no other evidence of nausea vomiting noted. Discussed with respiratory therapist will be continued on weaning protocol with pressure support today. 02/07: Patient successfully weaned off the ventilator, No new complaints, co ntinue monitoring, BM noted, Discussed with pulmonary, 02/08; tracheostomy on T-piece, patient is more alert and awake today 02/09; clinically no change, tracheostomy on vent 02/10; tracheostomy on vent, full CODE STATUS, poor prognosis, 02/11; clinically no change, remains on ventilatory support, full CODE STATUS, discussed with spouse Ms. Paulette Araiza extensively today 02/12. Patient resting comfortably no change on vent with tracheostomy. Still unable to wean. Some increased crackles today. 02/13: Still unable to wean from the vent. Overall prognosis remains extremely poor. 02/14; remains critically ill, tracheostomy on vent, unable to wean, poor prognosis, full CODE STATUS 02/15; patient is more alert and awake today, chronic tracheostomy on T-piece, continue current management DC planning per case management. Disposition very difficult due to lack of resources and insurance 02/17/2020. Patient remains on mechanical ventilation and tolerating PSV trials. Patient currently with PSV 10/6 at FiO2 of 30%. 02/18/2020. Patient currently on PSV 10/6 with FiO2 of 40%. 40% T-piece trial was attempted but patient unable to tolerate due to saturations dropping into the 80s and heart rate in the 140s. Therefore, patient placed back on PSV. Continue anticoagulation with Eliquis. Continue secretion control with Robinul and scopolamine. Continue rate control with metoprolol and digoxin. 02/19/2020. Patient currently on PSV 10/6 with FiO2 of 30%. T-piece trial attempted yesterday but patient did not tolerate. Continue T-piece trials as tolerated. Continue anticoagulation with Eliquis. Continue secretion control with Robinul and scopolamine. Continue rate control with metoprolol and digoxin. Continue to follow with case management with regards to discharge kyrie nning. 02/20/2020. Patient continues to tolerate PSV 10/6. Continue rate control with metoprolol and digoxin. Amiodarone discontinued due to elevated liver transaminases. Eliquis for anticoagulation acute PE/DVT. 02/21/2020. Patient continues to tolerate PSV 10/6 at FiO2 of 30%. Continue rate control with metoprolol and digoxin. Amiodarone discontinued due to elevated liver transaminases. Eliquis for anticoagulation acute PE/DVT. 02/22/2020. Patient continues to tolerate PSV 10/6 at FiO2 of 30%. Continue rate control with metoprolol and digoxin. Amiodarone discontinued due to kasia vated liver transaminases. Eliquis for anticoagulation acute PE/DVT. 02/22. Awake and alert on vent. Vitals stable. 02/23. Awake and alert on vent. Requests for ice. Vitals stable 02/24. Trach to vent. Continue rate control with metoprolol and digoxin. Amiodarone discontinued due to elevated liver transaminases. Eliquis for anticoagulation of acute PE/DVT. Transferred to [facility] 02/25. Seen in [facility]. Requests for ice. RN to provide a cube of ice. Vitals stable. 02/26. No change in medical condition. Slightly tachy this AM. Will monitor. 02/27. Cardiology started him on a beta hebert. Still on vent 02/28. Discharge planning as per checker cashier. Still on vent. Tachycardia noted. 03/01/2020; patient is tachycardic, still on the vent. Discharge management as per checker cashier. 03/02/2020; patient is on a vent and trach. Discharge is per checker cashier. 03/03/2012; patient is on vent and trach patient is alert and oriented. 03/04/2020; patient is on vent and trach, patient is alert. Discharge is per pulmonary. 03/05/2020; patient is on vent and trach, patient is alert. Discharge is per pulmonary. The high probability of a clinically significant, sudden or life threatening deterioration of the [Respiratory, cardiovascular & neurological] system(s) required my full and direct attention, intervention and personal management. The aggregate critical care time was [32] minutes without overlap. Time includes spent on [x] Data Review and interpretation [x] Patient assessment and monitoring of vital signs [x] Documentation [x] Medication orders and management History Interval history: Patient was seen and evaluated this morning Patient trach and intubated Hospitalist Physical - Physical exam Narrative exam: Patient is on trach Patient is obese Vital signs as documented. Head exam is unremarkable. No scleral icterus . Neck is without jugular venous distension, thyromegaly, or carotid bruits. Lungs intubated and on mechanical ventilator Cardiac exam reveals regular rate and Rhythm. Abdominal exam reveals normal bowel sounds, nontender, no organomegaly. Extremities are nonedematous and both femoral and pedal pulses are normal. 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 - Constitutional Vitals: Temp Pulse Resp BP Pulse Ox 97.4 F L 112 H 25 H 111/77 100 03/05/20 07:55 03/05/20 08:11 03/05/20 08:11 03/05/20 08:11 03/05/20 08:11 General appearance: Present: no acute distress, well-nourished, obese, other (Tracheostomy responds to simple questions appropriately) HEART Score - HEART Score Troponin: Troponin T < 0.010 ng/mL (0.00-0.029) 01/19/20 01:35 Results - Labs CBC & Chem 7: 03/04/20 20:38 03/04/20 20:38 Labs: Laboratory Last Values WBC 7.4 K/mm3 (4.5-11.0) 03/04/20 20:38 RBC 4.12 M/mm3 (3.65-5.03) 03/04/20 20:38 Hgb 10.1 gm/dl (11.8-15.2) L 03/04/20 20:38 Hct 32.7 % (35.5-45.6) L 03/04/20 20:38 MCV 79 fl (84-94) L 03/04/20 20:38 MCH 24 pg (28-32) L 03/04/20 20:38 MCHC 31 % (32-34) L 03/04/20 20:38 RDW 24.7 % (13.2-15.2) H 03/04/20 20:38 Plt Count 204 K/mm3 (140-440) 03/04/20 20:38 Lymph % (Auto) 27.0 % (13.4-35.0) 03/04/20 20:38 [place] % (Auto) 8.9 % (0.0-7.3) H 03/04/20 20:38 Eos % (Auto) 2.2 % (0.0-4.3) 03/04/20 20:38 Baso % (Auto) 0.3 % (0.0-1.8) 03/04/20 20:38 Lymph # (Auto) 2.0 K/mm3 (1.2-5.4) 03/04/20 20:38 [place] # (Auto) 0.7 K/mm3 (0.0-0.8) 03/04/20 20:38 Eos # (Auto) 0.2 K/mm3 (0.0-0.4) 03/04/20 20:38 Baso # (Auto) 0.0 K/mm3 (0.0-0.1) 03/04/20 20:38 Add Manual Diff Complete 02/15/20 06:59 Total Counted 100 02/15/20 06:59 Seg Neutrophils % 61.6 % (40.0-70.0) 03/04/20 20:38 Seg Neuts % (Manual) 58.0 % (40.0-70.0) 02/15/20 06:59 Band Neutrophils % 0 % 02/15/20 06:59 Lymphocytes % (Manual) 34.0 % (13.4-35.0) 02/15/20 06:59 Reactive Lymphs % (Man) 1.0 % 02/15/20 06:59 Monocytes % (Manual) 4.0 % (0.0-7.3) 02/15/20 06:59 Eosinophils % (Manual) 0 % (0.0-4.3) 02/15/20 06:59 Basophils % (Manual) 2.0 % (0.0-1.8) H 02/15/20 06:59 Metamyelocytes % 1.0 % 02/15/20 06:59 Myelocytes % 0 % 02/15/20 06:59 Promyelocytes % 0 % 02/15/20 06:59 Blast Cells % 0 % 02/15/20 06:59 Nucleated RBC % 1.0 % (0.0-0.9) H 02/15/20 06:59 Seg Neutrophils # 4.6 K/mm3 (1.8-7.7) 03/04/20 20:38 Seg Neutrophils # Man 5.9 K/mm3 (1.8-7.7) 02/15/20 06:59 Band Neutrophils # 0.0 K/mm3 02/15/20 06:59 Lymphocytes # (Manual) 3.5 K/mm3 (1.2-5.4) 02/15/20 06:59 Abs React Lymphs (Man) 0.1 K/mm3 02/15/20 06:59 Monocytes # (Manual) 0.4 K/mm3 (0.0-0.8) 02/15/20 06:59 Eosinophils # (Manual) 0.0 K/mm3 (0.0-0.4) 02/15/20 06:59 Basophils # (Manual) 0.2 K/mm3 (0.0-0.1) H 02/15/20 06:59 Metamyelocytes # 0.1 K/mm3 02/15/20 06:59 Myelocytes # 0.0 K/mm3 02/15/20 06:59 Promyelocytes # 0.0 K/mm3 02/15/20 06:59 Blast Cells # 0.0 K/mm3 02/15/20 06:59 WBC Morphology Not Reportable 02/15/20 06:59 Hypersegmented Neuts Not Reportable 02/15/20 06:59 Hyposegmented Neuts Not Reportable 02/15/20 06:59 Hypogranular Neuts Not Reportable 02/15/20 06:59 Smudge Cells Not Reportable 02/15/20 06:59 Toxic Granulation Not Reportable 02/15/20 06:59 Toxic Vacuolation Not Reportable 02/15/20 06:59 Dohle Bodies Not Reportable 02/15/20 06:59 Pelger-Huet Anomaly Not Reportable 02/15/20 06:59 Hector Rods Not Reportable 02/15/20 06:59 Platelet Estimate Consistent w auto 02/15/20 06:59 Clumped Platelets Not Reportable 02/15/20 06:59 Plt Clumps, EDTA Not Reportable 02/15/20 06:59 Large Platelets Not Reportable 02/15/20 06:59 Giant Platelets Not Reportable 02/15/20 06:59 Platelet Satelliting Not Reportable 02/15/20 06:59 Plt Morphology Comment Giant platelets 02/15/20 06:59 RBC Morphology Not Reportable 02/15/20 06:59 Dimorphic RBCs Not Reportable 02/15/20 06:59 Polychromasia Not Reportable 02/15/20 06:59 Hypochromasia 1+ 02/15/20 06:59 Poikilocytosis Few 02/15/20 06:59 Anisocytosis 1+ 02/15/20 06:59 Microcytosis Not Reportable 02/15/20 06:59 Macrocytosis Not Reportable 02/15/20 06:59 Spherocytes Not Reportable 02/15/20 06:59 Pappenheimer Bodies Not Reportable 02/15/20 06:59 Sickle Cells Not Reportable 02/15/20 06:59 Target Cells 1+ 02/15/20 06:59 Tear Drop Cells Few 02/15/20 06:59 Ovalocytes Not Reportable 02/15/20 06:59 Helmet Cells Not Reportable 02/15/20 06:59 [place] Bodies Not Reportable 02/15/20 06:59 [place] Rings Not Reportable 02/15/20 06:59 Oc Cells Not Reportable 02/15/20 06:59 Bite Cells Not Reportable 02/15/20 06:59 Crenated Cell Not Reportable 02/15/20 06:59 Elliptocytes Few 02/15/20 06:59 Acanthocytes (Spur) Not Reportable 02/15/20 06:59 Rouleaux Not Reportable 02/15/20 06:59 Hemoglobin C Crystals Not Reportable 02/15/20 06:59 Schistocytes Not Reportable 02/15/20 06:59 Malaria parasites Not Reportable 02/15/20 06:59 [place] Bodies Not Reportable 02/15/20 06:59 Hem Pathologist Commnt No 02/15/20 06:59 PT 27.0 Sec. (12.2-14.9) H 02/07/20 15:03 INR 2.46 (0.87-1.13) H 02/07/20 15:03 APTT 31.5 Sec. (24.2-36.6) 01/22/20 09:58 Heparin Anti-Xa Level 1.34 U.I./ml (0.3-0.7) H 01/22/20 04:45 ABG pH 7.461 pH Units (7.350-7.450) H 02/20/20 06:45 POC ABG pCO2 34.8 mmHg (32.0-48.0) 02/11/20 14:11 ABG pCO2 47.8 mm Hg 02/20/20 06:45 POC ABG pO2 77.7 mmHg (83-108) L 02/11/20 14:11 ABG pO2 88.7 mm Hg (80.0-90.0) 02/20/20 06:45 POC ABG HCO3 26.7 02/11/20 14:11 ABG HCO3 33.3 mmol/L (20.0-26.0) H 02/20/20 06:45 ABG O2 Saturation 97.2 % (95.0-99.0) 02/20/20 06:45 ABG O2 Content 13.3 (0.0-44) 02/20/20 06:45 POC ABG Base Excess 3.6 02/11/20 14:11 ABG Base Excess 8.4 mmol/L (-2.0-3.0) H 02/20/20 06:45 ABG Hemoglobin 10.0 gm/dl (14.0-18.0) L 02/20/20 06:45 ABG Oxyhemoglobin 84 (94-98) L 12/22/19 03:22 ABG Carboxyhemoglobin 2.9 % (0.0-5.0) 02/20/20 06:45 ABG Methemoglobin 0.4 % (0.0-1.5) 02/20/20 06:45 ABG Sodium 144.7 mmol/L (136.0-145.0) 02/11/20 14:11 ABG Potassium 3.5 mmol/L (3.40-4.50) 02/11/20 14:11 ABG Chloride 108.0 mmol/L (98-107) H 02/11/20 14:11 ABG Glucose 151 mg/dL (65-95) H 02/11/20 14:11 Oxyhemoglobin 94.1 % (95.0-99.0) L 02/20/20 06:45 Carboxyhemoglobin 0.7 (0.5-1.5) 12/22/19 03:22 FiO2 30 % 02/20/20 06:45 Sodium 136 mmol/L (137-145) L 03/04/20 20:38 Potassium 4.5 mmol/L (3.6-5.0) 03/04/20 20:38 Chloride 99.8 mmol/L (98-107) 03/04/20 20:38 Carbon Dioxide 28 mmol/L (22-30) 03/04/20 20:38 Anion Gap 13 mmol/L 03/04/20 20:38 BUN 25 mg/dL (9-20) H 03/04/20 20:38 Creatinine 0.5 mg/dL (0.8-1.3) L 03/04/20 20:38 Estimated GFR > 60 ml/min 03/04/20 20:38 BUN/Creatinine Ratio 50 % 03/04/20 20:38 Glucose 148 mg/dL (75-100) H 03/04/20 20:38 POC Glucose 155 mg/dL (70-105) H 03/05/20 05:44 Lactic Acid 1.60 mmol/L (0.7-2.0) 02/03/20 12:49 Calcium 9.0 mg/dL (8.4-10.2) 03/04/20 20:38 Ferritin 84.4 ng/mL (30.0-300.0) 11/24/19 04:53 Phosphorus 4.10 mg/dL (2.5-4.5) 01/31/20 19:24 Magnesium 2.40 mg/dL (1.7-2.3) H 02/10/20 07:40 Total Bilirubin 1.30 mg/dL (0.1-1.2) H 02/08/20 19:00 Direct Bilirubin 0.9 mg/dL (0-0.2) H 02/08/20 19:00 Indirect Bilirubin 0.4 mg/dL 02/08/20 19:00 Total Creatine Kinase 141 units/L (55-170) 11/24/19 02:53 CK-MB (CK-2) 4.3 ng/mL (0.0-4.0) H 11/24/19 02:53 AST 309 units/L (5-40) H 02/08/20 19:00 ALT 650 units/L (7-56) H 02/08/20 19:00 CK-MB (CK-2) Rel Index 3.0 (0-4) 11/24/19 02:53 Alkaline Phosphatase 109 units/L (35-129) 02/08/20 19:00 C-Reactive Protein 8.50 mg/dL (0.00-1.30) H 12/01/19 12:16 Ammonia 35.0 umol/L (25-60) 02/03/20 12:49 Lactate Dehydrogenase 228 units/L (91-180) H 12/19/19 04:45 Troponin T < 0.010 ng/mL (0.00-0.029) 01/19/20 01:35 NT-Pro-B Natriuret Pep 3866 pg/mL (0-900) H 01/01/20 10:40 Total Protein 6.2 g/dL (6.3-8.2) L 02/08/20 19:00 Albumin 2.7 g/dL (3.9-5) L 02/08/20 19:00 Albumin/Globulin Ratio 0.8 % 02/08/20 19:00 Procalcitonin 0.44 ng/mL (<0.15) 02/03/20 12:49 Arterial Blood Glucose 151 mg/dL (65-95) H 02/11/20 14:11 Arterial Blood Ionized Calcium 4.7 mg/dL (4.6-5.3) 02/11/20 14:11 Urine Color Cecy (Yellow) 02/26/20 07:50 Urine Turbidity Clear (Clear) 02/26/20 07:50 Urine pH 5.0 (5.0-7.0) 02/26/20 07:50 Ur Specific [place] 1.025 (1.003-1.030) 02/26/20 07:50 Urine Protein 30 mg/dl mg/dL (Negative) 02/26/20 07:50 Urine Glucose (UA) Neg mg/dL (Negative) 02/26/20 07:50 Urine Ketones Neg mg/dL (Negative) 02/26/20 07:50 Urine Blood Sm (Negative) 02/26/20 07:50 Urine Nitrite Neg (Negative) 02/26/20 07:50 Urine Bilirubin Neg (Negative) 02/26/20 07:50 Urine Urobilinogen 4.0 mg/dL (<2.0) 02/26/20 07:50 Ur Leukocyte Esterase Lg (Negative) 02/26/20 07:50 Urine WBC (Auto) > 182.0 /HPF (0.0-6.0) H 02/26/20 07:50 Urine RBC (Auto) 84.0 /HPF (0.0-6.0) 02/26/20 07:50 U Epithel Cells (Auto) 2.0 /HPF (0-13.0) 12/31/19 18:04 Urine Bacteria (Auto) 4+ /HPF (Negative) 02/26/20 07:50 Urine WBC Clumps 2+ /HPF 02/26/20 07:50 Urine Mucus 1+ /HPF 02/26/20 07:50 Urine Creatinine 57.4 mg/dL (0.1-20.0) H 01/31/20 Unknown Urine Sodium 59 mmol/L 01/31/20 Unknown Vancomycin Trough 14.2 ug/mL (5.0-20.0) 12/13/19 15:01 Coronavirus (PCR) Negative (Negative) 12/29/19 10:07 Hepatitis A IgM Ab Non-reactive (NonReactive) 02/05/20 06:37 Hep Bs Antigen Non-reactive (Negative) 02/05/20 06:37 Hep B Core IgM Ab Non-reactive (NonReactive) 02/05/20 06:37 Hepatitis C Antibody Non-reactive (NonReactive) 02/05/20 06:37 Blood Type O POSITIVE 01/21/20 13:00 Antibody Screen Negative 01/21/20 13:00 - Diagnostic Impressions Diagnostic Impressions: Echocardiogram 11/29/19 07:37 Transthoracic Echocardiogram Indication: CHF BP: 116/72 HR: 33 Conclusions *The study is technically limited due to poor acoustic windows. *Global left ventricular systolic function is normal. *The estimated ejection fraction is 50-55%. *Mild concentric left ventricular hypertrophy is observed. *There is trace of mitral regurgitation. *There is mild tricuspid regurgitation. Findings Procedure Info: The study quality is poor. The study is technically limited due to poor acoustic windows. The study is technically limited due to patient body habitus. Left Ventricle: The left ventricular chamber size is normal. Mild concentric left ventricular hypertrophy is observed. Global left ventricular systolic function is normal. The estimated ejection fraction is 50-55%. Left Atrium: The left atrial chamber size is normal. Right Ventricle: The right ventricular cavity size is normal. Right Atrium: The right atrial cavity size is normal. Aortic Valve: The aortic valve leaflets are moderately thickened. There is trace of aortic regurgitation. There is no evidence of aortic stenosis. Mitral Valve: The mitral valve leaflets are mildly thickened. There is trace of mitral regurgitation. There is no evidence of mitral stenosis. Tricuspid Valve: There is mild tricuspid regurgitation. No pulmonary hypertension is noted. Pulmonic Valve: There is trace pulmonic regurgitation. Pericardium: There is no pericardial effusion. Aorta: There is no dilatation of the aortic root. Venous: The inferior vena cava appears normal in size. Contrast: Definity was used to optimize study. Intravenous contrast was used to enhance endocardial border definition. Measurements Chambers 2D Name Value Normal Range Ao root diameter (2D) 3.4 cm (2 - 3.7) Aortic Valve Name Value Normal Range AV Vmax 0.98 m/sec - AV VTI 16.76 cm - AV peak gradient 3.83 mmHg - AV mean gradient 2.57 mmHg - LVOT diameter 3.11 cm - LVOT Vmax 0.68 m/sec - LVOT VTI 11.52 cm - LVOT peak gradient 1.84 mmHg - LVOT mean gradient 1.27 mmHg - SV LVOT 87.31 ml - MALOU (continuity Vmax) 5.24 cm2 - MALOU (continuity VTI) 5.21 cm2 - Tricuspid Valve Name Value Normal Range IVC diameter 2.24 cm (1.2 - 2.3) Hoffman/IV: Voiding Method Indwelling Catheter IV Catheter Type [Left INT / Saline Lock Antecubital] IV Catheter Type [Right INT / Saline Lock Forearm] IV Catheter Type [Right Hand] Peripheral IV IV Catheter Type [Right Upper INT / Saline Lock arm] IV Catheter Type [Left Upper Mid-line arm] IV Catheter Type [Left Forearm Peripheral IV ] IV Catheter Type [Left Hand] Peripheral IV IV Catheter Type [Left Wrist] INT / Saline Lock IV Catheter Type [Right Peripheral IV Antecubital] Active Medications - Current Medications Current Medications: Generic Name Dose Route Start Last Admin Trade Name Freq PRN Reason Stop Dose Admin Lipase/Protease/Amylase 1 each 01/09/20 12:01 Nadir Betancourt 10,500 Unit FEEDTUBE PRN PRN For Clogged Feeding Tube Apixaban 5 mg 01/22/20 22:00 03/04/20 22:51 Eliquis PO 5 mg Q12HR CAR Administration Protocol Atorvastatin Calcium 40 mg 01/20/20 22:00 03/04/20 22:52 Lipitor PO 40 mg QHS CAR Administration Clopidogrel Bisulfate 75 mg 01/21/20 06:00 03/04/20 09:14 Plavix PO 75 mg QDAY CAR Administration Dextrose 50 ml 01/31/20 18:51 02/05/20 00:56 D50w (25gm) Syringe IV 50 ml Q30MIN PRN Administration Hypoglycemia Protocol Digoxin 0.125 mg 02/25/20 17:00 03/04/20 18:09 Lanoxin PO 0.125 mg DAILY@1700 CAR Administration Docusate Sodium 100 mg 02/22/20 10:00 03/04/20 22:51 Colace FEEDTUBE 100 mg BID CAR Administration Glycopyrrolate 2 mg 02/24/20 21:00 03/04/20 22:51 Glycopyrrolate PO 2 mg TID CAR Administration Haloperidol Lactate 5 mg 02/10/20 14:20 03/03/20 02:25 Haldol IV 5 mg Q6H PRN Administration Agitation Hydrophilic Ointment 1 applic 01/17/20 15:26 02/24/20 23:20 Vaseline Lip Therapy TP 1 applic DIRECT PRN Administration Dry Lips Insulin Human Regular 0 unit 02/01/20 18:00 03/05/20 06:15 Humulin R SUB-Q 1 unit Q6H CAR Administration Protocol Lansoprazole 30 mg 02/05/20 16:00 03/04/20 09:14 Prevacid Solutab FEEDTUBE 30 mg QDAY CAR Administration Metoprolol Tartrate 5 mg 01/11/20 08:00 03/03/20 01:46 Metoprolol IV 5 mg Q6H PRN Administration SEE INSTRUCTIONS Metoprolol Tartrate 12.5 mg 02/28/20 12:00 03/04/20 22:52 Metoprolol FEEDTUBE 12.5 mg BID CAR Administration Midodrine 15 mg 02/04/20 16:00 03/04/20 15:28 Midodrine 5 Mg Tab PO 15 mg TID@0800,1200,1600 CAR Administration Morphine Sulfate 2 mg 01/06/20 15:41 03/03/20 10:05 Morphine 2 Mg/1 Ml Inj IV 2 mg Q4H PRN Administration Pain, Moderate (4-6) Multi-Ingred Cream/Lotion/Oil/Oint 1 applic 02/01/20 15:52 Artificial Tears Ophth Oint OU Q4HR PRN Dry Eye(s) Nitroglycerin 0.4 mg 01/19/20 21:09 01/20/20 03:03 Nitrostat SL 0.4 mg .Q5MIN PRN Administration Chest Pain Ondansetron HCl 4 mg 01/05/20 14:37 03/05/20 01:47 Ondansetron 4 Mg/2 Ml Inj IV 4 mg Q8H PRN Administration Nausea And Vomiting Polyethylene Glycol 17 gm 12/04/19 22:00 03/04/20 22:49 Miralax 3350 PO 17 gm QHS CAR Administration Quetiapine Fumarate 300 mg 01/13/20 22:00 03/04/20 22:49 Seroquel PO 300 mg BID CAR Administration Scopolamine 1 each 01/07/20 20:00 01/07/20 21:08 Transderm-Scop TD 1 each Q72HR CAR Administration Simple Syrup 15 ml 01/09/20 12:01 Simple Syrup FEEDTUBE PRN PRN Hypoglycemia Simple Syrup 30 ml 01/09/20 12:01 Simple Syrup FEEDTUBE PRN PRN Hypoglycemia Sodium Bicarbonate 325 mg 01/09/20 12:01 Sodium Bicarbonate FEEDTUBE PRN PRN For Clogged Feeding Tube Sodium Chloride 10 ml 11/24/19 10:00 03/04/20 22:52 Sodium Chloride Flush Syringe 10 Ml IV 10 ml BID CAR Administration Tamsulosin HCl 0.8 mg 12/20/19 22:00 03/04/20 22:51 Flomax PO 0.8 mg QHS CAR Administration Nutrition/Malnutrition Assess - Dietary Evaluation Nutrition/Malnutrition Findings: Nutrition Notes Start: 11/24/19 12:22 Freq: Status: Active Protocol: Document 03/04/20 11:05 EN (Rec: 03/04/20 11:13 EN [email or web address]) Co-Sign 03/04/20 11:05 LM Nutrition Notes Initial or Follow up Reassessment Current Diagnosis Coronary Artery Disease,Heart Failure,Respiratory Failure, Stroke,Hyperlipidemia Other Pertinent Diagnosis Partial SBO, pneu Current Diet Osmolite 1.5 at 65ml/hr Labs/Tests POC Glu 154 Pertinent Medications Humulin Height 6 ft 2 in Weight 123.8 kg [place] Body Weight (kg) 86.36 BMI 35.0 Weight change and time frame Wt change noted. Weight Status Obese Subjective/Other Information F/u for TF tolerance and Na labs. No new Na labs. TF infusing at goal and pt tolerating well. RN reports no gastric residuals and pt had BM this morning. Percent of energy/protein needs met: 95%/97% Burn Absent Trauma Absent GI Symptoms None Current % PO Negligible Minimum of two criteria Yes Muscle Mass Mild Depletion (non-severe) Fluid Accumulation Mild (non-severe) Reduced [employer] Strength Measurably Reduced (severe) #2 Nutrition Diagnosis Malnutrition Diagnosis Progress(for reassessment Continues documentation) #1 Nutrition Diagnosis Inadequate oral intake Diagnosis Progress(for reassessment Continues documentation) Is patient on ventilator? Yes Is Patient Ambulatory and/or Out of Bed No REE-([facility]-confined to bed) 2527.860 Kcal/Kg value to use for calculation 17 Approximate Energy Requirements Using 2105 kcal/Kg Calculation Used for Recommendations Kcal/kg Additional Notes Protein needs are 173g ( greater than 2g/kg IBW) Fluid needs are 1 ml/kcal Nutrition Intervention Change Diet Order: Continue TF via PEG Nutrition Support: Osmolite 1.5 at 65 ml/hr. Flush 200 ml q4h. Kcal 2,340 Protein (gm) 98 Fluid (mL) 1,189 Goal #1 Meet at least 75% of pt's energy and protein needs Goal #2 Weight maintenance Anticipated Discharge Needs: unable to determine at this time Follow-Up By: 03/07/20 Additional Comments F/u for TF tolerance, weight and Na lab
[2020-03-05] MEDS: GLYCOPYRROLATE 2 MG TAB PO SCH ×3 (09:29→21:02)
[2020-03-05] MEDS: METOPROLOL TARTRATE 25 MG TAB FEEDTUBE SCH ×2 (09:29→21:01)
[2020-03-05] MEDS: APIXABAN 5 MG TAB PO SCH ×2 (09:29→21:03)
[2020-03-05] MEDS: DOCUSATE SODIUM 100 MG/10 ML ORAL LIQD FEEDTUBE SCH ×2 (09:29→21:02)
[2020-03-05] MEDS: QUEtiapine 100 MG TAB PO SCH ×2 (09:29→21:02)
[2020-03-05] MEDS: LANSOPRAZOLE 30 MG SOLUTAB FEEDTUBE SCH (09:30)
[2020-03-05] MEDS: MIDODRINE 5 MG TAB PO SCH ×3 (09:30→16:36)
[2020-03-05] MEDS: CLOPIDOGREL 75 MG TAB PO SCH (09:30)
[2020-03-05] MEDS: DIGOXIN 0.125 MG TAB PO SCH (16:36)
[2020-03-05] MEDS: TAMSULOSIN 0.4 MG CAP PO SCH (21:02)
[2020-03-05] MEDS: POLYETHYLENE GLYCOL 3350 17 GM POWDER PO SCH (21:03)
--- NOTE | 2020-03-05 21:55 | Progress Note ---
Assessment and Plan Patient admitted for acute hypoxic respiratory failure, S/P tracheostomy.Patient sleeping. Resting on assist control mechanical ventilation, rate 12,Tidal volume 450, FIO2 35%, PEEP 6 and O2 saturation running 99%. ABG FIO2 30%. ABG pH 7.461 pH Units (7.350-7.450) H 02/20/20 06:45 POC ABG pCO2 34.8 mmHg (32.0-48.0) 02/11/20 14:11 ABG pCO2 47.8 mm Hg 02/20/20 06:45 POC ABG pO2 77.7 mmHg (83-108) L 02/11/20 14:11 ABG pO2 88.7 mm Hg (80.0-90.0) 02/20/20 06:45 POC ABG HCO3 26.7 02/11/20 14:11 ABG O2 Saturation 97.2 % (95.0-99.0) 02/20/20 06:45 Patient afebrile. No leukocytosis. Chest xray done 03/01/20 reported Essentially unchanged airspace disease when compared to 02/18/2020. Patient presently not on any antibiotics. Patient is on Apixaban and prevacid. I spent critical care time of 35 minutes on this patient review the chart, obt ain history , examining the patient, review chest xray, labs, talking to the nursing staff and respiratory therapy and work out plan of treatment un this critically ill patient. - Patient Problems (1) Acute respiratory failure Current Visit: Yes Status: Acute Plan to address problem: Patient is on mechanical ventilation assist control, rate 12, tidal volume 450,, FIO2 35%, PEEP 6. Albuterol/atrovent aerosol treatments. Continue apixaban Continue prevacid. (2) COPD exacerbation Current Visit: No Status: Acute Plan to address problem: Patient is on mechanical ventilation assist control, rate 12, tidal volume 450,, FIO2 35%, PEEP 6. Albuterol/atrovent aerosol treatments. Continue apixaban Continue Prevacid (3) Bilateral pneumonia Current Visit: Yes Status: Acute Plan to address problem: Chest xray 03/01/20 Essentially unchanged airspace disease when compared to 02/18/2020. Patient afebrile. No leukocytosis. (4) CHF exacerbation Current Visit: Yes Status: Acute Plan to address problem: Management as per cardiology. (5) Cardiomyopathy Current Visit: Yes Status: Acute Plan to address problem: Management as per cardiology. (6) Pancreatic lesion Current Visit: Yes Status: Acute Plan to address problem: Management as per primary care. (7) Paroxysmal atrial fibrillation Current Visit: Yes Status: Acute Plan to address problem: Patient is on apixaban. Management as per cardiology. (8) CVA (cerebral vascular accident) Current Visit: No Status: Acute Qualifiers: Precerebral and cerebral artery: middle cerebral artery Laterality of affected vessel: right Plan to address problem: Management as per primary care. (9) Cocaine dependence Current Visit: No Status: Acute Plan to address problem: Management as per primary care. (10) HTN (hypertension) Current Visit: No Status: Acute Qualifiers: Hypertension type: essential hypertension Qualified Code(s): I10 - Essential (primary) hypertension Plan to address problem: Management as per primary care. (11) Nicotine dependence Current Visit: No Status: Acute Qualifiers: Nicotine product type: cigarettes Substance use status: in withdrawal Qualified Code(s): F17.213 - Nicotine dependence, cigarettes, with withdrawal Plan to address problem: Counseled to stop smoking. (12) Obesity hypoventilation syndrome Current Visit: No Status: Acute Plan to address problem: Pagient S/P tracheostomy and on mechanical ventilation. Subjective Date of service: 03/05/20 Principal diagnosis: Ac hypoxemic resp failure; Pneumonia; PUI COVID-19; CHF; COPD; HTN Interval history: Patient admitted for acute hypoxic respiratory failure, S/P tracheostomy.Patient sleeping. Resting on assist control mechanical ventilation, rate 12,Tidal volume 450, FIO2 35%, PEEP 6 and O2 saturation running 99%. ABG FIO2 30%. ABG pH 7.461 pH Units (7.350-7.450) H 02/20/20 06:45 POC ABG pCO2 34.8 mmHg (32.0-48.0) 02/11/20 14:11 ABG pCO2 47.8 mm Hg 02/20/20 06:45 POC ABG pO2 77.7 mmHg (83-108) L 02/11/20 14:11 ABG pO2 88.7 mm Hg (80.0-90.0) 02/20/20 06:45 POC ABG HCO3 26.7 02/11/20 14:11 ABG O2 Saturation 97.2 % (95.0-99.0) 02/20/20 06:45 Patient afebrile. No leukocytosis. Chest xray done 03/01/20 reported Essentially unchanged airspace disease when compared to 02/18/2020. Patient presently not on any antibiotics. Patient is on Apixaban and prevacid. Objective Vital Signs - 12hr 03/05/20 03/05/20 03/05/20 10:00 10:41 11:00 Temperature Pulse Rate 119 H 142 H 123 H Pulse Rate [ From Monitor] Respiratory 18 27 H Rate Blood Pressure 110/80 110/80 114/76 O2 Sat by Pulse 99 100 99 Oximetry O2 Sat by Pulse Oximetry [ Assessment] 03/05/20 03/05/20 03/05/20 12:00 13:00 14:00 Temperature 97.9 F Pulse Rate 113 H 137 H 142 H Pulse Rate [ 108 H From Monitor] Respiratory 19 30 H 31 H Rate Blood Pressure 105/72 105/72 119/93 O2 Sat by Pulse 99 100 99 Oximetry O2 Sat by Pulse Oximetry [ Assessment] 03/05/20 03/05/20 03/05/20 15:00 15:55 16:00 Temperature 97.9 F Pulse Rate 107 H 116 H 105 H Pulse Rate [ 107 H From Monitor] Respiratory 23 22 Rate Blood Pressure 100/75 100/75 105/78 O2 Sat by Pulse 99 99 99 Oximetry O2 Sat by Pulse Oximetry [ Assessment] 03/05/20 03/05/20 03/05/20 16:36 17:00 18:00 Temperature Pulse Rate 119 H 107 H 103 H Pulse Rate [ From Monitor] Respiratory 21 16 Rate Blood Pressure 108/78 107/79 114/71 O2 Sat by Pulse 99 99 Oximetry O2 Sat by Pulse Oximetry [ Assessment] 03/05/20 03/05/20 03/05/20 19:00 19:36 20:00 Temperature 97.7 F Pulse Rate 120 H 107 H 123 H Pulse Rate [ From Monitor] Respiratory 26 H 29 H Rate Blood Pressure 122/94 123/88 O2 Sat by Pulse 99 99 Oximetry O2 Sat by Pulse Oximetry [ Assessment] 03/05/20 03/05/20 03/05/20 20:11 21:00 21:01 Temperature Pulse Rate 131 H 124 H 122 H Pulse Rate [ From Monitor] Respiratory 28 H Rate Blood Pressure 123/88 128/78 128/78 O2 Sat by Pulse 98 98 Oximetry O2 Sat by Pulse 98 Oximetry [ Assessment] Constitutional: no acute distress, asleep, other (Patient is resting on mechanical ventilation, awake and makes needs know by mouthing words and phonating around trach) Eyes: non-icteric ENT: oropharynx moist, other (+ midline tracheostomy) Neck: supple, no JVD Effort: mildly labored Ascultation: Bilateral: diminished breath sounds, rhonchi (scant), other (mild tracheal secretions ) Percussion: Bilateral: not dull Cardiovascular: irregular rhythm Gastrointestinal: normoactive bowel sounds, soft, non-tender, non-distended, other (protuberant; PEG in place) Integumentary: normal Extremities: no cyanosis, pulses normal, no ischemia or petechiae, edema (bilateral lower extemities) Neurologic: non-focal exam (moves extremities), pupils equal and round, other ( Patient sleeping.) Psychiatric: mood appropriate, anxious, other CBC and BMP: 03/04/20 20:38 03/04/20 20:38 ABG, PT/INR, D-dimer: ABG ABG pH 7.461 pH Units (7.350-7.450) H 02/20/20 06:45 POC ABG pCO2 34.8 mmHg (32.0-48.0) 02/11/20 14:11 ABG pCO2 47.8 mm Hg 02/20/20 06:45 POC ABG pO2 77.7 mmHg (83-108) L 02/11/20 14:11 ABG pO2 88.7 mm Hg (80.0-90.0) 02/20/20 06:45 POC ABG HCO3 26.7 02/11/20 14:11 ABG O2 Saturation 97.2 % (95.0-99.0) 02/20/20 06:45 PT/INR, D-dimer PT 27.0 Sec. (12.2-14.9) H 02/07/20 15:03 INR 2.46 (0.87-1.13) H 02/07/20 15:03 Abnormal lab findings: Abnormal Labs 11/24/19 11/24/19 11/24/19 02:53 02:53 03:45 WBC 14.3 H RBC Hgb Hct MCHC RDW 17.2 H MCV MCH Lymph % (Auto) Bennett % (Auto) Bennett # Eos # Lymph # (Auto) Bennett # (Auto) Eos # (Auto) Seg Neutrophils % Seg Neuts % (Manual) Baso # (Auto) Lymphocytes % (Manual) Monocytes % (Manual) Eosinophils % (Manual) Basophils % (Manual) Seg Neutrophils # Seg Neutrophils # Man 8.3 H Lymphocytes # (Manual) Monocytes # (Manual) 0.9 H Eosinophils # (Manual) Nucleated RBC % Basophils # (Manual) PT INR APTT Heparin Anti-Xa Level ABG pH 7.313 L POC ABG pO2 ABG pO2 102.8 H ABG HCO3 ABG O2 Saturation ABG Base Excess -2.9 L POC ABG pCO2 ABG Hemoglobin ABG Oxyhemoglobin ABG Chloride ABG Glucose Oxyhemoglobin 93.9 L Sodium Potassium Chloride Carbon Dioxide BUN Creatinine Glucose 195 H POC Glucose Lactic Acid Calcium Phosphorus Magnesium AST ALT Lactate Dehydrogenase Total Bilirubin Direct Bilirubin CK-MB (CK-2) 4.3 H C-Reactive Protein NT-Pro-B Natriuret Pep 1181 H Total Protein Albumin Arterial Blood Glucose Urine WBC (Auto) Urine Creatinine 11/24/19 11/24/19 11/24/19 04:53 04:53 10:37 WBC RBC Hgb Hct MCHC RDW MCV MCH Lymph % (Auto) Bennett % (Auto) Bennett # Eos # Lymph # (Auto) Bennett # (Auto) Eos # (Auto) Seg Neutrophils % Seg Neuts % (Manual) Baso # (Auto) Lymphocytes % (Manual) Monocytes % (Manual) Eosinophils % (Manual) Basophils % (Manual) Seg Neutrophils # Seg Neutrophils # Man Lymphocytes # (Manual) Monocytes # (Manual) Eosinophils # (Manual) Nucleated RBC % Basophils # (Manual) PT INR APTT Heparin Anti-Xa Level ABG pH POC ABG pO2 ABG pO2 ABG HCO3 ABG O2 Saturation ABG Base Excess POC ABG pCO2 ABG Hemoglobin ABG Oxyhemoglobin ABG Chloride ABG Glucose Oxyhemoglobin Sodium Potassium Chloride Carbon Dioxide BUN Creatinine Glucose 162 H POC Glucose Lactic Acid 2.40 H* 2.50 H* Calcium Phosphorus Magnesium AST ALT Lactate Dehydrogenase 240 H Total Bilirubin Direct Bilirubin CK-MB (CK-2) C-Reactive Protein NT-Pro-B Natriuret Pep Total Protein Albumin Arterial Blood Glucose Urine WBC (Auto) Urine Creatinine 11/24/19 11/24/19 11/24/19 12:21 14:50 19:54 WBC RBC Hgb Hct MCHC RDW MCV MCH Lymph % (Auto) Bennett % (Auto) Bennett # Eos # Lymph # (Auto) Bennett # (Auto) Eos # (Auto) Seg Neutrophils % Seg Neuts % (Manual) Baso # (Auto) Lymphocytes % (Manual) Monocytes % (Manual) Eosinophils % (Manual) Basophils % (Manual) Seg Neutrophils # Seg Neutrophils # Man Lymphocytes # (Manual) Monocytes # (Manual) Eosinophils # (Manual) Nucleated RBC % Basophils # (Manual) PT INR APTT Heparin Anti-Xa Level ABG pH POC ABG pO2 ABG pO2 ABG HCO3 ABG O2 Saturation ABG Base Excess POC ABG pCO2 ABG Hemoglobin ABG Oxyhemoglobin ABG Chloride ABG Glucose Oxyhemoglobin Sodium Potassium Chloride Carbon Dioxide BUN Creatinine Glucose POC Glucose 145 H 143 H 124 H Lactic Acid Calcium Phosphorus Magnesium AST ALT Lactate Dehydrogenase Total Bilirubin Direct Bilirubin CK-MB (CK-2) C-Reactive Protein NT-Pro-B Natriuret Pep Total Protein Albumin Arterial Blood Glucose Urine WBC (Auto) Urine Creatinine 11/25/19 11/25/19 11/25/19 00:18 03:18 05:11 WBC 13.7 H RBC Hgb Hct MCHC RDW 17.1 H MCV MCH Lymph % (Auto) 10.8 L Bennett % (Auto) 8.7 H Bennett # 1.2 H Eos # Lymph # (Auto) Bennett # (Auto) Eos # (Auto) Seg Neutrophils % 80.2 H Seg Neuts % (Manual) Baso # (Auto) Lymphocytes % (Manual) Monocytes % (Manual) Eosinophils % (Manual) Basophils % (Manual) Seg Neutrophils # 11.0 H Seg Neutrophils # Man Lymphocytes # (Manual) Monocytes # (Manual) Eosinophils # (Manual) Nucleated RBC % Basophils # (Manual) PT INR APTT Heparin Anti-Xa Level ABG pH 7.333 L POC ABG pO2 ABG pO2 61.2 L ABG HCO3 ABG O2 Saturation 90.2 L ABG Base Excess POC ABG pCO2 ABG Hemoglobin 13.7 L ABG Oxyhemoglobin ABG Chloride ABG Glucose Oxyhemoglobin 88.2 L Sodium Potassium Chloride Carbon Dioxide BUN Creatinine Glucose POC Glucose 109 H Lactic Acid Calcium Phosphorus Magnesium AST ALT Lactate Dehydrogenase Total Bilirubin Direct Bilirubin CK-MB (CK-2) C-Reactive Protein NT-Pro-B Natriuret Pep Total Protein Albumin Arterial Blood Glucose Urine WBC (Auto) Urine Creatinine 11/25/19 11/25/19 11/26/19 05:11 11:40 03:12 WBC RBC Hgb Hct MCHC RDW MCV MCH Lymph % (Auto) Bennett % (Auto) Bennett # Eos # Lymph # (Auto) Bennett # (Auto) Eos # (Auto) Seg Neutrophils % Seg Neuts % (Manual) Baso # (Auto) Lymphocytes % (Manual) Monocytes % (Manual) Eosinophils % (Manual) Basophils % (Manual) Seg Neutrophils # Seg Neutrophils # Man Lymphocytes # (Manual) Monocytes # (Manual) Eosinophils # (Manual) Nucleated RBC % Basophils # (Manual) PT INR APTT Heparin Anti-Xa Level ABG pH POC ABG pO2 ABG pO2 155.1 H ABG HCO3 27.8 H ABG O2 Saturation ABG Base Excess POC ABG pCO2 ABG Hemoglobin 12.2 L ABG Oxyhemoglobin ABG Chloride ABG Glucose Oxyhemoglobin Sodium Potassium Chloride Carbon Dioxide BUN 23 H Creatinine Glucose 110 H POC Glucose 108 H Lactic Acid Calcium Phosphorus Magnesium AST ALT Lactate Dehydrogenase Total Bilirubin Direct Bilirubin CK-MB (CK-2) C-Reactive Protein NT-Pro-B Natriuret Pep Total Protein Albumin Arterial Blood Glucose Urine WBC (Auto) Urine Creatinine 11/26/19 11/26/19 11/26/19 06:17 10:43 10:43 WBC 11.4 H RBC Hgb Hct MCHC RDW 17.1 H MCV MCH Lymph % (Auto) Bennett % (Auto) Bennett # Eos # Lymph # (Auto) Bennett # (Auto) Eos # (Auto) Seg Neutrophils % Seg Neuts % (Manual) Baso # (Auto) Lymphocytes % (Manual) Monocytes % (Manual) Eosinophils % (Manual) Basophils % (Manual) Seg Neutrophils # Seg Neutrophils # Man Lymphocytes # (Manual) Monocytes # (Manual) Eosinophils # (Manual) Nucleated RBC % Basophils # (Manual) PT INR APTT Heparin Anti-Xa Level ABG pH POC ABG pO2 ABG pO2 ABG HCO3 ABG O2 Saturation ABG Base Excess POC ABG pCO2 ABG Hemoglobin ABG Oxyhemoglobin ABG Chloride ABG Glucose Oxyhemoglobin Sodium Potassium Chloride Carbon Dioxide BUN 29 H Creatinine Glucose POC Glucose 107 H Lactic Acid Calcium Phosphorus Magnesium AST ALT Lactate Dehydrogenase Total Bilirubin Direct Bilirubin CK-MB (CK-2) C-Reactive Protein NT-Pro-B Natriuret Pep Total Protein Albumin Arterial Blood Glucose Urine WBC (Auto) Urine Creatinine 11/26/19 11/27/19 11/27/19 17:11 01:53 04:11 WBC RBC Hgb Hct MCHC RDW MCV MCH Lymph % (Auto) Bennett % (Auto) Bennett # Eos # Lymph # (Auto) Bennett # (Auto) Eos # (Auto) Seg Neutrophils % Seg Neuts % (Manual) Baso # (Auto) Lymphocytes % (Manual) Monocytes % (Manual) Eosinophils % (Manual) Basophils % (Manual) Seg Neutrophils # Seg Neutrophils # Man Lymphocytes # (Manual) Monocytes # (Manual) Eosinophils # (Manual) Nucleated RBC % Basophils # (Manual) PT INR APTT Heparin Anti-Xa Level ABG pH POC ABG pO2 ABG pO2 ABG HCO3 29.2 H ABG O2 Saturation ABG Base Excess 3.4 H POC ABG pCO2 ABG Hemoglobin 13.3 L ABG Oxyhemoglobin ABG Chloride ABG Glucose Oxyhemoglobin 94.5 L Sodium Potassium Chloride Carbon Dioxide BUN Creatinine Glucose POC Glucose 113 H 108 H Lactic Acid Calcium Phosphorus Magnesium AST ALT Lactate Dehydrogenase Total Bilirubin Direct Bilirubin CK-MB (CK-2) C-Reactive Protein NT-Pro-B Natriuret Pep Total Protein Albumin Arterial Blood Glucose Urine WBC (Auto) Urine Creatinine 11/27/19 11/28/19 11/28/19 05:27 05:00 05:25 WBC RBC Hgb Hct MCHC RDW MCV MCH Lymph % (Auto) Bennett % (Auto) Bennett # Eos # Lymph # (Auto) Bennett # (Auto) Eos # (Auto) Seg Neutrophils % Seg Neuts % (Manual) Baso # (Auto) Lymphocytes % (Manual) Monocytes % (Manual) Eosinophils % (Manual) Basophils % (Manual) Seg Neutrophils # Seg Neutrophils # Man Lymphocytes # (Manual) Monocytes # (Manual) Eosinophils # (Manual) Nucleated RBC % Basophils # (Manual) PT INR APTT Heparin Anti-Xa Level ABG pH POC ABG pO2 68.1 L ABG pO2 ABG HCO3 ABG O2 Saturation ABG Base Excess POC ABG pCO2 ABG Hemoglobin ABG Oxyhemoglobin 91.2 L ABG Chloride ABG Glucose Oxyhemoglobin Sodium Potassium Chloride Carbon Dioxide BUN Creatinine Glucose POC Glucose 111 H 110 H Lactic Acid Calcium Phosphorus Magnesium AST ALT Lactate Dehydrogenase Total Bilirubin Direct Bilirubin CK-MB (CK-2) C-Reactive Protein NT-Pro-B Natriuret Pep Total Protein Albumin Arterial Blood Glucose Urine WBC (Auto) Urine Creatinine 11/28/19 11/28/19 11/28/19 12:08 13:47 13:47 WBC 11.3 H RBC Hgb Hct MCHC RDW 16.1 H MCV MCH Lymph % (Auto) Bennett % (Auto) 9.9 H Bennett # 1.1 H Eos # Lymph # (Auto) Bennett # (Auto) Eos # (Auto) Seg Neutrophils % 71.4 H Seg Neuts % (Manual) Baso # (Auto) Lymphocytes % (Manual) Monocytes % (Manual) Eosinophils % (Manual) Basophils % (Manual) Seg Neutrophils # 8.1 H Seg Neutrophils # Man Lymphocytes # (Manual) Monocytes # (Manual) Eosinophils # (Manual) Nucleated RBC % Basophils # (Manual) PT INR APTT Heparin Anti-Xa Level ABG pH POC ABG pO2 ABG pO2 ABG HCO3 ABG O2 Saturation ABG Base Excess POC ABG pCO2 ABG Hemoglobin ABG Oxyhemoglobin ABG Chloride ABG Glucose Oxyhemoglobin Sodium Potassium Chloride Carbon Dioxide BUN 23 H Creatinine Glucose 123 H POC Glucose 112 H Lactic Acid Calcium Phosphorus Magnesium AST ALT Lactate Dehydrogenase Total Bilirubin Direct Bilirubin CK-MB (CK-2) C-Reactive Protein NT-Pro-B Natriuret Pep Total Protein Albumin 3.7 L Arterial Blood Glucose Urine WBC (Auto) Urine Creatinine 11/28/19 11/29/19 11/29/19 17:26 03:55 17:04 WBC RBC Hgb Hct MCHC RDW MCV MCH Lymph % (Auto) Bennett % (Auto) Bennett # Eos # Lymph # (Auto) Bennett # (Auto) Eos # (Auto) Seg Neutrophils % Seg Neuts % (Manual) Baso # (Auto) Lymphocytes % (Manual) Monocytes % (Manual) Eosinophils % (Manual) Basophils % (Manual) Seg Neutrophils # Seg Neutrophils # Man Lymphocytes # (Manual) Monocytes # (Manual) Eosinophils # (Manual) Nucleated RBC % Basophils # (Manual) PT INR APTT Heparin Anti-Xa Level ABG pH POC ABG pO2 ABG pO2 65.7 L ABG HCO3 28.3 H ABG O2 Saturation 93.9 L ABG Base Excess 3.6 H POC ABG pCO2 ABG Hemoglobin 13.3 L ABG Oxyhemoglobin ABG Chloride ABG Glucose Oxyhemoglobin 91.5 L Sodium Potassium Chloride Carbon Dioxide BUN Creatinine Glucose POC Glucose 123 H 119 H Lactic Acid Calcium Phosphorus Magnesium AST ALT Lactate Dehydrogenase Total Bilirubin Direct Bilirubin CK-MB (CK-2) C-Reactive Protein NT-Pro-B Natriuret Pep Total Protein Albumin Arterial Blood Glucose Urine WBC (Auto) Urine Creatinine 11/30/19 11/30/19 11/30/19 04:17 04:17 04:56 WBC 13.4 H RBC Hgb Hct MCHC RDW 15.6 H MCV MCH Lymph % (Auto) Bennett % (Auto) Bennett # Eos # Lymph # (Auto) Bennett # (Auto) Eos # (Auto) Seg Neutrophils % Seg Neuts % (Manual) Baso # (Auto) Lymphocytes % (Manual) Monocytes % (Manual) Eosinophils % (Manual) Basophils % (Manual) Seg Neutrophils # Seg Neutrophils # Man Lymphocytes # (Manual) Monocytes # (Manual) Eosinophils # (Manual) Nucleated RBC % Basophils # (Manual) PT INR APTT Heparin Anti-Xa Level ABG pH POC ABG pO2 ABG pO2 56.3 L ABG HCO3 29.3 H ABG O2 Saturation 91.5 L ABG Base Excess 4.7 H POC ABG pCO2 ABG Hemoglobin 12.1 L ABG Oxyhemoglobin ABG Chloride ABG Glucose Oxyhemoglobin 89.2 L Sodium 147 H Potassium Chloride Carbon Dioxide BUN 30 H Creatinine Glucose 124 H POC Glucose Lactic Acid Calcium Phosphorus Magnesium AST ALT Lactate Dehydrogenase Total Bilirubin Direct Bilirubin CK-MB (CK-2) C-Reactive Protein NT-Pro-B Natriuret Pep Total Protein Albumin 3.8 L Arterial Blood Glucose Urine WBC (Auto) Urine Creatinine 11/30/19 11/30/19 11/30/19 05:51 11:54 18:17 WBC RBC Hgb Hct MCHC RDW MCV MCH Lymph % (Auto) Bennett % (Auto) Bennett # Eos # Lymph # (Auto) Bennett # (Auto) Eos # (Auto) Seg Neutrophils % Seg Neuts % (Manual) Baso # (Auto) Lymphocytes % (Manual) Monocytes % (Manual) Eosinophils % (Manual) Basophils % (Manual) Seg Neutrophils # Seg Neutrophils # Man Lymphocytes # (Manual) Monocytes # (Manual) Eosinophils # (Manual) Nucleated RBC % Basophils # (Manual) PT INR APTT Heparin Anti-Xa Level ABG pH POC ABG pO2 ABG pO2 ABG HCO3 ABG O2 Saturation ABG Base Excess POC ABG pCO2 ABG Hemoglobin ABG Oxyhemoglobin ABG Chloride ABG Glucose Oxyhemoglobin Sodium Potassium Chloride Carbon Dioxide BUN Creatinine Glucose POC Glucose 127 H 115 H 143 H Lactic Acid Calcium Phosphorus Magnesium AST ALT Lactate Dehydrogenase Total Bilirubin Direct Bilirubin CK-MB (CK-2) C-Reactive Protein NT-Pro-B Natriuret Pep Total Protein Albumin Arterial Blood Glucose Urine WBC (Auto) Urine Creatinine 12/01/19 12/01/19 12/01/19 01:18 05:22 12:16 WBC RBC Hgb Hct MCHC RDW MCV MCH Lymph % (Auto) Bennett % (Auto) Bennett # Eos # Lymph # (Auto) Bennett # (Auto) Eos # (Auto) Seg Neutrophils % Seg Neuts % (Manual) Baso # (Auto) Lymphocytes % (Manual) Monocytes % (Manual) Eosinophils % (Manual) Basophils % (Manual) Seg Neutrophils # Seg Neutrophils # Man Lymphocytes # (Manual) Monocytes # (Manual) Eosinophils # (Manual) Nucleated RBC % Basophils # (Manual) PT INR APTT Heparin Anti-Xa Level ABG pH POC ABG pO2 ABG pO2 ABG HCO3 ABG O2 Saturation ABG Base Excess POC ABG pCO2 ABG Hemoglobin ABG Oxyhemoglobin ABG Chloride ABG Glucose Oxyhemoglobin Sodium Potassium 3.5 L Chloride 107.8 H Carbon Dioxide BUN 37 H Creatinine Glucose 157 H POC Glucose 118 H 148 H Lactic Acid Calcium 8.2 L D Phosphorus Magnesium AST 48 H ALT 60 H Lactate Dehydrogenase 194 H Total Bilirubin Direct Bilirubin CK-MB (CK-2) C-Reactive Protein 8.50 H NT-Pro-B Natriuret Pep Total Protein 5.5 L Albumin 2.8 L Arterial Blood Glucose Urine WBC (Auto) Urine Creatinine 12/01/19 12/02/19 12/02/19 18:04 00:05 05:16 WBC 11.4 H RBC Hgb Hct MCHC RDW 15.9 H MCV MCH Lymph % (Auto) Bennett % (Auto) 9.9 H Bennett # 1.1 H Eos # Lymph # (Auto) Bennett # (Auto) Eos # (Auto) Seg Neutrophils % 70.3 H Seg Neuts % (Manual) Baso # (Auto) Lymphocytes % (Manual) Monocytes % (Manual) Eosinophils % (Manual) Basophils % (Manual) Seg Neutrophils # 8.0 H Seg Neutrophils # Man Lymphocytes # (Manual) Monocytes # (Manual) Eosinophils # (Manual) Nucleated RBC % Basophils # (Manual) PT INR APTT Heparin Anti-Xa Level ABG pH POC ABG pO2 ABG pO2 ABG HCO3 ABG O2 Saturation ABG Base Excess POC ABG pCO2 ABG Hemoglobin ABG Oxyhemoglobin ABG Chloride ABG Glucose Oxyhemoglobin Sodium Potassium Chloride Carbon Dioxide BUN Creatinine Glucose POC Glucose 143 H 107 H Lactic Acid Calcium Phosphorus Magnesium AST ALT Lactate Dehydrogenase Total Bilirubin Direct Bilirubin CK-MB (CK-2) C-Reactive Protein NT-Pro-B Natriuret Pep Total Protein Albumin Arterial Blood Glucose Urine WBC (Auto) Urine Creatinine 12/02/19 12/02/19 12/02/19 05:16 06:03 11:52 WBC RBC Hgb Hct MCHC RDW MCV MCH Lymph % (Auto) Bennett % (Auto) Bennett # Eos # Lymph # (Auto) Bennett # (Auto) Eos # (Auto) Seg Neutrophils % Seg Neuts % (Manual) Baso # (Auto) Lymphocytes % (Manual) Monocytes % (Manual) Eosinophils % (Manual) Basophils % (Manual) Seg Neutrophils # Seg Neutrophils # Man Lymphocytes # (Manual) Monocytes # (Manual) Eosinophils # (Manual) Nucleated RBC % Basophils # (Manual) PT INR APTT Heparin Anti-Xa Level ABG pH POC ABG pO2 ABG pO2 ABG HCO3 ABG O2 Saturation ABG Base Excess POC ABG pCO2 ABG Hemoglobin ABG Oxyhemoglobin ABG Chloride ABG Glucose Oxyhemoglobin Sodium 146 H Potassium Chloride Carbon Dioxide BUN 28 H Creatinine Glucose 123 H POC Glucose 110 H 152 H Lactic Acid Calcium Phosphorus Magnesium AST ALT Lactate Dehydrogenase Total Bilirubin Direct Bilirubin CK-MB (CK-2) C-Reactive Protein NT-Pro-B Natriuret Pep Total Protein Albumin Arterial Blood Glucose Urine WBC (Auto) Urine Creatinine 12/02/19 12/02/19 12/02/19 12:58 17:58 23:36 WBC RBC Hgb Hct MCHC RDW MCV MCH Lymph % (Auto) Bennett % (Auto) Bennett # Eos # Lymph # (Auto) Bennett # (Auto) Eos # (Auto) Seg Neutrophils % Seg Neuts % (Manual) Baso # (Auto) Lymphocytes % (Manual) Monocytes % (Manual) Eosinophils % (Manual) Basophils % (Manual) Seg Neutrophils # Seg Neutrophils # Man Lymphocytes # (Manual) Monocytes # (Manual) Eosinophils # (Manual) Nucleated RBC % Basophils # (Manual) PT INR APTT Heparin Anti-Xa Level ABG pH POC ABG pO2 78.1 L ABG pO2 ABG HCO3 ABG O2 Saturation ABG Base Excess POC ABG pCO2 ABG Hemoglobin ABG Oxyhemoglobin ABG Chloride ABG Glucose Oxyhemoglobin Sodium Potassium Chloride Carbon Dioxide BUN Creatinine Glucose POC Glucose 120 H 123 H Lactic Acid Calcium Phosphorus Magnesium AST ALT Lactate Dehydrogenase Total Bilirubin Direct Bilirubin CK-MB (CK-2) C-Reactive Protein NT-Pro-B Natriuret Pep Total Protein Albumin Arterial Blood Glucose Urine WBC (Auto) Urine Creatinine 12/03/19 12/03/19 12/03/19 06:03 06:14 11:46 WBC RBC Hgb Hct MCHC RDW MCV MCH Lymph % (Auto) Bennett % (Auto) Bennett # Eos # Lymph # (Auto) Bennett # (Auto) Eos # (Auto) Seg Neutrophils % Seg Neuts % (Manual) Baso # (Auto) Lymphocytes % (Manual) Monocytes % (Manual) Eosinophils % (Manual) Basophils % (Manual) Seg Neutrophils # Seg Neutrophils # Man Lymphocytes # (Manual) Monocytes # (Manual) Eosinophils # (Manual) Nucleated RBC % Basophils # (Manual) PT INR APTT Heparin Anti-Xa Level ABG pH POC ABG pO2 ABG pO2 ABG HCO3 ABG O2 Saturation ABG Base Excess POC ABG pCO2 ABG Hemoglobin ABG Oxyhemoglobin ABG Chloride ABG Glucose Oxyhemoglobin Sodium Potassium Chloride Carbon Dioxide BUN Creatinine Glucose POC Glucose 142 H 130 H Lactic Acid Calcium Phosphorus Magnesium AST ALT Lactate Dehydrogenase Total Bilirubin Direct Bilirubin CK-MB (CK-2) C-Reactive Protein NT-Pro-B Natriuret Pep Total Protein Albumin Arterial Blood Glucose Urine WBC (Auto) 8.0 H Urine Creatinine 12/03/19 12/03/19 12/04/19 15:50 17:39 00:04 WBC RBC Hgb Hct MCHC RDW MCV MCH Lymph % (Auto) Bennett % (Auto) Bennett # Eos # Lymph # (Auto) Bennett # (Auto) Eos # (Auto) Seg Neutrophils % Seg Neuts % (Manual) Baso # (Auto) Lymphocytes % (Manual) Monocytes % (Manual) Eosinophils % (Manual) Basophils % (Manual) Seg Neutrophils # Seg Neutrophils # Man Lymphocytes # (Manual) Monocytes # (Manual) Eosinophils # (Manual) Nucleated RBC % Basophils # (Manual) PT INR APTT Heparin Anti-Xa Level ABG pH POC ABG pO2 ABG pO2 ABG HCO3 ABG O2 Saturation ABG Base Excess POC ABG pCO2 ABG Hemoglobin ABG Oxyhemoglobin ABG Chloride ABG Glucose Oxyhemoglobin Sodium Potassium Chloride Carbon Dioxide BUN Creatinine Glucose POC Glucose 146 H 133 H Lactic Acid Calcium Phosphorus 2.40 L Magnesium AST ALT Lactate Dehydrogenase Total Bilirubin Direct Bilirubin CK-MB (CK-2) C-Reactive Protein NT-Pro-B Natriuret Pep Total Protein Albumin Arterial Blood Glucose Urine WBC (Auto) Urine Creatinine 12/04/19 12/04/19 12/04/19 03:58 03:58 05:22 WBC 12.5 H RBC Hgb 11.2 L Hct 35.2 L MCHC RDW 16.0 H MCV MCH Lymph % (Auto) Bennett % (Auto) 9.6 H Bennett # 1.2 H Eos # 0.5 H Lymph # (Auto) Bennett # (Auto) Eos # (Auto) Seg Neutrophils % Seg Neuts % (Manual) Baso # (Auto) Lymphocytes % (Manual) Monocytes % (Manual) Eosinophils % (Manual) Basophils % (Manual) Seg Neutrophils # 8.6 H Seg Neutrophils # Man Lymphocytes # (Manual) Monocytes # (Manual) Eosinophils # (Manual) Nucleated RBC % Basophils # (Manual) PT INR APTT Heparin Anti-Xa Level ABG pH POC ABG pO2 ABG pO2 ABG HCO3 ABG O2 Saturation ABG Base Excess POC ABG pCO2 ABG Hemoglobin ABG Oxyhemoglobin ABG Chloride ABG Glucose Oxyhemoglobin Sodium 146 H Potassium Chloride 108.6 H Carbon Dioxide BUN 30 H Creatinine 0.7 L Glucose 121 H POC Glucose 132 H Lactic Acid Calcium Phosphorus Magnesium AST ALT Lactate Dehydrogenase Total Bilirubin Direct Bilirubin CK-MB (CK-2) C-Reactive Protein NT-Pro-B Natriuret Pep Total Protein Albumin Arterial Blood Glucose Urine WBC (Auto) Urine Creatinine 12/04/19 12/04/19 12/05/19 13:26 18:43 00:19 WBC RBC Hgb Hct MCHC RDW MCV MCH Lymph % (Auto) Bennett % (Auto) Bennett # Eos # Lymph # (Auto) Bennett # (Auto) Eos # (Auto) Seg Neutrophils % Seg Neuts % (Manual) Baso # (Auto) Lymphocytes % (Manual) Monocytes % (Manual) Eosinophils % (Manual) Basophils % (Manual) Seg Neutrophils # Seg Neutrophils # Man Lymphocytes # (Manual) Monocytes # (Manual) Eosinophils # (Manual) Nucleated RBC % Basophils # (Manual) PT INR APTT Heparin Anti-Xa Level ABG pH POC ABG pO2 ABG pO2 ABG HCO3 ABG O2 Saturation ABG Base Excess POC ABG pCO2 ABG Hemoglobin ABG Oxyhemoglobin ABG Chloride ABG Glucose Oxyhemoglobin Sodium Potassium Chloride Carbon Dioxide BUN Creatinine Glucose POC Glucose 185 H 156 H 150 H Lactic Acid Calcium Phosphorus Magnesium AST ALT Lactate Dehydrogenase Total Bilirubin Direct Bilirubin CK-MB (CK-2) C-Reactive Protein NT-Pro-B Natriuret Pep Total Protein Albumin Arterial Blood Glucose Urine WBC (Auto) Urine Creatinine 12/05/19 12/05/19 12/05/19 03:37 03:37 05:14 WBC 16.3 H RBC Hgb 11.4 L Hct MCHC RDW 15.6 H MCV MCH Lymph % (Auto) 9.9 L Bennett % (Auto) 9.7 H Bennett # 1.6 H Eos # Lymph # (Auto) Bennett # (Auto) Eos # (Auto) Seg Neutrophils % 78.0 H Seg Neuts % (Manual) Baso # (Auto) Lymphocytes % (Manual) Monocytes % (Manual) Eosinophils % (Manual) Basophils % (Manual) Seg Neutrophils # 12.7 H Seg Neutrophils # Man Lymphocytes # (Manual) Monocytes # (Manual) Eosinophils # (Manual) Nucleated RBC % Basophils # (Manual) PT INR APTT Heparin Anti-Xa Level ABG pH POC ABG pO2 ABG pO2 ABG HCO3 ABG O2 Saturation ABG Base Excess POC ABG pCO2 ABG Hemoglobin ABG Oxyhemoglobin ABG Chloride ABG Glucose Oxyhemoglobin Sodium 146 H Potassium Chloride 107.2 H Carbon Dioxide BUN 27 H Creatinine 0.7 L Glucose 171 H POC Glucose 168 H Lactic Acid Calcium Phosphorus Magnesium AST ALT Lactate Dehydrogenase Total Bilirubin Direct Bilirubin CK-MB (CK-2) C-Reactive Protein NT-Pro-B Natriuret Pep Total Protein Albumin Arterial Blood Glucose Urine WBC (Auto) Urine Creatinine 12/05/19 12/05/19 12/05/19 12:31 18:10 23:58 WBC RBC Hgb Hct MCHC RDW MCV MCH Lymph % (Auto) Bennett % (Auto) Bennett # Eos # Lymph # (Auto) Bennett # (Auto) Eos # (Auto) Seg Neutrophils % Seg Neuts % (Manual) Baso # (Auto) Lymphocytes % (Manual) Monocytes % (Manual) Eosinophils % (Manual) Basophils % (Manual) Seg Neutrophils # Seg Neutrophils # Man Lymphocytes # (Manual) Monocytes # (Manual) Eosinophils # (Manual) Nucleated RBC % Basophils # (Manual) PT INR APTT Heparin Anti-Xa Level ABG pH POC ABG pO2 ABG pO2 ABG HCO3 ABG O2 Saturation ABG Base Excess POC ABG pCO2 ABG Hemoglobin ABG Oxyhemoglobin ABG Chloride ABG Glucose Oxyhemoglobin Sodium Potassium Chloride Carbon Dioxide BUN Creatinine Glucose POC Glucose 159 H 198 H 115 H Lactic Acid Calcium Phosphorus Magnesium AST ALT Lactate Dehydrogenase Total Bilirubin Direct Bilirubin CK-MB (CK-2) C-Reactive Protein NT-Pro-B Natriuret Pep Total Protein Albumin Arterial Blood Glucose Urine WBC (Auto) Urine Creatinine 12/06/19 12/06/19 12/06/19 05:24 05:24 05:25 WBC 14.9 H RBC Hgb 10.8 L Hct 34.0 L MCHC RDW 15.6 H MCV MCH Lymph % (Auto) 10.7 L Bennett % (Auto) 8.3 H Bennett # 1.2 H Eos # Lymph # (Auto) Bennett # (Auto) Eos # (Auto) Seg Neutrophils % 78.7 H Seg Neuts % (Manual) Baso # (Auto) Lymphocytes % (Manual) Monocytes % (Manual) Eosinophils % (Manual) Basophils % (Manual) Seg Neutrophils # 11.7 H Seg Neutrophils # Man Lymphocytes # (Manual) Monocytes # (Manual) Eosinophils # (Manual) Nucleated RBC % Basophils # (Manual) PT INR APTT Heparin Anti-Xa Level ABG pH POC ABG pO2 ABG pO2 ABG HCO3 ABG O2 Saturation ABG Base Excess POC ABG pCO2 ABG Hemoglobin ABG Oxyhemoglobin ABG Chloride ABG Glucose Oxyhemoglobin Sodium 148 H Potassium 5.1 H Chloride 107.6 H Carbon Dioxide BUN 27 H Creatinine 0.7 L Glucose 155 H POC Glucose 157 H Lactic Acid Calcium Phosphorus Magnesium AST ALT Lactate Dehydrogenase Total Bilirubin Direct Bilirubin CK-MB (CK-2) C-Reactive Protein NT-Pro-B Natriuret Pep Total Protein Albumin Arterial Blood Glucose Urine WBC (Auto) Urine Creatinine 09/14/20 09/14/20 09/14/20 00:13 05:34 11:33 WBC RBC Hgb Hct MCHC RDW MCV MCH Lymph % (Auto) Bennett % (Auto) Bennett # Eos # Lymph # (Auto) Bennett # (Auto) Eos # (Auto) Seg Neutrophils % Seg Neuts % (Manual) Baso # (Auto) Lymphocytes % (Manual) Monocytes % (Manual) Eosinophils % (Manual) Basophils % (Manual) Seg Neutrophils # Seg Neutrophils # Man Lymphocytes # (Manual) Monocytes # (Manual) Eosinophils # (Manual) Nucleated RBC % Basophils # (Manual) PT INR APTT Heparin Anti-Xa Level ABG pH POC ABG pO2 ABG pO2 ABG HCO3 ABG O2 Saturation ABG Base Excess POC ABG pCO2 ABG Hemoglobin ABG Oxyhemoglobin ABG Chloride ABG Glucose Oxyhemoglobin Sodium Potassium Chloride Carbon Dioxide BUN Creatinine Glucose POC Glucose 142 H 111 H 169 H Lactic Acid Calcium Phosphorus Magnesium AST ALT Lactate Dehydrogenase Total Bilirubin Direct Bilirubin CK-MB (CK-2) C-Reactive Protein NT-Pro-B Natriuret Pep Total Protein Albumin Arterial Blood Glucose Urine WBC (Auto) Urine Creatinine 12/07/19 12/07/19 12/07/19 12:41 13:25 18:19 WBC 12.4 H RBC 3.53 L Hgb 10.2 L Hct 32.1 L MCHC RDW 15.3 H MCV MCH Lymph % (Auto) 10.6 L Bennett % (Auto) 7.8 H Bennett # 1.0 H Eos # Lymph # (Auto) Bennett # (Auto) Eos # (Auto) Seg Neutrophils % 77.6 H Seg Neuts % (Manual) Baso # (Auto) Lymphocytes % (Manual) Monocytes % (Manual) Eosinophils % (Manual) Basophils % (Manual) Seg Neutrophils # 9.6 H Seg Neutrophils # Man Lymphocytes # (Manual) Monocytes # (Manual) Eosinophils # (Manual) Nucleated RBC % Basophils # (Manual) PT INR APTT Heparin Anti-Xa Level ABG pH POC ABG pO2 ABG pO2 ABG HCO3 ABG O2 Saturation ABG Base Excess POC ABG pCO2 ABG Hemoglobin ABG Oxyhemoglobin ABG Chloride ABG Glucose Oxyhemoglobin Sodium 149 H Potassium Chloride 108.4 H Carbon Dioxide BUN 26 H Creatinine 0.6 L Glucose 149 H POC Glucose 164 H Lactic Acid Calcium Phosphorus Magnesium 2.60 H AST 121 H ALT 145 H Lactate Dehydrogenase Total Bilirubin Direct Bilirubin CK-MB (CK-2) C-Reactive Protein NT-Pro-B Natriuret Pep Total Protein Albumin 2.6 L Arterial Blood Glucose Urine WBC (Auto) Urine Creatinine 12/07/19 12/08/19 12/08/19 22:25 00:02 03:55 WBC 13.3 H RBC 3.40 L Hgb 9.7 L Hct 30.8 L MCHC 31 L RDW 15.5 H MCV MCH Lymph % (Auto) Bennett % (Auto) 8.1 H Bennett # 1.1 H Eos # Lymph # (Auto) Bennett # (Auto) Eos # (Auto) Seg Neutrophils % 73.0 H Seg Neuts % (Manual) Baso # (Auto) Lymphocytes % (Manual) Monocytes % (Manual) Eosinophils % (Manual) Basophils % (Manual) Seg Neutrophils # 9.7 H Seg Neutrophils # Man Lymphocytes # (Manual) Monocytes # (Manual) Eosinophils # (Manual) Nucleated RBC % Basophils # (Manual) PT INR APTT Heparin Anti-Xa Level 0.12 L ABG pH POC ABG pO2 ABG pO2 ABG HCO3 ABG O2 Saturation ABG Base Excess POC ABG pCO2 ABG Hemoglobin ABG Oxyhemoglobin ABG Chloride ABG Glucose Oxyhemoglobin Sodium Potassium Chloride Carbon Dioxide BUN Creatinine Glucose POC Glucose 151 H Lactic Acid Calcium Phosphorus Magnesium AST ALT Lactate Dehydrogenase Total Bilirubin Direct Bilirubin CK-MB (CK-2) C-Reactive Protein NT-Pro-B Natriuret Pep Total Protein Albumin Arterial Blood Glucose Urine WBC (Auto) Urine Creatinine 12/08/19 12/08/19 12/08/19 03:55 05:21 06:01 WBC RBC Hgb Hct MCHC RDW MCV MCH Lymph % (Auto) Bennett % (Auto) Bennett # Eos # Lymph # (Auto) Bennett # (Auto) Eos # (Auto) Seg Neutrophils % Seg Neuts % (Manual) Baso # (Auto) Lymphocytes % (Manual) Monocytes % (Manual) Eosinophils % (Manual) Basophils % (Manual) Seg Neutrophils # Seg Neutrophils # Man Lymphocytes # (Manual) Monocytes # (Manual) Eosinophils # (Manual) Nucleated RBC % Basophils # (Manual) PT INR APTT Heparin Anti-Xa Level 0.20 L ABG pH POC ABG pO2 ABG pO2 ABG HCO3 ABG O2 Saturation ABG Base Excess POC ABG pCO2 ABG Hemoglobin ABG Oxyhemoglobin ABG Chloride ABG Glucose Oxyhemoglobin Sodium 149 H Potassium Chloride 108.0 H Carbon Dioxide BUN 28 H Creatinine 0.6 L Glucose 144 H POC Glucose 143 H Lactic Acid Calcium Phosphorus Magnesium AST 98 H ALT 145 H Lactate Dehydrogenase Total Bilirubin Direct Bilirubin CK-MB (CK-2) C-Reactive Protein NT-Pro-B Natriuret Pep Total Protein 6.0 L Albumin 2.4 L Arterial Blood Glucose Urine WBC (Auto) Urine Creatinine 12/08/19 12/08/19 12/08/19 12:08 18:11 23:53 WBC RBC Hgb Hct MCHC RDW MCV MCH Lymph % (Auto) Bennett % (Auto) Bennett # Eos # Lymph # (Auto) Bennett # (Auto) Eos # (Auto) Seg Neutrophils % Seg Neuts % (Manual) Baso # (Auto) Lymphocytes % (Manual) Monocytes % (Manual) Eosinophils % (Manual) Basophils % (Manual) Seg Neutrophils # Seg Neutrophils # Man Lymphocytes # (Manual) Monocytes # (Manual) Eosinophils # (Manual) Nucleated RBC % Basophils # (Manual) PT INR APTT Heparin Anti-Xa Level ABG pH POC ABG pO2 ABG pO2 ABG HCO3 ABG O2 Saturation ABG Base Excess POC ABG pCO2 ABG Hemoglobin ABG Oxyhemoglobin ABG Chloride ABG Glucose Oxyhemoglobin Sodium Potassium Chloride Carbon Dioxide BUN Creatinine Glucose POC Glucose 172 H 122 H 162 H Lactic Acid Calcium Phosphorus Magnesium AST ALT Lactate Dehydrogenase Total Bilirubin Direct Bilirubin CK-MB (CK-2) C-Reactive Protein NT-Pro-B Natriuret Pep Total Protein Albumin Arterial Blood Glucose Urine WBC (Auto) Urine Creatinine 12/09/19 12/09/19 12/09/19 04:03 04:03 05:53 WBC RBC Hgb 9.1 L Hct 28.9 L MCHC RDW MCV MCH Lymph % (Auto) Bennett % (Auto) Bennett # Eos # Lymph # (Auto) Bennett # (Auto) Eos # (Auto) Seg Neutrophils % Seg Neuts % (Manual) Baso # (Auto) Lymphocytes % (Manual) Monocytes % (Manual) Eosinophils % (Manual) Basophils % (Manual) Seg Neutrophils # Seg Neutrophils # Man Lymphocytes # (Manual) Monocytes # (Manual) Eosinophils # (Manual) Nucleated RBC % Basophils # (Manual) PT INR APTT Heparin Anti-Xa Level 0.15 L ABG pH POC ABG pO2 ABG pO2 ABG HCO3 ABG O2 Saturation ABG Base Excess POC ABG pCO2 ABG Hemoglobin ABG Oxyhemoglobin ABG Chloride ABG Glucose Oxyhemoglobin Sodium Potassium Chloride Carbon Dioxide BUN Creatinine Glucose POC Glucose 124 H Lactic Acid Calcium Phosphorus Magnesium AST ALT Lactate Dehydrogenase Total Bilirubin Direct Bilirubin CK-MB (CK-2) C-Reactive Protein NT-Pro-B Natriuret Pep Total Protein Albumin Arterial Blood Glucose Urine WBC (Auto) Urine Creatinine 12/09/19 12/09/19 12/10/19 09:43 12:41 00:13 WBC RBC Hgb Hct MCHC RDW MCV MCH Lymph % (Auto) Bennett % (Auto) Bennett # Eos # Lymph # (Auto) Bennett # (Auto) Eos # (Auto) Seg Neutrophils % Seg Neuts % (Manual) Baso # (Auto) Lymphocytes % (Manual) Monocytes % (Manual) Eosinophils % (Manual) Basophils % (Manual) Seg Neutrophils # Seg Neutrophils # Man Lymphocytes # (Manual) Monocytes # (Manual) Eosinophils # (Manual) Nucleated RBC % Basophils # (Manual) PT INR APTT Heparin Anti-Xa Level ABG pH POC ABG pO2 ABG pO2 ABG HCO3 ABG O2 Saturation ABG Base Excess POC ABG pCO2 ABG Hemoglobin ABG Oxyhemoglobin ABG Chloride ABG Glucose Oxyhemoglobin Sodium Potassium Chloride Carbon Dioxide BUN 25 H Creatinine 0.6 L Glucose 131 H POC Glucose 109 H 120 H Lactic Acid Calcium Phosphorus Magnesium AST ALT Lactate Dehydrogenase Total Bilirubin Direct Bilirubin CK-MB (CK-2) C-Reactive Protein NT-Pro-B Natriuret Pep Total Protein Albumin Arterial Blood Glucose Urine WBC (Auto) Urine Creatinine 12/10/19 12/10/19 12/10/19 04:14 04:14 12:00 WBC 13.3 H RBC 3.34 L Hgb 9.6 L Hct 30.4 L MCHC RDW 15.4 H MCV MCH Lymph % (Auto) Bennett % (Auto) Bennett # Eos # Lymph # (Auto) Bennett # (Auto) Eos # (Auto) Seg Neutrophils % Seg Neuts % (Manual) 75.0 H Baso # (Auto) Lymphocytes % (Manual) 13.0 L Monocytes % (Manual) 8.0 H Eosinophils % (Manual) Basophils % (Manual) 2.0 H Seg Neutrophils # Seg Neutrophils # Man 10.0 H Lymphocytes # (Manual) Monocytes # (Manual) 1.1 H Eosinophils # (Manual) Nucleated RBC % Basophils # (Manual) 0.3 H PT INR APTT Heparin Anti-Xa Level ABG pH POC ABG pO2 ABG pO2 ABG HCO3 ABG O2 Saturation ABG Base Excess POC ABG pCO2 ABG Hemoglobin ABG Oxyhemoglobin ABG Chloride ABG Glucose Oxyhemoglobin Sodium 147 H Potassium Chloride 108.3 H Carbon Dioxide BUN 21 H Creatinine 0.6 L Glucose 104 H POC Glucose 133 H Lactic Acid Calcium Phosphorus Magnesium AST ALT Lactate Dehydrogenase Total Bilirubin Direct Bilirubin CK-MB (CK-2) C-Reactive Protein NT-Pro-B Natriuret Pep Total Protein Albumin Arterial Blood Glucose Urine WBC (Auto) Urine Creatinine 12/10/19 12/10/19 12/11/19 18:44 21:20 00:08 WBC 14.9 H RBC 3.36 L Hgb 9.6 L Hct 30.5 L MCHC RDW 15.4 H MCV MCH Lymph % (Auto) Bennett % (Auto) Bennett # Eos # Lymph # (Auto) Bennett # (Auto) Eos # (Auto) Seg Neutrophils % Seg Neuts % (Manual) Baso # (Auto) Lymphocytes % (Manual) Monocytes % (Manual) Eosinophils % (Manual) Basophils % (Manual) Seg Neutrophils # Seg Neutrophils # Man Lymphocytes # (Manual) Monocytes # (Manual) Eosinophils # (Manual) Nucleated RBC % Basophils # (Manual) PT INR APTT Heparin Anti-Xa Level ABG pH POC ABG pO2 ABG pO2 ABG HCO3 ABG O2 Saturation ABG Base Excess POC ABG pCO2 ABG Hemoglobin ABG Oxyhemoglobin ABG Chloride ABG Glucose Oxyhemoglobin Sodium Potassium Chloride Carbon Dioxide BUN Creatinine Glucose POC Glucose 119 H 134 H Lactic Acid Calcium Phosphorus Magnesium AST ALT Lactate Dehydrogenase Total Bilirubin Direct Bilirubin CK-MB (CK-2) C-Reactive Protein NT-Pro-B Natriuret Pep Total Protein Albumin Arterial Blood Glucose Urine WBC (Auto) Urine Creatinine 12/11/19 12/11/19 12/11/19 03:54 07:28 08:36 WBC 11.9 H RBC 3.25 L Hgb 9.6 L Hct 29.2 L MCHC RDW 15.7 H MCV MCH Lymph % (Auto) Bennett % (Auto) Bennett # Eos # Lymph # (Auto) Bennett # (Auto) Eos # (Auto) Seg Neutrophils % Seg Neuts % (Manual) Baso # (Auto) Lymphocytes % (Manual) Monocytes % (Manual) Eosinophils % (Manual) Basophils % (Manual) Seg Neutrophils # Seg Neutrophils # Man Lymphocytes # (Manual) Monocytes # (Manual) Eosinophils # (Manual) Nucleated RBC % Basophils # (Manual) PT INR APTT Heparin Anti-Xa Level 0.10 L 0.16 L ABG pH POC ABG pO2 ABG pO2 ABG HCO3 ABG O2 Saturation ABG Base Excess POC ABG pCO2 ABG Hemoglobin ABG Oxyhemoglobin ABG Chloride ABG Glucose Oxyhemoglobin Sodium Potassium Chloride Carbon Dioxide BUN Creatinine Glucose POC Glucose Lactic Acid Calcium Phosphorus Magnesium AST ALT Lactate Dehydrogenase Total Bilirubin Direct Bilirubin CK-MB (CK-2) C-Reactive Protein NT-Pro-B Natriuret Pep Total Protein Albumin Arterial Blood Glucose Urine WBC (Auto) Urine Creatinine 12/11/19 12/11/19 12/11/19 08:36 11:45 17:15 WBC RBC Hgb Hct MCHC RDW MCV MCH Lymph % (Auto) Bennett % (Auto) Bennett # Eos # Lymph # (Auto) Bennett # (Auto) Eos # (Auto) Seg Neutrophils % Seg Neuts % (Manual) Baso # (Auto) Lymphocytes % (Manual) Monocytes % (Manual) Eosinophils % (Manual) Basophils % (Manual) Seg Neutrophils # Seg Neutrophils # Man Lymphocytes # (Manual) Monocytes # (Manual) Eosinophils # (Manual) Nucleated RBC % Basophils # (Manual) PT INR APTT Heparin Anti-Xa Level ABG pH POC ABG pO2 ABG pO2 ABG HCO3 ABG O2 Saturation ABG Base Excess POC ABG pCO2 ABG Hemoglobin ABG Oxyhemoglobin ABG Chloride ABG Glucose Oxyhemoglobin Sodium Potassium Chloride Carbon Dioxide BUN Creatinine 0.5 L Glucose 128 H POC Glucose 136 H 109 H Lactic Acid Calcium Phosphorus Magnesium AST ALT Lactate Dehydrogenase Total Bilirubin Direct Bilirubin CK-MB (CK-2) C-Reactive Protein NT-Pro-B Natriuret Pep Total Protein Albumin Arterial Blood Glucose Urine WBC (Auto) Urine Creatinine 12/12/19 12/12/19 12/12/19 00:03 05:53 05:53 WBC RBC Hgb 8.8 L Hct 27.6 L MCHC RDW MCV MCH Lymph % (Auto) Bennett % (Auto) Bennett # Eos # Lymph # (Auto) Bennett # (Auto) Eos # (Auto) Seg Neutrophils % Seg Neuts % (Manual) Baso # (Auto) Lymphocytes % (Manual) Monocytes % (Manual) Eosinophils % (Manual) Basophils % (Manual) Seg Neutrophils # Seg Neutrophils # Man Lymphocytes # (Manual) Monocytes # (Manual) Eosinophils # (Manual) Nucleated RBC % Basophils # (Manual) PT INR APTT Heparin Anti-Xa Level 0.22 L ABG pH POC ABG pO2 ABG pO2 ABG HCO3 ABG O2 Saturation ABG Base Excess POC ABG pCO2 ABG Hemoglobin ABG Oxyhemoglobin ABG Chloride ABG Glucose Oxyhemoglobin Sodium Potassium Chloride Carbon Dioxide BUN Creatinine Glucose POC Glucose 116 H Lactic Acid Calcium Phosphorus Magnesium AST ALT Lactate Dehydrogenase Total Bilirubin Direct Bilirubin CK-MB (CK-2) C-Reactive Protein NT-Pro-B Natriuret Pep Total Protein Albumin Arterial Blood Glucose Urine WBC (Auto) Urine Creatinine 12/12/19 12/12/19 12/12/19 09:38 12:18 17:44 WBC RBC Hgb Hct MCHC RDW MCV MCH Lymph % (Auto) Bennett % (Auto) Bennett # Eos # Lymph # (Auto) Bennett # (Auto) Eos # (Auto) Seg Neutrophils % Seg Neuts % (Manual) Baso # (Auto) Lymphocytes % (Manual) Monocytes % (Manual) Eosinophils % (Manual) Basophils % (Manual) Seg Neutrophils # Seg Neutrophils # Man Lymphocytes # (Manual) Monocytes # (Manual) Eosinophils # (Manual) Nucleated RBC % Basophils # (Manual) PT INR APTT Heparin Anti-Xa Level ABG pH POC ABG pO2 ABG pO2 ABG HCO3 ABG O2 Saturation ABG Base Excess POC ABG pCO2 ABG Hemoglobin ABG Oxyhemoglobin ABG Chloride ABG Glucose Oxyhemoglobin Sodium Potassium Chloride Carbon Dioxide BUN Creatinine Glucose POC Glucose 115 H 146 H 146 H Lactic Acid Calcium Phosphorus Magnesium AST ALT Lactate Dehydrogenase Total Bilirubin Direct Bilirubin CK-MB (CK-2) C-Reactive Protein NT-Pro-B Natriuret Pep Total Protein Albumin Arterial Blood Glucose Urine WBC (Auto) Urine Creatinine 12/12/19 12/13/19 12/13/19 23:33 05:32 05:32 WBC 13.1 H RBC 3.27 L Hgb 9.5 L Hct 29.3 L MCHC RDW 15.6 H MCV MCH Lymph % (Auto) Bennett % (Auto) Bennett # Eos # Lymph # (Auto) Bennett # (Auto) Eos # (Auto) Seg Neutrophils % Seg Neuts % (Manual) 74.0 H Baso # (Auto) Lymphocytes % (Manual) 8.0 L Monocytes % (Manual) 9.0 H Eosinophils % (Manual) 5.0 H Basophils % (Manual) Seg Neutrophils # Seg Neutrophils # Man 9.7 H Lymphocytes # (Manual) 1.0 L Monocytes # (Manual) 1.2 H Eosinophils # (Manual) 0.7 H Nucleated RBC % Basophils # (Manual) PT INR APTT Heparin Anti-Xa Level 0.20 L ABG pH POC ABG pO2 ABG pO2 ABG HCO3 ABG O2 Saturation ABG Base Excess POC ABG pCO2 ABG Hemoglobin ABG Oxyhemoglobin ABG Chloride ABG Glucose Oxyhemoglobin Sodium Potassium Chloride Carbon Dioxide BUN Creatinine Glucose POC Glucose 126 H Lactic Acid Calcium Phosphorus Magnesium AST ALT Lactate Dehydrogenase Total Bilirubin Direct Bilirubin CK-MB (CK-2) C-Reactive Protein NT-Pro-B Natriuret Pep Total Protein Albumin Arterial Blood Glucose Urine WBC (Auto) Urine Creatinine 12/13/19 12/13/19 12/13/19 05:32 05:46 11:57 WBC RBC Hgb Hct MCHC RDW MCV MCH Lymph % (Auto) Bennett % (Auto) Bennett # Eos # Lymph # (Auto) Bennett # (Auto) Eos # (Auto) Seg Neutrophils % Seg Neuts % (Manual) Baso # (Auto) Lymphocytes % (Manual) Monocytes % (Manual) Eosinophils % (Manual) Basophils % (Manual) Seg Neutrophils # Seg Neutrophils # Man Lymphocytes # (Manual) Monocytes # (Manual) Eosinophils # (Manual) Nucleated RBC % Basophils # (Manual) PT INR APTT Heparin Anti-Xa Level ABG pH POC ABG pO2 ABG pO2 ABG HCO3 ABG O2 Saturation ABG Base Excess POC ABG pCO2 ABG Hemoglobin ABG Oxyhemoglobin ABG Chloride ABG Glucose Oxyhemoglobin Sodium Potassium Chloride Carbon Dioxide 31 H BUN Creatinine 0.6 L Glucose 114 H POC Glucose 118 H 133 H Lactic Acid Calcium Phosphorus Magnesium AST ALT Lactate Dehydrogenase Total Bilirubin Direct Bilirubin CK-MB (CK-2) C-Reactive Protein NT-Pro-B Natriuret Pep Total Protein Albumin Arterial Blood Glucose Urine WBC (Auto) Urine Creatinine 12/13/19 12/13/19 12/14/19 17:44 23:46 05:32 WBC RBC Hgb Hct MCHC RDW MCV MCH Lymph % (Auto) Bennett % (Auto) Bennett # Eos # Lymph # (Auto) Bennett # (Auto) Eos # (Auto) Seg Neutrophils % Seg Neuts % (Manual) Baso # (Auto) Lymphocytes % (Manual) Monocytes % (Manual) Eosinophils % (Manual) Basophils % (Manual) Seg Neutrophils # Seg Neutrophils # Man Lymphocytes # (Manual) Monocytes # (Manual) Eosinophils # (Manual) Nucleated RBC % Basophils # (Manual) PT INR APTT Heparin Anti-Xa Level ABG pH POC ABG pO2 ABG pO2 ABG HCO3 ABG O2 Saturation ABG Base Excess POC ABG pCO2 ABG Hemoglobin ABG Oxyhemoglobin ABG Chloride ABG Glucose Oxyhemoglobin Sodium Potassium Chloride Carbon Dioxide BUN Creatinine Glucose POC Glucose 161 H 126 H 139 H Lactic Acid Calcium Phosphorus Magnesium AST ALT Lactate Dehydrogenase Total Bilirubin Direct Bilirubin CK-MB (CK-2) C-Reactive Protein NT-Pro-B Natriuret Pep Total Protein Albumin Arterial Blood Glucose Urine WBC (Auto) Urine Creatinine 12/14/19 12/14/19 12/14/19 06:03 06:03 09:37 WBC RBC Hgb 9.6 L Hct 30.4 L MCHC RDW MCV MCH Lymph % (Auto) Bennett % (Auto) Bennett # Eos # Lymph # (Auto) Bennett # (Auto) Eos # (Auto) Seg Neutrophils % Seg Neuts % (Manual) Baso # (Auto) Lymphocytes % (Manual) Monocytes % (Manual) Eosinophils % (Manual) Basophils % (Manual) Seg Neutrophils # Seg Neutrophils # Man Lymphocytes # (Manual) Monocytes # (Manual) Eosinophils # (Manual) Nucleated RBC % Basophils # (Manual) PT INR APTT Heparin Anti-Xa Level 0.24 L ABG pH POC ABG pO2 ABG pO2 ABG HCO3 ABG O2 Saturation ABG Base Excess POC ABG pCO2 ABG Hemoglobin ABG Oxyhemoglobin ABG Chloride ABG Glucose Oxyhemoglobin Sodium Potassium Chloride Carbon Dioxide BUN Creatinine 0.6 L Glucose 162 H POC Glucose Lactic Acid Calcium Phosphorus Magnesium AST 71 H ALT 118 H Lactate Dehydrogenase Total Bilirubin Direct Bilirubin CK-MB (CK-2) C-Reactive Protein NT-Pro-B Natriuret Pep Total Protein 6.2 L Albumin 2.3 L Arterial Blood Glucose Urine WBC (Auto) Urine Creatinine 12/14/19 12/14/19 12/15/19 12:06 18:18 00:19 WBC RBC Hgb Hct MCHC RDW MCV MCH Lymph % (Auto) Bennett % (Auto) Bennett # Eos # Lymph # (Auto) Bennett # (Auto) Eos # (Auto) Seg Neutrophils % Seg Neuts % (Manual) Baso # (Auto) Lymphocytes % (Manual) Monocytes % (Manual) Eosinophils % (Manual) Basophils % (Manual) Seg Neutrophils # Seg Neutrophils # Man Lymphocytes # (Manual) Monocytes # (Manual) Eosinophils # (Manual) Nucleated RBC % Basophils # (Manual) PT INR APTT Heparin Anti-Xa Level ABG pH POC ABG pO2 ABG pO2 ABG HCO3 ABG O2 Saturation ABG Base Excess POC ABG pCO2 ABG Hemoglobin ABG Oxyhemoglobin ABG Chloride ABG Glucose Oxyhemoglobin Sodium Potassium Chloride Carbon Dioxide BUN Creatinine Glucose POC Glucose 147 H 166 H 123 H Lactic Acid Calcium Phosphorus Magnesium AST ALT Lactate Dehydrogenase Total Bilirubin Direct Bilirubin CK-MB (CK-2) C-Reactive Protein NT-Pro-B Natriuret Pep Total Protein Albumin Arterial Blood Glucose Urine WBC (Auto) Urine Creatinine 12/15/19 12/15/19 12/15/19 05:28 05:29 05:29 WBC 14.9 H RBC 3.19 L Hgb 9.1 L Hct 28.7 L MCHC RDW 16.0 H MCV MCH Lymph % (Auto) Bennett % (Auto) Bennett # Eos # Lymph # (Auto) Bennett # (Auto) Eos # (Auto) Seg Neutrophils % Seg Neuts % (Manual) Baso # (Auto) Lymphocytes % (Manual) Monocytes % (Manual) Eosinophils % (Manual) Basophils % (Manual) Seg Neutrophils # Seg Neutrophils # Man Lymphocytes # (Manual) Monocytes # (Manual) Eosinophils # (Manual) Nucleated RBC % Basophils # (Manual) PT INR APTT Heparin Anti-Xa Level 0.19 L ABG pH POC ABG pO2 ABG pO2 ABG HCO3 ABG O2 Saturation ABG Base Excess POC ABG pCO2 ABG Hemoglobin ABG Oxyhemoglobin ABG Chloride ABG Glucose Oxyhemoglobin Sodium Potassium Chloride Carbon Dioxide BUN Creatinine 0.6 L Glucose 110 H POC Glucose Lactic Acid Calcium Phosphorus Magnesium AST ALT Lactate Dehydrogenase Total Bilirubin Direct Bilirubin CK-MB (CK-2) C-Reactive Protein NT-Pro-B Natriuret Pep Total Protein Albumin Arterial Blood Glucose Urine WBC (Auto) Urine Creatinine 12/15/19 12/15/19 12/15/19 05:53 11:50 17:26 WBC RBC Hgb Hct MCHC RDW MCV MCH Lymph % (Auto) Bennett % (Auto) Bennett # Eos # Lymph # (Auto) Bennett # (Auto) Eos # (Auto) Seg Neutrophils % Seg Neuts % (Manual) Baso # (Auto) Lymphocytes % (Manual) Monocytes % (Manual) Eosinophils % (Manual) Basophils % (Manual) Seg Neutrophils # Seg Neutrophils # Man Lymphocytes # (Manual) Monocytes # (Manual) Eosinophils # (Manual) Nucleated RBC % Basophils # (Manual) PT INR APTT Heparin Anti-Xa Level ABG pH POC ABG pO2 ABG pO2 ABG HCO3 ABG O2 Saturation ABG Base Excess POC ABG pCO2 ABG Hemoglobin ABG Oxyhemoglobin ABG Chloride ABG Glucose Oxyhemoglobin Sodium Potassium Chloride Carbon Dioxide BUN Creatinine Glucose POC Glucose 119 H 132 H 128 H Lactic Acid Calcium Phosphorus Magnesium AST ALT Lactate Dehydrogenase Total Bilirubin Direct Bilirubin CK-MB (CK-2) C-Reactive Protein NT-Pro-B Natriuret Pep Total Protein Albumin Arterial Blood Glucose Urine WBC (Auto) Urine Creatinine 12/15/19 12/16/19 12/16/19 23:11 05:30 05:46 WBC RBC Hgb 8.8 L Hct 27.9 L MCHC RDW MCV MCH Lymph % (Auto) Bennett % (Auto) Bennett # Eos # Lymph # (Auto) Bennett # (Auto) Eos # (Auto) Seg Neutrophils % Seg Neuts % (Manual) Baso # (Auto) Lymphocytes % (Manual) Monocytes % (Manual) Eosinophils % (Manual) Basophils % (Manual) Seg Neutrophils # Seg Neutrophils # Man Lymphocytes # (Manual) Monocytes # (Manual) Eosinophils # (Manual) Nucleated RBC % Basophils # (Manual) PT INR APTT Heparin Anti-Xa Level ABG pH POC ABG pO2 ABG pO2 ABG HCO3 ABG O2 Saturation ABG Base Excess POC ABG pCO2 ABG Hemoglobin ABG Oxyhemoglobin ABG Chloride ABG Glucose Oxyhemoglobin Sodium Potassium Chloride Carbon Dioxide BUN Creatinine Glucose POC Glucose 150 H 134 H Lactic Acid Calcium Phosphorus Magnesium AST ALT Lactate Dehydrogenase Total Bilirubin Direct Bilirubin CK-MB (CK-2) C-Reactive Protein NT-Pro-B Natriuret Pep Total Protein Albumin Arterial Blood Glucose Urine WBC (Auto) Urine Creatinine 12/16/19 12/16/19 12/16/19 05:46 05:46 11:44 WBC RBC Hgb Hct MCHC RDW MCV MCH Lymph % (Auto) Bennett % (Auto) Bennett # Eos # Lymph # (Auto) Bennett # (Auto) Eos # (Auto) Seg Neutrophils % Seg Neuts % (Manual) Baso # (Auto) Lymphocytes % (Manual) Monocytes % (Manual) Eosinophils % (Manual) Basophils % (Manual) Seg Neutrophils # Seg Neutrophils # Man Lymphocytes # (Manual) Monocytes # (Manual) Eosinophils # (Manual) Nucleated RBC % Basophils # (Manual) PT INR APTT Heparin Anti-Xa Level 0.20 L ABG pH POC ABG pO2 ABG pO2 ABG HCO3 ABG O2 Saturation ABG Base Excess POC ABG pCO2 ABG Hemoglobin ABG Oxyhemoglobin ABG Chloride ABG Glucose Oxyhemoglobin Sodium Potassium Chloride Carbon Dioxide 31 H BUN Creatinine 0.5 L Glucose 147 H POC Glucose 164 H Lactic Acid Calcium Phosphorus Magnesium AST ALT Lactate Dehydrogenase Total Bilirubin Direct Bilirubin CK-MB (CK-2) C-Reactive Protein NT-Pro-B Natriuret Pep Total Protein Albumin Arterial Blood Glucose Urine WBC (Auto) Urine Creatinine 12/16/19 12/16/19 12/17/19 17:17 23:49 05:30 WBC 13.9 H RBC 3.27 L Hgb 9.4 L Hct 29.2 L MCHC RDW 16.0 H MCV MCH Lymph % (Auto) Bennett % (Auto) 8.8 H Bennett # Eos # Lymph # (Auto) Bennett # (Auto) 1.2 H Eos # (Auto) 0.5 H Seg Neutrophils % 70.5 H Seg Neuts % (Manual) Baso # (Auto) 0.2 H Lymphocytes % (Manual) Monocytes % (Manual) Eosinophils % (Manual) Basophils % (Manual) Seg Neutrophils # 9.8 H Seg Neutrophils # Man Lymphocytes # (Manual) Monocytes # (Manual) Eosinophils # (Manual) Nucleated RBC % Basophils # (Manual) PT INR APTT Heparin Anti-Xa Level ABG pH POC ABG pO2 ABG pO2 ABG HCO3 ABG O2 Saturation ABG Base Excess POC ABG pCO2 ABG Hemoglobin ABG Oxyhemoglobin ABG Chloride ABG Glucose Oxyhemoglobin Sodium Potassium Chloride Carbon Dioxide BUN Creatinine Glucose POC Glucose 162 H 144 H Lactic Acid Calcium Phosphorus Magnesium AST ALT Lactate Dehydrogenase Total Bilirubin Direct Bilirubin CK-MB (CK-2) C-Reactive Protein NT-Pro-B Natriuret Pep Total Protein Albumin Arterial Blood Glucose Urine WBC (Auto) Urine Creatinine 12/17/19 12/17/19 12/17/19 05:30 06:06 11:50 WBC RBC Hgb Hct MCHC RDW MCV MCH Lymph % (Auto) Bennett % (Auto) Bennett # Eos # Lymph # (Auto) Bennett # (Auto) Eos # (Auto) Seg Neutrophils % Seg Neuts % (Manual) Baso # (Auto) Lymphocytes % (Manual) Monocytes % (Manual) Eosinophils % (Manual) Basophils % (Manual) Seg Neutrophils # Seg Neutrophils # Man Lymphocytes # (Manual) Monocytes # (Manual) Eosinophils # (Manual) Nucleated RBC % Basophils # (Manual) PT INR APTT Heparin Anti-Xa Level ABG pH POC ABG pO2 ABG pO2 ABG HCO3 ABG O2 Saturation ABG Base Excess POC ABG pCO2 ABG Hemoglobin ABG Oxyhemoglobin ABG Chloride ABG Glucose Oxyhemoglobin Sodium Potassium Chloride 97.4 L Carbon Dioxide 32 H BUN Creatinine 0.5 L Glucose 135 H POC Glucose 151 H 140 H Lactic Acid Calcium Phosphorus Magnesium AST ALT Lactate Dehydrogenase Total Bilirubin Direct Bilirubin CK-MB (CK-2) C-Reactive Protein NT-Pro-B Natriuret Pep Total Protein Albumin Arterial Blood Glucose Urine WBC (Auto) Urine Creatinine 12/17/19 12/17/19 12/18/19 17:50 23:46 05:17 WBC RBC Hgb 8.8 L Hct 28.0 L MCHC RDW MCV MCH Lymph % (Auto) Bennett % (Auto) Bennett # Eos # Lymph # (Auto) Bennett # (Auto) Eos # (Auto) Seg Neutrophils % Seg Neuts % (Manual) Baso # (Auto) Lymphocytes % (Manual) Monocytes % (Manual) Eosinophils % (Manual) Basophils % (Manual) Seg Neutrophils # Seg Neutrophils # Man Lymphocytes # (Manual) Monocytes # (Manual) Eosinophils # (Manual) Nucleated RBC % Basophils # (Manual) PT INR APTT Heparin Anti-Xa Level ABG pH POC ABG pO2 ABG pO2 ABG HCO3 ABG O2 Saturation ABG Base Excess POC ABG pCO2 ABG Hemoglobin ABG Oxyhemoglobin ABG Chloride ABG Glucose Oxyhemoglobin Sodium Potassium Chloride Carbon Dioxide BUN Creatinine Glucose POC Glucose 158 H 150 H Lactic Acid Calcium Phosphorus Magnesium AST ALT Lactate Dehydrogenase Total Bilirubin Direct Bilirubin CK-MB (CK-2) C-Reactive Protein NT-Pro-B Natriuret Pep Total Protein Albumin Arterial Blood Glucose Urine WBC (Auto) Urine Creatinine 12/18/19 12/18/19 12/18/19 05:17 05:49 11:12 WBC RBC Hgb Hct MCHC RDW MCV MCH Lymph % (Auto) Bennett % (Auto) Bennett # Eos # Lymph # (Auto) Bennett # (Auto) Eos # (Auto) Seg Neutrophils % Seg Neuts % (Manual) Baso # (Auto) Lymphocytes % (Manual) Monocytes % (Manual) Eosinophils % (Manual) Basophils % (Manual) Seg Neutrophils # Seg Neutrophils # Man Lymphocytes # (Manual) Monocytes # (Manual) Eosinophils # (Manual) Nucleated RBC % Basophils # (Manual) PT INR APTT Heparin Anti-Xa Level 0.16 L ABG pH POC ABG pO2 ABG pO2 ABG HCO3 ABG O2 Saturation ABG Base Excess POC ABG pCO2 ABG Hemoglobin ABG Oxyhemoglobin ABG Chloride ABG Glucose Oxyhemoglobin Sodium Potassium Chloride Carbon Dioxide BUN Creatinine Glucose POC Glucose 127 H 191 H Lactic Acid Calcium Phosphorus Magnesium AST ALT Lactate Dehydrogenase Total Bilirubin Direct Bilirubin CK-MB (CK-2) C-Reactive Protein NT-Pro-B Natriuret Pep Total Protein Albumin Arterial Blood Glucose Urine WBC (Auto) Urine Creatinine 12/18/19 12/18/19 12/19/19 17:03 20:16 00:08 WBC RBC Hgb Hct MCHC RDW MCV MCH Lymph % (Auto) Bennett % (Auto) Bennett # Eos # Lymph # (Auto) Bennett # (Auto) Eos # (Auto) Seg Neutrophils % Seg Neuts % (Manual) Baso # (Auto) Lymphocytes % (Manual) Monocytes % (Manual) Eosinophils % (Manual) Basophils % (Manual) Seg Neutrophils # Seg Neutrophils # Man Lymphocytes # (Manual) Monocytes # (Manual) Eosinophils # (Manual) Nucleated RBC % Basophils # (Manual) PT INR APTT Heparin Anti-Xa Level ABG pH POC ABG pO2 ABG pO2 ABG HCO3 ABG O2 Saturation ABG Base Excess POC ABG pCO2 ABG Hemoglobin ABG Oxyhemoglobin ABG Chloride ABG Glucose Oxyhemoglobin Sodium Potassium Chloride Carbon Dioxide BUN Creatinine Glucose POC Glucose 133 H 128 H 129 H Lactic Acid Calcium Phosphorus Magnesium AST ALT Lactate Dehydrogenase Total Bilirubin Direct Bilirubin CK-MB (CK-2) C-Reactive Protein NT-Pro-B Natriuret Pep Total Protein Albumin Arterial Blood Glucose Urine WBC (Auto) Urine Creatinine 12/19/19 12/19/19 12/19/19 04:45 04:45 05:35 WBC RBC Hgb Hct MCHC RDW MCV MCH Lymph % (Auto) Bennett % (Auto) Bennett # Eos # Lymph # (Auto) Bennett # (Auto) Eos # (Auto) Seg Neutrophils % Seg Neuts % (Manual) Baso # (Auto) Lymphocytes % (Manual) Monocytes % (Manual) Eosinophils % (Manual) Basophils % (Manual) Seg Neutrophils # Seg Neutrophils # Man Lymphocytes # (Manual) Monocytes # (Manual) Eosinophils # (Manual) Nucleated RBC % Basophils # (Manual) PT INR APTT Heparin Anti-Xa Level 0.17 L ABG pH POC ABG pO2 ABG pO2 ABG HCO3 ABG O2 Saturation ABG Base Excess POC ABG pCO2 ABG Hemoglobin ABG Oxyhemoglobin ABG Chloride ABG Glucose Oxyhemoglobin Sodium Potassium Chloride Carbon Dioxide BUN Creatinine Glucose POC Glucose 120 H Lactic Acid Calcium Phosphorus Magnesium AST ALT Lactate Dehydrogenase 228 H Total Bilirubin Direct Bilirubin CK-MB (CK-2) C-Reactive Protein NT-Pro-B Natriuret Pep Total Protein Albumin Arterial Blood Glucose Urine WBC (Auto) Urine Creatinine 12/19/19 12/19/19 12/19/19 09:20 11:32 11:32 WBC 14.6 H RBC 3.08 L Hgb 9.0 L Hct 26.8 L MCHC RDW 15.9 H MCV MCH Lymph % (Auto) Bennett % (Auto) Bennett # Eos # Lymph # (Auto) Bennett # (Auto) Eos # (Auto) Seg Neutrophils % Seg Neuts % (Manual) 82.0 H Baso # (Auto) Lymphocytes % (Manual) 10.0 L Monocytes % (Manual) Eosinophils % (Manual) Basophils % (Manual) Seg Neutrophils # Seg Neutrophils # Man 12.0 H Lymphocytes # (Manual) Monocytes # (Manual) 0.9 H Eosinophils # (Manual) Nucleated RBC % 1.0 H Basophils # (Manual) PT INR APTT Heparin Anti-Xa Level ABG pH 7.451 H POC ABG pO2 ABG pO2 62.6 L ABG HCO3 33.2 H ABG O2 Saturation 93.8 L ABG Base Excess 8.3 H POC ABG pCO2 ABG Hemoglobin 8.3 L ABG Oxyhemoglobin ABG Chloride ABG Glucose Oxyhemoglobin 91.9 L Sodium Potassium Chloride 95.0 L Carbon Dioxide 33 H BUN 22 H Creatinine 0.6 L Glucose 150 H POC Glucose Lactic Acid Calcium Phosphorus Magnesium AST ALT Lactate Dehydrogenase Total Bilirubin Direct Bilirubin CK-MB (CK-2) C-Reactive Protein NT-Pro-B Natriuret Pep Total Protein 6.2 L Albumin 2.4 L Arterial Blood Glucose Urine WBC (Auto) Urine Creatinine 12/19/19 12/19/19 12/20/19 11:56 18:17 00:09 WBC RBC Hgb Hct MCHC RDW MCV MCH Lymph % (Auto) Bennett % (Auto) Bennett # Eos # Lymph # (Auto) Bennett # (Auto) Eos # (Auto) Seg Neutrophils % Seg Neuts % (Manual) Baso # (Auto) Lymphocytes % (Manual) Monocytes % (Manual) Eosinophils % (Manual) Basophils % (Manual) Seg Neutrophils # Seg Neutrophils # Man Lymphocytes # (Manual) Monocytes # (Manual) Eosinophils # (Manual) Nucleated RBC % Basophils # (Manual) PT INR APTT Heparin Anti-Xa Level ABG pH POC ABG pO2 ABG pO2 ABG HCO3 ABG O2 Saturation ABG Base Excess POC ABG pCO2 ABG Hemoglobin ABG Oxyhemoglobin ABG Chloride ABG Glucose Oxyhemoglobin Sodium Potassium Chloride Carbon Dioxide BUN Creatinine Glucose POC Glucose 156 H 156 H 155 H Lactic Acid Calcium Phosphorus Magnesium AST ALT Lactate Dehydrogenase Total Bilirubin Direct Bilirubin CK-MB (CK-2) C-Reactive Protein NT-Pro-B Natriuret Pep Total Protein Albumin Arterial Blood Glucose Urine WBC (Auto) Urine Creatinine 12/20/19 12/20/19 12/20/19 05:26 06:02 18:17 WBC RBC Hgb Hct MCHC RDW MCV MCH Lymph % (Auto) Bennett % (Auto) Bennett # Eos # Lymph # (Auto) Bennett # (Auto) Eos # (Auto) Seg Neutrophils % Seg Neuts % (Manual) Baso # (Auto) Lymphocytes % (Manual) Monocytes % (Manual) Eosinophils % (Manual) Basophils % (Manual) Seg Neutrophils # Seg Neutrophils # Man Lymphocytes # (Manual) Monocytes # (Manual) Eosinophils # (Manual) Nucleated RBC % Basophils # (Manual) PT INR APTT Heparin Anti-Xa Level 0.19 L ABG pH POC ABG pO2 ABG pO2 ABG HCO3 ABG O2 Saturation ABG Base Excess POC ABG pCO2 ABG Hemoglobin ABG Oxyhemoglobin ABG Chloride ABG Glucose Oxyhemoglobin Sodium Potassium Chloride Carbon Dioxide BUN Creatinine Glucose POC Glucose 137 H 128 H Lactic Acid Calcium Phosphorus Magnesium AST ALT Lactate Dehydrogenase Total Bilirubin Direct Bilirubin CK-MB (CK-2) C-Reactive Protein NT-Pro-B Natriuret Pep Total Protein Albumin Arterial Blood Glucose Urine WBC (Auto) Urine Creatinine 12/20/19 12/21/19 12/21/19 23:34 05:31 05:31 WBC 12.7 H RBC 3.09 L Hgb 8.9 L Hct 27.4 L MCHC RDW 15.8 H MCV MCH Lymph % (Auto) 12.1 L Bennett % (Auto) 7.8 H Bennett # Eos # Lymph # (Auto) Bennett # (Auto) 1.0 H Eos # (Auto) Seg Neutrophils % 77.1 H Seg Neuts % (Manual) Baso # (Auto) Lymphocytes % (Manual) Monocytes % (Manual) Eosinophils % (Manual) Basophils % (Manual) Seg Neutrophils # 9.8 H Seg Neutrophils # Man Lymphocytes # (Manual) Monocytes # (Manual) Eosinophils # (Manual) Nucleated RBC % Basophils # (Manual) PT INR APTT Heparin Anti-Xa Level ABG pH POC ABG pO2 ABG pO2 ABG HCO3 ABG O2 Saturation ABG Base Excess POC ABG pCO2 ABG Hemoglobin ABG Oxyhemoglobin ABG Chloride ABG Glucose Oxyhemoglobin Sodium Potassium Chloride 96.9 L Carbon Dioxide 37 H BUN 27 H Creatinine 0.7 L Glucose 140 H POC Glucose 145 H Lactic Acid Calcium Phosphorus Magnesium AST ALT Lactate Dehydrogenase Total Bilirubin Direct Bilirubin CK-MB (CK-2) C-Reactive Protein NT-Pro-B Natriuret Pep Total Protein Albumin Arterial Blood Glucose Urine WBC (Auto) Urine Creatinine 12/21/19 12/21/19 12/21/19 05:38 10:13 11:51 WBC RBC Hgb Hct MCHC RDW MCV MCH Lymph % (Auto) Bennett % (Auto) Bennett # Eos # Lymph # (Auto) Bennett # (Auto) Eos # (Auto) Seg Neutrophils % Seg Neuts % (Manual) Baso # (Auto) Lymphocytes % (Manual) Monocytes % (Manual) Eosinophils % (Manual) Basophils % (Manual) Seg Neutrophils # Seg Neutrophils # Man Lymphocytes # (Manual) Monocytes # (Manual) Eosinophils # (Manual) Nucleated RBC % Basophils # (Manual) PT INR APTT 23.9 L Heparin Anti-Xa Level < 0.10 L ABG pH POC ABG pO2 ABG pO2 ABG HCO3 ABG O2 Saturation ABG Base Excess POC ABG pCO2 ABG Hemoglobin ABG Oxyhemoglobin ABG Chloride ABG Glucose Oxyhemoglobin Sodium Potassium Chloride Carbon Dioxide BUN Creatinine Glucose POC Glucose 151 H 145 H Lactic Acid Calcium Phosphorus Magnesium AST ALT Lactate Dehydrogenase Total Bilirubin Direct Bilirubin CK-MB (CK-2) C-Reactive Protein NT-Pro-B Natriuret Pep Total Protein Albumin Arterial Blood Glucose Urine WBC (Auto) Urine Creatinine 12/21/19 12/22/19 12/22/19 17:16 00:01 01:33 WBC RBC Hgb Hct MCHC RDW MCV MCH Lymph % (Auto) Bennett % (Auto) Bennett # Eos # Lymph # (Auto) Bennett # (Auto) Eos # (Auto) Seg Neutrophils % Seg Neuts % (Manual) Baso # (Auto) Lymphocytes % (Manual) Monocytes % (Manual) Eosinophils % (Manual) Basophils % (Manual) Seg Neutrophils # Seg Neutrophils # Man Lymphocytes # (Manual) Monocytes # (Manual) Eosinophils # (Manual) Nucleated RBC % Basophils # (Manual) PT INR APTT Heparin Anti-Xa Level 0.10 L ABG pH POC ABG pO2 ABG pO2 ABG HCO3 ABG O2 Saturation ABG Base Excess POC ABG pCO2 ABG Hemoglobin ABG Oxyhemoglobin ABG Chloride ABG Glucose Oxyhemoglobin Sodium Potassium Chloride Carbon Dioxide BUN Creatinine Glucose POC Glucose 167 H 179 H Lactic Acid Calcium Phosphorus Magnesium AST ALT Lactate Dehydrogenase Total Bilirubin Direct Bilirubin CK-MB (CK-2) C-Reactive Protein NT-Pro-B Natriuret Pep Total Protein Albumin Arterial Blood Glucose Urine WBC (Auto) Urine Creatinine 12/22/19 12/22/19 12/22/19 03:22 05:10 05:10 WBC 13.8 H RBC 3.20 L Hgb 8.9 L Hct 28.1 L MCHC RDW 15.9 H MCV MCH Lymph % (Auto) Bennett % (Auto) Bennett # Eos # Lymph # (Auto) Bennett # (Auto) Eos # (Auto) Seg Neutrophils % Seg Neuts % (Manual) Baso # (Auto) Lymphocytes % (Manual) Monocytes % (Manual) Eosinophils % (Manual) Basophils % (Manual) Seg Neutrophils # Seg Neutrophils # Man Lymphocytes # (Manual) Monocytes # (Manual) Eosinophils # (Manual) Nucleated RBC % Basophils # (Manual) PT INR APTT Heparin Anti-Xa Level ABG pH POC ABG pO2 52.3 L ABG pO2 ABG HCO3 ABG O2 Saturation ABG Base Excess POC ABG pCO2 52.9 H ABG Hemoglobin 10.7 L ABG Oxyhemoglobin 84 L ABG Chloride ABG Glucose Oxyhemoglobin Sodium Potassium Chloride 96.6 L Carbon Dioxide BUN 25 H Creatinine 0.7 L Glucose 129 H POC Glucose Lactic Acid Calcium Phosphorus Magnesium AST ALT Lactate Dehydrogenase Total Bilirubin Direct Bilirubin CK-MB (CK-2) C-Reactive Protein NT-Pro-B Natriuret Pep Total Protein Albumin Arterial Blood Glucose Urine WBC (Auto) Urine Creatinine 12/22/19 12/22/19 12/22/19 05:18 12:32 12:43 WBC RBC Hgb Hct MCHC RDW MCV MCH Lymph % (Auto) Bennett % (Auto) Bennett # Eos # Lymph # (Auto) Bennett # (Auto) Eos # (Auto) Seg Neutrophils % Seg Neuts % (Manual) Baso # (Auto) Lymphocytes % (Manual) Monocytes % (Manual) Eosinophils % (Manual) Basophils % (Manual) Seg Neutrophils # Seg Neutrophils # Man Lymphocytes # (Manual) Monocytes # (Manual) Eosinophils # (Manual) Nucleated RBC % Basophils # (Manual) PT INR APTT Heparin Anti-Xa Level 0.18 L ABG pH POC ABG pO2 ABG pO2 ABG HCO3 ABG O2 Saturation ABG Base Excess POC ABG pCO2 ABG Hemoglobin ABG Oxyhemoglobin ABG Chloride ABG Glucose Oxyhemoglobin Sodium Potassium Chloride Carbon Dioxide BUN Creatinine Glucose POC Glucose 131 H 208 H Lactic Acid Calcium Phosphorus Magnesium AST ALT Lactate Dehydrogenase Total Bilirubin Direct Bilirubin CK-MB (CK-2) C-Reactive Protein NT-Pro-B Natriuret Pep Total Protein Albumin Arterial Blood Glucose Urine WBC (Auto) Urine Creatinine 12/22/19 12/22/19 12/23/19 17:44 23:20 03:51 WBC 15.2 H RBC 3.43 L Hgb 9.6 L Hct 30.3 L MCHC RDW 15.9 H MCV MCH Lymph % (Auto) Bennett % (Auto) Bennett # Eos # Lymph # (Auto) Bennett # (Auto) Eos # (Auto) Seg Neutrophils % Seg Neuts % (Manual) Baso # (Auto) Lymphocytes % (Manual) Monocytes % (Manual) Eosinophils % (Manual) Basophils % (Manual) Seg Neutrophils # Seg Neutrophils # Man Lymphocytes # (Manual) Monocytes # (Manual) Eosinophils # (Manual) Nucleated RBC % Basophils # (Manual) PT INR APTT Heparin Anti-Xa Level ABG pH POC ABG pO2 ABG pO2 ABG HCO3 ABG O2 Saturation ABG Base Excess POC ABG pCO2 ABG Hemoglobin ABG Oxyhemoglobin ABG Chloride ABG Glucose Oxyhemoglobin Sodium Potassium Chloride Carbon Dioxide BUN Creatinine Glucose POC Glucose 209 H 119 H Lactic Acid Calcium Phosphorus Magnesium AST ALT Lactate Dehydrogenase Total Bilirubin Direct Bilirubin CK-MB (CK-2) C-Reactive Protein NT-Pro-B Natriuret Pep Total Protein Albumin Arterial Blood Glucose Urine WBC (Auto) Urine Creatinine 12/23/19 12/23/19 12/23/19 03:51 05:31 12:09 WBC RBC Hgb Hct MCHC RDW MCV MCH Lymph % (Auto) Bennett % (Auto) Bennett # Eos # Lymph # (Auto) Bennett # (Auto) Eos # (Auto) Seg Neutrophils % Seg Neuts % (Manual) Baso # (Auto) Lymphocytes % (Manual) Monocytes % (Manual) Eosinophils % (Manual) Basophils % (Manual) Seg Neutrophils # Seg Neutrophils # Man Lymphocytes # (Manual) Monocytes # (Manual) Eosinophils # (Manual) Nucleated RBC % Basophils # (Manual) PT INR APTT Heparin Anti-Xa Level ABG pH POC ABG pO2 ABG pO2 ABG HCO3 ABG O2 Saturation ABG Base Excess POC ABG pCO2 ABG Hemoglobin ABG Oxyhemoglobin ABG Chloride ABG Glucose Oxyhemoglobin Sodium Potassium Chloride 97.2 L Carbon Dioxide 31 H BUN 23 H Creatinine 0.6 L Glucose 153 H POC Glucose 149 H 144 H Lactic Acid Calcium Phosphorus Magnesium AST ALT Lactate Dehydrogenase Total Bilirubin Direct Bilirubin CK-MB (CK-2) C-Reactive Protein NT-Pro-B Natriuret Pep Total Protein Albumin Arterial Blood Glucose Urine WBC (Auto) Urine Creatinine 12/23/19 12/23/19 12/23/19 15:30 17:49 23:31 WBC RBC Hgb Hct MCHC RDW MCV MCH Lymph % (Auto) Bennett % (Auto) Bennett # Eos # Lymph # (Auto) Bennett # (Auto) Eos # (Auto) Seg Neutrophils % Seg Neuts % (Manual) Baso # (Auto) Lymphocytes % (Manual) Monocytes % (Manual) Eosinophils % (Manual) Basophils % (Manual) Seg Neutrophils # Seg Neutrophils # Man Lymphocytes # (Manual) Monocytes # (Manual) Eosinophils # (Manual) Nucleated RBC % Basophils # (Manual) PT INR APTT Heparin Anti-Xa Level 0.21 L ABG pH POC ABG pO2 ABG pO2 ABG HCO3 ABG O2 Saturation ABG Base Excess POC ABG pCO2 ABG Hemoglobin ABG Oxyhemoglobin ABG Chloride ABG Glucose Oxyhemoglobin Sodium Potassium Chloride Carbon Dioxide BUN Creatinine Glucose POC Glucose 192 H 151 H Lactic Acid Calcium Phosphorus Magnesium AST ALT Lactate Dehydrogenase Total Bilirubin Direct Bilirubin CK-MB (CK-2) C-Reactive Protein NT-Pro-B Natriuret Pep Total Protein Albumin Arterial Blood Glucose Urine WBC (Auto) Urine Creatinine 12/24/19 12/24/19 12/24/19 05:34 12:13 16:50 WBC RBC Hgb Hct MCHC RDW MCV MCH Lymph % (Auto) Bennett % (Auto) Bennett # Eos # Lymph # (Auto) Bennett # (Auto) Eos # (Auto) Seg Neutrophils % Seg Neuts % (Manual) Baso # (Auto) Lymphocytes % (Manual) Monocytes % (Manual) Eosinophils % (Manual) Basophils % (Manual) Seg Neutrophils # Seg Neutrophils # Man Lymphocytes # (Manual) Monocytes # (Manual) Eosinophils # (Manual) Nucleated RBC % Basophils # (Manual) PT INR APTT Heparin Anti-Xa Level 0.16 L ABG pH POC ABG pO2 ABG pO2 ABG HCO3 ABG O2 Saturation ABG Base Excess POC ABG pCO2 ABG Hemoglobin ABG Oxyhemoglobin ABG Chloride ABG Glucose Oxyhemoglobin Sodium Potassium Chloride Carbon Dioxide BUN Creatinine Glucose POC Glucose 145 H 124 H Lactic Acid Calcium Phosphorus Magnesium AST ALT Lactate Dehydrogenase Total Bilirubin Direct Bilirubin CK-MB (CK-2) C-Reactive Protein NT-Pro-B Natriuret Pep Total Protein Albumin Arterial Blood Glucose Urine WBC (Auto) Urine Creatinine 12/24/19 12/25/19 12/25/19 17:53 00:14 04:18 WBC 12.9 H RBC 3.30 L Hgb 9.1 L Hct 28.8 L MCHC RDW 16.4 H MCV MCH Lymph % (Auto) Bennett % (Auto) 7.8 H Bennett # Eos # Lymph # (Auto) Bennett # (Auto) 1.0 H Eos # (Auto) Seg Neutrophils % 75.5 H Seg Neuts % (Manual) Baso # (Auto) Lymphocytes % (Manual) Monocytes % (Manual) Eosinophils % (Manual) Basophils % (Manual) Seg Neutrophils # 9.7 H Seg Neutrophils # Man Lymphocytes # (Manual) Monocytes # (Manual) Eosinophils # (Manual) Nucleated RBC % Basophils # (Manual) PT INR APTT Heparin Anti-Xa Level ABG pH POC ABG pO2 ABG pO2 ABG HCO3 ABG O2 Saturation ABG Base Excess POC ABG pCO2 ABG Hemoglobin ABG Oxyhemoglobin ABG Chloride ABG Glucose Oxyhemoglobin Sodium Potassium Chloride Carbon Dioxide BUN Creatinine Glucose POC Glucose 164 H 148 H Lactic Acid Calcium Phosphorus Magnesium AST ALT Lactate Dehydrogenase Total Bilirubin Direct Bilirubin CK-MB (CK-2) C-Reactive Protein NT-Pro-B Natriuret Pep Total Protein Albumin Arterial Blood Glucose Urine WBC (Auto) Urine Creatinine 12/25/19 12/25/19 12/25/19 04:18 05:38 11:44 WBC RBC Hgb Hct MCHC RDW MCV MCH Lymph % (Auto) Bennett % (Auto) Bennett # Eos # Lymph # (Auto) Bennett # (Auto) Eos # (Auto) Seg Neutrophils % Seg Neuts % (Manual) Baso # (Auto) Lymphocytes % (Manual) Monocytes % (Manual) Eosinophils % (Manual) Basophils % (Manual) Seg Neutrophils # Seg Neutrophils # Man Lymphocytes # (Manual) Monocytes # (Manual) Eosinophils # (Manual) Nucleated RBC % Basophils # (Manual) PT INR APTT Heparin Anti-Xa Level ABG pH POC ABG pO2 ABG pO2 ABG HCO3 ABG O2 Saturation ABG Base Excess POC ABG pCO2 ABG Hemoglobin ABG Oxyhemoglobin ABG Chloride ABG Glucose Oxyhemoglobin Sodium Potassium Chloride Carbon Dioxide 33 H BUN 27 H Creatinine 0.6 L Glucose 132 H POC Glucose 152 H 166 H Lactic Acid Calcium Phosphorus Magnesium AST ALT Lactate Dehydrogenase Total Bilirubin Direct Bilirubin CK-MB (CK-2) C-Reactive Protein NT-Pro-B Natriuret Pep Total Protein Albumin Arterial Blood Glucose Urine WBC (Auto) Urine Creatinine 12/25/19 12/26/19 12/26/19 18:29 00:17 00:18 WBC RBC Hgb Hct MCHC RDW MCV MCH Lymph % (Auto) Bennett % (Auto) Bennett # Eos # Lymph # (Auto) Bennett # (Auto) Eos # (Auto) Seg Neutrophils % Seg Neuts % (Manual) Baso # (Auto) Lymphocytes % (Manual) Monocytes % (Manual) Eosinophils % (Manual) Basophils % (Manual) Seg Neutrophils # Seg Neutrophils # Man Lymphocytes # (Manual) Monocytes # (Manual) Eosinophils # (Manual) Nucleated RBC % Basophils # (Manual) PT INR APTT Heparin Anti-Xa Level ABG pH POC ABG pO2 ABG pO2 ABG HCO3 ABG O2 Saturation ABG Base Excess POC ABG pCO2 ABG Hemoglobin ABG Oxyhemoglobin ABG Chloride ABG Glucose Oxyhemoglobin Sodium Potassium Chloride 97.8 L Carbon Dioxide BUN 25 H Creatinine 0.6 L Glucose 140 H POC Glucose 194 H 151 H Lactic Acid Calcium Phosphorus Magnesium AST ALT Lactate Dehydrogenase Total Bilirubin Direct Bilirubin CK-MB (CK-2) C-Reactive Protein NT-Pro-B Natriuret Pep Total Protein Albumin Arterial Blood Glucose Urine WBC (Auto) Urine Creatinine 12/26/19 12/26/19 12/26/19 05:36 11:41 17:50 WBC RBC Hgb Hct MCHC RDW MCV MCH Lymph % (Auto) Bennett % (Auto) Bennett # Eos # Lymph # (Auto) Bennett # (Auto) Eos # (Auto) Seg Neutrophils % Seg Neuts % (Manual) Baso # (Auto) Lymphocytes % (Manual) Monocytes % (Manual) Eosinophils % (Manual) Basophils % (Manual) Seg Neutrophils # Seg Neutrophils # Man Lymphocytes # (Manual) Monocytes # (Manual) Eosinophils # (Manual) Nucleated RBC % Basophils # (Manual) PT INR APTT Heparin Anti-Xa Level ABG pH POC ABG pO2 ABG pO2 ABG HCO3 ABG O2 Saturation ABG Base Excess POC ABG pCO2 ABG Hemoglobin ABG Oxyhemoglobin ABG Chloride ABG Glucose Oxyhemoglobin Sodium Potassium Chloride Carbon Dioxide BUN Creatinine Glucose POC Glucose 156 H 148 H 139 H Lactic Acid Calcium Phosphorus Magnesium AST ALT Lactate Dehydrogenase Total Bilirubin Direct Bilirubin CK-MB (CK-2) C-Reactive Protein NT-Pro-B Natriuret Pep Total Protein Albumin Arterial Blood Glucose Urine WBC (Auto) Urine Creatinine 12/26/19 12/27/19 12/27/19 23:19 05:34 12:02 WBC RBC Hgb Hct MCHC RDW MCV MCH Lymph % (Auto) Bennett % (Auto) Bennett # Eos # Lymph # (Auto) Bennett # (Auto) Eos # (Auto) Seg Neutrophils % Seg Neuts % (Manual) Baso # (Auto) Lymphocytes % (Manual) Monocytes % (Manual) Eosinophils % (Manual) Basophils % (Manual) Seg Neutrophils # Seg Neutrophils # Man Lymphocytes # (Manual) Monocytes # (Manual) Eosinophils # (Manual) Nucleated RBC % Basophils # (Manual) PT INR APTT Heparin Anti-Xa Level ABG pH POC ABG pO2 ABG pO2 ABG HCO3 ABG O2 Saturation ABG Base Excess POC ABG pCO2 ABG Hemoglobin ABG Oxyhemoglobin ABG Chloride ABG Glucose Oxyhemoglobin Sodium Potassium Chloride Carbon Dioxide BUN Creatinine Glucose POC Glucose 161 H 145 H 157 H Lactic Acid Calcium Phosphorus Magnesium AST ALT Lactate Dehydrogenase Total Bilirubin Direct Bilirubin CK-MB (CK-2) C-Reactive Protein NT-Pro-B Natriuret Pep Total Protein Albumin Arterial Blood Glucose Urine WBC (Auto) Urine Creatinine 12/27/19 12/27/19 12/27/19 17:35 20:11 23:00 WBC RBC Hgb Hct MCHC RDW MCV MCH Lymph % (Auto) Bennett % (Auto) Bennett # Eos # Lymph # (Auto) Bennett # (Auto) Eos # (Auto) Seg Neutrophils % Seg Neuts % (Manual) Baso # (Auto) Lymphocytes % (Manual) Monocytes % (Manual) Eosinophils % (Manual) Basophils % (Manual) Seg Neutrophils # Seg Neutrophils # Man Lymphocytes # (Manual) Monocytes # (Manual) Eosinophils # (Manual) Nucleated RBC % Basophils # (Manual) PT INR APTT Heparin Anti-Xa Level 0.19 L ABG pH POC ABG pO2 ABG pO2 ABG HCO3 ABG O2 Saturation ABG Base Excess POC ABG pCO2 ABG Hemoglobin ABG Oxyhemoglobin ABG Chloride ABG Glucose Oxyhemoglobin Sodium Potassium Chloride Carbon Dioxide BUN Creatinine Glucose POC Glucose 158 H 155 H Lactic Acid Calcium Phosphorus Magnesium AST ALT Lactate Dehydrogenase Total Bilirubin Direct Bilirubin CK-MB (CK-2) C-Reactive Protein NT-Pro-B Natriuret Pep Total Protein Albumin Arterial Blood Glucose Urine WBC (Auto) Urine Creatinine 12/27/19 12/28/19 12/28/19 23:45 02:41 02:41 WBC 13.0 H RBC 3.48 L Hgb 9.5 L Hct 30.6 L MCHC 31 L RDW 16.6 H MCV MCH 27 L Lymph % (Auto) 13.0 L Bennett % (Auto) 8.0 H Bennett # Eos # Lymph # (Auto) Bennett # (Auto) 1.0 H Eos # (Auto) Seg Neutrophils % 76.3 H Seg Neuts % (Manual) Baso # (Auto) Lymphocytes % (Manual) Monocytes % (Manual) Eosinophils % (Manual) Basophils % (Manual) Seg Neutrophils # 9.9 H Seg Neutrophils # Man Lymphocytes # (Manual) Monocytes # (Manual) Eosinophils # (Manual) Nucleated RBC % Basophils # (Manual) PT INR APTT Heparin Anti-Xa Level ABG pH POC ABG pO2 ABG pO2 ABG HCO3 ABG O2 Saturation ABG Base Excess POC ABG pCO2 ABG Hemoglobin ABG Oxyhemoglobin ABG Chloride ABG Glucose Oxyhemoglobin Sodium Potassium Chloride Carbon Dioxide BUN 22 H Creatinine 0.6 L Glucose 101 H POC Glucose 130 H Lactic Acid Calcium Phosphorus Magnesium AST ALT Lactate Dehydrogenase Total Bilirubin Direct Bilirubin CK-MB (CK-2) C-Reactive Protein NT-Pro-B Natriuret Pep Total Protein Albumin Arterial Blood Glucose Urine WBC (Auto) Urine Creatinine 12/28/19 12/28/19 12/28/19 06:00 12:34 18:13 WBC RBC Hgb Hct MCHC RDW MCV MCH Lymph % (Auto) Bennett % (Auto) Bennett # Eos # Lymph # (Auto) Bennett # (Auto) Eos # (Auto) Seg Neutrophils % Seg Neuts % (Manual) Baso # (Auto) Lymphocytes % (Manual) Monocytes % (Manual) Eosinophils % (Manual) Basophils % (Manual) Seg Neutrophils # Seg Neutrophils # Man Lymphocytes # (Manual) Monocytes # (Manual) Eosinophils # (Manual) Nucleated RBC % Basophils # (Manual) PT INR APTT Heparin Anti-Xa Level ABG pH POC ABG pO2 ABG pO2 ABG HCO3 ABG O2 Saturation ABG Base Excess POC ABG pCO2 ABG Hemoglobin ABG Oxyhemoglobin ABG Chloride ABG Glucose Oxyhemoglobin Sodium Potassium Chloride Carbon Dioxide BUN Creatinine Glucose POC Glucose 150 H 161 H 128 H Lactic Acid Calcium Phosphorus Magnesium AST ALT Lactate Dehydrogenase Total Bilirubin Direct Bilirubin CK-MB (CK-2) C-Reactive Protein NT-Pro-B Natriuret Pep Total Protein Albumin Arterial Blood Glucose Urine WBC (Auto) Urine Creatinine 12/28/19 12/29/19 12/29/19 23:36 05:21 11:40 WBC RBC Hgb Hct MCHC RDW MCV MCH Lymph % (Auto) Bennett % (Auto) Bennett # Eos # Lymph # (Auto) Bennett # (Auto) Eos # (Auto) Seg Neutrophils % Seg Neuts % (Manual) Baso # (Auto) Lymphocytes % (Manual) Monocytes % (Manual) Eosinophils % (Manual) Basophils % (Manual) Seg Neutrophils # Seg Neutrophils # Man Lymphocytes # (Manual) Monocytes # (Manual) Eosinophils # (Manual) Nucleated RBC % Basophils # (Manual) PT INR APTT Heparin Anti-Xa Level ABG pH POC ABG pO2 ABG pO2 ABG HCO3 ABG O2 Saturation ABG Base Excess POC ABG pCO2 ABG Hemoglobin ABG Oxyhemoglobin ABG Chloride ABG Glucose Oxyhemoglobin Sodium Potassium Chloride Carbon Dioxide BUN Creatinine Glucose POC Glucose 137 H 136 H 166 H Lactic Acid Calcium Phosphorus Magnesium AST ALT Lactate Dehydrogenase Total Bilirubin Direct Bilirubin CK-MB (CK-2) C-Reactive Protein NT-Pro-B Natriuret Pep Total Protein Albumin Arterial Blood Glucose Urine WBC (Auto) Urine Creatinine 12/29/19 12/29/19 12/29/19 17:23 19:21 23:38 WBC RBC Hgb Hct MCHC RDW MCV MCH Lymph % (Auto) Bennett % (Auto) Bennett # Eos # Lymph # (Auto) Bennett # (Auto) Eos # (Auto) Seg Neutrophils % Seg Neuts % (Manual) Baso # (Auto) Lymphocytes % (Manual) Monocytes % (Manual) Eosinophils % (Manual) Basophils % (Manual) Seg Neutrophils # Seg Neutrophils # Man Lymphocytes # (Manual) Monocytes # (Manual) Eosinophils # (Manual) Nucleated RBC % Basophils # (Manual) PT INR APTT Heparin Anti-Xa Level 0.20 L ABG pH POC ABG pO2 ABG pO2 ABG HCO3 ABG O2 Saturation ABG Base Excess POC ABG pCO2 ABG Hemoglobin ABG Oxyhemoglobin ABG Chloride ABG Glucose Oxyhemoglobin Sodium Potassium Chloride Carbon Dioxide BUN Creatinine Glucose POC Glucose 144 H 141 H Lactic Acid Calcium Phosphorus Magnesium AST ALT Lactate Dehydrogenase Total Bilirubin Direct Bilirubin CK-MB (CK-2) C-Reactive Protein NT-Pro-B Natriuret Pep Total Protein Albumin Arterial Blood Glucose Urine WBC (Auto) Urine Creatinine 12/30/19 12/30/19 12/30/19 03:58 03:58 04:59 WBC RBC 3.54 L Hgb 9.8 L Hct 30.7 L MCHC RDW 16.8 H MCV MCH Lymph % (Auto) Bennett % (Auto) Bennett # Eos # Lymph # (Auto) Bennett # (Auto) Eos # (Auto) Seg Neutrophils % Seg Neuts % (Manual) Baso # (Auto) Lymphocytes % (Manual) Monocytes % (Manual) Eosinophils % (Manual) Basophils % (Manual) Seg Neutrophils # Seg Neutrophils # Man Lymphocytes # (Manual) Monocytes # (Manual) Eosinophils # (Manual) Nucleated RBC % Basophils # (Manual) PT INR APTT Heparin Anti-Xa Level ABG pH POC ABG pO2 ABG pO2 ABG HCO3 29.8 H ABG O2 Saturation ABG Base Excess 4.8 H POC ABG pCO2 ABG Hemoglobin 11.2 L ABG Oxyhemoglobin ABG Chloride ABG Glucose Oxyhemoglobin 93.8 L Sodium Potassium Chloride 97.8 L Carbon Dioxide BUN 26 H Creatinine Glucose 168 H POC Glucose Lactic Acid Calcium Phosphorus Magnesium AST ALT Lactate Dehydrogenase Total Bilirubin Direct Bilirubin CK-MB (CK-2) C-Reactive Protein NT-Pro-B Natriuret Pep Total Protein Albumin Arterial Blood Glucose Urine WBC (Auto) Urine Creatinine 12/30/19 12/30/19 12/30/19 05:45 11:34 17:28 WBC RBC Hgb Hct MCHC RDW MCV MCH Lymph % (Auto) Bennett % (Auto) Bennett # Eos # Lymph # (Auto) Bennett # (Auto) Eos # (Auto) Seg Neutrophils % Seg Neuts % (Manual) Baso # (Auto) Lymphocytes % (Manual) Monocytes % (Manual) Eosinophils % (Manual) Basophils % (Manual) Seg Neutrophils # Seg Neutrophils # Man Lymphocytes # (Manual) Monocytes # (Manual) Eosinophils # (Manual) Nucleated RBC % Basophils # (Manual) PT INR APTT Heparin Anti-Xa Level ABG pH POC ABG pO2 ABG pO2 ABG HCO3 ABG O2 Saturation ABG Base Excess POC ABG pCO2 ABG Hemoglobin ABG Oxyhemoglobin ABG Chloride ABG Glucose Oxyhemoglobin Sodium Potassium Chloride Carbon Dioxide BUN Creatinine Glucose POC Glucose 163 H 180 H 150 H Lactic Acid Calcium Phosphorus Magnesium AST ALT Lactate Dehydrogenase Total Bilirubin Direct Bilirubin CK-MB (CK-2) C-Reactive Protein NT-Pro-B Natriuret Pep Total Protein Albumin Arterial Blood Glucose Urine WBC (Auto) Urine Creatinine 12/30/19 12/31/19 12/31/19 23:43 04:55 05:07 WBC RBC Hgb Hct MCHC RDW MCV MCH Lymph % (Auto) Bennett % (Auto) Bennett # Eos # Lymph # (Auto) Bennett # (Auto) Eos # (Auto) Seg Neutrophils % Seg Neuts % (Manual) Baso # (Auto) Lymphocytes % (Manual) Monocytes % (Manual) Eosinophils % (Manual) Basophils % (Manual) Seg Neutrophils # Seg Neutrophils # Man Lymphocytes # (Manual) Monocytes # (Manual) Eosinophils # (Manual) Nucleated RBC % Basophils # (Manual) PT INR APTT Heparin Anti-Xa Level ABG pH POC ABG pO2 ABG pO2 ABG HCO3 ABG O2 Saturation ABG Base Excess POC ABG pCO2 ABG Hemoglobin ABG Oxyhemoglobin ABG Chloride ABG Glucose Oxyhemoglobin Sodium Potassium 5.6 H D Chloride Carbon Dioxide BUN 33 H Creatinine Glucose 131 H POC Glucose 142 H 134 H Lactic Acid Calcium Phosphorus Magnesium AST ALT Lactate Dehydrogenase Total Bilirubin Direct Bilirubin CK-MB (CK-2) C-Reactive Protein NT-Pro-B Natriuret Pep Total Protein Albumin Arterial Blood Glucose Urine WBC (Auto) Urine Creatinine 12/31/19 12/31/19 12/31/19 11:30 17:19 17:36 WBC RBC Hgb Hct MCHC RDW MCV MCH Lymph % (Auto) Bennett % (Auto) Bennett # Eos # Lymph # (Auto) Bennett # (Auto) Eos # (Auto) Seg Neutrophils % Seg Neuts % (Manual) Baso # (Auto) Lymphocytes % (Manual) Monocytes % (Manual) Eosinophils % (Manual) Basophils % (Manual) Seg Neutrophils # Seg Neutrophils # Man Lymphocytes # (Manual) Monocytes # (Manual) Eosinophils # (Manual) Nucleated RBC % Basophils # (Manual) PT INR APTT Heparin Anti-Xa Level ABG pH POC ABG pO2 ABG pO2 ABG HCO3 ABG O2 Saturation ABG Base Excess POC ABG pCO2 ABG Hemoglobin ABG Oxyhemoglobin ABG Chloride ABG Glucose Oxyhemoglobin Sodium Potassium Chloride Carbon Dioxide BUN 35 H Creatinine Glucose 156 H POC Glucose 158 H 181 H Lactic Acid Calcium Phosphorus Magnesium AST ALT Lactate Dehydrogenase Total Bilirubin Direct Bilirubin CK-MB (CK-2) C-Reactive Protein NT-Pro-B Natriuret Pep Total Protein Albumin Arterial Blood Glucose Urine WBC (Auto) Urine Creatinine 12/31/19 12/31/19 12/31/19 18:16 19:41 21:53 WBC RBC Hgb Hct MCHC RDW MCV MCH Lymph % (Auto) Bennett % (Auto) Bennett # Eos # Lymph # (Auto) Bennett # (Auto) Eos # (Auto) Seg Neutrophils % Seg Neuts % (Manual) Baso # (Auto) Lymphocytes % (Manual) Monocytes % (Manual) Eosinophils % (Manual) Basophils % (Manual) Seg Neutrophils # Seg Neutrophils # Man Lymphocytes # (Manual) Monocytes # (Manual) Eosinophils # (Manual) Nucleated RBC % Basophils # (Manual) PT INR APTT Heparin Anti-Xa Level 0.20 L ABG pH POC ABG pO2 ABG pO2 ABG HCO3 ABG O2 Saturation ABG Base Excess POC ABG pCO2 ABG Hemoglobin ABG Oxyhemoglobin ABG Chloride ABG Glucose Oxyhemoglobin Sodium Potassium Chloride Carbon Dioxide BUN 34 H Creatinine Glucose 169 H POC Glucose 141 H Lactic Acid Calcium Phosphorus Magnesium AST ALT Lactate Dehydrogenase Total Bilirubin Direct Bilirubin CK-MB (CK-2) C-Reactive Protein NT-Pro-B Natriuret Pep Total Protein Albumin Arterial Blood Glucose Urine WBC (Auto) Urine Creatinine 12/31/19 01/01/20 01/01/20 23:51 05:17 10:40 WBC RBC Hgb Hct MCHC RDW MCV MCH Lymph % (Auto) Bennett % (Auto) Bennett # Eos # Lymph # (Auto) Bennett # (Auto) Eos # (Auto) Seg Neutrophils % Seg Neuts % (Manual) Baso # (Auto) Lymphocytes % (Manual) Monocytes % (Manual) Eosinophils % (Manual) Basophils % (Manual) Seg Neutrophils # Seg Neutrophils # Man Lymphocytes # (Manual) Monocytes # (Manual) Eosinophils # (Manual) Nucleated RBC % Basophils # (Manual) PT INR APTT Heparin Anti-Xa Level ABG pH POC ABG pO2 ABG pO2 ABG HCO3 ABG O2 Saturation ABG Base Excess POC ABG pCO2 ABG Hemoglobin ABG Oxyhemoglobin ABG Chloride ABG Glucose Oxyhemoglobin Sodium Potassium Chloride Carbon Dioxide BUN 31 H Creatinine 0.7 L Glucose 137 H POC Glucose 131 H 155 H Lactic Acid Calcium Phosphorus Magnesium AST 73 H ALT 97 H Lactate Dehydrogenase Total Bilirubin Direct Bilirubin CK-MB (CK-2) C-Reactive Protein NT-Pro-B Natriuret Pep 3866 H Total Protein Albumin 2.8 L Arterial Blood Glucose Urine WBC (Auto) Urine Creatinine 01/01/20 01/01/20 01/01/20 12:26 15:33 17:53 WBC 14.3 H RBC 3.35 L Hgb 9.1 L Hct 28.8 L MCHC RDW 17.0 H MCV MCH 27 L Lymph % (Auto) 7.0 L Bennett % (Auto) 7.6 H Bennett # Eos # Lymph # (Auto) 1.0 L Bennett # (Auto) 1.1 H Eos # (Auto) Seg Neutrophils % 83.3 H Seg Neuts % (Manual) Baso # (Auto) Lymphocytes % (Manual) Monocytes % (Manual) Eosinophils % (Manual) Basophils % (Manual) Seg Neutrophils # 12.0 H Seg Neutrophils # Man Lymphocytes # (Manual) Monocytes # (Manual) Eosinophils # (Manual) Nucleated RBC % Basophils # (Manual) PT INR APTT Heparin Anti-Xa Level ABG pH POC ABG pO2 ABG pO2 ABG HCO3 ABG O2 Saturation ABG Base Excess POC ABG pCO2 ABG Hemoglobin ABG Oxyhemoglobin ABG Chloride ABG Glucose Oxyhemoglobin Sodium Potassium Chloride Carbon Dioxide BUN Creatinine Glucose POC Glucose 128 H 128 H Lactic Acid Calcium Phosphorus Magnesium AST ALT Lactate Dehydrogenase Total Bilirubin Direct Bilirubin CK-MB (CK-2) C-Reactive Protein NT-Pro-B Natriuret Pep Total Protein Albumin Arterial Blood Glucose Urine WBC (Auto) Urine Creatinine 01/01/20 01/02/20 01/02/20 23:04 05:39 07:00 WBC RBC Hgb Hct MCHC RDW MCV MCH Lymph % (Auto) Bennett % (Auto) Bennett # Eos # Lymph # (Auto) Bennett # (Auto) Eos # (Auto) Seg Neutrophils % Seg Neuts % (Manual) Baso # (Auto) Lymphocytes % (Manual) Monocytes % (Manual) Eosinophils % (Manual) Basophils % (Manual) Seg Neutrophils # Seg Neutrophils # Man Lymphocytes # (Manual) Monocytes # (Manual) Eosinophils # (Manual) Nucleated RBC % Basophils # (Manual) PT INR APTT Heparin Anti-Xa Level 0.13 L ABG pH POC ABG pO2 ABG pO2 ABG HCO3 ABG O2 Saturation ABG Base Excess POC ABG pCO2 ABG Hemoglobin ABG Oxyhemoglobin ABG Chloride ABG Glucose Oxyhemoglobin Sodium Potassium Chloride Carbon Dioxide BUN Creatinine Glucose POC Glucose 120 H 169 H Lactic Acid Calcium Phosphorus Magnesium AST ALT Lactate Dehydrogenase Total Bilirubin Direct Bilirubin CK-MB (CK-2) C-Reactive Protein NT-Pro-B Natriuret Pep Total Protein Albumin Arterial Blood Glucose Urine WBC (Auto) Urine Creatinine 01/02/20 01/02/20 01/02/20 12:15 14:06 17:58 WBC RBC Hgb Hct MCHC RDW MCV MCH Lymph % (Auto) Bennett % (Auto) Bennett # Eos # Lymph # (Auto) Bennett # (Auto) Eos # (Auto) Seg Neutrophils % Seg Neuts % (Manual) Baso # (Auto) Lymphocytes % (Manual) Monocytes % (Manual) Eosinophils % (Manual) Basophils % (Manual) Seg Neutrophils # Seg Neutrophils # Man Lymphocytes # (Manual) Monocytes # (Manual) Eosinophils # (Manual) Nucleated RBC % Basophils # (Manual) PT INR APTT Heparin Anti-Xa Level < 0.10 L ABG pH POC ABG pO2 ABG pO2 ABG HCO3 ABG O2 Saturation ABG Base Excess POC ABG pCO2 ABG Hemoglobin ABG Oxyhemoglobin ABG Chloride ABG Glucose Oxyhemoglobin Sodium Potassium Chloride Carbon Dioxide BUN Creatinine Glucose POC Glucose 190 H 198 H Lactic Acid Calcium Phosphorus Magnesium AST ALT Lactate Dehydrogenase Total Bilirubin Direct Bilirubin CK-MB (CK-2) C-Reactive Protein NT-Pro-B Natriuret Pep Total Protein Albumin Arterial Blood Glucose Urine WBC (Auto) Urine Creatinine 01/02/20 01/02/20 01/03/20 21:43 23:33 05:42 WBC RBC Hgb Hct MCHC RDW MCV MCH Lymph % (Auto) Bennett % (Auto) Bennett # Eos # Lymph # (Auto) Bennett # (Auto) Eos # (Auto) Seg Neutrophils % Seg Neuts % (Manual) Baso # (Auto) Lymphocytes % (Manual) Monocytes % (Manual) Eosinophils % (Manual) Basophils % (Manual) Seg Neutrophils # Seg Neutrophils # Man Lymphocytes # (Manual) Monocytes # (Manual) Eosinophils # (Manual) Nucleated RBC % Basophils # (Manual) PT INR APTT Heparin Anti-Xa Level 0.10 L ABG pH POC ABG pO2 ABG pO2 ABG HCO3 ABG O2 Saturation ABG Base Excess POC ABG pCO2 ABG Hemoglobin ABG Oxyhemoglobin ABG Chloride ABG Glucose Oxyhemoglobin Sodium Potassium Chloride Carbon Dioxide BUN Creatinine Glucose POC Glucose 180 H 163 H Lactic Acid Calcium Phosphorus Magnesium AST ALT Lactate Dehydrogenase Total Bilirubin Direct Bilirubin CK-MB (CK-2) C-Reactive Protein NT-Pro-B Natriuret Pep Total Protein Albumin Arterial Blood Glucose Urine WBC (Auto) Urine Creatinine 10/02/1101/03/20 01/03/20 06:50 07:25 07:45 WBC 12.1 H RBC 3.35 L Hgb 9.0 L Hct 28.9 L MCHC 31 L RDW 16.6 H MCV MCH 27 L Lymph % (Auto) 13.0 L Bennett % (Auto) 8.6 H Bennett # Eos # Lymph # (Auto) Bennett # (Auto) 1.0 H Eos # (Auto) Seg Neutrophils % 75.9 H Seg Neuts % (Manual) Baso # (Auto) Lymphocytes % (Manual) Monocytes % (Manual) Eosinophils % (Manual) Basophils % (Manual) Seg Neutrophils # 9.2 H Seg Neutrophils # Man Lymphocytes # (Manual) Monocytes # (Manual) Eosinophils # (Manual) Nucleated RBC % Basophils # (Manual) PT INR APTT Heparin Anti-Xa Level 0.29 L ABG pH POC ABG pO2 ABG pO2 ABG HCO3 ABG O2 Saturation ABG Base Excess POC ABG pCO2 ABG Hemoglobin ABG Oxyhemoglobin ABG Chloride ABG Glucose Oxyhemoglobin Sodium Potassium 3.3 L D Chloride Carbon Dioxide 35 H D BUN 23 H Creatinine 0.6 L Glucose 149 H POC Glucose Lactic Acid Calcium Phosphorus Magnesium AST ALT 88 H Lactate Dehydrogenase Total Bilirubin Direct Bilirubin CK-MB (CK-2) C-Reactive Protein NT-Pro-B Natriuret Pep Total Protein 6.2 L Albumin 2.9 L Arterial Blood Glucose Urine WBC (Auto) Urine Creatinine 01/03/20 01/03/20 01/03/20 12:05 17:42 18:30 WBC RBC Hgb Hct MCHC RDW MCV MCH Lymph % (Auto) Bennett % (Auto) Bennett # Eos # Lymph # (Auto) Bennett # (Auto) Eos # (Auto) Seg Neutrophils % Seg Neuts % (Manual) Baso # (Auto) Lymphocytes % (Manual) Monocytes % (Manual) Eosinophils % (Manual) Basophils % (Manual) Seg Neutrophils # Seg Neutrophils # Man Lymphocytes # (Manual) Monocytes # (Manual) Eosinophils # (Manual) Nucleated RBC % Basophils # (Manual) PT INR APTT Heparin Anti-Xa Level ABG pH POC ABG pO2 ABG pO2 70.7 L ABG HCO3 36.1 H ABG O2 Saturation 94.4 L ABG Base Excess 10.0 H POC ABG pCO2 ABG Hemoglobin 9.7 L ABG Oxyhemoglobin ABG Chloride ABG Glucose Oxyhemoglobin 91.8 L Sodium Potassium Chloride Carbon Dioxide BUN Creatinine Glucose POC Glucose 128 H 132 H Lactic Acid Calcium Phosphorus Magnesium AST ALT Lactate Dehydrogenase Total Bilirubin Direct Bilirubin CK-MB (CK-2) C-Reactive Protein NT-Pro-B Natriuret Pep Total Protein Albumin Arterial Blood Glucose Urine WBC (Auto) Urine Creatinine 01/04/20 01/04/20 01/04/20 00:10 04:26 05:23 WBC RBC Hgb Hct MCHC RDW MCV MCH Lymph % (Auto) Bennett % (Auto) Bennett # Eos # Lymph # (Auto) Bennett # (Auto) Eos # (Auto) Seg Neutrophils % Seg Neuts % (Manual) Baso # (Auto) Lymphocytes % (Manual) Monocytes % (Manual) Eosinophils % (Manual) Basophils % (Manual) Seg Neutrophils # Seg Neutrophils # Man Lymphocytes # (Manual) Monocytes # (Manual) Eosinophils # (Manual) Nucleated RBC % Basophils # (Manual) PT INR APTT Heparin Anti-Xa Level 0.16 L ABG pH POC ABG pO2 ABG pO2 ABG HCO3 ABG O2 Saturation ABG Base Excess POC ABG pCO2 ABG Hemoglobin ABG Oxyhemoglobin ABG Chloride ABG Glucose Oxyhemoglobin Sodium Potassium Chloride Carbon Dioxide BUN Creatinine Glucose POC Glucose 121 H 119 H Lactic Acid Calcium Phosphorus Magnesium AST ALT Lactate Dehydrogenase Total Bilirubin Direct Bilirubin CK-MB (CK-2) C-Reactive Protein NT-Pro-B Natriuret Pep Total Protein Albumin Arterial Blood Glucose Urine WBC (Auto) Urine Creatinine 01/04/20 01/04/20 01/04/20 09:50 09:50 12:18 WBC 15.4 H RBC 3.30 L Hgb 8.7 L Hct 28.2 L MCHC 31 L RDW 17.0 H MCV MCH 26 L Lymph % (Auto) Bennett % (Auto) 7.6 H Bennett # Eos # Lymph # (Auto) Bennett # (Auto) 1.2 H Eos # (Auto) Seg Neutrophils % 75.4 H Seg Neuts % (Manual) Baso # (Auto) Lymphocytes % (Manual) Monocytes % (Manual) Eosinophils % (Manual) Basophils % (Manual) Seg Neutrophils # 11.6 H Seg Neutrophils # Man Lymphocytes # (Manual) Monocytes # (Manual) Eosinophils # (Manual) Nucleated RBC % Basophils # (Manual) PT INR APTT Heparin Anti-Xa Level ABG pH POC ABG pO2 ABG pO2 ABG HCO3 ABG O2 Saturation ABG Base Excess POC ABG pCO2 ABG Hemoglobin ABG Oxyhemoglobin ABG Chloride ABG Glucose Oxyhemoglobin Sodium 148 H Potassium 3.5 L Chloride Carbon Dioxide 32 H BUN Creatinine 0.6 L Glucose 114 H POC Glucose 111 H Lactic Acid Calcium Phosphorus Magnesium AST ALT 59 H Lactate Dehydrogenase Total Bilirubin Direct Bilirubin CK-MB (CK-2) C-Reactive Protein NT-Pro-B Natriuret Pep Total Protein Albumin 2.6 L Arterial Blood Glucose Urine WBC (Auto) Urine Creatinine 01/05/20 01/05/20 01/05/20 04:05 04:05 05:19 WBC 11.7 H RBC 3.50 L Hgb 9.3 L Hct 29.9 L MCHC 31 L RDW 16.6 H MCV MCH 27 L Lymph % (Auto) 13.1 L Bennett % (Auto) 9.7 H Bennett # Eos # Lymph # (Auto) Bennett # (Auto) 1.1 H Eos # (Auto) Seg Neutrophils % 74.0 H Seg Neuts % (Manual) Baso # (Auto) Lymphocytes % (Manual) Monocytes % (Manual) Eosinophils % (Manual) Basophils % (Manual) Seg Neutrophils # 8.6 H Seg Neutrophils # Man Lymphocytes # (Manual) Monocytes # (Manual) Eosinophils # (Manual) Nucleated RBC % Basophils # (Manual) PT INR APTT Heparin Anti-Xa Level ABG pH POC ABG pO2 ABG pO2 ABG HCO3 ABG O2 Saturation ABG Base Excess POC ABG pCO2 ABG Hemoglobin ABG Oxyhemoglobin ABG Chloride ABG Glucose Oxyhemoglobin Sodium 151 H Potassium Chloride Carbon Dioxide 34 H BUN Creatinine 0.7 L Glucose POC Glucose 112 H Lactic Acid Calcium Phosphorus Magnesium AST ALT 59 H Lactate Dehydrogenase Total Bilirubin Direct Bilirubin CK-MB (CK-2) C-Reactive Protein NT-Pro-B Natriuret Pep Total Protein 5.8 L Albumin 2.6 L Arterial Blood Glucose Urine WBC (Auto) Urine Creatinine 01/05/20 01/06/20 01/06/20 16:04 00:23 04:44 WBC RBC 3.36 L Hgb 8.9 L Hct 28.7 L MCHC 31 L RDW 16.9 H MCV MCH 26 L Lymph % (Auto) Bennett % (Auto) 9.4 H Bennett # Eos # Lymph # (Auto) Bennett # (Auto) Eos # (Auto) Seg Neutrophils % Seg Neuts % (Manual) Baso # (Auto) Lymphocytes % (Manual) Monocytes % (Manual) Eosinophils % (Manual) Basophils % (Manual) Seg Neutrophils # Seg Neutrophils # Man Lymphocytes # (Manual) Monocytes # (Manual) Eosinophils # (Manual) Nucleated RBC % Basophils # (Manual) PT INR APTT Heparin Anti-Xa Level ABG pH POC ABG pO2 ABG pO2 ABG HCO3 ABG O2 Saturation ABG Base Excess POC ABG pCO2 ABG Hemoglobin ABG Oxyhemoglobin ABG Chloride ABG Glucose Oxyhemoglobin Sodium 151 H Potassium 3.2 L Chloride Carbon Dioxide 34 H BUN Creatinine 0.6 L Glucose POC Glucose 107 H Lactic Acid Calcium Phosphorus Magnesium AST ALT Lactate Dehydrogenase Total Bilirubin Direct Bilirubin CK-MB (CK-2) C-Reactive Protein NT-Pro-B Natriuret Pep Total Protein Albumin Arterial Blood Glucose Urine WBC (Auto) Urine Creatinine 01/06/20 01/06/20 01/06/20 04:44 05:33 12:04 WBC RBC Hgb Hct MCHC RDW MCV MCH Lymph % (Auto) Bennett % (Auto) Bennett # Eos # Lymph # (Auto) Bennett # (Auto) Eos # (Auto) Seg Neutrophils % Seg Neuts % (Manual) Baso # (Auto) Lymphocytes % (Manual) Monocytes % (Manual) Eosinophils % (Manual) Basophils % (Manual) Seg Neutrophils # Seg Neutrophils # Man Lymphocytes # (Manual) Monocytes # (Manual) Eosinophils # (Manual) Nucleated RBC % Basophils # (Manual) PT INR APTT Heparin Anti-Xa Level ABG pH POC ABG pO2 ABG pO2 ABG HCO3 ABG O2 Saturation ABG Base Excess POC ABG pCO2 ABG Hemoglobin ABG Oxyhemoglobin ABG Chloride ABG Glucose Oxyhemoglobin Sodium 151 H Potassium 3.4 L Chloride Carbon Dioxide 33 H BUN Creatinine 0.6 L Glucose 118 H POC Glucose 118 H 123 H Lactic Acid Calcium Phosphorus Magnesium AST ALT Lactate Dehydrogenase Total Bilirubin Direct Bilirubin CK-MB (CK-2) C-Reactive Protein NT-Pro-B Natriuret Pep Total Protein 6.2 L Albumin 2.6 L Arterial Blood Glucose Urine WBC (Auto) Urine Creatinine 01/06/20 01/07/20 01/07/20 17:54 00:06 04:10 WBC RBC 3.42 L Hgb 8.9 L Hct 29.0 L MCHC 31 L RDW 17.1 H MCV MCH 26 L Lymph % (Auto) Bennett % (Auto) 8.4 H Bennett # Eos # Lymph # (Auto) Bennett # (Auto) Eos # (Auto) Seg Neutrophils % Seg Neuts % (Manual) Baso # (Auto) Lymphocytes % (Manual) Monocytes % (Manual) Eosinophils % (Manual) Basophils % (Manual) Seg Neutrophils # Seg Neutrophils # Man Lymphocytes # (Manual) Monocytes # (Manual) Eosinophils # (Manual) Nucleated RBC % Basophils # (Manual) PT INR APTT Heparin Anti-Xa Level ABG pH POC ABG pO2 ABG pO2 ABG HCO3 ABG O2 Saturation ABG Base Excess POC ABG pCO2 ABG Hemoglobin ABG Oxyhemoglobin ABG Chloride ABG Glucose Oxyhemoglobin Sodium Potassium Chloride Carbon Dioxide BUN Creatinine Glucose POC Glucose 112 H 126 H Lactic Acid Calcium Phosphorus Magnesium AST ALT Lactate Dehydrogenase Total Bilirubin Direct Bilirubin CK-MB (CK-2) C-Reactive Protein NT-Pro-B Natriuret Pep Total Protein Albumin Arterial Blood Glucose Urine WBC (Auto) Urine Creatinine 01/07/20 01/07/20 01/07/20 04:10 05:59 12:27 WBC RBC Hgb Hct MCHC RDW MCV MCH Lymph % (Auto) Bennett % (Auto) Bennett # Eos # Lymph # (Auto) Bennett # (Auto) Eos # (Auto) Seg Neutrophils % Seg Neuts % (Manual) Baso # (Auto) Lymphocytes % (Manual) Monocytes % (Manual) Eosinophils % (Manual) Basophils % (Manual) Seg Neutrophils # Seg Neutrophils # Man Lymphocytes # (Manual) Monocytes # (Manual) Eosinophils # (Manual) Nucleated RBC % Basophils # (Manual) PT INR APTT Heparin Anti-Xa Level ABG pH POC ABG pO2 ABG pO2 ABG HCO3 ABG O2 Saturation ABG Base Excess POC ABG pCO2 ABG Hemoglobin ABG Oxyhemoglobin ABG Chloride ABG Glucose Oxyhemoglobin Sodium 153 H Potassium 3.5 L Chloride Carbon Dioxide 34 H BUN Creatinine 0.6 L Glucose 121 H POC Glucose 121 H 126 H Lactic Acid Calcium Phosphorus Magnesium AST ALT Lactate Dehydrogenase Total Bilirubin Direct Bilirubin CK-MB (CK-2) C-Reactive Protein NT-Pro-B Natriuret Pep Total Protein 5.9 L Albumin 2.4 L Arterial Blood Glucose Urine WBC (Auto) Urine Creatinine 01/07/20 01/08/20 01/08/20 18:12 00:03 05:41 WBC RBC Hgb Hct MCHC RDW MCV MCH Lymph % (Auto) Bennett % (Auto) Bennett # Eos # Lymph # (Auto) Bennett # (Auto) Eos # (Auto) Seg Neutrophils % Seg Neuts % (Manual) Baso # (Auto) Lymphocytes % (Manual) Monocytes % (Manual) Eosinophils % (Manual) Basophils % (Manual) Seg Neutrophils # Seg Neutrophils # Man Lymphocytes # (Manual) Monocytes # (Manual) Eosinophils # (Manual) Nucleated RBC % Basophils # (Manual) PT INR APTT Heparin Anti-Xa Level ABG pH POC ABG pO2 ABG pO2 ABG HCO3 ABG O2 Saturation ABG Base Excess POC ABG pCO2 ABG Hemoglobin ABG Oxyhemoglobin ABG Chloride ABG Glucose Oxyhemoglobin Sodium Potassium Chloride Carbon Dioxide BUN Creatinine Glucose POC Glucose 124 H 130 H 138 H Lactic Acid Calcium Phosphorus Magnesium AST ALT Lactate Dehydrogenase Total Bilirubin Direct Bilirubin CK-MB (CK-2) C-Reactive Protein NT-Pro-B Natriuret Pep Total Protein Albumin Arterial Blood Glucose Urine WBC (Auto) Urine Creatinine 01/08/20 01/08/20 01/08/20 09:28 11:42 18:21 WBC RBC Hgb Hct MCHC RDW MCV MCH Lymph % (Auto) Bennett % (Auto) Bennett # Eos # Lymph # (Auto) Bennett # (Auto) Eos # (Auto) Seg Neutrophils % Seg Neuts % (Manual) Baso # (Auto) Lymphocytes % (Manual) Monocytes % (Manual) Eosinophils % (Manual) Basophils % (Manual) Seg Neutrophils # Seg Neutrophils # Man Lymphocytes # (Manual) Monocytes # (Manual) Eosinophils # (Manual) Nucleated RBC % Basophils # (Manual) PT INR APTT Heparin Anti-Xa Level ABG pH POC ABG pO2 ABG pO2 ABG HCO3 ABG O2 Saturation ABG Base Excess POC ABG pCO2 ABG Hemoglobin ABG Oxyhemoglobin ABG Chloride ABG Glucose Oxyhemoglobin Sodium Potassium Chloride Carbon Dioxide BUN Creatinine Glucose POC Glucose 181 H 150 H 129 H Lactic Acid Calcium Phosphorus Magnesium AST ALT Lactate Dehydrogenase Total Bilirubin Direct Bilirubin CK-MB (CK-2) C-Reactive Protein NT-Pro-B Natriuret Pep Total Protein Albumin Arterial Blood Glucose Urine WBC (Auto) Urine Creatinine 01/08/20 01/08/20 01/09/20 19:25 23:55 04:11 WBC RBC 3.43 L Hgb 8.9 L Hct 28.7 L MCHC 31 L RDW 17.6 H MCV MCH 26 L Lymph % (Auto) Bennett % (Auto) 8.6 H Bennett # Eos # Lymph # (Auto) Bennett # (Auto) Eos # (Auto) Seg Neutrophils % Seg Neuts % (Manual) Baso # (Auto) Lymphocytes % (Manual) Monocytes % (Manual) Eosinophils % (Manual) Basophils % (Manual) Seg Neutrophils # Seg Neutrophils # Man Lymphocytes # (Manual) Monocytes # (Manual) Eosinophils # (Manual) Nucleated RBC % Basophils # (Manual) PT INR APTT Heparin Anti-Xa Level ABG pH POC ABG pO2 ABG pO2 ABG HCO3 ABG O2 Saturation ABG Base Excess POC ABG pCO2 ABG Hemoglobin ABG Oxyhemoglobin ABG Chloride ABG Glucose Oxyhemoglobin Sodium Potassium Chloride Carbon Dioxide BUN Creatinine 0.7 L Glucose 117 H POC Glucose 132 H Lactic Acid Calcium Phosphorus Magnesium AST ALT Lactate Dehydrogenase Total Bilirubin Direct Bilirubin CK-MB (CK-2) C-Reactive Protein NT-Pro-B Natriuret Pep Total Protein Albumin Arterial Blood Glucose Urine WBC (Auto) Urine Creatinine 01/09/20 01/09/20 01/09/20 04:11 05:38 22:58 WBC RBC Hgb Hct MCHC RDW MCV MCH Lymph % (Auto) Bennett % (Auto) Bennett # Eos # Lymph # (Auto) Bennett # (Auto) Eos # (Auto) Seg Neutrophils % Seg Neuts % (Manual) Baso # (Auto) Lymphocytes % (Manual) Monocytes % (Manual) Eosinophils % (Manual) Basophils % (Manual) Seg Neutrophils # Seg Neutrophils # Man Lymphocytes # (Manual) Monocytes # (Manual) Eosinophils # (Manual) Nucleated RBC % Basophils # (Manual) PT INR APTT Heparin Anti-Xa Level ABG pH POC ABG pO2 ABG pO2 ABG HCO3 ABG O2 Saturation ABG Base Excess POC ABG pCO2 ABG Hemoglobin ABG Oxyhemoglobin ABG Chloride ABG Glucose Oxyhemoglobin Sodium 147 H Potassium 3.3 L D Chloride Carbon Dioxide 32 H BUN Creatinine 0.6 L Glucose 106 H POC Glucose 107 H 113 H Lactic Acid Calcium Phosphorus Magnesium AST ALT Lactate Dehydrogenase Total Bilirubin Direct Bilirubin CK-MB (CK-2) C-Reactive Protein NT-Pro-B Natriuret Pep Total Protein Albumin Arterial Blood Glucose Urine WBC (Auto) Urine Creatinine 10/18/20 10/18/20 10/18/20 04:05 11:36 17:54 WBC RBC Hgb Hct MCHC RDW MCV MCH Lymph % (Auto) Bennett % (Auto) Bennett # Eos # Lymph # (Auto) Bennett # (Auto) Eos # (Auto) Seg Neutrophils % Seg Neuts % (Manual) Baso # (Auto) Lymphocytes % (Manual) Monocytes % (Manual) Eosinophils % (Manual) Basophils % (Manual) Seg Neutrophils # Seg Neutrophils # Man Lymphocytes # (Manual) Monocytes # (Manual) Eosinophils # (Manual) Nucleated RBC % Basophils # (Manual) PT INR APTT Heparin Anti-Xa Level ABG pH POC ABG pO2 ABG pO2 ABG HCO3 ABG O2 Saturation ABG Base Excess POC ABG pCO2 ABG Hemoglobin ABG Oxyhemoglobin ABG Chloride ABG Glucose Oxyhemoglobin Sodium Potassium Chloride Carbon Dioxide BUN Creatinine 0.7 L Glucose 110 H POC Glucose 129 H 117 H Lactic Acid Calcium Phosphorus Magnesium AST ALT Lactate Dehydrogenase Total Bilirubin Direct Bilirubin CK-MB (CK-2) C-Reactive Protein NT-Pro-B Natriuret Pep Total Protein Albumin Arterial Blood Glucose Urine WBC (Auto) Urine Creatinine 01/10/20 01/11/20 01/11/20 23:52 03:19 12:09 WBC RBC Hgb Hct MCHC RDW MCV MCH Lymph % (Auto) Bennett % (Auto) Bennett # Eos # Lymph # (Auto) Bennett # (Auto) Eos # (Auto) Seg Neutrophils % Seg Neuts % (Manual) Baso # (Auto) Lymphocytes % (Manual) Monocytes % (Manual) Eosinophils % (Manual) Basophils % (Manual) Seg Neutrophils # Seg Neutrophils # Man Lymphocytes # (Manual) Monocytes # (Manual) Eosinophils # (Manual) Nucleated RBC % Basophils # (Manual) PT INR APTT Heparin Anti-Xa Level ABG pH POC ABG pO2 ABG pO2 ABG HCO3 ABG O2 Saturation ABG Base Excess POC ABG pCO2 ABG Hemoglobin ABG Oxyhemoglobin ABG Chloride ABG Glucose Oxyhemoglobin Sodium Potassium Chloride Carbon Dioxide BUN Creatinine Glucose POC Glucose 117 H 136 H 115 H Lactic Acid Calcium Phosphorus Magnesium AST ALT Lactate Dehydrogenase Total Bilirubin Direct Bilirubin CK-MB (CK-2) C-Reactive Protein NT-Pro-B Natriuret Pep Total Protein Albumin Arterial Blood Glucose Urine WBC (Auto) Urine Creatinine 01/11/20 01/11/20 01/12/20 18:27 23:28 00:23 WBC RBC Hgb 9.8 L Hct 31.6 L MCHC 31 L RDW 17.8 H MCV 83 L MCH 26 L Lymph % (Auto) Bennett % (Auto) 8.0 H Bennett # Eos # Lymph # (Auto) Bennett # (Auto) Eos # (Auto) Seg Neutrophils % Seg Neuts % (Manual) Baso # (Auto) Lymphocytes % (Manual) Monocytes % (Manual) Eosinophils % (Manual) Basophils % (Manual) Seg Neutrophils # Seg Neutrophils # Man Lymphocytes # (Manual) Monocytes # (Manual) Eosinophils # (Manual) Nucleated RBC % Basophils # (Manual) PT INR APTT Heparin Anti-Xa Level ABG pH POC ABG pO2 ABG pO2 ABG HCO3 ABG O2 Saturation ABG Base Excess POC ABG pCO2 ABG Hemoglobin ABG Oxyhemoglobin ABG Chloride ABG Glucose Oxyhemoglobin Sodium Potassium Chloride Carbon Dioxide BUN Creatinine Glucose POC Glucose 118 H 122 H Lactic Acid Calcium Phosphorus Magnesium AST ALT Lactate Dehydrogenase Total Bilirubin Direct Bilirubin CK-MB (CK-2) C-Reactive Protein NT-Pro-B Natriuret Pep Total Protein Albumin Arterial Blood Glucose Urine WBC (Auto) Urine Creatinine 01/12/20 01/12/20 01/12/20 00:23 04:18 04:18 WBC RBC Hgb 9.6 L Hct 30.9 L MCHC 31 L RDW 17.3 H MCV 81 L MCH 25 L Lymph % (Auto) Bennett % (Auto) Bennett # Eos # Lymph # (Auto) Bennett # (Auto) Eos # (Auto) Seg Neutrophils % Seg Neuts % (Manual) Baso # (Auto) Lymphocytes % (Manual) Monocytes % (Manual) Eosinophils % (Manual) Basophils % (Manual) Seg Neutrophils # Seg Neutrophils # Man Lymphocytes # (Manual) Monocytes # (Manual) Eosinophils # (Manual) Nucleated RBC % Basophils # (Manual) PT INR APTT Heparin Anti-Xa Level ABG pH POC ABG pO2 ABG pO2 ABG HCO3 ABG O2 Saturation ABG Base Excess POC ABG pCO2 ABG Hemoglobin ABG Oxyhemoglobin ABG Chloride ABG Glucose Oxyhemoglobin Sodium Potassium Chloride Carbon Dioxide BUN Creatinine 0.7 L 0.7 L Glucose 111 H 108 H POC Glucose Lactic Acid Calcium Phosphorus Magnesium AST ALT Lactate Dehydrogenase Total Bilirubin Direct Bilirubin CK-MB (CK-2) C-Reactive Protein NT-Pro-B Natriuret Pep Total Protein Albumin 2.6 L Arterial Blood Glucose Urine WBC (Auto) Urine Creatinine 01/12/20 01/12/20 01/12/20 06:03 12:27 13:58 WBC RBC Hgb Hct MCHC RDW MCV MCH Lymph % (Auto) Bennett % (Auto) Bennett # Eos # Lymph # (Auto) Bennett # (Auto) Eos # (Auto) Seg Neutrophils % Seg Neuts % (Manual) Baso # (Auto) Lymphocytes % (Manual) Monocytes % (Manual) Eosinophils % (Manual) Basophils % (Manual) Seg Neutrophils # Seg Neutrophils # Man Lymphocytes # (Manual) Monocytes # (Manual) Eosinophils # (Manual) Nucleated RBC % Basophils # (Manual) PT INR APTT Heparin Anti-Xa Level ABG pH 7.453 H POC ABG pO2 76.6 L ABG pO2 ABG HCO3 ABG O2 Saturation ABG Base Excess POC ABG pCO2 ABG Hemoglobin 10.3 L ABG Oxyhemoglobin ABG Chloride ABG Glucose 99 H Oxyhemoglobin Sodium Potassium Chloride Carbon Dioxide BUN Creatinine Glucose POC Glucose 128 H 121 H Lactic Acid Calcium Phosphorus Magnesium AST ALT Lactate Dehydrogenase Total Bilirubin Direct Bilirubin CK-MB (CK-2) C-Reactive Protein NT-Pro-B Natriuret Pep Total Protein Albumin Arterial Blood Glucose 99 H Urine WBC (Auto) Urine Creatinine 01/12/20 01/13/20 01/13/20 18:24 12:01 17:46 WBC RBC Hgb Hct MCHC RDW MCV MCH Lymph % (Auto) Bennett % (Auto) Bennett # Eos # Lymph # (Auto) Bennett # (Auto) Eos # (Auto) Seg Neutrophils % Seg Neuts % (Manual) Baso # (Auto) Lymphocytes % (Manual) Monocytes % (Manual) Eosinophils % (Manual) Basophils % (Manual) Seg Neutrophils # Seg Neutrophils # Man Lymphocytes # (Manual) Monocytes # (Manual) Eosinophils # (Manual) Nucleated RBC % Basophils # (Manual) PT INR APTT Heparin Anti-Xa Level ABG pH POC ABG pO2 ABG pO2 ABG HCO3 ABG O2 Saturation ABG Base Excess POC ABG pCO2 ABG Hemoglobin ABG Oxyhemoglobin ABG Chloride ABG Glucose Oxyhemoglobin Sodium Potassium Chloride Carbon Dioxide BUN Creatinine Glucose POC Glucose 119 H 107 H 124 H Lactic Acid Calcium Phosphorus Magnesium AST ALT Lactate Dehydrogenase Total Bilirubin Direct Bilirubin CK-MB (CK-2) C-Reactive Protein NT-Pro-B Natriuret Pep Total Protein Albumin Arterial Blood Glucose Urine WBC (Auto) Urine Creatinine 01/13/20 01/14/20 01/14/20 20:40 00:10 05:33 WBC RBC Hgb Hct MCHC RDW MCV MCH Lymph % (Auto) Bennett % (Auto) Bennett # Eos # Lymph # (Auto) Bennett # (Auto) Eos # (Auto) Seg Neutrophils % Seg Neuts % (Manual) Baso # (Auto) Lymphocytes % (Manual) Monocytes % (Manual) Eosinophils % (Manual) Basophils % (Manual) Seg Neutrophils # Seg Neutrophils # Man Lymphocytes # (Manual) Monocytes # (Manual) Eosinophils # (Manual) Nucleated RBC % Basophils # (Manual) PT INR APTT Heparin Anti-Xa Level ABG pH POC ABG pO2 ABG pO2 65.3 L ABG HCO3 31.8 H ABG O2 Saturation 93.5 L ABG Base Excess 6.7 H POC ABG pCO2 ABG Hemoglobin 13.3 L ABG Oxyhemoglobin ABG Chloride ABG Glucose Oxyhemoglobin 90.9 L Sodium Potassium Chloride Carbon Dioxide BUN Creatinine Glucose POC Glucose 111 H 111 H Lactic Acid Calcium Phosphorus Magnesium AST ALT Lactate Dehydrogenase Total Bilirubin Direct Bilirubin CK-MB (CK-2) C-Reactive Protein NT-Pro-B Natriuret Pep Total Protein Albumin Arterial Blood Glucose Urine WBC (Auto) Urine Creatinine 01/14/20 01/14/20 01/14/20 12:10 16:14 16:14 WBC RBC Hgb 10.6 L Hct 34.2 L MCHC 31 L RDW 18.3 H MCV 83 L MCH 26 L Lymph % (Auto) Bennett % (Auto) 7.4 H Bennett # Eos # Lymph # (Auto) Bennett # (Auto) Eos # (Auto) Seg Neutrophils % 71.9 H Seg Neuts % (Manual) Baso # (Auto) Lymphocytes % (Manual) Monocytes % (Manual) Eosinophils % (Manual) Basophils % (Manual) Seg Neutrophils # Seg Neutrophils # Man Lymphocytes # (Manual) Monocytes # (Manual) Eosinophils # (Manual) Nucleated RBC % Basophils # (Manual) PT INR APTT Heparin Anti-Xa Level ABG pH POC ABG pO2 ABG pO2 ABG HCO3 ABG O2 Saturation ABG Base Excess POC ABG pCO2 ABG Hemoglobin ABG Oxyhemoglobin ABG Chloride ABG Glucose Oxyhemoglobin Sodium Potassium Chloride Carbon Dioxide 31 H BUN Creatinine 0.6 L Glucose 131 H POC Glucose 139 H Lactic Acid Calcium Phosphorus Magnesium AST ALT Lactate Dehydrogenase Total Bilirubin Direct Bilirubin CK-MB (CK-2) C-Reactive Protein NT-Pro-B Natriuret Pep Total Protein Albumin Arterial Blood Glucose Urine WBC (Auto) Urine Creatinine 01/14/20 01/15/20 01/15/20 18:05 00:52 05:35 WBC RBC Hgb Hct MCHC RDW MCV MCH Lymph % (Auto) Bennett % (Auto) Bennett # Eos # Lymph # (Auto) Bennett # (Auto) Eos # (Auto) Seg Neutrophils % Seg Neuts % (Manual) Baso # (Auto) Lymphocytes % (Manual) Monocytes % (Manual) Eosinophils % (Manual) Basophils % (Manual) Seg Neutrophils # Seg Neutrophils # Man Lymphocytes # (Manual) Monocytes # (Manual) Eosinophils # (Manual) Nucleated RBC % Basophils # (Manual) PT INR APTT Heparin Anti-Xa Level ABG pH POC ABG pO2 ABG pO2 ABG HCO3 ABG O2 Saturation ABG Base Excess POC ABG pCO2 ABG Hemoglobin ABG Oxyhemoglobin ABG Chloride ABG Glucose Oxyhemoglobin Sodium Potassium Chloride Carbon Dioxide BUN Creatinine Glucose POC Glucose 147 H 140 H 159 H Lactic Acid Calcium Phosphorus Magnesium AST ALT Lactate Dehydrogenase Total Bilirubin Direct Bilirubin CK-MB (CK-2) C-Reactive Protein NT-Pro-B Natriuret Pep Total Protein Albumin Arterial Blood Glucose Urine WBC (Auto) Urine Creatinine 01/15/20 01/15/20 01/16/20 12:52 17:43 00:32 WBC RBC Hgb Hct MCHC RDW MCV MCH Lymph % (Auto) Bennett % (Auto) Bennett # Eos # Lymph # (Auto) Bennett # (Auto) Eos # (Auto) Seg Neutrophils % Seg Neuts % (Manual) Baso # (Auto) Lymphocytes % (Manual) Monocytes % (Manual) Eosinophils % (Manual) Basophils % (Manual) Seg Neutrophils # Seg Neutrophils # Man Lymphocytes # (Manual) Monocytes # (Manual) Eosinophils # (Manual) Nucleated RBC % Basophils # (Manual) PT INR APTT Heparin Anti-Xa Level ABG pH POC ABG pO2 ABG pO2 ABG HCO3 ABG O2 Saturation ABG Base Excess POC ABG pCO2 ABG Hemoglobin ABG Oxyhemoglobin ABG Chloride ABG Glucose Oxyhemoglobin Sodium Potassium Chloride Carbon Dioxide BUN Creatinine Glucose POC Glucose 164 H 167 H 153 H Lactic Acid Calcium Phosphorus Magnesium AST ALT Lactate Dehydrogenase Total Bilirubin Direct Bilirubin CK-MB (CK-2) C-Reactive Protein NT-Pro-B Natriuret Pep Total Protein Albumin Arterial Blood Glucose Urine WBC (Auto) Urine Creatinine 01/16/20 01/16/20 01/17/20 05:46 11:48 06:38 WBC RBC Hgb Hct MCHC RDW MCV MCH Lymph % (Auto) Bennett % (Auto) Bennett # Eos # Lymph # (Auto) Bennett # (Auto) Eos # (Auto) Seg Neutrophils % Seg Neuts % (Manual) Baso # (Auto) Lymphocytes % (Manual) Monocytes % (Manual) Eosinophils % (Manual) Basophils % (Manual) Seg Neutrophils # Seg Neutrophils # Man Lymphocytes # (Manual) Monocytes # (Manual) Eosinophils # (Manual) Nucleated RBC % Basophils # (Manual) PT INR APTT Heparin Anti-Xa Level ABG pH POC ABG pO2 ABG pO2 ABG HCO3 ABG O2 Saturation ABG Base Excess POC ABG pCO2 ABG Hemoglobin ABG Oxyhemoglobin ABG Chloride ABG Glucose Oxyhemoglobin Sodium Potassium Chloride Carbon Dioxide BUN Creatinine Glucose POC Glucose 163 H 155 H 116 H Lactic Acid Calcium Phosphorus Magnesium AST ALT Lactate Dehydrogenase Total Bilirubin Direct Bilirubin CK-MB (CK-2) C-Reactive Protein NT-Pro-B Natriuret Pep Total Protein Albumin Arterial Blood Glucose Urine WBC (Auto) Urine Creatinine 01/17/20 01/17/20 01/18/20 11:36 17:43 00:12 WBC RBC Hgb Hct MCHC RDW MCV MCH Lymph % (Auto) Bennett % (Auto) Bennett # Eos # Lymph # (Auto) Bennett # (Auto) Eos # (Auto) Seg Neutrophils % Seg Neuts % (Manual) Baso # (Auto) Lymphocytes % (Manual) Monocytes % (Manual) Eosinophils % (Manual) Basophils % (Manual) Seg Neutrophils # Seg Neutrophils # Man Lymphocytes # (Manual) Monocytes # (Manual) Eosinophils # (Manual) Nucleated RBC % Basophils # (Manual) PT INR APTT Heparin Anti-Xa Level ABG pH POC ABG pO2 ABG pO2 ABG HCO3 ABG O2 Saturation ABG Base Excess POC ABG pCO2 ABG Hemoglobin ABG Oxyhemoglobin ABG Chloride ABG Glucose Oxyhemoglobin Sodium Potassium Chloride Carbon Dioxide BUN Creatinine Glucose POC Glucose 110 H 134 H 108 H Lactic Acid Calcium Phosphorus Magnesium AST ALT Lactate Dehydrogenase Total Bilirubin Direct Bilirubin CK-MB (CK-2) C-Reactive Protein NT-Pro-B Natriuret Pep Total Protein Albumin Arterial Blood Glucose Urine WBC (Auto) Urine Creatinine 01/18/20 01/18/20 01/18/20 05:37 06:46 06:46 WBC RBC Hgb 10.1 L Hct 32.2 L MCHC 31 L RDW 18.1 H MCV 81 L MCH 25 L Lymph % (Auto) Bennett % (Auto) Bennett # Eos # Lymph # (Auto) Bennett # (Auto) Eos # (Auto) Seg Neutrophils % 71.9 H Seg Neuts % (Manual) Baso # (Auto) Lymphocytes % (Manual) Monocytes % (Manual) Eosinophils % (Manual) Basophils % (Manual) Seg Neutrophils # Seg Neutrophils # Man Lymphocytes # (Manual) Monocytes # (Manual) Eosinophils # (Manual) Nucleated RBC % Basophils # (Manual) PT INR APTT Heparin Anti-Xa Level ABG pH POC ABG pO2 ABG pO2 ABG HCO3 ABG O2 Saturation ABG Base Excess POC ABG pCO2 ABG Hemoglobin ABG Oxyhemoglobin ABG Chloride ABG Glucose Oxyhemoglobin Sodium Potassium Chloride Carbon Dioxide BUN Creatinine 0.7 L Glucose 155 H POC Glucose 168 H Lactic Acid Calcium Phosphorus Magnesium AST ALT Lactate Dehydrogenase Total Bilirubin Direct Bilirubin CK-MB (CK-2) C-Reactive Protein NT-Pro-B Natriuret Pep Total Protein Albumin Arterial Blood Glucose Urine WBC (Auto) Urine Creatinine 01/18/20 01/18/20 01/18/20 12:05 17:14 23:28 WBC RBC Hgb Hct MCHC RDW MCV MCH Lymph % (Auto) Bennett % (Auto) Bennett # Eos # Lymph # (Auto) Bennett # (Auto) Eos # (Auto) Seg Neutrophils % Seg Neuts % (Manual) Baso # (Auto) Lymphocytes % (Manual) Monocytes % (Manual) Eosinophils % (Manual) Basophils % (Manual) Seg Neutrophils # Seg Neutrophils # Man Lymphocytes # (Manual) Monocytes # (Manual) Eosinophils # (Manual) Nucleated RBC % Basophils # (Manual) PT INR APTT Heparin Anti-Xa Level ABG pH POC ABG pO2 ABG pO2 ABG HCO3 ABG O2 Saturation ABG Base Excess POC ABG pCO2 ABG Hemoglobin ABG Oxyhemoglobin ABG Chloride ABG Glucose Oxyhemoglobin Sodium Potassium Chloride Carbon Dioxide BUN Creatinine Glucose POC Glucose 128 H 126 H 128 H Lactic Acid Calcium Phosphorus Magnesium AST ALT Lactate Dehydrogenase Total Bilirubin Direct Bilirubin CK-MB (CK-2) C-Reactive Protein NT-Pro-B Natriuret Pep Total Protein Albumin Arterial Blood Glucose Urine WBC (Auto) Urine Creatinine 01/19/20 01/19/20 01/19/20 05:39 12:33 17:36 WBC RBC Hgb Hct MCHC RDW MCV MCH Lymph % (Auto) Bennett % (Auto) Bennett # Eos # Lymph # (Auto) Bennett # (Auto) Eos # (Auto) Seg Neutrophils % Seg Neuts % (Manual) Baso # (Auto) Lymphocytes % (Manual) Monocytes % (Manual) Eosinophils % (Manual) Basophils % (Manual) Seg Neutrophils # Seg Neutrophils # Man Lymphocytes # (Manual) Monocytes # (Manual) Eosinophils # (Manual) Nucleated RBC % Basophils # (Manual) PT INR APTT Heparin Anti-Xa Level ABG pH POC ABG pO2 ABG pO2 ABG HCO3 ABG O2 Saturation ABG Base Excess POC ABG pCO2 ABG Hemoglobin ABG Oxyhemoglobin ABG Chloride ABG Glucose Oxyhemoglobin Sodium Potassium Chloride Carbon Dioxide BUN Creatinine Glucose POC Glucose 164 H 171 H 152 H Lactic Acid Calcium Phosphorus Magnesium AST ALT Lactate Dehydrogenase Total Bilirubin Direct Bilirubin CK-MB (CK-2) C-Reactive Protein NT-Pro-B Natriuret Pep Total Protein Albumin Arterial Blood Glucose Urine WBC (Auto) Urine Creatinine 01/20/20 01/20/20 01/20/20 00:12 05:20 05:35 WBC RBC Hgb 9.2 L Hct 29.4 L MCHC 31 L RDW 17.9 H MCV 81 L MCH 25 L Lymph % (Auto) Bennett % (Auto) Bennett # Eos # Lymph # (Auto) Bennett # (Auto) Eos # (Auto) Seg Neutrophils % Seg Neuts % (Manual) Baso # (Auto) Lymphocytes % (Manual) Monocytes % (Manual) Eosinophils % (Manual) Basophils % (Manual) Seg Neutrophils # Seg Neutrophils # Man Lymphocytes # (Manual) Monocytes # (Manual) Eosinophils # (Manual) Nucleated RBC % Basophils # (Manual) PT INR APTT Heparin Anti-Xa Level ABG pH POC ABG pO2 ABG pO2 ABG HCO3 ABG O2 Saturation ABG Base Excess POC ABG pCO2 ABG Hemoglobin ABG Oxyhemoglobin ABG Chloride ABG Glucose Oxyhemoglobin Sodium Potassium Chloride Carbon Dioxide BUN Creatinine Glucose POC Glucose 120 H 136 H Lactic Acid Calcium Phosphorus Magnesium AST ALT Lactate Dehydrogenase Total Bilirubin Direct Bilirubin CK-MB (CK-2) C-Reactive Protein NT-Pro-B Natriuret Pep Total Protein Albumin Arterial Blood Glucose Urine WBC (Auto) Urine Creatinine 01/20/20 01/20/20 01/20/20 05:40 11:58 14:55 WBC RBC Hgb 9.0 L Hct 28.3 L MCHC RDW MCV MCH Lymph % (Auto) Bennett % (Auto) Bennett # Eos # Lymph # (Auto) Bennett # (Auto) Eos # (Auto) Seg Neutrophils % Seg Neuts % (Manual) Baso # (Auto) Lymphocytes % (Manual) Monocytes % (Manual) Eosinophils % (Manual) Basophils % (Manual) Seg Neutrophils # Seg Neutrophils # Man Lymphocytes # (Manual) Monocytes # (Manual) Eosinophils # (Manual) Nucleated RBC % Basophils # (Manual) PT INR APTT Heparin Anti-Xa Level ABG pH POC ABG pO2 ABG pO2 ABG HCO3 ABG O2 Saturation ABG Base Excess POC ABG pCO2 ABG Hemoglobin ABG Oxyhemoglobin ABG Chloride ABG Glucose Oxyhemoglobin Sodium Potassium Chloride Carbon Dioxide 32 H BUN 22 H Creatinine 0.7 L Glucose 128 H POC Glucose 152 H Lactic Acid Calcium Phosphorus Magnesium AST ALT Lactate Dehydrogenase Total Bilirubin Direct Bilirubin CK-MB (CK-2) C-Reactive Protein NT-Pro-B Natriuret Pep Total Protein Albumin Arterial Blood Glucose Urine WBC (Auto) Urine Creatinine 01/20/20 01/20/20 01/20/20 14:55 18:14 21:35 WBC RBC Hgb Hct MCHC RDW MCV MCH Lymph % (Auto) Bennett % (Auto) Bennett # Eos # Lymph # (Auto) Bennett # (Auto) Eos # (Auto) Seg Neutrophils % Seg Neuts % (Manual) Baso # (Auto) Lymphocytes % (Manual) Monocytes % (Manual) Eosinophils % (Manual) Basophils % (Manual) Seg Neutrophils # Seg Neutrophils # Man Lymphocytes # (Manual) Monocytes # (Manual) Eosinophils # (Manual) Nucleated RBC % Basophils # (Manual) PT 20.4 H INR 1.72 H APTT 40.6 H Heparin Anti-Xa Level > 2.00 H ABG pH POC ABG pO2 ABG pO2 ABG HCO3 ABG O2 Saturation ABG Base Excess POC ABG pCO2 ABG Hemoglobin ABG Oxyhemoglobin ABG Chloride ABG Glucose Oxyhemoglobin Sodium Potassium Chloride Carbon Dioxide BUN Creatinine Glucose POC Glucose 150 H Lactic Acid Calcium Phosphorus Magnesium AST ALT Lactate Dehydrogenase Total Bilirubin Direct Bilirubin CK-MB (CK-2) C-Reactive Protein NT-Pro-B Natriuret Pep Total Protein Albumin Arterial Blood Glucose Urine WBC (Auto) Urine Creatinine 01/21/20 01/21/20 01/21/20 00:30 05:47 05:59 WBC RBC Hgb Hct MCHC RDW MCV MCH Lymph % (Auto) Bennett % (Auto) Bennett # Eos # Lymph # (Auto) Bennett # (Auto) Eos # (Auto) Seg Neutrophils % Seg Neuts % (Manual) Baso # (Auto) Lymphocytes % (Manual) Monocytes % (Manual) Eosinophils % (Manual) Basophils % (Manual) Seg Neutrophils # Seg Neutrophils # Man Lymphocytes # (Manual) Monocytes # (Manual) Eosinophils # (Manual) Nucleated RBC % Basophils # (Manual) PT INR APTT Heparin Anti-Xa Level 1.93 H ABG pH POC ABG pO2 ABG pO2 ABG HCO3 ABG O2 Saturation ABG Base Excess POC ABG pCO2 ABG Hemoglobin ABG Oxyhemoglobin ABG Chloride ABG Glucose Oxyhemoglobin Sodium Potassium Chloride Carbon Dioxide BUN Creatinine Glucose POC Glucose 126 H 148 H Lactic Acid Calcium Phosphorus Magnesium AST ALT Lactate Dehydrogenase Total Bilirubin Direct Bilirubin CK-MB (CK-2) C-Reactive Protein NT-Pro-B Natriuret Pep Total Protein Albumin Arterial Blood Glucose Urine WBC (Auto) Urine Creatinine 01/21/20 01/21/20 01/21/20 12:32 18:20 23:54 WBC RBC Hgb Hct MCHC RDW MCV MCH Lymph % (Auto) Bennett % (Auto) Bennett # Eos # Lymph # (Auto) Bennett # (Auto) Eos # (Auto) Seg Neutrophils % Seg Neuts % (Manual) Baso # (Auto) Lymphocytes % (Manual) Monocytes % (Manual) Eosinophils % (Manual) Basophils % (Manual) Seg Neutrophils # Seg Neutrophils # Man Lymphocytes # (Manual) Monocytes # (Manual) Eosinophils # (Manual) Nucleated RBC % Basophils # (Manual) PT INR APTT Heparin Anti-Xa Level 1.28 H ABG pH POC ABG pO2 ABG pO2 ABG HCO3 ABG O2 Saturation ABG Base Excess POC ABG pCO2 ABG Hemoglobin ABG Oxyhemoglobin ABG Chloride ABG Glucose Oxyhemoglobin Sodium Potassium Chloride Carbon Dioxide BUN Creatinine Glucose POC Glucose 112 H 146 H Lactic Acid Calcium Phosphorus Magnesium AST ALT Lactate Dehydrogenase Total Bilirubin Direct Bilirubin CK-MB (CK-2) C-Reactive Protein NT-Pro-B Natriuret Pep Total Protein Albumin Arterial Blood Glucose Urine WBC (Auto) Urine Creatinine 01/22/20 01/22/20 01/22/20 04:45 04:45 05:48 WBC RBC Hgb 9.3 L Hct 29.0 L MCHC RDW MCV MCH Lymph % (Auto) Bennett % (Auto) Bennett # Eos # Lymph # (Auto) Bennett # (Auto) Eos # (Auto) Seg Neutrophils % Seg Neuts % (Manual) Baso # (Auto) Lymphocytes % (Manual) Monocytes % (Manual) Eosinophils % (Manual) Basophils % (Manual) Seg Neutrophils # Seg Neutrophils # Man Lymphocytes # (Manual) Monocytes # (Manual) Eosinophils # (Manual) Nucleated RBC % Basophils # (Manual) PT INR APTT Heparin Anti-Xa Level 1.34 H ABG pH POC ABG pO2 ABG pO2 ABG HCO3 ABG O2 Saturation ABG Base Excess POC ABG pCO2 ABG Hemoglobin ABG Oxyhemoglobin ABG Chloride ABG Glucose Oxyhemoglobin Sodium Potassium Chloride Carbon Dioxide BUN Creatinine Glucose POC Glucose 142 H Lactic Acid Calcium Phosphorus Magnesium AST ALT Lactate Dehydrogenase Total Bilirubin Direct Bilirubin CK-MB (CK-2) C-Reactive Protein NT-Pro-B Natriuret Pep Total Protein Albumin Arterial Blood Glucose Urine WBC (Auto) Urine Creatinine 01/22/20 01/22/20 01/22/20 08:09 08:22 09:58 WBC RBC Hgb Hct MCHC RDW MCV MCH Lymph % (Auto) Bennett % (Auto) Bennett # Eos # Lymph # (Auto) Bennett # (Auto) Eos # (Auto) Seg Neutrophils % Seg Neuts % (Manual) Baso # (Auto) Lymphocytes % (Manual) Monocytes % (Manual) Eosinophils % (Manual) Basophils % (Manual) Seg Neutrophils # Seg Neutrophils # Man Lymphocytes # (Manual) Monocytes # (Manual) Eosinophils # (Manual) Nucleated RBC % Basophils # (Manual) PT 16.9 H INR 1.34 H APTT Heparin Anti-Xa Level ABG pH POC ABG pO2 ABG pO2 ABG HCO3 ABG O2 Saturation ABG Base Excess POC ABG pCO2 ABG Hemoglobin ABG Oxyhemoglobin ABG Chloride ABG Glucose Oxyhemoglobin Sodium Potassium Chloride 97.8 L Carbon Dioxide BUN 29 H Creatinine Glucose 128 H POC Glucose 131 H Lactic Acid Calcium Phosphorus Magnesium AST ALT Lactate Dehydrogenase Total Bilirubin Direct Bilirubin CK-MB (CK-2) C-Reactive Protein NT-Pro-B Natriuret Pep Total Protein Albumin Arterial Blood Glucose Urine WBC (Auto) Urine Creatinine 01/22/20 01/22/20 01/22/20 12:44 16:13 18:18 WBC RBC Hgb Hct MCHC RDW MCV MCH Lymph % (Auto) Bennett % (Auto) Bennett # Eos # Lymph # (Auto) Bennett # (Auto) Eos # (Auto) Seg Neutrophils % Seg Neuts % (Manual) Baso # (Auto) Lymphocytes % (Manual) Monocytes % (Manual) Eosinophils % (Manual) Basophils % (Manual) Seg Neutrophils # Seg Neutrophils # Man Lymphocytes # (Manual) Monocytes # (Manual) Eosinophils # (Manual) Nucleated RBC % Basophils # (Manual) PT INR APTT Heparin Anti-Xa Level ABG pH POC ABG pO2 ABG pO2 ABG HCO3 ABG O2 Saturation ABG Base Excess POC ABG pCO2 ABG Hemoglobin ABG Oxyhemoglobin ABG Chloride ABG Glucose Oxyhemoglobin Sodium Potassium Chloride Carbon Dioxide BUN Creatinine Glucose POC Glucose 156 H 133 H 155 H Lactic Acid Calcium Phosphorus Magnesium AST ALT Lactate Dehydrogenase Total Bilirubin Direct Bilirubin CK-MB (CK-2) C-Reactive Protein NT-Pro-B Natriuret Pep Total Protein Albumin Arterial Blood Glucose Urine WBC (Auto) Urine Creatinine 01/22/20 01/23/20 01/23/20 23:22 05:37 12:59 WBC RBC Hgb Hct MCHC RDW MCV MCH Lymph % (Auto) Bennett % (Auto) Bennett # Eos # Lymph # (Auto) Bennett # (Auto) Eos # (Auto) Seg Neutrophils % Seg Neuts % (Manual) Baso # (Auto) Lymphocytes % (Manual) Monocytes % (Manual) Eosinophils % (Manual) Basophils % (Manual) Seg Neutrophils # Seg Neutrophils # Man Lymphocytes # (Manual) Monocytes # (Manual) Eosinophils # (Manual) Nucleated RBC % Basophils # (Manual) PT INR APTT Heparin Anti-Xa Level ABG pH POC ABG pO2 ABG pO2 ABG HCO3 ABG O2 Saturation ABG Base Excess POC ABG pCO2 ABG Hemoglobin ABG Oxyhemoglobin ABG Chloride ABG Glucose Oxyhemoglobin Sodium Potassium Chloride Carbon Dioxide BUN Creatinine Glucose POC Glucose 148 H 163 H 175 H Lactic Acid Calcium Phosphorus Magnesium AST ALT Lactate Dehydrogenase Total Bilirubin Direct Bilirubin CK-MB (CK-2) C-Reactive Protein NT-Pro-B Natriuret Pep Total Protein Albumin Arterial Blood Glucose Urine WBC (Auto) Urine Creatinine 01/23/20 01/23/20 01/24/20 17:28 23:56 04:30 WBC RBC 3.46 L Hgb 8.8 L Hct 27.8 L MCHC RDW 18.2 H MCV 81 L MCH 25 L Lymph % (Auto) Bennett % (Auto) 7.8 H Bennett # Eos # Lymph # (Auto) Bennett # (Auto) Eos # (Auto) Seg Neutrophils % Seg Neuts % (Manual) Baso # (Auto) Lymphocytes % (Manual) Monocytes % (Manual) Eosinophils % (Manual) Basophils % (Manual) Seg Neutrophils # Seg Neutrophils # Man Lymphocytes # (Manual) Monocytes # (Manual) Eosinophils # (Manual) Nucleated RBC % Basophils # (Manual) PT INR APTT Heparin Anti-Xa Level ABG pH POC ABG pO2 ABG pO2 ABG HCO3 ABG O2 Saturation ABG Base Excess POC ABG pCO2 ABG Hemoglobin ABG Oxyhemoglobin ABG Chloride ABG Glucose Oxyhemoglobin Sodium Potassium Chloride Carbon Dioxide BUN Creatinine Glucose POC Glucose 165 H 177 H Lactic Acid Calcium Phosphorus Magnesium AST ALT Lactate Dehydrogenase Total Bilirubin Direct Bilirubin CK-MB (CK-2) C-Reactive Protein NT-Pro-B Natriuret Pep Total Protein Albumin Arterial Blood Glucose Urine WBC (Auto) Urine Creatinine 01/24/20 01/24/20 01/24/20 04:30 07:18 12:06 WBC RBC Hgb Hct MCHC RDW MCV MCH Lymph % (Auto) Bennett % (Auto) Bennett # Eos # Lymph # (Auto) Bennett # (Auto) Eos # (Auto) Seg Neutrophils % Seg Neuts % (Manual) Baso # (Auto) Lymphocytes % (Manual) Monocytes % (Manual) Eosinophils % (Manual) Basophils % (Manual) Seg Neutrophils # Seg Neutrophils # Man Lymphocytes # (Manual) Monocytes # (Manual) Eosinophils # (Manual) Nucleated RBC % Basophils # (Manual) PT INR APTT Heparin Anti-Xa Level ABG pH POC ABG pO2 ABG pO2 ABG HCO3 ABG O2 Saturation ABG Base Excess POC ABG pCO2 ABG Hemoglobin ABG Oxyhemoglobin ABG Chloride ABG Glucose Oxyhemoglobin Sodium Potassium Chloride 97.9 L Carbon Dioxide BUN 31 H Creatinine Glucose 146 H POC Glucose 151 H 133 H Lactic Acid Calcium Phosphorus Magnesium AST ALT Lactate Dehydrogenase Total Bilirubin Direct Bilirubin CK-MB (CK-2) C-Reactive Protein NT-Pro-B Natriuret Pep Total Protein Albumin Arterial Blood Glucose Urine WBC (Auto) Urine Creatinine 01/24/20 01/25/20 01/25/20 17:36 00:08 04:25 WBC RBC 3.50 L Hgb 8.7 L Hct 27.9 L MCHC 31 L RDW 18.2 H MCV 80 L MCH 25 L Lymph % (Auto) Bennett % (Auto) 8.5 H Bennett # Eos # Lymph # (Auto) Bennett # (Auto) Eos # (Auto) Seg Neutrophils % Seg Neuts % (Manual) Baso # (Auto) Lymphocytes % (Manual) Monocytes % (Manual) Eosinophils % (Manual) Basophils % (Manual) Seg Neutrophils # Seg Neutrophils # Man Lymphocytes # (Manual) Monocytes # (Manual) Eosinophils # (Manual) Nucleated RBC % Basophils # (Manual) PT INR APTT Heparin Anti-Xa Level ABG pH POC ABG pO2 ABG pO2 ABG HCO3 ABG O2 Saturation ABG Base Excess POC ABG pCO2 ABG Hemoglobin ABG Oxyhemoglobin ABG Chloride ABG Glucose Oxyhemoglobin Sodium Potassium Chloride Carbon Dioxide BUN Creatinine Glucose POC Glucose 133 H 129 H Lactic Acid Calcium Phosphorus Magnesium AST ALT Lactate Dehydrogenase Total Bilirubin Direct Bilirubin CK-MB (CK-2) C-Reactive Protein NT-Pro-B Natriuret Pep Total Protein Albumin Arterial Blood Glucose Urine WBC (Auto) Urine Creatinine 01/25/20 01/25/20 01/25/20 04:25 05:38 11:52 WBC RBC Hgb Hct MCHC RDW MCV MCH Lymph % (Auto) Bennett % (Auto) Bennett # Eos # Lymph # (Auto) Bennett # (Auto) Eos # (Auto) Seg Neutrophils % Seg Neuts % (Manual) Baso # (Auto) Lymphocytes % (Manual) Monocytes % (Manual) Eosinophils % (Manual) Basophils % (Manual) Seg Neutrophils # Seg Neutrophils # Man Lymphocytes # (Manual) Monocytes # (Manual) Eosinophils # (Manual) Nucleated RBC % Basophils # (Manual) PT INR APTT Heparin Anti-Xa Level ABG pH POC ABG pO2 ABG pO2 ABG HCO3 ABG O2 Saturation ABG Base Excess POC ABG pCO2 ABG Hemoglobin ABG Oxyhemoglobin ABG Chloride ABG Glucose Oxyhemoglobin Sodium Potassium Chloride Carbon Dioxide BUN 30 H Creatinine Glucose 134 H POC Glucose 129 H 134 H Lactic Acid Calcium Phosphorus Magnesium AST ALT Lactate Dehydrogenase Total Bilirubin Direct Bilirubin CK-MB (CK-2) C-Reactive Protein NT-Pro-B Natriuret Pep Total Protein Albumin Arterial Blood Glucose Urine WBC (Auto) Urine Creatinine 01/25/20 01/25/20 01/26/20 17:13 21:02 00:59 WBC RBC Hgb Hct MCHC RDW MCV MCH Lymph % (Auto) Bennett % (Auto) Bennett # Eos # Lymph # (Auto) Bennett # (Auto) Eos # (Auto) Seg Neutrophils % Seg Neuts % (Manual) Baso # (Auto) Lymphocytes % (Manual) Monocytes % (Manual) Eosinophils % (Manual) Basophils % (Manual) Seg Neutrophils # Seg Neutrophils # Man Lymphocytes # (Manual) Monocytes # (Manual) Eosinophils # (Manual) Nucleated RBC % Basophils # (Manual) PT INR APTT Heparin Anti-Xa Level ABG pH POC ABG pO2 ABG pO2 57.5 L ABG HCO3 31.7 H ABG O2 Saturation 90.3 L ABG Base Excess 6.6 H POC ABG pCO2 ABG Hemoglobin 13.0 L ABG Oxyhemoglobin ABG Chloride ABG Glucose Oxyhemoglobin 87.5 L Sodium Potassium Chloride Carbon Dioxide BUN Creatinine Glucose POC Glucose 124 H 196 H Lactic Acid Calcium Phosphorus Magnesium AST ALT Lactate Dehydrogenase Total Bilirubin Direct Bilirubin CK-MB (CK-2) C-Reactive Protein NT-Pro-B Natriuret Pep Total Protein Albumin Arterial Blood Glucose Urine WBC (Auto) Urine Creatinine 01/26/20 01/26/20 01/26/20 03:20 05:46 12:46 WBC RBC Hgb 9.2 L Hct 29.4 L MCHC RDW MCV MCH Lymph % (Auto) Bennett % (Auto) Bennett # Eos # Lymph # (Auto) Bennett # (Auto) Eos # (Auto) Seg Neutrophils % Seg Neuts % (Manual) Baso # (Auto) Lymphocytes % (Manual) Monocytes % (Manual) Eosinophils % (Manual) Basophils % (Manual) Seg Neutrophils # Seg Neutrophils # Man Lymphocytes # (Manual) Monocytes # (Manual) Eosinophils # (Manual) Nucleated RBC % Basophils # (Manual) PT INR APTT Heparin Anti-Xa Level ABG pH POC ABG pO2 ABG pO2 ABG HCO3 ABG O2 Saturation ABG Base Excess POC ABG pCO2 ABG Hemoglobin ABG Oxyhemoglobin ABG Chloride ABG Glucose Oxyhemoglobin Sodium Potassium Chloride Carbon Dioxide BUN Creatinine Glucose POC Glucose 141 H 122 H Lactic Acid Calcium Phosphorus Magnesium AST ALT Lactate Dehydrogenase Total Bilirubin Direct Bilirubin CK-MB (CK-2) C-Reactive Protein NT-Pro-B Natriuret Pep Total Protein Albumin Arterial Blood Glucose Urine WBC (Auto) Urine Creatinine 01/26/20 01/26/20 01/27/20 18:03 23:55 04:47 WBC RBC Hgb Hct MCHC RDW MCV MCH Lymph % (Auto) Bennett % (Auto) Bennett # Eos # Lymph # (Auto) Bennett # (Auto) Eos # (Auto) Seg Neutrophils % Seg Neuts % (Manual) Baso # (Auto) Lymphocytes % (Manual) Monocytes % (Manual) Eosinophils % (Manual) Basophils % (Manual) Seg Neutrophils # Seg Neutrophils # Man Lymphocytes # (Manual) Monocytes # (Manual) Eosinophils # (Manual) Nucleated RBC % Basophils # (Manual) PT INR APTT Heparin Anti-Xa Level ABG pH POC ABG pO2 ABG pO2 ABG HCO3 ABG O2 Saturation ABG Base Excess POC ABG pCO2 ABG Hemoglobin ABG Oxyhemoglobin ABG Chloride ABG Glucose Oxyhemoglobin Sodium Potassium Chloride Carbon Dioxide BUN 30 H Creatinine 0.7 L Glucose 135 H POC Glucose 142 H 159 H Lactic Acid Calcium Phosphorus Magnesium AST ALT Lactate Dehydrogenase Total Bilirubin Direct Bilirubin CK-MB (CK-2) C-Reactive Protein NT-Pro-B Natriuret Pep Total Protein Albumin Arterial Blood Glucose Urine WBC (Auto) Urine Creatinine 01/27/20 01/27/20 01/27/20 05:43 12:06 17:16 WBC RBC Hgb Hct MCHC RDW MCV MCH Lymph % (Auto) Bennett % (Auto) Bennett # Eos # Lymph # (Auto) Bennett # (Auto) Eos # (Auto) Seg Neutrophils % Seg Neuts % (Manual) Baso # (Auto) Lymphocytes % (Manual) Monocytes % (Manual) Eosinophils % (Manual) Basophils % (Manual) Seg Neutrophils # Seg Neutrophils # Man Lymphocytes # (Manual) Monocytes # (Manual) Eosinophils # (Manual) Nucleated RBC % Basophils # (Manual) PT INR APTT Heparin Anti-Xa Level ABG pH POC ABG pO2 ABG pO2 ABG HCO3 ABG O2 Saturation ABG Base Excess POC ABG pCO2 ABG Hemoglobin ABG Oxyhemoglobin ABG Chloride ABG Glucose Oxyhemoglobin Sodium Potassium Chloride Carbon Dioxide BUN Creatinine Glucose POC Glucose 143 H 142 H 128 H Lactic Acid Calcium Phosphorus Magnesium AST ALT Lactate Dehydrogenase Total Bilirubin Direct Bilirubin CK-MB (CK-2) C-Reactive Protein NT-Pro-B Natriuret Pep Total Protein Albumin Arterial Blood Glucose Urine WBC (Auto) Urine Creatinine 01/27/20 01/28/20 01/28/20 23:55 04:37 05:55 WBC RBC Hgb 9.4 L Hct 29.9 L MCHC RDW MCV MCH Lymph % (Auto) Bennett % (Auto) Bennett # Eos # Lymph # (Auto) Bennett # (Auto) Eos # (Auto) Seg Neutrophils % Seg Neuts % (Manual) Baso # (Auto) Lymphocytes % (Manual) Monocytes % (Manual) Eosinophils % (Manual) Basophils % (Manual) Seg Neutrophils # Seg Neutrophils # Man Lymphocytes # (Manual) Monocytes # (Manual) Eosinophils # (Manual) Nucleated RBC % Basophils # (Manual) PT INR APTT Heparin Anti-Xa Level ABG pH POC ABG pO2 ABG pO2 ABG HCO3 ABG O2 Saturation ABG Base Excess POC ABG pCO2 ABG Hemoglobin ABG Oxyhemoglobin ABG Chloride ABG Glucose Oxyhemoglobin Sodium Potassium Chloride Carbon Dioxide BUN Creatinine Glucose POC Glucose 166 H 169 H Lactic Acid Calcium Phosphorus Magnesium AST ALT Lactate Dehydrogenase Total Bilirubin Direct Bilirubin CK-MB (CK-2) C-Reactive Protein NT-Pro-B Natriuret Pep Total Protein Albumin Arterial Blood Glucose Urine WBC (Auto) Urine Creatinine 01/28/20 01/28/20 01/28/20 11:58 17:26 23:46 WBC RBC Hgb Hct MCHC RDW MCV MCH Lymph % (Auto) Bennett % (Auto) Bennett # Eos # Lymph # (Auto) Bennett # (Auto) Eos # (Auto) Seg Neutrophils % Seg Neuts % (Manual) Baso # (Auto) Lymphocytes % (Manual) Monocytes % (Manual) Eosinophils % (Manual) Basophils % (Manual) Seg Neutrophils # Seg Neutrophils # Man Lymphocytes # (Manual) Monocytes # (Manual) Eosinophils # (Manual) Nucleated RBC % Basophils # (Manual) PT INR APTT Heparin Anti-Xa Level ABG pH POC ABG pO2 ABG pO2 ABG HCO3 ABG O2 Saturation ABG Base Excess POC ABG pCO2 ABG Hemoglobin ABG Oxyhemoglobin ABG Chloride ABG Glucose Oxyhemoglobin Sodium Potassium Chloride Carbon Dioxide BUN Creatinine Glucose POC Glucose 130 H 126 H 150 H Lactic Acid Calcium Phosphorus Magnesium AST ALT Lactate Dehydrogenase Total Bilirubin Direct Bilirubin CK-MB (CK-2) C-Reactive Protein NT-Pro-B Natriuret Pep Total Protein Albumin Arterial Blood Glucose Urine WBC (Auto) Urine Creatinine 01/29/20 01/29/20 01/29/20 04:55 06:00 12:28 WBC RBC Hgb Hct MCHC RDW MCV MCH Lymph % (Auto) Bennett % (Auto) Bennett # Eos # Lymph # (Auto) Bennett # (Auto) Eos # (Auto) Seg Neutrophils % Seg Neuts % (Manual) Baso # (Auto) Lymphocytes % (Manual) Monocytes % (Manual) Eosinophils % (Manual) Basophils % (Manual) Seg Neutrophils # Seg Neutrophils # Man Lymphocytes # (Manual) Monocytes # (Manual) Eosinophils # (Manual) Nucleated RBC % Basophils # (Manual) PT INR APTT Heparin Anti-Xa Level ABG pH POC ABG pO2 ABG pO2 ABG HCO3 ABG O2 Saturation ABG Base Excess POC ABG pCO2 ABG Hemoglobin ABG Oxyhemoglobin ABG Chloride ABG Glucose Oxyhemoglobin Sodium Potassium Chloride Carbon Dioxide 34 H BUN Creatinine 0.6 L Glucose 152 H POC Glucose 157 H 156 H Lactic Acid Calcium Phosphorus Magnesium AST ALT Lactate Dehydrogenase Total Bilirubin Direct Bilirubin CK-MB (CK-2) C-Reactive Protein NT-Pro-B Natriuret Pep Total Protein Albumin Arterial Blood Glucose Urine WBC (Auto) Urine Creatinine 01/29/20 01/30/20 01/30/20 19:06 00:29 05:39 WBC RBC Hgb Hct MCHC RDW MCV MCH Lymph % (Auto) Bennett % (Auto) Bennett # Eos # Lymph # (Auto) Bennett # (Auto) Eos # (Auto) Seg Neutrophils % Seg Neuts % (Manual) Baso # (Auto) Lymphocytes % (Manual) Monocytes % (Manual) Eosinophils % (Manual) Basophils % (Manual) Seg Neutrophils # Seg Neutrophils # Man Lymphocytes # (Manual) Monocytes # (Manual) Eosinophils # (Manual) Nucleated RBC % Basophils # (Manual) PT INR APTT Heparin Anti-Xa Level ABG pH POC ABG pO2 ABG pO2 ABG HCO3 ABG O2 Saturation ABG Base Excess POC ABG pCO2 ABG Hemoglobin ABG Oxyhemoglobin ABG Chloride ABG Glucose Oxyhemoglobin Sodium Potassium Chloride Carbon Dioxide BUN Creatinine Glucose POC Glucose 152 H 132 H 159 H Lactic Acid Calcium Phosphorus Magnesium AST ALT Lactate Dehydrogenase Total Bilirubin Direct Bilirubin CK-MB (CK-2) C-Reactive Protein NT-Pro-B Natriuret Pep Total Protein Albumin Arterial Blood Glucose Urine WBC (Auto) Urine Creatinine 01/30/20 01/30/20 01/30/20 12:27 17:42 23:28 WBC RBC Hgb Hct MCHC RDW MCV MCH Lymph % (Auto) Bennett % (Auto) Bennett # Eos # Lymph # (Auto) Bennett # (Auto) Eos # (Auto) Seg Neutrophils % Seg Neuts % (Manual) Baso # (Auto) Lymphocytes % (Manual) Monocytes % (Manual) Eosinophils % (Manual) Basophils % (Manual) Seg Neutrophils # Seg Neutrophils # Man Lymphocytes # (Manual) Monocytes # (Manual) Eosinophils # (Manual) Nucleated RBC % Basophils # (Manual) PT INR APTT Heparin Anti-Xa Level ABG pH POC ABG pO2 ABG pO2 ABG HCO3 ABG O2 Saturation ABG Base Excess POC ABG pCO2 ABG Hemoglobin ABG Oxyhemoglobin ABG Chloride ABG Glucose Oxyhemoglobin Sodium Potassium Chloride Carbon Dioxide BUN Creatinine Glucose POC Glucose 151 H 144 H 164 H Lactic Acid Calcium Phosphorus Magnesium AST ALT Lactate Dehydrogenase Total Bilirubin Direct Bilirubin CK-MB (CK-2) C-Reactive Protein NT-Pro-B Natriuret Pep Total Protein Albumin Arterial Blood Glucose Urine WBC (Auto) Urine Creatinine 01/31/20 01/31/20 01/31/20 05:51 11:51 18:06 WBC RBC Hgb Hct MCHC RDW MCV MCH Lymph % (Auto) Bennett % (Auto) Bennett # Eos # Lymph # (Auto) Bennett # (Auto) Eos # (Auto) Seg Neutrophils % Seg Neuts % (Manual) Baso # (Auto) Lymphocytes % (Manual) Monocytes % (Manual) Eosinophils % (Manual) Basophils % (Manual) Seg Neutrophils # Seg Neutrophils # Man Lymphocytes # (Manual) Monocytes # (Manual) Eosinophils # (Manual) Nucleated RBC % Basophils # (Manual) PT INR APTT Heparin Anti-Xa Level ABG pH POC ABG pO2 ABG pO2 ABG HCO3 ABG O2 Saturation ABG Base Excess POC ABG pCO2 ABG Hemoglobin ABG Oxyhemoglobin ABG Chloride ABG Glucose Oxyhemoglobin Sodium Potassium Chloride Carbon Dioxide BUN Creatinine Glucose POC Glucose 131 H 167 H 210 H Lactic Acid Calcium Phosphorus Magnesium AST ALT Lactate Dehydrogenase Total Bilirubin Direct Bilirubin CK-MB (CK-2) C-Reactive Protein NT-Pro-B Natriuret Pep Total Protein Albumin Arterial Blood Glucose Urine WBC (Auto) Urine Creatinine 01/31/20 01/31/20 02/01/20 19:24 Unknown 00:34 WBC RBC Hgb Hct MCHC RDW MCV MCH Lymph % (Auto) Bennett % (Auto) Bennett # Eos # Lymph # (Auto) Bennett # (Auto) Eos # (Auto) Seg Neutrophils % Seg Neuts % (Manual) Baso # (Auto) Lymphocytes % (Manual) Monocytes % (Manual) Eosinophils % (Manual) Basophils % (Manual) Seg Neutrophils # Seg Neutrophils # Man Lymphocytes # (Manual) Monocytes # (Manual) Eosinophils # (Manual) Nucleated RBC % Basophils # (Manual) PT INR APTT Heparin Anti-Xa Level ABG pH POC ABG pO2 ABG pO2 ABG HCO3 ABG O2 Saturation ABG Base Excess POC ABG pCO2 ABG Hemoglobin ABG Oxyhemoglobin ABG Chloride ABG Glucose Oxyhemoglobin Sodium Potassium Chloride 95.3 L Carbon Dioxide 33 H BUN 36 H Creatinine Glucose 187 H POC Glucose 116 H Lactic Acid Calcium Phosphorus Magnesium AST ALT Lactate Dehydrogenase Total Bilirubin Direct Bilirubin CK-MB (CK-2) C-Reactive Protein NT-Pro-B Natriuret Pep Total Protein Albumin Arterial Blood Glucose Urine WBC (Auto) Urine Creatinine 57.4 H 02/01/20 02/01/20 02/01/20 05:24 10:40 12:29 WBC RBC Hgb Hct MCHC RDW MCV MCH Lymph % (Auto) Bennett % (Auto) Bennett # Eos # Lymph # (Auto) Bennett # (Auto) Eos # (Auto) Seg Neutrophils % Seg Neuts % (Manual) Baso # (Auto) Lymphocytes % (Manual) Monocytes % (Manual) Eosinophils % (Manual) Basophils % (Manual) Seg Neutrophils # Seg Neutrophils # Man Lymphocytes # (Manual) Monocytes # (Manual) Eosinophils # (Manual) Nucleated RBC % Basophils # (Manual) PT INR APTT Heparin Anti-Xa Level ABG pH POC ABG pO2 ABG pO2 ABG HCO3 ABG O2 Saturation ABG Base Excess POC ABG pCO2 ABG Hemoglobin ABG Oxyhemoglobin ABG Chloride ABG Glucose Oxyhemoglobin Sodium Potassium Chloride Carbon Dioxide BUN Creatinine Glucose POC Glucose 142 H 165 H 151 H Lactic Acid Calcium Phosphorus Magnesium AST ALT Lactate Dehydrogenase Total Bilirubin Direct Bilirubin CK-MB (CK-2) C-Reactive Protein NT-Pro-B Natriuret Pep Total Protein Albumin Arterial Blood Glucose Urine WBC (Auto) Urine Creatinine 02/01/20 02/01/20 02/02/20 17:16 23:23 06:36 WBC RBC Hgb Hct MCHC RDW MCV MCH Lymph % (Auto) Bennett % (Auto) Bennett # Eos # Lymph # (Auto) Bennett # (Auto) Eos # (Auto) Seg Neutrophils % Seg Neuts % (Manual) Baso # (Auto) Lymphocytes % (Manual) Monocytes % (Manual) Eosinophils % (Manual) Basophils % (Manual) Seg Neutrophils # Seg Neutrophils # Man Lymphocytes # (Manual) Monocytes # (Manual) Eosinophils # (Manual) Nucleated RBC % Basophils # (Manual) PT INR APTT Heparin Anti-Xa Level ABG pH POC ABG pO2 ABG pO2 ABG HCO3 ABG O2 Saturation ABG Base Excess POC ABG pCO2 ABG Hemoglobin ABG Oxyhemoglobin ABG Chloride ABG Glucose Oxyhemoglobin Sodium Potassium Chloride Carbon Dioxide BUN Creatinine Glucose POC Glucose 137 H 145 H 181 H Lactic Acid Calcium Phosphorus Magnesium AST ALT Lactate Dehydrogenase Total Bilirubin Direct Bilirubin CK-MB (CK-2) C-Reactive Protein NT-Pro-B Natriuret Pep Total Protein Albumin Arterial Blood Glucose Urine WBC (Auto) Urine Creatinine 02/02/20 02/02/20 02/02/20 10:01 12:05 17:54 WBC RBC Hgb Hct MCHC RDW MCV MCH Lymph % (Auto) Bennett % (Auto) Bennett # Eos # Lymph # (Auto) Bennett # (Auto) Eos # (Auto) Seg Neutrophils % Seg Neuts % (Manual) Baso # (Auto) Lymphocytes % (Manual) Monocytes % (Manual) Eosinophils % (Manual) Basophils % (Manual) Seg Neutrophils # Seg Neutrophils # Man Lymphocytes # (Manual) Monocytes # (Manual) Eosinophils # (Manual) Nucleated RBC % Basophils # (Manual) PT INR APTT Heparin Anti-Xa Level ABG pH POC ABG pO2 ABG pO2 ABG HCO3 ABG O2 Saturation ABG Base Excess POC ABG pCO2 ABG Hemoglobin ABG Oxyhemoglobin ABG Chloride ABG Glucose Oxyhemoglobin Sodium Potassium Chloride 95.3 L Carbon Dioxide BUN 44 H Creatinine Glucose 234 H POC Glucose 184 H 127 H Lactic Acid Calcium Phosphorus Magnesium AST 363 H ALT 457 H Lactate Dehydrogenase Total Bilirubin Direct Bilirubin CK-MB (CK-2) C-Reactive Protein NT-Pro-B Natriuret Pep Total Protein Albumin 3.0 L Arterial Blood Glucose Urine WBC (Auto) Urine Creatinine 02/02/20 02/03/20 02/03/20 23:47 05:32 07:04 WBC 13.0 H RBC Hgb 9.5 L Hct 30.8 L MCHC 31 L RDW 19.6 H MCV 81 L MCH 25 L Lymph % (Auto) Bennett % (Auto) 9.4 H Bennett # Eos # Lymph # (Auto) Bennett # (Auto) 1.2 H Eos # (Auto) Seg Neutrophils % 72.3 H Seg Neuts % (Manual) Baso # (Auto) Lymphocytes % (Manual) Monocytes % (Manual) Eosinophils % (Manual) Basophils % (Manual) Seg Neutrophils # 9.4 H Seg Neutrophils # Man Lymphocytes # (Manual) Monocytes # (Manual) Eosinophils # (Manual) Nucleated RBC % Basophils # (Manual) PT INR APTT Heparin Anti-Xa Level ABG pH POC ABG pO2 ABG pO2 ABG HCO3 ABG O2 Saturation ABG Base Excess POC ABG pCO2 ABG Hemoglobin ABG Oxyhemoglobin ABG Chloride ABG Glucose Oxyhemoglobin Sodium Potassium Chloride Carbon Dioxide BUN Creatinine Glucose POC Glucose 124 H 129 H Lactic Acid Calcium Phosphorus Magnesium AST ALT Lactate Dehydrogenase Total Bilirubin Direct Bilirubin CK-MB (CK-2) C-Reactive Protein NT-Pro-B Natriuret Pep Total Protein Albumin Arterial Blood Glucose Urine WBC (Auto) Urine Creatinine 02/03/20 02/03/20 02/03/20 07:04 11:32 12:49 WBC RBC Hgb Hct MCHC RDW MCV MCH Lymph % (Auto) Bennett % (Auto) Bennett # Eos # Lymph # (Auto) Bennett # (Auto) Eos # (Auto) Seg Neutrophils % Seg Neuts % (Manual) Baso # (Auto) Lymphocytes % (Manual) Monocytes % (Manual) Eosinophils % (Manual) Basophils % (Manual) Seg Neutrophils # Seg Neutrophils # Man Lymphocytes # (Manual) Monocytes # (Manual) Eosinophils # (Manual) Nucleated RBC % Basophils # (Manual) PT INR APTT Heparin Anti-Xa Level ABG pH POC ABG pO2 ABG pO2 ABG HCO3 ABG O2 Saturation ABG Base Excess POC ABG pCO2 ABG Hemoglobin ABG Oxyhemoglobin ABG Chloride ABG Glucose Oxyhemoglobin Sodium Potassium Chloride 97.9 L Carbon Dioxide 33 H BUN 39 H Creatinine Glucose 119 H POC Glucose 138 H Lactic Acid Calcium Phosphorus Magnesium 2.60 H AST ALT Lactate Dehydrogenase Total Bilirubin Direct Bilirubin CK-MB (CK-2) C-Reactive Protein NT-Pro-B Natriuret Pep Total Protein Albumin Arterial Blood Glucose Urine WBC (Auto) Urine Creatinine 02/03/20 02/04/20 02/04/20 18:28 16:24 16:24 WBC RBC 3.38 L Hgb 8.6 L Hct 26.9 L MCHC RDW 19.5 H MCV 80 L MCH 26 L Lymph % (Auto) Bennett % (Auto) Bennett # Eos # Lymph # (Auto) Bennett # (Auto) Eos # (Auto) Seg Neutrophils % Seg Neuts % (Manual) Baso # (Auto) Lymphocytes % (Manual) Monocytes % (Manual) Eosinophils % (Manual) Basophils % (Manual) Seg Neutrophils # Seg Neutrophils # Man Lymphocytes # (Manual) Monocytes # (Manual) Eosinophils # (Manual) Nucleated RBC % Basophils # (Manual) PT INR APTT Heparin Anti-Xa Level ABG pH POC ABG pO2 ABG pO2 ABG HCO3 ABG O2 Saturation ABG Base Excess POC ABG pCO2 ABG Hemoglobin ABG Oxyhemoglobin ABG Chloride ABG Glucose Oxyhemoglobin Sodium Potassium 3.4 L Chloride Carbon Dioxide 31 H BUN 37 H Creatinine Glucose 70 L POC Glucose 118 H Lactic Acid Calcium Phosphorus Magnesium AST 169 H ALT 394 H Lactate Dehydrogenase Total Bilirubin 1.50 H Direct Bilirubin CK-MB (CK-2) C-Reactive Protein NT-Pro-B Natriuret Pep Total Protein Albumin 2.9 L Arterial Blood Glucose Urine WBC (Auto) Urine Creatinine 02/05/20 02/05/20 02/05/20 00:41 06:37 17:14 WBC RBC Hgb Hct MCHC RDW MCV MCH Lymph % (Auto) Bennett % (Auto) Bennett # Eos # Lymph # (Auto) Bennett # (Auto) Eos # (Auto) Seg Neutrophils % Seg Neuts % (Manual) Baso # (Auto) Lymphocytes % (Manual) Monocytes % (Manual) Eosinophils % (Manual) Basophils % (Manual) Seg Neutrophils # Seg Neutrophils # Man Lymphocytes # (Manual) Monocytes # (Manual) Eosinophils # (Manual) Nucleated RBC % Basophils # (Manual) PT INR APTT Heparin Anti-Xa Level ABG pH POC ABG pO2 ABG pO2 ABG HCO3 ABG O2 Saturation ABG Base Excess POC ABG pCO2 ABG Hemoglobin ABG Oxyhemoglobin ABG Chloride ABG Glucose Oxyhemoglobin Sodium Potassium 3.1 L Chloride Carbon Dioxide 35 H BUN 32 H Creatinine 0.7 L Glucose POC Glucose 69 L 127 H Lactic Acid Calcium Phosphorus Magnesium AST 134 H ALT 352 H Lactate Dehydrogenase Total Bilirubin 1.60 H Direct Bilirubin CK-MB (CK-2) C-Reactive Protein NT-Pro-B Natriuret Pep Total Protein Albumin 2.9 L Arterial Blood Glucose Urine WBC (Auto) Urine Creatinine 02/05/20 02/06/20 02/06/20 23:43 05:32 08:01 WBC RBC Hgb Hct MCHC RDW MCV MCH Lymph % (Auto) Bennett % (Auto) Bennett # Eos # Lymph # (Auto) Bennett # (Auto) Eos # (Auto) Seg Neutrophils % Seg Neuts % (Manual) Baso # (Auto) Lymphocytes % (Manual) Monocytes % (Manual) Eosinophils % (Manual) Basophils % (Manual) Seg Neutrophils # Seg Neutrophils # Man Lymphocytes # (Manual) Monocytes # (Manual) Eosinophils # (Manual) Nucleated RBC % Basophils # (Manual) PT INR APTT Heparin Anti-Xa Level ABG pH POC ABG pO2 ABG pO2 ABG HCO3 ABG O2 Saturation ABG Base Excess POC ABG pCO2 ABG Hemoglobin ABG Oxyhemoglobin ABG Chloride ABG Glucose Oxyhemoglobin Sodium Potassium Chloride Carbon Dioxide BUN 40 H Creatinine Glucose 132 H POC Glucose 129 H 131 H Lactic Acid Calcium Phosphorus Magnesium AST ALT Lactate Dehydrogenase Total Bilirubin Direct Bilirubin CK-MB (CK-2) C-Reactive Protein NT-Pro-B Natriuret Pep Total Protein Albumin Arterial Blood Glucose Urine WBC (Auto) Urine Creatinine 02/06/20 02/06/20 02/06/20 11:51 16:28 17:32 WBC RBC Hgb Hct MCHC RDW MCV MCH Lymph % (Auto) Bennett % (Auto) Bennett # Eos # Lymph # (Auto) Bennett # (Auto) Eos # (Auto) Seg Neutrophils % Seg Neuts % (Manual) Baso # (Auto) Lymphocytes % (Manual) Monocytes % (Manual) Eosinophils % (Manual) Basophils % (Manual) Seg Neutrophils # Seg Neutrophils # Man Lymphocytes # (Manual) Monocytes # (Manual) Eosinophils # (Manual) Nucleated RBC % Basophils # (Manual) PT INR APTT Heparin Anti-Xa Level ABG pH POC ABG pO2 ABG pO2 ABG HCO3 ABG O2 Saturation ABG Base Excess POC ABG pCO2 ABG Hemoglobin ABG Oxyhemoglobin ABG Chloride ABG Glucose Oxyhemoglobin Sodium Potassium Chloride Carbon Dioxide BUN Creatinine Glucose POC Glucose 167 H 129 H Lactic Acid Calcium Phosphorus Magnesium AST 824 H ALT 948 H Lactate Dehydrogenase Total Bilirubin 1.70 H Direct Bilirubin 1.2 H CK-MB (CK-2) C-Reactive Protein NT-Pro-B Natriuret Pep Total Protein Albumin 2.9 L Arterial Blood Glucose Urine WBC (Auto) Urine Creatinine 02/07/20 02/07/20 02/07/20 00:11 04:57 04:57 WBC RBC Hgb 9.2 L Hct 29.7 L MCHC 31 L RDW 20.2 H MCV 80 L MCH 25 L Lymph % (Auto) Bennett % (Auto) Bennett # Eos # Lymph # (Auto) Bennett # (Auto) Eos # (Auto) Seg Neutrophils % Seg Neuts % (Manual) Baso # (Auto) Lymphocytes % (Manual) Monocytes % (Manual) Eosinophils % (Manual) Basophils % (Manual) Seg Neutrophils # Seg Neutrophils # Man Lymphocytes # (Manual) Monocytes # (Manual) Eosinophils # (Manual) Nucleated RBC % Basophils # (Manual) PT INR APTT Heparin Anti-Xa Level ABG pH POC ABG pO2 ABG pO2 ABG HCO3 ABG O2 Saturation ABG Base Excess POC ABG pCO2 ABG Hemoglobin ABG Oxyhemoglobin ABG Chloride ABG Glucose Oxyhemoglobin Sodium Potassium 3.4 L D Chloride Carbon Dioxide 32 H BUN 39 H Creatinine Glucose 106 H POC Glucose 121 H Lactic Acid Calcium Phosphorus Magnesium AST ALT Lactate Dehydrogenase Total Bilirubin Direct Bilirubin CK-MB (CK-2) C-Reactive Protein NT-Pro-B Natriuret Pep Total Protein Albumin Arterial Blood Glucose Urine WBC (Auto) Urine Creatinine 02/07/20 02/07/20 02/07/20 15:03 15:03 17:11 WBC RBC Hgb Hct MCHC RDW MCV MCH Lymph % (Auto) Bennett % (Auto) Bennett # Eos # Lymph # (Auto) Bennett # (Auto) Eos # (Auto) Seg Neutrophils % Seg Neuts % (Manual) Baso # (Auto) Lymphocytes % (Manual) Monocytes % (Manual) Eosinophils % (Manual) Basophils % (Manual) Seg Neutrophils # Seg Neutrophils # Man Lymphocytes # (Manual) Monocytes # (Manual) Eosinophils # (Manual) Nucleated RBC % Basophils # (Manual) PT 27.0 H INR 2.46 H APTT Heparin Anti-Xa Level ABG pH POC ABG pO2 ABG pO2 ABG HCO3 ABG O2 Saturation ABG Base Excess POC ABG pCO2 ABG Hemoglobin ABG Oxyhemoglobin ABG Chloride ABG Glucose Oxyhemoglobin Sodium Potassium Chloride Carbon Dioxide BUN Creatinine Glucose POC Glucose 109 H Lactic Acid Calcium Phosphorus Magnesium AST 424 H ALT 796 H Lactate Dehydrogenase Total Bilirubin 1.60 H Direct Bilirubin 1.2 H CK-MB (CK-2) C-Reactive Protein NT-Pro-B Natriuret Pep Total Protein Albumin 2.9 L Arterial Blood Glucose Urine WBC (Auto) Urine Creatinine 02/08/20 02/08/20 02/08/20 12:14 17:44 19:00 WBC RBC Hgb Hct MCHC RDW MCV MCH Lymph % (Auto) Bennett % (Auto) Bennett # Eos # Lymph # (Auto) Bennett # (Auto) Eos # (Auto) Seg Neutrophils % Seg Neuts % (Manual) Baso # (Auto) Lymphocytes % (Manual) Monocytes % (Manual) Eosinophils % (Manual) Basophils % (Manual) Seg Neutrophils # Seg Neutrophils # Man Lymphocytes # (Manual) Monocytes # (Manual) Eosinophils # (Manual) Nucleated RBC % Basophils # (Manual) PT INR APTT Heparin Anti-Xa Level ABG pH POC ABG pO2 ABG pO2 ABG HCO3 ABG O2 Saturation ABG Base Excess POC ABG pCO2 ABG Hemoglobin ABG Oxyhemoglobin ABG Chloride ABG Glucose Oxyhemoglobin Sodium Potassium Chloride Carbon Dioxide BUN Creatinine Glucose POC Glucose 111 H 107 H Lactic Acid Calcium Phosphorus Magnesium AST 309 H ALT 650 H Lactate Dehydrogenase Total Bilirubin 1.30 H Direct Bilirubin 0.9 H CK-MB (CK-2) C-Reactive Protein NT-Pro-B Natriuret Pep Total Protein 6.2 L Albumin 2.7 L Arterial Blood Glucose Urine WBC (Auto) Urine Creatinine 02/09/20 02/09/20 02/09/20 05:41 12:28 18:07 WBC RBC Hgb Hct MCHC RDW MCV MCH Lymph % (Auto) Bennett % (Auto) Bennett # Eos # Lymph # (Auto) Bennett # (Auto) Eos # (Auto) Seg Neutrophils % Seg Neuts % (Manual) Baso # (Auto) Lymphocytes % (Manual) Monocytes % (Manual) Eosinophils % (Manual) Basophils % (Manual) Seg Neutrophils # Seg Neutrophils # Man Lymphocytes # (Manual) Monocytes # (Manual) Eosinophils # (Manual) Nucleated RBC % Basophils # (Manual) PT INR APTT Heparin Anti-Xa Level ABG pH POC ABG pO2 ABG pO2 ABG HCO3 ABG O2 Saturation ABG Base Excess POC ABG pCO2 ABG Hemoglobin ABG Oxyhemoglobin ABG Chloride ABG Glucose Oxyhemoglobin Sodium Potassium Chloride Carbon Dioxide BUN Creatinine Glucose POC Glucose 113 H 140 H 143 H Lactic Acid Calcium Phosphorus Magnesium AST ALT Lactate Dehydrogenase Total Bilirubin Direct Bilirubin CK-MB (CK-2) C-Reactive Protein NT-Pro-B Natriuret Pep Total Protein Albumin Arterial Blood Glucose Urine WBC (Auto) Urine Creatinine 02/09/20 02/09/20 02/10/20 21:40 23:45 06:00 WBC RBC Hgb Hct MCHC RDW MCV MCH Lymph % (Auto) Bennett % (Auto) Bennett # Eos # Lymph # (Auto) Bennett # (Auto) Eos # (Auto) Seg Neutrophils % Seg Neuts % (Manual) Baso # (Auto) Lymphocytes % (Manual) Monocytes % (Manual) Eosinophils % (Manual) Basophils % (Manual) Seg Neutrophils # Seg Neutrophils # Man Lymphocytes # (Manual) Monocytes # (Manual) Eosinophils # (Manual) Nucleated RBC % Basophils # (Manual) PT INR APTT Heparin Anti-Xa Level ABG pH POC ABG pO2 ABG pO2 59.8 L ABG HCO3 33.3 H ABG O2 Saturation 88.9 L ABG Base Excess 7.4 H POC ABG pCO2 ABG Hemoglobin 10.4 L ABG Oxyhemoglobin ABG Chloride ABG Glucose Oxyhemoglobin 86.3 L Sodium Potassium Chloride Carbon Dioxide BUN Creatinine Glucose POC Glucose 127 H 114 H Lactic Acid Calcium Phosphorus Magnesium AST ALT Lactate Dehydrogenase Total Bilirubin Direct Bilirubin CK-MB (CK-2) C-Reactive Protein NT-Pro-B Natriuret Pep Total Protein Albumin Arterial Blood Glucose Urine WBC (Auto) Urine Creatinine 02/10/20 02/10/20 02/10/20 07:40 07:40 13:38 WBC 11.5 H RBC Hgb 10.6 L Hct 34.7 L MCHC 31 L RDW 19.8 H MCV 79 L MCH 24 L Lymph % (Auto) Bennett % (Auto) 9.2 H Bennett # Eos # Lymph # (Auto) Bennett # (Auto) 1.1 H Eos # (Auto) Seg Neutrophils % Seg Neuts % (Manual) Baso # (Auto) Lymphocytes % (Manual) Monocytes % (Manual) Eosinophils % (Manual) Basophils % (Manual) Seg Neutrophils # Seg Neutrophils # Man Lymphocytes # (Manual) Monocytes # (Manual) Eosinophils # (Manual) Nucleated RBC % Basophils # (Manual) PT INR APTT Heparin Anti-Xa Level ABG pH POC ABG pO2 ABG pO2 ABG HCO3 ABG O2 Saturation ABG Base Excess POC ABG pCO2 ABG Hemoglobin ABG Oxyhemoglobin ABG Chloride ABG Glucose Oxyhemoglobin Sodium 151 H Potassium Chloride 107.2 H Carbon Dioxide 36 H BUN 25 H Creatinine 0.7 L Glucose 114 H POC Glucose 116 H Lactic Acid Calcium Phosphorus Magnesium 2.40 H AST ALT Lactate Dehydrogenase Total Bilirubin Direct Bilirubin CK-MB (CK-2) C-Reactive Protein NT-Pro-B Natriuret Pep Total Protein Albumin Arterial Blood Glucose Urine WBC (Auto) Urine Creatinine 02/10/20 02/11/20 02/11/20 17:44 05:47 12:21 WBC RBC Hgb Hct MCHC RDW MCV MCH Lymph % (Auto) Bennett % (Auto) Bennett # Eos # Lymph # (Auto) Bennett # (Auto) Eos # (Auto) Seg Neutrophils % Seg Neuts % (Manual) Baso # (Auto) Lymphocytes % (Manual) Monocytes % (Manual) Eosinophils % (Manual) Basophils % (Manual) Seg Neutrophils # Seg Neutrophils # Man Lymphocytes # (Manual) Monocytes # (Manual) Eosinophils # (Manual) Nucleated RBC % Basophils # (Manual) PT INR APTT Heparin Anti-Xa Level ABG pH POC ABG pO2 ABG pO2 ABG HCO3 ABG O2 Saturation ABG Base Excess POC ABG pCO2 ABG Hemoglobin ABG Oxyhemoglobin ABG Chloride ABG Glucose Oxyhemoglobin Sodium Potassium Chloride Carbon Dioxide BUN Creatinine Glucose POC Glucose 139 H 173 H 143 H Lactic Acid Calcium Phosphorus Magnesium AST ALT Lactate Dehydrogenase Total Bilirubin Direct Bilirubin CK-MB (CK-2) C-Reactive Protein NT-Pro-B Natriuret Pep Total Protein Albumin Arterial Blood Glucose Urine WBC (Auto) Urine Creatinine 02/11/20 02/11/20 02/12/20 13:43 14:11 00:15 WBC RBC Hgb Hct MCHC RDW MCV MCH Lymph % (Auto) Bennett % (Auto) Bennett # Eos # Lymph # (Auto) Bennett # (Auto) Eos # (Auto) Seg Neutrophils % Seg Neuts % (Manual) Baso # (Auto) Lymphocytes % (Manual) Monocytes % (Manual) Eosinophils % (Manual) Basophils % (Manual) Seg Neutrophils # Seg Neutrophils # Man Lymphocytes # (Manual) Monocytes # (Manual) Eosinophils # (Manual) Nucleated RBC % Basophils # (Manual) PT INR APTT Heparin Anti-Xa Level ABG pH 7.502 H POC ABG pO2 77.7 L ABG pO2 ABG HCO3 ABG O2 Saturation ABG Base Excess POC ABG pCO2 ABG Hemoglobin 11.1 L ABG Oxyhemoglobin ABG Chloride 108.0 H ABG Glucose 151 H Oxyhemoglobin Sodium Potassium Chloride Carbon Dioxide BUN Creatinine Glucose POC Glucose 130 H 125 H Lactic Acid Calcium Phosphorus Magnesium AST ALT Lactate Dehydrogenase Total Bilirubin Direct Bilirubin CK-MB (CK-2) C-Reactive Protein NT-Pro-B Natriuret Pep Total Protein Albumin Arterial Blood Glucose 151 H Urine WBC (Auto) Urine Creatinine 02/12/20 02/12/20 02/12/20 04:56 04:56 17:42 WBC RBC Hgb 9.9 L Hct 31.8 L MCHC 31 L RDW 19.4 H MCV 79 L MCH 25 L Lymph % (Auto) Bennett % (Auto) 10.3 H Bennett # Eos # Lymph # (Auto) Bennett # (Auto) 1.0 H Eos # (Auto) Seg Neutrophils % Seg Neuts % (Manual) Baso # (Auto) Lymphocytes % (Manual) Monocytes % (Manual) Eosinophils % (Manual) Basophils % (Manual) Seg Neutrophils # Seg Neutrophils # Man Lymphocytes # (Manual) Monocytes # (Manual) Eosinophils # (Manual) Nucleated RBC % Basophils # (Manual) PT INR APTT Heparin Anti-Xa Level ABG pH POC ABG pO2 ABG pO2 ABG HCO3 ABG O2 Saturation ABG Base Excess POC ABG pCO2 ABG Hemoglobin ABG Oxyhemoglobin ABG Chloride ABG Glucose Oxyhemoglobin Sodium 149 H Potassium Chloride 108.6 H Carbon Dioxide BUN 28 H Creatinine 0.7 L Glucose 108 H POC Glucose 113 H Lactic Acid Calcium Phosphorus Magnesium AST ALT Lactate Dehydrogenase Total Bilirubin Direct Bilirubin CK-MB (CK-2) C-Reactive Protein NT-Pro-B Natriuret Pep Total Protein Albumin Arterial Blood Glucose Urine WBC (Auto) Urine Creatinine 02/13/20 02/13/20 02/13/20 00:39 05:36 12:25 WBC RBC Hgb Hct MCHC RDW MCV MCH Lymph % (Auto) Bennett % (Auto) Bennett # Eos # Lymph # (Auto) Bennett # (Auto) Eos # (Auto) Seg Neutrophils % Seg Neuts % (Manual) Baso # (Auto) Lymphocytes % (Manual) Monocytes % (Manual) Eosinophils % (Manual) Basophils % (Manual) Seg Neutrophils # Seg Neutrophils # Man Lymphocytes # (Manual) Monocytes # (Manual) Eosinophils # (Manual) Nucleated RBC % Basophils # (Manual) PT INR APTT Heparin Anti-Xa Level ABG pH POC ABG pO2 ABG pO2 ABG HCO3 ABG O2 Saturation ABG Base Excess POC ABG pCO2 ABG Hemoglobin ABG Oxyhemoglobin ABG Chloride ABG Glucose Oxyhemoglobin Sodium Potassium Chloride Carbon Dioxide BUN Creatinine Glucose POC Glucose 129 H 126 H 129 H Lactic Acid Calcium Phosphorus Magnesium AST ALT Lactate Dehydrogenase Total Bilirubin Direct Bilirubin CK-MB (CK-2) C-Reactive Protein NT-Pro-B Natriuret Pep Total Protein Albumin Arterial Blood Glucose Urine WBC (Auto) Urine Creatinine 02/13/20 02/14/20 02/14/20 17:59 00:15 05:41 WBC RBC Hgb Hct MCHC RDW MCV MCH Lymph % (Auto) Bennett % (Auto) Bennett # Eos # Lymph # (Auto) Bennett # (Auto) Eos # (Auto) Seg Neutrophils % Seg Neuts % (Manual) Baso # (Auto) Lymphocytes % (Manual) Monocytes % (Manual) Eosinophils % (Manual) Basophils % (Manual) Seg Neutrophils # Seg Neutrophils # Man Lymphocytes # (Manual) Monocytes # (Manual) Eosinophils # (Manual) Nucleated RBC % Basophils # (Manual) PT INR APTT Heparin Anti-Xa Level ABG pH POC ABG pO2 ABG pO2 ABG HCO3 ABG O2 Saturation ABG Base Excess POC ABG pCO2 ABG Hemoglobin ABG Oxyhemoglobin ABG Chloride ABG Glucose Oxyhemoglobin Sodium Potassium Chloride Carbon Dioxide BUN Creatinine Glucose POC Glucose 153 H 130 H 130 H Lactic Acid Calcium Phosphorus Magnesium AST ALT Lactate Dehydrogenase Total Bilirubin Direct Bilirubin CK-MB (CK-2) C-Reactive Protein NT-Pro-B Natriuret Pep Total Protein Albumin Arterial Blood Glucose Urine WBC (Auto) Urine Creatinine 02/14/20 02/15/20 02/15/20 11:32 00:12 05:27 WBC RBC Hgb Hct MCHC RDW MCV MCH Lymph % (Auto) Bennett % (Auto) Bennett # Eos # Lymph # (Auto) Bennett # (Auto) Eos # (Auto) Seg Neutrophils % Seg Neuts % (Manual) Baso # (Auto) Lymphocytes % (Manual) Monocytes % (Manual) Eosinophils % (Manual) Basophils % (Manual) Seg Neutrophils # Seg Neutrophils # Man Lymphocytes # (Manual) Monocytes # (Manual) Eosinophils # (Manual) Nucleated RBC % Basophils # (Manual) PT INR APTT Heparin Anti-Xa Level ABG pH POC ABG pO2 ABG pO2 ABG HCO3 ABG O2 Saturation ABG Base Excess POC ABG pCO2 ABG Hemoglobin ABG Oxyhemoglobin ABG Chloride ABG Glucose Oxyhemoglobin Sodium Potassium Chloride Carbon Dioxide BUN Creatinine Glucose POC Glucose 157 H 124 H 111 H Lactic Acid Calcium Phosphorus Magnesium AST ALT Lactate Dehydrogenase Total Bilirubin Direct Bilirubin CK-MB (CK-2) C-Reactive Protein NT-Pro-B Natriuret Pep Total Protein Albumin Arterial Blood Glucose Urine WBC (Auto) Urine Creatinine 02/15/20 02/15/20 02/15/20 06:59 06:59 11:14 WBC RBC Hgb 10.4 L Hct 33.7 L MCHC 31 L RDW 19.4 H MCV 80 L MCH 24 L Lymph % (Auto) Bennett % (Auto) Bennett # Eos # Lymph # (Auto) Bennett # (Auto) Eos # (Auto) Seg Neutrophils % Seg Neuts % (Manual) Baso # (Auto) Lymphocytes % (Manual) Monocytes % (Manual) Eosinophils % (Manual) Basophils % (Manual) 2.0 H Seg Neutrophils # Seg Neutrophils # Man Lymphocytes # (Manual) Monocytes # (Manual) Eosinophils # (Manual) Nucleated RBC % 1.0 H Basophils # (Manual) 0.2 H PT INR APTT Heparin Anti-Xa Level ABG pH POC ABG pO2 ABG pO2 ABG HCO3 ABG O2 Saturation ABG Base Excess POC ABG pCO2 ABG Hemoglobin ABG Oxyhemoglobin ABG Chloride ABG Glucose Oxyhemoglobin Sodium 149 H Potassium Chloride 108.4 H Carbon Dioxide 31 H BUN 40 H Creatinine 0.7 L Glucose 150 H POC Glucose 128 H Lactic Acid Calcium Phosphorus Magnesium AST ALT Lactate Dehydrogenase Total Bilirubin Direct Bilirubin CK-MB (CK-2) C-Reactive Protein NT-Pro-B Natriuret Pep Total Protein Albumin Arterial Blood Glucose Urine WBC (Auto) Urine Creatinine 02/15/20 02/15/20 02/16/20 17:46 23:50 05:03 WBC RBC Hgb Hct MCHC RDW MCV MCH Lymph % (Auto) Bennett % (Auto) Bennett # Eos # Lymph # (Auto) Bennett # (Auto) Eos # (Auto) Seg Neutrophils % Seg Neuts % (Manual) Baso # (Auto) Lymphocytes % (Manual) Monocytes % (Manual) Eosinophils % (Manual) Basophils % (Manual) Seg Neutrophils # Seg Neutrophils # Man Lymphocytes # (Manual) Monocytes # (Manual) Eosinophils # (Manual) Nucleated RBC % Basophils # (Manual) PT INR APTT Heparin Anti-Xa Level ABG pH POC ABG pO2 ABG pO2 ABG HCO3 ABG O2 Saturation ABG Base Excess POC ABG pCO2 ABG Hemoglobin ABG Oxyhemoglobin ABG Chloride ABG Glucose Oxyhemoglobin Sodium Potassium Chloride Carbon Dioxide BUN Creatinine Glucose POC Glucose 154 H 135 H 148 H Lactic Acid Calcium Phosphorus Magnesium AST ALT Lactate Dehydrogenase Total Bilirubin Direct Bilirubin CK-MB (CK-2) C-Reactive Protein NT-Pro-B Natriuret Pep Total Protein Albumin Arterial Blood Glucose Urine WBC (Auto) Urine Creatinine 02/16/20 02/16/20 02/16/20 07:53 11:28 17:52 WBC RBC Hgb Hct MCHC RDW MCV MCH Lymph % (Auto) Bennett % (Auto) Bennett # Eos # Lymph # (Auto) Bennett # (Auto) Eos # (Auto) Seg Neutrophils % Seg Neuts % (Manual) Baso # (Auto) Lymphocytes % (Manual) Monocytes % (Manual) Eosinophils % (Manual) Basophils % (Manual) Seg Neutrophils # Seg Neutrophils # Man Lymphocytes # (Manual) Monocytes # (Manual) Eosinophils # (Manual) Nucleated RBC % Basophils # (Manual) PT INR APTT Heparin Anti-Xa Level ABG pH POC ABG pO2 ABG pO2 ABG HCO3 ABG O2 Saturation ABG Base Excess POC ABG pCO2 ABG Hemoglobin ABG Oxyhemoglobin ABG Chloride ABG Glucose Oxyhemoglobin Sodium Potassium Chloride 107.9 H Carbon Dioxide BUN 38 H Creatinine 0.6 L Glucose 151 H POC Glucose 123 H 152 H Lactic Acid Calcium Phosphorus Magnesium AST ALT Lactate Dehydrogenase Total Bilirubin Direct Bilirubin CK-MB (CK-2) C-Reactive Protein NT-Pro-B Natriuret Pep Total Protein Albumin Arterial Blood Glucose Urine WBC (Auto) Urine Creatinine 02/16/20 02/17/20 02/17/20 23:49 06:24 11:36 WBC RBC Hgb Hct MCHC RDW MCV MCH Lymph % (Auto) Bennett % (Auto) Bennett # Eos # Lymph # (Auto) Bennett # (Auto) Eos # (Auto) Seg Neutrophils % Seg Neuts % (Manual) Baso # (Auto) Lymphocytes % (Manual) Monocytes % (Manual) Eosinophils % (Manual) Basophils % (Manual) Seg Neutrophils # Seg Neutrophils # Man Lymphocytes # (Manual) Monocytes # (Manual) Eosinophils # (Manual) Nucleated RBC % Basophils # (Manual) PT INR APTT Heparin Anti-Xa Level ABG pH POC ABG pO2 ABG pO2 ABG HCO3 ABG O2 Saturation ABG Base Excess POC ABG pCO2 ABG Hemoglobin ABG Oxyhemoglobin ABG Chloride ABG Glucose Oxyhemoglobin Sodium Potassium Chloride Carbon Dioxide BUN Creatinine Glucose POC Glucose 156 H 193 H 162 H Lactic Acid Calcium Phosphorus Magnesium AST ALT Lactate Dehydrogenase Total Bilirubin Direct Bilirubin CK-MB (CK-2) C-Reactive Protein NT-Pro-B Natriuret Pep Total Protein Albumin Arterial Blood Glucose Urine WBC (Auto) Urine Creatinine 02/17/20 02/17/20 02/18/20 17:55 23:28 05:11 WBC RBC Hgb Hct MCHC RDW MCV MCH Lymph % (Auto) Bennett % (Auto) Bennett # Eos # Lymph # (Auto) Bennett # (Auto) Eos # (Auto) Seg Neutrophils % Seg Neuts % (Manual) Baso # (Auto) Lymphocytes % (Manual) Monocytes % (Manual) Eosinophils % (Manual) Basophils % (Manual) Seg Neutrophils # Seg Neutrophils # Man Lymphocytes # (Manual) Monocytes # (Manual) Eosinophils # (Manual) Nucleated RBC % Basophils # (Manual) PT INR APTT Heparin Anti-Xa Level ABG pH POC ABG pO2 ABG pO2 ABG HCO3 ABG O2 Saturation ABG Base Excess POC ABG pCO2 ABG Hemoglobin ABG Oxyhemoglobin ABG Chloride ABG Glucose Oxyhemoglobin Sodium Potassium Chloride Carbon Dioxide BUN Creatinine Glucose POC Glucose 165 H 146 H 122 H Lactic Acid Calcium Phosphorus Magnesium AST ALT Lactate Dehydrogenase Total Bilirubin Direct Bilirubin CK-MB (CK-2) C-Reactive Protein NT-Pro-B Natriuret Pep Total Protein Albumin Arterial Blood Glucose Urine WBC (Auto) Urine Creatinine 02/18/20 02/18/20 02/19/20 12:24 17:29 00:01 WBC RBC Hgb Hct MCHC RDW MCV MCH Lymph % (Auto) Bennett % (Auto) Bennett # Eos # Lymph # (Auto) Bennett # (Auto) Eos # (Auto) Seg Neutrophils % Seg Neuts % (Manual) Baso # (Auto) Lymphocytes % (Manual) Monocytes % (Manual) Eosinophils % (Manual) Basophils % (Manual) Seg Neutrophils # Seg Neutrophils # Man Lymphocytes # (Manual) Monocytes # (Manual) Eosinophils # (Manual) Nucleated RBC % Basophils # (Manual) PT INR APTT Heparin Anti-Xa Level ABG pH POC ABG pO2 ABG pO2 ABG HCO3 ABG O2 Saturation ABG Base Excess POC ABG pCO2 ABG Hemoglobin ABG Oxyhemoglobin ABG Chloride ABG Glucose Oxyhemoglobin Sodium Potassium Chloride Carbon Dioxide BUN Creatinine Glucose POC Glucose 162 H 136 H 145 H Lactic Acid Calcium Phosphorus Magnesium AST ALT Lactate Dehydrogenase Total Bilirubin Direct Bilirubin CK-MB (CK-2) C-Reactive Protein NT-Pro-B Natriuret Pep Total Protein Albumin Arterial Blood Glucose Urine WBC (Auto) Urine Creatinine 02/19/20 02/19/20 02/19/20 05:53 11:44 17:32 WBC RBC Hgb Hct MCHC RDW MCV MCH Lymph % (Auto) Bennett % (Auto) Bennett # Eos # Lymph # (Auto) Bennett # (Auto) Eos # (Auto) Seg Neutrophils % Seg Neuts % (Manual) Baso # (Auto) Lymphocytes % (Manual) Monocytes % (Manual) Eosinophils % (Manual) Basophils % (Manual) Seg Neutrophils # Seg Neutrophils # Man Lymphocytes # (Manual) Monocytes # (Manual) Eosinophils # (Manual) Nucleated RBC % Basophils # (Manual) PT INR APTT Heparin Anti-Xa Level ABG pH POC ABG pO2 ABG pO2 ABG HCO3 ABG O2 Saturation ABG Base Excess POC ABG pCO2 ABG Hemoglobin ABG Oxyhemoglobin ABG Chloride ABG Glucose Oxyhemoglobin Sodium Potassium Chloride Carbon Dioxide BUN Creatinine Glucose POC Glucose 116 H 120 H 154 H Lactic Acid Calcium Phosphorus Magnesium AST ALT Lactate Dehydrogenase Total Bilirubin Direct Bilirubin CK-MB (CK-2) C-Reactive Protein NT-Pro-B Natriuret Pep Total Protein Albumin Arterial Blood Glucose Urine WBC (Auto) Urine Creatinine 02/19/20 02/20/20 02/20/20 23:43 00:24 00:24 WBC RBC Hgb 9.4 L Hct 30.0 L MCHC 31 L RDW 20.4 H MCV 79 L MCH 25 L Lymph % (Auto) Bennett % (Auto) 8.5 H Bennett # Eos # Lymph # (Auto) Bennett # (Auto) Eos # (Auto) Seg Neutrophils % Seg Neuts % (Manual) Baso # (Auto) Lymphocytes % (Manual) Monocytes % (Manual) Eosinophils % (Manual) Basophils % (Manual) Seg Neutrophils # Seg Neutrophils # Man Lymphocytes # (Manual) Monocytes # (Manual) Eosinophils # (Manual) Nucleated RBC % Basophils # (Manual) PT INR APTT Heparin Anti-Xa Level ABG pH POC ABG pO2 ABG pO2 ABG HCO3 ABG O2 Saturation ABG Base Excess POC ABG pCO2 ABG Hemoglobin ABG Oxyhemoglobin ABG Chloride ABG Glucose Oxyhemoglobin Sodium 147 H Potassium 3.4 L Chloride Carbon Dioxide 31 H BUN 34 H Creatinine 0.5 L Glucose 135 H POC Glucose 122 H Lactic Acid Calcium Phosphorus Magnesium AST ALT Lactate Dehydrogenase Total Bilirubin Direct Bilirubin CK-MB (CK-2) C-Reactive Protein NT-Pro-B Natriuret Pep Total Protein Albumin Arterial Blood Glucose Urine WBC (Auto) Urine Creatinine 02/20/20 02/20/20 02/20/20 06:07 06:45 12:03 WBC RBC Hgb Hct MCHC RDW MCV MCH Lymph % (Auto) Bennett % (Auto) Bennett # Eos # Lymph # (Auto) Bennett # (Auto) Eos # (Auto) Seg Neutrophils % Seg Neuts % (Manual) Baso # (Auto) Lymphocytes % (Manual) Monocytes % (Manual) Eosinophils % (Manual) Basophils % (Manual) Seg Neutrophils # Seg Neutrophils # Man Lymphocytes # (Manual) Monocytes # (Manual) Eosinophils # (Manual) Nucleated RBC % Basophils # (Manual) PT INR APTT Heparin Anti-Xa Level ABG pH 7.461 H POC ABG pO2 ABG pO2 ABG HCO3 33.3 H ABG O2 Saturation ABG Base Excess 8.4 H POC ABG pCO2 ABG Hemoglobin 10.0 L ABG Oxyhemoglobin ABG Chloride ABG Glucose Oxyhemoglobin 94.1 L Sodium Potassium Chloride Carbon Dioxide BUN Creatinine Glucose POC Glucose 109 H 128 H Lactic Acid Calcium Phosphorus Magnesium AST ALT Lactate Dehydrogenase Total Bilirubin Direct Bilirubin CK-MB (CK-2) C-Reactive Protein NT-Pro-B Natriuret Pep Total Protein Albumin Arterial Blood Glucose Urine WBC (Auto) Urine Creatinine 02/20/20 02/20/20 02/21/20 18:02 23:55 05:42 WBC RBC Hgb Hct MCHC RDW MCV MCH Lymph % (Auto) Bennett % (Auto) Bennett # Eos # Lymph # (Auto) Bennett # (Auto) Eos # (Auto) Seg Neutrophils % Seg Neuts % (Manual) Baso # (Auto) Lymphocytes % (Manual) Monocytes % (Manual) Eosinophils % (Manual) Basophils % (Manual) Seg Neutrophils # Seg Neutrophils # Man Lymphocytes # (Manual) Monocytes # (Manual) Eosinophils # (Manual) Nucleated RBC % Basophils # (Manual) PT INR APTT Heparin Anti-Xa Level ABG pH POC ABG pO2 ABG pO2 ABG HCO3 ABG O2 Saturation ABG Base Excess POC ABG pCO2 ABG Hemoglobin ABG Oxyhemoglobin ABG Chloride ABG Glucose Oxyhemoglobin Sodium Potassium Chloride Carbon Dioxide BUN Creatinine Glucose POC Glucose 118 H 125 H 127 H Lactic Acid Calcium Phosphorus Magnesium AST ALT Lactate Dehydrogenase Total Bilirubin Direct Bilirubin CK-MB (CK-2) C-Reactive Protein NT-Pro-B Natriuret Pep Total Protein Albumin Arterial Blood Glucose Urine WBC (Auto) Urine Creatinine 02/21/20 02/21/20 02/21/20 12:10 17:35 23:40 WBC RBC Hgb Hct MCHC RDW MCV MCH Lymph % (Auto) Bennett % (Auto) Bennett # Eos # Lymph # (Auto) Bennett # (Auto) Eos # (Auto) Seg Neutrophils % Seg Neuts % (Manual) Baso # (Auto) Lymphocytes % (Manual) Monocytes % (Manual) Eosinophils % (Manual) Basophils % (Manual) Seg Neutrophils # Seg Neutrophils # Man Lymphocytes # (Manual) Monocytes # (Manual) Eosinophils # (Manual) Nucleated RBC % Basophils # (Manual) PT INR APTT Heparin Anti-Xa Level ABG pH POC ABG pO2 ABG pO2 ABG HCO3 ABG O2 Saturation ABG Base Excess POC ABG pCO2 ABG Hemoglobin ABG Oxyhemoglobin ABG Chloride ABG Glucose Oxyhemoglobin Sodium Potassium Chloride Carbon Dioxide BUN Creatinine Glucose POC Glucose 128 H 113 H 125 H Lactic Acid Calcium Phosphorus Magnesium AST ALT Lactate Dehydrogenase Total Bilirubin Direct Bilirubin CK-MB (CK-2) C-Reactive Protein NT-Pro-B Natriuret Pep Total Protein Albumin Arterial Blood Glucose Urine WBC (Auto) Urine Creatinine 02/22/20 02/22/20 02/22/20 05:57 08:06 08:06 WBC RBC Hgb 10.8 L Hct 35.2 L MCHC 31 L RDW 21.8 H MCV 80 L MCH 25 L Lymph % (Auto) Bennett % (Auto) Bennett # Eos # Lymph # (Auto) Bennett # (Auto) Eos # (Auto) Seg Neutrophils % 71.5 H Seg Neuts % (Manual) Baso # (Auto) Lymphocytes % (Manual) Monocytes % (Manual) Eosinophils % (Manual) Basophils % (Manual) Seg Neutrophils # Seg Neutrophils # Man Lymphocytes # (Manual) Monocytes # (Manual) Eosinophils # (Manual) Nucleated RBC % Basophils # (Manual) PT INR APTT Heparin Anti-Xa Level ABG pH POC ABG pO2 ABG pO2 ABG HCO3 ABG O2 Saturation ABG Base Excess POC ABG pCO2 ABG Hemoglobin ABG Oxyhemoglobin ABG Chloride ABG Glucose Oxyhemoglobin Sodium 146 H Potassium Chloride Carbon Dioxide 34 H BUN 21 H Creatinine 0.4 L Glucose 149 H POC Glucose 138 H Lactic Acid Calcium Phosphorus Magnesium AST ALT Lactate Dehydrogenase Total Bilirubin Direct Bilirubin CK-MB (CK-2) C-Reactive Protein NT-Pro-B Natriuret Pep Total Protein Albumin Arterial Blood Glucose Urine WBC (Auto) Urine Creatinine 02/22/20 02/22/20 02/22/20 11:47 17:11 23:25 WBC RBC Hgb Hct MCHC RDW MCV MCH Lymph % (Auto) Bennett % (Auto) Bennett # Eos # Lymph # (Auto) Bennett # (Auto) Eos # (Auto) Seg Neutrophils % Seg Neuts % (Manual) Baso # (Auto) Lymphocytes % (Manual) Monocytes % (Manual) Eosinophils % (Manual) Basophils % (Manual) Seg Neutrophils # Seg Neutrophils # Man Lymphocytes # (Manual) Monocytes # (Manual) Eosinophils # (Manual) Nucleated RBC % Basophils # (Manual) PT INR APTT Heparin Anti-Xa Level ABG pH POC ABG pO2 ABG pO2 ABG HCO3 ABG O2 Saturation ABG Base Excess POC ABG pCO2 ABG Hemoglobin ABG Oxyhemoglobin ABG Chloride ABG Glucose Oxyhemoglobin Sodium Potassium Chloride Carbon Dioxide BUN Creatinine Glucose POC Glucose 149 H 144 H 142 H Lactic Acid Calcium Phosphorus Magnesium AST ALT Lactate Dehydrogenase Total Bilirubin Direct Bilirubin CK-MB (CK-2) C-Reactive Protein NT-Pro-B Natriuret Pep Total Protein Albumin Arterial Blood Glucose Urine WBC (Auto) Urine Creatinine 02/23/20 02/23/20 02/23/20 05:22 11:37 18:14 WBC RBC Hgb Hct MCHC RDW MCV MCH Lymph % (Auto) Bennett % (Auto) Bennett # Eos # Lymph # (Auto) Bennett # (Auto) Eos # (Auto) Seg Neutrophils % Seg Neuts % (Manual) Baso # (Auto) Lymphocytes % (Manual) Monocytes % (Manual) Eosinophils % (Manual) Basophils % (Manual) Seg Neutrophils # Seg Neutrophils # Man Lymphocytes # (Manual) Monocytes # (Manual) Eosinophils # (Manual) Nucleated RBC % Basophils # (Manual) PT INR APTT Heparin Anti-Xa Level ABG pH POC ABG pO2 ABG pO2 ABG HCO3 ABG O2 Saturation ABG Base Excess POC ABG pCO2 ABG Hemoglobin ABG Oxyhemoglobin ABG Chloride ABG Glucose Oxyhemoglobin Sodium Potassium Chloride Carbon Dioxide BUN Creatinine Glucose POC Glucose 144 H 113 H 127 H Lactic Acid Calcium Phosphorus Magnesium AST ALT Lactate Dehydrogenase Total Bilirubin Direct Bilirubin CK-MB (CK-2) C-Reactive Protein NT-Pro-B Natriuret Pep Total Protein Albumin Arterial Blood Glucose Urine WBC (Auto) Urine Creatinine 02/23/20 02/24/20 02/24/20 23:45 05:50 11:24 WBC RBC Hgb Hct MCHC RDW MCV MCH Lymph % (Auto) Bennett % (Auto) Bennett # Eos # Lymph # (Auto) Bennett # (Auto) Eos # (Auto) Seg Neutrophils % Seg Neuts % (Manual) Baso # (Auto) Lymphocytes % (Manual) Monocytes % (Manual) Eosinophils % (Manual) Basophils % (Manual) Seg Neutrophils # Seg Neutrophils # Man Lymphocytes # (Manual) Monocytes # (Manual) Eosinophils # (Manual) Nucleated RBC % Basophils # (Manual) PT INR APTT Heparin Anti-Xa Level ABG pH POC ABG pO2 ABG pO2 ABG HCO3 ABG O2 Saturation ABG Base Excess POC ABG pCO2 ABG Hemoglobin ABG Oxyhemoglobin ABG Chloride ABG Glucose Oxyhemoglobin Sodium Potassium Chloride Carbon Dioxide BUN Creatinine Glucose POC Glucose 123 H 117 H 126 H Lactic Acid Calcium Phosphorus Magnesium AST ALT Lactate Dehydrogenase Total Bilirubin Direct Bilirubin CK-MB (CK-2) C-Reactive Protein NT-Pro-B Natriuret Pep Total Protein Albumin Arterial Blood Glucose Urine WBC (Auto) Urine Creatinine 02/24/20 02/24/20 02/25/20 18:35 23:27 05:20 WBC RBC Hgb Hct MCHC RDW MCV MCH Lymph % (Auto) Bennett % (Auto) Bennett # Eos # Lymph # (Auto) Bennett # (Auto) Eos # (Auto) Seg Neutrophils % Seg Neuts % (Manual) Baso # (Auto) Lymphocytes % (Manual) Monocytes % (Manual) Eosinophils % (Manual) Basophils % (Manual) Seg Neutrophils # Seg Neutrophils # Man Lymphocytes # (Manual) Monocytes # (Manual) Eosinophils # (Manual) Nucleated RBC % Basophils # (Manual) PT INR APTT Heparin Anti-Xa Level ABG pH POC ABG pO2 ABG pO2 ABG HCO3 ABG O2 Saturation ABG Base Excess POC ABG pCO2 ABG Hemoglobin ABG Oxyhemoglobin ABG Chloride ABG Glucose Oxyhemoglobin Sodium Potassium Chloride Carbon Dioxide BUN Creatinine Glucose POC Glucose 121 H 127 H 133 H Lactic Acid Calcium Phosphorus Magnesium AST ALT Lactate Dehydrogenase Total Bilirubin Direct Bilirubin CK-MB (CK-2) C-Reactive Protein NT-Pro-B Natriuret Pep Total Protein Albumin Arterial Blood Glucose Urine WBC (Auto) Urine Creatinine 02/25/20 02/25/20 02/25/20 12:08 17:26 23:33 WBC RBC Hgb Hct MCHC RDW MCV MCH Lymph % (Auto) Bennett % (Auto) Bennett # Eos # Lymph # (Auto) Bennett # (Auto) Eos # (Auto) Seg Neutrophils % Seg Neuts % (Manual) Baso # (Auto) Lymphocytes % (Manual) Monocytes % (Manual) Eosinophils % (Manual) Basophils % (Manual) Seg Neutrophils # Seg Neutrophils # Man Lymphocytes # (Manual) Monocytes # (Manual) Eosinophils # (Manual) Nucleated RBC % Basophils # (Manual) PT INR APTT Heparin Anti-Xa Level ABG pH POC ABG pO2 ABG pO2 ABG HCO3 ABG O2 Saturation ABG Base Excess POC ABG pCO2 ABG Hemoglobin ABG Oxyhemoglobin ABG Chloride ABG Glucose Oxyhemoglobin Sodium Potassium Chloride Carbon Dioxide BUN Creatinine Glucose POC Glucose 109 H 120 H 120 H Lactic Acid Calcium Phosphorus Magnesium AST ALT Lactate Dehydrogenase Total Bilirubin Direct Bilirubin CK-MB (CK-2) C-Reactive Protein NT-Pro-B Natriuret Pep Total Protein Albumin Arterial Blood Glucose Urine WBC (Auto) Urine Creatinine 02/26/20 02/26/20 02/27/20 05:33 07:50 12:13 WBC RBC Hgb Hct MCHC RDW MCV MCH Lymph % (Auto) Bennett % (Auto) Bennett # Eos # Lymph # (Auto) Bennett # (Auto) Eos # (Auto) Seg Neutrophils % Seg Neuts % (Manual) Baso # (Auto) Lymphocytes % (Manual) Monocytes % (Manual) Eosinophils % (Manual) Basophils % (Manual) Seg Neutrophils # Seg Neutrophils # Man Lymphocytes # (Manual) Monocytes # (Manual) Eosinophils # (Manual) Nucleated RBC % Basophils # (Manual) PT INR APTT Heparin Anti-Xa Level ABG pH POC ABG pO2 ABG pO2 ABG HCO3 ABG O2 Saturation ABG Base Excess POC ABG pCO2 ABG Hemoglobin ABG Oxyhemoglobin ABG Chloride ABG Glucose Oxyhemoglobin Sodium Potassium Chloride Carbon Dioxide BUN Creatinine Glucose POC Glucose 106 H 130 H Lactic Acid Calcium Phosphorus Magnesium AST ALT Lactate Dehydrogenase Total Bilirubin Direct Bilirubin CK-MB (CK-2) C-Reactive Protein NT-Pro-B Natriuret Pep Total Protein Albumin Arterial Blood Glucose Urine WBC (Auto) > 182.0 H Urine Creatinine 02/27/20 02/27/20 02/28/20 18:20 23:33 05:01 WBC RBC Hgb Hct MCHC RDW MCV MCH Lymph % (Auto) Bennett % (Auto) Bennett # Eos # Lymph # (Auto) Bennett # (Auto) Eos # (Auto) Seg Neutrophils % Seg Neuts % (Manual) Baso # (Auto) Lymphocytes % (Manual) Monocytes % (Manual) Eosinophils % (Manual) Basophils % (Manual) Seg Neutrophils # Seg Neutrophils # Man Lymphocytes # (Manual) Monocytes # (Manual) Eosinophils # (Manual) Nucleated RBC % Basophils # (Manual) PT INR APTT Heparin Anti-Xa Level ABG pH POC ABG pO2 ABG pO2 ABG HCO3 ABG O2 Saturation ABG Base Excess POC ABG pCO2 ABG Hemoglobin ABG Oxyhemoglobin ABG Chloride ABG Glucose Oxyhemoglobin Sodium Potassium Chloride Carbon Dioxide BUN Creatinine Glucose POC Glucose 109 H 124 H 134 H Lactic Acid Calcium Phosphorus Magnesium AST ALT Lactate Dehydrogenase Total Bilirubin Direct Bilirubin CK-MB (CK-2) C-Reactive Protein NT-Pro-B Natriuret Pep Total Protein Albumin Arterial Blood Glucose Urine WBC (Auto) Urine Creatinine 02/28/20 02/28/20 02/28/20 11:54 18:16 23:03 WBC RBC Hgb Hct MCHC RDW MCV MCH Lymph % (Auto) Bennett % (Auto) Bennett # Eos # Lymph # (Auto) Bennett # (Auto) Eos # (Auto) Seg Neutrophils % Seg Neuts % (Manual) Baso # (Auto) Lymphocytes % (Manual) Monocytes % (Manual) Eosinophils % (Manual) Basophils % (Manual) Seg Neutrophils # Seg Neutrophils # Man Lymphocytes # (Manual) Monocytes # (Manual) Eosinophils # (Manual) Nucleated RBC % Basophils # (Manual) PT INR APTT Heparin Anti-Xa Level ABG pH POC ABG pO2 ABG pO2 ABG HCO3 ABG O2 Saturation ABG Base Excess POC ABG pCO2 ABG Hemoglobin ABG Oxyhemoglobin ABG Chloride ABG Glucose Oxyhemoglobin Sodium Potassium Chloride Carbon Dioxide BUN Creatinine Glucose POC Glucose 133 H 134 H 146 H Lactic Acid Calcium Phosphorus Magnesium AST ALT Lactate Dehydrogenase Total Bilirubin Direct Bilirubin CK-MB (CK-2) C-Reactive Protein NT-Pro-B Natriuret Pep Total Protein Albumin Arterial Blood Glucose Urine WBC (Auto) Urine Creatinine 02/29/20 02/29/20 02/29/20 05:24 11:34 17:12 WBC RBC Hgb Hct MCHC RDW MCV MCH Lymph % (Auto) Bennett % (Auto) Bennett # Eos # Lymph # (Auto) Bennett # (Auto) Eos # (Auto) Seg Neutrophils % Seg Neuts % (Manual) Baso # (Auto) Lymphocytes % (Manual) Monocytes % (Manual) Eosinophils % (Manual) Basophils % (Manual) Seg Neutrophils # Seg Neutrophils # Man Lymphocytes # (Manual) Monocytes # (Manual) Eosinophils # (Manual) Nucleated RBC % Basophils # (Manual) PT INR APTT Heparin Anti-Xa Level ABG pH POC ABG pO2 ABG pO2 ABG HCO3 ABG O2 Saturation ABG Base Excess POC ABG pCO2 ABG Hemoglobin ABG Oxyhemoglobin ABG Chloride ABG Glucose Oxyhemoglobin Sodium Potassium Chloride Carbon Dioxide BUN Creatinine Glucose POC Glucose 139 H 141 H 157 H Lactic Acid Calcium Phosphorus Magnesium AST ALT Lactate Dehydrogenase Total Bilirubin Direct Bilirubin CK-MB (CK-2) C-Reactive Protein NT-Pro-B Natriuret Pep Total Protein Albumin Arterial Blood Glucose Urine WBC (Auto) Urine Creatinine 02/29/20 03/01/20 03/01/20 23:35 06:00 11:53 WBC RBC Hgb Hct MCHC RDW MCV MCH Lymph % (Auto) Bennett % (Auto) Bennett # Eos # Lymph # (Auto) Bennett # (Auto) Eos # (Auto) Seg Neutrophils % Seg Neuts % (Manual) Baso # (Auto) Lymphocytes % (Manual) Monocytes % (Manual) Eosinophils % (Manual) Basophils % (Manual) Seg Neutrophils # Seg Neutrophils # Man Lymphocytes # (Manual) Monocytes # (Manual) Eosinophils # (Manual) Nucleated RBC % Basophils # (Manual) PT INR APTT Heparin Anti-Xa Level ABG pH POC ABG pO2 ABG pO2 ABG HCO3 ABG O2 Saturation ABG Base Excess POC ABG pCO2 ABG Hemoglobin ABG Oxyhemoglobin ABG Chloride ABG Glucose Oxyhemoglobin Sodium Potassium Chloride Carbon Dioxide BUN Creatinine Glucose POC Glucose 120 H 132 H 136 H Lactic Acid Calcium Phosphorus Magnesium AST ALT Lactate Dehydrogenase Total Bilirubin Direct Bilirubin CK-MB (CK-2) C-Reactive Protein NT-Pro-B Natriuret Pep Total Protein Albumin Arterial Blood Glucose Urine WBC (Auto) Urine Creatinine 03/01/20 03/01/20 03/02/20 17:36 23:16 05:12 WBC RBC Hgb Hct MCHC RDW MCV MCH Lymph % (Auto) Bennett % (Auto) Bennett # Eos # Lymph # (Auto) Bennett # (Auto) Eos # (Auto) Seg Neutrophils % Seg Neuts % (Manual) Baso # (Auto) Lymphocytes % (Manual) Monocytes % (Manual) Eosinophils % (Manual) Basophils % (Manual) Seg Neutrophils # Seg Neutrophils # Man Lymphocytes # (Manual) Monocytes # (Manual) Eosinophils # (Manual) Nucleated RBC % Basophils # (Manual) PT INR APTT Heparin Anti-Xa Level ABG pH POC ABG pO2 ABG pO2 ABG HCO3 ABG O2 Saturation ABG Base Excess POC ABG pCO2 ABG Hemoglobin ABG Oxyhemoglobin ABG Chloride ABG Glucose Oxyhemoglobin Sodium Potassium Chloride Carbon Dioxide BUN Creatinine Glucose POC Glucose 171 H 164 H 176 H Lactic Acid Calcium Phosphorus Magnesium AST ALT Lactate Dehydrogenase Total Bilirubin Direct Bilirubin CK-MB (CK-2) C-Reactive Protein NT-Pro-B Natriuret Pep Total Protein Albumin Arterial Blood Glucose Urine WBC (Auto) Urine Creatinine 03/02/20 03/02/20 03/03/20 11:42 18:01 00:06 WBC RBC Hgb Hct MCHC RDW MCV MCH Lymph % (Auto) Bennett % (Auto) Bennett # Eos # Lymph # (Auto) Bennett # (Auto) Eos # (Auto) Seg Neutrophils % Seg Neuts % (Manual) Baso # (Auto) Lymphocytes % (Manual) Monocytes % (Manual) Eosinophils % (Manual) Basophils % (Manual) Seg Neutrophils # Seg Neutrophils # Man Lymphocytes # (Manual) Monocytes # (Manual) Eosinophils # (Manual) Nucleated RBC % Basophils # (Manual) PT INR APTT Heparin Anti-Xa Level ABG pH POC ABG pO2 ABG pO2 ABG HCO3 ABG O2 Saturation ABG Base Excess POC ABG pCO2 ABG Hemoglobin ABG Oxyhemoglobin ABG Chloride ABG Glucose Oxyhemoglobin Sodium Potassium Chloride Carbon Dioxide BUN Creatinine Glucose POC Glucose 150 H 156 H 156 H Lactic Acid Calcium Phosphorus Magnesium AST ALT Lactate Dehydrogenase Total Bilirubin Direct Bilirubin CK-MB (CK-2) C-Reactive Protein NT-Pro-B Natriuret Pep Total Protein Albumin Arterial Blood Glucose Urine WBC (Auto) Urine Creatinine 03/03/20 03/03/20 03/03/20 03:31 11:20 16:55 WBC RBC Hgb Hct MCHC RDW MCV MCH Lymph % (Auto) Bennett % (Auto) Bennett # Eos # Lymph # (Auto) Bennett # (Auto) Eos # (Auto) Seg Neutrophils % Seg Neuts % (Manual) Baso # (Auto) Lymphocytes % (Manual) Monocytes % (Manual) Eosinophils % (Manual) Basophils % (Manual) Seg Neutrophils # Seg Neutrophils # Man Lymphocytes # (Manual) Monocytes # (Manual) Eosinophils # (Manual) Nucleated RBC % Basophils # (Manual) PT INR APTT Heparin Anti-Xa Level ABG pH POC ABG pO2 ABG pO2 ABG HCO3 ABG O2 Saturation ABG Base Excess POC ABG pCO2 ABG Hemoglobin ABG Oxyhemoglobin ABG Chloride ABG Glucose Oxyhemoglobin Sodium Potassium Chloride Carbon Dioxide BUN Creatinine Glucose POC Glucose 164 H 125 H 211 H Lactic Acid Calcium Phosphorus Magnesium AST ALT Lactate Dehydrogenase Total Bilirubin Direct Bilirubin CK-MB (CK-2) C-Reactive Protein NT-Pro-B Natriuret Pep Total Protein Albumin Arterial Blood Glucose Urine WBC (Auto) Urine Creatinine 03/04/20 03/04/20 03/04/20 00:29 05:20 12:09 WBC RBC Hgb Hct MCHC RDW MCV MCH Lymph % (Auto) Bennett % (Auto) Bennett # Eos # Lymph # (Auto) Bennett # (Auto) Eos # (Auto) Seg Neutrophils % Seg Neuts % (Manual) Baso # (Auto) Lymphocytes % (Manual) Monocytes % (Manual) Eosinophils % (Manual) Basophils % (Manual) Seg Neutrophils # Seg Neutrophils # Man Lymphocytes # (Manual) Monocytes # (Manual) Eosinophils # (Manual) Nucleated RBC % Basophils # (Manual) PT INR APTT Heparin Anti-Xa Level ABG pH POC ABG pO2 ABG pO2 ABG HCO3 ABG O2 Saturation ABG Base Excess POC ABG pCO2 ABG Hemoglobin ABG Oxyhemoglobin ABG Chloride ABG Glucose Oxyhemoglobin Sodium Potassium Chloride Carbon Dioxide BUN Creatinine Glucose POC Glucose 169 H 154 H 197 H Lactic Acid Calcium Phosphorus Magnesium AST ALT Lactate Dehydrogenase Total Bilirubin Direct Bilirubin CK-MB (CK-2) C-Reactive Protein NT-Pro-B Natriuret Pep Total Protein Albumin Arterial Blood Glucose Urine WBC (Auto) Urine Creatinine 03/04/20 03/04/20 03/04/20 18:00 20:38 20:38 WBC RBC Hgb 10.1 L Hct 32.7 L MCHC 31 L RDW 24.7 H MCV 79 L MCH 24 L Lymph % (Auto) Bennett % (Auto) 8.9 H Bennett # Eos # Lymph # (Auto) Bennett # (Auto) Eos # (Auto) Seg Neutrophils % Seg Neuts % (Manual) Baso # (Auto) Lymphocytes % (Manual) Monocytes % (Manual) Eosinophils % (Manual) Basophils % (Manual) Seg Neutrophils # Seg Neutrophils # Man Lymphocytes # (Manual) Monocytes # (Manual) Eosinophils # (Manual) Nucleated RBC % Basophils # (Manual) PT INR APTT Heparin Anti-Xa Level ABG pH POC ABG pO2 ABG pO2 ABG HCO3 ABG O2 Saturation ABG Base Excess POC ABG pCO2 ABG Hemoglobin ABG Oxyhemoglobin ABG Chloride ABG Glucose Oxyhemoglobin Sodium 136 L Potassium Chloride Carbon Dioxide BUN 25 H Creatinine 0.5 L Glucose 148 H POC Glucose 146 H Lactic Acid Calcium Phosphorus Magnesium AST ALT Lactate Dehydrogenase Total Bilirubin Direct Bilirubin CK-MB (CK-2) C-Reactive Protein NT-Pro-B Natriuret Pep Total Protein Albumin Arterial Blood Glucose Urine WBC (Auto) Urine Creatinine 03/04/20 03/05/20 03/05/20 23:17 05:44 11:32 WBC RBC Hgb Hct MCHC RDW MCV MCH Lymph % (Auto) Bennett % (Auto) Bennett # Eos # Lymph # (Auto) Bennett # (Auto) Eos # (Auto) Seg Neutrophils % Seg Neuts % (Manual) Baso # (Auto) Lymphocytes % (Manual) Monocytes % (Manual) Eosinophils % (Manual) Basophils % (Manual) Seg Neutrophils # Seg Neutrophils # Man Lymphocytes # (Manual) Monocytes # (Manual) Eosinophils # (Manual) Nucleated RBC % Basophils # (Manual) PT INR APTT Heparin Anti-Xa Level ABG pH POC ABG pO2 ABG pO2 ABG HCO3 ABG O2 Saturation ABG Base Excess POC ABG pCO2 ABG Hemoglobin ABG Oxyhemoglobin ABG Chloride ABG Glucose Oxyhemoglobin Sodium Potassium Chloride Carbon Dioxide BUN Creatinine Glucose POC Glucose 139 H 155 H 124 H Lactic Acid Calcium Phosphorus Magnesium AST ALT Lactate Dehydrogenase Total Bilirubin Direct Bilirubin CK-MB (CK-2) C-Reactive Protein NT-Pro-B Natriuret Pep Total Protein Albumin Arterial Blood Glucose Urine WBC (Auto) Urine Creatinine 03/05/20 17:45 WBC RBC Hgb Hct MCHC RDW MCV MCH Lymph % (Auto) Bennett % (Auto) Bennett # Eos # Lymph # (Auto) Bennett # (Auto) Eos # (Auto) Seg Neutrophils % Seg Neuts % (Manual) Baso # (Auto) Lymphocytes % (Manual) Monocytes % (Manual) Eosinophils % (Manual) Basophils % (Manual) Seg Neutrophils # Seg Neutrophils # Man Lymphocytes # (Manual) Monocytes # (Manual) Eosinophils # (Manual) Nucleated RBC % Basophils # (Manual) PT INR APTT Heparin Anti-Xa Level ABG pH POC ABG pO2 ABG pO2 ABG HCO3 ABG O2 Saturation ABG Base Excess POC ABG pCO2 ABG Hemoglobin ABG Oxyhemoglobin ABG Chloride ABG Glucose Oxyhemoglobin Sodium Potassium Chloride Carbon Dioxide BUN Creatinine Glucose POC Glucose 171 H Lactic Acid Calcium Phosphorus Magnesium AST ALT Lactate Dehydrogenase Total Bilirubin Direct Bilirubin CK-MB (CK-2) C-Reactive Protein NT-Pro-B Natriuret Pep Total Protein Albumin Arterial Blood Glucose Urine WBC (Auto) Urine Creatinine Allied health notes reviewed: RT
[2020-03-06] MEDS: INSULIN REGULAR, HUMAN 100 UNIT/ML 3ML VIAL SUB-Q SCH ×4 (00:48→19:31)
[2020-03-06] MEDS: METOPROLOL TARTRATE 25 MG TAB FEEDTUBE SCH ×2 (09:17→22:00)
[2020-03-06] MEDS: QUEtiapine 100 MG TAB PO SCH ×2 (09:25→22:00)
[2020-03-06] MEDS: MIDODRINE 5 MG TAB PO SCH ×3 (09:25→17:59)
[2020-03-06] MEDS: LANSOPRAZOLE 30 MG SOLUTAB FEEDTUBE SCH (09:25)
[2020-03-06] MEDS: CLOPIDOGREL 75 MG TAB PO SCH (09:25)
[2020-03-06] MEDS: GLYCOPYRROLATE 2 MG TAB PO SCH ×3 (09:26→22:00)
[2020-03-06] MEDS: DOCUSATE SODIUM 100 MG/10 ML ORAL LIQD FEEDTUBE SCH ×2 (09:26→21:59)
[2020-03-06] MEDS: APIXABAN 5 MG TAB PO SCH ×2 (09:26→21:59)
--- NOTE | 2020-03-06 15:39 | Progress Note ---
Assessment and Plan The high probability of a clinically significant, sudden or life threatening deterioration of the [Respiratory, cardiovascular & neurological] system(s) required my full and direct attention, intervention and personal management. The aggregate critical care time was [32] minutes without overlap. Time includes spent on [x] Data Review and interpretation [x] Patient assessment and monitoring of vital signs [x] Documentation [x] Medication orders and management Assessment and Plan --Ischemic cardiomyopathy Cardiology is following, status post cardiac catheterization on 01/22/2020; Coronary artery disease status post PCI and stent to the LAD Continue current cardiac medications --Acute on chronic hypoxemic respiratory failure; Patient has tracheostomy on vent Continue nebulizers, , trach care Wean off ventilator as tolerated Pulmonary critical following --Acute exacerbation of COPD; Patient is currently on ventilatory support Continue nebulizers --Left lower lobe PE; Continue Eliquis, ventilatory support --Acute right lower extremity DVT; Patient is on Eliquis --Bilateral multifocal pneumonia/community-acquired Completed antibiotics, improved --Severe sepsis/bilateral pneumonia: Completed antibiotics COVID-19 test; 11/24/2019; negative 11/26/2019; negative 12/29/2019: Negative --Paroxysmal atrial fibrillation; Now rate controlled, Stable on amiodarone and Eliquis --Acute on chronic combined systolic and diastolic congestive heart failure Ischemic cardiomyopathy left ventricular ejection fraction 40 to 45% --H/o CAD [[facility] 12/2018 in-stent restenosis] Patient is stable on current cardiac medications --Hypertensive emergency; present on admission Reasonable blood pressures, continue current antihypertensives As needed medications --History of alcohol abuse/alcohol withdrawal; Was on CIWA protocol, now stable --Oropharyngeal dysphagia; status post PEG placement Continue PEG feeds per protocol --History of partial small bowel obstruction; resolved --Obesity; BMI 34.7 Patient needs weight reduction when medically stable --Severe protein calorie malnutrition/hypoalbuminemia Nutrition supplements, dietitian following, PEG feeds --DVT prophylaxis;Eliquis --Full CODE STATUS Subjective Date of service: 03/06/20 Principal diagnosis: Ac hypoxemic resp failure; Pneumonia; PUI COVID-19; CHF; COPD; HTN Interval history: Patient admitted for acute hypoxic respiratory failure, S/P tracheostomy.Patient sleeping. Resting on assist control mechanical ventilation, rate 12,Tidal volume 450, FIO2 35%, PEEP 6 and O2 saturation running 100%. ABG FIO2 30%. 10/14; Pt stable. NGT output 650cc over 24 hours, bilious. No f/c, WBC within normal limits. cont NG suction and cont to hold TF 01/06: Abs series - mild improvement in small bowel distension in mid abdomen, normal gas/stool pattern in colon. NGT in duodenum. Continue to hold tube feeding, maintain NG tube with low intermittent suction. Patient's was updated by phone. Continue to provide supportive care and monitor clinically. 01/07: +BMs today and NGT/PEG output appears more gastric today. Plan to clamp NGT, if tolerates start TF from tomorrow. cont supportive care. 01/08; Gastric output decreased over last 24 hours. NGT has been clamped x 24 hours. plan to dc NGT and to start TTF via PEG - vital HF @10cc/hr 01/09: clinically stable, tolerating TF. monitor BMP, wean off from vent as tolerated clinically stable, on TF. wean off vent as tolerated 01/11: wean off from vent, cont to monitor, on TF 01/12: wean off from vent, cont to monitor, on TF. need placement - unfunded 01/13; remains on ventilatory support, unable to wean, DC planning possible LTAC , unfunded 01/14; patient of ventilatory support, T-piece tracheostomy on oxygen, LTAC placement per case management 01/16; tracheostomy, patient on full ventilatory support, wean off vent support as tolerated, pending LTAC placement, social financial issues 01/17; awaiting LTAC placement, insurance and financial issues 01/18; patient tracheostomy remains on ventilatory support 01/19; wean off ventilator as tolerated 01/20; remains on ventilatory support, patient complains of intermittent chest pain, cardiology recommend left heart catheterization tomorrow 01/22/2020. Patient for left heart catheterization per cardiology. Patient remains on AC mode ventilation rate 12, tidal volume 450, FiO2 30% and PEEP of 6. Continue tracheostomy care, airway management and secretion control. 01/23/2020. Cardiac catheterization completed yesterday revealed widely patent previous LAD stent with mild nonobstructive atherosclerosis of the right mid coronary artery and rest of the coronary system was without significant atherosclerosis. The left ventricle ejection fraction was mildly impaired at 40 to 45%. There was some hypokinesis of the basal inferior wall suggestive of previous or recent infarct. Continue GDMT for coronary artery disease including beta blockers, topical nitrates, statin and Plavix. Continue Eliquis for paroxysmal atrial fibrillation and PE. Continue diuresis with Lasix and follow electrolytes closely. Continue Robinul and scopolamine for secretion control and daily SBT per pulmonary. Also, continue bronchodilators and routine trach care/airway management. T-piece trials per pulmonary as tolerated. 01/24/2020. Recent cardiac catheterization has documented widely patent left anterior descending artery stent with minimal nonobstructive diffuse coronary artery disease in the rest of the coronary arteries. Evidence of ischemic cardiomyopathy with inferior wall hypokinesis. Continue with guideline directed medical therapy. Continue Robinul and scopolamine for secretion control and daily SBT per pulmonary. Continue bronchodilators and routine trach care/airway management. T-piece trials per pulmonary as tolerated. 01/25/2020. Continue with guideline directed medical therapy for systolic heart failure. Cardiac catheterization revealed evidence of ischemic cardiomyopathy with inferior wall hypokinesis (EF 40-45%). Patient currently on T-piece with oxygen 10 L/min FiO2 40%. Continue Robinul and scopolamine for secretion control. Continue bronchodilators and routine trach care/airway management. 02/03: Mental status more improved, agree with Reglan will change to IV scheduled for two days, no new vomiting. Pseudomonas A in Sputum. 02/04: Clinical improving, amiodarone discontinued due to LFTs, continue Metoprolol.d/w GI, started on Golytely to clear impaction. Started on dialy Miralax. 02/05: Continue supportive care. Noted bowel movement, continue bowel regimen 02/06: Cardiology input noted beta-hebert increased for better suppression of atrial fibrillation. Continue to monitor, no other evidence of nausea vomiting noted. Discussed with respiratory therapist will be continued on weaning protocol with pressure support today. 02/07: Patient successfully weaned off the ventilator, No new complaints, continue monitoring, BM noted, Discussed with pulmonary, 02/08; tracheostomy on T-piece, patient is more alert and awake today 02/09; clinically no change, tracheostomy on vent 02/10; tracheostomy on vent, full CODE STATUS, poor prognosis, 02/11; clinically no change, remains on ventilatory support, full CODE STATUS, discussed with spouse Ms. Paulette Araiza extensively today 02/12. Patient resting comfortably no change on vent with tracheostomy. Still unable to wean. Some increased crackles today. 02/13: Still unable to wean from the vent. Overall prognosis remains extremely poor. 02/14; remains critically ill, tracheostomy on vent, unable to wean, poor prognosis, full CODE STATUS 02/15; patient is more alert and awake today, chronic tracheostomy on T-piece, continue current management DC planning per case management. Disposition very difficult due to lack of resources and insurance 02/17/2020. Patient remains on mechanical ventilation and tolerating PSV trials. Patient currently with PSV 10/6 at FiO2 of 30%. 02/18/2020. Patient currently on PSV 10/6 with FiO2 of 40%. 40% T-piece trial was attempted but patient unable to tolerate due to saturations dropping into the 80s and heart rate in the 140s. Therefore, patient placed back on PSV. Continue anticoagulation with Eliquis. Continue secretion control with Robinul and scopolamine. Continue rate control with metoprolol and digoxin. 02/19/2020. Patient currently on PSV 10/6 with FiO2 of 30%. T-piece trial attempted yesterday but patient did not tolerate. Continue T-piece trials as tolerated. Continue anticoagulation with Eliquis. Continue secretion control with Robinul and scopolamine. Continue rate control with metoprolol and digoxin. Continue to follow with case management with regards to discharge planning. 02/20/2020. Patient continues to tolerate PSV 10/6. Continue rate control with metoprolol and digoxin. Amiodarone discontinued due to elevated liver transaminases. Eliquis for anticoagulation acute PE/DVT. 02/21/2020. Patient continues to tolerate PSV 10/6 at FiO2 of 30%. Continue rate control with metoprolol and digoxin. Amiodarone discontinued due to elevated liver transaminases. Eliquis for anticoagulation acute PE/DVT. 02/22/2020. Patient continues to tolerate PSV 10/6 at FiO2 of 30%. Continue rate control with metoprolol and digoxin. Amiodarone discontinued due to elevated liver transaminases. Eliquis for anticoagulation acute PE/DVT. 02/22. Awake and alert on vent. Vitals stable. 02/23. Awake and alert on vent. Requests for ice. Vitals stable 02/24. Trach to vent. Continue rate control with metoprolol and digoxin. Amiodarone discontinued due to elevated liver transaminases. Eliquis for anticoagulation of acute PE/DVT. Transferred to IM 02/25. Seen in [facility]MCU. Requests for ice. RN to provide a cube of ice. Vitals stable. 02/26. No change in medical condition. Slightly tachy this AM. Will monitor. 02/27. Cardiology started him on a beta hebert. Still on vent 02/28. Discharge planning as per media marketing coordinator. Still on vent. Tachycardia noted. 03/01/2020; patient is tachycardic, still on the vent. Discharge management as per media marketing coordinator. 03/02/2020; patient is on a vent and trach. Discharge is per media marketing coordinator. 03/03/2012; patient is on vent and trach patient is alert and oriented. 03/04/2020; patient is on vent and trach, patient is alert. Discharge is per pulmonary. 03/05/2020; patient is on vent and trach, patient is alert. Discharge is per pulmonary. 03/06/2020 patient is on vent and trach patient is alert, possible LTAC placement Objective - Constitutional Vitals: Vital Signs - 12hr 03/06/20 03/06/20 03/06/20 03:57 03:58 04:00 Temperature 97.4 F L Pulse Rate 115 H 111 H 109 H Respiratory 14 Rate Blood Pressure 97/79 93/73 O2 Sat by Pulse 100 100 Oximetry O2 Sat by Pulse 100 Oximetry [ Assessment] 03/06/20 03/06/20 03/06/20 05:00 06:00 07:00 Temperature Pulse Rate 109 H 103 H 99 H Respiratory 19 16 15 Rate Blood Pressure 97/71 97/71 104/75 O2 Sat by Pulse 99 99 100 Oximetry O2 Sat by Pulse Oximetry [ Assessment] 03/06/20 03/06/20 03/06/20 07:12 08:00 09:00 Temperature 97.9 F Pulse Rate 111 H 110 H 111 H Respiratory 18 19 Rate Blood Pressure 104/75 100/79 101/77 O2 Sat by Pulse 100 99 99 Oximetry O2 Sat by Pulse Oximetry [ Assessment] 03/06/20 03/06/20 03/06/20 10:00 11:00 11:05 Temperature Pulse Rate 114 H 106 H 112 H Respiratory 21 17 Rate Blood Pressure 113/81 109/78 109/78 O2 Sat by Pulse 99 100 99 Oximetry O2 Sat by Pulse Oximetry [ Assessment] 03/06/20 12:00 Temperature 97.4 F L Pulse Rate 108 H Respiratory 17 Rate Blood Pressure 102/80 O2 Sat by Pulse 99 Oximetry O2 Sat by Pulse Oximetry [ Assessment] General appearance: Present: no acute distress, well-nourished - EENT Eyes: PERRL, EOM intact ENT: hearing intact, clear oral mucosa Ears: bilateral: normal - Neck Neck: supple, normal ROM - Respiratory Respiratory effort: normal Respiratory: bilateral: CTA - Breasts Breasts: normal - Cardiovascular Heart rate: 78 Rhythm: regular Heart Sounds: Present: S1 & S2. Absent: gallop, rub Extremities: no ischemia, pulses intact, No edema, normal color, Full ROM - Gastrointestinal General gastrointestinal: Present: soft, non-tender, non-distended, normal bowel sounds - Genitourinary Male genitourinary: normal - Integumentary Integumentary: clear, warm, dry - Musculoskeletal Musculoskeletal: 1, strength equal bilaterally - Neurologic Neurologic: moves all extremities - Psychiatric Psychiatric: memory intact, appropriate mood/affect, intact judgment & insight - Labs CBC & Chem 7: 03/04/20 20:38 03/04/20 20:38 Labs: Abnormal lab results 03/05/20 03/05/20 03/06/20 Range/Units 17:45 23:18 12:16 POC Glucose 171 H 114 H 155 H (70-105) mg/dL HEART Score - HEART Score Troponin: Troponin T < 0.010 ng/mL (0.00-0.029) 01/19/20 01:35
[2020-03-06] MEDS: DIGOXIN 0.125 MG TAB PO SCH (17:59)
--- NOTE | 2020-03-06 21:34 | Progress Note ---
Assessment and Plan Patient admitted for acute hypoxic respiratory failure, S/P tracheostomy.Patient sleeping. Resting on assist control mechanical ventilation, rate 12,Tidal volume 450, FIO2 35%, PEEP 6 and O2 saturation running 100%. ABG FIO2 30%. ABG pH 7.461 pH Units (7.350-7.450) H 02/20/20 06:45 POC ABG pCO2 34.8 mmHg (32.0-48.0) 02/11/20 14:11 ABG pCO2 47.8 mm Hg 02/20/20 06:45 POC ABG pO2 77.7 mmHg (83-108) L 02/11/20 14:11 ABG pO2 88.7 mm Hg (80.0-90.0) 02/20/20 06:45 POC ABG HCO3 26.7 02/11/20 14:11 ABG O2 Saturation 97.2 % (95.0-99.0) 02/20/20 06:45 Patient afebrile. No leukocytosis. Chest xray done 03/01/20 reported Essentially unchanged airspace disease when compared to 02/18/2020. Patient presently not on any antibiotics. Patient is on Apixaban and prevacid. I spent critical care time of 35 minutes on this patient review the chart, ob tain history , examining the patient, review chest xray, labs, talking to the nursing staff and respiratory therapy and work out plan of treatment un this critically ill patient. - Patient Problems (1) Acute respiratory failure Current Visit: Yes Status: Acute Plan to address problem: Patient is on mechanical ventilation assist control, rate 12, tidal volume 450,, FIO2 35%, PEEP 6. Albuterol/atrovent aerosol treatments. Continue apixaban Continue prevacid. (2) COPD exacerbation Current Visit: No Status: Acute Plan to address problem: Patient is on mechanical ventilation assist control, rate 12, tidal volume 450,, FIO2 35%, PEEP 6. Albuterol/atrovent aerosol treatments. Continue apixaban Continue Prevacid (3) Bilateral pneumonia Current Visit: Yes Status: Acute Plan to address problem: Chest xray 03/01/20 Essentially unchanged airspace disease when compared to 02/18/2020. Patient afebrile. No leukocytosis. (4) CHF exacerbation Current Visit: Yes Status: Acute Plan to address problem: Management as per cardiology. (5) Cardiomyopathy Current Visit: Yes Status: Acute Plan to address problem: Management as per cardiology. (6) Pancreatic lesion Current Visit: Yes Status: Acute Plan to address problem: Management as per primary care. (7) Paroxysmal atrial fibrillation Current Visit: Yes Status: Acute Plan to address problem: Patient is on apixaban. Management as per cardiology. (8) CVA (cerebral vascular accident) Current Visit: No Status: Acute Qualifiers: Precerebral and cerebral artery: middle cerebral artery Laterality of affected vessel: right Plan to address problem: Management as per primary care. (9) Cocaine dependence Current Visit: No Status: Acute Plan to address problem: Management as per primary care. (10) HTN (hypertension) Current Visit: No Status: Acute Qualifiers: Hypertension type: essential hypertension Qualified Code(s): I10 - Essential (primary) hypertension Plan to address problem: Management as per primary care. (11) Nicotine dependence Current Visit: No Status: Acute Qualifiers: Nicotine product type: cigarettes Substance use status: in withdrawal Qualified Code(s): F17.213 - Nicotine dependence, cigarettes, with withdrawal Plan to address problem: Counseled to stop smoking. (12) Obesity hypoventilation syndrome Current Visit: No Status: Acute Plan to address problem: [place] S/P tracheostomy and on mechanical ventilation. Subjective Date of service: 03/06/20 Principal diagnosis: Ac hypoxemic resp failure; Pneumonia; PUI COVID-19; CHF; COPD; HTN Interval history: Patient admitted for acute hypoxic respiratory failure, S/P tracheostomy.Patient sleeping. Resting on assist control mechanical ventilation, rate 12,Tidal volume 450, FIO2 35%, PEEP 6 and O2 saturation running 100%. ABG FIO2 30%. ABG pH 7.461 pH Units (7.350-7.450) H 02/20/20 06:45 POC ABG pCO2 34.8 mmHg (32.0-48.0) 02/11/20 14:11 ABG pCO2 47.8 mm Hg 02/20/20 06:45 POC ABG pO2 77.7 mmHg (83-108) L 02/11/20 14:11 ABG pO2 88.7 mm Hg (80.0-90.0) 02/20/20 06:45 POC ABG HCO3 26.7 02/11/20 14:11 ABG O2 Saturation 97.2 % (95.0-99.0) 02/20/20 06:45 Patient afebrile. No leukocytosis. Chest xray done 03/01/20 reported Essentially unchanged airspace disease when compared to 02/18/2020. Patient presently not on any antibiotics. Patient is on Apixaban and prevacid. Objective Vital Signs - 12hr 03/06/20 03/06/20 03/06/20 10:00 11:00 11:05 Temperature Pulse Rate 114 H 106 H 112 H Respiratory 21 17 Rate Blood Pressure 113/81 109/78 109/78 O2 Sat by Pulse 99 100 99 Oximetry O2 Sat by Pulse Oximetry [ Assessment] 03/06/20 03/06/20 03/06/20 12:00 13:00 14:00 Temperature 97.4 F L Pulse Rate 108 H 108 H 111 H Respiratory 17 21 17 Rate Blood Pressure 102/80 112/87 112/87 O2 Sat by Pulse 99 99 98 Oximetry O2 Sat by Pulse Oximetry [ Assessment] 03/06/20 03/06/20 03/06/20 15:00 15:36 16:00 Temperature 97.4 F L Pulse Rate 101 H 131 H 120 H Respiratory 18 18 Rate Blood Pressure 108/80 108/80 108/80 O2 Sat by Pulse 100 100 99 Oximetry O2 Sat by Pulse Oximetry [ Assessment] 03/06/20 03/06/20 03/06/20 16:21 17:00 18:00 Temperature Pulse Rate 121 H 117 H Respiratory 18 19 Rate Blood Pressure 112/83 112/83 O2 Sat by Pulse 99 100 Oximetry O2 Sat by Pulse 97 Oximetry [ Assessment] 03/06/20 03/06/20 03/06/20 18:56 19:00 20:29 Temperature 97.5 F L Pulse Rate 112 H 98 H Respiratory 19 Rate Blood Pressure 111/71 O2 Sat by Pulse 99 Oximetry O2 Sat by Pulse Oximetry [ Assessment] 03/06/20 20:43 Temperature Pulse Rate 111 H Respiratory Rate Blood Pressure 102/81 O2 Sat by Pulse 98 Oximetry O2 Sat by Pulse 100 Oximetry [ Assessment] Constitutional: no acute distress, asleep, other (Patient is resting on mechanical ventilation, awake and makes needs know by mouthing words and phonating around trach) Eyes: non-icteric ENT: oropharynx moist, other (+ midline tracheostomy) Neck: supple, no JVD Effort: mildly labored Ascultation: Bilateral: diminished breath sounds, rhonchi (scant), other (mild tracheal secretions ) Percussion: Bilateral: not dull Cardiovascular: irregular rhythm Gastrointestinal: normoactive bowel sounds, soft, non-tender, non-distended, other (protuberant; PEG in place) Integumentary: normal Extremities: no cyanosis, pulses normal, no ischemia or petechiae, edema (bilateral lower extemities) Neurologic: non-focal exam (moves extremities), pupils equal and round, other (Patient sleeping.) Psychiatric: mood appropriate, anxious, other CBC and BMP: 03/04/20 20:38 03/04/20 20:38 ABG, PT/INR, D-dimer: ABG ABG pH 7.461 pH Units (7.350-7.450) H 02/20/20 06:45 POC ABG pCO2 34.8 mmHg (32.0-48.0) 02/11/20 14:11 ABG pCO2 47.8 mm Hg 02/20/20 06:45 POC ABG pO2 77.7 mmHg (83-108) L 02/11/20 14:11 ABG pO2 88.7 mm Hg (80.0-90.0) 02/20/20 06:45 POC ABG HCO3 26.7 02/11/20 14:11 ABG O2 Saturation 97.2 % (95.0-99.0) 02/20/20 06:45 PT/INR, D-dimer PT 27.0 Sec. (12.2-14.9) H 02/07/20 15:03 INR 2.46 (0.87-1.13) H 02/07/20 15:03 Abnormal lab findings: Abnormal Labs 11/24/19 11/24/19 11/24/19 02:53 02:53 03:45 WBC 14.3 H RBC Hgb Hct MCHC RDW 17.2 H MCV MCH Lymph % (Auto) [place] % (Auto) [place] # Eos # Lymph # (Auto) [place] # (Auto) Eos # (Auto) Seg Neutrophils % Seg Neuts % (Manual) Baso # (Auto) Lymphocytes % (Manual) Monocytes % (Manual) Eosinophils % (Manual) Basophils % (Manual) Seg Neutrophils # Seg Neutrophils # Man 8.3 H Lymphocytes # (Manual) Monocytes # (Manual) 0.9 H Eosinophils # (Manual) Nucleated RBC % Basophils # (Manual) PT INR APTT Heparin Anti-Xa Level ABG pH 7.313 L POC ABG pO2 ABG pO2 102.8 H ABG HCO3 ABG O2 Saturation ABG Base Excess -2.9 L POC ABG pCO2 ABG Hemoglobin ABG Oxyhemoglobin ABG Chloride ABG Glucose Oxyhemoglobin 93.9 L Sodium Potassium Chloride Carbon Dioxide BUN Creatinine Glucose 195 H POC Glucose Lactic Acid Calcium Phosphorus Magnesium AST ALT Lactate Dehydrogenase Total Bilirubin Direct Bilirubin CK-MB (CK-2) 4.3 H C-Reactive Protein NT-Pro-B Natriuret Pep 1181 H Total Protein Albumin Arterial Blood Glucose Urine WBC (Auto) Urine Creatinine 11/24/19 11/24/19 11/24/19 04:53 04:53 10:37 WBC RBC Hgb Hct MCHC RDW MCV MCH Lymph % (Auto) [place] % (Auto) [place] # Eos # Lymph # (Auto) [place] # (Auto) Eos # (Auto) Seg Neutrophils % Seg Neuts % (Manual) Baso # (Auto) Lymphocytes % (Manual) Monocytes % (Manual) Eosinophils % (Manual) Basophils % (Manual) Seg Neutrophils # Seg Neutrophils # Man Lymphocytes # (Manual) Monocytes # (Manual) Eosinophils # (Manual) Nucleated RBC % Basophils # (Manual) PT INR APTT Heparin Anti-Xa Level ABG pH POC ABG pO2 ABG pO2 ABG HCO3 ABG O2 Saturation ABG Base Excess POC ABG pCO2 ABG Hemoglobin ABG Oxyhemoglobin ABG Chloride ABG Glucose Oxyhemoglobin Sodium Potassium Chloride Carbon Dioxide BUN Creatinine Glucose 162 H POC Glucose Lactic Acid 2.40 H* 2.50 H* Calcium Phosphorus Magnesium AST ALT Lactate Dehydrogenase 240 H Total Bilirubin Direct Bilirubin CK-MB (CK-2) C-Reactive Protein NT-Pro-B Natriuret Pep Total Protein Albumin Arterial Blood Glucose Urine WBC (Auto) Urine Creatinine 11/24/19 11/24/19 11/24/19 12:21 14:50 19:54 WBC RBC Hgb Hct MCHC RDW MCV MCH Lymph % (Auto) [place] % (Auto) [place] # Eos # Lymph # (Auto) [place] # (Auto) Eos # (Auto) Seg Neutrophils % Seg Neuts % (Manual) Baso # (Auto) Lymphocytes % (Manual) Monocytes % (Manual) Eosinophils % (Manual) Basophils % (Manual) Seg Neutrophils # Seg Neutrophils # Man Lymphocytes # (Manual) Monocytes # (Manual) Eosinophils # (Manual) Nucleated RBC % Basophils # (Manual) PT INR APTT Heparin Anti-Xa Level ABG pH POC ABG pO2 ABG pO2 ABG HCO3 ABG O2 Saturation ABG Base Excess POC ABG pCO2 ABG Hemoglobin ABG Oxyhemoglobin ABG Chloride ABG Glucose Oxyhemoglobin Sodium Potassium Chloride Carbon Dioxide BUN Creatinine Glucose POC Glucose 145 H 143 H 124 H Lactic Acid Calcium Phosphorus Magnesium AST ALT Lactate Dehydrogenase Total Bilirubin Direct Bilirubin CK-MB (CK-2) C-Reactive Protein NT-Pro-B Natriuret Pep Total Protein Albumin Arterial Blood Glucose Urine WBC (Auto) Urine Creatinine 11/25/19 11/25/19 11/25/19 00:18 03:18 05:11 WBC 13.7 H RBC Hgb Hct MCHC RDW 17.1 H MCV MCH Lymph % (Auto) 10.8 L [place] % (Auto) 8.7 H [place] # 1.2 H Eos # Lymph # (Auto) [place] # (Auto) Eos # (Auto) Seg Neutrophils % 80.2 H Seg Neuts % (Manual) Baso # (Auto) Lymphocytes % (Manual) Monocytes % (Manual) Eosinophils % (Manual) Basophils % (Manual) Seg Neutrophils # 11.0 H Seg Neutrophils # Man Lymphocytes # (Manual) Monocytes # (Manual) Eosinophils # (Manual) Nucleated RBC % Basophils # (Manual) PT INR APTT Heparin Anti-Xa Level ABG pH 7.333 L POC ABG pO2 ABG pO2 61.2 L ABG HCO3 ABG O2 Saturation 90.2 L ABG Base Excess POC ABG pCO2 ABG Hemoglobin 13.7 L ABG Oxyhemoglobin ABG Chloride ABG Glucose Oxyhemoglobin 88.2 L Sodium Potassium Chloride Carbon Dioxide BUN Creatinine Glucose POC Glucose 109 H Lactic Acid Calcium Phosphorus Magnesium AST ALT Lactate Dehydrogenase Total Bilirubin Direct Bilirubin CK-MB (CK-2) C-Reactive Protein NT-Pro-B Natriuret Pep Total Protein Albumin Arterial Blood Glucose Urine WBC (Auto) Urine Creatinine 11/25/19 11/25/19 11/26/19 05:11 11:40 03:12 WBC RBC Hgb Hct MCHC RDW MCV MCH Lymph % (Auto) [place] % (Auto) [place] # Eos # Lymph # (Auto) [place] # (Auto) Eos # (Auto) Seg Neutrophils % Seg Neuts % (Manual) Baso # (Auto) Lymphocytes % (Manual) Monocytes % (Manual) Eosinophils % (Manual) Basophils % (Manual) Seg Neutrophils # Seg Neutrophils # Man Lymphocytes # (Manual) Monocytes # (Manual) Eosinophils # (Manual) Nucleated RBC % Basophils # (Manual) PT INR APTT Heparin Anti-Xa Level ABG pH POC ABG pO2 ABG pO2 155.1 H ABG HCO3 27.8 H ABG O2 Saturation ABG Base Excess POC ABG pCO2 ABG Hemoglobin 12.2 L ABG Oxyhemoglobin ABG Chloride ABG Glucose Oxyhemoglobin Sodium Potassium Chloride Carbon Dioxide BUN 23 H Creatinine Glucose 110 H POC Glucose 108 H Lactic Acid Calcium Phosphorus Magnesium AST ALT Lactate Dehydrogenase Total Bilirubin Direct Bilirubin CK-MB (CK-2) C-Reactive Protein NT-Pro-B Natriuret Pep Total Protein Albumin Arterial Blood Glucose Urine WBC (Auto) Urine Creatinine 11/26/19 11/26/19 11/26/19 06:17 10:43 10:43 WBC 11.4 H RBC Hgb Hct MCHC RDW 17.1 H MCV MCH Lymph % (Auto) [place] % (Auto) [place] # Eos # Lymph # (Auto) [place] # (Auto) Eos # (Auto) Seg Neutrophils % Seg Neuts % (Manual) Baso # (Auto) Lymphocytes % (Manual) Monocytes % (Manual) Eosinophils % (Manual) Basophils % (Manual) Seg Neutrophils # Seg Neutrophils # Man Lymphocytes # (Manual) Monocytes # (Manual) Eosinophils # (Manual) Nucleated RBC % Basophils # (Manual) PT INR APTT Heparin Anti-Xa Level ABG pH POC ABG pO2 ABG pO2 ABG HCO3 ABG O2 Saturation ABG Base Excess POC ABG pCO2 ABG Hemoglobin ABG Oxyhemoglobin ABG Chloride ABG Glucose Oxyhemoglobin Sodium Potassium Chloride Carbon Dioxide BUN 29 H Creatinine Glucose POC Glucose 107 H Lactic Acid Calcium Phosphorus Magnesium AST ALT Lactate Dehydrogenase Total Bilirubin Direct Bilirubin CK-MB (CK-2) C-Reactive Protein NT-Pro-B Natriuret Pep Total Protein Albumin Arterial Blood Glucose Urine WBC (Auto) Urine Creatinine 11/26/19 11/27/19 11/27/19 17:11 01:53 04:11 WBC RBC Hgb Hct MCHC RDW MCV MCH Lymph % (Auto) [place] % (Auto) [place] # Eos # Lymph # (Auto) [place] # (Auto) Eos # (Auto) Seg Neutrophils % Seg Neuts % (Manual) Baso # (Auto) Lymphocytes % (Manual) Monocytes % (Manual) Eosinophils % (Manual) Basophils % (Manual) Seg Neutrophils # Seg Neutrophils # Man Lymphocytes # (Manual) Monocytes # (Manual) Eosinophils # (Manual) Nucleated RBC % Basophils # (Manual) PT INR APTT Heparin Anti-Xa Level ABG pH POC ABG pO2 ABG pO2 ABG HCO3 29.2 H ABG O2 Saturation ABG Base Excess 3.4 H POC ABG pCO2 ABG Hemoglobin 13.3 L ABG Oxyhemoglobin ABG Chloride ABG Glucose Oxyhemoglobin 94.5 L Sodium Potassium Chloride Carbon Dioxide BUN Creatinine Glucose POC Glucose 113 H 108 H Lactic Acid Calcium Phosphorus Magnesium AST ALT Lactate Dehydrogenase Total Bilirubin Direct Bilirubin CK-MB (CK-2) C-Reactive Protein NT-Pro-B Natriuret Pep Total Protein Albumin Arterial Blood Glucose Urine WBC (Auto) Urine Creatinine 11/27/19 11/28/19 11/28/19 05:27 05:00 05:25 WBC RBC Hgb Hct MCHC RDW MCV MCH Lymph % (Auto) [place] % (Auto) [place] # Eos # Lymph # (Auto) [place] # (Auto) Eos # (Auto) Seg Neutrophils % Seg Neuts % (Manual) Baso # (Auto) Lymphocytes % (Manual) Monocytes % (Manual) Eosinophils % (Manual) Basophils % (Manual) Seg Neutrophils # Seg Neutrophils # Man Lymphocytes # (Manual) Monocytes # (Manual) Eosinophils # (Manual) Nucleated RBC % Basophils # (Manual) PT INR APTT Heparin Anti-Xa Level ABG pH POC ABG pO2 68.1 L ABG pO2 ABG HCO3 ABG O2 Saturation ABG Base Excess POC ABG pCO2 ABG Hemoglobin ABG Oxyhemoglobin 91.2 L ABG Chloride ABG Glucose Oxyhemoglobin Sodium Potassium Chloride Carbon Dioxide BUN Creatinine Glucose POC Glucose 111 H 110 H Lactic Acid Calcium Phosphorus Magnesium AST ALT Lactate Dehydrogenase Total Bilirubin Direct Bilirubin CK-MB (CK-2) C-Reactive Protein NT-Pro-B Natriuret Pep Total Protein Albumin Arterial Blood Glucose Urine WBC (Auto) Urine Creatinine 11/28/19 11/28/19 11/28/19 12:08 13:47 13:47 WBC 11.3 H RBC Hgb Hct MCHC RDW 16.1 H MCV MCH Lymph % (Auto) [place] % (Auto) 9.9 H [place] # 1.1 H Eos # Lymph # (Auto) [place] # (Auto) Eos # (Auto) Seg Neutrophils % 71.4 H Seg Neuts % (Manual) Baso # (Auto) Lymphocytes % (Manual) Monocytes % (Manual) Eosinophils % (Manual) Basophils % (Manual) Seg Neutrophils # 8.1 H Seg Neutrophils # Man Lymphocytes # (Manual) Monocytes # (Manual) Eosinophils # (Manual) Nucleated RBC % Basophils # (Manual) PT INR APTT Heparin Anti-Xa Level ABG pH POC ABG pO2 ABG pO2 ABG HCO3 ABG O2 Saturation ABG Base Excess POC ABG pCO2 ABG Hemoglobin ABG Oxyhemoglobin ABG Chloride ABG Glucose Oxyhemoglobin Sodium Potassium Chloride Carbon Dioxide BUN 23 H Creatinine Glucose 123 H POC Glucose 112 H Lactic Acid Calcium Phosphorus Magnesium AST ALT Lactate Dehydrogenase Total Bilirubin Direct Bilirubin CK-MB (CK-2) C-Reactive Protein NT-Pro-B Natriuret Pep Total Protein Albumin 3.7 L Arterial Blood Glucose Urine WBC (Auto) Urine Creatinine 11/28/19 11/29/19 11/29/19 17:26 03:55 17:04 WBC RBC Hgb Hct MCHC RDW MCV MCH Lymph % (Auto) [place] % (Auto) [place] # Eos # Lymph # (Auto) [place] # (Auto) Eos # (Auto) Seg Neutrophils % Seg Neuts % (Manual) Baso # (Auto) Lymphocytes % (Manual) Monocytes % (Manual) Eosinophils % (Manual) Basophils % (Manual) Seg Neutrophils # Seg Neutrophils # Man Lymphocytes # (Manual) Monocytes # (Manual) Eosinophils # (Manual) Nucleated RBC % Basophils # (Manual) PT INR APTT Heparin Anti-Xa Level ABG pH POC ABG pO2 ABG pO2 65.7 L ABG HCO3 28.3 H ABG O2 Saturation 93.9 L ABG Base Excess 3.6 H POC ABG pCO2 ABG Hemoglobin 13.3 L ABG Oxyhemoglobin ABG Chloride ABG Glucose Oxyhemoglobin 91.5 L Sodium Potassium Chloride Carbon Dioxide BUN Creatinine Glucose POC Glucose 123 H 119 H Lactic Acid Calcium Phosphorus Magnesium AST ALT Lactate Dehydrogenase Total Bilirubin Direct Bilirubin CK-MB (CK-2) C-Reactive Protein NT-Pro-B Natriuret Pep Total Protein Albumin Arterial Blood Glucose Urine WBC (Auto) Urine Creatinine 11/30/19 11/30/1911/29/20 04:17 04:17 04:56 WBC 13.4 H RBC Hgb Hct MCHC RDW 15.6 H MCV MCH Lymph % (Auto) [place] % (Auto) [place] # Eos # Lymph # (Auto) [place] # (Auto) Eos # (Auto) Seg Neutrophils % Seg Neuts % (Manual) Baso # (Auto) Lymphocytes % (Manual) Monocytes % (Manual) Eosinophils % (Manual) Basophils % (Manual) Seg Neutrophils # Seg Neutrophils # Man Lymphocytes # (Manual) Monocytes # (Manual) Eosinophils # (Manual) Nucleated RBC % Basophils # (Manual) PT INR APTT Heparin Anti-Xa Level ABG pH POC ABG pO2 ABG pO2 56.3 L ABG HCO3 29.3 H ABG O2 Saturation 91.5 L ABG Base Excess 4.7 H POC ABG pCO2 ABG Hemoglobin 12.1 L ABG Oxyhemoglobin ABG Chloride ABG Glucose Oxyhemoglobin 89.2 L Sodium 147 H Potassium Chloride Carbon Dioxide BUN 30 H Creatinine Glucose 124 H POC Glucose Lactic Acid Calcium Phosphorus Magnesium AST ALT Lactate Dehydrogenase Total Bilirubin Direct Bilirubin CK-MB (CK-2) C-Reactive Protein NT-Pro-B Natriuret Pep Total Protein Albumin 3.8 L Arterial Blood Glucose Urine WBC (Auto) Urine Creatinine 11/30/19 11/30/19 11/30/19 05:51 11:54 18:17 WBC RBC Hgb Hct MCHC RDW MCV MCH Lymph % (Auto) [place] % (Auto) [place] # Eos # Lymph # (Auto) [place] # (Auto) Eos # (Auto) Seg Neutrophils % Seg Neuts % (Manual) Baso # (Auto) Lymphocytes % (Manual) Monocytes % (Manual) Eosinophils % (Manual) Basophils % (Manual) Seg Neutrophils # Seg Neutrophils # Man Lymphocytes # (Manual) Monocytes # (Manual) Eosinophils # (Manual) Nucleated RBC % Basophils # (Manual) PT INR APTT Heparin Anti-Xa Level ABG pH POC ABG pO2 ABG pO2 ABG HCO3 ABG O2 Saturation ABG Base Excess POC ABG pCO2 ABG Hemoglobin ABG Oxyhemoglobin ABG Chloride ABG Glucose Oxyhemoglobin Sodium Potassium Chloride Carbon Dioxide BUN Creatinine Glucose POC Glucose 127 H 115 H 143 H Lactic Acid Calcium Phosphorus Magnesium AST ALT Lactate Dehydrogenase Total Bilirubin Direct Bilirubin CK-MB (CK-2) C-Reactive Protein NT-Pro-B Natriuret Pep Total Protein Albumin Arterial Blood Glucose Urine WBC (Auto) Urine Creatinine 12/01/19 12/01/19 12/01/19 01:18 05:22 12:16 WBC RBC Hgb Hct MCHC RDW MCV MCH Lymph % (Auto) [place] % (Auto) [place] # Eos # Lymph # (Auto) [place] # (Auto) Eos # (Auto) Seg Neutrophils % Seg Neuts % (Manual) Baso # (Auto) Lymphocytes % (Manual) Monocytes % (Manual) Eosinophils % (Manual) Basophils % (Manual) Seg Neutrophils # Seg Neutrophils # Man Lymphocytes # (Manual) Monocytes # (Manual) Eosinophils # (Manual) Nucleated RBC % Basophils # (Manual) PT INR APTT Heparin Anti-Xa Level ABG pH POC ABG pO2 ABG pO2 ABG HCO3 ABG O2 Saturation ABG Base Excess POC ABG pCO2 ABG Hemoglobin ABG Oxyhemoglobin ABG Chloride ABG Glucose Oxyhemoglobin Sodium Potassium 3.5 L Chloride 107.8 H Carbon Dioxide BUN 37 H Creatinine Glucose 157 H POC Glucose 118 H 148 H Lactic Acid Calcium 8.2 L D Phosphorus Magnesium AST 48 H ALT 60 H Lactate Dehydrogenase 194 H Total Bilirubin Direct Bilirubin CK-MB (CK-2) C-Reactive Protein 8.50 H NT-Pro-B Natriuret Pep Total Protein 5.5 L Albumin 2.8 L Arterial Blood Glucose Urine WBC (Auto) Urine Creatinine 12/01/19 12/02/19 12/02/19 18:04 00:05 05:16 WBC 11.4 H RBC Hgb Hct MCHC RDW 15.9 H MCV MCH Lymph % (Auto) [place] % (Auto) 9.9 H [place] # 1.1 H Eos # Lymph # (Auto) [place] # (Auto) Eos # (Auto) Seg Neutrophils % 70.3 H Seg Neuts % (Manual) Baso # (Auto) Lymphocytes % (Manual) Monocytes % (Manual) Eosinophils % (Manual) Basophils % (Manual) Seg Neutrophils # 8.0 H Seg Neutrophils # Man Lymphocytes # (Manual) Monocytes # (Manual) Eosinophils # (Manual) Nucleated RBC % Basophils # (Manual) PT INR APTT Heparin Anti-Xa Level ABG pH POC ABG pO2 ABG pO2 ABG HCO3 ABG O2 Saturation ABG Base Excess POC ABG pCO2 ABG Hemoglobin ABG Oxyhemoglobin ABG Chloride ABG Glucose Oxyhemoglobin Sodium Potassium Chloride Carbon Dioxide BUN Creatinine Glucose POC Glucose 143 H 107 H Lactic Acid Calcium Phosphorus Magnesium AST ALT Lactate Dehydrogenase Total Bilirubin Direct Bilirubin CK-MB (CK-2) C-Reactive Protein NT-Pro-B Natriuret Pep Total Protein Albumin Arterial Blood Glucose Urine WBC (Auto) Urine Creatinine 12/02/19 12/02/19 12/02/19 05:16 06:03 11:52 WBC RBC Hgb Hct MCHC RDW MCV MCH Lymph % (Auto) [place] % (Auto) [place] # Eos # Lymph # (Auto) [place] # (Auto) Eos # (Auto) Seg Neutrophils % Seg Neuts % (Manual) Baso # (Auto) Lymphocytes % (Manual) Monocytes % (Manual) Eosinophils % (Manual) Basophils % (Manual) Seg Neutrophils # Seg Neutrophils # Man Lymphocytes # (Manual) Monocytes # (Manual) Eosinophils # (Manual) Nucleated RBC % Basophils # (Manual) PT INR APTT Heparin Anti-Xa Level ABG pH POC ABG pO2 ABG pO2 ABG HCO3 ABG O2 Saturation ABG Base Excess POC ABG pCO2 ABG Hemoglobin ABG Oxyhemoglobin ABG Chloride ABG Glucose Oxyhemoglobin Sodium 146 H Potassium Chloride Carbon Dioxide BUN 28 H Creatinine Glucose 123 H POC Glucose 110 H 152 H Lactic Acid Calcium Phosphorus Magnesium AST ALT Lactate Dehydrogenase Total Bilirubin Direct Bilirubin CK-MB (CK-2) C-Reactive Protein NT-Pro-B Natriuret Pep Total Protein Albumin Arterial Blood Glucose Urine WBC (Auto) Urine Creatinine 12/02/19 12/02/19 12/02/19 12:58 17:58 23:36 WBC RBC Hgb Hct MCHC RDW MCV MCH Lymph % (Auto) [place] % (Auto) [place] # Eos # Lymph # (Auto) [place] # (Auto) Eos # (Auto) Seg Neutrophils % Seg Neuts % (Manual) Baso # (Auto) Lymphocytes % (Manual) Monocytes % (Manual) Eosinophils % (Manual) Basophils % (Manual) Seg Neutrophils # Seg Neutrophils # Man Lymphocytes # (Manual) Monocytes # (Manual) Eosinophils # (Manual) Nucleated RBC % Basophils # (Manual) PT INR APTT Heparin Anti-Xa Level ABG pH POC ABG pO2 78.1 L ABG pO2 ABG HCO3 ABG O2 Saturation ABG Base Excess POC ABG pCO2 ABG Hemoglobin ABG Oxyhemoglobin ABG Chloride ABG Glucose Oxyhemoglobin Sodium Potassium Chloride Carbon Dioxide BUN Creatinine Glucose POC Glucose 120 H 123 H Lactic Acid Calcium Phosphorus Magnesium AST ALT Lactate Dehydrogenase Total Bilirubin Direct Bilirubin CK-MB (CK-2) C-Reactive Protein NT-Pro-B Natriuret Pep Total Protein Albumin Arterial Blood Glucose Urine WBC (Auto) Urine Creatinine 12/03/19 12/03/19 12/03/19 06:03 06:14 11:46 WBC RBC Hgb Hct MCHC RDW MCV MCH Lymph % (Auto) [place] % (Auto) [place] # Eos # Lymph # (Auto) [place] # (Auto) Eos # (Auto) Seg Neutrophils % Seg Neuts % (Manual) Baso # (Auto) Lymphocytes % (Manual) Monocytes % (Manual) Eosinophils % (Manual) Basophils % (Manual) Seg Neutrophils # Seg Neutrophils # Man Lymphocytes # (Manual) Monocytes # (Manual) Eosinophils # (Manual) Nucleated RBC % Basophils # (Manual) PT INR APTT Heparin Anti-Xa Level ABG pH POC ABG pO2 ABG pO2 ABG HCO3 ABG O2 Saturation ABG Base Excess POC ABG pCO2 ABG Hemoglobin ABG Oxyhemoglobin ABG Chloride ABG Glucose Oxyhemoglobin Sodium Potassium Chloride Carbon Dioxide BUN Creatinine Glucose POC Glucose 142 H 130 H Lactic Acid Calcium Phosphorus Magnesium AST ALT Lactate Dehydrogenase Total Bilirubin Direct Bilirubin CK-MB (CK-2) C-Reactive Protein NT-Pro-B Natriuret Pep Total Protein Albumin Arterial Blood Glucose Urine WBC (Auto) 8.0 H Urine Creatinine 12/03/19 12/03/19 12/04/19 15:50 17:39 00:04 WBC RBC Hgb Hct MCHC RDW MCV MCH Lymph % (Auto) [place] % (Auto) [place] # Eos # Lymph # (Auto) [place] # (Auto) Eos # (Auto) Seg Neutrophils % Seg Neuts % (Manual) Baso # (Auto) Lymphocytes % (Manual) Monocytes % (Manual) Eosinophils % (Manual) Basophils % (Manual) Seg Neutrophils # Seg Neutrophils # Man Lymphocytes # (Manual) Monocytes # (Manual) Eosinophils # (Manual) Nucleated RBC % Basophils # (Manual) PT INR APTT Heparin Anti-Xa Level ABG pH POC ABG pO2 ABG pO2 ABG HCO3 ABG O2 Saturation ABG Base Excess POC ABG pCO2 ABG Hemoglobin ABG Oxyhemoglobin ABG Chloride ABG Glucose Oxyhemoglobin Sodium Potassium Chloride Carbon Dioxide BUN Creatinine Glucose POC Glucose 146 H 133 H Lactic Acid Calcium Phosphorus 2.40 L Magnesium AST ALT Lactate Dehydrogenase Total Bilirubin Direct Bilirubin CK-MB (CK-2) C-Reactive Protein NT-Pro-B Natriuret Pep Total Protein Albumin Arterial Blood Glucose Urine WBC (Auto) Urine Creatinine 12/04/19 12/04/19 12/04/19 03:58 03:58 05:22 WBC 12.5 H RBC Hgb 11.2 L Hct 35.2 L MCHC RDW 16.0 H MCV MCH Lymph % (Auto) [place] % (Auto) 9.6 H [place] # 1.2 H Eos # 0.5 H Lymph # (Auto) [place] # (Auto) Eos # (Auto) Seg Neutrophils % Seg Neuts % (Manual) Baso # (Auto) Lymphocytes % (Manual) Monocytes % (Manual) Eosinophils % (Manual) Basophils % (Manual) Seg Neutrophils # 8.6 H Seg Neutrophils # Man Lymphocytes # (Manual) Monocytes # (Manual) Eosinophils # (Manual) Nucleated RBC % Basophils # (Manual) PT INR APTT Heparin Anti-Xa Level ABG pH POC ABG pO2 ABG pO2 ABG HCO3 ABG O2 Saturation ABG Base Excess POC ABG pCO2 ABG Hemoglobin ABG Oxyhemoglobin ABG Chloride ABG Glucose Oxyhemoglobin Sodium 146 H Potassium Chloride 108.6 H Carbon Dioxide BUN 30 H Creatinine 0.7 L Glucose 121 H POC Glucose 132 H Lactic Acid Calcium Phosphorus Magnesium AST ALT Lactate Dehydrogenase Total Bilirubin Direct Bilirubin CK-MB (CK-2) C-Reactive Protein NT-Pro-B Natriuret Pep Total Protein Albumin Arterial Blood Glucose Urine WBC (Auto) Urine Creatinine 12/04/19 12/04/19 12/05/19 13:26 18:43 00:19 WBC RBC Hgb Hct MCHC RDW MCV MCH Lymph % (Auto) [place] % (Auto) [place] # Eos # Lymph # (Auto) [place] # (Auto) Eos # (Auto) Seg Neutrophils % Seg Neuts % (Manual) Baso # (Auto) Lymphocytes % (Manual) Monocytes % (Manual) Eosinophils % (Manual) Basophils % (Manual) Seg Neutrophils # Seg Neutrophils # Man Lymphocytes # (Manual) Monocytes # (Manual) Eosinophils # (Manual) Nucleated RBC % Basophils # (Manual) PT INR APTT Heparin Anti-Xa Level ABG pH POC ABG pO2 ABG pO2 ABG HCO3 ABG O2 Saturation ABG Base Excess POC ABG pCO2 ABG Hemoglobin ABG Oxyhemoglobin ABG Chloride ABG Glucose Oxyhemoglobin Sodium Potassium Chloride Carbon Dioxide BUN Creatinine Glucose POC Glucose 185 H 156 H 150 H Lactic Acid Calcium Phosphorus Magnesium AST ALT Lactate Dehydrogenase Total Bilirubin Direct Bilirubin CK-MB (CK-2) C-Reactive Protein NT-Pro-B Natriuret Pep Total Protein Albumin Arterial Blood Glucose Urine WBC (Auto) Urine Creatinine 12/05/19 12/05/19 12/05/19 03:37 03:37 05:14 WBC 16.3 H RBC Hgb 11.4 L Hct MCHC RDW 15.6 H MCV MCH Lymph % (Auto) 9.9 L [place] % (Auto) 9.7 H [place] # 1.6 H Eos # Lymph # (Auto) [place] # (Auto) Eos # (Auto) Seg Neutrophils % 78.0 H Seg Neuts % (Manual) Baso # (Auto) Lymphocytes % (Manual) Monocytes % (Manual) Eosinophils % (Manual) Basophils % (Manual) Seg Neutrophils # 12.7 H Seg Neutrophils # Man Lymphocytes # (Manual) Monocytes # (Manual) Eosinophils # (Manual) Nucleated RBC % Basophils # (Manual) PT INR APTT Heparin Anti-Xa Level ABG pH POC ABG pO2 ABG pO2 ABG HCO3 ABG O2 Saturation ABG Base Excess POC ABG pCO2 ABG Hemoglobin ABG Oxyhemoglobin ABG Chloride ABG Glucose Oxyhemoglobin Sodium 146 H Potassium Chloride 107.2 H Carbon Dioxide BUN 27 H Creatinine 0.7 L Glucose 171 H POC Glucose 168 H Lactic Acid Calcium Phosphorus Magnesium AST ALT Lactate Dehydrogenase Total Bilirubin Direct Bilirubin CK-MB (CK-2) C-Reactive Protein NT-Pro-B Natriuret Pep Total Protein Albumin Arterial Blood Glucose Urine WBC (Auto) Urine Creatinine 12/05/19 12/05/19 12/05/19 12:31 18:10 23:58 WBC RBC Hgb Hct MCHC RDW MCV MCH Lymph % (Auto) [place] % (Auto) [place] # Eos # Lymph # (Auto) [place] # (Auto) Eos # (Auto) Seg Neutrophils % Seg Neuts % (Manual) Baso # (Auto) Lymphocytes % (Manual) Monocytes % (Manual) Eosinophils % (Manual) Basophils % (Manual) Seg Neutrophils # Seg Neutrophils # Man Lymphocytes # (Manual) Monocytes # (Manual) Eosinophils # (Manual) Nucleated RBC % Basophils # (Manual) PT INR APTT Heparin Anti-Xa Level ABG pH POC ABG pO2 ABG pO2 ABG HCO3 ABG O2 Saturation ABG Base Excess POC ABG pCO2 ABG Hemoglobin ABG Oxyhemoglobin ABG Chloride ABG Glucose Oxyhemoglobin Sodium Potassium Chloride Carbon Dioxide BUN Creatinine Glucose POC Glucose 159 H 198 H 115 H Lactic Acid Calcium Phosphorus Magnesium AST ALT Lactate Dehydrogenase Total Bilirubin Direct Bilirubin CK-MB (CK-2) C-Reactive Protein NT-Pro-B Natriuret Pep Total Protein Albumin Arterial Blood Glucose Urine WBC (Auto) Urine Creatinine 12/06/19 12/06/19 12/06/19 05:24 05:24 05:25 WBC 14.9 H RBC Hgb 10.8 L Hct 34.0 L MCHC RDW 15.6 H MCV MCH Lymph % (Auto) 10.7 L [place] % (Auto) 8.3 H [place] # 1.2 H Eos # Lymph # (Auto) [place] # (Auto) Eos # (Auto) Seg Neutrophils % 78.7 H Seg Neuts % (Manual) Baso # (Auto) Lymphocytes % (Manual) Monocytes % (Manual) Eosinophils % (Manual) Basophils % (Manual) Seg Neutrophils # 11.7 H Seg Neutrophils # Man Lymphocytes # (Manual) Monocytes # (Manual) Eosinophils # (Manual) Nucleated RBC % Basophils # (Manual) PT INR APTT Heparin Anti-Xa Level ABG pH POC ABG pO2 ABG pO2 ABG HCO3 ABG O2 Saturation ABG Base Excess POC ABG pCO2 ABG Hemoglobin ABG Oxyhemoglobin ABG Chloride ABG Glucose Oxyhemoglobin Sodium 148 H Potassium 5.1 H Chloride 107.6 H Carbon Dioxide BUN 27 H Creatinine 0.7 L Glucose 155 H POC Glucose 157 H Lactic Acid Calcium Phosphorus Magnesium AST ALT Lactate Dehydrogenase Total Bilirubin Direct Bilirubin CK-MB (CK-2) C-Reactive Protein NT-Pro-B Natriuret Pep Total Protein Albumin Arterial Blood Glucose Urine WBC (Auto) Urine Creatinine 12/07/19 12/07/19 12/07/19 00:13 05:34 11:33 WBC RBC Hgb Hct MCHC RDW MCV MCH Lymph % (Auto) [place] % (Auto) [place] # Eos # Lymph # (Auto) [place] # (Auto) Eos # (Auto) Seg Neutrophils % Seg Neuts % (Manual) Baso # (Auto) Lymphocytes % (Manual) Monocytes % (Manual) Eosinophils % (Manual) Basophils % (Manual) Seg Neutrophils # Seg Neutrophils # Man Lymphocytes # (Manual) Monocytes # (Manual) Eosinophils # (Manual) Nucleated RBC % Basophils # (Manual) PT INR APTT Heparin Anti-Xa Level ABG pH POC ABG pO2 ABG pO2 ABG HCO3 ABG O2 Saturation ABG Base Excess POC ABG pCO2 ABG Hemoglobin ABG Oxyhemoglobin ABG Chloride ABG Glucose Oxyhemoglobin Sodium Potassium Chloride Carbon Dioxide BUN Creatinine Glucose POC Glucose 142 H 111 H 169 H Lactic Acid Calcium Phosphorus Magnesium AST ALT Lactate Dehydrogenase Total Bilirubin Direct Bilirubin CK-MB (CK-2) C-Reactive Protein NT-Pro-B Natriuret Pep Total Protein Albumin Arterial Blood Glucose Urine WBC (Auto) Urine Creatinine 12/07/19 12/07/19 12/07/19 12:41 13:25 18:19 WBC 12.4 H RBC 3.53 L Hgb 10.2 L Hct 32.1 L MCHC RDW 15.3 H MCV MCH Lymph % (Auto) 10.6 L [place] % (Auto) 7.8 H [place] # 1.0 H Eos # Lymph # (Auto) [place] # (Auto) Eos # (Auto) Seg Neutrophils % 77.6 H Seg Neuts % (Manual) Baso # (Auto) Lymphocytes % (Manual) Monocytes % (Manual) Eosinophils % (Manual) Basophils % (Manual) Seg Neutrophils # 9.6 H Seg Neutrophils # Man Lymphocytes # (Manual) Monocytes # (Manual) Eosinophils # (Manual) Nucleated RBC % Basophils # (Manual) PT INR APTT Heparin Anti-Xa Level ABG pH POC ABG pO2 ABG pO2 ABG HCO3 ABG O2 Saturation ABG Base Excess POC ABG pCO2 ABG Hemoglobin ABG Oxyhemoglobin ABG Chloride ABG Glucose Oxyhemoglobin Sodium 149 H Potassium Chloride 108.4 H Carbon Dioxide BUN 26 H Creatinine 0.6 L Glucose 149 H POC Glucose 164 H Lactic Acid Calcium Phosphorus Magnesium 2.60 H AST 121 H ALT 145 H Lactate Dehydrogenase Total Bilirubin Direct Bilirubin CK-MB (CK-2) C-Reactive Protein NT-Pro-B Natriuret Pep Total Protein Albumin 2.6 L Arterial Blood Glucose Urine WBC (Auto) Urine Creatinine 12/07/19 12/08/19 12/08/19 22:25 00:02 03:55 WBC 13.3 H RBC 3.40 L Hgb 9.7 L Hct 30.8 L MCHC 31 L RDW 15.5 H MCV MCH Lymph % (Auto) [place] % (Auto) 8.1 H [place] # 1.1 H Eos # Lymph # (Auto) [place] # (Auto) Eos # (Auto) Seg Neutrophils % 73.0 H Seg Neuts % (Manual) Baso # (Auto) Lymphocytes % (Manual) Monocytes % (Manual) Eosinophils % (Manual) Basophils % (Manual) Seg Neutrophils # 9.7 H Seg Neutrophils # Man Lymphocytes # (Manual) Monocytes # (Manual) Eosinophils # (Manual) Nucleated RBC % Basophils # (Manual) PT INR APTT Heparin Anti-Xa Level 0.12 L ABG pH POC ABG pO2 ABG pO2 ABG HCO3 ABG O2 Saturation ABG Base Excess POC ABG pCO2 ABG Hemoglobin ABG Oxyhemoglobin ABG Chloride ABG Glucose Oxyhemoglobin Sodium Potassium Chloride Carbon Dioxide BUN Creatinine Glucose POC Glucose 151 H Lactic Acid Calcium Phosphorus Magnesium AST ALT Lactate Dehydrogenase Total Bilirubin Direct Bilirubin CK-MB (CK-2) C-Reactive Protein NT-Pro-B Natriuret Pep Total Protein Albumin Arterial Blood Glucose Urine WBC (Auto) Urine Creatinine 12/08/19 12/08/19 12/08/19 03:55 05:21 06:01 WBC RBC Hgb Hct MCHC RDW MCV MCH Lymph % (Auto) [place] % (Auto) [place] # Eos # Lymph # (Auto) [place] # (Auto) Eos # (Auto) Seg Neutrophils % Seg Neuts % (Manual) Baso # (Auto) Lymphocytes % (Manual) Monocytes % (Manual) Eosinophils % (Manual) Basophils % (Manual) Seg Neutrophils # Seg Neutrophils # Man Lymphocytes # (Manual) Monocytes # (Manual) Eosinophils # (Manual) Nucleated RBC % Basophils # (Manual) PT INR APTT Heparin Anti-Xa Level 0.20 L ABG pH POC ABG pO2 ABG pO2 ABG HCO3 ABG O2 Saturation ABG Base Excess POC ABG pCO2 ABG Hemoglobin ABG Oxyhemoglobin ABG Chloride ABG Glucose Oxyhemoglobin Sodium 149 H Potassium Chloride 108.0 H Carbon Dioxide BUN 28 H Creatinine 0.6 L Glucose 144 H POC Glucose 143 H Lactic Acid Calcium Phosphorus Magnesium AST 98 H ALT 145 H Lactate Dehydrogenase Total Bilirubin Direct Bilirubin CK-MB (CK-2) C-Reactive Protein NT-Pro-B Natriuret Pep Total Protein 6.0 L Albumin 2.4 L Arterial Blood Glucose Urine WBC (Auto) Urine Creatinine 12/08/19 12/08/19 12/08/19 12:08 18:11 23:53 WBC RBC Hgb Hct MCHC RDW MCV MCH Lymph % (Auto) [place] % (Auto) [place] # Eos # Lymph # (Auto) [place] # (Auto) Eos # (Auto) Seg Neutrophils % Seg Neuts % (Manual) Baso # (Auto) Lymphocytes % (Manual) Monocytes % (Manual) Eosinophils % (Manual) Basophils % (Manual) Seg Neutrophils # Seg Neutrophils # Man Lymphocytes # (Manual) Monocytes # (Manual) Eosinophils # (Manual) Nucleated RBC % Basophils # (Manual) PT INR APTT Heparin Anti-Xa Level ABG pH POC ABG pO2 ABG pO2 ABG HCO3 ABG O2 Saturation ABG Base Excess POC ABG pCO2 ABG Hemoglobin ABG Oxyhemoglobin ABG Chloride ABG Glucose Oxyhemoglobin Sodium Potassium Chloride Carbon Dioxide BUN Creatinine Glucose POC Glucose 172 H 122 H 162 H Lactic Acid Calcium Phosphorus Magnesium AST ALT Lactate Dehydrogenase Total Bilirubin Direct Bilirubin CK-MB (CK-2) C-Reactive Protein NT-Pro-B Natriuret Pep Total Protein Albumin Arterial Blood Glucose Urine WBC (Auto) Urine Creatinine 12/09/19 12/09/19 12/09/19 04:03 04:03 05:53 WBC RBC Hgb 9.1 L Hct 28.9 L MCHC RDW MCV MCH Lymph % (Auto) [place] % (Auto) [place] # Eos # Lymph # (Auto) [place] # (Auto) Eos # (Auto) Seg Neutrophils % Seg Neuts % (Manual) Baso # (Auto) Lymphocytes % (Manual) Monocytes % (Manual) Eosinophils % (Manual) Basophils % (Manual) Seg Neutrophils # Seg Neutrophils # Man Lymphocytes # (Manual) Monocytes # (Manual) Eosinophils # (Manual) Nucleated RBC % Basophils # (Manual) PT INR APTT Heparin Anti-Xa Level 0.15 L ABG pH POC ABG pO2 ABG pO2 ABG HCO3 ABG O2 Saturation ABG Base Excess POC ABG pCO2 ABG Hemoglobin ABG Oxyhemoglobin ABG Chloride ABG Glucose Oxyhemoglobin Sodium Potassium Chloride Carbon Dioxide BUN Creatinine Glucose POC Glucose 124 H Lactic Acid Calcium Phosphorus Magnesium AST ALT Lactate Dehydrogenase Total Bilirubin Direct Bilirubin CK-MB (CK-2) C-Reactive Protein NT-Pro-B Natriuret Pep Total Protein Albumin Arterial Blood Glucose Urine WBC (Auto) Urine Creatinine 12/09/19 12/09/19 12/10/19 09:43 12:41 00:13 WBC RBC Hgb Hct MCHC RDW MCV MCH Lymph % (Auto) [place] % (Auto) [place] # Eos # Lymph # (Auto) [place] # (Auto) Eos # (Auto) Seg Neutrophils % Seg Neuts % (Manual) Baso # (Auto) Lymphocytes % (Manual) Monocytes % (Manual) Eosinophils % (Manual) Basophils % (Manual) Seg Neutrophils # Seg Neutrophils # Man Lymphocytes # (Manual) Monocytes # (Manual) Eosinophils # (Manual) Nucleated RBC % Basophils # (Manual) PT INR APTT Heparin Anti-Xa Level ABG pH POC ABG pO2 ABG pO2 ABG HCO3 ABG O2 Saturation ABG Base Excess POC ABG pCO2 ABG Hemoglobin ABG Oxyhemoglobin ABG Chloride ABG Glucose Oxyhemoglobin Sodium Potassium Chloride Carbon Dioxide BUN 25 H Creatinine 0.6 L Glucose 131 H POC Glucose 109 H 120 H Lactic Acid Calcium Phosphorus Magnesium AST ALT Lactate Dehydrogenase Total Bilirubin Direct Bilirubin CK-MB (CK-2) C-Reactive Protein NT-Pro-B Natriuret Pep Total Protein Albumin Arterial Blood Glucose Urine WBC (Auto) Urine Creatinine 12/10/19 12/10/19 12/10/19 04:14 04:14 12:00 WBC 13.3 H RBC 3.34 L Hgb 9.6 L Hct 30.4 L MCHC RDW 15.4 H MCV MCH Lymph % (Auto) [place] % (Auto) [place] # Eos # Lymph # (Auto) [place] # (Auto) Eos # (Auto) Seg Neutrophils % Seg Neuts % (Manual) 75.0 H Baso # (Auto) Lymphocytes % (Manual) 13.0 L Monocytes % (Manual) 8.0 H Eosinophils % (Manual) Basophils % (Manual) 2.0 H Seg Neutrophils # Seg Neutrophils # Man 10.0 H Lymphocytes # (Manual) Monocytes # (Manual) 1.1 H Eosinophils # (Manual) Nucleated RBC % Basophils # (Manual) 0.3 H PT INR APTT Heparin Anti-Xa Level ABG pH POC ABG pO2 ABG pO2 ABG HCO3 ABG O2 Saturation ABG Base Excess POC ABG pCO2 ABG Hemoglobin ABG Oxyhemoglobin ABG Chloride ABG Glucose Oxyhemoglobin Sodium 147 H Potassium Chloride 108.3 H Carbon Dioxide BUN 21 H Creatinine 0.6 L Glucose 104 H POC Glucose 133 H Lactic Acid Calcium Phosphorus Magnesium AST ALT Lactate Dehydrogenase Total Bilirubin Direct Bilirubin CK-MB (CK-2) C-Reactive Protein NT-Pro-B Natriuret Pep Total Protein Albumin Arterial Blood Glucose Urine WBC (Auto) Urine Creatinine 12/10/19 12/10/19 12/11/19 18:44 21:20 00:08 WBC 14.9 H RBC 3.36 L Hgb 9.6 L Hct 30.5 L MCHC RDW 15.4 H MCV MCH Lymph % (Auto) [place] % (Auto) [place] # Eos # Lymph # (Auto) [place] # (Auto) Eos # (Auto) Seg Neutrophils % Seg Neuts % (Manual) Baso # (Auto) Lymphocytes % (Manual) Monocytes % (Manual) Eosinophils % (Manual) Basophils % (Manual) Seg Neutrophils # Seg Neutrophils # Man Lymphocytes # (Manual) Monocytes # (Manual) Eosinophils # (Manual) Nucleated RBC % Basophils # (Manual) PT INR APTT Heparin Anti-Xa Level ABG pH POC ABG pO2 ABG pO2 ABG HCO3 ABG O2 Saturation ABG Base Excess POC ABG pCO2 ABG Hemoglobin ABG Oxyhemoglobin ABG Chloride ABG Glucose Oxyhemoglobin Sodium Potassium Chloride Carbon Dioxide BUN Creatinine Glucose POC Glucose 119 H 134 H Lactic Acid Calcium Phosphorus Magnesium AST ALT Lactate Dehydrogenase Total Bilirubin Direct Bilirubin CK-MB (CK-2) C-Reactive Protein NT-Pro-B Natriuret Pep Total Protein Albumin Arterial Blood Glucose Urine WBC (Auto) Urine Creatinine 12/11/19 12/11/19 12/11/19 03:54 07:28 08:36 WBC 11.9 H RBC 3.25 L Hgb 9.6 L Hct 29.2 L MCHC RDW 15.7 H MCV MCH Lymph % (Auto) [place] % (Auto) [place] # Eos # Lymph # (Auto) [place] # (Auto) Eos # (Auto) Seg Neutrophils % Seg Neuts % (Manual) Baso # (Auto) Lymphocytes % (Manual) Monocytes % (Manual) Eosinophils % (Manual) Basophils % (Manual) Seg Neutrophils # Seg Neutrophils # Man Lymphocytes # (Manual) Monocytes # (Manual) Eosinophils # (Manual) Nucleated RBC % Basophils # (Manual) PT INR APTT Heparin Anti-Xa Level 0.10 L 0.16 L ABG pH POC ABG pO2 ABG pO2 ABG HCO3 ABG O2 Saturation ABG Base Excess POC ABG pCO2 ABG Hemoglobin ABG Oxyhemoglobin ABG Chloride ABG Glucose Oxyhemoglobin Sodium Potassium Chloride Carbon Dioxide BUN Creatinine Glucose POC Glucose Lactic Acid Calcium Phosphorus Magnesium AST ALT Lactate Dehydrogenase Total Bilirubin Direct Bilirubin CK-MB (CK-2) C-Reactive Protein NT-Pro-B Natriuret Pep Total Protein Albumin Arterial Blood Glucose Urine WBC (Auto) Urine Creatinine 12/11/19 12/11/19 12/11/19 08:36 11:45 17:15 WBC RBC Hgb Hct MCHC RDW MCV MCH Lymph % (Auto) [place] % (Auto) [place] # Eos # Lymph # (Auto) [place] # (Auto) Eos # (Auto) Seg Neutrophils % Seg Neuts % (Manual) Baso # (Auto) Lymphocytes % (Manual) Monocytes % (Manual) Eosinophils % (Manual) Basophils % (Manual) Seg Neutrophils # Seg Neutrophils # Man Lymphocytes # (Manual) Monocytes # (Manual) Eosinophils # (Manual) Nucleated RBC % Basophils # (Manual) PT INR APTT Heparin Anti-Xa Level ABG pH POC ABG pO2 ABG pO2 ABG HCO3 ABG O2 Saturation ABG Base Excess POC ABG pCO2 ABG Hemoglobin ABG Oxyhemoglobin ABG Chloride ABG Glucose Oxyhemoglobin Sodium Potassium Chloride Carbon Dioxide BUN Creatinine 0.5 L Glucose 128 H POC Glucose 136 H 109 H Lactic Acid Calcium Phosphorus Magnesium AST ALT Lactate Dehydrogenase Total Bilirubin Direct Bilirubin CK-MB (CK-2) C-Reactive Protein NT-Pro-B Natriuret Pep Total Protein Albumin Arterial Blood Glucose Urine WBC (Auto) Urine Creatinine 12/12/19 12/12/19 12/12/19 00:03 05:53 05:53 WBC RBC Hgb 8.8 L Hct 27.6 L MCHC RDW MCV MCH Lymph % (Auto) [place] % (Auto) [place] # Eos # Lymph # (Auto) [place] # (Auto) Eos # (Auto) Seg Neutrophils % Seg Neuts % (Manual) Baso # (Auto) Lymphocytes % (Manual) Monocytes % (Manual) Eosinophils % (Manual) Basophils % (Manual) Seg Neutrophils # Seg Neutrophils # Man Lymphocytes # (Manual) Monocytes # (Manual) Eosinophils # (Manual) Nucleated RBC % Basophils # (Manual) PT INR APTT Heparin Anti-Xa Level 0.22 L ABG pH POC ABG pO2 ABG pO2 ABG HCO3 ABG O2 Saturation ABG Base Excess POC ABG pCO2 ABG Hemoglobin ABG Oxyhemoglobin ABG Chloride ABG Glucose Oxyhemoglobin Sodium Potassium Chloride Carbon Dioxide BUN Creatinine Glucose POC Glucose 116 H Lactic Acid Calcium Phosphorus Magnesium AST ALT Lactate Dehydrogenase Total Bilirubin Direct Bilirubin CK-MB (CK-2) C-Reactive Protein NT-Pro-B Natriuret Pep Total Protein Albumin Arterial Blood Glucose Urine WBC (Auto) Urine Creatinine 12/12/19 12/12/19 12/12/19 09:38 12:18 17:44 WBC RBC Hgb Hct MCHC RDW MCV MCH Lymph % (Auto) [place] % (Auto) [place] # Eos # Lymph # (Auto) [place] # (Auto) Eos # (Auto) Seg Neutrophils % Seg Neuts % (Manual) Baso # (Auto) Lymphocytes % (Manual) Monocytes % (Manual) Eosinophils % (Manual) Basophils % (Manual) Seg Neutrophils # Seg Neutrophils # Man Lymphocytes # (Manual) Monocytes # (Manual) Eosinophils # (Manual) Nucleated RBC % Basophils # (Manual) PT INR APTT Heparin Anti-Xa Level ABG pH POC ABG pO2 ABG pO2 ABG HCO3 ABG O2 Saturation ABG Base Excess POC ABG pCO2 ABG Hemoglobin ABG Oxyhemoglobin ABG Chloride ABG Glucose Oxyhemoglobin Sodium Potassium Chloride Carbon Dioxide BUN Creatinine Glucose POC Glucose 115 H 146 H 146 H Lactic Acid Calcium Phosphorus Magnesium AST ALT Lactate Dehydrogenase Total Bilirubin Direct Bilirubin CK-MB (CK-2) C-Reactive Protein NT-Pro-B Natriuret Pep Total Protein Albumin Arterial Blood Glucose Urine WBC (Auto) Urine Creatinine 12/12/19 12/13/19 12/13/19 23:33 05:32 05:32 WBC 13.1 H RBC 3.27 L Hgb 9.5 L Hct 29.3 L MCHC RDW 15.6 H MCV MCH Lymph % (Auto) [place] % (Auto) [place] # Eos # Lymph # (Auto) [place] # (Auto) Eos # (Auto) Seg Neutrophils % Seg Neuts % (Manual) 74.0 H Baso # (Auto) Lymphocytes % (Manual) 8.0 L Monocytes % (Manual) 9.0 H Eosinophils % (Manual) 5.0 H Basophils % (Manual) Seg Neutrophils # Seg Neutrophils # Man 9.7 H Lymphocytes # (Manual) 1.0 L Monocytes # (Manual) 1.2 H Eosinophils # (Manual) 0.7 H Nucleated RBC % Basophils # (Manual) PT INR APTT Heparin Anti-Xa Level 0.20 L ABG pH POC ABG pO2 ABG pO2 ABG HCO3 ABG O2 Saturation ABG Base Excess POC ABG pCO2 ABG Hemoglobin ABG Oxyhemoglobin ABG Chloride ABG Glucose Oxyhemoglobin Sodium Potassium Chloride Carbon Dioxide BUN Creatinine Glucose POC Glucose 126 H Lactic Acid Calcium Phosphorus Magnesium AST ALT Lactate Dehydrogenase Total Bilirubin Direct Bilirubin CK-MB (CK-2) C-Reactive Protein NT-Pro-B Natriuret Pep Total Protein Albumin Arterial Blood Glucose Urine WBC (Auto) Urine Creatinine 12/13/19 12/13/19 12/13/19 05:32 05:46 11:57 WBC RBC Hgb Hct MCHC RDW MCV MCH Lymph % (Auto) [place] % (Auto) [place] # Eos # Lymph # (Auto) [place] # (Auto) Eos # (Auto) Seg Neutrophils % Seg Neuts % (Manual) Baso # (Auto) Lymphocytes % (Manual) Monocytes % (Manual) Eosinophils % (Manual) Basophils % (Manual) Seg Neutrophils # Seg Neutrophils # Man Lymphocytes # (Manual) Monocytes # (Manual) Eosinophils # (Manual) Nucleated RBC % Basophils # (Manual) PT INR APTT Heparin Anti-Xa Level ABG pH POC ABG pO2 ABG pO2 ABG HCO3 ABG O2 Saturation ABG Base Excess POC ABG pCO2 ABG Hemoglobin ABG Oxyhemoglobin ABG Chloride ABG Glucose Oxyhemoglobin Sodium Potassium Chloride Carbon Dioxide 31 H BUN Creatinine 0.6 L Glucose 114 H POC Glucose 118 H 133 H Lactic Acid Calcium Phosphorus Magnesium AST ALT Lactate Dehydrogenase Total Bilirubin Direct Bilirubin CK-MB (CK-2) C-Reactive Protein NT-Pro-B Natriuret Pep Total Protein Albumin Arterial Blood Glucose Urine WBC (Auto) Urine Creatinine 12/13/19 12/13/19 12/14/19 17:44 23:46 05:32 WBC RBC Hgb Hct MCHC RDW MCV MCH Lymph % (Auto) [place] % (Auto) [place] # Eos # Lymph # (Auto) [place] # (Auto) Eos # (Auto) Seg Neutrophils % Seg Neuts % (Manual) Baso # (Auto) Lymphocytes % (Manual) Monocytes % (Manual) Eosinophils % (Manual) Basophils % (Manual) Seg Neutrophils # Seg Neutrophils # Man Lymphocytes # (Manual) Monocytes # (Manual) Eosinophils # (Manual) Nucleated RBC % Basophils # (Manual) PT INR APTT Heparin Anti-Xa Level ABG pH POC ABG pO2 ABG pO2 ABG HCO3 ABG O2 Saturation ABG Base Excess POC ABG pCO2 ABG Hemoglobin ABG Oxyhemoglobin ABG Chloride ABG Glucose Oxyhemoglobin Sodium Potassium Chloride Carbon Dioxide BUN Creatinine Glucose POC Glucose 161 H 126 H 139 H Lactic Acid Calcium Phosphorus Magnesium AST ALT Lactate Dehydrogenase Total Bilirubin Direct Bilirubin CK-MB (CK-2) C-Reactive Protein NT-Pro-B Natriuret Pep Total Protein Albumin Arterial Blood Glucose Urine WBC (Auto) Urine Creatinine 12/14/19 12/14/19 12/14/19 06:03 06:03 09:37 WBC RBC Hgb 9.6 L Hct 30.4 L MCHC RDW MCV MCH Lymph % (Auto) [place] % (Auto) [place] # Eos # Lymph # (Auto) [place] # (Auto) Eos # (Auto) Seg Neutrophils % Seg Neuts % (Manual) Baso # (Auto) Lymphocytes % (Manual) Monocytes % (Manual) Eosinophils % (Manual) Basophils % (Manual) Seg Neutrophils # Seg Neutrophils # Man Lymphocytes # (Manual) Monocytes # (Manual) Eosinophils # (Manual) Nucleated RBC % Basophils # (Manual) PT INR APTT Heparin Anti-Xa Level 0.24 L ABG pH POC ABG pO2 ABG pO2 ABG HCO3 ABG O2 Saturation ABG Base Excess POC ABG pCO2 ABG Hemoglobin ABG Oxyhemoglobin ABG Chloride ABG Glucose Oxyhemoglobin Sodium Potassium Chloride Carbon Dioxide BUN Creatinine 0.6 L Glucose 162 H POC Glucose Lactic Acid Calcium Phosphorus Magnesium AST 71 H ALT 118 H Lactate Dehydrogenase Total Bilirubin Direct Bilirubin CK-MB (CK-2) C-Reactive Protein NT-Pro-B Natriuret Pep Total Protein 6.2 L Albumin 2.3 L Arterial Blood Glucose Urine WBC (Auto) Urine Creatinine 12/14/19 12/14/19 12/15/19 12:06 18:18 00:19 WBC RBC Hgb Hct MCHC RDW MCV MCH Lymph % (Auto) [place] % (Auto) [place] # Eos # Lymph # (Auto) [place] # (Auto) Eos # (Auto) Seg Neutrophils % Seg Neuts % (Manual) Baso # (Auto) Lymphocytes % (Manual) Monocytes % (Manual) Eosinophils % (Manual) Basophils % (Manual) Seg Neutrophils # Seg Neutrophils # Man Lymphocytes # (Manual) Monocytes # (Manual) Eosinophils # (Manual) Nucleated RBC % Basophils # (Manual) PT INR APTT Heparin Anti-Xa Level ABG pH POC ABG pO2 ABG pO2 ABG HCO3 ABG O2 Saturation ABG Base Excess POC ABG pCO2 ABG Hemoglobin ABG Oxyhemoglobin ABG Chloride ABG Glucose Oxyhemoglobin Sodium Potassium Chloride Carbon Dioxide BUN Creatinine Glucose POC Glucose 147 H 166 H 123 H Lactic Acid Calcium Phosphorus Magnesium AST ALT Lactate Dehydrogenase Total Bilirubin Direct Bilirubin CK-MB (CK-2) C-Reactive Protein NT-Pro-B Natriuret Pep Total Protein Albumin Arterial Blood Glucose Urine WBC (Auto) Urine Creatinine 12/15/19 12/15/19 12/15/19 05:28 05:29 05:29 WBC 14.9 H RBC 3.19 L Hgb 9.1 L Hct 28.7 L MCHC RDW 16.0 H MCV MCH Lymph % (Auto) [place] % (Auto) [place] # Eos # Lymph # (Auto) [place] # (Auto) Eos # (Auto) Seg Neutrophils % Seg Neuts % (Manual) Baso # (Auto) Lymphocytes % (Manual) Monocytes % (Manual) Eosinophils % (Manual) Basophils % (Manual) Seg Neutrophils # Seg Neutrophils # Man Lymphocytes # (Manual) Monocytes # (Manual) Eosinophils # (Manual) Nucleated RBC % Basophils # (Manual) PT INR APTT Heparin Anti-Xa Level 0.19 L ABG pH POC ABG pO2 ABG pO2 ABG HCO3 ABG O2 Saturation ABG Base Excess POC ABG pCO2 ABG Hemoglobin ABG Oxyhemoglobin ABG Chloride ABG Glucose Oxyhemoglobin Sodium Potassium Chloride Carbon Dioxide BUN Creatinine 0.6 L Glucose 110 H POC Glucose Lactic Acid Calcium Phosphorus Magnesium AST ALT Lactate Dehydrogenase Total Bilirubin Direct Bilirubin CK-MB (CK-2) C-Reactive Protein NT-Pro-B Natriuret Pep Total Protein Albumin Arterial Blood Glucose Urine WBC (Auto) Urine Creatinine 12/15/19 12/15/19 12/15/19 05:53 11:50 17:26 WBC RBC Hgb Hct MCHC RDW MCV MCH Lymph % (Auto) [place] % (Auto) [place] # Eos # Lymph # (Auto) [place] # (Auto) Eos # (Auto) Seg Neutrophils % Seg Neuts % (Manual) Baso # (Auto) Lymphocytes % (Manual) Monocytes % (Manual) Eosinophils % (Manual) Basophils % (Manual) Seg Neutrophils # Seg Neutrophils # Man Lymphocytes # (Manual) Monocytes # (Manual) Eosinophils # (Manual) Nucleated RBC % Basophils # (Manual) PT INR APTT Heparin Anti-Xa Level ABG pH POC ABG pO2 ABG pO2 ABG HCO3 ABG O2 Saturation ABG Base Excess POC ABG pCO2 ABG Hemoglobin ABG Oxyhemoglobin ABG Chloride ABG Glucose Oxyhemoglobin Sodium Potassium Chloride Carbon Dioxide BUN Creatinine Glucose POC Glucose 119 H 132 H 128 H Lactic Acid Calcium Phosphorus Magnesium AST ALT Lactate Dehydrogenase Total Bilirubin Direct Bilirubin CK-MB (CK-2) C-Reactive Protein NT-Pro-B Natriuret Pep Total Protein Albumin Arterial Blood Glucose Urine WBC (Auto) Urine Creatinine 12/15/19 12/16/19 12/16/19 23:11 05:30 05:46 WBC RBC Hgb 8.8 L Hct 27.9 L MCHC RDW MCV MCH Lymph % (Auto) [place] % (Auto) [place] # Eos # Lymph # (Auto) [place] # (Auto) Eos # (Auto) Seg Neutrophils % Seg Neuts % (Manual) Baso # (Auto) Lymphocytes % (Manual) Monocytes % (Manual) Eosinophils % (Manual) Basophils % (Manual) Seg Neutrophils # Seg Neutrophils # Man Lymphocytes # (Manual) Monocytes # (Manual) Eosinophils # (Manual) Nucleated RBC % Basophils # (Manual) PT INR APTT Heparin Anti-Xa Level ABG pH POC ABG pO2 ABG pO2 ABG HCO3 ABG O2 Saturation ABG Base Excess POC ABG pCO2 ABG Hemoglobin ABG Oxyhemoglobin ABG Chloride ABG Glucose Oxyhemoglobin Sodium Potassium Chloride Carbon Dioxide BUN Creatinine Glucose POC Glucose 150 H 134 H Lactic Acid Calcium Phosphorus Magnesium AST ALT Lactate Dehydrogenase Total Bilirubin Direct Bilirubin CK-MB (CK-2) C-Reactive Protein NT-Pro-B Natriuret Pep Total Protein Albumin Arterial Blood Glucose Urine WBC (Auto) Urine Creatinine 12/16/19 12/16/19 12/16/19 05:46 05:46 11:44 WBC RBC Hgb Hct MCHC RDW MCV MCH Lymph % (Auto) [place] % (Auto) [place] # Eos # Lymph # (Auto) [place] # (Auto) Eos # (Auto) Seg Neutrophils % Seg Neuts % (Manual) Baso # (Auto) Lymphocytes % (Manual) Monocytes % (Manual) Eosinophils % (Manual) Basophils % (Manual) Seg Neutrophils # Seg Neutrophils # Man Lymphocytes # (Manual) Monocytes # (Manual) Eosinophils # (Manual) Nucleated RBC % Basophils # (Manual) PT INR APTT Heparin Anti-Xa Level 0.20 L ABG pH POC ABG pO2 ABG pO2 ABG HCO3 ABG O2 Saturation ABG Base Excess POC ABG pCO2 ABG Hemoglobin ABG Oxyhemoglobin ABG Chloride ABG Glucose Oxyhemoglobin Sodium Potassium Chloride Carbon Dioxide 31 H BUN Creatinine 0.5 L Glucose 147 H POC Glucose 164 H Lactic Acid Calcium Phosphorus Magnesium AST ALT Lactate Dehydrogenase Total Bilirubin Direct Bilirubin CK-MB (CK-2) C-Reactive Protein NT-Pro-B Natriuret Pep Total Protein Albumin Arterial Blood Glucose Urine WBC (Auto) Urine Creatinine 12/16/19 12/16/19 12/17/19 17:17 23:49 05:30 WBC 13.9 H RBC 3.27 L Hgb 9.4 L Hct 29.2 L MCHC RDW 16.0 H MCV MCH Lymph % (Auto) [place] % (Auto) 8.8 H [place] # Eos # Lymph # (Auto) [place] # (Auto) 1.2 H Eos # (Auto) 0.5 H Seg Neutrophils % 70.5 H Seg Neuts % (Manual) Baso # (Auto) 0.2 H Lymphocytes % (Manual) Monocytes % (Manual) Eosinophils % (Manual) Basophils % (Manual) Seg Neutrophils # 9.8 H Seg Neutrophils # Man Lymphocytes # (Manual) Monocytes # (Manual) Eosinophils # (Manual) Nucleated RBC % Basophils # (Manual) PT INR APTT Heparin Anti-Xa Level ABG pH POC ABG pO2 ABG pO2 ABG HCO3 ABG O2 Saturation ABG Base Excess POC ABG pCO2 ABG Hemoglobin ABG Oxyhemoglobin ABG Chloride ABG Glucose Oxyhemoglobin Sodium Potassium Chloride Carbon Dioxide BUN Creatinine Glucose POC Glucose 162 H 144 H Lactic Acid Calcium Phosphorus Magnesium AST ALT Lactate Dehydrogenase Total Bilirubin Direct Bilirubin CK-MB (CK-2) C-Reactive Protein NT-Pro-B Natriuret Pep Total Protein Albumin Arterial Blood Glucose Urine WBC (Auto) Urine Creatinine 12/17/19 12/17/19 12/17/19 05:30 06:06 11:50 WBC RBC Hgb Hct MCHC RDW MCV MCH Lymph % (Auto) [place] % (Auto) [place] # Eos # Lymph # (Auto) [place] # (Auto) Eos # (Auto) Seg Neutrophils % Seg Neuts % (Manual) Baso # (Auto) Lymphocytes % (Manual) Monocytes % (Manual) Eosinophils % (Manual) Basophils % (Manual) Seg Neutrophils # Seg Neutrophils # Man Lymphocytes # (Manual) Monocytes # (Manual) Eosinophils # (Manual) Nucleated RBC % Basophils # (Manual) PT INR APTT Heparin Anti-Xa Level ABG pH POC ABG pO2 ABG pO2 ABG HCO3 ABG O2 Saturation ABG Base Excess POC ABG pCO2 ABG Hemoglobin ABG Oxyhemoglobin ABG Chloride ABG Glucose Oxyhemoglobin Sodium Potassium Chloride 97.4 L Carbon Dioxide 32 H BUN Creatinine 0.5 L Glucose 135 H POC Glucose 151 H 140 H Lactic Acid Calcium Phosphorus Magnesium AST ALT Lactate Dehydrogenase Total Bilirubin Direct Bilirubin CK-MB (CK-2) C-Reactive Protein NT-Pro-B Natriuret Pep Total Protein Albumin Arterial Blood Glucose Urine WBC (Auto) Urine Creatinine 12/17/19 12/17/19 12/18/19 17:50 23:46 05:17 WBC RBC Hgb 8.8 L Hct 28.0 L MCHC RDW MCV MCH Lymph % (Auto) [place] % (Auto) [place] # Eos # Lymph # (Auto) [place] # (Auto) Eos # (Auto) Seg Neutrophils % Seg Neuts % (Manual) Baso # (Auto) Lymphocytes % (Manual) Monocytes % (Manual) Eosinophils % (Manual) Basophils % (Manual) Seg Neutrophils # Seg Neutrophils # Man Lymphocytes # (Manual) Monocytes # (Manual) Eosinophils # (Manual) Nucleated RBC % Basophils # (Manual) PT INR APTT Heparin Anti-Xa Level ABG pH POC ABG pO2 ABG pO2 ABG HCO3 ABG O2 Saturation ABG Base Excess POC ABG pCO2 ABG Hemoglobin ABG Oxyhemoglobin ABG Chloride ABG Glucose Oxyhemoglobin Sodium Potassium Chloride Carbon Dioxide BUN Creatinine Glucose POC Glucose 158 H 150 H Lactic Acid Calcium Phosphorus Magnesium AST ALT Lactate Dehydrogenase Total Bilirubin Direct Bilirubin CK-MB (CK-2) C-Reactive Protein NT-Pro-B Natriuret Pep Total Protein Albumin Arterial Blood Glucose Urine WBC (Auto) Urine Creatinine 12/18/19 12/18/19 12/18/19 05:17 05:49 11:12 WBC RBC Hgb Hct MCHC RDW MCV MCH Lymph % (Auto) [place] % (Auto) [place] # Eos # Lymph # (Auto) [place] # (Auto) Eos # (Auto) Seg Neutrophils % Seg Neuts % (Manual) Baso # (Auto) Lymphocytes % (Manual) Monocytes % (Manual) Eosinophils % (Manual) Basophils % (Manual) Seg Neutrophils # Seg Neutrophils # Man Lymphocytes # (Manual) Monocytes # (Manual) Eosinophils # (Manual) Nucleated RBC % Basophils # (Manual) PT INR APTT Heparin Anti-Xa Level 0.16 L ABG pH POC ABG pO2 ABG pO2 ABG HCO3 ABG O2 Saturation ABG Base Excess POC ABG pCO2 ABG Hemoglobin ABG Oxyhemoglobin ABG Chloride ABG Glucose Oxyhemoglobin Sodium Potassium Chloride Carbon Dioxide BUN Creatinine Glucose POC Glucose 127 H 191 H Lactic Acid Calcium Phosphorus Magnesium AST ALT Lactate Dehydrogenase Total Bilirubin Direct Bilirubin CK-MB (CK-2) C-Reactive Protein NT-Pro-B Natriuret Pep Total Protein Albumin Arterial Blood Glucose Urine WBC (Auto) Urine Creatinine 12/18/19 12/18/19 12/19/19 17:03 20:16 00:08 WBC RBC Hgb Hct MCHC RDW MCV MCH Lymph % (Auto) [place] % (Auto) [place] # Eos # Lymph # (Auto) [place] # (Auto) Eos # (Auto) Seg Neutrophils % Seg Neuts % (Manual) Baso # (Auto) Lymphocytes % (Manual) Monocytes % (Manual) Eosinophils % (Manual) Basophils % (Manual) Seg Neutrophils # Seg Neutrophils # Man Lymphocytes # (Manual) Monocytes # (Manual) Eosinophils # (Manual) Nucleated RBC % Basophils # (Manual) PT INR APTT Heparin Anti-Xa Level ABG pH POC ABG pO2 ABG pO2 ABG HCO3 ABG O2 Saturation ABG Base Excess POC ABG pCO2 ABG Hemoglobin ABG Oxyhemoglobin ABG Chloride ABG Glucose Oxyhemoglobin Sodium Potassium Chloride Carbon Dioxide BUN Creatinine Glucose POC Glucose 133 H 128 H 129 H Lactic Acid Calcium Phosphorus Magnesium AST ALT Lactate Dehydrogenase Total Bilirubin Direct Bilirubin CK-MB (CK-2) C-Reactive Protein NT-Pro-B Natriuret Pep Total Protein Albumin Arterial Blood Glucose Urine WBC (Auto) Urine Creatinine 12/19/19 12/19/19 12/19/19 04:45 04:45 05:35 WBC RBC Hgb Hct MCHC RDW MCV MCH Lymph % (Auto) [place] % (Auto) [place] # Eos # Lymph # (Auto) [place] # (Auto) Eos # (Auto) Seg Neutrophils % Seg Neuts % (Manual) Baso # (Auto) Lymphocytes % (Manual) Monocytes % (Manual) Eosinophils % (Manual) Basophils % (Manual) Seg Neutrophils # Seg Neutrophils # Man Lymphocytes # (Manual) Monocytes # (Manual) Eosinophils # (Manual) Nucleated RBC % Basophils # (Manual) PT INR APTT Heparin Anti-Xa Level 0.17 L ABG pH POC ABG pO2 ABG pO2 ABG HCO3 ABG O2 Saturation ABG Base Excess POC ABG pCO2 ABG Hemoglobin ABG Oxyhemoglobin ABG Chloride ABG Glucose Oxyhemoglobin Sodium Potassium Chloride Carbon Dioxide BUN Creatinine Glucose POC Glucose 120 H Lactic Acid Calcium Phosphorus Magnesium AST ALT Lactate Dehydrogenase 228 H Total Bilirubin Direct Bilirubin CK-MB (CK-2) C-Reactive Protein NT-Pro-B Natriuret Pep Total Protein Albumin Arterial Blood Glucose Urine WBC (Auto) Urine Creatinine 12/19/19 12/19/19 12/19/19 09:20 11:32 11:32 WBC 14.6 H RBC 3.08 L Hgb 9.0 L Hct 26.8 L MCHC RDW 15.9 H MCV MCH Lymph % (Auto) [place] % (Auto) [place] # Eos # Lymph # (Auto) [place] # (Auto) Eos # (Auto) Seg Neutrophils % Seg Neuts % (Manual) 82.0 H Baso # (Auto) Lymphocytes % (Manual) 10.0 L Monocytes % (Manual) Eosinophils % (Manual) Basophils % (Manual) Seg Neutrophils # Seg Neutrophils # Man 12.0 H Lymphocytes # (Manual) Monocytes # (Manual) 0.9 H Eosinophils # (Manual) Nucleated RBC % 1.0 H Basophils # (Manual) PT INR APTT Heparin Anti-Xa Level ABG pH 7.451 H POC ABG pO2 ABG pO2 62.6 L ABG HCO3 33.2 H ABG O2 Saturation 93.8 L ABG Base Excess 8.3 H POC ABG pCO2 ABG Hemoglobin 8.3 L ABG Oxyhemoglobin ABG Chloride ABG Glucose Oxyhemoglobin 91.9 L Sodium Potassium Chloride 95.0 L Carbon Dioxide 33 H BUN 22 H Creatinine 0.6 L Glucose 150 H POC Glucose Lactic Acid Calcium Phosphorus Magnesium AST ALT Lactate Dehydrogenase Total Bilirubin Direct Bilirubin CK-MB (CK-2) C-Reactive Protein NT-Pro-B Natriuret Pep Total Protein 6.2 L Albumin 2.4 L Arterial Blood Glucose Urine WBC (Auto) Urine Creatinine 12/19/19 12/19/1920 11:56 18:17 00:09 WBC RBC Hgb Hct MCHC RDW MCV MCH Lymph % (Auto) [place] % (Auto) [place] # Eos # Lymph # (Auto) [place] # (Auto) Eos # (Auto) Seg Neutrophils % Seg Neuts % (Manual) Baso # (Auto) Lymphocytes % (Manual) Monocytes % (Manual) Eosinophils % (Manual) Basophils % (Manual) Seg Neutrophils # Seg Neutrophils # Man Lymphocytes # (Manual) Monocytes # (Manual) Eosinophils # (Manual) Nucleated RBC % Basophils # (Manual) PT INR APTT Heparin Anti-Xa Level ABG pH POC ABG pO2 ABG pO2 ABG HCO3 ABG O2 Saturation ABG Base Excess POC ABG pCO2 ABG Hemoglobin ABG Oxyhemoglobin ABG Chloride ABG Glucose Oxyhemoglobin Sodium Potassium Chloride Carbon Dioxide BUN Creatinine Glucose POC Glucose 156 H 156 H 155 H Lactic Acid Calcium Phosphorus Magnesium AST ALT Lactate Dehydrogenase Total Bilirubin Direct Bilirubin CK-MB (CK-2) C-Reactive Protein NT-Pro-B Natriuret Pep Total Protein Albumin Arterial Blood Glucose Urine WBC (Auto) Urine Creatinine 12/20/19 12/20/19 12/20/19 05:26 06:02 18:17 WBC RBC Hgb Hct MCHC RDW MCV MCH Lymph % (Auto) [place] % (Auto) [place] # Eos # Lymph # (Auto) [place] # (Auto) Eos # (Auto) Seg Neutrophils % Seg Neuts % (Manual) Baso # (Auto) Lymphocytes % (Manual) Monocytes % (Manual) Eosinophils % (Manual) Basophils % (Manual) Seg Neutrophils # Seg Neutrophils # Man Lymphocytes # (Manual) Monocytes # (Manual) Eosinophils # (Manual) Nucleated RBC % Basophils # (Manual) PT INR APTT Heparin Anti-Xa Level 0.19 L ABG pH POC ABG pO2 ABG pO2 ABG HCO3 ABG O2 Saturation ABG Base Excess POC ABG pCO2 ABG Hemoglobin ABG Oxyhemoglobin ABG Chloride ABG Glucose Oxyhemoglobin Sodium Potassium Chloride Carbon Dioxide BUN Creatinine Glucose POC Glucose 137 H 128 H Lactic Acid Calcium Phosphorus Magnesium AST ALT Lactate Dehydrogenase Total Bilirubin Direct Bilirubin CK-MB (CK-2) C-Reactive Protein NT-Pro-B Natriuret Pep Total Protein Albumin Arterial Blood Glucose Urine WBC (Auto) Urine Creatinine 09/27/20 09/28/20 09/28/20 23:34 05:31 05:31 WBC 12.7 H RBC 3.09 L Hgb 8.9 L Hct 27.4 L MCHC RDW 15.8 H MCV MCH Lymph % (Auto) 12.1 L [place] % (Auto) 7.8 H [place] # Eos # Lymph # (Auto) [place] # (Auto) 1.0 H Eos # (Auto) Seg Neutrophils % 77.1 H Seg Neuts % (Manual) Baso # (Auto) Lymphocytes % (Manual) Monocytes % (Manual) Eosinophils % (Manual) Basophils % (Manual) Seg Neutrophils # 9.8 H Seg Neutrophils # Man Lymphocytes # (Manual) Monocytes # (Manual) Eosinophils # (Manual) Nucleated RBC % Basophils # (Manual) PT INR APTT Heparin Anti-Xa Level ABG pH POC ABG pO2 ABG pO2 ABG HCO3 ABG O2 Saturation ABG Base Excess POC ABG pCO2 ABG Hemoglobin ABG Oxyhemoglobin ABG Chloride ABG Glucose Oxyhemoglobin Sodium Potassium Chloride 96.9 L Carbon Dioxide 37 H BUN 27 H Creatinine 0.7 L Glucose 140 H POC Glucose 145 H Lactic Acid Calcium Phosphorus Magnesium AST ALT Lactate Dehydrogenase Total Bilirubin Direct Bilirubin CK-MB (CK-2) C-Reactive Protein NT-Pro-B Natriuret Pep Total Protein Albumin Arterial Blood Glucose Urine WBC (Auto) Urine Creatinine 12/21/19 12/21/19 12/21/19 05:38 10:13 11:51 WBC RBC Hgb Hct MCHC RDW MCV MCH Lymph % (Auto) [place] % (Auto) [place] # Eos # Lymph # (Auto) [place] # (Auto) Eos # (Auto) Seg Neutrophils % Seg Neuts % (Manual) Baso # (Auto) Lymphocytes % (Manual) Monocytes % (Manual) Eosinophils % (Manual) Basophils % (Manual) Seg Neutrophils # Seg Neutrophils # Man Lymphocytes # (Manual) Monocytes # (Manual) Eosinophils # (Manual) Nucleated RBC % Basophils # (Manual) PT INR APTT 23.9 L Heparin Anti-Xa Level < 0.10 L ABG pH POC ABG pO2 ABG pO2 ABG HCO3 ABG O2 Saturation ABG Base Excess POC ABG pCO2 ABG Hemoglobin ABG Oxyhemoglobin ABG Chloride ABG Glucose Oxyhemoglobin Sodium Potassium Chloride Carbon Dioxide BUN Creatinine Glucose POC Glucose 151 H 145 H Lactic Acid Calcium Phosphorus Magnesium AST ALT Lactate Dehydrogenase Total Bilirubin Direct Bilirubin CK-MB (CK-2) C-Reactive Protein NT-Pro-B Natriuret Pep Total Protein Albumin Arterial Blood Glucose Urine WBC (Auto) Urine Creatinine 12/21/19 12/22/19 12/22/19 17:16 00:01 01:33 WBC RBC Hgb Hct MCHC RDW MCV MCH Lymph % (Auto) [place] % (Auto) [place] # Eos # Lymph # (Auto) [place] # (Auto) Eos # (Auto) Seg Neutrophils % Seg Neuts % (Manual) Baso # (Auto) Lymphocytes % (Manual) Monocytes % (Manual) Eosinophils % (Manual) Basophils % (Manual) Seg Neutrophils # Seg Neutrophils # Man Lymphocytes # (Manual) Monocytes # (Manual) Eosinophils # (Manual) Nucleated RBC % Basophils # (Manual) PT INR APTT Heparin Anti-Xa Level 0.10 L ABG pH POC ABG pO2 ABG pO2 ABG HCO3 ABG O2 Saturation ABG Base Excess POC ABG pCO2 ABG Hemoglobin ABG Oxyhemoglobin ABG Chloride ABG Glucose Oxyhemoglobin Sodium Potassium Chloride Carbon Dioxide BUN Creatinine Glucose POC Glucose 167 H 179 H Lactic Acid Calcium Phosphorus Magnesium AST ALT Lactate Dehydrogenase Total Bilirubin Direct Bilirubin CK-MB (CK-2) C-Reactive Protein NT-Pro-B Natriuret Pep Total Protein Albumin Arterial Blood Glucose Urine WBC (Auto) Urine Creatinine 12/22/19 12/22/19 12/22/19 03:22 05:10 05:10 WBC 13.8 H RBC 3.20 L Hgb 8.9 L Hct 28.1 L MCHC RDW 15.9 H MCV MCH Lymph % (Auto) [place] % (Auto) [place] # Eos # Lymph # (Auto) [place] # (Auto) Eos # (Auto) Seg Neutrophils % Seg Neuts % (Manual) Baso # (Auto) Lymphocytes % (Manual) Monocytes % (Manual) Eosinophils % (Manual) Basophils % (Manual) Seg Neutrophils # Seg Neutrophils # Man Lymphocytes # (Manual) Monocytes # (Manual) Eosinophils # (Manual) Nucleated RBC % Basophils # (Manual) PT INR APTT Heparin Anti-Xa Level ABG pH POC ABG pO2 52.3 L ABG pO2 ABG HCO3 ABG O2 Saturation ABG Base Excess POC ABG pCO2 52.9 H ABG Hemoglobin 10.7 L ABG Oxyhemoglobin 84 L ABG Chloride ABG Glucose Oxyhemoglobin Sodium Potassium Chloride 96.6 L Carbon Dioxide BUN 25 H Creatinine 0.7 L Glucose 129 H POC Glucose Lactic Acid Calcium Phosphorus Magnesium AST ALT Lactate Dehydrogenase Total Bilirubin Direct Bilirubin CK-MB (CK-2) C-Reactive Protein NT-Pro-B Natriuret Pep Total Protein Albumin Arterial Blood Glucose Urine WBC (Auto) Urine Creatinine 12/22/19 12/22/19 12/22/19 05:18 12:32 12:43 WBC RBC Hgb Hct MCHC RDW MCV MCH Lymph % (Auto) [place] % (Auto) [place] # Eos # Lymph # (Auto) [place] # (Auto) Eos # (Auto) Seg Neutrophils % Seg Neuts % (Manual) Baso # (Auto) Lymphocytes % (Manual) Monocytes % (Manual) Eosinophils % (Manual) Basophils % (Manual) Seg Neutrophils # Seg Neutrophils # Man Lymphocytes # (Manual) Monocytes # (Manual) Eosinophils # (Manual) Nucleated RBC % Basophils # (Manual) PT INR APTT Heparin Anti-Xa Level 0.18 L ABG pH POC ABG pO2 ABG pO2 ABG HCO3 ABG O2 Saturation ABG Base Excess POC ABG pCO2 ABG Hemoglobin ABG Oxyhemoglobin ABG Chloride ABG Glucose Oxyhemoglobin Sodium Potassium Chloride Carbon Dioxide BUN Creatinine Glucose POC Glucose 131 H 208 H Lactic Acid Calcium Phosphorus Magnesium AST ALT Lactate Dehydrogenase Total Bilirubin Direct Bilirubin CK-MB (CK-2) C-Reactive Protein NT-Pro-B Natriuret Pep Total Protein Albumin Arterial Blood Glucose Urine WBC (Auto) Urine Creatinine 12/22/19 12/22/19 12/23/19 17:44 23:20 03:51 WBC 15.2 H RBC 3.43 L Hgb 9.6 L Hct 30.3 L MCHC RDW 15.9 H MCV MCH Lymph % (Auto) [place] % (Auto) [place] # Eos # Lymph # (Auto) [place] # (Auto) Eos # (Auto) Seg Neutrophils % Seg Neuts % (Manual) Baso # (Auto) Lymphocytes % (Manual) Monocytes % (Manual) Eosinophils % (Manual) Basophils % (Manual) Seg Neutrophils # Seg Neutrophils # Man Lymphocytes # (Manual) Monocytes # (Manual) Eosinophils # (Manual) Nucleated RBC % Basophils # (Manual) PT INR APTT Heparin Anti-Xa Level ABG pH POC ABG pO2 ABG pO2 ABG HCO3 ABG O2 Saturation ABG Base Excess POC ABG pCO2 ABG Hemoglobin ABG Oxyhemoglobin ABG Chloride ABG Glucose Oxyhemoglobin Sodium Potassium Chloride Carbon Dioxide BUN Creatinine Glucose POC Glucose 209 H 119 H Lactic Acid Calcium Phosphorus Magnesium AST ALT Lactate Dehydrogenase Total Bilirubin Direct Bilirubin CK-MB (CK-2) C-Reactive Protein NT-Pro-B Natriuret Pep Total Protein Albumin Arterial Blood Glucose Urine WBC (Auto) Urine Creatinine 12/23/19 12/23/19 12/23/19 03:51 05:31 12:09 WBC RBC Hgb Hct MCHC RDW MCV MCH Lymph % (Auto) [place] % (Auto) [place] # Eos # Lymph # (Auto) [place] # (Auto) Eos # (Auto) Seg Neutrophils % Seg Neuts % (Manual) Baso # (Auto) Lymphocytes % (Manual) Monocytes % (Manual) Eosinophils % (Manual) Basophils % (Manual) Seg Neutrophils # Seg Neutrophils # Man Lymphocytes # (Manual) Monocytes # (Manual) Eosinophils # (Manual) Nucleated RBC % Basophils # (Manual) PT INR APTT Heparin Anti-Xa Level ABG pH POC ABG pO2 ABG pO2 ABG HCO3 ABG O2 Saturation ABG Base Excess POC ABG pCO2 ABG Hemoglobin ABG Oxyhemoglobin ABG Chloride ABG Glucose Oxyhemoglobin Sodium Potassium Chloride 97.2 L Carbon Dioxide 31 H BUN 23 H Creatinine 0.6 L Glucose 153 H POC Glucose 149 H 144 H Lactic Acid Calcium Phosphorus Magnesium AST ALT Lactate Dehydrogenase Total Bilirubin Direct Bilirubin CK-MB (CK-2) C-Reactive Protein NT-Pro-B Natriuret Pep Total Protein Albumin Arterial Blood Glucose Urine WBC (Auto) Urine Creatinine 12/23/19 12/23/19 12/23/19 15:30 17:49 23:31 WBC RBC Hgb Hct MCHC RDW MCV MCH Lymph % (Auto) [place] % (Auto) [place] # Eos # Lymph # (Auto) [place] # (Auto) Eos # (Auto) Seg Neutrophils % Seg Neuts % (Manual) Baso # (Auto) Lymphocytes % (Manual) Monocytes % (Manual) Eosinophils % (Manual) Basophils % (Manual) Seg Neutrophils # Seg Neutrophils # Man Lymphocytes # (Manual) Monocytes # (Manual) Eosinophils # (Manual) Nucleated RBC % Basophils # (Manual) PT INR APTT Heparin Anti-Xa Level 0.21 L ABG pH POC ABG pO2 ABG pO2 ABG HCO3 ABG O2 Saturation ABG Base Excess POC ABG pCO2 ABG Hemoglobin ABG Oxyhemoglobin ABG Chloride ABG Glucose Oxyhemoglobin Sodium Potassium Chloride Carbon Dioxide BUN Creatinine Glucose POC Glucose 192 H 151 H Lactic Acid Calcium Phosphorus Magnesium AST ALT Lactate Dehydrogenase Total Bilirubin Direct Bilirubin CK-MB (CK-2) C-Reactive Protein NT-Pro-B Natriuret Pep Total Protein Albumin Arterial Blood Glucose Urine WBC (Auto) Urine Creatinine 12/24/19 12/24/19 12/24/19 05:34 12:13 16:50 WBC RBC Hgb Hct MCHC RDW MCV MCH Lymph % (Auto) [place] % (Auto) [place] # Eos # Lymph # (Auto) [place] # (Auto) Eos # (Auto) Seg Neutrophils % Seg Neuts % (Manual) Baso # (Auto) Lymphocytes % (Manual) Monocytes % (Manual) Eosinophils % (Manual) Basophils % (Manual) Seg Neutrophils # Seg Neutrophils # Man Lymphocytes # (Manual) Monocytes # (Manual) Eosinophils # (Manual) Nucleated RBC % Basophils # (Manual) PT INR APTT Heparin Anti-Xa Level 0.16 L ABG pH POC ABG pO2 ABG pO2 ABG HCO3 ABG O2 Saturation ABG Base Excess POC ABG pCO2 ABG Hemoglobin ABG Oxyhemoglobin ABG Chloride ABG Glucose Oxyhemoglobin Sodium Potassium Chloride Carbon Dioxide BUN Creatinine Glucose POC Glucose 145 H 124 H Lactic Acid Calcium Phosphorus Magnesium AST ALT Lactate Dehydrogenase Total Bilirubin Direct Bilirubin CK-MB (CK-2) C-Reactive Protein NT-Pro-B Natriuret Pep Total Protein Albumin Arterial Blood Glucose Urine WBC (Auto) Urine Creatinine 12/24/19 12/25/19 12/25/19 17:53 00:14 04:18 WBC 12.9 H RBC 3.30 L Hgb 9.1 L Hct 28.8 L MCHC RDW 16.4 H MCV MCH Lymph % (Auto) [place] % (Auto) 7.8 H [place] # Eos # Lymph # (Auto) [place] # (Auto) 1.0 H Eos # (Auto) Seg Neutrophils % 75.5 H Seg Neuts % (Manual) Baso # (Auto) Lymphocytes % (Manual) Monocytes % (Manual) Eosinophils % (Manual) Basophils % (Manual) Seg Neutrophils # 9.7 H Seg Neutrophils # Man Lymphocytes # (Manual) Monocytes # (Manual) Eosinophils # (Manual) Nucleated RBC % Basophils # (Manual) PT INR APTT Heparin Anti-Xa Level ABG pH POC ABG pO2 ABG pO2 ABG HCO3 ABG O2 Saturation ABG Base Excess POC ABG pCO2 ABG Hemoglobin ABG Oxyhemoglobin ABG Chloride ABG Glucose Oxyhemoglobin Sodium Potassium Chloride Carbon Dioxide BUN Creatinine Glucose POC Glucose 164 H 148 H Lactic Acid Calcium Phosphorus Magnesium AST ALT Lactate Dehydrogenase Total Bilirubin Direct Bilirubin CK-MB (CK-2) C-Reactive Protein NT-Pro-B Natriuret Pep Total Protein Albumin Arterial Blood Glucose Urine WBC (Auto) Urine Creatinine 12/25/19 12/25/19 12/25/19 04:18 05:38 11:44 WBC RBC Hgb Hct MCHC RDW MCV MCH Lymph % (Auto) [place] % (Auto) [place] # Eos # Lymph # (Auto) [place] # (Auto) Eos # (Auto) Seg Neutrophils % Seg Neuts % (Manual) Baso # (Auto) Lymphocytes % (Manual) Monocytes % (Manual) Eosinophils % (Manual) Basophils % (Manual) Seg Neutrophils # Seg Neutrophils # Man Lymphocytes # (Manual) Monocytes # (Manual) Eosinophils # (Manual) Nucleated RBC % Basophils # (Manual) PT INR APTT Heparin Anti-Xa Level ABG pH POC ABG pO2 ABG pO2 ABG HCO3 ABG O2 Saturation ABG Base Excess POC ABG pCO2 ABG Hemoglobin ABG Oxyhemoglobin ABG Chloride ABG Glucose Oxyhemoglobin Sodium Potassium Chloride Carbon Dioxide 33 H BUN 27 H Creatinine 0.6 L Glucose 132 H POC Glucose 152 H 166 H Lactic Acid Calcium Phosphorus Magnesium AST ALT Lactate Dehydrogenase Total Bilirubin Direct Bilirubin CK-MB (CK-2) C-Reactive Protein NT-Pro-B Natriuret Pep Total Protein Albumin Arterial Blood Glucose Urine WBC (Auto) Urine Creatinine 12/25/19 12/26/19 12/26/19 18:29 00:17 00:18 WBC RBC Hgb Hct MCHC RDW MCV MCH Lymph % (Auto) [place] % (Auto) [place] # Eos # Lymph # (Auto) [place] # (Auto) Eos # (Auto) Seg Neutrophils % Seg Neuts % (Manual) Baso # (Auto) Lymphocytes % (Manual) Monocytes % (Manual) Eosinophils % (Manual) Basophils % (Manual) Seg Neutrophils # Seg Neutrophils # Man Lymphocytes # (Manual) Monocytes # (Manual) Eosinophils # (Manual) Nucleated RBC % Basophils # (Manual) PT INR APTT Heparin Anti-Xa Level ABG pH POC ABG pO2 ABG pO2 ABG HCO3 ABG O2 Saturation ABG Base Excess POC ABG pCO2 ABG Hemoglobin ABG Oxyhemoglobin ABG Chloride ABG Glucose Oxyhemoglobin Sodium Potassium Chloride 97.8 L Carbon Dioxide BUN 25 H Creatinine 0.6 L Glucose 140 H POC Glucose 194 H 151 H Lactic Acid Calcium Phosphorus Magnesium AST ALT Lactate Dehydrogenase Total Bilirubin Direct Bilirubin CK-MB (CK-2) C-Reactive Protein NT-Pro-B Natriuret Pep Total Protein Albumin Arterial Blood Glucose Urine WBC (Auto) Urine Creatinine 12/26/19 12/26/19 12/26/19 05:36 11:41 17:50 WBC RBC Hgb Hct MCHC RDW MCV MCH Lymph % (Auto) [place] % (Auto) [place] # Eos # Lymph # (Auto) [place] # (Auto) Eos # (Auto) Seg Neutrophils % Seg Neuts % (Manual) Baso # (Auto) Lymphocytes % (Manual) Monocytes % (Manual) Eosinophils % (Manual) Basophils % (Manual) Seg Neutrophils # Seg Neutrophils # Man Lymphocytes # (Manual) Monocytes # (Manual) Eosinophils # (Manual) Nucleated RBC % Basophils # (Manual) PT INR APTT Heparin Anti-Xa Level ABG pH POC ABG pO2 ABG pO2 ABG HCO3 ABG O2 Saturation ABG Base Excess POC ABG pCO2 ABG Hemoglobin ABG Oxyhemoglobin ABG Chloride ABG Glucose Oxyhemoglobin Sodium Potassium Chloride Carbon Dioxide BUN Creatinine Glucose POC Glucose 156 H 148 H 139 H Lactic Acid Calcium Phosphorus Magnesium AST ALT Lactate Dehydrogenase Total Bilirubin Direct Bilirubin CK-MB (CK-2) C-Reactive Protein NT-Pro-B Natriuret Pep Total Protein Albumin Arterial Blood Glucose Urine WBC (Auto) Urine Creatinine 12/26/19 12/27/19 12/27/19 23:19 05:34 12:02 WBC RBC Hgb Hct MCHC RDW MCV MCH Lymph % (Auto) [place] % (Auto) [place] # Eos # Lymph # (Auto) [place] # (Auto) Eos # (Auto) Seg Neutrophils % Seg Neuts % (Manual) Baso # (Auto) Lymphocytes % (Manual) Monocytes % (Manual) Eosinophils % (Manual) Basophils % (Manual) Seg Neutrophils # Seg Neutrophils # Man Lymphocytes # (Manual) Monocytes # (Manual) Eosinophils # (Manual) Nucleated RBC % Basophils # (Manual) PT INR APTT Heparin Anti-Xa Level ABG pH POC ABG pO2 ABG pO2 ABG HCO3 ABG O2 Saturation ABG Base Excess POC ABG pCO2 ABG Hemoglobin ABG Oxyhemoglobin ABG Chloride ABG Glucose Oxyhemoglobin Sodium Potassium Chloride Carbon Dioxide BUN Creatinine Glucose POC Glucose 161 H 145 H 157 H Lactic Acid Calcium Phosphorus Magnesium AST ALT Lactate Dehydrogenase Total Bilirubin Direct Bilirubin CK-MB (CK-2) C-Reactive Protein NT-Pro-B Natriuret Pep Total Protein Albumin Arterial Blood Glucose Urine WBC (Auto) Urine Creatinine 12/27/19 12/27/19 12/27/19 17:35 20:11 23:00 WBC RBC Hgb Hct MCHC RDW MCV MCH Lymph % (Auto) [place] % (Auto) [place] # Eos # Lymph # (Auto) [place] # (Auto) Eos # (Auto) Seg Neutrophils % Seg Neuts % (Manual) Baso # (Auto) Lymphocytes % (Manual) Monocytes % (Manual) Eosinophils % (Manual) Basophils % (Manual) Seg Neutrophils # Seg Neutrophils # Man Lymphocytes # (Manual) Monocytes # (Manual) Eosinophils # (Manual) Nucleated RBC % Basophils # (Manual) PT INR APTT Heparin Anti-Xa Level 0.19 L ABG pH POC ABG pO2 ABG pO2 ABG HCO3 ABG O2 Saturation ABG Base Excess POC ABG pCO2 ABG Hemoglobin ABG Oxyhemoglobin ABG Chloride ABG Glucose Oxyhemoglobin Sodium Potassium Chloride Carbon Dioxide BUN Creatinine Glucose POC Glucose 158 H 155 H Lactic Acid Calcium Phosphorus Magnesium AST ALT Lactate Dehydrogenase Total Bilirubin Direct Bilirubin CK-MB (CK-2) C-Reactive Protein NT-Pro-B Natriuret Pep Total Protein Albumin Arterial Blood Glucose Urine WBC (Auto) Urine Creatinine 12/27/19 12/28/19 12/28/19 23:45 02:41 02:41 WBC 13.0 H RBC 3.48 L Hgb 9.5 L Hct 30.6 L MCHC 31 L RDW 16.6 H MCV MCH 27 L Lymph % (Auto) 13.0 L [place] % (Auto) 8.0 H [place] # Eos # Lymph # (Auto) [place] # (Auto) 1.0 H Eos # (Auto) Seg Neutrophils % 76.3 H Seg Neuts % (Manual) Baso # (Auto) Lymphocytes % (Manual) Monocytes % (Manual) Eosinophils % (Manual) Basophils % (Manual) Seg Neutrophils # 9.9 H Seg Neutrophils # Man Lymphocytes # (Manual) Monocytes # (Manual) Eosinophils # (Manual) Nucleated RBC % Basophils # (Manual) PT INR APTT Heparin Anti-Xa Level ABG pH POC ABG pO2 ABG pO2 ABG HCO3 ABG O2 Saturation ABG Base Excess POC ABG pCO2 ABG Hemoglobin ABG Oxyhemoglobin ABG Chloride ABG Glucose Oxyhemoglobin Sodium Potassium Chloride Carbon Dioxide BUN 22 H Creatinine 0.6 L Glucose 101 H POC Glucose 130 H Lactic Acid Calcium Phosphorus Magnesium AST ALT Lactate Dehydrogenase Total Bilirubin Direct Bilirubin CK-MB (CK-2) C-Reactive Protein NT-Pro-B Natriuret Pep Total Protein Albumin Arterial Blood Glucose Urine WBC (Auto) Urine Creatinine 12/28/19 12/28/19 12/28/19 06:00 12:34 18:13 WBC RBC Hgb Hct MCHC RDW MCV MCH Lymph % (Auto) [place] % (Auto) [place] # Eos # Lymph # (Auto) [place] # (Auto) Eos # (Auto) Seg Neutrophils % Seg Neuts % (Manual) Baso # (Auto) Lymphocytes % (Manual) Monocytes % (Manual) Eosinophils % (Manual) Basophils % (Manual) Seg Neutrophils # Seg Neutrophils # Man Lymphocytes # (Manual) Monocytes # (Manual) Eosinophils # (Manual) Nucleated RBC % Basophils # (Manual) PT INR APTT Heparin Anti-Xa Level ABG pH POC ABG pO2 ABG pO2 ABG HCO3 ABG O2 Saturation ABG Base Excess POC ABG pCO2 ABG Hemoglobin ABG Oxyhemoglobin ABG Chloride ABG Glucose Oxyhemoglobin Sodium Potassium Chloride Carbon Dioxide BUN Creatinine Glucose POC Glucose 150 H 161 H 128 H Lactic Acid Calcium Phosphorus Magnesium AST ALT Lactate Dehydrogenase Total Bilirubin Direct Bilirubin CK-MB (CK-2) C-Reactive Protein NT-Pro-B Natriuret Pep Total Protein Albumin Arterial Blood Glucose Urine WBC (Auto) Urine Creatinine 12/28/19 12/29/19 12/29/19 23:36 05:21 11:40 WBC RBC Hgb Hct MCHC RDW MCV MCH Lymph % (Auto) [place] % (Auto) [place] # Eos # Lymph # (Auto) [place] # (Auto) Eos # (Auto) Seg Neutrophils % Seg Neuts % (Manual) Baso # (Auto) Lymphocytes % (Manual) Monocytes % (Manual) Eosinophils % (Manual) Basophils % (Manual) Seg Neutrophils # Seg Neutrophils # Man Lymphocytes # (Manual) Monocytes # (Manual) Eosinophils # (Manual) Nucleated RBC % Basophils # (Manual) PT INR APTT Heparin Anti-Xa Level ABG pH POC ABG pO2 ABG pO2 ABG HCO3 ABG O2 Saturation ABG Base Excess POC ABG pCO2 ABG Hemoglobin ABG Oxyhemoglobin ABG Chloride ABG Glucose Oxyhemoglobin Sodium Potassium Chloride Carbon Dioxide BUN Creatinine Glucose POC Glucose 137 H 136 H 166 H Lactic Acid Calcium Phosphorus Magnesium AST ALT Lactate Dehydrogenase Total Bilirubin Direct Bilirubin CK-MB (CK-2) C-Reactive Protein NT-Pro-B Natriuret Pep Total Protein Albumin Arterial Blood Glucose Urine WBC (Auto) Urine Creatinine 12/29/19 12/29/19 12/29/19 17:23 19:21 23:38 WBC RBC Hgb Hct MCHC RDW MCV MCH Lymph % (Auto) [place] % (Auto) [place] # Eos # Lymph # (Auto) [place] # (Auto) Eos # (Auto) Seg Neutrophils % Seg Neuts % (Manual) Baso # (Auto) Lymphocytes % (Manual) Monocytes % (Manual) Eosinophils % (Manual) Basophils % (Manual) Seg Neutrophils # Seg Neutrophils # Man Lymphocytes # (Manual) Monocytes # (Manual) Eosinophils # (Manual) Nucleated RBC % Basophils # (Manual) PT INR APTT Heparin Anti-Xa Level 0.20 L ABG pH POC ABG pO2 ABG pO2 ABG HCO3 ABG O2 Saturation ABG Base Excess POC ABG pCO2 ABG Hemoglobin ABG Oxyhemoglobin ABG Chloride ABG Glucose Oxyhemoglobin Sodium Potassium Chloride Carbon Dioxide BUN Creatinine Glucose POC Glucose 144 H 141 H Lactic Acid Calcium Phosphorus Magnesium AST ALT Lactate Dehydrogenase Total Bilirubin Direct Bilirubin CK-MB (CK-2) C-Reactive Protein NT-Pro-B Natriuret Pep Total Protein Albumin Arterial Blood Glucose Urine WBC (Auto) Urine Creatinine 12/30/19 12/30/19 12/30/19 03:58 03:58 04:59 WBC RBC 3.54 L Hgb 9.8 L Hct 30.7 L MCHC RDW 16.8 H MCV MCH Lymph % (Auto) [place] % (Auto) [place] # Eos # Lymph # (Auto) [place] # (Auto) Eos # (Auto) Seg Neutrophils % Seg Neuts % (Manual) Baso # (Auto) Lymphocytes % (Manual) Monocytes % (Manual) Eosinophils % (Manual) Basophils % (Manual) Seg Neutrophils # Seg Neutrophils # Man Lymphocytes # (Manual) Monocytes # (Manual) Eosinophils # (Manual) Nucleated RBC % Basophils # (Manual) PT INR APTT Heparin Anti-Xa Level ABG pH POC ABG pO2 ABG pO2 ABG HCO3 29.8 H ABG O2 Saturation ABG Base Excess 4.8 H POC ABG pCO2 ABG Hemoglobin 11.2 L ABG Oxyhemoglobin ABG Chloride ABG Glucose Oxyhemoglobin 93.8 L Sodium Potassium Chloride 97.8 L Carbon Dioxide BUN 26 H Creatinine Glucose 168 H POC Glucose Lactic Acid Calcium Phosphorus Magnesium AST ALT Lactate Dehydrogenase Total Bilirubin Direct Bilirubin CK-MB (CK-2) C-Reactive Protein NT-Pro-B Natriuret Pep Total Protein Albumin Arterial Blood Glucose Urine WBC (Auto) Urine Creatinine 12/30/19 12/30/19 12/30/19 05:45 11:34 17:28 WBC RBC Hgb Hct MCHC RDW MCV MCH Lymph % (Auto) [place] % (Auto) [place] # Eos # Lymph # (Auto) [place] # (Auto) Eos # (Auto) Seg Neutrophils % Seg Neuts % (Manual) Baso # (Auto) Lymphocytes % (Manual) Monocytes % (Manual) Eosinophils % (Manual) Basophils % (Manual) Seg Neutrophils # Seg Neutrophils # Man Lymphocytes # (Manual) Monocytes # (Manual) Eosinophils # (Manual) Nucleated RBC % Basophils # (Manual) PT INR APTT Heparin Anti-Xa Level ABG pH POC ABG pO2 ABG pO2 ABG HCO3 ABG O2 Saturation ABG Base Excess POC ABG pCO2 ABG Hemoglobin ABG Oxyhemoglobin ABG Chloride ABG Glucose Oxyhemoglobin Sodium Potassium Chloride Carbon Dioxide BUN Creatinine Glucose POC Glucose 163 H 180 H 150 H Lactic Acid Calcium Phosphorus Magnesium AST ALT Lactate Dehydrogenase Total Bilirubin Direct Bilirubin CK-MB (CK-2) C-Reactive Protein NT-Pro-B Natriuret Pep Total Protein Albumin Arterial Blood Glucose Urine WBC (Auto) Urine Creatinine 12/30/19 12/31/19 12/31/19 23:43 04:55 05:07 WBC RBC Hgb Hct MCHC RDW MCV MCH Lymph % (Auto) [place] % (Auto) [place] # Eos # Lymph # (Auto) [place] # (Auto) Eos # (Auto) Seg Neutrophils % Seg Neuts % (Manual) Baso # (Auto) Lymphocytes % (Manual) Monocytes % (Manual) Eosinophils % (Manual) Basophils % (Manual) Seg Neutrophils # Seg Neutrophils # Man Lymphocytes # (Manual) Monocytes # (Manual) Eosinophils # (Manual) Nucleated RBC % Basophils # (Manual) PT INR APTT Heparin Anti-Xa Level ABG pH POC ABG pO2 ABG pO2 ABG HCO3 ABG O2 Saturation ABG Base Excess POC ABG pCO2 ABG Hemoglobin ABG Oxyhemoglobin ABG Chloride ABG Glucose Oxyhemoglobin Sodium Potassium 5.6 H D Chloride Carbon Dioxide BUN 33 H Creatinine Glucose 131 H POC Glucose 142 H 134 H Lactic Acid Calcium Phosphorus Magnesium AST ALT Lactate Dehydrogenase Total Bilirubin Direct Bilirubin CK-MB (CK-2) C-Reactive Protein NT-Pro-B Natriuret Pep Total Protein Albumin Arterial Blood Glucose Urine WBC (Auto) Urine Creatinine 12/31/19 12/31/19 12/31/19 11:30 17:19 17:36 WBC RBC Hgb Hct MCHC RDW MCV MCH Lymph % (Auto) [place] % (Auto) [place] # Eos # Lymph # (Auto) [place] # (Auto) Eos # (Auto) Seg Neutrophils % Seg Neuts % (Manual) Baso # (Auto) Lymphocytes % (Manual) Monocytes % (Manual) Eosinophils % (Manual) Basophils % (Manual) Seg Neutrophils # Seg Neutrophils # Man Lymphocytes # (Manual) Monocytes # (Manual) Eosinophils # (Manual) Nucleated RBC % Basophils # (Manual) PT INR APTT Heparin Anti-Xa Level ABG pH POC ABG pO2 ABG pO2 ABG HCO3 ABG O2 Saturation ABG Base Excess POC ABG pCO2 ABG Hemoglobin ABG Oxyhemoglobin ABG Chloride ABG Glucose Oxyhemoglobin Sodium Potassium Chloride Carbon Dioxide BUN 35 H Creatinine Glucose 156 H POC Glucose 158 H 181 H Lactic Acid Calcium Phosphorus Magnesium AST ALT Lactate Dehydrogenase Total Bilirubin Direct Bilirubin CK-MB (CK-2) C-Reactive Protein NT-Pro-B Natriuret Pep Total Protein Albumin Arterial Blood Glucose Urine WBC (Auto) Urine Creatinine 12/31/19 12/31/19 12/31/19 18:16 19:41 21:53 WBC RBC Hgb Hct MCHC RDW MCV MCH Lymph % (Auto) [place] % (Auto) [place] # Eos # Lymph # (Auto) [place] # (Auto) Eos # (Auto) Seg Neutrophils % Seg Neuts % (Manual) Baso # (Auto) Lymphocytes % (Manual) Monocytes % (Manual) Eosinophils % (Manual) Basophils % (Manual) Seg Neutrophils # Seg Neutrophils # Man Lymphocytes # (Manual) Monocytes # (Manual) Eosinophils # (Manual) Nucleated RBC % Basophils # (Manual) PT INR APTT Heparin Anti-Xa Level 0.20 L ABG pH POC ABG pO2 ABG pO2 ABG HCO3 ABG O2 Saturation ABG Base Excess POC ABG pCO2 ABG Hemoglobin ABG Oxyhemoglobin ABG Chloride ABG Glucose Oxyhemoglobin Sodium Potassium Chloride Carbon Dioxide BUN 34 H Creatinine Glucose 169 H POC Glucose 141 H Lactic Acid Calcium Phosphorus Magnesium AST ALT Lactate Dehydrogenase Total Bilirubin Direct Bilirubin CK-MB (CK-2) C-Reactive Protein NT-Pro-B Natriuret Pep Total Protein Albumin Arterial Blood Glucose Urine WBC (Auto) Urine Creatinine 12/31/19 01/01/20 01/01/20 23:51 05:17 10:40 WBC RBC Hgb Hct MCHC RDW MCV MCH Lymph % (Auto) [place] % (Auto) [place] # Eos # Lymph # (Auto) [place] # (Auto) Eos # (Auto) Seg Neutrophils % Seg Neuts % (Manual) Baso # (Auto) Lymphocytes % (Manual) Monocytes % (Manual) Eosinophils % (Manual) Basophils % (Manual) Seg Neutrophils # Seg Neutrophils # Man Lymphocytes # (Manual) Monocytes # (Manual) Eosinophils # (Manual) Nucleated RBC % Basophils # (Manual) PT INR APTT Heparin Anti-Xa Level ABG pH POC ABG pO2 ABG pO2 ABG HCO3 ABG O2 Saturation ABG Base Excess POC ABG pCO2 ABG Hemoglobin ABG Oxyhemoglobin ABG Chloride ABG Glucose Oxyhemoglobin Sodium Potassium Chloride Carbon Dioxide BUN 31 H Creatinine 0.7 L Glucose 137 H POC Glucose 131 H 155 H Lactic Acid Calcium Phosphorus Magnesium AST 73 H ALT 97 H Lactate Dehydrogenase Total Bilirubin Direct Bilirubin CK-MB (CK-2) C-Reactive Protein NT-Pro-B Natriuret Pep 3866 H Total Protein Albumin 2.8 L Arterial Blood Glucose Urine WBC (Auto) Urine Creatinine 01/01/20 01/01/20 01/01/20 12:26 15:33 17:53 WBC 14.3 H RBC 3.35 L Hgb 9.1 L Hct 28.8 L MCHC RDW 17.0 H MCV MCH 27 L Lymph % (Auto) 7.0 L [place] % (Auto) 7.6 H [place] # Eos # Lymph # (Auto) 1.0 L [place] # (Auto) 1.1 H Eos # (Auto) Seg Neutrophils % 83.3 H Seg Neuts % (Manual) Baso # (Auto) Lymphocytes % (Manual) Monocytes % (Manual) Eosinophils % (Manual) Basophils % (Manual) Seg Neutrophils # 12.0 H Seg Neutrophils # Man Lymphocytes # (Manual) Monocytes # (Manual) Eosinophils # (Manual) Nucleated RBC % Basophils # (Manual) PT INR APTT Heparin Anti-Xa Level ABG pH POC ABG pO2 ABG pO2 ABG HCO3 ABG O2 Saturation ABG Base Excess POC ABG pCO2 ABG Hemoglobin ABG Oxyhemoglobin ABG Chloride ABG Glucose Oxyhemoglobin Sodium Potassium Chloride Carbon Dioxide BUN Creatinine Glucose POC Glucose 128 H 128 H Lactic Acid Calcium Phosphorus Magnesium AST ALT Lactate Dehydrogenase Total Bilirubin Direct Bilirubin CK-MB (CK-2) C-Reactive Protein NT-Pro-B Natriuret Pep Total Protein Albumin Arterial Blood Glucose Urine WBC (Auto) Urine Creatinine 01/01/20 01/02/20 01/02/20 23:04 05:39 07:00 WBC RBC Hgb Hct MCHC RDW MCV MCH Lymph % (Auto) [place] % (Auto) [place] # Eos # Lymph # (Auto) [place] # (Auto) Eos # (Auto) Seg Neutrophils % Seg Neuts % (Manual) Baso # (Auto) Lymphocytes % (Manual) Monocytes % (Manual) Eosinophils % (Manual) Basophils % (Manual) Seg Neutrophils # Seg Neutrophils # Man Lymphocytes # (Manual) Monocytes # (Manual) Eosinophils # (Manual) Nucleated RBC % Basophils # (Manual) PT INR APTT Heparin Anti-Xa Level 0.13 L ABG pH POC ABG pO2 ABG pO2 ABG HCO3 ABG O2 Saturation ABG Base Excess POC ABG pCO2 ABG Hemoglobin ABG Oxyhemoglobin ABG Chloride ABG Glucose Oxyhemoglobin Sodium Potassium Chloride Carbon Dioxide BUN Creatinine Glucose POC Glucose 120 H 169 H Lactic Acid Calcium Phosphorus Magnesium AST ALT Lactate Dehydrogenase Total Bilirubin Direct Bilirubin CK-MB (CK-2) C-Reactive Protein NT-Pro-B Natriuret Pep Total Protein Albumin Arterial Blood Glucose Urine WBC (Auto) Urine Creatinine 01/02/20 01/02/20 01/02/20 12:15 14:06 17:58 WBC RBC Hgb Hct MCHC RDW MCV MCH Lymph % (Auto) [place] % (Auto) [place] # Eos # Lymph # (Auto) [place] # (Auto) Eos # (Auto) Seg Neutrophils % Seg Neuts % (Manual) Baso # (Auto) Lymphocytes % (Manual) Monocytes % (Manual) Eosinophils % (Manual) Basophils % (Manual) Seg Neutrophils # Seg Neutrophils # Man Lymphocytes # (Manual) Monocytes # (Manual) Eosinophils # (Manual) Nucleated RBC % Basophils # (Manual) PT INR APTT Heparin Anti-Xa Level < 0.10 L ABG pH POC ABG pO2 ABG pO2 ABG HCO3 ABG O2 Saturation ABG Base Excess POC ABG pCO2 ABG Hemoglobin ABG Oxyhemoglobin ABG Chloride ABG Glucose Oxyhemoglobin Sodium Potassium Chloride Carbon Dioxide BUN Creatinine Glucose POC Glucose 190 H 198 H Lactic Acid Calcium Phosphorus Magnesium AST ALT Lactate Dehydrogenase Total Bilirubin Direct Bilirubin CK-MB (CK-2) C-Reactive Protein NT-Pro-B Natriuret Pep Total Protein Albumin Arterial Blood Glucose Urine WBC (Auto) Urine Creatinine 01/02/20 01/02/20 01/03/20 21:43 23:33 05:42 WBC RBC Hgb Hct MCHC RDW MCV MCH Lymph % (Auto) [place] % (Auto) [place] # Eos # Lymph # (Auto) [place] # (Auto) Eos # (Auto) Seg Neutrophils % Seg Neuts % (Manual) Baso # (Auto) Lymphocytes % (Manual) Monocytes % (Manual) Eosinophils % (Manual) Basophils % (Manual) Seg Neutrophils # Seg Neutrophils # Man Lymphocytes # (Manual) Monocytes # (Manual) Eosinophils # (Manual) Nucleated RBC % Basophils # (Manual) PT INR APTT Heparin Anti-Xa Level 0.10 L ABG pH POC ABG pO2 ABG pO2 ABG HCO3 ABG O2 Saturation ABG Base Excess POC ABG pCO2 ABG Hemoglobin ABG Oxyhemoglobin ABG Chloride ABG Glucose Oxyhemoglobin Sodium Potassium Chloride Carbon Dioxide BUN Creatinine Glucose POC Glucose 180 H 163 H Lactic Acid Calcium Phosphorus Magnesium AST ALT Lactate Dehydrogenase Total Bilirubin Direct Bilirubin CK-MB (CK-2) C-Reactive Protein NT-Pro-B Natriuret Pep Total Protein Albumin Arterial Blood Glucose Urine WBC (Auto) Urine Creatinine 01/03/20 01/03/20 01/03/20 06:50 07:25 07:45 WBC 12.1 H RBC 3.35 L Hgb 9.0 L Hct 28.9 L MCHC 31 L RDW 16.6 H MCV MCH 27 L Lymph % (Auto) 13.0 L [place] % (Auto) 8.6 H [place] # Eos # Lymph # (Auto) [place] # (Auto) 1.0 H Eos # (Auto) Seg Neutrophils % 75.9 H Seg Neuts % (Manual) Baso # (Auto) Lymphocytes % (Manual) Monocytes % (Manual) Eosinophils % (Manual) Basophils % (Manual) Seg Neutrophils # 9.2 H Seg Neutrophils # Man Lymphocytes # (Manual) Monocytes # (Manual) Eosinophils # (Manual) Nucleated RBC % Basophils # (Manual) PT INR APTT Heparin Anti-Xa Level 0.29 L ABG pH POC ABG pO2 ABG pO2 ABG HCO3 ABG O2 Saturation ABG Base Excess POC ABG pCO2 ABG Hemoglobin ABG Oxyhemoglobin ABG Chloride ABG Glucose Oxyhemoglobin Sodium Potassium 3.3 L D Chloride Carbon Dioxide 35 H D BUN 23 H Creatinine 0.6 L Glucose 149 H POC Glucose Lactic Acid Calcium Phosphorus Magnesium AST ALT 88 H Lactate Dehydrogenase Total Bilirubin Direct Bilirubin CK-MB (CK-2) C-Reactive Protein NT-Pro-B Natriuret Pep Total Protein 6.2 L Albumin 2.9 L Arterial Blood Glucose Urine WBC (Auto) Urine Creatinine 01/03/20 01/03/20 01/03/20 12:05 17:42 18:30 WBC RBC Hgb Hct MCHC RDW MCV MCH Lymph % (Auto) [place] % (Auto) [place] # Eos # Lymph # (Auto) [place] # (Auto) Eos # (Auto) Seg Neutrophils % Seg Neuts % (Manual) Baso # (Auto) Lymphocytes % (Manual) Monocytes % (Manual) Eosinophils % (Manual) Basophils % (Manual) Seg Neutrophils # Seg Neutrophils # Man Lymphocytes # (Manual) Monocytes # (Manual) Eosinophils # (Manual) Nucleated RBC % Basophils # (Manual) PT INR APTT Heparin Anti-Xa Level ABG pH POC ABG pO2 ABG pO2 70.7 L ABG HCO3 36.1 H ABG O2 Saturation 94.4 L ABG Base Excess 10.0 H POC ABG pCO2 ABG Hemoglobin 9.7 L ABG Oxyhemoglobin ABG Chloride ABG Glucose Oxyhemoglobin 91.8 L Sodium Potassium Chloride Carbon Dioxide BUN Creatinine Glucose POC Glucose 128 H 132 H Lactic Acid Calcium Phosphorus Magnesium AST ALT Lactate Dehydrogenase Total Bilirubin Direct Bilirubin CK-MB (CK-2) C-Reactive Protein NT-Pro-B Natriuret Pep Total Protein Albumin Arterial Blood Glucose Urine WBC (Auto) Urine Creatinine 01/04/20 01/04/20 01/04/20 00:10 04:26 05:23 WBC RBC Hgb Hct MCHC RDW MCV MCH Lymph % (Auto) [place] % (Auto) [place] # Eos # Lymph # (Auto) [place] # (Auto) Eos # (Auto) Seg Neutrophils % Seg Neuts % (Manual) Baso # (Auto) Lymphocytes % (Manual) Monocytes % (Manual) Eosinophils % (Manual) Basophils % (Manual) Seg Neutrophils # Seg Neutrophils # Man Lymphocytes # (Manual) Monocytes # (Manual) Eosinophils # (Manual) Nucleated RBC % Basophils # (Manual) PT INR APTT Heparin Anti-Xa Level 0.16 L ABG pH POC ABG pO2 ABG pO2 ABG HCO3 ABG O2 Saturation ABG Base Excess POC ABG pCO2 ABG Hemoglobin ABG Oxyhemoglobin ABG Chloride ABG Glucose Oxyhemoglobin Sodium Potassium Chloride Carbon Dioxide BUN Creatinine Glucose POC Glucose 121 H 119 H Lactic Acid Calcium Phosphorus Magnesium AST ALT Lactate Dehydrogenase Total Bilirubin Direct Bilirubin CK-MB (CK-2) C-Reactive Protein NT-Pro-B Natriuret Pep Total Protein Albumin Arterial Blood Glucose Urine WBC (Auto) Urine Creatinine 01/04/20 01/04/20 01/04/20 09:50 09:50 12:18 WBC 15.4 H RBC 3.30 L Hgb 8.7 L Hct 28.2 L MCHC 31 L RDW 17.0 H MCV MCH 26 L Lymph % (Auto) [place] % (Auto) 7.6 H [place] # Eos # Lymph # (Auto) [place] # (Auto) 1.2 H Eos # (Auto) Seg Neutrophils % 75.4 H Seg Neuts % (Manual) Baso # (Auto) Lymphocytes % (Manual) Monocytes % (Manual) Eosinophils % (Manual) Basophils % (Manual) Seg Neutrophils # 11.6 H Seg Neutrophils # Man Lymphocytes # (Manual) Monocytes # (Manual) Eosinophils # (Manual) Nucleated RBC % Basophils # (Manual) PT INR APTT Heparin Anti-Xa Level ABG pH POC ABG pO2 ABG pO2 ABG HCO3 ABG O2 Saturation ABG Base Excess POC ABG pCO2 ABG Hemoglobin ABG Oxyhemoglobin ABG Chloride ABG Glucose Oxyhemoglobin Sodium 148 H Potassium 3.5 L Chloride Carbon Dioxide 32 H BUN Creatinine 0.6 L Glucose 114 H POC Glucose 111 H Lactic Acid Calcium Phosphorus Magnesium AST ALT 59 H Lactate Dehydrogenase Total Bilirubin Direct Bilirubin CK-MB (CK-2) C-Reactive Protein NT-Pro-B Natriuret Pep Total Protein Albumin 2.6 L Arterial Blood Glucose Urine WBC (Auto) Urine Creatinine 01/05/20 01/05/20 01/05/20 04:05 04:05 05:19 WBC 11.7 H RBC 3.50 L Hgb 9.3 L Hct 29.9 L MCHC 31 L RDW 16.6 H MCV MCH 27 L Lymph % (Auto) 13.1 L [place] % (Auto) 9.7 H [place] # Eos # Lymph # (Auto) [place] # (Auto) 1.1 H Eos # (Auto) Seg Neutrophils % 74.0 H Seg Neuts % (Manual) Baso # (Auto) Lymphocytes % (Manual) Monocytes % (Manual) Eosinophils % (Manual) Basophils % (Manual) Seg Neutrophils # 8.6 H Seg Neutrophils # Man Lymphocytes # (Manual) Monocytes # (Manual) Eosinophils # (Manual) Nucleated RBC % Basophils # (Manual) PT INR APTT Heparin Anti-Xa Level ABG pH POC ABG pO2 ABG pO2 ABG HCO3 ABG O2 Saturation ABG Base Excess POC ABG pCO2 ABG Hemoglobin ABG Oxyhemoglobin ABG Chloride ABG Glucose Oxyhemoglobin Sodium 151 H Potassium Chloride Carbon Dioxide 34 H BUN Creatinine 0.7 L Glucose POC Glucose 112 H Lactic Acid Calcium Phosphorus Magnesium AST ALT 59 H Lactate Dehydrogenase Total Bilirubin Direct Bilirubin CK-MB (CK-2) C-Reactive Protein NT-Pro-B Natriuret Pep Total Protein 5.8 L Albumin 2.6 L Arterial Blood Glucose Urine WBC (Auto) Urine Creatinine 01/05/20 01/06/20 01/06/20 16:04 00:23 04:44 WBC RBC 3.36 L Hgb 8.9 L Hct 28.7 L MCHC 31 L RDW 16.9 H MCV MCH 26 L Lymph % (Auto) [place] % (Auto) 9.4 H [place] # Eos # Lymph # (Auto) [place] # (Auto) Eos # (Auto) Seg Neutrophils % Seg Neuts % (Manual) Baso # (Auto) Lymphocytes % (Manual) Monocytes % (Manual) Eosinophils % (Manual) Basophils % (Manual) Seg Neutrophils # Seg Neutrophils # Man Lymphocytes # (Manual) Monocytes # (Manual) Eosinophils # (Manual) Nucleated RBC % Basophils # (Manual) PT INR APTT Heparin Anti-Xa Level ABG pH POC ABG pO2 ABG pO2 ABG HCO3 ABG O2 Saturation ABG Base Excess POC ABG pCO2 ABG Hemoglobin ABG Oxyhemoglobin ABG Chloride ABG Glucose Oxyhemoglobin Sodium 151 H Potassium 3.2 L Chloride Carbon Dioxide 34 H BUN Creatinine 0.6 L Glucose POC Glucose 107 H Lactic Acid Calcium Phosphorus Magnesium AST ALT Lactate Dehydrogenase Total Bilirubin Direct Bilirubin CK-MB (CK-2) C-Reactive Protein NT-Pro-B Natriuret Pep Total Protein Albumin Arterial Blood Glucose Urine WBC (Auto) Urine Creatinine 01/06/20 01/06/20 01/06/20 04:44 05:33 12:04 WBC RBC Hgb Hct MCHC RDW MCV MCH Lymph % (Auto) [place] % (Auto) [place] # Eos # Lymph # (Auto) [place] # (Auto) Eos # (Auto) Seg Neutrophils % Seg Neuts % (Manual) Baso # (Auto) Lymphocytes % (Manual) Monocytes % (Manual) Eosinophils % (Manual) Basophils % (Manual) Seg Neutrophils # Seg Neutrophils # Man Lymphocytes # (Manual) Monocytes # (Manual) Eosinophils # (Manual) Nucleated RBC % Basophils # (Manual) PT INR APTT Heparin Anti-Xa Level ABG pH POC ABG pO2 ABG pO2 ABG HCO3 ABG O2 Saturation ABG Base Excess POC ABG pCO2 ABG Hemoglobin ABG Oxyhemoglobin ABG Chloride ABG Glucose Oxyhemoglobin Sodium 151 H Potassium 3.4 L Chloride Carbon Dioxide 33 H BUN Creatinine 0.6 L Glucose 118 H POC Glucose 118 H 123 H Lactic Acid Calcium Phosphorus Magnesium AST ALT Lactate Dehydrogenase Total Bilirubin Direct Bilirubin CK-MB (CK-2) C-Reactive Protein NT-Pro-B Natriuret Pep Total Protein 6.2 L Albumin 2.6 L Arterial Blood Glucose Urine WBC (Auto) Urine Creatinine 01/06/20 01/07/20 01/07/20 17:54 00:06 04:10 WBC RBC 3.42 L Hgb 8.9 L Hct 29.0 L MCHC 31 L RDW 17.1 H MCV MCH 26 L Lymph % (Auto) [place] % (Auto) 8.4 H [place] # Eos # Lymph # (Auto) [place] # (Auto) Eos # (Auto) Seg Neutrophils % Seg Neuts % (Manual) Baso # (Auto) Lymphocytes % (Manual) Monocytes % (Manual) Eosinophils % (Manual) Basophils % (Manual) Seg Neutrophils # Seg Neutrophils # Man Lymphocytes # (Manual) Monocytes # (Manual) Eosinophils # (Manual) Nucleated RBC % Basophils # (Manual) PT INR APTT Heparin Anti-Xa Level ABG pH POC ABG pO2 ABG pO2 ABG HCO3 ABG O2 Saturation ABG Base Excess POC ABG pCO2 ABG Hemoglobin ABG Oxyhemoglobin ABG Chloride ABG Glucose Oxyhemoglobin Sodium Potassium Chloride Carbon Dioxide BUN Creatinine Glucose POC Glucose 112 H 126 H Lactic Acid Calcium Phosphorus Magnesium AST ALT Lactate Dehydrogenase Total Bilirubin Direct Bilirubin CK-MB (CK-2) C-Reactive Protein NT-Pro-B Natriuret Pep Total Protein Albumin Arterial Blood Glucose Urine WBC (Auto) Urine Creatinine 01/07/20 01/07/20 01/07/20 04:10 05:59 12:27 WBC RBC Hgb Hct MCHC RDW MCV MCH Lymph % (Auto) [place] % (Auto) [place] # Eos # Lymph # (Auto) [place] # (Auto) Eos # (Auto) Seg Neutrophils % Seg Neuts % (Manual) Baso # (Auto) Lymphocytes % (Manual) Monocytes % (Manual) Eosinophils % (Manual) Basophils % (Manual) Seg Neutrophils # Seg Neutrophils # Man Lymphocytes # (Manual) Monocytes # (Manual) Eosinophils # (Manual) Nucleated RBC % Basophils # (Manual) PT INR APTT Heparin Anti-Xa Level ABG pH POC ABG pO2 ABG pO2 ABG HCO3 ABG O2 Saturation ABG Base Excess POC ABG pCO2 ABG Hemoglobin ABG Oxyhemoglobin ABG Chloride ABG Glucose Oxyhemoglobin Sodium 153 H Potassium 3.5 L Chloride Carbon Dioxide 34 H BUN Creatinine 0.6 L Glucose 121 H POC Glucose 121 H 126 H Lactic Acid Calcium Phosphorus Magnesium AST ALT Lactate Dehydrogenase Total Bilirubin Direct Bilirubin CK-MB (CK-2) C-Reactive Protein NT-Pro-B Natriuret Pep Total Protein 5.9 L Albumin 2.4 L Arterial Blood Glucose Urine WBC (Auto) Urine Creatinine 01/07/20 01/08/20 01/08/20 18:12 00:03 05:41 WBC RBC Hgb Hct MCHC RDW MCV MCH Lymph % (Auto) [place] % (Auto) [place] # Eos # Lymph # (Auto) [place] # (Auto) Eos # (Auto) Seg Neutrophils % Seg Neuts % (Manual) Baso # (Auto) Lymphocytes % (Manual) Monocytes % (Manual) Eosinophils % (Manual) Basophils % (Manual) Seg Neutrophils # Seg Neutrophils # Man Lymphocytes # (Manual) Monocytes # (Manual) Eosinophils # (Manual) Nucleated RBC % Basophils # (Manual) PT INR APTT Heparin Anti-Xa Level ABG pH POC ABG pO2 ABG pO2 ABG HCO3 ABG O2 Saturation ABG Base Excess POC ABG pCO2 ABG Hemoglobin ABG Oxyhemoglobin ABG Chloride ABG Glucose Oxyhemoglobin Sodium Potassium Chloride Carbon Dioxide BUN Creatinine Glucose POC Glucose 124 H 130 H 138 H Lactic Acid Calcium Phosphorus Magnesium AST ALT Lactate Dehydrogenase Total Bilirubin Direct Bilirubin CK-MB (CK-2) C-Reactive Protein NT-Pro-B Natriuret Pep Total Protein Albumin Arterial Blood Glucose Urine WBC (Auto) Urine Creatinine 01/08/20 01/08/20 01/08/20 09:28 11:42 18:21 WBC RBC Hgb Hct MCHC RDW MCV MCH Lymph % (Auto) [place] % (Auto) [place] # Eos # Lymph # (Auto) [place] # (Auto) Eos # (Auto) Seg Neutrophils % Seg Neuts % (Manual) Baso # (Auto) Lymphocytes % (Manual) Monocytes % (Manual) Eosinophils % (Manual) Basophils % (Manual) Seg Neutrophils # Seg Neutrophils # Man Lymphocytes # (Manual) Monocytes # (Manual) Eosinophils # (Manual) Nucleated RBC % Basophils # (Manual) PT INR APTT Heparin Anti-Xa Level ABG pH POC ABG pO2 ABG pO2 ABG HCO3 ABG O2 Saturation ABG Base Excess POC ABG pCO2 ABG Hemoglobin ABG Oxyhemoglobin ABG Chloride ABG Glucose Oxyhemoglobin Sodium Potassium Chloride Carbon Dioxide BUN Creatinine Glucose POC Glucose 181 H 150 H 129 H Lactic Acid Calcium Phosphorus Magnesium AST ALT Lactate Dehydrogenase Total Bilirubin Direct Bilirubin CK-MB (CK-2) C-Reactive Protein NT-Pro-B Natriuret Pep Total Protein Albumin Arterial Blood Glucose Urine WBC (Auto) Urine Creatinine 01/08/20 01/08/20 01/09/20 19:25 23:55 04:11 WBC RBC 3.43 L Hgb 8.9 L Hct 28.7 L MCHC 31 L RDW 17.6 H MCV MCH 26 L Lymph % (Auto) [place] % (Auto) 8.6 H [place] # Eos # Lymph # (Auto) [place] # (Auto) Eos # (Auto) Seg Neutrophils % Seg Neuts % (Manual) Baso # (Auto) Lymphocytes % (Manual) Monocytes % (Manual) Eosinophils % (Manual) Basophils % (Manual) Seg Neutrophils # Seg Neutrophils # Man Lymphocytes # (Manual) Monocytes # (Manual) Eosinophils # (Manual) Nucleated RBC % Basophils # (Manual) PT INR APTT Heparin Anti-Xa Level ABG pH POC ABG pO2 ABG pO2 ABG HCO3 ABG O2 Saturation ABG Base Excess POC ABG pCO2 ABG Hemoglobin ABG Oxyhemoglobin ABG Chloride ABG Glucose Oxyhemoglobin Sodium Potassium Chloride Carbon Dioxide BUN Creatinine 0.7 L Glucose 117 H POC Glucose 132 H Lactic Acid Calcium Phosphorus Magnesium AST ALT Lactate Dehydrogenase Total Bilirubin Direct Bilirubin CK-MB (CK-2) C-Reactive Protein NT-Pro-B Natriuret Pep Total Protein Albumin Arterial Blood Glucose Urine WBC (Auto) Urine Creatinine 01/09/20 01/09/20 01/09/20 04:11 05:38 22:58 WBC RBC Hgb Hct MCHC RDW MCV MCH Lymph % (Auto) [place] % (Auto) [place] # Eos # Lymph # (Auto) [place] # (Auto) Eos # (Auto) Seg Neutrophils % Seg Neuts % (Manual) Baso # (Auto) Lymphocytes % (Manual) Monocytes % (Manual) Eosinophils % (Manual) Basophils % (Manual) Seg Neutrophils # Seg Neutrophils # Man Lymphocytes # (Manual) Monocytes # (Manual) Eosinophils # (Manual) Nucleated RBC % Basophils # (Manual) PT INR APTT Heparin Anti-Xa Level ABG pH POC ABG pO2 ABG pO2 ABG HCO3 ABG O2 Saturation ABG Base Excess POC ABG pCO2 ABG Hemoglobin ABG Oxyhemoglobin ABG Chloride ABG Glucose Oxyhemoglobin Sodium 147 H Potassium 3.3 L D Chloride Carbon Dioxide 32 H BUN Creatinine 0.6 L Glucose 106 H POC Glucose 107 H 113 H Lactic Acid Calcium Phosphorus Magnesium AST ALT Lactate Dehydrogenase Total Bilirubin Direct Bilirubin CK-MB (CK-2) C-Reactive Protein NT-Pro-B Natriuret Pep Total Protein Albumin Arterial Blood Glucose Urine WBC (Auto) Urine Creatinine 01/10/20 01/10/20 01/10/20 04:05 11:36 17:54 WBC RBC Hgb Hct MCHC RDW MCV MCH Lymph % (Auto) [place] % (Auto) [place] # Eos # Lymph # (Auto) [place] # (Auto) Eos # (Auto) Seg Neutrophils % Seg Neuts % (Manual) Baso # (Auto) Lymphocytes % (Manual) Monocytes % (Manual) Eosinophils % (Manual) Basophils % (Manual) Seg Neutrophils # Seg Neutrophils # Man Lymphocytes # (Manual) Monocytes # (Manual) Eosinophils # (Manual) Nucleated RBC % Basophils # (Manual) PT INR APTT Heparin Anti-Xa Level ABG pH POC ABG pO2 ABG pO2 ABG HCO3 ABG O2 Saturation ABG Base Excess POC ABG pCO2 ABG Hemoglobin ABG Oxyhemoglobin ABG Chloride ABG Glucose Oxyhemoglobin Sodium Potassium Chloride Carbon Dioxide BUN Creatinine 0.7 L Glucose 110 H POC Glucose 129 H 117 H Lactic Acid Calcium Phosphorus Magnesium AST ALT Lactate Dehydrogenase Total Bilirubin Direct Bilirubin CK-MB (CK-2) C-Reactive Protein NT-Pro-B Natriuret Pep Total Protein Albumin Arterial Blood Glucose Urine WBC (Auto) Urine Creatinine 01/10/20 01/11/20 01/11/20 23:52 03:19 12:09 WBC RBC Hgb Hct MCHC RDW MCV MCH Lymph % (Auto) [place] % (Auto) [place] # Eos # Lymph # (Auto) [place] # (Auto) Eos # (Auto) Seg Neutrophils % Seg Neuts % (Manual) Baso # (Auto) Lymphocytes % (Manual) Monocytes % (Manual) Eosinophils % (Manual) Basophils % (Manual) Seg Neutrophils # Seg Neutrophils # Man Lymphocytes # (Manual) Monocytes # (Manual) Eosinophils # (Manual) Nucleated RBC % Basophils # (Manual) PT INR APTT Heparin Anti-Xa Level ABG pH POC ABG pO2 ABG pO2 ABG HCO3 ABG O2 Saturation ABG Base Excess POC ABG pCO2 ABG Hemoglobin ABG Oxyhemoglobin ABG Chloride ABG Glucose Oxyhemoglobin Sodium Potassium Chloride Carbon Dioxide BUN Creatinine Glucose POC Glucose 117 H 136 H 115 H Lactic Acid Calcium Phosphorus Magnesium AST ALT Lactate Dehydrogenase Total Bilirubin Direct Bilirubin CK-MB (CK-2) C-Reactive Protein NT-Pro-B Natriuret Pep Total Protein Albumin Arterial Blood Glucose Urine WBC (Auto) Urine Creatinine 01/11/20 01/11/20 01/12/20 18:27 23:28 00:23 WBC RBC Hgb 9.8 L Hct 31.6 L MCHC 31 L RDW 17.8 H MCV 83 L MCH 26 L Lymph % (Auto) [place] % (Auto) 8.0 H [place] # Eos # Lymph # (Auto) [place] # (Auto) Eos # (Auto) Seg Neutrophils % Seg Neuts % (Manual) Baso # (Auto) Lymphocytes % (Manual) Monocytes % (Manual) Eosinophils % (Manual) Basophils % (Manual) Seg Neutrophils # Seg Neutrophils # Man Lymphocytes # (Manual) Monocytes # (Manual) Eosinophils # (Manual) Nucleated RBC % Basophils # (Manual) PT INR APTT Heparin Anti-Xa Level ABG pH POC ABG pO2 ABG pO2 ABG HCO3 ABG O2 Saturation ABG Base Excess POC ABG pCO2 ABG Hemoglobin ABG Oxyhemoglobin ABG Chloride ABG Glucose Oxyhemoglobin Sodium Potassium Chloride Carbon Dioxide BUN Creatinine Glucose POC Glucose 118 H 122 H Lactic Acid Calcium Phosphorus Magnesium AST ALT Lactate Dehydrogenase Total Bilirubin Direct Bilirubin CK-MB (CK-2) C-Reactive Protein NT-Pro-B Natriuret Pep Total Protein Albumin Arterial Blood Glucose Urine WBC (Auto) Urine Creatinine 01/12/20 01/12/20 01/12/20 00:23 04:18 04:18 WBC RBC Hgb 9.6 L Hct 30.9 L MCHC 31 L RDW 17.3 H MCV 81 L MCH 25 L Lymph % (Auto) [place] % (Auto) [place] # Eos # Lymph # (Auto) [place] # (Auto) Eos # (Auto) Seg Neutrophils % Seg Neuts % (Manual) Baso # (Auto) Lymphocytes % (Manual) Monocytes % (Manual) Eosinophils % (Manual) Basophils % (Manual) Seg Neutrophils # Seg Neutrophils # Man Lymphocytes # (Manual) Monocytes # (Manual) Eosinophils # (Manual) Nucleated RBC % Basophils # (Manual) PT INR APTT Heparin Anti-Xa Level ABG pH POC ABG pO2 ABG pO2 ABG HCO3 ABG O2 Saturation ABG Base Excess POC ABG pCO2 ABG Hemoglobin ABG Oxyhemoglobin ABG Chloride ABG Glucose Oxyhemoglobin Sodium Potassium Chloride Carbon Dioxide BUN Creatinine 0.7 L 0.7 L Glucose 111 H 108 H POC Glucose Lactic Acid Calcium Phosphorus Magnesium AST ALT Lactate Dehydrogenase Total Bilirubin Direct Bilirubin CK-MB (CK-2) C-Reactive Protein NT-Pro-B Natriuret Pep Total Protein Albumin 2.6 L Arterial Blood Glucose Urine WBC (Auto) Urine Creatinine 01/12/20 01/12/20 01/12/20 06:03 12:27 13:58 WBC RBC Hgb Hct MCHC RDW MCV MCH Lymph % (Auto) [place] % (Auto) [place] # Eos # Lymph # (Auto) [place] # (Auto) Eos # (Auto) Seg Neutrophils % Seg Neuts % (Manual) Baso # (Auto) Lymphocytes % (Manual) Monocytes % (Manual) Eosinophils % (Manual) Basophils % (Manual) Seg Neutrophils # Seg Neutrophils # Man Lymphocytes # (Manual) Monocytes # (Manual) Eosinophils # (Manual) Nucleated RBC % Basophils # (Manual) PT INR APTT Heparin Anti-Xa Level ABG pH 7.453 H POC ABG pO2 76.6 L ABG pO2 ABG HCO3 ABG O2 Saturation ABG Base Excess POC ABG pCO2 ABG Hemoglobin 10.3 L ABG Oxyhemoglobin ABG Chloride ABG Glucose 99 H Oxyhemoglobin Sodium Potassium Chloride Carbon Dioxide BUN Creatinine Glucose POC Glucose 128 H 121 H Lactic Acid Calcium Phosphorus Magnesium AST ALT Lactate Dehydrogenase Total Bilirubin Direct Bilirubin CK-MB (CK-2) C-Reactive Protein NT-Pro-B Natriuret Pep Total Protein Albumin Arterial Blood Glucose 99 H Urine WBC (Auto) Urine Creatinine 01/12/20 01/13/20 01/13/20 18:24 12:01 17:46 WBC RBC Hgb Hct MCHC RDW MCV MCH Lymph % (Auto) [place] % (Auto) [place] # Eos # Lymph # (Auto) [place] # (Auto) Eos # (Auto) Seg Neutrophils % Seg Neuts % (Manual) Baso # (Auto) Lymphocytes % (Manual) Monocytes % (Manual) Eosinophils % (Manual) Basophils % (Manual) Seg Neutrophils # Seg Neutrophils # Man Lymphocytes # (Manual) Monocytes # (Manual) Eosinophils # (Manual) Nucleated RBC % Basophils # (Manual) PT INR APTT Heparin Anti-Xa Level ABG pH POC ABG pO2 ABG pO2 ABG HCO3 ABG O2 Saturation ABG Base Excess POC ABG pCO2 ABG Hemoglobin ABG Oxyhemoglobin ABG Chloride ABG Glucose Oxyhemoglobin Sodium Potassium Chloride Carbon Dioxide BUN Creatinine Glucose POC Glucose 119 H 107 H 124 H Lactic Acid Calcium Phosphorus Magnesium AST ALT Lactate Dehydrogenase Total Bilirubin Direct Bilirubin CK-MB (CK-2) C-Reactive Protein NT-Pro-B Natriuret Pep Total Protein Albumin Arterial Blood Glucose Urine WBC (Auto) Urine Creatinine 01/13/20 01/14/20 01/14/20 20:40 00:10 05:33 WBC RBC Hgb Hct MCHC RDW MCV MCH Lymph % (Auto) [place] % (Auto) [place] # Eos # Lymph # (Auto) [place] # (Auto) Eos # (Auto) Seg Neutrophils % Seg Neuts % (Manual) Baso # (Auto) Lymphocytes % (Manual) Monocytes % (Manual) Eosinophils % (Manual) Basophils % (Manual) Seg Neutrophils # Seg Neutrophils # Man Lymphocytes # (Manual) Monocytes # (Manual) Eosinophils # (Manual) Nucleated RBC % Basophils # (Manual) PT INR APTT Heparin Anti-Xa Level ABG pH POC ABG pO2 ABG pO2 65.3 L ABG HCO3 31.8 H ABG O2 Saturation 93.5 L ABG Base Excess 6.7 H POC ABG pCO2 ABG Hemoglobin 13.3 L ABG Oxyhemoglobin ABG Chloride ABG Glucose Oxyhemoglobin 90.9 L Sodium Potassium Chloride Carbon Dioxide BUN Creatinine Glucose POC Glucose 111 H 111 H Lactic Acid Calcium Phosphorus Magnesium AST ALT Lactate Dehydrogenase Total Bilirubin Direct Bilirubin CK-MB (CK-2) C-Reactive Protein NT-Pro-B Natriuret Pep Total Protein Albumin Arterial Blood Glucose Urine WBC (Auto) Urine Creatinine 01/14/20 01/14/20 01/14/20 12:10 16:14 16:14 WBC RBC Hgb 10.6 L Hct 34.2 L MCHC 31 L RDW 18.3 H MCV 83 L MCH 26 L Lymph % (Auto) [place] % (Auto) 7.4 H [place] # Eos # Lymph # (Auto) [place] # (Auto) Eos # (Auto) Seg Neutrophils % 71.9 H Seg Neuts % (Manual) Baso # (Auto) Lymphocytes % (Manual) Monocytes % (Manual) Eosinophils % (Manual) Basophils % (Manual) Seg Neutrophils # Seg Neutrophils # Man Lymphocytes # (Manual) Monocytes # (Manual) Eosinophils # (Manual) Nucleated RBC % Basophils # (Manual) PT INR APTT Heparin Anti-Xa Level ABG pH POC ABG pO2 ABG pO2 ABG HCO3 ABG O2 Saturation ABG Base Excess POC ABG pCO2 ABG Hemoglobin ABG Oxyhemoglobin ABG Chloride ABG Glucose Oxyhemoglobin Sodium Potassium Chloride Carbon Dioxide 31 H BUN Creatinine 0.6 L Glucose 131 H POC Glucose 139 H Lactic Acid Calcium Phosphorus Magnesium AST ALT Lactate Dehydrogenase Total Bilirubin Direct Bilirubin CK-MB (CK-2) C-Reactive Protein NT-Pro-B Natriuret Pep Total Protein Albumin Arterial Blood Glucose Urine WBC (Auto) Urine Creatinine 01/14/20 01/15/2001/14/20 18:05 00:52 05:35 WBC RBC Hgb Hct MCHC RDW MCV MCH Lymph % (Auto) [place] % (Auto) [place] # Eos # Lymph # (Auto) [place] # (Auto) Eos # (Auto) Seg Neutrophils % Seg Neuts % (Manual) Baso # (Auto) Lymphocytes % (Manual) Monocytes % (Manual) Eosinophils % (Manual) Basophils % (Manual) Seg Neutrophils # Seg Neutrophils # Man Lymphocytes # (Manual) Monocytes # (Manual) Eosinophils # (Manual) Nucleated RBC % Basophils # (Manual) PT INR APTT Heparin Anti-Xa Level ABG pH POC ABG pO2 ABG pO2 ABG HCO3 ABG O2 Saturation ABG Base Excess POC ABG pCO2 ABG Hemoglobin ABG Oxyhemoglobin ABG Chloride ABG Glucose Oxyhemoglobin Sodium Potassium Chloride Carbon Dioxide BUN Creatinine Glucose POC Glucose 147 H 140 H 159 H Lactic Acid Calcium Phosphorus Magnesium AST ALT Lactate Dehydrogenase Total Bilirubin Direct Bilirubin CK-MB (CK-2) C-Reactive Protein NT-Pro-B Natriuret Pep Total Protein Albumin Arterial Blood Glucose Urine WBC (Auto) Urine Creatinine 01/15/20 01/15/20 01/16/20 12:52 17:43 00:32 WBC RBC Hgb Hct MCHC RDW MCV MCH Lymph % (Auto) [place] % (Auto) [place] # Eos # Lymph # (Auto) [place] # (Auto) Eos # (Auto) Seg Neutrophils % Seg Neuts % (Manual) Baso # (Auto) Lymphocytes % (Manual) Monocytes % (Manual) Eosinophils % (Manual) Basophils % (Manual) Seg Neutrophils # Seg Neutrophils # Man Lymphocytes # (Manual) Monocytes # (Manual) Eosinophils # (Manual) Nucleated RBC % Basophils # (Manual) PT INR APTT Heparin Anti-Xa Level ABG pH POC ABG pO2 ABG pO2 ABG HCO3 ABG O2 Saturation ABG Base Excess POC ABG pCO2 ABG Hemoglobin ABG Oxyhemoglobin ABG Chloride ABG Glucose Oxyhemoglobin Sodium Potassium Chloride Carbon Dioxide BUN Creatinine Glucose POC Glucose 164 H 167 H 153 H Lactic Acid Calcium Phosphorus Magnesium AST ALT Lactate Dehydrogenase Total Bilirubin Direct Bilirubin CK-MB (CK-2) C-Reactive Protein NT-Pro-B Natriuret Pep Total Protein Albumin Arterial Blood Glucose Urine WBC (Auto) Urine Creatinine 01/16/20 01/16/20 01/17/20 05:46 11:48 06:38 WBC RBC Hgb Hct MCHC RDW MCV MCH Lymph % (Auto) [place] % (Auto) [place] # Eos # Lymph # (Auto) [place] # (Auto) Eos # (Auto) Seg Neutrophils % Seg Neuts % (Manual) Baso # (Auto) Lymphocytes % (Manual) Monocytes % (Manual) Eosinophils % (Manual) Basophils % (Manual) Seg Neutrophils # Seg Neutrophils # Man Lymphocytes # (Manual) Monocytes # (Manual) Eosinophils # (Manual) Nucleated RBC % Basophils # (Manual) PT INR APTT Heparin Anti-Xa Level ABG pH POC ABG pO2 ABG pO2 ABG HCO3 ABG O2 Saturation ABG Base Excess POC ABG pCO2 ABG Hemoglobin ABG Oxyhemoglobin ABG Chloride ABG Glucose Oxyhemoglobin Sodium Potassium Chloride Carbon Dioxide BUN Creatinine Glucose POC Glucose 163 H 155 H 116 H Lactic Acid Calcium Phosphorus Magnesium AST ALT Lactate Dehydrogenase Total Bilirubin Direct Bilirubin CK-MB (CK-2) C-Reactive Protein NT-Pro-B Natriuret Pep Total Protein Albumin Arterial Blood Glucose Urine WBC (Auto) Urine Creatinine 01/17/20 01/17/20 01/18/20 11:36 17:43 00:12 WBC RBC Hgb Hct MCHC RDW MCV MCH Lymph % (Auto) [place] % (Auto) [place] # Eos # Lymph # (Auto) [place] # (Auto) Eos # (Auto) Seg Neutrophils % Seg Neuts % (Manual) Baso # (Auto) Lymphocytes % (Manual) Monocytes % (Manual) Eosinophils % (Manual) Basophils % (Manual) Seg Neutrophils # Seg Neutrophils # Man Lymphocytes # (Manual) Monocytes # (Manual) Eosinophils # (Manual) Nucleated RBC % Basophils # (Manual) PT INR APTT Heparin Anti-Xa Level ABG pH POC ABG pO2 ABG pO2 ABG HCO3 ABG O2 Saturation ABG Base Excess POC ABG pCO2 ABG Hemoglobin ABG Oxyhemoglobin ABG Chloride ABG Glucose Oxyhemoglobin Sodium Potassium Chloride Carbon Dioxide BUN Creatinine Glucose POC Glucose 110 H 134 H 108 H Lactic Acid Calcium Phosphorus Magnesium AST ALT Lactate Dehydrogenase Total Bilirubin Direct Bilirubin CK-MB (CK-2) C-Reactive Protein NT-Pro-B Natriuret Pep Total Protein Albumin Arterial Blood Glucose Urine WBC (Auto) Urine Creatinine 01/18/20 01/18/20 01/18/20 05:37 06:46 06:46 WBC RBC Hgb 10.1 L Hct 32.2 L MCHC 31 L RDW 18.1 H MCV 81 L MCH 25 L Lymph % (Auto) [place] % (Auto) [place] # Eos # Lymph # (Auto) [place] # (Auto) Eos # (Auto) Seg Neutrophils % 71.9 H Seg Neuts % (Manual) Baso # (Auto) Lymphocytes % (Manual) Monocytes % (Manual) Eosinophils % (Manual) Basophils % (Manual) Seg Neutrophils # Seg Neutrophils # Man Lymphocytes # (Manual) Monocytes # (Manual) Eosinophils # (Manual) Nucleated RBC % Basophils # (Manual) PT INR APTT Heparin Anti-Xa Level ABG pH POC ABG pO2 ABG pO2 ABG HCO3 ABG O2 Saturation ABG Base Excess POC ABG pCO2 ABG Hemoglobin ABG Oxyhemoglobin ABG Chloride ABG Glucose Oxyhemoglobin Sodium Potassium Chloride Carbon Dioxide BUN Creatinine 0.7 L Glucose 155 H POC Glucose 168 H Lactic Acid Calcium Phosphorus Magnesium AST ALT Lactate Dehydrogenase Total Bilirubin Direct Bilirubin CK-MB (CK-2) C-Reactive Protein NT-Pro-B Natriuret Pep Total Protein Albumin Arterial Blood Glucose Urine WBC (Auto) Urine Creatinine 01/18/20 01/18/20 01/18/20 12:05 17:14 23:28 WBC RBC Hgb Hct MCHC RDW MCV MCH Lymph % (Auto) [place] % (Auto) [place] # Eos # Lymph # (Auto) [place] # (Auto) Eos # (Auto) Seg Neutrophils % Seg Neuts % (Manual) Baso # (Auto) Lymphocytes % (Manual) Monocytes % (Manual) Eosinophils % (Manual) Basophils % (Manual) Seg Neutrophils # Seg Neutrophils # Man Lymphocytes # (Manual) Monocytes # (Manual) Eosinophils # (Manual) Nucleated RBC % Basophils # (Manual) PT INR APTT Heparin Anti-Xa Level ABG pH POC ABG pO2 ABG pO2 ABG HCO3 ABG O2 Saturation ABG Base Excess POC ABG pCO2 ABG Hemoglobin ABG Oxyhemoglobin ABG Chloride ABG Glucose Oxyhemoglobin Sodium Potassium Chloride Carbon Dioxide BUN Creatinine Glucose POC Glucose 128 H 126 H 128 H Lactic Acid Calcium Phosphorus Magnesium AST ALT Lactate Dehydrogenase Total Bilirubin Direct Bilirubin CK-MB (CK-2) C-Reactive Protein NT-Pro-B Natriuret Pep Total Protein Albumin Arterial Blood Glucose Urine WBC (Auto) Urine Creatinine 01/19/20 01/19/20 01/19/20 05:39 12:33 17:36 WBC RBC Hgb Hct MCHC RDW MCV MCH Lymph % (Auto) [place] % (Auto) [place] # Eos # Lymph # (Auto) [place] # (Auto) Eos # (Auto) Seg Neutrophils % Seg Neuts % (Manual) Baso # (Auto) Lymphocytes % (Manual) Monocytes % (Manual) Eosinophils % (Manual) Basophils % (Manual) Seg Neutrophils # Seg Neutrophils # Man Lymphocytes # (Manual) Monocytes # (Manual) Eosinophils # (Manual) Nucleated RBC % Basophils # (Manual) PT INR APTT Heparin Anti-Xa Level ABG pH POC ABG pO2 ABG pO2 ABG HCO3 ABG O2 Saturation ABG Base Excess POC ABG pCO2 ABG Hemoglobin ABG Oxyhemoglobin ABG Chloride ABG Glucose Oxyhemoglobin Sodium Potassium Chloride Carbon Dioxide BUN Creatinine Glucose POC Glucose 164 H 171 H 152 H Lactic Acid Calcium Phosphorus Magnesium AST ALT Lactate Dehydrogenase Total Bilirubin Direct Bilirubin CK-MB (CK-2) C-Reactive Protein NT-Pro-B Natriuret Pep Total Protein Albumin Arterial Blood Glucose Urine WBC (Auto) Urine Creatinine 01/20/20 01/20/20 01/20/20 00:12 05:20 05:35 WBC RBC Hgb 9.2 L Hct 29.4 L MCHC 31 L RDW 17.9 H MCV 81 L MCH 25 L Lymph % (Auto) [place] % (Auto) [place] # Eos # Lymph # (Auto) [place] # (Auto) Eos # (Auto) Seg Neutrophils % Seg Neuts % (Manual) Baso # (Auto) Lymphocytes % (Manual) Monocytes % (Manual) Eosinophils % (Manual) Basophils % (Manual) Seg Neutrophils # Seg Neutrophils # Man Lymphocytes # (Manual) Monocytes # (Manual) Eosinophils # (Manual) Nucleated RBC % Basophils # (Manual) PT INR APTT Heparin Anti-Xa Level ABG pH POC ABG pO2 ABG pO2 ABG HCO3 ABG O2 Saturation ABG Base Excess POC ABG pCO2 ABG Hemoglobin ABG Oxyhemoglobin ABG Chloride ABG Glucose Oxyhemoglobin Sodium Potassium Chloride Carbon Dioxide BUN Creatinine Glucose POC Glucose 120 H 136 H Lactic Acid Calcium Phosphorus Magnesium AST ALT Lactate Dehydrogenase Total Bilirubin Direct Bilirubin CK-MB (CK-2) C-Reactive Protein NT-Pro-B Natriuret Pep Total Protein Albumin Arterial Blood Glucose Urine WBC (Auto) Urine Creatinine 01/20/20 01/20/20 01/20/20 05:40 11:58 14:55 WBC RBC Hgb 9.0 L Hct 28.3 L MCHC RDW MCV MCH Lymph % (Auto) [place] % (Auto) [place] # Eos # Lymph # (Auto) [place] # (Auto) Eos # (Auto) Seg Neutrophils % Seg Neuts % (Manual) Baso # (Auto) Lymphocytes % (Manual) Monocytes % (Manual) Eosinophils % (Manual) Basophils % (Manual) Seg Neutrophils # Seg Neutrophils # Man Lymphocytes # (Manual) Monocytes # (Manual) Eosinophils # (Manual) Nucleated RBC % Basophils # (Manual) PT INR APTT Heparin Anti-Xa Level ABG pH POC ABG pO2 ABG pO2 ABG HCO3 ABG O2 Saturation ABG Base Excess POC ABG pCO2 ABG Hemoglobin ABG Oxyhemoglobin ABG Chloride ABG Glucose Oxyhemoglobin Sodium Potassium Chloride Carbon Dioxide 32 H BUN 22 H Creatinine 0.7 L Glucose 128 H POC Glucose 152 H Lactic Acid Calcium Phosphorus Magnesium AST ALT Lactate Dehydrogenase Total Bilirubin Direct Bilirubin CK-MB (CK-2) C-Reactive Protein NT-Pro-B Natriuret Pep Total Protein Albumin Arterial Blood Glucose Urine WBC (Auto) Urine Creatinine 01/20/20 01/20/20 01/20/20 14:55 18:14 21:35 WBC RBC Hgb Hct MCHC RDW MCV MCH Lymph % (Auto) [place] % (Auto) [place] # Eos # Lymph # (Auto) [place] # (Auto) Eos # (Auto) Seg Neutrophils % Seg Neuts % (Manual) Baso # (Auto) Lymphocytes % (Manual) Monocytes % (Manual) Eosinophils % (Manual) Basophils % (Manual) Seg Neutrophils # Seg Neutrophils # Man Lymphocytes # (Manual) Monocytes # (Manual) Eosinophils # (Manual) Nucleated RBC % Basophils # (Manual) PT 20.4 H INR 1.72 H APTT 40.6 H Heparin Anti-Xa Level > 2.00 H ABG pH POC ABG pO2 ABG pO2 ABG HCO3 ABG O2 Saturation ABG Base Excess POC ABG pCO2 ABG Hemoglobin ABG Oxyhemoglobin ABG Chloride ABG Glucose Oxyhemoglobin Sodium Potassium Chloride Carbon Dioxide BUN Creatinine Glucose POC Glucose 150 H Lactic Acid Calcium Phosphorus Magnesium AST ALT Lactate Dehydrogenase Total Bilirubin Direct Bilirubin CK-MB (CK-2) C-Reactive Protein NT-Pro-B Natriuret Pep Total Protein Albumin Arterial Blood Glucose Urine WBC (Auto) Urine Creatinine 01/21/20 01/21/20 01/21/20 00:30 05:47 05:59 WBC RBC Hgb Hct MCHC RDW MCV MCH Lymph % (Auto) [place] % (Auto) [place] # Eos # Lymph # (Auto) [place] # (Auto) Eos # (Auto) Seg Neutrophils % Seg Neuts % (Manual) Baso # (Auto) Lymphocytes % (Manual) Monocytes % (Manual) Eosinophils % (Manual) Basophils % (Manual) Seg Neutrophils # Seg Neutrophils # Man Lymphocytes # (Manual) Monocytes # (Manual) Eosinophils # (Manual) Nucleated RBC % Basophils # (Manual) PT INR APTT Heparin Anti-Xa Level 1.93 H ABG pH POC ABG pO2 ABG pO2 ABG HCO3 ABG O2 Saturation ABG Base Excess POC ABG pCO2 ABG Hemoglobin ABG Oxyhemoglobin ABG Chloride ABG Glucose Oxyhemoglobin Sodium Potassium Chloride Carbon Dioxide BUN Creatinine Glucose POC Glucose 126 H 148 H Lactic Acid Calcium Phosphorus Magnesium AST ALT Lactate Dehydrogenase Total Bilirubin Direct Bilirubin CK-MB (CK-2) C-Reactive Protein NT-Pro-B Natriuret Pep Total Protein Albumin Arterial Blood Glucose Urine WBC (Auto) Urine Creatinine 01/21/20 01/21/20 01/21/20 12:32 18:20 23:54 WBC RBC Hgb Hct MCHC RDW MCV MCH Lymph % (Auto) [place] % (Auto) [place] # Eos # Lymph # (Auto) [place] # (Auto) Eos # (Auto) Seg Neutrophils % Seg Neuts % (Manual) Baso # (Auto) Lymphocytes % (Manual) Monocytes % (Manual) Eosinophils % (Manual) Basophils % (Manual) Seg Neutrophils # Seg Neutrophils # Man Lymphocytes # (Manual) Monocytes # (Manual) Eosinophils # (Manual) Nucleated RBC % Basophils # (Manual) PT INR APTT Heparin Anti-Xa Level 1.28 H ABG pH POC ABG pO2 ABG pO2 ABG HCO3 ABG O2 Saturation ABG Base Excess POC ABG pCO2 ABG Hemoglobin ABG Oxyhemoglobin ABG Chloride ABG Glucose Oxyhemoglobin Sodium Potassium Chloride Carbon Dioxide BUN Creatinine Glucose POC Glucose 112 H 146 H Lactic Acid Calcium Phosphorus Magnesium AST ALT Lactate Dehydrogenase Total Bilirubin Direct Bilirubin CK-MB (CK-2) C-Reactive Protein NT-Pro-B Natriuret Pep Total Protein Albumin Arterial Blood Glucose Urine WBC (Auto) Urine Creatinine 01/22/20 01/22/2020 04:45 04:45 05:48 WBC RBC Hgb 9.3 L Hct 29.0 L MCHC RDW MCV MCH Lymph % (Auto) [place] % (Auto) [place] # Eos # Lymph # (Auto) [place] # (Auto) Eos # (Auto) Seg Neutrophils % Seg Neuts % (Manual) Baso # (Auto) Lymphocytes % (Manual) Monocytes % (Manual) Eosinophils % (Manual) Basophils % (Manual) Seg Neutrophils # Seg Neutrophils # Man Lymphocytes # (Manual) Monocytes # (Manual) Eosinophils # (Manual) Nucleated RBC % Basophils # (Manual) PT INR APTT Heparin Anti-Xa Level 1.34 H ABG pH POC ABG pO2 ABG pO2 ABG HCO3 ABG O2 Saturation ABG Base Excess POC ABG pCO2 ABG Hemoglobin ABG Oxyhemoglobin ABG Chloride ABG Glucose Oxyhemoglobin Sodium Potassium Chloride Carbon Dioxide BUN Creatinine Glucose POC Glucose 142 H Lactic Acid Calcium Phosphorus Magnesium AST ALT Lactate Dehydrogenase Total Bilirubin Direct Bilirubin CK-MB (CK-2) C-Reactive Protein NT-Pro-B Natriuret Pep Total Protein Albumin Arterial Blood Glucose Urine WBC (Auto) Urine Creatinine 01/22/20 01/22/20 01/22/20 08:09 08:22 09:58 WBC RBC Hgb Hct MCHC RDW MCV MCH Lymph % (Auto) [place] % (Auto) [place] # Eos # Lymph # (Auto) [place] # (Auto) Eos # (Auto) Seg Neutrophils % Seg Neuts % (Manual) Baso # (Auto) Lymphocytes % (Manual) Monocytes % (Manual) Eosinophils % (Manual) Basophils % (Manual) Seg Neutrophils # Seg Neutrophils # Man Lymphocytes # (Manual) Monocytes # (Manual) Eosinophils # (Manual) Nucleated RBC % Basophils # (Manual) PT 16.9 H INR 1.34 H APTT Heparin Anti-Xa Level ABG pH POC ABG pO2 ABG pO2 ABG HCO3 ABG O2 Saturation ABG Base Excess POC ABG pCO2 ABG Hemoglobin ABG Oxyhemoglobin ABG Chloride ABG Glucose Oxyhemoglobin Sodium Potassium Chloride 97.8 L Carbon Dioxide BUN 29 H Creatinine Glucose 128 H POC Glucose 131 H Lactic Acid Calcium Phosphorus Magnesium AST ALT Lactate Dehydrogenase Total Bilirubin Direct Bilirubin CK-MB (CK-2) C-Reactive Protein NT-Pro-B Natriuret Pep Total Protein Albumin Arterial Blood Glucose Urine WBC (Auto) Urine Creatinine 01/22/20 01/22/20 01/22/20 12:44 16:13 18:18 WBC RBC Hgb Hct MCHC RDW MCV MCH Lymph % (Auto) [place] % (Auto) [place] # Eos # Lymph # (Auto) [place] # (Auto) Eos # (Auto) Seg Neutrophils % Seg Neuts % (Manual) Baso # (Auto) Lymphocytes % (Manual) Monocytes % (Manual) Eosinophils % (Manual) Basophils % (Manual) Seg Neutrophils # Seg Neutrophils # Man Lymphocytes # (Manual) Monocytes # (Manual) Eosinophils # (Manual) Nucleated RBC % Basophils # (Manual) PT INR APTT Heparin Anti-Xa Level ABG pH POC ABG pO2 ABG pO2 ABG HCO3 ABG O2 Saturation ABG Base Excess POC ABG pCO2 ABG Hemoglobin ABG Oxyhemoglobin ABG Chloride ABG Glucose Oxyhemoglobin Sodium Potassium Chloride Carbon Dioxide BUN Creatinine Glucose POC Glucose 156 H 133 H 155 H Lactic Acid Calcium Phosphorus Magnesium AST ALT Lactate Dehydrogenase Total Bilirubin Direct Bilirubin CK-MB (CK-2) C-Reactive Protein NT-Pro-B Natriuret Pep Total Protein Albumin Arterial Blood Glucose Urine WBC (Auto) Urine Creatinine 01/22/20 01/23/20 01/23/20 23:22 05:37 12:59 WBC RBC Hgb Hct MCHC RDW MCV MCH Lymph % (Auto) [place] % (Auto) [place] # Eos # Lymph # (Auto) [place] # (Auto) Eos # (Auto) Seg Neutrophils % Seg Neuts % (Manual) Baso # (Auto) Lymphocytes % (Manual) Monocytes % (Manual) Eosinophils % (Manual) Basophils % (Manual) Seg Neutrophils # Seg Neutrophils # Man Lymphocytes # (Manual) Monocytes # (Manual) Eosinophils # (Manual) Nucleated RBC % Basophils # (Manual) PT INR APTT Heparin Anti-Xa Level ABG pH POC ABG pO2 ABG pO2 ABG HCO3 ABG O2 Saturation ABG Base Excess POC ABG pCO2 ABG Hemoglobin ABG Oxyhemoglobin ABG Chloride ABG Glucose Oxyhemoglobin Sodium Potassium Chloride Carbon Dioxide BUN Creatinine Glucose POC Glucose 148 H 163 H 175 H Lactic Acid Calcium Phosphorus Magnesium AST ALT Lactate Dehydrogenase Total Bilirubin Direct Bilirubin CK-MB (CK-2) C-Reactive Protein NT-Pro-B Natriuret Pep Total Protein Albumin Arterial Blood Glucose Urine WBC (Auto) Urine Creatinine 01/23/20 01/23/20 01/24/20 17:28 23:56 04:30 WBC RBC 3.46 L Hgb 8.8 L Hct 27.8 L MCHC RDW 18.2 H MCV 81 L MCH 25 L Lymph % (Auto) [place] % (Auto) 7.8 H [place] # Eos # Lymph # (Auto) [place] # (Auto) Eos # (Auto) Seg Neutrophils % Seg Neuts % (Manual) Baso # (Auto) Lymphocytes % (Manual) Monocytes % (Manual) Eosinophils % (Manual) Basophils % (Manual) Seg Neutrophils # Seg Neutrophils # Man Lymphocytes # (Manual) Monocytes # (Manual) Eosinophils # (Manual) Nucleated RBC % Basophils # (Manual) PT INR APTT Heparin Anti-Xa Level ABG pH POC ABG pO2 ABG pO2 ABG HCO3 ABG O2 Saturation ABG Base Excess POC ABG pCO2 ABG Hemoglobin ABG Oxyhemoglobin ABG Chloride ABG Glucose Oxyhemoglobin Sodium Potassium Chloride Carbon Dioxide BUN Creatinine Glucose POC Glucose 165 H 177 H Lactic Acid Calcium Phosphorus Magnesium AST ALT Lactate Dehydrogenase Total Bilirubin Direct Bilirubin CK-MB (CK-2) C-Reactive Protein NT-Pro-B Natriuret Pep Total Protein Albumin Arterial Blood Glucose Urine WBC (Auto) Urine Creatinine 01/24/20 01/24/20 01/24/20 04:30 07:18 12:06 WBC RBC Hgb Hct MCHC RDW MCV MCH Lymph % (Auto) [place] % (Auto) [place] # Eos # Lymph # (Auto) [place] # (Auto) Eos # (Auto) Seg Neutrophils % Seg Neuts % (Manual) Baso # (Auto) Lymphocytes % (Manual) Monocytes % (Manual) Eosinophils % (Manual) Basophils % (Manual) Seg Neutrophils # Seg Neutrophils # Man Lymphocytes # (Manual) Monocytes # (Manual) Eosinophils # (Manual) Nucleated RBC % Basophils # (Manual) PT INR APTT Heparin Anti-Xa Level ABG pH POC ABG pO2 ABG pO2 ABG HCO3 ABG O2 Saturation ABG Base Excess POC ABG pCO2 ABG Hemoglobin ABG Oxyhemoglobin ABG Chloride ABG Glucose Oxyhemoglobin Sodium Potassium Chloride 97.9 L Carbon Dioxide BUN 31 H Creatinine Glucose 146 H POC Glucose 151 H 133 H Lactic Acid Calcium Phosphorus Magnesium AST ALT Lactate Dehydrogenase Total Bilirubin Direct Bilirubin CK-MB (CK-2) C-Reactive Protein NT-Pro-B Natriuret Pep Total Protein Albumin Arterial Blood Glucose Urine WBC (Auto) Urine Creatinine 01/24/20 01/25/20 01/25/20 17:36 00:08 04:25 WBC RBC 3.50 L Hgb 8.7 L Hct 27.9 L MCHC 31 L RDW 18.2 H MCV 80 L MCH 25 L Lymph % (Auto) [place] % (Auto) 8.5 H [place] # Eos # Lymph # (Auto) [place] # (Auto) Eos # (Auto) Seg Neutrophils % Seg Neuts % (Manual) Baso # (Auto) Lymphocytes % (Manual) Monocytes % (Manual) Eosinophils % (Manual) Basophils % (Manual) Seg Neutrophils # Seg Neutrophils # Man Lymphocytes # (Manual) Monocytes # (Manual) Eosinophils # (Manual) Nucleated RBC % Basophils # (Manual) PT INR APTT Heparin Anti-Xa Level ABG pH POC ABG pO2 ABG pO2 ABG HCO3 ABG O2 Saturation ABG Base Excess POC ABG pCO2 ABG Hemoglobin ABG Oxyhemoglobin ABG Chloride ABG Glucose Oxyhemoglobin Sodium Potassium Chloride Carbon Dioxide BUN Creatinine Glucose POC Glucose 133 H 129 H Lactic Acid Calcium Phosphorus Magnesium AST ALT Lactate Dehydrogenase Total Bilirubin Direct Bilirubin CK-MB (CK-2) C-Reactive Protein NT-Pro-B Natriuret Pep Total Protein Albumin Arterial Blood Glucose Urine WBC (Auto) Urine Creatinine 01/25/20 01/25/20 01/25/20 04:25 05:38 11:52 WBC RBC Hgb Hct MCHC RDW MCV MCH Lymph % (Auto) [place] % (Auto) [place] # Eos # Lymph # (Auto) [place] # (Auto) Eos # (Auto) Seg Neutrophils % Seg Neuts % (Manual) Baso # (Auto) Lymphocytes % (Manual) Monocytes % (Manual) Eosinophils % (Manual) Basophils % (Manual) Seg Neutrophils # Seg Neutrophils # Man Lymphocytes # (Manual) Monocytes # (Manual) Eosinophils # (Manual) Nucleated RBC % Basophils # (Manual) PT INR APTT Heparin Anti-Xa Level ABG pH POC ABG pO2 ABG pO2 ABG HCO3 ABG O2 Saturation ABG Base Excess POC ABG pCO2 ABG Hemoglobin ABG Oxyhemoglobin ABG Chloride ABG Glucose Oxyhemoglobin Sodium Potassium Chloride Carbon Dioxide BUN 30 H Creatinine Glucose 134 H POC Glucose 129 H 134 H Lactic Acid Calcium Phosphorus Magnesium AST ALT Lactate Dehydrogenase Total Bilirubin Direct Bilirubin CK-MB (CK-2) C-Reactive Protein NT-Pro-B Natriuret Pep Total Protein Albumin Arterial Blood Glucose Urine WBC (Auto) Urine Creatinine 01/25/20 01/25/20 01/26/20 17:13 21:02 00:59 WBC RBC Hgb Hct MCHC RDW MCV MCH Lymph % (Auto) [place] % (Auto) [place] # Eos # Lymph # (Auto) [place] # (Auto) Eos # (Auto) Seg Neutrophils % Seg Neuts % (Manual) Baso # (Auto) Lymphocytes % (Manual) Monocytes % (Manual) Eosinophils % (Manual) Basophils % (Manual) Seg Neutrophils # Seg Neutrophils # Man Lymphocytes # (Manual) Monocytes # (Manual) Eosinophils # (Manual) Nucleated RBC % Basophils # (Manual) PT INR APTT Heparin Anti-Xa Level ABG pH POC ABG pO2 ABG pO2 57.5 L ABG HCO3 31.7 H ABG O2 Saturation 90.3 L ABG Base Excess 6.6 H POC ABG pCO2 ABG Hemoglobin 13.0 L ABG Oxyhemoglobin ABG Chloride ABG Glucose Oxyhemoglobin 87.5 L Sodium Potassium Chloride Carbon Dioxide BUN Creatinine Glucose POC Glucose 124 H 196 H Lactic Acid Calcium Phosphorus Magnesium AST ALT Lactate Dehydrogenase Total Bilirubin Direct Bilirubin CK-MB (CK-2) C-Reactive Protein NT-Pro-B Natriuret Pep Total Protein Albumin Arterial Blood Glucose Urine WBC (Auto) Urine Creatinine 01/26/20 01/26/20 01/26/20 03:20 05:46 12:46 WBC RBC Hgb 9.2 L Hct 29.4 L MCHC RDW MCV MCH Lymph % (Auto) [place] % (Auto) [place] # Eos # Lymph # (Auto) [place] # (Auto) Eos # (Auto) Seg Neutrophils % Seg Neuts % (Manual) Baso # (Auto) Lymphocytes % (Manual) Monocytes % (Manual) Eosinophils % (Manual) Basophils % (Manual) Seg Neutrophils # Seg Neutrophils # Man Lymphocytes # (Manual) Monocytes # (Manual) Eosinophils # (Manual) Nucleated RBC % Basophils # (Manual) PT INR APTT Heparin Anti-Xa Level ABG pH POC ABG pO2 ABG pO2 ABG HCO3 ABG O2 Saturation ABG Base Excess POC ABG pCO2 ABG Hemoglobin ABG Oxyhemoglobin ABG Chloride ABG Glucose Oxyhemoglobin Sodium Potassium Chloride Carbon Dioxide BUN Creatinine Glucose POC Glucose 141 H 122 H Lactic Acid Calcium Phosphorus Magnesium AST ALT Lactate Dehydrogenase Total Bilirubin Direct Bilirubin CK-MB (CK-2) C-Reactive Protein NT-Pro-B Natriuret Pep Total Protein Albumin Arterial Blood Glucose Urine WBC (Auto) Urine Creatinine 01/26/20 01/26/20 01/27/20 18:03 23:55 04:47 WBC RBC Hgb Hct MCHC RDW MCV MCH Lymph % (Auto) [place] % (Auto) [place] # Eos # Lymph # (Auto) [place] # (Auto) Eos # (Auto) Seg Neutrophils % Seg Neuts % (Manual) Baso # (Auto) Lymphocytes % (Manual) Monocytes % (Manual) Eosinophils % (Manual) Basophils % (Manual) Seg Neutrophils # Seg Neutrophils # Man Lymphocytes # (Manual) Monocytes # (Manual) Eosinophils # (Manual) Nucleated RBC % Basophils # (Manual) PT INR APTT Heparin Anti-Xa Level ABG pH POC ABG pO2 ABG pO2 ABG HCO3 ABG O2 Saturation ABG Base Excess POC ABG pCO2 ABG Hemoglobin ABG Oxyhemoglobin ABG Chloride ABG Glucose Oxyhemoglobin Sodium Potassium Chloride Carbon Dioxide BUN 30 H Creatinine 0.7 L Glucose 135 H POC Glucose 142 H 159 H Lactic Acid Calcium Phosphorus Magnesium AST ALT Lactate Dehydrogenase Total Bilirubin Direct Bilirubin CK-MB (CK-2) C-Reactive Protein NT-Pro-B Natriuret Pep Total Protein Albumin Arterial Blood Glucose Urine WBC (Auto) Urine Creatinine 01/27/20 01/27/20 01/27/20 05:43 12:06 17:16 WBC RBC Hgb Hct MCHC RDW MCV MCH Lymph % (Auto) [place] % (Auto) [place] # Eos # Lymph # (Auto) [place] # (Auto) Eos # (Auto) Seg Neutrophils % Seg Neuts % (Manual) Baso # (Auto) Lymphocytes % (Manual) Monocytes % (Manual) Eosinophils % (Manual) Basophils % (Manual) Seg Neutrophils # Seg Neutrophils # Man Lymphocytes # (Manual) Monocytes # (Manual) Eosinophils # (Manual) Nucleated RBC % Basophils # (Manual) PT INR APTT Heparin Anti-Xa Level ABG pH POC ABG pO2 ABG pO2 ABG HCO3 ABG O2 Saturation ABG Base Excess POC ABG pCO2 ABG Hemoglobin ABG Oxyhemoglobin ABG Chloride ABG Glucose Oxyhemoglobin Sodium Potassium Chloride Carbon Dioxide BUN Creatinine Glucose POC Glucose 143 H 142 H 128 H Lactic Acid Calcium Phosphorus Magnesium AST ALT Lactate Dehydrogenase Total Bilirubin Direct Bilirubin CK-MB (CK-2) C-Reactive Protein NT-Pro-B Natriuret Pep Total Protein Albumin Arterial Blood Glucose Urine WBC (Auto) Urine Creatinine 01/27/20 01/28/20 01/28/20 23:55 04:37 05:55 WBC RBC Hgb 9.4 L Hct 29.9 L MCHC RDW MCV MCH Lymph % (Auto) [place] % (Auto) [place] # Eos # Lymph # (Auto) [place] # (Auto) Eos # (Auto) Seg Neutrophils % Seg Neuts % (Manual) Baso # (Auto) Lymphocytes % (Manual) Monocytes % (Manual) Eosinophils % (Manual) Basophils % (Manual) Seg Neutrophils # Seg Neutrophils # Man Lymphocytes # (Manual) Monocytes # (Manual) Eosinophils # (Manual) Nucleated RBC % Basophils # (Manual) PT INR APTT Heparin Anti-Xa Level ABG pH POC ABG pO2 ABG pO2 ABG HCO3 ABG O2 Saturation ABG Base Excess POC ABG pCO2 ABG Hemoglobin ABG Oxyhemoglobin ABG Chloride ABG Glucose Oxyhemoglobin Sodium Potassium Chloride Carbon Dioxide BUN Creatinine Glucose POC Glucose 166 H 169 H Lactic Acid Calcium Phosphorus Magnesium AST ALT Lactate Dehydrogenase Total Bilirubin Direct Bilirubin CK-MB (CK-2) C-Reactive Protein NT-Pro-B Natriuret Pep Total Protein Albumin Arterial Blood Glucose Urine WBC (Auto) Urine Creatinine 01/28/20 01/28/20 01/28/20 11:58 17:26 23:46 WBC RBC Hgb Hct MCHC RDW MCV MCH Lymph % (Auto) [place] % (Auto) [place] # Eos # Lymph # (Auto) [place] # (Auto) Eos # (Auto) Seg Neutrophils % Seg Neuts % (Manual) Baso # (Auto) Lymphocytes % (Manual) Monocytes % (Manual) Eosinophils % (Manual) Basophils % (Manual) Seg Neutrophils # Seg Neutrophils # Man Lymphocytes # (Manual) Monocytes # (Manual) Eosinophils # (Manual) Nucleated RBC % Basophils # (Manual) PT INR APTT Heparin Anti-Xa Level ABG pH POC ABG pO2 ABG pO2 ABG HCO3 ABG O2 Saturation ABG Base Excess POC ABG pCO2 ABG Hemoglobin ABG Oxyhemoglobin ABG Chloride ABG Glucose Oxyhemoglobin Sodium Potassium Chloride Carbon Dioxide BUN Creatinine Glucose POC Glucose 130 H 126 H 150 H Lactic Acid Calcium Phosphorus Magnesium AST ALT Lactate Dehydrogenase Total Bilirubin Direct Bilirubin CK-MB (CK-2) C-Reactive Protein NT-Pro-B Natriuret Pep Total Protein Albumin Arterial Blood Glucose Urine WBC (Auto) Urine Creatinine 01/29/20 01/29/20 01/29/20 04:55 06:00 12:28 WBC RBC Hgb Hct MCHC RDW MCV MCH Lymph % (Auto) [place] % (Auto) [place] # Eos # Lymph # (Auto) [place] # (Auto) Eos # (Auto) Seg Neutrophils % Seg Neuts % (Manual) Baso # (Auto) Lymphocytes % (Manual) Monocytes % (Manual) Eosinophils % (Manual) Basophils % (Manual) Seg Neutrophils # Seg Neutrophils # Man Lymphocytes # (Manual) Monocytes # (Manual) Eosinophils # (Manual) Nucleated RBC % Basophils # (Manual) PT INR APTT Heparin Anti-Xa Level ABG pH POC ABG pO2 ABG pO2 ABG HCO3 ABG O2 Saturation ABG Base Excess POC ABG pCO2 ABG Hemoglobin ABG Oxyhemoglobin ABG Chloride ABG Glucose Oxyhemoglobin Sodium Potassium Chloride Carbon Dioxide 34 H BUN Creatinine 0.6 L Glucose 152 H POC Glucose 157 H 156 H Lactic Acid Calcium Phosphorus Magnesium AST ALT Lactate Dehydrogenase Total Bilirubin Direct Bilirubin CK-MB (CK-2) C-Reactive Protein NT-Pro-B Natriuret Pep Total Protein Albumin Arterial Blood Glucose Urine WBC (Auto) Urine Creatinine 01/29/20 01/30/20 01/30/20 19:06 00:29 05:39 WBC RBC Hgb Hct MCHC RDW MCV MCH Lymph % (Auto) [place] % (Auto) [place] # Eos # Lymph # (Auto) [place] # (Auto) Eos # (Auto) Seg Neutrophils % Seg Neuts % (Manual) Baso # (Auto) Lymphocytes % (Manual) Monocytes % (Manual) Eosinophils % (Manual) Basophils % (Manual) Seg Neutrophils # Seg Neutrophils # Man Lymphocytes # (Manual) Monocytes # (Manual) Eosinophils # (Manual) Nucleated RBC % Basophils # (Manual) PT INR APTT Heparin Anti-Xa Level ABG pH POC ABG pO2 ABG pO2 ABG HCO3 ABG O2 Saturation ABG Base Excess POC ABG pCO2 ABG Hemoglobin ABG Oxyhemoglobin ABG Chloride ABG Glucose Oxyhemoglobin Sodium Potassium Chloride Carbon Dioxide BUN Creatinine Glucose POC Glucose 152 H 132 H 159 H Lactic Acid Calcium Phosphorus Magnesium AST ALT Lactate Dehydrogenase Total Bilirubin Direct Bilirubin CK-MB (CK-2) C-Reactive Protein NT-Pro-B Natriuret Pep Total Protein Albumin Arterial Blood Glucose Urine WBC (Auto) Urine Creatinine 01/30/20 01/30/20 01/30/20 12:27 17:42 23:28 WBC RBC Hgb Hct MCHC RDW MCV MCH Lymph % (Auto) [place] % (Auto) [place] # Eos # Lymph # (Auto) [place] # (Auto) Eos # (Auto) Seg Neutrophils % Seg Neuts % (Manual) Baso # (Auto) Lymphocytes % (Manual) Monocytes % (Manual) Eosinophils % (Manual) Basophils % (Manual) Seg Neutrophils # Seg Neutrophils # Man Lymphocytes # (Manual) Monocytes # (Manual) Eosinophils # (Manual) Nucleated RBC % Basophils # (Manual) PT INR APTT Heparin Anti-Xa Level ABG pH POC ABG pO2 ABG pO2 ABG HCO3 ABG O2 Saturation ABG Base Excess POC ABG pCO2 ABG Hemoglobin ABG Oxyhemoglobin ABG Chloride ABG Glucose Oxyhemoglobin Sodium Potassium Chloride Carbon Dioxide BUN Creatinine Glucose POC Glucose 151 H 144 H 164 H Lactic Acid Calcium Phosphorus Magnesium AST ALT Lactate Dehydrogenase Total Bilirubin Direct Bilirubin CK-MB (CK-2) C-Reactive Protein NT-Pro-B Natriuret Pep Total Protein Albumin Arterial Blood Glucose Urine WBC (Auto) Urine Creatinine 01/31/20 01/31/20 01/31/20 05:51 11:51 18:06 WBC RBC Hgb Hct MCHC RDW MCV MCH Lymph % (Auto) [place] % (Auto) [place] # Eos # Lymph # (Auto) [place] # (Auto) Eos # (Auto) Seg Neutrophils % Seg Neuts % (Manual) Baso # (Auto) Lymphocytes % (Manual) Monocytes % (Manual) Eosinophils % (Manual) Basophils % (Manual) Seg Neutrophils # Seg Neutrophils # Man Lymphocytes # (Manual) Monocytes # (Manual) Eosinophils # (Manual) Nucleated RBC % Basophils # (Manual) PT INR APTT Heparin Anti-Xa Level ABG pH POC ABG pO2 ABG pO2 ABG HCO3 ABG O2 Saturation ABG Base Excess POC ABG pCO2 ABG Hemoglobin ABG Oxyhemoglobin ABG Chloride ABG Glucose Oxyhemoglobin Sodium Potassium Chloride Carbon Dioxide BUN Creatinine Glucose POC Glucose 131 H 167 H 210 H Lactic Acid Calcium Phosphorus Magnesium AST ALT Lactate Dehydrogenase Total Bilirubin Direct Bilirubin CK-MB (CK-2) C-Reactive Protein NT-Pro-B Natriuret Pep Total Protein Albumin Arterial Blood Glucose Urine WBC (Auto) Urine Creatinine 01/31/20 01/31/20 02/01/20 19:24 Unknown 00:34 WBC RBC Hgb Hct MCHC RDW MCV MCH Lymph % (Auto) [place] % (Auto) [place] # Eos # Lymph # (Auto) [place] # (Auto) Eos # (Auto) Seg Neutrophils % Seg Neuts % (Manual) Baso # (Auto) Lymphocytes % (Manual) Monocytes % (Manual) Eosinophils % (Manual) Basophils % (Manual) Seg Neutrophils # Seg Neutrophils # Man Lymphocytes # (Manual) Monocytes # (Manual) Eosinophils # (Manual) Nucleated RBC % Basophils # (Manual) PT INR APTT Heparin Anti-Xa Level ABG pH POC ABG pO2 ABG pO2 ABG HCO3 ABG O2 Saturation ABG Base Excess POC ABG pCO2 ABG Hemoglobin ABG Oxyhemoglobin ABG Chloride ABG Glucose Oxyhemoglobin Sodium Potassium Chloride 95.3 L Carbon Dioxide 33 H BUN 36 H Creatinine Glucose 187 H POC Glucose 116 H Lactic Acid Calcium Phosphorus Magnesium AST ALT Lactate Dehydrogenase Total Bilirubin Direct Bilirubin CK-MB (CK-2) C-Reactive Protein NT-Pro-B Natriuret Pep Total Protein Albumin Arterial Blood Glucose Urine WBC (Auto) Urine Creatinine 57.4 H 02/01/20 02/01/20 02/01/20 05:24 10:40 12:29 WBC RBC Hgb Hct MCHC RDW MCV MCH Lymph % (Auto) [place] % (Auto) [place] # Eos # Lymph # (Auto) [place] # (Auto) Eos # (Auto) Seg Neutrophils % Seg Neuts % (Manual) Baso # (Auto) Lymphocytes % (Manual) Monocytes % (Manual) Eosinophils % (Manual) Basophils % (Manual) Seg Neutrophils # Seg Neutrophils # Man Lymphocytes # (Manual) Monocytes # (Manual) Eosinophils # (Manual) Nucleated RBC % Basophils # (Manual) PT INR APTT Heparin Anti-Xa Level ABG pH POC ABG pO2 ABG pO2 ABG HCO3 ABG O2 Saturation ABG Base Excess POC ABG pCO2 ABG Hemoglobin ABG Oxyhemoglobin ABG Chloride ABG Glucose Oxyhemoglobin Sodium Potassium Chloride Carbon Dioxide BUN Creatinine Glucose POC Glucose 142 H 165 H 151 H Lactic Acid Calcium Phosphorus Magnesium AST ALT Lactate Dehydrogenase Total Bilirubin Direct Bilirubin CK-MB (CK-2) C-Reactive Protein NT-Pro-B Natriuret Pep Total Protein Albumin Arterial Blood Glucose Urine WBC (Auto) Urine Creatinine 02/01/20 02/01/20 02/02/20 17:16 23:23 06:36 WBC RBC Hgb Hct MCHC RDW MCV MCH Lymph % (Auto) [place] % (Auto) [place] # Eos # Lymph # (Auto) [place] # (Auto) Eos # (Auto) Seg Neutrophils % Seg Neuts % (Manual) Baso # (Auto) Lymphocytes % (Manual) Monocytes % (Manual) Eosinophils % (Manual) Basophils % (Manual) Seg Neutrophils # Seg Neutrophils # Man Lymphocytes # (Manual) Monocytes # (Manual) Eosinophils # (Manual) Nucleated RBC % Basophils # (Manual) PT INR APTT Heparin Anti-Xa Level ABG pH POC ABG pO2 ABG pO2 ABG HCO3 ABG O2 Saturation ABG Base Excess POC ABG pCO2 ABG Hemoglobin ABG Oxyhemoglobin ABG Chloride ABG Glucose Oxyhemoglobin Sodium Potassium Chloride Carbon Dioxide BUN Creatinine Glucose POC Glucose 137 H 145 H 181 H Lactic Acid Calcium Phosphorus Magnesium AST ALT Lactate Dehydrogenase Total Bilirubin Direct Bilirubin CK-MB (CK-2) C-Reactive Protein NT-Pro-B Natriuret Pep Total Protein Albumin Arterial Blood Glucose Urine WBC (Auto) Urine Creatinine 02/02/20 02/02/20 02/02/20 10:01 12:05 17:54 WBC RBC Hgb Hct MCHC RDW MCV MCH Lymph % (Auto) [place] % (Auto) [place] # Eos # Lymph # (Auto) [place] # (Auto) Eos # (Auto) Seg Neutrophils % Seg Neuts % (Manual) Baso # (Auto) Lymphocytes % (Manual) Monocytes % (Manual) Eosinophils % (Manual) Basophils % (Manual) Seg Neutrophils # Seg Neutrophils # Man Lymphocytes # (Manual) Monocytes # (Manual) Eosinophils # (Manual) Nucleated RBC % Basophils # (Manual) PT INR APTT Heparin Anti-Xa Level ABG pH POC ABG pO2 ABG pO2 ABG HCO3 ABG O2 Saturation ABG Base Excess POC ABG pCO2 ABG Hemoglobin ABG Oxyhemoglobin ABG Chloride ABG Glucose Oxyhemoglobin Sodium Potassium Chloride 95.3 L Carbon Dioxide BUN 44 H Creatinine Glucose 234 H POC Glucose 184 H 127 H Lactic Acid Calcium Phosphorus Magnesium AST 363 H ALT 457 H Lactate Dehydrogenase Total Bilirubin Direct Bilirubin CK-MB (CK-2) C-Reactive Protein NT-Pro-B Natriuret Pep Total Protein Albumin 3.0 L Arterial Blood Glucose Urine WBC (Auto) Urine Creatinine 02/02/20 02/03/20 02/03/20 23:47 05:32 07:04 WBC 13.0 H RBC Hgb 9.5 L Hct 30.8 L MCHC 31 L RDW 19.6 H MCV 81 L MCH 25 L Lymph % (Auto) [place] % (Auto) 9.4 H [place] # Eos # Lymph # (Auto) [place] # (Auto) 1.2 H Eos # (Auto) Seg Neutrophils % 72.3 H Seg Neuts % (Manual) Baso # (Auto) Lymphocytes % (Manual) Monocytes % (Manual) Eosinophils % (Manual) Basophils % (Manual) Seg Neutrophils # 9.4 H Seg Neutrophils # Man Lymphocytes # (Manual) Monocytes # (Manual) Eosinophils # (Manual) Nucleated RBC % Basophils # (Manual) PT INR APTT Heparin Anti-Xa Level ABG pH POC ABG pO2 ABG pO2 ABG HCO3 ABG O2 Saturation ABG Base Excess POC ABG pCO2 ABG Hemoglobin ABG Oxyhemoglobin ABG Chloride ABG Glucose Oxyhemoglobin Sodium Potassium Chloride Carbon Dioxide BUN Creatinine Glucose POC Glucose 124 H 129 H Lactic Acid Calcium Phosphorus Magnesium AST ALT Lactate Dehydrogenase Total Bilirubin Direct Bilirubin CK-MB (CK-2) C-Reactive Protein NT-Pro-B Natriuret Pep Total Protein Albumin Arterial Blood Glucose Urine WBC (Auto) Urine Creatinine 02/03/20 02/03/20 02/03/20 07:04 11:32 12:49 WBC RBC Hgb Hct MCHC RDW MCV MCH Lymph % (Auto) [place] % (Auto) [place] # Eos # Lymph # (Auto) [place] # (Auto) Eos # (Auto) Seg Neutrophils % Seg Neuts % (Manual) Baso # (Auto) Lymphocytes % (Manual) Monocytes % (Manual) Eosinophils % (Manual) Basophils % (Manual) Seg Neutrophils # Seg Neutrophils # Man Lymphocytes # (Manual) Monocytes # (Manual) Eosinophils # (Manual) Nucleated RBC % Basophils # (Manual) PT INR APTT Heparin Anti-Xa Level ABG pH POC ABG pO2 ABG pO2 ABG HCO3 ABG O2 Saturation ABG Base Excess POC ABG pCO2 ABG Hemoglobin ABG Oxyhemoglobin ABG Chloride ABG Glucose Oxyhemoglobin Sodium Potassium Chloride 97.9 L Carbon Dioxide 33 H BUN 39 H Creatinine Glucose 119 H POC Glucose 138 H Lactic Acid Calcium Phosphorus Magnesium 2.60 H AST ALT Lactate Dehydrogenase Total Bilirubin Direct Bilirubin CK-MB (CK-2) C-Reactive Protein NT-Pro-B Natriuret Pep Total Protein Albumin Arterial Blood Glucose Urine WBC (Auto) Urine Creatinine 02/03/20 02/04/20 02/04/20 18:28 16:24 16:24 WBC RBC 3.38 L Hgb 8.6 L Hct 26.9 L MCHC RDW 19.5 H MCV 80 L MCH 26 L Lymph % (Auto) [place] % (Auto) [place] # Eos # Lymph # (Auto) [place] # (Auto) Eos # (Auto) Seg Neutrophils % Seg Neuts % (Manual) Baso # (Auto) Lymphocytes % (Manual) Monocytes % (Manual) Eosinophils % (Manual) Basophils % (Manual) Seg Neutrophils # Seg Neutrophils # Man Lymphocytes # (Manual) Monocytes # (Manual) Eosinophils # (Manual) Nucleated RBC % Basophils # (Manual) PT INR APTT Heparin Anti-Xa Level ABG pH POC ABG pO2 ABG pO2 ABG HCO3 ABG O2 Saturation ABG Base Excess POC ABG pCO2 ABG Hemoglobin ABG Oxyhemoglobin ABG Chloride ABG Glucose Oxyhemoglobin Sodium Potassium 3.4 L Chloride Carbon Dioxide 31 H BUN 37 H Creatinine Glucose 70 L POC Glucose 118 H Lactic Acid Calcium Phosphorus Magnesium AST 169 H ALT 394 H Lactate Dehydrogenase Total Bilirubin 1.50 H Direct Bilirubin CK-MB (CK-2) C-Reactive Protein NT-Pro-B Natriuret Pep Total Protein Albumin 2.9 L Arterial Blood Glucose Urine WBC (Auto) Urine Creatinine 02/05/20 02/05/20 02/05/20 00:41 06:37 17:14 WBC RBC Hgb Hct MCHC RDW MCV MCH Lymph % (Auto) [place] % (Auto) [place] # Eos # Lymph # (Auto) [place] # (Auto) Eos # (Auto) Seg Neutrophils % Seg Neuts % (Manual) Baso # (Auto) Lymphocytes % (Manual) Monocytes % (Manual) Eosinophils % (Manual) Basophils % (Manual) Seg Neutrophils # Seg Neutrophils # Man Lymphocytes # (Manual) Monocytes # (Manual) Eosinophils # (Manual) Nucleated RBC % Basophils # (Manual) PT INR APTT Heparin Anti-Xa Level ABG pH POC ABG pO2 ABG pO2 ABG HCO3 ABG O2 Saturation ABG Base Excess POC ABG pCO2 ABG Hemoglobin ABG Oxyhemoglobin ABG Chloride ABG Glucose Oxyhemoglobin Sodium Potassium 3.1 L Chloride Carbon Dioxide 35 H BUN 32 H Creatinine 0.7 L Glucose POC Glucose 69 L 127 H Lactic Acid Calcium Phosphorus Magnesium AST 134 H ALT 352 H Lactate Dehydrogenase Total Bilirubin 1.60 H Direct Bilirubin CK-MB (CK-2) C-Reactive Protein NT-Pro-B Natriuret Pep Total Protein Albumin 2.9 L Arterial Blood Glucose Urine WBC (Auto) Urine Creatinine 02/05/20 02/06/20 02/06/20 23:43 05:32 08:01 WBC RBC Hgb Hct MCHC RDW MCV MCH Lymph % (Auto) [place] % (Auto) [place] # Eos # Lymph # (Auto) [place] # (Auto) Eos # (Auto) Seg Neutrophils % Seg Neuts % (Manual) Baso # (Auto) Lymphocytes % (Manual) Monocytes % (Manual) Eosinophils % (Manual) Basophils % (Manual) Seg Neutrophils # Seg Neutrophils # Man Lymphocytes # (Manual) Monocytes # (Manual) Eosinophils # (Manual) Nucleated RBC % Basophils # (Manual) PT INR APTT Heparin Anti-Xa Level ABG pH POC ABG pO2 ABG pO2 ABG HCO3 ABG O2 Saturation ABG Base Excess POC ABG pCO2 ABG Hemoglobin ABG Oxyhemoglobin ABG Chloride ABG Glucose Oxyhemoglobin Sodium Potassium Chloride Carbon Dioxide BUN 40 H Creatinine Glucose 132 H POC Glucose 129 H 131 H Lactic Acid Calcium Phosphorus Magnesium AST ALT Lactate Dehydrogenase Total Bilirubin Direct Bilirubin CK-MB (CK-2) C-Reactive Protein NT-Pro-B Natriuret Pep Total Protein Albumin Arterial Blood Glucose Urine WBC (Auto) Urine Creatinine 02/06/20 02/06/20 02/06/20 11:51 16:28 17:32 WBC RBC Hgb Hct MCHC RDW MCV MCH Lymph % (Auto) [place] % (Auto) [place] # Eos # Lymph # (Auto) [place] # (Auto) Eos # (Auto) Seg Neutrophils % Seg Neuts % (Manual) Baso # (Auto) Lymphocytes % (Manual) Monocytes % (Manual) Eosinophils % (Manual) Basophils % (Manual) Seg Neutrophils # Seg Neutrophils # Man Lymphocytes # (Manual) Monocytes # (Manual) Eosinophils # (Manual) Nucleated RBC % Basophils # (Manual) PT INR APTT Heparin Anti-Xa Level ABG pH POC ABG pO2 ABG pO2 ABG HCO3 ABG O2 Saturation ABG Base Excess POC ABG pCO2 ABG Hemoglobin ABG Oxyhemoglobin ABG Chloride ABG Glucose Oxyhemoglobin Sodium Potassium Chloride Carbon Dioxide BUN Creatinine Glucose POC Glucose 167 H 129 H Lactic Acid Calcium Phosphorus Magnesium AST 824 H ALT 948 H Lactate Dehydrogenase Total Bilirubin 1.70 H Direct Bilirubin 1.2 H CK-MB (CK-2) C-Reactive Protein NT-Pro-B Natriuret Pep Total Protein Albumin 2.9 L Arterial Blood Glucose Urine WBC (Auto) Urine Creatinine 02/07/20 02/07/20 02/07/20 00:11 04:57 04:57 WBC RBC Hgb 9.2 L Hct 29.7 L MCHC 31 L RDW 20.2 H MCV 80 L MCH 25 L Lymph % (Auto) [place] % (Auto) [place] # Eos # Lymph # (Auto) [place] # (Auto) Eos # (Auto) Seg Neutrophils % Seg Neuts % (Manual) Baso # (Auto) Lymphocytes % (Manual) Monocytes % (Manual) Eosinophils % (Manual) Basophils % (Manual) Seg Neutrophils # Seg Neutrophils # Man Lymphocytes # (Manual) Monocytes # (Manual) Eosinophils # (Manual) Nucleated RBC % Basophils # (Manual) PT INR APTT Heparin Anti-Xa Level ABG pH POC ABG pO2 ABG pO2 ABG HCO3 ABG O2 Saturation ABG Base Excess POC ABG pCO2 ABG Hemoglobin ABG Oxyhemoglobin ABG Chloride ABG Glucose Oxyhemoglobin Sodium Potassium 3.4 L D Chloride Carbon Dioxide 32 H BUN 39 H Creatinine Glucose 106 H POC Glucose 121 H Lactic Acid Calcium Phosphorus Magnesium AST ALT Lactate Dehydrogenase Total Bilirubin Direct Bilirubin CK-MB (CK-2) C-Reactive Protein NT-Pro-B Natriuret Pep Total Protein Albumin Arterial Blood Glucose Urine WBC (Auto) Urine Creatinine 02/07/20 02/07/20 02/07/20 15:03 15:03 17:11 WBC RBC Hgb Hct MCHC RDW MCV MCH Lymph % (Auto) [place] % (Auto) [place] # Eos # Lymph # (Auto) [place] # (Auto) Eos # (Auto) Seg Neutrophils % Seg Neuts % (Manual) Baso # (Auto) Lymphocytes % (Manual) Monocytes % (Manual) Eosinophils % (Manual) Basophils % (Manual) Seg Neutrophils # Seg Neutrophils # Man Lymphocytes # (Manual) Monocytes # (Manual) Eosinophils # (Manual) Nucleated RBC % Basophils # (Manual) PT 27.0 H INR 2.46 H APTT Heparin Anti-Xa Level ABG pH POC ABG pO2 ABG pO2 ABG HCO3 ABG O2 Saturation ABG Base Excess POC ABG pCO2 ABG Hemoglobin ABG Oxyhemoglobin ABG Chloride ABG Glucose Oxyhemoglobin Sodium Potassium Chloride Carbon Dioxide BUN Creatinine Glucose POC Glucose 109 H Lactic Acid Calcium Phosphorus Magnesium AST 424 H ALT 796 H Lactate Dehydrogenase Total Bilirubin 1.60 H Direct Bilirubin 1.2 H CK-MB (CK-2) C-Reactive Protein NT-Pro-B Natriuret Pep Total Protein Albumin 2.9 L Arterial Blood Glucose Urine WBC (Auto) Urine Creatinine 02/08/20 02/08/20 02/08/20 12:14 17:44 19:00 WBC RBC Hgb Hct MCHC RDW MCV MCH Lymph % (Auto) [place] % (Auto) [place] # Eos # Lymph # (Auto) [place] # (Auto) Eos # (Auto) Seg Neutrophils % Seg Neuts % (Manual) Baso # (Auto) Lymphocytes % (Manual) Monocytes % (Manual) Eosinophils % (Manual) Basophils % (Manual) Seg Neutrophils # Seg Neutrophils # Man Lymphocytes # (Manual) Monocytes # (Manual) Eosinophils # (Manual) Nucleated RBC % Basophils # (Manual) PT INR APTT Heparin Anti-Xa Level ABG pH POC ABG pO2 ABG pO2 ABG HCO3 ABG O2 Saturation ABG Base Excess POC ABG pCO2 ABG Hemoglobin ABG Oxyhemoglobin ABG Chloride ABG Glucose Oxyhemoglobin Sodium Potassium Chloride Carbon Dioxide BUN Creatinine Glucose POC Glucose 111 H 107 H Lactic Acid Calcium Phosphorus Magnesium AST 309 H ALT 650 H Lactate Dehydrogenase Total Bilirubin 1.30 H Direct Bilirubin 0.9 H CK-MB (CK-2) C-Reactive Protein NT-Pro-B Natriuret Pep Total Protein 6.2 L Albumin 2.7 L Arterial Blood Glucose Urine WBC (Auto) Urine Creatinine 02/09/20 02/09/20 02/09/20 05:41 12:28 18:07 WBC RBC Hgb Hct MCHC RDW MCV MCH Lymph % (Auto) [place] % (Auto) [place] # Eos # Lymph # (Auto) [place] # (Auto) Eos # (Auto) Seg Neutrophils % Seg Neuts % (Manual) Baso # (Auto) Lymphocytes % (Manual) Monocytes % (Manual) Eosinophils % (Manual) Basophils % (Manual) Seg Neutrophils # Seg Neutrophils # Man Lymphocytes # (Manual) Monocytes # (Manual) Eosinophils # (Manual) Nucleated RBC % Basophils # (Manual) PT INR APTT Heparin Anti-Xa Level ABG pH POC ABG pO2 ABG pO2 ABG HCO3 ABG O2 Saturation ABG Base Excess POC ABG pCO2 ABG Hemoglobin ABG Oxyhemoglobin ABG Chloride ABG Glucose Oxyhemoglobin Sodium Potassium Chloride Carbon Dioxide BUN Creatinine Glucose POC Glucose 113 H 140 H 143 H Lactic Acid Calcium Phosphorus Magnesium AST ALT Lactate Dehydrogenase Total Bilirubin Direct Bilirubin CK-MB (CK-2) C-Reactive Protein NT-Pro-B Natriuret Pep Total Protein Albumin Arterial Blood Glucose Urine WBC (Auto) Urine Creatinine 02/09/20 02/09/20 02/10/20 21:40 23:45 06:00 WBC RBC Hgb Hct MCHC RDW MCV MCH Lymph % (Auto) [place] % (Auto) [place] # Eos # Lymph # (Auto) [place] # (Auto) Eos # (Auto) Seg Neutrophils % Seg Neuts % (Manual) Baso # (Auto) Lymphocytes % (Manual) Monocytes % (Manual) Eosinophils % (Manual) Basophils % (Manual) Seg Neutrophils # Seg Neutrophils # Man Lymphocytes # (Manual) Monocytes # (Manual) Eosinophils # (Manual) Nucleated RBC % Basophils # (Manual) PT INR APTT Heparin Anti-Xa Level ABG pH POC ABG pO2 ABG pO2 59.8 L ABG HCO3 33.3 H ABG O2 Saturation 88.9 L ABG Base Excess 7.4 H POC ABG pCO2 ABG Hemoglobin 10.4 L ABG Oxyhemoglobin ABG Chloride ABG Glucose Oxyhemoglobin 86.3 L Sodium Potassium Chloride Carbon Dioxide BUN Creatinine Glucose POC Glucose 127 H 114 H Lactic Acid Calcium Phosphorus Magnesium AST ALT Lactate Dehydrogenase Total Bilirubin Direct Bilirubin CK-MB (CK-2) C-Reactive Protein NT-Pro-B Natriuret Pep Total Protein Albumin Arterial Blood Glucose Urine WBC (Auto) Urine Creatinine 02/10/20 02/10/20 02/10/20 07:40 07:40 13:38 WBC 11.5 H RBC Hgb 10.6 L Hct 34.7 L MCHC 31 L RDW 19.8 H MCV 79 L MCH 24 L Lymph % (Auto) [place] % (Auto) 9.2 H [place] # Eos # Lymph # (Auto) [place] # (Auto) 1.1 H Eos # (Auto) Seg Neutrophils % Seg Neuts % (Manual) Baso # (Auto) Lymphocytes % (Manual) Monocytes % (Manual) Eosinophils % (Manual) Basophils % (Manual) Seg Neutrophils # Seg Neutrophils # Man Lymphocytes # (Manual) Monocytes # (Manual) Eosinophils # (Manual) Nucleated RBC % Basophils # (Manual) PT INR APTT Heparin Anti-Xa Level ABG pH POC ABG pO2 ABG pO2 ABG HCO3 ABG O2 Saturation ABG Base Excess POC ABG pCO2 ABG Hemoglobin ABG Oxyhemoglobin ABG Chloride ABG Glucose Oxyhemoglobin Sodium 151 H Potassium Chloride 107.2 H Carbon Dioxide 36 H BUN 25 H Creatinine 0.7 L Glucose 114 H POC Glucose 116 H Lactic Acid Calcium Phosphorus Magnesium 2.40 H AST ALT Lactate Dehydrogenase Total Bilirubin Direct Bilirubin CK-MB (CK-2) C-Reactive Protein NT-Pro-B Natriuret Pep Total Protein Albumin Arterial Blood Glucose Urine WBC (Auto) Urine Creatinine 02/10/20 02/11/20 02/11/20 17:44 05:47 12:21 WBC RBC Hgb Hct MCHC RDW MCV MCH Lymph % (Auto) [place] % (Auto) [place] # Eos # Lymph # (Auto) [place] # (Auto) Eos # (Auto) Seg Neutrophils % Seg Neuts % (Manual) Baso # (Auto) Lymphocytes % (Manual) Monocytes % (Manual) Eosinophils % (Manual) Basophils % (Manual) Seg Neutrophils # Seg Neutrophils # Man Lymphocytes # (Manual) Monocytes # (Manual) Eosinophils # (Manual) Nucleated RBC % Basophils # (Manual) PT INR APTT Heparin Anti-Xa Level ABG pH POC ABG pO2 ABG pO2 ABG HCO3 ABG O2 Saturation ABG Base Excess POC ABG pCO2 ABG Hemoglobin ABG Oxyhemoglobin ABG Chloride ABG Glucose Oxyhemoglobin Sodium Potassium Chloride Carbon Dioxide BUN Creatinine Glucose POC Glucose 139 H 173 H 143 H Lactic Acid Calcium Phosphorus Magnesium AST ALT Lactate Dehydrogenase Total Bilirubin Direct Bilirubin CK-MB (CK-2) C-Reactive Protein NT-Pro-B Natriuret Pep Total Protein Albumin Arterial Blood Glucose Urine WBC (Auto) Urine Creatinine 02/11/20 02/11/20 02/12/20 13:43 14:11 00:15 WBC RBC Hgb Hct MCHC RDW MCV MCH Lymph % (Auto) [place] % (Auto) [place] # Eos # Lymph # (Auto) [place] # (Auto) Eos # (Auto) Seg Neutrophils % Seg Neuts % (Manual) Baso # (Auto) Lymphocytes % (Manual) Monocytes % (Manual) Eosinophils % (Manual) Basophils % (Manual) Seg Neutrophils # Seg Neutrophils # Man Lymphocytes # (Manual) Monocytes # (Manual) Eosinophils # (Manual) Nucleated RBC % Basophils # (Manual) PT INR APTT Heparin Anti-Xa Level ABG pH 7.502 H POC ABG pO2 77.7 L ABG pO2 ABG HCO3 ABG O2 Saturation ABG Base Excess POC ABG pCO2 ABG Hemoglobin 11.1 L ABG Oxyhemoglobin ABG Chloride 108.0 H ABG Glucose 151 H Oxyhemoglobin Sodium Potassium Chloride Carbon Dioxide BUN Creatinine Glucose POC Glucose 130 H 125 H Lactic Acid Calcium Phosphorus Magnesium AST ALT Lactate Dehydrogenase Total Bilirubin Direct Bilirubin CK-MB (CK-2) C-Reactive Protein NT-Pro-B Natriuret Pep Total Protein Albumin Arterial Blood Glucose 151 H Urine WBC (Auto) Urine Creatinine 02/12/20 02/12/20 02/12/20 04:56 04:56 17:42 WBC RBC Hgb 9.9 L Hct 31.8 L MCHC 31 L RDW 19.4 H MCV 79 L MCH 25 L Lymph % (Auto) [place] % (Auto) 10.3 H [place] # Eos # Lymph # (Auto) [place] # (Auto) 1.0 H Eos # (Auto) Seg Neutrophils % Seg Neuts % (Manual) Baso # (Auto) Lymphocytes % (Manual) Monocytes % (Manual) Eosinophils % (Manual) Basophils % (Manual) Seg Neutrophils # Seg Neutrophils # Man Lymphocytes # (Manual) Monocytes # (Manual) Eosinophils # (Manual) Nucleated RBC % Basophils # (Manual) PT INR APTT Heparin Anti-Xa Level ABG pH POC ABG pO2 ABG pO2 ABG HCO3 ABG O2 Saturation ABG Base Excess POC ABG pCO2 ABG Hemoglobin ABG Oxyhemoglobin ABG Chloride ABG Glucose Oxyhemoglobin Sodium 149 H Potassium Chloride 108.6 H Carbon Dioxide BUN 28 H Creatinine 0.7 L Glucose 108 H POC Glucose 113 H Lactic Acid Calcium Phosphorus Magnesium AST ALT Lactate Dehydrogenase Total Bilirubin Direct Bilirubin CK-MB (CK-2) C-Reactive Protein NT-Pro-B Natriuret Pep Total Protein Albumin Arterial Blood Glucose Urine WBC (Auto) Urine Creatinine 02/13/20 02/13/20 02/13/20 00:39 05:36 12:25 WBC RBC Hgb Hct MCHC RDW MCV MCH Lymph % (Auto) [place] % (Auto) [place] # Eos # Lymph # (Auto) [place] # (Auto) Eos # (Auto) Seg Neutrophils % Seg Neuts % (Manual) Baso # (Auto) Lymphocytes % (Manual) Monocytes % (Manual) Eosinophils % (Manual) Basophils % (Manual) Seg Neutrophils # Seg Neutrophils # Man Lymphocytes # (Manual) Monocytes # (Manual) Eosinophils # (Manual) Nucleated RBC % Basophils # (Manual) PT INR APTT Heparin Anti-Xa Level ABG pH POC ABG pO2 ABG pO2 ABG HCO3 ABG O2 Saturation ABG Base Excess POC ABG pCO2 ABG Hemoglobin ABG Oxyhemoglobin ABG Chloride ABG Glucose Oxyhemoglobin Sodium Potassium Chloride Carbon Dioxide BUN Creatinine Glucose POC Glucose 129 H 126 H 129 H Lactic Acid Calcium Phosphorus Magnesium AST ALT Lactate Dehydrogenase Total Bilirubin Direct Bilirubin CK-MB (CK-2) C-Reactive Protein NT-Pro-B Natriuret Pep Total Protein Albumin Arterial Blood Glucose Urine WBC (Auto) Urine Creatinine 02/13/20 02/14/20 02/14/20 17:59 00:15 05:41 WBC RBC Hgb Hct MCHC RDW MCV MCH Lymph % (Auto) [place] % (Auto) [place] # Eos # Lymph # (Auto) [place] # (Auto) Eos # (Auto) Seg Neutrophils % Seg Neuts % (Manual) Baso # (Auto) Lymphocytes % (Manual) Monocytes % (Manual) Eosinophils % (Manual) Basophils % (Manual) Seg Neutrophils # Seg Neutrophils # Man Lymphocytes # (Manual) Monocytes # (Manual) Eosinophils # (Manual) Nucleated RBC % Basophils # (Manual) PT INR APTT Heparin Anti-Xa Level ABG pH POC ABG pO2 ABG pO2 ABG HCO3 ABG O2 Saturation ABG Base Excess POC ABG pCO2 ABG Hemoglobin ABG Oxyhemoglobin ABG Chloride ABG Glucose Oxyhemoglobin Sodium Potassium Chloride Carbon Dioxide BUN Creatinine Glucose POC Glucose 153 H 130 H 130 H Lactic Acid Calcium Phosphorus Magnesium AST ALT Lactate Dehydrogenase Total Bilirubin Direct Bilirubin CK-MB (CK-2) C-Reactive Protein NT-Pro-B Natriuret Pep Total Protein Albumin Arterial Blood Glucose Urine WBC (Auto) Urine Creatinine 02/14/20 02/15/20 02/15/20 11:32 00:12 05:27 WBC RBC Hgb Hct MCHC RDW MCV MCH Lymph % (Auto) [place] % (Auto) [place] # Eos # Lymph # (Auto) [place] # (Auto) Eos # (Auto) Seg Neutrophils % Seg Neuts % (Manual) Baso # (Auto) Lymphocytes % (Manual) Monocytes % (Manual) Eosinophils % (Manual) Basophils % (Manual) Seg Neutrophils # Seg Neutrophils # Man Lymphocytes # (Manual) Monocytes # (Manual) Eosinophils # (Manual) Nucleated RBC % Basophils # (Manual) PT INR APTT Heparin Anti-Xa Level ABG pH POC ABG pO2 ABG pO2 ABG HCO3 ABG O2 Saturation ABG Base Excess POC ABG pCO2 ABG Hemoglobin ABG Oxyhemoglobin ABG Chloride ABG Glucose Oxyhemoglobin Sodium Potassium Chloride Carbon Dioxide BUN Creatinine Glucose POC Glucose 157 H 124 H 111 H Lactic Acid Calcium Phosphorus Magnesium AST ALT Lactate Dehydrogenase Total Bilirubin Direct Bilirubin CK-MB (CK-2) C-Reactive Protein NT-Pro-B Natriuret Pep Total Protein Albumin Arterial Blood Glucose Urine WBC (Auto) Urine Creatinine 02/15/20 02/15/20 02/15/20 06:59 06:59 11:14 WBC RBC Hgb 10.4 L Hct 33.7 L MCHC 31 L RDW 19.4 H MCV 80 L MCH 24 L Lymph % (Auto) [place] % (Auto) [place] # Eos # Lymph # (Auto) [place] # (Auto) Eos # (Auto) Seg Neutrophils % Seg Neuts % (Manual) Baso # (Auto) Lymphocytes % (Manual) Monocytes % (Manual) Eosinophils % (Manual) Basophils % (Manual) 2.0 H Seg Neutrophils # Seg Neutrophils # Man Lymphocytes # (Manual) Monocytes # (Manual) Eosinophils # (Manual) Nucleated RBC % 1.0 H Basophils # (Manual) 0.2 H PT INR APTT Heparin Anti-Xa Level ABG pH POC ABG pO2 ABG pO2 ABG HCO3 ABG O2 Saturation ABG Base Excess POC ABG pCO2 ABG Hemoglobin ABG Oxyhemoglobin ABG Chloride ABG Glucose Oxyhemoglobin Sodium 149 H Potassium Chloride 108.4 H Carbon Dioxide 31 H BUN 40 H Creatinine 0.7 L Glucose 150 H POC Glucose 128 H Lactic Acid Calcium Phosphorus Magnesium AST ALT Lactate Dehydrogenase Total Bilirubin Direct Bilirubin CK-MB (CK-2) C-Reactive Protein NT-Pro-B Natriuret Pep Total Protein Albumin Arterial Blood Glucose Urine WBC (Auto) Urine Creatinine 02/15/20 02/15/20 02/16/20 17:46 23:50 05:03 WBC RBC Hgb Hct MCHC RDW MCV MCH Lymph % (Auto) [place] % (Auto) [place] # Eos # Lymph # (Auto) [place] # (Auto) Eos # (Auto) Seg Neutrophils % Seg Neuts % (Manual) Baso # (Auto) Lymphocytes % (Manual) Monocytes % (Manual) Eosinophils % (Manual) Basophils % (Manual) Seg Neutrophils # Seg Neutrophils # Man Lymphocytes # (Manual) Monocytes # (Manual) Eosinophils # (Manual) Nucleated RBC % Basophils # (Manual) PT INR APTT Heparin Anti-Xa Level ABG pH POC ABG pO2 ABG pO2 ABG HCO3 ABG O2 Saturation ABG Base Excess POC ABG pCO2 ABG Hemoglobin ABG Oxyhemoglobin ABG Chloride ABG Glucose Oxyhemoglobin Sodium Potassium Chloride Carbon Dioxide BUN Creatinine Glucose POC Glucose 154 H 135 H 148 H Lactic Acid Calcium Phosphorus Magnesium AST ALT Lactate Dehydrogenase Total Bilirubin Direct Bilirubin CK-MB (CK-2) C-Reactive Protein NT-Pro-B Natriuret Pep Total Protein Albumin Arterial Blood Glucose Urine WBC (Auto) Urine Creatinine 02/16/20 02/16/20 02/16/20 07:53 11:28 17:52 WBC RBC Hgb Hct MCHC RDW MCV MCH Lymph % (Auto) [place] % (Auto) [place] # Eos # Lymph # (Auto) [place] # (Auto) Eos # (Auto) Seg Neutrophils % Seg Neuts % (Manual) Baso # (Auto) Lymphocytes % (Manual) Monocytes % (Manual) Eosinophils % (Manual) Basophils % (Manual) Seg Neutrophils # Seg Neutrophils # Man Lymphocytes # (Manual) Monocytes # (Manual) Eosinophils # (Manual) Nucleated RBC % Basophils # (Manual) PT INR APTT Heparin Anti-Xa Level ABG pH POC ABG pO2 ABG pO2 ABG HCO3 ABG O2 Saturation ABG Base Excess POC ABG pCO2 ABG Hemoglobin ABG Oxyhemoglobin ABG Chloride ABG Glucose Oxyhemoglobin Sodium Potassium Chloride 107.9 H Carbon Dioxide BUN 38 H Creatinine 0.6 L Glucose 151 H POC Glucose 123 H 152 H Lactic Acid Calcium Phosphorus Magnesium AST ALT Lactate Dehydrogenase Total Bilirubin Direct Bilirubin CK-MB (CK-2) C-Reactive Protein NT-Pro-B Natriuret Pep Total Protein Albumin Arterial Blood Glucose Urine WBC (Auto) Urine Creatinine 02/16/20 02/17/20 02/17/20 23:49 06:24 11:36 WBC RBC Hgb Hct MCHC RDW MCV MCH Lymph % (Auto) [place] % (Auto) [place] # Eos # Lymph # (Auto) [place] # (Auto) Eos # (Auto) Seg Neutrophils % Seg Neuts % (Manual) Baso # (Auto) Lymphocytes % (Manual) Monocytes % (Manual) Eosinophils % (Manual) Basophils % (Manual) Seg Neutrophils # Seg Neutrophils # Man Lymphocytes # (Manual) Monocytes # (Manual) Eosinophils # (Manual) Nucleated RBC % Basophils # (Manual) PT INR APTT Heparin Anti-Xa Level ABG pH POC ABG pO2 ABG pO2 ABG HCO3 ABG O2 Saturation ABG Base Excess POC ABG pCO2 ABG Hemoglobin ABG Oxyhemoglobin ABG Chloride ABG Glucose Oxyhemoglobin Sodium Potassium Chloride Carbon Dioxide BUN Creatinine Glucose POC Glucose 156 H 193 H 162 H Lactic Acid Calcium Phosphorus Magnesium AST ALT Lactate Dehydrogenase Total Bilirubin Direct Bilirubin CK-MB (CK-2) C-Reactive Protein NT-Pro-B Natriuret Pep Total Protein Albumin Arterial Blood Glucose Urine WBC (Auto) Urine Creatinine 02/17/20 02/17/20 02/18/20 17:55 23:28 05:11 WBC RBC Hgb Hct MCHC RDW MCV MCH Lymph % (Auto) [place] % (Auto) [place] # Eos # Lymph # (Auto) [place] # (Auto) Eos # (Auto) Seg Neutrophils % Seg Neuts % (Manual) Baso # (Auto) Lymphocytes % (Manual) Monocytes % (Manual) Eosinophils % (Manual) Basophils % (Manual) Seg Neutrophils # Seg Neutrophils # Man Lymphocytes # (Manual) Monocytes # (Manual) Eosinophils # (Manual) Nucleated RBC % Basophils # (Manual) PT INR APTT Heparin Anti-Xa Level ABG pH POC ABG pO2 ABG pO2 ABG HCO3 ABG O2 Saturation ABG Base Excess POC ABG pCO2 ABG Hemoglobin ABG Oxyhemoglobin ABG Chloride ABG Glucose Oxyhemoglobin Sodium Potassium Chloride Carbon Dioxide BUN Creatinine Glucose POC Glucose 165 H 146 H 122 H Lactic Acid Calcium Phosphorus Magnesium AST ALT Lactate Dehydrogenase Total Bilirubin Direct Bilirubin CK-MB (CK-2) C-Reactive Protein NT-Pro-B Natriuret Pep Total Protein Albumin Arterial Blood Glucose Urine WBC (Auto) Urine Creatinine 02/18/20 02/18/20 02/19/20 12:24 17:29 00:01 WBC RBC Hgb Hct MCHC RDW MCV MCH Lymph % (Auto) [place] % (Auto) [place] # Eos # Lymph # (Auto) [place] # (Auto) Eos # (Auto) Seg Neutrophils % Seg Neuts % (Manual) Baso # (Auto) Lymphocytes % (Manual) Monocytes % (Manual) Eosinophils % (Manual) Basophils % (Manual) Seg Neutrophils # Seg Neutrophils # Man Lymphocytes # (Manual) Monocytes # (Manual) Eosinophils # (Manual) Nucleated RBC % Basophils # (Manual) PT INR APTT Heparin Anti-Xa Level ABG pH POC ABG pO2 ABG pO2 ABG HCO3 ABG O2 Saturation ABG Base Excess POC ABG pCO2 ABG Hemoglobin ABG Oxyhemoglobin ABG Chloride ABG Glucose Oxyhemoglobin Sodium Potassium Chloride Carbon Dioxide BUN Creatinine Glucose POC Glucose 162 H 136 H 145 H Lactic Acid Calcium Phosphorus Magnesium AST ALT Lactate Dehydrogenase Total Bilirubin Direct Bilirubin CK-MB (CK-2) C-Reactive Protein NT-Pro-B Natriuret Pep Total Protein Albumin Arterial Blood Glucose Urine WBC (Auto) Urine Creatinine 02/19/20 02/19/20 02/19/20 05:53 11:44 17:32 WBC RBC Hgb Hct MCHC RDW MCV MCH Lymph % (Auto) [place] % (Auto) [place] # Eos # Lymph # (Auto) [place] # (Auto) Eos # (Auto) Seg Neutrophils % Seg Neuts % (Manual) Baso # (Auto) Lymphocytes % (Manual) Monocytes % (Manual) Eosinophils % (Manual) Basophils % (Manual) Seg Neutrophils # Seg Neutrophils # Man Lymphocytes # (Manual) Monocytes # (Manual) Eosinophils # (Manual) Nucleated RBC % Basophils # (Manual) PT INR APTT Heparin Anti-Xa Level ABG pH POC ABG pO2 ABG pO2 ABG HCO3 ABG O2 Saturation ABG Base Excess POC ABG pCO2 ABG Hemoglobin ABG Oxyhemoglobin ABG Chloride ABG Glucose Oxyhemoglobin Sodium Potassium Chloride Carbon Dioxide BUN Creatinine Glucose POC Glucose 116 H 120 H 154 H Lactic Acid Calcium Phosphorus Magnesium AST ALT Lactate Dehydrogenase Total Bilirubin Direct Bilirubin CK-MB (CK-2) C-Reactive Protein NT-Pro-B Natriuret Pep Total Protein Albumin Arterial Blood Glucose Urine WBC (Auto) Urine Creatinine 02/19/20 02/20/20 02/20/20 23:43 00:24 00:24 WBC RBC Hgb 9.4 L Hct 30.0 L MCHC 31 L RDW 20.4 H MCV 79 L MCH 25 L Lymph % (Auto) [place] % (Auto) 8.5 H [place] # Eos # Lymph # (Auto) [place] # (Auto) Eos # (Auto) Seg Neutrophils % Seg Neuts % (Manual) Baso # (Auto) Lymphocytes % (Manual) Monocytes % (Manual) Eosinophils % (Manual) Basophils % (Manual) Seg Neutrophils # Seg Neutrophils # Man Lymphocytes # (Manual) Monocytes # (Manual) Eosinophils # (Manual) Nucleated RBC % Basophils # (Manual) PT INR APTT Heparin Anti-Xa Level ABG pH POC ABG pO2 ABG pO2 ABG HCO3 ABG O2 Saturation ABG Base Excess POC ABG pCO2 ABG Hemoglobin ABG Oxyhemoglobin ABG Chloride ABG Glucose Oxyhemoglobin Sodium 147 H Potassium 3.4 L Chloride Carbon Dioxide 31 H BUN 34 H Creatinine 0.5 L Glucose 135 H POC Glucose 122 H Lactic Acid Calcium Phosphorus Magnesium AST ALT Lactate Dehydrogenase Total Bilirubin Direct Bilirubin CK-MB (CK-2) C-Reactive Protein NT-Pro-B Natriuret Pep Total Protein Albumin Arterial Blood Glucose Urine WBC (Auto) Urine Creatinine 02/20/20 02/20/20 02/20/20 06:07 06:45 12:03 WBC RBC Hgb Hct MCHC RDW MCV MCH Lymph % (Auto) [place] % (Auto) [place] # Eos # Lymph # (Auto) [place] # (Auto) Eos # (Auto) Seg Neutrophils % Seg Neuts % (Manual) Baso # (Auto) Lymphocytes % (Manual) Monocytes % (Manual) Eosinophils % (Manual) Basophils % (Manual) Seg Neutrophils # Seg Neutrophils # Man Lymphocytes # (Manual) Monocytes # (Manual) Eosinophils # (Manual) Nucleated RBC % Basophils # (Manual) PT INR APTT Heparin Anti-Xa Level ABG pH 7.461 H POC ABG pO2 ABG pO2 ABG HCO3 33.3 H ABG O2 Saturation ABG Base Excess 8.4 H POC ABG pCO2 ABG Hemoglobin 10.0 L ABG Oxyhemoglobin ABG Chloride ABG Glucose Oxyhemoglobin 94.1 L Sodium Potassium Chloride Carbon Dioxide BUN Creatinine Glucose POC Glucose 109 H 128 H Lactic Acid Calcium Phosphorus Magnesium AST ALT Lactate Dehydrogenase Total Bilirubin Direct Bilirubin CK-MB (CK-2) C-Reactive Protein NT-Pro-B Natriuret Pep Total Protein Albumin Arterial Blood Glucose Urine WBC (Auto) Urine Creatinine 11/28/20 11/28/20 11/29/20 18:02 23:55 05:42 WBC RBC Hgb Hct MCHC RDW MCV MCH Lymph % (Auto) [place] % (Auto) [place] # Eos # Lymph # (Auto) [place] # (Auto) Eos # (Auto) Seg Neutrophils % Seg Neuts % (Manual) Baso # (Auto) Lymphocytes % (Manual) Monocytes % (Manual) Eosinophils % (Manual) Basophils % (Manual) Seg Neutrophils # Seg Neutrophils # Man Lymphocytes # (Manual) Monocytes # (Manual) Eosinophils # (Manual) Nucleated RBC % Basophils # (Manual) PT INR APTT Heparin Anti-Xa Level ABG pH POC ABG pO2 ABG pO2 ABG HCO3 ABG O2 Saturation ABG Base Excess POC ABG pCO2 ABG Hemoglobin ABG Oxyhemoglobin ABG Chloride ABG Glucose Oxyhemoglobin Sodium Potassium Chloride Carbon Dioxide BUN Creatinine Glucose POC Glucose 118 H 125 H 127 H Lactic Acid Calcium Phosphorus Magnesium AST ALT Lactate Dehydrogenase Total Bilirubin Direct Bilirubin CK-MB (CK-2) C-Reactive Protein NT-Pro-B Natriuret Pep Total Protein Albumin Arterial Blood Glucose Urine WBC (Auto) Urine Creatinine 02/21/20 02/21/20 02/21/20 12:10 17:35 23:40 WBC RBC Hgb Hct MCHC RDW MCV MCH Lymph % (Auto) [place] % (Auto) [place] # Eos # Lymph # (Auto) [place] # (Auto) Eos # (Auto) Seg Neutrophils % Seg Neuts % (Manual) Baso # (Auto) Lymphocytes % (Manual) Monocytes % (Manual) Eosinophils % (Manual) Basophils % (Manual) Seg Neutrophils # Seg Neutrophils # Man Lymphocytes # (Manual) Monocytes # (Manual) Eosinophils # (Manual) Nucleated RBC % Basophils # (Manual) PT INR APTT Heparin Anti-Xa Level ABG pH POC ABG pO2 ABG pO2 ABG HCO3 ABG O2 Saturation ABG Base Excess POC ABG pCO2 ABG Hemoglobin ABG Oxyhemoglobin ABG Chloride ABG Glucose Oxyhemoglobin Sodium Potassium Chloride Carbon Dioxide BUN Creatinine Glucose POC Glucose 128 H 113 H 125 H Lactic Acid Calcium Phosphorus Magnesium AST ALT Lactate Dehydrogenase Total Bilirubin Direct Bilirubin CK-MB (CK-2) C-Reactive Protein NT-Pro-B Natriuret Pep Total Protein Albumin Arterial Blood Glucose Urine WBC (Auto) Urine Creatinine 02/22/20 02/22/2002/21/20 05:57 08:06 08:06 WBC RBC Hgb 10.8 L Hct 35.2 L MCHC 31 L RDW 21.8 H MCV 80 L MCH 25 L Lymph % (Auto) [place] % (Auto) [place] # Eos # Lymph # (Auto) [place] # (Auto) Eos # (Auto) Seg Neutrophils % 71.5 H Seg Neuts % (Manual) Baso # (Auto) Lymphocytes % (Manual) Monocytes % (Manual) Eosinophils % (Manual) Basophils % (Manual) Seg Neutrophils # Seg Neutrophils # Man Lymphocytes # (Manual) Monocytes # (Manual) Eosinophils # (Manual) Nucleated RBC % Basophils # (Manual) PT INR APTT Heparin Anti-Xa Level ABG pH POC ABG pO2 ABG pO2 ABG HCO3 ABG O2 Saturation ABG Base Excess POC ABG pCO2 ABG Hemoglobin ABG Oxyhemoglobin ABG Chloride ABG Glucose Oxyhemoglobin Sodium 146 H Potassium Chloride Carbon Dioxide 34 H BUN 21 H Creatinine 0.4 L Glucose 149 H POC Glucose 138 H Lactic Acid Calcium Phosphorus Magnesium AST ALT Lactate Dehydrogenase Total Bilirubin Direct Bilirubin CK-MB (CK-2) C-Reactive Protein NT-Pro-B Natriuret Pep Total Protein Albumin Arterial Blood Glucose Urine WBC (Auto) Urine Creatinine 02/22/20 02/22/20 02/22/20 11:47 17:11 23:25 WBC RBC Hgb Hct MCHC RDW MCV MCH Lymph % (Auto) [place] % (Auto) [place] # Eos # Lymph # (Auto) [place] # (Auto) Eos # (Auto) Seg Neutrophils % Seg Neuts % (Manual) Baso # (Auto) Lymphocytes % (Manual) Monocytes % (Manual) Eosinophils % (Manual) Basophils % (Manual) Seg Neutrophils # Seg Neutrophils # Man Lymphocytes # (Manual) Monocytes # (Manual) Eosinophils # (Manual) Nucleated RBC % Basophils # (Manual) PT INR APTT Heparin Anti-Xa Level ABG pH POC ABG pO2 ABG pO2 ABG HCO3 ABG O2 Saturation ABG Base Excess POC ABG pCO2 ABG Hemoglobin ABG Oxyhemoglobin ABG Chloride ABG Glucose Oxyhemoglobin Sodium Potassium Chloride Carbon Dioxide BUN Creatinine Glucose POC Glucose 149 H 144 H 142 H Lactic Acid Calcium Phosphorus Magnesium AST ALT Lactate Dehydrogenase Total Bilirubin Direct Bilirubin CK-MB (CK-2) C-Reactive Protein NT-Pro-B Natriuret Pep Total Protein Albumin Arterial Blood Glucose Urine WBC (Auto) Urine Creatinine 02/23/20 02/23/20 02/23/20 05:22 11:37 18:14 WBC RBC Hgb Hct MCHC RDW MCV MCH Lymph % (Auto) [place] % (Auto) [place] # Eos # Lymph # (Auto) [place] # (Auto) Eos # (Auto) Seg Neutrophils % Seg Neuts % (Manual) Baso # (Auto) Lymphocytes % (Manual) Monocytes % (Manual) Eosinophils % (Manual) Basophils % (Manual) Seg Neutrophils # Seg Neutrophils # Man Lymphocytes # (Manual) Monocytes # (Manual) Eosinophils # (Manual) Nucleated RBC % Basophils # (Manual) PT INR APTT Heparin Anti-Xa Level ABG pH POC ABG pO2 ABG pO2 ABG HCO3 ABG O2 Saturation ABG Base Excess POC ABG pCO2 ABG Hemoglobin ABG Oxyhemoglobin ABG Chloride ABG Glucose Oxyhemoglobin Sodium Potassium Chloride Carbon Dioxide BUN Creatinine Glucose POC Glucose 144 H 113 H 127 H Lactic Acid Calcium Phosphorus Magnesium AST ALT Lactate Dehydrogenase Total Bilirubin Direct Bilirubin CK-MB (CK-2) C-Reactive Protein NT-Pro-B Natriuret Pep Total Protein Albumin Arterial Blood Glucose Urine WBC (Auto) Urine Creatinine 02/23/20 02/24/20 02/24/20 23:45 05:50 11:24 WBC RBC Hgb Hct MCHC RDW MCV MCH Lymph % (Auto) [place] % (Auto) [place] # Eos # Lymph # (Auto) [place] # (Auto) Eos # (Auto) Seg Neutrophils % Seg Neuts % (Manual) Baso # (Auto) Lymphocytes % (Manual) Monocytes % (Manual) Eosinophils % (Manual) Basophils % (Manual) Seg Neutrophils # Seg Neutrophils # Man Lymphocytes # (Manual) Monocytes # (Manual) Eosinophils # (Manual) Nucleated RBC % Basophils # (Manual) PT INR APTT Heparin Anti-Xa Level ABG pH POC ABG pO2 ABG pO2 ABG HCO3 ABG O2 Saturation ABG Base Excess POC ABG pCO2 ABG Hemoglobin ABG Oxyhemoglobin ABG Chloride ABG Glucose Oxyhemoglobin Sodium Potassium Chloride Carbon Dioxide BUN Creatinine Glucose POC Glucose 123 H 117 H 126 H Lactic Acid Calcium Phosphorus Magnesium AST ALT Lactate Dehydrogenase Total Bilirubin Direct Bilirubin CK-MB (CK-2) C-Reactive Protein NT-Pro-B Natriuret Pep Total Protein Albumin Arterial Blood Glucose Urine WBC (Auto) Urine Creatinine 02/24/20 02/24/20 02/25/20 18:35 23:27 05:20 WBC RBC Hgb Hct MCHC RDW MCV MCH Lymph % (Auto) [place] % (Auto) [place] # Eos # Lymph # (Auto) [place] # (Auto) Eos # (Auto) Seg Neutrophils % Seg Neuts % (Manual) Baso # (Auto) Lymphocytes % (Manual) Monocytes % (Manual) Eosinophils % (Manual) Basophils % (Manual) Seg Neutrophils # Seg Neutrophils # Man Lymphocytes # (Manual) Monocytes # (Manual) Eosinophils # (Manual) Nucleated RBC % Basophils # (Manual) PT INR APTT Heparin Anti-Xa Level ABG pH POC ABG pO2 ABG pO2 ABG HCO3 ABG O2 Saturation ABG Base Excess POC ABG pCO2 ABG Hemoglobin ABG Oxyhemoglobin ABG Chloride ABG Glucose Oxyhemoglobin Sodium Potassium Chloride Carbon Dioxide BUN Creatinine Glucose POC Glucose 121 H 127 H 133 H Lactic Acid Calcium Phosphorus Magnesium AST ALT Lactate Dehydrogenase Total Bilirubin Direct Bilirubin CK-MB (CK-2) C-Reactive Protein NT-Pro-B Natriuret Pep Total Protein Albumin Arterial Blood Glucose Urine WBC (Auto) Urine Creatinine 02/25/20 02/25/20 02/25/20 12:08 17:26 23:33 WBC RBC Hgb Hct MCHC RDW MCV MCH Lymph % (Auto) [place] % (Auto) [place] # Eos # Lymph # (Auto) [place] # (Auto) Eos # (Auto) Seg Neutrophils % Seg Neuts % (Manual) Baso # (Auto) Lymphocytes % (Manual) Monocytes % (Manual) Eosinophils % (Manual) Basophils % (Manual) Seg Neutrophils # Seg Neutrophils # Man Lymphocytes # (Manual) Monocytes # (Manual) Eosinophils # (Manual) Nucleated RBC % Basophils # (Manual) PT INR APTT Heparin Anti-Xa Level ABG pH POC ABG pO2 ABG pO2 ABG HCO3 ABG O2 Saturation ABG Base Excess POC ABG pCO2 ABG Hemoglobin ABG Oxyhemoglobin ABG Chloride ABG Glucose Oxyhemoglobin Sodium Potassium Chloride Carbon Dioxide BUN Creatinine Glucose POC Glucose 109 H 120 H 120 H Lactic Acid Calcium Phosphorus Magnesium AST ALT Lactate Dehydrogenase Total Bilirubin Direct Bilirubin CK-MB (CK-2) C-Reactive Protein NT-Pro-B Natriuret Pep Total Protein Albumin Arterial Blood Glucose Urine WBC (Auto) Urine Creatinine 02/26/20 02/26/20 02/27/20 05:33 07:50 12:13 WBC RBC Hgb Hct MCHC RDW MCV MCH Lymph % (Auto) [place] % (Auto) [place] # Eos # Lymph # (Auto) [place] # (Auto) Eos # (Auto) Seg Neutrophils % Seg Neuts % (Manual) Baso # (Auto) Lymphocytes % (Manual) Monocytes % (Manual) Eosinophils % (Manual) Basophils % (Manual) Seg Neutrophils # Seg Neutrophils # Man Lymphocytes # (Manual) Monocytes # (Manual) Eosinophils # (Manual) Nucleated RBC % Basophils # (Manual) PT INR APTT Heparin Anti-Xa Level ABG pH POC ABG pO2 ABG pO2 ABG HCO3 ABG O2 Saturation ABG Base Excess POC ABG pCO2 ABG Hemoglobin ABG Oxyhemoglobin ABG Chloride ABG Glucose Oxyhemoglobin Sodium Potassium Chloride Carbon Dioxide BUN Creatinine Glucose POC Glucose 106 H 130 H Lactic Acid Calcium Phosphorus Magnesium AST ALT Lactate Dehydrogenase Total Bilirubin Direct Bilirubin CK-MB (CK-2) C-Reactive Protein NT-Pro-B Natriuret Pep Total Protein Albumin Arterial Blood Glucose Urine WBC (Auto) > 182.0 H Urine Creatinine 02/27/20 02/27/20 02/28/20 18:20 23:33 05:01 WBC RBC Hgb Hct MCHC RDW MCV MCH Lymph % (Auto) [place] % (Auto) [place] # Eos # Lymph # (Auto) [place] # (Auto) Eos # (Auto) Seg Neutrophils % Seg Neuts % (Manual) Baso # (Auto) Lymphocytes % (Manual) Monocytes % (Manual) Eosinophils % (Manual) Basophils % (Manual) Seg Neutrophils # Seg Neutrophils # Man Lymphocytes # (Manual) Monocytes # (Manual) Eosinophils # (Manual) Nucleated RBC % Basophils # (Manual) PT INR APTT Heparin Anti-Xa Level ABG pH POC ABG pO2 ABG pO2 ABG HCO3 ABG O2 Saturation ABG Base Excess POC ABG pCO2 ABG Hemoglobin ABG Oxyhemoglobin ABG Chloride ABG Glucose Oxyhemoglobin Sodium Potassium Chloride Carbon Dioxide BUN Creatinine Glucose POC Glucose 109 H 124 H 134 H Lactic Acid Calcium Phosphorus Magnesium AST ALT Lactate Dehydrogenase Total Bilirubin Direct Bilirubin CK-MB (CK-2) C-Reactive Protein NT-Pro-B Natriuret Pep Total Protein Albumin Arterial Blood Glucose Urine WBC (Auto) Urine Creatinine 02/28/20 02/28/20 02/28/20 11:54 18:16 23:03 WBC RBC Hgb Hct MCHC RDW MCV MCH Lymph % (Auto) [place] % (Auto) [place] # Eos # Lymph # (Auto) [place] # (Auto) Eos # (Auto) Seg Neutrophils % Seg Neuts % (Manual) Baso # (Auto) Lymphocytes % (Manual) Monocytes % (Manual) Eosinophils % (Manual) Basophils % (Manual) Seg Neutrophils # Seg Neutrophils # Man Lymphocytes # (Manual) Monocytes # (Manual) Eosinophils # (Manual) Nucleated RBC % Basophils # (Manual) PT INR APTT Heparin Anti-Xa Level ABG pH POC ABG pO2 ABG pO2 ABG HCO3 ABG O2 Saturation ABG Base Excess POC ABG pCO2 ABG Hemoglobin ABG Oxyhemoglobin ABG Chloride ABG Glucose Oxyhemoglobin Sodium Potassium Chloride Carbon Dioxide BUN Creatinine Glucose POC Glucose 133 H 134 H 146 H Lactic Acid Calcium Phosphorus Magnesium AST ALT Lactate Dehydrogenase Total Bilirubin Direct Bilirubin CK-MB (CK-2) C-Reactive Protein NT-Pro-B Natriuret Pep Total Protein Albumin Arterial Blood Glucose Urine WBC (Auto) Urine Creatinine 02/29/20 02/29/20 02/29/20 05:24 11:34 17:12 WBC RBC Hgb Hct MCHC RDW MCV MCH Lymph % (Auto) [place] % (Auto) [place] # Eos # Lymph # (Auto) [place] # (Auto) Eos # (Auto) Seg Neutrophils % Seg Neuts % (Manual) Baso # (Auto) Lymphocytes % (Manual) Monocytes % (Manual) Eosinophils % (Manual) Basophils % (Manual) Seg Neutrophils # Seg Neutrophils # Man Lymphocytes # (Manual) Monocytes # (Manual) Eosinophils # (Manual) Nucleated RBC % Basophils # (Manual) PT INR APTT Heparin Anti-Xa Level ABG pH POC ABG pO2 ABG pO2 ABG HCO3 ABG O2 Saturation ABG Base Excess POC ABG pCO2 ABG Hemoglobin ABG Oxyhemoglobin ABG Chloride ABG Glucose Oxyhemoglobin Sodium Potassium Chloride Carbon Dioxide BUN Creatinine Glucose POC Glucose 139 H 141 H 157 H Lactic Acid Calcium Phosphorus Magnesium AST ALT Lactate Dehydrogenase Total Bilirubin Direct Bilirubin CK-MB (CK-2) C-Reactive Protein NT-Pro-B Natriuret Pep Total Protein Albumin Arterial Blood Glucose Urine WBC (Auto) Urine Creatinine 02/29/20 03/01/20 03/01/20 23:35 06:00 11:53 WBC RBC Hgb Hct MCHC RDW MCV MCH Lymph % (Auto) [place] % (Auto) [place] # Eos # Lymph # (Auto) [place] # (Auto) Eos # (Auto) Seg Neutrophils % Seg Neuts % (Manual) Baso # (Auto) Lymphocytes % (Manual) Monocytes % (Manual) Eosinophils % (Manual) Basophils % (Manual) Seg Neutrophils # Seg Neutrophils # Man Lymphocytes # (Manual) Monocytes # (Manual) Eosinophils # (Manual) Nucleated RBC % Basophils # (Manual) PT INR APTT Heparin Anti-Xa Level ABG pH POC ABG pO2 ABG pO2 ABG HCO3 ABG O2 Saturation ABG Base Excess POC ABG pCO2 ABG Hemoglobin ABG Oxyhemoglobin ABG Chloride ABG Glucose Oxyhemoglobin Sodium Potassium Chloride Carbon Dioxide BUN Creatinine Glucose POC Glucose 120 H 132 H 136 H Lactic Acid Calcium Phosphorus Magnesium AST ALT Lactate Dehydrogenase Total Bilirubin Direct Bilirubin CK-MB (CK-2) C-Reactive Protein NT-Pro-B Natriuret Pep Total Protein Albumin Arterial Blood Glucose Urine WBC (Auto) Urine Creatinine 03/01/20 03/01/20 03/02/20 17:36 23:16 05:12 WBC RBC Hgb Hct MCHC RDW MCV MCH Lymph % (Auto) [place] % (Auto) [place] # Eos # Lymph # (Auto) [place] # (Auto) Eos # (Auto) Seg Neutrophils % Seg Neuts % (Manual) Baso # (Auto) Lymphocytes % (Manual) Monocytes % (Manual) Eosinophils % (Manual) Basophils % (Manual) Seg Neutrophils # Seg Neutrophils # Man Lymphocytes # (Manual) Monocytes # (Manual) Eosinophils # (Manual) Nucleated RBC % Basophils # (Manual) PT INR APTT Heparin Anti-Xa Level ABG pH POC ABG pO2 ABG pO2 ABG HCO3 ABG O2 Saturation ABG Base Excess POC ABG pCO2 ABG Hemoglobin ABG Oxyhemoglobin ABG Chloride ABG Glucose Oxyhemoglobin Sodium Potassium Chloride Carbon Dioxide BUN Creatinine Glucose POC Glucose 171 H 164 H 176 H Lactic Acid Calcium Phosphorus Magnesium AST ALT Lactate Dehydrogenase Total Bilirubin Direct Bilirubin CK-MB (CK-2) C-Reactive Protein NT-Pro-B Natriuret Pep Total Protein Albumin Arterial Blood Glucose Urine WBC (Auto) Urine Creatinine 03/02/20 03/02/20 03/03/20 11:42 18:01 00:06 WBC RBC Hgb Hct MCHC RDW MCV MCH Lymph % (Auto) [place] % (Auto) [place] # Eos # Lymph # (Auto) [place] # (Auto) Eos # (Auto) Seg Neutrophils % Seg Neuts % (Manual) Baso # (Auto) Lymphocytes % (Manual) Monocytes % (Manual) Eosinophils % (Manual) Basophils % (Manual) Seg Neutrophils # Seg Neutrophils # Man Lymphocytes # (Manual) Monocytes # (Manual) Eosinophils # (Manual) Nucleated RBC % Basophils # (Manual) PT INR APTT Heparin Anti-Xa Level ABG pH POC ABG pO2 ABG pO2 ABG HCO3 ABG O2 Saturation ABG Base Excess POC ABG pCO2 ABG Hemoglobin ABG Oxyhemoglobin ABG Chloride ABG Glucose Oxyhemoglobin Sodium Potassium Chloride Carbon Dioxide BUN Creatinine Glucose POC Glucose 150 H 156 H 156 H Lactic Acid Calcium Phosphorus Magnesium AST ALT Lactate Dehydrogenase Total Bilirubin Direct Bilirubin CK-MB (CK-2) C-Reactive Protein NT-Pro-B Natriuret Pep Total Protein Albumin Arterial Blood Glucose Urine WBC (Auto) Urine Creatinine 03/03/20 03/03/20 03/03/20 03:31 11:20 16:55 WBC RBC Hgb Hct MCHC RDW MCV MCH Lymph % (Auto) [place] % (Auto) [place] # Eos # Lymph # (Auto) [place] # (Auto) Eos # (Auto) Seg Neutrophils % Seg Neuts % (Manual) Baso # (Auto) Lymphocytes % (Manual) Monocytes % (Manual) Eosinophils % (Manual) Basophils % (Manual) Seg Neutrophils # Seg Neutrophils # Man Lymphocytes # (Manual) Monocytes # (Manual) Eosinophils # (Manual) Nucleated RBC % Basophils # (Manual) PT INR APTT Heparin Anti-Xa Level ABG pH POC ABG pO2 ABG pO2 ABG HCO3 ABG O2 Saturation ABG Base Excess POC ABG pCO2 ABG Hemoglobin ABG Oxyhemoglobin ABG Chloride ABG Glucose Oxyhemoglobin Sodium Potassium Chloride Carbon Dioxide BUN Creatinine Glucose POC Glucose 164 H 125 H 211 H Lactic Acid Calcium Phosphorus Magnesium AST ALT Lactate Dehydrogenase Total Bilirubin Direct Bilirubin CK-MB (CK-2) C-Reactive Protein NT-Pro-B Natriuret Pep Total Protein Albumin Arterial Blood Glucose Urine WBC (Auto) Urine Creatinine 03/04/20 03/04/20 03/04/20 00:29 05:20 12:09 WBC RBC Hgb Hct MCHC RDW MCV MCH Lymph % (Auto) [place] % (Auto) [place] # Eos # Lymph # (Auto) [place] # (Auto) Eos # (Auto) Seg Neutrophils % Seg Neuts % (Manual) Baso # (Auto) Lymphocytes % (Manual) Monocytes % (Manual) Eosinophils % (Manual) Basophils % (Manual) Seg Neutrophils # Seg Neutrophils # Man Lymphocytes # (Manual) Monocytes # (Manual) Eosinophils # (Manual) Nucleated RBC % Basophils # (Manual) PT INR APTT Heparin Anti-Xa Level ABG pH POC ABG pO2 ABG pO2 ABG HCO3 ABG O2 Saturation ABG Base Excess POC ABG pCO2 ABG Hemoglobin ABG Oxyhemoglobin ABG Chloride ABG Glucose Oxyhemoglobin Sodium Potassium Chloride Carbon Dioxide BUN Creatinine Glucose POC Glucose 169 H 154 H 197 H Lactic Acid Calcium Phosphorus Magnesium AST ALT Lactate Dehydrogenase Total Bilirubin Direct Bilirubin CK-MB (CK-2) C-Reactive Protein NT-Pro-B Natriuret Pep Total Protein Albumin Arterial Blood Glucose Urine WBC (Auto) Urine Creatinine 03/04/20 03/04/20 03/04/20 18:00 20:38 20:38 WBC RBC Hgb 10.1 L Hct 32.7 L MCHC 31 L RDW 24.7 H MCV 79 L MCH 24 L Lymph % (Auto) [place] % (Auto) 8.9 H [place] # Eos # Lymph # (Auto) [place] # (Auto) Eos # (Auto) Seg Neutrophils % Seg Neuts % (Manual) Baso # (Auto) Lymphocytes % (Manual) Monocytes % (Manual) Eosinophils % (Manual) Basophils % (Manual) Seg Neutrophils # Seg Neutrophils # Man Lymphocytes # (Manual) Monocytes # (Manual) Eosinophils # (Manual) Nucleated RBC % Basophils # (Manual) PT INR APTT Heparin Anti-Xa Level ABG pH POC ABG pO2 ABG pO2 ABG HCO3 ABG O2 Saturation ABG Base Excess POC ABG pCO2 ABG Hemoglobin ABG Oxyhemoglobin ABG Chloride ABG Glucose Oxyhemoglobin Sodium 136 L Potassium Chloride Carbon Dioxide BUN 25 H Creatinine 0.5 L Glucose 148 H POC Glucose 146 H Lactic Acid Calcium Phosphorus Magnesium AST ALT Lactate Dehydrogenase Total Bilirubin Direct Bilirubin CK-MB (CK-2) C-Reactive Protein NT-Pro-B Natriuret Pep Total Protein Albumin Arterial Blood Glucose Urine WBC (Auto) Urine Creatinine 03/04/20 03/05/20 03/05/20 23:17 05:44 11:32 WBC RBC Hgb Hct MCHC RDW MCV MCH Lymph % (Auto) [place] % (Auto) [place] # Eos # Lymph # (Auto) [place] # (Auto) Eos # (Auto) Seg Neutrophils % Seg Neuts % (Manual) Baso # (Auto) Lymphocytes % (Manual) Monocytes % (Manual) Eosinophils % (Manual) Basophils % (Manual) Seg Neutrophils # Seg Neutrophils # Man Lymphocytes # (Manual) Monocytes # (Manual) Eosinophils # (Manual) Nucleated RBC % Basophils # (Manual) PT INR APTT Heparin Anti-Xa Level ABG pH POC ABG pO2 ABG pO2 ABG HCO3 ABG O2 Saturation ABG Base Excess POC ABG pCO2 ABG Hemoglobin ABG Oxyhemoglobin ABG Chloride ABG Glucose Oxyhemoglobin Sodium Potassium Chloride Carbon Dioxide BUN Creatinine Glucose POC Glucose 139 H 155 H 124 H Lactic Acid Calcium Phosphorus Magnesium AST ALT Lactate Dehydrogenase Total Bilirubin Direct Bilirubin CK-MB (CK-2) C-Reactive Protein NT-Pro-B Natriuret Pep Total Protein Albumin Arterial Blood Glucose Urine WBC (Auto) Urine Creatinine 03/05/20 03/05/20 03/06/20 17:45 23:18 12:16 WBC RBC Hgb Hct MCHC RDW MCV MCH Lymph % (Auto) [place] % (Auto) [place] # Eos # Lymph # (Auto) [place] # (Auto) Eos # (Auto) Seg Neutrophils % Seg Neuts % (Manual) Baso # (Auto) Lymphocytes % (Manual) Monocytes % (Manual) Eosinophils % (Manual) Basophils % (Manual) Seg Neutrophils # Seg Neutrophils # Man Lymphocytes # (Manual) Monocytes # (Manual) Eosinophils # (Manual) Nucleated RBC % Basophils # (Manual) PT INR APTT Heparin Anti-Xa Level ABG pH POC ABG pO2 ABG pO2 ABG HCO3 ABG O2 Saturation ABG Base Excess POC ABG pCO2 ABG Hemoglobin ABG Oxyhemoglobin ABG Chloride ABG Glucose Oxyhemoglobin Sodium Potassium Chloride Carbon Dioxide BUN Creatinine Glucose POC Glucose 171 H 114 H 155 H Lactic Acid Calcium Phosphorus Magnesium AST ALT Lactate Dehydrogenase Total Bilirubin Direct Bilirubin CK-MB (CK-2) C-Reactive Protein NT-Pro-B Natriuret Pep Total Protein Albumin Arterial Blood Glucose Urine WBC (Auto) Urine Creatinine 03/06/20 17:27 WBC RBC Hgb Hct MCHC RDW MCV MCH Lymph % (Auto) [place] % (Auto) [place] # Eos # Lymph # (Auto) [place] # (Auto) Eos # (Auto) Seg Neutrophils % Seg Neuts % (Manual) Baso # (Auto) Lymphocytes % (Manual) Monocytes % (Manual) Eosinophils % (Manual) Basophils % (Manual) Seg Neutrophils # Seg Neutrophils # Man Lymphocytes # (Manual) Monocytes # (Manual) Eosinophils # (Manual) Nucleated RBC % Basophils # (Manual) PT INR APTT Heparin Anti-Xa Level ABG pH POC ABG pO2 ABG pO2 ABG HCO3 ABG O2 Saturation ABG Base Excess POC ABG pCO2 ABG Hemoglobin ABG Oxyhemoglobin ABG Chloride ABG Glucose Oxyhemoglobin Sodium Potassium Chloride Carbon Dioxide BUN Creatinine Glucose POC Glucose 116 H Lactic Acid Calcium Phosphorus Magnesium AST ALT Lactate Dehydrogenase Total Bilirubin Direct Bilirubin CK-MB (CK-2) C-Reactive Protein NT-Pro-B Natriuret Pep Total Protein Albumin Arterial Blood Glucose Urine WBC (Auto) Urine Creatinine Allied health notes reviewed: RT
[2020-03-06] MEDS: TAMSULOSIN 0.4 MG CAP PO SCH (21:59)
[2020-03-06] MEDS: POLYETHYLENE GLYCOL 3350 17 GM POWDER PO SCH (22:00)
--- NOTE | 2020-03-07 08:31 | Progress Note ---
Assessment and Plan Assessment and plan: --Ischemic cardiomyopathy Cardiology is following, status post cardiac catheterization on 01/22/2020; Coronary artery disease status post PCI and stent to the LAD Continue current cardiac medications --Acute on chronic hypoxemic respiratory failure; Patient has tracheostomy on vent Continue nebulizers, , trach care Wean off ventilator as tolerated Pulmonary critical following --Acute exacerbation of COPD; Patient is currently on ventilatory support Continue nebulizers --Left lower lobe PE; Continue Eliquis, ventilatory support --Acute right lower extremity DVT; Patient is on Eliquis --Bilateral multifocal pneumonia/community-acquired Completed antibiotics, improved --Severe sepsis/bilateral pneumonia: Completed antibiotics COVID-19 test; 11/24/2019; negative 11/26/2019; negative 12/29/2019: Negative --Paroxysmal atrial fibrillation; Now rate controlled, Stable on amiodarone and Eliquis --Acute on chronic combined systolic and diastolic congestive heart failure Ischemic cardiomyopathy left ventricular ejection fraction 40 to 45% --H/o CAD [[facility] 12/2018 in-stent restenosis] Patient is stable on current cardiac medications --Hypertensive emergency; present on admission Reasonable blood pressures, continue current antihypertensives As needed medications --History of alcohol abuse/alcohol withdrawal; Was on CIWA protocol, now stable --Oropharyngeal dysphagia; status post PEG placement Continue PEG feeds per protocol --History of partial small bowel obstruction; resolved --Obesity; BMI 34.7 Patient needs weight reduction when medically stable --Severe protein calorie malnutrition/hypoalbuminemia Nutrition supplements, dietitian following, PEG feeds --DVT prophylaxis;Eliquis --Full CODE STATUS The high probability of a clinically significant, sudden or life threatening deterioration of the [Respiratory, cardiovascular & neurological] system(s) required my full and direct attention, intervention and personal management. The aggregate critical care time was [32] minutes without overlap. Time includes spent on [x] Data Review and interpretation [x] Patient assessment and monitoring of vital signs [x] Documentation [x] Medication orders and management 02/22. Awake and alert on vent. Vitals stable. 02/23. Awake and alert on vent. Requests for ice. Vitals stable 02/24. Trach to vent. Continue rate control with metoprolol and digoxin. Amiodarone discontinued due to elevated liver transaminases. Eliquis for anticoagulation of acute PE/DVT. Transferred to [facility] 02/25. Seen in IMCU. Requests for ice. RN to provide a cube of ice. Vitals stable . 02/26. No change in medical condition. Slightly tachy this AM. Will monitor. 02/27. Cardiology started him on a beta hebert. Still on vent 02/28. Discharge planning as per annealing furnace operator. Still on vent. Tachycardia noted. 03/01/2020; patient is tachycardic, still on the vent. Discharge management as per annealing furnace operator. 03/02/2020; patient is on a vent and trach. Discharge is per annealing furnace operator. 03/03/2012; patient is on vent and trach patient is alert and oriented. 03/04/2020; patient is on vent and trach, patient is alert. 03/05/2020; patient is on vent and trach, patient is alert. 03/06/2020 patient is on vent and trach patient is alert, possible LTAC placement History Interval history: I have seen and examined the patient at the bedside in ICU this morning Patient's chart and medications reviewed. Patient with chronic tracheostomy on ventilatory support, Unable to wean Patient is alert and awake and in mild distress Vital signs reviewed Hospitalist Physical - Constitutional Vitals: Temp Pulse Resp BP Pulse Ox 97.5 F L 121 H 18 99/71 99 03/07/20 08:00 03/07/20 08:08 03/07/20 08:00 03/07/20 08:08 03/07/20 08:08 General appearance: Present: no acute distress, well-nourished, other (Tracheostomy on vent) - EENT Eyes: Present: PERRL, EOM intact - Neck Neck: Present: other (Tracheostomy and ET tube in place) - Respiratory Respiratory effort: normal Respiratory: bilateral: diminished, rhonchi, negative: rales, wheezing - Cardiovascular Rhythm: regular Heart Sounds: Present: S1 & S2 - Extremities Extremities: no ischemia, No edema - Abdominal General gastrointestinal: soft, non-tender, non-distended, normal bowel sounds, other (PEG tube in place) - Integumentary Integumentary: Present: clear, warm - Psychiatric Psychiatric: other (Alert and awake) - Neurologic Neurologic: other (Residual weakness) HEART Score - HEART Score Troponin: Troponin T < 0.010 ng/mL (0.00-0.029) 01/19/20 01:35 Results - Labs CBC & Chem 7: 03/04/20 20:38 03/04/20 20:38 Labs: Laboratory Last Values WBC 7.4 K/mm3 (4.5-11.0) 03/04/20 20:38 RBC 4.12 M/mm3 (3.65-5.03) 03/04/20 20:38 Hgb 10.1 gm/dl (11.8-15.2) L 03/04/20 20:38 Hct 32.7 % (35.5-45.6) L 03/04/20 20:38 MCV 79 fl (84-94) L 03/04/20 20:38 MCH 24 pg (28-32) L 03/04/20 20:38 MCHC 31 % (32-34) L 03/04/20 20:38 RDW 24.7 % (13.2-15.2) H 03/04/20 20:38 Plt Count 204 K/mm3 (140-440) 03/04/20 20:38 Lymph % (Auto) 27.0 % (13.4-35.0) 03/04/20 20:38 [place]uthrie % (Auto) 8.9 % (0.0-7.3) H 03/04/20 20:38 Eos % (Auto) 2.2 % (0.0-4.3) 03/04/20 20:38 Baso % (Auto) 0.3 % (0.0-1.8) 03/04/20 20:38 Lymph # (Auto) 2.0 K/mm3 (1.2-5.4) 03/04/20 20:38 Guthrie # (Auto) 0.7 K/mm3 (0.0-0.8) 03/04/20 20:38 Eos # (Auto) 0.2 K/mm3 (0.0-0.4) 03/04/20 20:38 Baso # (Auto) 0.0 K/mm3 (0.0-0.1) 03/04/20 20:38 Add Manual Diff Complete 02/15/20 06:59 Total Counted 100 02/15/20 06:59 Seg Neutrophils % 61.6 % (40.0-70.0) 03/04/20 20:38 Seg Neuts % (Manual) 58.0 % (40.0-70.0) 02/15/20 06:59 Band Neutrophils % 0 % 02/15/20 06:59 Lymphocytes % (Manual) 34.0 % (13.4-35.0) 02/15/20 06:59 Reactive Lymphs % (Man) 1.0 % 02/15/20 06:59 Monocytes % (Manual) 4.0 % (0.0-7.3) 02/15/20 06:59 Eosinophils % (Manual) 0 % (0.0-4.3) 02/15/20 06:59 Basophils % (Manual) 2.0 % (0.0-1.8) H 02/15/20 06:59 Metamyelocytes % 1.0 % 02/15/20 06:59 Myelocytes % 0 % 02/15/20 06:59 Promyelocytes % 0 % 02/15/20 06:59 Blast Cells % 0 % 02/15/20 06:59 Nucleated RBC % 1.0 % (0.0-0.9) H 02/15/20 06:59 Seg Neutrophils # 4.6 K/mm3 (1.8-7.7) 03/04/20 20:38 Seg Neutrophils # Man 5.9 K/mm3 (1.8-7.7) 02/15/20 06:59 Band Neutrophils # 0.0 K/mm3 02/15/20 06:59 Lymphocytes # (Manual) 3.5 K/mm3 (1.2-5.4) 02/15/20 06:59 Abs React Lymphs (Man) 0.1 K/mm3 02/15/20 06:59 Monocytes # (Manual) 0.4 K/mm3 (0.0-0.8) 02/15/20 06:59 Eosinophils # (Manual) 0.0 K/mm3 (0.0-0.4) 02/15/20 06:59 Basophils # (Manual) 0.2 K/mm3 (0.0-0.1) H 02/15/20 06:59 Metamyelocytes # 0.1 K/mm3 02/15/20 06:59 Myelocytes # 0.0 K/mm3 02/15/20 06:59 Promyelocytes # 0.0 K/mm3 02/15/20 06:59 Blast Cells # 0.0 K/mm3 02/15/20 06:59 WBC Morphology Not Reportable 02/15/20 06:59 Hypersegmented Neuts Not Reportable 02/15/20 06:59 Hyposegmented Neuts Not Reportable 02/15/20 06:59 Hypogranular Neuts Not Reportable 02/15/20 06:59 Smudge Cells Not Reportable 02/15/20 06:59 Toxic Granulation Not Reportable 02/15/20 06:59 Toxic Vacuolation Not Reportable 02/15/20 06:59 Dohle Bodies Not Reportable 02/15/20 06:59 Pelger-Huet Anomaly Not Reportable 02/15/20 06:59 Hector Rods Not Reportable 02/15/20 06:59 Platelet Estimate Consistent w auto 02/15/20 06:59 Clumped Platelets Not Reportable 02/15/20 06:59 Plt Clumps, EDTA Not Reportable 02/15/20 06:59 Large Platelets Not Reportable 02/15/20 06:59 Giant Platelets Not Reportable 02/15/20 06:59 Platelet Satelliting Not Reportable 02/15/20 06:59 Plt Morphology Comment Giant platelets 02/15/20 06:59 RBC Morphology Not Reportable 02/15/20 06:59 Dimorphic RBCs Not Reportable 02/15/20 06:59 Polychromasia Not Reportable 02/15/20 06:59 Hypochromasia 1+ 02/15/20 06:59 Poikilocytosis Few 02/15/20 06:59 Anisocytosis 1+ 02/15/20 06:59 Microcytosis Not Reportable 02/15/20 06:59 Macrocytosis Not Reportable 02/15/20 06:59 Spherocytes Not Reportable 02/15/20 06:59 Pappenheimer Bodies Not Reportable 02/15/20 06:59 Sickle Cells Not Reportable 02/15/20 06:59 Target Cells 1+ 02/15/20 06:59 Tear Drop Cells Few 02/15/20 06:59 Ovalocytes Not Reportable 02/15/20 06:59 Helmet Cells Not Reportable 02/15/20 06:59 Gott[place] Bodies Not Reportable 02/15/20 06:59 [place] Rings Not Reportable 02/15/20 06:59 Oc Cells Not Reportable 02/15/20 06:59 Bite Cells Not Reportable 02/15/20 06:59 Crenated Cell Not Reportable 02/15/20 06:59 Elliptocytes Few 02/15/20 06:59 Acanthocytes (Spur) Not Reportable 02/15/20 06:59 Rouleaux Not Reportable 02/15/20 06:59 Hemoglobin C Crystals Not Reportable 02/15/20 06:59 Schistocytes Not Reportable 02/15/20 06:59 Malaria parasites Not Reportable 02/15/20 06:59 Clifford Bodies Not Reportable 02/15/20 06:59 Hem Pathologist Commnt No 02/15/20 06:59 PT 27.0 Sec. (12.2-14.9) H 02/07/20 15:03 INR 2.46 (0.87-1.13) H 02/07/20 15:03 APTT 31.5 Sec. (24.2-36.6) 01/22/20 09:58 Heparin Anti-Xa Level 1.34 U.I./ml (0.3-0.7) H 01/22/20 04:45 ABG pH 7.461 pH Units (7.350-7.450) H 02/20/20 06:45 POC ABG pCO2 34.8 mmHg (32.0-48.0) 02/11/20 14:11 ABG pCO2 47.8 mm Hg 02/20/20 06:45 POC ABG pO2 77.7 mmHg (83-108) L 02/11/20 14:11 ABG pO2 88.7 mm Hg (80.0-90.0) 02/20/20 06:45 POC ABG HCO3 26.7 02/11/20 14:11 ABG HCO3 33.3 mmol/L (20.0-26.0) H 02/20/20 06:45 ABG O2 Saturation 97.2 % (95.0-99.0) 02/20/20 06:45 ABG O2 Content 13.3 (0.0-44) 02/20/20 06:45 POC ABG Base Excess 3.6 02/11/20 14:11 ABG Base Excess 8.4 mmol/L (-2.0-3.0) H 02/20/20 06:45 ABG Hemoglobin 10.0 gm/dl (14.0-18.0) L 02/20/20 06:45 ABG Oxyhemoglobin 84 (94-98) L 12/22/19 03:22 ABG Carboxyhemoglobin 2.9 % (0.0-5.0) 02/20/20 06:45 ABG Methemoglobin 0.4 % (0.0-1.5) 02/20/20 06:45 ABG Sodium 144.7 mmol/L (136.0-145.0) 02/11/20 14:11 ABG Potassium 3.5 mmol/L (3.40-4.50) 02/11/20 14:11 ABG Chloride 108.0 mmol/L (98-107) H 02/11/20 14:11 ABG Glucose 151 mg/dL (65-95) H 02/11/20 14:11 Oxyhemoglobin 94.1 % (95.0-99.0) L 02/20/20 06:45 Carboxyhemoglobin 0.7 (0.5-1.5) 12/22/19 03:22 FiO2 30 % 02/20/20 06:45 Sodium 136 mmol/L (137-145) L 03/04/20 20:38 Potassium 4.5 mmol/L (3.6-5.0) 03/04/20 20:38 Chloride 99.8 mmol/L (98-107) 03/04/20 20:38 Carbon Dioxide 28 mmol/L (22-30) 03/04/20 20:38 Anion Gap 13 mmol/L 03/04/20 20:38 BUN 25 mg/dL (9-20) H 03/04/20 20:38 Creatinine 0.5 mg/dL (0.8-1.3) L 03/04/20 20:38 Estimated GFR > 60 ml/min 03/04/20 20:38 BUN/Creatinine Ratio 50 % 03/04/20 20:38 Glucose 148 mg/dL (75-100) H 03/04/20 20:38 POC Glucose 161 mg/dL (70-105) H 03/07/20 06:02 Lactic Acid 1.60 mmol/L (0.7-2.0) 02/03/20 12:49 Calcium 9.0 mg/dL (8.4-10.2) 03/04/20 20:38 Ferritin 84.4 ng/mL (30.0-300.0) 11/24/19 04:53 Phosphorus 4.10 mg/dL (2.5-4.5) 01/31/20 19:24 Magnesium 2.40 mg/dL (1.7-2.3) H 02/10/20 07:40 Total Bilirubin 1.30 mg/dL (0.1-1.2) H 02/08/20 19:00 Direct Bilirubin 0.9 mg/dL (0-0.2) H 02/08/20 19:00 Indirect Bilirubin 0.4 mg/dL 02/08/20 19:00 Total Creatine Kinase 141 units/L (55-170) 11/24/19 02:53 CK-MB (CK-2) 4.3 ng/mL (0.0-4.0) H 11/24/19 02:53 AST 309 units/L (5-40) H 02/08/20 19:00 ALT 650 units/L (7-56) H 02/08/20 19:00 CK-MB (CK-2) Rel Index 3.0 (0-4) 11/24/19 02:53 Alkaline Phosphatase 109 units/L (35-129) 02/08/20 19:00 C-Reactive Protein 8.50 mg/dL (0.00-1.30) H 12/01/19 12:16 Ammonia 35.0 umol/L (25-60) 02/03/20 12:49 Lactate Dehydrogenase 228 units/L (91-180) H 12/19/19 04:45 Troponin T < 0.010 ng/mL (0.00-0.029) 01/19/20 01:35 NT-Pro-B Natriuret Pep 3866 pg/mL (0-900) H 01/01/20 10:40 Total Protein 6.2 g/dL (6.3-8.2) L 02/08/20 19:00 Albumin 2.7 g/dL (3.9-5) L 02/08/20 19:00 Albumin/Globulin Ratio 0.8 % 02/08/20 19:00 Procalcitonin 0.44 ng/mL (<0.15) 02/03/20 12:49 Arterial Blood Glucose 151 mg/dL (65-95) H 02/11/20 14:11 Arterial Blood Ionized Calcium 4.7 mg/dL (4.6-5.3) 02/11/20 14:11 Urine Color Cecy (Yellow) 02/26/20 07:50 Urine Turbidity Clear (Clear) 02/26/20 07:50 Urine pH 5.0 (5.0-7.0) 02/26/20 07:50 Ur Specific [place] 1.025 (1.003-1.030) 02/26/20 07:50 Urine Protein 30 mg/dl mg/dL (Negative) 02/26/20 07:50 Urine Glucose (UA) Neg mg/dL (Negative) 02/26/20 07:50 Urine Ketones Neg mg/dL (Negative) 02/26/20 07:50 Urine Blood Sm (Negative) 02/26/20 07:50 Urine Nitrite Neg (Negative) 02/26/20 07:50 Urine Bilirubin Neg (Negative) 02/26/20 07:50 Urine Urobilinogen 4.0 mg/dL (<2.0) 02/26/20 07:50 Ur Leukocyte Esterase Lg (Negative) 02/26/20 07:50 Urine WBC (Auto) > 182.0 /HPF (0.0-6.0) H 02/26/20 07:50 Urine RBC (Auto) 84.0 /HPF (0.0-6.0) 02/26/20 07:50 U Epithel Cells (Auto) 2.0 /HPF (0-13.0) 12/31/19 18:04 Urine Bacteria (Auto) 4+ /HPF (Negative) 02/26/20 07:50 Urine WBC Clumps 2+ /HPF 02/26/20 07:50 Urine Mucus 1+ /HPF 02/26/20 07:50 Urine Creatinine 57.4 mg/dL (0.1-20.0) H 01/31/20 Unknown Urine Sodium 59 mmol/L 01/31/20 Unknown Vancomycin Trough 14.2 ug/mL (5.0-20.0) 12/13/19 15:01 Coronavirus (PCR) Negative (Negative) 12/29/19 10:07 Hepatitis A IgM Ab Non-reactive (NonReactive) 02/05/20 06:37 Hep Bs Antigen Non-reactive (Negative) 02/05/20 06:37 Hep B Core IgM Ab Non-reactive (NonReactive) 02/05/20 06:37 Hepatitis C Antibody Non-reactive (NonReactive) 02/05/20 06:37 Blood Type O POSITIVE 01/21/20 13:00 Antibody Screen Negative 01/21/20 13:00 - Diagnostic Impressions Diagnostic Impressions: Echocardiogram 11/29/19 07:37 Transthoracic Echocardiogram Indication: CHF BP: 116/72 HR: 33 Conclusions *The study is technically limited due to poor acoustic windows. *Global left ventricular systolic function is normal. *The estimated ejection fraction is 50-55%. *Mild concentric left ventricular hypertrophy is observed. *There is trace of mitral regurgitation. *There is mild tricuspid regurgitation. Findings Procedure Info: The study quality is poor. The study is technically limited due to poor acoustic windows. The study is technically limited due to patient body habitus. Left Ventricle: The left ventricular chamber size is normal. Mild concentric left ventricular hypertrophy is observed. Global left ventricular systolic function is normal. The estimated ejection fraction is 50-55%. Left Atrium: The left atrial chamber size is normal. Right Ventricle: The right ventricular cavity size is normal. Right Atrium: The right atrial cavity size is normal. Aortic Valve: The aortic valve leaflets are moderately thickened. There is trace of aortic regurgitation. There is no evidence of aortic stenosis. Mitral Valve: The mitral valve leaflets are mildly thickened. There is trace of mitral regurgitation. There is no evidence of mitral stenosis. Tricuspid Valve: There is mild tricuspid regurgitation. No pulmonary hypertension is noted. Pulmonic Valve: There is trace pulmonic regurgitation. Pericardium: There is no pericardial effusion. Aorta: There is no dilatation of the aortic root. Venous: The inferior vena cava appears normal in size. Contrast: Definity was used to optimize study. Intravenous contrast was used to enhance endocardial border definition. Measurements Chambers 2D Name Value Normal Range Ao root diameter (2D) 3.4 cm (2 - 3.7) Aortic Valve Name Value Normal Range AV Vmax 0.98 m/sec - AV VTI 16.76 cm - AV peak gradient 3.83 mmHg - AV mean gradient 2.57 mmHg - LVOT diameter 3.11 cm - LVOT Vmax 0.68 m/sec - LVOT VTI 11.52 cm - LVOT peak gradient 1.84 mmHg - LVOT mean gradient 1.27 mmHg - SV LVOT 87.31 ml - MALOU (continuity Vmax) 5.24 cm2 - MALOU (continuity VTI) 5.21 cm2 - Tricuspid Valve Name Value Normal Range IVC diameter 2.24 cm (1.2 - 2.3) Hoffman/IV: Voiding Method Condom Catheter IV Catheter Type [Left INT / Saline Lock Antecubital] IV Catheter Type [Right INT / Saline Lock Forearm] IV Catheter Type [Right Hand] Peripheral IV IV Catheter Type [Right Upper INT / Saline Lock arm] IV Catheter Type [Left Upper Mid-line arm] IV Catheter Type [Left Forearm Peripheral IV ] IV Catheter Type [Left Hand] Peripheral IV IV Catheter Type [Left Wrist] INT / Saline Lock IV Catheter Type [Right Peripheral IV Antecubital] Active Medications - Current Medications Current Medications: Generic Name Dose Route Start Last Admin Trade Name Freq PRN Reason Stop Dose Admin Lipase/Protease/Amylase 1 each 01/09/20 12:01 Nadir Betancourt 10,500 Unit FEEDTUBE PRN PRN For Clogged Feeding Tube Apixaban 5 mg 01/22/20 22:00 03/06/20 21:59 Eliquis PO 5 mg Q12HR CAR Administration Protocol Atorvastatin Calcium 40 mg 01/20/20 22:00 03/06/20 21:59 Lipitor PO 40 mg QHS CAR Administration Clopidogrel Bisulfate 75 mg 01/21/20 06:00 03/06/20 09:25 Plavix PO 75 mg QDAY CAR Administration Dextrose 50 ml 01/31/20 18:51 02/05/20 00:56 D50w (25gm) Syringe IV 50 ml Q30MIN PRN Administration Hypoglycemia Protocol Digoxin 0.125 mg 02/25/20 17:00 03/06/20 17:59 Lanoxin PO 0.125 mg DAILY@1700 CAR Administration Docusate Sodium 100 mg 02/22/20 10:00 03/06/20 21:59 Colace FEEDTUBE 100 mg BID CAR Administration Glycopyrrolate 2 mg 02/24/20 21:00 03/06/20 22:00 Glycopyrrolate PO 2 mg TID CAR Administration Haloperidol Lactate 5 mg 02/10/20 14:20 03/03/20 02:25 Haldol IV 5 mg Q6H PRN Administration Agitation Hydrophilic Ointment 1 applic 01/17/20 15:26 02/24/20 23:20 Vaseline Lip Therapy TP 1 applic DIRECT PRN Administration Dry Lips Insulin Human Regular 0 unit 02/01/20 18:00 03/07/20 00:00 Humulin R SUB-Q Not Given Q6H [facility] Protocol Lansoprazole 30 mg 02/05/20 16:00 03/06/20 09:25 Lansoprazole 30 Mg Solutab FEEDTUBE 30 mg QDAY CAR Administration Metoprolol Tartrate 5 mg 01/11/20 08:00 03/03/20 01:46 Metoprolol IV 5 mg Q6H PRN Administration SEE INSTRUCTIONS Metoprolol Tartrate 12.5 mg 02/28/20 12:00 03/06/20 22:00 Metoprolol FEEDTUBE 12.5 mg BID CAR Administration Midodrine 15 mg 02/04/20 16:00 03/06/20 17:59 Midodrine 5 Mg Tab PO 15 mg TID@0800,1200,1600 CAR Administration Morphine Sulfate 2 mg 01/06/20 15:41 03/03/20 10:05 Morphine 2 Mg/1 Ml Inj IV 2 mg Q4H PRN Administration Pain, Moderate (4-6) Multi-Ingred Cream/Lotion/Oil/Oint 1 applic 02/01/20 15:52 Artificial Tears Ophth Oint OU Q4HR PRN Dry Eye(s) Nitroglycerin 0.4 mg 01/19/20 21:09 01/20/20 03:03 Nitrostat SL 0.4 mg .Q5MIN PRN Administration Chest Pain Ondansetron HCl 4 mg 01/05/20 14:37 03/05/20 20:04 Ondansetron 4 Mg/2 Ml Inj IV 4 mg Q8H PRN Administration Nausea And Vomiting Polyethylene Glycol 17 gm 12/04/19 22:00 03/06/20 22:00 Miralax 3350 PO 17 gm QHS CAR Administration Quetiapine Fumarate 300 mg 01/13/20 22:00 03/06/20 22:00 Seroquel PO 300 mg BID CAR Administration Scopolamine 1 each 01/07/20 20:00 01/07/20 21:08 Transderm-Scop TD 1 each Q72HR CAR Administration Simple Syrup 15 ml 01/09/20 12:01 Simple Syrup FEEDTUBE PRN PRN Hypoglycemia Simple Syrup 30 ml 01/09/20 12:01 Simple Syrup FEEDTUBE PRN PRN Hypoglycemia Sodium Bicarbonate 325 mg 01/09/20 12:01 Sodium Bicarbonate FEEDTUBE PRN PRN For Clogged Feeding Tube Sodium Chloride 10 ml 11/24/19 10:00 03/06/20 22:00 Sodium Chloride Flush Syringe 10 Ml IV 10 ml BID CAR Administration Tamsulosin HCl 0.8 mg 12/20/19 22:00 03/06/20 21:59 Flomax PO 0.8 mg QHS CAR Administration Nutrition/Malnutrition Assess - Dietary Evaluation Nutrition/Malnutrition Findings: Nutrition Notes Start: 11/24/19 12:2 2 Freq: Status: Active Protocol: Document 03/04/20 11:05 EN (Rec: 03/04/20 11:13 EN [id number]) Co-Sign 03/04/20 11:05 LM Nutrition Notes Initial or Follow up Reassessment Current Diagnosis Coronary Artery Disease,Heart Failure,Respiratory Failure, Stroke,Hyperlipidemia Other Pertinent Diagnosis Partial SBO, pneu Current Diet Osmolite 1.5 at 65ml/hr Labs/Tests POC Glu 154 Pertinent Medications Humulin Height 6 ft 2 in Weight 123.8 kg [place] Body Weight (kg) 86.36 BMI 35.0 Weight change and time frame Wt change noted. Weight Status Obese Subjective/Other Information F/u for TF tolerance and Na labs. No new Na labs. TF infusing at goal and pt tolerating well. RN reports no gastric residuals and pt had BM this morning. Percent of energy/protein needs met: 95%/97% Burn Absent Trauma Absent GI Symptoms None Current % PO Negligible Minimum of two criteria Yes Muscle Mass Mild Depletion (non-severe) Fluid Accumulation Mild (non-severe) Reduced Practice Management Consultant Strength Measurably Reduced (severe) #2 Nutrition Diagnosis Malnutrition Diagnosis Progress(for reassessment Continues documentation) #1 Nutrition Diagnosis Inadequate oral intake Diagnosis Progress(for reassessment Continues documentation) Is patient on ventilator? Yes Is Patient Ambulatory and/or Out of Bed No [facility] 2527.860 Kcal/Kg value to use for calculation 17 Approximate Energy Requirements Using 2105 kcal/Kg Calculation Used for Recommendations Kcal/kg Additional Notes Protein needs are 173g ( greater than 2g/kg IBW) Fluid needs are 1 ml/kcal Nutrition Intervention Change Diet Order: Continue TF via PEG Nutrition Support: Osmolite 1.5 at 65 ml/hr. Flush 200 ml q4h. Kcal 2,340 Protein (gm) 98 Fluid (mL) 1,189 Goal #1 Meet at least 75% of pt's energy and protein needs Goal #2 Weight maintenance Anticipated Discharge Needs: unable to determine at this time Follow-Up By: 03/07/20 Additional Comments F/u for TF tolerance, weight and Na lab
[2020-03-07] MEDS: METOPROLOL TARTRATE 25 MG TAB FEEDTUBE SCH ×2 (09:05→21:48)
[2020-03-07] MEDS: GLYCOPYRROLATE 2 MG TAB PO SCH ×3 (09:11→20:12)
[2020-03-07] MEDS: CLOPIDOGREL 75 MG TAB PO SCH (09:11)
[2020-03-07] MEDS: APIXABAN 5 MG TAB PO SCH ×2 (09:11→21:47)
[2020-03-07] MEDS: LANSOPRAZOLE 30 MG SOLUTAB FEEDTUBE SCH (09:11)
[2020-03-07] MEDS: QUEtiapine 100 MG TAB PO SCH ×2 (09:11→21:49)
[2020-03-07] MEDS: DOCUSATE SODIUM 100 MG/10 ML ORAL LIQD FEEDTUBE SCH ×2 (09:11→21:47)
[2020-03-07] MEDS: INSULIN REGULAR, HUMAN 100 UNIT/ML 3ML VIAL SUB-Q SCH ×4 (09:12→18:44)
[2020-03-07] MEDS: MIDODRINE 5 MG TAB PO SCH ×3 (09:19→17:22)
--- NOTE | 2020-03-07 11:41 | Progress Note ---
Assessment and Plan Chest pain, resolved LHC done 01/22/20 widely patent previous LAD stent. We found mild nonobstructive atherosclerosis of the mid right coronary artery. Otherwise the rest of the coronary system was without significant atherosclerosis. LVEF 40 to 45%. There was some hypokinesis of the basal inferior wall suggestive of previous or recent infarct. ECG done 01/19/20 shows sinus rhythm with low voltage QRS and subtle ST segment elevations in the inferolateral leads that suggested possible concern for an acute injury at that time. Atrial fibrillation, rate control on digoxin and low dose metoprolol amiodarone discontinued due to liver transaminases Ischemic Cardiomyopathy re-echo this presentation reports an LVEF 40-45%. Hx of CAD Multifocal pneumonia negative COVID-19 test x 3 Chronic Respiratory failure s/p trach History of COPD Acute PE/DVT -on Eliquis Anemia Partial SBO vs ileus Conservative cardiac management. Will follow intermittently. Subjective Date of service: 03/07/20 Principal diagnosis: Ac hypoxemic resp failure; Pneumonia; PUI COVID-19; CHF; COPD; HTN Interval history: Atrial fibrillation with a well controlled ventricular rate on telemetry. Objective Vital Signs Temp Pulse Resp BP Pulse Ox Pulse Ox 03/07/20 11:14 107 H 97/76 99 03/07/20 11:00 103 H 16 97/76 98 03/07/20 10:00 117 H 18 108/85 97 03/07/20 09:00 114 H 24 109/77 96 03/07/20 08:08 121 H 99/71 99 03/07/20 08:00 97.5 F L 109 H 18 99/71 98 03/07/20 07:00 122 H 26 H 103/77 97 03/07/20 06:00 113 H 17 103/77 98 03/07/20 05:00 109 H 19 103/79 99 03/07/20 04:14 113 H 03/07/20 04:13 116 H 127/77 96 98 03/07/20 04:00 97.9 F 111 H 20 128/77 96 03/07/20 03:00 120 H 22 109/85 97 03/07/20 02:00 123 H 30 H 104/81 95 03/07/20 01:00 130 H 28 H 116/80 98 03/07/20 00:09 116 H 03/07/20 00:00 97.5 F L 117 H 24 110/70 99 03/06/20 23:47 127 H 108/80 99 99 03/06/20 23:00 107 H 16 118/88 99 03/06/20 22:00 124 H 22 118/88 100 03/06/20 21:00 109 H 20 102/81 99 03/06/20 20:43 111 H 102/81 98 100 03/06/20 20:29 97.5 F L 03/06/20 20:00 113 H 15 102/81 99 03/06/20 19:54 116 H 18 111/71 99 03/06/20 19:00 98 H 19 111/71 99 03/06/20 18:56 112 H 03/06/20 18:00 117 H 19 112/83 100 03/06/20 17:00 121 H 18 112/83 99 03/06/20 16:21 97 03/06/20 16:00 97.4 F L 120 H 18 108/80 99 03/06/20 15:36 131 H 108/80 100 03/06/20 15:00 101 H 18 108/80 100 03/06/20 14:00 111 H 17 112/87 98 03/06/20 13:00 108 H 21 112/87 99 03/06/20 12:00 97.4 F L 108 H 17 102/80 99 - Physical Examination General: Other (s/p trach) HEENT: Positive: PERRL Neck: Positive: Other (s/p trach) Cardiac: Positive: irregularly irregular Neuro: Positive: Weakness Abdomen: Positive: Soft Skin: Positive: Clear Extremities: Absent: edema - Allied health notes Allied health notes reviewed: RT
[2020-03-07] MEDS: LIPASE 10,500/PROTEASE 25,000/AMYLASE 43,750 (UNITS) DR CAP FEEDTUBE PRN (12:56)
--- NOTE | 2020-03-07 13:21 | Event Note ---
Date: 03/07/20 Called by patient's RN to inform me that PEG tube is clogged and not functioning. Unable to administer any fluid through PEG or aspirate. PEG eval uated and bumper still at 4cm at the skin. PEG site is c/d/i. PEG tubing filled with semisolid tube feed. PEG tubing stipped and all semi solid TF cast removed. PEG reassembled and easily flushes with water and can aspirate. OK to resume use of PEG. RN at bedside. Patient tolerated well.
--- NOTE | 2020-03-07 14:06 | Progress Note ---
Assessment and Plan Patient admitted for acute hypoxic respiratory failure, S/P tracheostomy.Patient sleeping. Resting on assist control mechanical ventilation, rate 12,Tidal volume 450, FIO2 30%, PEEP 6 and O2 saturation running 99%. ABG FIO2 30%. ABG pH 7.461 pH Units (7.350-7.450) H 02/20/20 06:45 POC ABG pCO2 34.8 mmHg (32.0-48.0) 02/11/20 14:11 ABG pCO2 47.8 mm Hg 02/20/20 06:45 POC ABG pO2 77.7 mmHg (83-108) L 02/11/20 14:11 ABG pO2 88.7 mm Hg (80.0-90.0) 02/20/20 06:45 POC ABG HCO3 26.7 02/11/20 14:11 ABG O2 Saturation 97.2 % (95.0-99.0) 02/20/20 06:45 Patient afebrile. No leukocytosis. Chest xray done 03/01/20 reported Essentially unchanged airspace disease when compared to 02/18/2020. Patient presently not on any antibiotics. Patient is on Apixaban and prevacid. I spent critical care time of 35 minutes on this patient review the chart, obta in history , examining the patient, review chest xray, labs, talking to the nursing staff and respiratory therapy and work out plan of treatment un this critically ill patient. - Patient Problems (1) Acute respiratory failure Current Visit: Yes Status: Acute Plan to address problem: Patient is on mechanical ventilation assist control, rate 12, tidal volume 450,, FIO2 30%, PEEP 6. Albuterol/atrovent aerosol treatments. Continue apixaban Continue prevacid. (2) COPD exacerbation Current Visit: No Status: Acute Plan to address problem: Patient is on mechanical ventilation assist control, rate 12, tidal volume 450,, FIO2 30%, PEEP 6. Albuterol/atrovent aerosol treatments. Continue apixaban Continue Prevacid (3) Bilateral pneumonia Current Visit: Yes Status: Acute Plan to address problem: Chest xray 03/01/20 Essentially unchanged airspace disease when compared to 02/18/2020. Patient afebrile. No leukocytosis. (4) CHF exacerbation Current Visit: Yes Status: Acute Plan to address problem: Management as per cardiology. (5) Cardiomyopathy Current Visit: Yes Status: Acute Plan to address problem: Management as per cardiology. (6) Pancreatic lesion Current Visit: Yes Status: Acute Plan to address problem: Management as per primary care. (7) Paroxysmal atrial fibrillation Current Visit: Yes Status: Acute Plan to address problem: Patient is on apixaban. Management as per cardiology. (8) CVA (cerebral vascular accident) Current Visit: No Status: Acute Qualifiers: Precerebral and cerebral artery: middle cerebral artery Laterality of affected vessel: right Plan to address problem: Management as per primary care. (9) Cocaine dependence Current Visit: No Status: Acute Plan to address problem: Management as per primary care. (10) HTN (hypertension) Current Visit: No Status: Acute Qualifiers: Hypertension type: essential hypertension Qualified Code(s): I10 - Essential (primary) hypertension Plan to address problem: Management as per primary care. (11) Nicotine dependence Current Visit: No Status: Acute Qualifiers: Nicotine product type: cigarettes Substance use status: in withdrawal Qualified Code(s): F17.213 - Nicotine dependence, cigarettes, with withdrawal Plan to address problem: Counseled to stop smoking. (12) Obesity hypoventilation syndrome Current Visit: No Status: Acute Plan to address problem: Pagient S/P tracheostomy and on mechanical ventilation. Subjective Date of service: 03/07/20 Principal diagnosis: Ac hypoxemic resp failure; Pneumonia; PUI COVID-19; CHF; COPD; HTN Interval history: Patient admitted for acute hypoxic respiratory failure, S/P tracheostomy.Patient sleeping. Resting on assist control mechanical ventilation, rate 12,Tidal volume 450, FIO2 30%, PEEP 6 and O2 saturation running 99%. ABG FIO2 30%. ABG pH 7.461 pH Units (7.350-7.450) H 02/20/20 06:45 POC ABG pCO2 34.8 mmHg (32.0-48.0) 02/11/20 14:11 ABG pCO2 47.8 mm Hg 02/20/20 06:45 POC ABG pO2 77.7 mmHg (83-108) L 02/11/20 14:11 ABG pO2 88.7 mm Hg (80.0-90.0) 02/20/20 06:45 POC ABG HCO3 26.7 02/11/20 14:11 ABG O2 Saturation 97.2 % (95.0-99.0) 02/20/20 06:45 Patient afebrile. No leukocytosis. Chest xray done 03/01/20 reported Essentially unchanged airspace disease when compared to 02/18/2020. Patient presently not on any antibiotics. Patient is on Apixaban and prevacid. Objective Vital Signs - 12hr 03/07/20 03/07/20 03/07/20 03:00 04:00 04:13 Temperature 97.9 F Pulse Rate 120 H 111 H 116 H Respiratory 22 20 Rate Blood Pressure 109/85 128/77 127/77 O2 Sat by Pulse 97 96 96 Oximetry O2 Sat by Pulse 98 Oximetry [ Assessment] 03/07/20 03/07/20 03/07/20 04:14 05:00 06:00 Temperature Pulse Rate 113 H 109 H 113 H Respiratory 19 17 Rate Blood Pressure 103/79 103/77 O2 Sat by Pulse 99 98 Oximetry O2 Sat by Pulse Oximetry [ Assessment] 03/07/20 03/07/20 03/07/20 07:00 08:00 08:08 Temperature 97.5 F L Pulse Rate 122 H 109 H 121 H Respiratory 26 H 18 Rate Blood Pressure 103/77 99/71 99/71 O2 Sat by Pulse 97 98 99 Oximetry O2 Sat by Pulse Oximetry [ Assessment] 03/07/20 03/07/20 03/07/20 09:00 10:00 11:00 Temperature Pulse Rate 114 H 117 H 103 H Respiratory 24 18 16 Rate Blood Pressure 109/77 108/85 97/76 O2 Sat by Pulse 96 97 98 Oximetry O2 Sat by Pulse Oximetry [ Assessment] 03/07/20 03/07/20 03/07/20 11:14 12:00 13:00 Temperature 97.5 F L Pulse Rate 107 H 116 H 118 H Respiratory 18 19 Rate Blood Pressure 97/76 108/68 108/68 O2 Sat by Pulse 99 99 97 Oximetry O2 Sat by Pulse Oximetry [ Assessment] Constitutional: no acute distress, asleep, other (Patient is resting on mechanical ventilation, awake and makes needs know by mouthing words and phonating around trach) Eyes: non-icteric ENT: oropharynx moist, other (+ midline tracheostomy) Neck: supple, no JVD Effort: mildly labored Ascultation: Bilateral: diminished breath sounds, rhonchi (scant), other (mild tracheal secretions ) Percussion: Bilateral: not dull Cardiovascular: irregular rhythm Gastrointestinal: normoactive bowel sounds, soft, non-tender, non-distended, other (protuberant; PEG in place) Integumentary: normal Extremities: no cyanosis, pulses normal, no ischemia or petechiae, edema (bilateral lower extemities) Neurologic: non-focal exam (moves extremities), pupils equal and round, other (Patient sleeping.) Psychiatric: mood appropriate, anxious, other CBC and BMP: 03/04/20 20:38 03/04/20 20:38 ABG, PT/INR, D-dimer: ABG ABG pH 7.461 pH Units (7.350-7.450) H 02/20/20 06:45 POC ABG pCO2 34.8 mmHg (32.0-48.0) 02/11/20 14:11 ABG pCO2 47.8 mm Hg 02/20/20 06:45 POC ABG pO2 77.7 mmHg (83-108) L 02/11/20 14:11 ABG pO2 88.7 mm Hg (80.0-90.0) 02/20/20 06:45 POC ABG HCO3 26.7 02/11/20 14:11 ABG O2 Saturation 97.2 % (95.0-99.0) 02/20/20 06:45 PT/INR, D-dimer PT 27.0 Sec. (12.2-14.9) H 02/07/20 15:03 INR 2.46 (0.87-1.13) H 02/07/20 15:03 Abnormal lab findings: Abnormal Labs 11/24/19 11/24/19 11/24/19 02:53 02:53 03:45 WBC 14.3 H RBC Hgb Hct MCHC RDW 17.2 H MCV MCH Lymph % (Auto) Miller % (Auto) Miller # Eos # Lymph # (Auto) Miller # (Auto) Eos # (Auto) Seg Neutrophils % Seg Neuts % (Manual) Baso # (Auto) Lymphocytes % (Manual) Monocytes % (Manual) Eosinophils % (Manual) Basophils % (Manual) Seg Neutrophils # Seg Neutrophils # Man 8.3 H Lymphocytes # (Manual) Monocytes # (Manual) 0.9 H Eosinophils # (Manual) Nucleated RBC % Basophils # (Manual) PT INR APTT Heparin Anti-Xa Level ABG pH 7.313 L POC ABG pO2 ABG pO2 102.8 H ABG HCO3 ABG O2 Saturation ABG Base Excess -2.9 L POC ABG pCO2 ABG Hemoglobin ABG Oxyhemoglobin ABG Chloride ABG Glucose Oxyhemoglobin 93.9 L Sodium Potassium Chloride Carbon Dioxide BUN Creatinine Glucose 195 H POC Glucose Lactic Acid Calcium Phosphorus Magnesium AST ALT Lactate Dehydrogenase Total Bilirubin Direct Bilirubin CK-MB (CK-2) 4.3 H C-Reactive Protein NT-Pro-B Natriuret Pep 1181 H Total Protein Albumin Arterial Blood Glucose Urine WBC (Auto) Urine Creatinine 11/24/19 11/24/19 11/24/19 04:53 04:53 10:37 WBC RBC Hgb Hct MCHC RDW MCV MCH Lymph % (Auto) Miller % (Auto) Miller # Eos # Lymph # (Auto) Miller # (Auto) Eos # (Auto) Seg Neutrophils % Seg Neuts % (Manual) Baso # (Auto) Lymphocytes % (Manual) Monocytes % (Manual) Eosinophils % (Manual) Basophils % (Manual) Seg Neutrophils # Seg Neutrophils # Man Lymphocytes # (Manual) Monocytes # (Manual) Eosinophils # (Manual) Nucleated RBC % Basophils # (Manual) PT INR APTT Heparin Anti-Xa Level ABG pH POC ABG pO2 ABG pO2 ABG HCO3 ABG O2 Saturation ABG Base Excess POC ABG pCO2 ABG Hemoglobin ABG Oxyhemoglobin ABG Chloride ABG Glucose Oxyhemoglobin Sodium Potassium Chloride Carbon Dioxide BUN Creatinine Glucose 162 H POC Glucose Lactic Acid 2.40 H* 2.50 H* Calcium Phosphorus Magnesium AST ALT Lactate Dehydrogenase 240 H Total Bilirubin Direct Bilirubin CK-MB (CK-2) C-Reactive Protein NT-Pro-B Natriuret Pep Total Protein Albumin Arterial Blood Glucose Urine WBC (Auto) Urine Creatinine 11/24/19 11/24/19 11/24/19 12:21 14:50 19:54 WBC RBC Hgb Hct MCHC RDW MCV MCH Lymph % (Auto) Miller % (Auto) Miller # Eos # Lymph # (Auto) Miller # (Auto) Eos # (Auto) Seg Neutrophils % Seg Neuts % (Manual) Baso # (Auto) Lymphocytes % (Manual) Monocytes % (Manual) Eosinophils % (Manual) Basophils % (Manual) Seg Neutrophils # Seg Neutrophils # Man Lymphocytes # (Manual) Monocytes # (Manual) Eosinophils # (Manual) Nucleated RBC % Basophils # (Manual) PT INR APTT Heparin Anti-Xa Level ABG pH POC ABG pO2 ABG pO2 ABG HCO3 ABG O2 Saturation ABG Base Excess POC ABG pCO2 ABG Hemoglobin ABG Oxyhemoglobin ABG Chloride ABG Glucose Oxyhemoglobin Sodium Potassium Chloride Carbon Dioxide BUN Creatinine Glucose POC Glucose 145 H 143 H 124 H Lactic Acid Calcium Phosphorus Magnesium AST ALT Lactate Dehydrogenase Total Bilirubin Direct Bilirubin CK-MB (CK-2) C-Reactive Protein NT-Pro-B Natriuret Pep Total Protein Albumin Arterial Blood Glucose Urine WBC (Auto) Urine Creatinine 11/25/19 11/25/19 11/25/19 00:18 03:18 05:11 WBC 13.7 H RBC Hgb Hct MCHC RDW 17.1 H MCV MCH Lymph % (Auto) 10.8 L Miller % (Auto) 8.7 H Miller # 1.2 H Eos # Lymph # (Auto) Miller # (Auto) Eos # (Auto) Seg Neutrophils % 80.2 H Seg Neuts % (Manual) Baso # (Auto) Lymphocytes % (Manual) Monocytes % (Manual) Eosinophils % (Manual) Basophils % (Manual) Seg Neutrophils # 11.0 H Seg Neutrophils # Man Lymphocytes # (Manual) Monocytes # (Manual) Eosinophils # (Manual) Nucleated RBC % Basophils # (Manual) PT INR APTT Heparin Anti-Xa Level ABG pH 7.333 L POC ABG pO2 ABG pO2 61.2 L ABG HCO3 ABG O2 Saturation 90.2 L ABG Base Excess POC ABG pCO2 ABG Hemoglobin 13.7 L ABG Oxyhemoglobin ABG Chloride ABG Glucose Oxyhemoglobin 88.2 L Sodium Potassium Chloride Carbon Dioxide BUN Creatinine Glucose POC Glucose 109 H Lactic Acid Calcium Phosphorus Magnesium AST ALT Lactate Dehydrogenase Total Bilirubin Direct Bilirubin CK-MB (CK-2) C-Reactive Protein NT-Pro-B Natriuret Pep Total Protein Albumin Arterial Blood Glucose Urine WBC (Auto) Urine Creatinine 11/25/19 11/25/19 11/26/19 05:11 11:40 03:12 WBC RBC Hgb Hct MCHC RDW MCV MCH Lymph % (Auto) Miller % (Auto) Miller # Eos # Lymph # (Auto) Miller # (Auto) Eos # (Auto) Seg Neutrophils % Seg Neuts % (Manual) Baso # (Auto) Lymphocytes % (Manual) Monocytes % (Manual) Eosinophils % (Manual) Basophils % (Manual) Seg Neutrophils # Seg Neutrophils # Man Lymphocytes # (Manual) Monocytes # (Manual) Eosinophils # (Manual) Nucleated RBC % Basophils # (Manual) PT INR APTT Heparin Anti-Xa Level ABG pH POC ABG pO2 ABG pO2 155.1 H ABG HCO3 27.8 H ABG O2 Saturation ABG Base Excess POC ABG pCO2 ABG Hemoglobin 12.2 L ABG Oxyhemoglobin ABG Chloride ABG Glucose Oxyhemoglobin Sodium Potassium Chloride Carbon Dioxide BUN 23 H Creatinine Glucose 110 H POC Glucose 108 H Lactic Acid Calcium Phosphorus Magnesium AST ALT Lactate Dehydrogenase Total Bilirubin Direct Bilirubin CK-MB (CK-2) C-Reactive Protein NT-Pro-B Natriuret Pep Total Protein Albumin Arterial Blood Glucose Urine WBC (Auto) Urine Creatinine 11/26/19 11/26/19 11/26/19 06:17 10:43 10:43 WBC 11.4 H RBC Hgb Hct MCHC RDW 17.1 H MCV MCH Lymph % (Auto) Miller % (Auto) Miller # Eos # Lymph # (Auto) Miller # (Auto) Eos # (Auto) Seg Neutrophils % Seg Neuts % (Manual) Baso # (Auto) Lymphocytes % (Manual) Monocytes % (Manual) Eosinophils % (Manual) Basophils % (Manual) Seg Neutrophils # Seg Neutrophils # Man Lymphocytes # (Manual) Monocytes # (Manual) Eosinophils # (Manual) Nucleated RBC % Basophils # (Manual) PT INR APTT Heparin Anti-Xa Level ABG pH POC ABG pO2 ABG pO2 ABG HCO3 ABG O2 Saturation ABG Base Excess POC ABG pCO2 ABG Hemoglobin ABG Oxyhemoglobin ABG Chloride ABG Glucose Oxyhemoglobin Sodium Potassium Chloride Carbon Dioxide BUN 29 H Creatinine Glucose POC Glucose 107 H Lactic Acid Calcium Phosphorus Magnesium AST ALT Lactate Dehydrogenase Total Bilirubin Direct Bilirubin CK-MB (CK-2) C-Reactive Protein NT-Pro-B Natriuret Pep Total Protein Albumin Arterial Blood Glucose Urine WBC (Auto) Urine Creatinine 11/26/19 11/27/19 11/27/19 17:11 01:53 04:11 WBC RBC Hgb Hct MCHC RDW MCV MCH Lymph % (Auto) Miller % (Auto) Miller # Eos # Lymph # (Auto) Miller # (Auto) Eos # (Auto) Seg Neutrophils % Seg Neuts % (Manual) Baso # (Auto) Lymphocytes % (Manual) Monocytes % (Manual) Eosinophils % (Manual) Basophils % (Manual) Seg Neutrophils # Seg Neutrophils # Man Lymphocytes # (Manual) Monocytes # (Manual) Eosinophils # (Manual) Nucleated RBC % Basophils # (Manual) PT INR APTT Heparin Anti-Xa Level ABG pH POC ABG pO2 ABG pO2 ABG HCO3 29.2 H ABG O2 Saturation ABG Base Excess 3.4 H POC ABG pCO2 ABG Hemoglobin 13.3 L ABG Oxyhemoglobin ABG Chloride ABG Glucose Oxyhemoglobin 94.5 L Sodium Potassium Chloride Carbon Dioxide BUN Creatinine Glucose POC Glucose 113 H 108 H Lactic Acid Calcium Phosphorus Magnesium AST ALT Lactate Dehydrogenase Total Bilirubin Direct Bilirubin CK-MB (CK-2) C-Reactive Protein NT-Pro-B Natriuret Pep Total Protein Albumin Arterial Blood Glucose Urine WBC (Auto) Urine Creatinine 11/27/19 11/28/19 11/28/19 05:27 05:00 05:25 WBC RBC Hgb Hct MCHC RDW MCV MCH Lymph % (Auto) Miller % (Auto) Miller # Eos # Lymph # (Auto) Miller # (Auto) Eos # (Auto) Seg Neutrophils % Seg Neuts % (Manual) Baso # (Auto) Lymphocytes % (Manual) Monocytes % (Manual) Eosinophils % (Manual) Basophils % (Manual) Seg Neutrophils # Seg Neutrophils # Man Lymphocytes # (Manual) Monocytes # (Manual) Eosinophils # (Manual) Nucleated RBC % Basophils # (Manual) PT INR APTT Heparin Anti-Xa Level ABG pH POC ABG pO2 68.1 L ABG pO2 ABG HCO3 ABG O2 Saturation ABG Base Excess POC ABG pCO2 ABG Hemoglobin ABG Oxyhemoglobin 91.2 L ABG Chloride ABG Glucose Oxyhemoglobin Sodium Potassium Chloride Carbon Dioxide BUN Creatinine Glucose POC Glucose 111 H 110 H Lactic Acid Calcium Phosphorus Magnesium AST ALT Lactate Dehydrogenase Total Bilirubin Direct Bilirubin CK-MB (CK-2) C-Reactive Protein NT-Pro-B Natriuret Pep Total Protein Albumin Arterial Blood Glucose Urine WBC (Auto) Urine Creatinine 11/28/19 11/28/19 11/28/19 12:08 13:47 13:47 WBC 11.3 H RBC Hgb Hct MCHC RDW 16.1 H MCV MCH Lymph % (Auto) Miller % (Auto) 9.9 H Miller # 1.1 H Eos # Lymph # (Auto) Miller # (Auto) Eos # (Auto) Seg Neutrophils % 71.4 H Seg Neuts % (Manual) Baso # (Auto) Lymphocytes % (Manual) Monocytes % (Manual) Eosinophils % (Manual) Basophils % (Manual) Seg Neutrophils # 8.1 H Seg Neutrophils # Man Lymphocytes # (Manual) Monocytes # (Manual) Eosinophils # (Manual) Nucleated RBC % Basophils # (Manual) PT INR APTT Heparin Anti-Xa Level ABG pH POC ABG pO2 ABG pO2 ABG HCO3 ABG O2 Saturation ABG Base Excess POC ABG pCO2 ABG Hemoglobin ABG Oxyhemoglobin ABG Chloride ABG Glucose Oxyhemoglobin Sodium Potassium Chloride Carbon Dioxide BUN 23 H Creatinine Glucose 123 H POC Glucose 112 H Lactic Acid Calcium Phosphorus Magnesium AST ALT Lactate Dehydrogenase Total Bilirubin Direct Bilirubin CK-MB (CK-2) C-Reactive Protein NT-Pro-B Natriuret Pep Total Protein Albumin 3.7 L Arterial Blood Glucose Urine WBC (Auto) Urine Creatinine 11/28/19 11/29/19 11/29/19 17:26 03:55 17:04 WBC RBC Hgb Hct MCHC RDW MCV MCH Lymph % (Auto) Miller % (Auto) Miller # Eos # Lymph # (Auto) Miller # (Auto) Eos # (Auto) Seg Neutrophils % Seg Neuts % (Manual) Baso # (Auto) Lymphocytes % (Manual) Monocytes % (Manual) Eosinophils % (Manual) Basophils % (Manual) Seg Neutrophils # Seg Neutrophils # Man Lymphocytes # (Manual) Monocytes # (Manual) Eosinophils # (Manual) Nucleated RBC % Basophils # (Manual) PT INR APTT Heparin Anti-Xa Level ABG pH POC ABG pO2 ABG pO2 65.7 L ABG HCO3 28.3 H ABG O2 Saturation 93.9 L ABG Base Excess 3.6 H POC ABG pCO2 ABG Hemoglobin 13.3 L ABG Oxyhemoglobin ABG Chloride ABG Glucose Oxyhemoglobin 91.5 L Sodium Potassium Chloride Carbon Dioxide BUN Creatinine Glucose POC Glucose 123 H 119 H Lactic Acid Calcium Phosphorus Magnesium AST ALT Lactate Dehydrogenase Total Bilirubin Direct Bilirubin CK-MB (CK-2) C-Reactive Protein NT-Pro-B Natriuret Pep Total Protein Albumin Arterial Blood Glucose Urine WBC (Auto) Urine Creatinine 11/30/19 11/30/19 11/30/19 04:17 04:17 04:56 WBC 13.4 H RBC Hgb Hct MCHC RDW 15.6 H MCV MCH Lymph % (Auto) Miller % (Auto) Miller # Eos # Lymph # (Auto) Miller # (Auto) Eos # (Auto) Seg Neutrophils % Seg Neuts % (Manual) Baso # (Auto) Lymphocytes % (Manual) Monocytes % (Manual) Eosinophils % (Manual) Basophils % (Manual) Seg Neutrophils # Seg Neutrophils # Man Lymphocytes # (Manual) Monocytes # (Manual) Eosinophils # (Manual) Nucleated RBC % Basophils # (Manual) PT INR APTT Heparin Anti-Xa Level ABG pH POC ABG pO2 ABG pO2 56.3 L ABG HCO3 29.3 H ABG O2 Saturation 91.5 L ABG Base Excess 4.7 H POC ABG pCO2 ABG Hemoglobin 12.1 L ABG Oxyhemoglobin ABG Chloride ABG Glucose Oxyhemoglobin 89.2 L Sodium 147 H Potassium Chloride Carbon Dioxide BUN 30 H Creatinine Glucose 124 H POC Glucose Lactic Acid Calcium Phosphorus Magnesium AST ALT Lactate Dehydrogenase Total Bilirubin Direct Bilirubin CK-MB (CK-2) C-Reactive Protein NT-Pro-B Natriuret Pep Total Protein Albumin 3.8 L Arterial Blood Glucose Urine WBC (Auto) Urine Creatinine 11/30/19 11/30/19 11/30/19 05:51 11:54 18:17 WBC RBC Hgb Hct MCHC RDW MCV MCH Lymph % (Auto) Miller % (Auto) Miller # Eos # Lymph # (Auto) Miller # (Auto) Eos # (Auto) Seg Neutrophils % Seg Neuts % (Manual) Baso # (Auto) Lymphocytes % (Manual) Monocytes % (Manual) Eosinophils % (Manual) Basophils % (Manual) Seg Neutrophils # Seg Neutrophils # Man Lymphocytes # (Manual) Monocytes # (Manual) Eosinophils # (Manual) Nucleated RBC % Basophils # (Manual) PT INR APTT Heparin Anti-Xa Level ABG pH POC ABG pO2 ABG pO2 ABG HCO3 ABG O2 Saturation ABG Base Excess POC ABG pCO2 ABG Hemoglobin ABG Oxyhemoglobin ABG Chloride ABG Glucose Oxyhemoglobin Sodium Potassium Chloride Carbon Dioxide BUN Creatinine Glucose POC Glucose 127 H 115 H 143 H Lactic Acid Calcium Phosphorus Magnesium AST ALT Lactate Dehydrogenase Total Bilirubin Direct Bilirubin CK-MB (CK-2) C-Reactive Protein NT-Pro-B Natriuret Pep Total Protein Albumin Arterial Blood Glucose Urine WBC (Auto) Urine Creatinine 12/01/19 12/01/1911/30/20 01:18 05:22 12:16 WBC RBC Hgb Hct MCHC RDW MCV MCH Lymph % (Auto) Miller % (Auto) Miller # Eos # Lymph # (Auto) Miller # (Auto) Eos # (Auto) Seg Neutrophils % Seg Neuts % (Manual) Baso # (Auto) Lymphocytes % (Manual) Monocytes % (Manual) Eosinophils % (Manual) Basophils % (Manual) Seg Neutrophils # Seg Neutrophils # Man Lymphocytes # (Manual) Monocytes # (Manual) Eosinophils # (Manual) Nucleated RBC % Basophils # (Manual) PT INR APTT Heparin Anti-Xa Level ABG pH POC ABG pO2 ABG pO2 ABG HCO3 ABG O2 Saturation ABG Base Excess POC ABG pCO2 ABG Hemoglobin ABG Oxyhemoglobin ABG Chloride ABG Glucose Oxyhemoglobin Sodium Potassium 3.5 L Chloride 107.8 H Carbon Dioxide BUN 37 H Creatinine Glucose 157 H POC Glucose 118 H 148 H Lactic Acid Calcium 8.2 L D Phosphorus Magnesium AST 48 H ALT 60 H Lactate Dehydrogenase 194 H Total Bilirubin Direct Bilirubin CK-MB (CK-2) C-Reactive Protein 8.50 H NT-Pro-B Natriuret Pep Total Protein 5.5 L Albumin 2.8 L Arterial Blood Glucose Urine WBC (Auto) Urine Creatinine 12/01/19 12/02/19 12/02/19 18:04 00:05 05:16 WBC 11.4 H RBC Hgb Hct MCHC RDW 15.9 H MCV MCH Lymph % (Auto) Miller % (Auto) 9.9 H Miller # 1.1 H Eos # Lymph # (Auto) Miller # (Auto) Eos # (Auto) Seg Neutrophils % 70.3 H Seg Neuts % (Manual) Baso # (Auto) Lymphocytes % (Manual) Monocytes % (Manual) Eosinophils % (Manual) Basophils % (Manual) Seg Neutrophils # 8.0 H Seg Neutrophils # Man Lymphocytes # (Manual) Monocytes # (Manual) Eosinophils # (Manual) Nucleated RBC % Basophils # (Manual) PT INR APTT Heparin Anti-Xa Level ABG pH POC ABG pO2 ABG pO2 ABG HCO3 ABG O2 Saturation ABG Base Excess POC ABG pCO2 ABG Hemoglobin ABG Oxyhemoglobin ABG Chloride ABG Glucose Oxyhemoglobin Sodium Potassium Chloride Carbon Dioxide BUN Creatinine Glucose POC Glucose 143 H 107 H Lactic Acid Calcium Phosphorus Magnesium AST ALT Lactate Dehydrogenase Total Bilirubin Direct Bilirubin CK-MB (CK-2) C-Reactive Protein NT-Pro-B Natriuret Pep Total Protein Albumin Arterial Blood Glucose Urine WBC (Auto) Urine Creatinine 12/02/19 12/02/19 12/02/19 05:16 06:03 11:52 WBC RBC Hgb Hct MCHC RDW MCV MCH Lymph % (Auto) Miller % (Auto) Miller # Eos # Lymph # (Auto) Miller # (Auto) Eos # (Auto) Seg Neutrophils % Seg Neuts % (Manual) Baso # (Auto) Lymphocytes % (Manual) Monocytes % (Manual) Eosinophils % (Manual) Basophils % (Manual) Seg Neutrophils # Seg Neutrophils # Man Lymphocytes # (Manual) Monocytes # (Manual) Eosinophils # (Manual) Nucleated RBC % Basophils # (Manual) PT INR APTT Heparin Anti-Xa Level ABG pH POC ABG pO2 ABG pO2 ABG HCO3 ABG O2 Saturation ABG Base Excess POC ABG pCO2 ABG Hemoglobin ABG Oxyhemoglobin ABG Chloride ABG Glucose Oxyhemoglobin Sodium 146 H Potassium Chloride Carbon Dioxide BUN 28 H Creatinine Glucose 123 H POC Glucose 110 H 152 H Lactic Acid Calcium Phosphorus Magnesium AST ALT Lactate Dehydrogenase Total Bilirubin Direct Bilirubin CK-MB (CK-2) C-Reactive Protein NT-Pro-B Natriuret Pep Total Protein Albumin Arterial Blood Glucose Urine WBC (Auto) Urine Creatinine 12/02/19 12/02/19 12/02/19 12:58 17:58 23:36 WBC RBC Hgb Hct MCHC RDW MCV MCH Lymph % (Auto) Miller % (Auto) Miller # Eos # Lymph # (Auto) Miller # (Auto) Eos # (Auto) Seg Neutrophils % Seg Neuts % (Manual) Baso # (Auto) Lymphocytes % (Manual) Monocytes % (Manual) Eosinophils % (Manual) Basophils % (Manual) Seg Neutrophils # Seg Neutrophils # Man Lymphocytes # (Manual) Monocytes # (Manual) Eosinophils # (Manual) Nucleated RBC % Basophils # (Manual) PT INR APTT Heparin Anti-Xa Level ABG pH POC ABG pO2 78.1 L ABG pO2 ABG HCO3 ABG O2 Saturation ABG Base Excess POC ABG pCO2 ABG Hemoglobin ABG Oxyhemoglobin ABG Chloride ABG Glucose Oxyhemoglobin Sodium Potassium Chloride Carbon Dioxide BUN Creatinine Glucose POC Glucose 120 H 123 H Lactic Acid Calcium Phosphorus Magnesium AST ALT Lactate Dehydrogenase Total Bilirubin Direct Bilirubin CK-MB (CK-2) C-Reactive Protein NT-Pro-B Natriuret Pep Total Protein Albumin Arterial Blood Glucose Urine WBC (Auto) Urine Creatinine 12/03/19 12/03/19 12/03/19 06:03 06:14 11:46 WBC RBC Hgb Hct MCHC RDW MCV MCH Lymph % (Auto) Miller % (Auto) Miller # Eos # Lymph # (Auto) Miller # (Auto) Eos # (Auto) Seg Neutrophils % Seg Neuts % (Manual) Baso # (Auto) Lymphocytes % (Manual) Monocytes % (Manual) Eosinophils % (Manual) Basophils % (Manual) Seg Neutrophils # Seg Neutrophils # Man Lymphocytes # (Manual) Monocytes # (Manual) Eosinophils # (Manual) Nucleated RBC % Basophils # (Manual) PT INR APTT Heparin Anti-Xa Level ABG pH POC ABG pO2 ABG pO2 ABG HCO3 ABG O2 Saturation ABG Base Excess POC ABG pCO2 ABG Hemoglobin ABG Oxyhemoglobin ABG Chloride ABG Glucose Oxyhemoglobin Sodium Potassium Chloride Carbon Dioxide BUN Creatinine Glucose POC Glucose 142 H 130 H Lactic Acid Calcium Phosphorus Magnesium AST ALT Lactate Dehydrogenase Total Bilirubin Direct Bilirubin CK-MB (CK-2) C-Reactive Protein NT-Pro-B Natriuret Pep Total Protein Albumin Arterial Blood Glucose Urine WBC (Auto) 8.0 H Urine Creatinine 12/03/19 12/03/19 12/04/19 15:50 17:39 00:04 WBC RBC Hgb Hct MCHC RDW MCV MCH Lymph % (Auto) Miller % (Auto) Miller # Eos # Lymph # (Auto) Miller # (Auto) Eos # (Auto) Seg Neutrophils % Seg Neuts % (Manual) Baso # (Auto) Lymphocytes % (Manual) Monocytes % (Manual) Eosinophils % (Manual) Basophils % (Manual) Seg Neutrophils # Seg Neutrophils # Man Lymphocytes # (Manual) Monocytes # (Manual) Eosinophils # (Manual) Nucleated RBC % Basophils # (Manual) PT INR APTT Heparin Anti-Xa Level ABG pH POC ABG pO2 ABG pO2 ABG HCO3 ABG O2 Saturation ABG Base Excess POC ABG pCO2 ABG Hemoglobin ABG Oxyhemoglobin ABG Chloride ABG Glucose Oxyhemoglobin Sodium Potassium Chloride Carbon Dioxide BUN Creatinine Glucose POC Glucose 146 H 133 H Lactic Acid Calcium Phosphorus 2.40 L Magnesium AST ALT Lactate Dehydrogenase Total Bilirubin Direct Bilirubin CK-MB (CK-2) C-Reactive Protein NT-Pro-B Natriuret Pep Total Protein Albumin Arterial Blood Glucose Urine WBC (Auto) Urine Creatinine 12/04/19 12/04/19 12/04/19 03:58 03:58 05:22 WBC 12.5 H RBC Hgb 11.2 L Hct 35.2 L MCHC RDW 16.0 H MCV MCH Lymph % (Auto) Miller % (Auto) 9.6 H Miller # 1.2 H Eos # 0.5 H Lymph # (Auto) Miller # (Auto) Eos # (Auto) Seg Neutrophils % Seg Neuts % (Manual) Baso # (Auto) Lymphocytes % (Manual) Monocytes % (Manual) Eosinophils % (Manual) Basophils % (Manual) Seg Neutrophils # 8.6 H Seg Neutrophils # Man Lymphocytes # (Manual) Monocytes # (Manual) Eosinophils # (Manual) Nucleated RBC % Basophils # (Manual) PT INR APTT Heparin Anti-Xa Level ABG pH POC ABG pO2 ABG pO2 ABG HCO3 ABG O2 Saturation ABG Base Excess POC ABG pCO2 ABG Hemoglobin ABG Oxyhemoglobin ABG Chloride ABG Glucose Oxyhemoglobin Sodium 146 H Potassium Chloride 108.6 H Carbon Dioxide BUN 30 H Creatinine 0.7 L Glucose 121 H POC Glucose 132 H Lactic Acid Calcium Phosphorus Magnesium AST ALT Lactate Dehydrogenase Total Bilirubin Direct Bilirubin CK-MB (CK-2) C-Reactive Protein NT-Pro-B Natriuret Pep Total Protein Albumin Arterial Blood Glucose Urine WBC (Auto) Urine Creatinine 12/04/19 12/04/19 12/05/19 13:26 18:43 00:19 WBC RBC Hgb Hct MCHC RDW MCV MCH Lymph % (Auto) Miller % (Auto) Miller # Eos # Lymph # (Auto) Miller # (Auto) Eos # (Auto) Seg Neutrophils % Seg Neuts % (Manual) Baso # (Auto) Lymphocytes % (Manual) Monocytes % (Manual) Eosinophils % (Manual) Basophils % (Manual) Seg Neutrophils # Seg Neutrophils # Man Lymphocytes # (Manual) Monocytes # (Manual) Eosinophils # (Manual) Nucleated RBC % Basophils # (Manual) PT INR APTT Heparin Anti-Xa Level ABG pH POC ABG pO2 ABG pO2 ABG HCO3 ABG O2 Saturation ABG Base Excess POC ABG pCO2 ABG Hemoglobin ABG Oxyhemoglobin ABG Chloride ABG Glucose Oxyhemoglobin Sodium Potassium Chloride Carbon Dioxide BUN Creatinine Glucose POC Glucose 185 H 156 H 150 H Lactic Acid Calcium Phosphorus Magnesium AST ALT Lactate Dehydrogenase Total Bilirubin Direct Bilirubin CK-MB (CK-2) C-Reactive Protein NT-Pro-B Natriuret Pep Total Protein Albumin Arterial Blood Glucose Urine WBC (Auto) Urine Creatinine 12/05/19 12/05/19 12/05/19 03:37 03:37 05:14 WBC 16.3 H RBC Hgb 11.4 L Hct MCHC RDW 15.6 H MCV MCH Lymph % (Auto) 9.9 L Miller % (Auto) 9.7 H Miller # 1.6 H Eos # Lymph # (Auto) Miller # (Auto) Eos # (Auto) Seg Neutrophils % 78.0 H Seg Neuts % (Manual) Baso # (Auto) Lymphocytes % (Manual) Monocytes % (Manual) Eosinophils % (Manual) Basophils % (Manual) Seg Neutrophils # 12.7 H Seg Neutrophils # Man Lymphocytes # (Manual) Monocytes # (Manual) Eosinophils # (Manual) Nucleated RBC % Basophils # (Manual) PT INR APTT Heparin Anti-Xa Level ABG pH POC ABG pO2 ABG pO2 ABG HCO3 ABG O2 Saturation ABG Base Excess POC ABG pCO2 ABG Hemoglobin ABG Oxyhemoglobin ABG Chloride ABG Glucose Oxyhemoglobin Sodium 146 H Potassium Chloride 107.2 H Carbon Dioxide BUN 27 H Creatinine 0.7 L Glucose 171 H POC Glucose 168 H Lactic Acid Calcium Phosphorus Magnesium AST ALT Lactate Dehydrogenase Total Bilirubin Direct Bilirubin CK-MB (CK-2) C-Reactive Protein NT-Pro-B Natriuret Pep Total Protein Albumin Arterial Blood Glucose Urine WBC (Auto) Urine Creatinine 12/05/19 12/05/19 12/05/19 12:31 18:10 23:58 WBC RBC Hgb Hct MCHC RDW MCV MCH Lymph % (Auto) Miller % (Auto) Miller # Eos # Lymph # (Auto) Miller # (Auto) Eos # (Auto) Seg Neutrophils % Seg Neuts % (Manual) Baso # (Auto) Lymphocytes % (Manual) Monocytes % (Manual) Eosinophils % (Manual) Basophils % (Manual) Seg Neutrophils # Seg Neutrophils # Man Lymphocytes # (Manual) Monocytes # (Manual) Eosinophils # (Manual) Nucleated RBC % Basophils # (Manual) PT INR APTT Heparin Anti-Xa Level ABG pH POC ABG pO2 ABG pO2 ABG HCO3 ABG O2 Saturation ABG Base Excess POC ABG pCO2 ABG Hemoglobin ABG Oxyhemoglobin ABG Chloride ABG Glucose Oxyhemoglobin Sodium Potassium Chloride Carbon Dioxide BUN Creatinine Glucose POC Glucose 159 H 198 H 115 H Lactic Acid Calcium Phosphorus Magnesium AST ALT Lactate Dehydrogenase Total Bilirubin Direct Bilirubin CK-MB (CK-2) C-Reactive Protein NT-Pro-B Natriuret Pep Total Protein Albumin Arterial Blood Glucose Urine WBC (Auto) Urine Creatinine 12/06/19 12/06/19 12/06/19 05:24 05:24 05:25 WBC 14.9 H RBC Hgb 10.8 L Hct 34.0 L MCHC RDW 15.6 H MCV MCH Lymph % (Auto) 10.7 L Miller % (Auto) 8.3 H Miller # 1.2 H Eos # Lymph # (Auto) Miller # (Auto) Eos # (Auto) Seg Neutrophils % 78.7 H Seg Neuts % (Manual) Baso # (Auto) Lymphocytes % (Manual) Monocytes % (Manual) Eosinophils % (Manual) Basophils % (Manual) Seg Neutrophils # 11.7 H Seg Neutrophils # Man Lymphocytes # (Manual) Monocytes # (Manual) Eosinophils # (Manual) Nucleated RBC % Basophils # (Manual) PT INR APTT Heparin Anti-Xa Level ABG pH POC ABG pO2 ABG pO2 ABG HCO3 ABG O2 Saturation ABG Base Excess POC ABG pCO2 ABG Hemoglobin ABG Oxyhemoglobin ABG Chloride ABG Glucose Oxyhemoglobin Sodium 148 H Potassium 5.1 H Chloride 107.6 H Carbon Dioxide BUN 27 H Creatinine 0.7 L Glucose 155 H POC Glucose 157 H Lactic Acid Calcium Phosphorus Magnesium AST ALT Lactate Dehydrogenase Total Bilirubin Direct Bilirubin CK-MB (CK-2) C-Reactive Protein NT-Pro-B Natriuret Pep Total Protein Albumin Arterial Blood Glucose Urine WBC (Auto) Urine Creatinine 12/07/19 12/07/19 12/07/19 00:13 05:34 11:33 WBC RBC Hgb Hct MCHC RDW MCV MCH Lymph % (Auto) Miller % (Auto) Miller # Eos # Lymph # (Auto) Miller # (Auto) Eos # (Auto) Seg Neutrophils % Seg Neuts % (Manual) Baso # (Auto) Lymphocytes % (Manual) Monocytes % (Manual) Eosinophils % (Manual) Basophils % (Manual) Seg Neutrophils # Seg Neutrophils # Man Lymphocytes # (Manual) Monocytes # (Manual) Eosinophils # (Manual) Nucleated RBC % Basophils # (Manual) PT INR APTT Heparin Anti-Xa Level ABG pH POC ABG pO2 ABG pO2 ABG HCO3 ABG O2 Saturation ABG Base Excess POC ABG pCO2 ABG Hemoglobin ABG Oxyhemoglobin ABG Chloride ABG Glucose Oxyhemoglobin Sodium Potassium Chloride Carbon Dioxide BUN Creatinine Glucose POC Glucose 142 H 111 H 169 H Lactic Acid Calcium Phosphorus Magnesium AST ALT Lactate Dehydrogenase Total Bilirubin Direct Bilirubin CK-MB (CK-2) C-Reactive Protein NT-Pro-B Natriuret Pep Total Protein Albumin Arterial Blood Glucose Urine WBC (Auto) Urine Creatinine 12/07/19 12/07/19 12/07/19 12:41 13:25 18:19 WBC 12.4 H RBC 3.53 L Hgb 10.2 L Hct 32.1 L MCHC RDW 15.3 H MCV MCH Lymph % (Auto) 10.6 L Miller % (Auto) 7.8 H Miller # 1.0 H Eos # Lymph # (Auto) Miller # (Auto) Eos # (Auto) Seg Neutrophils % 77.6 H Seg Neuts % (Manual) Baso # (Auto) Lymphocytes % (Manual) Monocytes % (Manual) Eosinophils % (Manual) Basophils % (Manual) Seg Neutrophils # 9.6 H Seg Neutrophils # Man Lymphocytes # (Manual) Monocytes # (Manual) Eosinophils # (Manual) Nucleated RBC % Basophils # (Manual) PT INR APTT Heparin Anti-Xa Level ABG pH POC ABG pO2 ABG pO2 ABG HCO3 ABG O2 Saturation ABG Base Excess POC ABG pCO2 ABG Hemoglobin ABG Oxyhemoglobin ABG Chloride ABG Glucose Oxyhemoglobin Sodium 149 H Potassium Chloride 108.4 H Carbon Dioxide BUN 26 H Creatinine 0.6 L Glucose 149 H POC Glucose 164 H Lactic Acid Calcium Phosphorus Magnesium 2.60 H AST 121 H ALT 145 H Lactate Dehydrogenase Total Bilirubin Direct Bilirubin CK-MB (CK-2) C-Reactive Protein NT-Pro-B Natriuret Pep Total Protein Albumin 2.6 L Arterial Blood Glucose Urine WBC (Auto) Urine Creatinine 12/07/19 12/08/19 12/08/19 22:25 00:02 03:55 WBC 13.3 H RBC 3.40 L Hgb 9.7 L Hct 30.8 L MCHC 31 L RDW 15.5 H MCV MCH Lymph % (Auto) Miller % (Auto) 8.1 H Miller # 1.1 H Eos # Lymph # (Auto) Miller # (Auto) Eos # (Auto) Seg Neutrophils % 73.0 H Seg Neuts % (Manual) Baso # (Auto) Lymphocytes % (Manual) Monocytes % (Manual) Eosinophils % (Manual) Basophils % (Manual) Seg Neutrophils # 9.7 H Seg Neutrophils # Man Lymphocytes # (Manual) Monocytes # (Manual) Eosinophils # (Manual) Nucleated RBC % Basophils # (Manual) PT INR APTT Heparin Anti-Xa Level 0.12 L ABG pH POC ABG pO2 ABG pO2 ABG HCO3 ABG O2 Saturation ABG Base Excess POC ABG pCO2 ABG Hemoglobin ABG Oxyhemoglobin ABG Chloride ABG Glucose Oxyhemoglobin Sodium Potassium Chloride Carbon Dioxide BUN Creatinine Glucose POC Glucose 151 H Lactic Acid Calcium Phosphorus Magnesium AST ALT Lactate Dehydrogenase Total Bilirubin Direct Bilirubin CK-MB (CK-2) C-Reactive Protein NT-Pro-B Natriuret Pep Total Protein Albumin Arterial Blood Glucose Urine WBC (Auto) Urine Creatinine 12/08/19 12/08/19 12/08/19 03:55 05:21 06:01 WBC RBC Hgb Hct MCHC RDW MCV MCH Lymph % (Auto) Miller % (Auto) Miller # Eos # Lymph # (Auto) Miller # (Auto) Eos # (Auto) Seg Neutrophils % Seg Neuts % (Manual) Baso # (Auto) Lymphocytes % (Manual) Monocytes % (Manual) Eosinophils % (Manual) Basophils % (Manual) Seg Neutrophils # Seg Neutrophils # Man Lymphocytes # (Manual) Monocytes # (Manual) Eosinophils # (Manual) Nucleated RBC % Basophils # (Manual) PT INR APTT Heparin Anti-Xa Level 0.20 L ABG pH POC ABG pO2 ABG pO2 ABG HCO3 ABG O2 Saturation ABG Base Excess POC ABG pCO2 ABG Hemoglobin ABG Oxyhemoglobin ABG Chloride ABG Glucose Oxyhemoglobin Sodium 149 H Potassium Chloride 108.0 H Carbon Dioxide BUN 28 H Creatinine 0.6 L Glucose 144 H POC Glucose 143 H Lactic Acid Calcium Phosphorus Magnesium AST 98 H ALT 145 H Lactate Dehydrogenase Total Bilirubin Direct Bilirubin CK-MB (CK-2) C-Reactive Protein NT-Pro-B Natriuret Pep Total Protein 6.0 L Albumin 2.4 L Arterial Blood Glucose Urine WBC (Auto) Urine Creatinine 12/08/19 12/08/19 12/08/19 12:08 18:11 23:53 WBC RBC Hgb Hct MCHC RDW MCV MCH Lymph % (Auto) Miller % (Auto) Miller # Eos # Lymph # (Auto) Miller # (Auto) Eos # (Auto) Seg Neutrophils % Seg Neuts % (Manual) Baso # (Auto) Lymphocytes % (Manual) Monocytes % (Manual) Eosinophils % (Manual) Basophils % (Manual) Seg Neutrophils # Seg Neutrophils # Man Lymphocytes # (Manual) Monocytes # (Manual) Eosinophils # (Manual) Nucleated RBC % Basophils # (Manual) PT INR APTT Heparin Anti-Xa Level ABG pH POC ABG pO2 ABG pO2 ABG HCO3 ABG O2 Saturation ABG Base Excess POC ABG pCO2 ABG Hemoglobin ABG Oxyhemoglobin ABG Chloride ABG Glucose Oxyhemoglobin Sodium Potassium Chloride Carbon Dioxide BUN Creatinine Glucose POC Glucose 172 H 122 H 162 H Lactic Acid Calcium Phosphorus Magnesium AST ALT Lactate Dehydrogenase Total Bilirubin Direct Bilirubin CK-MB (CK-2) C-Reactive Protein NT-Pro-B Natriuret Pep Total Protein Albumin Arterial Blood Glucose Urine WBC (Auto) Urine Creatinine 12/09/19 12/09/19 12/09/19 04:03 04:03 05:53 WBC RBC Hgb 9.1 L Hct 28.9 L MCHC RDW MCV MCH Lymph % (Auto) Miller % (Auto) Miller # Eos # Lymph # (Auto) Miller # (Auto) Eos # (Auto) Seg Neutrophils % Seg Neuts % (Manual) Baso # (Auto) Lymphocytes % (Manual) Monocytes % (Manual) Eosinophils % (Manual) Basophils % (Manual) Seg Neutrophils # Seg Neutrophils # Man Lymphocytes # (Manual) Monocytes # (Manual) Eosinophils # (Manual) Nucleated RBC % Basophils # (Manual) PT INR APTT Heparin Anti-Xa Level 0.15 L ABG pH POC ABG pO2 ABG pO2 ABG HCO3 ABG O2 Saturation ABG Base Excess POC ABG pCO2 ABG Hemoglobin ABG Oxyhemoglobin ABG Chloride ABG Glucose Oxyhemoglobin Sodium Potassium Chloride Carbon Dioxide BUN Creatinine Glucose POC Glucose 124 H Lactic Acid Calcium Phosphorus Magnesium AST ALT Lactate Dehydrogenase Total Bilirubin Direct Bilirubin CK-MB (CK-2) C-Reactive Protein NT-Pro-B Natriuret Pep Total Protein Albumin Arterial Blood Glucose Urine WBC (Auto) Urine Creatinine 12/09/19 12/09/19 12/10/19 09:43 12:41 00:13 WBC RBC Hgb Hct MCHC RDW MCV MCH Lymph % (Auto) Miller % (Auto) Miller # Eos # Lymph # (Auto) Miller # (Auto) Eos # (Auto) Seg Neutrophils % Seg Neuts % (Manual) Baso # (Auto) Lymphocytes % (Manual) Monocytes % (Manual) Eosinophils % (Manual) Basophils % (Manual) Seg Neutrophils # Seg Neutrophils # Man Lymphocytes # (Manual) Monocytes # (Manual) Eosinophils # (Manual) Nucleated RBC % Basophils # (Manual) PT INR APTT Heparin Anti-Xa Level ABG pH POC ABG pO2 ABG pO2 ABG HCO3 ABG O2 Saturation ABG Base Excess POC ABG pCO2 ABG Hemoglobin ABG Oxyhemoglobin ABG Chloride ABG Glucose Oxyhemoglobin Sodium Potassium Chloride Carbon Dioxide BUN 25 H Creatinine 0.6 L Glucose 131 H POC Glucose 109 H 120 H Lactic Acid Calcium Phosphorus Magnesium AST ALT Lactate Dehydrogenase Total Bilirubin Direct Bilirubin CK-MB (CK-2) C-Reactive Protein NT-Pro-B Natriuret Pep Total Protein Albumin Arterial Blood Glucose Urine WBC (Auto) Urine Creatinine 12/10/19 12/10/19 12/10/19 04:14 04:14 12:00 WBC 13.3 H RBC 3.34 L Hgb 9.6 L Hct 30.4 L MCHC RDW 15.4 H MCV MCH Lymph % (Auto) Miller % (Auto) Miller # Eos # Lymph # (Auto) Miller # (Auto) Eos # (Auto) Seg Neutrophils % Seg Neuts % (Manual) 75.0 H Baso # (Auto) Lymphocytes % (Manual) 13.0 L Monocytes % (Manual) 8.0 H Eosinophils % (Manual) Basophils % (Manual) 2.0 H Seg Neutrophils # Seg Neutrophils # Man 10.0 H Lymphocytes # (Manual) Monocytes # (Manual) 1.1 H Eosinophils # (Manual) Nucleated RBC % Basophils # (Manual) 0.3 H PT INR APTT Heparin Anti-Xa Level ABG pH POC ABG pO2 ABG pO2 ABG HCO3 ABG O2 Saturation ABG Base Excess POC ABG pCO2 ABG Hemoglobin ABG Oxyhemoglobin ABG Chloride ABG Glucose Oxyhemoglobin Sodium 147 H Potassium Chloride 108.3 H Carbon Dioxide BUN 21 H Creatinine 0.6 L Glucose 104 H POC Glucose 133 H Lactic Acid Calcium Phosphorus Magnesium AST ALT Lactate Dehydrogenase Total Bilirubin Direct Bilirubin CK-MB (CK-2) C-Reactive Protein NT-Pro-B Natriuret Pep Total Protein Albumin Arterial Blood Glucose Urine WBC (Auto) Urine Creatinine 12/10/19 12/10/19 12/11/19 18:44 21:20 00:08 WBC 14.9 H RBC 3.36 L Hgb 9.6 L Hct 30.5 L MCHC RDW 15.4 H MCV MCH Lymph % (Auto) Miller % (Auto) Miller # Eos # Lymph # (Auto) Miller # (Auto) Eos # (Auto) Seg Neutrophils % Seg Neuts % (Manual) Baso # (Auto) Lymphocytes % (Manual) Monocytes % (Manual) Eosinophils % (Manual) Basophils % (Manual) Seg Neutrophils # Seg Neutrophils # Man Lymphocytes # (Manual) Monocytes # (Manual) Eosinophils # (Manual) Nucleated RBC % Basophils # (Manual) PT INR APTT Heparin Anti-Xa Level ABG pH POC ABG pO2 ABG pO2 ABG HCO3 ABG O2 Saturation ABG Base Excess POC ABG pCO2 ABG Hemoglobin ABG Oxyhemoglobin ABG Chloride ABG Glucose Oxyhemoglobin Sodium Potassium Chloride Carbon Dioxide BUN Creatinine Glucose POC Glucose 119 H 134 H Lactic Acid Calcium Phosphorus Magnesium AST ALT Lactate Dehydrogenase Total Bilirubin Direct Bilirubin CK-MB (CK-2) C-Reactive Protein NT-Pro-B Natriuret Pep Total Protein Albumin Arterial Blood Glucose Urine WBC (Auto) Urine Creatinine 12/11/19 12/11/19 12/11/19 03:54 07:28 08:36 WBC 11.9 H RBC 3.25 L Hgb 9.6 L Hct 29.2 L MCHC RDW 15.7 H MCV MCH Lymph % (Auto) Miller % (Auto) Miller # Eos # Lymph # (Auto) Miller # (Auto) Eos # (Auto) Seg Neutrophils % Seg Neuts % (Manual) Baso # (Auto) Lymphocytes % (Manual) Monocytes % (Manual) Eosinophils % (Manual) Basophils % (Manual) Seg Neutrophils # Seg Neutrophils # Man Lymphocytes # (Manual) Monocytes # (Manual) Eosinophils # (Manual) Nucleated RBC % Basophils # (Manual) PT INR APTT Heparin Anti-Xa Level 0.10 L 0.16 L ABG pH POC ABG pO2 ABG pO2 ABG HCO3 ABG O2 Saturation ABG Base Excess POC ABG pCO2 ABG Hemoglobin ABG Oxyhemoglobin ABG Chloride ABG Glucose Oxyhemoglobin Sodium Potassium Chloride Carbon Dioxide BUN Creatinine Glucose POC Glucose Lactic Acid Calcium Phosphorus Magnesium AST ALT Lactate Dehydrogenase Total Bilirubin Direct Bilirubin CK-MB (CK-2) C-Reactive Protein NT-Pro-B Natriuret Pep Total Protein Albumin Arterial Blood Glucose Urine WBC (Auto) Urine Creatinine 12/11/19 12/11/19 12/11/19 08:36 11:45 17:15 WBC RBC Hgb Hct MCHC RDW MCV MCH Lymph % (Auto) Miller % (Auto) Miller # Eos # Lymph # (Auto) Miller # (Auto) Eos # (Auto) Seg Neutrophils % Seg Neuts % (Manual) Baso # (Auto) Lymphocytes % (Manual) Monocytes % (Manual) Eosinophils % (Manual) Basophils % (Manual) Seg Neutrophils # Seg Neutrophils # Man Lymphocytes # (Manual) Monocytes # (Manual) Eosinophils # (Manual) Nucleated RBC % Basophils # (Manual) PT INR APTT Heparin Anti-Xa Level ABG pH POC ABG pO2 ABG pO2 ABG HCO3 ABG O2 Saturation ABG Base Excess POC ABG pCO2 ABG Hemoglobin ABG Oxyhemoglobin ABG Chloride ABG Glucose Oxyhemoglobin Sodium Potassium Chloride Carbon Dioxide BUN Creatinine 0.5 L Glucose 128 H POC Glucose 136 H 109 H Lactic Acid Calcium Phosphorus Magnesium AST ALT Lactate Dehydrogenase Total Bilirubin Direct Bilirubin CK-MB (CK-2) C-Reactive Protein NT-Pro-B Natriuret Pep Total Protein Albumin Arterial Blood Glucose Urine WBC (Auto) Urine Creatinine 12/12/19 12/12/19 12/12/19 00:03 05:53 05:53 WBC RBC Hgb 8.8 L Hct 27.6 L MCHC RDW MCV MCH Lymph % (Auto) Miller % (Auto) Miller # Eos # Lymph # (Auto) Miller # (Auto) Eos # (Auto) Seg Neutrophils % Seg Neuts % (Manual) Baso # (Auto) Lymphocytes % (Manual) Monocytes % (Manual) Eosinophils % (Manual) Basophils % (Manual) Seg Neutrophils # Seg Neutrophils # Man Lymphocytes # (Manual) Monocytes # (Manual) Eosinophils # (Manual) Nucleated RBC % Basophils # (Manual) PT INR APTT Heparin Anti-Xa Level 0.22 L ABG pH POC ABG pO2 ABG pO2 ABG HCO3 ABG O2 Saturation ABG Base Excess POC ABG pCO2 ABG Hemoglobin ABG Oxyhemoglobin ABG Chloride ABG Glucose Oxyhemoglobin Sodium Potassium Chloride Carbon Dioxide BUN Creatinine Glucose POC Glucose 116 H Lactic Acid Calcium Phosphorus Magnesium AST ALT Lactate Dehydrogenase Total Bilirubin Direct Bilirubin CK-MB (CK-2) C-Reactive Protein NT-Pro-B Natriuret Pep Total Protein Albumin Arterial Blood Glucose Urine WBC (Auto) Urine Creatinine 12/12/19 12/12/19 12/12/19 09:38 12:18 17:44 WBC RBC Hgb Hct MCHC RDW MCV MCH Lymph % (Auto) Miller % (Auto) Miller # Eos # Lymph # (Auto) Miller # (Auto) Eos # (Auto) Seg Neutrophils % Seg Neuts % (Manual) Baso # (Auto) Lymphocytes % (Manual) Monocytes % (Manual) Eosinophils % (Manual) Basophils % (Manual) Seg Neutrophils # Seg Neutrophils # Man Lymphocytes # (Manual) Monocytes # (Manual) Eosinophils # (Manual) Nucleated RBC % Basophils # (Manual) PT INR APTT Heparin Anti-Xa Level ABG pH POC ABG pO2 ABG pO2 ABG HCO3 ABG O2 Saturation ABG Base Excess POC ABG pCO2 ABG Hemoglobin ABG Oxyhemoglobin ABG Chloride ABG Glucose Oxyhemoglobin Sodium Potassium Chloride Carbon Dioxide BUN Creatinine Glucose POC Glucose 115 H 146 H 146 H Lactic Acid Calcium Phosphorus Magnesium AST ALT Lactate Dehydrogenase Total Bilirubin Direct Bilirubin CK-MB (CK-2) C-Reactive Protein NT-Pro-B Natriuret Pep Total Protein Albumin Arterial Blood Glucose Urine WBC (Auto) Urine Creatinine 12/12/19 12/13/19 12/13/19 23:33 05:32 05:32 WBC 13.1 H RBC 3.27 L Hgb 9.5 L Hct 29.3 L MCHC RDW 15.6 H MCV MCH Lymph % (Auto) Miller % (Auto) Miller # Eos # Lymph # (Auto) Miller # (Auto) Eos # (Auto) Seg Neutrophils % Seg Neuts % (Manual) 74.0 H Baso # (Auto) Lymphocytes % (Manual) 8.0 L Monocytes % (Manual) 9.0 H Eosinophils % (Manual) 5.0 H Basophils % (Manual) Seg Neutrophils # Seg Neutrophils # Man 9.7 H Lymphocytes # (Manual) 1.0 L Monocytes # (Manual) 1.2 H Eosinophils # (Manual) 0.7 H Nucleated RBC % Basophils # (Manual) PT INR APTT Heparin Anti-Xa Level 0.20 L ABG pH POC ABG pO2 ABG pO2 ABG HCO3 ABG O2 Saturation ABG Base Excess POC ABG pCO2 ABG Hemoglobin ABG Oxyhemoglobin ABG Chloride ABG Glucose Oxyhemoglobin Sodium Potassium Chloride Carbon Dioxide BUN Creatinine Glucose POC Glucose 126 H Lactic Acid Calcium Phosphorus Magnesium AST ALT Lactate Dehydrogenase Total Bilirubin Direct Bilirubin CK-MB (CK-2) C-Reactive Protein NT-Pro-B Natriuret Pep Total Protein Albumin Arterial Blood Glucose Urine WBC (Auto) Urine Creatinine 12/13/19 12/13/19 12/13/19 05:32 05:46 11:57 WBC RBC Hgb Hct MCHC RDW MCV MCH Lymph % (Auto) Miller % (Auto) Miller # Eos # Lymph # (Auto) Miller # (Auto) Eos # (Auto) Seg Neutrophils % Seg Neuts % (Manual) Baso # (Auto) Lymphocytes % (Manual) Monocytes % (Manual) Eosinophils % (Manual) Basophils % (Manual) Seg Neutrophils # Seg Neutrophils # Man Lymphocytes # (Manual) Monocytes # (Manual) Eosinophils # (Manual) Nucleated RBC % Basophils # (Manual) PT INR APTT Heparin Anti-Xa Level ABG pH POC ABG pO2 ABG pO2 ABG HCO3 ABG O2 Saturation ABG Base Excess POC ABG pCO2 ABG Hemoglobin ABG Oxyhemoglobin ABG Chloride ABG Glucose Oxyhemoglobin Sodium Potassium Chloride Carbon Dioxide 31 H BUN Creatinine 0.6 L Glucose 114 H POC Glucose 118 H 133 H Lactic Acid Calcium Phosphorus Magnesium AST ALT Lactate Dehydrogenase Total Bilirubin Direct Bilirubin CK-MB (CK-2) C-Reactive Protein NT-Pro-B Natriuret Pep Total Protein Albumin Arterial Blood Glucose Urine WBC (Auto) Urine Creatinine 12/13/19 12/13/19 12/14/19 17:44 23:46 05:32 WBC RBC Hgb Hct MCHC RDW MCV MCH Lymph % (Auto) Miller % (Auto) Miller # Eos # Lymph # (Auto) Miller # (Auto) Eos # (Auto) Seg Neutrophils % Seg Neuts % (Manual) Baso # (Auto) Lymphocytes % (Manual) Monocytes % (Manual) Eosinophils % (Manual) Basophils % (Manual) Seg Neutrophils # Seg Neutrophils # Man Lymphocytes # (Manual) Monocytes # (Manual) Eosinophils # (Manual) Nucleated RBC % Basophils # (Manual) PT INR APTT Heparin Anti-Xa Level ABG pH POC ABG pO2 ABG pO2 ABG HCO3 ABG O2 Saturation ABG Base Excess POC ABG pCO2 ABG Hemoglobin ABG Oxyhemoglobin ABG Chloride ABG Glucose Oxyhemoglobin Sodium Potassium Chloride Carbon Dioxide BUN Creatinine Glucose POC Glucose 161 H 126 H 139 H Lactic Acid Calcium Phosphorus Magnesium AST ALT Lactate Dehydrogenase Total Bilirubin Direct Bilirubin CK-MB (CK-2) C-Reactive Protein NT-Pro-B Natriuret Pep Total Protein Albumin Arterial Blood Glucose Urine WBC (Auto) Urine Creatinine 12/14/19 12/14/19 12/14/19 06:03 06:03 09:37 WBC RBC Hgb 9.6 L Hct 30.4 L MCHC RDW MCV MCH Lymph % (Auto) Miller % (Auto) Miller # Eos # Lymph # (Auto) Miller # (Auto) Eos # (Auto) Seg Neutrophils % Seg Neuts % (Manual) Baso # (Auto) Lymphocytes % (Manual) Monocytes % (Manual) Eosinophils % (Manual) Basophils % (Manual) Seg Neutrophils # Seg Neutrophils # Man Lymphocytes # (Manual) Monocytes # (Manual) Eosinophils # (Manual) Nucleated RBC % Basophils # (Manual) PT INR APTT Heparin Anti-Xa Level 0.24 L ABG pH POC ABG pO2 ABG pO2 ABG HCO3 ABG O2 Saturation ABG Base Excess POC ABG pCO2 ABG Hemoglobin ABG Oxyhemoglobin ABG Chloride ABG Glucose Oxyhemoglobin Sodium Potassium Chloride Carbon Dioxide BUN Creatinine 0.6 L Glucose 162 H POC Glucose Lactic Acid Calcium Phosphorus Magnesium AST 71 H ALT 118 H Lactate Dehydrogenase Total Bilirubin Direct Bilirubin CK-MB (CK-2) C-Reactive Protein NT-Pro-B Natriuret Pep Total Protein 6.2 L Albumin 2.3 L Arterial Blood Glucose Urine WBC (Auto) Urine Creatinine 12/14/19 12/14/19 12/15/19 12:06 18:18 00:19 WBC RBC Hgb Hct MCHC RDW MCV MCH Lymph % (Auto) Miller % (Auto) Miller # Eos # Lymph # (Auto) Miller # (Auto) Eos # (Auto) Seg Neutrophils % Seg Neuts % (Manual) Baso # (Auto) Lymphocytes % (Manual) Monocytes % (Manual) Eosinophils % (Manual) Basophils % (Manual) Seg Neutrophils # Seg Neutrophils # Man Lymphocytes # (Manual) Monocytes # (Manual) Eosinophils # (Manual) Nucleated RBC % Basophils # (Manual) PT INR APTT Heparin Anti-Xa Level ABG pH POC ABG pO2 ABG pO2 ABG HCO3 ABG O2 Saturation ABG Base Excess POC ABG pCO2 ABG Hemoglobin ABG Oxyhemoglobin ABG Chloride ABG Glucose Oxyhemoglobin Sodium Potassium Chloride Carbon Dioxide BUN Creatinine Glucose POC Glucose 147 H 166 H 123 H Lactic Acid Calcium Phosphorus Magnesium AST ALT Lactate Dehydrogenase Total Bilirubin Direct Bilirubin CK-MB (CK-2) C-Reactive Protein NT-Pro-B Natriuret Pep Total Protein Albumin Arterial Blood Glucose Urine WBC (Auto) Urine Creatinine 12/15/19 12/15/19 12/15/19 05:28 05:29 05:29 WBC 14.9 H RBC 3.19 L Hgb 9.1 L Hct 28.7 L MCHC RDW 16.0 H MCV MCH Lymph % (Auto) Miller % (Auto) Miller # Eos # Lymph # (Auto) Miller # (Auto) Eos # (Auto) Seg Neutrophils % Seg Neuts % (Manual) Baso # (Auto) Lymphocytes % (Manual) Monocytes % (Manual) Eosinophils % (Manual) Basophils % (Manual) Seg Neutrophils # Seg Neutrophils # Man Lymphocytes # (Manual) Monocytes # (Manual) Eosinophils # (Manual) Nucleated RBC % Basophils # (Manual) PT INR APTT Heparin Anti-Xa Level 0.19 L ABG pH POC ABG pO2 ABG pO2 ABG HCO3 ABG O2 Saturation ABG Base Excess POC ABG pCO2 ABG Hemoglobin ABG Oxyhemoglobin ABG Chloride ABG Glucose Oxyhemoglobin Sodium Potassium Chloride Carbon Dioxide BUN Creatinine 0.6 L Glucose 110 H POC Glucose Lactic Acid Calcium Phosphorus Magnesium AST ALT Lactate Dehydrogenase Total Bilirubin Direct Bilirubin CK-MB (CK-2) C-Reactive Protein NT-Pro-B Natriuret Pep Total Protein Albumin Arterial Blood Glucose Urine WBC (Auto) Urine Creatinine 12/15/19 12/15/19 12/15/19 05:53 11:50 17:26 WBC RBC Hgb Hct MCHC RDW MCV MCH Lymph % (Auto) Miller % (Auto) Miller # Eos # Lymph # (Auto) Miller # (Auto) Eos # (Auto) Seg Neutrophils % Seg Neuts % (Manual) Baso # (Auto) Lymphocytes % (Manual) Monocytes % (Manual) Eosinophils % (Manual) Basophils % (Manual) Seg Neutrophils # Seg Neutrophils # Man Lymphocytes # (Manual) Monocytes # (Manual) Eosinophils # (Manual) Nucleated RBC % Basophils # (Manual) PT INR APTT Heparin Anti-Xa Level ABG pH POC ABG pO2 ABG pO2 ABG HCO3 ABG O2 Saturation ABG Base Excess POC ABG pCO2 ABG Hemoglobin ABG Oxyhemoglobin ABG Chloride ABG Glucose Oxyhemoglobin Sodium Potassium Chloride Carbon Dioxide BUN Creatinine Glucose POC Glucose 119 H 132 H 128 H Lactic Acid Calcium Phosphorus Magnesium AST ALT Lactate Dehydrogenase Total Bilirubin Direct Bilirubin CK-MB (CK-2) C-Reactive Protein NT-Pro-B Natriuret Pep Total Protein Albumin Arterial Blood Glucose Urine WBC (Auto) Urine Creatinine 12/15/19 12/16/19 12/16/19 23:11 05:30 05:46 WBC RBC Hgb 8.8 L Hct 27.9 L MCHC RDW MCV MCH Lymph % (Auto) Miller % (Auto) Miller # Eos # Lymph # (Auto) Miller # (Auto) Eos # (Auto) Seg Neutrophils % Seg Neuts % (Manual) Baso # (Auto) Lymphocytes % (Manual) Monocytes % (Manual) Eosinophils % (Manual) Basophils % (Manual) Seg Neutrophils # Seg Neutrophils # Man Lymphocytes # (Manual) Monocytes # (Manual) Eosinophils # (Manual) Nucleated RBC % Basophils # (Manual) PT INR APTT Heparin Anti-Xa Level ABG pH POC ABG pO2 ABG pO2 ABG HCO3 ABG O2 Saturation ABG Base Excess POC ABG pCO2 ABG Hemoglobin ABG Oxyhemoglobin ABG Chloride ABG Glucose Oxyhemoglobin Sodium Potassium Chloride Carbon Dioxide BUN Creatinine Glucose POC Glucose 150 H 134 H Lactic Acid Calcium Phosphorus Magnesium AST ALT Lactate Dehydrogenase Total Bilirubin Direct Bilirubin CK-MB (CK-2) C-Reactive Protein NT-Pro-B Natriuret Pep Total Protein Albumin Arterial Blood Glucose Urine WBC (Auto) Urine Creatinine 12/16/19 12/16/19 12/16/19 05:46 05:46 11:44 WBC RBC Hgb Hct MCHC RDW MCV MCH Lymph % (Auto) Miller % (Auto) Miller # Eos # Lymph # (Auto) Miller # (Auto) Eos # (Auto) Seg Neutrophils % Seg Neuts % (Manual) Baso # (Auto) Lymphocytes % (Manual) Monocytes % (Manual) Eosinophils % (Manual) Basophils % (Manual) Seg Neutrophils # Seg Neutrophils # Man Lymphocytes # (Manual) Monocytes # (Manual) Eosinophils # (Manual) Nucleated RBC % Basophils # (Manual) PT INR APTT Heparin Anti-Xa Level 0.20 L ABG pH POC ABG pO2 ABG pO2 ABG HCO3 ABG O2 Saturation ABG Base Excess POC ABG pCO2 ABG Hemoglobin ABG Oxyhemoglobin ABG Chloride ABG Glucose Oxyhemoglobin Sodium Potassium Chloride Carbon Dioxide 31 H BUN Creatinine 0.5 L Glucose 147 H POC Glucose 164 H Lactic Acid Calcium Phosphorus Magnesium AST ALT Lactate Dehydrogenase Total Bilirubin Direct Bilirubin CK-MB (CK-2) C-Reactive Protein NT-Pro-B Natriuret Pep Total Protein Albumin Arterial Blood Glucose Urine WBC (Auto) Urine Creatinine 12/16/19 12/16/19 12/17/19 17:17 23:49 05:30 WBC 13.9 H RBC 3.27 L Hgb 9.4 L Hct 29.2 L MCHC RDW 16.0 H MCV MCH Lymph % (Auto) Miller % (Auto) 8.8 H Miller # Eos # Lymph # (Auto) Miller # (Auto) 1.2 H Eos # (Auto) 0.5 H Seg Neutrophils % 70.5 H Seg Neuts % (Manual) Baso # (Auto) 0.2 H Lymphocytes % (Manual) Monocytes % (Manual) Eosinophils % (Manual) Basophils % (Manual) Seg Neutrophils # 9.8 H Seg Neutrophils # Man Lymphocytes # (Manual) Monocytes # (Manual) Eosinophils # (Manual) Nucleated RBC % Basophils # (Manual) PT INR APTT Heparin Anti-Xa Level ABG pH POC ABG pO2 ABG pO2 ABG HCO3 ABG O2 Saturation ABG Base Excess POC ABG pCO2 ABG Hemoglobin ABG Oxyhemoglobin ABG Chloride ABG Glucose Oxyhemoglobin Sodium Potassium Chloride Carbon Dioxide BUN Creatinine Glucose POC Glucose 162 H 144 H Lactic Acid Calcium Phosphorus Magnesium AST ALT Lactate Dehydrogenase Total Bilirubin Direct Bilirubin CK-MB (CK-2) C-Reactive Protein NT-Pro-B Natriuret Pep Total Protein Albumin Arterial Blood Glucose Urine WBC (Auto) Urine Creatinine 12/17/19 12/17/19 12/17/19 05:30 06:06 11:50 WBC RBC Hgb Hct MCHC RDW MCV MCH Lymph % (Auto) Miller % (Auto) Miller # Eos # Lymph # (Auto) Miller # (Auto) Eos # (Auto) Seg Neutrophils % Seg Neuts % (Manual) Baso # (Auto) Lymphocytes % (Manual) Monocytes % (Manual) Eosinophils % (Manual) Basophils % (Manual) Seg Neutrophils # Seg Neutrophils # Man Lymphocytes # (Manual) Monocytes # (Manual) Eosinophils # (Manual) Nucleated RBC % Basophils # (Manual) PT INR APTT Heparin Anti-Xa Level ABG pH POC ABG pO2 ABG pO2 ABG HCO3 ABG O2 Saturation ABG Base Excess POC ABG pCO2 ABG Hemoglobin ABG Oxyhemoglobin ABG Chloride ABG Glucose Oxyhemoglobin Sodium Potassium Chloride 97.4 L Carbon Dioxide 32 H BUN Creatinine 0.5 L Glucose 135 H POC Glucose 151 H 140 H Lactic Acid Calcium Phosphorus Magnesium AST ALT Lactate Dehydrogenase Total Bilirubin Direct Bilirubin CK-MB (CK-2) C-Reactive Protein NT-Pro-B Natriuret Pep Total Protein Albumin Arterial Blood Glucose Urine WBC (Auto) Urine Creatinine 12/17/19 12/17/19 12/18/19 17:50 23:46 05:17 WBC RBC Hgb 8.8 L Hct 28.0 L MCHC RDW MCV MCH Lymph % (Auto) Miller % (Auto) Miller # Eos # Lymph # (Auto) Miller # (Auto) Eos # (Auto) Seg Neutrophils % Seg Neuts % (Manual) Baso # (Auto) Lymphocytes % (Manual) Monocytes % (Manual) Eosinophils % (Manual) Basophils % (Manual) Seg Neutrophils # Seg Neutrophils # Man Lymphocytes # (Manual) Monocytes # (Manual) Eosinophils # (Manual) Nucleated RBC % Basophils # (Manual) PT INR APTT Heparin Anti-Xa Level ABG pH POC ABG pO2 ABG pO2 ABG HCO3 ABG O2 Saturation ABG Base Excess POC ABG pCO2 ABG Hemoglobin ABG Oxyhemoglobin ABG Chloride ABG Glucose Oxyhemoglobin Sodium Potassium Chloride Carbon Dioxide BUN Creatinine Glucose POC Glucose 158 H 150 H Lactic Acid Calcium Phosphorus Magnesium AST ALT Lactate Dehydrogenase Total Bilirubin Direct Bilirubin CK-MB (CK-2) C-Reactive Protein NT-Pro-B Natriuret Pep Total Protein Albumin Arterial Blood Glucose Urine WBC (Auto) Urine Creatinine 12/18/19 12/18/19 12/18/19 05:17 05:49 11:12 WBC RBC Hgb Hct MCHC RDW MCV MCH Lymph % (Auto) Miller % (Auto) Miller # Eos # Lymph # (Auto) Miller # (Auto) Eos # (Auto) Seg Neutrophils % Seg Neuts % (Manual) Baso # (Auto) Lymphocytes % (Manual) Monocytes % (Manual) Eosinophils % (Manual) Basophils % (Manual) Seg Neutrophils # Seg Neutrophils # Man Lymphocytes # (Manual) Monocytes # (Manual) Eosinophils # (Manual) Nucleated RBC % Basophils # (Manual) PT INR APTT Heparin Anti-Xa Level 0.16 L ABG pH POC ABG pO2 ABG pO2 ABG HCO3 ABG O2 Saturation ABG Base Excess POC ABG pCO2 ABG Hemoglobin ABG Oxyhemoglobin ABG Chloride ABG Glucose Oxyhemoglobin Sodium Potassium Chloride Carbon Dioxide BUN Creatinine Glucose POC Glucose 127 H 191 H Lactic Acid Calcium Phosphorus Magnesium AST ALT Lactate Dehydrogenase Total Bilirubin Direct Bilirubin CK-MB (CK-2) C-Reactive Protein NT-Pro-B Natriuret Pep Total Protein Albumin Arterial Blood Glucose Urine WBC (Auto) Urine Creatinine 12/18/19 12/18/19 12/19/19 17:03 20:16 00:08 WBC RBC Hgb Hct MCHC RDW MCV MCH Lymph % (Auto) Miller % (Auto) Miller # Eos # Lymph # (Auto) Miller # (Auto) Eos # (Auto) Seg Neutrophils % Seg Neuts % (Manual) Baso # (Auto) Lymphocytes % (Manual) Monocytes % (Manual) Eosinophils % (Manual) Basophils % (Manual) Seg Neutrophils # Seg Neutrophils # Man Lymphocytes # (Manual) Monocytes # (Manual) Eosinophils # (Manual) Nucleated RBC % Basophils # (Manual) PT INR APTT Heparin Anti-Xa Level ABG pH POC ABG pO2 ABG pO2 ABG HCO3 ABG O2 Saturation ABG Base Excess POC ABG pCO2 ABG Hemoglobin ABG Oxyhemoglobin ABG Chloride ABG Glucose Oxyhemoglobin Sodium Potassium Chloride Carbon Dioxide BUN Creatinine Glucose POC Glucose 133 H 128 H 129 H Lactic Acid Calcium Phosphorus Magnesium AST ALT Lactate Dehydrogenase Total Bilirubin Direct Bilirubin CK-MB (CK-2) C-Reactive Protein NT-Pro-B Natriuret Pep Total Protein Albumin Arterial Blood Glucose Urine WBC (Auto) Urine Creatinine 12/19/19 12/19/19 12/19/19 04:45 04:45 05:35 WBC RBC Hgb Hct MCHC RDW MCV MCH Lymph % (Auto) Miller % (Auto) Miller # Eos # Lymph # (Auto) Miller # (Auto) Eos # (Auto) Seg Neutrophils % Seg Neuts % (Manual) Baso # (Auto) Lymphocytes % (Manual) Monocytes % (Manual) Eosinophils % (Manual) Basophils % (Manual) Seg Neutrophils # Seg Neutrophils # Man Lymphocytes # (Manual) Monocytes # (Manual) Eosinophils # (Manual) Nucleated RBC % Basophils # (Manual) PT INR APTT Heparin Anti-Xa Level 0.17 L ABG pH POC ABG pO2 ABG pO2 ABG HCO3 ABG O2 Saturation ABG Base Excess POC ABG pCO2 ABG Hemoglobin ABG Oxyhemoglobin ABG Chloride ABG Glucose Oxyhemoglobin Sodium Potassium Chloride Carbon Dioxide BUN Creatinine Glucose POC Glucose 120 H Lactic Acid Calcium Phosphorus Magnesium AST ALT Lactate Dehydrogenase 228 H Total Bilirubin Direct Bilirubin CK-MB (CK-2) C-Reactive Protein NT-Pro-B Natriuret Pep Total Protein Albumin Arterial Blood Glucose Urine WBC (Auto) Urine Creatinine 12/19/19 12/19/19 12/19/19 09:20 11:32 11:32 WBC 14.6 H RBC 3.08 L Hgb 9.0 L Hct 26.8 L MCHC RDW 15.9 H MCV MCH Lymph % (Auto) Miller % (Auto) Miller # Eos # Lymph # (Auto) Miller # (Auto) Eos # (Auto) Seg Neutrophils % Seg Neuts % (Manual) 82.0 H Baso # (Auto) Lymphocytes % (Manual) 10.0 L Monocytes % (Manual) Eosinophils % (Manual) Basophils % (Manual) Seg Neutrophils # Seg Neutrophils # Man 12.0 H Lymphocytes # (Manual) Monocytes # (Manual) 0.9 H Eosinophils # (Manual) Nucleated RBC % 1.0 H Basophils # (Manual) PT INR APTT Heparin Anti-Xa Level ABG pH 7.451 H POC ABG pO2 ABG pO2 62.6 L ABG HCO3 33.2 H ABG O2 Saturation 93.8 L ABG Base Excess 8.3 H POC ABG pCO2 ABG Hemoglobin 8.3 L ABG Oxyhemoglobin ABG Chloride ABG Glucose Oxyhemoglobin 91.9 L Sodium Potassium Chloride 95.0 L Carbon Dioxide 33 H BUN 22 H Creatinine 0.6 L Glucose 150 H POC Glucose Lactic Acid Calcium Phosphorus Magnesium AST ALT Lactate Dehydrogenase Total Bilirubin Direct Bilirubin CK-MB (CK-2) C-Reactive Protein NT-Pro-B Natriuret Pep Total Protein 6.2 L Albumin 2.4 L Arterial Blood Glucose Urine WBC (Auto) Urine Creatinine 12/19/19 12/19/19 12/20/19 11:56 18:17 00:09 WBC RBC Hgb Hct MCHC RDW MCV MCH Lymph % (Auto) Miller % (Auto) Miller # Eos # Lymph # (Auto) Miller # (Auto) Eos # (Auto) Seg Neutrophils % Seg Neuts % (Manual) Baso # (Auto) Lymphocytes % (Manual) Monocytes % (Manual) Eosinophils % (Manual) Basophils % (Manual) Seg Neutrophils # Seg Neutrophils # Man Lymphocytes # (Manual) Monocytes # (Manual) Eosinophils # (Manual) Nucleated RBC % Basophils # (Manual) PT INR APTT Heparin Anti-Xa Level ABG pH POC ABG pO2 ABG pO2 ABG HCO3 ABG O2 Saturation ABG Base Excess POC ABG pCO2 ABG Hemoglobin ABG Oxyhemoglobin ABG Chloride ABG Glucose Oxyhemoglobin Sodium Potassium Chloride Carbon Dioxide BUN Creatinine Glucose POC Glucose 156 H 156 H 155 H Lactic Acid Calcium Phosphorus Magnesium AST ALT Lactate Dehydrogenase Total Bilirubin Direct Bilirubin CK-MB (CK-2) C-Reactive Protein NT-Pro-B Natriuret Pep Total Protein Albumin Arterial Blood Glucose Urine WBC (Auto) Urine Creatinine 12/20/19 12/20/19 12/20/19 05:26 06:02 18:17 WBC RBC Hgb Hct MCHC RDW MCV MCH Lymph % (Auto) Miller % (Auto) Miller # Eos # Lymph # (Auto) Miller # (Auto) Eos # (Auto) Seg Neutrophils % Seg Neuts % (Manual) Baso # (Auto) Lymphocytes % (Manual) Monocytes % (Manual) Eosinophils % (Manual) Basophils % (Manual) Seg Neutrophils # Seg Neutrophils # Man Lymphocytes # (Manual) Monocytes # (Manual) Eosinophils # (Manual) Nucleated RBC % Basophils # (Manual) PT INR APTT Heparin Anti-Xa Level 0.19 L ABG pH POC ABG pO2 ABG pO2 ABG HCO3 ABG O2 Saturation ABG Base Excess POC ABG pCO2 ABG Hemoglobin ABG Oxyhemoglobin ABG Chloride ABG Glucose Oxyhemoglobin Sodium Potassium Chloride Carbon Dioxide BUN Creatinine Glucose POC Glucose 137 H 128 H Lactic Acid Calcium Phosphorus Magnesium AST ALT Lactate Dehydrogenase Total Bilirubin Direct Bilirubin CK-MB (CK-2) C-Reactive Protein NT-Pro-B Natriuret Pep Total Protein Albumin Arterial Blood Glucose Urine WBC (Auto) Urine Creatinine 12/20/19 12/21/19 12/21/19 23:34 05:31 05:31 WBC 12.7 H RBC 3.09 L Hgb 8.9 L Hct 27.4 L MCHC RDW 15.8 H MCV MCH Lymph % (Auto) 12.1 L Miller % (Auto) 7.8 H Miller # Eos # Lymph # (Auto) Miller # (Auto) 1.0 H Eos # (Auto) Seg Neutrophils % 77.1 H Seg Neuts % (Manual) Baso # (Auto) Lymphocytes % (Manual) Monocytes % (Manual) Eosinophils % (Manual) Basophils % (Manual) Seg Neutrophils # 9.8 H Seg Neutrophils # Man Lymphocytes # (Manual) Monocytes # (Manual) Eosinophils # (Manual) Nucleated RBC % Basophils # (Manual) PT INR APTT Heparin Anti-Xa Level ABG pH POC ABG pO2 ABG pO2 ABG HCO3 ABG O2 Saturation ABG Base Excess POC ABG pCO2 ABG Hemoglobin ABG Oxyhemoglobin ABG Chloride ABG Glucose Oxyhemoglobin Sodium Potassium Chloride 96.9 L Carbon Dioxide 37 H BUN 27 H Creatinine 0.7 L Glucose 140 H POC Glucose 145 H Lactic Acid Calcium Phosphorus Magnesium AST ALT Lactate Dehydrogenase Total Bilirubin Direct Bilirubin CK-MB (CK-2) C-Reactive Protein NT-Pro-B Natriuret Pep Total Protein Albumin Arterial Blood Glucose Urine WBC (Auto) Urine Creatinine 12/21/19 12/21/19 12/21/19 05:38 10:13 11:51 WBC RBC Hgb Hct MCHC RDW MCV MCH Lymph % (Auto) Miller % (Auto) Miller # Eos # Lymph # (Auto) Miller # (Auto) Eos # (Auto) Seg Neutrophils % Seg Neuts % (Manual) Baso # (Auto) Lymphocytes % (Manual) Monocytes % (Manual) Eosinophils % (Manual) Basophils % (Manual) Seg Neutrophils # Seg Neutrophils # Man Lymphocytes # (Manual) Monocytes # (Manual) Eosinophils # (Manual) Nucleated RBC % Basophils # (Manual) PT INR APTT 23.9 L Heparin Anti-Xa Level < 0.10 L ABG pH POC ABG pO2 ABG pO2 ABG HCO3 ABG O2 Saturation ABG Base Excess POC ABG pCO2 ABG Hemoglobin ABG Oxyhemoglobin ABG Chloride ABG Glucose Oxyhemoglobin Sodium Potassium Chloride Carbon Dioxide BUN Creatinine Glucose POC Glucose 151 H 145 H Lactic Acid Calcium Phosphorus Magnesium AST ALT Lactate Dehydrogenase Total Bilirubin Direct Bilirubin CK-MB (CK-2) C-Reactive Protein NT-Pro-B Natriuret Pep Total Protein Albumin Arterial Blood Glucose Urine WBC (Auto) Urine Creatinine 12/21/19 12/22/19 12/22/19 17:16 00:01 01:33 WBC RBC Hgb Hct MCHC RDW MCV MCH Lymph % (Auto) Miller % (Auto) Miller # Eos # Lymph # (Auto) Miller # (Auto) Eos # (Auto) Seg Neutrophils % Seg Neuts % (Manual) Baso # (Auto) Lymphocytes % (Manual) Monocytes % (Manual) Eosinophils % (Manual) Basophils % (Manual) Seg Neutrophils # Seg Neutrophils # Man Lymphocytes # (Manual) Monocytes # (Manual) Eosinophils # (Manual) Nucleated RBC % Basophils # (Manual) PT INR APTT Heparin Anti-Xa Level 0.10 L ABG pH POC ABG pO2 ABG pO2 ABG HCO3 ABG O2 Saturation ABG Base Excess POC ABG pCO2 ABG Hemoglobin ABG Oxyhemoglobin ABG Chloride ABG Glucose Oxyhemoglobin Sodium Potassium Chloride Carbon Dioxide BUN Creatinine Glucose POC Glucose 167 H 179 H Lactic Acid Calcium Phosphorus Magnesium AST ALT Lactate Dehydrogenase Total Bilirubin Direct Bilirubin CK-MB (CK-2) C-Reactive Protein NT-Pro-B Natriuret Pep Total Protein Albumin Arterial Blood Glucose Urine WBC (Auto) Urine Creatinine 12/22/19 12/22/19 12/22/19 03:22 05:10 05:10 WBC 13.8 H RBC 3.20 L Hgb 8.9 L Hct 28.1 L MCHC RDW 15.9 H MCV MCH Lymph % (Auto) Miller % (Auto) Miller # Eos # Lymph # (Auto) Miller # (Auto) Eos # (Auto) Seg Neutrophils % Seg Neuts % (Manual) Baso # (Auto) Lymphocytes % (Manual) Monocytes % (Manual) Eosinophils % (Manual) Basophils % (Manual) Seg Neutrophils # Seg Neutrophils # Man Lymphocytes # (Manual) Monocytes # (Manual) Eosinophils # (Manual) Nucleated RBC % Basophils # (Manual) PT INR APTT Heparin Anti-Xa Level ABG pH POC ABG pO2 52.3 L ABG pO2 ABG HCO3 ABG O2 Saturation ABG Base Excess POC ABG pCO2 52.9 H ABG Hemoglobin 10.7 L ABG Oxyhemoglobin 84 L ABG Chloride ABG Glucose Oxyhemoglobin Sodium Potassium Chloride 96.6 L Carbon Dioxide BUN 25 H Creatinine 0.7 L Glucose 129 H POC Glucose Lactic Acid Calcium Phosphorus Magnesium AST ALT Lactate Dehydrogenase Total Bilirubin Direct Bilirubin CK-MB (CK-2) C-Reactive Protein NT-Pro-B Natriuret Pep Total Protein Albumin Arterial Blood Glucose Urine WBC (Auto) Urine Creatinine 12/22/19 12/22/19 12/22/19 05:18 12:32 12:43 WBC RBC Hgb Hct MCHC RDW MCV MCH Lymph % (Auto) Miller % (Auto) Miller # Eos # Lymph # (Auto) Miller # (Auto) Eos # (Auto) Seg Neutrophils % Seg Neuts % (Manual) Baso # (Auto) Lymphocytes % (Manual) Monocytes % (Manual) Eosinophils % (Manual) Basophils % (Manual) Seg Neutrophils # Seg Neutrophils # Man Lymphocytes # (Manual) Monocytes # (Manual) Eosinophils # (Manual) Nucleated RBC % Basophils # (Manual) PT INR APTT Heparin Anti-Xa Level 0.18 L ABG pH POC ABG pO2 ABG pO2 ABG HCO3 ABG O2 Saturation ABG Base Excess POC ABG pCO2 ABG Hemoglobin ABG Oxyhemoglobin ABG Chloride ABG Glucose Oxyhemoglobin Sodium Potassium Chloride Carbon Dioxide BUN Creatinine Glucose POC Glucose 131 H 208 H Lactic Acid Calcium Phosphorus Magnesium AST ALT Lactate Dehydrogenase Total Bilirubin Direct Bilirubin CK-MB (CK-2) C-Reactive Protein NT-Pro-B Natriuret Pep Total Protein Albumin Arterial Blood Glucose Urine WBC (Auto) Urine Creatinine 12/22/19 12/22/19 12/23/19 17:44 23:20 03:51 WBC 15.2 H RBC 3.43 L Hgb 9.6 L Hct 30.3 L MCHC RDW 15.9 H MCV MCH Lymph % (Auto) Miller % (Auto) Miller # Eos # Lymph # (Auto) Miller # (Auto) Eos # (Auto) Seg Neutrophils % Seg Neuts % (Manual) Baso # (Auto) Lymphocytes % (Manual) Monocytes % (Manual) Eosinophils % (Manual) Basophils % (Manual) Seg Neutrophils # Seg Neutrophils # Man Lymphocytes # (Manual) Monocytes # (Manual) Eosinophils # (Manual) Nucleated RBC % Basophils # (Manual) PT INR APTT Heparin Anti-Xa Level ABG pH POC ABG pO2 ABG pO2 ABG HCO3 ABG O2 Saturation ABG Base Excess POC ABG pCO2 ABG Hemoglobin ABG Oxyhemoglobin ABG Chloride ABG Glucose Oxyhemoglobin Sodium Potassium Chloride Carbon Dioxide BUN Creatinine Glucose POC Glucose 209 H 119 H Lactic Acid Calcium Phosphorus Magnesium AST ALT Lactate Dehydrogenase Total Bilirubin Direct Bilirubin CK-MB (CK-2) C-Reactive Protein NT-Pro-B Natriuret Pep Total Protein Albumin Arterial Blood Glucose Urine WBC (Auto) Urine Creatinine 12/23/19 12/23/19 12/23/19 03:51 05:31 12:09 WBC RBC Hgb Hct MCHC RDW MCV MCH Lymph % (Auto) Miller % (Auto) Miller # Eos # Lymph # (Auto) Miller # (Auto) Eos # (Auto) Seg Neutrophils % Seg Neuts % (Manual) Baso # (Auto) Lymphocytes % (Manual) Monocytes % (Manual) Eosinophils % (Manual) Basophils % (Manual) Seg Neutrophils # Seg Neutrophils # Man Lymphocytes # (Manual) Monocytes # (Manual) Eosinophils # (Manual) Nucleated RBC % Basophils # (Manual) PT INR APTT Heparin Anti-Xa Level ABG pH POC ABG pO2 ABG pO2 ABG HCO3 ABG O2 Saturation ABG Base Excess POC ABG pCO2 ABG Hemoglobin ABG Oxyhemoglobin ABG Chloride ABG Glucose Oxyhemoglobin Sodium Potassium Chloride 97.2 L Carbon Dioxide 31 H BUN 23 H Creatinine 0.6 L Glucose 153 H POC Glucose 149 H 144 H Lactic Acid Calcium Phosphorus Magnesium AST ALT Lactate Dehydrogenase Total Bilirubin Direct Bilirubin CK-MB (CK-2) C-Reactive Protein NT-Pro-B Natriuret Pep Total Protein Albumin Arterial Blood Glucose Urine WBC (Auto) Urine Creatinine 12/23/19 12/23/19 12/23/19 15:30 17:49 23:31 WBC RBC Hgb Hct MCHC RDW MCV MCH Lymph % (Auto) Miller % (Auto) Miller # Eos # Lymph # (Auto) Miller # (Auto) Eos # (Auto) Seg Neutrophils % Seg Neuts % (Manual) Baso # (Auto) Lymphocytes % (Manual) Monocytes % (Manual) Eosinophils % (Manual) Basophils % (Manual) Seg Neutrophils # Seg Neutrophils # Man Lymphocytes # (Manual) Monocytes # (Manual) Eosinophils # (Manual) Nucleated RBC % Basophils # (Manual) PT INR APTT Heparin Anti-Xa Level 0.21 L ABG pH POC ABG pO2 ABG pO2 ABG HCO3 ABG O2 Saturation ABG Base Excess POC ABG pCO2 ABG Hemoglobin ABG Oxyhemoglobin ABG Chloride ABG Glucose Oxyhemoglobin Sodium Potassium Chloride Carbon Dioxide BUN Creatinine Glucose POC Glucose 192 H 151 H Lactic Acid Calcium Phosphorus Magnesium AST ALT Lactate Dehydrogenase Total Bilirubin Direct Bilirubin CK-MB (CK-2) C-Reactive Protein NT-Pro-B Natriuret Pep Total Protein Albumin Arterial Blood Glucose Urine WBC (Auto) Urine Creatinine 12/24/19 12/24/19 12/24/19 05:34 12:13 16:50 WBC RBC Hgb Hct MCHC RDW MCV MCH Lymph % (Auto) Miller % (Auto) Miller # Eos # Lymph # (Auto) Miller # (Auto) Eos # (Auto) Seg Neutrophils % Seg Neuts % (Manual) Baso # (Auto) Lymphocytes % (Manual) Monocytes % (Manual) Eosinophils % (Manual) Basophils % (Manual) Seg Neutrophils # Seg Neutrophils # Man Lymphocytes # (Manual) Monocytes # (Manual) Eosinophils # (Manual) Nucleated RBC % Basophils # (Manual) PT INR APTT Heparin Anti-Xa Level 0.16 L ABG pH POC ABG pO2 ABG pO2 ABG HCO3 ABG O2 Saturation ABG Base Excess POC ABG pCO2 ABG Hemoglobin ABG Oxyhemoglobin ABG Chloride ABG Glucose Oxyhemoglobin Sodium Potassium Chloride Carbon Dioxide BUN Creatinine Glucose POC Glucose 145 H 124 H Lactic Acid Calcium Phosphorus Magnesium AST ALT Lactate Dehydrogenase Total Bilirubin Direct Bilirubin CK-MB (CK-2) C-Reactive Protein NT-Pro-B Natriuret Pep Total Protein Albumin Arterial Blood Glucose Urine WBC (Auto) Urine Creatinine 12/24/19 12/25/19 12/25/19 17:53 00:14 04:18 WBC 12.9 H RBC 3.30 L Hgb 9.1 L Hct 28.8 L MCHC RDW 16.4 H MCV MCH Lymph % (Auto) Miller % (Auto) 7.8 H Miller # Eos # Lymph # (Auto) Miller # (Auto) 1.0 H Eos # (Auto) Seg Neutrophils % 75.5 H Seg Neuts % (Manual) Baso # (Auto) Lymphocytes % (Manual) Monocytes % (Manual) Eosinophils % (Manual) Basophils % (Manual) Seg Neutrophils # 9.7 H Seg Neutrophils # Man Lymphocytes # (Manual) Monocytes # (Manual) Eosinophils # (Manual) Nucleated RBC % Basophils # (Manual) PT INR APTT Heparin Anti-Xa Level ABG pH POC ABG pO2 ABG pO2 ABG HCO3 ABG O2 Saturation ABG Base Excess POC ABG pCO2 ABG Hemoglobin ABG Oxyhemoglobin ABG Chloride ABG Glucose Oxyhemoglobin Sodium Potassium Chloride Carbon Dioxide BUN Creatinine Glucose POC Glucose 164 H 148 H Lactic Acid Calcium Phosphorus Magnesium AST ALT Lactate Dehydrogenase Total Bilirubin Direct Bilirubin CK-MB (CK-2) C-Reactive Protein NT-Pro-B Natriuret Pep Total Protein Albumin Arterial Blood Glucose Urine WBC (Auto) Urine Creatinine 12/25/19 12/25/19 12/25/19 04:18 05:38 11:44 WBC RBC Hgb Hct MCHC RDW MCV MCH Lymph % (Auto) Miller % (Auto) Miller # Eos # Lymph # (Auto) Miller # (Auto) Eos # (Auto) Seg Neutrophils % Seg Neuts % (Manual) Baso # (Auto) Lymphocytes % (Manual) Monocytes % (Manual) Eosinophils % (Manual) Basophils % (Manual) Seg Neutrophils # Seg Neutrophils # Man Lymphocytes # (Manual) Monocytes # (Manual) Eosinophils # (Manual) Nucleated RBC % Basophils # (Manual) PT INR APTT Heparin Anti-Xa Level ABG pH POC ABG pO2 ABG pO2 ABG HCO3 ABG O2 Saturation ABG Base Excess POC ABG pCO2 ABG Hemoglobin ABG Oxyhemoglobin ABG Chloride ABG Glucose Oxyhemoglobin Sodium Potassium Chloride Carbon Dioxide 33 H BUN 27 H Creatinine 0.6 L Glucose 132 H POC Glucose 152 H 166 H Lactic Acid Calcium Phosphorus Magnesium AST ALT Lactate Dehydrogenase Total Bilirubin Direct Bilirubin CK-MB (CK-2) C-Reactive Protein NT-Pro-B Natriuret Pep Total Protein Albumin Arterial Blood Glucose Urine WBC (Auto) Urine Creatinine 12/25/19 12/26/19 12/26/19 18:29 00:17 00:18 WBC RBC Hgb Hct MCHC RDW MCV MCH Lymph % (Auto) Miller % (Auto) Miller # Eos # Lymph # (Auto) Miller # (Auto) Eos # (Auto) Seg Neutrophils % Seg Neuts % (Manual) Baso # (Auto) Lymphocytes % (Manual) Monocytes % (Manual) Eosinophils % (Manual) Basophils % (Manual) Seg Neutrophils # Seg Neutrophils # Man Lymphocytes # (Manual) Monocytes # (Manual) Eosinophils # (Manual) Nucleated RBC % Basophils # (Manual) PT INR APTT Heparin Anti-Xa Level ABG pH POC ABG pO2 ABG pO2 ABG HCO3 ABG O2 Saturation ABG Base Excess POC ABG pCO2 ABG Hemoglobin ABG Oxyhemoglobin ABG Chloride ABG Glucose Oxyhemoglobin Sodium Potassium Chloride 97.8 L Carbon Dioxide BUN 25 H Creatinine 0.6 L Glucose 140 H POC Glucose 194 H 151 H Lactic Acid Calcium Phosphorus Magnesium AST ALT Lactate Dehydrogenase Total Bilirubin Direct Bilirubin CK-MB (CK-2) C-Reactive Protein NT-Pro-B Natriuret Pep Total Protein Albumin Arterial Blood Glucose Urine WBC (Auto) Urine Creatinine 12/26/19 12/26/19 12/26/19 05:36 11:41 17:50 WBC RBC Hgb Hct MCHC RDW MCV MCH Lymph % (Auto) Miller % (Auto) Miller # Eos # Lymph # (Auto) Miller # (Auto) Eos # (Auto) Seg Neutrophils % Seg Neuts % (Manual) Baso # (Auto) Lymphocytes % (Manual) Monocytes % (Manual) Eosinophils % (Manual) Basophils % (Manual) Seg Neutrophils # Seg Neutrophils # Man Lymphocytes # (Manual) Monocytes # (Manual) Eosinophils # (Manual) Nucleated RBC % Basophils # (Manual) PT INR APTT Heparin Anti-Xa Level ABG pH POC ABG pO2 ABG pO2 ABG HCO3 ABG O2 Saturation ABG Base Excess POC ABG pCO2 ABG Hemoglobin ABG Oxyhemoglobin ABG Chloride ABG Glucose Oxyhemoglobin Sodium Potassium Chloride Carbon Dioxide BUN Creatinine Glucose POC Glucose 156 H 148 H 139 H Lactic Acid Calcium Phosphorus Magnesium AST ALT Lactate Dehydrogenase Total Bilirubin Direct Bilirubin CK-MB (CK-2) C-Reactive Protein NT-Pro-B Natriuret Pep Total Protein Albumin Arterial Blood Glucose Urine WBC (Auto) Urine Creatinine 12/26/19 12/27/19 12/27/19 23:19 05:34 12:02 WBC RBC Hgb Hct MCHC RDW MCV MCH Lymph % (Auto) Miller % (Auto) Miller # Eos # Lymph # (Auto) Miller # (Auto) Eos # (Auto) Seg Neutrophils % Seg Neuts % (Manual) Baso # (Auto) Lymphocytes % (Manual) Monocytes % (Manual) Eosinophils % (Manual) Basophils % (Manual) Seg Neutrophils # Seg Neutrophils # Man Lymphocytes # (Manual) Monocytes # (Manual) Eosinophils # (Manual) Nucleated RBC % Basophils # (Manual) PT INR APTT Heparin Anti-Xa Level ABG pH POC ABG pO2 ABG pO2 ABG HCO3 ABG O2 Saturation ABG Base Excess POC ABG pCO2 ABG Hemoglobin ABG Oxyhemoglobin ABG Chloride ABG Glucose Oxyhemoglobin Sodium Potassium Chloride Carbon Dioxide BUN Creatinine Glucose POC Glucose 161 H 145 H 157 H Lactic Acid Calcium Phosphorus Magnesium AST ALT Lactate Dehydrogenase Total Bilirubin Direct Bilirubin CK-MB (CK-2) C-Reactive Protein NT-Pro-B Natriuret Pep Total Protein Albumin Arterial Blood Glucose Urine WBC (Auto) Urine Creatinine 12/27/19 12/27/19 12/27/19 17:35 20:11 23:00 WBC RBC Hgb Hct MCHC RDW MCV MCH Lymph % (Auto) Miller % (Auto) Miller # Eos # Lymph # (Auto) Miller # (Auto) Eos # (Auto) Seg Neutrophils % Seg Neuts % (Manual) Baso # (Auto) Lymphocytes % (Manual) Monocytes % (Manual) Eosinophils % (Manual) Basophils % (Manual) Seg Neutrophils # Seg Neutrophils # Man Lymphocytes # (Manual) Monocytes # (Manual) Eosinophils # (Manual) Nucleated RBC % Basophils # (Manual) PT INR APTT Heparin Anti-Xa Level 0.19 L ABG pH POC ABG pO2 ABG pO2 ABG HCO3 ABG O2 Saturation ABG Base Excess POC ABG pCO2 ABG Hemoglobin ABG Oxyhemoglobin ABG Chloride ABG Glucose Oxyhemoglobin Sodium Potassium Chloride Carbon Dioxide BUN Creatinine Glucose POC Glucose 158 H 155 H Lactic Acid Calcium Phosphorus Magnesium AST ALT Lactate Dehydrogenase Total Bilirubin Direct Bilirubin CK-MB (CK-2) C-Reactive Protein NT-Pro-B Natriuret Pep Total Protein Albumin Arterial Blood Glucose Urine WBC (Auto) Urine Creatinine 12/27/19 12/28/19 12/28/19 23:45 02:41 02:41 WBC 13.0 H RBC 3.48 L Hgb 9.5 L Hct 30.6 L MCHC 31 L RDW 16.6 H MCV MCH 27 L Lymph % (Auto) 13.0 L Miller % (Auto) 8.0 H Miller # Eos # Lymph # (Auto) Miller # (Auto) 1.0 H Eos # (Auto) Seg Neutrophils % 76.3 H Seg Neuts % (Manual) Baso # (Auto) Lymphocytes % (Manual) Monocytes % (Manual) Eosinophils % (Manual) Basophils % (Manual) Seg Neutrophils # 9.9 H Seg Neutrophils # Man Lymphocytes # (Manual) Monocytes # (Manual) Eosinophils # (Manual) Nucleated RBC % Basophils # (Manual) PT INR APTT Heparin Anti-Xa Level ABG pH POC ABG pO2 ABG pO2 ABG HCO3 ABG O2 Saturation ABG Base Excess POC ABG pCO2 ABG Hemoglobin ABG Oxyhemoglobin ABG Chloride ABG Glucose Oxyhemoglobin Sodium Potassium Chloride Carbon Dioxide BUN 22 H Creatinine 0.6 L Glucose 101 H POC Glucose 130 H Lactic Acid Calcium Phosphorus Magnesium AST ALT Lactate Dehydrogenase Total Bilirubin Direct Bilirubin CK-MB (CK-2) C-Reactive Protein NT-Pro-B Natriuret Pep Total Protein Albumin Arterial Blood Glucose Urine WBC (Auto) Urine Creatinine 12/28/19 12/28/19 12/28/19 06:00 12:34 18:13 WBC RBC Hgb Hct MCHC RDW MCV MCH Lymph % (Auto) Miller % (Auto) Miller # Eos # Lymph # (Auto) Miller # (Auto) Eos # (Auto) Seg Neutrophils % Seg Neuts % (Manual) Baso # (Auto) Lymphocytes % (Manual) Monocytes % (Manual) Eosinophils % (Manual) Basophils % (Manual) Seg Neutrophils # Seg Neutrophils # Man Lymphocytes # (Manual) Monocytes # (Manual) Eosinophils # (Manual) Nucleated RBC % Basophils # (Manual) PT INR APTT Heparin Anti-Xa Level ABG pH POC ABG pO2 ABG pO2 ABG HCO3 ABG O2 Saturation ABG Base Excess POC ABG pCO2 ABG Hemoglobin ABG Oxyhemoglobin ABG Chloride ABG Glucose Oxyhemoglobin Sodium Potassium Chloride Carbon Dioxide BUN Creatinine Glucose POC Glucose 150 H 161 H 128 H Lactic Acid Calcium Phosphorus Magnesium AST ALT Lactate Dehydrogenase Total Bilirubin Direct Bilirubin CK-MB (CK-2) C-Reactive Protein NT-Pro-B Natriuret Pep Total Protein Albumin Arterial Blood Glucose Urine WBC (Auto) Urine Creatinine 12/28/19 12/29/19 12/29/19 23:36 05:21 11:40 WBC RBC Hgb Hct MCHC RDW MCV MCH Lymph % (Auto) Miller % (Auto) Miller # Eos # Lymph # (Auto) Miller # (Auto) Eos # (Auto) Seg Neutrophils % Seg Neuts % (Manual) Baso # (Auto) Lymphocytes % (Manual) Monocytes % (Manual) Eosinophils % (Manual) Basophils % (Manual) Seg Neutrophils # Seg Neutrophils # Man Lymphocytes # (Manual) Monocytes # (Manual) Eosinophils # (Manual) Nucleated RBC % Basophils # (Manual) PT INR APTT Heparin Anti-Xa Level ABG pH POC ABG pO2 ABG pO2 ABG HCO3 ABG O2 Saturation ABG Base Excess POC ABG pCO2 ABG Hemoglobin ABG Oxyhemoglobin ABG Chloride ABG Glucose Oxyhemoglobin Sodium Potassium Chloride Carbon Dioxide BUN Creatinine Glucose POC Glucose 137 H 136 H 166 H Lactic Acid Calcium Phosphorus Magnesium AST ALT Lactate Dehydrogenase Total Bilirubin Direct Bilirubin CK-MB (CK-2) C-Reactive Protein NT-Pro-B Natriuret Pep Total Protein Albumin Arterial Blood Glucose Urine WBC (Auto) Urine Creatinine 12/29/19 12/29/19 12/29/19 17:23 19:21 23:38 WBC RBC Hgb Hct MCHC RDW MCV MCH Lymph % (Auto) Miller % (Auto) Miller # Eos # Lymph # (Auto) Miller # (Auto) Eos # (Auto) Seg Neutrophils % Seg Neuts % (Manual) Baso # (Auto) Lymphocytes % (Manual) Monocytes % (Manual) Eosinophils % (Manual) Basophils % (Manual) Seg Neutrophils # Seg Neutrophils # Man Lymphocytes # (Manual) Monocytes # (Manual) Eosinophils # (Manual) Nucleated RBC % Basophils # (Manual) PT INR APTT Heparin Anti-Xa Level 0.20 L ABG pH POC ABG pO2 ABG pO2 ABG HCO3 ABG O2 Saturation ABG Base Excess POC ABG pCO2 ABG Hemoglobin ABG Oxyhemoglobin ABG Chloride ABG Glucose Oxyhemoglobin Sodium Potassium Chloride Carbon Dioxide BUN Creatinine Glucose POC Glucose 144 H 141 H Lactic Acid Calcium Phosphorus Magnesium AST ALT Lactate Dehydrogenase Total Bilirubin Direct Bilirubin CK-MB (CK-2) C-Reactive Protein NT-Pro-B Natriuret Pep Total Protein Albumin Arterial Blood Glucose Urine WBC (Auto) Urine Creatinine 12/30/19 12/30/19 12/30/19 03:58 03:58 04:59 WBC RBC 3.54 L Hgb 9.8 L Hct 30.7 L MCHC RDW 16.8 H MCV MCH Lymph % (Auto) Miller % (Auto) Miller # Eos # Lymph # (Auto) Miller # (Auto) Eos # (Auto) Seg Neutrophils % Seg Neuts % (Manual) Baso # (Auto) Lymphocytes % (Manual) Monocytes % (Manual) Eosinophils % (Manual) Basophils % (Manual) Seg Neutrophils # Seg Neutrophils # Man Lymphocytes # (Manual) Monocytes # (Manual) Eosinophils # (Manual) Nucleated RBC % Basophils # (Manual) PT INR APTT Heparin Anti-Xa Level ABG pH POC ABG pO2 ABG pO2 ABG HCO3 29.8 H ABG O2 Saturation ABG Base Excess 4.8 H POC ABG pCO2 ABG Hemoglobin 11.2 L ABG Oxyhemoglobin ABG Chloride ABG Glucose Oxyhemoglobin 93.8 L Sodium Potassium Chloride 97.8 L Carbon Dioxide BUN 26 H Creatinine Glucose 168 H POC Glucose Lactic Acid Calcium Phosphorus Magnesium AST ALT Lactate Dehydrogenase Total Bilirubin Direct Bilirubin CK-MB (CK-2) C-Reactive Protein NT-Pro-B Natriuret Pep Total Protein Albumin Arterial Blood Glucose Urine WBC (Auto) Urine Creatinine 12/30/19 12/30/19 12/30/19 05:45 11:34 17:28 WBC RBC Hgb Hct MCHC RDW MCV MCH Lymph % (Auto) Miller % (Auto) Miller # Eos # Lymph # (Auto) Miller # (Auto) Eos # (Auto) Seg Neutrophils % Seg Neuts % (Manual) Baso # (Auto) Lymphocytes % (Manual) Monocytes % (Manual) Eosinophils % (Manual) Basophils % (Manual) Seg Neutrophils # Seg Neutrophils # Man Lymphocytes # (Manual) Monocytes # (Manual) Eosinophils # (Manual) Nucleated RBC % Basophils # (Manual) PT INR APTT Heparin Anti-Xa Level ABG pH POC ABG pO2 ABG pO2 ABG HCO3 ABG O2 Saturation ABG Base Excess POC ABG pCO2 ABG Hemoglobin ABG Oxyhemoglobin ABG Chloride ABG Glucose Oxyhemoglobin Sodium Potassium Chloride Carbon Dioxide BUN Creatinine Glucose POC Glucose 163 H 180 H 150 H Lactic Acid Calcium Phosphorus Magnesium AST ALT Lactate Dehydrogenase Total Bilirubin Direct Bilirubin CK-MB (CK-2) C-Reactive Protein NT-Pro-B Natriuret Pep Total Protein Albumin Arterial Blood Glucose Urine WBC (Auto) Urine Creatinine 12/30/19 12/31/19 12/31/19 23:43 04:55 05:07 WBC RBC Hgb Hct MCHC RDW MCV MCH Lymph % (Auto) Miller % (Auto) Miller # Eos # Lymph # (Auto) Miller # (Auto) Eos # (Auto) Seg Neutrophils % Seg Neuts % (Manual) Baso # (Auto) Lymphocytes % (Manual) Monocytes % (Manual) Eosinophils % (Manual) Basophils % (Manual) Seg Neutrophils # Seg Neutrophils # Man Lymphocytes # (Manual) Monocytes # (Manual) Eosinophils # (Manual) Nucleated RBC % Basophils # (Manual) PT INR APTT Heparin Anti-Xa Level ABG pH POC ABG pO2 ABG pO2 ABG HCO3 ABG O2 Saturation ABG Base Excess POC ABG pCO2 ABG Hemoglobin ABG Oxyhemoglobin ABG Chloride ABG Glucose Oxyhemoglobin Sodium Potassium 5.6 H D Chloride Carbon Dioxide BUN 33 H Creatinine Glucose 131 H POC Glucose 142 H 134 H Lactic Acid Calcium Phosphorus Magnesium AST ALT Lactate Dehydrogenase Total Bilirubin Direct Bilirubin CK-MB (CK-2) C-Reactive Protein NT-Pro-B Natriuret Pep Total Protein Albumin Arterial Blood Glucose Urine WBC (Auto) Urine Creatinine 12/31/19 12/31/19 12/31/19 11:30 17:19 17:36 WBC RBC Hgb Hct MCHC RDW MCV MCH Lymph % (Auto) Miller % (Auto) Miller # Eos # Lymph # (Auto) Miller # (Auto) Eos # (Auto) Seg Neutrophils % Seg Neuts % (Manual) Baso # (Auto) Lymphocytes % (Manual) Monocytes % (Manual) Eosinophils % (Manual) Basophils % (Manual) Seg Neutrophils # Seg Neutrophils # Man Lymphocytes # (Manual) Monocytes # (Manual) Eosinophils # (Manual) Nucleated RBC % Basophils # (Manual) PT INR APTT Heparin Anti-Xa Level ABG pH POC ABG pO2 ABG pO2 ABG HCO3 ABG O2 Saturation ABG Base Excess POC ABG pCO2 ABG Hemoglobin ABG Oxyhemoglobin ABG Chloride ABG Glucose Oxyhemoglobin Sodium Potassium Chloride Carbon Dioxide BUN 35 H Creatinine Glucose 156 H POC Glucose 158 H 181 H Lactic Acid Calcium Phosphorus Magnesium AST ALT Lactate Dehydrogenase Total Bilirubin Direct Bilirubin CK-MB (CK-2) C-Reactive Protein NT-Pro-B Natriuret Pep Total Protein Albumin Arterial Blood Glucose Urine WBC (Auto) Urine Creatinine 12/31/19 12/31/19 12/31/19 18:16 19:41 21:53 WBC RBC Hgb Hct MCHC RDW MCV MCH Lymph % (Auto) Miller % (Auto) Miller # Eos # Lymph # (Auto) Miller # (Auto) Eos # (Auto) Seg Neutrophils % Seg Neuts % (Manual) Baso # (Auto) Lymphocytes % (Manual) Monocytes % (Manual) Eosinophils % (Manual) Basophils % (Manual) Seg Neutrophils # Seg Neutrophils # Man Lymphocytes # (Manual) Monocytes # (Manual) Eosinophils # (Manual) Nucleated RBC % Basophils # (Manual) PT INR APTT Heparin Anti-Xa Level 0.20 L ABG pH POC ABG pO2 ABG pO2 ABG HCO3 ABG O2 Saturation ABG Base Excess POC ABG pCO2 ABG Hemoglobin ABG Oxyhemoglobin ABG Chloride ABG Glucose Oxyhemoglobin Sodium Potassium Chloride Carbon Dioxide BUN 34 H Creatinine Glucose 169 H POC Glucose 141 H Lactic Acid Calcium Phosphorus Magnesium AST ALT Lactate Dehydrogenase Total Bilirubin Direct Bilirubin CK-MB (CK-2) C-Reactive Protein NT-Pro-B Natriuret Pep Total Protein Albumin Arterial Blood Glucose Urine WBC (Auto) Urine Creatinine 12/31/19 01/01/20 01/01/20 23:51 05:17 10:40 WBC RBC Hgb Hct MCHC RDW MCV MCH Lymph % (Auto) Miller % (Auto) Miller # Eos # Lymph # (Auto) Miller # (Auto) Eos # (Auto) Seg Neutrophils % Seg Neuts % (Manual) Baso # (Auto) Lymphocytes % (Manual) Monocytes % (Manual) Eosinophils % (Manual) Basophils % (Manual) Seg Neutrophils # Seg Neutrophils # Man Lymphocytes # (Manual) Monocytes # (Manual) Eosinophils # (Manual) Nucleated RBC % Basophils # (Manual) PT INR APTT Heparin Anti-Xa Level ABG pH POC ABG pO2 ABG pO2 ABG HCO3 ABG O2 Saturation ABG Base Excess POC ABG pCO2 ABG Hemoglobin ABG Oxyhemoglobin ABG Chloride ABG Glucose Oxyhemoglobin Sodium Potassium Chloride Carbon Dioxide BUN 31 H Creatinine 0.7 L Glucose 137 H POC Glucose 131 H 155 H Lactic Acid Calcium Phosphorus Magnesium AST 73 H ALT 97 H Lactate Dehydrogenase Total Bilirubin Direct Bilirubin CK-MB (CK-2) C-Reactive Protein NT-Pro-B Natriuret Pep 3866 H Total Protein Albumin 2.8 L Arterial Blood Glucose Urine WBC (Auto) Urine Creatinine 01/01/20 01/01/20 01/01/20 12:26 15:33 17:53 WBC 14.3 H RBC 3.35 L Hgb 9.1 L Hct 28.8 L MCHC RDW 17.0 H MCV MCH 27 L Lymph % (Auto) 7.0 L Miller % (Auto) 7.6 H Miller # Eos # Lymph # (Auto) 1.0 L Miller # (Auto) 1.1 H Eos # (Auto) Seg Neutrophils % 83.3 H Seg Neuts % (Manual) Baso # (Auto) Lymphocytes % (Manual) Monocytes % (Manual) Eosinophils % (Manual) Basophils % (Manual) Seg Neutrophils # 12.0 H Seg Neutrophils # Man Lymphocytes # (Manual) Monocytes # (Manual) Eosinophils # (Manual) Nucleated RBC % Basophils # (Manual) PT INR APTT Heparin Anti-Xa Level ABG pH POC ABG pO2 ABG pO2 ABG HCO3 ABG O2 Saturation ABG Base Excess POC ABG pCO2 ABG Hemoglobin ABG Oxyhemoglobin ABG Chloride ABG Glucose Oxyhemoglobin Sodium Potassium Chloride Carbon Dioxide BUN Creatinine Glucose POC Glucose 128 H 128 H Lactic Acid Calcium Phosphorus Magnesium AST ALT Lactate Dehydrogenase Total Bilirubin Direct Bilirubin CK-MB (CK-2) C-Reactive Protein NT-Pro-B Natriuret Pep Total Protein Albumin Arterial Blood Glucose Urine WBC (Auto) Urine Creatinine 01/01/20 01/02/20 01/02/20 23:04 05:39 07:00 WBC RBC Hgb Hct MCHC RDW MCV MCH Lymph % (Auto) Miller % (Auto) Miller # Eos # Lymph # (Auto) Miller # (Auto) Eos # (Auto) Seg Neutrophils % Seg Neuts % (Manual) Baso # (Auto) Lymphocytes % (Manual) Monocytes % (Manual) Eosinophils % (Manual) Basophils % (Manual) Seg Neutrophils # Seg Neutrophils # Man Lymphocytes # (Manual) Monocytes # (Manual) Eosinophils # (Manual) Nucleated RBC % Basophils # (Manual) PT INR APTT Heparin Anti-Xa Level 0.13 L ABG pH POC ABG pO2 ABG pO2 ABG HCO3 ABG O2 Saturation ABG Base Excess POC ABG pCO2 ABG Hemoglobin ABG Oxyhemoglobin ABG Chloride ABG Glucose Oxyhemoglobin Sodium Potassium Chloride Carbon Dioxide BUN Creatinine Glucose POC Glucose 120 H 169 H Lactic Acid Calcium Phosphorus Magnesium AST ALT Lactate Dehydrogenase Total Bilirubin Direct Bilirubin CK-MB (CK-2) C-Reactive Protein NT-Pro-B Natriuret Pep Total Protein Albumin Arterial Blood Glucose Urine WBC (Auto) Urine Creatinine 01/02/20 01/02/20 01/02/20 12:15 14:06 17:58 WBC RBC Hgb Hct MCHC RDW MCV MCH Lymph % (Auto) Miller % (Auto) Miller # Eos # Lymph # (Auto) Miller # (Auto) Eos # (Auto) Seg Neutrophils % Seg Neuts % (Manual) Baso # (Auto) Lymphocytes % (Manual) Monocytes % (Manual) Eosinophils % (Manual) Basophils % (Manual) Seg Neutrophils # Seg Neutrophils # Man Lymphocytes # (Manual) Monocytes # (Manual) Eosinophils # (Manual) Nucleated RBC % Basophils # (Manual) PT INR APTT Heparin Anti-Xa Level < 0.10 L ABG pH POC ABG pO2 ABG pO2 ABG HCO3 ABG O2 Saturation ABG Base Excess POC ABG pCO2 ABG Hemoglobin ABG Oxyhemoglobin ABG Chloride ABG Glucose Oxyhemoglobin Sodium Potassium Chloride Carbon Dioxide BUN Creatinine Glucose POC Glucose 190 H 198 H Lactic Acid Calcium Phosphorus Magnesium AST ALT Lactate Dehydrogenase Total Bilirubin Direct Bilirubin CK-MB (CK-2) C-Reactive Protein NT-Pro-B Natriuret Pep Total Protein Albumin Arterial Blood Glucose Urine WBC (Auto) Urine Creatinine 01/02/20 01/02/20 01/03/20 21:43 23:33 05:42 WBC RBC Hgb Hct MCHC RDW MCV MCH Lymph % (Auto) Miller % (Auto) Miller # Eos # Lymph # (Auto) Miller # (Auto) Eos # (Auto) Seg Neutrophils % Seg Neuts % (Manual) Baso # (Auto) Lymphocytes % (Manual) Monocytes % (Manual) Eosinophils % (Manual) Basophils % (Manual) Seg Neutrophils # Seg Neutrophils # Man Lymphocytes # (Manual) Monocytes # (Manual) Eosinophils # (Manual) Nucleated RBC % Basophils # (Manual) PT INR APTT Heparin Anti-Xa Level 0.10 L ABG pH POC ABG pO2 ABG pO2 ABG HCO3 ABG O2 Saturation ABG Base Excess POC ABG pCO2 ABG Hemoglobin ABG Oxyhemoglobin ABG Chloride ABG Glucose Oxyhemoglobin Sodium Potassium Chloride Carbon Dioxide BUN Creatinine Glucose POC Glucose 180 H 163 H Lactic Acid Calcium Phosphorus Magnesium AST ALT Lactate Dehydrogenase Total Bilirubin Direct Bilirubin CK-MB (CK-2) C-Reactive Protein NT-Pro-B Natriuret Pep Total Protein Albumin Arterial Blood Glucose Urine WBC (Auto) Urine Creatinine 01/03/20 01/03/20 01/03/20 06:50 07:25 07:45 WBC 12.1 H RBC 3.35 L Hgb 9.0 L Hct 28.9 L MCHC 31 L RDW 16.6 H MCV MCH 27 L Lymph % (Auto) 13.0 L Miller % (Auto) 8.6 H Miller # Eos # Lymph # (Auto) Miller # (Auto) 1.0 H Eos # (Auto) Seg Neutrophils % 75.9 H Seg Neuts % (Manual) Baso # (Auto) Lymphocytes % (Manual) Monocytes % (Manual) Eosinophils % (Manual) Basophils % (Manual) Seg Neutrophils # 9.2 H Seg Neutrophils # Man Lymphocytes # (Manual) Monocytes # (Manual) Eosinophils # (Manual) Nucleated RBC % Basophils # (Manual) PT INR APTT Heparin Anti-Xa Level 0.29 L ABG pH POC ABG pO2 ABG pO2 ABG HCO3 ABG O2 Saturation ABG Base Excess POC ABG pCO2 ABG Hemoglobin ABG Oxyhemoglobin ABG Chloride ABG Glucose Oxyhemoglobin Sodium Potassium 3.3 L D Chloride Carbon Dioxide 35 H D BUN 23 H Creatinine 0.6 L Glucose 149 H POC Glucose Lactic Acid Calcium Phosphorus Magnesium AST ALT 88 H Lactate Dehydrogenase Total Bilirubin Direct Bilirubin CK-MB (CK-2) C-Reactive Protein NT-Pro-B Natriuret Pep Total Protein 6.2 L Albumin 2.9 L Arterial Blood Glucose Urine WBC (Auto) Urine Creatinine 01/03/20 01/03/20 01/03/20 12:05 17:42 18:30 WBC RBC Hgb Hct MCHC RDW MCV MCH Lymph % (Auto) Miller % (Auto) Miller # Eos # Lymph # (Auto) Miller # (Auto) Eos # (Auto) Seg Neutrophils % Seg Neuts % (Manual) Baso # (Auto) Lymphocytes % (Manual) Monocytes % (Manual) Eosinophils % (Manual) Basophils % (Manual) Seg Neutrophils # Seg Neutrophils # Man Lymphocytes # (Manual) Monocytes # (Manual) Eosinophils # (Manual) Nucleated RBC % Basophils # (Manual) PT INR APTT Heparin Anti-Xa Level ABG pH POC ABG pO2 ABG pO2 70.7 L ABG HCO3 36.1 H ABG O2 Saturation 94.4 L ABG Base Excess 10.0 H POC ABG pCO2 ABG Hemoglobin 9.7 L ABG Oxyhemoglobin ABG Chloride ABG Glucose Oxyhemoglobin 91.8 L Sodium Potassium Chloride Carbon Dioxide BUN Creatinine Glucose POC Glucose 128 H 132 H Lactic Acid Calcium Phosphorus Magnesium AST ALT Lactate Dehydrogenase Total Bilirubin Direct Bilirubin CK-MB (CK-2) C-Reactive Protein NT-Pro-B Natriuret Pep Total Protein Albumin Arterial Blood Glucose Urine WBC (Auto) Urine Creatinine 01/04/20 01/04/20 01/04/20 00:10 04:26 05:23 WBC RBC Hgb Hct MCHC RDW MCV MCH Lymph % (Auto) Miller % (Auto) Miller # Eos # Lymph # (Auto) Miller # (Auto) Eos # (Auto) Seg Neutrophils % Seg Neuts % (Manual) Baso # (Auto) Lymphocytes % (Manual) Monocytes % (Manual) Eosinophils % (Manual) Basophils % (Manual) Seg Neutrophils # Seg Neutrophils # Man Lymphocytes # (Manual) Monocytes # (Manual) Eosinophils # (Manual) Nucleated RBC % Basophils # (Manual) PT INR APTT Heparin Anti-Xa Level 0.16 L ABG pH POC ABG pO2 ABG pO2 ABG HCO3 ABG O2 Saturation ABG Base Excess POC ABG pCO2 ABG Hemoglobin ABG Oxyhemoglobin ABG Chloride ABG Glucose Oxyhemoglobin Sodium Potassium Chloride Carbon Dioxide BUN Creatinine Glucose POC Glucose 121 H 119 H Lactic Acid Calcium Phosphorus Magnesium AST ALT Lactate Dehydrogenase Total Bilirubin Direct Bilirubin CK-MB (CK-2) C-Reactive Protein NT-Pro-B Natriuret Pep Total Protein Albumin Arterial Blood Glucose Urine WBC (Auto) Urine Creatinine 01/04/20 01/04/20 01/04/20 09:50 09:50 12:18 WBC 15.4 H RBC 3.30 L Hgb 8.7 L Hct 28.2 L MCHC 31 L RDW 17.0 H MCV MCH 26 L Lymph % (Auto) Miller % (Auto) 7.6 H Miller # Eos # Lymph # (Auto) Miller # (Auto) 1.2 H Eos # (Auto) Seg Neutrophils % 75.4 H Seg Neuts % (Manual) Baso # (Auto) Lymphocytes % (Manual) Monocytes % (Manual) Eosinophils % (Manual) Basophils % (Manual) Seg Neutrophils # 11.6 H Seg Neutrophils # Man Lymphocytes # (Manual) Monocytes # (Manual) Eosinophils # (Manual) Nucleated RBC % Basophils # (Manual) PT INR APTT Heparin Anti-Xa Level ABG pH POC ABG pO2 ABG pO2 ABG HCO3 ABG O2 Saturation ABG Base Excess POC ABG pCO2 ABG Hemoglobin ABG Oxyhemoglobin ABG Chloride ABG Glucose Oxyhemoglobin Sodium 148 H Potassium 3.5 L Chloride Carbon Dioxide 32 H BUN Creatinine 0.6 L Glucose 114 H POC Glucose 111 H Lactic Acid Calcium Phosphorus Magnesium AST ALT 59 H Lactate Dehydrogenase Total Bilirubin Direct Bilirubin CK-MB (CK-2) C-Reactive Protein NT-Pro-B Natriuret Pep Total Protein Albumin 2.6 L Arterial Blood Glucose Urine WBC (Auto) Urine Creatinine 01/05/20 01/05/20 01/05/20 04:05 04:05 05:19 WBC 11.7 H RBC 3.50 L Hgb 9.3 L Hct 29.9 L MCHC 31 L RDW 16.6 H MCV MCH 27 L Lymph % (Auto) 13.1 L Miller % (Auto) 9.7 H Miller # Eos # Lymph # (Auto) Miller # (Auto) 1.1 H Eos # (Auto) Seg Neutrophils % 74.0 H Seg Neuts % (Manual) Baso # (Auto) Lymphocytes % (Manual) Monocytes % (Manual) Eosinophils % (Manual) Basophils % (Manual) Seg Neutrophils # 8.6 H Seg Neutrophils # Man Lymphocytes # (Manual) Monocytes # (Manual) Eosinophils # (Manual) Nucleated RBC % Basophils # (Manual) PT INR APTT Heparin Anti-Xa Level ABG pH POC ABG pO2 ABG pO2 ABG HCO3 ABG O2 Saturation ABG Base Excess POC ABG pCO2 ABG Hemoglobin ABG Oxyhemoglobin ABG Chloride ABG Glucose Oxyhemoglobin Sodium 151 H Potassium Chloride Carbon Dioxide 34 H BUN Creatinine 0.7 L Glucose POC Glucose 112 H Lactic Acid Calcium Phosphorus Magnesium AST ALT 59 H Lactate Dehydrogenase Total Bilirubin Direct Bilirubin CK-MB (CK-2) C-Reactive Protein NT-Pro-B Natriuret Pep Total Protein 5.8 L Albumin 2.6 L Arterial Blood Glucose Urine WBC (Auto) Urine Creatinine 01/05/20 01/06/20 01/06/20 16:04 00:23 04:44 WBC RBC 3.36 L Hgb 8.9 L Hct 28.7 L MCHC 31 L RDW 16.9 H MCV MCH 26 L Lymph % (Auto) Miller % (Auto) 9.4 H Miller # Eos # Lymph # (Auto) Miller # (Auto) Eos # (Auto) Seg Neutrophils % Seg Neuts % (Manual) Baso # (Auto) Lymphocytes % (Manual) Monocytes % (Manual) Eosinophils % (Manual) Basophils % (Manual) Seg Neutrophils # Seg Neutrophils # Man Lymphocytes # (Manual) Monocytes # (Manual) Eosinophils # (Manual) Nucleated RBC % Basophils # (Manual) PT INR APTT Heparin Anti-Xa Level ABG pH POC ABG pO2 ABG pO2 ABG HCO3 ABG O2 Saturation ABG Base Excess POC ABG pCO2 ABG Hemoglobin ABG Oxyhemoglobin ABG Chloride ABG Glucose Oxyhemoglobin Sodium 151 H Potassium 3.2 L Chloride Carbon Dioxide 34 H BUN Creatinine 0.6 L Glucose POC Glucose 107 H Lactic Acid Calcium Phosphorus Magnesium AST ALT Lactate Dehydrogenase Total Bilirubin Direct Bilirubin CK-MB (CK-2) C-Reactive Protein NT-Pro-B Natriuret Pep Total Protein Albumin Arterial Blood Glucose Urine WBC (Auto) Urine Creatinine 01/06/20 01/06/20 01/06/20 04:44 05:33 12:04 WBC RBC Hgb Hct MCHC RDW MCV MCH Lymph % (Auto) Miller % (Auto) Miller # Eos # Lymph # (Auto) Miller # (Auto) Eos # (Auto) Seg Neutrophils % Seg Neuts % (Manual) Baso # (Auto) Lymphocytes % (Manual) Monocytes % (Manual) Eosinophils % (Manual) Basophils % (Manual) Seg Neutrophils # Seg Neutrophils # Man Lymphocytes # (Manual) Monocytes # (Manual) Eosinophils # (Manual) Nucleated RBC % Basophils # (Manual) PT INR APTT Heparin Anti-Xa Level ABG pH POC ABG pO2 ABG pO2 ABG HCO3 ABG O2 Saturation ABG Base Excess POC ABG pCO2 ABG Hemoglobin ABG Oxyhemoglobin ABG Chloride ABG Glucose Oxyhemoglobin Sodium 151 H Potassium 3.4 L Chloride Carbon Dioxide 33 H BUN Creatinine 0.6 L Glucose 118 H POC Glucose 118 H 123 H Lactic Acid Calcium Phosphorus Magnesium AST ALT Lactate Dehydrogenase Total Bilirubin Direct Bilirubin CK-MB (CK-2) C-Reactive Protein NT-Pro-B Natriuret Pep Total Protein 6.2 L Albumin 2.6 L Arterial Blood Glucose Urine WBC (Auto) Urine Creatinine 01/06/20 01/07/20 01/07/20 17:54 00:06 04:10 WBC RBC 3.42 L Hgb 8.9 L Hct 29.0 L MCHC 31 L RDW 17.1 H MCV MCH 26 L Lymph % (Auto) Miller % (Auto) 8.4 H Miller # Eos # Lymph # (Auto) Miller # (Auto) Eos # (Auto) Seg Neutrophils % Seg Neuts % (Manual) Baso # (Auto) Lymphocytes % (Manual) Monocytes % (Manual) Eosinophils % (Manual) Basophils % (Manual) Seg Neutrophils # Seg Neutrophils # Man Lymphocytes # (Manual) Monocytes # (Manual) Eosinophils # (Manual) Nucleated RBC % Basophils # (Manual) PT INR APTT Heparin Anti-Xa Level ABG pH POC ABG pO2 ABG pO2 ABG HCO3 ABG O2 Saturation ABG Base Excess POC ABG pCO2 ABG Hemoglobin ABG Oxyhemoglobin ABG Chloride ABG Glucose Oxyhemoglobin Sodium Potassium Chloride Carbon Dioxide BUN Creatinine Glucose POC Glucose 112 H 126 H Lactic Acid Calcium Phosphorus Magnesium AST ALT Lactate Dehydrogenase Total Bilirubin Direct Bilirubin CK-MB (CK-2) C-Reactive Protein NT-Pro-B Natriuret Pep Total Protein Albumin Arterial Blood Glucose Urine WBC (Auto) Urine Creatinine 01/07/20 01/07/20 01/07/20 04:10 05:59 12:27 WBC RBC Hgb Hct MCHC RDW MCV MCH Lymph % (Auto) Miller % (Auto) Miller # Eos # Lymph # (Auto) Miller # (Auto) Eos # (Auto) Seg Neutrophils % Seg Neuts % (Manual) Baso # (Auto) Lymphocytes % (Manual) Monocytes % (Manual) Eosinophils % (Manual) Basophils % (Manual) Seg Neutrophils # Seg Neutrophils # Man Lymphocytes # (Manual) Monocytes # (Manual) Eosinophils # (Manual) Nucleated RBC % Basophils # (Manual) PT INR APTT Heparin Anti-Xa Level ABG pH POC ABG pO2 ABG pO2 ABG HCO3 ABG O2 Saturation ABG Base Excess POC ABG pCO2 ABG Hemoglobin ABG Oxyhemoglobin ABG Chloride ABG Glucose Oxyhemoglobin Sodium 153 H Potassium 3.5 L Chloride Carbon Dioxide 34 H BUN Creatinine 0.6 L Glucose 121 H POC Glucose 121 H 126 H Lactic Acid Calcium Phosphorus Magnesium AST ALT Lactate Dehydrogenase Total Bilirubin Direct Bilirubin CK-MB (CK-2) C-Reactive Protein NT-Pro-B Natriuret Pep Total Protein 5.9 L Albumin 2.4 L Arterial Blood Glucose Urine WBC (Auto) Urine Creatinine 01/07/20 01/08/20 01/08/20 18:12 00:03 05:41 WBC RBC Hgb Hct MCHC RDW MCV MCH Lymph % (Auto) Miller % (Auto) Miller # Eos # Lymph # (Auto) Miller # (Auto) Eos # (Auto) Seg Neutrophils % Seg Neuts % (Manual) Baso # (Auto) Lymphocytes % (Manual) Monocytes % (Manual) Eosinophils % (Manual) Basophils % (Manual) Seg Neutrophils # Seg Neutrophils # Man Lymphocytes # (Manual) Monocytes # (Manual) Eosinophils # (Manual) Nucleated RBC % Basophils # (Manual) PT INR APTT Heparin Anti-Xa Level ABG pH POC ABG pO2 ABG pO2 ABG HCO3 ABG O2 Saturation ABG Base Excess POC ABG pCO2 ABG Hemoglobin ABG Oxyhemoglobin ABG Chloride ABG Glucose Oxyhemoglobin Sodium Potassium Chloride Carbon Dioxide BUN Creatinine Glucose POC Glucose 124 H 130 H 138 H Lactic Acid Calcium Phosphorus Magnesium AST ALT Lactate Dehydrogenase Total Bilirubin Direct Bilirubin CK-MB (CK-2) C-Reactive Protein NT-Pro-B Natriuret Pep Total Protein Albumin Arterial Blood Glucose Urine WBC (Auto) Urine Creatinine 01/08/20 01/08/20 01/08/20 09:28 11:42 18:21 WBC RBC Hgb Hct MCHC RDW MCV MCH Lymph % (Auto) Miller % (Auto) Miller # Eos # Lymph # (Auto) Miller # (Auto) Eos # (Auto) Seg Neutrophils % Seg Neuts % (Manual) Baso # (Auto) Lymphocytes % (Manual) Monocytes % (Manual) Eosinophils % (Manual) Basophils % (Manual) Seg Neutrophils # Seg Neutrophils # Man Lymphocytes # (Manual) Monocytes # (Manual) Eosinophils # (Manual) Nucleated RBC % Basophils # (Manual) PT INR APTT Heparin Anti-Xa Level ABG pH POC ABG pO2 ABG pO2 ABG HCO3 ABG O2 Saturation ABG Base Excess POC ABG pCO2 ABG Hemoglobin ABG Oxyhemoglobin ABG Chloride ABG Glucose Oxyhemoglobin Sodium Potassium Chloride Carbon Dioxide BUN Creatinine Glucose POC Glucose 181 H 150 H 129 H Lactic Acid Calcium Phosphorus Magnesium AST ALT Lactate Dehydrogenase Total Bilirubin Direct Bilirubin CK-MB (CK-2) C-Reactive Protein NT-Pro-B Natriuret Pep Total Protein Albumin Arterial Blood Glucose Urine WBC (Auto) Urine Creatinine 01/08/20 01/08/20 01/09/20 19:25 23:55 04:11 WBC RBC 3.43 L Hgb 8.9 L Hct 28.7 L MCHC 31 L RDW 17.6 H MCV MCH 26 L Lymph % (Auto) Miller % (Auto) 8.6 H Miller # Eos # Lymph # (Auto) Miller # (Auto) Eos # (Auto) Seg Neutrophils % Seg Neuts % (Manual) Baso # (Auto) Lymphocytes % (Manual) Monocytes % (Manual) Eosinophils % (Manual) Basophils % (Manual) Seg Neutrophils # Seg Neutrophils # Man Lymphocytes # (Manual) Monocytes # (Manual) Eosinophils # (Manual) Nucleated RBC % Basophils # (Manual) PT INR APTT Heparin Anti-Xa Level ABG pH POC ABG pO2 ABG pO2 ABG HCO3 ABG O2 Saturation ABG Base Excess POC ABG pCO2 ABG Hemoglobin ABG Oxyhemoglobin ABG Chloride ABG Glucose Oxyhemoglobin Sodium Potassium Chloride Carbon Dioxide BUN Creatinine 0.7 L Glucose 117 H POC Glucose 132 H Lactic Acid Calcium Phosphorus Magnesium AST ALT Lactate Dehydrogenase Total Bilirubin Direct Bilirubin CK-MB (CK-2) C-Reactive Protein NT-Pro-B Natriuret Pep Total Protein Albumin Arterial Blood Glucose Urine WBC (Auto) Urine Creatinine 01/09/20 01/09/20 01/09/20 04:11 05:38 22:58 WBC RBC Hgb Hct MCHC RDW MCV MCH Lymph % (Auto) Miller % (Auto) Miller # Eos # Lymph # (Auto) Miller # (Auto) Eos # (Auto) Seg Neutrophils % Seg Neuts % (Manual) Baso # (Auto) Lymphocytes % (Manual) Monocytes % (Manual) Eosinophils % (Manual) Basophils % (Manual) Seg Neutrophils # Seg Neutrophils # Man Lymphocytes # (Manual) Monocytes # (Manual) Eosinophils # (Manual) Nucleated RBC % Basophils # (Manual) PT INR APTT Heparin Anti-Xa Level ABG pH POC ABG pO2 ABG pO2 ABG HCO3 ABG O2 Saturation ABG Base Excess POC ABG pCO2 ABG Hemoglobin ABG Oxyhemoglobin ABG Chloride ABG Glucose Oxyhemoglobin Sodium 147 H Potassium 3.3 L D Chloride Carbon Dioxide 32 H BUN Creatinine 0.6 L Glucose 106 H POC Glucose 107 H 113 H Lactic Acid Calcium Phosphorus Magnesium AST ALT Lactate Dehydrogenase Total Bilirubin Direct Bilirubin CK-MB (CK-2) C-Reactive Protein NT-Pro-B Natriuret Pep Total Protein Albumin Arterial Blood Glucose Urine WBC (Auto) Urine Creatinine 01/10/20 01/10/20 01/10/20 04:05 11:36 17:54 WBC RBC Hgb Hct MCHC RDW MCV MCH Lymph % (Auto) Miller % (Auto) Miller # Eos # Lymph # (Auto) Miller # (Auto) Eos # (Auto) Seg Neutrophils % Seg Neuts % (Manual) Baso # (Auto) Lymphocytes % (Manual) Monocytes % (Manual) Eosinophils % (Manual) Basophils % (Manual) Seg Neutrophils # Seg Neutrophils # Man Lymphocytes # (Manual) Monocytes # (Manual) Eosinophils # (Manual) Nucleated RBC % Basophils # (Manual) PT INR APTT Heparin Anti-Xa Level ABG pH POC ABG pO2 ABG pO2 ABG HCO3 ABG O2 Saturation ABG Base Excess POC ABG pCO2 ABG Hemoglobin ABG Oxyhemoglobin ABG Chloride ABG Glucose Oxyhemoglobin Sodium Potassium Chloride Carbon Dioxide BUN Creatinine 0.7 L Glucose 110 H POC Glucose 129 H 117 H Lactic Acid Calcium Phosphorus Magnesium AST ALT Lactate Dehydrogenase Total Bilirubin Direct Bilirubin CK-MB (CK-2) C-Reactive Protein NT-Pro-B Natriuret Pep Total Protein Albumin Arterial Blood Glucose Urine WBC (Auto) Urine Creatinine 01/10/20 01/11/20 01/11/20 23:52 03:19 12:09 WBC RBC Hgb Hct MCHC RDW MCV MCH Lymph % (Auto) Miller % (Auto) Miller # Eos # Lymph # (Auto) Miller # (Auto) Eos # (Auto) Seg Neutrophils % Seg Neuts % (Manual) Baso # (Auto) Lymphocytes % (Manual) Monocytes % (Manual) Eosinophils % (Manual) Basophils % (Manual) Seg Neutrophils # Seg Neutrophils # Man Lymphocytes # (Manual) Monocytes # (Manual) Eosinophils # (Manual) Nucleated RBC % Basophils # (Manual) PT INR APTT Heparin Anti-Xa Level ABG pH POC ABG pO2 ABG pO2 ABG HCO3 ABG O2 Saturation ABG Base Excess POC ABG pCO2 ABG Hemoglobin ABG Oxyhemoglobin ABG Chloride ABG Glucose Oxyhemoglobin Sodium Potassium Chloride Carbon Dioxide BUN Creatinine Glucose POC Glucose 117 H 136 H 115 H Lactic Acid Calcium Phosphorus Magnesium AST ALT Lactate Dehydrogenase Total Bilirubin Direct Bilirubin CK-MB (CK-2) C-Reactive Protein NT-Pro-B Natriuret Pep Total Protein Albumin Arterial Blood Glucose Urine WBC (Auto) Urine Creatinine 01/11/20 01/11/20 01/12/20 18:27 23:28 00:23 WBC RBC Hgb 9.8 L Hct 31.6 L MCHC 31 L RDW 17.8 H MCV 83 L MCH 26 L Lymph % (Auto) Miller % (Auto) 8.0 H Miller # Eos # Lymph # (Auto) Miller # (Auto) Eos # (Auto) Seg Neutrophils % Seg Neuts % (Manual) Baso # (Auto) Lymphocytes % (Manual) Monocytes % (Manual) Eosinophils % (Manual) Basophils % (Manual) Seg Neutrophils # Seg Neutrophils # Man Lymphocytes # (Manual) Monocytes # (Manual) Eosinophils # (Manual) Nucleated RBC % Basophils # (Manual) PT INR APTT Heparin Anti-Xa Level ABG pH POC ABG pO2 ABG pO2 ABG HCO3 ABG O2 Saturation ABG Base Excess POC ABG pCO2 ABG Hemoglobin ABG Oxyhemoglobin ABG Chloride ABG Glucose Oxyhemoglobin Sodium Potassium Chloride Carbon Dioxide BUN Creatinine Glucose POC Glucose 118 H 122 H Lactic Acid Calcium Phosphorus Magnesium AST ALT Lactate Dehydrogenase Total Bilirubin Direct Bilirubin CK-MB (CK-2) C-Reactive Protein NT-Pro-B Natriuret Pep Total Protein Albumin Arterial Blood Glucose Urine WBC (Auto) Urine Creatinine 01/12/20 01/12/20 01/12/20 00:23 04:18 04:18 WBC RBC Hgb 9.6 L Hct 30.9 L MCHC 31 L RDW 17.3 H MCV 81 L MCH 25 L Lymph % (Auto) Miller % (Auto) Miller # Eos # Lymph # (Auto) Miller # (Auto) Eos # (Auto) Seg Neutrophils % Seg Neuts % (Manual) Baso # (Auto) Lymphocytes % (Manual) Monocytes % (Manual) Eosinophils % (Manual) Basophils % (Manual) Seg Neutrophils # Seg Neutrophils # Man Lymphocytes # (Manual) Monocytes # (Manual) Eosinophils # (Manual) Nucleated RBC % Basophils # (Manual) PT INR APTT Heparin Anti-Xa Level ABG pH POC ABG pO2 ABG pO2 ABG HCO3 ABG O2 Saturation ABG Base Excess POC ABG pCO2 ABG Hemoglobin ABG Oxyhemoglobin ABG Chloride ABG Glucose Oxyhemoglobin Sodium Potassium Chloride Carbon Dioxide BUN Creatinine 0.7 L 0.7 L Glucose 111 H 108 H POC Glucose Lactic Acid Calcium Phosphorus Magnesium AST ALT Lactate Dehydrogenase Total Bilirubin Direct Bilirubin CK-MB (CK-2) C-Reactive Protein NT-Pro-B Natriuret Pep Total Protein Albumin 2.6 L Arterial Blood Glucose Urine WBC (Auto) Urine Creatinine 01/12/20 01/12/20 01/12/20 06:03 12:27 13:58 WBC RBC Hgb Hct MCHC RDW MCV MCH Lymph % (Auto) Miller % (Auto) Miller # Eos # Lymph # (Auto) Miller # (Auto) Eos # (Auto) Seg Neutrophils % Seg Neuts % (Manual) Baso # (Auto) Lymphocytes % (Manual) Monocytes % (Manual) Eosinophils % (Manual) Basophils % (Manual) Seg Neutrophils # Seg Neutrophils # Man Lymphocytes # (Manual) Monocytes # (Manual) Eosinophils # (Manual) Nucleated RBC % Basophils # (Manual) PT INR APTT Heparin Anti-Xa Level ABG pH 7.453 H POC ABG pO2 76.6 L ABG pO2 ABG HCO3 ABG O2 Saturation ABG Base Excess POC ABG pCO2 ABG Hemoglobin 10.3 L ABG Oxyhemoglobin ABG Chloride ABG Glucose 99 H Oxyhemoglobin Sodium Potassium Chloride Carbon Dioxide BUN Creatinine Glucose POC Glucose 128 H 121 H Lactic Acid Calcium Phosphorus Magnesium AST ALT Lactate Dehydrogenase Total Bilirubin Direct Bilirubin CK-MB (CK-2) C-Reactive Protein NT-Pro-B Natriuret Pep Total Protein Albumin Arterial Blood Glucose 99 H Urine WBC (Auto) Urine Creatinine 01/12/20 01/13/20 01/13/20 18:24 12:01 17:46 WBC RBC Hgb Hct MCHC RDW MCV MCH Lymph % (Auto) Miller % (Auto) Miller # Eos # Lymph # (Auto) Miller # (Auto) Eos # (Auto) Seg Neutrophils % Seg Neuts % (Manual) Baso # (Auto) Lymphocytes % (Manual) Monocytes % (Manual) Eosinophils % (Manual) Basophils % (Manual) Seg Neutrophils # Seg Neutrophils # Man Lymphocytes # (Manual) Monocytes # (Manual) Eosinophils # (Manual) Nucleated RBC % Basophils # (Manual) PT INR APTT Heparin Anti-Xa Level ABG pH POC ABG pO2 ABG pO2 ABG HCO3 ABG O2 Saturation ABG Base Excess POC ABG pCO2 ABG Hemoglobin ABG Oxyhemoglobin ABG Chloride ABG Glucose Oxyhemoglobin Sodium Potassium Chloride Carbon Dioxide BUN Creatinine Glucose POC Glucose 119 H 107 H 124 H Lactic Acid Calcium Phosphorus Magnesium AST ALT Lactate Dehydrogenase Total Bilirubin Direct Bilirubin CK-MB (CK-2) C-Reactive Protein NT-Pro-B Natriuret Pep Total Protein Albumin Arterial Blood Glucose Urine WBC (Auto) Urine Creatinine 01/13/20 01/14/20 01/14/20 20:40 00:10 05:33 WBC RBC Hgb Hct MCHC RDW MCV MCH Lymph % (Auto) Miller % (Auto) Miller # Eos # Lymph # (Auto) Miller # (Auto) Eos # (Auto) Seg Neutrophils % Seg Neuts % (Manual) Baso # (Auto) Lymphocytes % (Manual) Monocytes % (Manual) Eosinophils % (Manual) Basophils % (Manual) Seg Neutrophils # Seg Neutrophils # Man Lymphocytes # (Manual) Monocytes # (Manual) Eosinophils # (Manual) Nucleated RBC % Basophils # (Manual) PT INR APTT Heparin Anti-Xa Level ABG pH POC ABG pO2 ABG pO2 65.3 L ABG HCO3 31.8 H ABG O2 Saturation 93.5 L ABG Base Excess 6.7 H POC ABG pCO2 ABG Hemoglobin 13.3 L ABG Oxyhemoglobin ABG Chloride ABG Glucose Oxyhemoglobin 90.9 L Sodium Potassium Chloride Carbon Dioxide BUN Creatinine Glucose POC Glucose 111 H 111 H Lactic Acid Calcium Phosphorus Magnesium AST ALT Lactate Dehydrogenase Total Bilirubin Direct Bilirubin CK-MB (CK-2) C-Reactive Protein NT-Pro-B Natriuret Pep Total Protein Albumin Arterial Blood Glucose Urine WBC (Auto) Urine Creatinine 01/14/20 01/14/20 01/14/20 12:10 16:14 16:14 WBC RBC Hgb 10.6 L Hct 34.2 L MCHC 31 L RDW 18.3 H MCV 83 L MCH 26 L Lymph % (Auto) Miller % (Auto) 7.4 H Miller # Eos # Lymph # (Auto) Miller # (Auto) Eos # (Auto) Seg Neutrophils % 71.9 H Seg Neuts % (Manual) Baso # (Auto) Lymphocytes % (Manual) Monocytes % (Manual) Eosinophils % (Manual) Basophils % (Manual) Seg Neutrophils # Seg Neutrophils # Man Lymphocytes # (Manual) Monocytes # (Manual) Eosinophils # (Manual) Nucleated RBC % Basophils # (Manual) PT INR APTT Heparin Anti-Xa Level ABG pH POC ABG pO2 ABG pO2 ABG HCO3 ABG O2 Saturation ABG Base Excess POC ABG pCO2 ABG Hemoglobin ABG Oxyhemoglobin ABG Chloride ABG Glucose Oxyhemoglobin Sodium Potassium Chloride Carbon Dioxide 31 H BUN Creatinine 0.6 L Glucose 131 H POC Glucose 139 H Lactic Acid Calcium Phosphorus Magnesium AST ALT Lactate Dehydrogenase Total Bilirubin Direct Bilirubin CK-MB (CK-2) C-Reactive Protein NT-Pro-B Natriuret Pep Total Protein Albumin Arterial Blood Glucose Urine WBC (Auto) Urine Creatinine 01/14/20 01/15/20 01/15/20 18:05 00:52 05:35 WBC RBC Hgb Hct MCHC RDW MCV MCH Lymph % (Auto) Miller % (Auto) Miller # Eos # Lymph # (Auto) Miller # (Auto) Eos # (Auto) Seg Neutrophils % Seg Neuts % (Manual) Baso # (Auto) Lymphocytes % (Manual) Monocytes % (Manual) Eosinophils % (Manual) Basophils % (Manual) Seg Neutrophils # Seg Neutrophils # Man Lymphocytes # (Manual) Monocytes # (Manual) Eosinophils # (Manual) Nucleated RBC % Basophils # (Manual) PT INR APTT Heparin Anti-Xa Level ABG pH POC ABG pO2 ABG pO2 ABG HCO3 ABG O2 Saturation ABG Base Excess POC ABG pCO2 ABG Hemoglobin ABG Oxyhemoglobin ABG Chloride ABG Glucose Oxyhemoglobin Sodium Potassium Chloride Carbon Dioxide BUN Creatinine Glucose POC Glucose 147 H 140 H 159 H Lactic Acid Calcium Phosphorus Magnesium AST ALT Lactate Dehydrogenase Total Bilirubin Direct Bilirubin CK-MB (CK-2) C-Reactive Protein NT-Pro-B Natriuret Pep Total Protein Albumin Arterial Blood Glucose Urine WBC (Auto) Urine Creatinine 01/15/20 01/15/20 01/16/20 12:52 17:43 00:32 WBC RBC Hgb Hct MCHC RDW MCV MCH Lymph % (Auto) Miller % (Auto) Miller # Eos # Lymph # (Auto) Miller # (Auto) Eos # (Auto) Seg Neutrophils % Seg Neuts % (Manual) Baso # (Auto) Lymphocytes % (Manual) Monocytes % (Manual) Eosinophils % (Manual) Basophils % (Manual) Seg Neutrophils # Seg Neutrophils # Man Lymphocytes # (Manual) Monocytes # (Manual) Eosinophils # (Manual) Nucleated RBC % Basophils # (Manual) PT INR APTT Heparin Anti-Xa Level ABG pH POC ABG pO2 ABG pO2 ABG HCO3 ABG O2 Saturation ABG Base Excess POC ABG pCO2 ABG Hemoglobin ABG Oxyhemoglobin ABG Chloride ABG Glucose Oxyhemoglobin Sodium Potassium Chloride Carbon Dioxide BUN Creatinine Glucose POC Glucose 164 H 167 H 153 H Lactic Acid Calcium Phosphorus Magnesium AST ALT Lactate Dehydrogenase Total Bilirubin Direct Bilirubin CK-MB (CK-2) C-Reactive Protein NT-Pro-B Natriuret Pep Total Protein Albumin Arterial Blood Glucose Urine WBC (Auto) Urine Creatinine 01/16/20 01/16/20 01/17/20 05:46 11:48 06:38 WBC RBC Hgb Hct MCHC RDW MCV MCH Lymph % (Auto) Miller % (Auto) Miller # Eos # Lymph # (Auto) Miller # (Auto) Eos # (Auto) Seg Neutrophils % Seg Neuts % (Manual) Baso # (Auto) Lymphocytes % (Manual) Monocytes % (Manual) Eosinophils % (Manual) Basophils % (Manual) Seg Neutrophils # Seg Neutrophils # Man Lymphocytes # (Manual) Monocytes # (Manual) Eosinophils # (Manual) Nucleated RBC % Basophils # (Manual) PT INR APTT Heparin Anti-Xa Level ABG pH POC ABG pO2 ABG pO2 ABG HCO3 ABG O2 Saturation ABG Base Excess POC ABG pCO2 ABG Hemoglobin ABG Oxyhemoglobin ABG Chloride ABG Glucose Oxyhemoglobin Sodium Potassium Chloride Carbon Dioxide BUN Creatinine Glucose POC Glucose 163 H 155 H 116 H Lactic Acid Calcium Phosphorus Magnesium AST ALT Lactate Dehydrogenase Total Bilirubin Direct Bilirubin CK-MB (CK-2) C-Reactive Protein NT-Pro-B Natriuret Pep Total Protein Albumin Arterial Blood Glucose Urine WBC (Auto) Urine Creatinine 01/17/20 01/17/20 01/18/20 11:36 17:43 00:12 WBC RBC Hgb Hct MCHC RDW MCV MCH Lymph % (Auto) Miller % (Auto) Miller # Eos # Lymph # (Auto) Miller # (Auto) Eos # (Auto) Seg Neutrophils % Seg Neuts % (Manual) Baso # (Auto) Lymphocytes % (Manual) Monocytes % (Manual) Eosinophils % (Manual) Basophils % (Manual) Seg Neutrophils # Seg Neutrophils # Man Lymphocytes # (Manual) Monocytes # (Manual) Eosinophils # (Manual) Nucleated RBC % Basophils # (Manual) PT INR APTT Heparin Anti-Xa Level ABG pH POC ABG pO2 ABG pO2 ABG HCO3 ABG O2 Saturation ABG Base Excess POC ABG pCO2 ABG Hemoglobin ABG Oxyhemoglobin ABG Chloride ABG Glucose Oxyhemoglobin Sodium Potassium Chloride Carbon Dioxide BUN Creatinine Glucose POC Glucose 110 H 134 H 108 H Lactic Acid Calcium Phosphorus Magnesium AST ALT Lactate Dehydrogenase Total Bilirubin Direct Bilirubin CK-MB (CK-2) C-Reactive Protein NT-Pro-B Natriuret Pep Total Protein Albumin Arterial Blood Glucose Urine WBC (Auto) Urine Creatinine 01/18/20 01/18/20 01/18/20 05:37 06:46 06:46 WBC RBC Hgb 10.1 L Hct 32.2 L MCHC 31 L RDW 18.1 H MCV 81 L MCH 25 L Lymph % (Auto) Miller % (Auto) Miller # Eos # Lymph # (Auto) Miller # (Auto) Eos # (Auto) Seg Neutrophils % 71.9 H Seg Neuts % (Manual) Baso # (Auto) Lymphocytes % (Manual) Monocytes % (Manual) Eosinophils % (Manual) Basophils % (Manual) Seg Neutrophils # Seg Neutrophils # Man Lymphocytes # (Manual) Monocytes # (Manual) Eosinophils # (Manual) Nucleated RBC % Basophils # (Manual) PT INR APTT Heparin Anti-Xa Level ABG pH POC ABG pO2 ABG pO2 ABG HCO3 ABG O2 Saturation ABG Base Excess POC ABG pCO2 ABG Hemoglobin ABG Oxyhemoglobin ABG Chloride ABG Glucose Oxyhemoglobin Sodium Potassium Chloride Carbon Dioxide BUN Creatinine 0.7 L Glucose 155 H POC Glucose 168 H Lactic Acid Calcium Phosphorus Magnesium AST ALT Lactate Dehydrogenase Total Bilirubin Direct Bilirubin CK-MB (CK-2) C-Reactive Protein NT-Pro-B Natriuret Pep Total Protein Albumin Arterial Blood Glucose Urine WBC (Auto) Urine Creatinine 01/18/20 01/18/20 01/18/20 12:05 17:14 23:28 WBC RBC Hgb Hct MCHC RDW MCV MCH Lymph % (Auto) Miller % (Auto) Miller # Eos # Lymph # (Auto) Miller # (Auto) Eos # (Auto) Seg Neutrophils % Seg Neuts % (Manual) Baso # (Auto) Lymphocytes % (Manual) Monocytes % (Manual) Eosinophils % (Manual) Basophils % (Manual) Seg Neutrophils # Seg Neutrophils # Man Lymphocytes # (Manual) Monocytes # (Manual) Eosinophils # (Manual) Nucleated RBC % Basophils # (Manual) PT INR APTT Heparin Anti-Xa Level ABG pH POC ABG pO2 ABG pO2 ABG HCO3 ABG O2 Saturation ABG Base Excess POC ABG pCO2 ABG Hemoglobin ABG Oxyhemoglobin ABG Chloride ABG Glucose Oxyhemoglobin Sodium Potassium Chloride Carbon Dioxide BUN Creatinine Glucose POC Glucose 128 H 126 H 128 H Lactic Acid Calcium Phosphorus Magnesium AST ALT Lactate Dehydrogenase Total Bilirubin Direct Bilirubin CK-MB (CK-2) C-Reactive Protein NT-Pro-B Natriuret Pep Total Protein Albumin Arterial Blood Glucose Urine WBC (Auto) Urine Creatinine 01/19/20 01/19/20 01/19/20 05:39 12:33 17:36 WBC RBC Hgb Hct MCHC RDW MCV MCH Lymph % (Auto) Miller % (Auto) Miller # Eos # Lymph # (Auto) Miller # (Auto) Eos # (Auto) Seg Neutrophils % Seg Neuts % (Manual) Baso # (Auto) Lymphocytes % (Manual) Monocytes % (Manual) Eosinophils % (Manual) Basophils % (Manual) Seg Neutrophils # Seg Neutrophils # Man Lymphocytes # (Manual) Monocytes # (Manual) Eosinophils # (Manual) Nucleated RBC % Basophils # (Manual) PT INR APTT Heparin Anti-Xa Level ABG pH POC ABG pO2 ABG pO2 ABG HCO3 ABG O2 Saturation ABG Base Excess POC ABG pCO2 ABG Hemoglobin ABG Oxyhemoglobin ABG Chloride ABG Glucose Oxyhemoglobin Sodium Potassium Chloride Carbon Dioxide BUN Creatinine Glucose POC Glucose 164 H 171 H 152 H Lactic Acid Calcium Phosphorus Magnesium AST ALT Lactate Dehydrogenase Total Bilirubin Direct Bilirubin CK-MB (CK-2) C-Reactive Protein NT-Pro-B Natriuret Pep Total Protein Albumin Arterial Blood Glucose Urine WBC (Auto) Urine Creatinine 01/20/20 01/20/20 01/20/20 00:12 05:20 05:35 WBC RBC Hgb 9.2 L Hct 29.4 L MCHC 31 L RDW 17.9 H MCV 81 L MCH 25 L Lymph % (Auto) Miller % (Auto) Miller # Eos # Lymph # (Auto) Miller # (Auto) Eos # (Auto) Seg Neutrophils % Seg Neuts % (Manual) Baso # (Auto) Lymphocytes % (Manual) Monocytes % (Manual) Eosinophils % (Manual) Basophils % (Manual) Seg Neutrophils # Seg Neutrophils # Man Lymphocytes # (Manual) Monocytes # (Manual) Eosinophils # (Manual) Nucleated RBC % Basophils # (Manual) PT INR APTT Heparin Anti-Xa Level ABG pH POC ABG pO2 ABG pO2 ABG HCO3 ABG O2 Saturation ABG Base Excess POC ABG pCO2 ABG Hemoglobin ABG Oxyhemoglobin ABG Chloride ABG Glucose Oxyhemoglobin Sodium Potassium Chloride Carbon Dioxide BUN Creatinine Glucose POC Glucose 120 H 136 H Lactic Acid Calcium Phosphorus Magnesium AST ALT Lactate Dehydrogenase Total Bilirubin Direct Bilirubin CK-MB (CK-2) C-Reactive Protein NT-Pro-B Natriuret Pep Total Protein Albumin Arterial Blood Glucose Urine WBC (Auto) Urine Creatinine 01/20/20 01/20/20 01/20/20 05:40 11:58 14:55 WBC RBC Hgb 9.0 L Hct 28.3 L MCHC RDW MCV MCH Lymph % (Auto) Miller % (Auto) Miller # Eos # Lymph # (Auto) Miller # (Auto) Eos # (Auto) Seg Neutrophils % Seg Neuts % (Manual) Baso # (Auto) Lymphocytes % (Manual) Monocytes % (Manual) Eosinophils % (Manual) Basophils % (Manual) Seg Neutrophils # Seg Neutrophils # Man Lymphocytes # (Manual) Monocytes # (Manual) Eosinophils # (Manual) Nucleated RBC % Basophils # (Manual) PT INR APTT Heparin Anti-Xa Level ABG pH POC ABG pO2 ABG pO2 ABG HCO3 ABG O2 Saturation ABG Base Excess POC ABG pCO2 ABG Hemoglobin ABG Oxyhemoglobin ABG Chloride ABG Glucose Oxyhemoglobin Sodium Potassium Chloride Carbon Dioxide 32 H BUN 22 H Creatinine 0.7 L Glucose 128 H POC Glucose 152 H Lactic Acid Calcium Phosphorus Magnesium AST ALT Lactate Dehydrogenase Total Bilirubin Direct Bilirubin CK-MB (CK-2) C-Reactive Protein NT-Pro-B Natriuret Pep Total Protein Albumin Arterial Blood Glucose Urine WBC (Auto) Urine Creatinine 01/20/20 01/20/20 01/20/20 14:55 18:14 21:35 WBC RBC Hgb Hct MCHC RDW MCV MCH Lymph % (Auto) Miller % (Auto) Miller # Eos # Lymph # (Auto) Miller # (Auto) Eos # (Auto) Seg Neutrophils % Seg Neuts % (Manual) Baso # (Auto) Lymphocytes % (Manual) Monocytes % (Manual) Eosinophils % (Manual) Basophils % (Manual) Seg Neutrophils # Seg Neutrophils # Man Lymphocytes # (Manual) Monocytes # (Manual) Eosinophils # (Manual) Nucleated RBC % Basophils # (Manual) PT 20.4 H INR 1.72 H APTT 40.6 H Heparin Anti-Xa Level > 2.00 H ABG pH POC ABG pO2 ABG pO2 ABG HCO3 ABG O2 Saturation ABG Base Excess POC ABG pCO2 ABG Hemoglobin ABG Oxyhemoglobin ABG Chloride ABG Glucose Oxyhemoglobin Sodium Potassium Chloride Carbon Dioxide BUN Creatinine Glucose POC Glucose 150 H Lactic Acid Calcium Phosphorus Magnesium AST ALT Lactate Dehydrogenase Total Bilirubin Direct Bilirubin CK-MB (CK-2) C-Reactive Protein NT-Pro-B Natriuret Pep Total Protein Albumin Arterial Blood Glucose Urine WBC (Auto) Urine Creatinine 01/21/20 01/21/20 01/21/20 00:30 05:47 05:59 WBC RBC Hgb Hct MCHC RDW MCV MCH Lymph % (Auto) Miller % (Auto) Miller # Eos # Lymph # (Auto) Miller # (Auto) Eos # (Auto) Seg Neutrophils % Seg Neuts % (Manual) Baso # (Auto) Lymphocytes % (Manual) Monocytes % (Manual) Eosinophils % (Manual) Basophils % (Manual) Seg Neutrophils # Seg Neutrophils # Man Lymphocytes # (Manual) Monocytes # (Manual) Eosinophils # (Manual) Nucleated RBC % Basophils # (Manual) PT INR APTT Heparin Anti-Xa Level 1.93 H ABG pH POC ABG pO2 ABG pO2 ABG HCO3 ABG O2 Saturation ABG Base Excess POC ABG pCO2 ABG Hemoglobin ABG Oxyhemoglobin ABG Chloride ABG Glucose Oxyhemoglobin Sodium Potassium Chloride Carbon Dioxide BUN Creatinine Glucose POC Glucose 126 H 148 H Lactic Acid Calcium Phosphorus Magnesium AST ALT Lactate Dehydrogenase Total Bilirubin Direct Bilirubin CK-MB (CK-2) C-Reactive Protein NT-Pro-B Natriuret Pep Total Protein Albumin Arterial Blood Glucose Urine WBC (Auto) Urine Creatinine 01/21/20 01/21/20 01/21/20 12:32 18:20 23:54 WBC RBC Hgb Hct MCHC RDW MCV MCH Lymph % (Auto) Miller % (Auto) Miller # Eos # Lymph # (Auto) Miller # (Auto) Eos # (Auto) Seg Neutrophils % Seg Neuts % (Manual) Baso # (Auto) Lymphocytes % (Manual) Monocytes % (Manual) Eosinophils % (Manual) Basophils % (Manual) Seg Neutrophils # Seg Neutrophils # Man Lymphocytes # (Manual) Monocytes # (Manual) Eosinophils # (Manual) Nucleated RBC % Basophils # (Manual) PT INR APTT Heparin Anti-Xa Level 1.28 H ABG pH POC ABG pO2 ABG pO2 ABG HCO3 ABG O2 Saturation ABG Base Excess POC ABG pCO2 ABG Hemoglobin ABG Oxyhemoglobin ABG Chloride ABG Glucose Oxyhemoglobin Sodium Potassium Chloride Carbon Dioxide BUN Creatinine Glucose POC Glucose 112 H 146 H Lactic Acid Calcium Phosphorus Magnesium AST ALT Lactate Dehydrogenase Total Bilirubin Direct Bilirubin CK-MB (CK-2) C-Reactive Protein NT-Pro-B Natriuret Pep Total Protein Albumin Arterial Blood Glucose Urine WBC (Auto) Urine Creatinine 01/22/20 01/22/20 01/22/20 04:45 04:45 05:48 WBC RBC Hgb 9.3 L Hct 29.0 L MCHC RDW MCV MCH Lymph % (Auto) Miller % (Auto) Miller # Eos # Lymph # (Auto) Miller # (Auto) Eos # (Auto) Seg Neutrophils % Seg Neuts % (Manual) Baso # (Auto) Lymphocytes % (Manual) Monocytes % (Manual) Eosinophils % (Manual) Basophils % (Manual) Seg Neutrophils # Seg Neutrophils # Man Lymphocytes # (Manual) Monocytes # (Manual) Eosinophils # (Manual) Nucleated RBC % Basophils # (Manual) PT INR APTT Heparin Anti-Xa Level 1.34 H ABG pH POC ABG pO2 ABG pO2 ABG HCO3 ABG O2 Saturation ABG Base Excess POC ABG pCO2 ABG Hemoglobin ABG Oxyhemoglobin ABG Chloride ABG Glucose Oxyhemoglobin Sodium Potassium Chloride Carbon Dioxide BUN Creatinine Glucose POC Glucose 142 H Lactic Acid Calcium Phosphorus Magnesium AST ALT Lactate Dehydrogenase Total Bilirubin Direct Bilirubin CK-MB (CK-2) C-Reactive Protein NT-Pro-B Natriuret Pep Total Protein Albumin Arterial Blood Glucose Urine WBC (Auto) Urine Creatinine 01/22/20 01/22/20 01/22/20 08:09 08:22 09:58 WBC RBC Hgb Hct MCHC RDW MCV MCH Lymph % (Auto) Miller % (Auto) Miller # Eos # Lymph # (Auto) Miller # (Auto) Eos # (Auto) Seg Neutrophils % Seg Neuts % (Manual) Baso # (Auto) Lymphocytes % (Manual) Monocytes % (Manual) Eosinophils % (Manual) Basophils % (Manual) Seg Neutrophils # Seg Neutrophils # Man Lymphocytes # (Manual) Monocytes # (Manual) Eosinophils # (Manual) Nucleated RBC % Basophils # (Manual) PT 16.9 H INR 1.34 H APTT Heparin Anti-Xa Level ABG pH POC ABG pO2 ABG pO2 ABG HCO3 ABG O2 Saturation ABG Base Excess POC ABG pCO2 ABG Hemoglobin ABG Oxyhemoglobin ABG Chloride ABG Glucose Oxyhemoglobin Sodium Potassium Chloride 97.8 L Carbon Dioxide BUN 29 H Creatinine Glucose 128 H POC Glucose 131 H Lactic Acid Calcium Phosphorus Magnesium AST ALT Lactate Dehydrogenase Total Bilirubin Direct Bilirubin CK-MB (CK-2) C-Reactive Protein NT-Pro-B Natriuret Pep Total Protein Albumin Arterial Blood Glucose Urine WBC (Auto) Urine Creatinine 01/22/20 01/22/20 01/22/20 12:44 16:13 18:18 WBC RBC Hgb Hct MCHC RDW MCV MCH Lymph % (Auto) Miller % (Auto) Miller # Eos # Lymph # (Auto) Miller # (Auto) Eos # (Auto) Seg Neutrophils % Seg Neuts % (Manual) Baso # (Auto) Lymphocytes % (Manual) Monocytes % (Manual) Eosinophils % (Manual) Basophils % (Manual) Seg Neutrophils # Seg Neutrophils # Man Lymphocytes # (Manual) Monocytes # (Manual) Eosinophils # (Manual) Nucleated RBC % Basophils # (Manual) PT INR APTT Heparin Anti-Xa Level ABG pH POC ABG pO2 ABG pO2 ABG HCO3 ABG O2 Saturation ABG Base Excess POC ABG pCO2 ABG Hemoglobin ABG Oxyhemoglobin ABG Chloride ABG Glucose Oxyhemoglobin Sodium Potassium Chloride Carbon Dioxide BUN Creatinine Glucose POC Glucose 156 H 133 H 155 H Lactic Acid Calcium Phosphorus Magnesium AST ALT Lactate Dehydrogenase Total Bilirubin Direct Bilirubin CK-MB (CK-2) C-Reactive Protein NT-Pro-B Natriuret Pep Total Protein Albumin Arterial Blood Glucose Urine WBC (Auto) Urine Creatinine 01/22/20 01/23/20 01/23/20 23:22 05:37 12:59 WBC RBC Hgb Hct MCHC RDW MCV MCH Lymph % (Auto) Miller % (Auto) Miller # Eos # Lymph # (Auto) Miller # (Auto) Eos # (Auto) Seg Neutrophils % Seg Neuts % (Manual) Baso # (Auto) Lymphocytes % (Manual) Monocytes % (Manual) Eosinophils % (Manual) Basophils % (Manual) Seg Neutrophils # Seg Neutrophils # Man Lymphocytes # (Manual) Monocytes # (Manual) Eosinophils # (Manual) Nucleated RBC % Basophils # (Manual) PT INR APTT Heparin Anti-Xa Level ABG pH POC ABG pO2 ABG pO2 ABG HCO3 ABG O2 Saturation ABG Base Excess POC ABG pCO2 ABG Hemoglobin ABG Oxyhemoglobin ABG Chloride ABG Glucose Oxyhemoglobin Sodium Potassium Chloride Carbon Dioxide BUN Creatinine Glucose POC Glucose 148 H 163 H 175 H Lactic Acid Calcium Phosphorus Magnesium AST ALT Lactate Dehydrogenase Total Bilirubin Direct Bilirubin CK-MB (CK-2) C-Reactive Protein NT-Pro-B Natriuret Pep Total Protein Albumin Arterial Blood Glucose Urine WBC (Auto) Urine Creatinine 01/23/20 01/23/20 01/24/20 17:28 23:56 04:30 WBC RBC 3.46 L Hgb 8.8 L Hct 27.8 L MCHC RDW 18.2 H MCV 81 L MCH 25 L Lymph % (Auto) Miller % (Auto) 7.8 H Miller # Eos # Lymph # (Auto) Miller # (Auto) Eos # (Auto) Seg Neutrophils % Seg Neuts % (Manual) Baso # (Auto) Lymphocytes % (Manual) Monocytes % (Manual) Eosinophils % (Manual) Basophils % (Manual) Seg Neutrophils # Seg Neutrophils # Man Lymphocytes # (Manual) Monocytes # (Manual) Eosinophils # (Manual) Nucleated RBC % Basophils # (Manual) PT INR APTT Heparin Anti-Xa Level ABG pH POC ABG pO2 ABG pO2 ABG HCO3 ABG O2 Saturation ABG Base Excess POC ABG pCO2 ABG Hemoglobin ABG Oxyhemoglobin ABG Chloride ABG Glucose Oxyhemoglobin Sodium Potassium Chloride Carbon Dioxide BUN Creatinine Glucose POC Glucose 165 H 177 H Lactic Acid Calcium Phosphorus Magnesium AST ALT Lactate Dehydrogenase Total Bilirubin Direct Bilirubin CK-MB (CK-2) C-Reactive Protein NT-Pro-B Natriuret Pep Total Protein Albumin Arterial Blood Glucose Urine WBC (Auto) Urine Creatinine 01/24/20 01/24/20 01/24/20 04:30 07:18 12:06 WBC RBC Hgb Hct MCHC RDW MCV MCH Lymph % (Auto) Miller % (Auto) Miller # Eos # Lymph # (Auto) Miller # (Auto) Eos # (Auto) Seg Neutrophils % Seg Neuts % (Manual) Baso # (Auto) Lymphocytes % (Manual) Monocytes % (Manual) Eosinophils % (Manual) Basophils % (Manual) Seg Neutrophils # Seg Neutrophils # Man Lymphocytes # (Manual) Monocytes # (Manual) Eosinophils # (Manual) Nucleated RBC % Basophils # (Manual) PT INR APTT Heparin Anti-Xa Level ABG pH POC ABG pO2 ABG pO2 ABG HCO3 ABG O2 Saturation ABG Base Excess POC ABG pCO2 ABG Hemoglobin ABG Oxyhemoglobin ABG Chloride ABG Glucose Oxyhemoglobin Sodium Potassium Chloride 97.9 L Carbon Dioxide BUN 31 H Creatinine Glucose 146 H POC Glucose 151 H 133 H Lactic Acid Calcium Phosphorus Magnesium AST ALT Lactate Dehydrogenase Total Bilirubin Direct Bilirubin CK-MB (CK-2) C-Reactive Protein NT-Pro-B Natriuret Pep Total Protein Albumin Arterial Blood Glucose Urine WBC (Auto) Urine Creatinine 01/24/20 01/25/20 01/25/20 17:36 00:08 04:25 WBC RBC 3.50 L Hgb 8.7 L Hct 27.9 L MCHC 31 L RDW 18.2 H MCV 80 L MCH 25 L Lymph % (Auto) Miller % (Auto) 8.5 H Miller # Eos # Lymph # (Auto) Miller # (Auto) Eos # (Auto) Seg Neutrophils % Seg Neuts % (Manual) Baso # (Auto) Lymphocytes % (Manual) Monocytes % (Manual) Eosinophils % (Manual) Basophils % (Manual) Seg Neutrophils # Seg Neutrophils # Man Lymphocytes # (Manual) Monocytes # (Manual) Eosinophils # (Manual) Nucleated RBC % Basophils # (Manual) PT INR APTT Heparin Anti-Xa Level ABG pH POC ABG pO2 ABG pO2 ABG HCO3 ABG O2 Saturation ABG Base Excess POC ABG pCO2 ABG Hemoglobin ABG Oxyhemoglobin ABG Chloride ABG Glucose Oxyhemoglobin Sodium Potassium Chloride Carbon Dioxide BUN Creatinine Glucose POC Glucose 133 H 129 H Lactic Acid Calcium Phosphorus Magnesium AST ALT Lactate Dehydrogenase Total Bilirubin Direct Bilirubin CK-MB (CK-2) C-Reactive Protein NT-Pro-B Natriuret Pep Total Protein Albumin Arterial Blood Glucose Urine WBC (Auto) Urine Creatinine 01/25/20 01/25/20 01/25/20 04:25 05:38 11:52 WBC RBC Hgb Hct MCHC RDW MCV MCH Lymph % (Auto) Miller % (Auto) Miller # Eos # Lymph # (Auto) Miller # (Auto) Eos # (Auto) Seg Neutrophils % Seg Neuts % (Manual) Baso # (Auto) Lymphocytes % (Manual) Monocytes % (Manual) Eosinophils % (Manual) Basophils % (Manual) Seg Neutrophils # Seg Neutrophils # Man Lymphocytes # (Manual) Monocytes # (Manual) Eosinophils # (Manual) Nucleated RBC % Basophils # (Manual) PT INR APTT Heparin Anti-Xa Level ABG pH POC ABG pO2 ABG pO2 ABG HCO3 ABG O2 Saturation ABG Base Excess POC ABG pCO2 ABG Hemoglobin ABG Oxyhemoglobin ABG Chloride ABG Glucose Oxyhemoglobin Sodium Potassium Chloride Carbon Dioxide BUN 30 H Creatinine Glucose 134 H POC Glucose 129 H 134 H Lactic Acid Calcium Phosphorus Magnesium AST ALT Lactate Dehydrogenase Total Bilirubin Direct Bilirubin CK-MB (CK-2) C-Reactive Protein NT-Pro-B Natriuret Pep Total Protein Albumin Arterial Blood Glucose Urine WBC (Auto) Urine Creatinine 11/05/1401/25/20 01/26/20 17:13 21:02 00:59 WBC RBC Hgb Hct MCHC RDW MCV MCH Lymph % (Auto) Miller % (Auto) Miller # Eos # Lymph # (Auto) Miller # (Auto) Eos # (Auto) Seg Neutrophils % Seg Neuts % (Manual) Baso # (Auto) Lymphocytes % (Manual) Monocytes % (Manual) Eosinophils % (Manual) Basophils % (Manual) Seg Neutrophils # Seg Neutrophils # Man Lymphocytes # (Manual) Monocytes # (Manual) Eosinophils # (Manual) Nucleated RBC % Basophils # (Manual) PT INR APTT Heparin Anti-Xa Level ABG pH POC ABG pO2 ABG pO2 57.5 L ABG HCO3 31.7 H ABG O2 Saturation 90.3 L ABG Base Excess 6.6 H POC ABG pCO2 ABG Hemoglobin 13.0 L ABG Oxyhemoglobin ABG Chloride ABG Glucose Oxyhemoglobin 87.5 L Sodium Potassium Chloride Carbon Dioxide BUN Creatinine Glucose POC Glucose 124 H 196 H Lactic Acid Calcium Phosphorus Magnesium AST ALT Lactate Dehydrogenase Total Bilirubin Direct Bilirubin CK-MB (CK-2) C-Reactive Protein NT-Pro-B Natriuret Pep Total Protein Albumin Arterial Blood Glucose Urine WBC (Auto) Urine Creatinine 01/26/20 01/26/20 01/26/20 03:20 05:46 12:46 WBC RBC Hgb 9.2 L Hct 29.4 L MCHC RDW MCV MCH Lymph % (Auto) Miller % (Auto) Miller # Eos # Lymph # (Auto) Miller # (Auto) Eos # (Auto) Seg Neutrophils % Seg Neuts % (Manual) Baso # (Auto) Lymphocytes % (Manual) Monocytes % (Manual) Eosinophils % (Manual) Basophils % (Manual) Seg Neutrophils # Seg Neutrophils # Man Lymphocytes # (Manual) Monocytes # (Manual) Eosinophils # (Manual) Nucleated RBC % Basophils # (Manual) PT INR APTT Heparin Anti-Xa Level ABG pH POC ABG pO2 ABG pO2 ABG HCO3 ABG O2 Saturation ABG Base Excess POC ABG pCO2 ABG Hemoglobin ABG Oxyhemoglobin ABG Chloride ABG Glucose Oxyhemoglobin Sodium Potassium Chloride Carbon Dioxide BUN Creatinine Glucose POC Glucose 141 H 122 H Lactic Acid Calcium Phosphorus Magnesium AST ALT Lactate Dehydrogenase Total Bilirubin Direct Bilirubin CK-MB (CK-2) C-Reactive Protein NT-Pro-B Natriuret Pep Total Protein Albumin Arterial Blood Glucose Urine WBC (Auto) Urine Creatinine 01/26/20 01/26/20 01/27/20 18:03 23:55 04:47 WBC RBC Hgb Hct MCHC RDW MCV MCH Lymph % (Auto) Miller % (Auto) Miller # Eos # Lymph # (Auto) Miller # (Auto) Eos # (Auto) Seg Neutrophils % Seg Neuts % (Manual) Baso # (Auto) Lymphocytes % (Manual) Monocytes % (Manual) Eosinophils % (Manual) Basophils % (Manual) Seg Neutrophils # Seg Neutrophils # Man Lymphocytes # (Manual) Monocytes # (Manual) Eosinophils # (Manual) Nucleated RBC % Basophils # (Manual) PT INR APTT Heparin Anti-Xa Level ABG pH POC ABG pO2 ABG pO2 ABG HCO3 ABG O2 Saturation ABG Base Excess POC ABG pCO2 ABG Hemoglobin ABG Oxyhemoglobin ABG Chloride ABG Glucose Oxyhemoglobin Sodium Potassium Chloride Carbon Dioxide BUN 30 H Creatinine 0.7 L Glucose 135 H POC Glucose 142 H 159 H Lactic Acid Calcium Phosphorus Magnesium AST ALT Lactate Dehydrogenase Total Bilirubin Direct Bilirubin CK-MB (CK-2) C-Reactive Protein NT-Pro-B Natriuret Pep Total Protein Albumin Arterial Blood Glucose Urine WBC (Auto) Urine Creatinine 01/27/20 01/27/20 01/27/20 05:43 12:06 17:16 WBC RBC Hgb Hct MCHC RDW MCV MCH Lymph % (Auto) Miller % (Auto) Miller # Eos # Lymph # (Auto) Miller # (Auto) Eos # (Auto) Seg Neutrophils % Seg Neuts % (Manual) Baso # (Auto) Lymphocytes % (Manual) Monocytes % (Manual) Eosinophils % (Manual) Basophils % (Manual) Seg Neutrophils # Seg Neutrophils # Man Lymphocytes # (Manual) Monocytes # (Manual) Eosinophils # (Manual) Nucleated RBC % Basophils # (Manual) PT INR APTT Heparin Anti-Xa Level ABG pH POC ABG pO2 ABG pO2 ABG HCO3 ABG O2 Saturation ABG Base Excess POC ABG pCO2 ABG Hemoglobin ABG Oxyhemoglobin ABG Chloride ABG Glucose Oxyhemoglobin Sodium Potassium Chloride Carbon Dioxide BUN Creatinine Glucose POC Glucose 143 H 142 H 128 H Lactic Acid Calcium Phosphorus Magnesium AST ALT Lactate Dehydrogenase Total Bilirubin Direct Bilirubin CK-MB (CK-2) C-Reactive Protein NT-Pro-B Natriuret Pep Total Protein Albumin Arterial Blood Glucose Urine WBC (Auto) Urine Creatinine 01/27/20 01/28/20 01/28/20 23:55 04:37 05:55 WBC RBC Hgb 9.4 L Hct 29.9 L MCHC RDW MCV MCH Lymph % (Auto) Miller % (Auto) Miller # Eos # Lymph # (Auto) Miller # (Auto) Eos # (Auto) Seg Neutrophils % Seg Neuts % (Manual) Baso # (Auto) Lymphocytes % (Manual) Monocytes % (Manual) Eosinophils % (Manual) Basophils % (Manual) Seg Neutrophils # Seg Neutrophils # Man Lymphocytes # (Manual) Monocytes # (Manual) Eosinophils # (Manual) Nucleated RBC % Basophils # (Manual) PT INR APTT Heparin Anti-Xa Level ABG pH POC ABG pO2 ABG pO2 ABG HCO3 ABG O2 Saturation ABG Base Excess POC ABG pCO2 ABG Hemoglobin ABG Oxyhemoglobin ABG Chloride ABG Glucose Oxyhemoglobin Sodium Potassium Chloride Carbon Dioxide BUN Creatinine Glucose POC Glucose 166 H 169 H Lactic Acid Calcium Phosphorus Magnesium AST ALT Lactate Dehydrogenase Total Bilirubin Direct Bilirubin CK-MB (CK-2) C-Reactive Protein NT-Pro-B Natriuret Pep Total Protein Albumin Arterial Blood Glucose Urine WBC (Auto) Urine Creatinine 01/28/20 01/28/20 01/28/20 11:58 17:26 23:46 WBC RBC Hgb Hct MCHC RDW MCV MCH Lymph % (Auto) Miller % (Auto) Miller # Eos # Lymph # (Auto) Miller # (Auto) Eos # (Auto) Seg Neutrophils % Seg Neuts % (Manual) Baso # (Auto) Lymphocytes % (Manual) Monocytes % (Manual) Eosinophils % (Manual) Basophils % (Manual) Seg Neutrophils # Seg Neutrophils # Man Lymphocytes # (Manual) Monocytes # (Manual) Eosinophils # (Manual) Nucleated RBC % Basophils # (Manual) PT INR APTT Heparin Anti-Xa Level ABG pH POC ABG pO2 ABG pO2 ABG HCO3 ABG O2 Saturation ABG Base Excess POC ABG pCO2 ABG Hemoglobin ABG Oxyhemoglobin ABG Chloride ABG Glucose Oxyhemoglobin Sodium Potassium Chloride Carbon Dioxide BUN Creatinine Glucose POC Glucose 130 H 126 H 150 H Lactic Acid Calcium Phosphorus Magnesium AST ALT Lactate Dehydrogenase Total Bilirubin Direct Bilirubin CK-MB (CK-2) C-Reactive Protein NT-Pro-B Natriuret Pep Total Protein Albumin Arterial Blood Glucose Urine WBC (Auto) Urine Creatinine 01/29/20 01/29/20 01/29/20 04:55 06:00 12:28 WBC RBC Hgb Hct MCHC RDW MCV MCH Lymph % (Auto) Miller % (Auto) Miller # Eos # Lymph # (Auto) Miller # (Auto) Eos # (Auto) Seg Neutrophils % Seg Neuts % (Manual) Baso # (Auto) Lymphocytes % (Manual) Monocytes % (Manual) Eosinophils % (Manual) Basophils % (Manual) Seg Neutrophils # Seg Neutrophils # Man Lymphocytes # (Manual) Monocytes # (Manual) Eosinophils # (Manual) Nucleated RBC % Basophils # (Manual) PT INR APTT Heparin Anti-Xa Level ABG pH POC ABG pO2 ABG pO2 ABG HCO3 ABG O2 Saturation ABG Base Excess POC ABG pCO2 ABG Hemoglobin ABG Oxyhemoglobin ABG Chloride ABG Glucose Oxyhemoglobin Sodium Potassium Chloride Carbon Dioxide 34 H BUN Creatinine 0.6 L Glucose 152 H POC Glucose 157 H 156 H Lactic Acid Calcium Phosphorus Magnesium AST ALT Lactate Dehydrogenase Total Bilirubin Direct Bilirubin CK-MB (CK-2) C-Reactive Protein NT-Pro-B Natriuret Pep Total Protein Albumin Arterial Blood Glucose Urine WBC (Auto) Urine Creatinine 01/29/20 01/30/20 01/30/20 19:06 00:29 05:39 WBC RBC Hgb Hct MCHC RDW MCV MCH Lymph % (Auto) Miller % (Auto) Miller # Eos # Lymph # (Auto) Miller # (Auto) Eos # (Auto) Seg Neutrophils % Seg Neuts % (Manual) Baso # (Auto) Lymphocytes % (Manual) Monocytes % (Manual) Eosinophils % (Manual) Basophils % (Manual) Seg Neutrophils # Seg Neutrophils # Man Lymphocytes # (Manual) Monocytes # (Manual) Eosinophils # (Manual) Nucleated RBC % Basophils # (Manual) PT INR APTT Heparin Anti-Xa Level ABG pH POC ABG pO2 ABG pO2 ABG HCO3 ABG O2 Saturation ABG Base Excess POC ABG pCO2 ABG Hemoglobin ABG Oxyhemoglobin ABG Chloride ABG Glucose Oxyhemoglobin Sodium Potassium Chloride Carbon Dioxide BUN Creatinine Glucose POC Glucose 152 H 132 H 159 H Lactic Acid Calcium Phosphorus Magnesium AST ALT Lactate Dehydrogenase Total Bilirubin Direct Bilirubin CK-MB (CK-2) C-Reactive Protein NT-Pro-B Natriuret Pep Total Protein Albumin Arterial Blood Glucose Urine WBC (Auto) Urine Creatinine 01/30/20 01/30/2020 12:27 17:42 23:28 WBC RBC Hgb Hct MCHC RDW MCV MCH Lymph % (Auto) Miller % (Auto) Miller # Eos # Lymph # (Auto) Miller # (Auto) Eos # (Auto) Seg Neutrophils % Seg Neuts % (Manual) Baso # (Auto) Lymphocytes % (Manual) Monocytes % (Manual) Eosinophils % (Manual) Basophils % (Manual) Seg Neutrophils # Seg Neutrophils # Man Lymphocytes # (Manual) Monocytes # (Manual) Eosinophils # (Manual) Nucleated RBC % Basophils # (Manual) PT INR APTT Heparin Anti-Xa Level ABG pH POC ABG pO2 ABG pO2 ABG HCO3 ABG O2 Saturation ABG Base Excess POC ABG pCO2 ABG Hemoglobin ABG Oxyhemoglobin ABG Chloride ABG Glucose Oxyhemoglobin Sodium Potassium Chloride Carbon Dioxide BUN Creatinine Glucose POC Glucose 151 H 144 H 164 H Lactic Acid Calcium Phosphorus Magnesium AST ALT Lactate Dehydrogenase Total Bilirubin Direct Bilirubin CK-MB (CK-2) C-Reactive Protein NT-Pro-B Natriuret Pep Total Protein Albumin Arterial Blood Glucose Urine WBC (Auto) Urine Creatinine 01/31/20 01/31/20 01/31/20 05:51 11:51 18:06 WBC RBC Hgb Hct MCHC RDW MCV MCH Lymph % (Auto) Miller % (Auto) Miller # Eos # Lymph # (Auto) Miller # (Auto) Eos # (Auto) Seg Neutrophils % Seg Neuts % (Manual) Baso # (Auto) Lymphocytes % (Manual) Monocytes % (Manual) Eosinophils % (Manual) Basophils % (Manual) Seg Neutrophils # Seg Neutrophils # Man Lymphocytes # (Manual) Monocytes # (Manual) Eosinophils # (Manual) Nucleated RBC % Basophils # (Manual) PT INR APTT Heparin Anti-Xa Level ABG pH POC ABG pO2 ABG pO2 ABG HCO3 ABG O2 Saturation ABG Base Excess POC ABG pCO2 ABG Hemoglobin ABG Oxyhemoglobin ABG Chloride ABG Glucose Oxyhemoglobin Sodium Potassium Chloride Carbon Dioxide BUN Creatinine Glucose POC Glucose 131 H 167 H 210 H Lactic Acid Calcium Phosphorus Magnesium AST ALT Lactate Dehydrogenase Total Bilirubin Direct Bilirubin CK-MB (CK-2) C-Reactive Protein NT-Pro-B Natriuret Pep Total Protein Albumin Arterial Blood Glucose Urine WBC (Auto) Urine Creatinine 01/31/20 01/31/20 02/01/20 19:24 Unknown 00:34 WBC RBC Hgb Hct MCHC RDW MCV MCH Lymph % (Auto) Miller % (Auto) Miller # Eos # Lymph # (Auto) Miller # (Auto) Eos # (Auto) Seg Neutrophils % Seg Neuts % (Manual) Baso # (Auto) Lymphocytes % (Manual) Monocytes % (Manual) Eosinophils % (Manual) Basophils % (Manual) Seg Neutrophils # Seg Neutrophils # Man Lymphocytes # (Manual) Monocytes # (Manual) Eosinophils # (Manual) Nucleated RBC % Basophils # (Manual) PT INR APTT Heparin Anti-Xa Level ABG pH POC ABG pO2 ABG pO2 ABG HCO3 ABG O2 Saturation ABG Base Excess POC ABG pCO2 ABG Hemoglobin ABG Oxyhemoglobin ABG Chloride ABG Glucose Oxyhemoglobin Sodium Potassium Chloride 95.3 L Carbon Dioxide 33 H BUN 36 H Creatinine Glucose 187 H POC Glucose 116 H Lactic Acid Calcium Phosphorus Magnesium AST ALT Lactate Dehydrogenase Total Bilirubin Direct Bilirubin CK-MB (CK-2) C-Reactive Protein NT-Pro-B Natriuret Pep Total Protein Albumin Arterial Blood Glucose Urine WBC (Auto) Urine Creatinine 57.4 H 02/01/20 02/01/20 02/01/20 05:24 10:40 12:29 WBC RBC Hgb Hct MCHC RDW MCV MCH Lymph % (Auto) Miller % (Auto) Miller # Eos # Lymph # (Auto) Miller # (Auto) Eos # (Auto) Seg Neutrophils % Seg Neuts % (Manual) Baso # (Auto) Lymphocytes % (Manual) Monocytes % (Manual) Eosinophils % (Manual) Basophils % (Manual) Seg Neutrophils # Seg Neutrophils # Man Lymphocytes # (Manual) Monocytes # (Manual) Eosinophils # (Manual) Nucleated RBC % Basophils # (Manual) PT INR APTT Heparin Anti-Xa Level ABG pH POC ABG pO2 ABG pO2 ABG HCO3 ABG O2 Saturation ABG Base Excess POC ABG pCO2 ABG Hemoglobin ABG Oxyhemoglobin ABG Chloride ABG Glucose Oxyhemoglobin Sodium Potassium Chloride Carbon Dioxide BUN Creatinine Glucose POC Glucose 142 H 165 H 151 H Lactic Acid Calcium Phosphorus Magnesium AST ALT Lactate Dehydrogenase Total Bilirubin Direct Bilirubin CK-MB (CK-2) C-Reactive Protein NT-Pro-B Natriuret Pep Total Protein Albumin Arterial Blood Glucose Urine WBC (Auto) Urine Creatinine 02/01/20 02/01/20 02/02/20 17:16 23:23 06:36 WBC RBC Hgb Hct MCHC RDW MCV MCH Lymph % (Auto) Miller % (Auto) Miller # Eos # Lymph # (Auto) Miller # (Auto) Eos # (Auto) Seg Neutrophils % Seg Neuts % (Manual) Baso # (Auto) Lymphocytes % (Manual) Monocytes % (Manual) Eosinophils % (Manual) Basophils % (Manual) Seg Neutrophils # Seg Neutrophils # Man Lymphocytes # (Manual) Monocytes # (Manual) Eosinophils # (Manual) Nucleated RBC % Basophils # (Manual) PT INR APTT Heparin Anti-Xa Level ABG pH POC ABG pO2 ABG pO2 ABG HCO3 ABG O2 Saturation ABG Base Excess POC ABG pCO2 ABG Hemoglobin ABG Oxyhemoglobin ABG Chloride ABG Glucose Oxyhemoglobin Sodium Potassium Chloride Carbon Dioxide BUN Creatinine Glucose POC Glucose 137 H 145 H 181 H Lactic Acid Calcium Phosphorus Magnesium AST ALT Lactate Dehydrogenase Total Bilirubin Direct Bilirubin CK-MB (CK-2) C-Reactive Protein NT-Pro-B Natriuret Pep Total Protein Albumin Arterial Blood Glucose Urine WBC (Auto) Urine Creatinine 02/02/20 02/02/20 02/02/20 10:01 12:05 17:54 WBC RBC Hgb Hct MCHC RDW MCV MCH Lymph % (Auto) Miller % (Auto) Miller # Eos # Lymph # (Auto) Miller # (Auto) Eos # (Auto) Seg Neutrophils % Seg Neuts % (Manual) Baso # (Auto) Lymphocytes % (Manual) Monocytes % (Manual) Eosinophils % (Manual) Basophils % (Manual) Seg Neutrophils # Seg Neutrophils # Man Lymphocytes # (Manual) Monocytes # (Manual) Eosinophils # (Manual) Nucleated RBC % Basophils # (Manual) PT INR APTT Heparin Anti-Xa Level ABG pH POC ABG pO2 ABG pO2 ABG HCO3 ABG O2 Saturation ABG Base Excess POC ABG pCO2 ABG Hemoglobin ABG Oxyhemoglobin ABG Chloride ABG Glucose Oxyhemoglobin Sodium Potassium Chloride 95.3 L Carbon Dioxide BUN 44 H Creatinine Glucose 234 H POC Glucose 184 H 127 H Lactic Acid Calcium Phosphorus Magnesium AST 363 H ALT 457 H Lactate Dehydrogenase Total Bilirubin Direct Bilirubin CK-MB (CK-2) C-Reactive Protein NT-Pro-B Natriuret Pep Total Protein Albumin 3.0 L Arterial Blood Glucose Urine WBC (Auto) Urine Creatinine 02/02/20 02/03/20 02/03/20 23:47 05:32 07:04 WBC 13.0 H RBC Hgb 9.5 L Hct 30.8 L MCHC 31 L RDW 19.6 H MCV 81 L MCH 25 L Lymph % (Auto) Miller % (Auto) 9.4 H Miller # Eos # Lymph # (Auto) Miller # (Auto) 1.2 H Eos # (Auto) Seg Neutrophils % 72.3 H Seg Neuts % (Manual) Baso # (Auto) Lymphocytes % (Manual) Monocytes % (Manual) Eosinophils % (Manual) Basophils % (Manual) Seg Neutrophils # 9.4 H Seg Neutrophils # Man Lymphocytes # (Manual) Monocytes # (Manual) Eosinophils # (Manual) Nucleated RBC % Basophils # (Manual) PT INR APTT Heparin Anti-Xa Level ABG pH POC ABG pO2 ABG pO2 ABG HCO3 ABG O2 Saturation ABG Base Excess POC ABG pCO2 ABG Hemoglobin ABG Oxyhemoglobin ABG Chloride ABG Glucose Oxyhemoglobin Sodium Potassium Chloride Carbon Dioxide BUN Creatinine Glucose POC Glucose 124 H 129 H Lactic Acid Calcium Phosphorus Magnesium AST ALT Lactate Dehydrogenase Total Bilirubin Direct Bilirubin CK-MB (CK-2) C-Reactive Protein NT-Pro-B Natriuret Pep Total Protein Albumin Arterial Blood Glucose Urine WBC (Auto) Urine Creatinine 02/03/20 02/03/20 02/03/20 07:04 11:32 12:49 WBC RBC Hgb Hct MCHC RDW MCV MCH Lymph % (Auto) Miller % (Auto) Miller # Eos # Lymph # (Auto) Miller # (Auto) Eos # (Auto) Seg Neutrophils % Seg Neuts % (Manual) Baso # (Auto) Lymphocytes % (Manual) Monocytes % (Manual) Eosinophils % (Manual) Basophils % (Manual) Seg Neutrophils # Seg Neutrophils # Man Lymphocytes # (Manual) Monocytes # (Manual) Eosinophils # (Manual) Nucleated RBC % Basophils # (Manual) PT INR APTT Heparin Anti-Xa Level ABG pH POC ABG pO2 ABG pO2 ABG HCO3 ABG O2 Saturation ABG Base Excess POC ABG pCO2 ABG Hemoglobin ABG Oxyhemoglobin ABG Chloride ABG Glucose Oxyhemoglobin Sodium Potassium Chloride 97.9 L Carbon Dioxide 33 H BUN 39 H Creatinine Glucose 119 H POC Glucose 138 H Lactic Acid Calcium Phosphorus Magnesium 2.60 H AST ALT Lactate Dehydrogenase Total Bilirubin Direct Bilirubin CK-MB (CK-2) C-Reactive Protein NT-Pro-B Natriuret Pep Total Protein Albumin Arterial Blood Glucose Urine WBC (Auto) Urine Creatinine 02/03/20 02/04/20 02/04/20 18:28 16:24 16:24 WBC RBC 3.38 L Hgb 8.6 L Hct 26.9 L MCHC RDW 19.5 H MCV 80 L MCH 26 L Lymph % (Auto) Miller % (Auto) Miller # Eos # Lymph # (Auto) Miller # (Auto) Eos # (Auto) Seg Neutrophils % Seg Neuts % (Manual) Baso # (Auto) Lymphocytes % (Manual) Monocytes % (Manual) Eosinophils % (Manual) Basophils % (Manual) Seg Neutrophils # Seg Neutrophils # Man Lymphocytes # (Manual) Monocytes # (Manual) Eosinophils # (Manual) Nucleated RBC % Basophils # (Manual) PT INR APTT Heparin Anti-Xa Level ABG pH POC ABG pO2 ABG pO2 ABG HCO3 ABG O2 Saturation ABG Base Excess POC ABG pCO2 ABG Hemoglobin ABG Oxyhemoglobin ABG Chloride ABG Glucose Oxyhemoglobin Sodium Potassium 3.4 L Chloride Carbon Dioxide 31 H BUN 37 H Creatinine Glucose 70 L POC Glucose 118 H Lactic Acid Calcium Phosphorus Magnesium AST 169 H ALT 394 H Lactate Dehydrogenase Total Bilirubin 1.50 H Direct Bilirubin CK-MB (CK-2) C-Reactive Protein NT-Pro-B Natriuret Pep Total Protein Albumin 2.9 L Arterial Blood Glucose Urine WBC (Auto) Urine Creatinine 02/05/20 02/05/20 02/05/20 00:41 06:37 17:14 WBC RBC Hgb Hct MCHC RDW MCV MCH Lymph % (Auto) Miller % (Auto) Miller # Eos # Lymph # (Auto) Miller # (Auto) Eos # (Auto) Seg Neutrophils % Seg Neuts % (Manual) Baso # (Auto) Lymphocytes % (Manual) Monocytes % (Manual) Eosinophils % (Manual) Basophils % (Manual) Seg Neutrophils # Seg Neutrophils # Man Lymphocytes # (Manual) Monocytes # (Manual) Eosinophils # (Manual) Nucleated RBC % Basophils # (Manual) PT INR APTT Heparin Anti-Xa Level ABG pH POC ABG pO2 ABG pO2 ABG HCO3 ABG O2 Saturation ABG Base Excess POC ABG pCO2 ABG Hemoglobin ABG Oxyhemoglobin ABG Chloride ABG Glucose Oxyhemoglobin Sodium Potassium 3.1 L Chloride Carbon Dioxide 35 H BUN 32 H Creatinine 0.7 L Glucose POC Glucose 69 L 127 H Lactic Acid Calcium Phosphorus Magnesium AST 134 H ALT 352 H Lactate Dehydrogenase Total Bilirubin 1.60 H Direct Bilirubin CK-MB (CK-2) C-Reactive Protein NT-Pro-B Natriuret Pep Total Protein Albumin 2.9 L Arterial Blood Glucose Urine WBC (Auto) Urine Creatinine 02/05/20 02/06/20 02/06/20 23:43 05:32 08:01 WBC RBC Hgb Hct MCHC RDW MCV MCH Lymph % (Auto) Miller % (Auto) Miller # Eos # Lymph # (Auto) Miller # (Auto) Eos # (Auto) Seg Neutrophils % Seg Neuts % (Manual) Baso # (Auto) Lymphocytes % (Manual) Monocytes % (Manual) Eosinophils % (Manual) Basophils % (Manual) Seg Neutrophils # Seg Neutrophils # Man Lymphocytes # (Manual) Monocytes # (Manual) Eosinophils # (Manual) Nucleated RBC % Basophils # (Manual) PT INR APTT Heparin Anti-Xa Level ABG pH POC ABG pO2 ABG pO2 ABG HCO3 ABG O2 Saturation ABG Base Excess POC ABG pCO2 ABG Hemoglobin ABG Oxyhemoglobin ABG Chloride ABG Glucose Oxyhemoglobin Sodium Potassium Chloride Carbon Dioxide BUN 40 H Creatinine Glucose 132 H POC Glucose 129 H 131 H Lactic Acid Calcium Phosphorus Magnesium AST ALT Lactate Dehydrogenase Total Bilirubin Direct Bilirubin CK-MB (CK-2) C-Reactive Protein NT-Pro-B Natriuret Pep Total Protein Albumin Arterial Blood Glucose Urine WBC (Auto) Urine Creatinine 02/06/20 02/06/20 02/06/20 11:51 16:28 17:32 WBC RBC Hgb Hct MCHC RDW MCV MCH Lymph % (Auto) Miller % (Auto) Miller # Eos # Lymph # (Auto) Miller # (Auto) Eos # (Auto) Seg Neutrophils % Seg Neuts % (Manual) Baso # (Auto) Lymphocytes % (Manual) Monocytes % (Manual) Eosinophils % (Manual) Basophils % (Manual) Seg Neutrophils # Seg Neutrophils # Man Lymphocytes # (Manual) Monocytes # (Manual) Eosinophils # (Manual) Nucleated RBC % Basophils # (Manual) PT INR APTT Heparin Anti-Xa Level ABG pH POC ABG pO2 ABG pO2 ABG HCO3 ABG O2 Saturation ABG Base Excess POC ABG pCO2 ABG Hemoglobin ABG Oxyhemoglobin ABG Chloride ABG Glucose Oxyhemoglobin Sodium Potassium Chloride Carbon Dioxide BUN Creatinine Glucose POC Glucose 167 H 129 H Lactic Acid Calcium Phosphorus Magnesium AST 824 H ALT 948 H Lactate Dehydrogenase Total Bilirubin 1.70 H Direct Bilirubin 1.2 H CK-MB (CK-2) C-Reactive Protein NT-Pro-B Natriuret Pep Total Protein Albumin 2.9 L Arterial Blood Glucose Urine WBC (Auto) Urine Creatinine 02/07/20 02/07/20 02/07/20 00:11 04:57 04:57 WBC RBC Hgb 9.2 L Hct 29.7 L MCHC 31 L RDW 20.2 H MCV 80 L MCH 25 L Lymph % (Auto) Miller % (Auto) Miller # Eos # Lymph # (Auto) Miller # (Auto) Eos # (Auto) Seg Neutrophils % Seg Neuts % (Manual) Baso # (Auto) Lymphocytes % (Manual) Monocytes % (Manual) Eosinophils % (Manual) Basophils % (Manual) Seg Neutrophils # Seg Neutrophils # Man Lymphocytes # (Manual) Monocytes # (Manual) Eosinophils # (Manual) Nucleated RBC % Basophils # (Manual) PT INR APTT Heparin Anti-Xa Level ABG pH POC ABG pO2 ABG pO2 ABG HCO3 ABG O2 Saturation ABG Base Excess POC ABG pCO2 ABG Hemoglobin ABG Oxyhemoglobin ABG Chloride ABG Glucose Oxyhemoglobin Sodium Potassium 3.4 L D Chloride Carbon Dioxide 32 H BUN 39 H Creatinine Glucose 106 H POC Glucose 121 H Lactic Acid Calcium Phosphorus Magnesium AST ALT Lactate Dehydrogenase Total Bilirubin Direct Bilirubin CK-MB (CK-2) C-Reactive Protein NT-Pro-B Natriuret Pep Total Protein Albumin Arterial Blood Glucose Urine WBC (Auto) Urine Creatinine 02/07/20 02/07/20 02/07/20 15:03 15:03 17:11 WBC RBC Hgb Hct MCHC RDW MCV MCH Lymph % (Auto) Miller % (Auto) Miller # Eos # Lymph # (Auto) Miller # (Auto) Eos # (Auto) Seg Neutrophils % Seg Neuts % (Manual) Baso # (Auto) Lymphocytes % (Manual) Monocytes % (Manual) Eosinophils % (Manual) Basophils % (Manual) Seg Neutrophils # Seg Neutrophils # Man Lymphocytes # (Manual) Monocytes # (Manual) Eosinophils # (Manual) Nucleated RBC % Basophils # (Manual) PT 27.0 H INR 2.46 H APTT Heparin Anti-Xa Level ABG pH POC ABG pO2 ABG pO2 ABG HCO3 ABG O2 Saturation ABG Base Excess POC ABG pCO2 ABG Hemoglobin ABG Oxyhemoglobin ABG Chloride ABG Glucose Oxyhemoglobin Sodium Potassium Chloride Carbon Dioxide BUN Creatinine Glucose POC Glucose 109 H Lactic Acid Calcium Phosphorus Magnesium AST 424 H ALT 796 H Lactate Dehydrogenase Total Bilirubin 1.60 H Direct Bilirubin 1.2 H CK-MB (CK-2) C-Reactive Protein NT-Pro-B Natriuret Pep Total Protein Albumin 2.9 L Arterial Blood Glucose Urine WBC (Auto) Urine Creatinine 02/08/20 02/08/20 02/08/20 12:14 17:44 19:00 WBC RBC Hgb Hct MCHC RDW MCV MCH Lymph % (Auto) Miller % (Auto) Miller # Eos # Lymph # (Auto) Miller # (Auto) Eos # (Auto) Seg Neutrophils % Seg Neuts % (Manual) Baso # (Auto) Lymphocytes % (Manual) Monocytes % (Manual) Eosinophils % (Manual) Basophils % (Manual) Seg Neutrophils # Seg Neutrophils # Man Lymphocytes # (Manual) Monocytes # (Manual) Eosinophils # (Manual) Nucleated RBC % Basophils # (Manual) PT INR APTT Heparin Anti-Xa Level ABG pH POC ABG pO2 ABG pO2 ABG HCO3 ABG O2 Saturation ABG Base Excess POC ABG pCO2 ABG Hemoglobin ABG Oxyhemoglobin ABG Chloride ABG Glucose Oxyhemoglobin Sodium Potassium Chloride Carbon Dioxide BUN Creatinine Glucose POC Glucose 111 H 107 H Lactic Acid Calcium Phosphorus Magnesium AST 309 H ALT 650 H Lactate Dehydrogenase Total Bilirubin 1.30 H Direct Bilirubin 0.9 H CK-MB (CK-2) C-Reactive Protein NT-Pro-B Natriuret Pep Total Protein 6.2 L Albumin 2.7 L Arterial Blood Glucose Urine WBC (Auto) Urine Creatinine 02/09/20 02/09/20 02/09/20 05:41 12:28 18:07 WBC RBC Hgb Hct MCHC RDW MCV MCH Lymph % (Auto) Miller % (Auto) Miller # Eos # Lymph # (Auto) Miller # (Auto) Eos # (Auto) Seg Neutrophils % Seg Neuts % (Manual) Baso # (Auto) Lymphocytes % (Manual) Monocytes % (Manual) Eosinophils % (Manual) Basophils % (Manual) Seg Neutrophils # Seg Neutrophils # Man Lymphocytes # (Manual) Monocytes # (Manual) Eosinophils # (Manual) Nucleated RBC % Basophils # (Manual) PT INR APTT Heparin Anti-Xa Level ABG pH POC ABG pO2 ABG pO2 ABG HCO3 ABG O2 Saturation ABG Base Excess POC ABG pCO2 ABG Hemoglobin ABG Oxyhemoglobin ABG Chloride ABG Glucose Oxyhemoglobin Sodium Potassium Chloride Carbon Dioxide BUN Creatinine Glucose POC Glucose 113 H 140 H 143 H Lactic Acid Calcium Phosphorus Magnesium AST ALT Lactate Dehydrogenase Total Bilirubin Direct Bilirubin CK-MB (CK-2) C-Reactive Protein NT-Pro-B Natriuret Pep Total Protein Albumin Arterial Blood Glucose Urine WBC (Auto) Urine Creatinine 02/09/20 02/09/20 02/10/20 21:40 23:45 06:00 WBC RBC Hgb Hct MCHC RDW MCV MCH Lymph % (Auto) Miller % (Auto) Miller # Eos # Lymph # (Auto) Miller # (Auto) Eos # (Auto) Seg Neutrophils % Seg Neuts % (Manual) Baso # (Auto) Lymphocytes % (Manual) Monocytes % (Manual) Eosinophils % (Manual) Basophils % (Manual) Seg Neutrophils # Seg Neutrophils # Man Lymphocytes # (Manual) Monocytes # (Manual) Eosinophils # (Manual) Nucleated RBC % Basophils # (Manual) PT INR APTT Heparin Anti-Xa Level ABG pH POC ABG pO2 ABG pO2 59.8 L ABG HCO3 33.3 H ABG O2 Saturation 88.9 L ABG Base Excess 7.4 H POC ABG pCO2 ABG Hemoglobin 10.4 L ABG Oxyhemoglobin ABG Chloride ABG Glucose Oxyhemoglobin 86.3 L Sodium Potassium Chloride Carbon Dioxide BUN Creatinine Glucose POC Glucose 127 H 114 H Lactic Acid Calcium Phosphorus Magnesium AST ALT Lactate Dehydrogenase Total Bilirubin Direct Bilirubin CK-MB (CK-2) C-Reactive Protein NT-Pro-B Natriuret Pep Total Protein Albumin Arterial Blood Glucose Urine WBC (Auto) Urine Creatinine 02/10/20 02/10/20 02/10/20 07:40 07:40 13:38 WBC 11.5 H RBC Hgb 10.6 L Hct 34.7 L MCHC 31 L RDW 19.8 H MCV 79 L MCH 24 L Lymph % (Auto) Miller % (Auto) 9.2 H Miller # Eos # Lymph # (Auto) Miller # (Auto) 1.1 H Eos # (Auto) Seg Neutrophils % Seg Neuts % (Manual) Baso # (Auto) Lymphocytes % (Manual) Monocytes % (Manual) Eosinophils % (Manual) Basophils % (Manual) Seg Neutrophils # Seg Neutrophils # Man Lymphocytes # (Manual) Monocytes # (Manual) Eosinophils # (Manual) Nucleated RBC % Basophils # (Manual) PT INR APTT Heparin Anti-Xa Level ABG pH POC ABG pO2 ABG pO2 ABG HCO3 ABG O2 Saturation ABG Base Excess POC ABG pCO2 ABG Hemoglobin ABG Oxyhemoglobin ABG Chloride ABG Glucose Oxyhemoglobin Sodium 151 H Potassium Chloride 107.2 H Carbon Dioxide 36 H BUN 25 H Creatinine 0.7 L Glucose 114 H POC Glucose 116 H Lactic Acid Calcium Phosphorus Magnesium 2.40 H AST ALT Lactate Dehydrogenase Total Bilirubin Direct Bilirubin CK-MB (CK-2) C-Reactive Protein NT-Pro-B Natriuret Pep Total Protein Albumin Arterial Blood Glucose Urine WBC (Auto) Urine Creatinine 02/10/20 02/11/20 02/11/20 17:44 05:47 12:21 WBC RBC Hgb Hct MCHC RDW MCV MCH Lymph % (Auto) Miller % (Auto) Miller # Eos # Lymph # (Auto) Miller # (Auto) Eos # (Auto) Seg Neutrophils % Seg Neuts % (Manual) Baso # (Auto) Lymphocytes % (Manual) Monocytes % (Manual) Eosinophils % (Manual) Basophils % (Manual) Seg Neutrophils # Seg Neutrophils # Man Lymphocytes # (Manual) Monocytes # (Manual) Eosinophils # (Manual) Nucleated RBC % Basophils # (Manual) PT INR APTT Heparin Anti-Xa Level ABG pH POC ABG pO2 ABG pO2 ABG HCO3 ABG O2 Saturation ABG Base Excess POC ABG pCO2 ABG Hemoglobin ABG Oxyhemoglobin ABG Chloride ABG Glucose Oxyhemoglobin Sodium Potassium Chloride Carbon Dioxide BUN Creatinine Glucose POC Glucose 139 H 173 H 143 H Lactic Acid Calcium Phosphorus Magnesium AST ALT Lactate Dehydrogenase Total Bilirubin Direct Bilirubin CK-MB (CK-2) C-Reactive Protein NT-Pro-B Natriuret Pep Total Protein Albumin Arterial Blood Glucose Urine WBC (Auto) Urine Creatinine 02/11/20 02/11/20 02/12/20 13:43 14:11 00:15 WBC RBC Hgb Hct MCHC RDW MCV MCH Lymph % (Auto) Miller % (Auto) Miller # Eos # Lymph # (Auto) Miller # (Auto) Eos # (Auto) Seg Neutrophils % Seg Neuts % (Manual) Baso # (Auto) Lymphocytes % (Manual) Monocytes % (Manual) Eosinophils % (Manual) Basophils % (Manual) Seg Neutrophils # Seg Neutrophils # Man Lymphocytes # (Manual) Monocytes # (Manual) Eosinophils # (Manual) Nucleated RBC % Basophils # (Manual) PT INR APTT Heparin Anti-Xa Level ABG pH 7.502 H POC ABG pO2 77.7 L ABG pO2 ABG HCO3 ABG O2 Saturation ABG Base Excess POC ABG pCO2 ABG Hemoglobin 11.1 L ABG Oxyhemoglobin ABG Chloride 108.0 H ABG Glucose 151 H Oxyhemoglobin Sodium Potassium Chloride Carbon Dioxide BUN Creatinine Glucose POC Glucose 130 H 125 H Lactic Acid Calcium Phosphorus Magnesium AST ALT Lactate Dehydrogenase Total Bilirubin Direct Bilirubin CK-MB (CK-2) C-Reactive Protein NT-Pro-B Natriuret Pep Total Protein Albumin Arterial Blood Glucose 151 H Urine WBC (Auto) Urine Creatinine 02/12/20 02/12/20 02/12/20 04:56 04:56 17:42 WBC RBC Hgb 9.9 L Hct 31.8 L MCHC 31 L RDW 19.4 H MCV 79 L MCH 25 L Lymph % (Auto) Miller % (Auto) 10.3 H Miller # Eos # Lymph # (Auto) Miller # (Auto) 1.0 H Eos # (Auto) Seg Neutrophils % Seg Neuts % (Manual) Baso # (Auto) Lymphocytes % (Manual) Monocytes % (Manual) Eosinophils % (Manual) Basophils % (Manual) Seg Neutrophils # Seg Neutrophils # Man Lymphocytes # (Manual) Monocytes # (Manual) Eosinophils # (Manual) Nucleated RBC % Basophils # (Manual) PT INR APTT Heparin Anti-Xa Level ABG pH POC ABG pO2 ABG pO2 ABG HCO3 ABG O2 Saturation ABG Base Excess POC ABG pCO2 ABG Hemoglobin ABG Oxyhemoglobin ABG Chloride ABG Glucose Oxyhemoglobin Sodium 149 H Potassium Chloride 108.6 H Carbon Dioxide BUN 28 H Creatinine 0.7 L Glucose 108 H POC Glucose 113 H Lactic Acid Calcium Phosphorus Magnesium AST ALT Lactate Dehydrogenase Total Bilirubin Direct Bilirubin CK-MB (CK-2) C-Reactive Protein NT-Pro-B Natriuret Pep Total Protein Albumin Arterial Blood Glucose Urine WBC (Auto) Urine Creatinine 02/13/20 02/13/20 02/13/20 00:39 05:36 12:25 WBC RBC Hgb Hct MCHC RDW MCV MCH Lymph % (Auto) Miller % (Auto) Miller # Eos # Lymph # (Auto) Miller # (Auto) Eos # (Auto) Seg Neutrophils % Seg Neuts % (Manual) Baso # (Auto) Lymphocytes % (Manual) Monocytes % (Manual) Eosinophils % (Manual) Basophils % (Manual) Seg Neutrophils # Seg Neutrophils # Man Lymphocytes # (Manual) Monocytes # (Manual) Eosinophils # (Manual) Nucleated RBC % Basophils # (Manual) PT INR APTT Heparin Anti-Xa Level ABG pH POC ABG pO2 ABG pO2 ABG HCO3 ABG O2 Saturation ABG Base Excess POC ABG pCO2 ABG Hemoglobin ABG Oxyhemoglobin ABG Chloride ABG Glucose Oxyhemoglobin Sodium Potassium Chloride Carbon Dioxide BUN Creatinine Glucose POC Glucose 129 H 126 H 129 H Lactic Acid Calcium Phosphorus Magnesium AST ALT Lactate Dehydrogenase Total Bilirubin Direct Bilirubin CK-MB (CK-2) C-Reactive Protein NT-Pro-B Natriuret Pep Total Protein Albumin Arterial Blood Glucose Urine WBC (Auto) Urine Creatinine 02/13/20 02/14/20 02/14/20 17:59 00:15 05:41 WBC RBC Hgb Hct MCHC RDW MCV MCH Lymph % (Auto) Miller % (Auto) Miller # Eos # Lymph # (Auto) Miller # (Auto) Eos # (Auto) Seg Neutrophils % Seg Neuts % (Manual) Baso # (Auto) Lymphocytes % (Manual) Monocytes % (Manual) Eosinophils % (Manual) Basophils % (Manual) Seg Neutrophils # Seg Neutrophils # Man Lymphocytes # (Manual) Monocytes # (Manual) Eosinophils # (Manual) Nucleated RBC % Basophils # (Manual) PT INR APTT Heparin Anti-Xa Level ABG pH POC ABG pO2 ABG pO2 ABG HCO3 ABG O2 Saturation ABG Base Excess POC ABG pCO2 ABG Hemoglobin ABG Oxyhemoglobin ABG Chloride ABG Glucose Oxyhemoglobin Sodium Potassium Chloride Carbon Dioxide BUN Creatinine Glucose POC Glucose 153 H 130 H 130 H Lactic Acid Calcium Phosphorus Magnesium AST ALT Lactate Dehydrogenase Total Bilirubin Direct Bilirubin CK-MB (CK-2) C-Reactive Protein NT-Pro-B Natriuret Pep Total Protein Albumin Arterial Blood Glucose Urine WBC (Auto) Urine Creatinine 02/14/20 02/15/20 02/15/20 11:32 00:12 05:27 WBC RBC Hgb Hct MCHC RDW MCV MCH Lymph % (Auto) Miller % (Auto) Miller # Eos # Lymph # (Auto) Miller # (Auto) Eos # (Auto) Seg Neutrophils % Seg Neuts % (Manual) Baso # (Auto) Lymphocytes % (Manual) Monocytes % (Manual) Eosinophils % (Manual) Basophils % (Manual) Seg Neutrophils # Seg Neutrophils # Man Lymphocytes # (Manual) Monocytes # (Manual) Eosinophils # (Manual) Nucleated RBC % Basophils # (Manual) PT INR APTT Heparin Anti-Xa Level ABG pH POC ABG pO2 ABG pO2 ABG HCO3 ABG O2 Saturation ABG Base Excess POC ABG pCO2 ABG Hemoglobin ABG Oxyhemoglobin ABG Chloride ABG Glucose Oxyhemoglobin Sodium Potassium Chloride Carbon Dioxide BUN Creatinine Glucose POC Glucose 157 H 124 H 111 H Lactic Acid Calcium Phosphorus Magnesium AST ALT Lactate Dehydrogenase Total Bilirubin Direct Bilirubin CK-MB (CK-2) C-Reactive Protein NT-Pro-B Natriuret Pep Total Protein Albumin Arterial Blood Glucose Urine WBC (Auto) Urine Creatinine 02/15/20 02/15/20 02/15/20 06:59 06:59 11:14 WBC RBC Hgb 10.4 L Hct 33.7 L MCHC 31 L RDW 19.4 H MCV 80 L MCH 24 L Lymph % (Auto) Miller % (Auto) Miller # Eos # Lymph # (Auto) Miller # (Auto) Eos # (Auto) Seg Neutrophils % Seg Neuts % (Manual) Baso # (Auto) Lymphocytes % (Manual) Monocytes % (Manual) Eosinophils % (Manual) Basophils % (Manual) 2.0 H Seg Neutrophils # Seg Neutrophils # Man Lymphocytes # (Manual) Monocytes # (Manual) Eosinophils # (Manual) Nucleated RBC % 1.0 H Basophils # (Manual) 0.2 H PT INR APTT Heparin Anti-Xa Level ABG pH POC ABG pO2 ABG pO2 ABG HCO3 ABG O2 Saturation ABG Base Excess POC ABG pCO2 ABG Hemoglobin ABG Oxyhemoglobin ABG Chloride ABG Glucose Oxyhemoglobin Sodium 149 H Potassium Chloride 108.4 H Carbon Dioxide 31 H BUN 40 H Creatinine 0.7 L Glucose 150 H POC Glucose 128 H Lactic Acid Calcium Phosphorus Magnesium AST ALT Lactate Dehydrogenase Total Bilirubin Direct Bilirubin CK-MB (CK-2) C-Reactive Protein NT-Pro-B Natriuret Pep Total Protein Albumin Arterial Blood Glucose Urine WBC (Auto) Urine Creatinine 02/15/20 02/15/20 02/16/20 17:46 23:50 05:03 WBC RBC Hgb Hct MCHC RDW MCV MCH Lymph % (Auto) Miller % (Auto) Miller # Eos # Lymph # (Auto) Miller # (Auto) Eos # (Auto) Seg Neutrophils % Seg Neuts % (Manual) Baso # (Auto) Lymphocytes % (Manual) Monocytes % (Manual) Eosinophils % (Manual) Basophils % (Manual) Seg Neutrophils # Seg Neutrophils # Man Lymphocytes # (Manual) Monocytes # (Manual) Eosinophils # (Manual) Nucleated RBC % Basophils # (Manual) PT INR APTT Heparin Anti-Xa Level ABG pH POC ABG pO2 ABG pO2 ABG HCO3 ABG O2 Saturation ABG Base Excess POC ABG pCO2 ABG Hemoglobin ABG Oxyhemoglobin ABG Chloride ABG Glucose Oxyhemoglobin Sodium Potassium Chloride Carbon Dioxide BUN Creatinine Glucose POC Glucose 154 H 135 H 148 H Lactic Acid Calcium Phosphorus Magnesium AST ALT Lactate Dehydrogenase Total Bilirubin Direct Bilirubin CK-MB (CK-2) C-Reactive Protein NT-Pro-B Natriuret Pep Total Protein Albumin Arterial Blood Glucose Urine WBC (Auto) Urine Creatinine 02/16/20 02/16/20 02/16/20 07:53 11:28 17:52 WBC RBC Hgb Hct MCHC RDW MCV MCH Lymph % (Auto) Miller % (Auto) Miller # Eos # Lymph # (Auto) Miller # (Auto) Eos # (Auto) Seg Neutrophils % Seg Neuts % (Manual) Baso # (Auto) Lymphocytes % (Manual) Monocytes % (Manual) Eosinophils % (Manual) Basophils % (Manual) Seg Neutrophils # Seg Neutrophils # Man Lymphocytes # (Manual) Monocytes # (Manual) Eosinophils # (Manual) Nucleated RBC % Basophils # (Manual) PT INR APTT Heparin Anti-Xa Level ABG pH POC ABG pO2 ABG pO2 ABG HCO3 ABG O2 Saturation ABG Base Excess POC ABG pCO2 ABG Hemoglobin ABG Oxyhemoglobin ABG Chloride ABG Glucose Oxyhemoglobin Sodium Potassium Chloride 107.9 H Carbon Dioxide BUN 38 H Creatinine 0.6 L Glucose 151 H POC Glucose 123 H 152 H Lactic Acid Calcium Phosphorus Magnesium AST ALT Lactate Dehydrogenase Total Bilirubin Direct Bilirubin CK-MB (CK-2) C-Reactive Protein NT-Pro-B Natriuret Pep Total Protein Albumin Arterial Blood Glucose Urine WBC (Auto) Urine Creatinine 02/16/20 02/17/20 02/17/20 23:49 06:24 11:36 WBC RBC Hgb Hct MCHC RDW MCV MCH Lymph % (Auto) Miller % (Auto) Miller # Eos # Lymph # (Auto) Miller # (Auto) Eos # (Auto) Seg Neutrophils % Seg Neuts % (Manual) Baso # (Auto) Lymphocytes % (Manual) Monocytes % (Manual) Eosinophils % (Manual) Basophils % (Manual) Seg Neutrophils # Seg Neutrophils # Man Lymphocytes # (Manual) Monocytes # (Manual) Eosinophils # (Manual) Nucleated RBC % Basophils # (Manual) PT INR APTT Heparin Anti-Xa Level ABG pH POC ABG pO2 ABG pO2 ABG HCO3 ABG O2 Saturation ABG Base Excess POC ABG pCO2 ABG Hemoglobin ABG Oxyhemoglobin ABG Chloride ABG Glucose Oxyhemoglobin Sodium Potassium Chloride Carbon Dioxide BUN Creatinine Glucose POC Glucose 156 H 193 H 162 H Lactic Acid Calcium Phosphorus Magnesium AST ALT Lactate Dehydrogenase Total Bilirubin Direct Bilirubin CK-MB (CK-2) C-Reactive Protein NT-Pro-B Natriuret Pep Total Protein Albumin Arterial Blood Glucose Urine WBC (Auto) Urine Creatinine 02/17/20 02/17/20 02/18/20 17:55 23:28 05:11 WBC RBC Hgb Hct MCHC RDW MCV MCH Lymph % (Auto) Miller % (Auto) Miller # Eos # Lymph # (Auto) Miller # (Auto) Eos # (Auto) Seg Neutrophils % Seg Neuts % (Manual) Baso # (Auto) Lymphocytes % (Manual) Monocytes % (Manual) Eosinophils % (Manual) Basophils % (Manual) Seg Neutrophils # Seg Neutrophils # Man Lymphocytes # (Manual) Monocytes # (Manual) Eosinophils # (Manual) Nucleated RBC % Basophils # (Manual) PT INR APTT Heparin Anti-Xa Level ABG pH POC ABG pO2 ABG pO2 ABG HCO3 ABG O2 Saturation ABG Base Excess POC ABG pCO2 ABG Hemoglobin ABG Oxyhemoglobin ABG Chloride ABG Glucose Oxyhemoglobin Sodium Potassium Chloride Carbon Dioxide BUN Creatinine Glucose POC Glucose 165 H 146 H 122 H Lactic Acid Calcium Phosphorus Magnesium AST ALT Lactate Dehydrogenase Total Bilirubin Direct Bilirubin CK-MB (CK-2) C-Reactive Protein NT-Pro-B Natriuret Pep Total Protein Albumin Arterial Blood Glucose Urine WBC (Auto) Urine Creatinine 02/18/20 02/18/20 02/19/20 12:24 17:29 00:01 WBC RBC Hgb Hct MCHC RDW MCV MCH Lymph % (Auto) Miller % (Auto) Miller # Eos # Lymph # (Auto) Miller # (Auto) Eos # (Auto) Seg Neutrophils % Seg Neuts % (Manual) Baso # (Auto) Lymphocytes % (Manual) Monocytes % (Manual) Eosinophils % (Manual) Basophils % (Manual) Seg Neutrophils # Seg Neutrophils # Man Lymphocytes # (Manual) Monocytes # (Manual) Eosinophils # (Manual) Nucleated RBC % Basophils # (Manual) PT INR APTT Heparin Anti-Xa Level ABG pH POC ABG pO2 ABG pO2 ABG HCO3 ABG O2 Saturation ABG Base Excess POC ABG pCO2 ABG Hemoglobin ABG Oxyhemoglobin ABG Chloride ABG Glucose Oxyhemoglobin Sodium Potassium Chloride Carbon Dioxide BUN Creatinine Glucose POC Glucose 162 H 136 H 145 H Lactic Acid Calcium Phosphorus Magnesium AST ALT Lactate Dehydrogenase Total Bilirubin Direct Bilirubin CK-MB (CK-2) C-Reactive Protein NT-Pro-B Natriuret Pep Total Protein Albumin Arterial Blood Glucose Urine WBC (Auto) Urine Creatinine 02/19/20 02/19/20 02/19/20 05:53 11:44 17:32 WBC RBC Hgb Hct MCHC RDW MCV MCH Lymph % (Auto) Miller % (Auto) Miller # Eos # Lymph # (Auto) Miller # (Auto) Eos # (Auto) Seg Neutrophils % Seg Neuts % (Manual) Baso # (Auto) Lymphocytes % (Manual) Monocytes % (Manual) Eosinophils % (Manual) Basophils % (Manual) Seg Neutrophils # Seg Neutrophils # Man Lymphocytes # (Manual) Monocytes # (Manual) Eosinophils # (Manual) Nucleated RBC % Basophils # (Manual) PT INR APTT Heparin Anti-Xa Level ABG pH POC ABG pO2 ABG pO2 ABG HCO3 ABG O2 Saturation ABG Base Excess POC ABG pCO2 ABG Hemoglobin ABG Oxyhemoglobin ABG Chloride ABG Glucose Oxyhemoglobin Sodium Potassium Chloride Carbon Dioxide BUN Creatinine Glucose POC Glucose 116 H 120 H 154 H Lactic Acid Calcium Phosphorus Magnesium AST ALT Lactate Dehydrogenase Total Bilirubin Direct Bilirubin CK-MB (CK-2) C-Reactive Protein NT-Pro-B Natriuret Pep Total Protein Albumin Arterial Blood Glucose Urine WBC (Auto) Urine Creatinine 02/19/20 02/20/20 02/20/20 23:43 00:24 00:24 WBC RBC Hgb 9.4 L Hct 30.0 L MCHC 31 L RDW 20.4 H MCV 79 L MCH 25 L Lymph % (Auto) Miller % (Auto) 8.5 H Miller # Eos # Lymph # (Auto) Miller # (Auto) Eos # (Auto) Seg Neutrophils % Seg Neuts % (Manual) Baso # (Auto) Lymphocytes % (Manual) Monocytes % (Manual) Eosinophils % (Manual) Basophils % (Manual) Seg Neutrophils # Seg Neutrophils # Man Lymphocytes # (Manual) Monocytes # (Manual) Eosinophils # (Manual) Nucleated RBC % Basophils # (Manual) PT INR APTT Heparin Anti-Xa Level ABG pH POC ABG pO2 ABG pO2 ABG HCO3 ABG O2 Saturation ABG Base Excess POC ABG pCO2 ABG Hemoglobin ABG Oxyhemoglobin ABG Chloride ABG Glucose Oxyhemoglobin Sodium 147 H Potassium 3.4 L Chloride Carbon Dioxide 31 H BUN 34 H Creatinine 0.5 L Glucose 135 H POC Glucose 122 H Lactic Acid Calcium Phosphorus Magnesium AST ALT Lactate Dehydrogenase Total Bilirubin Direct Bilirubin CK-MB (CK-2) C-Reactive Protein NT-Pro-B Natriuret Pep Total Protein Albumin Arterial Blood Glucose Urine WBC (Auto) Urine Creatinine 02/20/20 02/20/20 02/20/20 06:07 06:45 12:03 WBC RBC Hgb Hct MCHC RDW MCV MCH Lymph % (Auto) Miller % (Auto) Miller # Eos # Lymph # (Auto) Miller # (Auto) Eos # (Auto) Seg Neutrophils % Seg Neuts % (Manual) Baso # (Auto) Lymphocytes % (Manual) Monocytes % (Manual) Eosinophils % (Manual) Basophils % (Manual) Seg Neutrophils # Seg Neutrophils # Man Lymphocytes # (Manual) Monocytes # (Manual) Eosinophils # (Manual) Nucleated RBC % Basophils # (Manual) PT INR APTT Heparin Anti-Xa Level ABG pH 7.461 H POC ABG pO2 ABG pO2 ABG HCO3 33.3 H ABG O2 Saturation ABG Base Excess 8.4 H POC ABG pCO2 ABG Hemoglobin 10.0 L ABG Oxyhemoglobin ABG Chloride ABG Glucose Oxyhemoglobin 94.1 L Sodium Potassium Chloride Carbon Dioxide BUN Creatinine Glucose POC Glucose 109 H 128 H Lactic Acid Calcium Phosphorus Magnesium AST ALT Lactate Dehydrogenase Total Bilirubin Direct Bilirubin CK-MB (CK-2) C-Reactive Protein NT-Pro-B Natriuret Pep Total Protein Albumin Arterial Blood Glucose Urine WBC (Auto) Urine Creatinine 02/20/20 02/20/20 02/21/20 18:02 23:55 05:42 WBC RBC Hgb Hct MCHC RDW MCV MCH Lymph % (Auto) Miller % (Auto) Miller # Eos # Lymph # (Auto) Miller # (Auto) Eos # (Auto) Seg Neutrophils % Seg Neuts % (Manual) Baso # (Auto) Lymphocytes % (Manual) Monocytes % (Manual) Eosinophils % (Manual) Basophils % (Manual) Seg Neutrophils # Seg Neutrophils # Man Lymphocytes # (Manual) Monocytes # (Manual) Eosinophils # (Manual) Nucleated RBC % Basophils # (Manual) PT INR APTT Heparin Anti-Xa Level ABG pH POC ABG pO2 ABG pO2 ABG HCO3 ABG O2 Saturation ABG Base Excess POC ABG pCO2 ABG Hemoglobin ABG Oxyhemoglobin ABG Chloride ABG Glucose Oxyhemoglobin Sodium Potassium Chloride Carbon Dioxide BUN Creatinine Glucose POC Glucose 118 H 125 H 127 H Lactic Acid Calcium Phosphorus Magnesium AST ALT Lactate Dehydrogenase Total Bilirubin Direct Bilirubin CK-MB (CK-2) C-Reactive Protein NT-Pro-B Natriuret Pep Total Protein Albumin Arterial Blood Glucose Urine WBC (Auto) Urine Creatinine 02/21/20 02/21/20 02/21/20 12:10 17:35 23:40 WBC RBC Hgb Hct MCHC RDW MCV MCH Lymph % (Auto) Miller % (Auto) Miller # Eos # Lymph # (Auto) Miller # (Auto) Eos # (Auto) Seg Neutrophils % Seg Neuts % (Manual) Baso # (Auto) Lymphocytes % (Manual) Monocytes % (Manual) Eosinophils % (Manual) Basophils % (Manual) Seg Neutrophils # Seg Neutrophils # Man Lymphocytes # (Manual) Monocytes # (Manual) Eosinophils # (Manual) Nucleated RBC % Basophils # (Manual) PT INR APTT Heparin Anti-Xa Level ABG pH POC ABG pO2 ABG pO2 ABG HCO3 ABG O2 Saturation ABG Base Excess POC ABG pCO2 ABG Hemoglobin ABG Oxyhemoglobin ABG Chloride ABG Glucose Oxyhemoglobin Sodium Potassium Chloride Carbon Dioxide BUN Creatinine Glucose POC Glucose 128 H 113 H 125 H Lactic Acid Calcium Phosphorus Magnesium AST ALT Lactate Dehydrogenase Total Bilirubin Direct Bilirubin CK-MB (CK-2) C-Reactive Protein NT-Pro-B Natriuret Pep Total Protein Albumin Arterial Blood Glucose Urine WBC (Auto) Urine Creatinine 02/22/20 02/22/20 02/22/20 05:57 08:06 08:06 WBC RBC Hgb 10.8 L Hct 35.2 L MCHC 31 L RDW 21.8 H MCV 80 L MCH 25 L Lymph % (Auto) Miller % (Auto) Miller # Eos # Lymph # (Auto) Miller # (Auto) Eos # (Auto) Seg Neutrophils % 71.5 H Seg Neuts % (Manual) Baso # (Auto) Lymphocytes % (Manual) Monocytes % (Manual) Eosinophils % (Manual) Basophils % (Manual) Seg Neutrophils # Seg Neutrophils # Man Lymphocytes # (Manual) Monocytes # (Manual) Eosinophils # (Manual) Nucleated RBC % Basophils # (Manual) PT INR APTT Heparin Anti-Xa Level ABG pH POC ABG pO2 ABG pO2 ABG HCO3 ABG O2 Saturation ABG Base Excess POC ABG pCO2 ABG Hemoglobin ABG Oxyhemoglobin ABG Chloride ABG Glucose Oxyhemoglobin Sodium 146 H Potassium Chloride Carbon Dioxide 34 H BUN 21 H Creatinine 0.4 L Glucose 149 H POC Glucose 138 H Lactic Acid Calcium Phosphorus Magnesium AST ALT Lactate Dehydrogenase Total Bilirubin Direct Bilirubin CK-MB (CK-2) C-Reactive Protein NT-Pro-B Natriuret Pep Total Protein Albumin Arterial Blood Glucose Urine WBC (Auto) Urine Creatinine 02/22/20 02/22/20 02/22/20 11:47 17:11 23:25 WBC RBC Hgb Hct MCHC RDW MCV MCH Lymph % (Auto) Miller % (Auto) Miller # Eos # Lymph # (Auto) Miller # (Auto) Eos # (Auto) Seg Neutrophils % Seg Neuts % (Manual) Baso # (Auto) Lymphocytes % (Manual) Monocytes % (Manual) Eosinophils % (Manual) Basophils % (Manual) Seg Neutrophils # Seg Neutrophils # Man Lymphocytes # (Manual) Monocytes # (Manual) Eosinophils # (Manual) Nucleated RBC % Basophils # (Manual) PT INR APTT Heparin Anti-Xa Level ABG pH POC ABG pO2 ABG pO2 ABG HCO3 ABG O2 Saturation ABG Base Excess POC ABG pCO2 ABG Hemoglobin ABG Oxyhemoglobin ABG Chloride ABG Glucose Oxyhemoglobin Sodium Potassium Chloride Carbon Dioxide BUN Creatinine Glucose POC Glucose 149 H 144 H 142 H Lactic Acid Calcium Phosphorus Magnesium AST ALT Lactate Dehydrogenase Total Bilirubin Direct Bilirubin CK-MB (CK-2) C-Reactive Protein NT-Pro-B Natriuret Pep Total Protein Albumin Arterial Blood Glucose Urine WBC (Auto) Urine Creatinine 02/23/20 02/23/20 02/23/20 05:22 11:37 18:14 WBC RBC Hgb Hct MCHC RDW MCV MCH Lymph % (Auto) Miller % (Auto) Miller # Eos # Lymph # (Auto) Miller # (Auto) Eos # (Auto) Seg Neutrophils % Seg Neuts % (Manual) Baso # (Auto) Lymphocytes % (Manual) Monocytes % (Manual) Eosinophils % (Manual) Basophils % (Manual) Seg Neutrophils # Seg Neutrophils # Man Lymphocytes # (Manual) Monocytes # (Manual) Eosinophils # (Manual) Nucleated RBC % Basophils # (Manual) PT INR APTT Heparin Anti-Xa Level ABG pH POC ABG pO2 ABG pO2 ABG HCO3 ABG O2 Saturation ABG Base Excess POC ABG pCO2 ABG Hemoglobin ABG Oxyhemoglobin ABG Chloride ABG Glucose Oxyhemoglobin Sodium Potassium Chloride Carbon Dioxide BUN Creatinine Glucose POC Glucose 144 H 113 H 127 H Lactic Acid Calcium Phosphorus Magnesium AST ALT Lactate Dehydrogenase Total Bilirubin Direct Bilirubin CK-MB (CK-2) C-Reactive Protein NT-Pro-B Natriuret Pep Total Protein Albumin Arterial Blood Glucose Urine WBC (Auto) Urine Creatinine 02/23/20 02/24/20 02/24/20 23:45 05:50 11:24 WBC RBC Hgb Hct MCHC RDW MCV MCH Lymph % (Auto) Miller % (Auto) Miller # Eos # Lymph # (Auto) Miller # (Auto) Eos # (Auto) Seg Neutrophils % Seg Neuts % (Manual) Baso # (Auto) Lymphocytes % (Manual) Monocytes % (Manual) Eosinophils % (Manual) Basophils % (Manual) Seg Neutrophils # Seg Neutrophils # Man Lymphocytes # (Manual) Monocytes # (Manual) Eosinophils # (Manual) Nucleated RBC % Basophils # (Manual) PT INR APTT Heparin Anti-Xa Level ABG pH POC ABG pO2 ABG pO2 ABG HCO3 ABG O2 Saturation ABG Base Excess POC ABG pCO2 ABG Hemoglobin ABG Oxyhemoglobin ABG Chloride ABG Glucose Oxyhemoglobin Sodium Potassium Chloride Carbon Dioxide BUN Creatinine Glucose POC Glucose 123 H 117 H 126 H Lactic Acid Calcium Phosphorus Magnesium AST ALT Lactate Dehydrogenase Total Bilirubin Direct Bilirubin CK-MB (CK-2) C-Reactive Protein NT-Pro-B Natriuret Pep Total Protein Albumin Arterial Blood Glucose Urine WBC (Auto) Urine Creatinine 02/24/20 02/24/20 02/25/20 18:35 23:27 05:20 WBC RBC Hgb Hct MCHC RDW MCV MCH Lymph % (Auto) Miller % (Auto) Miller # Eos # Lymph # (Auto) Miller # (Auto) Eos # (Auto) Seg Neutrophils % Seg Neuts % (Manual) Baso # (Auto) Lymphocytes % (Manual) Monocytes % (Manual) Eosinophils % (Manual) Basophils % (Manual) Seg Neutrophils # Seg Neutrophils # Man Lymphocytes # (Manual) Monocytes # (Manual) Eosinophils # (Manual) Nucleated RBC % Basophils # (Manual) PT INR APTT Heparin Anti-Xa Level ABG pH POC ABG pO2 ABG pO2 ABG HCO3 ABG O2 Saturation ABG Base Excess POC ABG pCO2 ABG Hemoglobin ABG Oxyhemoglobin ABG Chloride ABG Glucose Oxyhemoglobin Sodium Potassium Chloride Carbon Dioxide BUN Creatinine Glucose POC Glucose 121 H 127 H 133 H Lactic Acid Calcium Phosphorus Magnesium AST ALT Lactate Dehydrogenase Total Bilirubin Direct Bilirubin CK-MB (CK-2) C-Reactive Protein NT-Pro-B Natriuret Pep Total Protein Albumin Arterial Blood Glucose Urine WBC (Auto) Urine Creatinine 02/25/20 02/25/20 02/25/20 12:08 17:26 23:33 WBC RBC Hgb Hct MCHC RDW MCV MCH Lymph % (Auto) Miller % (Auto) Miller # Eos # Lymph # (Auto) Miller # (Auto) Eos # (Auto) Seg Neutrophils % Seg Neuts % (Manual) Baso # (Auto) Lymphocytes % (Manual) Monocytes % (Manual) Eosinophils % (Manual) Basophils % (Manual) Seg Neutrophils # Seg Neutrophils # Man Lymphocytes # (Manual) Monocytes # (Manual) Eosinophils # (Manual) Nucleated RBC % Basophils # (Manual) PT INR APTT Heparin Anti-Xa Level ABG pH POC ABG pO2 ABG pO2 ABG HCO3 ABG O2 Saturation ABG Base Excess POC ABG pCO2 ABG Hemoglobin ABG Oxyhemoglobin ABG Chloride ABG Glucose Oxyhemoglobin Sodium Potassium Chloride Carbon Dioxide BUN Creatinine Glucose POC Glucose 109 H 120 H 120 H Lactic Acid Calcium Phosphorus Magnesium AST ALT Lactate Dehydrogenase Total Bilirubin Direct Bilirubin CK-MB (CK-2) C-Reactive Protein NT-Pro-B Natriuret Pep Total Protein Albumin Arterial Blood Glucose Urine WBC (Auto) Urine Creatinine 02/26/20 02/26/20 02/27/20 05:33 07:50 12:13 WBC RBC Hgb Hct MCHC RDW MCV MCH Lymph % (Auto) Miller % (Auto) Miller # Eos # Lymph # (Auto) Miller # (Auto) Eos # (Auto) Seg Neutrophils % Seg Neuts % (Manual) Baso # (Auto) Lymphocytes % (Manual) Monocytes % (Manual) Eosinophils % (Manual) Basophils % (Manual) Seg Neutrophils # Seg Neutrophils # Man Lymphocytes # (Manual) Monocytes # (Manual) Eosinophils # (Manual) Nucleated RBC % Basophils # (Manual) PT INR APTT Heparin Anti-Xa Level ABG pH POC ABG pO2 ABG pO2 ABG HCO3 ABG O2 Saturation ABG Base Excess POC ABG pCO2 ABG Hemoglobin ABG Oxyhemoglobin ABG Chloride ABG Glucose Oxyhemoglobin Sodium Potassium Chloride Carbon Dioxide BUN Creatinine Glucose POC Glucose 106 H 130 H Lactic Acid Calcium Phosphorus Magnesium AST ALT Lactate Dehydrogenase Total Bilirubin Direct Bilirubin CK-MB (CK-2) C-Reactive Protein NT-Pro-B Natriuret Pep Total Protein Albumin Arterial Blood Glucose Urine WBC (Auto) > 182.0 H Urine Creatinine 02/27/20 02/27/20 02/28/20 18:20 23:33 05:01 WBC RBC Hgb Hct MCHC RDW MCV MCH Lymph % (Auto) Miller % (Auto) Miller # Eos # Lymph # (Auto) Miller # (Auto) Eos # (Auto) Seg Neutrophils % Seg Neuts % (Manual) Baso # (Auto) Lymphocytes % (Manual) Monocytes % (Manual) Eosinophils % (Manual) Basophils % (Manual) Seg Neutrophils # Seg Neutrophils # Man Lymphocytes # (Manual) Monocytes # (Manual) Eosinophils # (Manual) Nucleated RBC % Basophils # (Manual) PT INR APTT Heparin Anti-Xa Level ABG pH POC ABG pO2 ABG pO2 ABG HCO3 ABG O2 Saturation ABG Base Excess POC ABG pCO2 ABG Hemoglobin ABG Oxyhemoglobin ABG Chloride ABG Glucose Oxyhemoglobin Sodium Potassium Chloride Carbon Dioxide BUN Creatinine Glucose POC Glucose 109 H 124 H 134 H Lactic Acid Calcium Phosphorus Magnesium AST ALT Lactate Dehydrogenase Total Bilirubin Direct Bilirubin CK-MB (CK-2) C-Reactive Protein NT-Pro-B Natriuret Pep Total Protein Albumin Arterial Blood Glucose Urine WBC (Auto) Urine Creatinine 02/28/20 02/28/20 02/28/20 11:54 18:16 23:03 WBC RBC Hgb Hct MCHC RDW MCV MCH Lymph % (Auto) Miller % (Auto) Miller # Eos # Lymph # (Auto) Miller # (Auto) Eos # (Auto) Seg Neutrophils % Seg Neuts % (Manual) Baso # (Auto) Lymphocytes % (Manual) Monocytes % (Manual) Eosinophils % (Manual) Basophils % (Manual) Seg Neutrophils # Seg Neutrophils # Man Lymphocytes # (Manual) Monocytes # (Manual) Eosinophils # (Manual) Nucleated RBC % Basophils # (Manual) PT INR APTT Heparin Anti-Xa Level ABG pH POC ABG pO2 ABG pO2 ABG HCO3 ABG O2 Saturation ABG Base Excess POC ABG pCO2 ABG Hemoglobin ABG Oxyhemoglobin ABG Chloride ABG Glucose Oxyhemoglobin Sodium Potassium Chloride Carbon Dioxide BUN Creatinine Glucose POC Glucose 133 H 134 H 146 H Lactic Acid Calcium Phosphorus Magnesium AST ALT Lactate Dehydrogenase Total Bilirubin Direct Bilirubin CK-MB (CK-2) C-Reactive Protein NT-Pro-B Natriuret Pep Total Protein Albumin Arterial Blood Glucose Urine WBC (Auto) Urine Creatinine 02/29/20 02/29/20 02/29/20 05:24 11:34 17:12 WBC RBC Hgb Hct MCHC RDW MCV MCH Lymph % (Auto) Miller % (Auto) Miller # Eos # Lymph # (Auto) Miller # (Auto) Eos # (Auto) Seg Neutrophils % Seg Neuts % (Manual) Baso # (Auto) Lymphocytes % (Manual) Monocytes % (Manual) Eosinophils % (Manual) Basophils % (Manual) Seg Neutrophils # Seg Neutrophils # Man Lymphocytes # (Manual) Monocytes # (Manual) Eosinophils # (Manual) Nucleated RBC % Basophils # (Manual) PT INR APTT Heparin Anti-Xa Level ABG pH POC ABG pO2 ABG pO2 ABG HCO3 ABG O2 Saturation ABG Base Excess POC ABG pCO2 ABG Hemoglobin ABG Oxyhemoglobin ABG Chloride ABG Glucose Oxyhemoglobin Sodium Potassium Chloride Carbon Dioxide BUN Creatinine Glucose POC Glucose 139 H 141 H 157 H Lactic Acid Calcium Phosphorus Magnesium AST ALT Lactate Dehydrogenase Total Bilirubin Direct Bilirubin CK-MB (CK-2) C-Reactive Protein NT-Pro-B Natriuret Pep Total Protein Albumin Arterial Blood Glucose Urine WBC (Auto) Urine Creatinine 02/29/20 03/01/20 03/01/20 23:35 06:00 11:53 WBC RBC Hgb Hct MCHC RDW MCV MCH Lymph % (Auto) Miller % (Auto) Miller # Eos # Lymph # (Auto) Miller # (Auto) Eos # (Auto) Seg Neutrophils % Seg Neuts % (Manual) Baso # (Auto) Lymphocytes % (Manual) Monocytes % (Manual) Eosinophils % (Manual) Basophils % (Manual) Seg Neutrophils # Seg Neutrophils # Man Lymphocytes # (Manual) Monocytes # (Manual) Eosinophils # (Manual) Nucleated RBC % Basophils # (Manual) PT INR APTT Heparin Anti-Xa Level ABG pH POC ABG pO2 ABG pO2 ABG HCO3 ABG O2 Saturation ABG Base Excess POC ABG pCO2 ABG Hemoglobin ABG Oxyhemoglobin ABG Chloride ABG Glucose Oxyhemoglobin Sodium Potassium Chloride Carbon Dioxide BUN Creatinine Glucose POC Glucose 120 H 132 H 136 H Lactic Acid Calcium Phosphorus Magnesium AST ALT Lactate Dehydrogenase Total Bilirubin Direct Bilirubin CK-MB (CK-2) C-Reactive Protein NT-Pro-B Natriuret Pep Total Protein Albumin Arterial Blood Glucose Urine WBC (Auto) Urine Creatinine 03/01/20 03/01/20 03/02/20 17:36 23:16 05:12 WBC RBC Hgb Hct MCHC RDW MCV MCH Lymph % (Auto) Miller % (Auto) Miller # Eos # Lymph # (Auto) Miller # (Auto) Eos # (Auto) Seg Neutrophils % Seg Neuts % (Manual) Baso # (Auto) Lymphocytes % (Manual) Monocytes % (Manual) Eosinophils % (Manual) Basophils % (Manual) Seg Neutrophils # Seg Neutrophils # Man Lymphocytes # (Manual) Monocytes # (Manual) Eosinophils # (Manual) Nucleated RBC % Basophils # (Manual) PT INR APTT Heparin Anti-Xa Level ABG pH POC ABG pO2 ABG pO2 ABG HCO3 ABG O2 Saturation ABG Base Excess POC ABG pCO2 ABG Hemoglobin ABG Oxyhemoglobin ABG Chloride ABG Glucose Oxyhemoglobin Sodium Potassium Chloride Carbon Dioxide BUN Creatinine Glucose POC Glucose 171 H 164 H 176 H Lactic Acid Calcium Phosphorus Magnesium AST ALT Lactate Dehydrogenase Total Bilirubin Direct Bilirubin CK-MB (CK-2) C-Reactive Protein NT-Pro-B Natriuret Pep Total Protein Albumin Arterial Blood Glucose Urine WBC (Auto) Urine Creatinine 03/02/20 03/02/20 03/03/20 11:42 18:01 00:06 WBC RBC Hgb Hct MCHC RDW MCV MCH Lymph % (Auto) Miller % (Auto) Miller # Eos # Lymph # (Auto) Miller # (Auto) Eos # (Auto) Seg Neutrophils % Seg Neuts % (Manual) Baso # (Auto) Lymphocytes % (Manual) Monocytes % (Manual) Eosinophils % (Manual) Basophils % (Manual) Seg Neutrophils # Seg Neutrophils # Man Lymphocytes # (Manual) Monocytes # (Manual) Eosinophils # (Manual) Nucleated RBC % Basophils # (Manual) PT INR APTT Heparin Anti-Xa Level ABG pH POC ABG pO2 ABG pO2 ABG HCO3 ABG O2 Saturation ABG Base Excess POC ABG pCO2 ABG Hemoglobin ABG Oxyhemoglobin ABG Chloride ABG Glucose Oxyhemoglobin Sodium Potassium Chloride Carbon Dioxide BUN Creatinine Glucose POC Glucose 150 H 156 H 156 H Lactic Acid Calcium Phosphorus Magnesium AST ALT Lactate Dehydrogenase Total Bilirubin Direct Bilirubin CK-MB (CK-2) C-Reactive Protein NT-Pro-B Natriuret Pep Total Protein Albumin Arterial Blood Glucose Urine WBC (Auto) Urine Creatinine 03/03/20 03/03/20 03/03/20 03:31 11:20 16:55 WBC RBC Hgb Hct MCHC RDW MCV MCH Lymph % (Auto) Miller % (Auto) Miller # Eos # Lymph # (Auto) Miller # (Auto) Eos # (Auto) Seg Neutrophils % Seg Neuts % (Manual) Baso # (Auto) Lymphocytes % (Manual) Monocytes % (Manual) Eosinophils % (Manual) Basophils % (Manual) Seg Neutrophils # Seg Neutrophils # Man Lymphocytes # (Manual) Monocytes # (Manual) Eosinophils # (Manual) Nucleated RBC % Basophils # (Manual) PT INR APTT Heparin Anti-Xa Level ABG pH POC ABG pO2 ABG pO2 ABG HCO3 ABG O2 Saturation ABG Base Excess POC ABG pCO2 ABG Hemoglobin ABG Oxyhemoglobin ABG Chloride ABG Glucose Oxyhemoglobin Sodium Potassium Chloride Carbon Dioxide BUN Creatinine Glucose POC Glucose 164 H 125 H 211 H Lactic Acid Calcium Phosphorus Magnesium AST ALT Lactate Dehydrogenase Total Bilirubin Direct Bilirubin CK-MB (CK-2) C-Reactive Protein NT-Pro-B Natriuret Pep Total Protein Albumin Arterial Blood Glucose Urine WBC (Auto) Urine Creatinine 03/04/20 03/04/20 03/04/20 00:29 05:20 12:09 WBC RBC Hgb Hct MCHC RDW MCV MCH Lymph % (Auto) Miller % (Auto) Miller # Eos # Lymph # (Auto) Miller # (Auto) Eos # (Auto) Seg Neutrophils % Seg Neuts % (Manual) Baso # (Auto) Lymphocytes % (Manual) Monocytes % (Manual) Eosinophils % (Manual) Basophils % (Manual) Seg Neutrophils # Seg Neutrophils # Man Lymphocytes # (Manual) Monocytes # (Manual) Eosinophils # (Manual) Nucleated RBC % Basophils # (Manual) PT INR APTT Heparin Anti-Xa Level ABG pH POC ABG pO2 ABG pO2 ABG HCO3 ABG O2 Saturation ABG Base Excess POC ABG pCO2 ABG Hemoglobin ABG Oxyhemoglobin ABG Chloride ABG Glucose Oxyhemoglobin Sodium Potassium Chloride Carbon Dioxide BUN Creatinine Glucose POC Glucose 169 H 154 H 197 H Lactic Acid Calcium Phosphorus Magnesium AST ALT Lactate Dehydrogenase Total Bilirubin Direct Bilirubin CK-MB (CK-2) C-Reactive Protein NT-Pro-B Natriuret Pep Total Protein Albumin Arterial Blood Glucose Urine WBC (Auto) Urine Creatinine 03/04/20 03/04/20 03/04/20 18:00 20:38 20:38 WBC RBC Hgb 10.1 L Hct 32.7 L MCHC 31 L RDW 24.7 H MCV 79 L MCH 24 L Lymph % (Auto) Miller % (Auto) 8.9 H Miller # Eos # Lymph # (Auto) Miller # (Auto) Eos # (Auto) Seg Neutrophils % Seg Neuts % (Manual) Baso # (Auto) Lymphocytes % (Manual) Monocytes % (Manual) Eosinophils % (Manual) Basophils % (Manual) Seg Neutrophils # Seg Neutrophils # Man Lymphocytes # (Manual) Monocytes # (Manual) Eosinophils # (Manual) Nucleated RBC % Basophils # (Manual) PT INR APTT Heparin Anti-Xa Level ABG pH POC ABG pO2 ABG pO2 ABG HCO3 ABG O2 Saturation ABG Base Excess POC ABG pCO2 ABG Hemoglobin ABG Oxyhemoglobin ABG Chloride ABG Glucose Oxyhemoglobin Sodium 136 L Potassium Chloride Carbon Dioxide BUN 25 H Creatinine 0.5 L Glucose 148 H POC Glucose 146 H Lactic Acid Calcium Phosphorus Magnesium AST ALT Lactate Dehydrogenase Total Bilirubin Direct Bilirubin CK-MB (CK-2) C-Reactive Protein NT-Pro-B Natriuret Pep Total Protein Albumin Arterial Blood Glucose Urine WBC (Auto) Urine Creatinine 03/04/20 03/05/20 03/05/20 23:17 05:44 11:32 WBC RBC Hgb Hct MCHC RDW MCV MCH Lymph % (Auto) Miller % (Auto) Miller # Eos # Lymph # (Auto) Miller # (Auto) Eos # (Auto) Seg Neutrophils % Seg Neuts % (Manual) Baso # (Auto) Lymphocytes % (Manual) Monocytes % (Manual) Eosinophils % (Manual) Basophils % (Manual) Seg Neutrophils # Seg Neutrophils # Man Lymphocytes # (Manual) Monocytes # (Manual) Eosinophils # (Manual) Nucleated RBC % Basophils # (Manual) PT INR APTT Heparin Anti-Xa Level ABG pH POC ABG pO2 ABG pO2 ABG HCO3 ABG O2 Saturation ABG Base Excess POC ABG pCO2 ABG Hemoglobin ABG Oxyhemoglobin ABG Chloride ABG Glucose Oxyhemoglobin Sodium Potassium Chloride Carbon Dioxide BUN Creatinine Glucose POC Glucose 139 H 155 H 124 H Lactic Acid Calcium Phosphorus Magnesium AST ALT Lactate Dehydrogenase Total Bilirubin Direct Bilirubin CK-MB (CK-2) C-Reactive Protein NT-Pro-B Natriuret Pep Total Protein Albumin Arterial Blood Glucose Urine WBC (Auto) Urine Creatinine 03/05/20 03/05/20 03/06/20 17:45 23:18 12:16 WBC RBC Hgb Hct MCHC RDW MCV MCH Lymph % (Auto) Miller % (Auto) Miller # Eos # Lymph # (Auto) Miller # (Auto) Eos # (Auto) Seg Neutrophils % Seg Neuts % (Manual) Baso # (Auto) Lymphocytes % (Manual) Monocytes % (Manual) Eosinophils % (Manual) Basophils % (Manual) Seg Neutrophils # Seg Neutrophils # Man Lymphocytes # (Manual) Monocytes # (Manual) Eosinophils # (Manual) Nucleated RBC % Basophils # (Manual) PT INR APTT Heparin Anti-Xa Level ABG pH POC ABG pO2 ABG pO2 ABG HCO3 ABG O2 Saturation ABG Base Excess POC ABG pCO2 ABG Hemoglobin ABG Oxyhemoglobin ABG Chloride ABG Glucose Oxyhemoglobin Sodium Potassium Chloride Carbon Dioxide BUN Creatinine Glucose POC Glucose 171 H 114 H 155 H Lactic Acid Calcium Phosphorus Magnesium AST ALT Lactate Dehydrogenase Total Bilirubin Direct Bilirubin CK-MB (CK-2) C-Reactive Protein NT-Pro-B Natriuret Pep Total Protein Albumin Arterial Blood Glucose Urine WBC (Auto) Urine Creatinine 03/06/20 03/06/20 03/07/20 17:27 23:48 06:02 WBC RBC Hgb Hct MCHC RDW MCV MCH Lymph % (Auto) Miller % (Auto) Miller # Eos # Lymph # (Auto) Miller # (Auto) Eos # (Auto) Seg Neutrophils % Seg Neuts % (Manual) Baso # (Auto) Lymphocytes % (Manual) Monocytes % (Manual) Eosinophils % (Manual) Basophils % (Manual) Seg Neutrophils # Seg Neutrophils # Man Lymphocytes # (Manual) Monocytes # (Manual) Eosinophils # (Manual) Nucleated RBC % Basophils # (Manual) PT INR APTT Heparin Anti-Xa Level ABG pH POC ABG pO2 ABG pO2 ABG HCO3 ABG O2 Saturation ABG Base Excess POC ABG pCO2 ABG Hemoglobin ABG Oxyhemoglobin ABG Chloride ABG Glucose Oxyhemoglobin Sodium Potassium Chloride Carbon Dioxide BUN Creatinine Glucose POC Glucose 116 H 142 H 161 H Lactic Acid Calcium Phosphorus Magnesium AST ALT Lactate Dehydrogenase Total Bilirubin Direct Bilirubin CK-MB (CK-2) C-Reactive Protein NT-Pro-B Natriuret Pep Total Protein Albumin Arterial Blood Glucose Urine WBC (Auto) Urine Creatinine 03/07/20 11:36 WBC RBC Hgb Hct MCHC RDW MCV MCH Lymph % (Auto) Miller % (Auto) Miller # Eos # Lymph # (Auto) Miller # (Auto) Eos # (Auto) Seg Neutrophils % Seg Neuts % (Manual) Baso # (Auto) Lymphocytes % (Manual) Monocytes % (Manual) Eosinophils % (Manual) Basophils % (Manual) Seg Neutrophils # Seg Neutrophils # Man Lymphocytes # (Manual) Monocytes # (Manual) Eosinophils # (Manual) Nucleated RBC % Basophils # (Manual) PT INR APTT Heparin Anti-Xa Level ABG pH POC ABG pO2 ABG pO2 ABG HCO3 ABG O2 Saturation ABG Base Excess POC ABG pCO2 ABG Hemoglobin ABG Oxyhemoglobin ABG Chloride ABG Glucose Oxyhemoglobin Sodium Potassium Chloride Carbon Dioxide BUN Creatinine Glucose POC Glucose 127 H Lactic Acid Calcium Phosphorus Magnesium AST ALT Lactate Dehydrogenase Total Bilirubin Direct Bilirubin CK-MB (CK-2) C-Reactive Protein NT-Pro-B Natriuret Pep Total Protein Albumin Arterial Blood Glucose Urine WBC (Auto) Urine Creatinine Allied health notes reviewed: RT
[2020-03-07] MEDS: DIGOXIN 0.125 MG TAB PO SCH (17:22)
[2020-03-07] MEDS: TAMSULOSIN 0.4 MG CAP PO SCH (21:47)
[2020-03-07] MEDS: POLYETHYLENE GLYCOL 3350 17 GM POWDER PO SCH (21:49)
[2020-03-08] MEDS: INSULIN REGULAR, HUMAN 100 UNIT/ML 3ML VIAL SUB-Q SCH ×4 (07:27→18:04)
--- NOTE | 2020-03-08 08:40 | Progress Note ---
Assessment and Plan Assessment and plan: --Ischemic cardiomyopathy Cardiology is following, status post cardiac catheterization on 01/22/2020; Coronary artery disease status post PCI and stent to the LAD Continue current cardiac medications --Acute on chronic hypoxemic respiratory failure; Patient has tracheostomy on vent Continue nebulizers, , trach care Wean off ventilator as tolerated Pulmonary critical following --Acute exacerbation of COPD; Patient is currently on ventilatory support Continue nebulizers --Left lower lobe PE; Continue Eliquis, ventilatory support --Acute right lower extremity DVT; Patient is on Eliquis --Bilateral multifocal pneumonia/community-acquired Completed antibiotics, improved --Severe sepsis/bilateral pneumonia: Completed antibiotics COVID-19 test; 11/24/2019; negative 11/26/2019; negative 12/29/2019: Negative --Paroxysmal atrial fibrillation; Now rate controlled, Stable on amiodarone and Eliquis --Acute on chronic combined systolic and diastolic congestive heart failure Ischemic cardiomyopathy left ventricular ejection fraction 40 to 45% --H/o CAD [[facility] 12/2018 in-stent restenosis] Patient is stable on current cardiac medications --Hypertensive emergency; present on admission Reasonable blood pressures, continue current antihypertensives As needed medications --History of alcohol abuse/alcohol withdrawal; Was on CIWA protocol, now stable --Oropharyngeal dysphagia; status post PEG placement Continue PEG feeds per protocol --History of partial small bowel obstruction; resolved --Obesity; BMI 34.7 Patient needs weight reduction when medically stable --Severe protein calorie malnutrition/hypoalbuminemia Nutrition supplements, dietitian following, PEG feeds --DVT prophylaxis;Eliquis --Full CODE STATUS The high probability of a clinically significant, sudden or life threatening deterioration of the [Respiratory, cardiovascular & neurological] system(s) required my full and direct attention, intervention and personal management. The aggregate critical care time was [32] minutes without overlap. Time includes spent on [x] Data Review and interpretation [x] Patient assessment and monitoring of vital signs [x] Documentation [x] Medication orders and management 02/22. Awake and alert on vent. Vitals stable. 02/23. Awake and alert on vent. Requests for ice. Vitals stable 02/24. Trach to vent. Continue rate control with metoprolol and digoxin. Amiodarone discontinued due to elevated liver transaminases. Eliquis for anticoagulation of acute PE/DVT. Transferred to [facility] 02/25. Seen in IMCU. Requests for ice. RN to provide a cube of ice. Vitals stabl e. 02/26. No change in medical condition. Slightly tachy this AM. Will monitor. 02/27. Cardiology started him on a beta hebert. Still on vent 02/28. Discharge planning as per certified phlebotomy technician. Still on vent. Tachycardia noted. 03/01/2020; patient is tachycardic, still on the vent. Discharge management as per certified phlebotomy technician. 03/02/2020; patient is on a vent and trach. Discharge is per certified phlebotomy technician. 03/03/2012; patient is on vent and trach patient is alert and oriented. 03/04/2020; patient is on vent and trach, patient is alert. 03/05/2020; patient is on vent and trach, patient is alert. 03/06/2020 tracheostomy on vent , patient is alert, possible LTAC placement 03/08/2020 remains on ventilatory support; wean off the vent, pending LTAC placement History Interval history: I have seen and examined the patient at the bedside this morning Patient's chart and medications reviewed Patient with tracheostomy on ventilator support Sleeping easily awakens Hospitalist Physical - Constitutional Vitals: Temp Pulse Resp BP Pulse Ox 98.3 F 119 H 17 107/82 98 03/08/20 08:00 03/08/20 08:00 03/08/20 08:00 03/08/20 08:00 03/08/20 08:00 General appearance: Present: no acute distress, well-nourished, other (Tracheostomy on vent) - EENT Eyes: Present: PERRL, EOM intact - Neck Neck: Present: supple, other (Tracheostomy) - Respiratory Respiratory effort: normal Respiratory: bilateral: diminished, rhonchi, negative: rales, wheezing - Cardiovascular Rhythm: regular Heart Sounds: Present: S1 & S2 - Extremities Extremities: no ischemia, No edema - Abdominal General gastrointestinal: soft, non-tender, non-distended, other (PEG tube in place) - Integumentary Integumentary: Present: clear, warm - Psychiatric Psychiatric: other (Tracheostomy on ventilatory support) - Neurologic Neurologic: other (On ventilatory support) HEART Score - HEART Score Troponin: Troponin T < 0.010 ng/mL (0.00-0.029) 01/19/20 01:35 Results - Labs CBC & Chem 7: 03/04/20 20:38 03/04/20 20:38 Labs: Laboratory Last Values WBC 7.4 K/mm3 (4.5-11.0) 03/04/20 20:38 RBC 4.12 M/mm3 (3.65-5.03) 03/04/20 20:38 Hgb 10.1 gm/dl (11.8-15.2) L 03/04/20 20:38 Hct 32.7 % (35.5-45.6) L 03/04/20 20:38 MCV 79 fl (84-94) L 03/04/20 20:38 MCH 24 pg (28-32) L 03/04/20 20:38 MCHC 31 % (32-34) L 03/04/20 20:38 RDW 24.7 % (13.2-15.2) H 03/04/20 20:38 Plt Count 204 K/mm3 (140-440) 03/04/20 20:38 Lymph % (Auto) 27.0 % (13.4-35.0) 03/04/20 20:38 [place] % (Auto) 8.9 % (0.0-7.3) H 03/04/20 20:38 Eos % (Auto) 2.2 % (0.0-4.3) 03/04/20 20:38 Baso % (Auto) 0.3 % (0.0-1.8) 03/04/20 20:38 Lymph # (Auto) 2.0 K/mm3 (1.2-5.4) 03/04/20 20:38 [place] # (Auto) 0.7 K/mm3 (0.0-0.8) 03/04/20 20:38 Eos # (Auto) 0.2 K/mm3 (0.0-0.4) 03/04/20 20:38 Baso # (Auto) 0.0 K/mm3 (0.0-0.1) 03/04/20 20:38 Add Manual Diff Complete 02/15/20 06:59 Total Counted 100 02/15/20 06:59 Seg Neutrophils % 61.6 % (40.0-70.0) 03/04/20 20:38 Seg Neuts % (Manual) 58.0 % (40.0-70.0) 02/15/20 06:59 Band Neutrophils % 0 % 02/15/20 06:59 Lymphocytes % (Manual) 34.0 % (13.4-35.0) 02/15/20 06:59 Reactive Lymphs % (Man) 1.0 % 02/15/20 06:59 Monocytes % (Manual) 4.0 % (0.0-7.3) 02/15/20 06:59 Eosinophils % (Manual) 0 % (0.0-4.3) 02/15/20 06:59 Basophils % (Manual) 2.0 % (0.0-1.8) H 02/15/20 06:59 Metamyelocytes % 1.0 % 02/15/20 06:59 Myelocytes % 0 % 02/15/20 06:59 Promyelocytes % 0 % 02/15/20 06:59 Blast Cells % 0 % 02/15/20 06:59 Nucleated RBC % 1.0 % (0.0-0.9) H 02/15/20 06:59 Seg Neutrophils # 4.6 K/mm3 (1.8-7.7) 03/04/20 20:38 Seg Neutrophils # Man 5.9 K/mm3 (1.8-7.7) 02/15/20 06:59 Band Neutrophils # 0.0 K/mm3 02/15/20 06:59 Lymphocytes # (Manual) 3.5 K/mm3 (1.2-5.4) 02/15/20 06:59 Abs React Lymphs (Man) 0.1 K/mm3 02/15/20 06:59 Monocytes # (Manual) 0.4 K/mm3 (0.0-0.8) 02/15/20 06:59 Eosinophils # (Manual) 0.0 K/mm3 (0.0-0.4) 02/15/20 06:59 Basophils # (Manual) 0.2 K/mm3 (0.0-0.1) H 02/15/20 06:59 Metamyelocytes # 0.1 K/mm3 02/15/20 06:59 Myelocytes # 0.0 K/mm3 02/15/20 06:59 Promyelocytes # 0.0 K/mm3 02/15/20 06:59 Blast Cells # 0.0 K/mm3 02/15/20 06:59 WBC Morphology Not Reportable 02/15/20 06:59 Hypersegmented Neuts Not Reportable 02/15/20 06:59 Hyposegmented Neuts Not Reportable 02/15/20 06:59 Hypogranular Neuts Not Reportable 02/15/20 06:59 Smudge Cells Not Reportable 02/15/20 06:59 Toxic Granulation Not Reportable 02/15/20 06:59 Toxic Vacuolation Not Reportable 02/15/20 06:59 Dohle Bodies Not Reportable 02/15/20 06:59 Pelger-Huet Anomaly Not Reportable 02/15/20 06:59 Hector Rods Not Reportable 02/15/20 06:59 Platelet Estimate Consistent w auto 02/15/20 06:59 Clumped Platelets Not Reportable 02/15/20 06:59 Plt Clumps, EDTA Not Reportable 02/15/20 06:59 Large Platelets Not Reportable 02/15/20 06:59 Giant Platelets Not Reportable 02/15/20 06:59 Platelet Satelliting Not Reportable 02/15/20 06:59 Plt Morphology Comment Giant platelets 02/15/20 06:59 RBC Morphology Not Reportable 02/15/20 06:59 Dimorphic RBCs Not Reportable 02/15/20 06:59 Polychromasia Not Reportable 02/15/20 06:59 Hypochromasia 1+ 02/15/20 06:59 Poikilocytosis Few 02/15/20 06:59 Anisocytosis 1+ 02/15/20 06:59 Microcytosis Not Reportable 02/15/20 06:59 Macrocytosis Not Reportable 02/15/20 06:59 Spherocytes Not Reportable 02/15/20 06:59 Pappenheimer Bodies Not Reportable 02/15/20 06:59 Sickle Cells Not Reportable 02/15/20 06:59 Target Cells 1+ 02/15/20 06:59 Tear Drop Cells Few 02/15/20 06:59 Ovalocytes Not Reportable 02/15/20 06:59 Helmet Cells Not Reportable 02/15/20 06:59 Gottlieb-Hilton Bodies Not Reportable 02/15/20 06:59 [place] Rings Not Reportable 02/15/20 06:59 [place] Cells Not Reportable 02/15/20 06:59 Bite Cells Not Reportable 02/15/20 06:59 Crenated Cell Not Reportable 02/15/20 06:59 Elliptocytes Few 02/15/20 06:59 Acanthocytes (Spur) Not Reportable 02/15/20 06:59 Rouleaux Not Reportable 02/15/20 06:59 Hemoglobin C Crystals Not Reportable 02/15/20 06:59 Schistocytes Not Reportable 02/15/20 06:59 Malaria parasites Not Reportable 02/15/20 06:59 Clifford Bodies Not Reportable 02/15/20 06:59 Hem Pathologist Commnt No 02/15/20 06:59 PT 27.0 Sec. (12.2-14.9) H 02/07/20 15:03 INR 2.46 (0.87-1.13) H 02/07/20 15:03 APTT 31.5 Sec. (24.2-36.6) 01/22/20 09:58 Heparin Anti-Xa Level 1.34 U.I./ml (0.3-0.7) H 01/22/20 04:45 ABG pH 7.461 pH Units (7.350-7.450) H 02/20/20 06:45 POC ABG pCO2 34.8 mmHg (32.0-48.0) 02/11/20 14:11 ABG pCO2 47.8 mm Hg 02/20/20 06:45 POC ABG pO2 77.7 mmHg (83-108) L 02/11/20 14:11 ABG pO2 88.7 mm Hg (80.0-90.0) 02/20/20 06:45 POC ABG HCO3 26.7 02/11/20 14:11 ABG HCO3 33.3 mmol/L (20.0-26.0) H 02/20/20 06:45 ABG O2 Saturation 97.2 % (95.0-99.0) 02/20/20 06:45 ABG O2 Content 13.3 (0.0-44) 02/20/20 06:45 POC ABG Base Excess 3.6 02/11/20 14:11 ABG Base Excess 8.4 mmol/L (-2.0-3.0) H 02/20/20 06:45 ABG Hemoglobin 10.0 gm/dl (14.0-18.0) L 02/20/20 06:45 ABG Oxyhemoglobin 84 (94-98) L 12/22/19 03:22 ABG Carboxyhemoglobin 2.9 % (0.0-5.0) 02/20/20 06:45 ABG Methemoglobin 0.4 % (0.0-1.5) 02/20/20 06:45 ABG Sodium 144.7 mmol/L (136.0-145.0) 02/11/20 14:11 ABG Potassium 3.5 mmol/L (3.40-4.50) 02/11/20 14:11 ABG Chloride 108.0 mmol/L (98-107) H 02/11/20 14:11 ABG Glucose 151 mg/dL (65-95) H 02/11/20 14:11 Oxyhemoglobin 94.1 % (95.0-99.0) L 02/20/20 06:45 Carboxyhemoglobin 0.7 (0.5-1.5) 12/22/19 03:22 FiO2 30 % 02/20/20 06:45 Sodium 136 mmol/L (137-145) L 03/04/20 20:38 Potassium 4.5 mmol/L (3.6-5.0) 03/04/20 20:38 Chloride 99.8 mmol/L (98-107) 03/04/20 20:38 Carbon Dioxide 28 mmol/L (22-30) 03/04/20 20:38 Anion Gap 13 mmol/L 03/04/20 20:38 BUN 25 mg/dL (9-20) H 03/04/20 20:38 Creatinine 0.5 mg/dL (0.8-1.3) L 03/04/20 20:38 Estimated GFR > 60 ml/min 03/04/20 20:38 BUN/Creatinine Ratio 50 % 03/04/20 20:38 Glucose 148 mg/dL (75-100) H 03/04/20 20:38 POC Glucose 142 mg/dL (70-105) H 03/08/20 05:18 Lactic Acid 1.60 mmol/L (0.7-2.0) 02/03/20 12:49 Calcium 9.0 mg/dL (8.4-10.2) 03/04/20 20:38 Ferritin 84.4 ng/mL (30.0-300.0) 11/24/19 04:53 Phosphorus 4.10 mg/dL (2.5-4.5) 01/31/20 19:24 Magnesium 2.40 mg/dL (1.7-2.3) H 02/10/20 07:40 Total Bilirubin 1.30 mg/dL (0.1-1.2) H 02/08/20 19:00 Direct Bilirubin 0.9 mg/dL (0-0.2) H 02/08/20 19:00 Indirect Bilirubin 0.4 mg/dL 02/08/20 19:00 Total Creatine Kinase 141 units/L (55-170) 11/24/19 02:53 CK-MB (CK-2) 4.3 ng/mL (0.0-4.0) H 11/24/19 02:53 AST 309 units/L (5-40) H 02/08/20 19:00 ALT 650 units/L (7-56) H 02/08/20 19:00 CK-MB (CK-2) Rel Index 3.0 (0-4) 11/24/19 02:53 Alkaline Phosphatase 109 units/L (35-129) 02/08/20 19:00 C-Reactive Protein 8.50 mg/dL (0.00-1.30) H 12/01/19 12:16 Ammonia 35.0 umol/L (25-60) 02/03/20 12:49 Lactate Dehydrogenase 228 units/L (91-180) H 12/19/19 04:45 Troponin T < 0.010 ng/mL (0.00-0.029) 01/19/20 01:35 NT-Pro-B Natriuret Pep 3866 pg/mL (0-900) H 01/01/20 10:40 Total Protein 6.2 g/dL (6.3-8.2) L 02/08/20 19:00 Albumin 2.7 g/dL (3.9-5) L 02/08/20 19:00 Albumin/Globulin Ratio 0.8 % 02/08/20 19:00 Procalcitonin 0.44 ng/mL (<0.15) 02/03/20 12:49 Arterial Blood Glucose 151 mg/dL (65-95) H 02/11/20 14:11 Arterial Blood Ionized Calcium 4.7 mg/dL (4.6-5.3) 02/11/20 14:11 Urine Color Cecy (Yellow) 02/26/20 07:50 Urine Turbidity Clear (Clear) 02/26/20 07:50 Urine pH 5.0 (5.0-7.0) 02/26/20 07:50 Ur Specific [place] 1.025 (1.003-1.030) 02/26/20 07:50 Urine Protein 30 mg/dl mg/dL (Negative) 02/26/20 07:50 Urine Glucose (UA) Neg mg/dL (Negative) 02/26/20 07:50 Urine Ketones Neg mg/dL (Negative) 02/26/20 07:50 Urine Blood Sm (Negative) 02/26/20 07:50 Urine Nitrite Neg (Negative) 02/26/20 07:50 Urine Bilirubin Neg (Negative) 02/26/20 07:50 Urine Urobilinogen 4.0 mg/dL (<2.0) 02/26/20 07:50 Ur Leukocyte Esterase Lg (Negative) 02/26/20 07:50 Urine WBC (Auto) > 182.0 /HPF (0.0-6.0) H 02/26/20 07:50 Urine RBC (Auto) 84.0 /HPF (0.0-6.0) 02/26/20 07:50 U Epithel Cells (Auto) 2.0 /HPF (0-13.0) 12/31/19 18:04 Urine Bacteria (Auto) 4+ /HPF (Negative) 02/26/20 07:50 Urine WBC Clumps 2+ /HPF 02/26/20 07:50 Urine Mucus 1+ /HPF 02/26/20 07:50 Urine Creatinine 57.4 mg/dL (0.1-20.0) H 01/31/20 Unknown Urine Sodium 59 mmol/L 01/31/20 Unknown Vancomycin Trough 14.2 ug/mL (5.0-20.0) 12/13/19 15:01 Coronavirus (PCR) Negative (Negative) 12/29/19 10:07 Hepatitis A IgM Ab Non-reactive (NonReactive) 02/05/20 06:37 Hep Bs Antigen Non-reactive (Negative) 02/05/20 06:37 Hep B Core IgM Ab Non-reactive (NonReactive) 02/05/20 06:37 Hepatitis C Antibody Non-reactive (NonReactive) 02/05/20 06:37 Blood Type O POSITIVE 01/21/20 13:00 Antibody Screen Negative 01/21/20 13:00 - Diagnostic Impressions Diagnostic Impressions: Echocardiogram 11/29/19 07:37 Transthoracic Echocardiogram Indication: CHF BP: 116/72 HR: 33 Conclusions *The study is technically limited due to poor acoustic windows. *Global left ventricular systolic function is normal. *The estimated ejection fraction is 50-55%. *Mild concentric left ventricular hypertrophy is observed. *There is trace of mitral regurgitation. *There is mild tricuspid regurgitation. Findings Procedure Info: The study quality is poor. The study is technically limited due to poor acoustic windows. The study is technically limited due to patient body habitus. Left Ventricle: The left ventricular chamber size is normal. Mild concentric left ventricular hypertrophy is observed. Global left ventricular systolic function is normal. The estimated ejection fraction is 50-55%. Left Atrium: The left atrial chamber size is normal. Right Ventricle: The right ventricular cavity size is normal. Right Atrium: The right atrial cavity size is normal. Aortic Valve: The aortic valve leaflets are moderately thickened. There is trace of aortic regurgitation. There is no evidence of aortic stenosis. Mitral Valve: The mitral valve leaflets are mildly thickened. There is trace of mitral regurgitation. There is no evidence of mitral stenosis. Tricuspid Valve: There is mild tricuspid regurgitation. No pulmonary hypertension is noted. Pulmonic Valve: There is trace pulmonic regurgitation. Pericardium: There is no pericardial effusion. Aorta: There is no dilatation of the aortic root. Venous: The inferior vena cava appears normal in size. Contrast: Definity was used to optimize study. Intravenous contrast was used to enhance endocardial border definition. Measurements Chambers 2D Name Value Normal Range Ao root diameter (2D) 3.4 cm (2 - 3.7) Aortic Valve Name Value Normal Range AV Vmax 0.98 m/sec - AV VTI 16.76 cm - AV peak gradient 3.83 mmHg - AV mean gradient 2.57 mmHg - LVOT diameter 3.11 cm - LVOT Vmax 0.68 m/sec - LVOT VTI 11.52 cm - LVOT peak gradient 1.84 mmHg - LVOT mean gradient 1.27 mmHg - SV LVOT 87.31 ml - MALOU (continuity Vmax) 5.24 cm2 - MALOU (continuity VTI) 5.21 cm2 - Tricuspid Valve Name Value Normal Range IVC diameter 2.24 cm (1.2 - 2.3) Hoffman/IV: Voiding Method Indwelling Catheter IV Catheter Type [Left INT / Saline Lock Antecubital] IV Catheter Type [Right INT / Saline Lock Forearm] IV Catheter Type [Right Hand] Peripheral IV IV Catheter Type [Right Upper INT / Saline Lock arm] IV Catheter Type [Left Upper Mid-line arm] IV Catheter Type [Left Forearm Peripheral IV ] IV Catheter Type [Left Hand] INT / Saline Lock IV Catheter Type [Left Wrist] INT / Saline Lock IV Catheter Type [Right Peripheral IV Antecubital] Active Medications - Current Medications Current Medications: Generic Name Dose Route Start Last Admin Trade Name Freq PRN Reason Stop Dose Admin Lipase/Protease/Amylase 1 each 01/09/20 12:01 03/07/20 12:56 Lipase 10,500/Protease 25,000/Amylase 43,750 (Units) Dr Lauren FEEDTUBE 1 each PRN PRN Administration For Clogged Feeding Tube Apixaban 5 mg 01/22/20 22:00 03/07/20 21:47 Eliquis PO 5 mg Q12HR CAR Administration Protocol Atorvastatin Calcium 40 mg 01/20/20 22:00 03/07/20 21:48 Lipitor PO 40 mg QHS CAR Administration Clopidogrel Bisulfate 75 mg 01/21/20 06:00 03/07/20 09:11 Plavix PO 75 mg QDAY CAR Administration Dextrose 50 ml 01/31/20 18:51 02/05/20 00:56 D50w (25gm) Syringe IV 50 ml Q30MIN PRN Administration Hypoglycemia Protocol Digoxin 0.125 mg 02/25/20 17:00 03/07/20 17:22 Lanoxin PO 0.125 mg DAILY@1700 CAR Administration Docusate Sodium 100 mg 02/22/20 10:00 03/07/20 21:47 Colace FEEDTUBE 100 mg BID CAR Administration Glycopyrrolate 2 mg 02/24/20 21:00 03/07/20 20:12 Glycopyrrolate PO 2 mg TID CAR Administration Haloperidol Lactate 5 mg 02/10/20 14:20 12/10/20 02:25 Haldol IV 5 mg Q6H PRN Administration Agitation Hydrophilic Ointment 1 applic 01/17/20 15:26 02/24/20 23:20 Vaseline Lip Therapy TP 1 applic DIRECT PRN Administration Dry Lips Insulin Human Regular 0 unit 02/01/20 18:00 03/08/20 07:28 Humulin R SUB-Q Not Given Q6H [facility] Protocol Lansoprazole 30 mg 02/05/20 16:00 03/07/20 09:11 Lansoprazole 30 Mg Solutab FEEDTUBE 30 mg QDAY CAR Administration Metoprolol Tartrate 5 mg 01/11/20 08:00 03/03/20 01:46 Metoprolol IV 5 mg Q6H PRN Administration SEE INSTRUCTIONS Metoprolol Tartrate 12.5 mg 02/28/20 12:00 03/07/20 21:48 Metoprolol FEEDTUBE 12.5 mg BID CAR Administration Midodrine 15 mg 02/04/20 16:00 03/07/20 17:22 Midodrine 5 Mg Tab PO 15 mg TID@0800,1200,1600 CAR Administration Morphine Sulfate 2 mg 01/06/20 15:41 03/03/20 10:05 Morphine 2 Mg/1 Ml Inj IV 2 mg Q4H PRN Administration Pain, Moderate (4-6) Multi-Ingred Cream/Lotion/Oil/Oint 1 applic 02/01/20 15:52 Artificial Tears Ophth Oint OU Q4HR PRN Dry Eye(s) Nitroglycerin 0.4 mg 01/19/20 21:09 01/20/20 03:03 Nitrostat SL 0.4 mg .Q5MIN PRN Administration Chest Pain Ondansetron HCl 4 mg 01/05/20 14:37 03/05/20 20:04 Ondansetron 4 Mg/2 Ml Inj IV 4 mg Q8H PRN Administration Nausea And Vomiting Polyethylene Glycol 17 gm 12/04/19 22:00 03/07/20 21:49 Miralax 3350 PO 17 gm QHS CAR Administration Quetiapine Fumarate 300 mg 01/13/20 22:00 03/07/20 21:49 Seroquel PO 300 mg BID CAR Administration Simple Syrup 15 ml 01/09/20 12:01 Simple Syrup 15 Ml FEEDTUBE PRN PRN Hypoglycemia Simple Syrup 30 ml 01/09/20 12:01 Simple Syrup 15 Ml FEEDTUBE PRN PRN Hypoglycemia Sodium Bicarbonate 325 mg 01/09/20 12:01 03/07/20 12:56 Sodium Bicarbonate 325 Mg Tab FEEDTUBE 325 mg PRN PRN Administration For Clogged Feeding Tube Sodium Chloride 10 ml 11/24/19 10:00 03/07/20 21:50 Sodium Chloride Flush Syringe 10 Ml IV 10 ml BID CAR Administration Tamsulosin HCl 0.8 mg 12/20/19 22:00 03/07/20 21:47 Flomax PO 0.8 mg QHS CAR Administration Nutrition/Malnutrition Assess - Dietary Evaluation Nutrition/Malnutrition Findings: Nutrition Notes Start: 11/24/19 12:22 Freq: Status: Active Protocol: Document 03/07/20 11:26 (Rec: 03/07/20 11:29 [id number]) Nutrition Notes Initial or Follow up Reassessment Current Diagnosis Coronary Artery Disease,Heart Failure,Respiratory Failure, Stroke,Hyperlipidemia Other Pertinent Diagnosis Partial SBO, pneu Current Diet Osmolite 1.5 at 65ml/hr Labs/Tests No new labs Pertinent Medications Colace Height 6 ft 2 in Weight 124 kg [place] Body Weight (kg) 86.36 BMI 35.1 Weight Status Obese Subjective/Other Information FU for TF. Pt TF turned off d/ t N/V. Per RN, pt PEG tube clotted and unable to restart TF until fixed. 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 Yes Is Patient Ambulatory and/or Out of Bed No REE-([facility]-confined to bed) 2530.260 Kcal/Kg value to use for calculation 17 Approximate Energy Requirements Using 2108 kcal/Kg Calculation Used for Recommendations Kcal/kg Additional Notes Protein needs are 173g ( greater than 2g/kg IBW) Fluid needs are 1 ml/kcal Nutrition Intervention Change Diet Order: Continue TF via PEG Nutrition Support: Osmolite 1.5 at 65 ml/hr. Flush 200 ml q4h. Kcal 2,340 Protein (gm) 98 Fluid (mL) 1,189 Goal #1 Meet at least 75% of pt's energy and protein needs Goal #2 Weight maintenance Anticipated Discharge Needs: unable to determine at this time Follow-Up By: 03/09/20 Additional Comments F/u for TF restart and tolerance
[2020-03-08] MEDS: MIDODRINE 5 MG TAB PO SCH ×3 (08:58→17:32)
[2020-03-08] MEDS: GLYCOPYRROLATE 2 MG TAB PO SCH ×3 (08:59→22:44)
[2020-03-08] MEDS: CLOPIDOGREL 75 MG TAB PO SCH (09:02)
[2020-03-08] MEDS: QUEtiapine 100 MG TAB PO SCH ×2 (09:02→22:30)
[2020-03-08] MEDS: METOPROLOL TARTRATE 25 MG TAB FEEDTUBE SCH ×2 (09:02→22:44)
[2020-03-08] MEDS: APIXABAN 5 MG TAB PO SCH ×2 (09:02→22:30)
[2020-03-08] MEDS: DOCUSATE SODIUM 100 MG/10 ML ORAL LIQD FEEDTUBE SCH ×2 (09:02→22:30)
[2020-03-08] MEDS: LANSOPRAZOLE 30 MG SOLUTAB FEEDTUBE SCH (09:02)
[2020-03-08] MEDS: DIGOXIN 0.125 MG TAB PO SCH (17:32)
[2020-03-08] MEDS: POLYETHYLENE GLYCOL 3350 17 GM POWDER PO SCH (22:29)
[2020-03-08] MEDS: TAMSULOSIN 0.4 MG CAP PO SCH (22:30)
[2020-03-08] MEDS: ONDANSETRON 4 MG/2 ML INJ IV PRN (22:39)
[2020-03-09] MEDS: INSULIN REGULAR, HUMAN 100 UNIT/ML 3ML VIAL SUB-Q SCH ×4 (00:40→18:56)
[2020-03-09 07:54] LABS: Basophils % (Auto) 0.6 % (0.0-1.8); Eosinophils # (Auto) 0.2 K/mm3 (0.0-0.4); Eosinophils % (Auto) 2.9 % (0.0-4.3); Hematocrit 31.6 % (35.5-45.6); Hemoglobin 9.8 gm/dl (11.8-15.2); Lymphocytes # (Auto) 2.1 K/mm3 (1.2-5.4); Lymphocytes % (Auto) 35.1 % (13.4-35.0); Mean Corpuscular HGB Conc 31 % (32-34); Mean Corpuscular Volume 80 fl (84-94); Monocytes # (Auto) 0.7 K/mm3 (0.0-0.8); Monocytes % (Auto) 11.4 % (0.0-7.3); Platelet Count 200 K/mm3 (140-440); Red Blood Count 3.98 M/mm3 (3.65-5.03)
[2020-03-09 07:56] LABS: Red Cell Distribution Width 23.1 % (13.2-15.2)
[2020-03-09 08:12] LABS: Blood Urea Nitrogen 25 mg/dL (9-20); Calcium 8.9 mg/dL (8.4-10.2); Hemolysis Index 43
[2020-03-09 08:18] LABS: BUN/Creatinine Ratio 42
--- NOTE | 2020-03-09 08:47 | Progress Note ---
Assessment and Plan Assessment and plan: --Acute on chronic hypoxemic respiratory failure; Patient has tracheostomy on vent Continue nebulizers, , trach care Wean off ventilator as tolerated Pulmonary critical following --Ischemic cardiomyopathy Cardiology is following, status post cardiac catheterization on 01/22/2020; Coronary artery disease status post PCI and stent to the LAD Continue current cardiac medications --Acute exacerbation of COPD; Patient is currently on ventilatory support Continue nebulizers --Left lower lobe PE; Continue Eliquis, ventilatory support --Acute right lower extremity DVT; Patient is on Eliquis --Bilateral multifocal pneumonia/community-acquired Completed antibiotics, improved --Severe sepsis/bilateral pneumonia: Completed antibiotics COVID-19 test; 11/24/2019; negative 11/26/2019; negative 12/29/2019: Negative --Paroxysmal atrial fibrillation; Now rate controlled, Stable on amiodarone and Eliquis --Acute on chronic combined systolic and diastolic congestive heart failure Ischemic cardiomyopathy left ventricular ejection fraction 40 to 45% --H/o CAD [[facility] 12/2018 in-stent restenosis] Patient is stable on current cardiac medications --Hypertensive emergency; present on admission Reasonable blood pressures, continue current antihypertensives As needed medications --History of alcohol abuse/alcohol withdrawal; Was on CIWA protocol, now stable --Oropharyngeal dysphagia; status post PEG placement Continue PEG feeds per protocol --History of partial small bowel obstruction; resolved --Obesity; BMI 34.7 Patient needs weight reduction when medically stable --Severe protein calorie malnutrition/hypoalbuminemia Nutrition supplements, dietitian following, PEG feeds --DVT prophylaxis;Eliquis --Full CODE STATUS DC planning per case management/LTAC versus home when medically stable We will closely monitor the patient and adjust the management as needed Plan of care reviewed with the patient's nurse. The high probability of a clinically significant, sudden or life threatening deterioration of the [Respiratory, cardiovascular & neurological] system(s) required my full and direct attention, intervention and personal management. The aggregate critical care time was [32] minutes without overlap. Time includes spent on [x] Data Review and interpretation [x] Patient assessment and monitoring of vital signs [x] Documentation [x] Medication orders and management 02/22. Awake and alert on vent. Vitals stable. 02/23. Awake and alert on vent. Requests for ice. Vitals stable 02/24. Trach to vent. Continue rate control with metoprolol and digoxin. Amiodarone discontinued due to elevated liver transaminases. Eliadonayis for anticoagulation of acute PE/DVT. Transferred to [facility] 02/25. Seen in [facility]. Requests for ice. RN to provide a cube of ice. Vitals stable. 02/26. No change in medical condition. Slightly tachy this AM. Will monitor. 02/27. Cardiology started him on a beta hebert. Still on vent 02/28. Discharge planning as per basin finish operator tig welder. Still on vent. Tachycardia noted. 03/01/2020; patient is tachycardic, still on the vent. Discharge management as per basin finish operator tig welder. 03/02/2020; patient is on a vent and trach. Discharge is per basin finish operator tig welder. 03/03/2012; patient is on vent and trach patient is alert and oriented. 03/04/2020; patient is on vent and trach, patient is alert. 03/05/2020; patient is on vent and trach, patient is alert. 03/06/2020 tracheostomy on vent , patient is alert, possible LTAC placement 03/08/2020 remains on ventilatory support; wean off the vent, pending LTAC placement 03/09/2020; clinically no change, tracheostomy on ventilatory support, unable to wean, awaiting LTAC placement, social issues History Interval history: I have seen and examined the patient at the bedside in [facility] this morning Patient's chart and current medications reviewed Patient with tracheostomy on ventilatory support, unable to wean Patient is alert and awake Not in acute distress Vital signs reviewed Hospitalist Physical - Constitutional Vitals: Temp Pulse Resp BP Pulse Ox 97.9 F 133 H 21 103/72 98 03/09/20 08:00 03/09/20 07:00 03/09/20 07:00 03/09/20 07:00 03/09/20 07:00 General appearance: Present: no acute distress, well-nourished, other (Tracheostomy on vent) - EENT Eyes: Present: PERRL, EOM intact ENT: other (Tracheostomy in place) - Neck Neck: Present: supple, normal ROM - Respiratory Respiratory effort: normal Respiratory: bilateral: diminished, rhonchi, negative: rales, wheezing - Cardiovascular Rhythm: regular Heart Sounds: Present: S1 & S2 - Extremities Extremities: no ischemia, No edema - Abdominal General gastrointestinal: soft, non-tender, non-distended, normal bowel sounds - Integumentary Integumentary: Present: clear, warm - Psychiatric Psychiatric: appropriate mood/affect, other (On vent) - Neurologic Neurologic: other (On vent) HEART Score - HEART Score Troponin: Troponin T < 0.010 ng/mL (0.00-0.029) 01/19/20 01:35 Results - Labs CBC & Chem 7: 03/09/20 06:32 03/09/20 06:32 Labs: Laboratory Last Values WBC 6.1 K/mm3 (4.5-11.0) 03/09/20 06:32 RBC 3.98 M/mm3 (3.65-5.03) 03/09/20 06:32 Hgb 9.8 gm/dl (11.8-15.2) L 03/09/20 06:32 Hct 31.6 % (35.5-45.6) L 03/09/20 06:32 MCV 80 fl (84-94) L 03/09/20 06:32 MCH 25 pg (28-32) L 03/09/20 06:32 MCHC 31 % (32-34) L 03/09/20 06:32 RDW 23.1 % (13.2-15.2) H 03/09/20 06:32 Plt Count 200 K/mm3 (140-440) 03/09/20 06:32 Lymph % (Auto) 35.1 % (13.4-35.0) H 03/09/20 06:32 Mcnairy % (Auto) 11.4 % (0.0-7.3) H 03/09/20 06:32 Eos % (Auto) 2.9 % (0.0-4.3) 03/09/20 06:32 Baso % (Auto) 0.6 % (0.0-1.8) 03/09/20 06:32 Lymph # (Auto) 2.1 K/mm3 (1.2-5.4) 03/09/20 06:32 Mcnairy # (Auto) 0.7 K/mm3 (0.0-0.8) 03/09/20 06:32 Eos # (Auto) 0.2 K/mm3 (0.0-0.4) 03/09/20 06:32 Baso # (Auto) 0.0 K/mm3 (0.0-0.1) 03/09/20 06:32 Add Manual Diff Complete 02/15/20 06:59 Total Counted 100 02/15/20 06:59 Seg Neutrophils % 50.0 % (40.0-70.0) 03/09/20 06:32 Seg Neuts % (Manual) 58.0 % (40.0-70.0) 02/15/20 06:59 Band Neutrophils % 0 % 02/15/20 06:59 Lymphocytes % (Manual) 34.0 % (13.4-35.0) 02/15/20 06:59 Reactive Lymphs % (Man) 1.0 % 02/15/20 06:59 Monocytes % (Manual) 4.0 % (0.0-7.3) 02/15/20 06:59 Eosinophils % (Manual) 0 % (0.0-4.3) 02/15/20 06:59 Basophils % (Manual) 2.0 % (0.0-1.8) H 02/15/20 06:59 Metamyelocytes % 1.0 % 02/15/20 06:59 Myelocytes % 0 % 02/15/20 06:59 Promyelocytes % 0 % 02/15/20 06:59 Blast Cells % 0 % 02/15/20 06:59 Nucleated RBC % 1.0 % (0.0-0.9) H 02/15/20 06:59 Seg Neutrophils # 3.0 K/mm3 (1.8-7.7) 03/09/20 06:32 Seg Neutrophils # Man 5.9 K/mm3 (1.8-7.7) 02/15/20 06:59 Band Neutrophils # 0.0 K/mm3 02/15/20 06:59 Lymphocytes # (Manual) 3.5 K/mm3 (1.2-5.4) 02/15/20 06:59 Abs React Lymphs (Man) 0.1 K/mm3 02/15/20 06:59 Monocytes # (Manual) 0.4 K/mm3 (0.0-0.8) 02/15/20 06:59 Eosinophils # (Manual) 0.0 K/mm3 (0.0-0.4) 02/15/20 06:59 Basophils # (Manual) 0.2 K/mm3 (0.0-0.1) H 02/15/20 06:59 Metamyelocytes # 0.1 K/mm3 02/15/20 06:59 Myelocytes # 0.0 K/mm3 02/15/20 06:59 Promyelocytes # 0.0 K/mm3 02/15/20 06:59 Blast Cells # 0.0 K/mm3 02/15/20 06:59 WBC Morphology Not Reportable 02/15/20 06:59 Hypersegmented Neuts Not Reportable 02/15/20 06:59 Hyposegmented Neuts Not Reportable 02/15/20 06:59 Hypogranular Neuts Not Reportable 02/15/20 06:59 Smudge Cells Not Reportable 02/15/20 06:59 Toxic Granulation Not Reportable 02/15/20 06:59 Toxic Vacuolation Not Reportable 02/15/20 06:59 Dohle Bodies Not Reportable 02/15/20 06:59 Pelger-Huet Anomaly Not Reportable 02/15/20 06:59 Hector Rods Not Reportable 02/15/20 06:59 Platelet Estimate Consistent w auto 02/15/20 06:59 Clumped Platelets Not Reportable 02/15/20 06:59 Plt Clumps, EDTA Not Reportable 02/15/20 06:59 Large Platelets Not Reportable 02/15/20 06:59 Giant Platelets Not Reportable 02/15/20 06:59 Platelet Satelliting Not Reportable 02/15/20 06:59 Plt Morphology Comment Giant platelets 02/15/20 06:59 RBC Morphology Not Reportable 02/15/20 06:59 Dimorphic RBCs Not Reportable 02/15/20 06:59 Polychromasia Not Reportable 02/15/20 06:59 Hypochromasia 1+ 02/15/20 06:59 Poikilocytosis Few 02/15/20 06:59 Anisocytosis 1+ 02/15/20 06:59 Microcytosis Not Reportable 02/15/20 06:59 Macrocytosis Not Reportable 02/15/20 06:59 Spherocytes Not Reportable 02/15/20 06:59 Pappenheimer Bodies Not Reportable 02/15/20 06:59 Sickle Cells Not Reportable 02/15/20 06:59 Target Cells 1+ 02/15/20 06:59 Tear Drop Cells Few 02/15/20 06:59 Ovalocytes Not Reportable 02/15/20 06:59 Helmet Cells Not Reportable 02/15/20 06:59 Gottlieb[place] Bodies Not Reportable 02/15/20 06:59 Palms Rings Not Reportable 02/15/20 06:59 Oc Cells Not Reportable 02/15/20 06:59 Bite Cells Not Reportable 02/15/20 06:59 Crenated Cell Not Reportable 02/15/20 06:59 Elliptocytes Few 02/15/20 06:59 Acanthocytes (Spur) Not Reportable 02/15/20 06:59 Rouleaux Not Reportable 02/15/20 06:59 Hemoglobin C Crystals Not Reportable 02/15/20 06:59 Schistocytes Not Reportable 02/15/20 06:59 Malaria parasites Not Reportable 02/15/20 06:59 Clifford Bodies Not Reportable 02/15/20 06:59 Hem Pathologist Commnt No 02/15/20 06:59 PT 27.0 Sec. (12.2-14.9) H 02/07/20 15:03 INR 2.46 (0.87-1.13) H 02/07/20 15:03 APTT 31.5 Sec. (24.2-36.6) 01/22/20 09:58 Heparin Anti-Xa Level 1.34 U.I./ml (0.3-0.7) H 01/22/20 04:45 ABG pH 7.461 pH Units (7.350-7.450) H 02/20/20 06:45 POC ABG pCO2 34.8 mmHg (32.0-48.0) 02/11/20 14:11 ABG pCO2 47.8 mm Hg 02/20/20 06:45 POC ABG pO2 77.7 mmHg (83-108) L 02/11/20 14:11 ABG pO2 88.7 mm Hg (80.0-90.0) 02/20/20 06:45 POC ABG HCO3 26.7 02/11/20 14:11 ABG HCO3 33.3 mmol/L (20.0-26.0) H 02/20/20 06:45 ABG O2 Saturation 97.2 % (95.0-99.0) 02/20/20 06:45 ABG O2 Content 13.3 (0.0-44) 02/20/20 06:45 POC ABG Base Excess 3.6 02/11/20 14:11 ABG Base Excess 8.4 mmol/L (-2.0-3.0) H 02/20/20 06:45 ABG Hemoglobin 10.0 gm/dl (14.0-18.0) L 02/20/20 06:45 ABG Oxyhemoglobin 84 (94-98) L 12/22/19 03:22 ABG Carboxyhemoglobin 2.9 % (0.0-5.0) 02/20/20 06:45 ABG Methemoglobin 0.4 % (0.0-1.5) 02/20/20 06:45 ABG Sodium 144.7 mmol/L (136.0-145.0) 02/11/20 14:11 ABG Potassium 3.5 mmol/L (3.40-4.50) 02/11/20 14:11 ABG Chloride 108.0 mmol/L (98-107) H 02/11/20 14:11 ABG Glucose 151 mg/dL (65-95) H 02/11/20 14:11 Oxyhemoglobin 94.1 % (95.0-99.0) L 02/20/20 06:45 Carboxyhemoglobin 0.7 (0.5-1.5) 12/22/19 03:22 FiO2 30 % 02/20/20 06:45 Sodium 136 mmol/L (137-145) L 03/09/20 06:32 Potassium 4.2 mmol/L (3.6-5.0) 03/09/20 06:32 Chloride 98.9 mmol/L (98-107) 03/09/20 06:32 Carbon Dioxide 29 mmol/L (22-30) 03/09/20 06:32 Anion Gap 12 mmol/L 03/09/20 06:32 BUN 25 mg/dL (9-20) H 03/09/20 06:32 Creatinine 0.6 mg/dL (0.8-1.3) L 03/09/20 06:32 Estimated GFR > 60 ml/min 03/09/20 06:32 BUN/Creatinine Ratio 42 % 03/09/20 06:32 Glucose 170 mg/dL (75-100) H 03/09/20 06:32 POC Glucose 158 mg/dL (70-105) H 03/09/20 05:36 Lactic Acid 1.60 mmol/L (0.7-2.0) 02/03/20 12:49 Calcium 8.9 mg/dL (8.4-10.2) 03/09/20 06:32 Ferritin 84.4 ng/mL (30.0-300.0) 11/24/19 04:53 Phosphorus 4.10 mg/dL (2.5-4.5) 01/31/20 19:24 Magnesium 2.40 mg/dL (1.7-2.3) H 02/10/20 07:40 Total Bilirubin 1.30 mg/dL (0.1-1.2) H 02/08/20 19:00 Direct Bilirubin 0.9 mg/dL (0-0.2) H 02/08/20 19:00 Indirect Bilirubin 0.4 mg/dL 02/08/20 19:00 Total Creatine Kinase 141 units/L (55-170) 11/24/19 02:53 CK-MB (CK-2) 4.3 ng/mL (0.0-4.0) H 11/24/19 02:53 AST 309 units/L (5-40) H 02/08/20 19:00 ALT 650 units/L (7-56) H 02/08/20 19:00 CK-MB (CK-2) Rel Index 3.0 (0-4) 11/24/19 02:53 Alkaline Phosphatase 109 units/L (35-129) 02/08/20 19:00 C-Reactive Protein 8.50 mg/dL (0.00-1.30) H 12/01/19 12:16 Ammonia 35.0 umol/L (25-60) 02/03/20 12:49 Lactate Dehydrogenase 228 units/L (91-180) H 12/19/19 04:45 Troponin T < 0.010 ng/mL (0.00-0.029) 01/19/20 01:35 NT-Pro-B Natriuret Pep 3866 pg/mL (0-900) H 01/01/20 10:40 Total Protein 6.2 g/dL (6.3-8.2) L 02/08/20 19:00 Albumin 2.7 g/dL (3.9-5) L 02/08/20 19:00 Albumin/Globulin Ratio 0.8 % 02/08/20 19:00 Procalcitonin 0.44 ng/mL (<0.15) 02/03/20 12:49 Arterial Blood Glucose 151 mg/dL (65-95) H 02/11/20 14:11 Arterial Blood Ionized Calcium 4.7 mg/dL (4.6-5.3) 02/11/20 14:11 Urine Color Cecy (Yellow) 02/26/20 07:50 Urine Turbidity Clear (Clear) 02/26/20 07:50 Urine pH 5.0 (5.0-7.0) 02/26/20 07:50 Ur Specific Moore 1.025 (1.003-1.030) 02/26/20 07:50 Urine Protein 30 mg/dl mg/dL (Negative) 02/26/20 07:50 Urine Glucose (UA) Neg mg/dL (Negative) 02/26/20 07:50 Urine Ketones Neg mg/dL (Negative) 02/26/20 07:50 Urine Blood Sm (Negative) 02/26/20 07:50 Urine Nitrite Neg (Negative) 02/26/20 07:50 Urine Bilirubin Neg (Negative) 02/26/20 07:50 Urine Urobilinogen 4.0 mg/dL (<2.0) 02/26/20 07:50 Ur Leukocyte Esterase Lg (Negative) 02/26/20 07:50 Urine WBC (Auto) > 182.0 /HPF (0.0-6.0) H 02/26/20 07:50 Urine RBC (Auto) 84.0 /HPF (0.0-6.0) 02/26/20 07:50 U Epithel Cells (Auto) 2.0 /HPF (0-13.0) 12/31/19 18:04 Urine Bacteria (Auto) 4+ /HPF (Negative) 02/26/20 07:50 Urine WBC Clumps 2+ /HPF 02/26/20 07:50 Urine Mucus 1+ /HPF 02/26/20 07:50 Urine Creatinine 57.4 mg/dL (0.1-20.0) H 01/31/20 Unknown Urine Sodium 59 mmol/L 01/31/20 Unknown Vancomycin Trough 14.2 ug/mL (5.0-20.0) 12/13/19 15:01 Coronavirus (PCR) Negative (Negative) 12/29/19 10:07 Hepatitis A IgM Ab Non-reactive (NonReactive) 02/05/20 06:37 Hep Bs Antigen Non-reactive (Negative) 02/05/20 06:37 Hep B Core IgM Ab Non-reactive (NonReactive) 02/05/20 06:37 Hepatitis C Antibody Non-reactive (NonReactive) 02/05/20 06:37 Blood Type O POSITIVE 01/21/20 13:00 Antibody Screen Negative 01/21/20 13:00 - Diagnostic Impressions Diagnostic Impressions: Echocardiogram 11/29/19 07:37 Transthoracic Echocardiogram Indication: CHF BP: 116/72 HR: 33 Conclusions *The study is technically limited due to poor acoustic windows. *Global left ventricular systolic function is normal. *The estimated ejection fraction is 50-55%. *Mild concentric left ventricular hypertrophy is observed. *There is trace of mitral regurgitation. *There is mild tricuspid regurgitation. Findings Procedure Info: The study quality is poor. The study is technically limited due to poor acoustic windows. The study is technically limited due to patient body habitus. Left Ventricle: The left ventricular chamber size is normal. Mild concentric left ventricular hypertrophy is observed. Global left ventricular systolic function is normal. The estimated ejection fraction is 50-55%. Left Atrium: The left atrial chamber size is normal. Right Ventricle: The right ventricular cavity size is normal. Right Atrium: The right atrial cavity size is normal. Aortic Valve: The aortic valve leaflets are moderately thickened. There is trace of aortic regurgitation. There is no evidence of aortic stenosis. Mitral Valve: The mitral valve leaflets are mildly thickened. There is trace of mitral regurgitation. There is no evidence of mitral stenosis. Tricuspid Valve: There is mild tricuspid regurgitation. No pulmonary hypertension is noted. Pulmonic Valve: There is trace pulmonic regurgitation. Pericardium: There is no pericardial effusion. Aorta: There is no dilatation of the aortic root. Venous: The inferior vena cava appears normal in size. Contrast: Definity was used to optimize study. Intravenous contrast was used to enhance endocardial border definition. Measurements Chambers 2D Name Value Normal Range Ao root diameter (2D) 3.4 cm (2 - 3.7) Aortic Valve Name Value Normal Range AV Vmax 0.98 m/sec - AV VTI 16.76 cm - AV peak gradient 3.83 mmHg - AV mean gradient 2.57 mmHg - LVOT diameter 3.11 cm - LVOT Vmax 0.68 m/sec - LVOT VTI 11.52 cm - LVOT peak gradient 1.84 mmHg - LVOT mean gradient 1.27 mmHg - SV LVOT 87.31 ml - MALOU (continuity Vmax) 5.24 cm2 - MALOU (continuity VTI) 5.21 cm2 - Tricuspid Valve Name Value Normal Range IVC diameter 2.24 cm (1.2 - 2.3) Hoffman/IV: Voiding Method Indwelling Catheter IV Catheter Type [Left INT / Saline Lock Antecubital] IV Catheter Type [Right INT / Saline Lock Forearm] IV Catheter Type [Right Hand] Peripheral IV IV Catheter Type [Right Upper INT / Saline Lock arm] IV Catheter Type [Left Upper Mid-line arm] IV Catheter Type [Left Forearm Peripheral IV ] IV Catheter Type [Left Hand] INT / Saline Lock IV Catheter Type [Left Wrist] INT / Saline Lock IV Catheter Type [Right Peripheral IV Antecubital] Active Medications - Current Medications Current Medications: Generic Name Dose Route Start Last Admin Trade Name Freq PRN Reason Stop Dose Admin Lipase/Protease/Amylase 1 each 01/09/20 12:01 03/07/20 12:56 Lipase 10,500/Protease 25,000/Amylase 43,750 (Units) Dr Lauren FEEDTUBE 1 each PRN PRN Administration For Clogged Feeding Tube Apixaban 5 mg 01/22/20 22:00 03/08/20 22:30 Eliquis PO 5 mg Q12HR CAR Administration Protocol Atorvastatin Calcium 40 mg 01/20/20 22:00 03/08/20 22:30 Lipitor PO 40 mg QHS CAR Administration Clopidogrel Bisulfate 75 mg 01/21/20 06:00 03/08/20 09:02 Plavix PO 75 mg QDAY CAR Administration Dextrose 50 ml 01/31/20 18:51 02/05/20 00:56 D50w (25gm) Syringe IV 50 ml Q30MIN PRN Administration Hypoglycemia Protocol Digoxin 0.125 mg 02/25/20 17:00 03/08/20 17:32 Lanoxin PO 0.125 mg DAILY@1700 CAR Administration Docusate Sodium 100 mg 02/22/20 10:00 03/08/20 22:30 Colace FEEDTUBE 100 mg BID CAR Administration Glycopyrrolate 2 mg 02/24/20 21:00 03/08/20 22:44 Glycopyrrolate PO 2 mg TID CAR Administration Haloperidol Lactate 5 mg 02/10/20 14:20 03/03/20 02:25 Haldol IV 5 mg Q6H PRN Administration Agitation Hydrophilic Ointment 1 applic 01/17/20 15:26 02/24/20 23:20 Vaseline Lip Therapy TP 1 applic DIRECT PRN Administration Dry Lips Insulin Human Regular 0 unit 02/01/20 18:00 03/09/20 06:55 Humulin R SUB-Q 1 unit Q6H CAR Administration Protocol Lansoprazole 30 mg 02/05/20 16:00 03/08/20 09:02 Lansoprazole 30 Mg Solutab FEEDTUBE 30 mg QDAY CAR Administration Metoprolol Tartrate 5 mg 01/11/20 08:00 03/03/20 01:46 Metoprolol Tartrate 5 Mg/5 Ml Inj IV 5 mg Q6H PRN Administration SEE INSTRUCTIONS Metoprolol Tartrate 12.5 mg 02/28/20 12:00 03/08/20 22:44 Metoprolol FEEDTUBE Not Given BID [facility] Midodrine 15 mg 02/04/20 16:00 03/08/20 17:32 Midodrine 5 Mg Tab PO 15 mg TID@0800,1200,1600 CAR Administration Morphine Sulfate 2 mg 01/06/20 15:41 03/03/20 10:05 Morphine 2 Mg/1 Ml Inj IV 2 mg Q4H PRN Administration Pain, Moderate (4-6) Multi-Ingred Cream/Lotion/Oil/Oint 1 applic 02/01/20 15:52 Artificial Tears Ophth Oint OU Q4HR PRN Dry Eye(s) Nitroglycerin 0.4 mg 01/19/20 21:09 01/20/20 03:03 Nitrostat SL 0.4 mg .Q5MIN PRN Administration Chest Pain Ondansetron HCl 4 mg 01/05/20 14:37 03/08/20 22:39 Ondansetron 4 Mg/2 Ml Inj IV 4 mg Q8H PRN Administration Nausea And Vomiting Polyethylene Glycol 17 gm 12/04/19 22:00 12/15/20 22:29 Miralax 3350 PO 17 gm QHS CAR Administration Quetiapine Fumarate 300 mg 01/13/20 22:00 03/08/20 22:30 Seroquel PO 300 mg BID CAR Administration Simple Syrup 15 ml 01/09/20 12:01 Simple Syrup 15 Ml FEEDTUBE PRN PRN Hypoglycemia Simple Syrup 30 ml 01/09/20 12:01 Simple Syrup 15 Ml FEEDTUBE PRN PRN Hypoglycemia Sodium Bicarbonate 325 mg 01/09/20 12:01 03/07/20 12:56 Sodium Bicarbonate 325 Mg Tab FEEDTUBE 325 mg PRN PRN Administration For Clogged Feeding Tube Sodium Chloride 10 ml 11/24/19 10:00 03/08/20 22:30 Sodium Chloride Flush Syringe 10 Ml IV 10 ml BID CAR Administration Tamsulosin HCl 0.8 mg 12/20/19 22:00 03/08/20 22:30 Flomax PO 0.8 mg QHS CAR Administration Nutrition/Malnutrition Assess - Dietary Evaluation Nutrition/Malnutrition Findings: Nutrition Notes Start: 11/24/19 12:22 Freq: Status: Active Protocol: Document 03/07/20 11:26 (Rec: 03/07/20 11:29 [id number]) Nutrition Notes Initial or Follow up Reassessment Current Diagnosis Coronary Artery Disease,Heart Failure,Respiratory Failure, Stroke,Hyperlipidemia Other Pertinent Diagnosis Partial SBO, pneu Current Diet Osmolite 1.5 at 65ml/hr Labs/Tests No new labs Pertinent Medications Colace Height 6 ft 2 in Weight 124 kg [place] Body Weight (kg) 86.36 BMI 35.1 Weight Status Obese Subjective/Other Information FU for TF. Pt TF turned off d/ t N/V. Per RN, pt PEG tube clotted and unable to restart TF until fixed. Percent of energy/protein needs met: 0%/0% Burn Absent Trauma Absent GI Symptoms None Current % PO Negligible Minimum of two criteria Yes Muscle Mass Mild Depletion (non-severe) Fluid Accumulation Mild (non-severe) Reduced Braille Proofreader Strength Measurably Reduced (severe) #2 Nutrition Diagnosis Malnutrition Diagnosis Progress(for reassessment Continues documentation) #1 Nutrition Diagnosis Inadequate oral intake Diagnosis Progress(for reassessment Continues documentation) Is patient on ventilator? Yes Is Patient Ambulatory and/or Out of Bed No [place] 2530.260 Kcal/Kg value to use for calculation 17 Approximate Energy Requirements Using 2108 kcal/Kg Calculation Used for Recommendations Kcal/kg Additional Notes Protein needs are 173g ( greater than 2g/kg IBW) Fluid needs are 1 ml/kcal Nutrition Intervention Change Diet Order: Continue TF via PEG Nutrition Support: Osmolite 1.5 at 65 ml/hr. Flush 200 ml q4h. Kcal 2,340 Protein (gm) 98 Fluid (mL) 1,189 Goal #1 Meet at least 75% of pt's energy and protein needs Goal #2 Weight maintenance Anticipated Discharge Needs: unable to determine at this time Follow-Up By: 03/09/20 Additional Comments F/u for TF restart and tolerance
[2020-03-09] MEDS: GLYCOPYRROLATE 2 MG TAB PO SCH ×3 (10:06→21:37)
[2020-03-09] MEDS: LANSOPRAZOLE 30 MG SOLUTAB FEEDTUBE SCH (10:06)
[2020-03-09] MEDS: APIXABAN 5 MG TAB PO SCH ×2 (10:06→21:37)
[2020-03-09] MEDS: QUEtiapine 100 MG TAB PO SCH ×2 (10:07→21:37)
[2020-03-09] MEDS: MIDODRINE 5 MG TAB PO SCH ×3 (10:07→18:51)
[2020-03-09] MEDS: DOCUSATE SODIUM 100 MG/10 ML ORAL LIQD FEEDTUBE SCH ×2 (10:08→21:38)
[2020-03-09] MEDS: METOPROLOL TARTRATE 25 MG TAB FEEDTUBE SCH ×2 (10:08→21:38)
--- NOTE | 2020-03-09 14:05 | Progress Note ---
Assessment and Plan Patient admitted for acute hypoxic respiratory failure, S/P tracheostomy.Patient sleeping. Resting on Pressure support mechanical ventilation, Pressure support 12 , FIO2 30%, PEEP 6 and O2 saturation running 100%. ABG FIO2 30%. ABG pH 7.461 pH Units (7.350-7.450) H 02/20/20 06:45 POC ABG pCO2 34.8 mmHg (32.0-48.0) 02/11/20 14:11 ABG pCO2 47.8 mm Hg 02/20/20 06:45 POC ABG pO2 77.7 mmHg (83-108) L 02/11/20 14:11 ABG pO2 88.7 mm Hg (80.0-90.0) 02/20/20 06:45 POC ABG HCO3 26.7 02/11/20 14:11 ABG O2 Saturation 97.2 % (95.0-99.0) 02/20/20 06:45 Patient afebrile. No leukocytosis. Chest xray done 03/01/20 reported Essentially unchanged airspace disease when compared to 02/18/2020. Patient presently not on any antibiotics. Patient is on Apixaban and prevacid. Repeating chest xray and ABGs. I spent critical care time of 35 minutes on this patient review the chart, obtain history , examining the patient, review chest xray, labs, talking to the nursing staff and respiratory therapy and work out plan of treatment un this critically ill patient. - Patient Problems (1) Acute respiratory failure Current Visit: Yes Status: Acute Plan to address problem: Patient is on mechanical ventilation pressure support 12, FIO2 30%, PEEP 6. Albuterol/atrovent aerosol treatments. Continue apixaban Continue prevacid. (2) COPD exacerbation Current Visit: No Status: Acute Plan to address problem: Patient is on mechanical ventilation Pressure support 15, FIO2 30%, PEEP 6. Albuterol/atrovent aerosol treatments. Continue apixaban Continue Prevacid (3) Bilateral pneumonia Current Visit: Yes Status: Acute Plan to address problem: Chest xray 03/01/20 Essentially unchanged airspace disease when compared to 02/18/2020. Patient afebrile. No leukocytosis. (4) CHF exacerbation Current Visit: Yes Status: Acute Plan to address problem: Management as per cardiology. (5) Cardiomyopathy Current Visit: Yes Status: Acute Plan to address problem: Management as per cardiology. (6) Pancreatic lesion Current Visit: Yes Status: Acute Plan to address problem: Management as per primary care. (7) Paroxysmal atrial fibrillation Current Visit: Yes Status: Acute Plan to address problem: Patient is on apixaban. Management as per cardiology. (8) CVA (cerebral vascular accident) Current Visit: No Status: Acute Qualifiers: Precerebral and cerebral artery: middle cerebral artery Laterality of affected vessel: right Plan to address problem: Management as per primary care. (9) Cocaine dependence Current Visit: No Status: Acute Plan to address problem: Management as per primary care. (10) HTN (hypertension) Current Visit: No Status: Acute Qualifiers: Hypertension type: essential hypertension Qualified Code(s): I10 - Essential (primary) hypertension Plan to address problem: Management as per primary care. (11) Nicotine dependence Current Visit: No Status: Acute Qualifiers: Nicotine product type: cigarettes Substance use status: in withdrawal Qualified Code(s): F17.213 - Nicotine dependence, cigarettes, with withdrawal Plan to address problem: Counseled to stop smoking. (12) Obesity hypoventilation syndrome Current Visit: No Status: Acute Plan to address problem: Pagient S/P tracheostomy and on mechanical ventilation. Subjective Date of service: 03/09/20 Principal diagnosis: Ac hypoxemic resp failure; Pneumonia; PUI COVID-19; CHF; COPD; HTN Interval history: Patient admitted for acute hypoxic respiratory failure, S/P tracheostomy.Patient sleeping. Resting on Pressure support mechanical ventilation, Pressure support 12 , FIO2 30%, PEEP 6 and O2 saturation running 100%. ABG FIO2 30%. ABG pH 7.461 pH Units (7.350-7.450) H 02/20/20 06:45 POC ABG pCO2 34.8 mmHg (32.0-48.0) 02/11/20 14:11 ABG pCO2 47.8 mm Hg 02/20/20 06:45 POC ABG pO2 77.7 mmHg (83-108) L 02/11/20 14:11 ABG pO2 88.7 mm Hg (80.0-90.0) 02/20/20 06:45 POC ABG HCO3 26.7 02/11/20 14:11 ABG O2 Saturation 97.2 % (95.0-99.0) 02/20/20 06:45 Patient afebrile. No leukocytosis. Chest xray done 03/01/20 reported Essentially unchanged airspace disease when compared to 02/18/2020. Patient presently not on any antibiotics. Patient is on Apixaban and prevacid. Repeating chest xray and ABGs. Objective Vital Signs - 12hr 03/09/20 03/09/20 03/09/20 03:00 04:00 04:02 Temperature 97.1 F L Pulse Rate 121 H 126 H 126 H Respiratory 16 23 Rate Respiratory 20 Rate [ Generalized] Blood Pressure 89/71 108/85 O2 Sat by Pulse 100 99 Oximetry 03/09/20 03/09/20 03/09/20 05:00 05:52 06:00 Temperature Pulse Rate 112 H 118 H 130 H Respiratory 16 13 Rate Respiratory Rate [ Generalized] Blood Pressure 107/65 107/65 113/75 O2 Sat by Pulse 100 99 100 Oximetry 03/09/20 03/09/20 03/09/20 07:00 08:00 08:27 Temperature 97.9 F Pulse Rate 133 H 119 H 117 H Respiratory 21 26 H 17 Rate Respiratory Rate [ Generalized] Blood Pressure 103/72 99/77 99/77 O2 Sat by Pulse 98 100 100 Oximetry 03/09/20 03/09/20 03/09/20 09:00 10:00 11:00 Temperature Pulse Rate 115 H 109 H 122 H Respiratory 17 14 19 Rate Respiratory Rate [ Generalized] Blood Pressure 97/73 109/82 103/77 O2 Sat by Pulse 99 99 99 Oximetry 03/09/20 12:00 Temperature 97.4 F L Pulse Rate 114 H Respiratory Rate Respiratory Rate [ Generalized] Blood Pressure 127/67 O2 Sat by Pulse 99 Oximetry Constitutional: no acute distress, asleep, other (Patient is resting on mechanical ventilation, awake and makes needs know by mouthing words and phonating around trach) Eyes: non-icteric ENT: oropharynx moist, other (+ midline tracheostomy) Neck: supple, no JVD Effort: mildly labored Ascultation: Bilateral: diminished breath sounds, rhonchi (scant), other (mild tracheal secretions ) Percussion: Bilateral: not dull Cardiovascular: irregular rhythm Gastrointestinal: normoactive bowel sounds, soft, non-tender, non-distended, other (protuberant; PEG in place) Integumentary: normal Extremities: no cyanosis, pulses normal, no ischemia or petechiae, edema (bilateral lower extemities) Neurologic: non-focal exam (moves extremities), pupils equal and round, other (Patient sleeping.) Psychiatric: mood appropriate, anxious, other CBC and BMP: 03/09/20 06:32 03/09/20 06:32 ABG, PT/INR, D-dimer: ABG ABG pH 7.461 pH Units (7.350-7.450) H 02/20/20 06:45 POC ABG pCO2 34.8 mmHg (32.0-48.0) 02/11/20 14:11 ABG pCO2 47.8 mm Hg 02/20/20 06:45 POC ABG pO2 77.7 mmHg (83-108) L 02/11/20 14:11 ABG pO2 88.7 mm Hg (80.0-90.0) 02/20/20 06:45 POC ABG HCO3 26.7 02/11/20 14:11 ABG O2 Saturation 97.2 % (95.0-99.0) 02/20/20 06:45 PT/INR, D-dimer PT 27.0 Sec. (12.2-14.9) H 02/07/20 15:03 INR 2.46 (0.87-1.13) H 02/07/20 15:03 Abnormal lab findings: Abnormal Labs 11/24/19 11/24/19 11/24/19 02:53 02:53 03:45 WBC 14.3 H RBC Hgb Hct MCHC RDW 17.2 H MCV MCH Lymph % (Auto) Teller % (Auto) Teller # Eos # Lymph # (Auto) Teller # (Auto) Eos # (Auto) Seg Neutrophils % Seg Neuts % (Manual) Baso # (Auto) Lymphocytes % (Manual) Monocytes % (Manual) Eosinophils % (Manual) Basophils % (Manual) Seg Neutrophils # Seg Neutrophils # Man 8.3 H Lymphocytes # (Manual) Monocytes # (Manual) 0.9 H Eosinophils # (Manual) Nucleated RBC % Basophils # (Manual) PT INR APTT Heparin Anti-Xa Level ABG pH 7.313 L POC ABG pO2 ABG pO2 102.8 H ABG HCO3 ABG O2 Saturation ABG Base Excess -2.9 L POC ABG pCO2 ABG Hemoglobin ABG Oxyhemoglobin ABG Chloride ABG Glucose Oxyhemoglobin 93.9 L Sodium Potassium Chloride Carbon Dioxide BUN Creatinine Glucose 195 H POC Glucose Lactic Acid Calcium Phosphorus Magnesium AST ALT Lactate Dehydrogenase Total Bilirubin Direct Bilirubin CK-MB (CK-2) 4.3 H C-Reactive Protein NT-Pro-B Natriuret Pep 1181 H Total Protein Albumin Arterial Blood Glucose Urine WBC (Auto) Urine Creatinine 11/24/19 11/24/19 11/24/19 04:53 04:53 10:37 WBC RBC Hgb Hct MCHC RDW MCV MCH Lymph % (Auto) Teller % (Auto) Teller # Eos # Lymph # (Auto) Teller # (Auto) Eos # (Auto) Seg Neutrophils % Seg Neuts % (Manual) Baso # (Auto) Lymphocytes % (Manual) Monocytes % (Manual) Eosinophils % (Manual) Basophils % (Manual) Seg Neutrophils # Seg Neutrophils # Man Lymphocytes # (Manual) Monocytes # (Manual) Eosinophils # (Manual) Nucleated RBC % Basophils # (Manual) PT INR APTT Heparin Anti-Xa Level ABG pH POC ABG pO2 ABG pO2 ABG HCO3 ABG O2 Saturation ABG Base Excess POC ABG pCO2 ABG Hemoglobin ABG Oxyhemoglobin ABG Chloride ABG Glucose Oxyhemoglobin Sodium Potassium Chloride Carbon Dioxide BUN Creatinine Glucose 162 H POC Glucose Lactic Acid 2.40 H* 2.50 H* Calcium Phosphorus Magnesium AST ALT Lactate Dehydrogenase 240 H Total Bilirubin Direct Bilirubin CK-MB (CK-2) C-Reactive Protein NT-Pro-B Natriuret Pep Total Protein Albumin Arterial Blood Glucose Urine WBC (Auto) Urine Creatinine 11/24/19 11/24/19 11/24/19 12:21 14:50 19:54 WBC RBC Hgb Hct MCHC RDW MCV MCH Lymph % (Auto) Teller % (Auto) Teller # Eos # Lymph # (Auto) Teller # (Auto) Eos # (Auto) Seg Neutrophils % Seg Neuts % (Manual) Baso # (Auto) Lymphocytes % (Manual) Monocytes % (Manual) Eosinophils % (Manual) Basophils % (Manual) Seg Neutrophils # Seg Neutrophils # Man Lymphocytes # (Manual) Monocytes # (Manual) Eosinophils # (Manual) Nucleated RBC % Basophils # (Manual) PT INR APTT Heparin Anti-Xa Level ABG pH POC ABG pO2 ABG pO2 ABG HCO3 ABG O2 Saturation ABG Base Excess POC ABG pCO2 ABG Hemoglobin ABG Oxyhemoglobin ABG Chloride ABG Glucose Oxyhemoglobin Sodium Potassium Chloride Carbon Dioxide BUN Creatinine Glucose POC Glucose 145 H 143 H 124 H Lactic Acid Calcium Phosphorus Magnesium AST ALT Lactate Dehydrogenase Total Bilirubin Direct Bilirubin CK-MB (CK-2) C-Reactive Protein NT-Pro-B Natriuret Pep Total Protein Albumin Arterial Blood Glucose Urine WBC (Auto) Urine Creatinine 11/25/19 11/25/19 11/25/19 00:18 03:18 05:11 WBC 13.7 H RBC Hgb Hct MCHC RDW 17.1 H MCV MCH Lymph % (Auto) 10.8 L Teller % (Auto) 8.7 H Teller # 1.2 H Eos # Lymph # (Auto) Teller # (Auto) Eos # (Auto) Seg Neutrophils % 80.2 H Seg Neuts % (Manual) Baso # (Auto) Lymphocytes % (Manual) Monocytes % (Manual) Eosinophils % (Manual) Basophils % (Manual) Seg Neutrophils # 11.0 H Seg Neutrophils # Man Lymphocytes # (Manual) Monocytes # (Manual) Eosinophils # (Manual) Nucleated RBC % Basophils # (Manual) PT INR APTT Heparin Anti-Xa Level ABG pH 7.333 L POC ABG pO2 ABG pO2 61.2 L ABG HCO3 ABG O2 Saturation 90.2 L ABG Base Excess POC ABG pCO2 ABG Hemoglobin 13.7 L ABG Oxyhemoglobin ABG Chloride ABG Glucose Oxyhemoglobin 88.2 L Sodium Potassium Chloride Carbon Dioxide BUN Creatinine Glucose POC Glucose 109 H Lactic Acid Calcium Phosphorus Magnesium AST ALT Lactate Dehydrogenase Total Bilirubin Direct Bilirubin CK-MB (CK-2) C-Reactive Protein NT-Pro-B Natriuret Pep Total Protein Albumin Arterial Blood Glucose Urine WBC (Auto) Urine Creatinine 11/25/19 11/25/19 11/26/19 05:11 11:40 03:12 WBC RBC Hgb Hct MCHC RDW MCV MCH Lymph % (Auto) Teller % (Auto) Teller # Eos # Lymph # (Auto) Teller # (Auto) Eos # (Auto) Seg Neutrophils % Seg Neuts % (Manual) Baso # (Auto) Lymphocytes % (Manual) Monocytes % (Manual) Eosinophils % (Manual) Basophils % (Manual) Seg Neutrophils # Seg Neutrophils # Man Lymphocytes # (Manual) Monocytes # (Manual) Eosinophils # (Manual) Nucleated RBC % Basophils # (Manual) PT INR APTT Heparin Anti-Xa Level ABG pH POC ABG pO2 ABG pO2 155.1 H ABG HCO3 27.8 H ABG O2 Saturation ABG Base Excess POC ABG pCO2 ABG Hemoglobin 12.2 L ABG Oxyhemoglobin ABG Chloride ABG Glucose Oxyhemoglobin Sodium Potassium Chloride Carbon Dioxide BUN 23 H Creatinine Glucose 110 H POC Glucose 108 H Lactic Acid Calcium Phosphorus Magnesium AST ALT Lactate Dehydrogenase Total Bilirubin Direct Bilirubin CK-MB (CK-2) C-Reactive Protein NT-Pro-B Natriuret Pep Total Protein Albumin Arterial Blood Glucose Urine WBC (Auto) Urine Creatinine 11/26/19 11/26/19 11/26/19 06:17 10:43 10:43 WBC 11.4 H RBC Hgb Hct MCHC RDW 17.1 H MCV MCH Lymph % (Auto) Teller % (Auto) Teller # Eos # Lymph # (Auto) Teller # (Auto) Eos # (Auto) Seg Neutrophils % Seg Neuts % (Manual) Baso # (Auto) Lymphocytes % (Manual) Monocytes % (Manual) Eosinophils % (Manual) Basophils % (Manual) Seg Neutrophils # Seg Neutrophils # Man Lymphocytes # (Manual) Monocytes # (Manual) Eosinophils # (Manual) Nucleated RBC % Basophils # (Manual) PT INR APTT Heparin Anti-Xa Level ABG pH POC ABG pO2 ABG pO2 ABG HCO3 ABG O2 Saturation ABG Base Excess POC ABG pCO2 ABG Hemoglobin ABG Oxyhemoglobin ABG Chloride ABG Glucose Oxyhemoglobin Sodium Potassium Chloride Carbon Dioxide BUN 29 H Creatinine Glucose POC Glucose 107 H Lactic Acid Calcium Phosphorus Magnesium AST ALT Lactate Dehydrogenase Total Bilirubin Direct Bilirubin CK-MB (CK-2) C-Reactive Protein NT-Pro-B Natriuret Pep Total Protein Albumin Arterial Blood Glucose Urine WBC (Auto) Urine Creatinine 11/26/19 11/27/19 11/27/19 17:11 01:53 04:11 WBC RBC Hgb Hct MCHC RDW MCV MCH Lymph % (Auto) Teller % (Auto) Teller # Eos # Lymph # (Auto) Teller # (Auto) Eos # (Auto) Seg Neutrophils % Seg Neuts % (Manual) Baso # (Auto) Lymphocytes % (Manual) Monocytes % (Manual) Eosinophils % (Manual) Basophils % (Manual) Seg Neutrophils # Seg Neutrophils # Man Lymphocytes # (Manual) Monocytes # (Manual) Eosinophils # (Manual) Nucleated RBC % Basophils # (Manual) PT INR APTT Heparin Anti-Xa Level ABG pH POC ABG pO2 ABG pO2 ABG HCO3 29.2 H ABG O2 Saturation ABG Base Excess 3.4 H POC ABG pCO2 ABG Hemoglobin 13.3 L ABG Oxyhemoglobin ABG Chloride ABG Glucose Oxyhemoglobin 94.5 L Sodium Potassium Chloride Carbon Dioxide BUN Creatinine Glucose POC Glucose 113 H 108 H Lactic Acid Calcium Phosphorus Magnesium AST ALT Lactate Dehydrogenase Total Bilirubin Direct Bilirubin CK-MB (CK-2) C-Reactive Protein NT-Pro-B Natriuret Pep Total Protein Albumin Arterial Blood Glucose Urine WBC (Auto) Urine Creatinine 11/27/19 11/28/19 11/28/19 05:27 05:00 05:25 WBC RBC Hgb Hct MCHC RDW MCV MCH Lymph % (Auto) Teller % (Auto) Teller # Eos # Lymph # (Auto) Teller # (Auto) Eos # (Auto) Seg Neutrophils % Seg Neuts % (Manual) Baso # (Auto) Lymphocytes % (Manual) Monocytes % (Manual) Eosinophils % (Manual) Basophils % (Manual) Seg Neutrophils # Seg Neutrophils # Man Lymphocytes # (Manual) Monocytes # (Manual) Eosinophils # (Manual) Nucleated RBC % Basophils # (Manual) PT INR APTT Heparin Anti-Xa Level ABG pH POC ABG pO2 68.1 L ABG pO2 ABG HCO3 ABG O2 Saturation ABG Base Excess POC ABG pCO2 ABG Hemoglobin ABG Oxyhemoglobin 91.2 L ABG Chloride ABG Glucose Oxyhemoglobin Sodium Potassium Chloride Carbon Dioxide BUN Creatinine Glucose POC Glucose 111 H 110 H Lactic Acid Calcium Phosphorus Magnesium AST ALT Lactate Dehydrogenase Total Bilirubin Direct Bilirubin CK-MB (CK-2) C-Reactive Protein NT-Pro-B Natriuret Pep Total Protein Albumin Arterial Blood Glucose Urine WBC (Auto) Urine Creatinine 11/28/19 11/28/19 11/28/19 12:08 13:47 13:47 WBC 11.3 H RBC Hgb Hct MCHC RDW 16.1 H MCV MCH Lymph % (Auto) Teller % (Auto) 9.9 H Teller # 1.1 H Eos # Lymph # (Auto) Teller # (Auto) Eos # (Auto) Seg Neutrophils % 71.4 H Seg Neuts % (Manual) Baso # (Auto) Lymphocytes % (Manual) Monocytes % (Manual) Eosinophils % (Manual) Basophils % (Manual) Seg Neutrophils # 8.1 H Seg Neutrophils # Man Lymphocytes # (Manual) Monocytes # (Manual) Eosinophils # (Manual) Nucleated RBC % Basophils # (Manual) PT INR APTT Heparin Anti-Xa Level ABG pH POC ABG pO2 ABG pO2 ABG HCO3 ABG O2 Saturation ABG Base Excess POC ABG pCO2 ABG Hemoglobin ABG Oxyhemoglobin ABG Chloride ABG Glucose Oxyhemoglobin Sodium Potassium Chloride Carbon Dioxide BUN 23 H Creatinine Glucose 123 H POC Glucose 112 H Lactic Acid Calcium Phosphorus Magnesium AST ALT Lactate Dehydrogenase Total Bilirubin Direct Bilirubin CK-MB (CK-2) C-Reactive Protein NT-Pro-B Natriuret Pep Total Protein Albumin 3.7 L Arterial Blood Glucose Urine WBC (Auto) Urine Creatinine 11/28/19 11/29/19 11/29/19 17:26 03:55 17:04 WBC RBC Hgb Hct MCHC RDW MCV MCH Lymph % (Auto) Teller % (Auto) Teller # Eos # Lymph # (Auto) Teller # (Auto) Eos # (Auto) Seg Neutrophils % Seg Neuts % (Manual) Baso # (Auto) Lymphocytes % (Manual) Monocytes % (Manual) Eosinophils % (Manual) Basophils % (Manual) Seg Neutrophils # Seg Neutrophils # Man Lymphocytes # (Manual) Monocytes # (Manual) Eosinophils # (Manual) Nucleated RBC % Basophils # (Manual) PT INR APTT Heparin Anti-Xa Level ABG pH POC ABG pO2 ABG pO2 65.7 L ABG HCO3 28.3 H ABG O2 Saturation 93.9 L ABG Base Excess 3.6 H POC ABG pCO2 ABG Hemoglobin 13.3 L ABG Oxyhemoglobin ABG Chloride ABG Glucose Oxyhemoglobin 91.5 L Sodium Potassium Chloride Carbon Dioxide BUN Creatinine Glucose POC Glucose 123 H 119 H Lactic Acid Calcium Phosphorus Magnesium AST ALT Lactate Dehydrogenase Total Bilirubin Direct Bilirubin CK-MB (CK-2) C-Reactive Protein NT-Pro-B Natriuret Pep Total Protein Albumin Arterial Blood Glucose Urine WBC (Auto) Urine Creatinine 11/30/19 11/30/19 11/30/19 04:17 04:17 04:56 WBC 13.4 H RBC Hgb Hct MCHC RDW 15.6 H MCV MCH Lymph % (Auto) Teller % (Auto) Teller # Eos # Lymph # (Auto) Teller # (Auto) Eos # (Auto) Seg Neutrophils % Seg Neuts % (Manual) Baso # (Auto) Lymphocytes % (Manual) Monocytes % (Manual) Eosinophils % (Manual) Basophils % (Manual) Seg Neutrophils # Seg Neutrophils # Man Lymphocytes # (Manual) Monocytes # (Manual) Eosinophils # (Manual) Nucleated RBC % Basophils # (Manual) PT INR APTT Heparin Anti-Xa Level ABG pH POC ABG pO2 ABG pO2 56.3 L ABG HCO3 29.3 H ABG O2 Saturation 91.5 L ABG Base Excess 4.7 H POC ABG pCO2 ABG Hemoglobin 12.1 L ABG Oxyhemoglobin ABG Chloride ABG Glucose Oxyhemoglobin 89.2 L Sodium 147 H Potassium Chloride Carbon Dioxide BUN 30 H Creatinine Glucose 124 H POC Glucose Lactic Acid Calcium Phosphorus Magnesium AST ALT Lactate Dehydrogenase Total Bilirubin Direct Bilirubin CK-MB (CK-2) C-Reactive Protein NT-Pro-B Natriuret Pep Total Protein Albumin 3.8 L Arterial Blood Glucose Urine WBC (Auto) Urine Creatinine 11/30/19 11/30/19 11/30/19 05:51 11:54 18:17 WBC RBC Hgb Hct MCHC RDW MCV MCH Lymph % (Auto) Teller % (Auto) Teller # Eos # Lymph # (Auto) Teller # (Auto) Eos # (Auto) Seg Neutrophils % Seg Neuts % (Manual) Baso # (Auto) Lymphocytes % (Manual) Monocytes % (Manual) Eosinophils % (Manual) Basophils % (Manual) Seg Neutrophils # Seg Neutrophils # Man Lymphocytes # (Manual) Monocytes # (Manual) Eosinophils # (Manual) Nucleated RBC % Basophils # (Manual) PT INR APTT Heparin Anti-Xa Level ABG pH POC ABG pO2 ABG pO2 ABG HCO3 ABG O2 Saturation ABG Base Excess POC ABG pCO2 ABG Hemoglobin ABG Oxyhemoglobin ABG Chloride ABG Glucose Oxyhemoglobin Sodium Potassium Chloride Carbon Dioxide BUN Creatinine Glucose POC Glucose 127 H 115 H 143 H Lactic Acid Calcium Phosphorus Magnesium AST ALT Lactate Dehydrogenase Total Bilirubin Direct Bilirubin CK-MB (CK-2) C-Reactive Protein NT-Pro-B Natriuret Pep Total Protein Albumin Arterial Blood Glucose Urine WBC (Auto) Urine Creatinine 12/01/19 12/01/19 12/01/19 01:18 05:22 12:16 WBC RBC Hgb Hct MCHC RDW MCV MCH Lymph % (Auto) Teller % (Auto) Teller # Eos # Lymph # (Auto) Teller # (Auto) Eos # (Auto) Seg Neutrophils % Seg Neuts % (Manual) Baso # (Auto) Lymphocytes % (Manual) Monocytes % (Manual) Eosinophils % (Manual) Basophils % (Manual) Seg Neutrophils # Seg Neutrophils # Man Lymphocytes # (Manual) Monocytes # (Manual) Eosinophils # (Manual) Nucleated RBC % Basophils # (Manual) PT INR APTT Heparin Anti-Xa Level ABG pH POC ABG pO2 ABG pO2 ABG HCO3 ABG O2 Saturation ABG Base Excess POC ABG pCO2 ABG Hemoglobin ABG Oxyhemoglobin ABG Chloride ABG Glucose Oxyhemoglobin Sodium Potassium 3.5 L Chloride 107.8 H Carbon Dioxide BUN 37 H Creatinine Glucose 157 H POC Glucose 118 H 148 H Lactic Acid Calcium 8.2 L D Phosphorus Magnesium AST 48 H ALT 60 H Lactate Dehydrogenase 194 H Total Bilirubin Direct Bilirubin CK-MB (CK-2) C-Reactive Protein 8.50 H NT-Pro-B Natriuret Pep Total Protein 5.5 L Albumin 2.8 L Arterial Blood Glucose Urine WBC (Auto) Urine Creatinine 12/01/19 12/02/19 12/02/19 18:04 00:05 05:16 WBC 11.4 H RBC Hgb Hct MCHC RDW 15.9 H MCV MCH Lymph % (Auto) Teller % (Auto) 9.9 H Teller # 1.1 H Eos # Lymph # (Auto) Teller # (Auto) Eos # (Auto) Seg Neutrophils % 70.3 H Seg Neuts % (Manual) Baso # (Auto) Lymphocytes % (Manual) Monocytes % (Manual) Eosinophils % (Manual) Basophils % (Manual) Seg Neutrophils # 8.0 H Seg Neutrophils # Man Lymphocytes # (Manual) Monocytes # (Manual) Eosinophils # (Manual) Nucleated RBC % Basophils # (Manual) PT INR APTT Heparin Anti-Xa Level ABG pH POC ABG pO2 ABG pO2 ABG HCO3 ABG O2 Saturation ABG Base Excess POC ABG pCO2 ABG Hemoglobin ABG Oxyhemoglobin ABG Chloride ABG Glucose Oxyhemoglobin Sodium Potassium Chloride Carbon Dioxide BUN Creatinine Glucose POC Glucose 143 H 107 H Lactic Acid Calcium Phosphorus Magnesium AST ALT Lactate Dehydrogenase Total Bilirubin Direct Bilirubin CK-MB (CK-2) C-Reactive Protein NT-Pro-B Natriuret Pep Total Protein Albumin Arterial Blood Glucose Urine WBC (Auto) Urine Creatinine 12/02/19 12/02/19 12/02/19 05:16 06:03 11:52 WBC RBC Hgb Hct MCHC RDW MCV MCH Lymph % (Auto) Teller % (Auto) Teller # Eos # Lymph # (Auto) Teller # (Auto) Eos # (Auto) Seg Neutrophils % Seg Neuts % (Manual) Baso # (Auto) Lymphocytes % (Manual) Monocytes % (Manual) Eosinophils % (Manual) Basophils % (Manual) Seg Neutrophils # Seg Neutrophils # Man Lymphocytes # (Manual) Monocytes # (Manual) Eosinophils # (Manual) Nucleated RBC % Basophils # (Manual) PT INR APTT Heparin Anti-Xa Level ABG pH POC ABG pO2 ABG pO2 ABG HCO3 ABG O2 Saturation ABG Base Excess POC ABG pCO2 ABG Hemoglobin ABG Oxyhemoglobin ABG Chloride ABG Glucose Oxyhemoglobin Sodium 146 H Potassium Chloride Carbon Dioxide BUN 28 H Creatinine Glucose 123 H POC Glucose 110 H 152 H Lactic Acid Calcium Phosphorus Magnesium AST ALT Lactate Dehydrogenase Total Bilirubin Direct Bilirubin CK-MB (CK-2) C-Reactive Protein NT-Pro-B Natriuret Pep Total Protein Albumin Arterial Blood Glucose Urine WBC (Auto) Urine Creatinine 12/02/19 12/02/19 12/02/19 12:58 17:58 23:36 WBC RBC Hgb Hct MCHC RDW MCV MCH Lymph % (Auto) Teller % (Auto) Teller # Eos # Lymph # (Auto) Teller # (Auto) Eos # (Auto) Seg Neutrophils % Seg Neuts % (Manual) Baso # (Auto) Lymphocytes % (Manual) Monocytes % (Manual) Eosinophils % (Manual) Basophils % (Manual) Seg Neutrophils # Seg Neutrophils # Man Lymphocytes # (Manual) Monocytes # (Manual) Eosinophils # (Manual) Nucleated RBC % Basophils # (Manual) PT INR APTT Heparin Anti-Xa Level ABG pH POC ABG pO2 78.1 L ABG pO2 ABG HCO3 ABG O2 Saturation ABG Base Excess POC ABG pCO2 ABG Hemoglobin ABG Oxyhemoglobin ABG Chloride ABG Glucose Oxyhemoglobin Sodium Potassium Chloride Carbon Dioxide BUN Creatinine Glucose POC Glucose 120 H 123 H Lactic Acid Calcium Phosphorus Magnesium AST ALT Lactate Dehydrogenase Total Bilirubin Direct Bilirubin CK-MB (CK-2) C-Reactive Protein NT-Pro-B Natriuret Pep Total Protein Albumin Arterial Blood Glucose Urine WBC (Auto) Urine Creatinine 12/03/19 12/03/19 12/03/19 06:03 06:14 11:46 WBC RBC Hgb Hct MCHC RDW MCV MCH Lymph % (Auto) Teller % (Auto) Teller # Eos # Lymph # (Auto) Teller # (Auto) Eos # (Auto) Seg Neutrophils % Seg Neuts % (Manual) Baso # (Auto) Lymphocytes % (Manual) Monocytes % (Manual) Eosinophils % (Manual) Basophils % (Manual) Seg Neutrophils # Seg Neutrophils # Man Lymphocytes # (Manual) Monocytes # (Manual) Eosinophils # (Manual) Nucleated RBC % Basophils # (Manual) PT INR APTT Heparin Anti-Xa Level ABG pH POC ABG pO2 ABG pO2 ABG HCO3 ABG O2 Saturation ABG Base Excess POC ABG pCO2 ABG Hemoglobin ABG Oxyhemoglobin ABG Chloride ABG Glucose Oxyhemoglobin Sodium Potassium Chloride Carbon Dioxide BUN Creatinine Glucose POC Glucose 142 H 130 H Lactic Acid Calcium Phosphorus Magnesium AST ALT Lactate Dehydrogenase Total Bilirubin Direct Bilirubin CK-MB (CK-2) C-Reactive Protein NT-Pro-B Natriuret Pep Total Protein Albumin Arterial Blood Glucose Urine WBC (Auto) 8.0 H Urine Creatinine 12/03/19 12/03/19 12/04/19 15:50 17:39 00:04 WBC RBC Hgb Hct MCHC RDW MCV MCH Lymph % (Auto) Teller % (Auto) Teller # Eos # Lymph # (Auto) Teller # (Auto) Eos # (Auto) Seg Neutrophils % Seg Neuts % (Manual) Baso # (Auto) Lymphocytes % (Manual) Monocytes % (Manual) Eosinophils % (Manual) Basophils % (Manual) Seg Neutrophils # Seg Neutrophils # Man Lymphocytes # (Manual) Monocytes # (Manual) Eosinophils # (Manual) Nucleated RBC % Basophils # (Manual) PT INR APTT Heparin Anti-Xa Level ABG pH POC ABG pO2 ABG pO2 ABG HCO3 ABG O2 Saturation ABG Base Excess POC ABG pCO2 ABG Hemoglobin ABG Oxyhemoglobin ABG Chloride ABG Glucose Oxyhemoglobin Sodium Potassium Chloride Carbon Dioxide BUN Creatinine Glucose POC Glucose 146 H 133 H Lactic Acid Calcium Phosphorus 2.40 L Magnesium AST ALT Lactate Dehydrogenase Total Bilirubin Direct Bilirubin CK-MB (CK-2) C-Reactive Protein NT-Pro-B Natriuret Pep Total Protein Albumin Arterial Blood Glucose Urine WBC (Auto) Urine Creatinine 12/04/19 12/04/19 12/04/19 03:58 03:58 05:22 WBC 12.5 H RBC Hgb 11.2 L Hct 35.2 L MCHC RDW 16.0 H MCV MCH Lymph % (Auto) Teller % (Auto) 9.6 H Teller # 1.2 H Eos # 0.5 H Lymph # (Auto) Teller # (Auto) Eos # (Auto) Seg Neutrophils % Seg Neuts % (Manual) Baso # (Auto) Lymphocytes % (Manual) Monocytes % (Manual) Eosinophils % (Manual) Basophils % (Manual) Seg Neutrophils # 8.6 H Seg Neutrophils # Man Lymphocytes # (Manual) Monocytes # (Manual) Eosinophils # (Manual) Nucleated RBC % Basophils # (Manual) PT INR APTT Heparin Anti-Xa Level ABG pH POC ABG pO2 ABG pO2 ABG HCO3 ABG O2 Saturation ABG Base Excess POC ABG pCO2 ABG Hemoglobin ABG Oxyhemoglobin ABG Chloride ABG Glucose Oxyhemoglobin Sodium 146 H Potassium Chloride 108.6 H Carbon Dioxide BUN 30 H Creatinine 0.7 L Glucose 121 H POC Glucose 132 H Lactic Acid Calcium Phosphorus Magnesium AST ALT Lactate Dehydrogenase Total Bilirubin Direct Bilirubin CK-MB (CK-2) C-Reactive Protein NT-Pro-B Natriuret Pep Total Protein Albumin Arterial Blood Glucose Urine WBC (Auto) Urine Creatinine 12/04/19 12/04/19 12/05/19 13:26 18:43 00:19 WBC RBC Hgb Hct MCHC RDW MCV MCH Lymph % (Auto) Teller % (Auto) Teller # Eos # Lymph # (Auto) Teller # (Auto) Eos # (Auto) Seg Neutrophils % Seg Neuts % (Manual) Baso # (Auto) Lymphocytes % (Manual) Monocytes % (Manual) Eosinophils % (Manual) Basophils % (Manual) Seg Neutrophils # Seg Neutrophils # Man Lymphocytes # (Manual) Monocytes # (Manual) Eosinophils # (Manual) Nucleated RBC % Basophils # (Manual) PT INR APTT Heparin Anti-Xa Level ABG pH POC ABG pO2 ABG pO2 ABG HCO3 ABG O2 Saturation ABG Base Excess POC ABG pCO2 ABG Hemoglobin ABG Oxyhemoglobin ABG Chloride ABG Glucose Oxyhemoglobin Sodium Potassium Chloride Carbon Dioxide BUN Creatinine Glucose POC Glucose 185 H 156 H 150 H Lactic Acid Calcium Phosphorus Magnesium AST ALT Lactate Dehydrogenase Total Bilirubin Direct Bilirubin CK-MB (CK-2) C-Reactive Protein NT-Pro-B Natriuret Pep Total Protein Albumin Arterial Blood Glucose Urine WBC (Auto) Urine Creatinine 12/05/19 12/05/19 12/05/19 03:37 03:37 05:14 WBC 16.3 H RBC Hgb 11.4 L Hct MCHC RDW 15.6 H MCV MCH Lymph % (Auto) 9.9 L Teller % (Auto) 9.7 H Teller # 1.6 H Eos # Lymph # (Auto) Teller # (Auto) Eos # (Auto) Seg Neutrophils % 78.0 H Seg Neuts % (Manual) Baso # (Auto) Lymphocytes % (Manual) Monocytes % (Manual) Eosinophils % (Manual) Basophils % (Manual) Seg Neutrophils # 12.7 H Seg Neutrophils # Man Lymphocytes # (Manual) Monocytes # (Manual) Eosinophils # (Manual) Nucleated RBC % Basophils # (Manual) PT INR APTT Heparin Anti-Xa Level ABG pH POC ABG pO2 ABG pO2 ABG HCO3 ABG O2 Saturation ABG Base Excess POC ABG pCO2 ABG Hemoglobin ABG Oxyhemoglobin ABG Chloride ABG Glucose Oxyhemoglobin Sodium 146 H Potassium Chloride 107.2 H Carbon Dioxide BUN 27 H Creatinine 0.7 L Glucose 171 H POC Glucose 168 H Lactic Acid Calcium Phosphorus Magnesium AST ALT Lactate Dehydrogenase Total Bilirubin Direct Bilirubin CK-MB (CK-2) C-Reactive Protein NT-Pro-B Natriuret Pep Total Protein Albumin Arterial Blood Glucose Urine WBC (Auto) Urine Creatinine 12/05/19 12/05/19 12/05/19 12:31 18:10 23:58 WBC RBC Hgb Hct MCHC RDW MCV MCH Lymph % (Auto) Teller % (Auto) Teller # Eos # Lymph # (Auto) Teller # (Auto) Eos # (Auto) Seg Neutrophils % Seg Neuts % (Manual) Baso # (Auto) Lymphocytes % (Manual) Monocytes % (Manual) Eosinophils % (Manual) Basophils % (Manual) Seg Neutrophils # Seg Neutrophils # Man Lymphocytes # (Manual) Monocytes # (Manual) Eosinophils # (Manual) Nucleated RBC % Basophils # (Manual) PT INR APTT Heparin Anti-Xa Level ABG pH POC ABG pO2 ABG pO2 ABG HCO3 ABG O2 Saturation ABG Base Excess POC ABG pCO2 ABG Hemoglobin ABG Oxyhemoglobin ABG Chloride ABG Glucose Oxyhemoglobin Sodium Potassium Chloride Carbon Dioxide BUN Creatinine Glucose POC Glucose 159 H 198 H 115 H Lactic Acid Calcium Phosphorus Magnesium AST ALT Lactate Dehydrogenase Total Bilirubin Direct Bilirubin CK-MB (CK-2) C-Reactive Protein NT-Pro-B Natriuret Pep Total Protein Albumin Arterial Blood Glucose Urine WBC (Auto) Urine Creatinine 12/06/19 12/06/19 12/06/19 05:24 05:24 05:25 WBC 14.9 H RBC Hgb 10.8 L Hct 34.0 L MCHC RDW 15.6 H MCV MCH Lymph % (Auto) 10.7 L Teller % (Auto) 8.3 H Teller # 1.2 H Eos # Lymph # (Auto) Teller # (Auto) Eos # (Auto) Seg Neutrophils % 78.7 H Seg Neuts % (Manual) Baso # (Auto) Lymphocytes % (Manual) Monocytes % (Manual) Eosinophils % (Manual) Basophils % (Manual) Seg Neutrophils # 11.7 H Seg Neutrophils # Man Lymphocytes # (Manual) Monocytes # (Manual) Eosinophils # (Manual) Nucleated RBC % Basophils # (Manual) PT INR APTT Heparin Anti-Xa Level ABG pH POC ABG pO2 ABG pO2 ABG HCO3 ABG O2 Saturation ABG Base Excess POC ABG pCO2 ABG Hemoglobin ABG Oxyhemoglobin ABG Chloride ABG Glucose Oxyhemoglobin Sodium 148 H Potassium 5.1 H Chloride 107.6 H Carbon Dioxide BUN 27 H Creatinine 0.7 L Glucose 155 H POC Glucose 157 H Lactic Acid Calcium Phosphorus Magnesium AST ALT Lactate Dehydrogenase Total Bilirubin Direct Bilirubin CK-MB (CK-2) C-Reactive Protein NT-Pro-B Natriuret Pep Total Protein Albumin Arterial Blood Glucose Urine WBC (Auto) Urine Creatinine 12/07/19 12/07/19 12/07/19 00:13 05:34 11:33 WBC RBC Hgb Hct MCHC RDW MCV MCH Lymph % (Auto) Teller % (Auto) Teller # Eos # Lymph # (Auto) Teller # (Auto) Eos # (Auto) Seg Neutrophils % Seg Neuts % (Manual) Baso # (Auto) Lymphocytes % (Manual) Monocytes % (Manual) Eosinophils % (Manual) Basophils % (Manual) Seg Neutrophils # Seg Neutrophils # Man Lymphocytes # (Manual) Monocytes # (Manual) Eosinophils # (Manual) Nucleated RBC % Basophils # (Manual) PT INR APTT Heparin Anti-Xa Level ABG pH POC ABG pO2 ABG pO2 ABG HCO3 ABG O2 Saturation ABG Base Excess POC ABG pCO2 ABG Hemoglobin ABG Oxyhemoglobin ABG Chloride ABG Glucose Oxyhemoglobin Sodium Potassium Chloride Carbon Dioxide BUN Creatinine Glucose POC Glucose 142 H 111 H 169 H Lactic Acid Calcium Phosphorus Magnesium AST ALT Lactate Dehydrogenase Total Bilirubin Direct Bilirubin CK-MB (CK-2) C-Reactive Protein NT-Pro-B Natriuret Pep Total Protein Albumin Arterial Blood Glucose Urine WBC (Auto) Urine Creatinine 12/07/19 12/07/19 12/07/19 12:41 13:25 18:19 WBC 12.4 H RBC 3.53 L Hgb 10.2 L Hct 32.1 L MCHC RDW 15.3 H MCV MCH Lymph % (Auto) 10.6 L Teller % (Auto) 7.8 H Teller # 1.0 H Eos # Lymph # (Auto) Teller # (Auto) Eos # (Auto) Seg Neutrophils % 77.6 H Seg Neuts % (Manual) Baso # (Auto) Lymphocytes % (Manual) Monocytes % (Manual) Eosinophils % (Manual) Basophils % (Manual) Seg Neutrophils # 9.6 H Seg Neutrophils # Man Lymphocytes # (Manual) Monocytes # (Manual) Eosinophils # (Manual) Nucleated RBC % Basophils # (Manual) PT INR APTT Heparin Anti-Xa Level ABG pH POC ABG pO2 ABG pO2 ABG HCO3 ABG O2 Saturation ABG Base Excess POC ABG pCO2 ABG Hemoglobin ABG Oxyhemoglobin ABG Chloride ABG Glucose Oxyhemoglobin Sodium 149 H Potassium Chloride 108.4 H Carbon Dioxide BUN 26 H Creatinine 0.6 L Glucose 149 H POC Glucose 164 H Lactic Acid Calcium Phosphorus Magnesium 2.60 H AST 121 H ALT 145 H Lactate Dehydrogenase Total Bilirubin Direct Bilirubin CK-MB (CK-2) C-Reactive Protein NT-Pro-B Natriuret Pep Total Protein Albumin 2.6 L Arterial Blood Glucose Urine WBC (Auto) Urine Creatinine 12/07/19 12/08/19 12/08/19 22:25 00:02 03:55 WBC 13.3 H RBC 3.40 L Hgb 9.7 L Hct 30.8 L MCHC 31 L RDW 15.5 H MCV MCH Lymph % (Auto) Teller % (Auto) 8.1 H Teller # 1.1 H Eos # Lymph # (Auto) Teller # (Auto) Eos # (Auto) Seg Neutrophils % 73.0 H Seg Neuts % (Manual) Baso # (Auto) Lymphocytes % (Manual) Monocytes % (Manual) Eosinophils % (Manual) Basophils % (Manual) Seg Neutrophils # 9.7 H Seg Neutrophils # Man Lymphocytes # (Manual) Monocytes # (Manual) Eosinophils # (Manual) Nucleated RBC % Basophils # (Manual) PT INR APTT Heparin Anti-Xa Level 0.12 L ABG pH POC ABG pO2 ABG pO2 ABG HCO3 ABG O2 Saturation ABG Base Excess POC ABG pCO2 ABG Hemoglobin ABG Oxyhemoglobin ABG Chloride ABG Glucose Oxyhemoglobin Sodium Potassium Chloride Carbon Dioxide BUN Creatinine Glucose POC Glucose 151 H Lactic Acid Calcium Phosphorus Magnesium AST ALT Lactate Dehydrogenase Total Bilirubin Direct Bilirubin CK-MB (CK-2) C-Reactive Protein NT-Pro-B Natriuret Pep Total Protein Albumin Arterial Blood Glucose Urine WBC (Auto) Urine Creatinine 12/08/19 12/08/19 12/08/19 03:55 05:21 06:01 WBC RBC Hgb Hct MCHC RDW MCV MCH Lymph % (Auto) Teller % (Auto) Teller # Eos # Lymph # (Auto) Teller # (Auto) Eos # (Auto) Seg Neutrophils % Seg Neuts % (Manual) Baso # (Auto) Lymphocytes % (Manual) Monocytes % (Manual) Eosinophils % (Manual) Basophils % (Manual) Seg Neutrophils # Seg Neutrophils # Man Lymphocytes # (Manual) Monocytes # (Manual) Eosinophils # (Manual) Nucleated RBC % Basophils # (Manual) PT INR APTT Heparin Anti-Xa Level 0.20 L ABG pH POC ABG pO2 ABG pO2 ABG HCO3 ABG O2 Saturation ABG Base Excess POC ABG pCO2 ABG Hemoglobin ABG Oxyhemoglobin ABG Chloride ABG Glucose Oxyhemoglobin Sodium 149 H Potassium Chloride 108.0 H Carbon Dioxide BUN 28 H Creatinine 0.6 L Glucose 144 H POC Glucose 143 H Lactic Acid Calcium Phosphorus Magnesium AST 98 H ALT 145 H Lactate Dehydrogenase Total Bilirubin Direct Bilirubin CK-MB (CK-2) C-Reactive Protein NT-Pro-B Natriuret Pep Total Protein 6.0 L Albumin 2.4 L Arterial Blood Glucose Urine WBC (Auto) Urine Creatinine 12/08/19 12/08/19 12/08/19 12:08 18:11 23:53 WBC RBC Hgb Hct MCHC RDW MCV MCH Lymph % (Auto) Teller % (Auto) Teller # Eos # Lymph # (Auto) Teller # (Auto) Eos # (Auto) Seg Neutrophils % Seg Neuts % (Manual) Baso # (Auto) Lymphocytes % (Manual) Monocytes % (Manual) Eosinophils % (Manual) Basophils % (Manual) Seg Neutrophils # Seg Neutrophils # Man Lymphocytes # (Manual) Monocytes # (Manual) Eosinophils # (Manual) Nucleated RBC % Basophils # (Manual) PT INR APTT Heparin Anti-Xa Level ABG pH POC ABG pO2 ABG pO2 ABG HCO3 ABG O2 Saturation ABG Base Excess POC ABG pCO2 ABG Hemoglobin ABG Oxyhemoglobin ABG Chloride ABG Glucose Oxyhemoglobin Sodium Potassium Chloride Carbon Dioxide BUN Creatinine Glucose POC Glucose 172 H 122 H 162 H Lactic Acid Calcium Phosphorus Magnesium AST ALT Lactate Dehydrogenase Total Bilirubin Direct Bilirubin CK-MB (CK-2) C-Reactive Protein NT-Pro-B Natriuret Pep Total Protein Albumin Arterial Blood Glucose Urine WBC (Auto) Urine Creatinine 12/09/19 12/09/19 12/09/19 04:03 04:03 05:53 WBC RBC Hgb 9.1 L Hct 28.9 L MCHC RDW MCV MCH Lymph % (Auto) Teller % (Auto) Teller # Eos # Lymph # (Auto) Teller # (Auto) Eos # (Auto) Seg Neutrophils % Seg Neuts % (Manual) Baso # (Auto) Lymphocytes % (Manual) Monocytes % (Manual) Eosinophils % (Manual) Basophils % (Manual) Seg Neutrophils # Seg Neutrophils # Man Lymphocytes # (Manual) Monocytes # (Manual) Eosinophils # (Manual) Nucleated RBC % Basophils # (Manual) PT INR APTT Heparin Anti-Xa Level 0.15 L ABG pH POC ABG pO2 ABG pO2 ABG HCO3 ABG O2 Saturation ABG Base Excess POC ABG pCO2 ABG Hemoglobin ABG Oxyhemoglobin ABG Chloride ABG Glucose Oxyhemoglobin Sodium Potassium Chloride Carbon Dioxide BUN Creatinine Glucose POC Glucose 124 H Lactic Acid Calcium Phosphorus Magnesium AST ALT Lactate Dehydrogenase Total Bilirubin Direct Bilirubin CK-MB (CK-2) C-Reactive Protein NT-Pro-B Natriuret Pep Total Protein Albumin Arterial Blood Glucose Urine WBC (Auto) Urine Creatinine 12/09/19 12/09/19 12/10/19 09:43 12:41 00:13 WBC RBC Hgb Hct MCHC RDW MCV MCH Lymph % (Auto) Teller % (Auto) Teller # Eos # Lymph # (Auto) Teller # (Auto) Eos # (Auto) Seg Neutrophils % Seg Neuts % (Manual) Baso # (Auto) Lymphocytes % (Manual) Monocytes % (Manual) Eosinophils % (Manual) Basophils % (Manual) Seg Neutrophils # Seg Neutrophils # Man Lymphocytes # (Manual) Monocytes # (Manual) Eosinophils # (Manual) Nucleated RBC % Basophils # (Manual) PT INR APTT Heparin Anti-Xa Level ABG pH POC ABG pO2 ABG pO2 ABG HCO3 ABG O2 Saturation ABG Base Excess POC ABG pCO2 ABG Hemoglobin ABG Oxyhemoglobin ABG Chloride ABG Glucose Oxyhemoglobin Sodium Potassium Chloride Carbon Dioxide BUN 25 H Creatinine 0.6 L Glucose 131 H POC Glucose 109 H 120 H Lactic Acid Calcium Phosphorus Magnesium AST ALT Lactate Dehydrogenase Total Bilirubin Direct Bilirubin CK-MB (CK-2) C-Reactive Protein NT-Pro-B Natriuret Pep Total Protein Albumin Arterial Blood Glucose Urine WBC (Auto) Urine Creatinine 12/10/19 12/10/19 12/10/19 04:14 04:14 12:00 WBC 13.3 H RBC 3.34 L Hgb 9.6 L Hct 30.4 L MCHC RDW 15.4 H MCV MCH Lymph % (Auto) Teller % (Auto) Teller # Eos # Lymph # (Auto) Teller # (Auto) Eos # (Auto) Seg Neutrophils % Seg Neuts % (Manual) 75.0 H Baso # (Auto) Lymphocytes % (Manual) 13.0 L Monocytes % (Manual) 8.0 H Eosinophils % (Manual) Basophils % (Manual) 2.0 H Seg Neutrophils # Seg Neutrophils # Man 10.0 H Lymphocytes # (Manual) Monocytes # (Manual) 1.1 H Eosinophils # (Manual) Nucleated RBC % Basophils # (Manual) 0.3 H PT INR APTT Heparin Anti-Xa Level ABG pH POC ABG pO2 ABG pO2 ABG HCO3 ABG O2 Saturation ABG Base Excess POC ABG pCO2 ABG Hemoglobin ABG Oxyhemoglobin ABG Chloride ABG Glucose Oxyhemoglobin Sodium 147 H Potassium Chloride 108.3 H Carbon Dioxide BUN 21 H Creatinine 0.6 L Glucose 104 H POC Glucose 133 H Lactic Acid Calcium Phosphorus Magnesium AST ALT Lactate Dehydrogenase Total Bilirubin Direct Bilirubin CK-MB (CK-2) C-Reactive Protein NT-Pro-B Natriuret Pep Total Protein Albumin Arterial Blood Glucose Urine WBC (Auto) Urine Creatinine 12/10/19 12/10/19 12/11/19 18:44 21:20 00:08 WBC 14.9 H RBC 3.36 L Hgb 9.6 L Hct 30.5 L MCHC RDW 15.4 H MCV MCH Lymph % (Auto) Teller % (Auto) Teller # Eos # Lymph # (Auto) Teller # (Auto) Eos # (Auto) Seg Neutrophils % Seg Neuts % (Manual) Baso # (Auto) Lymphocytes % (Manual) Monocytes % (Manual) Eosinophils % (Manual) Basophils % (Manual) Seg Neutrophils # Seg Neutrophils # Man Lymphocytes # (Manual) Monocytes # (Manual) Eosinophils # (Manual) Nucleated RBC % Basophils # (Manual) PT INR APTT Heparin Anti-Xa Level ABG pH POC ABG pO2 ABG pO2 ABG HCO3 ABG O2 Saturation ABG Base Excess POC ABG pCO2 ABG Hemoglobin ABG Oxyhemoglobin ABG Chloride ABG Glucose Oxyhemoglobin Sodium Potassium Chloride Carbon Dioxide BUN Creatinine Glucose POC Glucose 119 H 134 H Lactic Acid Calcium Phosphorus Magnesium AST ALT Lactate Dehydrogenase Total Bilirubin Direct Bilirubin CK-MB (CK-2) C-Reactive Protein NT-Pro-B Natriuret Pep Total Protein Albumin Arterial Blood Glucose Urine WBC (Auto) Urine Creatinine 12/11/19 12/11/19 12/11/19 03:54 07:28 08:36 WBC 11.9 H RBC 3.25 L Hgb 9.6 L Hct 29.2 L MCHC RDW 15.7 H MCV MCH Lymph % (Auto) Teller % (Auto) Teller # Eos # Lymph # (Auto) Teller # (Auto) Eos # (Auto) Seg Neutrophils % Seg Neuts % (Manual) Baso # (Auto) Lymphocytes % (Manual) Monocytes % (Manual) Eosinophils % (Manual) Basophils % (Manual) Seg Neutrophils # Seg Neutrophils # Man Lymphocytes # (Manual) Monocytes # (Manual) Eosinophils # (Manual) Nucleated RBC % Basophils # (Manual) PT INR APTT Heparin Anti-Xa Level 0.10 L 0.16 L ABG pH POC ABG pO2 ABG pO2 ABG HCO3 ABG O2 Saturation ABG Base Excess POC ABG pCO2 ABG Hemoglobin ABG Oxyhemoglobin ABG Chloride ABG Glucose Oxyhemoglobin Sodium Potassium Chloride Carbon Dioxide BUN Creatinine Glucose POC Glucose Lactic Acid Calcium Phosphorus Magnesium AST ALT Lactate Dehydrogenase Total Bilirubin Direct Bilirubin CK-MB (CK-2) C-Reactive Protein NT-Pro-B Natriuret Pep Total Protein Albumin Arterial Blood Glucose Urine WBC (Auto) Urine Creatinine 12/11/19 12/11/19 12/11/19 08:36 11:45 17:15 WBC RBC Hgb Hct MCHC RDW MCV MCH Lymph % (Auto) Teller % (Auto) Teller # Eos # Lymph # (Auto) Teller # (Auto) Eos # (Auto) Seg Neutrophils % Seg Neuts % (Manual) Baso # (Auto) Lymphocytes % (Manual) Monocytes % (Manual) Eosinophils % (Manual) Basophils % (Manual) Seg Neutrophils # Seg Neutrophils # Man Lymphocytes # (Manual) Monocytes # (Manual) Eosinophils # (Manual) Nucleated RBC % Basophils # (Manual) PT INR APTT Heparin Anti-Xa Level ABG pH POC ABG pO2 ABG pO2 ABG HCO3 ABG O2 Saturation ABG Base Excess POC ABG pCO2 ABG Hemoglobin ABG Oxyhemoglobin ABG Chloride ABG Glucose Oxyhemoglobin Sodium Potassium Chloride Carbon Dioxide BUN Creatinine 0.5 L Glucose 128 H POC Glucose 136 H 109 H Lactic Acid Calcium Phosphorus Magnesium AST ALT Lactate Dehydrogenase Total Bilirubin Direct Bilirubin CK-MB (CK-2) C-Reactive Protein NT-Pro-B Natriuret Pep Total Protein Albumin Arterial Blood Glucose Urine WBC (Auto) Urine Creatinine 12/12/19 12/12/19 12/12/19 00:03 05:53 05:53 WBC RBC Hgb 8.8 L Hct 27.6 L MCHC RDW MCV MCH Lymph % (Auto) Teller % (Auto) Teller # Eos # Lymph # (Auto) Teller # (Auto) Eos # (Auto) Seg Neutrophils % Seg Neuts % (Manual) Baso # (Auto) Lymphocytes % (Manual) Monocytes % (Manual) Eosinophils % (Manual) Basophils % (Manual) Seg Neutrophils # Seg Neutrophils # Man Lymphocytes # (Manual) Monocytes # (Manual) Eosinophils # (Manual) Nucleated RBC % Basophils # (Manual) PT INR APTT Heparin Anti-Xa Level 0.22 L ABG pH POC ABG pO2 ABG pO2 ABG HCO3 ABG O2 Saturation ABG Base Excess POC ABG pCO2 ABG Hemoglobin ABG Oxyhemoglobin ABG Chloride ABG Glucose Oxyhemoglobin Sodium Potassium Chloride Carbon Dioxide BUN Creatinine Glucose POC Glucose 116 H Lactic Acid Calcium Phosphorus Magnesium AST ALT Lactate Dehydrogenase Total Bilirubin Direct Bilirubin CK-MB (CK-2) C-Reactive Protein NT-Pro-B Natriuret Pep Total Protein Albumin Arterial Blood Glucose Urine WBC (Auto) Urine Creatinine 12/12/19 12/12/19 12/12/19 09:38 12:18 17:44 WBC RBC Hgb Hct MCHC RDW MCV MCH Lymph % (Auto) Teller % (Auto) Teller # Eos # Lymph # (Auto) Teller # (Auto) Eos # (Auto) Seg Neutrophils % Seg Neuts % (Manual) Baso # (Auto) Lymphocytes % (Manual) Monocytes % (Manual) Eosinophils % (Manual) Basophils % (Manual) Seg Neutrophils # Seg Neutrophils # Man Lymphocytes # (Manual) Monocytes # (Manual) Eosinophils # (Manual) Nucleated RBC % Basophils # (Manual) PT INR APTT Heparin Anti-Xa Level ABG pH POC ABG pO2 ABG pO2 ABG HCO3 ABG O2 Saturation ABG Base Excess POC ABG pCO2 ABG Hemoglobin ABG Oxyhemoglobin ABG Chloride ABG Glucose Oxyhemoglobin Sodium Potassium Chloride Carbon Dioxide BUN Creatinine Glucose POC Glucose 115 H 146 H 146 H Lactic Acid Calcium Phosphorus Magnesium AST ALT Lactate Dehydrogenase Total Bilirubin Direct Bilirubin CK-MB (CK-2) C-Reactive Protein NT-Pro-B Natriuret Pep Total Protein Albumin Arterial Blood Glucose Urine WBC (Auto) Urine Creatinine 12/12/19 12/13/19 12/13/19 23:33 05:32 05:32 WBC 13.1 H RBC 3.27 L Hgb 9.5 L Hct 29.3 L MCHC RDW 15.6 H MCV MCH Lymph % (Auto) Teller % (Auto) Teller # Eos # Lymph # (Auto) Teller # (Auto) Eos # (Auto) Seg Neutrophils % Seg Neuts % (Manual) 74.0 H Baso # (Auto) Lymphocytes % (Manual) 8.0 L Monocytes % (Manual) 9.0 H Eosinophils % (Manual) 5.0 H Basophils % (Manual) Seg Neutrophils # Seg Neutrophils # Man 9.7 H Lymphocytes # (Manual) 1.0 L Monocytes # (Manual) 1.2 H Eosinophils # (Manual) 0.7 H Nucleated RBC % Basophils # (Manual) PT INR APTT Heparin Anti-Xa Level 0.20 L ABG pH POC ABG pO2 ABG pO2 ABG HCO3 ABG O2 Saturation ABG Base Excess POC ABG pCO2 ABG Hemoglobin ABG Oxyhemoglobin ABG Chloride ABG Glucose Oxyhemoglobin Sodium Potassium Chloride Carbon Dioxide BUN Creatinine Glucose POC Glucose 126 H Lactic Acid Calcium Phosphorus Magnesium AST ALT Lactate Dehydrogenase Total Bilirubin Direct Bilirubin CK-MB (CK-2) C-Reactive Protein NT-Pro-B Natriuret Pep Total Protein Albumin Arterial Blood Glucose Urine WBC (Auto) Urine Creatinine 12/13/19 12/13/19 12/13/19 05:32 05:46 11:57 WBC RBC Hgb Hct MCHC RDW MCV MCH Lymph % (Auto) Teller % (Auto) Teller # Eos # Lymph # (Auto) Teller # (Auto) Eos # (Auto) Seg Neutrophils % Seg Neuts % (Manual) Baso # (Auto) Lymphocytes % (Manual) Monocytes % (Manual) Eosinophils % (Manual) Basophils % (Manual) Seg Neutrophils # Seg Neutrophils # Man Lymphocytes # (Manual) Monocytes # (Manual) Eosinophils # (Manual) Nucleated RBC % Basophils # (Manual) PT INR APTT Heparin Anti-Xa Level ABG pH POC ABG pO2 ABG pO2 ABG HCO3 ABG O2 Saturation ABG Base Excess POC ABG pCO2 ABG Hemoglobin ABG Oxyhemoglobin ABG Chloride ABG Glucose Oxyhemoglobin Sodium Potassium Chloride Carbon Dioxide 31 H BUN Creatinine 0.6 L Glucose 114 H POC Glucose 118 H 133 H Lactic Acid Calcium Phosphorus Magnesium AST ALT Lactate Dehydrogenase Total Bilirubin Direct Bilirubin CK-MB (CK-2) C-Reactive Protein NT-Pro-B Natriuret Pep Total Protein Albumin Arterial Blood Glucose Urine WBC (Auto) Urine Creatinine 12/13/19 12/13/19 12/14/19 17:44 23:46 05:32 WBC RBC Hgb Hct MCHC RDW MCV MCH Lymph % (Auto) Teller % (Auto) Teller # Eos # Lymph # (Auto) Teller # (Auto) Eos # (Auto) Seg Neutrophils % Seg Neuts % (Manual) Baso # (Auto) Lymphocytes % (Manual) Monocytes % (Manual) Eosinophils % (Manual) Basophils % (Manual) Seg Neutrophils # Seg Neutrophils # Man Lymphocytes # (Manual) Monocytes # (Manual) Eosinophils # (Manual) Nucleated RBC % Basophils # (Manual) PT INR APTT Heparin Anti-Xa Level ABG pH POC ABG pO2 ABG pO2 ABG HCO3 ABG O2 Saturation ABG Base Excess POC ABG pCO2 ABG Hemoglobin ABG Oxyhemoglobin ABG Chloride ABG Glucose Oxyhemoglobin Sodium Potassium Chloride Carbon Dioxide BUN Creatinine Glucose POC Glucose 161 H 126 H 139 H Lactic Acid Calcium Phosphorus Magnesium AST ALT Lactate Dehydrogenase Total Bilirubin Direct Bilirubin CK-MB (CK-2) C-Reactive Protein NT-Pro-B Natriuret Pep Total Protein Albumin Arterial Blood Glucose Urine WBC (Auto) Urine Creatinine 12/14/19 12/14/19 12/14/19 06:03 06:03 09:37 WBC RBC Hgb 9.6 L Hct 30.4 L MCHC RDW MCV MCH Lymph % (Auto) Teller % (Auto) Teller # Eos # Lymph # (Auto) Teller # (Auto) Eos # (Auto) Seg Neutrophils % Seg Neuts % (Manual) Baso # (Auto) Lymphocytes % (Manual) Monocytes % (Manual) Eosinophils % (Manual) Basophils % (Manual) Seg Neutrophils # Seg Neutrophils # Man Lymphocytes # (Manual) Monocytes # (Manual) Eosinophils # (Manual) Nucleated RBC % Basophils # (Manual) PT INR APTT Heparin Anti-Xa Level 0.24 L ABG pH POC ABG pO2 ABG pO2 ABG HCO3 ABG O2 Saturation ABG Base Excess POC ABG pCO2 ABG Hemoglobin ABG Oxyhemoglobin ABG Chloride ABG Glucose Oxyhemoglobin Sodium Potassium Chloride Carbon Dioxide BUN Creatinine 0.6 L Glucose 162 H POC Glucose Lactic Acid Calcium Phosphorus Magnesium AST 71 H ALT 118 H Lactate Dehydrogenase Total Bilirubin Direct Bilirubin CK-MB (CK-2) C-Reactive Protein NT-Pro-B Natriuret Pep Total Protein 6.2 L Albumin 2.3 L Arterial Blood Glucose Urine WBC (Auto) Urine Creatinine 12/14/19 12/14/19 12/15/19 12:06 18:18 00:19 WBC RBC Hgb Hct MCHC RDW MCV MCH Lymph % (Auto) Teller % (Auto) Teller # Eos # Lymph # (Auto) Teller # (Auto) Eos # (Auto) Seg Neutrophils % Seg Neuts % (Manual) Baso # (Auto) Lymphocytes % (Manual) Monocytes % (Manual) Eosinophils % (Manual) Basophils % (Manual) Seg Neutrophils # Seg Neutrophils # Man Lymphocytes # (Manual) Monocytes # (Manual) Eosinophils # (Manual) Nucleated RBC % Basophils # (Manual) PT INR APTT Heparin Anti-Xa Level ABG pH POC ABG pO2 ABG pO2 ABG HCO3 ABG O2 Saturation ABG Base Excess POC ABG pCO2 ABG Hemoglobin ABG Oxyhemoglobin ABG Chloride ABG Glucose Oxyhemoglobin Sodium Potassium Chloride Carbon Dioxide BUN Creatinine Glucose POC Glucose 147 H 166 H 123 H Lactic Acid Calcium Phosphorus Magnesium AST ALT Lactate Dehydrogenase Total Bilirubin Direct Bilirubin CK-MB (CK-2) C-Reactive Protein NT-Pro-B Natriuret Pep Total Protein Albumin Arterial Blood Glucose Urine WBC (Auto) Urine Creatinine 12/15/19 12/15/19 12/15/19 05:28 05:29 05:29 WBC 14.9 H RBC 3.19 L Hgb 9.1 L Hct 28.7 L MCHC RDW 16.0 H MCV MCH Lymph % (Auto) Teller % (Auto) Teller # Eos # Lymph # (Auto) Teller # (Auto) Eos # (Auto) Seg Neutrophils % Seg Neuts % (Manual) Baso # (Auto) Lymphocytes % (Manual) Monocytes % (Manual) Eosinophils % (Manual) Basophils % (Manual) Seg Neutrophils # Seg Neutrophils # Man Lymphocytes # (Manual) Monocytes # (Manual) Eosinophils # (Manual) Nucleated RBC % Basophils # (Manual) PT INR APTT Heparin Anti-Xa Level 0.19 L ABG pH POC ABG pO2 ABG pO2 ABG HCO3 ABG O2 Saturation ABG Base Excess POC ABG pCO2 ABG Hemoglobin ABG Oxyhemoglobin ABG Chloride ABG Glucose Oxyhemoglobin Sodium Potassium Chloride Carbon Dioxide BUN Creatinine 0.6 L Glucose 110 H POC Glucose Lactic Acid Calcium Phosphorus Magnesium AST ALT Lactate Dehydrogenase Total Bilirubin Direct Bilirubin CK-MB (CK-2) C-Reactive Protein NT-Pro-B Natriuret Pep Total Protein Albumin Arterial Blood Glucose Urine WBC (Auto) Urine Creatinine 12/15/19 12/15/19 12/15/19 05:53 11:50 17:26 WBC RBC Hgb Hct MCHC RDW MCV MCH Lymph % (Auto) Teller % (Auto) Teller # Eos # Lymph # (Auto) Teller # (Auto) Eos # (Auto) Seg Neutrophils % Seg Neuts % (Manual) Baso # (Auto) Lymphocytes % (Manual) Monocytes % (Manual) Eosinophils % (Manual) Basophils % (Manual) Seg Neutrophils # Seg Neutrophils # Man Lymphocytes # (Manual) Monocytes # (Manual) Eosinophils # (Manual) Nucleated RBC % Basophils # (Manual) PT INR APTT Heparin Anti-Xa Level ABG pH POC ABG pO2 ABG pO2 ABG HCO3 ABG O2 Saturation ABG Base Excess POC ABG pCO2 ABG Hemoglobin ABG Oxyhemoglobin ABG Chloride ABG Glucose Oxyhemoglobin Sodium Potassium Chloride Carbon Dioxide BUN Creatinine Glucose POC Glucose 119 H 132 H 128 H Lactic Acid Calcium Phosphorus Magnesium AST ALT Lactate Dehydrogenase Total Bilirubin Direct Bilirubin CK-MB (CK-2) C-Reactive Protein NT-Pro-B Natriuret Pep Total Protein Albumin Arterial Blood Glucose Urine WBC (Auto) Urine Creatinine 12/15/19 12/16/19 12/16/19 23:11 05:30 05:46 WBC RBC Hgb 8.8 L Hct 27.9 L MCHC RDW MCV MCH Lymph % (Auto) Teller % (Auto) Teller # Eos # Lymph # (Auto) Teller # (Auto) Eos # (Auto) Seg Neutrophils % Seg Neuts % (Manual) Baso # (Auto) Lymphocytes % (Manual) Monocytes % (Manual) Eosinophils % (Manual) Basophils % (Manual) Seg Neutrophils # Seg Neutrophils # Man Lymphocytes # (Manual) Monocytes # (Manual) Eosinophils # (Manual) Nucleated RBC % Basophils # (Manual) PT INR APTT Heparin Anti-Xa Level ABG pH POC ABG pO2 ABG pO2 ABG HCO3 ABG O2 Saturation ABG Base Excess POC ABG pCO2 ABG Hemoglobin ABG Oxyhemoglobin ABG Chloride ABG Glucose Oxyhemoglobin Sodium Potassium Chloride Carbon Dioxide BUN Creatinine Glucose POC Glucose 150 H 134 H Lactic Acid Calcium Phosphorus Magnesium AST ALT Lactate Dehydrogenase Total Bilirubin Direct Bilirubin CK-MB (CK-2) C-Reactive Protein NT-Pro-B Natriuret Pep Total Protein Albumin Arterial Blood Glucose Urine WBC (Auto) Urine Creatinine 12/16/19 12/16/19 12/16/19 05:46 05:46 11:44 WBC RBC Hgb Hct MCHC RDW MCV MCH Lymph % (Auto) Teller % (Auto) Teller # Eos # Lymph # (Auto) Teller # (Auto) Eos # (Auto) Seg Neutrophils % Seg Neuts % (Manual) Baso # (Auto) Lymphocytes % (Manual) Monocytes % (Manual) Eosinophils % (Manual) Basophils % (Manual) Seg Neutrophils # Seg Neutrophils # Man Lymphocytes # (Manual) Monocytes # (Manual) Eosinophils # (Manual) Nucleated RBC % Basophils # (Manual) PT INR APTT Heparin Anti-Xa Level 0.20 L ABG pH POC ABG pO2 ABG pO2 ABG HCO3 ABG O2 Saturation ABG Base Excess POC ABG pCO2 ABG Hemoglobin ABG Oxyhemoglobin ABG Chloride ABG Glucose Oxyhemoglobin Sodium Potassium Chloride Carbon Dioxide 31 H BUN Creatinine 0.5 L Glucose 147 H POC Glucose 164 H Lactic Acid Calcium Phosphorus Magnesium AST ALT Lactate Dehydrogenase Total Bilirubin Direct Bilirubin CK-MB (CK-2) C-Reactive Protein NT-Pro-B Natriuret Pep Total Protein Albumin Arterial Blood Glucose Urine WBC (Auto) Urine Creatinine 12/16/19 12/16/19 12/17/19 17:17 23:49 05:30 WBC 13.9 H RBC 3.27 L Hgb 9.4 L Hct 29.2 L MCHC RDW 16.0 H MCV MCH Lymph % (Auto) Teller % (Auto) 8.8 H Teller # Eos # Lymph # (Auto) Teller # (Auto) 1.2 H Eos # (Auto) 0.5 H Seg Neutrophils % 70.5 H Seg Neuts % (Manual) Baso # (Auto) 0.2 H Lymphocytes % (Manual) Monocytes % (Manual) Eosinophils % (Manual) Basophils % (Manual) Seg Neutrophils # 9.8 H Seg Neutrophils # Man Lymphocytes # (Manual) Monocytes # (Manual) Eosinophils # (Manual) Nucleated RBC % Basophils # (Manual) PT INR APTT Heparin Anti-Xa Level ABG pH POC ABG pO2 ABG pO2 ABG HCO3 ABG O2 Saturation ABG Base Excess POC ABG pCO2 ABG Hemoglobin ABG Oxyhemoglobin ABG Chloride ABG Glucose Oxyhemoglobin Sodium Potassium Chloride Carbon Dioxide BUN Creatinine Glucose POC Glucose 162 H 144 H Lactic Acid Calcium Phosphorus Magnesium AST ALT Lactate Dehydrogenase Total Bilirubin Direct Bilirubin CK-MB (CK-2) C-Reactive Protein NT-Pro-B Natriuret Pep Total Protein Albumin Arterial Blood Glucose Urine WBC (Auto) Urine Creatinine 12/17/19 12/17/19 12/17/19 05:30 06:06 11:50 WBC RBC Hgb Hct MCHC RDW MCV MCH Lymph % (Auto) Teller % (Auto) Teller # Eos # Lymph # (Auto) Teller # (Auto) Eos # (Auto) Seg Neutrophils % Seg Neuts % (Manual) Baso # (Auto) Lymphocytes % (Manual) Monocytes % (Manual) Eosinophils % (Manual) Basophils % (Manual) Seg Neutrophils # Seg Neutrophils # Man Lymphocytes # (Manual) Monocytes # (Manual) Eosinophils # (Manual) Nucleated RBC % Basophils # (Manual) PT INR APTT Heparin Anti-Xa Level ABG pH POC ABG pO2 ABG pO2 ABG HCO3 ABG O2 Saturation ABG Base Excess POC ABG pCO2 ABG Hemoglobin ABG Oxyhemoglobin ABG Chloride ABG Glucose Oxyhemoglobin Sodium Potassium Chloride 97.4 L Carbon Dioxide 32 H BUN Creatinine 0.5 L Glucose 135 H POC Glucose 151 H 140 H Lactic Acid Calcium Phosphorus Magnesium AST ALT Lactate Dehydrogenase Total Bilirubin Direct Bilirubin CK-MB (CK-2) C-Reactive Protein NT-Pro-B Natriuret Pep Total Protein Albumin Arterial Blood Glucose Urine WBC (Auto) Urine Creatinine 12/17/19 12/17/19 12/18/19 17:50 23:46 05:17 WBC RBC Hgb 8.8 L Hct 28.0 L MCHC RDW MCV MCH Lymph % (Auto) Teller % (Auto) Teller # Eos # Lymph # (Auto) Teller # (Auto) Eos # (Auto) Seg Neutrophils % Seg Neuts % (Manual) Baso # (Auto) Lymphocytes % (Manual) Monocytes % (Manual) Eosinophils % (Manual) Basophils % (Manual) Seg Neutrophils # Seg Neutrophils # Man Lymphocytes # (Manual) Monocytes # (Manual) Eosinophils # (Manual) Nucleated RBC % Basophils # (Manual) PT INR APTT Heparin Anti-Xa Level ABG pH POC ABG pO2 ABG pO2 ABG HCO3 ABG O2 Saturation ABG Base Excess POC ABG pCO2 ABG Hemoglobin ABG Oxyhemoglobin ABG Chloride ABG Glucose Oxyhemoglobin Sodium Potassium Chloride Carbon Dioxide BUN Creatinine Glucose POC Glucose 158 H 150 H Lactic Acid Calcium Phosphorus Magnesium AST ALT Lactate Dehydrogenase Total Bilirubin Direct Bilirubin CK-MB (CK-2) C-Reactive Protein NT-Pro-B Natriuret Pep Total Protein Albumin Arterial Blood Glucose Urine WBC (Auto) Urine Creatinine 12/18/19 12/18/19 12/18/19 05:17 05:49 11:12 WBC RBC Hgb Hct MCHC RDW MCV MCH Lymph % (Auto) Teller % (Auto) Teller # Eos # Lymph # (Auto) Teller # (Auto) Eos # (Auto) Seg Neutrophils % Seg Neuts % (Manual) Baso # (Auto) Lymphocytes % (Manual) Monocytes % (Manual) Eosinophils % (Manual) Basophils % (Manual) Seg Neutrophils # Seg Neutrophils # Man Lymphocytes # (Manual) Monocytes # (Manual) Eosinophils # (Manual) Nucleated RBC % Basophils # (Manual) PT INR APTT Heparin Anti-Xa Level 0.16 L ABG pH POC ABG pO2 ABG pO2 ABG HCO3 ABG O2 Saturation ABG Base Excess POC ABG pCO2 ABG Hemoglobin ABG Oxyhemoglobin ABG Chloride ABG Glucose Oxyhemoglobin Sodium Potassium Chloride Carbon Dioxide BUN Creatinine Glucose POC Glucose 127 H 191 H Lactic Acid Calcium Phosphorus Magnesium AST ALT Lactate Dehydrogenase Total Bilirubin Direct Bilirubin CK-MB (CK-2) C-Reactive Protein NT-Pro-B Natriuret Pep Total Protein Albumin Arterial Blood Glucose Urine WBC (Auto) Urine Creatinine 12/18/19 12/18/19 12/19/19 17:03 20:16 00:08 WBC RBC Hgb Hct MCHC RDW MCV MCH Lymph % (Auto) Teller % (Auto) Teller # Eos # Lymph # (Auto) Teller # (Auto) Eos # (Auto) Seg Neutrophils % Seg Neuts % (Manual) Baso # (Auto) Lymphocytes % (Manual) Monocytes % (Manual) Eosinophils % (Manual) Basophils % (Manual) Seg Neutrophils # Seg Neutrophils # Man Lymphocytes # (Manual) Monocytes # (Manual) Eosinophils # (Manual) Nucleated RBC % Basophils # (Manual) PT INR APTT Heparin Anti-Xa Level ABG pH POC ABG pO2 ABG pO2 ABG HCO3 ABG O2 Saturation ABG Base Excess POC ABG pCO2 ABG Hemoglobin ABG Oxyhemoglobin ABG Chloride ABG Glucose Oxyhemoglobin Sodium Potassium Chloride Carbon Dioxide BUN Creatinine Glucose POC Glucose 133 H 128 H 129 H Lactic Acid Calcium Phosphorus Magnesium AST ALT Lactate Dehydrogenase Total Bilirubin Direct Bilirubin CK-MB (CK-2) C-Reactive Protein NT-Pro-B Natriuret Pep Total Protein Albumin Arterial Blood Glucose Urine WBC (Auto) Urine Creatinine 12/19/19 12/19/19 12/19/19 04:45 04:45 05:35 WBC RBC Hgb Hct MCHC RDW MCV MCH Lymph % (Auto) Teller % (Auto) Teller # Eos # Lymph # (Auto) Teller # (Auto) Eos # (Auto) Seg Neutrophils % Seg Neuts % (Manual) Baso # (Auto) Lymphocytes % (Manual) Monocytes % (Manual) Eosinophils % (Manual) Basophils % (Manual) Seg Neutrophils # Seg Neutrophils # Man Lymphocytes # (Manual) Monocytes # (Manual) Eosinophils # (Manual) Nucleated RBC % Basophils # (Manual) PT INR APTT Heparin Anti-Xa Level 0.17 L ABG pH POC ABG pO2 ABG pO2 ABG HCO3 ABG O2 Saturation ABG Base Excess POC ABG pCO2 ABG Hemoglobin ABG Oxyhemoglobin ABG Chloride ABG Glucose Oxyhemoglobin Sodium Potassium Chloride Carbon Dioxide BUN Creatinine Glucose POC Glucose 120 H Lactic Acid Calcium Phosphorus Magnesium AST ALT Lactate Dehydrogenase 228 H Total Bilirubin Direct Bilirubin CK-MB (CK-2) C-Reactive Protein NT-Pro-B Natriuret Pep Total Protein Albumin Arterial Blood Glucose Urine WBC (Auto) Urine Creatinine 12/19/19 12/19/19 12/19/19 09:20 11:32 11:32 WBC 14.6 H RBC 3.08 L Hgb 9.0 L Hct 26.8 L MCHC RDW 15.9 H MCV MCH Lymph % (Auto) Teller % (Auto) Teller # Eos # Lymph # (Auto) Teller # (Auto) Eos # (Auto) Seg Neutrophils % Seg Neuts % (Manual) 82.0 H Baso # (Auto) Lymphocytes % (Manual) 10.0 L Monocytes % (Manual) Eosinophils % (Manual) Basophils % (Manual) Seg Neutrophils # Seg Neutrophils # Man 12.0 H Lymphocytes # (Manual) Monocytes # (Manual) 0.9 H Eosinophils # (Manual) Nucleated RBC % 1.0 H Basophils # (Manual) PT INR APTT Heparin Anti-Xa Level ABG pH 7.451 H POC ABG pO2 ABG pO2 62.6 L ABG HCO3 33.2 H ABG O2 Saturation 93.8 L ABG Base Excess 8.3 H POC ABG pCO2 ABG Hemoglobin 8.3 L ABG Oxyhemoglobin ABG Chloride ABG Glucose Oxyhemoglobin 91.9 L Sodium Potassium Chloride 95.0 L Carbon Dioxide 33 H BUN 22 H Creatinine 0.6 L Glucose 150 H POC Glucose Lactic Acid Calcium Phosphorus Magnesium AST ALT Lactate Dehydrogenase Total Bilirubin Direct Bilirubin CK-MB (CK-2) C-Reactive Protein NT-Pro-B Natriuret Pep Total Protein 6.2 L Albumin 2.4 L Arterial Blood Glucose Urine WBC (Auto) Urine Creatinine 12/19/19 12/19/19 12/20/19 11:56 18:17 00:09 WBC RBC Hgb Hct MCHC RDW MCV MCH Lymph % (Auto) Teller % (Auto) Teller # Eos # Lymph # (Auto) Teller # (Auto) Eos # (Auto) Seg Neutrophils % Seg Neuts % (Manual) Baso # (Auto) Lymphocytes % (Manual) Monocytes % (Manual) Eosinophils % (Manual) Basophils % (Manual) Seg Neutrophils # Seg Neutrophils # Man Lymphocytes # (Manual) Monocytes # (Manual) Eosinophils # (Manual) Nucleated RBC % Basophils # (Manual) PT INR APTT Heparin Anti-Xa Level ABG pH POC ABG pO2 ABG pO2 ABG HCO3 ABG O2 Saturation ABG Base Excess POC ABG pCO2 ABG Hemoglobin ABG Oxyhemoglobin ABG Chloride ABG Glucose Oxyhemoglobin Sodium Potassium Chloride Carbon Dioxide BUN Creatinine Glucose POC Glucose 156 H 156 H 155 H Lactic Acid Calcium Phosphorus Magnesium AST ALT Lactate Dehydrogenase Total Bilirubin Direct Bilirubin CK-MB (CK-2) C-Reactive Protein NT-Pro-B Natriuret Pep Total Protein Albumin Arterial Blood Glucose Urine WBC (Auto) Urine Creatinine 12/20/19 12/20/19 12/20/19 05:26 06:02 18:17 WBC RBC Hgb Hct MCHC RDW MCV MCH Lymph % (Auto) Teller % (Auto) Teller # Eos # Lymph # (Auto) Teller # (Auto) Eos # (Auto) Seg Neutrophils % Seg Neuts % (Manual) Baso # (Auto) Lymphocytes % (Manual) Monocytes % (Manual) Eosinophils % (Manual) Basophils % (Manual) Seg Neutrophils # Seg Neutrophils # Man Lymphocytes # (Manual) Monocytes # (Manual) Eosinophils # (Manual) Nucleated RBC % Basophils # (Manual) PT INR APTT Heparin Anti-Xa Level 0.19 L ABG pH POC ABG pO2 ABG pO2 ABG HCO3 ABG O2 Saturation ABG Base Excess POC ABG pCO2 ABG Hemoglobin ABG Oxyhemoglobin ABG Chloride ABG Glucose Oxyhemoglobin Sodium Potassium Chloride Carbon Dioxide BUN Creatinine Glucose POC Glucose 137 H 128 H Lactic Acid Calcium Phosphorus Magnesium AST ALT Lactate Dehydrogenase Total Bilirubin Direct Bilirubin CK-MB (CK-2) C-Reactive Protein NT-Pro-B Natriuret Pep Total Protein Albumin Arterial Blood Glucose Urine WBC (Auto) Urine Creatinine 12/20/19 12/21/19 12/21/19 23:34 05:31 05:31 WBC 12.7 H RBC 3.09 L Hgb 8.9 L Hct 27.4 L MCHC RDW 15.8 H MCV MCH Lymph % (Auto) 12.1 L Teller % (Auto) 7.8 H Teller # Eos # Lymph # (Auto) Teller # (Auto) 1.0 H Eos # (Auto) Seg Neutrophils % 77.1 H Seg Neuts % (Manual) Baso # (Auto) Lymphocytes % (Manual) Monocytes % (Manual) Eosinophils % (Manual) Basophils % (Manual) Seg Neutrophils # 9.8 H Seg Neutrophils # Man Lymphocytes # (Manual) Monocytes # (Manual) Eosinophils # (Manual) Nucleated RBC % Basophils # (Manual) PT INR APTT Heparin Anti-Xa Level ABG pH POC ABG pO2 ABG pO2 ABG HCO3 ABG O2 Saturation ABG Base Excess POC ABG pCO2 ABG Hemoglobin ABG Oxyhemoglobin ABG Chloride ABG Glucose Oxyhemoglobin Sodium Potassium Chloride 96.9 L Carbon Dioxide 37 H BUN 27 H Creatinine 0.7 L Glucose 140 H POC Glucose 145 H Lactic Acid Calcium Phosphorus Magnesium AST ALT Lactate Dehydrogenase Total Bilirubin Direct Bilirubin CK-MB (CK-2) C-Reactive Protein NT-Pro-B Natriuret Pep Total Protein Albumin Arterial Blood Glucose Urine WBC (Auto) Urine Creatinine 12/21/19 12/21/19 12/21/19 05:38 10:13 11:51 WBC RBC Hgb Hct MCHC RDW MCV MCH Lymph % (Auto) Teller % (Auto) Teller # Eos # Lymph # (Auto) Teller # (Auto) Eos # (Auto) Seg Neutrophils % Seg Neuts % (Manual) Baso # (Auto) Lymphocytes % (Manual) Monocytes % (Manual) Eosinophils % (Manual) Basophils % (Manual) Seg Neutrophils # Seg Neutrophils # Man Lymphocytes # (Manual) Monocytes # (Manual) Eosinophils # (Manual) Nucleated RBC % Basophils # (Manual) PT INR APTT 23.9 L Heparin Anti-Xa Level < 0.10 L ABG pH POC ABG pO2 ABG pO2 ABG HCO3 ABG O2 Saturation ABG Base Excess POC ABG pCO2 ABG Hemoglobin ABG Oxyhemoglobin ABG Chloride ABG Glucose Oxyhemoglobin Sodium Potassium Chloride Carbon Dioxide BUN Creatinine Glucose POC Glucose 151 H 145 H Lactic Acid Calcium Phosphorus Magnesium AST ALT Lactate Dehydrogenase Total Bilirubin Direct Bilirubin CK-MB (CK-2) C-Reactive Protein NT-Pro-B Natriuret Pep Total Protein Albumin Arterial Blood Glucose Urine WBC (Auto) Urine Creatinine 12/21/19 12/22/19 12/22/19 17:16 00:01 01:33 WBC RBC Hgb Hct MCHC RDW MCV MCH Lymph % (Auto) Teller % (Auto) Teller # Eos # Lymph # (Auto) Teller # (Auto) Eos # (Auto) Seg Neutrophils % Seg Neuts % (Manual) Baso # (Auto) Lymphocytes % (Manual) Monocytes % (Manual) Eosinophils % (Manual) Basophils % (Manual) Seg Neutrophils # Seg Neutrophils # Man Lymphocytes # (Manual) Monocytes # (Manual) Eosinophils # (Manual) Nucleated RBC % Basophils # (Manual) PT INR APTT Heparin Anti-Xa Level 0.10 L ABG pH POC ABG pO2 ABG pO2 ABG HCO3 ABG O2 Saturation ABG Base Excess POC ABG pCO2 ABG Hemoglobin ABG Oxyhemoglobin ABG Chloride ABG Glucose Oxyhemoglobin Sodium Potassium Chloride Carbon Dioxide BUN Creatinine Glucose POC Glucose 167 H 179 H Lactic Acid Calcium Phosphorus Magnesium AST ALT Lactate Dehydrogenase Total Bilirubin Direct Bilirubin CK-MB (CK-2) C-Reactive Protein NT-Pro-B Natriuret Pep Total Protein Albumin Arterial Blood Glucose Urine WBC (Auto) Urine Creatinine 12/22/19 12/22/19 12/22/19 03:22 05:10 05:10 WBC 13.8 H RBC 3.20 L Hgb 8.9 L Hct 28.1 L MCHC RDW 15.9 H MCV MCH Lymph % (Auto) Teller % (Auto) Teller # Eos # Lymph # (Auto) Teller # (Auto) Eos # (Auto) Seg Neutrophils % Seg Neuts % (Manual) Baso # (Auto) Lymphocytes % (Manual) Monocytes % (Manual) Eosinophils % (Manual) Basophils % (Manual) Seg Neutrophils # Seg Neutrophils # Man Lymphocytes # (Manual) Monocytes # (Manual) Eosinophils # (Manual) Nucleated RBC % Basophils # (Manual) PT INR APTT Heparin Anti-Xa Level ABG pH POC ABG pO2 52.3 L ABG pO2 ABG HCO3 ABG O2 Saturation ABG Base Excess POC ABG pCO2 52.9 H ABG Hemoglobin 10.7 L ABG Oxyhemoglobin 84 L ABG Chloride ABG Glucose Oxyhemoglobin Sodium Potassium Chloride 96.6 L Carbon Dioxide BUN 25 H Creatinine 0.7 L Glucose 129 H POC Glucose Lactic Acid Calcium Phosphorus Magnesium AST ALT Lactate Dehydrogenase Total Bilirubin Direct Bilirubin CK-MB (CK-2) C-Reactive Protein NT-Pro-B Natriuret Pep Total Protein Albumin Arterial Blood Glucose Urine WBC (Auto) Urine Creatinine 12/22/19 12/22/19 12/22/19 05:18 12:32 12:43 WBC RBC Hgb Hct MCHC RDW MCV MCH Lymph % (Auto) Teller % (Auto) Teller # Eos # Lymph # (Auto) Teller # (Auto) Eos # (Auto) Seg Neutrophils % Seg Neuts % (Manual) Baso # (Auto) Lymphocytes % (Manual) Monocytes % (Manual) Eosinophils % (Manual) Basophils % (Manual) Seg Neutrophils # Seg Neutrophils # Man Lymphocytes # (Manual) Monocytes # (Manual) Eosinophils # (Manual) Nucleated RBC % Basophils # (Manual) PT INR APTT Heparin Anti-Xa Level 0.18 L ABG pH POC ABG pO2 ABG pO2 ABG HCO3 ABG O2 Saturation ABG Base Excess POC ABG pCO2 ABG Hemoglobin ABG Oxyhemoglobin ABG Chloride ABG Glucose Oxyhemoglobin Sodium Potassium Chloride Carbon Dioxide BUN Creatinine Glucose POC Glucose 131 H 208 H Lactic Acid Calcium Phosphorus Magnesium AST ALT Lactate Dehydrogenase Total Bilirubin Direct Bilirubin CK-MB (CK-2) C-Reactive Protein NT-Pro-B Natriuret Pep Total Protein Albumin Arterial Blood Glucose Urine WBC (Auto) Urine Creatinine 12/22/19 12/22/19 12/23/19 17:44 23:20 03:51 WBC 15.2 H RBC 3.43 L Hgb 9.6 L Hct 30.3 L MCHC RDW 15.9 H MCV MCH Lymph % (Auto) Teller % (Auto) Teller # Eos # Lymph # (Auto) Teller # (Auto) Eos # (Auto) Seg Neutrophils % Seg Neuts % (Manual) Baso # (Auto) Lymphocytes % (Manual) Monocytes % (Manual) Eosinophils % (Manual) Basophils % (Manual) Seg Neutrophils # Seg Neutrophils # Man Lymphocytes # (Manual) Monocytes # (Manual) Eosinophils # (Manual) Nucleated RBC % Basophils # (Manual) PT INR APTT Heparin Anti-Xa Level ABG pH POC ABG pO2 ABG pO2 ABG HCO3 ABG O2 Saturation ABG Base Excess POC ABG pCO2 ABG Hemoglobin ABG Oxyhemoglobin ABG Chloride ABG Glucose Oxyhemoglobin Sodium Potassium Chloride Carbon Dioxide BUN Creatinine Glucose POC Glucose 209 H 119 H Lactic Acid Calcium Phosphorus Magnesium AST ALT Lactate Dehydrogenase Total Bilirubin Direct Bilirubin CK-MB (CK-2) C-Reactive Protein NT-Pro-B Natriuret Pep Total Protein Albumin Arterial Blood Glucose Urine WBC (Auto) Urine Creatinine 12/23/19 12/23/19 12/23/19 03:51 05:31 12:09 WBC RBC Hgb Hct MCHC RDW MCV MCH Lymph % (Auto) Teller % (Auto) Teller # Eos # Lymph # (Auto) Teller # (Auto) Eos # (Auto) Seg Neutrophils % Seg Neuts % (Manual) Baso # (Auto) Lymphocytes % (Manual) Monocytes % (Manual) Eosinophils % (Manual) Basophils % (Manual) Seg Neutrophils # Seg Neutrophils # Man Lymphocytes # (Manual) Monocytes # (Manual) Eosinophils # (Manual) Nucleated RBC % Basophils # (Manual) PT INR APTT Heparin Anti-Xa Level ABG pH POC ABG pO2 ABG pO2 ABG HCO3 ABG O2 Saturation ABG Base Excess POC ABG pCO2 ABG Hemoglobin ABG Oxyhemoglobin ABG Chloride ABG Glucose Oxyhemoglobin Sodium Potassium Chloride 97.2 L Carbon Dioxide 31 H BUN 23 H Creatinine 0.6 L Glucose 153 H POC Glucose 149 H 144 H Lactic Acid Calcium Phosphorus Magnesium AST ALT Lactate Dehydrogenase Total Bilirubin Direct Bilirubin CK-MB (CK-2) C-Reactive Protein NT-Pro-B Natriuret Pep Total Protein Albumin Arterial Blood Glucose Urine WBC (Auto) Urine Creatinine 12/23/19 12/23/19 12/23/19 15:30 17:49 23:31 WBC RBC Hgb Hct MCHC RDW MCV MCH Lymph % (Auto) Teller % (Auto) Teller # Eos # Lymph # (Auto) Teller # (Auto) Eos # (Auto) Seg Neutrophils % Seg Neuts % (Manual) Baso # (Auto) Lymphocytes % (Manual) Monocytes % (Manual) Eosinophils % (Manual) Basophils % (Manual) Seg Neutrophils # Seg Neutrophils # Man Lymphocytes # (Manual) Monocytes # (Manual) Eosinophils # (Manual) Nucleated RBC % Basophils # (Manual) PT INR APTT Heparin Anti-Xa Level 0.21 L ABG pH POC ABG pO2 ABG pO2 ABG HCO3 ABG O2 Saturation ABG Base Excess POC ABG pCO2 ABG Hemoglobin ABG Oxyhemoglobin ABG Chloride ABG Glucose Oxyhemoglobin Sodium Potassium Chloride Carbon Dioxide BUN Creatinine Glucose POC Glucose 192 H 151 H Lactic Acid Calcium Phosphorus Magnesium AST ALT Lactate Dehydrogenase Total Bilirubin Direct Bilirubin CK-MB (CK-2) C-Reactive Protein NT-Pro-B Natriuret Pep Total Protein Albumin Arterial Blood Glucose Urine WBC (Auto) Urine Creatinine 12/24/19 12/24/19 12/24/19 05:34 12:13 16:50 WBC RBC Hgb Hct MCHC RDW MCV MCH Lymph % (Auto) Teller % (Auto) Teller # Eos # Lymph # (Auto) Teller # (Auto) Eos # (Auto) Seg Neutrophils % Seg Neuts % (Manual) Baso # (Auto) Lymphocytes % (Manual) Monocytes % (Manual) Eosinophils % (Manual) Basophils % (Manual) Seg Neutrophils # Seg Neutrophils # Man Lymphocytes # (Manual) Monocytes # (Manual) Eosinophils # (Manual) Nucleated RBC % Basophils # (Manual) PT INR APTT Heparin Anti-Xa Level 0.16 L ABG pH POC ABG pO2 ABG pO2 ABG HCO3 ABG O2 Saturation ABG Base Excess POC ABG pCO2 ABG Hemoglobin ABG Oxyhemoglobin ABG Chloride ABG Glucose Oxyhemoglobin Sodium Potassium Chloride Carbon Dioxide BUN Creatinine Glucose POC Glucose 145 H 124 H Lactic Acid Calcium Phosphorus Magnesium AST ALT Lactate Dehydrogenase Total Bilirubin Direct Bilirubin CK-MB (CK-2) C-Reactive Protein NT-Pro-B Natriuret Pep Total Protein Albumin Arterial Blood Glucose Urine WBC (Auto) Urine Creatinine 12/24/19 12/25/19 12/25/19 17:53 00:14 04:18 WBC 12.9 H RBC 3.30 L Hgb 9.1 L Hct 28.8 L MCHC RDW 16.4 H MCV MCH Lymph % (Auto) Teller % (Auto) 7.8 H Teller # Eos # Lymph # (Auto) Teller # (Auto) 1.0 H Eos # (Auto) Seg Neutrophils % 75.5 H Seg Neuts % (Manual) Baso # (Auto) Lymphocytes % (Manual) Monocytes % (Manual) Eosinophils % (Manual) Basophils % (Manual) Seg Neutrophils # 9.7 H Seg Neutrophils # Man Lymphocytes # (Manual) Monocytes # (Manual) Eosinophils # (Manual) Nucleated RBC % Basophils # (Manual) PT INR APTT Heparin Anti-Xa Level ABG pH POC ABG pO2 ABG pO2 ABG HCO3 ABG O2 Saturation ABG Base Excess POC ABG pCO2 ABG Hemoglobin ABG Oxyhemoglobin ABG Chloride ABG Glucose Oxyhemoglobin Sodium Potassium Chloride Carbon Dioxide BUN Creatinine Glucose POC Glucose 164 H 148 H Lactic Acid Calcium Phosphorus Magnesium AST ALT Lactate Dehydrogenase Total Bilirubin Direct Bilirubin CK-MB (CK-2) C-Reactive Protein NT-Pro-B Natriuret Pep Total Protein Albumin Arterial Blood Glucose Urine WBC (Auto) Urine Creatinine 12/25/19 12/25/19 12/25/19 04:18 05:38 11:44 WBC RBC Hgb Hct MCHC RDW MCV MCH Lymph % (Auto) Teller % (Auto) Teller # Eos # Lymph # (Auto) Teller # (Auto) Eos # (Auto) Seg Neutrophils % Seg Neuts % (Manual) Baso # (Auto) Lymphocytes % (Manual) Monocytes % (Manual) Eosinophils % (Manual) Basophils % (Manual) Seg Neutrophils # Seg Neutrophils # Man Lymphocytes # (Manual) Monocytes # (Manual) Eosinophils # (Manual) Nucleated RBC % Basophils # (Manual) PT INR APTT Heparin Anti-Xa Level ABG pH POC ABG pO2 ABG pO2 ABG HCO3 ABG O2 Saturation ABG Base Excess POC ABG pCO2 ABG Hemoglobin ABG Oxyhemoglobin ABG Chloride ABG Glucose Oxyhemoglobin Sodium Potassium Chloride Carbon Dioxide 33 H BUN 27 H Creatinine 0.6 L Glucose 132 H POC Glucose 152 H 166 H Lactic Acid Calcium Phosphorus Magnesium AST ALT Lactate Dehydrogenase Total Bilirubin Direct Bilirubin CK-MB (CK-2) C-Reactive Protein NT-Pro-B Natriuret Pep Total Protein Albumin Arterial Blood Glucose Urine WBC (Auto) Urine Creatinine 12/25/19 12/26/19 12/26/19 18:29 00:17 00:18 WBC RBC Hgb Hct MCHC RDW MCV MCH Lymph % (Auto) Teller % (Auto) Teller # Eos # Lymph # (Auto) Teller # (Auto) Eos # (Auto) Seg Neutrophils % Seg Neuts % (Manual) Baso # (Auto) Lymphocytes % (Manual) Monocytes % (Manual) Eosinophils % (Manual) Basophils % (Manual) Seg Neutrophils # Seg Neutrophils # Man Lymphocytes # (Manual) Monocytes # (Manual) Eosinophils # (Manual) Nucleated RBC % Basophils # (Manual) PT INR APTT Heparin Anti-Xa Level ABG pH POC ABG pO2 ABG pO2 ABG HCO3 ABG O2 Saturation ABG Base Excess POC ABG pCO2 ABG Hemoglobin ABG Oxyhemoglobin ABG Chloride ABG Glucose Oxyhemoglobin Sodium Potassium Chloride 97.8 L Carbon Dioxide BUN 25 H Creatinine 0.6 L Glucose 140 H POC Glucose 194 H 151 H Lactic Acid Calcium Phosphorus Magnesium AST ALT Lactate Dehydrogenase Total Bilirubin Direct Bilirubin CK-MB (CK-2) C-Reactive Protein NT-Pro-B Natriuret Pep Total Protein Albumin Arterial Blood Glucose Urine WBC (Auto) Urine Creatinine 12/26/19 12/26/19 12/26/19 05:36 11:41 17:50 WBC RBC Hgb Hct MCHC RDW MCV MCH Lymph % (Auto) Teller % (Auto) Teller # Eos # Lymph # (Auto) Teller # (Auto) Eos # (Auto) Seg Neutrophils % Seg Neuts % (Manual) Baso # (Auto) Lymphocytes % (Manual) Monocytes % (Manual) Eosinophils % (Manual) Basophils % (Manual) Seg Neutrophils # Seg Neutrophils # Man Lymphocytes # (Manual) Monocytes # (Manual) Eosinophils # (Manual) Nucleated RBC % Basophils # (Manual) PT INR APTT Heparin Anti-Xa Level ABG pH POC ABG pO2 ABG pO2 ABG HCO3 ABG O2 Saturation ABG Base Excess POC ABG pCO2 ABG Hemoglobin ABG Oxyhemoglobin ABG Chloride ABG Glucose Oxyhemoglobin Sodium Potassium Chloride Carbon Dioxide BUN Creatinine Glucose POC Glucose 156 H 148 H 139 H Lactic Acid Calcium Phosphorus Magnesium AST ALT Lactate Dehydrogenase Total Bilirubin Direct Bilirubin CK-MB (CK-2) C-Reactive Protein NT-Pro-B Natriuret Pep Total Protein Albumin Arterial Blood Glucose Urine WBC (Auto) Urine Creatinine 12/26/19 12/27/19 12/27/19 23:19 05:34 12:02 WBC RBC Hgb Hct MCHC RDW MCV MCH Lymph % (Auto) Teller % (Auto) Teller # Eos # Lymph # (Auto) Teller # (Auto) Eos # (Auto) Seg Neutrophils % Seg Neuts % (Manual) Baso # (Auto) Lymphocytes % (Manual) Monocytes % (Manual) Eosinophils % (Manual) Basophils % (Manual) Seg Neutrophils # Seg Neutrophils # Man Lymphocytes # (Manual) Monocytes # (Manual) Eosinophils # (Manual) Nucleated RBC % Basophils # (Manual) PT INR APTT Heparin Anti-Xa Level ABG pH POC ABG pO2 ABG pO2 ABG HCO3 ABG O2 Saturation ABG Base Excess POC ABG pCO2 ABG Hemoglobin ABG Oxyhemoglobin ABG Chloride ABG Glucose Oxyhemoglobin Sodium Potassium Chloride Carbon Dioxide BUN Creatinine Glucose POC Glucose 161 H 145 H 157 H Lactic Acid Calcium Phosphorus Magnesium AST ALT Lactate Dehydrogenase Total Bilirubin Direct Bilirubin CK-MB (CK-2) C-Reactive Protein NT-Pro-B Natriuret Pep Total Protein Albumin Arterial Blood Glucose Urine WBC (Auto) Urine Creatinine 12/27/19 12/27/19 12/27/19 17:35 20:11 23:00 WBC RBC Hgb Hct MCHC RDW MCV MCH Lymph % (Auto) Teller % (Auto) Teller # Eos # Lymph # (Auto) Teller # (Auto) Eos # (Auto) Seg Neutrophils % Seg Neuts % (Manual) Baso # (Auto) Lymphocytes % (Manual) Monocytes % (Manual) Eosinophils % (Manual) Basophils % (Manual) Seg Neutrophils # Seg Neutrophils # Man Lymphocytes # (Manual) Monocytes # (Manual) Eosinophils # (Manual) Nucleated RBC % Basophils # (Manual) PT INR APTT Heparin Anti-Xa Level 0.19 L ABG pH POC ABG pO2 ABG pO2 ABG HCO3 ABG O2 Saturation ABG Base Excess POC ABG pCO2 ABG Hemoglobin ABG Oxyhemoglobin ABG Chloride ABG Glucose Oxyhemoglobin Sodium Potassium Chloride Carbon Dioxide BUN Creatinine Glucose POC Glucose 158 H 155 H Lactic Acid Calcium Phosphorus Magnesium AST ALT Lactate Dehydrogenase Total Bilirubin Direct Bilirubin CK-MB (CK-2) C-Reactive Protein NT-Pro-B Natriuret Pep Total Protein Albumin Arterial Blood Glucose Urine WBC (Auto) Urine Creatinine 12/27/19 12/28/19 12/28/19 23:45 02:41 02:41 WBC 13.0 H RBC 3.48 L Hgb 9.5 L Hct 30.6 L MCHC 31 L RDW 16.6 H MCV MCH 27 L Lymph % (Auto) 13.0 L Teller % (Auto) 8.0 H Teller # Eos # Lymph # (Auto) Teller # (Auto) 1.0 H Eos # (Auto) Seg Neutrophils % 76.3 H Seg Neuts % (Manual) Baso # (Auto) Lymphocytes % (Manual) Monocytes % (Manual) Eosinophils % (Manual) Basophils % (Manual) Seg Neutrophils # 9.9 H Seg Neutrophils # Man Lymphocytes # (Manual) Monocytes # (Manual) Eosinophils # (Manual) Nucleated RBC % Basophils # (Manual) PT INR APTT Heparin Anti-Xa Level ABG pH POC ABG pO2 ABG pO2 ABG HCO3 ABG O2 Saturation ABG Base Excess POC ABG pCO2 ABG Hemoglobin ABG Oxyhemoglobin ABG Chloride ABG Glucose Oxyhemoglobin Sodium Potassium Chloride Carbon Dioxide BUN 22 H Creatinine 0.6 L Glucose 101 H POC Glucose 130 H Lactic Acid Calcium Phosphorus Magnesium AST ALT Lactate Dehydrogenase Total Bilirubin Direct Bilirubin CK-MB (CK-2) C-Reactive Protein NT-Pro-B Natriuret Pep Total Protein Albumin Arterial Blood Glucose Urine WBC (Auto) Urine Creatinine 12/28/19 12/28/19 12/28/19 06:00 12:34 18:13 WBC RBC Hgb Hct MCHC RDW MCV MCH Lymph % (Auto) Teller % (Auto) Teller # Eos # Lymph # (Auto) Teller # (Auto) Eos # (Auto) Seg Neutrophils % Seg Neuts % (Manual) Baso # (Auto) Lymphocytes % (Manual) Monocytes % (Manual) Eosinophils % (Manual) Basophils % (Manual) Seg Neutrophils # Seg Neutrophils # Man Lymphocytes # (Manual) Monocytes # (Manual) Eosinophils # (Manual) Nucleated RBC % Basophils # (Manual) PT INR APTT Heparin Anti-Xa Level ABG pH POC ABG pO2 ABG pO2 ABG HCO3 ABG O2 Saturation ABG Base Excess POC ABG pCO2 ABG Hemoglobin ABG Oxyhemoglobin ABG Chloride ABG Glucose Oxyhemoglobin Sodium Potassium Chloride Carbon Dioxide BUN Creatinine Glucose POC Glucose 150 H 161 H 128 H Lactic Acid Calcium Phosphorus Magnesium AST ALT Lactate Dehydrogenase Total Bilirubin Direct Bilirubin CK-MB (CK-2) C-Reactive Protein NT-Pro-B Natriuret Pep Total Protein Albumin Arterial Blood Glucose Urine WBC (Auto) Urine Creatinine 12/28/19 12/29/19 12/29/19 23:36 05:21 11:40 WBC RBC Hgb Hct MCHC RDW MCV MCH Lymph % (Auto) Teller % (Auto) Teller # Eos # Lymph # (Auto) Teller # (Auto) Eos # (Auto) Seg Neutrophils % Seg Neuts % (Manual) Baso # (Auto) Lymphocytes % (Manual) Monocytes % (Manual) Eosinophils % (Manual) Basophils % (Manual) Seg Neutrophils # Seg Neutrophils # Man Lymphocytes # (Manual) Monocytes # (Manual) Eosinophils # (Manual) Nucleated RBC % Basophils # (Manual) PT INR APTT Heparin Anti-Xa Level ABG pH POC ABG pO2 ABG pO2 ABG HCO3 ABG O2 Saturation ABG Base Excess POC ABG pCO2 ABG Hemoglobin ABG Oxyhemoglobin ABG Chloride ABG Glucose Oxyhemoglobin Sodium Potassium Chloride Carbon Dioxide BUN Creatinine Glucose POC Glucose 137 H 136 H 166 H Lactic Acid Calcium Phosphorus Magnesium AST ALT Lactate Dehydrogenase Total Bilirubin Direct Bilirubin CK-MB (CK-2) C-Reactive Protein NT-Pro-B Natriuret Pep Total Protein Albumin Arterial Blood Glucose Urine WBC (Auto) Urine Creatinine 12/29/19 12/29/19 12/29/19 17:23 19:21 23:38 WBC RBC Hgb Hct MCHC RDW MCV MCH Lymph % (Auto) Teller % (Auto) Teller # Eos # Lymph # (Auto) Teller # (Auto) Eos # (Auto) Seg Neutrophils % Seg Neuts % (Manual) Baso # (Auto) Lymphocytes % (Manual) Monocytes % (Manual) Eosinophils % (Manual) Basophils % (Manual) Seg Neutrophils # Seg Neutrophils # Man Lymphocytes # (Manual) Monocytes # (Manual) Eosinophils # (Manual) Nucleated RBC % Basophils # (Manual) PT INR APTT Heparin Anti-Xa Level 0.20 L ABG pH POC ABG pO2 ABG pO2 ABG HCO3 ABG O2 Saturation ABG Base Excess POC ABG pCO2 ABG Hemoglobin ABG Oxyhemoglobin ABG Chloride ABG Glucose Oxyhemoglobin Sodium Potassium Chloride Carbon Dioxide BUN Creatinine Glucose POC Glucose 144 H 141 H Lactic Acid Calcium Phosphorus Magnesium AST ALT Lactate Dehydrogenase Total Bilirubin Direct Bilirubin CK-MB (CK-2) C-Reactive Protein NT-Pro-B Natriuret Pep Total Protein Albumin Arterial Blood Glucose Urine WBC (Auto) Urine Creatinine 12/30/19 12/30/19 12/30/19 03:58 03:58 04:59 WBC RBC 3.54 L Hgb 9.8 L Hct 30.7 L MCHC RDW 16.8 H MCV MCH Lymph % (Auto) Teller % (Auto) Teller # Eos # Lymph # (Auto) Teller # (Auto) Eos # (Auto) Seg Neutrophils % Seg Neuts % (Manual) Baso # (Auto) Lymphocytes % (Manual) Monocytes % (Manual) Eosinophils % (Manual) Basophils % (Manual) Seg Neutrophils # Seg Neutrophils # Man Lymphocytes # (Manual) Monocytes # (Manual) Eosinophils # (Manual) Nucleated RBC % Basophils # (Manual) PT INR APTT Heparin Anti-Xa Level ABG pH POC ABG pO2 ABG pO2 ABG HCO3 29.8 H ABG O2 Saturation ABG Base Excess 4.8 H POC ABG pCO2 ABG Hemoglobin 11.2 L ABG Oxyhemoglobin ABG Chloride ABG Glucose Oxyhemoglobin 93.8 L Sodium Potassium Chloride 97.8 L Carbon Dioxide BUN 26 H Creatinine Glucose 168 H POC Glucose Lactic Acid Calcium Phosphorus Magnesium AST ALT Lactate Dehydrogenase Total Bilirubin Direct Bilirubin CK-MB (CK-2) C-Reactive Protein NT-Pro-B Natriuret Pep Total Protein Albumin Arterial Blood Glucose Urine WBC (Auto) Urine Creatinine 12/30/19 12/30/19 12/30/19 05:45 11:34 17:28 WBC RBC Hgb Hct MCHC RDW MCV MCH Lymph % (Auto) Teller % (Auto) Teller # Eos # Lymph # (Auto) Teller # (Auto) Eos # (Auto) Seg Neutrophils % Seg Neuts % (Manual) Baso # (Auto) Lymphocytes % (Manual) Monocytes % (Manual) Eosinophils % (Manual) Basophils % (Manual) Seg Neutrophils # Seg Neutrophils # Man Lymphocytes # (Manual) Monocytes # (Manual) Eosinophils # (Manual) Nucleated RBC % Basophils # (Manual) PT INR APTT Heparin Anti-Xa Level ABG pH POC ABG pO2 ABG pO2 ABG HCO3 ABG O2 Saturation ABG Base Excess POC ABG pCO2 ABG Hemoglobin ABG Oxyhemoglobin ABG Chloride ABG Glucose Oxyhemoglobin Sodium Potassium Chloride Carbon Dioxide BUN Creatinine Glucose POC Glucose 163 H 180 H 150 H Lactic Acid Calcium Phosphorus Magnesium AST ALT Lactate Dehydrogenase Total Bilirubin Direct Bilirubin CK-MB (CK-2) C-Reactive Protein NT-Pro-B Natriuret Pep Total Protein Albumin Arterial Blood Glucose Urine WBC (Auto) Urine Creatinine 12/30/19 12/31/19 12/31/19 23:43 04:55 05:07 WBC RBC Hgb Hct MCHC RDW MCV MCH Lymph % (Auto) Teller % (Auto) Teller # Eos # Lymph # (Auto) Teller # (Auto) Eos # (Auto) Seg Neutrophils % Seg Neuts % (Manual) Baso # (Auto) Lymphocytes % (Manual) Monocytes % (Manual) Eosinophils % (Manual) Basophils % (Manual) Seg Neutrophils # Seg Neutrophils # Man Lymphocytes # (Manual) Monocytes # (Manual) Eosinophils # (Manual) Nucleated RBC % Basophils # (Manual) PT INR APTT Heparin Anti-Xa Level ABG pH POC ABG pO2 ABG pO2 ABG HCO3 ABG O2 Saturation ABG Base Excess POC ABG pCO2 ABG Hemoglobin ABG Oxyhemoglobin ABG Chloride ABG Glucose Oxyhemoglobin Sodium Potassium 5.6 H D Chloride Carbon Dioxide BUN 33 H Creatinine Glucose 131 H POC Glucose 142 H 134 H Lactic Acid Calcium Phosphorus Magnesium AST ALT Lactate Dehydrogenase Total Bilirubin Direct Bilirubin CK-MB (CK-2) C-Reactive Protein NT-Pro-B Natriuret Pep Total Protein Albumin Arterial Blood Glucose Urine WBC (Auto) Urine Creatinine 12/31/19 12/31/19 12/31/19 11:30 17:19 17:36 WBC RBC Hgb Hct MCHC RDW MCV MCH Lymph % (Auto) Teller % (Auto) Teller # Eos # Lymph # (Auto) Teller # (Auto) Eos # (Auto) Seg Neutrophils % Seg Neuts % (Manual) Baso # (Auto) Lymphocytes % (Manual) Monocytes % (Manual) Eosinophils % (Manual) Basophils % (Manual) Seg Neutrophils # Seg Neutrophils # Man Lymphocytes # (Manual) Monocytes # (Manual) Eosinophils # (Manual) Nucleated RBC % Basophils # (Manual) PT INR APTT Heparin Anti-Xa Level ABG pH POC ABG pO2 ABG pO2 ABG HCO3 ABG O2 Saturation ABG Base Excess POC ABG pCO2 ABG Hemoglobin ABG Oxyhemoglobin ABG Chloride ABG Glucose Oxyhemoglobin Sodium Potassium Chloride Carbon Dioxide BUN 35 H Creatinine Glucose 156 H POC Glucose 158 H 181 H Lactic Acid Calcium Phosphorus Magnesium AST ALT Lactate Dehydrogenase Total Bilirubin Direct Bilirubin CK-MB (CK-2) C-Reactive Protein NT-Pro-B Natriuret Pep Total Protein Albumin Arterial Blood Glucose Urine WBC (Auto) Urine Creatinine 12/31/19 12/31/19 12/31/19 18:16 19:41 21:53 WBC RBC Hgb Hct MCHC RDW MCV MCH Lymph % (Auto) Teller % (Auto) Teller # Eos # Lymph # (Auto) Teller # (Auto) Eos # (Auto) Seg Neutrophils % Seg Neuts % (Manual) Baso # (Auto) Lymphocytes % (Manual) Monocytes % (Manual) Eosinophils % (Manual) Basophils % (Manual) Seg Neutrophils # Seg Neutrophils # Man Lymphocytes # (Manual) Monocytes # (Manual) Eosinophils # (Manual) Nucleated RBC % Basophils # (Manual) PT INR APTT Heparin Anti-Xa Level 0.20 L ABG pH POC ABG pO2 ABG pO2 ABG HCO3 ABG O2 Saturation ABG Base Excess POC ABG pCO2 ABG Hemoglobin ABG Oxyhemoglobin ABG Chloride ABG Glucose Oxyhemoglobin Sodium Potassium Chloride Carbon Dioxide BUN 34 H Creatinine Glucose 169 H POC Glucose 141 H Lactic Acid Calcium Phosphorus Magnesium AST ALT Lactate Dehydrogenase Total Bilirubin Direct Bilirubin CK-MB (CK-2) C-Reactive Protein NT-Pro-B Natriuret Pep Total Protein Albumin Arterial Blood Glucose Urine WBC (Auto) Urine Creatinine 12/31/19 01/01/20 01/01/20 23:51 05:17 10:40 WBC RBC Hgb Hct MCHC RDW MCV MCH Lymph % (Auto) Teller % (Auto) Teller # Eos # Lymph # (Auto) Teller # (Auto) Eos # (Auto) Seg Neutrophils % Seg Neuts % (Manual) Baso # (Auto) Lymphocytes % (Manual) Monocytes % (Manual) Eosinophils % (Manual) Basophils % (Manual) Seg Neutrophils # Seg Neutrophils # Man Lymphocytes # (Manual) Monocytes # (Manual) Eosinophils # (Manual) Nucleated RBC % Basophils # (Manual) PT INR APTT Heparin Anti-Xa Level ABG pH POC ABG pO2 ABG pO2 ABG HCO3 ABG O2 Saturation ABG Base Excess POC ABG pCO2 ABG Hemoglobin ABG Oxyhemoglobin ABG Chloride ABG Glucose Oxyhemoglobin Sodium Potassium Chloride Carbon Dioxide BUN 31 H Creatinine 0.7 L Glucose 137 H POC Glucose 131 H 155 H Lactic Acid Calcium Phosphorus Magnesium AST 73 H ALT 97 H Lactate Dehydrogenase Total Bilirubin Direct Bilirubin CK-MB (CK-2) C-Reactive Protein NT-Pro-B Natriuret Pep 3866 H Total Protein Albumin 2.8 L Arterial Blood Glucose Urine WBC (Auto) Urine Creatinine 01/01/20 01/01/20 01/01/20 12:26 15:33 17:53 WBC 14.3 H RBC 3.35 L Hgb 9.1 L Hct 28.8 L MCHC RDW 17.0 H MCV MCH 27 L Lymph % (Auto) 7.0 L Teller % (Auto) 7.6 H Teller # Eos # Lymph # (Auto) 1.0 L Teller # (Auto) 1.1 H Eos # (Auto) Seg Neutrophils % 83.3 H Seg Neuts % (Manual) Baso # (Auto) Lymphocytes % (Manual) Monocytes % (Manual) Eosinophils % (Manual) Basophils % (Manual) Seg Neutrophils # 12.0 H Seg Neutrophils # Man Lymphocytes # (Manual) Monocytes # (Manual) Eosinophils # (Manual) Nucleated RBC % Basophils # (Manual) PT INR APTT Heparin Anti-Xa Level ABG pH POC ABG pO2 ABG pO2 ABG HCO3 ABG O2 Saturation ABG Base Excess POC ABG pCO2 ABG Hemoglobin ABG Oxyhemoglobin ABG Chloride ABG Glucose Oxyhemoglobin Sodium Potassium Chloride Carbon Dioxide BUN Creatinine Glucose POC Glucose 128 H 128 H Lactic Acid Calcium Phosphorus Magnesium AST ALT Lactate Dehydrogenase Total Bilirubin Direct Bilirubin CK-MB (CK-2) C-Reactive Protein NT-Pro-B Natriuret Pep Total Protein Albumin Arterial Blood Glucose Urine WBC (Auto) Urine Creatinine 01/01/20 01/02/20 01/02/20 23:04 05:39 07:00 WBC RBC Hgb Hct MCHC RDW MCV MCH Lymph % (Auto) Teller % (Auto) Teller # Eos # Lymph # (Auto) Teller # (Auto) Eos # (Auto) Seg Neutrophils % Seg Neuts % (Manual) Baso # (Auto) Lymphocytes % (Manual) Monocytes % (Manual) Eosinophils % (Manual) Basophils % (Manual) Seg Neutrophils # Seg Neutrophils # Man Lymphocytes # (Manual) Monocytes # (Manual) Eosinophils # (Manual) Nucleated RBC % Basophils # (Manual) PT INR APTT Heparin Anti-Xa Level 0.13 L ABG pH POC ABG pO2 ABG pO2 ABG HCO3 ABG O2 Saturation ABG Base Excess POC ABG pCO2 ABG Hemoglobin ABG Oxyhemoglobin ABG Chloride ABG Glucose Oxyhemoglobin Sodium Potassium Chloride Carbon Dioxide BUN Creatinine Glucose POC Glucose 120 H 169 H Lactic Acid Calcium Phosphorus Magnesium AST ALT Lactate Dehydrogenase Total Bilirubin Direct Bilirubin CK-MB (CK-2) C-Reactive Protein NT-Pro-B Natriuret Pep Total Protein Albumin Arterial Blood Glucose Urine WBC (Auto) Urine Creatinine 01/02/20 01/02/20 01/02/20 12:15 14:06 17:58 WBC RBC Hgb Hct MCHC RDW MCV MCH Lymph % (Auto) Teller % (Auto) Teller # Eos # Lymph # (Auto) Teller # (Auto) Eos # (Auto) Seg Neutrophils % Seg Neuts % (Manual) Baso # (Auto) Lymphocytes % (Manual) Monocytes % (Manual) Eosinophils % (Manual) Basophils % (Manual) Seg Neutrophils # Seg Neutrophils # Man Lymphocytes # (Manual) Monocytes # (Manual) Eosinophils # (Manual) Nucleated RBC % Basophils # (Manual) PT INR APTT Heparin Anti-Xa Level < 0.10 L ABG pH POC ABG pO2 ABG pO2 ABG HCO3 ABG O2 Saturation ABG Base Excess POC ABG pCO2 ABG Hemoglobin ABG Oxyhemoglobin ABG Chloride ABG Glucose Oxyhemoglobin Sodium Potassium Chloride Carbon Dioxide BUN Creatinine Glucose POC Glucose 190 H 198 H Lactic Acid Calcium Phosphorus Magnesium AST ALT Lactate Dehydrogenase Total Bilirubin Direct Bilirubin CK-MB (CK-2) C-Reactive Protein NT-Pro-B Natriuret Pep Total Protein Albumin Arterial Blood Glucose Urine WBC (Auto) Urine Creatinine 01/02/20 01/02/20 01/03/20 21:43 23:33 05:42 WBC RBC Hgb Hct MCHC RDW MCV MCH Lymph % (Auto) Teller % (Auto) Teller # Eos # Lymph # (Auto) Teller # (Auto) Eos # (Auto) Seg Neutrophils % Seg Neuts % (Manual) Baso # (Auto) Lymphocytes % (Manual) Monocytes % (Manual) Eosinophils % (Manual) Basophils % (Manual) Seg Neutrophils # Seg Neutrophils # Man Lymphocytes # (Manual) Monocytes # (Manual) Eosinophils # (Manual) Nucleated RBC % Basophils # (Manual) PT INR APTT Heparin Anti-Xa Level 0.10 L ABG pH POC ABG pO2 ABG pO2 ABG HCO3 ABG O2 Saturation ABG Base Excess POC ABG pCO2 ABG Hemoglobin ABG Oxyhemoglobin ABG Chloride ABG Glucose Oxyhemoglobin Sodium Potassium Chloride Carbon Dioxide BUN Creatinine Glucose POC Glucose 180 H 163 H Lactic Acid Calcium Phosphorus Magnesium AST ALT Lactate Dehydrogenase Total Bilirubin Direct Bilirubin CK-MB (CK-2) C-Reactive Protein NT-Pro-B Natriuret Pep Total Protein Albumin Arterial Blood Glucose Urine WBC (Auto) Urine Creatinine 01/03/20 01/03/20 01/03/20 06:50 07:25 07:45 WBC 12.1 H RBC 3.35 L Hgb 9.0 L Hct 28.9 L MCHC 31 L RDW 16.6 H MCV MCH 27 L Lymph % (Auto) 13.0 L Teller % (Auto) 8.6 H Teller # Eos # Lymph # (Auto) Teller # (Auto) 1.0 H Eos # (Auto) Seg Neutrophils % 75.9 H Seg Neuts % (Manual) Baso # (Auto) Lymphocytes % (Manual) Monocytes % (Manual) Eosinophils % (Manual) Basophils % (Manual) Seg Neutrophils # 9.2 H Seg Neutrophils # Man Lymphocytes # (Manual) Monocytes # (Manual) Eosinophils # (Manual) Nucleated RBC % Basophils # (Manual) PT INR APTT Heparin Anti-Xa Level 0.29 L ABG pH POC ABG pO2 ABG pO2 ABG HCO3 ABG O2 Saturation ABG Base Excess POC ABG pCO2 ABG Hemoglobin ABG Oxyhemoglobin ABG Chloride ABG Glucose Oxyhemoglobin Sodium Potassium 3.3 L D Chloride Carbon Dioxide 35 H D BUN 23 H Creatinine 0.6 L Glucose 149 H POC Glucose Lactic Acid Calcium Phosphorus Magnesium AST ALT 88 H Lactate Dehydrogenase Total Bilirubin Direct Bilirubin CK-MB (CK-2) C-Reactive Protein NT-Pro-B Natriuret Pep Total Protein 6.2 L Albumin 2.9 L Arterial Blood Glucose Urine WBC (Auto) Urine Creatinine 01/03/20 01/03/20 01/03/20 12:05 17:42 18:30 WBC RBC Hgb Hct MCHC RDW MCV MCH Lymph % (Auto) Teller % (Auto) Teller # Eos # Lymph # (Auto) Teller # (Auto) Eos # (Auto) Seg Neutrophils % Seg Neuts % (Manual) Baso # (Auto) Lymphocytes % (Manual) Monocytes % (Manual) Eosinophils % (Manual) Basophils % (Manual) Seg Neutrophils # Seg Neutrophils # Man Lymphocytes # (Manual) Monocytes # (Manual) Eosinophils # (Manual) Nucleated RBC % Basophils # (Manual) PT INR APTT Heparin Anti-Xa Level ABG pH POC ABG pO2 ABG pO2 70.7 L ABG HCO3 36.1 H ABG O2 Saturation 94.4 L ABG Base Excess 10.0 H POC ABG pCO2 ABG Hemoglobin 9.7 L ABG Oxyhemoglobin ABG Chloride ABG Glucose Oxyhemoglobin 91.8 L Sodium Potassium Chloride Carbon Dioxide BUN Creatinine Glucose POC Glucose 128 H 132 H Lactic Acid Calcium Phosphorus Magnesium AST ALT Lactate Dehydrogenase Total Bilirubin Direct Bilirubin CK-MB (CK-2) C-Reactive Protein NT-Pro-B Natriuret Pep Total Protein Albumin Arterial Blood Glucose Urine WBC (Auto) Urine Creatinine 01/04/20 01/04/20 01/04/20 00:10 04:26 05:23 WBC RBC Hgb Hct MCHC RDW MCV MCH Lymph % (Auto) Teller % (Auto) Teller # Eos # Lymph # (Auto) Teller # (Auto) Eos # (Auto) Seg Neutrophils % Seg Neuts % (Manual) Baso # (Auto) Lymphocytes % (Manual) Monocytes % (Manual) Eosinophils % (Manual) Basophils % (Manual) Seg Neutrophils # Seg Neutrophils # Man Lymphocytes # (Manual) Monocytes # (Manual) Eosinophils # (Manual) Nucleated RBC % Basophils # (Manual) PT INR APTT Heparin Anti-Xa Level 0.16 L ABG pH POC ABG pO2 ABG pO2 ABG HCO3 ABG O2 Saturation ABG Base Excess POC ABG pCO2 ABG Hemoglobin ABG Oxyhemoglobin ABG Chloride ABG Glucose Oxyhemoglobin Sodium Potassium Chloride Carbon Dioxide BUN Creatinine Glucose POC Glucose 121 H 119 H Lactic Acid Calcium Phosphorus Magnesium AST ALT Lactate Dehydrogenase Total Bilirubin Direct Bilirubin CK-MB (CK-2) C-Reactive Protein NT-Pro-B Natriuret Pep Total Protein Albumin Arterial Blood Glucose Urine WBC (Auto) Urine Creatinine 01/04/20 01/04/20 01/04/20 09:50 09:50 12:18 WBC 15.4 H RBC 3.30 L Hgb 8.7 L Hct 28.2 L MCHC 31 L RDW 17.0 H MCV MCH 26 L Lymph % (Auto) Teller % (Auto) 7.6 H Teller # Eos # Lymph # (Auto) Teller # (Auto) 1.2 H Eos # (Auto) Seg Neutrophils % 75.4 H Seg Neuts % (Manual) Baso # (Auto) Lymphocytes % (Manual) Monocytes % (Manual) Eosinophils % (Manual) Basophils % (Manual) Seg Neutrophils # 11.6 H Seg Neutrophils # Man Lymphocytes # (Manual) Monocytes # (Manual) Eosinophils # (Manual) Nucleated RBC % Basophils # (Manual) PT INR APTT Heparin Anti-Xa Level ABG pH POC ABG pO2 ABG pO2 ABG HCO3 ABG O2 Saturation ABG Base Excess POC ABG pCO2 ABG Hemoglobin ABG Oxyhemoglobin ABG Chloride ABG Glucose Oxyhemoglobin Sodium 148 H Potassium 3.5 L Chloride Carbon Dioxide 32 H BUN Creatinine 0.6 L Glucose 114 H POC Glucose 111 H Lactic Acid Calcium Phosphorus Magnesium AST ALT 59 H Lactate Dehydrogenase Total Bilirubin Direct Bilirubin CK-MB (CK-2) C-Reactive Protein NT-Pro-B Natriuret Pep Total Protein Albumin 2.6 L Arterial Blood Glucose Urine WBC (Auto) Urine Creatinine 01/05/20 01/05/20 01/05/20 04:05 04:05 05:19 WBC 11.7 H RBC 3.50 L Hgb 9.3 L Hct 29.9 L MCHC 31 L RDW 16.6 H MCV MCH 27 L Lymph % (Auto) 13.1 L Teller % (Auto) 9.7 H Teller # Eos # Lymph # (Auto) Teller # (Auto) 1.1 H Eos # (Auto) Seg Neutrophils % 74.0 H Seg Neuts % (Manual) Baso # (Auto) Lymphocytes % (Manual) Monocytes % (Manual) Eosinophils % (Manual) Basophils % (Manual) Seg Neutrophils # 8.6 H Seg Neutrophils # Man Lymphocytes # (Manual) Monocytes # (Manual) Eosinophils # (Manual) Nucleated RBC % Basophils # (Manual) PT INR APTT Heparin Anti-Xa Level ABG pH POC ABG pO2 ABG pO2 ABG HCO3 ABG O2 Saturation ABG Base Excess POC ABG pCO2 ABG Hemoglobin ABG Oxyhemoglobin ABG Chloride ABG Glucose Oxyhemoglobin Sodium 151 H Potassium Chloride Carbon Dioxide 34 H BUN Creatinine 0.7 L Glucose POC Glucose 112 H Lactic Acid Calcium Phosphorus Magnesium AST ALT 59 H Lactate Dehydrogenase Total Bilirubin Direct Bilirubin CK-MB (CK-2) C-Reactive Protein NT-Pro-B Natriuret Pep Total Protein 5.8 L Albumin 2.6 L Arterial Blood Glucose Urine WBC (Auto) Urine Creatinine 01/05/20 01/06/20 01/06/20 16:04 00:23 04:44 WBC RBC 3.36 L Hgb 8.9 L Hct 28.7 L MCHC 31 L RDW 16.9 H MCV MCH 26 L Lymph % (Auto) Teller % (Auto) 9.4 H Teller # Eos # Lymph # (Auto) Teller # (Auto) Eos # (Auto) Seg Neutrophils % Seg Neuts % (Manual) Baso # (Auto) Lymphocytes % (Manual) Monocytes % (Manual) Eosinophils % (Manual) Basophils % (Manual) Seg Neutrophils # Seg Neutrophils # Man Lymphocytes # (Manual) Monocytes # (Manual) Eosinophils # (Manual) Nucleated RBC % Basophils # (Manual) PT INR APTT Heparin Anti-Xa Level ABG pH POC ABG pO2 ABG pO2 ABG HCO3 ABG O2 Saturation ABG Base Excess POC ABG pCO2 ABG Hemoglobin ABG Oxyhemoglobin ABG Chloride ABG Glucose Oxyhemoglobin Sodium 151 H Potassium 3.2 L Chloride Carbon Dioxide 34 H BUN Creatinine 0.6 L Glucose POC Glucose 107 H Lactic Acid Calcium Phosphorus Magnesium AST ALT Lactate Dehydrogenase Total Bilirubin Direct Bilirubin CK-MB (CK-2) C-Reactive Protein NT-Pro-B Natriuret Pep Total Protein Albumin Arterial Blood Glucose Urine WBC (Auto) Urine Creatinine 01/06/20 01/06/20 01/06/20 04:44 05:33 12:04 WBC RBC Hgb Hct MCHC RDW MCV MCH Lymph % (Auto) Teller % (Auto) Teller # Eos # Lymph # (Auto) Teller # (Auto) Eos # (Auto) Seg Neutrophils % Seg Neuts % (Manual) Baso # (Auto) Lymphocytes % (Manual) Monocytes % (Manual) Eosinophils % (Manual) Basophils % (Manual) Seg Neutrophils # Seg Neutrophils # Man Lymphocytes # (Manual) Monocytes # (Manual) Eosinophils # (Manual) Nucleated RBC % Basophils # (Manual) PT INR APTT Heparin Anti-Xa Level ABG pH POC ABG pO2 ABG pO2 ABG HCO3 ABG O2 Saturation ABG Base Excess POC ABG pCO2 ABG Hemoglobin ABG Oxyhemoglobin ABG Chloride ABG Glucose Oxyhemoglobin Sodium 151 H Potassium 3.4 L Chloride Carbon Dioxide 33 H BUN Creatinine 0.6 L Glucose 118 H POC Glucose 118 H 123 H Lactic Acid Calcium Phosphorus Magnesium AST ALT Lactate Dehydrogenase Total Bilirubin Direct Bilirubin CK-MB (CK-2) C-Reactive Protein NT-Pro-B Natriuret Pep Total Protein 6.2 L Albumin 2.6 L Arterial Blood Glucose Urine WBC (Auto) Urine Creatinine 01/06/20 01/07/20 01/07/20 17:54 00:06 04:10 WBC RBC 3.42 L Hgb 8.9 L Hct 29.0 L MCHC 31 L RDW 17.1 H MCV MCH 26 L Lymph % (Auto) Teller % (Auto) 8.4 H Teller # Eos # Lymph # (Auto) Teller # (Auto) Eos # (Auto) Seg Neutrophils % Seg Neuts % (Manual) Baso # (Auto) Lymphocytes % (Manual) Monocytes % (Manual) Eosinophils % (Manual) Basophils % (Manual) Seg Neutrophils # Seg Neutrophils # Man Lymphocytes # (Manual) Monocytes # (Manual) Eosinophils # (Manual) Nucleated RBC % Basophils # (Manual) PT INR APTT Heparin Anti-Xa Level ABG pH POC ABG pO2 ABG pO2 ABG HCO3 ABG O2 Saturation ABG Base Excess POC ABG pCO2 ABG Hemoglobin ABG Oxyhemoglobin ABG Chloride ABG Glucose Oxyhemoglobin Sodium Potassium Chloride Carbon Dioxide BUN Creatinine Glucose POC Glucose 112 H 126 H Lactic Acid Calcium Phosphorus Magnesium AST ALT Lactate Dehydrogenase Total Bilirubin Direct Bilirubin CK-MB (CK-2) C-Reactive Protein NT-Pro-B Natriuret Pep Total Protein Albumin Arterial Blood Glucose Urine WBC (Auto) Urine Creatinine 01/07/20 01/07/20 01/07/20 04:10 05:59 12:27 WBC RBC Hgb Hct MCHC RDW MCV MCH Lymph % (Auto) Teller % (Auto) Teller # Eos # Lymph # (Auto) Teller # (Auto) Eos # (Auto) Seg Neutrophils % Seg Neuts % (Manual) Baso # (Auto) Lymphocytes % (Manual) Monocytes % (Manual) Eosinophils % (Manual) Basophils % (Manual) Seg Neutrophils # Seg Neutrophils # Man Lymphocytes # (Manual) Monocytes # (Manual) Eosinophils # (Manual) Nucleated RBC % Basophils # (Manual) PT INR APTT Heparin Anti-Xa Level ABG pH POC ABG pO2 ABG pO2 ABG HCO3 ABG O2 Saturation ABG Base Excess POC ABG pCO2 ABG Hemoglobin ABG Oxyhemoglobin ABG Chloride ABG Glucose Oxyhemoglobin Sodium 153 H Potassium 3.5 L Chloride Carbon Dioxide 34 H BUN Creatinine 0.6 L Glucose 121 H POC Glucose 121 H 126 H Lactic Acid Calcium Phosphorus Magnesium AST ALT Lactate Dehydrogenase Total Bilirubin Direct Bilirubin CK-MB (CK-2) C-Reactive Protein NT-Pro-B Natriuret Pep Total Protein 5.9 L Albumin 2.4 L Arterial Blood Glucose Urine WBC (Auto) Urine Creatinine 01/07/20 01/08/20 01/08/20 18:12 00:03 05:41 WBC RBC Hgb Hct MCHC RDW MCV MCH Lymph % (Auto) Teller % (Auto) Teller # Eos # Lymph # (Auto) Teller # (Auto) Eos # (Auto) Seg Neutrophils % Seg Neuts % (Manual) Baso # (Auto) Lymphocytes % (Manual) Monocytes % (Manual) Eosinophils % (Manual) Basophils % (Manual) Seg Neutrophils # Seg Neutrophils # Man Lymphocytes # (Manual) Monocytes # (Manual) Eosinophils # (Manual) Nucleated RBC % Basophils # (Manual) PT INR APTT Heparin Anti-Xa Level ABG pH POC ABG pO2 ABG pO2 ABG HCO3 ABG O2 Saturation ABG Base Excess POC ABG pCO2 ABG Hemoglobin ABG Oxyhemoglobin ABG Chloride ABG Glucose Oxyhemoglobin Sodium Potassium Chloride Carbon Dioxide BUN Creatinine Glucose POC Glucose 124 H 130 H 138 H Lactic Acid Calcium Phosphorus Magnesium AST ALT Lactate Dehydrogenase Total Bilirubin Direct Bilirubin CK-MB (CK-2) C-Reactive Protein NT-Pro-B Natriuret Pep Total Protein Albumin Arterial Blood Glucose Urine WBC (Auto) Urine Creatinine 01/08/20 01/08/20 01/08/20 09:28 11:42 18:21 WBC RBC Hgb Hct MCHC RDW MCV MCH Lymph % (Auto) Teller % (Auto) Teller # Eos # Lymph # (Auto) Teller # (Auto) Eos # (Auto) Seg Neutrophils % Seg Neuts % (Manual) Baso # (Auto) Lymphocytes % (Manual) Monocytes % (Manual) Eosinophils % (Manual) Basophils % (Manual) Seg Neutrophils # Seg Neutrophils # Man Lymphocytes # (Manual) Monocytes # (Manual) Eosinophils # (Manual) Nucleated RBC % Basophils # (Manual) PT INR APTT Heparin Anti-Xa Level ABG pH POC ABG pO2 ABG pO2 ABG HCO3 ABG O2 Saturation ABG Base Excess POC ABG pCO2 ABG Hemoglobin ABG Oxyhemoglobin ABG Chloride ABG Glucose Oxyhemoglobin Sodium Potassium Chloride Carbon Dioxide BUN Creatinine Glucose POC Glucose 181 H 150 H 129 H Lactic Acid Calcium Phosphorus Magnesium AST ALT Lactate Dehydrogenase Total Bilirubin Direct Bilirubin CK-MB (CK-2) C-Reactive Protein NT-Pro-B Natriuret Pep Total Protein Albumin Arterial Blood Glucose Urine WBC (Auto) Urine Creatinine 01/08/20 01/08/20 01/09/20 19:25 23:55 04:11 WBC RBC 3.43 L Hgb 8.9 L Hct 28.7 L MCHC 31 L RDW 17.6 H MCV MCH 26 L Lymph % (Auto) Teller % (Auto) 8.6 H Teller # Eos # Lymph # (Auto) Teller # (Auto) Eos # (Auto) Seg Neutrophils % Seg Neuts % (Manual) Baso # (Auto) Lymphocytes % (Manual) Monocytes % (Manual) Eosinophils % (Manual) Basophils % (Manual) Seg Neutrophils # Seg Neutrophils # Man Lymphocytes # (Manual) Monocytes # (Manual) Eosinophils # (Manual) Nucleated RBC % Basophils # (Manual) PT INR APTT Heparin Anti-Xa Level ABG pH POC ABG pO2 ABG pO2 ABG HCO3 ABG O2 Saturation ABG Base Excess POC ABG pCO2 ABG Hemoglobin ABG Oxyhemoglobin ABG Chloride ABG Glucose Oxyhemoglobin Sodium Potassium Chloride Carbon Dioxide BUN Creatinine 0.7 L Glucose 117 H POC Glucose 132 H Lactic Acid Calcium Phosphorus Magnesium AST ALT Lactate Dehydrogenase Total Bilirubin Direct Bilirubin CK-MB (CK-2) C-Reactive Protein NT-Pro-B Natriuret Pep Total Protein Albumin Arterial Blood Glucose Urine WBC (Auto) Urine Creatinine 01/09/20 01/09/20 01/09/20 04:11 05:38 22:58 WBC RBC Hgb Hct MCHC RDW MCV MCH Lymph % (Auto) Teller % (Auto) Teller # Eos # Lymph # (Auto) Teller # (Auto) Eos # (Auto) Seg Neutrophils % Seg Neuts % (Manual) Baso # (Auto) Lymphocytes % (Manual) Monocytes % (Manual) Eosinophils % (Manual) Basophils % (Manual) Seg Neutrophils # Seg Neutrophils # Man Lymphocytes # (Manual) Monocytes # (Manual) Eosinophils # (Manual) Nucleated RBC % Basophils # (Manual) PT INR APTT Heparin Anti-Xa Level ABG pH POC ABG pO2 ABG pO2 ABG HCO3 ABG O2 Saturation ABG Base Excess POC ABG pCO2 ABG Hemoglobin ABG Oxyhemoglobin ABG Chloride ABG Glucose Oxyhemoglobin Sodium 147 H Potassium 3.3 L D Chloride Carbon Dioxide 32 H BUN Creatinine 0.6 L Glucose 106 H POC Glucose 107 H 113 H Lactic Acid Calcium Phosphorus Magnesium AST ALT Lactate Dehydrogenase Total Bilirubin Direct Bilirubin CK-MB (CK-2) C-Reactive Protein NT-Pro-B Natriuret Pep Total Protein Albumin Arterial Blood Glucose Urine WBC (Auto) Urine Creatinine 01/10/20 01/10/20 01/10/20 04:05 11:36 17:54 WBC RBC Hgb Hct MCHC RDW MCV MCH Lymph % (Auto) Teller % (Auto) Teller # Eos # Lymph # (Auto) Teller # (Auto) Eos # (Auto) Seg Neutrophils % Seg Neuts % (Manual) Baso # (Auto) Lymphocytes % (Manual) Monocytes % (Manual) Eosinophils % (Manual) Basophils % (Manual) Seg Neutrophils # Seg Neutrophils # Man Lymphocytes # (Manual) Monocytes # (Manual) Eosinophils # (Manual) Nucleated RBC % Basophils # (Manual) PT INR APTT Heparin Anti-Xa Level ABG pH POC ABG pO2 ABG pO2 ABG HCO3 ABG O2 Saturation ABG Base Excess POC ABG pCO2 ABG Hemoglobin ABG Oxyhemoglobin ABG Chloride ABG Glucose Oxyhemoglobin Sodium Potassium Chloride Carbon Dioxide BUN Creatinine 0.7 L Glucose 110 H POC Glucose 129 H 117 H Lactic Acid Calcium Phosphorus Magnesium AST ALT Lactate Dehydrogenase Total Bilirubin Direct Bilirubin CK-MB (CK-2) C-Reactive Protein NT-Pro-B Natriuret Pep Total Protein Albumin Arterial Blood Glucose Urine WBC (Auto) Urine Creatinine 01/10/20 01/11/20 01/11/20 23:52 03:19 12:09 WBC RBC Hgb Hct MCHC RDW MCV MCH Lymph % (Auto) Teller % (Auto) Teller # Eos # Lymph # (Auto) Teller # (Auto) Eos # (Auto) Seg Neutrophils % Seg Neuts % (Manual) Baso # (Auto) Lymphocytes % (Manual) Monocytes % (Manual) Eosinophils % (Manual) Basophils % (Manual) Seg Neutrophils # Seg Neutrophils # Man Lymphocytes # (Manual) Monocytes # (Manual) Eosinophils # (Manual) Nucleated RBC % Basophils # (Manual) PT INR APTT Heparin Anti-Xa Level ABG pH POC ABG pO2 ABG pO2 ABG HCO3 ABG O2 Saturation ABG Base Excess POC ABG pCO2 ABG Hemoglobin ABG Oxyhemoglobin ABG Chloride ABG Glucose Oxyhemoglobin Sodium Potassium Chloride Carbon Dioxide BUN Creatinine Glucose POC Glucose 117 H 136 H 115 H Lactic Acid Calcium Phosphorus Magnesium AST ALT Lactate Dehydrogenase Total Bilirubin Direct Bilirubin CK-MB (CK-2) C-Reactive Protein NT-Pro-B Natriuret Pep Total Protein Albumin Arterial Blood Glucose Urine WBC (Auto) Urine Creatinine 01/11/20 01/11/20 01/12/20 18:27 23:28 00:23 WBC RBC Hgb 9.8 L Hct 31.6 L MCHC 31 L RDW 17.8 H MCV 83 L MCH 26 L Lymph % (Auto) Teller % (Auto) 8.0 H Teller # Eos # Lymph # (Auto) Teller # (Auto) Eos # (Auto) Seg Neutrophils % Seg Neuts % (Manual) Baso # (Auto) Lymphocytes % (Manual) Monocytes % (Manual) Eosinophils % (Manual) Basophils % (Manual) Seg Neutrophils # Seg Neutrophils # Man Lymphocytes # (Manual) Monocytes # (Manual) Eosinophils # (Manual) Nucleated RBC % Basophils # (Manual) PT INR APTT Heparin Anti-Xa Level ABG pH POC ABG pO2 ABG pO2 ABG HCO3 ABG O2 Saturation ABG Base Excess POC ABG pCO2 ABG Hemoglobin ABG Oxyhemoglobin ABG Chloride ABG Glucose Oxyhemoglobin Sodium Potassium Chloride Carbon Dioxide BUN Creatinine Glucose POC Glucose 118 H 122 H Lactic Acid Calcium Phosphorus Magnesium AST ALT Lactate Dehydrogenase Total Bilirubin Direct Bilirubin CK-MB (CK-2) C-Reactive Protein NT-Pro-B Natriuret Pep Total Protein Albumin Arterial Blood Glucose Urine WBC (Auto) Urine Creatinine 01/12/20 01/12/20 01/12/20 00:23 04:18 04:18 WBC RBC Hgb 9.6 L Hct 30.9 L MCHC 31 L RDW 17.3 H MCV 81 L MCH 25 L Lymph % (Auto) Teller % (Auto) Teller # Eos # Lymph # (Auto) Teller # (Auto) Eos # (Auto) Seg Neutrophils % Seg Neuts % (Manual) Baso # (Auto) Lymphocytes % (Manual) Monocytes % (Manual) Eosinophils % (Manual) Basophils % (Manual) Seg Neutrophils # Seg Neutrophils # Man Lymphocytes # (Manual) Monocytes # (Manual) Eosinophils # (Manual) Nucleated RBC % Basophils # (Manual) PT INR APTT Heparin Anti-Xa Level ABG pH POC ABG pO2 ABG pO2 ABG HCO3 ABG O2 Saturation ABG Base Excess POC ABG pCO2 ABG Hemoglobin ABG Oxyhemoglobin ABG Chloride ABG Glucose Oxyhemoglobin Sodium Potassium Chloride Carbon Dioxide BUN Creatinine 0.7 L 0.7 L Glucose 111 H 108 H POC Glucose Lactic Acid Calcium Phosphorus Magnesium AST ALT Lactate Dehydrogenase Total Bilirubin Direct Bilirubin CK-MB (CK-2) C-Reactive Protein NT-Pro-B Natriuret Pep Total Protein Albumin 2.6 L Arterial Blood Glucose Urine WBC (Auto) Urine Creatinine 01/12/20 01/12/20 01/12/20 06:03 12:27 13:58 WBC RBC Hgb Hct MCHC RDW MCV MCH Lymph % (Auto) Teller % (Auto) Teller # Eos # Lymph # (Auto) Teller # (Auto) Eos # (Auto) Seg Neutrophils % Seg Neuts % (Manual) Baso # (Auto) Lymphocytes % (Manual) Monocytes % (Manual) Eosinophils % (Manual) Basophils % (Manual) Seg Neutrophils # Seg Neutrophils # Man Lymphocytes # (Manual) Monocytes # (Manual) Eosinophils # (Manual) Nucleated RBC % Basophils # (Manual) PT INR APTT Heparin Anti-Xa Level ABG pH 7.453 H POC ABG pO2 76.6 L ABG pO2 ABG HCO3 ABG O2 Saturation ABG Base Excess POC ABG pCO2 ABG Hemoglobin 10.3 L ABG Oxyhemoglobin ABG Chloride ABG Glucose 99 H Oxyhemoglobin Sodium Potassium Chloride Carbon Dioxide BUN Creatinine Glucose POC Glucose 128 H 121 H Lactic Acid Calcium Phosphorus Magnesium AST ALT Lactate Dehydrogenase Total Bilirubin Direct Bilirubin CK-MB (CK-2) C-Reactive Protein NT-Pro-B Natriuret Pep Total Protein Albumin Arterial Blood Glucose 99 H Urine WBC (Auto) Urine Creatinine 01/12/20 01/13/20 01/13/20 18:24 12:01 17:46 WBC RBC Hgb Hct MCHC RDW MCV MCH Lymph % (Auto) Teller % (Auto) Teller # Eos # Lymph # (Auto) Teller # (Auto) Eos # (Auto) Seg Neutrophils % Seg Neuts % (Manual) Baso # (Auto) Lymphocytes % (Manual) Monocytes % (Manual) Eosinophils % (Manual) Basophils % (Manual) Seg Neutrophils # Seg Neutrophils # Man Lymphocytes # (Manual) Monocytes # (Manual) Eosinophils # (Manual) Nucleated RBC % Basophils # (Manual) PT INR APTT Heparin Anti-Xa Level ABG pH POC ABG pO2 ABG pO2 ABG HCO3 ABG O2 Saturation ABG Base Excess POC ABG pCO2 ABG Hemoglobin ABG Oxyhemoglobin ABG Chloride ABG Glucose Oxyhemoglobin Sodium Potassium Chloride Carbon Dioxide BUN Creatinine Glucose POC Glucose 119 H 107 H 124 H Lactic Acid Calcium Phosphorus Magnesium AST ALT Lactate Dehydrogenase Total Bilirubin Direct Bilirubin CK-MB (CK-2) C-Reactive Protein NT-Pro-B Natriuret Pep Total Protein Albumin Arterial Blood Glucose Urine WBC (Auto) Urine Creatinine 01/13/20 01/14/20 01/14/20 20:40 00:10 05:33 WBC RBC Hgb Hct MCHC RDW MCV MCH Lymph % (Auto) Teller % (Auto) Teller # Eos # Lymph # (Auto) Teller # (Auto) Eos # (Auto) Seg Neutrophils % Seg Neuts % (Manual) Baso # (Auto) Lymphocytes % (Manual) Monocytes % (Manual) Eosinophils % (Manual) Basophils % (Manual) Seg Neutrophils # Seg Neutrophils # Man Lymphocytes # (Manual) Monocytes # (Manual) Eosinophils # (Manual) Nucleated RBC % Basophils # (Manual) PT INR APTT Heparin Anti-Xa Level ABG pH POC ABG pO2 ABG pO2 65.3 L ABG HCO3 31.8 H ABG O2 Saturation 93.5 L ABG Base Excess 6.7 H POC ABG pCO2 ABG Hemoglobin 13.3 L ABG Oxyhemoglobin ABG Chloride ABG Glucose Oxyhemoglobin 90.9 L Sodium Potassium Chloride Carbon Dioxide BUN Creatinine Glucose POC Glucose 111 H 111 H Lactic Acid Calcium Phosphorus Magnesium AST ALT Lactate Dehydrogenase Total Bilirubin Direct Bilirubin CK-MB (CK-2) C-Reactive Protein NT-Pro-B Natriuret Pep Total Protein Albumin Arterial Blood Glucose Urine WBC (Auto) Urine Creatinine 01/14/20 01/14/20 01/14/20 12:10 16:14 16:14 WBC RBC Hgb 10.6 L Hct 34.2 L MCHC 31 L RDW 18.3 H MCV 83 L MCH 26 L Lymph % (Auto) Teller % (Auto) 7.4 H Teller # Eos # Lymph # (Auto) Teller # (Auto) Eos # (Auto) Seg Neutrophils % 71.9 H Seg Neuts % (Manual) Baso # (Auto) Lymphocytes % (Manual) Monocytes % (Manual) Eosinophils % (Manual) Basophils % (Manual) Seg Neutrophils # Seg Neutrophils # Man Lymphocytes # (Manual) Monocytes # (Manual) Eosinophils # (Manual) Nucleated RBC % Basophils # (Manual) PT INR APTT Heparin Anti-Xa Level ABG pH POC ABG pO2 ABG pO2 ABG HCO3 ABG O2 Saturation ABG Base Excess POC ABG pCO2 ABG Hemoglobin ABG Oxyhemoglobin ABG Chloride ABG Glucose Oxyhemoglobin Sodium Potassium Chloride Carbon Dioxide 31 H BUN Creatinine 0.6 L Glucose 131 H POC Glucose 139 H Lactic Acid Calcium Phosphorus Magnesium AST ALT Lactate Dehydrogenase Total Bilirubin Direct Bilirubin CK-MB (CK-2) C-Reactive Protein NT-Pro-B Natriuret Pep Total Protein Albumin Arterial Blood Glucose Urine WBC (Auto) Urine Creatinine 01/14/20 01/15/20 01/15/20 18:05 00:52 05:35 WBC RBC Hgb Hct MCHC RDW MCV MCH Lymph % (Auto) Teller % (Auto) Teller # Eos # Lymph # (Auto) Teller # (Auto) Eos # (Auto) Seg Neutrophils % Seg Neuts % (Manual) Baso # (Auto) Lymphocytes % (Manual) Monocytes % (Manual) Eosinophils % (Manual) Basophils % (Manual) Seg Neutrophils # Seg Neutrophils # Man Lymphocytes # (Manual) Monocytes # (Manual) Eosinophils # (Manual) Nucleated RBC % Basophils # (Manual) PT INR APTT Heparin Anti-Xa Level ABG pH POC ABG pO2 ABG pO2 ABG HCO3 ABG O2 Saturation ABG Base Excess POC ABG pCO2 ABG Hemoglobin ABG Oxyhemoglobin ABG Chloride ABG Glucose Oxyhemoglobin Sodium Potassium Chloride Carbon Dioxide BUN Creatinine Glucose POC Glucose 147 H 140 H 159 H Lactic Acid Calcium Phosphorus Magnesium AST ALT Lactate Dehydrogenase Total Bilirubin Direct Bilirubin CK-MB (CK-2) C-Reactive Protein NT-Pro-B Natriuret Pep Total Protein Albumin Arterial Blood Glucose Urine WBC (Auto) Urine Creatinine 01/15/20 01/15/20 01/16/20 12:52 17:43 00:32 WBC RBC Hgb Hct MCHC RDW MCV MCH Lymph % (Auto) Teller % (Auto) Teller # Eos # Lymph # (Auto) Teller # (Auto) Eos # (Auto) Seg Neutrophils % Seg Neuts % (Manual) Baso # (Auto) Lymphocytes % (Manual) Monocytes % (Manual) Eosinophils % (Manual) Basophils % (Manual) Seg Neutrophils # Seg Neutrophils # Man Lymphocytes # (Manual) Monocytes # (Manual) Eosinophils # (Manual) Nucleated RBC % Basophils # (Manual) PT INR APTT Heparin Anti-Xa Level ABG pH POC ABG pO2 ABG pO2 ABG HCO3 ABG O2 Saturation ABG Base Excess POC ABG pCO2 ABG Hemoglobin ABG Oxyhemoglobin ABG Chloride ABG Glucose Oxyhemoglobin Sodium Potassium Chloride Carbon Dioxide BUN Creatinine Glucose POC Glucose 164 H 167 H 153 H Lactic Acid Calcium Phosphorus Magnesium AST ALT Lactate Dehydrogenase Total Bilirubin Direct Bilirubin CK-MB (CK-2) C-Reactive Protein NT-Pro-B Natriuret Pep Total Protein Albumin Arterial Blood Glucose Urine WBC (Auto) Urine Creatinine 01/16/20 01/16/20 01/17/20 05:46 11:48 06:38 WBC RBC Hgb Hct MCHC RDW MCV MCH Lymph % (Auto) Teller % (Auto) Teller # Eos # Lymph # (Auto) Teller # (Auto) Eos # (Auto) Seg Neutrophils % Seg Neuts % (Manual) Baso # (Auto) Lymphocytes % (Manual) Monocytes % (Manual) Eosinophils % (Manual) Basophils % (Manual) Seg Neutrophils # Seg Neutrophils # Man Lymphocytes # (Manual) Monocytes # (Manual) Eosinophils # (Manual) Nucleated RBC % Basophils # (Manual) PT INR APTT Heparin Anti-Xa Level ABG pH POC ABG pO2 ABG pO2 ABG HCO3 ABG O2 Saturation ABG Base Excess POC ABG pCO2 ABG Hemoglobin ABG Oxyhemoglobin ABG Chloride ABG Glucose Oxyhemoglobin Sodium Potassium Chloride Carbon Dioxide BUN Creatinine Glucose POC Glucose 163 H 155 H 116 H Lactic Acid Calcium Phosphorus Magnesium AST ALT Lactate Dehydrogenase Total Bilirubin Direct Bilirubin CK-MB (CK-2) C-Reactive Protein NT-Pro-B Natriuret Pep Total Protein Albumin Arterial Blood Glucose Urine WBC (Auto) Urine Creatinine 01/17/20 01/17/20 01/18/20 11:36 17:43 00:12 WBC RBC Hgb Hct MCHC RDW MCV MCH Lymph % (Auto) Teller % (Auto) Teller # Eos # Lymph # (Auto) Teller # (Auto) Eos # (Auto) Seg Neutrophils % Seg Neuts % (Manual) Baso # (Auto) Lymphocytes % (Manual) Monocytes % (Manual) Eosinophils % (Manual) Basophils % (Manual) Seg Neutrophils # Seg Neutrophils # Man Lymphocytes # (Manual) Monocytes # (Manual) Eosinophils # (Manual) Nucleated RBC % Basophils # (Manual) PT INR APTT Heparin Anti-Xa Level ABG pH POC ABG pO2 ABG pO2 ABG HCO3 ABG O2 Saturation ABG Base Excess POC ABG pCO2 ABG Hemoglobin ABG Oxyhemoglobin ABG Chloride ABG Glucose Oxyhemoglobin Sodium Potassium Chloride Carbon Dioxide BUN Creatinine Glucose POC Glucose 110 H 134 H 108 H Lactic Acid Calcium Phosphorus Magnesium AST ALT Lactate Dehydrogenase Total Bilirubin Direct Bilirubin CK-MB (CK-2) C-Reactive Protein NT-Pro-B Natriuret Pep Total Protein Albumin Arterial Blood Glucose Urine WBC (Auto) Urine Creatinine 01/18/20 01/18/20 01/18/20 05:37 06:46 06:46 WBC RBC Hgb 10.1 L Hct 32.2 L MCHC 31 L RDW 18.1 H MCV 81 L MCH 25 L Lymph % (Auto) Teller % (Auto) Teller # Eos # Lymph # (Auto) Teller # (Auto) Eos # (Auto) Seg Neutrophils % 71.9 H Seg Neuts % (Manual) Baso # (Auto) Lymphocytes % (Manual) Monocytes % (Manual) Eosinophils % (Manual) Basophils % (Manual) Seg Neutrophils # Seg Neutrophils # Man Lymphocytes # (Manual) Monocytes # (Manual) Eosinophils # (Manual) Nucleated RBC % Basophils # (Manual) PT INR APTT Heparin Anti-Xa Level ABG pH POC ABG pO2 ABG pO2 ABG HCO3 ABG O2 Saturation ABG Base Excess POC ABG pCO2 ABG Hemoglobin ABG Oxyhemoglobin ABG Chloride ABG Glucose Oxyhemoglobin Sodium Potassium Chloride Carbon Dioxide BUN Creatinine 0.7 L Glucose 155 H POC Glucose 168 H Lactic Acid Calcium Phosphorus Magnesium AST ALT Lactate Dehydrogenase Total Bilirubin Direct Bilirubin CK-MB (CK-2) C-Reactive Protein NT-Pro-B Natriuret Pep Total Protein Albumin Arterial Blood Glucose Urine WBC (Auto) Urine Creatinine 01/18/20 01/18/20 01/18/20 12:05 17:14 23:28 WBC RBC Hgb Hct MCHC RDW MCV MCH Lymph % (Auto) Teller % (Auto) Teller # Eos # Lymph # (Auto) Teller # (Auto) Eos # (Auto) Seg Neutrophils % Seg Neuts % (Manual) Baso # (Auto) Lymphocytes % (Manual) Monocytes % (Manual) Eosinophils % (Manual) Basophils % (Manual) Seg Neutrophils # Seg Neutrophils # Man Lymphocytes # (Manual) Monocytes # (Manual) Eosinophils # (Manual) Nucleated RBC % Basophils # (Manual) PT INR APTT Heparin Anti-Xa Level ABG pH POC ABG pO2 ABG pO2 ABG HCO3 ABG O2 Saturation ABG Base Excess POC ABG pCO2 ABG Hemoglobin ABG Oxyhemoglobin ABG Chloride ABG Glucose Oxyhemoglobin Sodium Potassium Chloride Carbon Dioxide BUN Creatinine Glucose POC Glucose 128 H 126 H 128 H Lactic Acid Calcium Phosphorus Magnesium AST ALT Lactate Dehydrogenase Total Bilirubin Direct Bilirubin CK-MB (CK-2) C-Reactive Protein NT-Pro-B Natriuret Pep Total Protein Albumin Arterial Blood Glucose Urine WBC (Auto) Urine Creatinine 01/19/20 01/19/20 01/19/20 05:39 12:33 17:36 WBC RBC Hgb Hct MCHC RDW MCV MCH Lymph % (Auto) Teller % (Auto) Teller # Eos # Lymph # (Auto) Teller # (Auto) Eos # (Auto) Seg Neutrophils % Seg Neuts % (Manual) Baso # (Auto) Lymphocytes % (Manual) Monocytes % (Manual) Eosinophils % (Manual) Basophils % (Manual) Seg Neutrophils # Seg Neutrophils # Man Lymphocytes # (Manual) Monocytes # (Manual) Eosinophils # (Manual) Nucleated RBC % Basophils # (Manual) PT INR APTT Heparin Anti-Xa Level ABG pH POC ABG pO2 ABG pO2 ABG HCO3 ABG O2 Saturation ABG Base Excess POC ABG pCO2 ABG Hemoglobin ABG Oxyhemoglobin ABG Chloride ABG Glucose Oxyhemoglobin Sodium Potassium Chloride Carbon Dioxide BUN Creatinine Glucose POC Glucose 164 H 171 H 152 H Lactic Acid Calcium Phosphorus Magnesium AST ALT Lactate Dehydrogenase Total Bilirubin Direct Bilirubin CK-MB (CK-2) C-Reactive Protein NT-Pro-B Natriuret Pep Total Protein Albumin Arterial Blood Glucose Urine WBC (Auto) Urine Creatinine 01/20/20 01/20/20 01/20/20 00:12 05:20 05:35 WBC RBC Hgb 9.2 L Hct 29.4 L MCHC 31 L RDW 17.9 H MCV 81 L MCH 25 L Lymph % (Auto) Teller % (Auto) Teller # Eos # Lymph # (Auto) Teller # (Auto) Eos # (Auto) Seg Neutrophils % Seg Neuts % (Manual) Baso # (Auto) Lymphocytes % (Manual) Monocytes % (Manual) Eosinophils % (Manual) Basophils % (Manual) Seg Neutrophils # Seg Neutrophils # Man Lymphocytes # (Manual) Monocytes # (Manual) Eosinophils # (Manual) Nucleated RBC % Basophils # (Manual) PT INR APTT Heparin Anti-Xa Level ABG pH POC ABG pO2 ABG pO2 ABG HCO3 ABG O2 Saturation ABG Base Excess POC ABG pCO2 ABG Hemoglobin ABG Oxyhemoglobin ABG Chloride ABG Glucose Oxyhemoglobin Sodium Potassium Chloride Carbon Dioxide BUN Creatinine Glucose POC Glucose 120 H 136 H Lactic Acid Calcium Phosphorus Magnesium AST ALT Lactate Dehydrogenase Total Bilirubin Direct Bilirubin CK-MB (CK-2) C-Reactive Protein NT-Pro-B Natriuret Pep Total Protein Albumin Arterial Blood Glucose Urine WBC (Auto) Urine Creatinine 01/20/20 01/20/20 01/20/20 05:40 11:58 14:55 WBC RBC Hgb 9.0 L Hct 28.3 L MCHC RDW MCV MCH Lymph % (Auto) Teller % (Auto) Teller # Eos # Lymph # (Auto) Teller # (Auto) Eos # (Auto) Seg Neutrophils % Seg Neuts % (Manual) Baso # (Auto) Lymphocytes % (Manual) Monocytes % (Manual) Eosinophils % (Manual) Basophils % (Manual) Seg Neutrophils # Seg Neutrophils # Man Lymphocytes # (Manual) Monocytes # (Manual) Eosinophils # (Manual) Nucleated RBC % Basophils # (Manual) PT INR APTT Heparin Anti-Xa Level ABG pH POC ABG pO2 ABG pO2 ABG HCO3 ABG O2 Saturation ABG Base Excess POC ABG pCO2 ABG Hemoglobin ABG Oxyhemoglobin ABG Chloride ABG Glucose Oxyhemoglobin Sodium Potassium Chloride Carbon Dioxide 32 H BUN 22 H Creatinine 0.7 L Glucose 128 H POC Glucose 152 H Lactic Acid Calcium Phosphorus Magnesium AST ALT Lactate Dehydrogenase Total Bilirubin Direct Bilirubin CK-MB (CK-2) C-Reactive Protein NT-Pro-B Natriuret Pep Total Protein Albumin Arterial Blood Glucose Urine WBC (Auto) Urine Creatinine 01/20/20 01/20/20 01/20/20 14:55 18:14 21:35 WBC RBC Hgb Hct MCHC RDW MCV MCH Lymph % (Auto) Teller % (Auto) Teller # Eos # Lymph # (Auto) Teller # (Auto) Eos # (Auto) Seg Neutrophils % Seg Neuts % (Manual) Baso # (Auto) Lymphocytes % (Manual) Monocytes % (Manual) Eosinophils % (Manual) Basophils % (Manual) Seg Neutrophils # Seg Neutrophils # Man Lymphocytes # (Manual) Monocytes # (Manual) Eosinophils # (Manual) Nucleated RBC % Basophils # (Manual) PT 20.4 H INR 1.72 H APTT 40.6 H Heparin Anti-Xa Level > 2.00 H ABG pH POC ABG pO2 ABG pO2 ABG HCO3 ABG O2 Saturation ABG Base Excess POC ABG pCO2 ABG Hemoglobin ABG Oxyhemoglobin ABG Chloride ABG Glucose Oxyhemoglobin Sodium Potassium Chloride Carbon Dioxide BUN Creatinine Glucose POC Glucose 150 H Lactic Acid Calcium Phosphorus Magnesium AST ALT Lactate Dehydrogenase Total Bilirubin Direct Bilirubin CK-MB (CK-2) C-Reactive Protein NT-Pro-B Natriuret Pep Total Protein Albumin Arterial Blood Glucose Urine WBC (Auto) Urine Creatinine 01/21/20 01/21/20 01/21/20 00:30 05:47 05:59 WBC RBC Hgb Hct MCHC RDW MCV MCH Lymph % (Auto) Teller % (Auto) Teller # Eos # Lymph # (Auto) Teller # (Auto) Eos # (Auto) Seg Neutrophils % Seg Neuts % (Manual) Baso # (Auto) Lymphocytes % (Manual) Monocytes % (Manual) Eosinophils % (Manual) Basophils % (Manual) Seg Neutrophils # Seg Neutrophils # Man Lymphocytes # (Manual) Monocytes # (Manual) Eosinophils # (Manual) Nucleated RBC % Basophils # (Manual) PT INR APTT Heparin Anti-Xa Level 1.93 H ABG pH POC ABG pO2 ABG pO2 ABG HCO3 ABG O2 Saturation ABG Base Excess POC ABG pCO2 ABG Hemoglobin ABG Oxyhemoglobin ABG Chloride ABG Glucose Oxyhemoglobin Sodium Potassium Chloride Carbon Dioxide BUN Creatinine Glucose POC Glucose 126 H 148 H Lactic Acid Calcium Phosphorus Magnesium AST ALT Lactate Dehydrogenase Total Bilirubin Direct Bilirubin CK-MB (CK-2) C-Reactive Protein NT-Pro-B Natriuret Pep Total Protein Albumin Arterial Blood Glucose Urine WBC (Auto) Urine Creatinine 01/21/20 01/21/20 01/21/20 12:32 18:20 23:54 WBC RBC Hgb Hct MCHC RDW MCV MCH Lymph % (Auto) Teller % (Auto) Teller # Eos # Lymph # (Auto) Teller # (Auto) Eos # (Auto) Seg Neutrophils % Seg Neuts % (Manual) Baso # (Auto) Lymphocytes % (Manual) Monocytes % (Manual) Eosinophils % (Manual) Basophils % (Manual) Seg Neutrophils # Seg Neutrophils # Man Lymphocytes # (Manual) Monocytes # (Manual) Eosinophils # (Manual) Nucleated RBC % Basophils # (Manual) PT INR APTT Heparin Anti-Xa Level 1.28 H ABG pH POC ABG pO2 ABG pO2 ABG HCO3 ABG O2 Saturation ABG Base Excess POC ABG pCO2 ABG Hemoglobin ABG Oxyhemoglobin ABG Chloride ABG Glucose Oxyhemoglobin Sodium Potassium Chloride Carbon Dioxide BUN Creatinine Glucose POC Glucose 112 H 146 H Lactic Acid Calcium Phosphorus Magnesium AST ALT Lactate Dehydrogenase Total Bilirubin Direct Bilirubin CK-MB (CK-2) C-Reactive Protein NT-Pro-B Natriuret Pep Total Protein Albumin Arterial Blood Glucose Urine WBC (Auto) Urine Creatinine 01/22/20 01/22/20 01/22/20 04:45 04:45 05:48 WBC RBC Hgb 9.3 L Hct 29.0 L MCHC RDW MCV MCH Lymph % (Auto) Teller % (Auto) Teller # Eos # Lymph # (Auto) Teller # (Auto) Eos # (Auto) Seg Neutrophils % Seg Neuts % (Manual) Baso # (Auto) Lymphocytes % (Manual) Monocytes % (Manual) Eosinophils % (Manual) Basophils % (Manual) Seg Neutrophils # Seg Neutrophils # Man Lymphocytes # (Manual) Monocytes # (Manual) Eosinophils # (Manual) Nucleated RBC % Basophils # (Manual) PT INR APTT Heparin Anti-Xa Level 1.34 H ABG pH POC ABG pO2 ABG pO2 ABG HCO3 ABG O2 Saturation ABG Base Excess POC ABG pCO2 ABG Hemoglobin ABG Oxyhemoglobin ABG Chloride ABG Glucose Oxyhemoglobin Sodium Potassium Chloride Carbon Dioxide BUN Creatinine Glucose POC Glucose 142 H Lactic Acid Calcium Phosphorus Magnesium AST ALT Lactate Dehydrogenase Total Bilirubin Direct Bilirubin CK-MB (CK-2) C-Reactive Protein NT-Pro-B Natriuret Pep Total Protein Albumin Arterial Blood Glucose Urine WBC (Auto) Urine Creatinine 01/22/20 01/22/20 01/22/20 08:09 08:22 09:58 WBC RBC Hgb Hct MCHC RDW MCV MCH Lymph % (Auto) Teller % (Auto) Teller # Eos # Lymph # (Auto) Teller # (Auto) Eos # (Auto) Seg Neutrophils % Seg Neuts % (Manual) Baso # (Auto) Lymphocytes % (Manual) Monocytes % (Manual) Eosinophils % (Manual) Basophils % (Manual) Seg Neutrophils # Seg Neutrophils # Man Lymphocytes # (Manual) Monocytes # (Manual) Eosinophils # (Manual) Nucleated RBC % Basophils # (Manual) PT 16.9 H INR 1.34 H APTT Heparin Anti-Xa Level ABG pH POC ABG pO2 ABG pO2 ABG HCO3 ABG O2 Saturation ABG Base Excess POC ABG pCO2 ABG Hemoglobin ABG Oxyhemoglobin ABG Chloride ABG Glucose Oxyhemoglobin Sodium Potassium Chloride 97.8 L Carbon Dioxide BUN 29 H Creatinine Glucose 128 H POC Glucose 131 H Lactic Acid Calcium Phosphorus Magnesium AST ALT Lactate Dehydrogenase Total Bilirubin Direct Bilirubin CK-MB (CK-2) C-Reactive Protein NT-Pro-B Natriuret Pep Total Protein Albumin Arterial Blood Glucose Urine WBC (Auto) Urine Creatinine 01/22/20 01/22/20 01/22/20 12:44 16:13 18:18 WBC RBC Hgb Hct MCHC RDW MCV MCH Lymph % (Auto) Teller % (Auto) Teller # Eos # Lymph # (Auto) Teller # (Auto) Eos # (Auto) Seg Neutrophils % Seg Neuts % (Manual) Baso # (Auto) Lymphocytes % (Manual) Monocytes % (Manual) Eosinophils % (Manual) Basophils % (Manual) Seg Neutrophils # Seg Neutrophils # Man Lymphocytes # (Manual) Monocytes # (Manual) Eosinophils # (Manual) Nucleated RBC % Basophils # (Manual) PT INR APTT Heparin Anti-Xa Level ABG pH POC ABG pO2 ABG pO2 ABG HCO3 ABG O2 Saturation ABG Base Excess POC ABG pCO2 ABG Hemoglobin ABG Oxyhemoglobin ABG Chloride ABG Glucose Oxyhemoglobin Sodium Potassium Chloride Carbon Dioxide BUN Creatinine Glucose POC Glucose 156 H 133 H 155 H Lactic Acid Calcium Phosphorus Magnesium AST ALT Lactate Dehydrogenase Total Bilirubin Direct Bilirubin CK-MB (CK-2) C-Reactive Protein NT-Pro-B Natriuret Pep Total Protein Albumin Arterial Blood Glucose Urine WBC (Auto) Urine Creatinine 01/22/20 01/23/20 01/23/20 23:22 05:37 12:59 WBC RBC Hgb Hct MCHC RDW MCV MCH Lymph % (Auto) Teller % (Auto) Teller # Eos # Lymph # (Auto) Teller # (Auto) Eos # (Auto) Seg Neutrophils % Seg Neuts % (Manual) Baso # (Auto) Lymphocytes % (Manual) Monocytes % (Manual) Eosinophils % (Manual) Basophils % (Manual) Seg Neutrophils # Seg Neutrophils # Man Lymphocytes # (Manual) Monocytes # (Manual) Eosinophils # (Manual) Nucleated RBC % Basophils # (Manual) PT INR APTT Heparin Anti-Xa Level ABG pH POC ABG pO2 ABG pO2 ABG HCO3 ABG O2 Saturation ABG Base Excess POC ABG pCO2 ABG Hemoglobin ABG Oxyhemoglobin ABG Chloride ABG Glucose Oxyhemoglobin Sodium Potassium Chloride Carbon Dioxide BUN Creatinine Glucose POC Glucose 148 H 163 H 175 H Lactic Acid Calcium Phosphorus Magnesium AST ALT Lactate Dehydrogenase Total Bilirubin Direct Bilirubin CK-MB (CK-2) C-Reactive Protein NT-Pro-B Natriuret Pep Total Protein Albumin Arterial Blood Glucose Urine WBC (Auto) Urine Creatinine 01/23/20 01/23/20 01/24/20 17:28 23:56 04:30 WBC RBC 3.46 L Hgb 8.8 L Hct 27.8 L MCHC RDW 18.2 H MCV 81 L MCH 25 L Lymph % (Auto) Teller % (Auto) 7.8 H Teller # Eos # Lymph # (Auto) Teller # (Auto) Eos # (Auto) Seg Neutrophils % Seg Neuts % (Manual) Baso # (Auto) Lymphocytes % (Manual) Monocytes % (Manual) Eosinophils % (Manual) Basophils % (Manual) Seg Neutrophils # Seg Neutrophils # Man Lymphocytes # (Manual) Monocytes # (Manual) Eosinophils # (Manual) Nucleated RBC % Basophils # (Manual) PT INR APTT Heparin Anti-Xa Level ABG pH POC ABG pO2 ABG pO2 ABG HCO3 ABG O2 Saturation ABG Base Excess POC ABG pCO2 ABG Hemoglobin ABG Oxyhemoglobin ABG Chloride ABG Glucose Oxyhemoglobin Sodium Potassium Chloride Carbon Dioxide BUN Creatinine Glucose POC Glucose 165 H 177 H Lactic Acid Calcium Phosphorus Magnesium AST ALT Lactate Dehydrogenase Total Bilirubin Direct Bilirubin CK-MB (CK-2) C-Reactive Protein NT-Pro-B Natriuret Pep Total Protein Albumin Arterial Blood Glucose Urine WBC (Auto) Urine Creatinine 01/24/20 01/24/20 01/24/20 04:30 07:18 12:06 WBC RBC Hgb Hct MCHC RDW MCV MCH Lymph % (Auto) Teller % (Auto) Teller # Eos # Lymph # (Auto) Teller # (Auto) Eos # (Auto) Seg Neutrophils % Seg Neuts % (Manual) Baso # (Auto) Lymphocytes % (Manual) Monocytes % (Manual) Eosinophils % (Manual) Basophils % (Manual) Seg Neutrophils # Seg Neutrophils # Man Lymphocytes # (Manual) Monocytes # (Manual) Eosinophils # (Manual) Nucleated RBC % Basophils # (Manual) PT INR APTT Heparin Anti-Xa Level ABG pH POC ABG pO2 ABG pO2 ABG HCO3 ABG O2 Saturation ABG Base Excess POC ABG pCO2 ABG Hemoglobin ABG Oxyhemoglobin ABG Chloride ABG Glucose Oxyhemoglobin Sodium Potassium Chloride 97.9 L Carbon Dioxide BUN 31 H Creatinine Glucose 146 H POC Glucose 151 H 133 H Lactic Acid Calcium Phosphorus Magnesium AST ALT Lactate Dehydrogenase Total Bilirubin Direct Bilirubin CK-MB (CK-2) C-Reactive Protein NT-Pro-B Natriuret Pep Total Protein Albumin Arterial Blood Glucose Urine WBC (Auto) Urine Creatinine 01/24/20 01/25/20 01/25/20 17:36 00:08 04:25 WBC RBC 3.50 L Hgb 8.7 L Hct 27.9 L MCHC 31 L RDW 18.2 H MCV 80 L MCH 25 L Lymph % (Auto) Teller % (Auto) 8.5 H Teller # Eos # Lymph # (Auto) Teller # (Auto) Eos # (Auto) Seg Neutrophils % Seg Neuts % (Manual) Baso # (Auto) Lymphocytes % (Manual) Monocytes % (Manual) Eosinophils % (Manual) Basophils % (Manual) Seg Neutrophils # Seg Neutrophils # Man Lymphocytes # (Manual) Monocytes # (Manual) Eosinophils # (Manual) Nucleated RBC % Basophils # (Manual) PT INR APTT Heparin Anti-Xa Level ABG pH POC ABG pO2 ABG pO2 ABG HCO3 ABG O2 Saturation ABG Base Excess POC ABG pCO2 ABG Hemoglobin ABG Oxyhemoglobin ABG Chloride ABG Glucose Oxyhemoglobin Sodium Potassium Chloride Carbon Dioxide BUN Creatinine Glucose POC Glucose 133 H 129 H Lactic Acid Calcium Phosphorus Magnesium AST ALT Lactate Dehydrogenase Total Bilirubin Direct Bilirubin CK-MB (CK-2) C-Reactive Protein NT-Pro-B Natriuret Pep Total Protein Albumin Arterial Blood Glucose Urine WBC (Auto) Urine Creatinine 01/25/20 01/25/20 01/25/20 04:25 05:38 11:52 WBC RBC Hgb Hct MCHC RDW MCV MCH Lymph % (Auto) Teller % (Auto) Teller # Eos # Lymph # (Auto) Teller # (Auto) Eos # (Auto) Seg Neutrophils % Seg Neuts % (Manual) Baso # (Auto) Lymphocytes % (Manual) Monocytes % (Manual) Eosinophils % (Manual) Basophils % (Manual) Seg Neutrophils # Seg Neutrophils # Man Lymphocytes # (Manual) Monocytes # (Manual) Eosinophils # (Manual) Nucleated RBC % Basophils # (Manual) PT INR APTT Heparin Anti-Xa Level ABG pH POC ABG pO2 ABG pO2 ABG HCO3 ABG O2 Saturation ABG Base Excess POC ABG pCO2 ABG Hemoglobin ABG Oxyhemoglobin ABG Chloride ABG Glucose Oxyhemoglobin Sodium Potassium Chloride Carbon Dioxide BUN 30 H Creatinine Glucose 134 H POC Glucose 129 H 134 H Lactic Acid Calcium Phosphorus Magnesium AST ALT Lactate Dehydrogenase Total Bilirubin Direct Bilirubin CK-MB (CK-2) C-Reactive Protein NT-Pro-B Natriuret Pep Total Protein Albumin Arterial Blood Glucose Urine WBC (Auto) Urine Creatinine 01/25/20 01/25/20 01/26/20 17:13 21:02 00:59 WBC RBC Hgb Hct MCHC RDW MCV MCH Lymph % (Auto) Teller % (Auto) Teller # Eos # Lymph # (Auto) Teller # (Auto) Eos # (Auto) Seg Neutrophils % Seg Neuts % (Manual) Baso # (Auto) Lymphocytes % (Manual) Monocytes % (Manual) Eosinophils % (Manual) Basophils % (Manual) Seg Neutrophils # Seg Neutrophils # Man Lymphocytes # (Manual) Monocytes # (Manual) Eosinophils # (Manual) Nucleated RBC % Basophils # (Manual) PT INR APTT Heparin Anti-Xa Level ABG pH POC ABG pO2 ABG pO2 57.5 L ABG HCO3 31.7 H ABG O2 Saturation 90.3 L ABG Base Excess 6.6 H POC ABG pCO2 ABG Hemoglobin 13.0 L ABG Oxyhemoglobin ABG Chloride ABG Glucose Oxyhemoglobin 87.5 L Sodium Potassium Chloride Carbon Dioxide BUN Creatinine Glucose POC Glucose 124 H 196 H Lactic Acid Calcium Phosphorus Magnesium AST ALT Lactate Dehydrogenase Total Bilirubin Direct Bilirubin CK-MB (CK-2) C-Reactive Protein NT-Pro-B Natriuret Pep Total Protein Albumin Arterial Blood Glucose Urine WBC (Auto) Urine Creatinine 01/26/20 01/26/20 01/26/20 03:20 05:46 12:46 WBC RBC Hgb 9.2 L Hct 29.4 L MCHC RDW MCV MCH Lymph % (Auto) Teller % (Auto) Teller # Eos # Lymph # (Auto) Teller # (Auto) Eos # (Auto) Seg Neutrophils % Seg Neuts % (Manual) Baso # (Auto) Lymphocytes % (Manual) Monocytes % (Manual) Eosinophils % (Manual) Basophils % (Manual) Seg Neutrophils # Seg Neutrophils # Man Lymphocytes # (Manual) Monocytes # (Manual) Eosinophils # (Manual) Nucleated RBC % Basophils # (Manual) PT INR APTT Heparin Anti-Xa Level ABG pH POC ABG pO2 ABG pO2 ABG HCO3 ABG O2 Saturation ABG Base Excess POC ABG pCO2 ABG Hemoglobin ABG Oxyhemoglobin ABG Chloride ABG Glucose Oxyhemoglobin Sodium Potassium Chloride Carbon Dioxide BUN Creatinine Glucose POC Glucose 141 H 122 H Lactic Acid Calcium Phosphorus Magnesium AST ALT Lactate Dehydrogenase Total Bilirubin Direct Bilirubin CK-MB (CK-2) C-Reactive Protein NT-Pro-B Natriuret Pep Total Protein Albumin Arterial Blood Glucose Urine WBC (Auto) Urine Creatinine 01/26/20 01/26/20 01/27/20 18:03 23:55 04:47 WBC RBC Hgb Hct MCHC RDW MCV MCH Lymph % (Auto) Teller % (Auto) Teller # Eos # Lymph # (Auto) Teller # (Auto) Eos # (Auto) Seg Neutrophils % Seg Neuts % (Manual) Baso # (Auto) Lymphocytes % (Manual) Monocytes % (Manual) Eosinophils % (Manual) Basophils % (Manual) Seg Neutrophils # Seg Neutrophils # Man Lymphocytes # (Manual) Monocytes # (Manual) Eosinophils # (Manual) Nucleated RBC % Basophils # (Manual) PT INR APTT Heparin Anti-Xa Level ABG pH POC ABG pO2 ABG pO2 ABG HCO3 ABG O2 Saturation ABG Base Excess POC ABG pCO2 ABG Hemoglobin ABG Oxyhemoglobin ABG Chloride ABG Glucose Oxyhemoglobin Sodium Potassium Chloride Carbon Dioxide BUN 30 H Creatinine 0.7 L Glucose 135 H POC Glucose 142 H 159 H Lactic Acid Calcium Phosphorus Magnesium AST ALT Lactate Dehydrogenase Total Bilirubin Direct Bilirubin CK-MB (CK-2) C-Reactive Protein NT-Pro-B Natriuret Pep Total Protein Albumin Arterial Blood Glucose Urine WBC (Auto) Urine Creatinine 01/27/20 01/27/20 01/27/20 05:43 12:06 17:16 WBC RBC Hgb Hct MCHC RDW MCV MCH Lymph % (Auto) Teller % (Auto) Teller # Eos # Lymph # (Auto) Teller # (Auto) Eos # (Auto) Seg Neutrophils % Seg Neuts % (Manual) Baso # (Auto) Lymphocytes % (Manual) Monocytes % (Manual) Eosinophils % (Manual) Basophils % (Manual) Seg Neutrophils # Seg Neutrophils # Man Lymphocytes # (Manual) Monocytes # (Manual) Eosinophils # (Manual) Nucleated RBC % Basophils # (Manual) PT INR APTT Heparin Anti-Xa Level ABG pH POC ABG pO2 ABG pO2 ABG HCO3 ABG O2 Saturation ABG Base Excess POC ABG pCO2 ABG Hemoglobin ABG Oxyhemoglobin ABG Chloride ABG Glucose Oxyhemoglobin Sodium Potassium Chloride Carbon Dioxide BUN Creatinine Glucose POC Glucose 143 H 142 H 128 H Lactic Acid Calcium Phosphorus Magnesium AST ALT Lactate Dehydrogenase Total Bilirubin Direct Bilirubin CK-MB (CK-2) C-Reactive Protein NT-Pro-B Natriuret Pep Total Protein Albumin Arterial Blood Glucose Urine WBC (Auto) Urine Creatinine 01/27/20 01/28/20 01/28/20 23:55 04:37 05:55 WBC RBC Hgb 9.4 L Hct 29.9 L MCHC RDW MCV MCH Lymph % (Auto) Teller % (Auto) Teller # Eos # Lymph # (Auto) Teller # (Auto) Eos # (Auto) Seg Neutrophils % Seg Neuts % (Manual) Baso # (Auto) Lymphocytes % (Manual) Monocytes % (Manual) Eosinophils % (Manual) Basophils % (Manual) Seg Neutrophils # Seg Neutrophils # Man Lymphocytes # (Manual) Monocytes # (Manual) Eosinophils # (Manual) Nucleated RBC % Basophils # (Manual) PT INR APTT Heparin Anti-Xa Level ABG pH POC ABG pO2 ABG pO2 ABG HCO3 ABG O2 Saturation ABG Base Excess POC ABG pCO2 ABG Hemoglobin ABG Oxyhemoglobin ABG Chloride ABG Glucose Oxyhemoglobin Sodium Potassium Chloride Carbon Dioxide BUN Creatinine Glucose POC Glucose 166 H 169 H Lactic Acid Calcium Phosphorus Magnesium AST ALT Lactate Dehydrogenase Total Bilirubin Direct Bilirubin CK-MB (CK-2) C-Reactive Protein NT-Pro-B Natriuret Pep Total Protein Albumin Arterial Blood Glucose Urine WBC (Auto) Urine Creatinine 01/28/20 01/28/20 01/28/20 11:58 17:26 23:46 WBC RBC Hgb Hct MCHC RDW MCV MCH Lymph % (Auto) Teller % (Auto) Teller # Eos # Lymph # (Auto) Teller # (Auto) Eos # (Auto) Seg Neutrophils % Seg Neuts % (Manual) Baso # (Auto) Lymphocytes % (Manual) Monocytes % (Manual) Eosinophils % (Manual) Basophils % (Manual) Seg Neutrophils # Seg Neutrophils # Man Lymphocytes # (Manual) Monocytes # (Manual) Eosinophils # (Manual) Nucleated RBC % Basophils # (Manual) PT INR APTT Heparin Anti-Xa Level ABG pH POC ABG pO2 ABG pO2 ABG HCO3 ABG O2 Saturation ABG Base Excess POC ABG pCO2 ABG Hemoglobin ABG Oxyhemoglobin ABG Chloride ABG Glucose Oxyhemoglobin Sodium Potassium Chloride Carbon Dioxide BUN Creatinine Glucose POC Glucose 130 H 126 H 150 H Lactic Acid Calcium Phosphorus Magnesium AST ALT Lactate Dehydrogenase Total Bilirubin Direct Bilirubin CK-MB (CK-2) C-Reactive Protein NT-Pro-B Natriuret Pep Total Protein Albumin Arterial Blood Glucose Urine WBC (Auto) Urine Creatinine 01/29/20 01/29/20 01/29/20 04:55 06:00 12:28 WBC RBC Hgb Hct MCHC RDW MCV MCH Lymph % (Auto) Teller % (Auto) Teller # Eos # Lymph # (Auto) Teller # (Auto) Eos # (Auto) Seg Neutrophils % Seg Neuts % (Manual) Baso # (Auto) Lymphocytes % (Manual) Monocytes % (Manual) Eosinophils % (Manual) Basophils % (Manual) Seg Neutrophils # Seg Neutrophils # Man Lymphocytes # (Manual) Monocytes # (Manual) Eosinophils # (Manual) Nucleated RBC % Basophils # (Manual) PT INR APTT Heparin Anti-Xa Level ABG pH POC ABG pO2 ABG pO2 ABG HCO3 ABG O2 Saturation ABG Base Excess POC ABG pCO2 ABG Hemoglobin ABG Oxyhemoglobin ABG Chloride ABG Glucose Oxyhemoglobin Sodium Potassium Chloride Carbon Dioxide 34 H BUN Creatinine 0.6 L Glucose 152 H POC Glucose 157 H 156 H Lactic Acid Calcium Phosphorus Magnesium AST ALT Lactate Dehydrogenase Total Bilirubin Direct Bilirubin CK-MB (CK-2) C-Reactive Protein NT-Pro-B Natriuret Pep Total Protein Albumin Arterial Blood Glucose Urine WBC (Auto) Urine Creatinine 01/29/20 01/30/20 01/30/20 19:06 00:29 05:39 WBC RBC Hgb Hct MCHC RDW MCV MCH Lymph % (Auto) Teller % (Auto) Teller # Eos # Lymph # (Auto) Teller # (Auto) Eos # (Auto) Seg Neutrophils % Seg Neuts % (Manual) Baso # (Auto) Lymphocytes % (Manual) Monocytes % (Manual) Eosinophils % (Manual) Basophils % (Manual) Seg Neutrophils # Seg Neutrophils # Man Lymphocytes # (Manual) Monocytes # (Manual) Eosinophils # (Manual) Nucleated RBC % Basophils # (Manual) PT INR APTT Heparin Anti-Xa Level ABG pH POC ABG pO2 ABG pO2 ABG HCO3 ABG O2 Saturation ABG Base Excess POC ABG pCO2 ABG Hemoglobin ABG Oxyhemoglobin ABG Chloride ABG Glucose Oxyhemoglobin Sodium Potassium Chloride Carbon Dioxide BUN Creatinine Glucose POC Glucose 152 H 132 H 159 H Lactic Acid Calcium Phosphorus Magnesium AST ALT Lactate Dehydrogenase Total Bilirubin Direct Bilirubin CK-MB (CK-2) C-Reactive Protein NT-Pro-B Natriuret Pep Total Protein Albumin Arterial Blood Glucose Urine WBC (Auto) Urine Creatinine 01/30/20 01/30/20 01/30/20 12:27 17:42 23:28 WBC RBC Hgb Hct MCHC RDW MCV MCH Lymph % (Auto) Teller % (Auto) Teller # Eos # Lymph # (Auto) Teller # (Auto) Eos # (Auto) Seg Neutrophils % Seg Neuts % (Manual) Baso # (Auto) Lymphocytes % (Manual) Monocytes % (Manual) Eosinophils % (Manual) Basophils % (Manual) Seg Neutrophils # Seg Neutrophils # Man Lymphocytes # (Manual) Monocytes # (Manual) Eosinophils # (Manual) Nucleated RBC % Basophils # (Manual) PT INR APTT Heparin Anti-Xa Level ABG pH POC ABG pO2 ABG pO2 ABG HCO3 ABG O2 Saturation ABG Base Excess POC ABG pCO2 ABG Hemoglobin ABG Oxyhemoglobin ABG Chloride ABG Glucose Oxyhemoglobin Sodium Potassium Chloride Carbon Dioxide BUN Creatinine Glucose POC Glucose 151 H 144 H 164 H Lactic Acid Calcium Phosphorus Magnesium AST ALT Lactate Dehydrogenase Total Bilirubin Direct Bilirubin CK-MB (CK-2) C-Reactive Protein NT-Pro-B Natriuret Pep Total Protein Albumin Arterial Blood Glucose Urine WBC (Auto) Urine Creatinine 01/31/20 01/31/20 01/31/20 05:51 11:51 18:06 WBC RBC Hgb Hct MCHC RDW MCV MCH Lymph % (Auto) Teller % (Auto) Teller # Eos # Lymph # (Auto) Teller # (Auto) Eos # (Auto) Seg Neutrophils % Seg Neuts % (Manual) Baso # (Auto) Lymphocytes % (Manual) Monocytes % (Manual) Eosinophils % (Manual) Basophils % (Manual) Seg Neutrophils # Seg Neutrophils # Man Lymphocytes # (Manual) Monocytes # (Manual) Eosinophils # (Manual) Nucleated RBC % Basophils # (Manual) PT INR APTT Heparin Anti-Xa Level ABG pH POC ABG pO2 ABG pO2 ABG HCO3 ABG O2 Saturation ABG Base Excess POC ABG pCO2 ABG Hemoglobin ABG Oxyhemoglobin ABG Chloride ABG Glucose Oxyhemoglobin Sodium Potassium Chloride Carbon Dioxide BUN Creatinine Glucose POC Glucose 131 H 167 H 210 H Lactic Acid Calcium Phosphorus Magnesium AST ALT Lactate Dehydrogenase Total Bilirubin Direct Bilirubin CK-MB (CK-2) C-Reactive Protein NT-Pro-B Natriuret Pep Total Protein Albumin Arterial Blood Glucose Urine WBC (Auto) Urine Creatinine 01/31/20 01/31/20 02/01/20 19:24 Unknown 00:34 WBC RBC Hgb Hct MCHC RDW MCV MCH Lymph % (Auto) Teller % (Auto) Teller # Eos # Lymph # (Auto) Teller # (Auto) Eos # (Auto) Seg Neutrophils % Seg Neuts % (Manual) Baso # (Auto) Lymphocytes % (Manual) Monocytes % (Manual) Eosinophils % (Manual) Basophils % (Manual) Seg Neutrophils # Seg Neutrophils # Man Lymphocytes # (Manual) Monocytes # (Manual) Eosinophils # (Manual) Nucleated RBC % Basophils # (Manual) PT INR APTT Heparin Anti-Xa Level ABG pH POC ABG pO2 ABG pO2 ABG HCO3 ABG O2 Saturation ABG Base Excess POC ABG pCO2 ABG Hemoglobin ABG Oxyhemoglobin ABG Chloride ABG Glucose Oxyhemoglobin Sodium Potassium Chloride 95.3 L Carbon Dioxide 33 H BUN 36 H Creatinine Glucose 187 H POC Glucose 116 H Lactic Acid Calcium Phosphorus Magnesium AST ALT Lactate Dehydrogenase Total Bilirubin Direct Bilirubin CK-MB (CK-2) C-Reactive Protein NT-Pro-B Natriuret Pep Total Protein Albumin Arterial Blood Glucose Urine WBC (Auto) Urine Creatinine 57.4 H 02/01/20 02/01/20 02/01/20 05:24 10:40 12:29 WBC RBC Hgb Hct MCHC RDW MCV MCH Lymph % (Auto) Teller % (Auto) Teller # Eos # Lymph # (Auto) Teller # (Auto) Eos # (Auto) Seg Neutrophils % Seg Neuts % (Manual) Baso # (Auto) Lymphocytes % (Manual) Monocytes % (Manual) Eosinophils % (Manual) Basophils % (Manual) Seg Neutrophils # Seg Neutrophils # Man Lymphocytes # (Manual) Monocytes # (Manual) Eosinophils # (Manual) Nucleated RBC % Basophils # (Manual) PT INR APTT Heparin Anti-Xa Level ABG pH POC ABG pO2 ABG pO2 ABG HCO3 ABG O2 Saturation ABG Base Excess POC ABG pCO2 ABG Hemoglobin ABG Oxyhemoglobin ABG Chloride ABG Glucose Oxyhemoglobin Sodium Potassium Chloride Carbon Dioxide BUN Creatinine Glucose POC Glucose 142 H 165 H 151 H Lactic Acid Calcium Phosphorus Magnesium AST ALT Lactate Dehydrogenase Total Bilirubin Direct Bilirubin CK-MB (CK-2) C-Reactive Protein NT-Pro-B Natriuret Pep Total Protein Albumin Arterial Blood Glucose Urine WBC (Auto) Urine Creatinine 02/01/20 02/01/20 02/02/20 17:16 23:23 06:36 WBC RBC Hgb Hct MCHC RDW MCV MCH Lymph % (Auto) Teller % (Auto) Teller # Eos # Lymph # (Auto) Teller # (Auto) Eos # (Auto) Seg Neutrophils % Seg Neuts % (Manual) Baso # (Auto) Lymphocytes % (Manual) Monocytes % (Manual) Eosinophils % (Manual) Basophils % (Manual) Seg Neutrophils # Seg Neutrophils # Man Lymphocytes # (Manual) Monocytes # (Manual) Eosinophils # (Manual) Nucleated RBC % Basophils # (Manual) PT INR APTT Heparin Anti-Xa Level ABG pH POC ABG pO2 ABG pO2 ABG HCO3 ABG O2 Saturation ABG Base Excess POC ABG pCO2 ABG Hemoglobin ABG Oxyhemoglobin ABG Chloride ABG Glucose Oxyhemoglobin Sodium Potassium Chloride Carbon Dioxide BUN Creatinine Glucose POC Glucose 137 H 145 H 181 H Lactic Acid Calcium Phosphorus Magnesium AST ALT Lactate Dehydrogenase Total Bilirubin Direct Bilirubin CK-MB (CK-2) C-Reactive Protein NT-Pro-B Natriuret Pep Total Protein Albumin Arterial Blood Glucose Urine WBC (Auto) Urine Creatinine 02/02/20 02/02/20 02/02/20 10:01 12:05 17:54 WBC RBC Hgb Hct MCHC RDW MCV MCH Lymph % (Auto) Teller % (Auto) Teller # Eos # Lymph # (Auto) Teller # (Auto) Eos # (Auto) Seg Neutrophils % Seg Neuts % (Manual) Baso # (Auto) Lymphocytes % (Manual) Monocytes % (Manual) Eosinophils % (Manual) Basophils % (Manual) Seg Neutrophils # Seg Neutrophils # Man Lymphocytes # (Manual) Monocytes # (Manual) Eosinophils # (Manual) Nucleated RBC % Basophils # (Manual) PT INR APTT Heparin Anti-Xa Level ABG pH POC ABG pO2 ABG pO2 ABG HCO3 ABG O2 Saturation ABG Base Excess POC ABG pCO2 ABG Hemoglobin ABG Oxyhemoglobin ABG Chloride ABG Glucose Oxyhemoglobin Sodium Potassium Chloride 95.3 L Carbon Dioxide BUN 44 H Creatinine Glucose 234 H POC Glucose 184 H 127 H Lactic Acid Calcium Phosphorus Magnesium AST 363 H ALT 457 H Lactate Dehydrogenase Total Bilirubin Direct Bilirubin CK-MB (CK-2) C-Reactive Protein NT-Pro-B Natriuret Pep Total Protein Albumin 3.0 L Arterial Blood Glucose Urine WBC (Auto) Urine Creatinine 02/02/20 02/03/20 02/03/20 23:47 05:32 07:04 WBC 13.0 H RBC Hgb 9.5 L Hct 30.8 L MCHC 31 L RDW 19.6 H MCV 81 L MCH 25 L Lymph % (Auto) Teller % (Auto) 9.4 H Teller # Eos # Lymph # (Auto) Teller # (Auto) 1.2 H Eos # (Auto) Seg Neutrophils % 72.3 H Seg Neuts % (Manual) Baso # (Auto) Lymphocytes % (Manual) Monocytes % (Manual) Eosinophils % (Manual) Basophils % (Manual) Seg Neutrophils # 9.4 H Seg Neutrophils # Man Lymphocytes # (Manual) Monocytes # (Manual) Eosinophils # (Manual) Nucleated RBC % Basophils # (Manual) PT INR APTT Heparin Anti-Xa Level ABG pH POC ABG pO2 ABG pO2 ABG HCO3 ABG O2 Saturation ABG Base Excess POC ABG pCO2 ABG Hemoglobin ABG Oxyhemoglobin ABG Chloride ABG Glucose Oxyhemoglobin Sodium Potassium Chloride Carbon Dioxide BUN Creatinine Glucose POC Glucose 124 H 129 H Lactic Acid Calcium Phosphorus Magnesium AST ALT Lactate Dehydrogenase Total Bilirubin Direct Bilirubin CK-MB (CK-2) C-Reactive Protein NT-Pro-B Natriuret Pep Total Protein Albumin Arterial Blood Glucose Urine WBC (Auto) Urine Creatinine 02/03/20 02/03/20 02/03/20 07:04 11:32 12:49 WBC RBC Hgb Hct MCHC RDW MCV MCH Lymph % (Auto) Teller % (Auto) Teller # Eos # Lymph # (Auto) Teller # (Auto) Eos # (Auto) Seg Neutrophils % Seg Neuts % (Manual) Baso # (Auto) Lymphocytes % (Manual) Monocytes % (Manual) Eosinophils % (Manual) Basophils % (Manual) Seg Neutrophils # Seg Neutrophils # Man Lymphocytes # (Manual) Monocytes # (Manual) Eosinophils # (Manual) Nucleated RBC % Basophils # (Manual) PT INR APTT Heparin Anti-Xa Level ABG pH POC ABG pO2 ABG pO2 ABG HCO3 ABG O2 Saturation ABG Base Excess POC ABG pCO2 ABG Hemoglobin ABG Oxyhemoglobin ABG Chloride ABG Glucose Oxyhemoglobin Sodium Potassium Chloride 97.9 L Carbon Dioxide 33 H BUN 39 H Creatinine Glucose 119 H POC Glucose 138 H Lactic Acid Calcium Phosphorus Magnesium 2.60 H AST ALT Lactate Dehydrogenase Total Bilirubin Direct Bilirubin CK-MB (CK-2) C-Reactive Protein NT-Pro-B Natriuret Pep Total Protein Albumin Arterial Blood Glucose Urine WBC (Auto) Urine Creatinine 02/03/20 02/04/20 02/04/20 18:28 16:24 16:24 WBC RBC 3.38 L Hgb 8.6 L Hct 26.9 L MCHC RDW 19.5 H MCV 80 L MCH 26 L Lymph % (Auto) Teller % (Auto) Teller # Eos # Lymph # (Auto) Teller # (Auto) Eos # (Auto) Seg Neutrophils % Seg Neuts % (Manual) Baso # (Auto) Lymphocytes % (Manual) Monocytes % (Manual) Eosinophils % (Manual) Basophils % (Manual) Seg Neutrophils # Seg Neutrophils # Man Lymphocytes # (Manual) Monocytes # (Manual) Eosinophils # (Manual) Nucleated RBC % Basophils # (Manual) PT INR APTT Heparin Anti-Xa Level ABG pH POC ABG pO2 ABG pO2 ABG HCO3 ABG O2 Saturation ABG Base Excess POC ABG pCO2 ABG Hemoglobin ABG Oxyhemoglobin ABG Chloride ABG Glucose Oxyhemoglobin Sodium Potassium 3.4 L Chloride Carbon Dioxide 31 H BUN 37 H Creatinine Glucose 70 L POC Glucose 118 H Lactic Acid Calcium Phosphorus Magnesium AST 169 H ALT 394 H Lactate Dehydrogenase Total Bilirubin 1.50 H Direct Bilirubin CK-MB (CK-2) C-Reactive Protein NT-Pro-B Natriuret Pep Total Protein Albumin 2.9 L Arterial Blood Glucose Urine WBC (Auto) Urine Creatinine 02/05/20 02/05/20 02/05/20 00:41 06:37 17:14 WBC RBC Hgb Hct MCHC RDW MCV MCH Lymph % (Auto) Teller % (Auto) Teller # Eos # Lymph # (Auto) Teller # (Auto) Eos # (Auto) Seg Neutrophils % Seg Neuts % (Manual) Baso # (Auto) Lymphocytes % (Manual) Monocytes % (Manual) Eosinophils % (Manual) Basophils % (Manual) Seg Neutrophils # Seg Neutrophils # Man Lymphocytes # (Manual) Monocytes # (Manual) Eosinophils # (Manual) Nucleated RBC % Basophils # (Manual) PT INR APTT Heparin Anti-Xa Level ABG pH POC ABG pO2 ABG pO2 ABG HCO3 ABG O2 Saturation ABG Base Excess POC ABG pCO2 ABG Hemoglobin ABG Oxyhemoglobin ABG Chloride ABG Glucose Oxyhemoglobin Sodium Potassium 3.1 L Chloride Carbon Dioxide 35 H BUN 32 H Creatinine 0.7 L Glucose POC Glucose 69 L 127 H Lactic Acid Calcium Phosphorus Magnesium AST 134 H ALT 352 H Lactate Dehydrogenase Total Bilirubin 1.60 H Direct Bilirubin CK-MB (CK-2) C-Reactive Protein NT-Pro-B Natriuret Pep Total Protein Albumin 2.9 L Arterial Blood Glucose Urine WBC (Auto) Urine Creatinine 11/13/20 11/14/20 11/14/20 23:43 05:32 08:01 WBC RBC Hgb Hct MCHC RDW MCV MCH Lymph % (Auto) Teller % (Auto) Teller # Eos # Lymph # (Auto) Teller # (Auto) Eos # (Auto) Seg Neutrophils % Seg Neuts % (Manual) Baso # (Auto) Lymphocytes % (Manual) Monocytes % (Manual) Eosinophils % (Manual) Basophils % (Manual) Seg Neutrophils # Seg Neutrophils # Man Lymphocytes # (Manual) Monocytes # (Manual) Eosinophils # (Manual) Nucleated RBC % Basophils # (Manual) PT INR APTT Heparin Anti-Xa Level ABG pH POC ABG pO2 ABG pO2 ABG HCO3 ABG O2 Saturation ABG Base Excess POC ABG pCO2 ABG Hemoglobin ABG Oxyhemoglobin ABG Chloride ABG Glucose Oxyhemoglobin Sodium Potassium Chloride Carbon Dioxide BUN 40 H Creatinine Glucose 132 H POC Glucose 129 H 131 H Lactic Acid Calcium Phosphorus Magnesium AST ALT Lactate Dehydrogenase Total Bilirubin Direct Bilirubin CK-MB (CK-2) C-Reactive Protein NT-Pro-B Natriuret Pep Total Protein Albumin Arterial Blood Glucose Urine WBC (Auto) Urine Creatinine 02/06/20 02/06/20 02/06/20 11:51 16:28 17:32 WBC RBC Hgb Hct MCHC RDW MCV MCH Lymph % (Auto) Teller % (Auto) Teller # Eos # Lymph # (Auto) Teller # (Auto) Eos # (Auto) Seg Neutrophils % Seg Neuts % (Manual) Baso # (Auto) Lymphocytes % (Manual) Monocytes % (Manual) Eosinophils % (Manual) Basophils % (Manual) Seg Neutrophils # Seg Neutrophils # Man Lymphocytes # (Manual) Monocytes # (Manual) Eosinophils # (Manual) Nucleated RBC % Basophils # (Manual) PT INR APTT Heparin Anti-Xa Level ABG pH POC ABG pO2 ABG pO2 ABG HCO3 ABG O2 Saturation ABG Base Excess POC ABG pCO2 ABG Hemoglobin ABG Oxyhemoglobin ABG Chloride ABG Glucose Oxyhemoglobin Sodium Potassium Chloride Carbon Dioxide BUN Creatinine Glucose POC Glucose 167 H 129 H Lactic Acid Calcium Phosphorus Magnesium AST 824 H ALT 948 H Lactate Dehydrogenase Total Bilirubin 1.70 H Direct Bilirubin 1.2 H CK-MB (CK-2) C-Reactive Protein NT-Pro-B Natriuret Pep Total Protein Albumin 2.9 L Arterial Blood Glucose Urine WBC (Auto) Urine Creatinine 02/07/20 02/07/20 02/07/20 00:11 04:57 04:57 WBC RBC Hgb 9.2 L Hct 29.7 L MCHC 31 L RDW 20.2 H MCV 80 L MCH 25 L Lymph % (Auto) Teller % (Auto) Teller # Eos # Lymph # (Auto) Teller # (Auto) Eos # (Auto) Seg Neutrophils % Seg Neuts % (Manual) Baso # (Auto) Lymphocytes % (Manual) Monocytes % (Manual) Eosinophils % (Manual) Basophils % (Manual) Seg Neutrophils # Seg Neutrophils # Man Lymphocytes # (Manual) Monocytes # (Manual) Eosinophils # (Manual) Nucleated RBC % Basophils # (Manual) PT INR APTT Heparin Anti-Xa Level ABG pH POC ABG pO2 ABG pO2 ABG HCO3 ABG O2 Saturation ABG Base Excess POC ABG pCO2 ABG Hemoglobin ABG Oxyhemoglobin ABG Chloride ABG Glucose Oxyhemoglobin Sodium Potassium 3.4 L D Chloride Carbon Dioxide 32 H BUN 39 H Creatinine Glucose 106 H POC Glucose 121 H Lactic Acid Calcium Phosphorus Magnesium AST ALT Lactate Dehydrogenase Total Bilirubin Direct Bilirubin CK-MB (CK-2) C-Reactive Protein NT-Pro-B Natriuret Pep Total Protein Albumin Arterial Blood Glucose Urine WBC (Auto) Urine Creatinine 02/07/20 02/07/20 02/07/20 15:03 15:03 17:11 WBC RBC Hgb Hct MCHC RDW MCV MCH Lymph % (Auto) Teller % (Auto) Teller # Eos # Lymph # (Auto) Teller # (Auto) Eos # (Auto) Seg Neutrophils % Seg Neuts % (Manual) Baso # (Auto) Lymphocytes % (Manual) Monocytes % (Manual) Eosinophils % (Manual) Basophils % (Manual) Seg Neutrophils # Seg Neutrophils # Man Lymphocytes # (Manual) Monocytes # (Manual) Eosinophils # (Manual) Nucleated RBC % Basophils # (Manual) PT 27.0 H INR 2.46 H APTT Heparin Anti-Xa Level ABG pH POC ABG pO2 ABG pO2 ABG HCO3 ABG O2 Saturation ABG Base Excess POC ABG pCO2 ABG Hemoglobin ABG Oxyhemoglobin ABG Chloride ABG Glucose Oxyhemoglobin Sodium Potassium Chloride Carbon Dioxide BUN Creatinine Glucose POC Glucose 109 H Lactic Acid Calcium Phosphorus Magnesium AST 424 H ALT 796 H Lactate Dehydrogenase Total Bilirubin 1.60 H Direct Bilirubin 1.2 H CK-MB (CK-2) C-Reactive Protein NT-Pro-B Natriuret Pep Total Protein Albumin 2.9 L Arterial Blood Glucose Urine WBC (Auto) Urine Creatinine 02/08/20 02/08/20 02/08/20 12:14 17:44 19:00 WBC RBC Hgb Hct MCHC RDW MCV MCH Lymph % (Auto) Teller % (Auto) Teller # Eos # Lymph # (Auto) Teller # (Auto) Eos # (Auto) Seg Neutrophils % Seg Neuts % (Manual) Baso # (Auto) Lymphocytes % (Manual) Monocytes % (Manual) Eosinophils % (Manual) Basophils % (Manual) Seg Neutrophils # Seg Neutrophils # Man Lymphocytes # (Manual) Monocytes # (Manual) Eosinophils # (Manual) Nucleated RBC % Basophils # (Manual) PT INR APTT Heparin Anti-Xa Level ABG pH POC ABG pO2 ABG pO2 ABG HCO3 ABG O2 Saturation ABG Base Excess POC ABG pCO2 ABG Hemoglobin ABG Oxyhemoglobin ABG Chloride ABG Glucose Oxyhemoglobin Sodium Potassium Chloride Carbon Dioxide BUN Creatinine Glucose POC Glucose 111 H 107 H Lactic Acid Calcium Phosphorus Magnesium AST 309 H ALT 650 H Lactate Dehydrogenase Total Bilirubin 1.30 H Direct Bilirubin 0.9 H CK-MB (CK-2) C-Reactive Protein NT-Pro-B Natriuret Pep Total Protein 6.2 L Albumin 2.7 L Arterial Blood Glucose Urine WBC (Auto) Urine Creatinine 02/09/20 02/09/20 02/09/20 05:41 12:28 18:07 WBC RBC Hgb Hct MCHC RDW MCV MCH Lymph % (Auto) Teller % (Auto) Teller # Eos # Lymph # (Auto) Teller # (Auto) Eos # (Auto) Seg Neutrophils % Seg Neuts % (Manual) Baso # (Auto) Lymphocytes % (Manual) Monocytes % (Manual) Eosinophils % (Manual) Basophils % (Manual) Seg Neutrophils # Seg Neutrophils # Man Lymphocytes # (Manual) Monocytes # (Manual) Eosinophils # (Manual) Nucleated RBC % Basophils # (Manual) PT INR APTT Heparin Anti-Xa Level ABG pH POC ABG pO2 ABG pO2 ABG HCO3 ABG O2 Saturation ABG Base Excess POC ABG pCO2 ABG Hemoglobin ABG Oxyhemoglobin ABG Chloride ABG Glucose Oxyhemoglobin Sodium Potassium Chloride Carbon Dioxide BUN Creatinine Glucose POC Glucose 113 H 140 H 143 H Lactic Acid Calcium Phosphorus Magnesium AST ALT Lactate Dehydrogenase Total Bilirubin Direct Bilirubin CK-MB (CK-2) C-Reactive Protein NT-Pro-B Natriuret Pep Total Protein Albumin Arterial Blood Glucose Urine WBC (Auto) Urine Creatinine 02/09/20 02/09/20 02/10/20 21:40 23:45 06:00 WBC RBC Hgb Hct MCHC RDW MCV MCH Lymph % (Auto) Teller % (Auto) Teller # Eos # Lymph # (Auto) Teller # (Auto) Eos # (Auto) Seg Neutrophils % Seg Neuts % (Manual) Baso # (Auto) Lymphocytes % (Manual) Monocytes % (Manual) Eosinophils % (Manual) Basophils % (Manual) Seg Neutrophils # Seg Neutrophils # Man Lymphocytes # (Manual) Monocytes # (Manual) Eosinophils # (Manual) Nucleated RBC % Basophils # (Manual) PT INR APTT Heparin Anti-Xa Level ABG pH POC ABG pO2 ABG pO2 59.8 L ABG HCO3 33.3 H ABG O2 Saturation 88.9 L ABG Base Excess 7.4 H POC ABG pCO2 ABG Hemoglobin 10.4 L ABG Oxyhemoglobin ABG Chloride ABG Glucose Oxyhemoglobin 86.3 L Sodium Potassium Chloride Carbon Dioxide BUN Creatinine Glucose POC Glucose 127 H 114 H Lactic Acid Calcium Phosphorus Magnesium AST ALT Lactate Dehydrogenase Total Bilirubin Direct Bilirubin CK-MB (CK-2) C-Reactive Protein NT-Pro-B Natriuret Pep Total Protein Albumin Arterial Blood Glucose Urine WBC (Auto) Urine Creatinine 02/10/20 02/10/20 02/10/20 07:40 07:40 13:38 WBC 11.5 H RBC Hgb 10.6 L Hct 34.7 L MCHC 31 L RDW 19.8 H MCV 79 L MCH 24 L Lymph % (Auto) Teller % (Auto) 9.2 H Teller # Eos # Lymph # (Auto) Teller # (Auto) 1.1 H Eos # (Auto) Seg Neutrophils % Seg Neuts % (Manual) Baso # (Auto) Lymphocytes % (Manual) Monocytes % (Manual) Eosinophils % (Manual) Basophils % (Manual) Seg Neutrophils # Seg Neutrophils # Man Lymphocytes # (Manual) Monocytes # (Manual) Eosinophils # (Manual) Nucleated RBC % Basophils # (Manual) PT INR APTT Heparin Anti-Xa Level ABG pH POC ABG pO2 ABG pO2 ABG HCO3 ABG O2 Saturation ABG Base Excess POC ABG pCO2 ABG Hemoglobin ABG Oxyhemoglobin ABG Chloride ABG Glucose Oxyhemoglobin Sodium 151 H Potassium Chloride 107.2 H Carbon Dioxide 36 H BUN 25 H Creatinine 0.7 L Glucose 114 H POC Glucose 116 H Lactic Acid Calcium Phosphorus Magnesium 2.40 H AST ALT Lactate Dehydrogenase Total Bilirubin Direct Bilirubin CK-MB (CK-2) C-Reactive Protein NT-Pro-B Natriuret Pep Total Protein Albumin Arterial Blood Glucose Urine WBC (Auto) Urine Creatinine 02/10/20 02/11/20 02/11/20 17:44 05:47 12:21 WBC RBC Hgb Hct MCHC RDW MCV MCH Lymph % (Auto) Teller % (Auto) Teller # Eos # Lymph # (Auto) Teller # (Auto) Eos # (Auto) Seg Neutrophils % Seg Neuts % (Manual) Baso # (Auto) Lymphocytes % (Manual) Monocytes % (Manual) Eosinophils % (Manual) Basophils % (Manual) Seg Neutrophils # Seg Neutrophils # Man Lymphocytes # (Manual) Monocytes # (Manual) Eosinophils # (Manual) Nucleated RBC % Basophils # (Manual) PT INR APTT Heparin Anti-Xa Level ABG pH POC ABG pO2 ABG pO2 ABG HCO3 ABG O2 Saturation ABG Base Excess POC ABG pCO2 ABG Hemoglobin ABG Oxyhemoglobin ABG Chloride ABG Glucose Oxyhemoglobin Sodium Potassium Chloride Carbon Dioxide BUN Creatinine Glucose POC Glucose 139 H 173 H 143 H Lactic Acid Calcium Phosphorus Magnesium AST ALT Lactate Dehydrogenase Total Bilirubin Direct Bilirubin CK-MB (CK-2) C-Reactive Protein NT-Pro-B Natriuret Pep Total Protein Albumin Arterial Blood Glucose Urine WBC (Auto) Urine Creatinine 02/11/20 02/11/20 02/12/20 13:43 14:11 00:15 WBC RBC Hgb Hct MCHC RDW MCV MCH Lymph % (Auto) Teller % (Auto) Teller # Eos # Lymph # (Auto) Teller # (Auto) Eos # (Auto) Seg Neutrophils % Seg Neuts % (Manual) Baso # (Auto) Lymphocytes % (Manual) Monocytes % (Manual) Eosinophils % (Manual) Basophils % (Manual) Seg Neutrophils # Seg Neutrophils # Man Lymphocytes # (Manual) Monocytes # (Manual) Eosinophils # (Manual) Nucleated RBC % Basophils # (Manual) PT INR APTT Heparin Anti-Xa Level ABG pH 7.502 H POC ABG pO2 77.7 L ABG pO2 ABG HCO3 ABG O2 Saturation ABG Base Excess POC ABG pCO2 ABG Hemoglobin 11.1 L ABG Oxyhemoglobin ABG Chloride 108.0 H ABG Glucose 151 H Oxyhemoglobin Sodium Potassium Chloride Carbon Dioxide BUN Creatinine Glucose POC Glucose 130 H 125 H Lactic Acid Calcium Phosphorus Magnesium AST ALT Lactate Dehydrogenase Total Bilirubin Direct Bilirubin CK-MB (CK-2) C-Reactive Protein NT-Pro-B Natriuret Pep Total Protein Albumin Arterial Blood Glucose 151 H Urine WBC (Auto) Urine Creatinine 02/12/20 02/12/20 02/12/20 04:56 04:56 17:42 WBC RBC Hgb 9.9 L Hct 31.8 L MCHC 31 L RDW 19.4 H MCV 79 L MCH 25 L Lymph % (Auto) Teller % (Auto) 10.3 H Teller # Eos # Lymph # (Auto) Teller # (Auto) 1.0 H Eos # (Auto) Seg Neutrophils % Seg Neuts % (Manual) Baso # (Auto) Lymphocytes % (Manual) Monocytes % (Manual) Eosinophils % (Manual) Basophils % (Manual) Seg Neutrophils # Seg Neutrophils # Man Lymphocytes # (Manual) Monocytes # (Manual) Eosinophils # (Manual) Nucleated RBC % Basophils # (Manual) PT INR APTT Heparin Anti-Xa Level ABG pH POC ABG pO2 ABG pO2 ABG HCO3 ABG O2 Saturation ABG Base Excess POC ABG pCO2 ABG Hemoglobin ABG Oxyhemoglobin ABG Chloride ABG Glucose Oxyhemoglobin Sodium 149 H Potassium Chloride 108.6 H Carbon Dioxide BUN 28 H Creatinine 0.7 L Glucose 108 H POC Glucose 113 H Lactic Acid Calcium Phosphorus Magnesium AST ALT Lactate Dehydrogenase Total Bilirubin Direct Bilirubin CK-MB (CK-2) C-Reactive Protein NT-Pro-B Natriuret Pep Total Protein Albumin Arterial Blood Glucose Urine WBC (Auto) Urine Creatinine 02/13/20 02/13/20 02/13/20 00:39 05:36 12:25 WBC RBC Hgb Hct MCHC RDW MCV MCH Lymph % (Auto) Teller % (Auto) Teller # Eos # Lymph # (Auto) Teller # (Auto) Eos # (Auto) Seg Neutrophils % Seg Neuts % (Manual) Baso # (Auto) Lymphocytes % (Manual) Monocytes % (Manual) Eosinophils % (Manual) Basophils % (Manual) Seg Neutrophils # Seg Neutrophils # Man Lymphocytes # (Manual) Monocytes # (Manual) Eosinophils # (Manual) Nucleated RBC % Basophils # (Manual) PT INR APTT Heparin Anti-Xa Level ABG pH POC ABG pO2 ABG pO2 ABG HCO3 ABG O2 Saturation ABG Base Excess POC ABG pCO2 ABG Hemoglobin ABG Oxyhemoglobin ABG Chloride ABG Glucose Oxyhemoglobin Sodium Potassium Chloride Carbon Dioxide BUN Creatinine Glucose POC Glucose 129 H 126 H 129 H Lactic Acid Calcium Phosphorus Magnesium AST ALT Lactate Dehydrogenase Total Bilirubin Direct Bilirubin CK-MB (CK-2) C-Reactive Protein NT-Pro-B Natriuret Pep Total Protein Albumin Arterial Blood Glucose Urine WBC (Auto) Urine Creatinine 02/13/20 02/14/20 02/14/20 17:59 00:15 05:41 WBC RBC Hgb Hct MCHC RDW MCV MCH Lymph % (Auto) Teller % (Auto) Teller # Eos # Lymph # (Auto) Teller # (Auto) Eos # (Auto) Seg Neutrophils % Seg Neuts % (Manual) Baso # (Auto) Lymphocytes % (Manual) Monocytes % (Manual) Eosinophils % (Manual) Basophils % (Manual) Seg Neutrophils # Seg Neutrophils # Man Lymphocytes # (Manual) Monocytes # (Manual) Eosinophils # (Manual) Nucleated RBC % Basophils # (Manual) PT INR APTT Heparin Anti-Xa Level ABG pH POC ABG pO2 ABG pO2 ABG HCO3 ABG O2 Saturation ABG Base Excess POC ABG pCO2 ABG Hemoglobin ABG Oxyhemoglobin ABG Chloride ABG Glucose Oxyhemoglobin Sodium Potassium Chloride Carbon Dioxide BUN Creatinine Glucose POC Glucose 153 H 130 H 130 H Lactic Acid Calcium Phosphorus Magnesium AST ALT Lactate Dehydrogenase Total Bilirubin Direct Bilirubin CK-MB (CK-2) C-Reactive Protein NT-Pro-B Natriuret Pep Total Protein Albumin Arterial Blood Glucose Urine WBC (Auto) Urine Creatinine 02/14/20 02/15/20 02/15/20 11:32 00:12 05:27 WBC RBC Hgb Hct MCHC RDW MCV MCH Lymph % (Auto) Teller % (Auto) Teller # Eos # Lymph # (Auto) Teller # (Auto) Eos # (Auto) Seg Neutrophils % Seg Neuts % (Manual) Baso # (Auto) Lymphocytes % (Manual) Monocytes % (Manual) Eosinophils % (Manual) Basophils % (Manual) Seg Neutrophils # Seg Neutrophils # Man Lymphocytes # (Manual) Monocytes # (Manual) Eosinophils # (Manual) Nucleated RBC % Basophils # (Manual) PT INR APTT Heparin Anti-Xa Level ABG pH POC ABG pO2 ABG pO2 ABG HCO3 ABG O2 Saturation ABG Base Excess POC ABG pCO2 ABG Hemoglobin ABG Oxyhemoglobin ABG Chloride ABG Glucose Oxyhemoglobin Sodium Potassium Chloride Carbon Dioxide BUN Creatinine Glucose POC Glucose 157 H 124 H 111 H Lactic Acid Calcium Phosphorus Magnesium AST ALT Lactate Dehydrogenase Total Bilirubin Direct Bilirubin CK-MB (CK-2) C-Reactive Protein NT-Pro-B Natriuret Pep Total Protein Albumin Arterial Blood Glucose Urine WBC (Auto) Urine Creatinine 02/15/20 02/15/20 02/15/20 06:59 06:59 11:14 WBC RBC Hgb 10.4 L Hct 33.7 L MCHC 31 L RDW 19.4 H MCV 80 L MCH 24 L Lymph % (Auto) Teller % (Auto) Teller # Eos # Lymph # (Auto) Teller # (Auto) Eos # (Auto) Seg Neutrophils % Seg Neuts % (Manual) Baso # (Auto) Lymphocytes % (Manual) Monocytes % (Manual) Eosinophils % (Manual) Basophils % (Manual) 2.0 H Seg Neutrophils # Seg Neutrophils # Man Lymphocytes # (Manual) Monocytes # (Manual) Eosinophils # (Manual) Nucleated RBC % 1.0 H Basophils # (Manual) 0.2 H PT INR APTT Heparin Anti-Xa Level ABG pH POC ABG pO2 ABG pO2 ABG HCO3 ABG O2 Saturation ABG Base Excess POC ABG pCO2 ABG Hemoglobin ABG Oxyhemoglobin ABG Chloride ABG Glucose Oxyhemoglobin Sodium 149 H Potassium Chloride 108.4 H Carbon Dioxide 31 H BUN 40 H Creatinine 0.7 L Glucose 150 H POC Glucose 128 H Lactic Acid Calcium Phosphorus Magnesium AST ALT Lactate Dehydrogenase Total Bilirubin Direct Bilirubin CK-MB (CK-2) C-Reactive Protein NT-Pro-B Natriuret Pep Total Protein Albumin Arterial Blood Glucose Urine WBC (Auto) Urine Creatinine 02/15/20 02/15/20 02/16/20 17:46 23:50 05:03 WBC RBC Hgb Hct MCHC RDW MCV MCH Lymph % (Auto) Teller % (Auto) Teller # Eos # Lymph # (Auto) Teller # (Auto) Eos # (Auto) Seg Neutrophils % Seg Neuts % (Manual) Baso # (Auto) Lymphocytes % (Manual) Monocytes % (Manual) Eosinophils % (Manual) Basophils % (Manual) Seg Neutrophils # Seg Neutrophils # Man Lymphocytes # (Manual) Monocytes # (Manual) Eosinophils # (Manual) Nucleated RBC % Basophils # (Manual) PT INR APTT Heparin Anti-Xa Level ABG pH POC ABG pO2 ABG pO2 ABG HCO3 ABG O2 Saturation ABG Base Excess POC ABG pCO2 ABG Hemoglobin ABG Oxyhemoglobin ABG Chloride ABG Glucose Oxyhemoglobin Sodium Potassium Chloride Carbon Dioxide BUN Creatinine Glucose POC Glucose 154 H 135 H 148 H Lactic Acid Calcium Phosphorus Magnesium AST ALT Lactate Dehydrogenase Total Bilirubin Direct Bilirubin CK-MB (CK-2) C-Reactive Protein NT-Pro-B Natriuret Pep Total Protein Albumin Arterial Blood Glucose Urine WBC (Auto) Urine Creatinine 02/16/20 02/16/20 02/16/20 07:53 11:28 17:52 WBC RBC Hgb Hct MCHC RDW MCV MCH Lymph % (Auto) Teller % (Auto) Teller # Eos # Lymph # (Auto) Teller # (Auto) Eos # (Auto) Seg Neutrophils % Seg Neuts % (Manual) Baso # (Auto) Lymphocytes % (Manual) Monocytes % (Manual) Eosinophils % (Manual) Basophils % (Manual) Seg Neutrophils # Seg Neutrophils # Man Lymphocytes # (Manual) Monocytes # (Manual) Eosinophils # (Manual) Nucleated RBC % Basophils # (Manual) PT INR APTT Heparin Anti-Xa Level ABG pH POC ABG pO2 ABG pO2 ABG HCO3 ABG O2 Saturation ABG Base Excess POC ABG pCO2 ABG Hemoglobin ABG Oxyhemoglobin ABG Chloride ABG Glucose Oxyhemoglobin Sodium Potassium Chloride 107.9 H Carbon Dioxide BUN 38 H Creatinine 0.6 L Glucose 151 H POC Glucose 123 H 152 H Lactic Acid Calcium Phosphorus Magnesium AST ALT Lactate Dehydrogenase Total Bilirubin Direct Bilirubin CK-MB (CK-2) C-Reactive Protein NT-Pro-B Natriuret Pep Total Protein Albumin Arterial Blood Glucose Urine WBC (Auto) Urine Creatinine 02/16/20 02/17/20 02/17/20 23:49 06:24 11:36 WBC RBC Hgb Hct MCHC RDW MCV MCH Lymph % (Auto) Teller % (Auto) Teller # Eos # Lymph # (Auto) Teller # (Auto) Eos # (Auto) Seg Neutrophils % Seg Neuts % (Manual) Baso # (Auto) Lymphocytes % (Manual) Monocytes % (Manual) Eosinophils % (Manual) Basophils % (Manual) Seg Neutrophils # Seg Neutrophils # Man Lymphocytes # (Manual) Monocytes # (Manual) Eosinophils # (Manual) Nucleated RBC % Basophils # (Manual) PT INR APTT Heparin Anti-Xa Level ABG pH POC ABG pO2 ABG pO2 ABG HCO3 ABG O2 Saturation ABG Base Excess POC ABG pCO2 ABG Hemoglobin ABG Oxyhemoglobin ABG Chloride ABG Glucose Oxyhemoglobin Sodium Potassium Chloride Carbon Dioxide BUN Creatinine Glucose POC Glucose 156 H 193 H 162 H Lactic Acid Calcium Phosphorus Magnesium AST ALT Lactate Dehydrogenase Total Bilirubin Direct Bilirubin CK-MB (CK-2) C-Reactive Protein NT-Pro-B Natriuret Pep Total Protein Albumin Arterial Blood Glucose Urine WBC (Auto) Urine Creatinine 02/17/20 02/17/20 02/18/20 17:55 23:28 05:11 WBC RBC Hgb Hct MCHC RDW MCV MCH Lymph % (Auto) Teller % (Auto) Teller # Eos # Lymph # (Auto) Teller # (Auto) Eos # (Auto) Seg Neutrophils % Seg Neuts % (Manual) Baso # (Auto) Lymphocytes % (Manual) Monocytes % (Manual) Eosinophils % (Manual) Basophils % (Manual) Seg Neutrophils # Seg Neutrophils # Man Lymphocytes # (Manual) Monocytes # (Manual) Eosinophils # (Manual) Nucleated RBC % Basophils # (Manual) PT INR APTT Heparin Anti-Xa Level ABG pH POC ABG pO2 ABG pO2 ABG HCO3 ABG O2 Saturation ABG Base Excess POC ABG pCO2 ABG Hemoglobin ABG Oxyhemoglobin ABG Chloride ABG Glucose Oxyhemoglobin Sodium Potassium Chloride Carbon Dioxide BUN Creatinine Glucose POC Glucose 165 H 146 H 122 H Lactic Acid Calcium Phosphorus Magnesium AST ALT Lactate Dehydrogenase Total Bilirubin Direct Bilirubin CK-MB (CK-2) C-Reactive Protein NT-Pro-B Natriuret Pep Total Protein Albumin Arterial Blood Glucose Urine WBC (Auto) Urine Creatinine 02/18/20 02/18/20 02/19/20 12:24 17:29 00:01 WBC RBC Hgb Hct MCHC RDW MCV MCH Lymph % (Auto) Teller % (Auto) Teller # Eos # Lymph # (Auto) Teller # (Auto) Eos # (Auto) Seg Neutrophils % Seg Neuts % (Manual) Baso # (Auto) Lymphocytes % (Manual) Monocytes % (Manual) Eosinophils % (Manual) Basophils % (Manual) Seg Neutrophils # Seg Neutrophils # Man Lymphocytes # (Manual) Monocytes # (Manual) Eosinophils # (Manual) Nucleated RBC % Basophils # (Manual) PT INR APTT Heparin Anti-Xa Level ABG pH POC ABG pO2 ABG pO2 ABG HCO3 ABG O2 Saturation ABG Base Excess POC ABG pCO2 ABG Hemoglobin ABG Oxyhemoglobin ABG Chloride ABG Glucose Oxyhemoglobin Sodium Potassium Chloride Carbon Dioxide BUN Creatinine Glucose POC Glucose 162 H 136 H 145 H Lactic Acid Calcium Phosphorus Magnesium AST ALT Lactate Dehydrogenase Total Bilirubin Direct Bilirubin CK-MB (CK-2) C-Reactive Protein NT-Pro-B Natriuret Pep Total Protein Albumin Arterial Blood Glucose Urine WBC (Auto) Urine Creatinine 02/19/20 02/19/20 02/19/20 05:53 11:44 17:32 WBC RBC Hgb Hct MCHC RDW MCV MCH Lymph % (Auto) Teller % (Auto) Teller # Eos # Lymph # (Auto) Teller # (Auto) Eos # (Auto) Seg Neutrophils % Seg Neuts % (Manual) Baso # (Auto) Lymphocytes % (Manual) Monocytes % (Manual) Eosinophils % (Manual) Basophils % (Manual) Seg Neutrophils # Seg Neutrophils # Man Lymphocytes # (Manual) Monocytes # (Manual) Eosinophils # (Manual) Nucleated RBC % Basophils # (Manual) PT INR APTT Heparin Anti-Xa Level ABG pH POC ABG pO2 ABG pO2 ABG HCO3 ABG O2 Saturation ABG Base Excess POC ABG pCO2 ABG Hemoglobin ABG Oxyhemoglobin ABG Chloride ABG Glucose Oxyhemoglobin Sodium Potassium Chloride Carbon Dioxide BUN Creatinine Glucose POC Glucose 116 H 120 H 154 H Lactic Acid Calcium Phosphorus Magnesium AST ALT Lactate Dehydrogenase Total Bilirubin Direct Bilirubin CK-MB (CK-2) C-Reactive Protein NT-Pro-B Natriuret Pep Total Protein Albumin Arterial Blood Glucose Urine WBC (Auto) Urine Creatinine 02/19/20 02/20/20 02/20/20 23:43 00:24 00:24 WBC RBC Hgb 9.4 L Hct 30.0 L MCHC 31 L RDW 20.4 H MCV 79 L MCH 25 L Lymph % (Auto) Teller % (Auto) 8.5 H Teller # Eos # Lymph # (Auto) Teller # (Auto) Eos # (Auto) Seg Neutrophils % Seg Neuts % (Manual) Baso # (Auto) Lymphocytes % (Manual) Monocytes % (Manual) Eosinophils % (Manual) Basophils % (Manual) Seg Neutrophils # Seg Neutrophils # Man Lymphocytes # (Manual) Monocytes # (Manual) Eosinophils # (Manual) Nucleated RBC % Basophils # (Manual) PT INR APTT Heparin Anti-Xa Level ABG pH POC ABG pO2 ABG pO2 ABG HCO3 ABG O2 Saturation ABG Base Excess POC ABG pCO2 ABG Hemoglobin ABG Oxyhemoglobin ABG Chloride ABG Glucose Oxyhemoglobin Sodium 147 H Potassium 3.4 L Chloride Carbon Dioxide 31 H BUN 34 H Creatinine 0.5 L Glucose 135 H POC Glucose 122 H Lactic Acid Calcium Phosphorus Magnesium AST ALT Lactate Dehydrogenase Total Bilirubin Direct Bilirubin CK-MB (CK-2) C-Reactive Protein NT-Pro-B Natriuret Pep Total Protein Albumin Arterial Blood Glucose Urine WBC (Auto) Urine Creatinine 02/20/20 02/20/20 02/20/20 06:07 06:45 12:03 WBC RBC Hgb Hct MCHC RDW MCV MCH Lymph % (Auto) Teller % (Auto) Teller # Eos # Lymph # (Auto) Teller # (Auto) Eos # (Auto) Seg Neutrophils % Seg Neuts % (Manual) Baso # (Auto) Lymphocytes % (Manual) Monocytes % (Manual) Eosinophils % (Manual) Basophils % (Manual) Seg Neutrophils # Seg Neutrophils # Man Lymphocytes # (Manual) Monocytes # (Manual) Eosinophils # (Manual) Nucleated RBC % Basophils # (Manual) PT INR APTT Heparin Anti-Xa Level ABG pH 7.461 H POC ABG pO2 ABG pO2 ABG HCO3 33.3 H ABG O2 Saturation ABG Base Excess 8.4 H POC ABG pCO2 ABG Hemoglobin 10.0 L ABG Oxyhemoglobin ABG Chloride ABG Glucose Oxyhemoglobin 94.1 L Sodium Potassium Chloride Carbon Dioxide BUN Creatinine Glucose POC Glucose 109 H 128 H Lactic Acid Calcium Phosphorus Magnesium AST ALT Lactate Dehydrogenase Total Bilirubin Direct Bilirubin CK-MB (CK-2) C-Reactive Protein NT-Pro-B Natriuret Pep Total Protein Albumin Arterial Blood Glucose Urine WBC (Auto) Urine Creatinine 02/20/20 02/20/20 02/21/20 18:02 23:55 05:42 WBC RBC Hgb Hct MCHC RDW MCV MCH Lymph % (Auto) Teller % (Auto) Teller # Eos # Lymph # (Auto) Teller # (Auto) Eos # (Auto) Seg Neutrophils % Seg Neuts % (Manual) Baso # (Auto) Lymphocytes % (Manual) Monocytes % (Manual) Eosinophils % (Manual) Basophils % (Manual) Seg Neutrophils # Seg Neutrophils # Man Lymphocytes # (Manual) Monocytes # (Manual) Eosinophils # (Manual) Nucleated RBC % Basophils # (Manual) PT INR APTT Heparin Anti-Xa Level ABG pH POC ABG pO2 ABG pO2 ABG HCO3 ABG O2 Saturation ABG Base Excess POC ABG pCO2 ABG Hemoglobin ABG Oxyhemoglobin ABG Chloride ABG Glucose Oxyhemoglobin Sodium Potassium Chloride Carbon Dioxide BUN Creatinine Glucose POC Glucose 118 H 125 H 127 H Lactic Acid Calcium Phosphorus Magnesium AST ALT Lactate Dehydrogenase Total Bilirubin Direct Bilirubin CK-MB (CK-2) C-Reactive Protein NT-Pro-B Natriuret Pep Total Protein Albumin Arterial Blood Glucose Urine WBC (Auto) Urine Creatinine 02/21/20 02/21/20 02/21/20 12:10 17:35 23:40 WBC RBC Hgb Hct MCHC RDW MCV MCH Lymph % (Auto) Teller % (Auto) Teller # Eos # Lymph # (Auto) Teller # (Auto) Eos # (Auto) Seg Neutrophils % Seg Neuts % (Manual) Baso # (Auto) Lymphocytes % (Manual) Monocytes % (Manual) Eosinophils % (Manual) Basophils % (Manual) Seg Neutrophils # Seg Neutrophils # Man Lymphocytes # (Manual) Monocytes # (Manual) Eosinophils # (Manual) Nucleated RBC % Basophils # (Manual) PT INR APTT Heparin Anti-Xa Level ABG pH POC ABG pO2 ABG pO2 ABG HCO3 ABG O2 Saturation ABG Base Excess POC ABG pCO2 ABG Hemoglobin ABG Oxyhemoglobin ABG Chloride ABG Glucose Oxyhemoglobin Sodium Potassium Chloride Carbon Dioxide BUN Creatinine Glucose POC Glucose 128 H 113 H 125 H Lactic Acid Calcium Phosphorus Magnesium AST ALT Lactate Dehydrogenase Total Bilirubin Direct Bilirubin CK-MB (CK-2) C-Reactive Protein NT-Pro-B Natriuret Pep Total Protein Albumin Arterial Blood Glucose Urine WBC (Auto) Urine Creatinine 02/22/20 02/22/20 02/22/20 05:57 08:06 08:06 WBC RBC Hgb 10.8 L Hct 35.2 L MCHC 31 L RDW 21.8 H MCV 80 L MCH 25 L Lymph % (Auto) Teller % (Auto) Teller # Eos # Lymph # (Auto) Teller # (Auto) Eos # (Auto) Seg Neutrophils % 71.5 H Seg Neuts % (Manual) Baso # (Auto) Lymphocytes % (Manual) Monocytes % (Manual) Eosinophils % (Manual) Basophils % (Manual) Seg Neutrophils # Seg Neutrophils # Man Lymphocytes # (Manual) Monocytes # (Manual) Eosinophils # (Manual) Nucleated RBC % Basophils # (Manual) PT INR APTT Heparin Anti-Xa Level ABG pH POC ABG pO2 ABG pO2 ABG HCO3 ABG O2 Saturation ABG Base Excess POC ABG pCO2 ABG Hemoglobin ABG Oxyhemoglobin ABG Chloride ABG Glucose Oxyhemoglobin Sodium 146 H Potassium Chloride Carbon Dioxide 34 H BUN 21 H Creatinine 0.4 L Glucose 149 H POC Glucose 138 H Lactic Acid Calcium Phosphorus Magnesium AST ALT Lactate Dehydrogenase Total Bilirubin Direct Bilirubin CK-MB (CK-2) C-Reactive Protein NT-Pro-B Natriuret Pep Total Protein Albumin Arterial Blood Glucose Urine WBC (Auto) Urine Creatinine 02/22/20 02/22/20 02/22/20 11:47 17:11 23:25 WBC RBC Hgb Hct MCHC RDW MCV MCH Lymph % (Auto) Teller % (Auto) Teller # Eos # Lymph # (Auto) Teller # (Auto) Eos # (Auto) Seg Neutrophils % Seg Neuts % (Manual) Baso # (Auto) Lymphocytes % (Manual) Monocytes % (Manual) Eosinophils % (Manual) Basophils % (Manual) Seg Neutrophils # Seg Neutrophils # Man Lymphocytes # (Manual) Monocytes # (Manual) Eosinophils # (Manual) Nucleated RBC % Basophils # (Manual) PT INR APTT Heparin Anti-Xa Level ABG pH POC ABG pO2 ABG pO2 ABG HCO3 ABG O2 Saturation ABG Base Excess POC ABG pCO2 ABG Hemoglobin ABG Oxyhemoglobin ABG Chloride ABG Glucose Oxyhemoglobin Sodium Potassium Chloride Carbon Dioxide BUN Creatinine Glucose POC Glucose 149 H 144 H 142 H Lactic Acid Calcium Phosphorus Magnesium AST ALT Lactate Dehydrogenase Total Bilirubin Direct Bilirubin CK-MB (CK-2) C-Reactive Protein NT-Pro-B Natriuret Pep Total Protein Albumin Arterial Blood Glucose Urine WBC (Auto) Urine Creatinine 02/23/20 02/23/20 02/23/20 05:22 11:37 18:14 WBC RBC Hgb Hct MCHC RDW MCV MCH Lymph % (Auto) Teller % (Auto) Teller # Eos # Lymph # (Auto) Teller # (Auto) Eos # (Auto) Seg Neutrophils % Seg Neuts % (Manual) Baso # (Auto) Lymphocytes % (Manual) Monocytes % (Manual) Eosinophils % (Manual) Basophils % (Manual) Seg Neutrophils # Seg Neutrophils # Man Lymphocytes # (Manual) Monocytes # (Manual) Eosinophils # (Manual) Nucleated RBC % Basophils # (Manual) PT INR APTT Heparin Anti-Xa Level ABG pH POC ABG pO2 ABG pO2 ABG HCO3 ABG O2 Saturation ABG Base Excess POC ABG pCO2 ABG Hemoglobin ABG Oxyhemoglobin ABG Chloride ABG Glucose Oxyhemoglobin Sodium Potassium Chloride Carbon Dioxide BUN Creatinine Glucose POC Glucose 144 H 113 H 127 H Lactic Acid Calcium Phosphorus Magnesium AST ALT Lactate Dehydrogenase Total Bilirubin Direct Bilirubin CK-MB (CK-2) C-Reactive Protein NT-Pro-B Natriuret Pep Total Protein Albumin Arterial Blood Glucose Urine WBC (Auto) Urine Creatinine 02/23/20 02/24/20 02/24/20 23:45 05:50 11:24 WBC RBC Hgb Hct MCHC RDW MCV MCH Lymph % (Auto) Teller % (Auto) Teller # Eos # Lymph # (Auto) Teller # (Auto) Eos # (Auto) Seg Neutrophils % Seg Neuts % (Manual) Baso # (Auto) Lymphocytes % (Manual) Monocytes % (Manual) Eosinophils % (Manual) Basophils % (Manual) Seg Neutrophils # Seg Neutrophils # Man Lymphocytes # (Manual) Monocytes # (Manual) Eosinophils # (Manual) Nucleated RBC % Basophils # (Manual) PT INR APTT Heparin Anti-Xa Level ABG pH POC ABG pO2 ABG pO2 ABG HCO3 ABG O2 Saturation ABG Base Excess POC ABG pCO2 ABG Hemoglobin ABG Oxyhemoglobin ABG Chloride ABG Glucose Oxyhemoglobin Sodium Potassium Chloride Carbon Dioxide BUN Creatinine Glucose POC Glucose 123 H 117 H 126 H Lactic Acid Calcium Phosphorus Magnesium AST ALT Lactate Dehydrogenase Total Bilirubin Direct Bilirubin CK-MB (CK-2) C-Reactive Protein NT-Pro-B Natriuret Pep Total Protein Albumin Arterial Blood Glucose Urine WBC (Auto) Urine Creatinine 02/24/20 02/24/20 02/25/20 18:35 23:27 05:20 WBC RBC Hgb Hct MCHC RDW MCV MCH Lymph % (Auto) Teller % (Auto) Teller # Eos # Lymph # (Auto) Teller # (Auto) Eos # (Auto) Seg Neutrophils % Seg Neuts % (Manual) Baso # (Auto) Lymphocytes % (Manual) Monocytes % (Manual) Eosinophils % (Manual) Basophils % (Manual) Seg Neutrophils # Seg Neutrophils # Man Lymphocytes # (Manual) Monocytes # (Manual) Eosinophils # (Manual) Nucleated RBC % Basophils # (Manual) PT INR APTT Heparin Anti-Xa Level ABG pH POC ABG pO2 ABG pO2 ABG HCO3 ABG O2 Saturation ABG Base Excess POC ABG pCO2 ABG Hemoglobin ABG Oxyhemoglobin ABG Chloride ABG Glucose Oxyhemoglobin Sodium Potassium Chloride Carbon Dioxide BUN Creatinine Glucose POC Glucose 121 H 127 H 133 H Lactic Acid Calcium Phosphorus Magnesium AST ALT Lactate Dehydrogenase Total Bilirubin Direct Bilirubin CK-MB (CK-2) C-Reactive Protein NT-Pro-B Natriuret Pep Total Protein Albumin Arterial Blood Glucose Urine WBC (Auto) Urine Creatinine 02/25/20 02/25/20 02/25/20 12:08 17:26 23:33 WBC RBC Hgb Hct MCHC RDW MCV MCH Lymph % (Auto) Teller % (Auto) Teller # Eos # Lymph # (Auto) Teller # (Auto) Eos # (Auto) Seg Neutrophils % Seg Neuts % (Manual) Baso # (Auto) Lymphocytes % (Manual) Monocytes % (Manual) Eosinophils % (Manual) Basophils % (Manual) Seg Neutrophils # Seg Neutrophils # Man Lymphocytes # (Manual) Monocytes # (Manual) Eosinophils # (Manual) Nucleated RBC % Basophils # (Manual) PT INR APTT Heparin Anti-Xa Level ABG pH POC ABG pO2 ABG pO2 ABG HCO3 ABG O2 Saturation ABG Base Excess POC ABG pCO2 ABG Hemoglobin ABG Oxyhemoglobin ABG Chloride ABG Glucose Oxyhemoglobin Sodium Potassium Chloride Carbon Dioxide BUN Creatinine Glucose POC Glucose 109 H 120 H 120 H Lactic Acid Calcium Phosphorus Magnesium AST ALT Lactate Dehydrogenase Total Bilirubin Direct Bilirubin CK-MB (CK-2) C-Reactive Protein NT-Pro-B Natriuret Pep Total Protein Albumin Arterial Blood Glucose Urine WBC (Auto) Urine Creatinine 02/26/20 02/26/20 02/27/20 05:33 07:50 12:13 WBC RBC Hgb Hct MCHC RDW MCV MCH Lymph % (Auto) Teller % (Auto) Teller # Eos # Lymph # (Auto) Teller # (Auto) Eos # (Auto) Seg Neutrophils % Seg Neuts % (Manual) Baso # (Auto) Lymphocytes % (Manual) Monocytes % (Manual) Eosinophils % (Manual) Basophils % (Manual) Seg Neutrophils # Seg Neutrophils # Man Lymphocytes # (Manual) Monocytes # (Manual) Eosinophils # (Manual) Nucleated RBC % Basophils # (Manual) PT INR APTT Heparin Anti-Xa Level ABG pH POC ABG pO2 ABG pO2 ABG HCO3 ABG O2 Saturation ABG Base Excess POC ABG pCO2 ABG Hemoglobin ABG Oxyhemoglobin ABG Chloride ABG Glucose Oxyhemoglobin Sodium Potassium Chloride Carbon Dioxide BUN Creatinine Glucose POC Glucose 106 H 130 H Lactic Acid Calcium Phosphorus Magnesium AST ALT Lactate Dehydrogenase Total Bilirubin Direct Bilirubin CK-MB (CK-2) C-Reactive Protein NT-Pro-B Natriuret Pep Total Protein Albumin Arterial Blood Glucose Urine WBC (Auto) > 182.0 H Urine Creatinine 02/27/20 02/27/20 02/28/20 18:20 23:33 05:01 WBC RBC Hgb Hct MCHC RDW MCV MCH Lymph % (Auto) Teller % (Auto) Teller # Eos # Lymph # (Auto) Teller # (Auto) Eos # (Auto) Seg Neutrophils % Seg Neuts % (Manual) Baso # (Auto) Lymphocytes % (Manual) Monocytes % (Manual) Eosinophils % (Manual) Basophils % (Manual) Seg Neutrophils # Seg Neutrophils # Man Lymphocytes # (Manual) Monocytes # (Manual) Eosinophils # (Manual) Nucleated RBC % Basophils # (Manual) PT INR APTT Heparin Anti-Xa Level ABG pH POC ABG pO2 ABG pO2 ABG HCO3 ABG O2 Saturation ABG Base Excess POC ABG pCO2 ABG Hemoglobin ABG Oxyhemoglobin ABG Chloride ABG Glucose Oxyhemoglobin Sodium Potassium Chloride Carbon Dioxide BUN Creatinine Glucose POC Glucose 109 H 124 H 134 H Lactic Acid Calcium Phosphorus Magnesium AST ALT Lactate Dehydrogenase Total Bilirubin Direct Bilirubin CK-MB (CK-2) C-Reactive Protein NT-Pro-B Natriuret Pep Total Protein Albumin Arterial Blood Glucose Urine WBC (Auto) Urine Creatinine 02/28/20 02/28/20 02/28/20 11:54 18:16 23:03 WBC RBC Hgb Hct MCHC RDW MCV MCH Lymph % (Auto) Teller % (Auto) Teller # Eos # Lymph # (Auto) Teller # (Auto) Eos # (Auto) Seg Neutrophils % Seg Neuts % (Manual) Baso # (Auto) Lymphocytes % (Manual) Monocytes % (Manual) Eosinophils % (Manual) Basophils % (Manual) Seg Neutrophils # Seg Neutrophils # Man Lymphocytes # (Manual) Monocytes # (Manual) Eosinophils # (Manual) Nucleated RBC % Basophils # (Manual) PT INR APTT Heparin Anti-Xa Level ABG pH POC ABG pO2 ABG pO2 ABG HCO3 ABG O2 Saturation ABG Base Excess POC ABG pCO2 ABG Hemoglobin ABG Oxyhemoglobin ABG Chloride ABG Glucose Oxyhemoglobin Sodium Potassium Chloride Carbon Dioxide BUN Creatinine Glucose POC Glucose 133 H 134 H 146 H Lactic Acid Calcium Phosphorus Magnesium AST ALT Lactate Dehydrogenase Total Bilirubin Direct Bilirubin CK-MB (CK-2) C-Reactive Protein NT-Pro-B Natriuret Pep Total Protein Albumin Arterial Blood Glucose Urine WBC (Auto) Urine Creatinine 02/29/20 02/29/20 02/29/20 05:24 11:34 17:12 WBC RBC Hgb Hct MCHC RDW MCV MCH Lymph % (Auto) Teller % (Auto) Teller # Eos # Lymph # (Auto) Teller # (Auto) Eos # (Auto) Seg Neutrophils % Seg Neuts % (Manual) Baso # (Auto) Lymphocytes % (Manual) Monocytes % (Manual) Eosinophils % (Manual) Basophils % (Manual) Seg Neutrophils # Seg Neutrophils # Man Lymphocytes # (Manual) Monocytes # (Manual) Eosinophils # (Manual) Nucleated RBC % Basophils # (Manual) PT INR APTT Heparin Anti-Xa Level ABG pH POC ABG pO2 ABG pO2 ABG HCO3 ABG O2 Saturation ABG Base Excess POC ABG pCO2 ABG Hemoglobin ABG Oxyhemoglobin ABG Chloride ABG Glucose Oxyhemoglobin Sodium Potassium Chloride Carbon Dioxide BUN Creatinine Glucose POC Glucose 139 H 141 H 157 H Lactic Acid Calcium Phosphorus Magnesium AST ALT Lactate Dehydrogenase Total Bilirubin Direct Bilirubin CK-MB (CK-2) C-Reactive Protein NT-Pro-B Natriuret Pep Total Protein Albumin Arterial Blood Glucose Urine WBC (Auto) Urine Creatinine 02/29/20 03/01/20 03/01/20 23:35 06:00 11:53 WBC RBC Hgb Hct MCHC RDW MCV MCH Lymph % (Auto) Teller % (Auto) Teller # Eos # Lymph # (Auto) Teller # (Auto) Eos # (Auto) Seg Neutrophils % Seg Neuts % (Manual) Baso # (Auto) Lymphocytes % (Manual) Monocytes % (Manual) Eosinophils % (Manual) Basophils % (Manual) Seg Neutrophils # Seg Neutrophils # Man Lymphocytes # (Manual) Monocytes # (Manual) Eosinophils # (Manual) Nucleated RBC % Basophils # (Manual) PT INR APTT Heparin Anti-Xa Level ABG pH POC ABG pO2 ABG pO2 ABG HCO3 ABG O2 Saturation ABG Base Excess POC ABG pCO2 ABG Hemoglobin ABG Oxyhemoglobin ABG Chloride ABG Glucose Oxyhemoglobin Sodium Potassium Chloride Carbon Dioxide BUN Creatinine Glucose POC Glucose 120 H 132 H 136 H Lactic Acid Calcium Phosphorus Magnesium AST ALT Lactate Dehydrogenase Total Bilirubin Direct Bilirubin CK-MB (CK-2) C-Reactive Protein NT-Pro-B Natriuret Pep Total Protein Albumin Arterial Blood Glucose Urine WBC (Auto) Urine Creatinine 03/01/20 03/01/20 03/02/20 17:36 23:16 05:12 WBC RBC Hgb Hct MCHC RDW MCV MCH Lymph % (Auto) Teller % (Auto) Teller # Eos # Lymph # (Auto) Teller # (Auto) Eos # (Auto) Seg Neutrophils % Seg Neuts % (Manual) Baso # (Auto) Lymphocytes % (Manual) Monocytes % (Manual) Eosinophils % (Manual) Basophils % (Manual) Seg Neutrophils # Seg Neutrophils # Man Lymphocytes # (Manual) Monocytes # (Manual) Eosinophils # (Manual) Nucleated RBC % Basophils # (Manual) PT INR APTT Heparin Anti-Xa Level ABG pH POC ABG pO2 ABG pO2 ABG HCO3 ABG O2 Saturation ABG Base Excess POC ABG pCO2 ABG Hemoglobin ABG Oxyhemoglobin ABG Chloride ABG Glucose Oxyhemoglobin Sodium Potassium Chloride Carbon Dioxide BUN Creatinine Glucose POC Glucose 171 H 164 H 176 H Lactic Acid Calcium Phosphorus Magnesium AST ALT Lactate Dehydrogenase Total Bilirubin Direct Bilirubin CK-MB (CK-2) C-Reactive Protein NT-Pro-B Natriuret Pep Total Protein Albumin Arterial Blood Glucose Urine WBC (Auto) Urine Creatinine 03/02/20 03/02/20 03/03/20 11:42 18:01 00:06 WBC RBC Hgb Hct MCHC RDW MCV MCH Lymph % (Auto) Teller % (Auto) Teller # Eos # Lymph # (Auto) Teller # (Auto) Eos # (Auto) Seg Neutrophils % Seg Neuts % (Manual) Baso # (Auto) Lymphocytes % (Manual) Monocytes % (Manual) Eosinophils % (Manual) Basophils % (Manual) Seg Neutrophils # Seg Neutrophils # Man Lymphocytes # (Manual) Monocytes # (Manual) Eosinophils # (Manual) Nucleated RBC % Basophils # (Manual) PT INR APTT Heparin Anti-Xa Level ABG pH POC ABG pO2 ABG pO2 ABG HCO3 ABG O2 Saturation ABG Base Excess POC ABG pCO2 ABG Hemoglobin ABG Oxyhemoglobin ABG Chloride ABG Glucose Oxyhemoglobin Sodium Potassium Chloride Carbon Dioxide BUN Creatinine Glucose POC Glucose 150 H 156 H 156 H Lactic Acid Calcium Phosphorus Magnesium AST ALT Lactate Dehydrogenase Total Bilirubin Direct Bilirubin CK-MB (CK-2) C-Reactive Protein NT-Pro-B Natriuret Pep Total Protein Albumin Arterial Blood Glucose Urine WBC (Auto) Urine Creatinine 03/03/20 03/03/20 03/03/20 03:31 11:20 16:55 WBC RBC Hgb Hct MCHC RDW MCV MCH Lymph % (Auto) Teller % (Auto) Teller # Eos # Lymph # (Auto) Teller # (Auto) Eos # (Auto) Seg Neutrophils % Seg Neuts % (Manual) Baso # (Auto) Lymphocytes % (Manual) Monocytes % (Manual) Eosinophils % (Manual) Basophils % (Manual) Seg Neutrophils # Seg Neutrophils # Man Lymphocytes # (Manual) Monocytes # (Manual) Eosinophils # (Manual) Nucleated RBC % Basophils # (Manual) PT INR APTT Heparin Anti-Xa Level ABG pH POC ABG pO2 ABG pO2 ABG HCO3 ABG O2 Saturation ABG Base Excess POC ABG pCO2 ABG Hemoglobin ABG Oxyhemoglobin ABG Chloride ABG Glucose Oxyhemoglobin Sodium Potassium Chloride Carbon Dioxide BUN Creatinine Glucose POC Glucose 164 H 125 H 211 H Lactic Acid Calcium Phosphorus Magnesium AST ALT Lactate Dehydrogenase Total Bilirubin Direct Bilirubin CK-MB (CK-2) C-Reactive Protein NT-Pro-B Natriuret Pep Total Protein Albumin Arterial Blood Glucose Urine WBC (Auto) Urine Creatinine 03/04/20 03/04/20 03/04/20 00:29 05:20 12:09 WBC RBC Hgb Hct MCHC RDW MCV MCH Lymph % (Auto) Teller % (Auto) Teller # Eos # Lymph # (Auto) Teller # (Auto) Eos # (Auto) Seg Neutrophils % Seg Neuts % (Manual) Baso # (Auto) Lymphocytes % (Manual) Monocytes % (Manual) Eosinophils % (Manual) Basophils % (Manual) Seg Neutrophils # Seg Neutrophils # Man Lymphocytes # (Manual) Monocytes # (Manual) Eosinophils # (Manual) Nucleated RBC % Basophils # (Manual) PT INR APTT Heparin Anti-Xa Level ABG pH POC ABG pO2 ABG pO2 ABG HCO3 ABG O2 Saturation ABG Base Excess POC ABG pCO2 ABG Hemoglobin ABG Oxyhemoglobin ABG Chloride ABG Glucose Oxyhemoglobin Sodium Potassium Chloride Carbon Dioxide BUN Creatinine Glucose POC Glucose 169 H 154 H 197 H Lactic Acid Calcium Phosphorus Magnesium AST ALT Lactate Dehydrogenase Total Bilirubin Direct Bilirubin CK-MB (CK-2) C-Reactive Protein NT-Pro-B Natriuret Pep Total Protein Albumin Arterial Blood Glucose Urine WBC (Auto) Urine Creatinine 03/04/20 03/04/20 03/04/20 18:00 20:38 20:38 WBC RBC Hgb 10.1 L Hct 32.7 L MCHC 31 L RDW 24.7 H MCV 79 L MCH 24 L Lymph % (Auto) Teller % (Auto) 8.9 H Teller # Eos # Lymph # (Auto) Teller # (Auto) Eos # (Auto) Seg Neutrophils % Seg Neuts % (Manual) Baso # (Auto) Lymphocytes % (Manual) Monocytes % (Manual) Eosinophils % (Manual) Basophils % (Manual) Seg Neutrophils # Seg Neutrophils # Man Lymphocytes # (Manual) Monocytes # (Manual) Eosinophils # (Manual) Nucleated RBC % Basophils # (Manual) PT INR APTT Heparin Anti-Xa Level ABG pH POC ABG pO2 ABG pO2 ABG HCO3 ABG O2 Saturation ABG Base Excess POC ABG pCO2 ABG Hemoglobin ABG Oxyhemoglobin ABG Chloride ABG Glucose Oxyhemoglobin Sodium 136 L Potassium Chloride Carbon Dioxide BUN 25 H Creatinine 0.5 L Glucose 148 H POC Glucose 146 H Lactic Acid Calcium Phosphorus Magnesium AST ALT Lactate Dehydrogenase Total Bilirubin Direct Bilirubin CK-MB (CK-2) C-Reactive Protein NT-Pro-B Natriuret Pep Total Protein Albumin Arterial Blood Glucose Urine WBC (Auto) Urine Creatinine 03/04/20 03/05/20 03/05/20 23:17 05:44 11:32 WBC RBC Hgb Hct MCHC RDW MCV MCH Lymph % (Auto) Teller % (Auto) Teller # Eos # Lymph # (Auto) Teller # (Auto) Eos # (Auto) Seg Neutrophils % Seg Neuts % (Manual) Baso # (Auto) Lymphocytes % (Manual) Monocytes % (Manual) Eosinophils % (Manual) Basophils % (Manual) Seg Neutrophils # Seg Neutrophils # Man Lymphocytes # (Manual) Monocytes # (Manual) Eosinophils # (Manual) Nucleated RBC % Basophils # (Manual) PT INR APTT Heparin Anti-Xa Level ABG pH POC ABG pO2 ABG pO2 ABG HCO3 ABG O2 Saturation ABG Base Excess POC ABG pCO2 ABG Hemoglobin ABG Oxyhemoglobin ABG Chloride ABG Glucose Oxyhemoglobin Sodium Potassium Chloride Carbon Dioxide BUN Creatinine Glucose POC Glucose 139 H 155 H 124 H Lactic Acid Calcium Phosphorus Magnesium AST ALT Lactate Dehydrogenase Total Bilirubin Direct Bilirubin CK-MB (CK-2) C-Reactive Protein NT-Pro-B Natriuret Pep Total Protein Albumin Arterial Blood Glucose Urine WBC (Auto) Urine Creatinine 03/05/20 03/05/20 03/06/20 17:45 23:18 12:16 WBC RBC Hgb Hct MCHC RDW MCV MCH Lymph % (Auto) Teller % (Auto) Teller # Eos # Lymph # (Auto) Teller # (Auto) Eos # (Auto) Seg Neutrophils % Seg Neuts % (Manual) Baso # (Auto) Lymphocytes % (Manual) Monocytes % (Manual) Eosinophils % (Manual) Basophils % (Manual) Seg Neutrophils # Seg Neutrophils # Man Lymphocytes # (Manual) Monocytes # (Manual) Eosinophils # (Manual) Nucleated RBC % Basophils # (Manual) PT INR APTT Heparin Anti-Xa Level ABG pH POC ABG pO2 ABG pO2 ABG HCO3 ABG O2 Saturation ABG Base Excess POC ABG pCO2 ABG Hemoglobin ABG Oxyhemoglobin ABG Chloride ABG Glucose Oxyhemoglobin Sodium Potassium Chloride Carbon Dioxide BUN Creatinine Glucose POC Glucose 171 H 114 H 155 H Lactic Acid Calcium Phosphorus Magnesium AST ALT Lactate Dehydrogenase Total Bilirubin Direct Bilirubin CK-MB (CK-2) C-Reactive Protein NT-Pro-B Natriuret Pep Total Protein Albumin Arterial Blood Glucose Urine WBC (Auto) Urine Creatinine 03/06/20 03/06/20 03/07/20 17:27 23:48 06:02 WBC RBC Hgb Hct MCHC RDW MCV MCH Lymph % (Auto) Teller % (Auto) Teller # Eos # Lymph # (Auto) Teller # (Auto) Eos # (Auto) Seg Neutrophils % Seg Neuts % (Manual) Baso # (Auto) Lymphocytes % (Manual) Monocytes % (Manual) Eosinophils % (Manual) Basophils % (Manual) Seg Neutrophils # Seg Neutrophils # Man Lymphocytes # (Manual) Monocytes # (Manual) Eosinophils # (Manual) Nucleated RBC % Basophils # (Manual) PT INR APTT Heparin Anti-Xa Level ABG pH POC ABG pO2 ABG pO2 ABG HCO3 ABG O2 Saturation ABG Base Excess POC ABG pCO2 ABG Hemoglobin ABG Oxyhemoglobin ABG Chloride ABG Glucose Oxyhemoglobin Sodium Potassium Chloride Carbon Dioxide BUN Creatinine Glucose POC Glucose 116 H 142 H 161 H Lactic Acid Calcium Phosphorus Magnesium AST ALT Lactate Dehydrogenase Total Bilirubin Direct Bilirubin CK-MB (CK-2) C-Reactive Protein NT-Pro-B Natriuret Pep Total Protein Albumin Arterial Blood Glucose Urine WBC (Auto) Urine Creatinine 03/07/20 03/08/20 03/08/20 11:36 05:18 11:51 WBC RBC Hgb Hct MCHC RDW MCV MCH Lymph % (Auto) Teller % (Auto) Teller # Eos # Lymph # (Auto) Teller # (Auto) Eos # (Auto) Seg Neutrophils % Seg Neuts % (Manual) Baso # (Auto) Lymphocytes % (Manual) Monocytes % (Manual) Eosinophils % (Manual) Basophils % (Manual) Seg Neutrophils # Seg Neutrophils # Man Lymphocytes # (Manual) Monocytes # (Manual) Eosinophils # (Manual) Nucleated RBC % Basophils # (Manual) PT INR APTT Heparin Anti-Xa Level ABG pH POC ABG pO2 ABG pO2 ABG HCO3 ABG O2 Saturation ABG Base Excess POC ABG pCO2 ABG Hemoglobin ABG Oxyhemoglobin ABG Chloride ABG Glucose Oxyhemoglobin Sodium Potassium Chloride Carbon Dioxide BUN Creatinine Glucose POC Glucose 127 H 142 H 135 H Lactic Acid Calcium Phosphorus Magnesium AST ALT Lactate Dehydrogenase Total Bilirubin Direct Bilirubin CK-MB (CK-2) C-Reactive Protein NT-Pro-B Natriuret Pep Total Protein Albumin Arterial Blood Glucose Urine WBC (Auto) Urine Creatinine 03/08/20 03/08/20 03/09/20 18:14 23:45 05:36 WBC RBC Hgb Hct MCHC RDW MCV MCH Lymph % (Auto) Teller % (Auto) Teller # Eos # Lymph # (Auto) Teller # (Auto) Eos # (Auto) Seg Neutrophils % Seg Neuts % (Manual) Baso # (Auto) Lymphocytes % (Manual) Monocytes % (Manual) Eosinophils % (Manual) Basophils % (Manual) Seg Neutrophils # Seg Neutrophils # Man Lymphocytes # (Manual) Monocytes # (Manual) Eosinophils # (Manual) Nucleated RBC % Basophils # (Manual) PT INR APTT Heparin Anti-Xa Level ABG pH POC ABG pO2 ABG pO2 ABG HCO3 ABG O2 Saturation ABG Base Excess POC ABG pCO2 ABG Hemoglobin ABG Oxyhemoglobin ABG Chloride ABG Glucose Oxyhemoglobin Sodium Potassium Chloride Carbon Dioxide BUN Creatinine Glucose POC Glucose 125 H 143 H 158 H Lactic Acid Calcium Phosphorus Magnesium AST ALT Lactate Dehydrogenase Total Bilirubin Direct Bilirubin CK-MB (CK-2) C-Reactive Protein NT-Pro-B Natriuret Pep Total Protein Albumin Arterial Blood Glucose Urine WBC (Auto) Urine Creatinine 03/09/20 03/09/20 03/09/20 06:32 06:32 11:34 WBC RBC Hgb 9.8 L Hct 31.6 L MCHC 31 L RDW 23.1 H MCV 80 L MCH 25 L Lymph % (Auto) 35.1 H Teller % (Auto) 11.4 H Teller # Eos # Lymph # (Auto) Teller # (Auto) Eos # (Auto) Seg Neutrophils % Seg Neuts % (Manual) Baso # (Auto) Lymphocytes % (Manual) Monocytes % (Manual) Eosinophils % (Manual) Basophils % (Manual) Seg Neutrophils # Seg Neutrophils # Man Lymphocytes # (Manual) Monocytes # (Manual) Eosinophils # (Manual) Nucleated RBC % Basophils # (Manual) PT INR APTT Heparin Anti-Xa Level ABG pH POC ABG pO2 ABG pO2 ABG HCO3 ABG O2 Saturation ABG Base Excess POC ABG pCO2 ABG Hemoglobin ABG Oxyhemoglobin ABG Chloride ABG Glucose Oxyhemoglobin Sodium 136 L Potassium Chloride Carbon Dioxide BUN 25 H Creatinine 0.6 L Glucose 170 H POC Glucose 140 H Lactic Acid Calcium Phosphorus Magnesium AST ALT Lactate Dehydrogenase Total Bilirubin Direct Bilirubin CK-MB (CK-2) C-Reactive Protein NT-Pro-B Natriuret Pep Total Protein Albumin Arterial Blood Glucose Urine WBC (Auto) Urine Creatinine Allied health notes reviewed: RT
[2020-03-09] MEDS: CLOPIDOGREL 75 MG TAB PO SCH (14:36)
[2020-03-09] MEDS: ONDANSETRON 4 MG/2 ML INJ IV PRN ×2 (14:36→21:31)
[2020-03-09] MEDS: DIGOXIN 0.125 MG TAB PO SCH (18:50)
[2020-03-09] MEDS: TAMSULOSIN 0.4 MG CAP PO SCH (21:37)
[2020-03-09] MEDS: POLYETHYLENE GLYCOL 3350 17 GM POWDER PO SCH (21:38)
[2020-03-10] MEDS: INSULIN REGULAR, HUMAN 100 UNIT/ML 3ML VIAL SUB-Q SCH ×4 (06:31→18:38)
[2020-03-10] MEDS: ONDANSETRON 4 MG/2 ML INJ IV PRN (07:02)
--- NOTE | 2020-03-10 08:26 | XRay Report ---
CHEST 1 VIEW INDICATION: Respiratory failure. COMPARISON: 03/01/2020 FINDINGS: Support devices: Tracheostomy remains in good position. Heart: Stable borderline heart size. Lungs/Pleura: Moderate pulmonary venous congestion, small to medium right pleural effusion and trace left pleural effusion are identified. These appear slightly increased since the previous exam. Additional findings: None. IMPRESSION: Mild CHF. Signer Name: Nicholas St Jr, MD Signed: 03/10/2020 8:21 AM Workstation Name: [id number]
--- NOTE | 2020-03-10 09:10 | Progress Note ---
Assessment and Plan Assessment and plan: --Acute on chronic hypoxemic respiratory failure; Patient has tracheostomy on vent Continue nebulizers, , trach care Wean off ventilator as tolerated Pulmonary critical following --Ischemic cardiomyopathy Cardiology is following, status post cardiac catheterization on 01/22/2020; Coronary artery disease status post PCI and stent to the LAD Continue current cardiac medications --Acute exacerbation of COPD; Patient is currently on ventilatory support Continue nebulizers --Left lower lobe PE; Continue Eliquis, ventilatory support --Acute right lower extremity DVT; Patient is on Eliquis --Bilateral multifocal pneumonia/community-acquired Completed antibiotics, improved --Severe sepsis/bilateral pneumonia: Completed antibiotics COVID-19 test; 11/24/2019; negative 11/26/2019; negative 12/29/2019: Negative --Paroxysmal atrial fibrillation; Now rate controlled, Stable on amiodarone and Eliquis --Acute on chronic combined systolic and diastolic congestive heart failure Ischemic cardiomyopathy left ventricular ejection fraction 40 to 45% --H/o CAD [[facility] 12/2018 in-stent restenosis] Patient is stable on current cardiac medications --Hypertensive emergency; present on admission Reasonable blood pressures, continue current antihypertensives As needed medications --History of alcohol abuse/alcohol withdrawal; Was on CIWA protocol, now stable --Oropharyngeal dysphagia; status post PEG placement Continue PEG feeds per protocol --History of partial small bowel obstruction; resolved --Obesity; BMI 34.7 Patient needs weight reduction when medically stable --Severe protein calorie malnutrition/hypoalbuminemia Nutrition supplements, dietitian following, PEG feeds --DVT prophylaxis;Eliquis --Full CODE STATUS DC planning per case management/LTAC versus home when medically stable We will closely monitor the patient and adjust the management as needed Plan of care reviewed with the patient's nurse. The high probability of a clinically significant, sudden or life threatening deterioration of the [Respiratory, cardiovascular & neurological] system(s) required my full and direct attention, intervention and personal management. The aggregate critical care time was [32] minutes without overlap. Time includes spent on [x] Data Review and interpretation [x] Patient assessment and monitoring of vital signs [x] Documentation [x] Medication orders and management 02/22. Awake and alert on vent. Vitals stable. 02/23. Awake and alert on vent. Requests for ice. Vitals stable 02/24. Trach to vent. Continue rate control with metoprolol and digoxin. Amiodarone discontinued due to elevated liver transaminases. Eliquis for anticoagulation of acute PE/DVT. Transferred to [facility] 02/25. Seen in IM. Requests for ice. RN to provide a cube of ice. Vitals stable. 02/26. No change in medical condition. Slightly tachy this AM. Will monitor. 02/27. Cardiology started him on a beta hebert. Still on vent 02/28. Discharge planning as per dry cans operator. Still on vent. Tachycardia noted. 03/01/2020; patient is tachycardic, still on the vent. Discharge management as per dry cans operator. 03/02/2020; patient is on a vent and trach. Discharge is per dry cans operator. 03/03/2012; patient is on vent and trach patient is alert and oriented. 03/04/2020; patient is on vent and trach, patient is alert. 03/05/2020; patient is on vent and trach, patient is alert. 03/06/2020 tracheostomy on vent , patient is alert, possible LTAC placement 03/08/2020 remains on ventilatory support; wean off the vent, pending LTAC placement 03/09/2020; clinically no change, tracheostomy on ventilatory support, unable to wean, awaiting LTAC placement, social issues 03/11/2020; patient is more alert and awake and verbal, not in acute distress, remains ventilatory support, unable to wean Multiple social issues. Awaiting placement, will adjust vent setting and monitor closely History Interval history: I have seen and examined the patient at the bedside this morning in ICU No new events reported by the nursing staff Tracheostomy remains on ventilatory support Patient is alert and awake anxious to go home Vital signs reviewed Hospitalist Physical - Constitutional Vitals: Temp Pulse Resp BP Pulse Ox 97.7 F 123 H 20 106/85 99 03/10/20 08:00 03/10/20 08:27 03/10/20 08:00 03/10/20 08:27 03/10/20 08:32 General appearance: Present: no acute distress, well-nourished, other (Tracheostomy on vent) - EENT Eyes: Present: PERRL, EOM intact. Absent: scleral icterus - Neck Neck: Present: supple, other (Colostomy on vent) - Respiratory Respiratory effort: normal Respiratory: bilateral: diminished, rhonchi, negative: rales, wheezing - Cardiovascular Rhythm: regular Heart Sounds: Present: S1 & S2 - Extremities Extremities: no ischemia, No edema - Abdominal General gastrointestinal: soft, non-tender, non-distended, normal bowel sounds - Integumentary Integumentary: Present: clear, warm - Psychiatric Psychiatric: other (On ventilatory support) - Neurologic Neurologic: other (On ventilatory support) HEART Score - HEART Score Troponin: Troponin T < 0.010 ng/mL (0.00-0.029) 01/19/20 01:35 Results - Labs CBC & Chem 7: 03/09/20 06:32 03/09/20 06:32 Labs: Laboratory Last Values WBC 6.1 K/mm3 (4.5-11.0) 03/09/20 06:32 RBC 3.98 M/mm3 (3.65-5.03) 03/09/20 06:32 Hgb 9.8 gm/dl (11.8-15.2) L 03/09/20 06:32 Hct 31.6 % (35.5-45.6) L 03/09/20 06:32 MCV 80 fl (84-94) L 03/09/20 06:32 MCH 25 pg (28-32) L 03/09/20 06:32 MCHC 31 % (32-34) L 03/09/20 06:32 RDW 23.1 % (13.2-15.2) H 03/09/20 06:32 Plt Count 200 K/mm3 (140-440) 03/09/20 06:32 Lymph % (Auto) 35.1 % (13.4-35.0) H 03/09/20 06:32 [place] % (Auto) 11.4 % (0.0-7.3) H 03/09/20 06:32 Eos % (Auto) 2.9 % (0.0-4.3) 03/09/20 06:32 Baso % (Auto) 0.6 % (0.0-1.8) 03/09/20 06:32 Lymph # (Auto) 2.1 K/mm3 (1.2-5.4) 03/09/20 06:32 [place] # (Auto) 0.7 K/mm3 (0.0-0.8) 03/09/20 06:32 Eos # (Auto) 0.2 K/mm3 (0.0-0.4) 03/09/20 06:32 Baso # (Auto) 0.0 K/mm3 (0.0-0.1) 03/09/20 06:32 Add Manual Diff Complete 02/15/20 06:59 Total Counted 100 02/15/20 06:59 Seg Neutrophils % 50.0 % (40.0-70.0) 03/09/20 06:32 Seg Neuts % (Manual) 58.0 % (40.0-70.0) 02/15/20 06:59 Band Neutrophils % 0 % 02/15/20 06:59 Lymphocytes % (Manual) 34.0 % (13.4-35.0) 02/15/20 06:59 Reactive Lymphs % (Man) 1.0 % 02/15/20 06:59 Monocytes % (Manual) 4.0 % (0.0-7.3) 02/15/20 06:59 Eosinophils % (Manual) 0 % (0.0-4.3) 02/15/20 06:59 Basophils % (Manual) 2.0 % (0.0-1.8) H 02/15/20 06:59 Metamyelocytes % 1.0 % 02/15/20 06:59 Myelocytes % 0 % 02/15/20 06:59 Promyelocytes % 0 % 02/15/20 06:59 Blast Cells % 0 % 02/15/20 06:59 Nucleated RBC % 1.0 % (0.0-0.9) H 02/15/20 06:59 Seg Neutrophils # 3.0 K/mm3 (1.8-7.7) 03/09/20 06:32 Seg Neutrophils # Man 5.9 K/mm3 (1.8-7.7) 02/15/20 06:59 Band Neutrophils # 0.0 K/mm3 02/15/20 06:59 Lymphocytes # (Manual) 3.5 K/mm3 (1.2-5.4) 02/15/20 06:59 Abs React Lymphs (Man) 0.1 K/mm3 02/15/20 06:59 Monocytes # (Manual) 0.4 K/mm3 (0.0-0.8) 02/15/20 06:59 Eosinophils # (Manual) 0.0 K/mm3 (0.0-0.4) 02/15/20 06:59 Basophils # (Manual) 0.2 K/mm3 (0.0-0.1) H 02/15/20 06:59 Metamyelocytes # 0.1 K/mm3 02/15/20 06:59 Myelocytes # 0.0 K/mm3 02/15/20 06:59 Promyelocytes # 0.0 K/mm3 02/15/20 06:59 Blast Cells # 0.0 K/mm3 02/15/20 06:59 WBC Morphology Not Reportable 02/15/20 06:59 Hypersegmented Neuts Not Reportable 02/15/20 06:59 Hyposegmented Neuts Not Reportable 02/15/20 06:59 Hypogranular Neuts Not Reportable 02/15/20 06:59 Smudge Cells Not Reportable 02/15/20 06:59 Toxic Granulation Not Reportable 02/15/20 06:59 Toxic Vacuolation Not Reportable 02/15/20 06:59 Dohle Bodies Not Reportable 02/15/20 06:59 Pelger-Huet Anomaly Not Reportable 02/15/20 06:59 Hector Rods Not Reportable 02/15/20 06:59 Platelet Estimate Consistent w auto 02/15/20 06:59 Clumped Platelets Not Reportable 02/15/20 06:59 Plt Clumps, EDTA Not Reportable 02/15/20 06:59 Large Platelets Not Reportable 02/15/20 06:59 Giant Platelets Not Reportable 02/15/20 06:59 Platelet Satelliting Not Reportable 02/15/20 06:59 Plt Morphology Comment Giant platelets 02/15/20 06:59 RBC Morphology Not Reportable 02/15/20 06:59 Dimorphic RBCs Not Reportable 02/15/20 06:59 Polychromasia Not Reportable 02/15/20 06:59 Hypochromasia 1+ 02/15/20 06:59 Poikilocytosis Few 02/15/20 06:59 Anisocytosis 1+ 02/15/20 06:59 Microcytosis Not Reportable 02/15/20 06:59 Macrocytosis Not Reportable 02/15/20 06:59 Spherocytes Not Reportable 02/15/20 06:59 Pappenheimer Bodies Not Reportable 02/15/20 06:59 Sickle Cells Not Reportable 02/15/20 06:59 Target Cells 1+ 02/15/20 06:59 Tear Drop Cells Few 02/15/20 06:59 Ovalocytes Not Reportable 02/15/20 06:59 Helmet Cells Not Reportable 02/15/20 06:59 [place] Bodies Not Reportable 02/15/20 06:59 [place] Rings Not Reportable 02/15/20 06:59 Oc Cells Not Reportable 02/15/20 06:59 Bite Cells Not Reportable 02/15/20 06:59 Crenated Cell Not Reportable 02/15/20 06:59 Elliptocytes Few 02/15/20 06:59 Acanthocytes (Spur) Not Reportable 02/15/20 06:59 Rouleaux Not Reportable 02/15/20 06:59 Hemoglobin C Crystals Not Reportable 02/15/20 06:59 Schistocytes Not Reportable 02/15/20 06:59 Malaria parasites Not Reportable 02/15/20 06:59 Clifford Bodies Not Reportable 02/15/20 06:59 Hem Pathologist Commnt No 02/15/20 06:59 PT 27.0 Sec. (12.2-14.9) H 02/07/20 15:03 INR 2.46 (0.87-1.13) H 02/07/20 15:03 APTT 31.5 Sec. (24.2-36.6) 01/22/20 09:58 Heparin Anti-Xa Level 1.34 U.I./ml (0.3-0.7) H 01/22/20 04:45 ABG pH 7.461 pH Units (7.350-7.450) H 02/20/20 06:45 POC ABG pCO2 34.8 mmHg (32.0-48.0) 02/11/20 14:11 ABG pCO2 47.8 mm Hg 02/20/20 06:45 POC ABG pO2 77.7 mmHg (83-108) L 02/11/20 14:11 ABG pO2 88.7 mm Hg (80.0-90.0) 02/20/20 06:45 POC ABG HCO3 26.7 02/11/20 14:11 ABG HCO3 33.3 mmol/L (20.0-26.0) H 02/20/20 06:45 ABG O2 Saturation 97.2 % (95.0-99.0) 02/20/20 06:45 ABG O2 Content 13.3 (0.0-44) 02/20/20 06:45 POC ABG Base Excess 3.6 02/11/20 14:11 ABG Base Excess 8.4 mmol/L (-2.0-3.0) H 02/20/20 06:45 ABG Hemoglobin 10.0 gm/dl (14.0-18.0) L 02/20/20 06:45 ABG Oxyhemoglobin 84 (94-98) L 12/22/19 03:22 ABG Carboxyhemoglobin 2.9 % (0.0-5.0) 02/20/20 06:45 ABG Methemoglobin 0.4 % (0.0-1.5) 02/20/20 06:45 ABG Sodium 144.7 mmol/L (136.0-145.0) 02/11/20 14:11 ABG Potassium 3.5 mmol/L (3.40-4.50) 02/11/20 14:11 ABG Chloride 108.0 mmol/L (98-107) H 02/11/20 14:11 ABG Glucose 151 mg/dL (65-95) H 02/11/20 14:11 Oxyhemoglobin 94.1 % (95.0-99.0) L 02/20/20 06:45 Carboxyhemoglobin 0.7 (0.5-1.5) 12/22/19 03:22 FiO2 30 % 02/20/20 06:45 Sodium 136 mmol/L (137-145) L 03/09/20 06:32 Potassium 4.2 mmol/L (3.6-5.0) 03/09/20 06:32 Chloride 98.9 mmol/L (98-107) 03/09/20 06:32 Carbon Dioxide 29 mmol/L (22-30) 03/09/20 06:32 Anion Gap 12 mmol/L 03/09/20 06:32 BUN 25 mg/dL (9-20) H 03/09/20 06:32 Creatinine 0.6 mg/dL (0.8-1.3) L 03/09/20 06:32 Estimated GFR > 60 ml/min 03/09/20 06:32 BUN/Creatinine Ratio 42 % 03/09/20 06:32 Glucose 170 mg/dL (75-100) H 03/09/20 06:32 POC Glucose 138 mg/dL (70-105) H 03/10/20 05:41 Lactic Acid 1.60 mmol/L (0.7-2.0) 02/03/20 12:49 Calcium 8.9 mg/dL (8.4-10.2) 03/09/20 06:32 Ferritin 84.4 ng/mL (30.0-300.0) 11/24/19 04:53 Phosphorus 4.10 mg/dL (2.5-4.5) 01/31/20 19:24 Magnesium 2.40 mg/dL (1.7-2.3) H 02/10/20 07:40 Total Bilirubin 1.30 mg/dL (0.1-1.2) H 02/08/20 19:00 Direct Bilirubin 0.9 mg/dL (0-0.2) H 02/08/20 19:00 Indirect Bilirubin 0.4 mg/dL 02/08/20 19:00 Total Creatine Kinase 141 units/L (55-170) 11/24/19 02:53 CK-MB (CK-2) 4.3 ng/mL (0.0-4.0) H 11/24/19 02:53 AST 309 units/L (5-40) H 02/08/20 19:00 ALT 650 units/L (7-56) H 02/08/20 19:00 CK-MB (CK-2) Rel Index 3.0 (0-4) 11/24/19 02:53 Alkaline Phosphatase 109 units/L (35-129) 02/08/20 19:00 C-Reactive Protein 8.50 mg/dL (0.00-1.30) H 12/01/19 12:16 Ammonia 35.0 umol/L (25-60) 02/03/20 12:49 Lactate Dehydrogenase 228 units/L (91-180) H 12/19/19 04:45 Troponin T < 0.010 ng/mL (0.00-0.029) 01/19/20 01:35 NT-Pro-B Natriuret Pep 3866 pg/mL (0-900) H 01/01/20 10:40 Total Protein 6.2 g/dL (6.3-8.2) L 02/08/20 19:00 Albumin 2.7 g/dL (3.9-5) L 02/08/20 19:00 Albumin/Globulin Ratio 0.8 % 02/08/20 19:00 Procalcitonin 0.44 ng/mL (<0.15) 02/03/20 12:49 Arterial Blood Glucose 151 mg/dL (65-95) H 02/11/20 14:11 Arterial Blood Ionized Calcium 4.7 mg/dL (4.6-5.3) 02/11/20 14:11 Urine Color Cecy (Yellow) 02/26/20 07:50 Urine Turbidity Clear (Clear) 02/26/20 07:50 Urine pH 5.0 (5.0-7.0) 02/26/20 07:50 Ur Specific [place] 1.025 (1.003-1.030) 02/26/20 07:50 Urine Protein 30 mg/dl mg/dL (Negative) 02/26/20 07:50 Urine Glucose (UA) Neg mg/dL (Negative) 02/26/20 07:50 Urine Ketones Neg mg/dL (Negative) 02/26/20 07:50 Urine Blood Sm (Negative) 02/26/20 07:50 Urine Nitrite Neg (Negative) 02/26/20 07:50 Urine Bilirubin Neg (Negative) 02/26/20 07:50 Urine Urobilinogen 4.0 mg/dL (<2.0) 02/26/20 07:50 Ur Leukocyte Esterase Lg (Negative) 02/26/20 07:50 Urine WBC (Auto) > 182.0 /HPF (0.0-6.0) H 02/26/20 07:50 Urine RBC (Auto) 84.0 /HPF (0.0-6.0) 02/26/20 07:50 U Epithel Cells (Auto) 2.0 /HPF (0-13.0) 12/31/19 18:04 Urine Bacteria (Auto) 4+ /HPF (Negative) 02/26/20 07:50 Urine WBC Clumps 2+ /HPF 02/26/20 07:50 Urine Mucus 1+ /HPF 02/26/20 07:50 Urine Creatinine 57.4 mg/dL (0.1-20.0) H 01/31/20 Unknown Urine Sodium 59 mmol/L 01/31/20 Unknown Vancomycin Trough 14.2 ug/mL (5.0-20.0) 12/13/19 15:01 Coronavirus (PCR) Negative (Negative) 12/29/19 10:07 Hepatitis A IgM Ab Non-reactive (NonReactive) 02/05/20 06:37 Hep Bs Antigen Non-reactive (Negative) 02/05/20 06:37 Hep B Core IgM Ab Non-reactive (NonReactive) 02/05/20 06:37 Hepatitis C Antibody Non-reactive (NonReactive) 02/05/20 06:37 Blood Type O POSITIVE 01/21/20 13:00 Antibody Screen Negative 01/21/20 13:00 - Diagnostic Impressions Diagnostic Impressions: Echocardiogram 11/29/19 07:37 Transthoracic Echocardiogram Indication: CHF BP: 116/72 HR: 33 Conclusions *The study is technically limited due to poor acoustic windows. *Global left ventricular systolic function is normal. *The estimated ejection fraction is 50-55%. *Mild concentric left ventricular hypertrophy is observed. *There is trace of mitral regurgitation. *There is mild tricuspid regurgitation. Findings Procedure Info: The study quality is poor. The study is technically limited due to poor acoustic windows. The study is technically limited due to patient body habitus. Left Ventricle: The left ventricular chamber size is normal. Mild concentric left ventricular hypertrophy is observed. Global left ventricular systolic function is normal. The estimated ejection fraction is 50-55%. Left Atrium: The left atrial chamber size is normal. Right Ventricle: The right ventricular cavity size is normal. Right Atrium: The right atrial cavity size is normal. Aortic Valve: The aortic valve leaflets are moderately thickened. There is trace of aortic regurgitation. There is no evidence of aortic stenosis. Mitral Valve: The mitral valve leaflets are mildly thickened. There is trace of mitral regurgitation. There is no evidence of mitral stenosis. Tricuspid Valve: There is mild tricuspid regurgitation. No pulmonary hypertension is noted. Pulmonic Valve: There is trace pulmonic regurgitation. Pericardium: There is no pericardial effusion. Aorta: There is no dilatation of the aortic root. Venous: The inferior vena cava appears normal in size. Contrast: Definity was used to optimize study. Intravenous contrast was used to enhance endocardial border definition. Measurements Chambers 2D Name Value Normal Range Ao root diameter (2D) 3.4 cm (2 - 3.7) Aortic Valve Name Value Normal Range AV Vmax 0.98 m/sec - AV VTI 16.76 cm - AV peak gradient 3.83 mmHg - AV mean gradient 2.57 mmHg - LVOT diameter 3.11 cm - LVOT Vmax 0.68 m/sec - LVOT VTI 11.52 cm - LVOT peak gradient 1.84 mmHg - LVOT mean gradient 1.27 mmHg - SV LVOT 87.31 ml - MALOU (continuity Vmax) 5.24 cm2 - MALOU (continuity VTI) 5.21 cm2 - Tricuspid Valve Name Value Normal Range IVC diameter 2.24 cm (1.2 - 2.3) Hoffman/IV: Voiding Method Indwelling Catheter IV Catheter Type [Left INT / Saline Lock Antecubital] IV Catheter Type [Right INT / Saline Lock Forearm] IV Catheter Type [Right Hand] Peripheral IV IV Catheter Type [Right Upper INT / Saline Lock arm] IV Catheter Type [Left Upper Mid-line arm] IV Catheter Type [Left Forearm Peripheral IV ] IV Catheter Type [Left Hand] INT / Saline Lock IV Catheter Type [Left Wrist] INT / Saline Lock IV Catheter Type [Right Peripheral IV Antecubital] Active Medications - Current Medications Current Medications: Generic Name Dose Route Start Last Admin Trade Name Freq PRN Reason Stop Dose Admin Lipase/Protease/Amylase 1 each 01/09/20 12:01 03/07/20 12:56 Lipase 10,500/Protease 25,000/Amylase 43,750 (Units) Dr Lauren FEEDTUBE 1 each PRN PRN Administration For Clogged Feeding Tube Apixaban 5 mg 01/22/20 22:00 03/09/20 21:37 Eliquis PO 5 mg Q12HR CAR Administration Protocol Atorvastatin Calcium 40 mg 01/20/20 22:00 03/09/20 21:37 Lipitor PO 40 mg QHS CAR Administration Clopidogrel Bisulfate 75 mg 01/21/20 06:00 03/09/20 14:36 Plavix PO 75 mg QDAY CAR Administration Dextrose 50 ml 01/31/20 18:51 02/05/20 00:56 D50w (25gm) Syringe IV 50 ml Q30MIN PRN Administration Hypoglycemia Protocol Digoxin 0.125 mg 02/25/20 17:00 03/09/20 18:50 Lanoxin PO 0.125 mg DAILY@1700 [facility] Administration Docusate Sodium 100 mg 02/22/20 10:00 03/09/20 21:38 Colace FEEDTUBE 100 mg BID CAR Administration Glycopyrrolate 2 mg 02/24/20 21:00 03/09/20 21:37 Glycopyrrolate PO 2 mg TID CAR Administration Haloperidol Lactate 5 mg 02/10/20 14:20 03/03/20 02:25 Haldol IV 5 mg Q6H PRN Administration Agitation Hydrophilic Ointment 1 applic 01/17/20 15:26 02/24/20 23:20 Vaseline Lip Therapy TP 1 applic DIRECT PRN Administration Dry Lips Insulin Human Regular 0 unit 02/01/20 18:00 03/10/20 06:31 Humulin R SUB-Q Not Given Q6H [facility] Protocol Lansoprazole 30 mg 02/05/20 16:00 03/09/20 10:06 Lansoprazole 30 Mg Solutab FEEDTUBE 30 mg QDAY [facility] Administration Metoprolol Tartrate 5 mg 01/11/20 08:00 03/03/20 01:46 Metoprolol Tartrate 5 Mg/5 Ml Inj IV 5 mg Q6H PRN Administration SEE INSTRUCTIONS Metoprolol Tartrate 12.5 mg 02/28/20 12:00 03/09/20 21:38 Metoprolol FEEDTUBE 12.5 mg BID CAR Administration Midodrine 15 mg 02/04/20 16:00 03/09/20 18:51 Midodrine 5 Mg Tab PO 15 mg TID@0800,1200,1600 [facility] Administration Morphine Sulfate 2 mg 01/06/20 15:41 03/03/20 10:05 Morphine 2 Mg/1 Ml Inj IV 2 mg Q4H PRN Administration Pain, Moderate (4-6) Multi-Ingred Cream/Lotion/Oil/Oint 1 applic 02/01/20 15:52 Artificial Tears Ophth Oint OU Q4HR PRN Dry Eye(s) Nitroglycerin 0.4 mg 01/19/20 21:09 01/20/20 03:03 Nitrostat SL 0.4 mg .Q5MIN PRN Administration Chest Pain Ondansetron HCl 4 mg 01/05/20 14:37 03/10/20 07:02 Ondansetron 4 Mg/2 Ml Inj IV 4 mg Q8H PRN Administration Nausea And Vomiting Polyethylene Glycol 17 gm 12/04/19 22:00 03/09/20 21:38 Miralax 3350 PO 17 gm QHS CAR Administration Quetiapine Fumarate 300 mg 01/13/20 22:00 03/09/20 21:37 Seroquel PO 300 mg BID CAR Administration Simple Syrup 15 ml 01/09/20 12:01 Simple Syrup 15 Ml FEEDTUBE PRN PRN Hypoglycemia Simple Syrup 30 ml 01/09/20 12:01 Simple Syrup 15 Ml FEEDTUBE PRN PRN Hypoglycemia Sodium Bicarbonate 325 mg 01/09/20 12:01 03/07/20 12:56 Sodium Bicarbonate 325 Mg Tab FEEDTUBE 325 mg PRN PRN Administration For Clogged Feeding Tube Sodium Chloride 10 ml 11/24/19 10:00 03/09/20 21:39 Sodium Chloride Flush Syringe 10 Ml IV 10 ml BID CAR Administration Tamsulosin HCl 0.8 mg 12/20/19 22:00 03/09/20 21:37 Flomax PO 0.8 mg QHS CAR Administration Nutrition/Malnutrition Assess - Dietary Evaluation Nutrition/Malnutrition Findings: Nutrition Notes Start: 11/24/19 12:22 Freq: Status: Active Protocol: Document 03/09/20 11:21 AB (Rec: 03/09/20 11:26 AB [id number]) Co-Sign 03/09/20 11:21 LM Nutrition Notes Initial or Follow up Reassessment Current Diagnosis Coronary Artery Disease,Heart Failure,Respiratory Failure, Stroke,Hyperlipidemia Other Pertinent Diagnosis Partial SBO, pneu Current Diet Osmolite 1.5 at 65ml/hr Labs/Tests Na 136 BUN 25 Cr 0.6 BG 170 Pertinent Medications Reviewed Height 6 ft 2 in Weight 123.9 kg [place] Body Weight (kg) 86.36 BMI 35.0 Weight Status Obese Subjective/Other Information F/U for TF restart and tolerance. Pt TF was restarted 12/15 PM and is currently running at 35 ml/hr. Per MD, pt is having N/V and wants to change TF formula. Case management wants a cheap formula. [employer] Technician communicated that formula was changed 9 days ago and he had N/V. Pt currently on cheapest formula that meets needs. Percent of energy/protein needs met: 51%/39% Burn Absent Trauma Absent GI Symptoms None Current % PO Negligible Minimum of two criteria Yes Muscle Mass Mild Depletion (non-severe) Fluid Accumulation Mild (non-severe) Reduced Egg Crater Strength Measurably Reduced (severe) #2 Nutrition Diagnosis Malnutrition Diagnosis Progress(for reassessment Continues documentation) #1 Nutrition Diagnosis Inadequate oral intake Diagnosis Progress(for reassessment Continues documentation) Is patient on ventilator? Yes Is Patient Ambulatory and/or Out of Bed No REE-([facility]-confined to bed) 2529.060 Kcal/Kg value to use for calculation 17 Approximate Energy Requirements Using 2106 kcal/Kg Calculation Used for Recommendations Kcal/kg Additional Notes Protein needs are 173g ( greater than 2g/kg IBW) Fluid needs are 1 ml/kcal Nutrition Intervention Change Diet Order: Continue TF via PEG Nutrition Support: Osmolite 1.5 at 65 ml/hr. Flush 200 ml q4h. Kcal 2,340 Protein (gm) 98 Fluid (mL) 1,189 Goal #1 Meet at least 75% of pt's energy and protein needs via TF Goal #2 Weight maintenance Anticipated Discharge Needs: unable to determine at this time Follow-Up By: 03/11/20 Additional Comments F/U for TF rate/tolerance
[2020-03-10] MEDS: LANSOPRAZOLE 30 MG SOLUTAB FEEDTUBE SCH (10:13)
[2020-03-10] MEDS: DOCUSATE SODIUM 100 MG/10 ML ORAL LIQD FEEDTUBE SCH ×2 (10:13→21:52)
[2020-03-10] MEDS: GLYCOPYRROLATE 2 MG TAB PO SCH ×3 (10:13→21:52)
[2020-03-10] MEDS: METOPROLOL TARTRATE 25 MG TAB FEEDTUBE SCH ×2 (10:14→22:02)
[2020-03-10] MEDS: APIXABAN 5 MG TAB PO SCH ×2 (10:16→21:52)
[2020-03-10] MEDS: MIDODRINE 5 MG TAB PO SCH ×3 (10:16→18:40)
[2020-03-10] MEDS: QUEtiapine 100 MG TAB PO SCH ×2 (10:16→21:54)
[2020-03-10] MEDS: CLOPIDOGREL 75 MG TAB PO SCH (10:17)
--- NOTE | 2020-03-10 10:59 | Progress Note ---
Assessment and Plan Chest pain, resolved LHC done 01/22/20 widely patent previous LAD stent. We found mild nonobstructive atherosclerosis of the mid right coronary artery. Otherwise the rest of the coronary system was without significant atherosclerosis. LVEF 40 to 45%. There was some hypokinesis of the basal inferior wall suggestive of previous or recent infarct. ECG done 01/19/20 shows sinus rhythm with low voltage QRS and subtle ST segment elevations in the inferolateral leads that suggested possible concern for an acute injury at that time. Atrial fibrillation, rate control on digoxin and low dose metoprolol amiodarone discontinued due to liver transaminases Ischemic Cardiomyopathy re-echo this presentation reports an LVEF 40-45%. Hx of CAD Multifocal pneumonia negative COVID-19 test x 3 Chronic Respiratory failure s/p trach History of COPD Acute PE/DVT -on Eliquis Anemia Partial SBO vs ileus Conservative cardiac management. Will follow intermittently. Subjective Date of service: 03/10/20 Principal diagnosis: Ac hypoxemic resp failure; Pneumonia; PUI COVID-19; CHF; COPD; HTN Interval history: Atrial fibrillation with a well controlled ventricular rate on telemetry. Objective Vital Signs Temp Pulse Resp Resp BP Pulse Ox Pulse Ox 03/10/20 10:14 124 H 111/72 03/10/20 08:32 99 03/10/20 08:27 123 H 106/85 100 03/10/20 08:00 97.7 F 117 H 20 106/85 100 03/10/20 07:00 117 H 19 110/71 99 03/10/20 06:00 127 H 18 100/70 100 03/10/20 05:00 118 H 20 126/84 100 03/10/20 04:06 120 H 03/10/20 04:00 97.5 F L 111 H 18 107/85 98 03/10/20 03:31 102 H 107/85 100 03/10/20 03:00 103 H 16 107/85 100 03/10/20 02:00 119 H 19 109/85 98 03/10/20 01:00 118 H 20 107/89 100 03/10/20 00:30 113 H 115/63 100 100 03/10/20 00:07 119 H 03/10/20 00:00 97.6 F 115 H 16 20 115/93 99 03/09/20 23:00 133 H 21 120/91 100 03/09/20 22:00 131 H 19 122/91 100 03/09/20 21:38 124 H 113/94 03/09/20 21:00 128 H 19 127/105 99 03/09/20 20:49 134 H 127/105 100 100 03/09/20 20:00 98.3 F 130 H 22 20 127/105 100 03/09/20 19:42 124 H 23 119/98 100 03/09/20 19:20 133 H 03/09/20 19:00 115 H 24 115/86 100 03/09/20 18:50 123 H 03/09/20 18:00 122 H 17 115/86 100 03/09/20 17:00 124 H 20 107/80 100 03/09/20 16:54 113 H 113/84 99 03/09/20 16:53 100 03/09/20 16:51 99 03/09/20 16:00 97.9 F 128 H 26 H 113/84 99 03/09/20 15:00 117 H 17 113/72 99 03/09/20 14:00 114 H 19 121/71 99 03/09/20 13:00 135 H 33 H 127/67 100 03/09/20 12:00 97.4 F L 137 H 18 103/77 100 03/09/20 11:00 122 H 19 103/77 99 - Physical Examination General: Other (s/p trach) HEENT: Positive: PERRL Neck: Positive: Other (s/p trach) Cardiac: Positive: irregularly irregular Neuro: Positive: Weakness Extremities: Absent: edema - Allied health notes Allied health notes reviewed: RT
[2020-03-10] MEDS: MORPHINE 2 MG/1 ML INJ IV PRN (14:04)
[2020-03-10] MEDS: DIGOXIN 0.125 MG TAB PO SCH (18:41)
[2020-03-10] MEDS: TAMSULOSIN 0.4 MG CAP PO SCH (21:53)
[2020-03-10] MEDS: POLYETHYLENE GLYCOL 3350 17 GM POWDER PO SCH (21:54)
[2020-03-11] MEDS: INSULIN REGULAR, HUMAN 100 UNIT/ML 3ML VIAL SUB-Q SCH ×3 (05:57→22:49)
[2020-03-11] MEDS: GLYCOPYRROLATE 2 MG TAB PO SCH ×3 (08:25→22:52)
[2020-03-11] MEDS: MIDODRINE 5 MG TAB PO SCH ×3 (08:25→18:24)
--- NOTE | 2020-03-11 08:57 | Progress Note ---
Assessment and Plan Assessment and plan: -Acute on chronic hypoxemic respiratory failure; Patient has tracheostomy on vent Continue nebulizers, , trach care Wean off ventilator as tolerated Pulmonary critical following --Ischemic cardiomyopathy Cardiology is following, status post cardiac catheterization on 01/22/2020; Coronary artery disease status post PCI and stent to the LAD Continue current cardiac medications --Acute exacerbation of COPD; Patient is currently on ventilatory support Continue nebulizers --Left lower lobe PE; 12/10/2019 CTA Continue Eliquis, ventilatory support --Acute right lower extremity DVT; Patient is on Eliquis --Bilateral multifocal pneumonia/community-acquired Completed antibiotics, improved --Severe sepsis/bilateral pneumonia: Completed antibiotics COVID-19 test; 11/24/2019; negative 11/26/2019; negative 12/29/2019: Negative --Paroxysmal atrial fibrillation; Now rate controlled, Stable on amiodarone and Eliquis --Acute on chronic combined systolic and diastolic congestive heart failure Ischemic cardiomyopathy left ventricular ejection fraction 40 to 45% --H/o CAD [[facility] 12/2018 in-stent restenosis] Patient is stable on current cardiac medications --Hypertensive emergency; present on admission Reasonable blood pressures, continue current antihypertensives As needed medications --History of alcohol abuse/alcohol withdrawal; Was on CIWA protocol, now stable --Oropharyngeal dysphagia; status post PEG placement Continue PEG feeds per protocol --History of partial small bowel obstruction; resolved --Obesity; BMI 34.7 Patient needs weight reduction when medically stable --Severe protein calorie malnutrition/hypoalbuminemia Nutrition supplements, dietitian following, PEG feeds --DVT prophylaxis;Eliquis --Full CODE STATUS DC planning per case management/LTAC versus home when medically stable We will closely monitor the patient and adjust the management as needed Plan of care reviewed with the patient's nurse. The high probability of a clinically significant, sudden or life threatening deterioration of the [Respiratory, cardiovascular & neurological] system(s) required my full and direct attention, intervention and personal management. The aggregate critical care time was [32] minutes without overlap. Time includes spent on [x] Data Review and interpretation [x] Patient assessment and monitoring of vital signs [x] Documentation [x] Medication orders and management Patient is unable to wean, Multiple social issues Unable to place LTAC We will closely monitor the patient and adjust the management as needed Wean as tolerated and extubate 12/1. Awake and alert on vent. Vitals stable. 02/23. Awake and alert on vent. Requests for ice. Vitals stable 02/24. Trach to vent. Continue rate control with metoprolol and digoxin. Amiodarone discontinued due to elevated liver transaminases. Eliquis for anticoagulation of acute PE/DVT. Transferred to [facility] 02/25. Seen in [facility]. Requests for ice. RN to provide a cube of ice. Vitals stable. 02/26. No change in medical condition. Slightly tachy this AM. Will monitor. 02/27. Cardiology started him on a beta hebert. Still on vent 02/28. Discharge planning as per top tile decorator. Still on vent. Tachycardia noted. 03/01/2020; patient is tachycardic, still on the vent. Discharge management as per top tile decorator. 03/02/2020; patient is on a vent and trach. Discharge is per top tile decorator. 03/03/2012; patient is on vent and trach patient is alert and oriented. 03/04/2020; patient is on vent and trach, patient is alert. 03/05/2020; patient is on vent and trach, patient is alert. 03/06/2020 tracheostomy on vent , patient is alert, possible LTAC placement 03/08/2020 remains on ventilatory support; wean off the vent, pending LTAC placement 03/09/2020; clinically no change, tracheostomy on ventilatory support, unable to wean, awaiting LTAC placement, social issues 03/10/2020; clinically no change; patient alert and awake; 03/11/2020; patient is more alert and awake asking for some water, remains on ventilatory support, awaiting LTAC placement History Interval history: Patient is seen and examined today Clinically no change On ventilatory support Alert and awake No new complaints Vital signs reviewed Hospitalist Physical - Constitutional Vitals: Temp Pulse Resp BP Pulse Ox 97.8 F 114 H 24 108/75 100 03/11/20 03:50 03/11/20 08:47 03/11/20 08:47 03/11/20 08:47 03/11/20 08:47 General appearance: Present: no acute distress, well-nourished, other (Tracheostomy on vent) - EENT Eyes: Present: PERRL, EOM intact - Neck Neck: Present: supple - Respiratory Respiratory effort: normal, labored Respiratory: bilateral: rales - Cardiovascular Rhythm: regular Heart Sounds: Present: S1 & S2 - Extremities Extremities: no ischemia, No edema - Abdominal General gastrointestinal: soft, non-tender, non-distended - Integumentary Integumentary: Present: clear, warm - Psychiatric Psychiatric: other (Intubated on vent) - Neurologic Neurologic: other (Intubated on vent) HEART Score - HEART Score Troponin: Troponin T < 0.010 ng/mL (0.00-0.029) 01/19/20 01:35 Results - Labs CBC & Chem 7: 03/09/20 06:32 03/09/20 06:32 Labs: Laboratory Last Values WBC 6.1 K/mm3 (4.5-11.0) 03/09/20 06:32 RBC 3.98 M/mm3 (3.65-5.03) 03/09/20 06:32 Hgb 9.8 gm/dl (11.8-15.2) L 03/09/20 06:32 Hct 31.6 % (35.5-45.6) L 03/09/20 06:32 MCV 80 fl (84-94) L 03/09/20 06:32 MCH 25 pg (28-32) L 03/09/20 06:32 MCHC 31 % (32-34) L 03/09/20 06:32 RDW 23.1 % (13.2-15.2) H 03/09/20 06:32 Plt Count 200 K/mm3 (140-440) 03/09/20 06:32 Lymph % (Auto) 35.1 % (13.4-35.0) H 03/09/20 06:32 Clinch % (Auto) 11.4 % (0.0-7.3) H 03/09/20 06:32 Eos % (Auto) 2.9 % (0.0-4.3) 03/09/20 06:32 Baso % (Auto) 0.6 % (0.0-1.8) 03/09/20 06:32 Lymph # (Auto) 2.1 K/mm3 (1.2-5.4) 03/09/20 06:32 Clinch # (Auto) 0.7 K/mm3 (0.0-0.8) 03/09/20 06:32 Eos # (Auto) 0.2 K/mm3 (0.0-0.4) 03/09/20 06:32 Baso # (Auto) 0.0 K/mm3 (0.0-0.1) 03/09/20 06:32 Add Manual Diff Complete 02/15/20 06:59 Total Counted 100 02/15/20 06:59 Seg Neutrophils % 50.0 % (40.0-70.0) 03/09/20 06:32 Seg Neuts % (Manual) 58.0 % (40.0-70.0) 02/15/20 06:59 Band Neutrophils % 0 % 02/15/20 06:59 Lymphocytes % (Manual) 34.0 % (13.4-35.0) 02/15/20 06:59 Reactive Lymphs % (Man) 1.0 % 02/15/20 06:59 Monocytes % (Manual) 4.0 % (0.0-7.3) 02/15/20 06:59 Eosinophils % (Manual) 0 % (0.0-4.3) 02/15/20 06:59 Basophils % (Manual) 2.0 % (0.0-1.8) H 02/15/20 06:59 Metamyelocytes % 1.0 % 02/15/20 06:59 Myelocytes % 0 % 02/15/20 06:59 Promyelocytes % 0 % 02/15/20 06:59 Blast Cells % 0 % 02/15/20 06:59 Nucleated RBC % 1.0 % (0.0-0.9) H 02/15/20 06:59 Seg Neutrophils # 3.0 K/mm3 (1.8-7.7) 03/09/20 06:32 Seg Neutrophils # Man 5.9 K/mm3 (1.8-7.7) 02/15/20 06:59 Band Neutrophils # 0.0 K/mm3 02/15/20 06:59 Lymphocytes # (Manual) 3.5 K/mm3 (1.2-5.4) 02/15/20 06:59 Abs React Lymphs (Man) 0.1 K/mm3 02/15/20 06:59 Monocytes # (Manual) 0.4 K/mm3 (0.0-0.8) 02/15/20 06:59 Eosinophils # (Manual) 0.0 K/mm3 (0.0-0.4) 02/15/20 06:59 Basophils # (Manual) 0.2 K/mm3 (0.0-0.1) H 02/15/20 06:59 Metamyelocytes # 0.1 K/mm3 02/15/20 06:59 Myelocytes # 0.0 K/mm3 02/15/20 06:59 Promyelocytes # 0.0 K/mm3 02/15/20 06:59 Blast Cells # 0.0 K/mm3 02/15/20 06:59 WBC Morphology Not Reportable 02/15/20 06:59 Hypersegmented Neuts Not Reportable 02/15/20 06:59 Hyposegmented Neuts Not Reportable 02/15/20 06:59 Hypogranular Neuts Not Reportable 02/15/20 06:59 Smudge Cells Not Reportable 02/15/20 06:59 Toxic Granulation Not Reportable 02/15/20 06:59 Toxic Vacuolation Not Reportable 02/15/20 06:59 Dohle Bodies Not Reportable 02/15/20 06:59 Pelger-Huet Anomaly Not Reportable 02/15/20 06:59 Hector Rods Not Reportable 02/15/20 06:59 Platelet Estimate Consistent w auto 02/15/20 06:59 Clumped Platelets Not Reportable 02/15/20 06:59 Plt Clumps, EDTA Not Reportable 02/15/20 06:59 Large Platelets Not Reportable 02/15/20 06:59 Giant Platelets Not Reportable 02/15/20 06:59 Platelet Satelliting Not Reportable 02/15/20 06:59 Plt Morphology Comment Giant platelets 02/15/20 06:59 RBC Morphology Not Reportable 02/15/20 06:59 Dimorphic RBCs Not Reportable 02/15/20 06:59 Polychromasia Not Reportable 02/15/20 06:59 Hypochromasia 1+ 02/15/20 06:59 Poikilocytosis Few 02/15/20 06:59 Anisocytosis 1+ 02/15/20 06:59 Microcytosis Not Reportable 02/15/20 06:59 Macrocytosis Not Reportable 02/15/20 06:59 Spherocytes Not Reportable 02/15/20 06:59 Pappenheimer Bodies Not Reportable 02/15/20 06:59 Sickle Cells Not Reportable 02/15/20 06:59 Target Cells 1+ 02/15/20 06:59 Tear Drop Cells Few 02/15/20 06:59 Ovalocytes Not Reportable 02/15/20 06:59 Helmet Cells Not Reportable 02/15/20 06:59 [place] Bodies Not Reportable 02/15/20 06:59 [place] Rings Not Reportable 02/15/20 06:59 Oc Cells Not Reportable 02/15/20 06:59 Bite Cells Not Reportable 02/15/20 06:59 Crenated Cell Not Reportable 02/15/20 06:59 Elliptocytes Few 02/15/20 06:59 Acanthocytes (Spur) Not Reportable 02/15/20 06:59 Rouleaux Not Reportable 02/15/20 06:59 Hemoglobin C Crystals Not Reportable 02/15/20 06:59 Schistocytes Not Reportable 02/15/20 06:59 Malaria parasites Not Reportable 02/15/20 06:59 Clifford Bodies Not Reportable 02/15/20 06:59 Hem Pathologist Commnt No 02/15/20 06:59 PT 27.0 Sec. (12.2-14.9) H 02/07/20 15:03 INR 2.46 (0.87-1.13) H 02/07/20 15:03 APTT 31.5 Sec. (24.2-36.6) 01/22/20 09:58 Heparin Anti-Xa Level 1.34 U.I./ml (0.3-0.7) H 01/22/20 04:45 ABG pH 7.461 pH Units (7.350-7.450) H 02/20/20 06:45 POC ABG pCO2 34.8 mmHg (32.0-48.0) 02/11/20 14:11 ABG pCO2 47.8 mm Hg 02/20/20 06:45 POC ABG pO2 77.7 mmHg (83-108) L 02/11/20 14:11 ABG pO2 88.7 mm Hg (80.0-90.0) 02/20/20 06:45 POC ABG HCO3 26.7 02/11/20 14:11 ABG HCO3 33.3 mmol/L (20.0-26.0) H 02/20/20 06:45 ABG O2 Saturation 97.2 % (95.0-99.0) 02/20/20 06:45 ABG O2 Content 13.3 (0.0-44) 02/20/20 06:45 POC ABG Base Excess 3.6 02/11/20 14:11 ABG Base Excess 8.4 mmol/L (-2.0-3.0) H 02/20/20 06:45 ABG Hemoglobin 10.0 gm/dl (14.0-18.0) L 02/20/20 06:45 ABG Oxyhemoglobin 84 (94-98) L 12/22/19 03:22 ABG Carboxyhemoglobin 2.9 % (0.0-5.0) 02/20/20 06:45 ABG Methemoglobin 0.4 % (0.0-1.5) 02/20/20 06:45 ABG Sodium 144.7 mmol/L (136.0-145.0) 02/11/20 14:11 ABG Potassium 3.5 mmol/L (3.40-4.50) 02/11/20 14:11 ABG Chloride 108.0 mmol/L (98-107) H 02/11/20 14:11 ABG Glucose 151 mg/dL (65-95) H 02/11/20 14:11 Oxyhemoglobin 94.1 % (95.0-99.0) L 02/20/20 06:45 Carboxyhemoglobin 0.7 (0.5-1.5) 12/22/19 03:22 FiO2 30 % 02/20/20 06:45 Sodium 136 mmol/L (137-145) L 03/09/20 06:32 Potassium 4.2 mmol/L (3.6-5.0) 03/09/20 06:32 Chloride 98.9 mmol/L (98-107) 03/09/20 06:32 Carbon Dioxide 29 mmol/L (22-30) 03/09/20 06:32 Anion Gap 12 mmol/L 03/09/20 06:32 BUN 25 mg/dL (9-20) H 03/09/20 06:32 Creatinine 0.6 mg/dL (0.8-1.3) L 03/09/20 06:32 Estimated GFR > 60 ml/min 03/09/20 06:32 BUN/Creatinine Ratio 42 % 03/09/20 06:32 Glucose 170 mg/dL (75-100) H 03/09/20 06:32 POC Glucose 181 mg/dL (70-105) H 03/11/20 05:55 Lactic Acid 1.60 mmol/L (0.7-2.0) 02/03/20 12:49 Calcium 8.9 mg/dL (8.4-10.2) 03/09/20 06:32 Ferritin 84.4 ng/mL (30.0-300.0) 11/24/19 04:53 Phosphorus 4.10 mg/dL (2.5-4.5) 01/31/20 19:24 Magnesium 2.40 mg/dL (1.7-2.3) H 02/10/20 07:40 Total Bilirubin 1.30 mg/dL (0.1-1.2) H 02/08/20 19:00 Direct Bilirubin 0.9 mg/dL (0-0.2) H 02/08/20 19:00 Indirect Bilirubin 0.4 mg/dL 02/08/20 19:00 Total Creatine Kinase 141 units/L (55-170) 11/24/19 02:53 CK-MB (CK-2) 4.3 ng/mL (0.0-4.0) H 11/24/19 02:53 AST 309 units/L (5-40) H 02/08/20 19:00 ALT 650 units/L (7-56) H 02/08/20 19:00 CK-MB (CK-2) Rel Index 3.0 (0-4) 11/24/19 02:53 Alkaline Phosphatase 109 units/L (35-129) 02/08/20 19:00 C-Reactive Protein 8.50 mg/dL (0.00-1.30) H 12/01/19 12:16 Ammonia 35.0 umol/L (25-60) 02/03/20 12:49 Lactate Dehydrogenase 228 units/L (91-180) H 12/19/19 04:45 Troponin T < 0.010 ng/mL (0.00-0.029) 01/19/20 01:35 NT-Pro-B Natriuret Pep 3866 pg/mL (0-900) H 01/01/20 10:40 Total Protein 6.2 g/dL (6.3-8.2) L 02/08/20 19:00 Albumin 2.7 g/dL (3.9-5) L 02/08/20 19:00 Albumin/Globulin Ratio 0.8 % 02/08/20 19:00 Procalcitonin 0.44 ng/mL (<0.15) 02/03/20 12:49 Arterial Blood Glucose 151 mg/dL (65-95) H 02/11/20 14:11 Arterial Blood Ionized Calcium 4.7 mg/dL (4.6-5.3) 02/11/20 14:11 Urine Color Cecy (Yellow) 02/26/20 07:50 Urine Turbidity Clear (Clear) 02/26/20 07:50 Urine pH 5.0 (5.0-7.0) 02/26/20 07:50 Ur Specific Mobile 1.025 (1.003-1.030) 02/26/20 07:50 Urine Protein 30 mg/dl mg/dL (Negative) 02/26/20 07:50 Urine Glucose (UA) Neg mg/dL (Negative) 02/26/20 07:50 Urine Ketones Neg mg/dL (Negative) 02/26/20 07:50 Urine Blood Sm (Negative) 02/26/20 07:50 Urine Nitrite Neg (Negative) 02/26/20 07:50 Urine Bilirubin Neg (Negative) 02/26/20 07:50 Urine Urobilinogen 4.0 mg/dL (<2.0) 02/26/20 07:50 Ur Leukocyte Esterase Lg (Negative) 02/26/20 07:50 Urine WBC (Auto) > 182.0 /HPF (0.0-6.0) H 02/26/20 07:50 Urine RBC (Auto) 84.0 /HPF (0.0-6.0) 02/26/20 07:50 U Epithel Cells (Auto) 2.0 /HPF (0-13.0) 12/31/19 18:04 Urine Bacteria (Auto) 4+ /HPF (Negative) 02/26/20 07:50 Urine WBC Clumps 2+ /HPF 02/26/20 07:50 Urine Mucus 1+ /HPF 02/26/20 07:50 Urine Creatinine 57.4 mg/dL (0.1-20.0) H 01/31/20 Unknown Urine Sodium 59 mmol/L 01/31/20 Unknown Vancomycin Trough 14.2 ug/mL (5.0-20.0) 12/13/19 15:01 Coronavirus (PCR) Negative (Negative) 12/29/19 10:07 Hepatitis A IgM Ab Non-reactive (NonReactive) 02/05/20 06:37 Hep Bs Antigen Non-reactive (Negative) 02/05/20 06:37 Hep B Core IgM Ab Non-reactive (NonReactive) 02/05/20 06:37 Hepatitis C Antibody Non-reactive (NonReactive) 02/05/20 06:37 Blood Type O POSITIVE 01/21/20 13:00 Antibody Screen Negative 01/21/20 13:00 - Diagnostic Impressions Diagnostic Impressions: Echocardiogram 11/29/19 07:37 Transthoracic Echocardiogram Indication: CHF BP: 116/72 HR: 33 Conclusions *The study is technically limited due to poor acoustic windows. *Global left ventricular systolic function is normal. *The estimated ejection fraction is 50-55%. *Mild concentric left ventricular hypertrophy is observed. *There is trace of mitral regurgitation. *There is mild tricuspid regurgitation. Findings Procedure Info: The study quality is poor. The study is technically limited due to poor acoustic windows. The study is technically limited due to patient body habitus. Left Ventricle: The left ventricular chamber size is normal. Mild concentric left ventricular hypertrophy is observed. Global left ventricular systolic function is normal. The estimated ejection fraction is 50-55%. Left Atrium: The left atrial chamber size is normal. Right Ventricle: The right ventricular cavity size is normal. Right Atrium: The right atrial cavity size is normal. Aortic Valve: The aortic valve leaflets are moderately thickened. There is trace of aortic regurgitation. There is no evidence of aortic stenosis. Mitral Valve: The mitral valve leaflets are mildly thickened. There is trace of mitral regurgitation. There is no evidence of mitral stenosis. Tricuspid Valve: There is mild tricuspid regurgitation. No pulmonary hypertension is noted. Pulmonic Valve: There is trace pulmonic regurgitation. Pericardium: There is no pericardial effusion. Aorta: There is no dilatation of the aortic root. Venous: The inferior vena cava appears normal in size. Contrast: Definity was used to optimize study. Intravenous contrast was used to enhance endocardial border definition. Measurements Chambers 2D Name Value Normal Range Ao root diameter (2D) 3.4 cm (2 - 3.7) Aortic Valve Name Value Normal Range AV Vmax 0.98 m/sec - AV VTI 16.76 cm - AV peak gradient 3.83 mmHg - AV mean gradient 2.57 mmHg - LVOT diameter 3.11 cm - LVOT Vmax 0.68 m/sec - LVOT VTI 11.52 cm - LVOT peak gradient 1.84 mmHg - LVOT mean gradient 1.27 mmHg - SV LVOT 87.31 ml - MALOU (continuity Vmax) 5.24 cm2 - MALOU (continuity VTI) 5.21 cm2 - Tricuspid Valve Name Value Normal Range IVC diameter 2.24 cm (1.2 - 2.3) Hoffman/IV: Voiding Method Indwelling Catheter IV Catheter Type [Left INT / Saline Lock Antecubital] IV Catheter Type [Right INT / Saline Lock Forearm] IV Catheter Type [Right Hand] Peripheral IV IV Catheter Type [Right Upper INT / Saline Lock arm] IV Catheter Type [Left Upper Mid-line arm] IV Catheter Type [Left Forearm Peripheral IV ] IV Catheter Type [Left Hand] INT / Saline Lock IV Catheter Type [Left Wrist] INT / Saline Lock IV Catheter Type [Right Peripheral IV Antecubital] Active Medications - Current Medications Current Medications: Generic Name Dose Route Start Last Admin Trade Name Freq PRN Reason Stop Dose Admin Lipase/Protease/Amylase 1 each 01/09/20 12:01 03/07/20 12:56 Lipase 10,500/Protease 25,000/Amylase 43,750 (Units) Dr Lauren FEEDTUBE 1 each PRN PRN Administration For Clogged Feeding Tube Apixaban 5 mg 01/22/20 22:00 03/10/20 21:52 Eliquis PO 5 mg Q12HR CAR Administration Protocol Atorvastatin Calcium 40 mg 01/20/20 22:00 03/10/20 21:53 Lipitor PO 40 mg QHS CAR Administration Clopidogrel Bisulfate 75 mg 01/21/20 06:00 03/10/20 10:17 Plavix PO 75 mg QDAY CAR Administration Dextrose 50 ml 01/31/20 18:51 02/05/20 00:56 D50w (25gm) Syringe IV 50 ml Q30MIN PRN Administration Hypoglycemia Protocol Digoxin 0.125 mg 02/25/20 17:00 03/10/20 18:41 Lanoxin PO 0.125 mg DAILY@1700 PENDING SALE TO [facility] Administration Docusate Sodium 100 mg 02/22/20 10:00 03/10/20 21:52 Colace FEEDTUBE 100 mg BID CAR Administration Glycopyrrolate 2 mg 02/24/20 21:00 03/11/20 08:25 Glycopyrrolate PO 2 mg TID CAR Administration Haloperidol Lactate 5 mg 02/10/20 14:20 03/03/20 02:25 Haloperidol Lactate 5 Mg/1 Ml Inj IV 5 mg Q6H PRN Administration Agitation Hydrophilic Ointment 1 applic 01/17/20 15:26 02/24/20 23:20 Vaseline Lip Therapy TP 1 applic DIRECT PRN Administration Dry Lips Insulin Human Regular 0 unit 02/01/20 18:00 03/11/20 05:57 Humulin R SUB-Q Not Given Q6H PENDING SALE TO [facility] Protocol Lansoprazole 30 mg 02/05/20 16:00 03/10/20 10:13 Lansoprazole 30 Mg Solutab FEEDTUBE 30 mg QDAY PENDING SALE TO [facility] Administration Metoprolol Tartrate 5 mg 01/11/20 08:00 03/03/20 01:46 Metoprolol Tartrate 5 Mg/5 Ml Inj IV 5 mg Q6H PRN Administration SEE INSTRUCTIONS Metoprolol Tartrate 12.5 mg 02/28/20 12:00 03/10/20 22:02 Metoprolol FEEDTUBE 12.5 mg BID CAR Administration Midodrine 15 mg 02/04/20 16:00 03/11/20 08:25 Midodrine 5 Mg Tab PO 15 mg TID@0800,1200,1600 PENDING SALE TO [facility] Administration Morphine Sulfate 2 mg 01/06/20 15:41 03/10/20 14:04 Morphine 2 Mg/1 Ml Inj IV 2 mg Q4H PRN Administration Pain, Moderate (4-6) Multi-Ingred Cream/Lotion/Oil/Oint 1 applic 02/01/20 15:52 Artificial Tears Ophth Oint OU Q4HR PRN Dry Eye(s) Nitroglycerin 0.4 mg 01/19/20 21:09 01/20/20 03:03 Nitrostat SL 0.4 mg .Q5MIN PRN Administration Chest Pain Ondansetron HCl 4 mg 01/05/20 14:37 03/10/20 07:02 Ondansetron 4 Mg/2 Ml Inj IV 4 mg Q8H PRN Administration Nausea And Vomiting Polyethylene Glycol 17 gm 12/04/19 22:00 03/10/20 21:54 Miralax 3350 PO 17 gm QHS CAR Administration Quetiapine Fumarate 300 mg 01/13/20 22:00 03/10/20 21:54 Seroquel PO 300 mg BID CAR Administration Simple Syrup 15 ml 01/09/20 12:01 Simple Syrup 15 Ml FEEDTUBE PRN PRN Hypoglycemia Simple Syrup 30 ml 01/09/20 12:01 Simple Syrup 15 Ml FEEDTUBE PRN PRN Hypoglycemia Sodium Bicarbonate 325 mg 01/09/20 12:01 03/07/20 12:56 Sodium Bicarbonate 325 Mg Tab FEEDTUBE 325 mg PRN PRN Administration For Clogged Feeding Tube Sodium Chloride 10 ml 11/24/19 10:00 03/10/20 21:56 Sodium Chloride Flush Syringe 10 Ml IV 10 ml BID CAR Administration Tamsulosin HCl 0.8 mg 12/20/19 22:00 03/10/20 21:53 Flomax PO 0.8 mg QHS CAR Administration Nutrition/Malnutrition Assess - Dietary Evaluation Nutrition/Malnutrition Findings: Nutrition Notes Start: 11/24/19 12:22 Freq: Status: Active Protocol: Document 03/09/20 11:21 AB (Rec: 03/09/20 11:26 AB [id number]) Co-Sign 03/09/20 11:21 LM Nutrition Notes Initial or Follow up Reassessment Current Diagnosis Coronary Artery Disease,Heart Failure,Respiratory Failure, Stroke,Hyperlipidemia Other Pertinent Diagnosis Partial SBO, pneu Current Diet Osmolite 1.5 at 65ml/hr Labs/Tests Na 136 BUN 25 Cr 0.6 BG 170 Pertinent Medications Reviewed Height 6 ft 2 in Weight 123.9 kg [place] Body Weight (kg) 86.36 BMI 35.0 Weight Status Obese Subjective/Other Information F/U for TF restart and tolerance. Pt TF was restarted 12/15 PM and is currently running at 35 ml/hr. Per MD, pt is having N/V and wants to change TF formula. Case management wants a cheap formula. Taximeter Repairer communicated that formula was changed 9 days ago and he had N/V. Pt currently on cheapest formula that meets needs. Percent of energy/protein needs met: 51%/39% Burn Absent Trauma Absent GI Symptoms None Current % PO Negligible Minimum of two criteria Yes Muscle Mass Mild Depletion (non-severe) Fluid Accumulation Mild (non-severe) Reduced Community Organizer Strength Measurably Reduced (severe) #2 Nutrition Diagnosis Malnutrition Diagnosis Progress(for reassessment Continues documentation) #1 Nutrition Diagnosis Inadequate oral intake Diagnosis Progress(for reassessment Continues documentation) Is patient on ventilator? Yes Is Patient Ambulatory and/or Out of Bed No REE-([facility]-confined to bed) 2529.060 Kcal/Kg value to use for calculation 17 Approximate Energy Requirements Using 2106 kcal/Kg Calculation Used for Recommendations Kcal/kg Additional Notes Protein needs are 173g ( greater than 2g/kg IBW) Fluid needs are 1 ml/kcal Nutrition Intervention Change Diet Order: Continue TF via PEG Nutrition Support: Osmolite 1.5 at 65 ml/hr. Flush 200 ml q4h. Kcal 2,340 Protein (gm) 98 Fluid (mL) 1,189 Goal #1 Meet at least 75% of pt's energy and protein needs via TF Goal #2 Weight maintenance Anticipated Discharge Needs: unable to determine at this time Follow-Up By: 03/11/20 Additional Comments F/U for TF rate/tolerance
[2020-03-11] MEDS: APIXABAN 5 MG TAB PO SCH ×2 (10:41→22:53)
[2020-03-11] MEDS: CLOPIDOGREL 75 MG TAB PO SCH (10:41)
[2020-03-11] MEDS: LANSOPRAZOLE 30 MG SOLUTAB FEEDTUBE SCH (10:41)
[2020-03-11] MEDS: METOPROLOL TARTRATE 25 MG TAB FEEDTUBE SCH ×2 (10:41→22:54)
[2020-03-11] MEDS: ONDANSETRON 4 MG/2 ML INJ IV PRN (10:42)
[2020-03-11] MEDS: QUEtiapine 100 MG TAB PO SCH ×2 (10:42→22:55)
[2020-03-11] MEDS: MORPHINE 2 MG/1 ML INJ IV PRN (10:42)
[2020-03-11] MEDS: DOCUSATE SODIUM 100 MG/10 ML ORAL LIQD FEEDTUBE SCH ×2 (10:44→22:53)
[2020-03-11] MEDS ORDERED: FUROSEMIDE 40 MG/4 ML INJ IV ONE (11:00)
--- NOTE | 2020-03-11 13:13 | Progress Note ---
Assessment and Plan Acute hypoxemic respiratory failure Bilateral pneumonia, community acquired. Acute LLL branch P.E. Acute DVT Person under investigation for COVID-19 infection. Acute congestive heart failure exacerbation. History of cerebrovascular accident. Acute chronic obstructive pulmonary disease exacerbation. Hypertension and hypertensive urgency at presentation. History of arthritis. Leukocytosis. Lactic acidosis. Oropharyngeal dysphagia -continue daily SATs and SBT assessment as tolerated -Not tolerating weaning well -intermittent diuresis while monitoring renal function and hemodynamics -continue prn haldol for agitation to avoid hypoventilation -needs to stay awake during the day and sleep at night, denominational of sleep- wake cycle -tube feedings on hold, will be resumed at 30cc, with anti-emetic/pro motility agents - continue Flomax - Midodrine for blood pressure - prn mucomyst nebs re: secretions - continue full anticoagulation with Apixaban - continue Seroquel for anxiolysis / delirium - continue to wean oxygen for O2 sats > 92% - continue bronchodilators with routine trach care and pulmonary hygiene per RT - continue Robinul & Scopolamine for secretion control - VAP bundle addressed (Aspiration precautions, HOB >40) - continue to wean per pulmonary driven protocols - continue prn analgesia per CPOT score - Avoid delirium (no benzodiazepines if they can be avoided) - Maintain sleep-wake cycle - continue accuchecks with glycemic control per SSI for target blood glucose goal of 140-180 mg/dL while critically ill; Avoid hypoglycemia - continue stress ulcer prophylaxis with Famotidine - continue mobility protocols for pressure ulcer prevention - continue fall precautions - continue wound care management per RN / WCT - Supportive transfusions to keep HgB>7g/dL - Continue to monitor neurologic function - Continue all supportive care ........ re-evaluate in am & prn CONDITION: CRITICAL PROGNOSIS: GUARDED CODE STATUS: FULL CODE Subjective Date of service: 03/11/20 Principal diagnosis: Ac hypoxemic resp failure; Pneumonia; PUI COVID-19; CHF; COPD; HTN Interval history: Patient is seen today for: Acute hypoxemic respiratory failure; Adan. Pneumonia (CAP); PUI COVID-19 infection; AE-CHF; AE-COPD; H/O CVA; HTN; PE, DVT Seen and examined at bedside; 24 hour events reviewed; nursing and respiratory care staff consulted; no adverse overnight events reported to me; resting peacefully in bed; s/p trach on full support, sleeping ,tubes on hold for complains of nausea Vent on full support. Per RT when he was placed on PSV, he stated that he could not breathe, so was placed back on full support Size#6 Shiley, Mouths words to make needs known, "Tired" He drifts back to sleep - apparently per nursing staff he is up all night and sleeps all day Objective Vital Signs - 12hr 03/11/20 03/11/20 03/11/20 02:00 03:00 03:50 Temperature 97.8 F Pulse Rate 122 H 115 H Pulse Rate [ From Monitor] Respiratory 25 H 19 Rate Blood Pressure 107/85 111/79 O2 Sat by Pulse 96 96 Oximetry 03/11/20 03/11/20 03/11/20 04:00 04:51 05:00 Temperature Pulse Rate 113 H 122 H 108 H Pulse Rate [ 114 H From Monitor] Respiratory 22 19 Rate Blood Pressure 116/67 116/67 116/70 O2 Sat by Pulse 97 98 97 Oximetry 03/11/20 03/11/20 03/11/20 06:00 07:00 08:00 Temperature 97.5 F L Pulse Rate 111 H 99 H 108 H Pulse Rate [ From Monitor] Respiratory 21 17 17 Rate Blood Pressure 100/67 103/73 108/75 O2 Sat by Pulse 96 98 97 Oximetry 03/11/20 03/11/20 03/11/20 08:36 08:47 09:00 Temperature Pulse Rate 124 H 114 H 108 H Pulse Rate [ From Monitor] Respiratory 24 18 Rate Blood Pressure 108/75 108/75 100/76 O2 Sat by Pulse 99 100 99 Oximetry 03/11/20 03/11/20 03/11/20 10:00 10:41 11:00 Temperature Pulse Rate 100 H 109 H 103 H Pulse Rate [ From Monitor] Respiratory 15 18 Rate Blood Pressure 107/72 97/70 O2 Sat by Pulse 98 98 Oximetry 03/11/20 03/11/20 03/11/20 12:00 12:12 13:00 Temperature 98.0 F Pulse Rate 109 H 108 H 108 H Pulse Rate [ From Monitor] Respiratory 22 20 21 Rate Blood Pressure 97/70 113/71 94/72 O2 Sat by Pulse 93 97 Oximetry Constitutional: no acute distress, asleep, other (Patient is resting on mechanical ventilation, awake and makes needs know by mouthing words and phonating around trach) Eyes: non-icteric ENT: oropharynx moist, other (+ midline tracheostomy) Neck: supple, no JVD Effort: mildly labored Ascultation: Bilateral: clear, diminished breath sounds, rhonchi (scant), other (mild tracheal secretions ) Percussion: Bilateral: not dull Cardiovascular: irregular rhythm Gastrointestinal: normoactive bowel sounds, soft, non-tender, non-distended, other (protuberant; PEG in place) Integumentary: normal Extremities: no cyanosis, pulses normal, no ischemia or petechiae, edema (bilateral lower extemities) Neurologic: non-focal exam (moves extremities), pupils equal and round, other (Patient sleeping.) Psychiatric: other (sleeping but easily rousable) CBC and BMP: 03/09/20 06:32 03/09/20 06:32 ABG, PT/INR, D-dimer: ABG ABG pH 7.461 pH Units (7.350-7.450) H 02/20/20 06:45 POC ABG pCO2 34.8 mmHg (32.0-48.0) 02/11/20 14:11 ABG pCO2 47.8 mm Hg 02/20/20 06:45 POC ABG pO2 77.7 mmHg (83-108) L 02/11/20 14:11 ABG pO2 88.7 mm Hg (80.0-90.0) 02/20/20 06:45 POC ABG HCO3 26.7 02/11/20 14:11 ABG O2 Saturation 97.2 % (95.0-99.0) 02/20/20 06:45 PT/INR, D-dimer PT 27.0 Sec. (12.2-14.9) H 02/07/20 15:03 INR 2.46 (0.87-1.13) H 02/07/20 15:03 Abnormal lab findings: Abnormal Labs 11/24/19 11/24/19 11/24/19 02:53 02:53 03:45 WBC 14.3 H RBC Hgb Hct MCHC RDW 17.2 H MCV MCH Lymph % (Auto) [place] % (Auto) [place] # Eos # Lymph # (Auto) [place] # (Auto) Eos # (Auto) Seg Neutrophils % Seg Neuts % (Manual) Baso # (Auto) Lymphocytes % (Manual) Monocytes % (Manual) Eosinophils % (Manual) Basophils % (Manual) Seg Neutrophils # Seg Neutrophils # Man 8.3 H Lymphocytes # (Manual) Monocytes # (Manual) 0.9 H Eosinophils # (Manual) Nucleated RBC % Basophils # (Manual) PT INR APTT Heparin Anti-Xa Level ABG pH 7.313 L POC ABG pO2 ABG pO2 102.8 H ABG HCO3 ABG O2 Saturation ABG Base Excess -2.9 L POC ABG pCO2 ABG Hemoglobin ABG Oxyhemoglobin ABG Chloride ABG Glucose Oxyhemoglobin 93.9 L Sodium Potassium Chloride Carbon Dioxide BUN Creatinine Glucose 195 H POC Glucose Lactic Acid Calcium Phosphorus Magnesium AST ALT Lactate Dehydrogenase Total Bilirubin Direct Bilirubin CK-MB (CK-2) 4.3 H C-Reactive Protein NT-Pro-B Natriuret Pep 1181 H Total Protein Albumin Arterial Blood Glucose Urine WBC (Auto) Urine Creatinine 11/24/19 11/24/19 11/24/19 04:53 04:53 10:37 WBC RBC Hgb Hct MCHC RDW MCV MCH Lymph % (Auto) [place] % (Auto) [place] # Eos # Lymph # (Auto) [place] # (Auto) Eos # (Auto) Seg Neutrophils % Seg Neuts % (Manual) Baso # (Auto) Lymphocytes % (Manual) Monocytes % (Manual) Eosinophils % (Manual) Basophils % (Manual) Seg Neutrophils # Seg Neutrophils # Man Lymphocytes # (Manual) Monocytes # (Manual) Eosinophils # (Manual) Nucleated RBC % Basophils # (Manual) PT INR APTT Heparin Anti-Xa Level ABG pH POC ABG pO2 ABG pO2 ABG HCO3 ABG O2 Saturation ABG Base Excess POC ABG pCO2 ABG Hemoglobin ABG Oxyhemoglobin ABG Chloride ABG Glucose Oxyhemoglobin Sodium Potassium Chloride Carbon Dioxide BUN Creatinine Glucose 162 H POC Glucose Lactic Acid 2.40 H* 2.50 H* Calcium Phosphorus Magnesium AST ALT Lactate Dehydrogenase 240 H Total Bilirubin Direct Bilirubin CK-MB (CK-2) C-Reactive Protein NT-Pro-B Natriuret Pep Total Protein Albumin Arterial Blood Glucose Urine WBC (Auto) Urine Creatinine 11/24/19 11/24/19 11/24/19 12:21 14:50 19:54 WBC RBC Hgb Hct MCHC RDW MCV MCH Lymph % (Auto) [place] % (Auto) [place] # Eos # Lymph # (Auto) [place] # (Auto) Eos # (Auto) Seg Neutrophils % Seg Neuts % (Manual) Baso # (Auto) Lymphocytes % (Manual) Monocytes % (Manual) Eosinophils % (Manual) Basophils % (Manual) Seg Neutrophils # Seg Neutrophils # Man Lymphocytes # (Manual) Monocytes # (Manual) Eosinophils # (Manual) Nucleated RBC % Basophils # (Manual) PT INR APTT Heparin Anti-Xa Level ABG pH POC ABG pO2 ABG pO2 ABG HCO3 ABG O2 Saturation ABG Base Excess POC ABG pCO2 ABG Hemoglobin ABG Oxyhemoglobin ABG Chloride ABG Glucose Oxyhemoglobin Sodium Potassium Chloride Carbon Dioxide BUN Creatinine Glucose POC Glucose 145 H 143 H 124 H Lactic Acid Calcium Phosphorus Magnesium AST ALT Lactate Dehydrogenase Total Bilirubin Direct Bilirubin CK-MB (CK-2) C-Reactive Protein NT-Pro-B Natriuret Pep Total Protein Albumin Arterial Blood Glucose Urine WBC (Auto) Urine Creatinine 11/25/19 11/25/19 11/25/19 00:18 03:18 05:11 WBC 13.7 H RBC Hgb Hct MCHC RDW 17.1 H MCV MCH Lymph % (Auto) 10.8 L [place] % (Auto) 8.7 H [place] # 1.2 H Eos # Lymph # (Auto) [place] # (Auto) Eos # (Auto) Seg Neutrophils % 80.2 H Seg Neuts % (Manual) Baso # (Auto) Lymphocytes % (Manual) Monocytes % (Manual) Eosinophils % (Manual) Basophils % (Manual) Seg Neutrophils # 11.0 H Seg Neutrophils # Man Lymphocytes # (Manual) Monocytes # (Manual) Eosinophils # (Manual) Nucleated RBC % Basophils # (Manual) PT INR APTT Heparin Anti-Xa Level ABG pH 7.333 L POC ABG pO2 ABG pO2 61.2 L ABG HCO3 ABG O2 Saturation 90.2 L ABG Base Excess POC ABG pCO2 ABG Hemoglobin 13.7 L ABG Oxyhemoglobin ABG Chloride ABG Glucose Oxyhemoglobin 88.2 L Sodium Potassium Chloride Carbon Dioxide BUN Creatinine Glucose POC Glucose 109 H Lactic Acid Calcium Phosphorus Magnesium AST ALT Lactate Dehydrogenase Total Bilirubin Direct Bilirubin CK-MB (CK-2) C-Reactive Protein NT-Pro-B Natriuret Pep Total Protein Albumin Arterial Blood Glucose Urine WBC (Auto) Urine Creatinine 11/25/19 11/25/19 11/26/19 05:11 11:40 03:12 WBC RBC Hgb Hct MCHC RDW MCV MCH Lymph % (Auto) [place] % (Auto) [place] # Eos # Lymph # (Auto) [place] # (Auto) Eos # (Auto) Seg Neutrophils % Seg Neuts % (Manual) Baso # (Auto) Lymphocytes % (Manual) Monocytes % (Manual) Eosinophils % (Manual) Basophils % (Manual) Seg Neutrophils # Seg Neutrophils # Man Lymphocytes # (Manual) Monocytes # (Manual) Eosinophils # (Manual) Nucleated RBC % Basophils # (Manual) PT INR APTT Heparin Anti-Xa Level ABG pH POC ABG pO2 ABG pO2 155.1 H ABG HCO3 27.8 H ABG O2 Saturation ABG Base Excess POC ABG pCO2 ABG Hemoglobin 12.2 L ABG Oxyhemoglobin ABG Chloride ABG Glucose Oxyhemoglobin Sodium Potassium Chloride Carbon Dioxide BUN 23 H Creatinine Glucose 110 H POC Glucose 108 H Lactic Acid Calcium Phosphorus Magnesium AST ALT Lactate Dehydrogenase Total Bilirubin Direct Bilirubin CK-MB (CK-2) C-Reactive Protein NT-Pro-B Natriuret Pep Total Protein Albumin Arterial Blood Glucose Urine WBC (Auto) Urine Creatinine 11/26/19 11/26/19 11/26/19 06:17 10:43 10:43 WBC 11.4 H RBC Hgb Hct MCHC RDW 17.1 H MCV MCH Lymph % (Auto) [place] % (Auto) [place] # Eos # Lymph # (Auto) [place] # (Auto) Eos # (Auto) Seg Neutrophils % Seg Neuts % (Manual) Baso # (Auto) Lymphocytes % (Manual) Monocytes % (Manual) Eosinophils % (Manual) Basophils % (Manual) Seg Neutrophils # Seg Neutrophils # Man Lymphocytes # (Manual) Monocytes # (Manual) Eosinophils # (Manual) Nucleated RBC % Basophils # (Manual) PT INR APTT Heparin Anti-Xa Level ABG pH POC ABG pO2 ABG pO2 ABG HCO3 ABG O2 Saturation ABG Base Excess POC ABG pCO2 ABG Hemoglobin ABG Oxyhemoglobin ABG Chloride ABG Glucose Oxyhemoglobin Sodium Potassium Chloride Carbon Dioxide BUN 29 H Creatinine Glucose POC Glucose 107 H Lactic Acid Calcium Phosphorus Magnesium AST ALT Lactate Dehydrogenase Total Bilirubin Direct Bilirubin CK-MB (CK-2) C-Reactive Protein NT-Pro-B Natriuret Pep Total Protein Albumin Arterial Blood Glucose Urine WBC (Auto) Urine Creatinine 11/26/19 11/27/1911/26/20 17:11 01:53 04:11 WBC RBC Hgb Hct MCHC RDW MCV MCH Lymph % (Auto) [place] % (Auto) [place] # Eos # Lymph # (Auto) [place] # (Auto) Eos # (Auto) Seg Neutrophils % Seg Neuts % (Manual) Baso # (Auto) Lymphocytes % (Manual) Monocytes % (Manual) Eosinophils % (Manual) Basophils % (Manual) Seg Neutrophils # Seg Neutrophils # Man Lymphocytes # (Manual) Monocytes # (Manual) Eosinophils # (Manual) Nucleated RBC % Basophils # (Manual) PT INR APTT Heparin Anti-Xa Level ABG pH POC ABG pO2 ABG pO2 ABG HCO3 29.2 H ABG O2 Saturation ABG Base Excess 3.4 H POC ABG pCO2 ABG Hemoglobin 13.3 L ABG Oxyhemoglobin ABG Chloride ABG Glucose Oxyhemoglobin 94.5 L Sodium Potassium Chloride Carbon Dioxide BUN Creatinine Glucose POC Glucose 113 H 108 H Lactic Acid Calcium Phosphorus Magnesium AST ALT Lactate Dehydrogenase Total Bilirubin Direct Bilirubin CK-MB (CK-2) C-Reactive Protein NT-Pro-B Natriuret Pep Total Protein Albumin Arterial Blood Glucose Urine WBC (Auto) Urine Creatinine 11/27/19 11/28/19 11/28/19 05:27 05:00 05:25 WBC RBC Hgb Hct MCHC RDW MCV MCH Lymph % (Auto) [place] % (Auto) [place] # Eos # Lymph # (Auto) [place] # (Auto) Eos # (Auto) Seg Neutrophils % Seg Neuts % (Manual) Baso # (Auto) Lymphocytes % (Manual) Monocytes % (Manual) Eosinophils % (Manual) Basophils % (Manual) Seg Neutrophils # Seg Neutrophils # Man Lymphocytes # (Manual) Monocytes # (Manual) Eosinophils # (Manual) Nucleated RBC % Basophils # (Manual) PT INR APTT Heparin Anti-Xa Level ABG pH POC ABG pO2 68.1 L ABG pO2 ABG HCO3 ABG O2 Saturation ABG Base Excess POC ABG pCO2 ABG Hemoglobin ABG Oxyhemoglobin 91.2 L ABG Chloride ABG Glucose Oxyhemoglobin Sodium Potassium Chloride Carbon Dioxide BUN Creatinine Glucose POC Glucose 111 H 110 H Lactic Acid Calcium Phosphorus Magnesium AST ALT Lactate Dehydrogenase Total Bilirubin Direct Bilirubin CK-MB (CK-2) C-Reactive Protein NT-Pro-B Natriuret Pep Total Protein Albumin Arterial Blood Glucose Urine WBC (Auto) Urine Creatinine 11/28/19 11/28/19 11/28/19 12:08 13:47 13:47 WBC 11.3 H RBC Hgb Hct MCHC RDW 16.1 H MCV MCH Lymph % (Auto) [place] % (Auto) 9.9 H [place] # 1.1 H Eos # Lymph # (Auto) [place] # (Auto) Eos # (Auto) Seg Neutrophils % 71.4 H Seg Neuts % (Manual) Baso # (Auto) Lymphocytes % (Manual) Monocytes % (Manual) Eosinophils % (Manual) Basophils % (Manual) Seg Neutrophils # 8.1 H Seg Neutrophils # Man Lymphocytes # (Manual) Monocytes # (Manual) Eosinophils # (Manual) Nucleated RBC % Basophils # (Manual) PT INR APTT Heparin Anti-Xa Level ABG pH POC ABG pO2 ABG pO2 ABG HCO3 ABG O2 Saturation ABG Base Excess POC ABG pCO2 ABG Hemoglobin ABG Oxyhemoglobin ABG Chloride ABG Glucose Oxyhemoglobin Sodium Potassium Chloride Carbon Dioxide BUN 23 H Creatinine Glucose 123 H POC Glucose 112 H Lactic Acid Calcium Phosphorus Magnesium AST ALT Lactate Dehydrogenase Total Bilirubin Direct Bilirubin CK-MB (CK-2) C-Reactive Protein NT-Pro-B Natriuret Pep Total Protein Albumin 3.7 L Arterial Blood Glucose Urine WBC (Auto) Urine Creatinine 11/28/19 11/29/19 11/29/19 17:26 03:55 17:04 WBC RBC Hgb Hct MCHC RDW MCV MCH Lymph % (Auto) [place] % (Auto) [place] # Eos # Lymph # (Auto) [place] # (Auto) Eos # (Auto) Seg Neutrophils % Seg Neuts % (Manual) Baso # (Auto) Lymphocytes % (Manual) Monocytes % (Manual) Eosinophils % (Manual) Basophils % (Manual) Seg Neutrophils # Seg Neutrophils # Man Lymphocytes # (Manual) Monocytes # (Manual) Eosinophils # (Manual) Nucleated RBC % Basophils # (Manual) PT INR APTT Heparin Anti-Xa Level ABG pH POC ABG pO2 ABG pO2 65.7 L ABG HCO3 28.3 H ABG O2 Saturation 93.9 L ABG Base Excess 3.6 H POC ABG pCO2 ABG Hemoglobin 13.3 L ABG Oxyhemoglobin ABG Chloride ABG Glucose Oxyhemoglobin 91.5 L Sodium Potassium Chloride Carbon Dioxide BUN Creatinine Glucose POC Glucose 123 H 119 H Lactic Acid Calcium Phosphorus Magnesium AST ALT Lactate Dehydrogenase Total Bilirubin Direct Bilirubin CK-MB (CK-2) C-Reactive Protein NT-Pro-B Natriuret Pep Total Protein Albumin Arterial Blood Glucose Urine WBC (Auto) Urine Creatinine 11/30/19 11/30/19 11/30/19 04:17 04:17 04:56 WBC 13.4 H RBC Hgb Hct MCHC RDW 15.6 H MCV MCH Lymph % (Auto) [place] % (Auto) [place] # Eos # Lymph # (Auto) [place] # (Auto) Eos # (Auto) Seg Neutrophils % Seg Neuts % (Manual) Baso # (Auto) Lymphocytes % (Manual) Monocytes % (Manual) Eosinophils % (Manual) Basophils % (Manual) Seg Neutrophils # Seg Neutrophils # Man Lymphocytes # (Manual) Monocytes # (Manual) Eosinophils # (Manual) Nucleated RBC % Basophils # (Manual) PT INR APTT Heparin Anti-Xa Level ABG pH POC ABG pO2 ABG pO2 56.3 L ABG HCO3 29.3 H ABG O2 Saturation 91.5 L ABG Base Excess 4.7 H POC ABG pCO2 ABG Hemoglobin 12.1 L ABG Oxyhemoglobin ABG Chloride ABG Glucose Oxyhemoglobin 89.2 L Sodium 147 H Potassium Chloride Carbon Dioxide BUN 30 H Creatinine Glucose 124 H POC Glucose Lactic Acid Calcium Phosphorus Magnesium AST ALT Lactate Dehydrogenase Total Bilirubin Direct Bilirubin CK-MB (CK-2) C-Reactive Protein NT-Pro-B Natriuret Pep Total Protein Albumin 3.8 L Arterial Blood Glucose Urine WBC (Auto) Urine Creatinine 11/30/19 11/30/19 11/30/19 05:51 11:54 18:17 WBC RBC Hgb Hct MCHC RDW MCV MCH Lymph % (Auto) [place] % (Auto) [place] # Eos # Lymph # (Auto) [place] # (Auto) Eos # (Auto) Seg Neutrophils % Seg Neuts % (Manual) Baso # (Auto) Lymphocytes % (Manual) Monocytes % (Manual) Eosinophils % (Manual) Basophils % (Manual) Seg Neutrophils # Seg Neutrophils # Man Lymphocytes # (Manual) Monocytes # (Manual) Eosinophils # (Manual) Nucleated RBC % Basophils # (Manual) PT INR APTT Heparin Anti-Xa Level ABG pH POC ABG pO2 ABG pO2 ABG HCO3 ABG O2 Saturation ABG Base Excess POC ABG pCO2 ABG Hemoglobin ABG Oxyhemoglobin ABG Chloride ABG Glucose Oxyhemoglobin Sodium Potassium Chloride Carbon Dioxide BUN Creatinine Glucose POC Glucose 127 H 115 H 143 H Lactic Acid Calcium Phosphorus Magnesium AST ALT Lactate Dehydrogenase Total Bilirubin Direct Bilirubin CK-MB (CK-2) C-Reactive Protein NT-Pro-B Natriuret Pep Total Protein Albumin Arterial Blood Glucose Urine WBC (Auto) Urine Creatinine 12/01/19 12/01/19 12/01/19 01:18 05:22 12:16 WBC RBC Hgb Hct MCHC RDW MCV MCH Lymph % (Auto) [place] % (Auto) [place] # Eos # Lymph # (Auto) [place] # (Auto) Eos # (Auto) Seg Neutrophils % Seg Neuts % (Manual) Baso # (Auto) Lymphocytes % (Manual) Monocytes % (Manual) Eosinophils % (Manual) Basophils % (Manual) Seg Neutrophils # Seg Neutrophils # Man Lymphocytes # (Manual) Monocytes # (Manual) Eosinophils # (Manual) Nucleated RBC % Basophils # (Manual) PT INR APTT Heparin Anti-Xa Level ABG pH POC ABG pO2 ABG pO2 ABG HCO3 ABG O2 Saturation ABG Base Excess POC ABG pCO2 ABG Hemoglobin ABG Oxyhemoglobin ABG Chloride ABG Glucose Oxyhemoglobin Sodium Potassium 3.5 L Chloride 107.8 H Carbon Dioxide BUN 37 H Creatinine Glucose 157 H POC Glucose 118 H 148 H Lactic Acid Calcium 8.2 L D Phosphorus Magnesium AST 48 H ALT 60 H Lactate Dehydrogenase 194 H Total Bilirubin Direct Bilirubin CK-MB (CK-2) C-Reactive Protein 8.50 H NT-Pro-B Natriuret Pep Total Protein 5.5 L Albumin 2.8 L Arterial Blood Glucose Urine WBC (Auto) Urine Creatinine 12/01/19 12/02/19 12/02/19 18:04 00:05 05:16 WBC 11.4 H RBC Hgb Hct MCHC RDW 15.9 H MCV MCH Lymph % (Auto) [place] % (Auto) 9.9 H [place] # 1.1 H Eos # Lymph # (Auto) [place] # (Auto) Eos # (Auto) Seg Neutrophils % 70.3 H Seg Neuts % (Manual) Baso # (Auto) Lymphocytes % (Manual) Monocytes % (Manual) Eosinophils % (Manual) Basophils % (Manual) Seg Neutrophils # 8.0 H Seg Neutrophils # Man Lymphocytes # (Manual) Monocytes # (Manual) Eosinophils # (Manual) Nucleated RBC % Basophils # (Manual) PT INR APTT Heparin Anti-Xa Level ABG pH POC ABG pO2 ABG pO2 ABG HCO3 ABG O2 Saturation ABG Base Excess POC ABG pCO2 ABG Hemoglobin ABG Oxyhemoglobin ABG Chloride ABG Glucose Oxyhemoglobin Sodium Potassium Chloride Carbon Dioxide BUN Creatinine Glucose POC Glucose 143 H 107 H Lactic Acid Calcium Phosphorus Magnesium AST ALT Lactate Dehydrogenase Total Bilirubin Direct Bilirubin CK-MB (CK-2) C-Reactive Protein NT-Pro-B Natriuret Pep Total Protein Albumin Arterial Blood Glucose Urine WBC (Auto) Urine Creatinine 12/02/19 12/02/19 12/02/19 05:16 06:03 11:52 WBC RBC Hgb Hct MCHC RDW MCV MCH Lymph % (Auto) [place] % (Auto) [place] # Eos # Lymph # (Auto) [place] # (Auto) Eos # (Auto) Seg Neutrophils % Seg Neuts % (Manual) Baso # (Auto) Lymphocytes % (Manual) Monocytes % (Manual) Eosinophils % (Manual) Basophils % (Manual) Seg Neutrophils # Seg Neutrophils # Man Lymphocytes # (Manual) Monocytes # (Manual) Eosinophils # (Manual) Nucleated RBC % Basophils # (Manual) PT INR APTT Heparin Anti-Xa Level ABG pH POC ABG pO2 ABG pO2 ABG HCO3 ABG O2 Saturation ABG Base Excess POC ABG pCO2 ABG Hemoglobin ABG Oxyhemoglobin ABG Chloride ABG Glucose Oxyhemoglobin Sodium 146 H Potassium Chloride Carbon Dioxide BUN 28 H Creatinine Glucose 123 H POC Glucose 110 H 152 H Lactic Acid Calcium Phosphorus Magnesium AST ALT Lactate Dehydrogenase Total Bilirubin Direct Bilirubin CK-MB (CK-2) C-Reactive Protein NT-Pro-B Natriuret Pep Total Protein Albumin Arterial Blood Glucose Urine WBC (Auto) Urine Creatinine 12/02/19 12/02/19 12/02/19 12:58 17:58 23:36 WBC RBC Hgb Hct MCHC RDW MCV MCH Lymph % (Auto) [place] % (Auto) [place] # Eos # Lymph # (Auto) [place] # (Auto) Eos # (Auto) Seg Neutrophils % Seg Neuts % (Manual) Baso # (Auto) Lymphocytes % (Manual) Monocytes % (Manual) Eosinophils % (Manual) Basophils % (Manual) Seg Neutrophils # Seg Neutrophils # Man Lymphocytes # (Manual) Monocytes # (Manual) Eosinophils # (Manual) Nucleated RBC % Basophils # (Manual) PT INR APTT Heparin Anti-Xa Level ABG pH POC ABG pO2 78.1 L ABG pO2 ABG HCO3 ABG O2 Saturation ABG Base Excess POC ABG pCO2 ABG Hemoglobin ABG Oxyhemoglobin ABG Chloride ABG Glucose Oxyhemoglobin Sodium Potassium Chloride Carbon Dioxide BUN Creatinine Glucose POC Glucose 120 H 123 H Lactic Acid Calcium Phosphorus Magnesium AST ALT Lactate Dehydrogenase Total Bilirubin Direct Bilirubin CK-MB (CK-2) C-Reactive Protein NT-Pro-B Natriuret Pep Total Protein Albumin Arterial Blood Glucose Urine WBC (Auto) Urine Creatinine 12/03/19 12/03/19 12/03/19 06:03 06:14 11:46 WBC RBC Hgb Hct MCHC RDW MCV MCH Lymph % (Auto) [place] % (Auto) [place] # Eos # Lymph # (Auto) [place] # (Auto) Eos # (Auto) Seg Neutrophils % Seg Neuts % (Manual) Baso # (Auto) Lymphocytes % (Manual) Monocytes % (Manual) Eosinophils % (Manual) Basophils % (Manual) Seg Neutrophils # Seg Neutrophils # Man Lymphocytes # (Manual) Monocytes # (Manual) Eosinophils # (Manual) Nucleated RBC % Basophils # (Manual) PT INR APTT Heparin Anti-Xa Level ABG pH POC ABG pO2 ABG pO2 ABG HCO3 ABG O2 Saturation ABG Base Excess POC ABG pCO2 ABG Hemoglobin ABG Oxyhemoglobin ABG Chloride ABG Glucose Oxyhemoglobin Sodium Potassium Chloride Carbon Dioxide BUN Creatinine Glucose POC Glucose 142 H 130 H Lactic Acid Calcium Phosphorus Magnesium AST ALT Lactate Dehydrogenase Total Bilirubin Direct Bilirubin CK-MB (CK-2) C-Reactive Protein NT-Pro-B Natriuret Pep Total Protein Albumin Arterial Blood Glucose Urine WBC (Auto) 8.0 H Urine Creatinine 12/03/19 12/03/19 12/04/19 15:50 17:39 00:04 WBC RBC Hgb Hct MCHC RDW MCV MCH Lymph % (Auto) [place] % (Auto) [place] # Eos # Lymph # (Auto) [place] # (Auto) Eos # (Auto) Seg Neutrophils % Seg Neuts % (Manual) Baso # (Auto) Lymphocytes % (Manual) Monocytes % (Manual) Eosinophils % (Manual) Basophils % (Manual) Seg Neutrophils # Seg Neutrophils # Man Lymphocytes # (Manual) Monocytes # (Manual) Eosinophils # (Manual) Nucleated RBC % Basophils # (Manual) PT INR APTT Heparin Anti-Xa Level ABG pH POC ABG pO2 ABG pO2 ABG HCO3 ABG O2 Saturation ABG Base Excess POC ABG pCO2 ABG Hemoglobin ABG Oxyhemoglobin ABG Chloride ABG Glucose Oxyhemoglobin Sodium Potassium Chloride Carbon Dioxide BUN Creatinine Glucose POC Glucose 146 H 133 H Lactic Acid Calcium Phosphorus 2.40 L Magnesium AST ALT Lactate Dehydrogenase Total Bilirubin Direct Bilirubin CK-MB (CK-2) C-Reactive Protein NT-Pro-B Natriuret Pep Total Protein Albumin Arterial Blood Glucose Urine WBC (Auto) Urine Creatinine 12/04/19 12/04/19 12/04/19 03:58 03:58 05:22 WBC 12.5 H RBC Hgb 11.2 L Hct 35.2 L MCHC RDW 16.0 H MCV MCH Lymph % (Auto) [place] % (Auto) 9.6 H [place] # 1.2 H Eos # 0.5 H Lymph # (Auto) [place] # (Auto) Eos # (Auto) Seg Neutrophils % Seg Neuts % (Manual) Baso # (Auto) Lymphocytes % (Manual) Monocytes % (Manual) Eosinophils % (Manual) Basophils % (Manual) Seg Neutrophils # 8.6 H Seg Neutrophils # Man Lymphocytes # (Manual) Monocytes # (Manual) Eosinophils # (Manual) Nucleated RBC % Basophils # (Manual) PT INR APTT Heparin Anti-Xa Level ABG pH POC ABG pO2 ABG pO2 ABG HCO3 ABG O2 Saturation ABG Base Excess POC ABG pCO2 ABG Hemoglobin ABG Oxyhemoglobin ABG Chloride ABG Glucose Oxyhemoglobin Sodium 146 H Potassium Chloride 108.6 H Carbon Dioxide BUN 30 H Creatinine 0.7 L Glucose 121 H POC Glucose 132 H Lactic Acid Calcium Phosphorus Magnesium AST ALT Lactate Dehydrogenase Total Bilirubin Direct Bilirubin CK-MB (CK-2) C-Reactive Protein NT-Pro-B Natriuret Pep Total Protein Albumin Arterial Blood Glucose Urine WBC (Auto) Urine Creatinine 12/04/19 12/04/19 12/05/19 13:26 18:43 00:19 WBC RBC Hgb Hct MCHC RDW MCV MCH Lymph % (Auto) [place] % (Auto) [place] # Eos # Lymph # (Auto) [place] # (Auto) Eos # (Auto) Seg Neutrophils % Seg Neuts % (Manual) Baso # (Auto) Lymphocytes % (Manual) Monocytes % (Manual) Eosinophils % (Manual) Basophils % (Manual) Seg Neutrophils # Seg Neutrophils # Man Lymphocytes # (Manual) Monocytes # (Manual) Eosinophils # (Manual) Nucleated RBC % Basophils # (Manual) PT INR APTT Heparin Anti-Xa Level ABG pH POC ABG pO2 ABG pO2 ABG HCO3 ABG O2 Saturation ABG Base Excess POC ABG pCO2 ABG Hemoglobin ABG Oxyhemoglobin ABG Chloride ABG Glucose Oxyhemoglobin Sodium Potassium Chloride Carbon Dioxide BUN Creatinine Glucose POC Glucose 185 H 156 H 150 H Lactic Acid Calcium Phosphorus Magnesium AST ALT Lactate Dehydrogenase Total Bilirubin Direct Bilirubin CK-MB (CK-2) C-Reactive Protein NT-Pro-B Natriuret Pep Total Protein Albumin Arterial Blood Glucose Urine WBC (Auto) Urine Creatinine 12/05/19 12/05/19 12/05/19 03:37 03:37 05:14 WBC 16.3 H RBC Hgb 11.4 L Hct MCHC RDW 15.6 H MCV MCH Lymph % (Auto) 9.9 L [place] % (Auto) 9.7 H [place] # 1.6 H Eos # Lymph # (Auto) [place] # (Auto) Eos # (Auto) Seg Neutrophils % 78.0 H Seg Neuts % (Manual) Baso # (Auto) Lymphocytes % (Manual) Monocytes % (Manual) Eosinophils % (Manual) Basophils % (Manual) Seg Neutrophils # 12.7 H Seg Neutrophils # Man Lymphocytes # (Manual) Monocytes # (Manual) Eosinophils # (Manual) Nucleated RBC % Basophils # (Manual) PT INR APTT Heparin Anti-Xa Level ABG pH POC ABG pO2 ABG pO2 ABG HCO3 ABG O2 Saturation ABG Base Excess POC ABG pCO2 ABG Hemoglobin ABG Oxyhemoglobin ABG Chloride ABG Glucose Oxyhemoglobin Sodium 146 H Potassium Chloride 107.2 H Carbon Dioxide BUN 27 H Creatinine 0.7 L Glucose 171 H POC Glucose 168 H Lactic Acid Calcium Phosphorus Magnesium AST ALT Lactate Dehydrogenase Total Bilirubin Direct Bilirubin CK-MB (CK-2) C-Reactive Protein NT-Pro-B Natriuret Pep Total Protein Albumin Arterial Blood Glucose Urine WBC (Auto) Urine Creatinine 12/05/19 12/05/19 12/05/19 12:31 18:10 23:58 WBC RBC Hgb Hct MCHC RDW MCV MCH Lymph % (Auto) [place] % (Auto) [place] # Eos # Lymph # (Auto) [place] # (Auto) Eos # (Auto) Seg Neutrophils % Seg Neuts % (Manual) Baso # (Auto) Lymphocytes % (Manual) Monocytes % (Manual) Eosinophils % (Manual) Basophils % (Manual) Seg Neutrophils # Seg Neutrophils # Man Lymphocytes # (Manual) Monocytes # (Manual) Eosinophils # (Manual) Nucleated RBC % Basophils # (Manual) PT INR APTT Heparin Anti-Xa Level ABG pH POC ABG pO2 ABG pO2 ABG HCO3 ABG O2 Saturation ABG Base Excess POC ABG pCO2 ABG Hemoglobin ABG Oxyhemoglobin ABG Chloride ABG Glucose Oxyhemoglobin Sodium Potassium Chloride Carbon Dioxide BUN Creatinine Glucose POC Glucose 159 H 198 H 115 H Lactic Acid Calcium Phosphorus Magnesium AST ALT Lactate Dehydrogenase Total Bilirubin Direct Bilirubin CK-MB (CK-2) C-Reactive Protein NT-Pro-B Natriuret Pep Total Protein Albumin Arterial Blood Glucose Urine WBC (Auto) Urine Creatinine 12/06/19 12/06/19 12/06/19 05:24 05:24 05:25 WBC 14.9 H RBC Hgb 10.8 L Hct 34.0 L MCHC RDW 15.6 H MCV MCH Lymph % (Auto) 10.7 L [place] % (Auto) 8.3 H [place] # 1.2 H Eos # Lymph # (Auto) [place] # (Auto) Eos # (Auto) Seg Neutrophils % 78.7 H Seg Neuts % (Manual) Baso # (Auto) Lymphocytes % (Manual) Monocytes % (Manual) Eosinophils % (Manual) Basophils % (Manual) Seg Neutrophils # 11.7 H Seg Neutrophils # Man Lymphocytes # (Manual) Monocytes # (Manual) Eosinophils # (Manual) Nucleated RBC % Basophils # (Manual) PT INR APTT Heparin Anti-Xa Level ABG pH POC ABG pO2 ABG pO2 ABG HCO3 ABG O2 Saturation ABG Base Excess POC ABG pCO2 ABG Hemoglobin ABG Oxyhemoglobin ABG Chloride ABG Glucose Oxyhemoglobin Sodium 148 H Potassium 5.1 H Chloride 107.6 H Carbon Dioxide BUN 27 H Creatinine 0.7 L Glucose 155 H POC Glucose 157 H Lactic Acid Calcium Phosphorus Magnesium AST ALT Lactate Dehydrogenase Total Bilirubin Direct Bilirubin CK-MB (CK-2) C-Reactive Protein NT-Pro-B Natriuret Pep Total Protein Albumin Arterial Blood Glucose Urine WBC (Auto) Urine Creatinine 12/07/19 12/07/19 12/07/19 00:13 05:34 11:33 WBC RBC Hgb Hct MCHC RDW MCV MCH Lymph % (Auto) [place] % (Auto) [place] # Eos # Lymph # (Auto) [place] # (Auto) Eos # (Auto) Seg Neutrophils % Seg Neuts % (Manual) Baso # (Auto) Lymphocytes % (Manual) Monocytes % (Manual) Eosinophils % (Manual) Basophils % (Manual) Seg Neutrophils # Seg Neutrophils # Man Lymphocytes # (Manual) Monocytes # (Manual) Eosinophils # (Manual) Nucleated RBC % Basophils # (Manual) PT INR APTT Heparin Anti-Xa Level ABG pH POC ABG pO2 ABG pO2 ABG HCO3 ABG O2 Saturation ABG Base Excess POC ABG pCO2 ABG Hemoglobin ABG Oxyhemoglobin ABG Chloride ABG Glucose Oxyhemoglobin Sodium Potassium Chloride Carbon Dioxide BUN Creatinine Glucose POC Glucose 142 H 111 H 169 H Lactic Acid Calcium Phosphorus Magnesium AST ALT Lactate Dehydrogenase Total Bilirubin Direct Bilirubin CK-MB (CK-2) C-Reactive Protein NT-Pro-B Natriuret Pep Total Protein Albumin Arterial Blood Glucose Urine WBC (Auto) Urine Creatinine 12/07/19 12/07/19 12/07/19 12:41 13:25 18:19 WBC 12.4 H RBC 3.53 L Hgb 10.2 L Hct 32.1 L MCHC RDW 15.3 H MCV MCH Lymph % (Auto) 10.6 L [place] % (Auto) 7.8 H [place] # 1.0 H Eos # Lymph # (Auto) [place] # (Auto) Eos # (Auto) Seg Neutrophils % 77.6 H Seg Neuts % (Manual) Baso # (Auto) Lymphocytes % (Manual) Monocytes % (Manual) Eosinophils % (Manual) Basophils % (Manual) Seg Neutrophils # 9.6 H Seg Neutrophils # Man Lymphocytes # (Manual) Monocytes # (Manual) Eosinophils # (Manual) Nucleated RBC % Basophils # (Manual) PT INR APTT Heparin Anti-Xa Level ABG pH POC ABG pO2 ABG pO2 ABG HCO3 ABG O2 Saturation ABG Base Excess POC ABG pCO2 ABG Hemoglobin ABG Oxyhemoglobin ABG Chloride ABG Glucose Oxyhemoglobin Sodium 149 H Potassium Chloride 108.4 H Carbon Dioxide BUN 26 H Creatinine 0.6 L Glucose 149 H POC Glucose 164 H Lactic Acid Calcium Phosphorus Magnesium 2.60 H AST 121 H ALT 145 H Lactate Dehydrogenase Total Bilirubin Direct Bilirubin CK-MB (CK-2) C-Reactive Protein NT-Pro-B Natriuret Pep Total Protein Albumin 2.6 L Arterial Blood Glucose Urine WBC (Auto) Urine Creatinine 12/07/19 12/08/19 12/08/19 22:25 00:02 03:55 WBC 13.3 H RBC 3.40 L Hgb 9.7 L Hct 30.8 L MCHC 31 L RDW 15.5 H MCV MCH Lymph % (Auto) [place] % (Auto) 8.1 H [place] # 1.1 H Eos # Lymph # (Auto) [place] # (Auto) Eos # (Auto) Seg Neutrophils % 73.0 H Seg Neuts % (Manual) Baso # (Auto) Lymphocytes % (Manual) Monocytes % (Manual) Eosinophils % (Manual) Basophils % (Manual) Seg Neutrophils # 9.7 H Seg Neutrophils # Man Lymphocytes # (Manual) Monocytes # (Manual) Eosinophils # (Manual) Nucleated RBC % Basophils # (Manual) PT INR APTT Heparin Anti-Xa Level 0.12 L ABG pH POC ABG pO2 ABG pO2 ABG HCO3 ABG O2 Saturation ABG Base Excess POC ABG pCO2 ABG Hemoglobin ABG Oxyhemoglobin ABG Chloride ABG Glucose Oxyhemoglobin Sodium Potassium Chloride Carbon Dioxide BUN Creatinine Glucose POC Glucose 151 H Lactic Acid Calcium Phosphorus Magnesium AST ALT Lactate Dehydrogenase Total Bilirubin Direct Bilirubin CK-MB (CK-2) C-Reactive Protein NT-Pro-B Natriuret Pep Total Protein Albumin Arterial Blood Glucose Urine WBC (Auto) Urine Creatinine 12/08/19 12/08/19 12/08/19 03:55 05:21 06:01 WBC RBC Hgb Hct MCHC RDW MCV MCH Lymph % (Auto) [place] % (Auto) [place] # Eos # Lymph # (Auto) [place] # (Auto) Eos # (Auto) Seg Neutrophils % Seg Neuts % (Manual) Baso # (Auto) Lymphocytes % (Manual) Monocytes % (Manual) Eosinophils % (Manual) Basophils % (Manual) Seg Neutrophils # Seg Neutrophils # Man Lymphocytes # (Manual) Monocytes # (Manual) Eosinophils # (Manual) Nucleated RBC % Basophils # (Manual) PT INR APTT Heparin Anti-Xa Level 0.20 L ABG pH POC ABG pO2 ABG pO2 ABG HCO3 ABG O2 Saturation ABG Base Excess POC ABG pCO2 ABG Hemoglobin ABG Oxyhemoglobin ABG Chloride ABG Glucose Oxyhemoglobin Sodium 149 H Potassium Chloride 108.0 H Carbon Dioxide BUN 28 H Creatinine 0.6 L Glucose 144 H POC Glucose 143 H Lactic Acid Calcium Phosphorus Magnesium AST 98 H ALT 145 H Lactate Dehydrogenase Total Bilirubin Direct Bilirubin CK-MB (CK-2) C-Reactive Protein NT-Pro-B Natriuret Pep Total Protein 6.0 L Albumin 2.4 L Arterial Blood Glucose Urine WBC (Auto) Urine Creatinine 12/08/19 12/08/19 12/08/19 12:08 18:11 23:53 WBC RBC Hgb Hct MCHC RDW MCV MCH Lymph % (Auto) [place] % (Auto) [place] # Eos # Lymph # (Auto) [place] # (Auto) Eos # (Auto) Seg Neutrophils % Seg Neuts % (Manual) Baso # (Auto) Lymphocytes % (Manual) Monocytes % (Manual) Eosinophils % (Manual) Basophils % (Manual) Seg Neutrophils # Seg Neutrophils # Man Lymphocytes # (Manual) Monocytes # (Manual) Eosinophils # (Manual) Nucleated RBC % Basophils # (Manual) PT INR APTT Heparin Anti-Xa Level ABG pH POC ABG pO2 ABG pO2 ABG HCO3 ABG O2 Saturation ABG Base Excess POC ABG pCO2 ABG Hemoglobin ABG Oxyhemoglobin ABG Chloride ABG Glucose Oxyhemoglobin Sodium Potassium Chloride Carbon Dioxide BUN Creatinine Glucose POC Glucose 172 H 122 H 162 H Lactic Acid Calcium Phosphorus Magnesium AST ALT Lactate Dehydrogenase Total Bilirubin Direct Bilirubin CK-MB (CK-2) C-Reactive Protein NT-Pro-B Natriuret Pep Total Protein Albumin Arterial Blood Glucose Urine WBC (Auto) Urine Creatinine 12/09/19 12/09/19 12/09/19 04:03 04:03 05:53 WBC RBC Hgb 9.1 L Hct 28.9 L MCHC RDW MCV MCH Lymph % (Auto) [place] % (Auto) [place] # Eos # Lymph # (Auto) [place] # (Auto) Eos # (Auto) Seg Neutrophils % Seg Neuts % (Manual) Baso # (Auto) Lymphocytes % (Manual) Monocytes % (Manual) Eosinophils % (Manual) Basophils % (Manual) Seg Neutrophils # Seg Neutrophils # Man Lymphocytes # (Manual) Monocytes # (Manual) Eosinophils # (Manual) Nucleated RBC % Basophils # (Manual) PT INR APTT Heparin Anti-Xa Level 0.15 L ABG pH POC ABG pO2 ABG pO2 ABG HCO3 ABG O2 Saturation ABG Base Excess POC ABG pCO2 ABG Hemoglobin ABG Oxyhemoglobin ABG Chloride ABG Glucose Oxyhemoglobin Sodium Potassium Chloride Carbon Dioxide BUN Creatinine Glucose POC Glucose 124 H Lactic Acid Calcium Phosphorus Magnesium AST ALT Lactate Dehydrogenase Total Bilirubin Direct Bilirubin CK-MB (CK-2) C-Reactive Protein NT-Pro-B Natriuret Pep Total Protein Albumin Arterial Blood Glucose Urine WBC (Auto) Urine Creatinine 12/09/19 12/09/19 12/10/19 09:43 12:41 00:13 WBC RBC Hgb Hct MCHC RDW MCV MCH Lymph % (Auto) [place] % (Auto) [place] # Eos # Lymph # (Auto) [place] # (Auto) Eos # (Auto) Seg Neutrophils % Seg Neuts % (Manual) Baso # (Auto) Lymphocytes % (Manual) Monocytes % (Manual) Eosinophils % (Manual) Basophils % (Manual) Seg Neutrophils # Seg Neutrophils # Man Lymphocytes # (Manual) Monocytes # (Manual) Eosinophils # (Manual) Nucleated RBC % Basophils # (Manual) PT INR APTT Heparin Anti-Xa Level ABG pH POC ABG pO2 ABG pO2 ABG HCO3 ABG O2 Saturation ABG Base Excess POC ABG pCO2 ABG Hemoglobin ABG Oxyhemoglobin ABG Chloride ABG Glucose Oxyhemoglobin Sodium Potassium Chloride Carbon Dioxide BUN 25 H Creatinine 0.6 L Glucose 131 H POC Glucose 109 H 120 H Lactic Acid Calcium Phosphorus Magnesium AST ALT Lactate Dehydrogenase Total Bilirubin Direct Bilirubin CK-MB (CK-2) C-Reactive Protein NT-Pro-B Natriuret Pep Total Protein Albumin Arterial Blood Glucose Urine WBC (Auto) Urine Creatinine 12/10/19 12/10/19 12/10/19 04:14 04:14 12:00 WBC 13.3 H RBC 3.34 L Hgb 9.6 L Hct 30.4 L MCHC RDW 15.4 H MCV MCH Lymph % (Auto) [place] % (Auto) [place] # Eos # Lymph # (Auto) [place] # (Auto) Eos # (Auto) Seg Neutrophils % Seg Neuts % (Manual) 75.0 H Baso # (Auto) Lymphocytes % (Manual) 13.0 L Monocytes % (Manual) 8.0 H Eosinophils % (Manual) Basophils % (Manual) 2.0 H Seg Neutrophils # Seg Neutrophils # Man 10.0 H Lymphocytes # (Manual) Monocytes # (Manual) 1.1 H Eosinophils # (Manual) Nucleated RBC % Basophils # (Manual) 0.3 H PT INR APTT Heparin Anti-Xa Level ABG pH POC ABG pO2 ABG pO2 ABG HCO3 ABG O2 Saturation ABG Base Excess POC ABG pCO2 ABG Hemoglobin ABG Oxyhemoglobin ABG Chloride ABG Glucose Oxyhemoglobin Sodium 147 H Potassium Chloride 108.3 H Carbon Dioxide BUN 21 H Creatinine 0.6 L Glucose 104 H POC Glucose 133 H Lactic Acid Calcium Phosphorus Magnesium AST ALT Lactate Dehydrogenase Total Bilirubin Direct Bilirubin CK-MB (CK-2) C-Reactive Protein NT-Pro-B Natriuret Pep Total Protein Albumin Arterial Blood Glucose Urine WBC (Auto) Urine Creatinine 12/10/19 12/10/19 12/11/19 18:44 21:20 00:08 WBC 14.9 H RBC 3.36 L Hgb 9.6 L Hct 30.5 L MCHC RDW 15.4 H MCV MCH Lymph % (Auto) [place] % (Auto) [place] # Eos # Lymph # (Auto) [place] # (Auto) Eos # (Auto) Seg Neutrophils % Seg Neuts % (Manual) Baso # (Auto) Lymphocytes % (Manual) Monocytes % (Manual) Eosinophils % (Manual) Basophils % (Manual) Seg Neutrophils # Seg Neutrophils # Man Lymphocytes # (Manual) Monocytes # (Manual) Eosinophils # (Manual) Nucleated RBC % Basophils # (Manual) PT INR APTT Heparin Anti-Xa Level ABG pH POC ABG pO2 ABG pO2 ABG HCO3 ABG O2 Saturation ABG Base Excess POC ABG pCO2 ABG Hemoglobin ABG Oxyhemoglobin ABG Chloride ABG Glucose Oxyhemoglobin Sodium Potassium Chloride Carbon Dioxide BUN Creatinine Glucose POC Glucose 119 H 134 H Lactic Acid Calcium Phosphorus Magnesium AST ALT Lactate Dehydrogenase Total Bilirubin Direct Bilirubin CK-MB (CK-2) C-Reactive Protein NT-Pro-B Natriuret Pep Total Protein Albumin Arterial Blood Glucose Urine WBC (Auto) Urine Creatinine 12/11/19 12/11/19 12/11/19 03:54 07:28 08:36 WBC 11.9 H RBC 3.25 L Hgb 9.6 L Hct 29.2 L MCHC RDW 15.7 H MCV MCH Lymph % (Auto) [place] % (Auto) [place] # Eos # Lymph # (Auto) [place] # (Auto) Eos # (Auto) Seg Neutrophils % Seg Neuts % (Manual) Baso # (Auto) Lymphocytes % (Manual) Monocytes % (Manual) Eosinophils % (Manual) Basophils % (Manual) Seg Neutrophils # Seg Neutrophils # Man Lymphocytes # (Manual) Monocytes # (Manual) Eosinophils # (Manual) Nucleated RBC % Basophils # (Manual) PT INR APTT Heparin Anti-Xa Level 0.10 L 0.16 L ABG pH POC ABG pO2 ABG pO2 ABG HCO3 ABG O2 Saturation ABG Base Excess POC ABG pCO2 ABG Hemoglobin ABG Oxyhemoglobin ABG Chloride ABG Glucose Oxyhemoglobin Sodium Potassium Chloride Carbon Dioxide BUN Creatinine Glucose POC Glucose Lactic Acid Calcium Phosphorus Magnesium AST ALT Lactate Dehydrogenase Total Bilirubin Direct Bilirubin CK-MB (CK-2) C-Reactive Protein NT-Pro-B Natriuret Pep Total Protein Albumin Arterial Blood Glucose Urine WBC (Auto) Urine Creatinine 12/11/19 12/11/19 12/11/19 08:36 11:45 17:15 WBC RBC Hgb Hct MCHC RDW MCV MCH Lymph % (Auto) [place] % (Auto) [place] # Eos # Lymph # (Auto) [place] # (Auto) Eos # (Auto) Seg Neutrophils % Seg Neuts % (Manual) Baso # (Auto) Lymphocytes % (Manual) Monocytes % (Manual) Eosinophils % (Manual) Basophils % (Manual) Seg Neutrophils # Seg Neutrophils # Man Lymphocytes # (Manual) Monocytes # (Manual) Eosinophils # (Manual) Nucleated RBC % Basophils # (Manual) PT INR APTT Heparin Anti-Xa Level ABG pH POC ABG pO2 ABG pO2 ABG HCO3 ABG O2 Saturation ABG Base Excess POC ABG pCO2 ABG Hemoglobin ABG Oxyhemoglobin ABG Chloride ABG Glucose Oxyhemoglobin Sodium Potassium Chloride Carbon Dioxide BUN Creatinine 0.5 L Glucose 128 H POC Glucose 136 H 109 H Lactic Acid Calcium Phosphorus Magnesium AST ALT Lactate Dehydrogenase Total Bilirubin Direct Bilirubin CK-MB (CK-2) C-Reactive Protein NT-Pro-B Natriuret Pep Total Protein Albumin Arterial Blood Glucose Urine WBC (Auto) Urine Creatinine 12/12/19 12/12/19 12/12/19 00:03 05:53 05:53 WBC RBC Hgb 8.8 L Hct 27.6 L MCHC RDW MCV MCH Lymph % (Auto) [place] % (Auto) [place] # Eos # Lymph # (Auto) [place] # (Auto) Eos # (Auto) Seg Neutrophils % Seg Neuts % (Manual) Baso # (Auto) Lymphocytes % (Manual) Monocytes % (Manual) Eosinophils % (Manual) Basophils % (Manual) Seg Neutrophils # Seg Neutrophils # Man Lymphocytes # (Manual) Monocytes # (Manual) Eosinophils # (Manual) Nucleated RBC % Basophils # (Manual) PT INR APTT Heparin Anti-Xa Level 0.22 L ABG pH POC ABG pO2 ABG pO2 ABG HCO3 ABG O2 Saturation ABG Base Excess POC ABG pCO2 ABG Hemoglobin ABG Oxyhemoglobin ABG Chloride ABG Glucose Oxyhemoglobin Sodium Potassium Chloride Carbon Dioxide BUN Creatinine Glucose POC Glucose 116 H Lactic Acid Calcium Phosphorus Magnesium AST ALT Lactate Dehydrogenase Total Bilirubin Direct Bilirubin CK-MB (CK-2) C-Reactive Protein NT-Pro-B Natriuret Pep Total Protein Albumin Arterial Blood Glucose Urine WBC (Auto) Urine Creatinine 12/12/19 12/12/19 12/12/19 09:38 12:18 17:44 WBC RBC Hgb Hct MCHC RDW MCV MCH Lymph % (Auto) [place] % (Auto) [place] # Eos # Lymph # (Auto) [place] # (Auto) Eos # (Auto) Seg Neutrophils % Seg Neuts % (Manual) Baso # (Auto) Lymphocytes % (Manual) Monocytes % (Manual) Eosinophils % (Manual) Basophils % (Manual) Seg Neutrophils # Seg Neutrophils # Man Lymphocytes # (Manual) Monocytes # (Manual) Eosinophils # (Manual) Nucleated RBC % Basophils # (Manual) PT INR APTT Heparin Anti-Xa Level ABG pH POC ABG pO2 ABG pO2 ABG HCO3 ABG O2 Saturation ABG Base Excess POC ABG pCO2 ABG Hemoglobin ABG Oxyhemoglobin ABG Chloride ABG Glucose Oxyhemoglobin Sodium Potassium Chloride Carbon Dioxide BUN Creatinine Glucose POC Glucose 115 H 146 H 146 H Lactic Acid Calcium Phosphorus Magnesium AST ALT Lactate Dehydrogenase Total Bilirubin Direct Bilirubin CK-MB (CK-2) C-Reactive Protein NT-Pro-B Natriuret Pep Total Protein Albumin Arterial Blood Glucose Urine WBC (Auto) Urine Creatinine 12/12/19 12/13/19 12/13/19 23:33 05:32 05:32 WBC 13.1 H RBC 3.27 L Hgb 9.5 L Hct 29.3 L MCHC RDW 15.6 H MCV MCH Lymph % (Auto) [place] % (Auto) [place] # Eos # Lymph # (Auto) [place] # (Auto) Eos # (Auto) Seg Neutrophils % Seg Neuts % (Manual) 74.0 H Baso # (Auto) Lymphocytes % (Manual) 8.0 L Monocytes % (Manual) 9.0 H Eosinophils % (Manual) 5.0 H Basophils % (Manual) Seg Neutrophils # Seg Neutrophils # Man 9.7 H Lymphocytes # (Manual) 1.0 L Monocytes # (Manual) 1.2 H Eosinophils # (Manual) 0.7 H Nucleated RBC % Basophils # (Manual) PT INR APTT Heparin Anti-Xa Level 0.20 L ABG pH POC ABG pO2 ABG pO2 ABG HCO3 ABG O2 Saturation ABG Base Excess POC ABG pCO2 ABG Hemoglobin ABG Oxyhemoglobin ABG Chloride ABG Glucose Oxyhemoglobin Sodium Potassium Chloride Carbon Dioxide BUN Creatinine Glucose POC Glucose 126 H Lactic Acid Calcium Phosphorus Magnesium AST ALT Lactate Dehydrogenase Total Bilirubin Direct Bilirubin CK-MB (CK-2) C-Reactive Protein NT-Pro-B Natriuret Pep Total Protein Albumin Arterial Blood Glucose Urine WBC (Auto) Urine Creatinine 12/13/19 12/13/19 12/13/19 05:32 05:46 11:57 WBC RBC Hgb Hct MCHC RDW MCV MCH Lymph % (Auto) [place] % (Auto) [place] # Eos # Lymph # (Auto) [place] # (Auto) Eos # (Auto) Seg Neutrophils % Seg Neuts % (Manual) Baso # (Auto) Lymphocytes % (Manual) Monocytes % (Manual) Eosinophils % (Manual) Basophils % (Manual) Seg Neutrophils # Seg Neutrophils # Man Lymphocytes # (Manual) Monocytes # (Manual) Eosinophils # (Manual) Nucleated RBC % Basophils # (Manual) PT INR APTT Heparin Anti-Xa Level ABG pH POC ABG pO2 ABG pO2 ABG HCO3 ABG O2 Saturation ABG Base Excess POC ABG pCO2 ABG Hemoglobin ABG Oxyhemoglobin ABG Chloride ABG Glucose Oxyhemoglobin Sodium Potassium Chloride Carbon Dioxide 31 H BUN Creatinine 0.6 L Glucose 114 H POC Glucose 118 H 133 H Lactic Acid Calcium Phosphorus Magnesium AST ALT Lactate Dehydrogenase Total Bilirubin Direct Bilirubin CK-MB (CK-2) C-Reactive Protein NT-Pro-B Natriuret Pep Total Protein Albumin Arterial Blood Glucose Urine WBC (Auto) Urine Creatinine 12/13/19 12/13/19 12/14/19 17:44 23:46 05:32 WBC RBC Hgb Hct MCHC RDW MCV MCH Lymph % (Auto) [place] % (Auto) [place] # Eos # Lymph # (Auto) [place] # (Auto) Eos # (Auto) Seg Neutrophils % Seg Neuts % (Manual) Baso # (Auto) Lymphocytes % (Manual) Monocytes % (Manual) Eosinophils % (Manual) Basophils % (Manual) Seg Neutrophils # Seg Neutrophils # Man Lymphocytes # (Manual) Monocytes # (Manual) Eosinophils # (Manual) Nucleated RBC % Basophils # (Manual) PT INR APTT Heparin Anti-Xa Level ABG pH POC ABG pO2 ABG pO2 ABG HCO3 ABG O2 Saturation ABG Base Excess POC ABG pCO2 ABG Hemoglobin ABG Oxyhemoglobin ABG Chloride ABG Glucose Oxyhemoglobin Sodium Potassium Chloride Carbon Dioxide BUN Creatinine Glucose POC Glucose 161 H 126 H 139 H Lactic Acid Calcium Phosphorus Magnesium AST ALT Lactate Dehydrogenase Total Bilirubin Direct Bilirubin CK-MB (CK-2) C-Reactive Protein NT-Pro-B Natriuret Pep Total Protein Albumin Arterial Blood Glucose Urine WBC (Auto) Urine Creatinine 12/14/19 12/14/19 12/14/19 06:03 06:03 09:37 WBC RBC Hgb 9.6 L Hct 30.4 L MCHC RDW MCV MCH Lymph % (Auto) [place] % (Auto) [place] # Eos # Lymph # (Auto) [place] # (Auto) Eos # (Auto) Seg Neutrophils % Seg Neuts % (Manual) Baso # (Auto) Lymphocytes % (Manual) Monocytes % (Manual) Eosinophils % (Manual) Basophils % (Manual) Seg Neutrophils # Seg Neutrophils # Man Lymphocytes # (Manual) Monocytes # (Manual) Eosinophils # (Manual) Nucleated RBC % Basophils # (Manual) PT INR APTT Heparin Anti-Xa Level 0.24 L ABG pH POC ABG pO2 ABG pO2 ABG HCO3 ABG O2 Saturation ABG Base Excess POC ABG pCO2 ABG Hemoglobin ABG Oxyhemoglobin ABG Chloride ABG Glucose Oxyhemoglobin Sodium Potassium Chloride Carbon Dioxide BUN Creatinine 0.6 L Glucose 162 H POC Glucose Lactic Acid Calcium Phosphorus Magnesium AST 71 H ALT 118 H Lactate Dehydrogenase Total Bilirubin Direct Bilirubin CK-MB (CK-2) C-Reactive Protein NT-Pro-B Natriuret Pep Total Protein 6.2 L Albumin 2.3 L Arterial Blood Glucose Urine WBC (Auto) Urine Creatinine 12/14/19 12/14/19 12/15/19 12:06 18:18 00:19 WBC RBC Hgb Hct MCHC RDW MCV MCH Lymph % (Auto) [place] % (Auto) [place] # Eos # Lymph # (Auto) [place] # (Auto) Eos # (Auto) Seg Neutrophils % Seg Neuts % (Manual) Baso # (Auto) Lymphocytes % (Manual) Monocytes % (Manual) Eosinophils % (Manual) Basophils % (Manual) Seg Neutrophils # Seg Neutrophils # Man Lymphocytes # (Manual) Monocytes # (Manual) Eosinophils # (Manual) Nucleated RBC % Basophils # (Manual) PT INR APTT Heparin Anti-Xa Level ABG pH POC ABG pO2 ABG pO2 ABG HCO3 ABG O2 Saturation ABG Base Excess POC ABG pCO2 ABG Hemoglobin ABG Oxyhemoglobin ABG Chloride ABG Glucose Oxyhemoglobin Sodium Potassium Chloride Carbon Dioxide BUN Creatinine Glucose POC Glucose 147 H 166 H 123 H Lactic Acid Calcium Phosphorus Magnesium AST ALT Lactate Dehydrogenase Total Bilirubin Direct Bilirubin CK-MB (CK-2) C-Reactive Protein NT-Pro-B Natriuret Pep Total Protein Albumin Arterial Blood Glucose Urine WBC (Auto) Urine Creatinine 12/15/19 12/15/19 12/15/19 05:28 05:29 05:29 WBC 14.9 H RBC 3.19 L Hgb 9.1 L Hct 28.7 L MCHC RDW 16.0 H MCV MCH Lymph % (Auto) [place] % (Auto) [place] # Eos # Lymph # (Auto) [place] # (Auto) Eos # (Auto) Seg Neutrophils % Seg Neuts % (Manual) Baso # (Auto) Lymphocytes % (Manual) Monocytes % (Manual) Eosinophils % (Manual) Basophils % (Manual) Seg Neutrophils # Seg Neutrophils # Man Lymphocytes # (Manual) Monocytes # (Manual) Eosinophils # (Manual) Nucleated RBC % Basophils # (Manual) PT INR APTT Heparin Anti-Xa Level 0.19 L ABG pH POC ABG pO2 ABG pO2 ABG HCO3 ABG O2 Saturation ABG Base Excess POC ABG pCO2 ABG Hemoglobin ABG Oxyhemoglobin ABG Chloride ABG Glucose Oxyhemoglobin Sodium Potassium Chloride Carbon Dioxide BUN Creatinine 0.6 L Glucose 110 H POC Glucose Lactic Acid Calcium Phosphorus Magnesium AST ALT Lactate Dehydrogenase Total Bilirubin Direct Bilirubin CK-MB (CK-2) C-Reactive Protein NT-Pro-B Natriuret Pep Total Protein Albumin Arterial Blood Glucose Urine WBC (Auto) Urine Creatinine 12/15/19 12/15/19 12/15/19 05:53 11:50 17:26 WBC RBC Hgb Hct MCHC RDW MCV MCH Lymph % (Auto) [place] % (Auto) [place] # Eos # Lymph # (Auto) [place] # (Auto) Eos # (Auto) Seg Neutrophils % Seg Neuts % (Manual) Baso # (Auto) Lymphocytes % (Manual) Monocytes % (Manual) Eosinophils % (Manual) Basophils % (Manual) Seg Neutrophils # Seg Neutrophils # Man Lymphocytes # (Manual) Monocytes # (Manual) Eosinophils # (Manual) Nucleated RBC % Basophils # (Manual) PT INR APTT Heparin Anti-Xa Level ABG pH POC ABG pO2 ABG pO2 ABG HCO3 ABG O2 Saturation ABG Base Excess POC ABG pCO2 ABG Hemoglobin ABG Oxyhemoglobin ABG Chloride ABG Glucose Oxyhemoglobin Sodium Potassium Chloride Carbon Dioxide BUN Creatinine Glucose POC Glucose 119 H 132 H 128 H Lactic Acid Calcium Phosphorus Magnesium AST ALT Lactate Dehydrogenase Total Bilirubin Direct Bilirubin CK-MB (CK-2) C-Reactive Protein NT-Pro-B Natriuret Pep Total Protein Albumin Arterial Blood Glucose Urine WBC (Auto) Urine Creatinine 12/15/19 12/16/19 12/16/19 23:11 05:30 05:46 WBC RBC Hgb 8.8 L Hct 27.9 L MCHC RDW MCV MCH Lymph % (Auto) [place] % (Auto) [place] # Eos # Lymph # (Auto) [place] # (Auto) Eos # (Auto) Seg Neutrophils % Seg Neuts % (Manual) Baso # (Auto) Lymphocytes % (Manual) Monocytes % (Manual) Eosinophils % (Manual) Basophils % (Manual) Seg Neutrophils # Seg Neutrophils # Man Lymphocytes # (Manual) Monocytes # (Manual) Eosinophils # (Manual) Nucleated RBC % Basophils # (Manual) PT INR APTT Heparin Anti-Xa Level ABG pH POC ABG pO2 ABG pO2 ABG HCO3 ABG O2 Saturation ABG Base Excess POC ABG pCO2 ABG Hemoglobin ABG Oxyhemoglobin ABG Chloride ABG Glucose Oxyhemoglobin Sodium Potassium Chloride Carbon Dioxide BUN Creatinine Glucose POC Glucose 150 H 134 H Lactic Acid Calcium Phosphorus Magnesium AST ALT Lactate Dehydrogenase Total Bilirubin Direct Bilirubin CK-MB (CK-2) C-Reactive Protein NT-Pro-B Natriuret Pep Total Protein Albumin Arterial Blood Glucose Urine WBC (Auto) Urine Creatinine 12/16/19 12/16/19 12/16/19 05:46 05:46 11:44 WBC RBC Hgb Hct MCHC RDW MCV MCH Lymph % (Auto) [place] % (Auto) [place] # Eos # Lymph # (Auto) [place] # (Auto) Eos # (Auto) Seg Neutrophils % Seg Neuts % (Manual) Baso # (Auto) Lymphocytes % (Manual) Monocytes % (Manual) Eosinophils % (Manual) Basophils % (Manual) Seg Neutrophils # Seg Neutrophils # Man Lymphocytes # (Manual) Monocytes # (Manual) Eosinophils # (Manual) Nucleated RBC % Basophils # (Manual) PT INR APTT Heparin Anti-Xa Level 0.20 L ABG pH POC ABG pO2 ABG pO2 ABG HCO3 ABG O2 Saturation ABG Base Excess POC ABG pCO2 ABG Hemoglobin ABG Oxyhemoglobin ABG Chloride ABG Glucose Oxyhemoglobin Sodium Potassium Chloride Carbon Dioxide 31 H BUN Creatinine 0.5 L Glucose 147 H POC Glucose 164 H Lactic Acid Calcium Phosphorus Magnesium AST ALT Lactate Dehydrogenase Total Bilirubin Direct Bilirubin CK-MB (CK-2) C-Reactive Protein NT-Pro-B Natriuret Pep Total Protein Albumin Arterial Blood Glucose Urine WBC (Auto) Urine Creatinine 12/16/19 12/16/19 12/17/19 17:17 23:49 05:30 WBC 13.9 H RBC 3.27 L Hgb 9.4 L Hct 29.2 L MCHC RDW 16.0 H MCV MCH Lymph % (Auto) [place] % (Auto) 8.8 H [place] # Eos # Lymph # (Auto) [place] # (Auto) 1.2 H Eos # (Auto) 0.5 H Seg Neutrophils % 70.5 H Seg Neuts % (Manual) Baso # (Auto) 0.2 H Lymphocytes % (Manual) Monocytes % (Manual) Eosinophils % (Manual) Basophils % (Manual) Seg Neutrophils # 9.8 H Seg Neutrophils # Man Lymphocytes # (Manual) Monocytes # (Manual) Eosinophils # (Manual) Nucleated RBC % Basophils # (Manual) PT INR APTT Heparin Anti-Xa Level ABG pH POC ABG pO2 ABG pO2 ABG HCO3 ABG O2 Saturation ABG Base Excess POC ABG pCO2 ABG Hemoglobin ABG Oxyhemoglobin ABG Chloride ABG Glucose Oxyhemoglobin Sodium Potassium Chloride Carbon Dioxide BUN Creatinine Glucose POC Glucose 162 H 144 H Lactic Acid Calcium Phosphorus Magnesium AST ALT Lactate Dehydrogenase Total Bilirubin Direct Bilirubin CK-MB (CK-2) C-Reactive Protein NT-Pro-B Natriuret Pep Total Protein Albumin Arterial Blood Glucose Urine WBC (Auto) Urine Creatinine 12/17/19 12/17/19 12/17/19 05:30 06:06 11:50 WBC RBC Hgb Hct MCHC RDW MCV MCH Lymph % (Auto) [place] % (Auto) [place] # Eos # Lymph # (Auto) [place] # (Auto) Eos # (Auto) Seg Neutrophils % Seg Neuts % (Manual) Baso # (Auto) Lymphocytes % (Manual) Monocytes % (Manual) Eosinophils % (Manual) Basophils % (Manual) Seg Neutrophils # Seg Neutrophils # Man Lymphocytes # (Manual) Monocytes # (Manual) Eosinophils # (Manual) Nucleated RBC % Basophils # (Manual) PT INR APTT Heparin Anti-Xa Level ABG pH POC ABG pO2 ABG pO2 ABG HCO3 ABG O2 Saturation ABG Base Excess POC ABG pCO2 ABG Hemoglobin ABG Oxyhemoglobin ABG Chloride ABG Glucose Oxyhemoglobin Sodium Potassium Chloride 97.4 L Carbon Dioxide 32 H BUN Creatinine 0.5 L Glucose 135 H POC Glucose 151 H 140 H Lactic Acid Calcium Phosphorus Magnesium AST ALT Lactate Dehydrogenase Total Bilirubin Direct Bilirubin CK-MB (CK-2) C-Reactive Protein NT-Pro-B Natriuret Pep Total Protein Albumin Arterial Blood Glucose Urine WBC (Auto) Urine Creatinine 12/17/19 12/17/19 12/18/19 17:50 23:46 05:17 WBC RBC Hgb 8.8 L Hct 28.0 L MCHC RDW MCV MCH Lymph % (Auto) [place] % (Auto) [place] # Eos # Lymph # (Auto) [place] # (Auto) Eos # (Auto) Seg Neutrophils % Seg Neuts % (Manual) Baso # (Auto) Lymphocytes % (Manual) Monocytes % (Manual) Eosinophils % (Manual) Basophils % (Manual) Seg Neutrophils # Seg Neutrophils # Man Lymphocytes # (Manual) Monocytes # (Manual) Eosinophils # (Manual) Nucleated RBC % Basophils # (Manual) PT INR APTT Heparin Anti-Xa Level ABG pH POC ABG pO2 ABG pO2 ABG HCO3 ABG O2 Saturation ABG Base Excess POC ABG pCO2 ABG Hemoglobin ABG Oxyhemoglobin ABG Chloride ABG Glucose Oxyhemoglobin Sodium Potassium Chloride Carbon Dioxide BUN Creatinine Glucose POC Glucose 158 H 150 H Lactic Acid Calcium Phosphorus Magnesium AST ALT Lactate Dehydrogenase Total Bilirubin Direct Bilirubin CK-MB (CK-2) C-Reactive Protein NT-Pro-B Natriuret Pep Total Protein Albumin Arterial Blood Glucose Urine WBC (Auto) Urine Creatinine 12/18/19 12/18/19 12/18/19 05:17 05:49 11:12 WBC RBC Hgb Hct MCHC RDW MCV MCH Lymph % (Auto) [place] % (Auto) [place] # Eos # Lymph # (Auto) [place] # (Auto) Eos # (Auto) Seg Neutrophils % Seg Neuts % (Manual) Baso # (Auto) Lymphocytes % (Manual) Monocytes % (Manual) Eosinophils % (Manual) Basophils % (Manual) Seg Neutrophils # Seg Neutrophils # Man Lymphocytes # (Manual) Monocytes # (Manual) Eosinophils # (Manual) Nucleated RBC % Basophils # (Manual) PT INR APTT Heparin Anti-Xa Level 0.16 L ABG pH POC ABG pO2 ABG pO2 ABG HCO3 ABG O2 Saturation ABG Base Excess POC ABG pCO2 ABG Hemoglobin ABG Oxyhemoglobin ABG Chloride ABG Glucose Oxyhemoglobin Sodium Potassium Chloride Carbon Dioxide BUN Creatinine Glucose POC Glucose 127 H 191 H Lactic Acid Calcium Phosphorus Magnesium AST ALT Lactate Dehydrogenase Total Bilirubin Direct Bilirubin CK-MB (CK-2) C-Reactive Protein NT-Pro-B Natriuret Pep Total Protein Albumin Arterial Blood Glucose Urine WBC (Auto) Urine Creatinine 12/18/19 12/18/19 12/19/19 17:03 20:16 00:08 WBC RBC Hgb Hct MCHC RDW MCV MCH Lymph % (Auto) [place] % (Auto) [place] # Eos # Lymph # (Auto) [place] # (Auto) Eos # (Auto) Seg Neutrophils % Seg Neuts % (Manual) Baso # (Auto) Lymphocytes % (Manual) Monocytes % (Manual) Eosinophils % (Manual) Basophils % (Manual) Seg Neutrophils # Seg Neutrophils # Man Lymphocytes # (Manual) Monocytes # (Manual) Eosinophils # (Manual) Nucleated RBC % Basophils # (Manual) PT INR APTT Heparin Anti-Xa Level ABG pH POC ABG pO2 ABG pO2 ABG HCO3 ABG O2 Saturation ABG Base Excess POC ABG pCO2 ABG Hemoglobin ABG Oxyhemoglobin ABG Chloride ABG Glucose Oxyhemoglobin Sodium Potassium Chloride Carbon Dioxide BUN Creatinine Glucose POC Glucose 133 H 128 H 129 H Lactic Acid Calcium Phosphorus Magnesium AST ALT Lactate Dehydrogenase Total Bilirubin Direct Bilirubin CK-MB (CK-2) C-Reactive Protein NT-Pro-B Natriuret Pep Total Protein Albumin Arterial Blood Glucose Urine WBC (Auto) Urine Creatinine 12/19/19 12/19/19 12/19/19 04:45 04:45 05:35 WBC RBC Hgb Hct MCHC RDW MCV MCH Lymph % (Auto) [place] % (Auto) [place] # Eos # Lymph # (Auto) [place] # (Auto) Eos # (Auto) Seg Neutrophils % Seg Neuts % (Manual) Baso # (Auto) Lymphocytes % (Manual) Monocytes % (Manual) Eosinophils % (Manual) Basophils % (Manual) Seg Neutrophils # Seg Neutrophils # Man Lymphocytes # (Manual) Monocytes # (Manual) Eosinophils # (Manual) Nucleated RBC % Basophils # (Manual) PT INR APTT Heparin Anti-Xa Level 0.17 L ABG pH POC ABG pO2 ABG pO2 ABG HCO3 ABG O2 Saturation ABG Base Excess POC ABG pCO2 ABG Hemoglobin ABG Oxyhemoglobin ABG Chloride ABG Glucose Oxyhemoglobin Sodium Potassium Chloride Carbon Dioxide BUN Creatinine Glucose POC Glucose 120 H Lactic Acid Calcium Phosphorus Magnesium AST ALT Lactate Dehydrogenase 228 H Total Bilirubin Direct Bilirubin CK-MB (CK-2) C-Reactive Protein NT-Pro-B Natriuret Pep Total Protein Albumin Arterial Blood Glucose Urine WBC (Auto) Urine Creatinine 12/19/19 12/19/19 12/19/19 09:20 11:32 11:32 WBC 14.6 H RBC 3.08 L Hgb 9.0 L Hct 26.8 L MCHC RDW 15.9 H MCV MCH Lymph % (Auto) [place] % (Auto) [place] # Eos # Lymph # (Auto) [place] # (Auto) Eos # (Auto) Seg Neutrophils % Seg Neuts % (Manual) 82.0 H Baso # (Auto) Lymphocytes % (Manual) 10.0 L Monocytes % (Manual) Eosinophils % (Manual) Basophils % (Manual) Seg Neutrophils # Seg Neutrophils # Man 12.0 H Lymphocytes # (Manual) Monocytes # (Manual) 0.9 H Eosinophils # (Manual) Nucleated RBC % 1.0 H Basophils # (Manual) PT INR APTT Heparin Anti-Xa Level ABG pH 7.451 H POC ABG pO2 ABG pO2 62.6 L ABG HCO3 33.2 H ABG O2 Saturation 93.8 L ABG Base Excess 8.3 H POC ABG pCO2 ABG Hemoglobin 8.3 L ABG Oxyhemoglobin ABG Chloride ABG Glucose Oxyhemoglobin 91.9 L Sodium Potassium Chloride 95.0 L Carbon Dioxide 33 H BUN 22 H Creatinine 0.6 L Glucose 150 H POC Glucose Lactic Acid Calcium Phosphorus Magnesium AST ALT Lactate Dehydrogenase Total Bilirubin Direct Bilirubin CK-MB (CK-2) C-Reactive Protein NT-Pro-B Natriuret Pep Total Protein 6.2 L Albumin 2.4 L Arterial Blood Glucose Urine WBC (Auto) Urine Creatinine 12/19/19 12/19/19 12/20/19 11:56 18:17 00:09 WBC RBC Hgb Hct MCHC RDW MCV MCH Lymph % (Auto) [place] % (Auto) [place] # Eos # Lymph # (Auto) [place] # (Auto) Eos # (Auto) Seg Neutrophils % Seg Neuts % (Manual) Baso # (Auto) Lymphocytes % (Manual) Monocytes % (Manual) Eosinophils % (Manual) Basophils % (Manual) Seg Neutrophils # Seg Neutrophils # Man Lymphocytes # (Manual) Monocytes # (Manual) Eosinophils # (Manual) Nucleated RBC % Basophils # (Manual) PT INR APTT Heparin Anti-Xa Level ABG pH POC ABG pO2 ABG pO2 ABG HCO3 ABG O2 Saturation ABG Base Excess POC ABG pCO2 ABG Hemoglobin ABG Oxyhemoglobin ABG Chloride ABG Glucose Oxyhemoglobin Sodium Potassium Chloride Carbon Dioxide BUN Creatinine Glucose POC Glucose 156 H 156 H 155 H Lactic Acid Calcium Phosphorus Magnesium AST ALT Lactate Dehydrogenase Total Bilirubin Direct Bilirubin CK-MB (CK-2) C-Reactive Protein NT-Pro-B Natriuret Pep Total Protein Albumin Arterial Blood Glucose Urine WBC (Auto) Urine Creatinine 12/20/19 12/20/19 12/20/19 05:26 06:02 18:17 WBC RBC Hgb Hct MCHC RDW MCV MCH Lymph % (Auto) [place] % (Auto) [place] # Eos # Lymph # (Auto) [place] # (Auto) Eos # (Auto) Seg Neutrophils % Seg Neuts % (Manual) Baso # (Auto) Lymphocytes % (Manual) Monocytes % (Manual) Eosinophils % (Manual) Basophils % (Manual) Seg Neutrophils # Seg Neutrophils # Man Lymphocytes # (Manual) Monocytes # (Manual) Eosinophils # (Manual) Nucleated RBC % Basophils # (Manual) PT INR APTT Heparin Anti-Xa Level 0.19 L ABG pH POC ABG pO2 ABG pO2 ABG HCO3 ABG O2 Saturation ABG Base Excess POC ABG pCO2 ABG Hemoglobin ABG Oxyhemoglobin ABG Chloride ABG Glucose Oxyhemoglobin Sodium Potassium Chloride Carbon Dioxide BUN Creatinine Glucose POC Glucose 137 H 128 H Lactic Acid Calcium Phosphorus Magnesium AST ALT Lactate Dehydrogenase Total Bilirubin Direct Bilirubin CK-MB (CK-2) C-Reactive Protein NT-Pro-B Natriuret Pep Total Protein Albumin Arterial Blood Glucose Urine WBC (Auto) Urine Creatinine 12/20/19 12/21/19 12/21/19 23:34 05:31 05:31 WBC 12.7 H RBC 3.09 L Hgb 8.9 L Hct 27.4 L MCHC RDW 15.8 H MCV MCH Lymph % (Auto) 12.1 L [place] % (Auto) 7.8 H [place] # Eos # Lymph # (Auto) [place] # (Auto) 1.0 H Eos # (Auto) Seg Neutrophils % 77.1 H Seg Neuts % (Manual) Baso # (Auto) Lymphocytes % (Manual) Monocytes % (Manual) Eosinophils % (Manual) Basophils % (Manual) Seg Neutrophils # 9.8 H Seg Neutrophils # Man Lymphocytes # (Manual) Monocytes # (Manual) Eosinophils # (Manual) Nucleated RBC % Basophils # (Manual) PT INR APTT Heparin Anti-Xa Level ABG pH POC ABG pO2 ABG pO2 ABG HCO3 ABG O2 Saturation ABG Base Excess POC ABG pCO2 ABG Hemoglobin ABG Oxyhemoglobin ABG Chloride ABG Glucose Oxyhemoglobin Sodium Potassium Chloride 96.9 L Carbon Dioxide 37 H BUN 27 H Creatinine 0.7 L Glucose 140 H POC Glucose 145 H Lactic Acid Calcium Phosphorus Magnesium AST ALT Lactate Dehydrogenase Total Bilirubin Direct Bilirubin CK-MB (CK-2) C-Reactive Protein NT-Pro-B Natriuret Pep Total Protein Albumin Arterial Blood Glucose Urine WBC (Auto) Urine Creatinine 12/21/19 12/21/19 12/21/19 05:38 10:13 11:51 WBC RBC Hgb Hct MCHC RDW MCV MCH Lymph % (Auto) [place] % (Auto) [place] # Eos # Lymph # (Auto) [place] # (Auto) Eos # (Auto) Seg Neutrophils % Seg Neuts % (Manual) Baso # (Auto) Lymphocytes % (Manual) Monocytes % (Manual) Eosinophils % (Manual) Basophils % (Manual) Seg Neutrophils # Seg Neutrophils # Man Lymphocytes # (Manual) Monocytes # (Manual) Eosinophils # (Manual) Nucleated RBC % Basophils # (Manual) PT INR APTT 23.9 L Heparin Anti-Xa Level < 0.10 L ABG pH POC ABG pO2 ABG pO2 ABG HCO3 ABG O2 Saturation ABG Base Excess POC ABG pCO2 ABG Hemoglobin ABG Oxyhemoglobin ABG Chloride ABG Glucose Oxyhemoglobin Sodium Potassium Chloride Carbon Dioxide BUN Creatinine Glucose POC Glucose 151 H 145 H Lactic Acid Calcium Phosphorus Magnesium AST ALT Lactate Dehydrogenase Total Bilirubin Direct Bilirubin CK-MB (CK-2) C-Reactive Protein NT-Pro-B Natriuret Pep Total Protein Albumin Arterial Blood Glucose Urine WBC (Auto) Urine Creatinine 12/21/19 12/22/19 12/22/19 17:16 00:01 01:33 WBC RBC Hgb Hct MCHC RDW MCV MCH Lymph % (Auto) [place] % (Auto) [place] # Eos # Lymph # (Auto) [place] # (Auto) Eos # (Auto) Seg Neutrophils % Seg Neuts % (Manual) Baso # (Auto) Lymphocytes % (Manual) Monocytes % (Manual) Eosinophils % (Manual) Basophils % (Manual) Seg Neutrophils # Seg Neutrophils # Man Lymphocytes # (Manual) Monocytes # (Manual) Eosinophils # (Manual) Nucleated RBC % Basophils # (Manual) PT INR APTT Heparin Anti-Xa Level 0.10 L ABG pH POC ABG pO2 ABG pO2 ABG HCO3 ABG O2 Saturation ABG Base Excess POC ABG pCO2 ABG Hemoglobin ABG Oxyhemoglobin ABG Chloride ABG Glucose Oxyhemoglobin Sodium Potassium Chloride Carbon Dioxide BUN Creatinine Glucose POC Glucose 167 H 179 H Lactic Acid Calcium Phosphorus Magnesium AST ALT Lactate Dehydrogenase Total Bilirubin Direct Bilirubin CK-MB (CK-2) C-Reactive Protein NT-Pro-B Natriuret Pep Total Protein Albumin Arterial Blood Glucose Urine WBC (Auto) Urine Creatinine 12/22/19 12/22/19 12/22/19 03:22 05:10 05:10 WBC 13.8 H RBC 3.20 L Hgb 8.9 L Hct 28.1 L MCHC RDW 15.9 H MCV MCH Lymph % (Auto) [place] % (Auto) [place] # Eos # Lymph # (Auto) [place] # (Auto) Eos # (Auto) Seg Neutrophils % Seg Neuts % (Manual) Baso # (Auto) Lymphocytes % (Manual) Monocytes % (Manual) Eosinophils % (Manual) Basophils % (Manual) Seg Neutrophils # Seg Neutrophils # Man Lymphocytes # (Manual) Monocytes # (Manual) Eosinophils # (Manual) Nucleated RBC % Basophils # (Manual) PT INR APTT Heparin Anti-Xa Level ABG pH POC ABG pO2 52.3 L ABG pO2 ABG HCO3 ABG O2 Saturation ABG Base Excess POC ABG pCO2 52.9 H ABG Hemoglobin 10.7 L ABG Oxyhemoglobin 84 L ABG Chloride ABG Glucose Oxyhemoglobin Sodium Potassium Chloride 96.6 L Carbon Dioxide BUN 25 H Creatinine 0.7 L Glucose 129 H POC Glucose Lactic Acid Calcium Phosphorus Magnesium AST ALT Lactate Dehydrogenase Total Bilirubin Direct Bilirubin CK-MB (CK-2) C-Reactive Protein NT-Pro-B Natriuret Pep Total Protein Albumin Arterial Blood Glucose Urine WBC (Auto) Urine Creatinine 12/22/19 12/22/19 12/22/19 05:18 12:32 12:43 WBC RBC Hgb Hct MCHC RDW MCV MCH Lymph % (Auto) [place] % (Auto) [place] # Eos # Lymph # (Auto) [place] # (Auto) Eos # (Auto) Seg Neutrophils % Seg Neuts % (Manual) Baso # (Auto) Lymphocytes % (Manual) Monocytes % (Manual) Eosinophils % (Manual) Basophils % (Manual) Seg Neutrophils # Seg Neutrophils # Man Lymphocytes # (Manual) Monocytes # (Manual) Eosinophils # (Manual) Nucleated RBC % Basophils # (Manual) PT INR APTT Heparin Anti-Xa Level 0.18 L ABG pH POC ABG pO2 ABG pO2 ABG HCO3 ABG O2 Saturation ABG Base Excess POC ABG pCO2 ABG Hemoglobin ABG Oxyhemoglobin ABG Chloride ABG Glucose Oxyhemoglobin Sodium Potassium Chloride Carbon Dioxide BUN Creatinine Glucose POC Glucose 131 H 208 H Lactic Acid Calcium Phosphorus Magnesium AST ALT Lactate Dehydrogenase Total Bilirubin Direct Bilirubin CK-MB (CK-2) C-Reactive Protein NT-Pro-B Natriuret Pep Total Protein Albumin Arterial Blood Glucose Urine WBC (Auto) Urine Creatinine 12/22/19 12/22/19 12/23/19 17:44 23:20 03:51 WBC 15.2 H RBC 3.43 L Hgb 9.6 L Hct 30.3 L MCHC RDW 15.9 H MCV MCH Lymph % (Auto) [place] % (Auto) [place] # Eos # Lymph # (Auto) [place] # (Auto) Eos # (Auto) Seg Neutrophils % Seg Neuts % (Manual) Baso # (Auto) Lymphocytes % (Manual) Monocytes % (Manual) Eosinophils % (Manual) Basophils % (Manual) Seg Neutrophils # Seg Neutrophils # Man Lymphocytes # (Manual) Monocytes # (Manual) Eosinophils # (Manual) Nucleated RBC % Basophils # (Manual) PT INR APTT Heparin Anti-Xa Level ABG pH POC ABG pO2 ABG pO2 ABG HCO3 ABG O2 Saturation ABG Base Excess POC ABG pCO2 ABG Hemoglobin ABG Oxyhemoglobin ABG Chloride ABG Glucose Oxyhemoglobin Sodium Potassium Chloride Carbon Dioxide BUN Creatinine Glucose POC Glucose 209 H 119 H Lactic Acid Calcium Phosphorus Magnesium AST ALT Lactate Dehydrogenase Total Bilirubin Direct Bilirubin CK-MB (CK-2) C-Reactive Protein NT-Pro-B Natriuret Pep Total Protein Albumin Arterial Blood Glucose Urine WBC (Auto) Urine Creatinine 12/23/19 12/23/19 12/23/19 03:51 05:31 12:09 WBC RBC Hgb Hct MCHC RDW MCV MCH Lymph % (Auto) [place] % (Auto) [place] # Eos # Lymph # (Auto) [place] # (Auto) Eos # (Auto) Seg Neutrophils % Seg Neuts % (Manual) Baso # (Auto) Lymphocytes % (Manual) Monocytes % (Manual) Eosinophils % (Manual) Basophils % (Manual) Seg Neutrophils # Seg Neutrophils # Man Lymphocytes # (Manual) Monocytes # (Manual) Eosinophils # (Manual) Nucleated RBC % Basophils # (Manual) PT INR APTT Heparin Anti-Xa Level ABG pH POC ABG pO2 ABG pO2 ABG HCO3 ABG O2 Saturation ABG Base Excess POC ABG pCO2 ABG Hemoglobin ABG Oxyhemoglobin ABG Chloride ABG Glucose Oxyhemoglobin Sodium Potassium Chloride 97.2 L Carbon Dioxide 31 H BUN 23 H Creatinine 0.6 L Glucose 153 H POC Glucose 149 H 144 H Lactic Acid Calcium Phosphorus Magnesium AST ALT Lactate Dehydrogenase Total Bilirubin Direct Bilirubin CK-MB (CK-2) C-Reactive Protein NT-Pro-B Natriuret Pep Total Protein Albumin Arterial Blood Glucose Urine WBC (Auto) Urine Creatinine 12/23/19 12/23/19 12/23/19 15:30 17:49 23:31 WBC RBC Hgb Hct MCHC RDW MCV MCH Lymph % (Auto) [place] % (Auto) [place] # Eos # Lymph # (Auto) [place] # (Auto) Eos # (Auto) Seg Neutrophils % Seg Neuts % (Manual) Baso # (Auto) Lymphocytes % (Manual) Monocytes % (Manual) Eosinophils % (Manual) Basophils % (Manual) Seg Neutrophils # Seg Neutrophils # Man Lymphocytes # (Manual) Monocytes # (Manual) Eosinophils # (Manual) Nucleated RBC % Basophils # (Manual) PT INR APTT Heparin Anti-Xa Level 0.21 L ABG pH POC ABG pO2 ABG pO2 ABG HCO3 ABG O2 Saturation ABG Base Excess POC ABG pCO2 ABG Hemoglobin ABG Oxyhemoglobin ABG Chloride ABG Glucose Oxyhemoglobin Sodium Potassium Chloride Carbon Dioxide BUN Creatinine Glucose POC Glucose 192 H 151 H Lactic Acid Calcium Phosphorus Magnesium AST ALT Lactate Dehydrogenase Total Bilirubin Direct Bilirubin CK-MB (CK-2) C-Reactive Protein NT-Pro-B Natriuret Pep Total Protein Albumin Arterial Blood Glucose Urine WBC (Auto) Urine Creatinine 12/24/19 12/24/19 12/24/19 05:34 12:13 16:50 WBC RBC Hgb Hct MCHC RDW MCV MCH Lymph % (Auto) [place] % (Auto) [place] # Eos # Lymph # (Auto) [place] # (Auto) Eos # (Auto) Seg Neutrophils % Seg Neuts % (Manual) Baso # (Auto) Lymphocytes % (Manual) Monocytes % (Manual) Eosinophils % (Manual) Basophils % (Manual) Seg Neutrophils # Seg Neutrophils # Man Lymphocytes # (Manual) Monocytes # (Manual) Eosinophils # (Manual) Nucleated RBC % Basophils # (Manual) PT INR APTT Heparin Anti-Xa Level 0.16 L ABG pH POC ABG pO2 ABG pO2 ABG HCO3 ABG O2 Saturation ABG Base Excess POC ABG pCO2 ABG Hemoglobin ABG Oxyhemoglobin ABG Chloride ABG Glucose Oxyhemoglobin Sodium Potassium Chloride Carbon Dioxide BUN Creatinine Glucose POC Glucose 145 H 124 H Lactic Acid Calcium Phosphorus Magnesium AST ALT Lactate Dehydrogenase Total Bilirubin Direct Bilirubin CK-MB (CK-2) C-Reactive Protein NT-Pro-B Natriuret Pep Total Protein Albumin Arterial Blood Glucose Urine WBC (Auto) Urine Creatinine 12/24/19 12/25/19 12/25/19 17:53 00:14 04:18 WBC 12.9 H RBC 3.30 L Hgb 9.1 L Hct 28.8 L MCHC RDW 16.4 H MCV MCH Lymph % (Auto) [place] % (Auto) 7.8 H [place] # Eos # Lymph # (Auto) [place] # (Auto) 1.0 H Eos # (Auto) Seg Neutrophils % 75.5 H Seg Neuts % (Manual) Baso # (Auto) Lymphocytes % (Manual) Monocytes % (Manual) Eosinophils % (Manual) Basophils % (Manual) Seg Neutrophils # 9.7 H Seg Neutrophils # Man Lymphocytes # (Manual) Monocytes # (Manual) Eosinophils # (Manual) Nucleated RBC % Basophils # (Manual) PT INR APTT Heparin Anti-Xa Level ABG pH POC ABG pO2 ABG pO2 ABG HCO3 ABG O2 Saturation ABG Base Excess POC ABG pCO2 ABG Hemoglobin ABG Oxyhemoglobin ABG Chloride ABG Glucose Oxyhemoglobin Sodium Potassium Chloride Carbon Dioxide BUN Creatinine Glucose POC Glucose 164 H 148 H Lactic Acid Calcium Phosphorus Magnesium AST ALT Lactate Dehydrogenase Total Bilirubin Direct Bilirubin CK-MB (CK-2) C-Reactive Protein NT-Pro-B Natriuret Pep Total Protein Albumin Arterial Blood Glucose Urine WBC (Auto) Urine Creatinine 12/25/19 12/25/19 12/25/19 04:18 05:38 11:44 WBC RBC Hgb Hct MCHC RDW MCV MCH Lymph % (Auto) [place] % (Auto) [place] # Eos # Lymph # (Auto) [place] # (Auto) Eos # (Auto) Seg Neutrophils % Seg Neuts % (Manual) Baso # (Auto) Lymphocytes % (Manual) Monocytes % (Manual) Eosinophils % (Manual) Basophils % (Manual) Seg Neutrophils # Seg Neutrophils # Man Lymphocytes # (Manual) Monocytes # (Manual) Eosinophils # (Manual) Nucleated RBC % Basophils # (Manual) PT INR APTT Heparin Anti-Xa Level ABG pH POC ABG pO2 ABG pO2 ABG HCO3 ABG O2 Saturation ABG Base Excess POC ABG pCO2 ABG Hemoglobin ABG Oxyhemoglobin ABG Chloride ABG Glucose Oxyhemoglobin Sodium Potassium Chloride Carbon Dioxide 33 H BUN 27 H Creatinine 0.6 L Glucose 132 H POC Glucose 152 H 166 H Lactic Acid Calcium Phosphorus Magnesium AST ALT Lactate Dehydrogenase Total Bilirubin Direct Bilirubin CK-MB (CK-2) C-Reactive Protein NT-Pro-B Natriuret Pep Total Protein Albumin Arterial Blood Glucose Urine WBC (Auto) Urine Creatinine 12/25/19 12/26/19 12/26/19 18:29 00:17 00:18 WBC RBC Hgb Hct MCHC RDW MCV MCH Lymph % (Auto) [place] % (Auto) [place] # Eos # Lymph # (Auto) [place] # (Auto) Eos # (Auto) Seg Neutrophils % Seg Neuts % (Manual) Baso # (Auto) Lymphocytes % (Manual) Monocytes % (Manual) Eosinophils % (Manual) Basophils % (Manual) Seg Neutrophils # Seg Neutrophils # Man Lymphocytes # (Manual) Monocytes # (Manual) Eosinophils # (Manual) Nucleated RBC % Basophils # (Manual) PT INR APTT Heparin Anti-Xa Level ABG pH POC ABG pO2 ABG pO2 ABG HCO3 ABG O2 Saturation ABG Base Excess POC ABG pCO2 ABG Hemoglobin ABG Oxyhemoglobin ABG Chloride ABG Glucose Oxyhemoglobin Sodium Potassium Chloride 97.8 L Carbon Dioxide BUN 25 H Creatinine 0.6 L Glucose 140 H POC Glucose 194 H 151 H Lactic Acid Calcium Phosphorus Magnesium AST ALT Lactate Dehydrogenase Total Bilirubin Direct Bilirubin CK-MB (CK-2) C-Reactive Protein NT-Pro-B Natriuret Pep Total Protein Albumin Arterial Blood Glucose Urine WBC (Auto) Urine Creatinine 12/26/19 12/26/19 12/26/19 05:36 11:41 17:50 WBC RBC Hgb Hct MCHC RDW MCV MCH Lymph % (Auto) [place] % (Auto) [place] # Eos # Lymph # (Auto) [place] # (Auto) Eos # (Auto) Seg Neutrophils % Seg Neuts % (Manual) Baso # (Auto) Lymphocytes % (Manual) Monocytes % (Manual) Eosinophils % (Manual) Basophils % (Manual) Seg Neutrophils # Seg Neutrophils # Man Lymphocytes # (Manual) Monocytes # (Manual) Eosinophils # (Manual) Nucleated RBC % Basophils # (Manual) PT INR APTT Heparin Anti-Xa Level ABG pH POC ABG pO2 ABG pO2 ABG HCO3 ABG O2 Saturation ABG Base Excess POC ABG pCO2 ABG Hemoglobin ABG Oxyhemoglobin ABG Chloride ABG Glucose Oxyhemoglobin Sodium Potassium Chloride Carbon Dioxide BUN Creatinine Glucose POC Glucose 156 H 148 H 139 H Lactic Acid Calcium Phosphorus Magnesium AST ALT Lactate Dehydrogenase Total Bilirubin Direct Bilirubin CK-MB (CK-2) C-Reactive Protein NT-Pro-B Natriuret Pep Total Protein Albumin Arterial Blood Glucose Urine WBC (Auto) Urine Creatinine 12/26/19 12/27/19 12/27/19 23:19 05:34 12:02 WBC RBC Hgb Hct MCHC RDW MCV MCH Lymph % (Auto) [place] % (Auto) [place] # Eos # Lymph # (Auto) [place] # (Auto) Eos # (Auto) Seg Neutrophils % Seg Neuts % (Manual) Baso # (Auto) Lymphocytes % (Manual) Monocytes % (Manual) Eosinophils % (Manual) Basophils % (Manual) Seg Neutrophils # Seg Neutrophils # Man Lymphocytes # (Manual) Monocytes # (Manual) Eosinophils # (Manual) Nucleated RBC % Basophils # (Manual) PT INR APTT Heparin Anti-Xa Level ABG pH POC ABG pO2 ABG pO2 ABG HCO3 ABG O2 Saturation ABG Base Excess POC ABG pCO2 ABG Hemoglobin ABG Oxyhemoglobin ABG Chloride ABG Glucose Oxyhemoglobin Sodium Potassium Chloride Carbon Dioxide BUN Creatinine Glucose POC Glucose 161 H 145 H 157 H Lactic Acid Calcium Phosphorus Magnesium AST ALT Lactate Dehydrogenase Total Bilirubin Direct Bilirubin CK-MB (CK-2) C-Reactive Protein NT-Pro-B Natriuret Pep Total Protein Albumin Arterial Blood Glucose Urine WBC (Auto) Urine Creatinine 12/27/19 12/27/19 12/27/19 17:35 20:11 23:00 WBC RBC Hgb Hct MCHC RDW MCV MCH Lymph % (Auto) [place] % (Auto) [place] # Eos # Lymph # (Auto) [place] # (Auto) Eos # (Auto) Seg Neutrophils % Seg Neuts % (Manual) Baso # (Auto) Lymphocytes % (Manual) Monocytes % (Manual) Eosinophils % (Manual) Basophils % (Manual) Seg Neutrophils # Seg Neutrophils # Man Lymphocytes # (Manual) Monocytes # (Manual) Eosinophils # (Manual) Nucleated RBC % Basophils # (Manual) PT INR APTT Heparin Anti-Xa Level 0.19 L ABG pH POC ABG pO2 ABG pO2 ABG HCO3 ABG O2 Saturation ABG Base Excess POC ABG pCO2 ABG Hemoglobin ABG Oxyhemoglobin ABG Chloride ABG Glucose Oxyhemoglobin Sodium Potassium Chloride Carbon Dioxide BUN Creatinine Glucose POC Glucose 158 H 155 H Lactic Acid Calcium Phosphorus Magnesium AST ALT Lactate Dehydrogenase Total Bilirubin Direct Bilirubin CK-MB (CK-2) C-Reactive Protein NT-Pro-B Natriuret Pep Total Protein Albumin Arterial Blood Glucose Urine WBC (Auto) Urine Creatinine 12/27/19 12/28/19 12/28/19 23:45 02:41 02:41 WBC 13.0 H RBC 3.48 L Hgb 9.5 L Hct 30.6 L MCHC 31 L RDW 16.6 H MCV MCH 27 L Lymph % (Auto) 13.0 L [place] % (Auto) 8.0 H [place] # Eos # Lymph # (Auto) [place] # (Auto) 1.0 H Eos # (Auto) Seg Neutrophils % 76.3 H Seg Neuts % (Manual) Baso # (Auto) Lymphocytes % (Manual) Monocytes % (Manual) Eosinophils % (Manual) Basophils % (Manual) Seg Neutrophils # 9.9 H Seg Neutrophils # Man Lymphocytes # (Manual) Monocytes # (Manual) Eosinophils # (Manual) Nucleated RBC % Basophils # (Manual) PT INR APTT Heparin Anti-Xa Level ABG pH POC ABG pO2 ABG pO2 ABG HCO3 ABG O2 Saturation ABG Base Excess POC ABG pCO2 ABG Hemoglobin ABG Oxyhemoglobin ABG Chloride ABG Glucose Oxyhemoglobin Sodium Potassium Chloride Carbon Dioxide BUN 22 H Creatinine 0.6 L Glucose 101 H POC Glucose 130 H Lactic Acid Calcium Phosphorus Magnesium AST ALT Lactate Dehydrogenase Total Bilirubin Direct Bilirubin CK-MB (CK-2) C-Reactive Protein NT-Pro-B Natriuret Pep Total Protein Albumin Arterial Blood Glucose Urine WBC (Auto) Urine Creatinine 12/28/19 12/28/19 12/28/19 06:00 12:34 18:13 WBC RBC Hgb Hct MCHC RDW MCV MCH Lymph % (Auto) [place] % (Auto) [place] # Eos # Lymph # (Auto) [place] # (Auto) Eos # (Auto) Seg Neutrophils % Seg Neuts % (Manual) Baso # (Auto) Lymphocytes % (Manual) Monocytes % (Manual) Eosinophils % (Manual) Basophils % (Manual) Seg Neutrophils # Seg Neutrophils # Man Lymphocytes # (Manual) Monocytes # (Manual) Eosinophils # (Manual) Nucleated RBC % Basophils # (Manual) PT INR APTT Heparin Anti-Xa Level ABG pH POC ABG pO2 ABG pO2 ABG HCO3 ABG O2 Saturation ABG Base Excess POC ABG pCO2 ABG Hemoglobin ABG Oxyhemoglobin ABG Chloride ABG Glucose Oxyhemoglobin Sodium Potassium Chloride Carbon Dioxide BUN Creatinine Glucose POC Glucose 150 H 161 H 128 H Lactic Acid Calcium Phosphorus Magnesium AST ALT Lactate Dehydrogenase Total Bilirubin Direct Bilirubin CK-MB (CK-2) C-Reactive Protein NT-Pro-B Natriuret Pep Total Protein Albumin Arterial Blood Glucose Urine WBC (Auto) Urine Creatinine 12/28/19 12/29/19 12/29/19 23:36 05:21 11:40 WBC RBC Hgb Hct MCHC RDW MCV MCH Lymph % (Auto) [place] % (Auto) [place] # Eos # Lymph # (Auto) [place] # (Auto) Eos # (Auto) Seg Neutrophils % Seg Neuts % (Manual) Baso # (Auto) Lymphocytes % (Manual) Monocytes % (Manual) Eosinophils % (Manual) Basophils % (Manual) Seg Neutrophils # Seg Neutrophils # Man Lymphocytes # (Manual) Monocytes # (Manual) Eosinophils # (Manual) Nucleated RBC % Basophils # (Manual) PT INR APTT Heparin Anti-Xa Level ABG pH POC ABG pO2 ABG pO2 ABG HCO3 ABG O2 Saturation ABG Base Excess POC ABG pCO2 ABG Hemoglobin ABG Oxyhemoglobin ABG Chloride ABG Glucose Oxyhemoglobin Sodium Potassium Chloride Carbon Dioxide BUN Creatinine Glucose POC Glucose 137 H 136 H 166 H Lactic Acid Calcium Phosphorus Magnesium AST ALT Lactate Dehydrogenase Total Bilirubin Direct Bilirubin CK-MB (CK-2) C-Reactive Protein NT-Pro-B Natriuret Pep Total Protein Albumin Arterial Blood Glucose Urine WBC (Auto) Urine Creatinine 12/29/19 12/29/19 12/29/19 17:23 19:21 23:38 WBC RBC Hgb Hct MCHC RDW MCV MCH Lymph % (Auto) [place] % (Auto) [place] # Eos # Lymph # (Auto) [place] # (Auto) Eos # (Auto) Seg Neutrophils % Seg Neuts % (Manual) Baso # (Auto) Lymphocytes % (Manual) Monocytes % (Manual) Eosinophils % (Manual) Basophils % (Manual) Seg Neutrophils # Seg Neutrophils # Man Lymphocytes # (Manual) Monocytes # (Manual) Eosinophils # (Manual) Nucleated RBC % Basophils # (Manual) PT INR APTT Heparin Anti-Xa Level 0.20 L ABG pH POC ABG pO2 ABG pO2 ABG HCO3 ABG O2 Saturation ABG Base Excess POC ABG pCO2 ABG Hemoglobin ABG Oxyhemoglobin ABG Chloride ABG Glucose Oxyhemoglobin Sodium Potassium Chloride Carbon Dioxide BUN Creatinine Glucose POC Glucose 144 H 141 H Lactic Acid Calcium Phosphorus Magnesium AST ALT Lactate Dehydrogenase Total Bilirubin Direct Bilirubin CK-MB (CK-2) C-Reactive Protein NT-Pro-B Natriuret Pep Total Protein Albumin Arterial Blood Glucose Urine WBC (Auto) Urine Creatinine 12/30/19 12/30/19 12/30/19 03:58 03:58 04:59 WBC RBC 3.54 L Hgb 9.8 L Hct 30.7 L MCHC RDW 16.8 H MCV MCH Lymph % (Auto) [place] % (Auto) [place] # Eos # Lymph # (Auto) [place] # (Auto) Eos # (Auto) Seg Neutrophils % Seg Neuts % (Manual) Baso # (Auto) Lymphocytes % (Manual) Monocytes % (Manual) Eosinophils % (Manual) Basophils % (Manual) Seg Neutrophils # Seg Neutrophils # Man Lymphocytes # (Manual) Monocytes # (Manual) Eosinophils # (Manual) Nucleated RBC % Basophils # (Manual) PT INR APTT Heparin Anti-Xa Level ABG pH POC ABG pO2 ABG pO2 ABG HCO3 29.8 H ABG O2 Saturation ABG Base Excess 4.8 H POC ABG pCO2 ABG Hemoglobin 11.2 L ABG Oxyhemoglobin ABG Chloride ABG Glucose Oxyhemoglobin 93.8 L Sodium Potassium Chloride 97.8 L Carbon Dioxide BUN 26 H Creatinine Glucose 168 H POC Glucose Lactic Acid Calcium Phosphorus Magnesium AST ALT Lactate Dehydrogenase Total Bilirubin Direct Bilirubin CK-MB (CK-2) C-Reactive Protein NT-Pro-B Natriuret Pep Total Protein Albumin Arterial Blood Glucose Urine WBC (Auto) Urine Creatinine 12/30/19 12/30/19 12/30/19 05:45 11:34 17:28 WBC RBC Hgb Hct MCHC RDW MCV MCH Lymph % (Auto) [place] % (Auto) [place] # Eos # Lymph # (Auto) [place] # (Auto) Eos # (Auto) Seg Neutrophils % Seg Neuts % (Manual) Baso # (Auto) Lymphocytes % (Manual) Monocytes % (Manual) Eosinophils % (Manual) Basophils % (Manual) Seg Neutrophils # Seg Neutrophils # Man Lymphocytes # (Manual) Monocytes # (Manual) Eosinophils # (Manual) Nucleated RBC % Basophils # (Manual) PT INR APTT Heparin Anti-Xa Level ABG pH POC ABG pO2 ABG pO2 ABG HCO3 ABG O2 Saturation ABG Base Excess POC ABG pCO2 ABG Hemoglobin ABG Oxyhemoglobin ABG Chloride ABG Glucose Oxyhemoglobin Sodium Potassium Chloride Carbon Dioxide BUN Creatinine Glucose POC Glucose 163 H 180 H 150 H Lactic Acid Calcium Phosphorus Magnesium AST ALT Lactate Dehydrogenase Total Bilirubin Direct Bilirubin CK-MB (CK-2) C-Reactive Protein NT-Pro-B Natriuret Pep Total Protein Albumin Arterial Blood Glucose Urine WBC (Auto) Urine Creatinine 12/30/19 12/31/19 12/31/19 23:43 04:55 05:07 WBC RBC Hgb Hct MCHC RDW MCV MCH Lymph % (Auto) [place] % (Auto) [place] # Eos # Lymph # (Auto) [place] # (Auto) Eos # (Auto) Seg Neutrophils % Seg Neuts % (Manual) Baso # (Auto) Lymphocytes % (Manual) Monocytes % (Manual) Eosinophils % (Manual) Basophils % (Manual) Seg Neutrophils # Seg Neutrophils # Man Lymphocytes # (Manual) Monocytes # (Manual) Eosinophils # (Manual) Nucleated RBC % Basophils # (Manual) PT INR APTT Heparin Anti-Xa Level ABG pH POC ABG pO2 ABG pO2 ABG HCO3 ABG O2 Saturation ABG Base Excess POC ABG pCO2 ABG Hemoglobin ABG Oxyhemoglobin ABG Chloride ABG Glucose Oxyhemoglobin Sodium Potassium 5.6 H D Chloride Carbon Dioxide BUN 33 H Creatinine Glucose 131 H POC Glucose 142 H 134 H Lactic Acid Calcium Phosphorus Magnesium AST ALT Lactate Dehydrogenase Total Bilirubin Direct Bilirubin CK-MB (CK-2) C-Reactive Protein NT-Pro-B Natriuret Pep Total Protein Albumin Arterial Blood Glucose Urine WBC (Auto) Urine Creatinine 12/31/19 12/31/19 12/31/19 11:30 17:19 17:36 WBC RBC Hgb Hct MCHC RDW MCV MCH Lymph % (Auto) [place] % (Auto) [place] # Eos # Lymph # (Auto) [place] # (Auto) Eos # (Auto) Seg Neutrophils % Seg Neuts % (Manual) Baso # (Auto) Lymphocytes % (Manual) Monocytes % (Manual) Eosinophils % (Manual) Basophils % (Manual) Seg Neutrophils # Seg Neutrophils # Man Lymphocytes # (Manual) Monocytes # (Manual) Eosinophils # (Manual) Nucleated RBC % Basophils # (Manual) PT INR APTT Heparin Anti-Xa Level ABG pH POC ABG pO2 ABG pO2 ABG HCO3 ABG O2 Saturation ABG Base Excess POC ABG pCO2 ABG Hemoglobin ABG Oxyhemoglobin ABG Chloride ABG Glucose Oxyhemoglobin Sodium Potassium Chloride Carbon Dioxide BUN 35 H Creatinine Glucose 156 H POC Glucose 158 H 181 H Lactic Acid Calcium Phosphorus Magnesium AST ALT Lactate Dehydrogenase Total Bilirubin Direct Bilirubin CK-MB (CK-2) C-Reactive Protein NT-Pro-B Natriuret Pep Total Protein Albumin Arterial Blood Glucose Urine WBC (Auto) Urine Creatinine 12/31/19 12/31/19 12/31/19 18:16 19:41 21:53 WBC RBC Hgb Hct MCHC RDW MCV MCH Lymph % (Auto) [place] % (Auto) [place] # Eos # Lymph # (Auto) [place] # (Auto) Eos # (Auto) Seg Neutrophils % Seg Neuts % (Manual) Baso # (Auto) Lymphocytes % (Manual) Monocytes % (Manual) Eosinophils % (Manual) Basophils % (Manual) Seg Neutrophils # Seg Neutrophils # Man Lymphocytes # (Manual) Monocytes # (Manual) Eosinophils # (Manual) Nucleated RBC % Basophils # (Manual) PT INR APTT Heparin Anti-Xa Level 0.20 L ABG pH POC ABG pO2 ABG pO2 ABG HCO3 ABG O2 Saturation ABG Base Excess POC ABG pCO2 ABG Hemoglobin ABG Oxyhemoglobin ABG Chloride ABG Glucose Oxyhemoglobin Sodium Potassium Chloride Carbon Dioxide BUN 34 H Creatinine Glucose 169 H POC Glucose 141 H Lactic Acid Calcium Phosphorus Magnesium AST ALT Lactate Dehydrogenase Total Bilirubin Direct Bilirubin CK-MB (CK-2) C-Reactive Protein NT-Pro-B Natriuret Pep Total Protein Albumin Arterial Blood Glucose Urine WBC (Auto) Urine Creatinine 12/31/19 01/01/20 01/01/20 23:51 05:17 10:40 WBC RBC Hgb Hct MCHC RDW MCV MCH Lymph % (Auto) [place] % (Auto) [place] # Eos # Lymph # (Auto) [place] # (Auto) Eos # (Auto) Seg Neutrophils % Seg Neuts % (Manual) Baso # (Auto) Lymphocytes % (Manual) Monocytes % (Manual) Eosinophils % (Manual) Basophils % (Manual) Seg Neutrophils # Seg Neutrophils # Man Lymphocytes # (Manual) Monocytes # (Manual) Eosinophils # (Manual) Nucleated RBC % Basophils # (Manual) PT INR APTT Heparin Anti-Xa Level ABG pH POC ABG pO2 ABG pO2 ABG HCO3 ABG O2 Saturation ABG Base Excess POC ABG pCO2 ABG Hemoglobin ABG Oxyhemoglobin ABG Chloride ABG Glucose Oxyhemoglobin Sodium Potassium Chloride Carbon Dioxide BUN 31 H Creatinine 0.7 L Glucose 137 H POC Glucose 131 H 155 H Lactic Acid Calcium Phosphorus Magnesium AST 73 H ALT 97 H Lactate Dehydrogenase Total Bilirubin Direct Bilirubin CK-MB (CK-2) C-Reactive Protein NT-Pro-B Natriuret Pep 3866 H Total Protein Albumin 2.8 L Arterial Blood Glucose Urine WBC (Auto) Urine Creatinine 01/01/20 01/01/20 01/01/20 12:26 15:33 17:53 WBC 14.3 H RBC 3.35 L Hgb 9.1 L Hct 28.8 L MCHC RDW 17.0 H MCV MCH 27 L Lymph % (Auto) 7.0 L [place] % (Auto) 7.6 H [place] # Eos # Lymph # (Auto) 1.0 L [place] # (Auto) 1.1 H Eos # (Auto) Seg Neutrophils % 83.3 H Seg Neuts % (Manual) Baso # (Auto) Lymphocytes % (Manual) Monocytes % (Manual) Eosinophils % (Manual) Basophils % (Manual) Seg Neutrophils # 12.0 H Seg Neutrophils # Man Lymphocytes # (Manual) Monocytes # (Manual) Eosinophils # (Manual) Nucleated RBC % Basophils # (Manual) PT INR APTT Heparin Anti-Xa Level ABG pH POC ABG pO2 ABG pO2 ABG HCO3 ABG O2 Saturation ABG Base Excess POC ABG pCO2 ABG Hemoglobin ABG Oxyhemoglobin ABG Chloride ABG Glucose Oxyhemoglobin Sodium Potassium Chloride Carbon Dioxide BUN Creatinine Glucose POC Glucose 128 H 128 H Lactic Acid Calcium Phosphorus Magnesium AST ALT Lactate Dehydrogenase Total Bilirubin Direct Bilirubin CK-MB (CK-2) C-Reactive Protein NT-Pro-B Natriuret Pep Total Protein Albumin Arterial Blood Glucose Urine WBC (Auto) Urine Creatinine 01/01/20 01/02/20 01/02/20 23:04 05:39 07:00 WBC RBC Hgb Hct MCHC RDW MCV MCH Lymph % (Auto) [place] % (Auto) [place] # Eos # Lymph # (Auto) [place] # (Auto) Eos # (Auto) Seg Neutrophils % Seg Neuts % (Manual) Baso # (Auto) Lymphocytes % (Manual) Monocytes % (Manual) Eosinophils % (Manual) Basophils % (Manual) Seg Neutrophils # Seg Neutrophils # Man Lymphocytes # (Manual) Monocytes # (Manual) Eosinophils # (Manual) Nucleated RBC % Basophils # (Manual) PT INR APTT Heparin Anti-Xa Level 0.13 L ABG pH POC ABG pO2 ABG pO2 ABG HCO3 ABG O2 Saturation ABG Base Excess POC ABG pCO2 ABG Hemoglobin ABG Oxyhemoglobin ABG Chloride ABG Glucose Oxyhemoglobin Sodium Potassium Chloride Carbon Dioxide BUN Creatinine Glucose POC Glucose 120 H 169 H Lactic Acid Calcium Phosphorus Magnesium AST ALT Lactate Dehydrogenase Total Bilirubin Direct Bilirubin CK-MB (CK-2) C-Reactive Protein NT-Pro-B Natriuret Pep Total Protein Albumin Arterial Blood Glucose Urine WBC (Auto) Urine Creatinine 01/02/20 01/02/20 01/02/20 12:15 14:06 17:58 WBC RBC Hgb Hct MCHC RDW MCV MCH Lymph % (Auto) [place] % (Auto) [place] # Eos # Lymph # (Auto) [place] # (Auto) Eos # (Auto) Seg Neutrophils % Seg Neuts % (Manual) Baso # (Auto) Lymphocytes % (Manual) Monocytes % (Manual) Eosinophils % (Manual) Basophils % (Manual) Seg Neutrophils # Seg Neutrophils # Man Lymphocytes # (Manual) Monocytes # (Manual) Eosinophils # (Manual) Nucleated RBC % Basophils # (Manual) PT INR APTT Heparin Anti-Xa Level < 0.10 L ABG pH POC ABG pO2 ABG pO2 ABG HCO3 ABG O2 Saturation ABG Base Excess POC ABG pCO2 ABG Hemoglobin ABG Oxyhemoglobin ABG Chloride ABG Glucose Oxyhemoglobin Sodium Potassium Chloride Carbon Dioxide BUN Creatinine Glucose POC Glucose 190 H 198 H Lactic Acid Calcium Phosphorus Magnesium AST ALT Lactate Dehydrogenase Total Bilirubin Direct Bilirubin CK-MB (CK-2) C-Reactive Protein NT-Pro-B Natriuret Pep Total Protein Albumin Arterial Blood Glucose Urine WBC (Auto) Urine Creatinine 01/02/20 01/02/20 01/03/20 21:43 23:33 05:42 WBC RBC Hgb Hct MCHC RDW MCV MCH Lymph % (Auto) [place] % (Auto) [place] # Eos # Lymph # (Auto) [place] # (Auto) Eos # (Auto) Seg Neutrophils % Seg Neuts % (Manual) Baso # (Auto) Lymphocytes % (Manual) Monocytes % (Manual) Eosinophils % (Manual) Basophils % (Manual) Seg Neutrophils # Seg Neutrophils # Man Lymphocytes # (Manual) Monocytes # (Manual) Eosinophils # (Manual) Nucleated RBC % Basophils # (Manual) PT INR APTT Heparin Anti-Xa Level 0.10 L ABG pH POC ABG pO2 ABG pO2 ABG HCO3 ABG O2 Saturation ABG Base Excess POC ABG pCO2 ABG Hemoglobin ABG Oxyhemoglobin ABG Chloride ABG Glucose Oxyhemoglobin Sodium Potassium Chloride Carbon Dioxide BUN Creatinine Glucose POC Glucose 180 H 163 H Lactic Acid Calcium Phosphorus Magnesium AST ALT Lactate Dehydrogenase Total Bilirubin Direct Bilirubin CK-MB (CK-2) C-Reactive Protein NT-Pro-B Natriuret Pep Total Protein Albumin Arterial Blood Glucose Urine WBC (Auto) Urine Creatinine 01/03/20 01/03/20 01/03/20 06:50 07:25 07:45 WBC 12.1 H RBC 3.35 L Hgb 9.0 L Hct 28.9 L MCHC 31 L RDW 16.6 H MCV MCH 27 L Lymph % (Auto) 13.0 L [place] % (Auto) 8.6 H [place] # Eos # Lymph # (Auto) [place] # (Auto) 1.0 H Eos # (Auto) Seg Neutrophils % 75.9 H Seg Neuts % (Manual) Baso # (Auto) Lymphocytes % (Manual) Monocytes % (Manual) Eosinophils % (Manual) Basophils % (Manual) Seg Neutrophils # 9.2 H Seg Neutrophils # Man Lymphocytes # (Manual) Monocytes # (Manual) Eosinophils # (Manual) Nucleated RBC % Basophils # (Manual) PT INR APTT Heparin Anti-Xa Level 0.29 L ABG pH POC ABG pO2 ABG pO2 ABG HCO3 ABG O2 Saturation ABG Base Excess POC ABG pCO2 ABG Hemoglobin ABG Oxyhemoglobin ABG Chloride ABG Glucose Oxyhemoglobin Sodium Potassium 3.3 L D Chloride Carbon Dioxide 35 H D BUN 23 H Creatinine 0.6 L Glucose 149 H POC Glucose Lactic Acid Calcium Phosphorus Magnesium AST ALT 88 H Lactate Dehydrogenase Total Bilirubin Direct Bilirubin CK-MB (CK-2) C-Reactive Protein NT-Pro-B Natriuret Pep Total Protein 6.2 L Albumin 2.9 L Arterial Blood Glucose Urine WBC (Auto) Urine Creatinine 01/03/20 01/03/20 01/03/20 12:05 17:42 18:30 WBC RBC Hgb Hct MCHC RDW MCV MCH Lymph % (Auto) [place] % (Auto) [place] # Eos # Lymph # (Auto) [place] # (Auto) Eos # (Auto) Seg Neutrophils % Seg Neuts % (Manual) Baso # (Auto) Lymphocytes % (Manual) Monocytes % (Manual) Eosinophils % (Manual) Basophils % (Manual) Seg Neutrophils # Seg Neutrophils # Man Lymphocytes # (Manual) Monocytes # (Manual) Eosinophils # (Manual) Nucleated RBC % Basophils # (Manual) PT INR APTT Heparin Anti-Xa Level ABG pH POC ABG pO2 ABG pO2 70.7 L ABG HCO3 36.1 H ABG O2 Saturation 94.4 L ABG Base Excess 10.0 H POC ABG pCO2 ABG Hemoglobin 9.7 L ABG Oxyhemoglobin ABG Chloride ABG Glucose Oxyhemoglobin 91.8 L Sodium Potassium Chloride Carbon Dioxide BUN Creatinine Glucose POC Glucose 128 H 132 H Lactic Acid Calcium Phosphorus Magnesium AST ALT Lactate Dehydrogenase Total Bilirubin Direct Bilirubin CK-MB (CK-2) C-Reactive Protein NT-Pro-B Natriuret Pep Total Protein Albumin Arterial Blood Glucose Urine WBC (Auto) Urine Creatinine 01/04/20 01/04/20 01/04/20 00:10 04:26 05:23 WBC RBC Hgb Hct MCHC RDW MCV MCH Lymph % (Auto) [place] % (Auto) [place] # Eos # Lymph # (Auto) [place] # (Auto) Eos # (Auto) Seg Neutrophils % Seg Neuts % (Manual) Baso # (Auto) Lymphocytes % (Manual) Monocytes % (Manual) Eosinophils % (Manual) Basophils % (Manual) Seg Neutrophils # Seg Neutrophils # Man Lymphocytes # (Manual) Monocytes # (Manual) Eosinophils # (Manual) Nucleated RBC % Basophils # (Manual) PT INR APTT Heparin Anti-Xa Level 0.16 L ABG pH POC ABG pO2 ABG pO2 ABG HCO3 ABG O2 Saturation ABG Base Excess POC ABG pCO2 ABG Hemoglobin ABG Oxyhemoglobin ABG Chloride ABG Glucose Oxyhemoglobin Sodium Potassium Chloride Carbon Dioxide BUN Creatinine Glucose POC Glucose 121 H 119 H Lactic Acid Calcium Phosphorus Magnesium AST ALT Lactate Dehydrogenase Total Bilirubin Direct Bilirubin CK-MB (CK-2) C-Reactive Protein NT-Pro-B Natriuret Pep Total Protein Albumin Arterial Blood Glucose Urine WBC (Auto) Urine Creatinine 01/04/20 01/04/20 01/04/20 09:50 09:50 12:18 WBC 15.4 H RBC 3.30 L Hgb 8.7 L Hct 28.2 L MCHC 31 L RDW 17.0 H MCV MCH 26 L Lymph % (Auto) [place] % (Auto) 7.6 H [place] # Eos # Lymph # (Auto) [place] # (Auto) 1.2 H Eos # (Auto) Seg Neutrophils % 75.4 H Seg Neuts % (Manual) Baso # (Auto) Lymphocytes % (Manual) Monocytes % (Manual) Eosinophils % (Manual) Basophils % (Manual) Seg Neutrophils # 11.6 H Seg Neutrophils # Man Lymphocytes # (Manual) Monocytes # (Manual) Eosinophils # (Manual) Nucleated RBC % Basophils # (Manual) PT INR APTT Heparin Anti-Xa Level ABG pH POC ABG pO2 ABG pO2 ABG HCO3 ABG O2 Saturation ABG Base Excess POC ABG pCO2 ABG Hemoglobin ABG Oxyhemoglobin ABG Chloride ABG Glucose Oxyhemoglobin Sodium 148 H Potassium 3.5 L Chloride Carbon Dioxide 32 H BUN Creatinine 0.6 L Glucose 114 H POC Glucose 111 H Lactic Acid Calcium Phosphorus Magnesium AST ALT 59 H Lactate Dehydrogenase Total Bilirubin Direct Bilirubin CK-MB (CK-2) C-Reactive Protein NT-Pro-B Natriuret Pep Total Protein Albumin 2.6 L Arterial Blood Glucose Urine WBC (Auto) Urine Creatinine 01/05/20 01/05/20 01/05/20 04:05 04:05 05:19 WBC 11.7 H RBC 3.50 L Hgb 9.3 L Hct 29.9 L MCHC 31 L RDW 16.6 H MCV MCH 27 L Lymph % (Auto) 13.1 L [place] % (Auto) 9.7 H [place] # Eos # Lymph # (Auto) [place] # (Auto) 1.1 H Eos # (Auto) Seg Neutrophils % 74.0 H Seg Neuts % (Manual) Baso # (Auto) Lymphocytes % (Manual) Monocytes % (Manual) Eosinophils % (Manual) Basophils % (Manual) Seg Neutrophils # 8.6 H Seg Neutrophils # Man Lymphocytes # (Manual) Monocytes # (Manual) Eosinophils # (Manual) Nucleated RBC % Basophils # (Manual) PT INR APTT Heparin Anti-Xa Level ABG pH POC ABG pO2 ABG pO2 ABG HCO3 ABG O2 Saturation ABG Base Excess POC ABG pCO2 ABG Hemoglobin ABG Oxyhemoglobin ABG Chloride ABG Glucose Oxyhemoglobin Sodium 151 H Potassium Chloride Carbon Dioxide 34 H BUN Creatinine 0.7 L Glucose POC Glucose 112 H Lactic Acid Calcium Phosphorus Magnesium AST ALT 59 H Lactate Dehydrogenase Total Bilirubin Direct Bilirubin CK-MB (CK-2) C-Reactive Protein NT-Pro-B Natriuret Pep Total Protein 5.8 L Albumin 2.6 L Arterial Blood Glucose Urine WBC (Auto) Urine Creatinine 01/05/20 01/06/20 01/06/20 16:04 00:23 04:44 WBC RBC 3.36 L Hgb 8.9 L Hct 28.7 L MCHC 31 L RDW 16.9 H MCV MCH 26 L Lymph % (Auto) [place] % (Auto) 9.4 H [place] # Eos # Lymph # (Auto) [place] # (Auto) Eos # (Auto) Seg Neutrophils % Seg Neuts % (Manual) Baso # (Auto) Lymphocytes % (Manual) Monocytes % (Manual) Eosinophils % (Manual) Basophils % (Manual) Seg Neutrophils # Seg Neutrophils # Man Lymphocytes # (Manual) Monocytes # (Manual) Eosinophils # (Manual) Nucleated RBC % Basophils # (Manual) PT INR APTT Heparin Anti-Xa Level ABG pH POC ABG pO2 ABG pO2 ABG HCO3 ABG O2 Saturation ABG Base Excess POC ABG pCO2 ABG Hemoglobin ABG Oxyhemoglobin ABG Chloride ABG Glucose Oxyhemoglobin Sodium 151 H Potassium 3.2 L Chloride Carbon Dioxide 34 H BUN Creatinine 0.6 L Glucose POC Glucose 107 H Lactic Acid Calcium Phosphorus Magnesium AST ALT Lactate Dehydrogenase Total Bilirubin Direct Bilirubin CK-MB (CK-2) C-Reactive Protein NT-Pro-B Natriuret Pep Total Protein Albumin Arterial Blood Glucose Urine WBC (Auto) Urine Creatinine 01/06/20 01/06/20 01/06/20 04:44 05:33 12:04 WBC RBC Hgb Hct MCHC RDW MCV MCH Lymph % (Auto) [place] % (Auto) [place] # Eos # Lymph # (Auto) [place] # (Auto) Eos # (Auto) Seg Neutrophils % Seg Neuts % (Manual) Baso # (Auto) Lymphocytes % (Manual) Monocytes % (Manual) Eosinophils % (Manual) Basophils % (Manual) Seg Neutrophils # Seg Neutrophils # Man Lymphocytes # (Manual) Monocytes # (Manual) Eosinophils # (Manual) Nucleated RBC % Basophils # (Manual) PT INR APTT Heparin Anti-Xa Level ABG pH POC ABG pO2 ABG pO2 ABG HCO3 ABG O2 Saturation ABG Base Excess POC ABG pCO2 ABG Hemoglobin ABG Oxyhemoglobin ABG Chloride ABG Glucose Oxyhemoglobin Sodium 151 H Potassium 3.4 L Chloride Carbon Dioxide 33 H BUN Creatinine 0.6 L Glucose 118 H POC Glucose 118 H 123 H Lactic Acid Calcium Phosphorus Magnesium AST ALT Lactate Dehydrogenase Total Bilirubin Direct Bilirubin CK-MB (CK-2) C-Reactive Protein NT-Pro-B Natriuret Pep Total Protein 6.2 L Albumin 2.6 L Arterial Blood Glucose Urine WBC (Auto) Urine Creatinine 01/06/20 01/07/20 01/07/20 17:54 00:06 04:10 WBC RBC 3.42 L Hgb 8.9 L Hct 29.0 L MCHC 31 L RDW 17.1 H MCV MCH 26 L Lymph % (Auto) [place] % (Auto) 8.4 H [place] # Eos # Lymph # (Auto) [place] # (Auto) Eos # (Auto) Seg Neutrophils % Seg Neuts % (Manual) Baso # (Auto) Lymphocytes % (Manual) Monocytes % (Manual) Eosinophils % (Manual) Basophils % (Manual) Seg Neutrophils # Seg Neutrophils # Man Lymphocytes # (Manual) Monocytes # (Manual) Eosinophils # (Manual) Nucleated RBC % Basophils # (Manual) PT INR APTT Heparin Anti-Xa Level ABG pH POC ABG pO2 ABG pO2 ABG HCO3 ABG O2 Saturation ABG Base Excess POC ABG pCO2 ABG Hemoglobin ABG Oxyhemoglobin ABG Chloride ABG Glucose Oxyhemoglobin Sodium Potassium Chloride Carbon Dioxide BUN Creatinine Glucose POC Glucose 112 H 126 H Lactic Acid Calcium Phosphorus Magnesium AST ALT Lactate Dehydrogenase Total Bilirubin Direct Bilirubin CK-MB (CK-2) C-Reactive Protein NT-Pro-B Natriuret Pep Total Protein Albumin Arterial Blood Glucose Urine WBC (Auto) Urine Creatinine 01/07/20 01/07/20 01/07/20 04:10 05:59 12:27 WBC RBC Hgb Hct MCHC RDW MCV MCH Lymph % (Auto) [place] % (Auto) [place] # Eos # Lymph # (Auto) [place] # (Auto) Eos # (Auto) Seg Neutrophils % Seg Neuts % (Manual) Baso # (Auto) Lymphocytes % (Manual) Monocytes % (Manual) Eosinophils % (Manual) Basophils % (Manual) Seg Neutrophils # Seg Neutrophils # Man Lymphocytes # (Manual) Monocytes # (Manual) Eosinophils # (Manual) Nucleated RBC % Basophils # (Manual) PT INR APTT Heparin Anti-Xa Level ABG pH POC ABG pO2 ABG pO2 ABG HCO3 ABG O2 Saturation ABG Base Excess POC ABG pCO2 ABG Hemoglobin ABG Oxyhemoglobin ABG Chloride ABG Glucose Oxyhemoglobin Sodium 153 H Potassium 3.5 L Chloride Carbon Dioxide 34 H BUN Creatinine 0.6 L Glucose 121 H POC Glucose 121 H 126 H Lactic Acid Calcium Phosphorus Magnesium AST ALT Lactate Dehydrogenase Total Bilirubin Direct Bilirubin CK-MB (CK-2) C-Reactive Protein NT-Pro-B Natriuret Pep Total Protein 5.9 L Albumin 2.4 L Arterial Blood Glucose Urine WBC (Auto) Urine Creatinine 01/07/20 01/08/20 01/08/20 18:12 00:03 05:41 WBC RBC Hgb Hct MCHC RDW MCV MCH Lymph % (Auto) [place] % (Auto) [place] # Eos # Lymph # (Auto) [place] # (Auto) Eos # (Auto) Seg Neutrophils % Seg Neuts % (Manual) Baso # (Auto) Lymphocytes % (Manual) Monocytes % (Manual) Eosinophils % (Manual) Basophils % (Manual) Seg Neutrophils # Seg Neutrophils # Man Lymphocytes # (Manual) Monocytes # (Manual) Eosinophils # (Manual) Nucleated RBC % Basophils # (Manual) PT INR APTT Heparin Anti-Xa Level ABG pH POC ABG pO2 ABG pO2 ABG HCO3 ABG O2 Saturation ABG Base Excess POC ABG pCO2 ABG Hemoglobin ABG Oxyhemoglobin ABG Chloride ABG Glucose Oxyhemoglobin Sodium Potassium Chloride Carbon Dioxide BUN Creatinine Glucose POC Glucose 124 H 130 H 138 H Lactic Acid Calcium Phosphorus Magnesium AST ALT Lactate Dehydrogenase Total Bilirubin Direct Bilirubin CK-MB (CK-2) C-Reactive Protein NT-Pro-B Natriuret Pep Total Protein Albumin Arterial Blood Glucose Urine WBC (Auto) Urine Creatinine 01/08/20 01/08/20 01/08/20 09:28 11:42 18:21 WBC RBC Hgb Hct MCHC RDW MCV MCH Lymph % (Auto) [place] % (Auto) [place] # Eos # Lymph # (Auto) [place] # (Auto) Eos # (Auto) Seg Neutrophils % Seg Neuts % (Manual) Baso # (Auto) Lymphocytes % (Manual) Monocytes % (Manual) Eosinophils % (Manual) Basophils % (Manual) Seg Neutrophils # Seg Neutrophils # Man Lymphocytes # (Manual) Monocytes # (Manual) Eosinophils # (Manual) Nucleated RBC % Basophils # (Manual) PT INR APTT Heparin Anti-Xa Level ABG pH POC ABG pO2 ABG pO2 ABG HCO3 ABG O2 Saturation ABG Base Excess POC ABG pCO2 ABG Hemoglobin ABG Oxyhemoglobin ABG Chloride ABG Glucose Oxyhemoglobin Sodium Potassium Chloride Carbon Dioxide BUN Creatinine Glucose POC Glucose 181 H 150 H 129 H Lactic Acid Calcium Phosphorus Magnesium AST ALT Lactate Dehydrogenase Total Bilirubin Direct Bilirubin CK-MB (CK-2) C-Reactive Protein NT-Pro-B Natriuret Pep Total Protein Albumin Arterial Blood Glucose Urine WBC (Auto) Urine Creatinine 01/08/20 01/08/20 01/09/20 19:25 23:55 04:11 WBC RBC 3.43 L Hgb 8.9 L Hct 28.7 L MCHC 31 L RDW 17.6 H MCV MCH 26 L Lymph % (Auto) [place] % (Auto) 8.6 H [place] # Eos # Lymph # (Auto) [place] # (Auto) Eos # (Auto) Seg Neutrophils % Seg Neuts % (Manual) Baso # (Auto) Lymphocytes % (Manual) Monocytes % (Manual) Eosinophils % (Manual) Basophils % (Manual) Seg Neutrophils # Seg Neutrophils # Man Lymphocytes # (Manual) Monocytes # (Manual) Eosinophils # (Manual) Nucleated RBC % Basophils # (Manual) PT INR APTT Heparin Anti-Xa Level ABG pH POC ABG pO2 ABG pO2 ABG HCO3 ABG O2 Saturation ABG Base Excess POC ABG pCO2 ABG Hemoglobin ABG Oxyhemoglobin ABG Chloride ABG Glucose Oxyhemoglobin Sodium Potassium Chloride Carbon Dioxide BUN Creatinine 0.7 L Glucose 117 H POC Glucose 132 H Lactic Acid Calcium Phosphorus Magnesium AST ALT Lactate Dehydrogenase Total Bilirubin Direct Bilirubin CK-MB (CK-2) C-Reactive Protein NT-Pro-B Natriuret Pep Total Protein Albumin Arterial Blood Glucose Urine WBC (Auto) Urine Creatinine 01/09/20 01/09/20 01/09/20 04:11 05:38 22:58 WBC RBC Hgb Hct MCHC RDW MCV MCH Lymph % (Auto) [place] % (Auto) [place] # Eos # Lymph # (Auto) [place] # (Auto) Eos # (Auto) Seg Neutrophils % Seg Neuts % (Manual) Baso # (Auto) Lymphocytes % (Manual) Monocytes % (Manual) Eosinophils % (Manual) Basophils % (Manual) Seg Neutrophils # Seg Neutrophils # Man Lymphocytes # (Manual) Monocytes # (Manual) Eosinophils # (Manual) Nucleated RBC % Basophils # (Manual) PT INR APTT Heparin Anti-Xa Level ABG pH POC ABG pO2 ABG pO2 ABG HCO3 ABG O2 Saturation ABG Base Excess POC ABG pCO2 ABG Hemoglobin ABG Oxyhemoglobin ABG Chloride ABG Glucose Oxyhemoglobin Sodium 147 H Potassium 3.3 L D Chloride Carbon Dioxide 32 H BUN Creatinine 0.6 L Glucose 106 H POC Glucose 107 H 113 H Lactic Acid Calcium Phosphorus Magnesium AST ALT Lactate Dehydrogenase Total Bilirubin Direct Bilirubin CK-MB (CK-2) C-Reactive Protein NT-Pro-B Natriuret Pep Total Protein Albumin Arterial Blood Glucose Urine WBC (Auto) Urine Creatinine 01/10/20 01/10/20 01/10/20 04:05 11:36 17:54 WBC RBC Hgb Hct MCHC RDW MCV MCH Lymph % (Auto) [place] % (Auto) [place] # Eos # Lymph # (Auto) [place] # (Auto) Eos # (Auto) Seg Neutrophils % Seg Neuts % (Manual) Baso # (Auto) Lymphocytes % (Manual) Monocytes % (Manual) Eosinophils % (Manual) Basophils % (Manual) Seg Neutrophils # Seg Neutrophils # Man Lymphocytes # (Manual) Monocytes # (Manual) Eosinophils # (Manual) Nucleated RBC % Basophils # (Manual) PT INR APTT Heparin Anti-Xa Level ABG pH POC ABG pO2 ABG pO2 ABG HCO3 ABG O2 Saturation ABG Base Excess POC ABG pCO2 ABG Hemoglobin ABG Oxyhemoglobin ABG Chloride ABG Glucose Oxyhemoglobin Sodium Potassium Chloride Carbon Dioxide BUN Creatinine 0.7 L Glucose 110 H POC Glucose 129 H 117 H Lactic Acid Calcium Phosphorus Magnesium AST ALT Lactate Dehydrogenase Total Bilirubin Direct Bilirubin CK-MB (CK-2) C-Reactive Protein NT-Pro-B Natriuret Pep Total Protein Albumin Arterial Blood Glucose Urine WBC (Auto) Urine Creatinine 01/10/20 01/11/20 01/11/20 23:52 03:19 12:09 WBC RBC Hgb Hct MCHC RDW MCV MCH Lymph % (Auto) [place] % (Auto) [place] # Eos # Lymph # (Auto) [place] # (Auto) Eos # (Auto) Seg Neutrophils % Seg Neuts % (Manual) Baso # (Auto) Lymphocytes % (Manual) Monocytes % (Manual) Eosinophils % (Manual) Basophils % (Manual) Seg Neutrophils # Seg Neutrophils # Man Lymphocytes # (Manual) Monocytes # (Manual) Eosinophils # (Manual) Nucleated RBC % Basophils # (Manual) PT INR APTT Heparin Anti-Xa Level ABG pH POC ABG pO2 ABG pO2 ABG HCO3 ABG O2 Saturation ABG Base Excess POC ABG pCO2 ABG Hemoglobin ABG Oxyhemoglobin ABG Chloride ABG Glucose Oxyhemoglobin Sodium Potassium Chloride Carbon Dioxide BUN Creatinine Glucose POC Glucose 117 H 136 H 115 H Lactic Acid Calcium Phosphorus Magnesium AST ALT Lactate Dehydrogenase Total Bilirubin Direct Bilirubin CK-MB (CK-2) C-Reactive Protein NT-Pro-B Natriuret Pep Total Protein Albumin Arterial Blood Glucose Urine WBC (Auto) Urine Creatinine 01/11/20 01/11/20 01/12/20 18:27 23:28 00:23 WBC RBC Hgb 9.8 L Hct 31.6 L MCHC 31 L RDW 17.8 H MCV 83 L MCH 26 L Lymph % (Auto) [place] % (Auto) 8.0 H [place] # Eos # Lymph # (Auto) [place] # (Auto) Eos # (Auto) Seg Neutrophils % Seg Neuts % (Manual) Baso # (Auto) Lymphocytes % (Manual) Monocytes % (Manual) Eosinophils % (Manual) Basophils % (Manual) Seg Neutrophils # Seg Neutrophils # Man Lymphocytes # (Manual) Monocytes # (Manual) Eosinophils # (Manual) Nucleated RBC % Basophils # (Manual) PT INR APTT Heparin Anti-Xa Level ABG pH POC ABG pO2 ABG pO2 ABG HCO3 ABG O2 Saturation ABG Base Excess POC ABG pCO2 ABG Hemoglobin ABG Oxyhemoglobin ABG Chloride ABG Glucose Oxyhemoglobin Sodium Potassium Chloride Carbon Dioxide BUN Creatinine Glucose POC Glucose 118 H 122 H Lactic Acid Calcium Phosphorus Magnesium AST ALT Lactate Dehydrogenase Total Bilirubin Direct Bilirubin CK-MB (CK-2) C-Reactive Protein NT-Pro-B Natriuret Pep Total Protein Albumin Arterial Blood Glucose Urine WBC (Auto) Urine Creatinine 01/12/20 01/12/20 01/12/20 00:23 04:18 04:18 WBC RBC Hgb 9.6 L Hct 30.9 L MCHC 31 L RDW 17.3 H MCV 81 L MCH 25 L Lymph % (Auto) [place] % (Auto) [place] # Eos # Lymph # (Auto) [place] # (Auto) Eos # (Auto) Seg Neutrophils % Seg Neuts % (Manual) Baso # (Auto) Lymphocytes % (Manual) Monocytes % (Manual) Eosinophils % (Manual) Basophils % (Manual) Seg Neutrophils # Seg Neutrophils # Man Lymphocytes # (Manual) Monocytes # (Manual) Eosinophils # (Manual) Nucleated RBC % Basophils # (Manual) PT INR APTT Heparin Anti-Xa Level ABG pH POC ABG pO2 ABG pO2 ABG HCO3 ABG O2 Saturation ABG Base Excess POC ABG pCO2 ABG Hemoglobin ABG Oxyhemoglobin ABG Chloride ABG Glucose Oxyhemoglobin Sodium Potassium Chloride Carbon Dioxide BUN Creatinine 0.7 L 0.7 L Glucose 111 H 108 H POC Glucose Lactic Acid Calcium Phosphorus Magnesium AST ALT Lactate Dehydrogenase Total Bilirubin Direct Bilirubin CK-MB (CK-2) C-Reactive Protein NT-Pro-B Natriuret Pep Total Protein Albumin 2.6 L Arterial Blood Glucose Urine WBC (Auto) Urine Creatinine 01/12/20 01/12/20 01/12/20 06:03 12:27 13:58 WBC RBC Hgb Hct MCHC RDW MCV MCH Lymph % (Auto) [place] % (Auto) [place] # Eos # Lymph # (Auto) [place] # (Auto) Eos # (Auto) Seg Neutrophils % Seg Neuts % (Manual) Baso # (Auto) Lymphocytes % (Manual) Monocytes % (Manual) Eosinophils % (Manual) Basophils % (Manual) Seg Neutrophils # Seg Neutrophils # Man Lymphocytes # (Manual) Monocytes # (Manual) Eosinophils # (Manual) Nucleated RBC % Basophils # (Manual) PT INR APTT Heparin Anti-Xa Level ABG pH 7.453 H POC ABG pO2 76.6 L ABG pO2 ABG HCO3 ABG O2 Saturation ABG Base Excess POC ABG pCO2 ABG Hemoglobin 10.3 L ABG Oxyhemoglobin ABG Chloride ABG Glucose 99 H Oxyhemoglobin Sodium Potassium Chloride Carbon Dioxide BUN Creatinine Glucose POC Glucose 128 H 121 H Lactic Acid Calcium Phosphorus Magnesium AST ALT Lactate Dehydrogenase Total Bilirubin Direct Bilirubin CK-MB (CK-2) C-Reactive Protein NT-Pro-B Natriuret Pep Total Protein Albumin Arterial Blood Glucose 99 H Urine WBC (Auto) Urine Creatinine 01/12/20 01/13/20 01/13/20 18:24 12:01 17:46 WBC RBC Hgb Hct MCHC RDW MCV MCH Lymph % (Auto) [place] % (Auto) [place] # Eos # Lymph # (Auto) [place] # (Auto) Eos # (Auto) Seg Neutrophils % Seg Neuts % (Manual) Baso # (Auto) Lymphocytes % (Manual) Monocytes % (Manual) Eosinophils % (Manual) Basophils % (Manual) Seg Neutrophils # Seg Neutrophils # Man Lymphocytes # (Manual) Monocytes # (Manual) Eosinophils # (Manual) Nucleated RBC % Basophils # (Manual) PT INR APTT Heparin Anti-Xa Level ABG pH POC ABG pO2 ABG pO2 ABG HCO3 ABG O2 Saturation ABG Base Excess POC ABG pCO2 ABG Hemoglobin ABG Oxyhemoglobin ABG Chloride ABG Glucose Oxyhemoglobin Sodium Potassium Chloride Carbon Dioxide BUN Creatinine Glucose POC Glucose 119 H 107 H 124 H Lactic Acid Calcium Phosphorus Magnesium AST ALT Lactate Dehydrogenase Total Bilirubin Direct Bilirubin CK-MB (CK-2) C-Reactive Protein NT-Pro-B Natriuret Pep Total Protein Albumin Arterial Blood Glucose Urine WBC (Auto) Urine Creatinine 01/13/20 01/14/20 01/14/20 20:40 00:10 05:33 WBC RBC Hgb Hct MCHC RDW MCV MCH Lymph % (Auto) [place] % (Auto) [place] # Eos # Lymph # (Auto) [place] # (Auto) Eos # (Auto) Seg Neutrophils % Seg Neuts % (Manual) Baso # (Auto) Lymphocytes % (Manual) Monocytes % (Manual) Eosinophils % (Manual) Basophils % (Manual) Seg Neutrophils # Seg Neutrophils # Man Lymphocytes # (Manual) Monocytes # (Manual) Eosinophils # (Manual) Nucleated RBC % Basophils # (Manual) PT INR APTT Heparin Anti-Xa Level ABG pH POC ABG pO2 ABG pO2 65.3 L ABG HCO3 31.8 H ABG O2 Saturation 93.5 L ABG Base Excess 6.7 H POC ABG pCO2 ABG Hemoglobin 13.3 L ABG Oxyhemoglobin ABG Chloride ABG Glucose Oxyhemoglobin 90.9 L Sodium Potassium Chloride Carbon Dioxide BUN Creatinine Glucose POC Glucose 111 H 111 H Lactic Acid Calcium Phosphorus Magnesium AST ALT Lactate Dehydrogenase Total Bilirubin Direct Bilirubin CK-MB (CK-2) C-Reactive Protein NT-Pro-B Natriuret Pep Total Protein Albumin Arterial Blood Glucose Urine WBC (Auto) Urine Creatinine 01/14/20 01/14/20 01/14/20 12:10 16:14 16:14 WBC RBC Hgb 10.6 L Hct 34.2 L MCHC 31 L RDW 18.3 H MCV 83 L MCH 26 L Lymph % (Auto) [place] % (Auto) 7.4 H [place] # Eos # Lymph # (Auto) [place] # (Auto) Eos # (Auto) Seg Neutrophils % 71.9 H Seg Neuts % (Manual) Baso # (Auto) Lymphocytes % (Manual) Monocytes % (Manual) Eosinophils % (Manual) Basophils % (Manual) Seg Neutrophils # Seg Neutrophils # Man Lymphocytes # (Manual) Monocytes # (Manual) Eosinophils # (Manual) Nucleated RBC % Basophils # (Manual) PT INR APTT Heparin Anti-Xa Level ABG pH POC ABG pO2 ABG pO2 ABG HCO3 ABG O2 Saturation ABG Base Excess POC ABG pCO2 ABG Hemoglobin ABG Oxyhemoglobin ABG Chloride ABG Glucose Oxyhemoglobin Sodium Potassium Chloride Carbon Dioxide 31 H BUN Creatinine 0.6 L Glucose 131 H POC Glucose 139 H Lactic Acid Calcium Phosphorus Magnesium AST ALT Lactate Dehydrogenase Total Bilirubin Direct Bilirubin CK-MB (CK-2) C-Reactive Protein NT-Pro-B Natriuret Pep Total Protein Albumin Arterial Blood Glucose Urine WBC (Auto) Urine Creatinine 01/14/20 01/15/20 01/15/20 18:05 00:52 05:35 WBC RBC Hgb Hct MCHC RDW MCV MCH Lymph % (Auto) [place] % (Auto) [place] # Eos # Lymph # (Auto) [place] # (Auto) Eos # (Auto) Seg Neutrophils % Seg Neuts % (Manual) Baso # (Auto) Lymphocytes % (Manual) Monocytes % (Manual) Eosinophils % (Manual) Basophils % (Manual) Seg Neutrophils # Seg Neutrophils # Man Lymphocytes # (Manual) Monocytes # (Manual) Eosinophils # (Manual) Nucleated RBC % Basophils # (Manual) PT INR APTT Heparin Anti-Xa Level ABG pH POC ABG pO2 ABG pO2 ABG HCO3 ABG O2 Saturation ABG Base Excess POC ABG pCO2 ABG Hemoglobin ABG Oxyhemoglobin ABG Chloride ABG Glucose Oxyhemoglobin Sodium Potassium Chloride Carbon Dioxide BUN Creatinine Glucose POC Glucose 147 H 140 H 159 H Lactic Acid Calcium Phosphorus Magnesium AST ALT Lactate Dehydrogenase Total Bilirubin Direct Bilirubin CK-MB (CK-2) C-Reactive Protein NT-Pro-B Natriuret Pep Total Protein Albumin Arterial Blood Glucose Urine WBC (Auto) Urine Creatinine 01/15/20 01/15/20 01/16/20 12:52 17:43 00:32 WBC RBC Hgb Hct MCHC RDW MCV MCH Lymph % (Auto) [place] % (Auto) [place] # Eos # Lymph # (Auto) [place] # (Auto) Eos # (Auto) Seg Neutrophils % Seg Neuts % (Manual) Baso # (Auto) Lymphocytes % (Manual) Monocytes % (Manual) Eosinophils % (Manual) Basophils % (Manual) Seg Neutrophils # Seg Neutrophils # Man Lymphocytes # (Manual) Monocytes # (Manual) Eosinophils # (Manual) Nucleated RBC % Basophils # (Manual) PT INR APTT Heparin Anti-Xa Level ABG pH POC ABG pO2 ABG pO2 ABG HCO3 ABG O2 Saturation ABG Base Excess POC ABG pCO2 ABG Hemoglobin ABG Oxyhemoglobin ABG Chloride ABG Glucose Oxyhemoglobin Sodium Potassium Chloride Carbon Dioxide BUN Creatinine Glucose POC Glucose 164 H 167 H 153 H Lactic Acid Calcium Phosphorus Magnesium AST ALT Lactate Dehydrogenase Total Bilirubin Direct Bilirubin CK-MB (CK-2) C-Reactive Protein NT-Pro-B Natriuret Pep Total Protein Albumin Arterial Blood Glucose Urine WBC (Auto) Urine Creatinine 01/16/20 01/16/20 01/17/20 05:46 11:48 06:38 WBC RBC Hgb Hct MCHC RDW MCV MCH Lymph % (Auto) [place] % (Auto) [place] # Eos # Lymph # (Auto) [place] # (Auto) Eos # (Auto) Seg Neutrophils % Seg Neuts % (Manual) Baso # (Auto) Lymphocytes % (Manual) Monocytes % (Manual) Eosinophils % (Manual) Basophils % (Manual) Seg Neutrophils # Seg Neutrophils # Man Lymphocytes # (Manual) Monocytes # (Manual) Eosinophils # (Manual) Nucleated RBC % Basophils # (Manual) PT INR APTT Heparin Anti-Xa Level ABG pH POC ABG pO2 ABG pO2 ABG HCO3 ABG O2 Saturation ABG Base Excess POC ABG pCO2 ABG Hemoglobin ABG Oxyhemoglobin ABG Chloride ABG Glucose Oxyhemoglobin Sodium Potassium Chloride Carbon Dioxide BUN Creatinine Glucose POC Glucose 163 H 155 H 116 H Lactic Acid Calcium Phosphorus Magnesium AST ALT Lactate Dehydrogenase Total Bilirubin Direct Bilirubin CK-MB (CK-2) C-Reactive Protein NT-Pro-B Natriuret Pep Total Protein Albumin Arterial Blood Glucose Urine WBC (Auto) Urine Creatinine 01/17/20 01/17/20 01/18/20 11:36 17:43 00:12 WBC RBC Hgb Hct MCHC RDW MCV MCH Lymph % (Auto) [place] % (Auto) [place] # Eos # Lymph # (Auto) [place] # (Auto) Eos # (Auto) Seg Neutrophils % Seg Neuts % (Manual) Baso # (Auto) Lymphocytes % (Manual) Monocytes % (Manual) Eosinophils % (Manual) Basophils % (Manual) Seg Neutrophils # Seg Neutrophils # Man Lymphocytes # (Manual) Monocytes # (Manual) Eosinophils # (Manual) Nucleated RBC % Basophils # (Manual) PT INR APTT Heparin Anti-Xa Level ABG pH POC ABG pO2 ABG pO2 ABG HCO3 ABG O2 Saturation ABG Base Excess POC ABG pCO2 ABG Hemoglobin ABG Oxyhemoglobin ABG Chloride ABG Glucose Oxyhemoglobin Sodium Potassium Chloride Carbon Dioxide BUN Creatinine Glucose POC Glucose 110 H 134 H 108 H Lactic Acid Calcium Phosphorus Magnesium AST ALT Lactate Dehydrogenase Total Bilirubin Direct Bilirubin CK-MB (CK-2) C-Reactive Protein NT-Pro-B Natriuret Pep Total Protein Albumin Arterial Blood Glucose Urine WBC (Auto) Urine Creatinine 01/18/20 01/18/20 01/18/20 05:37 06:46 06:46 WBC RBC Hgb 10.1 L Hct 32.2 L MCHC 31 L RDW 18.1 H MCV 81 L MCH 25 L Lymph % (Auto) [place] % (Auto) [place] # Eos # Lymph # (Auto) [place] # (Auto) Eos # (Auto) Seg Neutrophils % 71.9 H Seg Neuts % (Manual) Baso # (Auto) Lymphocytes % (Manual) Monocytes % (Manual) Eosinophils % (Manual) Basophils % (Manual) Seg Neutrophils # Seg Neutrophils # Man Lymphocytes # (Manual) Monocytes # (Manual) Eosinophils # (Manual) Nucleated RBC % Basophils # (Manual) PT INR APTT Heparin Anti-Xa Level ABG pH POC ABG pO2 ABG pO2 ABG HCO3 ABG O2 Saturation ABG Base Excess POC ABG pCO2 ABG Hemoglobin ABG Oxyhemoglobin ABG Chloride ABG Glucose Oxyhemoglobin Sodium Potassium Chloride Carbon Dioxide BUN Creatinine 0.7 L Glucose 155 H POC Glucose 168 H Lactic Acid Calcium Phosphorus Magnesium AST ALT Lactate Dehydrogenase Total Bilirubin Direct Bilirubin CK-MB (CK-2) C-Reactive Protein NT-Pro-B Natriuret Pep Total Protein Albumin Arterial Blood Glucose Urine WBC (Auto) Urine Creatinine 01/18/20 01/18/20 01/18/20 12:05 17:14 23:28 WBC RBC Hgb Hct MCHC RDW MCV MCH Lymph % (Auto) [place] % (Auto) [place] # Eos # Lymph # (Auto) [place] # (Auto) Eos # (Auto) Seg Neutrophils % Seg Neuts % (Manual) Baso # (Auto) Lymphocytes % (Manual) Monocytes % (Manual) Eosinophils % (Manual) Basophils % (Manual) Seg Neutrophils # Seg Neutrophils # Man Lymphocytes # (Manual) Monocytes # (Manual) Eosinophils # (Manual) Nucleated RBC % Basophils # (Manual) PT INR APTT Heparin Anti-Xa Level ABG pH POC ABG pO2 ABG pO2 ABG HCO3 ABG O2 Saturation ABG Base Excess POC ABG pCO2 ABG Hemoglobin ABG Oxyhemoglobin ABG Chloride ABG Glucose Oxyhemoglobin Sodium Potassium Chloride Carbon Dioxide BUN Creatinine Glucose POC Glucose 128 H 126 H 128 H Lactic Acid Calcium Phosphorus Magnesium AST ALT Lactate Dehydrogenase Total Bilirubin Direct Bilirubin CK-MB (CK-2) C-Reactive Protein NT-Pro-B Natriuret Pep Total Protein Albumin Arterial Blood Glucose Urine WBC (Auto) Urine Creatinine 01/19/20 01/19/20 01/19/20 05:39 12:33 17:36 WBC RBC Hgb Hct MCHC RDW MCV MCH Lymph % (Auto) [place] % (Auto) [place] # Eos # Lymph # (Auto) [place] # (Auto) Eos # (Auto) Seg Neutrophils % Seg Neuts % (Manual) Baso # (Auto) Lymphocytes % (Manual) Monocytes % (Manual) Eosinophils % (Manual) Basophils % (Manual) Seg Neutrophils # Seg Neutrophils # Man Lymphocytes # (Manual) Monocytes # (Manual) Eosinophils # (Manual) Nucleated RBC % Basophils # (Manual) PT INR APTT Heparin Anti-Xa Level ABG pH POC ABG pO2 ABG pO2 ABG HCO3 ABG O2 Saturation ABG Base Excess POC ABG pCO2 ABG Hemoglobin ABG Oxyhemoglobin ABG Chloride ABG Glucose Oxyhemoglobin Sodium Potassium Chloride Carbon Dioxide BUN Creatinine Glucose POC Glucose 164 H 171 H 152 H Lactic Acid Calcium Phosphorus Magnesium AST ALT Lactate Dehydrogenase Total Bilirubin Direct Bilirubin CK-MB (CK-2) C-Reactive Protein NT-Pro-B Natriuret Pep Total Protein Albumin Arterial Blood Glucose Urine WBC (Auto) Urine Creatinine 01/20/20 01/20/20 01/20/20 00:12 05:20 05:35 WBC RBC Hgb 9.2 L Hct 29.4 L MCHC 31 L RDW 17.9 H MCV 81 L MCH 25 L Lymph % (Auto) [place] % (Auto) [place] # Eos # Lymph # (Auto) [place] # (Auto) Eos # (Auto) Seg Neutrophils % Seg Neuts % (Manual) Baso # (Auto) Lymphocytes % (Manual) Monocytes % (Manual) Eosinophils % (Manual) Basophils % (Manual) Seg Neutrophils # Seg Neutrophils # Man Lymphocytes # (Manual) Monocytes # (Manual) Eosinophils # (Manual) Nucleated RBC % Basophils # (Manual) PT INR APTT Heparin Anti-Xa Level ABG pH POC ABG pO2 ABG pO2 ABG HCO3 ABG O2 Saturation ABG Base Excess POC ABG pCO2 ABG Hemoglobin ABG Oxyhemoglobin ABG Chloride ABG Glucose Oxyhemoglobin Sodium Potassium Chloride Carbon Dioxide BUN Creatinine Glucose POC Glucose 120 H 136 H Lactic Acid Calcium Phosphorus Magnesium AST ALT Lactate Dehydrogenase Total Bilirubin Direct Bilirubin CK-MB (CK-2) C-Reactive Protein NT-Pro-B Natriuret Pep Total Protein Albumin Arterial Blood Glucose Urine WBC (Auto) Urine Creatinine 01/20/20 01/20/20 01/20/20 05:40 11:58 14:55 WBC RBC Hgb 9.0 L Hct 28.3 L MCHC RDW MCV MCH Lymph % (Auto) [place] % (Auto) [place] # Eos # Lymph # (Auto) [place] # (Auto) Eos # (Auto) Seg Neutrophils % Seg Neuts % (Manual) Baso # (Auto) Lymphocytes % (Manual) Monocytes % (Manual) Eosinophils % (Manual) Basophils % (Manual) Seg Neutrophils # Seg Neutrophils # Man Lymphocytes # (Manual) Monocytes # (Manual) Eosinophils # (Manual) Nucleated RBC % Basophils # (Manual) PT INR APTT Heparin Anti-Xa Level ABG pH POC ABG pO2 ABG pO2 ABG HCO3 ABG O2 Saturation ABG Base Excess POC ABG pCO2 ABG Hemoglobin ABG Oxyhemoglobin ABG Chloride ABG Glucose Oxyhemoglobin Sodium Potassium Chloride Carbon Dioxide 32 H BUN 22 H Creatinine 0.7 L Glucose 128 H POC Glucose 152 H Lactic Acid Calcium Phosphorus Magnesium AST ALT Lactate Dehydrogenase Total Bilirubin Direct Bilirubin CK-MB (CK-2) C-Reactive Protein NT-Pro-B Natriuret Pep Total Protein Albumin Arterial Blood Glucose Urine WBC (Auto) Urine Creatinine 01/20/20 01/20/20 01/20/20 14:55 18:14 21:35 WBC RBC Hgb Hct MCHC RDW MCV MCH Lymph % (Auto) [place] % (Auto) [place] # Eos # Lymph # (Auto) [place] # (Auto) Eos # (Auto) Seg Neutrophils % Seg Neuts % (Manual) Baso # (Auto) Lymphocytes % (Manual) Monocytes % (Manual) Eosinophils % (Manual) Basophils % (Manual) Seg Neutrophils # Seg Neutrophils # Man Lymphocytes # (Manual) Monocytes # (Manual) Eosinophils # (Manual) Nucleated RBC % Basophils # (Manual) PT 20.4 H INR 1.72 H APTT 40.6 H Heparin Anti-Xa Level > 2.00 H ABG pH POC ABG pO2 ABG pO2 ABG HCO3 ABG O2 Saturation ABG Base Excess POC ABG pCO2 ABG Hemoglobin ABG Oxyhemoglobin ABG Chloride ABG Glucose Oxyhemoglobin Sodium Potassium Chloride Carbon Dioxide BUN Creatinine Glucose POC Glucose 150 H Lactic Acid Calcium Phosphorus Magnesium AST ALT Lactate Dehydrogenase Total Bilirubin Direct Bilirubin CK-MB (CK-2) C-Reactive Protein NT-Pro-B Natriuret Pep Total Protein Albumin Arterial Blood Glucose Urine WBC (Auto) Urine Creatinine 01/21/20 01/21/20 01/21/20 00:30 05:47 05:59 WBC RBC Hgb Hct MCHC RDW MCV MCH Lymph % (Auto) [place] % (Auto) [place] # Eos # Lymph # (Auto) [place] # (Auto) Eos # (Auto) Seg Neutrophils % Seg Neuts % (Manual) Baso # (Auto) Lymphocytes % (Manual) Monocytes % (Manual) Eosinophils % (Manual) Basophils % (Manual) Seg Neutrophils # Seg Neutrophils # Man Lymphocytes # (Manual) Monocytes # (Manual) Eosinophils # (Manual) Nucleated RBC % Basophils # (Manual) PT INR APTT Heparin Anti-Xa Level 1.93 H ABG pH POC ABG pO2 ABG pO2 ABG HCO3 ABG O2 Saturation ABG Base Excess POC ABG pCO2 ABG Hemoglobin ABG Oxyhemoglobin ABG Chloride ABG Glucose Oxyhemoglobin Sodium Potassium Chloride Carbon Dioxide BUN Creatinine Glucose POC Glucose 126 H 148 H Lactic Acid Calcium Phosphorus Magnesium AST ALT Lactate Dehydrogenase Total Bilirubin Direct Bilirubin CK-MB (CK-2) C-Reactive Protein NT-Pro-B Natriuret Pep Total Protein Albumin Arterial Blood Glucose Urine WBC (Auto) Urine Creatinine 01/21/20 01/21/20 01/21/20 12:32 18:20 23:54 WBC RBC Hgb Hct MCHC RDW MCV MCH Lymph % (Auto) [place] % (Auto) [place] # Eos # Lymph # (Auto) [place] # (Auto) Eos # (Auto) Seg Neutrophils % Seg Neuts % (Manual) Baso # (Auto) Lymphocytes % (Manual) Monocytes % (Manual) Eosinophils % (Manual) Basophils % (Manual) Seg Neutrophils # Seg Neutrophils # Man Lymphocytes # (Manual) Monocytes # (Manual) Eosinophils # (Manual) Nucleated RBC % Basophils # (Manual) PT INR APTT Heparin Anti-Xa Level 1.28 H ABG pH POC ABG pO2 ABG pO2 ABG HCO3 ABG O2 Saturation ABG Base Excess POC ABG pCO2 ABG Hemoglobin ABG Oxyhemoglobin ABG Chloride ABG Glucose Oxyhemoglobin Sodium Potassium Chloride Carbon Dioxide BUN Creatinine Glucose POC Glucose 112 H 146 H Lactic Acid Calcium Phosphorus Magnesium AST ALT Lactate Dehydrogenase Total Bilirubin Direct Bilirubin CK-MB (CK-2) C-Reactive Protein NT-Pro-B Natriuret Pep Total Protein Albumin Arterial Blood Glucose Urine WBC (Auto) Urine Creatinine 01/22/20 01/22/20 01/22/20 04:45 04:45 05:48 WBC RBC Hgb 9.3 L Hct 29.0 L MCHC RDW MCV MCH Lymph % (Auto) [place] % (Auto) [place] # Eos # Lymph # (Auto) [place] # (Auto) Eos # (Auto) Seg Neutrophils % Seg Neuts % (Manual) Baso # (Auto) Lymphocytes % (Manual) Monocytes % (Manual) Eosinophils % (Manual) Basophils % (Manual) Seg Neutrophils # Seg Neutrophils # Man Lymphocytes # (Manual) Monocytes # (Manual) Eosinophils # (Manual) Nucleated RBC % Basophils # (Manual) PT INR APTT Heparin Anti-Xa Level 1.34 H ABG pH POC ABG pO2 ABG pO2 ABG HCO3 ABG O2 Saturation ABG Base Excess POC ABG pCO2 ABG Hemoglobin ABG Oxyhemoglobin ABG Chloride ABG Glucose Oxyhemoglobin Sodium Potassium Chloride Carbon Dioxide BUN Creatinine Glucose POC Glucose 142 H Lactic Acid Calcium Phosphorus Magnesium AST ALT Lactate Dehydrogenase Total Bilirubin Direct Bilirubin CK-MB (CK-2) C-Reactive Protein NT-Pro-B Natriuret Pep Total Protein Albumin Arterial Blood Glucose Urine WBC (Auto) Urine Creatinine 01/22/20 01/22/20 01/22/20 08:09 08:22 09:58 WBC RBC Hgb Hct MCHC RDW MCV MCH Lymph % (Auto) [place] % (Auto) [place] # Eos # Lymph # (Auto) [place] # (Auto) Eos # (Auto) Seg Neutrophils % Seg Neuts % (Manual) Baso # (Auto) Lymphocytes % (Manual) Monocytes % (Manual) Eosinophils % (Manual) Basophils % (Manual) Seg Neutrophils # Seg Neutrophils # Man Lymphocytes # (Manual) Monocytes # (Manual) Eosinophils # (Manual) Nucleated RBC % Basophils # (Manual) PT 16.9 H INR 1.34 H APTT Heparin Anti-Xa Level ABG pH POC ABG pO2 ABG pO2 ABG HCO3 ABG O2 Saturation ABG Base Excess POC ABG pCO2 ABG Hemoglobin ABG Oxyhemoglobin ABG Chloride ABG Glucose Oxyhemoglobin Sodium Potassium Chloride 97.8 L Carbon Dioxide BUN 29 H Creatinine Glucose 128 H POC Glucose 131 H Lactic Acid Calcium Phosphorus Magnesium AST ALT Lactate Dehydrogenase Total Bilirubin Direct Bilirubin CK-MB (CK-2) C-Reactive Protein NT-Pro-B Natriuret Pep Total Protein Albumin Arterial Blood Glucose Urine WBC (Auto) Urine Creatinine 01/22/20 01/22/20 01/22/20 12:44 16:13 18:18 WBC RBC Hgb Hct MCHC RDW MCV MCH Lymph % (Auto) [place] % (Auto) [place] # Eos # Lymph # (Auto) [place] # (Auto) Eos # (Auto) Seg Neutrophils % Seg Neuts % (Manual) Baso # (Auto) Lymphocytes % (Manual) Monocytes % (Manual) Eosinophils % (Manual) Basophils % (Manual) Seg Neutrophils # Seg Neutrophils # Man Lymphocytes # (Manual) Monocytes # (Manual) Eosinophils # (Manual) Nucleated RBC % Basophils # (Manual) PT INR APTT Heparin Anti-Xa Level ABG pH POC ABG pO2 ABG pO2 ABG HCO3 ABG O2 Saturation ABG Base Excess POC ABG pCO2 ABG Hemoglobin ABG Oxyhemoglobin ABG Chloride ABG Glucose Oxyhemoglobin Sodium Potassium Chloride Carbon Dioxide BUN Creatinine Glucose POC Glucose 156 H 133 H 155 H Lactic Acid Calcium Phosphorus Magnesium AST ALT Lactate Dehydrogenase Total Bilirubin Direct Bilirubin CK-MB (CK-2) C-Reactive Protein NT-Pro-B Natriuret Pep Total Protein Albumin Arterial Blood Glucose Urine WBC (Auto) Urine Creatinine 01/22/20 01/23/20 01/23/20 23:22 05:37 12:59 WBC RBC Hgb Hct MCHC RDW MCV MCH Lymph % (Auto) [place] % (Auto) [place] # Eos # Lymph # (Auto) [place] # (Auto) Eos # (Auto) Seg Neutrophils % Seg Neuts % (Manual) Baso # (Auto) Lymphocytes % (Manual) Monocytes % (Manual) Eosinophils % (Manual) Basophils % (Manual) Seg Neutrophils # Seg Neutrophils # Man Lymphocytes # (Manual) Monocytes # (Manual) Eosinophils # (Manual) Nucleated RBC % Basophils # (Manual) PT INR APTT Heparin Anti-Xa Level ABG pH POC ABG pO2 ABG pO2 ABG HCO3 ABG O2 Saturation ABG Base Excess POC ABG pCO2 ABG Hemoglobin ABG Oxyhemoglobin ABG Chloride ABG Glucose Oxyhemoglobin Sodium Potassium Chloride Carbon Dioxide BUN Creatinine Glucose POC Glucose 148 H 163 H 175 H Lactic Acid Calcium Phosphorus Magnesium AST ALT Lactate Dehydrogenase Total Bilirubin Direct Bilirubin CK-MB (CK-2) C-Reactive Protein NT-Pro-B Natriuret Pep Total Protein Albumin Arterial Blood Glucose Urine WBC (Auto) Urine Creatinine 01/23/20 01/23/20 01/24/20 17:28 23:56 04:30 WBC RBC 3.46 L Hgb 8.8 L Hct 27.8 L MCHC RDW 18.2 H MCV 81 L MCH 25 L Lymph % (Auto) [place] % (Auto) 7.8 H [place] # Eos # Lymph # (Auto) [place] # (Auto) Eos # (Auto) Seg Neutrophils % Seg Neuts % (Manual) Baso # (Auto) Lymphocytes % (Manual) Monocytes % (Manual) Eosinophils % (Manual) Basophils % (Manual) Seg Neutrophils # Seg Neutrophils # Man Lymphocytes # (Manual) Monocytes # (Manual) Eosinophils # (Manual) Nucleated RBC % Basophils # (Manual) PT INR APTT Heparin Anti-Xa Level ABG pH POC ABG pO2 ABG pO2 ABG HCO3 ABG O2 Saturation ABG Base Excess POC ABG pCO2 ABG Hemoglobin ABG Oxyhemoglobin ABG Chloride ABG Glucose Oxyhemoglobin Sodium Potassium Chloride Carbon Dioxide BUN Creatinine Glucose POC Glucose 165 H 177 H Lactic Acid Calcium Phosphorus Magnesium AST ALT Lactate Dehydrogenase Total Bilirubin Direct Bilirubin CK-MB (CK-2) C-Reactive Protein NT-Pro-B Natriuret Pep Total Protein Albumin Arterial Blood Glucose Urine WBC (Auto) Urine Creatinine 01/24/20 01/24/20 01/24/20 04:30 07:18 12:06 WBC RBC Hgb Hct MCHC RDW MCV MCH Lymph % (Auto) [place] % (Auto) [place] # Eos # Lymph # (Auto) [place] # (Auto) Eos # (Auto) Seg Neutrophils % Seg Neuts % (Manual) Baso # (Auto) Lymphocytes % (Manual) Monocytes % (Manual) Eosinophils % (Manual) Basophils % (Manual) Seg Neutrophils # Seg Neutrophils # Man Lymphocytes # (Manual) Monocytes # (Manual) Eosinophils # (Manual) Nucleated RBC % Basophils # (Manual) PT INR APTT Heparin Anti-Xa Level ABG pH POC ABG pO2 ABG pO2 ABG HCO3 ABG O2 Saturation ABG Base Excess POC ABG pCO2 ABG Hemoglobin ABG Oxyhemoglobin ABG Chloride ABG Glucose Oxyhemoglobin Sodium Potassium Chloride 97.9 L Carbon Dioxide BUN 31 H Creatinine Glucose 146 H POC Glucose 151 H 133 H Lactic Acid Calcium Phosphorus Magnesium AST ALT Lactate Dehydrogenase Total Bilirubin Direct Bilirubin CK-MB (CK-2) C-Reactive Protein NT-Pro-B Natriuret Pep Total Protein Albumin Arterial Blood Glucose Urine WBC (Auto) Urine Creatinine 01/24/20 01/25/20 01/25/20 17:36 00:08 04:25 WBC RBC 3.50 L Hgb 8.7 L Hct 27.9 L MCHC 31 L RDW 18.2 H MCV 80 L MCH 25 L Lymph % (Auto) [place] % (Auto) 8.5 H [place] # Eos # Lymph # (Auto) [place] # (Auto) Eos # (Auto) Seg Neutrophils % Seg Neuts % (Manual) Baso # (Auto) Lymphocytes % (Manual) Monocytes % (Manual) Eosinophils % (Manual) Basophils % (Manual) Seg Neutrophils # Seg Neutrophils # Man Lymphocytes # (Manual) Monocytes # (Manual) Eosinophils # (Manual) Nucleated RBC % Basophils # (Manual) PT INR APTT Heparin Anti-Xa Level ABG pH POC ABG pO2 ABG pO2 ABG HCO3 ABG O2 Saturation ABG Base Excess POC ABG pCO2 ABG Hemoglobin ABG Oxyhemoglobin ABG Chloride ABG Glucose Oxyhemoglobin Sodium Potassium Chloride Carbon Dioxide BUN Creatinine Glucose POC Glucose 133 H 129 H Lactic Acid Calcium Phosphorus Magnesium AST ALT Lactate Dehydrogenase Total Bilirubin Direct Bilirubin CK-MB (CK-2) C-Reactive Protein NT-Pro-B Natriuret Pep Total Protein Albumin Arterial Blood Glucose Urine WBC (Auto) Urine Creatinine 01/25/20 01/25/20 01/25/20 04:25 05:38 11:52 WBC RBC Hgb Hct MCHC RDW MCV MCH Lymph % (Auto) [place] % (Auto) [place] # Eos # Lymph # (Auto) [place] # (Auto) Eos # (Auto) Seg Neutrophils % Seg Neuts % (Manual) Baso # (Auto) Lymphocytes % (Manual) Monocytes % (Manual) Eosinophils % (Manual) Basophils % (Manual) Seg Neutrophils # Seg Neutrophils # Man Lymphocytes # (Manual) Monocytes # (Manual) Eosinophils # (Manual) Nucleated RBC % Basophils # (Manual) PT INR APTT Heparin Anti-Xa Level ABG pH POC ABG pO2 ABG pO2 ABG HCO3 ABG O2 Saturation ABG Base Excess POC ABG pCO2 ABG Hemoglobin ABG Oxyhemoglobin ABG Chloride ABG Glucose Oxyhemoglobin Sodium Potassium Chloride Carbon Dioxide BUN 30 H Creatinine Glucose 134 H POC Glucose 129 H 134 H Lactic Acid Calcium Phosphorus Magnesium AST ALT Lactate Dehydrogenase Total Bilirubin Direct Bilirubin CK-MB (CK-2) C-Reactive Protein NT-Pro-B Natriuret Pep Total Protein Albumin Arterial Blood Glucose Urine WBC (Auto) Urine Creatinine 01/25/20 01/25/20 01/26/20 17:13 21:02 00:59 WBC RBC Hgb Hct MCHC RDW MCV MCH Lymph % (Auto) [place] % (Auto) [place] # Eos # Lymph # (Auto) [place] # (Auto) Eos # (Auto) Seg Neutrophils % Seg Neuts % (Manual) Baso # (Auto) Lymphocytes % (Manual) Monocytes % (Manual) Eosinophils % (Manual) Basophils % (Manual) Seg Neutrophils # Seg Neutrophils # Man Lymphocytes # (Manual) Monocytes # (Manual) Eosinophils # (Manual) Nucleated RBC % Basophils # (Manual) PT INR APTT Heparin Anti-Xa Level ABG pH POC ABG pO2 ABG pO2 57.5 L ABG HCO3 31.7 H ABG O2 Saturation 90.3 L ABG Base Excess 6.6 H POC ABG pCO2 ABG Hemoglobin 13.0 L ABG Oxyhemoglobin ABG Chloride ABG Glucose Oxyhemoglobin 87.5 L Sodium Potassium Chloride Carbon Dioxide BUN Creatinine Glucose POC Glucose 124 H 196 H Lactic Acid Calcium Phosphorus Magnesium AST ALT Lactate Dehydrogenase Total Bilirubin Direct Bilirubin CK-MB (CK-2) C-Reactive Protein NT-Pro-B Natriuret Pep Total Protein Albumin Arterial Blood Glucose Urine WBC (Auto) Urine Creatinine 01/26/20 01/26/20 01/26/20 03:20 05:46 12:46 WBC RBC Hgb 9.2 L Hct 29.4 L MCHC RDW MCV MCH Lymph % (Auto) [place] % (Auto) [place] # Eos # Lymph # (Auto) [place] # (Auto) Eos # (Auto) Seg Neutrophils % Seg Neuts % (Manual) Baso # (Auto) Lymphocytes % (Manual) Monocytes % (Manual) Eosinophils % (Manual) Basophils % (Manual) Seg Neutrophils # Seg Neutrophils # Man Lymphocytes # (Manual) Monocytes # (Manual) Eosinophils # (Manual) Nucleated RBC % Basophils # (Manual) PT INR APTT Heparin Anti-Xa Level ABG pH POC ABG pO2 ABG pO2 ABG HCO3 ABG O2 Saturation ABG Base Excess POC ABG pCO2 ABG Hemoglobin ABG Oxyhemoglobin ABG Chloride ABG Glucose Oxyhemoglobin Sodium Potassium Chloride Carbon Dioxide BUN Creatinine Glucose POC Glucose 141 H 122 H Lactic Acid Calcium Phosphorus Magnesium AST ALT Lactate Dehydrogenase Total Bilirubin Direct Bilirubin CK-MB (CK-2) C-Reactive Protein NT-Pro-B Natriuret Pep Total Protein Albumin Arterial Blood Glucose Urine WBC (Auto) Urine Creatinine 01/26/20 01/26/20 01/27/20 18:03 23:55 04:47 WBC RBC Hgb Hct MCHC RDW MCV MCH Lymph % (Auto) [place] % (Auto) [place] # Eos # Lymph # (Auto) [place] # (Auto) Eos # (Auto) Seg Neutrophils % Seg Neuts % (Manual) Baso # (Auto) Lymphocytes % (Manual) Monocytes % (Manual) Eosinophils % (Manual) Basophils % (Manual) Seg Neutrophils # Seg Neutrophils # Man Lymphocytes # (Manual) Monocytes # (Manual) Eosinophils # (Manual) Nucleated RBC % Basophils # (Manual) PT INR APTT Heparin Anti-Xa Level ABG pH POC ABG pO2 ABG pO2 ABG HCO3 ABG O2 Saturation ABG Base Excess POC ABG pCO2 ABG Hemoglobin ABG Oxyhemoglobin ABG Chloride ABG Glucose Oxyhemoglobin Sodium Potassium Chloride Carbon Dioxide BUN 30 H Creatinine 0.7 L Glucose 135 H POC Glucose 142 H 159 H Lactic Acid Calcium Phosphorus Magnesium AST ALT Lactate Dehydrogenase Total Bilirubin Direct Bilirubin CK-MB (CK-2) C-Reactive Protein NT-Pro-B Natriuret Pep Total Protein Albumin Arterial Blood Glucose Urine WBC (Auto) Urine Creatinine 01/27/20 01/27/20 01/27/20 05:43 12:06 17:16 WBC RBC Hgb Hct MCHC RDW MCV MCH Lymph % (Auto) [place] % (Auto) [place] # Eos # Lymph # (Auto) [place] # (Auto) Eos # (Auto) Seg Neutrophils % Seg Neuts % (Manual) Baso # (Auto) Lymphocytes % (Manual) Monocytes % (Manual) Eosinophils % (Manual) Basophils % (Manual) Seg Neutrophils # Seg Neutrophils # Man Lymphocytes # (Manual) Monocytes # (Manual) Eosinophils # (Manual) Nucleated RBC % Basophils # (Manual) PT INR APTT Heparin Anti-Xa Level ABG pH POC ABG pO2 ABG pO2 ABG HCO3 ABG O2 Saturation ABG Base Excess POC ABG pCO2 ABG Hemoglobin ABG Oxyhemoglobin ABG Chloride ABG Glucose Oxyhemoglobin Sodium Potassium Chloride Carbon Dioxide BUN Creatinine Glucose POC Glucose 143 H 142 H 128 H Lactic Acid Calcium Phosphorus Magnesium AST ALT Lactate Dehydrogenase Total Bilirubin Direct Bilirubin CK-MB (CK-2) C-Reactive Protein NT-Pro-B Natriuret Pep Total Protein Albumin Arterial Blood Glucose Urine WBC (Auto) Urine Creatinine 01/27/20 01/28/20 01/28/20 23:55 04:37 05:55 WBC RBC Hgb 9.4 L Hct 29.9 L MCHC RDW MCV MCH Lymph % (Auto) [place] % (Auto) [place] # Eos # Lymph # (Auto) [place] # (Auto) Eos # (Auto) Seg Neutrophils % Seg Neuts % (Manual) Baso # (Auto) Lymphocytes % (Manual) Monocytes % (Manual) Eosinophils % (Manual) Basophils % (Manual) Seg Neutrophils # Seg Neutrophils # Man Lymphocytes # (Manual) Monocytes # (Manual) Eosinophils # (Manual) Nucleated RBC % Basophils # (Manual) PT INR APTT Heparin Anti-Xa Level ABG pH POC ABG pO2 ABG pO2 ABG HCO3 ABG O2 Saturation ABG Base Excess POC ABG pCO2 ABG Hemoglobin ABG Oxyhemoglobin ABG Chloride ABG Glucose Oxyhemoglobin Sodium Potassium Chloride Carbon Dioxide BUN Creatinine Glucose POC Glucose 166 H 169 H Lactic Acid Calcium Phosphorus Magnesium AST ALT Lactate Dehydrogenase Total Bilirubin Direct Bilirubin CK-MB (CK-2) C-Reactive Protein NT-Pro-B Natriuret Pep Total Protein Albumin Arterial Blood Glucose Urine WBC (Auto) Urine Creatinine 01/28/20 01/28/20 01/28/20 11:58 17:26 23:46 WBC RBC Hgb Hct MCHC RDW MCV MCH Lymph % (Auto) [place] % (Auto) [place] # Eos # Lymph # (Auto) [place] # (Auto) Eos # (Auto) Seg Neutrophils % Seg Neuts % (Manual) Baso # (Auto) Lymphocytes % (Manual) Monocytes % (Manual) Eosinophils % (Manual) Basophils % (Manual) Seg Neutrophils # Seg Neutrophils # Man Lymphocytes # (Manual) Monocytes # (Manual) Eosinophils # (Manual) Nucleated RBC % Basophils # (Manual) PT INR APTT Heparin Anti-Xa Level ABG pH POC ABG pO2 ABG pO2 ABG HCO3 ABG O2 Saturation ABG Base Excess POC ABG pCO2 ABG Hemoglobin ABG Oxyhemoglobin ABG Chloride ABG Glucose Oxyhemoglobin Sodium Potassium Chloride Carbon Dioxide BUN Creatinine Glucose POC Glucose 130 H 126 H 150 H Lactic Acid Calcium Phosphorus Magnesium AST ALT Lactate Dehydrogenase Total Bilirubin Direct Bilirubin CK-MB (CK-2) C-Reactive Protein NT-Pro-B Natriuret Pep Total Protein Albumin Arterial Blood Glucose Urine WBC (Auto) Urine Creatinine 01/29/20 01/29/20 01/29/20 04:55 06:00 12:28 WBC RBC Hgb Hct MCHC RDW MCV MCH Lymph % (Auto) [place] % (Auto) [place] # Eos # Lymph # (Auto) [place] # (Auto) Eos # (Auto) Seg Neutrophils % Seg Neuts % (Manual) Baso # (Auto) Lymphocytes % (Manual) Monocytes % (Manual) Eosinophils % (Manual) Basophils % (Manual) Seg Neutrophils # Seg Neutrophils # Man Lymphocytes # (Manual) Monocytes # (Manual) Eosinophils # (Manual) Nucleated RBC % Basophils # (Manual) PT INR APTT Heparin Anti-Xa Level ABG pH POC ABG pO2 ABG pO2 ABG HCO3 ABG O2 Saturation ABG Base Excess POC ABG pCO2 ABG Hemoglobin ABG Oxyhemoglobin ABG Chloride ABG Glucose Oxyhemoglobin Sodium Potassium Chloride Carbon Dioxide 34 H BUN Creatinine 0.6 L Glucose 152 H POC Glucose 157 H 156 H Lactic Acid Calcium Phosphorus Magnesium AST ALT Lactate Dehydrogenase Total Bilirubin Direct Bilirubin CK-MB (CK-2) C-Reactive Protein NT-Pro-B Natriuret Pep Total Protein Albumin Arterial Blood Glucose Urine WBC (Auto) Urine Creatinine 01/29/20 01/30/20 01/30/20 19:06 00:29 05:39 WBC RBC Hgb Hct MCHC RDW MCV MCH Lymph % (Auto) [place] % (Auto) [place] # Eos # Lymph # (Auto) [place] # (Auto) Eos # (Auto) Seg Neutrophils % Seg Neuts % (Manual) Baso # (Auto) Lymphocytes % (Manual) Monocytes % (Manual) Eosinophils % (Manual) Basophils % (Manual) Seg Neutrophils # Seg Neutrophils # Man Lymphocytes # (Manual) Monocytes # (Manual) Eosinophils # (Manual) Nucleated RBC % Basophils # (Manual) PT INR APTT Heparin Anti-Xa Level ABG pH POC ABG pO2 ABG pO2 ABG HCO3 ABG O2 Saturation ABG Base Excess POC ABG pCO2 ABG Hemoglobin ABG Oxyhemoglobin ABG Chloride ABG Glucose Oxyhemoglobin Sodium Potassium Chloride Carbon Dioxide BUN Creatinine Glucose POC Glucose 152 H 132 H 159 H Lactic Acid Calcium Phosphorus Magnesium AST ALT Lactate Dehydrogenase Total Bilirubin Direct Bilirubin CK-MB (CK-2) C-Reactive Protein NT-Pro-B Natriuret Pep Total Protein Albumin Arterial Blood Glucose Urine WBC (Auto) Urine Creatinine 01/30/20 01/30/20 01/30/20 12:27 17:42 23:28 WBC RBC Hgb Hct MCHC RDW MCV MCH Lymph % (Auto) [place] % (Auto) [place] # Eos # Lymph # (Auto) [place] # (Auto) Eos # (Auto) Seg Neutrophils % Seg Neuts % (Manual) Baso # (Auto) Lymphocytes % (Manual) Monocytes % (Manual) Eosinophils % (Manual) Basophils % (Manual) Seg Neutrophils # Seg Neutrophils # Man Lymphocytes # (Manual) Monocytes # (Manual) Eosinophils # (Manual) Nucleated RBC % Basophils # (Manual) PT INR APTT Heparin Anti-Xa Level ABG pH POC ABG pO2 ABG pO2 ABG HCO3 ABG O2 Saturation ABG Base Excess POC ABG pCO2 ABG Hemoglobin ABG Oxyhemoglobin ABG Chloride ABG Glucose Oxyhemoglobin Sodium Potassium Chloride Carbon Dioxide BUN Creatinine Glucose POC Glucose 151 H 144 H 164 H Lactic Acid Calcium Phosphorus Magnesium AST ALT Lactate Dehydrogenase Total Bilirubin Direct Bilirubin CK-MB (CK-2) C-Reactive Protein NT-Pro-B Natriuret Pep Total Protein Albumin Arterial Blood Glucose Urine WBC (Auto) Urine Creatinine 01/31/20 01/31/20 01/31/20 05:51 11:51 18:06 WBC RBC Hgb Hct MCHC RDW MCV MCH Lymph % (Auto) [place] % (Auto) [place] # Eos # Lymph # (Auto) [place] # (Auto) Eos # (Auto) Seg Neutrophils % Seg Neuts % (Manual) Baso # (Auto) Lymphocytes % (Manual) Monocytes % (Manual) Eosinophils % (Manual) Basophils % (Manual) Seg Neutrophils # Seg Neutrophils # Man Lymphocytes # (Manual) Monocytes # (Manual) Eosinophils # (Manual) Nucleated RBC % Basophils # (Manual) PT INR APTT Heparin Anti-Xa Level ABG pH POC ABG pO2 ABG pO2 ABG HCO3 ABG O2 Saturation ABG Base Excess POC ABG pCO2 ABG Hemoglobin ABG Oxyhemoglobin ABG Chloride ABG Glucose Oxyhemoglobin Sodium Potassium Chloride Carbon Dioxide BUN Creatinine Glucose POC Glucose 131 H 167 H 210 H Lactic Acid Calcium Phosphorus Magnesium AST ALT Lactate Dehydrogenase Total Bilirubin Direct Bilirubin CK-MB (CK-2) C-Reactive Protein NT-Pro-B Natriuret Pep Total Protein Albumin Arterial Blood Glucose Urine WBC (Auto) Urine Creatinine 01/31/20 01/31/20 02/01/20 19:24 Unknown 00:34 WBC RBC Hgb Hct MCHC RDW MCV MCH Lymph % (Auto) [place] % (Auto) [place] # Eos # Lymph # (Auto) [place] # (Auto) Eos # (Auto) Seg Neutrophils % Seg Neuts % (Manual) Baso # (Auto) Lymphocytes % (Manual) Monocytes % (Manual) Eosinophils % (Manual) Basophils % (Manual) Seg Neutrophils # Seg Neutrophils # Man Lymphocytes # (Manual) Monocytes # (Manual) Eosinophils # (Manual) Nucleated RBC % Basophils # (Manual) PT INR APTT Heparin Anti-Xa Level ABG pH POC ABG pO2 ABG pO2 ABG HCO3 ABG O2 Saturation ABG Base Excess POC ABG pCO2 ABG Hemoglobin ABG Oxyhemoglobin ABG Chloride ABG Glucose Oxyhemoglobin Sodium Potassium Chloride 95.3 L Carbon Dioxide 33 H BUN 36 H Creatinine Glucose 187 H POC Glucose 116 H Lactic Acid Calcium Phosphorus Magnesium AST ALT Lactate Dehydrogenase Total Bilirubin Direct Bilirubin CK-MB (CK-2) C-Reactive Protein NT-Pro-B Natriuret Pep Total Protein Albumin Arterial Blood Glucose Urine WBC (Auto) Urine Creatinine 57.4 H 02/01/20 02/01/20 02/01/20 05:24 10:40 12:29 WBC RBC Hgb Hct MCHC RDW MCV MCH Lymph % (Auto) [place] % (Auto) [place] # Eos # Lymph # (Auto) [place] # (Auto) Eos # (Auto) Seg Neutrophils % Seg Neuts % (Manual) Baso # (Auto) Lymphocytes % (Manual) Monocytes % (Manual) Eosinophils % (Manual) Basophils % (Manual) Seg Neutrophils # Seg Neutrophils # Man Lymphocytes # (Manual) Monocytes # (Manual) Eosinophils # (Manual) Nucleated RBC % Basophils # (Manual) PT INR APTT Heparin Anti-Xa Level ABG pH POC ABG pO2 ABG pO2 ABG HCO3 ABG O2 Saturation ABG Base Excess POC ABG pCO2 ABG Hemoglobin ABG Oxyhemoglobin ABG Chloride ABG Glucose Oxyhemoglobin Sodium Potassium Chloride Carbon Dioxide BUN Creatinine Glucose POC Glucose 142 H 165 H 151 H Lactic Acid Calcium Phosphorus Magnesium AST ALT Lactate Dehydrogenase Total Bilirubin Direct Bilirubin CK-MB (CK-2) C-Reactive Protein NT-Pro-B Natriuret Pep Total Protein Albumin Arterial Blood Glucose Urine WBC (Auto) Urine Creatinine 02/01/20 02/01/20 02/02/20 17:16 23:23 06:36 WBC RBC Hgb Hct MCHC RDW MCV MCH Lymph % (Auto) [place] % (Auto) [place] # Eos # Lymph # (Auto) [place] # (Auto) Eos # (Auto) Seg Neutrophils % Seg Neuts % (Manual) Baso # (Auto) Lymphocytes % (Manual) Monocytes % (Manual) Eosinophils % (Manual) Basophils % (Manual) Seg Neutrophils # Seg Neutrophils # Man Lymphocytes # (Manual) Monocytes # (Manual) Eosinophils # (Manual) Nucleated RBC % Basophils # (Manual) PT INR APTT Heparin Anti-Xa Level ABG pH POC ABG pO2 ABG pO2 ABG HCO3 ABG O2 Saturation ABG Base Excess POC ABG pCO2 ABG Hemoglobin ABG Oxyhemoglobin ABG Chloride ABG Glucose Oxyhemoglobin Sodium Potassium Chloride Carbon Dioxide BUN Creatinine Glucose POC Glucose 137 H 145 H 181 H Lactic Acid Calcium Phosphorus Magnesium AST ALT Lactate Dehydrogenase Total Bilirubin Direct Bilirubin CK-MB (CK-2) C-Reactive Protein NT-Pro-B Natriuret Pep Total Protein Albumin Arterial Blood Glucose Urine WBC (Auto) Urine Creatinine 02/02/20 02/02/20 02/02/20 10:01 12:05 17:54 WBC RBC Hgb Hct MCHC RDW MCV MCH Lymph % (Auto) [place] % (Auto) [place] # Eos # Lymph # (Auto) [place] # (Auto) Eos # (Auto) Seg Neutrophils % Seg Neuts % (Manual) Baso # (Auto) Lymphocytes % (Manual) Monocytes % (Manual) Eosinophils % (Manual) Basophils % (Manual) Seg Neutrophils # Seg Neutrophils # Man Lymphocytes # (Manual) Monocytes # (Manual) Eosinophils # (Manual) Nucleated RBC % Basophils # (Manual) PT INR APTT Heparin Anti-Xa Level ABG pH POC ABG pO2 ABG pO2 ABG HCO3 ABG O2 Saturation ABG Base Excess POC ABG pCO2 ABG Hemoglobin ABG Oxyhemoglobin ABG Chloride ABG Glucose Oxyhemoglobin Sodium Potassium Chloride 95.3 L Carbon Dioxide BUN 44 H Creatinine Glucose 234 H POC Glucose 184 H 127 H Lactic Acid Calcium Phosphorus Magnesium AST 363 H ALT 457 H Lactate Dehydrogenase Total Bilirubin Direct Bilirubin CK-MB (CK-2) C-Reactive Protein NT-Pro-B Natriuret Pep Total Protein Albumin 3.0 L Arterial Blood Glucose Urine WBC (Auto) Urine Creatinine 02/02/20 02/03/20 02/03/20 23:47 05:32 07:04 WBC 13.0 H RBC Hgb 9.5 L Hct 30.8 L MCHC 31 L RDW 19.6 H MCV 81 L MCH 25 L Lymph % (Auto) [place] % (Auto) 9.4 H [place] # Eos # Lymph # (Auto) [place] # (Auto) 1.2 H Eos # (Auto) Seg Neutrophils % 72.3 H Seg Neuts % (Manual) Baso # (Auto) Lymphocytes % (Manual) Monocytes % (Manual) Eosinophils % (Manual) Basophils % (Manual) Seg Neutrophils # 9.4 H Seg Neutrophils # Man Lymphocytes # (Manual) Monocytes # (Manual) Eosinophils # (Manual) Nucleated RBC % Basophils # (Manual) PT INR APTT Heparin Anti-Xa Level ABG pH POC ABG pO2 ABG pO2 ABG HCO3 ABG O2 Saturation ABG Base Excess POC ABG pCO2 ABG Hemoglobin ABG Oxyhemoglobin ABG Chloride ABG Glucose Oxyhemoglobin Sodium Potassium Chloride Carbon Dioxide BUN Creatinine Glucose POC Glucose 124 H 129 H Lactic Acid Calcium Phosphorus Magnesium AST ALT Lactate Dehydrogenase Total Bilirubin Direct Bilirubin CK-MB (CK-2) C-Reactive Protein NT-Pro-B Natriuret Pep Total Protein Albumin Arterial Blood Glucose Urine WBC (Auto) Urine Creatinine 02/03/20 02/03/20 02/03/20 07:04 11:32 12:49 WBC RBC Hgb Hct MCHC RDW MCV MCH Lymph % (Auto) [place] % (Auto) [place] # Eos # Lymph # (Auto) [place] # (Auto) Eos # (Auto) Seg Neutrophils % Seg Neuts % (Manual) Baso # (Auto) Lymphocytes % (Manual) Monocytes % (Manual) Eosinophils % (Manual) Basophils % (Manual) Seg Neutrophils # Seg Neutrophils # Man Lymphocytes # (Manual) Monocytes # (Manual) Eosinophils # (Manual) Nucleated RBC % Basophils # (Manual) PT INR APTT Heparin Anti-Xa Level ABG pH POC ABG pO2 ABG pO2 ABG HCO3 ABG O2 Saturation ABG Base Excess POC ABG pCO2 ABG Hemoglobin ABG Oxyhemoglobin ABG Chloride ABG Glucose Oxyhemoglobin Sodium Potassium Chloride 97.9 L Carbon Dioxide 33 H BUN 39 H Creatinine Glucose 119 H POC Glucose 138 H Lactic Acid Calcium Phosphorus Magnesium 2.60 H AST ALT Lactate Dehydrogenase Total Bilirubin Direct Bilirubin CK-MB (CK-2) C-Reactive Protein NT-Pro-B Natriuret Pep Total Protein Albumin Arterial Blood Glucose Urine WBC (Auto) Urine Creatinine 02/03/20 02/04/20 02/04/20 18:28 16:24 16:24 WBC RBC 3.38 L Hgb 8.6 L Hct 26.9 L MCHC RDW 19.5 H MCV 80 L MCH 26 L Lymph % (Auto) [place] % (Auto) [place] # Eos # Lymph # (Auto) [place] # (Auto) Eos # (Auto) Seg Neutrophils % Seg Neuts % (Manual) Baso # (Auto) Lymphocytes % (Manual) Monocytes % (Manual) Eosinophils % (Manual) Basophils % (Manual) Seg Neutrophils # Seg Neutrophils # Man Lymphocytes # (Manual) Monocytes # (Manual) Eosinophils # (Manual) Nucleated RBC % Basophils # (Manual) PT INR APTT Heparin Anti-Xa Level ABG pH POC ABG pO2 ABG pO2 ABG HCO3 ABG O2 Saturation ABG Base Excess POC ABG pCO2 ABG Hemoglobin ABG Oxyhemoglobin ABG Chloride ABG Glucose Oxyhemoglobin Sodium Potassium 3.4 L Chloride Carbon Dioxide 31 H BUN 37 H Creatinine Glucose 70 L POC Glucose 118 H Lactic Acid Calcium Phosphorus Magnesium AST 169 H ALT 394 H Lactate Dehydrogenase Total Bilirubin 1.50 H Direct Bilirubin CK-MB (CK-2) C-Reactive Protein NT-Pro-B Natriuret Pep Total Protein Albumin 2.9 L Arterial Blood Glucose Urine WBC (Auto) Urine Creatinine 02/05/20 02/05/20 02/05/20 00:41 06:37 17:14 WBC RBC Hgb Hct MCHC RDW MCV MCH Lymph % (Auto) [place] % (Auto) [place] # Eos # Lymph # (Auto) [place] # (Auto) Eos # (Auto) Seg Neutrophils % Seg Neuts % (Manual) Baso # (Auto) Lymphocytes % (Manual) Monocytes % (Manual) Eosinophils % (Manual) Basophils % (Manual) Seg Neutrophils # Seg Neutrophils # Man Lymphocytes # (Manual) Monocytes # (Manual) Eosinophils # (Manual) Nucleated RBC % Basophils # (Manual) PT INR APTT Heparin Anti-Xa Level ABG pH POC ABG pO2 ABG pO2 ABG HCO3 ABG O2 Saturation ABG Base Excess POC ABG pCO2 ABG Hemoglobin ABG Oxyhemoglobin ABG Chloride ABG Glucose Oxyhemoglobin Sodium Potassium 3.1 L Chloride Carbon Dioxide 35 H BUN 32 H Creatinine 0.7 L Glucose POC Glucose 69 L 127 H Lactic Acid Calcium Phosphorus Magnesium AST 134 H ALT 352 H Lactate Dehydrogenase Total Bilirubin 1.60 H Direct Bilirubin CK-MB (CK-2) C-Reactive Protein NT-Pro-B Natriuret Pep Total Protein Albumin 2.9 L Arterial Blood Glucose Urine WBC (Auto) Urine Creatinine 02/05/20 02/06/20 02/06/20 23:43 05:32 08:01 WBC RBC Hgb Hct MCHC RDW MCV MCH Lymph % (Auto) [place] % (Auto) [place] # Eos # Lymph # (Auto) [place] # (Auto) Eos # (Auto) Seg Neutrophils % Seg Neuts % (Manual) Baso # (Auto) Lymphocytes % (Manual) Monocytes % (Manual) Eosinophils % (Manual) Basophils % (Manual) Seg Neutrophils # Seg Neutrophils # Man Lymphocytes # (Manual) Monocytes # (Manual) Eosinophils # (Manual) Nucleated RBC % Basophils # (Manual) PT INR APTT Heparin Anti-Xa Level ABG pH POC ABG pO2 ABG pO2 ABG HCO3 ABG O2 Saturation ABG Base Excess POC ABG pCO2 ABG Hemoglobin ABG Oxyhemoglobin ABG Chloride ABG Glucose Oxyhemoglobin Sodium Potassium Chloride Carbon Dioxide BUN 40 H Creatinine Glucose 132 H POC Glucose 129 H 131 H Lactic Acid Calcium Phosphorus Magnesium AST ALT Lactate Dehydrogenase Total Bilirubin Direct Bilirubin CK-MB (CK-2) C-Reactive Protein NT-Pro-B Natriuret Pep Total Protein Albumin Arterial Blood Glucose Urine WBC (Auto) Urine Creatinine 02/06/20 02/06/20 02/06/20 11:51 16:28 17:32 WBC RBC Hgb Hct MCHC RDW MCV MCH Lymph % (Auto) [place] % (Auto) [place] # Eos # Lymph # (Auto) [place] # (Auto) Eos # (Auto) Seg Neutrophils % Seg Neuts % (Manual) Baso # (Auto) Lymphocytes % (Manual) Monocytes % (Manual) Eosinophils % (Manual) Basophils % (Manual) Seg Neutrophils # Seg Neutrophils # Man Lymphocytes # (Manual) Monocytes # (Manual) Eosinophils # (Manual) Nucleated RBC % Basophils # (Manual) PT INR APTT Heparin Anti-Xa Level ABG pH POC ABG pO2 ABG pO2 ABG HCO3 ABG O2 Saturation ABG Base Excess POC ABG pCO2 ABG Hemoglobin ABG Oxyhemoglobin ABG Chloride ABG Glucose Oxyhemoglobin Sodium Potassium Chloride Carbon Dioxide BUN Creatinine Glucose POC Glucose 167 H 129 H Lactic Acid Calcium Phosphorus Magnesium AST 824 H ALT 948 H Lactate Dehydrogenase Total Bilirubin 1.70 H Direct Bilirubin 1.2 H CK-MB (CK-2) C-Reactive Protein NT-Pro-B Natriuret Pep Total Protein Albumin 2.9 L Arterial Blood Glucose Urine WBC (Auto) Urine Creatinine 02/07/20 02/07/20 02/07/20 00:11 04:57 04:57 WBC RBC Hgb 9.2 L Hct 29.7 L MCHC 31 L RDW 20.2 H MCV 80 L MCH 25 L Lymph % (Auto) [place] % (Auto) [place] # Eos # Lymph # (Auto) [place] # (Auto) Eos # (Auto) Seg Neutrophils % Seg Neuts % (Manual) Baso # (Auto) Lymphocytes % (Manual) Monocytes % (Manual) Eosinophils % (Manual) Basophils % (Manual) Seg Neutrophils # Seg Neutrophils # Man Lymphocytes # (Manual) Monocytes # (Manual) Eosinophils # (Manual) Nucleated RBC % Basophils # (Manual) PT INR APTT Heparin Anti-Xa Level ABG pH POC ABG pO2 ABG pO2 ABG HCO3 ABG O2 Saturation ABG Base Excess POC ABG pCO2 ABG Hemoglobin ABG Oxyhemoglobin ABG Chloride ABG Glucose Oxyhemoglobin Sodium Potassium 3.4 L D Chloride Carbon Dioxide 32 H BUN 39 H Creatinine Glucose 106 H POC Glucose 121 H Lactic Acid Calcium Phosphorus Magnesium AST ALT Lactate Dehydrogenase Total Bilirubin Direct Bilirubin CK-MB (CK-2) C-Reactive Protein NT-Pro-B Natriuret Pep Total Protein Albumin Arterial Blood Glucose Urine WBC (Auto) Urine Creatinine 02/07/20 02/07/20 02/07/20 15:03 15:03 17:11 WBC RBC Hgb Hct MCHC RDW MCV MCH Lymph % (Auto) [place] % (Auto) [place] # Eos # Lymph # (Auto) [place] # (Auto) Eos # (Auto) Seg Neutrophils % Seg Neuts % (Manual) Baso # (Auto) Lymphocytes % (Manual) Monocytes % (Manual) Eosinophils % (Manual) Basophils % (Manual) Seg Neutrophils # Seg Neutrophils # Man Lymphocytes # (Manual) Monocytes # (Manual) Eosinophils # (Manual) Nucleated RBC % Basophils # (Manual) PT 27.0 H INR 2.46 H APTT Heparin Anti-Xa Level ABG pH POC ABG pO2 ABG pO2 ABG HCO3 ABG O2 Saturation ABG Base Excess POC ABG pCO2 ABG Hemoglobin ABG Oxyhemoglobin ABG Chloride ABG Glucose Oxyhemoglobin Sodium Potassium Chloride Carbon Dioxide BUN Creatinine Glucose POC Glucose 109 H Lactic Acid Calcium Phosphorus Magnesium AST 424 H ALT 796 H Lactate Dehydrogenase Total Bilirubin 1.60 H Direct Bilirubin 1.2 H CK-MB (CK-2) C-Reactive Protein NT-Pro-B Natriuret Pep Total Protein Albumin 2.9 L Arterial Blood Glucose Urine WBC (Auto) Urine Creatinine 02/08/20 02/08/20 02/08/20 12:14 17:44 19:00 WBC RBC Hgb Hct MCHC RDW MCV MCH Lymph % (Auto) [place] % (Auto) [place] # Eos # Lymph # (Auto) [place] # (Auto) Eos # (Auto) Seg Neutrophils % Seg Neuts % (Manual) Baso # (Auto) Lymphocytes % (Manual) Monocytes % (Manual) Eosinophils % (Manual) Basophils % (Manual) Seg Neutrophils # Seg Neutrophils # Man Lymphocytes # (Manual) Monocytes # (Manual) Eosinophils # (Manual) Nucleated RBC % Basophils # (Manual) PT INR APTT Heparin Anti-Xa Level ABG pH POC ABG pO2 ABG pO2 ABG HCO3 ABG O2 Saturation ABG Base Excess POC ABG pCO2 ABG Hemoglobin ABG Oxyhemoglobin ABG Chloride ABG Glucose Oxyhemoglobin Sodium Potassium Chloride Carbon Dioxide BUN Creatinine Glucose POC Glucose 111 H 107 H Lactic Acid Calcium Phosphorus Magnesium AST 309 H ALT 650 H Lactate Dehydrogenase Total Bilirubin 1.30 H Direct Bilirubin 0.9 H CK-MB (CK-2) C-Reactive Protein NT-Pro-B Natriuret Pep Total Protein 6.2 L Albumin 2.7 L Arterial Blood Glucose Urine WBC (Auto) Urine Creatinine 02/09/20 02/09/20 02/09/20 05:41 12:28 18:07 WBC RBC Hgb Hct MCHC RDW MCV MCH Lymph % (Auto) [place] % (Auto) [place] # Eos # Lymph # (Auto) [place] # (Auto) Eos # (Auto) Seg Neutrophils % Seg Neuts % (Manual) Baso # (Auto) Lymphocytes % (Manual) Monocytes % (Manual) Eosinophils % (Manual) Basophils % (Manual) Seg Neutrophils # Seg Neutrophils # Man Lymphocytes # (Manual) Monocytes # (Manual) Eosinophils # (Manual) Nucleated RBC % Basophils # (Manual) PT INR APTT Heparin Anti-Xa Level ABG pH POC ABG pO2 ABG pO2 ABG HCO3 ABG O2 Saturation ABG Base Excess POC ABG pCO2 ABG Hemoglobin ABG Oxyhemoglobin ABG Chloride ABG Glucose Oxyhemoglobin Sodium Potassium Chloride Carbon Dioxide BUN Creatinine Glucose POC Glucose 113 H 140 H 143 H Lactic Acid Calcium Phosphorus Magnesium AST ALT Lactate Dehydrogenase Total Bilirubin Direct Bilirubin CK-MB (CK-2) C-Reactive Protein NT-Pro-B Natriuret Pep Total Protein Albumin Arterial Blood Glucose Urine WBC (Auto) Urine Creatinine 02/09/20 02/09/20 02/10/20 21:40 23:45 06:00 WBC RBC Hgb Hct MCHC RDW MCV MCH Lymph % (Auto) [place] % (Auto) [place] # Eos # Lymph # (Auto) [place] # (Auto) Eos # (Auto) Seg Neutrophils % Seg Neuts % (Manual) Baso # (Auto) Lymphocytes % (Manual) Monocytes % (Manual) Eosinophils % (Manual) Basophils % (Manual) Seg Neutrophils # Seg Neutrophils # Man Lymphocytes # (Manual) Monocytes # (Manual) Eosinophils # (Manual) Nucleated RBC % Basophils # (Manual) PT INR APTT Heparin Anti-Xa Level ABG pH POC ABG pO2 ABG pO2 59.8 L ABG HCO3 33.3 H ABG O2 Saturation 88.9 L ABG Base Excess 7.4 H POC ABG pCO2 ABG Hemoglobin 10.4 L ABG Oxyhemoglobin ABG Chloride ABG Glucose Oxyhemoglobin 86.3 L Sodium Potassium Chloride Carbon Dioxide BUN Creatinine Glucose POC Glucose 127 H 114 H Lactic Acid Calcium Phosphorus Magnesium AST ALT Lactate Dehydrogenase Total Bilirubin Direct Bilirubin CK-MB (CK-2) C-Reactive Protein NT-Pro-B Natriuret Pep Total Protein Albumin Arterial Blood Glucose Urine WBC (Auto) Urine Creatinine 02/10/20 02/10/20 02/10/20 07:40 07:40 13:38 WBC 11.5 H RBC Hgb 10.6 L Hct 34.7 L MCHC 31 L RDW 19.8 H MCV 79 L MCH 24 L Lymph % (Auto) [place] % (Auto) 9.2 H [place] # Eos # Lymph # (Auto) [place] # (Auto) 1.1 H Eos # (Auto) Seg Neutrophils % Seg Neuts % (Manual) Baso # (Auto) Lymphocytes % (Manual) Monocytes % (Manual) Eosinophils % (Manual) Basophils % (Manual) Seg Neutrophils # Seg Neutrophils # Man Lymphocytes # (Manual) Monocytes # (Manual) Eosinophils # (Manual) Nucleated RBC % Basophils # (Manual) PT INR APTT Heparin Anti-Xa Level ABG pH POC ABG pO2 ABG pO2 ABG HCO3 ABG O2 Saturation ABG Base Excess POC ABG pCO2 ABG Hemoglobin ABG Oxyhemoglobin ABG Chloride ABG Glucose Oxyhemoglobin Sodium 151 H Potassium Chloride 107.2 H Carbon Dioxide 36 H BUN 25 H Creatinine 0.7 L Glucose 114 H POC Glucose 116 H Lactic Acid Calcium Phosphorus Magnesium 2.40 H AST ALT Lactate Dehydrogenase Total Bilirubin Direct Bilirubin CK-MB (CK-2) C-Reactive Protein NT-Pro-B Natriuret Pep Total Protein Albumin Arterial Blood Glucose Urine WBC (Auto) Urine Creatinine 02/10/20 02/11/20 02/11/20 17:44 05:47 12:21 WBC RBC Hgb Hct MCHC RDW MCV MCH Lymph % (Auto) [place] % (Auto) [place] # Eos # Lymph # (Auto) [place] # (Auto) Eos # (Auto) Seg Neutrophils % Seg Neuts % (Manual) Baso # (Auto) Lymphocytes % (Manual) Monocytes % (Manual) Eosinophils % (Manual) Basophils % (Manual) Seg Neutrophils # Seg Neutrophils # Man Lymphocytes # (Manual) Monocytes # (Manual) Eosinophils # (Manual) Nucleated RBC % Basophils # (Manual) PT INR APTT Heparin Anti-Xa Level ABG pH POC ABG pO2 ABG pO2 ABG HCO3 ABG O2 Saturation ABG Base Excess POC ABG pCO2 ABG Hemoglobin ABG Oxyhemoglobin ABG Chloride ABG Glucose Oxyhemoglobin Sodium Potassium Chloride Carbon Dioxide BUN Creatinine Glucose POC Glucose 139 H 173 H 143 H Lactic Acid Calcium Phosphorus Magnesium AST ALT Lactate Dehydrogenase Total Bilirubin Direct Bilirubin CK-MB (CK-2) C-Reactive Protein NT-Pro-B Natriuret Pep Total Protein Albumin Arterial Blood Glucose Urine WBC (Auto) Urine Creatinine 02/11/20 02/11/20 02/12/20 13:43 14:11 00:15 WBC RBC Hgb Hct MCHC RDW MCV MCH Lymph % (Auto) [place] % (Auto) [place] # Eos # Lymph # (Auto) [place] # (Auto) Eos # (Auto) Seg Neutrophils % Seg Neuts % (Manual) Baso # (Auto) Lymphocytes % (Manual) Monocytes % (Manual) Eosinophils % (Manual) Basophils % (Manual) Seg Neutrophils # Seg Neutrophils # Man Lymphocytes # (Manual) Monocytes # (Manual) Eosinophils # (Manual) Nucleated RBC % Basophils # (Manual) PT INR APTT Heparin Anti-Xa Level ABG pH 7.502 H POC ABG pO2 77.7 L ABG pO2 ABG HCO3 ABG O2 Saturation ABG Base Excess POC ABG pCO2 ABG Hemoglobin 11.1 L ABG Oxyhemoglobin ABG Chloride 108.0 H ABG Glucose 151 H Oxyhemoglobin Sodium Potassium Chloride Carbon Dioxide BUN Creatinine Glucose POC Glucose 130 H 125 H Lactic Acid Calcium Phosphorus Magnesium AST ALT Lactate Dehydrogenase Total Bilirubin Direct Bilirubin CK-MB (CK-2) C-Reactive Protein NT-Pro-B Natriuret Pep Total Protein Albumin Arterial Blood Glucose 151 H Urine WBC (Auto) Urine Creatinine 02/12/20 02/12/20 02/12/20 04:56 04:56 17:42 WBC RBC Hgb 9.9 L Hct 31.8 L MCHC 31 L RDW 19.4 H MCV 79 L MCH 25 L Lymph % (Auto) [place] % (Auto) 10.3 H [place] # Eos # Lymph # (Auto) [place] # (Auto) 1.0 H Eos # (Auto) Seg Neutrophils % Seg Neuts % (Manual) Baso # (Auto) Lymphocytes % (Manual) Monocytes % (Manual) Eosinophils % (Manual) Basophils % (Manual) Seg Neutrophils # Seg Neutrophils # Man Lymphocytes # (Manual) Monocytes # (Manual) Eosinophils # (Manual) Nucleated RBC % Basophils # (Manual) PT INR APTT Heparin Anti-Xa Level ABG pH POC ABG pO2 ABG pO2 ABG HCO3 ABG O2 Saturation ABG Base Excess POC ABG pCO2 ABG Hemoglobin ABG Oxyhemoglobin ABG Chloride ABG Glucose Oxyhemoglobin Sodium 149 H Potassium Chloride 108.6 H Carbon Dioxide BUN 28 H Creatinine 0.7 L Glucose 108 H POC Glucose 113 H Lactic Acid Calcium Phosphorus Magnesium AST ALT Lactate Dehydrogenase Total Bilirubin Direct Bilirubin CK-MB (CK-2) C-Reactive Protein NT-Pro-B Natriuret Pep Total Protein Albumin Arterial Blood Glucose Urine WBC (Auto) Urine Creatinine 02/13/20 02/13/20 02/13/20 00:39 05:36 12:25 WBC RBC Hgb Hct MCHC RDW MCV MCH Lymph % (Auto) [place] % (Auto) [place] # Eos # Lymph # (Auto) [place] # (Auto) Eos # (Auto) Seg Neutrophils % Seg Neuts % (Manual) Baso # (Auto) Lymphocytes % (Manual) Monocytes % (Manual) Eosinophils % (Manual) Basophils % (Manual) Seg Neutrophils # Seg Neutrophils # Man Lymphocytes # (Manual) Monocytes # (Manual) Eosinophils # (Manual) Nucleated RBC % Basophils # (Manual) PT INR APTT Heparin Anti-Xa Level ABG pH POC ABG pO2 ABG pO2 ABG HCO3 ABG O2 Saturation ABG Base Excess POC ABG pCO2 ABG Hemoglobin ABG Oxyhemoglobin ABG Chloride ABG Glucose Oxyhemoglobin Sodium Potassium Chloride Carbon Dioxide BUN Creatinine Glucose POC Glucose 129 H 126 H 129 H Lactic Acid Calcium Phosphorus Magnesium AST ALT Lactate Dehydrogenase Total Bilirubin Direct Bilirubin CK-MB (CK-2) C-Reactive Protein NT-Pro-B Natriuret Pep Total Protein Albumin Arterial Blood Glucose Urine WBC (Auto) Urine Creatinine 02/13/20 02/14/20 02/14/20 17:59 00:15 05:41 WBC RBC Hgb Hct MCHC RDW MCV MCH Lymph % (Auto) [place] % (Auto) [place] # Eos # Lymph # (Auto) [place] # (Auto) Eos # (Auto) Seg Neutrophils % Seg Neuts % (Manual) Baso # (Auto) Lymphocytes % (Manual) Monocytes % (Manual) Eosinophils % (Manual) Basophils % (Manual) Seg Neutrophils # Seg Neutrophils # Man Lymphocytes # (Manual) Monocytes # (Manual) Eosinophils # (Manual) Nucleated RBC % Basophils # (Manual) PT INR APTT Heparin Anti-Xa Level ABG pH POC ABG pO2 ABG pO2 ABG HCO3 ABG O2 Saturation ABG Base Excess POC ABG pCO2 ABG Hemoglobin ABG Oxyhemoglobin ABG Chloride ABG Glucose Oxyhemoglobin Sodium Potassium Chloride Carbon Dioxide BUN Creatinine Glucose POC Glucose 153 H 130 H 130 H Lactic Acid Calcium Phosphorus Magnesium AST ALT Lactate Dehydrogenase Total Bilirubin Direct Bilirubin CK-MB (CK-2) C-Reactive Protein NT-Pro-B Natriuret Pep Total Protein Albumin Arterial Blood Glucose Urine WBC (Auto) Urine Creatinine 02/14/20 02/15/20 02/15/20 11:32 00:12 05:27 WBC RBC Hgb Hct MCHC RDW MCV MCH Lymph % (Auto) [place] % (Auto) [place] # Eos # Lymph # (Auto) [place] # (Auto) Eos # (Auto) Seg Neutrophils % Seg Neuts % (Manual) Baso # (Auto) Lymphocytes % (Manual) Monocytes % (Manual) Eosinophils % (Manual) Basophils % (Manual) Seg Neutrophils # Seg Neutrophils # Man Lymphocytes # (Manual) Monocytes # (Manual) Eosinophils # (Manual) Nucleated RBC % Basophils # (Manual) PT INR APTT Heparin Anti-Xa Level ABG pH POC ABG pO2 ABG pO2 ABG HCO3 ABG O2 Saturation ABG Base Excess POC ABG pCO2 ABG Hemoglobin ABG Oxyhemoglobin ABG Chloride ABG Glucose Oxyhemoglobin Sodium Potassium Chloride Carbon Dioxide BUN Creatinine Glucose POC Glucose 157 H 124 H 111 H Lactic Acid Calcium Phosphorus Magnesium AST ALT Lactate Dehydrogenase Total Bilirubin Direct Bilirubin CK-MB (CK-2) C-Reactive Protein NT-Pro-B Natriuret Pep Total Protein Albumin Arterial Blood Glucose Urine WBC (Auto) Urine Creatinine 02/15/20 02/15/20 02/15/20 06:59 06:59 11:14 WBC RBC Hgb 10.4 L Hct 33.7 L MCHC 31 L RDW 19.4 H MCV 80 L MCH 24 L Lymph % (Auto) [place] % (Auto) [place] # Eos # Lymph # (Auto) [place] # (Auto) Eos # (Auto) Seg Neutrophils % Seg Neuts % (Manual) Baso # (Auto) Lymphocytes % (Manual) Monocytes % (Manual) Eosinophils % (Manual) Basophils % (Manual) 2.0 H Seg Neutrophils # Seg Neutrophils # Man Lymphocytes # (Manual) Monocytes # (Manual) Eosinophils # (Manual) Nucleated RBC % 1.0 H Basophils # (Manual) 0.2 H PT INR APTT Heparin Anti-Xa Level ABG pH POC ABG pO2 ABG pO2 ABG HCO3 ABG O2 Saturation ABG Base Excess POC ABG pCO2 ABG Hemoglobin ABG Oxyhemoglobin ABG Chloride ABG Glucose Oxyhemoglobin Sodium 149 H Potassium Chloride 108.4 H Carbon Dioxide 31 H BUN 40 H Creatinine 0.7 L Glucose 150 H POC Glucose 128 H Lactic Acid Calcium Phosphorus Magnesium AST ALT Lactate Dehydrogenase Total Bilirubin Direct Bilirubin CK-MB (CK-2) C-Reactive Protein NT-Pro-B Natriuret Pep Total Protein Albumin Arterial Blood Glucose Urine WBC (Auto) Urine Creatinine 02/15/20 02/15/20 02/16/20 17:46 23:50 05:03 WBC RBC Hgb Hct MCHC RDW MCV MCH Lymph % (Auto) [place] % (Auto) [place] # Eos # Lymph # (Auto) [place] # (Auto) Eos # (Auto) Seg Neutrophils % Seg Neuts % (Manual) Baso # (Auto) Lymphocytes % (Manual) Monocytes % (Manual) Eosinophils % (Manual) Basophils % (Manual) Seg Neutrophils # Seg Neutrophils # Man Lymphocytes # (Manual) Monocytes # (Manual) Eosinophils # (Manual) Nucleated RBC % Basophils # (Manual) PT INR APTT Heparin Anti-Xa Level ABG pH POC ABG pO2 ABG pO2 ABG HCO3 ABG O2 Saturation ABG Base Excess POC ABG pCO2 ABG Hemoglobin ABG Oxyhemoglobin ABG Chloride ABG Glucose Oxyhemoglobin Sodium Potassium Chloride Carbon Dioxide BUN Creatinine Glucose POC Glucose 154 H 135 H 148 H Lactic Acid Calcium Phosphorus Magnesium AST ALT Lactate Dehydrogenase Total Bilirubin Direct Bilirubin CK-MB (CK-2) C-Reactive Protein NT-Pro-B Natriuret Pep Total Protein Albumin Arterial Blood Glucose Urine WBC (Auto) Urine Creatinine 02/16/20 02/16/20 02/16/20 07:53 11:28 17:52 WBC RBC Hgb Hct MCHC RDW MCV MCH Lymph % (Auto) [place] % (Auto) [place] # Eos # Lymph # (Auto) [place] # (Auto) Eos # (Auto) Seg Neutrophils % Seg Neuts % (Manual) Baso # (Auto) Lymphocytes % (Manual) Monocytes % (Manual) Eosinophils % (Manual) Basophils % (Manual) Seg Neutrophils # Seg Neutrophils # Man Lymphocytes # (Manual) Monocytes # (Manual) Eosinophils # (Manual) Nucleated RBC % Basophils # (Manual) PT INR APTT Heparin Anti-Xa Level ABG pH POC ABG pO2 ABG pO2 ABG HCO3 ABG O2 Saturation ABG Base Excess POC ABG pCO2 ABG Hemoglobin ABG Oxyhemoglobin ABG Chloride ABG Glucose Oxyhemoglobin Sodium Potassium Chloride 107.9 H Carbon Dioxide BUN 38 H Creatinine 0.6 L Glucose 151 H POC Glucose 123 H 152 H Lactic Acid Calcium Phosphorus Magnesium AST ALT Lactate Dehydrogenase Total Bilirubin Direct Bilirubin CK-MB (CK-2) C-Reactive Protein NT-Pro-B Natriuret Pep Total Protein Albumin Arterial Blood Glucose Urine WBC (Auto) Urine Creatinine 02/16/20 02/17/20 02/17/20 23:49 06:24 11:36 WBC RBC Hgb Hct MCHC RDW MCV MCH Lymph % (Auto) [place] % (Auto) [place] # Eos # Lymph # (Auto) [place] # (Auto) Eos # (Auto) Seg Neutrophils % Seg Neuts % (Manual) Baso # (Auto) Lymphocytes % (Manual) Monocytes % (Manual) Eosinophils % (Manual) Basophils % (Manual) Seg Neutrophils # Seg Neutrophils # Man Lymphocytes # (Manual) Monocytes # (Manual) Eosinophils # (Manual) Nucleated RBC % Basophils # (Manual) PT INR APTT Heparin Anti-Xa Level ABG pH POC ABG pO2 ABG pO2 ABG HCO3 ABG O2 Saturation ABG Base Excess POC ABG pCO2 ABG Hemoglobin ABG Oxyhemoglobin ABG Chloride ABG Glucose Oxyhemoglobin Sodium Potassium Chloride Carbon Dioxide BUN Creatinine Glucose POC Glucose 156 H 193 H 162 H Lactic Acid Calcium Phosphorus Magnesium AST ALT Lactate Dehydrogenase Total Bilirubin Direct Bilirubin CK-MB (CK-2) C-Reactive Protein NT-Pro-B Natriuret Pep Total Protein Albumin Arterial Blood Glucose Urine WBC (Auto) Urine Creatinine 02/17/20 02/17/20 02/18/20 17:55 23:28 05:11 WBC RBC Hgb Hct MCHC RDW MCV MCH Lymph % (Auto) [place] % (Auto) [place] # Eos # Lymph # (Auto) [place] # (Auto) Eos # (Auto) Seg Neutrophils % Seg Neuts % (Manual) Baso # (Auto) Lymphocytes % (Manual) Monocytes % (Manual) Eosinophils % (Manual) Basophils % (Manual) Seg Neutrophils # Seg Neutrophils # Man Lymphocytes # (Manual) Monocytes # (Manual) Eosinophils # (Manual) Nucleated RBC % Basophils # (Manual) PT INR APTT Heparin Anti-Xa Level ABG pH POC ABG pO2 ABG pO2 ABG HCO3 ABG O2 Saturation ABG Base Excess POC ABG pCO2 ABG Hemoglobin ABG Oxyhemoglobin ABG Chloride ABG Glucose Oxyhemoglobin Sodium Potassium Chloride Carbon Dioxide BUN Creatinine Glucose POC Glucose 165 H 146 H 122 H Lactic Acid Calcium Phosphorus Magnesium AST ALT Lactate Dehydrogenase Total Bilirubin Direct Bilirubin CK-MB (CK-2) C-Reactive Protein NT-Pro-B Natriuret Pep Total Protein Albumin Arterial Blood Glucose Urine WBC (Auto) Urine Creatinine 02/18/20 02/18/20 02/19/20 12:24 17:29 00:01 WBC RBC Hgb Hct MCHC RDW MCV MCH Lymph % (Auto) [place] % (Auto) [place] # Eos # Lymph # (Auto) [place] # (Auto) Eos # (Auto) Seg Neutrophils % Seg Neuts % (Manual) Baso # (Auto) Lymphocytes % (Manual) Monocytes % (Manual) Eosinophils % (Manual) Basophils % (Manual) Seg Neutrophils # Seg Neutrophils # Man Lymphocytes # (Manual) Monocytes # (Manual) Eosinophils # (Manual) Nucleated RBC % Basophils # (Manual) PT INR APTT Heparin Anti-Xa Level ABG pH POC ABG pO2 ABG pO2 ABG HCO3 ABG O2 Saturation ABG Base Excess POC ABG pCO2 ABG Hemoglobin ABG Oxyhemoglobin ABG Chloride ABG Glucose Oxyhemoglobin Sodium Potassium Chloride Carbon Dioxide BUN Creatinine Glucose POC Glucose 162 H 136 H 145 H Lactic Acid Calcium Phosphorus Magnesium AST ALT Lactate Dehydrogenase Total Bilirubin Direct Bilirubin CK-MB (CK-2) C-Reactive Protein NT-Pro-B Natriuret Pep Total Protein Albumin Arterial Blood Glucose Urine WBC (Auto) Urine Creatinine 02/19/20 02/19/20 02/19/20 05:53 11:44 17:32 WBC RBC Hgb Hct MCHC RDW MCV MCH Lymph % (Auto) [place] % (Auto) [place] # Eos # Lymph # (Auto) [place] # (Auto) Eos # (Auto) Seg Neutrophils % Seg Neuts % (Manual) Baso # (Auto) Lymphocytes % (Manual) Monocytes % (Manual) Eosinophils % (Manual) Basophils % (Manual) Seg Neutrophils # Seg Neutrophils # Man Lymphocytes # (Manual) Monocytes # (Manual) Eosinophils # (Manual) Nucleated RBC % Basophils # (Manual) PT INR APTT Heparin Anti-Xa Level ABG pH POC ABG pO2 ABG pO2 ABG HCO3 ABG O2 Saturation ABG Base Excess POC ABG pCO2 ABG Hemoglobin ABG Oxyhemoglobin ABG Chloride ABG Glucose Oxyhemoglobin Sodium Potassium Chloride Carbon Dioxide BUN Creatinine Glucose POC Glucose 116 H 120 H 154 H Lactic Acid Calcium Phosphorus Magnesium AST ALT Lactate Dehydrogenase Total Bilirubin Direct Bilirubin CK-MB (CK-2) C-Reactive Protein NT-Pro-B Natriuret Pep Total Protein Albumin Arterial Blood Glucose Urine WBC (Auto) Urine Creatinine 02/19/20 02/20/20 02/20/20 23:43 00:24 00:24 WBC RBC Hgb 9.4 L Hct 30.0 L MCHC 31 L RDW 20.4 H MCV 79 L MCH 25 L Lymph % (Auto) [place] % (Auto) 8.5 H [place] # Eos # Lymph # (Auto) [place] # (Auto) Eos # (Auto) Seg Neutrophils % Seg Neuts % (Manual) Baso # (Auto) Lymphocytes % (Manual) Monocytes % (Manual) Eosinophils % (Manual) Basophils % (Manual) Seg Neutrophils # Seg Neutrophils # Man Lymphocytes # (Manual) Monocytes # (Manual) Eosinophils # (Manual) Nucleated RBC % Basophils # (Manual) PT INR APTT Heparin Anti-Xa Level ABG pH POC ABG pO2 ABG pO2 ABG HCO3 ABG O2 Saturation ABG Base Excess POC ABG pCO2 ABG Hemoglobin ABG Oxyhemoglobin ABG Chloride ABG Glucose Oxyhemoglobin Sodium 147 H Potassium 3.4 L Chloride Carbon Dioxide 31 H BUN 34 H Creatinine 0.5 L Glucose 135 H POC Glucose 122 H Lactic Acid Calcium Phosphorus Magnesium AST ALT Lactate Dehydrogenase Total Bilirubin Direct Bilirubin CK-MB (CK-2) C-Reactive Protein NT-Pro-B Natriuret Pep Total Protein Albumin Arterial Blood Glucose Urine WBC (Auto) Urine Creatinine 02/20/20 02/20/20 02/20/20 06:07 06:45 12:03 WBC RBC Hgb Hct MCHC RDW MCV MCH Lymph % (Auto) [place] % (Auto) [place] # Eos # Lymph # (Auto) [place] # (Auto) Eos # (Auto) Seg Neutrophils % Seg Neuts % (Manual) Baso # (Auto) Lymphocytes % (Manual) Monocytes % (Manual) Eosinophils % (Manual) Basophils % (Manual) Seg Neutrophils # Seg Neutrophils # Man Lymphocytes # (Manual) Monocytes # (Manual) Eosinophils # (Manual) Nucleated RBC % Basophils # (Manual) PT INR APTT Heparin Anti-Xa Level ABG pH 7.461 H POC ABG pO2 ABG pO2 ABG HCO3 33.3 H ABG O2 Saturation ABG Base Excess 8.4 H POC ABG pCO2 ABG Hemoglobin 10.0 L ABG Oxyhemoglobin ABG Chloride ABG Glucose Oxyhemoglobin 94.1 L Sodium Potassium Chloride Carbon Dioxide BUN Creatinine Glucose POC Glucose 109 H 128 H Lactic Acid Calcium Phosphorus Magnesium AST ALT Lactate Dehydrogenase Total Bilirubin Direct Bilirubin CK-MB (CK-2) C-Reactive Protein NT-Pro-B Natriuret Pep Total Protein Albumin Arterial Blood Glucose Urine WBC (Auto) Urine Creatinine 02/20/20 02/20/20 02/21/20 18:02 23:55 05:42 WBC RBC Hgb Hct MCHC RDW MCV MCH Lymph % (Auto) [place] % (Auto) [place] # Eos # Lymph # (Auto) [place] # (Auto) Eos # (Auto) Seg Neutrophils % Seg Neuts % (Manual) Baso # (Auto) Lymphocytes % (Manual) Monocytes % (Manual) Eosinophils % (Manual) Basophils % (Manual) Seg Neutrophils # Seg Neutrophils # Man Lymphocytes # (Manual) Monocytes # (Manual) Eosinophils # (Manual) Nucleated RBC % Basophils # (Manual) PT INR APTT Heparin Anti-Xa Level ABG pH POC ABG pO2 ABG pO2 ABG HCO3 ABG O2 Saturation ABG Base Excess POC ABG pCO2 ABG Hemoglobin ABG Oxyhemoglobin ABG Chloride ABG Glucose Oxyhemoglobin Sodium Potassium Chloride Carbon Dioxide BUN Creatinine Glucose POC Glucose 118 H 125 H 127 H Lactic Acid Calcium Phosphorus Magnesium AST ALT Lactate Dehydrogenase Total Bilirubin Direct Bilirubin CK-MB (CK-2) C-Reactive Protein NT-Pro-B Natriuret Pep Total Protein Albumin Arterial Blood Glucose Urine WBC (Auto) Urine Creatinine 02/21/20 02/21/20 02/21/20 12:10 17:35 23:40 WBC RBC Hgb Hct MCHC RDW MCV MCH Lymph % (Auto) [place] % (Auto) [place] # Eos # Lymph # (Auto) [place] # (Auto) Eos # (Auto) Seg Neutrophils % Seg Neuts % (Manual) Baso # (Auto) Lymphocytes % (Manual) Monocytes % (Manual) Eosinophils % (Manual) Basophils % (Manual) Seg Neutrophils # Seg Neutrophils # Man Lymphocytes # (Manual) Monocytes # (Manual) Eosinophils # (Manual) Nucleated RBC % Basophils # (Manual) PT INR APTT Heparin Anti-Xa Level ABG pH POC ABG pO2 ABG pO2 ABG HCO3 ABG O2 Saturation ABG Base Excess POC ABG pCO2 ABG Hemoglobin ABG Oxyhemoglobin ABG Chloride ABG Glucose Oxyhemoglobin Sodium Potassium Chloride Carbon Dioxide BUN Creatinine Glucose POC Glucose 128 H 113 H 125 H Lactic Acid Calcium Phosphorus Magnesium AST ALT Lactate Dehydrogenase Total Bilirubin Direct Bilirubin CK-MB (CK-2) C-Reactive Protein NT-Pro-B Natriuret Pep Total Protein Albumin Arterial Blood Glucose Urine WBC (Auto) Urine Creatinine 02/22/20 02/22/20 02/22/20 05:57 08:06 08:06 WBC RBC Hgb 10.8 L Hct 35.2 L MCHC 31 L RDW 21.8 H MCV 80 L MCH 25 L Lymph % (Auto) [place] % (Auto) [place] # Eos # Lymph # (Auto) [place] # (Auto) Eos # (Auto) Seg Neutrophils % 71.5 H Seg Neuts % (Manual) Baso # (Auto) Lymphocytes % (Manual) Monocytes % (Manual) Eosinophils % (Manual) Basophils % (Manual) Seg Neutrophils # Seg Neutrophils # Man Lymphocytes # (Manual) Monocytes # (Manual) Eosinophils # (Manual) Nucleated RBC % Basophils # (Manual) PT INR APTT Heparin Anti-Xa Level ABG pH POC ABG pO2 ABG pO2 ABG HCO3 ABG O2 Saturation ABG Base Excess POC ABG pCO2 ABG Hemoglobin ABG Oxyhemoglobin ABG Chloride ABG Glucose Oxyhemoglobin Sodium 146 H Potassium Chloride Carbon Dioxide 34 H BUN 21 H Creatinine 0.4 L Glucose 149 H POC Glucose 138 H Lactic Acid Calcium Phosphorus Magnesium AST ALT Lactate Dehydrogenase Total Bilirubin Direct Bilirubin CK-MB (CK-2) C-Reactive Protein NT-Pro-B Natriuret Pep Total Protein Albumin Arterial Blood Glucose Urine WBC (Auto) Urine Creatinine 02/22/20 02/22/20 02/22/20 11:47 17:11 23:25 WBC RBC Hgb Hct MCHC RDW MCV MCH Lymph % (Auto) [place] % (Auto) [place] # Eos # Lymph # (Auto) [place] # (Auto) Eos # (Auto) Seg Neutrophils % Seg Neuts % (Manual) Baso # (Auto) Lymphocytes % (Manual) Monocytes % (Manual) Eosinophils % (Manual) Basophils % (Manual) Seg Neutrophils # Seg Neutrophils # Man Lymphocytes # (Manual) Monocytes # (Manual) Eosinophils # (Manual) Nucleated RBC % Basophils # (Manual) PT INR APTT Heparin Anti-Xa Level ABG pH POC ABG pO2 ABG pO2 ABG HCO3 ABG O2 Saturation ABG Base Excess POC ABG pCO2 ABG Hemoglobin ABG Oxyhemoglobin ABG Chloride ABG Glucose Oxyhemoglobin Sodium Potassium Chloride Carbon Dioxide BUN Creatinine Glucose POC Glucose 149 H 144 H 142 H Lactic Acid Calcium Phosphorus Magnesium AST ALT Lactate Dehydrogenase Total Bilirubin Direct Bilirubin CK-MB (CK-2) C-Reactive Protein NT-Pro-B Natriuret Pep Total Protein Albumin Arterial Blood Glucose Urine WBC (Auto) Urine Creatinine 02/23/20 02/23/20 02/23/20 05:22 11:37 18:14 WBC RBC Hgb Hct MCHC RDW MCV MCH Lymph % (Auto) [place] % (Auto) [place] # Eos # Lymph # (Auto) [place] # (Auto) Eos # (Auto) Seg Neutrophils % Seg Neuts % (Manual) Baso # (Auto) Lymphocytes % (Manual) Monocytes % (Manual) Eosinophils % (Manual) Basophils % (Manual) Seg Neutrophils # Seg Neutrophils # Man Lymphocytes # (Manual) Monocytes # (Manual) Eosinophils # (Manual) Nucleated RBC % Basophils # (Manual) PT INR APTT Heparin Anti-Xa Level ABG pH POC ABG pO2 ABG pO2 ABG HCO3 ABG O2 Saturation ABG Base Excess POC ABG pCO2 ABG Hemoglobin ABG Oxyhemoglobin ABG Chloride ABG Glucose Oxyhemoglobin Sodium Potassium Chloride Carbon Dioxide BUN Creatinine Glucose POC Glucose 144 H 113 H 127 H Lactic Acid Calcium Phosphorus Magnesium AST ALT Lactate Dehydrogenase Total Bilirubin Direct Bilirubin CK-MB (CK-2) C-Reactive Protein NT-Pro-B Natriuret Pep Total Protein Albumin Arterial Blood Glucose Urine WBC (Auto) Urine Creatinine 02/23/20 02/24/20 02/24/20 23:45 05:50 11:24 WBC RBC Hgb Hct MCHC RDW MCV MCH Lymph % (Auto) [place] % (Auto) [place] # Eos # Lymph # (Auto) [place] # (Auto) Eos # (Auto) Seg Neutrophils % Seg Neuts % (Manual) Baso # (Auto) Lymphocytes % (Manual) Monocytes % (Manual) Eosinophils % (Manual) Basophils % (Manual) Seg Neutrophils # Seg Neutrophils # Man Lymphocytes # (Manual) Monocytes # (Manual) Eosinophils # (Manual) Nucleated RBC % Basophils # (Manual) PT INR APTT Heparin Anti-Xa Level ABG pH POC ABG pO2 ABG pO2 ABG HCO3 ABG O2 Saturation ABG Base Excess POC ABG pCO2 ABG Hemoglobin ABG Oxyhemoglobin ABG Chloride ABG Glucose Oxyhemoglobin Sodium Potassium Chloride Carbon Dioxide BUN Creatinine Glucose POC Glucose 123 H 117 H 126 H Lactic Acid Calcium Phosphorus Magnesium AST ALT Lactate Dehydrogenase Total Bilirubin Direct Bilirubin CK-MB (CK-2) C-Reactive Protein NT-Pro-B Natriuret Pep Total Protein Albumin Arterial Blood Glucose Urine WBC (Auto) Urine Creatinine 02/24/20 02/24/20 02/25/20 18:35 23:27 05:20 WBC RBC Hgb Hct MCHC RDW MCV MCH Lymph % (Auto) [place] % (Auto) [place] # Eos # Lymph # (Auto) [place] # (Auto) Eos # (Auto) Seg Neutrophils % Seg Neuts % (Manual) Baso # (Auto) Lymphocytes % (Manual) Monocytes % (Manual) Eosinophils % (Manual) Basophils % (Manual) Seg Neutrophils # Seg Neutrophils # Man Lymphocytes # (Manual) Monocytes # (Manual) Eosinophils # (Manual) Nucleated RBC % Basophils # (Manual) PT INR APTT Heparin Anti-Xa Level ABG pH POC ABG pO2 ABG pO2 ABG HCO3 ABG O2 Saturation ABG Base Excess POC ABG pCO2 ABG Hemoglobin ABG Oxyhemoglobin ABG Chloride ABG Glucose Oxyhemoglobin Sodium Potassium Chloride Carbon Dioxide BUN Creatinine Glucose POC Glucose 121 H 127 H 133 H Lactic Acid Calcium Phosphorus Magnesium AST ALT Lactate Dehydrogenase Total Bilirubin Direct Bilirubin CK-MB (CK-2) C-Reactive Protein NT-Pro-B Natriuret Pep Total Protein Albumin Arterial Blood Glucose Urine WBC (Auto) Urine Creatinine 02/25/20 02/25/20 02/25/20 12:08 17:26 23:33 WBC RBC Hgb Hct MCHC RDW MCV MCH Lymph % (Auto) [place] % (Auto) [place] # Eos # Lymph # (Auto) [place] # (Auto) Eos # (Auto) Seg Neutrophils % Seg Neuts % (Manual) Baso # (Auto) Lymphocytes % (Manual) Monocytes % (Manual) Eosinophils % (Manual) Basophils % (Manual) Seg Neutrophils # Seg Neutrophils # Man Lymphocytes # (Manual) Monocytes # (Manual) Eosinophils # (Manual) Nucleated RBC % Basophils # (Manual) PT INR APTT Heparin Anti-Xa Level ABG pH POC ABG pO2 ABG pO2 ABG HCO3 ABG O2 Saturation ABG Base Excess POC ABG pCO2 ABG Hemoglobin ABG Oxyhemoglobin ABG Chloride ABG Glucose Oxyhemoglobin Sodium Potassium Chloride Carbon Dioxide BUN Creatinine Glucose POC Glucose 109 H 120 H 120 H Lactic Acid Calcium Phosphorus Magnesium AST ALT Lactate Dehydrogenase Total Bilirubin Direct Bilirubin CK-MB (CK-2) C-Reactive Protein NT-Pro-B Natriuret Pep Total Protein Albumin Arterial Blood Glucose Urine WBC (Auto) Urine Creatinine 02/26/20 02/26/20 02/27/20 05:33 07:50 12:13 WBC RBC Hgb Hct MCHC RDW MCV MCH Lymph % (Auto) [place] % (Auto) [place] # Eos # Lymph # (Auto) [place] # (Auto) Eos # (Auto) Seg Neutrophils % Seg Neuts % (Manual) Baso # (Auto) Lymphocytes % (Manual) Monocytes % (Manual) Eosinophils % (Manual) Basophils % (Manual) Seg Neutrophils # Seg Neutrophils # Man Lymphocytes # (Manual) Monocytes # (Manual) Eosinophils # (Manual) Nucleated RBC % Basophils # (Manual) PT INR APTT Heparin Anti-Xa Level ABG pH POC ABG pO2 ABG pO2 ABG HCO3 ABG O2 Saturation ABG Base Excess POC ABG pCO2 ABG Hemoglobin ABG Oxyhemoglobin ABG Chloride ABG Glucose Oxyhemoglobin Sodium Potassium Chloride Carbon Dioxide BUN Creatinine Glucose POC Glucose 106 H 130 H Lactic Acid Calcium Phosphorus Magnesium AST ALT Lactate Dehydrogenase Total Bilirubin Direct Bilirubin CK-MB (CK-2) C-Reactive Protein NT-Pro-B Natriuret Pep Total Protein Albumin Arterial Blood Glucose Urine WBC (Auto) > 182.0 H Urine Creatinine 02/27/20 02/27/20 02/28/20 18:20 23:33 05:01 WBC RBC Hgb Hct MCHC RDW MCV MCH Lymph % (Auto) [place] % (Auto) [place] # Eos # Lymph # (Auto) [place] # (Auto) Eos # (Auto) Seg Neutrophils % Seg Neuts % (Manual) Baso # (Auto) Lymphocytes % (Manual) Monocytes % (Manual) Eosinophils % (Manual) Basophils % (Manual) Seg Neutrophils # Seg Neutrophils # Man Lymphocytes # (Manual) Monocytes # (Manual) Eosinophils # (Manual) Nucleated RBC % Basophils # (Manual) PT INR APTT Heparin Anti-Xa Level ABG pH POC ABG pO2 ABG pO2 ABG HCO3 ABG O2 Saturation ABG Base Excess POC ABG pCO2 ABG Hemoglobin ABG Oxyhemoglobin ABG Chloride ABG Glucose Oxyhemoglobin Sodium Potassium Chloride Carbon Dioxide BUN Creatinine Glucose POC Glucose 109 H 124 H 134 H Lactic Acid Calcium Phosphorus Magnesium AST ALT Lactate Dehydrogenase Total Bilirubin Direct Bilirubin CK-MB (CK-2) C-Reactive Protein NT-Pro-B Natriuret Pep Total Protein Albumin Arterial Blood Glucose Urine WBC (Auto) Urine Creatinine 02/28/20 02/28/20 02/28/20 11:54 18:16 23:03 WBC RBC Hgb Hct MCHC RDW MCV MCH Lymph % (Auto) [place] % (Auto) [place] # Eos # Lymph # (Auto) [place] # (Auto) Eos # (Auto) Seg Neutrophils % Seg Neuts % (Manual) Baso # (Auto) Lymphocytes % (Manual) Monocytes % (Manual) Eosinophils % (Manual) Basophils % (Manual) Seg Neutrophils # Seg Neutrophils # Man Lymphocytes # (Manual) Monocytes # (Manual) Eosinophils # (Manual) Nucleated RBC % Basophils # (Manual) PT INR APTT Heparin Anti-Xa Level ABG pH POC ABG pO2 ABG pO2 ABG HCO3 ABG O2 Saturation ABG Base Excess POC ABG pCO2 ABG Hemoglobin ABG Oxyhemoglobin ABG Chloride ABG Glucose Oxyhemoglobin Sodium Potassium Chloride Carbon Dioxide BUN Creatinine Glucose POC Glucose 133 H 134 H 146 H Lactic Acid Calcium Phosphorus Magnesium AST ALT Lactate Dehydrogenase Total Bilirubin Direct Bilirubin CK-MB (CK-2) C-Reactive Protein NT-Pro-B Natriuret Pep Total Protein Albumin Arterial Blood Glucose Urine WBC (Auto) Urine Creatinine 02/29/20 02/29/20 02/29/20 05:24 11:34 17:12 WBC RBC Hgb Hct MCHC RDW MCV MCH Lymph % (Auto) [place] % (Auto) [place] # Eos # Lymph # (Auto) [place] # (Auto) Eos # (Auto) Seg Neutrophils % Seg Neuts % (Manual) Baso # (Auto) Lymphocytes % (Manual) Monocytes % (Manual) Eosinophils % (Manual) Basophils % (Manual) Seg Neutrophils # Seg Neutrophils # Man Lymphocytes # (Manual) Monocytes # (Manual) Eosinophils # (Manual) Nucleated RBC % Basophils # (Manual) PT INR APTT Heparin Anti-Xa Level ABG pH POC ABG pO2 ABG pO2 ABG HCO3 ABG O2 Saturation ABG Base Excess POC ABG pCO2 ABG Hemoglobin ABG Oxyhemoglobin ABG Chloride ABG Glucose Oxyhemoglobin Sodium Potassium Chloride Carbon Dioxide BUN Creatinine Glucose POC Glucose 139 H 141 H 157 H Lactic Acid Calcium Phosphorus Magnesium AST ALT Lactate Dehydrogenase Total Bilirubin Direct Bilirubin CK-MB (CK-2) C-Reactive Protein NT-Pro-B Natriuret Pep Total Protein Albumin Arterial Blood Glucose Urine WBC (Auto) Urine Creatinine 02/29/20 03/01/20 03/01/20 23:35 06:00 11:53 WBC RBC Hgb Hct MCHC RDW MCV MCH Lymph % (Auto) [place] % (Auto) [place] # Eos # Lymph # (Auto) [place] # (Auto) Eos # (Auto) Seg Neutrophils % Seg Neuts % (Manual) Baso # (Auto) Lymphocytes % (Manual) Monocytes % (Manual) Eosinophils % (Manual) Basophils % (Manual) Seg Neutrophils # Seg Neutrophils # Man Lymphocytes # (Manual) Monocytes # (Manual) Eosinophils # (Manual) Nucleated RBC % Basophils # (Manual) PT INR APTT Heparin Anti-Xa Level ABG pH POC ABG pO2 ABG pO2 ABG HCO3 ABG O2 Saturation ABG Base Excess POC ABG pCO2 ABG Hemoglobin ABG Oxyhemoglobin ABG Chloride ABG Glucose Oxyhemoglobin Sodium Potassium Chloride Carbon Dioxide BUN Creatinine Glucose POC Glucose 120 H 132 H 136 H Lactic Acid Calcium Phosphorus Magnesium AST ALT Lactate Dehydrogenase Total Bilirubin Direct Bilirubin CK-MB (CK-2) C-Reactive Protein NT-Pro-B Natriuret Pep Total Protein Albumin Arterial Blood Glucose Urine WBC (Auto) Urine Creatinine 03/01/20 03/01/20 03/02/20 17:36 23:16 05:12 WBC RBC Hgb Hct MCHC RDW MCV MCH Lymph % (Auto) [place] % (Auto) [place] # Eos # Lymph # (Auto) [place] # (Auto) Eos # (Auto) Seg Neutrophils % Seg Neuts % (Manual) Baso # (Auto) Lymphocytes % (Manual) Monocytes % (Manual) Eosinophils % (Manual) Basophils % (Manual) Seg Neutrophils # Seg Neutrophils # Man Lymphocytes # (Manual) Monocytes # (Manual) Eosinophils # (Manual) Nucleated RBC % Basophils # (Manual) PT INR APTT Heparin Anti-Xa Level ABG pH POC ABG pO2 ABG pO2 ABG HCO3 ABG O2 Saturation ABG Base Excess POC ABG pCO2 ABG Hemoglobin ABG Oxyhemoglobin ABG Chloride ABG Glucose Oxyhemoglobin Sodium Potassium Chloride Carbon Dioxide BUN Creatinine Glucose POC Glucose 171 H 164 H 176 H Lactic Acid Calcium Phosphorus Magnesium AST ALT Lactate Dehydrogenase Total Bilirubin Direct Bilirubin CK-MB (CK-2) C-Reactive Protein NT-Pro-B Natriuret Pep Total Protein Albumin Arterial Blood Glucose Urine WBC (Auto) Urine Creatinine 03/02/20 03/02/20 03/03/20 11:42 18:01 00:06 WBC RBC Hgb Hct MCHC RDW MCV MCH Lymph % (Auto) [place] % (Auto) [place] # Eos # Lymph # (Auto) [place] # (Auto) Eos # (Auto) Seg Neutrophils % Seg Neuts % (Manual) Baso # (Auto) Lymphocytes % (Manual) Monocytes % (Manual) Eosinophils % (Manual) Basophils % (Manual) Seg Neutrophils # Seg Neutrophils # Man Lymphocytes # (Manual) Monocytes # (Manual) Eosinophils # (Manual) Nucleated RBC % Basophils # (Manual) PT INR APTT Heparin Anti-Xa Level ABG pH POC ABG pO2 ABG pO2 ABG HCO3 ABG O2 Saturation ABG Base Excess POC ABG pCO2 ABG Hemoglobin ABG Oxyhemoglobin ABG Chloride ABG Glucose Oxyhemoglobin Sodium Potassium Chloride Carbon Dioxide BUN Creatinine Glucose POC Glucose 150 H 156 H 156 H Lactic Acid Calcium Phosphorus Magnesium AST ALT Lactate Dehydrogenase Total Bilirubin Direct Bilirubin CK-MB (CK-2) C-Reactive Protein NT-Pro-B Natriuret Pep Total Protein Albumin Arterial Blood Glucose Urine WBC (Auto) Urine Creatinine 03/03/20 03/03/20 03/03/20 03:31 11:20 16:55 WBC RBC Hgb Hct MCHC RDW MCV MCH Lymph % (Auto) [place] % (Auto) [place] # Eos # Lymph # (Auto) [place] # (Auto) Eos # (Auto) Seg Neutrophils % Seg Neuts % (Manual) Baso # (Auto) Lymphocytes % (Manual) Monocytes % (Manual) Eosinophils % (Manual) Basophils % (Manual) Seg Neutrophils # Seg Neutrophils # Man Lymphocytes # (Manual) Monocytes # (Manual) Eosinophils # (Manual) Nucleated RBC % Basophils # (Manual) PT INR APTT Heparin Anti-Xa Level ABG pH POC ABG pO2 ABG pO2 ABG HCO3 ABG O2 Saturation ABG Base Excess POC ABG pCO2 ABG Hemoglobin ABG Oxyhemoglobin ABG Chloride ABG Glucose Oxyhemoglobin Sodium Potassium Chloride Carbon Dioxide BUN Creatinine Glucose POC Glucose 164 H 125 H 211 H Lactic Acid Calcium Phosphorus Magnesium AST ALT Lactate Dehydrogenase Total Bilirubin Direct Bilirubin CK-MB (CK-2) C-Reactive Protein NT-Pro-B Natriuret Pep Total Protein Albumin Arterial Blood Glucose Urine WBC (Auto) Urine Creatinine 03/04/20 03/04/20 03/04/20 00:29 05:20 12:09 WBC RBC Hgb Hct MCHC RDW MCV MCH Lymph % (Auto) [place] % (Auto) [place] # Eos # Lymph # (Auto) [place] # (Auto) Eos # (Auto) Seg Neutrophils % Seg Neuts % (Manual) Baso # (Auto) Lymphocytes % (Manual) Monocytes % (Manual) Eosinophils % (Manual) Basophils % (Manual) Seg Neutrophils # Seg Neutrophils # Man Lymphocytes # (Manual) Monocytes # (Manual) Eosinophils # (Manual) Nucleated RBC % Basophils # (Manual) PT INR APTT Heparin Anti-Xa Level ABG pH POC ABG pO2 ABG pO2 ABG HCO3 ABG O2 Saturation ABG Base Excess POC ABG pCO2 ABG Hemoglobin ABG Oxyhemoglobin ABG Chloride ABG Glucose Oxyhemoglobin Sodium Potassium Chloride Carbon Dioxide BUN Creatinine Glucose POC Glucose 169 H 154 H 197 H Lactic Acid Calcium Phosphorus Magnesium AST ALT Lactate Dehydrogenase Total Bilirubin Direct Bilirubin CK-MB (CK-2) C-Reactive Protein NT-Pro-B Natriuret Pep Total Protein Albumin Arterial Blood Glucose Urine WBC (Auto) Urine Creatinine 03/04/20 03/04/20 03/04/20 18:00 20:38 20:38 WBC RBC Hgb 10.1 L Hct 32.7 L MCHC 31 L RDW 24.7 H MCV 79 L MCH 24 L Lymph % (Auto) [place] % (Auto) 8.9 H [place] # Eos # Lymph # (Auto) [place] # (Auto) Eos # (Auto) Seg Neutrophils % Seg Neuts % (Manual) Baso # (Auto) Lymphocytes % (Manual) Monocytes % (Manual) Eosinophils % (Manual) Basophils % (Manual) Seg Neutrophils # Seg Neutrophils # Man Lymphocytes # (Manual) Monocytes # (Manual) Eosinophils # (Manual) Nucleated RBC % Basophils # (Manual) PT INR APTT Heparin Anti-Xa Level ABG pH POC ABG pO2 ABG pO2 ABG HCO3 ABG O2 Saturation ABG Base Excess POC ABG pCO2 ABG Hemoglobin ABG Oxyhemoglobin ABG Chloride ABG Glucose Oxyhemoglobin Sodium 136 L Potassium Chloride Carbon Dioxide BUN 25 H Creatinine 0.5 L Glucose 148 H POC Glucose 146 H Lactic Acid Calcium Phosphorus Magnesium AST ALT Lactate Dehydrogenase Total Bilirubin Direct Bilirubin CK-MB (CK-2) C-Reactive Protein NT-Pro-B Natriuret Pep Total Protein Albumin Arterial Blood Glucose Urine WBC (Auto) Urine Creatinine 03/04/20 03/05/20 03/05/20 23:17 05:44 11:32 WBC RBC Hgb Hct MCHC RDW MCV MCH Lymph % (Auto) [place] % (Auto) [place] # Eos # Lymph # (Auto) [place] # (Auto) Eos # (Auto) Seg Neutrophils % Seg Neuts % (Manual) Baso # (Auto) Lymphocytes % (Manual) Monocytes % (Manual) Eosinophils % (Manual) Basophils % (Manual) Seg Neutrophils # Seg Neutrophils # Man Lymphocytes # (Manual) Monocytes # (Manual) Eosinophils # (Manual) Nucleated RBC % Basophils # (Manual) PT INR APTT Heparin Anti-Xa Level ABG pH POC ABG pO2 ABG pO2 ABG HCO3 ABG O2 Saturation ABG Base Excess POC ABG pCO2 ABG Hemoglobin ABG Oxyhemoglobin ABG Chloride ABG Glucose Oxyhemoglobin Sodium Potassium Chloride Carbon Dioxide BUN Creatinine Glucose POC Glucose 139 H 155 H 124 H Lactic Acid Calcium Phosphorus Magnesium AST ALT Lactate Dehydrogenase Total Bilirubin Direct Bilirubin CK-MB (CK-2) C-Reactive Protein NT-Pro-B Natriuret Pep Total Protein Albumin Arterial Blood Glucose Urine WBC (Auto) Urine Creatinine 03/05/20 03/05/20 03/06/20 17:45 23:18 12:16 WBC RBC Hgb Hct MCHC RDW MCV MCH Lymph % (Auto) [place] % (Auto) [place] # Eos # Lymph # (Auto) [place] # (Auto) Eos # (Auto) Seg Neutrophils % Seg Neuts % (Manual) Baso # (Auto) Lymphocytes % (Manual) Monocytes % (Manual) Eosinophils % (Manual) Basophils % (Manual) Seg Neutrophils # Seg Neutrophils # Man Lymphocytes # (Manual) Monocytes # (Manual) Eosinophils # (Manual) Nucleated RBC % Basophils # (Manual) PT INR APTT Heparin Anti-Xa Level ABG pH POC ABG pO2 ABG pO2 ABG HCO3 ABG O2 Saturation ABG Base Excess POC ABG pCO2 ABG Hemoglobin ABG Oxyhemoglobin ABG Chloride ABG Glucose Oxyhemoglobin Sodium Potassium Chloride Carbon Dioxide BUN Creatinine Glucose POC Glucose 171 H 114 H 155 H Lactic Acid Calcium Phosphorus Magnesium AST ALT Lactate Dehydrogenase Total Bilirubin Direct Bilirubin CK-MB (CK-2) C-Reactive Protein NT-Pro-B Natriuret Pep Total Protein Albumin Arterial Blood Glucose Urine WBC (Auto) Urine Creatinine 03/06/20 03/06/2020 17:27 23:48 06:02 WBC RBC Hgb Hct MCHC RDW MCV MCH Lymph % (Auto) [place] % (Auto) [place] # Eos # Lymph # (Auto) [place] # (Auto) Eos # (Auto) Seg Neutrophils % Seg Neuts % (Manual) Baso # (Auto) Lymphocytes % (Manual) Monocytes % (Manual) Eosinophils % (Manual) Basophils % (Manual) Seg Neutrophils # Seg Neutrophils # Man Lymphocytes # (Manual) Monocytes # (Manual) Eosinophils # (Manual) Nucleated RBC % Basophils # (Manual) PT INR APTT Heparin Anti-Xa Level ABG pH POC ABG pO2 ABG pO2 ABG HCO3 ABG O2 Saturation ABG Base Excess POC ABG pCO2 ABG Hemoglobin ABG Oxyhemoglobin ABG Chloride ABG Glucose Oxyhemoglobin Sodium Potassium Chloride Carbon Dioxide BUN Creatinine Glucose POC Glucose 116 H 142 H 161 H Lactic Acid Calcium Phosphorus Magnesium AST ALT Lactate Dehydrogenase Total Bilirubin Direct Bilirubin CK-MB (CK-2) C-Reactive Protein NT-Pro-B Natriuret Pep Total Protein Albumin Arterial Blood Glucose Urine WBC (Auto) Urine Creatinine 03/07/20 03/08/20 03/08/20 11:36 05:18 11:51 WBC RBC Hgb Hct MCHC RDW MCV MCH Lymph % (Auto) [place] % (Auto) [place] # Eos # Lymph # (Auto) [place] # (Auto) Eos # (Auto) Seg Neutrophils % Seg Neuts % (Manual) Baso # (Auto) Lymphocytes % (Manual) Monocytes % (Manual) Eosinophils % (Manual) Basophils % (Manual) Seg Neutrophils # Seg Neutrophils # Man Lymphocytes # (Manual) Monocytes # (Manual) Eosinophils # (Manual) Nucleated RBC % Basophils # (Manual) PT INR APTT Heparin Anti-Xa Level ABG pH POC ABG pO2 ABG pO2 ABG HCO3 ABG O2 Saturation ABG Base Excess POC ABG pCO2 ABG Hemoglobin ABG Oxyhemoglobin ABG Chloride ABG Glucose Oxyhemoglobin Sodium Potassium Chloride Carbon Dioxide BUN Creatinine Glucose POC Glucose 127 H 142 H 135 H Lactic Acid Calcium Phosphorus Magnesium AST ALT Lactate Dehydrogenase Total Bilirubin Direct Bilirubin CK-MB (CK-2) C-Reactive Protein NT-Pro-B Natriuret Pep Total Protein Albumin Arterial Blood Glucose Urine WBC (Auto) Urine Creatinine 03/08/20 03/08/20 03/09/20 18:14 23:45 05:36 WBC RBC Hgb Hct MCHC RDW MCV MCH Lymph % (Auto) [place] % (Auto) [place] # Eos # Lymph # (Auto) [place] # (Auto) Eos # (Auto) Seg Neutrophils % Seg Neuts % (Manual) Baso # (Auto) Lymphocytes % (Manual) Monocytes % (Manual) Eosinophils % (Manual) Basophils % (Manual) Seg Neutrophils # Seg Neutrophils # Man Lymphocytes # (Manual) Monocytes # (Manual) Eosinophils # (Manual) Nucleated RBC % Basophils # (Manual) PT INR APTT Heparin Anti-Xa Level ABG pH POC ABG pO2 ABG pO2 ABG HCO3 ABG O2 Saturation ABG Base Excess POC ABG pCO2 ABG Hemoglobin ABG Oxyhemoglobin ABG Chloride ABG Glucose Oxyhemoglobin Sodium Potassium Chloride Carbon Dioxide BUN Creatinine Glucose POC Glucose 125 H 143 H 158 H Lactic Acid Calcium Phosphorus Magnesium AST ALT Lactate Dehydrogenase Total Bilirubin Direct Bilirubin CK-MB (CK-2) C-Reactive Protein NT-Pro-B Natriuret Pep Total Protein Albumin Arterial Blood Glucose Urine WBC (Auto) Urine Creatinine 03/09/20 03/09/20 03/09/20 06:32 06:32 11:34 WBC RBC Hgb 9.8 L Hct 31.6 L MCHC 31 L RDW 23.1 H MCV 80 L MCH 25 L Lymph % (Auto) 35.1 H [place] % (Auto) 11.4 H [place] # Eos # Lymph # (Auto) [place] # (Auto) Eos # (Auto) Seg Neutrophils % Seg Neuts % (Manual) Baso # (Auto) Lymphocytes % (Manual) Monocytes % (Manual) Eosinophils % (Manual) Basophils % (Manual) Seg Neutrophils # Seg Neutrophils # Man Lymphocytes # (Manual) Monocytes # (Manual) Eosinophils # (Manual) Nucleated RBC % Basophils # (Manual) PT INR APTT Heparin Anti-Xa Level ABG pH POC ABG pO2 ABG pO2 ABG HCO3 ABG O2 Saturation ABG Base Excess POC ABG pCO2 ABG Hemoglobin ABG Oxyhemoglobin ABG Chloride ABG Glucose Oxyhemoglobin Sodium 136 L Potassium Chloride Carbon Dioxide BUN 25 H Creatinine 0.6 L Glucose 170 H POC Glucose 140 H Lactic Acid Calcium Phosphorus Magnesium AST ALT Lactate Dehydrogenase Total Bilirubin Direct Bilirubin CK-MB (CK-2) C-Reactive Protein NT-Pro-B Natriuret Pep Total Protein Albumin Arterial Blood Glucose Urine WBC (Auto) Urine Creatinine 03/09/20 03/09/20 03/10/20 18:10 23:11 05:41 WBC RBC Hgb Hct MCHC RDW MCV MCH Lymph % (Auto) [place] % (Auto) [place] # Eos # Lymph # (Auto) [place] # (Auto) Eos # (Auto) Seg Neutrophils % Seg Neuts % (Manual) Baso # (Auto) Lymphocytes % (Manual) Monocytes % (Manual) Eosinophils % (Manual) Basophils % (Manual) Seg Neutrophils # Seg Neutrophils # Man Lymphocytes # (Manual) Monocytes # (Manual) Eosinophils # (Manual) Nucleated RBC % Basophils # (Manual) PT INR APTT Heparin Anti-Xa Level ABG pH POC ABG pO2 ABG pO2 ABG HCO3 ABG O2 Saturation ABG Base Excess POC ABG pCO2 ABG Hemoglobin ABG Oxyhemoglobin ABG Chloride ABG Glucose Oxyhemoglobin Sodium Potassium Chloride Carbon Dioxide BUN Creatinine Glucose POC Glucose 153 H 111 H 138 H Lactic Acid Calcium Phosphorus Magnesium AST ALT Lactate Dehydrogenase Total Bilirubin Direct Bilirubin CK-MB (CK-2) C-Reactive Protein NT-Pro-B Natriuret Pep Total Protein Albumin Arterial Blood Glucose Urine WBC (Auto) Urine Creatinine 03/10/20 03/10/20 03/10/20 11:15 17:58 23:36 WBC RBC Hgb Hct MCHC RDW MCV MCH Lymph % (Auto) [place] % (Auto) [place] # Eos # Lymph # (Auto) [place] # (Auto) Eos # (Auto) Seg Neutrophils % Seg Neuts % (Manual) Baso # (Auto) Lymphocytes % (Manual) Monocytes % (Manual) Eosinophils % (Manual) Basophils % (Manual) Seg Neutrophils # Seg Neutrophils # Man Lymphocytes # (Manual) Monocytes # (Manual) Eosinophils # (Manual) Nucleated RBC % Basophils # (Manual) PT INR APTT Heparin Anti-Xa Level ABG pH POC ABG pO2 ABG pO2 ABG HCO3 ABG O2 Saturation ABG Base Excess POC ABG pCO2 ABG Hemoglobin ABG Oxyhemoglobin ABG Chloride ABG Glucose Oxyhemoglobin Sodium Potassium Chloride Carbon Dioxide BUN Creatinine Glucose POC Glucose 141 H 149 H 148 H Lactic Acid Calcium Phosphorus Magnesium AST ALT Lactate Dehydrogenase Total Bilirubin Direct Bilirubin CK-MB (CK-2) C-Reactive Protein NT-Pro-B Natriuret Pep Total Protein Albumin Arterial Blood Glucose Urine WBC (Auto) Urine Creatinine 03/11/20 05:55 WBC RBC Hgb Hct MCHC RDW MCV MCH Lymph % (Auto) [place] % (Auto) [place] # Eos # Lymph # (Auto) [place] # (Auto) Eos # (Auto) Seg Neutrophils % Seg Neuts % (Manual) Baso # (Auto) Lymphocytes % (Manual) Monocytes % (Manual) Eosinophils % (Manual) Basophils % (Manual) Seg Neutrophils # Seg Neutrophils # Man Lymphocytes # (Manual) Monocytes # (Manual) Eosinophils # (Manual) Nucleated RBC % Basophils # (Manual) PT INR APTT Heparin Anti-Xa Level ABG pH POC ABG pO2 ABG pO2 ABG HCO3 ABG O2 Saturation ABG Base Excess POC ABG pCO2 ABG Hemoglobin ABG Oxyhemoglobin ABG Chloride ABG Glucose Oxyhemoglobin Sodium Potassium Chloride Carbon Dioxide BUN Creatinine Glucose POC Glucose 181 H Lactic Acid Calcium Phosphorus Magnesium AST ALT Lactate Dehydrogenase Total Bilirubin Direct Bilirubin CK-MB (CK-2) C-Reactive Protein NT-Pro-B Natriuret Pep Total Protein Albumin Arterial Blood Glucose Urine WBC (Auto) Urine Creatinine Allied health notes reviewed: RT
[2020-03-11] MEDS: DIGOXIN 0.125 MG TAB PO SCH (18:24)
[2020-03-11] MEDS: TAMSULOSIN 0.4 MG CAP PO SCH (22:53)
[2020-03-11] MEDS: POLYETHYLENE GLYCOL 3350 17 GM POWDER PO SCH (22:55)
[2020-03-12] MEDS: INSULIN REGULAR, HUMAN 100 UNIT/ML 3ML VIAL SUB-Q SCH ×5 (05:11→18:16)
--- NOTE | 2020-03-12 07:57 | Progress Note ---
Assessment and Plan Assessment and plan: -Acute hypoxemic respiratory failure; Patient has tracheostomy on vent, very difficult to wean Continue nebulizers, , trach care Wean off ventilator as tolerated Pulmonary critical following --Acute exacerbation of COPD; Patient is currently on ventilatory support Continue nebulizers --Ischemic cardiomyopathy Cardiology is following, status post cardiac catheterization on 01/22/2020; Coronary artery disease status post PCI and stent to the LAD Continue current cardiac medications --H/o CAD [[facility] 12/2018 in-stent restenosis] Patient is stable on current cardiac medications --Paroxysmal atrial fibrillation; Now rate controlled, Stable on amiodarone and Eliquis --Acute on chronic combined systolic and diastolic congestive heart failure Ischemic cardiomyopathy left ventricular ejection fraction 40 to 45% --Left lower lobe PE; 12/10/2019 CTA Continue Eliquis, supportive care --Acute right lower extremity DVT; on Eliquis --Bilateral multifocal pneumonia/community-acquired Completed antibiotics, improved --Severe sepsis/bilateral pneumonia: Completed antibiotics COVID-19 test; 11/24/2019; negative 11/26/2019; negative 12/29/2019: Negative --Hypertensive emergency; present on admission Reasonable blood pressures, continue current antihypertensives As needed medications --History of alcohol abuse/alcohol withdrawal; Off CIWA protocol, --Oropharyngeal dysphagia; status post PEG placement Continue PEG feeds per protocol --History of partial small bowel obstruction; resolved --Obesity; BMI 34.7 Patient needs weight reduction when medically stable --Severe protein calorie malnutrition/hypoalbuminemia Nutrition supplements, dietitian following, PEG feeds --DVT prophylaxis;Eliquis --Full CODE STATUS DC planning per case management/LTAC versus home when medically stable We will closely monitor the patient and adjust the management as needed Plan of care reviewed with the patient's nurse. The high probability of a clinically significant, sudden or life threatening deterioration of the [Respiratory, cardiovascular & neurological] system(s) required my full and direct attention, intervention and personal management. The aggregate critical care time was [32] minutes without overlap. Time includes spent on [x] Data Review and interpretation [x] Patient assessment and monitoring of vital signs [x] Documentation [x] Medication orders and management Patient is unable to wean, Multiple social issues Unable to place LTAC We will closely monitor the patient and adjust the management as needed Wean as tolerated and extubate 02/22. Awake and alert on vent. Vitals stable. 02/23. Awake and alert on vent. Requests for ice. Vitals stable 02/24. Trach to vent. Continue rate control with metoprolol and digoxin. Amiodarone discontinued due to elevated liver transaminases. Eliquis for anticoagulation of acute PE/DVT. Transferred to [facility] 02/25. Seen in IMCU. Requests for ice. RN to provide a cube of ice. Vitals stable. 02/26. No change in medical condition. Slightly tachy this AM. Will monitor. 02/27. Cardiology started him on a beta hebert. Still on vent 02/28. Discharge planning as per cardroom manager. Still on vent. Tachycardia noted. 03/01/2020; patient is tachycardic, still on the vent. Discharge management as per cardroom manager. 03/02/2020; patient is on a vent and trach. Discharge is per cardroom manager. 03/03/2012; patient is on vent and trach patient is alert and oriented. 03/04/2020; patient is on vent and trach, patient is alert. 03/05/2020; patient is on vent and trach, patient is alert. 03/06/2020 tracheostomy on vent , patient is alert, possible LTAC placement 03/08/2020 remains on ventilatory support; wean off the vent, pending LTAC placement 03/09/2020; clinically no change, tracheostomy on ventilatory support, unable to wean, awaiting LTAC placement, social issues 03/10/2020; clinically no change; patient alert and awake; 03/11/2020; patient is more alert and awake asking for some water, remains on ventilatory support, awaiting LTAC placement 03/12/2020; clinically no change, tracheostomy on ventilatory support, unable to wean, awaiting LTAC placement Brief history; Patient is a 64-year-old male with known history of hypertension, COPD, history of coronary artery disease, CHF with ejection fraction of 20 to 25% 2019 was admitted through emergency room with worsening shortness of breath Patient was found to be hypoxic and in respiratory distress. Patient was placed on CPAP in route to the hospital. Patient remained hypoxic on CPAP BiPAP ,subsequently was intubated, vent dependent. Unable to wean subsequently had tracheostomy and PEG placement, patient also has acute PE DVT and paroxysmal atrial fibrillation on chronic anticoagulation. Patient is vent dependent, social issues, awaiting LTAC placement History Interval history: I have seen and examined the patient at the bedside in ICU this morning Patient's chart current medications reviewed Patient with tracheostomy vent dependent, unable to wean Alert and awake responding appropriately Vital signs noted Hospitalist Physical - Constitutional Vitals: Temp Pulse Resp BP Pulse Ox 97.4 F L 114 H 18 102/69 100 03/12/20 03:36 03/12/20 06:01 03/12/20 06:01 03/12/20 06:01 03/12/20 06:01 General appearance: Present: no acute distress, well-nourished, other (Tracheost sarah on vent) - EENT Eyes: Present: PERRL, EOM intact ENT: other (Tracheostomy) - Neck Neck: Present: supple, other (Tracheostomy) - Respiratory Respiratory effort: normal Respiratory: bilateral: diminished, rhonchi, negative: rales, wheezing - Cardiovascular Rhythm: regular Heart Sounds: Present: S1 & S2 - Extremities Extremities: no ischemia, No edema - Abdominal General gastrointestinal: soft, non-tender, non-distended, normal bowel sounds, other (PEG tube in place) - Integumentary Integumentary: Present: clear, warm - Psychiatric Psychiatric: cooperative, other (On ventilatory support) - Neurologic Neurologic: other (Alert and awake, ventilatory support) HEART Score - HEART Score Troponin: Troponin T < 0.010 ng/mL (0.00-0.029) 01/19/20 01:35 Results - Labs CBC & Chem 7: 03/09/20 06:32 03/09/20 06:32 Labs: Laboratory Last Values WBC 6.1 K/mm3 (4.5-11.0) 03/09/20 06:32 RBC 3.98 M/mm3 (3.65-5.03) 03/09/20 06:32 Hgb 9.8 gm/dl (11.8-15.2) L 03/09/20 06:32 Hct 31.6 % (35.5-45.6) L 03/09/20 06:32 MCV 80 fl (84-94) L 03/09/20 06:32 MCH 25 pg (28-32) L 03/09/20 06:32 MCHC 31 % (32-34) L 03/09/20 06:32 RDW 23.1 % (13.2-15.2) H 03/09/20 06:32 Plt Count 200 K/mm3 (140-440) 03/09/20 06:32 Lymph % (Auto) 35.1 % (13.4-35.0) H 03/09/20 06:32 [place] % (Auto) 11.4 % (0.0-7.3) H 03/09/20 06:32 Eos % (Auto) 2.9 % (0.0-4.3) 03/09/20 06:32 Baso % (Auto) 0.6 % (0.0-1.8) 03/09/20 06:32 Lymph # (Auto) 2.1 K/mm3 (1.2-5.4) 03/09/20 06:32 [place] # (Auto) 0.7 K/mm3 (0.0-0.8) 03/09/20 06:32 Eos # (Auto) 0.2 K/mm3 (0.0-0.4) 03/09/20 06:32 Baso # (Auto) 0.0 K/mm3 (0.0-0.1) 03/09/20 06:32 Add Manual Diff Complete 02/15/20 06:59 Total Counted 100 02/15/20 06:59 Seg Neutrophils % 50.0 % (40.0-70.0) 03/09/20 06:32 Seg Neuts % (Manual) 58.0 % (40.0-70.0) 02/15/20 06:59 Band Neutrophils % 0 % 02/15/20 06:59 Lymphocytes % (Manual) 34.0 % (13.4-35.0) 02/15/20 06:59 Reactive Lymphs % (Man) 1.0 % 02/15/20 06:59 Monocytes % (Manual) 4.0 % (0.0-7.3) 02/15/20 06:59 Eosinophils % (Manual) 0 % (0.0-4.3) 02/15/20 06:59 Basophils % (Manual) 2.0 % (0.0-1.8) H 02/15/20 06:59 Metamyelocytes % 1.0 % 02/15/20 06:59 Myelocytes % 0 % 02/15/20 06:59 Promyelocytes % 0 % 02/15/20 06:59 Blast Cells % 0 % 02/15/20 06:59 Nucleated RBC % 1.0 % (0.0-0.9) H 02/15/20 06:59 Seg Neutrophils # 3.0 K/mm3 (1.8-7.7) 03/09/20 06:32 Seg Neutrophils # Man 5.9 K/mm3 (1.8-7.7) 02/15/20 06:59 Band Neutrophils # 0.0 K/mm3 02/15/20 06:59 Lymphocytes # (Manual) 3.5 K/mm3 (1.2-5.4) 02/15/20 06:59 Abs React Lymphs (Man) 0.1 K/mm3 02/15/20 06:59 Monocytes # (Manual) 0.4 K/mm3 (0.0-0.8) 02/15/20 06:59 Eosinophils # (Manual) 0.0 K/mm3 (0.0-0.4) 02/15/20 06:59 Basophils # (Manual) 0.2 K/mm3 (0.0-0.1) H 02/15/20 06:59 Metamyelocytes # 0.1 K/mm3 02/15/20 06:59 Myelocytes # 0.0 K/mm3 02/15/20 06:59 Promyelocytes # 0.0 K/mm3 02/15/20 06:59 Blast Cells # 0.0 K/mm3 02/15/20 06:59 WBC Morphology Not Reportable 02/15/20 06:59 Hypersegmented Neuts Not Reportable 02/15/20 06:59 Hyposegmented Neuts Not Reportable 02/15/20 06:59 Hypogranular Neuts Not Reportable 02/15/20 06:59 Smudge Cells Not Reportable 02/15/20 06:59 Toxic Granulation Not Reportable 02/15/20 06:59 Toxic Vacuolation Not Reportable 02/15/20 06:59 Dohle Bodies Not Reportable 02/15/20 06:59 Pelger-Huet Anomaly Not Reportable 02/15/20 06:59 Hector Rods Not Reportable 02/15/20 06:59 Platelet Estimate Consistent w auto 02/15/20 06:59 Clumped Platelets Not Reportable 02/15/20 06:59 Plt Clumps, EDTA Not Reportable 02/15/20 06:59 Large Platelets Not Reportable 02/15/20 06:59 Giant Platelets Not Reportable 02/15/20 06:59 Platelet Satelliting Not Reportable 02/15/20 06:59 Plt Morphology Comment Giant platelets 02/15/20 06:59 RBC Morphology Not Reportable 02/15/20 06:59 Dimorphic RBCs Not Reportable 02/15/20 06:59 Polychromasia Not Reportable 02/15/20 06:59 Hypochromasia 1+ 02/15/20 06:59 Poikilocytosis Few 02/15/20 06:59 Anisocytosis 1+ 02/15/20 06:59 Microcytosis Not Reportable 02/15/20 06:59 Macrocytosis Not Reportable 02/15/20 06:59 Spherocytes Not Reportable 02/15/20 06:59 Pappenheimer Bodies Not Reportable 02/15/20 06:59 Sickle Cells Not Reportable 02/15/20 06:59 Target Cells 1+ 02/15/20 06:59 Tear Drop Cells Few 02/15/20 06:59 Ovalocytes Not Reportable 02/15/20 06:59 Helmet Cells Not Reportable 02/15/20 06:59 [place] Bodies Not Reportable 02/15/20 06:59 [place] Rings Not Reportable 02/15/20 06:59 [place] Cells Not Reportable 02/15/20 06:59 Bite Cells Not Reportable 02/15/20 06:59 Crenated Cell Not Reportable 02/15/20 06:59 Elliptocytes Few 02/15/20 06:59 Acanthocytes (Spur) Not Reportable 02/15/20 06:59 Rouleaux Not Reportable 02/15/20 06:59 Hemoglobin C Crystals Not Reportable 02/15/20 06:59 Schistocytes Not Reportable 02/15/20 06:59 Malaria parasites Not Reportable 02/15/20 06:59 Clifford Bodies Not Reportable 02/15/20 06:59 Hem Pathologist Commnt No 02/15/20 06:59 PT 27.0 Sec. (12.2-14.9) H 02/07/20 15:03 INR 2.46 (0.87-1.13) H 02/07/20 15:03 APTT 31.5 Sec. (24.2-36.6) 01/22/20 09:58 Heparin Anti-Xa Level 1.34 U.I./ml (0.3-0.7) H 01/22/20 04:45 ABG pH 7.454 (7.320-7.450) H 03/12/20 04:45 POC ABG pCO2 45.6 mmHg (32.0-48.0) 03/12/20 04:45 ABG pCO2 47.8 mm Hg 02/20/20 06:45 POC ABG pO2 69.2 mmHg (83-108) L 03/12/20 04:45 ABG pO2 88.7 mm Hg (80.0-90.0) 02/20/20 06:45 POC ABG HCO3 31.3 03/12/20 04:45 ABG HCO3 33.3 mmol/L (20.0-26.0) H 02/20/20 06:45 ABG O2 Saturation 97.2 % (95.0-99.0) 02/20/20 06:45 ABG O2 Content 13.3 (0.0-44) 02/20/20 06:45 POC ABG Base Excess 6.5 03/12/20 04:45 ABG Base Excess 8.4 mmol/L (-2.0-3.0) H 02/20/20 06:45 ABG Hemoglobin 11.2 (12.0-17.5) L 03/12/20 04:45 ABG Oxyhemoglobin 84 (94-98) L 12/22/19 03:22 ABG Carboxyhemoglobin 2.9 % (0.0-5.0) 02/20/20 06:45 ABG Methemoglobin 0.4 % (0.0-1.5) 02/20/20 06:45 ABG Sodium 134.7 mmol/L (136.0-145.0) L 03/12/20 04:45 ABG Potassium 3.9 mmol/L (3.40-4.50) 03/12/20 04:45 ABG Chloride 98.0 mmol/L (98-107) 03/12/20 04:45 ABG Glucose 151 mg/dL (65-95) H 03/12/20 04:45 Oxyhemoglobin 94.1 % (95.0-99.0) L 02/20/20 06:45 Carboxyhemoglobin 0.7 (0.5-1.5) 12/22/19 03:22 FiO2 30 03/12/20 04:45 Sodium 136 mmol/L (137-145) L 03/09/20 06:32 Potassium 4.2 mmol/L (3.6-5.0) 03/09/20 06:32 Chloride 98.9 mmol/L (98-107) 03/09/20 06:32 Carbon Dioxide 29 mmol/L (22-30) 03/09/20 06:32 Anion Gap 12 mmol/L 03/09/20 06:32 BUN 25 mg/dL (9-20) H 03/09/20 06:32 Creatinine 0.6 mg/dL (0.8-1.3) L 03/09/20 06:32 Estimated GFR > 60 ml/min 03/09/20 06:32 BUN/Creatinine Ratio 42 % 03/09/20 06:32 Glucose 170 mg/dL (75-100) H 03/09/20 06:32 POC Glucose 137 mg/dL (70-105) H 03/12/20 05:36 Lactic Acid 1.60 mmol/L (0.7-2.0) 02/03/20 12:49 Calcium 8.9 mg/dL (8.4-10.2) 03/09/20 06:32 Ferritin 84.4 ng/mL (30.0-300.0) 11/24/19 04:53 Phosphorus 4.10 mg/dL (2.5-4.5) 01/31/20 19:24 Magnesium 2.40 mg/dL (1.7-2.3) H 02/10/20 07:40 Total Bilirubin 1.30 mg/dL (0.1-1.2) H 02/08/20 19:00 Direct Bilirubin 0.9 mg/dL (0-0.2) H 02/08/20 19:00 Indirect Bilirubin 0.4 mg/dL 02/08/20 19:00 Total Creatine Kinase 141 units/L (55-170) 11/24/19 02:53 CK-MB (CK-2) 4.3 ng/mL (0.0-4.0) H 11/24/19 02:53 AST 309 units/L (5-40) H 02/08/20 19:00 ALT 650 units/L (7-56) H 02/08/20 19:00 CK-MB (CK-2) Rel Index 3.0 (0-4) 11/24/19 02:53 Alkaline Phosphatase 109 units/L (35-129) 02/08/20 19:00 C-Reactive Protein 8.50 mg/dL (0.00-1.30) H 12/01/19 12:16 Ammonia 35.0 umol/L (25-60) 02/03/20 12:49 Lactate Dehydrogenase 228 units/L (91-180) H 12/19/19 04:45 Troponin T < 0.010 ng/mL (0.00-0.029) 01/19/20 01:35 NT-Pro-B Natriuret Pep 3866 pg/mL (0-900) H 01/01/20 10:40 Total Protein 6.2 g/dL (6.3-8.2) L 02/08/20 19:00 Albumin 2.7 g/dL (3.9-5) L 02/08/20 19:00 Albumin/Globulin Ratio 0.8 % 02/08/20 19:00 Procalcitonin 0.44 ng/mL (<0.15) 02/03/20 12:49 Arterial Blood Glucose 151 mg/dL (65-95) H 03/12/20 04:45 Arterial Blood Ionized Calcium 4.8 mg/dL (4.6-5.3) 03/12/20 04:45 Urine Color Cecy (Yellow) 02/26/20 07:50 Urine Turbidity Clear (Clear) 02/26/20 07:50 Urine pH 5.0 (5.0-7.0) 02/26/20 07:50 Ur Specific [place] 1.025 (1.003-1.030) 02/26/20 07:50 Urine Protein 30 mg/dl mg/dL (Negative) 02/26/20 07:50 Urine Glucose (UA) Neg mg/dL (Negative) 02/26/20 07:50 Urine Ketones Neg mg/dL (Negative) 02/26/20 07:50 Urine Blood Sm (Negative) 02/26/20 07:50 Urine Nitrite Neg (Negative) 02/26/20 07:50 Urine Bilirubin Neg (Negative) 02/26/20 07:50 Urine Urobilinogen 4.0 mg/dL (<2.0) 02/26/20 07:50 Ur Leukocyte Esterase Lg (Negative) 02/26/20 07:50 Urine WBC (Auto) > 182.0 /HPF (0.0-6.0) H 02/26/20 07:50 Urine RBC (Auto) 84.0 /HPF (0.0-6.0) 02/26/20 07:50 U Epithel Cells (Auto) 2.0 /HPF (0-13.0) 12/31/19 18:04 Urine Bacteria (Auto) 4+ /HPF (Negative) 02/26/20 07:50 Urine WBC Clumps 2+ /HPF 02/26/20 07:50 Urine Mucus 1+ /HPF 02/26/20 07:50 Urine Creatinine 57.4 mg/dL (0.1-20.0) H 01/31/20 Unknown Urine Sodium 59 mmol/L 01/31/20 Unknown Vancomycin Trough 14.2 ug/mL (5.0-20.0) 12/13/19 15:01 Coronavirus (PCR) Negative (Negative) 12/29/19 10:07 Hepatitis A IgM Ab Non-reactive (NonReactive) 02/05/20 06:37 Hep Bs Antigen Non-reactive (Negative) 02/05/20 06:37 Hep B Core IgM Ab Non-reactive (NonReactive) 02/05/20 06:37 Hepatitis C Antibody Non-reactive (NonReactive) 02/05/20 06:37 Blood Type O POSITIVE 01/21/20 13:00 Antibody Screen Negative 01/21/20 13:00 - Diagnostic Impressions Diagnostic Impressions: Echocardiogram 11/29/19 07:37 Transthoracic Echocardiogram Indication: CHF BP: 116/72 HR: 33 Conclusions *The study is technically limited due to poor acoustic windows. *Global left ventricular systolic function is normal. *The estimated ejection fraction is 50-55%. *Mild concentric left ventricular hypertrophy is observed. *There is trace of mitral regurgitation. *There is mild tricuspid regurgitation. Findings Procedure Info: The study quality is poor. The study is technically limited due to poor acoustic windows. The study is technically limited due to patient body habitus. Left Ventricle: The left ventricular chamber size is normal. Mild concentric left ventricular hypertrophy is observed. Global left ventricular systolic function is normal. The estimated ejection fraction is 50-55%. Left Atrium: The left atrial chamber size is normal. Right Ventricle: The right ventricular cavity size is normal. Right Atrium: The right atrial cavity size is normal. Aortic Valve: The aortic valve leaflets are moderately thickened. There is trace of aortic regurgitation. There is no evidence of aortic stenosis. Mitral Valve: The mitral valve leaflets are mildly thickened. There is trace of mitral regurgitation. There is no evidence of mitral stenosis. Tricuspid Valve: There is mild tricuspid regurgitation. No pulmonary hypertension is noted. Pulmonic Valve: There is trace pulmonic regurgitation. Pericardium: There is no pericardial effusion. Aorta: There is no dilatation of the aortic root. Venous: The inferior vena cava appears normal in size. Contrast: Definity was used to optimize study. Intravenous contrast was used to enhance endocardial border definition. Measurements Chambers 2D Name Value Normal Range Ao root diameter (2D) 3.4 cm (2 - 3.7) Aortic Valve Name Value Normal Range AV Vmax 0.98 m/sec - AV VTI 16.76 cm - AV peak gradient 3.83 mmHg - AV mean gradient 2.57 mmHg - LVOT diameter 3.11 cm - LVOT Vmax 0.68 m/sec - LVOT VTI 11.52 cm - LVOT peak gradient 1.84 mmHg - LVOT mean gradient 1.27 mmHg - SV LVOT 87.31 ml - MALOU (continuity Vmax) 5.24 cm2 - MALOU (continuity VTI) 5.21 cm2 - Tricuspid Valve Name Value Normal Range IVC diameter 2.24 cm (1.2 - 2.3) Hoffman/IV: Voiding Method Indwelling Catheter IV Catheter Type [Left INT / Saline Lock Antecubital] IV Catheter Type [Right INT / Saline Lock Forearm] IV Catheter Type [Right Hand] Peripheral IV IV Catheter Type [Right Upper INT / Saline Lock arm] IV Catheter Type [Left Upper Mid-line arm] IV Catheter Type [Left Forearm Peripheral IV ] IV Catheter Type [Left Hand] INT / Saline Lock IV Catheter Type [Left Wrist] INT / Saline Lock IV Catheter Type [Right Peripheral IV Antecubital] Active Medications - Current Medications Current Medications: Generic Name Dose Route Start Last Admin Trade Name Freq PRN Reason Stop Dose Admin Acetaminophen 650 mg 12/19/20 04:29 Acetaminophen 325 Mg/10.15 Ml Oral Liqd Unit Dose FEEDTUBE Q6H PRN Pain, Mild (1-3) Lipase/Protease/Amylase 1 each 01/09/20 12:01 03/07/20 12:56 Lipase 10,500/Protease 25,000/Amylase 43,750 (Units) Dr Lauren FEEDTUBE 1 each PRN PRN Administration For Clogged Feeding Tube Apixaban 5 mg 01/22/20 22:00 03/11/20 22:53 Eliquis PO 5 mg Q12HR CAR Administration Protocol Atorvastatin Calcium 40 mg 01/20/20 22:00 03/11/20 22:54 Lipitor PO 40 mg QHS CAR Administration Clopidogrel Bisulfate 75 mg 01/21/20 06:00 03/11/20 10:41 Plavix PO 75 mg QDAY CAR Administration Dextrose 50 ml 01/31/20 18:51 02/05/20 00:56 D50w (25gm) Syringe IV 50 ml Q30MIN PRN Administration Hypoglycemia Protocol Digoxin 0.125 mg 02/25/20 17:00 03/11/20 18:24 Lanoxin PO 0.125 mg DAILY@1700 CAR Administration Docusate Sodium 100 mg 02/22/20 10:00 03/11/20 22:53 Colace FEEDTUBE 100 mg BID CAR Administration Glycopyrrolate 2 mg 02/24/20 21:00 03/11/20 22:52 Glycopyrrolate PO 2 mg TID CAR Administration Haloperidol Lactate 5 mg 02/10/20 14:20 03/03/20 02:25 Haloperidol Lactate 5 Mg/1 Ml Inj IV 5 mg Q6H PRN Administration Agitation Hydrophilic Ointment 1 applic 01/17/20 15:26 02/24/20 23:20 Vaseline Lip Therapy TP 1 applic DIRECT PRN Administration Dry Lips Insulin Human Regular 0 unit 02/01/20 18:00 03/12/20 06:09 Humulin R SUB-Q Not Given Q6H [facility] Protocol Lansoprazole 30 mg 02/05/20 16:00 03/11/20 10:41 Lansoprazole 30 Mg Solutab FEEDTUBE 30 mg QDAY CAR Administration Metoprolol Tartrate 5 mg 01/11/20 08:00 03/03/20 01:46 Metoprolol Tartrate 5 Mg/5 Ml Inj IV 5 mg Q6H PRN Administration SEE INSTRUCTIONS Metoprolol Tartrate 12.5 mg 02/28/20 12:00 03/11/20 22:54 Metoprolol FEEDTUBE 12.5 mg BID CAR Administration Midodrine 15 mg 02/04/20 16:00 03/11/20 18:24 Midodrine 5 Mg Tab PO 15 mg TID@0800,1200,1600 CAR Administration Morphine Sulfate 2 mg 01/06/20 15:41 03/11/20 10:42 Morphine 2 Mg/1 Ml Inj IV 2 mg Q4H PRN Administration Pain, Moderate (4-6) Multi-Ingred Cream/Lotion/Oil/Oint 1 applic 02/01/20 15:52 Artificial Tears Ophth Oint OU Q4HR PRN Dry Eye(s) Nitroglycerin 0.4 mg 01/19/20 21:09 01/20/20 03:03 Nitrostat SL 0.4 mg .Q5MIN PRN Administration Chest Pain Ondansetron HCl 4 mg 01/05/20 14:37 03/11/20 10:42 Ondansetron 4 Mg/2 Ml Inj IV 4 mg Q8H PRN Administration Nausea And Vomiting Polyethylene Glycol 17 gm 12/04/19 22:00 03/11/20 22:55 Miralax 3350 PO 17 gm QHS CAR Administration Quetiapine Fumarate 300 mg 01/13/20 22:00 03/11/20 22:55 Quetiapine 100 Mg Tab PO 300 mg BID CAR Administration Simple Syrup 15 ml 01/09/20 12:01 Simple Syrup 15 Ml FEEDTUBE PRN PRN Hypoglycemia Simple Syrup 30 ml 01/09/20 12:01 Simple Syrup 15 Ml FEEDTUBE PRN PRN Hypoglycemia Sodium Bicarbonate 325 mg 01/09/20 12:01 03/07/20 12:56 Sodium Bicarbonate 325 Mg Tab FEEDTUBE 325 mg PRN PRN Administration For Clogged Feeding Tube Sodium Chloride 10 ml 11/24/19 10:00 03/11/20 22:55 Sodium Chloride Flush Syringe 10 Ml IV 10 ml BID CAR Administration Tamsulosin HCl 0.8 mg 12/20/19 22:00 03/11/20 22:53 Flomax PO 0.8 mg QHS CAR Administration Nutrition/Malnutrition Assess - Dietary Evaluation Nutrition/Malnutrition Findings: Nutrition Notes Start: 11/24/19 12:22 Freq: Status: Active Protocol: Document 03/11/20 11:59 AB (Rec: 03/11/20 12:02 AB [id number]) Co-Sign 03/11/20 11:59 LP Nutrition Notes Initial or Follow up Reassessment Current Diagnosis Coronary Artery Disease,Heart Failure,Respiratory Failure, Stroke,Hyperlipidemia Other Pertinent Diagnosis Partial SBO, pneu Current Diet Osmolite 1.5 at 65ml/hr Labs/Tests Na 136 BUN 25 Cr 0.6 POC BG 181 Pertinent Medications Reviewed Height 6 ft 2 in Weight 126.2 kg [place] Body Weight (kg) 86.36 BMI 35.7 Weight Status Obese Subjective/Other Information F/U for TF rate/tolerance. Per RN, TF is being held for 4 hrs then started at a lower rate d/t nausea. Percent of energy/protein needs met: 0%/0% Burn Absent Trauma Absent GI Symptoms None Current % PO Negligible Minimum of two criteria Yes Muscle Mass Mild Depletion (non-severe) Fluid Accumulation Mild (non-severe) Reduced Manager Latin Strength Measurably Reduced (severe) #2 Nutrition Diagnosis Malnutrition Diagnosis Progress(for reassessment Continues documentation) #1 Nutrition Diagnosis Inadequate oral intake Diagnosis Progress(for reassessment Continues documentation) Is patient on ventilator? Yes Is Patient Ambulatory and/or Out of Bed No REE-([facility]-confined to bed) 2556.636 Kcal/Kg value to use for calculation 17 Approximate Energy Requirements Using 2145 kcal/Kg Calculation Used for Recommendations Kcal/kg Additional Notes Protein needs are 173g ( greater than 2g/kg IBW) Fluid needs are 1 ml/kcal Nutrition Intervention Change Diet Order: Continue TF via PEG Nutrition Support: Osmolite 1.5 at 65 ml/hr. Flush 200 ml q4h. Kcal 2,340 Protein (gm) 98 Fluid (mL) 1,189 Goal #1 Meet at least 75% of pt's energy and protein needs via TF Goal #2 Weight maintenance Anticipated Discharge Needs: unable to determine at this time Follow-Up By: 03/15/20 Additional Comments F/U TF rate/tolerance
[2020-03-12] MEDS: MIDODRINE 5 MG TAB PO SCH ×3 (08:23→16:26)
[2020-03-12] MEDS: GLYCOPYRROLATE 2 MG TAB PO SCH ×3 (08:23→19:37)
[2020-03-12] MEDS: METOPROLOL TARTRATE 25 MG TAB FEEDTUBE SCH (09:03)
[2020-03-12] MEDS: LANSOPRAZOLE 30 MG SOLUTAB FEEDTUBE SCH (09:13)
[2020-03-12] MEDS: QUEtiapine 100 MG TAB PO SCH ×2 (09:13→22:44)
[2020-03-12] MEDS: APIXABAN 5 MG TAB PO SCH ×2 (09:13→22:45)
[2020-03-12] MEDS: DOCUSATE SODIUM 100 MG/10 ML ORAL LIQD FEEDTUBE SCH ×2 (09:13→22:45)
[2020-03-12] MEDS: CLOPIDOGREL 75 MG TAB PO SCH (09:13)
--- NOTE | 2020-03-12 11:41 | Progress Note ---
Assessment and Plan Acute hypoxemic respiratory failure Bilateral pneumonia, community acquired. Acute LLL branch P.E. Acute DVT Person under investigation for COVID-19 infection. Acute congestive heart failure exacerbation. History of cerebrovascular accident. Acute chronic obstructive pulmonary disease exacerbation. Hypertension and hypertensive urgency at presentation. History of arthritis. Leukocytosis. Lactic acidosis. Oropharyngeal dysphagia -continue daily SATs and SBT assessment as tolerated -intermittent diuresis while monitoring renal function and hemodynamics -continue prn haldol for agitation to avoid hypoventilation -needs to stay awake during the day and sleep at night, gnosticist of sleep- wake cycle- discussed extensively with staff. Lights on, TV on. Stimulation -Continue tube feedings with anti-emetic/pro motility agents - continue Flomax - Midodrine for blood pressure - prn mucomyst nebs re: secretions - continue full anticoagulation with Apixaban - continue Seroquel for anxiolysis / delirium - continue to wean oxygen for O2 sats > 92% - continue bronchodilators with routine trach care and pulmonary hygiene per RT - continue Robinul & Scopolamine for secretion control - VAP bundle addressed (Aspiration precautions, HOB >40) - continue to wean per pulmonary driven protocols - continue prn analgesia per CPOT score - Avoid delirium (no benzodiazepines if they can be avoided) - Maintain sleep-wake cycle - continue accuchecks with glycemic control per SSI for target blood glucose goal of 140-180 mg/dL while critically ill; Avoid hypoglycemia - continue stress ulcer prophylaxis with Famotidine - continue mobility protocols for pressure ulcer prevention - continue fall precautions - continue wound care management per RN / WCT - Supportive transfusions to keep HgB>7g/dL - Continue to monitor neurologic function - Continue all supportive care ........ re-evaluate in am & prn CONDITION: CRITICAL PROGNOSIS: GUARDED CODE STATUS: FULL CODE Subjective Date of service: 03/12/20 Principal diagnosis: Ac hypoxemic resp failure; Pneumonia; PUI COVID-19; CHF; COPD; HTN Interval history: Patient is seen today for: Acute hypoxemic respiratory failure; Adan. Pneumonia (CAP); PUI COVID-19 infection; AE-CHF; AE-COPD; H/O CVA; HTN; PE, DVT Seen and examined at bedside; 24 hour events reviewed; nursing and respiratory care staff consulted; no adverse overnight events reported to me; resting peacefully in bed; s/p trach on full support Mouths words to make needs known Objective Vital Signs - 12hr 03/11/20 03/12/20 03/12/20 23:54 00:00 00:01 Temperature 97.8 F Pulse Rate 125 H 112 H 108 H Pulse Rate [ 112 H From Monitor] Respiratory 18 15 Rate Blood Pressure 98/74 O2 Sat by Pulse 99 100 100 Oximetry O2 Sat by Pulse Oximetry [ Assessment] 03/12/20 03/12/20 03/12/20 01:00 02:00 03:01 Temperature Pulse Rate 118 H 115 H 123 H Pulse Rate [ From Monitor] Respiratory 21 16 21 Rate Blood Pressure 108/81 108/81 108/76 O2 Sat by Pulse 97 98 97 Oximetry O2 Sat by Pulse Oximetry [ Assessment] 03/12/20 03/12/20 03/12/20 03:36 04:00 04:01 Temperature 97.4 F L Pulse Rate 129 H 130 H Pulse Rate [ 129 H From Monitor] Respiratory 24 21 Rate Blood Pressure 107/84 O2 Sat by Pulse 96 100 Oximetry O2 Sat by Pulse Oximetry [ Assessment] 03/12/20 03/12/20 03/12/20 04:55 05:00 05:01 Temperature Pulse Rate 112 H 124 H Pulse Rate [ From Monitor] Respiratory 15 Rate Blood Pressure 101/72 72/56 O2 Sat by Pulse 95 100 Oximetry O2 Sat by Pulse 95 Oximetry [ Assessment] 03/12/20 03/12/20 03/12/20 06:01 07:00 08:00 Temperature 97.3 F L Pulse Rate 114 H 133 H 120 H Pulse Rate [ 120 H From Monitor] Respiratory 18 21 24 Rate Blood Pressure 102/69 102/69 O2 Sat by Pulse 100 88 96 Oximetry O2 Sat by Pulse Oximetry [ Assessment] 03/12/20 03/12/20 03/12/20 08:02 08:39 09:00 Temperature Pulse Rate 109 H 116 H 108 H Pulse Rate [ From Monitor] Respiratory 10 L 18 Rate Blood Pressure 115/69 115/69 96/74 O2 Sat by Pulse 99 97 98 Oximetry O2 Sat by Pulse Oximetry [ Assessment] 03/12/20 03/12/20 09:03 10:01 Temperature Pulse Rate 116 H 124 H Pulse Rate [ From Monitor] Respiratory 17 Rate Blood Pressure 96/74 96/74 O2 Sat by Pulse Oximetry O2 Sat by Pulse Oximetry [ Assessment] Constitutional: no acute distress, asleep, other (Patient is resting on mechanical ventilation, awake and makes needs know by mouthing words and phonating around trach) Eyes: non-icteric ENT: oropharynx moist, other (+ midline tracheostomy) Neck: supple, no JVD Effort: mildly labored Ascultation: Bilateral: clear, diminished breath sounds, rhonchi (scant), other (mild tracheal secretions ) Percussion: Bilateral: not dull Cardiovascular: irregular rhythm Gastrointestinal: normoactive bowel sounds, soft, non-tender, non-distended, other (protuberant; PEG in place) Integumentary: normal Extremities: no cyanosis, pulses normal, no ischemia or petechiae, edema ( bilateral lower extemities) Neurologic: non-focal exam (moves extremities), pupils equal and round, other (Patient sleeping.) Psychiatric: other (sleeping but easily rousable) CBC and BMP: 03/09/20 06:32 03/09/20 06:32 ABG, PT/INR, D-dimer: ABG ABG pH 7.454 (7.320-7.450) H 03/12/20 04:45 POC ABG pCO2 45.6 mmHg (32.0-48.0) 03/12/20 04:45 ABG pCO2 47.8 mm Hg 02/20/20 06:45 POC ABG pO2 69.2 mmHg (83-108) L 03/12/20 04:45 ABG pO2 88.7 mm Hg (80.0-90.0) 02/20/20 06:45 POC ABG HCO3 31.3 03/12/20 04:45 ABG O2 Saturation 97.2 % (95.0-99.0) 02/20/20 06:45 PT/INR, D-dimer PT 27.0 Sec. (12.2-14.9) H 02/07/20 15:03 INR 2.46 (0.87-1.13) H 02/07/20 15:03 Abnormal lab findings: Abnormal Labs 11/24/19 11/24/19 11/24/19 02:53 02:53 03:45 WBC 14.3 H RBC Hgb Hct MCHC RDW 17.2 H MCV MCH Lymph % (Auto) [place] % (Auto) [place] # Eos # Lymph # (Auto) [place] # (Auto) Eos # (Auto) Seg Neutrophils % Seg Neuts % (Manual) Baso # (Auto) Lymphocytes % (Manual) Monocytes % (Manual) Eosinophils % (Manual) Basophils % (Manual) Seg Neutrophils # Seg Neutrophils # Man 8.3 H Lymphocytes # (Manual) Monocytes # (Manual) 0.9 H Eosinophils # (Manual) Nucleated RBC % Basophils # (Manual) PT INR APTT Heparin Anti-Xa Level ABG pH 7.313 L POC ABG pO2 ABG pO2 102.8 H ABG HCO3 ABG O2 Saturation ABG Base Excess -2.9 L POC ABG pCO2 ABG Hemoglobin ABG Oxyhemoglobin ABG Sodium ABG Chloride ABG Glucose Oxyhemoglobin 93.9 L Sodium Potassium Chloride Carbon Dioxide BUN Creatinine Glucose 195 H POC Glucose Lactic Acid Calcium Phosphorus Magnesium AST ALT Lactate Dehydrogenase Total Bilirubin Direct Bilirubin CK-MB (CK-2) 4.3 H C-Reactive Protein NT-Pro-B Natriuret Pep 1181 H Total Protein Albumin Arterial Blood Glucose Urine WBC (Auto) Urine Creatinine 11/24/19 11/24/19 11/24/19 04:53 04:53 10:37 WBC RBC Hgb Hct MCHC RDW MCV MCH Lymph % (Auto) [place] % (Auto) [place] # Eos # Lymph # (Auto) [place] # (Auto) Eos # (Auto) Seg Neutrophils % Seg Neuts % (Manual) Baso # (Auto) Lymphocytes % (Manual) Monocytes % (Manual) Eosinophils % (Manual) Basophils % (Manual) Seg Neutrophils # Seg Neutrophils # Man Lymphocytes # (Manual) Monocytes # (Manual) Eosinophils # (Manual) Nucleated RBC % Basophils # (Manual) PT INR APTT Heparin Anti-Xa Level ABG pH POC ABG pO2 ABG pO2 ABG HCO3 ABG O2 Saturation ABG Base Excess POC ABG pCO2 ABG Hemoglobin ABG Oxyhemoglobin ABG Sodium ABG Chloride ABG Glucose Oxyhemoglobin Sodium Potassium Chloride Carbon Dioxide BUN Creatinine Glucose 162 H POC Glucose Lactic Acid 2.40 H* 2.50 H* Calcium Phosphorus Magnesium AST ALT Lactate Dehydrogenase 240 H Total Bilirubin Direct Bilirubin CK-MB (CK-2) C-Reactive Protein NT-Pro-B Natriuret Pep Total Protein Albumin Arterial Blood Glucose Urine WBC (Auto) Urine Creatinine 09/01/20 09/01/20 09/01/20 12:21 14:50 19:54 WBC RBC Hgb Hct MCHC RDW MCV MCH Lymph % (Auto) [place] % (Auto) [place] # Eos # Lymph # (Auto) [place] # (Auto) Eos # (Auto) Seg Neutrophils % Seg Neuts % (Manual) Baso # (Auto) Lymphocytes % (Manual) Monocytes % (Manual) Eosinophils % (Manual) Basophils % (Manual) Seg Neutrophils # Seg Neutrophils # Man Lymphocytes # (Manual) Monocytes # (Manual) Eosinophils # (Manual) Nucleated RBC % Basophils # (Manual) PT INR APTT Heparin Anti-Xa Level ABG pH POC ABG pO2 ABG pO2 ABG HCO3 ABG O2 Saturation ABG Base Excess POC ABG pCO2 ABG Hemoglobin ABG Oxyhemoglobin ABG Sodium ABG Chloride ABG Glucose Oxyhemoglobin Sodium Potassium Chloride Carbon Dioxide BUN Creatinine Glucose POC Glucose 145 H 143 H 124 H Lactic Acid Calcium Phosphorus Magnesium AST ALT Lactate Dehydrogenase Total Bilirubin Direct Bilirubin CK-MB (CK-2) C-Reactive Protein NT-Pro-B Natriuret Pep Total Protein Albumin Arterial Blood Glucose Urine WBC (Auto) Urine Creatinine 11/25/19 11/25/19 11/25/19 00:18 03:18 05:11 WBC 13.7 H RBC Hgb Hct MCHC RDW 17.1 H MCV MCH Lymph % (Auto) 10.8 L [place] % (Auto) 8.7 H [place] # 1.2 H Eos # Lymph # (Auto) [place] # (Auto) Eos # (Auto) Seg Neutrophils % 80.2 H Seg Neuts % (Manual) Baso # (Auto) Lymphocytes % (Manual) Monocytes % (Manual) Eosinophils % (Manual) Basophils % (Manual) Seg Neutrophils # 11.0 H Seg Neutrophils # Man Lymphocytes # (Manual) Monocytes # (Manual) Eosinophils # (Manual) Nucleated RBC % Basophils # (Manual) PT INR APTT Heparin Anti-Xa Level ABG pH 7.333 L POC ABG pO2 ABG pO2 61.2 L ABG HCO3 ABG O2 Saturation 90.2 L ABG Base Excess POC ABG pCO2 ABG Hemoglobin 13.7 L ABG Oxyhemoglobin ABG Sodium ABG Chloride ABG Glucose Oxyhemoglobin 88.2 L Sodium Potassium Chloride Carbon Dioxide BUN Creatinine Glucose POC Glucose 109 H Lactic Acid Calcium Phosphorus Magnesium AST ALT Lactate Dehydrogenase Total Bilirubin Direct Bilirubin CK-MB (CK-2) C-Reactive Protein NT-Pro-B Natriuret Pep Total Protein Albumin Arterial Blood Glucose Urine WBC (Auto) Urine Creatinine 11/25/19 11/25/19 11/26/19 05:11 11:40 03:12 WBC RBC Hgb Hct MCHC RDW MCV MCH Lymph % (Auto) [place] % (Auto) [place] # Eos # Lymph # (Auto) [place] # (Auto) Eos # (Auto) Seg Neutrophils % Seg Neuts % (Manual) Baso # (Auto) Lymphocytes % (Manual) Monocytes % (Manual) Eosinophils % (Manual) Basophils % (Manual) Seg Neutrophils # Seg Neutrophils # Man Lymphocytes # (Manual) Monocytes # (Manual) Eosinophils # (Manual) Nucleated RBC % Basophils # (Manual) PT INR APTT Heparin Anti-Xa Level ABG pH POC ABG pO2 ABG pO2 155.1 H ABG HCO3 27.8 H ABG O2 Saturation ABG Base Excess POC ABG pCO2 ABG Hemoglobin 12.2 L ABG Oxyhemoglobin ABG Sodium ABG Chloride ABG Glucose Oxyhemoglobin Sodium Potassium Chloride Carbon Dioxide BUN 23 H Creatinine Glucose 110 H POC Glucose 108 H Lactic Acid Calcium Phosphorus Magnesium AST ALT Lactate Dehydrogenase Total Bilirubin Direct Bilirubin CK-MB (CK-2) C-Reactive Protein NT-Pro-B Natriuret Pep Total Protein Albumin Arterial Blood Glucose Urine WBC (Auto) Urine Creatinine 11/26/19 11/26/19 11/26/19 06:17 10:43 10:43 WBC 11.4 H RBC Hgb Hct MCHC RDW 17.1 H MCV MCH Lymph % (Auto) [place] % (Auto) [place] # Eos # Lymph # (Auto) [place] # (Auto) Eos # (Auto) Seg Neutrophils % Seg Neuts % (Manual) Baso # (Auto) Lymphocytes % (Manual) Monocytes % (Manual) Eosinophils % (Manual) Basophils % (Manual) Seg Neutrophils # Seg Neutrophils # Man Lymphocytes # (Manual) Monocytes # (Manual) Eosinophils # (Manual) Nucleated RBC % Basophils # (Manual) PT INR APTT Heparin Anti-Xa Level ABG pH POC ABG pO2 ABG pO2 ABG HCO3 ABG O2 Saturation ABG Base Excess POC ABG pCO2 ABG Hemoglobin ABG Oxyhemoglobin ABG Sodium ABG Chloride ABG Glucose Oxyhemoglobin Sodium Potassium Chloride Carbon Dioxide BUN 29 H Creatinine Glucose POC Glucose 107 H Lactic Acid Calcium Phosphorus Magnesium AST ALT Lactate Dehydrogenase Total Bilirubin Direct Bilirubin CK-MB (CK-2) C-Reactive Protein NT-Pro-B Natriuret Pep Total Protein Albumin Arterial Blood Glucose Urine WBC (Auto) Urine Creatinine 11/26/19 11/27/19 11/27/19 17:11 01:53 04:11 WBC RBC Hgb Hct MCHC RDW MCV MCH Lymph % (Auto) [place] % (Auto) [place] # Eos # Lymph # (Auto) [place] # (Auto) Eos # (Auto) Seg Neutrophils % Seg Neuts % (Manual) Baso # (Auto) Lymphocytes % (Manual) Monocytes % (Manual) Eosinophils % (Manual) Basophils % (Manual) Seg Neutrophils # Seg Neutrophils # Man Lymphocytes # (Manual) Monocytes # (Manual) Eosinophils # (Manual) Nucleated RBC % Basophils # (Manual) PT INR APTT Heparin Anti-Xa Level ABG pH POC ABG pO2 ABG pO2 ABG HCO3 29.2 H ABG O2 Saturation ABG Base Excess 3.4 H POC ABG pCO2 ABG Hemoglobin 13.3 L ABG Oxyhemoglobin ABG Sodium ABG Chloride ABG Glucose Oxyhemoglobin 94.5 L Sodium Potassium Chloride Carbon Dioxide BUN Creatinine Glucose POC Glucose 113 H 108 H Lactic Acid Calcium Phosphorus Magnesium AST ALT Lactate Dehydrogenase Total Bilirubin Direct Bilirubin CK-MB (CK-2) C-Reactive Protein NT-Pro-B Natriuret Pep Total Protein Albumin Arterial Blood Glucose Urine WBC (Auto) Urine Creatinine 11/27/19 11/28/19 11/28/19 05:27 05:00 05:25 WBC RBC Hgb Hct MCHC RDW MCV MCH Lymph % (Auto) [place] % (Auto) [place] # Eos # Lymph # (Auto) [place] # (Auto) Eos # (Auto) Seg Neutrophils % Seg Neuts % (Manual) Baso # (Auto) Lymphocytes % (Manual) Monocytes % (Manual) Eosinophils % (Manual) Basophils % (Manual) Seg Neutrophils # Seg Neutrophils # Man Lymphocytes # (Manual) Monocytes # (Manual) Eosinophils # (Manual) Nucleated RBC % Basophils # (Manual) PT INR APTT Heparin Anti-Xa Level ABG pH POC ABG pO2 68.1 L ABG pO2 ABG HCO3 ABG O2 Saturation ABG Base Excess POC ABG pCO2 ABG Hemoglobin ABG Oxyhemoglobin 91.2 L ABG Sodium ABG Chloride ABG Glucose Oxyhemoglobin Sodium Potassium Chloride Carbon Dioxide BUN Creatinine Glucose POC Glucose 111 H 110 H Lactic Acid Calcium Phosphorus Magnesium AST ALT Lactate Dehydrogenase Total Bilirubin Direct Bilirubin CK-MB (CK-2) C-Reactive Protein NT-Pro-B Natriuret Pep Total Protein Albumin Arterial Blood Glucose Urine WBC (Auto) Urine Creatinine 11/28/19 11/28/19 11/28/19 12:08 13:47 13:47 WBC 11.3 H RBC Hgb Hct MCHC RDW 16.1 H MCV MCH Lymph % (Auto) [place] % (Auto) 9.9 H [place] # 1.1 H Eos # Lymph # (Auto) [place] # (Auto) Eos # (Auto) Seg Neutrophils % 71.4 H Seg Neuts % (Manual) Baso # (Auto) Lymphocytes % (Manual) Monocytes % (Manual) Eosinophils % (Manual) Basophils % (Manual) Seg Neutrophils # 8.1 H Seg Neutrophils # Man Lymphocytes # (Manual) Monocytes # (Manual) Eosinophils # (Manual) Nucleated RBC % Basophils # (Manual) PT INR APTT Heparin Anti-Xa Level ABG pH POC ABG pO2 ABG pO2 ABG HCO3 ABG O2 Saturation ABG Base Excess POC ABG pCO2 ABG Hemoglobin ABG Oxyhemoglobin ABG Sodium ABG Chloride ABG Glucose Oxyhemoglobin Sodium Potassium Chloride Carbon Dioxide BUN 23 H Creatinine Glucose 123 H POC Glucose 112 H Lactic Acid Calcium Phosphorus Magnesium AST ALT Lactate Dehydrogenase Total Bilirubin Direct Bilirubin CK-MB (CK-2) C-Reactive Protein NT-Pro-B Natriuret Pep Total Protein Albumin 3.7 L Arterial Blood Glucose Urine WBC (Auto) Urine Creatinine 11/28/19 11/29/19 11/29/19 17:26 03:55 17:04 WBC RBC Hgb Hct MCHC RDW MCV MCH Lymph % (Auto) [place] % (Auto) [place] # Eos # Lymph # (Auto) [place] # (Auto) Eos # (Auto) Seg Neutrophils % Seg Neuts % (Manual) Baso # (Auto) Lymphocytes % (Manual) Monocytes % (Manual) Eosinophils % (Manual) Basophils % (Manual) Seg Neutrophils # Seg Neutrophils # Man Lymphocytes # (Manual) Monocytes # (Manual) Eosinophils # (Manual) Nucleated RBC % Basophils # (Manual) PT INR APTT Heparin Anti-Xa Level ABG pH POC ABG pO2 ABG pO2 65.7 L ABG HCO3 28.3 H ABG O2 Saturation 93.9 L ABG Base Excess 3.6 H POC ABG pCO2 ABG Hemoglobin 13.3 L ABG Oxyhemoglobin ABG Sodium ABG Chloride ABG Glucose Oxyhemoglobin 91.5 L Sodium Potassium Chloride Carbon Dioxide BUN Creatinine Glucose POC Glucose 123 H 119 H Lactic Acid Calcium Phosphorus Magnesium AST ALT Lactate Dehydrogenase Total Bilirubin Direct Bilirubin CK-MB (CK-2) C-Reactive Protein NT-Pro-B Natriuret Pep Total Protein Albumin Arterial Blood Glucose Urine WBC (Auto) Urine Creatinine 11/30/19 11/30/19 11/30/19 04:17 04:17 04:56 WBC 13.4 H RBC Hgb Hct MCHC RDW 15.6 H MCV MCH Lymph % (Auto) [place] % (Auto) [place] # Eos # Lymph # (Auto) [place] # (Auto) Eos # (Auto) Seg Neutrophils % Seg Neuts % (Manual) Baso # (Auto) Lymphocytes % (Manual) Monocytes % (Manual) Eosinophils % (Manual) Basophils % (Manual) Seg Neutrophils # Seg Neutrophils # Man Lymphocytes # (Manual) Monocytes # (Manual) Eosinophils # (Manual) Nucleated RBC % Basophils # (Manual) PT INR APTT Heparin Anti-Xa Level ABG pH POC ABG pO2 ABG pO2 56.3 L ABG HCO3 29.3 H ABG O2 Saturation 91.5 L ABG Base Excess 4.7 H POC ABG pCO2 ABG Hemoglobin 12.1 L ABG Oxyhemoglobin ABG Sodium ABG Chloride ABG Glucose Oxyhemoglobin 89.2 L Sodium 147 H Potassium Chloride Carbon Dioxide BUN 30 H Creatinine Glucose 124 H POC Glucose Lactic Acid Calcium Phosphorus Magnesium AST ALT Lactate Dehydrogenase Total Bilirubin Direct Bilirubin CK-MB (CK-2) C-Reactive Protein NT-Pro-B Natriuret Pep Total Protein Albumin 3.8 L Arterial Blood Glucose Urine WBC (Auto) Urine Creatinine 11/30/19 11/30/19 11/30/19 05:51 11:54 18:17 WBC RBC Hgb Hct MCHC RDW MCV MCH Lymph % (Auto) [place] % (Auto) [place] # Eos # Lymph # (Auto) [place] # (Auto) Eos # (Auto) Seg Neutrophils % Seg Neuts % (Manual) Baso # (Auto) Lymphocytes % (Manual) Monocytes % (Manual) Eosinophils % (Manual) Basophils % (Manual) Seg Neutrophils # Seg Neutrophils # Man Lymphocytes # (Manual) Monocytes # (Manual) Eosinophils # (Manual) Nucleated RBC % Basophils # (Manual) PT INR APTT Heparin Anti-Xa Level ABG pH POC ABG pO2 ABG pO2 ABG HCO3 ABG O2 Saturation ABG Base Excess POC ABG pCO2 ABG Hemoglobin ABG Oxyhemoglobin ABG Sodium ABG Chloride ABG Glucose Oxyhemoglobin Sodium Potassium Chloride Carbon Dioxide BUN Creatinine Glucose POC Glucose 127 H 115 H 143 H Lactic Acid Calcium Phosphorus Magnesium AST ALT Lactate Dehydrogenase Total Bilirubin Direct Bilirubin CK-MB (CK-2) C-Reactive Protein NT-Pro-B Natriuret Pep Total Protein Albumin Arterial Blood Glucose Urine WBC (Auto) Urine Creatinine 12/01/19 12/01/19 12/01/19 01:18 05:22 12:16 WBC RBC Hgb Hct MCHC RDW MCV MCH Lymph % (Auto) [place] % (Auto) [place] # Eos # Lymph # (Auto) [place] # (Auto) Eos # (Auto) Seg Neutrophils % Seg Neuts % (Manual) Baso # (Auto) Lymphocytes % (Manual) Monocytes % (Manual) Eosinophils % (Manual) Basophils % (Manual) Seg Neutrophils # Seg Neutrophils # Man Lymphocytes # (Manual) Monocytes # (Manual) Eosinophils # (Manual) Nucleated RBC % Basophils # (Manual) PT INR APTT Heparin Anti-Xa Level ABG pH POC ABG pO2 ABG pO2 ABG HCO3 ABG O2 Saturation ABG Base Excess POC ABG pCO2 ABG Hemoglobin ABG Oxyhemoglobin ABG Sodium ABG Chloride ABG Glucose Oxyhemoglobin Sodium Potassium 3.5 L Chloride 107.8 H Carbon Dioxide BUN 37 H Creatinine Glucose 157 H POC Glucose 118 H 148 H Lactic Acid Calcium 8.2 L D Phosphorus Magnesium AST 48 H ALT 60 H Lactate Dehydrogenase 194 H Total Bilirubin Direct Bilirubin CK-MB (CK-2) C-Reactive Protein 8.50 H NT-Pro-B Natriuret Pep Total Protein 5.5 L Albumin 2.8 L Arterial Blood Glucose Urine WBC (Auto) Urine Creatinine 12/01/19 12/02/19 12/02/19 18:04 00:05 05:16 WBC 11.4 H RBC Hgb Hct MCHC RDW 15.9 H MCV MCH Lymph % (Auto) [place] % (Auto) 9.9 H [place] # 1.1 H Eos # Lymph # (Auto) [place] # (Auto) Eos # (Auto) Seg Neutrophils % 70.3 H Seg Neuts % (Manual) Baso # (Auto) Lymphocytes % (Manual) Monocytes % (Manual) Eosinophils % (Manual) Basophils % (Manual) Seg Neutrophils # 8.0 H Seg Neutrophils # Man Lymphocytes # (Manual) Monocytes # (Manual) Eosinophils # (Manual) Nucleated RBC % Basophils # (Manual) PT INR APTT Heparin Anti-Xa Level ABG pH POC ABG pO2 ABG pO2 ABG HCO3 ABG O2 Saturation ABG Base Excess POC ABG pCO2 ABG Hemoglobin ABG Oxyhemoglobin ABG Sodium ABG Chloride ABG Glucose Oxyhemoglobin Sodium Potassium Chloride Carbon Dioxide BUN Creatinine Glucose POC Glucose 143 H 107 H Lactic Acid Calcium Phosphorus Magnesium AST ALT Lactate Dehydrogenase Total Bilirubin Direct Bilirubin CK-MB (CK-2) C-Reactive Protein NT-Pro-B Natriuret Pep Total Protein Albumin Arterial Blood Glucose Urine WBC (Auto) Urine Creatinine 12/02/19 12/02/19 12/02/19 05:16 06:03 11:52 WBC RBC Hgb Hct MCHC RDW MCV MCH Lymph % (Auto) [place] % (Auto) [place] # Eos # Lymph # (Auto) [place] # (Auto) Eos # (Auto) Seg Neutrophils % Seg Neuts % (Manual) Baso # (Auto) Lymphocytes % (Manual) Monocytes % (Manual) Eosinophils % (Manual) Basophils % (Manual) Seg Neutrophils # Seg Neutrophils # Man Lymphocytes # (Manual) Monocytes # (Manual) Eosinophils # (Manual) Nucleated RBC % Basophils # (Manual) PT INR APTT Heparin Anti-Xa Level ABG pH POC ABG pO2 ABG pO2 ABG HCO3 ABG O2 Saturation ABG Base Excess POC ABG pCO2 ABG Hemoglobin ABG Oxyhemoglobin ABG Sodium ABG Chloride ABG Glucose Oxyhemoglobin Sodium 146 H Potassium Chloride Carbon Dioxide BUN 28 H Creatinine Glucose 123 H POC Glucose 110 H 152 H Lactic Acid Calcium Phosphorus Magnesium AST ALT Lactate Dehydrogenase Total Bilirubin Direct Bilirubin CK-MB (CK-2) C-Reactive Protein NT-Pro-B Natriuret Pep Total Protein Albumin Arterial Blood Glucose Urine WBC (Auto) Urine Creatinine 12/02/19 12/02/19 12/02/19 12:58 17:58 23:36 WBC RBC Hgb Hct MCHC RDW MCV MCH Lymph % (Auto) [place] % (Auto) [place] # Eos # Lymph # (Auto) [place] # (Auto) Eos # (Auto) Seg Neutrophils % Seg Neuts % (Manual) Baso # (Auto) Lymphocytes % (Manual) Monocytes % (Manual) Eosinophils % (Manual) Basophils % (Manual) Seg Neutrophils # Seg Neutrophils # Man Lymphocytes # (Manual) Monocytes # (Manual) Eosinophils # (Manual) Nucleated RBC % Basophils # (Manual) PT INR APTT Heparin Anti-Xa Level ABG pH POC ABG pO2 78.1 L ABG pO2 ABG HCO3 ABG O2 Saturation ABG Base Excess POC ABG pCO2 ABG Hemoglobin ABG Oxyhemoglobin ABG Sodium ABG Chloride ABG Glucose Oxyhemoglobin Sodium Potassium Chloride Carbon Dioxide BUN Creatinine Glucose POC Glucose 120 H 123 H Lactic Acid Calcium Phosphorus Magnesium AST ALT Lactate Dehydrogenase Total Bilirubin Direct Bilirubin CK-MB (CK-2) C-Reactive Protein NT-Pro-B Natriuret Pep Total Protein Albumin Arterial Blood Glucose Urine WBC (Auto) Urine Creatinine 12/03/19 12/03/19 12/03/19 06:03 06:14 11:46 WBC RBC Hgb Hct MCHC RDW MCV MCH Lymph % (Auto) [place] % (Auto) [place] # Eos # Lymph # (Auto) [place] # (Auto) Eos # (Auto) Seg Neutrophils % Seg Neuts % (Manual) Baso # (Auto) Lymphocytes % (Manual) Monocytes % (Manual) Eosinophils % (Manual) Basophils % (Manual) Seg Neutrophils # Seg Neutrophils # Man Lymphocytes # (Manual) Monocytes # (Manual) Eosinophils # (Manual) Nucleated RBC % Basophils # (Manual) PT INR APTT Heparin Anti-Xa Level ABG pH POC ABG pO2 ABG pO2 ABG HCO3 ABG O2 Saturation ABG Base Excess POC ABG pCO2 ABG Hemoglobin ABG Oxyhemoglobin ABG Sodium ABG Chloride ABG Glucose Oxyhemoglobin Sodium Potassium Chloride Carbon Dioxide BUN Creatinine Glucose POC Glucose 142 H 130 H Lactic Acid Calcium Phosphorus Magnesium AST ALT Lactate Dehydrogenase Total Bilirubin Direct Bilirubin CK-MB (CK-2) C-Reactive Protein NT-Pro-B Natriuret Pep Total Protein Albumin Arterial Blood Glucose Urine WBC (Auto) 8.0 H Urine Creatinine 12/03/19 12/03/19 12/04/19 15:50 17:39 00:04 WBC RBC Hgb Hct MCHC RDW MCV MCH Lymph % (Auto) [place] % (Auto) [place] # Eos # Lymph # (Auto) [place] # (Auto) Eos # (Auto) Seg Neutrophils % Seg Neuts % (Manual) Baso # (Auto) Lymphocytes % (Manual) Monocytes % (Manual) Eosinophils % (Manual) Basophils % (Manual) Seg Neutrophils # Seg Neutrophils # Man Lymphocytes # (Manual) Monocytes # (Manual) Eosinophils # (Manual) Nucleated RBC % Basophils # (Manual) PT INR APTT Heparin Anti-Xa Level ABG pH POC ABG pO2 ABG pO2 ABG HCO3 ABG O2 Saturation ABG Base Excess POC ABG pCO2 ABG Hemoglobin ABG Oxyhemoglobin ABG Sodium ABG Chloride ABG Glucose Oxyhemoglobin Sodium Potassium Chloride Carbon Dioxide BUN Creatinine Glucose POC Glucose 146 H 133 H Lactic Acid Calcium Phosphorus 2.40 L Magnesium AST ALT Lactate Dehydrogenase Total Bilirubin Direct Bilirubin CK-MB (CK-2) C-Reactive Protein NT-Pro-B Natriuret Pep Total Protein Albumin Arterial Blood Glucose Urine WBC (Auto) Urine Creatinine 12/04/19 12/04/19 12/04/19 03:58 03:58 05:22 WBC 12.5 H RBC Hgb 11.2 L Hct 35.2 L MCHC RDW 16.0 H MCV MCH Lymph % (Auto) [place] % (Auto) 9.6 H [place] # 1.2 H Eos # 0.5 H Lymph # (Auto) [place] # (Auto) Eos # (Auto) Seg Neutrophils % Seg Neuts % (Manual) Baso # (Auto) Lymphocytes % (Manual) Monocytes % (Manual) Eosinophils % (Manual) Basophils % (Manual) Seg Neutrophils # 8.6 H Seg Neutrophils # Man Lymphocytes # (Manual) Monocytes # (Manual) Eosinophils # (Manual) Nucleated RBC % Basophils # (Manual) PT INR APTT Heparin Anti-Xa Level ABG pH POC ABG pO2 ABG pO2 ABG HCO3 ABG O2 Saturation ABG Base Excess POC ABG pCO2 ABG Hemoglobin ABG Oxyhemoglobin ABG Sodium ABG Chloride ABG Glucose Oxyhemoglobin Sodium 146 H Potassium Chloride 108.6 H Carbon Dioxide BUN 30 H Creatinine 0.7 L Glucose 121 H POC Glucose 132 H Lactic Acid Calcium Phosphorus Magnesium AST ALT Lactate Dehydrogenase Total Bilirubin Direct Bilirubin CK-MB (CK-2) C-Reactive Protein NT-Pro-B Natriuret Pep Total Protein Albumin Arterial Blood Glucose Urine WBC (Auto) Urine Creatinine 12/04/19 12/04/19 12/05/19 13:26 18:43 00:19 WBC RBC Hgb Hct MCHC RDW MCV MCH Lymph % (Auto) [place] % (Auto) [place] # Eos # Lymph # (Auto) [place] # (Auto) Eos # (Auto) Seg Neutrophils % Seg Neuts % (Manual) Baso # (Auto) Lymphocytes % (Manual) Monocytes % (Manual) Eosinophils % (Manual) Basophils % (Manual) Seg Neutrophils # Seg Neutrophils # Man Lymphocytes # (Manual) Monocytes # (Manual) Eosinophils # (Manual) Nucleated RBC % Basophils # (Manual) PT INR APTT Heparin Anti-Xa Level ABG pH POC ABG pO2 ABG pO2 ABG HCO3 ABG O2 Saturation ABG Base Excess POC ABG pCO2 ABG Hemoglobin ABG Oxyhemoglobin ABG Sodium ABG Chloride ABG Glucose Oxyhemoglobin Sodium Potassium Chloride Carbon Dioxide BUN Creatinine Glucose POC Glucose 185 H 156 H 150 H Lactic Acid Calcium Phosphorus Magnesium AST ALT Lactate Dehydrogenase Total Bilirubin Direct Bilirubin CK-MB (CK-2) C-Reactive Protein NT-Pro-B Natriuret Pep Total Protein Albumin Arterial Blood Glucose Urine WBC (Auto) Urine Creatinine 12/05/19 12/05/19 12/05/19 03:37 03:37 05:14 WBC 16.3 H RBC Hgb 11.4 L Hct MCHC RDW 15.6 H MCV MCH Lymph % (Auto) 9.9 L [place] % (Auto) 9.7 H [place] # 1.6 H Eos # Lymph # (Auto) [place] # (Auto) Eos # (Auto) Seg Neutrophils % 78.0 H Seg Neuts % (Manual) Baso # (Auto) Lymphocytes % (Manual) Monocytes % (Manual) Eosinophils % (Manual) Basophils % (Manual) Seg Neutrophils # 12.7 H Seg Neutrophils # Man Lymphocytes # (Manual) Monocytes # (Manual) Eosinophils # (Manual) Nucleated RBC % Basophils # (Manual) PT INR APTT Heparin Anti-Xa Level ABG pH POC ABG pO2 ABG pO2 ABG HCO3 ABG O2 Saturation ABG Base Excess POC ABG pCO2 ABG Hemoglobin ABG Oxyhemoglobin ABG Sodium ABG Chloride ABG Glucose Oxyhemoglobin Sodium 146 H Potassium Chloride 107.2 H Carbon Dioxide BUN 27 H Creatinine 0.7 L Glucose 171 H POC Glucose 168 H Lactic Acid Calcium Phosphorus Magnesium AST ALT Lactate Dehydrogenase Total Bilirubin Direct Bilirubin CK-MB (CK-2) C-Reactive Protein NT-Pro-B Natriuret Pep Total Protein Albumin Arterial Blood Glucose Urine WBC (Auto) Urine Creatinine 12/05/19 12/05/1920 12:31 18:10 23:58 WBC RBC Hgb Hct MCHC RDW MCV MCH Lymph % (Auto) [place] % (Auto) [place] # Eos # Lymph # (Auto) [place] # (Auto) Eos # (Auto) Seg Neutrophils % Seg Neuts % (Manual) Baso # (Auto) Lymphocytes % (Manual) Monocytes % (Manual) Eosinophils % (Manual) Basophils % (Manual) Seg Neutrophils # Seg Neutrophils # Man Lymphocytes # (Manual) Monocytes # (Manual) Eosinophils # (Manual) Nucleated RBC % Basophils # (Manual) PT INR APTT Heparin Anti-Xa Level ABG pH POC ABG pO2 ABG pO2 ABG HCO3 ABG O2 Saturation ABG Base Excess POC ABG pCO2 ABG Hemoglobin ABG Oxyhemoglobin ABG Sodium ABG Chloride ABG Glucose Oxyhemoglobin Sodium Potassium Chloride Carbon Dioxide BUN Creatinine Glucose POC Glucose 159 H 198 H 115 H Lactic Acid Calcium Phosphorus Magnesium AST ALT Lactate Dehydrogenase Total Bilirubin Direct Bilirubin CK-MB (CK-2) C-Reactive Protein NT-Pro-B Natriuret Pep Total Protein Albumin Arterial Blood Glucose Urine WBC (Auto) Urine Creatinine 12/06/19 12/06/19 12/06/19 05:24 05:24 05:25 WBC 14.9 H RBC Hgb 10.8 L Hct 34.0 L MCHC RDW 15.6 H MCV MCH Lymph % (Auto) 10.7 L [place] % (Auto) 8.3 H [place] # 1.2 H Eos # Lymph # (Auto) [place] # (Auto) Eos # (Auto) Seg Neutrophils % 78.7 H Seg Neuts % (Manual) Baso # (Auto) Lymphocytes % (Manual) Monocytes % (Manual) Eosinophils % (Manual) Basophils % (Manual) Seg Neutrophils # 11.7 H Seg Neutrophils # Man Lymphocytes # (Manual) Monocytes # (Manual) Eosinophils # (Manual) Nucleated RBC % Basophils # (Manual) PT INR APTT Heparin Anti-Xa Level ABG pH POC ABG pO2 ABG pO2 ABG HCO3 ABG O2 Saturation ABG Base Excess POC ABG pCO2 ABG Hemoglobin ABG Oxyhemoglobin ABG Sodium ABG Chloride ABG Glucose Oxyhemoglobin Sodium 148 H Potassium 5.1 H Chloride 107.6 H Carbon Dioxide BUN 27 H Creatinine 0.7 L Glucose 155 H POC Glucose 157 H Lactic Acid Calcium Phosphorus Magnesium AST ALT Lactate Dehydrogenase Total Bilirubin Direct Bilirubin CK-MB (CK-2) C-Reactive Protein NT-Pro-B Natriuret Pep Total Protein Albumin Arterial Blood Glucose Urine WBC (Auto) Urine Creatinine 12/07/19 12/07/19 12/07/19 00:13 05:34 11:33 WBC RBC Hgb Hct MCHC RDW MCV MCH Lymph % (Auto) [place] % (Auto) [place] # Eos # Lymph # (Auto) [place] # (Auto) Eos # (Auto) Seg Neutrophils % Seg Neuts % (Manual) Baso # (Auto) Lymphocytes % (Manual) Monocytes % (Manual) Eosinophils % (Manual) Basophils % (Manual) Seg Neutrophils # Seg Neutrophils # Man Lymphocytes # (Manual) Monocytes # (Manual) Eosinophils # (Manual) Nucleated RBC % Basophils # (Manual) PT INR APTT Heparin Anti-Xa Level ABG pH POC ABG pO2 ABG pO2 ABG HCO3 ABG O2 Saturation ABG Base Excess POC ABG pCO2 ABG Hemoglobin ABG Oxyhemoglobin ABG Sodium ABG Chloride ABG Glucose Oxyhemoglobin Sodium Potassium Chloride Carbon Dioxide BUN Creatinine Glucose POC Glucose 142 H 111 H 169 H Lactic Acid Calcium Phosphorus Magnesium AST ALT Lactate Dehydrogenase Total Bilirubin Direct Bilirubin CK-MB (CK-2) C-Reactive Protein NT-Pro-B Natriuret Pep Total Protein Albumin Arterial Blood Glucose Urine WBC (Auto) Urine Creatinine 12/07/19 12/07/19 12/07/19 12:41 13:25 18:19 WBC 12.4 H RBC 3.53 L Hgb 10.2 L Hct 32.1 L MCHC RDW 15.3 H MCV MCH Lymph % (Auto) 10.6 L [place] % (Auto) 7.8 H [place] # 1.0 H Eos # Lymph # (Auto) [place] # (Auto) Eos # (Auto) Seg Neutrophils % 77.6 H Seg Neuts % (Manual) Baso # (Auto) Lymphocytes % (Manual) Monocytes % (Manual) Eosinophils % (Manual) Basophils % (Manual) Seg Neutrophils # 9.6 H Seg Neutrophils # Man Lymphocytes # (Manual) Monocytes # (Manual) Eosinophils # (Manual) Nucleated RBC % Basophils # (Manual) PT INR APTT Heparin Anti-Xa Level ABG pH POC ABG pO2 ABG pO2 ABG HCO3 ABG O2 Saturation ABG Base Excess POC ABG pCO2 ABG Hemoglobin ABG Oxyhemoglobin ABG Sodium ABG Chloride ABG Glucose Oxyhemoglobin Sodium 149 H Potassium Chloride 108.4 H Carbon Dioxide BUN 26 H Creatinine 0.6 L Glucose 149 H POC Glucose 164 H Lactic Acid Calcium Phosphorus Magnesium 2.60 H AST 121 H ALT 145 H Lactate Dehydrogenase Total Bilirubin Direct Bilirubin CK-MB (CK-2) C-Reactive Protein NT-Pro-B Natriuret Pep Total Protein Albumin 2.6 L Arterial Blood Glucose Urine WBC (Auto) Urine Creatinine 12/07/19 12/08/19 12/08/19 22:25 00:02 03:55 WBC 13.3 H RBC 3.40 L Hgb 9.7 L Hct 30.8 L MCHC 31 L RDW 15.5 H MCV MCH Lymph % (Auto) [place] % (Auto) 8.1 H [place] # 1.1 H Eos # Lymph # (Auto) [place] # (Auto) Eos # (Auto) Seg Neutrophils % 73.0 H Seg Neuts % (Manual) Baso # (Auto) Lymphocytes % (Manual) Monocytes % (Manual) Eosinophils % (Manual) Basophils % (Manual) Seg Neutrophils # 9.7 H Seg Neutrophils # Man Lymphocytes # (Manual) Monocytes # (Manual) Eosinophils # (Manual) Nucleated RBC % Basophils # (Manual) PT INR APTT Heparin Anti-Xa Level 0.12 L ABG pH POC ABG pO2 ABG pO2 ABG HCO3 ABG O2 Saturation ABG Base Excess POC ABG pCO2 ABG Hemoglobin ABG Oxyhemoglobin ABG Sodium ABG Chloride ABG Glucose Oxyhemoglobin Sodium Potassium Chloride Carbon Dioxide BUN Creatinine Glucose POC Glucose 151 H Lactic Acid Calcium Phosphorus Magnesium AST ALT Lactate Dehydrogenase Total Bilirubin Direct Bilirubin CK-MB (CK-2) C-Reactive Protein NT-Pro-B Natriuret Pep Total Protein Albumin Arterial Blood Glucose Urine WBC (Auto) Urine Creatinine 12/08/19 12/08/19 12/08/19 03:55 05:21 06:01 WBC RBC Hgb Hct MCHC RDW MCV MCH Lymph % (Auto) [place] % (Auto) [place] # Eos # Lymph # (Auto) [place] # (Auto) Eos # (Auto) Seg Neutrophils % Seg Neuts % (Manual) Baso # (Auto) Lymphocytes % (Manual) Monocytes % (Manual) Eosinophils % (Manual) Basophils % (Manual) Seg Neutrophils # Seg Neutrophils # Man Lymphocytes # (Manual) Monocytes # (Manual) Eosinophils # (Manual) Nucleated RBC % Basophils # (Manual) PT INR APTT Heparin Anti-Xa Level 0.20 L ABG pH POC ABG pO2 ABG pO2 ABG HCO3 ABG O2 Saturation ABG Base Excess POC ABG pCO2 ABG Hemoglobin ABG Oxyhemoglobin ABG Sodium ABG Chloride ABG Glucose Oxyhemoglobin Sodium 149 H Potassium Chloride 108.0 H Carbon Dioxide BUN 28 H Creatinine 0.6 L Glucose 144 H POC Glucose 143 H Lactic Acid Calcium Phosphorus Magnesium AST 98 H ALT 145 H Lactate Dehydrogenase Total Bilirubin Direct Bilirubin CK-MB (CK-2) C-Reactive Protein NT-Pro-B Natriuret Pep Total Protein 6.0 L Albumin 2.4 L Arterial Blood Glucose Urine WBC (Auto) Urine Creatinine 12/08/19 12/08/19 12/08/19 12:08 18:11 23:53 WBC RBC Hgb Hct MCHC RDW MCV MCH Lymph % (Auto) [place] % (Auto) [place] # Eos # Lymph # (Auto) [place] # (Auto) Eos # (Auto) Seg Neutrophils % Seg Neuts % (Manual) Baso # (Auto) Lymphocytes % (Manual) Monocytes % (Manual) Eosinophils % (Manual) Basophils % (Manual) Seg Neutrophils # Seg Neutrophils # Man Lymphocytes # (Manual) Monocytes # (Manual) Eosinophils # (Manual) Nucleated RBC % Basophils # (Manual) PT INR APTT Heparin Anti-Xa Level ABG pH POC ABG pO2 ABG pO2 ABG HCO3 ABG O2 Saturation ABG Base Excess POC ABG pCO2 ABG Hemoglobin ABG Oxyhemoglobin ABG Sodium ABG Chloride ABG Glucose Oxyhemoglobin Sodium Potassium Chloride Carbon Dioxide BUN Creatinine Glucose POC Glucose 172 H 122 H 162 H Lactic Acid Calcium Phosphorus Magnesium AST ALT Lactate Dehydrogenase Total Bilirubin Direct Bilirubin CK-MB (CK-2) C-Reactive Protein NT-Pro-B Natriuret Pep Total Protein Albumin Arterial Blood Glucose Urine WBC (Auto) Urine Creatinine 12/09/19 12/09/19 12/09/19 04:03 04:03 05:53 WBC RBC Hgb 9.1 L Hct 28.9 L MCHC RDW MCV MCH Lymph % (Auto) [place] % (Auto) [place] # Eos # Lymph # (Auto) [place] # (Auto) Eos # (Auto) Seg Neutrophils % Seg Neuts % (Manual) Baso # (Auto) Lymphocytes % (Manual) Monocytes % (Manual) Eosinophils % (Manual) Basophils % (Manual) Seg Neutrophils # Seg Neutrophils # Man Lymphocytes # (Manual) Monocytes # (Manual) Eosinophils # (Manual) Nucleated RBC % Basophils # (Manual) PT INR APTT Heparin Anti-Xa Level 0.15 L ABG pH POC ABG pO2 ABG pO2 ABG HCO3 ABG O2 Saturation ABG Base Excess POC ABG pCO2 ABG Hemoglobin ABG Oxyhemoglobin ABG Sodium ABG Chloride ABG Glucose Oxyhemoglobin Sodium Potassium Chloride Carbon Dioxide BUN Creatinine Glucose POC Glucose 124 H Lactic Acid Calcium Phosphorus Magnesium AST ALT Lactate Dehydrogenase Total Bilirubin Direct Bilirubin CK-MB (CK-2) C-Reactive Protein NT-Pro-B Natriuret Pep Total Protein Albumin Arterial Blood Glucose Urine WBC (Auto) Urine Creatinine 12/09/19 12/09/19 12/10/19 09:43 12:41 00:13 WBC RBC Hgb Hct MCHC RDW MCV MCH Lymph % (Auto) [place] % (Auto) [place] # Eos # Lymph # (Auto) [place] # (Auto) Eos # (Auto) Seg Neutrophils % Seg Neuts % (Manual) Baso # (Auto) Lymphocytes % (Manual) Monocytes % (Manual) Eosinophils % (Manual) Basophils % (Manual) Seg Neutrophils # Seg Neutrophils # Man Lymphocytes # (Manual) Monocytes # (Manual) Eosinophils # (Manual) Nucleated RBC % Basophils # (Manual) PT INR APTT Heparin Anti-Xa Level ABG pH POC ABG pO2 ABG pO2 ABG HCO3 ABG O2 Saturation ABG Base Excess POC ABG pCO2 ABG Hemoglobin ABG Oxyhemoglobin ABG Sodium ABG Chloride ABG Glucose Oxyhemoglobin Sodium Potassium Chloride Carbon Dioxide BUN 25 H Creatinine 0.6 L Glucose 131 H POC Glucose 109 H 120 H Lactic Acid Calcium Phosphorus Magnesium AST ALT Lactate Dehydrogenase Total Bilirubin Direct Bilirubin CK-MB (CK-2) C-Reactive Protein NT-Pro-B Natriuret Pep Total Protein Albumin Arterial Blood Glucose Urine WBC (Auto) Urine Creatinine 12/10/19 12/10/19 12/10/19 04:14 04:14 12:00 WBC 13.3 H RBC 3.34 L Hgb 9.6 L Hct 30.4 L MCHC RDW 15.4 H MCV MCH Lymph % (Auto) [place] % (Auto) [place] # Eos # Lymph # (Auto) [place] # (Auto) Eos # (Auto) Seg Neutrophils % Seg Neuts % (Manual) 75.0 H Baso # (Auto) Lymphocytes % (Manual) 13.0 L Monocytes % (Manual) 8.0 H Eosinophils % (Manual) Basophils % (Manual) 2.0 H Seg Neutrophils # Seg Neutrophils # Man 10.0 H Lymphocytes # (Manual) Monocytes # (Manual) 1.1 H Eosinophils # (Manual) Nucleated RBC % Basophils # (Manual) 0.3 H PT INR APTT Heparin Anti-Xa Level ABG pH POC ABG pO2 ABG pO2 ABG HCO3 ABG O2 Saturation ABG Base Excess POC ABG pCO2 ABG Hemoglobin ABG Oxyhemoglobin ABG Sodium ABG Chloride ABG Glucose Oxyhemoglobin Sodium 147 H Potassium Chloride 108.3 H Carbon Dioxide BUN 21 H Creatinine 0.6 L Glucose 104 H POC Glucose 133 H Lactic Acid Calcium Phosphorus Magnesium AST ALT Lactate Dehydrogenase Total Bilirubin Direct Bilirubin CK-MB (CK-2) C-Reactive Protein NT-Pro-B Natriuret Pep Total Protein Albumin Arterial Blood Glucose Urine WBC (Auto) Urine Creatinine 12/10/19 12/10/19 12/11/19 18:44 21:20 00:08 WBC 14.9 H RBC 3.36 L Hgb 9.6 L Hct 30.5 L MCHC RDW 15.4 H MCV MCH Lymph % (Auto) [place] % (Auto) [place] # Eos # Lymph # (Auto) [place] # (Auto) Eos # (Auto) Seg Neutrophils % Seg Neuts % (Manual) Baso # (Auto) Lymphocytes % (Manual) Monocytes % (Manual) Eosinophils % (Manual) Basophils % (Manual) Seg Neutrophils # Seg Neutrophils # Man Lymphocytes # (Manual) Monocytes # (Manual) Eosinophils # (Manual) Nucleated RBC % Basophils # (Manual) PT INR APTT Heparin Anti-Xa Level ABG pH POC ABG pO2 ABG pO2 ABG HCO3 ABG O2 Saturation ABG Base Excess POC ABG pCO2 ABG Hemoglobin ABG Oxyhemoglobin ABG Sodium ABG Chloride ABG Glucose Oxyhemoglobin Sodium Potassium Chloride Carbon Dioxide BUN Creatinine Glucose POC Glucose 119 H 134 H Lactic Acid Calcium Phosphorus Magnesium AST ALT Lactate Dehydrogenase Total Bilirubin Direct Bilirubin CK-MB (CK-2) C-Reactive Protein NT-Pro-B Natriuret Pep Total Protein Albumin Arterial Blood Glucose Urine WBC (Auto) Urine Creatinine 12/11/19 12/11/19 12/11/19 03:54 07:28 08:36 WBC 11.9 H RBC 3.25 L Hgb 9.6 L Hct 29.2 L MCHC RDW 15.7 H MCV MCH Lymph % (Auto) [place] % (Auto) [place] # Eos # Lymph # (Auto) [place] # (Auto) Eos # (Auto) Seg Neutrophils % Seg Neuts % (Manual) Baso # (Auto) Lymphocytes % (Manual) Monocytes % (Manual) Eosinophils % (Manual) Basophils % (Manual) Seg Neutrophils # Seg Neutrophils # Man Lymphocytes # (Manual) Monocytes # (Manual) Eosinophils # (Manual) Nucleated RBC % Basophils # (Manual) PT INR APTT Heparin Anti-Xa Level 0.10 L 0.16 L ABG pH POC ABG pO2 ABG pO2 ABG HCO3 ABG O2 Saturation ABG Base Excess POC ABG pCO2 ABG Hemoglobin ABG Oxyhemoglobin ABG Sodium ABG Chloride ABG Glucose Oxyhemoglobin Sodium Potassium Chloride Carbon Dioxide BUN Creatinine Glucose POC Glucose Lactic Acid Calcium Phosphorus Magnesium AST ALT Lactate Dehydrogenase Total Bilirubin Direct Bilirubin CK-MB (CK-2) C-Reactive Protein NT-Pro-B Natriuret Pep Total Protein Albumin Arterial Blood Glucose Urine WBC (Auto) Urine Creatinine 12/11/19 12/11/19 12/11/19 08:36 11:45 17:15 WBC RBC Hgb Hct MCHC RDW MCV MCH Lymph % (Auto) [place] % (Auto) [place] # Eos # Lymph # (Auto) [place] # (Auto) Eos # (Auto) Seg Neutrophils % Seg Neuts % (Manual) Baso # (Auto) Lymphocytes % (Manual) Monocytes % (Manual) Eosinophils % (Manual) Basophils % (Manual) Seg Neutrophils # Seg Neutrophils # Man Lymphocytes # (Manual) Monocytes # (Manual) Eosinophils # (Manual) Nucleated RBC % Basophils # (Manual) PT INR APTT Heparin Anti-Xa Level ABG pH POC ABG pO2 ABG pO2 ABG HCO3 ABG O2 Saturation ABG Base Excess POC ABG pCO2 ABG Hemoglobin ABG Oxyhemoglobin ABG Sodium ABG Chloride ABG Glucose Oxyhemoglobin Sodium Potassium Chloride Carbon Dioxide BUN Creatinine 0.5 L Glucose 128 H POC Glucose 136 H 109 H Lactic Acid Calcium Phosphorus Magnesium AST ALT Lactate Dehydrogenase Total Bilirubin Direct Bilirubin CK-MB (CK-2) C-Reactive Protein NT-Pro-B Natriuret Pep Total Protein Albumin Arterial Blood Glucose Urine WBC (Auto) Urine Creatinine 0912/12/19 12/12/19 00:03 05:53 05:53 WBC RBC Hgb 8.8 L Hct 27.6 L MCHC RDW MCV MCH Lymph % (Auto) [place] % (Auto) [place] # Eos # Lymph # (Auto) [place] # (Auto) Eos # (Auto) Seg Neutrophils % Seg Neuts % (Manual) Baso # (Auto) Lymphocytes % (Manual) Monocytes % (Manual) Eosinophils % (Manual) Basophils % (Manual) Seg Neutrophils # Seg Neutrophils # Man Lymphocytes # (Manual) Monocytes # (Manual) Eosinophils # (Manual) Nucleated RBC % Basophils # (Manual) PT INR APTT Heparin Anti-Xa Level 0.22 L ABG pH POC ABG pO2 ABG pO2 ABG HCO3 ABG O2 Saturation ABG Base Excess POC ABG pCO2 ABG Hemoglobin ABG Oxyhemoglobin ABG Sodium ABG Chloride ABG Glucose Oxyhemoglobin Sodium Potassium Chloride Carbon Dioxide BUN Creatinine Glucose POC Glucose 116 H Lactic Acid Calcium Phosphorus Magnesium AST ALT Lactate Dehydrogenase Total Bilirubin Direct Bilirubin CK-MB (CK-2) C-Reactive Protein NT-Pro-B Natriuret Pep Total Protein Albumin Arterial Blood Glucose Urine WBC (Auto) Urine Creatinine 12/12/19 12/12/19 12/12/19 09:38 12:18 17:44 WBC RBC Hgb Hct MCHC RDW MCV MCH Lymph % (Auto) [place] % (Auto) [place] # Eos # Lymph # (Auto) [place] # (Auto) Eos # (Auto) Seg Neutrophils % Seg Neuts % (Manual) Baso # (Auto) Lymphocytes % (Manual) Monocytes % (Manual) Eosinophils % (Manual) Basophils % (Manual) Seg Neutrophils # Seg Neutrophils # Man Lymphocytes # (Manual) Monocytes # (Manual) Eosinophils # (Manual) Nucleated RBC % Basophils # (Manual) PT INR APTT Heparin Anti-Xa Level ABG pH POC ABG pO2 ABG pO2 ABG HCO3 ABG O2 Saturation ABG Base Excess POC ABG pCO2 ABG Hemoglobin ABG Oxyhemoglobin ABG Sodium ABG Chloride ABG Glucose Oxyhemoglobin Sodium Potassium Chloride Carbon Dioxide BUN Creatinine Glucose POC Glucose 115 H 146 H 146 H Lactic Acid Calcium Phosphorus Magnesium AST ALT Lactate Dehydrogenase Total Bilirubin Direct Bilirubin CK-MB (CK-2) C-Reactive Protein NT-Pro-B Natriuret Pep Total Protein Albumin Arterial Blood Glucose Urine WBC (Auto) Urine Creatinine 12/12/19 12/13/19 12/13/19 23:33 05:32 05:32 WBC 13.1 H RBC 3.27 L Hgb 9.5 L Hct 29.3 L MCHC RDW 15.6 H MCV MCH Lymph % (Auto) [place] % (Auto) [place] # Eos # Lymph # (Auto) [place] # (Auto) Eos # (Auto) Seg Neutrophils % Seg Neuts % (Manual) 74.0 H Baso # (Auto) Lymphocytes % (Manual) 8.0 L Monocytes % (Manual) 9.0 H Eosinophils % (Manual) 5.0 H Basophils % (Manual) Seg Neutrophils # Seg Neutrophils # Man 9.7 H Lymphocytes # (Manual) 1.0 L Monocytes # (Manual) 1.2 H Eosinophils # (Manual) 0.7 H Nucleated RBC % Basophils # (Manual) PT INR APTT Heparin Anti-Xa Level 0.20 L ABG pH POC ABG pO2 ABG pO2 ABG HCO3 ABG O2 Saturation ABG Base Excess POC ABG pCO2 ABG Hemoglobin ABG Oxyhemoglobin ABG Sodium ABG Chloride ABG Glucose Oxyhemoglobin Sodium Potassium Chloride Carbon Dioxide BUN Creatinine Glucose POC Glucose 126 H Lactic Acid Calcium Phosphorus Magnesium AST ALT Lactate Dehydrogenase Total Bilirubin Direct Bilirubin CK-MB (CK-2) C-Reactive Protein NT-Pro-B Natriuret Pep Total Protein Albumin Arterial Blood Glucose Urine WBC (Auto) Urine Creatinine 12/13/19 12/13/19 12/13/19 05:32 05:46 11:57 WBC RBC Hgb Hct MCHC RDW MCV MCH Lymph % (Auto) [place] % (Auto) [place] # Eos # Lymph # (Auto) [place] # (Auto) Eos # (Auto) Seg Neutrophils % Seg Neuts % (Manual) Baso # (Auto) Lymphocytes % (Manual) Monocytes % (Manual) Eosinophils % (Manual) Basophils % (Manual) Seg Neutrophils # Seg Neutrophils # Man Lymphocytes # (Manual) Monocytes # (Manual) Eosinophils # (Manual) Nucleated RBC % Basophils # (Manual) PT INR APTT Heparin Anti-Xa Level ABG pH POC ABG pO2 ABG pO2 ABG HCO3 ABG O2 Saturation ABG Base Excess POC ABG pCO2 ABG Hemoglobin ABG Oxyhemoglobin ABG Sodium ABG Chloride ABG Glucose Oxyhemoglobin Sodium Potassium Chloride Carbon Dioxide 31 H BUN Creatinine 0.6 L Glucose 114 H POC Glucose 118 H 133 H Lactic Acid Calcium Phosphorus Magnesium AST ALT Lactate Dehydrogenase Total Bilirubin Direct Bilirubin CK-MB (CK-2) C-Reactive Protein NT-Pro-B Natriuret Pep Total Protein Albumin Arterial Blood Glucose Urine WBC (Auto) Urine Creatinine 12/13/19 12/13/19 12/14/19 17:44 23:46 05:32 WBC RBC Hgb Hct MCHC RDW MCV MCH Lymph % (Auto) [place] % (Auto) [place] # Eos # Lymph # (Auto) [place] # (Auto) Eos # (Auto) Seg Neutrophils % Seg Neuts % (Manual) Baso # (Auto) Lymphocytes % (Manual) Monocytes % (Manual) Eosinophils % (Manual) Basophils % (Manual) Seg Neutrophils # Seg Neutrophils # Man Lymphocytes # (Manual) Monocytes # (Manual) Eosinophils # (Manual) Nucleated RBC % Basophils # (Manual) PT INR APTT Heparin Anti-Xa Level ABG pH POC ABG pO2 ABG pO2 ABG HCO3 ABG O2 Saturation ABG Base Excess POC ABG pCO2 ABG Hemoglobin ABG Oxyhemoglobin ABG Sodium ABG Chloride ABG Glucose Oxyhemoglobin Sodium Potassium Chloride Carbon Dioxide BUN Creatinine Glucose POC Glucose 161 H 126 H 139 H Lactic Acid Calcium Phosphorus Magnesium AST ALT Lactate Dehydrogenase Total Bilirubin Direct Bilirubin CK-MB (CK-2) C-Reactive Protein NT-Pro-B Natriuret Pep Total Protein Albumin Arterial Blood Glucose Urine WBC (Auto) Urine Creatinine 12/14/19 12/14/19 12/14/19 06:03 06:03 09:37 WBC RBC Hgb 9.6 L Hct 30.4 L MCHC RDW MCV MCH Lymph % (Auto) [place] % (Auto) [place] # Eos # Lymph # (Auto) [place] # (Auto) Eos # (Auto) Seg Neutrophils % Seg Neuts % (Manual) Baso # (Auto) Lymphocytes % (Manual) Monocytes % (Manual) Eosinophils % (Manual) Basophils % (Manual) Seg Neutrophils # Seg Neutrophils # Man Lymphocytes # (Manual) Monocytes # (Manual) Eosinophils # (Manual) Nucleated RBC % Basophils # (Manual) PT INR APTT Heparin Anti-Xa Level 0.24 L ABG pH POC ABG pO2 ABG pO2 ABG HCO3 ABG O2 Saturation ABG Base Excess POC ABG pCO2 ABG Hemoglobin ABG Oxyhemoglobin ABG Sodium ABG Chloride ABG Glucose Oxyhemoglobin Sodium Potassium Chloride Carbon Dioxide BUN Creatinine 0.6 L Glucose 162 H POC Glucose Lactic Acid Calcium Phosphorus Magnesium AST 71 H ALT 118 H Lactate Dehydrogenase Total Bilirubin Direct Bilirubin CK-MB (CK-2) C-Reactive Protein NT-Pro-B Natriuret Pep Total Protein 6.2 L Albumin 2.3 L Arterial Blood Glucose Urine WBC (Auto) Urine Creatinine 12/14/19 12/14/19 12/15/19 12:06 18:18 00:19 WBC RBC Hgb Hct MCHC RDW MCV MCH Lymph % (Auto) [place] % (Auto) [place] # Eos # Lymph # (Auto) [place] # (Auto) Eos # (Auto) Seg Neutrophils % Seg Neuts % (Manual) Baso # (Auto) Lymphocytes % (Manual) Monocytes % (Manual) Eosinophils % (Manual) Basophils % (Manual) Seg Neutrophils # Seg Neutrophils # Man Lymphocytes # (Manual) Monocytes # (Manual) Eosinophils # (Manual) Nucleated RBC % Basophils # (Manual) PT INR APTT Heparin Anti-Xa Level ABG pH POC ABG pO2 ABG pO2 ABG HCO3 ABG O2 Saturation ABG Base Excess POC ABG pCO2 ABG Hemoglobin ABG Oxyhemoglobin ABG Sodium ABG Chloride ABG Glucose Oxyhemoglobin Sodium Potassium Chloride Carbon Dioxide BUN Creatinine Glucose POC Glucose 147 H 166 H 123 H Lactic Acid Calcium Phosphorus Magnesium AST ALT Lactate Dehydrogenase Total Bilirubin Direct Bilirubin CK-MB (CK-2) C-Reactive Protein NT-Pro-B Natriuret Pep Total Protein Albumin Arterial Blood Glucose Urine WBC (Auto) Urine Creatinine 12/15/19 12/15/19 12/15/19 05:28 05:29 05:29 WBC 14.9 H RBC 3.19 L Hgb 9.1 L Hct 28.7 L MCHC RDW 16.0 H MCV MCH Lymph % (Auto) [place] % (Auto) [place] # Eos # Lymph # (Auto) [place] # (Auto) Eos # (Auto) Seg Neutrophils % Seg Neuts % (Manual) Baso # (Auto) Lymphocytes % (Manual) Monocytes % (Manual) Eosinophils % (Manual) Basophils % (Manual) Seg Neutrophils # Seg Neutrophils # Man Lymphocytes # (Manual) Monocytes # (Manual) Eosinophils # (Manual) Nucleated RBC % Basophils # (Manual) PT INR APTT Heparin Anti-Xa Level 0.19 L ABG pH POC ABG pO2 ABG pO2 ABG HCO3 ABG O2 Saturation ABG Base Excess POC ABG pCO2 ABG Hemoglobin ABG Oxyhemoglobin ABG Sodium ABG Chloride ABG Glucose Oxyhemoglobin Sodium Potassium Chloride Carbon Dioxide BUN Creatinine 0.6 L Glucose 110 H POC Glucose Lactic Acid Calcium Phosphorus Magnesium AST ALT Lactate Dehydrogenase Total Bilirubin Direct Bilirubin CK-MB (CK-2) C-Reactive Protein NT-Pro-B Natriuret Pep Total Protein Albumin Arterial Blood Glucose Urine WBC (Auto) Urine Creatinine 12/15/19 12/15/19 12/15/19 05:53 11:50 17:26 WBC RBC Hgb Hct MCHC RDW MCV MCH Lymph % (Auto) [place] % (Auto) [place] # Eos # Lymph # (Auto) [place] # (Auto) Eos # (Auto) Seg Neutrophils % Seg Neuts % (Manual) Baso # (Auto) Lymphocytes % (Manual) Monocytes % (Manual) Eosinophils % (Manual) Basophils % (Manual) Seg Neutrophils # Seg Neutrophils # Man Lymphocytes # (Manual) Monocytes # (Manual) Eosinophils # (Manual) Nucleated RBC % Basophils # (Manual) PT INR APTT Heparin Anti-Xa Level ABG pH POC ABG pO2 ABG pO2 ABG HCO3 ABG O2 Saturation ABG Base Excess POC ABG pCO2 ABG Hemoglobin ABG Oxyhemoglobin ABG Sodium ABG Chloride ABG Glucose Oxyhemoglobin Sodium Potassium Chloride Carbon Dioxide BUN Creatinine Glucose POC Glucose 119 H 132 H 128 H Lactic Acid Calcium Phosphorus Magnesium AST ALT Lactate Dehydrogenase Total Bilirubin Direct Bilirubin CK-MB (CK-2) C-Reactive Protein NT-Pro-B Natriuret Pep Total Protein Albumin Arterial Blood Glucose Urine WBC (Auto) Urine Creatinine 12/15/19 12/16/19 12/16/19 23:11 05:30 05:46 WBC RBC Hgb 8.8 L Hct 27.9 L MCHC RDW MCV MCH Lymph % (Auto) [place] % (Auto) [place] # Eos # Lymph # (Auto) [place] # (Auto) Eos # (Auto) Seg Neutrophils % Seg Neuts % (Manual) Baso # (Auto) Lymphocytes % (Manual) Monocytes % (Manual) Eosinophils % (Manual) Basophils % (Manual) Seg Neutrophils # Seg Neutrophils # Man Lymphocytes # (Manual) Monocytes # (Manual) Eosinophils # (Manual) Nucleated RBC % Basophils # (Manual) PT INR APTT Heparin Anti-Xa Level ABG pH POC ABG pO2 ABG pO2 ABG HCO3 ABG O2 Saturation ABG Base Excess POC ABG pCO2 ABG Hemoglobin ABG Oxyhemoglobin ABG Sodium ABG Chloride ABG Glucose Oxyhemoglobin Sodium Potassium Chloride Carbon Dioxide BUN Creatinine Glucose POC Glucose 150 H 134 H Lactic Acid Calcium Phosphorus Magnesium AST ALT Lactate Dehydrogenase Total Bilirubin Direct Bilirubin CK-MB (CK-2) C-Reactive Protein NT-Pro-B Natriuret Pep Total Protein Albumin Arterial Blood Glucose Urine WBC (Auto) Urine Creatinine 12/16/19 12/16/19 12/16/19 05:46 05:46 11:44 WBC RBC Hgb Hct MCHC RDW MCV MCH Lymph % (Auto) [place] % (Auto) [place] # Eos # Lymph # (Auto) [place] # (Auto) Eos # (Auto) Seg Neutrophils % Seg Neuts % (Manual) Baso # (Auto) Lymphocytes % (Manual) Monocytes % (Manual) Eosinophils % (Manual) Basophils % (Manual) Seg Neutrophils # Seg Neutrophils # Man Lymphocytes # (Manual) Monocytes # (Manual) Eosinophils # (Manual) Nucleated RBC % Basophils # (Manual) PT INR APTT Heparin Anti-Xa Level 0.20 L ABG pH POC ABG pO2 ABG pO2 ABG HCO3 ABG O2 Saturation ABG Base Excess POC ABG pCO2 ABG Hemoglobin ABG Oxyhemoglobin ABG Sodium ABG Chloride ABG Glucose Oxyhemoglobin Sodium Potassium Chloride Carbon Dioxide 31 H BUN Creatinine 0.5 L Glucose 147 H POC Glucose 164 H Lactic Acid Calcium Phosphorus Magnesium AST ALT Lactate Dehydrogenase Total Bilirubin Direct Bilirubin CK-MB (CK-2) C-Reactive Protein NT-Pro-B Natriuret Pep Total Protein Albumin Arterial Blood Glucose Urine WBC (Auto) Urine Creatinine 12/16/19 12/16/19 12/17/19 17:17 23:49 05:30 WBC 13.9 H RBC 3.27 L Hgb 9.4 L Hct 29.2 L MCHC RDW 16.0 H MCV MCH Lymph % (Auto) [place] % (Auto) 8.8 H [place] # Eos # Lymph # (Auto) [place] # (Auto) 1.2 H Eos # (Auto) 0.5 H Seg Neutrophils % 70.5 H Seg Neuts % (Manual) Baso # (Auto) 0.2 H Lymphocytes % (Manual) Monocytes % (Manual) Eosinophils % (Manual) Basophils % (Manual) Seg Neutrophils # 9.8 H Seg Neutrophils # Man Lymphocytes # (Manual) Monocytes # (Manual) Eosinophils # (Manual) Nucleated RBC % Basophils # (Manual) PT INR APTT Heparin Anti-Xa Level ABG pH POC ABG pO2 ABG pO2 ABG HCO3 ABG O2 Saturation ABG Base Excess POC ABG pCO2 ABG Hemoglobin ABG Oxyhemoglobin ABG Sodium ABG Chloride ABG Glucose Oxyhemoglobin Sodium Potassium Chloride Carbon Dioxide BUN Creatinine Glucose POC Glucose 162 H 144 H Lactic Acid Calcium Phosphorus Magnesium AST ALT Lactate Dehydrogenase Total Bilirubin Direct Bilirubin CK-MB (CK-2) C-Reactive Protein NT-Pro-B Natriuret Pep Total Protein Albumin Arterial Blood Glucose Urine WBC (Auto) Urine Creatinine 12/17/19 12/17/19 12/17/19 05:30 06:06 11:50 WBC RBC Hgb Hct MCHC RDW MCV MCH Lymph % (Auto) [place] % (Auto) [place] # Eos # Lymph # (Auto) [place] # (Auto) Eos # (Auto) Seg Neutrophils % Seg Neuts % (Manual) Baso # (Auto) Lymphocytes % (Manual) Monocytes % (Manual) Eosinophils % (Manual) Basophils % (Manual) Seg Neutrophils # Seg Neutrophils # Man Lymphocytes # (Manual) Monocytes # (Manual) Eosinophils # (Manual) Nucleated RBC % Basophils # (Manual) PT INR APTT Heparin Anti-Xa Level ABG pH POC ABG pO2 ABG pO2 ABG HCO3 ABG O2 Saturation ABG Base Excess POC ABG pCO2 ABG Hemoglobin ABG Oxyhemoglobin ABG Sodium ABG Chloride ABG Glucose Oxyhemoglobin Sodium Potassium Chloride 97.4 L Carbon Dioxide 32 H BUN Creatinine 0.5 L Glucose 135 H POC Glucose 151 H 140 H Lactic Acid Calcium Phosphorus Magnesium AST ALT Lactate Dehydrogenase Total Bilirubin Direct Bilirubin CK-MB (CK-2) C-Reactive Protein NT-Pro-B Natriuret Pep Total Protein Albumin Arterial Blood Glucose Urine WBC (Auto) Urine Creatinine 12/17/19 12/17/19 12/18/19 17:50 23:46 05:17 WBC RBC Hgb 8.8 L Hct 28.0 L MCHC RDW MCV MCH Lymph % (Auto) [place] % (Auto) [place] # Eos # Lymph # (Auto) [place] # (Auto) Eos # (Auto) Seg Neutrophils % Seg Neuts % (Manual) Baso # (Auto) Lymphocytes % (Manual) Monocytes % (Manual) Eosinophils % (Manual) Basophils % (Manual) Seg Neutrophils # Seg Neutrophils # Man Lymphocytes # (Manual) Monocytes # (Manual) Eosinophils # (Manual) Nucleated RBC % Basophils # (Manual) PT INR APTT Heparin Anti-Xa Level ABG pH POC ABG pO2 ABG pO2 ABG HCO3 ABG O2 Saturation ABG Base Excess POC ABG pCO2 ABG Hemoglobin ABG Oxyhemoglobin ABG Sodium ABG Chloride ABG Glucose Oxyhemoglobin Sodium Potassium Chloride Carbon Dioxide BUN Creatinine Glucose POC Glucose 158 H 150 H Lactic Acid Calcium Phosphorus Magnesium AST ALT Lactate Dehydrogenase Total Bilirubin Direct Bilirubin CK-MB (CK-2) C-Reactive Protein NT-Pro-B Natriuret Pep Total Protein Albumin Arterial Blood Glucose Urine WBC (Auto) Urine Creatinine 12/18/19 12/18/19 12/18/19 05:17 05:49 11:12 WBC RBC Hgb Hct MCHC RDW MCV MCH Lymph % (Auto) [place] % (Auto) [place] # Eos # Lymph # (Auto) [place] # (Auto) Eos # (Auto) Seg Neutrophils % Seg Neuts % (Manual) Baso # (Auto) Lymphocytes % (Manual) Monocytes % (Manual) Eosinophils % (Manual) Basophils % (Manual) Seg Neutrophils # Seg Neutrophils # Man Lymphocytes # (Manual) Monocytes # (Manual) Eosinophils # (Manual) Nucleated RBC % Basophils # (Manual) PT INR APTT Heparin Anti-Xa Level 0.16 L ABG pH POC ABG pO2 ABG pO2 ABG HCO3 ABG O2 Saturation ABG Base Excess POC ABG pCO2 ABG Hemoglobin ABG Oxyhemoglobin ABG Sodium ABG Chloride ABG Glucose Oxyhemoglobin Sodium Potassium Chloride Carbon Dioxide BUN Creatinine Glucose POC Glucose 127 H 191 H Lactic Acid Calcium Phosphorus Magnesium AST ALT Lactate Dehydrogenase Total Bilirubin Direct Bilirubin CK-MB (CK-2) C-Reactive Protein NT-Pro-B Natriuret Pep Total Protein Albumin Arterial Blood Glucose Urine WBC (Auto) Urine Creatinine 12/18/19 12/18/19 12/19/19 17:03 20:16 00:08 WBC RBC Hgb Hct MCHC RDW MCV MCH Lymph % (Auto) [place] % (Auto) [place] # Eos # Lymph # (Auto) [place] # (Auto) Eos # (Auto) Seg Neutrophils % Seg Neuts % (Manual) Baso # (Auto) Lymphocytes % (Manual) Monocytes % (Manual) Eosinophils % (Manual) Basophils % (Manual) Seg Neutrophils # Seg Neutrophils # Man Lymphocytes # (Manual) Monocytes # (Manual) Eosinophils # (Manual) Nucleated RBC % Basophils # (Manual) PT INR APTT Heparin Anti-Xa Level ABG pH POC ABG pO2 ABG pO2 ABG HCO3 ABG O2 Saturation ABG Base Excess POC ABG pCO2 ABG Hemoglobin ABG Oxyhemoglobin ABG Sodium ABG Chloride ABG Glucose Oxyhemoglobin Sodium Potassium Chloride Carbon Dioxide BUN Creatinine Glucose POC Glucose 133 H 128 H 129 H Lactic Acid Calcium Phosphorus Magnesium AST ALT Lactate Dehydrogenase Total Bilirubin Direct Bilirubin CK-MB (CK-2) C-Reactive Protein NT-Pro-B Natriuret Pep Total Protein Albumin Arterial Blood Glucose Urine WBC (Auto) Urine Creatinine 12/19/19 12/19/19 12/19/19 04:45 04:45 05:35 WBC RBC Hgb Hct MCHC RDW MCV MCH Lymph % (Auto) [place] % (Auto) [place] # Eos # Lymph # (Auto) [place] # (Auto) Eos # (Auto) Seg Neutrophils % Seg Neuts % (Manual) Baso # (Auto) Lymphocytes % (Manual) Monocytes % (Manual) Eosinophils % (Manual) Basophils % (Manual) Seg Neutrophils # Seg Neutrophils # Man Lymphocytes # (Manual) Monocytes # (Manual) Eosinophils # (Manual) Nucleated RBC % Basophils # (Manual) PT INR APTT Heparin Anti-Xa Level 0.17 L ABG pH POC ABG pO2 ABG pO2 ABG HCO3 ABG O2 Saturation ABG Base Excess POC ABG pCO2 ABG Hemoglobin ABG Oxyhemoglobin ABG Sodium ABG Chloride ABG Glucose Oxyhemoglobin Sodium Potassium Chloride Carbon Dioxide BUN Creatinine Glucose POC Glucose 120 H Lactic Acid Calcium Phosphorus Magnesium AST ALT Lactate Dehydrogenase 228 H Total Bilirubin Direct Bilirubin CK-MB (CK-2) C-Reactive Protein NT-Pro-B Natriuret Pep Total Protein Albumin Arterial Blood Glucose Urine WBC (Auto) Urine Creatinine 12/19/19 12/19/19 12/19/19 09:20 11:32 11:32 WBC 14.6 H RBC 3.08 L Hgb 9.0 L Hct 26.8 L MCHC RDW 15.9 H MCV MCH Lymph % (Auto) [place] % (Auto) [place] # Eos # Lymph # (Auto) [place] # (Auto) Eos # (Auto) Seg Neutrophils % Seg Neuts % (Manual) 82.0 H Baso # (Auto) Lymphocytes % (Manual) 10.0 L Monocytes % (Manual) Eosinophils % (Manual) Basophils % (Manual) Seg Neutrophils # Seg Neutrophils # Man 12.0 H Lymphocytes # (Manual) Monocytes # (Manual) 0.9 H Eosinophils # (Manual) Nucleated RBC % 1.0 H Basophils # (Manual) PT INR APTT Heparin Anti-Xa Level ABG pH 7.451 H POC ABG pO2 ABG pO2 62.6 L ABG HCO3 33.2 H ABG O2 Saturation 93.8 L ABG Base Excess 8.3 H POC ABG pCO2 ABG Hemoglobin 8.3 L ABG Oxyhemoglobin ABG Sodium ABG Chloride ABG Glucose Oxyhemoglobin 91.9 L Sodium Potassium Chloride 95.0 L Carbon Dioxide 33 H BUN 22 H Creatinine 0.6 L Glucose 150 H POC Glucose Lactic Acid Calcium Phosphorus Magnesium AST ALT Lactate Dehydrogenase Total Bilirubin Direct Bilirubin CK-MB (CK-2) C-Reactive Protein NT-Pro-B Natriuret Pep Total Protein 6.2 L Albumin 2.4 L Arterial Blood Glucose Urine WBC (Auto) Urine Creatinine 12/19/19 12/19/19 12/20/19 11:56 18:17 00:09 WBC RBC Hgb Hct MCHC RDW MCV MCH Lymph % (Auto) [place] % (Auto) [place] # Eos # Lymph # (Auto) [place] # (Auto) Eos # (Auto) Seg Neutrophils % Seg Neuts % (Manual) Baso # (Auto) Lymphocytes % (Manual) Monocytes % (Manual) Eosinophils % (Manual) Basophils % (Manual) Seg Neutrophils # Seg Neutrophils # Man Lymphocytes # (Manual) Monocytes # (Manual) Eosinophils # (Manual) Nucleated RBC % Basophils # (Manual) PT INR APTT Heparin Anti-Xa Level ABG pH POC ABG pO2 ABG pO2 ABG HCO3 ABG O2 Saturation ABG Base Excess POC ABG pCO2 ABG Hemoglobin ABG Oxyhemoglobin ABG Sodium ABG Chloride ABG Glucose Oxyhemoglobin Sodium Potassium Chloride Carbon Dioxide BUN Creatinine Glucose POC Glucose 156 H 156 H 155 H Lactic Acid Calcium Phosphorus Magnesium AST ALT Lactate Dehydrogenase Total Bilirubin Direct Bilirubin CK-MB (CK-2) C-Reactive Protein NT-Pro-B Natriuret Pep Total Protein Albumin Arterial Blood Glucose Urine WBC (Auto) Urine Creatinine 12/20/19 12/20/19 12/20/19 05:26 06:02 18:17 WBC RBC Hgb Hct MCHC RDW MCV MCH Lymph % (Auto) [place] % (Auto) [place] # Eos # Lymph # (Auto) [place] # (Auto) Eos # (Auto) Seg Neutrophils % Seg Neuts % (Manual) Baso # (Auto) Lymphocytes % (Manual) Monocytes % (Manual) Eosinophils % (Manual) Basophils % (Manual) Seg Neutrophils # Seg Neutrophils # Man Lymphocytes # (Manual) Monocytes # (Manual) Eosinophils # (Manual) Nucleated RBC % Basophils # (Manual) PT INR APTT Heparin Anti-Xa Level 0.19 L ABG pH POC ABG pO2 ABG pO2 ABG HCO3 ABG O2 Saturation ABG Base Excess POC ABG pCO2 ABG Hemoglobin ABG Oxyhemoglobin ABG Sodium ABG Chloride ABG Glucose Oxyhemoglobin Sodium Potassium Chloride Carbon Dioxide BUN Creatinine Glucose POC Glucose 137 H 128 H Lactic Acid Calcium Phosphorus Magnesium AST ALT Lactate Dehydrogenase Total Bilirubin Direct Bilirubin CK-MB (CK-2) C-Reactive Protein NT-Pro-B Natriuret Pep Total Protein Albumin Arterial Blood Glucose Urine WBC (Auto) Urine Creatinine 12/20/19 12/21/19 12/21/19 23:34 05:31 05:31 WBC 12.7 H RBC 3.09 L Hgb 8.9 L Hct 27.4 L MCHC RDW 15.8 H MCV MCH Lymph % (Auto) 12.1 L [place] % (Auto) 7.8 H [place] # Eos # Lymph # (Auto) [place] # (Auto) 1.0 H Eos # (Auto) Seg Neutrophils % 77.1 H Seg Neuts % (Manual) Baso # (Auto) Lymphocytes % (Manual) Monocytes % (Manual) Eosinophils % (Manual) Basophils % (Manual) Seg Neutrophils # 9.8 H Seg Neutrophils # Man Lymphocytes # (Manual) Monocytes # (Manual) Eosinophils # (Manual) Nucleated RBC % Basophils # (Manual) PT INR APTT Heparin Anti-Xa Level ABG pH POC ABG pO2 ABG pO2 ABG HCO3 ABG O2 Saturation ABG Base Excess POC ABG pCO2 ABG Hemoglobin ABG Oxyhemoglobin ABG Sodium ABG Chloride ABG Glucose Oxyhemoglobin Sodium Potassium Chloride 96.9 L Carbon Dioxide 37 H BUN 27 H Creatinine 0.7 L Glucose 140 H POC Glucose 145 H Lactic Acid Calcium Phosphorus Magnesium AST ALT Lactate Dehydrogenase Total Bilirubin Direct Bilirubin CK-MB (CK-2) C-Reactive Protein NT-Pro-B Natriuret Pep Total Protein Albumin Arterial Blood Glucose Urine WBC (Auto) Urine Creatinine 12/21/19 12/21/19 12/21/19 05:38 10:13 11:51 WBC RBC Hgb Hct MCHC RDW MCV MCH Lymph % (Auto) [place] % (Auto) [place] # Eos # Lymph # (Auto) [place] # (Auto) Eos # (Auto) Seg Neutrophils % Seg Neuts % (Manual) Baso # (Auto) Lymphocytes % (Manual) Monocytes % (Manual) Eosinophils % (Manual) Basophils % (Manual) Seg Neutrophils # Seg Neutrophils # Man Lymphocytes # (Manual) Monocytes # (Manual) Eosinophils # (Manual) Nucleated RBC % Basophils # (Manual) PT INR APTT 23.9 L Heparin Anti-Xa Level < 0.10 L ABG pH POC ABG pO2 ABG pO2 ABG HCO3 ABG O2 Saturation ABG Base Excess POC ABG pCO2 ABG Hemoglobin ABG Oxyhemoglobin ABG Sodium ABG Chloride ABG Glucose Oxyhemoglobin Sodium Potassium Chloride Carbon Dioxide BUN Creatinine Glucose POC Glucose 151 H 145 H Lactic Acid Calcium Phosphorus Magnesium AST ALT Lactate Dehydrogenase Total Bilirubin Direct Bilirubin CK-MB (CK-2) C-Reactive Protein NT-Pro-B Natriuret Pep Total Protein Albumin Arterial Blood Glucose Urine WBC (Auto) Urine Creatinine 12/21/19 12/22/19 12/22/19 17:16 00:01 01:33 WBC RBC Hgb Hct MCHC RDW MCV MCH Lymph % (Auto) [place] % (Auto) [place] # Eos # Lymph # (Auto) [place] # (Auto) Eos # (Auto) Seg Neutrophils % Seg Neuts % (Manual) Baso # (Auto) Lymphocytes % (Manual) Monocytes % (Manual) Eosinophils % (Manual) Basophils % (Manual) Seg Neutrophils # Seg Neutrophils # Man Lymphocytes # (Manual) Monocytes # (Manual) Eosinophils # (Manual) Nucleated RBC % Basophils # (Manual) PT INR APTT Heparin Anti-Xa Level 0.10 L ABG pH POC ABG pO2 ABG pO2 ABG HCO3 ABG O2 Saturation ABG Base Excess POC ABG pCO2 ABG Hemoglobin ABG Oxyhemoglobin ABG Sodium ABG Chloride ABG Glucose Oxyhemoglobin Sodium Potassium Chloride Carbon Dioxide BUN Creatinine Glucose POC Glucose 167 H 179 H Lactic Acid Calcium Phosphorus Magnesium AST ALT Lactate Dehydrogenase Total Bilirubin Direct Bilirubin CK-MB (CK-2) C-Reactive Protein NT-Pro-B Natriuret Pep Total Protein Albumin Arterial Blood Glucose Urine WBC (Auto) Urine Creatinine 12/22/19 12/22/19 12/22/19 03:22 05:10 05:10 WBC 13.8 H RBC 3.20 L Hgb 8.9 L Hct 28.1 L MCHC RDW 15.9 H MCV MCH Lymph % (Auto) [place] % (Auto) [place] # Eos # Lymph # (Auto) [place] # (Auto) Eos # (Auto) Seg Neutrophils % Seg Neuts % (Manual) Baso # (Auto) Lymphocytes % (Manual) Monocytes % (Manual) Eosinophils % (Manual) Basophils % (Manual) Seg Neutrophils # Seg Neutrophils # Man Lymphocytes # (Manual) Monocytes # (Manual) Eosinophils # (Manual) Nucleated RBC % Basophils # (Manual) PT INR APTT Heparin Anti-Xa Level ABG pH POC ABG pO2 52.3 L ABG pO2 ABG HCO3 ABG O2 Saturation ABG Base Excess POC ABG pCO2 52.9 H ABG Hemoglobin 10.7 L ABG Oxyhemoglobin 84 L ABG Sodium ABG Chloride ABG Glucose Oxyhemoglobin Sodium Potassium Chloride 96.6 L Carbon Dioxide BUN 25 H Creatinine 0.7 L Glucose 129 H POC Glucose Lactic Acid Calcium Phosphorus Magnesium AST ALT Lactate Dehydrogenase Total Bilirubin Direct Bilirubin CK-MB (CK-2) C-Reactive Protein NT-Pro-B Natriuret Pep Total Protein Albumin Arterial Blood Glucose Urine WBC (Auto) Urine Creatinine 12/22/19 12/22/19 12/22/19 05:18 12:32 12:43 WBC RBC Hgb Hct MCHC RDW MCV MCH Lymph % (Auto) [place] % (Auto) [place] # Eos # Lymph # (Auto) [place] # (Auto) Eos # (Auto) Seg Neutrophils % Seg Neuts % (Manual) Baso # (Auto) Lymphocytes % (Manual) Monocytes % (Manual) Eosinophils % (Manual) Basophils % (Manual) Seg Neutrophils # Seg Neutrophils # Man Lymphocytes # (Manual) Monocytes # (Manual) Eosinophils # (Manual) Nucleated RBC % Basophils # (Manual) PT INR APTT Heparin Anti-Xa Level 0.18 L ABG pH POC ABG pO2 ABG pO2 ABG HCO3 ABG O2 Saturation ABG Base Excess POC ABG pCO2 ABG Hemoglobin ABG Oxyhemoglobin ABG Sodium ABG Chloride ABG Glucose Oxyhemoglobin Sodium Potassium Chloride Carbon Dioxide BUN Creatinine Glucose POC Glucose 131 H 208 H Lactic Acid Calcium Phosphorus Magnesium AST ALT Lactate Dehydrogenase Total Bilirubin Direct Bilirubin CK-MB (CK-2) C-Reactive Protein NT-Pro-B Natriuret Pep Total Protein Albumin Arterial Blood Glucose Urine WBC (Auto) Urine Creatinine 12/22/19 12/22/19 12/23/19 17:44 23:20 03:51 WBC 15.2 H RBC 3.43 L Hgb 9.6 L Hct 30.3 L MCHC RDW 15.9 H MCV MCH Lymph % (Auto) [place] % (Auto) [place] # Eos # Lymph # (Auto) [place] # (Auto) Eos # (Auto) Seg Neutrophils % Seg Neuts % (Manual) Baso # (Auto) Lymphocytes % (Manual) Monocytes % (Manual) Eosinophils % (Manual) Basophils % (Manual) Seg Neutrophils # Seg Neutrophils # Man Lymphocytes # (Manual) Monocytes # (Manual) Eosinophils # (Manual) Nucleated RBC % Basophils # (Manual) PT INR APTT Heparin Anti-Xa Level ABG pH POC ABG pO2 ABG pO2 ABG HCO3 ABG O2 Saturation ABG Base Excess POC ABG pCO2 ABG Hemoglobin ABG Oxyhemoglobin ABG Sodium ABG Chloride ABG Glucose Oxyhemoglobin Sodium Potassium Chloride Carbon Dioxide BUN Creatinine Glucose POC Glucose 209 H 119 H Lactic Acid Calcium Phosphorus Magnesium AST ALT Lactate Dehydrogenase Total Bilirubin Direct Bilirubin CK-MB (CK-2) C-Reactive Protein NT-Pro-B Natriuret Pep Total Protein Albumin Arterial Blood Glucose Urine WBC (Auto) Urine Creatinine 12/23/19 12/23/19 12/23/19 03:51 05:31 12:09 WBC RBC Hgb Hct MCHC RDW MCV MCH Lymph % (Auto) [place] % (Auto) [place] # Eos # Lymph # (Auto) [place] # (Auto) Eos # (Auto) Seg Neutrophils % Seg Neuts % (Manual) Baso # (Auto) Lymphocytes % (Manual) Monocytes % (Manual) Eosinophils % (Manual) Basophils % (Manual) Seg Neutrophils # Seg Neutrophils # Man Lymphocytes # (Manual) Monocytes # (Manual) Eosinophils # (Manual) Nucleated RBC % Basophils # (Manual) PT INR APTT Heparin Anti-Xa Level ABG pH POC ABG pO2 ABG pO2 ABG HCO3 ABG O2 Saturation ABG Base Excess POC ABG pCO2 ABG Hemoglobin ABG Oxyhemoglobin ABG Sodium ABG Chloride ABG Glucose Oxyhemoglobin Sodium Potassium Chloride 97.2 L Carbon Dioxide 31 H BUN 23 H Creatinine 0.6 L Glucose 153 H POC Glucose 149 H 144 H Lactic Acid Calcium Phosphorus Magnesium AST ALT Lactate Dehydrogenase Total Bilirubin Direct Bilirubin CK-MB (CK-2) C-Reactive Protein NT-Pro-B Natriuret Pep Total Protein Albumin Arterial Blood Glucose Urine WBC (Auto) Urine Creatinine 12/23/19 12/23/19 12/23/19 15:30 17:49 23:31 WBC RBC Hgb Hct MCHC RDW MCV MCH Lymph % (Auto) [place] % (Auto) [place] # Eos # Lymph # (Auto) [place] # (Auto) Eos # (Auto) Seg Neutrophils % Seg Neuts % (Manual) Baso # (Auto) Lymphocytes % (Manual) Monocytes % (Manual) Eosinophils % (Manual) Basophils % (Manual) Seg Neutrophils # Seg Neutrophils # Man Lymphocytes # (Manual) Monocytes # (Manual) Eosinophils # (Manual) Nucleated RBC % Basophils # (Manual) PT INR APTT Heparin Anti-Xa Level 0.21 L ABG pH POC ABG pO2 ABG pO2 ABG HCO3 ABG O2 Saturation ABG Base Excess POC ABG pCO2 ABG Hemoglobin ABG Oxyhemoglobin ABG Sodium ABG Chloride ABG Glucose Oxyhemoglobin Sodium Potassium Chloride Carbon Dioxide BUN Creatinine Glucose POC Glucose 192 H 151 H Lactic Acid Calcium Phosphorus Magnesium AST ALT Lactate Dehydrogenase Total Bilirubin Direct Bilirubin CK-MB (CK-2) C-Reactive Protein NT-Pro-B Natriuret Pep Total Protein Albumin Arterial Blood Glucose Urine WBC (Auto) Urine Creatinine 12/24/19 12/24/19 12/24/19 05:34 12:13 16:50 WBC RBC Hgb Hct MCHC RDW MCV MCH Lymph % (Auto) [place] % (Auto) [place] # Eos # Lymph # (Auto) [place] # (Auto) Eos # (Auto) Seg Neutrophils % Seg Neuts % (Manual) Baso # (Auto) Lymphocytes % (Manual) Monocytes % (Manual) Eosinophils % (Manual) Basophils % (Manual) Seg Neutrophils # Seg Neutrophils # Man Lymphocytes # (Manual) Monocytes # (Manual) Eosinophils # (Manual) Nucleated RBC % Basophils # (Manual) PT INR APTT Heparin Anti-Xa Level 0.16 L ABG pH POC ABG pO2 ABG pO2 ABG HCO3 ABG O2 Saturation ABG Base Excess POC ABG pCO2 ABG Hemoglobin ABG Oxyhemoglobin ABG Sodium ABG Chloride ABG Glucose Oxyhemoglobin Sodium Potassium Chloride Carbon Dioxide BUN Creatinine Glucose POC Glucose 145 H 124 H Lactic Acid Calcium Phosphorus Magnesium AST ALT Lactate Dehydrogenase Total Bilirubin Direct Bilirubin CK-MB (CK-2) C-Reactive Protein NT-Pro-B Natriuret Pep Total Protein Albumin Arterial Blood Glucose Urine WBC (Auto) Urine Creatinine 12/24/19 12/25/19 12/25/19 17:53 00:14 04:18 WBC 12.9 H RBC 3.30 L Hgb 9.1 L Hct 28.8 L MCHC RDW 16.4 H MCV MCH Lymph % (Auto) [place] % (Auto) 7.8 H [place] # Eos # Lymph # (Auto) [place] # (Auto) 1.0 H Eos # (Auto) Seg Neutrophils % 75.5 H Seg Neuts % (Manual) Baso # (Auto) Lymphocytes % (Manual) Monocytes % (Manual) Eosinophils % (Manual) Basophils % (Manual) Seg Neutrophils # 9.7 H Seg Neutrophils # Man Lymphocytes # (Manual) Monocytes # (Manual) Eosinophils # (Manual) Nucleated RBC % Basophils # (Manual) PT INR APTT Heparin Anti-Xa Level ABG pH POC ABG pO2 ABG pO2 ABG HCO3 ABG O2 Saturation ABG Base Excess POC ABG pCO2 ABG Hemoglobin ABG Oxyhemoglobin ABG Sodium ABG Chloride ABG Glucose Oxyhemoglobin Sodium Potassium Chloride Carbon Dioxide BUN Creatinine Glucose POC Glucose 164 H 148 H Lactic Acid Calcium Phosphorus Magnesium AST ALT Lactate Dehydrogenase Total Bilirubin Direct Bilirubin CK-MB (CK-2) C-Reactive Protein NT-Pro-B Natriuret Pep Total Protein Albumin Arterial Blood Glucose Urine WBC (Auto) Urine Creatinine 12/25/19 12/25/19 12/25/19 04:18 05:38 11:44 WBC RBC Hgb Hct MCHC RDW MCV MCH Lymph % (Auto) [place] % (Auto) [place] # Eos # Lymph # (Auto) [place] # (Auto) Eos # (Auto) Seg Neutrophils % Seg Neuts % (Manual) Baso # (Auto) Lymphocytes % (Manual) Monocytes % (Manual) Eosinophils % (Manual) Basophils % (Manual) Seg Neutrophils # Seg Neutrophils # Man Lymphocytes # (Manual) Monocytes # (Manual) Eosinophils # (Manual) Nucleated RBC % Basophils # (Manual) PT INR APTT Heparin Anti-Xa Level ABG pH POC ABG pO2 ABG pO2 ABG HCO3 ABG O2 Saturation ABG Base Excess POC ABG pCO2 ABG Hemoglobin ABG Oxyhemoglobin ABG Sodium ABG Chloride ABG Glucose Oxyhemoglobin Sodium Potassium Chloride Carbon Dioxide 33 H BUN 27 H Creatinine 0.6 L Glucose 132 H POC Glucose 152 H 166 H Lactic Acid Calcium Phosphorus Magnesium AST ALT Lactate Dehydrogenase Total Bilirubin Direct Bilirubin CK-MB (CK-2) C-Reactive Protein NT-Pro-B Natriuret Pep Total Protein Albumin Arterial Blood Glucose Urine WBC (Auto) Urine Creatinine 12/25/19 12/26/19 12/26/19 18:29 00:17 00:18 WBC RBC Hgb Hct MCHC RDW MCV MCH Lymph % (Auto) [place] % (Auto) [place] # Eos # Lymph # (Auto) [place] # (Auto) Eos # (Auto) Seg Neutrophils % Seg Neuts % (Manual) Baso # (Auto) Lymphocytes % (Manual) Monocytes % (Manual) Eosinophils % (Manual) Basophils % (Manual) Seg Neutrophils # Seg Neutrophils # Man Lymphocytes # (Manual) Monocytes # (Manual) Eosinophils # (Manual) Nucleated RBC % Basophils # (Manual) PT INR APTT Heparin Anti-Xa Level ABG pH POC ABG pO2 ABG pO2 ABG HCO3 ABG O2 Saturation ABG Base Excess POC ABG pCO2 ABG Hemoglobin ABG Oxyhemoglobin ABG Sodium ABG Chloride ABG Glucose Oxyhemoglobin Sodium Potassium Chloride 97.8 L Carbon Dioxide BUN 25 H Creatinine 0.6 L Glucose 140 H POC Glucose 194 H 151 H Lactic Acid Calcium Phosphorus Magnesium AST ALT Lactate Dehydrogenase Total Bilirubin Direct Bilirubin CK-MB (CK-2) C-Reactive Protein NT-Pro-B Natriuret Pep Total Protein Albumin Arterial Blood Glucose Urine WBC (Auto) Urine Creatinine 12/26/19 12/26/19 12/26/19 05:36 11:41 17:50 WBC RBC Hgb Hct MCHC RDW MCV MCH Lymph % (Auto) [place] % (Auto) [place] # Eos # Lymph # (Auto) [place] # (Auto) Eos # (Auto) Seg Neutrophils % Seg Neuts % (Manual) Baso # (Auto) Lymphocytes % (Manual) Monocytes % (Manual) Eosinophils % (Manual) Basophils % (Manual) Seg Neutrophils # Seg Neutrophils # Man Lymphocytes # (Manual) Monocytes # (Manual) Eosinophils # (Manual) Nucleated RBC % Basophils # (Manual) PT INR APTT Heparin Anti-Xa Level ABG pH POC ABG pO2 ABG pO2 ABG HCO3 ABG O2 Saturation ABG Base Excess POC ABG pCO2 ABG Hemoglobin ABG Oxyhemoglobin ABG Sodium ABG Chloride ABG Glucose Oxyhemoglobin Sodium Potassium Chloride Carbon Dioxide BUN Creatinine Glucose POC Glucose 156 H 148 H 139 H Lactic Acid Calcium Phosphorus Magnesium AST ALT Lactate Dehydrogenase Total Bilirubin Direct Bilirubin CK-MB (CK-2) C-Reactive Protein NT-Pro-B Natriuret Pep Total Protein Albumin Arterial Blood Glucose Urine WBC (Auto) Urine Creatinine 12/26/19 12/27/19 12/27/19 23:19 05:34 12:02 WBC RBC Hgb Hct MCHC RDW MCV MCH Lymph % (Auto) [place] % (Auto) [place] # Eos # Lymph # (Auto) [place] # (Auto) Eos # (Auto) Seg Neutrophils % Seg Neuts % (Manual) Baso # (Auto) Lymphocytes % (Manual) Monocytes % (Manual) Eosinophils % (Manual) Basophils % (Manual) Seg Neutrophils # Seg Neutrophils # Man Lymphocytes # (Manual) Monocytes # (Manual) Eosinophils # (Manual) Nucleated RBC % Basophils # (Manual) PT INR APTT Heparin Anti-Xa Level ABG pH POC ABG pO2 ABG pO2 ABG HCO3 ABG O2 Saturation ABG Base Excess POC ABG pCO2 ABG Hemoglobin ABG Oxyhemoglobin ABG Sodium ABG Chloride ABG Glucose Oxyhemoglobin Sodium Potassium Chloride Carbon Dioxide BUN Creatinine Glucose POC Glucose 161 H 145 H 157 H Lactic Acid Calcium Phosphorus Magnesium AST ALT Lactate Dehydrogenase Total Bilirubin Direct Bilirubin CK-MB (CK-2) C-Reactive Protein NT-Pro-B Natriuret Pep Total Protein Albumin Arterial Blood Glucose Urine WBC (Auto) Urine Creatinine 12/27/19 12/27/19 12/27/19 17:35 20:11 23:00 WBC RBC Hgb Hct MCHC RDW MCV MCH Lymph % (Auto) [place] % (Auto) [place] # Eos # Lymph # (Auto) [place] # (Auto) Eos # (Auto) Seg Neutrophils % Seg Neuts % (Manual) Baso # (Auto) Lymphocytes % (Manual) Monocytes % (Manual) Eosinophils % (Manual) Basophils % (Manual) Seg Neutrophils # Seg Neutrophils # Man Lymphocytes # (Manual) Monocytes # (Manual) Eosinophils # (Manual) Nucleated RBC % Basophils # (Manual) PT INR APTT Heparin Anti-Xa Level 0.19 L ABG pH POC ABG pO2 ABG pO2 ABG HCO3 ABG O2 Saturation ABG Base Excess POC ABG pCO2 ABG Hemoglobin ABG Oxyhemoglobin ABG Sodium ABG Chloride ABG Glucose Oxyhemoglobin Sodium Potassium Chloride Carbon Dioxide BUN Creatinine Glucose POC Glucose 158 H 155 H Lactic Acid Calcium Phosphorus Magnesium AST ALT Lactate Dehydrogenase Total Bilirubin Direct Bilirubin CK-MB (CK-2) C-Reactive Protein NT-Pro-B Natriuret Pep Total Protein Albumin Arterial Blood Glucose Urine WBC (Auto) Urine Creatinine 12/27/19 12/28/19 12/28/19 23:45 02:41 02:41 WBC 13.0 H RBC 3.48 L Hgb 9.5 L Hct 30.6 L MCHC 31 L RDW 16.6 H MCV MCH 27 L Lymph % (Auto) 13.0 L [place] % (Auto) 8.0 H [place] # Eos # Lymph # (Auto) [place] # (Auto) 1.0 H Eos # (Auto) Seg Neutrophils % 76.3 H Seg Neuts % (Manual) Baso # (Auto) Lymphocytes % (Manual) Monocytes % (Manual) Eosinophils % (Manual) Basophils % (Manual) Seg Neutrophils # 9.9 H Seg Neutrophils # Man Lymphocytes # (Manual) Monocytes # (Manual) Eosinophils # (Manual) Nucleated RBC % Basophils # (Manual) PT INR APTT Heparin Anti-Xa Level ABG pH POC ABG pO2 ABG pO2 ABG HCO3 ABG O2 Saturation ABG Base Excess POC ABG pCO2 ABG Hemoglobin ABG Oxyhemoglobin ABG Sodium ABG Chloride ABG Glucose Oxyhemoglobin Sodium Potassium Chloride Carbon Dioxide BUN 22 H Creatinine 0.6 L Glucose 101 H POC Glucose 130 H Lactic Acid Calcium Phosphorus Magnesium AST ALT Lactate Dehydrogenase Total Bilirubin Direct Bilirubin CK-MB (CK-2) C-Reactive Protein NT-Pro-B Natriuret Pep Total Protein Albumin Arterial Blood Glucose Urine WBC (Auto) Urine Creatinine 12/28/19 12/28/19 12/28/19 06:00 12:34 18:13 WBC RBC Hgb Hct MCHC RDW MCV MCH Lymph % (Auto) [place] % (Auto) [place] # Eos # Lymph # (Auto) [place] # (Auto) Eos # (Auto) Seg Neutrophils % Seg Neuts % (Manual) Baso # (Auto) Lymphocytes % (Manual) Monocytes % (Manual) Eosinophils % (Manual) Basophils % (Manual) Seg Neutrophils # Seg Neutrophils # Man Lymphocytes # (Manual) Monocytes # (Manual) Eosinophils # (Manual) Nucleated RBC % Basophils # (Manual) PT INR APTT Heparin Anti-Xa Level ABG pH POC ABG pO2 ABG pO2 ABG HCO3 ABG O2 Saturation ABG Base Excess POC ABG pCO2 ABG Hemoglobin ABG Oxyhemoglobin ABG Sodium ABG Chloride ABG Glucose Oxyhemoglobin Sodium Potassium Chloride Carbon Dioxide BUN Creatinine Glucose POC Glucose 150 H 161 H 128 H Lactic Acid Calcium Phosphorus Magnesium AST ALT Lactate Dehydrogenase Total Bilirubin Direct Bilirubin CK-MB (CK-2) C-Reactive Protein NT-Pro-B Natriuret Pep Total Protein Albumin Arterial Blood Glucose Urine WBC (Auto) Urine Creatinine 12/28/19 12/29/19 12/29/19 23:36 05:21 11:40 WBC RBC Hgb Hct MCHC RDW MCV MCH Lymph % (Auto) [place] % (Auto) [place] # Eos # Lymph # (Auto) [place] # (Auto) Eos # (Auto) Seg Neutrophils % Seg Neuts % (Manual) Baso # (Auto) Lymphocytes % (Manual) Monocytes % (Manual) Eosinophils % (Manual) Basophils % (Manual) Seg Neutrophils # Seg Neutrophils # Man Lymphocytes # (Manual) Monocytes # (Manual) Eosinophils # (Manual) Nucleated RBC % Basophils # (Manual) PT INR APTT Heparin Anti-Xa Level ABG pH POC ABG pO2 ABG pO2 ABG HCO3 ABG O2 Saturation ABG Base Excess POC ABG pCO2 ABG Hemoglobin ABG Oxyhemoglobin ABG Sodium ABG Chloride ABG Glucose Oxyhemoglobin Sodium Potassium Chloride Carbon Dioxide BUN Creatinine Glucose POC Glucose 137 H 136 H 166 H Lactic Acid Calcium Phosphorus Magnesium AST ALT Lactate Dehydrogenase Total Bilirubin Direct Bilirubin CK-MB (CK-2) C-Reactive Protein NT-Pro-B Natriuret Pep Total Protein Albumin Arterial Blood Glucose Urine WBC (Auto) Urine Creatinine 12/29/19 12/29/19 12/29/19 17:23 19:21 23:38 WBC RBC Hgb Hct MCHC RDW MCV MCH Lymph % (Auto) [place] % (Auto) [place] # Eos # Lymph # (Auto) [place] # (Auto) Eos # (Auto) Seg Neutrophils % Seg Neuts % (Manual) Baso # (Auto) Lymphocytes % (Manual) Monocytes % (Manual) Eosinophils % (Manual) Basophils % (Manual) Seg Neutrophils # Seg Neutrophils # Man Lymphocytes # (Manual) Monocytes # (Manual) Eosinophils # (Manual) Nucleated RBC % Basophils # (Manual) PT INR APTT Heparin Anti-Xa Level 0.20 L ABG pH POC ABG pO2 ABG pO2 ABG HCO3 ABG O2 Saturation ABG Base Excess POC ABG pCO2 ABG Hemoglobin ABG Oxyhemoglobin ABG Sodium ABG Chloride ABG Glucose Oxyhemoglobin Sodium Potassium Chloride Carbon Dioxide BUN Creatinine Glucose POC Glucose 144 H 141 H Lactic Acid Calcium Phosphorus Magnesium AST ALT Lactate Dehydrogenase Total Bilirubin Direct Bilirubin CK-MB (CK-2) C-Reactive Protein NT-Pro-B Natriuret Pep Total Protein Albumin Arterial Blood Glucose Urine WBC (Auto) Urine Creatinine 12/30/19 12/30/19 12/30/19 03:58 03:58 04:59 WBC RBC 3.54 L Hgb 9.8 L Hct 30.7 L MCHC RDW 16.8 H MCV MCH Lymph % (Auto) [place] % (Auto) [place] # Eos # Lymph # (Auto) [place] # (Auto) Eos # (Auto) Seg Neutrophils % Seg Neuts % (Manual) Baso # (Auto) Lymphocytes % (Manual) Monocytes % (Manual) Eosinophils % (Manual) Basophils % (Manual) Seg Neutrophils # Seg Neutrophils # Man Lymphocytes # (Manual) Monocytes # (Manual) Eosinophils # (Manual) Nucleated RBC % Basophils # (Manual) PT INR APTT Heparin Anti-Xa Level ABG pH POC ABG pO2 ABG pO2 ABG HCO3 29.8 H ABG O2 Saturation ABG Base Excess 4.8 H POC ABG pCO2 ABG Hemoglobin 11.2 L ABG Oxyhemoglobin ABG Sodium ABG Chloride ABG Glucose Oxyhemoglobin 93.8 L Sodium Potassium Chloride 97.8 L Carbon Dioxide BUN 26 H Creatinine Glucose 168 H POC Glucose Lactic Acid Calcium Phosphorus Magnesium AST ALT Lactate Dehydrogenase Total Bilirubin Direct Bilirubin CK-MB (CK-2) C-Reactive Protein NT-Pro-B Natriuret Pep Total Protein Albumin Arterial Blood Glucose Urine WBC (Auto) Urine Creatinine 12/30/19 12/30/19 12/30/19 05:45 11:34 17:28 WBC RBC Hgb Hct MCHC RDW MCV MCH Lymph % (Auto) [place] % (Auto) [place] # Eos # Lymph # (Auto) [place] # (Auto) Eos # (Auto) Seg Neutrophils % Seg Neuts % (Manual) Baso # (Auto) Lymphocytes % (Manual) Monocytes % (Manual) Eosinophils % (Manual) Basophils % (Manual) Seg Neutrophils # Seg Neutrophils # Man Lymphocytes # (Manual) Monocytes # (Manual) Eosinophils # (Manual) Nucleated RBC % Basophils # (Manual) PT INR APTT Heparin Anti-Xa Level ABG pH POC ABG pO2 ABG pO2 ABG HCO3 ABG O2 Saturation ABG Base Excess POC ABG pCO2 ABG Hemoglobin ABG Oxyhemoglobin ABG Sodium ABG Chloride ABG Glucose Oxyhemoglobin Sodium Potassium Chloride Carbon Dioxide BUN Creatinine Glucose POC Glucose 163 H 180 H 150 H Lactic Acid Calcium Phosphorus Magnesium AST ALT Lactate Dehydrogenase Total Bilirubin Direct Bilirubin CK-MB (CK-2) C-Reactive Protein NT-Pro-B Natriuret Pep Total Protein Albumin Arterial Blood Glucose Urine WBC (Auto) Urine Creatinine 12/30/19 12/31/19 12/31/19 23:43 04:55 05:07 WBC RBC Hgb Hct MCHC RDW MCV MCH Lymph % (Auto) [place] % (Auto) [place] # Eos # Lymph # (Auto) [place] # (Auto) Eos # (Auto) Seg Neutrophils % Seg Neuts % (Manual) Baso # (Auto) Lymphocytes % (Manual) Monocytes % (Manual) Eosinophils % (Manual) Basophils % (Manual) Seg Neutrophils # Seg Neutrophils # Man Lymphocytes # (Manual) Monocytes # (Manual) Eosinophils # (Manual) Nucleated RBC % Basophils # (Manual) PT INR APTT Heparin Anti-Xa Level ABG pH POC ABG pO2 ABG pO2 ABG HCO3 ABG O2 Saturation ABG Base Excess POC ABG pCO2 ABG Hemoglobin ABG Oxyhemoglobin ABG Sodium ABG Chloride ABG Glucose Oxyhemoglobin Sodium Potassium 5.6 H D Chloride Carbon Dioxide BUN 33 H Creatinine Glucose 131 H POC Glucose 142 H 134 H Lactic Acid Calcium Phosphorus Magnesium AST ALT Lactate Dehydrogenase Total Bilirubin Direct Bilirubin CK-MB (CK-2) C-Reactive Protein NT-Pro-B Natriuret Pep Total Protein Albumin Arterial Blood Glucose Urine WBC (Auto) Urine Creatinine 12/31/19 12/31/19 12/31/19 11:30 17:19 17:36 WBC RBC Hgb Hct MCHC RDW MCV MCH Lymph % (Auto) [place] % (Auto) [place] # Eos # Lymph # (Auto) [place] # (Auto) Eos # (Auto) Seg Neutrophils % Seg Neuts % (Manual) Baso # (Auto) Lymphocytes % (Manual) Monocytes % (Manual) Eosinophils % (Manual) Basophils % (Manual) Seg Neutrophils # Seg Neutrophils # Man Lymphocytes # (Manual) Monocytes # (Manual) Eosinophils # (Manual) Nucleated RBC % Basophils # (Manual) PT INR APTT Heparin Anti-Xa Level ABG pH POC ABG pO2 ABG pO2 ABG HCO3 ABG O2 Saturation ABG Base Excess POC ABG pCO2 ABG Hemoglobin ABG Oxyhemoglobin ABG Sodium ABG Chloride ABG Glucose Oxyhemoglobin Sodium Potassium Chloride Carbon Dioxide BUN 35 H Creatinine Glucose 156 H POC Glucose 158 H 181 H Lactic Acid Calcium Phosphorus Magnesium AST ALT Lactate Dehydrogenase Total Bilirubin Direct Bilirubin CK-MB (CK-2) C-Reactive Protein NT-Pro-B Natriuret Pep Total Protein Albumin Arterial Blood Glucose Urine WBC (Auto) Urine Creatinine 12/31/19 12/31/19 12/31/19 18:16 19:41 21:53 WBC RBC Hgb Hct MCHC RDW MCV MCH Lymph % (Auto) [place] % (Auto) [place] # Eos # Lymph # (Auto) [place] # (Auto) Eos # (Auto) Seg Neutrophils % Seg Neuts % (Manual) Baso # (Auto) Lymphocytes % (Manual) Monocytes % (Manual) Eosinophils % (Manual) Basophils % (Manual) Seg Neutrophils # Seg Neutrophils # Man Lymphocytes # (Manual) Monocytes # (Manual) Eosinophils # (Manual) Nucleated RBC % Basophils # (Manual) PT INR APTT Heparin Anti-Xa Level 0.20 L ABG pH POC ABG pO2 ABG pO2 ABG HCO3 ABG O2 Saturation ABG Base Excess POC ABG pCO2 ABG Hemoglobin ABG Oxyhemoglobin ABG Sodium ABG Chloride ABG Glucose Oxyhemoglobin Sodium Potassium Chloride Carbon Dioxide BUN 34 H Creatinine Glucose 169 H POC Glucose 141 H Lactic Acid Calcium Phosphorus Magnesium AST ALT Lactate Dehydrogenase Total Bilirubin Direct Bilirubin CK-MB (CK-2) C-Reactive Protein NT-Pro-B Natriuret Pep Total Protein Albumin Arterial Blood Glucose Urine WBC (Auto) Urine Creatinine 12/31/19 01/01/20 01/01/20 23:51 05:17 10:40 WBC RBC Hgb Hct MCHC RDW MCV MCH Lymph % (Auto) [place] % (Auto) [place] # Eos # Lymph # (Auto) [place] # (Auto) Eos # (Auto) Seg Neutrophils % Seg Neuts % (Manual) Baso # (Auto) Lymphocytes % (Manual) Monocytes % (Manual) Eosinophils % (Manual) Basophils % (Manual) Seg Neutrophils # Seg Neutrophils # Man Lymphocytes # (Manual) Monocytes # (Manual) Eosinophils # (Manual) Nucleated RBC % Basophils # (Manual) PT INR APTT Heparin Anti-Xa Level ABG pH POC ABG pO2 ABG pO2 ABG HCO3 ABG O2 Saturation ABG Base Excess POC ABG pCO2 ABG Hemoglobin ABG Oxyhemoglobin ABG Sodium ABG Chloride ABG Glucose Oxyhemoglobin Sodium Potassium Chloride Carbon Dioxide BUN 31 H Creatinine 0.7 L Glucose 137 H POC Glucose 131 H 155 H Lactic Acid Calcium Phosphorus Magnesium AST 73 H ALT 97 H Lactate Dehydrogenase Total Bilirubin Direct Bilirubin CK-MB (CK-2) C-Reactive Protein NT-Pro-B Natriuret Pep 3866 H Total Protein Albumin 2.8 L Arterial Blood Glucose Urine WBC (Auto) Urine Creatinine 01/01/20 01/01/20 01/01/20 12:26 15:33 17:53 WBC 14.3 H RBC 3.35 L Hgb 9.1 L Hct 28.8 L MCHC RDW 17.0 H MCV MCH 27 L Lymph % (Auto) 7.0 L [place] % (Auto) 7.6 H [place] # Eos # Lymph # (Auto) 1.0 L [place] # (Auto) 1.1 H Eos # (Auto) Seg Neutrophils % 83.3 H Seg Neuts % (Manual) Baso # (Auto) Lymphocytes % (Manual) Monocytes % (Manual) Eosinophils % (Manual) Basophils % (Manual) Seg Neutrophils # 12.0 H Seg Neutrophils # Man Lymphocytes # (Manual) Monocytes # (Manual) Eosinophils # (Manual) Nucleated RBC % Basophils # (Manual) PT INR APTT Heparin Anti-Xa Level ABG pH POC ABG pO2 ABG pO2 ABG HCO3 ABG O2 Saturation ABG Base Excess POC ABG pCO2 ABG Hemoglobin ABG Oxyhemoglobin ABG Sodium ABG Chloride ABG Glucose Oxyhemoglobin Sodium Potassium Chloride Carbon Dioxide BUN Creatinine Glucose POC Glucose 128 H 128 H Lactic Acid Calcium Phosphorus Magnesium AST ALT Lactate Dehydrogenase Total Bilirubin Direct Bilirubin CK-MB (CK-2) C-Reactive Protein NT-Pro-B Natriuret Pep Total Protein Albumin Arterial Blood Glucose Urine WBC (Auto) Urine Creatinine 01/01/20 01/02/20 01/02/20 23:04 05:39 07:00 WBC RBC Hgb Hct MCHC RDW MCV MCH Lymph % (Auto) [place] % (Auto) [place] # Eos # Lymph # (Auto) [place] # (Auto) Eos # (Auto) Seg Neutrophils % Seg Neuts % (Manual) Baso # (Auto) Lymphocytes % (Manual) Monocytes % (Manual) Eosinophils % (Manual) Basophils % (Manual) Seg Neutrophils # Seg Neutrophils # Man Lymphocytes # (Manual) Monocytes # (Manual) Eosinophils # (Manual) Nucleated RBC % Basophils # (Manual) PT INR APTT Heparin Anti-Xa Level 0.13 L ABG pH POC ABG pO2 ABG pO2 ABG HCO3 ABG O2 Saturation ABG Base Excess POC ABG pCO2 ABG Hemoglobin ABG Oxyhemoglobin ABG Sodium ABG Chloride ABG Glucose Oxyhemoglobin Sodium Potassium Chloride Carbon Dioxide BUN Creatinine Glucose POC Glucose 120 H 169 H Lactic Acid Calcium Phosphorus Magnesium AST ALT Lactate Dehydrogenase Total Bilirubin Direct Bilirubin CK-MB (CK-2) C-Reactive Protein NT-Pro-B Natriuret Pep Total Protein Albumin Arterial Blood Glucose Urine WBC (Auto) Urine Creatinine 01/02/20 01/02/20 01/02/20 12:15 14:06 17:58 WBC RBC Hgb Hct MCHC RDW MCV MCH Lymph % (Auto) [place] % (Auto) [place] # Eos # Lymph # (Auto) [place] # (Auto) Eos # (Auto) Seg Neutrophils % Seg Neuts % (Manual) Baso # (Auto) Lymphocytes % (Manual) Monocytes % (Manual) Eosinophils % (Manual) Basophils % (Manual) Seg Neutrophils # Seg Neutrophils # Man Lymphocytes # (Manual) Monocytes # (Manual) Eosinophils # (Manual) Nucleated RBC % Basophils # (Manual) PT INR APTT Heparin Anti-Xa Level < 0.10 L ABG pH POC ABG pO2 ABG pO2 ABG HCO3 ABG O2 Saturation ABG Base Excess POC ABG pCO2 ABG Hemoglobin ABG Oxyhemoglobin ABG Sodium ABG Chloride ABG Glucose Oxyhemoglobin Sodium Potassium Chloride Carbon Dioxide BUN Creatinine Glucose POC Glucose 190 H 198 H Lactic Acid Calcium Phosphorus Magnesium AST ALT Lactate Dehydrogenase Total Bilirubin Direct Bilirubin CK-MB (CK-2) C-Reactive Protein NT-Pro-B Natriuret Pep Total Protein Albumin Arterial Blood Glucose Urine WBC (Auto) Urine Creatinine 01/02/20 01/02/20 01/03/20 21:43 23:33 05:42 WBC RBC Hgb Hct MCHC RDW MCV MCH Lymph % (Auto) [place] % (Auto) [place] # Eos # Lymph # (Auto) [place] # (Auto) Eos # (Auto) Seg Neutrophils % Seg Neuts % (Manual) Baso # (Auto) Lymphocytes % (Manual) Monocytes % (Manual) Eosinophils % (Manual) Basophils % (Manual) Seg Neutrophils # Seg Neutrophils # Man Lymphocytes # (Manual) Monocytes # (Manual) Eosinophils # (Manual) Nucleated RBC % Basophils # (Manual) PT INR APTT Heparin Anti-Xa Level 0.10 L ABG pH POC ABG pO2 ABG pO2 ABG HCO3 ABG O2 Saturation ABG Base Excess POC ABG pCO2 ABG Hemoglobin ABG Oxyhemoglobin ABG Sodium ABG Chloride ABG Glucose Oxyhemoglobin Sodium Potassium Chloride Carbon Dioxide BUN Creatinine Glucose POC Glucose 180 H 163 H Lactic Acid Calcium Phosphorus Magnesium AST ALT Lactate Dehydrogenase Total Bilirubin Direct Bilirubin CK-MB (CK-2) C-Reactive Protein NT-Pro-B Natriuret Pep Total Protein Albumin Arterial Blood Glucose Urine WBC (Auto) Urine Creatinine 01/03/20 01/03/20 01/03/20 06:50 07:25 07:45 WBC 12.1 H RBC 3.35 L Hgb 9.0 L Hct 28.9 L MCHC 31 L RDW 16.6 H MCV MCH 27 L Lymph % (Auto) 13.0 L [place] % (Auto) 8.6 H [place] # Eos # Lymph # (Auto) [place] # (Auto) 1.0 H Eos # (Auto) Seg Neutrophils % 75.9 H Seg Neuts % (Manual) Baso # (Auto) Lymphocytes % (Manual) Monocytes % (Manual) Eosinophils % (Manual) Basophils % (Manual) Seg Neutrophils # 9.2 H Seg Neutrophils # Man Lymphocytes # (Manual) Monocytes # (Manual) Eosinophils # (Manual) Nucleated RBC % Basophils # (Manual) PT INR APTT Heparin Anti-Xa Level 0.29 L ABG pH POC ABG pO2 ABG pO2 ABG HCO3 ABG O2 Saturation ABG Base Excess POC ABG pCO2 ABG Hemoglobin ABG Oxyhemoglobin ABG Sodium ABG Chloride ABG Glucose Oxyhemoglobin Sodium Potassium 3.3 L D Chloride Carbon Dioxide 35 H D BUN 23 H Creatinine 0.6 L Glucose 149 H POC Glucose Lactic Acid Calcium Phosphorus Magnesium AST ALT 88 H Lactate Dehydrogenase Total Bilirubin Direct Bilirubin CK-MB (CK-2) C-Reactive Protein NT-Pro-B Natriuret Pep Total Protein 6.2 L Albumin 2.9 L Arterial Blood Glucose Urine WBC (Auto) Urine Creatinine 01/03/20 01/03/20 01/03/20 12:05 17:42 18:30 WBC RBC Hgb Hct MCHC RDW MCV MCH Lymph % (Auto) [place] % (Auto) [place] # Eos # Lymph # (Auto) [place] # (Auto) Eos # (Auto) Seg Neutrophils % Seg Neuts % (Manual) Baso # (Auto) Lymphocytes % (Manual) Monocytes % (Manual) Eosinophils % (Manual) Basophils % (Manual) Seg Neutrophils # Seg Neutrophils # Man Lymphocytes # (Manual) Monocytes # (Manual) Eosinophils # (Manual) Nucleated RBC % Basophils # (Manual) PT INR APTT Heparin Anti-Xa Level ABG pH POC ABG pO2 ABG pO2 70.7 L ABG HCO3 36.1 H ABG O2 Saturation 94.4 L ABG Base Excess 10.0 H POC ABG pCO2 ABG Hemoglobin 9.7 L ABG Oxyhemoglobin ABG Sodium ABG Chloride ABG Glucose Oxyhemoglobin 91.8 L Sodium Potassium Chloride Carbon Dioxide BUN Creatinine Glucose POC Glucose 128 H 132 H Lactic Acid Calcium Phosphorus Magnesium AST ALT Lactate Dehydrogenase Total Bilirubin Direct Bilirubin CK-MB (CK-2) C-Reactive Protein NT-Pro-B Natriuret Pep Total Protein Albumin Arterial Blood Glucose Urine WBC (Auto) Urine Creatinine 01/04/20 01/04/20 01/04/20 00:10 04:26 05:23 WBC RBC Hgb Hct MCHC RDW MCV MCH Lymph % (Auto) [place] % (Auto) [place] # Eos # Lymph # (Auto) [place] # (Auto) Eos # (Auto) Seg Neutrophils % Seg Neuts % (Manual) Baso # (Auto) Lymphocytes % (Manual) Monocytes % (Manual) Eosinophils % (Manual) Basophils % (Manual) Seg Neutrophils # Seg Neutrophils # Man Lymphocytes # (Manual) Monocytes # (Manual) Eosinophils # (Manual) Nucleated RBC % Basophils # (Manual) PT INR APTT Heparin Anti-Xa Level 0.16 L ABG pH POC ABG pO2 ABG pO2 ABG HCO3 ABG O2 Saturation ABG Base Excess POC ABG pCO2 ABG Hemoglobin ABG Oxyhemoglobin ABG Sodium ABG Chloride ABG Glucose Oxyhemoglobin Sodium Potassium Chloride Carbon Dioxide BUN Creatinine Glucose POC Glucose 121 H 119 H Lactic Acid Calcium Phosphorus Magnesium AST ALT Lactate Dehydrogenase Total Bilirubin Direct Bilirubin CK-MB (CK-2) C-Reactive Protein NT-Pro-B Natriuret Pep Total Protein Albumin Arterial Blood Glucose Urine WBC (Auto) Urine Creatinine 01/04/20 01/04/20 01/04/20 09:50 09:50 12:18 WBC 15.4 H RBC 3.30 L Hgb 8.7 L Hct 28.2 L MCHC 31 L RDW 17.0 H MCV MCH 26 L Lymph % (Auto) [place] % (Auto) 7.6 H [place] # Eos # Lymph # (Auto) [place] # (Auto) 1.2 H Eos # (Auto) Seg Neutrophils % 75.4 H Seg Neuts % (Manual) Baso # (Auto) Lymphocytes % (Manual) Monocytes % (Manual) Eosinophils % (Manual) Basophils % (Manual) Seg Neutrophils # 11.6 H Seg Neutrophils # Man Lymphocytes # (Manual) Monocytes # (Manual) Eosinophils # (Manual) Nucleated RBC % Basophils # (Manual) PT INR APTT Heparin Anti-Xa Level ABG pH POC ABG pO2 ABG pO2 ABG HCO3 ABG O2 Saturation ABG Base Excess POC ABG pCO2 ABG Hemoglobin ABG Oxyhemoglobin ABG Sodium ABG Chloride ABG Glucose Oxyhemoglobin Sodium 148 H Potassium 3.5 L Chloride Carbon Dioxide 32 H BUN Creatinine 0.6 L Glucose 114 H POC Glucose 111 H Lactic Acid Calcium Phosphorus Magnesium AST ALT 59 H Lactate Dehydrogenase Total Bilirubin Direct Bilirubin CK-MB (CK-2) C-Reactive Protein NT-Pro-B Natriuret Pep Total Protein Albumin 2.6 L Arterial Blood Glucose Urine WBC (Auto) Urine Creatinine 01/05/20 01/05/20 01/05/20 04:05 04:05 05:19 WBC 11.7 H RBC 3.50 L Hgb 9.3 L Hct 29.9 L MCHC 31 L RDW 16.6 H MCV MCH 27 L Lymph % (Auto) 13.1 L [place] % (Auto) 9.7 H [place] # Eos # Lymph # (Auto) [place] # (Auto) 1.1 H Eos # (Auto) Seg Neutrophils % 74.0 H Seg Neuts % (Manual) Baso # (Auto) Lymphocytes % (Manual) Monocytes % (Manual) Eosinophils % (Manual) Basophils % (Manual) Seg Neutrophils # 8.6 H Seg Neutrophils # Man Lymphocytes # (Manual) Monocytes # (Manual) Eosinophils # (Manual) Nucleated RBC % Basophils # (Manual) PT INR APTT Heparin Anti-Xa Level ABG pH POC ABG pO2 ABG pO2 ABG HCO3 ABG O2 Saturation ABG Base Excess POC ABG pCO2 ABG Hemoglobin ABG Oxyhemoglobin ABG Sodium ABG Chloride ABG Glucose Oxyhemoglobin Sodium 151 H Potassium Chloride Carbon Dioxide 34 H BUN Creatinine 0.7 L Glucose POC Glucose 112 H Lactic Acid Calcium Phosphorus Magnesium AST ALT 59 H Lactate Dehydrogenase Total Bilirubin Direct Bilirubin CK-MB (CK-2) C-Reactive Protein NT-Pro-B Natriuret Pep Total Protein 5.8 L Albumin 2.6 L Arterial Blood Glucose Urine WBC (Auto) Urine Creatinine 01/05/20 01/06/20 01/06/20 16:04 00:23 04:44 WBC RBC 3.36 L Hgb 8.9 L Hct 28.7 L MCHC 31 L RDW 16.9 H MCV MCH 26 L Lymph % (Auto) [place] % (Auto) 9.4 H [place] # Eos # Lymph # (Auto) [place] # (Auto) Eos # (Auto) Seg Neutrophils % Seg Neuts % (Manual) Baso # (Auto) Lymphocytes % (Manual) Monocytes % (Manual) Eosinophils % (Manual) Basophils % (Manual) Seg Neutrophils # Seg Neutrophils # Man Lymphocytes # (Manual) Monocytes # (Manual) Eosinophils # (Manual) Nucleated RBC % Basophils # (Manual) PT INR APTT Heparin Anti-Xa Level ABG pH POC ABG pO2 ABG pO2 ABG HCO3 ABG O2 Saturation ABG Base Excess POC ABG pCO2 ABG Hemoglobin ABG Oxyhemoglobin ABG Sodium ABG Chloride ABG Glucose Oxyhemoglobin Sodium 151 H Potassium 3.2 L Chloride Carbon Dioxide 34 H BUN Creatinine 0.6 L Glucose POC Glucose 107 H Lactic Acid Calcium Phosphorus Magnesium AST ALT Lactate Dehydrogenase Total Bilirubin Direct Bilirubin CK-MB (CK-2) C-Reactive Protein NT-Pro-B Natriuret Pep Total Protein Albumin Arterial Blood Glucose Urine WBC (Auto) Urine Creatinine 01/06/20 01/06/20 01/06/20 04:44 05:33 12:04 WBC RBC Hgb Hct MCHC RDW MCV MCH Lymph % (Auto) [place] % (Auto) [place] # Eos # Lymph # (Auto) [place] # (Auto) Eos # (Auto) Seg Neutrophils % Seg Neuts % (Manual) Baso # (Auto) Lymphocytes % (Manual) Monocytes % (Manual) Eosinophils % (Manual) Basophils % (Manual) Seg Neutrophils # Seg Neutrophils # Man Lymphocytes # (Manual) Monocytes # (Manual) Eosinophils # (Manual) Nucleated RBC % Basophils # (Manual) PT INR APTT Heparin Anti-Xa Level ABG pH POC ABG pO2 ABG pO2 ABG HCO3 ABG O2 Saturation ABG Base Excess POC ABG pCO2 ABG Hemoglobin ABG Oxyhemoglobin ABG Sodium ABG Chloride ABG Glucose Oxyhemoglobin Sodium 151 H Potassium 3.4 L Chloride Carbon Dioxide 33 H BUN Creatinine 0.6 L Glucose 118 H POC Glucose 118 H 123 H Lactic Acid Calcium Phosphorus Magnesium AST ALT Lactate Dehydrogenase Total Bilirubin Direct Bilirubin CK-MB (CK-2) C-Reactive Protein NT-Pro-B Natriuret Pep Total Protein 6.2 L Albumin 2.6 L Arterial Blood Glucose Urine WBC (Auto) Urine Creatinine 01/06/20 01/07/20 01/07/20 17:54 00:06 04:10 WBC RBC 3.42 L Hgb 8.9 L Hct 29.0 L MCHC 31 L RDW 17.1 H MCV MCH 26 L Lymph % (Auto) [place] % (Auto) 8.4 H [place] # Eos # Lymph # (Auto) [place] # (Auto) Eos # (Auto) Seg Neutrophils % Seg Neuts % (Manual) Baso # (Auto) Lymphocytes % (Manual) Monocytes % (Manual) Eosinophils % (Manual) Basophils % (Manual) Seg Neutrophils # Seg Neutrophils # Man Lymphocytes # (Manual) Monocytes # (Manual) Eosinophils # (Manual) Nucleated RBC % Basophils # (Manual) PT INR APTT Heparin Anti-Xa Level ABG pH POC ABG pO2 ABG pO2 ABG HCO3 ABG O2 Saturation ABG Base Excess POC ABG pCO2 ABG Hemoglobin ABG Oxyhemoglobin ABG Sodium ABG Chloride ABG Glucose Oxyhemoglobin Sodium Potassium Chloride Carbon Dioxide BUN Creatinine Glucose POC Glucose 112 H 126 H Lactic Acid Calcium Phosphorus Magnesium AST ALT Lactate Dehydrogenase Total Bilirubin Direct Bilirubin CK-MB (CK-2) C-Reactive Protein NT-Pro-B Natriuret Pep Total Protein Albumin Arterial Blood Glucose Urine WBC (Auto) Urine Creatinine 01/07/20 01/07/20 01/07/20 04:10 05:59 12:27 WBC RBC Hgb Hct MCHC RDW MCV MCH Lymph % (Auto) [place] % (Auto) [place] # Eos # Lymph # (Auto) [place] # (Auto) Eos # (Auto) Seg Neutrophils % Seg Neuts % (Manual) Baso # (Auto) Lymphocytes % (Manual) Monocytes % (Manual) Eosinophils % (Manual) Basophils % (Manual) Seg Neutrophils # Seg Neutrophils # Man Lymphocytes # (Manual) Monocytes # (Manual) Eosinophils # (Manual) Nucleated RBC % Basophils # (Manual) PT INR APTT Heparin Anti-Xa Level ABG pH POC ABG pO2 ABG pO2 ABG HCO3 ABG O2 Saturation ABG Base Excess POC ABG pCO2 ABG Hemoglobin ABG Oxyhemoglobin ABG Sodium ABG Chloride ABG Glucose Oxyhemoglobin Sodium 153 H Potassium 3.5 L Chloride Carbon Dioxide 34 H BUN Creatinine 0.6 L Glucose 121 H POC Glucose 121 H 126 H Lactic Acid Calcium Phosphorus Magnesium AST ALT Lactate Dehydrogenase Total Bilirubin Direct Bilirubin CK-MB (CK-2) C-Reactive Protein NT-Pro-B Natriuret Pep Total Protein 5.9 L Albumin 2.4 L Arterial Blood Glucose Urine WBC (Auto) Urine Creatinine 01/07/20 01/08/20 01/08/20 18:12 00:03 05:41 WBC RBC Hgb Hct MCHC RDW MCV MCH Lymph % (Auto) [place] % (Auto) [place] # Eos # Lymph # (Auto) [place] # (Auto) Eos # (Auto) Seg Neutrophils % Seg Neuts % (Manual) Baso # (Auto) Lymphocytes % (Manual) Monocytes % (Manual) Eosinophils % (Manual) Basophils % (Manual) Seg Neutrophils # Seg Neutrophils # Man Lymphocytes # (Manual) Monocytes # (Manual) Eosinophils # (Manual) Nucleated RBC % Basophils # (Manual) PT INR APTT Heparin Anti-Xa Level ABG pH POC ABG pO2 ABG pO2 ABG HCO3 ABG O2 Saturation ABG Base Excess POC ABG pCO2 ABG Hemoglobin ABG Oxyhemoglobin ABG Sodium ABG Chloride ABG Glucose Oxyhemoglobin Sodium Potassium Chloride Carbon Dioxide BUN Creatinine Glucose POC Glucose 124 H 130 H 138 H Lactic Acid Calcium Phosphorus Magnesium AST ALT Lactate Dehydrogenase Total Bilirubin Direct Bilirubin CK-MB (CK-2) C-Reactive Protein NT-Pro-B Natriuret Pep Total Protein Albumin Arterial Blood Glucose Urine WBC (Auto) Urine Creatinine 01/08/20 01/08/20 01/08/20 09:28 11:42 18:21 WBC RBC Hgb Hct MCHC RDW MCV MCH Lymph % (Auto) [place] % (Auto) [place] # Eos # Lymph # (Auto) [place] # (Auto) Eos # (Auto) Seg Neutrophils % Seg Neuts % (Manual) Baso # (Auto) Lymphocytes % (Manual) Monocytes % (Manual) Eosinophils % (Manual) Basophils % (Manual) Seg Neutrophils # Seg Neutrophils # Man Lymphocytes # (Manual) Monocytes # (Manual) Eosinophils # (Manual) Nucleated RBC % Basophils # (Manual) PT INR APTT Heparin Anti-Xa Level ABG pH POC ABG pO2 ABG pO2 ABG HCO3 ABG O2 Saturation ABG Base Excess POC ABG pCO2 ABG Hemoglobin ABG Oxyhemoglobin ABG Sodium ABG Chloride ABG Glucose Oxyhemoglobin Sodium Potassium Chloride Carbon Dioxide BUN Creatinine Glucose POC Glucose 181 H 150 H 129 H Lactic Acid Calcium Phosphorus Magnesium AST ALT Lactate Dehydrogenase Total Bilirubin Direct Bilirubin CK-MB (CK-2) C-Reactive Protein NT-Pro-B Natriuret Pep Total Protein Albumin Arterial Blood Glucose Urine WBC (Auto) Urine Creatinine 01/08/20 01/08/20 01/09/20 19:25 23:55 04:11 WBC RBC 3.43 L Hgb 8.9 L Hct 28.7 L MCHC 31 L RDW 17.6 H MCV MCH 26 L Lymph % (Auto) [place] % (Auto) 8.6 H [place] # Eos # Lymph # (Auto) [place] # (Auto) Eos # (Auto) Seg Neutrophils % Seg Neuts % (Manual) Baso # (Auto) Lymphocytes % (Manual) Monocytes % (Manual) Eosinophils % (Manual) Basophils % (Manual) Seg Neutrophils # Seg Neutrophils # Man Lymphocytes # (Manual) Monocytes # (Manual) Eosinophils # (Manual) Nucleated RBC % Basophils # (Manual) PT INR APTT Heparin Anti-Xa Level ABG pH POC ABG pO2 ABG pO2 ABG HCO3 ABG O2 Saturation ABG Base Excess POC ABG pCO2 ABG Hemoglobin ABG Oxyhemoglobin ABG Sodium ABG Chloride ABG Glucose Oxyhemoglobin Sodium Potassium Chloride Carbon Dioxide BUN Creatinine 0.7 L Glucose 117 H POC Glucose 132 H Lactic Acid Calcium Phosphorus Magnesium AST ALT Lactate Dehydrogenase Total Bilirubin Direct Bilirubin CK-MB (CK-2) C-Reactive Protein NT-Pro-B Natriuret Pep Total Protein Albumin Arterial Blood Glucose Urine WBC (Auto) Urine Creatinine 01/09/20 01/09/20 01/09/20 04:11 05:38 22:58 WBC RBC Hgb Hct MCHC RDW MCV MCH Lymph % (Auto) [place] % (Auto) [place] # Eos # Lymph # (Auto) [place] # (Auto) Eos # (Auto) Seg Neutrophils % Seg Neuts % (Manual) Baso # (Auto) Lymphocytes % (Manual) Monocytes % (Manual) Eosinophils % (Manual) Basophils % (Manual) Seg Neutrophils # Seg Neutrophils # Man Lymphocytes # (Manual) Monocytes # (Manual) Eosinophils # (Manual) Nucleated RBC % Basophils # (Manual) PT INR APTT Heparin Anti-Xa Level ABG pH POC ABG pO2 ABG pO2 ABG HCO3 ABG O2 Saturation ABG Base Excess POC ABG pCO2 ABG Hemoglobin ABG Oxyhemoglobin ABG Sodium ABG Chloride ABG Glucose Oxyhemoglobin Sodium 147 H Potassium 3.3 L D Chloride Carbon Dioxide 32 H BUN Creatinine 0.6 L Glucose 106 H POC Glucose 107 H 113 H Lactic Acid Calcium Phosphorus Magnesium AST ALT Lactate Dehydrogenase Total Bilirubin Direct Bilirubin CK-MB (CK-2) C-Reactive Protein NT-Pro-B Natriuret Pep Total Protein Albumin Arterial Blood Glucose Urine WBC (Auto) Urine Creatinine 01/10/20 01/10/20 01/10/20 04:05 11:36 17:54 WBC RBC Hgb Hct MCHC RDW MCV MCH Lymph % (Auto) [place] % (Auto) [place] # Eos # Lymph # (Auto) [place] # (Auto) Eos # (Auto) Seg Neutrophils % Seg Neuts % (Manual) Baso # (Auto) Lymphocytes % (Manual) Monocytes % (Manual) Eosinophils % (Manual) Basophils % (Manual) Seg Neutrophils # Seg Neutrophils # Man Lymphocytes # (Manual) Monocytes # (Manual) Eosinophils # (Manual) Nucleated RBC % Basophils # (Manual) PT INR APTT Heparin Anti-Xa Level ABG pH POC ABG pO2 ABG pO2 ABG HCO3 ABG O2 Saturation ABG Base Excess POC ABG pCO2 ABG Hemoglobin ABG Oxyhemoglobin ABG Sodium ABG Chloride ABG Glucose Oxyhemoglobin Sodium Potassium Chloride Carbon Dioxide BUN Creatinine 0.7 L Glucose 110 H POC Glucose 129 H 117 H Lactic Acid Calcium Phosphorus Magnesium AST ALT Lactate Dehydrogenase Total Bilirubin Direct Bilirubin CK-MB (CK-2) C-Reactive Protein NT-Pro-B Natriuret Pep Total Protein Albumin Arterial Blood Glucose Urine WBC (Auto) Urine Creatinine 01/10/20 01/11/20 01/11/20 23:52 03:19 12:09 WBC RBC Hgb Hct MCHC RDW MCV MCH Lymph % (Auto) [place] % (Auto) [place] # Eos # Lymph # (Auto) [place] # (Auto) Eos # (Auto) Seg Neutrophils % Seg Neuts % (Manual) Baso # (Auto) Lymphocytes % (Manual) Monocytes % (Manual) Eosinophils % (Manual) Basophils % (Manual) Seg Neutrophils # Seg Neutrophils # Man Lymphocytes # (Manual) Monocytes # (Manual) Eosinophils # (Manual) Nucleated RBC % Basophils # (Manual) PT INR APTT Heparin Anti-Xa Level ABG pH POC ABG pO2 ABG pO2 ABG HCO3 ABG O2 Saturation ABG Base Excess POC ABG pCO2 ABG Hemoglobin ABG Oxyhemoglobin ABG Sodium ABG Chloride ABG Glucose Oxyhemoglobin Sodium Potassium Chloride Carbon Dioxide BUN Creatinine Glucose POC Glucose 117 H 136 H 115 H Lactic Acid Calcium Phosphorus Magnesium AST ALT Lactate Dehydrogenase Total Bilirubin Direct Bilirubin CK-MB (CK-2) C-Reactive Protein NT-Pro-B Natriuret Pep Total Protein Albumin Arterial Blood Glucose Urine WBC (Auto) Urine Creatinine 01/11/20 01/11/20 01/12/20 18:27 23:28 00:23 WBC RBC Hgb 9.8 L Hct 31.6 L MCHC 31 L RDW 17.8 H MCV 83 L MCH 26 L Lymph % (Auto) [place] % (Auto) 8.0 H [place] # Eos # Lymph # (Auto) [place] # (Auto) Eos # (Auto) Seg Neutrophils % Seg Neuts % (Manual) Baso # (Auto) Lymphocytes % (Manual) Monocytes % (Manual) Eosinophils % (Manual) Basophils % (Manual) Seg Neutrophils # Seg Neutrophils # Man Lymphocytes # (Manual) Monocytes # (Manual) Eosinophils # (Manual) Nucleated RBC % Basophils # (Manual) PT INR APTT Heparin Anti-Xa Level ABG pH POC ABG pO2 ABG pO2 ABG HCO3 ABG O2 Saturation ABG Base Excess POC ABG pCO2 ABG Hemoglobin ABG Oxyhemoglobin ABG Sodium ABG Chloride ABG Glucose Oxyhemoglobin Sodium Potassium Chloride Carbon Dioxide BUN Creatinine Glucose POC Glucose 118 H 122 H Lactic Acid Calcium Phosphorus Magnesium AST ALT Lactate Dehydrogenase Total Bilirubin Direct Bilirubin CK-MB (CK-2) C-Reactive Protein NT-Pro-B Natriuret Pep Total Protein Albumin Arterial Blood Glucose Urine WBC (Auto) Urine Creatinine 01/12/20 01/12/20 01/12/20 00:23 04:18 04:18 WBC RBC Hgb 9.6 L Hct 30.9 L MCHC 31 L RDW 17.3 H MCV 81 L MCH 25 L Lymph % (Auto) [place] % (Auto) [place] # Eos # Lymph # (Auto) [place] # (Auto) Eos # (Auto) Seg Neutrophils % Seg Neuts % (Manual) Baso # (Auto) Lymphocytes % (Manual) Monocytes % (Manual) Eosinophils % (Manual) Basophils % (Manual) Seg Neutrophils # Seg Neutrophils # Man Lymphocytes # (Manual) Monocytes # (Manual) Eosinophils # (Manual) Nucleated RBC % Basophils # (Manual) PT INR APTT Heparin Anti-Xa Level ABG pH POC ABG pO2 ABG pO2 ABG HCO3 ABG O2 Saturation ABG Base Excess POC ABG pCO2 ABG Hemoglobin ABG Oxyhemoglobin ABG Sodium ABG Chloride ABG Glucose Oxyhemoglobin Sodium Potassium Chloride Carbon Dioxide BUN Creatinine 0.7 L 0.7 L Glucose 111 H 108 H POC Glucose Lactic Acid Calcium Phosphorus Magnesium AST ALT Lactate Dehydrogenase Total Bilirubin Direct Bilirubin CK-MB (CK-2) C-Reactive Protein NT-Pro-B Natriuret Pep Total Protein Albumin 2.6 L Arterial Blood Glucose Urine WBC (Auto) Urine Creatinine 01/12/20 01/12/20 01/12/20 06:03 12:27 13:58 WBC RBC Hgb Hct MCHC RDW MCV MCH Lymph % (Auto) [place] % (Auto) [place] # Eos # Lymph # (Auto) [place] # (Auto) Eos # (Auto) Seg Neutrophils % Seg Neuts % (Manual) Baso # (Auto) Lymphocytes % (Manual) Monocytes % (Manual) Eosinophils % (Manual) Basophils % (Manual) Seg Neutrophils # Seg Neutrophils # Man Lymphocytes # (Manual) Monocytes # (Manual) Eosinophils # (Manual) Nucleated RBC % Basophils # (Manual) PT INR APTT Heparin Anti-Xa Level ABG pH 7.453 H POC ABG pO2 76.6 L ABG pO2 ABG HCO3 ABG O2 Saturation ABG Base Excess POC ABG pCO2 ABG Hemoglobin 10.3 L ABG Oxyhemoglobin ABG Sodium ABG Chloride ABG Glucose 99 H Oxyhemoglobin Sodium Potassium Chloride Carbon Dioxide BUN Creatinine Glucose POC Glucose 128 H 121 H Lactic Acid Calcium Phosphorus Magnesium AST ALT Lactate Dehydrogenase Total Bilirubin Direct Bilirubin CK-MB (CK-2) C-Reactive Protein NT-Pro-B Natriuret Pep Total Protein Albumin Arterial Blood Glucose 99 H Urine WBC (Auto) Urine Creatinine 01/12/20 01/13/20 01/13/20 18:24 12:01 17:46 WBC RBC Hgb Hct MCHC RDW MCV MCH Lymph % (Auto) [place] % (Auto) [place] # Eos # Lymph # (Auto) [place] # (Auto) Eos # (Auto) Seg Neutrophils % Seg Neuts % (Manual) Baso # (Auto) Lymphocytes % (Manual) Monocytes % (Manual) Eosinophils % (Manual) Basophils % (Manual) Seg Neutrophils # Seg Neutrophils # Man Lymphocytes # (Manual) Monocytes # (Manual) Eosinophils # (Manual) Nucleated RBC % Basophils # (Manual) PT INR APTT Heparin Anti-Xa Level ABG pH POC ABG pO2 ABG pO2 ABG HCO3 ABG O2 Saturation ABG Base Excess POC ABG pCO2 ABG Hemoglobin ABG Oxyhemoglobin ABG Sodium ABG Chloride ABG Glucose Oxyhemoglobin Sodium Potassium Chloride Carbon Dioxide BUN Creatinine Glucose POC Glucose 119 H 107 H 124 H Lactic Acid Calcium Phosphorus Magnesium AST ALT Lactate Dehydrogenase Total Bilirubin Direct Bilirubin CK-MB (CK-2) C-Reactive Protein NT-Pro-B Natriuret Pep Total Protein Albumin Arterial Blood Glucose Urine WBC (Auto) Urine Creatinine 01/13/20 01/14/20 01/14/20 20:40 00:10 05:33 WBC RBC Hgb Hct MCHC RDW MCV MCH Lymph % (Auto) [place] % (Auto) [place] # Eos # Lymph # (Auto) [place] # (Auto) Eos # (Auto) Seg Neutrophils % Seg Neuts % (Manual) Baso # (Auto) Lymphocytes % (Manual) Monocytes % (Manual) Eosinophils % (Manual) Basophils % (Manual) Seg Neutrophils # Seg Neutrophils # Man Lymphocytes # (Manual) Monocytes # (Manual) Eosinophils # (Manual) Nucleated RBC % Basophils # (Manual) PT INR APTT Heparin Anti-Xa Level ABG pH POC ABG pO2 ABG pO2 65.3 L ABG HCO3 31.8 H ABG O2 Saturation 93.5 L ABG Base Excess 6.7 H POC ABG pCO2 ABG Hemoglobin 13.3 L ABG Oxyhemoglobin ABG Sodium ABG Chloride ABG Glucose Oxyhemoglobin 90.9 L Sodium Potassium Chloride Carbon Dioxide BUN Creatinine Glucose POC Glucose 111 H 111 H Lactic Acid Calcium Phosphorus Magnesium AST ALT Lactate Dehydrogenase Total Bilirubin Direct Bilirubin CK-MB (CK-2) C-Reactive Protein NT-Pro-B Natriuret Pep Total Protein Albumin Arterial Blood Glucose Urine WBC (Auto) Urine Creatinine 01/14/20 01/14/20 01/14/20 12:10 16:14 16:14 WBC RBC Hgb 10.6 L Hct 34.2 L MCHC 31 L RDW 18.3 H MCV 83 L MCH 26 L Lymph % (Auto) [place] % (Auto) 7.4 H [place] # Eos # Lymph # (Auto) [place] # (Auto) Eos # (Auto) Seg Neutrophils % 71.9 H Seg Neuts % (Manual) Baso # (Auto) Lymphocytes % (Manual) Monocytes % (Manual) Eosinophils % (Manual) Basophils % (Manual) Seg Neutrophils # Seg Neutrophils # Man Lymphocytes # (Manual) Monocytes # (Manual) Eosinophils # (Manual) Nucleated RBC % Basophils # (Manual) PT INR APTT Heparin Anti-Xa Level ABG pH POC ABG pO2 ABG pO2 ABG HCO3 ABG O2 Saturation ABG Base Excess POC ABG pCO2 ABG Hemoglobin ABG Oxyhemoglobin ABG Sodium ABG Chloride ABG Glucose Oxyhemoglobin Sodium Potassium Chloride Carbon Dioxide 31 H BUN Creatinine 0.6 L Glucose 131 H POC Glucose 139 H Lactic Acid Calcium Phosphorus Magnesium AST ALT Lactate Dehydrogenase Total Bilirubin Direct Bilirubin CK-MB (CK-2) C-Reactive Protein NT-Pro-B Natriuret Pep Total Protein Albumin Arterial Blood Glucose Urine WBC (Auto) Urine Creatinine 01/14/20 01/15/20 01/15/20 18:05 00:52 05:35 WBC RBC Hgb Hct MCHC RDW MCV MCH Lymph % (Auto) [place] % (Auto) [place] # Eos # Lymph # (Auto) [place] # (Auto) Eos # (Auto) Seg Neutrophils % Seg Neuts % (Manual) Baso # (Auto) Lymphocytes % (Manual) Monocytes % (Manual) Eosinophils % (Manual) Basophils % (Manual) Seg Neutrophils # Seg Neutrophils # Man Lymphocytes # (Manual) Monocytes # (Manual) Eosinophils # (Manual) Nucleated RBC % Basophils # (Manual) PT INR APTT Heparin Anti-Xa Level ABG pH POC ABG pO2 ABG pO2 ABG HCO3 ABG O2 Saturation ABG Base Excess POC ABG pCO2 ABG Hemoglobin ABG Oxyhemoglobin ABG Sodium ABG Chloride ABG Glucose Oxyhemoglobin Sodium Potassium Chloride Carbon Dioxide BUN Creatinine Glucose POC Glucose 147 H 140 H 159 H Lactic Acid Calcium Phosphorus Magnesium AST ALT Lactate Dehydrogenase Total Bilirubin Direct Bilirubin CK-MB (CK-2) C-Reactive Protein NT-Pro-B Natriuret Pep Total Protein Albumin Arterial Blood Glucose Urine WBC (Auto) Urine Creatinine 01/15/20 01/15/20 01/16/20 12:52 17:43 00:32 WBC RBC Hgb Hct MCHC RDW MCV MCH Lymph % (Auto) [place] % (Auto) [place] # Eos # Lymph # (Auto) [place] # (Auto) Eos # (Auto) Seg Neutrophils % Seg Neuts % (Manual) Baso # (Auto) Lymphocytes % (Manual) Monocytes % (Manual) Eosinophils % (Manual) Basophils % (Manual) Seg Neutrophils # Seg Neutrophils # Man Lymphocytes # (Manual) Monocytes # (Manual) Eosinophils # (Manual) Nucleated RBC % Basophils # (Manual) PT INR APTT Heparin Anti-Xa Level ABG pH POC ABG pO2 ABG pO2 ABG HCO3 ABG O2 Saturation ABG Base Excess POC ABG pCO2 ABG Hemoglobin ABG Oxyhemoglobin ABG Sodium ABG Chloride ABG Glucose Oxyhemoglobin Sodium Potassium Chloride Carbon Dioxide BUN Creatinine Glucose POC Glucose 164 H 167 H 153 H Lactic Acid Calcium Phosphorus Magnesium AST ALT Lactate Dehydrogenase Total Bilirubin Direct Bilirubin CK-MB (CK-2) C-Reactive Protein NT-Pro-B Natriuret Pep Total Protein Albumin Arterial Blood Glucose Urine WBC (Auto) Urine Creatinine 01/16/20 01/16/20 01/17/20 05:46 11:48 06:38 WBC RBC Hgb Hct MCHC RDW MCV MCH Lymph % (Auto) [place] % (Auto) [place] # Eos # Lymph # (Auto) [place] # (Auto) Eos # (Auto) Seg Neutrophils % Seg Neuts % (Manual) Baso # (Auto) Lymphocytes % (Manual) Monocytes % (Manual) Eosinophils % (Manual) Basophils % (Manual) Seg Neutrophils # Seg Neutrophils # Man Lymphocytes # (Manual) Monocytes # (Manual) Eosinophils # (Manual) Nucleated RBC % Basophils # (Manual) PT INR APTT Heparin Anti-Xa Level ABG pH POC ABG pO2 ABG pO2 ABG HCO3 ABG O2 Saturation ABG Base Excess POC ABG pCO2 ABG Hemoglobin ABG Oxyhemoglobin ABG Sodium ABG Chloride ABG Glucose Oxyhemoglobin Sodium Potassium Chloride Carbon Dioxide BUN Creatinine Glucose POC Glucose 163 H 155 H 116 H Lactic Acid Calcium Phosphorus Magnesium AST ALT Lactate Dehydrogenase Total Bilirubin Direct Bilirubin CK-MB (CK-2) C-Reactive Protein NT-Pro-B Natriuret Pep Total Protein Albumin Arterial Blood Glucose Urine WBC (Auto) Urine Creatinine 01/17/20 01/17/20 01/18/20 11:36 17:43 00:12 WBC RBC Hgb Hct MCHC RDW MCV MCH Lymph % (Auto) [place] % (Auto) [place] # Eos # Lymph # (Auto) [place] # (Auto) Eos # (Auto) Seg Neutrophils % Seg Neuts % (Manual) Baso # (Auto) Lymphocytes % (Manual) Monocytes % (Manual) Eosinophils % (Manual) Basophils % (Manual) Seg Neutrophils # Seg Neutrophils # Man Lymphocytes # (Manual) Monocytes # (Manual) Eosinophils # (Manual) Nucleated RBC % Basophils # (Manual) PT INR APTT Heparin Anti-Xa Level ABG pH POC ABG pO2 ABG pO2 ABG HCO3 ABG O2 Saturation ABG Base Excess POC ABG pCO2 ABG Hemoglobin ABG Oxyhemoglobin ABG Sodium ABG Chloride ABG Glucose Oxyhemoglobin Sodium Potassium Chloride Carbon Dioxide BUN Creatinine Glucose POC Glucose 110 H 134 H 108 H Lactic Acid Calcium Phosphorus Magnesium AST ALT Lactate Dehydrogenase Total Bilirubin Direct Bilirubin CK-MB (CK-2) C-Reactive Protein NT-Pro-B Natriuret Pep Total Protein Albumin Arterial Blood Glucose Urine WBC (Auto) Urine Creatinine 01/18/20 01/18/20 01/18/20 05:37 06:46 06:46 WBC RBC Hgb 10.1 L Hct 32.2 L MCHC 31 L RDW 18.1 H MCV 81 L MCH 25 L Lymph % (Auto) [place] % (Auto) [place] # Eos # Lymph # (Auto) [place] # (Auto) Eos # (Auto) Seg Neutrophils % 71.9 H Seg Neuts % (Manual) Baso # (Auto) Lymphocytes % (Manual) Monocytes % (Manual) Eosinophils % (Manual) Basophils % (Manual) Seg Neutrophils # Seg Neutrophils # Man Lymphocytes # (Manual) Monocytes # (Manual) Eosinophils # (Manual) Nucleated RBC % Basophils # (Manual) PT INR APTT Heparin Anti-Xa Level ABG pH POC ABG pO2 ABG pO2 ABG HCO3 ABG O2 Saturation ABG Base Excess POC ABG pCO2 ABG Hemoglobin ABG Oxyhemoglobin ABG Sodium ABG Chloride ABG Glucose Oxyhemoglobin Sodium Potassium Chloride Carbon Dioxide BUN Creatinine 0.7 L Glucose 155 H POC Glucose 168 H Lactic Acid Calcium Phosphorus Magnesium AST ALT Lactate Dehydrogenase Total Bilirubin Direct Bilirubin CK-MB (CK-2) C-Reactive Protein NT-Pro-B Natriuret Pep Total Protein Albumin Arterial Blood Glucose Urine WBC (Auto) Urine Creatinine 01/18/20 01/18/20 01/18/20 12:05 17:14 23:28 WBC RBC Hgb Hct MCHC RDW MCV MCH Lymph % (Auto) [place] % (Auto) [place] # Eos # Lymph # (Auto) [place] # (Auto) Eos # (Auto) Seg Neutrophils % Seg Neuts % (Manual) Baso # (Auto) Lymphocytes % (Manual) Monocytes % (Manual) Eosinophils % (Manual) Basophils % (Manual) Seg Neutrophils # Seg Neutrophils # Man Lymphocytes # (Manual) Monocytes # (Manual) Eosinophils # (Manual) Nucleated RBC % Basophils # (Manual) PT INR APTT Heparin Anti-Xa Level ABG pH POC ABG pO2 ABG pO2 ABG HCO3 ABG O2 Saturation ABG Base Excess POC ABG pCO2 ABG Hemoglobin ABG Oxyhemoglobin ABG Sodium ABG Chloride ABG Glucose Oxyhemoglobin Sodium Potassium Chloride Carbon Dioxide BUN Creatinine Glucose POC Glucose 128 H 126 H 128 H Lactic Acid Calcium Phosphorus Magnesium AST ALT Lactate Dehydrogenase Total Bilirubin Direct Bilirubin CK-MB (CK-2) C-Reactive Protein NT-Pro-B Natriuret Pep Total Protein Albumin Arterial Blood Glucose Urine WBC (Auto) Urine Creatinine 01/19/20 01/19/20 01/19/20 05:39 12:33 17:36 WBC RBC Hgb Hct MCHC RDW MCV MCH Lymph % (Auto) [place] % (Auto) [place] # Eos # Lymph # (Auto) [place] # (Auto) Eos # (Auto) Seg Neutrophils % Seg Neuts % (Manual) Baso # (Auto) Lymphocytes % (Manual) Monocytes % (Manual) Eosinophils % (Manual) Basophils % (Manual) Seg Neutrophils # Seg Neutrophils # Man Lymphocytes # (Manual) Monocytes # (Manual) Eosinophils # (Manual) Nucleated RBC % Basophils # (Manual) PT INR APTT Heparin Anti-Xa Level ABG pH POC ABG pO2 ABG pO2 ABG HCO3 ABG O2 Saturation ABG Base Excess POC ABG pCO2 ABG Hemoglobin ABG Oxyhemoglobin ABG Sodium ABG Chloride ABG Glucose Oxyhemoglobin Sodium Potassium Chloride Carbon Dioxide BUN Creatinine Glucose POC Glucose 164 H 171 H 152 H Lactic Acid Calcium Phosphorus Magnesium AST ALT Lactate Dehydrogenase Total Bilirubin Direct Bilirubin CK-MB (CK-2) C-Reactive Protein NT-Pro-B Natriuret Pep Total Protein Albumin Arterial Blood Glucose Urine WBC (Auto) Urine Creatinine 01/20/20 01/20/20 01/20/20 00:12 05:20 05:35 WBC RBC Hgb 9.2 L Hct 29.4 L MCHC 31 L RDW 17.9 H MCV 81 L MCH 25 L Lymph % (Auto) [place] % (Auto) [place] # Eos # Lymph # (Auto) [place] # (Auto) Eos # (Auto) Seg Neutrophils % Seg Neuts % (Manual) Baso # (Auto) Lymphocytes % (Manual) Monocytes % (Manual) Eosinophils % (Manual) Basophils % (Manual) Seg Neutrophils # Seg Neutrophils # Man Lymphocytes # (Manual) Monocytes # (Manual) Eosinophils # (Manual) Nucleated RBC % Basophils # (Manual) PT INR APTT Heparin Anti-Xa Level ABG pH POC ABG pO2 ABG pO2 ABG HCO3 ABG O2 Saturation ABG Base Excess POC ABG pCO2 ABG Hemoglobin ABG Oxyhemoglobin ABG Sodium ABG Chloride ABG Glucose Oxyhemoglobin Sodium Potassium Chloride Carbon Dioxide BUN Creatinine Glucose POC Glucose 120 H 136 H Lactic Acid Calcium Phosphorus Magnesium AST ALT Lactate Dehydrogenase Total Bilirubin Direct Bilirubin CK-MB (CK-2) C-Reactive Protein NT-Pro-B Natriuret Pep Total Protein Albumin Arterial Blood Glucose Urine WBC (Auto) Urine Creatinine 01/20/20 01/20/20 01/20/20 05:40 11:58 14:55 WBC RBC Hgb 9.0 L Hct 28.3 L MCHC RDW MCV MCH Lymph % (Auto) [place] % (Auto) [place] # Eos # Lymph # (Auto) [place] # (Auto) Eos # (Auto) Seg Neutrophils % Seg Neuts % (Manual) Baso # (Auto) Lymphocytes % (Manual) Monocytes % (Manual) Eosinophils % (Manual) Basophils % (Manual) Seg Neutrophils # Seg Neutrophils # Man Lymphocytes # (Manual) Monocytes # (Manual) Eosinophils # (Manual) Nucleated RBC % Basophils # (Manual) PT INR APTT Heparin Anti-Xa Level ABG pH POC ABG pO2 ABG pO2 ABG HCO3 ABG O2 Saturation ABG Base Excess POC ABG pCO2 ABG Hemoglobin ABG Oxyhemoglobin ABG Sodium ABG Chloride ABG Glucose Oxyhemoglobin Sodium Potassium Chloride Carbon Dioxide 32 H BUN 22 H Creatinine 0.7 L Glucose 128 H POC Glucose 152 H Lactic Acid Calcium Phosphorus Magnesium AST ALT Lactate Dehydrogenase Total Bilirubin Direct Bilirubin CK-MB (CK-2) C-Reactive Protein NT-Pro-B Natriuret Pep Total Protein Albumin Arterial Blood Glucose Urine WBC (Auto) Urine Creatinine 01/20/20 01/20/20 01/20/20 14:55 18:14 21:35 WBC RBC Hgb Hct MCHC RDW MCV MCH Lymph % (Auto) [place] % (Auto) [place] # Eos # Lymph # (Auto) [place] # (Auto) Eos # (Auto) Seg Neutrophils % Seg Neuts % (Manual) Baso # (Auto) Lymphocytes % (Manual) Monocytes % (Manual) Eosinophils % (Manual) Basophils % (Manual) Seg Neutrophils # Seg Neutrophils # Man Lymphocytes # (Manual) Monocytes # (Manual) Eosinophils # (Manual) Nucleated RBC % Basophils # (Manual) PT 20.4 H INR 1.72 H APTT 40.6 H Heparin Anti-Xa Level > 2.00 H ABG pH POC ABG pO2 ABG pO2 ABG HCO3 ABG O2 Saturation ABG Base Excess POC ABG pCO2 ABG Hemoglobin ABG Oxyhemoglobin ABG Sodium ABG Chloride ABG Glucose Oxyhemoglobin Sodium Potassium Chloride Carbon Dioxide BUN Creatinine Glucose POC Glucose 150 H Lactic Acid Calcium Phosphorus Magnesium AST ALT Lactate Dehydrogenase Total Bilirubin Direct Bilirubin CK-MB (CK-2) C-Reactive Protein NT-Pro-B Natriuret Pep Total Protein Albumin Arterial Blood Glucose Urine WBC (Auto) Urine Creatinine 01/21/20 01/21/20 01/21/20 00:30 05:47 05:59 WBC RBC Hgb Hct MCHC RDW MCV MCH Lymph % (Auto) [place] % (Auto) [place] # Eos # Lymph # (Auto) [place] # (Auto) Eos # (Auto) Seg Neutrophils % Seg Neuts % (Manual) Baso # (Auto) Lymphocytes % (Manual) Monocytes % (Manual) Eosinophils % (Manual) Basophils % (Manual) Seg Neutrophils # Seg Neutrophils # Man Lymphocytes # (Manual) Monocytes # (Manual) Eosinophils # (Manual) Nucleated RBC % Basophils # (Manual) PT INR APTT Heparin Anti-Xa Level 1.93 H ABG pH POC ABG pO2 ABG pO2 ABG HCO3 ABG O2 Saturation ABG Base Excess POC ABG pCO2 ABG Hemoglobin ABG Oxyhemoglobin ABG Sodium ABG Chloride ABG Glucose Oxyhemoglobin Sodium Potassium Chloride Carbon Dioxide BUN Creatinine Glucose POC Glucose 126 H 148 H Lactic Acid Calcium Phosphorus Magnesium AST ALT Lactate Dehydrogenase Total Bilirubin Direct Bilirubin CK-MB (CK-2) C-Reactive Protein NT-Pro-B Natriuret Pep Total Protein Albumin Arterial Blood Glucose Urine WBC (Auto) Urine Creatinine 01/21/20 01/21/20 01/21/20 12:32 18:20 23:54 WBC RBC Hgb Hct MCHC RDW MCV MCH Lymph % (Auto) [place] % (Auto) [place] # Eos # Lymph # (Auto) [place] # (Auto) Eos # (Auto) Seg Neutrophils % Seg Neuts % (Manual) Baso # (Auto) Lymphocytes % (Manual) Monocytes % (Manual) Eosinophils % (Manual) Basophils % (Manual) Seg Neutrophils # Seg Neutrophils # Man Lymphocytes # (Manual) Monocytes # (Manual) Eosinophils # (Manual) Nucleated RBC % Basophils # (Manual) PT INR APTT Heparin Anti-Xa Level 1.28 H ABG pH POC ABG pO2 ABG pO2 ABG HCO3 ABG O2 Saturation ABG Base Excess POC ABG pCO2 ABG Hemoglobin ABG Oxyhemoglobin ABG Sodium ABG Chloride ABG Glucose Oxyhemoglobin Sodium Potassium Chloride Carbon Dioxide BUN Creatinine Glucose POC Glucose 112 H 146 H Lactic Acid Calcium Phosphorus Magnesium AST ALT Lactate Dehydrogenase Total Bilirubin Direct Bilirubin CK-MB (CK-2) C-Reactive Protein NT-Pro-B Natriuret Pep Total Protein Albumin Arterial Blood Glucose Urine WBC (Auto) Urine Creatinine 01/22/20 01/22/20 01/22/20 04:45 04:45 05:48 WBC RBC Hgb 9.3 L Hct 29.0 L MCHC RDW MCV MCH Lymph % (Auto) [place] % (Auto) [place] # Eos # Lymph # (Auto) [place] # (Auto) Eos # (Auto) Seg Neutrophils % Seg Neuts % (Manual) Baso # (Auto) Lymphocytes % (Manual) Monocytes % (Manual) Eosinophils % (Manual) Basophils % (Manual) Seg Neutrophils # Seg Neutrophils # Man Lymphocytes # (Manual) Monocytes # (Manual) Eosinophils # (Manual) Nucleated RBC % Basophils # (Manual) PT INR APTT Heparin Anti-Xa Level 1.34 H ABG pH POC ABG pO2 ABG pO2 ABG HCO3 ABG O2 Saturation ABG Base Excess POC ABG pCO2 ABG Hemoglobin ABG Oxyhemoglobin ABG Sodium ABG Chloride ABG Glucose Oxyhemoglobin Sodium Potassium Chloride Carbon Dioxide BUN Creatinine Glucose POC Glucose 142 H Lactic Acid Calcium Phosphorus Magnesium AST ALT Lactate Dehydrogenase Total Bilirubin Direct Bilirubin CK-MB (CK-2) C-Reactive Protein NT-Pro-B Natriuret Pep Total Protein Albumin Arterial Blood Glucose Urine WBC (Auto) Urine Creatinine 01/22/20 01/22/20 01/22/20 08:09 08:22 09:58 WBC RBC Hgb Hct MCHC RDW MCV MCH Lymph % (Auto) [place] % (Auto) [place] # Eos # Lymph # (Auto) [place] # (Auto) Eos # (Auto) Seg Neutrophils % Seg Neuts % (Manual) Baso # (Auto) Lymphocytes % (Manual) Monocytes % (Manual) Eosinophils % (Manual) Basophils % (Manual) Seg Neutrophils # Seg Neutrophils # Man Lymphocytes # (Manual) Monocytes # (Manual) Eosinophils # (Manual) Nucleated RBC % Basophils # (Manual) PT 16.9 H INR 1.34 H APTT Heparin Anti-Xa Level ABG pH POC ABG pO2 ABG pO2 ABG HCO3 ABG O2 Saturation ABG Base Excess POC ABG pCO2 ABG Hemoglobin ABG Oxyhemoglobin ABG Sodium ABG Chloride ABG Glucose Oxyhemoglobin Sodium Potassium Chloride 97.8 L Carbon Dioxide BUN 29 H Creatinine Glucose 128 H POC Glucose 131 H Lactic Acid Calcium Phosphorus Magnesium AST ALT Lactate Dehydrogenase Total Bilirubin Direct Bilirubin CK-MB (CK-2) C-Reactive Protein NT-Pro-B Natriuret Pep Total Protein Albumin Arterial Blood Glucose Urine WBC (Auto) Urine Creatinine 01/22/20 01/22/20 01/22/20 12:44 16:13 18:18 WBC RBC Hgb Hct MCHC RDW MCV MCH Lymph % (Auto) [place] % (Auto) [place] # Eos # Lymph # (Auto) [place] # (Auto) Eos # (Auto) Seg Neutrophils % Seg Neuts % (Manual) Baso # (Auto) Lymphocytes % (Manual) Monocytes % (Manual) Eosinophils % (Manual) Basophils % (Manual) Seg Neutrophils # Seg Neutrophils # Man Lymphocytes # (Manual) Monocytes # (Manual) Eosinophils # (Manual) Nucleated RBC % Basophils # (Manual) PT INR APTT Heparin Anti-Xa Level ABG pH POC ABG pO2 ABG pO2 ABG HCO3 ABG O2 Saturation ABG Base Excess POC ABG pCO2 ABG Hemoglobin ABG Oxyhemoglobin ABG Sodium ABG Chloride ABG Glucose Oxyhemoglobin Sodium Potassium Chloride Carbon Dioxide BUN Creatinine Glucose POC Glucose 156 H 133 H 155 H Lactic Acid Calcium Phosphorus Magnesium AST ALT Lactate Dehydrogenase Total Bilirubin Direct Bilirubin CK-MB (CK-2) C-Reactive Protein NT-Pro-B Natriuret Pep Total Protein Albumin Arterial Blood Glucose Urine WBC (Auto) Urine Creatinine 01/22/20 01/23/20 01/23/20 23:22 05:37 12:59 WBC RBC Hgb Hct MCHC RDW MCV MCH Lymph % (Auto) [place] % (Auto) [place] # Eos # Lymph # (Auto) [place] # (Auto) Eos # (Auto) Seg Neutrophils % Seg Neuts % (Manual) Baso # (Auto) Lymphocytes % (Manual) Monocytes % (Manual) Eosinophils % (Manual) Basophils % (Manual) Seg Neutrophils # Seg Neutrophils # Man Lymphocytes # (Manual) Monocytes # (Manual) Eosinophils # (Manual) Nucleated RBC % Basophils # (Manual) PT INR APTT Heparin Anti-Xa Level ABG pH POC ABG pO2 ABG pO2 ABG HCO3 ABG O2 Saturation ABG Base Excess POC ABG pCO2 ABG Hemoglobin ABG Oxyhemoglobin ABG Sodium ABG Chloride ABG Glucose Oxyhemoglobin Sodium Potassium Chloride Carbon Dioxide BUN Creatinine Glucose POC Glucose 148 H 163 H 175 H Lactic Acid Calcium Phosphorus Magnesium AST ALT Lactate Dehydrogenase Total Bilirubin Direct Bilirubin CK-MB (CK-2) C-Reactive Protein NT-Pro-B Natriuret Pep Total Protein Albumin Arterial Blood Glucose Urine WBC (Auto) Urine Creatinine 01/23/20 01/23/20 01/24/20 17:28 23:56 04:30 WBC RBC 3.46 L Hgb 8.8 L Hct 27.8 L MCHC RDW 18.2 H MCV 81 L MCH 25 L Lymph % (Auto) [place] % (Auto) 7.8 H [place] # Eos # Lymph # (Auto) [place] # (Auto) Eos # (Auto) Seg Neutrophils % Seg Neuts % (Manual) Baso # (Auto) Lymphocytes % (Manual) Monocytes % (Manual) Eosinophils % (Manual) Basophils % (Manual) Seg Neutrophils # Seg Neutrophils # Man Lymphocytes # (Manual) Monocytes # (Manual) Eosinophils # (Manual) Nucleated RBC % Basophils # (Manual) PT INR APTT Heparin Anti-Xa Level ABG pH POC ABG pO2 ABG pO2 ABG HCO3 ABG O2 Saturation ABG Base Excess POC ABG pCO2 ABG Hemoglobin ABG Oxyhemoglobin ABG Sodium ABG Chloride ABG Glucose Oxyhemoglobin Sodium Potassium Chloride Carbon Dioxide BUN Creatinine Glucose POC Glucose 165 H 177 H Lactic Acid Calcium Phosphorus Magnesium AST ALT Lactate Dehydrogenase Total Bilirubin Direct Bilirubin CK-MB (CK-2) C-Reactive Protein NT-Pro-B Natriuret Pep Total Protein Albumin Arterial Blood Glucose Urine WBC (Auto) Urine Creatinine 01/24/20 01/24/20 01/24/20 04:30 07:18 12:06 WBC RBC Hgb Hct MCHC RDW MCV MCH Lymph % (Auto) [place] % (Auto) [place] # Eos # Lymph # (Auto) [place] # (Auto) Eos # (Auto) Seg Neutrophils % Seg Neuts % (Manual) Baso # (Auto) Lymphocytes % (Manual) Monocytes % (Manual) Eosinophils % (Manual) Basophils % (Manual) Seg Neutrophils # Seg Neutrophils # Man Lymphocytes # (Manual) Monocytes # (Manual) Eosinophils # (Manual) Nucleated RBC % Basophils # (Manual) PT INR APTT Heparin Anti-Xa Level ABG pH POC ABG pO2 ABG pO2 ABG HCO3 ABG O2 Saturation ABG Base Excess POC ABG pCO2 ABG Hemoglobin ABG Oxyhemoglobin ABG Sodium ABG Chloride ABG Glucose Oxyhemoglobin Sodium Potassium Chloride 97.9 L Carbon Dioxide BUN 31 H Creatinine Glucose 146 H POC Glucose 151 H 133 H Lactic Acid Calcium Phosphorus Magnesium AST ALT Lactate Dehydrogenase Total Bilirubin Direct Bilirubin CK-MB (CK-2) C-Reactive Protein NT-Pro-B Natriuret Pep Total Protein Albumin Arterial Blood Glucose Urine WBC (Auto) Urine Creatinine 01/24/20 01/25/20 01/25/20 17:36 00:08 04:25 WBC RBC 3.50 L Hgb 8.7 L Hct 27.9 L MCHC 31 L RDW 18.2 H MCV 80 L MCH 25 L Lymph % (Auto) [place] % (Auto) 8.5 H [place] # Eos # Lymph # (Auto) [place] # (Auto) Eos # (Auto) Seg Neutrophils % Seg Neuts % (Manual) Baso # (Auto) Lymphocytes % (Manual) Monocytes % (Manual) Eosinophils % (Manual) Basophils % (Manual) Seg Neutrophils # Seg Neutrophils # Man Lymphocytes # (Manual) Monocytes # (Manual) Eosinophils # (Manual) Nucleated RBC % Basophils # (Manual) PT INR APTT Heparin Anti-Xa Level ABG pH POC ABG pO2 ABG pO2 ABG HCO3 ABG O2 Saturation ABG Base Excess POC ABG pCO2 ABG Hemoglobin ABG Oxyhemoglobin ABG Sodium ABG Chloride ABG Glucose Oxyhemoglobin Sodium Potassium Chloride Carbon Dioxide BUN Creatinine Glucose POC Glucose 133 H 129 H Lactic Acid Calcium Phosphorus Magnesium AST ALT Lactate Dehydrogenase Total Bilirubin Direct Bilirubin CK-MB (CK-2) C-Reactive Protein NT-Pro-B Natriuret Pep Total Protein Albumin Arterial Blood Glucose Urine WBC (Auto) Urine Creatinine 01/25/20 01/25/20 01/25/20 04:25 05:38 11:52 WBC RBC Hgb Hct MCHC RDW MCV MCH Lymph % (Auto) [place] % (Auto) [place] # Eos # Lymph # (Auto) [place] # (Auto) Eos # (Auto) Seg Neutrophils % Seg Neuts % (Manual) Baso # (Auto) Lymphocytes % (Manual) Monocytes % (Manual) Eosinophils % (Manual) Basophils % (Manual) Seg Neutrophils # Seg Neutrophils # Man Lymphocytes # (Manual) Monocytes # (Manual) Eosinophils # (Manual) Nucleated RBC % Basophils # (Manual) PT INR APTT Heparin Anti-Xa Level ABG pH POC ABG pO2 ABG pO2 ABG HCO3 ABG O2 Saturation ABG Base Excess POC ABG pCO2 ABG Hemoglobin ABG Oxyhemoglobin ABG Sodium ABG Chloride ABG Glucose Oxyhemoglobin Sodium Potassium Chloride Carbon Dioxide BUN 30 H Creatinine Glucose 134 H POC Glucose 129 H 134 H Lactic Acid Calcium Phosphorus Magnesium AST ALT Lactate Dehydrogenase Total Bilirubin Direct Bilirubin CK-MB (CK-2) C-Reactive Protein NT-Pro-B Natriuret Pep Total Protein Albumin Arterial Blood Glucose Urine WBC (Auto) Urine Creatinine 01/25/20 01/25/20 01/26/20 17:13 21:02 00:59 WBC RBC Hgb Hct MCHC RDW MCV MCH Lymph % (Auto) [place] % (Auto) [place] # Eos # Lymph # (Auto) [place] # (Auto) Eos # (Auto) Seg Neutrophils % Seg Neuts % (Manual) Baso # (Auto) Lymphocytes % (Manual) Monocytes % (Manual) Eosinophils % (Manual) Basophils % (Manual) Seg Neutrophils # Seg Neutrophils # Man Lymphocytes # (Manual) Monocytes # (Manual) Eosinophils # (Manual) Nucleated RBC % Basophils # (Manual) PT INR APTT Heparin Anti-Xa Level ABG pH POC ABG pO2 ABG pO2 57.5 L ABG HCO3 31.7 H ABG O2 Saturation 90.3 L ABG Base Excess 6.6 H POC ABG pCO2 ABG Hemoglobin 13.0 L ABG Oxyhemoglobin ABG Sodium ABG Chloride ABG Glucose Oxyhemoglobin 87.5 L Sodium Potassium Chloride Carbon Dioxide BUN Creatinine Glucose POC Glucose 124 H 196 H Lactic Acid Calcium Phosphorus Magnesium AST ALT Lactate Dehydrogenase Total Bilirubin Direct Bilirubin CK-MB (CK-2) C-Reactive Protein NT-Pro-B Natriuret Pep Total Protein Albumin Arterial Blood Glucose Urine WBC (Auto) Urine Creatinine 01/26/20 01/26/20 01/26/20 03:20 05:46 12:46 WBC RBC Hgb 9.2 L Hct 29.4 L MCHC RDW MCV MCH Lymph % (Auto) [place] % (Auto) [place] # Eos # Lymph # (Auto) [place] # (Auto) Eos # (Auto) Seg Neutrophils % Seg Neuts % (Manual) Baso # (Auto) Lymphocytes % (Manual) Monocytes % (Manual) Eosinophils % (Manual) Basophils % (Manual) Seg Neutrophils # Seg Neutrophils # Man Lymphocytes # (Manual) Monocytes # (Manual) Eosinophils # (Manual) Nucleated RBC % Basophils # (Manual) PT INR APTT Heparin Anti-Xa Level ABG pH POC ABG pO2 ABG pO2 ABG HCO3 ABG O2 Saturation ABG Base Excess POC ABG pCO2 ABG Hemoglobin ABG Oxyhemoglobin ABG Sodium ABG Chloride ABG Glucose Oxyhemoglobin Sodium Potassium Chloride Carbon Dioxide BUN Creatinine Glucose POC Glucose 141 H 122 H Lactic Acid Calcium Phosphorus Magnesium AST ALT Lactate Dehydrogenase Total Bilirubin Direct Bilirubin CK-MB (CK-2) C-Reactive Protein NT-Pro-B Natriuret Pep Total Protein Albumin Arterial Blood Glucose Urine WBC (Auto) Urine Creatinine 01/26/20 01/26/20 01/27/20 18:03 23:55 04:47 WBC RBC Hgb Hct MCHC RDW MCV MCH Lymph % (Auto) [place] % (Auto) [place] # Eos # Lymph # (Auto) [place] # (Auto) Eos # (Auto) Seg Neutrophils % Seg Neuts % (Manual) Baso # (Auto) Lymphocytes % (Manual) Monocytes % (Manual) Eosinophils % (Manual) Basophils % (Manual) Seg Neutrophils # Seg Neutrophils # Man Lymphocytes # (Manual) Monocytes # (Manual) Eosinophils # (Manual) Nucleated RBC % Basophils # (Manual) PT INR APTT Heparin Anti-Xa Level ABG pH POC ABG pO2 ABG pO2 ABG HCO3 ABG O2 Saturation ABG Base Excess POC ABG pCO2 ABG Hemoglobin ABG Oxyhemoglobin ABG Sodium ABG Chloride ABG Glucose Oxyhemoglobin Sodium Potassium Chloride Carbon Dioxide BUN 30 H Creatinine 0.7 L Glucose 135 H POC Glucose 142 H 159 H Lactic Acid Calcium Phosphorus Magnesium AST ALT Lactate Dehydrogenase Total Bilirubin Direct Bilirubin CK-MB (CK-2) C-Reactive Protein NT-Pro-B Natriuret Pep Total Protein Albumin Arterial Blood Glucose Urine WBC (Auto) Urine Creatinine 01/27/20 01/27/20 01/27/20 05:43 12:06 17:16 WBC RBC Hgb Hct MCHC RDW MCV MCH Lymph % (Auto) [place] % (Auto) [place] # Eos # Lymph # (Auto) [place] # (Auto) Eos # (Auto) Seg Neutrophils % Seg Neuts % (Manual) Baso # (Auto) Lymphocytes % (Manual) Monocytes % (Manual) Eosinophils % (Manual) Basophils % (Manual) Seg Neutrophils # Seg Neutrophils # Man Lymphocytes # (Manual) Monocytes # (Manual) Eosinophils # (Manual) Nucleated RBC % Basophils # (Manual) PT INR APTT Heparin Anti-Xa Level ABG pH POC ABG pO2 ABG pO2 ABG HCO3 ABG O2 Saturation ABG Base Excess POC ABG pCO2 ABG Hemoglobin ABG Oxyhemoglobin ABG Sodium ABG Chloride ABG Glucose Oxyhemoglobin Sodium Potassium Chloride Carbon Dioxide BUN Creatinine Glucose POC Glucose 143 H 142 H 128 H Lactic Acid Calcium Phosphorus Magnesium AST ALT Lactate Dehydrogenase Total Bilirubin Direct Bilirubin CK-MB (CK-2) C-Reactive Protein NT-Pro-B Natriuret Pep Total Protein Albumin Arterial Blood Glucose Urine WBC (Auto) Urine Creatinine 01/27/20 01/28/20 01/28/20 23:55 04:37 05:55 WBC RBC Hgb 9.4 L Hct 29.9 L MCHC RDW MCV MCH Lymph % (Auto) [place] % (Auto) [place] # Eos # Lymph # (Auto) [place] # (Auto) Eos # (Auto) Seg Neutrophils % Seg Neuts % (Manual) Baso # (Auto) Lymphocytes % (Manual) Monocytes % (Manual) Eosinophils % (Manual) Basophils % (Manual) Seg Neutrophils # Seg Neutrophils # Man Lymphocytes # (Manual) Monocytes # (Manual) Eosinophils # (Manual) Nucleated RBC % Basophils # (Manual) PT INR APTT Heparin Anti-Xa Level ABG pH POC ABG pO2 ABG pO2 ABG HCO3 ABG O2 Saturation ABG Base Excess POC ABG pCO2 ABG Hemoglobin ABG Oxyhemoglobin ABG Sodium ABG Chloride ABG Glucose Oxyhemoglobin Sodium Potassium Chloride Carbon Dioxide BUN Creatinine Glucose POC Glucose 166 H 169 H Lactic Acid Calcium Phosphorus Magnesium AST ALT Lactate Dehydrogenase Total Bilirubin Direct Bilirubin CK-MB (CK-2) C-Reactive Protein NT-Pro-B Natriuret Pep Total Protein Albumin Arterial Blood Glucose Urine WBC (Auto) Urine Creatinine 01/28/20 01/28/20 01/28/20 11:58 17:26 23:46 WBC RBC Hgb Hct MCHC RDW MCV MCH Lymph % (Auto) [place] % (Auto) [place] # Eos # Lymph # (Auto) [place] # (Auto) Eos # (Auto) Seg Neutrophils % Seg Neuts % (Manual) Baso # (Auto) Lymphocytes % (Manual) Monocytes % (Manual) Eosinophils % (Manual) Basophils % (Manual) Seg Neutrophils # Seg Neutrophils # Man Lymphocytes # (Manual) Monocytes # (Manual) Eosinophils # (Manual) Nucleated RBC % Basophils # (Manual) PT INR APTT Heparin Anti-Xa Level ABG pH POC ABG pO2 ABG pO2 ABG HCO3 ABG O2 Saturation ABG Base Excess POC ABG pCO2 ABG Hemoglobin ABG Oxyhemoglobin ABG Sodium ABG Chloride ABG Glucose Oxyhemoglobin Sodium Potassium Chloride Carbon Dioxide BUN Creatinine Glucose POC Glucose 130 H 126 H 150 H Lactic Acid Calcium Phosphorus Magnesium AST ALT Lactate Dehydrogenase Total Bilirubin Direct Bilirubin CK-MB (CK-2) C-Reactive Protein NT-Pro-B Natriuret Pep Total Protein Albumin Arterial Blood Glucose Urine WBC (Auto) Urine Creatinine 01/29/20 01/29/20 01/29/20 04:55 06:00 12:28 WBC RBC Hgb Hct MCHC RDW MCV MCH Lymph % (Auto) [place] % (Auto) [place] # Eos # Lymph # (Auto) [place] # (Auto) Eos # (Auto) Seg Neutrophils % Seg Neuts % (Manual) Baso # (Auto) Lymphocytes % (Manual) Monocytes % (Manual) Eosinophils % (Manual) Basophils % (Manual) Seg Neutrophils # Seg Neutrophils # Man Lymphocytes # (Manual) Monocytes # (Manual) Eosinophils # (Manual) Nucleated RBC % Basophils # (Manual) PT INR APTT Heparin Anti-Xa Level ABG pH POC ABG pO2 ABG pO2 ABG HCO3 ABG O2 Saturation ABG Base Excess POC ABG pCO2 ABG Hemoglobin ABG Oxyhemoglobin ABG Sodium ABG Chloride ABG Glucose Oxyhemoglobin Sodium Potassium Chloride Carbon Dioxide 34 H BUN Creatinine 0.6 L Glucose 152 H POC Glucose 157 H 156 H Lactic Acid Calcium Phosphorus Magnesium AST ALT Lactate Dehydrogenase Total Bilirubin Direct Bilirubin CK-MB (CK-2) C-Reactive Protein NT-Pro-B Natriuret Pep Total Protein Albumin Arterial Blood Glucose Urine WBC (Auto) Urine Creatinine 01/29/20 01/30/20 01/30/20 19:06 00:29 05:39 WBC RBC Hgb Hct MCHC RDW MCV MCH Lymph % (Auto) [place] % (Auto) [place] # Eos # Lymph # (Auto) [place] # (Auto) Eos # (Auto) Seg Neutrophils % Seg Neuts % (Manual) Baso # (Auto) Lymphocytes % (Manual) Monocytes % (Manual) Eosinophils % (Manual) Basophils % (Manual) Seg Neutrophils # Seg Neutrophils # Man Lymphocytes # (Manual) Monocytes # (Manual) Eosinophils # (Manual) Nucleated RBC % Basophils # (Manual) PT INR APTT Heparin Anti-Xa Level ABG pH POC ABG pO2 ABG pO2 ABG HCO3 ABG O2 Saturation ABG Base Excess POC ABG pCO2 ABG Hemoglobin ABG Oxyhemoglobin ABG Sodium ABG Chloride ABG Glucose Oxyhemoglobin Sodium Potassium Chloride Carbon Dioxide BUN Creatinine Glucose POC Glucose 152 H 132 H 159 H Lactic Acid Calcium Phosphorus Magnesium AST ALT Lactate Dehydrogenase Total Bilirubin Direct Bilirubin CK-MB (CK-2) C-Reactive Protein NT-Pro-B Natriuret Pep Total Protein Albumin Arterial Blood Glucose Urine WBC (Auto) Urine Creatinine 01/30/20 01/30/20 01/30/20 12:27 17:42 23:28 WBC RBC Hgb Hct MCHC RDW MCV MCH Lymph % (Auto) [place] % (Auto) [place] # Eos # Lymph # (Auto) [place] # (Auto) Eos # (Auto) Seg Neutrophils % Seg Neuts % (Manual) Baso # (Auto) Lymphocytes % (Manual) Monocytes % (Manual) Eosinophils % (Manual) Basophils % (Manual) Seg Neutrophils # Seg Neutrophils # Man Lymphocytes # (Manual) Monocytes # (Manual) Eosinophils # (Manual) Nucleated RBC % Basophils # (Manual) PT INR APTT Heparin Anti-Xa Level ABG pH POC ABG pO2 ABG pO2 ABG HCO3 ABG O2 Saturation ABG Base Excess POC ABG pCO2 ABG Hemoglobin ABG Oxyhemoglobin ABG Sodium ABG Chloride ABG Glucose Oxyhemoglobin Sodium Potassium Chloride Carbon Dioxide BUN Creatinine Glucose POC Glucose 151 H 144 H 164 H Lactic Acid Calcium Phosphorus Magnesium AST ALT Lactate Dehydrogenase Total Bilirubin Direct Bilirubin CK-MB (CK-2) C-Reactive Protein NT-Pro-B Natriuret Pep Total Protein Albumin Arterial Blood Glucose Urine WBC (Auto) Urine Creatinine 01/31/20 01/31/20 01/31/20 05:51 11:51 18:06 WBC RBC Hgb Hct MCHC RDW MCV MCH Lymph % (Auto) [place] % (Auto) [place] # Eos # Lymph # (Auto) [place] # (Auto) Eos # (Auto) Seg Neutrophils % Seg Neuts % (Manual) Baso # (Auto) Lymphocytes % (Manual) Monocytes % (Manual) Eosinophils % (Manual) Basophils % (Manual) Seg Neutrophils # Seg Neutrophils # Man Lymphocytes # (Manual) Monocytes # (Manual) Eosinophils # (Manual) Nucleated RBC % Basophils # (Manual) PT INR APTT Heparin Anti-Xa Level ABG pH POC ABG pO2 ABG pO2 ABG HCO3 ABG O2 Saturation ABG Base Excess POC ABG pCO2 ABG Hemoglobin ABG Oxyhemoglobin ABG Sodium ABG Chloride ABG Glucose Oxyhemoglobin Sodium Potassium Chloride Carbon Dioxide BUN Creatinine Glucose POC Glucose 131 H 167 H 210 H Lactic Acid Calcium Phosphorus Magnesium AST ALT Lactate Dehydrogenase Total Bilirubin Direct Bilirubin CK-MB (CK-2) C-Reactive Protein NT-Pro-B Natriuret Pep Total Protein Albumin Arterial Blood Glucose Urine WBC (Auto) Urine Creatinine 01/31/20 01/31/20 02/01/20 19:24 Unknown 00:34 WBC RBC Hgb Hct MCHC RDW MCV MCH Lymph % (Auto) [place] % (Auto) [place] # Eos # Lymph # (Auto) [place] # (Auto) Eos # (Auto) Seg Neutrophils % Seg Neuts % (Manual) Baso # (Auto) Lymphocytes % (Manual) Monocytes % (Manual) Eosinophils % (Manual) Basophils % (Manual) Seg Neutrophils # Seg Neutrophils # Man Lymphocytes # (Manual) Monocytes # (Manual) Eosinophils # (Manual) Nucleated RBC % Basophils # (Manual) PT INR APTT Heparin Anti-Xa Level ABG pH POC ABG pO2 ABG pO2 ABG HCO3 ABG O2 Saturation ABG Base Excess POC ABG pCO2 ABG Hemoglobin ABG Oxyhemoglobin ABG Sodium ABG Chloride ABG Glucose Oxyhemoglobin Sodium Potassium Chloride 95.3 L Carbon Dioxide 33 H BUN 36 H Creatinine Glucose 187 H POC Glucose 116 H Lactic Acid Calcium Phosphorus Magnesium AST ALT Lactate Dehydrogenase Total Bilirubin Direct Bilirubin CK-MB (CK-2) C-Reactive Protein NT-Pro-B Natriuret Pep Total Protein Albumin Arterial Blood Glucose Urine WBC (Auto) Urine Creatinine 57.4 H 02/01/20 02/01/20 02/01/20 05:24 10:40 12:29 WBC RBC Hgb Hct MCHC RDW MCV MCH Lymph % (Auto) [place] % (Auto) [place] # Eos # Lymph # (Auto) [place] # (Auto) Eos # (Auto) Seg Neutrophils % Seg Neuts % (Manual) Baso # (Auto) Lymphocytes % (Manual) Monocytes % (Manual) Eosinophils % (Manual) Basophils % (Manual) Seg Neutrophils # Seg Neutrophils # Man Lymphocytes # (Manual) Monocytes # (Manual) Eosinophils # (Manual) Nucleated RBC % Basophils # (Manual) PT INR APTT Heparin Anti-Xa Level ABG pH POC ABG pO2 ABG pO2 ABG HCO3 ABG O2 Saturation ABG Base Excess POC ABG pCO2 ABG Hemoglobin ABG Oxyhemoglobin ABG Sodium ABG Chloride ABG Glucose Oxyhemoglobin Sodium Potassium Chloride Carbon Dioxide BUN Creatinine Glucose POC Glucose 142 H 165 H 151 H Lactic Acid Calcium Phosphorus Magnesium AST ALT Lactate Dehydrogenase Total Bilirubin Direct Bilirubin CK-MB (CK-2) C-Reactive Protein NT-Pro-B Natriuret Pep Total Protein Albumin Arterial Blood Glucose Urine WBC (Auto) Urine Creatinine 02/01/20 02/01/20 02/02/20 17:16 23:23 06:36 WBC RBC Hgb Hct MCHC RDW MCV MCH Lymph % (Auto) [place] % (Auto) [place] # Eos # Lymph # (Auto) [place] # (Auto) Eos # (Auto) Seg Neutrophils % Seg Neuts % (Manual) Baso # (Auto) Lymphocytes % (Manual) Monocytes % (Manual) Eosinophils % (Manual) Basophils % (Manual) Seg Neutrophils # Seg Neutrophils # Man Lymphocytes # (Manual) Monocytes # (Manual) Eosinophils # (Manual) Nucleated RBC % Basophils # (Manual) PT INR APTT Heparin Anti-Xa Level ABG pH POC ABG pO2 ABG pO2 ABG HCO3 ABG O2 Saturation ABG Base Excess POC ABG pCO2 ABG Hemoglobin ABG Oxyhemoglobin ABG Sodium ABG Chloride ABG Glucose Oxyhemoglobin Sodium Potassium Chloride Carbon Dioxide BUN Creatinine Glucose POC Glucose 137 H 145 H 181 H Lactic Acid Calcium Phosphorus Magnesium AST ALT Lactate Dehydrogenase Total Bilirubin Direct Bilirubin CK-MB (CK-2) C-Reactive Protein NT-Pro-B Natriuret Pep Total Protein Albumin Arterial Blood Glucose Urine WBC (Auto) Urine Creatinine 02/02/20 02/02/20 02/02/20 10:01 12:05 17:54 WBC RBC Hgb Hct MCHC RDW MCV MCH Lymph % (Auto) [place] % (Auto) [place] # Eos # Lymph # (Auto) [place] # (Auto) Eos # (Auto) Seg Neutrophils % Seg Neuts % (Manual) Baso # (Auto) Lymphocytes % (Manual) Monocytes % (Manual) Eosinophils % (Manual) Basophils % (Manual) Seg Neutrophils # Seg Neutrophils # Man Lymphocytes # (Manual) Monocytes # (Manual) Eosinophils # (Manual) Nucleated RBC % Basophils # (Manual) PT INR APTT Heparin Anti-Xa Level ABG pH POC ABG pO2 ABG pO2 ABG HCO3 ABG O2 Saturation ABG Base Excess POC ABG pCO2 ABG Hemoglobin ABG Oxyhemoglobin ABG Sodium ABG Chloride ABG Glucose Oxyhemoglobin Sodium Potassium Chloride 95.3 L Carbon Dioxide BUN 44 H Creatinine Glucose 234 H POC Glucose 184 H 127 H Lactic Acid Calcium Phosphorus Magnesium AST 363 H ALT 457 H Lactate Dehydrogenase Total Bilirubin Direct Bilirubin CK-MB (CK-2) C-Reactive Protein NT-Pro-B Natriuret Pep Total Protein Albumin 3.0 L Arterial Blood Glucose Urine WBC (Auto) Urine Creatinine 02/02/20 02/03/20 02/03/20 23:47 05:32 07:04 WBC 13.0 H RBC Hgb 9.5 L Hct 30.8 L MCHC 31 L RDW 19.6 H MCV 81 L MCH 25 L Lymph % (Auto) [place] % (Auto) 9.4 H [place] # Eos # Lymph # (Auto) [place] # (Auto) 1.2 H Eos # (Auto) Seg Neutrophils % 72.3 H Seg Neuts % (Manual) Baso # (Auto) Lymphocytes % (Manual) Monocytes % (Manual) Eosinophils % (Manual) Basophils % (Manual) Seg Neutrophils # 9.4 H Seg Neutrophils # Man Lymphocytes # (Manual) Monocytes # (Manual) Eosinophils # (Manual) Nucleated RBC % Basophils # (Manual) PT INR APTT Heparin Anti-Xa Level ABG pH POC ABG pO2 ABG pO2 ABG HCO3 ABG O2 Saturation ABG Base Excess POC ABG pCO2 ABG Hemoglobin ABG Oxyhemoglobin ABG Sodium ABG Chloride ABG Glucose Oxyhemoglobin Sodium Potassium Chloride Carbon Dioxide BUN Creatinine Glucose POC Glucose 124 H 129 H Lactic Acid Calcium Phosphorus Magnesium AST ALT Lactate Dehydrogenase Total Bilirubin Direct Bilirubin CK-MB (CK-2) C-Reactive Protein NT-Pro-B Natriuret Pep Total Protein Albumin Arterial Blood Glucose Urine WBC (Auto) Urine Creatinine 02/03/20 02/03/20 02/03/20 07:04 11:32 12:49 WBC RBC Hgb Hct MCHC RDW MCV MCH Lymph % (Auto) [place] % (Auto) [place] # Eos # Lymph # (Auto) [place] # (Auto) Eos # (Auto) Seg Neutrophils % Seg Neuts % (Manual) Baso # (Auto) Lymphocytes % (Manual) Monocytes % (Manual) Eosinophils % (Manual) Basophils % (Manual) Seg Neutrophils # Seg Neutrophils # Man Lymphocytes # (Manual) Monocytes # (Manual) Eosinophils # (Manual) Nucleated RBC % Basophils # (Manual) PT INR APTT Heparin Anti-Xa Level ABG pH POC ABG pO2 ABG pO2 ABG HCO3 ABG O2 Saturation ABG Base Excess POC ABG pCO2 ABG Hemoglobin ABG Oxyhemoglobin ABG Sodium ABG Chloride ABG Glucose Oxyhemoglobin Sodium Potassium Chloride 97.9 L Carbon Dioxide 33 H BUN 39 H Creatinine Glucose 119 H POC Glucose 138 H Lactic Acid Calcium Phosphorus Magnesium 2.60 H AST ALT Lactate Dehydrogenase Total Bilirubin Direct Bilirubin CK-MB (CK-2) C-Reactive Protein NT-Pro-B Natriuret Pep Total Protein Albumin Arterial Blood Glucose Urine WBC (Auto) Urine Creatinine 02/03/20 02/04/20 02/04/20 18:28 16:24 16:24 WBC RBC 3.38 L Hgb 8.6 L Hct 26.9 L MCHC RDW 19.5 H MCV 80 L MCH 26 L Lymph % (Auto) [place] % (Auto) [place] # Eos # Lymph # (Auto) [place] # (Auto) Eos # (Auto) Seg Neutrophils % Seg Neuts % (Manual) Baso # (Auto) Lymphocytes % (Manual) Monocytes % (Manual) Eosinophils % (Manual) Basophils % (Manual) Seg Neutrophils # Seg Neutrophils # Man Lymphocytes # (Manual) Monocytes # (Manual) Eosinophils # (Manual) Nucleated RBC % Basophils # (Manual) PT INR APTT Heparin Anti-Xa Level ABG pH POC ABG pO2 ABG pO2 ABG HCO3 ABG O2 Saturation ABG Base Excess POC ABG pCO2 ABG Hemoglobin ABG Oxyhemoglobin ABG Sodium ABG Chloride ABG Glucose Oxyhemoglobin Sodium Potassium 3.4 L Chloride Carbon Dioxide 31 H BUN 37 H Creatinine Glucose 70 L POC Glucose 118 H Lactic Acid Calcium Phosphorus Magnesium AST 169 H ALT 394 H Lactate Dehydrogenase Total Bilirubin 1.50 H Direct Bilirubin CK-MB (CK-2) C-Reactive Protein NT-Pro-B Natriuret Pep Total Protein Albumin 2.9 L Arterial Blood Glucose Urine WBC (Auto) Urine Creatinine 02/05/20 02/05/20 02/05/20 00:41 06:37 17:14 WBC RBC Hgb Hct MCHC RDW MCV MCH Lymph % (Auto) [place] % (Auto) [place] # Eos # Lymph # (Auto) [place] # (Auto) Eos # (Auto) Seg Neutrophils % Seg Neuts % (Manual) Baso # (Auto) Lymphocytes % (Manual) Monocytes % (Manual) Eosinophils % (Manual) Basophils % (Manual) Seg Neutrophils # Seg Neutrophils # Man Lymphocytes # (Manual) Monocytes # (Manual) Eosinophils # (Manual) Nucleated RBC % Basophils # (Manual) PT INR APTT Heparin Anti-Xa Level ABG pH POC ABG pO2 ABG pO2 ABG HCO3 ABG O2 Saturation ABG Base Excess POC ABG pCO2 ABG Hemoglobin ABG Oxyhemoglobin ABG Sodium ABG Chloride ABG Glucose Oxyhemoglobin Sodium Potassium 3.1 L Chloride Carbon Dioxide 35 H BUN 32 H Creatinine 0.7 L Glucose POC Glucose 69 L 127 H Lactic Acid Calcium Phosphorus Magnesium AST 134 H ALT 352 H Lactate Dehydrogenase Total Bilirubin 1.60 H Direct Bilirubin CK-MB (CK-2) C-Reactive Protein NT-Pro-B Natriuret Pep Total Protein Albumin 2.9 L Arterial Blood Glucose Urine WBC (Auto) Urine Creatinine 02/05/20 02/06/20 02/06/20 23:43 05:32 08:01 WBC RBC Hgb Hct MCHC RDW MCV MCH Lymph % (Auto) [place] % (Auto) [place] # Eos # Lymph # (Auto) [place] # (Auto) Eos # (Auto) Seg Neutrophils % Seg Neuts % (Manual) Baso # (Auto) Lymphocytes % (Manual) Monocytes % (Manual) Eosinophils % (Manual) Basophils % (Manual) Seg Neutrophils # Seg Neutrophils # Man Lymphocytes # (Manual) Monocytes # (Manual) Eosinophils # (Manual) Nucleated RBC % Basophils # (Manual) PT INR APTT Heparin Anti-Xa Level ABG pH POC ABG pO2 ABG pO2 ABG HCO3 ABG O2 Saturation ABG Base Excess POC ABG pCO2 ABG Hemoglobin ABG Oxyhemoglobin ABG Sodium ABG Chloride ABG Glucose Oxyhemoglobin Sodium Potassium Chloride Carbon Dioxide BUN 40 H Creatinine Glucose 132 H POC Glucose 129 H 131 H Lactic Acid Calcium Phosphorus Magnesium AST ALT Lactate Dehydrogenase Total Bilirubin Direct Bilirubin CK-MB (CK-2) C-Reactive Protein NT-Pro-B Natriuret Pep Total Protein Albumin Arterial Blood Glucose Urine WBC (Auto) Urine Creatinine 02/06/20 02/06/20 02/06/20 11:51 16:28 17:32 WBC RBC Hgb Hct MCHC RDW MCV MCH Lymph % (Auto) [place] % (Auto) [place] # Eos # Lymph # (Auto) [place] # (Auto) Eos # (Auto) Seg Neutrophils % Seg Neuts % (Manual) Baso # (Auto) Lymphocytes % (Manual) Monocytes % (Manual) Eosinophils % (Manual) Basophils % (Manual) Seg Neutrophils # Seg Neutrophils # Man Lymphocytes # (Manual) Monocytes # (Manual) Eosinophils # (Manual) Nucleated RBC % Basophils # (Manual) PT INR APTT Heparin Anti-Xa Level ABG pH POC ABG pO2 ABG pO2 ABG HCO3 ABG O2 Saturation ABG Base Excess POC ABG pCO2 ABG Hemoglobin ABG Oxyhemoglobin ABG Sodium ABG Chloride ABG Glucose Oxyhemoglobin Sodium Potassium Chloride Carbon Dioxide BUN Creatinine Glucose POC Glucose 167 H 129 H Lactic Acid Calcium Phosphorus Magnesium AST 824 H ALT 948 H Lactate Dehydrogenase Total Bilirubin 1.70 H Direct Bilirubin 1.2 H CK-MB (CK-2) C-Reactive Protein NT-Pro-B Natriuret Pep Total Protein Albumin 2.9 L Arterial Blood Glucose Urine WBC (Auto) Urine Creatinine 02/07/20 02/07/20 02/07/20 00:11 04:57 04:57 WBC RBC Hgb 9.2 L Hct 29.7 L MCHC 31 L RDW 20.2 H MCV 80 L MCH 25 L Lymph % (Auto) [place] % (Auto) [place] # Eos # Lymph # (Auto) [place] # (Auto) Eos # (Auto) Seg Neutrophils % Seg Neuts % (Manual) Baso # (Auto) Lymphocytes % (Manual) Monocytes % (Manual) Eosinophils % (Manual) Basophils % (Manual) Seg Neutrophils # Seg Neutrophils # Man Lymphocytes # (Manual) Monocytes # (Manual) Eosinophils # (Manual) Nucleated RBC % Basophils # (Manual) PT INR APTT Heparin Anti-Xa Level ABG pH POC ABG pO2 ABG pO2 ABG HCO3 ABG O2 Saturation ABG Base Excess POC ABG pCO2 ABG Hemoglobin ABG Oxyhemoglobin ABG Sodium ABG Chloride ABG Glucose Oxyhemoglobin Sodium Potassium 3.4 L D Chloride Carbon Dioxide 32 H BUN 39 H Creatinine Glucose 106 H POC Glucose 121 H Lactic Acid Calcium Phosphorus Magnesium AST ALT Lactate Dehydrogenase Total Bilirubin Direct Bilirubin CK-MB (CK-2) C-Reactive Protein NT-Pro-B Natriuret Pep Total Protein Albumin Arterial Blood Glucose Urine WBC (Auto) Urine Creatinine 02/07/20 02/07/20 02/07/20 15:03 15:03 17:11 WBC RBC Hgb Hct MCHC RDW MCV MCH Lymph % (Auto) [place] % (Auto) [place] # Eos # Lymph # (Auto) [place] # (Auto) Eos # (Auto) Seg Neutrophils % Seg Neuts % (Manual) Baso # (Auto) Lymphocytes % (Manual) Monocytes % (Manual) Eosinophils % (Manual) Basophils % (Manual) Seg Neutrophils # Seg Neutrophils # Man Lymphocytes # (Manual) Monocytes # (Manual) Eosinophils # (Manual) Nucleated RBC % Basophils # (Manual) PT 27.0 H INR 2.46 H APTT Heparin Anti-Xa Level ABG pH POC ABG pO2 ABG pO2 ABG HCO3 ABG O2 Saturation ABG Base Excess POC ABG pCO2 ABG Hemoglobin ABG Oxyhemoglobin ABG Sodium ABG Chloride ABG Glucose Oxyhemoglobin Sodium Potassium Chloride Carbon Dioxide BUN Creatinine Glucose POC Glucose 109 H Lactic Acid Calcium Phosphorus Magnesium AST 424 H ALT 796 H Lactate Dehydrogenase Total Bilirubin 1.60 H Direct Bilirubin 1.2 H CK-MB (CK-2) C-Reactive Protein NT-Pro-B Natriuret Pep Total Protein Albumin 2.9 L Arterial Blood Glucose Urine WBC (Auto) Urine Creatinine 02/08/20 02/08/20 02/08/20 12:14 17:44 19:00 WBC RBC Hgb Hct MCHC RDW MCV MCH Lymph % (Auto) [place] % (Auto) [place] # Eos # Lymph # (Auto) [place] # (Auto) Eos # (Auto) Seg Neutrophils % Seg Neuts % (Manual) Baso # (Auto) Lymphocytes % (Manual) Monocytes % (Manual) Eosinophils % (Manual) Basophils % (Manual) Seg Neutrophils # Seg Neutrophils # Man Lymphocytes # (Manual) Monocytes # (Manual) Eosinophils # (Manual) Nucleated RBC % Basophils # (Manual) PT INR APTT Heparin Anti-Xa Level ABG pH POC ABG pO2 ABG pO2 ABG HCO3 ABG O2 Saturation ABG Base Excess POC ABG pCO2 ABG Hemoglobin ABG Oxyhemoglobin ABG Sodium ABG Chloride ABG Glucose Oxyhemoglobin Sodium Potassium Chloride Carbon Dioxide BUN Creatinine Glucose POC Glucose 111 H 107 H Lactic Acid Calcium Phosphorus Magnesium AST 309 H ALT 650 H Lactate Dehydrogenase Total Bilirubin 1.30 H Direct Bilirubin 0.9 H CK-MB (CK-2) C-Reactive Protein NT-Pro-B Natriuret Pep Total Protein 6.2 L Albumin 2.7 L Arterial Blood Glucose Urine WBC (Auto) Urine Creatinine 02/09/20 02/09/20 02/09/20 05:41 12:28 18:07 WBC RBC Hgb Hct MCHC RDW MCV MCH Lymph % (Auto) [place] % (Auto) [place] # Eos # Lymph # (Auto) [place] # (Auto) Eos # (Auto) Seg Neutrophils % Seg Neuts % (Manual) Baso # (Auto) Lymphocytes % (Manual) Monocytes % (Manual) Eosinophils % (Manual) Basophils % (Manual) Seg Neutrophils # Seg Neutrophils # Man Lymphocytes # (Manual) Monocytes # (Manual) Eosinophils # (Manual) Nucleated RBC % Basophils # (Manual) PT INR APTT Heparin Anti-Xa Level ABG pH POC ABG pO2 ABG pO2 ABG HCO3 ABG O2 Saturation ABG Base Excess POC ABG pCO2 ABG Hemoglobin ABG Oxyhemoglobin ABG Sodium ABG Chloride ABG Glucose Oxyhemoglobin Sodium Potassium Chloride Carbon Dioxide BUN Creatinine Glucose POC Glucose 113 H 140 H 143 H Lactic Acid Calcium Phosphorus Magnesium AST ALT Lactate Dehydrogenase Total Bilirubin Direct Bilirubin CK-MB (CK-2) C-Reactive Protein NT-Pro-B Natriuret Pep Total Protein Albumin Arterial Blood Glucose Urine WBC (Auto) Urine Creatinine 02/09/20 02/09/20 02/10/20 21:40 23:45 06:00 WBC RBC Hgb Hct MCHC RDW MCV MCH Lymph % (Auto) [place] % (Auto) [place] # Eos # Lymph # (Auto) [place] # (Auto) Eos # (Auto) Seg Neutrophils % Seg Neuts % (Manual) Baso # (Auto) Lymphocytes % (Manual) Monocytes % (Manual) Eosinophils % (Manual) Basophils % (Manual) Seg Neutrophils # Seg Neutrophils # Man Lymphocytes # (Manual) Monocytes # (Manual) Eosinophils # (Manual) Nucleated RBC % Basophils # (Manual) PT INR APTT Heparin Anti-Xa Level ABG pH POC ABG pO2 ABG pO2 59.8 L ABG HCO3 33.3 H ABG O2 Saturation 88.9 L ABG Base Excess 7.4 H POC ABG pCO2 ABG Hemoglobin 10.4 L ABG Oxyhemoglobin ABG Sodium ABG Chloride ABG Glucose Oxyhemoglobin 86.3 L Sodium Potassium Chloride Carbon Dioxide BUN Creatinine Glucose POC Glucose 127 H 114 H Lactic Acid Calcium Phosphorus Magnesium AST ALT Lactate Dehydrogenase Total Bilirubin Direct Bilirubin CK-MB (CK-2) C-Reactive Protein NT-Pro-B Natriuret Pep Total Protein Albumin Arterial Blood Glucose Urine WBC (Auto) Urine Creatinine 02/10/20 02/10/20 02/10/20 07:40 07:40 13:38 WBC 11.5 H RBC Hgb 10.6 L Hct 34.7 L MCHC 31 L RDW 19.8 H MCV 79 L MCH 24 L Lymph % (Auto) [place] % (Auto) 9.2 H [place] # Eos # Lymph # (Auto) [place] # (Auto) 1.1 H Eos # (Auto) Seg Neutrophils % Seg Neuts % (Manual) Baso # (Auto) Lymphocytes % (Manual) Monocytes % (Manual) Eosinophils % (Manual) Basophils % (Manual) Seg Neutrophils # Seg Neutrophils # Man Lymphocytes # (Manual) Monocytes # (Manual) Eosinophils # (Manual) Nucleated RBC % Basophils # (Manual) PT INR APTT Heparin Anti-Xa Level ABG pH POC ABG pO2 ABG pO2 ABG HCO3 ABG O2 Saturation ABG Base Excess POC ABG pCO2 ABG Hemoglobin ABG Oxyhemoglobin ABG Sodium ABG Chloride ABG Glucose Oxyhemoglobin Sodium 151 H Potassium Chloride 107.2 H Carbon Dioxide 36 H BUN 25 H Creatinine 0.7 L Glucose 114 H POC Glucose 116 H Lactic Acid Calcium Phosphorus Magnesium 2.40 H AST ALT Lactate Dehydrogenase Total Bilirubin Direct Bilirubin CK-MB (CK-2) C-Reactive Protein NT-Pro-B Natriuret Pep Total Protein Albumin Arterial Blood Glucose Urine WBC (Auto) Urine Creatinine 02/10/20 02/11/20 02/11/20 17:44 05:47 12:21 WBC RBC Hgb Hct MCHC RDW MCV MCH Lymph % (Auto) [place] % (Auto) [place] # Eos # Lymph # (Auto) [place] # (Auto) Eos # (Auto) Seg Neutrophils % Seg Neuts % (Manual) Baso # (Auto) Lymphocytes % (Manual) Monocytes % (Manual) Eosinophils % (Manual) Basophils % (Manual) Seg Neutrophils # Seg Neutrophils # Man Lymphocytes # (Manual) Monocytes # (Manual) Eosinophils # (Manual) Nucleated RBC % Basophils # (Manual) PT INR APTT Heparin Anti-Xa Level ABG pH POC ABG pO2 ABG pO2 ABG HCO3 ABG O2 Saturation ABG Base Excess POC ABG pCO2 ABG Hemoglobin ABG Oxyhemoglobin ABG Sodium ABG Chloride ABG Glucose Oxyhemoglobin Sodium Potassium Chloride Carbon Dioxide BUN Creatinine Glucose POC Glucose 139 H 173 H 143 H Lactic Acid Calcium Phosphorus Magnesium AST ALT Lactate Dehydrogenase Total Bilirubin Direct Bilirubin CK-MB (CK-2) C-Reactive Protein NT-Pro-B Natriuret Pep Total Protein Albumin Arterial Blood Glucose Urine WBC (Auto) Urine Creatinine 02/11/20 02/11/20 02/12/20 13:43 14:11 00:15 WBC RBC Hgb Hct MCHC RDW MCV MCH Lymph % (Auto) [place] % (Auto) [place] # Eos # Lymph # (Auto) [place] # (Auto) Eos # (Auto) Seg Neutrophils % Seg Neuts % (Manual) Baso # (Auto) Lymphocytes % (Manual) Monocytes % (Manual) Eosinophils % (Manual) Basophils % (Manual) Seg Neutrophils # Seg Neutrophils # Man Lymphocytes # (Manual) Monocytes # (Manual) Eosinophils # (Manual) Nucleated RBC % Basophils # (Manual) PT INR APTT Heparin Anti-Xa Level ABG pH 7.502 H POC ABG pO2 77.7 L ABG pO2 ABG HCO3 ABG O2 Saturation ABG Base Excess POC ABG pCO2 ABG Hemoglobin 11.1 L ABG Oxyhemoglobin ABG Sodium ABG Chloride 108.0 H ABG Glucose 151 H Oxyhemoglobin Sodium Potassium Chloride Carbon Dioxide BUN Creatinine Glucose POC Glucose 130 H 125 H Lactic Acid Calcium Phosphorus Magnesium AST ALT Lactate Dehydrogenase Total Bilirubin Direct Bilirubin CK-MB (CK-2) C-Reactive Protein NT-Pro-B Natriuret Pep Total Protein Albumin Arterial Blood Glucose 151 H Urine WBC (Auto) Urine Creatinine 02/12/20 02/12/20 02/12/20 04:56 04:56 17:42 WBC RBC Hgb 9.9 L Hct 31.8 L MCHC 31 L RDW 19.4 H MCV 79 L MCH 25 L Lymph % (Auto) [place] % (Auto) 10.3 H [place] # Eos # Lymph # (Auto) [place] # (Auto) 1.0 H Eos # (Auto) Seg Neutrophils % Seg Neuts % (Manual) Baso # (Auto) Lymphocytes % (Manual) Monocytes % (Manual) Eosinophils % (Manual) Basophils % (Manual) Seg Neutrophils # Seg Neutrophils # Man Lymphocytes # (Manual) Monocytes # (Manual) Eosinophils # (Manual) Nucleated RBC % Basophils # (Manual) PT INR APTT Heparin Anti-Xa Level ABG pH POC ABG pO2 ABG pO2 ABG HCO3 ABG O2 Saturation ABG Base Excess POC ABG pCO2 ABG Hemoglobin ABG Oxyhemoglobin ABG Sodium ABG Chloride ABG Glucose Oxyhemoglobin Sodium 149 H Potassium Chloride 108.6 H Carbon Dioxide BUN 28 H Creatinine 0.7 L Glucose 108 H POC Glucose 113 H Lactic Acid Calcium Phosphorus Magnesium AST ALT Lactate Dehydrogenase Total Bilirubin Direct Bilirubin CK-MB (CK-2) C-Reactive Protein NT-Pro-B Natriuret Pep Total Protein Albumin Arterial Blood Glucose Urine WBC (Auto) Urine Creatinine 02/13/20 02/13/20 02/13/20 00:39 05:36 12:25 WBC RBC Hgb Hct MCHC RDW MCV MCH Lymph % (Auto) [place] % (Auto) [place] # Eos # Lymph # (Auto) [place] # (Auto) Eos # (Auto) Seg Neutrophils % Seg Neuts % (Manual) Baso # (Auto) Lymphocytes % (Manual) Monocytes % (Manual) Eosinophils % (Manual) Basophils % (Manual) Seg Neutrophils # Seg Neutrophils # Man Lymphocytes # (Manual) Monocytes # (Manual) Eosinophils # (Manual) Nucleated RBC % Basophils # (Manual) PT INR APTT Heparin Anti-Xa Level ABG pH POC ABG pO2 ABG pO2 ABG HCO3 ABG O2 Saturation ABG Base Excess POC ABG pCO2 ABG Hemoglobin ABG Oxyhemoglobin ABG Sodium ABG Chloride ABG Glucose Oxyhemoglobin Sodium Potassium Chloride Carbon Dioxide BUN Creatinine Glucose POC Glucose 129 H 126 H 129 H Lactic Acid Calcium Phosphorus Magnesium AST ALT Lactate Dehydrogenase Total Bilirubin Direct Bilirubin CK-MB (CK-2) C-Reactive Protein NT-Pro-B Natriuret Pep Total Protein Albumin Arterial Blood Glucose Urine WBC (Auto) Urine Creatinine 02/13/20 02/14/20 02/14/20 17:59 00:15 05:41 WBC RBC Hgb Hct MCHC RDW MCV MCH Lymph % (Auto) [place] % (Auto) [place] # Eos # Lymph # (Auto) [place] # (Auto) Eos # (Auto) Seg Neutrophils % Seg Neuts % (Manual) Baso # (Auto) Lymphocytes % (Manual) Monocytes % (Manual) Eosinophils % (Manual) Basophils % (Manual) Seg Neutrophils # Seg Neutrophils # Man Lymphocytes # (Manual) Monocytes # (Manual) Eosinophils # (Manual) Nucleated RBC % Basophils # (Manual) PT INR APTT Heparin Anti-Xa Level ABG pH POC ABG pO2 ABG pO2 ABG HCO3 ABG O2 Saturation ABG Base Excess POC ABG pCO2 ABG Hemoglobin ABG Oxyhemoglobin ABG Sodium ABG Chloride ABG Glucose Oxyhemoglobin Sodium Potassium Chloride Carbon Dioxide BUN Creatinine Glucose POC Glucose 153 H 130 H 130 H Lactic Acid Calcium Phosphorus Magnesium AST ALT Lactate Dehydrogenase Total Bilirubin Direct Bilirubin CK-MB (CK-2) C-Reactive Protein NT-Pro-B Natriuret Pep Total Protein Albumin Arterial Blood Glucose Urine WBC (Auto) Urine Creatinine 02/14/20 02/15/2020 11:32 00:12 05:27 WBC RBC Hgb Hct MCHC RDW MCV MCH Lymph % (Auto) [place] % (Auto) [place] # Eos # Lymph # (Auto) [place] # (Auto) Eos # (Auto) Seg Neutrophils % Seg Neuts % (Manual) Baso # (Auto) Lymphocytes % (Manual) Monocytes % (Manual) Eosinophils % (Manual) Basophils % (Manual) Seg Neutrophils # Seg Neutrophils # Man Lymphocytes # (Manual) Monocytes # (Manual) Eosinophils # (Manual) Nucleated RBC % Basophils # (Manual) PT INR APTT Heparin Anti-Xa Level ABG pH POC ABG pO2 ABG pO2 ABG HCO3 ABG O2 Saturation ABG Base Excess POC ABG pCO2 ABG Hemoglobin ABG Oxyhemoglobin ABG Sodium ABG Chloride ABG Glucose Oxyhemoglobin Sodium Potassium Chloride Carbon Dioxide BUN Creatinine Glucose POC Glucose 157 H 124 H 111 H Lactic Acid Calcium Phosphorus Magnesium AST ALT Lactate Dehydrogenase Total Bilirubin Direct Bilirubin CK-MB (CK-2) C-Reactive Protein NT-Pro-B Natriuret Pep Total Protein Albumin Arterial Blood Glucose Urine WBC (Auto) Urine Creatinine 02/15/20 02/15/20 02/15/20 06:59 06:59 11:14 WBC RBC Hgb 10.4 L Hct 33.7 L MCHC 31 L RDW 19.4 H MCV 80 L MCH 24 L Lymph % (Auto) [place] % (Auto) [place] # Eos # Lymph # (Auto) [place] # (Auto) Eos # (Auto) Seg Neutrophils % Seg Neuts % (Manual) Baso # (Auto) Lymphocytes % (Manual) Monocytes % (Manual) Eosinophils % (Manual) Basophils % (Manual) 2.0 H Seg Neutrophils # Seg Neutrophils # Man Lymphocytes # (Manual) Monocytes # (Manual) Eosinophils # (Manual) Nucleated RBC % 1.0 H Basophils # (Manual) 0.2 H PT INR APTT Heparin Anti-Xa Level ABG pH POC ABG pO2 ABG pO2 ABG HCO3 ABG O2 Saturation ABG Base Excess POC ABG pCO2 ABG Hemoglobin ABG Oxyhemoglobin ABG Sodium ABG Chloride ABG Glucose Oxyhemoglobin Sodium 149 H Potassium Chloride 108.4 H Carbon Dioxide 31 H BUN 40 H Creatinine 0.7 L Glucose 150 H POC Glucose 128 H Lactic Acid Calcium Phosphorus Magnesium AST ALT Lactate Dehydrogenase Total Bilirubin Direct Bilirubin CK-MB (CK-2) C-Reactive Protein NT-Pro-B Natriuret Pep Total Protein Albumin Arterial Blood Glucose Urine WBC (Auto) Urine Creatinine 02/15/20 02/15/20 02/16/20 17:46 23:50 05:03 WBC RBC Hgb Hct MCHC RDW MCV MCH Lymph % (Auto) [place] % (Auto) [place] # Eos # Lymph # (Auto) [place] # (Auto) Eos # (Auto) Seg Neutrophils % Seg Neuts % (Manual) Baso # (Auto) Lymphocytes % (Manual) Monocytes % (Manual) Eosinophils % (Manual) Basophils % (Manual) Seg Neutrophils # Seg Neutrophils # Man Lymphocytes # (Manual) Monocytes # (Manual) Eosinophils # (Manual) Nucleated RBC % Basophils # (Manual) PT INR APTT Heparin Anti-Xa Level ABG pH POC ABG pO2 ABG pO2 ABG HCO3 ABG O2 Saturation ABG Base Excess POC ABG pCO2 ABG Hemoglobin ABG Oxyhemoglobin ABG Sodium ABG Chloride ABG Glucose Oxyhemoglobin Sodium Potassium Chloride Carbon Dioxide BUN Creatinine Glucose POC Glucose 154 H 135 H 148 H Lactic Acid Calcium Phosphorus Magnesium AST ALT Lactate Dehydrogenase Total Bilirubin Direct Bilirubin CK-MB (CK-2) C-Reactive Protein NT-Pro-B Natriuret Pep Total Protein Albumin Arterial Blood Glucose Urine WBC (Auto) Urine Creatinine 02/16/20 02/16/20 02/16/20 07:53 11:28 17:52 WBC RBC Hgb Hct MCHC RDW MCV MCH Lymph % (Auto) [place] % (Auto) [place] # Eos # Lymph # (Auto) [place] # (Auto) Eos # (Auto) Seg Neutrophils % Seg Neuts % (Manual) Baso # (Auto) Lymphocytes % (Manual) Monocytes % (Manual) Eosinophils % (Manual) Basophils % (Manual) Seg Neutrophils # Seg Neutrophils # Man Lymphocytes # (Manual) Monocytes # (Manual) Eosinophils # (Manual) Nucleated RBC % Basophils # (Manual) PT INR APTT Heparin Anti-Xa Level ABG pH POC ABG pO2 ABG pO2 ABG HCO3 ABG O2 Saturation ABG Base Excess POC ABG pCO2 ABG Hemoglobin ABG Oxyhemoglobin ABG Sodium ABG Chloride ABG Glucose Oxyhemoglobin Sodium Potassium Chloride 107.9 H Carbon Dioxide BUN 38 H Creatinine 0.6 L Glucose 151 H POC Glucose 123 H 152 H Lactic Acid Calcium Phosphorus Magnesium AST ALT Lactate Dehydrogenase Total Bilirubin Direct Bilirubin CK-MB (CK-2) C-Reactive Protein NT-Pro-B Natriuret Pep Total Protein Albumin Arterial Blood Glucose Urine WBC (Auto) Urine Creatinine 02/16/20 02/17/20 02/17/20 23:49 06:24 11:36 WBC RBC Hgb Hct MCHC RDW MCV MCH Lymph % (Auto) [place] % (Auto) [place] # Eos # Lymph # (Auto) [place] # (Auto) Eos # (Auto) Seg Neutrophils % Seg Neuts % (Manual) Baso # (Auto) Lymphocytes % (Manual) Monocytes % (Manual) Eosinophils % (Manual) Basophils % (Manual) Seg Neutrophils # Seg Neutrophils # Man Lymphocytes # (Manual) Monocytes # (Manual) Eosinophils # (Manual) Nucleated RBC % Basophils # (Manual) PT INR APTT Heparin Anti-Xa Level ABG pH POC ABG pO2 ABG pO2 ABG HCO3 ABG O2 Saturation ABG Base Excess POC ABG pCO2 ABG Hemoglobin ABG Oxyhemoglobin ABG Sodium ABG Chloride ABG Glucose Oxyhemoglobin Sodium Potassium Chloride Carbon Dioxide BUN Creatinine Glucose POC Glucose 156 H 193 H 162 H Lactic Acid Calcium Phosphorus Magnesium AST ALT Lactate Dehydrogenase Total Bilirubin Direct Bilirubin CK-MB (CK-2) C-Reactive Protein NT-Pro-B Natriuret Pep Total Protein Albumin Arterial Blood Glucose Urine WBC (Auto) Urine Creatinine 02/17/20 02/17/20 02/18/20 17:55 23:28 05:11 WBC RBC Hgb Hct MCHC RDW MCV MCH Lymph % (Auto) [place] % (Auto) [place] # Eos # Lymph # (Auto) [place] # (Auto) Eos # (Auto) Seg Neutrophils % Seg Neuts % (Manual) Baso # (Auto) Lymphocytes % (Manual) Monocytes % (Manual) Eosinophils % (Manual) Basophils % (Manual) Seg Neutrophils # Seg Neutrophils # Man Lymphocytes # (Manual) Monocytes # (Manual) Eosinophils # (Manual) Nucleated RBC % Basophils # (Manual) PT INR APTT Heparin Anti-Xa Level ABG pH POC ABG pO2 ABG pO2 ABG HCO3 ABG O2 Saturation ABG Base Excess POC ABG pCO2 ABG Hemoglobin ABG Oxyhemoglobin ABG Sodium ABG Chloride ABG Glucose Oxyhemoglobin Sodium Potassium Chloride Carbon Dioxide BUN Creatinine Glucose POC Glucose 165 H 146 H 122 H Lactic Acid Calcium Phosphorus Magnesium AST ALT Lactate Dehydrogenase Total Bilirubin Direct Bilirubin CK-MB (CK-2) C-Reactive Protein NT-Pro-B Natriuret Pep Total Protein Albumin Arterial Blood Glucose Urine WBC (Auto) Urine Creatinine 02/18/20 02/18/20 02/19/20 12:24 17:29 00:01 WBC RBC Hgb Hct MCHC RDW MCV MCH Lymph % (Auto) [place] % (Auto) [place] # Eos # Lymph # (Auto) [place] # (Auto) Eos # (Auto) Seg Neutrophils % Seg Neuts % (Manual) Baso # (Auto) Lymphocytes % (Manual) Monocytes % (Manual) Eosinophils % (Manual) Basophils % (Manual) Seg Neutrophils # Seg Neutrophils # Man Lymphocytes # (Manual) Monocytes # (Manual) Eosinophils # (Manual) Nucleated RBC % Basophils # (Manual) PT INR APTT Heparin Anti-Xa Level ABG pH POC ABG pO2 ABG pO2 ABG HCO3 ABG O2 Saturation ABG Base Excess POC ABG pCO2 ABG Hemoglobin ABG Oxyhemoglobin ABG Sodium ABG Chloride ABG Glucose Oxyhemoglobin Sodium Potassium Chloride Carbon Dioxide BUN Creatinine Glucose POC Glucose 162 H 136 H 145 H Lactic Acid Calcium Phosphorus Magnesium AST ALT Lactate Dehydrogenase Total Bilirubin Direct Bilirubin CK-MB (CK-2) C-Reactive Protein NT-Pro-B Natriuret Pep Total Protein Albumin Arterial Blood Glucose Urine WBC (Auto) Urine Creatinine 02/19/20 02/19/20 02/19/20 05:53 11:44 17:32 WBC RBC Hgb Hct MCHC RDW MCV MCH Lymph % (Auto) [place] % (Auto) [place] # Eos # Lymph # (Auto) [place] # (Auto) Eos # (Auto) Seg Neutrophils % Seg Neuts % (Manual) Baso # (Auto) Lymphocytes % (Manual) Monocytes % (Manual) Eosinophils % (Manual) Basophils % (Manual) Seg Neutrophils # Seg Neutrophils # Man Lymphocytes # (Manual) Monocytes # (Manual) Eosinophils # (Manual) Nucleated RBC % Basophils # (Manual) PT INR APTT Heparin Anti-Xa Level ABG pH POC ABG pO2 ABG pO2 ABG HCO3 ABG O2 Saturation ABG Base Excess POC ABG pCO2 ABG Hemoglobin ABG Oxyhemoglobin ABG Sodium ABG Chloride ABG Glucose Oxyhemoglobin Sodium Potassium Chloride Carbon Dioxide BUN Creatinine Glucose POC Glucose 116 H 120 H 154 H Lactic Acid Calcium Phosphorus Magnesium AST ALT Lactate Dehydrogenase Total Bilirubin Direct Bilirubin CK-MB (CK-2) C-Reactive Protein NT-Pro-B Natriuret Pep Total Protein Albumin Arterial Blood Glucose Urine WBC (Auto) Urine Creatinine 02/19/20 02/20/20 02/20/20 23:43 00:24 00:24 WBC RBC Hgb 9.4 L Hct 30.0 L MCHC 31 L RDW 20.4 H MCV 79 L MCH 25 L Lymph % (Auto) [place] % (Auto) 8.5 H [place] # Eos # Lymph # (Auto) [place] # (Auto) Eos # (Auto) Seg Neutrophils % Seg Neuts % (Manual) Baso # (Auto) Lymphocytes % (Manual) Monocytes % (Manual) Eosinophils % (Manual) Basophils % (Manual) Seg Neutrophils # Seg Neutrophils # Man Lymphocytes # (Manual) Monocytes # (Manual) Eosinophils # (Manual) Nucleated RBC % Basophils # (Manual) PT INR APTT Heparin Anti-Xa Level ABG pH POC ABG pO2 ABG pO2 ABG HCO3 ABG O2 Saturation ABG Base Excess POC ABG pCO2 ABG Hemoglobin ABG Oxyhemoglobin ABG Sodium ABG Chloride ABG Glucose Oxyhemoglobin Sodium 147 H Potassium 3.4 L Chloride Carbon Dioxide 31 H BUN 34 H Creatinine 0.5 L Glucose 135 H POC Glucose 122 H Lactic Acid Calcium Phosphorus Magnesium AST ALT Lactate Dehydrogenase Total Bilirubin Direct Bilirubin CK-MB (CK-2) C-Reactive Protein NT-Pro-B Natriuret Pep Total Protein Albumin Arterial Blood Glucose Urine WBC (Auto) Urine Creatinine 02/20/20 02/20/20 02/20/20 06:07 06:45 12:03 WBC RBC Hgb Hct MCHC RDW MCV MCH Lymph % (Auto) [place] % (Auto) [place] # Eos # Lymph # (Auto) [place] # (Auto) Eos # (Auto) Seg Neutrophils % Seg Neuts % (Manual) Baso # (Auto) Lymphocytes % (Manual) Monocytes % (Manual) Eosinophils % (Manual) Basophils % (Manual) Seg Neutrophils # Seg Neutrophils # Man Lymphocytes # (Manual) Monocytes # (Manual) Eosinophils # (Manual) Nucleated RBC % Basophils # (Manual) PT INR APTT Heparin Anti-Xa Level ABG pH 7.461 H POC ABG pO2 ABG pO2 ABG HCO3 33.3 H ABG O2 Saturation ABG Base Excess 8.4 H POC ABG pCO2 ABG Hemoglobin 10.0 L ABG Oxyhemoglobin ABG Sodium ABG Chloride ABG Glucose Oxyhemoglobin 94.1 L Sodium Potassium Chloride Carbon Dioxide BUN Creatinine Glucose POC Glucose 109 H 128 H Lactic Acid Calcium Phosphorus Magnesium AST ALT Lactate Dehydrogenase Total Bilirubin Direct Bilirubin CK-MB (CK-2) C-Reactive Protein NT-Pro-B Natriuret Pep Total Protein Albumin Arterial Blood Glucose Urine WBC (Auto) Urine Creatinine 02/20/20 02/20/20 02/21/20 18:02 23:55 05:42 WBC RBC Hgb Hct MCHC RDW MCV MCH Lymph % (Auto) [place] % (Auto) [place] # Eos # Lymph # (Auto) [place] # (Auto) Eos # (Auto) Seg Neutrophils % Seg Neuts % (Manual) Baso # (Auto) Lymphocytes % (Manual) Monocytes % (Manual) Eosinophils % (Manual) Basophils % (Manual) Seg Neutrophils # Seg Neutrophils # Man Lymphocytes # (Manual) Monocytes # (Manual) Eosinophils # (Manual) Nucleated RBC % Basophils # (Manual) PT INR APTT Heparin Anti-Xa Level ABG pH POC ABG pO2 ABG pO2 ABG HCO3 ABG O2 Saturation ABG Base Excess POC ABG pCO2 ABG Hemoglobin ABG Oxyhemoglobin ABG Sodium ABG Chloride ABG Glucose Oxyhemoglobin Sodium Potassium Chloride Carbon Dioxide BUN Creatinine Glucose POC Glucose 118 H 125 H 127 H Lactic Acid Calcium Phosphorus Magnesium AST ALT Lactate Dehydrogenase Total Bilirubin Direct Bilirubin CK-MB (CK-2) C-Reactive Protein NT-Pro-B Natriuret Pep Total Protein Albumin Arterial Blood Glucose Urine WBC (Auto) Urine Creatinine 02/21/20 02/21/20 02/21/20 12:10 17:35 23:40 WBC RBC Hgb Hct MCHC RDW MCV MCH Lymph % (Auto) [place] % (Auto) [place] # Eos # Lymph # (Auto) [place] # (Auto) Eos # (Auto) Seg Neutrophils % Seg Neuts % (Manual) Baso # (Auto) Lymphocytes % (Manual) Monocytes % (Manual) Eosinophils % (Manual) Basophils % (Manual) Seg Neutrophils # Seg Neutrophils # Man Lymphocytes # (Manual) Monocytes # (Manual) Eosinophils # (Manual) Nucleated RBC % Basophils # (Manual) PT INR APTT Heparin Anti-Xa Level ABG pH POC ABG pO2 ABG pO2 ABG HCO3 ABG O2 Saturation ABG Base Excess POC ABG pCO2 ABG Hemoglobin ABG Oxyhemoglobin ABG Sodium ABG Chloride ABG Glucose Oxyhemoglobin Sodium Potassium Chloride Carbon Dioxide BUN Creatinine Glucose POC Glucose 128 H 113 H 125 H Lactic Acid Calcium Phosphorus Magnesium AST ALT Lactate Dehydrogenase Total Bilirubin Direct Bilirubin CK-MB (CK-2) C-Reactive Protein NT-Pro-B Natriuret Pep Total Protein Albumin Arterial Blood Glucose Urine WBC (Auto) Urine Creatinine 02/22/20 02/22/20 02/22/20 05:57 08:06 08:06 WBC RBC Hgb 10.8 L Hct 35.2 L MCHC 31 L RDW 21.8 H MCV 80 L MCH 25 L Lymph % (Auto) [place] % (Auto) [place] # Eos # Lymph # (Auto) [place] # (Auto) Eos # (Auto) Seg Neutrophils % 71.5 H Seg Neuts % (Manual) Baso # (Auto) Lymphocytes % (Manual) Monocytes % (Manual) Eosinophils % (Manual) Basophils % (Manual) Seg Neutrophils # Seg Neutrophils # Man Lymphocytes # (Manual) Monocytes # (Manual) Eosinophils # (Manual) Nucleated RBC % Basophils # (Manual) PT INR APTT Heparin Anti-Xa Level ABG pH POC ABG pO2 ABG pO2 ABG HCO3 ABG O2 Saturation ABG Base Excess POC ABG pCO2 ABG Hemoglobin ABG Oxyhemoglobin ABG Sodium ABG Chloride ABG Glucose Oxyhemoglobin Sodium 146 H Potassium Chloride Carbon Dioxide 34 H BUN 21 H Creatinine 0.4 L Glucose 149 H POC Glucose 138 H Lactic Acid Calcium Phosphorus Magnesium AST ALT Lactate Dehydrogenase Total Bilirubin Direct Bilirubin CK-MB (CK-2) C-Reactive Protein NT-Pro-B Natriuret Pep Total Protein Albumin Arterial Blood Glucose Urine WBC (Auto) Urine Creatinine 02/22/20 02/22/20 02/22/20 11:47 17:11 23:25 WBC RBC Hgb Hct MCHC RDW MCV MCH Lymph % (Auto) [place] % (Auto) [place] # Eos # Lymph # (Auto) [place] # (Auto) Eos # (Auto) Seg Neutrophils % Seg Neuts % (Manual) Baso # (Auto) Lymphocytes % (Manual) Monocytes % (Manual) Eosinophils % (Manual) Basophils % (Manual) Seg Neutrophils # Seg Neutrophils # Man Lymphocytes # (Manual) Monocytes # (Manual) Eosinophils # (Manual) Nucleated RBC % Basophils # (Manual) PT INR APTT Heparin Anti-Xa Level ABG pH POC ABG pO2 ABG pO2 ABG HCO3 ABG O2 Saturation ABG Base Excess POC ABG pCO2 ABG Hemoglobin ABG Oxyhemoglobin ABG Sodium ABG Chloride ABG Glucose Oxyhemoglobin Sodium Potassium Chloride Carbon Dioxide BUN Creatinine Glucose POC Glucose 149 H 144 H 142 H Lactic Acid Calcium Phosphorus Magnesium AST ALT Lactate Dehydrogenase Total Bilirubin Direct Bilirubin CK-MB (CK-2) C-Reactive Protein NT-Pro-B Natriuret Pep Total Protein Albumin Arterial Blood Glucose Urine WBC (Auto) Urine Creatinine 02/23/20 02/23/20 02/23/20 05:22 11:37 18:14 WBC RBC Hgb Hct MCHC RDW MCV MCH Lymph % (Auto) [place] % (Auto) [place] # Eos # Lymph # (Auto) [place] # (Auto) Eos # (Auto) Seg Neutrophils % Seg Neuts % (Manual) Baso # (Auto) Lymphocytes % (Manual) Monocytes % (Manual) Eosinophils % (Manual) Basophils % (Manual) Seg Neutrophils # Seg Neutrophils # Man Lymphocytes # (Manual) Monocytes # (Manual) Eosinophils # (Manual) Nucleated RBC % Basophils # (Manual) PT INR APTT Heparin Anti-Xa Level ABG pH POC ABG pO2 ABG pO2 ABG HCO3 ABG O2 Saturation ABG Base Excess POC ABG pCO2 ABG Hemoglobin ABG Oxyhemoglobin ABG Sodium ABG Chloride ABG Glucose Oxyhemoglobin Sodium Potassium Chloride Carbon Dioxide BUN Creatinine Glucose POC Glucose 144 H 113 H 127 H Lactic Acid Calcium Phosphorus Magnesium AST ALT Lactate Dehydrogenase Total Bilirubin Direct Bilirubin CK-MB (CK-2) C-Reactive Protein NT-Pro-B Natriuret Pep Total Protein Albumin Arterial Blood Glucose Urine WBC (Auto) Urine Creatinine 02/23/20 02/24/20 02/24/20 23:45 05:50 11:24 WBC RBC Hgb Hct MCHC RDW MCV MCH Lymph % (Auto) [place] % (Auto) [place] # Eos # Lymph # (Auto) [place] # (Auto) Eos # (Auto) Seg Neutrophils % Seg Neuts % (Manual) Baso # (Auto) Lymphocytes % (Manual) Monocytes % (Manual) Eosinophils % (Manual) Basophils % (Manual) Seg Neutrophils # Seg Neutrophils # Man Lymphocytes # (Manual) Monocytes # (Manual) Eosinophils # (Manual) Nucleated RBC % Basophils # (Manual) PT INR APTT Heparin Anti-Xa Level ABG pH POC ABG pO2 ABG pO2 ABG HCO3 ABG O2 Saturation ABG Base Excess POC ABG pCO2 ABG Hemoglobin ABG Oxyhemoglobin ABG Sodium ABG Chloride ABG Glucose Oxyhemoglobin Sodium Potassium Chloride Carbon Dioxide BUN Creatinine Glucose POC Glucose 123 H 117 H 126 H Lactic Acid Calcium Phosphorus Magnesium AST ALT Lactate Dehydrogenase Total Bilirubin Direct Bilirubin CK-MB (CK-2) C-Reactive Protein NT-Pro-B Natriuret Pep Total Protein Albumin Arterial Blood Glucose Urine WBC (Auto) Urine Creatinine 02/24/20 02/24/20 02/25/20 18:35 23:27 05:20 WBC RBC Hgb Hct MCHC RDW MCV MCH Lymph % (Auto) [place] % (Auto) [place] # Eos # Lymph # (Auto) [place] # (Auto) Eos # (Auto) Seg Neutrophils % Seg Neuts % (Manual) Baso # (Auto) Lymphocytes % (Manual) Monocytes % (Manual) Eosinophils % (Manual) Basophils % (Manual) Seg Neutrophils # Seg Neutrophils # Man Lymphocytes # (Manual) Monocytes # (Manual) Eosinophils # (Manual) Nucleated RBC % Basophils # (Manual) PT INR APTT Heparin Anti-Xa Level ABG pH POC ABG pO2 ABG pO2 ABG HCO3 ABG O2 Saturation ABG Base Excess POC ABG pCO2 ABG Hemoglobin ABG Oxyhemoglobin ABG Sodium ABG Chloride ABG Glucose Oxyhemoglobin Sodium Potassium Chloride Carbon Dioxide BUN Creatinine Glucose POC Glucose 121 H 127 H 133 H Lactic Acid Calcium Phosphorus Magnesium AST ALT Lactate Dehydrogenase Total Bilirubin Direct Bilirubin CK-MB (CK-2) C-Reactive Protein NT-Pro-B Natriuret Pep Total Protein Albumin Arterial Blood Glucose Urine WBC (Auto) Urine Creatinine 02/25/20 02/25/20 02/25/20 12:08 17:26 23:33 WBC RBC Hgb Hct MCHC RDW MCV MCH Lymph % (Auto) [place] % (Auto) [place] # Eos # Lymph # (Auto) [place] # (Auto) Eos # (Auto) Seg Neutrophils % Seg Neuts % (Manual) Baso # (Auto) Lymphocytes % (Manual) Monocytes % (Manual) Eosinophils % (Manual) Basophils % (Manual) Seg Neutrophils # Seg Neutrophils # Man Lymphocytes # (Manual) Monocytes # (Manual) Eosinophils # (Manual) Nucleated RBC % Basophils # (Manual) PT INR APTT Heparin Anti-Xa Level ABG pH POC ABG pO2 ABG pO2 ABG HCO3 ABG O2 Saturation ABG Base Excess POC ABG pCO2 ABG Hemoglobin ABG Oxyhemoglobin ABG Sodium ABG Chloride ABG Glucose Oxyhemoglobin Sodium Potassium Chloride Carbon Dioxide BUN Creatinine Glucose POC Glucose 109 H 120 H 120 H Lactic Acid Calcium Phosphorus Magnesium AST ALT Lactate Dehydrogenase Total Bilirubin Direct Bilirubin CK-MB (CK-2) C-Reactive Protein NT-Pro-B Natriuret Pep Total Protein Albumin Arterial Blood Glucose Urine WBC (Auto) Urine Creatinine 02/26/20 02/26/20 02/27/20 05:33 07:50 12:13 WBC RBC Hgb Hct MCHC RDW MCV MCH Lymph % (Auto) [place] % (Auto) [place] # Eos # Lymph # (Auto) [place] # (Auto) Eos # (Auto) Seg Neutrophils % Seg Neuts % (Manual) Baso # (Auto) Lymphocytes % (Manual) Monocytes % (Manual) Eosinophils % (Manual) Basophils % (Manual) Seg Neutrophils # Seg Neutrophils # Man Lymphocytes # (Manual) Monocytes # (Manual) Eosinophils # (Manual) Nucleated RBC % Basophils # (Manual) PT INR APTT Heparin Anti-Xa Level ABG pH POC ABG pO2 ABG pO2 ABG HCO3 ABG O2 Saturation ABG Base Excess POC ABG pCO2 ABG Hemoglobin ABG Oxyhemoglobin ABG Sodium ABG Chloride ABG Glucose Oxyhemoglobin Sodium Potassium Chloride Carbon Dioxide BUN Creatinine Glucose POC Glucose 106 H 130 H Lactic Acid Calcium Phosphorus Magnesium AST ALT Lactate Dehydrogenase Total Bilirubin Direct Bilirubin CK-MB (CK-2) C-Reactive Protein NT-Pro-B Natriuret Pep Total Protein Albumin Arterial Blood Glucose Urine WBC (Auto) > 182.0 H Urine Creatinine 02/27/20 02/27/20 02/28/20 18:20 23:33 05:01 WBC RBC Hgb Hct MCHC RDW MCV MCH Lymph % (Auto) [place] % (Auto) [place] # Eos # Lymph # (Auto) [place] # (Auto) Eos # (Auto) Seg Neutrophils % Seg Neuts % (Manual) Baso # (Auto) Lymphocytes % (Manual) Monocytes % (Manual) Eosinophils % (Manual) Basophils % (Manual) Seg Neutrophils # Seg Neutrophils # Man Lymphocytes # (Manual) Monocytes # (Manual) Eosinophils # (Manual) Nucleated RBC % Basophils # (Manual) PT INR APTT Heparin Anti-Xa Level ABG pH POC ABG pO2 ABG pO2 ABG HCO3 ABG O2 Saturation ABG Base Excess POC ABG pCO2 ABG Hemoglobin ABG Oxyhemoglobin ABG Sodium ABG Chloride ABG Glucose Oxyhemoglobin Sodium Potassium Chloride Carbon Dioxide BUN Creatinine Glucose POC Glucose 109 H 124 H 134 H Lactic Acid Calcium Phosphorus Magnesium AST ALT Lactate Dehydrogenase Total Bilirubin Direct Bilirubin CK-MB (CK-2) C-Reactive Protein NT-Pro-B Natriuret Pep Total Protein Albumin Arterial Blood Glucose Urine WBC (Auto) Urine Creatinine 02/28/20 02/28/20 02/28/20 11:54 18:16 23:03 WBC RBC Hgb Hct MCHC RDW MCV MCH Lymph % (Auto) [place] % (Auto) [place] # Eos # Lymph # (Auto) [place] # (Auto) Eos # (Auto) Seg Neutrophils % Seg Neuts % (Manual) Baso # (Auto) Lymphocytes % (Manual) Monocytes % (Manual) Eosinophils % (Manual) Basophils % (Manual) Seg Neutrophils # Seg Neutrophils # Man Lymphocytes # (Manual) Monocytes # (Manual) Eosinophils # (Manual) Nucleated RBC % Basophils # (Manual) PT INR APTT Heparin Anti-Xa Level ABG pH POC ABG pO2 ABG pO2 ABG HCO3 ABG O2 Saturation ABG Base Excess POC ABG pCO2 ABG Hemoglobin ABG Oxyhemoglobin ABG Sodium ABG Chloride ABG Glucose Oxyhemoglobin Sodium Potassium Chloride Carbon Dioxide BUN Creatinine Glucose POC Glucose 133 H 134 H 146 H Lactic Acid Calcium Phosphorus Magnesium AST ALT Lactate Dehydrogenase Total Bilirubin Direct Bilirubin CK-MB (CK-2) C-Reactive Protein NT-Pro-B Natriuret Pep Total Protein Albumin Arterial Blood Glucose Urine WBC (Auto) Urine Creatinine 02/29/20 02/29/20 02/29/20 05:24 11:34 17:12 WBC RBC Hgb Hct MCHC RDW MCV MCH Lymph % (Auto) [place] % (Auto) [place] # Eos # Lymph # (Auto) [place] # (Auto) Eos # (Auto) Seg Neutrophils % Seg Neuts % (Manual) Baso # (Auto) Lymphocytes % (Manual) Monocytes % (Manual) Eosinophils % (Manual) Basophils % (Manual) Seg Neutrophils # Seg Neutrophils # Man Lymphocytes # (Manual) Monocytes # (Manual) Eosinophils # (Manual) Nucleated RBC % Basophils # (Manual) PT INR APTT Heparin Anti-Xa Level ABG pH POC ABG pO2 ABG pO2 ABG HCO3 ABG O2 Saturation ABG Base Excess POC ABG pCO2 ABG Hemoglobin ABG Oxyhemoglobin ABG Sodium ABG Chloride ABG Glucose Oxyhemoglobin Sodium Potassium Chloride Carbon Dioxide BUN Creatinine Glucose POC Glucose 139 H 141 H 157 H Lactic Acid Calcium Phosphorus Magnesium AST ALT Lactate Dehydrogenase Total Bilirubin Direct Bilirubin CK-MB (CK-2) C-Reactive Protein NT-Pro-B Natriuret Pep Total Protein Albumin Arterial Blood Glucose Urine WBC (Auto) Urine Creatinine 02/29/20 03/01/20 03/01/20 23:35 06:00 11:53 WBC RBC Hgb Hct MCHC RDW MCV MCH Lymph % (Auto) [place] % (Auto) [place] # Eos # Lymph # (Auto) [place] # (Auto) Eos # (Auto) Seg Neutrophils % Seg Neuts % (Manual) Baso # (Auto) Lymphocytes % (Manual) Monocytes % (Manual) Eosinophils % (Manual) Basophils % (Manual) Seg Neutrophils # Seg Neutrophils # Man Lymphocytes # (Manual) Monocytes # (Manual) Eosinophils # (Manual) Nucleated RBC % Basophils # (Manual) PT INR APTT Heparin Anti-Xa Level ABG pH POC ABG pO2 ABG pO2 ABG HCO3 ABG O2 Saturation ABG Base Excess POC ABG pCO2 ABG Hemoglobin ABG Oxyhemoglobin ABG Sodium ABG Chloride ABG Glucose Oxyhemoglobin Sodium Potassium Chloride Carbon Dioxide BUN Creatinine Glucose POC Glucose 120 H 132 H 136 H Lactic Acid Calcium Phosphorus Magnesium AST ALT Lactate Dehydrogenase Total Bilirubin Direct Bilirubin CK-MB (CK-2) C-Reactive Protein NT-Pro-B Natriuret Pep Total Protein Albumin Arterial Blood Glucose Urine WBC (Auto) Urine Creatinine 03/01/20 03/01/20 03/02/20 17:36 23:16 05:12 WBC RBC Hgb Hct MCHC RDW MCV MCH Lymph % (Auto) [place] % (Auto) [place] # Eos # Lymph # (Auto) [place] # (Auto) Eos # (Auto) Seg Neutrophils % Seg Neuts % (Manual) Baso # (Auto) Lymphocytes % (Manual) Monocytes % (Manual) Eosinophils % (Manual) Basophils % (Manual) Seg Neutrophils # Seg Neutrophils # Man Lymphocytes # (Manual) Monocytes # (Manual) Eosinophils # (Manual) Nucleated RBC % Basophils # (Manual) PT INR APTT Heparin Anti-Xa Level ABG pH POC ABG pO2 ABG pO2 ABG HCO3 ABG O2 Saturation ABG Base Excess POC ABG pCO2 ABG Hemoglobin ABG Oxyhemoglobin ABG Sodium ABG Chloride ABG Glucose Oxyhemoglobin Sodium Potassium Chloride Carbon Dioxide BUN Creatinine Glucose POC Glucose 171 H 164 H 176 H Lactic Acid Calcium Phosphorus Magnesium AST ALT Lactate Dehydrogenase Total Bilirubin Direct Bilirubin CK-MB (CK-2) C-Reactive Protein NT-Pro-B Natriuret Pep Total Protein Albumin Arterial Blood Glucose Urine WBC (Auto) Urine Creatinine 03/02/20 03/02/20 03/03/20 11:42 18:01 00:06 WBC RBC Hgb Hct MCHC RDW MCV MCH Lymph % (Auto) [place] % (Auto) [place] # Eos # Lymph # (Auto) [place] # (Auto) Eos # (Auto) Seg Neutrophils % Seg Neuts % (Manual) Baso # (Auto) Lymphocytes % (Manual) Monocytes % (Manual) Eosinophils % (Manual) Basophils % (Manual) Seg Neutrophils # Seg Neutrophils # Man Lymphocytes # (Manual) Monocytes # (Manual) Eosinophils # (Manual) Nucleated RBC % Basophils # (Manual) PT INR APTT Heparin Anti-Xa Level ABG pH POC ABG pO2 ABG pO2 ABG HCO3 ABG O2 Saturation ABG Base Excess POC ABG pCO2 ABG Hemoglobin ABG Oxyhemoglobin ABG Sodium ABG Chloride ABG Glucose Oxyhemoglobin Sodium Potassium Chloride Carbon Dioxide BUN Creatinine Glucose POC Glucose 150 H 156 H 156 H Lactic Acid Calcium Phosphorus Magnesium AST ALT Lactate Dehydrogenase Total Bilirubin Direct Bilirubin CK-MB (CK-2) C-Reactive Protein NT-Pro-B Natriuret Pep Total Protein Albumin Arterial Blood Glucose Urine WBC (Auto) Urine Creatinine 03/03/20 03/03/20 03/03/20 03:31 11:20 16:55 WBC RBC Hgb Hct MCHC RDW MCV MCH Lymph % (Auto) [place] % (Auto) [place] # Eos # Lymph # (Auto) [place] # (Auto) Eos # (Auto) Seg Neutrophils % Seg Neuts % (Manual) Baso # (Auto) Lymphocytes % (Manual) Monocytes % (Manual) Eosinophils % (Manual) Basophils % (Manual) Seg Neutrophils # Seg Neutrophils # Man Lymphocytes # (Manual) Monocytes # (Manual) Eosinophils # (Manual) Nucleated RBC % Basophils # (Manual) PT INR APTT Heparin Anti-Xa Level ABG pH POC ABG pO2 ABG pO2 ABG HCO3 ABG O2 Saturation ABG Base Excess POC ABG pCO2 ABG Hemoglobin ABG Oxyhemoglobin ABG Sodium ABG Chloride ABG Glucose Oxyhemoglobin Sodium Potassium Chloride Carbon Dioxide BUN Creatinine Glucose POC Glucose 164 H 125 H 211 H Lactic Acid Calcium Phosphorus Magnesium AST ALT Lactate Dehydrogenase Total Bilirubin Direct Bilirubin CK-MB (CK-2) C-Reactive Protein NT-Pro-B Natriuret Pep Total Protein Albumin Arterial Blood Glucose Urine WBC (Auto) Urine Creatinine 03/04/20 03/04/20 03/04/20 00:29 05:20 12:09 WBC RBC Hgb Hct MCHC RDW MCV MCH Lymph % (Auto) [place] % (Auto) [place] # Eos # Lymph # (Auto) [place] # (Auto) Eos # (Auto) Seg Neutrophils % Seg Neuts % (Manual) Baso # (Auto) Lymphocytes % (Manual) Monocytes % (Manual) Eosinophils % (Manual) Basophils % (Manual) Seg Neutrophils # Seg Neutrophils # Man Lymphocytes # (Manual) Monocytes # (Manual) Eosinophils # (Manual) Nucleated RBC % Basophils # (Manual) PT INR APTT Heparin Anti-Xa Level ABG pH POC ABG pO2 ABG pO2 ABG HCO3 ABG O2 Saturation ABG Base Excess POC ABG pCO2 ABG Hemoglobin ABG Oxyhemoglobin ABG Sodium ABG Chloride ABG Glucose Oxyhemoglobin Sodium Potassium Chloride Carbon Dioxide BUN Creatinine Glucose POC Glucose 169 H 154 H 197 H Lactic Acid Calcium Phosphorus Magnesium AST ALT Lactate Dehydrogenase Total Bilirubin Direct Bilirubin CK-MB (CK-2) C-Reactive Protein NT-Pro-B Natriuret Pep Total Protein Albumin Arterial Blood Glucose Urine WBC (Auto) Urine Creatinine 03/04/20 03/04/20 03/04/20 18:00 20:38 20:38 WBC RBC Hgb 10.1 L Hct 32.7 L MCHC 31 L RDW 24.7 H MCV 79 L MCH 24 L Lymph % (Auto) [place] % (Auto) 8.9 H [place] # Eos # Lymph # (Auto) [place] # (Auto) Eos # (Auto) Seg Neutrophils % Seg Neuts % (Manual) Baso # (Auto) Lymphocytes % (Manual) Monocytes % (Manual) Eosinophils % (Manual) Basophils % (Manual) Seg Neutrophils # Seg Neutrophils # Man Lymphocytes # (Manual) Monocytes # (Manual) Eosinophils # (Manual) Nucleated RBC % Basophils # (Manual) PT INR APTT Heparin Anti-Xa Level ABG pH POC ABG pO2 ABG pO2 ABG HCO3 ABG O2 Saturation ABG Base Excess POC ABG pCO2 ABG Hemoglobin ABG Oxyhemoglobin ABG Sodium ABG Chloride ABG Glucose Oxyhemoglobin Sodium 136 L Potassium Chloride Carbon Dioxide BUN 25 H Creatinine 0.5 L Glucose 148 H POC Glucose 146 H Lactic Acid Calcium Phosphorus Magnesium AST ALT Lactate Dehydrogenase Total Bilirubin Direct Bilirubin CK-MB (CK-2) C-Reactive Protein NT-Pro-B Natriuret Pep Total Protein Albumin Arterial Blood Glucose Urine WBC (Auto) Urine Creatinine 03/04/20 03/05/20 03/05/20 23:17 05:44 11:32 WBC RBC Hgb Hct MCHC RDW MCV MCH Lymph % (Auto) [place] % (Auto) [place] # Eos # Lymph # (Auto) [place] # (Auto) Eos # (Auto) Seg Neutrophils % Seg Neuts % (Manual) Baso # (Auto) Lymphocytes % (Manual) Monocytes % (Manual) Eosinophils % (Manual) Basophils % (Manual) Seg Neutrophils # Seg Neutrophils # Man Lymphocytes # (Manual) Monocytes # (Manual) Eosinophils # (Manual) Nucleated RBC % Basophils # (Manual) PT INR APTT Heparin Anti-Xa Level ABG pH POC ABG pO2 ABG pO2 ABG HCO3 ABG O2 Saturation ABG Base Excess POC ABG pCO2 ABG Hemoglobin ABG Oxyhemoglobin ABG Sodium ABG Chloride ABG Glucose Oxyhemoglobin Sodium Potassium Chloride Carbon Dioxide BUN Creatinine Glucose POC Glucose 139 H 155 H 124 H Lactic Acid Calcium Phosphorus Magnesium AST ALT Lactate Dehydrogenase Total Bilirubin Direct Bilirubin CK-MB (CK-2) C-Reactive Protein NT-Pro-B Natriuret Pep Total Protein Albumin Arterial Blood Glucose Urine WBC (Auto) Urine Creatinine 03/05/20 03/05/20 03/06/20 17:45 23:18 12:16 WBC RBC Hgb Hct MCHC RDW MCV MCH Lymph % (Auto) [place] % (Auto) [place] # Eos # Lymph # (Auto) [place] # (Auto) Eos # (Auto) Seg Neutrophils % Seg Neuts % (Manual) Baso # (Auto) Lymphocytes % (Manual) Monocytes % (Manual) Eosinophils % (Manual) Basophils % (Manual) Seg Neutrophils # Seg Neutrophils # Man Lymphocytes # (Manual) Monocytes # (Manual) Eosinophils # (Manual) Nucleated RBC % Basophils # (Manual) PT INR APTT Heparin Anti-Xa Level ABG pH POC ABG pO2 ABG pO2 ABG HCO3 ABG O2 Saturation ABG Base Excess POC ABG pCO2 ABG Hemoglobin ABG Oxyhemoglobin ABG Sodium ABG Chloride ABG Glucose Oxyhemoglobin Sodium Potassium Chloride Carbon Dioxide BUN Creatinine Glucose POC Glucose 171 H 114 H 155 H Lactic Acid Calcium Phosphorus Magnesium AST ALT Lactate Dehydrogenase Total Bilirubin Direct Bilirubin CK-MB (CK-2) C-Reactive Protein NT-Pro-B Natriuret Pep Total Protein Albumin Arterial Blood Glucose Urine WBC (Auto) Urine Creatinine 03/06/20 03/06/20 03/07/20 17:27 23:48 06:02 WBC RBC Hgb Hct MCHC RDW MCV MCH Lymph % (Auto) [place] % (Auto) [place] # Eos # Lymph # (Auto) [place] # (Auto) Eos # (Auto) Seg Neutrophils % Seg Neuts % (Manual) Baso # (Auto) Lymphocytes % (Manual) Monocytes % (Manual) Eosinophils % (Manual) Basophils % (Manual) Seg Neutrophils # Seg Neutrophils # Man Lymphocytes # (Manual) Monocytes # (Manual) Eosinophils # (Manual) Nucleated RBC % Basophils # (Manual) PT INR APTT Heparin Anti-Xa Level ABG pH POC ABG pO2 ABG pO2 ABG HCO3 ABG O2 Saturation ABG Base Excess POC ABG pCO2 ABG Hemoglobin ABG Oxyhemoglobin ABG Sodium ABG Chloride ABG Glucose Oxyhemoglobin Sodium Potassium Chloride Carbon Dioxide BUN Creatinine Glucose POC Glucose 116 H 142 H 161 H Lactic Acid Calcium Phosphorus Magnesium AST ALT Lactate Dehydrogenase Total Bilirubin Direct Bilirubin CK-MB (CK-2) C-Reactive Protein NT-Pro-B Natriuret Pep Total Protein Albumin Arterial Blood Glucose Urine WBC (Auto) Urine Creatinine 03/07/20 03/08/20 03/08/20 11:36 05:18 11:51 WBC RBC Hgb Hct MCHC RDW MCV MCH Lymph % (Auto) [place] % (Auto) [place] # Eos # Lymph # (Auto) [place] # (Auto) Eos # (Auto) Seg Neutrophils % Seg Neuts % (Manual) Baso # (Auto) Lymphocytes % (Manual) Monocytes % (Manual) Eosinophils % (Manual) Basophils % (Manual) Seg Neutrophils # Seg Neutrophils # Man Lymphocytes # (Manual) Monocytes # (Manual) Eosinophils # (Manual) Nucleated RBC % Basophils # (Manual) PT INR APTT Heparin Anti-Xa Level ABG pH POC ABG pO2 ABG pO2 ABG HCO3 ABG O2 Saturation ABG Base Excess POC ABG pCO2 ABG Hemoglobin ABG Oxyhemoglobin ABG Sodium ABG Chloride ABG Glucose Oxyhemoglobin Sodium Potassium Chloride Carbon Dioxide BUN Creatinine Glucose POC Glucose 127 H 142 H 135 H Lactic Acid Calcium Phosphorus Magnesium AST ALT Lactate Dehydrogenase Total Bilirubin Direct Bilirubin CK-MB (CK-2) C-Reactive Protein NT-Pro-B Natriuret Pep Total Protein Albumin Arterial Blood Glucose Urine WBC (Auto) Urine Creatinine 03/08/20 03/08/20 03/09/20 18:14 23:45 05:36 WBC RBC Hgb Hct MCHC RDW MCV MCH Lymph % (Auto) [place] % (Auto) [place] # Eos # Lymph # (Auto) [place] # (Auto) Eos # (Auto) Seg Neutrophils % Seg Neuts % (Manual) Baso # (Auto) Lymphocytes % (Manual) Monocytes % (Manual) Eosinophils % (Manual) Basophils % (Manual) Seg Neutrophils # Seg Neutrophils # Man Lymphocytes # (Manual) Monocytes # (Manual) Eosinophils # (Manual) Nucleated RBC % Basophils # (Manual) PT INR APTT Heparin Anti-Xa Level ABG pH POC ABG pO2 ABG pO2 ABG HCO3 ABG O2 Saturation ABG Base Excess POC ABG pCO2 ABG Hemoglobin ABG Oxyhemoglobin ABG Sodium ABG Chloride ABG Glucose Oxyhemoglobin Sodium Potassium Chloride Carbon Dioxide BUN Creatinine Glucose POC Glucose 125 H 143 H 158 H Lactic Acid Calcium Phosphorus Magnesium AST ALT Lactate Dehydrogenase Total Bilirubin Direct Bilirubin CK-MB (CK-2) C-Reactive Protein NT-Pro-B Natriuret Pep Total Protein Albumin Arterial Blood Glucose Urine WBC (Auto) Urine Creatinine 03/09/20 03/09/20 03/09/20 06:32 06:32 11:34 WBC RBC Hgb 9.8 L Hct 31.6 L MCHC 31 L RDW 23.1 H MCV 80 L MCH 25 L Lymph % (Auto) 35.1 H [place] % (Auto) 11.4 H [place] # Eos # Lymph # (Auto) [place] # (Auto) Eos # (Auto) Seg Neutrophils % Seg Neuts % (Manual) Baso # (Auto) Lymphocytes % (Manual) Monocytes % (Manual) Eosinophils % (Manual) Basophils % (Manual) Seg Neutrophils # Seg Neutrophils # Man Lymphocytes # (Manual) Monocytes # (Manual) Eosinophils # (Manual) Nucleated RBC % Basophils # (Manual) PT INR APTT Heparin Anti-Xa Level ABG pH POC ABG pO2 ABG pO2 ABG HCO3 ABG O2 Saturation ABG Base Excess POC ABG pCO2 ABG Hemoglobin ABG Oxyhemoglobin ABG Sodium ABG Chloride ABG Glucose Oxyhemoglobin Sodium 136 L Potassium Chloride Carbon Dioxide BUN 25 H Creatinine 0.6 L Glucose 170 H POC Glucose 140 H Lactic Acid Calcium Phosphorus Magnesium AST ALT Lactate Dehydrogenase Total Bilirubin Direct Bilirubin CK-MB (CK-2) C-Reactive Protein NT-Pro-B Natriuret Pep Total Protein Albumin Arterial Blood Glucose Urine WBC (Auto) Urine Creatinine 03/09/20 03/09/20 03/10/20 18:10 23:11 05:41 WBC RBC Hgb Hct MCHC RDW MCV MCH Lymph % (Auto) [place] % (Auto) [place] # Eos # Lymph # (Auto) [place] # (Auto) Eos # (Auto) Seg Neutrophils % Seg Neuts % (Manual) Baso # (Auto) Lymphocytes % (Manual) Monocytes % (Manual) Eosinophils % (Manual) Basophils % (Manual) Seg Neutrophils # Seg Neutrophils # Man Lymphocytes # (Manual) Monocytes # (Manual) Eosinophils # (Manual) Nucleated RBC % Basophils # (Manual) PT INR APTT Heparin Anti-Xa Level ABG pH POC ABG pO2 ABG pO2 ABG HCO3 ABG O2 Saturation ABG Base Excess POC ABG pCO2 ABG Hemoglobin ABG Oxyhemoglobin ABG Sodium ABG Chloride ABG Glucose Oxyhemoglobin Sodium Potassium Chloride Carbon Dioxide BUN Creatinine Glucose POC Glucose 153 H 111 H 138 H Lactic Acid Calcium Phosphorus Magnesium AST ALT Lactate Dehydrogenase Total Bilirubin Direct Bilirubin CK-MB (CK-2) C-Reactive Protein NT-Pro-B Natriuret Pep Total Protein Albumin Arterial Blood Glucose Urine WBC (Auto) Urine Creatinine 03/10/20 03/10/20 03/10/20 11:15 17:58 23:36 WBC RBC Hgb Hct MCHC RDW MCV MCH Lymph % (Auto) [place] % (Auto) [place] # Eos # Lymph # (Auto) [place] # (Auto) Eos # (Auto) Seg Neutrophils % Seg Neuts % (Manual) Baso # (Auto) Lymphocytes % (Manual) Monocytes % (Manual) Eosinophils % (Manual) Basophils % (Manual) Seg Neutrophils # Seg Neutrophils # Man Lymphocytes # (Manual) Monocytes # (Manual) Eosinophils # (Manual) Nucleated RBC % Basophils # (Manual) PT INR APTT Heparin Anti-Xa Level ABG pH POC ABG pO2 ABG pO2 ABG HCO3 ABG O2 Saturation ABG Base Excess POC ABG pCO2 ABG Hemoglobin ABG Oxyhemoglobin ABG Sodium ABG Chloride ABG Glucose Oxyhemoglobin Sodium Potassium Chloride Carbon Dioxide BUN Creatinine Glucose POC Glucose 141 H 149 H 148 H Lactic Acid Calcium Phosphorus Magnesium AST ALT Lactate Dehydrogenase Total Bilirubin Direct Bilirubin CK-MB (CK-2) C-Reactive Protein NT-Pro-B Natriuret Pep Total Protein Albumin Arterial Blood Glucose Urine WBC (Auto) Urine Creatinine 03/11/20 03/11/20 03/12/20 05:55 17:43 04:45 WBC RBC Hgb Hct MCHC RDW MCV MCH Lymph % (Auto) [place] % (Auto) [place] # Eos # Lymph # (Auto) [place] # (Auto) Eos # (Auto) Seg Neutrophils % Seg Neuts % (Manual) Baso # (Auto) Lymphocytes % (Manual) Monocytes % (Manual) Eosinophils % (Manual) Basophils % (Manual) Seg Neutrophils # Seg Neutrophils # Man Lymphocytes # (Manual) Monocytes # (Manual) Eosinophils # (Manual) Nucleated RBC % Basophils # (Manual) PT INR APTT Heparin Anti-Xa Level ABG pH 7.454 H POC ABG pO2 69.2 L ABG pO2 ABG HCO3 ABG O2 Saturation ABG Base Excess POC ABG pCO2 ABG Hemoglobin 11.2 L ABG Oxyhemoglobin ABG Sodium 134.7 L ABG Chloride ABG Glucose 151 H Oxyhemoglobin Sodium Potassium Chloride Carbon Dioxide BUN Creatinine Glucose POC Glucose 181 H 107 H Lactic Acid Calcium Phosphorus Magnesium AST ALT Lactate Dehydrogenase Total Bilirubin Direct Bilirubin CK-MB (CK-2) C-Reactive Protein NT-Pro-B Natriuret Pep Total Protein Albumin Arterial Blood Glucose 151 H Urine WBC (Auto) Urine Creatinine 03/12/20 05:36 WBC RBC Hgb Hct MCHC RDW MCV MCH Lymph % (Auto) [place] % (Auto) [place] # Eos # Lymph # (Auto) [place] # (Auto) Eos # (Auto) Seg Neutrophils % Seg Neuts % (Manual) Baso # (Auto) Lymphocytes % (Manual) Monocytes % (Manual) Eosinophils % (Manual) Basophils % (Manual) Seg Neutrophils # Seg Neutrophils # Man Lymphocytes # (Manual) Monocytes # (Manual) Eosinophils # (Manual) Nucleated RBC % Basophils # (Manual) PT INR APTT Heparin Anti-Xa Level ABG pH POC ABG pO2 ABG pO2 ABG HCO3 ABG O2 Saturation ABG Base Excess POC ABG pCO2 ABG Hemoglobin ABG Oxyhemoglobin ABG Sodium ABG Chloride ABG Glucose Oxyhemoglobin Sodium Potassium Chloride Carbon Dioxide BUN Creatinine Glucose POC Glucose 137 H Lactic Acid Calcium Phosphorus Magnesium AST ALT Lactate Dehydrogenase Total Bilirubin Direct Bilirubin CK-MB (CK-2) C-Reactive Protein NT-Pro-B Natriuret Pep Total Protein Albumin Arterial Blood Glucose Urine WBC (Auto) Urine Creatinine Allied health notes reviewed: RT
--- NOTE | 2020-03-12 13:59 | Progress Note ---
Assessment and Plan - Patient Problems (1) Paroxysmal atrial fibrillation Current Visit: Yes Status: Acute Plan to address problem: Continue current management of atrial fibrillation, stable cardiac status. Subjective Date of service: 03/12/20 Principal diagnosis: Ac hypoxemic resp failure; Pneumonia; PUI COVID-19; CHF; COPD; HTN Interval history: Patient is awake, on trach vent. Atrial fibrillation at 110. Objective Vital Signs Temp Pulse Pulse Resp BP Pulse Ox Pulse Ox 03/12/20 13:01 106 H 14 81/61 100 03/12/20 12:14 113 H 97/70 100 03/12/20 12:00 97.8 F 120 H 120 H 16 97/70 100 03/12/20 11:01 108 H 17 93/71 100 03/12/20 10:01 124 H 17 96/74 03/12/20 09:03 116 H 96/74 03/12/20 09:00 108 H 18 96/74 98 03/12/20 08:39 116 H 115/69 97 03/12/20 08:02 109 H 10 L 115/69 99 03/12/20 08:00 97.3 F L 120 H 120 H 24 96 03/12/20 07:00 133 H 21 102/69 88 03/12/20 06:01 114 H 18 102/69 100 03/12/20 05:01 124 H 15 72/56 100 03/12/20 05:00 95 03/12/20 04:55 112 H 101/72 95 03/12/20 04:01 130 H 21 107/84 100 03/12/20 04:00 129 H 129 H 24 96 03/12/20 03:36 97.4 F L 03/12/20 03:01 123 H 21 108/76 97 03/12/20 02:00 115 H 16 108/81 98 03/12/20 01:00 118 H 21 108/81 97 03/12/20 00:01 108 H 15 98/74 100 03/12/20 00:00 97.8 F 112 H 112 H 18 100 03/11/20 23:54 125 H 99 03/11/20 23:01 118 H 14 97/62 100 03/11/20 22:54 126 H 127/107 03/11/20 22:01 109 H 16 102/71 99 03/11/20 21:00 119 H 18 102/71 98 03/11/20 20:41 123 H 20 92/67 100 03/11/20 20:36 98 03/11/20 20:35 120 H 98 03/11/20 20:01 102 H 16 92/67 98 03/11/20 20:00 107 H 107 H 17 100 03/11/20 19:50 98.4 F 03/11/20 19:00 111 H 14 81/63 100 03/11/20 18:24 125 H 03/11/20 18:01 107 H 16 93/68 97 03/11/20 17:01 106 H 17 93/59 99 03/11/20 17:00 119 H 93/59 100 03/11/20 16:00 98.1 F 105 H 16 111/68 97 03/11/20 15:00 121 H 16 100/70 100 03/11/20 14:00 107 H 19 94/72 99 - Physical Examination General: Other (s/p trach) HEENT: Positive: PERRL Neck: Positive: neck supple, Other (s/p trach) Cardiac: Positive: irregularly irregular Lungs: Positive: Decreased Breath Sounds Neuro: Positive: Weakness Abdomen: Positive: Soft Skin: Positive: Clear Extremities: Absent: edema - Allied health notes Allied health notes reviewed: RT
[2020-03-12] MEDS: DIGOXIN 0.125 MG TAB PO SCH (16:26)
[2020-03-12] MEDS: ACETAMINOPHEN 325 MG/10.15 ML ORAL LIQD UNIT DOSE FEEDTUBE PRN (19:37)
[2020-03-12] MEDS: TAMSULOSIN 0.4 MG CAP PO SCH (22:44)
[2020-03-12] MEDS: POLYETHYLENE GLYCOL 3350 17 GM POWDER PO SCH (22:45)
[2020-03-13] MEDS: INSULIN REGULAR, HUMAN 100 UNIT/ML 3ML VIAL SUB-Q SCH ×5 (00:01→23:28)
[2020-03-13] MEDS: METOPROLOL TARTRATE 25 MG TAB FEEDTUBE SCH ×3 (00:01→23:29)
[2020-03-13] MEDS: QUEtiapine 100 MG TAB PO SCH ×2 (09:52→23:24)
[2020-03-13] MEDS: APIXABAN 5 MG TAB PO SCH ×2 (09:53→23:24)
[2020-03-13] MEDS: LANSOPRAZOLE 30 MG SOLUTAB FEEDTUBE SCH (09:53)
[2020-03-13] MEDS: GLYCOPYRROLATE 2 MG TAB PO SCH ×3 (09:53→23:23)
[2020-03-13] MEDS: DOCUSATE SODIUM 100 MG/10 ML ORAL LIQD FEEDTUBE SCH ×2 (09:53→23:24)
[2020-03-13] MEDS: MIDODRINE 5 MG TAB PO SCH ×3 (09:53→16:22)
[2020-03-13] MEDS: CLOPIDOGREL 75 MG TAB PO SCH (09:53)
--- NOTE | 2020-03-13 10:28 | Progress Note ---
Assessment and Plan Acute hypoxemic respiratory failure s/p trach Bilateral pneumonia, community acquired. Acute LLL branch P.E. Acute DVT Acute congestive heart failure exacerbation. History of cerebrovascular accident. Acute chronic obstructive pulmonary disease exacerbation. Hypertension and hypertensive urgency at presentation. History of arthritis. Leukocytosis. Lactic acidosis. Oropharyngeal dysphagia s/p PEG - continue daily SATs and SBT assessment as tolerated -Colace, Reglan for bowel regimen -Tube feedings and monitor -Conitnue to maintain sleep- wake cycle - continue prn haldol for agitation to avoid hypoventilation - continue Flomax - Midodrine for blood pressure - prn mucomyst nebs re: secretions - continue full anticoagulation with Apixaban - continue seroquel for anxiolysis / delirium - continue to wean oxygen for O2 sats > 92% - continue bronchodilators with routine trach care and pulmonary hygiene per RT - continue Robinul & Scopolamine for secretion control - VAP bundle addressed (Aspiration precautions, HOB >40) - continue to wean per pulmonary driven protocols - continue prn analgesia per CPOT score - Avoid delirium (no benzodiazepines if they can be avoided) - Maintain sleep-wake cycle - enteral nutrition at goal rate as tolerated - continue accuchecks with glycemic control per SSI for target blood glucose goal of 140-180 mg/dL while critically ill; Avoid hypoglycemia - for VTE he is on IV Heparin - continue stress ulcer prophylaxis with Famotidine - continue mobility protocols for pressure ulcer prevention - continue fall precautions - continue wound care management per RN / WCT - Supportive transfusions to keep HgB>7g/dL - Continue to monitor neurologic function - Continue all supportive care ........ re-evaluate in am & prn CONDITION: CRITICAL PROGNOSIS: GUARDED CODE STATUS: FULL CODE The high probability of a clinically significant, sudden or life threatening deterioration of the [Respiratory, cardiovascular & neurological] system(s) required my full and direct attention, intervention and personal management. The aggregate critical care time was [32] minutes without overlap. Time includes spent on [x] Data Review and interpretation [x] Patient assessment and monitoring of vital signs [x] Documentation [x] Medication orders and management Subjective Date of service: 03/13/20 Principal diagnosis: Ac hypoxemic resp failure; Pneumonia; PUI COVID-19; CHF; COPD; HTN Interval history: Patient is seen today for: Acute hypoxemic respiratory failure; Adan. Pneumonia (CAP); PUI COVID-19 infection; AE-CHF; AE-COPD; H/O CVA; HTN; PE, DVT Seen and examined at bedside; 24 hour events reviewed; nursing and respiratory care staff consulted; no adverse overnight events reported to me; resting peacefully in bed; s/p trach on full support, awake and alert ,did not tolerate PSV today. When placed on PSV, he had increased work of breathing with complaints that he cannot breathe No further episodes of vomiting Size#6 Shiley, Mouths words to make needs known, is interactive Objective Vital Signs - 12hr 03/12/20 03/12/20 03/12/20 23:00 23:55 23:58 Temperature 97.6 F Pulse Rate 111 H 122 H Respiratory 16 Rate Blood Pressure 107/68 107/68 O2 Sat by Pulse 100 100 Oximetry O2 Sat by Pulse Oximetry [ Assessment] 03/13/20 03/13/20 03/13/20 00:01 00:37 01:01 Temperature Pulse Rate 115 H 125 H 121 H Respiratory 19 18 Rate Blood Pressure 92/55 111/80 O2 Sat by Pulse 100 100 Oximetry O2 Sat by Pulse Oximetry [ Assessment] 03/13/20 03/13/20 03/13/20 02:01 03:01 03:23 Temperature 97.4 F L Pulse Rate 116 H 109 H Respiratory 17 17 Rate Blood Pressure 111/80 102/77 O2 Sat by Pulse 97 99 Oximetry O2 Sat by Pulse Oximetry [ Assessment] 03/13/20 03/13/20 03/13/20 03:39 04:00 04:47 Temperature Pulse Rate 101 H 134 H 118 H Respiratory 16 Rate Blood Pressure 108/86 108/86 O2 Sat by Pulse 100 100 Oximetry O2 Sat by Pulse Oximetry [ Assessment] 03/13/20 03/13/20 03/13/20 04:49 05:01 06:00 Temperature Pulse Rate 107 H 116 H Respiratory 16 16 Rate Blood Pressure 104/77 96/78 O2 Sat by Pulse 100 100 Oximetry O2 Sat by Pulse 100 Oximetry [ Assessment] 03/13/20 03/13/20 03/13/20 07:01 08:00 09:00 Temperature 97.8 F Pulse Rate 114 H 116 H 124 H Respiratory 13 15 16 Rate Blood Pressure 104/82 101/79 109/74 O2 Sat by Pulse 100 100 100 Oximetry O2 Sat by Pulse Oximetry [ Assessment] 03/13/20 03/13/20 09:04 10:01 Temperature Pulse Rate 117 H 119 H Respiratory 19 Rate Blood Pressure 109/74 102/74 O2 Sat by Pulse 100 100 Oximetry O2 Sat by Pulse Oximetry [ Assessment] Constitutional: alert, other (elelelderly and obese male, normocephalic with mildly increased respiratory effort at rest) Eyes: non-icteric ENT: oropharynx moist, other (+ midline tracheostomy) Neck: supple, no JVD Effort: mildly labored Ascultation: Bilateral: clear, diminished breath sounds, rhonchi, other (tracheal secretions ) Percussion: Bilateral: not dull Cardiovascular: irregular rhythm Gastrointestinal: normoactive bowel sounds, soft, non-tender, non-distended (protuberant), other (protuberant; PEG in place) Integumentary: normal Extremities: no cyanosis, pulses normal, no ischemia or petechiae, edema (bilateral lower) Neurologic: non-focal exam (moves extremities), pupils equal and round, other (intermittent agitation) Psychiatric: anxious CBC and BMP: 03/15/20 04:05 03/19/20 07:50 ABG, PT/INR, D-dimer: ABG ABG pH 7.454 (7.320-7.450) H 03/12/20 04:45 POC ABG pCO2 45.6 mmHg (32.0-48.0) 03/12/20 04:45 ABG pCO2 47.8 mm Hg 02/20/20 06:45 POC ABG pO2 69.2 mmHg (83-108) L 03/12/20 04:45 ABG pO2 88.7 mm Hg (80.0-90.0) 02/20/20 06:45 POC ABG HCO3 31.3 03/12/20 04:45 ABG O2 Saturation 97.2 % (95.0-99.0) 02/20/20 06:45 PT/INR, D-dimer PT 27.0 Sec. (12.2-14.9) H 02/07/20 15:03 INR 2.46 (0.87-1.13) H 02/07/20 15:03 Abnormal lab findings: Abnormal Labs 11/24/19 11/24/19 11/24/19 02:53 02:53 03:45 WBC 14.3 H RBC Hgb Hct MCHC RDW 17.2 H MCV MCH Lymph % (Auto) Hood % (Auto) Hood # Eos # Lymph # (Auto) Hood # (Auto) Eos # (Auto) Seg Neutrophils % Seg Neuts % (Manual) Baso # (Auto) Lymphocytes % (Manual) Monocytes % (Manual) Eosinophils % (Manual) Basophils % (Manual) Seg Neutrophils # Seg Neutrophils # Man 8.3 H Lymphocytes # (Manual) Monocytes # (Manual) 0.9 H Eosinophils # (Manual) Nucleated RBC % Basophils # (Manual) PT INR APTT Heparin Anti-Xa Level ABG pH 7.313 L POC ABG pO2 ABG pO2 102.8 H ABG HCO3 ABG O2 Saturation ABG Base Excess -2.9 L POC ABG pCO2 ABG Hemoglobin ABG Oxyhemoglobin ABG Sodium ABG Chloride ABG Glucose Oxyhemoglobin 93.9 L Sodium Potassium Chloride Carbon Dioxide BUN Creatinine Glucose 195 H POC Glucose Lactic Acid Calcium Phosphorus Magnesium AST ALT Lactate Dehydrogenase Total Bilirubin Direct Bilirubin CK-MB (CK-2) 4.3 H C-Reactive Protein NT-Pro-B Natriuret Pep 1181 H Total Protein Albumin Arterial Blood Glucose Urine WBC (Auto) Urine Creatinine 11/24/19 11/24/19 11/24/19 04:53 04:53 10:37 WBC RBC Hgb Hct MCHC RDW MCV MCH Lymph % (Auto) Hood % (Auto) Hood # Eos # Lymph # (Auto) Hood # (Auto) Eos # (Auto) Seg Neutrophils % Seg Neuts % (Manual) Baso # (Auto) Lymphocytes % (Manual) Monocytes % (Manual) Eosinophils % (Manual) Basophils % (Manual) Seg Neutrophils # Seg Neutrophils # Man Lymphocytes # (Manual) Monocytes # (Manual) Eosinophils # (Manual) Nucleated RBC % Basophils # (Manual) PT INR APTT Heparin Anti-Xa Level ABG pH POC ABG pO2 ABG pO2 ABG HCO3 ABG O2 Saturation ABG Base Excess POC ABG pCO2 ABG Hemoglobin ABG Oxyhemoglobin ABG Sodium ABG Chloride ABG Glucose Oxyhemoglobin Sodium Potassium Chloride Carbon Dioxide BUN Creatinine Glucose 162 H POC Glucose Lactic Acid 2.40 H* 2.50 H* Calcium Phosphorus Magnesium AST ALT Lactate Dehydrogenase 240 H Total Bilirubin Direct Bilirubin CK-MB (CK-2) C-Reactive Protein NT-Pro-B Natriuret Pep Total Protein Albumin Arterial Blood Glucose Urine WBC (Auto) Urine Creatinine 11/24/19 11/24/19 11/24/19 12:21 14:50 19:54 WBC RBC Hgb Hct MCHC RDW MCV MCH Lymph % (Auto) Hood % (Auto) Hood # Eos # Lymph # (Auto) Hood # (Auto) Eos # (Auto) Seg Neutrophils % Seg Neuts % (Manual) Baso # (Auto) Lymphocytes % (Manual) Monocytes % (Manual) Eosinophils % (Manual) Basophils % (Manual) Seg Neutrophils # Seg Neutrophils # Man Lymphocytes # (Manual) Monocytes # (Manual) Eosinophils # (Manual) Nucleated RBC % Basophils # (Manual) PT INR APTT Heparin Anti-Xa Level ABG pH POC ABG pO2 ABG pO2 ABG HCO3 ABG O2 Saturation ABG Base Excess POC ABG pCO2 ABG Hemoglobin ABG Oxyhemoglobin ABG Sodium ABG Chloride ABG Glucose Oxyhemoglobin Sodium Potassium Chloride Carbon Dioxide BUN Creatinine Glucose POC Glucose 145 H 143 H 124 H Lactic Acid Calcium Phosphorus Magnesium AST ALT Lactate Dehydrogenase Total Bilirubin Direct Bilirubin CK-MB (CK-2) C-Reactive Protein NT-Pro-B Natriuret Pep Total Protein Albumin Arterial Blood Glucose Urine WBC (Auto) Urine Creatinine 11/25/19 11/25/19 11/25/19 00:18 03:18 05:11 WBC 13.7 H RBC Hgb Hct MCHC RDW 17.1 H MCV MCH Lymph % (Auto) 10.8 L Hood % (Auto) 8.7 H Hood # 1.2 H Eos # Lymph # (Auto) Hood # (Auto) Eos # (Auto) Seg Neutrophils % 80.2 H Seg Neuts % (Manual) Baso # (Auto) Lymphocytes % (Manual) Monocytes % (Manual) Eosinophils % (Manual) Basophils % (Manual) Seg Neutrophils # 11.0 H Seg Neutrophils # Man Lymphocytes # (Manual) Monocytes # (Manual) Eosinophils # (Manual) Nucleated RBC % Basophils # (Manual) PT INR APTT Heparin Anti-Xa Level ABG pH 7.333 L POC ABG pO2 ABG pO2 61.2 L ABG HCO3 ABG O2 Saturation 90.2 L ABG Base Excess POC ABG pCO2 ABG Hemoglobin 13.7 L ABG Oxyhemoglobin ABG Sodium ABG Chloride ABG Glucose Oxyhemoglobin 88.2 L Sodium Potassium Chloride Carbon Dioxide BUN Creatinine Glucose POC Glucose 109 H Lactic Acid Calcium Phosphorus Magnesium AST ALT Lactate Dehydrogenase Total Bilirubin Direct Bilirubin CK-MB (CK-2) C-Reactive Protein NT-Pro-B Natriuret Pep Total Protein Albumin Arterial Blood Glucose Urine WBC (Auto) Urine Creatinine 11/25/19 11/25/19 11/26/19 05:11 11:40 03:12 WBC RBC Hgb Hct MCHC RDW MCV MCH Lymph % (Auto) Hood % (Auto) Hood # Eos # Lymph # (Auto) Hood # (Auto) Eos # (Auto) Seg Neutrophils % Seg Neuts % (Manual) Baso # (Auto) Lymphocytes % (Manual) Monocytes % (Manual) Eosinophils % (Manual) Basophils % (Manual) Seg Neutrophils # Seg Neutrophils # Man Lymphocytes # (Manual) Monocytes # (Manual) Eosinophils # (Manual) Nucleated RBC % Basophils # (Manual) PT INR APTT Heparin Anti-Xa Level ABG pH POC ABG pO2 ABG pO2 155.1 H ABG HCO3 27.8 H ABG O2 Saturation ABG Base Excess POC ABG pCO2 ABG Hemoglobin 12.2 L ABG Oxyhemoglobin ABG Sodium ABG Chloride ABG Glucose Oxyhemoglobin Sodium Potassium Chloride Carbon Dioxide BUN 23 H Creatinine Glucose 110 H POC Glucose 108 H Lactic Acid Calcium Phosphorus Magnesium AST ALT Lactate Dehydrogenase Total Bilirubin Direct Bilirubin CK-MB (CK-2) C-Reactive Protein NT-Pro-B Natriuret Pep Total Protein Albumin Arterial Blood Glucose Urine WBC (Auto) Urine Creatinine 11/26/19 11/26/19 11/26/19 06:17 10:43 10:43 WBC 11.4 H RBC Hgb Hct MCHC RDW 17.1 H MCV MCH Lymph % (Auto) Hood % (Auto) Hood # Eos # Lymph # (Auto) Hood # (Auto) Eos # (Auto) Seg Neutrophils % Seg Neuts % (Manual) Baso # (Auto) Lymphocytes % (Manual) Monocytes % (Manual) Eosinophils % (Manual) Basophils % (Manual) Seg Neutrophils # Seg Neutrophils # Man Lymphocytes # (Manual) Monocytes # (Manual) Eosinophils # (Manual) Nucleated RBC % Basophils # (Manual) PT INR APTT Heparin Anti-Xa Level ABG pH POC ABG pO2 ABG pO2 ABG HCO3 ABG O2 Saturation ABG Base Excess POC ABG pCO2 ABG Hemoglobin ABG Oxyhemoglobin ABG Sodium ABG Chloride ABG Glucose Oxyhemoglobin Sodium Potassium Chloride Carbon Dioxide BUN 29 H Creatinine Glucose POC Glucose 107 H Lactic Acid Calcium Phosphorus Magnesium AST ALT Lactate Dehydrogenase Total Bilirubin Direct Bilirubin CK-MB (CK-2) C-Reactive Protein NT-Pro-B Natriuret Pep Total Protein Albumin Arterial Blood Glucose Urine WBC (Auto) Urine Creatinine 11/26/19 11/27/19 11/27/19 17:11 01:53 04:11 WBC RBC Hgb Hct MCHC RDW MCV MCH Lymph % (Auto) Hood % (Auto) Hood # Eos # Lymph # (Auto) Hood # (Auto) Eos # (Auto) Seg Neutrophils % Seg Neuts % (Manual) Baso # (Auto) Lymphocytes % (Manual) Monocytes % (Manual) Eosinophils % (Manual) Basophils % (Manual) Seg Neutrophils # Seg Neutrophils # Man Lymphocytes # (Manual) Monocytes # (Manual) Eosinophils # (Manual) Nucleated RBC % Basophils # (Manual) PT INR APTT Heparin Anti-Xa Level ABG pH POC ABG pO2 ABG pO2 ABG HCO3 29.2 H ABG O2 Saturation ABG Base Excess 3.4 H POC ABG pCO2 ABG Hemoglobin 13.3 L ABG Oxyhemoglobin ABG Sodium ABG Chloride ABG Glucose Oxyhemoglobin 94.5 L Sodium Potassium Chloride Carbon Dioxide BUN Creatinine Glucose POC Glucose 113 H 108 H Lactic Acid Calcium Phosphorus Magnesium AST ALT Lactate Dehydrogenase Total Bilirubin Direct Bilirubin CK-MB (CK-2) C-Reactive Protein NT-Pro-B Natriuret Pep Total Protein Albumin Arterial Blood Glucose Urine WBC (Auto) Urine Creatinine 11/27/19 11/28/19 11/28/19 05:27 05:00 05:25 WBC RBC Hgb Hct MCHC RDW MCV MCH Lymph % (Auto) Hood % (Auto) Hood # Eos # Lymph # (Auto) Hood # (Auto) Eos # (Auto) Seg Neutrophils % Seg Neuts % (Manual) Baso # (Auto) Lymphocytes % (Manual) Monocytes % (Manual) Eosinophils % (Manual) Basophils % (Manual) Seg Neutrophils # Seg Neutrophils # Man Lymphocytes # (Manual) Monocytes # (Manual) Eosinophils # (Manual) Nucleated RBC % Basophils # (Manual) PT INR APTT Heparin Anti-Xa Level ABG pH POC ABG pO2 68.1 L ABG pO2 ABG HCO3 ABG O2 Saturation ABG Base Excess POC ABG pCO2 ABG Hemoglobin ABG Oxyhemoglobin 91.2 L ABG Sodium ABG Chloride ABG Glucose Oxyhemoglobin Sodium Potassium Chloride Carbon Dioxide BUN Creatinine Glucose POC Glucose 111 H 110 H Lactic Acid Calcium Phosphorus Magnesium AST ALT Lactate Dehydrogenase Total Bilirubin Direct Bilirubin CK-MB (CK-2) C-Reactive Protein NT-Pro-B Natriuret Pep Total Protein Albumin Arterial Blood Glucose Urine WBC (Auto) Urine Creatinine 11/28/19 11/28/19 11/28/19 12:08 13:47 13:47 WBC 11.3 H RBC Hgb Hct MCHC RDW 16.1 H MCV MCH Lymph % (Auto) Hood % (Auto) 9.9 H Hood # 1.1 H Eos # Lymph # (Auto) Hood # (Auto) Eos # (Auto) Seg Neutrophils % 71.4 H Seg Neuts % (Manual) Baso # (Auto) Lymphocytes % (Manual) Monocytes % (Manual) Eosinophils % (Manual) Basophils % (Manual) Seg Neutrophils # 8.1 H Seg Neutrophils # Man Lymphocytes # (Manual) Monocytes # (Manual) Eosinophils # (Manual) Nucleated RBC % Basophils # (Manual) PT INR APTT Heparin Anti-Xa Level ABG pH POC ABG pO2 ABG pO2 ABG HCO3 ABG O2 Saturation ABG Base Excess POC ABG pCO2 ABG Hemoglobin ABG Oxyhemoglobin ABG Sodium ABG Chloride ABG Glucose Oxyhemoglobin Sodium Potassium Chloride Carbon Dioxide BUN 23 H Creatinine Glucose 123 H POC Glucose 112 H Lactic Acid Calcium Phosphorus Magnesium AST ALT Lactate Dehydrogenase Total Bilirubin Direct Bilirubin CK-MB (CK-2) C-Reactive Protein NT-Pro-B Natriuret Pep Total Protein Albumin 3.7 L Arterial Blood Glucose Urine WBC (Auto) Urine Creatinine 11/28/19 11/29/19 11/29/19 17:26 03:55 17:04 WBC RBC Hgb Hct MCHC RDW MCV MCH Lymph % (Auto) Hood % (Auto) Hood # Eos # Lymph # (Auto) Hood # (Auto) Eos # (Auto) Seg Neutrophils % Seg Neuts % (Manual) Baso # (Auto) Lymphocytes % (Manual) Monocytes % (Manual) Eosinophils % (Manual) Basophils % (Manual) Seg Neutrophils # Seg Neutrophils # Man Lymphocytes # (Manual) Monocytes # (Manual) Eosinophils # (Manual) Nucleated RBC % Basophils # (Manual) PT INR APTT Heparin Anti-Xa Level ABG pH POC ABG pO2 ABG pO2 65.7 L ABG HCO3 28.3 H ABG O2 Saturation 93.9 L ABG Base Excess 3.6 H POC ABG pCO2 ABG Hemoglobin 13.3 L ABG Oxyhemoglobin ABG Sodium ABG Chloride ABG Glucose Oxyhemoglobin 91.5 L Sodium Potassium Chloride Carbon Dioxide BUN Creatinine Glucose POC Glucose 123 H 119 H Lactic Acid Calcium Phosphorus Magnesium AST ALT Lactate Dehydrogenase Total Bilirubin Direct Bilirubin CK-MB (CK-2) C-Reactive Protein NT-Pro-B Natriuret Pep Total Protein Albumin Arterial Blood Glucose Urine WBC (Auto) Urine Creatinine 11/30/19 11/30/19 11/30/19 04:17 04:17 04:56 WBC 13.4 H RBC Hgb Hct MCHC RDW 15.6 H MCV MCH Lymph % (Auto) Hood % (Auto) Hood # Eos # Lymph # (Auto) Hood # (Auto) Eos # (Auto) Seg Neutrophils % Seg Neuts % (Manual) Baso # (Auto) Lymphocytes % (Manual) Monocytes % (Manual) Eosinophils % (Manual) Basophils % (Manual) Seg Neutrophils # Seg Neutrophils # Man Lymphocytes # (Manual) Monocytes # (Manual) Eosinophils # (Manual) Nucleated RBC % Basophils # (Manual) PT INR APTT Heparin Anti-Xa Level ABG pH POC ABG pO2 ABG pO2 56.3 L ABG HCO3 29.3 H ABG O2 Saturation 91.5 L ABG Base Excess 4.7 H POC ABG pCO2 ABG Hemoglobin 12.1 L ABG Oxyhemoglobin ABG Sodium ABG Chloride ABG Glucose Oxyhemoglobin 89.2 L Sodium 147 H Potassium Chloride Carbon Dioxide BUN 30 H Creatinine Glucose 124 H POC Glucose Lactic Acid Calcium Phosphorus Magnesium AST ALT Lactate Dehydrogenase Total Bilirubin Direct Bilirubin CK-MB (CK-2) C-Reactive Protein NT-Pro-B Natriuret Pep Total Protein Albumin 3.8 L Arterial Blood Glucose Urine WBC (Auto) Urine Creatinine 11/30/19 11/30/19 11/30/19 05:51 11:54 18:17 WBC RBC Hgb Hct MCHC RDW MCV MCH Lymph % (Auto) Hood % (Auto) Hood # Eos # Lymph # (Auto) Hood # (Auto) Eos # (Auto) Seg Neutrophils % Seg Neuts % (Manual) Baso # (Auto) Lymphocytes % (Manual) Monocytes % (Manual) Eosinophils % (Manual) Basophils % (Manual) Seg Neutrophils # Seg Neutrophils # Man Lymphocytes # (Manual) Monocytes # (Manual) Eosinophils # (Manual) Nucleated RBC % Basophils # (Manual) PT INR APTT Heparin Anti-Xa Level ABG pH POC ABG pO2 ABG pO2 ABG HCO3 ABG O2 Saturation ABG Base Excess POC ABG pCO2 ABG Hemoglobin ABG Oxyhemoglobin ABG Sodium ABG Chloride ABG Glucose Oxyhemoglobin Sodium Potassium Chloride Carbon Dioxide BUN Creatinine Glucose POC Glucose 127 H 115 H 143 H Lactic Acid Calcium Phosphorus Magnesium AST ALT Lactate Dehydrogenase Total Bilirubin Direct Bilirubin CK-MB (CK-2) C-Reactive Protein NT-Pro-B Natriuret Pep Total Protein Albumin Arterial Blood Glucose Urine WBC (Auto) Urine Creatinine 12/01/19 12/01/19 12/01/19 01:18 05:22 12:16 WBC RBC Hgb Hct MCHC RDW MCV MCH Lymph % (Auto) Hood % (Auto) Hood # Eos # Lymph # (Auto) Hood # (Auto) Eos # (Auto) Seg Neutrophils % Seg Neuts % (Manual) Baso # (Auto) Lymphocytes % (Manual) Monocytes % (Manual) Eosinophils % (Manual) Basophils % (Manual) Seg Neutrophils # Seg Neutrophils # Man Lymphocytes # (Manual) Monocytes # (Manual) Eosinophils # (Manual) Nucleated RBC % Basophils # (Manual) PT INR APTT Heparin Anti-Xa Level ABG pH POC ABG pO2 ABG pO2 ABG HCO3 ABG O2 Saturation ABG Base Excess POC ABG pCO2 ABG Hemoglobin ABG Oxyhemoglobin ABG Sodium ABG Chloride ABG Glucose Oxyhemoglobin Sodium Potassium 3.5 L Chloride 107.8 H Carbon Dioxide BUN 37 H Creatinine Glucose 157 H POC Glucose 118 H 148 H Lactic Acid Calcium 8.2 L D Phosphorus Magnesium AST 48 H ALT 60 H Lactate Dehydrogenase 194 H Total Bilirubin Direct Bilirubin CK-MB (CK-2) C-Reactive Protein 8.50 H NT-Pro-B Natriuret Pep Total Protein 5.5 L Albumin 2.8 L Arterial Blood Glucose Urine WBC (Auto) Urine Creatinine 12/01/19 12/02/19 12/02/19 18:04 00:05 05:16 WBC 11.4 H RBC Hgb Hct MCHC RDW 15.9 H MCV MCH Lymph % (Auto) Hood % (Auto) 9.9 H Hood # 1.1 H Eos # Lymph # (Auto) Hood # (Auto) Eos # (Auto) Seg Neutrophils % 70.3 H Seg Neuts % (Manual) Baso # (Auto) Lymphocytes % (Manual) Monocytes % (Manual) Eosinophils % (Manual) Basophils % (Manual) Seg Neutrophils # 8.0 H Seg Neutrophils # Man Lymphocytes # (Manual) Monocytes # (Manual) Eosinophils # (Manual) Nucleated RBC % Basophils # (Manual) PT INR APTT Heparin Anti-Xa Level ABG pH POC ABG pO2 ABG pO2 ABG HCO3 ABG O2 Saturation ABG Base Excess POC ABG pCO2 ABG Hemoglobin ABG Oxyhemoglobin ABG Sodium ABG Chloride ABG Glucose Oxyhemoglobin Sodium Potassium Chloride Carbon Dioxide BUN Creatinine Glucose POC Glucose 143 H 107 H Lactic Acid Calcium Phosphorus Magnesium AST ALT Lactate Dehydrogenase Total Bilirubin Direct Bilirubin CK-MB (CK-2) C-Reactive Protein NT-Pro-B Natriuret Pep Total Protein Albumin Arterial Blood Glucose Urine WBC (Auto) Urine Creatinine 12/02/19 12/02/19 12/02/19 05:16 06:03 11:52 WBC RBC Hgb Hct MCHC RDW MCV MCH Lymph % (Auto) Hood % (Auto) Hood # Eos # Lymph # (Auto) Hood # (Auto) Eos # (Auto) Seg Neutrophils % Seg Neuts % (Manual) Baso # (Auto) Lymphocytes % (Manual) Monocytes % (Manual) Eosinophils % (Manual) Basophils % (Manual) Seg Neutrophils # Seg Neutrophils # Man Lymphocytes # (Manual) Monocytes # (Manual) Eosinophils # (Manual) Nucleated RBC % Basophils # (Manual) PT INR APTT Heparin Anti-Xa Level ABG pH POC ABG pO2 ABG pO2 ABG HCO3 ABG O2 Saturation ABG Base Excess POC ABG pCO2 ABG Hemoglobin ABG Oxyhemoglobin ABG Sodium ABG Chloride ABG Glucose Oxyhemoglobin Sodium 146 H Potassium Chloride Carbon Dioxide BUN 28 H Creatinine Glucose 123 H POC Glucose 110 H 152 H Lactic Acid Calcium Phosphorus Magnesium AST ALT Lactate Dehydrogenase Total Bilirubin Direct Bilirubin CK-MB (CK-2) C-Reactive Protein NT-Pro-B Natriuret Pep Total Protein Albumin Arterial Blood Glucose Urine WBC (Auto) Urine Creatinine 12/02/19 12/02/19 12/02/19 12:58 17:58 23:36 WBC RBC Hgb Hct MCHC RDW MCV MCH Lymph % (Auto) Hood % (Auto) Hood # Eos # Lymph # (Auto) Hood # (Auto) Eos # (Auto) Seg Neutrophils % Seg Neuts % (Manual) Baso # (Auto) Lymphocytes % (Manual) Monocytes % (Manual) Eosinophils % (Manual) Basophils % (Manual) Seg Neutrophils # Seg Neutrophils # Man Lymphocytes # (Manual) Monocytes # (Manual) Eosinophils # (Manual) Nucleated RBC % Basophils # (Manual) PT INR APTT Heparin Anti-Xa Level ABG pH POC ABG pO2 78.1 L ABG pO2 ABG HCO3 ABG O2 Saturation ABG Base Excess POC ABG pCO2 ABG Hemoglobin ABG Oxyhemoglobin ABG Sodium ABG Chloride ABG Glucose Oxyhemoglobin Sodium Potassium Chloride Carbon Dioxide BUN Creatinine Glucose POC Glucose 120 H 123 H Lactic Acid Calcium Phosphorus Magnesium AST ALT Lactate Dehydrogenase Total Bilirubin Direct Bilirubin CK-MB (CK-2) C-Reactive Protein NT-Pro-B Natriuret Pep Total Protein Albumin Arterial Blood Glucose Urine WBC (Auto) Urine Creatinine 12/03/19 12/03/19 12/03/19 06:03 06:14 11:46 WBC RBC Hgb Hct MCHC RDW MCV MCH Lymph % (Auto) Hood % (Auto) Hood # Eos # Lymph # (Auto) Hood # (Auto) Eos # (Auto) Seg Neutrophils % Seg Neuts % (Manual) Baso # (Auto) Lymphocytes % (Manual) Monocytes % (Manual) Eosinophils % (Manual) Basophils % (Manual) Seg Neutrophils # Seg Neutrophils # Man Lymphocytes # (Manual) Monocytes # (Manual) Eosinophils # (Manual) Nucleated RBC % Basophils # (Manual) PT INR APTT Heparin Anti-Xa Level ABG pH POC ABG pO2 ABG pO2 ABG HCO3 ABG O2 Saturation ABG Base Excess POC ABG pCO2 ABG Hemoglobin ABG Oxyhemoglobin ABG Sodium ABG Chloride ABG Glucose Oxyhemoglobin Sodium Potassium Chloride Carbon Dioxide BUN Creatinine Glucose POC Glucose 142 H 130 H Lactic Acid Calcium Phosphorus Magnesium AST ALT Lactate Dehydrogenase Total Bilirubin Direct Bilirubin CK-MB (CK-2) C-Reactive Protein NT-Pro-B Natriuret Pep Total Protein Albumin Arterial Blood Glucose Urine WBC (Auto) 8.0 H Urine Creatinine 12/03/19 12/03/19 12/04/19 15:50 17:39 00:04 WBC RBC Hgb Hct MCHC RDW MCV MCH Lymph % (Auto) Hood % (Auto) Hood # Eos # Lymph # (Auto) Hood # (Auto) Eos # (Auto) Seg Neutrophils % Seg Neuts % (Manual) Baso # (Auto) Lymphocytes % (Manual) Monocytes % (Manual) Eosinophils % (Manual) Basophils % (Manual) Seg Neutrophils # Seg Neutrophils # Man Lymphocytes # (Manual) Monocytes # (Manual) Eosinophils # (Manual) Nucleated RBC % Basophils # (Manual) PT INR APTT Heparin Anti-Xa Level ABG pH POC ABG pO2 ABG pO2 ABG HCO3 ABG O2 Saturation ABG Base Excess POC ABG pCO2 ABG Hemoglobin ABG Oxyhemoglobin ABG Sodium ABG Chloride ABG Glucose Oxyhemoglobin Sodium Potassium Chloride Carbon Dioxide BUN Creatinine Glucose POC Glucose 146 H 133 H Lactic Acid Calcium Phosphorus 2.40 L Magnesium AST ALT Lactate Dehydrogenase Total Bilirubin Direct Bilirubin CK-MB (CK-2) C-Reactive Protein NT-Pro-B Natriuret Pep Total Protein Albumin Arterial Blood Glucose Urine WBC (Auto) Urine Creatinine 12/04/19 12/04/19 12/04/19 03:58 03:58 05:22 WBC 12.5 H RBC Hgb 11.2 L Hct 35.2 L MCHC RDW 16.0 H MCV MCH Lymph % (Auto) Hood % (Auto) 9.6 H Hood # 1.2 H Eos # 0.5 H Lymph # (Auto) Hood # (Auto) Eos # (Auto) Seg Neutrophils % Seg Neuts % (Manual) Baso # (Auto) Lymphocytes % (Manual) Monocytes % (Manual) Eosinophils % (Manual) Basophils % (Manual) Seg Neutrophils # 8.6 H Seg Neutrophils # Man Lymphocytes # (Manual) Monocytes # (Manual) Eosinophils # (Manual) Nucleated RBC % Basophils # (Manual) PT INR APTT Heparin Anti-Xa Level ABG pH POC ABG pO2 ABG pO2 ABG HCO3 ABG O2 Saturation ABG Base Excess POC ABG pCO2 ABG Hemoglobin ABG Oxyhemoglobin ABG Sodium ABG Chloride ABG Glucose Oxyhemoglobin Sodium 146 H Potassium Chloride 108.6 H Carbon Dioxide BUN 30 H Creatinine 0.7 L Glucose 121 H POC Glucose 132 H Lactic Acid Calcium Phosphorus Magnesium AST ALT Lactate Dehydrogenase Total Bilirubin Direct Bilirubin CK-MB (CK-2) C-Reactive Protein NT-Pro-B Natriuret Pep Total Protein Albumin Arterial Blood Glucose Urine WBC (Auto) Urine Creatinine 12/04/19 12/04/19 12/05/19 13:26 18:43 00:19 WBC RBC Hgb Hct MCHC RDW MCV MCH Lymph % (Auto) Hood % (Auto) Hood # Eos # Lymph # (Auto) Hood # (Auto) Eos # (Auto) Seg Neutrophils % Seg Neuts % (Manual) Baso # (Auto) Lymphocytes % (Manual) Monocytes % (Manual) Eosinophils % (Manual) Basophils % (Manual) Seg Neutrophils # Seg Neutrophils # Man Lymphocytes # (Manual) Monocytes # (Manual) Eosinophils # (Manual) Nucleated RBC % Basophils # (Manual) PT INR APTT Heparin Anti-Xa Level ABG pH POC ABG pO2 ABG pO2 ABG HCO3 ABG O2 Saturation ABG Base Excess POC ABG pCO2 ABG Hemoglobin ABG Oxyhemoglobin ABG Sodium ABG Chloride ABG Glucose Oxyhemoglobin Sodium Potassium Chloride Carbon Dioxide BUN Creatinine Glucose POC Glucose 185 H 156 H 150 H Lactic Acid Calcium Phosphorus Magnesium AST ALT Lactate Dehydrogenase Total Bilirubin Direct Bilirubin CK-MB (CK-2) C-Reactive Protein NT-Pro-B Natriuret Pep Total Protein Albumin Arterial Blood Glucose Urine WBC (Auto) Urine Creatinine 12/05/19 12/05/19 12/05/19 03:37 03:37 05:14 WBC 16.3 H RBC Hgb 11.4 L Hct MCHC RDW 15.6 H MCV MCH Lymph % (Auto) 9.9 L Hood % (Auto) 9.7 H Hood # 1.6 H Eos # Lymph # (Auto) Hood # (Auto) Eos # (Auto) Seg Neutrophils % 78.0 H Seg Neuts % (Manual) Baso # (Auto) Lymphocytes % (Manual) Monocytes % (Manual) Eosinophils % (Manual) Basophils % (Manual) Seg Neutrophils # 12.7 H Seg Neutrophils # Man Lymphocytes # (Manual) Monocytes # (Manual) Eosinophils # (Manual) Nucleated RBC % Basophils # (Manual) PT INR APTT Heparin Anti-Xa Level ABG pH POC ABG pO2 ABG pO2 ABG HCO3 ABG O2 Saturation ABG Base Excess POC ABG pCO2 ABG Hemoglobin ABG Oxyhemoglobin ABG Sodium ABG Chloride ABG Glucose Oxyhemoglobin Sodium 146 H Potassium Chloride 107.2 H Carbon Dioxide BUN 27 H Creatinine 0.7 L Glucose 171 H POC Glucose 168 H Lactic Acid Calcium Phosphorus Magnesium AST ALT Lactate Dehydrogenase Total Bilirubin Direct Bilirubin CK-MB (CK-2) C-Reactive Protein NT-Pro-B Natriuret Pep Total Protein Albumin Arterial Blood Glucose Urine WBC (Auto) Urine Creatinine 12/05/19 12/05/19 12/05/19 12:31 18:10 23:58 WBC RBC Hgb Hct MCHC RDW MCV MCH Lymph % (Auto) Hood % (Auto) Hood # Eos # Lymph # (Auto) Hood # (Auto) Eos # (Auto) Seg Neutrophils % Seg Neuts % (Manual) Baso # (Auto) Lymphocytes % (Manual) Monocytes % (Manual) Eosinophils % (Manual) Basophils % (Manual) Seg Neutrophils # Seg Neutrophils # Man Lymphocytes # (Manual) Monocytes # (Manual) Eosinophils # (Manual) Nucleated RBC % Basophils # (Manual) PT INR APTT Heparin Anti-Xa Level ABG pH POC ABG pO2 ABG pO2 ABG HCO3 ABG O2 Saturation ABG Base Excess POC ABG pCO2 ABG Hemoglobin ABG Oxyhemoglobin ABG Sodium ABG Chloride ABG Glucose Oxyhemoglobin Sodium Potassium Chloride Carbon Dioxide BUN Creatinine Glucose POC Glucose 159 H 198 H 115 H Lactic Acid Calcium Phosphorus Magnesium AST ALT Lactate Dehydrogenase Total Bilirubin Direct Bilirubin CK-MB (CK-2) C-Reactive Protein NT-Pro-B Natriuret Pep Total Protein Albumin Arterial Blood Glucose Urine WBC (Auto) Urine Creatinine 12/06/19 12/06/19 12/06/19 05:24 05:24 05:25 WBC 14.9 H RBC Hgb 10.8 L Hct 34.0 L MCHC RDW 15.6 H MCV MCH Lymph % (Auto) 10.7 L Hood % (Auto) 8.3 H Hood # 1.2 H Eos # Lymph # (Auto) Hood # (Auto) Eos # (Auto) Seg Neutrophils % 78.7 H Seg Neuts % (Manual) Baso # (Auto) Lymphocytes % (Manual) Monocytes % (Manual) Eosinophils % (Manual) Basophils % (Manual) Seg Neutrophils # 11.7 H Seg Neutrophils # Man Lymphocytes # (Manual) Monocytes # (Manual) Eosinophils # (Manual) Nucleated RBC % Basophils # (Manual) PT INR APTT Heparin Anti-Xa Level ABG pH POC ABG pO2 ABG pO2 ABG HCO3 ABG O2 Saturation ABG Base Excess POC ABG pCO2 ABG Hemoglobin ABG Oxyhemoglobin ABG Sodium ABG Chloride ABG Glucose Oxyhemoglobin Sodium 148 H Potassium 5.1 H Chloride 107.6 H Carbon Dioxide BUN 27 H Creatinine 0.7 L Glucose 155 H POC Glucose 157 H Lactic Acid Calcium Phosphorus Magnesium AST ALT Lactate Dehydrogenase Total Bilirubin Direct Bilirubin CK-MB (CK-2) C-Reactive Protein NT-Pro-B Natriuret Pep Total Protein Albumin Arterial Blood Glucose Urine WBC (Auto) Urine Creatinine 12/07/19 12/07/19 12/07/19 00:13 05:34 11:33 WBC RBC Hgb Hct MCHC RDW MCV MCH Lymph % (Auto) Hood % (Auto) Hood # Eos # Lymph # (Auto) Hood # (Auto) Eos # (Auto) Seg Neutrophils % Seg Neuts % (Manual) Baso # (Auto) Lymphocytes % (Manual) Monocytes % (Manual) Eosinophils % (Manual) Basophils % (Manual) Seg Neutrophils # Seg Neutrophils # Man Lymphocytes # (Manual) Monocytes # (Manual) Eosinophils # (Manual) Nucleated RBC % Basophils # (Manual) PT INR APTT Heparin Anti-Xa Level ABG pH POC ABG pO2 ABG pO2 ABG HCO3 ABG O2 Saturation ABG Base Excess POC ABG pCO2 ABG Hemoglobin ABG Oxyhemoglobin ABG Sodium ABG Chloride ABG Glucose Oxyhemoglobin Sodium Potassium Chloride Carbon Dioxide BUN Creatinine Glucose POC Glucose 142 H 111 H 169 H Lactic Acid Calcium Phosphorus Magnesium AST ALT Lactate Dehydrogenase Total Bilirubin Direct Bilirubin CK-MB (CK-2) C-Reactive Protein NT-Pro-B Natriuret Pep Total Protein Albumin Arterial Blood Glucose Urine WBC (Auto) Urine Creatinine 12/07/19 12/07/19 12/07/19 12:41 13:25 18:19 WBC 12.4 H RBC 3.53 L Hgb 10.2 L Hct 32.1 L MCHC RDW 15.3 H MCV MCH Lymph % (Auto) 10.6 L Hood % (Auto) 7.8 H Hood # 1.0 H Eos # Lymph # (Auto) Hood # (Auto) Eos # (Auto) Seg Neutrophils % 77.6 H Seg Neuts % (Manual) Baso # (Auto) Lymphocytes % (Manual) Monocytes % (Manual) Eosinophils % (Manual) Basophils % (Manual) Seg Neutrophils # 9.6 H Seg Neutrophils # Man Lymphocytes # (Manual) Monocytes # (Manual) Eosinophils # (Manual) Nucleated RBC % Basophils # (Manual) PT INR APTT Heparin Anti-Xa Level ABG pH POC ABG pO2 ABG pO2 ABG HCO3 ABG O2 Saturation ABG Base Excess POC ABG pCO2 ABG Hemoglobin ABG Oxyhemoglobin ABG Sodium ABG Chloride ABG Glucose Oxyhemoglobin Sodium 149 H Potassium Chloride 108.4 H Carbon Dioxide BUN 26 H Creatinine 0.6 L Glucose 149 H POC Glucose 164 H Lactic Acid Calcium Phosphorus Magnesium 2.60 H AST 121 H ALT 145 H Lactate Dehydrogenase Total Bilirubin Direct Bilirubin CK-MB (CK-2) C-Reactive Protein NT-Pro-B Natriuret Pep Total Protein Albumin 2.6 L Arterial Blood Glucose Urine WBC (Auto) Urine Creatinine 12/07/19 12/08/19 12/08/19 22:25 00:02 03:55 WBC 13.3 H RBC 3.40 L Hgb 9.7 L Hct 30.8 L MCHC 31 L RDW 15.5 H MCV MCH Lymph % (Auto) Hood % (Auto) 8.1 H Hood # 1.1 H Eos # Lymph # (Auto) Hood # (Auto) Eos # (Auto) Seg Neutrophils % 73.0 H Seg Neuts % (Manual) Baso # (Auto) Lymphocytes % (Manual) Monocytes % (Manual) Eosinophils % (Manual) Basophils % (Manual) Seg Neutrophils # 9.7 H Seg Neutrophils # Man Lymphocytes # (Manual) Monocytes # (Manual) Eosinophils # (Manual) Nucleated RBC % Basophils # (Manual) PT INR APTT Heparin Anti-Xa Level 0.12 L ABG pH POC ABG pO2 ABG pO2 ABG HCO3 ABG O2 Saturation ABG Base Excess POC ABG pCO2 ABG Hemoglobin ABG Oxyhemoglobin ABG Sodium ABG Chloride ABG Glucose Oxyhemoglobin Sodium Potassium Chloride Carbon Dioxide BUN Creatinine Glucose POC Glucose 151 H Lactic Acid Calcium Phosphorus Magnesium AST ALT Lactate Dehydrogenase Total Bilirubin Direct Bilirubin CK-MB (CK-2) C-Reactive Protein NT-Pro-B Natriuret Pep Total Protein Albumin Arterial Blood Glucose Urine WBC (Auto) Urine Creatinine 12/08/19 12/08/19 12/08/19 03:55 05:21 06:01 WBC RBC Hgb Hct MCHC RDW MCV MCH Lymph % (Auto) Hood % (Auto) Hood # Eos # Lymph # (Auto) Hood # (Auto) Eos # (Auto) Seg Neutrophils % Seg Neuts % (Manual) Baso # (Auto) Lymphocytes % (Manual) Monocytes % (Manual) Eosinophils % (Manual) Basophils % (Manual) Seg Neutrophils # Seg Neutrophils # Man Lymphocytes # (Manual) Monocytes # (Manual) Eosinophils # (Manual) Nucleated RBC % Basophils # (Manual) PT INR APTT Heparin Anti-Xa Level 0.20 L ABG pH POC ABG pO2 ABG pO2 ABG HCO3 ABG O2 Saturation ABG Base Excess POC ABG pCO2 ABG Hemoglobin ABG Oxyhemoglobin ABG Sodium ABG Chloride ABG Glucose Oxyhemoglobin Sodium 149 H Potassium Chloride 108.0 H Carbon Dioxide BUN 28 H Creatinine 0.6 L Glucose 144 H POC Glucose 143 H Lactic Acid Calcium Phosphorus Magnesium AST 98 H ALT 145 H Lactate Dehydrogenase Total Bilirubin Direct Bilirubin CK-MB (CK-2) C-Reactive Protein NT-Pro-B Natriuret Pep Total Protein 6.0 L Albumin 2.4 L Arterial Blood Glucose Urine WBC (Auto) Urine Creatinine 12/08/19 12/08/19 12/08/19 12:08 18:11 23:53 WBC RBC Hgb Hct MCHC RDW MCV MCH Lymph % (Auto) Hood % (Auto) Hood # Eos # Lymph # (Auto) Hood # (Auto) Eos # (Auto) Seg Neutrophils % Seg Neuts % (Manual) Baso # (Auto) Lymphocytes % (Manual) Monocytes % (Manual) Eosinophils % (Manual) Basophils % (Manual) Seg Neutrophils # Seg Neutrophils # Man Lymphocytes # (Manual) Monocytes # (Manual) Eosinophils # (Manual) Nucleated RBC % Basophils # (Manual) PT INR APTT Heparin Anti-Xa Level ABG pH POC ABG pO2 ABG pO2 ABG HCO3 ABG O2 Saturation ABG Base Excess POC ABG pCO2 ABG Hemoglobin ABG Oxyhemoglobin ABG Sodium ABG Chloride ABG Glucose Oxyhemoglobin Sodium Potassium Chloride Carbon Dioxide BUN Creatinine Glucose POC Glucose 172 H 122 H 162 H Lactic Acid Calcium Phosphorus Magnesium AST ALT Lactate Dehydrogenase Total Bilirubin Direct Bilirubin CK-MB (CK-2) C-Reactive Protein NT-Pro-B Natriuret Pep Total Protein Albumin Arterial Blood Glucose Urine WBC (Auto) Urine Creatinine 12/09/19 12/09/19 12/09/19 04:03 04:03 05:53 WBC RBC Hgb 9.1 L Hct 28.9 L MCHC RDW MCV MCH Lymph % (Auto) Hood % (Auto) Hood # Eos # Lymph # (Auto) Hood # (Auto) Eos # (Auto) Seg Neutrophils % Seg Neuts % (Manual) Baso # (Auto) Lymphocytes % (Manual) Monocytes % (Manual) Eosinophils % (Manual) Basophils % (Manual) Seg Neutrophils # Seg Neutrophils # Man Lymphocytes # (Manual) Monocytes # (Manual) Eosinophils # (Manual) Nucleated RBC % Basophils # (Manual) PT INR APTT Heparin Anti-Xa Level 0.15 L ABG pH POC ABG pO2 ABG pO2 ABG HCO3 ABG O2 Saturation ABG Base Excess POC ABG pCO2 ABG Hemoglobin ABG Oxyhemoglobin ABG Sodium ABG Chloride ABG Glucose Oxyhemoglobin Sodium Potassium Chloride Carbon Dioxide BUN Creatinine Glucose POC Glucose 124 H Lactic Acid Calcium Phosphorus Magnesium AST ALT Lactate Dehydrogenase Total Bilirubin Direct Bilirubin CK-MB (CK-2) C-Reactive Protein NT-Pro-B Natriuret Pep Total Protein Albumin Arterial Blood Glucose Urine WBC (Auto) Urine Creatinine 12/09/19 12/09/19 12/10/19 09:43 12:41 00:13 WBC RBC Hgb Hct MCHC RDW MCV MCH Lymph % (Auto) Hood % (Auto) Hood # Eos # Lymph # (Auto) Hood # (Auto) Eos # (Auto) Seg Neutrophils % Seg Neuts % (Manual) Baso # (Auto) Lymphocytes % (Manual) Monocytes % (Manual) Eosinophils % (Manual) Basophils % (Manual) Seg Neutrophils # Seg Neutrophils # Man Lymphocytes # (Manual) Monocytes # (Manual) Eosinophils # (Manual) Nucleated RBC % Basophils # (Manual) PT INR APTT Heparin Anti-Xa Level ABG pH POC ABG pO2 ABG pO2 ABG HCO3 ABG O2 Saturation ABG Base Excess POC ABG pCO2 ABG Hemoglobin ABG Oxyhemoglobin ABG Sodium ABG Chloride ABG Glucose Oxyhemoglobin Sodium Potassium Chloride Carbon Dioxide BUN 25 H Creatinine 0.6 L Glucose 131 H POC Glucose 109 H 120 H Lactic Acid Calcium Phosphorus Magnesium AST ALT Lactate Dehydrogenase Total Bilirubin Direct Bilirubin CK-MB (CK-2) C-Reactive Protein NT-Pro-B Natriuret Pep Total Protein Albumin Arterial Blood Glucose Urine WBC (Auto) Urine Creatinine 12/10/19 12/10/19 12/10/19 04:14 04:14 12:00 WBC 13.3 H RBC 3.34 L Hgb 9.6 L Hct 30.4 L MCHC RDW 15.4 H MCV MCH Lymph % (Auto) Hood % (Auto) Hood # Eos # Lymph # (Auto) Hood # (Auto) Eos # (Auto) Seg Neutrophils % Seg Neuts % (Manual) 75.0 H Baso # (Auto) Lymphocytes % (Manual) 13.0 L Monocytes % (Manual) 8.0 H Eosinophils % (Manual) Basophils % (Manual) 2.0 H Seg Neutrophils # Seg Neutrophils # Man 10.0 H Lymphocytes # (Manual) Monocytes # (Manual) 1.1 H Eosinophils # (Manual) Nucleated RBC % Basophils # (Manual) 0.3 H PT INR APTT Heparin Anti-Xa Level ABG pH POC ABG pO2 ABG pO2 ABG HCO3 ABG O2 Saturation ABG Base Excess POC ABG pCO2 ABG Hemoglobin ABG Oxyhemoglobin ABG Sodium ABG Chloride ABG Glucose Oxyhemoglobin Sodium 147 H Potassium Chloride 108.3 H Carbon Dioxide BUN 21 H Creatinine 0.6 L Glucose 104 H POC Glucose 133 H Lactic Acid Calcium Phosphorus Magnesium AST ALT Lactate Dehydrogenase Total Bilirubin Direct Bilirubin CK-MB (CK-2) C-Reactive Protein NT-Pro-B Natriuret Pep Total Protein Albumin Arterial Blood Glucose Urine WBC (Auto) Urine Creatinine 12/10/19 12/10/19 12/11/19 18:44 21:20 00:08 WBC 14.9 H RBC 3.36 L Hgb 9.6 L Hct 30.5 L MCHC RDW 15.4 H MCV MCH Lymph % (Auto) Hood % (Auto) Hood # Eos # Lymph # (Auto) Hood # (Auto) Eos # (Auto) Seg Neutrophils % Seg Neuts % (Manual) Baso # (Auto) Lymphocytes % (Manual) Monocytes % (Manual) Eosinophils % (Manual) Basophils % (Manual) Seg Neutrophils # Seg Neutrophils # Man Lymphocytes # (Manual) Monocytes # (Manual) Eosinophils # (Manual) Nucleated RBC % Basophils # (Manual) PT INR APTT Heparin Anti-Xa Level ABG pH POC ABG pO2 ABG pO2 ABG HCO3 ABG O2 Saturation ABG Base Excess POC ABG pCO2 ABG Hemoglobin ABG Oxyhemoglobin ABG Sodium ABG Chloride ABG Glucose Oxyhemoglobin Sodium Potassium Chloride Carbon Dioxide BUN Creatinine Glucose POC Glucose 119 H 134 H Lactic Acid Calcium Phosphorus Magnesium AST ALT Lactate Dehydrogenase Total Bilirubin Direct Bilirubin CK-MB (CK-2) C-Reactive Protein NT-Pro-B Natriuret Pep Total Protein Albumin Arterial Blood Glucose Urine WBC (Auto) Urine Creatinine 12/11/19 12/11/19 12/11/19 03:54 07:28 08:36 WBC 11.9 H RBC 3.25 L Hgb 9.6 L Hct 29.2 L MCHC RDW 15.7 H MCV MCH Lymph % (Auto) Hood % (Auto) Hood # Eos # Lymph # (Auto) Hood # (Auto) Eos # (Auto) Seg Neutrophils % Seg Neuts % (Manual) Baso # (Auto) Lymphocytes % (Manual) Monocytes % (Manual) Eosinophils % (Manual) Basophils % (Manual) Seg Neutrophils # Seg Neutrophils # Man Lymphocytes # (Manual) Monocytes # (Manual) Eosinophils # (Manual) Nucleated RBC % Basophils # (Manual) PT INR APTT Heparin Anti-Xa Level 0.10 L 0.16 L ABG pH POC ABG pO2 ABG pO2 ABG HCO3 ABG O2 Saturation ABG Base Excess POC ABG pCO2 ABG Hemoglobin ABG Oxyhemoglobin ABG Sodium ABG Chloride ABG Glucose Oxyhemoglobin Sodium Potassium Chloride Carbon Dioxide BUN Creatinine Glucose POC Glucose Lactic Acid Calcium Phosphorus Magnesium AST ALT Lactate Dehydrogenase Total Bilirubin Direct Bilirubin CK-MB (CK-2) C-Reactive Protein NT-Pro-B Natriuret Pep Total Protein Albumin Arterial Blood Glucose Urine WBC (Auto) Urine Creatinine 12/11/19 12/11/19 12/11/19 08:36 11:45 17:15 WBC RBC Hgb Hct MCHC RDW MCV MCH Lymph % (Auto) Hood % (Auto) Hood # Eos # Lymph # (Auto) Hood # (Auto) Eos # (Auto) Seg Neutrophils % Seg Neuts % (Manual) Baso # (Auto) Lymphocytes % (Manual) Monocytes % (Manual) Eosinophils % (Manual) Basophils % (Manual) Seg Neutrophils # Seg Neutrophils # Man Lymphocytes # (Manual) Monocytes # (Manual) Eosinophils # (Manual) Nucleated RBC % Basophils # (Manual) PT INR APTT Heparin Anti-Xa Level ABG pH POC ABG pO2 ABG pO2 ABG HCO3 ABG O2 Saturation ABG Base Excess POC ABG pCO2 ABG Hemoglobin ABG Oxyhemoglobin ABG Sodium ABG Chloride ABG Glucose Oxyhemoglobin Sodium Potassium Chloride Carbon Dioxide BUN Creatinine 0.5 L Glucose 128 H POC Glucose 136 H 109 H Lactic Acid Calcium Phosphorus Magnesium AST ALT Lactate Dehydrogenase Total Bilirubin Direct Bilirubin CK-MB (CK-2) C-Reactive Protein NT-Pro-B Natriuret Pep Total Protein Albumin Arterial Blood Glucose Urine WBC (Auto) Urine Creatinine 12/12/19 12/12/19 12/12/19 00:03 05:53 05:53 WBC RBC Hgb 8.8 L Hct 27.6 L MCHC RDW MCV MCH Lymph % (Auto) Hood % (Auto) Hood # Eos # Lymph # (Auto) Hood # (Auto) Eos # (Auto) Seg Neutrophils % Seg Neuts % (Manual) Baso # (Auto) Lymphocytes % (Manual) Monocytes % (Manual) Eosinophils % (Manual) Basophils % (Manual) Seg Neutrophils # Seg Neutrophils # Man Lymphocytes # (Manual) Monocytes # (Manual) Eosinophils # (Manual) Nucleated RBC % Basophils # (Manual) PT INR APTT Heparin Anti-Xa Level 0.22 L ABG pH POC ABG pO2 ABG pO2 ABG HCO3 ABG O2 Saturation ABG Base Excess POC ABG pCO2 ABG Hemoglobin ABG Oxyhemoglobin ABG Sodium ABG Chloride ABG Glucose Oxyhemoglobin Sodium Potassium Chloride Carbon Dioxide BUN Creatinine Glucose POC Glucose 116 H Lactic Acid Calcium Phosphorus Magnesium AST ALT Lactate Dehydrogenase Total Bilirubin Direct Bilirubin CK-MB (CK-2) C-Reactive Protein NT-Pro-B Natriuret Pep Total Protein Albumin Arterial Blood Glucose Urine WBC (Auto) Urine Creatinine 12/12/19 12/12/19 12/12/19 09:38 12:18 17:44 WBC RBC Hgb Hct MCHC RDW MCV MCH Lymph % (Auto) Hood % (Auto) Hood # Eos # Lymph # (Auto) Hood # (Auto) Eos # (Auto) Seg Neutrophils % Seg Neuts % (Manual) Baso # (Auto) Lymphocytes % (Manual) Monocytes % (Manual) Eosinophils % (Manual) Basophils % (Manual) Seg Neutrophils # Seg Neutrophils # Man Lymphocytes # (Manual) Monocytes # (Manual) Eosinophils # (Manual) Nucleated RBC % Basophils # (Manual) PT INR APTT Heparin Anti-Xa Level ABG pH POC ABG pO2 ABG pO2 ABG HCO3 ABG O2 Saturation ABG Base Excess POC ABG pCO2 ABG Hemoglobin ABG Oxyhemoglobin ABG Sodium ABG Chloride ABG Glucose Oxyhemoglobin Sodium Potassium Chloride Carbon Dioxide BUN Creatinine Glucose POC Glucose 115 H 146 H 146 H Lactic Acid Calcium Phosphorus Magnesium AST ALT Lactate Dehydrogenase Total Bilirubin Direct Bilirubin CK-MB (CK-2) C-Reactive Protein NT-Pro-B Natriuret Pep Total Protein Albumin Arterial Blood Glucose Urine WBC (Auto) Urine Creatinine 12/12/19 12/13/19 12/13/19 23:33 05:32 05:32 WBC 13.1 H RBC 3.27 L Hgb 9.5 L Hct 29.3 L MCHC RDW 15.6 H MCV MCH Lymph % (Auto) Hood % (Auto) Hood # Eos # Lymph # (Auto) Hood # (Auto) Eos # (Auto) Seg Neutrophils % Seg Neuts % (Manual) 74.0 H Baso # (Auto) Lymphocytes % (Manual) 8.0 L Monocytes % (Manual) 9.0 H Eosinophils % (Manual) 5.0 H Basophils % (Manual) Seg Neutrophils # Seg Neutrophils # Man 9.7 H Lymphocytes # (Manual) 1.0 L Monocytes # (Manual) 1.2 H Eosinophils # (Manual) 0.7 H Nucleated RBC % Basophils # (Manual) PT INR APTT Heparin Anti-Xa Level 0.20 L ABG pH POC ABG pO2 ABG pO2 ABG HCO3 ABG O2 Saturation ABG Base Excess POC ABG pCO2 ABG Hemoglobin ABG Oxyhemoglobin ABG Sodium ABG Chloride ABG Glucose Oxyhemoglobin Sodium Potassium Chloride Carbon Dioxide BUN Creatinine Glucose POC Glucose 126 H Lactic Acid Calcium Phosphorus Magnesium AST ALT Lactate Dehydrogenase Total Bilirubin Direct Bilirubin CK-MB (CK-2) C-Reactive Protein NT-Pro-B Natriuret Pep Total Protein Albumin Arterial Blood Glucose Urine WBC (Auto) Urine Creatinine 12/13/19 12/13/19 12/13/19 05:32 05:46 11:57 WBC RBC Hgb Hct MCHC RDW MCV MCH Lymph % (Auto) Hood % (Auto) Hood # Eos # Lymph # (Auto) Hood # (Auto) Eos # (Auto) Seg Neutrophils % Seg Neuts % (Manual) Baso # (Auto) Lymphocytes % (Manual) Monocytes % (Manual) Eosinophils % (Manual) Basophils % (Manual) Seg Neutrophils # Seg Neutrophils # Man Lymphocytes # (Manual) Monocytes # (Manual) Eosinophils # (Manual) Nucleated RBC % Basophils # (Manual) PT INR APTT Heparin Anti-Xa Level ABG pH POC ABG pO2 ABG pO2 ABG HCO3 ABG O2 Saturation ABG Base Excess POC ABG pCO2 ABG Hemoglobin ABG Oxyhemoglobin ABG Sodium ABG Chloride ABG Glucose Oxyhemoglobin Sodium Potassium Chloride Carbon Dioxide 31 H BUN Creatinine 0.6 L Glucose 114 H POC Glucose 118 H 133 H Lactic Acid Calcium Phosphorus Magnesium AST ALT Lactate Dehydrogenase Total Bilirubin Direct Bilirubin CK-MB (CK-2) C-Reactive Protein NT-Pro-B Natriuret Pep Total Protein Albumin Arterial Blood Glucose Urine WBC (Auto) Urine Creatinine 12/13/19 12/13/19 12/14/19 17:44 23:46 05:32 WBC RBC Hgb Hct MCHC RDW MCV MCH Lymph % (Auto) Hood % (Auto) Hood # Eos # Lymph # (Auto) Hood # (Auto) Eos # (Auto) Seg Neutrophils % Seg Neuts % (Manual) Baso # (Auto) Lymphocytes % (Manual) Monocytes % (Manual) Eosinophils % (Manual) Basophils % (Manual) Seg Neutrophils # Seg Neutrophils # Man Lymphocytes # (Manual) Monocytes # (Manual) Eosinophils # (Manual) Nucleated RBC % Basophils # (Manual) PT INR APTT Heparin Anti-Xa Level ABG pH POC ABG pO2 ABG pO2 ABG HCO3 ABG O2 Saturation ABG Base Excess POC ABG pCO2 ABG Hemoglobin ABG Oxyhemoglobin ABG Sodium ABG Chloride ABG Glucose Oxyhemoglobin Sodium Potassium Chloride Carbon Dioxide BUN Creatinine Glucose POC Glucose 161 H 126 H 139 H Lactic Acid Calcium Phosphorus Magnesium AST ALT Lactate Dehydrogenase Total Bilirubin Direct Bilirubin CK-MB (CK-2) C-Reactive Protein NT-Pro-B Natriuret Pep Total Protein Albumin Arterial Blood Glucose Urine WBC (Auto) Urine Creatinine 12/14/19 12/14/19 12/14/19 06:03 06:03 09:37 WBC RBC Hgb 9.6 L Hct 30.4 L MCHC RDW MCV MCH Lymph % (Auto) Hood % (Auto) Hood # Eos # Lymph # (Auto) Hood # (Auto) Eos # (Auto) Seg Neutrophils % Seg Neuts % (Manual) Baso # (Auto) Lymphocytes % (Manual) Monocytes % (Manual) Eosinophils % (Manual) Basophils % (Manual) Seg Neutrophils # Seg Neutrophils # Man Lymphocytes # (Manual) Monocytes # (Manual) Eosinophils # (Manual) Nucleated RBC % Basophils # (Manual) PT INR APTT Heparin Anti-Xa Level 0.24 L ABG pH POC ABG pO2 ABG pO2 ABG HCO3 ABG O2 Saturation ABG Base Excess POC ABG pCO2 ABG Hemoglobin ABG Oxyhemoglobin ABG Sodium ABG Chloride ABG Glucose Oxyhemoglobin Sodium Potassium Chloride Carbon Dioxide BUN Creatinine 0.6 L Glucose 162 H POC Glucose Lactic Acid Calcium Phosphorus Magnesium AST 71 H ALT 118 H Lactate Dehydrogenase Total Bilirubin Direct Bilirubin CK-MB (CK-2) C-Reactive Protein NT-Pro-B Natriuret Pep Total Protein 6.2 L Albumin 2.3 L Arterial Blood Glucose Urine WBC (Auto) Urine Creatinine 12/14/19 12/14/19 12/15/19 12:06 18:18 00:19 WBC RBC Hgb Hct MCHC RDW MCV MCH Lymph % (Auto) Hood % (Auto) Hood # Eos # Lymph # (Auto) Hood # (Auto) Eos # (Auto) Seg Neutrophils % Seg Neuts % (Manual) Baso # (Auto) Lymphocytes % (Manual) Monocytes % (Manual) Eosinophils % (Manual) Basophils % (Manual) Seg Neutrophils # Seg Neutrophils # Man Lymphocytes # (Manual) Monocytes # (Manual) Eosinophils # (Manual) Nucleated RBC % Basophils # (Manual) PT INR APTT Heparin Anti-Xa Level ABG pH POC ABG pO2 ABG pO2 ABG HCO3 ABG O2 Saturation ABG Base Excess POC ABG pCO2 ABG Hemoglobin ABG Oxyhemoglobin ABG Sodium ABG Chloride ABG Glucose Oxyhemoglobin Sodium Potassium Chloride Carbon Dioxide BUN Creatinine Glucose POC Glucose 147 H 166 H 123 H Lactic Acid Calcium Phosphorus Magnesium AST ALT Lactate Dehydrogenase Total Bilirubin Direct Bilirubin CK-MB (CK-2) C-Reactive Protein NT-Pro-B Natriuret Pep Total Protein Albumin Arterial Blood Glucose Urine WBC (Auto) Urine Creatinine 12/15/19 12/15/19 12/15/19 05:28 05:29 05:29 WBC 14.9 H RBC 3.19 L Hgb 9.1 L Hct 28.7 L MCHC RDW 16.0 H MCV MCH Lymph % (Auto) Hood % (Auto) Hood # Eos # Lymph # (Auto) Hood # (Auto) Eos # (Auto) Seg Neutrophils % Seg Neuts % (Manual) Baso # (Auto) Lymphocytes % (Manual) Monocytes % (Manual) Eosinophils % (Manual) Basophils % (Manual) Seg Neutrophils # Seg Neutrophils # Man Lymphocytes # (Manual) Monocytes # (Manual) Eosinophils # (Manual) Nucleated RBC % Basophils # (Manual) PT INR APTT Heparin Anti-Xa Level 0.19 L ABG pH POC ABG pO2 ABG pO2 ABG HCO3 ABG O2 Saturation ABG Base Excess POC ABG pCO2 ABG Hemoglobin ABG Oxyhemoglobin ABG Sodium ABG Chloride ABG Glucose Oxyhemoglobin Sodium Potassium Chloride Carbon Dioxide BUN Creatinine 0.6 L Glucose 110 H POC Glucose Lactic Acid Calcium Phosphorus Magnesium AST ALT Lactate Dehydrogenase Total Bilirubin Direct Bilirubin CK-MB (CK-2) C-Reactive Protein NT-Pro-B Natriuret Pep Total Protein Albumin Arterial Blood Glucose Urine WBC (Auto) Urine Creatinine 12/15/19 12/15/19 12/15/19 05:53 11:50 17:26 WBC RBC Hgb Hct MCHC RDW MCV MCH Lymph % (Auto) Hood % (Auto) Hood # Eos # Lymph # (Auto) Hood # (Auto) Eos # (Auto) Seg Neutrophils % Seg Neuts % (Manual) Baso # (Auto) Lymphocytes % (Manual) Monocytes % (Manual) Eosinophils % (Manual) Basophils % (Manual) Seg Neutrophils # Seg Neutrophils # Man Lymphocytes # (Manual) Monocytes # (Manual) Eosinophils # (Manual) Nucleated RBC % Basophils # (Manual) PT INR APTT Heparin Anti-Xa Level ABG pH POC ABG pO2 ABG pO2 ABG HCO3 ABG O2 Saturation ABG Base Excess POC ABG pCO2 ABG Hemoglobin ABG Oxyhemoglobin ABG Sodium ABG Chloride ABG Glucose Oxyhemoglobin Sodium Potassium Chloride Carbon Dioxide BUN Creatinine Glucose POC Glucose 119 H 132 H 128 H Lactic Acid Calcium Phosphorus Magnesium AST ALT Lactate Dehydrogenase Total Bilirubin Direct Bilirubin CK-MB (CK-2) C-Reactive Protein NT-Pro-B Natriuret Pep Total Protein Albumin Arterial Blood Glucose Urine WBC (Auto) Urine Creatinine 12/15/19 12/16/19 12/16/19 23:11 05:30 05:46 WBC RBC Hgb 8.8 L Hct 27.9 L MCHC RDW MCV MCH Lymph % (Auto) Hood % (Auto) Hood # Eos # Lymph # (Auto) Hood # (Auto) Eos # (Auto) Seg Neutrophils % Seg Neuts % (Manual) Baso # (Auto) Lymphocytes % (Manual) Monocytes % (Manual) Eosinophils % (Manual) Basophils % (Manual) Seg Neutrophils # Seg Neutrophils # Man Lymphocytes # (Manual) Monocytes # (Manual) Eosinophils # (Manual) Nucleated RBC % Basophils # (Manual) PT INR APTT Heparin Anti-Xa Level ABG pH POC ABG pO2 ABG pO2 ABG HCO3 ABG O2 Saturation ABG Base Excess POC ABG pCO2 ABG Hemoglobin ABG Oxyhemoglobin ABG Sodium ABG Chloride ABG Glucose Oxyhemoglobin Sodium Potassium Chloride Carbon Dioxide BUN Creatinine Glucose POC Glucose 150 H 134 H Lactic Acid Calcium Phosphorus Magnesium AST ALT Lactate Dehydrogenase Total Bilirubin Direct Bilirubin CK-MB (CK-2) C-Reactive Protein NT-Pro-B Natriuret Pep Total Protein Albumin Arterial Blood Glucose Urine WBC (Auto) Urine Creatinine 12/16/19 12/16/19 12/16/19 05:46 05:46 11:44 WBC RBC Hgb Hct MCHC RDW MCV MCH Lymph % (Auto) Hood % (Auto) Hood # Eos # Lymph # (Auto) Hood # (Auto) Eos # (Auto) Seg Neutrophils % Seg Neuts % (Manual) Baso # (Auto) Lymphocytes % (Manual) Monocytes % (Manual) Eosinophils % (Manual) Basophils % (Manual) Seg Neutrophils # Seg Neutrophils # Man Lymphocytes # (Manual) Monocytes # (Manual) Eosinophils # (Manual) Nucleated RBC % Basophils # (Manual) PT INR APTT Heparin Anti-Xa Level 0.20 L ABG pH POC ABG pO2 ABG pO2 ABG HCO3 ABG O2 Saturation ABG Base Excess POC ABG pCO2 ABG Hemoglobin ABG Oxyhemoglobin ABG Sodium ABG Chloride ABG Glucose Oxyhemoglobin Sodium Potassium Chloride Carbon Dioxide 31 H BUN Creatinine 0.5 L Glucose 147 H POC Glucose 164 H Lactic Acid Calcium Phosphorus Magnesium AST ALT Lactate Dehydrogenase Total Bilirubin Direct Bilirubin CK-MB (CK-2) C-Reactive Protein NT-Pro-B Natriuret Pep Total Protein Albumin Arterial Blood Glucose Urine WBC (Auto) Urine Creatinine 12/16/19 12/16/19 12/17/19 17:17 23:49 05:30 WBC 13.9 H RBC 3.27 L Hgb 9.4 L Hct 29.2 L MCHC RDW 16.0 H MCV MCH Lymph % (Auto) Hood % (Auto) 8.8 H Hood # Eos # Lymph # (Auto) Hood # (Auto) 1.2 H Eos # (Auto) 0.5 H Seg Neutrophils % 70.5 H Seg Neuts % (Manual) Baso # (Auto) 0.2 H Lymphocytes % (Manual) Monocytes % (Manual) Eosinophils % (Manual) Basophils % (Manual) Seg Neutrophils # 9.8 H Seg Neutrophils # Man Lymphocytes # (Manual) Monocytes # (Manual) Eosinophils # (Manual) Nucleated RBC % Basophils # (Manual) PT INR APTT Heparin Anti-Xa Level ABG pH POC ABG pO2 ABG pO2 ABG HCO3 ABG O2 Saturation ABG Base Excess POC ABG pCO2 ABG Hemoglobin ABG Oxyhemoglobin ABG Sodium ABG Chloride ABG Glucose Oxyhemoglobin Sodium Potassium Chloride Carbon Dioxide BUN Creatinine Glucose POC Glucose 162 H 144 H Lactic Acid Calcium Phosphorus Magnesium AST ALT Lactate Dehydrogenase Total Bilirubin Direct Bilirubin CK-MB (CK-2) C-Reactive Protein NT-Pro-B Natriuret Pep Total Protein Albumin Arterial Blood Glucose Urine WBC (Auto) Urine Creatinine 12/17/19 12/17/19 12/17/19 05:30 06:06 11:50 WBC RBC Hgb Hct MCHC RDW MCV MCH Lymph % (Auto) Hood % (Auto) Hood # Eos # Lymph # (Auto) Hood # (Auto) Eos # (Auto) Seg Neutrophils % Seg Neuts % (Manual) Baso # (Auto) Lymphocytes % (Manual) Monocytes % (Manual) Eosinophils % (Manual) Basophils % (Manual) Seg Neutrophils # Seg Neutrophils # Man Lymphocytes # (Manual) Monocytes # (Manual) Eosinophils # (Manual) Nucleated RBC % Basophils # (Manual) PT INR APTT Heparin Anti-Xa Level ABG pH POC ABG pO2 ABG pO2 ABG HCO3 ABG O2 Saturation ABG Base Excess POC ABG pCO2 ABG Hemoglobin ABG Oxyhemoglobin ABG Sodium ABG Chloride ABG Glucose Oxyhemoglobin Sodium Potassium Chloride 97.4 L Carbon Dioxide 32 H BUN Creatinine 0.5 L Glucose 135 H POC Glucose 151 H 140 H Lactic Acid Calcium Phosphorus Magnesium AST ALT Lactate Dehydrogenase Total Bilirubin Direct Bilirubin CK-MB (CK-2) C-Reactive Protein NT-Pro-B Natriuret Pep Total Protein Albumin Arterial Blood Glucose Urine WBC (Auto) Urine Creatinine 12/17/19 12/17/19 12/18/19 17:50 23:46 05:17 WBC RBC Hgb 8.8 L Hct 28.0 L MCHC RDW MCV MCH Lymph % (Auto) Hood % (Auto) Hood # Eos # Lymph # (Auto) Hood # (Auto) Eos # (Auto) Seg Neutrophils % Seg Neuts % (Manual) Baso # (Auto) Lymphocytes % (Manual) Monocytes % (Manual) Eosinophils % (Manual) Basophils % (Manual) Seg Neutrophils # Seg Neutrophils # Man Lymphocytes # (Manual) Monocytes # (Manual) Eosinophils # (Manual) Nucleated RBC % Basophils # (Manual) PT INR APTT Heparin Anti-Xa Level ABG pH POC ABG pO2 ABG pO2 ABG HCO3 ABG O2 Saturation ABG Base Excess POC ABG pCO2 ABG Hemoglobin ABG Oxyhemoglobin ABG Sodium ABG Chloride ABG Glucose Oxyhemoglobin Sodium Potassium Chloride Carbon Dioxide BUN Creatinine Glucose POC Glucose 158 H 150 H Lactic Acid Calcium Phosphorus Magnesium AST ALT Lactate Dehydrogenase Total Bilirubin Direct Bilirubin CK-MB (CK-2) C-Reactive Protein NT-Pro-B Natriuret Pep Total Protein Albumin Arterial Blood Glucose Urine WBC (Auto) Urine Creatinine 12/18/19 12/18/19 12/18/19 05:17 05:49 11:12 WBC RBC Hgb Hct MCHC RDW MCV MCH Lymph % (Auto) Hood % (Auto) Hood # Eos # Lymph # (Auto) Hood # (Auto) Eos # (Auto) Seg Neutrophils % Seg Neuts % (Manual) Baso # (Auto) Lymphocytes % (Manual) Monocytes % (Manual) Eosinophils % (Manual) Basophils % (Manual) Seg Neutrophils # Seg Neutrophils # Man Lymphocytes # (Manual) Monocytes # (Manual) Eosinophils # (Manual) Nucleated RBC % Basophils # (Manual) PT INR APTT Heparin Anti-Xa Level 0.16 L ABG pH POC ABG pO2 ABG pO2 ABG HCO3 ABG O2 Saturation ABG Base Excess POC ABG pCO2 ABG Hemoglobin ABG Oxyhemoglobin ABG Sodium ABG Chloride ABG Glucose Oxyhemoglobin Sodium Potassium Chloride Carbon Dioxide BUN Creatinine Glucose POC Glucose 127 H 191 H Lactic Acid Calcium Phosphorus Magnesium AST ALT Lactate Dehydrogenase Total Bilirubin Direct Bilirubin CK-MB (CK-2) C-Reactive Protein NT-Pro-B Natriuret Pep Total Protein Albumin Arterial Blood Glucose Urine WBC (Auto) Urine Creatinine 12/18/19 12/18/19 12/19/19 17:03 20:16 00:08 WBC RBC Hgb Hct MCHC RDW MCV MCH Lymph % (Auto) Hood % (Auto) Hood # Eos # Lymph # (Auto) Hood # (Auto) Eos # (Auto) Seg Neutrophils % Seg Neuts % (Manual) Baso # (Auto) Lymphocytes % (Manual) Monocytes % (Manual) Eosinophils % (Manual) Basophils % (Manual) Seg Neutrophils # Seg Neutrophils # Man Lymphocytes # (Manual) Monocytes # (Manual) Eosinophils # (Manual) Nucleated RBC % Basophils # (Manual) PT INR APTT Heparin Anti-Xa Level ABG pH POC ABG pO2 ABG pO2 ABG HCO3 ABG O2 Saturation ABG Base Excess POC ABG pCO2 ABG Hemoglobin ABG Oxyhemoglobin ABG Sodium ABG Chloride ABG Glucose Oxyhemoglobin Sodium Potassium Chloride Carbon Dioxide BUN Creatinine Glucose POC Glucose 133 H 128 H 129 H Lactic Acid Calcium Phosphorus Magnesium AST ALT Lactate Dehydrogenase Total Bilirubin Direct Bilirubin CK-MB (CK-2) C-Reactive Protein NT-Pro-B Natriuret Pep Total Protein Albumin Arterial Blood Glucose Urine WBC (Auto) Urine Creatinine 12/19/19 12/19/19 12/19/19 04:45 04:45 05:35 WBC RBC Hgb Hct MCHC RDW MCV MCH Lymph % (Auto) Hood % (Auto) Hood # Eos # Lymph # (Auto) Hood # (Auto) Eos # (Auto) Seg Neutrophils % Seg Neuts % (Manual) Baso # (Auto) Lymphocytes % (Manual) Monocytes % (Manual) Eosinophils % (Manual) Basophils % (Manual) Seg Neutrophils # Seg Neutrophils # Man Lymphocytes # (Manual) Monocytes # (Manual) Eosinophils # (Manual) Nucleated RBC % Basophils # (Manual) PT INR APTT Heparin Anti-Xa Level 0.17 L ABG pH POC ABG pO2 ABG pO2 ABG HCO3 ABG O2 Saturation ABG Base Excess POC ABG pCO2 ABG Hemoglobin ABG Oxyhemoglobin ABG Sodium ABG Chloride ABG Glucose Oxyhemoglobin Sodium Potassium Chloride Carbon Dioxide BUN Creatinine Glucose POC Glucose 120 H Lactic Acid Calcium Phosphorus Magnesium AST ALT Lactate Dehydrogenase 228 H Total Bilirubin Direct Bilirubin CK-MB (CK-2) C-Reactive Protein NT-Pro-B Natriuret Pep Total Protein Albumin Arterial Blood Glucose Urine WBC (Auto) Urine Creatinine 12/19/19 12/19/19 12/19/19 09:20 11:32 11:32 WBC 14.6 H RBC 3.08 L Hgb 9.0 L Hct 26.8 L MCHC RDW 15.9 H MCV MCH Lymph % (Auto) Hood % (Auto) Hood # Eos # Lymph # (Auto) Hood # (Auto) Eos # (Auto) Seg Neutrophils % Seg Neuts % (Manual) 82.0 H Baso # (Auto) Lymphocytes % (Manual) 10.0 L Monocytes % (Manual) Eosinophils % (Manual) Basophils % (Manual) Seg Neutrophils # Seg Neutrophils # Man 12.0 H Lymphocytes # (Manual) Monocytes # (Manual) 0.9 H Eosinophils # (Manual) Nucleated RBC % 1.0 H Basophils # (Manual) PT INR APTT Heparin Anti-Xa Level ABG pH 7.451 H POC ABG pO2 ABG pO2 62.6 L ABG HCO3 33.2 H ABG O2 Saturation 93.8 L ABG Base Excess 8.3 H POC ABG pCO2 ABG Hemoglobin 8.3 L ABG Oxyhemoglobin ABG Sodium ABG Chloride ABG Glucose Oxyhemoglobin 91.9 L Sodium Potassium Chloride 95.0 L Carbon Dioxide 33 H BUN 22 H Creatinine 0.6 L Glucose 150 H POC Glucose Lactic Acid Calcium Phosphorus Magnesium AST ALT Lactate Dehydrogenase Total Bilirubin Direct Bilirubin CK-MB (CK-2) C-Reactive Protein NT-Pro-B Natriuret Pep Total Protein 6.2 L Albumin 2.4 L Arterial Blood Glucose Urine WBC (Auto) Urine Creatinine 12/19/19 12/19/19 12/20/19 11:56 18:17 00:09 WBC RBC Hgb Hct MCHC RDW MCV MCH Lymph % (Auto) Hood % (Auto) Hood # Eos # Lymph # (Auto) Hood # (Auto) Eos # (Auto) Seg Neutrophils % Seg Neuts % (Manual) Baso # (Auto) Lymphocytes % (Manual) Monocytes % (Manual) Eosinophils % (Manual) Basophils % (Manual) Seg Neutrophils # Seg Neutrophils # Man Lymphocytes # (Manual) Monocytes # (Manual) Eosinophils # (Manual) Nucleated RBC % Basophils # (Manual) PT INR APTT Heparin Anti-Xa Level ABG pH POC ABG pO2 ABG pO2 ABG HCO3 ABG O2 Saturation ABG Base Excess POC ABG pCO2 ABG Hemoglobin ABG Oxyhemoglobin ABG Sodium ABG Chloride ABG Glucose Oxyhemoglobin Sodium Potassium Chloride Carbon Dioxide BUN Creatinine Glucose POC Glucose 156 H 156 H 155 H Lactic Acid Calcium Phosphorus Magnesium AST ALT Lactate Dehydrogenase Total Bilirubin Direct Bilirubin CK-MB (CK-2) C-Reactive Protein NT-Pro-B Natriuret Pep Total Protein Albumin Arterial Blood Glucose Urine WBC (Auto) Urine Creatinine 09/27/20 09/27/20 09/27/20 05:26 06:02 18:17 WBC RBC Hgb Hct MCHC RDW MCV MCH Lymph % (Auto) Hood % (Auto) Hood # Eos # Lymph # (Auto) Hood # (Auto) Eos # (Auto) Seg Neutrophils % Seg Neuts % (Manual) Baso # (Auto) Lymphocytes % (Manual) Monocytes % (Manual) Eosinophils % (Manual) Basophils % (Manual) Seg Neutrophils # Seg Neutrophils # Man Lymphocytes # (Manual) Monocytes # (Manual) Eosinophils # (Manual) Nucleated RBC % Basophils # (Manual) PT INR APTT Heparin Anti-Xa Level 0.19 L ABG pH POC ABG pO2 ABG pO2 ABG HCO3 ABG O2 Saturation ABG Base Excess POC ABG pCO2 ABG Hemoglobin ABG Oxyhemoglobin ABG Sodium ABG Chloride ABG Glucose Oxyhemoglobin Sodium Potassium Chloride Carbon Dioxide BUN Creatinine Glucose POC Glucose 137 H 128 H Lactic Acid Calcium Phosphorus Magnesium AST ALT Lactate Dehydrogenase Total Bilirubin Direct Bilirubin CK-MB (CK-2) C-Reactive Protein NT-Pro-B Natriuret Pep Total Protein Albumin Arterial Blood Glucose Urine WBC (Auto) Urine Creatinine 12/20/19 12/21/19 12/21/19 23:34 05:31 05:31 WBC 12.7 H RBC 3.09 L Hgb 8.9 L Hct 27.4 L MCHC RDW 15.8 H MCV MCH Lymph % (Auto) 12.1 L Hood % (Auto) 7.8 H Hood # Eos # Lymph # (Auto) Hood # (Auto) 1.0 H Eos # (Auto) Seg Neutrophils % 77.1 H Seg Neuts % (Manual) Baso # (Auto) Lymphocytes % (Manual) Monocytes % (Manual) Eosinophils % (Manual) Basophils % (Manual) Seg Neutrophils # 9.8 H Seg Neutrophils # Man Lymphocytes # (Manual) Monocytes # (Manual) Eosinophils # (Manual) Nucleated RBC % Basophils # (Manual) PT INR APTT Heparin Anti-Xa Level ABG pH POC ABG pO2 ABG pO2 ABG HCO3 ABG O2 Saturation ABG Base Excess POC ABG pCO2 ABG Hemoglobin ABG Oxyhemoglobin ABG Sodium ABG Chloride ABG Glucose Oxyhemoglobin Sodium Potassium Chloride 96.9 L Carbon Dioxide 37 H BUN 27 H Creatinine 0.7 L Glucose 140 H POC Glucose 145 H Lactic Acid Calcium Phosphorus Magnesium AST ALT Lactate Dehydrogenase Total Bilirubin Direct Bilirubin CK-MB (CK-2) C-Reactive Protein NT-Pro-B Natriuret Pep Total Protein Albumin Arterial Blood Glucose Urine WBC (Auto) Urine Creatinine 12/21/19 12/21/19 12/21/19 05:38 10:13 11:51 WBC RBC Hgb Hct MCHC RDW MCV MCH Lymph % (Auto) Hood % (Auto) Hood # Eos # Lymph # (Auto) Hood # (Auto) Eos # (Auto) Seg Neutrophils % Seg Neuts % (Manual) Baso # (Auto) Lymphocytes % (Manual) Monocytes % (Manual) Eosinophils % (Manual) Basophils % (Manual) Seg Neutrophils # Seg Neutrophils # Man Lymphocytes # (Manual) Monocytes # (Manual) Eosinophils # (Manual) Nucleated RBC % Basophils # (Manual) PT INR APTT 23.9 L Heparin Anti-Xa Level < 0.10 L ABG pH POC ABG pO2 ABG pO2 ABG HCO3 ABG O2 Saturation ABG Base Excess POC ABG pCO2 ABG Hemoglobin ABG Oxyhemoglobin ABG Sodium ABG Chloride ABG Glucose Oxyhemoglobin Sodium Potassium Chloride Carbon Dioxide BUN Creatinine Glucose POC Glucose 151 H 145 H Lactic Acid Calcium Phosphorus Magnesium AST ALT Lactate Dehydrogenase Total Bilirubin Direct Bilirubin CK-MB (CK-2) C-Reactive Protein NT-Pro-B Natriuret Pep Total Protein Albumin Arterial Blood Glucose Urine WBC (Auto) Urine Creatinine 12/21/19 12/22/19 12/22/19 17:16 00:01 01:33 WBC RBC Hgb Hct MCHC RDW MCV MCH Lymph % (Auto) Hood % (Auto) Hood # Eos # Lymph # (Auto) Hood # (Auto) Eos # (Auto) Seg Neutrophils % Seg Neuts % (Manual) Baso # (Auto) Lymphocytes % (Manual) Monocytes % (Manual) Eosinophils % (Manual) Basophils % (Manual) Seg Neutrophils # Seg Neutrophils # Man Lymphocytes # (Manual) Monocytes # (Manual) Eosinophils # (Manual) Nucleated RBC % Basophils # (Manual) PT INR APTT Heparin Anti-Xa Level 0.10 L ABG pH POC ABG pO2 ABG pO2 ABG HCO3 ABG O2 Saturation ABG Base Excess POC ABG pCO2 ABG Hemoglobin ABG Oxyhemoglobin ABG Sodium ABG Chloride ABG Glucose Oxyhemoglobin Sodium Potassium Chloride Carbon Dioxide BUN Creatinine Glucose POC Glucose 167 H 179 H Lactic Acid Calcium Phosphorus Magnesium AST ALT Lactate Dehydrogenase Total Bilirubin Direct Bilirubin CK-MB (CK-2) C-Reactive Protein NT-Pro-B Natriuret Pep Total Protein Albumin Arterial Blood Glucose Urine WBC (Auto) Urine Creatinine 12/22/19 12/22/19 12/22/19 03:22 05:10 05:10 WBC 13.8 H RBC 3.20 L Hgb 8.9 L Hct 28.1 L MCHC RDW 15.9 H MCV MCH Lymph % (Auto) Hood % (Auto) Hood # Eos # Lymph # (Auto) Hood # (Auto) Eos # (Auto) Seg Neutrophils % Seg Neuts % (Manual) Baso # (Auto) Lymphocytes % (Manual) Monocytes % (Manual) Eosinophils % (Manual) Basophils % (Manual) Seg Neutrophils # Seg Neutrophils # Man Lymphocytes # (Manual) Monocytes # (Manual) Eosinophils # (Manual) Nucleated RBC % Basophils # (Manual) PT INR APTT Heparin Anti-Xa Level ABG pH POC ABG pO2 52.3 L ABG pO2 ABG HCO3 ABG O2 Saturation ABG Base Excess POC ABG pCO2 52.9 H ABG Hemoglobin 10.7 L ABG Oxyhemoglobin 84 L ABG Sodium ABG Chloride ABG Glucose Oxyhemoglobin Sodium Potassium Chloride 96.6 L Carbon Dioxide BUN 25 H Creatinine 0.7 L Glucose 129 H POC Glucose Lactic Acid Calcium Phosphorus Magnesium AST ALT Lactate Dehydrogenase Total Bilirubin Direct Bilirubin CK-MB (CK-2) C-Reactive Protein NT-Pro-B Natriuret Pep Total Protein Albumin Arterial Blood Glucose Urine WBC (Auto) Urine Creatinine 12/22/19 12/22/19 12/22/19 05:18 12:32 12:43 WBC RBC Hgb Hct MCHC RDW MCV MCH Lymph % (Auto) Hood % (Auto) Hood # Eos # Lymph # (Auto) Hood # (Auto) Eos # (Auto) Seg Neutrophils % Seg Neuts % (Manual) Baso # (Auto) Lymphocytes % (Manual) Monocytes % (Manual) Eosinophils % (Manual) Basophils % (Manual) Seg Neutrophils # Seg Neutrophils # Man Lymphocytes # (Manual) Monocytes # (Manual) Eosinophils # (Manual) Nucleated RBC % Basophils # (Manual) PT INR APTT Heparin Anti-Xa Level 0.18 L ABG pH POC ABG pO2 ABG pO2 ABG HCO3 ABG O2 Saturation ABG Base Excess POC ABG pCO2 ABG Hemoglobin ABG Oxyhemoglobin ABG Sodium ABG Chloride ABG Glucose Oxyhemoglobin Sodium Potassium Chloride Carbon Dioxide BUN Creatinine Glucose POC Glucose 131 H 208 H Lactic Acid Calcium Phosphorus Magnesium AST ALT Lactate Dehydrogenase Total Bilirubin Direct Bilirubin CK-MB (CK-2) C-Reactive Protein NT-Pro-B Natriuret Pep Total Protein Albumin Arterial Blood Glucose Urine WBC (Auto) Urine Creatinine 12/22/19 12/22/19 12/23/19 17:44 23:20 03:51 WBC 15.2 H RBC 3.43 L Hgb 9.6 L Hct 30.3 L MCHC RDW 15.9 H MCV MCH Lymph % (Auto) Hood % (Auto) Hood # Eos # Lymph # (Auto) Hood # (Auto) Eos # (Auto) Seg Neutrophils % Seg Neuts % (Manual) Baso # (Auto) Lymphocytes % (Manual) Monocytes % (Manual) Eosinophils % (Manual) Basophils % (Manual) Seg Neutrophils # Seg Neutrophils # Man Lymphocytes # (Manual) Monocytes # (Manual) Eosinophils # (Manual) Nucleated RBC % Basophils # (Manual) PT INR APTT Heparin Anti-Xa Level ABG pH POC ABG pO2 ABG pO2 ABG HCO3 ABG O2 Saturation ABG Base Excess POC ABG pCO2 ABG Hemoglobin ABG Oxyhemoglobin ABG Sodium ABG Chloride ABG Glucose Oxyhemoglobin Sodium Potassium Chloride Carbon Dioxide BUN Creatinine Glucose POC Glucose 209 H 119 H Lactic Acid Calcium Phosphorus Magnesium AST ALT Lactate Dehydrogenase Total Bilirubin Direct Bilirubin CK-MB (CK-2) C-Reactive Protein NT-Pro-B Natriuret Pep Total Protein Albumin Arterial Blood Glucose Urine WBC (Auto) Urine Creatinine 12/23/19 12/23/19 12/23/19 03:51 05:31 12:09 WBC RBC Hgb Hct MCHC RDW MCV MCH Lymph % (Auto) Hood % (Auto) Hood # Eos # Lymph # (Auto) Hood # (Auto) Eos # (Auto) Seg Neutrophils % Seg Neuts % (Manual) Baso # (Auto) Lymphocytes % (Manual) Monocytes % (Manual) Eosinophils % (Manual) Basophils % (Manual) Seg Neutrophils # Seg Neutrophils # Man Lymphocytes # (Manual) Monocytes # (Manual) Eosinophils # (Manual) Nucleated RBC % Basophils # (Manual) PT INR APTT Heparin Anti-Xa Level ABG pH POC ABG pO2 ABG pO2 ABG HCO3 ABG O2 Saturation ABG Base Excess POC ABG pCO2 ABG Hemoglobin ABG Oxyhemoglobin ABG Sodium ABG Chloride ABG Glucose Oxyhemoglobin Sodium Potassium Chloride 97.2 L Carbon Dioxide 31 H BUN 23 H Creatinine 0.6 L Glucose 153 H POC Glucose 149 H 144 H Lactic Acid Calcium Phosphorus Magnesium AST ALT Lactate Dehydrogenase Total Bilirubin Direct Bilirubin CK-MB (CK-2) C-Reactive Protein NT-Pro-B Natriuret Pep Total Protein Albumin Arterial Blood Glucose Urine WBC (Auto) Urine Creatinine 12/23/19 12/23/19 12/23/19 15:30 17:49 23:31 WBC RBC Hgb Hct MCHC RDW MCV MCH Lymph % (Auto) Hood % (Auto) Hood # Eos # Lymph # (Auto) Hood # (Auto) Eos # (Auto) Seg Neutrophils % Seg Neuts % (Manual) Baso # (Auto) Lymphocytes % (Manual) Monocytes % (Manual) Eosinophils % (Manual) Basophils % (Manual) Seg Neutrophils # Seg Neutrophils # Man Lymphocytes # (Manual) Monocytes # (Manual) Eosinophils # (Manual) Nucleated RBC % Basophils # (Manual) PT INR APTT Heparin Anti-Xa Level 0.21 L ABG pH POC ABG pO2 ABG pO2 ABG HCO3 ABG O2 Saturation ABG Base Excess POC ABG pCO2 ABG Hemoglobin ABG Oxyhemoglobin ABG Sodium ABG Chloride ABG Glucose Oxyhemoglobin Sodium Potassium Chloride Carbon Dioxide BUN Creatinine Glucose POC Glucose 192 H 151 H Lactic Acid Calcium Phosphorus Magnesium AST ALT Lactate Dehydrogenase Total Bilirubin Direct Bilirubin CK-MB (CK-2) C-Reactive Protein NT-Pro-B Natriuret Pep Total Protein Albumin Arterial Blood Glucose Urine WBC (Auto) Urine Creatinine 12/24/19 12/24/19 12/24/19 05:34 12:13 16:50 WBC RBC Hgb Hct MCHC RDW MCV MCH Lymph % (Auto) Hood % (Auto) Hood # Eos # Lymph # (Auto) Hood # (Auto) Eos # (Auto) Seg Neutrophils % Seg Neuts % (Manual) Baso # (Auto) Lymphocytes % (Manual) Monocytes % (Manual) Eosinophils % (Manual) Basophils % (Manual) Seg Neutrophils # Seg Neutrophils # Man Lymphocytes # (Manual) Monocytes # (Manual) Eosinophils # (Manual) Nucleated RBC % Basophils # (Manual) PT INR APTT Heparin Anti-Xa Level 0.16 L ABG pH POC ABG pO2 ABG pO2 ABG HCO3 ABG O2 Saturation ABG Base Excess POC ABG pCO2 ABG Hemoglobin ABG Oxyhemoglobin ABG Sodium ABG Chloride ABG Glucose Oxyhemoglobin Sodium Potassium Chloride Carbon Dioxide BUN Creatinine Glucose POC Glucose 145 H 124 H Lactic Acid Calcium Phosphorus Magnesium AST ALT Lactate Dehydrogenase Total Bilirubin Direct Bilirubin CK-MB (CK-2) C-Reactive Protein NT-Pro-B Natriuret Pep Total Protein Albumin Arterial Blood Glucose Urine WBC (Auto) Urine Creatinine 12/24/19 12/25/19 12/25/19 17:53 00:14 04:18 WBC 12.9 H RBC 3.30 L Hgb 9.1 L Hct 28.8 L MCHC RDW 16.4 H MCV MCH Lymph % (Auto) Hood % (Auto) 7.8 H Hood # Eos # Lymph # (Auto) Hood # (Auto) 1.0 H Eos # (Auto) Seg Neutrophils % 75.5 H Seg Neuts % (Manual) Baso # (Auto) Lymphocytes % (Manual) Monocytes % (Manual) Eosinophils % (Manual) Basophils % (Manual) Seg Neutrophils # 9.7 H Seg Neutrophils # Man Lymphocytes # (Manual) Monocytes # (Manual) Eosinophils # (Manual) Nucleated RBC % Basophils # (Manual) PT INR APTT Heparin Anti-Xa Level ABG pH POC ABG pO2 ABG pO2 ABG HCO3 ABG O2 Saturation ABG Base Excess POC ABG pCO2 ABG Hemoglobin ABG Oxyhemoglobin ABG Sodium ABG Chloride ABG Glucose Oxyhemoglobin Sodium Potassium Chloride Carbon Dioxide BUN Creatinine Glucose POC Glucose 164 H 148 H Lactic Acid Calcium Phosphorus Magnesium AST ALT Lactate Dehydrogenase Total Bilirubin Direct Bilirubin CK-MB (CK-2) C-Reactive Protein NT-Pro-B Natriuret Pep Total Protein Albumin Arterial Blood Glucose Urine WBC (Auto) Urine Creatinine 12/25/19 12/25/19 12/25/19 04:18 05:38 11:44 WBC RBC Hgb Hct MCHC RDW MCV MCH Lymph % (Auto) Hood % (Auto) Hood # Eos # Lymph # (Auto) Hood # (Auto) Eos # (Auto) Seg Neutrophils % Seg Neuts % (Manual) Baso # (Auto) Lymphocytes % (Manual) Monocytes % (Manual) Eosinophils % (Manual) Basophils % (Manual) Seg Neutrophils # Seg Neutrophils # Man Lymphocytes # (Manual) Monocytes # (Manual) Eosinophils # (Manual) Nucleated RBC % Basophils # (Manual) PT INR APTT Heparin Anti-Xa Level ABG pH POC ABG pO2 ABG pO2 ABG HCO3 ABG O2 Saturation ABG Base Excess POC ABG pCO2 ABG Hemoglobin ABG Oxyhemoglobin ABG Sodium ABG Chloride ABG Glucose Oxyhemoglobin Sodium Potassium Chloride Carbon Dioxide 33 H BUN 27 H Creatinine 0.6 L Glucose 132 H POC Glucose 152 H 166 H Lactic Acid Calcium Phosphorus Magnesium AST ALT Lactate Dehydrogenase Total Bilirubin Direct Bilirubin CK-MB (CK-2) C-Reactive Protein NT-Pro-B Natriuret Pep Total Protein Albumin Arterial Blood Glucose Urine WBC (Auto) Urine Creatinine 12/25/19 12/26/19 12/26/19 18:29 00:17 00:18 WBC RBC Hgb Hct MCHC RDW MCV MCH Lymph % (Auto) Hood % (Auto) Hood # Eos # Lymph # (Auto) Hood # (Auto) Eos # (Auto) Seg Neutrophils % Seg Neuts % (Manual) Baso # (Auto) Lymphocytes % (Manual) Monocytes % (Manual) Eosinophils % (Manual) Basophils % (Manual) Seg Neutrophils # Seg Neutrophils # Man Lymphocytes # (Manual) Monocytes # (Manual) Eosinophils # (Manual) Nucleated RBC % Basophils # (Manual) PT INR APTT Heparin Anti-Xa Level ABG pH POC ABG pO2 ABG pO2 ABG HCO3 ABG O2 Saturation ABG Base Excess POC ABG pCO2 ABG Hemoglobin ABG Oxyhemoglobin ABG Sodium ABG Chloride ABG Glucose Oxyhemoglobin Sodium Potassium Chloride 97.8 L Carbon Dioxide BUN 25 H Creatinine 0.6 L Glucose 140 H POC Glucose 194 H 151 H Lactic Acid Calcium Phosphorus Magnesium AST ALT Lactate Dehydrogenase Total Bilirubin Direct Bilirubin CK-MB (CK-2) C-Reactive Protein NT-Pro-B Natriuret Pep Total Protein Albumin Arterial Blood Glucose Urine WBC (Auto) Urine Creatinine 12/26/19 12/26/19 12/26/19 05:36 11:41 17:50 WBC RBC Hgb Hct MCHC RDW MCV MCH Lymph % (Auto) Hood % (Auto) Hood # Eos # Lymph # (Auto) Hood # (Auto) Eos # (Auto) Seg Neutrophils % Seg Neuts % (Manual) Baso # (Auto) Lymphocytes % (Manual) Monocytes % (Manual) Eosinophils % (Manual) Basophils % (Manual) Seg Neutrophils # Seg Neutrophils # Man Lymphocytes # (Manual) Monocytes # (Manual) Eosinophils # (Manual) Nucleated RBC % Basophils # (Manual) PT INR APTT Heparin Anti-Xa Level ABG pH POC ABG pO2 ABG pO2 ABG HCO3 ABG O2 Saturation ABG Base Excess POC ABG pCO2 ABG Hemoglobin ABG Oxyhemoglobin ABG Sodium ABG Chloride ABG Glucose Oxyhemoglobin Sodium Potassium Chloride Carbon Dioxide BUN Creatinine Glucose POC Glucose 156 H 148 H 139 H Lactic Acid Calcium Phosphorus Magnesium AST ALT Lactate Dehydrogenase Total Bilirubin Direct Bilirubin CK-MB (CK-2) C-Reactive Protein NT-Pro-B Natriuret Pep Total Protein Albumin Arterial Blood Glucose Urine WBC (Auto) Urine Creatinine 12/26/19 12/27/19 12/27/19 23:19 05:34 12:02 WBC RBC Hgb Hct MCHC RDW MCV MCH Lymph % (Auto) Hood % (Auto) Hood # Eos # Lymph # (Auto) Hood # (Auto) Eos # (Auto) Seg Neutrophils % Seg Neuts % (Manual) Baso # (Auto) Lymphocytes % (Manual) Monocytes % (Manual) Eosinophils % (Manual) Basophils % (Manual) Seg Neutrophils # Seg Neutrophils # Man Lymphocytes # (Manual) Monocytes # (Manual) Eosinophils # (Manual) Nucleated RBC % Basophils # (Manual) PT INR APTT Heparin Anti-Xa Level ABG pH POC ABG pO2 ABG pO2 ABG HCO3 ABG O2 Saturation ABG Base Excess POC ABG pCO2 ABG Hemoglobin ABG Oxyhemoglobin ABG Sodium ABG Chloride ABG Glucose Oxyhemoglobin Sodium Potassium Chloride Carbon Dioxide BUN Creatinine Glucose POC Glucose 161 H 145 H 157 H Lactic Acid Calcium Phosphorus Magnesium AST ALT Lactate Dehydrogenase Total Bilirubin Direct Bilirubin CK-MB (CK-2) C-Reactive Protein NT-Pro-B Natriuret Pep Total Protein Albumin Arterial Blood Glucose Urine WBC (Auto) Urine Creatinine 12/27/19 12/27/19 12/27/19 17:35 20:11 23:00 WBC RBC Hgb Hct MCHC RDW MCV MCH Lymph % (Auto) Hood % (Auto) Hood # Eos # Lymph # (Auto) Hood # (Auto) Eos # (Auto) Seg Neutrophils % Seg Neuts % (Manual) Baso # (Auto) Lymphocytes % (Manual) Monocytes % (Manual) Eosinophils % (Manual) Basophils % (Manual) Seg Neutrophils # Seg Neutrophils # Man Lymphocytes # (Manual) Monocytes # (Manual) Eosinophils # (Manual) Nucleated RBC % Basophils # (Manual) PT INR APTT Heparin Anti-Xa Level 0.19 L ABG pH POC ABG pO2 ABG pO2 ABG HCO3 ABG O2 Saturation ABG Base Excess POC ABG pCO2 ABG Hemoglobin ABG Oxyhemoglobin ABG Sodium ABG Chloride ABG Glucose Oxyhemoglobin Sodium Potassium Chloride Carbon Dioxide BUN Creatinine Glucose POC Glucose 158 H 155 H Lactic Acid Calcium Phosphorus Magnesium AST ALT Lactate Dehydrogenase Total Bilirubin Direct Bilirubin CK-MB (CK-2) C-Reactive Protein NT-Pro-B Natriuret Pep Total Protein Albumin Arterial Blood Glucose Urine WBC (Auto) Urine Creatinine 12/27/19 12/28/19 12/28/19 23:45 02:41 02:41 WBC 13.0 H RBC 3.48 L Hgb 9.5 L Hct 30.6 L MCHC 31 L RDW 16.6 H MCV MCH 27 L Lymph % (Auto) 13.0 L Hood % (Auto) 8.0 H Hood # Eos # Lymph # (Auto) Hood # (Auto) 1.0 H Eos # (Auto) Seg Neutrophils % 76.3 H Seg Neuts % (Manual) Baso # (Auto) Lymphocytes % (Manual) Monocytes % (Manual) Eosinophils % (Manual) Basophils % (Manual) Seg Neutrophils # 9.9 H Seg Neutrophils # Man Lymphocytes # (Manual) Monocytes # (Manual) Eosinophils # (Manual) Nucleated RBC % Basophils # (Manual) PT INR APTT Heparin Anti-Xa Level ABG pH POC ABG pO2 ABG pO2 ABG HCO3 ABG O2 Saturation ABG Base Excess POC ABG pCO2 ABG Hemoglobin ABG Oxyhemoglobin ABG Sodium ABG Chloride ABG Glucose Oxyhemoglobin Sodium Potassium Chloride Carbon Dioxide BUN 22 H Creatinine 0.6 L Glucose 101 H POC Glucose 130 H Lactic Acid Calcium Phosphorus Magnesium AST ALT Lactate Dehydrogenase Total Bilirubin Direct Bilirubin CK-MB (CK-2) C-Reactive Protein NT-Pro-B Natriuret Pep Total Protein Albumin Arterial Blood Glucose Urine WBC (Auto) Urine Creatinine 12/28/19 12/28/19 12/28/19 06:00 12:34 18:13 WBC RBC Hgb Hct MCHC RDW MCV MCH Lymph % (Auto) Hood % (Auto) Hood # Eos # Lymph # (Auto) Hood # (Auto) Eos # (Auto) Seg Neutrophils % Seg Neuts % (Manual) Baso # (Auto) Lymphocytes % (Manual) Monocytes % (Manual) Eosinophils % (Manual) Basophils % (Manual) Seg Neutrophils # Seg Neutrophils # Man Lymphocytes # (Manual) Monocytes # (Manual) Eosinophils # (Manual) Nucleated RBC % Basophils # (Manual) PT INR APTT Heparin Anti-Xa Level ABG pH POC ABG pO2 ABG pO2 ABG HCO3 ABG O2 Saturation ABG Base Excess POC ABG pCO2 ABG Hemoglobin ABG Oxyhemoglobin ABG Sodium ABG Chloride ABG Glucose Oxyhemoglobin Sodium Potassium Chloride Carbon Dioxide BUN Creatinine Glucose POC Glucose 150 H 161 H 128 H Lactic Acid Calcium Phosphorus Magnesium AST ALT Lactate Dehydrogenase Total Bilirubin Direct Bilirubin CK-MB (CK-2) C-Reactive Protein NT-Pro-B Natriuret Pep Total Protein Albumin Arterial Blood Glucose Urine WBC (Auto) Urine Creatinine 12/28/19 12/29/19 12/29/19 23:36 05:21 11:40 WBC RBC Hgb Hct MCHC RDW MCV MCH Lymph % (Auto) Hood % (Auto) Hood # Eos # Lymph # (Auto) Hood # (Auto) Eos # (Auto) Seg Neutrophils % Seg Neuts % (Manual) Baso # (Auto) Lymphocytes % (Manual) Monocytes % (Manual) Eosinophils % (Manual) Basophils % (Manual) Seg Neutrophils # Seg Neutrophils # Man Lymphocytes # (Manual) Monocytes # (Manual) Eosinophils # (Manual) Nucleated RBC % Basophils # (Manual) PT INR APTT Heparin Anti-Xa Level ABG pH POC ABG pO2 ABG pO2 ABG HCO3 ABG O2 Saturation ABG Base Excess POC ABG pCO2 ABG Hemoglobin ABG Oxyhemoglobin ABG Sodium ABG Chloride ABG Glucose Oxyhemoglobin Sodium Potassium Chloride Carbon Dioxide BUN Creatinine Glucose POC Glucose 137 H 136 H 166 H Lactic Acid Calcium Phosphorus Magnesium AST ALT Lactate Dehydrogenase Total Bilirubin Direct Bilirubin CK-MB (CK-2) C-Reactive Protein NT-Pro-B Natriuret Pep Total Protein Albumin Arterial Blood Glucose Urine WBC (Auto) Urine Creatinine 12/29/19 12/29/19 12/29/19 17:23 19:21 23:38 WBC RBC Hgb Hct MCHC RDW MCV MCH Lymph % (Auto) Hood % (Auto) Hood # Eos # Lymph # (Auto) Hood # (Auto) Eos # (Auto) Seg Neutrophils % Seg Neuts % (Manual) Baso # (Auto) Lymphocytes % (Manual) Monocytes % (Manual) Eosinophils % (Manual) Basophils % (Manual) Seg Neutrophils # Seg Neutrophils # Man Lymphocytes # (Manual) Monocytes # (Manual) Eosinophils # (Manual) Nucleated RBC % Basophils # (Manual) PT INR APTT Heparin Anti-Xa Level 0.20 L ABG pH POC ABG pO2 ABG pO2 ABG HCO3 ABG O2 Saturation ABG Base Excess POC ABG pCO2 ABG Hemoglobin ABG Oxyhemoglobin ABG Sodium ABG Chloride ABG Glucose Oxyhemoglobin Sodium Potassium Chloride Carbon Dioxide BUN Creatinine Glucose POC Glucose 144 H 141 H Lactic Acid Calcium Phosphorus Magnesium AST ALT Lactate Dehydrogenase Total Bilirubin Direct Bilirubin CK-MB (CK-2) C-Reactive Protein NT-Pro-B Natriuret Pep Total Protein Albumin Arterial Blood Glucose Urine WBC (Auto) Urine Creatinine 12/30/19 12/30/19 12/30/19 03:58 03:58 04:59 WBC RBC 3.54 L Hgb 9.8 L Hct 30.7 L MCHC RDW 16.8 H MCV MCH Lymph % (Auto) Hood % (Auto) Hood # Eos # Lymph # (Auto) Hood # (Auto) Eos # (Auto) Seg Neutrophils % Seg Neuts % (Manual) Baso # (Auto) Lymphocytes % (Manual) Monocytes % (Manual) Eosinophils % (Manual) Basophils % (Manual) Seg Neutrophils # Seg Neutrophils # Man Lymphocytes # (Manual) Monocytes # (Manual) Eosinophils # (Manual) Nucleated RBC % Basophils # (Manual) PT INR APTT Heparin Anti-Xa Level ABG pH POC ABG pO2 ABG pO2 ABG HCO3 29.8 H ABG O2 Saturation ABG Base Excess 4.8 H POC ABG pCO2 ABG Hemoglobin 11.2 L ABG Oxyhemoglobin ABG Sodium ABG Chloride ABG Glucose Oxyhemoglobin 93.8 L Sodium Potassium Chloride 97.8 L Carbon Dioxide BUN 26 H Creatinine Glucose 168 H POC Glucose Lactic Acid Calcium Phosphorus Magnesium AST ALT Lactate Dehydrogenase Total Bilirubin Direct Bilirubin CK-MB (CK-2) C-Reactive Protein NT-Pro-B Natriuret Pep Total Protein Albumin Arterial Blood Glucose Urine WBC (Auto) Urine Creatinine 12/30/19 12/30/19 12/30/19 05:45 11:34 17:28 WBC RBC Hgb Hct MCHC RDW MCV MCH Lymph % (Auto) Hood % (Auto) Hood # Eos # Lymph # (Auto) Hood # (Auto) Eos # (Auto) Seg Neutrophils % Seg Neuts % (Manual) Baso # (Auto) Lymphocytes % (Manual) Monocytes % (Manual) Eosinophils % (Manual) Basophils % (Manual) Seg Neutrophils # Seg Neutrophils # Man Lymphocytes # (Manual) Monocytes # (Manual) Eosinophils # (Manual) Nucleated RBC % Basophils # (Manual) PT INR APTT Heparin Anti-Xa Level ABG pH POC ABG pO2 ABG pO2 ABG HCO3 ABG O2 Saturation ABG Base Excess POC ABG pCO2 ABG Hemoglobin ABG Oxyhemoglobin ABG Sodium ABG Chloride ABG Glucose Oxyhemoglobin Sodium Potassium Chloride Carbon Dioxide BUN Creatinine Glucose POC Glucose 163 H 180 H 150 H Lactic Acid Calcium Phosphorus Magnesium AST ALT Lactate Dehydrogenase Total Bilirubin Direct Bilirubin CK-MB (CK-2) C-Reactive Protein NT-Pro-B Natriuret Pep Total Protein Albumin Arterial Blood Glucose Urine WBC (Auto) Urine Creatinine 12/30/19 12/31/19 12/31/19 23:43 04:55 05:07 WBC RBC Hgb Hct MCHC RDW MCV MCH Lymph % (Auto) Hood % (Auto) Hood # Eos # Lymph # (Auto) Hood # (Auto) Eos # (Auto) Seg Neutrophils % Seg Neuts % (Manual) Baso # (Auto) Lymphocytes % (Manual) Monocytes % (Manual) Eosinophils % (Manual) Basophils % (Manual) Seg Neutrophils # Seg Neutrophils # Man Lymphocytes # (Manual) Monocytes # (Manual) Eosinophils # (Manual) Nucleated RBC % Basophils # (Manual) PT INR APTT Heparin Anti-Xa Level ABG pH POC ABG pO2 ABG pO2 ABG HCO3 ABG O2 Saturation ABG Base Excess POC ABG pCO2 ABG Hemoglobin ABG Oxyhemoglobin ABG Sodium ABG Chloride ABG Glucose Oxyhemoglobin Sodium Potassium 5.6 H D Chloride Carbon Dioxide BUN 33 H Creatinine Glucose 131 H POC Glucose 142 H 134 H Lactic Acid Calcium Phosphorus Magnesium AST ALT Lactate Dehydrogenase Total Bilirubin Direct Bilirubin CK-MB (CK-2) C-Reactive Protein NT-Pro-B Natriuret Pep Total Protein Albumin Arterial Blood Glucose Urine WBC (Auto) Urine Creatinine 12/31/19 12/31/19 12/31/19 11:30 17:19 17:36 WBC RBC Hgb Hct MCHC RDW MCV MCH Lymph % (Auto) Hood % (Auto) Hood # Eos # Lymph # (Auto) Hood # (Auto) Eos # (Auto) Seg Neutrophils % Seg Neuts % (Manual) Baso # (Auto) Lymphocytes % (Manual) Monocytes % (Manual) Eosinophils % (Manual) Basophils % (Manual) Seg Neutrophils # Seg Neutrophils # Man Lymphocytes # (Manual) Monocytes # (Manual) Eosinophils # (Manual) Nucleated RBC % Basophils # (Manual) PT INR APTT Heparin Anti-Xa Level ABG pH POC ABG pO2 ABG pO2 ABG HCO3 ABG O2 Saturation ABG Base Excess POC ABG pCO2 ABG Hemoglobin ABG Oxyhemoglobin ABG Sodium ABG Chloride ABG Glucose Oxyhemoglobin Sodium Potassium Chloride Carbon Dioxide BUN 35 H Creatinine Glucose 156 H POC Glucose 158 H 181 H Lactic Acid Calcium Phosphorus Magnesium AST ALT Lactate Dehydrogenase Total Bilirubin Direct Bilirubin CK-MB (CK-2) C-Reactive Protein NT-Pro-B Natriuret Pep Total Protein Albumin Arterial Blood Glucose Urine WBC (Auto) Urine Creatinine 12/31/19 12/31/19 12/31/19 18:16 19:41 21:53 WBC RBC Hgb Hct MCHC RDW MCV MCH Lymph % (Auto) Hood % (Auto) Hood # Eos # Lymph # (Auto) Hood # (Auto) Eos # (Auto) Seg Neutrophils % Seg Neuts % (Manual) Baso # (Auto) Lymphocytes % (Manual) Monocytes % (Manual) Eosinophils % (Manual) Basophils % (Manual) Seg Neutrophils # Seg Neutrophils # Man Lymphocytes # (Manual) Monocytes # (Manual) Eosinophils # (Manual) Nucleated RBC % Basophils # (Manual) PT INR APTT Heparin Anti-Xa Level 0.20 L ABG pH POC ABG pO2 ABG pO2 ABG HCO3 ABG O2 Saturation ABG Base Excess POC ABG pCO2 ABG Hemoglobin ABG Oxyhemoglobin ABG Sodium ABG Chloride ABG Glucose Oxyhemoglobin Sodium Potassium Chloride Carbon Dioxide BUN 34 H Creatinine Glucose 169 H POC Glucose 141 H Lactic Acid Calcium Phosphorus Magnesium AST ALT Lactate Dehydrogenase Total Bilirubin Direct Bilirubin CK-MB (CK-2) C-Reactive Protein NT-Pro-B Natriuret Pep Total Protein Albumin Arterial Blood Glucose Urine WBC (Auto) Urine Creatinine 12/31/19 01/01/20 01/01/20 23:51 05:17 10:40 WBC RBC Hgb Hct MCHC RDW MCV MCH Lymph % (Auto) Hood % (Auto) Hood # Eos # Lymph # (Auto) Hood # (Auto) Eos # (Auto) Seg Neutrophils % Seg Neuts % (Manual) Baso # (Auto) Lymphocytes % (Manual) Monocytes % (Manual) Eosinophils % (Manual) Basophils % (Manual) Seg Neutrophils # Seg Neutrophils # Man Lymphocytes # (Manual) Monocytes # (Manual) Eosinophils # (Manual) Nucleated RBC % Basophils # (Manual) PT INR APTT Heparin Anti-Xa Level ABG pH POC ABG pO2 ABG pO2 ABG HCO3 ABG O2 Saturation ABG Base Excess POC ABG pCO2 ABG Hemoglobin ABG Oxyhemoglobin ABG Sodium ABG Chloride ABG Glucose Oxyhemoglobin Sodium Potassium Chloride Carbon Dioxide BUN 31 H Creatinine 0.7 L Glucose 137 H POC Glucose 131 H 155 H Lactic Acid Calcium Phosphorus Magnesium AST 73 H ALT 97 H Lactate Dehydrogenase Total Bilirubin Direct Bilirubin CK-MB (CK-2) C-Reactive Protein NT-Pro-B Natriuret Pep 3866 H Total Protein Albumin 2.8 L Arterial Blood Glucose Urine WBC (Auto) Urine Creatinine 01/01/20 01/01/20 01/01/20 12:26 15:33 17:53 WBC 14.3 H RBC 3.35 L Hgb 9.1 L Hct 28.8 L MCHC RDW 17.0 H MCV MCH 27 L Lymph % (Auto) 7.0 L Hood % (Auto) 7.6 H Hood # Eos # Lymph # (Auto) 1.0 L Hood # (Auto) 1.1 H Eos # (Auto) Seg Neutrophils % 83.3 H Seg Neuts % (Manual) Baso # (Auto) Lymphocytes % (Manual) Monocytes % (Manual) Eosinophils % (Manual) Basophils % (Manual) Seg Neutrophils # 12.0 H Seg Neutrophils # Man Lymphocytes # (Manual) Monocytes # (Manual) Eosinophils # (Manual) Nucleated RBC % Basophils # (Manual) PT INR APTT Heparin Anti-Xa Level ABG pH POC ABG pO2 ABG pO2 ABG HCO3 ABG O2 Saturation ABG Base Excess POC ABG pCO2 ABG Hemoglobin ABG Oxyhemoglobin ABG Sodium ABG Chloride ABG Glucose Oxyhemoglobin Sodium Potassium Chloride Carbon Dioxide BUN Creatinine Glucose POC Glucose 128 H 128 H Lactic Acid Calcium Phosphorus Magnesium AST ALT Lactate Dehydrogenase Total Bilirubin Direct Bilirubin CK-MB (CK-2) C-Reactive Protein NT-Pro-B Natriuret Pep Total Protein Albumin Arterial Blood Glucose Urine WBC (Auto) Urine Creatinine 01/01/20 01/02/20 01/02/20 23:04 05:39 07:00 WBC RBC Hgb Hct MCHC RDW MCV MCH Lymph % (Auto) Hood % (Auto) Hood # Eos # Lymph # (Auto) Hood # (Auto) Eos # (Auto) Seg Neutrophils % Seg Neuts % (Manual) Baso # (Auto) Lymphocytes % (Manual) Monocytes % (Manual) Eosinophils % (Manual) Basophils % (Manual) Seg Neutrophils # Seg Neutrophils # Man Lymphocytes # (Manual) Monocytes # (Manual) Eosinophils # (Manual) Nucleated RBC % Basophils # (Manual) PT INR APTT Heparin Anti-Xa Level 0.13 L ABG pH POC ABG pO2 ABG pO2 ABG HCO3 ABG O2 Saturation ABG Base Excess POC ABG pCO2 ABG Hemoglobin ABG Oxyhemoglobin ABG Sodium ABG Chloride ABG Glucose Oxyhemoglobin Sodium Potassium Chloride Carbon Dioxide BUN Creatinine Glucose POC Glucose 120 H 169 H Lactic Acid Calcium Phosphorus Magnesium AST ALT Lactate Dehydrogenase Total Bilirubin Direct Bilirubin CK-MB (CK-2) C-Reactive Protein NT-Pro-B Natriuret Pep Total Protein Albumin Arterial Blood Glucose Urine WBC (Auto) Urine Creatinine 01/02/20 01/02/20 01/02/20 12:15 14:06 17:58 WBC RBC Hgb Hct MCHC RDW MCV MCH Lymph % (Auto) Hood % (Auto) Hood # Eos # Lymph # (Auto) Hood # (Auto) Eos # (Auto) Seg Neutrophils % Seg Neuts % (Manual) Baso # (Auto) Lymphocytes % (Manual) Monocytes % (Manual) Eosinophils % (Manual) Basophils % (Manual) Seg Neutrophils # Seg Neutrophils # Man Lymphocytes # (Manual) Monocytes # (Manual) Eosinophils # (Manual) Nucleated RBC % Basophils # (Manual) PT INR APTT Heparin Anti-Xa Level < 0.10 L ABG pH POC ABG pO2 ABG pO2 ABG HCO3 ABG O2 Saturation ABG Base Excess POC ABG pCO2 ABG Hemoglobin ABG Oxyhemoglobin ABG Sodium ABG Chloride ABG Glucose Oxyhemoglobin Sodium Potassium Chloride Carbon Dioxide BUN Creatinine Glucose POC Glucose 190 H 198 H Lactic Acid Calcium Phosphorus Magnesium AST ALT Lactate Dehydrogenase Total Bilirubin Direct Bilirubin CK-MB (CK-2) C-Reactive Protein NT-Pro-B Natriuret Pep Total Protein Albumin Arterial Blood Glucose Urine WBC (Auto) Urine Creatinine 01/02/20 01/02/20 01/03/20 21:43 23:33 05:42 WBC RBC Hgb Hct MCHC RDW MCV MCH Lymph % (Auto) Hood % (Auto) Hood # Eos # Lymph # (Auto) Hood # (Auto) Eos # (Auto) Seg Neutrophils % Seg Neuts % (Manual) Baso # (Auto) Lymphocytes % (Manual) Monocytes % (Manual) Eosinophils % (Manual) Basophils % (Manual) Seg Neutrophils # Seg Neutrophils # Man Lymphocytes # (Manual) Monocytes # (Manual) Eosinophils # (Manual) Nucleated RBC % Basophils # (Manual) PT INR APTT Heparin Anti-Xa Level 0.10 L ABG pH POC ABG pO2 ABG pO2 ABG HCO3 ABG O2 Saturation ABG Base Excess POC ABG pCO2 ABG Hemoglobin ABG Oxyhemoglobin ABG Sodium ABG Chloride ABG Glucose Oxyhemoglobin Sodium Potassium Chloride Carbon Dioxide BUN Creatinine Glucose POC Glucose 180 H 163 H Lactic Acid Calcium Phosphorus Magnesium AST ALT Lactate Dehydrogenase Total Bilirubin Direct Bilirubin CK-MB (CK-2) C-Reactive Protein NT-Pro-B Natriuret Pep Total Protein Albumin Arterial Blood Glucose Urine WBC (Auto) Urine Creatinine 01/03/20 01/03/20 01/03/20 06:50 07:25 07:45 WBC 12.1 H RBC 3.35 L Hgb 9.0 L Hct 28.9 L MCHC 31 L RDW 16.6 H MCV MCH 27 L Lymph % (Auto) 13.0 L Hood % (Auto) 8.6 H Hood # Eos # Lymph # (Auto) Hood # (Auto) 1.0 H Eos # (Auto) Seg Neutrophils % 75.9 H Seg Neuts % (Manual) Baso # (Auto) Lymphocytes % (Manual) Monocytes % (Manual) Eosinophils % (Manual) Basophils % (Manual) Seg Neutrophils # 9.2 H Seg Neutrophils # Man Lymphocytes # (Manual) Monocytes # (Manual) Eosinophils # (Manual) Nucleated RBC % Basophils # (Manual) PT INR APTT Heparin Anti-Xa Level 0.29 L ABG pH POC ABG pO2 ABG pO2 ABG HCO3 ABG O2 Saturation ABG Base Excess POC ABG pCO2 ABG Hemoglobin ABG Oxyhemoglobin ABG Sodium ABG Chloride ABG Glucose Oxyhemoglobin Sodium Potassium 3.3 L D Chloride Carbon Dioxide 35 H D BUN 23 H Creatinine 0.6 L Glucose 149 H POC Glucose Lactic Acid Calcium Phosphorus Magnesium AST ALT 88 H Lactate Dehydrogenase Total Bilirubin Direct Bilirubin CK-MB (CK-2) C-Reactive Protein NT-Pro-B Natriuret Pep Total Protein 6.2 L Albumin 2.9 L Arterial Blood Glucose Urine WBC (Auto) Urine Creatinine 01/03/20 01/03/20 01/03/20 12:05 17:42 18:30 WBC RBC Hgb Hct MCHC RDW MCV MCH Lymph % (Auto) Hood % (Auto) Hood # Eos # Lymph # (Auto) Hood # (Auto) Eos # (Auto) Seg Neutrophils % Seg Neuts % (Manual) Baso # (Auto) Lymphocytes % (Manual) Monocytes % (Manual) Eosinophils % (Manual) Basophils % (Manual) Seg Neutrophils # Seg Neutrophils # Man Lymphocytes # (Manual) Monocytes # (Manual) Eosinophils # (Manual) Nucleated RBC % Basophils # (Manual) PT INR APTT Heparin Anti-Xa Level ABG pH POC ABG pO2 ABG pO2 70.7 L ABG HCO3 36.1 H ABG O2 Saturation 94.4 L ABG Base Excess 10.0 H POC ABG pCO2 ABG Hemoglobin 9.7 L ABG Oxyhemoglobin ABG Sodium ABG Chloride ABG Glucose Oxyhemoglobin 91.8 L Sodium Potassium Chloride Carbon Dioxide BUN Creatinine Glucose POC Glucose 128 H 132 H Lactic Acid Calcium Phosphorus Magnesium AST ALT Lactate Dehydrogenase Total Bilirubin Direct Bilirubin CK-MB (CK-2) C-Reactive Protein NT-Pro-B Natriuret Pep Total Protein Albumin Arterial Blood Glucose Urine WBC (Auto) Urine Creatinine 01/04/20 01/04/20 01/04/20 00:10 04:26 05:23 WBC RBC Hgb Hct MCHC RDW MCV MCH Lymph % (Auto) Hood % (Auto) Hood # Eos # Lymph # (Auto) Hood # (Auto) Eos # (Auto) Seg Neutrophils % Seg Neuts % (Manual) Baso # (Auto) Lymphocytes % (Manual) Monocytes % (Manual) Eosinophils % (Manual) Basophils % (Manual) Seg Neutrophils # Seg Neutrophils # Man Lymphocytes # (Manual) Monocytes # (Manual) Eosinophils # (Manual) Nucleated RBC % Basophils # (Manual) PT INR APTT Heparin Anti-Xa Level 0.16 L ABG pH POC ABG pO2 ABG pO2 ABG HCO3 ABG O2 Saturation ABG Base Excess POC ABG pCO2 ABG Hemoglobin ABG Oxyhemoglobin ABG Sodium ABG Chloride ABG Glucose Oxyhemoglobin Sodium Potassium Chloride Carbon Dioxide BUN Creatinine Glucose POC Glucose 121 H 119 H Lactic Acid Calcium Phosphorus Magnesium AST ALT Lactate Dehydrogenase Total Bilirubin Direct Bilirubin CK-MB (CK-2) C-Reactive Protein NT-Pro-B Natriuret Pep Total Protein Albumin Arterial Blood Glucose Urine WBC (Auto) Urine Creatinine 01/04/20 01/04/20 01/04/20 09:50 09:50 12:18 WBC 15.4 H RBC 3.30 L Hgb 8.7 L Hct 28.2 L MCHC 31 L RDW 17.0 H MCV MCH 26 L Lymph % (Auto) Hood % (Auto) 7.6 H Hood # Eos # Lymph # (Auto) Hood # (Auto) 1.2 H Eos # (Auto) Seg Neutrophils % 75.4 H Seg Neuts % (Manual) Baso # (Auto) Lymphocytes % (Manual) Monocytes % (Manual) Eosinophils % (Manual) Basophils % (Manual) Seg Neutrophils # 11.6 H Seg Neutrophils # Man Lymphocytes # (Manual) Monocytes # (Manual) Eosinophils # (Manual) Nucleated RBC % Basophils # (Manual) PT INR APTT Heparin Anti-Xa Level ABG pH POC ABG pO2 ABG pO2 ABG HCO3 ABG O2 Saturation ABG Base Excess POC ABG pCO2 ABG Hemoglobin ABG Oxyhemoglobin ABG Sodium ABG Chloride ABG Glucose Oxyhemoglobin Sodium 148 H Potassium 3.5 L Chloride Carbon Dioxide 32 H BUN Creatinine 0.6 L Glucose 114 H POC Glucose 111 H Lactic Acid Calcium Phosphorus Magnesium AST ALT 59 H Lactate Dehydrogenase Total Bilirubin Direct Bilirubin CK-MB (CK-2) C-Reactive Protein NT-Pro-B Natriuret Pep Total Protein Albumin 2.6 L Arterial Blood Glucose Urine WBC (Auto) Urine Creatinine 01/05/20 01/05/20 01/05/20 04:05 04:05 05:19 WBC 11.7 H RBC 3.50 L Hgb 9.3 L Hct 29.9 L MCHC 31 L RDW 16.6 H MCV MCH 27 L Lymph % (Auto) 13.1 L Hood % (Auto) 9.7 H Hood # Eos # Lymph # (Auto) Hood # (Auto) 1.1 H Eos # (Auto) Seg Neutrophils % 74.0 H Seg Neuts % (Manual) Baso # (Auto) Lymphocytes % (Manual) Monocytes % (Manual) Eosinophils % (Manual) Basophils % (Manual) Seg Neutrophils # 8.6 H Seg Neutrophils # Man Lymphocytes # (Manual) Monocytes # (Manual) Eosinophils # (Manual) Nucleated RBC % Basophils # (Manual) PT INR APTT Heparin Anti-Xa Level ABG pH POC ABG pO2 ABG pO2 ABG HCO3 ABG O2 Saturation ABG Base Excess POC ABG pCO2 ABG Hemoglobin ABG Oxyhemoglobin ABG Sodium ABG Chloride ABG Glucose Oxyhemoglobin Sodium 151 H Potassium Chloride Carbon Dioxide 34 H BUN Creatinine 0.7 L Glucose POC Glucose 112 H Lactic Acid Calcium Phosphorus Magnesium AST ALT 59 H Lactate Dehydrogenase Total Bilirubin Direct Bilirubin CK-MB (CK-2) C-Reactive Protein NT-Pro-B Natriuret Pep Total Protein 5.8 L Albumin 2.6 L Arterial Blood Glucose Urine WBC (Auto) Urine Creatinine 01/05/20 01/06/20 01/06/20 16:04 00:23 04:44 WBC RBC 3.36 L Hgb 8.9 L Hct 28.7 L MCHC 31 L RDW 16.9 H MCV MCH 26 L Lymph % (Auto) Hood % (Auto) 9.4 H Hood # Eos # Lymph # (Auto) Hood # (Auto) Eos # (Auto) Seg Neutrophils % Seg Neuts % (Manual) Baso # (Auto) Lymphocytes % (Manual) Monocytes % (Manual) Eosinophils % (Manual) Basophils % (Manual) Seg Neutrophils # Seg Neutrophils # Man Lymphocytes # (Manual) Monocytes # (Manual) Eosinophils # (Manual) Nucleated RBC % Basophils # (Manual) PT INR APTT Heparin Anti-Xa Level ABG pH POC ABG pO2 ABG pO2 ABG HCO3 ABG O2 Saturation ABG Base Excess POC ABG pCO2 ABG Hemoglobin ABG Oxyhemoglobin ABG Sodium ABG Chloride ABG Glucose Oxyhemoglobin Sodium 151 H Potassium 3.2 L Chloride Carbon Dioxide 34 H BUN Creatinine 0.6 L Glucose POC Glucose 107 H Lactic Acid Calcium Phosphorus Magnesium AST ALT Lactate Dehydrogenase Total Bilirubin Direct Bilirubin CK-MB (CK-2) C-Reactive Protein NT-Pro-B Natriuret Pep Total Protein Albumin Arterial Blood Glucose Urine WBC (Auto) Urine Creatinine 01/06/20 01/06/20 01/06/20 04:44 05:33 12:04 WBC RBC Hgb Hct MCHC RDW MCV MCH Lymph % (Auto) Hood % (Auto) Hood # Eos # Lymph # (Auto) Hood # (Auto) Eos # (Auto) Seg Neutrophils % Seg Neuts % (Manual) Baso # (Auto) Lymphocytes % (Manual) Monocytes % (Manual) Eosinophils % (Manual) Basophils % (Manual) Seg Neutrophils # Seg Neutrophils # Man Lymphocytes # (Manual) Monocytes # (Manual) Eosinophils # (Manual) Nucleated RBC % Basophils # (Manual) PT INR APTT Heparin Anti-Xa Level ABG pH POC ABG pO2 ABG pO2 ABG HCO3 ABG O2 Saturation ABG Base Excess POC ABG pCO2 ABG Hemoglobin ABG Oxyhemoglobin ABG Sodium ABG Chloride ABG Glucose Oxyhemoglobin Sodium 151 H Potassium 3.4 L Chloride Carbon Dioxide 33 H BUN Creatinine 0.6 L Glucose 118 H POC Glucose 118 H 123 H Lactic Acid Calcium Phosphorus Magnesium AST ALT Lactate Dehydrogenase Total Bilirubin Direct Bilirubin CK-MB (CK-2) C-Reactive Protein NT-Pro-B Natriuret Pep Total Protein 6.2 L Albumin 2.6 L Arterial Blood Glucose Urine WBC (Auto) Urine Creatinine 01/06/20 01/07/20 01/07/20 17:54 00:06 04:10 WBC RBC 3.42 L Hgb 8.9 L Hct 29.0 L MCHC 31 L RDW 17.1 H MCV MCH 26 L Lymph % (Auto) Hood % (Auto) 8.4 H Hood # Eos # Lymph # (Auto) Hood # (Auto) Eos # (Auto) Seg Neutrophils % Seg Neuts % (Manual) Baso # (Auto) Lymphocytes % (Manual) Monocytes % (Manual) Eosinophils % (Manual) Basophils % (Manual) Seg Neutrophils # Seg Neutrophils # Man Lymphocytes # (Manual) Monocytes # (Manual) Eosinophils # (Manual) Nucleated RBC % Basophils # (Manual) PT INR APTT Heparin Anti-Xa Level ABG pH POC ABG pO2 ABG pO2 ABG HCO3 ABG O2 Saturation ABG Base Excess POC ABG pCO2 ABG Hemoglobin ABG Oxyhemoglobin ABG Sodium ABG Chloride ABG Glucose Oxyhemoglobin Sodium Potassium Chloride Carbon Dioxide BUN Creatinine Glucose POC Glucose 112 H 126 H Lactic Acid Calcium Phosphorus Magnesium AST ALT Lactate Dehydrogenase Total Bilirubin Direct Bilirubin CK-MB (CK-2) C-Reactive Protein NT-Pro-B Natriuret Pep Total Protein Albumin Arterial Blood Glucose Urine WBC (Auto) Urine Creatinine 01/07/20 01/07/20 01/07/20 04:10 05:59 12:27 WBC RBC Hgb Hct MCHC RDW MCV MCH Lymph % (Auto) Hood % (Auto) Hood # Eos # Lymph # (Auto) Hood # (Auto) Eos # (Auto) Seg Neutrophils % Seg Neuts % (Manual) Baso # (Auto) Lymphocytes % (Manual) Monocytes % (Manual) Eosinophils % (Manual) Basophils % (Manual) Seg Neutrophils # Seg Neutrophils # Man Lymphocytes # (Manual) Monocytes # (Manual) Eosinophils # (Manual) Nucleated RBC % Basophils # (Manual) PT INR APTT Heparin Anti-Xa Level ABG pH POC ABG pO2 ABG pO2 ABG HCO3 ABG O2 Saturation ABG Base Excess POC ABG pCO2 ABG Hemoglobin ABG Oxyhemoglobin ABG Sodium ABG Chloride ABG Glucose Oxyhemoglobin Sodium 153 H Potassium 3.5 L Chloride Carbon Dioxide 34 H BUN Creatinine 0.6 L Glucose 121 H POC Glucose 121 H 126 H Lactic Acid Calcium Phosphorus Magnesium AST ALT Lactate Dehydrogenase Total Bilirubin Direct Bilirubin CK-MB (CK-2) C-Reactive Protein NT-Pro-B Natriuret Pep Total Protein 5.9 L Albumin 2.4 L Arterial Blood Glucose Urine WBC (Auto) Urine Creatinine 01/07/20 01/08/20 01/08/20 18:12 00:03 05:41 WBC RBC Hgb Hct MCHC RDW MCV MCH Lymph % (Auto) Hood % (Auto) Hood # Eos # Lymph # (Auto) Hood # (Auto) Eos # (Auto) Seg Neutrophils % Seg Neuts % (Manual) Baso # (Auto) Lymphocytes % (Manual) Monocytes % (Manual) Eosinophils % (Manual) Basophils % (Manual) Seg Neutrophils # Seg Neutrophils # Man Lymphocytes # (Manual) Monocytes # (Manual) Eosinophils # (Manual) Nucleated RBC % Basophils # (Manual) PT INR APTT Heparin Anti-Xa Level ABG pH POC ABG pO2 ABG pO2 ABG HCO3 ABG O2 Saturation ABG Base Excess POC ABG pCO2 ABG Hemoglobin ABG Oxyhemoglobin ABG Sodium ABG Chloride ABG Glucose Oxyhemoglobin Sodium Potassium Chloride Carbon Dioxide BUN Creatinine Glucose POC Glucose 124 H 130 H 138 H Lactic Acid Calcium Phosphorus Magnesium AST ALT Lactate Dehydrogenase Total Bilirubin Direct Bilirubin CK-MB (CK-2) C-Reactive Protein NT-Pro-B Natriuret Pep Total Protein Albumin Arterial Blood Glucose Urine WBC (Auto) Urine Creatinine 01/08/20 01/08/20 01/08/20 09:28 11:42 18:21 WBC RBC Hgb Hct MCHC RDW MCV MCH Lymph % (Auto) Hood % (Auto) Hood # Eos # Lymph # (Auto) Hood # (Auto) Eos # (Auto) Seg Neutrophils % Seg Neuts % (Manual) Baso # (Auto) Lymphocytes % (Manual) Monocytes % (Manual) Eosinophils % (Manual) Basophils % (Manual) Seg Neutrophils # Seg Neutrophils # Man Lymphocytes # (Manual) Monocytes # (Manual) Eosinophils # (Manual) Nucleated RBC % Basophils # (Manual) PT INR APTT Heparin Anti-Xa Level ABG pH POC ABG pO2 ABG pO2 ABG HCO3 ABG O2 Saturation ABG Base Excess POC ABG pCO2 ABG Hemoglobin ABG Oxyhemoglobin ABG Sodium ABG Chloride ABG Glucose Oxyhemoglobin Sodium Potassium Chloride Carbon Dioxide BUN Creatinine Glucose POC Glucose 181 H 150 H 129 H Lactic Acid Calcium Phosphorus Magnesium AST ALT Lactate Dehydrogenase Total Bilirubin Direct Bilirubin CK-MB (CK-2) C-Reactive Protein NT-Pro-B Natriuret Pep Total Protein Albumin Arterial Blood Glucose Urine WBC (Auto) Urine Creatinine 01/08/20 01/08/20 01/09/20 19:25 23:55 04:11 WBC RBC 3.43 L Hgb 8.9 L Hct 28.7 L MCHC 31 L RDW 17.6 H MCV MCH 26 L Lymph % (Auto) Hood % (Auto) 8.6 H Hood # Eos # Lymph # (Auto) Hood # (Auto) Eos # (Auto) Seg Neutrophils % Seg Neuts % (Manual) Baso # (Auto) Lymphocytes % (Manual) Monocytes % (Manual) Eosinophils % (Manual) Basophils % (Manual) Seg Neutrophils # Seg Neutrophils # Man Lymphocytes # (Manual) Monocytes # (Manual) Eosinophils # (Manual) Nucleated RBC % Basophils # (Manual) PT INR APTT Heparin Anti-Xa Level ABG pH POC ABG pO2 ABG pO2 ABG HCO3 ABG O2 Saturation ABG Base Excess POC ABG pCO2 ABG Hemoglobin ABG Oxyhemoglobin ABG Sodium ABG Chloride ABG Glucose Oxyhemoglobin Sodium Potassium Chloride Carbon Dioxide BUN Creatinine 0.7 L Glucose 117 H POC Glucose 132 H Lactic Acid Calcium Phosphorus Magnesium AST ALT Lactate Dehydrogenase Total Bilirubin Direct Bilirubin CK-MB (CK-2) C-Reactive Protein NT-Pro-B Natriuret Pep Total Protein Albumin Arterial Blood Glucose Urine WBC (Auto) Urine Creatinine 01/09/20 01/09/20 01/09/20 04:11 05:38 22:58 WBC RBC Hgb Hct MCHC RDW MCV MCH Lymph % (Auto) Hood % (Auto) Hood # Eos # Lymph # (Auto) Hood # (Auto) Eos # (Auto) Seg Neutrophils % Seg Neuts % (Manual) Baso # (Auto) Lymphocytes % (Manual) Monocytes % (Manual) Eosinophils % (Manual) Basophils % (Manual) Seg Neutrophils # Seg Neutrophils # Man Lymphocytes # (Manual) Monocytes # (Manual) Eosinophils # (Manual) Nucleated RBC % Basophils # (Manual) PT INR APTT Heparin Anti-Xa Level ABG pH POC ABG pO2 ABG pO2 ABG HCO3 ABG O2 Saturation ABG Base Excess POC ABG pCO2 ABG Hemoglobin ABG Oxyhemoglobin ABG Sodium ABG Chloride ABG Glucose Oxyhemoglobin Sodium 147 H Potassium 3.3 L D Chloride Carbon Dioxide 32 H BUN Creatinine 0.6 L Glucose 106 H POC Glucose 107 H 113 H Lactic Acid Calcium Phosphorus Magnesium AST ALT Lactate Dehydrogenase Total Bilirubin Direct Bilirubin CK-MB (CK-2) C-Reactive Protein NT-Pro-B Natriuret Pep Total Protein Albumin Arterial Blood Glucose Urine WBC (Auto) Urine Creatinine 01/10/20 01/10/20 01/10/20 04:05 11:36 17:54 WBC RBC Hgb Hct MCHC RDW MCV MCH Lymph % (Auto) Hood % (Auto) Hood # Eos # Lymph # (Auto) Hood # (Auto) Eos # (Auto) Seg Neutrophils % Seg Neuts % (Manual) Baso # (Auto) Lymphocytes % (Manual) Monocytes % (Manual) Eosinophils % (Manual) Basophils % (Manual) Seg Neutrophils # Seg Neutrophils # Man Lymphocytes # (Manual) Monocytes # (Manual) Eosinophils # (Manual) Nucleated RBC % Basophils # (Manual) PT INR APTT Heparin Anti-Xa Level ABG pH POC ABG pO2 ABG pO2 ABG HCO3 ABG O2 Saturation ABG Base Excess POC ABG pCO2 ABG Hemoglobin ABG Oxyhemoglobin ABG Sodium ABG Chloride ABG Glucose Oxyhemoglobin Sodium Potassium Chloride Carbon Dioxide BUN Creatinine 0.7 L Glucose 110 H POC Glucose 129 H 117 H Lactic Acid Calcium Phosphorus Magnesium AST ALT Lactate Dehydrogenase Total Bilirubin Direct Bilirubin CK-MB (CK-2) C-Reactive Protein NT-Pro-B Natriuret Pep Total Protein Albumin Arterial Blood Glucose Urine WBC (Auto) Urine Creatinine 01/10/20 01/11/20 01/11/20 23:52 03:19 12:09 WBC RBC Hgb Hct MCHC RDW MCV MCH Lymph % (Auto) Hood % (Auto) Hood # Eos # Lymph # (Auto) Hood # (Auto) Eos # (Auto) Seg Neutrophils % Seg Neuts % (Manual) Baso # (Auto) Lymphocytes % (Manual) Monocytes % (Manual) Eosinophils % (Manual) Basophils % (Manual) Seg Neutrophils # Seg Neutrophils # Man Lymphocytes # (Manual) Monocytes # (Manual) Eosinophils # (Manual) Nucleated RBC % Basophils # (Manual) PT INR APTT Heparin Anti-Xa Level ABG pH POC ABG pO2 ABG pO2 ABG HCO3 ABG O2 Saturation ABG Base Excess POC ABG pCO2 ABG Hemoglobin ABG Oxyhemoglobin ABG Sodium ABG Chloride ABG Glucose Oxyhemoglobin Sodium Potassium Chloride Carbon Dioxide BUN Creatinine Glucose POC Glucose 117 H 136 H 115 H Lactic Acid Calcium Phosphorus Magnesium AST ALT Lactate Dehydrogenase Total Bilirubin Direct Bilirubin CK-MB (CK-2) C-Reactive Protein NT-Pro-B Natriuret Pep Total Protein Albumin Arterial Blood Glucose Urine WBC (Auto) Urine Creatinine 01/11/20 01/11/20 01/12/20 18:27 23:28 00:23 WBC RBC Hgb 9.8 L Hct 31.6 L MCHC 31 L RDW 17.8 H MCV 83 L MCH 26 L Lymph % (Auto) Hood % (Auto) 8.0 H Hood # Eos # Lymph # (Auto) Hood # (Auto) Eos # (Auto) Seg Neutrophils % Seg Neuts % (Manual) Baso # (Auto) Lymphocytes % (Manual) Monocytes % (Manual) Eosinophils % (Manual) Basophils % (Manual) Seg Neutrophils # Seg Neutrophils # Man Lymphocytes # (Manual) Monocytes # (Manual) Eosinophils # (Manual) Nucleated RBC % Basophils # (Manual) PT INR APTT Heparin Anti-Xa Level ABG pH POC ABG pO2 ABG pO2 ABG HCO3 ABG O2 Saturation ABG Base Excess POC ABG pCO2 ABG Hemoglobin ABG Oxyhemoglobin ABG Sodium ABG Chloride ABG Glucose Oxyhemoglobin Sodium Potassium Chloride Carbon Dioxide BUN Creatinine Glucose POC Glucose 118 H 122 H Lactic Acid Calcium Phosphorus Magnesium AST ALT Lactate Dehydrogenase Total Bilirubin Direct Bilirubin CK-MB (CK-2) C-Reactive Protein NT-Pro-B Natriuret Pep Total Protein Albumin Arterial Blood Glucose Urine WBC (Auto) Urine Creatinine 01/12/20 01/12/20 01/12/20 00:23 04:18 04:18 WBC RBC Hgb 9.6 L Hct 30.9 L MCHC 31 L RDW 17.3 H MCV 81 L MCH 25 L Lymph % (Auto) Hood % (Auto) Hood # Eos # Lymph # (Auto) Hood # (Auto) Eos # (Auto) Seg Neutrophils % Seg Neuts % (Manual) Baso # (Auto) Lymphocytes % (Manual) Monocytes % (Manual) Eosinophils % (Manual) Basophils % (Manual) Seg Neutrophils # Seg Neutrophils # Man Lymphocytes # (Manual) Monocytes # (Manual) Eosinophils # (Manual) Nucleated RBC % Basophils # (Manual) PT INR APTT Heparin Anti-Xa Level ABG pH POC ABG pO2 ABG pO2 ABG HCO3 ABG O2 Saturation ABG Base Excess POC ABG pCO2 ABG Hemoglobin ABG Oxyhemoglobin ABG Sodium ABG Chloride ABG Glucose Oxyhemoglobin Sodium Potassium Chloride Carbon Dioxide BUN Creatinine 0.7 L 0.7 L Glucose 111 H 108 H POC Glucose Lactic Acid Calcium Phosphorus Magnesium AST ALT Lactate Dehydrogenase Total Bilirubin Direct Bilirubin CK-MB (CK-2) C-Reactive Protein NT-Pro-B Natriuret Pep Total Protein Albumin 2.6 L Arterial Blood Glucose Urine WBC (Auto) Urine Creatinine 01/12/20 01/12/20 01/12/20 06:03 12:27 13:58 WBC RBC Hgb Hct MCHC RDW MCV MCH Lymph % (Auto) Hood % (Auto) Hood # Eos # Lymph # (Auto) Hood # (Auto) Eos # (Auto) Seg Neutrophils % Seg Neuts % (Manual) Baso # (Auto) Lymphocytes % (Manual) Monocytes % (Manual) Eosinophils % (Manual) Basophils % (Manual) Seg Neutrophils # Seg Neutrophils # Man Lymphocytes # (Manual) Monocytes # (Manual) Eosinophils # (Manual) Nucleated RBC % Basophils # (Manual) PT INR APTT Heparin Anti-Xa Level ABG pH 7.453 H POC ABG pO2 76.6 L ABG pO2 ABG HCO3 ABG O2 Saturation ABG Base Excess POC ABG pCO2 ABG Hemoglobin 10.3 L ABG Oxyhemoglobin ABG Sodium ABG Chloride ABG Glucose 99 H Oxyhemoglobin Sodium Potassium Chloride Carbon Dioxide BUN Creatinine Glucose POC Glucose 128 H 121 H Lactic Acid Calcium Phosphorus Magnesium AST ALT Lactate Dehydrogenase Total Bilirubin Direct Bilirubin CK-MB (CK-2) C-Reactive Protein NT-Pro-B Natriuret Pep Total Protein Albumin Arterial Blood Glucose 99 H Urine WBC (Auto) Urine Creatinine 01/12/20 01/13/20 01/13/20 18:24 12:01 17:46 WBC RBC Hgb Hct MCHC RDW MCV MCH Lymph % (Auto) Hood % (Auto) Hood # Eos # Lymph # (Auto) Hood # (Auto) Eos # (Auto) Seg Neutrophils % Seg Neuts % (Manual) Baso # (Auto) Lymphocytes % (Manual) Monocytes % (Manual) Eosinophils % (Manual) Basophils % (Manual) Seg Neutrophils # Seg Neutrophils # Man Lymphocytes # (Manual) Monocytes # (Manual) Eosinophils # (Manual) Nucleated RBC % Basophils # (Manual) PT INR APTT Heparin Anti-Xa Level ABG pH POC ABG pO2 ABG pO2 ABG HCO3 ABG O2 Saturation ABG Base Excess POC ABG pCO2 ABG Hemoglobin ABG Oxyhemoglobin ABG Sodium ABG Chloride ABG Glucose Oxyhemoglobin Sodium Potassium Chloride Carbon Dioxide BUN Creatinine Glucose POC Glucose 119 H 107 H 124 H Lactic Acid Calcium Phosphorus Magnesium AST ALT Lactate Dehydrogenase Total Bilirubin Direct Bilirubin CK-MB (CK-2) C-Reactive Protein NT-Pro-B Natriuret Pep Total Protein Albumin Arterial Blood Glucose Urine WBC (Auto) Urine Creatinine 01/13/20 01/14/20 01/14/20 20:40 00:10 05:33 WBC RBC Hgb Hct MCHC RDW MCV MCH Lymph % (Auto) Hood % (Auto) Hood # Eos # Lymph # (Auto) Hood # (Auto) Eos # (Auto) Seg Neutrophils % Seg Neuts % (Manual) Baso # (Auto) Lymphocytes % (Manual) Monocytes % (Manual) Eosinophils % (Manual) Basophils % (Manual) Seg Neutrophils # Seg Neutrophils # Man Lymphocytes # (Manual) Monocytes # (Manual) Eosinophils # (Manual) Nucleated RBC % Basophils # (Manual) PT INR APTT Heparin Anti-Xa Level ABG pH POC ABG pO2 ABG pO2 65.3 L ABG HCO3 31.8 H ABG O2 Saturation 93.5 L ABG Base Excess 6.7 H POC ABG pCO2 ABG Hemoglobin 13.3 L ABG Oxyhemoglobin ABG Sodium ABG Chloride ABG Glucose Oxyhemoglobin 90.9 L Sodium Potassium Chloride Carbon Dioxide BUN Creatinine Glucose POC Glucose 111 H 111 H Lactic Acid Calcium Phosphorus Magnesium AST ALT Lactate Dehydrogenase Total Bilirubin Direct Bilirubin CK-MB (CK-2) C-Reactive Protein NT-Pro-B Natriuret Pep Total Protein Albumin Arterial Blood Glucose Urine WBC (Auto) Urine Creatinine 01/14/20 01/14/20 01/14/20 12:10 16:14 16:14 WBC RBC Hgb 10.6 L Hct 34.2 L MCHC 31 L RDW 18.3 H MCV 83 L MCH 26 L Lymph % (Auto) Hood % (Auto) 7.4 H Hood # Eos # Lymph # (Auto) Hood # (Auto) Eos # (Auto) Seg Neutrophils % 71.9 H Seg Neuts % (Manual) Baso # (Auto) Lymphocytes % (Manual) Monocytes % (Manual) Eosinophils % (Manual) Basophils % (Manual) Seg Neutrophils # Seg Neutrophils # Man Lymphocytes # (Manual) Monocytes # (Manual) Eosinophils # (Manual) Nucleated RBC % Basophils # (Manual) PT INR APTT Heparin Anti-Xa Level ABG pH POC ABG pO2 ABG pO2 ABG HCO3 ABG O2 Saturation ABG Base Excess POC ABG pCO2 ABG Hemoglobin ABG Oxyhemoglobin ABG Sodium ABG Chloride ABG Glucose Oxyhemoglobin Sodium Potassium Chloride Carbon Dioxide 31 H BUN Creatinine 0.6 L Glucose 131 H POC Glucose 139 H Lactic Acid Calcium Phosphorus Magnesium AST ALT Lactate Dehydrogenase Total Bilirubin Direct Bilirubin CK-MB (CK-2) C-Reactive Protein NT-Pro-B Natriuret Pep Total Protein Albumin Arterial Blood Glucose Urine WBC (Auto) Urine Creatinine 01/14/20 01/15/20 01/15/20 18:05 00:52 05:35 WBC RBC Hgb Hct MCHC RDW MCV MCH Lymph % (Auto) Hood % (Auto) Hood # Eos # Lymph # (Auto) Hood # (Auto) Eos # (Auto) Seg Neutrophils % Seg Neuts % (Manual) Baso # (Auto) Lymphocytes % (Manual) Monocytes % (Manual) Eosinophils % (Manual) Basophils % (Manual) Seg Neutrophils # Seg Neutrophils # Man Lymphocytes # (Manual) Monocytes # (Manual) Eosinophils # (Manual) Nucleated RBC % Basophils # (Manual) PT INR APTT Heparin Anti-Xa Level ABG pH POC ABG pO2 ABG pO2 ABG HCO3 ABG O2 Saturation ABG Base Excess POC ABG pCO2 ABG Hemoglobin ABG Oxyhemoglobin ABG Sodium ABG Chloride ABG Glucose Oxyhemoglobin Sodium Potassium Chloride Carbon Dioxide BUN Creatinine Glucose POC Glucose 147 H 140 H 159 H Lactic Acid Calcium Phosphorus Magnesium AST ALT Lactate Dehydrogenase Total Bilirubin Direct Bilirubin CK-MB (CK-2) C-Reactive Protein NT-Pro-B Natriuret Pep Total Protein Albumin Arterial Blood Glucose Urine WBC (Auto) Urine Creatinine 01/15/20 01/15/20 01/16/20 12:52 17:43 00:32 WBC RBC Hgb Hct MCHC RDW MCV MCH Lymph % (Auto) Hood % (Auto) Hood # Eos # Lymph # (Auto) Hood # (Auto) Eos # (Auto) Seg Neutrophils % Seg Neuts % (Manual) Baso # (Auto) Lymphocytes % (Manual) Monocytes % (Manual) Eosinophils % (Manual) Basophils % (Manual) Seg Neutrophils # Seg Neutrophils # Man Lymphocytes # (Manual) Monocytes # (Manual) Eosinophils # (Manual) Nucleated RBC % Basophils # (Manual) PT INR APTT Heparin Anti-Xa Level ABG pH POC ABG pO2 ABG pO2 ABG HCO3 ABG O2 Saturation ABG Base Excess POC ABG pCO2 ABG Hemoglobin ABG Oxyhemoglobin ABG Sodium ABG Chloride ABG Glucose Oxyhemoglobin Sodium Potassium Chloride Carbon Dioxide BUN Creatinine Glucose POC Glucose 164 H 167 H 153 H Lactic Acid Calcium Phosphorus Magnesium AST ALT Lactate Dehydrogenase Total Bilirubin Direct Bilirubin CK-MB (CK-2) C-Reactive Protein NT-Pro-B Natriuret Pep Total Protein Albumin Arterial Blood Glucose Urine WBC (Auto) Urine Creatinine 01/16/20 01/16/20 01/17/20 05:46 11:48 06:38 WBC RBC Hgb Hct MCHC RDW MCV MCH Lymph % (Auto) Hood % (Auto) Hood # Eos # Lymph # (Auto) Hood # (Auto) Eos # (Auto) Seg Neutrophils % Seg Neuts % (Manual) Baso # (Auto) Lymphocytes % (Manual) Monocytes % (Manual) Eosinophils % (Manual) Basophils % (Manual) Seg Neutrophils # Seg Neutrophils # Man Lymphocytes # (Manual) Monocytes # (Manual) Eosinophils # (Manual) Nucleated RBC % Basophils # (Manual) PT INR APTT Heparin Anti-Xa Level ABG pH POC ABG pO2 ABG pO2 ABG HCO3 ABG O2 Saturation ABG Base Excess POC ABG pCO2 ABG Hemoglobin ABG Oxyhemoglobin ABG Sodium ABG Chloride ABG Glucose Oxyhemoglobin Sodium Potassium Chloride Carbon Dioxide BUN Creatinine Glucose POC Glucose 163 H 155 H 116 H Lactic Acid Calcium Phosphorus Magnesium AST ALT Lactate Dehydrogenase Total Bilirubin Direct Bilirubin CK-MB (CK-2) C-Reactive Protein NT-Pro-B Natriuret Pep Total Protein Albumin Arterial Blood Glucose Urine WBC (Auto) Urine Creatinine 01/17/20 01/17/20 01/18/20 11:36 17:43 00:12 WBC RBC Hgb Hct MCHC RDW MCV MCH Lymph % (Auto) Hood % (Auto) Hood # Eos # Lymph # (Auto) Hood # (Auto) Eos # (Auto) Seg Neutrophils % Seg Neuts % (Manual) Baso # (Auto) Lymphocytes % (Manual) Monocytes % (Manual) Eosinophils % (Manual) Basophils % (Manual) Seg Neutrophils # Seg Neutrophils # Man Lymphocytes # (Manual) Monocytes # (Manual) Eosinophils # (Manual) Nucleated RBC % Basophils # (Manual) PT INR APTT Heparin Anti-Xa Level ABG pH POC ABG pO2 ABG pO2 ABG HCO3 ABG O2 Saturation ABG Base Excess POC ABG pCO2 ABG Hemoglobin ABG Oxyhemoglobin ABG Sodium ABG Chloride ABG Glucose Oxyhemoglobin Sodium Potassium Chloride Carbon Dioxide BUN Creatinine Glucose POC Glucose 110 H 134 H 108 H Lactic Acid Calcium Phosphorus Magnesium AST ALT Lactate Dehydrogenase Total Bilirubin Direct Bilirubin CK-MB (CK-2) C-Reactive Protein NT-Pro-B Natriuret Pep Total Protein Albumin Arterial Blood Glucose Urine WBC (Auto) Urine Creatinine 01/18/20 01/18/20 01/18/20 05:37 06:46 06:46 WBC RBC Hgb 10.1 L Hct 32.2 L MCHC 31 L RDW 18.1 H MCV 81 L MCH 25 L Lymph % (Auto) Hood % (Auto) Hood # Eos # Lymph # (Auto) Hood # (Auto) Eos # (Auto) Seg Neutrophils % 71.9 H Seg Neuts % (Manual) Baso # (Auto) Lymphocytes % (Manual) Monocytes % (Manual) Eosinophils % (Manual) Basophils % (Manual) Seg Neutrophils # Seg Neutrophils # Man Lymphocytes # (Manual) Monocytes # (Manual) Eosinophils # (Manual) Nucleated RBC % Basophils # (Manual) PT INR APTT Heparin Anti-Xa Level ABG pH POC ABG pO2 ABG pO2 ABG HCO3 ABG O2 Saturation ABG Base Excess POC ABG pCO2 ABG Hemoglobin ABG Oxyhemoglobin ABG Sodium ABG Chloride ABG Glucose Oxyhemoglobin Sodium Potassium Chloride Carbon Dioxide BUN Creatinine 0.7 L Glucose 155 H POC Glucose 168 H Lactic Acid Calcium Phosphorus Magnesium AST ALT Lactate Dehydrogenase Total Bilirubin Direct Bilirubin CK-MB (CK-2) C-Reactive Protein NT-Pro-B Natriuret Pep Total Protein Albumin Arterial Blood Glucose Urine WBC (Auto) Urine Creatinine 01/18/20 01/18/20 01/18/20 12:05 17:14 23:28 WBC RBC Hgb Hct MCHC RDW MCV MCH Lymph % (Auto) Hood % (Auto) Hood # Eos # Lymph # (Auto) Hood # (Auto) Eos # (Auto) Seg Neutrophils % Seg Neuts % (Manual) Baso # (Auto) Lymphocytes % (Manual) Monocytes % (Manual) Eosinophils % (Manual) Basophils % (Manual) Seg Neutrophils # Seg Neutrophils # Man Lymphocytes # (Manual) Monocytes # (Manual) Eosinophils # (Manual) Nucleated RBC % Basophils # (Manual) PT INR APTT Heparin Anti-Xa Level ABG pH POC ABG pO2 ABG pO2 ABG HCO3 ABG O2 Saturation ABG Base Excess POC ABG pCO2 ABG Hemoglobin ABG Oxyhemoglobin ABG Sodium ABG Chloride ABG Glucose Oxyhemoglobin Sodium Potassium Chloride Carbon Dioxide BUN Creatinine Glucose POC Glucose 128 H 126 H 128 H Lactic Acid Calcium Phosphorus Magnesium AST ALT Lactate Dehydrogenase Total Bilirubin Direct Bilirubin CK-MB (CK-2) C-Reactive Protein NT-Pro-B Natriuret Pep Total Protein Albumin Arterial Blood Glucose Urine WBC (Auto) Urine Creatinine 01/19/20 01/19/20 01/19/20 05:39 12:33 17:36 WBC RBC Hgb Hct MCHC RDW MCV MCH Lymph % (Auto) Hood % (Auto) Hood # Eos # Lymph # (Auto) Hood # (Auto) Eos # (Auto) Seg Neutrophils % Seg Neuts % (Manual) Baso # (Auto) Lymphocytes % (Manual) Monocytes % (Manual) Eosinophils % (Manual) Basophils % (Manual) Seg Neutrophils # Seg Neutrophils # Man Lymphocytes # (Manual) Monocytes # (Manual) Eosinophils # (Manual) Nucleated RBC % Basophils # (Manual) PT INR APTT Heparin Anti-Xa Level ABG pH POC ABG pO2 ABG pO2 ABG HCO3 ABG O2 Saturation ABG Base Excess POC ABG pCO2 ABG Hemoglobin ABG Oxyhemoglobin ABG Sodium ABG Chloride ABG Glucose Oxyhemoglobin Sodium Potassium Chloride Carbon Dioxide BUN Creatinine Glucose POC Glucose 164 H 171 H 152 H Lactic Acid Calcium Phosphorus Magnesium AST ALT Lactate Dehydrogenase Total Bilirubin Direct Bilirubin CK-MB (CK-2) C-Reactive Protein NT-Pro-B Natriuret Pep Total Protein Albumin Arterial Blood Glucose Urine WBC (Auto) Urine Creatinine 01/20/20 01/20/20 01/20/20 00:12 05:20 05:35 WBC RBC Hgb 9.2 L Hct 29.4 L MCHC 31 L RDW 17.9 H MCV 81 L MCH 25 L Lymph % (Auto) Hood % (Auto) Hood # Eos # Lymph # (Auto) Hood # (Auto) Eos # (Auto) Seg Neutrophils % Seg Neuts % (Manual) Baso # (Auto) Lymphocytes % (Manual) Monocytes % (Manual) Eosinophils % (Manual) Basophils % (Manual) Seg Neutrophils # Seg Neutrophils # Man Lymphocytes # (Manual) Monocytes # (Manual) Eosinophils # (Manual) Nucleated RBC % Basophils # (Manual) PT INR APTT Heparin Anti-Xa Level ABG pH POC ABG pO2 ABG pO2 ABG HCO3 ABG O2 Saturation ABG Base Excess POC ABG pCO2 ABG Hemoglobin ABG Oxyhemoglobin ABG Sodium ABG Chloride ABG Glucose Oxyhemoglobin Sodium Potassium Chloride Carbon Dioxide BUN Creatinine Glucose POC Glucose 120 H 136 H Lactic Acid Calcium Phosphorus Magnesium AST ALT Lactate Dehydrogenase Total Bilirubin Direct Bilirubin CK-MB (CK-2) C-Reactive Protein NT-Pro-B Natriuret Pep Total Protein Albumin Arterial Blood Glucose Urine WBC (Auto) Urine Creatinine 01/20/20 01/20/20 01/20/20 05:40 11:58 14:55 WBC RBC Hgb 9.0 L Hct 28.3 L MCHC RDW MCV MCH Lymph % (Auto) Hood % (Auto) Hood # Eos # Lymph # (Auto) Hood # (Auto) Eos # (Auto) Seg Neutrophils % Seg Neuts % (Manual) Baso # (Auto) Lymphocytes % (Manual) Monocytes % (Manual) Eosinophils % (Manual) Basophils % (Manual) Seg Neutrophils # Seg Neutrophils # Man Lymphocytes # (Manual) Monocytes # (Manual) Eosinophils # (Manual) Nucleated RBC % Basophils # (Manual) PT INR APTT Heparin Anti-Xa Level ABG pH POC ABG pO2 ABG pO2 ABG HCO3 ABG O2 Saturation ABG Base Excess POC ABG pCO2 ABG Hemoglobin ABG Oxyhemoglobin ABG Sodium ABG Chloride ABG Glucose Oxyhemoglobin Sodium Potassium Chloride Carbon Dioxide 32 H BUN 22 H Creatinine 0.7 L Glucose 128 H POC Glucose 152 H Lactic Acid Calcium Phosphorus Magnesium AST ALT Lactate Dehydrogenase Total Bilirubin Direct Bilirubin CK-MB (CK-2) C-Reactive Protein NT-Pro-B Natriuret Pep Total Protein Albumin Arterial Blood Glucose Urine WBC (Auto) Urine Creatinine 01/20/20 01/20/20 01/20/20 14:55 18:14 21:35 WBC RBC Hgb Hct MCHC RDW MCV MCH Lymph % (Auto) Hood % (Auto) Hood # Eos # Lymph # (Auto) Hood # (Auto) Eos # (Auto) Seg Neutrophils % Seg Neuts % (Manual) Baso # (Auto) Lymphocytes % (Manual) Monocytes % (Manual) Eosinophils % (Manual) Basophils % (Manual) Seg Neutrophils # Seg Neutrophils # Man Lymphocytes # (Manual) Monocytes # (Manual) Eosinophils # (Manual) Nucleated RBC % Basophils # (Manual) PT 20.4 H INR 1.72 H APTT 40.6 H Heparin Anti-Xa Level > 2.00 H ABG pH POC ABG pO2 ABG pO2 ABG HCO3 ABG O2 Saturation ABG Base Excess POC ABG pCO2 ABG Hemoglobin ABG Oxyhemoglobin ABG Sodium ABG Chloride ABG Glucose Oxyhemoglobin Sodium Potassium Chloride Carbon Dioxide BUN Creatinine Glucose POC Glucose 150 H Lactic Acid Calcium Phosphorus Magnesium AST ALT Lactate Dehydrogenase Total Bilirubin Direct Bilirubin CK-MB (CK-2) C-Reactive Protein NT-Pro-B Natriuret Pep Total Protein Albumin Arterial Blood Glucose Urine WBC (Auto) Urine Creatinine 01/21/20 01/21/20 01/21/20 00:30 05:47 05:59 WBC RBC Hgb Hct MCHC RDW MCV MCH Lymph % (Auto) Hood % (Auto) Hood # Eos # Lymph # (Auto) Hood # (Auto) Eos # (Auto) Seg Neutrophils % Seg Neuts % (Manual) Baso # (Auto) Lymphocytes % (Manual) Monocytes % (Manual) Eosinophils % (Manual) Basophils % (Manual) Seg Neutrophils # Seg Neutrophils # Man Lymphocytes # (Manual) Monocytes # (Manual) Eosinophils # (Manual) Nucleated RBC % Basophils # (Manual) PT INR APTT Heparin Anti-Xa Level 1.93 H ABG pH POC ABG pO2 ABG pO2 ABG HCO3 ABG O2 Saturation ABG Base Excess POC ABG pCO2 ABG Hemoglobin ABG Oxyhemoglobin ABG Sodium ABG Chloride ABG Glucose Oxyhemoglobin Sodium Potassium Chloride Carbon Dioxide BUN Creatinine Glucose POC Glucose 126 H 148 H Lactic Acid Calcium Phosphorus Magnesium AST ALT Lactate Dehydrogenase Total Bilirubin Direct Bilirubin CK-MB (CK-2) C-Reactive Protein NT-Pro-B Natriuret Pep Total Protein Albumin Arterial Blood Glucose Urine WBC (Auto) Urine Creatinine 01/21/20 01/21/20 01/21/20 12:32 18:20 23:54 WBC RBC Hgb Hct MCHC RDW MCV MCH Lymph % (Auto) Hood % (Auto) Hood # Eos # Lymph # (Auto) Hood # (Auto) Eos # (Auto) Seg Neutrophils % Seg Neuts % (Manual) Baso # (Auto) Lymphocytes % (Manual) Monocytes % (Manual) Eosinophils % (Manual) Basophils % (Manual) Seg Neutrophils # Seg Neutrophils # Man Lymphocytes # (Manual) Monocytes # (Manual) Eosinophils # (Manual) Nucleated RBC % Basophils # (Manual) PT INR APTT Heparin Anti-Xa Level 1.28 H ABG pH POC ABG pO2 ABG pO2 ABG HCO3 ABG O2 Saturation ABG Base Excess POC ABG pCO2 ABG Hemoglobin ABG Oxyhemoglobin ABG Sodium ABG Chloride ABG Glucose Oxyhemoglobin Sodium Potassium Chloride Carbon Dioxide BUN Creatinine Glucose POC Glucose 112 H 146 H Lactic Acid Calcium Phosphorus Magnesium AST ALT Lactate Dehydrogenase Total Bilirubin Direct Bilirubin CK-MB (CK-2) C-Reactive Protein NT-Pro-B Natriuret Pep Total Protein Albumin Arterial Blood Glucose Urine WBC (Auto) Urine Creatinine 01/22/20 01/22/20 01/22/20 04:45 04:45 05:48 WBC RBC Hgb 9.3 L Hct 29.0 L MCHC RDW MCV MCH Lymph % (Auto) Hood % (Auto) Hood # Eos # Lymph # (Auto) Hood # (Auto) Eos # (Auto) Seg Neutrophils % Seg Neuts % (Manual) Baso # (Auto) Lymphocytes % (Manual) Monocytes % (Manual) Eosinophils % (Manual) Basophils % (Manual) Seg Neutrophils # Seg Neutrophils # Man Lymphocytes # (Manual) Monocytes # (Manual) Eosinophils # (Manual) Nucleated RBC % Basophils # (Manual) PT INR APTT Heparin Anti-Xa Level 1.34 H ABG pH POC ABG pO2 ABG pO2 ABG HCO3 ABG O2 Saturation ABG Base Excess POC ABG pCO2 ABG Hemoglobin ABG Oxyhemoglobin ABG Sodium ABG Chloride ABG Glucose Oxyhemoglobin Sodium Potassium Chloride Carbon Dioxide BUN Creatinine Glucose POC Glucose 142 H Lactic Acid Calcium Phosphorus Magnesium AST ALT Lactate Dehydrogenase Total Bilirubin Direct Bilirubin CK-MB (CK-2) C-Reactive Protein NT-Pro-B Natriuret Pep Total Protein Albumin Arterial Blood Glucose Urine WBC (Auto) Urine Creatinine 01/22/20 01/22/20 01/22/20 08:09 08:22 09:58 WBC RBC Hgb Hct MCHC RDW MCV MCH Lymph % (Auto) Hood % (Auto) Hood # Eos # Lymph # (Auto) Hood # (Auto) Eos # (Auto) Seg Neutrophils % Seg Neuts % (Manual) Baso # (Auto) Lymphocytes % (Manual) Monocytes % (Manual) Eosinophils % (Manual) Basophils % (Manual) Seg Neutrophils # Seg Neutrophils # Man Lymphocytes # (Manual) Monocytes # (Manual) Eosinophils # (Manual) Nucleated RBC % Basophils # (Manual) PT 16.9 H INR 1.34 H APTT Heparin Anti-Xa Level ABG pH POC ABG pO2 ABG pO2 ABG HCO3 ABG O2 Saturation ABG Base Excess POC ABG pCO2 ABG Hemoglobin ABG Oxyhemoglobin ABG Sodium ABG Chloride ABG Glucose Oxyhemoglobin Sodium Potassium Chloride 97.8 L Carbon Dioxide BUN 29 H Creatinine Glucose 128 H POC Glucose 131 H Lactic Acid Calcium Phosphorus Magnesium AST ALT Lactate Dehydrogenase Total Bilirubin Direct Bilirubin CK-MB (CK-2) C-Reactive Protein NT-Pro-B Natriuret Pep Total Protein Albumin Arterial Blood Glucose Urine WBC (Auto) Urine Creatinine 01/22/20 01/22/20 01/22/20 12:44 16:13 18:18 WBC RBC Hgb Hct MCHC RDW MCV MCH Lymph % (Auto) Hood % (Auto) Hood # Eos # Lymph # (Auto) Hood # (Auto) Eos # (Auto) Seg Neutrophils % Seg Neuts % (Manual) Baso # (Auto) Lymphocytes % (Manual) Monocytes % (Manual) Eosinophils % (Manual) Basophils % (Manual) Seg Neutrophils # Seg Neutrophils # Man Lymphocytes # (Manual) Monocytes # (Manual) Eosinophils # (Manual) Nucleated RBC % Basophils # (Manual) PT INR APTT Heparin Anti-Xa Level ABG pH POC ABG pO2 ABG pO2 ABG HCO3 ABG O2 Saturation ABG Base Excess POC ABG pCO2 ABG Hemoglobin ABG Oxyhemoglobin ABG Sodium ABG Chloride ABG Glucose Oxyhemoglobin Sodium Potassium Chloride Carbon Dioxide BUN Creatinine Glucose POC Glucose 156 H 133 H 155 H Lactic Acid Calcium Phosphorus Magnesium AST ALT Lactate Dehydrogenase Total Bilirubin Direct Bilirubin CK-MB (CK-2) C-Reactive Protein NT-Pro-B Natriuret Pep Total Protein Albumin Arterial Blood Glucose Urine WBC (Auto) Urine Creatinine 01/22/20 01/23/20 01/23/20 23:22 05:37 12:59 WBC RBC Hgb Hct MCHC RDW MCV MCH Lymph % (Auto) Hood % (Auto) Hood # Eos # Lymph # (Auto) Hood # (Auto) Eos # (Auto) Seg Neutrophils % Seg Neuts % (Manual) Baso # (Auto) Lymphocytes % (Manual) Monocytes % (Manual) Eosinophils % (Manual) Basophils % (Manual) Seg Neutrophils # Seg Neutrophils # Man Lymphocytes # (Manual) Monocytes # (Manual) Eosinophils # (Manual) Nucleated RBC % Basophils # (Manual) PT INR APTT Heparin Anti-Xa Level ABG pH POC ABG pO2 ABG pO2 ABG HCO3 ABG O2 Saturation ABG Base Excess POC ABG pCO2 ABG Hemoglobin ABG Oxyhemoglobin ABG Sodium ABG Chloride ABG Glucose Oxyhemoglobin Sodium Potassium Chloride Carbon Dioxide BUN Creatinine Glucose POC Glucose 148 H 163 H 175 H Lactic Acid Calcium Phosphorus Magnesium AST ALT Lactate Dehydrogenase Total Bilirubin Direct Bilirubin CK-MB (CK-2) C-Reactive Protein NT-Pro-B Natriuret Pep Total Protein Albumin Arterial Blood Glucose Urine WBC (Auto) Urine Creatinine 01/23/20 01/23/20 01/24/20 17:28 23:56 04:30 WBC RBC 3.46 L Hgb 8.8 L Hct 27.8 L MCHC RDW 18.2 H MCV 81 L MCH 25 L Lymph % (Auto) Hood % (Auto) 7.8 H Hood # Eos # Lymph # (Auto) Hood # (Auto) Eos # (Auto) Seg Neutrophils % Seg Neuts % (Manual) Baso # (Auto) Lymphocytes % (Manual) Monocytes % (Manual) Eosinophils % (Manual) Basophils % (Manual) Seg Neutrophils # Seg Neutrophils # Man Lymphocytes # (Manual) Monocytes # (Manual) Eosinophils # (Manual) Nucleated RBC % Basophils # (Manual) PT INR APTT Heparin Anti-Xa Level ABG pH POC ABG pO2 ABG pO2 ABG HCO3 ABG O2 Saturation ABG Base Excess POC ABG pCO2 ABG Hemoglobin ABG Oxyhemoglobin ABG Sodium ABG Chloride ABG Glucose Oxyhemoglobin Sodium Potassium Chloride Carbon Dioxide BUN Creatinine Glucose POC Glucose 165 H 177 H Lactic Acid Calcium Phosphorus Magnesium AST ALT Lactate Dehydrogenase Total Bilirubin Direct Bilirubin CK-MB (CK-2) C-Reactive Protein NT-Pro-B Natriuret Pep Total Protein Albumin Arterial Blood Glucose Urine WBC (Auto) Urine Creatinine 01/24/20 01/24/20 01/24/20 04:30 07:18 12:06 WBC RBC Hgb Hct MCHC RDW MCV MCH Lymph % (Auto) Hood % (Auto) Hood # Eos # Lymph # (Auto) Hood # (Auto) Eos # (Auto) Seg Neutrophils % Seg Neuts % (Manual) Baso # (Auto) Lymphocytes % (Manual) Monocytes % (Manual) Eosinophils % (Manual) Basophils % (Manual) Seg Neutrophils # Seg Neutrophils # Man Lymphocytes # (Manual) Monocytes # (Manual) Eosinophils # (Manual) Nucleated RBC % Basophils # (Manual) PT INR APTT Heparin Anti-Xa Level ABG pH POC ABG pO2 ABG pO2 ABG HCO3 ABG O2 Saturation ABG Base Excess POC ABG pCO2 ABG Hemoglobin ABG Oxyhemoglobin ABG Sodium ABG Chloride ABG Glucose Oxyhemoglobin Sodium Potassium Chloride 97.9 L Carbon Dioxide BUN 31 H Creatinine Glucose 146 H POC Glucose 151 H 133 H Lactic Acid Calcium Phosphorus Magnesium AST ALT Lactate Dehydrogenase Total Bilirubin Direct Bilirubin CK-MB (CK-2) C-Reactive Protein NT-Pro-B Natriuret Pep Total Protein Albumin Arterial Blood Glucose Urine WBC (Auto) Urine Creatinine 01/24/20 01/25/20 01/25/20 17:36 00:08 04:25 WBC RBC 3.50 L Hgb 8.7 L Hct 27.9 L MCHC 31 L RDW 18.2 H MCV 80 L MCH 25 L Lymph % (Auto) Hood % (Auto) 8.5 H Hood # Eos # Lymph # (Auto) Hood # (Auto) Eos # (Auto) Seg Neutrophils % Seg Neuts % (Manual) Baso # (Auto) Lymphocytes % (Manual) Monocytes % (Manual) Eosinophils % (Manual) Basophils % (Manual) Seg Neutrophils # Seg Neutrophils # Man Lymphocytes # (Manual) Monocytes # (Manual) Eosinophils # (Manual) Nucleated RBC % Basophils # (Manual) PT INR APTT Heparin Anti-Xa Level ABG pH POC ABG pO2 ABG pO2 ABG HCO3 ABG O2 Saturation ABG Base Excess POC ABG pCO2 ABG Hemoglobin ABG Oxyhemoglobin ABG Sodium ABG Chloride ABG Glucose Oxyhemoglobin Sodium Potassium Chloride Carbon Dioxide BUN Creatinine Glucose POC Glucose 133 H 129 H Lactic Acid Calcium Phosphorus Magnesium AST ALT Lactate Dehydrogenase Total Bilirubin Direct Bilirubin CK-MB (CK-2) C-Reactive Protein NT-Pro-B Natriuret Pep Total Protein Albumin Arterial Blood Glucose Urine WBC (Auto) Urine Creatinine 01/25/20 01/25/20 01/25/20 04:25 05:38 11:52 WBC RBC Hgb Hct MCHC RDW MCV MCH Lymph % (Auto) Hood % (Auto) Hood # Eos # Lymph # (Auto) Hood # (Auto) Eos # (Auto) Seg Neutrophils % Seg Neuts % (Manual) Baso # (Auto) Lymphocytes % (Manual) Monocytes % (Manual) Eosinophils % (Manual) Basophils % (Manual) Seg Neutrophils # Seg Neutrophils # Man Lymphocytes # (Manual) Monocytes # (Manual) Eosinophils # (Manual) Nucleated RBC % Basophils # (Manual) PT INR APTT Heparin Anti-Xa Level ABG pH POC ABG pO2 ABG pO2 ABG HCO3 ABG O2 Saturation ABG Base Excess POC ABG pCO2 ABG Hemoglobin ABG Oxyhemoglobin ABG Sodium ABG Chloride ABG Glucose Oxyhemoglobin Sodium Potassium Chloride Carbon Dioxide BUN 30 H Creatinine Glucose 134 H POC Glucose 129 H 134 H Lactic Acid Calcium Phosphorus Magnesium AST ALT Lactate Dehydrogenase Total Bilirubin Direct Bilirubin CK-MB (CK-2) C-Reactive Protein NT-Pro-B Natriuret Pep Total Protein Albumin Arterial Blood Glucose Urine WBC (Auto) Urine Creatinine 01/25/20 01/25/20 01/26/20 17:13 21:02 00:59 WBC RBC Hgb Hct MCHC RDW MCV MCH Lymph % (Auto) Hood % (Auto) Hood # Eos # Lymph # (Auto) Hood # (Auto) Eos # (Auto) Seg Neutrophils % Seg Neuts % (Manual) Baso # (Auto) Lymphocytes % (Manual) Monocytes % (Manual) Eosinophils % (Manual) Basophils % (Manual) Seg Neutrophils # Seg Neutrophils # Man Lymphocytes # (Manual) Monocytes # (Manual) Eosinophils # (Manual) Nucleated RBC % Basophils # (Manual) PT INR APTT Heparin Anti-Xa Level ABG pH POC ABG pO2 ABG pO2 57.5 L ABG HCO3 31.7 H ABG O2 Saturation 90.3 L ABG Base Excess 6.6 H POC ABG pCO2 ABG Hemoglobin 13.0 L ABG Oxyhemoglobin ABG Sodium ABG Chloride ABG Glucose Oxyhemoglobin 87.5 L Sodium Potassium Chloride Carbon Dioxide BUN Creatinine Glucose POC Glucose 124 H 196 H Lactic Acid Calcium Phosphorus Magnesium AST ALT Lactate Dehydrogenase Total Bilirubin Direct Bilirubin CK-MB (CK-2) C-Reactive Protein NT-Pro-B Natriuret Pep Total Protein Albumin Arterial Blood Glucose Urine WBC (Auto) Urine Creatinine 01/26/20 01/26/20 01/26/20 03:20 05:46 12:46 WBC RBC Hgb 9.2 L Hct 29.4 L MCHC RDW MCV MCH Lymph % (Auto) Hood % (Auto) Hood # Eos # Lymph # (Auto) Hood # (Auto) Eos # (Auto) Seg Neutrophils % Seg Neuts % (Manual) Baso # (Auto) Lymphocytes % (Manual) Monocytes % (Manual) Eosinophils % (Manual) Basophils % (Manual) Seg Neutrophils # Seg Neutrophils # Man Lymphocytes # (Manual) Monocytes # (Manual) Eosinophils # (Manual) Nucleated RBC % Basophils # (Manual) PT INR APTT Heparin Anti-Xa Level ABG pH POC ABG pO2 ABG pO2 ABG HCO3 ABG O2 Saturation ABG Base Excess POC ABG pCO2 ABG Hemoglobin ABG Oxyhemoglobin ABG Sodium ABG Chloride ABG Glucose Oxyhemoglobin Sodium Potassium Chloride Carbon Dioxide BUN Creatinine Glucose POC Glucose 141 H 122 H Lactic Acid Calcium Phosphorus Magnesium AST ALT Lactate Dehydrogenase Total Bilirubin Direct Bilirubin CK-MB (CK-2) C-Reactive Protein NT-Pro-B Natriuret Pep Total Protein Albumin Arterial Blood Glucose Urine WBC (Auto) Urine Creatinine 01/26/20 01/26/20 01/27/20 18:03 23:55 04:47 WBC RBC Hgb Hct MCHC RDW MCV MCH Lymph % (Auto) Hood % (Auto) Hood # Eos # Lymph # (Auto) Hood # (Auto) Eos # (Auto) Seg Neutrophils % Seg Neuts % (Manual) Baso # (Auto) Lymphocytes % (Manual) Monocytes % (Manual) Eosinophils % (Manual) Basophils % (Manual) Seg Neutrophils # Seg Neutrophils # Man Lymphocytes # (Manual) Monocytes # (Manual) Eosinophils # (Manual) Nucleated RBC % Basophils # (Manual) PT INR APTT Heparin Anti-Xa Level ABG pH POC ABG pO2 ABG pO2 ABG HCO3 ABG O2 Saturation ABG Base Excess POC ABG pCO2 ABG Hemoglobin ABG Oxyhemoglobin ABG Sodium ABG Chloride ABG Glucose Oxyhemoglobin Sodium Potassium Chloride Carbon Dioxide BUN 30 H Creatinine 0.7 L Glucose 135 H POC Glucose 142 H 159 H Lactic Acid Calcium Phosphorus Magnesium AST ALT Lactate Dehydrogenase Total Bilirubin Direct Bilirubin CK-MB (CK-2) C-Reactive Protein NT-Pro-B Natriuret Pep Total Protein Albumin Arterial Blood Glucose Urine WBC (Auto) Urine Creatinine 01/27/20 01/27/20 01/27/20 05:43 12:06 17:16 WBC RBC Hgb Hct MCHC RDW MCV MCH Lymph % (Auto) Hood % (Auto) Hood # Eos # Lymph # (Auto) Hood # (Auto) Eos # (Auto) Seg Neutrophils % Seg Neuts % (Manual) Baso # (Auto) Lymphocytes % (Manual) Monocytes % (Manual) Eosinophils % (Manual) Basophils % (Manual) Seg Neutrophils # Seg Neutrophils # Man Lymphocytes # (Manual) Monocytes # (Manual) Eosinophils # (Manual) Nucleated RBC % Basophils # (Manual) PT INR APTT Heparin Anti-Xa Level ABG pH POC ABG pO2 ABG pO2 ABG HCO3 ABG O2 Saturation ABG Base Excess POC ABG pCO2 ABG Hemoglobin ABG Oxyhemoglobin ABG Sodium ABG Chloride ABG Glucose Oxyhemoglobin Sodium Potassium Chloride Carbon Dioxide BUN Creatinine Glucose POC Glucose 143 H 142 H 128 H Lactic Acid Calcium Phosphorus Magnesium AST ALT Lactate Dehydrogenase Total Bilirubin Direct Bilirubin CK-MB (CK-2) C-Reactive Protein NT-Pro-B Natriuret Pep Total Protein Albumin Arterial Blood Glucose Urine WBC (Auto) Urine Creatinine 01/27/20 01/28/20 01/28/20 23:55 04:37 05:55 WBC RBC Hgb 9.4 L Hct 29.9 L MCHC RDW MCV MCH Lymph % (Auto) Hood % (Auto) Hood # Eos # Lymph # (Auto) Hood # (Auto) Eos # (Auto) Seg Neutrophils % Seg Neuts % (Manual) Baso # (Auto) Lymphocytes % (Manual) Monocytes % (Manual) Eosinophils % (Manual) Basophils % (Manual) Seg Neutrophils # Seg Neutrophils # Man Lymphocytes # (Manual) Monocytes # (Manual) Eosinophils # (Manual) Nucleated RBC % Basophils # (Manual) PT INR APTT Heparin Anti-Xa Level ABG pH POC ABG pO2 ABG pO2 ABG HCO3 ABG O2 Saturation ABG Base Excess POC ABG pCO2 ABG Hemoglobin ABG Oxyhemoglobin ABG Sodium ABG Chloride ABG Glucose Oxyhemoglobin Sodium Potassium Chloride Carbon Dioxide BUN Creatinine Glucose POC Glucose 166 H 169 H Lactic Acid Calcium Phosphorus Magnesium AST ALT Lactate Dehydrogenase Total Bilirubin Direct Bilirubin CK-MB (CK-2) C-Reactive Protein NT-Pro-B Natriuret Pep Total Protein Albumin Arterial Blood Glucose Urine WBC (Auto) Urine Creatinine 01/28/20 01/28/20 01/28/20 11:58 17:26 23:46 WBC RBC Hgb Hct MCHC RDW MCV MCH Lymph % (Auto) Hood % (Auto) Hood # Eos # Lymph # (Auto) Hood # (Auto) Eos # (Auto) Seg Neutrophils % Seg Neuts % (Manual) Baso # (Auto) Lymphocytes % (Manual) Monocytes % (Manual) Eosinophils % (Manual) Basophils % (Manual) Seg Neutrophils # Seg Neutrophils # Man Lymphocytes # (Manual) Monocytes # (Manual) Eosinophils # (Manual) Nucleated RBC % Basophils # (Manual) PT INR APTT Heparin Anti-Xa Level ABG pH POC ABG pO2 ABG pO2 ABG HCO3 ABG O2 Saturation ABG Base Excess POC ABG pCO2 ABG Hemoglobin ABG Oxyhemoglobin ABG Sodium ABG Chloride ABG Glucose Oxyhemoglobin Sodium Potassium Chloride Carbon Dioxide BUN Creatinine Glucose POC Glucose 130 H 126 H 150 H Lactic Acid Calcium Phosphorus Magnesium AST ALT Lactate Dehydrogenase Total Bilirubin Direct Bilirubin CK-MB (CK-2) C-Reactive Protein NT-Pro-B Natriuret Pep Total Protein Albumin Arterial Blood Glucose Urine WBC (Auto) Urine Creatinine 01/29/20 01/29/20 01/29/20 04:55 06:00 12:28 WBC RBC Hgb Hct MCHC RDW MCV MCH Lymph % (Auto) Hood % (Auto) Hood # Eos # Lymph # (Auto) Hood # (Auto) Eos # (Auto) Seg Neutrophils % Seg Neuts % (Manual) Baso # (Auto) Lymphocytes % (Manual) Monocytes % (Manual) Eosinophils % (Manual) Basophils % (Manual) Seg Neutrophils # Seg Neutrophils # Man Lymphocytes # (Manual) Monocytes # (Manual) Eosinophils # (Manual) Nucleated RBC % Basophils # (Manual) PT INR APTT Heparin Anti-Xa Level ABG pH POC ABG pO2 ABG pO2 ABG HCO3 ABG O2 Saturation ABG Base Excess POC ABG pCO2 ABG Hemoglobin ABG Oxyhemoglobin ABG Sodium ABG Chloride ABG Glucose Oxyhemoglobin Sodium Potassium Chloride Carbon Dioxide 34 H BUN Creatinine 0.6 L Glucose 152 H POC Glucose 157 H 156 H Lactic Acid Calcium Phosphorus Magnesium AST ALT Lactate Dehydrogenase Total Bilirubin Direct Bilirubin CK-MB (CK-2) C-Reactive Protein NT-Pro-B Natriuret Pep Total Protein Albumin Arterial Blood Glucose Urine WBC (Auto) Urine Creatinine 01/29/20 01/30/20 01/30/20 19:06 00:29 05:39 WBC RBC Hgb Hct MCHC RDW MCV MCH Lymph % (Auto) Hood % (Auto) Hood # Eos # Lymph # (Auto) Hood # (Auto) Eos # (Auto) Seg Neutrophils % Seg Neuts % (Manual) Baso # (Auto) Lymphocytes % (Manual) Monocytes % (Manual) Eosinophils % (Manual) Basophils % (Manual) Seg Neutrophils # Seg Neutrophils # Man Lymphocytes # (Manual) Monocytes # (Manual) Eosinophils # (Manual) Nucleated RBC % Basophils # (Manual) PT INR APTT Heparin Anti-Xa Level ABG pH POC ABG pO2 ABG pO2 ABG HCO3 ABG O2 Saturation ABG Base Excess POC ABG pCO2 ABG Hemoglobin ABG Oxyhemoglobin ABG Sodium ABG Chloride ABG Glucose Oxyhemoglobin Sodium Potassium Chloride Carbon Dioxide BUN Creatinine Glucose POC Glucose 152 H 132 H 159 H Lactic Acid Calcium Phosphorus Magnesium AST ALT Lactate Dehydrogenase Total Bilirubin Direct Bilirubin CK-MB (CK-2) C-Reactive Protein NT-Pro-B Natriuret Pep Total Protein Albumin Arterial Blood Glucose Urine WBC (Auto) Urine Creatinine 01/30/20 01/30/20 01/30/20 12:27 17:42 23:28 WBC RBC Hgb Hct MCHC RDW MCV MCH Lymph % (Auto) Hood % (Auto) Hood # Eos # Lymph # (Auto) Hood # (Auto) Eos # (Auto) Seg Neutrophils % Seg Neuts % (Manual) Baso # (Auto) Lymphocytes % (Manual) Monocytes % (Manual) Eosinophils % (Manual) Basophils % (Manual) Seg Neutrophils # Seg Neutrophils # Man Lymphocytes # (Manual) Monocytes # (Manual) Eosinophils # (Manual) Nucleated RBC % Basophils # (Manual) PT INR APTT Heparin Anti-Xa Level ABG pH POC ABG pO2 ABG pO2 ABG HCO3 ABG O2 Saturation ABG Base Excess POC ABG pCO2 ABG Hemoglobin ABG Oxyhemoglobin ABG Sodium ABG Chloride ABG Glucose Oxyhemoglobin Sodium Potassium Chloride Carbon Dioxide BUN Creatinine Glucose POC Glucose 151 H 144 H 164 H Lactic Acid Calcium Phosphorus Magnesium AST ALT Lactate Dehydrogenase Total Bilirubin Direct Bilirubin CK-MB (CK-2) C-Reactive Protein NT-Pro-B Natriuret Pep Total Protein Albumin Arterial Blood Glucose Urine WBC (Auto) Urine Creatinine 01/31/20 01/31/20 01/31/20 05:51 11:51 18:06 WBC RBC Hgb Hct MCHC RDW MCV MCH Lymph % (Auto) Hood % (Auto) Hood # Eos # Lymph # (Auto) Hood # (Auto) Eos # (Auto) Seg Neutrophils % Seg Neuts % (Manual) Baso # (Auto) Lymphocytes % (Manual) Monocytes % (Manual) Eosinophils % (Manual) Basophils % (Manual) Seg Neutrophils # Seg Neutrophils # Man Lymphocytes # (Manual) Monocytes # (Manual) Eosinophils # (Manual) Nucleated RBC % Basophils # (Manual) PT INR APTT Heparin Anti-Xa Level ABG pH POC ABG pO2 ABG pO2 ABG HCO3 ABG O2 Saturation ABG Base Excess POC ABG pCO2 ABG Hemoglobin ABG Oxyhemoglobin ABG Sodium ABG Chloride ABG Glucose Oxyhemoglobin Sodium Potassium Chloride Carbon Dioxide BUN Creatinine Glucose POC Glucose 131 H 167 H 210 H Lactic Acid Calcium Phosphorus Magnesium AST ALT Lactate Dehydrogenase Total Bilirubin Direct Bilirubin CK-MB (CK-2) C-Reactive Protein NT-Pro-B Natriuret Pep Total Protein Albumin Arterial Blood Glucose Urine WBC (Auto) Urine Creatinine 01/31/20 01/31/20 02/01/20 19:24 Unknown 00:34 WBC RBC Hgb Hct MCHC RDW MCV MCH Lymph % (Auto) Hood % (Auto) Hood # Eos # Lymph # (Auto) Hood # (Auto) Eos # (Auto) Seg Neutrophils % Seg Neuts % (Manual) Baso # (Auto) Lymphocytes % (Manual) Monocytes % (Manual) Eosinophils % (Manual) Basophils % (Manual) Seg Neutrophils # Seg Neutrophils # Man Lymphocytes # (Manual) Monocytes # (Manual) Eosinophils # (Manual) Nucleated RBC % Basophils # (Manual) PT INR APTT Heparin Anti-Xa Level ABG pH POC ABG pO2 ABG pO2 ABG HCO3 ABG O2 Saturation ABG Base Excess POC ABG pCO2 ABG Hemoglobin ABG Oxyhemoglobin ABG Sodium ABG Chloride ABG Glucose Oxyhemoglobin Sodium Potassium Chloride 95.3 L Carbon Dioxide 33 H BUN 36 H Creatinine Glucose 187 H POC Glucose 116 H Lactic Acid Calcium Phosphorus Magnesium AST ALT Lactate Dehydrogenase Total Bilirubin Direct Bilirubin CK-MB (CK-2) C-Reactive Protein NT-Pro-B Natriuret Pep Total Protein Albumin Arterial Blood Glucose Urine WBC (Auto) Urine Creatinine 57.4 H 02/01/20 02/01/20 02/01/20 05:24 10:40 12:29 WBC RBC Hgb Hct MCHC RDW MCV MCH Lymph % (Auto) Hood % (Auto) Hood # Eos # Lymph # (Auto) Hood # (Auto) Eos # (Auto) Seg Neutrophils % Seg Neuts % (Manual) Baso # (Auto) Lymphocytes % (Manual) Monocytes % (Manual) Eosinophils % (Manual) Basophils % (Manual) Seg Neutrophils # Seg Neutrophils # Man Lymphocytes # (Manual) Monocytes # (Manual) Eosinophils # (Manual) Nucleated RBC % Basophils # (Manual) PT INR APTT Heparin Anti-Xa Level ABG pH POC ABG pO2 ABG pO2 ABG HCO3 ABG O2 Saturation ABG Base Excess POC ABG pCO2 ABG Hemoglobin ABG Oxyhemoglobin ABG Sodium ABG Chloride ABG Glucose Oxyhemoglobin Sodium Potassium Chloride Carbon Dioxide BUN Creatinine Glucose POC Glucose 142 H 165 H 151 H Lactic Acid Calcium Phosphorus Magnesium AST ALT Lactate Dehydrogenase Total Bilirubin Direct Bilirubin CK-MB (CK-2) C-Reactive Protein NT-Pro-B Natriuret Pep Total Protein Albumin Arterial Blood Glucose Urine WBC (Auto) Urine Creatinine 02/01/20 02/01/20 02/02/20 17:16 23:23 06:36 WBC RBC Hgb Hct MCHC RDW MCV MCH Lymph % (Auto) Hood % (Auto) Hood # Eos # Lymph # (Auto) Hood # (Auto) Eos # (Auto) Seg Neutrophils % Seg Neuts % (Manual) Baso # (Auto) Lymphocytes % (Manual) Monocytes % (Manual) Eosinophils % (Manual) Basophils % (Manual) Seg Neutrophils # Seg Neutrophils # Man Lymphocytes # (Manual) Monocytes # (Manual) Eosinophils # (Manual) Nucleated RBC % Basophils # (Manual) PT INR APTT Heparin Anti-Xa Level ABG pH POC ABG pO2 ABG pO2 ABG HCO3 ABG O2 Saturation ABG Base Excess POC ABG pCO2 ABG Hemoglobin ABG Oxyhemoglobin ABG Sodium ABG Chloride ABG Glucose Oxyhemoglobin Sodium Potassium Chloride Carbon Dioxide BUN Creatinine Glucose POC Glucose 137 H 145 H 181 H Lactic Acid Calcium Phosphorus Magnesium AST ALT Lactate Dehydrogenase Total Bilirubin Direct Bilirubin CK-MB (CK-2) C-Reactive Protein NT-Pro-B Natriuret Pep Total Protein Albumin Arterial Blood Glucose Urine WBC (Auto) Urine Creatinine 02/02/20 02/02/20 02/02/20 10:01 12:05 17:54 WBC RBC Hgb Hct MCHC RDW MCV MCH Lymph % (Auto) Hood % (Auto) Hood # Eos # Lymph # (Auto) Hood # (Auto) Eos # (Auto) Seg Neutrophils % Seg Neuts % (Manual) Baso # (Auto) Lymphocytes % (Manual) Monocytes % (Manual) Eosinophils % (Manual) Basophils % (Manual) Seg Neutrophils # Seg Neutrophils # Man Lymphocytes # (Manual) Monocytes # (Manual) Eosinophils # (Manual) Nucleated RBC % Basophils # (Manual) PT INR APTT Heparin Anti-Xa Level ABG pH POC ABG pO2 ABG pO2 ABG HCO3 ABG O2 Saturation ABG Base Excess POC ABG pCO2 ABG Hemoglobin ABG Oxyhemoglobin ABG Sodium ABG Chloride ABG Glucose Oxyhemoglobin Sodium Potassium Chloride 95.3 L Carbon Dioxide BUN 44 H Creatinine Glucose 234 H POC Glucose 184 H 127 H Lactic Acid Calcium Phosphorus Magnesium AST 363 H ALT 457 H Lactate Dehydrogenase Total Bilirubin Direct Bilirubin CK-MB (CK-2) C-Reactive Protein NT-Pro-B Natriuret Pep Total Protein Albumin 3.0 L Arterial Blood Glucose Urine WBC (Auto) Urine Creatinine 02/02/20 02/03/20 02/03/20 23:47 05:32 07:04 WBC 13.0 H RBC Hgb 9.5 L Hct 30.8 L MCHC 31 L RDW 19.6 H MCV 81 L MCH 25 L Lymph % (Auto) Hood % (Auto) 9.4 H Hood # Eos # Lymph # (Auto) Hood # (Auto) 1.2 H Eos # (Auto) Seg Neutrophils % 72.3 H Seg Neuts % (Manual) Baso # (Auto) Lymphocytes % (Manual) Monocytes % (Manual) Eosinophils % (Manual) Basophils % (Manual) Seg Neutrophils # 9.4 H Seg Neutrophils # Man Lymphocytes # (Manual) Monocytes # (Manual) Eosinophils # (Manual) Nucleated RBC % Basophils # (Manual) PT INR APTT Heparin Anti-Xa Level ABG pH POC ABG pO2 ABG pO2 ABG HCO3 ABG O2 Saturation ABG Base Excess POC ABG pCO2 ABG Hemoglobin ABG Oxyhemoglobin ABG Sodium ABG Chloride ABG Glucose Oxyhemoglobin Sodium Potassium Chloride Carbon Dioxide BUN Creatinine Glucose POC Glucose 124 H 129 H Lactic Acid Calcium Phosphorus Magnesium AST ALT Lactate Dehydrogenase Total Bilirubin Direct Bilirubin CK-MB (CK-2) C-Reactive Protein NT-Pro-B Natriuret Pep Total Protein Albumin Arterial Blood Glucose Urine WBC (Auto) Urine Creatinine 02/03/20 02/03/20 02/03/20 07:04 11:32 12:49 WBC RBC Hgb Hct MCHC RDW MCV MCH Lymph % (Auto) Hood % (Auto) Hood # Eos # Lymph # (Auto) Hood # (Auto) Eos # (Auto) Seg Neutrophils % Seg Neuts % (Manual) Baso # (Auto) Lymphocytes % (Manual) Monocytes % (Manual) Eosinophils % (Manual) Basophils % (Manual) Seg Neutrophils # Seg Neutrophils # Man Lymphocytes # (Manual) Monocytes # (Manual) Eosinophils # (Manual) Nucleated RBC % Basophils # (Manual) PT INR APTT Heparin Anti-Xa Level ABG pH POC ABG pO2 ABG pO2 ABG HCO3 ABG O2 Saturation ABG Base Excess POC ABG pCO2 ABG Hemoglobin ABG Oxyhemoglobin ABG Sodium ABG Chloride ABG Glucose Oxyhemoglobin Sodium Potassium Chloride 97.9 L Carbon Dioxide 33 H BUN 39 H Creatinine Glucose 119 H POC Glucose 138 H Lactic Acid Calcium Phosphorus Magnesium 2.60 H AST ALT Lactate Dehydrogenase Total Bilirubin Direct Bilirubin CK-MB (CK-2) C-Reactive Protein NT-Pro-B Natriuret Pep Total Protein Albumin Arterial Blood Glucose Urine WBC (Auto) Urine Creatinine 02/03/20 02/04/20 02/04/20 18:28 16:24 16:24 WBC RBC 3.38 L Hgb 8.6 L Hct 26.9 L MCHC RDW 19.5 H MCV 80 L MCH 26 L Lymph % (Auto) Hood % (Auto) Hood # Eos # Lymph # (Auto) Hood # (Auto) Eos # (Auto) Seg Neutrophils % Seg Neuts % (Manual) Baso # (Auto) Lymphocytes % (Manual) Monocytes % (Manual) Eosinophils % (Manual) Basophils % (Manual) Seg Neutrophils # Seg Neutrophils # Man Lymphocytes # (Manual) Monocytes # (Manual) Eosinophils # (Manual) Nucleated RBC % Basophils # (Manual) PT INR APTT Heparin Anti-Xa Level ABG pH POC ABG pO2 ABG pO2 ABG HCO3 ABG O2 Saturation ABG Base Excess POC ABG pCO2 ABG Hemoglobin ABG Oxyhemoglobin ABG Sodium ABG Chloride ABG Glucose Oxyhemoglobin Sodium Potassium 3.4 L Chloride Carbon Dioxide 31 H BUN 37 H Creatinine Glucose 70 L POC Glucose 118 H Lactic Acid Calcium Phosphorus Magnesium AST 169 H ALT 394 H Lactate Dehydrogenase Total Bilirubin 1.50 H Direct Bilirubin CK-MB (CK-2) C-Reactive Protein NT-Pro-B Natriuret Pep Total Protein Albumin 2.9 L Arterial Blood Glucose Urine WBC (Auto) Urine Creatinine 02/05/20 02/05/20 02/05/20 00:41 06:37 17:14 WBC RBC Hgb Hct MCHC RDW MCV MCH Lymph % (Auto) Hood % (Auto) Hood # Eos # Lymph # (Auto) Hood # (Auto) Eos # (Auto) Seg Neutrophils % Seg Neuts % (Manual) Baso # (Auto) Lymphocytes % (Manual) Monocytes % (Manual) Eosinophils % (Manual) Basophils % (Manual) Seg Neutrophils # Seg Neutrophils # Man Lymphocytes # (Manual) Monocytes # (Manual) Eosinophils # (Manual) Nucleated RBC % Basophils # (Manual) PT INR APTT Heparin Anti-Xa Level ABG pH POC ABG pO2 ABG pO2 ABG HCO3 ABG O2 Saturation ABG Base Excess POC ABG pCO2 ABG Hemoglobin ABG Oxyhemoglobin ABG Sodium ABG Chloride ABG Glucose Oxyhemoglobin Sodium Potassium 3.1 L Chloride Carbon Dioxide 35 H BUN 32 H Creatinine 0.7 L Glucose POC Glucose 69 L 127 H Lactic Acid Calcium Phosphorus Magnesium AST 134 H ALT 352 H Lactate Dehydrogenase Total Bilirubin 1.60 H Direct Bilirubin CK-MB (CK-2) C-Reactive Protein NT-Pro-B Natriuret Pep Total Protein Albumin 2.9 L Arterial Blood Glucose Urine WBC (Auto) Urine Creatinine 02/05/20 02/06/20 02/06/20 23:43 05:32 08:01 WBC RBC Hgb Hct MCHC RDW MCV MCH Lymph % (Auto) Hood % (Auto) Hood # Eos # Lymph # (Auto) Hood # (Auto) Eos # (Auto) Seg Neutrophils % Seg Neuts % (Manual) Baso # (Auto) Lymphocytes % (Manual) Monocytes % (Manual) Eosinophils % (Manual) Basophils % (Manual) Seg Neutrophils # Seg Neutrophils # Man Lymphocytes # (Manual) Monocytes # (Manual) Eosinophils # (Manual) Nucleated RBC % Basophils # (Manual) PT INR APTT Heparin Anti-Xa Level ABG pH POC ABG pO2 ABG pO2 ABG HCO3 ABG O2 Saturation ABG Base Excess POC ABG pCO2 ABG Hemoglobin ABG Oxyhemoglobin ABG Sodium ABG Chloride ABG Glucose Oxyhemoglobin Sodium Potassium Chloride Carbon Dioxide BUN 40 H Creatinine Glucose 132 H POC Glucose 129 H 131 H Lactic Acid Calcium Phosphorus Magnesium AST ALT Lactate Dehydrogenase Total Bilirubin Direct Bilirubin CK-MB (CK-2) C-Reactive Protein NT-Pro-B Natriuret Pep Total Protein Albumin Arterial Blood Glucose Urine WBC (Auto) Urine Creatinine 02/06/20 02/06/20 02/06/20 11:51 16:28 17:32 WBC RBC Hgb Hct MCHC RDW MCV MCH Lymph % (Auto) Hood % (Auto) Hood # Eos # Lymph # (Auto) Hood # (Auto) Eos # (Auto) Seg Neutrophils % Seg Neuts % (Manual) Baso # (Auto) Lymphocytes % (Manual) Monocytes % (Manual) Eosinophils % (Manual) Basophils % (Manual) Seg Neutrophils # Seg Neutrophils # Man Lymphocytes # (Manual) Monocytes # (Manual) Eosinophils # (Manual) Nucleated RBC % Basophils # (Manual) PT INR APTT Heparin Anti-Xa Level ABG pH POC ABG pO2 ABG pO2 ABG HCO3 ABG O2 Saturation ABG Base Excess POC ABG pCO2 ABG Hemoglobin ABG Oxyhemoglobin ABG Sodium ABG Chloride ABG Glucose Oxyhemoglobin Sodium Potassium Chloride Carbon Dioxide BUN Creatinine Glucose POC Glucose 167 H 129 H Lactic Acid Calcium Phosphorus Magnesium AST 824 H ALT 948 H Lactate Dehydrogenase Total Bilirubin 1.70 H Direct Bilirubin 1.2 H CK-MB (CK-2) C-Reactive Protein NT-Pro-B Natriuret Pep Total Protein Albumin 2.9 L Arterial Blood Glucose Urine WBC (Auto) Urine Creatinine 02/07/20 02/07/20 02/07/20 00:11 04:57 04:57 WBC RBC Hgb 9.2 L Hct 29.7 L MCHC 31 L RDW 20.2 H MCV 80 L MCH 25 L Lymph % (Auto) Hood % (Auto) Hood # Eos # Lymph # (Auto) Hood # (Auto) Eos # (Auto) Seg Neutrophils % Seg Neuts % (Manual) Baso # (Auto) Lymphocytes % (Manual) Monocytes % (Manual) Eosinophils % (Manual) Basophils % (Manual) Seg Neutrophils # Seg Neutrophils # Man Lymphocytes # (Manual) Monocytes # (Manual) Eosinophils # (Manual) Nucleated RBC % Basophils # (Manual) PT INR APTT Heparin Anti-Xa Level ABG pH POC ABG pO2 ABG pO2 ABG HCO3 ABG O2 Saturation ABG Base Excess POC ABG pCO2 ABG Hemoglobin ABG Oxyhemoglobin ABG Sodium ABG Chloride ABG Glucose Oxyhemoglobin Sodium Potassium 3.4 L D Chloride Carbon Dioxide 32 H BUN 39 H Creatinine Glucose 106 H POC Glucose 121 H Lactic Acid Calcium Phosphorus Magnesium AST ALT Lactate Dehydrogenase Total Bilirubin Direct Bilirubin CK-MB (CK-2) C-Reactive Protein NT-Pro-B Natriuret Pep Total Protein Albumin Arterial Blood Glucose Urine WBC (Auto) Urine Creatinine 02/07/20 02/07/20 02/07/20 15:03 15:03 17:11 WBC RBC Hgb Hct MCHC RDW MCV MCH Lymph % (Auto) Hood % (Auto) Hood # Eos # Lymph # (Auto) Hood # (Auto) Eos # (Auto) Seg Neutrophils % Seg Neuts % (Manual) Baso # (Auto) Lymphocytes % (Manual) Monocytes % (Manual) Eosinophils % (Manual) Basophils % (Manual) Seg Neutrophils # Seg Neutrophils # Man Lymphocytes # (Manual) Monocytes # (Manual) Eosinophils # (Manual) Nucleated RBC % Basophils # (Manual) PT 27.0 H INR 2.46 H APTT Heparin Anti-Xa Level ABG pH POC ABG pO2 ABG pO2 ABG HCO3 ABG O2 Saturation ABG Base Excess POC ABG pCO2 ABG Hemoglobin ABG Oxyhemoglobin ABG Sodium ABG Chloride ABG Glucose Oxyhemoglobin Sodium Potassium Chloride Carbon Dioxide BUN Creatinine Glucose POC Glucose 109 H Lactic Acid Calcium Phosphorus Magnesium AST 424 H ALT 796 H Lactate Dehydrogenase Total Bilirubin 1.60 H Direct Bilirubin 1.2 H CK-MB (CK-2) C-Reactive Protein NT-Pro-B Natriuret Pep Total Protein Albumin 2.9 L Arterial Blood Glucose Urine WBC (Auto) Urine Creatinine 02/08/20 02/08/20 02/08/20 12:14 17:44 19:00 WBC RBC Hgb Hct MCHC RDW MCV MCH Lymph % (Auto) Hood % (Auto) Hood # Eos # Lymph # (Auto) Hood # (Auto) Eos # (Auto) Seg Neutrophils % Seg Neuts % (Manual) Baso # (Auto) Lymphocytes % (Manual) Monocytes % (Manual) Eosinophils % (Manual) Basophils % (Manual) Seg Neutrophils # Seg Neutrophils # Man Lymphocytes # (Manual) Monocytes # (Manual) Eosinophils # (Manual) Nucleated RBC % Basophils # (Manual) PT INR APTT Heparin Anti-Xa Level ABG pH POC ABG pO2 ABG pO2 ABG HCO3 ABG O2 Saturation ABG Base Excess POC ABG pCO2 ABG Hemoglobin ABG Oxyhemoglobin ABG Sodium ABG Chloride ABG Glucose Oxyhemoglobin Sodium Potassium Chloride Carbon Dioxide BUN Creatinine Glucose POC Glucose 111 H 107 H Lactic Acid Calcium Phosphorus Magnesium AST 309 H ALT 650 H Lactate Dehydrogenase Total Bilirubin 1.30 H Direct Bilirubin 0.9 H CK-MB (CK-2) C-Reactive Protein NT-Pro-B Natriuret Pep Total Protein 6.2 L Albumin 2.7 L Arterial Blood Glucose Urine WBC (Auto) Urine Creatinine 02/09/20 02/09/20 02/09/20 05:41 12:28 18:07 WBC RBC Hgb Hct MCHC RDW MCV MCH Lymph % (Auto) Hood % (Auto) Hood # Eos # Lymph # (Auto) Hood # (Auto) Eos # (Auto) Seg Neutrophils % Seg Neuts % (Manual) Baso # (Auto) Lymphocytes % (Manual) Monocytes % (Manual) Eosinophils % (Manual) Basophils % (Manual) Seg Neutrophils # Seg Neutrophils # Man Lymphocytes # (Manual) Monocytes # (Manual) Eosinophils # (Manual) Nucleated RBC % Basophils # (Manual) PT INR APTT Heparin Anti-Xa Level ABG pH POC ABG pO2 ABG pO2 ABG HCO3 ABG O2 Saturation ABG Base Excess POC ABG pCO2 ABG Hemoglobin ABG Oxyhemoglobin ABG Sodium ABG Chloride ABG Glucose Oxyhemoglobin Sodium Potassium Chloride Carbon Dioxide BUN Creatinine Glucose POC Glucose 113 H 140 H 143 H Lactic Acid Calcium Phosphorus Magnesium AST ALT Lactate Dehydrogenase Total Bilirubin Direct Bilirubin CK-MB (CK-2) C-Reactive Protein NT-Pro-B Natriuret Pep Total Protein Albumin Arterial Blood Glucose Urine WBC (Auto) Urine Creatinine 02/09/20 02/09/20 02/10/20 21:40 23:45 06:00 WBC RBC Hgb Hct MCHC RDW MCV MCH Lymph % (Auto) Hood % (Auto) Hood # Eos # Lymph # (Auto) Hood # (Auto) Eos # (Auto) Seg Neutrophils % Seg Neuts % (Manual) Baso # (Auto) Lymphocytes % (Manual) Monocytes % (Manual) Eosinophils % (Manual) Basophils % (Manual) Seg Neutrophils # Seg Neutrophils # Man Lymphocytes # (Manual) Monocytes # (Manual) Eosinophils # (Manual) Nucleated RBC % Basophils # (Manual) PT INR APTT Heparin Anti-Xa Level ABG pH POC ABG pO2 ABG pO2 59.8 L ABG HCO3 33.3 H ABG O2 Saturation 88.9 L ABG Base Excess 7.4 H POC ABG pCO2 ABG Hemoglobin 10.4 L ABG Oxyhemoglobin ABG Sodium ABG Chloride ABG Glucose Oxyhemoglobin 86.3 L Sodium Potassium Chloride Carbon Dioxide BUN Creatinine Glucose POC Glucose 127 H 114 H Lactic Acid Calcium Phosphorus Magnesium AST ALT Lactate Dehydrogenase Total Bilirubin Direct Bilirubin CK-MB (CK-2) C-Reactive Protein NT-Pro-B Natriuret Pep Total Protein Albumin Arterial Blood Glucose Urine WBC (Auto) Urine Creatinine 02/10/20 02/10/20 02/10/20 07:40 07:40 13:38 WBC 11.5 H RBC Hgb 10.6 L Hct 34.7 L MCHC 31 L RDW 19.8 H MCV 79 L MCH 24 L Lymph % (Auto) Hood % (Auto) 9.2 H Hood # Eos # Lymph # (Auto) Hood # (Auto) 1.1 H Eos # (Auto) Seg Neutrophils % Seg Neuts % (Manual) Baso # (Auto) Lymphocytes % (Manual) Monocytes % (Manual) Eosinophils % (Manual) Basophils % (Manual) Seg Neutrophils # Seg Neutrophils # Man Lymphocytes # (Manual) Monocytes # (Manual) Eosinophils # (Manual) Nucleated RBC % Basophils # (Manual) PT INR APTT Heparin Anti-Xa Level ABG pH POC ABG pO2 ABG pO2 ABG HCO3 ABG O2 Saturation ABG Base Excess POC ABG pCO2 ABG Hemoglobin ABG Oxyhemoglobin ABG Sodium ABG Chloride ABG Glucose Oxyhemoglobin Sodium 151 H Potassium Chloride 107.2 H Carbon Dioxide 36 H BUN 25 H Creatinine 0.7 L Glucose 114 H POC Glucose 116 H Lactic Acid Calcium Phosphorus Magnesium 2.40 H AST ALT Lactate Dehydrogenase Total Bilirubin Direct Bilirubin CK-MB (CK-2) C-Reactive Protein NT-Pro-B Natriuret Pep Total Protein Albumin Arterial Blood Glucose Urine WBC (Auto) Urine Creatinine 02/10/20 02/11/20 02/11/20 17:44 05:47 12:21 WBC RBC Hgb Hct MCHC RDW MCV MCH Lymph % (Auto) Hood % (Auto) Hood # Eos # Lymph # (Auto) Hood # (Auto) Eos # (Auto) Seg Neutrophils % Seg Neuts % (Manual) Baso # (Auto) Lymphocytes % (Manual) Monocytes % (Manual) Eosinophils % (Manual) Basophils % (Manual) Seg Neutrophils # Seg Neutrophils # Man Lymphocytes # (Manual) Monocytes # (Manual) Eosinophils # (Manual) Nucleated RBC % Basophils # (Manual) PT INR APTT Heparin Anti-Xa Level ABG pH POC ABG pO2 ABG pO2 ABG HCO3 ABG O2 Saturation ABG Base Excess POC ABG pCO2 ABG Hemoglobin ABG Oxyhemoglobin ABG Sodium ABG Chloride ABG Glucose Oxyhemoglobin Sodium Potassium Chloride Carbon Dioxide BUN Creatinine Glucose POC Glucose 139 H 173 H 143 H Lactic Acid Calcium Phosphorus Magnesium AST ALT Lactate Dehydrogenase Total Bilirubin Direct Bilirubin CK-MB (CK-2) C-Reactive Protein NT-Pro-B Natriuret Pep Total Protein Albumin Arterial Blood Glucose Urine WBC (Auto) Urine Creatinine 02/11/20 02/11/2002/11/20 13:43 14:11 00:15 WBC RBC Hgb Hct MCHC RDW MCV MCH Lymph % (Auto) Hood % (Auto) Hood # Eos # Lymph # (Auto) Hood # (Auto) Eos # (Auto) Seg Neutrophils % Seg Neuts % (Manual) Baso # (Auto) Lymphocytes % (Manual) Monocytes % (Manual) Eosinophils % (Manual) Basophils % (Manual) Seg Neutrophils # Seg Neutrophils # Man Lymphocytes # (Manual) Monocytes # (Manual) Eosinophils # (Manual) Nucleated RBC % Basophils # (Manual) PT INR APTT Heparin Anti-Xa Level ABG pH 7.502 H POC ABG pO2 77.7 L ABG pO2 ABG HCO3 ABG O2 Saturation ABG Base Excess POC ABG pCO2 ABG Hemoglobin 11.1 L ABG Oxyhemoglobin ABG Sodium ABG Chloride 108.0 H ABG Glucose 151 H Oxyhemoglobin Sodium Potassium Chloride Carbon Dioxide BUN Creatinine Glucose POC Glucose 130 H 125 H Lactic Acid Calcium Phosphorus Magnesium AST ALT Lactate Dehydrogenase Total Bilirubin Direct Bilirubin CK-MB (CK-2) C-Reactive Protein NT-Pro-B Natriuret Pep Total Protein Albumin Arterial Blood Glucose 151 H Urine WBC (Auto) Urine Creatinine 02/12/20 02/12/20 02/12/20 04:56 04:56 17:42 WBC RBC Hgb 9.9 L Hct 31.8 L MCHC 31 L RDW 19.4 H MCV 79 L MCH 25 L Lymph % (Auto) Hood % (Auto) 10.3 H Hood # Eos # Lymph # (Auto) Hood # (Auto) 1.0 H Eos # (Auto) Seg Neutrophils % Seg Neuts % (Manual) Baso # (Auto) Lymphocytes % (Manual) Monocytes % (Manual) Eosinophils % (Manual) Basophils % (Manual) Seg Neutrophils # Seg Neutrophils # Man Lymphocytes # (Manual) Monocytes # (Manual) Eosinophils # (Manual) Nucleated RBC % Basophils # (Manual) PT INR APTT Heparin Anti-Xa Level ABG pH POC ABG pO2 ABG pO2 ABG HCO3 ABG O2 Saturation ABG Base Excess POC ABG pCO2 ABG Hemoglobin ABG Oxyhemoglobin ABG Sodium ABG Chloride ABG Glucose Oxyhemoglobin Sodium 149 H Potassium Chloride 108.6 H Carbon Dioxide BUN 28 H Creatinine 0.7 L Glucose 108 H POC Glucose 113 H Lactic Acid Calcium Phosphorus Magnesium AST ALT Lactate Dehydrogenase Total Bilirubin Direct Bilirubin CK-MB (CK-2) C-Reactive Protein NT-Pro-B Natriuret Pep Total Protein Albumin Arterial Blood Glucose Urine WBC (Auto) Urine Creatinine 02/13/20 02/13/20 02/13/20 00:39 05:36 12:25 WBC RBC Hgb Hct MCHC RDW MCV MCH Lymph % (Auto) Hood % (Auto) Hood # Eos # Lymph # (Auto) Hood # (Auto) Eos # (Auto) Seg Neutrophils % Seg Neuts % (Manual) Baso # (Auto) Lymphocytes % (Manual) Monocytes % (Manual) Eosinophils % (Manual) Basophils % (Manual) Seg Neutrophils # Seg Neutrophils # Man Lymphocytes # (Manual) Monocytes # (Manual) Eosinophils # (Manual) Nucleated RBC % Basophils # (Manual) PT INR APTT Heparin Anti-Xa Level ABG pH POC ABG pO2 ABG pO2 ABG HCO3 ABG O2 Saturation ABG Base Excess POC ABG pCO2 ABG Hemoglobin ABG Oxyhemoglobin ABG Sodium ABG Chloride ABG Glucose Oxyhemoglobin Sodium Potassium Chloride Carbon Dioxide BUN Creatinine Glucose POC Glucose 129 H 126 H 129 H Lactic Acid Calcium Phosphorus Magnesium AST ALT Lactate Dehydrogenase Total Bilirubin Direct Bilirubin CK-MB (CK-2) C-Reactive Protein NT-Pro-B Natriuret Pep Total Protein Albumin Arterial Blood Glucose Urine WBC (Auto) Urine Creatinine 02/13/20 02/14/20 02/14/20 17:59 00:15 05:41 WBC RBC Hgb Hct MCHC RDW MCV MCH Lymph % (Auto) Hood % (Auto) Hood # Eos # Lymph # (Auto) Hood # (Auto) Eos # (Auto) Seg Neutrophils % Seg Neuts % (Manual) Baso # (Auto) Lymphocytes % (Manual) Monocytes % (Manual) Eosinophils % (Manual) Basophils % (Manual) Seg Neutrophils # Seg Neutrophils # Man Lymphocytes # (Manual) Monocytes # (Manual) Eosinophils # (Manual) Nucleated RBC % Basophils # (Manual) PT INR APTT Heparin Anti-Xa Level ABG pH POC ABG pO2 ABG pO2 ABG HCO3 ABG O2 Saturation ABG Base Excess POC ABG pCO2 ABG Hemoglobin ABG Oxyhemoglobin ABG Sodium ABG Chloride ABG Glucose Oxyhemoglobin Sodium Potassium Chloride Carbon Dioxide BUN Creatinine Glucose POC Glucose 153 H 130 H 130 H Lactic Acid Calcium Phosphorus Magnesium AST ALT Lactate Dehydrogenase Total Bilirubin Direct Bilirubin CK-MB (CK-2) C-Reactive Protein NT-Pro-B Natriuret Pep Total Protein Albumin Arterial Blood Glucose Urine WBC (Auto) Urine Creatinine 02/14/20 02/15/20 02/15/20 11:32 00:12 05:27 WBC RBC Hgb Hct MCHC RDW MCV MCH Lymph % (Auto) Hood % (Auto) Hood # Eos # Lymph # (Auto) Hood # (Auto) Eos # (Auto) Seg Neutrophils % Seg Neuts % (Manual) Baso # (Auto) Lymphocytes % (Manual) Monocytes % (Manual) Eosinophils % (Manual) Basophils % (Manual) Seg Neutrophils # Seg Neutrophils # Man Lymphocytes # (Manual) Monocytes # (Manual) Eosinophils # (Manual) Nucleated RBC % Basophils # (Manual) PT INR APTT Heparin Anti-Xa Level ABG pH POC ABG pO2 ABG pO2 ABG HCO3 ABG O2 Saturation ABG Base Excess POC ABG pCO2 ABG Hemoglobin ABG Oxyhemoglobin ABG Sodium ABG Chloride ABG Glucose Oxyhemoglobin Sodium Potassium Chloride Carbon Dioxide BUN Creatinine Glucose POC Glucose 157 H 124 H 111 H Lactic Acid Calcium Phosphorus Magnesium AST ALT Lactate Dehydrogenase Total Bilirubin Direct Bilirubin CK-MB (CK-2) C-Reactive Protein NT-Pro-B Natriuret Pep Total Protein Albumin Arterial Blood Glucose Urine WBC (Auto) Urine Creatinine 02/15/20 02/15/20 02/15/20 06:59 06:59 11:14 WBC RBC Hgb 10.4 L Hct 33.7 L MCHC 31 L RDW 19.4 H MCV 80 L MCH 24 L Lymph % (Auto) Hood % (Auto) Hood # Eos # Lymph # (Auto) Hood # (Auto) Eos # (Auto) Seg Neutrophils % Seg Neuts % (Manual) Baso # (Auto) Lymphocytes % (Manual) Monocytes % (Manual) Eosinophils % (Manual) Basophils % (Manual) 2.0 H Seg Neutrophils # Seg Neutrophils # Man Lymphocytes # (Manual) Monocytes # (Manual) Eosinophils # (Manual) Nucleated RBC % 1.0 H Basophils # (Manual) 0.2 H PT INR APTT Heparin Anti-Xa Level ABG pH POC ABG pO2 ABG pO2 ABG HCO3 ABG O2 Saturation ABG Base Excess POC ABG pCO2 ABG Hemoglobin ABG Oxyhemoglobin ABG Sodium ABG Chloride ABG Glucose Oxyhemoglobin Sodium 149 H Potassium Chloride 108.4 H Carbon Dioxide 31 H BUN 40 H Creatinine 0.7 L Glucose 150 H POC Glucose 128 H Lactic Acid Calcium Phosphorus Magnesium AST ALT Lactate Dehydrogenase Total Bilirubin Direct Bilirubin CK-MB (CK-2) C-Reactive Protein NT-Pro-B Natriuret Pep Total Protein Albumin Arterial Blood Glucose Urine WBC (Auto) Urine Creatinine 02/15/20 02/15/20 02/16/20 17:46 23:50 05:03 WBC RBC Hgb Hct MCHC RDW MCV MCH Lymph % (Auto) Hood % (Auto) Hood # Eos # Lymph # (Auto) Hood # (Auto) Eos # (Auto) Seg Neutrophils % Seg Neuts % (Manual) Baso # (Auto) Lymphocytes % (Manual) Monocytes % (Manual) Eosinophils % (Manual) Basophils % (Manual) Seg Neutrophils # Seg Neutrophils # Man Lymphocytes # (Manual) Monocytes # (Manual) Eosinophils # (Manual) Nucleated RBC % Basophils # (Manual) PT INR APTT Heparin Anti-Xa Level ABG pH POC ABG pO2 ABG pO2 ABG HCO3 ABG O2 Saturation ABG Base Excess POC ABG pCO2 ABG Hemoglobin ABG Oxyhemoglobin ABG Sodium ABG Chloride ABG Glucose Oxyhemoglobin Sodium Potassium Chloride Carbon Dioxide BUN Creatinine Glucose POC Glucose 154 H 135 H 148 H Lactic Acid Calcium Phosphorus Magnesium AST ALT Lactate Dehydrogenase Total Bilirubin Direct Bilirubin CK-MB (CK-2) C-Reactive Protein NT-Pro-B Natriuret Pep Total Protein Albumin Arterial Blood Glucose Urine WBC (Auto) Urine Creatinine 02/16/20 02/16/20 02/16/20 07:53 11:28 17:52 WBC RBC Hgb Hct MCHC RDW MCV MCH Lymph % (Auto) Hood % (Auto) Hood # Eos # Lymph # (Auto) Hood # (Auto) Eos # (Auto) Seg Neutrophils % Seg Neuts % (Manual) Baso # (Auto) Lymphocytes % (Manual) Monocytes % (Manual) Eosinophils % (Manual) Basophils % (Manual) Seg Neutrophils # Seg Neutrophils # Man Lymphocytes # (Manual) Monocytes # (Manual) Eosinophils # (Manual) Nucleated RBC % Basophils # (Manual) PT INR APTT Heparin Anti-Xa Level ABG pH POC ABG pO2 ABG pO2 ABG HCO3 ABG O2 Saturation ABG Base Excess POC ABG pCO2 ABG Hemoglobin ABG Oxyhemoglobin ABG Sodium ABG Chloride ABG Glucose Oxyhemoglobin Sodium Potassium Chloride 107.9 H Carbon Dioxide BUN 38 H Creatinine 0.6 L Glucose 151 H POC Glucose 123 H 152 H Lactic Acid Calcium Phosphorus Magnesium AST ALT Lactate Dehydrogenase Total Bilirubin Direct Bilirubin CK-MB (CK-2) C-Reactive Protein NT-Pro-B Natriuret Pep Total Protein Albumin Arterial Blood Glucose Urine WBC (Auto) Urine Creatinine 02/16/20 02/17/20 02/17/20 23:49 06:24 11:36 WBC RBC Hgb Hct MCHC RDW MCV MCH Lymph % (Auto) Hood % (Auto) Hood # Eos # Lymph # (Auto) Hood # (Auto) Eos # (Auto) Seg Neutrophils % Seg Neuts % (Manual) Baso # (Auto) Lymphocytes % (Manual) Monocytes % (Manual) Eosinophils % (Manual) Basophils % (Manual) Seg Neutrophils # Seg Neutrophils # Man Lymphocytes # (Manual) Monocytes # (Manual) Eosinophils # (Manual) Nucleated RBC % Basophils # (Manual) PT INR APTT Heparin Anti-Xa Level ABG pH POC ABG pO2 ABG pO2 ABG HCO3 ABG O2 Saturation ABG Base Excess POC ABG pCO2 ABG Hemoglobin ABG Oxyhemoglobin ABG Sodium ABG Chloride ABG Glucose Oxyhemoglobin Sodium Potassium Chloride Carbon Dioxide BUN Creatinine Glucose POC Glucose 156 H 193 H 162 H Lactic Acid Calcium Phosphorus Magnesium AST ALT Lactate Dehydrogenase Total Bilirubin Direct Bilirubin CK-MB (CK-2) C-Reactive Protein NT-Pro-B Natriuret Pep Total Protein Albumin Arterial Blood Glucose Urine WBC (Auto) Urine Creatinine 02/17/20 02/17/20 02/18/20 17:55 23:28 05:11 WBC RBC Hgb Hct MCHC RDW MCV MCH Lymph % (Auto) Hood % (Auto) Hood # Eos # Lymph # (Auto) Hood # (Auto) Eos # (Auto) Seg Neutrophils % Seg Neuts % (Manual) Baso # (Auto) Lymphocytes % (Manual) Monocytes % (Manual) Eosinophils % (Manual) Basophils % (Manual) Seg Neutrophils # Seg Neutrophils # Man Lymphocytes # (Manual) Monocytes # (Manual) Eosinophils # (Manual) Nucleated RBC % Basophils # (Manual) PT INR APTT Heparin Anti-Xa Level ABG pH POC ABG pO2 ABG pO2 ABG HCO3 ABG O2 Saturation ABG Base Excess POC ABG pCO2 ABG Hemoglobin ABG Oxyhemoglobin ABG Sodium ABG Chloride ABG Glucose Oxyhemoglobin Sodium Potassium Chloride Carbon Dioxide BUN Creatinine Glucose POC Glucose 165 H 146 H 122 H Lactic Acid Calcium Phosphorus Magnesium AST ALT Lactate Dehydrogenase Total Bilirubin Direct Bilirubin CK-MB (CK-2) C-Reactive Protein NT-Pro-B Natriuret Pep Total Protein Albumin Arterial Blood Glucose Urine WBC (Auto) Urine Creatinine 02/18/20 02/18/20 02/19/20 12:24 17:29 00:01 WBC RBC Hgb Hct MCHC RDW MCV MCH Lymph % (Auto) Hood % (Auto) Hood # Eos # Lymph # (Auto) Hood # (Auto) Eos # (Auto) Seg Neutrophils % Seg Neuts % (Manual) Baso # (Auto) Lymphocytes % (Manual) Monocytes % (Manual) Eosinophils % (Manual) Basophils % (Manual) Seg Neutrophils # Seg Neutrophils # Man Lymphocytes # (Manual) Monocytes # (Manual) Eosinophils # (Manual) Nucleated RBC % Basophils # (Manual) PT INR APTT Heparin Anti-Xa Level ABG pH POC ABG pO2 ABG pO2 ABG HCO3 ABG O2 Saturation ABG Base Excess POC ABG pCO2 ABG Hemoglobin ABG Oxyhemoglobin ABG Sodium ABG Chloride ABG Glucose Oxyhemoglobin Sodium Potassium Chloride Carbon Dioxide BUN Creatinine Glucose POC Glucose 162 H 136 H 145 H Lactic Acid Calcium Phosphorus Magnesium AST ALT Lactate Dehydrogenase Total Bilirubin Direct Bilirubin CK-MB (CK-2) C-Reactive Protein NT-Pro-B Natriuret Pep Total Protein Albumin Arterial Blood Glucose Urine WBC (Auto) Urine Creatinine 02/19/20 02/19/20 02/19/20 05:53 11:44 17:32 WBC RBC Hgb Hct MCHC RDW MCV MCH Lymph % (Auto) Hood % (Auto) Hood # Eos # Lymph # (Auto) Hood # (Auto) Eos # (Auto) Seg Neutrophils % Seg Neuts % (Manual) Baso # (Auto) Lymphocytes % (Manual) Monocytes % (Manual) Eosinophils % (Manual) Basophils % (Manual) Seg Neutrophils # Seg Neutrophils # Man Lymphocytes # (Manual) Monocytes # (Manual) Eosinophils # (Manual) Nucleated RBC % Basophils # (Manual) PT INR APTT Heparin Anti-Xa Level ABG pH POC ABG pO2 ABG pO2 ABG HCO3 ABG O2 Saturation ABG Base Excess POC ABG pCO2 ABG Hemoglobin ABG Oxyhemoglobin ABG Sodium ABG Chloride ABG Glucose Oxyhemoglobin Sodium Potassium Chloride Carbon Dioxide BUN Creatinine Glucose POC Glucose 116 H 120 H 154 H Lactic Acid Calcium Phosphorus Magnesium AST ALT Lactate Dehydrogenase Total Bilirubin Direct Bilirubin CK-MB (CK-2) C-Reactive Protein NT-Pro-B Natriuret Pep Total Protein Albumin Arterial Blood Glucose Urine WBC (Auto) Urine Creatinine 02/19/20 02/20/20 02/20/20 23:43 00:24 00:24 WBC RBC Hgb 9.4 L Hct 30.0 L MCHC 31 L RDW 20.4 H MCV 79 L MCH 25 L Lymph % (Auto) Hood % (Auto) 8.5 H Hood # Eos # Lymph # (Auto) Hood # (Auto) Eos # (Auto) Seg Neutrophils % Seg Neuts % (Manual) Baso # (Auto) Lymphocytes % (Manual) Monocytes % (Manual) Eosinophils % (Manual) Basophils % (Manual) Seg Neutrophils # Seg Neutrophils # Man Lymphocytes # (Manual) Monocytes # (Manual) Eosinophils # (Manual) Nucleated RBC % Basophils # (Manual) PT INR APTT Heparin Anti-Xa Level ABG pH POC ABG pO2 ABG pO2 ABG HCO3 ABG O2 Saturation ABG Base Excess POC ABG pCO2 ABG Hemoglobin ABG Oxyhemoglobin ABG Sodium ABG Chloride ABG Glucose Oxyhemoglobin Sodium 147 H Potassium 3.4 L Chloride Carbon Dioxide 31 H BUN 34 H Creatinine 0.5 L Glucose 135 H POC Glucose 122 H Lactic Acid Calcium Phosphorus Magnesium AST ALT Lactate Dehydrogenase Total Bilirubin Direct Bilirubin CK-MB (CK-2) C-Reactive Protein NT-Pro-B Natriuret Pep Total Protein Albumin Arterial Blood Glucose Urine WBC (Auto) Urine Creatinine 02/20/20 02/20/20 02/20/20 06:07 06:45 12:03 WBC RBC Hgb Hct MCHC RDW MCV MCH Lymph % (Auto) Hood % (Auto) Hood # Eos # Lymph # (Auto) Hood # (Auto) Eos # (Auto) Seg Neutrophils % Seg Neuts % (Manual) Baso # (Auto) Lymphocytes % (Manual) Monocytes % (Manual) Eosinophils % (Manual) Basophils % (Manual) Seg Neutrophils # Seg Neutrophils # Man Lymphocytes # (Manual) Monocytes # (Manual) Eosinophils # (Manual) Nucleated RBC % Basophils # (Manual) PT INR APTT Heparin Anti-Xa Level ABG pH 7.461 H POC ABG pO2 ABG pO2 ABG HCO3 33.3 H ABG O2 Saturation ABG Base Excess 8.4 H POC ABG pCO2 ABG Hemoglobin 10.0 L ABG Oxyhemoglobin ABG Sodium ABG Chloride ABG Glucose Oxyhemoglobin 94.1 L Sodium Potassium Chloride Carbon Dioxide BUN Creatinine Glucose POC Glucose 109 H 128 H Lactic Acid Calcium Phosphorus Magnesium AST ALT Lactate Dehydrogenase Total Bilirubin Direct Bilirubin CK-MB (CK-2) C-Reactive Protein NT-Pro-B Natriuret Pep Total Protein Albumin Arterial Blood Glucose Urine WBC (Auto) Urine Creatinine 02/20/20 02/20/20 02/21/20 18:02 23:55 05:42 WBC RBC Hgb Hct MCHC RDW MCV MCH Lymph % (Auto) Hood % (Auto) Hood # Eos # Lymph # (Auto) Hood # (Auto) Eos # (Auto) Seg Neutrophils % Seg Neuts % (Manual) Baso # (Auto) Lymphocytes % (Manual) Monocytes % (Manual) Eosinophils % (Manual) Basophils % (Manual) Seg Neutrophils # Seg Neutrophils # Man Lymphocytes # (Manual) Monocytes # (Manual) Eosinophils # (Manual) Nucleated RBC % Basophils # (Manual) PT INR APTT Heparin Anti-Xa Level ABG pH POC ABG pO2 ABG pO2 ABG HCO3 ABG O2 Saturation ABG Base Excess POC ABG pCO2 ABG Hemoglobin ABG Oxyhemoglobin ABG Sodium ABG Chloride ABG Glucose Oxyhemoglobin Sodium Potassium Chloride Carbon Dioxide BUN Creatinine Glucose POC Glucose 118 H 125 H 127 H Lactic Acid Calcium Phosphorus Magnesium AST ALT Lactate Dehydrogenase Total Bilirubin Direct Bilirubin CK-MB (CK-2) C-Reactive Protein NT-Pro-B Natriuret Pep Total Protein Albumin Arterial Blood Glucose Urine WBC (Auto) Urine Creatinine 02/21/20 02/21/20 02/21/20 12:10 17:35 23:40 WBC RBC Hgb Hct MCHC RDW MCV MCH Lymph % (Auto) Hood % (Auto) Hood # Eos # Lymph # (Auto) Hood # (Auto) Eos # (Auto) Seg Neutrophils % Seg Neuts % (Manual) Baso # (Auto) Lymphocytes % (Manual) Monocytes % (Manual) Eosinophils % (Manual) Basophils % (Manual) Seg Neutrophils # Seg Neutrophils # Man Lymphocytes # (Manual) Monocytes # (Manual) Eosinophils # (Manual) Nucleated RBC % Basophils # (Manual) PT INR APTT Heparin Anti-Xa Level ABG pH POC ABG pO2 ABG pO2 ABG HCO3 ABG O2 Saturation ABG Base Excess POC ABG pCO2 ABG Hemoglobin ABG Oxyhemoglobin ABG Sodium ABG Chloride ABG Glucose Oxyhemoglobin Sodium Potassium Chloride Carbon Dioxide BUN Creatinine Glucose POC Glucose 128 H 113 H 125 H Lactic Acid Calcium Phosphorus Magnesium AST ALT Lactate Dehydrogenase Total Bilirubin Direct Bilirubin CK-MB (CK-2) C-Reactive Protein NT-Pro-B Natriuret Pep Total Protein Albumin Arterial Blood Glucose Urine WBC (Auto) Urine Creatinine 02/22/20 02/22/20 02/22/20 05:57 08:06 08:06 WBC RBC Hgb 10.8 L Hct 35.2 L MCHC 31 L RDW 21.8 H MCV 80 L MCH 25 L Lymph % (Auto) Hood % (Auto) Hood # Eos # Lymph # (Auto) Hood # (Auto) Eos # (Auto) Seg Neutrophils % 71.5 H Seg Neuts % (Manual) Baso # (Auto) Lymphocytes % (Manual) Monocytes % (Manual) Eosinophils % (Manual) Basophils % (Manual) Seg Neutrophils # Seg Neutrophils # Man Lymphocytes # (Manual) Monocytes # (Manual) Eosinophils # (Manual) Nucleated RBC % Basophils # (Manual) PT INR APTT Heparin Anti-Xa Level ABG pH POC ABG pO2 ABG pO2 ABG HCO3 ABG O2 Saturation ABG Base Excess POC ABG pCO2 ABG Hemoglobin ABG Oxyhemoglobin ABG Sodium ABG Chloride ABG Glucose Oxyhemoglobin Sodium 146 H Potassium Chloride Carbon Dioxide 34 H BUN 21 H Creatinine 0.4 L Glucose 149 H POC Glucose 138 H Lactic Acid Calcium Phosphorus Magnesium AST ALT Lactate Dehydrogenase Total Bilirubin Direct Bilirubin CK-MB (CK-2) C-Reactive Protein NT-Pro-B Natriuret Pep Total Protein Albumin Arterial Blood Glucose Urine WBC (Auto) Urine Creatinine 02/22/20 02/22/20 02/22/20 11:47 17:11 23:25 WBC RBC Hgb Hct MCHC RDW MCV MCH Lymph % (Auto) Hood % (Auto) Hood # Eos # Lymph # (Auto) Hood # (Auto) Eos # (Auto) Seg Neutrophils % Seg Neuts % (Manual) Baso # (Auto) Lymphocytes % (Manual) Monocytes % (Manual) Eosinophils % (Manual) Basophils % (Manual) Seg Neutrophils # Seg Neutrophils # Man Lymphocytes # (Manual) Monocytes # (Manual) Eosinophils # (Manual) Nucleated RBC % Basophils # (Manual) PT INR APTT Heparin Anti-Xa Level ABG pH POC ABG pO2 ABG pO2 ABG HCO3 ABG O2 Saturation ABG Base Excess POC ABG pCO2 ABG Hemoglobin ABG Oxyhemoglobin ABG Sodium ABG Chloride ABG Glucose Oxyhemoglobin Sodium Potassium Chloride Carbon Dioxide BUN Creatinine Glucose POC Glucose 149 H 144 H 142 H Lactic Acid Calcium Phosphorus Magnesium AST ALT Lactate Dehydrogenase Total Bilirubin Direct Bilirubin CK-MB (CK-2) C-Reactive Protein NT-Pro-B Natriuret Pep Total Protein Albumin Arterial Blood Glucose Urine WBC (Auto) Urine Creatinine 02/23/20 02/23/20 02/23/20 05:22 11:37 18:14 WBC RBC Hgb Hct MCHC RDW MCV MCH Lymph % (Auto) Hood % (Auto) Hood # Eos # Lymph # (Auto) Hood # (Auto) Eos # (Auto) Seg Neutrophils % Seg Neuts % (Manual) Baso # (Auto) Lymphocytes % (Manual) Monocytes % (Manual) Eosinophils % (Manual) Basophils % (Manual) Seg Neutrophils # Seg Neutrophils # Man Lymphocytes # (Manual) Monocytes # (Manual) Eosinophils # (Manual) Nucleated RBC % Basophils # (Manual) PT INR APTT Heparin Anti-Xa Level ABG pH POC ABG pO2 ABG pO2 ABG HCO3 ABG O2 Saturation ABG Base Excess POC ABG pCO2 ABG Hemoglobin ABG Oxyhemoglobin ABG Sodium ABG Chloride ABG Glucose Oxyhemoglobin Sodium Potassium Chloride Carbon Dioxide BUN Creatinine Glucose POC Glucose 144 H 113 H 127 H Lactic Acid Calcium Phosphorus Magnesium AST ALT Lactate Dehydrogenase Total Bilirubin Direct Bilirubin CK-MB (CK-2) C-Reactive Protein NT-Pro-B Natriuret Pep Total Protein Albumin Arterial Blood Glucose Urine WBC (Auto) Urine Creatinine 02/23/20 02/24/20 02/24/20 23:45 05:50 11:24 WBC RBC Hgb Hct MCHC RDW MCV MCH Lymph % (Auto) Hood % (Auto) Hood # Eos # Lymph # (Auto) Hood # (Auto) Eos # (Auto) Seg Neutrophils % Seg Neuts % (Manual) Baso # (Auto) Lymphocytes % (Manual) Monocytes % (Manual) Eosinophils % (Manual) Basophils % (Manual) Seg Neutrophils # Seg Neutrophils # Man Lymphocytes # (Manual) Monocytes # (Manual) Eosinophils # (Manual) Nucleated RBC % Basophils # (Manual) PT INR APTT Heparin Anti-Xa Level ABG pH POC ABG pO2 ABG pO2 ABG HCO3 ABG O2 Saturation ABG Base Excess POC ABG pCO2 ABG Hemoglobin ABG Oxyhemoglobin ABG Sodium ABG Chloride ABG Glucose Oxyhemoglobin Sodium Potassium Chloride Carbon Dioxide BUN Creatinine Glucose POC Glucose 123 H 117 H 126 H Lactic Acid Calcium Phosphorus Magnesium AST ALT Lactate Dehydrogenase Total Bilirubin Direct Bilirubin CK-MB (CK-2) C-Reactive Protein NT-Pro-B Natriuret Pep Total Protein Albumin Arterial Blood Glucose Urine WBC (Auto) Urine Creatinine 02/24/20 02/24/20 02/25/20 18:35 23:27 05:20 WBC RBC Hgb Hct MCHC RDW MCV MCH Lymph % (Auto) Hood % (Auto) Hood # Eos # Lymph # (Auto) Hood # (Auto) Eos # (Auto) Seg Neutrophils % Seg Neuts % (Manual) Baso # (Auto) Lymphocytes % (Manual) Monocytes % (Manual) Eosinophils % (Manual) Basophils % (Manual) Seg Neutrophils # Seg Neutrophils # Man Lymphocytes # (Manual) Monocytes # (Manual) Eosinophils # (Manual) Nucleated RBC % Basophils # (Manual) PT INR APTT Heparin Anti-Xa Level ABG pH POC ABG pO2 ABG pO2 ABG HCO3 ABG O2 Saturation ABG Base Excess POC ABG pCO2 ABG Hemoglobin ABG Oxyhemoglobin ABG Sodium ABG Chloride ABG Glucose Oxyhemoglobin Sodium Potassium Chloride Carbon Dioxide BUN Creatinine Glucose POC Glucose 121 H 127 H 133 H Lactic Acid Calcium Phosphorus Magnesium AST ALT Lactate Dehydrogenase Total Bilirubin Direct Bilirubin CK-MB (CK-2) C-Reactive Protein NT-Pro-B Natriuret Pep Total Protein Albumin Arterial Blood Glucose Urine WBC (Auto) Urine Creatinine 02/25/20 02/25/20 02/25/20 12:08 17:26 23:33 WBC RBC Hgb Hct MCHC RDW MCV MCH Lymph % (Auto) Hood % (Auto) Hood # Eos # Lymph # (Auto) Hood # (Auto) Eos # (Auto) Seg Neutrophils % Seg Neuts % (Manual) Baso # (Auto) Lymphocytes % (Manual) Monocytes % (Manual) Eosinophils % (Manual) Basophils % (Manual) Seg Neutrophils # Seg Neutrophils # Man Lymphocytes # (Manual) Monocytes # (Manual) Eosinophils # (Manual) Nucleated RBC % Basophils # (Manual) PT INR APTT Heparin Anti-Xa Level ABG pH POC ABG pO2 ABG pO2 ABG HCO3 ABG O2 Saturation ABG Base Excess POC ABG pCO2 ABG Hemoglobin ABG Oxyhemoglobin ABG Sodium ABG Chloride ABG Glucose Oxyhemoglobin Sodium Potassium Chloride Carbon Dioxide BUN Creatinine Glucose POC Glucose 109 H 120 H 120 H Lactic Acid Calcium Phosphorus Magnesium AST ALT Lactate Dehydrogenase Total Bilirubin Direct Bilirubin CK-MB (CK-2) C-Reactive Protein NT-Pro-B Natriuret Pep Total Protein Albumin Arterial Blood Glucose Urine WBC (Auto) Urine Creatinine 02/26/20 02/26/20 02/27/20 05:33 07:50 12:13 WBC RBC Hgb Hct MCHC RDW MCV MCH Lymph % (Auto) Hood % (Auto) Hood # Eos # Lymph # (Auto) Hood # (Auto) Eos # (Auto) Seg Neutrophils % Seg Neuts % (Manual) Baso # (Auto) Lymphocytes % (Manual) Monocytes % (Manual) Eosinophils % (Manual) Basophils % (Manual) Seg Neutrophils # Seg Neutrophils # Man Lymphocytes # (Manual) Monocytes # (Manual) Eosinophils # (Manual) Nucleated RBC % Basophils # (Manual) PT INR APTT Heparin Anti-Xa Level ABG pH POC ABG pO2 ABG pO2 ABG HCO3 ABG O2 Saturation ABG Base Excess POC ABG pCO2 ABG Hemoglobin ABG Oxyhemoglobin ABG Sodium ABG Chloride ABG Glucose Oxyhemoglobin Sodium Potassium Chloride Carbon Dioxide BUN Creatinine Glucose POC Glucose 106 H 130 H Lactic Acid Calcium Phosphorus Magnesium AST ALT Lactate Dehydrogenase Total Bilirubin Direct Bilirubin CK-MB (CK-2) C-Reactive Protein NT-Pro-B Natriuret Pep Total Protein Albumin Arterial Blood Glucose Urine WBC (Auto) > 182.0 H Urine Creatinine 02/27/20 02/27/20 02/28/20 18:20 23:33 05:01 WBC RBC Hgb Hct MCHC RDW MCV MCH Lymph % (Auto) Hood % (Auto) Hood # Eos # Lymph # (Auto) Hood # (Auto) Eos # (Auto) Seg Neutrophils % Seg Neuts % (Manual) Baso # (Auto) Lymphocytes % (Manual) Monocytes % (Manual) Eosinophils % (Manual) Basophils % (Manual) Seg Neutrophils # Seg Neutrophils # Man Lymphocytes # (Manual) Monocytes # (Manual) Eosinophils # (Manual) Nucleated RBC % Basophils # (Manual) PT INR APTT Heparin Anti-Xa Level ABG pH POC ABG pO2 ABG pO2 ABG HCO3 ABG O2 Saturation ABG Base Excess POC ABG pCO2 ABG Hemoglobin ABG Oxyhemoglobin ABG Sodium ABG Chloride ABG Glucose Oxyhemoglobin Sodium Potassium Chloride Carbon Dioxide BUN Creatinine Glucose POC Glucose 109 H 124 H 134 H Lactic Acid Calcium Phosphorus Magnesium AST ALT Lactate Dehydrogenase Total Bilirubin Direct Bilirubin CK-MB (CK-2) C-Reactive Protein NT-Pro-B Natriuret Pep Total Protein Albumin Arterial Blood Glucose Urine WBC (Auto) Urine Creatinine 02/28/20 02/28/20 02/28/20 11:54 18:16 23:03 WBC RBC Hgb Hct MCHC RDW MCV MCH Lymph % (Auto) Hood % (Auto) Hood # Eos # Lymph # (Auto) Hood # (Auto) Eos # (Auto) Seg Neutrophils % Seg Neuts % (Manual) Baso # (Auto) Lymphocytes % (Manual) Monocytes % (Manual) Eosinophils % (Manual) Basophils % (Manual) Seg Neutrophils # Seg Neutrophils # Man Lymphocytes # (Manual) Monocytes # (Manual) Eosinophils # (Manual) Nucleated RBC % Basophils # (Manual) PT INR APTT Heparin Anti-Xa Level ABG pH POC ABG pO2 ABG pO2 ABG HCO3 ABG O2 Saturation ABG Base Excess POC ABG pCO2 ABG Hemoglobin ABG Oxyhemoglobin ABG Sodium ABG Chloride ABG Glucose Oxyhemoglobin Sodium Potassium Chloride Carbon Dioxide BUN Creatinine Glucose POC Glucose 133 H 134 H 146 H Lactic Acid Calcium Phosphorus Magnesium AST ALT Lactate Dehydrogenase Total Bilirubin Direct Bilirubin CK-MB (CK-2) C-Reactive Protein NT-Pro-B Natriuret Pep Total Protein Albumin Arterial Blood Glucose Urine WBC (Auto) Urine Creatinine 02/29/20 02/29/20 02/29/20 05:24 11:34 17:12 WBC RBC Hgb Hct MCHC RDW MCV MCH Lymph % (Auto) Hood % (Auto) Hood # Eos # Lymph # (Auto) Hood # (Auto) Eos # (Auto) Seg Neutrophils % Seg Neuts % (Manual) Baso # (Auto) Lymphocytes % (Manual) Monocytes % (Manual) Eosinophils % (Manual) Basophils % (Manual) Seg Neutrophils # Seg Neutrophils # Man Lymphocytes # (Manual) Monocytes # (Manual) Eosinophils # (Manual) Nucleated RBC % Basophils # (Manual) PT INR APTT Heparin Anti-Xa Level ABG pH POC ABG pO2 ABG pO2 ABG HCO3 ABG O2 Saturation ABG Base Excess POC ABG pCO2 ABG Hemoglobin ABG Oxyhemoglobin ABG Sodium ABG Chloride ABG Glucose Oxyhemoglobin Sodium Potassium Chloride Carbon Dioxide BUN Creatinine Glucose POC Glucose 139 H 141 H 157 H Lactic Acid Calcium Phosphorus Magnesium AST ALT Lactate Dehydrogenase Total Bilirubin Direct Bilirubin CK-MB (CK-2) C-Reactive Protein NT-Pro-B Natriuret Pep Total Protein Albumin Arterial Blood Glucose Urine WBC (Auto) Urine Creatinine 02/29/20 03/01/20 03/01/20 23:35 06:00 11:53 WBC RBC Hgb Hct MCHC RDW MCV MCH Lymph % (Auto) Hood % (Auto) Hood # Eos # Lymph # (Auto) Hood # (Auto) Eos # (Auto) Seg Neutrophils % Seg Neuts % (Manual) Baso # (Auto) Lymphocytes % (Manual) Monocytes % (Manual) Eosinophils % (Manual) Basophils % (Manual) Seg Neutrophils # Seg Neutrophils # Man Lymphocytes # (Manual) Monocytes # (Manual) Eosinophils # (Manual) Nucleated RBC % Basophils # (Manual) PT INR APTT Heparin Anti-Xa Level ABG pH POC ABG pO2 ABG pO2 ABG HCO3 ABG O2 Saturation ABG Base Excess POC ABG pCO2 ABG Hemoglobin ABG Oxyhemoglobin ABG Sodium ABG Chloride ABG Glucose Oxyhemoglobin Sodium Potassium Chloride Carbon Dioxide BUN Creatinine Glucose POC Glucose 120 H 132 H 136 H Lactic Acid Calcium Phosphorus Magnesium AST ALT Lactate Dehydrogenase Total Bilirubin Direct Bilirubin CK-MB (CK-2) C-Reactive Protein NT-Pro-B Natriuret Pep Total Protein Albumin Arterial Blood Glucose Urine WBC (Auto) Urine Creatinine 03/01/20 03/01/20 03/02/20 17:36 23:16 05:12 WBC RBC Hgb Hct MCHC RDW MCV MCH Lymph % (Auto) Hood % (Auto) Hood # Eos # Lymph # (Auto) Hood # (Auto) Eos # (Auto) Seg Neutrophils % Seg Neuts % (Manual) Baso # (Auto) Lymphocytes % (Manual) Monocytes % (Manual) Eosinophils % (Manual) Basophils % (Manual) Seg Neutrophils # Seg Neutrophils # Man Lymphocytes # (Manual) Monocytes # (Manual) Eosinophils # (Manual) Nucleated RBC % Basophils # (Manual) PT INR APTT Heparin Anti-Xa Level ABG pH POC ABG pO2 ABG pO2 ABG HCO3 ABG O2 Saturation ABG Base Excess POC ABG pCO2 ABG Hemoglobin ABG Oxyhemoglobin ABG Sodium ABG Chloride ABG Glucose Oxyhemoglobin Sodium Potassium Chloride Carbon Dioxide BUN Creatinine Glucose POC Glucose 171 H 164 H 176 H Lactic Acid Calcium Phosphorus Magnesium AST ALT Lactate Dehydrogenase Total Bilirubin Direct Bilirubin CK-MB (CK-2) C-Reactive Protein NT-Pro-B Natriuret Pep Total Protein Albumin Arterial Blood Glucose Urine WBC (Auto) Urine Creatinine 03/02/20 03/02/20 03/03/20 11:42 18:01 00:06 WBC RBC Hgb Hct MCHC RDW MCV MCH Lymph % (Auto) Hood % (Auto) Hood # Eos # Lymph # (Auto) Hood # (Auto) Eos # (Auto) Seg Neutrophils % Seg Neuts % (Manual) Baso # (Auto) Lymphocytes % (Manual) Monocytes % (Manual) Eosinophils % (Manual) Basophils % (Manual) Seg Neutrophils # Seg Neutrophils # Man Lymphocytes # (Manual) Monocytes # (Manual) Eosinophils # (Manual) Nucleated RBC % Basophils # (Manual) PT INR APTT Heparin Anti-Xa Level ABG pH POC ABG pO2 ABG pO2 ABG HCO3 ABG O2 Saturation ABG Base Excess POC ABG pCO2 ABG Hemoglobin ABG Oxyhemoglobin ABG Sodium ABG Chloride ABG Glucose Oxyhemoglobin Sodium Potassium Chloride Carbon Dioxide BUN Creatinine Glucose POC Glucose 150 H 156 H 156 H Lactic Acid Calcium Phosphorus Magnesium AST ALT Lactate Dehydrogenase Total Bilirubin Direct Bilirubin CK-MB (CK-2) C-Reactive Protein NT-Pro-B Natriuret Pep Total Protein Albumin Arterial Blood Glucose Urine WBC (Auto) Urine Creatinine 03/03/20 03/03/20 03/03/20 03:31 11:20 16:55 WBC RBC Hgb Hct MCHC RDW MCV MCH Lymph % (Auto) Hood % (Auto) Hood # Eos # Lymph # (Auto) Hood # (Auto) Eos # (Auto) Seg Neutrophils % Seg Neuts % (Manual) Baso # (Auto) Lymphocytes % (Manual) Monocytes % (Manual) Eosinophils % (Manual) Basophils % (Manual) Seg Neutrophils # Seg Neutrophils # Man Lymphocytes # (Manual) Monocytes # (Manual) Eosinophils # (Manual) Nucleated RBC % Basophils # (Manual) PT INR APTT Heparin Anti-Xa Level ABG pH POC ABG pO2 ABG pO2 ABG HCO3 ABG O2 Saturation ABG Base Excess POC ABG pCO2 ABG Hemoglobin ABG Oxyhemoglobin ABG Sodium ABG Chloride ABG Glucose Oxyhemoglobin Sodium Potassium Chloride Carbon Dioxide BUN Creatinine Glucose POC Glucose 164 H 125 H 211 H Lactic Acid Calcium Phosphorus Magnesium AST ALT Lactate Dehydrogenase Total Bilirubin Direct Bilirubin CK-MB (CK-2) C-Reactive Protein NT-Pro-B Natriuret Pep Total Protein Albumin Arterial Blood Glucose Urine WBC (Auto) Urine Creatinine 03/04/20 03/04/20 03/04/20 00:29 05:20 12:09 WBC RBC Hgb Hct MCHC RDW MCV MCH Lymph % (Auto) Hood % (Auto) Hood # Eos # Lymph # (Auto) Hood # (Auto) Eos # (Auto) Seg Neutrophils % Seg Neuts % (Manual) Baso # (Auto) Lymphocytes % (Manual) Monocytes % (Manual) Eosinophils % (Manual) Basophils % (Manual) Seg Neutrophils # Seg Neutrophils # Man Lymphocytes # (Manual) Monocytes # (Manual) Eosinophils # (Manual) Nucleated RBC % Basophils # (Manual) PT INR APTT Heparin Anti-Xa Level ABG pH POC ABG pO2 ABG pO2 ABG HCO3 ABG O2 Saturation ABG Base Excess POC ABG pCO2 ABG Hemoglobin ABG Oxyhemoglobin ABG Sodium ABG Chloride ABG Glucose Oxyhemoglobin Sodium Potassium Chloride Carbon Dioxide BUN Creatinine Glucose POC Glucose 169 H 154 H 197 H Lactic Acid Calcium Phosphorus Magnesium AST ALT Lactate Dehydrogenase Total Bilirubin Direct Bilirubin CK-MB (CK-2) C-Reactive Protein NT-Pro-B Natriuret Pep Total Protein Albumin Arterial Blood Glucose Urine WBC (Auto) Urine Creatinine 03/04/20 03/04/20 03/04/20 18:00 20:38 20:38 WBC RBC Hgb 10.1 L Hct 32.7 L MCHC 31 L RDW 24.7 H MCV 79 L MCH 24 L Lymph % (Auto) Hood % (Auto) 8.9 H Hood # Eos # Lymph # (Auto) Hood # (Auto) Eos # (Auto) Seg Neutrophils % Seg Neuts % (Manual) Baso # (Auto) Lymphocytes % (Manual) Monocytes % (Manual) Eosinophils % (Manual) Basophils % (Manual) Seg Neutrophils # Seg Neutrophils # Man Lymphocytes # (Manual) Monocytes # (Manual) Eosinophils # (Manual) Nucleated RBC % Basophils # (Manual) PT INR APTT Heparin Anti-Xa Level ABG pH POC ABG pO2 ABG pO2 ABG HCO3 ABG O2 Saturation ABG Base Excess POC ABG pCO2 ABG Hemoglobin ABG Oxyhemoglobin ABG Sodium ABG Chloride ABG Glucose Oxyhemoglobin Sodium 136 L Potassium Chloride Carbon Dioxide BUN 25 H Creatinine 0.5 L Glucose 148 H POC Glucose 146 H Lactic Acid Calcium Phosphorus Magnesium AST ALT Lactate Dehydrogenase Total Bilirubin Direct Bilirubin CK-MB (CK-2) C-Reactive Protein NT-Pro-B Natriuret Pep Total Protein Albumin Arterial Blood Glucose Urine WBC (Auto) Urine Creatinine 03/04/20 03/05/20 03/05/20 23:17 05:44 11:32 WBC RBC Hgb Hct MCHC RDW MCV MCH Lymph % (Auto) Hood % (Auto) Hood # Eos # Lymph # (Auto) Hood # (Auto) Eos # (Auto) Seg Neutrophils % Seg Neuts % (Manual) Baso # (Auto) Lymphocytes % (Manual) Monocytes % (Manual) Eosinophils % (Manual) Basophils % (Manual) Seg Neutrophils # Seg Neutrophils # Man Lymphocytes # (Manual) Monocytes # (Manual) Eosinophils # (Manual) Nucleated RBC % Basophils # (Manual) PT INR APTT Heparin Anti-Xa Level ABG pH POC ABG pO2 ABG pO2 ABG HCO3 ABG O2 Saturation ABG Base Excess POC ABG pCO2 ABG Hemoglobin ABG Oxyhemoglobin ABG Sodium ABG Chloride ABG Glucose Oxyhemoglobin Sodium Potassium Chloride Carbon Dioxide BUN Creatinine Glucose POC Glucose 139 H 155 H 124 H Lactic Acid Calcium Phosphorus Magnesium AST ALT Lactate Dehydrogenase Total Bilirubin Direct Bilirubin CK-MB (CK-2) C-Reactive Protein NT-Pro-B Natriuret Pep Total Protein Albumin Arterial Blood Glucose Urine WBC (Auto) Urine Creatinine 03/05/20 03/05/20 03/06/20 17:45 23:18 12:16 WBC RBC Hgb Hct MCHC RDW MCV MCH Lymph % (Auto) Hood % (Auto) Hood # Eos # Lymph # (Auto) Hood # (Auto) Eos # (Auto) Seg Neutrophils % Seg Neuts % (Manual) Baso # (Auto) Lymphocytes % (Manual) Monocytes % (Manual) Eosinophils % (Manual) Basophils % (Manual) Seg Neutrophils # Seg Neutrophils # Man Lymphocytes # (Manual) Monocytes # (Manual) Eosinophils # (Manual) Nucleated RBC % Basophils # (Manual) PT INR APTT Heparin Anti-Xa Level ABG pH POC ABG pO2 ABG pO2 ABG HCO3 ABG O2 Saturation ABG Base Excess POC ABG pCO2 ABG Hemoglobin ABG Oxyhemoglobin ABG Sodium ABG Chloride ABG Glucose Oxyhemoglobin Sodium Potassium Chloride Carbon Dioxide BUN Creatinine Glucose POC Glucose 171 H 114 H 155 H Lactic Acid Calcium Phosphorus Magnesium AST ALT Lactate Dehydrogenase Total Bilirubin Direct Bilirubin CK-MB (CK-2) C-Reactive Protein NT-Pro-B Natriuret Pep Total Protein Albumin Arterial Blood Glucose Urine WBC (Auto) Urine Creatinine 03/06/20 03/06/20 03/07/20 17:27 23:48 06:02 WBC RBC Hgb Hct MCHC RDW MCV MCH Lymph % (Auto) Hood % (Auto) Hood # Eos # Lymph # (Auto) Hood # (Auto) Eos # (Auto) Seg Neutrophils % Seg Neuts % (Manual) Baso # (Auto) Lymphocytes % (Manual) Monocytes % (Manual) Eosinophils % (Manual) Basophils % (Manual) Seg Neutrophils # Seg Neutrophils # Man Lymphocytes # (Manual) Monocytes # (Manual) Eosinophils # (Manual) Nucleated RBC % Basophils # (Manual) PT INR APTT Heparin Anti-Xa Level ABG pH POC ABG pO2 ABG pO2 ABG HCO3 ABG O2 Saturation ABG Base Excess POC ABG pCO2 ABG Hemoglobin ABG Oxyhemoglobin ABG Sodium ABG Chloride ABG Glucose Oxyhemoglobin Sodium Potassium Chloride Carbon Dioxide BUN Creatinine Glucose POC Glucose 116 H 142 H 161 H Lactic Acid Calcium Phosphorus Magnesium AST ALT Lactate Dehydrogenase Total Bilirubin Direct Bilirubin CK-MB (CK-2) C-Reactive Protein NT-Pro-B Natriuret Pep Total Protein Albumin Arterial Blood Glucose Urine WBC (Auto) Urine Creatinine 03/07/20 03/08/20 03/08/20 11:36 05:18 11:51 WBC RBC Hgb Hct MCHC RDW MCV MCH Lymph % (Auto) Hood % (Auto) Hood # Eos # Lymph # (Auto) Hood # (Auto) Eos # (Auto) Seg Neutrophils % Seg Neuts % (Manual) Baso # (Auto) Lymphocytes % (Manual) Monocytes % (Manual) Eosinophils % (Manual) Basophils % (Manual) Seg Neutrophils # Seg Neutrophils # Man Lymphocytes # (Manual) Monocytes # (Manual) Eosinophils # (Manual) Nucleated RBC % Basophils # (Manual) PT INR APTT Heparin Anti-Xa Level ABG pH POC ABG pO2 ABG pO2 ABG HCO3 ABG O2 Saturation ABG Base Excess POC ABG pCO2 ABG Hemoglobin ABG Oxyhemoglobin ABG Sodium ABG Chloride ABG Glucose Oxyhemoglobin Sodium Potassium Chloride Carbon Dioxide BUN Creatinine Glucose POC Glucose 127 H 142 H 135 H Lactic Acid Calcium Phosphorus Magnesium AST ALT Lactate Dehydrogenase Total Bilirubin Direct Bilirubin CK-MB (CK-2) C-Reactive Protein NT-Pro-B Natriuret Pep Total Protein Albumin Arterial Blood Glucose Urine WBC (Auto) Urine Creatinine 03/08/20 03/08/20 03/09/20 18:14 23:45 05:36 WBC RBC Hgb Hct MCHC RDW MCV MCH Lymph % (Auto) Hood % (Auto) Hood # Eos # Lymph # (Auto) Hood # (Auto) Eos # (Auto) Seg Neutrophils % Seg Neuts % (Manual) Baso # (Auto) Lymphocytes % (Manual) Monocytes % (Manual) Eosinophils % (Manual) Basophils % (Manual) Seg Neutrophils # Seg Neutrophils # Man Lymphocytes # (Manual) Monocytes # (Manual) Eosinophils # (Manual) Nucleated RBC % Basophils # (Manual) PT INR APTT Heparin Anti-Xa Level ABG pH POC ABG pO2 ABG pO2 ABG HCO3 ABG O2 Saturation ABG Base Excess POC ABG pCO2 ABG Hemoglobin ABG Oxyhemoglobin ABG Sodium ABG Chloride ABG Glucose Oxyhemoglobin Sodium Potassium Chloride Carbon Dioxide BUN Creatinine Glucose POC Glucose 125 H 143 H 158 H Lactic Acid Calcium Phosphorus Magnesium AST ALT Lactate Dehydrogenase Total Bilirubin Direct Bilirubin CK-MB (CK-2) C-Reactive Protein NT-Pro-B Natriuret Pep Total Protein Albumin Arterial Blood Glucose Urine WBC (Auto) Urine Creatinine 03/09/20 03/09/20 03/09/20 06:32 06:32 11:34 WBC RBC Hgb 9.8 L Hct 31.6 L MCHC 31 L RDW 23.1 H MCV 80 L MCH 25 L Lymph % (Auto) 35.1 H Hood % (Auto) 11.4 H Hood # Eos # Lymph # (Auto) Hood # (Auto) Eos # (Auto) Seg Neutrophils % Seg Neuts % (Manual) Baso # (Auto) Lymphocytes % (Manual) Monocytes % (Manual) Eosinophils % (Manual) Basophils % (Manual) Seg Neutrophils # Seg Neutrophils # Man Lymphocytes # (Manual) Monocytes # (Manual) Eosinophils # (Manual) Nucleated RBC % Basophils # (Manual) PT INR APTT Heparin Anti-Xa Level ABG pH POC ABG pO2 ABG pO2 ABG HCO3 ABG O2 Saturation ABG Base Excess POC ABG pCO2 ABG Hemoglobin ABG Oxyhemoglobin ABG Sodium ABG Chloride ABG Glucose Oxyhemoglobin Sodium 136 L Potassium Chloride Carbon Dioxide BUN 25 H Creatinine 0.6 L Glucose 170 H POC Glucose 140 H Lactic Acid Calcium Phosphorus Magnesium AST ALT Lactate Dehydrogenase Total Bilirubin Direct Bilirubin CK-MB (CK-2) C-Reactive Protein NT-Pro-B Natriuret Pep Total Protein Albumin Arterial Blood Glucose Urine WBC (Auto) Urine Creatinine 03/09/20 03/09/20 03/10/20 18:10 23:11 05:41 WBC RBC Hgb Hct MCHC RDW MCV MCH Lymph % (Auto) Hood % (Auto) Hood # Eos # Lymph # (Auto) Hood # (Auto) Eos # (Auto) Seg Neutrophils % Seg Neuts % (Manual) Baso # (Auto) Lymphocytes % (Manual) Monocytes % (Manual) Eosinophils % (Manual) Basophils % (Manual) Seg Neutrophils # Seg Neutrophils # Man Lymphocytes # (Manual) Monocytes # (Manual) Eosinophils # (Manual) Nucleated RBC % Basophils # (Manual) PT INR APTT Heparin Anti-Xa Level ABG pH POC ABG pO2 ABG pO2 ABG HCO3 ABG O2 Saturation ABG Base Excess POC ABG pCO2 ABG Hemoglobin ABG Oxyhemoglobin ABG Sodium ABG Chloride ABG Glucose Oxyhemoglobin Sodium Potassium Chloride Carbon Dioxide BUN Creatinine Glucose POC Glucose 153 H 111 H 138 H Lactic Acid Calcium Phosphorus Magnesium AST ALT Lactate Dehydrogenase Total Bilirubin Direct Bilirubin CK-MB (CK-2) C-Reactive Protein NT-Pro-B Natriuret Pep Total Protein Albumin Arterial Blood Glucose Urine WBC (Auto) Urine Creatinine 03/10/20 03/10/20 03/10/20 11:15 17:58 23:36 WBC RBC Hgb Hct MCHC RDW MCV MCH Lymph % (Auto) Hood % (Auto) Hood # Eos # Lymph # (Auto) Hood # (Auto) Eos # (Auto) Seg Neutrophils % Seg Neuts % (Manual) Baso # (Auto) Lymphocytes % (Manual) Monocytes % (Manual) Eosinophils % (Manual) Basophils % (Manual) Seg Neutrophils # Seg Neutrophils # Man Lymphocytes # (Manual) Monocytes # (Manual) Eosinophils # (Manual) Nucleated RBC % Basophils # (Manual) PT INR APTT Heparin Anti-Xa Level ABG pH POC ABG pO2 ABG pO2 ABG HCO3 ABG O2 Saturation ABG Base Excess POC ABG pCO2 ABG Hemoglobin ABG Oxyhemoglobin ABG Sodium ABG Chloride ABG Glucose Oxyhemoglobin Sodium Potassium Chloride Carbon Dioxide BUN Creatinine Glucose POC Glucose 141 H 149 H 148 H Lactic Acid Calcium Phosphorus Magnesium AST ALT Lactate Dehydrogenase Total Bilirubin Direct Bilirubin CK-MB (CK-2) C-Reactive Protein NT-Pro-B Natriuret Pep Total Protein Albumin Arterial Blood Glucose Urine WBC (Auto) Urine Creatinine 03/11/20 03/11/20 03/12/20 05:55 17:43 04:45 WBC RBC Hgb Hct MCHC RDW MCV MCH Lymph % (Auto) Hood % (Auto) Hood # Eos # Lymph # (Auto) Hood # (Auto) Eos # (Auto) Seg Neutrophils % Seg Neuts % (Manual) Baso # (Auto) Lymphocytes % (Manual) Monocytes % (Manual) Eosinophils % (Manual) Basophils % (Manual) Seg Neutrophils # Seg Neutrophils # Man Lymphocytes # (Manual) Monocytes # (Manual) Eosinophils # (Manual) Nucleated RBC % Basophils # (Manual) PT INR APTT Heparin Anti-Xa Level ABG pH 7.454 H POC ABG pO2 69.2 L ABG pO2 ABG HCO3 ABG O2 Saturation ABG Base Excess POC ABG pCO2 ABG Hemoglobin 11.2 L ABG Oxyhemoglobin ABG Sodium 134.7 L ABG Chloride ABG Glucose 151 H Oxyhemoglobin Sodium Potassium Chloride Carbon Dioxide BUN Creatinine Glucose POC Glucose 181 H 107 H Lactic Acid Calcium Phosphorus Magnesium AST ALT Lactate Dehydrogenase Total Bilirubin Direct Bilirubin CK-MB (CK-2) C-Reactive Protein NT-Pro-B Natriuret Pep Total Protein Albumin Arterial Blood Glucose 151 H Urine WBC (Auto) Urine Creatinine 03/12/20 03/12/20 03/12/20 05:36 11:36 17:40 WBC RBC Hgb Hct MCHC RDW MCV MCH Lymph % (Auto) Hood % (Auto) Hood # Eos # Lymph # (Auto) Hood # (Auto) Eos # (Auto) Seg Neutrophils % Seg Neuts % (Manual) Baso # (Auto) Lymphocytes % (Manual) Monocytes % (Manual) Eosinophils % (Manual) Basophils % (Manual) Seg Neutrophils # Seg Neutrophils # Man Lymphocytes # (Manual) Monocytes # (Manual) Eosinophils # (Manual) Nucleated RBC % Basophils # (Manual) PT INR APTT Heparin Anti-Xa Level ABG pH POC ABG pO2 ABG pO2 ABG HCO3 ABG O2 Saturation ABG Base Excess POC ABG pCO2 ABG Hemoglobin ABG Oxyhemoglobin ABG Sodium ABG Chloride ABG Glucose Oxyhemoglobin Sodium Potassium Chloride Carbon Dioxide BUN Creatinine Glucose POC Glucose 137 H 122 H 116 H Lactic Acid Calcium Phosphorus Magnesium AST ALT Lactate Dehydrogenase Total Bilirubin Direct Bilirubin CK-MB (CK-2) C-Reactive Protein NT-Pro-B Natriuret Pep Total Protein Albumin Arterial Blood Glucose Urine WBC (Auto) Urine Creatinine 03/12/20 03/13/20 23:17 05:47 WBC RBC Hgb Hct MCHC RDW MCV MCH Lymph % (Auto) Hood % (Auto) Hood # Eos # Lymph # (Auto) Hood # (Auto) Eos # (Auto) Seg Neutrophils % Seg Neuts % (Manual) Baso # (Auto) Lymphocytes % (Manual) Monocytes % (Manual) Eosinophils % (Manual) Basophils % (Manual) Seg Neutrophils # Seg Neutrophils # Man Lymphocytes # (Manual) Monocytes # (Manual) Eosinophils # (Manual) Nucleated RBC % Basophils # (Manual) PT INR APTT Heparin Anti-Xa Level ABG pH POC ABG pO2 ABG pO2 ABG HCO3 ABG O2 Saturation ABG Base Excess POC ABG pCO2 ABG Hemoglobin ABG Oxyhemoglobin ABG Sodium ABG Chloride ABG Glucose Oxyhemoglobin Sodium Potassium Chloride Carbon Dioxide BUN Creatinine Glucose POC Glucose 118 H 142 H Lactic Acid Calcium Phosphorus Magnesium AST ALT Lactate Dehydrogenase Total Bilirubin Direct Bilirubin CK-MB (CK-2) C-Reactive Protein NT-Pro-B Natriuret Pep Total Protein Albumin Arterial Blood Glucose Urine WBC (Auto) Urine Creatinine Allied health notes reviewed: RT
--- NOTE | 2020-03-13 12:04 | Progress Note ---
Assessment and Plan - Patient Problems (1) Paroxysmal atrial fibrillation Current Visit: Yes Status: Acute Plan to address problem: Continue current management of atrial fibrillation on a rate control strategy and oral anticoagulation, stable cardiac status. Subjective Date of service: 03/13/20 Principal diagnosis: Ac hypoxemic resp failure; Pneumonia; PUI COVID-19; CHF; COPD; HTN Interval history: Patient is awake, on trach vent. Atrial fibrillation at 115. Objective Vital Signs Temp Pulse Pulse Resp BP Pulse Ox Pulse Ox 03/13/20 10:01 119 H 19 102/74 100 03/13/20 09:04 117 H 109/74 100 03/13/20 09:00 124 H 16 109/74 100 03/13/20 08:00 97.8 F 116 H 15 101/79 100 03/13/20 07:01 114 H 13 104/82 100 03/13/20 06:00 116 H 16 96/78 100 03/13/20 05:01 107 H 16 104/77 100 03/13/20 04:49 100 03/13/20 04:47 118 H 108/86 100 03/13/20 04:00 134 H 16 108/86 100 03/13/20 03:39 101 H 03/13/20 03:23 97.4 F L 03/13/20 03:01 109 H 17 102/77 99 03/13/20 02:01 116 H 17 111/80 97 03/13/20 01:01 121 H 18 111/80 100 03/13/20 00:37 125 H 03/13/20 00:01 115 H 19 92/55 100 03/12/20 23:58 122 H 107/68 100 03/12/20 23:55 97.6 F 03/12/20 23:00 111 H 16 107/68 100 03/12/20 22:00 108 H 18 104/71 98 03/12/20 21:12 100 03/12/20 21:11 100 03/12/20 21:01 103 H 14 109/75 99 03/12/20 20:49 125 H 109/75 100 03/12/20 20:37 20 03/12/20 20:16 97.3 F L 03/12/20 20:00 102 H 20 83/62 100 03/12/20 19:37 18 03/12/20 19:19 106 H 03/12/20 19:00 101 H 14 95/65 100 03/12/20 18:01 110 H 16 93/70 100 03/12/20 17:01 121 H 19 88/61 99 03/12/20 16:45 108 H 89/67 100 03/12/20 16:26 100 H 89/67 03/12/20 16:01 121 H 18 89/67 100 03/12/20 16:00 98.6 F 107 H 120 H 24 96 03/12/20 15:00 123 H 16 85/65 100 03/12/20 14:01 127 H 19 95/68 98 03/12/20 13:01 106 H 14 81/61 100 03/12/20 12:14 113 H 97/70 100 - Physical Examination General: Other (s/p trach) HEENT: Positive: PERRL Neck: Positive: neck supple, Other (s/p trach) Cardiac: Positive: irregularly irregular Lungs: Positive: Decreased Breath Sounds Neuro: Positive: Weakness Abdomen: Positive: Soft Skin: Positive: Clear Extremities: Absent: edema - Allied health notes Allied health notes reviewed: RT
--- NOTE | 2020-03-13 12:13 | Progress Note ---
Subjective Date of service: 03/13/20 Principal diagnosis: Ac hypoxemic resp failure; Pneumonia; PUI COVID-19; CHF; COPD; HTN Interval history: Assessment and plan: -Acute hypoxemic respiratory failure; Patient has tracheostomy on vent, very difficult to wean Continue nebulizers, , trach care Wean off ventilator as tolerated Pulmonary critical following --Acute exacerbation of COPD; Patient is currently on ventilatory support Continue nebulizers --Ischemic cardiomyopathy Cardiology is following, status post cardiac catheterization on 01/22/2020; Coronary artery disease status post PCI and stent to the LAD Continue current cardiac medications --H/o CAD [[facility] 12/2018 in-stent restenosis] Patient is stable on current cardiac medications --Paroxysmal atrial fibrillation; Now rate controlled, Stable on amiodarone and Eliquis --Acute on chronic combined systolic and diastolic congestive heart failure Ischemic cardiomyopathy left ventricular ejection fraction 40 to 45% --Left lower lobe PE; 12/10/2019 CTA Continue Eliquis, supportive care --Acute right lower extremity DVT; on Eliquis --Bilateral multifocal pneumonia/community-acquired Completed antibiotics, improved --Severe sepsis/bilateral pneumonia: Completed antibiotics COVID-19 test; 11/24/2019; negative 11/26/2019; negative 12/29/2019: Negative --Hypertensive emergency; present on admission Reasonable blood pressures, continue current antihypertensives As needed medications --History of alcohol abuse/alcohol withdrawal; Off CIWA protocol, --Oropharyngeal dysphagia; status post PEG placement Continue PEG feeds per protocol --History of partial small bowel obstruction; resolved --Obesity; BMI 34.7 Patient needs weight reduction when medically stable --Severe protein calorie malnutrition/hypoalbuminemia Nutrition supplements, dietitian following, PEG feeds --DVT prophylaxis;Eliquis --Full CODE STATUS DC planning per case management/LTAC versus home when medically stable Patient is unable to wean, Multiple social issues Unable to place LTAC We will closely monitor the patient and adjust the management as needed Wean as tolerated and extubate 02/22. Awake and alert on vent. Vitals stable. 02/23. Awake and alert on vent. Requests for ice. Vitals stable 02/24. Trach to vent. Continue rate control with metoprolol and digoxin. Amiodarone discontinued due to elevated liver transaminases. Eliquis for anticoagulation of acute PE/DVT. Transferred to [facility] 02/25. Seen in IMCU. Requests for ice. RN to provide a cube of ice. Vitals stable. 02/26. No change in medical condition. Slightly tachy this AM. Will monitor. 02/27. Cardiology started him on a beta hebert. Still on vent 02/28. Discharge planning as per sports book board attendant. Still on vent. Tachycardia noted. 03/01/2020; patient is tachycardic, still on the vent. Discharge management as per sports book board attendant. 03/02/2020; patient is on a vent and trach. Discharge is per sports book board attendant. 03/03/2012; patient is on vent and trach patient is alert and oriented. 03/04/2020; patient is on vent and trach, patient is alert. 03/05/2020; patient is on vent and trach, patient is alert. 03/06/2020 tracheostomy on vent , patient is alert, possible LTAC placement 03/08/2020 remains on ventilatory support; wean off the vent, pending LTAC placement 03/09/2020; clinically no change, tracheostomy on ventilatory support, unable to wean, awaiting LTAC placement, social issues 03/10/2020; clinically no change; patient alert and awake; 03/11/2020; patient is more alert and awake asking for some water, remains on ventilatory support, awaiting LTAC placement 03/12/2020; clinically no change, tracheostomy on ventilatory support, unable to wean, awaiting LTAC placement 03/13 patient on vent via tracheostomy, alert and oriented and offers no complaints except some neck pain. Denies any chest pain or shortness of breath or palpitations. All interdisciplinary notes reviewed Brief history; Patient is a 64-year-old male with known history of hypertension, COPD, history of coronary artery disease, CHF with ejection fraction of 20 to 25% 2019 was admitted through emergency room with worsening shortness of breath Patient was found to be hypoxic and in respiratory distress. Patient was placed on CPAP in route to the hospital. Patient remained hypoxic on CPAP BiPAP ,subsequently was intubated, vent dependent. Unable to wean subsequently had tracheostomy and PEG placement, patient also has acute PE DVT and paroxysmal atrial fibrillation on chronic anticoagulation. Patient is vent dependent, social issues, awaiting LTAC placement Objective - Constitutional Vitals: Vital Signs - 12hr 03/13/20 03/13/20 03/13/20 00:37 01:01 02:01 Temperature Pulse Rate 125 H 121 H 116 H Respiratory 18 17 Rate Blood Pressure 111/80 111/80 O2 Sat by Pulse 100 97 Oximetry O2 Sat by Pulse Oximetry [ Assessment] 03/13/20 03/13/20 03/13/20 03:01 03:23 03:39 Temperature 97.4 F L Pulse Rate 109 H 101 H Respiratory 17 Rate Blood Pressure 102/77 O2 Sat by Pulse 99 Oximetry O2 Sat by Pulse Oximetry [ Assessment] 03/13/20 03/13/20 03/13/20 04:00 04:47 04:49 Temperature Pulse Rate 134 H 118 H Respiratory 16 Rate Blood Pressure 108/86 108/86 O2 Sat by Pulse 100 100 Oximetry O2 Sat by Pulse 100 Oximetry [ Assessment] 03/13/20 03/13/20 03/13/20 05:01 06:00 07:01 Temperature Pulse Rate 107 H 116 H 114 H Respiratory 16 16 13 Rate Blood Pressure 104/77 96/78 104/82 O2 Sat by Pulse 100 100 100 Oximetry O2 Sat by Pulse Oximetry [ Assessment] 03/13/20 03/13/20 03/13/20 08:00 09:00 09:04 Temperature 97.8 F Pulse Rate 116 H 124 H 117 H Respiratory 15 16 Rate Blood Pressure 101/79 109/74 109/74 O2 Sat by Pulse 100 100 100 Oximetry O2 Sat by Pulse Oximetry [ Assessment] 03/13/20 10:01 Temperature Pulse Rate 119 H Respiratory 19 Rate Blood Pressure 102/74 O2 Sat by Pulse 100 Oximetry O2 Sat by Pulse Oximetry [ Assessment] - Labs CBC & Chem 7: 03/09/20 06:32 03/09/20 06:32 Labs: Abnormal lab results 03/12/20 03/12/20 03/13/20 Range/Units 17:40 23:17 05:47 POC Glucose 116 H 118 H 142 H (70-105) mg/dL 03/13/20 Range/Units 11:35 POC Glucose 146 H (70-105) mg/dL HEART Score - HEART Score Troponin: Troponin T < 0.010 ng/mL (0.00-0.029) 01/19/20 01:35
[2020-03-13] MEDS: DIGOXIN 0.125 MG TAB PO SCH (16:22)
[2020-03-13] MEDS: TAMSULOSIN 0.4 MG CAP PO SCH (23:23)
[2020-03-13] MEDS: POLYETHYLENE GLYCOL 3350 17 GM POWDER PO SCH (23:24)
[2020-03-13] MEDS: ACETAMINOPHEN 325 MG/10.15 ML ORAL LIQD UNIT DOSE FEEDTUBE PRN (23:24)
[2020-03-14] MEDS: ACETAMINOPHEN 325 MG/10.15 ML ORAL LIQD UNIT DOSE FEEDTUBE PRN ×2 (04:38→13:49)
[2020-03-14] MEDS: INSULIN REGULAR, HUMAN 100 UNIT/ML 3ML VIAL SUB-Q SCH ×3 (07:37→17:50)
[2020-03-14] MEDS: QUEtiapine 100 MG TAB PO SCH ×2 (09:57→21:43)
[2020-03-14] MEDS: DOCUSATE SODIUM 100 MG/10 ML ORAL LIQD FEEDTUBE SCH ×2 (09:57→21:40)
[2020-03-14] MEDS: GLYCOPYRROLATE 2 MG TAB PO SCH ×3 (09:57→20:49)
[2020-03-14] MEDS: METOPROLOL TARTRATE 25 MG TAB FEEDTUBE SCH ×2 (09:58→21:42)
[2020-03-14] MEDS: CLOPIDOGREL 75 MG TAB PO SCH (09:58)
[2020-03-14] MEDS: MIDODRINE 5 MG TAB PO SCH ×3 (09:58→16:55)
[2020-03-14] MEDS: APIXABAN 5 MG TAB PO SCH ×2 (09:58→21:40)
[2020-03-14] MEDS: LANSOPRAZOLE 30 MG SOLUTAB FEEDTUBE SCH (10:00)
[2020-03-14] MEDS ORDERED: GLYCOPYRROLATE 1 MG TAB PO ONE (10:00)
--- NOTE | 2020-03-14 10:13 | Progress Note ---
Assessment and Plan Assessment and plan: --Ischemic cardiomyopathy Cardiology is following, status post cardiac catheterization on 01/22/2020; Co ronary artery disease status post PCI and stent to the LAD Continue current cardiac medications --Acute on chronic hypoxemic respiratory failure; Patient has tracheostomy on vent Continue nebulizers, , trach care Wean off ventilator as tolerated Pulmonary critical following --Acute exacerbation of COPD; Patient is currently on ventilatory support Continue nebulizers --Left lower lobe PE; Continue Eliquis, ventilatory support --Acute right lower extremity DVT; Patient is on Eliquis --Bilateral multifocal pneumonia/community-acquired Completed antibiotics, improved --Severe sepsis/bilateral pneumonia: Completed antibiotics COVID-19 test; 11/24/2019; negative 11/26/2019; negative 12/29/2019: Negative --Paroxysmal atrial fibrillation; Now rate controlled, Stable on amiodarone and Eliquis --Acute on chronic combined systolic and diastolic congestive heart failure Ischemic cardiomyopathy left ventricular ejection fraction 40 to 45% --H/o CAD [[facility] 12/2018 in-stent restenosis] Patient is stable on current cardiac medications --Hypertensive emergency; present on admission Reasonable blood pressures, continue current antihypertensives As needed medications --History of alcohol abuse/alcohol withdrawal; Was on CIWA protocol, now stable --Oropharyngeal dysphagia; status post PEG placement Continue PEG feeds per protocol --History of partial small bowel obstruction; resolved Surgery evaluated. --Obesity; BMI 34.7 Patient needs weight reduction when medically stable --Severe protein calorie malnutrition/hypoalbuminemia Nutrition supplements, dietitian following, PEG feeds --DVT prophylaxis;Eliquis --Full CODE STATUS 01/05; Pt stable. NGT output 650cc over 24 hours, bilious. No f/c, WBC within normal limits. cont NG suction and cont to hold TF 01/06: Abs series - mild improvement in small bowel distension in mid abdomen, normal gas/stool pattern in colon. NGT in duodenum. Continue to hold tube feeding, maintain NG tube with low intermittent suction. Patient's was updated by phone. Continue to provide supportive care and monitor clinically. 01/07: +BMs today and NGT/PEG output appears more gastric today. Plan to clamp NGT, if tolerates start TF from tomorrow. cont supportive care. 01/08; Gastric output decreased over last 24 hours. NGT has been clamped x 24 hours. plan to dc NGT and to start TTF via PEG - vital HF @10cc/hr 01/09: clinically stable, tolerating TF. monitor BMP, wean off from vent as tolerated clinically stable, on TF. wean off vent as tolerated 01/11: wean off from vent, cont to monitor, on TF 01/12: wean off from vent, cont to monitor, on TF. need placement - unfunded 01/13; remains on ventilatory support, unable to wean, DC planning possible LTAC, unfunded 01/14; patient of ventilatory support, T-piece tracheostomy on oxygen, LTAC placement per case management 01/16; tracheostomy, patient on full ventilatory support, wean off vent support as tolerated, pending LTAC placement, social financial issues 01/17; awaiting LTAC placement, insurance and financial issues 01/18; patient tracheostomy remains on ventilatory support 01/19; wean off ventilator as tolerated 01/20; remains on ventilatory support, patient complains of intermittent chest pain, cardiology recommend left heart catheterization tomorrow 01/22/2020. Patient for left heart catheterization per cardiology. Patient remains on AC mode ventilation rate 12, tidal volume 450, FiO2 30% and PEEP of 6. Continue tracheostomy care, airway management and secretion control. 01/23/2020. Cardiac catheterization completed yesterday revealed widely patent previous LAD stent with mild nonobstructive atherosclerosis of the right mid coronary artery and rest of the coronary system was without significant atherosclerosis. The left ventricle ejection fraction was mildly impaired at 40 to 45%. There was some hypokinesis of the basal inferior wall suggestive of previous or recent infarct. Continue GDMT for coronary artery disease including beta blockers, topical nitrates, statin and Plavix. Continue Eliquis for paroxysmal atrial fibrillation and PE. Continue diuresis with Lasix and follow electrolytes closely. Continue Robinul and scopolamine for secretion control and daily SBT per pulmonary. Also, continue bronchodilators and routine trach care/airway management. T-piece trials per pulmonary as tolerated. 01/24/2020. Recent cardiac catheterization has documented widely patent left anterior descending artery stent with minimal nonobstructive diffuse coronary artery disease in the rest of the coronary arteries. Evidence of ischemic cardiomyopathy with inferior wall hypokinesis. Continue with guideline directed medical therapy. Continue Robinul and scopolamine for secretion control and daily SBT per pulmonary. Continue bronchodilators and routine trach care/airway management. T-piece trials per pulmonary as tolerated. 01/25/2020. Continue with guideline directed medical therapy for systolic heart failure. Cardiac catheterization revealed evidence of ischemic cardiomyopathy with inferior wall hypokinesis (EF 40-45%). Patient currently on T-piece with oxygen 10 L/min FiO2 40%. Continue Robinul and scopolamine for secretion control. Continue bronchodilators and routine trach care/airway management. 02/03: Mental status more improved, agree with Reglan will change to IV scheduled for two days, no new vomiting. Pseudomonas A in Sputum. 02/04: Clinical improving, amiodarone discontinued due to LFTs, continue Metoprolol.d/w GI, started on Golytely to clear impaction. Started on dialy Miralax. 02/05: Continue supportive care. Noted bowel movement, continue bowel regimen 02/06: Cardiology input noted beta-hebert increased for better suppression of atrial fibrillation. Continue to monitor, no other evidence of nausea vomiting noted. Discussed with respiratory therapist will be continued on weaning protocol with pressure support today. 02/07: Patient successfully weaned off the ventilator, No new complaints, c ontinue monitoring, BM noted, Discussed with pulmonary, 02/08; tracheostomy on T-piece, patient is more alert and awake today 02/09; clinically no change, tracheostomy on vent 02/10; tracheostomy on vent, full CODE STATUS, poor prognosis, 02/11; clinically no change, remains on ventilatory support, full CODE STATUS, discussed with spouse Ms. Paulette Araiza extensively today 02/12. Patient resting comfortably no change on vent with tracheostomy. Still unable to wean. Some increased crackles today. 02/13: Still unable to wean from the vent. Overall prognosis remains extremely poor. 02/14; remains critically ill, tracheostomy on vent, unable to wean, poor prognosis, full CODE STATUS 02/15; patient is more alert and awake today, chronic tracheostomy on T-piece, continue current management DC planning per case management. Disposition very difficult due to lack of resources and insurance 02/17/2020. Patient remains on mechanical ventilation and tolerating PSV trials. Patient currently with PSV 10/6 at FiO2 of 30%. 02/18/2020. Patient currently on PSV 10/6 with FiO2 of 40%. 40% T-piece trial was attempted but patient unable to tolerate due to saturations dropping into the 80s and heart rate in the 140s. Therefore, patient placed back on PSV. Continue anticoagulation with Eliquis. Continue secretion control with Robinul and scopolamine. Continue rate control with metoprolol and digoxin. 02/19/2020. Patient currently on PSV 10/6 with FiO2 of 30%. T-piece trial attempted yesterday but patient did not tolerate. Continue T-piece trials as tolerated. Continue anticoagulation with Eliquis. Continue secretion control with Robinul and scopolamine. Continue rate control with metoprolol and digoxin. Continue to follow with case management with regards to discharge pl anning. 02/20/2020. Patient continues to tolerate PSV 10/6. Continue rate control with metoprolol and digoxin. Amiodarone discontinued due to elevated liver transaminases. Eliquis for anticoagulation acute PE/DVT. 02/21/2020. Patient continues to tolerate PSV 10/6 at FiO2 of 30%. Continue ra te control with metoprolol and digoxin. Amiodarone discontinued due to elevated liver transaminases. Eliquis for anticoagulation acute PE/DVT. 02/22/2020. Patient continues to tolerate PSV 10/6 at FiO2 of 30%. Continue rate control with metoprolol and digoxin. Amiodarone discontinued due to el evated liver transaminases. Eliquis for anticoagulation acute PE/DVT. 02/22. Awake and alert on vent. Vitals stable. 02/23. Awake and alert on vent. Requests for ice. Vitals stable 02/24. Trach to vent. Continue rate control with metoprolol and digoxin. Amiodarone discontinued due to elevated liver transaminases. Eliquis for anticoagulation of acute PE/DVT. Transferred to [facility] 02/25. Seen in [facility]. Requests for ice. RN to provide a cube of ice. Vitals stable. 02/26. No change in medical condition. Slightly tachy this AM. Will monitor. 02/27. Cardiology started him on a beta hebert. Still on vent 02/28. Discharge planning as per bacteriology teacher. Still on vent. Tachycardia noted. 03/01/2020; patient is tachycardic, still on the vent. Discharge management as per bacteriology teacher. 03/02/2020; patient is on a vent and trach. Discharge is per bacteriology teacher. 03/03/2012; patient is on vent and trach patient is alert and oriented. 03/04/2020; patient is on vent and trach, patient is alert. 03/05/2020; patient is on vent and trach, patient is alert. 03/06/2020 tracheostomy on vent , patient is alert, possible LTAC placement 03/08/2020 remains on ventilatory support; wean off the vent, pending LTAC placement 03/09/2020; clinically no change, tracheostomy on ventilatory support, unable to wean, awaiting LTAC placement, social issues 03/10/2020; clinically no change; patient alert and awake; 03/11/2020; patient is more alert and awake asking for some water, remains on ventilatory support, awaiting LTAC placement 03/12/2020; clinically no change, tracheostomy on ventilatory support, unable to wean, awaiting LTAC placement 03/13 patient on vent via tracheostomy, alert and oriented and offers no complaints except some neck pain. Denies any chest pain or shortness of breath or palpitations. All interdisciplinary notes reviewed 03/14/2020. Patient currently on AC mode ventilation rate of 12 tidal volume 450 FiO2 30% and a PEEP of 6. Patient is s/p tracheostomy on ventilatory support awaiting LTAC placement. The high probability of a clinically significant, sudden or life threatening deterioration of the [Respiratory, cardiovascular & neurological] system(s) required my full and direct attention, intervention and personal management. The aggregate critical care time was [32] minutes without overlap. Time includes spent on [x] Data Review and interpretation [x] Patient assessment and monitoring of vital signs [x] Documentation [x] Medication orders and management History Interval history: Patient is a 64-year-old male with known history of hypertension, COPD, history of coronary artery disease, CHF with ejection fraction of 20 to 25% 2019 was admitted through emergency room with worsening shortness of breath Patient was found to be hypoxic and in respiratory distress. Patient was placed on CPAP in route to the hospital. Patient remained hypoxic on CPAP BiPAP ,subsequently was intubated. Patient also had bilateral multifocal pneumonia managed appropriately with antibiotics sputum cultures positive for Pseudomonas, ID treated with cefepime and Vanco. His hospital course became complicated with acute PE, DVT, paroxysmal atrial fib - placed on chronic anticoagulation. Patient was difficult to wean off, status post trach and PEG, remains on mechanical ventilation with trach tube. He then developed partial small bowel obstruction evaluated by general surgeon symptom improved with medical Mx, patient was briefly weaned off ventilatory support however, was in respiratory failure requiring full ventilatory support. Cardiac catheterization on 01/22/2020. Patient remains on mechanical ventilatory support. Patients still with elevated heart rate of Afib with RVR continue amiodarone and metoprolol. LVEF 40 to 45% on Eliquis FOR THE Acute PE/DVT. Partial SBO vs ileus- KUB is negative. Brief history; Patient is a 64-year-old male with known history of hypertension, COPD, history of coronary artery disease, CHF with ejection fraction of 20 to 25% 2019 was admitted through emergency room with worsening shortness of breath Patient was found to be hypoxic and in respiratory distress. Patient was placed on CPAP in route to the hospital. Patient remained hypoxic on CPAP BiPAP ,subsequently was intubated, vent dependent. Unable to wean subsequently had tracheostomy and PEG placement, patient also has acute PE DVT and paroxysmal atrial fibrillation on chronic anticoagulation. Patient is vent dependent, social issues, awaiting LTAC placement Hospitalist Physical - Constitutional Vitals: Temp Pulse Resp BP Pulse Ox 97.9 F 127 H 22 95/76 98 03/14/20 08:00 03/14/20 09:58 03/14/20 06:01 03/14/20 09:58 03/14/20 08:35 General appearance: Present: no acute distress, well-nourished, other (Tracheostomy on vent) - EENT Eyes: Present: PERRL, EOM intact ENT: hearing intact, clear oral mucosa, dentition normal - Neck Neck: Present: supple, normal ROM - Respiratory Respiratory effort: normal Respiratory: bilateral: CTA - Cardiovascular Rhythm: regular Heart Sounds: Present: S1 & S2. Absent: gallop, rub - Extremities Extremities: no ischemia, No edema, Full ROM - Abdominal General gastrointestinal: soft, non-tender, non-distended, normal bowel sounds - Integumentary Integumentary: Present: clear, warm, dry - Neurologic Neurologic: CNII-XII intact, moves all extremities HEART Score - HEART Score Troponin: Troponin T < 0.010 ng/mL (0.00-0.029) 01/19/20 01:35 Results - Labs CBC & Chem 7: 03/09/20 06:32 03/09/20 06:32 Labs: Laboratory Last Values WBC 6.1 K/mm3 (4.5-11.0) 03/09/20 06:32 RBC 3.98 M/mm3 (3.65-5.03) 03/09/20 06:32 Hgb 9.8 gm/dl (11.8-15.2) L 03/09/20 06:32 Hct 31.6 % (35.5-45.6) L 03/09/20 06:32 MCV 80 fl (84-94) L 03/09/20 06:32 MCH 25 pg (28-32) L 03/09/20 06:32 MCHC 31 % (32-34) L 03/09/20 06:32 RDW 23.1 % (13.2-15.2) H 03/09/20 06:32 Plt Count 200 K/mm3 (140-440) 03/09/20 06:32 Lymph % (Auto) 35.1 % (13.4-35.0) H 03/09/20 06:32 [place] % (Auto) 11.4 % (0.0-7.3) H 03/09/20 06:32 Eos % (Auto) 2.9 % (0.0-4.3) 03/09/20 06:32 Baso % (Auto) 0.6 % (0.0-1.8) 03/09/20 06:32 Lymph # (Auto) 2.1 K/mm3 (1.2-5.4) 03/09/20 06:32 [place] # (Auto) 0.7 K/mm3 (0.0-0.8) 03/09/20 06:32 Eos # (Auto) 0.2 K/mm3 (0.0-0.4) 03/09/20 06:32 Baso # (Auto) 0.0 K/mm3 (0.0-0.1) 03/09/20 06:32 Add Manual Diff Complete 02/15/20 06:59 Total Counted 100 02/15/20 06:59 Seg Neutrophils % 50.0 % (40.0-70.0) 03/09/20 06:32 Seg Neuts % (Manual) 58.0 % (40.0-70.0) 02/15/20 06:59 Band Neutrophils % 0 % 02/15/20 06:59 Lymphocytes % (Manual) 34.0 % (13.4-35.0) 02/15/20 06:59 Reactive Lymphs % (Man) 1.0 % 02/15/20 06:59 Monocytes % (Manual) 4.0 % (0.0-7.3) 02/15/20 06:59 Eosinophils % (Manual) 0 % (0.0-4.3) 02/15/20 06:59 Basophils % (Manual) 2.0 % (0.0-1.8) H 02/15/20 06:59 Metamyelocytes % 1.0 % 02/15/20 06:59 Myelocytes % 0 % 02/15/20 06:59 Promyelocytes % 0 % 02/15/20 06:59 Blast Cells % 0 % 02/15/20 06:59 Nucleated RBC % 1.0 % (0.0-0.9) H 02/15/20 06:59 Seg Neutrophils # 3.0 K/mm3 (1.8-7.7) 03/09/20 06:32 Seg Neutrophils # Man 5.9 K/mm3 (1.8-7.7) 02/15/20 06:59 Band Neutrophils # 0.0 K/mm3 02/15/20 06:59 Lymphocytes # (Manual) 3.5 K/mm3 (1.2-5.4) 02/15/20 06:59 Abs React Lymphs (Man) 0.1 K/mm3 02/15/20 06:59 Monocytes # (Manual) 0.4 K/mm3 (0.0-0.8) 02/15/20 06:59 Eosinophils # (Manual) 0.0 K/mm3 (0.0-0.4) 02/15/20 06:59 Basophils # (Manual) 0.2 K/mm3 (0.0-0.1) H 02/15/20 06:59 Metamyelocytes # 0.1 K/mm3 02/15/20 06:59 Myelocytes # 0.0 K/mm3 02/15/20 06:59 Promyelocytes # 0.0 K/mm3 02/15/20 06:59 Blast Cells # 0.0 K/mm3 02/15/20 06:59 WBC Morphology Not Reportable 02/15/20 06:59 Hypersegmented Neuts Not Reportable 02/15/20 06:59 Hyposegmented Neuts Not Reportable 02/15/20 06:59 Hypogranular Neuts Not Reportable 02/15/20 06:59 Smudge Cells Not Reportable 02/15/20 06:59 Toxic Granulation Not Reportable 02/15/20 06:59 Toxic Vacuolation Not Reportable 02/15/20 06:59 Dohle Bodies Not Reportable 02/15/20 06:59 Pelger-Huet Anomaly Not Reportable 02/15/20 06:59 Hector Rods Not Reportable 02/15/20 06:59 Platelet Estimate Consistent w auto 02/15/20 06:59 Clumped Platelets Not Reportable 02/15/20 06:59 Plt Clumps, EDTA Not Reportable 02/15/20 06:59 Large Platelets Not Reportable 02/15/20 06:59 Giant Platelets Not Reportable 02/15/20 06:59 Platelet Satelliting Not Reportable 02/15/20 06:59 Plt Morphology Comment Giant platelets 02/15/20 06:59 RBC Morphology Not Reportable 02/15/20 06:59 Dimorphic RBCs Not Reportable 02/15/20 06:59 Polychromasia Not Reportable 02/15/20 06:59 Hypochromasia 1+ 02/15/20 06:59 Poikilocytosis Few 02/15/20 06:59 Anisocytosis 1+ 02/15/20 06:59 Microcytosis Not Reportable 02/15/20 06:59 Macrocytosis Not Reportable 02/15/20 06:59 Spherocytes Not Reportable 02/15/20 06:59 Pappenheimer Bodies Not Reportable 02/15/20 06:59 Sickle Cells Not Reportable 02/15/20 06:59 Target Cells 1+ 02/15/20 06:59 Tear Drop Cells Few 02/15/20 06:59 Ovalocytes Not Reportable 02/15/20 06:59 Helmet Cells Not Reportable 02/15/20 06:59 [place] Bodies Not Reportable 02/15/20 06:59 [place] Rings Not Reportable 02/15/20 06:59 [place] Cells Not Reportable 02/15/20 06:59 Bite Cells Not Reportable 02/15/20 06:59 Crenated Cell Not Reportable 02/15/20 06:59 Elliptocytes Few 02/15/20 06:59 Acanthocytes (Spur) Not Reportable 02/15/20 06:59 Rouleaux Not Reportable 02/15/20 06:59 Hemoglobin C Crystals Not Reportable 02/15/20 06:59 Schistocytes Not Reportable 02/15/20 06:59 Malaria parasites Not Reportable 02/15/20 06:59 [place] Bodies Not Reportable 02/15/20 06:59 Hem Pathologist Commnt No 02/15/20 06:59 PT 27.0 Sec. (12.2-14.9) H 02/07/20 15:03 INR 2.46 (0.87-1.13) H 02/07/20 15:03 APTT 31.5 Sec. (24.2-36.6) 01/22/20 09:58 Heparin Anti-Xa Level 1.34 U.I./ml (0.3-0.7) H 01/22/20 04:45 ABG pH 7.454 (7.320-7.450) H 03/12/20 04:45 POC ABG pCO2 45.6 mmHg (32.0-48.0) 03/12/20 04:45 ABG pCO2 47.8 mm Hg 02/20/20 06:45 POC ABG pO2 69.2 mmHg (83-108) L 03/12/20 04:45 ABG pO2 88.7 mm Hg (80.0-90.0) 02/20/20 06:45 POC ABG HCO3 31.3 03/12/20 04:45 ABG HCO3 33.3 mmol/L (20.0-26.0) H 02/20/20 06:45 ABG O2 Saturation 97.2 % (95.0-99.0) 02/20/20 06:45 ABG O2 Content 13.3 (0.0-44) 02/20/20 06:45 POC ABG Base Excess 6.5 03/12/20 04:45 ABG Base Excess 8.4 mmol/L (-2.0-3.0) H 02/20/20 06:45 ABG Hemoglobin 11.2 (12.0-17.5) L 03/12/20 04:45 ABG Oxyhemoglobin 84 (94-98) L 12/22/19 03:22 ABG Carboxyhemoglobin 2.9 % (0.0-5.0) 02/20/20 06:45 ABG Methemoglobin 0.4 % (0.0-1.5) 02/20/20 06:45 ABG Sodium 134.7 mmol/L (136.0-145.0) L 03/12/20 04:45 ABG Potassium 3.9 mmol/L (3.40-4.50) 03/12/20 04:45 ABG Chloride 98.0 mmol/L (98-107) 03/12/20 04:45 ABG Glucose 151 mg/dL (65-95) H 03/12/20 04:45 Oxyhemoglobin 94.1 % (95.0-99.0) L 02/20/20 06:45 Carboxyhemoglobin 0.7 (0.5-1.5) 12/22/19 03:22 FiO2 30 03/12/20 04:45 Sodium 136 mmol/L (137-145) L 03/09/20 06:32 Potassium 4.2 mmol/L (3.6-5.0) 03/09/20 06:32 Chloride 98.9 mmol/L (98-107) 03/09/20 06:32 Carbon Dioxide 29 mmol/L (22-30) 03/09/20 06:32 Anion Gap 12 mmol/L 03/09/20 06:32 BUN 25 mg/dL (9-20) H 03/09/20 06:32 Creatinine 0.6 mg/dL (0.8-1.3) L 03/09/20 06:32 Estimated GFR > 60 ml/min 03/09/20 06:32 BUN/Creatinine Ratio 42 % 03/09/20 06:32 Glucose 170 mg/dL (75-100) H 03/09/20 06:32 POC Glucose 159 mg/dL (70-105) H 03/14/20 05:04 Lactic Acid 1.60 mmol/L (0.7-2.0) 02/03/20 12:49 Calcium 8.9 mg/dL (8.4-10.2) 03/09/20 06:32 Ferritin 84.4 ng/mL (30.0-300.0) 11/24/19 04:53 Phosphorus 4.10 mg/dL (2.5-4.5) 01/31/20 19:24 Magnesium 2.40 mg/dL (1.7-2.3) H 02/10/20 07:40 Total Bilirubin 1.30 mg/dL (0.1-1.2) H 02/08/20 19:00 Direct Bilirubin 0.9 mg/dL (0-0.2) H 02/08/20 19:00 Indirect Bilirubin 0.4 mg/dL 02/08/20 19:00 Total Creatine Kinase 141 units/L (55-170) 11/24/19 02:53 CK-MB (CK-2) 4.3 ng/mL (0.0-4.0) H 11/24/19 02:53 AST 309 units/L (5-40) H 02/08/20 19:00 ALT 650 units/L (7-56) H 02/08/20 19:00 CK-MB (CK-2) Rel Index 3.0 (0-4) 11/24/19 02:53 Alkaline Phosphatase 109 units/L (35-129) 02/08/20 19:00 C-Reactive Protein 8.50 mg/dL (0.00-1.30) H 12/01/19 12:16 Ammonia 35.0 umol/L (25-60) 02/03/20 12:49 Lactate Dehydrogenase 228 units/L (91-180) H 12/19/19 04:45 Troponin T < 0.010 ng/mL (0.00-0.029) 01/19/20 01:35 NT-Pro-B Natriuret Pep 3866 pg/mL (0-900) H 01/01/20 10:40 Total Protein 6.2 g/dL (6.3-8.2) L 02/08/20 19:00 Albumin 2.7 g/dL (3.9-5) L 02/08/20 19:00 Albumin/Globulin Ratio 0.8 % 02/08/20 19:00 Procalcitonin 0.44 ng/mL (<0.15) 02/03/20 12:49 Arterial Blood Glucose 151 mg/dL (65-95) H 03/12/20 04:45 Arterial Blood Ionized Calcium 4.8 mg/dL (4.6-5.3) 03/12/20 04:45 Urine Color [place] (Yellow) 02/26/20 07:50 Urine Turbidity Clear (Clear) 02/26/20 07:50 Urine pH 5.0 (5.0-7.0) 02/26/20 07:50 Ur Specific [place] 1.025 (1.003-1.030) 02/26/20 07:50 Urine Protein 30 mg/dl mg/dL (Negative) 02/26/20 07:50 Urine Glucose (UA) Neg mg/dL (Negative) 02/26/20 07:50 Urine Ketones Neg mg/dL (Negative) 02/26/20 07:50 Urine Blood Sm (Negative) 02/26/20 07:50 Urine Nitrite Neg (Negative) 02/26/20 07:50 Urine Bilirubin Neg (Negative) 02/26/20 07:50 Urine Urobilinogen 4.0 mg/dL (<2.0) 02/26/20 07:50 Ur Leukocyte Esterase Lg (Negative) 02/26/20 07:50 Urine WBC (Auto) > 182.0 /HPF (0.0-6.0) H 02/26/20 07:50 Urine RBC (Auto) 84.0 /HPF (0.0-6.0) 02/26/20 07:50 U Epithel Cells (Auto) 2.0 /HPF (0-13.0) 12/31/19 18:04 Urine Bacteria (Auto) 4+ /HPF (Negative) 02/26/20 07:50 Urine WBC Clumps 2+ /HPF 02/26/20 07:50 Urine Mucus 1+ /HPF 02/26/20 07:50 Urine Creatinine 57.4 mg/dL (0.1-20.0) H 01/31/20 Unknown Urine Sodium 59 mmol/L 01/31/20 Unknown Vancomycin Trough 14.2 ug/mL (5.0-20.0) 12/13/19 15:01 Coronavirus (PCR) Negative (Negative) 12/29/19 10:07 Hepatitis A IgM Ab Non-reactive (NonReactive) 02/05/20 06:37 Hep Bs Antigen Non-reactive (Negative) 02/05/20 06:37 Hep B Core IgM Ab Non-reactive (NonReactive) 02/05/20 06:37 Hepatitis C Antibody Non-reactive (NonReactive) 02/05/20 06:37 Blood Type O POSITIVE 01/21/20 13:00 Antibody Screen Negative 01/21/20 13:00 - Diagnostic Impressions Diagnostic Impressions: Echocardiogram 11/29/19 07:37 Transthoracic Echocardiogram Indication: CHF BP: 116/72 HR: 33 Conclusions *The study is technically limited due to poor acoustic windows. *Global left ventricular systolic function is normal. *The estimated ejection fraction is 50-55%. *Mild concentric left ventricular hypertrophy is observed. *There is trace of mitral regurgitation. *There is mild tricuspid regurgitation. Findings Procedure Info: The study quality is poor. The study is technically limited due to poor acoustic windows. The study is technically limited due to patient body habitus. Left Ventricle: The left ventricular chamber size is normal. Mild concentric left ventricular hypertrophy is observed. Global left ventricular systolic function is normal. The estimated ejection fraction is 50-55%. Left Atrium: The left atrial chamber size is normal. Right Ventricle: The right ventricular cavity size is normal. Right Atrium: The right atrial cavity size is normal. Aortic Valve: The aortic valve leaflets are moderately thickened. There is trace of aortic regurgitation. There is no evidence of aortic stenosis. Mitral Valve: The mitral valve leaflets are mildly thickened. There is trace of mitral regurgitation. There is no evidence of mitral stenosis. Tricuspid Valve: There is mild tricuspid regurgitation. No pulmonary hypertension is noted. Pulmonic Valve: There is trace pulmonic regurgitation. Pericardium: There is no pericardial effusion. Aorta: There is no dilatation of the aortic root. Venous: The inferior vena cava appears normal in size. Contrast: Definity was used to optimize study. Intravenous contrast was used to enhance endocardial border definition. Measurements Chambers 2D Name Value Normal Range Ao root diameter (2D) 3.4 cm (2 - 3.7) Aortic Valve Name Value Normal Range AV Vmax 0.98 m/sec - AV VTI 16.76 cm - AV peak gradient 3.83 mmHg - AV mean gradient 2.57 mmHg - LVOT diameter 3.11 cm - LVOT Vmax 0.68 m/sec - LVOT VTI 11.52 cm - LVOT peak gradient 1.84 mmHg - LVOT mean gradient 1.27 mmHg - SV LVOT 87.31 ml - MALOU (continuity Vmax) 5.24 cm2 - MALOU (continuity VTI) 5.21 cm2 - Tricuspid Valve Name Value Normal Range IVC diameter 2.24 cm (1.2 - 2.3) Hoffman/IV: Voiding Method Indwelling Catheter IV Catheter Type [Left INT / Saline Lock Antecubital] IV Catheter Type [Right INT / Saline Lock Forearm] IV Catheter Type [Right Hand] Peripheral IV IV Catheter Type [Right Upper INT / Saline Lock arm] IV Catheter Type [Left Upper Mid-line arm] IV Catheter Type [Left Forearm Peripheral IV ] IV Catheter Type [Left Hand] INT / Saline Lock IV Catheter Type [Left Wrist] INT / Saline Lock IV Catheter Type [Right Peripheral IV Antecubital] Active Medications - Current Medications Current Medications: Generic Name Dose Route Start Last Admin Trade Name Freq PRN Reason Stop Dose Admin Acetaminophen 650 mg 03/12/20 04:29 03/14/20 04:38 Acetaminophen 325 Mg/10.15 Ml Oral Liqd Unit Dose FEEDTUBE 650 mg Q6H PRN Administration Pain, Mild (1-3) Lipase/Protease/Amylase 1 each 01/09/20 12:01 03/07/20 12:56 Lipase 10,500/Protease 25,000/Amylase 43,750 (Units) Dr Lauren FEEDTUBE 1 each PRN PRN Administration For Clogged Feeding Tube Apixaban 5 mg 01/22/20 22:00 03/14/20 09:58 Eliquis PO 5 mg Q12HR CAR Administration Protocol Atorvastatin Calcium 40 mg 01/20/20 22:00 03/13/20 23:23 Lipitor PO 40 mg QHS CAR Administration Clopidogrel Bisulfate 75 mg 01/21/20 06:00 03/14/20 09:58 Plavix PO 75 mg QDAY CAR Administration Dextrose 50 ml 01/31/20 18:51 02/05/20 00:56 D50w (25gm) Syringe IV 50 ml Q30MIN PRN Administration Hypoglycemia Protocol Digoxin 0.125 mg 02/25/20 17:00 03/13/20 16:22 Lanoxin PO 0.125 mg DAILY@1700 CAR Administration Docusate Sodium 100 mg 02/22/20 10:00 03/14/20 09:57 Colace FEEDTUBE 100 mg BID CAR Administration Glycopyrrolate 2 mg 02/24/20 21:00 03/14/20 09:57 Glycopyrrolate PO Not Given TID CAR Haloperidol Lactate 5 mg 02/10/20 14:20 03/03/20 02:25 Haloperidol Lactate 5 Mg/1 Ml Inj IV 5 mg Q6H PRN Administration Agitation Hydrophilic Ointment 1 applic 01/17/20 15:26 02/24/20 23:20 Vaseline Lip Therapy TP 1 applic DIRECT PRN Administration Dry Lips Insulin Human Regular 0 unit 02/01/20 18:00 03/14/20 07:37 Humulin R SUB-Q 300 unit Q6H CAR Administration Protocol Lansoprazole 30 mg 02/05/20 16:00 03/14/20 10:00 Lansoprazole 30 Mg Solutab FEEDTUBE 30 mg QDAY CAR Administration Metoprolol Tartrate 5 mg 01/11/20 08:00 03/03/20 01:46 Metoprolol Tartrate 5 Mg/5 Ml Inj IV 5 mg Q6H PRN Administration SEE INSTRUCTIONS Metoprolol Tartrate 12.5 mg 02/28/20 12:00 03/14/20 09:58 Metoprolol FEEDTUBE 12.5 mg BID CAR Administration Midodrine 15 mg 02/04/20 16:00 03/14/20 09:58 Midodrine 5 Mg Tab PO 15 mg TID@0800,1200,1600 [facility] Administration Morphine Sulfate 2 mg 01/06/20 15:41 03/11/20 10:42 Morphine 2 Mg/1 Ml Inj IV 2 mg Q4H PRN Administration Pain, Moderate (4-6) Multi-Ingred Cream/Lotion/Oil/Oint 1 applic 02/01/20 15:52 Artificial Tears Ophth Oint OU Q4HR PRN Dry Eye(s) Nitroglycerin 0.4 mg 01/19/20 21:09 01/20/20 03:03 Nitrostat SL 0.4 mg .Q5MIN PRN Administration Chest Pain Ondansetron HCl 4 mg 01/05/20 14:37 03/11/20 10:42 Ondansetron 4 Mg/2 Ml Inj IV 4 mg Q8H PRN Administration Nausea And Vomiting Polyethylene Glycol 17 gm 12/04/19 22:00 03/13/20 23:24 Miralax 3350 PO 17 gm QHS CAR Administration Quetiapine Fumarate 300 mg 01/13/20 22:00 03/14/20 09:57 Quetiapine 100 Mg Tab PO 300 mg BID CAR Administration Simple Syrup 15 ml 01/09/20 12:01 Simple Syrup 15 Ml FEEDTUBE PRN PRN Hypoglycemia Simple Syrup 30 ml 01/09/20 12:01 Simple Syrup 15 Ml FEEDTUBE PRN PRN Hypoglycemia Sodium Bicarbonate 325 mg 01/09/20 12:01 03/07/20 12:56 Sodium Bicarbonate 325 Mg Tab FEEDTUBE 325 mg PRN PRN Administration For Clogged Feeding Tube Sodium Chloride 10 ml 11/24/19 10:00 03/14/20 09:59 Sodium Chloride Flush Syringe 10 Ml IV 10 ml BID CAR Administration Tamsulosin HCl 0.8 mg 12/20/19 22:00 03/13/20 23:23 Flomax PO 0.8 mg QHS CAR Administration Nutrition/Malnutrition Assess - Dietary Evaluation Nutrition/Malnutrition Findings: Nutrition Notes Start: 11/24/19 12:22 Freq: Status: Active Protocol: Document 03/11/20 11:59 AB (Rec: 03/11/20 12:02 AB [id number]) Co-Sign 03/11/20 11:59 LP Nutrition Notes Initial or Follow up Reassessment Current Diagnosis Coronary Artery Disease,Heart Failure,Respiratory Failure, Stroke,Hyperlipidemia Other Pertinent Diagnosis Partial SBO, pneu Current Diet Osmolite 1.5 at 65ml/hr Labs/Tests Na 136 BUN 25 Cr 0.6 POC BG 181 Pertinent Medications Reviewed Height 6 ft 2 in Weight 126.2 kg [place] Body Weight (kg) 86.36 BMI 35.7 Weight Status Obese Subjective/Other Information F/U for TF rate/tolerance. Per RN, TF is being held for 4 hrs then started at a lower rate d/t nausea. Percent of energy/protein needs met: 0%/0% Burn Absent Trauma Absent GI Symptoms None Current % PO Negligible Minimum of two criteria Yes Muscle Mass Mild Depletion (non-severe) Fluid Accumulation Mild (non-severe) Reduced Impregnator Electrolytic Capacitors Strength Measurably Reduced (severe) #2 Nutrition Diagnosis Malnutrition Diagnosis Progress(for reassessment Continues documentation) #1 Nutrition Diagnosis Inadequate oral intake Diagnosis Progress(for reassessment Continues documentation) Is patient on ventilator? Yes Is Patient Ambulatory and/or Out of Bed No REE-([place]-confined to bed) 2556.636 Kcal/Kg value to use for calculation 17 Approximate Energy Requirements Using 2145 kcal/Kg Calculation Used for Recommendations Kcal/kg Additional Notes Protein needs are 173g ( greater than 2g/kg IBW) Fluid needs are 1 ml/kcal Nutrition Intervention Change Diet Order: Continue TF via PEG Nutrition Support: Osmolite 1.5 at 65 ml/hr. Flush 200 ml q4h. Kcal 2,340 Protein (gm) 98 Fluid (mL) 1,189 Goal #1 Meet at least 75% of pt's energy and protein needs via TF Goal #2 Weight maintenance Anticipated Discharge Needs: unable to determine at this time Follow-Up By: 03/15/20 Additional Comments F/U TF rate/tolerance
--- NOTE | 2020-03-14 11:10 | Progress Note ---
Assessment and Plan - Patient Problems (1) Paroxysmal atrial fibrillation Current Visit: Yes Status: Acute Plan to address problem: Continue current management of atrial fibrillation on a rate control strategy and oral anticoagulation, stable cardiac status. Subjective Principal diagnosis: Ac hypoxemic resp failure; Pneumonia; PUI COVID-19; CHF; COPD; HTN Interval history: Patient is awake, on trach vent. Atrial fibrillation at 113. Objective Vital Signs Temp Pulse Resp Resp BP Pulse Ox Pulse Ox 03/14/20 09:58 127 H 95/76 03/14/20 08:35 117 H 109/79 98 03/14/20 08:00 97.9 F 03/14/20 06:01 129 H 22 100/81 98 03/14/20 05:38 20 03/14/20 05:00 121 H 18 116/75 99 03/14/20 04:42 109 H 03/14/20 04:39 100 03/14/20 04:38 24 03/14/20 04:35 119 H 113/82 100 03/14/20 04:18 20 03/14/20 04:00 97.9 F 116 H 18 113/82 100 03/14/20 03:00 121 H 24 110/84 98 03/14/20 02:01 122 H 24 112/77 98 03/14/20 01:00 114 H 18 115/67 100 03/14/20 00:24 20 03/14/20 00:13 121 H 122/62 100 03/14/20 00:09 114 H 03/14/20 00:01 108 H 20 122/62 100 03/14/20 00:00 97.8 F 03/13/20 23:29 122 H 115/70 03/13/20 23:24 20 03/13/20 23:01 108 H 19 108/75 99 03/13/20 22:01 116 H 15 96/79 100 03/13/20 21:00 115 H 18 105/78 99 03/13/20 20:47 129 H 94/76 98 03/13/20 20:00 97.5 F L 122 H 16 94/76 100 03/13/20 19:24 114 H 03/13/20 19:01 115 H 18 105/83 100 03/13/20 18:12 111 H 19 97/70 100 03/13/20 18:00 123 H 17 110/82 100 03/13/20 17:19 120 H 103/80 100 03/13/20 17:00 128 H 16 103/80 100 03/13/20 16:22 105 H 111/87 03/13/20 16:01 114 H 18 111/87 100 03/13/20 16:00 97.8 F 03/13/20 15:01 117 H 20 107/74 100 03/13/20 14:01 125 H 21 97/70 100 03/13/20 13:16 130 H 97/70 99 03/13/20 13:01 116 H 15 97/70 100 03/13/20 12:01 134 H 18 106/76 100 03/13/20 12:00 97.5 F L 100 - Physical Examination General: Other (s/p trach) HEENT: Positive: PERRL Neck: Positive: neck supple, Other (s/p trach) Cardiac: Positive: irregularly irregular Lungs: Positive: Decreased Breath Sounds Neuro: Positive: Weakness Abdomen: Positive: Soft Skin: Positive: Clear Extremities: Absent: edema - Allied health notes Allied health notes reviewed: RT
[2020-03-14] MEDS: ONDANSETRON 4 MG/2 ML INJ IV PRN (13:43)
--- NOTE | 2020-03-14 14:12 | Progress Note ---
Assessment and Plan Patient admitted for acute hypoxic respiratory failure, S/P tracheostomy.Patient sleeping. Resting on assist control mechanical ventilation, rate 12 , Tidal volume 450, FIO2 30%, PEEP 6 and O2 saturation running 100%. ABG FIO2 30%. ABG pH 7.454 (7.320-7.450) H 03/12/20 04:45 POC ABG pCO2 45.6 mmHg (32.0-48.0) 03/12/20 04:45 ABG pCO2 47.8 mm Hg 02/20/20 06:45 POC ABG pO2 69.2 mmHg (83-108) L 03/12/20 04:45 ABG pO2 88.7 mm Hg (80.0-90.0) 02/20/20 06:45 POC ABG HCO3 31.3 03/12/20 04:45 ABG O2 Saturation 97.2 % (95.0-99.0) 02/20/20 06:45 Recommend spontaneous breathing trials. Patient afebrile. No leukocytosis. Chest xray done 03/10/20reported Mild CHF. Patient is on Apixaban and prevacid. I spent critical care time of 35 minutes on this patient review the chart, obtain history , examining the patient, review chest xray, labs, talking to the nursing staff and respiratory therapy and work out plan of treatment un this critically ill patient. - Patient Problems (1) Acute respiratory failure Current Visit: Yes Status: Acute Plan to address problem: Patient is on mechanical ventilation assist control , rate 12, Tidal volume 450, FIO2 30%, PEEP 6. Albuterol/atrovent aerosol treatments. Continue apixaban Continue prevacid. Recommend spontaneous breathing trials. (2) COPD exacerbation Current Visit: No Status: Acute Plan to address problem: Patient is on mechanical ventilation assist control , rate 12, Tidal volume 450, FIO2 30%, PEEP 6. Albuterol/atrovent aerosol treatments. Continue apixaban Continue prevacid. Recommend spontaneous breathing trials. (3) Bilateral pneumonia Current Visit: Yes Status: Acute Plan to address problem: Chest xray 03/10/20 reported CHF Patient afebrile. No leukocytosis. (4) CHF exacerbation Current Visit: Yes Status: Acute Plan to address problem: Management as per cardiology. (5) Cardiomyopathy Current Visit: Yes Status: Acute Plan to address problem: Management as per cardiology. (6) Pancreatic lesion Current Visit: Yes Status: Acute Plan to address problem: Management as per primary care. (7) Paroxysmal atrial fibrillation Current Visit: Yes Status: Acute Plan to address problem: Patient is on apixaban. Management as per cardiology. (8) CVA (cerebral vascular accident) Current Visit: No Status: Acute Qualifiers: Precerebral and cerebral artery: middle cerebral artery Laterality of affected vessel: right Plan to address problem: Management as per primary care. (9) Cocaine dependence Current Visit: No Status: Acute Plan to address problem: Management as per primary care. (10) HTN (hypertension) Current Visit: No Status: Acute Qualifiers: Hypertension type: essential hypertension Qualified Code(s): I10 - Essential (primary) hypertension Plan to address problem: Management as per primary care. (11) Nicotine dependence Current Visit: No Status: Acute Qualifiers: Nicotine product type: cigarettes Substance use status: in withdrawal Qualified Code(s): F17.213 - Nicotine dependence, cigarettes, with withdrawal Plan to address problem: Counseled to stop smoking. (12) Obesity hypoventilation syndrome Current Visit: No Status: Acute Plan to address problem: Patient S/P tracheostomy and on mechanical ventilation. Subjective Date of service: 03/14/20 Principal diagnosis: Ac hypoxemic resp failure; Pneumonia; PUI COVID-19; CHF; COPD; HTN Interval history: Patient admitted for acute hypoxic respiratory failure, S/P tracheostomy.Patient sleeping. Resting on assist control mechanical ventilation, rate 12 , Tidal volume 450, FIO2 30%, PEEP 6 and O2 saturation running 100%. ABG FIO2 30%. ABG pH 7.454 (7.320-7.450) H 03/12/20 04:45 POC ABG pCO2 45.6 mmHg (32.0-48.0) 03/12/20 04:45 ABG pCO2 47.8 mm Hg 02/20/20 06:45 POC ABG pO2 69.2 mmHg (83-108) L 03/12/20 04:45 ABG pO2 88.7 mm Hg (80.0-90.0) 02/20/20 06:45 POC ABG HCO3 31.3 03/12/20 04:45 ABG O2 Saturation 97.2 % (95.0-99.0) 02/20/20 06:45 Recommend spontaneous breathing trials. Patient afebrile. No leukocytosis. Chest xray done 03/10/20reported Mild CHF. Patient is on Apixaban and prevacid. Objective Vital Signs - 12hr 03/14/20 03/14/20 03/14/20 03:00 04:00 04:18 Temperature 97.9 F Pulse Rate 121 H 116 H Respiratory 24 18 Rate Respiratory 20 Rate [Neck] Blood Pressure 110/84 113/82 O2 Sat by Pulse 98 100 Oximetry O2 Sat by Pulse Oximetry [ Assessment] 03/14/20 03/14/20 03/14/20 04:35 04:38 04:39 Temperature Pulse Rate 119 H Respiratory 24 Rate Respiratory Rate [Neck] Blood Pressure 113/82 O2 Sat by Pulse 100 Oximetry O2 Sat by Pulse 100 Oximetry [ Assessment] 03/14/20 03/14/20 03/14/20 04:42 05:00 05:38 Temperature Pulse Rate 109 H 121 H Respiratory 18 20 Rate Respiratory Rate [Neck] Blood Pressure 116/75 O2 Sat by Pulse 99 Oximetry O2 Sat by Pulse Oximetry [ Assessment] 03/14/20 03/14/20 03/14/20 06:01 07:00 08:00 Temperature 97.9 F Pulse Rate 129 H 124 H 124 H Respiratory 22 20 20 Rate Respiratory Rate [Neck] Blood Pressure 100/81 114/72 109/79 O2 Sat by Pulse 98 99 99 Oximetry O2 Sat by Pulse Oximetry [ Assessment] 03/14/20 03/14/20 03/14/20 08:35 09:00 09:58 Temperature Pulse Rate 117 H 123 H 127 H Respiratory 18 Rate Respiratory Rate [Neck] Blood Pressure 109/79 95/76 95/76 O2 Sat by Pulse 98 99 Oximetry O2 Sat by Pulse Oximetry [ Assessment] 03/14/20 03/14/20 03/14/20 10:00 11:00 11:20 Temperature Pulse Rate 133 H 119 H 126 H Respiratory 20 18 Rate Respiratory Rate [Neck] Blood Pressure 109/79 109/79 96/74 O2 Sat by Pulse 99 100 99 Oximetry O2 Sat by Pulse Oximetry [ Assessment] 03/14/20 12:00 Temperature 97.9 F Pulse Rate Respiratory Rate Respiratory Rate [Neck] Blood Pressure O2 Sat by Pulse Oximetry O2 Sat by Pulse Oximetry [ Assessment] Constitutional: no acute distress, asleep Eyes: non-icteric ENT: oropharynx moist, other (+ midline tracheostomy) Neck: supple, no JVD Effort: mildly labored Ascultation: Bilateral: diminished breath sounds, rhonchi, other (tracheal secretions ) Percussion: Bilateral: not dull Cardiovascular: irregular rhythm Gastrointestinal: normoactive bowel sounds, soft, non-tender, non-distended (protuberant), other (protuberant; PEG in place) Integumentary: normal Extremities: no cyanosis, pulses normal, no ischemia or petechiae, edema (bilateral lower) Neurologic: non-focal exam (moves extremities), pupils equal and round, other (intermittent agitation) Psychiatric: anxious CBC and BMP: 03/09/20 06:32 03/09/20 06:32 ABG, PT/INR, D-dimer: ABG ABG pH 7.454 (7.320-7.450) H 03/12/20 04:45 POC ABG pCO2 45.6 mmHg (32.0-48.0) 03/12/20 04:45 ABG pCO2 47.8 mm Hg 02/20/20 06:45 POC ABG pO2 69.2 mmHg (83-108) L 03/12/20 04:45 ABG pO2 88.7 mm Hg (80.0-90.0) 02/20/20 06:45 POC ABG HCO3 31.3 03/12/20 04:45 ABG O2 Saturation 97.2 % (95.0-99.0) 02/20/20 06:45 PT/INR, D-dimer PT 27.0 Sec. (12.2-14.9) H 02/07/20 15:03 INR 2.46 (0.87-1.13) H 02/07/20 15:03 Abnormal lab findings: Abnormal Labs 11/24/19 11/24/19 11/24/19 02:53 02:53 03:45 WBC 14.3 H RBC Hgb Hct MCHC RDW 17.2 H MCV MCH Lymph % (Auto) [place] % (Auto) [place] # Eos # Lymph # (Auto) [place] # (Auto) Eos # (Auto) Seg Neutrophils % Seg Neuts % (Manual) Baso # (Auto) Lymphocytes % (Manual) Monocytes % (Manual) Eosinophils % (Manual) Basophils % (Manual) Seg Neutrophils # Seg Neutrophils # Man 8.3 H Lymphocytes # (Manual) Monocytes # (Manual) 0.9 H Eosinophils # (Manual) Nucleated RBC % Basophils # (Manual) PT INR APTT Heparin Anti-Xa Level ABG pH 7.313 L POC ABG pO2 ABG pO2 102.8 H ABG HCO3 ABG O2 Saturation ABG Base Excess -2.9 L POC ABG pCO2 ABG Hemoglobin ABG Oxyhemoglobin ABG Sodium ABG Chloride ABG Glucose Oxyhemoglobin 93.9 L Sodium Potassium Chloride Carbon Dioxide BUN Creatinine Glucose 195 H POC Glucose Lactic Acid Calcium Phosphorus Magnesium AST ALT Lactate Dehydrogenase Total Bilirubin Direct Bilirubin CK-MB (CK-2) 4.3 H C-Reactive Protein NT-Pro-B Natriuret Pep 1181 H Total Protein Albumin Arterial Blood Glucose Urine WBC (Auto) Urine Creatinine 11/24/19 11/24/19 11/24/19 04:53 04:53 10:37 WBC RBC Hgb Hct MCHC RDW MCV MCH Lymph % (Auto) [place] % (Auto) [place] # Eos # Lymph # (Auto) [place] # (Auto) Eos # (Auto) Seg Neutrophils % Seg Neuts % (Manual) Baso # (Auto) Lymphocytes % (Manual) Monocytes % (Manual) Eosinophils % (Manual) Basophils % (Manual) Seg Neutrophils # Seg Neutrophils # Man Lymphocytes # (Manual) Monocytes # (Manual) Eosinophils # (Manual) Nucleated RBC % Basophils # (Manual) PT INR APTT Heparin Anti-Xa Level ABG pH POC ABG pO2 ABG pO2 ABG HCO3 ABG O2 Saturation ABG Base Excess POC ABG pCO2 ABG Hemoglobin ABG Oxyhemoglobin ABG Sodium ABG Chloride ABG Glucose Oxyhemoglobin Sodium Potassium Chloride Carbon Dioxide BUN Creatinine Glucose 162 H POC Glucose Lactic Acid 2.40 H* 2.50 H* Calcium Phosphorus Magnesium AST ALT Lactate Dehydrogenase 240 H Total Bilirubin Direct Bilirubin CK-MB (CK-2) C-Reactive Protein NT-Pro-B Natriuret Pep Total Protein Albumin Arterial Blood Glucose Urine WBC (Auto) Urine Creatinine 11/24/19 11/24/19 11/24/19 12:21 14:50 19:54 WBC RBC Hgb Hct MCHC RDW MCV MCH Lymph % (Auto) [place] % (Auto) [place] # Eos # Lymph # (Auto) [place] # (Auto) Eos # (Auto) Seg Neutrophils % Seg Neuts % (Manual) Baso # (Auto) Lymphocytes % (Manual) Monocytes % (Manual) Eosinophils % (Manual) Basophils % (Manual) Seg Neutrophils # Seg Neutrophils # Man Lymphocytes # (Manual) Monocytes # (Manual) Eosinophils # (Manual) Nucleated RBC % Basophils # (Manual) PT INR APTT Heparin Anti-Xa Level ABG pH POC ABG pO2 ABG pO2 ABG HCO3 ABG O2 Saturation ABG Base Excess POC ABG pCO2 ABG Hemoglobin ABG Oxyhemoglobin ABG Sodium ABG Chloride ABG Glucose Oxyhemoglobin Sodium Potassium Chloride Carbon Dioxide BUN Creatinine Glucose POC Glucose 145 H 143 H 124 H Lactic Acid Calcium Phosphorus Magnesium AST ALT Lactate Dehydrogenase Total Bilirubin Direct Bilirubin CK-MB (CK-2) C-Reactive Protein NT-Pro-B Natriuret Pep Total Protein Albumin Arterial Blood Glucose Urine WBC (Auto) Urine Creatinine 11/25/19 11/25/19 11/25/19 00:18 03:18 05:11 WBC 13.7 H RBC Hgb Hct MCHC RDW 17.1 H MCV MCH Lymph % (Auto) 10.8 L [place] % (Auto) 8.7 H [place] # 1.2 H Eos # Lymph # (Auto) [place] # (Auto) Eos # (Auto) Seg Neutrophils % 80.2 H Seg Neuts % (Manual) Baso # (Auto) Lymphocytes % (Manual) Monocytes % (Manual) Eosinophils % (Manual) Basophils % (Manual) Seg Neutrophils # 11.0 H Seg Neutrophils # Man Lymphocytes # (Manual) Monocytes # (Manual) Eosinophils # (Manual) Nucleated RBC % Basophils # (Manual) PT INR APTT Heparin Anti-Xa Level ABG pH 7.333 L POC ABG pO2 ABG pO2 61.2 L ABG HCO3 ABG O2 Saturation 90.2 L ABG Base Excess POC ABG pCO2 ABG Hemoglobin 13.7 L ABG Oxyhemoglobin ABG Sodium ABG Chloride ABG Glucose Oxyhemoglobin 88.2 L Sodium Potassium Chloride Carbon Dioxide BUN Creatinine Glucose POC Glucose 109 H Lactic Acid Calcium Phosphorus Magnesium AST ALT Lactate Dehydrogenase Total Bilirubin Direct Bilirubin CK-MB (CK-2) C-Reactive Protein NT-Pro-B Natriuret Pep Total Protein Albumin Arterial Blood Glucose Urine WBC (Auto) Urine Creatinine 11/25/19 11/25/19 11/26/19 05:11 11:40 03:12 WBC RBC Hgb Hct MCHC RDW MCV MCH Lymph % (Auto) [place] % (Auto) [place] # Eos # Lymph # (Auto) [place] # (Auto) Eos # (Auto) Seg Neutrophils % Seg Neuts % (Manual) Baso # (Auto) Lymphocytes % (Manual) Monocytes % (Manual) Eosinophils % (Manual) Basophils % (Manual) Seg Neutrophils # Seg Neutrophils # Man Lymphocytes # (Manual) Monocytes # (Manual) Eosinophils # (Manual) Nucleated RBC % Basophils # (Manual) PT INR APTT Heparin Anti-Xa Level ABG pH POC ABG pO2 ABG pO2 155.1 H ABG HCO3 27.8 H ABG O2 Saturation ABG Base Excess POC ABG pCO2 ABG Hemoglobin 12.2 L ABG Oxyhemoglobin ABG Sodium ABG Chloride ABG Glucose Oxyhemoglobin Sodium Potassium Chloride Carbon Dioxide BUN 23 H Creatinine Glucose 110 H POC Glucose 108 H Lactic Acid Calcium Phosphorus Magnesium AST ALT Lactate Dehydrogenase Total Bilirubin Direct Bilirubin CK-MB (CK-2) C-Reactive Protein NT-Pro-B Natriuret Pep Total Protein Albumin Arterial Blood Glucose Urine WBC (Auto) Urine Creatinine 11/26/19 11/26/19 11/26/19 06:17 10:43 10:43 WBC 11.4 H RBC Hgb Hct MCHC RDW 17.1 H MCV MCH Lymph % (Auto) [place] % (Auto) [place] # Eos # Lymph # (Auto) [place] # (Auto) Eos # (Auto) Seg Neutrophils % Seg Neuts % (Manual) Baso # (Auto) Lymphocytes % (Manual) Monocytes % (Manual) Eosinophils % (Manual) Basophils % (Manual) Seg Neutrophils # Seg Neutrophils # Man Lymphocytes # (Manual) Monocytes # (Manual) Eosinophils # (Manual) Nucleated RBC % Basophils # (Manual) PT INR APTT Heparin Anti-Xa Level ABG pH POC ABG pO2 ABG pO2 ABG HCO3 ABG O2 Saturation ABG Base Excess POC ABG pCO2 ABG Hemoglobin ABG Oxyhemoglobin ABG Sodium ABG Chloride ABG Glucose Oxyhemoglobin Sodium Potassium Chloride Carbon Dioxide BUN 29 H Creatinine Glucose POC Glucose 107 H Lactic Acid Calcium Phosphorus Magnesium AST ALT Lactate Dehydrogenase Total Bilirubin Direct Bilirubin CK-MB (CK-2) C-Reactive Protein NT-Pro-B Natriuret Pep Total Protein Albumin Arterial Blood Glucose Urine WBC (Auto) Urine Creatinine 11/26/19 11/27/19 11/27/19 17:11 01:53 04:11 WBC RBC Hgb Hct MCHC RDW MCV MCH Lymph % (Auto) [place] % (Auto) [place] # Eos # Lymph # (Auto) [place] # (Auto) Eos # (Auto) Seg Neutrophils % Seg Neuts % (Manual) Baso # (Auto) Lymphocytes % (Manual) Monocytes % (Manual) Eosinophils % (Manual) Basophils % (Manual) Seg Neutrophils # Seg Neutrophils # Man Lymphocytes # (Manual) Monocytes # (Manual) Eosinophils # (Manual) Nucleated RBC % Basophils # (Manual) PT INR APTT Heparin Anti-Xa Level ABG pH POC ABG pO2 ABG pO2 ABG HCO3 29.2 H ABG O2 Saturation ABG Base Excess 3.4 H POC ABG pCO2 ABG Hemoglobin 13.3 L ABG Oxyhemoglobin ABG Sodium ABG Chloride ABG Glucose Oxyhemoglobin 94.5 L Sodium Potassium Chloride Carbon Dioxide BUN Creatinine Glucose POC Glucose 113 H 108 H Lactic Acid Calcium Phosphorus Magnesium AST ALT Lactate Dehydrogenase Total Bilirubin Direct Bilirubin CK-MB (CK-2) C-Reactive Protein NT-Pro-B Natriuret Pep Total Protein Albumin Arterial Blood Glucose Urine WBC (Auto) Urine Creatinine 11/27/19 11/28/19 11/28/19 05:27 05:00 05:25 WBC RBC Hgb Hct MCHC RDW MCV MCH Lymph % (Auto) [place] % (Auto) [place] # Eos # Lymph # (Auto) [place] # (Auto) Eos # (Auto) Seg Neutrophils % Seg Neuts % (Manual) Baso # (Auto) Lymphocytes % (Manual) Monocytes % (Manual) Eosinophils % (Manual) Basophils % (Manual) Seg Neutrophils # Seg Neutrophils # Man Lymphocytes # (Manual) Monocytes # (Manual) Eosinophils # (Manual) Nucleated RBC % Basophils # (Manual) PT INR APTT Heparin Anti-Xa Level ABG pH POC ABG pO2 68.1 L ABG pO2 ABG HCO3 ABG O2 Saturation ABG Base Excess POC ABG pCO2 ABG Hemoglobin ABG Oxyhemoglobin 91.2 L ABG Sodium ABG Chloride ABG Glucose Oxyhemoglobin Sodium Potassium Chloride Carbon Dioxide BUN Creatinine Glucose POC Glucose 111 H 110 H Lactic Acid Calcium Phosphorus Magnesium AST ALT Lactate Dehydrogenase Total Bilirubin Direct Bilirubin CK-MB (CK-2) C-Reactive Protein NT-Pro-B Natriuret Pep Total Protein Albumin Arterial Blood Glucose Urine WBC (Auto) Urine Creatinine 11/28/19 11/28/19 11/28/19 12:08 13:47 13:47 WBC 11.3 H RBC Hgb Hct MCHC RDW 16.1 H MCV MCH Lymph % (Auto) [place] % (Auto) 9.9 H [place] # 1.1 H Eos # Lymph # (Auto) [place] # (Auto) Eos # (Auto) Seg Neutrophils % 71.4 H Seg Neuts % (Manual) Baso # (Auto) Lymphocytes % (Manual) Monocytes % (Manual) Eosinophils % (Manual) Basophils % (Manual) Seg Neutrophils # 8.1 H Seg Neutrophils # Man Lymphocytes # (Manual) Monocytes # (Manual) Eosinophils # (Manual) Nucleated RBC % Basophils # (Manual) PT INR APTT Heparin Anti-Xa Level ABG pH POC ABG pO2 ABG pO2 ABG HCO3 ABG O2 Saturation ABG Base Excess POC ABG pCO2 ABG Hemoglobin ABG Oxyhemoglobin ABG Sodium ABG Chloride ABG Glucose Oxyhemoglobin Sodium Potassium Chloride Carbon Dioxide BUN 23 H Creatinine Glucose 123 H POC Glucose 112 H Lactic Acid Calcium Phosphorus Magnesium AST ALT Lactate Dehydrogenase Total Bilirubin Direct Bilirubin CK-MB (CK-2) C-Reactive Protein NT-Pro-B Natriuret Pep Total Protein Albumin 3.7 L Arterial Blood Glucose Urine WBC (Auto) Urine Creatinine 11/28/19 11/29/19 11/29/19 17:26 03:55 17:04 WBC RBC Hgb Hct MCHC RDW MCV MCH Lymph % (Auto) [place] % (Auto) [place] # Eos # Lymph # (Auto) [place] # (Auto) Eos # (Auto) Seg Neutrophils % Seg Neuts % (Manual) Baso # (Auto) Lymphocytes % (Manual) Monocytes % (Manual) Eosinophils % (Manual) Basophils % (Manual) Seg Neutrophils # Seg Neutrophils # Man Lymphocytes # (Manual) Monocytes # (Manual) Eosinophils # (Manual) Nucleated RBC % Basophils # (Manual) PT INR APTT Heparin Anti-Xa Level ABG pH POC ABG pO2 ABG pO2 65.7 L ABG HCO3 28.3 H ABG O2 Saturation 93.9 L ABG Base Excess 3.6 H POC ABG pCO2 ABG Hemoglobin 13.3 L ABG Oxyhemoglobin ABG Sodium ABG Chloride ABG Glucose Oxyhemoglobin 91.5 L Sodium Potassium Chloride Carbon Dioxide BUN Creatinine Glucose POC Glucose 123 H 119 H Lactic Acid Calcium Phosphorus Magnesium AST ALT Lactate Dehydrogenase Total Bilirubin Direct Bilirubin CK-MB (CK-2) C-Reactive Protein NT-Pro-B Natriuret Pep Total Protein Albumin Arterial Blood Glucose Urine WBC (Auto) Urine Creatinine 11/30/19 11/30/19 11/30/19 04:17 04:17 04:56 WBC 13.4 H RBC Hgb Hct MCHC RDW 15.6 H MCV MCH Lymph % (Auto) [place] % (Auto) [place] # Eos # Lymph # (Auto) [place] # (Auto) Eos # (Auto) Seg Neutrophils % Seg Neuts % (Manual) Baso # (Auto) Lymphocytes % (Manual) Monocytes % (Manual) Eosinophils % (Manual) Basophils % (Manual) Seg Neutrophils # Seg Neutrophils # Man Lymphocytes # (Manual) Monocytes # (Manual) Eosinophils # (Manual) Nucleated RBC % Basophils # (Manual) PT INR APTT Heparin Anti-Xa Level ABG pH POC ABG pO2 ABG pO2 56.3 L ABG HCO3 29.3 H ABG O2 Saturation 91.5 L ABG Base Excess 4.7 H POC ABG pCO2 ABG Hemoglobin 12.1 L ABG Oxyhemoglobin ABG Sodium ABG Chloride ABG Glucose Oxyhemoglobin 89.2 L Sodium 147 H Potassium Chloride Carbon Dioxide BUN 30 H Creatinine Glucose 124 H POC Glucose Lactic Acid Calcium Phosphorus Magnesium AST ALT Lactate Dehydrogenase Total Bilirubin Direct Bilirubin CK-MB (CK-2) C-Reactive Protein NT-Pro-B Natriuret Pep Total Protein Albumin 3.8 L Arterial Blood Glucose Urine WBC (Auto) Urine Creatinine 11/30/19 11/30/19 11/30/19 05:51 11:54 18:17 WBC RBC Hgb Hct MCHC RDW MCV MCH Lymph % (Auto) [place] % (Auto) [place] # Eos # Lymph # (Auto) [place] # (Auto) Eos # (Auto) Seg Neutrophils % Seg Neuts % (Manual) Baso # (Auto) Lymphocytes % (Manual) Monocytes % (Manual) Eosinophils % (Manual) Basophils % (Manual) Seg Neutrophils # Seg Neutrophils # Man Lymphocytes # (Manual) Monocytes # (Manual) Eosinophils # (Manual) Nucleated RBC % Basophils # (Manual) PT INR APTT Heparin Anti-Xa Level ABG pH POC ABG pO2 ABG pO2 ABG HCO3 ABG O2 Saturation ABG Base Excess POC ABG pCO2 ABG Hemoglobin ABG Oxyhemoglobin ABG Sodium ABG Chloride ABG Glucose Oxyhemoglobin Sodium Potassium Chloride Carbon Dioxide BUN Creatinine Glucose POC Glucose 127 H 115 H 143 H Lactic Acid Calcium Phosphorus Magnesium AST ALT Lactate Dehydrogenase Total Bilirubin Direct Bilirubin CK-MB (CK-2) C-Reactive Protein NT-Pro-B Natriuret Pep Total Protein Albumin Arterial Blood Glucose Urine WBC (Auto) Urine Creatinine 12/01/19 12/01/19 12/01/19 01:18 05:22 12:16 WBC RBC Hgb Hct MCHC RDW MCV MCH Lymph % (Auto) [place] % (Auto) [place] # Eos # Lymph # (Auto) [place] # (Auto) Eos # (Auto) Seg Neutrophils % Seg Neuts % (Manual) Baso # (Auto) Lymphocytes % (Manual) Monocytes % (Manual) Eosinophils % (Manual) Basophils % (Manual) Seg Neutrophils # Seg Neutrophils # Man Lymphocytes # (Manual) Monocytes # (Manual) Eosinophils # (Manual) Nucleated RBC % Basophils # (Manual) PT INR APTT Heparin Anti-Xa Level ABG pH POC ABG pO2 ABG pO2 ABG HCO3 ABG O2 Saturation ABG Base Excess POC ABG pCO2 ABG Hemoglobin ABG Oxyhemoglobin ABG Sodium ABG Chloride ABG Glucose Oxyhemoglobin Sodium Potassium 3.5 L Chloride 107.8 H Carbon Dioxide BUN 37 H Creatinine Glucose 157 H POC Glucose 118 H 148 H Lactic Acid Calcium 8.2 L D Phosphorus Magnesium AST 48 H ALT 60 H Lactate Dehydrogenase 194 H Total Bilirubin Direct Bilirubin CK-MB (CK-2) C-Reactive Protein 8.50 H NT-Pro-B Natriuret Pep Total Protein 5.5 L Albumin 2.8 L Arterial Blood Glucose Urine WBC (Auto) Urine Creatinine 12/01/19 12/02/19 12/02/19 18:04 00:05 05:16 WBC 11.4 H RBC Hgb Hct MCHC RDW 15.9 H MCV MCH Lymph % (Auto) [place] % (Auto) 9.9 H [place] # 1.1 H Eos # Lymph # (Auto) [place] # (Auto) Eos # (Auto) Seg Neutrophils % 70.3 H Seg Neuts % (Manual) Baso # (Auto) Lymphocytes % (Manual) Monocytes % (Manual) Eosinophils % (Manual) Basophils % (Manual) Seg Neutrophils # 8.0 H Seg Neutrophils # Man Lymphocytes # (Manual) Monocytes # (Manual) Eosinophils # (Manual) Nucleated RBC % Basophils # (Manual) PT INR APTT Heparin Anti-Xa Level ABG pH POC ABG pO2 ABG pO2 ABG HCO3 ABG O2 Saturation ABG Base Excess POC ABG pCO2 ABG Hemoglobin ABG Oxyhemoglobin ABG Sodium ABG Chloride ABG Glucose Oxyhemoglobin Sodium Potassium Chloride Carbon Dioxide BUN Creatinine Glucose POC Glucose 143 H 107 H Lactic Acid Calcium Phosphorus Magnesium AST ALT Lactate Dehydrogenase Total Bilirubin Direct Bilirubin CK-MB (CK-2) C-Reactive Protein NT-Pro-B Natriuret Pep Total Protein Albumin Arterial Blood Glucose Urine WBC (Auto) Urine Creatinine 12/02/19 12/02/19 12/02/19 05:16 06:03 11:52 WBC RBC Hgb Hct MCHC RDW MCV MCH Lymph % (Auto) [place] % (Auto) [place] # Eos # Lymph # (Auto) [place] # (Auto) Eos # (Auto) Seg Neutrophils % Seg Neuts % (Manual) Baso # (Auto) Lymphocytes % (Manual) Monocytes % (Manual) Eosinophils % (Manual) Basophils % (Manual) Seg Neutrophils # Seg Neutrophils # Man Lymphocytes # (Manual) Monocytes # (Manual) Eosinophils # (Manual) Nucleated RBC % Basophils # (Manual) PT INR APTT Heparin Anti-Xa Level ABG pH POC ABG pO2 ABG pO2 ABG HCO3 ABG O2 Saturation ABG Base Excess POC ABG pCO2 ABG Hemoglobin ABG Oxyhemoglobin ABG Sodium ABG Chloride ABG Glucose Oxyhemoglobin Sodium 146 H Potassium Chloride Carbon Dioxide BUN 28 H Creatinine Glucose 123 H POC Glucose 110 H 152 H Lactic Acid Calcium Phosphorus Magnesium AST ALT Lactate Dehydrogenase Total Bilirubin Direct Bilirubin CK-MB (CK-2) C-Reactive Protein NT-Pro-B Natriuret Pep Total Protein Albumin Arterial Blood Glucose Urine WBC (Auto) Urine Creatinine 12/02/19 12/02/19 12/02/19 12:58 17:58 23:36 WBC RBC Hgb Hct MCHC RDW MCV MCH Lymph % (Auto) [place] % (Auto) [place] # Eos # Lymph # (Auto) [place] # (Auto) Eos # (Auto) Seg Neutrophils % Seg Neuts % (Manual) Baso # (Auto) Lymphocytes % (Manual) Monocytes % (Manual) Eosinophils % (Manual) Basophils % (Manual) Seg Neutrophils # Seg Neutrophils # Man Lymphocytes # (Manual) Monocytes # (Manual) Eosinophils # (Manual) Nucleated RBC % Basophils # (Manual) PT INR APTT Heparin Anti-Xa Level ABG pH POC ABG pO2 78.1 L ABG pO2 ABG HCO3 ABG O2 Saturation ABG Base Excess POC ABG pCO2 ABG Hemoglobin ABG Oxyhemoglobin ABG Sodium ABG Chloride ABG Glucose Oxyhemoglobin Sodium Potassium Chloride Carbon Dioxide BUN Creatinine Glucose POC Glucose 120 H 123 H Lactic Acid Calcium Phosphorus Magnesium AST ALT Lactate Dehydrogenase Total Bilirubin Direct Bilirubin CK-MB (CK-2) C-Reactive Protein NT-Pro-B Natriuret Pep Total Protein Albumin Arterial Blood Glucose Urine WBC (Auto) Urine Creatinine 12/03/19 12/03/19 12/03/19 06:03 06:14 11:46 WBC RBC Hgb Hct MCHC RDW MCV MCH Lymph % (Auto) [place] % (Auto) [place] # Eos # Lymph # (Auto) [place] # (Auto) Eos # (Auto) Seg Neutrophils % Seg Neuts % (Manual) Baso # (Auto) Lymphocytes % (Manual) Monocytes % (Manual) Eosinophils % (Manual) Basophils % (Manual) Seg Neutrophils # Seg Neutrophils # Man Lymphocytes # (Manual) Monocytes # (Manual) Eosinophils # (Manual) Nucleated RBC % Basophils # (Manual) PT INR APTT Heparin Anti-Xa Level ABG pH POC ABG pO2 ABG pO2 ABG HCO3 ABG O2 Saturation ABG Base Excess POC ABG pCO2 ABG Hemoglobin ABG Oxyhemoglobin ABG Sodium ABG Chloride ABG Glucose Oxyhemoglobin Sodium Potassium Chloride Carbon Dioxide BUN Creatinine Glucose POC Glucose 142 H 130 H Lactic Acid Calcium Phosphorus Magnesium AST ALT Lactate Dehydrogenase Total Bilirubin Direct Bilirubin CK-MB (CK-2) C-Reactive Protein NT-Pro-B Natriuret Pep Total Protein Albumin Arterial Blood Glucose Urine WBC (Auto) 8.0 H Urine Creatinine 12/03/19 12/03/19 12/04/19 15:50 17:39 00:04 WBC RBC Hgb Hct MCHC RDW MCV MCH Lymph % (Auto) [place] % (Auto) [place] # Eos # Lymph # (Auto) [place] # (Auto) Eos # (Auto) Seg Neutrophils % Seg Neuts % (Manual) Baso # (Auto) Lymphocytes % (Manual) Monocytes % (Manual) Eosinophils % (Manual) Basophils % (Manual) Seg Neutrophils # Seg Neutrophils # Man Lymphocytes # (Manual) Monocytes # (Manual) Eosinophils # (Manual) Nucleated RBC % Basophils # (Manual) PT INR APTT Heparin Anti-Xa Level ABG pH POC ABG pO2 ABG pO2 ABG HCO3 ABG O2 Saturation ABG Base Excess POC ABG pCO2 ABG Hemoglobin ABG Oxyhemoglobin ABG Sodium ABG Chloride ABG Glucose Oxyhemoglobin Sodium Potassium Chloride Carbon Dioxide BUN Creatinine Glucose POC Glucose 146 H 133 H Lactic Acid Calcium Phosphorus 2.40 L Magnesium AST ALT Lactate Dehydrogenase Total Bilirubin Direct Bilirubin CK-MB (CK-2) C-Reactive Protein NT-Pro-B Natriuret Pep Total Protein Albumin Arterial Blood Glucose Urine WBC (Auto) Urine Creatinine 12/04/19 12/04/19 12/04/19 03:58 03:58 05:22 WBC 12.5 H RBC Hgb 11.2 L Hct 35.2 L MCHC RDW 16.0 H MCV MCH Lymph % (Auto) [place] % (Auto) 9.6 H [place] # 1.2 H Eos # 0.5 H Lymph # (Auto) [place] # (Auto) Eos # (Auto) Seg Neutrophils % Seg Neuts % (Manual) Baso # (Auto) Lymphocytes % (Manual) Monocytes % (Manual) Eosinophils % (Manual) Basophils % (Manual) Seg Neutrophils # 8.6 H Seg Neutrophils # Man Lymphocytes # (Manual) Monocytes # (Manual) Eosinophils # (Manual) Nucleated RBC % Basophils # (Manual) PT INR APTT Heparin Anti-Xa Level ABG pH POC ABG pO2 ABG pO2 ABG HCO3 ABG O2 Saturation ABG Base Excess POC ABG pCO2 ABG Hemoglobin ABG Oxyhemoglobin ABG Sodium ABG Chloride ABG Glucose Oxyhemoglobin Sodium 146 H Potassium Chloride 108.6 H Carbon Dioxide BUN 30 H Creatinine 0.7 L Glucose 121 H POC Glucose 132 H Lactic Acid Calcium Phosphorus Magnesium AST ALT Lactate Dehydrogenase Total Bilirubin Direct Bilirubin CK-MB (CK-2) C-Reactive Protein NT-Pro-B Natriuret Pep Total Protein Albumin Arterial Blood Glucose Urine WBC (Auto) Urine Creatinine 12/04/19 12/04/19 12/05/19 13:26 18:43 00:19 WBC RBC Hgb Hct MCHC RDW MCV MCH Lymph % (Auto) [place] % (Auto) [place] # Eos # Lymph # (Auto) [place] # (Auto) Eos # (Auto) Seg Neutrophils % Seg Neuts % (Manual) Baso # (Auto) Lymphocytes % (Manual) Monocytes % (Manual) Eosinophils % (Manual) Basophils % (Manual) Seg Neutrophils # Seg Neutrophils # Man Lymphocytes # (Manual) Monocytes # (Manual) Eosinophils # (Manual) Nucleated RBC % Basophils # (Manual) PT INR APTT Heparin Anti-Xa Level ABG pH POC ABG pO2 ABG pO2 ABG HCO3 ABG O2 Saturation ABG Base Excess POC ABG pCO2 ABG Hemoglobin ABG Oxyhemoglobin ABG Sodium ABG Chloride ABG Glucose Oxyhemoglobin Sodium Potassium Chloride Carbon Dioxide BUN Creatinine Glucose POC Glucose 185 H 156 H 150 H Lactic Acid Calcium Phosphorus Magnesium AST ALT Lactate Dehydrogenase Total Bilirubin Direct Bilirubin CK-MB (CK-2) C-Reactive Protein NT-Pro-B Natriuret Pep Total Protein Albumin Arterial Blood Glucose Urine WBC (Auto) Urine Creatinine 12/05/19 12/05/19 12/05/19 03:37 03:37 05:14 WBC 16.3 H RBC Hgb 11.4 L Hct MCHC RDW 15.6 H MCV MCH Lymph % (Auto) 9.9 L [place] % (Auto) 9.7 H [place] # 1.6 H Eos # Lymph # (Auto) [place] # (Auto) Eos # (Auto) Seg Neutrophils % 78.0 H Seg Neuts % (Manual) Baso # (Auto) Lymphocytes % (Manual) Monocytes % (Manual) Eosinophils % (Manual) Basophils % (Manual) Seg Neutrophils # 12.7 H Seg Neutrophils # Man Lymphocytes # (Manual) Monocytes # (Manual) Eosinophils # (Manual) Nucleated RBC % Basophils # (Manual) PT INR APTT Heparin Anti-Xa Level ABG pH POC ABG pO2 ABG pO2 ABG HCO3 ABG O2 Saturation ABG Base Excess POC ABG pCO2 ABG Hemoglobin ABG Oxyhemoglobin ABG Sodium ABG Chloride ABG Glucose Oxyhemoglobin Sodium 146 H Potassium Chloride 107.2 H Carbon Dioxide BUN 27 H Creatinine 0.7 L Glucose 171 H POC Glucose 168 H Lactic Acid Calcium Phosphorus Magnesium AST ALT Lactate Dehydrogenase Total Bilirubin Direct Bilirubin CK-MB (CK-2) C-Reactive Protein NT-Pro-B Natriuret Pep Total Protein Albumin Arterial Blood Glucose Urine WBC (Auto) Urine Creatinine 12/05/19 12/05/19 12/05/19 12:31 18:10 23:58 WBC RBC Hgb Hct MCHC RDW MCV MCH Lymph % (Auto) [place] % (Auto) [place] # Eos # Lymph # (Auto) [place] # (Auto) Eos # (Auto) Seg Neutrophils % Seg Neuts % (Manual) Baso # (Auto) Lymphocytes % (Manual) Monocytes % (Manual) Eosinophils % (Manual) Basophils % (Manual) Seg Neutrophils # Seg Neutrophils # Man Lymphocytes # (Manual) Monocytes # (Manual) Eosinophils # (Manual) Nucleated RBC % Basophils # (Manual) PT INR APTT Heparin Anti-Xa Level ABG pH POC ABG pO2 ABG pO2 ABG HCO3 ABG O2 Saturation ABG Base Excess POC ABG pCO2 ABG Hemoglobin ABG Oxyhemoglobin ABG Sodium ABG Chloride ABG Glucose Oxyhemoglobin Sodium Potassium Chloride Carbon Dioxide BUN Creatinine Glucose POC Glucose 159 H 198 H 115 H Lactic Acid Calcium Phosphorus Magnesium AST ALT Lactate Dehydrogenase Total Bilirubin Direct Bilirubin CK-MB (CK-2) C-Reactive Protein NT-Pro-B Natriuret Pep Total Protein Albumin Arterial Blood Glucose Urine WBC (Auto) Urine Creatinine 12/06/19 12/06/19 12/06/19 05:24 05:24 05:25 WBC 14.9 H RBC Hgb 10.8 L Hct 34.0 L MCHC RDW 15.6 H MCV MCH Lymph % (Auto) 10.7 L [place] % (Auto) 8.3 H [place] # 1.2 H Eos # Lymph # (Auto) [place] # (Auto) Eos # (Auto) Seg Neutrophils % 78.7 H Seg Neuts % (Manual) Baso # (Auto) Lymphocytes % (Manual) Monocytes % (Manual) Eosinophils % (Manual) Basophils % (Manual) Seg Neutrophils # 11.7 H Seg Neutrophils # Man Lymphocytes # (Manual) Monocytes # (Manual) Eosinophils # (Manual) Nucleated RBC % Basophils # (Manual) PT INR APTT Heparin Anti-Xa Level ABG pH POC ABG pO2 ABG pO2 ABG HCO3 ABG O2 Saturation ABG Base Excess POC ABG pCO2 ABG Hemoglobin ABG Oxyhemoglobin ABG Sodium ABG Chloride ABG Glucose Oxyhemoglobin Sodium 148 H Potassium 5.1 H Chloride 107.6 H Carbon Dioxide BUN 27 H Creatinine 0.7 L Glucose 155 H POC Glucose 157 H Lactic Acid Calcium Phosphorus Magnesium AST ALT Lactate Dehydrogenase Total Bilirubin Direct Bilirubin CK-MB (CK-2) C-Reactive Protein NT-Pro-B Natriuret Pep Total Protein Albumin Arterial Blood Glucose Urine WBC (Auto) Urine Creatinine 12/07/19 12/07/19 12/07/19 00:13 05:34 11:33 WBC RBC Hgb Hct MCHC RDW MCV MCH Lymph % (Auto) [place] % (Auto) [place] # Eos # Lymph # (Auto) [place] # (Auto) Eos # (Auto) Seg Neutrophils % Seg Neuts % (Manual) Baso # (Auto) Lymphocytes % (Manual) Monocytes % (Manual) Eosinophils % (Manual) Basophils % (Manual) Seg Neutrophils # Seg Neutrophils # Man Lymphocytes # (Manual) Monocytes # (Manual) Eosinophils # (Manual) Nucleated RBC % Basophils # (Manual) PT INR APTT Heparin Anti-Xa Level ABG pH POC ABG pO2 ABG pO2 ABG HCO3 ABG O2 Saturation ABG Base Excess POC ABG pCO2 ABG Hemoglobin ABG Oxyhemoglobin ABG Sodium ABG Chloride ABG Glucose Oxyhemoglobin Sodium Potassium Chloride Carbon Dioxide BUN Creatinine Glucose POC Glucose 142 H 111 H 169 H Lactic Acid Calcium Phosphorus Magnesium AST ALT Lactate Dehydrogenase Total Bilirubin Direct Bilirubin CK-MB (CK-2) C-Reactive Protein NT-Pro-B Natriuret Pep Total Protein Albumin Arterial Blood Glucose Urine WBC (Auto) Urine Creatinine 12/07/19 12/07/19 12/07/19 12:41 13:25 18:19 WBC 12.4 H RBC 3.53 L Hgb 10.2 L Hct 32.1 L MCHC RDW 15.3 H MCV MCH Lymph % (Auto) 10.6 L [place] % (Auto) 7.8 H [place] # 1.0 H Eos # Lymph # (Auto) [place] # (Auto) Eos # (Auto) Seg Neutrophils % 77.6 H Seg Neuts % (Manual) Baso # (Auto) Lymphocytes % (Manual) Monocytes % (Manual) Eosinophils % (Manual) Basophils % (Manual) Seg Neutrophils # 9.6 H Seg Neutrophils # Man Lymphocytes # (Manual) Monocytes # (Manual) Eosinophils # (Manual) Nucleated RBC % Basophils # (Manual) PT INR APTT Heparin Anti-Xa Level ABG pH POC ABG pO2 ABG pO2 ABG HCO3 ABG O2 Saturation ABG Base Excess POC ABG pCO2 ABG Hemoglobin ABG Oxyhemoglobin ABG Sodium ABG Chloride ABG Glucose Oxyhemoglobin Sodium 149 H Potassium Chloride 108.4 H Carbon Dioxide BUN 26 H Creatinine 0.6 L Glucose 149 H POC Glucose 164 H Lactic Acid Calcium Phosphorus Magnesium 2.60 H AST 121 H ALT 145 H Lactate Dehydrogenase Total Bilirubin Direct Bilirubin CK-MB (CK-2) C-Reactive Protein NT-Pro-B Natriuret Pep Total Protein Albumin 2.6 L Arterial Blood Glucose Urine WBC (Auto) Urine Creatinine 12/07/19 12/08/19 12/08/19 22:25 00:02 03:55 WBC 13.3 H RBC 3.40 L Hgb 9.7 L Hct 30.8 L MCHC 31 L RDW 15.5 H MCV MCH Lymph % (Auto) [place] % (Auto) 8.1 H [place] # 1.1 H Eos # Lymph # (Auto) [place] # (Auto) Eos # (Auto) Seg Neutrophils % 73.0 H Seg Neuts % (Manual) Baso # (Auto) Lymphocytes % (Manual) Monocytes % (Manual) Eosinophils % (Manual) Basophils % (Manual) Seg Neutrophils # 9.7 H Seg Neutrophils # Man Lymphocytes # (Manual) Monocytes # (Manual) Eosinophils # (Manual) Nucleated RBC % Basophils # (Manual) PT INR APTT Heparin Anti-Xa Level 0.12 L ABG pH POC ABG pO2 ABG pO2 ABG HCO3 ABG O2 Saturation ABG Base Excess POC ABG pCO2 ABG Hemoglobin ABG Oxyhemoglobin ABG Sodium ABG Chloride ABG Glucose Oxyhemoglobin Sodium Potassium Chloride Carbon Dioxide BUN Creatinine Glucose POC Glucose 151 H Lactic Acid Calcium Phosphorus Magnesium AST ALT Lactate Dehydrogenase Total Bilirubin Direct Bilirubin CK-MB (CK-2) C-Reactive Protein NT-Pro-B Natriuret Pep Total Protein Albumin Arterial Blood Glucose Urine WBC (Auto) Urine Creatinine 12/08/19 12/08/19 12/08/19 03:55 05:21 06:01 WBC RBC Hgb Hct MCHC RDW MCV MCH Lymph % (Auto) [place] % (Auto) [place] # Eos # Lymph # (Auto) [place] # (Auto) Eos # (Auto) Seg Neutrophils % Seg Neuts % (Manual) Baso # (Auto) Lymphocytes % (Manual) Monocytes % (Manual) Eosinophils % (Manual) Basophils % (Manual) Seg Neutrophils # Seg Neutrophils # Man Lymphocytes # (Manual) Monocytes # (Manual) Eosinophils # (Manual) Nucleated RBC % Basophils # (Manual) PT INR APTT Heparin Anti-Xa Level 0.20 L ABG pH POC ABG pO2 ABG pO2 ABG HCO3 ABG O2 Saturation ABG Base Excess POC ABG pCO2 ABG Hemoglobin ABG Oxyhemoglobin ABG Sodium ABG Chloride ABG Glucose Oxyhemoglobin Sodium 149 H Potassium Chloride 108.0 H Carbon Dioxide BUN 28 H Creatinine 0.6 L Glucose 144 H POC Glucose 143 H Lactic Acid Calcium Phosphorus Magnesium AST 98 H ALT 145 H Lactate Dehydrogenase Total Bilirubin Direct Bilirubin CK-MB (CK-2) C-Reactive Protein NT-Pro-B Natriuret Pep Total Protein 6.0 L Albumin 2.4 L Arterial Blood Glucose Urine WBC (Auto) Urine Creatinine 12/08/19 12/08/19 12/08/19 12:08 18:11 23:53 WBC RBC Hgb Hct MCHC RDW MCV MCH Lymph % (Auto) [place] % (Auto) [place] # Eos # Lymph # (Auto) [place] # (Auto) Eos # (Auto) Seg Neutrophils % Seg Neuts % (Manual) Baso # (Auto) Lymphocytes % (Manual) Monocytes % (Manual) Eosinophils % (Manual) Basophils % (Manual) Seg Neutrophils # Seg Neutrophils # Man Lymphocytes # (Manual) Monocytes # (Manual) Eosinophils # (Manual) Nucleated RBC % Basophils # (Manual) PT INR APTT Heparin Anti-Xa Level ABG pH POC ABG pO2 ABG pO2 ABG HCO3 ABG O2 Saturation ABG Base Excess POC ABG pCO2 ABG Hemoglobin ABG Oxyhemoglobin ABG Sodium ABG Chloride ABG Glucose Oxyhemoglobin Sodium Potassium Chloride Carbon Dioxide BUN Creatinine Glucose POC Glucose 172 H 122 H 162 H Lactic Acid Calcium Phosphorus Magnesium AST ALT Lactate Dehydrogenase Total Bilirubin Direct Bilirubin CK-MB (CK-2) C-Reactive Protein NT-Pro-B Natriuret Pep Total Protein Albumin Arterial Blood Glucose Urine WBC (Auto) Urine Creatinine 12/09/19 12/09/19 12/09/19 04:03 04:03 05:53 WBC RBC Hgb 9.1 L Hct 28.9 L MCHC RDW MCV MCH Lymph % (Auto) [place] % (Auto) [place] # Eos # Lymph # (Auto) [place] # (Auto) Eos # (Auto) Seg Neutrophils % Seg Neuts % (Manual) Baso # (Auto) Lymphocytes % (Manual) Monocytes % (Manual) Eosinophils % (Manual) Basophils % (Manual) Seg Neutrophils # Seg Neutrophils # Man Lymphocytes # (Manual) Monocytes # (Manual) Eosinophils # (Manual) Nucleated RBC % Basophils # (Manual) PT INR APTT Heparin Anti-Xa Level 0.15 L ABG pH POC ABG pO2 ABG pO2 ABG HCO3 ABG O2 Saturation ABG Base Excess POC ABG pCO2 ABG Hemoglobin ABG Oxyhemoglobin ABG Sodium ABG Chloride ABG Glucose Oxyhemoglobin Sodium Potassium Chloride Carbon Dioxide BUN Creatinine Glucose POC Glucose 124 H Lactic Acid Calcium Phosphorus Magnesium AST ALT Lactate Dehydrogenase Total Bilirubin Direct Bilirubin CK-MB (CK-2) C-Reactive Protein NT-Pro-B Natriuret Pep Total Protein Albumin Arterial Blood Glucose Urine WBC (Auto) Urine Creatinine 12/09/19 12/09/19 12/10/19 09:43 12:41 00:13 WBC RBC Hgb Hct MCHC RDW MCV MCH Lymph % (Auto) [place] % (Auto) [place] # Eos # Lymph # (Auto) [place] # (Auto) Eos # (Auto) Seg Neutrophils % Seg Neuts % (Manual) Baso # (Auto) Lymphocytes % (Manual) Monocytes % (Manual) Eosinophils % (Manual) Basophils % (Manual) Seg Neutrophils # Seg Neutrophils # Man Lymphocytes # (Manual) Monocytes # (Manual) Eosinophils # (Manual) Nucleated RBC % Basophils # (Manual) PT INR APTT Heparin Anti-Xa Level ABG pH POC ABG pO2 ABG pO2 ABG HCO3 ABG O2 Saturation ABG Base Excess POC ABG pCO2 ABG Hemoglobin ABG Oxyhemoglobin ABG Sodium ABG Chloride ABG Glucose Oxyhemoglobin Sodium Potassium Chloride Carbon Dioxide BUN 25 H Creatinine 0.6 L Glucose 131 H POC Glucose 109 H 120 H Lactic Acid Calcium Phosphorus Magnesium AST ALT Lactate Dehydrogenase Total Bilirubin Direct Bilirubin CK-MB (CK-2) C-Reactive Protein NT-Pro-B Natriuret Pep Total Protein Albumin Arterial Blood Glucose Urine WBC (Auto) Urine Creatinine 12/10/19 12/10/19 12/10/19 04:14 04:14 12:00 WBC 13.3 H RBC 3.34 L Hgb 9.6 L Hct 30.4 L MCHC RDW 15.4 H MCV MCH Lymph % (Auto) [place] % (Auto) [place] # Eos # Lymph # (Auto) [place] # (Auto) Eos # (Auto) Seg Neutrophils % Seg Neuts % (Manual) 75.0 H Baso # (Auto) Lymphocytes % (Manual) 13.0 L Monocytes % (Manual) 8.0 H Eosinophils % (Manual) Basophils % (Manual) 2.0 H Seg Neutrophils # Seg Neutrophils # Man 10.0 H Lymphocytes # (Manual) Monocytes # (Manual) 1.1 H Eosinophils # (Manual) Nucleated RBC % Basophils # (Manual) 0.3 H PT INR APTT Heparin Anti-Xa Level ABG pH POC ABG pO2 ABG pO2 ABG HCO3 ABG O2 Saturation ABG Base Excess POC ABG pCO2 ABG Hemoglobin ABG Oxyhemoglobin ABG Sodium ABG Chloride ABG Glucose Oxyhemoglobin Sodium 147 H Potassium Chloride 108.3 H Carbon Dioxide BUN 21 H Creatinine 0.6 L Glucose 104 H POC Glucose 133 H Lactic Acid Calcium Phosphorus Magnesium AST ALT Lactate Dehydrogenase Total Bilirubin Direct Bilirubin CK-MB (CK-2) C-Reactive Protein NT-Pro-B Natriuret Pep Total Protein Albumin Arterial Blood Glucose Urine WBC (Auto) Urine Creatinine 12/10/19 12/10/19 12/11/19 18:44 21:20 00:08 WBC 14.9 H RBC 3.36 L Hgb 9.6 L Hct 30.5 L MCHC RDW 15.4 H MCV MCH Lymph % (Auto) [place] % (Auto) [place] # Eos # Lymph # (Auto) [place] # (Auto) Eos # (Auto) Seg Neutrophils % Seg Neuts % (Manual) Baso # (Auto) Lymphocytes % (Manual) Monocytes % (Manual) Eosinophils % (Manual) Basophils % (Manual) Seg Neutrophils # Seg Neutrophils # Man Lymphocytes # (Manual) Monocytes # (Manual) Eosinophils # (Manual) Nucleated RBC % Basophils # (Manual) PT INR APTT Heparin Anti-Xa Level ABG pH POC ABG pO2 ABG pO2 ABG HCO3 ABG O2 Saturation ABG Base Excess POC ABG pCO2 ABG Hemoglobin ABG Oxyhemoglobin ABG Sodium ABG Chloride ABG Glucose Oxyhemoglobin Sodium Potassium Chloride Carbon Dioxide BUN Creatinine Glucose POC Glucose 119 H 134 H Lactic Acid Calcium Phosphorus Magnesium AST ALT Lactate Dehydrogenase Total Bilirubin Direct Bilirubin CK-MB (CK-2) C-Reactive Protein NT-Pro-B Natriuret Pep Total Protein Albumin Arterial Blood Glucose Urine WBC (Auto) Urine Creatinine 12/11/19 12/11/19 12/11/19 03:54 07:28 08:36 WBC 11.9 H RBC 3.25 L Hgb 9.6 L Hct 29.2 L MCHC RDW 15.7 H MCV MCH Lymph % (Auto) [place] % (Auto) [place] # Eos # Lymph # (Auto) [place] # (Auto) Eos # (Auto) Seg Neutrophils % Seg Neuts % (Manual) Baso # (Auto) Lymphocytes % (Manual) Monocytes % (Manual) Eosinophils % (Manual) Basophils % (Manual) Seg Neutrophils # Seg Neutrophils # Man Lymphocytes # (Manual) Monocytes # (Manual) Eosinophils # (Manual) Nucleated RBC % Basophils # (Manual) PT INR APTT Heparin Anti-Xa Level 0.10 L 0.16 L ABG pH POC ABG pO2 ABG pO2 ABG HCO3 ABG O2 Saturation ABG Base Excess POC ABG pCO2 ABG Hemoglobin ABG Oxyhemoglobin ABG Sodium ABG Chloride ABG Glucose Oxyhemoglobin Sodium Potassium Chloride Carbon Dioxide BUN Creatinine Glucose POC Glucose Lactic Acid Calcium Phosphorus Magnesium AST ALT Lactate Dehydrogenase Total Bilirubin Direct Bilirubin CK-MB (CK-2) C-Reactive Protein NT-Pro-B Natriuret Pep Total Protein Albumin Arterial Blood Glucose Urine WBC (Auto) Urine Creatinine 12/11/19 12/11/19 12/11/19 08:36 11:45 17:15 WBC RBC Hgb Hct MCHC RDW MCV MCH Lymph % (Auto) [place] % (Auto) [place] # Eos # Lymph # (Auto) [place] # (Auto) Eos # (Auto) Seg Neutrophils % Seg Neuts % (Manual) Baso # (Auto) Lymphocytes % (Manual) Monocytes % (Manual) Eosinophils % (Manual) Basophils % (Manual) Seg Neutrophils # Seg Neutrophils # Man Lymphocytes # (Manual) Monocytes # (Manual) Eosinophils # (Manual) Nucleated RBC % Basophils # (Manual) PT INR APTT Heparin Anti-Xa Level ABG pH POC ABG pO2 ABG pO2 ABG HCO3 ABG O2 Saturation ABG Base Excess POC ABG pCO2 ABG Hemoglobin ABG Oxyhemoglobin ABG Sodium ABG Chloride ABG Glucose Oxyhemoglobin Sodium Potassium Chloride Carbon Dioxide BUN Creatinine 0.5 L Glucose 128 H POC Glucose 136 H 109 H Lactic Acid Calcium Phosphorus Magnesium AST ALT Lactate Dehydrogenase Total Bilirubin Direct Bilirubin CK-MB (CK-2) C-Reactive Protein NT-Pro-B Natriuret Pep Total Protein Albumin Arterial Blood Glucose Urine WBC (Auto) Urine Creatinine 12/12/19 12/12/19 12/12/19 00:03 05:53 05:53 WBC RBC Hgb 8.8 L Hct 27.6 L MCHC RDW MCV MCH Lymph % (Auto) [place] % (Auto) [place] # Eos # Lymph # (Auto) [place] # (Auto) Eos # (Auto) Seg Neutrophils % Seg Neuts % (Manual) Baso # (Auto) Lymphocytes % (Manual) Monocytes % (Manual) Eosinophils % (Manual) Basophils % (Manual) Seg Neutrophils # Seg Neutrophils # Man Lymphocytes # (Manual) Monocytes # (Manual) Eosinophils # (Manual) Nucleated RBC % Basophils # (Manual) PT INR APTT Heparin Anti-Xa Level 0.22 L ABG pH POC ABG pO2 ABG pO2 ABG HCO3 ABG O2 Saturation ABG Base Excess POC ABG pCO2 ABG Hemoglobin ABG Oxyhemoglobin ABG Sodium ABG Chloride ABG Glucose Oxyhemoglobin Sodium Potassium Chloride Carbon Dioxide BUN Creatinine Glucose POC Glucose 116 H Lactic Acid Calcium Phosphorus Magnesium AST ALT Lactate Dehydrogenase Total Bilirubin Direct Bilirubin CK-MB (CK-2) C-Reactive Protein NT-Pro-B Natriuret Pep Total Protein Albumin Arterial Blood Glucose Urine WBC (Auto) Urine Creatinine 12/12/19 12/12/19 12/12/19 09:38 12:18 17:44 WBC RBC Hgb Hct MCHC RDW MCV MCH Lymph % (Auto) [place] % (Auto) [place] # Eos # Lymph # (Auto) [place] # (Auto) Eos # (Auto) Seg Neutrophils % Seg Neuts % (Manual) Baso # (Auto) Lymphocytes % (Manual) Monocytes % (Manual) Eosinophils % (Manual) Basophils % (Manual) Seg Neutrophils # Seg Neutrophils # Man Lymphocytes # (Manual) Monocytes # (Manual) Eosinophils # (Manual) Nucleated RBC % Basophils # (Manual) PT INR APTT Heparin Anti-Xa Level ABG pH POC ABG pO2 ABG pO2 ABG HCO3 ABG O2 Saturation ABG Base Excess POC ABG pCO2 ABG Hemoglobin ABG Oxyhemoglobin ABG Sodium ABG Chloride ABG Glucose Oxyhemoglobin Sodium Potassium Chloride Carbon Dioxide BUN Creatinine Glucose POC Glucose 115 H 146 H 146 H Lactic Acid Calcium Phosphorus Magnesium AST ALT Lactate Dehydrogenase Total Bilirubin Direct Bilirubin CK-MB (CK-2) C-Reactive Protein NT-Pro-B Natriuret Pep Total Protein Albumin Arterial Blood Glucose Urine WBC (Auto) Urine Creatinine 12/12/19 12/13/19 12/13/19 23:33 05:32 05:32 WBC 13.1 H RBC 3.27 L Hgb 9.5 L Hct 29.3 L MCHC RDW 15.6 H MCV MCH Lymph % (Auto) [place] % (Auto) [place] # Eos # Lymph # (Auto) [place] # (Auto) Eos # (Auto) Seg Neutrophils % Seg Neuts % (Manual) 74.0 H Baso # (Auto) Lymphocytes % (Manual) 8.0 L Monocytes % (Manual) 9.0 H Eosinophils % (Manual) 5.0 H Basophils % (Manual) Seg Neutrophils # Seg Neutrophils # Man 9.7 H Lymphocytes # (Manual) 1.0 L Monocytes # (Manual) 1.2 H Eosinophils # (Manual) 0.7 H Nucleated RBC % Basophils # (Manual) PT INR APTT Heparin Anti-Xa Level 0.20 L ABG pH POC ABG pO2 ABG pO2 ABG HCO3 ABG O2 Saturation ABG Base Excess POC ABG pCO2 ABG Hemoglobin ABG Oxyhemoglobin ABG Sodium ABG Chloride ABG Glucose Oxyhemoglobin Sodium Potassium Chloride Carbon Dioxide BUN Creatinine Glucose POC Glucose 126 H Lactic Acid Calcium Phosphorus Magnesium AST ALT Lactate Dehydrogenase Total Bilirubin Direct Bilirubin CK-MB (CK-2) C-Reactive Protein NT-Pro-B Natriuret Pep Total Protein Albumin Arterial Blood Glucose Urine WBC (Auto) Urine Creatinine 12/13/19 12/13/19 12/13/19 05:32 05:46 11:57 WBC RBC Hgb Hct MCHC RDW MCV MCH Lymph % (Auto) [place] % (Auto) [place] # Eos # Lymph # (Auto) [place] # (Auto) Eos # (Auto) Seg Neutrophils % Seg Neuts % (Manual) Baso # (Auto) Lymphocytes % (Manual) Monocytes % (Manual) Eosinophils % (Manual) Basophils % (Manual) Seg Neutrophils # Seg Neutrophils # Man Lymphocytes # (Manual) Monocytes # (Manual) Eosinophils # (Manual) Nucleated RBC % Basophils # (Manual) PT INR APTT Heparin Anti-Xa Level ABG pH POC ABG pO2 ABG pO2 ABG HCO3 ABG O2 Saturation ABG Base Excess POC ABG pCO2 ABG Hemoglobin ABG Oxyhemoglobin ABG Sodium ABG Chloride ABG Glucose Oxyhemoglobin Sodium Potassium Chloride Carbon Dioxide 31 H BUN Creatinine 0.6 L Glucose 114 H POC Glucose 118 H 133 H Lactic Acid Calcium Phosphorus Magnesium AST ALT Lactate Dehydrogenase Total Bilirubin Direct Bilirubin CK-MB (CK-2) C-Reactive Protein NT-Pro-B Natriuret Pep Total Protein Albumin Arterial Blood Glucose Urine WBC (Auto) Urine Creatinine 12/13/19 12/13/19 12/14/19 17:44 23:46 05:32 WBC RBC Hgb Hct MCHC RDW MCV MCH Lymph % (Auto) [place] % (Auto) [place] # Eos # Lymph # (Auto) [place] # (Auto) Eos # (Auto) Seg Neutrophils % Seg Neuts % (Manual) Baso # (Auto) Lymphocytes % (Manual) Monocytes % (Manual) Eosinophils % (Manual) Basophils % (Manual) Seg Neutrophils # Seg Neutrophils # Man Lymphocytes # (Manual) Monocytes # (Manual) Eosinophils # (Manual) Nucleated RBC % Basophils # (Manual) PT INR APTT Heparin Anti-Xa Level ABG pH POC ABG pO2 ABG pO2 ABG HCO3 ABG O2 Saturation ABG Base Excess POC ABG pCO2 ABG Hemoglobin ABG Oxyhemoglobin ABG Sodium ABG Chloride ABG Glucose Oxyhemoglobin Sodium Potassium Chloride Carbon Dioxide BUN Creatinine Glucose POC Glucose 161 H 126 H 139 H Lactic Acid Calcium Phosphorus Magnesium AST ALT Lactate Dehydrogenase Total Bilirubin Direct Bilirubin CK-MB (CK-2) C-Reactive Protein NT-Pro-B Natriuret Pep Total Protein Albumin Arterial Blood Glucose Urine WBC (Auto) Urine Creatinine 12/14/19 12/14/19 12/14/19 06:03 06:03 09:37 WBC RBC Hgb 9.6 L Hct 30.4 L MCHC RDW MCV MCH Lymph % (Auto) [place] % (Auto) [place] # Eos # Lymph # (Auto) [place] # (Auto) Eos # (Auto) Seg Neutrophils % Seg Neuts % (Manual) Baso # (Auto) Lymphocytes % (Manual) Monocytes % (Manual) Eosinophils % (Manual) Basophils % (Manual) Seg Neutrophils # Seg Neutrophils # Man Lymphocytes # (Manual) Monocytes # (Manual) Eosinophils # (Manual) Nucleated RBC % Basophils # (Manual) PT INR APTT Heparin Anti-Xa Level 0.24 L ABG pH POC ABG pO2 ABG pO2 ABG HCO3 ABG O2 Saturation ABG Base Excess POC ABG pCO2 ABG Hemoglobin ABG Oxyhemoglobin ABG Sodium ABG Chloride ABG Glucose Oxyhemoglobin Sodium Potassium Chloride Carbon Dioxide BUN Creatinine 0.6 L Glucose 162 H POC Glucose Lactic Acid Calcium Phosphorus Magnesium AST 71 H ALT 118 H Lactate Dehydrogenase Total Bilirubin Direct Bilirubin CK-MB (CK-2) C-Reactive Protein NT-Pro-B Natriuret Pep Total Protein 6.2 L Albumin 2.3 L Arterial Blood Glucose Urine WBC (Auto) Urine Creatinine 12/14/19 12/14/19 12/15/19 12:06 18:18 00:19 WBC RBC Hgb Hct MCHC RDW MCV MCH Lymph % (Auto) [place] % (Auto) [place] # Eos # Lymph # (Auto) [place] # (Auto) Eos # (Auto) Seg Neutrophils % Seg Neuts % (Manual) Baso # (Auto) Lymphocytes % (Manual) Monocytes % (Manual) Eosinophils % (Manual) Basophils % (Manual) Seg Neutrophils # Seg Neutrophils # Man Lymphocytes # (Manual) Monocytes # (Manual) Eosinophils # (Manual) Nucleated RBC % Basophils # (Manual) PT INR APTT Heparin Anti-Xa Level ABG pH POC ABG pO2 ABG pO2 ABG HCO3 ABG O2 Saturation ABG Base Excess POC ABG pCO2 ABG Hemoglobin ABG Oxyhemoglobin ABG Sodium ABG Chloride ABG Glucose Oxyhemoglobin Sodium Potassium Chloride Carbon Dioxide BUN Creatinine Glucose POC Glucose 147 H 166 H 123 H Lactic Acid Calcium Phosphorus Magnesium AST ALT Lactate Dehydrogenase Total Bilirubin Direct Bilirubin CK-MB (CK-2) C-Reactive Protein NT-Pro-B Natriuret Pep Total Protein Albumin Arterial Blood Glucose Urine WBC (Auto) Urine Creatinine 12/15/19 12/15/19 12/15/19 05:28 05:29 05:29 WBC 14.9 H RBC 3.19 L Hgb 9.1 L Hct 28.7 L MCHC RDW 16.0 H MCV MCH Lymph % (Auto) [place] % (Auto) [place] # Eos # Lymph # (Auto) [place] # (Auto) Eos # (Auto) Seg Neutrophils % Seg Neuts % (Manual) Baso # (Auto) Lymphocytes % (Manual) Monocytes % (Manual) Eosinophils % (Manual) Basophils % (Manual) Seg Neutrophils # Seg Neutrophils # Man Lymphocytes # (Manual) Monocytes # (Manual) Eosinophils # (Manual) Nucleated RBC % Basophils # (Manual) PT INR APTT Heparin Anti-Xa Level 0.19 L ABG pH POC ABG pO2 ABG pO2 ABG HCO3 ABG O2 Saturation ABG Base Excess POC ABG pCO2 ABG Hemoglobin ABG Oxyhemoglobin ABG Sodium ABG Chloride ABG Glucose Oxyhemoglobin Sodium Potassium Chloride Carbon Dioxide BUN Creatinine 0.6 L Glucose 110 H POC Glucose Lactic Acid Calcium Phosphorus Magnesium AST ALT Lactate Dehydrogenase Total Bilirubin Direct Bilirubin CK-MB (CK-2) C-Reactive Protein NT-Pro-B Natriuret Pep Total Protein Albumin Arterial Blood Glucose Urine WBC (Auto) Urine Creatinine 12/15/19 12/15/19 12/15/19 05:53 11:50 17:26 WBC RBC Hgb Hct MCHC RDW MCV MCH Lymph % (Auto) [place] % (Auto) [place] # Eos # Lymph # (Auto) [place] # (Auto) Eos # (Auto) Seg Neutrophils % Seg Neuts % (Manual) Baso # (Auto) Lymphocytes % (Manual) Monocytes % (Manual) Eosinophils % (Manual) Basophils % (Manual) Seg Neutrophils # Seg Neutrophils # Man Lymphocytes # (Manual) Monocytes # (Manual) Eosinophils # (Manual) Nucleated RBC % Basophils # (Manual) PT INR APTT Heparin Anti-Xa Level ABG pH POC ABG pO2 ABG pO2 ABG HCO3 ABG O2 Saturation ABG Base Excess POC ABG pCO2 ABG Hemoglobin ABG Oxyhemoglobin ABG Sodium ABG Chloride ABG Glucose Oxyhemoglobin Sodium Potassium Chloride Carbon Dioxide BUN Creatinine Glucose POC Glucose 119 H 132 H 128 H Lactic Acid Calcium Phosphorus Magnesium AST ALT Lactate Dehydrogenase Total Bilirubin Direct Bilirubin CK-MB (CK-2) C-Reactive Protein NT-Pro-B Natriuret Pep Total Protein Albumin Arterial Blood Glucose Urine WBC (Auto) Urine Creatinine 12/15/19 12/16/19 12/16/19 23:11 05:30 05:46 WBC RBC Hgb 8.8 L Hct 27.9 L MCHC RDW MCV MCH Lymph % (Auto) [place] % (Auto) [place] # Eos # Lymph # (Auto) [place] # (Auto) Eos # (Auto) Seg Neutrophils % Seg Neuts % (Manual) Baso # (Auto) Lymphocytes % (Manual) Monocytes % (Manual) Eosinophils % (Manual) Basophils % (Manual) Seg Neutrophils # Seg Neutrophils # Man Lymphocytes # (Manual) Monocytes # (Manual) Eosinophils # (Manual) Nucleated RBC % Basophils # (Manual) PT INR APTT Heparin Anti-Xa Level ABG pH POC ABG pO2 ABG pO2 ABG HCO3 ABG O2 Saturation ABG Base Excess POC ABG pCO2 ABG Hemoglobin ABG Oxyhemoglobin ABG Sodium ABG Chloride ABG Glucose Oxyhemoglobin Sodium Potassium Chloride Carbon Dioxide BUN Creatinine Glucose POC Glucose 150 H 134 H Lactic Acid Calcium Phosphorus Magnesium AST ALT Lactate Dehydrogenase Total Bilirubin Direct Bilirubin CK-MB (CK-2) C-Reactive Protein NT-Pro-B Natriuret Pep Total Protein Albumin Arterial Blood Glucose Urine WBC (Auto) Urine Creatinine 12/16/19 12/16/19 12/16/19 05:46 05:46 11:44 WBC RBC Hgb Hct MCHC RDW MCV MCH Lymph % (Auto) [place] % (Auto) [place] # Eos # Lymph # (Auto) [place] # (Auto) Eos # (Auto) Seg Neutrophils % Seg Neuts % (Manual) Baso # (Auto) Lymphocytes % (Manual) Monocytes % (Manual) Eosinophils % (Manual) Basophils % (Manual) Seg Neutrophils # Seg Neutrophils # Man Lymphocytes # (Manual) Monocytes # (Manual) Eosinophils # (Manual) Nucleated RBC % Basophils # (Manual) PT INR APTT Heparin Anti-Xa Level 0.20 L ABG pH POC ABG pO2 ABG pO2 ABG HCO3 ABG O2 Saturation ABG Base Excess POC ABG pCO2 ABG Hemoglobin ABG Oxyhemoglobin ABG Sodium ABG Chloride ABG Glucose Oxyhemoglobin Sodium Potassium Chloride Carbon Dioxide 31 H BUN Creatinine 0.5 L Glucose 147 H POC Glucose 164 H Lactic Acid Calcium Phosphorus Magnesium AST ALT Lactate Dehydrogenase Total Bilirubin Direct Bilirubin CK-MB (CK-2) C-Reactive Protein NT-Pro-B Natriuret Pep Total Protein Albumin Arterial Blood Glucose Urine WBC (Auto) Urine Creatinine 12/16/19 12/16/19 12/17/19 17:17 23:49 05:30 WBC 13.9 H RBC 3.27 L Hgb 9.4 L Hct 29.2 L MCHC RDW 16.0 H MCV MCH Lymph % (Auto) [place] % (Auto) 8.8 H [place] # Eos # Lymph # (Auto) [place] # (Auto) 1.2 H Eos # (Auto) 0.5 H Seg Neutrophils % 70.5 H Seg Neuts % (Manual) Baso # (Auto) 0.2 H Lymphocytes % (Manual) Monocytes % (Manual) Eosinophils % (Manual) Basophils % (Manual) Seg Neutrophils # 9.8 H Seg Neutrophils # Man Lymphocytes # (Manual) Monocytes # (Manual) Eosinophils # (Manual) Nucleated RBC % Basophils # (Manual) PT INR APTT Heparin Anti-Xa Level ABG pH POC ABG pO2 ABG pO2 ABG HCO3 ABG O2 Saturation ABG Base Excess POC ABG pCO2 ABG Hemoglobin ABG Oxyhemoglobin ABG Sodium ABG Chloride ABG Glucose Oxyhemoglobin Sodium Potassium Chloride Carbon Dioxide BUN Creatinine Glucose POC Glucose 162 H 144 H Lactic Acid Calcium Phosphorus Magnesium AST ALT Lactate Dehydrogenase Total Bilirubin Direct Bilirubin CK-MB (CK-2) C-Reactive Protein NT-Pro-B Natriuret Pep Total Protein Albumin Arterial Blood Glucose Urine WBC (Auto) Urine Creatinine 12/17/19 12/17/19 12/17/19 05:30 06:06 11:50 WBC RBC Hgb Hct MCHC RDW MCV MCH Lymph % (Auto) [place] % (Auto) [place] # Eos # Lymph # (Auto) [place] # (Auto) Eos # (Auto) Seg Neutrophils % Seg Neuts % (Manual) Baso # (Auto) Lymphocytes % (Manual) Monocytes % (Manual) Eosinophils % (Manual) Basophils % (Manual) Seg Neutrophils # Seg Neutrophils # Man Lymphocytes # (Manual) Monocytes # (Manual) Eosinophils # (Manual) Nucleated RBC % Basophils # (Manual) PT INR APTT Heparin Anti-Xa Level ABG pH POC ABG pO2 ABG pO2 ABG HCO3 ABG O2 Saturation ABG Base Excess POC ABG pCO2 ABG Hemoglobin ABG Oxyhemoglobin ABG Sodium ABG Chloride ABG Glucose Oxyhemoglobin Sodium Potassium Chloride 97.4 L Carbon Dioxide 32 H BUN Creatinine 0.5 L Glucose 135 H POC Glucose 151 H 140 H Lactic Acid Calcium Phosphorus Magnesium AST ALT Lactate Dehydrogenase Total Bilirubin Direct Bilirubin CK-MB (CK-2) C-Reactive Protein NT-Pro-B Natriuret Pep Total Protein Albumin Arterial Blood Glucose Urine WBC (Auto) Urine Creatinine 12/17/19 12/17/19 12/18/19 17:50 23:46 05:17 WBC RBC Hgb 8.8 L Hct 28.0 L MCHC RDW MCV MCH Lymph % (Auto) [place] % (Auto) [place] # Eos # Lymph # (Auto) [place] # (Auto) Eos # (Auto) Seg Neutrophils % Seg Neuts % (Manual) Baso # (Auto) Lymphocytes % (Manual) Monocytes % (Manual) Eosinophils % (Manual) Basophils % (Manual) Seg Neutrophils # Seg Neutrophils # Man Lymphocytes # (Manual) Monocytes # (Manual) Eosinophils # (Manual) Nucleated RBC % Basophils # (Manual) PT INR APTT Heparin Anti-Xa Level ABG pH POC ABG pO2 ABG pO2 ABG HCO3 ABG O2 Saturation ABG Base Excess POC ABG pCO2 ABG Hemoglobin ABG Oxyhemoglobin ABG Sodium ABG Chloride ABG Glucose Oxyhemoglobin Sodium Potassium Chloride Carbon Dioxide BUN Creatinine Glucose POC Glucose 158 H 150 H Lactic Acid Calcium Phosphorus Magnesium AST ALT Lactate Dehydrogenase Total Bilirubin Direct Bilirubin CK-MB (CK-2) C-Reactive Protein NT-Pro-B Natriuret Pep Total Protein Albumin Arterial Blood Glucose Urine WBC (Auto) Urine Creatinine 12/18/19 12/18/19 12/18/19 05:17 05:49 11:12 WBC RBC Hgb Hct MCHC RDW MCV MCH Lymph % (Auto) [place] % (Auto) [place] # Eos # Lymph # (Auto) [place] # (Auto) Eos # (Auto) Seg Neutrophils % Seg Neuts % (Manual) Baso # (Auto) Lymphocytes % (Manual) Monocytes % (Manual) Eosinophils % (Manual) Basophils % (Manual) Seg Neutrophils # Seg Neutrophils # Man Lymphocytes # (Manual) Monocytes # (Manual) Eosinophils # (Manual) Nucleated RBC % Basophils # (Manual) PT INR APTT Heparin Anti-Xa Level 0.16 L ABG pH POC ABG pO2 ABG pO2 ABG HCO3 ABG O2 Saturation ABG Base Excess POC ABG pCO2 ABG Hemoglobin ABG Oxyhemoglobin ABG Sodium ABG Chloride ABG Glucose Oxyhemoglobin Sodium Potassium Chloride Carbon Dioxide BUN Creatinine Glucose POC Glucose 127 H 191 H Lactic Acid Calcium Phosphorus Magnesium AST ALT Lactate Dehydrogenase Total Bilirubin Direct Bilirubin CK-MB (CK-2) C-Reactive Protein NT-Pro-B Natriuret Pep Total Protein Albumin Arterial Blood Glucose Urine WBC (Auto) Urine Creatinine 12/18/19 12/18/19 12/19/19 17:03 20:16 00:08 WBC RBC Hgb Hct MCHC RDW MCV MCH Lymph % (Auto) [place] % (Auto) [place] # Eos # Lymph # (Auto) [place] # (Auto) Eos # (Auto) Seg Neutrophils % Seg Neuts % (Manual) Baso # (Auto) Lymphocytes % (Manual) Monocytes % (Manual) Eosinophils % (Manual) Basophils % (Manual) Seg Neutrophils # Seg Neutrophils # Man Lymphocytes # (Manual) Monocytes # (Manual) Eosinophils # (Manual) Nucleated RBC % Basophils # (Manual) PT INR APTT Heparin Anti-Xa Level ABG pH POC ABG pO2 ABG pO2 ABG HCO3 ABG O2 Saturation ABG Base Excess POC ABG pCO2 ABG Hemoglobin ABG Oxyhemoglobin ABG Sodium ABG Chloride ABG Glucose Oxyhemoglobin Sodium Potassium Chloride Carbon Dioxide BUN Creatinine Glucose POC Glucose 133 H 128 H 129 H Lactic Acid Calcium Phosphorus Magnesium AST ALT Lactate Dehydrogenase Total Bilirubin Direct Bilirubin CK-MB (CK-2) C-Reactive Protein NT-Pro-B Natriuret Pep Total Protein Albumin Arterial Blood Glucose Urine WBC (Auto) Urine Creatinine 12/19/19 12/19/19 12/19/19 04:45 04:45 05:35 WBC RBC Hgb Hct MCHC RDW MCV MCH Lymph % (Auto) [place] % (Auto) [place] # Eos # Lymph # (Auto) [place] # (Auto) Eos # (Auto) Seg Neutrophils % Seg Neuts % (Manual) Baso # (Auto) Lymphocytes % (Manual) Monocytes % (Manual) Eosinophils % (Manual) Basophils % (Manual) Seg Neutrophils # Seg Neutrophils # Man Lymphocytes # (Manual) Monocytes # (Manual) Eosinophils # (Manual) Nucleated RBC % Basophils # (Manual) PT INR APTT Heparin Anti-Xa Level 0.17 L ABG pH POC ABG pO2 ABG pO2 ABG HCO3 ABG O2 Saturation ABG Base Excess POC ABG pCO2 ABG Hemoglobin ABG Oxyhemoglobin ABG Sodium ABG Chloride ABG Glucose Oxyhemoglobin Sodium Potassium Chloride Carbon Dioxide BUN Creatinine Glucose POC Glucose 120 H Lactic Acid Calcium Phosphorus Magnesium AST ALT Lactate Dehydrogenase 228 H Total Bilirubin Direct Bilirubin CK-MB (CK-2) C-Reactive Protein NT-Pro-B Natriuret Pep Total Protein Albumin Arterial Blood Glucose Urine WBC (Auto) Urine Creatinine 12/19/19 12/19/19 12/19/19 09:20 11:32 11:32 WBC 14.6 H RBC 3.08 L Hgb 9.0 L Hct 26.8 L MCHC RDW 15.9 H MCV MCH Lymph % (Auto) [place] % (Auto) [place] # Eos # Lymph # (Auto) [place] # (Auto) Eos # (Auto) Seg Neutrophils % Seg Neuts % (Manual) 82.0 H Baso # (Auto) Lymphocytes % (Manual) 10.0 L Monocytes % (Manual) Eosinophils % (Manual) Basophils % (Manual) Seg Neutrophils # Seg Neutrophils # Man 12.0 H Lymphocytes # (Manual) Monocytes # (Manual) 0.9 H Eosinophils # (Manual) Nucleated RBC % 1.0 H Basophils # (Manual) PT INR APTT Heparin Anti-Xa Level ABG pH 7.451 H POC ABG pO2 ABG pO2 62.6 L ABG HCO3 33.2 H ABG O2 Saturation 93.8 L ABG Base Excess 8.3 H POC ABG pCO2 ABG Hemoglobin 8.3 L ABG Oxyhemoglobin ABG Sodium ABG Chloride ABG Glucose Oxyhemoglobin 91.9 L Sodium Potassium Chloride 95.0 L Carbon Dioxide 33 H BUN 22 H Creatinine 0.6 L Glucose 150 H POC Glucose Lactic Acid Calcium Phosphorus Magnesium AST ALT Lactate Dehydrogenase Total Bilirubin Direct Bilirubin CK-MB (CK-2) C-Reactive Protein NT-Pro-B Natriuret Pep Total Protein 6.2 L Albumin 2.4 L Arterial Blood Glucose Urine WBC (Auto) Urine Creatinine 12/19/19 12/19/19 12/20/19 11:56 18:17 00:09 WBC RBC Hgb Hct MCHC RDW MCV MCH Lymph % (Auto) [place] % (Auto) [place] # Eos # Lymph # (Auto) [place] # (Auto) Eos # (Auto) Seg Neutrophils % Seg Neuts % (Manual) Baso # (Auto) Lymphocytes % (Manual) Monocytes % (Manual) Eosinophils % (Manual) Basophils % (Manual) Seg Neutrophils # Seg Neutrophils # Man Lymphocytes # (Manual) Monocytes # (Manual) Eosinophils # (Manual) Nucleated RBC % Basophils # (Manual) PT INR APTT Heparin Anti-Xa Level ABG pH POC ABG pO2 ABG pO2 ABG HCO3 ABG O2 Saturation ABG Base Excess POC ABG pCO2 ABG Hemoglobin ABG Oxyhemoglobin ABG Sodium ABG Chloride ABG Glucose Oxyhemoglobin Sodium Potassium Chloride Carbon Dioxide BUN Creatinine Glucose POC Glucose 156 H 156 H 155 H Lactic Acid Calcium Phosphorus Magnesium AST ALT Lactate Dehydrogenase Total Bilirubin Direct Bilirubin CK-MB (CK-2) C-Reactive Protein NT-Pro-B Natriuret Pep Total Protein Albumin Arterial Blood Glucose Urine WBC (Auto) Urine Creatinine 12/20/19 12/20/19 12/20/19 05:26 06:02 18:17 WBC RBC Hgb Hct MCHC RDW MCV MCH Lymph % (Auto) [place] % (Auto) [place] # Eos # Lymph # (Auto) [place] # (Auto) Eos # (Auto) Seg Neutrophils % Seg Neuts % (Manual) Baso # (Auto) Lymphocytes % (Manual) Monocytes % (Manual) Eosinophils % (Manual) Basophils % (Manual) Seg Neutrophils # Seg Neutrophils # Man Lymphocytes # (Manual) Monocytes # (Manual) Eosinophils # (Manual) Nucleated RBC % Basophils # (Manual) PT INR APTT Heparin Anti-Xa Level 0.19 L ABG pH POC ABG pO2 ABG pO2 ABG HCO3 ABG O2 Saturation ABG Base Excess POC ABG pCO2 ABG Hemoglobin ABG Oxyhemoglobin ABG Sodium ABG Chloride ABG Glucose Oxyhemoglobin Sodium Potassium Chloride Carbon Dioxide BUN Creatinine Glucose POC Glucose 137 H 128 H Lactic Acid Calcium Phosphorus Magnesium AST ALT Lactate Dehydrogenase Total Bilirubin Direct Bilirubin CK-MB (CK-2) C-Reactive Protein NT-Pro-B Natriuret Pep Total Protein Albumin Arterial Blood Glucose Urine WBC (Auto) Urine Creatinine 12/20/19 12/21/19 12/21/19 23:34 05:31 05:31 WBC 12.7 H RBC 3.09 L Hgb 8.9 L Hct 27.4 L MCHC RDW 15.8 H MCV MCH Lymph % (Auto) 12.1 L [place] % (Auto) 7.8 H [place] # Eos # Lymph # (Auto) [place] # (Auto) 1.0 H Eos # (Auto) Seg Neutrophils % 77.1 H Seg Neuts % (Manual) Baso # (Auto) Lymphocytes % (Manual) Monocytes % (Manual) Eosinophils % (Manual) Basophils % (Manual) Seg Neutrophils # 9.8 H Seg Neutrophils # Man Lymphocytes # (Manual) Monocytes # (Manual) Eosinophils # (Manual) Nucleated RBC % Basophils # (Manual) PT INR APTT Heparin Anti-Xa Level ABG pH POC ABG pO2 ABG pO2 ABG HCO3 ABG O2 Saturation ABG Base Excess POC ABG pCO2 ABG Hemoglobin ABG Oxyhemoglobin ABG Sodium ABG Chloride ABG Glucose Oxyhemoglobin Sodium Potassium Chloride 96.9 L Carbon Dioxide 37 H BUN 27 H Creatinine 0.7 L Glucose 140 H POC Glucose 145 H Lactic Acid Calcium Phosphorus Magnesium AST ALT Lactate Dehydrogenase Total Bilirubin Direct Bilirubin CK-MB (CK-2) C-Reactive Protein NT-Pro-B Natriuret Pep Total Protein Albumin Arterial Blood Glucose Urine WBC (Auto) Urine Creatinine 12/21/19 12/21/19 12/21/19 05:38 10:13 11:51 WBC RBC Hgb Hct MCHC RDW MCV MCH Lymph % (Auto) [place] % (Auto) [place] # Eos # Lymph # (Auto) [place] # (Auto) Eos # (Auto) Seg Neutrophils % Seg Neuts % (Manual) Baso # (Auto) Lymphocytes % (Manual) Monocytes % (Manual) Eosinophils % (Manual) Basophils % (Manual) Seg Neutrophils # Seg Neutrophils # Man Lymphocytes # (Manual) Monocytes # (Manual) Eosinophils # (Manual) Nucleated RBC % Basophils # (Manual) PT INR APTT 23.9 L Heparin Anti-Xa Level < 0.10 L ABG pH POC ABG pO2 ABG pO2 ABG HCO3 ABG O2 Saturation ABG Base Excess POC ABG pCO2 ABG Hemoglobin ABG Oxyhemoglobin ABG Sodium ABG Chloride ABG Glucose Oxyhemoglobin Sodium Potassium Chloride Carbon Dioxide BUN Creatinine Glucose POC Glucose 151 H 145 H Lactic Acid Calcium Phosphorus Magnesium AST ALT Lactate Dehydrogenase Total Bilirubin Direct Bilirubin CK-MB (CK-2) C-Reactive Protein NT-Pro-B Natriuret Pep Total Protein Albumin Arterial Blood Glucose Urine WBC (Auto) Urine Creatinine 12/21/19 12/22/19 12/22/19 17:16 00:01 01:33 WBC RBC Hgb Hct MCHC RDW MCV MCH Lymph % (Auto) [place] % (Auto) [place] # Eos # Lymph # (Auto) [place] # (Auto) Eos # (Auto) Seg Neutrophils % Seg Neuts % (Manual) Baso # (Auto) Lymphocytes % (Manual) Monocytes % (Manual) Eosinophils % (Manual) Basophils % (Manual) Seg Neutrophils # Seg Neutrophils # Man Lymphocytes # (Manual) Monocytes # (Manual) Eosinophils # (Manual) Nucleated RBC % Basophils # (Manual) PT INR APTT Heparin Anti-Xa Level 0.10 L ABG pH POC ABG pO2 ABG pO2 ABG HCO3 ABG O2 Saturation ABG Base Excess POC ABG pCO2 ABG Hemoglobin ABG Oxyhemoglobin ABG Sodium ABG Chloride ABG Glucose Oxyhemoglobin Sodium Potassium Chloride Carbon Dioxide BUN Creatinine Glucose POC Glucose 167 H 179 H Lactic Acid Calcium Phosphorus Magnesium AST ALT Lactate Dehydrogenase Total Bilirubin Direct Bilirubin CK-MB (CK-2) C-Reactive Protein NT-Pro-B Natriuret Pep Total Protein Albumin Arterial Blood Glucose Urine WBC (Auto) Urine Creatinine 12/22/19 12/22/19 12/22/19 03:22 05:10 05:10 WBC 13.8 H RBC 3.20 L Hgb 8.9 L Hct 28.1 L MCHC RDW 15.9 H MCV MCH Lymph % (Auto) [place] % (Auto) [place] # Eos # Lymph # (Auto) [place] # (Auto) Eos # (Auto) Seg Neutrophils % Seg Neuts % (Manual) Baso # (Auto) Lymphocytes % (Manual) Monocytes % (Manual) Eosinophils % (Manual) Basophils % (Manual) Seg Neutrophils # Seg Neutrophils # Man Lymphocytes # (Manual) Monocytes # (Manual) Eosinophils # (Manual) Nucleated RBC % Basophils # (Manual) PT INR APTT Heparin Anti-Xa Level ABG pH POC ABG pO2 52.3 L ABG pO2 ABG HCO3 ABG O2 Saturation ABG Base Excess POC ABG pCO2 52.9 H ABG Hemoglobin 10.7 L ABG Oxyhemoglobin 84 L ABG Sodium ABG Chloride ABG Glucose Oxyhemoglobin Sodium Potassium Chloride 96.6 L Carbon Dioxide BUN 25 H Creatinine 0.7 L Glucose 129 H POC Glucose Lactic Acid Calcium Phosphorus Magnesium AST ALT Lactate Dehydrogenase Total Bilirubin Direct Bilirubin CK-MB (CK-2) C-Reactive Protein NT-Pro-B Natriuret Pep Total Protein Albumin Arterial Blood Glucose Urine WBC (Auto) Urine Creatinine 12/22/19 12/22/19 12/22/19 05:18 12:32 12:43 WBC RBC Hgb Hct MCHC RDW MCV MCH Lymph % (Auto) [place] % (Auto) [place] # Eos # Lymph # (Auto) [place] # (Auto) Eos # (Auto) Seg Neutrophils % Seg Neuts % (Manual) Baso # (Auto) Lymphocytes % (Manual) Monocytes % (Manual) Eosinophils % (Manual) Basophils % (Manual) Seg Neutrophils # Seg Neutrophils # Man Lymphocytes # (Manual) Monocytes # (Manual) Eosinophils # (Manual) Nucleated RBC % Basophils # (Manual) PT INR APTT Heparin Anti-Xa Level 0.18 L ABG pH POC ABG pO2 ABG pO2 ABG HCO3 ABG O2 Saturation ABG Base Excess POC ABG pCO2 ABG Hemoglobin ABG Oxyhemoglobin ABG Sodium ABG Chloride ABG Glucose Oxyhemoglobin Sodium Potassium Chloride Carbon Dioxide BUN Creatinine Glucose POC Glucose 131 H 208 H Lactic Acid Calcium Phosphorus Magnesium AST ALT Lactate Dehydrogenase Total Bilirubin Direct Bilirubin CK-MB (CK-2) C-Reactive Protein NT-Pro-B Natriuret Pep Total Protein Albumin Arterial Blood Glucose Urine WBC (Auto) Urine Creatinine 12/22/19 12/22/19 12/23/19 17:44 23:20 03:51 WBC 15.2 H RBC 3.43 L Hgb 9.6 L Hct 30.3 L MCHC RDW 15.9 H MCV MCH Lymph % (Auto) [place] % (Auto) [place] # Eos # Lymph # (Auto) [place] # (Auto) Eos # (Auto) Seg Neutrophils % Seg Neuts % (Manual) Baso # (Auto) Lymphocytes % (Manual) Monocytes % (Manual) Eosinophils % (Manual) Basophils % (Manual) Seg Neutrophils # Seg Neutrophils # Man Lymphocytes # (Manual) Monocytes # (Manual) Eosinophils # (Manual) Nucleated RBC % Basophils # (Manual) PT INR APTT Heparin Anti-Xa Level ABG pH POC ABG pO2 ABG pO2 ABG HCO3 ABG O2 Saturation ABG Base Excess POC ABG pCO2 ABG Hemoglobin ABG Oxyhemoglobin ABG Sodium ABG Chloride ABG Glucose Oxyhemoglobin Sodium Potassium Chloride Carbon Dioxide BUN Creatinine Glucose POC Glucose 209 H 119 H Lactic Acid Calcium Phosphorus Magnesium AST ALT Lactate Dehydrogenase Total Bilirubin Direct Bilirubin CK-MB (CK-2) C-Reactive Protein NT-Pro-B Natriuret Pep Total Protein Albumin Arterial Blood Glucose Urine WBC (Auto) Urine Creatinine 12/23/19 12/23/19 12/23/19 03:51 05:31 12:09 WBC RBC Hgb Hct MCHC RDW MCV MCH Lymph % (Auto) [place] % (Auto) [place] # Eos # Lymph # (Auto) [place] # (Auto) Eos # (Auto) Seg Neutrophils % Seg Neuts % (Manual) Baso # (Auto) Lymphocytes % (Manual) Monocytes % (Manual) Eosinophils % (Manual) Basophils % (Manual) Seg Neutrophils # Seg Neutrophils # Man Lymphocytes # (Manual) Monocytes # (Manual) Eosinophils # (Manual) Nucleated RBC % Basophils # (Manual) PT INR APTT Heparin Anti-Xa Level ABG pH POC ABG pO2 ABG pO2 ABG HCO3 ABG O2 Saturation ABG Base Excess POC ABG pCO2 ABG Hemoglobin ABG Oxyhemoglobin ABG Sodium ABG Chloride ABG Glucose Oxyhemoglobin Sodium Potassium Chloride 97.2 L Carbon Dioxide 31 H BUN 23 H Creatinine 0.6 L Glucose 153 H POC Glucose 149 H 144 H Lactic Acid Calcium Phosphorus Magnesium AST ALT Lactate Dehydrogenase Total Bilirubin Direct Bilirubin CK-MB (CK-2) C-Reactive Protein NT-Pro-B Natriuret Pep Total Protein Albumin Arterial Blood Glucose Urine WBC (Auto) Urine Creatinine 12/23/19 12/23/19 12/23/19 15:30 17:49 23:31 WBC RBC Hgb Hct MCHC RDW MCV MCH Lymph % (Auto) [place] % (Auto) [place] # Eos # Lymph # (Auto) [place] # (Auto) Eos # (Auto) Seg Neutrophils % Seg Neuts % (Manual) Baso # (Auto) Lymphocytes % (Manual) Monocytes % (Manual) Eosinophils % (Manual) Basophils % (Manual) Seg Neutrophils # Seg Neutrophils # Man Lymphocytes # (Manual) Monocytes # (Manual) Eosinophils # (Manual) Nucleated RBC % Basophils # (Manual) PT INR APTT Heparin Anti-Xa Level 0.21 L ABG pH POC ABG pO2 ABG pO2 ABG HCO3 ABG O2 Saturation ABG Base Excess POC ABG pCO2 ABG Hemoglobin ABG Oxyhemoglobin ABG Sodium ABG Chloride ABG Glucose Oxyhemoglobin Sodium Potassium Chloride Carbon Dioxide BUN Creatinine Glucose POC Glucose 192 H 151 H Lactic Acid Calcium Phosphorus Magnesium AST ALT Lactate Dehydrogenase Total Bilirubin Direct Bilirubin CK-MB (CK-2) C-Reactive Protein NT-Pro-B Natriuret Pep Total Protein Albumin Arterial Blood Glucose Urine WBC (Auto) Urine Creatinine 12/24/19 12/24/19 12/24/19 05:34 12:13 16:50 WBC RBC Hgb Hct MCHC RDW MCV MCH Lymph % (Auto) [place] % (Auto) [place] # Eos # Lymph # (Auto) [place] # (Auto) Eos # (Auto) Seg Neutrophils % Seg Neuts % (Manual) Baso # (Auto) Lymphocytes % (Manual) Monocytes % (Manual) Eosinophils % (Manual) Basophils % (Manual) Seg Neutrophils # Seg Neutrophils # Man Lymphocytes # (Manual) Monocytes # (Manual) Eosinophils # (Manual) Nucleated RBC % Basophils # (Manual) PT INR APTT Heparin Anti-Xa Level 0.16 L ABG pH POC ABG pO2 ABG pO2 ABG HCO3 ABG O2 Saturation ABG Base Excess POC ABG pCO2 ABG Hemoglobin ABG Oxyhemoglobin ABG Sodium ABG Chloride ABG Glucose Oxyhemoglobin Sodium Potassium Chloride Carbon Dioxide BUN Creatinine Glucose POC Glucose 145 H 124 H Lactic Acid Calcium Phosphorus Magnesium AST ALT Lactate Dehydrogenase Total Bilirubin Direct Bilirubin CK-MB (CK-2) C-Reactive Protein NT-Pro-B Natriuret Pep Total Protein Albumin Arterial Blood Glucose Urine WBC (Auto) Urine Creatinine 12/24/19 12/25/19 12/25/19 17:53 00:14 04:18 WBC 12.9 H RBC 3.30 L Hgb 9.1 L Hct 28.8 L MCHC RDW 16.4 H MCV MCH Lymph % (Auto) [place] % (Auto) 7.8 H [place] # Eos # Lymph # (Auto) [place] # (Auto) 1.0 H Eos # (Auto) Seg Neutrophils % 75.5 H Seg Neuts % (Manual) Baso # (Auto) Lymphocytes % (Manual) Monocytes % (Manual) Eosinophils % (Manual) Basophils % (Manual) Seg Neutrophils # 9.7 H Seg Neutrophils # Man Lymphocytes # (Manual) Monocytes # (Manual) Eosinophils # (Manual) Nucleated RBC % Basophils # (Manual) PT INR APTT Heparin Anti-Xa Level ABG pH POC ABG pO2 ABG pO2 ABG HCO3 ABG O2 Saturation ABG Base Excess POC ABG pCO2 ABG Hemoglobin ABG Oxyhemoglobin ABG Sodium ABG Chloride ABG Glucose Oxyhemoglobin Sodium Potassium Chloride Carbon Dioxide BUN Creatinine Glucose POC Glucose 164 H 148 H Lactic Acid Calcium Phosphorus Magnesium AST ALT Lactate Dehydrogenase Total Bilirubin Direct Bilirubin CK-MB (CK-2) C-Reactive Protein NT-Pro-B Natriuret Pep Total Protein Albumin Arterial Blood Glucose Urine WBC (Auto) Urine Creatinine 12/25/19 12/25/19 12/25/19 04:18 05:38 11:44 WBC RBC Hgb Hct MCHC RDW MCV MCH Lymph % (Auto) [place] % (Auto) [place] # Eos # Lymph # (Auto) [place] # (Auto) Eos # (Auto) Seg Neutrophils % Seg Neuts % (Manual) Baso # (Auto) Lymphocytes % (Manual) Monocytes % (Manual) Eosinophils % (Manual) Basophils % (Manual) Seg Neutrophils # Seg Neutrophils # Man Lymphocytes # (Manual) Monocytes # (Manual) Eosinophils # (Manual) Nucleated RBC % Basophils # (Manual) PT INR APTT Heparin Anti-Xa Level ABG pH POC ABG pO2 ABG pO2 ABG HCO3 ABG O2 Saturation ABG Base Excess POC ABG pCO2 ABG Hemoglobin ABG Oxyhemoglobin ABG Sodium ABG Chloride ABG Glucose Oxyhemoglobin Sodium Potassium Chloride Carbon Dioxide 33 H BUN 27 H Creatinine 0.6 L Glucose 132 H POC Glucose 152 H 166 H Lactic Acid Calcium Phosphorus Magnesium AST ALT Lactate Dehydrogenase Total Bilirubin Direct Bilirubin CK-MB (CK-2) C-Reactive Protein NT-Pro-B Natriuret Pep Total Protein Albumin Arterial Blood Glucose Urine WBC (Auto) Urine Creatinine 12/25/19 12/26/19 12/26/19 18:29 00:17 00:18 WBC RBC Hgb Hct MCHC RDW MCV MCH Lymph % (Auto) [place] % (Auto) [place] # Eos # Lymph # (Auto) [place] # (Auto) Eos # (Auto) Seg Neutrophils % Seg Neuts % (Manual) Baso # (Auto) Lymphocytes % (Manual) Monocytes % (Manual) Eosinophils % (Manual) Basophils % (Manual) Seg Neutrophils # Seg Neutrophils # Man Lymphocytes # (Manual) Monocytes # (Manual) Eosinophils # (Manual) Nucleated RBC % Basophils # (Manual) PT INR APTT Heparin Anti-Xa Level ABG pH POC ABG pO2 ABG pO2 ABG HCO3 ABG O2 Saturation ABG Base Excess POC ABG pCO2 ABG Hemoglobin ABG Oxyhemoglobin ABG Sodium ABG Chloride ABG Glucose Oxyhemoglobin Sodium Potassium Chloride 97.8 L Carbon Dioxide BUN 25 H Creatinine 0.6 L Glucose 140 H POC Glucose 194 H 151 H Lactic Acid Calcium Phosphorus Magnesium AST ALT Lactate Dehydrogenase Total Bilirubin Direct Bilirubin CK-MB (CK-2) C-Reactive Protein NT-Pro-B Natriuret Pep Total Protein Albumin Arterial Blood Glucose Urine WBC (Auto) Urine Creatinine 12/26/19 12/26/19 12/26/19 05:36 11:41 17:50 WBC RBC Hgb Hct MCHC RDW MCV MCH Lymph % (Auto) [place] % (Auto) [place] # Eos # Lymph # (Auto) [place] # (Auto) Eos # (Auto) Seg Neutrophils % Seg Neuts % (Manual) Baso # (Auto) Lymphocytes % (Manual) Monocytes % (Manual) Eosinophils % (Manual) Basophils % (Manual) Seg Neutrophils # Seg Neutrophils # Man Lymphocytes # (Manual) Monocytes # (Manual) Eosinophils # (Manual) Nucleated RBC % Basophils # (Manual) PT INR APTT Heparin Anti-Xa Level ABG pH POC ABG pO2 ABG pO2 ABG HCO3 ABG O2 Saturation ABG Base Excess POC ABG pCO2 ABG Hemoglobin ABG Oxyhemoglobin ABG Sodium ABG Chloride ABG Glucose Oxyhemoglobin Sodium Potassium Chloride Carbon Dioxide BUN Creatinine Glucose POC Glucose 156 H 148 H 139 H Lactic Acid Calcium Phosphorus Magnesium AST ALT Lactate Dehydrogenase Total Bilirubin Direct Bilirubin CK-MB (CK-2) C-Reactive Protein NT-Pro-B Natriuret Pep Total Protein Albumin Arterial Blood Glucose Urine WBC (Auto) Urine Creatinine 12/26/19 12/27/19 12/27/19 23:19 05:34 12:02 WBC RBC Hgb Hct MCHC RDW MCV MCH Lymph % (Auto) [place] % (Auto) [place] # Eos # Lymph # (Auto) [place] # (Auto) Eos # (Auto) Seg Neutrophils % Seg Neuts % (Manual) Baso # (Auto) Lymphocytes % (Manual) Monocytes % (Manual) Eosinophils % (Manual) Basophils % (Manual) Seg Neutrophils # Seg Neutrophils # Man Lymphocytes # (Manual) Monocytes # (Manual) Eosinophils # (Manual) Nucleated RBC % Basophils # (Manual) PT INR APTT Heparin Anti-Xa Level ABG pH POC ABG pO2 ABG pO2 ABG HCO3 ABG O2 Saturation ABG Base Excess POC ABG pCO2 ABG Hemoglobin ABG Oxyhemoglobin ABG Sodium ABG Chloride ABG Glucose Oxyhemoglobin Sodium Potassium Chloride Carbon Dioxide BUN Creatinine Glucose POC Glucose 161 H 145 H 157 H Lactic Acid Calcium Phosphorus Magnesium AST ALT Lactate Dehydrogenase Total Bilirubin Direct Bilirubin CK-MB (CK-2) C-Reactive Protein NT-Pro-B Natriuret Pep Total Protein Albumin Arterial Blood Glucose Urine WBC (Auto) Urine Creatinine 12/27/19 12/27/19 12/27/19 17:35 20:11 23:00 WBC RBC Hgb Hct MCHC RDW MCV MCH Lymph % (Auto) [place] % (Auto) [place] # Eos # Lymph # (Auto) [place] # (Auto) Eos # (Auto) Seg Neutrophils % Seg Neuts % (Manual) Baso # (Auto) Lymphocytes % (Manual) Monocytes % (Manual) Eosinophils % (Manual) Basophils % (Manual) Seg Neutrophils # Seg Neutrophils # Man Lymphocytes # (Manual) Monocytes # (Manual) Eosinophils # (Manual) Nucleated RBC % Basophils # (Manual) PT INR APTT Heparin Anti-Xa Level 0.19 L ABG pH POC ABG pO2 ABG pO2 ABG HCO3 ABG O2 Saturation ABG Base Excess POC ABG pCO2 ABG Hemoglobin ABG Oxyhemoglobin ABG Sodium ABG Chloride ABG Glucose Oxyhemoglobin Sodium Potassium Chloride Carbon Dioxide BUN Creatinine Glucose POC Glucose 158 H 155 H Lactic Acid Calcium Phosphorus Magnesium AST ALT Lactate Dehydrogenase Total Bilirubin Direct Bilirubin CK-MB (CK-2) C-Reactive Protein NT-Pro-B Natriuret Pep Total Protein Albumin Arterial Blood Glucose Urine WBC (Auto) Urine Creatinine 12/27/19 12/28/19 12/28/19 23:45 02:41 02:41 WBC 13.0 H RBC 3.48 L Hgb 9.5 L Hct 30.6 L MCHC 31 L RDW 16.6 H MCV MCH 27 L Lymph % (Auto) 13.0 L [place] % (Auto) 8.0 H [place] # Eos # Lymph # (Auto) [place] # (Auto) 1.0 H Eos # (Auto) Seg Neutrophils % 76.3 H Seg Neuts % (Manual) Baso # (Auto) Lymphocytes % (Manual) Monocytes % (Manual) Eosinophils % (Manual) Basophils % (Manual) Seg Neutrophils # 9.9 H Seg Neutrophils # Man Lymphocytes # (Manual) Monocytes # (Manual) Eosinophils # (Manual) Nucleated RBC % Basophils # (Manual) PT INR APTT Heparin Anti-Xa Level ABG pH POC ABG pO2 ABG pO2 ABG HCO3 ABG O2 Saturation ABG Base Excess POC ABG pCO2 ABG Hemoglobin ABG Oxyhemoglobin ABG Sodium ABG Chloride ABG Glucose Oxyhemoglobin Sodium Potassium Chloride Carbon Dioxide BUN 22 H Creatinine 0.6 L Glucose 101 H POC Glucose 130 H Lactic Acid Calcium Phosphorus Magnesium AST ALT Lactate Dehydrogenase Total Bilirubin Direct Bilirubin CK-MB (CK-2) C-Reactive Protein NT-Pro-B Natriuret Pep Total Protein Albumin Arterial Blood Glucose Urine WBC (Auto) Urine Creatinine 12/28/19 12/28/19 12/28/19 06:00 12:34 18:13 WBC RBC Hgb Hct MCHC RDW MCV MCH Lymph % (Auto) [place] % (Auto) [place] # Eos # Lymph # (Auto) [place] # (Auto) Eos # (Auto) Seg Neutrophils % Seg Neuts % (Manual) Baso # (Auto) Lymphocytes % (Manual) Monocytes % (Manual) Eosinophils % (Manual) Basophils % (Manual) Seg Neutrophils # Seg Neutrophils # Man Lymphocytes # (Manual) Monocytes # (Manual) Eosinophils # (Manual) Nucleated RBC % Basophils # (Manual) PT INR APTT Heparin Anti-Xa Level ABG pH POC ABG pO2 ABG pO2 ABG HCO3 ABG O2 Saturation ABG Base Excess POC ABG pCO2 ABG Hemoglobin ABG Oxyhemoglobin ABG Sodium ABG Chloride ABG Glucose Oxyhemoglobin Sodium Potassium Chloride Carbon Dioxide BUN Creatinine Glucose POC Glucose 150 H 161 H 128 H Lactic Acid Calcium Phosphorus Magnesium AST ALT Lactate Dehydrogenase Total Bilirubin Direct Bilirubin CK-MB (CK-2) C-Reactive Protein NT-Pro-B Natriuret Pep Total Protein Albumin Arterial Blood Glucose Urine WBC (Auto) Urine Creatinine 12/28/19 12/29/19 12/29/19 23:36 05:21 11:40 WBC RBC Hgb Hct MCHC RDW MCV MCH Lymph % (Auto) [place] % (Auto) [place] # Eos # Lymph # (Auto) [place] # (Auto) Eos # (Auto) Seg Neutrophils % Seg Neuts % (Manual) Baso # (Auto) Lymphocytes % (Manual) Monocytes % (Manual) Eosinophils % (Manual) Basophils % (Manual) Seg Neutrophils # Seg Neutrophils # Man Lymphocytes # (Manual) Monocytes # (Manual) Eosinophils # (Manual) Nucleated RBC % Basophils # (Manual) PT INR APTT Heparin Anti-Xa Level ABG pH POC ABG pO2 ABG pO2 ABG HCO3 ABG O2 Saturation ABG Base Excess POC ABG pCO2 ABG Hemoglobin ABG Oxyhemoglobin ABG Sodium ABG Chloride ABG Glucose Oxyhemoglobin Sodium Potassium Chloride Carbon Dioxide BUN Creatinine Glucose POC Glucose 137 H 136 H 166 H Lactic Acid Calcium Phosphorus Magnesium AST ALT Lactate Dehydrogenase Total Bilirubin Direct Bilirubin CK-MB (CK-2) C-Reactive Protein NT-Pro-B Natriuret Pep Total Protein Albumin Arterial Blood Glucose Urine WBC (Auto) Urine Creatinine 12/29/19 12/29/19 12/29/19 17:23 19:21 23:38 WBC RBC Hgb Hct MCHC RDW MCV MCH Lymph % (Auto) [place] % (Auto) [place] # Eos # Lymph # (Auto) [place] # (Auto) Eos # (Auto) Seg Neutrophils % Seg Neuts % (Manual) Baso # (Auto) Lymphocytes % (Manual) Monocytes % (Manual) Eosinophils % (Manual) Basophils % (Manual) Seg Neutrophils # Seg Neutrophils # Man Lymphocytes # (Manual) Monocytes # (Manual) Eosinophils # (Manual) Nucleated RBC % Basophils # (Manual) PT INR APTT Heparin Anti-Xa Level 0.20 L ABG pH POC ABG pO2 ABG pO2 ABG HCO3 ABG O2 Saturation ABG Base Excess POC ABG pCO2 ABG Hemoglobin ABG Oxyhemoglobin ABG Sodium ABG Chloride ABG Glucose Oxyhemoglobin Sodium Potassium Chloride Carbon Dioxide BUN Creatinine Glucose POC Glucose 144 H 141 H Lactic Acid Calcium Phosphorus Magnesium AST ALT Lactate Dehydrogenase Total Bilirubin Direct Bilirubin CK-MB (CK-2) C-Reactive Protein NT-Pro-B Natriuret Pep Total Protein Albumin Arterial Blood Glucose Urine WBC (Auto) Urine Creatinine 12/30/19 12/30/19 12/30/19 03:58 03:58 04:59 WBC RBC 3.54 L Hgb 9.8 L Hct 30.7 L MCHC RDW 16.8 H MCV MCH Lymph % (Auto) [place] % (Auto) [place] # Eos # Lymph # (Auto) [place] # (Auto) Eos # (Auto) Seg Neutrophils % Seg Neuts % (Manual) Baso # (Auto) Lymphocytes % (Manual) Monocytes % (Manual) Eosinophils % (Manual) Basophils % (Manual) Seg Neutrophils # Seg Neutrophils # Man Lymphocytes # (Manual) Monocytes # (Manual) Eosinophils # (Manual) Nucleated RBC % Basophils # (Manual) PT INR APTT Heparin Anti-Xa Level ABG pH POC ABG pO2 ABG pO2 ABG HCO3 29.8 H ABG O2 Saturation ABG Base Excess 4.8 H POC ABG pCO2 ABG Hemoglobin 11.2 L ABG Oxyhemoglobin ABG Sodium ABG Chloride ABG Glucose Oxyhemoglobin 93.8 L Sodium Potassium Chloride 97.8 L Carbon Dioxide BUN 26 H Creatinine Glucose 168 H POC Glucose Lactic Acid Calcium Phosphorus Magnesium AST ALT Lactate Dehydrogenase Total Bilirubin Direct Bilirubin CK-MB (CK-2) C-Reactive Protein NT-Pro-B Natriuret Pep Total Protein Albumin Arterial Blood Glucose Urine WBC (Auto) Urine Creatinine 12/30/19 12/30/19 12/30/19 05:45 11:34 17:28 WBC RBC Hgb Hct MCHC RDW MCV MCH Lymph % (Auto) [place] % (Auto) [place] # Eos # Lymph # (Auto) [place] # (Auto) Eos # (Auto) Seg Neutrophils % Seg Neuts % (Manual) Baso # (Auto) Lymphocytes % (Manual) Monocytes % (Manual) Eosinophils % (Manual) Basophils % (Manual) Seg Neutrophils # Seg Neutrophils # Man Lymphocytes # (Manual) Monocytes # (Manual) Eosinophils # (Manual) Nucleated RBC % Basophils # (Manual) PT INR APTT Heparin Anti-Xa Level ABG pH POC ABG pO2 ABG pO2 ABG HCO3 ABG O2 Saturation ABG Base Excess POC ABG pCO2 ABG Hemoglobin ABG Oxyhemoglobin ABG Sodium ABG Chloride ABG Glucose Oxyhemoglobin Sodium Potassium Chloride Carbon Dioxide BUN Creatinine Glucose POC Glucose 163 H 180 H 150 H Lactic Acid Calcium Phosphorus Magnesium AST ALT Lactate Dehydrogenase Total Bilirubin Direct Bilirubin CK-MB (CK-2) C-Reactive Protein NT-Pro-B Natriuret Pep Total Protein Albumin Arterial Blood Glucose Urine WBC (Auto) Urine Creatinine 12/30/19 12/31/19 12/31/19 23:43 04:55 05:07 WBC RBC Hgb Hct MCHC RDW MCV MCH Lymph % (Auto) [place] % (Auto) [place] # Eos # Lymph # (Auto) [place] # (Auto) Eos # (Auto) Seg Neutrophils % Seg Neuts % (Manual) Baso # (Auto) Lymphocytes % (Manual) Monocytes % (Manual) Eosinophils % (Manual) Basophils % (Manual) Seg Neutrophils # Seg Neutrophils # Man Lymphocytes # (Manual) Monocytes # (Manual) Eosinophils # (Manual) Nucleated RBC % Basophils # (Manual) PT INR APTT Heparin Anti-Xa Level ABG pH POC ABG pO2 ABG pO2 ABG HCO3 ABG O2 Saturation ABG Base Excess POC ABG pCO2 ABG Hemoglobin ABG Oxyhemoglobin ABG Sodium ABG Chloride ABG Glucose Oxyhemoglobin Sodium Potassium 5.6 H D Chloride Carbon Dioxide BUN 33 H Creatinine Glucose 131 H POC Glucose 142 H 134 H Lactic Acid Calcium Phosphorus Magnesium AST ALT Lactate Dehydrogenase Total Bilirubin Direct Bilirubin CK-MB (CK-2) C-Reactive Protein NT-Pro-B Natriuret Pep Total Protein Albumin Arterial Blood Glucose Urine WBC (Auto) Urine Creatinine 12/31/19 12/31/19 12/31/19 11:30 17:19 17:36 WBC RBC Hgb Hct MCHC RDW MCV MCH Lymph % (Auto) [place] % (Auto) [place] # Eos # Lymph # (Auto) [place] # (Auto) Eos # (Auto) Seg Neutrophils % Seg Neuts % (Manual) Baso # (Auto) Lymphocytes % (Manual) Monocytes % (Manual) Eosinophils % (Manual) Basophils % (Manual) Seg Neutrophils # Seg Neutrophils # Man Lymphocytes # (Manual) Monocytes # (Manual) Eosinophils # (Manual) Nucleated RBC % Basophils # (Manual) PT INR APTT Heparin Anti-Xa Level ABG pH POC ABG pO2 ABG pO2 ABG HCO3 ABG O2 Saturation ABG Base Excess POC ABG pCO2 ABG Hemoglobin ABG Oxyhemoglobin ABG Sodium ABG Chloride ABG Glucose Oxyhemoglobin Sodium Potassium Chloride Carbon Dioxide BUN 35 H Creatinine Glucose 156 H POC Glucose 158 H 181 H Lactic Acid Calcium Phosphorus Magnesium AST ALT Lactate Dehydrogenase Total Bilirubin Direct Bilirubin CK-MB (CK-2) C-Reactive Protein NT-Pro-B Natriuret Pep Total Protein Albumin Arterial Blood Glucose Urine WBC (Auto) Urine Creatinine 12/31/19 12/31/19 12/31/19 18:16 19:41 21:53 WBC RBC Hgb Hct MCHC RDW MCV MCH Lymph % (Auto) [place] % (Auto) [place] # Eos # Lymph # (Auto) [place] # (Auto) Eos # (Auto) Seg Neutrophils % Seg Neuts % (Manual) Baso # (Auto) Lymphocytes % (Manual) Monocytes % (Manual) Eosinophils % (Manual) Basophils % (Manual) Seg Neutrophils # Seg Neutrophils # Man Lymphocytes # (Manual) Monocytes # (Manual) Eosinophils # (Manual) Nucleated RBC % Basophils # (Manual) PT INR APTT Heparin Anti-Xa Level 0.20 L ABG pH POC ABG pO2 ABG pO2 ABG HCO3 ABG O2 Saturation ABG Base Excess POC ABG pCO2 ABG Hemoglobin ABG Oxyhemoglobin ABG Sodium ABG Chloride ABG Glucose Oxyhemoglobin Sodium Potassium Chloride Carbon Dioxide BUN 34 H Creatinine Glucose 169 H POC Glucose 141 H Lactic Acid Calcium Phosphorus Magnesium AST ALT Lactate Dehydrogenase Total Bilirubin Direct Bilirubin CK-MB (CK-2) C-Reactive Protein NT-Pro-B Natriuret Pep Total Protein Albumin Arterial Blood Glucose Urine WBC (Auto) Urine Creatinine 12/31/19 01/01/20 01/01/20 23:51 05:17 10:40 WBC RBC Hgb Hct MCHC RDW MCV MCH Lymph % (Auto) [place] % (Auto) [place] # Eos # Lymph # (Auto) [place] # (Auto) Eos # (Auto) Seg Neutrophils % Seg Neuts % (Manual) Baso # (Auto) Lymphocytes % (Manual) Monocytes % (Manual) Eosinophils % (Manual) Basophils % (Manual) Seg Neutrophils # Seg Neutrophils # Man Lymphocytes # (Manual) Monocytes # (Manual) Eosinophils # (Manual) Nucleated RBC % Basophils # (Manual) PT INR APTT Heparin Anti-Xa Level ABG pH POC ABG pO2 ABG pO2 ABG HCO3 ABG O2 Saturation ABG Base Excess POC ABG pCO2 ABG Hemoglobin ABG Oxyhemoglobin ABG Sodium ABG Chloride ABG Glucose Oxyhemoglobin Sodium Potassium Chloride Carbon Dioxide BUN 31 H Creatinine 0.7 L Glucose 137 H POC Glucose 131 H 155 H Lactic Acid Calcium Phosphorus Magnesium AST 73 H ALT 97 H Lactate Dehydrogenase Total Bilirubin Direct Bilirubin CK-MB (CK-2) C-Reactive Protein NT-Pro-B Natriuret Pep 3866 H Total Protein Albumin 2.8 L Arterial Blood Glucose Urine WBC (Auto) Urine Creatinine 01/01/20 01/01/20 01/01/20 12:26 15:33 17:53 WBC 14.3 H RBC 3.35 L Hgb 9.1 L Hct 28.8 L MCHC RDW 17.0 H MCV MCH 27 L Lymph % (Auto) 7.0 L [place] % (Auto) 7.6 H [place] # Eos # Lymph # (Auto) 1.0 L [place] # (Auto) 1.1 H Eos # (Auto) Seg Neutrophils % 83.3 H Seg Neuts % (Manual) Baso # (Auto) Lymphocytes % (Manual) Monocytes % (Manual) Eosinophils % (Manual) Basophils % (Manual) Seg Neutrophils # 12.0 H Seg Neutrophils # Man Lymphocytes # (Manual) Monocytes # (Manual) Eosinophils # (Manual) Nucleated RBC % Basophils # (Manual) PT INR APTT Heparin Anti-Xa Level ABG pH POC ABG pO2 ABG pO2 ABG HCO3 ABG O2 Saturation ABG Base Excess POC ABG pCO2 ABG Hemoglobin ABG Oxyhemoglobin ABG Sodium ABG Chloride ABG Glucose Oxyhemoglobin Sodium Potassium Chloride Carbon Dioxide BUN Creatinine Glucose POC Glucose 128 H 128 H Lactic Acid Calcium Phosphorus Magnesium AST ALT Lactate Dehydrogenase Total Bilirubin Direct Bilirubin CK-MB (CK-2) C-Reactive Protein NT-Pro-B Natriuret Pep Total Protein Albumin Arterial Blood Glucose Urine WBC (Auto) Urine Creatinine 01/01/20 01/02/20 01/02/20 23:04 05:39 07:00 WBC RBC Hgb Hct MCHC RDW MCV MCH Lymph % (Auto) [place] % (Auto) [place] # Eos # Lymph # (Auto) [place] # (Auto) Eos # (Auto) Seg Neutrophils % Seg Neuts % (Manual) Baso # (Auto) Lymphocytes % (Manual) Monocytes % (Manual) Eosinophils % (Manual) Basophils % (Manual) Seg Neutrophils # Seg Neutrophils # Man Lymphocytes # (Manual) Monocytes # (Manual) Eosinophils # (Manual) Nucleated RBC % Basophils # (Manual) PT INR APTT Heparin Anti-Xa Level 0.13 L ABG pH POC ABG pO2 ABG pO2 ABG HCO3 ABG O2 Saturation ABG Base Excess POC ABG pCO2 ABG Hemoglobin ABG Oxyhemoglobin ABG Sodium ABG Chloride ABG Glucose Oxyhemoglobin Sodium Potassium Chloride Carbon Dioxide BUN Creatinine Glucose POC Glucose 120 H 169 H Lactic Acid Calcium Phosphorus Magnesium AST ALT Lactate Dehydrogenase Total Bilirubin Direct Bilirubin CK-MB (CK-2) C-Reactive Protein NT-Pro-B Natriuret Pep Total Protein Albumin Arterial Blood Glucose Urine WBC (Auto) Urine Creatinine 01/02/20 01/02/20 01/02/20 12:15 14:06 17:58 WBC RBC Hgb Hct MCHC RDW MCV MCH Lymph % (Auto) [place] % (Auto) [place] # Eos # Lymph # (Auto) [place] # (Auto) Eos # (Auto) Seg Neutrophils % Seg Neuts % (Manual) Baso # (Auto) Lymphocytes % (Manual) Monocytes % (Manual) Eosinophils % (Manual) Basophils % (Manual) Seg Neutrophils # Seg Neutrophils # Man Lymphocytes # (Manual) Monocytes # (Manual) Eosinophils # (Manual) Nucleated RBC % Basophils # (Manual) PT INR APTT Heparin Anti-Xa Level < 0.10 L ABG pH POC ABG pO2 ABG pO2 ABG HCO3 ABG O2 Saturation ABG Base Excess POC ABG pCO2 ABG Hemoglobin ABG Oxyhemoglobin ABG Sodium ABG Chloride ABG Glucose Oxyhemoglobin Sodium Potassium Chloride Carbon Dioxide BUN Creatinine Glucose POC Glucose 190 H 198 H Lactic Acid Calcium Phosphorus Magnesium AST ALT Lactate Dehydrogenase Total Bilirubin Direct Bilirubin CK-MB (CK-2) C-Reactive Protein NT-Pro-B Natriuret Pep Total Protein Albumin Arterial Blood Glucose Urine WBC (Auto) Urine Creatinine 01/02/20 01/02/20 01/03/20 21:43 23:33 05:42 WBC RBC Hgb Hct MCHC RDW MCV MCH Lymph % (Auto) [place] % (Auto) [place] # Eos # Lymph # (Auto) [place] # (Auto) Eos # (Auto) Seg Neutrophils % Seg Neuts % (Manual) Baso # (Auto) Lymphocytes % (Manual) Monocytes % (Manual) Eosinophils % (Manual) Basophils % (Manual) Seg Neutrophils # Seg Neutrophils # Man Lymphocytes # (Manual) Monocytes # (Manual) Eosinophils # (Manual) Nucleated RBC % Basophils # (Manual) PT INR APTT Heparin Anti-Xa Level 0.10 L ABG pH POC ABG pO2 ABG pO2 ABG HCO3 ABG O2 Saturation ABG Base Excess POC ABG pCO2 ABG Hemoglobin ABG Oxyhemoglobin ABG Sodium ABG Chloride ABG Glucose Oxyhemoglobin Sodium Potassium Chloride Carbon Dioxide BUN Creatinine Glucose POC Glucose 180 H 163 H Lactic Acid Calcium Phosphorus Magnesium AST ALT Lactate Dehydrogenase Total Bilirubin Direct Bilirubin CK-MB (CK-2) C-Reactive Protein NT-Pro-B Natriuret Pep Total Protein Albumin Arterial Blood Glucose Urine WBC (Auto) Urine Creatinine 01/03/20 01/03/20 01/03/20 06:50 07:25 07:45 WBC 12.1 H RBC 3.35 L Hgb 9.0 L Hct 28.9 L MCHC 31 L RDW 16.6 H MCV MCH 27 L Lymph % (Auto) 13.0 L [place] % (Auto) 8.6 H [place] # Eos # Lymph # (Auto) [place] # (Auto) 1.0 H Eos # (Auto) Seg Neutrophils % 75.9 H Seg Neuts % (Manual) Baso # (Auto) Lymphocytes % (Manual) Monocytes % (Manual) Eosinophils % (Manual) Basophils % (Manual) Seg Neutrophils # 9.2 H Seg Neutrophils # Man Lymphocytes # (Manual) Monocytes # (Manual) Eosinophils # (Manual) Nucleated RBC % Basophils # (Manual) PT INR APTT Heparin Anti-Xa Level 0.29 L ABG pH POC ABG pO2 ABG pO2 ABG HCO3 ABG O2 Saturation ABG Base Excess POC ABG pCO2 ABG Hemoglobin ABG Oxyhemoglobin ABG Sodium ABG Chloride ABG Glucose Oxyhemoglobin Sodium Potassium 3.3 L D Chloride Carbon Dioxide 35 H D BUN 23 H Creatinine 0.6 L Glucose 149 H POC Glucose Lactic Acid Calcium Phosphorus Magnesium AST ALT 88 H Lactate Dehydrogenase Total Bilirubin Direct Bilirubin CK-MB (CK-2) C-Reactive Protein NT-Pro-B Natriuret Pep Total Protein 6.2 L Albumin 2.9 L Arterial Blood Glucose Urine WBC (Auto) Urine Creatinine 01/03/20 01/03/20 01/03/20 12:05 17:42 18:30 WBC RBC Hgb Hct MCHC RDW MCV MCH Lymph % (Auto) [place] % (Auto) [place] # Eos # Lymph # (Auto) [place] # (Auto) Eos # (Auto) Seg Neutrophils % Seg Neuts % (Manual) Baso # (Auto) Lymphocytes % (Manual) Monocytes % (Manual) Eosinophils % (Manual) Basophils % (Manual) Seg Neutrophils # Seg Neutrophils # Man Lymphocytes # (Manual) Monocytes # (Manual) Eosinophils # (Manual) Nucleated RBC % Basophils # (Manual) PT INR APTT Heparin Anti-Xa Level ABG pH POC ABG pO2 ABG pO2 70.7 L ABG HCO3 36.1 H ABG O2 Saturation 94.4 L ABG Base Excess 10.0 H POC ABG pCO2 ABG Hemoglobin 9.7 L ABG Oxyhemoglobin ABG Sodium ABG Chloride ABG Glucose Oxyhemoglobin 91.8 L Sodium Potassium Chloride Carbon Dioxide BUN Creatinine Glucose POC Glucose 128 H 132 H Lactic Acid Calcium Phosphorus Magnesium AST ALT Lactate Dehydrogenase Total Bilirubin Direct Bilirubin CK-MB (CK-2) C-Reactive Protein NT-Pro-B Natriuret Pep Total Protein Albumin Arterial Blood Glucose Urine WBC (Auto) Urine Creatinine 01/04/20 01/04/20 01/04/20 00:10 04:26 05:23 WBC RBC Hgb Hct MCHC RDW MCV MCH Lymph % (Auto) [place] % (Auto) [place] # Eos # Lymph # (Auto) [place] # (Auto) Eos # (Auto) Seg Neutrophils % Seg Neuts % (Manual) Baso # (Auto) Lymphocytes % (Manual) Monocytes % (Manual) Eosinophils % (Manual) Basophils % (Manual) Seg Neutrophils # Seg Neutrophils # Man Lymphocytes # (Manual) Monocytes # (Manual) Eosinophils # (Manual) Nucleated RBC % Basophils # (Manual) PT INR APTT Heparin Anti-Xa Level 0.16 L ABG pH POC ABG pO2 ABG pO2 ABG HCO3 ABG O2 Saturation ABG Base Excess POC ABG pCO2 ABG Hemoglobin ABG Oxyhemoglobin ABG Sodium ABG Chloride ABG Glucose Oxyhemoglobin Sodium Potassium Chloride Carbon Dioxide BUN Creatinine Glucose POC Glucose 121 H 119 H Lactic Acid Calcium Phosphorus Magnesium AST ALT Lactate Dehydrogenase Total Bilirubin Direct Bilirubin CK-MB (CK-2) C-Reactive Protein NT-Pro-B Natriuret Pep Total Protein Albumin Arterial Blood Glucose Urine WBC (Auto) Urine Creatinine 01/04/20 01/04/20 01/04/20 09:50 09:50 12:18 WBC 15.4 H RBC 3.30 L Hgb 8.7 L Hct 28.2 L MCHC 31 L RDW 17.0 H MCV MCH 26 L Lymph % (Auto) [place] % (Auto) 7.6 H [place] # Eos # Lymph # (Auto) [place] # (Auto) 1.2 H Eos # (Auto) Seg Neutrophils % 75.4 H Seg Neuts % (Manual) Baso # (Auto) Lymphocytes % (Manual) Monocytes % (Manual) Eosinophils % (Manual) Basophils % (Manual) Seg Neutrophils # 11.6 H Seg Neutrophils # Man Lymphocytes # (Manual) Monocytes # (Manual) Eosinophils # (Manual) Nucleated RBC % Basophils # (Manual) PT INR APTT Heparin Anti-Xa Level ABG pH POC ABG pO2 ABG pO2 ABG HCO3 ABG O2 Saturation ABG Base Excess POC ABG pCO2 ABG Hemoglobin ABG Oxyhemoglobin ABG Sodium ABG Chloride ABG Glucose Oxyhemoglobin Sodium 148 H Potassium 3.5 L Chloride Carbon Dioxide 32 H BUN Creatinine 0.6 L Glucose 114 H POC Glucose 111 H Lactic Acid Calcium Phosphorus Magnesium AST ALT 59 H Lactate Dehydrogenase Total Bilirubin Direct Bilirubin CK-MB (CK-2) C-Reactive Protein NT-Pro-B Natriuret Pep Total Protein Albumin 2.6 L Arterial Blood Glucose Urine WBC (Auto) Urine Creatinine 01/05/20 01/05/20 01/05/20 04:05 04:05 05:19 WBC 11.7 H RBC 3.50 L Hgb 9.3 L Hct 29.9 L MCHC 31 L RDW 16.6 H MCV MCH 27 L Lymph % (Auto) 13.1 L [place] % (Auto) 9.7 H [place] # Eos # Lymph # (Auto) [place] # (Auto) 1.1 H Eos # (Auto) Seg Neutrophils % 74.0 H Seg Neuts % (Manual) Baso # (Auto) Lymphocytes % (Manual) Monocytes % (Manual) Eosinophils % (Manual) Basophils % (Manual) Seg Neutrophils # 8.6 H Seg Neutrophils # Man Lymphocytes # (Manual) Monocytes # (Manual) Eosinophils # (Manual) Nucleated RBC % Basophils # (Manual) PT INR APTT Heparin Anti-Xa Level ABG pH POC ABG pO2 ABG pO2 ABG HCO3 ABG O2 Saturation ABG Base Excess POC ABG pCO2 ABG Hemoglobin ABG Oxyhemoglobin ABG Sodium ABG Chloride ABG Glucose Oxyhemoglobin Sodium 151 H Potassium Chloride Carbon Dioxide 34 H BUN Creatinine 0.7 L Glucose POC Glucose 112 H Lactic Acid Calcium Phosphorus Magnesium AST ALT 59 H Lactate Dehydrogenase Total Bilirubin Direct Bilirubin CK-MB (CK-2) C-Reactive Protein NT-Pro-B Natriuret Pep Total Protein 5.8 L Albumin 2.6 L Arterial Blood Glucose Urine WBC (Auto) Urine Creatinine 01/05/20 01/06/20 01/06/20 16:04 00:23 04:44 WBC RBC 3.36 L Hgb 8.9 L Hct 28.7 L MCHC 31 L RDW 16.9 H MCV MCH 26 L Lymph % (Auto) [place] % (Auto) 9.4 H [place] # Eos # Lymph # (Auto) [place] # (Auto) Eos # (Auto) Seg Neutrophils % Seg Neuts % (Manual) Baso # (Auto) Lymphocytes % (Manual) Monocytes % (Manual) Eosinophils % (Manual) Basophils % (Manual) Seg Neutrophils # Seg Neutrophils # Man Lymphocytes # (Manual) Monocytes # (Manual) Eosinophils # (Manual) Nucleated RBC % Basophils # (Manual) PT INR APTT Heparin Anti-Xa Level ABG pH POC ABG pO2 ABG pO2 ABG HCO3 ABG O2 Saturation ABG Base Excess POC ABG pCO2 ABG Hemoglobin ABG Oxyhemoglobin ABG Sodium ABG Chloride ABG Glucose Oxyhemoglobin Sodium 151 H Potassium 3.2 L Chloride Carbon Dioxide 34 H BUN Creatinine 0.6 L Glucose POC Glucose 107 H Lactic Acid Calcium Phosphorus Magnesium AST ALT Lactate Dehydrogenase Total Bilirubin Direct Bilirubin CK-MB (CK-2) C-Reactive Protein NT-Pro-B Natriuret Pep Total Protein Albumin Arterial Blood Glucose Urine WBC (Auto) Urine Creatinine 01/06/20 01/06/20 01/06/20 04:44 05:33 12:04 WBC RBC Hgb Hct MCHC RDW MCV MCH Lymph % (Auto) [place] % (Auto) [place] # Eos # Lymph # (Auto) [place] # (Auto) Eos # (Auto) Seg Neutrophils % Seg Neuts % (Manual) Baso # (Auto) Lymphocytes % (Manual) Monocytes % (Manual) Eosinophils % (Manual) Basophils % (Manual) Seg Neutrophils # Seg Neutrophils # Man Lymphocytes # (Manual) Monocytes # (Manual) Eosinophils # (Manual) Nucleated RBC % Basophils # (Manual) PT INR APTT Heparin Anti-Xa Level ABG pH POC ABG pO2 ABG pO2 ABG HCO3 ABG O2 Saturation ABG Base Excess POC ABG pCO2 ABG Hemoglobin ABG Oxyhemoglobin ABG Sodium ABG Chloride ABG Glucose Oxyhemoglobin Sodium 151 H Potassium 3.4 L Chloride Carbon Dioxide 33 H BUN Creatinine 0.6 L Glucose 118 H POC Glucose 118 H 123 H Lactic Acid Calcium Phosphorus Magnesium AST ALT Lactate Dehydrogenase Total Bilirubin Direct Bilirubin CK-MB (CK-2) C-Reactive Protein NT-Pro-B Natriuret Pep Total Protein 6.2 L Albumin 2.6 L Arterial Blood Glucose Urine WBC (Auto) Urine Creatinine 01/06/20 01/07/20 01/07/20 17:54 00:06 04:10 WBC RBC 3.42 L Hgb 8.9 L Hct 29.0 L MCHC 31 L RDW 17.1 H MCV MCH 26 L Lymph % (Auto) [place] % (Auto) 8.4 H [place] # Eos # Lymph # (Auto) [place] # (Auto) Eos # (Auto) Seg Neutrophils % Seg Neuts % (Manual) Baso # (Auto) Lymphocytes % (Manual) Monocytes % (Manual) Eosinophils % (Manual) Basophils % (Manual) Seg Neutrophils # Seg Neutrophils # Man Lymphocytes # (Manual) Monocytes # (Manual) Eosinophils # (Manual) Nucleated RBC % Basophils # (Manual) PT INR APTT Heparin Anti-Xa Level ABG pH POC ABG pO2 ABG pO2 ABG HCO3 ABG O2 Saturation ABG Base Excess POC ABG pCO2 ABG Hemoglobin ABG Oxyhemoglobin ABG Sodium ABG Chloride ABG Glucose Oxyhemoglobin Sodium Potassium Chloride Carbon Dioxide BUN Creatinine Glucose POC Glucose 112 H 126 H Lactic Acid Calcium Phosphorus Magnesium AST ALT Lactate Dehydrogenase Total Bilirubin Direct Bilirubin CK-MB (CK-2) C-Reactive Protein NT-Pro-B Natriuret Pep Total Protein Albumin Arterial Blood Glucose Urine WBC (Auto) Urine Creatinine 01/07/20 01/07/20 01/07/20 04:10 05:59 12:27 WBC RBC Hgb Hct MCHC RDW MCV MCH Lymph % (Auto) [place] % (Auto) [place] # Eos # Lymph # (Auto) [place] # (Auto) Eos # (Auto) Seg Neutrophils % Seg Neuts % (Manual) Baso # (Auto) Lymphocytes % (Manual) Monocytes % (Manual) Eosinophils % (Manual) Basophils % (Manual) Seg Neutrophils # Seg Neutrophils # Man Lymphocytes # (Manual) Monocytes # (Manual) Eosinophils # (Manual) Nucleated RBC % Basophils # (Manual) PT INR APTT Heparin Anti-Xa Level ABG pH POC ABG pO2 ABG pO2 ABG HCO3 ABG O2 Saturation ABG Base Excess POC ABG pCO2 ABG Hemoglobin ABG Oxyhemoglobin ABG Sodium ABG Chloride ABG Glucose Oxyhemoglobin Sodium 153 H Potassium 3.5 L Chloride Carbon Dioxide 34 H BUN Creatinine 0.6 L Glucose 121 H POC Glucose 121 H 126 H Lactic Acid Calcium Phosphorus Magnesium AST ALT Lactate Dehydrogenase Total Bilirubin Direct Bilirubin CK-MB (CK-2) C-Reactive Protein NT-Pro-B Natriuret Pep Total Protein 5.9 L Albumin 2.4 L Arterial Blood Glucose Urine WBC (Auto) Urine Creatinine 01/07/20 01/08/20 01/08/20 18:12 00:03 05:41 WBC RBC Hgb Hct MCHC RDW MCV MCH Lymph % (Auto) [place] % (Auto) [place] # Eos # Lymph # (Auto) [place] # (Auto) Eos # (Auto) Seg Neutrophils % Seg Neuts % (Manual) Baso # (Auto) Lymphocytes % (Manual) Monocytes % (Manual) Eosinophils % (Manual) Basophils % (Manual) Seg Neutrophils # Seg Neutrophils # Man Lymphocytes # (Manual) Monocytes # (Manual) Eosinophils # (Manual) Nucleated RBC % Basophils # (Manual) PT INR APTT Heparin Anti-Xa Level ABG pH POC ABG pO2 ABG pO2 ABG HCO3 ABG O2 Saturation ABG Base Excess POC ABG pCO2 ABG Hemoglobin ABG Oxyhemoglobin ABG Sodium ABG Chloride ABG Glucose Oxyhemoglobin Sodium Potassium Chloride Carbon Dioxide BUN Creatinine Glucose POC Glucose 124 H 130 H 138 H Lactic Acid Calcium Phosphorus Magnesium AST ALT Lactate Dehydrogenase Total Bilirubin Direct Bilirubin CK-MB (CK-2) C-Reactive Protein NT-Pro-B Natriuret Pep Total Protein Albumin Arterial Blood Glucose Urine WBC (Auto) Urine Creatinine 01/08/20 01/08/20 01/08/20 09:28 11:42 18:21 WBC RBC Hgb Hct MCHC RDW MCV MCH Lymph % (Auto) [place] % (Auto) [place] # Eos # Lymph # (Auto) [place] # (Auto) Eos # (Auto) Seg Neutrophils % Seg Neuts % (Manual) Baso # (Auto) Lymphocytes % (Manual) Monocytes % (Manual) Eosinophils % (Manual) Basophils % (Manual) Seg Neutrophils # Seg Neutrophils # Man Lymphocytes # (Manual) Monocytes # (Manual) Eosinophils # (Manual) Nucleated RBC % Basophils # (Manual) PT INR APTT Heparin Anti-Xa Level ABG pH POC ABG pO2 ABG pO2 ABG HCO3 ABG O2 Saturation ABG Base Excess POC ABG pCO2 ABG Hemoglobin ABG Oxyhemoglobin ABG Sodium ABG Chloride ABG Glucose Oxyhemoglobin Sodium Potassium Chloride Carbon Dioxide BUN Creatinine Glucose POC Glucose 181 H 150 H 129 H Lactic Acid Calcium Phosphorus Magnesium AST ALT Lactate Dehydrogenase Total Bilirubin Direct Bilirubin CK-MB (CK-2) C-Reactive Protein NT-Pro-B Natriuret Pep Total Protein Albumin Arterial Blood Glucose Urine WBC (Auto) Urine Creatinine 01/08/20 01/08/20 01/09/20 19:25 23:55 04:11 WBC RBC 3.43 L Hgb 8.9 L Hct 28.7 L MCHC 31 L RDW 17.6 H MCV MCH 26 L Lymph % (Auto) [place] % (Auto) 8.6 H [place] # Eos # Lymph # (Auto) [place] # (Auto) Eos # (Auto) Seg Neutrophils % Seg Neuts % (Manual) Baso # (Auto) Lymphocytes % (Manual) Monocytes % (Manual) Eosinophils % (Manual) Basophils % (Manual) Seg Neutrophils # Seg Neutrophils # Man Lymphocytes # (Manual) Monocytes # (Manual) Eosinophils # (Manual) Nucleated RBC % Basophils # (Manual) PT INR APTT Heparin Anti-Xa Level ABG pH POC ABG pO2 ABG pO2 ABG HCO3 ABG O2 Saturation ABG Base Excess POC ABG pCO2 ABG Hemoglobin ABG Oxyhemoglobin ABG Sodium ABG Chloride ABG Glucose Oxyhemoglobin Sodium Potassium Chloride Carbon Dioxide BUN Creatinine 0.7 L Glucose 117 H POC Glucose 132 H Lactic Acid Calcium Phosphorus Magnesium AST ALT Lactate Dehydrogenase Total Bilirubin Direct Bilirubin CK-MB (CK-2) C-Reactive Protein NT-Pro-B Natriuret Pep Total Protein Albumin Arterial Blood Glucose Urine WBC (Auto) Urine Creatinine 01/09/20 01/09/20 01/09/20 04:11 05:38 22:58 WBC RBC Hgb Hct MCHC RDW MCV MCH Lymph % (Auto) [place] % (Auto) [place] # Eos # Lymph # (Auto) [place] # (Auto) Eos # (Auto) Seg Neutrophils % Seg Neuts % (Manual) Baso # (Auto) Lymphocytes % (Manual) Monocytes % (Manual) Eosinophils % (Manual) Basophils % (Manual) Seg Neutrophils # Seg Neutrophils # Man Lymphocytes # (Manual) Monocytes # (Manual) Eosinophils # (Manual) Nucleated RBC % Basophils # (Manual) PT INR APTT Heparin Anti-Xa Level ABG pH POC ABG pO2 ABG pO2 ABG HCO3 ABG O2 Saturation ABG Base Excess POC ABG pCO2 ABG Hemoglobin ABG Oxyhemoglobin ABG Sodium ABG Chloride ABG Glucose Oxyhemoglobin Sodium 147 H Potassium 3.3 L D Chloride Carbon Dioxide 32 H BUN Creatinine 0.6 L Glucose 106 H POC Glucose 107 H 113 H Lactic Acid Calcium Phosphorus Magnesium AST ALT Lactate Dehydrogenase Total Bilirubin Direct Bilirubin CK-MB (CK-2) C-Reactive Protein NT-Pro-B Natriuret Pep Total Protein Albumin Arterial Blood Glucose Urine WBC (Auto) Urine Creatinine 01/10/20 01/10/20 01/10/20 04:05 11:36 17:54 WBC RBC Hgb Hct MCHC RDW MCV MCH Lymph % (Auto) [place] % (Auto) [place] # Eos # Lymph # (Auto) [place] # (Auto) Eos # (Auto) Seg Neutrophils % Seg Neuts % (Manual) Baso # (Auto) Lymphocytes % (Manual) Monocytes % (Manual) Eosinophils % (Manual) Basophils % (Manual) Seg Neutrophils # Seg Neutrophils # Man Lymphocytes # (Manual) Monocytes # (Manual) Eosinophils # (Manual) Nucleated RBC % Basophils # (Manual) PT INR APTT Heparin Anti-Xa Level ABG pH POC ABG pO2 ABG pO2 ABG HCO3 ABG O2 Saturation ABG Base Excess POC ABG pCO2 ABG Hemoglobin ABG Oxyhemoglobin ABG Sodium ABG Chloride ABG Glucose Oxyhemoglobin Sodium Potassium Chloride Carbon Dioxide BUN Creatinine 0.7 L Glucose 110 H POC Glucose 129 H 117 H Lactic Acid Calcium Phosphorus Magnesium AST ALT Lactate Dehydrogenase Total Bilirubin Direct Bilirubin CK-MB (CK-2) C-Reactive Protein NT-Pro-B Natriuret Pep Total Protein Albumin Arterial Blood Glucose Urine WBC (Auto) Urine Creatinine 01/10/20 01/11/20 01/11/20 23:52 03:19 12:09 WBC RBC Hgb Hct MCHC RDW MCV MCH Lymph % (Auto) [place] % (Auto) [place] # Eos # Lymph # (Auto) [place] # (Auto) Eos # (Auto) Seg Neutrophils % Seg Neuts % (Manual) Baso # (Auto) Lymphocytes % (Manual) Monocytes % (Manual) Eosinophils % (Manual) Basophils % (Manual) Seg Neutrophils # Seg Neutrophils # Man Lymphocytes # (Manual) Monocytes # (Manual) Eosinophils # (Manual) Nucleated RBC % Basophils # (Manual) PT INR APTT Heparin Anti-Xa Level ABG pH POC ABG pO2 ABG pO2 ABG HCO3 ABG O2 Saturation ABG Base Excess POC ABG pCO2 ABG Hemoglobin ABG Oxyhemoglobin ABG Sodium ABG Chloride ABG Glucose Oxyhemoglobin Sodium Potassium Chloride Carbon Dioxide BUN Creatinine Glucose POC Glucose 117 H 136 H 115 H Lactic Acid Calcium Phosphorus Magnesium AST ALT Lactate Dehydrogenase Total Bilirubin Direct Bilirubin CK-MB (CK-2) C-Reactive Protein NT-Pro-B Natriuret Pep Total Protein Albumin Arterial Blood Glucose Urine WBC (Auto) Urine Creatinine 01/11/20 01/11/20 01/12/20 18:27 23:28 00:23 WBC RBC Hgb 9.8 L Hct 31.6 L MCHC 31 L RDW 17.8 H MCV 83 L MCH 26 L Lymph % (Auto) [place] % (Auto) 8.0 H [place] # Eos # Lymph # (Auto) [place] # (Auto) Eos # (Auto) Seg Neutrophils % Seg Neuts % (Manual) Baso # (Auto) Lymphocytes % (Manual) Monocytes % (Manual) Eosinophils % (Manual) Basophils % (Manual) Seg Neutrophils # Seg Neutrophils # Man Lymphocytes # (Manual) Monocytes # (Manual) Eosinophils # (Manual) Nucleated RBC % Basophils # (Manual) PT INR APTT Heparin Anti-Xa Level ABG pH POC ABG pO2 ABG pO2 ABG HCO3 ABG O2 Saturation ABG Base Excess POC ABG pCO2 ABG Hemoglobin ABG Oxyhemoglobin ABG Sodium ABG Chloride ABG Glucose Oxyhemoglobin Sodium Potassium Chloride Carbon Dioxide BUN Creatinine Glucose POC Glucose 118 H 122 H Lactic Acid Calcium Phosphorus Magnesium AST ALT Lactate Dehydrogenase Total Bilirubin Direct Bilirubin CK-MB (CK-2) C-Reactive Protein NT-Pro-B Natriuret Pep Total Protein Albumin Arterial Blood Glucose Urine WBC (Auto) Urine Creatinine 01/12/20 01/12/20 01/12/20 00:23 04:18 04:18 WBC RBC Hgb 9.6 L Hct 30.9 L MCHC 31 L RDW 17.3 H MCV 81 L MCH 25 L Lymph % (Auto) [place] % (Auto) [place] # Eos # Lymph # (Auto) [place] # (Auto) Eos # (Auto) Seg Neutrophils % Seg Neuts % (Manual) Baso # (Auto) Lymphocytes % (Manual) Monocytes % (Manual) Eosinophils % (Manual) Basophils % (Manual) Seg Neutrophils # Seg Neutrophils # Man Lymphocytes # (Manual) Monocytes # (Manual) Eosinophils # (Manual) Nucleated RBC % Basophils # (Manual) PT INR APTT Heparin Anti-Xa Level ABG pH POC ABG pO2 ABG pO2 ABG HCO3 ABG O2 Saturation ABG Base Excess POC ABG pCO2 ABG Hemoglobin ABG Oxyhemoglobin ABG Sodium ABG Chloride ABG Glucose Oxyhemoglobin Sodium Potassium Chloride Carbon Dioxide BUN Creatinine 0.7 L 0.7 L Glucose 111 H 108 H POC Glucose Lactic Acid Calcium Phosphorus Magnesium AST ALT Lactate Dehydrogenase Total Bilirubin Direct Bilirubin CK-MB (CK-2) C-Reactive Protein NT-Pro-B Natriuret Pep Total Protein Albumin 2.6 L Arterial Blood Glucose Urine WBC (Auto) Urine Creatinine 01/12/20 01/12/20 01/12/20 06:03 12:27 13:58 WBC RBC Hgb Hct MCHC RDW MCV MCH Lymph % (Auto) [place] % (Auto) [place] # Eos # Lymph # (Auto) [place] # (Auto) Eos # (Auto) Seg Neutrophils % Seg Neuts % (Manual) Baso # (Auto) Lymphocytes % (Manual) Monocytes % (Manual) Eosinophils % (Manual) Basophils % (Manual) Seg Neutrophils # Seg Neutrophils # Man Lymphocytes # (Manual) Monocytes # (Manual) Eosinophils # (Manual) Nucleated RBC % Basophils # (Manual) PT INR APTT Heparin Anti-Xa Level ABG pH 7.453 H POC ABG pO2 76.6 L ABG pO2 ABG HCO3 ABG O2 Saturation ABG Base Excess POC ABG pCO2 ABG Hemoglobin 10.3 L ABG Oxyhemoglobin ABG Sodium ABG Chloride ABG Glucose 99 H Oxyhemoglobin Sodium Potassium Chloride Carbon Dioxide BUN Creatinine Glucose POC Glucose 128 H 121 H Lactic Acid Calcium Phosphorus Magnesium AST ALT Lactate Dehydrogenase Total Bilirubin Direct Bilirubin CK-MB (CK-2) C-Reactive Protein NT-Pro-B Natriuret Pep Total Protein Albumin Arterial Blood Glucose 99 H Urine WBC (Auto) Urine Creatinine 01/12/20 01/13/20 01/13/20 18:24 12:01 17:46 WBC RBC Hgb Hct MCHC RDW MCV MCH Lymph % (Auto) [place] % (Auto) [place] # Eos # Lymph # (Auto) [place] # (Auto) Eos # (Auto) Seg Neutrophils % Seg Neuts % (Manual) Baso # (Auto) Lymphocytes % (Manual) Monocytes % (Manual) Eosinophils % (Manual) Basophils % (Manual) Seg Neutrophils # Seg Neutrophils # Man Lymphocytes # (Manual) Monocytes # (Manual) Eosinophils # (Manual) Nucleated RBC % Basophils # (Manual) PT INR APTT Heparin Anti-Xa Level ABG pH POC ABG pO2 ABG pO2 ABG HCO3 ABG O2 Saturation ABG Base Excess POC ABG pCO2 ABG Hemoglobin ABG Oxyhemoglobin ABG Sodium ABG Chloride ABG Glucose Oxyhemoglobin Sodium Potassium Chloride Carbon Dioxide BUN Creatinine Glucose POC Glucose 119 H 107 H 124 H Lactic Acid Calcium Phosphorus Magnesium AST ALT Lactate Dehydrogenase Total Bilirubin Direct Bilirubin CK-MB (CK-2) C-Reactive Protein NT-Pro-B Natriuret Pep Total Protein Albumin Arterial Blood Glucose Urine WBC (Auto) Urine Creatinine 01/13/20 01/14/20 01/14/20 20:40 00:10 05:33 WBC RBC Hgb Hct MCHC RDW MCV MCH Lymph % (Auto) [place] % (Auto) [place] # Eos # Lymph # (Auto) [place] # (Auto) Eos # (Auto) Seg Neutrophils % Seg Neuts % (Manual) Baso # (Auto) Lymphocytes % (Manual) Monocytes % (Manual) Eosinophils % (Manual) Basophils % (Manual) Seg Neutrophils # Seg Neutrophils # Man Lymphocytes # (Manual) Monocytes # (Manual) Eosinophils # (Manual) Nucleated RBC % Basophils # (Manual) PT INR APTT Heparin Anti-Xa Level ABG pH POC ABG pO2 ABG pO2 65.3 L ABG HCO3 31.8 H ABG O2 Saturation 93.5 L ABG Base Excess 6.7 H POC ABG pCO2 ABG Hemoglobin 13.3 L ABG Oxyhemoglobin ABG Sodium ABG Chloride ABG Glucose Oxyhemoglobin 90.9 L Sodium Potassium Chloride Carbon Dioxide BUN Creatinine Glucose POC Glucose 111 H 111 H Lactic Acid Calcium Phosphorus Magnesium AST ALT Lactate Dehydrogenase Total Bilirubin Direct Bilirubin CK-MB (CK-2) C-Reactive Protein NT-Pro-B Natriuret Pep Total Protein Albumin Arterial Blood Glucose Urine WBC (Auto) Urine Creatinine 01/14/20 01/14/20 01/14/20 12:10 16:14 16:14 WBC RBC Hgb 10.6 L Hct 34.2 L MCHC 31 L RDW 18.3 H MCV 83 L MCH 26 L Lymph % (Auto) [place] % (Auto) 7.4 H [place] # Eos # Lymph # (Auto) [place] # (Auto) Eos # (Auto) Seg Neutrophils % 71.9 H Seg Neuts % (Manual) Baso # (Auto) Lymphocytes % (Manual) Monocytes % (Manual) Eosinophils % (Manual) Basophils % (Manual) Seg Neutrophils # Seg Neutrophils # Man Lymphocytes # (Manual) Monocytes # (Manual) Eosinophils # (Manual) Nucleated RBC % Basophils # (Manual) PT INR APTT Heparin Anti-Xa Level ABG pH POC ABG pO2 ABG pO2 ABG HCO3 ABG O2 Saturation ABG Base Excess POC ABG pCO2 ABG Hemoglobin ABG Oxyhemoglobin ABG Sodium ABG Chloride ABG Glucose Oxyhemoglobin Sodium Potassium Chloride Carbon Dioxide 31 H BUN Creatinine 0.6 L Glucose 131 H POC Glucose 139 H Lactic Acid Calcium Phosphorus Magnesium AST ALT Lactate Dehydrogenase Total Bilirubin Direct Bilirubin CK-MB (CK-2) C-Reactive Protein NT-Pro-B Natriuret Pep Total Protein Albumin Arterial Blood Glucose Urine WBC (Auto) Urine Creatinine 01/14/20 01/15/20 01/15/20 18:05 00:52 05:35 WBC RBC Hgb Hct MCHC RDW MCV MCH Lymph % (Auto) [place] % (Auto) [place] # Eos # Lymph # (Auto) [place] # (Auto) Eos # (Auto) Seg Neutrophils % Seg Neuts % (Manual) Baso # (Auto) Lymphocytes % (Manual) Monocytes % (Manual) Eosinophils % (Manual) Basophils % (Manual) Seg Neutrophils # Seg Neutrophils # Man Lymphocytes # (Manual) Monocytes # (Manual) Eosinophils # (Manual) Nucleated RBC % Basophils # (Manual) PT INR APTT Heparin Anti-Xa Level ABG pH POC ABG pO2 ABG pO2 ABG HCO3 ABG O2 Saturation ABG Base Excess POC ABG pCO2 ABG Hemoglobin ABG Oxyhemoglobin ABG Sodium ABG Chloride ABG Glucose Oxyhemoglobin Sodium Potassium Chloride Carbon Dioxide BUN Creatinine Glucose POC Glucose 147 H 140 H 159 H Lactic Acid Calcium Phosphorus Magnesium AST ALT Lactate Dehydrogenase Total Bilirubin Direct Bilirubin CK-MB (CK-2) C-Reactive Protein NT-Pro-B Natriuret Pep Total Protein Albumin Arterial Blood Glucose Urine WBC (Auto) Urine Creatinine 01/15/20 01/15/20 01/16/20 12:52 17:43 00:32 WBC RBC Hgb Hct MCHC RDW MCV MCH Lymph % (Auto) [place] % (Auto) [place] # Eos # Lymph # (Auto) [place] # (Auto) Eos # (Auto) Seg Neutrophils % Seg Neuts % (Manual) Baso # (Auto) Lymphocytes % (Manual) Monocytes % (Manual) Eosinophils % (Manual) Basophils % (Manual) Seg Neutrophils # Seg Neutrophils # Man Lymphocytes # (Manual) Monocytes # (Manual) Eosinophils # (Manual) Nucleated RBC % Basophils # (Manual) PT INR APTT Heparin Anti-Xa Level ABG pH POC ABG pO2 ABG pO2 ABG HCO3 ABG O2 Saturation ABG Base Excess POC ABG pCO2 ABG Hemoglobin ABG Oxyhemoglobin ABG Sodium ABG Chloride ABG Glucose Oxyhemoglobin Sodium Potassium Chloride Carbon Dioxide BUN Creatinine Glucose POC Glucose 164 H 167 H 153 H Lactic Acid Calcium Phosphorus Magnesium AST ALT Lactate Dehydrogenase Total Bilirubin Direct Bilirubin CK-MB (CK-2) C-Reactive Protein NT-Pro-B Natriuret Pep Total Protein Albumin Arterial Blood Glucose Urine WBC (Auto) Urine Creatinine 01/16/20 01/16/20 01/17/20 05:46 11:48 06:38 WBC RBC Hgb Hct MCHC RDW MCV MCH Lymph % (Auto) [place] % (Auto) [place] # Eos # Lymph # (Auto) [place] # (Auto) Eos # (Auto) Seg Neutrophils % Seg Neuts % (Manual) Baso # (Auto) Lymphocytes % (Manual) Monocytes % (Manual) Eosinophils % (Manual) Basophils % (Manual) Seg Neutrophils # Seg Neutrophils # Man Lymphocytes # (Manual) Monocytes # (Manual) Eosinophils # (Manual) Nucleated RBC % Basophils # (Manual) PT INR APTT Heparin Anti-Xa Level ABG pH POC ABG pO2 ABG pO2 ABG HCO3 ABG O2 Saturation ABG Base Excess POC ABG pCO2 ABG Hemoglobin ABG Oxyhemoglobin ABG Sodium ABG Chloride ABG Glucose Oxyhemoglobin Sodium Potassium Chloride Carbon Dioxide BUN Creatinine Glucose POC Glucose 163 H 155 H 116 H Lactic Acid Calcium Phosphorus Magnesium AST ALT Lactate Dehydrogenase Total Bilirubin Direct Bilirubin CK-MB (CK-2) C-Reactive Protein NT-Pro-B Natriuret Pep Total Protein Albumin Arterial Blood Glucose Urine WBC (Auto) Urine Creatinine 01/17/20 01/17/20 01/18/20 11:36 17:43 00:12 WBC RBC Hgb Hct MCHC RDW MCV MCH Lymph % (Auto) [place] % (Auto) [place] # Eos # Lymph # (Auto) [place] # (Auto) Eos # (Auto) Seg Neutrophils % Seg Neuts % (Manual) Baso # (Auto) Lymphocytes % (Manual) Monocytes % (Manual) Eosinophils % (Manual) Basophils % (Manual) Seg Neutrophils # Seg Neutrophils # Man Lymphocytes # (Manual) Monocytes # (Manual) Eosinophils # (Manual) Nucleated RBC % Basophils # (Manual) PT INR APTT Heparin Anti-Xa Level ABG pH POC ABG pO2 ABG pO2 ABG HCO3 ABG O2 Saturation ABG Base Excess POC ABG pCO2 ABG Hemoglobin ABG Oxyhemoglobin ABG Sodium ABG Chloride ABG Glucose Oxyhemoglobin Sodium Potassium Chloride Carbon Dioxide BUN Creatinine Glucose POC Glucose 110 H 134 H 108 H Lactic Acid Calcium Phosphorus Magnesium AST ALT Lactate Dehydrogenase Total Bilirubin Direct Bilirubin CK-MB (CK-2) C-Reactive Protein NT-Pro-B Natriuret Pep Total Protein Albumin Arterial Blood Glucose Urine WBC (Auto) Urine Creatinine 01/18/20 01/18/20 01/18/20 05:37 06:46 06:46 WBC RBC Hgb 10.1 L Hct 32.2 L MCHC 31 L RDW 18.1 H MCV 81 L MCH 25 L Lymph % (Auto) [place] % (Auto) [place] # Eos # Lymph # (Auto) [place] # (Auto) Eos # (Auto) Seg Neutrophils % 71.9 H Seg Neuts % (Manual) Baso # (Auto) Lymphocytes % (Manual) Monocytes % (Manual) Eosinophils % (Manual) Basophils % (Manual) Seg Neutrophils # Seg Neutrophils # Man Lymphocytes # (Manual) Monocytes # (Manual) Eosinophils # (Manual) Nucleated RBC % Basophils # (Manual) PT INR APTT Heparin Anti-Xa Level ABG pH POC ABG pO2 ABG pO2 ABG HCO3 ABG O2 Saturation ABG Base Excess POC ABG pCO2 ABG Hemoglobin ABG Oxyhemoglobin ABG Sodium ABG Chloride ABG Glucose Oxyhemoglobin Sodium Potassium Chloride Carbon Dioxide BUN Creatinine 0.7 L Glucose 155 H POC Glucose 168 H Lactic Acid Calcium Phosphorus Magnesium AST ALT Lactate Dehydrogenase Total Bilirubin Direct Bilirubin CK-MB (CK-2) C-Reactive Protein NT-Pro-B Natriuret Pep Total Protein Albumin Arterial Blood Glucose Urine WBC (Auto) Urine Creatinine 01/18/20 01/18/20 01/18/20 12:05 17:14 23:28 WBC RBC Hgb Hct MCHC RDW MCV MCH Lymph % (Auto) [place] % (Auto) [place] # Eos # Lymph # (Auto) [place] # (Auto) Eos # (Auto) Seg Neutrophils % Seg Neuts % (Manual) Baso # (Auto) Lymphocytes % (Manual) Monocytes % (Manual) Eosinophils % (Manual) Basophils % (Manual) Seg Neutrophils # Seg Neutrophils # Man Lymphocytes # (Manual) Monocytes # (Manual) Eosinophils # (Manual) Nucleated RBC % Basophils # (Manual) PT INR APTT Heparin Anti-Xa Level ABG pH POC ABG pO2 ABG pO2 ABG HCO3 ABG O2 Saturation ABG Base Excess POC ABG pCO2 ABG Hemoglobin ABG Oxyhemoglobin ABG Sodium ABG Chloride ABG Glucose Oxyhemoglobin Sodium Potassium Chloride Carbon Dioxide BUN Creatinine Glucose POC Glucose 128 H 126 H 128 H Lactic Acid Calcium Phosphorus Magnesium AST ALT Lactate Dehydrogenase Total Bilirubin Direct Bilirubin CK-MB (CK-2) C-Reactive Protein NT-Pro-B Natriuret Pep Total Protein Albumin Arterial Blood Glucose Urine WBC (Auto) Urine Creatinine 01/19/20 01/19/20 01/19/20 05:39 12:33 17:36 WBC RBC Hgb Hct MCHC RDW MCV MCH Lymph % (Auto) [place] % (Auto) [place] # Eos # Lymph # (Auto) [place] # (Auto) Eos # (Auto) Seg Neutrophils % Seg Neuts % (Manual) Baso # (Auto) Lymphocytes % (Manual) Monocytes % (Manual) Eosinophils % (Manual) Basophils % (Manual) Seg Neutrophils # Seg Neutrophils # Man Lymphocytes # (Manual) Monocytes # (Manual) Eosinophils # (Manual) Nucleated RBC % Basophils # (Manual) PT INR APTT Heparin Anti-Xa Level ABG pH POC ABG pO2 ABG pO2 ABG HCO3 ABG O2 Saturation ABG Base Excess POC ABG pCO2 ABG Hemoglobin ABG Oxyhemoglobin ABG Sodium ABG Chloride ABG Glucose Oxyhemoglobin Sodium Potassium Chloride Carbon Dioxide BUN Creatinine Glucose POC Glucose 164 H 171 H 152 H Lactic Acid Calcium Phosphorus Magnesium AST ALT Lactate Dehydrogenase Total Bilirubin Direct Bilirubin CK-MB (CK-2) C-Reactive Protein NT-Pro-B Natriuret Pep Total Protein Albumin Arterial Blood Glucose Urine WBC (Auto) Urine Creatinine 01/20/20 01/20/20 01/20/20 00:12 05:20 05:35 WBC RBC Hgb 9.2 L Hct 29.4 L MCHC 31 L RDW 17.9 H MCV 81 L MCH 25 L Lymph % (Auto) [place] % (Auto) [place] # Eos # Lymph # (Auto) [place] # (Auto) Eos # (Auto) Seg Neutrophils % Seg Neuts % (Manual) Baso # (Auto) Lymphocytes % (Manual) Monocytes % (Manual) Eosinophils % (Manual) Basophils % (Manual) Seg Neutrophils # Seg Neutrophils # Man Lymphocytes # (Manual) Monocytes # (Manual) Eosinophils # (Manual) Nucleated RBC % Basophils # (Manual) PT INR APTT Heparin Anti-Xa Level ABG pH POC ABG pO2 ABG pO2 ABG HCO3 ABG O2 Saturation ABG Base Excess POC ABG pCO2 ABG Hemoglobin ABG Oxyhemoglobin ABG Sodium ABG Chloride ABG Glucose Oxyhemoglobin Sodium Potassium Chloride Carbon Dioxide BUN Creatinine Glucose POC Glucose 120 H 136 H Lactic Acid Calcium Phosphorus Magnesium AST ALT Lactate Dehydrogenase Total Bilirubin Direct Bilirubin CK-MB (CK-2) C-Reactive Protein NT-Pro-B Natriuret Pep Total Protein Albumin Arterial Blood Glucose Urine WBC (Auto) Urine Creatinine 01/20/20 01/20/20 01/20/20 05:40 11:58 14:55 WBC RBC Hgb 9.0 L Hct 28.3 L MCHC RDW MCV MCH Lymph % (Auto) [place] % (Auto) [place] # Eos # Lymph # (Auto) [place] # (Auto) Eos # (Auto) Seg Neutrophils % Seg Neuts % (Manual) Baso # (Auto) Lymphocytes % (Manual) Monocytes % (Manual) Eosinophils % (Manual) Basophils % (Manual) Seg Neutrophils # Seg Neutrophils # Man Lymphocytes # (Manual) Monocytes # (Manual) Eosinophils # (Manual) Nucleated RBC % Basophils # (Manual) PT INR APTT Heparin Anti-Xa Level ABG pH POC ABG pO2 ABG pO2 ABG HCO3 ABG O2 Saturation ABG Base Excess POC ABG pCO2 ABG Hemoglobin ABG Oxyhemoglobin ABG Sodium ABG Chloride ABG Glucose Oxyhemoglobin Sodium Potassium Chloride Carbon Dioxide 32 H BUN 22 H Creatinine 0.7 L Glucose 128 H POC Glucose 152 H Lactic Acid Calcium Phosphorus Magnesium AST ALT Lactate Dehydrogenase Total Bilirubin Direct Bilirubin CK-MB (CK-2) C-Reactive Protein NT-Pro-B Natriuret Pep Total Protein Albumin Arterial Blood Glucose Urine WBC (Auto) Urine Creatinine 01/20/20 01/20/20 01/20/20 14:55 18:14 21:35 WBC RBC Hgb Hct MCHC RDW MCV MCH Lymph % (Auto) [place] % (Auto) [place] # Eos # Lymph # (Auto) [place] # (Auto) Eos # (Auto) Seg Neutrophils % Seg Neuts % (Manual) Baso # (Auto) Lymphocytes % (Manual) Monocytes % (Manual) Eosinophils % (Manual) Basophils % (Manual) Seg Neutrophils # Seg Neutrophils # Man Lymphocytes # (Manual) Monocytes # (Manual) Eosinophils # (Manual) Nucleated RBC % Basophils # (Manual) PT 20.4 H INR 1.72 H APTT 40.6 H Heparin Anti-Xa Level > 2.00 H ABG pH POC ABG pO2 ABG pO2 ABG HCO3 ABG O2 Saturation ABG Base Excess POC ABG pCO2 ABG Hemoglobin ABG Oxyhemoglobin ABG Sodium ABG Chloride ABG Glucose Oxyhemoglobin Sodium Potassium Chloride Carbon Dioxide BUN Creatinine Glucose POC Glucose 150 H Lactic Acid Calcium Phosphorus Magnesium AST ALT Lactate Dehydrogenase Total Bilirubin Direct Bilirubin CK-MB (CK-2) C-Reactive Protein NT-Pro-B Natriuret Pep Total Protein Albumin Arterial Blood Glucose Urine WBC (Auto) Urine Creatinine 01/21/20 01/21/20 01/21/20 00:30 05:47 05:59 WBC RBC Hgb Hct MCHC RDW MCV MCH Lymph % (Auto) [place] % (Auto) [place] # Eos # Lymph # (Auto) [place] # (Auto) Eos # (Auto) Seg Neutrophils % Seg Neuts % (Manual) Baso # (Auto) Lymphocytes % (Manual) Monocytes % (Manual) Eosinophils % (Manual) Basophils % (Manual) Seg Neutrophils # Seg Neutrophils # Man Lymphocytes # (Manual) Monocytes # (Manual) Eosinophils # (Manual) Nucleated RBC % Basophils # (Manual) PT INR APTT Heparin Anti-Xa Level 1.93 H ABG pH POC ABG pO2 ABG pO2 ABG HCO3 ABG O2 Saturation ABG Base Excess POC ABG pCO2 ABG Hemoglobin ABG Oxyhemoglobin ABG Sodium ABG Chloride ABG Glucose Oxyhemoglobin Sodium Potassium Chloride Carbon Dioxide BUN Creatinine Glucose POC Glucose 126 H 148 H Lactic Acid Calcium Phosphorus Magnesium AST ALT Lactate Dehydrogenase Total Bilirubin Direct Bilirubin CK-MB (CK-2) C-Reactive Protein NT-Pro-B Natriuret Pep Total Protein Albumin Arterial Blood Glucose Urine WBC (Auto) Urine Creatinine 01/21/20 01/21/20 01/21/20 12:32 18:20 23:54 WBC RBC Hgb Hct MCHC RDW MCV MCH Lymph % (Auto) [place] % (Auto) [place] # Eos # Lymph # (Auto) [place] # (Auto) Eos # (Auto) Seg Neutrophils % Seg Neuts % (Manual) Baso # (Auto) Lymphocytes % (Manual) Monocytes % (Manual) Eosinophils % (Manual) Basophils % (Manual) Seg Neutrophils # Seg Neutrophils # Man Lymphocytes # (Manual) Monocytes # (Manual) Eosinophils # (Manual) Nucleated RBC % Basophils # (Manual) PT INR APTT Heparin Anti-Xa Level 1.28 H ABG pH POC ABG pO2 ABG pO2 ABG HCO3 ABG O2 Saturation ABG Base Excess POC ABG pCO2 ABG Hemoglobin ABG Oxyhemoglobin ABG Sodium ABG Chloride ABG Glucose Oxyhemoglobin Sodium Potassium Chloride Carbon Dioxide BUN Creatinine Glucose POC Glucose 112 H 146 H Lactic Acid Calcium Phosphorus Magnesium AST ALT Lactate Dehydrogenase Total Bilirubin Direct Bilirubin CK-MB (CK-2) C-Reactive Protein NT-Pro-B Natriuret Pep Total Protein Albumin Arterial Blood Glucose Urine WBC (Auto) Urine Creatinine 01/22/20 01/22/20 01/22/20 04:45 04:45 05:48 WBC RBC Hgb 9.3 L Hct 29.0 L MCHC RDW MCV MCH Lymph % (Auto) [place] % (Auto) [place] # Eos # Lymph # (Auto) [place] # (Auto) Eos # (Auto) Seg Neutrophils % Seg Neuts % (Manual) Baso # (Auto) Lymphocytes % (Manual) Monocytes % (Manual) Eosinophils % (Manual) Basophils % (Manual) Seg Neutrophils # Seg Neutrophils # Man Lymphocytes # (Manual) Monocytes # (Manual) Eosinophils # (Manual) Nucleated RBC % Basophils # (Manual) PT INR APTT Heparin Anti-Xa Level 1.34 H ABG pH POC ABG pO2 ABG pO2 ABG HCO3 ABG O2 Saturation ABG Base Excess POC ABG pCO2 ABG Hemoglobin ABG Oxyhemoglobin ABG Sodium ABG Chloride ABG Glucose Oxyhemoglobin Sodium Potassium Chloride Carbon Dioxide BUN Creatinine Glucose POC Glucose 142 H Lactic Acid Calcium Phosphorus Magnesium AST ALT Lactate Dehydrogenase Total Bilirubin Direct Bilirubin CK-MB (CK-2) C-Reactive Protein NT-Pro-B Natriuret Pep Total Protein Albumin Arterial Blood Glucose Urine WBC (Auto) Urine Creatinine 01/22/20 01/22/20 01/22/20 08:09 08:22 09:58 WBC RBC Hgb Hct MCHC RDW MCV MCH Lymph % (Auto) [place] % (Auto) [place] # Eos # Lymph # (Auto) [place] # (Auto) Eos # (Auto) Seg Neutrophils % Seg Neuts % (Manual) Baso # (Auto) Lymphocytes % (Manual) Monocytes % (Manual) Eosinophils % (Manual) Basophils % (Manual) Seg Neutrophils # Seg Neutrophils # Man Lymphocytes # (Manual) Monocytes # (Manual) Eosinophils # (Manual) Nucleated RBC % Basophils # (Manual) PT 16.9 H INR 1.34 H APTT Heparin Anti-Xa Level ABG pH POC ABG pO2 ABG pO2 ABG HCO3 ABG O2 Saturation ABG Base Excess POC ABG pCO2 ABG Hemoglobin ABG Oxyhemoglobin ABG Sodium ABG Chloride ABG Glucose Oxyhemoglobin Sodium Potassium Chloride 97.8 L Carbon Dioxide BUN 29 H Creatinine Glucose 128 H POC Glucose 131 H Lactic Acid Calcium Phosphorus Magnesium AST ALT Lactate Dehydrogenase Total Bilirubin Direct Bilirubin CK-MB (CK-2) C-Reactive Protein NT-Pro-B Natriuret Pep Total Protein Albumin Arterial Blood Glucose Urine WBC (Auto) Urine Creatinine 01/22/20 01/22/20 01/22/20 12:44 16:13 18:18 WBC RBC Hgb Hct MCHC RDW MCV MCH Lymph % (Auto) [place] % (Auto) [place] # Eos # Lymph # (Auto) [place] # (Auto) Eos # (Auto) Seg Neutrophils % Seg Neuts % (Manual) Baso # (Auto) Lymphocytes % (Manual) Monocytes % (Manual) Eosinophils % (Manual) Basophils % (Manual) Seg Neutrophils # Seg Neutrophils # Man Lymphocytes # (Manual) Monocytes # (Manual) Eosinophils # (Manual) Nucleated RBC % Basophils # (Manual) PT INR APTT Heparin Anti-Xa Level ABG pH POC ABG pO2 ABG pO2 ABG HCO3 ABG O2 Saturation ABG Base Excess POC ABG pCO2 ABG Hemoglobin ABG Oxyhemoglobin ABG Sodium ABG Chloride ABG Glucose Oxyhemoglobin Sodium Potassium Chloride Carbon Dioxide BUN Creatinine Glucose POC Glucose 156 H 133 H 155 H Lactic Acid Calcium Phosphorus Magnesium AST ALT Lactate Dehydrogenase Total Bilirubin Direct Bilirubin CK-MB (CK-2) C-Reactive Protein NT-Pro-B Natriuret Pep Total Protein Albumin Arterial Blood Glucose Urine WBC (Auto) Urine Creatinine 01/22/20 01/23/20 01/23/20 23:22 05:37 12:59 WBC RBC Hgb Hct MCHC RDW MCV MCH Lymph % (Auto) [place] % (Auto) [place] # Eos # Lymph # (Auto) [place] # (Auto) Eos # (Auto) Seg Neutrophils % Seg Neuts % (Manual) Baso # (Auto) Lymphocytes % (Manual) Monocytes % (Manual) Eosinophils % (Manual) Basophils % (Manual) Seg Neutrophils # Seg Neutrophils # Man Lymphocytes # (Manual) Monocytes # (Manual) Eosinophils # (Manual) Nucleated RBC % Basophils # (Manual) PT INR APTT Heparin Anti-Xa Level ABG pH POC ABG pO2 ABG pO2 ABG HCO3 ABG O2 Saturation ABG Base Excess POC ABG pCO2 ABG Hemoglobin ABG Oxyhemoglobin ABG Sodium ABG Chloride ABG Glucose Oxyhemoglobin Sodium Potassium Chloride Carbon Dioxide BUN Creatinine Glucose POC Glucose 148 H 163 H 175 H Lactic Acid Calcium Phosphorus Magnesium AST ALT Lactate Dehydrogenase Total Bilirubin Direct Bilirubin CK-MB (CK-2) C-Reactive Protein NT-Pro-B Natriuret Pep Total Protein Albumin Arterial Blood Glucose Urine WBC (Auto) Urine Creatinine 01/23/20 01/23/20 01/24/20 17:28 23:56 04:30 WBC RBC 3.46 L Hgb 8.8 L Hct 27.8 L MCHC RDW 18.2 H MCV 81 L MCH 25 L Lymph % (Auto) [place] % (Auto) 7.8 H [place] # Eos # Lymph # (Auto) [place] # (Auto) Eos # (Auto) Seg Neutrophils % Seg Neuts % (Manual) Baso # (Auto) Lymphocytes % (Manual) Monocytes % (Manual) Eosinophils % (Manual) Basophils % (Manual) Seg Neutrophils # Seg Neutrophils # Man Lymphocytes # (Manual) Monocytes # (Manual) Eosinophils # (Manual) Nucleated RBC % Basophils # (Manual) PT INR APTT Heparin Anti-Xa Level ABG pH POC ABG pO2 ABG pO2 ABG HCO3 ABG O2 Saturation ABG Base Excess POC ABG pCO2 ABG Hemoglobin ABG Oxyhemoglobin ABG Sodium ABG Chloride ABG Glucose Oxyhemoglobin Sodium Potassium Chloride Carbon Dioxide BUN Creatinine Glucose POC Glucose 165 H 177 H Lactic Acid Calcium Phosphorus Magnesium AST ALT Lactate Dehydrogenase Total Bilirubin Direct Bilirubin CK-MB (CK-2) C-Reactive Protein NT-Pro-B Natriuret Pep Total Protein Albumin Arterial Blood Glucose Urine WBC (Auto) Urine Creatinine 01/24/20 01/24/20 01/24/20 04:30 07:18 12:06 WBC RBC Hgb Hct MCHC RDW MCV MCH Lymph % (Auto) [place] % (Auto) [place] # Eos # Lymph # (Auto) [place] # (Auto) Eos # (Auto) Seg Neutrophils % Seg Neuts % (Manual) Baso # (Auto) Lymphocytes % (Manual) Monocytes % (Manual) Eosinophils % (Manual) Basophils % (Manual) Seg Neutrophils # Seg Neutrophils # Man Lymphocytes # (Manual) Monocytes # (Manual) Eosinophils # (Manual) Nucleated RBC % Basophils # (Manual) PT INR APTT Heparin Anti-Xa Level ABG pH POC ABG pO2 ABG pO2 ABG HCO3 ABG O2 Saturation ABG Base Excess POC ABG pCO2 ABG Hemoglobin ABG Oxyhemoglobin ABG Sodium ABG Chloride ABG Glucose Oxyhemoglobin Sodium Potassium Chloride 97.9 L Carbon Dioxide BUN 31 H Creatinine Glucose 146 H POC Glucose 151 H 133 H Lactic Acid Calcium Phosphorus Magnesium AST ALT Lactate Dehydrogenase Total Bilirubin Direct Bilirubin CK-MB (CK-2) C-Reactive Protein NT-Pro-B Natriuret Pep Total Protein Albumin Arterial Blood Glucose Urine WBC (Auto) Urine Creatinine 01/24/20 01/25/20 01/25/20 17:36 00:08 04:25 WBC RBC 3.50 L Hgb 8.7 L Hct 27.9 L MCHC 31 L RDW 18.2 H MCV 80 L MCH 25 L Lymph % (Auto) [place] % (Auto) 8.5 H [place] # Eos # Lymph # (Auto) [place] # (Auto) Eos # (Auto) Seg Neutrophils % Seg Neuts % (Manual) Baso # (Auto) Lymphocytes % (Manual) Monocytes % (Manual) Eosinophils % (Manual) Basophils % (Manual) Seg Neutrophils # Seg Neutrophils # Man Lymphocytes # (Manual) Monocytes # (Manual) Eosinophils # (Manual) Nucleated RBC % Basophils # (Manual) PT INR APTT Heparin Anti-Xa Level ABG pH POC ABG pO2 ABG pO2 ABG HCO3 ABG O2 Saturation ABG Base Excess POC ABG pCO2 ABG Hemoglobin ABG Oxyhemoglobin ABG Sodium ABG Chloride ABG Glucose Oxyhemoglobin Sodium Potassium Chloride Carbon Dioxide BUN Creatinine Glucose POC Glucose 133 H 129 H Lactic Acid Calcium Phosphorus Magnesium AST ALT Lactate Dehydrogenase Total Bilirubin Direct Bilirubin CK-MB (CK-2) C-Reactive Protein NT-Pro-B Natriuret Pep Total Protein Albumin Arterial Blood Glucose Urine WBC (Auto) Urine Creatinine 01/25/20 01/25/20 01/25/20 04:25 05:38 11:52 WBC RBC Hgb Hct MCHC RDW MCV MCH Lymph % (Auto) [place] % (Auto) [place] # Eos # Lymph # (Auto) [place] # (Auto) Eos # (Auto) Seg Neutrophils % Seg Neuts % (Manual) Baso # (Auto) Lymphocytes % (Manual) Monocytes % (Manual) Eosinophils % (Manual) Basophils % (Manual) Seg Neutrophils # Seg Neutrophils # Man Lymphocytes # (Manual) Monocytes # (Manual) Eosinophils # (Manual) Nucleated RBC % Basophils # (Manual) PT INR APTT Heparin Anti-Xa Level ABG pH POC ABG pO2 ABG pO2 ABG HCO3 ABG O2 Saturation ABG Base Excess POC ABG pCO2 ABG Hemoglobin ABG Oxyhemoglobin ABG Sodium ABG Chloride ABG Glucose Oxyhemoglobin Sodium Potassium Chloride Carbon Dioxide BUN 30 H Creatinine Glucose 134 H POC Glucose 129 H 134 H Lactic Acid Calcium Phosphorus Magnesium AST ALT Lactate Dehydrogenase Total Bilirubin Direct Bilirubin CK-MB (CK-2) C-Reactive Protein NT-Pro-B Natriuret Pep Total Protein Albumin Arterial Blood Glucose Urine WBC (Auto) Urine Creatinine 01/25/20 01/25/20 01/26/20 17:13 21:02 00:59 WBC RBC Hgb Hct MCHC RDW MCV MCH Lymph % (Auto) [place] % (Auto) [place] # Eos # Lymph # (Auto) [place] # (Auto) Eos # (Auto) Seg Neutrophils % Seg Neuts % (Manual) Baso # (Auto) Lymphocytes % (Manual) Monocytes % (Manual) Eosinophils % (Manual) Basophils % (Manual) Seg Neutrophils # Seg Neutrophils # Man Lymphocytes # (Manual) Monocytes # (Manual) Eosinophils # (Manual) Nucleated RBC % Basophils # (Manual) PT INR APTT Heparin Anti-Xa Level ABG pH POC ABG pO2 ABG pO2 57.5 L ABG HCO3 31.7 H ABG O2 Saturation 90.3 L ABG Base Excess 6.6 H POC ABG pCO2 ABG Hemoglobin 13.0 L ABG Oxyhemoglobin ABG Sodium ABG Chloride ABG Glucose Oxyhemoglobin 87.5 L Sodium Potassium Chloride Carbon Dioxide BUN Creatinine Glucose POC Glucose 124 H 196 H Lactic Acid Calcium Phosphorus Magnesium AST ALT Lactate Dehydrogenase Total Bilirubin Direct Bilirubin CK-MB (CK-2) C-Reactive Protein NT-Pro-B Natriuret Pep Total Protein Albumin Arterial Blood Glucose Urine WBC (Auto) Urine Creatinine 01/26/20 01/26/20 01/26/20 03:20 05:46 12:46 WBC RBC Hgb 9.2 L Hct 29.4 L MCHC RDW MCV MCH Lymph % (Auto) [place] % (Auto) [place] # Eos # Lymph # (Auto) [place] # (Auto) Eos # (Auto) Seg Neutrophils % Seg Neuts % (Manual) Baso # (Auto) Lymphocytes % (Manual) Monocytes % (Manual) Eosinophils % (Manual) Basophils % (Manual) Seg Neutrophils # Seg Neutrophils # Man Lymphocytes # (Manual) Monocytes # (Manual) Eosinophils # (Manual) Nucleated RBC % Basophils # (Manual) PT INR APTT Heparin Anti-Xa Level ABG pH POC ABG pO2 ABG pO2 ABG HCO3 ABG O2 Saturation ABG Base Excess POC ABG pCO2 ABG Hemoglobin ABG Oxyhemoglobin ABG Sodium ABG Chloride ABG Glucose Oxyhemoglobin Sodium Potassium Chloride Carbon Dioxide BUN Creatinine Glucose POC Glucose 141 H 122 H Lactic Acid Calcium Phosphorus Magnesium AST ALT Lactate Dehydrogenase Total Bilirubin Direct Bilirubin CK-MB (CK-2) C-Reactive Protein NT-Pro-B Natriuret Pep Total Protein Albumin Arterial Blood Glucose Urine WBC (Auto) Urine Creatinine 01/26/20 01/26/20 01/27/20 18:03 23:55 04:47 WBC RBC Hgb Hct MCHC RDW MCV MCH Lymph % (Auto) [place] % (Auto) [place] # Eos # Lymph # (Auto) [place] # (Auto) Eos # (Auto) Seg Neutrophils % Seg Neuts % (Manual) Baso # (Auto) Lymphocytes % (Manual) Monocytes % (Manual) Eosinophils % (Manual) Basophils % (Manual) Seg Neutrophils # Seg Neutrophils # Man Lymphocytes # (Manual) Monocytes # (Manual) Eosinophils # (Manual) Nucleated RBC % Basophils # (Manual) PT INR APTT Heparin Anti-Xa Level ABG pH POC ABG pO2 ABG pO2 ABG HCO3 ABG O2 Saturation ABG Base Excess POC ABG pCO2 ABG Hemoglobin ABG Oxyhemoglobin ABG Sodium ABG Chloride ABG Glucose Oxyhemoglobin Sodium Potassium Chloride Carbon Dioxide BUN 30 H Creatinine 0.7 L Glucose 135 H POC Glucose 142 H 159 H Lactic Acid Calcium Phosphorus Magnesium AST ALT Lactate Dehydrogenase Total Bilirubin Direct Bilirubin CK-MB (CK-2) C-Reactive Protein NT-Pro-B Natriuret Pep Total Protein Albumin Arterial Blood Glucose Urine WBC (Auto) Urine Creatinine 01/27/20 01/27/20 01/27/20 05:43 12:06 17:16 WBC RBC Hgb Hct MCHC RDW MCV MCH Lymph % (Auto) [place] % (Auto) [place] # Eos # Lymph # (Auto) [place] # (Auto) Eos # (Auto) Seg Neutrophils % Seg Neuts % (Manual) Baso # (Auto) Lymphocytes % (Manual) Monocytes % (Manual) Eosinophils % (Manual) Basophils % (Manual) Seg Neutrophils # Seg Neutrophils # Man Lymphocytes # (Manual) Monocytes # (Manual) Eosinophils # (Manual) Nucleated RBC % Basophils # (Manual) PT INR APTT Heparin Anti-Xa Level ABG pH POC ABG pO2 ABG pO2 ABG HCO3 ABG O2 Saturation ABG Base Excess POC ABG pCO2 ABG Hemoglobin ABG Oxyhemoglobin ABG Sodium ABG Chloride ABG Glucose Oxyhemoglobin Sodium Potassium Chloride Carbon Dioxide BUN Creatinine Glucose POC Glucose 143 H 142 H 128 H Lactic Acid Calcium Phosphorus Magnesium AST ALT Lactate Dehydrogenase Total Bilirubin Direct Bilirubin CK-MB (CK-2) C-Reactive Protein NT-Pro-B Natriuret Pep Total Protein Albumin Arterial Blood Glucose Urine WBC (Auto) Urine Creatinine 01/27/20 01/28/20 01/28/20 23:55 04:37 05:55 WBC RBC Hgb 9.4 L Hct 29.9 L MCHC RDW MCV MCH Lymph % (Auto) [place] % (Auto) [place] # Eos # Lymph # (Auto) [place] # (Auto) Eos # (Auto) Seg Neutrophils % Seg Neuts % (Manual) Baso # (Auto) Lymphocytes % (Manual) Monocytes % (Manual) Eosinophils % (Manual) Basophils % (Manual) Seg Neutrophils # Seg Neutrophils # Man Lymphocytes # (Manual) Monocytes # (Manual) Eosinophils # (Manual) Nucleated RBC % Basophils # (Manual) PT INR APTT Heparin Anti-Xa Level ABG pH POC ABG pO2 ABG pO2 ABG HCO3 ABG O2 Saturation ABG Base Excess POC ABG pCO2 ABG Hemoglobin ABG Oxyhemoglobin ABG Sodium ABG Chloride ABG Glucose Oxyhemoglobin Sodium Potassium Chloride Carbon Dioxide BUN Creatinine Glucose POC Glucose 166 H 169 H Lactic Acid Calcium Phosphorus Magnesium AST ALT Lactate Dehydrogenase Total Bilirubin Direct Bilirubin CK-MB (CK-2) C-Reactive Protein NT-Pro-B Natriuret Pep Total Protein Albumin Arterial Blood Glucose Urine WBC (Auto) Urine Creatinine 01/28/20 01/28/20 01/28/20 11:58 17:26 23:46 WBC RBC Hgb Hct MCHC RDW MCV MCH Lymph % (Auto) [place] % (Auto) [place] # Eos # Lymph # (Auto) [place] # (Auto) Eos # (Auto) Seg Neutrophils % Seg Neuts % (Manual) Baso # (Auto) Lymphocytes % (Manual) Monocytes % (Manual) Eosinophils % (Manual) Basophils % (Manual) Seg Neutrophils # Seg Neutrophils # Man Lymphocytes # (Manual) Monocytes # (Manual) Eosinophils # (Manual) Nucleated RBC % Basophils # (Manual) PT INR APTT Heparin Anti-Xa Level ABG pH POC ABG pO2 ABG pO2 ABG HCO3 ABG O2 Saturation ABG Base Excess POC ABG pCO2 ABG Hemoglobin ABG Oxyhemoglobin ABG Sodium ABG Chloride ABG Glucose Oxyhemoglobin Sodium Potassium Chloride Carbon Dioxide BUN Creatinine Glucose POC Glucose 130 H 126 H 150 H Lactic Acid Calcium Phosphorus Magnesium AST ALT Lactate Dehydrogenase Total Bilirubin Direct Bilirubin CK-MB (CK-2) C-Reactive Protein NT-Pro-B Natriuret Pep Total Protein Albumin Arterial Blood Glucose Urine WBC (Auto) Urine Creatinine 01/29/20 01/29/20 01/29/20 04:55 06:00 12:28 WBC RBC Hgb Hct MCHC RDW MCV MCH Lymph % (Auto) [place] % (Auto) [place] # Eos # Lymph # (Auto) [place] # (Auto) Eos # (Auto) Seg Neutrophils % Seg Neuts % (Manual) Baso # (Auto) Lymphocytes % (Manual) Monocytes % (Manual) Eosinophils % (Manual) Basophils % (Manual) Seg Neutrophils # Seg Neutrophils # Man Lymphocytes # (Manual) Monocytes # (Manual) Eosinophils # (Manual) Nucleated RBC % Basophils # (Manual) PT INR APTT Heparin Anti-Xa Level ABG pH POC ABG pO2 ABG pO2 ABG HCO3 ABG O2 Saturation ABG Base Excess POC ABG pCO2 ABG Hemoglobin ABG Oxyhemoglobin ABG Sodium ABG Chloride ABG Glucose Oxyhemoglobin Sodium Potassium Chloride Carbon Dioxide 34 H BUN Creatinine 0.6 L Glucose 152 H POC Glucose 157 H 156 H Lactic Acid Calcium Phosphorus Magnesium AST ALT Lactate Dehydrogenase Total Bilirubin Direct Bilirubin CK-MB (CK-2) C-Reactive Protein NT-Pro-B Natriuret Pep Total Protein Albumin Arterial Blood Glucose Urine WBC (Auto) Urine Creatinine 01/29/20 01/30/20 01/30/20 19:06 00:29 05:39 WBC RBC Hgb Hct MCHC RDW MCV MCH Lymph % (Auto) [place] % (Auto) [place] # Eos # Lymph # (Auto) [place] # (Auto) Eos # (Auto) Seg Neutrophils % Seg Neuts % (Manual) Baso # (Auto) Lymphocytes % (Manual) Monocytes % (Manual) Eosinophils % (Manual) Basophils % (Manual) Seg Neutrophils # Seg Neutrophils # Man Lymphocytes # (Manual) Monocytes # (Manual) Eosinophils # (Manual) Nucleated RBC % Basophils # (Manual) PT INR APTT Heparin Anti-Xa Level ABG pH POC ABG pO2 ABG pO2 ABG HCO3 ABG O2 Saturation ABG Base Excess POC ABG pCO2 ABG Hemoglobin ABG Oxyhemoglobin ABG Sodium ABG Chloride ABG Glucose Oxyhemoglobin Sodium Potassium Chloride Carbon Dioxide BUN Creatinine Glucose POC Glucose 152 H 132 H 159 H Lactic Acid Calcium Phosphorus Magnesium AST ALT Lactate Dehydrogenase Total Bilirubin Direct Bilirubin CK-MB (CK-2) C-Reactive Protein NT-Pro-B Natriuret Pep Total Protein Albumin Arterial Blood Glucose Urine WBC (Auto) Urine Creatinine 01/30/20 01/30/20 01/30/20 12:27 17:42 23:28 WBC RBC Hgb Hct MCHC RDW MCV MCH Lymph % (Auto) [place] % (Auto) [place] # Eos # Lymph # (Auto) [place] # (Auto) Eos # (Auto) Seg Neutrophils % Seg Neuts % (Manual) Baso # (Auto) Lymphocytes % (Manual) Monocytes % (Manual) Eosinophils % (Manual) Basophils % (Manual) Seg Neutrophils # Seg Neutrophils # Man Lymphocytes # (Manual) Monocytes # (Manual) Eosinophils # (Manual) Nucleated RBC % Basophils # (Manual) PT INR APTT Heparin Anti-Xa Level ABG pH POC ABG pO2 ABG pO2 ABG HCO3 ABG O2 Saturation ABG Base Excess POC ABG pCO2 ABG Hemoglobin ABG Oxyhemoglobin ABG Sodium ABG Chloride ABG Glucose Oxyhemoglobin Sodium Potassium Chloride Carbon Dioxide BUN Creatinine Glucose POC Glucose 151 H 144 H 164 H Lactic Acid Calcium Phosphorus Magnesium AST ALT Lactate Dehydrogenase Total Bilirubin Direct Bilirubin CK-MB (CK-2) C-Reactive Protein NT-Pro-B Natriuret Pep Total Protein Albumin Arterial Blood Glucose Urine WBC (Auto) Urine Creatinine 01/31/20 01/31/20 01/31/20 05:51 11:51 18:06 WBC RBC Hgb Hct MCHC RDW MCV MCH Lymph % (Auto) [place] % (Auto) [place] # Eos # Lymph # (Auto) [place] # (Auto) Eos # (Auto) Seg Neutrophils % Seg Neuts % (Manual) Baso # (Auto) Lymphocytes % (Manual) Monocytes % (Manual) Eosinophils % (Manual) Basophils % (Manual) Seg Neutrophils # Seg Neutrophils # Man Lymphocytes # (Manual) Monocytes # (Manual) Eosinophils # (Manual) Nucleated RBC % Basophils # (Manual) PT INR APTT Heparin Anti-Xa Level ABG pH POC ABG pO2 ABG pO2 ABG HCO3 ABG O2 Saturation ABG Base Excess POC ABG pCO2 ABG Hemoglobin ABG Oxyhemoglobin ABG Sodium ABG Chloride ABG Glucose Oxyhemoglobin Sodium Potassium Chloride Carbon Dioxide BUN Creatinine Glucose POC Glucose 131 H 167 H 210 H Lactic Acid Calcium Phosphorus Magnesium AST ALT Lactate Dehydrogenase Total Bilirubin Direct Bilirubin CK-MB (CK-2) C-Reactive Protein NT-Pro-B Natriuret Pep Total Protein Albumin Arterial Blood Glucose Urine WBC (Auto) Urine Creatinine 01/31/20 01/31/20 02/01/20 19:24 Unknown 00:34 WBC RBC Hgb Hct MCHC RDW MCV MCH Lymph % (Auto) [place] % (Auto) [place] # Eos # Lymph # (Auto) [place] # (Auto) Eos # (Auto) Seg Neutrophils % Seg Neuts % (Manual) Baso # (Auto) Lymphocytes % (Manual) Monocytes % (Manual) Eosinophils % (Manual) Basophils % (Manual) Seg Neutrophils # Seg Neutrophils # Man Lymphocytes # (Manual) Monocytes # (Manual) Eosinophils # (Manual) Nucleated RBC % Basophils # (Manual) PT INR APTT Heparin Anti-Xa Level ABG pH POC ABG pO2 ABG pO2 ABG HCO3 ABG O2 Saturation ABG Base Excess POC ABG pCO2 ABG Hemoglobin ABG Oxyhemoglobin ABG Sodium ABG Chloride ABG Glucose Oxyhemoglobin Sodium Potassium Chloride 95.3 L Carbon Dioxide 33 H BUN 36 H Creatinine Glucose 187 H POC Glucose 116 H Lactic Acid Calcium Phosphorus Magnesium AST ALT Lactate Dehydrogenase Total Bilirubin Direct Bilirubin CK-MB (CK-2) C-Reactive Protein NT-Pro-B Natriuret Pep Total Protein Albumin Arterial Blood Glucose Urine WBC (Auto) Urine Creatinine 57.4 H 02/01/20 02/01/20 02/01/20 05:24 10:40 12:29 WBC RBC Hgb Hct MCHC RDW MCV MCH Lymph % (Auto) [place] % (Auto) [place] # Eos # Lymph # (Auto) [place] # (Auto) Eos # (Auto) Seg Neutrophils % Seg Neuts % (Manual) Baso # (Auto) Lymphocytes % (Manual) Monocytes % (Manual) Eosinophils % (Manual) Basophils % (Manual) Seg Neutrophils # Seg Neutrophils # Man Lymphocytes # (Manual) Monocytes # (Manual) Eosinophils # (Manual) Nucleated RBC % Basophils # (Manual) PT INR APTT Heparin Anti-Xa Level ABG pH POC ABG pO2 ABG pO2 ABG HCO3 ABG O2 Saturation ABG Base Excess POC ABG pCO2 ABG Hemoglobin ABG Oxyhemoglobin ABG Sodium ABG Chloride ABG Glucose Oxyhemoglobin Sodium Potassium Chloride Carbon Dioxide BUN Creatinine Glucose POC Glucose 142 H 165 H 151 H Lactic Acid Calcium Phosphorus Magnesium AST ALT Lactate Dehydrogenase Total Bilirubin Direct Bilirubin CK-MB (CK-2) C-Reactive Protein NT-Pro-B Natriuret Pep Total Protein Albumin Arterial Blood Glucose Urine WBC (Auto) Urine Creatinine 02/01/20 02/01/20 02/02/20 17:16 23:23 06:36 WBC RBC Hgb Hct MCHC RDW MCV MCH Lymph % (Auto) [place] % (Auto) [place] # Eos # Lymph # (Auto) [place] # (Auto) Eos # (Auto) Seg Neutrophils % Seg Neuts % (Manual) Baso # (Auto) Lymphocytes % (Manual) Monocytes % (Manual) Eosinophils % (Manual) Basophils % (Manual) Seg Neutrophils # Seg Neutrophils # Man Lymphocytes # (Manual) Monocytes # (Manual) Eosinophils # (Manual) Nucleated RBC % Basophils # (Manual) PT INR APTT Heparin Anti-Xa Level ABG pH POC ABG pO2 ABG pO2 ABG HCO3 ABG O2 Saturation ABG Base Excess POC ABG pCO2 ABG Hemoglobin ABG Oxyhemoglobin ABG Sodium ABG Chloride ABG Glucose Oxyhemoglobin Sodium Potassium Chloride Carbon Dioxide BUN Creatinine Glucose POC Glucose 137 H 145 H 181 H Lactic Acid Calcium Phosphorus Magnesium AST ALT Lactate Dehydrogenase Total Bilirubin Direct Bilirubin CK-MB (CK-2) C-Reactive Protein NT-Pro-B Natriuret Pep Total Protein Albumin Arterial Blood Glucose Urine WBC (Auto) Urine Creatinine 02/02/20 02/02/20 02/02/20 10:01 12:05 17:54 WBC RBC Hgb Hct MCHC RDW MCV MCH Lymph % (Auto) [place] % (Auto) [place] # Eos # Lymph # (Auto) [place] # (Auto) Eos # (Auto) Seg Neutrophils % Seg Neuts % (Manual) Baso # (Auto) Lymphocytes % (Manual) Monocytes % (Manual) Eosinophils % (Manual) Basophils % (Manual) Seg Neutrophils # Seg Neutrophils # Man Lymphocytes # (Manual) Monocytes # (Manual) Eosinophils # (Manual) Nucleated RBC % Basophils # (Manual) PT INR APTT Heparin Anti-Xa Level ABG pH POC ABG pO2 ABG pO2 ABG HCO3 ABG O2 Saturation ABG Base Excess POC ABG pCO2 ABG Hemoglobin ABG Oxyhemoglobin ABG Sodium ABG Chloride ABG Glucose Oxyhemoglobin Sodium Potassium Chloride 95.3 L Carbon Dioxide BUN 44 H Creatinine Glucose 234 H POC Glucose 184 H 127 H Lactic Acid Calcium Phosphorus Magnesium AST 363 H ALT 457 H Lactate Dehydrogenase Total Bilirubin Direct Bilirubin CK-MB (CK-2) C-Reactive Protein NT-Pro-B Natriuret Pep Total Protein Albumin 3.0 L Arterial Blood Glucose Urine WBC (Auto) Urine Creatinine 02/02/20 02/03/20 02/03/20 23:47 05:32 07:04 WBC 13.0 H RBC Hgb 9.5 L Hct 30.8 L MCHC 31 L RDW 19.6 H MCV 81 L MCH 25 L Lymph % (Auto) [place] % (Auto) 9.4 H [place] # Eos # Lymph # (Auto) [place] # (Auto) 1.2 H Eos # (Auto) Seg Neutrophils % 72.3 H Seg Neuts % (Manual) Baso # (Auto) Lymphocytes % (Manual) Monocytes % (Manual) Eosinophils % (Manual) Basophils % (Manual) Seg Neutrophils # 9.4 H Seg Neutrophils # Man Lymphocytes # (Manual) Monocytes # (Manual) Eosinophils # (Manual) Nucleated RBC % Basophils # (Manual) PT INR APTT Heparin Anti-Xa Level ABG pH POC ABG pO2 ABG pO2 ABG HCO3 ABG O2 Saturation ABG Base Excess POC ABG pCO2 ABG Hemoglobin ABG Oxyhemoglobin ABG Sodium ABG Chloride ABG Glucose Oxyhemoglobin Sodium Potassium Chloride Carbon Dioxide BUN Creatinine Glucose POC Glucose 124 H 129 H Lactic Acid Calcium Phosphorus Magnesium AST ALT Lactate Dehydrogenase Total Bilirubin Direct Bilirubin CK-MB (CK-2) C-Reactive Protein NT-Pro-B Natriuret Pep Total Protein Albumin Arterial Blood Glucose Urine WBC (Auto) Urine Creatinine 02/03/20 02/03/20 02/03/20 07:04 11:32 12:49 WBC RBC Hgb Hct MCHC RDW MCV MCH Lymph % (Auto) [place] % (Auto) [place] # Eos # Lymph # (Auto) [place] # (Auto) Eos # (Auto) Seg Neutrophils % Seg Neuts % (Manual) Baso # (Auto) Lymphocytes % (Manual) Monocytes % (Manual) Eosinophils % (Manual) Basophils % (Manual) Seg Neutrophils # Seg Neutrophils # Man Lymphocytes # (Manual) Monocytes # (Manual) Eosinophils # (Manual) Nucleated RBC % Basophils # (Manual) PT INR APTT Heparin Anti-Xa Level ABG pH POC ABG pO2 ABG pO2 ABG HCO3 ABG O2 Saturation ABG Base Excess POC ABG pCO2 ABG Hemoglobin ABG Oxyhemoglobin ABG Sodium ABG Chloride ABG Glucose Oxyhemoglobin Sodium Potassium Chloride 97.9 L Carbon Dioxide 33 H BUN 39 H Creatinine Glucose 119 H POC Glucose 138 H Lactic Acid Calcium Phosphorus Magnesium 2.60 H AST ALT Lactate Dehydrogenase Total Bilirubin Direct Bilirubin CK-MB (CK-2) C-Reactive Protein NT-Pro-B Natriuret Pep Total Protein Albumin Arterial Blood Glucose Urine WBC (Auto) Urine Creatinine 02/03/20 02/04/20 02/04/20 18:28 16:24 16:24 WBC RBC 3.38 L Hgb 8.6 L Hct 26.9 L MCHC RDW 19.5 H MCV 80 L MCH 26 L Lymph % (Auto) [place] % (Auto) [place] # Eos # Lymph # (Auto) [place] # (Auto) Eos # (Auto) Seg Neutrophils % Seg Neuts % (Manual) Baso # (Auto) Lymphocytes % (Manual) Monocytes % (Manual) Eosinophils % (Manual) Basophils % (Manual) Seg Neutrophils # Seg Neutrophils # Man Lymphocytes # (Manual) Monocytes # (Manual) Eosinophils # (Manual) Nucleated RBC % Basophils # (Manual) PT INR APTT Heparin Anti-Xa Level ABG pH POC ABG pO2 ABG pO2 ABG HCO3 ABG O2 Saturation ABG Base Excess POC ABG pCO2 ABG Hemoglobin ABG Oxyhemoglobin ABG Sodium ABG Chloride ABG Glucose Oxyhemoglobin Sodium Potassium 3.4 L Chloride Carbon Dioxide 31 H BUN 37 H Creatinine Glucose 70 L POC Glucose 118 H Lactic Acid Calcium Phosphorus Magnesium AST 169 H ALT 394 H Lactate Dehydrogenase Total Bilirubin 1.50 H Direct Bilirubin CK-MB (CK-2) C-Reactive Protein NT-Pro-B Natriuret Pep Total Protein Albumin 2.9 L Arterial Blood Glucose Urine WBC (Auto) Urine Creatinine 02/05/20 02/05/20 02/05/20 00:41 06:37 17:14 WBC RBC Hgb Hct MCHC RDW MCV MCH Lymph % (Auto) [place] % (Auto) [place] # Eos # Lymph # (Auto) [place] # (Auto) Eos # (Auto) Seg Neutrophils % Seg Neuts % (Manual) Baso # (Auto) Lymphocytes % (Manual) Monocytes % (Manual) Eosinophils % (Manual) Basophils % (Manual) Seg Neutrophils # Seg Neutrophils # Man Lymphocytes # (Manual) Monocytes # (Manual) Eosinophils # (Manual) Nucleated RBC % Basophils # (Manual) PT INR APTT Heparin Anti-Xa Level ABG pH POC ABG pO2 ABG pO2 ABG HCO3 ABG O2 Saturation ABG Base Excess POC ABG pCO2 ABG Hemoglobin ABG Oxyhemoglobin ABG Sodium ABG Chloride ABG Glucose Oxyhemoglobin Sodium Potassium 3.1 L Chloride Carbon Dioxide 35 H BUN 32 H Creatinine 0.7 L Glucose POC Glucose 69 L 127 H Lactic Acid Calcium Phosphorus Magnesium AST 134 H ALT 352 H Lactate Dehydrogenase Total Bilirubin 1.60 H Direct Bilirubin CK-MB (CK-2) C-Reactive Protein NT-Pro-B Natriuret Pep Total Protein Albumin 2.9 L Arterial Blood Glucose Urine WBC (Auto) Urine Creatinine 02/05/20 02/06/20 02/06/20 23:43 05:32 08:01 WBC RBC Hgb Hct MCHC RDW MCV MCH Lymph % (Auto) [place] % (Auto) [place] # Eos # Lymph # (Auto) [place] # (Auto) Eos # (Auto) Seg Neutrophils % Seg Neuts % (Manual) Baso # (Auto) Lymphocytes % (Manual) Monocytes % (Manual) Eosinophils % (Manual) Basophils % (Manual) Seg Neutrophils # Seg Neutrophils # Man Lymphocytes # (Manual) Monocytes # (Manual) Eosinophils # (Manual) Nucleated RBC % Basophils # (Manual) PT INR APTT Heparin Anti-Xa Level ABG pH POC ABG pO2 ABG pO2 ABG HCO3 ABG O2 Saturation ABG Base Excess POC ABG pCO2 ABG Hemoglobin ABG Oxyhemoglobin ABG Sodium ABG Chloride ABG Glucose Oxyhemoglobin Sodium Potassium Chloride Carbon Dioxide BUN 40 H Creatinine Glucose 132 H POC Glucose 129 H 131 H Lactic Acid Calcium Phosphorus Magnesium AST ALT Lactate Dehydrogenase Total Bilirubin Direct Bilirubin CK-MB (CK-2) C-Reactive Protein NT-Pro-B Natriuret Pep Total Protein Albumin Arterial Blood Glucose Urine WBC (Auto) Urine Creatinine 02/06/20 02/06/20 02/06/20 11:51 16:28 17:32 WBC RBC Hgb Hct MCHC RDW MCV MCH Lymph % (Auto) [place] % (Auto) [place] # Eos # Lymph # (Auto) [place] # (Auto) Eos # (Auto) Seg Neutrophils % Seg Neuts % (Manual) Baso # (Auto) Lymphocytes % (Manual) Monocytes % (Manual) Eosinophils % (Manual) Basophils % (Manual) Seg Neutrophils # Seg Neutrophils # Man Lymphocytes # (Manual) Monocytes # (Manual) Eosinophils # (Manual) Nucleated RBC % Basophils # (Manual) PT INR APTT Heparin Anti-Xa Level ABG pH POC ABG pO2 ABG pO2 ABG HCO3 ABG O2 Saturation ABG Base Excess POC ABG pCO2 ABG Hemoglobin ABG Oxyhemoglobin ABG Sodium ABG Chloride ABG Glucose Oxyhemoglobin Sodium Potassium Chloride Carbon Dioxide BUN Creatinine Glucose POC Glucose 167 H 129 H Lactic Acid Calcium Phosphorus Magnesium AST 824 H ALT 948 H Lactate Dehydrogenase Total Bilirubin 1.70 H Direct Bilirubin 1.2 H CK-MB (CK-2) C-Reactive Protein NT-Pro-B Natriuret Pep Total Protein Albumin 2.9 L Arterial Blood Glucose Urine WBC (Auto) Urine Creatinine 02/07/20 02/07/20 02/07/20 00:11 04:57 04:57 WBC RBC Hgb 9.2 L Hct 29.7 L MCHC 31 L RDW 20.2 H MCV 80 L MCH 25 L Lymph % (Auto) [place] % (Auto) [place] # Eos # Lymph # (Auto) [place] # (Auto) Eos # (Auto) Seg Neutrophils % Seg Neuts % (Manual) Baso # (Auto) Lymphocytes % (Manual) Monocytes % (Manual) Eosinophils % (Manual) Basophils % (Manual) Seg Neutrophils # Seg Neutrophils # Man Lymphocytes # (Manual) Monocytes # (Manual) Eosinophils # (Manual) Nucleated RBC % Basophils # (Manual) PT INR APTT Heparin Anti-Xa Level ABG pH POC ABG pO2 ABG pO2 ABG HCO3 ABG O2 Saturation ABG Base Excess POC ABG pCO2 ABG Hemoglobin ABG Oxyhemoglobin ABG Sodium ABG Chloride ABG Glucose Oxyhemoglobin Sodium Potassium 3.4 L D Chloride Carbon Dioxide 32 H BUN 39 H Creatinine Glucose 106 H POC Glucose 121 H Lactic Acid Calcium Phosphorus Magnesium AST ALT Lactate Dehydrogenase Total Bilirubin Direct Bilirubin CK-MB (CK-2) C-Reactive Protein NT-Pro-B Natriuret Pep Total Protein Albumin Arterial Blood Glucose Urine WBC (Auto) Urine Creatinine 02/07/20 02/07/20 02/07/20 15:03 15:03 17:11 WBC RBC Hgb Hct MCHC RDW MCV MCH Lymph % (Auto) [place] % (Auto) [place] # Eos # Lymph # (Auto) [place] # (Auto) Eos # (Auto) Seg Neutrophils % Seg Neuts % (Manual) Baso # (Auto) Lymphocytes % (Manual) Monocytes % (Manual) Eosinophils % (Manual) Basophils % (Manual) Seg Neutrophils # Seg Neutrophils # Man Lymphocytes # (Manual) Monocytes # (Manual) Eosinophils # (Manual) Nucleated RBC % Basophils # (Manual) PT 27.0 H INR 2.46 H APTT Heparin Anti-Xa Level ABG pH POC ABG pO2 ABG pO2 ABG HCO3 ABG O2 Saturation ABG Base Excess POC ABG pCO2 ABG Hemoglobin ABG Oxyhemoglobin ABG Sodium ABG Chloride ABG Glucose Oxyhemoglobin Sodium Potassium Chloride Carbon Dioxide BUN Creatinine Glucose POC Glucose 109 H Lactic Acid Calcium Phosphorus Magnesium AST 424 H ALT 796 H Lactate Dehydrogenase Total Bilirubin 1.60 H Direct Bilirubin 1.2 H CK-MB (CK-2) C-Reactive Protein NT-Pro-B Natriuret Pep Total Protein Albumin 2.9 L Arterial Blood Glucose Urine WBC (Auto) Urine Creatinine 02/08/20 02/08/20 02/08/20 12:14 17:44 19:00 WBC RBC Hgb Hct MCHC RDW MCV MCH Lymph % (Auto) [place] % (Auto) [place] # Eos # Lymph # (Auto) [place] # (Auto) Eos # (Auto) Seg Neutrophils % Seg Neuts % (Manual) Baso # (Auto) Lymphocytes % (Manual) Monocytes % (Manual) Eosinophils % (Manual) Basophils % (Manual) Seg Neutrophils # Seg Neutrophils # Man Lymphocytes # (Manual) Monocytes # (Manual) Eosinophils # (Manual) Nucleated RBC % Basophils # (Manual) PT INR APTT Heparin Anti-Xa Level ABG pH POC ABG pO2 ABG pO2 ABG HCO3 ABG O2 Saturation ABG Base Excess POC ABG pCO2 ABG Hemoglobin ABG Oxyhemoglobin ABG Sodium ABG Chloride ABG Glucose Oxyhemoglobin Sodium Potassium Chloride Carbon Dioxide BUN Creatinine Glucose POC Glucose 111 H 107 H Lactic Acid Calcium Phosphorus Magnesium AST 309 H ALT 650 H Lactate Dehydrogenase Total Bilirubin 1.30 H Direct Bilirubin 0.9 H CK-MB (CK-2) C-Reactive Protein NT-Pro-B Natriuret Pep Total Protein 6.2 L Albumin 2.7 L Arterial Blood Glucose Urine WBC (Auto) Urine Creatinine 02/09/20 02/09/20 02/09/20 05:41 12:28 18:07 WBC RBC Hgb Hct MCHC RDW MCV MCH Lymph % (Auto) [place] % (Auto) [place] # Eos # Lymph # (Auto) [place] # (Auto) Eos # (Auto) Seg Neutrophils % Seg Neuts % (Manual) Baso # (Auto) Lymphocytes % (Manual) Monocytes % (Manual) Eosinophils % (Manual) Basophils % (Manual) Seg Neutrophils # Seg Neutrophils # Man Lymphocytes # (Manual) Monocytes # (Manual) Eosinophils # (Manual) Nucleated RBC % Basophils # (Manual) PT INR APTT Heparin Anti-Xa Level ABG pH POC ABG pO2 ABG pO2 ABG HCO3 ABG O2 Saturation ABG Base Excess POC ABG pCO2 ABG Hemoglobin ABG Oxyhemoglobin ABG Sodium ABG Chloride ABG Glucose Oxyhemoglobin Sodium Potassium Chloride Carbon Dioxide BUN Creatinine Glucose POC Glucose 113 H 140 H 143 H Lactic Acid Calcium Phosphorus Magnesium AST ALT Lactate Dehydrogenase Total Bilirubin Direct Bilirubin CK-MB (CK-2) C-Reactive Protein NT-Pro-B Natriuret Pep Total Protein Albumin Arterial Blood Glucose Urine WBC (Auto) Urine Creatinine 02/09/20 02/09/20 02/10/20 21:40 23:45 06:00 WBC RBC Hgb Hct MCHC RDW MCV MCH Lymph % (Auto) [place] % (Auto) [place] # Eos # Lymph # (Auto) [place] # (Auto) Eos # (Auto) Seg Neutrophils % Seg Neuts % (Manual) Baso # (Auto) Lymphocytes % (Manual) Monocytes % (Manual) Eosinophils % (Manual) Basophils % (Manual) Seg Neutrophils # Seg Neutrophils # Man Lymphocytes # (Manual) Monocytes # (Manual) Eosinophils # (Manual) Nucleated RBC % Basophils # (Manual) PT INR APTT Heparin Anti-Xa Level ABG pH POC ABG pO2 ABG pO2 59.8 L ABG HCO3 33.3 H ABG O2 Saturation 88.9 L ABG Base Excess 7.4 H POC ABG pCO2 ABG Hemoglobin 10.4 L ABG Oxyhemoglobin ABG Sodium ABG Chloride ABG Glucose Oxyhemoglobin 86.3 L Sodium Potassium Chloride Carbon Dioxide BUN Creatinine Glucose POC Glucose 127 H 114 H Lactic Acid Calcium Phosphorus Magnesium AST ALT Lactate Dehydrogenase Total Bilirubin Direct Bilirubin CK-MB (CK-2) C-Reactive Protein NT-Pro-B Natriuret Pep Total Protein Albumin Arterial Blood Glucose Urine WBC (Auto) Urine Creatinine 02/10/20 02/10/20 02/10/20 07:40 07:40 13:38 WBC 11.5 H RBC Hgb 10.6 L Hct 34.7 L MCHC 31 L RDW 19.8 H MCV 79 L MCH 24 L Lymph % (Auto) [place] % (Auto) 9.2 H [place] # Eos # Lymph # (Auto) [place] # (Auto) 1.1 H Eos # (Auto) Seg Neutrophils % Seg Neuts % (Manual) Baso # (Auto) Lymphocytes % (Manual) Monocytes % (Manual) Eosinophils % (Manual) Basophils % (Manual) Seg Neutrophils # Seg Neutrophils # Man Lymphocytes # (Manual) Monocytes # (Manual) Eosinophils # (Manual) Nucleated RBC % Basophils # (Manual) PT INR APTT Heparin Anti-Xa Level ABG pH POC ABG pO2 ABG pO2 ABG HCO3 ABG O2 Saturation ABG Base Excess POC ABG pCO2 ABG Hemoglobin ABG Oxyhemoglobin ABG Sodium ABG Chloride ABG Glucose Oxyhemoglobin Sodium 151 H Potassium Chloride 107.2 H Carbon Dioxide 36 H BUN 25 H Creatinine 0.7 L Glucose 114 H POC Glucose 116 H Lactic Acid Calcium Phosphorus Magnesium 2.40 H AST ALT Lactate Dehydrogenase Total Bilirubin Direct Bilirubin CK-MB (CK-2) C-Reactive Protein NT-Pro-B Natriuret Pep Total Protein Albumin Arterial Blood Glucose Urine WBC (Auto) Urine Creatinine 02/10/20 02/11/20 02/11/20 17:44 05:47 12:21 WBC RBC Hgb Hct MCHC RDW MCV MCH Lymph % (Auto) [place] % (Auto) [place] # Eos # Lymph # (Auto) [place] # (Auto) Eos # (Auto) Seg Neutrophils % Seg Neuts % (Manual) Baso # (Auto) Lymphocytes % (Manual) Monocytes % (Manual) Eosinophils % (Manual) Basophils % (Manual) Seg Neutrophils # Seg Neutrophils # Man Lymphocytes # (Manual) Monocytes # (Manual) Eosinophils # (Manual) Nucleated RBC % Basophils # (Manual) PT INR APTT Heparin Anti-Xa Level ABG pH POC ABG pO2 ABG pO2 ABG HCO3 ABG O2 Saturation ABG Base Excess POC ABG pCO2 ABG Hemoglobin ABG Oxyhemoglobin ABG Sodium ABG Chloride ABG Glucose Oxyhemoglobin Sodium Potassium Chloride Carbon Dioxide BUN Creatinine Glucose POC Glucose 139 H 173 H 143 H Lactic Acid Calcium Phosphorus Magnesium AST ALT Lactate Dehydrogenase Total Bilirubin Direct Bilirubin CK-MB (CK-2) C-Reactive Protein NT-Pro-B Natriuret Pep Total Protein Albumin Arterial Blood Glucose Urine WBC (Auto) Urine Creatinine 02/11/20 02/11/20 02/12/20 13:43 14:11 00:15 WBC RBC Hgb Hct MCHC RDW MCV MCH Lymph % (Auto) [place] % (Auto) [place] # Eos # Lymph # (Auto) [place] # (Auto) Eos # (Auto) Seg Neutrophils % Seg Neuts % (Manual) Baso # (Auto) Lymphocytes % (Manual) Monocytes % (Manual) Eosinophils % (Manual) Basophils % (Manual) Seg Neutrophils # Seg Neutrophils # Man Lymphocytes # (Manual) Monocytes # (Manual) Eosinophils # (Manual) Nucleated RBC % Basophils # (Manual) PT INR APTT Heparin Anti-Xa Level ABG pH 7.502 H POC ABG pO2 77.7 L ABG pO2 ABG HCO3 ABG O2 Saturation ABG Base Excess POC ABG pCO2 ABG Hemoglobin 11.1 L ABG Oxyhemoglobin ABG Sodium ABG Chloride 108.0 H ABG Glucose 151 H Oxyhemoglobin Sodium Potassium Chloride Carbon Dioxide BUN Creatinine Glucose POC Glucose 130 H 125 H Lactic Acid Calcium Phosphorus Magnesium AST ALT Lactate Dehydrogenase Total Bilirubin Direct Bilirubin CK-MB (CK-2) C-Reactive Protein NT-Pro-B Natriuret Pep Total Protein Albumin Arterial Blood Glucose 151 H Urine WBC (Auto) Urine Creatinine 02/12/20 02/12/20 02/12/20 04:56 04:56 17:42 WBC RBC Hgb 9.9 L Hct 31.8 L MCHC 31 L RDW 19.4 H MCV 79 L MCH 25 L Lymph % (Auto) [place] % (Auto) 10.3 H [place] # Eos # Lymph # (Auto) [place] # (Auto) 1.0 H Eos # (Auto) Seg Neutrophils % Seg Neuts % (Manual) Baso # (Auto) Lymphocytes % (Manual) Monocytes % (Manual) Eosinophils % (Manual) Basophils % (Manual) Seg Neutrophils # Seg Neutrophils # Man Lymphocytes # (Manual) Monocytes # (Manual) Eosinophils # (Manual) Nucleated RBC % Basophils # (Manual) PT INR APTT Heparin Anti-Xa Level ABG pH POC ABG pO2 ABG pO2 ABG HCO3 ABG O2 Saturation ABG Base Excess POC ABG pCO2 ABG Hemoglobin ABG Oxyhemoglobin ABG Sodium ABG Chloride ABG Glucose Oxyhemoglobin Sodium 149 H Potassium Chloride 108.6 H Carbon Dioxide BUN 28 H Creatinine 0.7 L Glucose 108 H POC Glucose 113 H Lactic Acid Calcium Phosphorus Magnesium AST ALT Lactate Dehydrogenase Total Bilirubin Direct Bilirubin CK-MB (CK-2) C-Reactive Protein NT-Pro-B Natriuret Pep Total Protein Albumin Arterial Blood Glucose Urine WBC (Auto) Urine Creatinine 02/13/20 02/13/20 02/13/20 00:39 05:36 12:25 WBC RBC Hgb Hct MCHC RDW MCV MCH Lymph % (Auto) [place] % (Auto) [place] # Eos # Lymph # (Auto) [place] # (Auto) Eos # (Auto) Seg Neutrophils % Seg Neuts % (Manual) Baso # (Auto) Lymphocytes % (Manual) Monocytes % (Manual) Eosinophils % (Manual) Basophils % (Manual) Seg Neutrophils # Seg Neutrophils # Man Lymphocytes # (Manual) Monocytes # (Manual) Eosinophils # (Manual) Nucleated RBC % Basophils # (Manual) PT INR APTT Heparin Anti-Xa Level ABG pH POC ABG pO2 ABG pO2 ABG HCO3 ABG O2 Saturation ABG Base Excess POC ABG pCO2 ABG Hemoglobin ABG Oxyhemoglobin ABG Sodium ABG Chloride ABG Glucose Oxyhemoglobin Sodium Potassium Chloride Carbon Dioxide BUN Creatinine Glucose POC Glucose 129 H 126 H 129 H Lactic Acid Calcium Phosphorus Magnesium AST ALT Lactate Dehydrogenase Total Bilirubin Direct Bilirubin CK-MB (CK-2) C-Reactive Protein NT-Pro-B Natriuret Pep Total Protein Albumin Arterial Blood Glucose Urine WBC (Auto) Urine Creatinine 02/13/20 02/14/20 02/14/20 17:59 00:15 05:41 WBC RBC Hgb Hct MCHC RDW MCV MCH Lymph % (Auto) [place] % (Auto) [place] # Eos # Lymph # (Auto) [place] # (Auto) Eos # (Auto) Seg Neutrophils % Seg Neuts % (Manual) Baso # (Auto) Lymphocytes % (Manual) Monocytes % (Manual) Eosinophils % (Manual) Basophils % (Manual) Seg Neutrophils # Seg Neutrophils # Man Lymphocytes # (Manual) Monocytes # (Manual) Eosinophils # (Manual) Nucleated RBC % Basophils # (Manual) PT INR APTT Heparin Anti-Xa Level ABG pH POC ABG pO2 ABG pO2 ABG HCO3 ABG O2 Saturation ABG Base Excess POC ABG pCO2 ABG Hemoglobin ABG Oxyhemoglobin ABG Sodium ABG Chloride ABG Glucose Oxyhemoglobin Sodium Potassium Chloride Carbon Dioxide BUN Creatinine Glucose POC Glucose 153 H 130 H 130 H Lactic Acid Calcium Phosphorus Magnesium AST ALT Lactate Dehydrogenase Total Bilirubin Direct Bilirubin CK-MB (CK-2) C-Reactive Protein NT-Pro-B Natriuret Pep Total Protein Albumin Arterial Blood Glucose Urine WBC (Auto) Urine Creatinine 02/14/20 02/15/20 02/15/20 11:32 00:12 05:27 WBC RBC Hgb Hct MCHC RDW MCV MCH Lymph % (Auto) [place] % (Auto) [place] # Eos # Lymph # (Auto) [place] # (Auto) Eos # (Auto) Seg Neutrophils % Seg Neuts % (Manual) Baso # (Auto) Lymphocytes % (Manual) Monocytes % (Manual) Eosinophils % (Manual) Basophils % (Manual) Seg Neutrophils # Seg Neutrophils # Man Lymphocytes # (Manual) Monocytes # (Manual) Eosinophils # (Manual) Nucleated RBC % Basophils # (Manual) PT INR APTT Heparin Anti-Xa Level ABG pH POC ABG pO2 ABG pO2 ABG HCO3 ABG O2 Saturation ABG Base Excess POC ABG pCO2 ABG Hemoglobin ABG Oxyhemoglobin ABG Sodium ABG Chloride ABG Glucose Oxyhemoglobin Sodium Potassium Chloride Carbon Dioxide BUN Creatinine Glucose POC Glucose 157 H 124 H 111 H Lactic Acid Calcium Phosphorus Magnesium AST ALT Lactate Dehydrogenase Total Bilirubin Direct Bilirubin CK-MB (CK-2) C-Reactive Protein NT-Pro-B Natriuret Pep Total Protein Albumin Arterial Blood Glucose Urine WBC (Auto) Urine Creatinine 02/15/20 02/15/20 02/15/20 06:59 06:59 11:14 WBC RBC Hgb 10.4 L Hct 33.7 L MCHC 31 L RDW 19.4 H MCV 80 L MCH 24 L Lymph % (Auto) [place] % (Auto) [place] # Eos # Lymph # (Auto) [place] # (Auto) Eos # (Auto) Seg Neutrophils % Seg Neuts % (Manual) Baso # (Auto) Lymphocytes % (Manual) Monocytes % (Manual) Eosinophils % (Manual) Basophils % (Manual) 2.0 H Seg Neutrophils # Seg Neutrophils # Man Lymphocytes # (Manual) Monocytes # (Manual) Eosinophils # (Manual) Nucleated RBC % 1.0 H Basophils # (Manual) 0.2 H PT INR APTT Heparin Anti-Xa Level ABG pH POC ABG pO2 ABG pO2 ABG HCO3 ABG O2 Saturation ABG Base Excess POC ABG pCO2 ABG Hemoglobin ABG Oxyhemoglobin ABG Sodium ABG Chloride ABG Glucose Oxyhemoglobin Sodium 149 H Potassium Chloride 108.4 H Carbon Dioxide 31 H BUN 40 H Creatinine 0.7 L Glucose 150 H POC Glucose 128 H Lactic Acid Calcium Phosphorus Magnesium AST ALT Lactate Dehydrogenase Total Bilirubin Direct Bilirubin CK-MB (CK-2) C-Reactive Protein NT-Pro-B Natriuret Pep Total Protein Albumin Arterial Blood Glucose Urine WBC (Auto) Urine Creatinine 02/15/20 02/15/20 02/16/20 17:46 23:50 05:03 WBC RBC Hgb Hct MCHC RDW MCV MCH Lymph % (Auto) [place] % (Auto) [place] # Eos # Lymph # (Auto) [place] # (Auto) Eos # (Auto) Seg Neutrophils % Seg Neuts % (Manual) Baso # (Auto) Lymphocytes % (Manual) Monocytes % (Manual) Eosinophils % (Manual) Basophils % (Manual) Seg Neutrophils # Seg Neutrophils # Man Lymphocytes # (Manual) Monocytes # (Manual) Eosinophils # (Manual) Nucleated RBC % Basophils # (Manual) PT INR APTT Heparin Anti-Xa Level ABG pH POC ABG pO2 ABG pO2 ABG HCO3 ABG O2 Saturation ABG Base Excess POC ABG pCO2 ABG Hemoglobin ABG Oxyhemoglobin ABG Sodium ABG Chloride ABG Glucose Oxyhemoglobin Sodium Potassium Chloride Carbon Dioxide BUN Creatinine Glucose POC Glucose 154 H 135 H 148 H Lactic Acid Calcium Phosphorus Magnesium AST ALT Lactate Dehydrogenase Total Bilirubin Direct Bilirubin CK-MB (CK-2) C-Reactive Protein NT-Pro-B Natriuret Pep Total Protein Albumin Arterial Blood Glucose Urine WBC (Auto) Urine Creatinine 02/16/20 02/16/20 02/16/20 07:53 11:28 17:52 WBC RBC Hgb Hct MCHC RDW MCV MCH Lymph % (Auto) [place] % (Auto) [place] # Eos # Lymph # (Auto) [place] # (Auto) Eos # (Auto) Seg Neutrophils % Seg Neuts % (Manual) Baso # (Auto) Lymphocytes % (Manual) Monocytes % (Manual) Eosinophils % (Manual) Basophils % (Manual) Seg Neutrophils # Seg Neutrophils # Man Lymphocytes # (Manual) Monocytes # (Manual) Eosinophils # (Manual) Nucleated RBC % Basophils # (Manual) PT INR APTT Heparin Anti-Xa Level ABG pH POC ABG pO2 ABG pO2 ABG HCO3 ABG O2 Saturation ABG Base Excess POC ABG pCO2 ABG Hemoglobin ABG Oxyhemoglobin ABG Sodium ABG Chloride ABG Glucose Oxyhemoglobin Sodium Potassium Chloride 107.9 H Carbon Dioxide BUN 38 H Creatinine 0.6 L Glucose 151 H POC Glucose 123 H 152 H Lactic Acid Calcium Phosphorus Magnesium AST ALT Lactate Dehydrogenase Total Bilirubin Direct Bilirubin CK-MB (CK-2) C-Reactive Protein NT-Pro-B Natriuret Pep Total Protein Albumin Arterial Blood Glucose Urine WBC (Auto) Urine Creatinine 02/16/20 02/17/20 02/17/20 23:49 06:24 11:36 WBC RBC Hgb Hct MCHC RDW MCV MCH Lymph % (Auto) [place] % (Auto) [place] # Eos # Lymph # (Auto) [place] # (Auto) Eos # (Auto) Seg Neutrophils % Seg Neuts % (Manual) Baso # (Auto) Lymphocytes % (Manual) Monocytes % (Manual) Eosinophils % (Manual) Basophils % (Manual) Seg Neutrophils # Seg Neutrophils # Man Lymphocytes # (Manual) Monocytes # (Manual) Eosinophils # (Manual) Nucleated RBC % Basophils # (Manual) PT INR APTT Heparin Anti-Xa Level ABG pH POC ABG pO2 ABG pO2 ABG HCO3 ABG O2 Saturation ABG Base Excess POC ABG pCO2 ABG Hemoglobin ABG Oxyhemoglobin ABG Sodium ABG Chloride ABG Glucose Oxyhemoglobin Sodium Potassium Chloride Carbon Dioxide BUN Creatinine Glucose POC Glucose 156 H 193 H 162 H Lactic Acid Calcium Phosphorus Magnesium AST ALT Lactate Dehydrogenase Total Bilirubin Direct Bilirubin CK-MB (CK-2) C-Reactive Protein NT-Pro-B Natriuret Pep Total Protein Albumin Arterial Blood Glucose Urine WBC (Auto) Urine Creatinine 02/17/20 02/17/20 02/18/20 17:55 23:28 05:11 WBC RBC Hgb Hct MCHC RDW MCV MCH Lymph % (Auto) [place] % (Auto) [place] # Eos # Lymph # (Auto) [place] # (Auto) Eos # (Auto) Seg Neutrophils % Seg Neuts % (Manual) Baso # (Auto) Lymphocytes % (Manual) Monocytes % (Manual) Eosinophils % (Manual) Basophils % (Manual) Seg Neutrophils # Seg Neutrophils # Man Lymphocytes # (Manual) Monocytes # (Manual) Eosinophils # (Manual) Nucleated RBC % Basophils # (Manual) PT INR APTT Heparin Anti-Xa Level ABG pH POC ABG pO2 ABG pO2 ABG HCO3 ABG O2 Saturation ABG Base Excess POC ABG pCO2 ABG Hemoglobin ABG Oxyhemoglobin ABG Sodium ABG Chloride ABG Glucose Oxyhemoglobin Sodium Potassium Chloride Carbon Dioxide BUN Creatinine Glucose POC Glucose 165 H 146 H 122 H Lactic Acid Calcium Phosphorus Magnesium AST ALT Lactate Dehydrogenase Total Bilirubin Direct Bilirubin CK-MB (CK-2) C-Reactive Protein NT-Pro-B Natriuret Pep Total Protein Albumin Arterial Blood Glucose Urine WBC (Auto) Urine Creatinine 02/18/20 02/18/20 02/19/20 12:24 17:29 00:01 WBC RBC Hgb Hct MCHC RDW MCV MCH Lymph % (Auto) [place] % (Auto) [place] # Eos # Lymph # (Auto) [place] # (Auto) Eos # (Auto) Seg Neutrophils % Seg Neuts % (Manual) Baso # (Auto) Lymphocytes % (Manual) Monocytes % (Manual) Eosinophils % (Manual) Basophils % (Manual) Seg Neutrophils # Seg Neutrophils # Man Lymphocytes # (Manual) Monocytes # (Manual) Eosinophils # (Manual) Nucleated RBC % Basophils # (Manual) PT INR APTT Heparin Anti-Xa Level ABG pH POC ABG pO2 ABG pO2 ABG HCO3 ABG O2 Saturation ABG Base Excess POC ABG pCO2 ABG Hemoglobin ABG Oxyhemoglobin ABG Sodium ABG Chloride ABG Glucose Oxyhemoglobin Sodium Potassium Chloride Carbon Dioxide BUN Creatinine Glucose POC Glucose 162 H 136 H 145 H Lactic Acid Calcium Phosphorus Magnesium AST ALT Lactate Dehydrogenase Total Bilirubin Direct Bilirubin CK-MB (CK-2) C-Reactive Protein NT-Pro-B Natriuret Pep Total Protein Albumin Arterial Blood Glucose Urine WBC (Auto) Urine Creatinine 02/19/20 02/19/20 02/19/20 05:53 11:44 17:32 WBC RBC Hgb Hct MCHC RDW MCV MCH Lymph % (Auto) [place] % (Auto) [place] # Eos # Lymph # (Auto) [place] # (Auto) Eos # (Auto) Seg Neutrophils % Seg Neuts % (Manual) Baso # (Auto) Lymphocytes % (Manual) Monocytes % (Manual) Eosinophils % (Manual) Basophils % (Manual) Seg Neutrophils # Seg Neutrophils # Man Lymphocytes # (Manual) Monocytes # (Manual) Eosinophils # (Manual) Nucleated RBC % Basophils # (Manual) PT INR APTT Heparin Anti-Xa Level ABG pH POC ABG pO2 ABG pO2 ABG HCO3 ABG O2 Saturation ABG Base Excess POC ABG pCO2 ABG Hemoglobin ABG Oxyhemoglobin ABG Sodium ABG Chloride ABG Glucose Oxyhemoglobin Sodium Potassium Chloride Carbon Dioxide BUN Creatinine Glucose POC Glucose 116 H 120 H 154 H Lactic Acid Calcium Phosphorus Magnesium AST ALT Lactate Dehydrogenase Total Bilirubin Direct Bilirubin CK-MB (CK-2) C-Reactive Protein NT-Pro-B Natriuret Pep Total Protein Albumin Arterial Blood Glucose Urine WBC (Auto) Urine Creatinine 02/19/20 02/20/20 02/20/20 23:43 00:24 00:24 WBC RBC Hgb 9.4 L Hct 30.0 L MCHC 31 L RDW 20.4 H MCV 79 L MCH 25 L Lymph % (Auto) [place] % (Auto) 8.5 H [place] # Eos # Lymph # (Auto) [place] # (Auto) Eos # (Auto) Seg Neutrophils % Seg Neuts % (Manual) Baso # (Auto) Lymphocytes % (Manual) Monocytes % (Manual) Eosinophils % (Manual) Basophils % (Manual) Seg Neutrophils # Seg Neutrophils # Man Lymphocytes # (Manual) Monocytes # (Manual) Eosinophils # (Manual) Nucleated RBC % Basophils # (Manual) PT INR APTT Heparin Anti-Xa Level ABG pH POC ABG pO2 ABG pO2 ABG HCO3 ABG O2 Saturation ABG Base Excess POC ABG pCO2 ABG Hemoglobin ABG Oxyhemoglobin ABG Sodium ABG Chloride ABG Glucose Oxyhemoglobin Sodium 147 H Potassium 3.4 L Chloride Carbon Dioxide 31 H BUN 34 H Creatinine 0.5 L Glucose 135 H POC Glucose 122 H Lactic Acid Calcium Phosphorus Magnesium AST ALT Lactate Dehydrogenase Total Bilirubin Direct Bilirubin CK-MB (CK-2) C-Reactive Protein NT-Pro-B Natriuret Pep Total Protein Albumin Arterial Blood Glucose Urine WBC (Auto) Urine Creatinine 02/20/20 02/20/20 02/20/20 06:07 06:45 12:03 WBC RBC Hgb Hct MCHC RDW MCV MCH Lymph % (Auto) [place] % (Auto) [place] # Eos # Lymph # (Auto) [place] # (Auto) Eos # (Auto) Seg Neutrophils % Seg Neuts % (Manual) Baso # (Auto) Lymphocytes % (Manual) Monocytes % (Manual) Eosinophils % (Manual) Basophils % (Manual) Seg Neutrophils # Seg Neutrophils # Man Lymphocytes # (Manual) Monocytes # (Manual) Eosinophils # (Manual) Nucleated RBC % Basophils # (Manual) PT INR APTT Heparin Anti-Xa Level ABG pH 7.461 H POC ABG pO2 ABG pO2 ABG HCO3 33.3 H ABG O2 Saturation ABG Base Excess 8.4 H POC ABG pCO2 ABG Hemoglobin 10.0 L ABG Oxyhemoglobin ABG Sodium ABG Chloride ABG Glucose Oxyhemoglobin 94.1 L Sodium Potassium Chloride Carbon Dioxide BUN Creatinine Glucose POC Glucose 109 H 128 H Lactic Acid Calcium Phosphorus Magnesium AST ALT Lactate Dehydrogenase Total Bilirubin Direct Bilirubin CK-MB (CK-2) C-Reactive Protein NT-Pro-B Natriuret Pep Total Protein Albumin Arterial Blood Glucose Urine WBC (Auto) Urine Creatinine 02/20/20 02/20/20 02/21/20 18:02 23:55 05:42 WBC RBC Hgb Hct MCHC RDW MCV MCH Lymph % (Auto) [place] % (Auto) [place] # Eos # Lymph # (Auto) [place] # (Auto) Eos # (Auto) Seg Neutrophils % Seg Neuts % (Manual) Baso # (Auto) Lymphocytes % (Manual) Monocytes % (Manual) Eosinophils % (Manual) Basophils % (Manual) Seg Neutrophils # Seg Neutrophils # Man Lymphocytes # (Manual) Monocytes # (Manual) Eosinophils # (Manual) Nucleated RBC % Basophils # (Manual) PT INR APTT Heparin Anti-Xa Level ABG pH POC ABG pO2 ABG pO2 ABG HCO3 ABG O2 Saturation ABG Base Excess POC ABG pCO2 ABG Hemoglobin ABG Oxyhemoglobin ABG Sodium ABG Chloride ABG Glucose Oxyhemoglobin Sodium Potassium Chloride Carbon Dioxide BUN Creatinine Glucose POC Glucose 118 H 125 H 127 H Lactic Acid Calcium Phosphorus Magnesium AST ALT Lactate Dehydrogenase Total Bilirubin Direct Bilirubin CK-MB (CK-2) C-Reactive Protein NT-Pro-B Natriuret Pep Total Protein Albumin Arterial Blood Glucose Urine WBC (Auto) Urine Creatinine 02/21/20 02/21/20 02/21/20 12:10 17:35 23:40 WBC RBC Hgb Hct MCHC RDW MCV MCH Lymph % (Auto) [place] % (Auto) [place] # Eos # Lymph # (Auto) [place] # (Auto) Eos # (Auto) Seg Neutrophils % Seg Neuts % (Manual) Baso # (Auto) Lymphocytes % (Manual) Monocytes % (Manual) Eosinophils % (Manual) Basophils % (Manual) Seg Neutrophils # Seg Neutrophils # Man Lymphocytes # (Manual) Monocytes # (Manual) Eosinophils # (Manual) Nucleated RBC % Basophils # (Manual) PT INR APTT Heparin Anti-Xa Level ABG pH POC ABG pO2 ABG pO2 ABG HCO3 ABG O2 Saturation ABG Base Excess POC ABG pCO2 ABG Hemoglobin ABG Oxyhemoglobin ABG Sodium ABG Chloride ABG Glucose Oxyhemoglobin Sodium Potassium Chloride Carbon Dioxide BUN Creatinine Glucose POC Glucose 128 H 113 H 125 H Lactic Acid Calcium Phosphorus Magnesium AST ALT Lactate Dehydrogenase Total Bilirubin Direct Bilirubin CK-MB (CK-2) C-Reactive Protein NT-Pro-B Natriuret Pep Total Protein Albumin Arterial Blood Glucose Urine WBC (Auto) Urine Creatinine 02/22/20 02/22/20 02/22/20 05:57 08:06 08:06 WBC RBC Hgb 10.8 L Hct 35.2 L MCHC 31 L RDW 21.8 H MCV 80 L MCH 25 L Lymph % (Auto) [place] % (Auto) [place] # Eos # Lymph # (Auto) [place] # (Auto) Eos # (Auto) Seg Neutrophils % 71.5 H Seg Neuts % (Manual) Baso # (Auto) Lymphocytes % (Manual) Monocytes % (Manual) Eosinophils % (Manual) Basophils % (Manual) Seg Neutrophils # Seg Neutrophils # Man Lymphocytes # (Manual) Monocytes # (Manual) Eosinophils # (Manual) Nucleated RBC % Basophils # (Manual) PT INR APTT Heparin Anti-Xa Level ABG pH POC ABG pO2 ABG pO2 ABG HCO3 ABG O2 Saturation ABG Base Excess POC ABG pCO2 ABG Hemoglobin ABG Oxyhemoglobin ABG Sodium ABG Chloride ABG Glucose Oxyhemoglobin Sodium 146 H Potassium Chloride Carbon Dioxide 34 H BUN 21 H Creatinine 0.4 L Glucose 149 H POC Glucose 138 H Lactic Acid Calcium Phosphorus Magnesium AST ALT Lactate Dehydrogenase Total Bilirubin Direct Bilirubin CK-MB (CK-2) C-Reactive Protein NT-Pro-B Natriuret Pep Total Protein Albumin Arterial Blood Glucose Urine WBC (Auto) Urine Creatinine 02/22/20 02/22/20 02/22/20 11:47 17:11 23:25 WBC RBC Hgb Hct MCHC RDW MCV MCH Lymph % (Auto) [place] % (Auto) [place] # Eos # Lymph # (Auto) [place] # (Auto) Eos # (Auto) Seg Neutrophils % Seg Neuts % (Manual) Baso # (Auto) Lymphocytes % (Manual) Monocytes % (Manual) Eosinophils % (Manual) Basophils % (Manual) Seg Neutrophils # Seg Neutrophils # Man Lymphocytes # (Manual) Monocytes # (Manual) Eosinophils # (Manual) Nucleated RBC % Basophils # (Manual) PT INR APTT Heparin Anti-Xa Level ABG pH POC ABG pO2 ABG pO2 ABG HCO3 ABG O2 Saturation ABG Base Excess POC ABG pCO2 ABG Hemoglobin ABG Oxyhemoglobin ABG Sodium ABG Chloride ABG Glucose Oxyhemoglobin Sodium Potassium Chloride Carbon Dioxide BUN Creatinine Glucose POC Glucose 149 H 144 H 142 H Lactic Acid Calcium Phosphorus Magnesium AST ALT Lactate Dehydrogenase Total Bilirubin Direct Bilirubin CK-MB (CK-2) C-Reactive Protein NT-Pro-B Natriuret Pep Total Protein Albumin Arterial Blood Glucose Urine WBC (Auto) Urine Creatinine 02/23/20 02/23/20 02/23/20 05:22 11:37 18:14 WBC RBC Hgb Hct MCHC RDW MCV MCH Lymph % (Auto) [place] % (Auto) [place] # Eos # Lymph # (Auto) [place] # (Auto) Eos # (Auto) Seg Neutrophils % Seg Neuts % (Manual) Baso # (Auto) Lymphocytes % (Manual) Monocytes % (Manual) Eosinophils % (Manual) Basophils % (Manual) Seg Neutrophils # Seg Neutrophils # Man Lymphocytes # (Manual) Monocytes # (Manual) Eosinophils # (Manual) Nucleated RBC % Basophils # (Manual) PT INR APTT Heparin Anti-Xa Level ABG pH POC ABG pO2 ABG pO2 ABG HCO3 ABG O2 Saturation ABG Base Excess POC ABG pCO2 ABG Hemoglobin ABG Oxyhemoglobin ABG Sodium ABG Chloride ABG Glucose Oxyhemoglobin Sodium Potassium Chloride Carbon Dioxide BUN Creatinine Glucose POC Glucose 144 H 113 H 127 H Lactic Acid Calcium Phosphorus Magnesium AST ALT Lactate Dehydrogenase Total Bilirubin Direct Bilirubin CK-MB (CK-2) C-Reactive Protein NT-Pro-B Natriuret Pep Total Protein Albumin Arterial Blood Glucose Urine WBC (Auto) Urine Creatinine 02/23/20 02/24/20 02/24/20 23:45 05:50 11:24 WBC RBC Hgb Hct MCHC RDW MCV MCH Lymph % (Auto) [place] % (Auto) [place] # Eos # Lymph # (Auto) [place] # (Auto) Eos # (Auto) Seg Neutrophils % Seg Neuts % (Manual) Baso # (Auto) Lymphocytes % (Manual) Monocytes % (Manual) Eosinophils % (Manual) Basophils % (Manual) Seg Neutrophils # Seg Neutrophils # Man Lymphocytes # (Manual) Monocytes # (Manual) Eosinophils # (Manual) Nucleated RBC % Basophils # (Manual) PT INR APTT Heparin Anti-Xa Level ABG pH POC ABG pO2 ABG pO2 ABG HCO3 ABG O2 Saturation ABG Base Excess POC ABG pCO2 ABG Hemoglobin ABG Oxyhemoglobin ABG Sodium ABG Chloride ABG Glucose Oxyhemoglobin Sodium Potassium Chloride Carbon Dioxide BUN Creatinine Glucose POC Glucose 123 H 117 H 126 H Lactic Acid Calcium Phosphorus Magnesium AST ALT Lactate Dehydrogenase Total Bilirubin Direct Bilirubin CK-MB (CK-2) C-Reactive Protein NT-Pro-B Natriuret Pep Total Protein Albumin Arterial Blood Glucose Urine WBC (Auto) Urine Creatinine 02/24/20 02/24/20 02/25/20 18:35 23:27 05:20 WBC RBC Hgb Hct MCHC RDW MCV MCH Lymph % (Auto) [place] % (Auto) [place] # Eos # Lymph # (Auto) [place] # (Auto) Eos # (Auto) Seg Neutrophils % Seg Neuts % (Manual) Baso # (Auto) Lymphocytes % (Manual) Monocytes % (Manual) Eosinophils % (Manual) Basophils % (Manual) Seg Neutrophils # Seg Neutrophils # Man Lymphocytes # (Manual) Monocytes # (Manual) Eosinophils # (Manual) Nucleated RBC % Basophils # (Manual) PT INR APTT Heparin Anti-Xa Level ABG pH POC ABG pO2 ABG pO2 ABG HCO3 ABG O2 Saturation ABG Base Excess POC ABG pCO2 ABG Hemoglobin ABG Oxyhemoglobin ABG Sodium ABG Chloride ABG Glucose Oxyhemoglobin Sodium Potassium Chloride Carbon Dioxide BUN Creatinine Glucose POC Glucose 121 H 127 H 133 H Lactic Acid Calcium Phosphorus Magnesium AST ALT Lactate Dehydrogenase Total Bilirubin Direct Bilirubin CK-MB (CK-2) C-Reactive Protein NT-Pro-B Natriuret Pep Total Protein Albumin Arterial Blood Glucose Urine WBC (Auto) Urine Creatinine 02/25/20 02/25/20 02/25/20 12:08 17:26 23:33 WBC RBC Hgb Hct MCHC RDW MCV MCH Lymph % (Auto) [place] % (Auto) [place] # Eos # Lymph # (Auto) [place] # (Auto) Eos # (Auto) Seg Neutrophils % Seg Neuts % (Manual) Baso # (Auto) Lymphocytes % (Manual) Monocytes % (Manual) Eosinophils % (Manual) Basophils % (Manual) Seg Neutrophils # Seg Neutrophils # Man Lymphocytes # (Manual) Monocytes # (Manual) Eosinophils # (Manual) Nucleated RBC % Basophils # (Manual) PT INR APTT Heparin Anti-Xa Level ABG pH POC ABG pO2 ABG pO2 ABG HCO3 ABG O2 Saturation ABG Base Excess POC ABG pCO2 ABG Hemoglobin ABG Oxyhemoglobin ABG Sodium ABG Chloride ABG Glucose Oxyhemoglobin Sodium Potassium Chloride Carbon Dioxide BUN Creatinine Glucose POC Glucose 109 H 120 H 120 H Lactic Acid Calcium Phosphorus Magnesium AST ALT Lactate Dehydrogenase Total Bilirubin Direct Bilirubin CK-MB (CK-2) C-Reactive Protein NT-Pro-B Natriuret Pep Total Protein Albumin Arterial Blood Glucose Urine WBC (Auto) Urine Creatinine 02/26/20 02/26/20 02/27/20 05:33 07:50 12:13 WBC RBC Hgb Hct MCHC RDW MCV MCH Lymph % (Auto) [place] % (Auto) [place] # Eos # Lymph # (Auto) [place] # (Auto) Eos # (Auto) Seg Neutrophils % Seg Neuts % (Manual) Baso # (Auto) Lymphocytes % (Manual) Monocytes % (Manual) Eosinophils % (Manual) Basophils % (Manual) Seg Neutrophils # Seg Neutrophils # Man Lymphocytes # (Manual) Monocytes # (Manual) Eosinophils # (Manual) Nucleated RBC % Basophils # (Manual) PT INR APTT Heparin Anti-Xa Level ABG pH POC ABG pO2 ABG pO2 ABG HCO3 ABG O2 Saturation ABG Base Excess POC ABG pCO2 ABG Hemoglobin ABG Oxyhemoglobin ABG Sodium ABG Chloride ABG Glucose Oxyhemoglobin Sodium Potassium Chloride Carbon Dioxide BUN Creatinine Glucose POC Glucose 106 H 130 H Lactic Acid Calcium Phosphorus Magnesium AST ALT Lactate Dehydrogenase Total Bilirubin Direct Bilirubin CK-MB (CK-2) C-Reactive Protein NT-Pro-B Natriuret Pep Total Protein Albumin Arterial Blood Glucose Urine WBC (Auto) > 182.0 H Urine Creatinine 02/27/20 02/27/20 02/28/20 18:20 23:33 05:01 WBC RBC Hgb Hct MCHC RDW MCV MCH Lymph % (Auto) [place] % (Auto) [place] # Eos # Lymph # (Auto) [place] # (Auto) Eos # (Auto) Seg Neutrophils % Seg Neuts % (Manual) Baso # (Auto) Lymphocytes % (Manual) Monocytes % (Manual) Eosinophils % (Manual) Basophils % (Manual) Seg Neutrophils # Seg Neutrophils # Man Lymphocytes # (Manual) Monocytes # (Manual) Eosinophils # (Manual) Nucleated RBC % Basophils # (Manual) PT INR APTT Heparin Anti-Xa Level ABG pH POC ABG pO2 ABG pO2 ABG HCO3 ABG O2 Saturation ABG Base Excess POC ABG pCO2 ABG Hemoglobin ABG Oxyhemoglobin ABG Sodium ABG Chloride ABG Glucose Oxyhemoglobin Sodium Potassium Chloride Carbon Dioxide BUN Creatinine Glucose POC Glucose 109 H 124 H 134 H Lactic Acid Calcium Phosphorus Magnesium AST ALT Lactate Dehydrogenase Total Bilirubin Direct Bilirubin CK-MB (CK-2) C-Reactive Protein NT-Pro-B Natriuret Pep Total Protein Albumin Arterial Blood Glucose Urine WBC (Auto) Urine Creatinine 02/28/20 02/28/20 02/28/20 11:54 18:16 23:03 WBC RBC Hgb Hct MCHC RDW MCV MCH Lymph % (Auto) [place] % (Auto) [place] # Eos # Lymph # (Auto) [place] # (Auto) Eos # (Auto) Seg Neutrophils % Seg Neuts % (Manual) Baso # (Auto) Lymphocytes % (Manual) Monocytes % (Manual) Eosinophils % (Manual) Basophils % (Manual) Seg Neutrophils # Seg Neutrophils # Man Lymphocytes # (Manual) Monocytes # (Manual) Eosinophils # (Manual) Nucleated RBC % Basophils # (Manual) PT INR APTT Heparin Anti-Xa Level ABG pH POC ABG pO2 ABG pO2 ABG HCO3 ABG O2 Saturation ABG Base Excess POC ABG pCO2 ABG Hemoglobin ABG Oxyhemoglobin ABG Sodium ABG Chloride ABG Glucose Oxyhemoglobin Sodium Potassium Chloride Carbon Dioxide BUN Creatinine Glucose POC Glucose 133 H 134 H 146 H Lactic Acid Calcium Phosphorus Magnesium AST ALT Lactate Dehydrogenase Total Bilirubin Direct Bilirubin CK-MB (CK-2) C-Reactive Protein NT-Pro-B Natriuret Pep Total Protein Albumin Arterial Blood Glucose Urine WBC (Auto) Urine Creatinine 02/29/20 02/29/20 02/29/20 05:24 11:34 17:12 WBC RBC Hgb Hct MCHC RDW MCV MCH Lymph % (Auto) [place] % (Auto) [place] # Eos # Lymph # (Auto) [place] # (Auto) Eos # (Auto) Seg Neutrophils % Seg Neuts % (Manual) Baso # (Auto) Lymphocytes % (Manual) Monocytes % (Manual) Eosinophils % (Manual) Basophils % (Manual) Seg Neutrophils # Seg Neutrophils # Man Lymphocytes # (Manual) Monocytes # (Manual) Eosinophils # (Manual) Nucleated RBC % Basophils # (Manual) PT INR APTT Heparin Anti-Xa Level ABG pH POC ABG pO2 ABG pO2 ABG HCO3 ABG O2 Saturation ABG Base Excess POC ABG pCO2 ABG Hemoglobin ABG Oxyhemoglobin ABG Sodium ABG Chloride ABG Glucose Oxyhemoglobin Sodium Potassium Chloride Carbon Dioxide BUN Creatinine Glucose POC Glucose 139 H 141 H 157 H Lactic Acid Calcium Phosphorus Magnesium AST ALT Lactate Dehydrogenase Total Bilirubin Direct Bilirubin CK-MB (CK-2) C-Reactive Protein NT-Pro-B Natriuret Pep Total Protein Albumin Arterial Blood Glucose Urine WBC (Auto) Urine Creatinine 02/29/20 03/01/20 03/01/20 23:35 06:00 11:53 WBC RBC Hgb Hct MCHC RDW MCV MCH Lymph % (Auto) [place] % (Auto) [place] # Eos # Lymph # (Auto) [place] # (Auto) Eos # (Auto) Seg Neutrophils % Seg Neuts % (Manual) Baso # (Auto) Lymphocytes % (Manual) Monocytes % (Manual) Eosinophils % (Manual) Basophils % (Manual) Seg Neutrophils # Seg Neutrophils # Man Lymphocytes # (Manual) Monocytes # (Manual) Eosinophils # (Manual) Nucleated RBC % Basophils # (Manual) PT INR APTT Heparin Anti-Xa Level ABG pH POC ABG pO2 ABG pO2 ABG HCO3 ABG O2 Saturation ABG Base Excess POC ABG pCO2 ABG Hemoglobin ABG Oxyhemoglobin ABG Sodium ABG Chloride ABG Glucose Oxyhemoglobin Sodium Potassium Chloride Carbon Dioxide BUN Creatinine Glucose POC Glucose 120 H 132 H 136 H Lactic Acid Calcium Phosphorus Magnesium AST ALT Lactate Dehydrogenase Total Bilirubin Direct Bilirubin CK-MB (CK-2) C-Reactive Protein NT-Pro-B Natriuret Pep Total Protein Albumin Arterial Blood Glucose Urine WBC (Auto) Urine Creatinine 03/01/20 03/01/20 03/02/20 17:36 23:16 05:12 WBC RBC Hgb Hct MCHC RDW MCV MCH Lymph % (Auto) [place] % (Auto) [place] # Eos # Lymph # (Auto) [place] # (Auto) Eos # (Auto) Seg Neutrophils % Seg Neuts % (Manual) Baso # (Auto) Lymphocytes % (Manual) Monocytes % (Manual) Eosinophils % (Manual) Basophils % (Manual) Seg Neutrophils # Seg Neutrophils # Man Lymphocytes # (Manual) Monocytes # (Manual) Eosinophils # (Manual) Nucleated RBC % Basophils # (Manual) PT INR APTT Heparin Anti-Xa Level ABG pH POC ABG pO2 ABG pO2 ABG HCO3 ABG O2 Saturation ABG Base Excess POC ABG pCO2 ABG Hemoglobin ABG Oxyhemoglobin ABG Sodium ABG Chloride ABG Glucose Oxyhemoglobin Sodium Potassium Chloride Carbon Dioxide BUN Creatinine Glucose POC Glucose 171 H 164 H 176 H Lactic Acid Calcium Phosphorus Magnesium AST ALT Lactate Dehydrogenase Total Bilirubin Direct Bilirubin CK-MB (CK-2) C-Reactive Protein NT-Pro-B Natriuret Pep Total Protein Albumin Arterial Blood Glucose Urine WBC (Auto) Urine Creatinine 03/02/20 03/02/20 03/03/20 11:42 18:01 00:06 WBC RBC Hgb Hct MCHC RDW MCV MCH Lymph % (Auto) [place] % (Auto) [place] # Eos # Lymph # (Auto) [place] # (Auto) Eos # (Auto) Seg Neutrophils % Seg Neuts % (Manual) Baso # (Auto) Lymphocytes % (Manual) Monocytes % (Manual) Eosinophils % (Manual) Basophils % (Manual) Seg Neutrophils # Seg Neutrophils # Man Lymphocytes # (Manual) Monocytes # (Manual) Eosinophils # (Manual) Nucleated RBC % Basophils # (Manual) PT INR APTT Heparin Anti-Xa Level ABG pH POC ABG pO2 ABG pO2 ABG HCO3 ABG O2 Saturation ABG Base Excess POC ABG pCO2 ABG Hemoglobin ABG Oxyhemoglobin ABG Sodium ABG Chloride ABG Glucose Oxyhemoglobin Sodium Potassium Chloride Carbon Dioxide BUN Creatinine Glucose POC Glucose 150 H 156 H 156 H Lactic Acid Calcium Phosphorus Magnesium AST ALT Lactate Dehydrogenase Total Bilirubin Direct Bilirubin CK-MB (CK-2) C-Reactive Protein NT-Pro-B Natriuret Pep Total Protein Albumin Arterial Blood Glucose Urine WBC (Auto) Urine Creatinine 03/03/20 03/03/20 03/03/20 03:31 11:20 16:55 WBC RBC Hgb Hct MCHC RDW MCV MCH Lymph % (Auto) [place] % (Auto) [place] # Eos # Lymph # (Auto) [place] # (Auto) Eos # (Auto) Seg Neutrophils % Seg Neuts % (Manual) Baso # (Auto) Lymphocytes % (Manual) Monocytes % (Manual) Eosinophils % (Manual) Basophils % (Manual) Seg Neutrophils # Seg Neutrophils # Man Lymphocytes # (Manual) Monocytes # (Manual) Eosinophils # (Manual) Nucleated RBC % Basophils # (Manual) PT INR APTT Heparin Anti-Xa Level ABG pH POC ABG pO2 ABG pO2 ABG HCO3 ABG O2 Saturation ABG Base Excess POC ABG pCO2 ABG Hemoglobin ABG Oxyhemoglobin ABG Sodium ABG Chloride ABG Glucose Oxyhemoglobin Sodium Potassium Chloride Carbon Dioxide BUN Creatinine Glucose POC Glucose 164 H 125 H 211 H Lactic Acid Calcium Phosphorus Magnesium AST ALT Lactate Dehydrogenase Total Bilirubin Direct Bilirubin CK-MB (CK-2) C-Reactive Protein NT-Pro-B Natriuret Pep Total Protein Albumin Arterial Blood Glucose Urine WBC (Auto) Urine Creatinine 03/04/20 03/04/2003/04/20 00:29 05:20 12:09 WBC RBC Hgb Hct MCHC RDW MCV MCH Lymph % (Auto) [place] % (Auto) [place] # Eos # Lymph # (Auto) [place] # (Auto) Eos # (Auto) Seg Neutrophils % Seg Neuts % (Manual) Baso # (Auto) Lymphocytes % (Manual) Monocytes % (Manual) Eosinophils % (Manual) Basophils % (Manual) Seg Neutrophils # Seg Neutrophils # Man Lymphocytes # (Manual) Monocytes # (Manual) Eosinophils # (Manual) Nucleated RBC % Basophils # (Manual) PT INR APTT Heparin Anti-Xa Level ABG pH POC ABG pO2 ABG pO2 ABG HCO3 ABG O2 Saturation ABG Base Excess POC ABG pCO2 ABG Hemoglobin ABG Oxyhemoglobin ABG Sodium ABG Chloride ABG Glucose Oxyhemoglobin Sodium Potassium Chloride Carbon Dioxide BUN Creatinine Glucose POC Glucose 169 H 154 H 197 H Lactic Acid Calcium Phosphorus Magnesium AST ALT Lactate Dehydrogenase Total Bilirubin Direct Bilirubin CK-MB (CK-2) C-Reactive Protein NT-Pro-B Natriuret Pep Total Protein Albumin Arterial Blood Glucose Urine WBC (Auto) Urine Creatinine 03/04/20 03/04/20 03/04/20 18:00 20:38 20:38 WBC RBC Hgb 10.1 L Hct 32.7 L MCHC 31 L RDW 24.7 H MCV 79 L MCH 24 L Lymph % (Auto) [place] % (Auto) 8.9 H [place] # Eos # Lymph # (Auto) [place] # (Auto) Eos # (Auto) Seg Neutrophils % Seg Neuts % (Manual) Baso # (Auto) Lymphocytes % (Manual) Monocytes % (Manual) Eosinophils % (Manual) Basophils % (Manual) Seg Neutrophils # Seg Neutrophils # Man Lymphocytes # (Manual) Monocytes # (Manual) Eosinophils # (Manual) Nucleated RBC % Basophils # (Manual) PT INR APTT Heparin Anti-Xa Level ABG pH POC ABG pO2 ABG pO2 ABG HCO3 ABG O2 Saturation ABG Base Excess POC ABG pCO2 ABG Hemoglobin ABG Oxyhemoglobin ABG Sodium ABG Chloride ABG Glucose Oxyhemoglobin Sodium 136 L Potassium Chloride Carbon Dioxide BUN 25 H Creatinine 0.5 L Glucose 148 H POC Glucose 146 H Lactic Acid Calcium Phosphorus Magnesium AST ALT Lactate Dehydrogenase Total Bilirubin Direct Bilirubin CK-MB (CK-2) C-Reactive Protein NT-Pro-B Natriuret Pep Total Protein Albumin Arterial Blood Glucose Urine WBC (Auto) Urine Creatinine 03/04/20 03/05/20 03/05/20 23:17 05:44 11:32 WBC RBC Hgb Hct MCHC RDW MCV MCH Lymph % (Auto) [place] % (Auto) [place] # Eos # Lymph # (Auto) [place] # (Auto) Eos # (Auto) Seg Neutrophils % Seg Neuts % (Manual) Baso # (Auto) Lymphocytes % (Manual) Monocytes % (Manual) Eosinophils % (Manual) Basophils % (Manual) Seg Neutrophils # Seg Neutrophils # Man Lymphocytes # (Manual) Monocytes # (Manual) Eosinophils # (Manual) Nucleated RBC % Basophils # (Manual) PT INR APTT Heparin Anti-Xa Level ABG pH POC ABG pO2 ABG pO2 ABG HCO3 ABG O2 Saturation ABG Base Excess POC ABG pCO2 ABG Hemoglobin ABG Oxyhemoglobin ABG Sodium ABG Chloride ABG Glucose Oxyhemoglobin Sodium Potassium Chloride Carbon Dioxide BUN Creatinine Glucose POC Glucose 139 H 155 H 124 H Lactic Acid Calcium Phosphorus Magnesium AST ALT Lactate Dehydrogenase Total Bilirubin Direct Bilirubin CK-MB (CK-2) C-Reactive Protein NT-Pro-B Natriuret Pep Total Protein Albumin Arterial Blood Glucose Urine WBC (Auto) Urine Creatinine 03/05/20 03/05/20 03/06/20 17:45 23:18 12:16 WBC RBC Hgb Hct MCHC RDW MCV MCH Lymph % (Auto) [place] % (Auto) [place] # Eos # Lymph # (Auto) [place] # (Auto) Eos # (Auto) Seg Neutrophils % Seg Neuts % (Manual) Baso # (Auto) Lymphocytes % (Manual) Monocytes % (Manual) Eosinophils % (Manual) Basophils % (Manual) Seg Neutrophils # Seg Neutrophils # Man Lymphocytes # (Manual) Monocytes # (Manual) Eosinophils # (Manual) Nucleated RBC % Basophils # (Manual) PT INR APTT Heparin Anti-Xa Level ABG pH POC ABG pO2 ABG pO2 ABG HCO3 ABG O2 Saturation ABG Base Excess POC ABG pCO2 ABG Hemoglobin ABG Oxyhemoglobin ABG Sodium ABG Chloride ABG Glucose Oxyhemoglobin Sodium Potassium Chloride Carbon Dioxide BUN Creatinine Glucose POC Glucose 171 H 114 H 155 H Lactic Acid Calcium Phosphorus Magnesium AST ALT Lactate Dehydrogenase Total Bilirubin Direct Bilirubin CK-MB (CK-2) C-Reactive Protein NT-Pro-B Natriuret Pep Total Protein Albumin Arterial Blood Glucose Urine WBC (Auto) Urine Creatinine 03/06/20 03/06/20 03/07/20 17:27 23:48 06:02 WBC RBC Hgb Hct MCHC RDW MCV MCH Lymph % (Auto) [place] % (Auto) [place] # Eos # Lymph # (Auto) [place] # (Auto) Eos # (Auto) Seg Neutrophils % Seg Neuts % (Manual) Baso # (Auto) Lymphocytes % (Manual) Monocytes % (Manual) Eosinophils % (Manual) Basophils % (Manual) Seg Neutrophils # Seg Neutrophils # Man Lymphocytes # (Manual) Monocytes # (Manual) Eosinophils # (Manual) Nucleated RBC % Basophils # (Manual) PT INR APTT Heparin Anti-Xa Level ABG pH POC ABG pO2 ABG pO2 ABG HCO3 ABG O2 Saturation ABG Base Excess POC ABG pCO2 ABG Hemoglobin ABG Oxyhemoglobin ABG Sodium ABG Chloride ABG Glucose Oxyhemoglobin Sodium Potassium Chloride Carbon Dioxide BUN Creatinine Glucose POC Glucose 116 H 142 H 161 H Lactic Acid Calcium Phosphorus Magnesium AST ALT Lactate Dehydrogenase Total Bilirubin Direct Bilirubin CK-MB (CK-2) C-Reactive Protein NT-Pro-B Natriuret Pep Total Protein Albumin Arterial Blood Glucose Urine WBC (Auto) Urine Creatinine 03/07/20 03/08/20 03/08/20 11:36 05:18 11:51 WBC RBC Hgb Hct MCHC RDW MCV MCH Lymph % (Auto) [place] % (Auto) [place] # Eos # Lymph # (Auto) [place] # (Auto) Eos # (Auto) Seg Neutrophils % Seg Neuts % (Manual) Baso # (Auto) Lymphocytes % (Manual) Monocytes % (Manual) Eosinophils % (Manual) Basophils % (Manual) Seg Neutrophils # Seg Neutrophils # Man Lymphocytes # (Manual) Monocytes # (Manual) Eosinophils # (Manual) Nucleated RBC % Basophils # (Manual) PT INR APTT Heparin Anti-Xa Level ABG pH POC ABG pO2 ABG pO2 ABG HCO3 ABG O2 Saturation ABG Base Excess POC ABG pCO2 ABG Hemoglobin ABG Oxyhemoglobin ABG Sodium ABG Chloride ABG Glucose Oxyhemoglobin Sodium Potassium Chloride Carbon Dioxide BUN Creatinine Glucose POC Glucose 127 H 142 H 135 H Lactic Acid Calcium Phosphorus Magnesium AST ALT Lactate Dehydrogenase Total Bilirubin Direct Bilirubin CK-MB (CK-2) C-Reactive Protein NT-Pro-B Natriuret Pep Total Protein Albumin Arterial Blood Glucose Urine WBC (Auto) Urine Creatinine 03/08/20 03/08/20 03/09/20 18:14 23:45 05:36 WBC RBC Hgb Hct MCHC RDW MCV MCH Lymph % (Auto) [place] % (Auto) [place] # Eos # Lymph # (Auto) [place] # (Auto) Eos # (Auto) Seg Neutrophils % Seg Neuts % (Manual) Baso # (Auto) Lymphocytes % (Manual) Monocytes % (Manual) Eosinophils % (Manual) Basophils % (Manual) Seg Neutrophils # Seg Neutrophils # Man Lymphocytes # (Manual) Monocytes # (Manual) Eosinophils # (Manual) Nucleated RBC % Basophils # (Manual) PT INR APTT Heparin Anti-Xa Level ABG pH POC ABG pO2 ABG pO2 ABG HCO3 ABG O2 Saturation ABG Base Excess POC ABG pCO2 ABG Hemoglobin ABG Oxyhemoglobin ABG Sodium ABG Chloride ABG Glucose Oxyhemoglobin Sodium Potassium Chloride Carbon Dioxide BUN Creatinine Glucose POC Glucose 125 H 143 H 158 H Lactic Acid Calcium Phosphorus Magnesium AST ALT Lactate Dehydrogenase Total Bilirubin Direct Bilirubin CK-MB (CK-2) C-Reactive Protein NT-Pro-B Natriuret Pep Total Protein Albumin Arterial Blood Glucose Urine WBC (Auto) Urine Creatinine 03/09/20 03/09/20 03/09/20 06:32 06:32 11:34 WBC RBC Hgb 9.8 L Hct 31.6 L MCHC 31 L RDW 23.1 H MCV 80 L MCH 25 L Lymph % (Auto) 35.1 H [place] % (Auto) 11.4 H [place] # Eos # Lymph # (Auto) [place] # (Auto) Eos # (Auto) Seg Neutrophils % Seg Neuts % (Manual) Baso # (Auto) Lymphocytes % (Manual) Monocytes % (Manual) Eosinophils % (Manual) Basophils % (Manual) Seg Neutrophils # Seg Neutrophils # Man Lymphocytes # (Manual) Monocytes # (Manual) Eosinophils # (Manual) Nucleated RBC % Basophils # (Manual) PT INR APTT Heparin Anti-Xa Level ABG pH POC ABG pO2 ABG pO2 ABG HCO3 ABG O2 Saturation ABG Base Excess POC ABG pCO2 ABG Hemoglobin ABG Oxyhemoglobin ABG Sodium ABG Chloride ABG Glucose Oxyhemoglobin Sodium 136 L Potassium Chloride Carbon Dioxide BUN 25 H Creatinine 0.6 L Glucose 170 H POC Glucose 140 H Lactic Acid Calcium Phosphorus Magnesium AST ALT Lactate Dehydrogenase Total Bilirubin Direct Bilirubin CK-MB (CK-2) C-Reactive Protein NT-Pro-B Natriuret Pep Total Protein Albumin Arterial Blood Glucose Urine WBC (Auto) Urine Creatinine 03/09/20 03/09/20 03/10/20 18:10 23:11 05:41 WBC RBC Hgb Hct MCHC RDW MCV MCH Lymph % (Auto) [place] % (Auto) [place] # Eos # Lymph # (Auto) [place] # (Auto) Eos # (Auto) Seg Neutrophils % Seg Neuts % (Manual) Baso # (Auto) Lymphocytes % (Manual) Monocytes % (Manual) Eosinophils % (Manual) Basophils % (Manual) Seg Neutrophils # Seg Neutrophils # Man Lymphocytes # (Manual) Monocytes # (Manual) Eosinophils # (Manual) Nucleated RBC % Basophils # (Manual) PT INR APTT Heparin Anti-Xa Level ABG pH POC ABG pO2 ABG pO2 ABG HCO3 ABG O2 Saturation ABG Base Excess POC ABG pCO2 ABG Hemoglobin ABG Oxyhemoglobin ABG Sodium ABG Chloride ABG Glucose Oxyhemoglobin Sodium Potassium Chloride Carbon Dioxide BUN Creatinine Glucose POC Glucose 153 H 111 H 138 H Lactic Acid Calcium Phosphorus Magnesium AST ALT Lactate Dehydrogenase Total Bilirubin Direct Bilirubin CK-MB (CK-2) C-Reactive Protein NT-Pro-B Natriuret Pep Total Protein Albumin Arterial Blood Glucose Urine WBC (Auto) Urine Creatinine 03/10/20 03/10/20 03/10/20 11:15 17:58 23:36 WBC RBC Hgb Hct MCHC RDW MCV MCH Lymph % (Auto) [place] % (Auto) [place] # Eos # Lymph # (Auto) [place] # (Auto) Eos # (Auto) Seg Neutrophils % Seg Neuts % (Manual) Baso # (Auto) Lymphocytes % (Manual) Monocytes % (Manual) Eosinophils % (Manual) Basophils % (Manual) Seg Neutrophils # Seg Neutrophils # Man Lymphocytes # (Manual) Monocytes # (Manual) Eosinophils # (Manual) Nucleated RBC % Basophils # (Manual) PT INR APTT Heparin Anti-Xa Level ABG pH POC ABG pO2 ABG pO2 ABG HCO3 ABG O2 Saturation ABG Base Excess POC ABG pCO2 ABG Hemoglobin ABG Oxyhemoglobin ABG Sodium ABG Chloride ABG Glucose Oxyhemoglobin Sodium Potassium Chloride Carbon Dioxide BUN Creatinine Glucose POC Glucose 141 H 149 H 148 H Lactic Acid Calcium Phosphorus Magnesium AST ALT Lactate Dehydrogenase Total Bilirubin Direct Bilirubin CK-MB (CK-2) C-Reactive Protein NT-Pro-B Natriuret Pep Total Protein Albumin Arterial Blood Glucose Urine WBC (Auto) Urine Creatinine 03/11/20 03/11/20 03/12/20 05:55 17:43 04:45 WBC RBC Hgb Hct MCHC RDW MCV MCH Lymph % (Auto) [place] % (Auto) [place] # Eos # Lymph # (Auto) [place] # (Auto) Eos # (Auto) Seg Neutrophils % Seg Neuts % (Manual) Baso # (Auto) Lymphocytes % (Manual) Monocytes % (Manual) Eosinophils % (Manual) Basophils % (Manual) Seg Neutrophils # Seg Neutrophils # Man Lymphocytes # (Manual) Monocytes # (Manual) Eosinophils # (Manual) Nucleated RBC % Basophils # (Manual) PT INR APTT Heparin Anti-Xa Level ABG pH 7.454 H POC ABG pO2 69.2 L ABG pO2 ABG HCO3 ABG O2 Saturation ABG Base Excess POC ABG pCO2 ABG Hemoglobin 11.2 L ABG Oxyhemoglobin ABG Sodium 134.7 L ABG Chloride ABG Glucose 151 H Oxyhemoglobin Sodium Potassium Chloride Carbon Dioxide BUN Creatinine Glucose POC Glucose 181 H 107 H Lactic Acid Calcium Phosphorus Magnesium AST ALT Lactate Dehydrogenase Total Bilirubin Direct Bilirubin CK-MB (CK-2) C-Reactive Protein NT-Pro-B Natriuret Pep Total Protein Albumin Arterial Blood Glucose 151 H Urine WBC (Auto) Urine Creatinine 03/12/20 03/12/20 03/12/20 05:36 11:36 17:40 WBC RBC Hgb Hct MCHC RDW MCV MCH Lymph % (Auto) [place] % (Auto) [place] # Eos # Lymph # (Auto) [place] # (Auto) Eos # (Auto) Seg Neutrophils % Seg Neuts % (Manual) Baso # (Auto) Lymphocytes % (Manual) Monocytes % (Manual) Eosinophils % (Manual) Basophils % (Manual) Seg Neutrophils # Seg Neutrophils # Man Lymphocytes # (Manual) Monocytes # (Manual) Eosinophils # (Manual) Nucleated RBC % Basophils # (Manual) PT INR APTT Heparin Anti-Xa Level ABG pH POC ABG pO2 ABG pO2 ABG HCO3 ABG O2 Saturation ABG Base Excess POC ABG pCO2 ABG Hemoglobin ABG Oxyhemoglobin ABG Sodium ABG Chloride ABG Glucose Oxyhemoglobin Sodium Potassium Chloride Carbon Dioxide BUN Creatinine Glucose POC Glucose 137 H 122 H 116 H Lactic Acid Calcium Phosphorus Magnesium AST ALT Lactate Dehydrogenase Total Bilirubin Direct Bilirubin CK-MB (CK-2) C-Reactive Protein NT-Pro-B Natriuret Pep Total Protein Albumin Arterial Blood Glucose Urine WBC (Auto) Urine Creatinine 03/12/20 03/13/20 03/13/20 23:17 05:47 11:35 WBC RBC Hgb Hct MCHC RDW MCV MCH Lymph % (Auto) [place] % (Auto) [place] # Eos # Lymph # (Auto) [place] # (Auto) Eos # (Auto) Seg Neutrophils % Seg Neuts % (Manual) Baso # (Auto) Lymphocytes % (Manual) Monocytes % (Manual) Eosinophils % (Manual) Basophils % (Manual) Seg Neutrophils # Seg Neutrophils # Man Lymphocytes # (Manual) Monocytes # (Manual) Eosinophils # (Manual) Nucleated RBC % Basophils # (Manual) PT INR APTT Heparin Anti-Xa Level ABG pH POC ABG pO2 ABG pO2 ABG HCO3 ABG O2 Saturation ABG Base Excess POC ABG pCO2 ABG Hemoglobin ABG Oxyhemoglobin ABG Sodium ABG Chloride ABG Glucose Oxyhemoglobin Sodium Potassium Chloride Carbon Dioxide BUN Creatinine Glucose POC Glucose 118 H 142 H 146 H Lactic Acid Calcium Phosphorus Magnesium AST ALT Lactate Dehydrogenase Total Bilirubin Direct Bilirubin CK-MB (CK-2) C-Reactive Protein NT-Pro-B Natriuret Pep Total Protein Albumin Arterial Blood Glucose Urine WBC (Auto) Urine Creatinine 03/13/20 03/13/20 03/14/20 17:25 23:27 05:04 WBC RBC Hgb Hct MCHC RDW MCV MCH Lymph % (Auto) [place] % (Auto) [place] # Eos # Lymph # (Auto) [place] # (Auto) Eos # (Auto) Seg Neutrophils % Seg Neuts % (Manual) Baso # (Auto) Lymphocytes % (Manual) Monocytes % (Manual) Eosinophils % (Manual) Basophils % (Manual) Seg Neutrophils # Seg Neutrophils # Man Lymphocytes # (Manual) Monocytes # (Manual) Eosinophils # (Manual) Nucleated RBC % Basophils # (Manual) PT INR APTT Heparin Anti-Xa Level ABG pH POC ABG pO2 ABG pO2 ABG HCO3 ABG O2 Saturation ABG Base Excess POC ABG pCO2 ABG Hemoglobin ABG Oxyhemoglobin ABG Sodium ABG Chloride ABG Glucose Oxyhemoglobin Sodium Potassium Chloride Carbon Dioxide BUN Creatinine Glucose POC Glucose 138 H 160 H 159 H Lactic Acid Calcium Phosphorus Magnesium AST ALT Lactate Dehydrogenase Total Bilirubin Direct Bilirubin CK-MB (CK-2) C-Reactive Protein NT-Pro-B Natriuret Pep Total Protein Albumin Arterial Blood Glucose Urine WBC (Auto) Urine Creatinine 03/14/20 11:19 WBC RBC Hgb Hct MCHC RDW MCV MCH Lymph % (Auto) [place] % (Auto) [place] # Eos # Lymph # (Auto) [place] # (Auto) Eos # (Auto) Seg Neutrophils % Seg Neuts % (Manual) Baso # (Auto) Lymphocytes % (Manual) Monocytes % (Manual) Eosinophils % (Manual) Basophils % (Manual) Seg Neutrophils # Seg Neutrophils # Man Lymphocytes # (Manual) Monocytes # (Manual) Eosinophils # (Manual) Nucleated RBC % Basophils # (Manual) PT INR APTT Heparin Anti-Xa Level ABG pH POC ABG pO2 ABG pO2 ABG HCO3 ABG O2 Saturation ABG Base Excess POC ABG pCO2 ABG Hemoglobin ABG Oxyhemoglobin ABG Sodium ABG Chloride ABG Glucose Oxyhemoglobin Sodium Potassium Chloride Carbon Dioxide BUN Creatinine Glucose POC Glucose 130 H Lactic Acid Calcium Phosphorus Magnesium AST ALT Lactate Dehydrogenase Total Bilirubin Direct Bilirubin CK-MB (CK-2) C-Reactive Protein NT-Pro-B Natriuret Pep Total Protein Albumin Arterial Blood Glucose Urine WBC (Auto) Urine Creatinine Chest x-ray: report reviewed, image reviewed Additional Studies: CHEST 1 VIEW 03/10/20 INDICATION: Respiratory failure. COMPARISON: 03/01/2020 FINDINGS: Support devices: Tracheostomy remains in good position. Heart: Stable borderline heart size. Lungs/Pleura: Moderate pulmonary venous congestion, small to medium right pleural effusion and trace left pleural effusion are identified. These appear slightly increased since the previous exam. Additional findings: None. IMPRESSION: Mild CHF. Allied health notes reviewed: RT
[2020-03-14] MEDS: DIGOXIN 0.125 MG TAB PO SCH (16:53)
[2020-03-14] MEDS: TAMSULOSIN 0.4 MG CAP PO SCH (21:41)
[2020-03-14] MEDS: POLYETHYLENE GLYCOL 3350 17 GM POWDER PO SCH (21:42)
[2020-03-15 05:41] LABS: Basophils % (Auto) 0.6 % (0.0-1.8); Eosinophils # (Auto) 0.2 K/mm3 (0.0-0.4); Eosinophils % (Auto) 2.8 % (0.0-4.3); Hematocrit 31.6 % (35.5-45.6); Lymphocytes # (Auto) 2.2 K/mm3 (1.2-5.4); Lymphocytes % (Auto) 36.2 % (13.4-35.0); Mean Corpuscular HGB Conc 32 % (32-34); Mean Corpuscular Volume 77 fl (84-94); Monocytes # (Auto) 0.6 K/mm3 (0.0-0.8); Monocytes % (Auto) 9.4 % (0.0-7.3); Platelet Count 205 K/mm3 (140-440); Red Blood Count 4.09 M/mm3 (3.65-5.03)
[2020-03-15 05:45] LABS: Red Cell Distribution Width 22.4 % (13.2-15.2)
[2020-03-15 05:57] LABS: Blood Urea Nitrogen 17 mg/dL (9-20); Hemolysis Index 0
[2020-03-15 05:58] LABS: BUN/Creatinine Ratio 34
[2020-03-15] MEDS: LANSOPRAZOLE 30 MG SOLUTAB FEEDTUBE SCH (09:18)
[2020-03-15] MEDS: GLYCOPYRROLATE 2 MG TAB PO SCH ×3 (09:18→22:49)
[2020-03-15] MEDS: CLOPIDOGREL 75 MG TAB PO SCH (09:18)
[2020-03-15] MEDS: APIXABAN 5 MG TAB PO SCH ×2 (09:18→22:51)
[2020-03-15] MEDS: QUEtiapine 100 MG TAB PO SCH ×2 (09:18→22:53)
[2020-03-15] MEDS: MIDODRINE 5 MG TAB PO SCH ×3 (09:18→16:41)
[2020-03-15] MEDS: DOCUSATE SODIUM 100 MG/10 ML ORAL LIQD FEEDTUBE SCH ×2 (09:18→22:50)
[2020-03-15] MEDS: METOPROLOL TARTRATE 25 MG TAB FEEDTUBE SCH ×2 (09:19→22:53)
--- NOTE | 2020-03-15 10:17 | Progress Note ---
Assessment and Plan Patient admitted for acute hypoxic respiratory failure, S/P tracheostomy.Patient sleeping. Resting on assist control mechanical ventilation, rate 12 , Tidal volume 450, FIO2 30%, PEEP 6 and O2 saturation running 100%. No change in patients general condition from yesterday. ABG FIO2 30%. ABG pH 7.454 (7.320-7.450) H 03/12/20 04:45 POC ABG pCO2 45.6 mmHg (32.0-48.0) 03/12/20 04:45 ABG pCO2 47.8 mm Hg 02/20/20 06:45 POC ABG pO2 69.2 mmHg (83-108) L 03/12/20 04:45 ABG pO2 88.7 mm Hg (80.0-90.0) 02/20/20 06:45 POC ABG HCO3 31.3 03/12/20 04:45 ABG O2 Saturation 97.2 % (95.0-99.0) 02/20/20 06:45 Recommend spontaneous breathing trials. Patient afebrile. No leukocytosis. Chest xray done 03/10/20reported Mild CHF. Patient is on Apixaban and prevacid. I spent critical care time of 35 minutes on this patient review the chart, obtain history , examining the patient, review chest xray, labs, talking to the nursing staff and respiratory therapy and work out plan of treatment un this critically ill patient. - Patient Problems (1) Acute respiratory failure Current Visit: Yes Status: Acute Plan to address problem: Patient is on mechanical ventilation assist control , rate 12, Tidal volume 450, FIO2 30%, PEEP 6. Albuterol/atrovent aerosol treatments. Continue apixaban Continue prevacid. Recommend spontaneous breathing trials. (2) COPD exacerbation Current Visit: No Status: Acute Plan to address problem: Patient is on mechanical ventilation assist control , rate 12, Tidal volume 450, FIO2 30%, PEEP 6. Albuterol/atrovent aerosol treatments. Continue apixaban Continue prevacid. Recommend spontaneous breathing trials. (3) Bilateral pneumonia Current Visit: Yes Status: Acute Plan to address problem: Chest xray 03/10/20 reported CHF Patient afebrile. No leukocytosis. (4) CHF exacerbation Current Visit: Yes Status: Acute Plan to address problem: Management as per cardiology. (5) Cardiomyopathy Current Visit: Yes Status: Acute Plan to address problem: Management as per cardiology. (6) Pancreatic lesion Current Visit: Yes Status: Acute Plan to address problem: Management as per primary care. (7) Paroxysmal atrial fibrillation Current Visit: Yes Status: Acute Plan to address problem: Patient is on apixaban. Management as per cardiology. (8) CVA (cerebral vascular accident) Current Visit: No Status: Acute Qualifiers: Precerebral and cerebral artery: middle cerebral artery Laterality of affected vessel: right Plan to address problem: Management as per primary care. (9) Cocaine dependence Current Visit: No Status: Acute Plan to address problem: Management as per primary care. (10) HTN (hypertension) Current Visit: No Status: Acute Qualifiers: Hypertension type: essential hypertension Qualified Code(s): I10 - Essential (primary) hypertension Plan to address problem: Management as per primary care. (11) Nicotine dependence Current Visit: No Status: Acute Qualifiers: Nicotine product type: cigarettes Substance use status: in withdrawal Qualified Code(s): F17.213 - Nicotine dependence, cigarettes, with withdrawal Plan to address problem: Counseled to stop smoking. (12) Obesity hypoventilation syndrome Current Visit: No Status: Acute Plan to address problem: Patient S/P tracheostomy and on mechanical ventilation. Subjective Date of service: 03/15/20 Principal diagnosis: Ac hypoxemic resp failure; Pneumonia; PUI COVID-19; CHF; COPD; HTN Interval history: Patient admitted for acute hypoxic respiratory failure, S/P tracheostomy.Patient sleeping. Resting on assist control mechanical ventilation, rate 12 , Tidal volume 450, FIO2 30%, PEEP 6 and O2 saturation running 100%. No change in patients general condition from yesterday. ABG FIO2 30%. ABG pH 7.454 (7.320-7.450) H 03/12/20 04:45 POC ABG pCO2 45.6 mmHg (32.0-48.0) 03/12/20 04:45 ABG pCO2 47.8 mm Hg 02/20/20 06:45 POC ABG pO2 69.2 mmHg (83-108) L 03/12/20 04:45 ABG pO2 88.7 mm Hg (80.0-90.0) 02/20/20 06:45 POC ABG HCO3 31.3 03/12/20 04:45 ABG O2 Saturation 97.2 % (95.0-99.0) 02/20/20 06:45 Recommend spontaneous breathing trials. Patient afebrile. No leukocytosis. Chest xray done 03/10/20reported Mild CHF. Patient is on Apixaban and prevacid. Objective Vital Signs - 12hr 03/14/20 03/14/20 03/15/20 23:00 23:38 00:00 Temperature 98.4 F Pulse Rate 126 H 127 H 124 H Pulse Rate [ 119 H From Monitor] Respiratory 16 17 Rate Blood Pressure 103/70 103/70 96/73 O2 Sat by Pulse 100 99 99 Oximetry O2 Sat by Pulse Oximetry [ Assessment] 03/15/20 03/15/20 03/15/20 01:00 02:00 03:00 Temperature Pulse Rate 109 H 116 H 117 H Pulse Rate [ From Monitor] Respiratory 18 18 18 Rate Blood Pressure 96/73 109/83 96/74 O2 Sat by Pulse 100 99 99 Oximetry O2 Sat by Pulse Oximetry [ Assessment] 03/15/20 03/15/20 03/15/20 03:54 04:00 04:20 Temperature 98.2 F Pulse Rate 125 H 118 H Pulse Rate [ 125 H From Monitor] Respiratory 16 Rate Blood Pressure 91/72 104/75 O2 Sat by Pulse 100 100 Oximetry O2 Sat by Pulse Oximetry [ Assessment] 03/15/20 03/15/20 03/15/20 04:30 05:00 06:00 Temperature Pulse Rate 132 H 121 H Pulse Rate [ From Monitor] Respiratory 17 17 Rate Blood Pressure 112/82 112/82 O2 Sat by Pulse 96 99 Oximetry O2 Sat by Pulse 100 Oximetry [ Assessment] 03/15/20 03/15/20 03/15/20 07:00 07:49 08:00 Temperature 97.4 F L Pulse Rate 122 H 117 H 117 H Pulse Rate [ 106 H From Monitor] Respiratory 17 17 Rate Blood Pressure 117/90 126/94 126/94 O2 Sat by Pulse 99 100 99 Oximetry O2 Sat by Pulse Oximetry [ Assessment] 03/15/20 03/15/20 09:00 09:19 Temperature Pulse Rate 122 H 107 H Pulse Rate [ From Monitor] Respiratory 19 Rate Blood Pressure 94/72 94/72 O2 Sat by Pulse 100 Oximetry O2 Sat by Pulse Oximetry [ Assessment] Constitutional: no acute distress, asleep Eyes: non-icteric ENT: oropharynx moist, other (+ midline tracheostomy) Neck: supple, no JVD Effort: mildly labored Ascultation: Bilateral: diminished breath sounds, rhonchi, other (tracheal secretions ) Percussion: Bilateral: not dull Cardiovascular: irregular rhythm Gastrointestinal: normoactive bowel sounds, soft, non-tender, non-distended (protuberant), other (protuberant; PEG in place) Integumentary: normal Extremities: no cyanosis, pulses normal, no ischemia or petechiae, edema (bilateral lower) Neurologic: non-focal exam (moves extremities), pupils equal and round, other (intermittent agitation) Psychiatric: anxious CBC and BMP: 03/15/20 04:05 03/15/20 04:05 ABG, PT/INR, D-dimer: ABG ABG pH 7.454 (7.320-7.450) H 03/12/20 04:45 POC ABG pCO2 45.6 mmHg (32.0-48.0) 03/12/20 04:45 ABG pCO2 47.8 mm Hg 02/20/20 06:45 POC ABG pO2 69.2 mmHg (83-108) L 03/12/20 04:45 ABG pO2 88.7 mm Hg (80.0-90.0) 02/20/20 06:45 POC ABG HCO3 31.3 03/12/20 04:45 ABG O2 Saturation 97.2 % (95.0-99.0) 02/20/20 06:45 PT/INR, D-dimer PT 27.0 Sec. (12.2-14.9) H 02/07/20 15:03 INR 2.46 (0.87-1.13) H 02/07/20 15:03 Abnormal lab findings: Abnormal Labs 11/24/19 11/24/19 11/24/19 02:53 02:53 03:45 WBC 14.3 H RBC Hgb Hct MCHC RDW 17.2 H MCV MCH Lymph % (Auto) [place] % (Auto) [place] # Eos # Lymph # (Auto) [place] # (Auto) Eos # (Auto) Seg Neutrophils % Seg Neuts % (Manual) Baso # (Auto) Lymphocytes % (Manual) Monocytes % (Manual) Eosinophils % (Manual) Basophils % (Manual) Seg Neutrophils # Seg Neutrophils # Man 8.3 H Lymphocytes # (Manual) Monocytes # (Manual) 0.9 H Eosinophils # (Manual) Nucleated RBC % Basophils # (Manual) PT INR APTT Heparin Anti-Xa Level ABG pH 7.313 L POC ABG pO2 ABG pO2 102.8 H ABG HCO3 ABG O2 Saturation ABG Base Excess -2.9 L POC ABG pCO2 ABG Hemoglobin ABG Oxyhemoglobin ABG Sodium ABG Chloride ABG Glucose Oxyhemoglobin 93.9 L Sodium Potassium Chloride Carbon Dioxide BUN Creatinine Glucose 195 H POC Glucose Lactic Acid Calcium Phosphorus Magnesium AST ALT Lactate Dehydrogenase Total Bilirubin Direct Bilirubin CK-MB (CK-2) 4.3 H C-Reactive Protein NT-Pro-B Natriuret Pep 1181 H Total Protein Albumin Arterial Blood Glucose Urine WBC (Auto) Urine Creatinine 11/24/19 11/24/19 11/24/19 04:53 04:53 10:37 WBC RBC Hgb Hct MCHC RDW MCV MCH Lymph % (Auto) [place] % (Auto) [place] # Eos # Lymph # (Auto) [place] # (Auto) Eos # (Auto) Seg Neutrophils % Seg Neuts % (Manual) Baso # (Auto) Lymphocytes % (Manual) Monocytes % (Manual) Eosinophils % (Manual) Basophils % (Manual) Seg Neutrophils # Seg Neutrophils # Man Lymphocytes # (Manual) Monocytes # (Manual) Eosinophils # (Manual) Nucleated RBC % Basophils # (Manual) PT INR APTT Heparin Anti-Xa Level ABG pH POC ABG pO2 ABG pO2 ABG HCO3 ABG O2 Saturation ABG Base Excess POC ABG pCO2 ABG Hemoglobin ABG Oxyhemoglobin ABG Sodium ABG Chloride ABG Glucose Oxyhemoglobin Sodium Potassium Chloride Carbon Dioxide BUN Creatinine Glucose 162 H POC Glucose Lactic Acid 2.40 H* 2.50 H* Calcium Phosphorus Magnesium AST ALT Lactate Dehydrogenase 240 H Total Bilirubin Direct Bilirubin CK-MB (CK-2) C-Reactive Protein NT-Pro-B Natriuret Pep Total Protein Albumin Arterial Blood Glucose Urine WBC (Auto) Urine Creatinine 11/24/19 11/24/19 11/24/19 12:21 14:50 19:54 WBC RBC Hgb Hct MCHC RDW MCV MCH Lymph % (Auto) [place] % (Auto) [place] # Eos # Lymph # (Auto) [place] # (Auto) Eos # (Auto) Seg Neutrophils % Seg Neuts % (Manual) Baso # (Auto) Lymphocytes % (Manual) Monocytes % (Manual) Eosinophils % (Manual) Basophils % (Manual) Seg Neutrophils # Seg Neutrophils # Man Lymphocytes # (Manual) Monocytes # (Manual) Eosinophils # (Manual) Nucleated RBC % Basophils # (Manual) PT INR APTT Heparin Anti-Xa Level ABG pH POC ABG pO2 ABG pO2 ABG HCO3 ABG O2 Saturation ABG Base Excess POC ABG pCO2 ABG Hemoglobin ABG Oxyhemoglobin ABG Sodium ABG Chloride ABG Glucose Oxyhemoglobin Sodium Potassium Chloride Carbon Dioxide BUN Creatinine Glucose POC Glucose 145 H 143 H 124 H Lactic Acid Calcium Phosphorus Magnesium AST ALT Lactate Dehydrogenase Total Bilirubin Direct Bilirubin CK-MB (CK-2) C-Reactive Protein NT-Pro-B Natriuret Pep Total Protein Albumin Arterial Blood Glucose Urine WBC (Auto) Urine Creatinine 11/25/19 11/25/19 11/25/19 00:18 03:18 05:11 WBC 13.7 H RBC Hgb Hct MCHC RDW 17.1 H MCV MCH Lymph % (Auto) 10.8 L [place] % (Auto) 8.7 H [place] # 1.2 H Eos # Lymph # (Auto) [place] # (Auto) Eos # (Auto) Seg Neutrophils % 80.2 H Seg Neuts % (Manual) Baso # (Auto) Lymphocytes % (Manual) Monocytes % (Manual) Eosinophils % (Manual) Basophils % (Manual) Seg Neutrophils # 11.0 H Seg Neutrophils # Man Lymphocytes # (Manual) Monocytes # (Manual) Eosinophils # (Manual) Nucleated RBC % Basophils # (Manual) PT INR APTT Heparin Anti-Xa Level ABG pH 7.333 L POC ABG pO2 ABG pO2 61.2 L ABG HCO3 ABG O2 Saturation 90.2 L ABG Base Excess POC ABG pCO2 ABG Hemoglobin 13.7 L ABG Oxyhemoglobin ABG Sodium ABG Chloride ABG Glucose Oxyhemoglobin 88.2 L Sodium Potassium Chloride Carbon Dioxide BUN Creatinine Glucose POC Glucose 109 H Lactic Acid Calcium Phosphorus Magnesium AST ALT Lactate Dehydrogenase Total Bilirubin Direct Bilirubin CK-MB (CK-2) C-Reactive Protein NT-Pro-B Natriuret Pep Total Protein Albumin Arterial Blood Glucose Urine WBC (Auto) Urine Creatinine 11/25/19 11/25/19 11/26/19 05:11 11:40 03:12 WBC RBC Hgb Hct MCHC RDW MCV MCH Lymph % (Auto) [place] % (Auto) [place] # Eos # Lymph # (Auto) [place] # (Auto) Eos # (Auto) Seg Neutrophils % Seg Neuts % (Manual) Baso # (Auto) Lymphocytes % (Manual) Monocytes % (Manual) Eosinophils % (Manual) Basophils % (Manual) Seg Neutrophils # Seg Neutrophils # Man Lymphocytes # (Manual) Monocytes # (Manual) Eosinophils # (Manual) Nucleated RBC % Basophils # (Manual) PT INR APTT Heparin Anti-Xa Level ABG pH POC ABG pO2 ABG pO2 155.1 H ABG HCO3 27.8 H ABG O2 Saturation ABG Base Excess POC ABG pCO2 ABG Hemoglobin 12.2 L ABG Oxyhemoglobin ABG Sodium ABG Chloride ABG Glucose Oxyhemoglobin Sodium Potassium Chloride Carbon Dioxide BUN 23 H Creatinine Glucose 110 H POC Glucose 108 H Lactic Acid Calcium Phosphorus Magnesium AST ALT Lactate Dehydrogenase Total Bilirubin Direct Bilirubin CK-MB (CK-2) C-Reactive Protein NT-Pro-B Natriuret Pep Total Protein Albumin Arterial Blood Glucose Urine WBC (Auto) Urine Creatinine 11/26/19 11/26/19 11/26/19 06:17 10:43 10:43 WBC 11.4 H RBC Hgb Hct MCHC RDW 17.1 H MCV MCH Lymph % (Auto) [place] % (Auto) [place] # Eos # Lymph # (Auto) [place] # (Auto) Eos # (Auto) Seg Neutrophils % Seg Neuts % (Manual) Baso # (Auto) Lymphocytes % (Manual) Monocytes % (Manual) Eosinophils % (Manual) Basophils % (Manual) Seg Neutrophils # Seg Neutrophils # Man Lymphocytes # (Manual) Monocytes # (Manual) Eosinophils # (Manual) Nucleated RBC % Basophils # (Manual) PT INR APTT Heparin Anti-Xa Level ABG pH POC ABG pO2 ABG pO2 ABG HCO3 ABG O2 Saturation ABG Base Excess POC ABG pCO2 ABG Hemoglobin ABG Oxyhemoglobin ABG Sodium ABG Chloride ABG Glucose Oxyhemoglobin Sodium Potassium Chloride Carbon Dioxide BUN 29 H Creatinine Glucose POC Glucose 107 H Lactic Acid Calcium Phosphorus Magnesium AST ALT Lactate Dehydrogenase Total Bilirubin Direct Bilirubin CK-MB (CK-2) C-Reactive Protein NT-Pro-B Natriuret Pep Total Protein Albumin Arterial Blood Glucose Urine WBC (Auto) Urine Creatinine 11/26/19 11/27/19 11/27/19 17:11 01:53 04:11 WBC RBC Hgb Hct MCHC RDW MCV MCH Lymph % (Auto) [place] % (Auto) [place] # Eos # Lymph # (Auto) [place] # (Auto) Eos # (Auto) Seg Neutrophils % Seg Neuts % (Manual) Baso # (Auto) Lymphocytes % (Manual) Monocytes % (Manual) Eosinophils % (Manual) Basophils % (Manual) Seg Neutrophils # Seg Neutrophils # Man Lymphocytes # (Manual) Monocytes # (Manual) Eosinophils # (Manual) Nucleated RBC % Basophils # (Manual) PT INR APTT Heparin Anti-Xa Level ABG pH POC ABG pO2 ABG pO2 ABG HCO3 29.2 H ABG O2 Saturation ABG Base Excess 3.4 H POC ABG pCO2 ABG Hemoglobin 13.3 L ABG Oxyhemoglobin ABG Sodium ABG Chloride ABG Glucose Oxyhemoglobin 94.5 L Sodium Potassium Chloride Carbon Dioxide BUN Creatinine Glucose POC Glucose 113 H 108 H Lactic Acid Calcium Phosphorus Magnesium AST ALT Lactate Dehydrogenase Total Bilirubin Direct Bilirubin CK-MB (CK-2) C-Reactive Protein NT-Pro-B Natriuret Pep Total Protein Albumin Arterial Blood Glucose Urine WBC (Auto) Urine Creatinine 11/27/19 11/28/19 11/28/19 05:27 05:00 05:25 WBC RBC Hgb Hct MCHC RDW MCV MCH Lymph % (Auto) [place] % (Auto) [place] # Eos # Lymph # (Auto) [place] # (Auto) Eos # (Auto) Seg Neutrophils % Seg Neuts % (Manual) Baso # (Auto) Lymphocytes % (Manual) Monocytes % (Manual) Eosinophils % (Manual) Basophils % (Manual) Seg Neutrophils # Seg Neutrophils # Man Lymphocytes # (Manual) Monocytes # (Manual) Eosinophils # (Manual) Nucleated RBC % Basophils # (Manual) PT INR APTT Heparin Anti-Xa Level ABG pH POC ABG pO2 68.1 L ABG pO2 ABG HCO3 ABG O2 Saturation ABG Base Excess POC ABG pCO2 ABG Hemoglobin ABG Oxyhemoglobin 91.2 L ABG Sodium ABG Chloride ABG Glucose Oxyhemoglobin Sodium Potassium Chloride Carbon Dioxide BUN Creatinine Glucose POC Glucose 111 H 110 H Lactic Acid Calcium Phosphorus Magnesium AST ALT Lactate Dehydrogenase Total Bilirubin Direct Bilirubin CK-MB (CK-2) C-Reactive Protein NT-Pro-B Natriuret Pep Total Protein Albumin Arterial Blood Glucose Urine WBC (Auto) Urine Creatinine 11/28/19 11/28/19 11/28/19 12:08 13:47 13:47 WBC 11.3 H RBC Hgb Hct MCHC RDW 16.1 H MCV MCH Lymph % (Auto) [place] % (Auto) 9.9 H [place] # 1.1 H Eos # Lymph # (Auto) [place] # (Auto) Eos # (Auto) Seg Neutrophils % 71.4 H Seg Neuts % (Manual) Baso # (Auto) Lymphocytes % (Manual) Monocytes % (Manual) Eosinophils % (Manual) Basophils % (Manual) Seg Neutrophils # 8.1 H Seg Neutrophils # Man Lymphocytes # (Manual) Monocytes # (Manual) Eosinophils # (Manual) Nucleated RBC % Basophils # (Manual) PT INR APTT Heparin Anti-Xa Level ABG pH POC ABG pO2 ABG pO2 ABG HCO3 ABG O2 Saturation ABG Base Excess POC ABG pCO2 ABG Hemoglobin ABG Oxyhemoglobin ABG Sodium ABG Chloride ABG Glucose Oxyhemoglobin Sodium Potassium Chloride Carbon Dioxide BUN 23 H Creatinine Glucose 123 H POC Glucose 112 H Lactic Acid Calcium Phosphorus Magnesium AST ALT Lactate Dehydrogenase Total Bilirubin Direct Bilirubin CK-MB (CK-2) C-Reactive Protein NT-Pro-B Natriuret Pep Total Protein Albumin 3.7 L Arterial Blood Glucose Urine WBC (Auto) Urine Creatinine 11/28/19 11/29/19 11/29/19 17:26 03:55 17:04 WBC RBC Hgb Hct MCHC RDW MCV MCH Lymph % (Auto) [place] % (Auto) [place] # Eos # Lymph # (Auto) [place] # (Auto) Eos # (Auto) Seg Neutrophils % Seg Neuts % (Manual) Baso # (Auto) Lymphocytes % (Manual) Monocytes % (Manual) Eosinophils % (Manual) Basophils % (Manual) Seg Neutrophils # Seg Neutrophils # Man Lymphocytes # (Manual) Monocytes # (Manual) Eosinophils # (Manual) Nucleated RBC % Basophils # (Manual) PT INR APTT Heparin Anti-Xa Level ABG pH POC ABG pO2 ABG pO2 65.7 L ABG HCO3 28.3 H ABG O2 Saturation 93.9 L ABG Base Excess 3.6 H POC ABG pCO2 ABG Hemoglobin 13.3 L ABG Oxyhemoglobin ABG Sodium ABG Chloride ABG Glucose Oxyhemoglobin 91.5 L Sodium Potassium Chloride Carbon Dioxide BUN Creatinine Glucose POC Glucose 123 H 119 H Lactic Acid Calcium Phosphorus Magnesium AST ALT Lactate Dehydrogenase Total Bilirubin Direct Bilirubin CK-MB (CK-2) C-Reactive Protein NT-Pro-B Natriuret Pep Total Protein Albumin Arterial Blood Glucose Urine WBC (Auto) Urine Creatinine 11/30/19 11/30/19 11/30/19 04:17 04:17 04:56 WBC 13.4 H RBC Hgb Hct MCHC RDW 15.6 H MCV MCH Lymph % (Auto) [place] % (Auto) [place] # Eos # Lymph # (Auto) [place] # (Auto) Eos # (Auto) Seg Neutrophils % Seg Neuts % (Manual) Baso # (Auto) Lymphocytes % (Manual) Monocytes % (Manual) Eosinophils % (Manual) Basophils % (Manual) Seg Neutrophils # Seg Neutrophils # Man Lymphocytes # (Manual) Monocytes # (Manual) Eosinophils # (Manual) Nucleated RBC % Basophils # (Manual) PT INR APTT Heparin Anti-Xa Level ABG pH POC ABG pO2 ABG pO2 56.3 L ABG HCO3 29.3 H ABG O2 Saturation 91.5 L ABG Base Excess 4.7 H POC ABG pCO2 ABG Hemoglobin 12.1 L ABG Oxyhemoglobin ABG Sodium ABG Chloride ABG Glucose Oxyhemoglobin 89.2 L Sodium 147 H Potassium Chloride Carbon Dioxide BUN 30 H Creatinine Glucose 124 H POC Glucose Lactic Acid Calcium Phosphorus Magnesium AST ALT Lactate Dehydrogenase Total Bilirubin Direct Bilirubin CK-MB (CK-2) C-Reactive Protein NT-Pro-B Natriuret Pep Total Protein Albumin 3.8 L Arterial Blood Glucose Urine WBC (Auto) Urine Creatinine 11/30/19 11/30/19 11/30/19 05:51 11:54 18:17 WBC RBC Hgb Hct MCHC RDW MCV MCH Lymph % (Auto) [place] % (Auto) [place] # Eos # Lymph # (Auto) [place] # (Auto) Eos # (Auto) Seg Neutrophils % Seg Neuts % (Manual) Baso # (Auto) Lymphocytes % (Manual) Monocytes % (Manual) Eosinophils % (Manual) Basophils % (Manual) Seg Neutrophils # Seg Neutrophils # Man Lymphocytes # (Manual) Monocytes # (Manual) Eosinophils # (Manual) Nucleated RBC % Basophils # (Manual) PT INR APTT Heparin Anti-Xa Level ABG pH POC ABG pO2 ABG pO2 ABG HCO3 ABG O2 Saturation ABG Base Excess POC ABG pCO2 ABG Hemoglobin ABG Oxyhemoglobin ABG Sodium ABG Chloride ABG Glucose Oxyhemoglobin Sodium Potassium Chloride Carbon Dioxide BUN Creatinine Glucose POC Glucose 127 H 115 H 143 H Lactic Acid Calcium Phosphorus Magnesium AST ALT Lactate Dehydrogenase Total Bilirubin Direct Bilirubin CK-MB (CK-2) C-Reactive Protein NT-Pro-B Natriuret Pep Total Protein Albumin Arterial Blood Glucose Urine WBC (Auto) Urine Creatinine 12/01/19 12/01/19 12/01/19 01:18 05:22 12:16 WBC RBC Hgb Hct MCHC RDW MCV MCH Lymph % (Auto) [place] % (Auto) [place] # Eos # Lymph # (Auto) [place] # (Auto) Eos # (Auto) Seg Neutrophils % Seg Neuts % (Manual) Baso # (Auto) Lymphocytes % (Manual) Monocytes % (Manual) Eosinophils % (Manual) Basophils % (Manual) Seg Neutrophils # Seg Neutrophils # Man Lymphocytes # (Manual) Monocytes # (Manual) Eosinophils # (Manual) Nucleated RBC % Basophils # (Manual) PT INR APTT Heparin Anti-Xa Level ABG pH POC ABG pO2 ABG pO2 ABG HCO3 ABG O2 Saturation ABG Base Excess POC ABG pCO2 ABG Hemoglobin ABG Oxyhemoglobin ABG Sodium ABG Chloride ABG Glucose Oxyhemoglobin Sodium Potassium 3.5 L Chloride 107.8 H Carbon Dioxide BUN 37 H Creatinine Glucose 157 H POC Glucose 118 H 148 H Lactic Acid Calcium 8.2 L D Phosphorus Magnesium AST 48 H ALT 60 H Lactate Dehydrogenase 194 H Total Bilirubin Direct Bilirubin CK-MB (CK-2) C-Reactive Protein 8.50 H NT-Pro-B Natriuret Pep Total Protein 5.5 L Albumin 2.8 L Arterial Blood Glucose Urine WBC (Auto) Urine Creatinine 12/01/19 12/02/19 12/02/19 18:04 00:05 05:16 WBC 11.4 H RBC Hgb Hct MCHC RDW 15.9 H MCV MCH Lymph % (Auto) [place] % (Auto) 9.9 H [place] # 1.1 H Eos # Lymph # (Auto) [place] # (Auto) Eos # (Auto) Seg Neutrophils % 70.3 H Seg Neuts % (Manual) Baso # (Auto) Lymphocytes % (Manual) Monocytes % (Manual) Eosinophils % (Manual) Basophils % (Manual) Seg Neutrophils # 8.0 H Seg Neutrophils # Man Lymphocytes # (Manual) Monocytes # (Manual) Eosinophils # (Manual) Nucleated RBC % Basophils # (Manual) PT INR APTT Heparin Anti-Xa Level ABG pH POC ABG pO2 ABG pO2 ABG HCO3 ABG O2 Saturation ABG Base Excess POC ABG pCO2 ABG Hemoglobin ABG Oxyhemoglobin ABG Sodium ABG Chloride ABG Glucose Oxyhemoglobin Sodium Potassium Chloride Carbon Dioxide BUN Creatinine Glucose POC Glucose 143 H 107 H Lactic Acid Calcium Phosphorus Magnesium AST ALT Lactate Dehydrogenase Total Bilirubin Direct Bilirubin CK-MB (CK-2) C-Reactive Protein NT-Pro-B Natriuret Pep Total Protein Albumin Arterial Blood Glucose Urine WBC (Auto) Urine Creatinine 12/02/19 12/02/19 12/02/19 05:16 06:03 11:52 WBC RBC Hgb Hct MCHC RDW MCV MCH Lymph % (Auto) [place] % (Auto) [place] # Eos # Lymph # (Auto) [place] # (Auto) Eos # (Auto) Seg Neutrophils % Seg Neuts % (Manual) Baso # (Auto) Lymphocytes % (Manual) Monocytes % (Manual) Eosinophils % (Manual) Basophils % (Manual) Seg Neutrophils # Seg Neutrophils # Man Lymphocytes # (Manual) Monocytes # (Manual) Eosinophils # (Manual) Nucleated RBC % Basophils # (Manual) PT INR APTT Heparin Anti-Xa Level ABG pH POC ABG pO2 ABG pO2 ABG HCO3 ABG O2 Saturation ABG Base Excess POC ABG pCO2 ABG Hemoglobin ABG Oxyhemoglobin ABG Sodium ABG Chloride ABG Glucose Oxyhemoglobin Sodium 146 H Potassium Chloride Carbon Dioxide BUN 28 H Creatinine Glucose 123 H POC Glucose 110 H 152 H Lactic Acid Calcium Phosphorus Magnesium AST ALT Lactate Dehydrogenase Total Bilirubin Direct Bilirubin CK-MB (CK-2) C-Reactive Protein NT-Pro-B Natriuret Pep Total Protein Albumin Arterial Blood Glucose Urine WBC (Auto) Urine Creatinine 12/02/19 12/02/19 12/02/19 12:58 17:58 23:36 WBC RBC Hgb Hct MCHC RDW MCV MCH Lymph % (Auto) [place] % (Auto) [place] # Eos # Lymph # (Auto) [place] # (Auto) Eos # (Auto) Seg Neutrophils % Seg Neuts % (Manual) Baso # (Auto) Lymphocytes % (Manual) Monocytes % (Manual) Eosinophils % (Manual) Basophils % (Manual) Seg Neutrophils # Seg Neutrophils # Man Lymphocytes # (Manual) Monocytes # (Manual) Eosinophils # (Manual) Nucleated RBC % Basophils # (Manual) PT INR APTT Heparin Anti-Xa Level ABG pH POC ABG pO2 78.1 L ABG pO2 ABG HCO3 ABG O2 Saturation ABG Base Excess POC ABG pCO2 ABG Hemoglobin ABG Oxyhemoglobin ABG Sodium ABG Chloride ABG Glucose Oxyhemoglobin Sodium Potassium Chloride Carbon Dioxide BUN Creatinine Glucose POC Glucose 120 H 123 H Lactic Acid Calcium Phosphorus Magnesium AST ALT Lactate Dehydrogenase Total Bilirubin Direct Bilirubin CK-MB (CK-2) C-Reactive Protein NT-Pro-B Natriuret Pep Total Protein Albumin Arterial Blood Glucose Urine WBC (Auto) Urine Creatinine 12/03/19 12/03/19 12/03/19 06:03 06:14 11:46 WBC RBC Hgb Hct MCHC RDW MCV MCH Lymph % (Auto) [place] % (Auto) [place] # Eos # Lymph # (Auto) [place] # (Auto) Eos # (Auto) Seg Neutrophils % Seg Neuts % (Manual) Baso # (Auto) Lymphocytes % (Manual) Monocytes % (Manual) Eosinophils % (Manual) Basophils % (Manual) Seg Neutrophils # Seg Neutrophils # Man Lymphocytes # (Manual) Monocytes # (Manual) Eosinophils # (Manual) Nucleated RBC % Basophils # (Manual) PT INR APTT Heparin Anti-Xa Level ABG pH POC ABG pO2 ABG pO2 ABG HCO3 ABG O2 Saturation ABG Base Excess POC ABG pCO2 ABG Hemoglobin ABG Oxyhemoglobin ABG Sodium ABG Chloride ABG Glucose Oxyhemoglobin Sodium Potassium Chloride Carbon Dioxide BUN Creatinine Glucose POC Glucose 142 H 130 H Lactic Acid Calcium Phosphorus Magnesium AST ALT Lactate Dehydrogenase Total Bilirubin Direct Bilirubin CK-MB (CK-2) C-Reactive Protein NT-Pro-B Natriuret Pep Total Protein Albumin Arterial Blood Glucose Urine WBC (Auto) 8.0 H Urine Creatinine 12/03/19 12/03/19 12/04/19 15:50 17:39 00:04 WBC RBC Hgb Hct MCHC RDW MCV MCH Lymph % (Auto) [place] % (Auto) [place] # Eos # Lymph # (Auto) [place] # (Auto) Eos # (Auto) Seg Neutrophils % Seg Neuts % (Manual) Baso # (Auto) Lymphocytes % (Manual) Monocytes % (Manual) Eosinophils % (Manual) Basophils % (Manual) Seg Neutrophils # Seg Neutrophils # Man Lymphocytes # (Manual) Monocytes # (Manual) Eosinophils # (Manual) Nucleated RBC % Basophils # (Manual) PT INR APTT Heparin Anti-Xa Level ABG pH POC ABG pO2 ABG pO2 ABG HCO3 ABG O2 Saturation ABG Base Excess POC ABG pCO2 ABG Hemoglobin ABG Oxyhemoglobin ABG Sodium ABG Chloride ABG Glucose Oxyhemoglobin Sodium Potassium Chloride Carbon Dioxide BUN Creatinine Glucose POC Glucose 146 H 133 H Lactic Acid Calcium Phosphorus 2.40 L Magnesium AST ALT Lactate Dehydrogenase Total Bilirubin Direct Bilirubin CK-MB (CK-2) C-Reactive Protein NT-Pro-B Natriuret Pep Total Protein Albumin Arterial Blood Glucose Urine WBC (Auto) Urine Creatinine 12/04/19 12/04/19 12/04/19 03:58 03:58 05:22 WBC 12.5 H RBC Hgb 11.2 L Hct 35.2 L MCHC RDW 16.0 H MCV MCH Lymph % (Auto) [place] % (Auto) 9.6 H [place] # 1.2 H Eos # 0.5 H Lymph # (Auto) [place] # (Auto) Eos # (Auto) Seg Neutrophils % Seg Neuts % (Manual) Baso # (Auto) Lymphocytes % (Manual) Monocytes % (Manual) Eosinophils % (Manual) Basophils % (Manual) Seg Neutrophils # 8.6 H Seg Neutrophils # Man Lymphocytes # (Manual) Monocytes # (Manual) Eosinophils # (Manual) Nucleated RBC % Basophils # (Manual) PT INR APTT Heparin Anti-Xa Level ABG pH POC ABG pO2 ABG pO2 ABG HCO3 ABG O2 Saturation ABG Base Excess POC ABG pCO2 ABG Hemoglobin ABG Oxyhemoglobin ABG Sodium ABG Chloride ABG Glucose Oxyhemoglobin Sodium 146 H Potassium Chloride 108.6 H Carbon Dioxide BUN 30 H Creatinine 0.7 L Glucose 121 H POC Glucose 132 H Lactic Acid Calcium Phosphorus Magnesium AST ALT Lactate Dehydrogenase Total Bilirubin Direct Bilirubin CK-MB (CK-2) C-Reactive Protein NT-Pro-B Natriuret Pep Total Protein Albumin Arterial Blood Glucose Urine WBC (Auto) Urine Creatinine 12/04/19 12/04/19 12/05/19 13:26 18:43 00:19 WBC RBC Hgb Hct MCHC RDW MCV MCH Lymph % (Auto) [place] % (Auto) [place] # Eos # Lymph # (Auto) [place] # (Auto) Eos # (Auto) Seg Neutrophils % Seg Neuts % (Manual) Baso # (Auto) Lymphocytes % (Manual) Monocytes % (Manual) Eosinophils % (Manual) Basophils % (Manual) Seg Neutrophils # Seg Neutrophils # Man Lymphocytes # (Manual) Monocytes # (Manual) Eosinophils # (Manual) Nucleated RBC % Basophils # (Manual) PT INR APTT Heparin Anti-Xa Level ABG pH POC ABG pO2 ABG pO2 ABG HCO3 ABG O2 Saturation ABG Base Excess POC ABG pCO2 ABG Hemoglobin ABG Oxyhemoglobin ABG Sodium ABG Chloride ABG Glucose Oxyhemoglobin Sodium Potassium Chloride Carbon Dioxide BUN Creatinine Glucose POC Glucose 185 H 156 H 150 H Lactic Acid Calcium Phosphorus Magnesium AST ALT Lactate Dehydrogenase Total Bilirubin Direct Bilirubin CK-MB (CK-2) C-Reactive Protein NT-Pro-B Natriuret Pep Total Protein Albumin Arterial Blood Glucose Urine WBC (Auto) Urine Creatinine 12/05/19 12/05/19 12/05/19 03:37 03:37 05:14 WBC 16.3 H RBC Hgb 11.4 L Hct MCHC RDW 15.6 H MCV MCH Lymph % (Auto) 9.9 L [place] % (Auto) 9.7 H [place] # 1.6 H Eos # Lymph # (Auto) [place] # (Auto) Eos # (Auto) Seg Neutrophils % 78.0 H Seg Neuts % (Manual) Baso # (Auto) Lymphocytes % (Manual) Monocytes % (Manual) Eosinophils % (Manual) Basophils % (Manual) Seg Neutrophils # 12.7 H Seg Neutrophils # Man Lymphocytes # (Manual) Monocytes # (Manual) Eosinophils # (Manual) Nucleated RBC % Basophils # (Manual) PT INR APTT Heparin Anti-Xa Level ABG pH POC ABG pO2 ABG pO2 ABG HCO3 ABG O2 Saturation ABG Base Excess POC ABG pCO2 ABG Hemoglobin ABG Oxyhemoglobin ABG Sodium ABG Chloride ABG Glucose Oxyhemoglobin Sodium 146 H Potassium Chloride 107.2 H Carbon Dioxide BUN 27 H Creatinine 0.7 L Glucose 171 H POC Glucose 168 H Lactic Acid Calcium Phosphorus Magnesium AST ALT Lactate Dehydrogenase Total Bilirubin Direct Bilirubin CK-MB (CK-2) C-Reactive Protein NT-Pro-B Natriuret Pep Total Protein Albumin Arterial Blood Glucose Urine WBC (Auto) Urine Creatinine 12/05/19 12/05/19 12/05/19 12:31 18:10 23:58 WBC RBC Hgb Hct MCHC RDW MCV MCH Lymph % (Auto) [place] % (Auto) [place] # Eos # Lymph # (Auto) [place] # (Auto) Eos # (Auto) Seg Neutrophils % Seg Neuts % (Manual) Baso # (Auto) Lymphocytes % (Manual) Monocytes % (Manual) Eosinophils % (Manual) Basophils % (Manual) Seg Neutrophils # Seg Neutrophils # Man Lymphocytes # (Manual) Monocytes # (Manual) Eosinophils # (Manual) Nucleated RBC % Basophils # (Manual) PT INR APTT Heparin Anti-Xa Level ABG pH POC ABG pO2 ABG pO2 ABG HCO3 ABG O2 Saturation ABG Base Excess POC ABG pCO2 ABG Hemoglobin ABG Oxyhemoglobin ABG Sodium ABG Chloride ABG Glucose Oxyhemoglobin Sodium Potassium Chloride Carbon Dioxide BUN Creatinine Glucose POC Glucose 159 H 198 H 115 H Lactic Acid Calcium Phosphorus Magnesium AST ALT Lactate Dehydrogenase Total Bilirubin Direct Bilirubin CK-MB (CK-2) C-Reactive Protein NT-Pro-B Natriuret Pep Total Protein Albumin Arterial Blood Glucose Urine WBC (Auto) Urine Creatinine 12/06/19 12/06/19 12/06/19 05:24 05:24 05:25 WBC 14.9 H RBC Hgb 10.8 L Hct 34.0 L MCHC RDW 15.6 H MCV MCH Lymph % (Auto) 10.7 L [place] % (Auto) 8.3 H [place] # 1.2 H Eos # Lymph # (Auto) [place] # (Auto) Eos # (Auto) Seg Neutrophils % 78.7 H Seg Neuts % (Manual) Baso # (Auto) Lymphocytes % (Manual) Monocytes % (Manual) Eosinophils % (Manual) Basophils % (Manual) Seg Neutrophils # 11.7 H Seg Neutrophils # Man Lymphocytes # (Manual) Monocytes # (Manual) Eosinophils # (Manual) Nucleated RBC % Basophils # (Manual) PT INR APTT Heparin Anti-Xa Level ABG pH POC ABG pO2 ABG pO2 ABG HCO3 ABG O2 Saturation ABG Base Excess POC ABG pCO2 ABG Hemoglobin ABG Oxyhemoglobin ABG Sodium ABG Chloride ABG Glucose Oxyhemoglobin Sodium 148 H Potassium 5.1 H Chloride 107.6 H Carbon Dioxide BUN 27 H Creatinine 0.7 L Glucose 155 H POC Glucose 157 H Lactic Acid Calcium Phosphorus Magnesium AST ALT Lactate Dehydrogenase Total Bilirubin Direct Bilirubin CK-MB (CK-2) C-Reactive Protein NT-Pro-B Natriuret Pep Total Protein Albumin Arterial Blood Glucose Urine WBC (Auto) Urine Creatinine 12/07/19 12/07/19 12/07/19 00:13 05:34 11:33 WBC RBC Hgb Hct MCHC RDW MCV MCH Lymph % (Auto) [place] % (Auto) [place] # Eos # Lymph # (Auto) [place] # (Auto) Eos # (Auto) Seg Neutrophils % Seg Neuts % (Manual) Baso # (Auto) Lymphocytes % (Manual) Monocytes % (Manual) Eosinophils % (Manual) Basophils % (Manual) Seg Neutrophils # Seg Neutrophils # Man Lymphocytes # (Manual) Monocytes # (Manual) Eosinophils # (Manual) Nucleated RBC % Basophils # (Manual) PT INR APTT Heparin Anti-Xa Level ABG pH POC ABG pO2 ABG pO2 ABG HCO3 ABG O2 Saturation ABG Base Excess POC ABG pCO2 ABG Hemoglobin ABG Oxyhemoglobin ABG Sodium ABG Chloride ABG Glucose Oxyhemoglobin Sodium Potassium Chloride Carbon Dioxide BUN Creatinine Glucose POC Glucose 142 H 111 H 169 H Lactic Acid Calcium Phosphorus Magnesium AST ALT Lactate Dehydrogenase Total Bilirubin Direct Bilirubin CK-MB (CK-2) C-Reactive Protein NT-Pro-B Natriuret Pep Total Protein Albumin Arterial Blood Glucose Urine WBC (Auto) Urine Creatinine 12/07/19 12/07/19 12/07/19 12:41 13:25 18:19 WBC 12.4 H RBC 3.53 L Hgb 10.2 L Hct 32.1 L MCHC RDW 15.3 H MCV MCH Lymph % (Auto) 10.6 L [place] % (Auto) 7.8 H [place] # 1.0 H Eos # Lymph # (Auto) [place] # (Auto) Eos # (Auto) Seg Neutrophils % 77.6 H Seg Neuts % (Manual) Baso # (Auto) Lymphocytes % (Manual) Monocytes % (Manual) Eosinophils % (Manual) Basophils % (Manual) Seg Neutrophils # 9.6 H Seg Neutrophils # Man Lymphocytes # (Manual) Monocytes # (Manual) Eosinophils # (Manual) Nucleated RBC % Basophils # (Manual) PT INR APTT Heparin Anti-Xa Level ABG pH POC ABG pO2 ABG pO2 ABG HCO3 ABG O2 Saturation ABG Base Excess POC ABG pCO2 ABG Hemoglobin ABG Oxyhemoglobin ABG Sodium ABG Chloride ABG Glucose Oxyhemoglobin Sodium 149 H Potassium Chloride 108.4 H Carbon Dioxide BUN 26 H Creatinine 0.6 L Glucose 149 H POC Glucose 164 H Lactic Acid Calcium Phosphorus Magnesium 2.60 H AST 121 H ALT 145 H Lactate Dehydrogenase Total Bilirubin Direct Bilirubin CK-MB (CK-2) C-Reactive Protein NT-Pro-B Natriuret Pep Total Protein Albumin 2.6 L Arterial Blood Glucose Urine WBC (Auto) Urine Creatinine 12/07/19 12/08/19 12/08/19 22:25 00:02 03:55 WBC 13.3 H RBC 3.40 L Hgb 9.7 L Hct 30.8 L MCHC 31 L RDW 15.5 H MCV MCH Lymph % (Auto) [place] % (Auto) 8.1 H [place] # 1.1 H Eos # Lymph # (Auto) [place] # (Auto) Eos # (Auto) Seg Neutrophils % 73.0 H Seg Neuts % (Manual) Baso # (Auto) Lymphocytes % (Manual) Monocytes % (Manual) Eosinophils % (Manual) Basophils % (Manual) Seg Neutrophils # 9.7 H Seg Neutrophils # Man Lymphocytes # (Manual) Monocytes # (Manual) Eosinophils # (Manual) Nucleated RBC % Basophils # (Manual) PT INR APTT Heparin Anti-Xa Level 0.12 L ABG pH POC ABG pO2 ABG pO2 ABG HCO3 ABG O2 Saturation ABG Base Excess POC ABG pCO2 ABG Hemoglobin ABG Oxyhemoglobin ABG Sodium ABG Chloride ABG Glucose Oxyhemoglobin Sodium Potassium Chloride Carbon Dioxide BUN Creatinine Glucose POC Glucose 151 H Lactic Acid Calcium Phosphorus Magnesium AST ALT Lactate Dehydrogenase Total Bilirubin Direct Bilirubin CK-MB (CK-2) C-Reactive Protein NT-Pro-B Natriuret Pep Total Protein Albumin Arterial Blood Glucose Urine WBC (Auto) Urine Creatinine 12/08/19 12/08/19 12/08/19 03:55 05:21 06:01 WBC RBC Hgb Hct MCHC RDW MCV MCH Lymph % (Auto) [place] % (Auto) [place] # Eos # Lymph # (Auto) [place] # (Auto) Eos # (Auto) Seg Neutrophils % Seg Neuts % (Manual) Baso # (Auto) Lymphocytes % (Manual) Monocytes % (Manual) Eosinophils % (Manual) Basophils % (Manual) Seg Neutrophils # Seg Neutrophils # Man Lymphocytes # (Manual) Monocytes # (Manual) Eosinophils # (Manual) Nucleated RBC % Basophils # (Manual) PT INR APTT Heparin Anti-Xa Level 0.20 L ABG pH POC ABG pO2 ABG pO2 ABG HCO3 ABG O2 Saturation ABG Base Excess POC ABG pCO2 ABG Hemoglobin ABG Oxyhemoglobin ABG Sodium ABG Chloride ABG Glucose Oxyhemoglobin Sodium 149 H Potassium Chloride 108.0 H Carbon Dioxide BUN 28 H Creatinine 0.6 L Glucose 144 H POC Glucose 143 H Lactic Acid Calcium Phosphorus Magnesium AST 98 H ALT 145 H Lactate Dehydrogenase Total Bilirubin Direct Bilirubin CK-MB (CK-2) C-Reactive Protein NT-Pro-B Natriuret Pep Total Protein 6.0 L Albumin 2.4 L Arterial Blood Glucose Urine WBC (Auto) Urine Creatinine 12/08/19 12/08/19 12/08/19 12:08 18:11 23:53 WBC RBC Hgb Hct MCHC RDW MCV MCH Lymph % (Auto) [place] % (Auto) [place] # Eos # Lymph # (Auto) [place] # (Auto) Eos # (Auto) Seg Neutrophils % Seg Neuts % (Manual) Baso # (Auto) Lymphocytes % (Manual) Monocytes % (Manual) Eosinophils % (Manual) Basophils % (Manual) Seg Neutrophils # Seg Neutrophils # Man Lymphocytes # (Manual) Monocytes # (Manual) Eosinophils # (Manual) Nucleated RBC % Basophils # (Manual) PT INR APTT Heparin Anti-Xa Level ABG pH POC ABG pO2 ABG pO2 ABG HCO3 ABG O2 Saturation ABG Base Excess POC ABG pCO2 ABG Hemoglobin ABG Oxyhemoglobin ABG Sodium ABG Chloride ABG Glucose Oxyhemoglobin Sodium Potassium Chloride Carbon Dioxide BUN Creatinine Glucose POC Glucose 172 H 122 H 162 H Lactic Acid Calcium Phosphorus Magnesium AST ALT Lactate Dehydrogenase Total Bilirubin Direct Bilirubin CK-MB (CK-2) C-Reactive Protein NT-Pro-B Natriuret Pep Total Protein Albumin Arterial Blood Glucose Urine WBC (Auto) Urine Creatinine 12/09/19 12/09/19 12/09/19 04:03 04:03 05:53 WBC RBC Hgb 9.1 L Hct 28.9 L MCHC RDW MCV MCH Lymph % (Auto) [place] % (Auto) [place] # Eos # Lymph # (Auto) [place] # (Auto) Eos # (Auto) Seg Neutrophils % Seg Neuts % (Manual) Baso # (Auto) Lymphocytes % (Manual) Monocytes % (Manual) Eosinophils % (Manual) Basophils % (Manual) Seg Neutrophils # Seg Neutrophils # Man Lymphocytes # (Manual) Monocytes # (Manual) Eosinophils # (Manual) Nucleated RBC % Basophils # (Manual) PT INR APTT Heparin Anti-Xa Level 0.15 L ABG pH POC ABG pO2 ABG pO2 ABG HCO3 ABG O2 Saturation ABG Base Excess POC ABG pCO2 ABG Hemoglobin ABG Oxyhemoglobin ABG Sodium ABG Chloride ABG Glucose Oxyhemoglobin Sodium Potassium Chloride Carbon Dioxide BUN Creatinine Glucose POC Glucose 124 H Lactic Acid Calcium Phosphorus Magnesium AST ALT Lactate Dehydrogenase Total Bilirubin Direct Bilirubin CK-MB (CK-2) C-Reactive Protein NT-Pro-B Natriuret Pep Total Protein Albumin Arterial Blood Glucose Urine WBC (Auto) Urine Creatinine 12/09/19 12/09/19 12/10/19 09:43 12:41 00:13 WBC RBC Hgb Hct MCHC RDW MCV MCH Lymph % (Auto) [place] % (Auto) [place] # Eos # Lymph # (Auto) [place] # (Auto) Eos # (Auto) Seg Neutrophils % Seg Neuts % (Manual) Baso # (Auto) Lymphocytes % (Manual) Monocytes % (Manual) Eosinophils % (Manual) Basophils % (Manual) Seg Neutrophils # Seg Neutrophils # Man Lymphocytes # (Manual) Monocytes # (Manual) Eosinophils # (Manual) Nucleated RBC % Basophils # (Manual) PT INR APTT Heparin Anti-Xa Level ABG pH POC ABG pO2 ABG pO2 ABG HCO3 ABG O2 Saturation ABG Base Excess POC ABG pCO2 ABG Hemoglobin ABG Oxyhemoglobin ABG Sodium ABG Chloride ABG Glucose Oxyhemoglobin Sodium Potassium Chloride Carbon Dioxide BUN 25 H Creatinine 0.6 L Glucose 131 H POC Glucose 109 H 120 H Lactic Acid Calcium Phosphorus Magnesium AST ALT Lactate Dehydrogenase Total Bilirubin Direct Bilirubin CK-MB (CK-2) C-Reactive Protein NT-Pro-B Natriuret Pep Total Protein Albumin Arterial Blood Glucose Urine WBC (Auto) Urine Creatinine 12/10/19 12/10/19 12/10/19 04:14 04:14 12:00 WBC 13.3 H RBC 3.34 L Hgb 9.6 L Hct 30.4 L MCHC RDW 15.4 H MCV MCH Lymph % (Auto) [place] % (Auto) [place] # Eos # Lymph # (Auto) [place] # (Auto) Eos # (Auto) Seg Neutrophils % Seg Neuts % (Manual) 75.0 H Baso # (Auto) Lymphocytes % (Manual) 13.0 L Monocytes % (Manual) 8.0 H Eosinophils % (Manual) Basophils % (Manual) 2.0 H Seg Neutrophils # Seg Neutrophils # Man 10.0 H Lymphocytes # (Manual) Monocytes # (Manual) 1.1 H Eosinophils # (Manual) Nucleated RBC % Basophils # (Manual) 0.3 H PT INR APTT Heparin Anti-Xa Level ABG pH POC ABG pO2 ABG pO2 ABG HCO3 ABG O2 Saturation ABG Base Excess POC ABG pCO2 ABG Hemoglobin ABG Oxyhemoglobin ABG Sodium ABG Chloride ABG Glucose Oxyhemoglobin Sodium 147 H Potassium Chloride 108.3 H Carbon Dioxide BUN 21 H Creatinine 0.6 L Glucose 104 H POC Glucose 133 H Lactic Acid Calcium Phosphorus Magnesium AST ALT Lactate Dehydrogenase Total Bilirubin Direct Bilirubin CK-MB (CK-2) C-Reactive Protein NT-Pro-B Natriuret Pep Total Protein Albumin Arterial Blood Glucose Urine WBC (Auto) Urine Creatinine 12/10/19 12/10/19 12/11/19 18:44 21:20 00:08 WBC 14.9 H RBC 3.36 L Hgb 9.6 L Hct 30.5 L MCHC RDW 15.4 H MCV MCH Lymph % (Auto) [place] % (Auto) [place] # Eos # Lymph # (Auto) [place] # (Auto) Eos # (Auto) Seg Neutrophils % Seg Neuts % (Manual) Baso # (Auto) Lymphocytes % (Manual) Monocytes % (Manual) Eosinophils % (Manual) Basophils % (Manual) Seg Neutrophils # Seg Neutrophils # Man Lymphocytes # (Manual) Monocytes # (Manual) Eosinophils # (Manual) Nucleated RBC % Basophils # (Manual) PT INR APTT Heparin Anti-Xa Level ABG pH POC ABG pO2 ABG pO2 ABG HCO3 ABG O2 Saturation ABG Base Excess POC ABG pCO2 ABG Hemoglobin ABG Oxyhemoglobin ABG Sodium ABG Chloride ABG Glucose Oxyhemoglobin Sodium Potassium Chloride Carbon Dioxide BUN Creatinine Glucose POC Glucose 119 H 134 H Lactic Acid Calcium Phosphorus Magnesium AST ALT Lactate Dehydrogenase Total Bilirubin Direct Bilirubin CK-MB (CK-2) C-Reactive Protein NT-Pro-B Natriuret Pep Total Protein Albumin Arterial Blood Glucose Urine WBC (Auto) Urine Creatinine 12/11/19 12/11/19 12/11/19 03:54 07:28 08:36 WBC 11.9 H RBC 3.25 L Hgb 9.6 L Hct 29.2 L MCHC RDW 15.7 H MCV MCH Lymph % (Auto) [place] % (Auto) [place] # Eos # Lymph # (Auto) [place] # (Auto) Eos # (Auto) Seg Neutrophils % Seg Neuts % (Manual) Baso # (Auto) Lymphocytes % (Manual) Monocytes % (Manual) Eosinophils % (Manual) Basophils % (Manual) Seg Neutrophils # Seg Neutrophils # Man Lymphocytes # (Manual) Monocytes # (Manual) Eosinophils # (Manual) Nucleated RBC % Basophils # (Manual) PT INR APTT Heparin Anti-Xa Level 0.10 L 0.16 L ABG pH POC ABG pO2 ABG pO2 ABG HCO3 ABG O2 Saturation ABG Base Excess POC ABG pCO2 ABG Hemoglobin ABG Oxyhemoglobin ABG Sodium ABG Chloride ABG Glucose Oxyhemoglobin Sodium Potassium Chloride Carbon Dioxide BUN Creatinine Glucose POC Glucose Lactic Acid Calcium Phosphorus Magnesium AST ALT Lactate Dehydrogenase Total Bilirubin Direct Bilirubin CK-MB (CK-2) C-Reactive Protein NT-Pro-B Natriuret Pep Total Protein Albumin Arterial Blood Glucose Urine WBC (Auto) Urine Creatinine 12/11/19 12/11/19 12/11/19 08:36 11:45 17:15 WBC RBC Hgb Hct MCHC RDW MCV MCH Lymph % (Auto) [place] % (Auto) [place] # Eos # Lymph # (Auto) [place] # (Auto) Eos # (Auto) Seg Neutrophils % Seg Neuts % (Manual) Baso # (Auto) Lymphocytes % (Manual) Monocytes % (Manual) Eosinophils % (Manual) Basophils % (Manual) Seg Neutrophils # Seg Neutrophils # Man Lymphocytes # (Manual) Monocytes # (Manual) Eosinophils # (Manual) Nucleated RBC % Basophils # (Manual) PT INR APTT Heparin Anti-Xa Level ABG pH POC ABG pO2 ABG pO2 ABG HCO3 ABG O2 Saturation ABG Base Excess POC ABG pCO2 ABG Hemoglobin ABG Oxyhemoglobin ABG Sodium ABG Chloride ABG Glucose Oxyhemoglobin Sodium Potassium Chloride Carbon Dioxide BUN Creatinine 0.5 L Glucose 128 H POC Glucose 136 H 109 H Lactic Acid Calcium Phosphorus Magnesium AST ALT Lactate Dehydrogenase Total Bilirubin Direct Bilirubin CK-MB (CK-2) C-Reactive Protein NT-Pro-B Natriuret Pep Total Protein Albumin Arterial Blood Glucose Urine WBC (Auto) Urine Creatinine 12/12/19 12/12/19 12/12/19 00:03 05:53 05:53 WBC RBC Hgb 8.8 L Hct 27.6 L MCHC RDW MCV MCH Lymph % (Auto) [place] % (Auto) [place] # Eos # Lymph # (Auto) [place] # (Auto) Eos # (Auto) Seg Neutrophils % Seg Neuts % (Manual) Baso # (Auto) Lymphocytes % (Manual) Monocytes % (Manual) Eosinophils % (Manual) Basophils % (Manual) Seg Neutrophils # Seg Neutrophils # Man Lymphocytes # (Manual) Monocytes # (Manual) Eosinophils # (Manual) Nucleated RBC % Basophils # (Manual) PT INR APTT Heparin Anti-Xa Level 0.22 L ABG pH POC ABG pO2 ABG pO2 ABG HCO3 ABG O2 Saturation ABG Base Excess POC ABG pCO2 ABG Hemoglobin ABG Oxyhemoglobin ABG Sodium ABG Chloride ABG Glucose Oxyhemoglobin Sodium Potassium Chloride Carbon Dioxide BUN Creatinine Glucose POC Glucose 116 H Lactic Acid Calcium Phosphorus Magnesium AST ALT Lactate Dehydrogenase Total Bilirubin Direct Bilirubin CK-MB (CK-2) C-Reactive Protein NT-Pro-B Natriuret Pep Total Protein Albumin Arterial Blood Glucose Urine WBC (Auto) Urine Creatinine 12/12/19 12/12/19 12/12/19 09:38 12:18 17:44 WBC RBC Hgb Hct MCHC RDW MCV MCH Lymph % (Auto) [place] % (Auto) [place] # Eos # Lymph # (Auto) [place] # (Auto) Eos # (Auto) Seg Neutrophils % Seg Neuts % (Manual) Baso # (Auto) Lymphocytes % (Manual) Monocytes % (Manual) Eosinophils % (Manual) Basophils % (Manual) Seg Neutrophils # Seg Neutrophils # Man Lymphocytes # (Manual) Monocytes # (Manual) Eosinophils # (Manual) Nucleated RBC % Basophils # (Manual) PT INR APTT Heparin Anti-Xa Level ABG pH POC ABG pO2 ABG pO2 ABG HCO3 ABG O2 Saturation ABG Base Excess POC ABG pCO2 ABG Hemoglobin ABG Oxyhemoglobin ABG Sodium ABG Chloride ABG Glucose Oxyhemoglobin Sodium Potassium Chloride Carbon Dioxide BUN Creatinine Glucose POC Glucose 115 H 146 H 146 H Lactic Acid Calcium Phosphorus Magnesium AST ALT Lactate Dehydrogenase Total Bilirubin Direct Bilirubin CK-MB (CK-2) C-Reactive Protein NT-Pro-B Natriuret Pep Total Protein Albumin Arterial Blood Glucose Urine WBC (Auto) Urine Creatinine 12/12/19 12/13/19 12/13/19 23:33 05:32 05:32 WBC 13.1 H RBC 3.27 L Hgb 9.5 L Hct 29.3 L MCHC RDW 15.6 H MCV MCH Lymph % (Auto) [place] % (Auto) [place] # Eos # Lymph # (Auto) [place] # (Auto) Eos # (Auto) Seg Neutrophils % Seg Neuts % (Manual) 74.0 H Baso # (Auto) Lymphocytes % (Manual) 8.0 L Monocytes % (Manual) 9.0 H Eosinophils % (Manual) 5.0 H Basophils % (Manual) Seg Neutrophils # Seg Neutrophils # Man 9.7 H Lymphocytes # (Manual) 1.0 L Monocytes # (Manual) 1.2 H Eosinophils # (Manual) 0.7 H Nucleated RBC % Basophils # (Manual) PT INR APTT Heparin Anti-Xa Level 0.20 L ABG pH POC ABG pO2 ABG pO2 ABG HCO3 ABG O2 Saturation ABG Base Excess POC ABG pCO2 ABG Hemoglobin ABG Oxyhemoglobin ABG Sodium ABG Chloride ABG Glucose Oxyhemoglobin Sodium Potassium Chloride Carbon Dioxide BUN Creatinine Glucose POC Glucose 126 H Lactic Acid Calcium Phosphorus Magnesium AST ALT Lactate Dehydrogenase Total Bilirubin Direct Bilirubin CK-MB (CK-2) C-Reactive Protein NT-Pro-B Natriuret Pep Total Protein Albumin Arterial Blood Glucose Urine WBC (Auto) Urine Creatinine 12/13/19 12/13/19 12/13/19 05:32 05:46 11:57 WBC RBC Hgb Hct MCHC RDW MCV MCH Lymph % (Auto) [place] % (Auto) [place] # Eos # Lymph # (Auto) [place] # (Auto) Eos # (Auto) Seg Neutrophils % Seg Neuts % (Manual) Baso # (Auto) Lymphocytes % (Manual) Monocytes % (Manual) Eosinophils % (Manual) Basophils % (Manual) Seg Neutrophils # Seg Neutrophils # Man Lymphocytes # (Manual) Monocytes # (Manual) Eosinophils # (Manual) Nucleated RBC % Basophils # (Manual) PT INR APTT Heparin Anti-Xa Level ABG pH POC ABG pO2 ABG pO2 ABG HCO3 ABG O2 Saturation ABG Base Excess POC ABG pCO2 ABG Hemoglobin ABG Oxyhemoglobin ABG Sodium ABG Chloride ABG Glucose Oxyhemoglobin Sodium Potassium Chloride Carbon Dioxide 31 H BUN Creatinine 0.6 L Glucose 114 H POC Glucose 118 H 133 H Lactic Acid Calcium Phosphorus Magnesium AST ALT Lactate Dehydrogenase Total Bilirubin Direct Bilirubin CK-MB (CK-2) C-Reactive Protein NT-Pro-B Natriuret Pep Total Protein Albumin Arterial Blood Glucose Urine WBC (Auto) Urine Creatinine 12/13/19 12/13/19 12/14/19 17:44 23:46 05:32 WBC RBC Hgb Hct MCHC RDW MCV MCH Lymph % (Auto) [place] % (Auto) [place] # Eos # Lymph # (Auto) [place] # (Auto) Eos # (Auto) Seg Neutrophils % Seg Neuts % (Manual) Baso # (Auto) Lymphocytes % (Manual) Monocytes % (Manual) Eosinophils % (Manual) Basophils % (Manual) Seg Neutrophils # Seg Neutrophils # Man Lymphocytes # (Manual) Monocytes # (Manual) Eosinophils # (Manual) Nucleated RBC % Basophils # (Manual) PT INR APTT Heparin Anti-Xa Level ABG pH POC ABG pO2 ABG pO2 ABG HCO3 ABG O2 Saturation ABG Base Excess POC ABG pCO2 ABG Hemoglobin ABG Oxyhemoglobin ABG Sodium ABG Chloride ABG Glucose Oxyhemoglobin Sodium Potassium Chloride Carbon Dioxide BUN Creatinine Glucose POC Glucose 161 H 126 H 139 H Lactic Acid Calcium Phosphorus Magnesium AST ALT Lactate Dehydrogenase Total Bilirubin Direct Bilirubin CK-MB (CK-2) C-Reactive Protein NT-Pro-B Natriuret Pep Total Protein Albumin Arterial Blood Glucose Urine WBC (Auto) Urine Creatinine 12/14/19 12/14/19 12/14/19 06:03 06:03 09:37 WBC RBC Hgb 9.6 L Hct 30.4 L MCHC RDW MCV MCH Lymph % (Auto) [place] % (Auto) [place] # Eos # Lymph # (Auto) [place] # (Auto) Eos # (Auto) Seg Neutrophils % Seg Neuts % (Manual) Baso # (Auto) Lymphocytes % (Manual) Monocytes % (Manual) Eosinophils % (Manual) Basophils % (Manual) Seg Neutrophils # Seg Neutrophils # Man Lymphocytes # (Manual) Monocytes # (Manual) Eosinophils # (Manual) Nucleated RBC % Basophils # (Manual) PT INR APTT Heparin Anti-Xa Level 0.24 L ABG pH POC ABG pO2 ABG pO2 ABG HCO3 ABG O2 Saturation ABG Base Excess POC ABG pCO2 ABG Hemoglobin ABG Oxyhemoglobin ABG Sodium ABG Chloride ABG Glucose Oxyhemoglobin Sodium Potassium Chloride Carbon Dioxide BUN Creatinine 0.6 L Glucose 162 H POC Glucose Lactic Acid Calcium Phosphorus Magnesium AST 71 H ALT 118 H Lactate Dehydrogenase Total Bilirubin Direct Bilirubin CK-MB (CK-2) C-Reactive Protein NT-Pro-B Natriuret Pep Total Protein 6.2 L Albumin 2.3 L Arterial Blood Glucose Urine WBC (Auto) Urine Creatinine 12/14/19 12/14/19 12/15/19 12:06 18:18 00:19 WBC RBC Hgb Hct MCHC RDW MCV MCH Lymph % (Auto) [place] % (Auto) [place] # Eos # Lymph # (Auto) [place] # (Auto) Eos # (Auto) Seg Neutrophils % Seg Neuts % (Manual) Baso # (Auto) Lymphocytes % (Manual) Monocytes % (Manual) Eosinophils % (Manual) Basophils % (Manual) Seg Neutrophils # Seg Neutrophils # Man Lymphocytes # (Manual) Monocytes # (Manual) Eosinophils # (Manual) Nucleated RBC % Basophils # (Manual) PT INR APTT Heparin Anti-Xa Level ABG pH POC ABG pO2 ABG pO2 ABG HCO3 ABG O2 Saturation ABG Base Excess POC ABG pCO2 ABG Hemoglobin ABG Oxyhemoglobin ABG Sodium ABG Chloride ABG Glucose Oxyhemoglobin Sodium Potassium Chloride Carbon Dioxide BUN Creatinine Glucose POC Glucose 147 H 166 H 123 H Lactic Acid Calcium Phosphorus Magnesium AST ALT Lactate Dehydrogenase Total Bilirubin Direct Bilirubin CK-MB (CK-2) C-Reactive Protein NT-Pro-B Natriuret Pep Total Protein Albumin Arterial Blood Glucose Urine WBC (Auto) Urine Creatinine 12/15/19 12/15/19 12/15/19 05:28 05:29 05:29 WBC 14.9 H RBC 3.19 L Hgb 9.1 L Hct 28.7 L MCHC RDW 16.0 H MCV MCH Lymph % (Auto) [place] % (Auto) [place] # Eos # Lymph # (Auto) [place] # (Auto) Eos # (Auto) Seg Neutrophils % Seg Neuts % (Manual) Baso # (Auto) Lymphocytes % (Manual) Monocytes % (Manual) Eosinophils % (Manual) Basophils % (Manual) Seg Neutrophils # Seg Neutrophils # Man Lymphocytes # (Manual) Monocytes # (Manual) Eosinophils # (Manual) Nucleated RBC % Basophils # (Manual) PT INR APTT Heparin Anti-Xa Level 0.19 L ABG pH POC ABG pO2 ABG pO2 ABG HCO3 ABG O2 Saturation ABG Base Excess POC ABG pCO2 ABG Hemoglobin ABG Oxyhemoglobin ABG Sodium ABG Chloride ABG Glucose Oxyhemoglobin Sodium Potassium Chloride Carbon Dioxide BUN Creatinine 0.6 L Glucose 110 H POC Glucose Lactic Acid Calcium Phosphorus Magnesium AST ALT Lactate Dehydrogenase Total Bilirubin Direct Bilirubin CK-MB (CK-2) C-Reactive Protein NT-Pro-B Natriuret Pep Total Protein Albumin Arterial Blood Glucose Urine WBC (Auto) Urine Creatinine 12/15/19 12/15/19 12/15/19 05:53 11:50 17:26 WBC RBC Hgb Hct MCHC RDW MCV MCH Lymph % (Auto) [place] % (Auto) [place] # Eos # Lymph # (Auto) [place] # (Auto) Eos # (Auto) Seg Neutrophils % Seg Neuts % (Manual) Baso # (Auto) Lymphocytes % (Manual) Monocytes % (Manual) Eosinophils % (Manual) Basophils % (Manual) Seg Neutrophils # Seg Neutrophils # Man Lymphocytes # (Manual) Monocytes # (Manual) Eosinophils # (Manual) Nucleated RBC % Basophils # (Manual) PT INR APTT Heparin Anti-Xa Level ABG pH POC ABG pO2 ABG pO2 ABG HCO3 ABG O2 Saturation ABG Base Excess POC ABG pCO2 ABG Hemoglobin ABG Oxyhemoglobin ABG Sodium ABG Chloride ABG Glucose Oxyhemoglobin Sodium Potassium Chloride Carbon Dioxide BUN Creatinine Glucose POC Glucose 119 H 132 H 128 H Lactic Acid Calcium Phosphorus Magnesium AST ALT Lactate Dehydrogenase Total Bilirubin Direct Bilirubin CK-MB (CK-2) C-Reactive Protein NT-Pro-B Natriuret Pep Total Protein Albumin Arterial Blood Glucose Urine WBC (Auto) Urine Creatinine 12/15/19 12/16/19 12/16/19 23:11 05:30 05:46 WBC RBC Hgb 8.8 L Hct 27.9 L MCHC RDW MCV MCH Lymph % (Auto) [place] % (Auto) [place] # Eos # Lymph # (Auto) [place] # (Auto) Eos # (Auto) Seg Neutrophils % Seg Neuts % (Manual) Baso # (Auto) Lymphocytes % (Manual) Monocytes % (Manual) Eosinophils % (Manual) Basophils % (Manual) Seg Neutrophils # Seg Neutrophils # Man Lymphocytes # (Manual) Monocytes # (Manual) Eosinophils # (Manual) Nucleated RBC % Basophils # (Manual) PT INR APTT Heparin Anti-Xa Level ABG pH POC ABG pO2 ABG pO2 ABG HCO3 ABG O2 Saturation ABG Base Excess POC ABG pCO2 ABG Hemoglobin ABG Oxyhemoglobin ABG Sodium ABG Chloride ABG Glucose Oxyhemoglobin Sodium Potassium Chloride Carbon Dioxide BUN Creatinine Glucose POC Glucose 150 H 134 H Lactic Acid Calcium Phosphorus Magnesium AST ALT Lactate Dehydrogenase Total Bilirubin Direct Bilirubin CK-MB (CK-2) C-Reactive Protein NT-Pro-B Natriuret Pep Total Protein Albumin Arterial Blood Glucose Urine WBC (Auto) Urine Creatinine 12/16/19 12/16/19 12/16/19 05:46 05:46 11:44 WBC RBC Hgb Hct MCHC RDW MCV MCH Lymph % (Auto) [place] % (Auto) [place] # Eos # Lymph # (Auto) [place] # (Auto) Eos # (Auto) Seg Neutrophils % Seg Neuts % (Manual) Baso # (Auto) Lymphocytes % (Manual) Monocytes % (Manual) Eosinophils % (Manual) Basophils % (Manual) Seg Neutrophils # Seg Neutrophils # Man Lymphocytes # (Manual) Monocytes # (Manual) Eosinophils # (Manual) Nucleated RBC % Basophils # (Manual) PT INR APTT Heparin Anti-Xa Level 0.20 L ABG pH POC ABG pO2 ABG pO2 ABG HCO3 ABG O2 Saturation ABG Base Excess POC ABG pCO2 ABG Hemoglobin ABG Oxyhemoglobin ABG Sodium ABG Chloride ABG Glucose Oxyhemoglobin Sodium Potassium Chloride Carbon Dioxide 31 H BUN Creatinine 0.5 L Glucose 147 H POC Glucose 164 H Lactic Acid Calcium Phosphorus Magnesium AST ALT Lactate Dehydrogenase Total Bilirubin Direct Bilirubin CK-MB (CK-2) C-Reactive Protein NT-Pro-B Natriuret Pep Total Protein Albumin Arterial Blood Glucose Urine WBC (Auto) Urine Creatinine 12/16/19 12/16/19 12/17/19 17:17 23:49 05:30 WBC 13.9 H RBC 3.27 L Hgb 9.4 L Hct 29.2 L MCHC RDW 16.0 H MCV MCH Lymph % (Auto) [place] % (Auto) 8.8 H [place] # Eos # Lymph # (Auto) [place] # (Auto) 1.2 H Eos # (Auto) 0.5 H Seg Neutrophils % 70.5 H Seg Neuts % (Manual) Baso # (Auto) 0.2 H Lymphocytes % (Manual) Monocytes % (Manual) Eosinophils % (Manual) Basophils % (Manual) Seg Neutrophils # 9.8 H Seg Neutrophils # Man Lymphocytes # (Manual) Monocytes # (Manual) Eosinophils # (Manual) Nucleated RBC % Basophils # (Manual) PT INR APTT Heparin Anti-Xa Level ABG pH POC ABG pO2 ABG pO2 ABG HCO3 ABG O2 Saturation ABG Base Excess POC ABG pCO2 ABG Hemoglobin ABG Oxyhemoglobin ABG Sodium ABG Chloride ABG Glucose Oxyhemoglobin Sodium Potassium Chloride Carbon Dioxide BUN Creatinine Glucose POC Glucose 162 H 144 H Lactic Acid Calcium Phosphorus Magnesium AST ALT Lactate Dehydrogenase Total Bilirubin Direct Bilirubin CK-MB (CK-2) C-Reactive Protein NT-Pro-B Natriuret Pep Total Protein Albumin Arterial Blood Glucose Urine WBC (Auto) Urine Creatinine 12/17/19 12/17/19 12/17/19 05:30 06:06 11:50 WBC RBC Hgb Hct MCHC RDW MCV MCH Lymph % (Auto) [place] % (Auto) [place] # Eos # Lymph # (Auto) [place] # (Auto) Eos # (Auto) Seg Neutrophils % Seg Neuts % (Manual) Baso # (Auto) Lymphocytes % (Manual) Monocytes % (Manual) Eosinophils % (Manual) Basophils % (Manual) Seg Neutrophils # Seg Neutrophils # Man Lymphocytes # (Manual) Monocytes # (Manual) Eosinophils # (Manual) Nucleated RBC % Basophils # (Manual) PT INR APTT Heparin Anti-Xa Level ABG pH POC ABG pO2 ABG pO2 ABG HCO3 ABG O2 Saturation ABG Base Excess POC ABG pCO2 ABG Hemoglobin ABG Oxyhemoglobin ABG Sodium ABG Chloride ABG Glucose Oxyhemoglobin Sodium Potassium Chloride 97.4 L Carbon Dioxide 32 H BUN Creatinine 0.5 L Glucose 135 H POC Glucose 151 H 140 H Lactic Acid Calcium Phosphorus Magnesium AST ALT Lactate Dehydrogenase Total Bilirubin Direct Bilirubin CK-MB (CK-2) C-Reactive Protein NT-Pro-B Natriuret Pep Total Protein Albumin Arterial Blood Glucose Urine WBC (Auto) Urine Creatinine 12/17/19 12/17/19 12/18/19 17:50 23:46 05:17 WBC RBC Hgb 8.8 L Hct 28.0 L MCHC RDW MCV MCH Lymph % (Auto) [place] % (Auto) [place] # Eos # Lymph # (Auto) [place] # (Auto) Eos # (Auto) Seg Neutrophils % Seg Neuts % (Manual) Baso # (Auto) Lymphocytes % (Manual) Monocytes % (Manual) Eosinophils % (Manual) Basophils % (Manual) Seg Neutrophils # Seg Neutrophils # Man Lymphocytes # (Manual) Monocytes # (Manual) Eosinophils # (Manual) Nucleated RBC % Basophils # (Manual) PT INR APTT Heparin Anti-Xa Level ABG pH POC ABG pO2 ABG pO2 ABG HCO3 ABG O2 Saturation ABG Base Excess POC ABG pCO2 ABG Hemoglobin ABG Oxyhemoglobin ABG Sodium ABG Chloride ABG Glucose Oxyhemoglobin Sodium Potassium Chloride Carbon Dioxide BUN Creatinine Glucose POC Glucose 158 H 150 H Lactic Acid Calcium Phosphorus Magnesium AST ALT Lactate Dehydrogenase Total Bilirubin Direct Bilirubin CK-MB (CK-2) C-Reactive Protein NT-Pro-B Natriuret Pep Total Protein Albumin Arterial Blood Glucose Urine WBC (Auto) Urine Creatinine 12/18/19 12/18/19 12/18/19 05:17 05:49 11:12 WBC RBC Hgb Hct MCHC RDW MCV MCH Lymph % (Auto) [place] % (Auto) [place] # Eos # Lymph # (Auto) [place] # (Auto) Eos # (Auto) Seg Neutrophils % Seg Neuts % (Manual) Baso # (Auto) Lymphocytes % (Manual) Monocytes % (Manual) Eosinophils % (Manual) Basophils % (Manual) Seg Neutrophils # Seg Neutrophils # Man Lymphocytes # (Manual) Monocytes # (Manual) Eosinophils # (Manual) Nucleated RBC % Basophils # (Manual) PT INR APTT Heparin Anti-Xa Level 0.16 L ABG pH POC ABG pO2 ABG pO2 ABG HCO3 ABG O2 Saturation ABG Base Excess POC ABG pCO2 ABG Hemoglobin ABG Oxyhemoglobin ABG Sodium ABG Chloride ABG Glucose Oxyhemoglobin Sodium Potassium Chloride Carbon Dioxide BUN Creatinine Glucose POC Glucose 127 H 191 H Lactic Acid Calcium Phosphorus Magnesium AST ALT Lactate Dehydrogenase Total Bilirubin Direct Bilirubin CK-MB (CK-2) C-Reactive Protein NT-Pro-B Natriuret Pep Total Protein Albumin Arterial Blood Glucose Urine WBC (Auto) Urine Creatinine 12/18/19 12/18/19 12/19/19 17:03 20:16 00:08 WBC RBC Hgb Hct MCHC RDW MCV MCH Lymph % (Auto) [place] % (Auto) [place] # Eos # Lymph # (Auto) [place] # (Auto) Eos # (Auto) Seg Neutrophils % Seg Neuts % (Manual) Baso # (Auto) Lymphocytes % (Manual) Monocytes % (Manual) Eosinophils % (Manual) Basophils % (Manual) Seg Neutrophils # Seg Neutrophils # Man Lymphocytes # (Manual) Monocytes # (Manual) Eosinophils # (Manual) Nucleated RBC % Basophils # (Manual) PT INR APTT Heparin Anti-Xa Level ABG pH POC ABG pO2 ABG pO2 ABG HCO3 ABG O2 Saturation ABG Base Excess POC ABG pCO2 ABG Hemoglobin ABG Oxyhemoglobin ABG Sodium ABG Chloride ABG Glucose Oxyhemoglobin Sodium Potassium Chloride Carbon Dioxide BUN Creatinine Glucose POC Glucose 133 H 128 H 129 H Lactic Acid Calcium Phosphorus Magnesium AST ALT Lactate Dehydrogenase Total Bilirubin Direct Bilirubin CK-MB (CK-2) C-Reactive Protein NT-Pro-B Natriuret Pep Total Protein Albumin Arterial Blood Glucose Urine WBC (Auto) Urine Creatinine 12/19/19 12/19/19 12/19/19 04:45 04:45 05:35 WBC RBC Hgb Hct MCHC RDW MCV MCH Lymph % (Auto) [place] % (Auto) [place] # Eos # Lymph # (Auto) [place] # (Auto) Eos # (Auto) Seg Neutrophils % Seg Neuts % (Manual) Baso # (Auto) Lymphocytes % (Manual) Monocytes % (Manual) Eosinophils % (Manual) Basophils % (Manual) Seg Neutrophils # Seg Neutrophils # Man Lymphocytes # (Manual) Monocytes # (Manual) Eosinophils # (Manual) Nucleated RBC % Basophils # (Manual) PT INR APTT Heparin Anti-Xa Level 0.17 L ABG pH POC ABG pO2 ABG pO2 ABG HCO3 ABG O2 Saturation ABG Base Excess POC ABG pCO2 ABG Hemoglobin ABG Oxyhemoglobin ABG Sodium ABG Chloride ABG Glucose Oxyhemoglobin Sodium Potassium Chloride Carbon Dioxide BUN Creatinine Glucose POC Glucose 120 H Lactic Acid Calcium Phosphorus Magnesium AST ALT Lactate Dehydrogenase 228 H Total Bilirubin Direct Bilirubin CK-MB (CK-2) C-Reactive Protein NT-Pro-B Natriuret Pep Total Protein Albumin Arterial Blood Glucose Urine WBC (Auto) Urine Creatinine 12/19/19 12/19/19 12/19/19 09:20 11:32 11:32 WBC 14.6 H RBC 3.08 L Hgb 9.0 L Hct 26.8 L MCHC RDW 15.9 H MCV MCH Lymph % (Auto) [place] % (Auto) [place] # Eos # Lymph # (Auto) [place] # (Auto) Eos # (Auto) Seg Neutrophils % Seg Neuts % (Manual) 82.0 H Baso # (Auto) Lymphocytes % (Manual) 10.0 L Monocytes % (Manual) Eosinophils % (Manual) Basophils % (Manual) Seg Neutrophils # Seg Neutrophils # Man 12.0 H Lymphocytes # (Manual) Monocytes # (Manual) 0.9 H Eosinophils # (Manual) Nucleated RBC % 1.0 H Basophils # (Manual) PT INR APTT Heparin Anti-Xa Level ABG pH 7.451 H POC ABG pO2 ABG pO2 62.6 L ABG HCO3 33.2 H ABG O2 Saturation 93.8 L ABG Base Excess 8.3 H POC ABG pCO2 ABG Hemoglobin 8.3 L ABG Oxyhemoglobin ABG Sodium ABG Chloride ABG Glucose Oxyhemoglobin 91.9 L Sodium Potassium Chloride 95.0 L Carbon Dioxide 33 H BUN 22 H Creatinine 0.6 L Glucose 150 H POC Glucose Lactic Acid Calcium Phosphorus Magnesium AST ALT Lactate Dehydrogenase Total Bilirubin Direct Bilirubin CK-MB (CK-2) C-Reactive Protein NT-Pro-B Natriuret Pep Total Protein 6.2 L Albumin 2.4 L Arterial Blood Glucose Urine WBC (Auto) Urine Creatinine 12/19/19 12/19/19 12/20/19 11:56 18:17 00:09 WBC RBC Hgb Hct MCHC RDW MCV MCH Lymph % (Auto) [place] % (Auto) [place] # Eos # Lymph # (Auto) [place] # (Auto) Eos # (Auto) Seg Neutrophils % Seg Neuts % (Manual) Baso # (Auto) Lymphocytes % (Manual) Monocytes % (Manual) Eosinophils % (Manual) Basophils % (Manual) Seg Neutrophils # Seg Neutrophils # Man Lymphocytes # (Manual) Monocytes # (Manual) Eosinophils # (Manual) Nucleated RBC % Basophils # (Manual) PT INR APTT Heparin Anti-Xa Level ABG pH POC ABG pO2 ABG pO2 ABG HCO3 ABG O2 Saturation ABG Base Excess POC ABG pCO2 ABG Hemoglobin ABG Oxyhemoglobin ABG Sodium ABG Chloride ABG Glucose Oxyhemoglobin Sodium Potassium Chloride Carbon Dioxide BUN Creatinine Glucose POC Glucose 156 H 156 H 155 H Lactic Acid Calcium Phosphorus Magnesium AST ALT Lactate Dehydrogenase Total Bilirubin Direct Bilirubin CK-MB (CK-2) C-Reactive Protein NT-Pro-B Natriuret Pep Total Protein Albumin Arterial Blood Glucose Urine WBC (Auto) Urine Creatinine 12/20/19 12/20/19 12/20/19 05:26 06:02 18:17 WBC RBC Hgb Hct MCHC RDW MCV MCH Lymph % (Auto) [place] % (Auto) [place] # Eos # Lymph # (Auto) [place] # (Auto) Eos # (Auto) Seg Neutrophils % Seg Neuts % (Manual) Baso # (Auto) Lymphocytes % (Manual) Monocytes % (Manual) Eosinophils % (Manual) Basophils % (Manual) Seg Neutrophils # Seg Neutrophils # Man Lymphocytes # (Manual) Monocytes # (Manual) Eosinophils # (Manual) Nucleated RBC % Basophils # (Manual) PT INR APTT Heparin Anti-Xa Level 0.19 L ABG pH POC ABG pO2 ABG pO2 ABG HCO3 ABG O2 Saturation ABG Base Excess POC ABG pCO2 ABG Hemoglobin ABG Oxyhemoglobin ABG Sodium ABG Chloride ABG Glucose Oxyhemoglobin Sodium Potassium Chloride Carbon Dioxide BUN Creatinine Glucose POC Glucose 137 H 128 H Lactic Acid Calcium Phosphorus Magnesium AST ALT Lactate Dehydrogenase Total Bilirubin Direct Bilirubin CK-MB (CK-2) C-Reactive Protein NT-Pro-B Natriuret Pep Total Protein Albumin Arterial Blood Glucose Urine WBC (Auto) Urine Creatinine 12/20/19 12/21/19 12/21/19 23:34 05:31 05:31 WBC 12.7 H RBC 3.09 L Hgb 8.9 L Hct 27.4 L MCHC RDW 15.8 H MCV MCH Lymph % (Auto) 12.1 L [place] % (Auto) 7.8 H [place] # Eos # Lymph # (Auto) [place] # (Auto) 1.0 H Eos # (Auto) Seg Neutrophils % 77.1 H Seg Neuts % (Manual) Baso # (Auto) Lymphocytes % (Manual) Monocytes % (Manual) Eosinophils % (Manual) Basophils % (Manual) Seg Neutrophils # 9.8 H Seg Neutrophils # Man Lymphocytes # (Manual) Monocytes # (Manual) Eosinophils # (Manual) Nucleated RBC % Basophils # (Manual) PT INR APTT Heparin Anti-Xa Level ABG pH POC ABG pO2 ABG pO2 ABG HCO3 ABG O2 Saturation ABG Base Excess POC ABG pCO2 ABG Hemoglobin ABG Oxyhemoglobin ABG Sodium ABG Chloride ABG Glucose Oxyhemoglobin Sodium Potassium Chloride 96.9 L Carbon Dioxide 37 H BUN 27 H Creatinine 0.7 L Glucose 140 H POC Glucose 145 H Lactic Acid Calcium Phosphorus Magnesium AST ALT Lactate Dehydrogenase Total Bilirubin Direct Bilirubin CK-MB (CK-2) C-Reactive Protein NT-Pro-B Natriuret Pep Total Protein Albumin Arterial Blood Glucose Urine WBC (Auto) Urine Creatinine 12/21/19 12/21/19 12/21/19 05:38 10:13 11:51 WBC RBC Hgb Hct MCHC RDW MCV MCH Lymph % (Auto) [place] % (Auto) [place] # Eos # Lymph # (Auto) [place] # (Auto) Eos # (Auto) Seg Neutrophils % Seg Neuts % (Manual) Baso # (Auto) Lymphocytes % (Manual) Monocytes % (Manual) Eosinophils % (Manual) Basophils % (Manual) Seg Neutrophils # Seg Neutrophils # Man Lymphocytes # (Manual) Monocytes # (Manual) Eosinophils # (Manual) Nucleated RBC % Basophils # (Manual) PT INR APTT 23.9 L Heparin Anti-Xa Level < 0.10 L ABG pH POC ABG pO2 ABG pO2 ABG HCO3 ABG O2 Saturation ABG Base Excess POC ABG pCO2 ABG Hemoglobin ABG Oxyhemoglobin ABG Sodium ABG Chloride ABG Glucose Oxyhemoglobin Sodium Potassium Chloride Carbon Dioxide BUN Creatinine Glucose POC Glucose 151 H 145 H Lactic Acid Calcium Phosphorus Magnesium AST ALT Lactate Dehydrogenase Total Bilirubin Direct Bilirubin CK-MB (CK-2) C-Reactive Protein NT-Pro-B Natriuret Pep Total Protein Albumin Arterial Blood Glucose Urine WBC (Auto) Urine Creatinine 12/21/19 12/22/19 12/22/19 17:16 00:01 01:33 WBC RBC Hgb Hct MCHC RDW MCV MCH Lymph % (Auto) [place] % (Auto) [place] # Eos # Lymph # (Auto) [place] # (Auto) Eos # (Auto) Seg Neutrophils % Seg Neuts % (Manual) Baso # (Auto) Lymphocytes % (Manual) Monocytes % (Manual) Eosinophils % (Manual) Basophils % (Manual) Seg Neutrophils # Seg Neutrophils # Man Lymphocytes # (Manual) Monocytes # (Manual) Eosinophils # (Manual) Nucleated RBC % Basophils # (Manual) PT INR APTT Heparin Anti-Xa Level 0.10 L ABG pH POC ABG pO2 ABG pO2 ABG HCO3 ABG O2 Saturation ABG Base Excess POC ABG pCO2 ABG Hemoglobin ABG Oxyhemoglobin ABG Sodium ABG Chloride ABG Glucose Oxyhemoglobin Sodium Potassium Chloride Carbon Dioxide BUN Creatinine Glucose POC Glucose 167 H 179 H Lactic Acid Calcium Phosphorus Magnesium AST ALT Lactate Dehydrogenase Total Bilirubin Direct Bilirubin CK-MB (CK-2) C-Reactive Protein NT-Pro-B Natriuret Pep Total Protein Albumin Arterial Blood Glucose Urine WBC (Auto) Urine Creatinine 12/22/19 12/22/19 12/22/19 03:22 05:10 05:10 WBC 13.8 H RBC 3.20 L Hgb 8.9 L Hct 28.1 L MCHC RDW 15.9 H MCV MCH Lymph % (Auto) [place] % (Auto) [place] # Eos # Lymph # (Auto) [place] # (Auto) Eos # (Auto) Seg Neutrophils % Seg Neuts % (Manual) Baso # (Auto) Lymphocytes % (Manual) Monocytes % (Manual) Eosinophils % (Manual) Basophils % (Manual) Seg Neutrophils # Seg Neutrophils # Man Lymphocytes # (Manual) Monocytes # (Manual) Eosinophils # (Manual) Nucleated RBC % Basophils # (Manual) PT INR APTT Heparin Anti-Xa Level ABG pH POC ABG pO2 52.3 L ABG pO2 ABG HCO3 ABG O2 Saturation ABG Base Excess POC ABG pCO2 52.9 H ABG Hemoglobin 10.7 L ABG Oxyhemoglobin 84 L ABG Sodium ABG Chloride ABG Glucose Oxyhemoglobin Sodium Potassium Chloride 96.6 L Carbon Dioxide BUN 25 H Creatinine 0.7 L Glucose 129 H POC Glucose Lactic Acid Calcium Phosphorus Magnesium AST ALT Lactate Dehydrogenase Total Bilirubin Direct Bilirubin CK-MB (CK-2) C-Reactive Protein NT-Pro-B Natriuret Pep Total Protein Albumin Arterial Blood Glucose Urine WBC (Auto) Urine Creatinine 12/22/19 12/22/19 12/22/19 05:18 12:32 12:43 WBC RBC Hgb Hct MCHC RDW MCV MCH Lymph % (Auto) [place] % (Auto) [place] # Eos # Lymph # (Auto) [place] # (Auto) Eos # (Auto) Seg Neutrophils % Seg Neuts % (Manual) Baso # (Auto) Lymphocytes % (Manual) Monocytes % (Manual) Eosinophils % (Manual) Basophils % (Manual) Seg Neutrophils # Seg Neutrophils # Man Lymphocytes # (Manual) Monocytes # (Manual) Eosinophils # (Manual) Nucleated RBC % Basophils # (Manual) PT INR APTT Heparin Anti-Xa Level 0.18 L ABG pH POC ABG pO2 ABG pO2 ABG HCO3 ABG O2 Saturation ABG Base Excess POC ABG pCO2 ABG Hemoglobin ABG Oxyhemoglobin ABG Sodium ABG Chloride ABG Glucose Oxyhemoglobin Sodium Potassium Chloride Carbon Dioxide BUN Creatinine Glucose POC Glucose 131 H 208 H Lactic Acid Calcium Phosphorus Magnesium AST ALT Lactate Dehydrogenase Total Bilirubin Direct Bilirubin CK-MB (CK-2) C-Reactive Protein NT-Pro-B Natriuret Pep Total Protein Albumin Arterial Blood Glucose Urine WBC (Auto) Urine Creatinine 12/22/19 12/22/19 12/23/19 17:44 23:20 03:51 WBC 15.2 H RBC 3.43 L Hgb 9.6 L Hct 30.3 L MCHC RDW 15.9 H MCV MCH Lymph % (Auto) [place] % (Auto) [place] # Eos # Lymph # (Auto) [place] # (Auto) Eos # (Auto) Seg Neutrophils % Seg Neuts % (Manual) Baso # (Auto) Lymphocytes % (Manual) Monocytes % (Manual) Eosinophils % (Manual) Basophils % (Manual) Seg Neutrophils # Seg Neutrophils # Man Lymphocytes # (Manual) Monocytes # (Manual) Eosinophils # (Manual) Nucleated RBC % Basophils # (Manual) PT INR APTT Heparin Anti-Xa Level ABG pH POC ABG pO2 ABG pO2 ABG HCO3 ABG O2 Saturation ABG Base Excess POC ABG pCO2 ABG Hemoglobin ABG Oxyhemoglobin ABG Sodium ABG Chloride ABG Glucose Oxyhemoglobin Sodium Potassium Chloride Carbon Dioxide BUN Creatinine Glucose POC Glucose 209 H 119 H Lactic Acid Calcium Phosphorus Magnesium AST ALT Lactate Dehydrogenase Total Bilirubin Direct Bilirubin CK-MB (CK-2) C-Reactive Protein NT-Pro-B Natriuret Pep Total Protein Albumin Arterial Blood Glucose Urine WBC (Auto) Urine Creatinine 12/23/19 12/23/19 12/23/19 03:51 05:31 12:09 WBC RBC Hgb Hct MCHC RDW MCV MCH Lymph % (Auto) [place] % (Auto) [place] # Eos # Lymph # (Auto) [place] # (Auto) Eos # (Auto) Seg Neutrophils % Seg Neuts % (Manual) Baso # (Auto) Lymphocytes % (Manual) Monocytes % (Manual) Eosinophils % (Manual) Basophils % (Manual) Seg Neutrophils # Seg Neutrophils # Man Lymphocytes # (Manual) Monocytes # (Manual) Eosinophils # (Manual) Nucleated RBC % Basophils # (Manual) PT INR APTT Heparin Anti-Xa Level ABG pH POC ABG pO2 ABG pO2 ABG HCO3 ABG O2 Saturation ABG Base Excess POC ABG pCO2 ABG Hemoglobin ABG Oxyhemoglobin ABG Sodium ABG Chloride ABG Glucose Oxyhemoglobin Sodium Potassium Chloride 97.2 L Carbon Dioxide 31 H BUN 23 H Creatinine 0.6 L Glucose 153 H POC Glucose 149 H 144 H Lactic Acid Calcium Phosphorus Magnesium AST ALT Lactate Dehydrogenase Total Bilirubin Direct Bilirubin CK-MB (CK-2) C-Reactive Protein NT-Pro-B Natriuret Pep Total Protein Albumin Arterial Blood Glucose Urine WBC (Auto) Urine Creatinine 12/23/19 12/23/19 12/23/19 15:30 17:49 23:31 WBC RBC Hgb Hct MCHC RDW MCV MCH Lymph % (Auto) [place] % (Auto) [place] # Eos # Lymph # (Auto) [place] # (Auto) Eos # (Auto) Seg Neutrophils % Seg Neuts % (Manual) Baso # (Auto) Lymphocytes % (Manual) Monocytes % (Manual) Eosinophils % (Manual) Basophils % (Manual) Seg Neutrophils # Seg Neutrophils # Man Lymphocytes # (Manual) Monocytes # (Manual) Eosinophils # (Manual) Nucleated RBC % Basophils # (Manual) PT INR APTT Heparin Anti-Xa Level 0.21 L ABG pH POC ABG pO2 ABG pO2 ABG HCO3 ABG O2 Saturation ABG Base Excess POC ABG pCO2 ABG Hemoglobin ABG Oxyhemoglobin ABG Sodium ABG Chloride ABG Glucose Oxyhemoglobin Sodium Potassium Chloride Carbon Dioxide BUN Creatinine Glucose POC Glucose 192 H 151 H Lactic Acid Calcium Phosphorus Magnesium AST ALT Lactate Dehydrogenase Total Bilirubin Direct Bilirubin CK-MB (CK-2) C-Reactive Protein NT-Pro-B Natriuret Pep Total Protein Albumin Arterial Blood Glucose Urine WBC (Auto) Urine Creatinine 12/24/19 12/24/19 12/24/19 05:34 12:13 16:50 WBC RBC Hgb Hct MCHC RDW MCV MCH Lymph % (Auto) [place] % (Auto) [place] # Eos # Lymph # (Auto) [place] # (Auto) Eos # (Auto) Seg Neutrophils % Seg Neuts % (Manual) Baso # (Auto) Lymphocytes % (Manual) Monocytes % (Manual) Eosinophils % (Manual) Basophils % (Manual) Seg Neutrophils # Seg Neutrophils # Man Lymphocytes # (Manual) Monocytes # (Manual) Eosinophils # (Manual) Nucleated RBC % Basophils # (Manual) PT INR APTT Heparin Anti-Xa Level 0.16 L ABG pH POC ABG pO2 ABG pO2 ABG HCO3 ABG O2 Saturation ABG Base Excess POC ABG pCO2 ABG Hemoglobin ABG Oxyhemoglobin ABG Sodium ABG Chloride ABG Glucose Oxyhemoglobin Sodium Potassium Chloride Carbon Dioxide BUN Creatinine Glucose POC Glucose 145 H 124 H Lactic Acid Calcium Phosphorus Magnesium AST ALT Lactate Dehydrogenase Total Bilirubin Direct Bilirubin CK-MB (CK-2) C-Reactive Protein NT-Pro-B Natriuret Pep Total Protein Albumin Arterial Blood Glucose Urine WBC (Auto) Urine Creatinine 12/24/19 12/25/19 12/25/19 17:53 00:14 04:18 WBC 12.9 H RBC 3.30 L Hgb 9.1 L Hct 28.8 L MCHC RDW 16.4 H MCV MCH Lymph % (Auto) [place] % (Auto) 7.8 H [place] # Eos # Lymph # (Auto) [place] # (Auto) 1.0 H Eos # (Auto) Seg Neutrophils % 75.5 H Seg Neuts % (Manual) Baso # (Auto) Lymphocytes % (Manual) Monocytes % (Manual) Eosinophils % (Manual) Basophils % (Manual) Seg Neutrophils # 9.7 H Seg Neutrophils # Man Lymphocytes # (Manual) Monocytes # (Manual) Eosinophils # (Manual) Nucleated RBC % Basophils # (Manual) PT INR APTT Heparin Anti-Xa Level ABG pH POC ABG pO2 ABG pO2 ABG HCO3 ABG O2 Saturation ABG Base Excess POC ABG pCO2 ABG Hemoglobin ABG Oxyhemoglobin ABG Sodium ABG Chloride ABG Glucose Oxyhemoglobin Sodium Potassium Chloride Carbon Dioxide BUN Creatinine Glucose POC Glucose 164 H 148 H Lactic Acid Calcium Phosphorus Magnesium AST ALT Lactate Dehydrogenase Total Bilirubin Direct Bilirubin CK-MB (CK-2) C-Reactive Protein NT-Pro-B Natriuret Pep Total Protein Albumin Arterial Blood Glucose Urine WBC (Auto) Urine Creatinine 12/25/19 12/25/19 12/25/19 04:18 05:38 11:44 WBC RBC Hgb Hct MCHC RDW MCV MCH Lymph % (Auto) [place] % (Auto) [place] # Eos # Lymph # (Auto) [place] # (Auto) Eos # (Auto) Seg Neutrophils % Seg Neuts % (Manual) Baso # (Auto) Lymphocytes % (Manual) Monocytes % (Manual) Eosinophils % (Manual) Basophils % (Manual) Seg Neutrophils # Seg Neutrophils # Man Lymphocytes # (Manual) Monocytes # (Manual) Eosinophils # (Manual) Nucleated RBC % Basophils # (Manual) PT INR APTT Heparin Anti-Xa Level ABG pH POC ABG pO2 ABG pO2 ABG HCO3 ABG O2 Saturation ABG Base Excess POC ABG pCO2 ABG Hemoglobin ABG Oxyhemoglobin ABG Sodium ABG Chloride ABG Glucose Oxyhemoglobin Sodium Potassium Chloride Carbon Dioxide 33 H BUN 27 H Creatinine 0.6 L Glucose 132 H POC Glucose 152 H 166 H Lactic Acid Calcium Phosphorus Magnesium AST ALT Lactate Dehydrogenase Total Bilirubin Direct Bilirubin CK-MB (CK-2) C-Reactive Protein NT-Pro-B Natriuret Pep Total Protein Albumin Arterial Blood Glucose Urine WBC (Auto) Urine Creatinine 12/25/19 12/26/19 12/26/19 18:29 00:17 00:18 WBC RBC Hgb Hct MCHC RDW MCV MCH Lymph % (Auto) [place] % (Auto) [place] # Eos # Lymph # (Auto) [place] # (Auto) Eos # (Auto) Seg Neutrophils % Seg Neuts % (Manual) Baso # (Auto) Lymphocytes % (Manual) Monocytes % (Manual) Eosinophils % (Manual) Basophils % (Manual) Seg Neutrophils # Seg Neutrophils # Man Lymphocytes # (Manual) Monocytes # (Manual) Eosinophils # (Manual) Nucleated RBC % Basophils # (Manual) PT INR APTT Heparin Anti-Xa Level ABG pH POC ABG pO2 ABG pO2 ABG HCO3 ABG O2 Saturation ABG Base Excess POC ABG pCO2 ABG Hemoglobin ABG Oxyhemoglobin ABG Sodium ABG Chloride ABG Glucose Oxyhemoglobin Sodium Potassium Chloride 97.8 L Carbon Dioxide BUN 25 H Creatinine 0.6 L Glucose 140 H POC Glucose 194 H 151 H Lactic Acid Calcium Phosphorus Magnesium AST ALT Lactate Dehydrogenase Total Bilirubin Direct Bilirubin CK-MB (CK-2) C-Reactive Protein NT-Pro-B Natriuret Pep Total Protein Albumin Arterial Blood Glucose Urine WBC (Auto) Urine Creatinine 12/26/19 12/26/19 12/26/19 05:36 11:41 17:50 WBC RBC Hgb Hct MCHC RDW MCV MCH Lymph % (Auto) [place] % (Auto) [place] # Eos # Lymph # (Auto) [place] # (Auto) Eos # (Auto) Seg Neutrophils % Seg Neuts % (Manual) Baso # (Auto) Lymphocytes % (Manual) Monocytes % (Manual) Eosinophils % (Manual) Basophils % (Manual) Seg Neutrophils # Seg Neutrophils # Man Lymphocytes # (Manual) Monocytes # (Manual) Eosinophils # (Manual) Nucleated RBC % Basophils # (Manual) PT INR APTT Heparin Anti-Xa Level ABG pH POC ABG pO2 ABG pO2 ABG HCO3 ABG O2 Saturation ABG Base Excess POC ABG pCO2 ABG Hemoglobin ABG Oxyhemoglobin ABG Sodium ABG Chloride ABG Glucose Oxyhemoglobin Sodium Potassium Chloride Carbon Dioxide BUN Creatinine Glucose POC Glucose 156 H 148 H 139 H Lactic Acid Calcium Phosphorus Magnesium AST ALT Lactate Dehydrogenase Total Bilirubin Direct Bilirubin CK-MB (CK-2) C-Reactive Protein NT-Pro-B Natriuret Pep Total Protein Albumin Arterial Blood Glucose Urine WBC (Auto) Urine Creatinine 12/26/19 12/27/19 12/27/19 23:19 05:34 12:02 WBC RBC Hgb Hct MCHC RDW MCV MCH Lymph % (Auto) [place] % (Auto) [place] # Eos # Lymph # (Auto) [place] # (Auto) Eos # (Auto) Seg Neutrophils % Seg Neuts % (Manual) Baso # (Auto) Lymphocytes % (Manual) Monocytes % (Manual) Eosinophils % (Manual) Basophils % (Manual) Seg Neutrophils # Seg Neutrophils # Man Lymphocytes # (Manual) Monocytes # (Manual) Eosinophils # (Manual) Nucleated RBC % Basophils # (Manual) PT INR APTT Heparin Anti-Xa Level ABG pH POC ABG pO2 ABG pO2 ABG HCO3 ABG O2 Saturation ABG Base Excess POC ABG pCO2 ABG Hemoglobin ABG Oxyhemoglobin ABG Sodium ABG Chloride ABG Glucose Oxyhemoglobin Sodium Potassium Chloride Carbon Dioxide BUN Creatinine Glucose POC Glucose 161 H 145 H 157 H Lactic Acid Calcium Phosphorus Magnesium AST ALT Lactate Dehydrogenase Total Bilirubin Direct Bilirubin CK-MB (CK-2) C-Reactive Protein NT-Pro-B Natriuret Pep Total Protein Albumin Arterial Blood Glucose Urine WBC (Auto) Urine Creatinine 12/27/19 12/27/19 12/27/19 17:35 20:11 23:00 WBC RBC Hgb Hct MCHC RDW MCV MCH Lymph % (Auto) [place] % (Auto) [place] # Eos # Lymph # (Auto) [place] # (Auto) Eos # (Auto) Seg Neutrophils % Seg Neuts % (Manual) Baso # (Auto) Lymphocytes % (Manual) Monocytes % (Manual) Eosinophils % (Manual) Basophils % (Manual) Seg Neutrophils # Seg Neutrophils # Man Lymphocytes # (Manual) Monocytes # (Manual) Eosinophils # (Manual) Nucleated RBC % Basophils # (Manual) PT INR APTT Heparin Anti-Xa Level 0.19 L ABG pH POC ABG pO2 ABG pO2 ABG HCO3 ABG O2 Saturation ABG Base Excess POC ABG pCO2 ABG Hemoglobin ABG Oxyhemoglobin ABG Sodium ABG Chloride ABG Glucose Oxyhemoglobin Sodium Potassium Chloride Carbon Dioxide BUN Creatinine Glucose POC Glucose 158 H 155 H Lactic Acid Calcium Phosphorus Magnesium AST ALT Lactate Dehydrogenase Total Bilirubin Direct Bilirubin CK-MB (CK-2) C-Reactive Protein NT-Pro-B Natriuret Pep Total Protein Albumin Arterial Blood Glucose Urine WBC (Auto) Urine Creatinine 12/27/19 12/28/19 12/28/19 23:45 02:41 02:41 WBC 13.0 H RBC 3.48 L Hgb 9.5 L Hct 30.6 L MCHC 31 L RDW 16.6 H MCV MCH 27 L Lymph % (Auto) 13.0 L [place] % (Auto) 8.0 H [place] # Eos # Lymph # (Auto) [place] # (Auto) 1.0 H Eos # (Auto) Seg Neutrophils % 76.3 H Seg Neuts % (Manual) Baso # (Auto) Lymphocytes % (Manual) Monocytes % (Manual) Eosinophils % (Manual) Basophils % (Manual) Seg Neutrophils # 9.9 H Seg Neutrophils # Man Lymphocytes # (Manual) Monocytes # (Manual) Eosinophils # (Manual) Nucleated RBC % Basophils # (Manual) PT INR APTT Heparin Anti-Xa Level ABG pH POC ABG pO2 ABG pO2 ABG HCO3 ABG O2 Saturation ABG Base Excess POC ABG pCO2 ABG Hemoglobin ABG Oxyhemoglobin ABG Sodium ABG Chloride ABG Glucose Oxyhemoglobin Sodium Potassium Chloride Carbon Dioxide BUN 22 H Creatinine 0.6 L Glucose 101 H POC Glucose 130 H Lactic Acid Calcium Phosphorus Magnesium AST ALT Lactate Dehydrogenase Total Bilirubin Direct Bilirubin CK-MB (CK-2) C-Reactive Protein NT-Pro-B Natriuret Pep Total Protein Albumin Arterial Blood Glucose Urine WBC (Auto) Urine Creatinine 12/28/19 12/28/19 12/28/19 06:00 12:34 18:13 WBC RBC Hgb Hct MCHC RDW MCV MCH Lymph % (Auto) [place] % (Auto) [place] # Eos # Lymph # (Auto) [place] # (Auto) Eos # (Auto) Seg Neutrophils % Seg Neuts % (Manual) Baso # (Auto) Lymphocytes % (Manual) Monocytes % (Manual) Eosinophils % (Manual) Basophils % (Manual) Seg Neutrophils # Seg Neutrophils # Man Lymphocytes # (Manual) Monocytes # (Manual) Eosinophils # (Manual) Nucleated RBC % Basophils # (Manual) PT INR APTT Heparin Anti-Xa Level ABG pH POC ABG pO2 ABG pO2 ABG HCO3 ABG O2 Saturation ABG Base Excess POC ABG pCO2 ABG Hemoglobin ABG Oxyhemoglobin ABG Sodium ABG Chloride ABG Glucose Oxyhemoglobin Sodium Potassium Chloride Carbon Dioxide BUN Creatinine Glucose POC Glucose 150 H 161 H 128 H Lactic Acid Calcium Phosphorus Magnesium AST ALT Lactate Dehydrogenase Total Bilirubin Direct Bilirubin CK-MB (CK-2) C-Reactive Protein NT-Pro-B Natriuret Pep Total Protein Albumin Arterial Blood Glucose Urine WBC (Auto) Urine Creatinine 12/28/19 12/29/19 12/29/19 23:36 05:21 11:40 WBC RBC Hgb Hct MCHC RDW MCV MCH Lymph % (Auto) [place] % (Auto) [place] # Eos # Lymph # (Auto) [place] # (Auto) Eos # (Auto) Seg Neutrophils % Seg Neuts % (Manual) Baso # (Auto) Lymphocytes % (Manual) Monocytes % (Manual) Eosinophils % (Manual) Basophils % (Manual) Seg Neutrophils # Seg Neutrophils # Man Lymphocytes # (Manual) Monocytes # (Manual) Eosinophils # (Manual) Nucleated RBC % Basophils # (Manual) PT INR APTT Heparin Anti-Xa Level ABG pH POC ABG pO2 ABG pO2 ABG HCO3 ABG O2 Saturation ABG Base Excess POC ABG pCO2 ABG Hemoglobin ABG Oxyhemoglobin ABG Sodium ABG Chloride ABG Glucose Oxyhemoglobin Sodium Potassium Chloride Carbon Dioxide BUN Creatinine Glucose POC Glucose 137 H 136 H 166 H Lactic Acid Calcium Phosphorus Magnesium AST ALT Lactate Dehydrogenase Total Bilirubin Direct Bilirubin CK-MB (CK-2) C-Reactive Protein NT-Pro-B Natriuret Pep Total Protein Albumin Arterial Blood Glucose Urine WBC (Auto) Urine Creatinine 12/29/19 12/29/19 12/29/19 17:23 19:21 23:38 WBC RBC Hgb Hct MCHC RDW MCV MCH Lymph % (Auto) [place] % (Auto) [place] # Eos # Lymph # (Auto) [place] # (Auto) Eos # (Auto) Seg Neutrophils % Seg Neuts % (Manual) Baso # (Auto) Lymphocytes % (Manual) Monocytes % (Manual) Eosinophils % (Manual) Basophils % (Manual) Seg Neutrophils # Seg Neutrophils # Man Lymphocytes # (Manual) Monocytes # (Manual) Eosinophils # (Manual) Nucleated RBC % Basophils # (Manual) PT INR APTT Heparin Anti-Xa Level 0.20 L ABG pH POC ABG pO2 ABG pO2 ABG HCO3 ABG O2 Saturation ABG Base Excess POC ABG pCO2 ABG Hemoglobin ABG Oxyhemoglobin ABG Sodium ABG Chloride ABG Glucose Oxyhemoglobin Sodium Potassium Chloride Carbon Dioxide BUN Creatinine Glucose POC Glucose 144 H 141 H Lactic Acid Calcium Phosphorus Magnesium AST ALT Lactate Dehydrogenase Total Bilirubin Direct Bilirubin CK-MB (CK-2) C-Reactive Protein NT-Pro-B Natriuret Pep Total Protein Albumin Arterial Blood Glucose Urine WBC (Auto) Urine Creatinine 12/30/19 12/30/19 12/30/19 03:58 03:58 04:59 WBC RBC 3.54 L Hgb 9.8 L Hct 30.7 L MCHC RDW 16.8 H MCV MCH Lymph % (Auto) [place] % (Auto) [place] # Eos # Lymph # (Auto) [place] # (Auto) Eos # (Auto) Seg Neutrophils % Seg Neuts % (Manual) Baso # (Auto) Lymphocytes % (Manual) Monocytes % (Manual) Eosinophils % (Manual) Basophils % (Manual) Seg Neutrophils # Seg Neutrophils # Man Lymphocytes # (Manual) Monocytes # (Manual) Eosinophils # (Manual) Nucleated RBC % Basophils # (Manual) PT INR APTT Heparin Anti-Xa Level ABG pH POC ABG pO2 ABG pO2 ABG HCO3 29.8 H ABG O2 Saturation ABG Base Excess 4.8 H POC ABG pCO2 ABG Hemoglobin 11.2 L ABG Oxyhemoglobin ABG Sodium ABG Chloride ABG Glucose Oxyhemoglobin 93.8 L Sodium Potassium Chloride 97.8 L Carbon Dioxide BUN 26 H Creatinine Glucose 168 H POC Glucose Lactic Acid Calcium Phosphorus Magnesium AST ALT Lactate Dehydrogenase Total Bilirubin Direct Bilirubin CK-MB (CK-2) C-Reactive Protein NT-Pro-B Natriuret Pep Total Protein Albumin Arterial Blood Glucose Urine WBC (Auto) Urine Creatinine 12/30/19 12/30/19 12/30/19 05:45 11:34 17:28 WBC RBC Hgb Hct MCHC RDW MCV MCH Lymph % (Auto) [place] % (Auto) [place] # Eos # Lymph # (Auto) [place] # (Auto) Eos # (Auto) Seg Neutrophils % Seg Neuts % (Manual) Baso # (Auto) Lymphocytes % (Manual) Monocytes % (Manual) Eosinophils % (Manual) Basophils % (Manual) Seg Neutrophils # Seg Neutrophils # Man Lymphocytes # (Manual) Monocytes # (Manual) Eosinophils # (Manual) Nucleated RBC % Basophils # (Manual) PT INR APTT Heparin Anti-Xa Level ABG pH POC ABG pO2 ABG pO2 ABG HCO3 ABG O2 Saturation ABG Base Excess POC ABG pCO2 ABG Hemoglobin ABG Oxyhemoglobin ABG Sodium ABG Chloride ABG Glucose Oxyhemoglobin Sodium Potassium Chloride Carbon Dioxide BUN Creatinine Glucose POC Glucose 163 H 180 H 150 H Lactic Acid Calcium Phosphorus Magnesium AST ALT Lactate Dehydrogenase Total Bilirubin Direct Bilirubin CK-MB (CK-2) C-Reactive Protein NT-Pro-B Natriuret Pep Total Protein Albumin Arterial Blood Glucose Urine WBC (Auto) Urine Creatinine 12/30/19 12/31/19 12/31/19 23:43 04:55 05:07 WBC RBC Hgb Hct MCHC RDW MCV MCH Lymph % (Auto) [place] % (Auto) [place] # Eos # Lymph # (Auto) [place] # (Auto) Eos # (Auto) Seg Neutrophils % Seg Neuts % (Manual) Baso # (Auto) Lymphocytes % (Manual) Monocytes % (Manual) Eosinophils % (Manual) Basophils % (Manual) Seg Neutrophils # Seg Neutrophils # Man Lymphocytes # (Manual) Monocytes # (Manual) Eosinophils # (Manual) Nucleated RBC % Basophils # (Manual) PT INR APTT Heparin Anti-Xa Level ABG pH POC ABG pO2 ABG pO2 ABG HCO3 ABG O2 Saturation ABG Base Excess POC ABG pCO2 ABG Hemoglobin ABG Oxyhemoglobin ABG Sodium ABG Chloride ABG Glucose Oxyhemoglobin Sodium Potassium 5.6 H D Chloride Carbon Dioxide BUN 33 H Creatinine Glucose 131 H POC Glucose 142 H 134 H Lactic Acid Calcium Phosphorus Magnesium AST ALT Lactate Dehydrogenase Total Bilirubin Direct Bilirubin CK-MB (CK-2) C-Reactive Protein NT-Pro-B Natriuret Pep Total Protein Albumin Arterial Blood Glucose Urine WBC (Auto) Urine Creatinine 12/31/19 12/31/19 12/31/19 11:30 17:19 17:36 WBC RBC Hgb Hct MCHC RDW MCV MCH Lymph % (Auto) [place] % (Auto) [place] # Eos # Lymph # (Auto) [place] # (Auto) Eos # (Auto) Seg Neutrophils % Seg Neuts % (Manual) Baso # (Auto) Lymphocytes % (Manual) Monocytes % (Manual) Eosinophils % (Manual) Basophils % (Manual) Seg Neutrophils # Seg Neutrophils # Man Lymphocytes # (Manual) Monocytes # (Manual) Eosinophils # (Manual) Nucleated RBC % Basophils # (Manual) PT INR APTT Heparin Anti-Xa Level ABG pH POC ABG pO2 ABG pO2 ABG HCO3 ABG O2 Saturation ABG Base Excess POC ABG pCO2 ABG Hemoglobin ABG Oxyhemoglobin ABG Sodium ABG Chloride ABG Glucose Oxyhemoglobin Sodium Potassium Chloride Carbon Dioxide BUN 35 H Creatinine Glucose 156 H POC Glucose 158 H 181 H Lactic Acid Calcium Phosphorus Magnesium AST ALT Lactate Dehydrogenase Total Bilirubin Direct Bilirubin CK-MB (CK-2) C-Reactive Protein NT-Pro-B Natriuret Pep Total Protein Albumin Arterial Blood Glucose Urine WBC (Auto) Urine Creatinine 12/31/19 12/31/19 12/31/19 18:16 19:41 21:53 WBC RBC Hgb Hct MCHC RDW MCV MCH Lymph % (Auto) [place] % (Auto) [place] # Eos # Lymph # (Auto) [place] # (Auto) Eos # (Auto) Seg Neutrophils % Seg Neuts % (Manual) Baso # (Auto) Lymphocytes % (Manual) Monocytes % (Manual) Eosinophils % (Manual) Basophils % (Manual) Seg Neutrophils # Seg Neutrophils # Man Lymphocytes # (Manual) Monocytes # (Manual) Eosinophils # (Manual) Nucleated RBC % Basophils # (Manual) PT INR APTT Heparin Anti-Xa Level 0.20 L ABG pH POC ABG pO2 ABG pO2 ABG HCO3 ABG O2 Saturation ABG Base Excess POC ABG pCO2 ABG Hemoglobin ABG Oxyhemoglobin ABG Sodium ABG Chloride ABG Glucose Oxyhemoglobin Sodium Potassium Chloride Carbon Dioxide BUN 34 H Creatinine Glucose 169 H POC Glucose 141 H Lactic Acid Calcium Phosphorus Magnesium AST ALT Lactate Dehydrogenase Total Bilirubin Direct Bilirubin CK-MB (CK-2) C-Reactive Protein NT-Pro-B Natriuret Pep Total Protein Albumin Arterial Blood Glucose Urine WBC (Auto) Urine Creatinine 12/31/19 01/01/20 01/01/20 23:51 05:17 10:40 WBC RBC Hgb Hct MCHC RDW MCV MCH Lymph % (Auto) [place] % (Auto) [place] # Eos # Lymph # (Auto) [place] # (Auto) Eos # (Auto) Seg Neutrophils % Seg Neuts % (Manual) Baso # (Auto) Lymphocytes % (Manual) Monocytes % (Manual) Eosinophils % (Manual) Basophils % (Manual) Seg Neutrophils # Seg Neutrophils # Man Lymphocytes # (Manual) Monocytes # (Manual) Eosinophils # (Manual) Nucleated RBC % Basophils # (Manual) PT INR APTT Heparin Anti-Xa Level ABG pH POC ABG pO2 ABG pO2 ABG HCO3 ABG O2 Saturation ABG Base Excess POC ABG pCO2 ABG Hemoglobin ABG Oxyhemoglobin ABG Sodium ABG Chloride ABG Glucose Oxyhemoglobin Sodium Potassium Chloride Carbon Dioxide BUN 31 H Creatinine 0.7 L Glucose 137 H POC Glucose 131 H 155 H Lactic Acid Calcium Phosphorus Magnesium AST 73 H ALT 97 H Lactate Dehydrogenase Total Bilirubin Direct Bilirubin CK-MB (CK-2) C-Reactive Protein NT-Pro-B Natriuret Pep 3866 H Total Protein Albumin 2.8 L Arterial Blood Glucose Urine WBC (Auto) Urine Creatinine 01/01/20 01/01/20 01/01/20 12:26 15:33 17:53 WBC 14.3 H RBC 3.35 L Hgb 9.1 L Hct 28.8 L MCHC RDW 17.0 H MCV MCH 27 L Lymph % (Auto) 7.0 L [place] % (Auto) 7.6 H [place] # Eos # Lymph # (Auto) 1.0 L [place] # (Auto) 1.1 H Eos # (Auto) Seg Neutrophils % 83.3 H Seg Neuts % (Manual) Baso # (Auto) Lymphocytes % (Manual) Monocytes % (Manual) Eosinophils % (Manual) Basophils % (Manual) Seg Neutrophils # 12.0 H Seg Neutrophils # Man Lymphocytes # (Manual) Monocytes # (Manual) Eosinophils # (Manual) Nucleated RBC % Basophils # (Manual) PT INR APTT Heparin Anti-Xa Level ABG pH POC ABG pO2 ABG pO2 ABG HCO3 ABG O2 Saturation ABG Base Excess POC ABG pCO2 ABG Hemoglobin ABG Oxyhemoglobin ABG Sodium ABG Chloride ABG Glucose Oxyhemoglobin Sodium Potassium Chloride Carbon Dioxide BUN Creatinine Glucose POC Glucose 128 H 128 H Lactic Acid Calcium Phosphorus Magnesium AST ALT Lactate Dehydrogenase Total Bilirubin Direct Bilirubin CK-MB (CK-2) C-Reactive Protein NT-Pro-B Natriuret Pep Total Protein Albumin Arterial Blood Glucose Urine WBC (Auto) Urine Creatinine 01/01/20 01/02/20 01/02/20 23:04 05:39 07:00 WBC RBC Hgb Hct MCHC RDW MCV MCH Lymph % (Auto) [place] % (Auto) [place] # Eos # Lymph # (Auto) [place] # (Auto) Eos # (Auto) Seg Neutrophils % Seg Neuts % (Manual) Baso # (Auto) Lymphocytes % (Manual) Monocytes % (Manual) Eosinophils % (Manual) Basophils % (Manual) Seg Neutrophils # Seg Neutrophils # Man Lymphocytes # (Manual) Monocytes # (Manual) Eosinophils # (Manual) Nucleated RBC % Basophils # (Manual) PT INR APTT Heparin Anti-Xa Level 0.13 L ABG pH POC ABG pO2 ABG pO2 ABG HCO3 ABG O2 Saturation ABG Base Excess POC ABG pCO2 ABG Hemoglobin ABG Oxyhemoglobin ABG Sodium ABG Chloride ABG Glucose Oxyhemoglobin Sodium Potassium Chloride Carbon Dioxide BUN Creatinine Glucose POC Glucose 120 H 169 H Lactic Acid Calcium Phosphorus Magnesium AST ALT Lactate Dehydrogenase Total Bilirubin Direct Bilirubin CK-MB (CK-2) C-Reactive Protein NT-Pro-B Natriuret Pep Total Protein Albumin Arterial Blood Glucose Urine WBC (Auto) Urine Creatinine 01/02/20 01/02/20 01/02/20 12:15 14:06 17:58 WBC RBC Hgb Hct MCHC RDW MCV MCH Lymph % (Auto) [place] % (Auto) [place] # Eos # Lymph # (Auto) [place] # (Auto) Eos # (Auto) Seg Neutrophils % Seg Neuts % (Manual) Baso # (Auto) Lymphocytes % (Manual) Monocytes % (Manual) Eosinophils % (Manual) Basophils % (Manual) Seg Neutrophils # Seg Neutrophils # Man Lymphocytes # (Manual) Monocytes # (Manual) Eosinophils # (Manual) Nucleated RBC % Basophils # (Manual) PT INR APTT Heparin Anti-Xa Level < 0.10 L ABG pH POC ABG pO2 ABG pO2 ABG HCO3 ABG O2 Saturation ABG Base Excess POC ABG pCO2 ABG Hemoglobin ABG Oxyhemoglobin ABG Sodium ABG Chloride ABG Glucose Oxyhemoglobin Sodium Potassium Chloride Carbon Dioxide BUN Creatinine Glucose POC Glucose 190 H 198 H Lactic Acid Calcium Phosphorus Magnesium AST ALT Lactate Dehydrogenase Total Bilirubin Direct Bilirubin CK-MB (CK-2) C-Reactive Protein NT-Pro-B Natriuret Pep Total Protein Albumin Arterial Blood Glucose Urine WBC (Auto) Urine Creatinine 01/02/20 01/02/20 01/03/20 21:43 23:33 05:42 WBC RBC Hgb Hct MCHC RDW MCV MCH Lymph % (Auto) [place] % (Auto) [place] # Eos # Lymph # (Auto) [place] # (Auto) Eos # (Auto) Seg Neutrophils % Seg Neuts % (Manual) Baso # (Auto) Lymphocytes % (Manual) Monocytes % (Manual) Eosinophils % (Manual) Basophils % (Manual) Seg Neutrophils # Seg Neutrophils # Man Lymphocytes # (Manual) Monocytes # (Manual) Eosinophils # (Manual) Nucleated RBC % Basophils # (Manual) PT INR APTT Heparin Anti-Xa Level 0.10 L ABG pH POC ABG pO2 ABG pO2 ABG HCO3 ABG O2 Saturation ABG Base Excess POC ABG pCO2 ABG Hemoglobin ABG Oxyhemoglobin ABG Sodium ABG Chloride ABG Glucose Oxyhemoglobin Sodium Potassium Chloride Carbon Dioxide BUN Creatinine Glucose POC Glucose 180 H 163 H Lactic Acid Calcium Phosphorus Magnesium AST ALT Lactate Dehydrogenase Total Bilirubin Direct Bilirubin CK-MB (CK-2) C-Reactive Protein NT-Pro-B Natriuret Pep Total Protein Albumin Arterial Blood Glucose Urine WBC (Auto) Urine Creatinine 01/03/20 01/03/20 01/03/20 06:50 07:25 07:45 WBC 12.1 H RBC 3.35 L Hgb 9.0 L Hct 28.9 L MCHC 31 L RDW 16.6 H MCV MCH 27 L Lymph % (Auto) 13.0 L [place] % (Auto) 8.6 H [place] # Eos # Lymph # (Auto) [place] # (Auto) 1.0 H Eos # (Auto) Seg Neutrophils % 75.9 H Seg Neuts % (Manual) Baso # (Auto) Lymphocytes % (Manual) Monocytes % (Manual) Eosinophils % (Manual) Basophils % (Manual) Seg Neutrophils # 9.2 H Seg Neutrophils # Man Lymphocytes # (Manual) Monocytes # (Manual) Eosinophils # (Manual) Nucleated RBC % Basophils # (Manual) PT INR APTT Heparin Anti-Xa Level 0.29 L ABG pH POC ABG pO2 ABG pO2 ABG HCO3 ABG O2 Saturation ABG Base Excess POC ABG pCO2 ABG Hemoglobin ABG Oxyhemoglobin ABG Sodium ABG Chloride ABG Glucose Oxyhemoglobin Sodium Potassium 3.3 L D Chloride Carbon Dioxide 35 H D BUN 23 H Creatinine 0.6 L Glucose 149 H POC Glucose Lactic Acid Calcium Phosphorus Magnesium AST ALT 88 H Lactate Dehydrogenase Total Bilirubin Direct Bilirubin CK-MB (CK-2) C-Reactive Protein NT-Pro-B Natriuret Pep Total Protein 6.2 L Albumin 2.9 L Arterial Blood Glucose Urine WBC (Auto) Urine Creatinine 01/03/20 01/03/20 01/03/20 12:05 17:42 18:30 WBC RBC Hgb Hct MCHC RDW MCV MCH Lymph % (Auto) [place] % (Auto) [place] # Eos # Lymph # (Auto) [place] # (Auto) Eos # (Auto) Seg Neutrophils % Seg Neuts % (Manual) Baso # (Auto) Lymphocytes % (Manual) Monocytes % (Manual) Eosinophils % (Manual) Basophils % (Manual) Seg Neutrophils # Seg Neutrophils # Man Lymphocytes # (Manual) Monocytes # (Manual) Eosinophils # (Manual) Nucleated RBC % Basophils # (Manual) PT INR APTT Heparin Anti-Xa Level ABG pH POC ABG pO2 ABG pO2 70.7 L ABG HCO3 36.1 H ABG O2 Saturation 94.4 L ABG Base Excess 10.0 H POC ABG pCO2 ABG Hemoglobin 9.7 L ABG Oxyhemoglobin ABG Sodium ABG Chloride ABG Glucose Oxyhemoglobin 91.8 L Sodium Potassium Chloride Carbon Dioxide BUN Creatinine Glucose POC Glucose 128 H 132 H Lactic Acid Calcium Phosphorus Magnesium AST ALT Lactate Dehydrogenase Total Bilirubin Direct Bilirubin CK-MB (CK-2) C-Reactive Protein NT-Pro-B Natriuret Pep Total Protein Albumin Arterial Blood Glucose Urine WBC (Auto) Urine Creatinine 01/04/20 01/04/20 01/04/20 00:10 04:26 05:23 WBC RBC Hgb Hct MCHC RDW MCV MCH Lymph % (Auto) [place] % (Auto) [place] # Eos # Lymph # (Auto) [place] # (Auto) Eos # (Auto) Seg Neutrophils % Seg Neuts % (Manual) Baso # (Auto) Lymphocytes % (Manual) Monocytes % (Manual) Eosinophils % (Manual) Basophils % (Manual) Seg Neutrophils # Seg Neutrophils # Man Lymphocytes # (Manual) Monocytes # (Manual) Eosinophils # (Manual) Nucleated RBC % Basophils # (Manual) PT INR APTT Heparin Anti-Xa Level 0.16 L ABG pH POC ABG pO2 ABG pO2 ABG HCO3 ABG O2 Saturation ABG Base Excess POC ABG pCO2 ABG Hemoglobin ABG Oxyhemoglobin ABG Sodium ABG Chloride ABG Glucose Oxyhemoglobin Sodium Potassium Chloride Carbon Dioxide BUN Creatinine Glucose POC Glucose 121 H 119 H Lactic Acid Calcium Phosphorus Magnesium AST ALT Lactate Dehydrogenase Total Bilirubin Direct Bilirubin CK-MB (CK-2) C-Reactive Protein NT-Pro-B Natriuret Pep Total Protein Albumin Arterial Blood Glucose Urine WBC (Auto) Urine Creatinine 01/04/20 01/04/20 01/04/20 09:50 09:50 12:18 WBC 15.4 H RBC 3.30 L Hgb 8.7 L Hct 28.2 L MCHC 31 L RDW 17.0 H MCV MCH 26 L Lymph % (Auto) [place] % (Auto) 7.6 H [place] # Eos # Lymph # (Auto) [place] # (Auto) 1.2 H Eos # (Auto) Seg Neutrophils % 75.4 H Seg Neuts % (Manual) Baso # (Auto) Lymphocytes % (Manual) Monocytes % (Manual) Eosinophils % (Manual) Basophils % (Manual) Seg Neutrophils # 11.6 H Seg Neutrophils # Man Lymphocytes # (Manual) Monocytes # (Manual) Eosinophils # (Manual) Nucleated RBC % Basophils # (Manual) PT INR APTT Heparin Anti-Xa Level ABG pH POC ABG pO2 ABG pO2 ABG HCO3 ABG O2 Saturation ABG Base Excess POC ABG pCO2 ABG Hemoglobin ABG Oxyhemoglobin ABG Sodium ABG Chloride ABG Glucose Oxyhemoglobin Sodium 148 H Potassium 3.5 L Chloride Carbon Dioxide 32 H BUN Creatinine 0.6 L Glucose 114 H POC Glucose 111 H Lactic Acid Calcium Phosphorus Magnesium AST ALT 59 H Lactate Dehydrogenase Total Bilirubin Direct Bilirubin CK-MB (CK-2) C-Reactive Protein NT-Pro-B Natriuret Pep Total Protein Albumin 2.6 L Arterial Blood Glucose Urine WBC (Auto) Urine Creatinine 01/05/20 01/05/20 01/05/20 04:05 04:05 05:19 WBC 11.7 H RBC 3.50 L Hgb 9.3 L Hct 29.9 L MCHC 31 L RDW 16.6 H MCV MCH 27 L Lymph % (Auto) 13.1 L [place] % (Auto) 9.7 H [place] # Eos # Lymph # (Auto) [place] # (Auto) 1.1 H Eos # (Auto) Seg Neutrophils % 74.0 H Seg Neuts % (Manual) Baso # (Auto) Lymphocytes % (Manual) Monocytes % (Manual) Eosinophils % (Manual) Basophils % (Manual) Seg Neutrophils # 8.6 H Seg Neutrophils # Man Lymphocytes # (Manual) Monocytes # (Manual) Eosinophils # (Manual) Nucleated RBC % Basophils # (Manual) PT INR APTT Heparin Anti-Xa Level ABG pH POC ABG pO2 ABG pO2 ABG HCO3 ABG O2 Saturation ABG Base Excess POC ABG pCO2 ABG Hemoglobin ABG Oxyhemoglobin ABG Sodium ABG Chloride ABG Glucose Oxyhemoglobin Sodium 151 H Potassium Chloride Carbon Dioxide 34 H BUN Creatinine 0.7 L Glucose POC Glucose 112 H Lactic Acid Calcium Phosphorus Magnesium AST ALT 59 H Lactate Dehydrogenase Total Bilirubin Direct Bilirubin CK-MB (CK-2) C-Reactive Protein NT-Pro-B Natriuret Pep Total Protein 5.8 L Albumin 2.6 L Arterial Blood Glucose Urine WBC (Auto) Urine Creatinine 01/05/20 01/06/20 01/06/20 16:04 00:23 04:44 WBC RBC 3.36 L Hgb 8.9 L Hct 28.7 L MCHC 31 L RDW 16.9 H MCV MCH 26 L Lymph % (Auto) [place] % (Auto) 9.4 H [place] # Eos # Lymph # (Auto) [place] # (Auto) Eos # (Auto) Seg Neutrophils % Seg Neuts % (Manual) Baso # (Auto) Lymphocytes % (Manual) Monocytes % (Manual) Eosinophils % (Manual) Basophils % (Manual) Seg Neutrophils # Seg Neutrophils # Man Lymphocytes # (Manual) Monocytes # (Manual) Eosinophils # (Manual) Nucleated RBC % Basophils # (Manual) PT INR APTT Heparin Anti-Xa Level ABG pH POC ABG pO2 ABG pO2 ABG HCO3 ABG O2 Saturation ABG Base Excess POC ABG pCO2 ABG Hemoglobin ABG Oxyhemoglobin ABG Sodium ABG Chloride ABG Glucose Oxyhemoglobin Sodium 151 H Potassium 3.2 L Chloride Carbon Dioxide 34 H BUN Creatinine 0.6 L Glucose POC Glucose 107 H Lactic Acid Calcium Phosphorus Magnesium AST ALT Lactate Dehydrogenase Total Bilirubin Direct Bilirubin CK-MB (CK-2) C-Reactive Protein NT-Pro-B Natriuret Pep Total Protein Albumin Arterial Blood Glucose Urine WBC (Auto) Urine Creatinine 01/06/20 01/06/20 01/06/20 04:44 05:33 12:04 WBC RBC Hgb Hct MCHC RDW MCV MCH Lymph % (Auto) [place] % (Auto) [place] # Eos # Lymph # (Auto) [place] # (Auto) Eos # (Auto) Seg Neutrophils % Seg Neuts % (Manual) Baso # (Auto) Lymphocytes % (Manual) Monocytes % (Manual) Eosinophils % (Manual) Basophils % (Manual) Seg Neutrophils # Seg Neutrophils # Man Lymphocytes # (Manual) Monocytes # (Manual) Eosinophils # (Manual) Nucleated RBC % Basophils # (Manual) PT INR APTT Heparin Anti-Xa Level ABG pH POC ABG pO2 ABG pO2 ABG HCO3 ABG O2 Saturation ABG Base Excess POC ABG pCO2 ABG Hemoglobin ABG Oxyhemoglobin ABG Sodium ABG Chloride ABG Glucose Oxyhemoglobin Sodium 151 H Potassium 3.4 L Chloride Carbon Dioxide 33 H BUN Creatinine 0.6 L Glucose 118 H POC Glucose 118 H 123 H Lactic Acid Calcium Phosphorus Magnesium AST ALT Lactate Dehydrogenase Total Bilirubin Direct Bilirubin CK-MB (CK-2) C-Reactive Protein NT-Pro-B Natriuret Pep Total Protein 6.2 L Albumin 2.6 L Arterial Blood Glucose Urine WBC (Auto) Urine Creatinine 01/06/20 01/07/20 01/07/20 17:54 00:06 04:10 WBC RBC 3.42 L Hgb 8.9 L Hct 29.0 L MCHC 31 L RDW 17.1 H MCV MCH 26 L Lymph % (Auto) [place] % (Auto) 8.4 H [place] # Eos # Lymph # (Auto) [place] # (Auto) Eos # (Auto) Seg Neutrophils % Seg Neuts % (Manual) Baso # (Auto) Lymphocytes % (Manual) Monocytes % (Manual) Eosinophils % (Manual) Basophils % (Manual) Seg Neutrophils # Seg Neutrophils # Man Lymphocytes # (Manual) Monocytes # (Manual) Eosinophils # (Manual) Nucleated RBC % Basophils # (Manual) PT INR APTT Heparin Anti-Xa Level ABG pH POC ABG pO2 ABG pO2 ABG HCO3 ABG O2 Saturation ABG Base Excess POC ABG pCO2 ABG Hemoglobin ABG Oxyhemoglobin ABG Sodium ABG Chloride ABG Glucose Oxyhemoglobin Sodium Potassium Chloride Carbon Dioxide BUN Creatinine Glucose POC Glucose 112 H 126 H Lactic Acid Calcium Phosphorus Magnesium AST ALT Lactate Dehydrogenase Total Bilirubin Direct Bilirubin CK-MB (CK-2) C-Reactive Protein NT-Pro-B Natriuret Pep Total Protein Albumin Arterial Blood Glucose Urine WBC (Auto) Urine Creatinine 01/07/20 01/07/20 01/07/20 04:10 05:59 12:27 WBC RBC Hgb Hct MCHC RDW MCV MCH Lymph % (Auto) [place] % (Auto) [place] # Eos # Lymph # (Auto) [place] # (Auto) Eos # (Auto) Seg Neutrophils % Seg Neuts % (Manual) Baso # (Auto) Lymphocytes % (Manual) Monocytes % (Manual) Eosinophils % (Manual) Basophils % (Manual) Seg Neutrophils # Seg Neutrophils # Man Lymphocytes # (Manual) Monocytes # (Manual) Eosinophils # (Manual) Nucleated RBC % Basophils # (Manual) PT INR APTT Heparin Anti-Xa Level ABG pH POC ABG pO2 ABG pO2 ABG HCO3 ABG O2 Saturation ABG Base Excess POC ABG pCO2 ABG Hemoglobin ABG Oxyhemoglobin ABG Sodium ABG Chloride ABG Glucose Oxyhemoglobin Sodium 153 H Potassium 3.5 L Chloride Carbon Dioxide 34 H BUN Creatinine 0.6 L Glucose 121 H POC Glucose 121 H 126 H Lactic Acid Calcium Phosphorus Magnesium AST ALT Lactate Dehydrogenase Total Bilirubin Direct Bilirubin CK-MB (CK-2) C-Reactive Protein NT-Pro-B Natriuret Pep Total Protein 5.9 L Albumin 2.4 L Arterial Blood Glucose Urine WBC (Auto) Urine Creatinine 01/07/20 01/08/20 01/08/20 18:12 00:03 05:41 WBC RBC Hgb Hct MCHC RDW MCV MCH Lymph % (Auto) [place] % (Auto) [place] # Eos # Lymph # (Auto) [place] # (Auto) Eos # (Auto) Seg Neutrophils % Seg Neuts % (Manual) Baso # (Auto) Lymphocytes % (Manual) Monocytes % (Manual) Eosinophils % (Manual) Basophils % (Manual) Seg Neutrophils # Seg Neutrophils # Man Lymphocytes # (Manual) Monocytes # (Manual) Eosinophils # (Manual) Nucleated RBC % Basophils # (Manual) PT INR APTT Heparin Anti-Xa Level ABG pH POC ABG pO2 ABG pO2 ABG HCO3 ABG O2 Saturation ABG Base Excess POC ABG pCO2 ABG Hemoglobin ABG Oxyhemoglobin ABG Sodium ABG Chloride ABG Glucose Oxyhemoglobin Sodium Potassium Chloride Carbon Dioxide BUN Creatinine Glucose POC Glucose 124 H 130 H 138 H Lactic Acid Calcium Phosphorus Magnesium AST ALT Lactate Dehydrogenase Total Bilirubin Direct Bilirubin CK-MB (CK-2) C-Reactive Protein NT-Pro-B Natriuret Pep Total Protein Albumin Arterial Blood Glucose Urine WBC (Auto) Urine Creatinine 01/08/20 01/08/20 01/08/20 09:28 11:42 18:21 WBC RBC Hgb Hct MCHC RDW MCV MCH Lymph % (Auto) [place] % (Auto) [place] # Eos # Lymph # (Auto) [place] # (Auto) Eos # (Auto) Seg Neutrophils % Seg Neuts % (Manual) Baso # (Auto) Lymphocytes % (Manual) Monocytes % (Manual) Eosinophils % (Manual) Basophils % (Manual) Seg Neutrophils # Seg Neutrophils # Man Lymphocytes # (Manual) Monocytes # (Manual) Eosinophils # (Manual) Nucleated RBC % Basophils # (Manual) PT INR APTT Heparin Anti-Xa Level ABG pH POC ABG pO2 ABG pO2 ABG HCO3 ABG O2 Saturation ABG Base Excess POC ABG pCO2 ABG Hemoglobin ABG Oxyhemoglobin ABG Sodium ABG Chloride ABG Glucose Oxyhemoglobin Sodium Potassium Chloride Carbon Dioxide BUN Creatinine Glucose POC Glucose 181 H 150 H 129 H Lactic Acid Calcium Phosphorus Magnesium AST ALT Lactate Dehydrogenase Total Bilirubin Direct Bilirubin CK-MB (CK-2) C-Reactive Protein NT-Pro-B Natriuret Pep Total Protein Albumin Arterial Blood Glucose Urine WBC (Auto) Urine Creatinine 01/08/20 01/08/20 01/09/20 19:25 23:55 04:11 WBC RBC 3.43 L Hgb 8.9 L Hct 28.7 L MCHC 31 L RDW 17.6 H MCV MCH 26 L Lymph % (Auto) [place] % (Auto) 8.6 H [place] # Eos # Lymph # (Auto) [place] # (Auto) Eos # (Auto) Seg Neutrophils % Seg Neuts % (Manual) Baso # (Auto) Lymphocytes % (Manual) Monocytes % (Manual) Eosinophils % (Manual) Basophils % (Manual) Seg Neutrophils # Seg Neutrophils # Man Lymphocytes # (Manual) Monocytes # (Manual) Eosinophils # (Manual) Nucleated RBC % Basophils # (Manual) PT INR APTT Heparin Anti-Xa Level ABG pH POC ABG pO2 ABG pO2 ABG HCO3 ABG O2 Saturation ABG Base Excess POC ABG pCO2 ABG Hemoglobin ABG Oxyhemoglobin ABG Sodium ABG Chloride ABG Glucose Oxyhemoglobin Sodium Potassium Chloride Carbon Dioxide BUN Creatinine 0.7 L Glucose 117 H POC Glucose 132 H Lactic Acid Calcium Phosphorus Magnesium AST ALT Lactate Dehydrogenase Total Bilirubin Direct Bilirubin CK-MB (CK-2) C-Reactive Protein NT-Pro-B Natriuret Pep Total Protein Albumin Arterial Blood Glucose Urine WBC (Auto) Urine Creatinine 01/09/20 01/09/20 01/09/20 04:11 05:38 22:58 WBC RBC Hgb Hct MCHC RDW MCV MCH Lymph % (Auto) [place] % (Auto) [place] # Eos # Lymph # (Auto) [place] # (Auto) Eos # (Auto) Seg Neutrophils % Seg Neuts % (Manual) Baso # (Auto) Lymphocytes % (Manual) Monocytes % (Manual) Eosinophils % (Manual) Basophils % (Manual) Seg Neutrophils # Seg Neutrophils # Man Lymphocytes # (Manual) Monocytes # (Manual) Eosinophils # (Manual) Nucleated RBC % Basophils # (Manual) PT INR APTT Heparin Anti-Xa Level ABG pH POC ABG pO2 ABG pO2 ABG HCO3 ABG O2 Saturation ABG Base Excess POC ABG pCO2 ABG Hemoglobin ABG Oxyhemoglobin ABG Sodium ABG Chloride ABG Glucose Oxyhemoglobin Sodium 147 H Potassium 3.3 L D Chloride Carbon Dioxide 32 H BUN Creatinine 0.6 L Glucose 106 H POC Glucose 107 H 113 H Lactic Acid Calcium Phosphorus Magnesium AST ALT Lactate Dehydrogenase Total Bilirubin Direct Bilirubin CK-MB (CK-2) C-Reactive Protein NT-Pro-B Natriuret Pep Total Protein Albumin Arterial Blood Glucose Urine WBC (Auto) Urine Creatinine 01/10/20 01/10/20 01/10/20 04:05 11:36 17:54 WBC RBC Hgb Hct MCHC RDW MCV MCH Lymph % (Auto) [place] % (Auto) [place] # Eos # Lymph # (Auto) [place] # (Auto) Eos # (Auto) Seg Neutrophils % Seg Neuts % (Manual) Baso # (Auto) Lymphocytes % (Manual) Monocytes % (Manual) Eosinophils % (Manual) Basophils % (Manual) Seg Neutrophils # Seg Neutrophils # Man Lymphocytes # (Manual) Monocytes # (Manual) Eosinophils # (Manual) Nucleated RBC % Basophils # (Manual) PT INR APTT Heparin Anti-Xa Level ABG pH POC ABG pO2 ABG pO2 ABG HCO3 ABG O2 Saturation ABG Base Excess POC ABG pCO2 ABG Hemoglobin ABG Oxyhemoglobin ABG Sodium ABG Chloride ABG Glucose Oxyhemoglobin Sodium Potassium Chloride Carbon Dioxide BUN Creatinine 0.7 L Glucose 110 H POC Glucose 129 H 117 H Lactic Acid Calcium Phosphorus Magnesium AST ALT Lactate Dehydrogenase Total Bilirubin Direct Bilirubin CK-MB (CK-2) C-Reactive Protein NT-Pro-B Natriuret Pep Total Protein Albumin Arterial Blood Glucose Urine WBC (Auto) Urine Creatinine 01/10/20 01/11/20 01/11/20 23:52 03:19 12:09 WBC RBC Hgb Hct MCHC RDW MCV MCH Lymph % (Auto) [place] % (Auto) [place] # Eos # Lymph # (Auto) [place] # (Auto) Eos # (Auto) Seg Neutrophils % Seg Neuts % (Manual) Baso # (Auto) Lymphocytes % (Manual) Monocytes % (Manual) Eosinophils % (Manual) Basophils % (Manual) Seg Neutrophils # Seg Neutrophils # Man Lymphocytes # (Manual) Monocytes # (Manual) Eosinophils # (Manual) Nucleated RBC % Basophils # (Manual) PT INR APTT Heparin Anti-Xa Level ABG pH POC ABG pO2 ABG pO2 ABG HCO3 ABG O2 Saturation ABG Base Excess POC ABG pCO2 ABG Hemoglobin ABG Oxyhemoglobin ABG Sodium ABG Chloride ABG Glucose Oxyhemoglobin Sodium Potassium Chloride Carbon Dioxide BUN Creatinine Glucose POC Glucose 117 H 136 H 115 H Lactic Acid Calcium Phosphorus Magnesium AST ALT Lactate Dehydrogenase Total Bilirubin Direct Bilirubin CK-MB (CK-2) C-Reactive Protein NT-Pro-B Natriuret Pep Total Protein Albumin Arterial Blood Glucose Urine WBC (Auto) Urine Creatinine 01/11/20 01/11/20 01/12/20 18:27 23:28 00:23 WBC RBC Hgb 9.8 L Hct 31.6 L MCHC 31 L RDW 17.8 H MCV 83 L MCH 26 L Lymph % (Auto) [place] % (Auto) 8.0 H [place] # Eos # Lymph # (Auto) [place] # (Auto) Eos # (Auto) Seg Neutrophils % Seg Neuts % (Manual) Baso # (Auto) Lymphocytes % (Manual) Monocytes % (Manual) Eosinophils % (Manual) Basophils % (Manual) Seg Neutrophils # Seg Neutrophils # Man Lymphocytes # (Manual) Monocytes # (Manual) Eosinophils # (Manual) Nucleated RBC % Basophils # (Manual) PT INR APTT Heparin Anti-Xa Level ABG pH POC ABG pO2 ABG pO2 ABG HCO3 ABG O2 Saturation ABG Base Excess POC ABG pCO2 ABG Hemoglobin ABG Oxyhemoglobin ABG Sodium ABG Chloride ABG Glucose Oxyhemoglobin Sodium Potassium Chloride Carbon Dioxide BUN Creatinine Glucose POC Glucose 118 H 122 H Lactic Acid Calcium Phosphorus Magnesium AST ALT Lactate Dehydrogenase Total Bilirubin Direct Bilirubin CK-MB (CK-2) C-Reactive Protein NT-Pro-B Natriuret Pep Total Protein Albumin Arterial Blood Glucose Urine WBC (Auto) Urine Creatinine 01/12/20 01/12/20 01/12/20 00:23 04:18 04:18 WBC RBC Hgb 9.6 L Hct 30.9 L MCHC 31 L RDW 17.3 H MCV 81 L MCH 25 L Lymph % (Auto) [place] % (Auto) [place] # Eos # Lymph # (Auto) [place] # (Auto) Eos # (Auto) Seg Neutrophils % Seg Neuts % (Manual) Baso # (Auto) Lymphocytes % (Manual) Monocytes % (Manual) Eosinophils % (Manual) Basophils % (Manual) Seg Neutrophils # Seg Neutrophils # Man Lymphocytes # (Manual) Monocytes # (Manual) Eosinophils # (Manual) Nucleated RBC % Basophils # (Manual) PT INR APTT Heparin Anti-Xa Level ABG pH POC ABG pO2 ABG pO2 ABG HCO3 ABG O2 Saturation ABG Base Excess POC ABG pCO2 ABG Hemoglobin ABG Oxyhemoglobin ABG Sodium ABG Chloride ABG Glucose Oxyhemoglobin Sodium Potassium Chloride Carbon Dioxide BUN Creatinine 0.7 L 0.7 L Glucose 111 H 108 H POC Glucose Lactic Acid Calcium Phosphorus Magnesium AST ALT Lactate Dehydrogenase Total Bilirubin Direct Bilirubin CK-MB (CK-2) C-Reactive Protein NT-Pro-B Natriuret Pep Total Protein Albumin 2.6 L Arterial Blood Glucose Urine WBC (Auto) Urine Creatinine 01/12/20 01/12/20 01/12/20 06:03 12:27 13:58 WBC RBC Hgb Hct MCHC RDW MCV MCH Lymph % (Auto) [place] % (Auto) [place] # Eos # Lymph # (Auto) [place] # (Auto) Eos # (Auto) Seg Neutrophils % Seg Neuts % (Manual) Baso # (Auto) Lymphocytes % (Manual) Monocytes % (Manual) Eosinophils % (Manual) Basophils % (Manual) Seg Neutrophils # Seg Neutrophils # Man Lymphocytes # (Manual) Monocytes # (Manual) Eosinophils # (Manual) Nucleated RBC % Basophils # (Manual) PT INR APTT Heparin Anti-Xa Level ABG pH 7.453 H POC ABG pO2 76.6 L ABG pO2 ABG HCO3 ABG O2 Saturation ABG Base Excess POC ABG pCO2 ABG Hemoglobin 10.3 L ABG Oxyhemoglobin ABG Sodium ABG Chloride ABG Glucose 99 H Oxyhemoglobin Sodium Potassium Chloride Carbon Dioxide BUN Creatinine Glucose POC Glucose 128 H 121 H Lactic Acid Calcium Phosphorus Magnesium AST ALT Lactate Dehydrogenase Total Bilirubin Direct Bilirubin CK-MB (CK-2) C-Reactive Protein NT-Pro-B Natriuret Pep Total Protein Albumin Arterial Blood Glucose 99 H Urine WBC (Auto) Urine Creatinine 01/12/20 01/13/20 01/13/20 18:24 12:01 17:46 WBC RBC Hgb Hct MCHC RDW MCV MCH Lymph % (Auto) [place] % (Auto) [place] # Eos # Lymph # (Auto) [place] # (Auto) Eos # (Auto) Seg Neutrophils % Seg Neuts % (Manual) Baso # (Auto) Lymphocytes % (Manual) Monocytes % (Manual) Eosinophils % (Manual) Basophils % (Manual) Seg Neutrophils # Seg Neutrophils # Man Lymphocytes # (Manual) Monocytes # (Manual) Eosinophils # (Manual) Nucleated RBC % Basophils # (Manual) PT INR APTT Heparin Anti-Xa Level ABG pH POC ABG pO2 ABG pO2 ABG HCO3 ABG O2 Saturation ABG Base Excess POC ABG pCO2 ABG Hemoglobin ABG Oxyhemoglobin ABG Sodium ABG Chloride ABG Glucose Oxyhemoglobin Sodium Potassium Chloride Carbon Dioxide BUN Creatinine Glucose POC Glucose 119 H 107 H 124 H Lactic Acid Calcium Phosphorus Magnesium AST ALT Lactate Dehydrogenase Total Bilirubin Direct Bilirubin CK-MB (CK-2) C-Reactive Protein NT-Pro-B Natriuret Pep Total Protein Albumin Arterial Blood Glucose Urine WBC (Auto) Urine Creatinine 01/13/20 01/14/20 01/14/20 20:40 00:10 05:33 WBC RBC Hgb Hct MCHC RDW MCV MCH Lymph % (Auto) [place] % (Auto) [place] # Eos # Lymph # (Auto) [place] # (Auto) Eos # (Auto) Seg Neutrophils % Seg Neuts % (Manual) Baso # (Auto) Lymphocytes % (Manual) Monocytes % (Manual) Eosinophils % (Manual) Basophils % (Manual) Seg Neutrophils # Seg Neutrophils # Man Lymphocytes # (Manual) Monocytes # (Manual) Eosinophils # (Manual) Nucleated RBC % Basophils # (Manual) PT INR APTT Heparin Anti-Xa Level ABG pH POC ABG pO2 ABG pO2 65.3 L ABG HCO3 31.8 H ABG O2 Saturation 93.5 L ABG Base Excess 6.7 H POC ABG pCO2 ABG Hemoglobin 13.3 L ABG Oxyhemoglobin ABG Sodium ABG Chloride ABG Glucose Oxyhemoglobin 90.9 L Sodium Potassium Chloride Carbon Dioxide BUN Creatinine Glucose POC Glucose 111 H 111 H Lactic Acid Calcium Phosphorus Magnesium AST ALT Lactate Dehydrogenase Total Bilirubin Direct Bilirubin CK-MB (CK-2) C-Reactive Protein NT-Pro-B Natriuret Pep Total Protein Albumin Arterial Blood Glucose Urine WBC (Auto) Urine Creatinine 01/14/20 01/14/20 01/14/20 12:10 16:14 16:14 WBC RBC Hgb 10.6 L Hct 34.2 L MCHC 31 L RDW 18.3 H MCV 83 L MCH 26 L Lymph % (Auto) [place] % (Auto) 7.4 H [place] # Eos # Lymph # (Auto) [place] # (Auto) Eos # (Auto) Seg Neutrophils % 71.9 H Seg Neuts % (Manual) Baso # (Auto) Lymphocytes % (Manual) Monocytes % (Manual) Eosinophils % (Manual) Basophils % (Manual) Seg Neutrophils # Seg Neutrophils # Man Lymphocytes # (Manual) Monocytes # (Manual) Eosinophils # (Manual) Nucleated RBC % Basophils # (Manual) PT INR APTT Heparin Anti-Xa Level ABG pH POC ABG pO2 ABG pO2 ABG HCO3 ABG O2 Saturation ABG Base Excess POC ABG pCO2 ABG Hemoglobin ABG Oxyhemoglobin ABG Sodium ABG Chloride ABG Glucose Oxyhemoglobin Sodium Potassium Chloride Carbon Dioxide 31 H BUN Creatinine 0.6 L Glucose 131 H POC Glucose 139 H Lactic Acid Calcium Phosphorus Magnesium AST ALT Lactate Dehydrogenase Total Bilirubin Direct Bilirubin CK-MB (CK-2) C-Reactive Protein NT-Pro-B Natriuret Pep Total Protein Albumin Arterial Blood Glucose Urine WBC (Auto) Urine Creatinine 01/14/20 01/15/20 01/15/20 18:05 00:52 05:35 WBC RBC Hgb Hct MCHC RDW MCV MCH Lymph % (Auto) [place] % (Auto) [place] # Eos # Lymph # (Auto) [place] # (Auto) Eos # (Auto) Seg Neutrophils % Seg Neuts % (Manual) Baso # (Auto) Lymphocytes % (Manual) Monocytes % (Manual) Eosinophils % (Manual) Basophils % (Manual) Seg Neutrophils # Seg Neutrophils # Man Lymphocytes # (Manual) Monocytes # (Manual) Eosinophils # (Manual) Nucleated RBC % Basophils # (Manual) PT INR APTT Heparin Anti-Xa Level ABG pH POC ABG pO2 ABG pO2 ABG HCO3 ABG O2 Saturation ABG Base Excess POC ABG pCO2 ABG Hemoglobin ABG Oxyhemoglobin ABG Sodium ABG Chloride ABG Glucose Oxyhemoglobin Sodium Potassium Chloride Carbon Dioxide BUN Creatinine Glucose POC Glucose 147 H 140 H 159 H Lactic Acid Calcium Phosphorus Magnesium AST ALT Lactate Dehydrogenase Total Bilirubin Direct Bilirubin CK-MB (CK-2) C-Reactive Protein NT-Pro-B Natriuret Pep Total Protein Albumin Arterial Blood Glucose Urine WBC (Auto) Urine Creatinine 01/15/20 01/15/20 01/16/20 12:52 17:43 00:32 WBC RBC Hgb Hct MCHC RDW MCV MCH Lymph % (Auto) [place] % (Auto) [place] # Eos # Lymph # (Auto) [place] # (Auto) Eos # (Auto) Seg Neutrophils % Seg Neuts % (Manual) Baso # (Auto) Lymphocytes % (Manual) Monocytes % (Manual) Eosinophils % (Manual) Basophils % (Manual) Seg Neutrophils # Seg Neutrophils # Man Lymphocytes # (Manual) Monocytes # (Manual) Eosinophils # (Manual) Nucleated RBC % Basophils # (Manual) PT INR APTT Heparin Anti-Xa Level ABG pH POC ABG pO2 ABG pO2 ABG HCO3 ABG O2 Saturation ABG Base Excess POC ABG pCO2 ABG Hemoglobin ABG Oxyhemoglobin ABG Sodium ABG Chloride ABG Glucose Oxyhemoglobin Sodium Potassium Chloride Carbon Dioxide BUN Creatinine Glucose POC Glucose 164 H 167 H 153 H Lactic Acid Calcium Phosphorus Magnesium AST ALT Lactate Dehydrogenase Total Bilirubin Direct Bilirubin CK-MB (CK-2) C-Reactive Protein NT-Pro-B Natriuret Pep Total Protein Albumin Arterial Blood Glucose Urine WBC (Auto) Urine Creatinine 01/16/20 01/16/20 01/17/20 05:46 11:48 06:38 WBC RBC Hgb Hct MCHC RDW MCV MCH Lymph % (Auto) [place] % (Auto) [place] # Eos # Lymph # (Auto) [place] # (Auto) Eos # (Auto) Seg Neutrophils % Seg Neuts % (Manual) Baso # (Auto) Lymphocytes % (Manual) Monocytes % (Manual) Eosinophils % (Manual) Basophils % (Manual) Seg Neutrophils # Seg Neutrophils # Man Lymphocytes # (Manual) Monocytes # (Manual) Eosinophils # (Manual) Nucleated RBC % Basophils # (Manual) PT INR APTT Heparin Anti-Xa Level ABG pH POC ABG pO2 ABG pO2 ABG HCO3 ABG O2 Saturation ABG Base Excess POC ABG pCO2 ABG Hemoglobin ABG Oxyhemoglobin ABG Sodium ABG Chloride ABG Glucose Oxyhemoglobin Sodium Potassium Chloride Carbon Dioxide BUN Creatinine Glucose POC Glucose 163 H 155 H 116 H Lactic Acid Calcium Phosphorus Magnesium AST ALT Lactate Dehydrogenase Total Bilirubin Direct Bilirubin CK-MB (CK-2) C-Reactive Protein NT-Pro-B Natriuret Pep Total Protein Albumin Arterial Blood Glucose Urine WBC (Auto) Urine Creatinine 01/17/20 01/17/20 01/18/20 11:36 17:43 00:12 WBC RBC Hgb Hct MCHC RDW MCV MCH Lymph % (Auto) [place] % (Auto) [place] # Eos # Lymph # (Auto) [place] # (Auto) Eos # (Auto) Seg Neutrophils % Seg Neuts % (Manual) Baso # (Auto) Lymphocytes % (Manual) Monocytes % (Manual) Eosinophils % (Manual) Basophils % (Manual) Seg Neutrophils # Seg Neutrophils # Man Lymphocytes # (Manual) Monocytes # (Manual) Eosinophils # (Manual) Nucleated RBC % Basophils # (Manual) PT INR APTT Heparin Anti-Xa Level ABG pH POC ABG pO2 ABG pO2 ABG HCO3 ABG O2 Saturation ABG Base Excess POC ABG pCO2 ABG Hemoglobin ABG Oxyhemoglobin ABG Sodium ABG Chloride ABG Glucose Oxyhemoglobin Sodium Potassium Chloride Carbon Dioxide BUN Creatinine Glucose POC Glucose 110 H 134 H 108 H Lactic Acid Calcium Phosphorus Magnesium AST ALT Lactate Dehydrogenase Total Bilirubin Direct Bilirubin CK-MB (CK-2) C-Reactive Protein NT-Pro-B Natriuret Pep Total Protein Albumin Arterial Blood Glucose Urine WBC (Auto) Urine Creatinine 01/18/20 01/18/20 01/18/20 05:37 06:46 06:46 WBC RBC Hgb 10.1 L Hct 32.2 L MCHC 31 L RDW 18.1 H MCV 81 L MCH 25 L Lymph % (Auto) [place] % (Auto) [place] # Eos # Lymph # (Auto) [place] # (Auto) Eos # (Auto) Seg Neutrophils % 71.9 H Seg Neuts % (Manual) Baso # (Auto) Lymphocytes % (Manual) Monocytes % (Manual) Eosinophils % (Manual) Basophils % (Manual) Seg Neutrophils # Seg Neutrophils # Man Lymphocytes # (Manual) Monocytes # (Manual) Eosinophils # (Manual) Nucleated RBC % Basophils # (Manual) PT INR APTT Heparin Anti-Xa Level ABG pH POC ABG pO2 ABG pO2 ABG HCO3 ABG O2 Saturation ABG Base Excess POC ABG pCO2 ABG Hemoglobin ABG Oxyhemoglobin ABG Sodium ABG Chloride ABG Glucose Oxyhemoglobin Sodium Potassium Chloride Carbon Dioxide BUN Creatinine 0.7 L Glucose 155 H POC Glucose 168 H Lactic Acid Calcium Phosphorus Magnesium AST ALT Lactate Dehydrogenase Total Bilirubin Direct Bilirubin CK-MB (CK-2) C-Reactive Protein NT-Pro-B Natriuret Pep Total Protein Albumin Arterial Blood Glucose Urine WBC (Auto) Urine Creatinine 01/18/20 01/18/20 01/18/20 12:05 17:14 23:28 WBC RBC Hgb Hct MCHC RDW MCV MCH Lymph % (Auto) [place] % (Auto) [place] # Eos # Lymph # (Auto) [place] # (Auto) Eos # (Auto) Seg Neutrophils % Seg Neuts % (Manual) Baso # (Auto) Lymphocytes % (Manual) Monocytes % (Manual) Eosinophils % (Manual) Basophils % (Manual) Seg Neutrophils # Seg Neutrophils # Man Lymphocytes # (Manual) Monocytes # (Manual) Eosinophils # (Manual) Nucleated RBC % Basophils # (Manual) PT INR APTT Heparin Anti-Xa Level ABG pH POC ABG pO2 ABG pO2 ABG HCO3 ABG O2 Saturation ABG Base Excess POC ABG pCO2 ABG Hemoglobin ABG Oxyhemoglobin ABG Sodium ABG Chloride ABG Glucose Oxyhemoglobin Sodium Potassium Chloride Carbon Dioxide BUN Creatinine Glucose POC Glucose 128 H 126 H 128 H Lactic Acid Calcium Phosphorus Magnesium AST ALT Lactate Dehydrogenase Total Bilirubin Direct Bilirubin CK-MB (CK-2) C-Reactive Protein NT-Pro-B Natriuret Pep Total Protein Albumin Arterial Blood Glucose Urine WBC (Auto) Urine Creatinine 01/19/20 01/19/20 01/19/20 05:39 12:33 17:36 WBC RBC Hgb Hct MCHC RDW MCV MCH Lymph % (Auto) [place] % (Auto) [place] # Eos # Lymph # (Auto) [place] # (Auto) Eos # (Auto) Seg Neutrophils % Seg Neuts % (Manual) Baso # (Auto) Lymphocytes % (Manual) Monocytes % (Manual) Eosinophils % (Manual) Basophils % (Manual) Seg Neutrophils # Seg Neutrophils # Man Lymphocytes # (Manual) Monocytes # (Manual) Eosinophils # (Manual) Nucleated RBC % Basophils # (Manual) PT INR APTT Heparin Anti-Xa Level ABG pH POC ABG pO2 ABG pO2 ABG HCO3 ABG O2 Saturation ABG Base Excess POC ABG pCO2 ABG Hemoglobin ABG Oxyhemoglobin ABG Sodium ABG Chloride ABG Glucose Oxyhemoglobin Sodium Potassium Chloride Carbon Dioxide BUN Creatinine Glucose POC Glucose 164 H 171 H 152 H Lactic Acid Calcium Phosphorus Magnesium AST ALT Lactate Dehydrogenase Total Bilirubin Direct Bilirubin CK-MB (CK-2) C-Reactive Protein NT-Pro-B Natriuret Pep Total Protein Albumin Arterial Blood Glucose Urine WBC (Auto) Urine Creatinine 01/20/20 01/20/20 01/20/20 00:12 05:20 05:35 WBC RBC Hgb 9.2 L Hct 29.4 L MCHC 31 L RDW 17.9 H MCV 81 L MCH 25 L Lymph % (Auto) [place] % (Auto) [place] # Eos # Lymph # (Auto) [place] # (Auto) Eos # (Auto) Seg Neutrophils % Seg Neuts % (Manual) Baso # (Auto) Lymphocytes % (Manual) Monocytes % (Manual) Eosinophils % (Manual) Basophils % (Manual) Seg Neutrophils # Seg Neutrophils # Man Lymphocytes # (Manual) Monocytes # (Manual) Eosinophils # (Manual) Nucleated RBC % Basophils # (Manual) PT INR APTT Heparin Anti-Xa Level ABG pH POC ABG pO2 ABG pO2 ABG HCO3 ABG O2 Saturation ABG Base Excess POC ABG pCO2 ABG Hemoglobin ABG Oxyhemoglobin ABG Sodium ABG Chloride ABG Glucose Oxyhemoglobin Sodium Potassium Chloride Carbon Dioxide BUN Creatinine Glucose POC Glucose 120 H 136 H Lactic Acid Calcium Phosphorus Magnesium AST ALT Lactate Dehydrogenase Total Bilirubin Direct Bilirubin CK-MB (CK-2) C-Reactive Protein NT-Pro-B Natriuret Pep Total Protein Albumin Arterial Blood Glucose Urine WBC (Auto) Urine Creatinine 01/20/20 01/20/20 01/20/20 05:40 11:58 14:55 WBC RBC Hgb 9.0 L Hct 28.3 L MCHC RDW MCV MCH Lymph % (Auto) [place] % (Auto) [place] # Eos # Lymph # (Auto) [place] # (Auto) Eos # (Auto) Seg Neutrophils % Seg Neuts % (Manual) Baso # (Auto) Lymphocytes % (Manual) Monocytes % (Manual) Eosinophils % (Manual) Basophils % (Manual) Seg Neutrophils # Seg Neutrophils # Man Lymphocytes # (Manual) Monocytes # (Manual) Eosinophils # (Manual) Nucleated RBC % Basophils # (Manual) PT INR APTT Heparin Anti-Xa Level ABG pH POC ABG pO2 ABG pO2 ABG HCO3 ABG O2 Saturation ABG Base Excess POC ABG pCO2 ABG Hemoglobin ABG Oxyhemoglobin ABG Sodium ABG Chloride ABG Glucose Oxyhemoglobin Sodium Potassium Chloride Carbon Dioxide 32 H BUN 22 H Creatinine 0.7 L Glucose 128 H POC Glucose 152 H Lactic Acid Calcium Phosphorus Magnesium AST ALT Lactate Dehydrogenase Total Bilirubin Direct Bilirubin CK-MB (CK-2) C-Reactive Protein NT-Pro-B Natriuret Pep Total Protein Albumin Arterial Blood Glucose Urine WBC (Auto) Urine Creatinine 01/20/20 01/20/20 01/20/20 14:55 18:14 21:35 WBC RBC Hgb Hct MCHC RDW MCV MCH Lymph % (Auto) [place] % (Auto) [place] # Eos # Lymph # (Auto) [place] # (Auto) Eos # (Auto) Seg Neutrophils % Seg Neuts % (Manual) Baso # (Auto) Lymphocytes % (Manual) Monocytes % (Manual) Eosinophils % (Manual) Basophils % (Manual) Seg Neutrophils # Seg Neutrophils # Man Lymphocytes # (Manual) Monocytes # (Manual) Eosinophils # (Manual) Nucleated RBC % Basophils # (Manual) PT 20.4 H INR 1.72 H APTT 40.6 H Heparin Anti-Xa Level > 2.00 H ABG pH POC ABG pO2 ABG pO2 ABG HCO3 ABG O2 Saturation ABG Base Excess POC ABG pCO2 ABG Hemoglobin ABG Oxyhemoglobin ABG Sodium ABG Chloride ABG Glucose Oxyhemoglobin Sodium Potassium Chloride Carbon Dioxide BUN Creatinine Glucose POC Glucose 150 H Lactic Acid Calcium Phosphorus Magnesium AST ALT Lactate Dehydrogenase Total Bilirubin Direct Bilirubin CK-MB (CK-2) C-Reactive Protein NT-Pro-B Natriuret Pep Total Protein Albumin Arterial Blood Glucose Urine WBC (Auto) Urine Creatinine 01/21/20 01/21/20 01/21/20 00:30 05:47 05:59 WBC RBC Hgb Hct MCHC RDW MCV MCH Lymph % (Auto) [place] % (Auto) [place] # Eos # Lymph # (Auto) [place] # (Auto) Eos # (Auto) Seg Neutrophils % Seg Neuts % (Manual) Baso # (Auto) Lymphocytes % (Manual) Monocytes % (Manual) Eosinophils % (Manual) Basophils % (Manual) Seg Neutrophils # Seg Neutrophils # Man Lymphocytes # (Manual) Monocytes # (Manual) Eosinophils # (Manual) Nucleated RBC % Basophils # (Manual) PT INR APTT Heparin Anti-Xa Level 1.93 H ABG pH POC ABG pO2 ABG pO2 ABG HCO3 ABG O2 Saturation ABG Base Excess POC ABG pCO2 ABG Hemoglobin ABG Oxyhemoglobin ABG Sodium ABG Chloride ABG Glucose Oxyhemoglobin Sodium Potassium Chloride Carbon Dioxide BUN Creatinine Glucose POC Glucose 126 H 148 H Lactic Acid Calcium Phosphorus Magnesium AST ALT Lactate Dehydrogenase Total Bilirubin Direct Bilirubin CK-MB (CK-2) C-Reactive Protein NT-Pro-B Natriuret Pep Total Protein Albumin Arterial Blood Glucose Urine WBC (Auto) Urine Creatinine 01/21/20 01/21/20 01/21/20 12:32 18:20 23:54 WBC RBC Hgb Hct MCHC RDW MCV MCH Lymph % (Auto) [place] % (Auto) [place] # Eos # Lymph # (Auto) [place] # (Auto) Eos # (Auto) Seg Neutrophils % Seg Neuts % (Manual) Baso # (Auto) Lymphocytes % (Manual) Monocytes % (Manual) Eosinophils % (Manual) Basophils % (Manual) Seg Neutrophils # Seg Neutrophils # Man Lymphocytes # (Manual) Monocytes # (Manual) Eosinophils # (Manual) Nucleated RBC % Basophils # (Manual) PT INR APTT Heparin Anti-Xa Level 1.28 H ABG pH POC ABG pO2 ABG pO2 ABG HCO3 ABG O2 Saturation ABG Base Excess POC ABG pCO2 ABG Hemoglobin ABG Oxyhemoglobin ABG Sodium ABG Chloride ABG Glucose Oxyhemoglobin Sodium Potassium Chloride Carbon Dioxide BUN Creatinine Glucose POC Glucose 112 H 146 H Lactic Acid Calcium Phosphorus Magnesium AST ALT Lactate Dehydrogenase Total Bilirubin Direct Bilirubin CK-MB (CK-2) C-Reactive Protein NT-Pro-B Natriuret Pep Total Protein Albumin Arterial Blood Glucose Urine WBC (Auto) Urine Creatinine 01/22/20 01/22/20 01/22/20 04:45 04:45 05:48 WBC RBC Hgb 9.3 L Hct 29.0 L MCHC RDW MCV MCH Lymph % (Auto) [place] % (Auto) [place] # Eos # Lymph # (Auto) [place] # (Auto) Eos # (Auto) Seg Neutrophils % Seg Neuts % (Manual) Baso # (Auto) Lymphocytes % (Manual) Monocytes % (Manual) Eosinophils % (Manual) Basophils % (Manual) Seg Neutrophils # Seg Neutrophils # Man Lymphocytes # (Manual) Monocytes # (Manual) Eosinophils # (Manual) Nucleated RBC % Basophils # (Manual) PT INR APTT Heparin Anti-Xa Level 1.34 H ABG pH POC ABG pO2 ABG pO2 ABG HCO3 ABG O2 Saturation ABG Base Excess POC ABG pCO2 ABG Hemoglobin ABG Oxyhemoglobin ABG Sodium ABG Chloride ABG Glucose Oxyhemoglobin Sodium Potassium Chloride Carbon Dioxide BUN Creatinine Glucose POC Glucose 142 H Lactic Acid Calcium Phosphorus Magnesium AST ALT Lactate Dehydrogenase Total Bilirubin Direct Bilirubin CK-MB (CK-2) C-Reactive Protein NT-Pro-B Natriuret Pep Total Protein Albumin Arterial Blood Glucose Urine WBC (Auto) Urine Creatinine 01/22/20 01/22/20 01/22/20 08:09 08:22 09:58 WBC RBC Hgb Hct MCHC RDW MCV MCH Lymph % (Auto) [place] % (Auto) [place] # Eos # Lymph # (Auto) [place] # (Auto) Eos # (Auto) Seg Neutrophils % Seg Neuts % (Manual) Baso # (Auto) Lymphocytes % (Manual) Monocytes % (Manual) Eosinophils % (Manual) Basophils % (Manual) Seg Neutrophils # Seg Neutrophils # Man Lymphocytes # (Manual) Monocytes # (Manual) Eosinophils # (Manual) Nucleated RBC % Basophils # (Manual) PT 16.9 H INR 1.34 H APTT Heparin Anti-Xa Level ABG pH POC ABG pO2 ABG pO2 ABG HCO3 ABG O2 Saturation ABG Base Excess POC ABG pCO2 ABG Hemoglobin ABG Oxyhemoglobin ABG Sodium ABG Chloride ABG Glucose Oxyhemoglobin Sodium Potassium Chloride 97.8 L Carbon Dioxide BUN 29 H Creatinine Glucose 128 H POC Glucose 131 H Lactic Acid Calcium Phosphorus Magnesium AST ALT Lactate Dehydrogenase Total Bilirubin Direct Bilirubin CK-MB (CK-2) C-Reactive Protein NT-Pro-B Natriuret Pep Total Protein Albumin Arterial Blood Glucose Urine WBC (Auto) Urine Creatinine 01/22/20 01/22/20 01/22/20 12:44 16:13 18:18 WBC RBC Hgb Hct MCHC RDW MCV MCH Lymph % (Auto) [place] % (Auto) [place] # Eos # Lymph # (Auto) [place] # (Auto) Eos # (Auto) Seg Neutrophils % Seg Neuts % (Manual) Baso # (Auto) Lymphocytes % (Manual) Monocytes % (Manual) Eosinophils % (Manual) Basophils % (Manual) Seg Neutrophils # Seg Neutrophils # Man Lymphocytes # (Manual) Monocytes # (Manual) Eosinophils # (Manual) Nucleated RBC % Basophils # (Manual) PT INR APTT Heparin Anti-Xa Level ABG pH POC ABG pO2 ABG pO2 ABG HCO3 ABG O2 Saturation ABG Base Excess POC ABG pCO2 ABG Hemoglobin ABG Oxyhemoglobin ABG Sodium ABG Chloride ABG Glucose Oxyhemoglobin Sodium Potassium Chloride Carbon Dioxide BUN Creatinine Glucose POC Glucose 156 H 133 H 155 H Lactic Acid Calcium Phosphorus Magnesium AST ALT Lactate Dehydrogenase Total Bilirubin Direct Bilirubin CK-MB (CK-2) C-Reactive Protein NT-Pro-B Natriuret Pep Total Protein Albumin Arterial Blood Glucose Urine WBC (Auto) Urine Creatinine 01/22/20 01/23/20 01/23/20 23:22 05:37 12:59 WBC RBC Hgb Hct MCHC RDW MCV MCH Lymph % (Auto) [place] % (Auto) [place] # Eos # Lymph # (Auto) [place] # (Auto) Eos # (Auto) Seg Neutrophils % Seg Neuts % (Manual) Baso # (Auto) Lymphocytes % (Manual) Monocytes % (Manual) Eosinophils % (Manual) Basophils % (Manual) Seg Neutrophils # Seg Neutrophils # Man Lymphocytes # (Manual) Monocytes # (Manual) Eosinophils # (Manual) Nucleated RBC % Basophils # (Manual) PT INR APTT Heparin Anti-Xa Level ABG pH POC ABG pO2 ABG pO2 ABG HCO3 ABG O2 Saturation ABG Base Excess POC ABG pCO2 ABG Hemoglobin ABG Oxyhemoglobin ABG Sodium ABG Chloride ABG Glucose Oxyhemoglobin Sodium Potassium Chloride Carbon Dioxide BUN Creatinine Glucose POC Glucose 148 H 163 H 175 H Lactic Acid Calcium Phosphorus Magnesium AST ALT Lactate Dehydrogenase Total Bilirubin Direct Bilirubin CK-MB (CK-2) C-Reactive Protein NT-Pro-B Natriuret Pep Total Protein Albumin Arterial Blood Glucose Urine WBC (Auto) Urine Creatinine 01/23/20 01/23/20 01/24/20 17:28 23:56 04:30 WBC RBC 3.46 L Hgb 8.8 L Hct 27.8 L MCHC RDW 18.2 H MCV 81 L MCH 25 L Lymph % (Auto) [place] % (Auto) 7.8 H [place] # Eos # Lymph # (Auto) [place] # (Auto) Eos # (Auto) Seg Neutrophils % Seg Neuts % (Manual) Baso # (Auto) Lymphocytes % (Manual) Monocytes % (Manual) Eosinophils % (Manual) Basophils % (Manual) Seg Neutrophils # Seg Neutrophils # Man Lymphocytes # (Manual) Monocytes # (Manual) Eosinophils # (Manual) Nucleated RBC % Basophils # (Manual) PT INR APTT Heparin Anti-Xa Level ABG pH POC ABG pO2 ABG pO2 ABG HCO3 ABG O2 Saturation ABG Base Excess POC ABG pCO2 ABG Hemoglobin ABG Oxyhemoglobin ABG Sodium ABG Chloride ABG Glucose Oxyhemoglobin Sodium Potassium Chloride Carbon Dioxide BUN Creatinine Glucose POC Glucose 165 H 177 H Lactic Acid Calcium Phosphorus Magnesium AST ALT Lactate Dehydrogenase Total Bilirubin Direct Bilirubin CK-MB (CK-2) C-Reactive Protein NT-Pro-B Natriuret Pep Total Protein Albumin Arterial Blood Glucose Urine WBC (Auto) Urine Creatinine 01/24/20 01/24/20 01/24/20 04:30 07:18 12:06 WBC RBC Hgb Hct MCHC RDW MCV MCH Lymph % (Auto) [place] % (Auto) [place] # Eos # Lymph # (Auto) [place] # (Auto) Eos # (Auto) Seg Neutrophils % Seg Neuts % (Manual) Baso # (Auto) Lymphocytes % (Manual) Monocytes % (Manual) Eosinophils % (Manual) Basophils % (Manual) Seg Neutrophils # Seg Neutrophils # Man Lymphocytes # (Manual) Monocytes # (Manual) Eosinophils # (Manual) Nucleated RBC % Basophils # (Manual) PT INR APTT Heparin Anti-Xa Level ABG pH POC ABG pO2 ABG pO2 ABG HCO3 ABG O2 Saturation ABG Base Excess POC ABG pCO2 ABG Hemoglobin ABG Oxyhemoglobin ABG Sodium ABG Chloride ABG Glucose Oxyhemoglobin Sodium Potassium Chloride 97.9 L Carbon Dioxide BUN 31 H Creatinine Glucose 146 H POC Glucose 151 H 133 H Lactic Acid Calcium Phosphorus Magnesium AST ALT Lactate Dehydrogenase Total Bilirubin Direct Bilirubin CK-MB (CK-2) C-Reactive Protein NT-Pro-B Natriuret Pep Total Protein Albumin Arterial Blood Glucose Urine WBC (Auto) Urine Creatinine 01/24/20 01/25/20 01/25/20 17:36 00:08 04:25 WBC RBC 3.50 L Hgb 8.7 L Hct 27.9 L MCHC 31 L RDW 18.2 H MCV 80 L MCH 25 L Lymph % (Auto) [place] % (Auto) 8.5 H [place] # Eos # Lymph # (Auto) [place] # (Auto) Eos # (Auto) Seg Neutrophils % Seg Neuts % (Manual) Baso # (Auto) Lymphocytes % (Manual) Monocytes % (Manual) Eosinophils % (Manual) Basophils % (Manual) Seg Neutrophils # Seg Neutrophils # Man Lymphocytes # (Manual) Monocytes # (Manual) Eosinophils # (Manual) Nucleated RBC % Basophils # (Manual) PT INR APTT Heparin Anti-Xa Level ABG pH POC ABG pO2 ABG pO2 ABG HCO3 ABG O2 Saturation ABG Base Excess POC ABG pCO2 ABG Hemoglobin ABG Oxyhemoglobin ABG Sodium ABG Chloride ABG Glucose Oxyhemoglobin Sodium Potassium Chloride Carbon Dioxide BUN Creatinine Glucose POC Glucose 133 H 129 H Lactic Acid Calcium Phosphorus Magnesium AST ALT Lactate Dehydrogenase Total Bilirubin Direct Bilirubin CK-MB (CK-2) C-Reactive Protein NT-Pro-B Natriuret Pep Total Protein Albumin Arterial Blood Glucose Urine WBC (Auto) Urine Creatinine 01/25/20 01/25/20 01/25/20 04:25 05:38 11:52 WBC RBC Hgb Hct MCHC RDW MCV MCH Lymph % (Auto) [place] % (Auto) [place] # Eos # Lymph # (Auto) [place] # (Auto) Eos # (Auto) Seg Neutrophils % Seg Neuts % (Manual) Baso # (Auto) Lymphocytes % (Manual) Monocytes % (Manual) Eosinophils % (Manual) Basophils % (Manual) Seg Neutrophils # Seg Neutrophils # Man Lymphocytes # (Manual) Monocytes # (Manual) Eosinophils # (Manual) Nucleated RBC % Basophils # (Manual) PT INR APTT Heparin Anti-Xa Level ABG pH POC ABG pO2 ABG pO2 ABG HCO3 ABG O2 Saturation ABG Base Excess POC ABG pCO2 ABG Hemoglobin ABG Oxyhemoglobin ABG Sodium ABG Chloride ABG Glucose Oxyhemoglobin Sodium Potassium Chloride Carbon Dioxide BUN 30 H Creatinine Glucose 134 H POC Glucose 129 H 134 H Lactic Acid Calcium Phosphorus Magnesium AST ALT Lactate Dehydrogenase Total Bilirubin Direct Bilirubin CK-MB (CK-2) C-Reactive Protein NT-Pro-B Natriuret Pep Total Protein Albumin Arterial Blood Glucose Urine WBC (Auto) Urine Creatinine 01/25/20 01/25/20 01/26/20 17:13 21:02 00:59 WBC RBC Hgb Hct MCHC RDW MCV MCH Lymph % (Auto) [place] % (Auto) [place] # Eos # Lymph # (Auto) [place] # (Auto) Eos # (Auto) Seg Neutrophils % Seg Neuts % (Manual) Baso # (Auto) Lymphocytes % (Manual) Monocytes % (Manual) Eosinophils % (Manual) Basophils % (Manual) Seg Neutrophils # Seg Neutrophils # Man Lymphocytes # (Manual) Monocytes # (Manual) Eosinophils # (Manual) Nucleated RBC % Basophils # (Manual) PT INR APTT Heparin Anti-Xa Level ABG pH POC ABG pO2 ABG pO2 57.5 L ABG HCO3 31.7 H ABG O2 Saturation 90.3 L ABG Base Excess 6.6 H POC ABG pCO2 ABG Hemoglobin 13.0 L ABG Oxyhemoglobin ABG Sodium ABG Chloride ABG Glucose Oxyhemoglobin 87.5 L Sodium Potassium Chloride Carbon Dioxide BUN Creatinine Glucose POC Glucose 124 H 196 H Lactic Acid Calcium Phosphorus Magnesium AST ALT Lactate Dehydrogenase Total Bilirubin Direct Bilirubin CK-MB (CK-2) C-Reactive Protein NT-Pro-B Natriuret Pep Total Protein Albumin Arterial Blood Glucose Urine WBC (Auto) Urine Creatinine 01/26/20 01/26/20 01/26/20 03:20 05:46 12:46 WBC RBC Hgb 9.2 L Hct 29.4 L MCHC RDW MCV MCH Lymph % (Auto) [place] % (Auto) [place] # Eos # Lymph # (Auto) [place] # (Auto) Eos # (Auto) Seg Neutrophils % Seg Neuts % (Manual) Baso # (Auto) Lymphocytes % (Manual) Monocytes % (Manual) Eosinophils % (Manual) Basophils % (Manual) Seg Neutrophils # Seg Neutrophils # Man Lymphocytes # (Manual) Monocytes # (Manual) Eosinophils # (Manual) Nucleated RBC % Basophils # (Manual) PT INR APTT Heparin Anti-Xa Level ABG pH POC ABG pO2 ABG pO2 ABG HCO3 ABG O2 Saturation ABG Base Excess POC ABG pCO2 ABG Hemoglobin ABG Oxyhemoglobin ABG Sodium ABG Chloride ABG Glucose Oxyhemoglobin Sodium Potassium Chloride Carbon Dioxide BUN Creatinine Glucose POC Glucose 141 H 122 H Lactic Acid Calcium Phosphorus Magnesium AST ALT Lactate Dehydrogenase Total Bilirubin Direct Bilirubin CK-MB (CK-2) C-Reactive Protein NT-Pro-B Natriuret Pep Total Protein Albumin Arterial Blood Glucose Urine WBC (Auto) Urine Creatinine 01/26/20 01/26/20 01/27/20 18:03 23:55 04:47 WBC RBC Hgb Hct MCHC RDW MCV MCH Lymph % (Auto) [place] % (Auto) [place] # Eos # Lymph # (Auto) [place] # (Auto) Eos # (Auto) Seg Neutrophils % Seg Neuts % (Manual) Baso # (Auto) Lymphocytes % (Manual) Monocytes % (Manual) Eosinophils % (Manual) Basophils % (Manual) Seg Neutrophils # Seg Neutrophils # Man Lymphocytes # (Manual) Monocytes # (Manual) Eosinophils # (Manual) Nucleated RBC % Basophils # (Manual) PT INR APTT Heparin Anti-Xa Level ABG pH POC ABG pO2 ABG pO2 ABG HCO3 ABG O2 Saturation ABG Base Excess POC ABG pCO2 ABG Hemoglobin ABG Oxyhemoglobin ABG Sodium ABG Chloride ABG Glucose Oxyhemoglobin Sodium Potassium Chloride Carbon Dioxide BUN 30 H Creatinine 0.7 L Glucose 135 H POC Glucose 142 H 159 H Lactic Acid Calcium Phosphorus Magnesium AST ALT Lactate Dehydrogenase Total Bilirubin Direct Bilirubin CK-MB (CK-2) C-Reactive Protein NT-Pro-B Natriuret Pep Total Protein Albumin Arterial Blood Glucose Urine WBC (Auto) Urine Creatinine 01/27/20 01/27/20 01/27/20 05:43 12:06 17:16 WBC RBC Hgb Hct MCHC RDW MCV MCH Lymph % (Auto) [place] % (Auto) [place] # Eos # Lymph # (Auto) [place] # (Auto) Eos # (Auto) Seg Neutrophils % Seg Neuts % (Manual) Baso # (Auto) Lymphocytes % (Manual) Monocytes % (Manual) Eosinophils % (Manual) Basophils % (Manual) Seg Neutrophils # Seg Neutrophils # Man Lymphocytes # (Manual) Monocytes # (Manual) Eosinophils # (Manual) Nucleated RBC % Basophils # (Manual) PT INR APTT Heparin Anti-Xa Level ABG pH POC ABG pO2 ABG pO2 ABG HCO3 ABG O2 Saturation ABG Base Excess POC ABG pCO2 ABG Hemoglobin ABG Oxyhemoglobin ABG Sodium ABG Chloride ABG Glucose Oxyhemoglobin Sodium Potassium Chloride Carbon Dioxide BUN Creatinine Glucose POC Glucose 143 H 142 H 128 H Lactic Acid Calcium Phosphorus Magnesium AST ALT Lactate Dehydrogenase Total Bilirubin Direct Bilirubin CK-MB (CK-2) C-Reactive Protein NT-Pro-B Natriuret Pep Total Protein Albumin Arterial Blood Glucose Urine WBC (Auto) Urine Creatinine 01/27/20 01/28/20 01/28/20 23:55 04:37 05:55 WBC RBC Hgb 9.4 L Hct 29.9 L MCHC RDW MCV MCH Lymph % (Auto) [place] % (Auto) [place] # Eos # Lymph # (Auto) [place] # (Auto) Eos # (Auto) Seg Neutrophils % Seg Neuts % (Manual) Baso # (Auto) Lymphocytes % (Manual) Monocytes % (Manual) Eosinophils % (Manual) Basophils % (Manual) Seg Neutrophils # Seg Neutrophils # Man Lymphocytes # (Manual) Monocytes # (Manual) Eosinophils # (Manual) Nucleated RBC % Basophils # (Manual) PT INR APTT Heparin Anti-Xa Level ABG pH POC ABG pO2 ABG pO2 ABG HCO3 ABG O2 Saturation ABG Base Excess POC ABG pCO2 ABG Hemoglobin ABG Oxyhemoglobin ABG Sodium ABG Chloride ABG Glucose Oxyhemoglobin Sodium Potassium Chloride Carbon Dioxide BUN Creatinine Glucose POC Glucose 166 H 169 H Lactic Acid Calcium Phosphorus Magnesium AST ALT Lactate Dehydrogenase Total Bilirubin Direct Bilirubin CK-MB (CK-2) C-Reactive Protein NT-Pro-B Natriuret Pep Total Protein Albumin Arterial Blood Glucose Urine WBC (Auto) Urine Creatinine 01/28/20 01/28/20 01/28/20 11:58 17:26 23:46 WBC RBC Hgb Hct MCHC RDW MCV MCH Lymph % (Auto) [place] % (Auto) [place] # Eos # Lymph # (Auto) [place] # (Auto) Eos # (Auto) Seg Neutrophils % Seg Neuts % (Manual) Baso # (Auto) Lymphocytes % (Manual) Monocytes % (Manual) Eosinophils % (Manual) Basophils % (Manual) Seg Neutrophils # Seg Neutrophils # Man Lymphocytes # (Manual) Monocytes # (Manual) Eosinophils # (Manual) Nucleated RBC % Basophils # (Manual) PT INR APTT Heparin Anti-Xa Level ABG pH POC ABG pO2 ABG pO2 ABG HCO3 ABG O2 Saturation ABG Base Excess POC ABG pCO2 ABG Hemoglobin ABG Oxyhemoglobin ABG Sodium ABG Chloride ABG Glucose Oxyhemoglobin Sodium Potassium Chloride Carbon Dioxide BUN Creatinine Glucose POC Glucose 130 H 126 H 150 H Lactic Acid Calcium Phosphorus Magnesium AST ALT Lactate Dehydrogenase Total Bilirubin Direct Bilirubin CK-MB (CK-2) C-Reactive Protein NT-Pro-B Natriuret Pep Total Protein Albumin Arterial Blood Glucose Urine WBC (Auto) Urine Creatinine 01/29/20 01/29/20 01/29/20 04:55 06:00 12:28 WBC RBC Hgb Hct MCHC RDW MCV MCH Lymph % (Auto) [place] % (Auto) [place] # Eos # Lymph # (Auto) [place] # (Auto) Eos # (Auto) Seg Neutrophils % Seg Neuts % (Manual) Baso # (Auto) Lymphocytes % (Manual) Monocytes % (Manual) Eosinophils % (Manual) Basophils % (Manual) Seg Neutrophils # Seg Neutrophils # Man Lymphocytes # (Manual) Monocytes # (Manual) Eosinophils # (Manual) Nucleated RBC % Basophils # (Manual) PT INR APTT Heparin Anti-Xa Level ABG pH POC ABG pO2 ABG pO2 ABG HCO3 ABG O2 Saturation ABG Base Excess POC ABG pCO2 ABG Hemoglobin ABG Oxyhemoglobin ABG Sodium ABG Chloride ABG Glucose Oxyhemoglobin Sodium Potassium Chloride Carbon Dioxide 34 H BUN Creatinine 0.6 L Glucose 152 H POC Glucose 157 H 156 H Lactic Acid Calcium Phosphorus Magnesium AST ALT Lactate Dehydrogenase Total Bilirubin Direct Bilirubin CK-MB (CK-2) C-Reactive Protein NT-Pro-B Natriuret Pep Total Protein Albumin Arterial Blood Glucose Urine WBC (Auto) Urine Creatinine 01/29/20 01/30/20 01/30/20 19:06 00:29 05:39 WBC RBC Hgb Hct MCHC RDW MCV MCH Lymph % (Auto) [place] % (Auto) [place] # Eos # Lymph # (Auto) [place] # (Auto) Eos # (Auto) Seg Neutrophils % Seg Neuts % (Manual) Baso # (Auto) Lymphocytes % (Manual) Monocytes % (Manual) Eosinophils % (Manual) Basophils % (Manual) Seg Neutrophils # Seg Neutrophils # Man Lymphocytes # (Manual) Monocytes # (Manual) Eosinophils # (Manual) Nucleated RBC % Basophils # (Manual) PT INR APTT Heparin Anti-Xa Level ABG pH POC ABG pO2 ABG pO2 ABG HCO3 ABG O2 Saturation ABG Base Excess POC ABG pCO2 ABG Hemoglobin ABG Oxyhemoglobin ABG Sodium ABG Chloride ABG Glucose Oxyhemoglobin Sodium Potassium Chloride Carbon Dioxide BUN Creatinine Glucose POC Glucose 152 H 132 H 159 H Lactic Acid Calcium Phosphorus Magnesium AST ALT Lactate Dehydrogenase Total Bilirubin Direct Bilirubin CK-MB (CK-2) C-Reactive Protein NT-Pro-B Natriuret Pep Total Protein Albumin Arterial Blood Glucose Urine WBC (Auto) Urine Creatinine 01/30/20 01/30/20 01/30/20 12:27 17:42 23:28 WBC RBC Hgb Hct MCHC RDW MCV MCH Lymph % (Auto) [place] % (Auto) [place] # Eos # Lymph # (Auto) [place] # (Auto) Eos # (Auto) Seg Neutrophils % Seg Neuts % (Manual) Baso # (Auto) Lymphocytes % (Manual) Monocytes % (Manual) Eosinophils % (Manual) Basophils % (Manual) Seg Neutrophils # Seg Neutrophils # Man Lymphocytes # (Manual) Monocytes # (Manual) Eosinophils # (Manual) Nucleated RBC % Basophils # (Manual) PT INR APTT Heparin Anti-Xa Level ABG pH POC ABG pO2 ABG pO2 ABG HCO3 ABG O2 Saturation ABG Base Excess POC ABG pCO2 ABG Hemoglobin ABG Oxyhemoglobin ABG Sodium ABG Chloride ABG Glucose Oxyhemoglobin Sodium Potassium Chloride Carbon Dioxide BUN Creatinine Glucose POC Glucose 151 H 144 H 164 H Lactic Acid Calcium Phosphorus Magnesium AST ALT Lactate Dehydrogenase Total Bilirubin Direct Bilirubin CK-MB (CK-2) C-Reactive Protein NT-Pro-B Natriuret Pep Total Protein Albumin Arterial Blood Glucose Urine WBC (Auto) Urine Creatinine 01/31/20 01/31/20 01/31/20 05:51 11:51 18:06 WBC RBC Hgb Hct MCHC RDW MCV MCH Lymph % (Auto) [place] % (Auto) [place] # Eos # Lymph # (Auto) [place] # (Auto) Eos # (Auto) Seg Neutrophils % Seg Neuts % (Manual) Baso # (Auto) Lymphocytes % (Manual) Monocytes % (Manual) Eosinophils % (Manual) Basophils % (Manual) Seg Neutrophils # Seg Neutrophils # Man Lymphocytes # (Manual) Monocytes # (Manual) Eosinophils # (Manual) Nucleated RBC % Basophils # (Manual) PT INR APTT Heparin Anti-Xa Level ABG pH POC ABG pO2 ABG pO2 ABG HCO3 ABG O2 Saturation ABG Base Excess POC ABG pCO2 ABG Hemoglobin ABG Oxyhemoglobin ABG Sodium ABG Chloride ABG Glucose Oxyhemoglobin Sodium Potassium Chloride Carbon Dioxide BUN Creatinine Glucose POC Glucose 131 H 167 H 210 H Lactic Acid Calcium Phosphorus Magnesium AST ALT Lactate Dehydrogenase Total Bilirubin Direct Bilirubin CK-MB (CK-2) C-Reactive Protein NT-Pro-B Natriuret Pep Total Protein Albumin Arterial Blood Glucose Urine WBC (Auto) Urine Creatinine 01/31/20 01/31/20 02/01/20 19:24 Unknown 00:34 WBC RBC Hgb Hct MCHC RDW MCV MCH Lymph % (Auto) [place] % (Auto) [place] # Eos # Lymph # (Auto) [place] # (Auto) Eos # (Auto) Seg Neutrophils % Seg Neuts % (Manual) Baso # (Auto) Lymphocytes % (Manual) Monocytes % (Manual) Eosinophils % (Manual) Basophils % (Manual) Seg Neutrophils # Seg Neutrophils # Man Lymphocytes # (Manual) Monocytes # (Manual) Eosinophils # (Manual) Nucleated RBC % Basophils # (Manual) PT INR APTT Heparin Anti-Xa Level ABG pH POC ABG pO2 ABG pO2 ABG HCO3 ABG O2 Saturation ABG Base Excess POC ABG pCO2 ABG Hemoglobin ABG Oxyhemoglobin ABG Sodium ABG Chloride ABG Glucose Oxyhemoglobin Sodium Potassium Chloride 95.3 L Carbon Dioxide 33 H BUN 36 H Creatinine Glucose 187 H POC Glucose 116 H Lactic Acid Calcium Phosphorus Magnesium AST ALT Lactate Dehydrogenase Total Bilirubin Direct Bilirubin CK-MB (CK-2) C-Reactive Protein NT-Pro-B Natriuret Pep Total Protein Albumin Arterial Blood Glucose Urine WBC (Auto) Urine Creatinine 57.4 H 02/01/20 02/01/20 02/01/20 05:24 10:40 12:29 WBC RBC Hgb Hct MCHC RDW MCV MCH Lymph % (Auto) [place] % (Auto) [place] # Eos # Lymph # (Auto) [place] # (Auto) Eos # (Auto) Seg Neutrophils % Seg Neuts % (Manual) Baso # (Auto) Lymphocytes % (Manual) Monocytes % (Manual) Eosinophils % (Manual) Basophils % (Manual) Seg Neutrophils # Seg Neutrophils # Man Lymphocytes # (Manual) Monocytes # (Manual) Eosinophils # (Manual) Nucleated RBC % Basophils # (Manual) PT INR APTT Heparin Anti-Xa Level ABG pH POC ABG pO2 ABG pO2 ABG HCO3 ABG O2 Saturation ABG Base Excess POC ABG pCO2 ABG Hemoglobin ABG Oxyhemoglobin ABG Sodium ABG Chloride ABG Glucose Oxyhemoglobin Sodium Potassium Chloride Carbon Dioxide BUN Creatinine Glucose POC Glucose 142 H 165 H 151 H Lactic Acid Calcium Phosphorus Magnesium AST ALT Lactate Dehydrogenase Total Bilirubin Direct Bilirubin CK-MB (CK-2) C-Reactive Protein NT-Pro-B Natriuret Pep Total Protein Albumin Arterial Blood Glucose Urine WBC (Auto) Urine Creatinine 02/01/20 02/01/20 02/02/20 17:16 23:23 06:36 WBC RBC Hgb Hct MCHC RDW MCV MCH Lymph % (Auto) [place] % (Auto) [place] # Eos # Lymph # (Auto) [place] # (Auto) Eos # (Auto) Seg Neutrophils % Seg Neuts % (Manual) Baso # (Auto) Lymphocytes % (Manual) Monocytes % (Manual) Eosinophils % (Manual) Basophils % (Manual) Seg Neutrophils # Seg Neutrophils # Man Lymphocytes # (Manual) Monocytes # (Manual) Eosinophils # (Manual) Nucleated RBC % Basophils # (Manual) PT INR APTT Heparin Anti-Xa Level ABG pH POC ABG pO2 ABG pO2 ABG HCO3 ABG O2 Saturation ABG Base Excess POC ABG pCO2 ABG Hemoglobin ABG Oxyhemoglobin ABG Sodium ABG Chloride ABG Glucose Oxyhemoglobin Sodium Potassium Chloride Carbon Dioxide BUN Creatinine Glucose POC Glucose 137 H 145 H 181 H Lactic Acid Calcium Phosphorus Magnesium AST ALT Lactate Dehydrogenase Total Bilirubin Direct Bilirubin CK-MB (CK-2) C-Reactive Protein NT-Pro-B Natriuret Pep Total Protein Albumin Arterial Blood Glucose Urine WBC (Auto) Urine Creatinine 02/02/20 02/02/20 02/02/20 10:01 12:05 17:54 WBC RBC Hgb Hct MCHC RDW MCV MCH Lymph % (Auto) [place] % (Auto) [place] # Eos # Lymph # (Auto) [place] # (Auto) Eos # (Auto) Seg Neutrophils % Seg Neuts % (Manual) Baso # (Auto) Lymphocytes % (Manual) Monocytes % (Manual) Eosinophils % (Manual) Basophils % (Manual) Seg Neutrophils # Seg Neutrophils # Man Lymphocytes # (Manual) Monocytes # (Manual) Eosinophils # (Manual) Nucleated RBC % Basophils # (Manual) PT INR APTT Heparin Anti-Xa Level ABG pH POC ABG pO2 ABG pO2 ABG HCO3 ABG O2 Saturation ABG Base Excess POC ABG pCO2 ABG Hemoglobin ABG Oxyhemoglobin ABG Sodium ABG Chloride ABG Glucose Oxyhemoglobin Sodium Potassium Chloride 95.3 L Carbon Dioxide BUN 44 H Creatinine Glucose 234 H POC Glucose 184 H 127 H Lactic Acid Calcium Phosphorus Magnesium AST 363 H ALT 457 H Lactate Dehydrogenase Total Bilirubin Direct Bilirubin CK-MB (CK-2) C-Reactive Protein NT-Pro-B Natriuret Pep Total Protein Albumin 3.0 L Arterial Blood Glucose Urine WBC (Auto) Urine Creatinine 02/02/20 02/03/20 02/03/20 23:47 05:32 07:04 WBC 13.0 H RBC Hgb 9.5 L Hct 30.8 L MCHC 31 L RDW 19.6 H MCV 81 L MCH 25 L Lymph % (Auto) [place] % (Auto) 9.4 H [place] # Eos # Lymph # (Auto) [place] # (Auto) 1.2 H Eos # (Auto) Seg Neutrophils % 72.3 H Seg Neuts % (Manual) Baso # (Auto) Lymphocytes % (Manual) Monocytes % (Manual) Eosinophils % (Manual) Basophils % (Manual) Seg Neutrophils # 9.4 H Seg Neutrophils # Man Lymphocytes # (Manual) Monocytes # (Manual) Eosinophils # (Manual) Nucleated RBC % Basophils # (Manual) PT INR APTT Heparin Anti-Xa Level ABG pH POC ABG pO2 ABG pO2 ABG HCO3 ABG O2 Saturation ABG Base Excess POC ABG pCO2 ABG Hemoglobin ABG Oxyhemoglobin ABG Sodium ABG Chloride ABG Glucose Oxyhemoglobin Sodium Potassium Chloride Carbon Dioxide BUN Creatinine Glucose POC Glucose 124 H 129 H Lactic Acid Calcium Phosphorus Magnesium AST ALT Lactate Dehydrogenase Total Bilirubin Direct Bilirubin CK-MB (CK-2) C-Reactive Protein NT-Pro-B Natriuret Pep Total Protein Albumin Arterial Blood Glucose Urine WBC (Auto) Urine Creatinine 02/03/20 02/03/20 02/03/20 07:04 11:32 12:49 WBC RBC Hgb Hct MCHC RDW MCV MCH Lymph % (Auto) [place] % (Auto) [place] # Eos # Lymph # (Auto) [place] # (Auto) Eos # (Auto) Seg Neutrophils % Seg Neuts % (Manual) Baso # (Auto) Lymphocytes % (Manual) Monocytes % (Manual) Eosinophils % (Manual) Basophils % (Manual) Seg Neutrophils # Seg Neutrophils # Man Lymphocytes # (Manual) Monocytes # (Manual) Eosinophils # (Manual) Nucleated RBC % Basophils # (Manual) PT INR APTT Heparin Anti-Xa Level ABG pH POC ABG pO2 ABG pO2 ABG HCO3 ABG O2 Saturation ABG Base Excess POC ABG pCO2 ABG Hemoglobin ABG Oxyhemoglobin ABG Sodium ABG Chloride ABG Glucose Oxyhemoglobin Sodium Potassium Chloride 97.9 L Carbon Dioxide 33 H BUN 39 H Creatinine Glucose 119 H POC Glucose 138 H Lactic Acid Calcium Phosphorus Magnesium 2.60 H AST ALT Lactate Dehydrogenase Total Bilirubin Direct Bilirubin CK-MB (CK-2) C-Reactive Protein NT-Pro-B Natriuret Pep Total Protein Albumin Arterial Blood Glucose Urine WBC (Auto) Urine Creatinine 02/03/20 02/04/20 02/04/20 18:28 16:24 16:24 WBC RBC 3.38 L Hgb 8.6 L Hct 26.9 L MCHC RDW 19.5 H MCV 80 L MCH 26 L Lymph % (Auto) [place] % (Auto) [place] # Eos # Lymph # (Auto) [place] # (Auto) Eos # (Auto) Seg Neutrophils % Seg Neuts % (Manual) Baso # (Auto) Lymphocytes % (Manual) Monocytes % (Manual) Eosinophils % (Manual) Basophils % (Manual) Seg Neutrophils # Seg Neutrophils # Man Lymphocytes # (Manual) Monocytes # (Manual) Eosinophils # (Manual) Nucleated RBC % Basophils # (Manual) PT INR APTT Heparin Anti-Xa Level ABG pH POC ABG pO2 ABG pO2 ABG HCO3 ABG O2 Saturation ABG Base Excess POC ABG pCO2 ABG Hemoglobin ABG Oxyhemoglobin ABG Sodium ABG Chloride ABG Glucose Oxyhemoglobin Sodium Potassium 3.4 L Chloride Carbon Dioxide 31 H BUN 37 H Creatinine Glucose 70 L POC Glucose 118 H Lactic Acid Calcium Phosphorus Magnesium AST 169 H ALT 394 H Lactate Dehydrogenase Total Bilirubin 1.50 H Direct Bilirubin CK-MB (CK-2) C-Reactive Protein NT-Pro-B Natriuret Pep Total Protein Albumin 2.9 L Arterial Blood Glucose Urine WBC (Auto) Urine Creatinine 02/05/20 02/05/20 02/05/20 00:41 06:37 17:14 WBC RBC Hgb Hct MCHC RDW MCV MCH Lymph % (Auto) [place] % (Auto) [place] # Eos # Lymph # (Auto) [place] # (Auto) Eos # (Auto) Seg Neutrophils % Seg Neuts % (Manual) Baso # (Auto) Lymphocytes % (Manual) Monocytes % (Manual) Eosinophils % (Manual) Basophils % (Manual) Seg Neutrophils # Seg Neutrophils # Man Lymphocytes # (Manual) Monocytes # (Manual) Eosinophils # (Manual) Nucleated RBC % Basophils # (Manual) PT INR APTT Heparin Anti-Xa Level ABG pH POC ABG pO2 ABG pO2 ABG HCO3 ABG O2 Saturation ABG Base Excess POC ABG pCO2 ABG Hemoglobin ABG Oxyhemoglobin ABG Sodium ABG Chloride ABG Glucose Oxyhemoglobin Sodium Potassium 3.1 L Chloride Carbon Dioxide 35 H BUN 32 H Creatinine 0.7 L Glucose POC Glucose 69 L 127 H Lactic Acid Calcium Phosphorus Magnesium AST 134 H ALT 352 H Lactate Dehydrogenase Total Bilirubin 1.60 H Direct Bilirubin CK-MB (CK-2) C-Reactive Protein NT-Pro-B Natriuret Pep Total Protein Albumin 2.9 L Arterial Blood Glucose Urine WBC (Auto) Urine Creatinine 02/05/20 02/06/20 02/06/20 23:43 05:32 08:01 WBC RBC Hgb Hct MCHC RDW MCV MCH Lymph % (Auto) [place] % (Auto) [place] # Eos # Lymph # (Auto) [place] # (Auto) Eos # (Auto) Seg Neutrophils % Seg Neuts % (Manual) Baso # (Auto) Lymphocytes % (Manual) Monocytes % (Manual) Eosinophils % (Manual) Basophils % (Manual) Seg Neutrophils # Seg Neutrophils # Man Lymphocytes # (Manual) Monocytes # (Manual) Eosinophils # (Manual) Nucleated RBC % Basophils # (Manual) PT INR APTT Heparin Anti-Xa Level ABG pH POC ABG pO2 ABG pO2 ABG HCO3 ABG O2 Saturation ABG Base Excess POC ABG pCO2 ABG Hemoglobin ABG Oxyhemoglobin ABG Sodium ABG Chloride ABG Glucose Oxyhemoglobin Sodium Potassium Chloride Carbon Dioxide BUN 40 H Creatinine Glucose 132 H POC Glucose 129 H 131 H Lactic Acid Calcium Phosphorus Magnesium AST ALT Lactate Dehydrogenase Total Bilirubin Direct Bilirubin CK-MB (CK-2) C-Reactive Protein NT-Pro-B Natriuret Pep Total Protein Albumin Arterial Blood Glucose Urine WBC (Auto) Urine Creatinine 02/06/20 02/06/20 02/06/20 11:51 16:28 17:32 WBC RBC Hgb Hct MCHC RDW MCV MCH Lymph % (Auto) [place] % (Auto) [place] # Eos # Lymph # (Auto) [place] # (Auto) Eos # (Auto) Seg Neutrophils % Seg Neuts % (Manual) Baso # (Auto) Lymphocytes % (Manual) Monocytes % (Manual) Eosinophils % (Manual) Basophils % (Manual) Seg Neutrophils # Seg Neutrophils # Man Lymphocytes # (Manual) Monocytes # (Manual) Eosinophils # (Manual) Nucleated RBC % Basophils # (Manual) PT INR APTT Heparin Anti-Xa Level ABG pH POC ABG pO2 ABG pO2 ABG HCO3 ABG O2 Saturation ABG Base Excess POC ABG pCO2 ABG Hemoglobin ABG Oxyhemoglobin ABG Sodium ABG Chloride ABG Glucose Oxyhemoglobin Sodium Potassium Chloride Carbon Dioxide BUN Creatinine Glucose POC Glucose 167 H 129 H Lactic Acid Calcium Phosphorus Magnesium AST 824 H ALT 948 H Lactate Dehydrogenase Total Bilirubin 1.70 H Direct Bilirubin 1.2 H CK-MB (CK-2) C-Reactive Protein NT-Pro-B Natriuret Pep Total Protein Albumin 2.9 L Arterial Blood Glucose Urine WBC (Auto) Urine Creatinine 02/07/20 02/07/20 02/07/20 00:11 04:57 04:57 WBC RBC Hgb 9.2 L Hct 29.7 L MCHC 31 L RDW 20.2 H MCV 80 L MCH 25 L Lymph % (Auto) [place] % (Auto) [place] # Eos # Lymph # (Auto) [place] # (Auto) Eos # (Auto) Seg Neutrophils % Seg Neuts % (Manual) Baso # (Auto) Lymphocytes % (Manual) Monocytes % (Manual) Eosinophils % (Manual) Basophils % (Manual) Seg Neutrophils # Seg Neutrophils # Man Lymphocytes # (Manual) Monocytes # (Manual) Eosinophils # (Manual) Nucleated RBC % Basophils # (Manual) PT INR APTT Heparin Anti-Xa Level ABG pH POC ABG pO2 ABG pO2 ABG HCO3 ABG O2 Saturation ABG Base Excess POC ABG pCO2 ABG Hemoglobin ABG Oxyhemoglobin ABG Sodium ABG Chloride ABG Glucose Oxyhemoglobin Sodium Potassium 3.4 L D Chloride Carbon Dioxide 32 H BUN 39 H Creatinine Glucose 106 H POC Glucose 121 H Lactic Acid Calcium Phosphorus Magnesium AST ALT Lactate Dehydrogenase Total Bilirubin Direct Bilirubin CK-MB (CK-2) C-Reactive Protein NT-Pro-B Natriuret Pep Total Protein Albumin Arterial Blood Glucose Urine WBC (Auto) Urine Creatinine 02/07/20 02/07/20 02/07/20 15:03 15:03 17:11 WBC RBC Hgb Hct MCHC RDW MCV MCH Lymph % (Auto) [place] % (Auto) [place] # Eos # Lymph # (Auto) [place] # (Auto) Eos # (Auto) Seg Neutrophils % Seg Neuts % (Manual) Baso # (Auto) Lymphocytes % (Manual) Monocytes % (Manual) Eosinophils % (Manual) Basophils % (Manual) Seg Neutrophils # Seg Neutrophils # Man Lymphocytes # (Manual) Monocytes # (Manual) Eosinophils # (Manual) Nucleated RBC % Basophils # (Manual) PT 27.0 H INR 2.46 H APTT Heparin Anti-Xa Level ABG pH POC ABG pO2 ABG pO2 ABG HCO3 ABG O2 Saturation ABG Base Excess POC ABG pCO2 ABG Hemoglobin ABG Oxyhemoglobin ABG Sodium ABG Chloride ABG Glucose Oxyhemoglobin Sodium Potassium Chloride Carbon Dioxide BUN Creatinine Glucose POC Glucose 109 H Lactic Acid Calcium Phosphorus Magnesium AST 424 H ALT 796 H Lactate Dehydrogenase Total Bilirubin 1.60 H Direct Bilirubin 1.2 H CK-MB (CK-2) C-Reactive Protein NT-Pro-B Natriuret Pep Total Protein Albumin 2.9 L Arterial Blood Glucose Urine WBC (Auto) Urine Creatinine 02/08/20 02/08/20 02/08/20 12:14 17:44 19:00 WBC RBC Hgb Hct MCHC RDW MCV MCH Lymph % (Auto) [place] % (Auto) [place] # Eos # Lymph # (Auto) [place] # (Auto) Eos # (Auto) Seg Neutrophils % Seg Neuts % (Manual) Baso # (Auto) Lymphocytes % (Manual) Monocytes % (Manual) Eosinophils % (Manual) Basophils % (Manual) Seg Neutrophils # Seg Neutrophils # Man Lymphocytes # (Manual) Monocytes # (Manual) Eosinophils # (Manual) Nucleated RBC % Basophils # (Manual) PT INR APTT Heparin Anti-Xa Level ABG pH POC ABG pO2 ABG pO2 ABG HCO3 ABG O2 Saturation ABG Base Excess POC ABG pCO2 ABG Hemoglobin ABG Oxyhemoglobin ABG Sodium ABG Chloride ABG Glucose Oxyhemoglobin Sodium Potassium Chloride Carbon Dioxide BUN Creatinine Glucose POC Glucose 111 H 107 H Lactic Acid Calcium Phosphorus Magnesium AST 309 H ALT 650 H Lactate Dehydrogenase Total Bilirubin 1.30 H Direct Bilirubin 0.9 H CK-MB (CK-2) C-Reactive Protein NT-Pro-B Natriuret Pep Total Protein 6.2 L Albumin 2.7 L Arterial Blood Glucose Urine WBC (Auto) Urine Creatinine 02/09/20 02/09/20 02/09/20 05:41 12:28 18:07 WBC RBC Hgb Hct MCHC RDW MCV MCH Lymph % (Auto) [place] % (Auto) [place] # Eos # Lymph # (Auto) [place] # (Auto) Eos # (Auto) Seg Neutrophils % Seg Neuts % (Manual) Baso # (Auto) Lymphocytes % (Manual) Monocytes % (Manual) Eosinophils % (Manual) Basophils % (Manual) Seg Neutrophils # Seg Neutrophils # Man Lymphocytes # (Manual) Monocytes # (Manual) Eosinophils # (Manual) Nucleated RBC % Basophils # (Manual) PT INR APTT Heparin Anti-Xa Level ABG pH POC ABG pO2 ABG pO2 ABG HCO3 ABG O2 Saturation ABG Base Excess POC ABG pCO2 ABG Hemoglobin ABG Oxyhemoglobin ABG Sodium ABG Chloride ABG Glucose Oxyhemoglobin Sodium Potassium Chloride Carbon Dioxide BUN Creatinine Glucose POC Glucose 113 H 140 H 143 H Lactic Acid Calcium Phosphorus Magnesium AST ALT Lactate Dehydrogenase Total Bilirubin Direct Bilirubin CK-MB (CK-2) C-Reactive Protein NT-Pro-B Natriuret Pep Total Protein Albumin Arterial Blood Glucose Urine WBC (Auto) Urine Creatinine 02/09/20 02/09/20 02/10/20 21:40 23:45 06:00 WBC RBC Hgb Hct MCHC RDW MCV MCH Lymph % (Auto) [place] % (Auto) [place] # Eos # Lymph # (Auto) [place] # (Auto) Eos # (Auto) Seg Neutrophils % Seg Neuts % (Manual) Baso # (Auto) Lymphocytes % (Manual) Monocytes % (Manual) Eosinophils % (Manual) Basophils % (Manual) Seg Neutrophils # Seg Neutrophils # Man Lymphocytes # (Manual) Monocytes # (Manual) Eosinophils # (Manual) Nucleated RBC % Basophils # (Manual) PT INR APTT Heparin Anti-Xa Level ABG pH POC ABG pO2 ABG pO2 59.8 L ABG HCO3 33.3 H ABG O2 Saturation 88.9 L ABG Base Excess 7.4 H POC ABG pCO2 ABG Hemoglobin 10.4 L ABG Oxyhemoglobin ABG Sodium ABG Chloride ABG Glucose Oxyhemoglobin 86.3 L Sodium Potassium Chloride Carbon Dioxide BUN Creatinine Glucose POC Glucose 127 H 114 H Lactic Acid Calcium Phosphorus Magnesium AST ALT Lactate Dehydrogenase Total Bilirubin Direct Bilirubin CK-MB (CK-2) C-Reactive Protein NT-Pro-B Natriuret Pep Total Protein Albumin Arterial Blood Glucose Urine WBC (Auto) Urine Creatinine 02/10/20 02/10/20 02/10/20 07:40 07:40 13:38 WBC 11.5 H RBC Hgb 10.6 L Hct 34.7 L MCHC 31 L RDW 19.8 H MCV 79 L MCH 24 L Lymph % (Auto) [place] % (Auto) 9.2 H [place] # Eos # Lymph # (Auto) [place] # (Auto) 1.1 H Eos # (Auto) Seg Neutrophils % Seg Neuts % (Manual) Baso # (Auto) Lymphocytes % (Manual) Monocytes % (Manual) Eosinophils % (Manual) Basophils % (Manual) Seg Neutrophils # Seg Neutrophils # Man Lymphocytes # (Manual) Monocytes # (Manual) Eosinophils # (Manual) Nucleated RBC % Basophils # (Manual) PT INR APTT Heparin Anti-Xa Level ABG pH POC ABG pO2 ABG pO2 ABG HCO3 ABG O2 Saturation ABG Base Excess POC ABG pCO2 ABG Hemoglobin ABG Oxyhemoglobin ABG Sodium ABG Chloride ABG Glucose Oxyhemoglobin Sodium 151 H Potassium Chloride 107.2 H Carbon Dioxide 36 H BUN 25 H Creatinine 0.7 L Glucose 114 H POC Glucose 116 H Lactic Acid Calcium Phosphorus Magnesium 2.40 H AST ALT Lactate Dehydrogenase Total Bilirubin Direct Bilirubin CK-MB (CK-2) C-Reactive Protein NT-Pro-B Natriuret Pep Total Protein Albumin Arterial Blood Glucose Urine WBC (Auto) Urine Creatinine 02/10/20 02/11/20 02/11/20 17:44 05:47 12:21 WBC RBC Hgb Hct MCHC RDW MCV MCH Lymph % (Auto) [place] % (Auto) [place] # Eos # Lymph # (Auto) [place] # (Auto) Eos # (Auto) Seg Neutrophils % Seg Neuts % (Manual) Baso # (Auto) Lymphocytes % (Manual) Monocytes % (Manual) Eosinophils % (Manual) Basophils % (Manual) Seg Neutrophils # Seg Neutrophils # Man Lymphocytes # (Manual) Monocytes # (Manual) Eosinophils # (Manual) Nucleated RBC % Basophils # (Manual) PT INR APTT Heparin Anti-Xa Level ABG pH POC ABG pO2 ABG pO2 ABG HCO3 ABG O2 Saturation ABG Base Excess POC ABG pCO2 ABG Hemoglobin ABG Oxyhemoglobin ABG Sodium ABG Chloride ABG Glucose Oxyhemoglobin Sodium Potassium Chloride Carbon Dioxide BUN Creatinine Glucose POC Glucose 139 H 173 H 143 H Lactic Acid Calcium Phosphorus Magnesium AST ALT Lactate Dehydrogenase Total Bilirubin Direct Bilirubin CK-MB (CK-2) C-Reactive Protein NT-Pro-B Natriuret Pep Total Protein Albumin Arterial Blood Glucose Urine WBC (Auto) Urine Creatinine 02/11/20 02/11/20 02/12/20 13:43 14:11 00:15 WBC RBC Hgb Hct MCHC RDW MCV MCH Lymph % (Auto) [place] % (Auto) [place] # Eos # Lymph # (Auto) [place] # (Auto) Eos # (Auto) Seg Neutrophils % Seg Neuts % (Manual) Baso # (Auto) Lymphocytes % (Manual) Monocytes % (Manual) Eosinophils % (Manual) Basophils % (Manual) Seg Neutrophils # Seg Neutrophils # Man Lymphocytes # (Manual) Monocytes # (Manual) Eosinophils # (Manual) Nucleated RBC % Basophils # (Manual) PT INR APTT Heparin Anti-Xa Level ABG pH 7.502 H POC ABG pO2 77.7 L ABG pO2 ABG HCO3 ABG O2 Saturation ABG Base Excess POC ABG pCO2 ABG Hemoglobin 11.1 L ABG Oxyhemoglobin ABG Sodium ABG Chloride 108.0 H ABG Glucose 151 H Oxyhemoglobin Sodium Potassium Chloride Carbon Dioxide BUN Creatinine Glucose POC Glucose 130 H 125 H Lactic Acid Calcium Phosphorus Magnesium AST ALT Lactate Dehydrogenase Total Bilirubin Direct Bilirubin CK-MB (CK-2) C-Reactive Protein NT-Pro-B Natriuret Pep Total Protein Albumin Arterial Blood Glucose 151 H Urine WBC (Auto) Urine Creatinine 02/12/20 02/12/20 02/12/20 04:56 04:56 17:42 WBC RBC Hgb 9.9 L Hct 31.8 L MCHC 31 L RDW 19.4 H MCV 79 L MCH 25 L Lymph % (Auto) [place] % (Auto) 10.3 H [place] # Eos # Lymph # (Auto) [place] # (Auto) 1.0 H Eos # (Auto) Seg Neutrophils % Seg Neuts % (Manual) Baso # (Auto) Lymphocytes % (Manual) Monocytes % (Manual) Eosinophils % (Manual) Basophils % (Manual) Seg Neutrophils # Seg Neutrophils # Man Lymphocytes # (Manual) Monocytes # (Manual) Eosinophils # (Manual) Nucleated RBC % Basophils # (Manual) PT INR APTT Heparin Anti-Xa Level ABG pH POC ABG pO2 ABG pO2 ABG HCO3 ABG O2 Saturation ABG Base Excess POC ABG pCO2 ABG Hemoglobin ABG Oxyhemoglobin ABG Sodium ABG Chloride ABG Glucose Oxyhemoglobin Sodium 149 H Potassium Chloride 108.6 H Carbon Dioxide BUN 28 H Creatinine 0.7 L Glucose 108 H POC Glucose 113 H Lactic Acid Calcium Phosphorus Magnesium AST ALT Lactate Dehydrogenase Total Bilirubin Direct Bilirubin CK-MB (CK-2) C-Reactive Protein NT-Pro-B Natriuret Pep Total Protein Albumin Arterial Blood Glucose Urine WBC (Auto) Urine Creatinine 02/13/20 02/13/20 02/13/20 00:39 05:36 12:25 WBC RBC Hgb Hct MCHC RDW MCV MCH Lymph % (Auto) [place] % (Auto) [place] # Eos # Lymph # (Auto) [place] # (Auto) Eos # (Auto) Seg Neutrophils % Seg Neuts % (Manual) Baso # (Auto) Lymphocytes % (Manual) Monocytes % (Manual) Eosinophils % (Manual) Basophils % (Manual) Seg Neutrophils # Seg Neutrophils # Man Lymphocytes # (Manual) Monocytes # (Manual) Eosinophils # (Manual) Nucleated RBC % Basophils # (Manual) PT INR APTT Heparin Anti-Xa Level ABG pH POC ABG pO2 ABG pO2 ABG HCO3 ABG O2 Saturation ABG Base Excess POC ABG pCO2 ABG Hemoglobin ABG Oxyhemoglobin ABG Sodium ABG Chloride ABG Glucose Oxyhemoglobin Sodium Potassium Chloride Carbon Dioxide BUN Creatinine Glucose POC Glucose 129 H 126 H 129 H Lactic Acid Calcium Phosphorus Magnesium AST ALT Lactate Dehydrogenase Total Bilirubin Direct Bilirubin CK-MB (CK-2) C-Reactive Protein NT-Pro-B Natriuret Pep Total Protein Albumin Arterial Blood Glucose Urine WBC (Auto) Urine Creatinine 02/13/20 02/14/20 02/14/20 17:59 00:15 05:41 WBC RBC Hgb Hct MCHC RDW MCV MCH Lymph % (Auto) [place] % (Auto) [place] # Eos # Lymph # (Auto) [place] # (Auto) Eos # (Auto) Seg Neutrophils % Seg Neuts % (Manual) Baso # (Auto) Lymphocytes % (Manual) Monocytes % (Manual) Eosinophils % (Manual) Basophils % (Manual) Seg Neutrophils # Seg Neutrophils # Man Lymphocytes # (Manual) Monocytes # (Manual) Eosinophils # (Manual) Nucleated RBC % Basophils # (Manual) PT INR APTT Heparin Anti-Xa Level ABG pH POC ABG pO2 ABG pO2 ABG HCO3 ABG O2 Saturation ABG Base Excess POC ABG pCO2 ABG Hemoglobin ABG Oxyhemoglobin ABG Sodium ABG Chloride ABG Glucose Oxyhemoglobin Sodium Potassium Chloride Carbon Dioxide BUN Creatinine Glucose POC Glucose 153 H 130 H 130 H Lactic Acid Calcium Phosphorus Magnesium AST ALT Lactate Dehydrogenase Total Bilirubin Direct Bilirubin CK-MB (CK-2) C-Reactive Protein NT-Pro-B Natriuret Pep Total Protein Albumin Arterial Blood Glucose Urine WBC (Auto) Urine Creatinine 02/14/20 02/15/20 02/15/20 11:32 00:12 05:27 WBC RBC Hgb Hct MCHC RDW MCV MCH Lymph % (Auto) [place] % (Auto) [place] # Eos # Lymph # (Auto) [place] # (Auto) Eos # (Auto) Seg Neutrophils % Seg Neuts % (Manual) Baso # (Auto) Lymphocytes % (Manual) Monocytes % (Manual) Eosinophils % (Manual) Basophils % (Manual) Seg Neutrophils # Seg Neutrophils # Man Lymphocytes # (Manual) Monocytes # (Manual) Eosinophils # (Manual) Nucleated RBC % Basophils # (Manual) PT INR APTT Heparin Anti-Xa Level ABG pH POC ABG pO2 ABG pO2 ABG HCO3 ABG O2 Saturation ABG Base Excess POC ABG pCO2 ABG Hemoglobin ABG Oxyhemoglobin ABG Sodium ABG Chloride ABG Glucose Oxyhemoglobin Sodium Potassium Chloride Carbon Dioxide BUN Creatinine Glucose POC Glucose 157 H 124 H 111 H Lactic Acid Calcium Phosphorus Magnesium AST ALT Lactate Dehydrogenase Total Bilirubin Direct Bilirubin CK-MB (CK-2) C-Reactive Protein NT-Pro-B Natriuret Pep Total Protein Albumin Arterial Blood Glucose Urine WBC (Auto) Urine Creatinine 02/15/20 02/15/20 02/15/20 06:59 06:59 11:14 WBC RBC Hgb 10.4 L Hct 33.7 L MCHC 31 L RDW 19.4 H MCV 80 L MCH 24 L Lymph % (Auto) [place] % (Auto) [place] # Eos # Lymph # (Auto) [place] # (Auto) Eos # (Auto) Seg Neutrophils % Seg Neuts % (Manual) Baso # (Auto) Lymphocytes % (Manual) Monocytes % (Manual) Eosinophils % (Manual) Basophils % (Manual) 2.0 H Seg Neutrophils # Seg Neutrophils # Man Lymphocytes # (Manual) Monocytes # (Manual) Eosinophils # (Manual) Nucleated RBC % 1.0 H Basophils # (Manual) 0.2 H PT INR APTT Heparin Anti-Xa Level ABG pH POC ABG pO2 ABG pO2 ABG HCO3 ABG O2 Saturation ABG Base Excess POC ABG pCO2 ABG Hemoglobin ABG Oxyhemoglobin ABG Sodium ABG Chloride ABG Glucose Oxyhemoglobin Sodium 149 H Potassium Chloride 108.4 H Carbon Dioxide 31 H BUN 40 H Creatinine 0.7 L Glucose 150 H POC Glucose 128 H Lactic Acid Calcium Phosphorus Magnesium AST ALT Lactate Dehydrogenase Total Bilirubin Direct Bilirubin CK-MB (CK-2) C-Reactive Protein NT-Pro-B Natriuret Pep Total Protein Albumin Arterial Blood Glucose Urine WBC (Auto) Urine Creatinine 02/15/20 02/15/20 02/16/20 17:46 23:50 05:03 WBC RBC Hgb Hct MCHC RDW MCV MCH Lymph % (Auto) [place] % (Auto) [place] # Eos # Lymph # (Auto) [place] # (Auto) Eos # (Auto) Seg Neutrophils % Seg Neuts % (Manual) Baso # (Auto) Lymphocytes % (Manual) Monocytes % (Manual) Eosinophils % (Manual) Basophils % (Manual) Seg Neutrophils # Seg Neutrophils # Man Lymphocytes # (Manual) Monocytes # (Manual) Eosinophils # (Manual) Nucleated RBC % Basophils # (Manual) PT INR APTT Heparin Anti-Xa Level ABG pH POC ABG pO2 ABG pO2 ABG HCO3 ABG O2 Saturation ABG Base Excess POC ABG pCO2 ABG Hemoglobin ABG Oxyhemoglobin ABG Sodium ABG Chloride ABG Glucose Oxyhemoglobin Sodium Potassium Chloride Carbon Dioxide BUN Creatinine Glucose POC Glucose 154 H 135 H 148 H Lactic Acid Calcium Phosphorus Magnesium AST ALT Lactate Dehydrogenase Total Bilirubin Direct Bilirubin CK-MB (CK-2) C-Reactive Protein NT-Pro-B Natriuret Pep Total Protein Albumin Arterial Blood Glucose Urine WBC (Auto) Urine Creatinine 02/16/20 02/16/20 02/16/20 07:53 11:28 17:52 WBC RBC Hgb Hct MCHC RDW MCV MCH Lymph % (Auto) [place] % (Auto) [place] # Eos # Lymph # (Auto) [place] # (Auto) Eos # (Auto) Seg Neutrophils % Seg Neuts % (Manual) Baso # (Auto) Lymphocytes % (Manual) Monocytes % (Manual) Eosinophils % (Manual) Basophils % (Manual) Seg Neutrophils # Seg Neutrophils # Man Lymphocytes # (Manual) Monocytes # (Manual) Eosinophils # (Manual) Nucleated RBC % Basophils # (Manual) PT INR APTT Heparin Anti-Xa Level ABG pH POC ABG pO2 ABG pO2 ABG HCO3 ABG O2 Saturation ABG Base Excess POC ABG pCO2 ABG Hemoglobin ABG Oxyhemoglobin ABG Sodium ABG Chloride ABG Glucose Oxyhemoglobin Sodium Potassium Chloride 107.9 H Carbon Dioxide BUN 38 H Creatinine 0.6 L Glucose 151 H POC Glucose 123 H 152 H Lactic Acid Calcium Phosphorus Magnesium AST ALT Lactate Dehydrogenase Total Bilirubin Direct Bilirubin CK-MB (CK-2) C-Reactive Protein NT-Pro-B Natriuret Pep Total Protein Albumin Arterial Blood Glucose Urine WBC (Auto) Urine Creatinine 02/16/20 02/17/20 02/17/20 23:49 06:24 11:36 WBC RBC Hgb Hct MCHC RDW MCV MCH Lymph % (Auto) [place] % (Auto) [place] # Eos # Lymph # (Auto) [place] # (Auto) Eos # (Auto) Seg Neutrophils % Seg Neuts % (Manual) Baso # (Auto) Lymphocytes % (Manual) Monocytes % (Manual) Eosinophils % (Manual) Basophils % (Manual) Seg Neutrophils # Seg Neutrophils # Man Lymphocytes # (Manual) Monocytes # (Manual) Eosinophils # (Manual) Nucleated RBC % Basophils # (Manual) PT INR APTT Heparin Anti-Xa Level ABG pH POC ABG pO2 ABG pO2 ABG HCO3 ABG O2 Saturation ABG Base Excess POC ABG pCO2 ABG Hemoglobin ABG Oxyhemoglobin ABG Sodium ABG Chloride ABG Glucose Oxyhemoglobin Sodium Potassium Chloride Carbon Dioxide BUN Creatinine Glucose POC Glucose 156 H 193 H 162 H Lactic Acid Calcium Phosphorus Magnesium AST ALT Lactate Dehydrogenase Total Bilirubin Direct Bilirubin CK-MB (CK-2) C-Reactive Protein NT-Pro-B Natriuret Pep Total Protein Albumin Arterial Blood Glucose Urine WBC (Auto) Urine Creatinine 02/17/20 02/17/20 02/18/20 17:55 23:28 05:11 WBC RBC Hgb Hct MCHC RDW MCV MCH Lymph % (Auto) [place] % (Auto) [place] # Eos # Lymph # (Auto) [place] # (Auto) Eos # (Auto) Seg Neutrophils % Seg Neuts % (Manual) Baso # (Auto) Lymphocytes % (Manual) Monocytes % (Manual) Eosinophils % (Manual) Basophils % (Manual) Seg Neutrophils # Seg Neutrophils # Man Lymphocytes # (Manual) Monocytes # (Manual) Eosinophils # (Manual) Nucleated RBC % Basophils # (Manual) PT INR APTT Heparin Anti-Xa Level ABG pH POC ABG pO2 ABG pO2 ABG HCO3 ABG O2 Saturation ABG Base Excess POC ABG pCO2 ABG Hemoglobin ABG Oxyhemoglobin ABG Sodium ABG Chloride ABG Glucose Oxyhemoglobin Sodium Potassium Chloride Carbon Dioxide BUN Creatinine Glucose POC Glucose 165 H 146 H 122 H Lactic Acid Calcium Phosphorus Magnesium AST ALT Lactate Dehydrogenase Total Bilirubin Direct Bilirubin CK-MB (CK-2) C-Reactive Protein NT-Pro-B Natriuret Pep Total Protein Albumin Arterial Blood Glucose Urine WBC (Auto) Urine Creatinine 02/18/20 02/18/20 02/19/20 12:24 17:29 00:01 WBC RBC Hgb Hct MCHC RDW MCV MCH Lymph % (Auto) [place] % (Auto) [place] # Eos # Lymph # (Auto) [place] # (Auto) Eos # (Auto) Seg Neutrophils % Seg Neuts % (Manual) Baso # (Auto) Lymphocytes % (Manual) Monocytes % (Manual) Eosinophils % (Manual) Basophils % (Manual) Seg Neutrophils # Seg Neutrophils # Man Lymphocytes # (Manual) Monocytes # (Manual) Eosinophils # (Manual) Nucleated RBC % Basophils # (Manual) PT INR APTT Heparin Anti-Xa Level ABG pH POC ABG pO2 ABG pO2 ABG HCO3 ABG O2 Saturation ABG Base Excess POC ABG pCO2 ABG Hemoglobin ABG Oxyhemoglobin ABG Sodium ABG Chloride ABG Glucose Oxyhemoglobin Sodium Potassium Chloride Carbon Dioxide BUN Creatinine Glucose POC Glucose 162 H 136 H 145 H Lactic Acid Calcium Phosphorus Magnesium AST ALT Lactate Dehydrogenase Total Bilirubin Direct Bilirubin CK-MB (CK-2) C-Reactive Protein NT-Pro-B Natriuret Pep Total Protein Albumin Arterial Blood Glucose Urine WBC (Auto) Urine Creatinine 02/19/20 02/19/20 02/19/20 05:53 11:44 17:32 WBC RBC Hgb Hct MCHC RDW MCV MCH Lymph % (Auto) [place] % (Auto) [place] # Eos # Lymph # (Auto) [place] # (Auto) Eos # (Auto) Seg Neutrophils % Seg Neuts % (Manual) Baso # (Auto) Lymphocytes % (Manual) Monocytes % (Manual) Eosinophils % (Manual) Basophils % (Manual) Seg Neutrophils # Seg Neutrophils # Man Lymphocytes # (Manual) Monocytes # (Manual) Eosinophils # (Manual) Nucleated RBC % Basophils # (Manual) PT INR APTT Heparin Anti-Xa Level ABG pH POC ABG pO2 ABG pO2 ABG HCO3 ABG O2 Saturation ABG Base Excess POC ABG pCO2 ABG Hemoglobin ABG Oxyhemoglobin ABG Sodium ABG Chloride ABG Glucose Oxyhemoglobin Sodium Potassium Chloride Carbon Dioxide BUN Creatinine Glucose POC Glucose 116 H 120 H 154 H Lactic Acid Calcium Phosphorus Magnesium AST ALT Lactate Dehydrogenase Total Bilirubin Direct Bilirubin CK-MB (CK-2) C-Reactive Protein NT-Pro-B Natriuret Pep Total Protein Albumin Arterial Blood Glucose Urine WBC (Auto) Urine Creatinine 02/19/20 02/20/20 02/20/20 23:43 00:24 00:24 WBC RBC Hgb 9.4 L Hct 30.0 L MCHC 31 L RDW 20.4 H MCV 79 L MCH 25 L Lymph % (Auto) [place] % (Auto) 8.5 H [place] # Eos # Lymph # (Auto) [place] # (Auto) Eos # (Auto) Seg Neutrophils % Seg Neuts % (Manual) Baso # (Auto) Lymphocytes % (Manual) Monocytes % (Manual) Eosinophils % (Manual) Basophils % (Manual) Seg Neutrophils # Seg Neutrophils # Man Lymphocytes # (Manual) Monocytes # (Manual) Eosinophils # (Manual) Nucleated RBC % Basophils # (Manual) PT INR APTT Heparin Anti-Xa Level ABG pH POC ABG pO2 ABG pO2 ABG HCO3 ABG O2 Saturation ABG Base Excess POC ABG pCO2 ABG Hemoglobin ABG Oxyhemoglobin ABG Sodium ABG Chloride ABG Glucose Oxyhemoglobin Sodium 147 H Potassium 3.4 L Chloride Carbon Dioxide 31 H BUN 34 H Creatinine 0.5 L Glucose 135 H POC Glucose 122 H Lactic Acid Calcium Phosphorus Magnesium AST ALT Lactate Dehydrogenase Total Bilirubin Direct Bilirubin CK-MB (CK-2) C-Reactive Protein NT-Pro-B Natriuret Pep Total Protein Albumin Arterial Blood Glucose Urine WBC (Auto) Urine Creatinine 02/20/20 02/20/20 02/20/20 06:07 06:45 12:03 WBC RBC Hgb Hct MCHC RDW MCV MCH Lymph % (Auto) [place] % (Auto) [place] # Eos # Lymph # (Auto) [place] # (Auto) Eos # (Auto) Seg Neutrophils % Seg Neuts % (Manual) Baso # (Auto) Lymphocytes % (Manual) Monocytes % (Manual) Eosinophils % (Manual) Basophils % (Manual) Seg Neutrophils # Seg Neutrophils # Man Lymphocytes # (Manual) Monocytes # (Manual) Eosinophils # (Manual) Nucleated RBC % Basophils # (Manual) PT INR APTT Heparin Anti-Xa Level ABG pH 7.461 H POC ABG pO2 ABG pO2 ABG HCO3 33.3 H ABG O2 Saturation ABG Base Excess 8.4 H POC ABG pCO2 ABG Hemoglobin 10.0 L ABG Oxyhemoglobin ABG Sodium ABG Chloride ABG Glucose Oxyhemoglobin 94.1 L Sodium Potassium Chloride Carbon Dioxide BUN Creatinine Glucose POC Glucose 109 H 128 H Lactic Acid Calcium Phosphorus Magnesium AST ALT Lactate Dehydrogenase Total Bilirubin Direct Bilirubin CK-MB (CK-2) C-Reactive Protein NT-Pro-B Natriuret Pep Total Protein Albumin Arterial Blood Glucose Urine WBC (Auto) Urine Creatinine 02/20/20 02/20/20 02/21/20 18:02 23:55 05:42 WBC RBC Hgb Hct MCHC RDW MCV MCH Lymph % (Auto) [place] % (Auto) [place] # Eos # Lymph # (Auto) [place] # (Auto) Eos # (Auto) Seg Neutrophils % Seg Neuts % (Manual) Baso # (Auto) Lymphocytes % (Manual) Monocytes % (Manual) Eosinophils % (Manual) Basophils % (Manual) Seg Neutrophils # Seg Neutrophils # Man Lymphocytes # (Manual) Monocytes # (Manual) Eosinophils # (Manual) Nucleated RBC % Basophils # (Manual) PT INR APTT Heparin Anti-Xa Level ABG pH POC ABG pO2 ABG pO2 ABG HCO3 ABG O2 Saturation ABG Base Excess POC ABG pCO2 ABG Hemoglobin ABG Oxyhemoglobin ABG Sodium ABG Chloride ABG Glucose Oxyhemoglobin Sodium Potassium Chloride Carbon Dioxide BUN Creatinine Glucose POC Glucose 118 H 125 H 127 H Lactic Acid Calcium Phosphorus Magnesium AST ALT Lactate Dehydrogenase Total Bilirubin Direct Bilirubin CK-MB (CK-2) C-Reactive Protein NT-Pro-B Natriuret Pep Total Protein Albumin Arterial Blood Glucose Urine WBC (Auto) Urine Creatinine 02/21/20 02/21/20 02/21/20 12:10 17:35 23:40 WBC RBC Hgb Hct MCHC RDW MCV MCH Lymph % (Auto) [place] % (Auto) [place] # Eos # Lymph # (Auto) [place] # (Auto) Eos # (Auto) Seg Neutrophils % Seg Neuts % (Manual) Baso # (Auto) Lymphocytes % (Manual) Monocytes % (Manual) Eosinophils % (Manual) Basophils % (Manual) Seg Neutrophils # Seg Neutrophils # Man Lymphocytes # (Manual) Monocytes # (Manual) Eosinophils # (Manual) Nucleated RBC % Basophils # (Manual) PT INR APTT Heparin Anti-Xa Level ABG pH POC ABG pO2 ABG pO2 ABG HCO3 ABG O2 Saturation ABG Base Excess POC ABG pCO2 ABG Hemoglobin ABG Oxyhemoglobin ABG Sodium ABG Chloride ABG Glucose Oxyhemoglobin Sodium Potassium Chloride Carbon Dioxide BUN Creatinine Glucose POC Glucose 128 H 113 H 125 H Lactic Acid Calcium Phosphorus Magnesium AST ALT Lactate Dehydrogenase Total Bilirubin Direct Bilirubin CK-MB (CK-2) C-Reactive Protein NT-Pro-B Natriuret Pep Total Protein Albumin Arterial Blood Glucose Urine WBC (Auto) Urine Creatinine 02/22/20 02/22/20 02/22/20 05:57 08:06 08:06 WBC RBC Hgb 10.8 L Hct 35.2 L MCHC 31 L RDW 21.8 H MCV 80 L MCH 25 L Lymph % (Auto) [place] % (Auto) [place] # Eos # Lymph # (Auto) [place] # (Auto) Eos # (Auto) Seg Neutrophils % 71.5 H Seg Neuts % (Manual) Baso # (Auto) Lymphocytes % (Manual) Monocytes % (Manual) Eosinophils % (Manual) Basophils % (Manual) Seg Neutrophils # Seg Neutrophils # Man Lymphocytes # (Manual) Monocytes # (Manual) Eosinophils # (Manual) Nucleated RBC % Basophils # (Manual) PT INR APTT Heparin Anti-Xa Level ABG pH POC ABG pO2 ABG pO2 ABG HCO3 ABG O2 Saturation ABG Base Excess POC ABG pCO2 ABG Hemoglobin ABG Oxyhemoglobin ABG Sodium ABG Chloride ABG Glucose Oxyhemoglobin Sodium 146 H Potassium Chloride Carbon Dioxide 34 H BUN 21 H Creatinine 0.4 L Glucose 149 H POC Glucose 138 H Lactic Acid Calcium Phosphorus Magnesium AST ALT Lactate Dehydrogenase Total Bilirubin Direct Bilirubin CK-MB (CK-2) C-Reactive Protein NT-Pro-B Natriuret Pep Total Protein Albumin Arterial Blood Glucose Urine WBC (Auto) Urine Creatinine 02/22/20 02/22/20 02/22/20 11:47 17:11 23:25 WBC RBC Hgb Hct MCHC RDW MCV MCH Lymph % (Auto) [place] % (Auto) [place] # Eos # Lymph # (Auto) [place] # (Auto) Eos # (Auto) Seg Neutrophils % Seg Neuts % (Manual) Baso # (Auto) Lymphocytes % (Manual) Monocytes % (Manual) Eosinophils % (Manual) Basophils % (Manual) Seg Neutrophils # Seg Neutrophils # Man Lymphocytes # (Manual) Monocytes # (Manual) Eosinophils # (Manual) Nucleated RBC % Basophils # (Manual) PT INR APTT Heparin Anti-Xa Level ABG pH POC ABG pO2 ABG pO2 ABG HCO3 ABG O2 Saturation ABG Base Excess POC ABG pCO2 ABG Hemoglobin ABG Oxyhemoglobin ABG Sodium ABG Chloride ABG Glucose Oxyhemoglobin Sodium Potassium Chloride Carbon Dioxide BUN Creatinine Glucose POC Glucose 149 H 144 H 142 H Lactic Acid Calcium Phosphorus Magnesium AST ALT Lactate Dehydrogenase Total Bilirubin Direct Bilirubin CK-MB (CK-2) C-Reactive Protein NT-Pro-B Natriuret Pep Total Protein Albumin Arterial Blood Glucose Urine WBC (Auto) Urine Creatinine 02/23/20 02/23/20 02/23/20 05:22 11:37 18:14 WBC RBC Hgb Hct MCHC RDW MCV MCH Lymph % (Auto) [place] % (Auto) [place] # Eos # Lymph # (Auto) [place] # (Auto) Eos # (Auto) Seg Neutrophils % Seg Neuts % (Manual) Baso # (Auto) Lymphocytes % (Manual) Monocytes % (Manual) Eosinophils % (Manual) Basophils % (Manual) Seg Neutrophils # Seg Neutrophils # Man Lymphocytes # (Manual) Monocytes # (Manual) Eosinophils # (Manual) Nucleated RBC % Basophils # (Manual) PT INR APTT Heparin Anti-Xa Level ABG pH POC ABG pO2 ABG pO2 ABG HCO3 ABG O2 Saturation ABG Base Excess POC ABG pCO2 ABG Hemoglobin ABG Oxyhemoglobin ABG Sodium ABG Chloride ABG Glucose Oxyhemoglobin Sodium Potassium Chloride Carbon Dioxide BUN Creatinine Glucose POC Glucose 144 H 113 H 127 H Lactic Acid Calcium Phosphorus Magnesium AST ALT Lactate Dehydrogenase Total Bilirubin Direct Bilirubin CK-MB (CK-2) C-Reactive Protein NT-Pro-B Natriuret Pep Total Protein Albumin Arterial Blood Glucose Urine WBC (Auto) Urine Creatinine 02/23/20 02/24/20 02/24/20 23:45 05:50 11:24 WBC RBC Hgb Hct MCHC RDW MCV MCH Lymph % (Auto) [place] % (Auto) [place] # Eos # Lymph # (Auto) [place] # (Auto) Eos # (Auto) Seg Neutrophils % Seg Neuts % (Manual) Baso # (Auto) Lymphocytes % (Manual) Monocytes % (Manual) Eosinophils % (Manual) Basophils % (Manual) Seg Neutrophils # Seg Neutrophils # Man Lymphocytes # (Manual) Monocytes # (Manual) Eosinophils # (Manual) Nucleated RBC % Basophils # (Manual) PT INR APTT Heparin Anti-Xa Level ABG pH POC ABG pO2 ABG pO2 ABG HCO3 ABG O2 Saturation ABG Base Excess POC ABG pCO2 ABG Hemoglobin ABG Oxyhemoglobin ABG Sodium ABG Chloride ABG Glucose Oxyhemoglobin Sodium Potassium Chloride Carbon Dioxide BUN Creatinine Glucose POC Glucose 123 H 117 H 126 H Lactic Acid Calcium Phosphorus Magnesium AST ALT Lactate Dehydrogenase Total Bilirubin Direct Bilirubin CK-MB (CK-2) C-Reactive Protein NT-Pro-B Natriuret Pep Total Protein Albumin Arterial Blood Glucose Urine WBC (Auto) Urine Creatinine 02/24/20 02/24/20 02/25/20 18:35 23:27 05:20 WBC RBC Hgb Hct MCHC RDW MCV MCH Lymph % (Auto) [place] % (Auto) [place] # Eos # Lymph # (Auto) [place] # (Auto) Eos # (Auto) Seg Neutrophils % Seg Neuts % (Manual) Baso # (Auto) Lymphocytes % (Manual) Monocytes % (Manual) Eosinophils % (Manual) Basophils % (Manual) Seg Neutrophils # Seg Neutrophils # Man Lymphocytes # (Manual) Monocytes # (Manual) Eosinophils # (Manual) Nucleated RBC % Basophils # (Manual) PT INR APTT Heparin Anti-Xa Level ABG pH POC ABG pO2 ABG pO2 ABG HCO3 ABG O2 Saturation ABG Base Excess POC ABG pCO2 ABG Hemoglobin ABG Oxyhemoglobin ABG Sodium ABG Chloride ABG Glucose Oxyhemoglobin Sodium Potassium Chloride Carbon Dioxide BUN Creatinine Glucose POC Glucose 121 H 127 H 133 H Lactic Acid Calcium Phosphorus Magnesium AST ALT Lactate Dehydrogenase Total Bilirubin Direct Bilirubin CK-MB (CK-2) C-Reactive Protein NT-Pro-B Natriuret Pep Total Protein Albumin Arterial Blood Glucose Urine WBC (Auto) Urine Creatinine 02/25/20 02/25/20 02/25/20 12:08 17:26 23:33 WBC RBC Hgb Hct MCHC RDW MCV MCH Lymph % (Auto) [place] % (Auto) [place] # Eos # Lymph # (Auto) [place] # (Auto) Eos # (Auto) Seg Neutrophils % Seg Neuts % (Manual) Baso # (Auto) Lymphocytes % (Manual) Monocytes % (Manual) Eosinophils % (Manual) Basophils % (Manual) Seg Neutrophils # Seg Neutrophils # Man Lymphocytes # (Manual) Monocytes # (Manual) Eosinophils # (Manual) Nucleated RBC % Basophils # (Manual) PT INR APTT Heparin Anti-Xa Level ABG pH POC ABG pO2 ABG pO2 ABG HCO3 ABG O2 Saturation ABG Base Excess POC ABG pCO2 ABG Hemoglobin ABG Oxyhemoglobin ABG Sodium ABG Chloride ABG Glucose Oxyhemoglobin Sodium Potassium Chloride Carbon Dioxide BUN Creatinine Glucose POC Glucose 109 H 120 H 120 H Lactic Acid Calcium Phosphorus Magnesium AST ALT Lactate Dehydrogenase Total Bilirubin Direct Bilirubin CK-MB (CK-2) C-Reactive Protein NT-Pro-B Natriuret Pep Total Protein Albumin Arterial Blood Glucose Urine WBC (Auto) Urine Creatinine 02/26/20 02/26/20 02/27/20 05:33 07:50 12:13 WBC RBC Hgb Hct MCHC RDW MCV MCH Lymph % (Auto) [place] % (Auto) [place] # Eos # Lymph # (Auto) [place] # (Auto) Eos # (Auto) Seg Neutrophils % Seg Neuts % (Manual) Baso # (Auto) Lymphocytes % (Manual) Monocytes % (Manual) Eosinophils % (Manual) Basophils % (Manual) Seg Neutrophils # Seg Neutrophils # Man Lymphocytes # (Manual) Monocytes # (Manual) Eosinophils # (Manual) Nucleated RBC % Basophils # (Manual) PT INR APTT Heparin Anti-Xa Level ABG pH POC ABG pO2 ABG pO2 ABG HCO3 ABG O2 Saturation ABG Base Excess POC ABG pCO2 ABG Hemoglobin ABG Oxyhemoglobin ABG Sodium ABG Chloride ABG Glucose Oxyhemoglobin Sodium Potassium Chloride Carbon Dioxide BUN Creatinine Glucose POC Glucose 106 H 130 H Lactic Acid Calcium Phosphorus Magnesium AST ALT Lactate Dehydrogenase Total Bilirubin Direct Bilirubin CK-MB (CK-2) C-Reactive Protein NT-Pro-B Natriuret Pep Total Protein Albumin Arterial Blood Glucose Urine WBC (Auto) > 182.0 H Urine Creatinine 02/27/20 02/27/20 02/28/20 18:20 23:33 05:01 WBC RBC Hgb Hct MCHC RDW MCV MCH Lymph % (Auto) [place] % (Auto) [place] # Eos # Lymph # (Auto) [place] # (Auto) Eos # (Auto) Seg Neutrophils % Seg Neuts % (Manual) Baso # (Auto) Lymphocytes % (Manual) Monocytes % (Manual) Eosinophils % (Manual) Basophils % (Manual) Seg Neutrophils # Seg Neutrophils # Man Lymphocytes # (Manual) Monocytes # (Manual) Eosinophils # (Manual) Nucleated RBC % Basophils # (Manual) PT INR APTT Heparin Anti-Xa Level ABG pH POC ABG pO2 ABG pO2 ABG HCO3 ABG O2 Saturation ABG Base Excess POC ABG pCO2 ABG Hemoglobin ABG Oxyhemoglobin ABG Sodium ABG Chloride ABG Glucose Oxyhemoglobin Sodium Potassium Chloride Carbon Dioxide BUN Creatinine Glucose POC Glucose 109 H 124 H 134 H Lactic Acid Calcium Phosphorus Magnesium AST ALT Lactate Dehydrogenase Total Bilirubin Direct Bilirubin CK-MB (CK-2) C-Reactive Protein NT-Pro-B Natriuret Pep Total Protein Albumin Arterial Blood Glucose Urine WBC (Auto) Urine Creatinine 02/28/20 02/28/20 02/28/20 11:54 18:16 23:03 WBC RBC Hgb Hct MCHC RDW MCV MCH Lymph % (Auto) [place] % (Auto) [place] # Eos # Lymph # (Auto) [place] # (Auto) Eos # (Auto) Seg Neutrophils % Seg Neuts % (Manual) Baso # (Auto) Lymphocytes % (Manual) Monocytes % (Manual) Eosinophils % (Manual) Basophils % (Manual) Seg Neutrophils # Seg Neutrophils # Man Lymphocytes # (Manual) Monocytes # (Manual) Eosinophils # (Manual) Nucleated RBC % Basophils # (Manual) PT INR APTT Heparin Anti-Xa Level ABG pH POC ABG pO2 ABG pO2 ABG HCO3 ABG O2 Saturation ABG Base Excess POC ABG pCO2 ABG Hemoglobin ABG Oxyhemoglobin ABG Sodium ABG Chloride ABG Glucose Oxyhemoglobin Sodium Potassium Chloride Carbon Dioxide BUN Creatinine Glucose POC Glucose 133 H 134 H 146 H Lactic Acid Calcium Phosphorus Magnesium AST ALT Lactate Dehydrogenase Total Bilirubin Direct Bilirubin CK-MB (CK-2) C-Reactive Protein NT-Pro-B Natriuret Pep Total Protein Albumin Arterial Blood Glucose Urine WBC (Auto) Urine Creatinine 02/29/20 02/29/20 02/29/20 05:24 11:34 17:12 WBC RBC Hgb Hct MCHC RDW MCV MCH Lymph % (Auto) [place] % (Auto) [place] # Eos # Lymph # (Auto) [place] # (Auto) Eos # (Auto) Seg Neutrophils % Seg Neuts % (Manual) Baso # (Auto) Lymphocytes % (Manual) Monocytes % (Manual) Eosinophils % (Manual) Basophils % (Manual) Seg Neutrophils # Seg Neutrophils # Man Lymphocytes # (Manual) Monocytes # (Manual) Eosinophils # (Manual) Nucleated RBC % Basophils # (Manual) PT INR APTT Heparin Anti-Xa Level ABG pH POC ABG pO2 ABG pO2 ABG HCO3 ABG O2 Saturation ABG Base Excess POC ABG pCO2 ABG Hemoglobin ABG Oxyhemoglobin ABG Sodium ABG Chloride ABG Glucose Oxyhemoglobin Sodium Potassium Chloride Carbon Dioxide BUN Creatinine Glucose POC Glucose 139 H 141 H 157 H Lactic Acid Calcium Phosphorus Magnesium AST ALT Lactate Dehydrogenase Total Bilirubin Direct Bilirubin CK-MB (CK-2) C-Reactive Protein NT-Pro-B Natriuret Pep Total Protein Albumin Arterial Blood Glucose Urine WBC (Auto) Urine Creatinine 02/29/20 03/01/20 03/01/20 23:35 06:00 11:53 WBC RBC Hgb Hct MCHC RDW MCV MCH Lymph % (Auto) [place] % (Auto) [place] # Eos # Lymph # (Auto) [place] # (Auto) Eos # (Auto) Seg Neutrophils % Seg Neuts % (Manual) Baso # (Auto) Lymphocytes % (Manual) Monocytes % (Manual) Eosinophils % (Manual) Basophils % (Manual) Seg Neutrophils # Seg Neutrophils # Man Lymphocytes # (Manual) Monocytes # (Manual) Eosinophils # (Manual) Nucleated RBC % Basophils # (Manual) PT INR APTT Heparin Anti-Xa Level ABG pH POC ABG pO2 ABG pO2 ABG HCO3 ABG O2 Saturation ABG Base Excess POC ABG pCO2 ABG Hemoglobin ABG Oxyhemoglobin ABG Sodium ABG Chloride ABG Glucose Oxyhemoglobin Sodium Potassium Chloride Carbon Dioxide BUN Creatinine Glucose POC Glucose 120 H 132 H 136 H Lactic Acid Calcium Phosphorus Magnesium AST ALT Lactate Dehydrogenase Total Bilirubin Direct Bilirubin CK-MB (CK-2) C-Reactive Protein NT-Pro-B Natriuret Pep Total Protein Albumin Arterial Blood Glucose Urine WBC (Auto) Urine Creatinine 03/01/20 03/01/20 03/02/20 17:36 23:16 05:12 WBC RBC Hgb Hct MCHC RDW MCV MCH Lymph % (Auto) [place] % (Auto) [place] # Eos # Lymph # (Auto) [place] # (Auto) Eos # (Auto) Seg Neutrophils % Seg Neuts % (Manual) Baso # (Auto) Lymphocytes % (Manual) Monocytes % (Manual) Eosinophils % (Manual) Basophils % (Manual) Seg Neutrophils # Seg Neutrophils # Man Lymphocytes # (Manual) Monocytes # (Manual) Eosinophils # (Manual) Nucleated RBC % Basophils # (Manual) PT INR APTT Heparin Anti-Xa Level ABG pH POC ABG pO2 ABG pO2 ABG HCO3 ABG O2 Saturation ABG Base Excess POC ABG pCO2 ABG Hemoglobin ABG Oxyhemoglobin ABG Sodium ABG Chloride ABG Glucose Oxyhemoglobin Sodium Potassium Chloride Carbon Dioxide BUN Creatinine Glucose POC Glucose 171 H 164 H 176 H Lactic Acid Calcium Phosphorus Magnesium AST ALT Lactate Dehydrogenase Total Bilirubin Direct Bilirubin CK-MB (CK-2) C-Reactive Protein NT-Pro-B Natriuret Pep Total Protein Albumin Arterial Blood Glucose Urine WBC (Auto) Urine Creatinine 03/02/20 03/02/20 03/03/20 11:42 18:01 00:06 WBC RBC Hgb Hct MCHC RDW MCV MCH Lymph % (Auto) [place] % (Auto) [place] # Eos # Lymph # (Auto) [place] # (Auto) Eos # (Auto) Seg Neutrophils % Seg Neuts % (Manual) Baso # (Auto) Lymphocytes % (Manual) Monocytes % (Manual) Eosinophils % (Manual) Basophils % (Manual) Seg Neutrophils # Seg Neutrophils # Man Lymphocytes # (Manual) Monocytes # (Manual) Eosinophils # (Manual) Nucleated RBC % Basophils # (Manual) PT INR APTT Heparin Anti-Xa Level ABG pH POC ABG pO2 ABG pO2 ABG HCO3 ABG O2 Saturation ABG Base Excess POC ABG pCO2 ABG Hemoglobin ABG Oxyhemoglobin ABG Sodium ABG Chloride ABG Glucose Oxyhemoglobin Sodium Potassium Chloride Carbon Dioxide BUN Creatinine Glucose POC Glucose 150 H 156 H 156 H Lactic Acid Calcium Phosphorus Magnesium AST ALT Lactate Dehydrogenase Total Bilirubin Direct Bilirubin CK-MB (CK-2) C-Reactive Protein NT-Pro-B Natriuret Pep Total Protein Albumin Arterial Blood Glucose Urine WBC (Auto) Urine Creatinine 03/03/20 03/03/20 03/03/20 03:31 11:20 16:55 WBC RBC Hgb Hct MCHC RDW MCV MCH Lymph % (Auto) [place] % (Auto) [place] # Eos # Lymph # (Auto) [place] # (Auto) Eos # (Auto) Seg Neutrophils % Seg Neuts % (Manual) Baso # (Auto) Lymphocytes % (Manual) Monocytes % (Manual) Eosinophils % (Manual) Basophils % (Manual) Seg Neutrophils # Seg Neutrophils # Man Lymphocytes # (Manual) Monocytes # (Manual) Eosinophils # (Manual) Nucleated RBC % Basophils # (Manual) PT INR APTT Heparin Anti-Xa Level ABG pH POC ABG pO2 ABG pO2 ABG HCO3 ABG O2 Saturation ABG Base Excess POC ABG pCO2 ABG Hemoglobin ABG Oxyhemoglobin ABG Sodium ABG Chloride ABG Glucose Oxyhemoglobin Sodium Potassium Chloride Carbon Dioxide BUN Creatinine Glucose POC Glucose 164 H 125 H 211 H Lactic Acid Calcium Phosphorus Magnesium AST ALT Lactate Dehydrogenase Total Bilirubin Direct Bilirubin CK-MB (CK-2) C-Reactive Protein NT-Pro-B Natriuret Pep Total Protein Albumin Arterial Blood Glucose Urine WBC (Auto) Urine Creatinine 12/02/1103/04/20 03/04/20 00:29 05:20 12:09 WBC RBC Hgb Hct MCHC RDW MCV MCH Lymph % (Auto) [place] % (Auto) [place] # Eos # Lymph # (Auto) [place] # (Auto) Eos # (Auto) Seg Neutrophils % Seg Neuts % (Manual) Baso # (Auto) Lymphocytes % (Manual) Monocytes % (Manual) Eosinophils % (Manual) Basophils % (Manual) Seg Neutrophils # Seg Neutrophils # Man Lymphocytes # (Manual) Monocytes # (Manual) Eosinophils # (Manual) Nucleated RBC % Basophils # (Manual) PT INR APTT Heparin Anti-Xa Level ABG pH POC ABG pO2 ABG pO2 ABG HCO3 ABG O2 Saturation ABG Base Excess POC ABG pCO2 ABG Hemoglobin ABG Oxyhemoglobin ABG Sodium ABG Chloride ABG Glucose Oxyhemoglobin Sodium Potassium Chloride Carbon Dioxide BUN Creatinine Glucose POC Glucose 169 H 154 H 197 H Lactic Acid Calcium Phosphorus Magnesium AST ALT Lactate Dehydrogenase Total Bilirubin Direct Bilirubin CK-MB (CK-2) C-Reactive Protein NT-Pro-B Natriuret Pep Total Protein Albumin Arterial Blood Glucose Urine WBC (Auto) Urine Creatinine 03/04/20 03/04/20 03/04/20 18:00 20:38 20:38 WBC RBC Hgb 10.1 L Hct 32.7 L MCHC 31 L RDW 24.7 H MCV 79 L MCH 24 L Lymph % (Auto) [place] % (Auto) 8.9 H [place] # Eos # Lymph # (Auto) [place] # (Auto) Eos # (Auto) Seg Neutrophils % Seg Neuts % (Manual) Baso # (Auto) Lymphocytes % (Manual) Monocytes % (Manual) Eosinophils % (Manual) Basophils % (Manual) Seg Neutrophils # Seg Neutrophils # Man Lymphocytes # (Manual) Monocytes # (Manual) Eosinophils # (Manual) Nucleated RBC % Basophils # (Manual) PT INR APTT Heparin Anti-Xa Level ABG pH POC ABG pO2 ABG pO2 ABG HCO3 ABG O2 Saturation ABG Base Excess POC ABG pCO2 ABG Hemoglobin ABG Oxyhemoglobin ABG Sodium ABG Chloride ABG Glucose Oxyhemoglobin Sodium 136 L Potassium Chloride Carbon Dioxide BUN 25 H Creatinine 0.5 L Glucose 148 H POC Glucose 146 H Lactic Acid Calcium Phosphorus Magnesium AST ALT Lactate Dehydrogenase Total Bilirubin Direct Bilirubin CK-MB (CK-2) C-Reactive Protein NT-Pro-B Natriuret Pep Total Protein Albumin Arterial Blood Glucose Urine WBC (Auto) Urine Creatinine 03/04/20 03/05/20 03/05/20 23:17 05:44 11:32 WBC RBC Hgb Hct MCHC RDW MCV MCH Lymph % (Auto) [place] % (Auto) [place] # Eos # Lymph # (Auto) [place] # (Auto) Eos # (Auto) Seg Neutrophils % Seg Neuts % (Manual) Baso # (Auto) Lymphocytes % (Manual) Monocytes % (Manual) Eosinophils % (Manual) Basophils % (Manual) Seg Neutrophils # Seg Neutrophils # Man Lymphocytes # (Manual) Monocytes # (Manual) Eosinophils # (Manual) Nucleated RBC % Basophils # (Manual) PT INR APTT Heparin Anti-Xa Level ABG pH POC ABG pO2 ABG pO2 ABG HCO3 ABG O2 Saturation ABG Base Excess POC ABG pCO2 ABG Hemoglobin ABG Oxyhemoglobin ABG Sodium ABG Chloride ABG Glucose Oxyhemoglobin Sodium Potassium Chloride Carbon Dioxide BUN Creatinine Glucose POC Glucose 139 H 155 H 124 H Lactic Acid Calcium Phosphorus Magnesium AST ALT Lactate Dehydrogenase Total Bilirubin Direct Bilirubin CK-MB (CK-2) C-Reactive Protein NT-Pro-B Natriuret Pep Total Protein Albumin Arterial Blood Glucose Urine WBC (Auto) Urine Creatinine 03/05/20 03/05/20 03/06/20 17:45 23:18 12:16 WBC RBC Hgb Hct MCHC RDW MCV MCH Lymph % (Auto) [place] % (Auto) [place] # Eos # Lymph # (Auto) [place] # (Auto) Eos # (Auto) Seg Neutrophils % Seg Neuts % (Manual) Baso # (Auto) Lymphocytes % (Manual) Monocytes % (Manual) Eosinophils % (Manual) Basophils % (Manual) Seg Neutrophils # Seg Neutrophils # Man Lymphocytes # (Manual) Monocytes # (Manual) Eosinophils # (Manual) Nucleated RBC % Basophils # (Manual) PT INR APTT Heparin Anti-Xa Level ABG pH POC ABG pO2 ABG pO2 ABG HCO3 ABG O2 Saturation ABG Base Excess POC ABG pCO2 ABG Hemoglobin ABG Oxyhemoglobin ABG Sodium ABG Chloride ABG Glucose Oxyhemoglobin Sodium Potassium Chloride Carbon Dioxide BUN Creatinine Glucose POC Glucose 171 H 114 H 155 H Lactic Acid Calcium Phosphorus Magnesium AST ALT Lactate Dehydrogenase Total Bilirubin Direct Bilirubin CK-MB (CK-2) C-Reactive Protein NT-Pro-B Natriuret Pep Total Protein Albumin Arterial Blood Glucose Urine WBC (Auto) Urine Creatinine 03/06/20 03/06/20 03/07/20 17:27 23:48 06:02 WBC RBC Hgb Hct MCHC RDW MCV MCH Lymph % (Auto) [place] % (Auto) [place] # Eos # Lymph # (Auto) [place] # (Auto) Eos # (Auto) Seg Neutrophils % Seg Neuts % (Manual) Baso # (Auto) Lymphocytes % (Manual) Monocytes % (Manual) Eosinophils % (Manual) Basophils % (Manual) Seg Neutrophils # Seg Neutrophils # Man Lymphocytes # (Manual) Monocytes # (Manual) Eosinophils # (Manual) Nucleated RBC % Basophils # (Manual) PT INR APTT Heparin Anti-Xa Level ABG pH POC ABG pO2 ABG pO2 ABG HCO3 ABG O2 Saturation ABG Base Excess POC ABG pCO2 ABG Hemoglobin ABG Oxyhemoglobin ABG Sodium ABG Chloride ABG Glucose Oxyhemoglobin Sodium Potassium Chloride Carbon Dioxide BUN Creatinine Glucose POC Glucose 116 H 142 H 161 H Lactic Acid Calcium Phosphorus Magnesium AST ALT Lactate Dehydrogenase Total Bilirubin Direct Bilirubin CK-MB (CK-2) C-Reactive Protein NT-Pro-B Natriuret Pep Total Protein Albumin Arterial Blood Glucose Urine WBC (Auto) Urine Creatinine 03/07/20 03/08/20 03/08/20 11:36 05:18 11:51 WBC RBC Hgb Hct MCHC RDW MCV MCH Lymph % (Auto) [place] % (Auto) [place] # Eos # Lymph # (Auto) [place] # (Auto) Eos # (Auto) Seg Neutrophils % Seg Neuts % (Manual) Baso # (Auto) Lymphocytes % (Manual) Monocytes % (Manual) Eosinophils % (Manual) Basophils % (Manual) Seg Neutrophils # Seg Neutrophils # Man Lymphocytes # (Manual) Monocytes # (Manual) Eosinophils # (Manual) Nucleated RBC % Basophils # (Manual) PT INR APTT Heparin Anti-Xa Level ABG pH POC ABG pO2 ABG pO2 ABG HCO3 ABG O2 Saturation ABG Base Excess POC ABG pCO2 ABG Hemoglobin ABG Oxyhemoglobin ABG Sodium ABG Chloride ABG Glucose Oxyhemoglobin Sodium Potassium Chloride Carbon Dioxide BUN Creatinine Glucose POC Glucose 127 H 142 H 135 H Lactic Acid Calcium Phosphorus Magnesium AST ALT Lactate Dehydrogenase Total Bilirubin Direct Bilirubin CK-MB (CK-2) C-Reactive Protein NT-Pro-B Natriuret Pep Total Protein Albumin Arterial Blood Glucose Urine WBC (Auto) Urine Creatinine 03/08/20 03/08/20 03/09/20 18:14 23:45 05:36 WBC RBC Hgb Hct MCHC RDW MCV MCH Lymph % (Auto) [place] % (Auto) [place] # Eos # Lymph # (Auto) [place] # (Auto) Eos # (Auto) Seg Neutrophils % Seg Neuts % (Manual) Baso # (Auto) Lymphocytes % (Manual) Monocytes % (Manual) Eosinophils % (Manual) Basophils % (Manual) Seg Neutrophils # Seg Neutrophils # Man Lymphocytes # (Manual) Monocytes # (Manual) Eosinophils # (Manual) Nucleated RBC % Basophils # (Manual) PT INR APTT Heparin Anti-Xa Level ABG pH POC ABG pO2 ABG pO2 ABG HCO3 ABG O2 Saturation ABG Base Excess POC ABG pCO2 ABG Hemoglobin ABG Oxyhemoglobin ABG Sodium ABG Chloride ABG Glucose Oxyhemoglobin Sodium Potassium Chloride Carbon Dioxide BUN Creatinine Glucose POC Glucose 125 H 143 H 158 H Lactic Acid Calcium Phosphorus Magnesium AST ALT Lactate Dehydrogenase Total Bilirubin Direct Bilirubin CK-MB (CK-2) C-Reactive Protein NT-Pro-B Natriuret Pep Total Protein Albumin Arterial Blood Glucose Urine WBC (Auto) Urine Creatinine 03/09/20 03/09/20 03/09/20 06:32 06:32 11:34 WBC RBC Hgb 9.8 L Hct 31.6 L MCHC 31 L RDW 23.1 H MCV 80 L MCH 25 L Lymph % (Auto) 35.1 H [place] % (Auto) 11.4 H [place] # Eos # Lymph # (Auto) [place] # (Auto) Eos # (Auto) Seg Neutrophils % Seg Neuts % (Manual) Baso # (Auto) Lymphocytes % (Manual) Monocytes % (Manual) Eosinophils % (Manual) Basophils % (Manual) Seg Neutrophils # Seg Neutrophils # Man Lymphocytes # (Manual) Monocytes # (Manual) Eosinophils # (Manual) Nucleated RBC % Basophils # (Manual) PT INR APTT Heparin Anti-Xa Level ABG pH POC ABG pO2 ABG pO2 ABG HCO3 ABG O2 Saturation ABG Base Excess POC ABG pCO2 ABG Hemoglobin ABG Oxyhemoglobin ABG Sodium ABG Chloride ABG Glucose Oxyhemoglobin Sodium 136 L Potassium Chloride Carbon Dioxide BUN 25 H Creatinine 0.6 L Glucose 170 H POC Glucose 140 H Lactic Acid Calcium Phosphorus Magnesium AST ALT Lactate Dehydrogenase Total Bilirubin Direct Bilirubin CK-MB (CK-2) C-Reactive Protein NT-Pro-B Natriuret Pep Total Protein Albumin Arterial Blood Glucose Urine WBC (Auto) Urine Creatinine 03/09/20 03/09/20 03/10/20 18:10 23:11 05:41 WBC RBC Hgb Hct MCHC RDW MCV MCH Lymph % (Auto) [place] % (Auto) [place] # Eos # Lymph # (Auto) [place] # (Auto) Eos # (Auto) Seg Neutrophils % Seg Neuts % (Manual) Baso # (Auto) Lymphocytes % (Manual) Monocytes % (Manual) Eosinophils % (Manual) Basophils % (Manual) Seg Neutrophils # Seg Neutrophils # Man Lymphocytes # (Manual) Monocytes # (Manual) Eosinophils # (Manual) Nucleated RBC % Basophils # (Manual) PT INR APTT Heparin Anti-Xa Level ABG pH POC ABG pO2 ABG pO2 ABG HCO3 ABG O2 Saturation ABG Base Excess POC ABG pCO2 ABG Hemoglobin ABG Oxyhemoglobin ABG Sodium ABG Chloride ABG Glucose Oxyhemoglobin Sodium Potassium Chloride Carbon Dioxide BUN Creatinine Glucose POC Glucose 153 H 111 H 138 H Lactic Acid Calcium Phosphorus Magnesium AST ALT Lactate Dehydrogenase Total Bilirubin Direct Bilirubin CK-MB (CK-2) C-Reactive Protein NT-Pro-B Natriuret Pep Total Protein Albumin Arterial Blood Glucose Urine WBC (Auto) Urine Creatinine 03/10/20 03/10/20 03/10/20 11:15 17:58 23:36 WBC RBC Hgb Hct MCHC RDW MCV MCH Lymph % (Auto) [place] % (Auto) [place] # Eos # Lymph # (Auto) [place] # (Auto) Eos # (Auto) Seg Neutrophils % Seg Neuts % (Manual) Baso # (Auto) Lymphocytes % (Manual) Monocytes % (Manual) Eosinophils % (Manual) Basophils % (Manual) Seg Neutrophils # Seg Neutrophils # Man Lymphocytes # (Manual) Monocytes # (Manual) Eosinophils # (Manual) Nucleated RBC % Basophils # (Manual) PT INR APTT Heparin Anti-Xa Level ABG pH POC ABG pO2 ABG pO2 ABG HCO3 ABG O2 Saturation ABG Base Excess POC ABG pCO2 ABG Hemoglobin ABG Oxyhemoglobin ABG Sodium ABG Chloride ABG Glucose Oxyhemoglobin Sodium Potassium Chloride Carbon Dioxide BUN Creatinine Glucose POC Glucose 141 H 149 H 148 H Lactic Acid Calcium Phosphorus Magnesium AST ALT Lactate Dehydrogenase Total Bilirubin Direct Bilirubin CK-MB (CK-2) C-Reactive Protein NT-Pro-B Natriuret Pep Total Protein Albumin Arterial Blood Glucose Urine WBC (Auto) Urine Creatinine 03/11/20 03/11/20 03/12/20 05:55 17:43 04:45 WBC RBC Hgb Hct MCHC RDW MCV MCH Lymph % (Auto) [place] % (Auto) [place] # Eos # Lymph # (Auto) [place] # (Auto) Eos # (Auto) Seg Neutrophils % Seg Neuts % (Manual) Baso # (Auto) Lymphocytes % (Manual) Monocytes % (Manual) Eosinophils % (Manual) Basophils % (Manual) Seg Neutrophils # Seg Neutrophils # Man Lymphocytes # (Manual) Monocytes # (Manual) Eosinophils # (Manual) Nucleated RBC % Basophils # (Manual) PT INR APTT Heparin Anti-Xa Level ABG pH 7.454 H POC ABG pO2 69.2 L ABG pO2 ABG HCO3 ABG O2 Saturation ABG Base Excess POC ABG pCO2 ABG Hemoglobin 11.2 L ABG Oxyhemoglobin ABG Sodium 134.7 L ABG Chloride ABG Glucose 151 H Oxyhemoglobin Sodium Potassium Chloride Carbon Dioxide BUN Creatinine Glucose POC Glucose 181 H 107 H Lactic Acid Calcium Phosphorus Magnesium AST ALT Lactate Dehydrogenase Total Bilirubin Direct Bilirubin CK-MB (CK-2) C-Reactive Protein NT-Pro-B Natriuret Pep Total Protein Albumin Arterial Blood Glucose 151 H Urine WBC (Auto) Urine Creatinine 03/12/20 03/12/20 03/12/20 05:36 11:36 17:40 WBC RBC Hgb Hct MCHC RDW MCV MCH Lymph % (Auto) [place] % (Auto) [place] # Eos # Lymph # (Auto) [place] # (Auto) Eos # (Auto) Seg Neutrophils % Seg Neuts % (Manual) Baso # (Auto) Lymphocytes % (Manual) Monocytes % (Manual) Eosinophils % (Manual) Basophils % (Manual) Seg Neutrophils # Seg Neutrophils # Man Lymphocytes # (Manual) Monocytes # (Manual) Eosinophils # (Manual) Nucleated RBC % Basophils # (Manual) PT INR APTT Heparin Anti-Xa Level ABG pH POC ABG pO2 ABG pO2 ABG HCO3 ABG O2 Saturation ABG Base Excess POC ABG pCO2 ABG Hemoglobin ABG Oxyhemoglobin ABG Sodium ABG Chloride ABG Glucose Oxyhemoglobin Sodium Potassium Chloride Carbon Dioxide BUN Creatinine Glucose POC Glucose 137 H 122 H 116 H Lactic Acid Calcium Phosphorus Magnesium AST ALT Lactate Dehydrogenase Total Bilirubin Direct Bilirubin CK-MB (CK-2) C-Reactive Protein NT-Pro-B Natriuret Pep Total Protein Albumin Arterial Blood Glucose Urine WBC (Auto) Urine Creatinine 03/12/20 03/13/20 03/13/20 23:17 05:47 11:35 WBC RBC Hgb Hct MCHC RDW MCV MCH Lymph % (Auto) [place] % (Auto) [place] # Eos # Lymph # (Auto) [place] # (Auto) Eos # (Auto) Seg Neutrophils % Seg Neuts % (Manual) Baso # (Auto) Lymphocytes % (Manual) Monocytes % (Manual) Eosinophils % (Manual) Basophils % (Manual) Seg Neutrophils # Seg Neutrophils # Man Lymphocytes # (Manual) Monocytes # (Manual) Eosinophils # (Manual) Nucleated RBC % Basophils # (Manual) PT INR APTT Heparin Anti-Xa Level ABG pH POC ABG pO2 ABG pO2 ABG HCO3 ABG O2 Saturation ABG Base Excess POC ABG pCO2 ABG Hemoglobin ABG Oxyhemoglobin ABG Sodium ABG Chloride ABG Glucose Oxyhemoglobin Sodium Potassium Chloride Carbon Dioxide BUN Creatinine Glucose POC Glucose 118 H 142 H 146 H Lactic Acid Calcium Phosphorus Magnesium AST ALT Lactate Dehydrogenase Total Bilirubin Direct Bilirubin CK-MB (CK-2) C-Reactive Protein NT-Pro-B Natriuret Pep Total Protein Albumin Arterial Blood Glucose Urine WBC (Auto) Urine Creatinine 03/13/20 03/13/20 03/14/20 17:25 23:27 05:04 WBC RBC Hgb Hct MCHC RDW MCV MCH Lymph % (Auto) [place] % (Auto) [place] # Eos # Lymph # (Auto) [place] # (Auto) Eos # (Auto) Seg Neutrophils % Seg Neuts % (Manual) Baso # (Auto) Lymphocytes % (Manual) Monocytes % (Manual) Eosinophils % (Manual) Basophils % (Manual) Seg Neutrophils # Seg Neutrophils # Man Lymphocytes # (Manual) Monocytes # (Manual) Eosinophils # (Manual) Nucleated RBC % Basophils # (Manual) PT INR APTT Heparin Anti-Xa Level ABG pH POC ABG pO2 ABG pO2 ABG HCO3 ABG O2 Saturation ABG Base Excess POC ABG pCO2 ABG Hemoglobin ABG Oxyhemoglobin ABG Sodium ABG Chloride ABG Glucose Oxyhemoglobin Sodium Potassium Chloride Carbon Dioxide BUN Creatinine Glucose POC Glucose 138 H 160 H 159 H Lactic Acid Calcium Phosphorus Magnesium AST ALT Lactate Dehydrogenase Total Bilirubin Direct Bilirubin CK-MB (CK-2) C-Reactive Protein NT-Pro-B Natriuret Pep Total Protein Albumin Arterial Blood Glucose Urine WBC (Auto) Urine Creatinine 03/14/20 03/14/20 03/15/20 11:19 16:18 00:18 WBC RBC Hgb Hct MCHC RDW MCV MCH Lymph % (Auto) [place] % (Auto) [place] # Eos # Lymph # (Auto) [place] # (Auto) Eos # (Auto) Seg Neutrophils % Seg Neuts % (Manual) Baso # (Auto) Lymphocytes % (Manual) Monocytes % (Manual) Eosinophils % (Manual) Basophils % (Manual) Seg Neutrophils # Seg Neutrophils # Man Lymphocytes # (Manual) Monocytes # (Manual) Eosinophils # (Manual) Nucleated RBC % Basophils # (Manual) PT INR APTT Heparin Anti-Xa Level ABG pH POC ABG pO2 ABG pO2 ABG HCO3 ABG O2 Saturation ABG Base Excess POC ABG pCO2 ABG Hemoglobin ABG Oxyhemoglobin ABG Sodium ABG Chloride ABG Glucose Oxyhemoglobin Sodium Potassium Chloride Carbon Dioxide BUN Creatinine Glucose POC Glucose 130 H 170 H 125 H Lactic Acid Calcium Phosphorus Magnesium AST ALT Lactate Dehydrogenase Total Bilirubin Direct Bilirubin CK-MB (CK-2) C-Reactive Protein NT-Pro-B Natriuret Pep Total Protein Albumin Arterial Blood Glucose Urine WBC (Auto) Urine Creatinine 03/15/20 03/15/20 03/15/20 04:05 04:05 05:36 WBC RBC Hgb 10.0 L Hct 31.6 L MCHC RDW 22.4 H MCV 77 L MCH 24 L Lymph % (Auto) 36.2 H [place] % (Auto) 9.4 H [place] # Eos # Lymph # (Auto) [place] # (Auto) Eos # (Auto) Seg Neutrophils % Seg Neuts % (Manual) Baso # (Auto) Lymphocytes % (Manual) Monocytes % (Manual) Eosinophils % (Manual) Basophils % (Manual) Seg Neutrophils # Seg Neutrophils # Man Lymphocytes # (Manual) Monocytes # (Manual) Eosinophils # (Manual) Nucleated RBC % Basophils # (Manual) PT INR APTT Heparin Anti-Xa Level ABG pH POC ABG pO2 ABG pO2 ABG HCO3 ABG O2 Saturation ABG Base Excess POC ABG pCO2 ABG Hemoglobin ABG Oxyhemoglobin ABG Sodium ABG Chloride ABG Glucose Oxyhemoglobin Sodium Potassium Chloride Carbon Dioxide 32 H BUN Creatinine 0.5 L Glucose 141 H POC Glucose 130 H Lactic Acid Calcium Phosphorus Magnesium AST ALT Lactate Dehydrogenase Total Bilirubin Direct Bilirubin CK-MB (CK-2) C-Reactive Protein NT-Pro-B Natriuret Pep Total Protein Albumin Arterial Blood Glucose Urine WBC (Auto) Urine Creatinine Allied health notes reviewed: RT
--- NOTE | 2020-03-15 10:17 | Progress Note ---
Assessment and Plan Assessment and plan: --Ischemic cardiomyopathy Cardiology is following, status post cardiac catheterization on 01/22/2020; Co ronary artery disease status post PCI and stent to the LAD Continue current cardiac medications --Acute on chronic hypoxemic respiratory failure; Patient has tracheostomy on vent Continue nebulizers, , trach care Wean off ventilator as tolerated Pulmonary critical following --Acute exacerbation of COPD; Patient is currently on ventilatory support Continue nebulizers --Left lower lobe PE; Continue Eliquis, ventilatory support --Acute right lower extremity DVT; Patient is on Eliquis --Bilateral multifocal pneumonia/community-acquired Completed antibiotics, improved --Severe sepsis/bilateral pneumonia: Completed antibiotics COVID-19 test; 11/24/2019; negative 11/26/2019; negative 12/29/2019: Negative --Paroxysmal atrial fibrillation; Now rate controlled, Stable on amiodarone and Eliquis --Acute on chronic combined systolic and diastolic congestive heart failure Ischemic cardiomyopathy left ventricular ejection fraction 40 to 45% --H/o CAD [[facility] 12/2018 in-stent restenosis] Patient is stable on current cardiac medications --Hypertensive emergency; present on admission Reasonable blood pressures, continue current antihypertensives As needed medications --History of alcohol abuse/alcohol withdrawal; Was on CIWA protocol, now stable --Oropharyngeal dysphagia; status post PEG placement Continue PEG feeds per protocol --History of partial small bowel obstruction; resolved Surgery evaluated. --Obesity; BMI 34.7 Patient needs weight reduction when medically stable --Severe protein calorie malnutrition/hypoalbuminemia Nutrition supplements, dietitian following, PEG feeds --DVT prophylaxis;Eliquis --Full CODE STATUS 01/05; Pt stable. NGT output 650cc over 24 hours, bilious. No f/c, WBC within normal limits. cont NG suction and cont to hold TF 01/06: Abs series - mild improvement in small bowel distension in mid abdomen, normal gas/stool pattern in colon. NGT in duodenum. Continue to hold tube feeding, maintain NG tube with low intermittent suction. Patient's was updated by phone. Continue to provide supportive care and monitor clinically. 01/07: +BMs today and NGT/PEG output appears more gastric today. Plan to clamp NGT, if tolerates start TF from tomorrow. cont supportive care. 01/08; Gastric output decreased over last 24 hours. NGT has been clamped x 24 hours. plan to dc NGT and to start TTF via PEG - vital HF @10cc/hr 01/09: clinically stable, tolerating TF. monitor BMP, wean off from vent as tolerated clinically stable, on TF. wean off vent as tolerated 01/11: wean off from vent, cont to monitor, on TF 01/12: wean off from vent, cont to monitor, on TF. need placement - unfunded 01/13; remains on ventilatory support, unable to wean, DC planning possible LTAC, unfunded 01/14; patient of ventilatory support, T-piece tracheostomy on oxygen, LTAC placement per case management 01/16; tracheostomy, patient on full ventilatory support, wean off vent support as tolerated, pending LTAC placement, social financial issues 01/17; awaiting LTAC placement, insurance and financial issues 01/18; patient tracheostomy remains on ventilatory support 01/19; wean off ventilator as tolerated 01/20; remains on ventilatory support, patient complains of intermittent chest pain, cardiology recommend left heart catheterization tomorrow 01/22/2020. Patient for left heart catheterization per cardiology. Patient remains on AC mode ventilation rate 12, tidal volume 450, FiO2 30% and PEEP of 6. Continue tracheostomy care, airway management and secretion control. 01/23/2020. Cardiac catheterization completed yesterday revealed widely patent previous LAD stent with mild nonobstructive atherosclerosis of the right mid coronary artery and rest of the coronary system was without significant atherosclerosis. The left ventricle ejection fraction was mildly impaired at 40 to 45%. There was some hypokinesis of the basal inferior wall suggestive of previous or recent infarct. Continue GDMT for coronary artery disease including beta blockers, topical nitrates, statin and Plavix. Continue Eliquis for paroxysmal atrial fibrillation and PE. Continue diuresis with Lasix and follow electrolytes closely. Continue Robinul and scopolamine for secretion control and daily SBT per pulmonary. Also, continue bronchodilators and routine trach care/airway management. T-piece trials per pulmonary as tolerated. 01/24/2020. Recent cardiac catheterization has documented widely patent left anterior descending artery stent with minimal nonobstructive diffuse coronary artery disease in the rest of the coronary arteries. Evidence of ischemic cardiomyopathy with inferior wall hypokinesis. Continue with guideline directed medical therapy. Continue Robinul and scopolamine for secretion control and daily SBT per pulmonary. Continue bronchodilators and routine trach care/airway management. T-piece trials per pulmonary as tolerated. 01/25/2020. Continue with guideline directed medical therapy for systolic heart failure. Cardiac catheterization revealed evidence of ischemic cardiomyopathy with inferior wall hypokinesis (EF 40-45%). Patient currently on T-piece with oxygen 10 L/min FiO2 40%. Continue Robinul and scopolamine for secretion control. Continue bronchodilators and routine trach care/airway management. 02/03: Mental status more improved, agree with Reglan will change to IV scheduled for two days, no new vomiting. Pseudomonas A in Sputum. 02/04: Clinical improving, amiodarone discontinued due to LFTs, continue Metoprolol.d/w GI, started on Golytely to clear impaction. Started on dialy Miralax. 02/05: Continue supportive care. Noted bowel movement, continue bowel regimen 02/06: Cardiology input noted beta-hebert increased for better suppression of atrial fibrillation. Continue to monitor, no other evidence of nausea vomiting noted. Discussed with respiratory therapist will be continued on weaning protocol with pressure support today. 02/07: Patient successfully weaned off the ventilator, No new complaints, c ontinue monitoring, BM noted, Discussed with pulmonary, 02/08; tracheostomy on T-piece, patient is more alert and awake today 02/09; clinically no change, tracheostomy on vent 02/10; tracheostomy on vent, full CODE STATUS, poor prognosis, 02/11; clinically no change, remains on ventilatory support, full CODE STATUS, discussed with spouse Ms. Paulette Araiza extensively today 02/12. Patient resting comfortably no change on vent with tracheostomy. Still unable to wean. Some increased crackles today. 02/13: Still unable to wean from the vent. Overall prognosis remains extremely poor. 02/14; remains critically ill, tracheostomy on vent, unable to wean, poor prognosis, full CODE STATUS 02/15; patient is more alert and awake today, chronic tracheostomy on T-piece, continue current management DC planning per case management. Disposition very difficult due to lack of resources and insurance 02/17/2020. Patient remains on mechanical ventilation and tolerating PSV trials. Patient currently with PSV 10/6 at FiO2 of 30%. 02/18/2020. Patient currently on PSV 10/6 with FiO2 of 40%. 40% T-piece trial was attempted but patient unable to tolerate due to saturations dropping into the 80s and heart rate in the 140s. Therefore, patient placed back on PSV. Continue anticoagulation with Eliquis. Continue secretion control with Robinul and scopolamine. Continue rate control with metoprolol and digoxin. 02/19/2020. Patient currently on PSV 10/6 with FiO2 of 30%. T-piece trial attempted yesterday but patient did not tolerate. Continue T-piece trials as tolerated. Continue anticoagulation with Eliquis. Continue secretion control with Robinul and scopolamine. Continue rate control with metoprolol and digoxin. Continue to follow with case management with regards to discharge pl anning. 02/20/2020. Patient continues to tolerate PSV 10/6. Continue rate control with metoprolol and digoxin. Amiodarone discontinued due to elevated liver transaminases. Eliquis for anticoagulation acute PE/DVT. 02/21/2020. Patient continues to tolerate PSV 10/6 at FiO2 of 30%. Continue ra te control with metoprolol and digoxin. Amiodarone discontinued due to elevated liver transaminases. Eliquis for anticoagulation acute PE/DVT. 02/22/2020. Patient continues to tolerate PSV 10/6 at FiO2 of 30%. Continue rate control with metoprolol and digoxin. Amiodarone discontinued due to el evated liver transaminases. Eliquis for anticoagulation acute PE/DVT. 02/22. Awake and alert on vent. Vitals stable. 02/23. Awake and alert on vent. Requests for ice. Vitals stable 02/24. Trach to vent. Continue rate control with metoprolol and digoxin. Amiodarone discontinued due to elevated liver transaminases. Eliquis for anticoagulation of acute PE/DVT. Transferred to [facility] 02/25. Seen in [facility]. Requests for ice. RN to provide a cube of ice. Vitals stable. 02/26. No change in medical condition. Slightly tachy this AM. Will monitor. 02/27. Cardiology started him on a beta hebert. Still on vent 02/28. Discharge planning as per disaster director. Still on vent. Tachycardia noted. 03/01/2020; patient is tachycardic, still on the vent. Discharge management as per disaster director. 03/02/2020; patient is on a vent and trach. Discharge is per disaster director. 03/03/2012; patient is on vent and trach patient is alert and oriented. 03/04/2020; patient is on vent and trach, patient is alert. 03/05/2020; patient is on vent and trach, patient is alert. 03/06/2020 tracheostomy on vent , patient is alert, possible LTAC placement 03/08/2020 remains on ventilatory support; wean off the vent, pending LTAC placement 03/09/2020; clinically no change, tracheostomy on ventilatory support, unable to wean, awaiting LTAC placement, social issues 03/10/2020; clinically no change; patient alert and awake; 03/11/2020; patient is more alert and awake asking for some water, remains on ventilatory support, awaiting LTAC placement 03/12/2020; clinically no change, tracheostomy on ventilatory support, unable to wean, awaiting LTAC placement 03/13 patient on vent via tracheostomy, alert and oriented and offers no complaints except some neck pain. Denies any chest pain or shortness of breath or palpitations. All interdisciplinary notes reviewed 03/14/2020. Patient currently on AC mode ventilation rate of 12 tidal volume 450 FiO2 30% and a PEEP of 6. Patient is s/p tracheostomy on ventilatory support awaiting LTAC placement. 03/15/2020. Patient remains on AC mode ventilation rate 12, tidal volume 450, FiO2 30% and PEEP of 6. Patient failed CPAP trials. Unfortunately, Patient is uninsured and his only d/c option is to return home with family. The high probability of a clinically significant, sudden or life threatening deterioration of the [Respiratory, cardiovascular & neurological] system(s) required my full and direct attention, intervention and personal management. The aggregate critical care time was [32] minutes without overlap. Time includes spent on [x] Data Review and interpretation [x] Patient assessment and monitoring of vital signs [x] Documentation [x] Medication orders and management History Interval history: Patient is a 64-year-old male with known history of hypertension, COPD, history of coronary artery disease, CHF with ejection fraction of 20 to 25% 2019 was admitted through emergency room with worsening shortness of breath Patient was found to be hypoxic and in respiratory distress. Patient was placed on CPAP in route to the hospital. Patient remained hypoxic on CPAP BiPAP ,subsequently was intubated. Patient also had bilateral multifocal pneumonia managed appropriately with antibiotics sputum cultures positive for Pseudomonas, ID treated with cefepime and Vanco. His hospital course became complicated with acute PE, DVT, paroxysmal atrial fib - placed on chronic anticoagulation. Patient was difficult to wean off, status post trach and PEG, remains on mechanical ventilation with trach tube. He then developed partial small bowel obstruction evaluated by general surgeon symptom improved with medical Mx, patient was briefly weaned off ventilatory support however, was in respiratory failure requiring full ventilatory support. Cardiac catheterization on 01/22/2020. Patient remains on mechanical ventilatory support. Patients still with elevated heart rate of Afib with RVR continue amiodarone and metoprolol. LVEF 40 to 45% on Eliquis FOR THE Acute PE/DVT. Partial SBO vs ileus- KUB is negative. Brief history; Patient is a 64-year-old male with known history of hypertension, COPD, history of coronary artery disease, CHF with ejection fraction of 20 to 25% 2019 was admitted through emergency room with worsening shortness of breath Patient was found to be hypoxic and in respiratory distress. Patient was placed on CPAP in route to the hospital. Patient remained hypoxic on CPAP BiPAP ,subsequently was intubated, vent dependent. Unable to wean subsequently had tracheostomy and PEG placement, patient also has acute PE DVT and paroxysmal atrial fibrillation on chronic anticoagulation. Patient is vent dependent, social issues, awaiting LTAC placement Hospitalist Physical - Constitutional Vitals: Temp Pulse Resp BP Pulse Ox 97.4 F L 107 H 19 94/72 100 03/15/20 08:00 03/15/20 09:19 03/15/20 09:00 03/15/20 09:19 03/15/20 09:00 General appearance: Present: no acute distress, well-nourished, other (Tracheostomy on vent) - EENT Eyes: Present: PERRL, EOM intact ENT: hearing intact, clear oral mucosa, dentition normal - Neck Neck: Present: supple, normal ROM - Respiratory Respiratory effort: normal Respiratory: bilateral: CTA - Cardiovascular Rhythm: regular Heart Sounds: Present: S1 & S2. Absent: gallop, rub - Extremities Extremities: no ischemia, No edema, Full ROM - Abdominal General gastrointestinal: soft, non-tender, non-distended, normal bowel sounds - Integumentary Integumentary: Present: clear, warm, dry - Neurologic Neurologic: CNII-XII intact, moves all extremities HEART Score - HEART Score Troponin: Troponin T < 0.010 ng/mL (0.00-0.029) 01/19/20 01:35 Results - Labs CBC & Chem 7: 03/15/20 04:05 03/15/20 04:05 Labs: Laboratory Last Values WBC 6.0 K/mm3 (4.5-11.0) 03/15/20 04:05 RBC 4.09 M/mm3 (3.65-5.03) 03/15/20 04:05 Hgb 10.0 gm/dl (11.8-15.2) L 03/15/20 04:05 Hct 31.6 % (35.5-45.6) L 03/15/20 04:05 MCV 77 fl (84-94) L 03/15/20 04:05 MCH 24 pg (28-32) L 03/15/20 04:05 MCHC 32 % (32-34) 03/15/20 04:05 RDW 22.4 % (13.2-15.2) H 03/15/20 04:05 Plt Count 205 K/mm3 (140-440) 03/15/20 04:05 Lymph % (Auto) 36.2 % (13.4-35.0) H 03/15/20 04:05 [place] % (Auto) 9.4 % (0.0-7.3) H 03/15/20 04:05 Eos % (Auto) 2.8 % (0.0-4.3) 03/15/20 04:05 Baso % (Auto) 0.6 % (0.0-1.8) 03/15/20 04:05 Lymph # (Auto) 2.2 K/mm3 (1.2-5.4) 03/15/20 04:05 [place] # (Auto) 0.6 K/mm3 (0.0-0.8) 03/15/20 04:05 Eos # (Auto) 0.2 K/mm3 (0.0-0.4) 03/15/20 04:05 Baso # (Auto) 0.0 K/mm3 (0.0-0.1) 03/15/20 04:05 Add Manual Diff Complete 02/15/20 06:59 Total Counted 100 02/15/20 06:59 Seg Neutrophils % 51.0 % (40.0-70.0) 03/15/20 04:05 Seg Neuts % (Manual) 58.0 % (40.0-70.0) 02/15/20 06:59 Band Neutrophils % 0 % 02/15/20 06:59 Lymphocytes % (Manual) 34.0 % (13.4-35.0) 02/15/20 06:59 Reactive Lymphs % (Man) 1.0 % 02/15/20 06:59 Monocytes % (Manual) 4.0 % (0.0-7.3) 02/15/20 06:59 Eosinophils % (Manual) 0 % (0.0-4.3) 02/15/20 06:59 Basophils % (Manual) 2.0 % (0.0-1.8) H 02/15/20 06:59 Metamyelocytes % 1.0 % 02/15/20 06:59 Myelocytes % 0 % 02/15/20 06:59 Promyelocytes % 0 % 02/15/20 06:59 Blast Cells % 0 % 02/15/20 06:59 Nucleated RBC % 1.0 % (0.0-0.9) H 02/15/20 06:59 Seg Neutrophils # 3.0 K/mm3 (1.8-7.7) 03/15/20 04:05 Seg Neutrophils # Man 5.9 K/mm3 (1.8-7.7) 02/15/20 06:59 Band Neutrophils # 0.0 K/mm3 02/15/20 06:59 Lymphocytes # (Manual) 3.5 K/mm3 (1.2-5.4) 02/15/20 06:59 Abs React Lymphs (Man) 0.1 K/mm3 02/15/20 06:59 Monocytes # (Manual) 0.4 K/mm3 (0.0-0.8) 02/15/20 06:59 Eosinophils # (Manual) 0.0 K/mm3 (0.0-0.4) 02/15/20 06:59 Basophils # (Manual) 0.2 K/mm3 (0.0-0.1) H 02/15/20 06:59 Metamyelocytes # 0.1 K/mm3 02/15/20 06:59 Myelocytes # 0.0 K/mm3 02/15/20 06:59 Promyelocytes # 0.0 K/mm3 02/15/20 06:59 Blast Cells # 0.0 K/mm3 02/15/20 06:59 WBC Morphology Not Reportable 02/15/20 06:59 Hypersegmented Neuts Not Reportable 02/15/20 06:59 Hyposegmented Neuts Not Reportable 02/15/20 06:59 Hypogranular Neuts Not Reportable 02/15/20 06:59 Smudge Cells Not Reportable 02/15/20 06:59 Toxic Granulation Not Reportable 02/15/20 06:59 Toxic Vacuolation Not Reportable 02/15/20 06:59 Dohle Bodies Not Reportable 02/15/20 06:59 Pelger-Huet Anomaly Not Reportable 02/15/20 06:59 Hector Rods Not Reportable 02/15/20 06:59 Platelet Estimate Consistent w auto 02/15/20 06:59 Clumped Platelets Not Reportable 02/15/20 06:59 Plt Clumps, EDTA Not Reportable 02/15/20 06:59 Large Platelets Not Reportable 02/15/20 06:59 Giant Platelets Not Reportable 02/15/20 06:59 Platelet Satelliting Not Reportable 02/15/20 06:59 Plt Morphology Comment Giant platelets 02/15/20 06:59 RBC Morphology Not Reportable 02/15/20 06:59 Dimorphic RBCs Not Reportable 02/15/20 06:59 Polychromasia Not Reportable 02/15/20 06:59 Hypochromasia 1+ 02/15/20 06:59 Poikilocytosis Few 02/15/20 06:59 Anisocytosis 1+ 02/15/20 06:59 Microcytosis Not Reportable 02/15/20 06:59 Macrocytosis Not Reportable 02/15/20 06:59 Spherocytes Not Reportable 02/15/20 06:59 Pappenheimer Bodies Not Reportable 02/15/20 06:59 Sickle Cells Not Reportable 02/15/20 06:59 Target Cells 1+ 02/15/20 06:59 Tear Drop Cells Few 02/15/20 06:59 Ovalocytes Not Reportable 02/15/20 06:59 Helmet Cells Not Reportable 02/15/20 06:59 [place] Bodies Not Reportable 02/15/20 06:59 [place] Rings Not Reportable 02/15/20 06:59 [place] Cells Not Reportable 02/15/20 06:59 Bite Cells Not Reportable 02/15/20 06:59 Crenated Cell Not Reportable 02/15/20 06:59 Elliptocytes Few 02/15/20 06:59 Acanthocytes (Spur) Not Reportable 02/15/20 06:59 Rouleaux Not Reportable 02/15/20 06:59 Hemoglobin C Crystals Not Reportable 02/15/20 06:59 Schistocytes Not Reportable 02/15/20 06:59 Malaria parasites Not Reportable 02/15/20 06:59 [place] Bodies Not Reportable 02/15/20 06:59 Hem Pathologist Commnt No 02/15/20 06:59 PT 27.0 Sec. (12.2-14.9) H 02/07/20 15:03 INR 2.46 (0.87-1.13) H 02/07/20 15:03 APTT 31.5 Sec. (24.2-36.6) 01/22/20 09:58 Heparin Anti-Xa Level 1.34 U.I./ml (0.3-0.7) H 01/22/20 04:45 ABG pH 7.454 (7.320-7.450) H 03/12/20 04:45 POC ABG pCO2 45.6 mmHg (32.0-48.0) 03/12/20 04:45 ABG pCO2 47.8 mm Hg 02/20/20 06:45 POC ABG pO2 69.2 mmHg (83-108) L 03/12/20 04:45 ABG pO2 88.7 mm Hg (80.0-90.0) 02/20/20 06:45 POC ABG HCO3 31.3 03/12/20 04:45 ABG HCO3 33.3 mmol/L (20.0-26.0) H 02/20/20 06:45 ABG O2 Saturation 97.2 % (95.0-99.0) 02/20/20 06:45 ABG O2 Content 13.3 (0.0-44) 02/20/20 06:45 POC ABG Base Excess 6.5 03/12/20 04:45 ABG Base Excess 8.4 mmol/L (-2.0-3.0) H 02/20/20 06:45 ABG Hemoglobin 11.2 (12.0-17.5) L 03/12/20 04:45 ABG Oxyhemoglobin 84 (94-98) L 12/22/19 03:22 ABG Carboxyhemoglobin 2.9 % (0.0-5.0) 02/20/20 06:45 ABG Methemoglobin 0.4 % (0.0-1.5) 02/20/20 06:45 ABG Sodium 134.7 mmol/L (136.0-145.0) L 03/12/20 04:45 ABG Potassium 3.9 mmol/L (3.40-4.50) 03/12/20 04:45 ABG Chloride 98.0 mmol/L (98-107) 03/12/20 04:45 ABG Glucose 151 mg/dL (65-95) H 03/12/20 04:45 Oxyhemoglobin 94.1 % (95.0-99.0) L 02/20/20 06:45 Carboxyhemoglobin 0.7 (0.5-1.5) 12/22/19 03:22 FiO2 30 03/12/20 04:45 Sodium 137 mmol/L (137-145) 03/15/20 04:05 Potassium 4.3 mmol/L (3.6-5.0) 03/15/20 04:05 Chloride 98.7 mmol/L (98-107) 03/15/20 04:05 Carbon Dioxide 32 mmol/L (22-30) H 03/15/20 04:05 Anion Gap 11 mmol/L 03/15/20 04:05 BUN 17 mg/dL (9-20) 03/15/20 04:05 Creatinine 0.5 mg/dL (0.8-1.3) L 03/15/20 04:05 Estimated GFR > 60 ml/min 03/15/20 04:05 BUN/Creatinine Ratio 34 % 03/15/20 04:05 Glucose 141 mg/dL (75-100) H 03/15/20 04:05 POC Glucose 130 mg/dL (70-105) H 03/15/20 05:36 Lactic Acid 1.60 mmol/L (0.7-2.0) 02/03/20 12:49 Calcium 9.0 mg/dL (8.4-10.2) 03/15/20 04:05 Ferritin 84.4 ng/mL (30.0-300.0) 11/24/19 04:53 Phosphorus 4.10 mg/dL (2.5-4.5) 01/31/20 19:24 Magnesium 2.40 mg/dL (1.7-2.3) H 02/10/20 07:40 Total Bilirubin 1.30 mg/dL (0.1-1.2) H 02/08/20 19:00 Direct Bilirubin 0.9 mg/dL (0-0.2) H 02/08/20 19:00 Indirect Bilirubin 0.4 mg/dL 02/08/20 19:00 Total Creatine Kinase 141 units/L (55-170) 11/24/19 02:53 CK-MB (CK-2) 4.3 ng/mL (0.0-4.0) H 11/24/19 02:53 AST 309 units/L (5-40) H 02/08/20 19:00 ALT 650 units/L (7-56) H 02/08/20 19:00 CK-MB (CK-2) Rel Index 3.0 (0-4) 11/24/19 02:53 Alkaline Phosphatase 109 units/L (35-129) 02/08/20 19:00 C-Reactive Protein 8.50 mg/dL (0.00-1.30) H 12/01/19 12:16 Ammonia 35.0 umol/L (25-60) 02/03/20 12:49 Lactate Dehydrogenase 228 units/L (91-180) H 12/19/19 04:45 Troponin T < 0.010 ng/mL (0.00-0.029) 01/19/20 01:35 NT-Pro-B Natriuret Pep 3866 pg/mL (0-900) H 01/01/20 10:40 Total Protein 6.2 g/dL (6.3-8.2) L 02/08/20 19:00 Albumin 2.7 g/dL (3.9-5) L 02/08/20 19:00 Albumin/Globulin Ratio 0.8 % 02/08/20 19:00 Procalcitonin 0.44 ng/mL (<0.15) 02/03/20 12:49 Arterial Blood Glucose 151 mg/dL (65-95) H 03/12/20 04:45 Arterial Blood Ionized Calcium 4.8 mg/dL (4.6-5.3) 03/12/20 04:45 Urine Color Cecy (Yellow) 02/26/20 07:50 Urine Turbidity Clear (Clear) 02/26/20 07:50 Urine pH 5.0 (5.0-7.0) 02/26/20 07:50 Ur Specific [place] 1.025 (1.003-1.030) 02/26/20 07:50 Urine Protein 30 mg/dl mg/dL (Negative) 02/26/20 07:50 Urine Glucose (UA) Neg mg/dL (Negative) 02/26/20 07:50 Urine Ketones Neg mg/dL (Negative) 02/26/20 07:50 Urine Blood Sm (Negative) 02/26/20 07:50 Urine Nitrite Neg (Negative) 02/26/20 07:50 Urine Bilirubin Neg (Negative) 02/26/20 07:50 Urine Urobilinogen 4.0 mg/dL (<2.0) 02/26/20 07:50 Ur Leukocyte Esterase Lg (Negative) 02/26/20 07:50 Urine WBC (Auto) > 182.0 /HPF (0.0-6.0) H 02/26/20 07:50 Urine RBC (Auto) 84.0 /HPF (0.0-6.0) 02/26/20 07:50 U Epithel Cells (Auto) 2.0 /HPF (0-13.0) 12/31/19 18:04 Urine Bacteria (Auto) 4+ /HPF (Negative) 02/26/20 07:50 Urine WBC Clumps 2+ /HPF 02/26/20 07:50 Urine Mucus 1+ /HPF 02/26/20 07:50 Urine Creatinine 57.4 mg/dL (0.1-20.0) H 01/31/20 Unknown Urine Sodium 59 mmol/L 01/31/20 Unknown Vancomycin Trough 14.2 ug/mL (5.0-20.0) 12/13/19 15:01 Coronavirus (PCR) Negative (Negative) 12/29/19 10:07 Hepatitis A IgM Ab Non-reactive (NonReactive) 02/05/20 06:37 Hep Bs Antigen Non-reactive (Negative) 02/05/20 06:37 Hep B Core IgM Ab Non-reactive (NonReactive) 02/05/20 06:37 Hepatitis C Antibody Non-reactive (NonReactive) 02/05/20 06:37 Blood Type O POSITIVE 01/21/20 13:00 Antibody Screen Negative 01/21/20 13:00 - Diagnostic Impressions Diagnostic Impressions: Echocardiogram 11/29/19 07:37 Transthoracic Echocardiogram Indication: CHF BP: 116/72 HR: 33 Conclusions *The study is technically limited due to poor acoustic windows. *Global left ventricular systolic function is normal. *The estimated ejection fraction is 50-55%. *Mild concentric left ventricular hypertrophy is observed. *There is trace of mitral regurgitation. *There is mild tricuspid regurgitation. Findings Procedure Info: The study quality is poor. The study is technically limited due to poor acoustic windows. The study is technically limited due to patient body habitus. Left Ventricle: The left ventricular chamber size is normal. Mild concentric left ventricular hypertrophy is observed. Global left ventricular systolic function is normal. The estimated ejection fraction is 50-55%. Left Atrium: The left atrial chamber size is normal. Right Ventricle: The right ventricular cavity size is normal. Right Atrium: The right atrial cavity size is normal. Aortic Valve: The aortic valve leaflets are moderately thickened. There is trace of aortic regurgitation. There is no evidence of aortic stenosis. Mitral Valve: The mitral valve leaflets are mildly thickened. There is trace of mitral regurgitation. There is no evidence of mitral stenosis. Tricuspid Valve: There is mild tricuspid regurgitation. No pulmonary hypertension is noted. Pulmonic Valve: There is trace pulmonic regurgitation. Pericardium: There is no pericardial effusion. Aorta: There is no dilatation of the aortic root. Venous: The inferior vena cava appears normal in size. Contrast: Definity was used to optimize study. Intravenous contrast was used to enhance endocardial border definition. Measurements Chambers 2D Name Value Normal Range Ao root diameter (2D) 3.4 cm (2 - 3.7) Aortic Valve Name Value Normal Range AV Vmax 0.98 m/sec - AV VTI 16.76 cm - AV peak gradient 3.83 mmHg - AV mean gradient 2.57 mmHg - LVOT diameter 3.11 cm - LVOT Vmax 0.68 m/sec - LVOT VTI 11.52 cm - LVOT peak gradient 1.84 mmHg - LVOT mean gradient 1.27 mmHg - SV LVOT 87.31 ml - MALOU (continuity Vmax) 5.24 cm2 - MALOU (continuity VTI) 5.21 cm2 - Tricuspid Valve Name Value Normal Range IVC diameter 2.24 cm (1.2 - 2.3) Hoffman/IV: Voiding Method Indwelling Catheter IV Catheter Type [Left INT / Saline Lock Antecubital] IV Catheter Type [Right INT / Saline Lock Forearm] IV Catheter Type [Right Hand] Peripheral IV IV Catheter Type [Right Upper INT / Saline Lock arm] IV Catheter Type [Left Upper Mid-line arm] IV Catheter Type [Left Forearm Peripheral IV ] IV Catheter Type [Left Hand] INT / Saline Lock IV Catheter Type [Left Wrist] INT / Saline Lock IV Catheter Type [Right Peripheral IV Antecubital] Active Medications - Current Medications Current Medications: Generic Name Dose Route Start Last Admin Trade Name Freq PRN Reason Stop Dose Admin Acetaminophen 650 mg 03/12/20 04:29 03/14/20 13:49 Acetaminophen 325 Mg/10.15 Ml Oral Liqd Unit Dose FEEDTUBE 650 mg Q6H PRN Administration Pain, Mild (1-3) Lipase/Protease/Amylase 1 each 01/09/20 12:01 03/07/20 12:56 Lipase 10,500/Protease 25,000/Amylase 43,750 (Units) Dr Lauren FEEDTUBE 1 each PRN PRN Administration For Clogged Feeding Tube Apixaban 5 mg 01/22/20 22:00 03/15/20 09:18 Eliquis PO 5 mg Q12HR CAR Administration Protocol Atorvastatin Calcium 40 mg 01/20/20 22:00 03/14/20 21:41 Lipitor PO 40 mg QHS CAR Administration Clopidogrel Bisulfate 75 mg 01/21/20 06:00 03/15/20 09:18 Plavix PO 75 mg QDAY CAR Administration Dextrose 50 ml 01/31/20 18:51 02/05/20 00:56 D50w (25gm) Syringe IV 50 ml Q30MIN PRN Administration Hypoglycemia Protocol Digoxin 0.125 mg 02/25/20 17:00 03/14/20 16:53 Lanoxin PO 0.125 mg DAILY@1700 CAR Administration Docusate Sodium 100 mg 02/22/20 10:00 03/15/20 09:18 Colace FEEDTUBE 100 mg BID CAR Administration Glycopyrrolate 2 mg 02/24/20 21:00 03/15/20 09:18 Glycopyrrolate PO 2 mg TID CAR Administration Haloperidol Lactate 5 mg 02/10/20 14:20 03/03/20 02:25 Haloperidol Lactate 5 Mg/1 Ml Inj IV 5 mg Q6H PRN Administration Agitation Hydrophilic Ointment 1 applic 01/17/20 15:26 02/24/20 23:20 Vaseline Lip Therapy TP 1 applic DIRECT PRN Administration Dry Lips Insulin Human Regular 0 unit 02/01/20 18:00 03/14/20 17:50 Humulin R SUB-Q 1 unit Q6H CAR Administration Protocol Lansoprazole 30 mg 02/05/20 16:00 03/15/20 09:18 Lansoprazole 30 Mg Solutab FEEDTUBE 30 mg QDAY CAR Administration Metoprolol Tartrate 5 mg 01/11/20 08:00 03/03/20 01:46 Metoprolol Tartrate 5 Mg/5 Ml Inj IV 5 mg Q6H PRN Administration SEE INSTRUCTIONS Metoprolol Tartrate 12.5 mg 02/28/20 12:00 03/15/20 09:19 Metoprolol FEEDTUBE Not Given BID [facility] Midodrine 15 mg 02/04/20 16:00 03/15/20 09:18 Midodrine 5 Mg Tab PO 15 mg TID@0800,1200,1600 CAR Administration Morphine Sulfate 2 mg 01/06/20 15:41 03/11/20 10:42 Morphine 2 Mg/1 Ml Inj IV 2 mg Q4H PRN Administration Pain, Moderate (4-6) Multi-Ingred Cream/Lotion/Oil/Oint 1 applic 02/01/20 15:52 Artificial Tears Ophth Oint OU Q4HR PRN Dry Eye(s) Nitroglycerin 0.4 mg 01/19/20 21:09 01/20/20 03:03 Nitrostat SL 0.4 mg .Q5MIN PRN Administration Chest Pain Ondansetron HCl 4 mg 01/05/20 14:37 03/14/20 13:43 Ondansetron 4 Mg/2 Ml Inj IV 4 mg Q8H PRN Administration Nausea And Vomiting Polyethylene Glycol 17 gm 12/04/19 22:00 03/14/20 21:42 Miralax 3350 PO Not Given QHS CAR Quetiapine Fumarate 300 mg 01/13/20 22:00 03/15/20 09:18 Quetiapine 100 Mg Tab PO 300 mg BID CAR Administration Simple Syrup 15 ml 01/09/20 12:01 Simple Syrup 15 Ml FEEDTUBE PRN PRN Hypoglycemia Simple Syrup 30 ml 01/09/20 12:01 Simple Syrup 15 Ml FEEDTUBE PRN PRN Hypoglycemia Sodium Bicarbonate 325 mg 01/09/20 12:01 03/07/20 12:56 Sodium Bicarbonate 325 Mg Tab FEEDTUBE 325 mg PRN PRN Administration For Clogged Feeding Tube Sodium Chloride 10 ml 11/24/19 10:00 03/15/20 09:19 Sodium Chloride Flush Syringe 10 Ml IV 10 ml BID CAR Administration Tamsulosin HCl 0.8 mg 12/20/19 22:00 03/14/20 21:41 Flomax PO 0.8 mg QHS CAR Administration Nutrition/Malnutrition Assess - Dietary Evaluation Nutrition/Malnutrition Findings: Nutrition Notes Start: 11/24/19 12:22 Freq: Status: Active Protocol: Document 03/11/20 11:59 AB (Rec: 03/11/20 12:02 AB [id number]) Co-Sign 03/11/20 11:59 LP Nutrition Notes Initial or Follow up Reassessment Current Diagnosis Coronary Artery Disease,Heart Failure,Respiratory Failure, Stroke,Hyperlipidemia Other Pertinent Diagnosis Partial SBO, pneu Current Diet Osmolite 1.5 at 65ml/hr Labs/Tests Na 136 BUN 25 Cr 0.6 POC BG 181 Pertinent Medications Reviewed Height 6 ft 2 in Weight 126.2 kg [place] Body Weight (kg) 86.36 BMI 35.7 Weight Status Obese Subjective/Other Information F/U for TF rate/tolerance. Per RN, TF is being held for 4 hrs then started at a lower rate d/t nausea. Percent of energy/protein needs met: 0%/0% Burn Absent Trauma Absent GI Symptoms None Current % PO Negligible Minimum of two criteria Yes Muscle Mass Mild Depletion (non-severe) Fluid Accumulation Mild (non-severe) Reduced [employer] Strength Measurably Reduced (severe) #2 Nutrition Diagnosis Malnutrition Diagnosis Progress(for reassessment Continues documentation) #1 Nutrition Diagnosis Inadequate oral intake Diagnosis Progress(for reassessment Continues documentation) Is patient on ventilator? Yes Is Patient Ambulatory and/or Out of Bed No REE-([place]-confined to bed) 2556.636 Kcal/Kg value to use for calculation 17 Approximate Energy Requirements Using 2145 kcal/Kg Calculation Used for Recommendations Kcal/kg Additional Notes Protein needs are 173g ( greater than 2g/kg IBW) Fluid needs are 1 ml/kcal Nutrition Intervention Change Diet Order: Continue TF via PEG Nutrition Support: Osmolite 1.5 at 65 ml/hr. Flush 200 ml q4h. Kcal 2,340 Protein (gm) 98 Fluid (mL) 1,189 Goal #1 Meet at least 75% of pt's energy and protein needs via TF Goal #2 Weight maintenance Anticipated Discharge Needs: unable to determine at this time Follow-Up By: 03/15/20 Additional Comments F/U TF rate/tolerance
--- NOTE | 2020-03-15 11:16 | Progress Note ---
Assessment and Plan - Patient Problems (1) Paroxysmal atrial fibrillation Current Visit: Yes Status: Acute Plan to address problem: Continue current management of atrial fibrillation on a rate control strategy and oral anticoagulation, stable cardiac status. Subjective Date of service: 03/15/20 Principal diagnosis: Ac hypoxemic resp failure; Pneumonia; PUI COVID-19; CHF; COPD; HTN Interval history: Patient is comfortable, on trach, telemetry shows atrial fibrillation with a ventricular rate of 103. Objective Vital Signs Temp Pulse Pulse Resp BP Pulse Ox Pulse Ox 03/15/20 09:19 107 H 94/72 03/15/20 09:00 122 H 19 94/72 100 03/15/20 08:00 97.4 F L 117 H 106 H 17 126/94 99 03/15/20 07:49 117 H 126/94 100 03/15/20 07:00 122 H 17 117/90 99 03/15/20 06:00 121 H 17 112/82 99 03/15/20 05:00 132 H 17 112/82 96 03/15/20 04:30 100 03/15/20 04:20 118 H 104/75 100 03/15/20 04:00 125 H 125 H 16 91/72 100 03/15/20 03:54 98.2 F 03/15/20 03:00 117 H 18 96/74 99 03/15/20 02:00 116 H 18 109/83 99 03/15/20 01:00 109 H 18 96/73 100 03/15/20 00:00 98.4 F 124 H 119 H 17 96/73 99 03/14/20 23:38 127 H 103/70 99 03/14/20 23:00 126 H 16 103/70 100 03/14/20 22:00 114 H 20 104/75 99 03/14/20 21:42 115 H 96/78 03/14/20 21:00 119 H 22 94/82 98 03/14/20 20:07 121 H 99/77 99 03/14/20 20:00 97.4 F L 117 H 114 H 17 99/77 99 03/14/20 19:24 111 H 19 108/78 100 03/14/20 19:00 112 H 19 108/78 99 03/14/20 18:00 129 H 20 92/75 100 03/14/20 17:05 110 H 103/79 100 03/14/20 17:01 98 03/14/20 17:00 117 H 20 103/79 98 03/14/20 16:53 113 H 116/85 03/14/20 16:00 97.7 F 122 H 21 116/85 97 03/14/20 15:00 125 H 19 111/81 98 03/14/20 14:00 117 H 20 106/84 98 03/14/20 13:00 120 H 22 97/81 99 03/14/20 12:00 97.9 F 125 H 21 96/74 99 03/14/20 11:20 126 H 96/74 99 - Physical Examination General: Other (s/p trach) HEENT: Positive: PERRL Neck: Positive: neck supple, Other (s/p trach) Cardiac: Positive: irregularly irregular Lungs: Positive: Decreased Breath Sounds Neuro: Positive: Weakness Abdomen: Positive: Soft Skin: Positive: Clear Extremities: Absent: edema - Labs and Meds CBC 03/15/20 Range/Units 04:05 WBC 6.0 (4.5-11.0) K/mm3 RBC 4.09 (3.65-5.03) M/mm3 Hgb 10.0 L (11.8-15.2) gm/dl Hct 31.6 L (35.5-45.6) % Plt Count 205 (140-440) K/mm3 Lymph # (Auto) 2.2 (1.2-5.4) K/mm3 [place] # (Auto) 0.6 (0.0-0.8) K/mm3 Eos # (Auto) 0.2 (0.0-0.4) K/mm3 Baso # (Auto) 0.0 (0.0-0.1) K/mm3 Comprehensive Metabolic Panel 03/15/20 Range/Units 04:05 Sodium 137 (137-145) mmol/L Potassium 4.3 (3.6-5.0) mmol/L Chloride 98.7 (98-107) mmol/L Carbon Dioxide 32 H (22-30) mmol/L BUN 17 (9-20) mg/dL Creatinine 0.5 L (0.8-1.3) mg/dL Glucose 141 H (75-100) mg/dL Calcium 9.0 (8.4-10.2) mg/dL - Allied health notes Allied health notes reviewed: RT
[2020-03-15] MEDS: INSULIN REGULAR, HUMAN 100 UNIT/ML 3ML VIAL SUB-Q SCH ×4 (12:10→22:49)
[2020-03-15] MEDS: DIGOXIN 0.125 MG TAB PO SCH (17:42)
[2020-03-15] MEDS: TAMSULOSIN 0.4 MG CAP PO SCH (22:51)
[2020-03-15] MEDS: POLYETHYLENE GLYCOL 3350 17 GM POWDER PO SCH (22:53)
[2020-03-16] MEDS: INSULIN REGULAR, HUMAN 100 UNIT/ML 3ML VIAL SUB-Q SCH ×3 (06:52→18:57)
[2020-03-16] MEDS: DOCUSATE SODIUM 100 MG/10 ML ORAL LIQD FEEDTUBE SCH ×2 (09:30→21:26)
[2020-03-16] MEDS: QUEtiapine 100 MG TAB PO SCH ×2 (09:30→21:28)
[2020-03-16] MEDS: METOPROLOL TARTRATE 25 MG TAB FEEDTUBE SCH ×2 (09:30→21:28)
[2020-03-16] MEDS: LANSOPRAZOLE 30 MG SOLUTAB FEEDTUBE SCH (09:30)
[2020-03-16] MEDS: GLYCOPYRROLATE 2 MG TAB PO SCH ×3 (09:31→20:23)
[2020-03-16] MEDS: MIDODRINE 5 MG TAB PO SCH ×3 (09:31→18:05)
[2020-03-16] MEDS: CLOPIDOGREL 75 MG TAB PO SCH (09:31)
[2020-03-16] MEDS: APIXABAN 5 MG TAB PO SCH ×2 (09:31→21:27)
--- NOTE | 2020-03-16 10:15 | Progress Note ---
Assessment and Plan - Patient Problems (1) Paroxysmal atrial fibrillation Current Visit: Yes Status: Acute Plan to address problem: Continue current management of atrial fibrillation on a rate control strategy and oral anticoagulation, stable cardiac status. Subjective Date of service: 03/16/20 Principal diagnosis: Ac hypoxemic resp failure; Pneumonia; PUI COVID-19; CHF; COPD; HTN Interval history: Patient is comfortable, on trach, telemetry shows atrial fibrillation with a ventricular rate of 105. Objective Vital Signs Temp Pulse Pulse Resp BP Pulse Ox Pulse Ox 03/16/20 09:30 123 H 106/79 03/16/20 08:01 134 H 20 124/75 91 03/16/20 08:00 141 H 141 H 17 100 03/16/20 07:49 127 H 114/76 100 03/16/20 07:01 144 H 19 114/76 100 03/16/20 06:01 150 H 18 118/84 100 03/16/20 05:01 135 H 19 120/90 100 03/16/20 04:17 131 H 115/86 100 100 03/16/20 04:01 127 H 20 115/86 100 03/16/20 04:00 97.4 F L 129 H 129 H 17 100 03/16/20 03:01 142 H 20 109/83 99 03/16/20 02:00 119 H 14 100/79 03/16/20 01:01 130 H 19 109/74 98 03/16/20 00:18 105 H 109/79 100 03/16/20 00:01 120 H 24 112/86 99 03/16/20 00:00 97.7 F 120 H 120 H 15 100 03/15/20 23:00 116 H 18 109/79 99 03/15/20 22:53 121 H 100/77 03/15/20 22:47 124 H 19 100/77 98 03/15/20 22:00 111 H 17 100/77 99 03/15/20 21:10 124 H 96/76 100 03/15/20 21:01 122 H 16 96/76 100 03/15/20 20:00 97.5 F L 130 H 130 H 20 101/84 98 03/15/20 19:00 121 H 22 105/69 100 03/15/20 18:17 114 H 106/69 99 03/15/20 18:05 99 03/15/20 18:01 110 H 16 105/69 100 03/15/20 17:42 122 H 106/74 03/15/20 17:00 126 H 17 96/66 100 03/15/20 16:00 97.6 F 108 H 108 H 18 111/82 100 03/15/20 15:00 107 H 18 106/76 100 03/15/20 14:51 119 H 106/76 100 03/15/20 14:00 117 H 17 110/80 100 03/15/20 13:00 117 H 16 106/66 100 03/15/20 12:00 97.0 F L 118 H 126 H 19 98/68 100 03/15/20 11:09 111 H 98/68 100 03/15/20 11:00 118 H 17 104/82 100 - Physical Examination General: Other (s/p trach) HEENT: Positive: PERRL Neck: Positive: neck supple, Other (s/p trach) Cardiac: Positive: irregularly irregular Lungs: Positive: Decreased Breath Sounds Neuro: Positive: Weakness Abdomen: Positive: Soft Skin: Positive: Clear Extremities: Absent: edema - Allied health notes Allied health notes reviewed: RT
--- NOTE | 2020-03-16 13:23 | Progress Note ---
Assessment and Plan Assessment and plan: --Ischemic cardiomyopathy Cardiology is following, status post cardiac catheterization on 01/22/2020; Co ronary artery disease status post PCI and stent to the LAD Continue current cardiac medications --Acute on chronic hypoxemic respiratory failure; Patient has tracheostomy on vent Continue nebulizers, , trach care Wean off ventilator as tolerated Pulmonary critical following --Acute exacerbation of COPD; Patient is currently on ventilatory support Continue nebulizers --Left lower lobe PE; Continue Eliquis, ventilatory support --Acute right lower extremity DVT; Patient is on Eliquis --Bilateral multifocal pneumonia/community-acquired Completed antibiotics, improved --Severe sepsis/bilateral pneumonia: Completed antibiotics COVID-19 test; 11/24/2019; negative 11/26/2019; negative 12/29/2019: Negative --Paroxysmal atrial fibrillation; Now rate controlled, Stable on amiodarone and Eliquis --Acute on chronic combined systolic and diastolic congestive heart failure Ischemic cardiomyopathy left ventricular ejection fraction 40 to 45% --H/o CAD [[facility] 12/2018 in-stent restenosis] Patient is stable on current cardiac medications --Hypertensive emergency; present on admission Reasonable blood pressures, continue current antihypertensives As needed medications --History of alcohol abuse/alcohol withdrawal; Was on CIWA protocol, now stable --Oropharyngeal dysphagia; status post PEG placement Continue PEG feeds per protocol --History of partial small bowel obstruction; resolved Surgery evaluated. --Obesity; BMI 34.7 Patient needs weight reduction when medically stable --Severe protein calorie malnutrition/hypoalbuminemia Nutrition supplements, dietitian following, PEG feeds --DVT prophylaxis;Eliquis --Full CODE STATUS 01/05; Pt stable. NGT output 650cc over 24 hours, bilious. No f/c, WBC within normal limits. cont NG suction and cont to hold TF 01/06: Abs series - mild improvement in small bowel distension in mid abdomen, normal gas/stool pattern in colon. NGT in duodenum. Continue to hold tube feeding, maintain NG tube with low intermittent suction. Patient's was updated by phone. Continue to provide supportive care and monitor clinically. 01/07: +BMs today and NGT/PEG output appears more gastric today. Plan to clamp NGT, if tolerates start TF from tomorrow. cont supportive care. 01/08; Gastric output decreased over last 24 hours. NGT has been clamped x 24 hours. plan to dc NGT and to start TTF via PEG - vital HF @10cc/hr 01/09: clinically stable, tolerating TF. monitor BMP, wean off from vent as tolerated clinically stable, on TF. wean off vent as tolerated 01/11: wean off from vent, cont to monitor, on TF 01/12: wean off from vent, cont to monitor, on TF. need placement - unfunded 01/13; remains on ventilatory support, unable to wean, DC planning possible LTAC, unfunded 01/14; patient of ventilatory support, T-piece tracheostomy on oxygen, LTAC placement per case management 01/16; tracheostomy, patient on full ventilatory support, wean off vent support as tolerated, pending LTAC placement, social financial issues 01/17; awaiting LTAC placement, insurance and financial issues 01/18; patient tracheostomy remains on ventilatory support 01/19; wean off ventilator as tolerated 01/20; remains on ventilatory support, patient complains of intermittent chest pain, cardiology recommend left heart catheterization tomorrow 01/22/2020. Patient for left heart catheterization per cardiology. Patient remains on AC mode ventilation rate 12, tidal volume 450, FiO2 30% and PEEP of 6. Continue tracheostomy care, airway management and secretion control. 01/23/2020. Cardiac catheterization completed yesterday revealed widely patent previous LAD stent with mild nonobstructive atherosclerosis of the right mid coronary artery and rest of the coronary system was without significant atherosclerosis. The left ventricle ejection fraction was mildly impaired at 40 to 45%. There was some hypokinesis of the basal inferior wall suggestive of previous or recent infarct. Continue GDMT for coronary artery disease including beta blockers, topical nitrates, statin and Plavix. Continue Eliquis for paroxysmal atrial fibrillation and PE. Continue diuresis with Lasix and follow electrolytes closely. Continue Robinul and scopolamine for secretion control and daily SBT per pulmonary. Also, continue bronchodilators and routine trach care/airway management. T-piece trials per pulmonary as tolerated. 01/24/2020. Recent cardiac catheterization has documented widely patent left anterior descending artery stent with minimal nonobstructive diffuse coronary artery disease in the rest of the coronary arteries. Evidence of ischemic cardiomyopathy with inferior wall hypokinesis. Continue with guideline directed medical therapy. Continue Robinul and scopolamine for secretion control and daily SBT per pulmonary. Continue bronchodilators and routine trach care/airway management. T-piece trials per pulmonary as tolerated. 01/25/2020. Continue with guideline directed medical therapy for systolic heart failure. Cardiac catheterization revealed evidence of ischemic cardiomyopathy with inferior wall hypokinesis (EF 40-45%). Patient currently on T-piece with oxygen 10 L/min FiO2 40%. Continue Robinul and scopolamine for secretion control. Continue bronchodilators and routine trach care/airway management. 02/03: Mental status more improved, agree with Reglan will change to IV scheduled for two days, no new vomiting. Pseudomonas A in Sputum. 02/04: Clinical improving, amiodarone discontinued due to LFTs, continue Metoprolol.d/w GI, started on Golytely to clear impaction. Started on dialy Miralax. 02/05: Continue supportive care. Noted bowel movement, continue bowel regimen 02/06: Cardiology input noted beta-hebert increased for better suppression of atrial fibrillation. Continue to monitor, no other evidence of nausea vomiting noted. Discussed with respiratory therapist will be continued on weaning protocol with pressure support today. 02/07: Patient successfully weaned off the ventilator, No new complaints, c ontinue monitoring, BM noted, Discussed with pulmonary, 02/08; tracheostomy on T-piece, patient is more alert and awake today 02/09; clinically no change, tracheostomy on vent 02/10; tracheostomy on vent, full CODE STATUS, poor prognosis, 02/11; clinically no change, remains on ventilatory support, full CODE STATUS, discussed with spouse Ms. Paulette Araiza extensively today 02/12. Patient resting comfortably no change on vent with tracheostomy. Still unable to wean. Some increased crackles today. 02/13: Still unable to wean from the vent. Overall prognosis remains extremely poor. 02/14; remains critically ill, tracheostomy on vent, unable to wean, poor prognosis, full CODE STATUS 02/15; patient is more alert and awake today, chronic tracheostomy on T-piece, continue current management DC planning per case management. Disposition very difficult due to lack of resources and insurance 02/17/2020. Patient remains on mechanical ventilation and tolerating PSV trials. Patient currently with PSV 10/6 at FiO2 of 30%. 02/18/2020. Patient currently on PSV 10/6 with FiO2 of 40%. 40% T-piece trial was attempted but patient unable to tolerate due to saturations dropping into the 80s and heart rate in the 140s. Therefore, patient placed back on PSV. Continue anticoagulation with Eliquis. Continue secretion control with Robinul and scopolamine. Continue rate control with metoprolol and digoxin. 02/19/2020. Patient currently on PSV 10/6 with FiO2 of 30%. T-piece trial attempted yesterday but patient did not tolerate. Continue T-piece trials as tolerated. Continue anticoagulation with Eliquis. Continue secretion control with Robinul and scopolamine. Continue rate control with metoprolol and digoxin. Continue to follow with case management with regards to discharge pl anning. 02/20/2020. Patient continues to tolerate PSV 10/6. Continue rate control with metoprolol and digoxin. Amiodarone discontinued due to elevated liver transaminases. Eliquis for anticoagulation acute PE/DVT. 02/21/2020. Patient continues to tolerate PSV 10/6 at FiO2 of 30%. Continue ra te control with metoprolol and digoxin. Amiodarone discontinued due to elevated liver transaminases. Eliquis for anticoagulation acute PE/DVT. 02/22/2020. Patient continues to tolerate PSV 10/6 at FiO2 of 30%. Continue rate control with metoprolol and digoxin. Amiodarone discontinued due to el evated liver transaminases. Eliquis for anticoagulation acute PE/DVT. 02/22. Awake and alert on vent. Vitals stable. 02/23. Awake and alert on vent. Requests for ice. Vitals stable 02/24. Trach to vent. Continue rate control with metoprolol and digoxin. Amiodarone discontinued due to elevated liver transaminases. Eliquis for anticoagulation of acute PE/DVT. Transferred to [facility] 02/25. Seen in [facility]. Requests for ice. RN to provide a cube of ice. Vitals stable. 02/26. No change in medical condition. Slightly tachy this AM. Will monitor. 02/27. Cardiology started him on a beta hebert. Still on vent 02/28. Discharge planning as per knife grinder. Still on vent. Tachycardia noted. 03/01/2020; patient is tachycardic, still on the vent. Discharge management as per knife grinder. 03/02/2020; patient is on a vent and trach. Discharge is per knife grinder. 03/03/2012; patient is on vent and trach patient is alert and oriented. 03/04/2020; patient is on vent and trach, patient is alert. 03/05/2020; patient is on vent and trach, patient is alert. 03/06/2020 tracheostomy on vent , patient is alert, possible LTAC placement 03/08/2020 remains on ventilatory support; wean off the vent, pending LTAC placement 03/09/2020; clinically no change, tracheostomy on ventilatory support, unable to wean, awaiting LTAC placement, social issues 03/10/2020; clinically no change; patient alert and awake; 03/11/2020; patient is more alert and awake asking for some water, remains on ventilatory support, awaiting LTAC placement 03/12/2020; clinically no change, tracheostomy on ventilatory support, unable to wean, awaiting LTAC placement 03/13 patient on vent via tracheostomy, alert and oriented and offers no complaints except some neck pain. Denies any chest pain or shortness of breath or palpitations. All interdisciplinary notes reviewed 03/14/2020. Patient currently on AC mode ventilation rate of 12 tidal volume 450 FiO2 30% and a PEEP of 6. Patient is s/p tracheostomy on ventilatory support awaiting LTAC placement. 03/15/2020. Patient remains on AC mode ventilation rate 12, tidal volume 450, FiO2 30% and PEEP of 6. Patient failed CPAP trials. Unfortunately, Patient is uninsured and his only d/c option is to return home with family. 03/16/20. Patient remains on AC mode ventilation rate 12, tidal volume 450, FiO2 30% and PEEP of 6. Cont. PSV as figueroa. Patient is uninsured and his only d/c option is to return home with family. The high probability of a clinically significant, sudden or life threatening deterioration of the [Respiratory, cardiovascular & neurological] system(s) required my full and direct attention, intervention and personal management. The aggregate critical care time was [32] minutes without overlap. Time includes spent on [x] Data Review and interpretation [x] Patient assessment and monitoring of vital signs [x] Documentation [x] Medication orders and management History Interval history: Patient is a 64-year-old male with known history of hypertension, COPD, history of coronary artery disease, CHF with ejection fraction of 20 to 25% 2019 was admitted through emergency room with worsening shortness of breath Patient was found to be hypoxic and in respiratory distress. Patient was placed on CPAP in route to the hospital. Patient remained hypoxic on CPAP BiPAP ,subsequently was intubated. Patient also had bilateral multifocal pneumonia managed appropriately with a ntibiotics sputum cultures positive for Pseudomonas, ID treated with cefepime and Vanco. His hospital course became complicated with acute PE, DVT, paroxysmal atrial fib - placed on chronic anticoagulation. Patient was difficult to wean off, status post trach and PEG, remains on mechanical ventilation with trach tube. He then developed partial small bowel obstruction evaluated by general surgeon symptom improved with medical Mx, patient was briefly weaned off ventilatory support however, was in respiratory failure requiring full ventilatory support. Cardiac catheterization on 01/22/2020. Patient remains on mechanical ventilatory support. Patients still with elevated heart rate of Afib with RVR continue amiodarone and metoprolol. LVEF 40 to 45% on Eliquis FOR THE Acute PE/DVT. Partial SBO vs ileus- KUB is negative. Brief history; Patient is a 64-year-old male with known history of hypertension, COPD, history of coronary artery disease, CHF with ejection fraction of 20 to 25% 2019 was admitted through emergency room with worsening shortness of breath Patient was found to be hypoxic and in respiratory distress. Patient was placed on CPAP in route to the hospital. Patient remained hypoxic on CPAP BiPAP ,subsequently was intubated, vent dependent. Unable to wean subsequently had tracheostomy and PEG placement, patient also has acute PE DVT and paroxysmal atrial fibrillation on chronic anticoagulation. Patient is vent dependent, social issues, awaiting LTAC placement Hospitalist Physical - Constitutional Vitals: Temp Pulse Resp BP Pulse Ox 97.6 F 121 H 17 88/64 98 03/16/20 11:44 03/16/20 12:05 03/16/20 11:01 03/16/20 12:05 03/16/20 12:05 General appearance: Present: no acute distress, well-nourished, other (Tracheostomy on vent) - EENT Eyes: Present: PERRL, EOM intact ENT: hearing intact, clear oral mucosa, dentition normal - Neck Neck: Present: supple, normal ROM - Respiratory Respiratory effort: normal Respiratory: bilateral: CTA - Cardiovascular Rhythm: regular Heart Sounds: Present: S1 & S2. Absent: gallop, rub - Extremities Extremities: no ischemia, No edema, Full ROM - Abdominal General gastrointestinal: soft, non-tender, non-distended, normal bowel sounds - Integumentary Integumentary: Present: clear, warm, dry - Neurologic Neurologic: CNII-XII intact, moves all extremities HEART Score - HEART Score Troponin: Troponin T < 0.010 ng/mL (0.00-0.029) 01/19/20 01:35 Results - Labs CBC & Chem 7: 03/15/20 04:05 03/15/20 04:05 Labs: Laboratory Last Values WBC 6.0 K/mm3 (4.5-11.0) 03/15/20 04:05 RBC 4.09 M/mm3 (3.65-5.03) 03/15/20 04:05 Hgb 10.0 gm/dl (11.8-15.2) L 03/15/20 04:05 Hct 31.6 % (35.5-45.6) L 03/15/20 04:05 MCV 77 fl (84-94) L 03/15/20 04:05 MCH 24 pg (28-32) L 03/15/20 04:05 MCHC 32 % (32-34) 03/15/20 04:05 RDW 22.4 % (13.2-15.2) H 03/15/20 04:05 Plt Count 205 K/mm3 (140-440) 03/15/20 04:05 Lymph % (Auto) 36.2 % (13.4-35.0) H 03/15/20 04:05 [place] % (Auto) 9.4 % (0.0-7.3) H 03/15/20 04:05 Eos % (Auto) 2.8 % (0.0-4.3) 03/15/20 04:05 Baso % (Auto) 0.6 % (0.0-1.8) 03/15/20 04:05 Lymph # (Auto) 2.2 K/mm3 (1.2-5.4) 03/15/20 04:05 [place] # (Auto) 0.6 K/mm3 (0.0-0.8) 03/15/20 04:05 Eos # (Auto) 0.2 K/mm3 (0.0-0.4) 03/15/20 04:05 Baso # (Auto) 0.0 K/mm3 (0.0-0.1) 03/15/20 04:05 Add Manual Diff Complete 02/15/20 06:59 Total Counted 100 02/15/20 06:59 Seg Neutrophils % 51.0 % (40.0-70.0) 03/15/20 04:05 Seg Neuts % (Manual) 58.0 % (40.0-70.0) 02/15/20 06:59 Band Neutrophils % 0 % 02/15/20 06:59 Lymphocytes % (Manual) 34.0 % (13.4-35.0) 02/15/20 06:59 Reactive Lymphs % (Man) 1.0 % 02/15/20 06:59 Monocytes % (Manual) 4.0 % (0.0-7.3) 02/15/20 06:59 Eosinophils % (Manual) 0 % (0.0-4.3) 02/15/20 06:59 Basophils % (Manual) 2.0 % (0.0-1.8) H 02/15/20 06:59 Metamyelocytes % 1.0 % 02/15/20 06:59 Myelocytes % 0 % 02/15/20 06:59 Promyelocytes % 0 % 02/15/20 06:59 Blast Cells % 0 % 02/15/20 06:59 Nucleated RBC % 1.0 % (0.0-0.9) H 02/15/20 06:59 Seg Neutrophils # 3.0 K/mm3 (1.8-7.7) 03/15/20 04:05 Seg Neutrophils # Man 5.9 K/mm3 (1.8-7.7) 02/15/20 06:59 Band Neutrophils # 0.0 K/mm3 02/15/20 06:59 Lymphocytes # (Manual) 3.5 K/mm3 (1.2-5.4) 02/15/20 06:59 Abs React Lymphs (Man) 0.1 K/mm3 02/15/20 06:59 Monocytes # (Manual) 0.4 K/mm3 (0.0-0.8) 02/15/20 06:59 Eosinophils # (Manual) 0.0 K/mm3 (0.0-0.4) 02/15/20 06:59 Basophils # (Manual) 0.2 K/mm3 (0.0-0.1) H 02/15/20 06:59 Metamyelocytes # 0.1 K/mm3 02/15/20 06:59 Myelocytes # 0.0 K/mm3 02/15/20 06:59 Promyelocytes # 0.0 K/mm3 02/15/20 06:59 Blast Cells # 0.0 K/mm3 02/15/20 06:59 WBC Morphology Not Reportable 02/15/20 06:59 Hypersegmented Neuts Not Reportable 02/15/20 06:59 Hyposegmented Neuts Not Reportable 02/15/20 06:59 Hypogranular Neuts Not Reportable 02/15/20 06:59 Smudge Cells Not Reportable 02/15/20 06:59 Toxic Granulation Not Reportable 02/15/20 06:59 Toxic Vacuolation Not Reportable 02/15/20 06:59 Dohle Bodies Not Reportable 02/15/20 06:59 Pelger-Huet Anomaly Not Reportable 02/15/20 06:59 Hector Rods Not Reportable 02/15/20 06:59 Platelet Estimate Consistent w auto 02/15/20 06:59 Clumped Platelets Not Reportable 02/15/20 06:59 Plt Clumps, EDTA Not Reportable 02/15/20 06:59 Large Platelets Not Reportable 02/15/20 06:59 Giant Platelets Not Reportable 02/15/20 06:59 Platelet Satelliting Not Reportable 02/15/20 06:59 Plt Morphology Comment Giant platelets 02/15/20 06:59 RBC Morphology Not Reportable 02/15/20 06:59 Dimorphic RBCs Not Reportable 02/15/20 06:59 Polychromasia Not Reportable 02/15/20 06:59 Hypochromasia 1+ 02/15/20 06:59 Poikilocytosis Few 02/15/20 06:59 Anisocytosis 1+ 02/15/20 06:59 Microcytosis Not Reportable 02/15/20 06:59 Macrocytosis Not Reportable 02/15/20 06:59 Spherocytes Not Reportable 02/15/20 06:59 Pappenheimer Bodies Not Reportable 02/15/20 06:59 Sickle Cells Not Reportable 02/15/20 06:59 Target Cells 1+ 02/15/20 06:59 Tear Drop Cells Few 02/15/20 06:59 Ovalocytes Not Reportable 02/15/20 06:59 Helmet Cells Not Reportable 02/15/20 06:59 Gottlieb-Twining Bodies Not Reportable 02/15/20 06:59 [place] Rings Not Reportable 02/15/20 06:59 [place] Cells Not Reportable 02/15/20 06:59 Bite Cells Not Reportable 02/15/20 06:59 Crenated Cell Not Reportable 02/15/20 06:59 Elliptocytes Few 02/15/20 06:59 Acanthocytes (Spur) Not Reportable 02/15/20 06:59 Rouleaux Not Reportable 02/15/20 06:59 Hemoglobin C Crystals Not Reportable 02/15/20 06:59 Schistocytes Not Reportable 02/15/20 06:59 Malaria parasites Not Reportable 02/15/20 06:59 [place] Bodies Not Reportable 02/15/20 06:59 Hem Pathologist Commnt No 02/15/20 06:59 PT 27.0 Sec. (12.2-14.9) H 02/07/20 15:03 INR 2.46 (0.87-1.13) H 02/07/20 15:03 APTT 31.5 Sec. (24.2-36.6) 01/22/20 09:58 Heparin Anti-Xa Level 1.34 U.I./ml (0.3-0.7) H 01/22/20 04:45 ABG pH 7.454 (7.320-7.450) H 03/12/20 04:45 POC ABG pCO2 45.6 mmHg (32.0-48.0) 03/12/20 04:45 ABG pCO2 47.8 mm Hg 02/20/20 06:45 POC ABG pO2 69.2 mmHg (83-108) L 03/12/20 04:45 ABG pO2 88.7 mm Hg (80.0-90.0) 02/20/20 06:45 POC ABG HCO3 31.3 03/12/20 04:45 ABG HCO3 33.3 mmol/L (20.0-26.0) H 02/20/20 06:45 ABG O2 Saturation 97.2 % (95.0-99.0) 02/20/20 06:45 ABG O2 Content 13.3 (0.0-44) 02/20/20 06:45 POC ABG Base Excess 6.5 03/12/20 04:45 ABG Base Excess 8.4 mmol/L (-2.0-3.0) H 02/20/20 06:45 ABG Hemoglobin 11.2 (12.0-17.5) L 03/12/20 04:45 ABG Oxyhemoglobin 84 (94-98) L 12/22/19 03:22 ABG Carboxyhemoglobin 2.9 % (0.0-5.0) 02/20/20 06:45 ABG Methemoglobin 0.4 % (0.0-1.5) 02/20/20 06:45 ABG Sodium 134.7 mmol/L (136.0-145.0) L 03/12/20 04:45 ABG Potassium 3.9 mmol/L (3.40-4.50) 03/12/20 04:45 ABG Chloride 98.0 mmol/L (98-107) 03/12/20 04:45 ABG Glucose 151 mg/dL (65-95) H 03/12/20 04:45 Oxyhemoglobin 94.1 % (95.0-99.0) L 02/20/20 06:45 Carboxyhemoglobin 0.7 (0.5-1.5) 12/22/19 03:22 FiO2 30 03/12/20 04:45 Sodium 137 mmol/L (137-145) 03/15/20 04:05 Potassium 4.3 mmol/L (3.6-5.0) 03/15/20 04:05 Chloride 98.7 mmol/L (98-107) 03/15/20 04:05 Carbon Dioxide 32 mmol/L (22-30) H 03/15/20 04:05 Anion Gap 11 mmol/L 03/15/20 04:05 BUN 17 mg/dL (9-20) 03/15/20 04:05 Creatinine 0.5 mg/dL (0.8-1.3) L 03/15/20 04:05 Estimated GFR > 60 ml/min 03/15/20 04:05 BUN/Creatinine Ratio 34 % 03/15/20 04:05 Glucose 141 mg/dL (75-100) H 03/15/20 04:05 POC Glucose 153 mg/dL (70-105) H 03/16/20 13:16 Lactic Acid 1.60 mmol/L (0.7-2.0) 02/03/20 12:49 Calcium 9.0 mg/dL (8.4-10.2) 03/15/20 04:05 Ferritin 84.4 ng/mL (30.0-300.0) 11/24/19 04:53 Phosphorus 4.10 mg/dL (2.5-4.5) 01/31/20 19:24 Magnesium 2.40 mg/dL (1.7-2.3) H 02/10/20 07:40 Total Bilirubin 1.30 mg/dL (0.1-1.2) H 02/08/20 19:00 Direct Bilirubin 0.9 mg/dL (0-0.2) H 02/08/20 19:00 Indirect Bilirubin 0.4 mg/dL 02/08/20 19:00 Total Creatine Kinase 141 units/L (55-170) 11/24/19 02:53 CK-MB (CK-2) 4.3 ng/mL (0.0-4.0) H 11/24/19 02:53 AST 309 units/L (5-40) H 02/08/20 19:00 ALT 650 units/L (7-56) H 02/08/20 19:00 CK-MB (CK-2) Rel Index 3.0 (0-4) 11/24/19 02:53 Alkaline Phosphatase 109 units/L (35-129) 02/08/20 19:00 C-Reactive Protein 8.50 mg/dL (0.00-1.30) H 12/01/19 12:16 Ammonia 35.0 umol/L (25-60) 02/03/20 12:49 Lactate Dehydrogenase 228 units/L (91-180) H 12/19/19 04:45 Troponin T < 0.010 ng/mL (0.00-0.029) 01/19/20 01:35 NT-Pro-B Natriuret Pep 3866 pg/mL (0-900) H 01/01/20 10:40 Total Protein 6.2 g/dL (6.3-8.2) L 02/08/20 19:00 Albumin 2.7 g/dL (3.9-5) L 02/08/20 19:00 Albumin/Globulin Ratio 0.8 % 02/08/20 19:00 Procalcitonin 0.44 ng/mL (<0.15) 02/03/20 12:49 Arterial Blood Glucose 151 mg/dL (65-95) H 03/12/20 04:45 Arterial Blood Ionized Calcium 4.8 mg/dL (4.6-5.3) 03/12/20 04:45 Urine Color Cecy (Yellow) 02/26/20 07:50 Urine Turbidity Clear (Clear) 02/26/20 07:50 Urine pH 5.0 (5.0-7.0) 02/26/20 07:50 Ur Specific [place] 1.025 (1.003-1.030) 02/26/20 07:50 Urine Protein 30 mg/dl mg/dL (Negative) 02/26/20 07:50 Urine Glucose (UA) Neg mg/dL (Negative) 02/26/20 07:50 Urine Ketones Neg mg/dL (Negative) 02/26/20 07:50 Urine Blood Sm (Negative) 02/26/20 07:50 Urine Nitrite Neg (Negative) 02/26/20 07:50 Urine Bilirubin Neg (Negative) 02/26/20 07:50 Urine Urobilinogen 4.0 mg/dL (<2.0) 02/26/20 07:50 Ur Leukocyte Esterase Lg (Negative) 02/26/20 07:50 Urine WBC (Auto) > 182.0 /HPF (0.0-6.0) H 02/26/20 07:50 Urine RBC (Auto) 84.0 /HPF (0.0-6.0) 02/26/20 07:50 U Epithel Cells (Auto) 2.0 /HPF (0-13.0) 12/31/19 18:04 Urine Bacteria (Auto) 4+ /HPF (Negative) 02/26/20 07:50 Urine WBC Clumps 2+ /HPF 02/26/20 07:50 Urine Mucus 1+ /HPF 02/26/20 07:50 Urine Creatinine 57.4 mg/dL (0.1-20.0) H 01/31/20 Unknown Urine Sodium 59 mmol/L 01/31/20 Unknown Vancomycin Trough 14.2 ug/mL (5.0-20.0) 12/13/19 15:01 Coronavirus (PCR) Negative (Negative) 12/29/19 10:07 Hepatitis A IgM Ab Non-reactive (NonReactive) 02/05/20 06:37 Hep Bs Antigen Non-reactive (Negative) 02/05/20 06:37 Hep B Core IgM Ab Non-reactive (NonReactive) 02/05/20 06:37 Hepatitis C Antibody Non-reactive (NonReactive) 02/05/20 06:37 Blood Type O POSITIVE 01/21/20 13:00 Antibody Screen Negative 01/21/20 13:00 - Diagnostic Impressions Diagnostic Impressions: Echocardiogram 11/29/19 07:37 Transthoracic Echocardiogram Indication: CHF BP: 116/72 HR: 33 Conclusions *The study is technically limited due to poor acoustic windows. *Global left ventricular systolic function is normal. *The estimated ejection fraction is 50-55%. *Mild concentric left ventricular hypertrophy is observed. *There is trace of mitral regurgitation. *There is mild tricuspid regurgitation. Findings Procedure Info: The study quality is poor. The study is technically limited due to poor acoustic windows. The study is technically limited due to patient body habitus. Left Ventricle: The left ventricular chamber size is normal. Mild concentric left ventricular hypertrophy is observed. Global left ventricular systolic function is normal. The estimated ejection fraction is 50-55%. Left Atrium: The left atrial chamber size is normal. Right Ventricle: The right ventricular cavity size is normal. Right Atrium: The right atrial cavity size is normal. Aortic Valve: The aortic valve leaflets are moderately thickened. There is trace of aortic regurgitation. There is no evidence of aortic stenosis. Mitral Valve: The mitral valve leaflets are mildly thickened. There is trace of mitral regurgitation. There is no evidence of mitral stenosis. Tricuspid Valve: There is mild tricuspid regurgitation. No pulmonary hypertension is noted. Pulmonic Valve: There is trace pulmonic regurgitation. Pericardium: There is no pericardial effusion. Aorta: There is no dilatation of the aortic root. Venous: The inferior vena cava appears normal in size. Contrast: Definity was used to optimize study. Intravenous contrast was used to enhance endocardial border definition. Measurements Chambers 2D Name Value Normal Range Ao root diameter (2D) 3.4 cm (2 - 3.7) Aortic Valve Name Value Normal Range AV Vmax 0.98 m/sec - AV VTI 16.76 cm - AV peak gradient 3.83 mmHg - AV mean gradient 2.57 mmHg - LVOT diameter 3.11 cm - LVOT Vmax 0.68 m/sec - LVOT VTI 11.52 cm - LVOT peak gradient 1.84 mmHg - LVOT mean gradient 1.27 mmHg - SV LVOT 87.31 ml - MALOU (continuity Vmax) 5.24 cm2 - MALOU (continuity VTI) 5.21 cm2 - Tricuspid Valve Name Value Normal Range IVC diameter 2.24 cm (1.2 - 2.3) Hoffman/IV: Voiding Method Indwelling Catheter IV Catheter Type [Left INT / Saline Lock Antecubital] IV Catheter Type [Right INT / Saline Lock Forearm] IV Catheter Type [Right Hand] Peripheral IV IV Catheter Type [Right Upper INT / Saline Lock arm] IV Catheter Type [Left Upper Mid-line arm] IV Catheter Type [Left Forearm Peripheral IV ] IV Catheter Type [Left Hand] INT / Saline Lock IV Catheter Type [Left Wrist] INT / Saline Lock IV Catheter Type [Right Peripheral IV Antecubital] Active Medications - Current Medications Current Medications: Generic Name Dose Route Start Last Admin Trade Name Freq PRN Reason Stop Dose Admin Acetaminophen 650 mg 03/12/20 04:29 03/14/20 13:49 Acetaminophen 325 Mg/10.15 Ml Oral Liqd Unit Dose FEEDTUBE 650 mg Q6H PRN Administration Pain, Mild (1-3) Lipase/Protease/Amylase 1 each 01/09/20 12:01 03/07/20 12:56 Lipase 10,500/Protease 25,000/Amylase 43,750 (Units) Dr Lauren FEEDTUBE 1 each PRN PRN Administration For Clogged Feeding Tube Apixaban 5 mg 01/22/20 22:00 03/16/20 09:31 Eliquis PO 5 mg Q12HR CAR Administration Protocol Atorvastatin Calcium 40 mg 01/20/20 22:00 03/15/20 22:52 Lipitor PO 40 mg QHS CAR Administration Clopidogrel Bisulfate 75 mg 01/21/20 06:00 03/16/20 09:31 Plavix PO 75 mg QDAY CAR Administration Dextrose 50 ml 01/31/20 18:51 02/05/20 00:56 D50w (25gm) Syringe IV 50 ml Q30MIN PRN Administration Hypoglycemia Protocol Digoxin 0.125 mg 02/25/20 17:00 03/15/20 17:42 Lanoxin PO 0.125 mg DAILY@1700 [facility] Administration Docusate Sodium 100 mg 02/22/20 10:00 03/16/20 09:30 Colace FEEDTUBE 100 mg BID CAR Administration Glycopyrrolate 2 mg 02/24/20 21:00 03/16/20 09:31 Glycopyrrolate PO 2 mg TID CAR Administration Haloperidol Lactate 5 mg 02/10/20 14:20 03/03/20 02:25 Haloperidol Lactate 5 Mg/1 Ml Inj IV 5 mg Q6H PRN Administration Agitation Hydrophilic Ointment 1 applic 01/17/20 15:26 02/24/20 23:20 Lip Therapy Vaseline TP 1 applic DIRECT PRN Administration Dry Lips Insulin Human Regular 0 unit 02/01/20 18:00 03/16/20 06:52 Humulin R SUB-Q Not Given Q6H [facility] Protocol Lansoprazole 30 mg 02/05/20 16:00 03/16/20 09:30 Lansoprazole 30 Mg Solutab FEEDTUBE 30 mg QDAY CAR Administration Metoprolol Tartrate 5 mg 01/11/20 08:00 03/03/20 01:46 Metoprolol Tartrate 5 Mg/5 Ml Inj IV 5 mg Q6H PRN Administration SEE INSTRUCTIONS Metoprolol Tartrate 12.5 mg 02/28/20 12:00 03/16/20 09:30 Metoprolol FEEDTUBE 12.5 mg BID CAR Administration Midodrine 15 mg 02/04/20 16:00 03/16/20 09:31 Midodrine 5 Mg Tab PO 15 mg TID@0800,1200,1600 [facility] Administration Morphine Sulfate 2 mg 01/06/20 15:41 03/11/20 10:42 Morphine 2 Mg/1 Ml Inj IV 2 mg Q4H PRN Administration Pain, Moderate (4-6) Multi-Ingred Cream/Lotion/Oil/Oint 1 applic 02/01/20 15:52 Artificial Tears Ophth Oint OU Q4HR PRN Dry Eye(s) Nitroglycerin 0.4 mg 01/19/20 21:09 01/20/20 03:03 Nitrostat SL 0.4 mg .Q5MIN PRN Administration Chest Pain Ondansetron HCl 4 mg 01/05/20 14:37 03/14/20 13:43 Ondansetron 4 Mg/2 Ml Inj IV 4 mg Q8H PRN Administration Nausea And Vomiting Polyethylene Glycol 17 gm 12/04/19 22:00 03/15/20 22:53 Miralax 3350 PO 17 gm QHS CAR Administration Quetiapine Fumarate 300 mg 01/13/20 22:00 03/16/20 09:30 Quetiapine 100 Mg Tab PO 300 mg BID CAR Administration Simple Syrup 15 ml 01/09/20 12:01 Simple Syrup 15 Ml FEEDTUBE PRN PRN Hypoglycemia Simple Syrup 30 ml 01/09/20 12:01 Simple Syrup 15 Ml FEEDTUBE PRN PRN Hypoglycemia Sodium Bicarbonate 325 mg 01/09/20 12:01 03/07/20 12:56 Sodium Bicarbonate 325 Mg Tab FEEDTUBE 325 mg PRN PRN Administration For Clogged Feeding Tube Sodium Chloride 10 ml 11/24/19 10:00 03/16/20 09:32 Sodium Chloride Flush Syringe 10 Ml IV 10 ml BID CAR Administration Tamsulosin HCl 0.8 mg 12/20/19 22:00 03/15/20 22:51 Flomax PO 0.8 mg QHS CAR Administration Nutrition/Malnutrition Assess - Dietary Evaluation Nutrition/Malnutrition Findings: Nutrition Notes Start: 11/24/19 12:22 Freq: Status: Active Protocol: Document 03/15/20 12:10 AB (Rec: 03/15/20 12:14 AB [id number]) Co-Sign 03/15/20 12:10 LP Nutrition Notes Initial or Follow up Reassessment Current Diagnosis Coronary Artery Disease,Heart Failure,Respiratory Failure, Stroke,Hyperlipidemia Other Pertinent Diagnosis pneumonia Current Diet Osmolite 1.5 at 65ml/hr Labs/Tests Cr 0.5 BG 130 Pertinent Medications Reviewed Height 6 ft 2 in Weight 123.2 kg [place] Body Weight (kg) 86.36 BMI 34.8 Weight Status Obese Subjective/Other Information F/U for TF rate/tolerance. Per RN, pt TF is running at goal and tolerating it. Per RN, pt does not have any N/V. Percent of energy/protein needs met: 100%/57% Burn Absent Trauma Absent GI Symptoms None Current % PO Negligible Minimum of two criteria Yes Muscle Mass Mild Depletion (non-severe) Fluid Accumulation Mild (non-severe) Reduced Rag Baler Strength Measurably Reduced (severe) #2 Nutrition Diagnosis Malnutrition Diagnosis Progress(for reassessment Continues documentation) #1 Nutrition Diagnosis Inadequate oral intake Diagnosis Progress(for reassessment Continues documentation) Is patient on ventilator? Yes Is Patient Ambulatory and/or Out of Bed No REE-([place]-[facility] Jeor-confined to bed) 2520.672 Kcal/Kg value to use for calculation 17 Approximate Energy Requirements Using 2094 kcal/Kg Calculation Used for Recommendations Kcal/kg Additional Notes Protein needs are 173g ( greater than 2g/kg IBW) Fluid needs are 1 ml/kcal Nutrition Intervention Change Diet Order: Continue TF via PEG Nutrition Support: Osmolite 1.5 at 65 ml/hr. Flush 200 ml q4h. Kcal 2,340 Protein (gm) 98 Fluid (mL) 1,189 Goal #1 Meet at least 75% of pt's energy and protein needs via TF Goal #2 Weight maintenance Anticipated Discharge Needs: unable to determine at this time Follow-Up By: 03/17/20 Additional Comments F/U for TF tolerance
--- NOTE | 2020-03-16 14:08 | Progress Note ---
Assessment and Plan Patient admitted for acute hypoxic respiratory failure, S/P tracheostomy.Patient sleeping. Resting on assist control mechanical ventilation, rate 12 , Tidal volume 450, FIO2 30%, PEEP 6 and O2 saturation running 96%. No change in patients general condition from yesterday. ABG FIO2 30%. ABG pH 7.454 (7.320-7.450) H 03/12/20 04:45 POC ABG pCO2 45.6 mmHg (32.0-48.0) 03/12/20 04:45 ABG pCO2 47.8 mm Hg 02/20/20 06:45 POC ABG pO2 69.2 mmHg (83-108) L 03/12/20 04:45 ABG pO2 88.7 mm Hg (80.0-90.0) 02/20/20 06:45 POC ABG HCO3 31.3 03/12/20 04:45 ABG O2 Saturation 97.2 % (95.0-99.0) 02/20/20 06:45 Recommend spontaneous breathing trials. Patient afebrile. No leukocytosis. Chest xray done 03/10/20reported Mild CHF. Patient is on Apixaban and prevacid. I spent critical care time of 35 minutes on this patient review the chart, obtain history , examining the patient, review chest xray, labs, talking to the nursing staff and respiratory therapy and work out plan of treatment un this critically ill patient. - Patient Problems (1) Acute respiratory failure Current Visit: Yes Status: Acute Plan to address problem: Patient is on mechanical ventilation assist control , rate 12, Tidal volume 450, FIO2 30%, PEEP 6. Albuterol/atrovent aerosol treatments. Continue apixaban Continue prevacid. Recommend spontaneous breathing trials. (2) COPD exacerbation Current Visit: No Status: Acute Plan to address problem: Patient is on mechanical ventilation assist control , rate 12, Tidal volume 450, FIO2 30%, PEEP 6. Albuterol/atrovent aerosol treatments. Continue apixaban Continue prevacid. Recommend spontaneous breathing trials. (3) Bilateral pneumonia Current Visit: Yes Status: Acute Plan to address problem: Chest xray 03/10/20 reported CHF Patient afebrile. No leukocytosis. (4) CHF exacerbation Current Visit: Yes Status: Acute Plan to address problem: Management as per cardiology. (5) Cardiomyopathy Current Visit: Yes Status: Acute Plan to address problem: Management as per cardiology. (6) Pancreatic lesion Current Visit: Yes Status: Acute Plan to address problem: Management as per primary care. (7) Paroxysmal atrial fibrillation Current Visit: Yes Status: Acute Plan to address problem: Patient is on apixaban. Management as per cardiology. (8) CVA (cerebral vascular accident) Current Visit: No Status: Acute Qualifiers: Precerebral and cerebral artery: middle cerebral artery Laterality of affected vessel: right Plan to address problem: Management as per primary care. (9) Cocaine dependence Current Visit: No Status: Acute Plan to address problem: Management as per primary care. (10) HTN (hypertension) Current Visit: No Status: Acute Qualifiers: Hypertension type: essential hypertension Qualified Code(s): I10 - Essential (primary) hypertension Plan to address problem: Management as per primary care. (11) Nicotine dependence Current Visit: No Status: Acute Qualifiers: Nicotine product type: cigarettes Substance use status: in withdrawal Qualified Code(s): F17.213 - Nicotine dependence, cigarettes, with withdrawal Plan to address problem: Counseled to stop smoking. (12) Obesity hypoventilation syndrome Current Visit: No Status: Acute Plan to address problem: Patient S/P tracheostomy and on mechanical ventilation. Subjective Date of service: 03/16/20 Principal diagnosis: Ac hypoxemic resp failure; Pneumonia; PUI COVID-19; CHF; COPD; HTN Interval history: Patient admitted for acute hypoxic respiratory failure, S/P tracheostomy.Patient sleeping. Resting on assist control mechanical ventilation, rate 12 , Tidal volume 450, FIO2 30%, PEEP 6 and O2 saturation running 96%. No change in patients general condition from yesterday. ABG FIO2 30%. ABG pH 7.454 (7.320-7.450) H 03/12/20 04:45 POC ABG pCO2 45.6 mmHg (32.0-48.0) 03/12/20 04:45 ABG pCO2 47.8 mm Hg 02/20/20 06:45 POC ABG pO2 69.2 mmHg (83-108) L 03/12/20 04:45 ABG pO2 88.7 mm Hg (80.0-90.0) 02/20/20 06:45 POC ABG HCO3 31.3 03/12/20 04:45 ABG O2 Saturation 97.2 % (95.0-99.0) 02/20/20 06:45 Recommend spontaneous breathing trials. Patient afebrile. No leukocytosis. Chest xray done 03/10/20reported Mild CHF. Patient is on Apixaban and prevacid. Objective Vital Signs - 12hr 03/16/20 03/16/20 03/16/20 03:01 04:00 04:01 Temperature 97.4 F L Pulse Rate 142 H 129 H 127 H Pulse Rate [ 129 H From Monitor] Respiratory 20 17 20 Rate Blood Pressure 109/83 115/86 O2 Sat by Pulse 99 100 100 Oximetry O2 Sat by Pulse Oximetry [ Assessment] 03/16/20 03/16/20 03/16/20 04:17 05:01 06:01 Temperature Pulse Rate 131 H 135 H 150 H Pulse Rate [ From Monitor] Respiratory 19 18 Rate Blood Pressure 115/86 120/90 118/84 O2 Sat by Pulse 100 100 100 Oximetry O2 Sat by Pulse 100 Oximetry [ Assessment] 03/16/20 03/16/20 03/16/20 07:01 07:49 08:00 Temperature 97.8 F Pulse Rate 144 H 127 H 141 H Pulse Rate [ 141 H From Monitor] Respiratory 19 17 Rate Blood Pressure 114/76 114/76 O2 Sat by Pulse 100 100 100 Oximetry O2 Sat by Pulse Oximetry [ Assessment] 03/16/20 03/16/20 03/16/20 08:01 09:01 09:30 Temperature Pulse Rate 134 H 127 H 123 H Pulse Rate [ From Monitor] Respiratory 20 18 Rate Blood Pressure 124/75 114/76 106/79 O2 Sat by Pulse 91 Oximetry O2 Sat by Pulse Oximetry [ Assessment] 03/16/20 03/16/20 03/16/20 10:01 11:01 11:44 Temperature 97.6 F Pulse Rate 128 H 120 H Pulse Rate [ From Monitor] Respiratory 17 17 Rate Blood Pressure 108/67 101/70 O2 Sat by Pulse 96 96 Oximetry O2 Sat by Pulse Oximetry [ Assessment] 03/16/20 12:05 Temperature Pulse Rate 121 H Pulse Rate [ From Monitor] Respiratory Rate Blood Pressure 88/64 O2 Sat by Pulse 98 Oximetry O2 Sat by Pulse Oximetry [ Assessment] Constitutional: no acute distress, asleep Eyes: non-icteric ENT: oropharynx moist, other (+ midline tracheostomy) Neck: supple, no JVD Effort: mildly labored Ascultation: Bilateral: diminished breath sounds, rhonchi, other (tracheal secretions ) Percussion: Bilateral: not dull Cardiovascular: irregular rhythm Gastrointestinal: normoactive bowel sounds, soft, non-tender, non-distended (protuberant), other (protuberant; PEG in place) Integumentary: normal Extremities: no cyanosis, pulses normal, no ischemia or petechiae, edema (bilateral lower) Neurologic: non-focal exam (moves extremities), pupils equal and round, other (intermittent agitation) Psychiatric: other (Sleeping.) CBC and BMP: 03/15/20 04:05 03/15/20 04:05 ABG, PT/INR, D-dimer: ABG ABG pH 7.454 (7.320-7.450) H 03/12/20 04:45 POC ABG pCO2 45.6 mmHg (32.0-48.0) 03/12/20 04:45 ABG pCO2 47.8 mm Hg 02/20/20 06:45 POC ABG pO2 69.2 mmHg (83-108) L 03/12/20 04:45 ABG pO2 88.7 mm Hg (80.0-90.0) 02/20/20 06:45 POC ABG HCO3 31.3 03/12/20 04:45 ABG O2 Saturation 97.2 % (95.0-99.0) 02/20/20 06:45 PT/INR, D-dimer PT 27.0 Sec. (12.2-14.9) H 02/07/20 15:03 INR 2.46 (0.87-1.13) H 02/07/20 15:03 Abnormal lab findings: Abnormal Labs 11/24/19 11/24/19 11/24/19 02:53 02:53 03:45 WBC 14.3 H RBC Hgb Hct MCHC RDW 17.2 H MCV MCH Lymph % (Auto) [place] % (Auto) Canadian # Eos # Lymph # (Auto) [place] # (Auto) Eos # (Auto) Seg Neutrophils % Seg Neuts % (Manual) Baso # (Auto) Lymphocytes % (Manual) Monocytes % (Manual) Eosinophils % (Manual) Basophils % (Manual) Seg Neutrophils # Seg Neutrophils # Man 8.3 H Lymphocytes # (Manual) Monocytes # (Manual) 0.9 H Eosinophils # (Manual) Nucleated RBC % Basophils # (Manual) PT INR APTT Heparin Anti-Xa Level ABG pH 7.313 L POC ABG pO2 ABG pO2 102.8 H ABG HCO3 ABG O2 Saturation ABG Base Excess -2.9 L POC ABG pCO2 ABG Hemoglobin ABG Oxyhemoglobin ABG Sodium ABG Chloride ABG Glucose Oxyhemoglobin 93.9 L Sodium Potassium Chloride Carbon Dioxide BUN Creatinine Glucose 195 H POC Glucose Lactic Acid Calcium Phosphorus Magnesium AST ALT Lactate Dehydrogenase Total Bilirubin Direct Bilirubin CK-MB (CK-2) 4.3 H C-Reactive Protein NT-Pro-B Natriuret Pep 1181 H Total Protein Albumin Arterial Blood Glucose Urine WBC (Auto) Urine Creatinine 11/24/19 11/24/19 11/24/19 04:53 04:53 10:37 WBC RBC Hgb Hct MCHC RDW MCV MCH Lymph % (Auto) [place] % (Auto) [place] # Eos # Lymph # (Auto) [place] # (Auto) Eos # (Auto) Seg Neutrophils % Seg Neuts % (Manual) Baso # (Auto) Lymphocytes % (Manual) Monocytes % (Manual) Eosinophils % (Manual) Basophils % (Manual) Seg Neutrophils # Seg Neutrophils # Man Lymphocytes # (Manual) Monocytes # (Manual) Eosinophils # (Manual) Nucleated RBC % Basophils # (Manual) PT INR APTT Heparin Anti-Xa Level ABG pH POC ABG pO2 ABG pO2 ABG HCO3 ABG O2 Saturation ABG Base Excess POC ABG pCO2 ABG Hemoglobin ABG Oxyhemoglobin ABG Sodium ABG Chloride ABG Glucose Oxyhemoglobin Sodium Potassium Chloride Carbon Dioxide BUN Creatinine Glucose 162 H POC Glucose Lactic Acid 2.40 H* 2.50 H* Calcium Phosphorus Magnesium AST ALT Lactate Dehydrogenase 240 H Total Bilirubin Direct Bilirubin CK-MB (CK-2) C-Reactive Protein NT-Pro-B Natriuret Pep Total Protein Albumin Arterial Blood Glucose Urine WBC (Auto) Urine Creatinine 11/24/19 11/24/19 11/24/19 12:21 14:50 19:54 WBC RBC Hgb Hct MCHC RDW MCV MCH Lymph % (Auto) [place] % (Auto) [place] # Eos # Lymph # (Auto) [place] # (Auto) Eos # (Auto) Seg Neutrophils % Seg Neuts % (Manual) Baso # (Auto) Lymphocytes % (Manual) Monocytes % (Manual) Eosinophils % (Manual) Basophils % (Manual) Seg Neutrophils # Seg Neutrophils # Man Lymphocytes # (Manual) Monocytes # (Manual) Eosinophils # (Manual) Nucleated RBC % Basophils # (Manual) PT INR APTT Heparin Anti-Xa Level ABG pH POC ABG pO2 ABG pO2 ABG HCO3 ABG O2 Saturation ABG Base Excess POC ABG pCO2 ABG Hemoglobin ABG Oxyhemoglobin ABG Sodium ABG Chloride ABG Glucose Oxyhemoglobin Sodium Potassium Chloride Carbon Dioxide BUN Creatinine Glucose POC Glucose 145 H 143 H 124 H Lactic Acid Calcium Phosphorus Magnesium AST ALT Lactate Dehydrogenase Total Bilirubin Direct Bilirubin CK-MB (CK-2) C-Reactive Protein NT-Pro-B Natriuret Pep Total Protein Albumin Arterial Blood Glucose Urine WBC (Auto) Urine Creatinine 11/25/19 11/25/19 11/25/19 00:18 03:18 05:11 WBC 13.7 H RBC Hgb Hct MCHC RDW 17.1 H MCV MCH Lymph % (Auto) 10.8 L [place] % (Auto) 8.7 H [place] # 1.2 H Eos # Lymph # (Auto) [place] # (Auto) Eos # (Auto) Seg Neutrophils % 80.2 H Seg Neuts % (Manual) Baso # (Auto) Lymphocytes % (Manual) Monocytes % (Manual) Eosinophils % (Manual) Basophils % (Manual) Seg Neutrophils # 11.0 H Seg Neutrophils # Man Lymphocytes # (Manual) Monocytes # (Manual) Eosinophils # (Manual) Nucleated RBC % Basophils # (Manual) PT INR APTT Heparin Anti-Xa Level ABG pH 7.333 L POC ABG pO2 ABG pO2 61.2 L ABG HCO3 ABG O2 Saturation 90.2 L ABG Base Excess POC ABG pCO2 ABG Hemoglobin 13.7 L ABG Oxyhemoglobin ABG Sodium ABG Chloride ABG Glucose Oxyhemoglobin 88.2 L Sodium Potassium Chloride Carbon Dioxide BUN Creatinine Glucose POC Glucose 109 H Lactic Acid Calcium Phosphorus Magnesium AST ALT Lactate Dehydrogenase Total Bilirubin Direct Bilirubin CK-MB (CK-2) C-Reactive Protein NT-Pro-B Natriuret Pep Total Protein Albumin Arterial Blood Glucose Urine WBC (Auto) Urine Creatinine 11/25/19 11/25/19 11/26/19 05:11 11:40 03:12 WBC RBC Hgb Hct MCHC RDW MCV MCH Lymph % (Auto) [place] % (Auto) [place] # Eos # Lymph # (Auto) [place] # (Auto) Eos # (Auto) Seg Neutrophils % Seg Neuts % (Manual) Baso # (Auto) Lymphocytes % (Manual) Monocytes % (Manual) Eosinophils % (Manual) Basophils % (Manual) Seg Neutrophils # Seg Neutrophils # Man Lymphocytes # (Manual) Monocytes # (Manual) Eosinophils # (Manual) Nucleated RBC % Basophils # (Manual) PT INR APTT Heparin Anti-Xa Level ABG pH POC ABG pO2 ABG pO2 155.1 H ABG HCO3 27.8 H ABG O2 Saturation ABG Base Excess POC ABG pCO2 ABG Hemoglobin 12.2 L ABG Oxyhemoglobin ABG Sodium ABG Chloride ABG Glucose Oxyhemoglobin Sodium Potassium Chloride Carbon Dioxide BUN 23 H Creatinine Glucose 110 H POC Glucose 108 H Lactic Acid Calcium Phosphorus Magnesium AST ALT Lactate Dehydrogenase Total Bilirubin Direct Bilirubin CK-MB (CK-2) C-Reactive Protein NT-Pro-B Natriuret Pep Total Protein Albumin Arterial Blood Glucose Urine WBC (Auto) Urine Creatinine 11/26/19 11/26/19 11/26/19 06:17 10:43 10:43 WBC 11.4 H RBC Hgb Hct MCHC RDW 17.1 H MCV MCH Lymph % (Auto) [place] % (Auto) [place] # Eos # Lymph # (Auto) [place] # (Auto) Eos # (Auto) Seg Neutrophils % Seg Neuts % (Manual) Baso # (Auto) Lymphocytes % (Manual) Monocytes % (Manual) Eosinophils % (Manual) Basophils % (Manual) Seg Neutrophils # Seg Neutrophils # Man Lymphocytes # (Manual) Monocytes # (Manual) Eosinophils # (Manual) Nucleated RBC % Basophils # (Manual) PT INR APTT Heparin Anti-Xa Level ABG pH POC ABG pO2 ABG pO2 ABG HCO3 ABG O2 Saturation ABG Base Excess POC ABG pCO2 ABG Hemoglobin ABG Oxyhemoglobin ABG Sodium ABG Chloride ABG Glucose Oxyhemoglobin Sodium Potassium Chloride Carbon Dioxide BUN 29 H Creatinine Glucose POC Glucose 107 H Lactic Acid Calcium Phosphorus Magnesium AST ALT Lactate Dehydrogenase Total Bilirubin Direct Bilirubin CK-MB (CK-2) C-Reactive Protein NT-Pro-B Natriuret Pep Total Protein Albumin Arterial Blood Glucose Urine WBC (Auto) Urine Creatinine 11/26/19 11/27/19 11/27/19 17:11 01:53 04:11 WBC RBC Hgb Hct MCHC RDW MCV MCH Lymph % (Auto) [place] % (Auto) Canadian # Eos # Lymph # (Auto) [place] # (Auto) Eos # (Auto) Seg Neutrophils % Seg Neuts % (Manual) Baso # (Auto) Lymphocytes % (Manual) Monocytes % (Manual) Eosinophils % (Manual) Basophils % (Manual) Seg Neutrophils # Seg Neutrophils # Man Lymphocytes # (Manual) Monocytes # (Manual) Eosinophils # (Manual) Nucleated RBC % Basophils # (Manual) PT INR APTT Heparin Anti-Xa Level ABG pH POC ABG pO2 ABG pO2 ABG HCO3 29.2 H ABG O2 Saturation ABG Base Excess 3.4 H POC ABG pCO2 ABG Hemoglobin 13.3 L ABG Oxyhemoglobin ABG Sodium ABG Chloride ABG Glucose Oxyhemoglobin 94.5 L Sodium Potassium Chloride Carbon Dioxide BUN Creatinine Glucose POC Glucose 113 H 108 H Lactic Acid Calcium Phosphorus Magnesium AST ALT Lactate Dehydrogenase Total Bilirubin Direct Bilirubin CK-MB (CK-2) C-Reactive Protein NT-Pro-B Natriuret Pep Total Protein Albumin Arterial Blood Glucose Urine WBC (Auto) Urine Creatinine 11/27/19 11/28/19 11/28/19 05:27 05:00 05:25 WBC RBC Hgb Hct MCHC RDW MCV MCH Lymph % (Auto) [place] % (Auto) Canadian # Eos # Lymph # (Auto) [place] # (Auto) Eos # (Auto) Seg Neutrophils % Seg Neuts % (Manual) Baso # (Auto) Lymphocytes % (Manual) Monocytes % (Manual) Eosinophils % (Manual) Basophils % (Manual) Seg Neutrophils # Seg Neutrophils # Man Lymphocytes # (Manual) Monocytes # (Manual) Eosinophils # (Manual) Nucleated RBC % Basophils # (Manual) PT INR APTT Heparin Anti-Xa Level ABG pH POC ABG pO2 68.1 L ABG pO2 ABG HCO3 ABG O2 Saturation ABG Base Excess POC ABG pCO2 ABG Hemoglobin ABG Oxyhemoglobin 91.2 L ABG Sodium ABG Chloride ABG Glucose Oxyhemoglobin Sodium Potassium Chloride Carbon Dioxide BUN Creatinine Glucose POC Glucose 111 H 110 H Lactic Acid Calcium Phosphorus Magnesium AST ALT Lactate Dehydrogenase Total Bilirubin Direct Bilirubin CK-MB (CK-2) C-Reactive Protein NT-Pro-B Natriuret Pep Total Protein Albumin Arterial Blood Glucose Urine WBC (Auto) Urine Creatinine 11/28/19 11/28/19 11/28/19 12:08 13:47 13:47 WBC 11.3 H RBC Hgb Hct MCHC RDW 16.1 H MCV MCH Lymph % (Auto) [place] % (Auto) 9.9 H Canadian # 1.1 H Eos # Lymph # (Auto) [place] # (Auto) Eos # (Auto) Seg Neutrophils % 71.4 H Seg Neuts % (Manual) Baso # (Auto) Lymphocytes % (Manual) Monocytes % (Manual) Eosinophils % (Manual) Basophils % (Manual) Seg Neutrophils # 8.1 H Seg Neutrophils # Man Lymphocytes # (Manual) Monocytes # (Manual) Eosinophils # (Manual) Nucleated RBC % Basophils # (Manual) PT INR APTT Heparin Anti-Xa Level ABG pH POC ABG pO2 ABG pO2 ABG HCO3 ABG O2 Saturation ABG Base Excess POC ABG pCO2 ABG Hemoglobin ABG Oxyhemoglobin ABG Sodium ABG Chloride ABG Glucose Oxyhemoglobin Sodium Potassium Chloride Carbon Dioxide BUN 23 H Creatinine Glucose 123 H POC Glucose 112 H Lactic Acid Calcium Phosphorus Magnesium AST ALT Lactate Dehydrogenase Total Bilirubin Direct Bilirubin CK-MB (CK-2) C-Reactive Protein NT-Pro-B Natriuret Pep Total Protein Albumin 3.7 L Arterial Blood Glucose Urine WBC (Auto) Urine Creatinine 11/28/19 11/29/19 11/29/19 17:26 03:55 17:04 WBC RBC Hgb Hct MCHC RDW MCV MCH Lymph % (Auto) [place] % (Auto) Canadian # Eos # Lymph # (Auto) [place] # (Auto) Eos # (Auto) Seg Neutrophils % Seg Neuts % (Manual) Baso # (Auto) Lymphocytes % (Manual) Monocytes % (Manual) Eosinophils % (Manual) Basophils % (Manual) Seg Neutrophils # Seg Neutrophils # Man Lymphocytes # (Manual) Monocytes # (Manual) Eosinophils # (Manual) Nucleated RBC % Basophils # (Manual) PT INR APTT Heparin Anti-Xa Level ABG pH POC ABG pO2 ABG pO2 65.7 L ABG HCO3 28.3 H ABG O2 Saturation 93.9 L ABG Base Excess 3.6 H POC ABG pCO2 ABG Hemoglobin 13.3 L ABG Oxyhemoglobin ABG Sodium ABG Chloride ABG Glucose Oxyhemoglobin 91.5 L Sodium Potassium Chloride Carbon Dioxide BUN Creatinine Glucose POC Glucose 123 H 119 H Lactic Acid Calcium Phosphorus Magnesium AST ALT Lactate Dehydrogenase Total Bilirubin Direct Bilirubin CK-MB (CK-2) C-Reactive Protein NT-Pro-B Natriuret Pep Total Protein Albumin Arterial Blood Glucose Urine WBC (Auto) Urine Creatinine 11/30/19 11/30/19 11/30/19 04:17 04:17 04:56 WBC 13.4 H RBC Hgb Hct MCHC RDW 15.6 H MCV MCH Lymph % (Auto) [place] % (Auto) Canadian # Eos # Lymph # (Auto) [place] # (Auto) Eos # (Auto) Seg Neutrophils % Seg Neuts % (Manual) Baso # (Auto) Lymphocytes % (Manual) Monocytes % (Manual) Eosinophils % (Manual) Basophils % (Manual) Seg Neutrophils # Seg Neutrophils # Man Lymphocytes # (Manual) Monocytes # (Manual) Eosinophils # (Manual) Nucleated RBC % Basophils # (Manual) PT INR APTT Heparin Anti-Xa Level ABG pH POC ABG pO2 ABG pO2 56.3 L ABG HCO3 29.3 H ABG O2 Saturation 91.5 L ABG Base Excess 4.7 H POC ABG pCO2 ABG Hemoglobin 12.1 L ABG Oxyhemoglobin ABG Sodium ABG Chloride ABG Glucose Oxyhemoglobin 89.2 L Sodium 147 H Potassium Chloride Carbon Dioxide BUN 30 H Creatinine Glucose 124 H POC Glucose Lactic Acid Calcium Phosphorus Magnesium AST ALT Lactate Dehydrogenase Total Bilirubin Direct Bilirubin CK-MB (CK-2) C-Reactive Protein NT-Pro-B Natriuret Pep Total Protein Albumin 3.8 L Arterial Blood Glucose Urine WBC (Auto) Urine Creatinine 11/30/19 11/30/19 11/30/19 05:51 11:54 18:17 WBC RBC Hgb Hct MCHC RDW MCV MCH Lymph % (Auto) [place] % (Auto) Canadian # Eos # Lymph # (Auto) [place] # (Auto) Eos # (Auto) Seg Neutrophils % Seg Neuts % (Manual) Baso # (Auto) Lymphocytes % (Manual) Monocytes % (Manual) Eosinophils % (Manual) Basophils % (Manual) Seg Neutrophils # Seg Neutrophils # Man Lymphocytes # (Manual) Monocytes # (Manual) Eosinophils # (Manual) Nucleated RBC % Basophils # (Manual) PT INR APTT Heparin Anti-Xa Level ABG pH POC ABG pO2 ABG pO2 ABG HCO3 ABG O2 Saturation ABG Base Excess POC ABG pCO2 ABG Hemoglobin ABG Oxyhemoglobin ABG Sodium ABG Chloride ABG Glucose Oxyhemoglobin Sodium Potassium Chloride Carbon Dioxide BUN Creatinine Glucose POC Glucose 127 H 115 H 143 H Lactic Acid Calcium Phosphorus Magnesium AST ALT Lactate Dehydrogenase Total Bilirubin Direct Bilirubin CK-MB (CK-2) C-Reactive Protein NT-Pro-B Natriuret Pep Total Protein Albumin Arterial Blood Glucose Urine WBC (Auto) Urine Creatinine 12/01/19 12/01/19 12/01/19 01:18 05:22 12:16 WBC RBC Hgb Hct MCHC RDW MCV MCH Lymph % (Auto) [place] % (Auto) Canadian # Eos # Lymph # (Auto) [place] # (Auto) Eos # (Auto) Seg Neutrophils % Seg Neuts % (Manual) Baso # (Auto) Lymphocytes % (Manual) Monocytes % (Manual) Eosinophils % (Manual) Basophils % (Manual) Seg Neutrophils # Seg Neutrophils # Man Lymphocytes # (Manual) Monocytes # (Manual) Eosinophils # (Manual) Nucleated RBC % Basophils # (Manual) PT INR APTT Heparin Anti-Xa Level ABG pH POC ABG pO2 ABG pO2 ABG HCO3 ABG O2 Saturation ABG Base Excess POC ABG pCO2 ABG Hemoglobin ABG Oxyhemoglobin ABG Sodium ABG Chloride ABG Glucose Oxyhemoglobin Sodium Potassium 3.5 L Chloride 107.8 H Carbon Dioxide BUN 37 H Creatinine Glucose 157 H POC Glucose 118 H 148 H Lactic Acid Calcium 8.2 L D Phosphorus Magnesium AST 48 H ALT 60 H Lactate Dehydrogenase 194 H Total Bilirubin Direct Bilirubin CK-MB (CK-2) C-Reactive Protein 8.50 H NT-Pro-B Natriuret Pep Total Protein 5.5 L Albumin 2.8 L Arterial Blood Glucose Urine WBC (Auto) Urine Creatinine 12/01/19 12/02/19 12/02/19 18:04 00:05 05:16 WBC 11.4 H RBC Hgb Hct MCHC RDW 15.9 H MCV MCH Lymph % (Auto) [place] % (Auto) 9.9 H Canadian # 1.1 H Eos # Lymph # (Auto) [place] # (Auto) Eos # (Auto) Seg Neutrophils % 70.3 H Seg Neuts % (Manual) Baso # (Auto) Lymphocytes % (Manual) Monocytes % (Manual) Eosinophils % (Manual) Basophils % (Manual) Seg Neutrophils # 8.0 H Seg Neutrophils # Man Lymphocytes # (Manual) Monocytes # (Manual) Eosinophils # (Manual) Nucleated RBC % Basophils # (Manual) PT INR APTT Heparin Anti-Xa Level ABG pH POC ABG pO2 ABG pO2 ABG HCO3 ABG O2 Saturation ABG Base Excess POC ABG pCO2 ABG Hemoglobin ABG Oxyhemoglobin ABG Sodium ABG Chloride ABG Glucose Oxyhemoglobin Sodium Potassium Chloride Carbon Dioxide BUN Creatinine Glucose POC Glucose 143 H 107 H Lactic Acid Calcium Phosphorus Magnesium AST ALT Lactate Dehydrogenase Total Bilirubin Direct Bilirubin CK-MB (CK-2) C-Reactive Protein NT-Pro-B Natriuret Pep Total Protein Albumin Arterial Blood Glucose Urine WBC (Auto) Urine Creatinine 12/02/19 12/02/19 12/02/19 05:16 06:03 11:52 WBC RBC Hgb Hct MCHC RDW MCV MCH Lymph % (Auto) [place] % (Auto) Canadian # Eos # Lymph # (Auto) [place] # (Auto) Eos # (Auto) Seg Neutrophils % Seg Neuts % (Manual) Baso # (Auto) Lymphocytes % (Manual) Monocytes % (Manual) Eosinophils % (Manual) Basophils % (Manual) Seg Neutrophils # Seg Neutrophils # Man Lymphocytes # (Manual) Monocytes # (Manual) Eosinophils # (Manual) Nucleated RBC % Basophils # (Manual) PT INR APTT Heparin Anti-Xa Level ABG pH POC ABG pO2 ABG pO2 ABG HCO3 ABG O2 Saturation ABG Base Excess POC ABG pCO2 ABG Hemoglobin ABG Oxyhemoglobin ABG Sodium ABG Chloride ABG Glucose Oxyhemoglobin Sodium 146 H Potassium Chloride Carbon Dioxide BUN 28 H Creatinine Glucose 123 H POC Glucose 110 H 152 H Lactic Acid Calcium Phosphorus Magnesium AST ALT Lactate Dehydrogenase Total Bilirubin Direct Bilirubin CK-MB (CK-2) C-Reactive Protein NT-Pro-B Natriuret Pep Total Protein Albumin Arterial Blood Glucose Urine WBC (Auto) Urine Creatinine 12/02/19 12/02/19 12/02/19 12:58 17:58 23:36 WBC RBC Hgb Hct MCHC RDW MCV MCH Lymph % (Auto) [place] % (Auto) Canadian # Eos # Lymph # (Auto) [place] # (Auto) Eos # (Auto) Seg Neutrophils % Seg Neuts % (Manual) Baso # (Auto) Lymphocytes % (Manual) Monocytes % (Manual) Eosinophils % (Manual) Basophils % (Manual) Seg Neutrophils # Seg Neutrophils # Man Lymphocytes # (Manual) Monocytes # (Manual) Eosinophils # (Manual) Nucleated RBC % Basophils # (Manual) PT INR APTT Heparin Anti-Xa Level ABG pH POC ABG pO2 78.1 L ABG pO2 ABG HCO3 ABG O2 Saturation ABG Base Excess POC ABG pCO2 ABG Hemoglobin ABG Oxyhemoglobin ABG Sodium ABG Chloride ABG Glucose Oxyhemoglobin Sodium Potassium Chloride Carbon Dioxide BUN Creatinine Glucose POC Glucose 120 H 123 H Lactic Acid Calcium Phosphorus Magnesium AST ALT Lactate Dehydrogenase Total Bilirubin Direct Bilirubin CK-MB (CK-2) C-Reactive Protein NT-Pro-B Natriuret Pep Total Protein Albumin Arterial Blood Glucose Urine WBC (Auto) Urine Creatinine 12/03/19 12/03/19 12/03/19 06:03 06:14 11:46 WBC RBC Hgb Hct MCHC RDW MCV MCH Lymph % (Auto) [place] % (Auto) [place] # Eos # Lymph # (Auto) [place] # (Auto) Eos # (Auto) Seg Neutrophils % Seg Neuts % (Manual) Baso # (Auto) Lymphocytes % (Manual) Monocytes % (Manual) Eosinophils % (Manual) Basophils % (Manual) Seg Neutrophils # Seg Neutrophils # Man Lymphocytes # (Manual) Monocytes # (Manual) Eosinophils # (Manual) Nucleated RBC % Basophils # (Manual) PT INR APTT Heparin Anti-Xa Level ABG pH POC ABG pO2 ABG pO2 ABG HCO3 ABG O2 Saturation ABG Base Excess POC ABG pCO2 ABG Hemoglobin ABG Oxyhemoglobin ABG Sodium ABG Chloride ABG Glucose Oxyhemoglobin Sodium Potassium Chloride Carbon Dioxide BUN Creatinine Glucose POC Glucose 142 H 130 H Lactic Acid Calcium Phosphorus Magnesium AST ALT Lactate Dehydrogenase Total Bilirubin Direct Bilirubin CK-MB (CK-2) C-Reactive Protein NT-Pro-B Natriuret Pep Total Protein Albumin Arterial Blood Glucose Urine WBC (Auto) 8.0 H Urine Creatinine 12/03/19 12/03/19 12/04/19 15:50 17:39 00:04 WBC RBC Hgb Hct MCHC RDW MCV MCH Lymph % (Auto) [place] % (Auto) Canadian # Eos # Lymph # (Auto) [place] # (Auto) Eos # (Auto) Seg Neutrophils % Seg Neuts % (Manual) Baso # (Auto) Lymphocytes % (Manual) Monocytes % (Manual) Eosinophils % (Manual) Basophils % (Manual) Seg Neutrophils # Seg Neutrophils # Man Lymphocytes # (Manual) Monocytes # (Manual) Eosinophils # (Manual) Nucleated RBC % Basophils # (Manual) PT INR APTT Heparin Anti-Xa Level ABG pH POC ABG pO2 ABG pO2 ABG HCO3 ABG O2 Saturation ABG Base Excess POC ABG pCO2 ABG Hemoglobin ABG Oxyhemoglobin ABG Sodium ABG Chloride ABG Glucose Oxyhemoglobin Sodium Potassium Chloride Carbon Dioxide BUN Creatinine Glucose POC Glucose 146 H 133 H Lactic Acid Calcium Phosphorus 2.40 L Magnesium AST ALT Lactate Dehydrogenase Total Bilirubin Direct Bilirubin CK-MB (CK-2) C-Reactive Protein NT-Pro-B Natriuret Pep Total Protein Albumin Arterial Blood Glucose Urine WBC (Auto) Urine Creatinine 12/04/19 12/04/19 12/04/19 03:58 03:58 05:22 WBC 12.5 H RBC Hgb 11.2 L Hct 35.2 L MCHC RDW 16.0 H MCV MCH Lymph % (Auto) [place] % (Auto) 9.6 H Canadian # 1.2 H Eos # 0.5 H Lymph # (Auto) [place] # (Auto) Eos # (Auto) Seg Neutrophils % Seg Neuts % (Manual) Baso # (Auto) Lymphocytes % (Manual) Monocytes % (Manual) Eosinophils % (Manual) Basophils % (Manual) Seg Neutrophils # 8.6 H Seg Neutrophils # Man Lymphocytes # (Manual) Monocytes # (Manual) Eosinophils # (Manual) Nucleated RBC % Basophils # (Manual) PT INR APTT Heparin Anti-Xa Level ABG pH POC ABG pO2 ABG pO2 ABG HCO3 ABG O2 Saturation ABG Base Excess POC ABG pCO2 ABG Hemoglobin ABG Oxyhemoglobin ABG Sodium ABG Chloride ABG Glucose Oxyhemoglobin Sodium 146 H Potassium Chloride 108.6 H Carbon Dioxide BUN 30 H Creatinine 0.7 L Glucose 121 H POC Glucose 132 H Lactic Acid Calcium Phosphorus Magnesium AST ALT Lactate Dehydrogenase Total Bilirubin Direct Bilirubin CK-MB (CK-2) C-Reactive Protein NT-Pro-B Natriuret Pep Total Protein Albumin Arterial Blood Glucose Urine WBC (Auto) Urine Creatinine 12/04/19 12/04/19 12/05/19 13:26 18:43 00:19 WBC RBC Hgb Hct MCHC RDW MCV MCH Lymph % (Auto) [place] % (Auto) [place] # Eos # Lymph # (Auto) [place] # (Auto) Eos # (Auto) Seg Neutrophils % Seg Neuts % (Manual) Baso # (Auto) Lymphocytes % (Manual) Monocytes % (Manual) Eosinophils % (Manual) Basophils % (Manual) Seg Neutrophils # Seg Neutrophils # Man Lymphocytes # (Manual) Monocytes # (Manual) Eosinophils # (Manual) Nucleated RBC % Basophils # (Manual) PT INR APTT Heparin Anti-Xa Level ABG pH POC ABG pO2 ABG pO2 ABG HCO3 ABG O2 Saturation ABG Base Excess POC ABG pCO2 ABG Hemoglobin ABG Oxyhemoglobin ABG Sodium ABG Chloride ABG Glucose Oxyhemoglobin Sodium Potassium Chloride Carbon Dioxide BUN Creatinine Glucose POC Glucose 185 H 156 H 150 H Lactic Acid Calcium Phosphorus Magnesium AST ALT Lactate Dehydrogenase Total Bilirubin Direct Bilirubin CK-MB (CK-2) C-Reactive Protein NT-Pro-B Natriuret Pep Total Protein Albumin Arterial Blood Glucose Urine WBC (Auto) Urine Creatinine 12/05/19 12/05/19 12/05/19 03:37 03:37 05:14 WBC 16.3 H RBC Hgb 11.4 L Hct MCHC RDW 15.6 H MCV MCH Lymph % (Auto) 9.9 L [place] % (Auto) 9.7 H Canadian # 1.6 H Eos # Lymph # (Auto) [place] # (Auto) Eos # (Auto) Seg Neutrophils % 78.0 H Seg Neuts % (Manual) Baso # (Auto) Lymphocytes % (Manual) Monocytes % (Manual) Eosinophils % (Manual) Basophils % (Manual) Seg Neutrophils # 12.7 H Seg Neutrophils # Man Lymphocytes # (Manual) Monocytes # (Manual) Eosinophils # (Manual) Nucleated RBC % Basophils # (Manual) PT INR APTT Heparin Anti-Xa Level ABG pH POC ABG pO2 ABG pO2 ABG HCO3 ABG O2 Saturation ABG Base Excess POC ABG pCO2 ABG Hemoglobin ABG Oxyhemoglobin ABG Sodium ABG Chloride ABG Glucose Oxyhemoglobin Sodium 146 H Potassium Chloride 107.2 H Carbon Dioxide BUN 27 H Creatinine 0.7 L Glucose 171 H POC Glucose 168 H Lactic Acid Calcium Phosphorus Magnesium AST ALT Lactate Dehydrogenase Total Bilirubin Direct Bilirubin CK-MB (CK-2) C-Reactive Protein NT-Pro-B Natriuret Pep Total Protein Albumin Arterial Blood Glucose Urine WBC (Auto) Urine Creatinine 12/05/19 12/05/19 12/05/19 12:31 18:10 23:58 WBC RBC Hgb Hct MCHC RDW MCV MCH Lymph % (Auto) [place] % (Auto) [place] # Eos # Lymph # (Auto) [place] # (Auto) Eos # (Auto) Seg Neutrophils % Seg Neuts % (Manual) Baso # (Auto) Lymphocytes % (Manual) Monocytes % (Manual) Eosinophils % (Manual) Basophils % (Manual) Seg Neutrophils # Seg Neutrophils # Man Lymphocytes # (Manual) Monocytes # (Manual) Eosinophils # (Manual) Nucleated RBC % Basophils # (Manual) PT INR APTT Heparin Anti-Xa Level ABG pH POC ABG pO2 ABG pO2 ABG HCO3 ABG O2 Saturation ABG Base Excess POC ABG pCO2 ABG Hemoglobin ABG Oxyhemoglobin ABG Sodium ABG Chloride ABG Glucose Oxyhemoglobin Sodium Potassium Chloride Carbon Dioxide BUN Creatinine Glucose POC Glucose 159 H 198 H 115 H Lactic Acid Calcium Phosphorus Magnesium AST ALT Lactate Dehydrogenase Total Bilirubin Direct Bilirubin CK-MB (CK-2) C-Reactive Protein NT-Pro-B Natriuret Pep Total Protein Albumin Arterial Blood Glucose Urine WBC (Auto) Urine Creatinine 12/06/19 12/06/19 12/06/19 05:24 05:24 05:25 WBC 14.9 H RBC Hgb 10.8 L Hct 34.0 L MCHC RDW 15.6 H MCV MCH Lymph % (Auto) 10.7 L [place] % (Auto) 8.3 H Canadian # 1.2 H Eos # Lymph # (Auto) [place] # (Auto) Eos # (Auto) Seg Neutrophils % 78.7 H Seg Neuts % (Manual) Baso # (Auto) Lymphocytes % (Manual) Monocytes % (Manual) Eosinophils % (Manual) Basophils % (Manual) Seg Neutrophils # 11.7 H Seg Neutrophils # Man Lymphocytes # (Manual) Monocytes # (Manual) Eosinophils # (Manual) Nucleated RBC % Basophils # (Manual) PT INR APTT Heparin Anti-Xa Level ABG pH POC ABG pO2 ABG pO2 ABG HCO3 ABG O2 Saturation ABG Base Excess POC ABG pCO2 ABG Hemoglobin ABG Oxyhemoglobin ABG Sodium ABG Chloride ABG Glucose Oxyhemoglobin Sodium 148 H Potassium 5.1 H Chloride 107.6 H Carbon Dioxide BUN 27 H Creatinine 0.7 L Glucose 155 H POC Glucose 157 H Lactic Acid Calcium Phosphorus Magnesium AST ALT Lactate Dehydrogenase Total Bilirubin Direct Bilirubin CK-MB (CK-2) C-Reactive Protein NT-Pro-B Natriuret Pep Total Protein Albumin Arterial Blood Glucose Urine WBC (Auto) Urine Creatinine 12/07/19 12/07/19 12/07/19 00:13 05:34 11:33 WBC RBC Hgb Hct MCHC RDW MCV MCH Lymph % (Auto) [place] % (Auto) [place] # Eos # Lymph # (Auto) [place] # (Auto) Eos # (Auto) Seg Neutrophils % Seg Neuts % (Manual) Baso # (Auto) Lymphocytes % (Manual) Monocytes % (Manual) Eosinophils % (Manual) Basophils % (Manual) Seg Neutrophils # Seg Neutrophils # Man Lymphocytes # (Manual) Monocytes # (Manual) Eosinophils # (Manual) Nucleated RBC % Basophils # (Manual) PT INR APTT Heparin Anti-Xa Level ABG pH POC ABG pO2 ABG pO2 ABG HCO3 ABG O2 Saturation ABG Base Excess POC ABG pCO2 ABG Hemoglobin ABG Oxyhemoglobin ABG Sodium ABG Chloride ABG Glucose Oxyhemoglobin Sodium Potassium Chloride Carbon Dioxide BUN Creatinine Glucose POC Glucose 142 H 111 H 169 H Lactic Acid Calcium Phosphorus Magnesium AST ALT Lactate Dehydrogenase Total Bilirubin Direct Bilirubin CK-MB (CK-2) C-Reactive Protein NT-Pro-B Natriuret Pep Total Protein Albumin Arterial Blood Glucose Urine WBC (Auto) Urine Creatinine 12/07/19 12/07/19 12/07/19 12:41 13:25 18:19 WBC 12.4 H RBC 3.53 L Hgb 10.2 L Hct 32.1 L MCHC RDW 15.3 H MCV MCH Lymph % (Auto) 10.6 L [place] % (Auto) 7.8 H Canadian # 1.0 H Eos # Lymph # (Auto) [place] # (Auto) Eos # (Auto) Seg Neutrophils % 77.6 H Seg Neuts % (Manual) Baso # (Auto) Lymphocytes % (Manual) Monocytes % (Manual) Eosinophils % (Manual) Basophils % (Manual) Seg Neutrophils # 9.6 H Seg Neutrophils # Man Lymphocytes # (Manual) Monocytes # (Manual) Eosinophils # (Manual) Nucleated RBC % Basophils # (Manual) PT INR APTT Heparin Anti-Xa Level ABG pH POC ABG pO2 ABG pO2 ABG HCO3 ABG O2 Saturation ABG Base Excess POC ABG pCO2 ABG Hemoglobin ABG Oxyhemoglobin ABG Sodium ABG Chloride ABG Glucose Oxyhemoglobin Sodium 149 H Potassium Chloride 108.4 H Carbon Dioxide BUN 26 H Creatinine 0.6 L Glucose 149 H POC Glucose 164 H Lactic Acid Calcium Phosphorus Magnesium 2.60 H AST 121 H ALT 145 H Lactate Dehydrogenase Total Bilirubin Direct Bilirubin CK-MB (CK-2) C-Reactive Protein NT-Pro-B Natriuret Pep Total Protein Albumin 2.6 L Arterial Blood Glucose Urine WBC (Auto) Urine Creatinine 12/07/19 12/08/19 12/08/19 22:25 00:02 03:55 WBC 13.3 H RBC 3.40 L Hgb 9.7 L Hct 30.8 L MCHC 31 L RDW 15.5 H MCV MCH Lymph % (Auto) [place] % (Auto) 8.1 H Canadian # 1.1 H Eos # Lymph # (Auto) [place] # (Auto) Eos # (Auto) Seg Neutrophils % 73.0 H Seg Neuts % (Manual) Baso # (Auto) Lymphocytes % (Manual) Monocytes % (Manual) Eosinophils % (Manual) Basophils % (Manual) Seg Neutrophils # 9.7 H Seg Neutrophils # Man Lymphocytes # (Manual) Monocytes # (Manual) Eosinophils # (Manual) Nucleated RBC % Basophils # (Manual) PT INR APTT Heparin Anti-Xa Level 0.12 L ABG pH POC ABG pO2 ABG pO2 ABG HCO3 ABG O2 Saturation ABG Base Excess POC ABG pCO2 ABG Hemoglobin ABG Oxyhemoglobin ABG Sodium ABG Chloride ABG Glucose Oxyhemoglobin Sodium Potassium Chloride Carbon Dioxide BUN Creatinine Glucose POC Glucose 151 H Lactic Acid Calcium Phosphorus Magnesium AST ALT Lactate Dehydrogenase Total Bilirubin Direct Bilirubin CK-MB (CK-2) C-Reactive Protein NT-Pro-B Natriuret Pep Total Protein Albumin Arterial Blood Glucose Urine WBC (Auto) Urine Creatinine 12/08/19 12/08/19 12/08/19 03:55 05:21 06:01 WBC RBC Hgb Hct MCHC RDW MCV MCH Lymph % (Auto) [place] % (Auto) [place] # Eos # Lymph # (Auto) [place] # (Auto) Eos # (Auto) Seg Neutrophils % Seg Neuts % (Manual) Baso # (Auto) Lymphocytes % (Manual) Monocytes % (Manual) Eosinophils % (Manual) Basophils % (Manual) Seg Neutrophils # Seg Neutrophils # Man Lymphocytes # (Manual) Monocytes # (Manual) Eosinophils # (Manual) Nucleated RBC % Basophils # (Manual) PT INR APTT Heparin Anti-Xa Level 0.20 L ABG pH POC ABG pO2 ABG pO2 ABG HCO3 ABG O2 Saturation ABG Base Excess POC ABG pCO2 ABG Hemoglobin ABG Oxyhemoglobin ABG Sodium ABG Chloride ABG Glucose Oxyhemoglobin Sodium 149 H Potassium Chloride 108.0 H Carbon Dioxide BUN 28 H Creatinine 0.6 L Glucose 144 H POC Glucose 143 H Lactic Acid Calcium Phosphorus Magnesium AST 98 H ALT 145 H Lactate Dehydrogenase Total Bilirubin Direct Bilirubin CK-MB (CK-2) C-Reactive Protein NT-Pro-B Natriuret Pep Total Protein 6.0 L Albumin 2.4 L Arterial Blood Glucose Urine WBC (Auto) Urine Creatinine 12/08/19 12/08/19 12/08/19 12:08 18:11 23:53 WBC RBC Hgb Hct MCHC RDW MCV MCH Lymph % (Auto) [place] % (Auto) Canadian # Eos # Lymph # (Auto) [place] # (Auto) Eos # (Auto) Seg Neutrophils % Seg Neuts % (Manual) Baso # (Auto) Lymphocytes % (Manual) Monocytes % (Manual) Eosinophils % (Manual) Basophils % (Manual) Seg Neutrophils # Seg Neutrophils # Man Lymphocytes # (Manual) Monocytes # (Manual) Eosinophils # (Manual) Nucleated RBC % Basophils # (Manual) PT INR APTT Heparin Anti-Xa Level ABG pH POC ABG pO2 ABG pO2 ABG HCO3 ABG O2 Saturation ABG Base Excess POC ABG pCO2 ABG Hemoglobin ABG Oxyhemoglobin ABG Sodium ABG Chloride ABG Glucose Oxyhemoglobin Sodium Potassium Chloride Carbon Dioxide BUN Creatinine Glucose POC Glucose 172 H 122 H 162 H Lactic Acid Calcium Phosphorus Magnesium AST ALT Lactate Dehydrogenase Total Bilirubin Direct Bilirubin CK-MB (CK-2) C-Reactive Protein NT-Pro-B Natriuret Pep Total Protein Albumin Arterial Blood Glucose Urine WBC (Auto) Urine Creatinine 12/09/19 12/09/19 12/09/19 04:03 04:03 05:53 WBC RBC Hgb 9.1 L Hct 28.9 L MCHC RDW MCV MCH Lymph % (Auto) [place] % (Auto) Canadian # Eos # Lymph # (Auto) [place] # (Auto) Eos # (Auto) Seg Neutrophils % Seg Neuts % (Manual) Baso # (Auto) Lymphocytes % (Manual) Monocytes % (Manual) Eosinophils % (Manual) Basophils % (Manual) Seg Neutrophils # Seg Neutrophils # Man Lymphocytes # (Manual) Monocytes # (Manual) Eosinophils # (Manual) Nucleated RBC % Basophils # (Manual) PT INR APTT Heparin Anti-Xa Level 0.15 L ABG pH POC ABG pO2 ABG pO2 ABG HCO3 ABG O2 Saturation ABG Base Excess POC ABG pCO2 ABG Hemoglobin ABG Oxyhemoglobin ABG Sodium ABG Chloride ABG Glucose Oxyhemoglobin Sodium Potassium Chloride Carbon Dioxide BUN Creatinine Glucose POC Glucose 124 H Lactic Acid Calcium Phosphorus Magnesium AST ALT Lactate Dehydrogenase Total Bilirubin Direct Bilirubin CK-MB (CK-2) C-Reactive Protein NT-Pro-B Natriuret Pep Total Protein Albumin Arterial Blood Glucose Urine WBC (Auto) Urine Creatinine 12/09/19 12/09/19 12/10/19 09:43 12:41 00:13 WBC RBC Hgb Hct MCHC RDW MCV MCH Lymph % (Auto) [place] % (Auto) Canadian # Eos # Lymph # (Auto) [place] # (Auto) Eos # (Auto) Seg Neutrophils % Seg Neuts % (Manual) Baso # (Auto) Lymphocytes % (Manual) Monocytes % (Manual) Eosinophils % (Manual) Basophils % (Manual) Seg Neutrophils # Seg Neutrophils # Man Lymphocytes # (Manual) Monocytes # (Manual) Eosinophils # (Manual) Nucleated RBC % Basophils # (Manual) PT INR APTT Heparin Anti-Xa Level ABG pH POC ABG pO2 ABG pO2 ABG HCO3 ABG O2 Saturation ABG Base Excess POC ABG pCO2 ABG Hemoglobin ABG Oxyhemoglobin ABG Sodium ABG Chloride ABG Glucose Oxyhemoglobin Sodium Potassium Chloride Carbon Dioxide BUN 25 H Creatinine 0.6 L Glucose 131 H POC Glucose 109 H 120 H Lactic Acid Calcium Phosphorus Magnesium AST ALT Lactate Dehydrogenase Total Bilirubin Direct Bilirubin CK-MB (CK-2) C-Reactive Protein NT-Pro-B Natriuret Pep Total Protein Albumin Arterial Blood Glucose Urine WBC (Auto) Urine Creatinine 12/10/19 12/10/19 12/10/19 04:14 04:14 12:00 WBC 13.3 H RBC 3.34 L Hgb 9.6 L Hct 30.4 L MCHC RDW 15.4 H MCV MCH Lymph % (Auto) [place] % (Auto) Canadian # Eos # Lymph # (Auto) [place] # (Auto) Eos # (Auto) Seg Neutrophils % Seg Neuts % (Manual) 75.0 H Baso # (Auto) Lymphocytes % (Manual) 13.0 L Monocytes % (Manual) 8.0 H Eosinophils % (Manual) Basophils % (Manual) 2.0 H Seg Neutrophils # Seg Neutrophils # Man 10.0 H Lymphocytes # (Manual) Monocytes # (Manual) 1.1 H Eosinophils # (Manual) Nucleated RBC % Basophils # (Manual) 0.3 H PT INR APTT Heparin Anti-Xa Level ABG pH POC ABG pO2 ABG pO2 ABG HCO3 ABG O2 Saturation ABG Base Excess POC ABG pCO2 ABG Hemoglobin ABG Oxyhemoglobin ABG Sodium ABG Chloride ABG Glucose Oxyhemoglobin Sodium 147 H Potassium Chloride 108.3 H Carbon Dioxide BUN 21 H Creatinine 0.6 L Glucose 104 H POC Glucose 133 H Lactic Acid Calcium Phosphorus Magnesium AST ALT Lactate Dehydrogenase Total Bilirubin Direct Bilirubin CK-MB (CK-2) C-Reactive Protein NT-Pro-B Natriuret Pep Total Protein Albumin Arterial Blood Glucose Urine WBC (Auto) Urine Creatinine 12/10/19 12/10/19 12/11/19 18:44 21:20 00:08 WBC 14.9 H RBC 3.36 L Hgb 9.6 L Hct 30.5 L MCHC RDW 15.4 H MCV MCH Lymph % (Auto) [place] % (Auto) Canadian # Eos # Lymph # (Auto) [place] # (Auto) Eos # (Auto) Seg Neutrophils % Seg Neuts % (Manual) Baso # (Auto) Lymphocytes % (Manual) Monocytes % (Manual) Eosinophils % (Manual) Basophils % (Manual) Seg Neutrophils # Seg Neutrophils # Man Lymphocytes # (Manual) Monocytes # (Manual) Eosinophils # (Manual) Nucleated RBC % Basophils # (Manual) PT INR APTT Heparin Anti-Xa Level ABG pH POC ABG pO2 ABG pO2 ABG HCO3 ABG O2 Saturation ABG Base Excess POC ABG pCO2 ABG Hemoglobin ABG Oxyhemoglobin ABG Sodium ABG Chloride ABG Glucose Oxyhemoglobin Sodium Potassium Chloride Carbon Dioxide BUN Creatinine Glucose POC Glucose 119 H 134 H Lactic Acid Calcium Phosphorus Magnesium AST ALT Lactate Dehydrogenase Total Bilirubin Direct Bilirubin CK-MB (CK-2) C-Reactive Protein NT-Pro-B Natriuret Pep Total Protein Albumin Arterial Blood Glucose Urine WBC (Auto) Urine Creatinine 12/11/19 12/11/19 12/11/19 03:54 07:28 08:36 WBC 11.9 H RBC 3.25 L Hgb 9.6 L Hct 29.2 L MCHC RDW 15.7 H MCV MCH Lymph % (Auto) [place] % (Auto) [place] # Eos # Lymph # (Auto) [place] # (Auto) Eos # (Auto) Seg Neutrophils % Seg Neuts % (Manual) Baso # (Auto) Lymphocytes % (Manual) Monocytes % (Manual) Eosinophils % (Manual) Basophils % (Manual) Seg Neutrophils # Seg Neutrophils # Man Lymphocytes # (Manual) Monocytes # (Manual) Eosinophils # (Manual) Nucleated RBC % Basophils # (Manual) PT INR APTT Heparin Anti-Xa Level 0.10 L 0.16 L ABG pH POC ABG pO2 ABG pO2 ABG HCO3 ABG O2 Saturation ABG Base Excess POC ABG pCO2 ABG Hemoglobin ABG Oxyhemoglobin ABG Sodium ABG Chloride ABG Glucose Oxyhemoglobin Sodium Potassium Chloride Carbon Dioxide BUN Creatinine Glucose POC Glucose Lactic Acid Calcium Phosphorus Magnesium AST ALT Lactate Dehydrogenase Total Bilirubin Direct Bilirubin CK-MB (CK-2) C-Reactive Protein NT-Pro-B Natriuret Pep Total Protein Albumin Arterial Blood Glucose Urine WBC (Auto) Urine Creatinine 12/11/19 12/11/19 12/11/19 08:36 11:45 17:15 WBC RBC Hgb Hct MCHC RDW MCV MCH Lymph % (Auto) [place] % (Auto) [place] # Eos # Lymph # (Auto) [place] # (Auto) Eos # (Auto) Seg Neutrophils % Seg Neuts % (Manual) Baso # (Auto) Lymphocytes % (Manual) Monocytes % (Manual) Eosinophils % (Manual) Basophils % (Manual) Seg Neutrophils # Seg Neutrophils # Man Lymphocytes # (Manual) Monocytes # (Manual) Eosinophils # (Manual) Nucleated RBC % Basophils # (Manual) PT INR APTT Heparin Anti-Xa Level ABG pH POC ABG pO2 ABG pO2 ABG HCO3 ABG O2 Saturation ABG Base Excess POC ABG pCO2 ABG Hemoglobin ABG Oxyhemoglobin ABG Sodium ABG Chloride ABG Glucose Oxyhemoglobin Sodium Potassium Chloride Carbon Dioxide BUN Creatinine 0.5 L Glucose 128 H POC Glucose 136 H 109 H Lactic Acid Calcium Phosphorus Magnesium AST ALT Lactate Dehydrogenase Total Bilirubin Direct Bilirubin CK-MB (CK-2) C-Reactive Protein NT-Pro-B Natriuret Pep Total Protein Albumin Arterial Blood Glucose Urine WBC (Auto) Urine Creatinine 12/12/19 12/12/19 12/12/19 00:03 05:53 05:53 WBC RBC Hgb 8.8 L Hct 27.6 L MCHC RDW MCV MCH Lymph % (Auto) [place] % (Auto) [place] # Eos # Lymph # (Auto) [place] # (Auto) Eos # (Auto) Seg Neutrophils % Seg Neuts % (Manual) Baso # (Auto) Lymphocytes % (Manual) Monocytes % (Manual) Eosinophils % (Manual) Basophils % (Manual) Seg Neutrophils # Seg Neutrophils # Man Lymphocytes # (Manual) Monocytes # (Manual) Eosinophils # (Manual) Nucleated RBC % Basophils # (Manual) PT INR APTT Heparin Anti-Xa Level 0.22 L ABG pH POC ABG pO2 ABG pO2 ABG HCO3 ABG O2 Saturation ABG Base Excess POC ABG pCO2 ABG Hemoglobin ABG Oxyhemoglobin ABG Sodium ABG Chloride ABG Glucose Oxyhemoglobin Sodium Potassium Chloride Carbon Dioxide BUN Creatinine Glucose POC Glucose 116 H Lactic Acid Calcium Phosphorus Magnesium AST ALT Lactate Dehydrogenase Total Bilirubin Direct Bilirubin CK-MB (CK-2) C-Reactive Protein NT-Pro-B Natriuret Pep Total Protein Albumin Arterial Blood Glucose Urine WBC (Auto) Urine Creatinine 12/12/19 12/12/19 12/12/19 09:38 12:18 17:44 WBC RBC Hgb Hct MCHC RDW MCV MCH Lymph % (Auto) [place] % (Auto) [place] # Eos # Lymph # (Auto) [place] # (Auto) Eos # (Auto) Seg Neutrophils % Seg Neuts % (Manual) Baso # (Auto) Lymphocytes % (Manual) Monocytes % (Manual) Eosinophils % (Manual) Basophils % (Manual) Seg Neutrophils # Seg Neutrophils # Man Lymphocytes # (Manual) Monocytes # (Manual) Eosinophils # (Manual) Nucleated RBC % Basophils # (Manual) PT INR APTT Heparin Anti-Xa Level ABG pH POC ABG pO2 ABG pO2 ABG HCO3 ABG O2 Saturation ABG Base Excess POC ABG pCO2 ABG Hemoglobin ABG Oxyhemoglobin ABG Sodium ABG Chloride ABG Glucose Oxyhemoglobin Sodium Potassium Chloride Carbon Dioxide BUN Creatinine Glucose POC Glucose 115 H 146 H 146 H Lactic Acid Calcium Phosphorus Magnesium AST ALT Lactate Dehydrogenase Total Bilirubin Direct Bilirubin CK-MB (CK-2) C-Reactive Protein NT-Pro-B Natriuret Pep Total Protein Albumin Arterial Blood Glucose Urine WBC (Auto) Urine Creatinine 12/12/19 12/13/19 12/13/19 23:33 05:32 05:32 WBC 13.1 H RBC 3.27 L Hgb 9.5 L Hct 29.3 L MCHC RDW 15.6 H MCV MCH Lymph % (Auto) [place] % (Auto) [place] # Eos # Lymph # (Auto) [place] # (Auto) Eos # (Auto) Seg Neutrophils % Seg Neuts % (Manual) 74.0 H Baso # (Auto) Lymphocytes % (Manual) 8.0 L Monocytes % (Manual) 9.0 H Eosinophils % (Manual) 5.0 H Basophils % (Manual) Seg Neutrophils # Seg Neutrophils # Man 9.7 H Lymphocytes # (Manual) 1.0 L Monocytes # (Manual) 1.2 H Eosinophils # (Manual) 0.7 H Nucleated RBC % Basophils # (Manual) PT INR APTT Heparin Anti-Xa Level 0.20 L ABG pH POC ABG pO2 ABG pO2 ABG HCO3 ABG O2 Saturation ABG Base Excess POC ABG pCO2 ABG Hemoglobin ABG Oxyhemoglobin ABG Sodium ABG Chloride ABG Glucose Oxyhemoglobin Sodium Potassium Chloride Carbon Dioxide BUN Creatinine Glucose POC Glucose 126 H Lactic Acid Calcium Phosphorus Magnesium AST ALT Lactate Dehydrogenase Total Bilirubin Direct Bilirubin CK-MB (CK-2) C-Reactive Protein NT-Pro-B Natriuret Pep Total Protein Albumin Arterial Blood Glucose Urine WBC (Auto) Urine Creatinine 12/13/19 12/13/19 12/13/19 05:32 05:46 11:57 WBC RBC Hgb Hct MCHC RDW MCV MCH Lymph % (Auto) [place] % (Auto) [place] # Eos # Lymph # (Auto) [place] # (Auto) Eos # (Auto) Seg Neutrophils % Seg Neuts % (Manual) Baso # (Auto) Lymphocytes % (Manual) Monocytes % (Manual) Eosinophils % (Manual) Basophils % (Manual) Seg Neutrophils # Seg Neutrophils # Man Lymphocytes # (Manual) Monocytes # (Manual) Eosinophils # (Manual) Nucleated RBC % Basophils # (Manual) PT INR APTT Heparin Anti-Xa Level ABG pH POC ABG pO2 ABG pO2 ABG HCO3 ABG O2 Saturation ABG Base Excess POC ABG pCO2 ABG Hemoglobin ABG Oxyhemoglobin ABG Sodium ABG Chloride ABG Glucose Oxyhemoglobin Sodium Potassium Chloride Carbon Dioxide 31 H BUN Creatinine 0.6 L Glucose 114 H POC Glucose 118 H 133 H Lactic Acid Calcium Phosphorus Magnesium AST ALT Lactate Dehydrogenase Total Bilirubin Direct Bilirubin CK-MB (CK-2) C-Reactive Protein NT-Pro-B Natriuret Pep Total Protein Albumin Arterial Blood Glucose Urine WBC (Auto) Urine Creatinine 12/13/19 12/13/19 12/14/19 17:44 23:46 05:32 WBC RBC Hgb Hct MCHC RDW MCV MCH Lymph % (Auto) [place] % (Auto) [place] # Eos # Lymph # (Auto) [place] # (Auto) Eos # (Auto) Seg Neutrophils % Seg Neuts % (Manual) Baso # (Auto) Lymphocytes % (Manual) Monocytes % (Manual) Eosinophils % (Manual) Basophils % (Manual) Seg Neutrophils # Seg Neutrophils # Man Lymphocytes # (Manual) Monocytes # (Manual) Eosinophils # (Manual) Nucleated RBC % Basophils # (Manual) PT INR APTT Heparin Anti-Xa Level ABG pH POC ABG pO2 ABG pO2 ABG HCO3 ABG O2 Saturation ABG Base Excess POC ABG pCO2 ABG Hemoglobin ABG Oxyhemoglobin ABG Sodium ABG Chloride ABG Glucose Oxyhemoglobin Sodium Potassium Chloride Carbon Dioxide BUN Creatinine Glucose POC Glucose 161 H 126 H 139 H Lactic Acid Calcium Phosphorus Magnesium AST ALT Lactate Dehydrogenase Total Bilirubin Direct Bilirubin CK-MB (CK-2) C-Reactive Protein NT-Pro-B Natriuret Pep Total Protein Albumin Arterial Blood Glucose Urine WBC (Auto) Urine Creatinine 12/14/19 12/14/19 12/14/19 06:03 06:03 09:37 WBC RBC Hgb 9.6 L Hct 30.4 L MCHC RDW MCV MCH Lymph % (Auto) [place] % (Auto) [place] # Eos # Lymph # (Auto) [place] # (Auto) Eos # (Auto) Seg Neutrophils % Seg Neuts % (Manual) Baso # (Auto) Lymphocytes % (Manual) Monocytes % (Manual) Eosinophils % (Manual) Basophils % (Manual) Seg Neutrophils # Seg Neutrophils # Man Lymphocytes # (Manual) Monocytes # (Manual) Eosinophils # (Manual) Nucleated RBC % Basophils # (Manual) PT INR APTT Heparin Anti-Xa Level 0.24 L ABG pH POC ABG pO2 ABG pO2 ABG HCO3 ABG O2 Saturation ABG Base Excess POC ABG pCO2 ABG Hemoglobin ABG Oxyhemoglobin ABG Sodium ABG Chloride ABG Glucose Oxyhemoglobin Sodium Potassium Chloride Carbon Dioxide BUN Creatinine 0.6 L Glucose 162 H POC Glucose Lactic Acid Calcium Phosphorus Magnesium AST 71 H ALT 118 H Lactate Dehydrogenase Total Bilirubin Direct Bilirubin CK-MB (CK-2) C-Reactive Protein NT-Pro-B Natriuret Pep Total Protein 6.2 L Albumin 2.3 L Arterial Blood Glucose Urine WBC (Auto) Urine Creatinine 12/14/19 12/14/19 12/15/19 12:06 18:18 00:19 WBC RBC Hgb Hct MCHC RDW MCV MCH Lymph % (Auto) Canadian % (Auto) Canadian # Eos # Lymph # (Auto) [place] # (Auto) Eos # (Auto) Seg Neutrophils % Seg Neuts % (Manual) Baso # (Auto) Lymphocytes % (Manual) Monocytes % (Manual) Eosinophils % (Manual) Basophils % (Manual) Seg Neutrophils # Seg Neutrophils # Man Lymphocytes # (Manual) Monocytes # (Manual) Eosinophils # (Manual) Nucleated RBC % Basophils # (Manual) PT INR APTT Heparin Anti-Xa Level ABG pH POC ABG pO2 ABG pO2 ABG HCO3 ABG O2 Saturation ABG Base Excess POC ABG pCO2 ABG Hemoglobin ABG Oxyhemoglobin ABG Sodium ABG Chloride ABG Glucose Oxyhemoglobin Sodium Potassium Chloride Carbon Dioxide BUN Creatinine Glucose POC Glucose 147 H 166 H 123 H Lactic Acid Calcium Phosphorus Magnesium AST ALT Lactate Dehydrogenase Total Bilirubin Direct Bilirubin CK-MB (CK-2) C-Reactive Protein NT-Pro-B Natriuret Pep Total Protein Albumin Arterial Blood Glucose Urine WBC (Auto) Urine Creatinine 12/15/19 12/15/19 12/15/19 05:28 05:29 05:29 WBC 14.9 H RBC 3.19 L Hgb 9.1 L Hct 28.7 L MCHC RDW 16.0 H MCV MCH Lymph % (Auto) [place] % (Auto) Canadian # Eos # Lymph # (Auto) [place] # (Auto) Eos # (Auto) Seg Neutrophils % Seg Neuts % (Manual) Baso # (Auto) Lymphocytes % (Manual) Monocytes % (Manual) Eosinophils % (Manual) Basophils % (Manual) Seg Neutrophils # Seg Neutrophils # Man Lymphocytes # (Manual) Monocytes # (Manual) Eosinophils # (Manual) Nucleated RBC % Basophils # (Manual) PT INR APTT Heparin Anti-Xa Level 0.19 L ABG pH POC ABG pO2 ABG pO2 ABG HCO3 ABG O2 Saturation ABG Base Excess POC ABG pCO2 ABG Hemoglobin ABG Oxyhemoglobin ABG Sodium ABG Chloride ABG Glucose Oxyhemoglobin Sodium Potassium Chloride Carbon Dioxide BUN Creatinine 0.6 L Glucose 110 H POC Glucose Lactic Acid Calcium Phosphorus Magnesium AST ALT Lactate Dehydrogenase Total Bilirubin Direct Bilirubin CK-MB (CK-2) C-Reactive Protein NT-Pro-B Natriuret Pep Total Protein Albumin Arterial Blood Glucose Urine WBC (Auto) Urine Creatinine 12/15/19 12/15/19 12/15/19 05:53 11:50 17:26 WBC RBC Hgb Hct MCHC RDW MCV MCH Lymph % (Auto) [place] % (Auto) [place] # Eos # Lymph # (Auto) [place] # (Auto) Eos # (Auto) Seg Neutrophils % Seg Neuts % (Manual) Baso # (Auto) Lymphocytes % (Manual) Monocytes % (Manual) Eosinophils % (Manual) Basophils % (Manual) Seg Neutrophils # Seg Neutrophils # Man Lymphocytes # (Manual) Monocytes # (Manual) Eosinophils # (Manual) Nucleated RBC % Basophils # (Manual) PT INR APTT Heparin Anti-Xa Level ABG pH POC ABG pO2 ABG pO2 ABG HCO3 ABG O2 Saturation ABG Base Excess POC ABG pCO2 ABG Hemoglobin ABG Oxyhemoglobin ABG Sodium ABG Chloride ABG Glucose Oxyhemoglobin Sodium Potassium Chloride Carbon Dioxide BUN Creatinine Glucose POC Glucose 119 H 132 H 128 H Lactic Acid Calcium Phosphorus Magnesium AST ALT Lactate Dehydrogenase Total Bilirubin Direct Bilirubin CK-MB (CK-2) C-Reactive Protein NT-Pro-B Natriuret Pep Total Protein Albumin Arterial Blood Glucose Urine WBC (Auto) Urine Creatinine 12/15/19 12/16/19 12/16/19 23:11 05:30 05:46 WBC RBC Hgb 8.8 L Hct 27.9 L MCHC RDW MCV MCH Lymph % (Auto) [place] % (Auto) [place] # Eos # Lymph # (Auto) [place] # (Auto) Eos # (Auto) Seg Neutrophils % Seg Neuts % (Manual) Baso # (Auto) Lymphocytes % (Manual) Monocytes % (Manual) Eosinophils % (Manual) Basophils % (Manual) Seg Neutrophils # Seg Neutrophils # Man Lymphocytes # (Manual) Monocytes # (Manual) Eosinophils # (Manual) Nucleated RBC % Basophils # (Manual) PT INR APTT Heparin Anti-Xa Level ABG pH POC ABG pO2 ABG pO2 ABG HCO3 ABG O2 Saturation ABG Base Excess POC ABG pCO2 ABG Hemoglobin ABG Oxyhemoglobin ABG Sodium ABG Chloride ABG Glucose Oxyhemoglobin Sodium Potassium Chloride Carbon Dioxide BUN Creatinine Glucose POC Glucose 150 H 134 H Lactic Acid Calcium Phosphorus Magnesium AST ALT Lactate Dehydrogenase Total Bilirubin Direct Bilirubin CK-MB (CK-2) C-Reactive Protein NT-Pro-B Natriuret Pep Total Protein Albumin Arterial Blood Glucose Urine WBC (Auto) Urine Creatinine 12/16/19 12/16/19 12/16/19 05:46 05:46 11:44 WBC RBC Hgb Hct MCHC RDW MCV MCH Lymph % (Auto) [place] % (Auto) [place] # Eos # Lymph # (Auto) [place] # (Auto) Eos # (Auto) Seg Neutrophils % Seg Neuts % (Manual) Baso # (Auto) Lymphocytes % (Manual) Monocytes % (Manual) Eosinophils % (Manual) Basophils % (Manual) Seg Neutrophils # Seg Neutrophils # Man Lymphocytes # (Manual) Monocytes # (Manual) Eosinophils # (Manual) Nucleated RBC % Basophils # (Manual) PT INR APTT Heparin Anti-Xa Level 0.20 L ABG pH POC ABG pO2 ABG pO2 ABG HCO3 ABG O2 Saturation ABG Base Excess POC ABG pCO2 ABG Hemoglobin ABG Oxyhemoglobin ABG Sodium ABG Chloride ABG Glucose Oxyhemoglobin Sodium Potassium Chloride Carbon Dioxide 31 H BUN Creatinine 0.5 L Glucose 147 H POC Glucose 164 H Lactic Acid Calcium Phosphorus Magnesium AST ALT Lactate Dehydrogenase Total Bilirubin Direct Bilirubin CK-MB (CK-2) C-Reactive Protein NT-Pro-B Natriuret Pep Total Protein Albumin Arterial Blood Glucose Urine WBC (Auto) Urine Creatinine 12/16/19 12/16/19 12/17/19 17:17 23:49 05:30 WBC 13.9 H RBC 3.27 L Hgb 9.4 L Hct 29.2 L MCHC RDW 16.0 H MCV MCH Lymph % (Auto) [place] % (Auto) 8.8 H [place] # Eos # Lymph # (Auto) [place] # (Auto) 1.2 H Eos # (Auto) 0.5 H Seg Neutrophils % 70.5 H Seg Neuts % (Manual) Baso # (Auto) 0.2 H Lymphocytes % (Manual) Monocytes % (Manual) Eosinophils % (Manual) Basophils % (Manual) Seg Neutrophils # 9.8 H Seg Neutrophils # Man Lymphocytes # (Manual) Monocytes # (Manual) Eosinophils # (Manual) Nucleated RBC % Basophils # (Manual) PT INR APTT Heparin Anti-Xa Level ABG pH POC ABG pO2 ABG pO2 ABG HCO3 ABG O2 Saturation ABG Base Excess POC ABG pCO2 ABG Hemoglobin ABG Oxyhemoglobin ABG Sodium ABG Chloride ABG Glucose Oxyhemoglobin Sodium Potassium Chloride Carbon Dioxide BUN Creatinine Glucose POC Glucose 162 H 144 H Lactic Acid Calcium Phosphorus Magnesium AST ALT Lactate Dehydrogenase Total Bilirubin Direct Bilirubin CK-MB (CK-2) C-Reactive Protein NT-Pro-B Natriuret Pep Total Protein Albumin Arterial Blood Glucose Urine WBC (Auto) Urine Creatinine 12/17/19 12/17/19 12/17/19 05:30 06:06 11:50 WBC RBC Hgb Hct MCHC RDW MCV MCH Lymph % (Auto) [place] % (Auto) [place] # Eos # Lymph # (Auto) [place] # (Auto) Eos # (Auto) Seg Neutrophils % Seg Neuts % (Manual) Baso # (Auto) Lymphocytes % (Manual) Monocytes % (Manual) Eosinophils % (Manual) Basophils % (Manual) Seg Neutrophils # Seg Neutrophils # Man Lymphocytes # (Manual) Monocytes # (Manual) Eosinophils # (Manual) Nucleated RBC % Basophils # (Manual) PT INR APTT Heparin Anti-Xa Level ABG pH POC ABG pO2 ABG pO2 ABG HCO3 ABG O2 Saturation ABG Base Excess POC ABG pCO2 ABG Hemoglobin ABG Oxyhemoglobin ABG Sodium ABG Chloride ABG Glucose Oxyhemoglobin Sodium Potassium Chloride 97.4 L Carbon Dioxide 32 H BUN Creatinine 0.5 L Glucose 135 H POC Glucose 151 H 140 H Lactic Acid Calcium Phosphorus Magnesium AST ALT Lactate Dehydrogenase Total Bilirubin Direct Bilirubin CK-MB (CK-2) C-Reactive Protein NT-Pro-B Natriuret Pep Total Protein Albumin Arterial Blood Glucose Urine WBC (Auto) Urine Creatinine 12/17/19 12/17/19 12/18/19 17:50 23:46 05:17 WBC RBC Hgb 8.8 L Hct 28.0 L MCHC RDW MCV MCH Lymph % (Auto) [place] % (Auto) [place] # Eos # Lymph # (Auto) [place] # (Auto) Eos # (Auto) Seg Neutrophils % Seg Neuts % (Manual) Baso # (Auto) Lymphocytes % (Manual) Monocytes % (Manual) Eosinophils % (Manual) Basophils % (Manual) Seg Neutrophils # Seg Neutrophils # Man Lymphocytes # (Manual) Monocytes # (Manual) Eosinophils # (Manual) Nucleated RBC % Basophils # (Manual) PT INR APTT Heparin Anti-Xa Level ABG pH POC ABG pO2 ABG pO2 ABG HCO3 ABG O2 Saturation ABG Base Excess POC ABG pCO2 ABG Hemoglobin ABG Oxyhemoglobin ABG Sodium ABG Chloride ABG Glucose Oxyhemoglobin Sodium Potassium Chloride Carbon Dioxide BUN Creatinine Glucose POC Glucose 158 H 150 H Lactic Acid Calcium Phosphorus Magnesium AST ALT Lactate Dehydrogenase Total Bilirubin Direct Bilirubin CK-MB (CK-2) C-Reactive Protein NT-Pro-B Natriuret Pep Total Protein Albumin Arterial Blood Glucose Urine WBC (Auto) Urine Creatinine 12/18/19 12/18/19 12/18/19 05:17 05:49 11:12 WBC RBC Hgb Hct MCHC RDW MCV MCH Lymph % (Auto) [place] % (Auto) [place] # Eos # Lymph # (Auto) [place] # (Auto) Eos # (Auto) Seg Neutrophils % Seg Neuts % (Manual) Baso # (Auto) Lymphocytes % (Manual) Monocytes % (Manual) Eosinophils % (Manual) Basophils % (Manual) Seg Neutrophils # Seg Neutrophils # Man Lymphocytes # (Manual) Monocytes # (Manual) Eosinophils # (Manual) Nucleated RBC % Basophils # (Manual) PT INR APTT Heparin Anti-Xa Level 0.16 L ABG pH POC ABG pO2 ABG pO2 ABG HCO3 ABG O2 Saturation ABG Base Excess POC ABG pCO2 ABG Hemoglobin ABG Oxyhemoglobin ABG Sodium ABG Chloride ABG Glucose Oxyhemoglobin Sodium Potassium Chloride Carbon Dioxide BUN Creatinine Glucose POC Glucose 127 H 191 H Lactic Acid Calcium Phosphorus Magnesium AST ALT Lactate Dehydrogenase Total Bilirubin Direct Bilirubin CK-MB (CK-2) C-Reactive Protein NT-Pro-B Natriuret Pep Total Protein Albumin Arterial Blood Glucose Urine WBC (Auto) Urine Creatinine 12/18/19 12/18/19 12/19/19 17:03 20:16 00:08 WBC RBC Hgb Hct MCHC RDW MCV MCH Lymph % (Auto) [place] % (Auto) [place] # Eos # Lymph # (Auto) [place] # (Auto) Eos # (Auto) Seg Neutrophils % Seg Neuts % (Manual) Baso # (Auto) Lymphocytes % (Manual) Monocytes % (Manual) Eosinophils % (Manual) Basophils % (Manual) Seg Neutrophils # Seg Neutrophils # Man Lymphocytes # (Manual) Monocytes # (Manual) Eosinophils # (Manual) Nucleated RBC % Basophils # (Manual) PT INR APTT Heparin Anti-Xa Level ABG pH POC ABG pO2 ABG pO2 ABG HCO3 ABG O2 Saturation ABG Base Excess POC ABG pCO2 ABG Hemoglobin ABG Oxyhemoglobin ABG Sodium ABG Chloride ABG Glucose Oxyhemoglobin Sodium Potassium Chloride Carbon Dioxide BUN Creatinine Glucose POC Glucose 133 H 128 H 129 H Lactic Acid Calcium Phosphorus Magnesium AST ALT Lactate Dehydrogenase Total Bilirubin Direct Bilirubin CK-MB (CK-2) C-Reactive Protein NT-Pro-B Natriuret Pep Total Protein Albumin Arterial Blood Glucose Urine WBC (Auto) Urine Creatinine 12/19/19 12/19/19 12/19/19 04:45 04:45 05:35 WBC RBC Hgb Hct MCHC RDW MCV MCH Lymph % (Auto) [place] % (Auto) [place] # Eos # Lymph # (Auto) [place] # (Auto) Eos # (Auto) Seg Neutrophils % Seg Neuts % (Manual) Baso # (Auto) Lymphocytes % (Manual) Monocytes % (Manual) Eosinophils % (Manual) Basophils % (Manual) Seg Neutrophils # Seg Neutrophils # Man Lymphocytes # (Manual) Monocytes # (Manual) Eosinophils # (Manual) Nucleated RBC % Basophils # (Manual) PT INR APTT Heparin Anti-Xa Level 0.17 L ABG pH POC ABG pO2 ABG pO2 ABG HCO3 ABG O2 Saturation ABG Base Excess POC ABG pCO2 ABG Hemoglobin ABG Oxyhemoglobin ABG Sodium ABG Chloride ABG Glucose Oxyhemoglobin Sodium Potassium Chloride Carbon Dioxide BUN Creatinine Glucose POC Glucose 120 H Lactic Acid Calcium Phosphorus Magnesium AST ALT Lactate Dehydrogenase 228 H Total Bilirubin Direct Bilirubin CK-MB (CK-2) C-Reactive Protein NT-Pro-B Natriuret Pep Total Protein Albumin Arterial Blood Glucose Urine WBC (Auto) Urine Creatinine 12/19/19 12/19/19 12/19/19 09:20 11:32 11:32 WBC 14.6 H RBC 3.08 L Hgb 9.0 L Hct 26.8 L MCHC RDW 15.9 H MCV MCH Lymph % (Auto) [place] % (Auto) [place] # Eos # Lymph # (Auto) [place] # (Auto) Eos # (Auto) Seg Neutrophils % Seg Neuts % (Manual) 82.0 H Baso # (Auto) Lymphocytes % (Manual) 10.0 L Monocytes % (Manual) Eosinophils % (Manual) Basophils % (Manual) Seg Neutrophils # Seg Neutrophils # Man 12.0 H Lymphocytes # (Manual) Monocytes # (Manual) 0.9 H Eosinophils # (Manual) Nucleated RBC % 1.0 H Basophils # (Manual) PT INR APTT Heparin Anti-Xa Level ABG pH 7.451 H POC ABG pO2 ABG pO2 62.6 L ABG HCO3 33.2 H ABG O2 Saturation 93.8 L ABG Base Excess 8.3 H POC ABG pCO2 ABG Hemoglobin 8.3 L ABG Oxyhemoglobin ABG Sodium ABG Chloride ABG Glucose Oxyhemoglobin 91.9 L Sodium Potassium Chloride 95.0 L Carbon Dioxide 33 H BUN 22 H Creatinine 0.6 L Glucose 150 H POC Glucose Lactic Acid Calcium Phosphorus Magnesium AST ALT Lactate Dehydrogenase Total Bilirubin Direct Bilirubin CK-MB (CK-2) C-Reactive Protein NT-Pro-B Natriuret Pep Total Protein 6.2 L Albumin 2.4 L Arterial Blood Glucose Urine WBC (Auto) Urine Creatinine 12/19/19 12/19/19 12/20/19 11:56 18:17 00:09 WBC RBC Hgb Hct MCHC RDW MCV MCH Lymph % (Auto) [place] % (Auto) [place] # Eos # Lymph # (Auto) [place] # (Auto) Eos # (Auto) Seg Neutrophils % Seg Neuts % (Manual) Baso # (Auto) Lymphocytes % (Manual) Monocytes % (Manual) Eosinophils % (Manual) Basophils % (Manual) Seg Neutrophils # Seg Neutrophils # Man Lymphocytes # (Manual) Monocytes # (Manual) Eosinophils # (Manual) Nucleated RBC % Basophils # (Manual) PT INR APTT Heparin Anti-Xa Level ABG pH POC ABG pO2 ABG pO2 ABG HCO3 ABG O2 Saturation ABG Base Excess POC ABG pCO2 ABG Hemoglobin ABG Oxyhemoglobin ABG Sodium ABG Chloride ABG Glucose Oxyhemoglobin Sodium Potassium Chloride Carbon Dioxide BUN Creatinine Glucose POC Glucose 156 H 156 H 155 H Lactic Acid Calcium Phosphorus Magnesium AST ALT Lactate Dehydrogenase Total Bilirubin Direct Bilirubin CK-MB (CK-2) C-Reactive Protein NT-Pro-B Natriuret Pep Total Protein Albumin Arterial Blood Glucose Urine WBC (Auto) Urine Creatinine 12/20/19 12/20/19 12/20/19 05:26 06:02 18:17 WBC RBC Hgb Hct MCHC RDW MCV MCH Lymph % (Auto) [place] % (Auto) [place] # Eos # Lymph # (Auto) [place] # (Auto) Eos # (Auto) Seg Neutrophils % Seg Neuts % (Manual) Baso # (Auto) Lymphocytes % (Manual) Monocytes % (Manual) Eosinophils % (Manual) Basophils % (Manual) Seg Neutrophils # Seg Neutrophils # Man Lymphocytes # (Manual) Monocytes # (Manual) Eosinophils # (Manual) Nucleated RBC % Basophils # (Manual) PT INR APTT Heparin Anti-Xa Level 0.19 L ABG pH POC ABG pO2 ABG pO2 ABG HCO3 ABG O2 Saturation ABG Base Excess POC ABG pCO2 ABG Hemoglobin ABG Oxyhemoglobin ABG Sodium ABG Chloride ABG Glucose Oxyhemoglobin Sodium Potassium Chloride Carbon Dioxide BUN Creatinine Glucose POC Glucose 137 H 128 H Lactic Acid Calcium Phosphorus Magnesium AST ALT Lactate Dehydrogenase Total Bilirubin Direct Bilirubin CK-MB (CK-2) C-Reactive Protein NT-Pro-B Natriuret Pep Total Protein Albumin Arterial Blood Glucose Urine WBC (Auto) Urine Creatinine 12/20/19 12/21/19 12/21/19 23:34 05:31 05:31 WBC 12.7 H RBC 3.09 L Hgb 8.9 L Hct 27.4 L MCHC RDW 15.8 H MCV MCH Lymph % (Auto) 12.1 L [place] % (Auto) 7.8 H [place] # Eos # Lymph # (Auto) [place] # (Auto) 1.0 H Eos # (Auto) Seg Neutrophils % 77.1 H Seg Neuts % (Manual) Baso # (Auto) Lymphocytes % (Manual) Monocytes % (Manual) Eosinophils % (Manual) Basophils % (Manual) Seg Neutrophils # 9.8 H Seg Neutrophils # Man Lymphocytes # (Manual) Monocytes # (Manual) Eosinophils # (Manual) Nucleated RBC % Basophils # (Manual) PT INR APTT Heparin Anti-Xa Level ABG pH POC ABG pO2 ABG pO2 ABG HCO3 ABG O2 Saturation ABG Base Excess POC ABG pCO2 ABG Hemoglobin ABG Oxyhemoglobin ABG Sodium ABG Chloride ABG Glucose Oxyhemoglobin Sodium Potassium Chloride 96.9 L Carbon Dioxide 37 H BUN 27 H Creatinine 0.7 L Glucose 140 H POC Glucose 145 H Lactic Acid Calcium Phosphorus Magnesium AST ALT Lactate Dehydrogenase Total Bilirubin Direct Bilirubin CK-MB (CK-2) C-Reactive Protein NT-Pro-B Natriuret Pep Total Protein Albumin Arterial Blood Glucose Urine WBC (Auto) Urine Creatinine 12/21/19 12/21/19 12/21/19 05:38 10:13 11:51 WBC RBC Hgb Hct MCHC RDW MCV MCH Lymph % (Auto) [place] % (Auto) [place] # Eos # Lymph # (Auto) [place] # (Auto) Eos # (Auto) Seg Neutrophils % Seg Neuts % (Manual) Baso # (Auto) Lymphocytes % (Manual) Monocytes % (Manual) Eosinophils % (Manual) Basophils % (Manual) Seg Neutrophils # Seg Neutrophils # Man Lymphocytes # (Manual) Monocytes # (Manual) Eosinophils # (Manual) Nucleated RBC % Basophils # (Manual) PT INR APTT 23.9 L Heparin Anti-Xa Level < 0.10 L ABG pH POC ABG pO2 ABG pO2 ABG HCO3 ABG O2 Saturation ABG Base Excess POC ABG pCO2 ABG Hemoglobin ABG Oxyhemoglobin ABG Sodium ABG Chloride ABG Glucose Oxyhemoglobin Sodium Potassium Chloride Carbon Dioxide BUN Creatinine Glucose POC Glucose 151 H 145 H Lactic Acid Calcium Phosphorus Magnesium AST ALT Lactate Dehydrogenase Total Bilirubin Direct Bilirubin CK-MB (CK-2) C-Reactive Protein NT-Pro-B Natriuret Pep Total Protein Albumin Arterial Blood Glucose Urine WBC (Auto) Urine Creatinine 12/21/19 12/22/19 12/22/19 17:16 00:01 01:33 WBC RBC Hgb Hct MCHC RDW MCV MCH Lymph % (Auto) [place] % (Auto) [place] # Eos # Lymph # (Auto) [place] # (Auto) Eos # (Auto) Seg Neutrophils % Seg Neuts % (Manual) Baso # (Auto) Lymphocytes % (Manual) Monocytes % (Manual) Eosinophils % (Manual) Basophils % (Manual) Seg Neutrophils # Seg Neutrophils # Man Lymphocytes # (Manual) Monocytes # (Manual) Eosinophils # (Manual) Nucleated RBC % Basophils # (Manual) PT INR APTT Heparin Anti-Xa Level 0.10 L ABG pH POC ABG pO2 ABG pO2 ABG HCO3 ABG O2 Saturation ABG Base Excess POC ABG pCO2 ABG Hemoglobin ABG Oxyhemoglobin ABG Sodium ABG Chloride ABG Glucose Oxyhemoglobin Sodium Potassium Chloride Carbon Dioxide BUN Creatinine Glucose POC Glucose 167 H 179 H Lactic Acid Calcium Phosphorus Magnesium AST ALT Lactate Dehydrogenase Total Bilirubin Direct Bilirubin CK-MB (CK-2) C-Reactive Protein NT-Pro-B Natriuret Pep Total Protein Albumin Arterial Blood Glucose Urine WBC (Auto) Urine Creatinine 12/22/19 12/22/19 12/22/19 03:22 05:10 05:10 WBC 13.8 H RBC 3.20 L Hgb 8.9 L Hct 28.1 L MCHC RDW 15.9 H MCV MCH Lymph % (Auto) [place] % (Auto) [place] # Eos # Lymph # (Auto) [place] # (Auto) Eos # (Auto) Seg Neutrophils % Seg Neuts % (Manual) Baso # (Auto) Lymphocytes % (Manual) Monocytes % (Manual) Eosinophils % (Manual) Basophils % (Manual) Seg Neutrophils # Seg Neutrophils # Man Lymphocytes # (Manual) Monocytes # (Manual) Eosinophils # (Manual) Nucleated RBC % Basophils # (Manual) PT INR APTT Heparin Anti-Xa Level ABG pH POC ABG pO2 52.3 L ABG pO2 ABG HCO3 ABG O2 Saturation ABG Base Excess POC ABG pCO2 52.9 H ABG Hemoglobin 10.7 L ABG Oxyhemoglobin 84 L ABG Sodium ABG Chloride ABG Glucose Oxyhemoglobin Sodium Potassium Chloride 96.6 L Carbon Dioxide BUN 25 H Creatinine 0.7 L Glucose 129 H POC Glucose Lactic Acid Calcium Phosphorus Magnesium AST ALT Lactate Dehydrogenase Total Bilirubin Direct Bilirubin CK-MB (CK-2) C-Reactive Protein NT-Pro-B Natriuret Pep Total Protein Albumin Arterial Blood Glucose Urine WBC (Auto) Urine Creatinine 12/22/19 12/22/19 12/22/19 05:18 12:32 12:43 WBC RBC Hgb Hct MCHC RDW MCV MCH Lymph % (Auto) [place] % (Auto) [place] # Eos # Lymph # (Auto) [place] # (Auto) Eos # (Auto) Seg Neutrophils % Seg Neuts % (Manual) Baso # (Auto) Lymphocytes % (Manual) Monocytes % (Manual) Eosinophils % (Manual) Basophils % (Manual) Seg Neutrophils # Seg Neutrophils # Man Lymphocytes # (Manual) Monocytes # (Manual) Eosinophils # (Manual) Nucleated RBC % Basophils # (Manual) PT INR APTT Heparin Anti-Xa Level 0.18 L ABG pH POC ABG pO2 ABG pO2 ABG HCO3 ABG O2 Saturation ABG Base Excess POC ABG pCO2 ABG Hemoglobin ABG Oxyhemoglobin ABG Sodium ABG Chloride ABG Glucose Oxyhemoglobin Sodium Potassium Chloride Carbon Dioxide BUN Creatinine Glucose POC Glucose 131 H 208 H Lactic Acid Calcium Phosphorus Magnesium AST ALT Lactate Dehydrogenase Total Bilirubin Direct Bilirubin CK-MB (CK-2) C-Reactive Protein NT-Pro-B Natriuret Pep Total Protein Albumin Arterial Blood Glucose Urine WBC (Auto) Urine Creatinine 12/22/19 12/22/19 12/23/19 17:44 23:20 03:51 WBC 15.2 H RBC 3.43 L Hgb 9.6 L Hct 30.3 L MCHC RDW 15.9 H MCV MCH Lymph % (Auto) [place] % (Auto) [place] # Eos # Lymph # (Auto) [place] # (Auto) Eos # (Auto) Seg Neutrophils % Seg Neuts % (Manual) Baso # (Auto) Lymphocytes % (Manual) Monocytes % (Manual) Eosinophils % (Manual) Basophils % (Manual) Seg Neutrophils # Seg Neutrophils # Man Lymphocytes # (Manual) Monocytes # (Manual) Eosinophils # (Manual) Nucleated RBC % Basophils # (Manual) PT INR APTT Heparin Anti-Xa Level ABG pH POC ABG pO2 ABG pO2 ABG HCO3 ABG O2 Saturation ABG Base Excess POC ABG pCO2 ABG Hemoglobin ABG Oxyhemoglobin ABG Sodium ABG Chloride ABG Glucose Oxyhemoglobin Sodium Potassium Chloride Carbon Dioxide BUN Creatinine Glucose POC Glucose 209 H 119 H Lactic Acid Calcium Phosphorus Magnesium AST ALT Lactate Dehydrogenase Total Bilirubin Direct Bilirubin CK-MB (CK-2) C-Reactive Protein NT-Pro-B Natriuret Pep Total Protein Albumin Arterial Blood Glucose Urine WBC (Auto) Urine Creatinine 12/23/19 12/23/19 12/23/19 03:51 05:31 12:09 WBC RBC Hgb Hct MCHC RDW MCV MCH Lymph % (Auto) [place] % (Auto) [place] # Eos # Lymph # (Auto) [place] # (Auto) Eos # (Auto) Seg Neutrophils % Seg Neuts % (Manual) Baso # (Auto) Lymphocytes % (Manual) Monocytes % (Manual) Eosinophils % (Manual) Basophils % (Manual) Seg Neutrophils # Seg Neutrophils # Man Lymphocytes # (Manual) Monocytes # (Manual) Eosinophils # (Manual) Nucleated RBC % Basophils # (Manual) PT INR APTT Heparin Anti-Xa Level ABG pH POC ABG pO2 ABG pO2 ABG HCO3 ABG O2 Saturation ABG Base Excess POC ABG pCO2 ABG Hemoglobin ABG Oxyhemoglobin ABG Sodium ABG Chloride ABG Glucose Oxyhemoglobin Sodium Potassium Chloride 97.2 L Carbon Dioxide 31 H BUN 23 H Creatinine 0.6 L Glucose 153 H POC Glucose 149 H 144 H Lactic Acid Calcium Phosphorus Magnesium AST ALT Lactate Dehydrogenase Total Bilirubin Direct Bilirubin CK-MB (CK-2) C-Reactive Protein NT-Pro-B Natriuret Pep Total Protein Albumin Arterial Blood Glucose Urine WBC (Auto) Urine Creatinine 12/23/19 12/23/19 12/23/19 15:30 17:49 23:31 WBC RBC Hgb Hct MCHC RDW MCV MCH Lymph % (Auto) [place] % (Auto) [place] # Eos # Lymph # (Auto) [place] # (Auto) Eos # (Auto) Seg Neutrophils % Seg Neuts % (Manual) Baso # (Auto) Lymphocytes % (Manual) Monocytes % (Manual) Eosinophils % (Manual) Basophils % (Manual) Seg Neutrophils # Seg Neutrophils # Man Lymphocytes # (Manual) Monocytes # (Manual) Eosinophils # (Manual) Nucleated RBC % Basophils # (Manual) PT INR APTT Heparin Anti-Xa Level 0.21 L ABG pH POC ABG pO2 ABG pO2 ABG HCO3 ABG O2 Saturation ABG Base Excess POC ABG pCO2 ABG Hemoglobin ABG Oxyhemoglobin ABG Sodium ABG Chloride ABG Glucose Oxyhemoglobin Sodium Potassium Chloride Carbon Dioxide BUN Creatinine Glucose POC Glucose 192 H 151 H Lactic Acid Calcium Phosphorus Magnesium AST ALT Lactate Dehydrogenase Total Bilirubin Direct Bilirubin CK-MB (CK-2) C-Reactive Protein NT-Pro-B Natriuret Pep Total Protein Albumin Arterial Blood Glucose Urine WBC (Auto) Urine Creatinine 12/24/19 12/24/19 12/24/19 05:34 12:13 16:50 WBC RBC Hgb Hct MCHC RDW MCV MCH Lymph % (Auto) [place] % (Auto) [place] # Eos # Lymph # (Auto) [place] # (Auto) Eos # (Auto) Seg Neutrophils % Seg Neuts % (Manual) Baso # (Auto) Lymphocytes % (Manual) Monocytes % (Manual) Eosinophils % (Manual) Basophils % (Manual) Seg Neutrophils # Seg Neutrophils # Man Lymphocytes # (Manual) Monocytes # (Manual) Eosinophils # (Manual) Nucleated RBC % Basophils # (Manual) PT INR APTT Heparin Anti-Xa Level 0.16 L ABG pH POC ABG pO2 ABG pO2 ABG HCO3 ABG O2 Saturation ABG Base Excess POC ABG pCO2 ABG Hemoglobin ABG Oxyhemoglobin ABG Sodium ABG Chloride ABG Glucose Oxyhemoglobin Sodium Potassium Chloride Carbon Dioxide BUN Creatinine Glucose POC Glucose 145 H 124 H Lactic Acid Calcium Phosphorus Magnesium AST ALT Lactate Dehydrogenase Total Bilirubin Direct Bilirubin CK-MB (CK-2) C-Reactive Protein NT-Pro-B Natriuret Pep Total Protein Albumin Arterial Blood Glucose Urine WBC (Auto) Urine Creatinine 12/24/19 12/25/19 12/25/19 17:53 00:14 04:18 WBC 12.9 H RBC 3.30 L Hgb 9.1 L Hct 28.8 L MCHC RDW 16.4 H MCV MCH Lymph % (Auto) [place] % (Auto) 7.8 H [place] # Eos # Lymph # (Auto) [place] # (Auto) 1.0 H Eos # (Auto) Seg Neutrophils % 75.5 H Seg Neuts % (Manual) Baso # (Auto) Lymphocytes % (Manual) Monocytes % (Manual) Eosinophils % (Manual) Basophils % (Manual) Seg Neutrophils # 9.7 H Seg Neutrophils # Man Lymphocytes # (Manual) Monocytes # (Manual) Eosinophils # (Manual) Nucleated RBC % Basophils # (Manual) PT INR APTT Heparin Anti-Xa Level ABG pH POC ABG pO2 ABG pO2 ABG HCO3 ABG O2 Saturation ABG Base Excess POC ABG pCO2 ABG Hemoglobin ABG Oxyhemoglobin ABG Sodium ABG Chloride ABG Glucose Oxyhemoglobin Sodium Potassium Chloride Carbon Dioxide BUN Creatinine Glucose POC Glucose 164 H 148 H Lactic Acid Calcium Phosphorus Magnesium AST ALT Lactate Dehydrogenase Total Bilirubin Direct Bilirubin CK-MB (CK-2) C-Reactive Protein NT-Pro-B Natriuret Pep Total Protein Albumin Arterial Blood Glucose Urine WBC (Auto) Urine Creatinine 12/25/19 12/25/19 12/25/19 04:18 05:38 11:44 WBC RBC Hgb Hct MCHC RDW MCV MCH Lymph % (Auto) [place] % (Auto) Canadian # Eos # Lymph # (Auto) [place] # (Auto) Eos # (Auto) Seg Neutrophils % Seg Neuts % (Manual) Baso # (Auto) Lymphocytes % (Manual) Monocytes % (Manual) Eosinophils % (Manual) Basophils % (Manual) Seg Neutrophils # Seg Neutrophils # Man Lymphocytes # (Manual) Monocytes # (Manual) Eosinophils # (Manual) Nucleated RBC % Basophils # (Manual) PT INR APTT Heparin Anti-Xa Level ABG pH POC ABG pO2 ABG pO2 ABG HCO3 ABG O2 Saturation ABG Base Excess POC ABG pCO2 ABG Hemoglobin ABG Oxyhemoglobin ABG Sodium ABG Chloride ABG Glucose Oxyhemoglobin Sodium Potassium Chloride Carbon Dioxide 33 H BUN 27 H Creatinine 0.6 L Glucose 132 H POC Glucose 152 H 166 H Lactic Acid Calcium Phosphorus Magnesium AST ALT Lactate Dehydrogenase Total Bilirubin Direct Bilirubin CK-MB (CK-2) C-Reactive Protein NT-Pro-B Natriuret Pep Total Protein Albumin Arterial Blood Glucose Urine WBC (Auto) Urine Creatinine 12/25/19 12/26/19 12/26/19 18:29 00:17 00:18 WBC RBC Hgb Hct MCHC RDW MCV MCH Lymph % (Auto) [place] % (Auto) [place] # Eos # Lymph # (Auto) [place] # (Auto) Eos # (Auto) Seg Neutrophils % Seg Neuts % (Manual) Baso # (Auto) Lymphocytes % (Manual) Monocytes % (Manual) Eosinophils % (Manual) Basophils % (Manual) Seg Neutrophils # Seg Neutrophils # Man Lymphocytes # (Manual) Monocytes # (Manual) Eosinophils # (Manual) Nucleated RBC % Basophils # (Manual) PT INR APTT Heparin Anti-Xa Level ABG pH POC ABG pO2 ABG pO2 ABG HCO3 ABG O2 Saturation ABG Base Excess POC ABG pCO2 ABG Hemoglobin ABG Oxyhemoglobin ABG Sodium ABG Chloride ABG Glucose Oxyhemoglobin Sodium Potassium Chloride 97.8 L Carbon Dioxide BUN 25 H Creatinine 0.6 L Glucose 140 H POC Glucose 194 H 151 H Lactic Acid Calcium Phosphorus Magnesium AST ALT Lactate Dehydrogenase Total Bilirubin Direct Bilirubin CK-MB (CK-2) C-Reactive Protein NT-Pro-B Natriuret Pep Total Protein Albumin Arterial Blood Glucose Urine WBC (Auto) Urine Creatinine 12/26/19 12/26/19 12/26/19 05:36 11:41 17:50 WBC RBC Hgb Hct MCHC RDW MCV MCH Lymph % (Auto) [place] % (Auto) [place] # Eos # Lymph # (Auto) [place] # (Auto) Eos # (Auto) Seg Neutrophils % Seg Neuts % (Manual) Baso # (Auto) Lymphocytes % (Manual) Monocytes % (Manual) Eosinophils % (Manual) Basophils % (Manual) Seg Neutrophils # Seg Neutrophils # Man Lymphocytes # (Manual) Monocytes # (Manual) Eosinophils # (Manual) Nucleated RBC % Basophils # (Manual) PT INR APTT Heparin Anti-Xa Level ABG pH POC ABG pO2 ABG pO2 ABG HCO3 ABG O2 Saturation ABG Base Excess POC ABG pCO2 ABG Hemoglobin ABG Oxyhemoglobin ABG Sodium ABG Chloride ABG Glucose Oxyhemoglobin Sodium Potassium Chloride Carbon Dioxide BUN Creatinine Glucose POC Glucose 156 H 148 H 139 H Lactic Acid Calcium Phosphorus Magnesium AST ALT Lactate Dehydrogenase Total Bilirubin Direct Bilirubin CK-MB (CK-2) C-Reactive Protein NT-Pro-B Natriuret Pep Total Protein Albumin Arterial Blood Glucose Urine WBC (Auto) Urine Creatinine 12/26/19 12/27/19 12/27/19 23:19 05:34 12:02 WBC RBC Hgb Hct MCHC RDW MCV MCH Lymph % (Auto) [place] % (Auto) [place] # Eos # Lymph # (Auto) [place] # (Auto) Eos # (Auto) Seg Neutrophils % Seg Neuts % (Manual) Baso # (Auto) Lymphocytes % (Manual) Monocytes % (Manual) Eosinophils % (Manual) Basophils % (Manual) Seg Neutrophils # Seg Neutrophils # Man Lymphocytes # (Manual) Monocytes # (Manual) Eosinophils # (Manual) Nucleated RBC % Basophils # (Manual) PT INR APTT Heparin Anti-Xa Level ABG pH POC ABG pO2 ABG pO2 ABG HCO3 ABG O2 Saturation ABG Base Excess POC ABG pCO2 ABG Hemoglobin ABG Oxyhemoglobin ABG Sodium ABG Chloride ABG Glucose Oxyhemoglobin Sodium Potassium Chloride Carbon Dioxide BUN Creatinine Glucose POC Glucose 161 H 145 H 157 H Lactic Acid Calcium Phosphorus Magnesium AST ALT Lactate Dehydrogenase Total Bilirubin Direct Bilirubin CK-MB (CK-2) C-Reactive Protein NT-Pro-B Natriuret Pep Total Protein Albumin Arterial Blood Glucose Urine WBC (Auto) Urine Creatinine 12/27/19 12/27/19 12/27/19 17:35 20:11 23:00 WBC RBC Hgb Hct MCHC RDW MCV MCH Lymph % (Auto) [place] % (Auto) [place] # Eos # Lymph # (Auto) [place] # (Auto) Eos # (Auto) Seg Neutrophils % Seg Neuts % (Manual) Baso # (Auto) Lymphocytes % (Manual) Monocytes % (Manual) Eosinophils % (Manual) Basophils % (Manual) Seg Neutrophils # Seg Neutrophils # Man Lymphocytes # (Manual) Monocytes # (Manual) Eosinophils # (Manual) Nucleated RBC % Basophils # (Manual) PT INR APTT Heparin Anti-Xa Level 0.19 L ABG pH POC ABG pO2 ABG pO2 ABG HCO3 ABG O2 Saturation ABG Base Excess POC ABG pCO2 ABG Hemoglobin ABG Oxyhemoglobin ABG Sodium ABG Chloride ABG Glucose Oxyhemoglobin Sodium Potassium Chloride Carbon Dioxide BUN Creatinine Glucose POC Glucose 158 H 155 H Lactic Acid Calcium Phosphorus Magnesium AST ALT Lactate Dehydrogenase Total Bilirubin Direct Bilirubin CK-MB (CK-2) C-Reactive Protein NT-Pro-B Natriuret Pep Total Protein Albumin Arterial Blood Glucose Urine WBC (Auto) Urine Creatinine 12/27/19 12/28/19 12/28/19 23:45 02:41 02:41 WBC 13.0 H RBC 3.48 L Hgb 9.5 L Hct 30.6 L MCHC 31 L RDW 16.6 H MCV MCH 27 L Lymph % (Auto) 13.0 L [place] % (Auto) 8.0 H [place] # Eos # Lymph # (Auto) [place] # (Auto) 1.0 H Eos # (Auto) Seg Neutrophils % 76.3 H Seg Neuts % (Manual) Baso # (Auto) Lymphocytes % (Manual) Monocytes % (Manual) Eosinophils % (Manual) Basophils % (Manual) Seg Neutrophils # 9.9 H Seg Neutrophils # Man Lymphocytes # (Manual) Monocytes # (Manual) Eosinophils # (Manual) Nucleated RBC % Basophils # (Manual) PT INR APTT Heparin Anti-Xa Level ABG pH POC ABG pO2 ABG pO2 ABG HCO3 ABG O2 Saturation ABG Base Excess POC ABG pCO2 ABG Hemoglobin ABG Oxyhemoglobin ABG Sodium ABG Chloride ABG Glucose Oxyhemoglobin Sodium Potassium Chloride Carbon Dioxide BUN 22 H Creatinine 0.6 L Glucose 101 H POC Glucose 130 H Lactic Acid Calcium Phosphorus Magnesium AST ALT Lactate Dehydrogenase Total Bilirubin Direct Bilirubin CK-MB (CK-2) C-Reactive Protein NT-Pro-B Natriuret Pep Total Protein Albumin Arterial Blood Glucose Urine WBC (Auto) Urine Creatinine 12/28/19 12/28/19 12/28/19 06:00 12:34 18:13 WBC RBC Hgb Hct MCHC RDW MCV MCH Lymph % (Auto) [place] % (Auto) [place] # Eos # Lymph # (Auto) [place] # (Auto) Eos # (Auto) Seg Neutrophils % Seg Neuts % (Manual) Baso # (Auto) Lymphocytes % (Manual) Monocytes % (Manual) Eosinophils % (Manual) Basophils % (Manual) Seg Neutrophils # Seg Neutrophils # Man Lymphocytes # (Manual) Monocytes # (Manual) Eosinophils # (Manual) Nucleated RBC % Basophils # (Manual) PT INR APTT Heparin Anti-Xa Level ABG pH POC ABG pO2 ABG pO2 ABG HCO3 ABG O2 Saturation ABG Base Excess POC ABG pCO2 ABG Hemoglobin ABG Oxyhemoglobin ABG Sodium ABG Chloride ABG Glucose Oxyhemoglobin Sodium Potassium Chloride Carbon Dioxide BUN Creatinine Glucose POC Glucose 150 H 161 H 128 H Lactic Acid Calcium Phosphorus Magnesium AST ALT Lactate Dehydrogenase Total Bilirubin Direct Bilirubin CK-MB (CK-2) C-Reactive Protein NT-Pro-B Natriuret Pep Total Protein Albumin Arterial Blood Glucose Urine WBC (Auto) Urine Creatinine 12/28/19 12/29/19 12/29/19 23:36 05:21 11:40 WBC RBC Hgb Hct MCHC RDW MCV MCH Lymph % (Auto) [place] % (Auto) [place] # Eos # Lymph # (Auto) [place] # (Auto) Eos # (Auto) Seg Neutrophils % Seg Neuts % (Manual) Baso # (Auto) Lymphocytes % (Manual) Monocytes % (Manual) Eosinophils % (Manual) Basophils % (Manual) Seg Neutrophils # Seg Neutrophils # Man Lymphocytes # (Manual) Monocytes # (Manual) Eosinophils # (Manual) Nucleated RBC % Basophils # (Manual) PT INR APTT Heparin Anti-Xa Level ABG pH POC ABG pO2 ABG pO2 ABG HCO3 ABG O2 Saturation ABG Base Excess POC ABG pCO2 ABG Hemoglobin ABG Oxyhemoglobin ABG Sodium ABG Chloride ABG Glucose Oxyhemoglobin Sodium Potassium Chloride Carbon Dioxide BUN Creatinine Glucose POC Glucose 137 H 136 H 166 H Lactic Acid Calcium Phosphorus Magnesium AST ALT Lactate Dehydrogenase Total Bilirubin Direct Bilirubin CK-MB (CK-2) C-Reactive Protein NT-Pro-B Natriuret Pep Total Protein Albumin Arterial Blood Glucose Urine WBC (Auto) Urine Creatinine 12/29/19 12/29/19 12/29/19 17:23 19:21 23:38 WBC RBC Hgb Hct MCHC RDW MCV MCH Lymph % (Auto) [place] % (Auto) [place] # Eos # Lymph # (Auto) [place] # (Auto) Eos # (Auto) Seg Neutrophils % Seg Neuts % (Manual) Baso # (Auto) Lymphocytes % (Manual) Monocytes % (Manual) Eosinophils % (Manual) Basophils % (Manual) Seg Neutrophils # Seg Neutrophils # Man Lymphocytes # (Manual) Monocytes # (Manual) Eosinophils # (Manual) Nucleated RBC % Basophils # (Manual) PT INR APTT Heparin Anti-Xa Level 0.20 L ABG pH POC ABG pO2 ABG pO2 ABG HCO3 ABG O2 Saturation ABG Base Excess POC ABG pCO2 ABG Hemoglobin ABG Oxyhemoglobin ABG Sodium ABG Chloride ABG Glucose Oxyhemoglobin Sodium Potassium Chloride Carbon Dioxide BUN Creatinine Glucose POC Glucose 144 H 141 H Lactic Acid Calcium Phosphorus Magnesium AST ALT Lactate Dehydrogenase Total Bilirubin Direct Bilirubin CK-MB (CK-2) C-Reactive Protein NT-Pro-B Natriuret Pep Total Protein Albumin Arterial Blood Glucose Urine WBC (Auto) Urine Creatinine 12/30/19 12/30/19 12/30/19 03:58 03:58 04:59 WBC RBC 3.54 L Hgb 9.8 L Hct 30.7 L MCHC RDW 16.8 H MCV MCH Lymph % (Auto) [place] % (Auto) [place] # Eos # Lymph # (Auto) [place] # (Auto) Eos # (Auto) Seg Neutrophils % Seg Neuts % (Manual) Baso # (Auto) Lymphocytes % (Manual) Monocytes % (Manual) Eosinophils % (Manual) Basophils % (Manual) Seg Neutrophils # Seg Neutrophils # Man Lymphocytes # (Manual) Monocytes # (Manual) Eosinophils # (Manual) Nucleated RBC % Basophils # (Manual) PT INR APTT Heparin Anti-Xa Level ABG pH POC ABG pO2 ABG pO2 ABG HCO3 29.8 H ABG O2 Saturation ABG Base Excess 4.8 H POC ABG pCO2 ABG Hemoglobin 11.2 L ABG Oxyhemoglobin ABG Sodium ABG Chloride ABG Glucose Oxyhemoglobin 93.8 L Sodium Potassium Chloride 97.8 L Carbon Dioxide BUN 26 H Creatinine Glucose 168 H POC Glucose Lactic Acid Calcium Phosphorus Magnesium AST ALT Lactate Dehydrogenase Total Bilirubin Direct Bilirubin CK-MB (CK-2) C-Reactive Protein NT-Pro-B Natriuret Pep Total Protein Albumin Arterial Blood Glucose Urine WBC (Auto) Urine Creatinine 12/30/19 12/30/19 12/30/19 05:45 11:34 17:28 WBC RBC Hgb Hct MCHC RDW MCV MCH Lymph % (Auto) [place] % (Auto) [place] # Eos # Lymph # (Auto) [place] # (Auto) Eos # (Auto) Seg Neutrophils % Seg Neuts % (Manual) Baso # (Auto) Lymphocytes % (Manual) Monocytes % (Manual) Eosinophils % (Manual) Basophils % (Manual) Seg Neutrophils # Seg Neutrophils # Man Lymphocytes # (Manual) Monocytes # (Manual) Eosinophils # (Manual) Nucleated RBC % Basophils # (Manual) PT INR APTT Heparin Anti-Xa Level ABG pH POC ABG pO2 ABG pO2 ABG HCO3 ABG O2 Saturation ABG Base Excess POC ABG pCO2 ABG Hemoglobin ABG Oxyhemoglobin ABG Sodium ABG Chloride ABG Glucose Oxyhemoglobin Sodium Potassium Chloride Carbon Dioxide BUN Creatinine Glucose POC Glucose 163 H 180 H 150 H Lactic Acid Calcium Phosphorus Magnesium AST ALT Lactate Dehydrogenase Total Bilirubin Direct Bilirubin CK-MB (CK-2) C-Reactive Protein NT-Pro-B Natriuret Pep Total Protein Albumin Arterial Blood Glucose Urine WBC (Auto) Urine Creatinine 12/30/19 12/31/19 12/31/19 23:43 04:55 05:07 WBC RBC Hgb Hct MCHC RDW MCV MCH Lymph % (Auto) [place] % (Auto) [place] # Eos # Lymph # (Auto) [place] # (Auto) Eos # (Auto) Seg Neutrophils % Seg Neuts % (Manual) Baso # (Auto) Lymphocytes % (Manual) Monocytes % (Manual) Eosinophils % (Manual) Basophils % (Manual) Seg Neutrophils # Seg Neutrophils # Man Lymphocytes # (Manual) Monocytes # (Manual) Eosinophils # (Manual) Nucleated RBC % Basophils # (Manual) PT INR APTT Heparin Anti-Xa Level ABG pH POC ABG pO2 ABG pO2 ABG HCO3 ABG O2 Saturation ABG Base Excess POC ABG pCO2 ABG Hemoglobin ABG Oxyhemoglobin ABG Sodium ABG Chloride ABG Glucose Oxyhemoglobin Sodium Potassium 5.6 H D Chloride Carbon Dioxide BUN 33 H Creatinine Glucose 131 H POC Glucose 142 H 134 H Lactic Acid Calcium Phosphorus Magnesium AST ALT Lactate Dehydrogenase Total Bilirubin Direct Bilirubin CK-MB (CK-2) C-Reactive Protein NT-Pro-B Natriuret Pep Total Protein Albumin Arterial Blood Glucose Urine WBC (Auto) Urine Creatinine 12/31/19 12/31/19 12/31/19 11:30 17:19 17:36 WBC RBC Hgb Hct MCHC RDW MCV MCH Lymph % (Auto) [place] % (Auto) [place] # Eos # Lymph # (Auto) [place] # (Auto) Eos # (Auto) Seg Neutrophils % Seg Neuts % (Manual) Baso # (Auto) Lymphocytes % (Manual) Monocytes % (Manual) Eosinophils % (Manual) Basophils % (Manual) Seg Neutrophils # Seg Neutrophils # Man Lymphocytes # (Manual) Monocytes # (Manual) Eosinophils # (Manual) Nucleated RBC % Basophils # (Manual) PT INR APTT Heparin Anti-Xa Level ABG pH POC ABG pO2 ABG pO2 ABG HCO3 ABG O2 Saturation ABG Base Excess POC ABG pCO2 ABG Hemoglobin ABG Oxyhemoglobin ABG Sodium ABG Chloride ABG Glucose Oxyhemoglobin Sodium Potassium Chloride Carbon Dioxide BUN 35 H Creatinine Glucose 156 H POC Glucose 158 H 181 H Lactic Acid Calcium Phosphorus Magnesium AST ALT Lactate Dehydrogenase Total Bilirubin Direct Bilirubin CK-MB (CK-2) C-Reactive Protein NT-Pro-B Natriuret Pep Total Protein Albumin Arterial Blood Glucose Urine WBC (Auto) Urine Creatinine 12/31/19 12/31/19 12/31/19 18:16 19:41 21:53 WBC RBC Hgb Hct MCHC RDW MCV MCH Lymph % (Auto) [place] % (Auto) [place] # Eos # Lymph # (Auto) [place] # (Auto) Eos # (Auto) Seg Neutrophils % Seg Neuts % (Manual) Baso # (Auto) Lymphocytes % (Manual) Monocytes % (Manual) Eosinophils % (Manual) Basophils % (Manual) Seg Neutrophils # Seg Neutrophils # Man Lymphocytes # (Manual) Monocytes # (Manual) Eosinophils # (Manual) Nucleated RBC % Basophils # (Manual) PT INR APTT Heparin Anti-Xa Level 0.20 L ABG pH POC ABG pO2 ABG pO2 ABG HCO3 ABG O2 Saturation ABG Base Excess POC ABG pCO2 ABG Hemoglobin ABG Oxyhemoglobin ABG Sodium ABG Chloride ABG Glucose Oxyhemoglobin Sodium Potassium Chloride Carbon Dioxide BUN 34 H Creatinine Glucose 169 H POC Glucose 141 H Lactic Acid Calcium Phosphorus Magnesium AST ALT Lactate Dehydrogenase Total Bilirubin Direct Bilirubin CK-MB (CK-2) C-Reactive Protein NT-Pro-B Natriuret Pep Total Protein Albumin Arterial Blood Glucose Urine WBC (Auto) Urine Creatinine 12/31/19 01/01/20 01/01/20 23:51 05:17 10:40 WBC RBC Hgb Hct MCHC RDW MCV MCH Lymph % (Auto) [place] % (Auto) [place] # Eos # Lymph # (Auto) [place] # (Auto) Eos # (Auto) Seg Neutrophils % Seg Neuts % (Manual) Baso # (Auto) Lymphocytes % (Manual) Monocytes % (Manual) Eosinophils % (Manual) Basophils % (Manual) Seg Neutrophils # Seg Neutrophils # Man Lymphocytes # (Manual) Monocytes # (Manual) Eosinophils # (Manual) Nucleated RBC % Basophils # (Manual) PT INR APTT Heparin Anti-Xa Level ABG pH POC ABG pO2 ABG pO2 ABG HCO3 ABG O2 Saturation ABG Base Excess POC ABG pCO2 ABG Hemoglobin ABG Oxyhemoglobin ABG Sodium ABG Chloride ABG Glucose Oxyhemoglobin Sodium Potassium Chloride Carbon Dioxide BUN 31 H Creatinine 0.7 L Glucose 137 H POC Glucose 131 H 155 H Lactic Acid Calcium Phosphorus Magnesium AST 73 H ALT 97 H Lactate Dehydrogenase Total Bilirubin Direct Bilirubin CK-MB (CK-2) C-Reactive Protein NT-Pro-B Natriuret Pep 3866 H Total Protein Albumin 2.8 L Arterial Blood Glucose Urine WBC (Auto) Urine Creatinine 01/01/20 01/01/20 01/01/20 12:26 15:33 17:53 WBC 14.3 H RBC 3.35 L Hgb 9.1 L Hct 28.8 L MCHC RDW 17.0 H MCV MCH 27 L Lymph % (Auto) 7.0 L [place] % (Auto) 7.6 H [place] # Eos # Lymph # (Auto) 1.0 L [place] # (Auto) 1.1 H Eos # (Auto) Seg Neutrophils % 83.3 H Seg Neuts % (Manual) Baso # (Auto) Lymphocytes % (Manual) Monocytes % (Manual) Eosinophils % (Manual) Basophils % (Manual) Seg Neutrophils # 12.0 H Seg Neutrophils # Man Lymphocytes # (Manual) Monocytes # (Manual) Eosinophils # (Manual) Nucleated RBC % Basophils # (Manual) PT INR APTT Heparin Anti-Xa Level ABG pH POC ABG pO2 ABG pO2 ABG HCO3 ABG O2 Saturation ABG Base Excess POC ABG pCO2 ABG Hemoglobin ABG Oxyhemoglobin ABG Sodium ABG Chloride ABG Glucose Oxyhemoglobin Sodium Potassium Chloride Carbon Dioxide BUN Creatinine Glucose POC Glucose 128 H 128 H Lactic Acid Calcium Phosphorus Magnesium AST ALT Lactate Dehydrogenase Total Bilirubin Direct Bilirubin CK-MB (CK-2) C-Reactive Protein NT-Pro-B Natriuret Pep Total Protein Albumin Arterial Blood Glucose Urine WBC (Auto) Urine Creatinine 01/01/20 01/02/20 01/02/20 23:04 05:39 07:00 WBC RBC Hgb Hct MCHC RDW MCV MCH Lymph % (Auto) [place] % (Auto) [place] # Eos # Lymph # (Auto) [place] # (Auto) Eos # (Auto) Seg Neutrophils % Seg Neuts % (Manual) Baso # (Auto) Lymphocytes % (Manual) Monocytes % (Manual) Eosinophils % (Manual) Basophils % (Manual) Seg Neutrophils # Seg Neutrophils # Man Lymphocytes # (Manual) Monocytes # (Manual) Eosinophils # (Manual) Nucleated RBC % Basophils # (Manual) PT INR APTT Heparin Anti-Xa Level 0.13 L ABG pH POC ABG pO2 ABG pO2 ABG HCO3 ABG O2 Saturation ABG Base Excess POC ABG pCO2 ABG Hemoglobin ABG Oxyhemoglobin ABG Sodium ABG Chloride ABG Glucose Oxyhemoglobin Sodium Potassium Chloride Carbon Dioxide BUN Creatinine Glucose POC Glucose 120 H 169 H Lactic Acid Calcium Phosphorus Magnesium AST ALT Lactate Dehydrogenase Total Bilirubin Direct Bilirubin CK-MB (CK-2) C-Reactive Protein NT-Pro-B Natriuret Pep Total Protein Albumin Arterial Blood Glucose Urine WBC (Auto) Urine Creatinine 01/02/20 01/02/20 01/02/20 12:15 14:06 17:58 WBC RBC Hgb Hct MCHC RDW MCV MCH Lymph % (Auto) [place] % (Auto) [place] # Eos # Lymph # (Auto) [place] # (Auto) Eos # (Auto) Seg Neutrophils % Seg Neuts % (Manual) Baso # (Auto) Lymphocytes % (Manual) Monocytes % (Manual) Eosinophils % (Manual) Basophils % (Manual) Seg Neutrophils # Seg Neutrophils # Man Lymphocytes # (Manual) Monocytes # (Manual) Eosinophils # (Manual) Nucleated RBC % Basophils # (Manual) PT INR APTT Heparin Anti-Xa Level < 0.10 L ABG pH POC ABG pO2 ABG pO2 ABG HCO3 ABG O2 Saturation ABG Base Excess POC ABG pCO2 ABG Hemoglobin ABG Oxyhemoglobin ABG Sodium ABG Chloride ABG Glucose Oxyhemoglobin Sodium Potassium Chloride Carbon Dioxide BUN Creatinine Glucose POC Glucose 190 H 198 H Lactic Acid Calcium Phosphorus Magnesium AST ALT Lactate Dehydrogenase Total Bilirubin Direct Bilirubin CK-MB (CK-2) C-Reactive Protein NT-Pro-B Natriuret Pep Total Protein Albumin Arterial Blood Glucose Urine WBC (Auto) Urine Creatinine 01/02/20 01/02/20 01/03/20 21:43 23:33 05:42 WBC RBC Hgb Hct MCHC RDW MCV MCH Lymph % (Auto) [place] % (Auto) [place] # Eos # Lymph # (Auto) [place] # (Auto) Eos # (Auto) Seg Neutrophils % Seg Neuts % (Manual) Baso # (Auto) Lymphocytes % (Manual) Monocytes % (Manual) Eosinophils % (Manual) Basophils % (Manual) Seg Neutrophils # Seg Neutrophils # Man Lymphocytes # (Manual) Monocytes # (Manual) Eosinophils # (Manual) Nucleated RBC % Basophils # (Manual) PT INR APTT Heparin Anti-Xa Level 0.10 L ABG pH POC ABG pO2 ABG pO2 ABG HCO3 ABG O2 Saturation ABG Base Excess POC ABG pCO2 ABG Hemoglobin ABG Oxyhemoglobin ABG Sodium ABG Chloride ABG Glucose Oxyhemoglobin Sodium Potassium Chloride Carbon Dioxide BUN Creatinine Glucose POC Glucose 180 H 163 H Lactic Acid Calcium Phosphorus Magnesium AST ALT Lactate Dehydrogenase Total Bilirubin Direct Bilirubin CK-MB (CK-2) C-Reactive Protein NT-Pro-B Natriuret Pep Total Protein Albumin Arterial Blood Glucose Urine WBC (Auto) Urine Creatinine 01/03/20 01/03/20 01/03/20 06:50 07:25 07:45 WBC 12.1 H RBC 3.35 L Hgb 9.0 L Hct 28.9 L MCHC 31 L RDW 16.6 H MCV MCH 27 L Lymph % (Auto) 13.0 L [place] % (Auto) 8.6 H [place] # Eos # Lymph # (Auto) [place] # (Auto) 1.0 H Eos # (Auto) Seg Neutrophils % 75.9 H Seg Neuts % (Manual) Baso # (Auto) Lymphocytes % (Manual) Monocytes % (Manual) Eosinophils % (Manual) Basophils % (Manual) Seg Neutrophils # 9.2 H Seg Neutrophils # Man Lymphocytes # (Manual) Monocytes # (Manual) Eosinophils # (Manual) Nucleated RBC % Basophils # (Manual) PT INR APTT Heparin Anti-Xa Level 0.29 L ABG pH POC ABG pO2 ABG pO2 ABG HCO3 ABG O2 Saturation ABG Base Excess POC ABG pCO2 ABG Hemoglobin ABG Oxyhemoglobin ABG Sodium ABG Chloride ABG Glucose Oxyhemoglobin Sodium Potassium 3.3 L D Chloride Carbon Dioxide 35 H D BUN 23 H Creatinine 0.6 L Glucose 149 H POC Glucose Lactic Acid Calcium Phosphorus Magnesium AST ALT 88 H Lactate Dehydrogenase Total Bilirubin Direct Bilirubin CK-MB (CK-2) C-Reactive Protein NT-Pro-B Natriuret Pep Total Protein 6.2 L Albumin 2.9 L Arterial Blood Glucose Urine WBC (Auto) Urine Creatinine 01/03/20 01/03/20 01/03/20 12:05 17:42 18:30 WBC RBC Hgb Hct MCHC RDW MCV MCH Lymph % (Auto) [place] % (Auto) [place] # Eos # Lymph # (Auto) [place] # (Auto) Eos # (Auto) Seg Neutrophils % Seg Neuts % (Manual) Baso # (Auto) Lymphocytes % (Manual) Monocytes % (Manual) Eosinophils % (Manual) Basophils % (Manual) Seg Neutrophils # Seg Neutrophils # Man Lymphocytes # (Manual) Monocytes # (Manual) Eosinophils # (Manual) Nucleated RBC % Basophils # (Manual) PT INR APTT Heparin Anti-Xa Level ABG pH POC ABG pO2 ABG pO2 70.7 L ABG HCO3 36.1 H ABG O2 Saturation 94.4 L ABG Base Excess 10.0 H POC ABG pCO2 ABG Hemoglobin 9.7 L ABG Oxyhemoglobin ABG Sodium ABG Chloride ABG Glucose Oxyhemoglobin 91.8 L Sodium Potassium Chloride Carbon Dioxide BUN Creatinine Glucose POC Glucose 128 H 132 H Lactic Acid Calcium Phosphorus Magnesium AST ALT Lactate Dehydrogenase Total Bilirubin Direct Bilirubin CK-MB (CK-2) C-Reactive Protein NT-Pro-B Natriuret Pep Total Protein Albumin Arterial Blood Glucose Urine WBC (Auto) Urine Creatinine 01/04/20 01/04/20 01/04/20 00:10 04:26 05:23 WBC RBC Hgb Hct MCHC RDW MCV MCH Lymph % (Auto) [place] % (Auto) [place] # Eos # Lymph # (Auto) [place] # (Auto) Eos # (Auto) Seg Neutrophils % Seg Neuts % (Manual) Baso # (Auto) Lymphocytes % (Manual) Monocytes % (Manual) Eosinophils % (Manual) Basophils % (Manual) Seg Neutrophils # Seg Neutrophils # Man Lymphocytes # (Manual) Monocytes # (Manual) Eosinophils # (Manual) Nucleated RBC % Basophils # (Manual) PT INR APTT Heparin Anti-Xa Level 0.16 L ABG pH POC ABG pO2 ABG pO2 ABG HCO3 ABG O2 Saturation ABG Base Excess POC ABG pCO2 ABG Hemoglobin ABG Oxyhemoglobin ABG Sodium ABG Chloride ABG Glucose Oxyhemoglobin Sodium Potassium Chloride Carbon Dioxide BUN Creatinine Glucose POC Glucose 121 H 119 H Lactic Acid Calcium Phosphorus Magnesium AST ALT Lactate Dehydrogenase Total Bilirubin Direct Bilirubin CK-MB (CK-2) C-Reactive Protein NT-Pro-B Natriuret Pep Total Protein Albumin Arterial Blood Glucose Urine WBC (Auto) Urine Creatinine 01/04/20 01/04/20 01/04/20 09:50 09:50 12:18 WBC 15.4 H RBC 3.30 L Hgb 8.7 L Hct 28.2 L MCHC 31 L RDW 17.0 H MCV MCH 26 L Lymph % (Auto) [place] % (Auto) 7.6 H [place] # Eos # Lymph # (Auto) [place] # (Auto) 1.2 H Eos # (Auto) Seg Neutrophils % 75.4 H Seg Neuts % (Manual) Baso # (Auto) Lymphocytes % (Manual) Monocytes % (Manual) Eosinophils % (Manual) Basophils % (Manual) Seg Neutrophils # 11.6 H Seg Neutrophils # Man Lymphocytes # (Manual) Monocytes # (Manual) Eosinophils # (Manual) Nucleated RBC % Basophils # (Manual) PT INR APTT Heparin Anti-Xa Level ABG pH POC ABG pO2 ABG pO2 ABG HCO3 ABG O2 Saturation ABG Base Excess POC ABG pCO2 ABG Hemoglobin ABG Oxyhemoglobin ABG Sodium ABG Chloride ABG Glucose Oxyhemoglobin Sodium 148 H Potassium 3.5 L Chloride Carbon Dioxide 32 H BUN Creatinine 0.6 L Glucose 114 H POC Glucose 111 H Lactic Acid Calcium Phosphorus Magnesium AST ALT 59 H Lactate Dehydrogenase Total Bilirubin Direct Bilirubin CK-MB (CK-2) C-Reactive Protein NT-Pro-B Natriuret Pep Total Protein Albumin 2.6 L Arterial Blood Glucose Urine WBC (Auto) Urine Creatinine 01/05/20 01/05/20 01/05/20 04:05 04:05 05:19 WBC 11.7 H RBC 3.50 L Hgb 9.3 L Hct 29.9 L MCHC 31 L RDW 16.6 H MCV MCH 27 L Lymph % (Auto) 13.1 L Canadian % (Auto) 9.7 H Canadian # Eos # Lymph # (Auto) Canadian # (Auto) 1.1 H Eos # (Auto) Seg Neutrophils % 74.0 H Seg Neuts % (Manual) Baso # (Auto) Lymphocytes % (Manual) Monocytes % (Manual) Eosinophils % (Manual) Basophils % (Manual) Seg Neutrophils # 8.6 H Seg Neutrophils # Man Lymphocytes # (Manual) Monocytes # (Manual) Eosinophils # (Manual) Nucleated RBC % Basophils # (Manual) PT INR APTT Heparin Anti-Xa Level ABG pH POC ABG pO2 ABG pO2 ABG HCO3 ABG O2 Saturation ABG Base Excess POC ABG pCO2 ABG Hemoglobin ABG Oxyhemoglobin ABG Sodium ABG Chloride ABG Glucose Oxyhemoglobin Sodium 151 H Potassium Chloride Carbon Dioxide 34 H BUN Creatinine 0.7 L Glucose POC Glucose 112 H Lactic Acid Calcium Phosphorus Magnesium AST ALT 59 H Lactate Dehydrogenase Total Bilirubin Direct Bilirubin CK-MB (CK-2) C-Reactive Protein NT-Pro-B Natriuret Pep Total Protein 5.8 L Albumin 2.6 L Arterial Blood Glucose Urine WBC (Auto) Urine Creatinine 01/05/20 01/06/20 01/06/20 16:04 00:23 04:44 WBC RBC 3.36 L Hgb 8.9 L Hct 28.7 L MCHC 31 L RDW 16.9 H MCV MCH 26 L Lymph % (Auto) [place] % (Auto) 9.4 H Canadian # Eos # Lymph # (Auto) [place] # (Auto) Eos # (Auto) Seg Neutrophils % Seg Neuts % (Manual) Baso # (Auto) Lymphocytes % (Manual) Monocytes % (Manual) Eosinophils % (Manual) Basophils % (Manual) Seg Neutrophils # Seg Neutrophils # Man Lymphocytes # (Manual) Monocytes # (Manual) Eosinophils # (Manual) Nucleated RBC % Basophils # (Manual) PT INR APTT Heparin Anti-Xa Level ABG pH POC ABG pO2 ABG pO2 ABG HCO3 ABG O2 Saturation ABG Base Excess POC ABG pCO2 ABG Hemoglobin ABG Oxyhemoglobin ABG Sodium ABG Chloride ABG Glucose Oxyhemoglobin Sodium 151 H Potassium 3.2 L Chloride Carbon Dioxide 34 H BUN Creatinine 0.6 L Glucose POC Glucose 107 H Lactic Acid Calcium Phosphorus Magnesium AST ALT Lactate Dehydrogenase Total Bilirubin Direct Bilirubin CK-MB (CK-2) C-Reactive Protein NT-Pro-B Natriuret Pep Total Protein Albumin Arterial Blood Glucose Urine WBC (Auto) Urine Creatinine 01/06/20 01/06/20 01/06/20 04:44 05:33 12:04 WBC RBC Hgb Hct MCHC RDW MCV MCH Lymph % (Auto) [place] % (Auto) [place] # Eos # Lymph # (Auto) [place] # (Auto) Eos # (Auto) Seg Neutrophils % Seg Neuts % (Manual) Baso # (Auto) Lymphocytes % (Manual) Monocytes % (Manual) Eosinophils % (Manual) Basophils % (Manual) Seg Neutrophils # Seg Neutrophils # Man Lymphocytes # (Manual) Monocytes # (Manual) Eosinophils # (Manual) Nucleated RBC % Basophils # (Manual) PT INR APTT Heparin Anti-Xa Level ABG pH POC ABG pO2 ABG pO2 ABG HCO3 ABG O2 Saturation ABG Base Excess POC ABG pCO2 ABG Hemoglobin ABG Oxyhemoglobin ABG Sodium ABG Chloride ABG Glucose Oxyhemoglobin Sodium 151 H Potassium 3.4 L Chloride Carbon Dioxide 33 H BUN Creatinine 0.6 L Glucose 118 H POC Glucose 118 H 123 H Lactic Acid Calcium Phosphorus Magnesium AST ALT Lactate Dehydrogenase Total Bilirubin Direct Bilirubin CK-MB (CK-2) C-Reactive Protein NT-Pro-B Natriuret Pep Total Protein 6.2 L Albumin 2.6 L Arterial Blood Glucose Urine WBC (Auto) Urine Creatinine 01/06/20 01/07/20 01/07/20 17:54 00:06 04:10 WBC RBC 3.42 L Hgb 8.9 L Hct 29.0 L MCHC 31 L RDW 17.1 H MCV MCH 26 L Lymph % (Auto) [place] % (Auto) 8.4 H [place] # Eos # Lymph # (Auto) [place] # (Auto) Eos # (Auto) Seg Neutrophils % Seg Neuts % (Manual) Baso # (Auto) Lymphocytes % (Manual) Monocytes % (Manual) Eosinophils % (Manual) Basophils % (Manual) Seg Neutrophils # Seg Neutrophils # Man Lymphocytes # (Manual) Monocytes # (Manual) Eosinophils # (Manual) Nucleated RBC % Basophils # (Manual) PT INR APTT Heparin Anti-Xa Level ABG pH POC ABG pO2 ABG pO2 ABG HCO3 ABG O2 Saturation ABG Base Excess POC ABG pCO2 ABG Hemoglobin ABG Oxyhemoglobin ABG Sodium ABG Chloride ABG Glucose Oxyhemoglobin Sodium Potassium Chloride Carbon Dioxide BUN Creatinine Glucose POC Glucose 112 H 126 H Lactic Acid Calcium Phosphorus Magnesium AST ALT Lactate Dehydrogenase Total Bilirubin Direct Bilirubin CK-MB (CK-2) C-Reactive Protein NT-Pro-B Natriuret Pep Total Protein Albumin Arterial Blood Glucose Urine WBC (Auto) Urine Creatinine 01/07/20 01/07/20 01/07/20 04:10 05:59 12:27 WBC RBC Hgb Hct MCHC RDW MCV MCH Lymph % (Auto) [place] % (Auto) [place] # Eos # Lymph # (Auto) [place] # (Auto) Eos # (Auto) Seg Neutrophils % Seg Neuts % (Manual) Baso # (Auto) Lymphocytes % (Manual) Monocytes % (Manual) Eosinophils % (Manual) Basophils % (Manual) Seg Neutrophils # Seg Neutrophils # Man Lymphocytes # (Manual) Monocytes # (Manual) Eosinophils # (Manual) Nucleated RBC % Basophils # (Manual) PT INR APTT Heparin Anti-Xa Level ABG pH POC ABG pO2 ABG pO2 ABG HCO3 ABG O2 Saturation ABG Base Excess POC ABG pCO2 ABG Hemoglobin ABG Oxyhemoglobin ABG Sodium ABG Chloride ABG Glucose Oxyhemoglobin Sodium 153 H Potassium 3.5 L Chloride Carbon Dioxide 34 H BUN Creatinine 0.6 L Glucose 121 H POC Glucose 121 H 126 H Lactic Acid Calcium Phosphorus Magnesium AST ALT Lactate Dehydrogenase Total Bilirubin Direct Bilirubin CK-MB (CK-2) C-Reactive Protein NT-Pro-B Natriuret Pep Total Protein 5.9 L Albumin 2.4 L Arterial Blood Glucose Urine WBC (Auto) Urine Creatinine 01/07/20 01/08/20 01/08/20 18:12 00:03 05:41 WBC RBC Hgb Hct MCHC RDW MCV MCH Lymph % (Auto) [place] % (Auto) [place] # Eos # Lymph # (Auto) [place] # (Auto) Eos # (Auto) Seg Neutrophils % Seg Neuts % (Manual) Baso # (Auto) Lymphocytes % (Manual) Monocytes % (Manual) Eosinophils % (Manual) Basophils % (Manual) Seg Neutrophils # Seg Neutrophils # Man Lymphocytes # (Manual) Monocytes # (Manual) Eosinophils # (Manual) Nucleated RBC % Basophils # (Manual) PT INR APTT Heparin Anti-Xa Level ABG pH POC ABG pO2 ABG pO2 ABG HCO3 ABG O2 Saturation ABG Base Excess POC ABG pCO2 ABG Hemoglobin ABG Oxyhemoglobin ABG Sodium ABG Chloride ABG Glucose Oxyhemoglobin Sodium Potassium Chloride Carbon Dioxide BUN Creatinine Glucose POC Glucose 124 H 130 H 138 H Lactic Acid Calcium Phosphorus Magnesium AST ALT Lactate Dehydrogenase Total Bilirubin Direct Bilirubin CK-MB (CK-2) C-Reactive Protein NT-Pro-B Natriuret Pep Total Protein Albumin Arterial Blood Glucose Urine WBC (Auto) Urine Creatinine 01/08/20 01/08/20 01/08/20 09:28 11:42 18:21 WBC RBC Hgb Hct MCHC RDW MCV MCH Lymph % (Auto) [place] % (Auto) [place] # Eos # Lymph # (Auto) [place] # (Auto) Eos # (Auto) Seg Neutrophils % Seg Neuts % (Manual) Baso # (Auto) Lymphocytes % (Manual) Monocytes % (Manual) Eosinophils % (Manual) Basophils % (Manual) Seg Neutrophils # Seg Neutrophils # Man Lymphocytes # (Manual) Monocytes # (Manual) Eosinophils # (Manual) Nucleated RBC % Basophils # (Manual) PT INR APTT Heparin Anti-Xa Level ABG pH POC ABG pO2 ABG pO2 ABG HCO3 ABG O2 Saturation ABG Base Excess POC ABG pCO2 ABG Hemoglobin ABG Oxyhemoglobin ABG Sodium ABG Chloride ABG Glucose Oxyhemoglobin Sodium Potassium Chloride Carbon Dioxide BUN Creatinine Glucose POC Glucose 181 H 150 H 129 H Lactic Acid Calcium Phosphorus Magnesium AST ALT Lactate Dehydrogenase Total Bilirubin Direct Bilirubin CK-MB (CK-2) C-Reactive Protein NT-Pro-B Natriuret Pep Total Protein Albumin Arterial Blood Glucose Urine WBC (Auto) Urine Creatinine 01/08/20 01/08/20 01/09/20 19:25 23:55 04:11 WBC RBC 3.43 L Hgb 8.9 L Hct 28.7 L MCHC 31 L RDW 17.6 H MCV MCH 26 L Lymph % (Auto) [place] % (Auto) 8.6 H [place] # Eos # Lymph # (Auto) [place] # (Auto) Eos # (Auto) Seg Neutrophils % Seg Neuts % (Manual) Baso # (Auto) Lymphocytes % (Manual) Monocytes % (Manual) Eosinophils % (Manual) Basophils % (Manual) Seg Neutrophils # Seg Neutrophils # Man Lymphocytes # (Manual) Monocytes # (Manual) Eosinophils # (Manual) Nucleated RBC % Basophils # (Manual) PT INR APTT Heparin Anti-Xa Level ABG pH POC ABG pO2 ABG pO2 ABG HCO3 ABG O2 Saturation ABG Base Excess POC ABG pCO2 ABG Hemoglobin ABG Oxyhemoglobin ABG Sodium ABG Chloride ABG Glucose Oxyhemoglobin Sodium Potassium Chloride Carbon Dioxide BUN Creatinine 0.7 L Glucose 117 H POC Glucose 132 H Lactic Acid Calcium Phosphorus Magnesium AST ALT Lactate Dehydrogenase Total Bilirubin Direct Bilirubin CK-MB (CK-2) C-Reactive Protein NT-Pro-B Natriuret Pep Total Protein Albumin Arterial Blood Glucose Urine WBC (Auto) Urine Creatinine 01/09/20 01/09/20 01/09/20 04:11 05:38 22:58 WBC RBC Hgb Hct MCHC RDW MCV MCH Lymph % (Auto) [place] % (Auto) [place] # Eos # Lymph # (Auto) [place] # (Auto) Eos # (Auto) Seg Neutrophils % Seg Neuts % (Manual) Baso # (Auto) Lymphocytes % (Manual) Monocytes % (Manual) Eosinophils % (Manual) Basophils % (Manual) Seg Neutrophils # Seg Neutrophils # Man Lymphocytes # (Manual) Monocytes # (Manual) Eosinophils # (Manual) Nucleated RBC % Basophils # (Manual) PT INR APTT Heparin Anti-Xa Level ABG pH POC ABG pO2 ABG pO2 ABG HCO3 ABG O2 Saturation ABG Base Excess POC ABG pCO2 ABG Hemoglobin ABG Oxyhemoglobin ABG Sodium ABG Chloride ABG Glucose Oxyhemoglobin Sodium 147 H Potassium 3.3 L D Chloride Carbon Dioxide 32 H BUN Creatinine 0.6 L Glucose 106 H POC Glucose 107 H 113 H Lactic Acid Calcium Phosphorus Magnesium AST ALT Lactate Dehydrogenase Total Bilirubin Direct Bilirubin CK-MB (CK-2) C-Reactive Protein NT-Pro-B Natriuret Pep Total Protein Albumin Arterial Blood Glucose Urine WBC (Auto) Urine Creatinine 01/10/20 01/10/20 01/10/20 04:05 11:36 17:54 WBC RBC Hgb Hct MCHC RDW MCV MCH Lymph % (Auto) [place] % (Auto) [place] # Eos # Lymph # (Auto) [place] # (Auto) Eos # (Auto) Seg Neutrophils % Seg Neuts % (Manual) Baso # (Auto) Lymphocytes % (Manual) Monocytes % (Manual) Eosinophils % (Manual) Basophils % (Manual) Seg Neutrophils # Seg Neutrophils # Man Lymphocytes # (Manual) Monocytes # (Manual) Eosinophils # (Manual) Nucleated RBC % Basophils # (Manual) PT INR APTT Heparin Anti-Xa Level ABG pH POC ABG pO2 ABG pO2 ABG HCO3 ABG O2 Saturation ABG Base Excess POC ABG pCO2 ABG Hemoglobin ABG Oxyhemoglobin ABG Sodium ABG Chloride ABG Glucose Oxyhemoglobin Sodium Potassium Chloride Carbon Dioxide BUN Creatinine 0.7 L Glucose 110 H POC Glucose 129 H 117 H Lactic Acid Calcium Phosphorus Magnesium AST ALT Lactate Dehydrogenase Total Bilirubin Direct Bilirubin CK-MB (CK-2) C-Reactive Protein NT-Pro-B Natriuret Pep Total Protein Albumin Arterial Blood Glucose Urine WBC (Auto) Urine Creatinine 01/10/20 01/11/20 01/11/20 23:52 03:19 12:09 WBC RBC Hgb Hct MCHC RDW MCV MCH Lymph % (Auto) [place] % (Auto) [place] # Eos # Lymph # (Auto) [place] # (Auto) Eos # (Auto) Seg Neutrophils % Seg Neuts % (Manual) Baso # (Auto) Lymphocytes % (Manual) Monocytes % (Manual) Eosinophils % (Manual) Basophils % (Manual) Seg Neutrophils # Seg Neutrophils # Man Lymphocytes # (Manual) Monocytes # (Manual) Eosinophils # (Manual) Nucleated RBC % Basophils # (Manual) PT INR APTT Heparin Anti-Xa Level ABG pH POC ABG pO2 ABG pO2 ABG HCO3 ABG O2 Saturation ABG Base Excess POC ABG pCO2 ABG Hemoglobin ABG Oxyhemoglobin ABG Sodium ABG Chloride ABG Glucose Oxyhemoglobin Sodium Potassium Chloride Carbon Dioxide BUN Creatinine Glucose POC Glucose 117 H 136 H 115 H Lactic Acid Calcium Phosphorus Magnesium AST ALT Lactate Dehydrogenase Total Bilirubin Direct Bilirubin CK-MB (CK-2) C-Reactive Protein NT-Pro-B Natriuret Pep Total Protein Albumin Arterial Blood Glucose Urine WBC (Auto) Urine Creatinine 01/11/20 01/11/20 01/12/20 18:27 23:28 00:23 WBC RBC Hgb 9.8 L Hct 31.6 L MCHC 31 L RDW 17.8 H MCV 83 L MCH 26 L Lymph % (Auto) [place] % (Auto) 8.0 H [place] # Eos # Lymph # (Auto) [place] # (Auto) Eos # (Auto) Seg Neutrophils % Seg Neuts % (Manual) Baso # (Auto) Lymphocytes % (Manual) Monocytes % (Manual) Eosinophils % (Manual) Basophils % (Manual) Seg Neutrophils # Seg Neutrophils # Man Lymphocytes # (Manual) Monocytes # (Manual) Eosinophils # (Manual) Nucleated RBC % Basophils # (Manual) PT INR APTT Heparin Anti-Xa Level ABG pH POC ABG pO2 ABG pO2 ABG HCO3 ABG O2 Saturation ABG Base Excess POC ABG pCO2 ABG Hemoglobin ABG Oxyhemoglobin ABG Sodium ABG Chloride ABG Glucose Oxyhemoglobin Sodium Potassium Chloride Carbon Dioxide BUN Creatinine Glucose POC Glucose 118 H 122 H Lactic Acid Calcium Phosphorus Magnesium AST ALT Lactate Dehydrogenase Total Bilirubin Direct Bilirubin CK-MB (CK-2) C-Reactive Protein NT-Pro-B Natriuret Pep Total Protein Albumin Arterial Blood Glucose Urine WBC (Auto) Urine Creatinine 01/12/20 01/12/20 01/12/20 00:23 04:18 04:18 WBC RBC Hgb 9.6 L Hct 30.9 L MCHC 31 L RDW 17.3 H MCV 81 L MCH 25 L Lymph % (Auto) [place] % (Auto) [place] # Eos # Lymph # (Auto) [place] # (Auto) Eos # (Auto) Seg Neutrophils % Seg Neuts % (Manual) Baso # (Auto) Lymphocytes % (Manual) Monocytes % (Manual) Eosinophils % (Manual) Basophils % (Manual) Seg Neutrophils # Seg Neutrophils # Man Lymphocytes # (Manual) Monocytes # (Manual) Eosinophils # (Manual) Nucleated RBC % Basophils # (Manual) PT INR APTT Heparin Anti-Xa Level ABG pH POC ABG pO2 ABG pO2 ABG HCO3 ABG O2 Saturation ABG Base Excess POC ABG pCO2 ABG Hemoglobin ABG Oxyhemoglobin ABG Sodium ABG Chloride ABG Glucose Oxyhemoglobin Sodium Potassium Chloride Carbon Dioxide BUN Creatinine 0.7 L 0.7 L Glucose 111 H 108 H POC Glucose Lactic Acid Calcium Phosphorus Magnesium AST ALT Lactate Dehydrogenase Total Bilirubin Direct Bilirubin CK-MB (CK-2) C-Reactive Protein NT-Pro-B Natriuret Pep Total Protein Albumin 2.6 L Arterial Blood Glucose Urine WBC (Auto) Urine Creatinine 01/12/20 01/12/20 01/12/20 06:03 12:27 13:58 WBC RBC Hgb Hct MCHC RDW MCV MCH Lymph % (Auto) [place] % (Auto) [place] # Eos # Lymph # (Auto) [place] # (Auto) Eos # (Auto) Seg Neutrophils % Seg Neuts % (Manual) Baso # (Auto) Lymphocytes % (Manual) Monocytes % (Manual) Eosinophils % (Manual) Basophils % (Manual) Seg Neutrophils # Seg Neutrophils # Man Lymphocytes # (Manual) Monocytes # (Manual) Eosinophils # (Manual) Nucleated RBC % Basophils # (Manual) PT INR APTT Heparin Anti-Xa Level ABG pH 7.453 H POC ABG pO2 76.6 L ABG pO2 ABG HCO3 ABG O2 Saturation ABG Base Excess POC ABG pCO2 ABG Hemoglobin 10.3 L ABG Oxyhemoglobin ABG Sodium ABG Chloride ABG Glucose 99 H Oxyhemoglobin Sodium Potassium Chloride Carbon Dioxide BUN Creatinine Glucose POC Glucose 128 H 121 H Lactic Acid Calcium Phosphorus Magnesium AST ALT Lactate Dehydrogenase Total Bilirubin Direct Bilirubin CK-MB (CK-2) C-Reactive Protein NT-Pro-B Natriuret Pep Total Protein Albumin Arterial Blood Glucose 99 H Urine WBC (Auto) Urine Creatinine 01/12/20 01/13/20 01/13/20 18:24 12:01 17:46 WBC RBC Hgb Hct MCHC RDW MCV MCH Lymph % (Auto) [place] % (Auto) [place] # Eos # Lymph # (Auto) [place] # (Auto) Eos # (Auto) Seg Neutrophils % Seg Neuts % (Manual) Baso # (Auto) Lymphocytes % (Manual) Monocytes % (Manual) Eosinophils % (Manual) Basophils % (Manual) Seg Neutrophils # Seg Neutrophils # Man Lymphocytes # (Manual) Monocytes # (Manual) Eosinophils # (Manual) Nucleated RBC % Basophils # (Manual) PT INR APTT Heparin Anti-Xa Level ABG pH POC ABG pO2 ABG pO2 ABG HCO3 ABG O2 Saturation ABG Base Excess POC ABG pCO2 ABG Hemoglobin ABG Oxyhemoglobin ABG Sodium ABG Chloride ABG Glucose Oxyhemoglobin Sodium Potassium Chloride Carbon Dioxide BUN Creatinine Glucose POC Glucose 119 H 107 H 124 H Lactic Acid Calcium Phosphorus Magnesium AST ALT Lactate Dehydrogenase Total Bilirubin Direct Bilirubin CK-MB (CK-2) C-Reactive Protein NT-Pro-B Natriuret Pep Total Protein Albumin Arterial Blood Glucose Urine WBC (Auto) Urine Creatinine 01/13/20 01/14/20 01/14/20 20:40 00:10 05:33 WBC RBC Hgb Hct MCHC RDW MCV MCH Lymph % (Auto) [place] % (Auto) [place] # Eos # Lymph # (Auto) [place] # (Auto) Eos # (Auto) Seg Neutrophils % Seg Neuts % (Manual) Baso # (Auto) Lymphocytes % (Manual) Monocytes % (Manual) Eosinophils % (Manual) Basophils % (Manual) Seg Neutrophils # Seg Neutrophils # Man Lymphocytes # (Manual) Monocytes # (Manual) Eosinophils # (Manual) Nucleated RBC % Basophils # (Manual) PT INR APTT Heparin Anti-Xa Level ABG pH POC ABG pO2 ABG pO2 65.3 L ABG HCO3 31.8 H ABG O2 Saturation 93.5 L ABG Base Excess 6.7 H POC ABG pCO2 ABG Hemoglobin 13.3 L ABG Oxyhemoglobin ABG Sodium ABG Chloride ABG Glucose Oxyhemoglobin 90.9 L Sodium Potassium Chloride Carbon Dioxide BUN Creatinine Glucose POC Glucose 111 H 111 H Lactic Acid Calcium Phosphorus Magnesium AST ALT Lactate Dehydrogenase Total Bilirubin Direct Bilirubin CK-MB (CK-2) C-Reactive Protein NT-Pro-B Natriuret Pep Total Protein Albumin Arterial Blood Glucose Urine WBC (Auto) Urine Creatinine 01/14/20 01/14/20 01/14/20 12:10 16:14 16:14 WBC RBC Hgb 10.6 L Hct 34.2 L MCHC 31 L RDW 18.3 H MCV 83 L MCH 26 L Lymph % (Auto) [place] % (Auto) 7.4 H [place] # Eos # Lymph # (Auto) [place] # (Auto) Eos # (Auto) Seg Neutrophils % 71.9 H Seg Neuts % (Manual) Baso # (Auto) Lymphocytes % (Manual) Monocytes % (Manual) Eosinophils % (Manual) Basophils % (Manual) Seg Neutrophils # Seg Neutrophils # Man Lymphocytes # (Manual) Monocytes # (Manual) Eosinophils # (Manual) Nucleated RBC % Basophils # (Manual) PT INR APTT Heparin Anti-Xa Level ABG pH POC ABG pO2 ABG pO2 ABG HCO3 ABG O2 Saturation ABG Base Excess POC ABG pCO2 ABG Hemoglobin ABG Oxyhemoglobin ABG Sodium ABG Chloride ABG Glucose Oxyhemoglobin Sodium Potassium Chloride Carbon Dioxide 31 H BUN Creatinine 0.6 L Glucose 131 H POC Glucose 139 H Lactic Acid Calcium Phosphorus Magnesium AST ALT Lactate Dehydrogenase Total Bilirubin Direct Bilirubin CK-MB (CK-2) C-Reactive Protein NT-Pro-B Natriuret Pep Total Protein Albumin Arterial Blood Glucose Urine WBC (Auto) Urine Creatinine 01/14/20 01/15/20 01/15/20 18:05 00:52 05:35 WBC RBC Hgb Hct MCHC RDW MCV MCH Lymph % (Auto) [place] % (Auto) [place] # Eos # Lymph # (Auto) [place] # (Auto) Eos # (Auto) Seg Neutrophils % Seg Neuts % (Manual) Baso # (Auto) Lymphocytes % (Manual) Monocytes % (Manual) Eosinophils % (Manual) Basophils % (Manual) Seg Neutrophils # Seg Neutrophils # Man Lymphocytes # (Manual) Monocytes # (Manual) Eosinophils # (Manual) Nucleated RBC % Basophils # (Manual) PT INR APTT Heparin Anti-Xa Level ABG pH POC ABG pO2 ABG pO2 ABG HCO3 ABG O2 Saturation ABG Base Excess POC ABG pCO2 ABG Hemoglobin ABG Oxyhemoglobin ABG Sodium ABG Chloride ABG Glucose Oxyhemoglobin Sodium Potassium Chloride Carbon Dioxide BUN Creatinine Glucose POC Glucose 147 H 140 H 159 H Lactic Acid Calcium Phosphorus Magnesium AST ALT Lactate Dehydrogenase Total Bilirubin Direct Bilirubin CK-MB (CK-2) C-Reactive Protein NT-Pro-B Natriuret Pep Total Protein Albumin Arterial Blood Glucose Urine WBC (Auto) Urine Creatinine 01/15/20 01/15/20 01/16/20 12:52 17:43 00:32 WBC RBC Hgb Hct MCHC RDW MCV MCH Lymph % (Auto) [place] % (Auto) [place] # Eos # Lymph # (Auto) [place] # (Auto) Eos # (Auto) Seg Neutrophils % Seg Neuts % (Manual) Baso # (Auto) Lymphocytes % (Manual) Monocytes % (Manual) Eosinophils % (Manual) Basophils % (Manual) Seg Neutrophils # Seg Neutrophils # Man Lymphocytes # (Manual) Monocytes # (Manual) Eosinophils # (Manual) Nucleated RBC % Basophils # (Manual) PT INR APTT Heparin Anti-Xa Level ABG pH POC ABG pO2 ABG pO2 ABG HCO3 ABG O2 Saturation ABG Base Excess POC ABG pCO2 ABG Hemoglobin ABG Oxyhemoglobin ABG Sodium ABG Chloride ABG Glucose Oxyhemoglobin Sodium Potassium Chloride Carbon Dioxide BUN Creatinine Glucose POC Glucose 164 H 167 H 153 H Lactic Acid Calcium Phosphorus Magnesium AST ALT Lactate Dehydrogenase Total Bilirubin Direct Bilirubin CK-MB (CK-2) C-Reactive Protein NT-Pro-B Natriuret Pep Total Protein Albumin Arterial Blood Glucose Urine WBC (Auto) Urine Creatinine 01/16/20 01/16/20 01/17/20 05:46 11:48 06:38 WBC RBC Hgb Hct MCHC RDW MCV MCH Lymph % (Auto) [place] % (Auto) [place] # Eos # Lymph # (Auto) [place] # (Auto) Eos # (Auto) Seg Neutrophils % Seg Neuts % (Manual) Baso # (Auto) Lymphocytes % (Manual) Monocytes % (Manual) Eosinophils % (Manual) Basophils % (Manual) Seg Neutrophils # Seg Neutrophils # Man Lymphocytes # (Manual) Monocytes # (Manual) Eosinophils # (Manual) Nucleated RBC % Basophils # (Manual) PT INR APTT Heparin Anti-Xa Level ABG pH POC ABG pO2 ABG pO2 ABG HCO3 ABG O2 Saturation ABG Base Excess POC ABG pCO2 ABG Hemoglobin ABG Oxyhemoglobin ABG Sodium ABG Chloride ABG Glucose Oxyhemoglobin Sodium Potassium Chloride Carbon Dioxide BUN Creatinine Glucose POC Glucose 163 H 155 H 116 H Lactic Acid Calcium Phosphorus Magnesium AST ALT Lactate Dehydrogenase Total Bilirubin Direct Bilirubin CK-MB (CK-2) C-Reactive Protein NT-Pro-B Natriuret Pep Total Protein Albumin Arterial Blood Glucose Urine WBC (Auto) Urine Creatinine 01/17/20 01/17/20 01/18/20 11:36 17:43 00:12 WBC RBC Hgb Hct MCHC RDW MCV MCH Lymph % (Auto) [place] % (Auto) [place] # Eos # Lymph # (Auto) [place] # (Auto) Eos # (Auto) Seg Neutrophils % Seg Neuts % (Manual) Baso # (Auto) Lymphocytes % (Manual) Monocytes % (Manual) Eosinophils % (Manual) Basophils % (Manual) Seg Neutrophils # Seg Neutrophils # Man Lymphocytes # (Manual) Monocytes # (Manual) Eosinophils # (Manual) Nucleated RBC % Basophils # (Manual) PT INR APTT Heparin Anti-Xa Level ABG pH POC ABG pO2 ABG pO2 ABG HCO3 ABG O2 Saturation ABG Base Excess POC ABG pCO2 ABG Hemoglobin ABG Oxyhemoglobin ABG Sodium ABG Chloride ABG Glucose Oxyhemoglobin Sodium Potassium Chloride Carbon Dioxide BUN Creatinine Glucose POC Glucose 110 H 134 H 108 H Lactic Acid Calcium Phosphorus Magnesium AST ALT Lactate Dehydrogenase Total Bilirubin Direct Bilirubin CK-MB (CK-2) C-Reactive Protein NT-Pro-B Natriuret Pep Total Protein Albumin Arterial Blood Glucose Urine WBC (Auto) Urine Creatinine 01/18/20 01/18/20 01/18/20 05:37 06:46 06:46 WBC RBC Hgb 10.1 L Hct 32.2 L MCHC 31 L RDW 18.1 H MCV 81 L MCH 25 L Lymph % (Auto) [place] % (Auto) [place] # Eos # Lymph # (Auto) [place] # (Auto) Eos # (Auto) Seg Neutrophils % 71.9 H Seg Neuts % (Manual) Baso # (Auto) Lymphocytes % (Manual) Monocytes % (Manual) Eosinophils % (Manual) Basophils % (Manual) Seg Neutrophils # Seg Neutrophils # Man Lymphocytes # (Manual) Monocytes # (Manual) Eosinophils # (Manual) Nucleated RBC % Basophils # (Manual) PT INR APTT Heparin Anti-Xa Level ABG pH POC ABG pO2 ABG pO2 ABG HCO3 ABG O2 Saturation ABG Base Excess POC ABG pCO2 ABG Hemoglobin ABG Oxyhemoglobin ABG Sodium ABG Chloride ABG Glucose Oxyhemoglobin Sodium Potassium Chloride Carbon Dioxide BUN Creatinine 0.7 L Glucose 155 H POC Glucose 168 H Lactic Acid Calcium Phosphorus Magnesium AST ALT Lactate Dehydrogenase Total Bilirubin Direct Bilirubin CK-MB (CK-2) C-Reactive Protein NT-Pro-B Natriuret Pep Total Protein Albumin Arterial Blood Glucose Urine WBC (Auto) Urine Creatinine 01/18/20 01/18/20 01/18/20 12:05 17:14 23:28 WBC RBC Hgb Hct MCHC RDW MCV MCH Lymph % (Auto) [place] % (Auto) [place] # Eos # Lymph # (Auto) [place] # (Auto) Eos # (Auto) Seg Neutrophils % Seg Neuts % (Manual) Baso # (Auto) Lymphocytes % (Manual) Monocytes % (Manual) Eosinophils % (Manual) Basophils % (Manual) Seg Neutrophils # Seg Neutrophils # Man Lymphocytes # (Manual) Monocytes # (Manual) Eosinophils # (Manual) Nucleated RBC % Basophils # (Manual) PT INR APTT Heparin Anti-Xa Level ABG pH POC ABG pO2 ABG pO2 ABG HCO3 ABG O2 Saturation ABG Base Excess POC ABG pCO2 ABG Hemoglobin ABG Oxyhemoglobin ABG Sodium ABG Chloride ABG Glucose Oxyhemoglobin Sodium Potassium Chloride Carbon Dioxide BUN Creatinine Glucose POC Glucose 128 H 126 H 128 H Lactic Acid Calcium Phosphorus Magnesium AST ALT Lactate Dehydrogenase Total Bilirubin Direct Bilirubin CK-MB (CK-2) C-Reactive Protein NT-Pro-B Natriuret Pep Total Protein Albumin Arterial Blood Glucose Urine WBC (Auto) Urine Creatinine 01/19/20 01/19/20 01/19/20 05:39 12:33 17:36 WBC RBC Hgb Hct MCHC RDW MCV MCH Lymph % (Auto) [place] % (Auto) [place] # Eos # Lymph # (Auto) [place] # (Auto) Eos # (Auto) Seg Neutrophils % Seg Neuts % (Manual) Baso # (Auto) Lymphocytes % (Manual) Monocytes % (Manual) Eosinophils % (Manual) Basophils % (Manual) Seg Neutrophils # Seg Neutrophils # Man Lymphocytes # (Manual) Monocytes # (Manual) Eosinophils # (Manual) Nucleated RBC % Basophils # (Manual) PT INR APTT Heparin Anti-Xa Level ABG pH POC ABG pO2 ABG pO2 ABG HCO3 ABG O2 Saturation ABG Base Excess POC ABG pCO2 ABG Hemoglobin ABG Oxyhemoglobin ABG Sodium ABG Chloride ABG Glucose Oxyhemoglobin Sodium Potassium Chloride Carbon Dioxide BUN Creatinine Glucose POC Glucose 164 H 171 H 152 H Lactic Acid Calcium Phosphorus Magnesium AST ALT Lactate Dehydrogenase Total Bilirubin Direct Bilirubin CK-MB (CK-2) C-Reactive Protein NT-Pro-B Natriuret Pep Total Protein Albumin Arterial Blood Glucose Urine WBC (Auto) Urine Creatinine 01/20/20 01/20/20 01/20/20 00:12 05:20 05:35 WBC RBC Hgb 9.2 L Hct 29.4 L MCHC 31 L RDW 17.9 H MCV 81 L MCH 25 L Lymph % (Auto) Canadian % (Auto) Canadian # Eos # Lymph # (Auto) [place] # (Auto) Eos # (Auto) Seg Neutrophils % Seg Neuts % (Manual) Baso # (Auto) Lymphocytes % (Manual) Monocytes % (Manual) Eosinophils % (Manual) Basophils % (Manual) Seg Neutrophils # Seg Neutrophils # Man Lymphocytes # (Manual) Monocytes # (Manual) Eosinophils # (Manual) Nucleated RBC % Basophils # (Manual) PT INR APTT Heparin Anti-Xa Level ABG pH POC ABG pO2 ABG pO2 ABG HCO3 ABG O2 Saturation ABG Base Excess POC ABG pCO2 ABG Hemoglobin ABG Oxyhemoglobin ABG Sodium ABG Chloride ABG Glucose Oxyhemoglobin Sodium Potassium Chloride Carbon Dioxide BUN Creatinine Glucose POC Glucose 120 H 136 H Lactic Acid Calcium Phosphorus Magnesium AST ALT Lactate Dehydrogenase Total Bilirubin Direct Bilirubin CK-MB (CK-2) C-Reactive Protein NT-Pro-B Natriuret Pep Total Protein Albumin Arterial Blood Glucose Urine WBC (Auto) Urine Creatinine 01/20/20 01/20/20 01/20/20 05:40 11:58 14:55 WBC RBC Hgb 9.0 L Hct 28.3 L MCHC RDW MCV MCH Lymph % (Auto) [place] % (Auto) [place] # Eos # Lymph # (Auto) [place] # (Auto) Eos # (Auto) Seg Neutrophils % Seg Neuts % (Manual) Baso # (Auto) Lymphocytes % (Manual) Monocytes % (Manual) Eosinophils % (Manual) Basophils % (Manual) Seg Neutrophils # Seg Neutrophils # Man Lymphocytes # (Manual) Monocytes # (Manual) Eosinophils # (Manual) Nucleated RBC % Basophils # (Manual) PT INR APTT Heparin Anti-Xa Level ABG pH POC ABG pO2 ABG pO2 ABG HCO3 ABG O2 Saturation ABG Base Excess POC ABG pCO2 ABG Hemoglobin ABG Oxyhemoglobin ABG Sodium ABG Chloride ABG Glucose Oxyhemoglobin Sodium Potassium Chloride Carbon Dioxide 32 H BUN 22 H Creatinine 0.7 L Glucose 128 H POC Glucose 152 H Lactic Acid Calcium Phosphorus Magnesium AST ALT Lactate Dehydrogenase Total Bilirubin Direct Bilirubin CK-MB (CK-2) C-Reactive Protein NT-Pro-B Natriuret Pep Total Protein Albumin Arterial Blood Glucose Urine WBC (Auto) Urine Creatinine 01/20/20 01/20/20 01/20/20 14:55 18:14 21:35 WBC RBC Hgb Hct MCHC RDW MCV MCH Lymph % (Auto) [place] % (Auto) [place] # Eos # Lymph # (Auto) [place] # (Auto) Eos # (Auto) Seg Neutrophils % Seg Neuts % (Manual) Baso # (Auto) Lymphocytes % (Manual) Monocytes % (Manual) Eosinophils % (Manual) Basophils % (Manual) Seg Neutrophils # Seg Neutrophils # Man Lymphocytes # (Manual) Monocytes # (Manual) Eosinophils # (Manual) Nucleated RBC % Basophils # (Manual) PT 20.4 H INR 1.72 H APTT 40.6 H Heparin Anti-Xa Level > 2.00 H ABG pH POC ABG pO2 ABG pO2 ABG HCO3 ABG O2 Saturation ABG Base Excess POC ABG pCO2 ABG Hemoglobin ABG Oxyhemoglobin ABG Sodium ABG Chloride ABG Glucose Oxyhemoglobin Sodium Potassium Chloride Carbon Dioxide BUN Creatinine Glucose POC Glucose 150 H Lactic Acid Calcium Phosphorus Magnesium AST ALT Lactate Dehydrogenase Total Bilirubin Direct Bilirubin CK-MB (CK-2) C-Reactive Protein NT-Pro-B Natriuret Pep Total Protein Albumin Arterial Blood Glucose Urine WBC (Auto) Urine Creatinine 01/21/20 01/21/20 01/21/20 00:30 05:47 05:59 WBC RBC Hgb Hct MCHC RDW MCV MCH Lymph % (Auto) [place] % (Auto) [place] # Eos # Lymph # (Auto) [place] # (Auto) Eos # (Auto) Seg Neutrophils % Seg Neuts % (Manual) Baso # (Auto) Lymphocytes % (Manual) Monocytes % (Manual) Eosinophils % (Manual) Basophils % (Manual) Seg Neutrophils # Seg Neutrophils # Man Lymphocytes # (Manual) Monocytes # (Manual) Eosinophils # (Manual) Nucleated RBC % Basophils # (Manual) PT INR APTT Heparin Anti-Xa Level 1.93 H ABG pH POC ABG pO2 ABG pO2 ABG HCO3 ABG O2 Saturation ABG Base Excess POC ABG pCO2 ABG Hemoglobin ABG Oxyhemoglobin ABG Sodium ABG Chloride ABG Glucose Oxyhemoglobin Sodium Potassium Chloride Carbon Dioxide BUN Creatinine Glucose POC Glucose 126 H 148 H Lactic Acid Calcium Phosphorus Magnesium AST ALT Lactate Dehydrogenase Total Bilirubin Direct Bilirubin CK-MB (CK-2) C-Reactive Protein NT-Pro-B Natriuret Pep Total Protein Albumin Arterial Blood Glucose Urine WBC (Auto) Urine Creatinine 01/21/20 01/21/20 01/21/20 12:32 18:20 23:54 WBC RBC Hgb Hct MCHC RDW MCV MCH Lymph % (Auto) [place] % (Auto) [place] # Eos # Lymph # (Auto) [place] # (Auto) Eos # (Auto) Seg Neutrophils % Seg Neuts % (Manual) Baso # (Auto) Lymphocytes % (Manual) Monocytes % (Manual) Eosinophils % (Manual) Basophils % (Manual) Seg Neutrophils # Seg Neutrophils # Man Lymphocytes # (Manual) Monocytes # (Manual) Eosinophils # (Manual) Nucleated RBC % Basophils # (Manual) PT INR APTT Heparin Anti-Xa Level 1.28 H ABG pH POC ABG pO2 ABG pO2 ABG HCO3 ABG O2 Saturation ABG Base Excess POC ABG pCO2 ABG Hemoglobin ABG Oxyhemoglobin ABG Sodium ABG Chloride ABG Glucose Oxyhemoglobin Sodium Potassium Chloride Carbon Dioxide BUN Creatinine Glucose POC Glucose 112 H 146 H Lactic Acid Calcium Phosphorus Magnesium AST ALT Lactate Dehydrogenase Total Bilirubin Direct Bilirubin CK-MB (CK-2) C-Reactive Protein NT-Pro-B Natriuret Pep Total Protein Albumin Arterial Blood Glucose Urine WBC (Auto) Urine Creatinine 01/22/20 01/22/20 01/22/20 04:45 04:45 05:48 WBC RBC Hgb 9.3 L Hct 29.0 L MCHC RDW MCV MCH Lymph % (Auto) [place] % (Auto) [place] # Eos # Lymph # (Auto) [place] # (Auto) Eos # (Auto) Seg Neutrophils % Seg Neuts % (Manual) Baso # (Auto) Lymphocytes % (Manual) Monocytes % (Manual) Eosinophils % (Manual) Basophils % (Manual) Seg Neutrophils # Seg Neutrophils # Man Lymphocytes # (Manual) Monocytes # (Manual) Eosinophils # (Manual) Nucleated RBC % Basophils # (Manual) PT INR APTT Heparin Anti-Xa Level 1.34 H ABG pH POC ABG pO2 ABG pO2 ABG HCO3 ABG O2 Saturation ABG Base Excess POC ABG pCO2 ABG Hemoglobin ABG Oxyhemoglobin ABG Sodium ABG Chloride ABG Glucose Oxyhemoglobin Sodium Potassium Chloride Carbon Dioxide BUN Creatinine Glucose POC Glucose 142 H Lactic Acid Calcium Phosphorus Magnesium AST ALT Lactate Dehydrogenase Total Bilirubin Direct Bilirubin CK-MB (CK-2) C-Reactive Protein NT-Pro-B Natriuret Pep Total Protein Albumin Arterial Blood Glucose Urine WBC (Auto) Urine Creatinine 01/22/20 01/22/20 01/22/20 08:09 08:22 09:58 WBC RBC Hgb Hct MCHC RDW MCV MCH Lymph % (Auto) [place] % (Auto) [place] # Eos # Lymph # (Auto) [place] # (Auto) Eos # (Auto) Seg Neutrophils % Seg Neuts % (Manual) Baso # (Auto) Lymphocytes % (Manual) Monocytes % (Manual) Eosinophils % (Manual) Basophils % (Manual) Seg Neutrophils # Seg Neutrophils # Man Lymphocytes # (Manual) Monocytes # (Manual) Eosinophils # (Manual) Nucleated RBC % Basophils # (Manual) PT 16.9 H INR 1.34 H APTT Heparin Anti-Xa Level ABG pH POC ABG pO2 ABG pO2 ABG HCO3 ABG O2 Saturation ABG Base Excess POC ABG pCO2 ABG Hemoglobin ABG Oxyhemoglobin ABG Sodium ABG Chloride ABG Glucose Oxyhemoglobin Sodium Potassium Chloride 97.8 L Carbon Dioxide BUN 29 H Creatinine Glucose 128 H POC Glucose 131 H Lactic Acid Calcium Phosphorus Magnesium AST ALT Lactate Dehydrogenase Total Bilirubin Direct Bilirubin CK-MB (CK-2) C-Reactive Protein NT-Pro-B Natriuret Pep Total Protein Albumin Arterial Blood Glucose Urine WBC (Auto) Urine Creatinine 01/22/20 01/22/20 01/22/20 12:44 16:13 18:18 WBC RBC Hgb Hct MCHC RDW MCV MCH Lymph % (Auto) [place] % (Auto) [place] # Eos # Lymph # (Auto) [place] # (Auto) Eos # (Auto) Seg Neutrophils % Seg Neuts % (Manual) Baso # (Auto) Lymphocytes % (Manual) Monocytes % (Manual) Eosinophils % (Manual) Basophils % (Manual) Seg Neutrophils # Seg Neutrophils # Man Lymphocytes # (Manual) Monocytes # (Manual) Eosinophils # (Manual) Nucleated RBC % Basophils # (Manual) PT INR APTT Heparin Anti-Xa Level ABG pH POC ABG pO2 ABG pO2 ABG HCO3 ABG O2 Saturation ABG Base Excess POC ABG pCO2 ABG Hemoglobin ABG Oxyhemoglobin ABG Sodium ABG Chloride ABG Glucose Oxyhemoglobin Sodium Potassium Chloride Carbon Dioxide BUN Creatinine Glucose POC Glucose 156 H 133 H 155 H Lactic Acid Calcium Phosphorus Magnesium AST ALT Lactate Dehydrogenase Total Bilirubin Direct Bilirubin CK-MB (CK-2) C-Reactive Protein NT-Pro-B Natriuret Pep Total Protein Albumin Arterial Blood Glucose Urine WBC (Auto) Urine Creatinine 01/22/20 01/23/20 01/23/20 23:22 05:37 12:59 WBC RBC Hgb Hct MCHC RDW MCV MCH Lymph % (Auto) [place] % (Auto) [place] # Eos # Lymph # (Auto) [place] # (Auto) Eos # (Auto) Seg Neutrophils % Seg Neuts % (Manual) Baso # (Auto) Lymphocytes % (Manual) Monocytes % (Manual) Eosinophils % (Manual) Basophils % (Manual) Seg Neutrophils # Seg Neutrophils # Man Lymphocytes # (Manual) Monocytes # (Manual) Eosinophils # (Manual) Nucleated RBC % Basophils # (Manual) PT INR APTT Heparin Anti-Xa Level ABG pH POC ABG pO2 ABG pO2 ABG HCO3 ABG O2 Saturation ABG Base Excess POC ABG pCO2 ABG Hemoglobin ABG Oxyhemoglobin ABG Sodium ABG Chloride ABG Glucose Oxyhemoglobin Sodium Potassium Chloride Carbon Dioxide BUN Creatinine Glucose POC Glucose 148 H 163 H 175 H Lactic Acid Calcium Phosphorus Magnesium AST ALT Lactate Dehydrogenase Total Bilirubin Direct Bilirubin CK-MB (CK-2) C-Reactive Protein NT-Pro-B Natriuret Pep Total Protein Albumin Arterial Blood Glucose Urine WBC (Auto) Urine Creatinine 01/23/20 01/23/20 01/24/20 17:28 23:56 04:30 WBC RBC 3.46 L Hgb 8.8 L Hct 27.8 L MCHC RDW 18.2 H MCV 81 L MCH 25 L Lymph % (Auto) [place] % (Auto) 7.8 H [place] # Eos # Lymph # (Auto) [place] # (Auto) Eos # (Auto) Seg Neutrophils % Seg Neuts % (Manual) Baso # (Auto) Lymphocytes % (Manual) Monocytes % (Manual) Eosinophils % (Manual) Basophils % (Manual) Seg Neutrophils # Seg Neutrophils # Man Lymphocytes # (Manual) Monocytes # (Manual) Eosinophils # (Manual) Nucleated RBC % Basophils # (Manual) PT INR APTT Heparin Anti-Xa Level ABG pH POC ABG pO2 ABG pO2 ABG HCO3 ABG O2 Saturation ABG Base Excess POC ABG pCO2 ABG Hemoglobin ABG Oxyhemoglobin ABG Sodium ABG Chloride ABG Glucose Oxyhemoglobin Sodium Potassium Chloride Carbon Dioxide BUN Creatinine Glucose POC Glucose 165 H 177 H Lactic Acid Calcium Phosphorus Magnesium AST ALT Lactate Dehydrogenase Total Bilirubin Direct Bilirubin CK-MB (CK-2) C-Reactive Protein NT-Pro-B Natriuret Pep Total Protein Albumin Arterial Blood Glucose Urine WBC (Auto) Urine Creatinine 01/24/20 01/24/20 01/24/20 04:30 07:18 12:06 WBC RBC Hgb Hct MCHC RDW MCV MCH Lymph % (Auto) [place] % (Auto) [place] # Eos # Lymph # (Auto) [place] # (Auto) Eos # (Auto) Seg Neutrophils % Seg Neuts % (Manual) Baso # (Auto) Lymphocytes % (Manual) Monocytes % (Manual) Eosinophils % (Manual) Basophils % (Manual) Seg Neutrophils # Seg Neutrophils # Man Lymphocytes # (Manual) Monocytes # (Manual) Eosinophils # (Manual) Nucleated RBC % Basophils # (Manual) PT INR APTT Heparin Anti-Xa Level ABG pH POC ABG pO2 ABG pO2 ABG HCO3 ABG O2 Saturation ABG Base Excess POC ABG pCO2 ABG Hemoglobin ABG Oxyhemoglobin ABG Sodium ABG Chloride ABG Glucose Oxyhemoglobin Sodium Potassium Chloride 97.9 L Carbon Dioxide BUN 31 H Creatinine Glucose 146 H POC Glucose 151 H 133 H Lactic Acid Calcium Phosphorus Magnesium AST ALT Lactate Dehydrogenase Total Bilirubin Direct Bilirubin CK-MB (CK-2) C-Reactive Protein NT-Pro-B Natriuret Pep Total Protein Albumin Arterial Blood Glucose Urine WBC (Auto) Urine Creatinine 01/24/20 01/25/20 01/25/20 17:36 00:08 04:25 WBC RBC 3.50 L Hgb 8.7 L Hct 27.9 L MCHC 31 L RDW 18.2 H MCV 80 L MCH 25 L Lymph % (Auto) [place] % (Auto) 8.5 H [place] # Eos # Lymph # (Auto) [place] # (Auto) Eos # (Auto) Seg Neutrophils % Seg Neuts % (Manual) Baso # (Auto) Lymphocytes % (Manual) Monocytes % (Manual) Eosinophils % (Manual) Basophils % (Manual) Seg Neutrophils # Seg Neutrophils # Man Lymphocytes # (Manual) Monocytes # (Manual) Eosinophils # (Manual) Nucleated RBC % Basophils # (Manual) PT INR APTT Heparin Anti-Xa Level ABG pH POC ABG pO2 ABG pO2 ABG HCO3 ABG O2 Saturation ABG Base Excess POC ABG pCO2 ABG Hemoglobin ABG Oxyhemoglobin ABG Sodium ABG Chloride ABG Glucose Oxyhemoglobin Sodium Potassium Chloride Carbon Dioxide BUN Creatinine Glucose POC Glucose 133 H 129 H Lactic Acid Calcium Phosphorus Magnesium AST ALT Lactate Dehydrogenase Total Bilirubin Direct Bilirubin CK-MB (CK-2) C-Reactive Protein NT-Pro-B Natriuret Pep Total Protein Albumin Arterial Blood Glucose Urine WBC (Auto) Urine Creatinine 01/25/20 01/25/20 01/25/20 04:25 05:38 11:52 WBC RBC Hgb Hct MCHC RDW MCV MCH Lymph % (Auto) [place] % (Auto) [place] # Eos # Lymph # (Auto) [place] # (Auto) Eos # (Auto) Seg Neutrophils % Seg Neuts % (Manual) Baso # (Auto) Lymphocytes % (Manual) Monocytes % (Manual) Eosinophils % (Manual) Basophils % (Manual) Seg Neutrophils # Seg Neutrophils # Man Lymphocytes # (Manual) Monocytes # (Manual) Eosinophils # (Manual) Nucleated RBC % Basophils # (Manual) PT INR APTT Heparin Anti-Xa Level ABG pH POC ABG pO2 ABG pO2 ABG HCO3 ABG O2 Saturation ABG Base Excess POC ABG pCO2 ABG Hemoglobin ABG Oxyhemoglobin ABG Sodium ABG Chloride ABG Glucose Oxyhemoglobin Sodium Potassium Chloride Carbon Dioxide BUN 30 H Creatinine Glucose 134 H POC Glucose 129 H 134 H Lactic Acid Calcium Phosphorus Magnesium AST ALT Lactate Dehydrogenase Total Bilirubin Direct Bilirubin CK-MB (CK-2) C-Reactive Protein NT-Pro-B Natriuret Pep Total Protein Albumin Arterial Blood Glucose Urine WBC (Auto) Urine Creatinine 01/25/20 01/25/20 01/26/20 17:13 21:02 00:59 WBC RBC Hgb Hct MCHC RDW MCV MCH Lymph % (Auto) [place] % (Auto) [place] # Eos # Lymph # (Auto) [place] # (Auto) Eos # (Auto) Seg Neutrophils % Seg Neuts % (Manual) Baso # (Auto) Lymphocytes % (Manual) Monocytes % (Manual) Eosinophils % (Manual) Basophils % (Manual) Seg Neutrophils # Seg Neutrophils # Man Lymphocytes # (Manual) Monocytes # (Manual) Eosinophils # (Manual) Nucleated RBC % Basophils # (Manual) PT INR APTT Heparin Anti-Xa Level ABG pH POC ABG pO2 ABG pO2 57.5 L ABG HCO3 31.7 H ABG O2 Saturation 90.3 L ABG Base Excess 6.6 H POC ABG pCO2 ABG Hemoglobin 13.0 L ABG Oxyhemoglobin ABG Sodium ABG Chloride ABG Glucose Oxyhemoglobin 87.5 L Sodium Potassium Chloride Carbon Dioxide BUN Creatinine Glucose POC Glucose 124 H 196 H Lactic Acid Calcium Phosphorus Magnesium AST ALT Lactate Dehydrogenase Total Bilirubin Direct Bilirubin CK-MB (CK-2) C-Reactive Protein NT-Pro-B Natriuret Pep Total Protein Albumin Arterial Blood Glucose Urine WBC (Auto) Urine Creatinine 01/26/20 01/26/20 01/26/20 03:20 05:46 12:46 WBC RBC Hgb 9.2 L Hct 29.4 L MCHC RDW MCV MCH Lymph % (Auto) [place] % (Auto) [place] # Eos # Lymph # (Auto) [place] # (Auto) Eos # (Auto) Seg Neutrophils % Seg Neuts % (Manual) Baso # (Auto) Lymphocytes % (Manual) Monocytes % (Manual) Eosinophils % (Manual) Basophils % (Manual) Seg Neutrophils # Seg Neutrophils # Man Lymphocytes # (Manual) Monocytes # (Manual) Eosinophils # (Manual) Nucleated RBC % Basophils # (Manual) PT INR APTT Heparin Anti-Xa Level ABG pH POC ABG pO2 ABG pO2 ABG HCO3 ABG O2 Saturation ABG Base Excess POC ABG pCO2 ABG Hemoglobin ABG Oxyhemoglobin ABG Sodium ABG Chloride ABG Glucose Oxyhemoglobin Sodium Potassium Chloride Carbon Dioxide BUN Creatinine Glucose POC Glucose 141 H 122 H Lactic Acid Calcium Phosphorus Magnesium AST ALT Lactate Dehydrogenase Total Bilirubin Direct Bilirubin CK-MB (CK-2) C-Reactive Protein NT-Pro-B Natriuret Pep Total Protein Albumin Arterial Blood Glucose Urine WBC (Auto) Urine Creatinine 01/26/20 01/26/20 01/27/20 18:03 23:55 04:47 WBC RBC Hgb Hct MCHC RDW MCV MCH Lymph % (Auto) [place] % (Auto) [place] # Eos # Lymph # (Auto) [place] # (Auto) Eos # (Auto) Seg Neutrophils % Seg Neuts % (Manual) Baso # (Auto) Lymphocytes % (Manual) Monocytes % (Manual) Eosinophils % (Manual) Basophils % (Manual) Seg Neutrophils # Seg Neutrophils # Man Lymphocytes # (Manual) Monocytes # (Manual) Eosinophils # (Manual) Nucleated RBC % Basophils # (Manual) PT INR APTT Heparin Anti-Xa Level ABG pH POC ABG pO2 ABG pO2 ABG HCO3 ABG O2 Saturation ABG Base Excess POC ABG pCO2 ABG Hemoglobin ABG Oxyhemoglobin ABG Sodium ABG Chloride ABG Glucose Oxyhemoglobin Sodium Potassium Chloride Carbon Dioxide BUN 30 H Creatinine 0.7 L Glucose 135 H POC Glucose 142 H 159 H Lactic Acid Calcium Phosphorus Magnesium AST ALT Lactate Dehydrogenase Total Bilirubin Direct Bilirubin CK-MB (CK-2) C-Reactive Protein NT-Pro-B Natriuret Pep Total Protein Albumin Arterial Blood Glucose Urine WBC (Auto) Urine Creatinine 01/27/20 01/27/20 01/27/20 05:43 12:06 17:16 WBC RBC Hgb Hct MCHC RDW MCV MCH Lymph % (Auto) [place] % (Auto) [place] # Eos # Lymph # (Auto) [place] # (Auto) Eos # (Auto) Seg Neutrophils % Seg Neuts % (Manual) Baso # (Auto) Lymphocytes % (Manual) Monocytes % (Manual) Eosinophils % (Manual) Basophils % (Manual) Seg Neutrophils # Seg Neutrophils # Man Lymphocytes # (Manual) Monocytes # (Manual) Eosinophils # (Manual) Nucleated RBC % Basophils # (Manual) PT INR APTT Heparin Anti-Xa Level ABG pH POC ABG pO2 ABG pO2 ABG HCO3 ABG O2 Saturation ABG Base Excess POC ABG pCO2 ABG Hemoglobin ABG Oxyhemoglobin ABG Sodium ABG Chloride ABG Glucose Oxyhemoglobin Sodium Potassium Chloride Carbon Dioxide BUN Creatinine Glucose POC Glucose 143 H 142 H 128 H Lactic Acid Calcium Phosphorus Magnesium AST ALT Lactate Dehydrogenase Total Bilirubin Direct Bilirubin CK-MB (CK-2) C-Reactive Protein NT-Pro-B Natriuret Pep Total Protein Albumin Arterial Blood Glucose Urine WBC (Auto) Urine Creatinine 01/27/20 01/28/20 01/28/20 23:55 04:37 05:55 WBC RBC Hgb 9.4 L Hct 29.9 L MCHC RDW MCV MCH Lymph % (Auto) [place] % (Auto) [place] # Eos # Lymph # (Auto) [place] # (Auto) Eos # (Auto) Seg Neutrophils % Seg Neuts % (Manual) Baso # (Auto) Lymphocytes % (Manual) Monocytes % (Manual) Eosinophils % (Manual) Basophils % (Manual) Seg Neutrophils # Seg Neutrophils # Man Lymphocytes # (Manual) Monocytes # (Manual) Eosinophils # (Manual) Nucleated RBC % Basophils # (Manual) PT INR APTT Heparin Anti-Xa Level ABG pH POC ABG pO2 ABG pO2 ABG HCO3 ABG O2 Saturation ABG Base Excess POC ABG pCO2 ABG Hemoglobin ABG Oxyhemoglobin ABG Sodium ABG Chloride ABG Glucose Oxyhemoglobin Sodium Potassium Chloride Carbon Dioxide BUN Creatinine Glucose POC Glucose 166 H 169 H Lactic Acid Calcium Phosphorus Magnesium AST ALT Lactate Dehydrogenase Total Bilirubin Direct Bilirubin CK-MB (CK-2) C-Reactive Protein NT-Pro-B Natriuret Pep Total Protein Albumin Arterial Blood Glucose Urine WBC (Auto) Urine Creatinine 01/28/20 01/28/20 01/28/20 11:58 17:26 23:46 WBC RBC Hgb Hct MCHC RDW MCV MCH Lymph % (Auto) [place] % (Auto) [place] # Eos # Lymph # (Auto) [place] # (Auto) Eos # (Auto) Seg Neutrophils % Seg Neuts % (Manual) Baso # (Auto) Lymphocytes % (Manual) Monocytes % (Manual) Eosinophils % (Manual) Basophils % (Manual) Seg Neutrophils # Seg Neutrophils # Man Lymphocytes # (Manual) Monocytes # (Manual) Eosinophils # (Manual) Nucleated RBC % Basophils # (Manual) PT INR APTT Heparin Anti-Xa Level ABG pH POC ABG pO2 ABG pO2 ABG HCO3 ABG O2 Saturation ABG Base Excess POC ABG pCO2 ABG Hemoglobin ABG Oxyhemoglobin ABG Sodium ABG Chloride ABG Glucose Oxyhemoglobin Sodium Potassium Chloride Carbon Dioxide BUN Creatinine Glucose POC Glucose 130 H 126 H 150 H Lactic Acid Calcium Phosphorus Magnesium AST ALT Lactate Dehydrogenase Total Bilirubin Direct Bilirubin CK-MB (CK-2) C-Reactive Protein NT-Pro-B Natriuret Pep Total Protein Albumin Arterial Blood Glucose Urine WBC (Auto) Urine Creatinine 01/29/20 01/29/20 01/29/20 04:55 06:00 12:28 WBC RBC Hgb Hct MCHC RDW MCV MCH Lymph % (Auto) [place] % (Auto) [place] # Eos # Lymph # (Auto) [place] # (Auto) Eos # (Auto) Seg Neutrophils % Seg Neuts % (Manual) Baso # (Auto) Lymphocytes % (Manual) Monocytes % (Manual) Eosinophils % (Manual) Basophils % (Manual) Seg Neutrophils # Seg Neutrophils # Man Lymphocytes # (Manual) Monocytes # (Manual) Eosinophils # (Manual) Nucleated RBC % Basophils # (Manual) PT INR APTT Heparin Anti-Xa Level ABG pH POC ABG pO2 ABG pO2 ABG HCO3 ABG O2 Saturation ABG Base Excess POC ABG pCO2 ABG Hemoglobin ABG Oxyhemoglobin ABG Sodium ABG Chloride ABG Glucose Oxyhemoglobin Sodium Potassium Chloride Carbon Dioxide 34 H BUN Creatinine 0.6 L Glucose 152 H POC Glucose 157 H 156 H Lactic Acid Calcium Phosphorus Magnesium AST ALT Lactate Dehydrogenase Total Bilirubin Direct Bilirubin CK-MB (CK-2) C-Reactive Protein NT-Pro-B Natriuret Pep Total Protein Albumin Arterial Blood Glucose Urine WBC (Auto) Urine Creatinine 01/29/20 01/30/20 01/30/20 19:06 00:29 05:39 WBC RBC Hgb Hct MCHC RDW MCV MCH Lymph % (Auto) [place] % (Auto) [place] # Eos # Lymph # (Auto) [place] # (Auto) Eos # (Auto) Seg Neutrophils % Seg Neuts % (Manual) Baso # (Auto) Lymphocytes % (Manual) Monocytes % (Manual) Eosinophils % (Manual) Basophils % (Manual) Seg Neutrophils # Seg Neutrophils # Man Lymphocytes # (Manual) Monocytes # (Manual) Eosinophils # (Manual) Nucleated RBC % Basophils # (Manual) PT INR APTT Heparin Anti-Xa Level ABG pH POC ABG pO2 ABG pO2 ABG HCO3 ABG O2 Saturation ABG Base Excess POC ABG pCO2 ABG Hemoglobin ABG Oxyhemoglobin ABG Sodium ABG Chloride ABG Glucose Oxyhemoglobin Sodium Potassium Chloride Carbon Dioxide BUN Creatinine Glucose POC Glucose 152 H 132 H 159 H Lactic Acid Calcium Phosphorus Magnesium AST ALT Lactate Dehydrogenase Total Bilirubin Direct Bilirubin CK-MB (CK-2) C-Reactive Protein NT-Pro-B Natriuret Pep Total Protein Albumin Arterial Blood Glucose Urine WBC (Auto) Urine Creatinine 01/30/20 01/30/20 01/30/20 12:27 17:42 23:28 WBC RBC Hgb Hct MCHC RDW MCV MCH Lymph % (Auto) [place] % (Auto) [place] # Eos # Lymph # (Auto) [place] # (Auto) Eos # (Auto) Seg Neutrophils % Seg Neuts % (Manual) Baso # (Auto) Lymphocytes % (Manual) Monocytes % (Manual) Eosinophils % (Manual) Basophils % (Manual) Seg Neutrophils # Seg Neutrophils # Man Lymphocytes # (Manual) Monocytes # (Manual) Eosinophils # (Manual) Nucleated RBC % Basophils # (Manual) PT INR APTT Heparin Anti-Xa Level ABG pH POC ABG pO2 ABG pO2 ABG HCO3 ABG O2 Saturation ABG Base Excess POC ABG pCO2 ABG Hemoglobin ABG Oxyhemoglobin ABG Sodium ABG Chloride ABG Glucose Oxyhemoglobin Sodium Potassium Chloride Carbon Dioxide BUN Creatinine Glucose POC Glucose 151 H 144 H 164 H Lactic Acid Calcium Phosphorus Magnesium AST ALT Lactate Dehydrogenase Total Bilirubin Direct Bilirubin CK-MB (CK-2) C-Reactive Protein NT-Pro-B Natriuret Pep Total Protein Albumin Arterial Blood Glucose Urine WBC (Auto) Urine Creatinine 01/31/20 01/31/20 01/31/20 05:51 11:51 18:06 WBC RBC Hgb Hct MCHC RDW MCV MCH Lymph % (Auto) [place] % (Auto) [place] # Eos # Lymph # (Auto) [place] # (Auto) Eos # (Auto) Seg Neutrophils % Seg Neuts % (Manual) Baso # (Auto) Lymphocytes % (Manual) Monocytes % (Manual) Eosinophils % (Manual) Basophils % (Manual) Seg Neutrophils # Seg Neutrophils # Man Lymphocytes # (Manual) Monocytes # (Manual) Eosinophils # (Manual) Nucleated RBC % Basophils # (Manual) PT INR APTT Heparin Anti-Xa Level ABG pH POC ABG pO2 ABG pO2 ABG HCO3 ABG O2 Saturation ABG Base Excess POC ABG pCO2 ABG Hemoglobin ABG Oxyhemoglobin ABG Sodium ABG Chloride ABG Glucose Oxyhemoglobin Sodium Potassium Chloride Carbon Dioxide BUN Creatinine Glucose POC Glucose 131 H 167 H 210 H Lactic Acid Calcium Phosphorus Magnesium AST ALT Lactate Dehydrogenase Total Bilirubin Direct Bilirubin CK-MB (CK-2) C-Reactive Protein NT-Pro-B Natriuret Pep Total Protein Albumin Arterial Blood Glucose Urine WBC (Auto) Urine Creatinine 01/31/20 01/31/20 02/01/20 19:24 Unknown 00:34 WBC RBC Hgb Hct MCHC RDW MCV MCH Lymph % (Auto) [place] % (Auto) [place] # Eos # Lymph # (Auto) [place] # (Auto) Eos # (Auto) Seg Neutrophils % Seg Neuts % (Manual) Baso # (Auto) Lymphocytes % (Manual) Monocytes % (Manual) Eosinophils % (Manual) Basophils % (Manual) Seg Neutrophils # Seg Neutrophils # Man Lymphocytes # (Manual) Monocytes # (Manual) Eosinophils # (Manual) Nucleated RBC % Basophils # (Manual) PT INR APTT Heparin Anti-Xa Level ABG pH POC ABG pO2 ABG pO2 ABG HCO3 ABG O2 Saturation ABG Base Excess POC ABG pCO2 ABG Hemoglobin ABG Oxyhemoglobin ABG Sodium ABG Chloride ABG Glucose Oxyhemoglobin Sodium Potassium Chloride 95.3 L Carbon Dioxide 33 H BUN 36 H Creatinine Glucose 187 H POC Glucose 116 H Lactic Acid Calcium Phosphorus Magnesium AST ALT Lactate Dehydrogenase Total Bilirubin Direct Bilirubin CK-MB (CK-2) C-Reactive Protein NT-Pro-B Natriuret Pep Total Protein Albumin Arterial Blood Glucose Urine WBC (Auto) Urine Creatinine 57.4 H 02/01/20 02/01/20 02/01/20 05:24 10:40 12:29 WBC RBC Hgb Hct MCHC RDW MCV MCH Lymph % (Auto) [place] % (Auto) [place] # Eos # Lymph # (Auto) [place] # (Auto) Eos # (Auto) Seg Neutrophils % Seg Neuts % (Manual) Baso # (Auto) Lymphocytes % (Manual) Monocytes % (Manual) Eosinophils % (Manual) Basophils % (Manual) Seg Neutrophils # Seg Neutrophils # Man Lymphocytes # (Manual) Monocytes # (Manual) Eosinophils # (Manual) Nucleated RBC % Basophils # (Manual) PT INR APTT Heparin Anti-Xa Level ABG pH POC ABG pO2 ABG pO2 ABG HCO3 ABG O2 Saturation ABG Base Excess POC ABG pCO2 ABG Hemoglobin ABG Oxyhemoglobin ABG Sodium ABG Chloride ABG Glucose Oxyhemoglobin Sodium Potassium Chloride Carbon Dioxide BUN Creatinine Glucose POC Glucose 142 H 165 H 151 H Lactic Acid Calcium Phosphorus Magnesium AST ALT Lactate Dehydrogenase Total Bilirubin Direct Bilirubin CK-MB (CK-2) C-Reactive Protein NT-Pro-B Natriuret Pep Total Protein Albumin Arterial Blood Glucose Urine WBC (Auto) Urine Creatinine 02/01/20 02/01/20 02/02/20 17:16 23:23 06:36 WBC RBC Hgb Hct MCHC RDW MCV MCH Lymph % (Auto) [place] % (Auto) [place] # Eos # Lymph # (Auto) [place] # (Auto) Eos # (Auto) Seg Neutrophils % Seg Neuts % (Manual) Baso # (Auto) Lymphocytes % (Manual) Monocytes % (Manual) Eosinophils % (Manual) Basophils % (Manual) Seg Neutrophils # Seg Neutrophils # Man Lymphocytes # (Manual) Monocytes # (Manual) Eosinophils # (Manual) Nucleated RBC % Basophils # (Manual) PT INR APTT Heparin Anti-Xa Level ABG pH POC ABG pO2 ABG pO2 ABG HCO3 ABG O2 Saturation ABG Base Excess POC ABG pCO2 ABG Hemoglobin ABG Oxyhemoglobin ABG Sodium ABG Chloride ABG Glucose Oxyhemoglobin Sodium Potassium Chloride Carbon Dioxide BUN Creatinine Glucose POC Glucose 137 H 145 H 181 H Lactic Acid Calcium Phosphorus Magnesium AST ALT Lactate Dehydrogenase Total Bilirubin Direct Bilirubin CK-MB (CK-2) C-Reactive Protein NT-Pro-B Natriuret Pep Total Protein Albumin Arterial Blood Glucose Urine WBC (Auto) Urine Creatinine 02/02/20 02/02/20 02/02/20 10:01 12:05 17:54 WBC RBC Hgb Hct MCHC RDW MCV MCH Lymph % (Auto) [place] % (Auto) [place] # Eos # Lymph # (Auto) [place] # (Auto) Eos # (Auto) Seg Neutrophils % Seg Neuts % (Manual) Baso # (Auto) Lymphocytes % (Manual) Monocytes % (Manual) Eosinophils % (Manual) Basophils % (Manual) Seg Neutrophils # Seg Neutrophils # Man Lymphocytes # (Manual) Monocytes # (Manual) Eosinophils # (Manual) Nucleated RBC % Basophils # (Manual) PT INR APTT Heparin Anti-Xa Level ABG pH POC ABG pO2 ABG pO2 ABG HCO3 ABG O2 Saturation ABG Base Excess POC ABG pCO2 ABG Hemoglobin ABG Oxyhemoglobin ABG Sodium ABG Chloride ABG Glucose Oxyhemoglobin Sodium Potassium Chloride 95.3 L Carbon Dioxide BUN 44 H Creatinine Glucose 234 H POC Glucose 184 H 127 H Lactic Acid Calcium Phosphorus Magnesium AST 363 H ALT 457 H Lactate Dehydrogenase Total Bilirubin Direct Bilirubin CK-MB (CK-2) C-Reactive Protein NT-Pro-B Natriuret Pep Total Protein Albumin 3.0 L Arterial Blood Glucose Urine WBC (Auto) Urine Creatinine 02/02/20 02/03/20 02/03/20 23:47 05:32 07:04 WBC 13.0 H RBC Hgb 9.5 L Hct 30.8 L MCHC 31 L RDW 19.6 H MCV 81 L MCH 25 L Lymph % (Auto) [place] % (Auto) 9.4 H [place] # Eos # Lymph # (Auto) [place] # (Auto) 1.2 H Eos # (Auto) Seg Neutrophils % 72.3 H Seg Neuts % (Manual) Baso # (Auto) Lymphocytes % (Manual) Monocytes % (Manual) Eosinophils % (Manual) Basophils % (Manual) Seg Neutrophils # 9.4 H Seg Neutrophils # Man Lymphocytes # (Manual) Monocytes # (Manual) Eosinophils # (Manual) Nucleated RBC % Basophils # (Manual) PT INR APTT Heparin Anti-Xa Level ABG pH POC ABG pO2 ABG pO2 ABG HCO3 ABG O2 Saturation ABG Base Excess POC ABG pCO2 ABG Hemoglobin ABG Oxyhemoglobin ABG Sodium ABG Chloride ABG Glucose Oxyhemoglobin Sodium Potassium Chloride Carbon Dioxide BUN Creatinine Glucose POC Glucose 124 H 129 H Lactic Acid Calcium Phosphorus Magnesium AST ALT Lactate Dehydrogenase Total Bilirubin Direct Bilirubin CK-MB (CK-2) C-Reactive Protein NT-Pro-B Natriuret Pep Total Protein Albumin Arterial Blood Glucose Urine WBC (Auto) Urine Creatinine 02/03/20 02/03/20 02/03/20 07:04 11:32 12:49 WBC RBC Hgb Hct MCHC RDW MCV MCH Lymph % (Auto) [place] % (Auto) [place] # Eos # Lymph # (Auto) [place] # (Auto) Eos # (Auto) Seg Neutrophils % Seg Neuts % (Manual) Baso # (Auto) Lymphocytes % (Manual) Monocytes % (Manual) Eosinophils % (Manual) Basophils % (Manual) Seg Neutrophils # Seg Neutrophils # Man Lymphocytes # (Manual) Monocytes # (Manual) Eosinophils # (Manual) Nucleated RBC % Basophils # (Manual) PT INR APTT Heparin Anti-Xa Level ABG pH POC ABG pO2 ABG pO2 ABG HCO3 ABG O2 Saturation ABG Base Excess POC ABG pCO2 ABG Hemoglobin ABG Oxyhemoglobin ABG Sodium ABG Chloride ABG Glucose Oxyhemoglobin Sodium Potassium Chloride 97.9 L Carbon Dioxide 33 H BUN 39 H Creatinine Glucose 119 H POC Glucose 138 H Lactic Acid Calcium Phosphorus Magnesium 2.60 H AST ALT Lactate Dehydrogenase Total Bilirubin Direct Bilirubin CK-MB (CK-2) C-Reactive Protein NT-Pro-B Natriuret Pep Total Protein Albumin Arterial Blood Glucose Urine WBC (Auto) Urine Creatinine 02/03/20 02/04/20 02/04/20 18:28 16:24 16:24 WBC RBC 3.38 L Hgb 8.6 L Hct 26.9 L MCHC RDW 19.5 H MCV 80 L MCH 26 L Lymph % (Auto) [place] % (Auto) [place] # Eos # Lymph # (Auto) [place] # (Auto) Eos # (Auto) Seg Neutrophils % Seg Neuts % (Manual) Baso # (Auto) Lymphocytes % (Manual) Monocytes % (Manual) Eosinophils % (Manual) Basophils % (Manual) Seg Neutrophils # Seg Neutrophils # Man Lymphocytes # (Manual) Monocytes # (Manual) Eosinophils # (Manual) Nucleated RBC % Basophils # (Manual) PT INR APTT Heparin Anti-Xa Level ABG pH POC ABG pO2 ABG pO2 ABG HCO3 ABG O2 Saturation ABG Base Excess POC ABG pCO2 ABG Hemoglobin ABG Oxyhemoglobin ABG Sodium ABG Chloride ABG Glucose Oxyhemoglobin Sodium Potassium 3.4 L Chloride Carbon Dioxide 31 H BUN 37 H Creatinine Glucose 70 L POC Glucose 118 H Lactic Acid Calcium Phosphorus Magnesium AST 169 H ALT 394 H Lactate Dehydrogenase Total Bilirubin 1.50 H Direct Bilirubin CK-MB (CK-2) C-Reactive Protein NT-Pro-B Natriuret Pep Total Protein Albumin 2.9 L Arterial Blood Glucose Urine WBC (Auto) Urine Creatinine 02/05/20 02/05/20 02/05/20 00:41 06:37 17:14 WBC RBC Hgb Hct MCHC RDW MCV MCH Lymph % (Auto) [place] % (Auto) [place] # Eos # Lymph # (Auto) [place] # (Auto) Eos # (Auto) Seg Neutrophils % Seg Neuts % (Manual) Baso # (Auto) Lymphocytes % (Manual) Monocytes % (Manual) Eosinophils % (Manual) Basophils % (Manual) Seg Neutrophils # Seg Neutrophils # Man Lymphocytes # (Manual) Monocytes # (Manual) Eosinophils # (Manual) Nucleated RBC % Basophils # (Manual) PT INR APTT Heparin Anti-Xa Level ABG pH POC ABG pO2 ABG pO2 ABG HCO3 ABG O2 Saturation ABG Base Excess POC ABG pCO2 ABG Hemoglobin ABG Oxyhemoglobin ABG Sodium ABG Chloride ABG Glucose Oxyhemoglobin Sodium Potassium 3.1 L Chloride Carbon Dioxide 35 H BUN 32 H Creatinine 0.7 L Glucose POC Glucose 69 L 127 H Lactic Acid Calcium Phosphorus Magnesium AST 134 H ALT 352 H Lactate Dehydrogenase Total Bilirubin 1.60 H Direct Bilirubin CK-MB (CK-2) C-Reactive Protein NT-Pro-B Natriuret Pep Total Protein Albumin 2.9 L Arterial Blood Glucose Urine WBC (Auto) Urine Creatinine 02/05/20 02/06/20 02/06/20 23:43 05:32 08:01 WBC RBC Hgb Hct MCHC RDW MCV MCH Lymph % (Auto) [place] % (Auto) [place] # Eos # Lymph # (Auto) [place] # (Auto) Eos # (Auto) Seg Neutrophils % Seg Neuts % (Manual) Baso # (Auto) Lymphocytes % (Manual) Monocytes % (Manual) Eosinophils % (Manual) Basophils % (Manual) Seg Neutrophils # Seg Neutrophils # Man Lymphocytes # (Manual) Monocytes # (Manual) Eosinophils # (Manual) Nucleated RBC % Basophils # (Manual) PT INR APTT Heparin Anti-Xa Level ABG pH POC ABG pO2 ABG pO2 ABG HCO3 ABG O2 Saturation ABG Base Excess POC ABG pCO2 ABG Hemoglobin ABG Oxyhemoglobin ABG Sodium ABG Chloride ABG Glucose Oxyhemoglobin Sodium Potassium Chloride Carbon Dioxide BUN 40 H Creatinine Glucose 132 H POC Glucose 129 H 131 H Lactic Acid Calcium Phosphorus Magnesium AST ALT Lactate Dehydrogenase Total Bilirubin Direct Bilirubin CK-MB (CK-2) C-Reactive Protein NT-Pro-B Natriuret Pep Total Protein Albumin Arterial Blood Glucose Urine WBC (Auto) Urine Creatinine 02/06/20 02/06/20 02/06/20 11:51 16:28 17:32 WBC RBC Hgb Hct MCHC RDW MCV MCH Lymph % (Auto) [place] % (Auto) [place] # Eos # Lymph # (Auto) [place] # (Auto) Eos # (Auto) Seg Neutrophils % Seg Neuts % (Manual) Baso # (Auto) Lymphocytes % (Manual) Monocytes % (Manual) Eosinophils % (Manual) Basophils % (Manual) Seg Neutrophils # Seg Neutrophils # Man Lymphocytes # (Manual) Monocytes # (Manual) Eosinophils # (Manual) Nucleated RBC % Basophils # (Manual) PT INR APTT Heparin Anti-Xa Level ABG pH POC ABG pO2 ABG pO2 ABG HCO3 ABG O2 Saturation ABG Base Excess POC ABG pCO2 ABG Hemoglobin ABG Oxyhemoglobin ABG Sodium ABG Chloride ABG Glucose Oxyhemoglobin Sodium Potassium Chloride Carbon Dioxide BUN Creatinine Glucose POC Glucose 167 H 129 H Lactic Acid Calcium Phosphorus Magnesium AST 824 H ALT 948 H Lactate Dehydrogenase Total Bilirubin 1.70 H Direct Bilirubin 1.2 H CK-MB (CK-2) C-Reactive Protein NT-Pro-B Natriuret Pep Total Protein Albumin 2.9 L Arterial Blood Glucose Urine WBC (Auto) Urine Creatinine 02/07/20 02/07/20 02/07/20 00:11 04:57 04:57 WBC RBC Hgb 9.2 L Hct 29.7 L MCHC 31 L RDW 20.2 H MCV 80 L MCH 25 L Lymph % (Auto) [place] % (Auto) [place] # Eos # Lymph # (Auto) [place] # (Auto) Eos # (Auto) Seg Neutrophils % Seg Neuts % (Manual) Baso # (Auto) Lymphocytes % (Manual) Monocytes % (Manual) Eosinophils % (Manual) Basophils % (Manual) Seg Neutrophils # Seg Neutrophils # Man Lymphocytes # (Manual) Monocytes # (Manual) Eosinophils # (Manual) Nucleated RBC % Basophils # (Manual) PT INR APTT Heparin Anti-Xa Level ABG pH POC ABG pO2 ABG pO2 ABG HCO3 ABG O2 Saturation ABG Base Excess POC ABG pCO2 ABG Hemoglobin ABG Oxyhemoglobin ABG Sodium ABG Chloride ABG Glucose Oxyhemoglobin Sodium Potassium 3.4 L D Chloride Carbon Dioxide 32 H BUN 39 H Creatinine Glucose 106 H POC Glucose 121 H Lactic Acid Calcium Phosphorus Magnesium AST ALT Lactate Dehydrogenase Total Bilirubin Direct Bilirubin CK-MB (CK-2) C-Reactive Protein NT-Pro-B Natriuret Pep Total Protein Albumin Arterial Blood Glucose Urine WBC (Auto) Urine Creatinine 02/07/20 02/07/20 02/07/20 15:03 15:03 17:11 WBC RBC Hgb Hct MCHC RDW MCV MCH Lymph % (Auto) [place] % (Auto) [place] # Eos # Lymph # (Auto) [place] # (Auto) Eos # (Auto) Seg Neutrophils % Seg Neuts % (Manual) Baso # (Auto) Lymphocytes % (Manual) Monocytes % (Manual) Eosinophils % (Manual) Basophils % (Manual) Seg Neutrophils # Seg Neutrophils # Man Lymphocytes # (Manual) Monocytes # (Manual) Eosinophils # (Manual) Nucleated RBC % Basophils # (Manual) PT 27.0 H INR 2.46 H APTT Heparin Anti-Xa Level ABG pH POC ABG pO2 ABG pO2 ABG HCO3 ABG O2 Saturation ABG Base Excess POC ABG pCO2 ABG Hemoglobin ABG Oxyhemoglobin ABG Sodium ABG Chloride ABG Glucose Oxyhemoglobin Sodium Potassium Chloride Carbon Dioxide BUN Creatinine Glucose POC Glucose 109 H Lactic Acid Calcium Phosphorus Magnesium AST 424 H ALT 796 H Lactate Dehydrogenase Total Bilirubin 1.60 H Direct Bilirubin 1.2 H CK-MB (CK-2) C-Reactive Protein NT-Pro-B Natriuret Pep Total Protein Albumin 2.9 L Arterial Blood Glucose Urine WBC (Auto) Urine Creatinine 02/08/20 02/08/20 02/08/20 12:14 17:44 19:00 WBC RBC Hgb Hct MCHC RDW MCV MCH Lymph % (Auto) [place] % (Auto) [place] # Eos # Lymph # (Auto) [place] # (Auto) Eos # (Auto) Seg Neutrophils % Seg Neuts % (Manual) Baso # (Auto) Lymphocytes % (Manual) Monocytes % (Manual) Eosinophils % (Manual) Basophils % (Manual) Seg Neutrophils # Seg Neutrophils # Man Lymphocytes # (Manual) Monocytes # (Manual) Eosinophils # (Manual) Nucleated RBC % Basophils # (Manual) PT INR APTT Heparin Anti-Xa Level ABG pH POC ABG pO2 ABG pO2 ABG HCO3 ABG O2 Saturation ABG Base Excess POC ABG pCO2 ABG Hemoglobin ABG Oxyhemoglobin ABG Sodium ABG Chloride ABG Glucose Oxyhemoglobin Sodium Potassium Chloride Carbon Dioxide BUN Creatinine Glucose POC Glucose 111 H 107 H Lactic Acid Calcium Phosphorus Magnesium AST 309 H ALT 650 H Lactate Dehydrogenase Total Bilirubin 1.30 H Direct Bilirubin 0.9 H CK-MB (CK-2) C-Reactive Protein NT-Pro-B Natriuret Pep Total Protein 6.2 L Albumin 2.7 L Arterial Blood Glucose Urine WBC (Auto) Urine Creatinine 02/09/20 02/09/20 02/09/20 05:41 12:28 18:07 WBC RBC Hgb Hct MCHC RDW MCV MCH Lymph % (Auto) [place] % (Auto) [place] # Eos # Lymph # (Auto) [place] # (Auto) Eos # (Auto) Seg Neutrophils % Seg Neuts % (Manual) Baso # (Auto) Lymphocytes % (Manual) Monocytes % (Manual) Eosinophils % (Manual) Basophils % (Manual) Seg Neutrophils # Seg Neutrophils # Man Lymphocytes # (Manual) Monocytes # (Manual) Eosinophils # (Manual) Nucleated RBC % Basophils # (Manual) PT INR APTT Heparin Anti-Xa Level ABG pH POC ABG pO2 ABG pO2 ABG HCO3 ABG O2 Saturation ABG Base Excess POC ABG pCO2 ABG Hemoglobin ABG Oxyhemoglobin ABG Sodium ABG Chloride ABG Glucose Oxyhemoglobin Sodium Potassium Chloride Carbon Dioxide BUN Creatinine Glucose POC Glucose 113 H 140 H 143 H Lactic Acid Calcium Phosphorus Magnesium AST ALT Lactate Dehydrogenase Total Bilirubin Direct Bilirubin CK-MB (CK-2) C-Reactive Protein NT-Pro-B Natriuret Pep Total Protein Albumin Arterial Blood Glucose Urine WBC (Auto) Urine Creatinine 02/09/20 02/09/20 02/10/20 21:40 23:45 06:00 WBC RBC Hgb Hct MCHC RDW MCV MCH Lymph % (Auto) [place] % (Auto) [place] # Eos # Lymph # (Auto) [place] # (Auto) Eos # (Auto) Seg Neutrophils % Seg Neuts % (Manual) Baso # (Auto) Lymphocytes % (Manual) Monocytes % (Manual) Eosinophils % (Manual) Basophils % (Manual) Seg Neutrophils # Seg Neutrophils # Man Lymphocytes # (Manual) Monocytes # (Manual) Eosinophils # (Manual) Nucleated RBC % Basophils # (Manual) PT INR APTT Heparin Anti-Xa Level ABG pH POC ABG pO2 ABG pO2 59.8 L ABG HCO3 33.3 H ABG O2 Saturation 88.9 L ABG Base Excess 7.4 H POC ABG pCO2 ABG Hemoglobin 10.4 L ABG Oxyhemoglobin ABG Sodium ABG Chloride ABG Glucose Oxyhemoglobin 86.3 L Sodium Potassium Chloride Carbon Dioxide BUN Creatinine Glucose POC Glucose 127 H 114 H Lactic Acid Calcium Phosphorus Magnesium AST ALT Lactate Dehydrogenase Total Bilirubin Direct Bilirubin CK-MB (CK-2) C-Reactive Protein NT-Pro-B Natriuret Pep Total Protein Albumin Arterial Blood Glucose Urine WBC (Auto) Urine Creatinine 02/10/20 02/10/20 02/10/20 07:40 07:40 13:38 WBC 11.5 H RBC Hgb 10.6 L Hct 34.7 L MCHC 31 L RDW 19.8 H MCV 79 L MCH 24 L Lymph % (Auto) [place] % (Auto) 9.2 H [place] # Eos # Lymph # (Auto) [place] # (Auto) 1.1 H Eos # (Auto) Seg Neutrophils % Seg Neuts % (Manual) Baso # (Auto) Lymphocytes % (Manual) Monocytes % (Manual) Eosinophils % (Manual) Basophils % (Manual) Seg Neutrophils # Seg Neutrophils # Man Lymphocytes # (Manual) Monocytes # (Manual) Eosinophils # (Manual) Nucleated RBC % Basophils # (Manual) PT INR APTT Heparin Anti-Xa Level ABG pH POC ABG pO2 ABG pO2 ABG HCO3 ABG O2 Saturation ABG Base Excess POC ABG pCO2 ABG Hemoglobin ABG Oxyhemoglobin ABG Sodium ABG Chloride ABG Glucose Oxyhemoglobin Sodium 151 H Potassium Chloride 107.2 H Carbon Dioxide 36 H BUN 25 H Creatinine 0.7 L Glucose 114 H POC Glucose 116 H Lactic Acid Calcium Phosphorus Magnesium 2.40 H AST ALT Lactate Dehydrogenase Total Bilirubin Direct Bilirubin CK-MB (CK-2) C-Reactive Protein NT-Pro-B Natriuret Pep Total Protein Albumin Arterial Blood Glucose Urine WBC (Auto) Urine Creatinine 02/10/20 02/11/20 02/11/20 17:44 05:47 12:21 WBC RBC Hgb Hct MCHC RDW MCV MCH Lymph % (Auto) [place] % (Auto) [place] # Eos # Lymph # (Auto) [place] # (Auto) Eos # (Auto) Seg Neutrophils % Seg Neuts % (Manual) Baso # (Auto) Lymphocytes % (Manual) Monocytes % (Manual) Eosinophils % (Manual) Basophils % (Manual) Seg Neutrophils # Seg Neutrophils # Man Lymphocytes # (Manual) Monocytes # (Manual) Eosinophils # (Manual) Nucleated RBC % Basophils # (Manual) PT INR APTT Heparin Anti-Xa Level ABG pH POC ABG pO2 ABG pO2 ABG HCO3 ABG O2 Saturation ABG Base Excess POC ABG pCO2 ABG Hemoglobin ABG Oxyhemoglobin ABG Sodium ABG Chloride ABG Glucose Oxyhemoglobin Sodium Potassium Chloride Carbon Dioxide BUN Creatinine Glucose POC Glucose 139 H 173 H 143 H Lactic Acid Calcium Phosphorus Magnesium AST ALT Lactate Dehydrogenase Total Bilirubin Direct Bilirubin CK-MB (CK-2) C-Reactive Protein NT-Pro-B Natriuret Pep Total Protein Albumin Arterial Blood Glucose Urine WBC (Auto) Urine Creatinine 02/11/20 02/11/20 02/12/20 13:43 14:11 00:15 WBC RBC Hgb Hct MCHC RDW MCV MCH Lymph % (Auto) [place] % (Auto) [place] # Eos # Lymph # (Auto) [place] # (Auto) Eos # (Auto) Seg Neutrophils % Seg Neuts % (Manual) Baso # (Auto) Lymphocytes % (Manual) Monocytes % (Manual) Eosinophils % (Manual) Basophils % (Manual) Seg Neutrophils # Seg Neutrophils # Man Lymphocytes # (Manual) Monocytes # (Manual) Eosinophils # (Manual) Nucleated RBC % Basophils # (Manual) PT INR APTT Heparin Anti-Xa Level ABG pH 7.502 H POC ABG pO2 77.7 L ABG pO2 ABG HCO3 ABG O2 Saturation ABG Base Excess POC ABG pCO2 ABG Hemoglobin 11.1 L ABG Oxyhemoglobin ABG Sodium ABG Chloride 108.0 H ABG Glucose 151 H Oxyhemoglobin Sodium Potassium Chloride Carbon Dioxide BUN Creatinine Glucose POC Glucose 130 H 125 H Lactic Acid Calcium Phosphorus Magnesium AST ALT Lactate Dehydrogenase Total Bilirubin Direct Bilirubin CK-MB (CK-2) C-Reactive Protein NT-Pro-B Natriuret Pep Total Protein Albumin Arterial Blood Glucose 151 H Urine WBC (Auto) Urine Creatinine 02/12/20 02/12/20 02/12/20 04:56 04:56 17:42 WBC RBC Hgb 9.9 L Hct 31.8 L MCHC 31 L RDW 19.4 H MCV 79 L MCH 25 L Lymph % (Auto) [place] % (Auto) 10.3 H [place] # Eos # Lymph # (Auto) [place] # (Auto) 1.0 H Eos # (Auto) Seg Neutrophils % Seg Neuts % (Manual) Baso # (Auto) Lymphocytes % (Manual) Monocytes % (Manual) Eosinophils % (Manual) Basophils % (Manual) Seg Neutrophils # Seg Neutrophils # Man Lymphocytes # (Manual) Monocytes # (Manual) Eosinophils # (Manual) Nucleated RBC % Basophils # (Manual) PT INR APTT Heparin Anti-Xa Level ABG pH POC ABG pO2 ABG pO2 ABG HCO3 ABG O2 Saturation ABG Base Excess POC ABG pCO2 ABG Hemoglobin ABG Oxyhemoglobin ABG Sodium ABG Chloride ABG Glucose Oxyhemoglobin Sodium 149 H Potassium Chloride 108.6 H Carbon Dioxide BUN 28 H Creatinine 0.7 L Glucose 108 H POC Glucose 113 H Lactic Acid Calcium Phosphorus Magnesium AST ALT Lactate Dehydrogenase Total Bilirubin Direct Bilirubin CK-MB (CK-2) C-Reactive Protein NT-Pro-B Natriuret Pep Total Protein Albumin Arterial Blood Glucose Urine WBC (Auto) Urine Creatinine 02/13/20 02/13/20 02/13/20 00:39 05:36 12:25 WBC RBC Hgb Hct MCHC RDW MCV MCH Lymph % (Auto) [place] % (Auto) [place] # Eos # Lymph # (Auto) [place] # (Auto) Eos # (Auto) Seg Neutrophils % Seg Neuts % (Manual) Baso # (Auto) Lymphocytes % (Manual) Monocytes % (Manual) Eosinophils % (Manual) Basophils % (Manual) Seg Neutrophils # Seg Neutrophils # Man Lymphocytes # (Manual) Monocytes # (Manual) Eosinophils # (Manual) Nucleated RBC % Basophils # (Manual) PT INR APTT Heparin Anti-Xa Level ABG pH POC ABG pO2 ABG pO2 ABG HCO3 ABG O2 Saturation ABG Base Excess POC ABG pCO2 ABG Hemoglobin ABG Oxyhemoglobin ABG Sodium ABG Chloride ABG Glucose Oxyhemoglobin Sodium Potassium Chloride Carbon Dioxide BUN Creatinine Glucose POC Glucose 129 H 126 H 129 H Lactic Acid Calcium Phosphorus Magnesium AST ALT Lactate Dehydrogenase Total Bilirubin Direct Bilirubin CK-MB (CK-2) C-Reactive Protein NT-Pro-B Natriuret Pep Total Protein Albumin Arterial Blood Glucose Urine WBC (Auto) Urine Creatinine 02/13/20 02/14/20 02/14/20 17:59 00:15 05:41 WBC RBC Hgb Hct MCHC RDW MCV MCH Lymph % (Auto) [place] % (Auto) [place] # Eos # Lymph # (Auto) [place] # (Auto) Eos # (Auto) Seg Neutrophils % Seg Neuts % (Manual) Baso # (Auto) Lymphocytes % (Manual) Monocytes % (Manual) Eosinophils % (Manual) Basophils % (Manual) Seg Neutrophils # Seg Neutrophils # Man Lymphocytes # (Manual) Monocytes # (Manual) Eosinophils # (Manual) Nucleated RBC % Basophils # (Manual) PT INR APTT Heparin Anti-Xa Level ABG pH POC ABG pO2 ABG pO2 ABG HCO3 ABG O2 Saturation ABG Base Excess POC ABG pCO2 ABG Hemoglobin ABG Oxyhemoglobin ABG Sodium ABG Chloride ABG Glucose Oxyhemoglobin Sodium Potassium Chloride Carbon Dioxide BUN Creatinine Glucose POC Glucose 153 H 130 H 130 H Lactic Acid Calcium Phosphorus Magnesium AST ALT Lactate Dehydrogenase Total Bilirubin Direct Bilirubin CK-MB (CK-2) C-Reactive Protein NT-Pro-B Natriuret Pep Total Protein Albumin Arterial Blood Glucose Urine WBC (Auto) Urine Creatinine 02/14/20 02/15/20 02/15/20 11:32 00:12 05:27 WBC RBC Hgb Hct MCHC RDW MCV MCH Lymph % (Auto) [place] % (Auto) [place] # Eos # Lymph # (Auto) [place] # (Auto) Eos # (Auto) Seg Neutrophils % Seg Neuts % (Manual) Baso # (Auto) Lymphocytes % (Manual) Monocytes % (Manual) Eosinophils % (Manual) Basophils % (Manual) Seg Neutrophils # Seg Neutrophils # Man Lymphocytes # (Manual) Monocytes # (Manual) Eosinophils # (Manual) Nucleated RBC % Basophils # (Manual) PT INR APTT Heparin Anti-Xa Level ABG pH POC ABG pO2 ABG pO2 ABG HCO3 ABG O2 Saturation ABG Base Excess POC ABG pCO2 ABG Hemoglobin ABG Oxyhemoglobin ABG Sodium ABG Chloride ABG Glucose Oxyhemoglobin Sodium Potassium Chloride Carbon Dioxide BUN Creatinine Glucose POC Glucose 157 H 124 H 111 H Lactic Acid Calcium Phosphorus Magnesium AST ALT Lactate Dehydrogenase Total Bilirubin Direct Bilirubin CK-MB (CK-2) C-Reactive Protein NT-Pro-B Natriuret Pep Total Protein Albumin Arterial Blood Glucose Urine WBC (Auto) Urine Creatinine 02/15/20 02/15/20 02/15/20 06:59 06:59 11:14 WBC RBC Hgb 10.4 L Hct 33.7 L MCHC 31 L RDW 19.4 H MCV 80 L MCH 24 L Lymph % (Auto) [place] % (Auto) [place] # Eos # Lymph # (Auto) [place] # (Auto) Eos # (Auto) Seg Neutrophils % Seg Neuts % (Manual) Baso # (Auto) Lymphocytes % (Manual) Monocytes % (Manual) Eosinophils % (Manual) Basophils % (Manual) 2.0 H Seg Neutrophils # Seg Neutrophils # Man Lymphocytes # (Manual) Monocytes # (Manual) Eosinophils # (Manual) Nucleated RBC % 1.0 H Basophils # (Manual) 0.2 H PT INR APTT Heparin Anti-Xa Level ABG pH POC ABG pO2 ABG pO2 ABG HCO3 ABG O2 Saturation ABG Base Excess POC ABG pCO2 ABG Hemoglobin ABG Oxyhemoglobin ABG Sodium ABG Chloride ABG Glucose Oxyhemoglobin Sodium 149 H Potassium Chloride 108.4 H Carbon Dioxide 31 H BUN 40 H Creatinine 0.7 L Glucose 150 H POC Glucose 128 H Lactic Acid Calcium Phosphorus Magnesium AST ALT Lactate Dehydrogenase Total Bilirubin Direct Bilirubin CK-MB (CK-2) C-Reactive Protein NT-Pro-B Natriuret Pep Total Protein Albumin Arterial Blood Glucose Urine WBC (Auto) Urine Creatinine 02/15/20 02/15/20 02/16/20 17:46 23:50 05:03 WBC RBC Hgb Hct MCHC RDW MCV MCH Lymph % (Auto) [place] % (Auto) [place] # Eos # Lymph # (Auto) [place] # (Auto) Eos # (Auto) Seg Neutrophils % Seg Neuts % (Manual) Baso # (Auto) Lymphocytes % (Manual) Monocytes % (Manual) Eosinophils % (Manual) Basophils % (Manual) Seg Neutrophils # Seg Neutrophils # Man Lymphocytes # (Manual) Monocytes # (Manual) Eosinophils # (Manual) Nucleated RBC % Basophils # (Manual) PT INR APTT Heparin Anti-Xa Level ABG pH POC ABG pO2 ABG pO2 ABG HCO3 ABG O2 Saturation ABG Base Excess POC ABG pCO2 ABG Hemoglobin ABG Oxyhemoglobin ABG Sodium ABG Chloride ABG Glucose Oxyhemoglobin Sodium Potassium Chloride Carbon Dioxide BUN Creatinine Glucose POC Glucose 154 H 135 H 148 H Lactic Acid Calcium Phosphorus Magnesium AST ALT Lactate Dehydrogenase Total Bilirubin Direct Bilirubin CK-MB (CK-2) C-Reactive Protein NT-Pro-B Natriuret Pep Total Protein Albumin Arterial Blood Glucose Urine WBC (Auto) Urine Creatinine 02/16/20 02/16/20 02/16/20 07:53 11:28 17:52 WBC RBC Hgb Hct MCHC RDW MCV MCH Lymph % (Auto) [place] % (Auto) [place] # Eos # Lymph # (Auto) [place] # (Auto) Eos # (Auto) Seg Neutrophils % Seg Neuts % (Manual) Baso # (Auto) Lymphocytes % (Manual) Monocytes % (Manual) Eosinophils % (Manual) Basophils % (Manual) Seg Neutrophils # Seg Neutrophils # Man Lymphocytes # (Manual) Monocytes # (Manual) Eosinophils # (Manual) Nucleated RBC % Basophils # (Manual) PT INR APTT Heparin Anti-Xa Level ABG pH POC ABG pO2 ABG pO2 ABG HCO3 ABG O2 Saturation ABG Base Excess POC ABG pCO2 ABG Hemoglobin ABG Oxyhemoglobin ABG Sodium ABG Chloride ABG Glucose Oxyhemoglobin Sodium Potassium Chloride 107.9 H Carbon Dioxide BUN 38 H Creatinine 0.6 L Glucose 151 H POC Glucose 123 H 152 H Lactic Acid Calcium Phosphorus Magnesium AST ALT Lactate Dehydrogenase Total Bilirubin Direct Bilirubin CK-MB (CK-2) C-Reactive Protein NT-Pro-B Natriuret Pep Total Protein Albumin Arterial Blood Glucose Urine WBC (Auto) Urine Creatinine 02/16/20 02/17/20 02/17/20 23:49 06:24 11:36 WBC RBC Hgb Hct MCHC RDW MCV MCH Lymph % (Auto) [place] % (Auto) [place] # Eos # Lymph # (Auto) [place] # (Auto) Eos # (Auto) Seg Neutrophils % Seg Neuts % (Manual) Baso # (Auto) Lymphocytes % (Manual) Monocytes % (Manual) Eosinophils % (Manual) Basophils % (Manual) Seg Neutrophils # Seg Neutrophils # Man Lymphocytes # (Manual) Monocytes # (Manual) Eosinophils # (Manual) Nucleated RBC % Basophils # (Manual) PT INR APTT Heparin Anti-Xa Level ABG pH POC ABG pO2 ABG pO2 ABG HCO3 ABG O2 Saturation ABG Base Excess POC ABG pCO2 ABG Hemoglobin ABG Oxyhemoglobin ABG Sodium ABG Chloride ABG Glucose Oxyhemoglobin Sodium Potassium Chloride Carbon Dioxide BUN Creatinine Glucose POC Glucose 156 H 193 H 162 H Lactic Acid Calcium Phosphorus Magnesium AST ALT Lactate Dehydrogenase Total Bilirubin Direct Bilirubin CK-MB (CK-2) C-Reactive Protein NT-Pro-B Natriuret Pep Total Protein Albumin Arterial Blood Glucose Urine WBC (Auto) Urine Creatinine 02/17/20 02/17/20 02/18/20 17:55 23:28 05:11 WBC RBC Hgb Hct MCHC RDW MCV MCH Lymph % (Auto) [place] % (Auto) [place] # Eos # Lymph # (Auto) [place] # (Auto) Eos # (Auto) Seg Neutrophils % Seg Neuts % (Manual) Baso # (Auto) Lymphocytes % (Manual) Monocytes % (Manual) Eosinophils % (Manual) Basophils % (Manual) Seg Neutrophils # Seg Neutrophils # Man Lymphocytes # (Manual) Monocytes # (Manual) Eosinophils # (Manual) Nucleated RBC % Basophils # (Manual) PT INR APTT Heparin Anti-Xa Level ABG pH POC ABG pO2 ABG pO2 ABG HCO3 ABG O2 Saturation ABG Base Excess POC ABG pCO2 ABG Hemoglobin ABG Oxyhemoglobin ABG Sodium ABG Chloride ABG Glucose Oxyhemoglobin Sodium Potassium Chloride Carbon Dioxide BUN Creatinine Glucose POC Glucose 165 H 146 H 122 H Lactic Acid Calcium Phosphorus Magnesium AST ALT Lactate Dehydrogenase Total Bilirubin Direct Bilirubin CK-MB (CK-2) C-Reactive Protein NT-Pro-B Natriuret Pep Total Protein Albumin Arterial Blood Glucose Urine WBC (Auto) Urine Creatinine 02/18/20 02/18/20 02/19/20 12:24 17:29 00:01 WBC RBC Hgb Hct MCHC RDW MCV MCH Lymph % (Auto) [place] % (Auto) [place] # Eos # Lymph # (Auto) [place] # (Auto) Eos # (Auto) Seg Neutrophils % Seg Neuts % (Manual) Baso # (Auto) Lymphocytes % (Manual) Monocytes % (Manual) Eosinophils % (Manual) Basophils % (Manual) Seg Neutrophils # Seg Neutrophils # Man Lymphocytes # (Manual) Monocytes # (Manual) Eosinophils # (Manual) Nucleated RBC % Basophils # (Manual) PT INR APTT Heparin Anti-Xa Level ABG pH POC ABG pO2 ABG pO2 ABG HCO3 ABG O2 Saturation ABG Base Excess POC ABG pCO2 ABG Hemoglobin ABG Oxyhemoglobin ABG Sodium ABG Chloride ABG Glucose Oxyhemoglobin Sodium Potassium Chloride Carbon Dioxide BUN Creatinine Glucose POC Glucose 162 H 136 H 145 H Lactic Acid Calcium Phosphorus Magnesium AST ALT Lactate Dehydrogenase Total Bilirubin Direct Bilirubin CK-MB (CK-2) C-Reactive Protein NT-Pro-B Natriuret Pep Total Protein Albumin Arterial Blood Glucose Urine WBC (Auto) Urine Creatinine 02/19/20 02/19/20 02/19/20 05:53 11:44 17:32 WBC RBC Hgb Hct MCHC RDW MCV MCH Lymph % (Auto) [place] % (Auto) [place] # Eos # Lymph # (Auto) [place] # (Auto) Eos # (Auto) Seg Neutrophils % Seg Neuts % (Manual) Baso # (Auto) Lymphocytes % (Manual) Monocytes % (Manual) Eosinophils % (Manual) Basophils % (Manual) Seg Neutrophils # Seg Neutrophils # Man Lymphocytes # (Manual) Monocytes # (Manual) Eosinophils # (Manual) Nucleated RBC % Basophils # (Manual) PT INR APTT Heparin Anti-Xa Level ABG pH POC ABG pO2 ABG pO2 ABG HCO3 ABG O2 Saturation ABG Base Excess POC ABG pCO2 ABG Hemoglobin ABG Oxyhemoglobin ABG Sodium ABG Chloride ABG Glucose Oxyhemoglobin Sodium Potassium Chloride Carbon Dioxide BUN Creatinine Glucose POC Glucose 116 H 120 H 154 H Lactic Acid Calcium Phosphorus Magnesium AST ALT Lactate Dehydrogenase Total Bilirubin Direct Bilirubin CK-MB (CK-2) C-Reactive Protein NT-Pro-B Natriuret Pep Total Protein Albumin Arterial Blood Glucose Urine WBC (Auto) Urine Creatinine 02/19/20 02/20/20 02/20/20 23:43 00:24 00:24 WBC RBC Hgb 9.4 L Hct 30.0 L MCHC 31 L RDW 20.4 H MCV 79 L MCH 25 L Lymph % (Auto) [place] % (Auto) 8.5 H [place] # Eos # Lymph # (Auto) [place] # (Auto) Eos # (Auto) Seg Neutrophils % Seg Neuts % (Manual) Baso # (Auto) Lymphocytes % (Manual) Monocytes % (Manual) Eosinophils % (Manual) Basophils % (Manual) Seg Neutrophils # Seg Neutrophils # Man Lymphocytes # (Manual) Monocytes # (Manual) Eosinophils # (Manual) Nucleated RBC % Basophils # (Manual) PT INR APTT Heparin Anti-Xa Level ABG pH POC ABG pO2 ABG pO2 ABG HCO3 ABG O2 Saturation ABG Base Excess POC ABG pCO2 ABG Hemoglobin ABG Oxyhemoglobin ABG Sodium ABG Chloride ABG Glucose Oxyhemoglobin Sodium 147 H Potassium 3.4 L Chloride Carbon Dioxide 31 H BUN 34 H Creatinine 0.5 L Glucose 135 H POC Glucose 122 H Lactic Acid Calcium Phosphorus Magnesium AST ALT Lactate Dehydrogenase Total Bilirubin Direct Bilirubin CK-MB (CK-2) C-Reactive Protein NT-Pro-B Natriuret Pep Total Protein Albumin Arterial Blood Glucose Urine WBC (Auto) Urine Creatinine 02/20/20 02/20/20 02/20/20 06:07 06:45 12:03 WBC RBC Hgb Hct MCHC RDW MCV MCH Lymph % (Auto) [place] % (Auto) [place] # Eos # Lymph # (Auto) [place] # (Auto) Eos # (Auto) Seg Neutrophils % Seg Neuts % (Manual) Baso # (Auto) Lymphocytes % (Manual) Monocytes % (Manual) Eosinophils % (Manual) Basophils % (Manual) Seg Neutrophils # Seg Neutrophils # Man Lymphocytes # (Manual) Monocytes # (Manual) Eosinophils # (Manual) Nucleated RBC % Basophils # (Manual) PT INR APTT Heparin Anti-Xa Level ABG pH 7.461 H POC ABG pO2 ABG pO2 ABG HCO3 33.3 H ABG O2 Saturation ABG Base Excess 8.4 H POC ABG pCO2 ABG Hemoglobin 10.0 L ABG Oxyhemoglobin ABG Sodium ABG Chloride ABG Glucose Oxyhemoglobin 94.1 L Sodium Potassium Chloride Carbon Dioxide BUN Creatinine Glucose POC Glucose 109 H 128 H Lactic Acid Calcium Phosphorus Magnesium AST ALT Lactate Dehydrogenase Total Bilirubin Direct Bilirubin CK-MB (CK-2) C-Reactive Protein NT-Pro-B Natriuret Pep Total Protein Albumin Arterial Blood Glucose Urine WBC (Auto) Urine Creatinine 02/20/20 02/20/20 02/21/20 18:02 23:55 05:42 WBC RBC Hgb Hct MCHC RDW MCV MCH Lymph % (Auto) [place] % (Auto) [place] # Eos # Lymph # (Auto) [place] # (Auto) Eos # (Auto) Seg Neutrophils % Seg Neuts % (Manual) Baso # (Auto) Lymphocytes % (Manual) Monocytes % (Manual) Eosinophils % (Manual) Basophils % (Manual) Seg Neutrophils # Seg Neutrophils # Man Lymphocytes # (Manual) Monocytes # (Manual) Eosinophils # (Manual) Nucleated RBC % Basophils # (Manual) PT INR APTT Heparin Anti-Xa Level ABG pH POC ABG pO2 ABG pO2 ABG HCO3 ABG O2 Saturation ABG Base Excess POC ABG pCO2 ABG Hemoglobin ABG Oxyhemoglobin ABG Sodium ABG Chloride ABG Glucose Oxyhemoglobin Sodium Potassium Chloride Carbon Dioxide BUN Creatinine Glucose POC Glucose 118 H 125 H 127 H Lactic Acid Calcium Phosphorus Magnesium AST ALT Lactate Dehydrogenase Total Bilirubin Direct Bilirubin CK-MB (CK-2) C-Reactive Protein NT-Pro-B Natriuret Pep Total Protein Albumin Arterial Blood Glucose Urine WBC (Auto) Urine Creatinine 02/21/20 02/21/20 02/21/20 12:10 17:35 23:40 WBC RBC Hgb Hct MCHC RDW MCV MCH Lymph % (Auto) [place] % (Auto) [place] # Eos # Lymph # (Auto) [place] # (Auto) Eos # (Auto) Seg Neutrophils % Seg Neuts % (Manual) Baso # (Auto) Lymphocytes % (Manual) Monocytes % (Manual) Eosinophils % (Manual) Basophils % (Manual) Seg Neutrophils # Seg Neutrophils # Man Lymphocytes # (Manual) Monocytes # (Manual) Eosinophils # (Manual) Nucleated RBC % Basophils # (Manual) PT INR APTT Heparin Anti-Xa Level ABG pH POC ABG pO2 ABG pO2 ABG HCO3 ABG O2 Saturation ABG Base Excess POC ABG pCO2 ABG Hemoglobin ABG Oxyhemoglobin ABG Sodium ABG Chloride ABG Glucose Oxyhemoglobin Sodium Potassium Chloride Carbon Dioxide BUN Creatinine Glucose POC Glucose 128 H 113 H 125 H Lactic Acid Calcium Phosphorus Magnesium AST ALT Lactate Dehydrogenase Total Bilirubin Direct Bilirubin CK-MB (CK-2) C-Reactive Protein NT-Pro-B Natriuret Pep Total Protein Albumin Arterial Blood Glucose Urine WBC (Auto) Urine Creatinine 02/22/20 02/22/20 02/22/20 05:57 08:06 08:06 WBC RBC Hgb 10.8 L Hct 35.2 L MCHC 31 L RDW 21.8 H MCV 80 L MCH 25 L Lymph % (Auto) [place] % (Auto) [place] # Eos # Lymph # (Auto) [place] # (Auto) Eos # (Auto) Seg Neutrophils % 71.5 H Seg Neuts % (Manual) Baso # (Auto) Lymphocytes % (Manual) Monocytes % (Manual) Eosinophils % (Manual) Basophils % (Manual) Seg Neutrophils # Seg Neutrophils # Man Lymphocytes # (Manual) Monocytes # (Manual) Eosinophils # (Manual) Nucleated RBC % Basophils # (Manual) PT INR APTT Heparin Anti-Xa Level ABG pH POC ABG pO2 ABG pO2 ABG HCO3 ABG O2 Saturation ABG Base Excess POC ABG pCO2 ABG Hemoglobin ABG Oxyhemoglobin ABG Sodium ABG Chloride ABG Glucose Oxyhemoglobin Sodium 146 H Potassium Chloride Carbon Dioxide 34 H BUN 21 H Creatinine 0.4 L Glucose 149 H POC Glucose 138 H Lactic Acid Calcium Phosphorus Magnesium AST ALT Lactate Dehydrogenase Total Bilirubin Direct Bilirubin CK-MB (CK-2) C-Reactive Protein NT-Pro-B Natriuret Pep Total Protein Albumin Arterial Blood Glucose Urine WBC (Auto) Urine Creatinine 02/22/20 02/22/20 02/22/20 11:47 17:11 23:25 WBC RBC Hgb Hct MCHC RDW MCV MCH Lymph % (Auto) [place] % (Auto) [place] # Eos # Lymph # (Auto) [place] # (Auto) Eos # (Auto) Seg Neutrophils % Seg Neuts % (Manual) Baso # (Auto) Lymphocytes % (Manual) Monocytes % (Manual) Eosinophils % (Manual) Basophils % (Manual) Seg Neutrophils # Seg Neutrophils # Man Lymphocytes # (Manual) Monocytes # (Manual) Eosinophils # (Manual) Nucleated RBC % Basophils # (Manual) PT INR APTT Heparin Anti-Xa Level ABG pH POC ABG pO2 ABG pO2 ABG HCO3 ABG O2 Saturation ABG Base Excess POC ABG pCO2 ABG Hemoglobin ABG Oxyhemoglobin ABG Sodium ABG Chloride ABG Glucose Oxyhemoglobin Sodium Potassium Chloride Carbon Dioxide BUN Creatinine Glucose POC Glucose 149 H 144 H 142 H Lactic Acid Calcium Phosphorus Magnesium AST ALT Lactate Dehydrogenase Total Bilirubin Direct Bilirubin CK-MB (CK-2) C-Reactive Protein NT-Pro-B Natriuret Pep Total Protein Albumin Arterial Blood Glucose Urine WBC (Auto) Urine Creatinine 02/23/20 02/23/20 02/23/20 05:22 11:37 18:14 WBC RBC Hgb Hct MCHC RDW MCV MCH Lymph % (Auto) [place] % (Auto) [place] # Eos # Lymph # (Auto) [place] # (Auto) Eos # (Auto) Seg Neutrophils % Seg Neuts % (Manual) Baso # (Auto) Lymphocytes % (Manual) Monocytes % (Manual) Eosinophils % (Manual) Basophils % (Manual) Seg Neutrophils # Seg Neutrophils # Man Lymphocytes # (Manual) Monocytes # (Manual) Eosinophils # (Manual) Nucleated RBC % Basophils # (Manual) PT INR APTT Heparin Anti-Xa Level ABG pH POC ABG pO2 ABG pO2 ABG HCO3 ABG O2 Saturation ABG Base Excess POC ABG pCO2 ABG Hemoglobin ABG Oxyhemoglobin ABG Sodium ABG Chloride ABG Glucose Oxyhemoglobin Sodium Potassium Chloride Carbon Dioxide BUN Creatinine Glucose POC Glucose 144 H 113 H 127 H Lactic Acid Calcium Phosphorus Magnesium AST ALT Lactate Dehydrogenase Total Bilirubin Direct Bilirubin CK-MB (CK-2) C-Reactive Protein NT-Pro-B Natriuret Pep Total Protein Albumin Arterial Blood Glucose Urine WBC (Auto) Urine Creatinine 02/23/20 02/24/20 02/24/20 23:45 05:50 11:24 WBC RBC Hgb Hct MCHC RDW MCV MCH Lymph % (Auto) [place] % (Auto) [place] # Eos # Lymph # (Auto) [place] # (Auto) Eos # (Auto) Seg Neutrophils % Seg Neuts % (Manual) Baso # (Auto) Lymphocytes % (Manual) Monocytes % (Manual) Eosinophils % (Manual) Basophils % (Manual) Seg Neutrophils # Seg Neutrophils # Man Lymphocytes # (Manual) Monocytes # (Manual) Eosinophils # (Manual) Nucleated RBC % Basophils # (Manual) PT INR APTT Heparin Anti-Xa Level ABG pH POC ABG pO2 ABG pO2 ABG HCO3 ABG O2 Saturation ABG Base Excess POC ABG pCO2 ABG Hemoglobin ABG Oxyhemoglobin ABG Sodium ABG Chloride ABG Glucose Oxyhemoglobin Sodium Potassium Chloride Carbon Dioxide BUN Creatinine Glucose POC Glucose 123 H 117 H 126 H Lactic Acid Calcium Phosphorus Magnesium AST ALT Lactate Dehydrogenase Total Bilirubin Direct Bilirubin CK-MB (CK-2) C-Reactive Protein NT-Pro-B Natriuret Pep Total Protein Albumin Arterial Blood Glucose Urine WBC (Auto) Urine Creatinine 02/24/20 02/24/20 02/25/20 18:35 23:27 05:20 WBC RBC Hgb Hct MCHC RDW MCV MCH Lymph % (Auto) [place] % (Auto) [place] # Eos # Lymph # (Auto) [place] # (Auto) Eos # (Auto) Seg Neutrophils % Seg Neuts % (Manual) Baso # (Auto) Lymphocytes % (Manual) Monocytes % (Manual) Eosinophils % (Manual) Basophils % (Manual) Seg Neutrophils # Seg Neutrophils # Man Lymphocytes # (Manual) Monocytes # (Manual) Eosinophils # (Manual) Nucleated RBC % Basophils # (Manual) PT INR APTT Heparin Anti-Xa Level ABG pH POC ABG pO2 ABG pO2 ABG HCO3 ABG O2 Saturation ABG Base Excess POC ABG pCO2 ABG Hemoglobin ABG Oxyhemoglobin ABG Sodium ABG Chloride ABG Glucose Oxyhemoglobin Sodium Potassium Chloride Carbon Dioxide BUN Creatinine Glucose POC Glucose 121 H 127 H 133 H Lactic Acid Calcium Phosphorus Magnesium AST ALT Lactate Dehydrogenase Total Bilirubin Direct Bilirubin CK-MB (CK-2) C-Reactive Protein NT-Pro-B Natriuret Pep Total Protein Albumin Arterial Blood Glucose Urine WBC (Auto) Urine Creatinine 02/25/20 02/25/20 02/25/20 12:08 17:26 23:33 WBC RBC Hgb Hct MCHC RDW MCV MCH Lymph % (Auto) [place] % (Auto) [place] # Eos # Lymph # (Auto) [place] # (Auto) Eos # (Auto) Seg Neutrophils % Seg Neuts % (Manual) Baso # (Auto) Lymphocytes % (Manual) Monocytes % (Manual) Eosinophils % (Manual) Basophils % (Manual) Seg Neutrophils # Seg Neutrophils # Man Lymphocytes # (Manual) Monocytes # (Manual) Eosinophils # (Manual) Nucleated RBC % Basophils # (Manual) PT INR APTT Heparin Anti-Xa Level ABG pH POC ABG pO2 ABG pO2 ABG HCO3 ABG O2 Saturation ABG Base Excess POC ABG pCO2 ABG Hemoglobin ABG Oxyhemoglobin ABG Sodium ABG Chloride ABG Glucose Oxyhemoglobin Sodium Potassium Chloride Carbon Dioxide BUN Creatinine Glucose POC Glucose 109 H 120 H 120 H Lactic Acid Calcium Phosphorus Magnesium AST ALT Lactate Dehydrogenase Total Bilirubin Direct Bilirubin CK-MB (CK-2) C-Reactive Protein NT-Pro-B Natriuret Pep Total Protein Albumin Arterial Blood Glucose Urine WBC (Auto) Urine Creatinine 02/26/20 02/26/20 02/27/20 05:33 07:50 12:13 WBC RBC Hgb Hct MCHC RDW MCV MCH Lymph % (Auto) [place] % (Auto) [place] # Eos # Lymph # (Auto) [place] # (Auto) Eos # (Auto) Seg Neutrophils % Seg Neuts % (Manual) Baso # (Auto) Lymphocytes % (Manual) Monocytes % (Manual) Eosinophils % (Manual) Basophils % (Manual) Seg Neutrophils # Seg Neutrophils # Man Lymphocytes # (Manual) Monocytes # (Manual) Eosinophils # (Manual) Nucleated RBC % Basophils # (Manual) PT INR APTT Heparin Anti-Xa Level ABG pH POC ABG pO2 ABG pO2 ABG HCO3 ABG O2 Saturation ABG Base Excess POC ABG pCO2 ABG Hemoglobin ABG Oxyhemoglobin ABG Sodium ABG Chloride ABG Glucose Oxyhemoglobin Sodium Potassium Chloride Carbon Dioxide BUN Creatinine Glucose POC Glucose 106 H 130 H Lactic Acid Calcium Phosphorus Magnesium AST ALT Lactate Dehydrogenase Total Bilirubin Direct Bilirubin CK-MB (CK-2) C-Reactive Protein NT-Pro-B Natriuret Pep Total Protein Albumin Arterial Blood Glucose Urine WBC (Auto) > 182.0 H Urine Creatinine 02/27/20 02/27/20 02/28/20 18:20 23:33 05:01 WBC RBC Hgb Hct MCHC RDW MCV MCH Lymph % (Auto) [place] % (Auto) [place] # Eos # Lymph # (Auto) [place] # (Auto) Eos # (Auto) Seg Neutrophils % Seg Neuts % (Manual) Baso # (Auto) Lymphocytes % (Manual) Monocytes % (Manual) Eosinophils % (Manual) Basophils % (Manual) Seg Neutrophils # Seg Neutrophils # Man Lymphocytes # (Manual) Monocytes # (Manual) Eosinophils # (Manual) Nucleated RBC % Basophils # (Manual) PT INR APTT Heparin Anti-Xa Level ABG pH POC ABG pO2 ABG pO2 ABG HCO3 ABG O2 Saturation ABG Base Excess POC ABG pCO2 ABG Hemoglobin ABG Oxyhemoglobin ABG Sodium ABG Chloride ABG Glucose Oxyhemoglobin Sodium Potassium Chloride Carbon Dioxide BUN Creatinine Glucose POC Glucose 109 H 124 H 134 H Lactic Acid Calcium Phosphorus Magnesium AST ALT Lactate Dehydrogenase Total Bilirubin Direct Bilirubin CK-MB (CK-2) C-Reactive Protein NT-Pro-B Natriuret Pep Total Protein Albumin Arterial Blood Glucose Urine WBC (Auto) Urine Creatinine 02/28/20 02/28/20 02/28/20 11:54 18:16 23:03 WBC RBC Hgb Hct MCHC RDW MCV MCH Lymph % (Auto) [place] % (Auto) [place] # Eos # Lymph # (Auto) [place] # (Auto) Eos # (Auto) Seg Neutrophils % Seg Neuts % (Manual) Baso # (Auto) Lymphocytes % (Manual) Monocytes % (Manual) Eosinophils % (Manual) Basophils % (Manual) Seg Neutrophils # Seg Neutrophils # Man Lymphocytes # (Manual) Monocytes # (Manual) Eosinophils # (Manual) Nucleated RBC % Basophils # (Manual) PT INR APTT Heparin Anti-Xa Level ABG pH POC ABG pO2 ABG pO2 ABG HCO3 ABG O2 Saturation ABG Base Excess POC ABG pCO2 ABG Hemoglobin ABG Oxyhemoglobin ABG Sodium ABG Chloride ABG Glucose Oxyhemoglobin Sodium Potassium Chloride Carbon Dioxide BUN Creatinine Glucose POC Glucose 133 H 134 H 146 H Lactic Acid Calcium Phosphorus Magnesium AST ALT Lactate Dehydrogenase Total Bilirubin Direct Bilirubin CK-MB (CK-2) C-Reactive Protein NT-Pro-B Natriuret Pep Total Protein Albumin Arterial Blood Glucose Urine WBC (Auto) Urine Creatinine 02/29/20 02/29/20 02/29/20 05:24 11:34 17:12 WBC RBC Hgb Hct MCHC RDW MCV MCH Lymph % (Auto) [place] % (Auto) [place] # Eos # Lymph # (Auto) [place] # (Auto) Eos # (Auto) Seg Neutrophils % Seg Neuts % (Manual) Baso # (Auto) Lymphocytes % (Manual) Monocytes % (Manual) Eosinophils % (Manual) Basophils % (Manual) Seg Neutrophils # Seg Neutrophils # Man Lymphocytes # (Manual) Monocytes # (Manual) Eosinophils # (Manual) Nucleated RBC % Basophils # (Manual) PT INR APTT Heparin Anti-Xa Level ABG pH POC ABG pO2 ABG pO2 ABG HCO3 ABG O2 Saturation ABG Base Excess POC ABG pCO2 ABG Hemoglobin ABG Oxyhemoglobin ABG Sodium ABG Chloride ABG Glucose Oxyhemoglobin Sodium Potassium Chloride Carbon Dioxide BUN Creatinine Glucose POC Glucose 139 H 141 H 157 H Lactic Acid Calcium Phosphorus Magnesium AST ALT Lactate Dehydrogenase Total Bilirubin Direct Bilirubin CK-MB (CK-2) C-Reactive Protein NT-Pro-B Natriuret Pep Total Protein Albumin Arterial Blood Glucose Urine WBC (Auto) Urine Creatinine 02/29/20 03/01/2003/01/20 23:35 06:00 11:53 WBC RBC Hgb Hct MCHC RDW MCV MCH Lymph % (Auto) [place] % (Auto) [place] # Eos # Lymph # (Auto) [place] # (Auto) Eos # (Auto) Seg Neutrophils % Seg Neuts % (Manual) Baso # (Auto) Lymphocytes % (Manual) Monocytes % (Manual) Eosinophils % (Manual) Basophils % (Manual) Seg Neutrophils # Seg Neutrophils # Man Lymphocytes # (Manual) Monocytes # (Manual) Eosinophils # (Manual) Nucleated RBC % Basophils # (Manual) PT INR APTT Heparin Anti-Xa Level ABG pH POC ABG pO2 ABG pO2 ABG HCO3 ABG O2 Saturation ABG Base Excess POC ABG pCO2 ABG Hemoglobin ABG Oxyhemoglobin ABG Sodium ABG Chloride ABG Glucose Oxyhemoglobin Sodium Potassium Chloride Carbon Dioxide BUN Creatinine Glucose POC Glucose 120 H 132 H 136 H Lactic Acid Calcium Phosphorus Magnesium AST ALT Lactate Dehydrogenase Total Bilirubin Direct Bilirubin CK-MB (CK-2) C-Reactive Protein NT-Pro-B Natriuret Pep Total Protein Albumin Arterial Blood Glucose Urine WBC (Auto) Urine Creatinine 03/01/20 03/01/20 03/02/20 17:36 23:16 05:12 WBC RBC Hgb Hct MCHC RDW MCV MCH Lymph % (Auto) [place] % (Auto) [place] # Eos # Lymph # (Auto) [place] # (Auto) Eos # (Auto) Seg Neutrophils % Seg Neuts % (Manual) Baso # (Auto) Lymphocytes % (Manual) Monocytes % (Manual) Eosinophils % (Manual) Basophils % (Manual) Seg Neutrophils # Seg Neutrophils # Man Lymphocytes # (Manual) Monocytes # (Manual) Eosinophils # (Manual) Nucleated RBC % Basophils # (Manual) PT INR APTT Heparin Anti-Xa Level ABG pH POC ABG pO2 ABG pO2 ABG HCO3 ABG O2 Saturation ABG Base Excess POC ABG pCO2 ABG Hemoglobin ABG Oxyhemoglobin ABG Sodium ABG Chloride ABG Glucose Oxyhemoglobin Sodium Potassium Chloride Carbon Dioxide BUN Creatinine Glucose POC Glucose 171 H 164 H 176 H Lactic Acid Calcium Phosphorus Magnesium AST ALT Lactate Dehydrogenase Total Bilirubin Direct Bilirubin CK-MB (CK-2) C-Reactive Protein NT-Pro-B Natriuret Pep Total Protein Albumin Arterial Blood Glucose Urine WBC (Auto) Urine Creatinine 03/02/20 03/02/20 03/03/20 11:42 18:01 00:06 WBC RBC Hgb Hct MCHC RDW MCV MCH Lymph % (Auto) [place] % (Auto) [place] # Eos # Lymph # (Auto) [place] # (Auto) Eos # (Auto) Seg Neutrophils % Seg Neuts % (Manual) Baso # (Auto) Lymphocytes % (Manual) Monocytes % (Manual) Eosinophils % (Manual) Basophils % (Manual) Seg Neutrophils # Seg Neutrophils # Man Lymphocytes # (Manual) Monocytes # (Manual) Eosinophils # (Manual) Nucleated RBC % Basophils # (Manual) PT INR APTT Heparin Anti-Xa Level ABG pH POC ABG pO2 ABG pO2 ABG HCO3 ABG O2 Saturation ABG Base Excess POC ABG pCO2 ABG Hemoglobin ABG Oxyhemoglobin ABG Sodium ABG Chloride ABG Glucose Oxyhemoglobin Sodium Potassium Chloride Carbon Dioxide BUN Creatinine Glucose POC Glucose 150 H 156 H 156 H Lactic Acid Calcium Phosphorus Magnesium AST ALT Lactate Dehydrogenase Total Bilirubin Direct Bilirubin CK-MB (CK-2) C-Reactive Protein NT-Pro-B Natriuret Pep Total Protein Albumin Arterial Blood Glucose Urine WBC (Auto) Urine Creatinine 03/03/20 03/03/20 03/03/20 03:31 11:20 16:55 WBC RBC Hgb Hct MCHC RDW MCV MCH Lymph % (Auto) [place] % (Auto) [place] # Eos # Lymph # (Auto) [place] # (Auto) Eos # (Auto) Seg Neutrophils % Seg Neuts % (Manual) Baso # (Auto) Lymphocytes % (Manual) Monocytes % (Manual) Eosinophils % (Manual) Basophils % (Manual) Seg Neutrophils # Seg Neutrophils # Man Lymphocytes # (Manual) Monocytes # (Manual) Eosinophils # (Manual) Nucleated RBC % Basophils # (Manual) PT INR APTT Heparin Anti-Xa Level ABG pH POC ABG pO2 ABG pO2 ABG HCO3 ABG O2 Saturation ABG Base Excess POC ABG pCO2 ABG Hemoglobin ABG Oxyhemoglobin ABG Sodium ABG Chloride ABG Glucose Oxyhemoglobin Sodium Potassium Chloride Carbon Dioxide BUN Creatinine Glucose POC Glucose 164 H 125 H 211 H Lactic Acid Calcium Phosphorus Magnesium AST ALT Lactate Dehydrogenase Total Bilirubin Direct Bilirubin CK-MB (CK-2) C-Reactive Protein NT-Pro-B Natriuret Pep Total Protein Albumin Arterial Blood Glucose Urine WBC (Auto) Urine Creatinine 03/04/20 03/04/20 03/04/20 00:29 05:20 12:09 WBC RBC Hgb Hct MCHC RDW MCV MCH Lymph % (Auto) [place] % (Auto) [place] # Eos # Lymph # (Auto) [place] # (Auto) Eos # (Auto) Seg Neutrophils % Seg Neuts % (Manual) Baso # (Auto) Lymphocytes % (Manual) Monocytes % (Manual) Eosinophils % (Manual) Basophils % (Manual) Seg Neutrophils # Seg Neutrophils # Man Lymphocytes # (Manual) Monocytes # (Manual) Eosinophils # (Manual) Nucleated RBC % Basophils # (Manual) PT INR APTT Heparin Anti-Xa Level ABG pH POC ABG pO2 ABG pO2 ABG HCO3 ABG O2 Saturation ABG Base Excess POC ABG pCO2 ABG Hemoglobin ABG Oxyhemoglobin ABG Sodium ABG Chloride ABG Glucose Oxyhemoglobin Sodium Potassium Chloride Carbon Dioxide BUN Creatinine Glucose POC Glucose 169 H 154 H 197 H Lactic Acid Calcium Phosphorus Magnesium AST ALT Lactate Dehydrogenase Total Bilirubin Direct Bilirubin CK-MB (CK-2) C-Reactive Protein NT-Pro-B Natriuret Pep Total Protein Albumin Arterial Blood Glucose Urine WBC (Auto) Urine Creatinine 03/04/20 03/04/20 03/04/20 18:00 20:38 20:38 WBC RBC Hgb 10.1 L Hct 32.7 L MCHC 31 L RDW 24.7 H MCV 79 L MCH 24 L Lymph % (Auto) [place] % (Auto) 8.9 H [place] # Eos # Lymph # (Auto) [place] # (Auto) Eos # (Auto) Seg Neutrophils % Seg Neuts % (Manual) Baso # (Auto) Lymphocytes % (Manual) Monocytes % (Manual) Eosinophils % (Manual) Basophils % (Manual) Seg Neutrophils # Seg Neutrophils # Man Lymphocytes # (Manual) Monocytes # (Manual) Eosinophils # (Manual) Nucleated RBC % Basophils # (Manual) PT INR APTT Heparin Anti-Xa Level ABG pH POC ABG pO2 ABG pO2 ABG HCO3 ABG O2 Saturation ABG Base Excess POC ABG pCO2 ABG Hemoglobin ABG Oxyhemoglobin ABG Sodium ABG Chloride ABG Glucose Oxyhemoglobin Sodium 136 L Potassium Chloride Carbon Dioxide BUN 25 H Creatinine 0.5 L Glucose 148 H POC Glucose 146 H Lactic Acid Calcium Phosphorus Magnesium AST ALT Lactate Dehydrogenase Total Bilirubin Direct Bilirubin CK-MB (CK-2) C-Reactive Protein NT-Pro-B Natriuret Pep Total Protein Albumin Arterial Blood Glucose Urine WBC (Auto) Urine Creatinine 03/04/20 03/05/20 03/05/20 23:17 05:44 11:32 WBC RBC Hgb Hct MCHC RDW MCV MCH Lymph % (Auto) [place] % (Auto) [place] # Eos # Lymph # (Auto) [place] # (Auto) Eos # (Auto) Seg Neutrophils % Seg Neuts % (Manual) Baso # (Auto) Lymphocytes % (Manual) Monocytes % (Manual) Eosinophils % (Manual) Basophils % (Manual) Seg Neutrophils # Seg Neutrophils # Man Lymphocytes # (Manual) Monocytes # (Manual) Eosinophils # (Manual) Nucleated RBC % Basophils # (Manual) PT INR APTT Heparin Anti-Xa Level ABG pH POC ABG pO2 ABG pO2 ABG HCO3 ABG O2 Saturation ABG Base Excess POC ABG pCO2 ABG Hemoglobin ABG Oxyhemoglobin ABG Sodium ABG Chloride ABG Glucose Oxyhemoglobin Sodium Potassium Chloride Carbon Dioxide BUN Creatinine Glucose POC Glucose 139 H 155 H 124 H Lactic Acid Calcium Phosphorus Magnesium AST ALT Lactate Dehydrogenase Total Bilirubin Direct Bilirubin CK-MB (CK-2) C-Reactive Protein NT-Pro-B Natriuret Pep Total Protein Albumin Arterial Blood Glucose Urine WBC (Auto) Urine Creatinine 03/05/20 03/05/20 03/06/20 17:45 23:18 12:16 WBC RBC Hgb Hct MCHC RDW MCV MCH Lymph % (Auto) [place] % (Auto) [place] # Eos # Lymph # (Auto) [place] # (Auto) Eos # (Auto) Seg Neutrophils % Seg Neuts % (Manual) Baso # (Auto) Lymphocytes % (Manual) Monocytes % (Manual) Eosinophils % (Manual) Basophils % (Manual) Seg Neutrophils # Seg Neutrophils # Man Lymphocytes # (Manual) Monocytes # (Manual) Eosinophils # (Manual) Nucleated RBC % Basophils # (Manual) PT INR APTT Heparin Anti-Xa Level ABG pH POC ABG pO2 ABG pO2 ABG HCO3 ABG O2 Saturation ABG Base Excess POC ABG pCO2 ABG Hemoglobin ABG Oxyhemoglobin ABG Sodium ABG Chloride ABG Glucose Oxyhemoglobin Sodium Potassium Chloride Carbon Dioxide BUN Creatinine Glucose POC Glucose 171 H 114 H 155 H Lactic Acid Calcium Phosphorus Magnesium AST ALT Lactate Dehydrogenase Total Bilirubin Direct Bilirubin CK-MB (CK-2) C-Reactive Protein NT-Pro-B Natriuret Pep Total Protein Albumin Arterial Blood Glucose Urine WBC (Auto) Urine Creatinine 03/06/20 03/06/20 03/07/20 17:27 23:48 06:02 WBC RBC Hgb Hct MCHC RDW MCV MCH Lymph % (Auto) [place] % (Auto) [place] # Eos # Lymph # (Auto) [place] # (Auto) Eos # (Auto) Seg Neutrophils % Seg Neuts % (Manual) Baso # (Auto) Lymphocytes % (Manual) Monocytes % (Manual) Eosinophils % (Manual) Basophils % (Manual) Seg Neutrophils # Seg Neutrophils # Man Lymphocytes # (Manual) Monocytes # (Manual) Eosinophils # (Manual) Nucleated RBC % Basophils # (Manual) PT INR APTT Heparin Anti-Xa Level ABG pH POC ABG pO2 ABG pO2 ABG HCO3 ABG O2 Saturation ABG Base Excess POC ABG pCO2 ABG Hemoglobin ABG Oxyhemoglobin ABG Sodium ABG Chloride ABG Glucose Oxyhemoglobin Sodium Potassium Chloride Carbon Dioxide BUN Creatinine Glucose POC Glucose 116 H 142 H 161 H Lactic Acid Calcium Phosphorus Magnesium AST ALT Lactate Dehydrogenase Total Bilirubin Direct Bilirubin CK-MB (CK-2) C-Reactive Protein NT-Pro-B Natriuret Pep Total Protein Albumin Arterial Blood Glucose Urine WBC (Auto) Urine Creatinine 03/07/20 03/08/20 03/08/20 11:36 05:18 11:51 WBC RBC Hgb Hct MCHC RDW MCV MCH Lymph % (Auto) [place] % (Auto) [place] # Eos # Lymph # (Auto) [place] # (Auto) Eos # (Auto) Seg Neutrophils % Seg Neuts % (Manual) Baso # (Auto) Lymphocytes % (Manual) Monocytes % (Manual) Eosinophils % (Manual) Basophils % (Manual) Seg Neutrophils # Seg Neutrophils # Man Lymphocytes # (Manual) Monocytes # (Manual) Eosinophils # (Manual) Nucleated RBC % Basophils # (Manual) PT INR APTT Heparin Anti-Xa Level ABG pH POC ABG pO2 ABG pO2 ABG HCO3 ABG O2 Saturation ABG Base Excess POC ABG pCO2 ABG Hemoglobin ABG Oxyhemoglobin ABG Sodium ABG Chloride ABG Glucose Oxyhemoglobin Sodium Potassium Chloride Carbon Dioxide BUN Creatinine Glucose POC Glucose 127 H 142 H 135 H Lactic Acid Calcium Phosphorus Magnesium AST ALT Lactate Dehydrogenase Total Bilirubin Direct Bilirubin CK-MB (CK-2) C-Reactive Protein NT-Pro-B Natriuret Pep Total Protein Albumin Arterial Blood Glucose Urine WBC (Auto) Urine Creatinine 03/08/20 03/08/20 03/09/20 18:14 23:45 05:36 WBC RBC Hgb Hct MCHC RDW MCV MCH Lymph % (Auto) [place] % (Auto) [place] # Eos # Lymph # (Auto) [place] # (Auto) Eos # (Auto) Seg Neutrophils % Seg Neuts % (Manual) Baso # (Auto) Lymphocytes % (Manual) Monocytes % (Manual) Eosinophils % (Manual) Basophils % (Manual) Seg Neutrophils # Seg Neutrophils # Man Lymphocytes # (Manual) Monocytes # (Manual) Eosinophils # (Manual) Nucleated RBC % Basophils # (Manual) PT INR APTT Heparin Anti-Xa Level ABG pH POC ABG pO2 ABG pO2 ABG HCO3 ABG O2 Saturation ABG Base Excess POC ABG pCO2 ABG Hemoglobin ABG Oxyhemoglobin ABG Sodium ABG Chloride ABG Glucose Oxyhemoglobin Sodium Potassium Chloride Carbon Dioxide BUN Creatinine Glucose POC Glucose 125 H 143 H 158 H Lactic Acid Calcium Phosphorus Magnesium AST ALT Lactate Dehydrogenase Total Bilirubin Direct Bilirubin CK-MB (CK-2) C-Reactive Protein NT-Pro-B Natriuret Pep Total Protein Albumin Arterial Blood Glucose Urine WBC (Auto) Urine Creatinine 03/09/20 03/09/20 03/09/20 06:32 06:32 11:34 WBC RBC Hgb 9.8 L Hct 31.6 L MCHC 31 L RDW 23.1 H MCV 80 L MCH 25 L Lymph % (Auto) 35.1 H [place] % (Auto) 11.4 H [place] # Eos # Lymph # (Auto) [place] # (Auto) Eos # (Auto) Seg Neutrophils % Seg Neuts % (Manual) Baso # (Auto) Lymphocytes % (Manual) Monocytes % (Manual) Eosinophils % (Manual) Basophils % (Manual) Seg Neutrophils # Seg Neutrophils # Man Lymphocytes # (Manual) Monocytes # (Manual) Eosinophils # (Manual) Nucleated RBC % Basophils # (Manual) PT INR APTT Heparin Anti-Xa Level ABG pH POC ABG pO2 ABG pO2 ABG HCO3 ABG O2 Saturation ABG Base Excess POC ABG pCO2 ABG Hemoglobin ABG Oxyhemoglobin ABG Sodium ABG Chloride ABG Glucose Oxyhemoglobin Sodium 136 L Potassium Chloride Carbon Dioxide BUN 25 H Creatinine 0.6 L Glucose 170 H POC Glucose 140 H Lactic Acid Calcium Phosphorus Magnesium AST ALT Lactate Dehydrogenase Total Bilirubin Direct Bilirubin CK-MB (CK-2) C-Reactive Protein NT-Pro-B Natriuret Pep Total Protein Albumin Arterial Blood Glucose Urine WBC (Auto) Urine Creatinine 03/09/20 03/09/20 03/10/20 18:10 23:11 05:41 WBC RBC Hgb Hct MCHC RDW MCV MCH Lymph % (Auto) [place] % (Auto) [place] # Eos # Lymph # (Auto) [place] # (Auto) Eos # (Auto) Seg Neutrophils % Seg Neuts % (Manual) Baso # (Auto) Lymphocytes % (Manual) Monocytes % (Manual) Eosinophils % (Manual) Basophils % (Manual) Seg Neutrophils # Seg Neutrophils # Man Lymphocytes # (Manual) Monocytes # (Manual) Eosinophils # (Manual) Nucleated RBC % Basophils # (Manual) PT INR APTT Heparin Anti-Xa Level ABG pH POC ABG pO2 ABG pO2 ABG HCO3 ABG O2 Saturation ABG Base Excess POC ABG pCO2 ABG Hemoglobin ABG Oxyhemoglobin ABG Sodium ABG Chloride ABG Glucose Oxyhemoglobin Sodium Potassium Chloride Carbon Dioxide BUN Creatinine Glucose POC Glucose 153 H 111 H 138 H Lactic Acid Calcium Phosphorus Magnesium AST ALT Lactate Dehydrogenase Total Bilirubin Direct Bilirubin CK-MB (CK-2) C-Reactive Protein NT-Pro-B Natriuret Pep Total Protein Albumin Arterial Blood Glucose Urine WBC (Auto) Urine Creatinine 03/10/20 03/10/20 03/10/20 11:15 17:58 23:36 WBC RBC Hgb Hct MCHC RDW MCV MCH Lymph % (Auto) [place] % (Auto) [place] # Eos # Lymph # (Auto) [place] # (Auto) Eos # (Auto) Seg Neutrophils % Seg Neuts % (Manual) Baso # (Auto) Lymphocytes % (Manual) Monocytes % (Manual) Eosinophils % (Manual) Basophils % (Manual) Seg Neutrophils # Seg Neutrophils # Man Lymphocytes # (Manual) Monocytes # (Manual) Eosinophils # (Manual) Nucleated RBC % Basophils # (Manual) PT INR APTT Heparin Anti-Xa Level ABG pH POC ABG pO2 ABG pO2 ABG HCO3 ABG O2 Saturation ABG Base Excess POC ABG pCO2 ABG Hemoglobin ABG Oxyhemoglobin ABG Sodium ABG Chloride ABG Glucose Oxyhemoglobin Sodium Potassium Chloride Carbon Dioxide BUN Creatinine Glucose POC Glucose 141 H 149 H 148 H Lactic Acid Calcium Phosphorus Magnesium AST ALT Lactate Dehydrogenase Total Bilirubin Direct Bilirubin CK-MB (CK-2) C-Reactive Protein NT-Pro-B Natriuret Pep Total Protein Albumin Arterial Blood Glucose Urine WBC (Auto) Urine Creatinine 03/11/20 03/11/20 03/12/20 05:55 17:43 04:45 WBC RBC Hgb Hct MCHC RDW MCV MCH Lymph % (Auto) [place] % (Auto) [place] # Eos # Lymph # (Auto) [place] # (Auto) Eos # (Auto) Seg Neutrophils % Seg Neuts % (Manual) Baso # (Auto) Lymphocytes % (Manual) Monocytes % (Manual) Eosinophils % (Manual) Basophils % (Manual) Seg Neutrophils # Seg Neutrophils # Man Lymphocytes # (Manual) Monocytes # (Manual) Eosinophils # (Manual) Nucleated RBC % Basophils # (Manual) PT INR APTT Heparin Anti-Xa Level ABG pH 7.454 H POC ABG pO2 69.2 L ABG pO2 ABG HCO3 ABG O2 Saturation ABG Base Excess POC ABG pCO2 ABG Hemoglobin 11.2 L ABG Oxyhemoglobin ABG Sodium 134.7 L ABG Chloride ABG Glucose 151 H Oxyhemoglobin Sodium Potassium Chloride Carbon Dioxide BUN Creatinine Glucose POC Glucose 181 H 107 H Lactic Acid Calcium Phosphorus Magnesium AST ALT Lactate Dehydrogenase Total Bilirubin Direct Bilirubin CK-MB (CK-2) C-Reactive Protein NT-Pro-B Natriuret Pep Total Protein Albumin Arterial Blood Glucose 151 H Urine WBC (Auto) Urine Creatinine 03/12/20 03/12/20 03/12/20 05:36 11:36 17:40 WBC RBC Hgb Hct MCHC RDW MCV MCH Lymph % (Auto) [place] % (Auto) [place] # Eos # Lymph # (Auto) [place] # (Auto) Eos # (Auto) Seg Neutrophils % Seg Neuts % (Manual) Baso # (Auto) Lymphocytes % (Manual) Monocytes % (Manual) Eosinophils % (Manual) Basophils % (Manual) Seg Neutrophils # Seg Neutrophils # Man Lymphocytes # (Manual) Monocytes # (Manual) Eosinophils # (Manual) Nucleated RBC % Basophils # (Manual) PT INR APTT Heparin Anti-Xa Level ABG pH POC ABG pO2 ABG pO2 ABG HCO3 ABG O2 Saturation ABG Base Excess POC ABG pCO2 ABG Hemoglobin ABG Oxyhemoglobin ABG Sodium ABG Chloride ABG Glucose Oxyhemoglobin Sodium Potassium Chloride Carbon Dioxide BUN Creatinine Glucose POC Glucose 137 H 122 H 116 H Lactic Acid Calcium Phosphorus Magnesium AST ALT Lactate Dehydrogenase Total Bilirubin Direct Bilirubin CK-MB (CK-2) C-Reactive Protein NT-Pro-B Natriuret Pep Total Protein Albumin Arterial Blood Glucose Urine WBC (Auto) Urine Creatinine 03/12/20 03/13/20 03/13/20 23:17 05:47 11:35 WBC RBC Hgb Hct MCHC RDW MCV MCH Lymph % (Auto) [place] % (Auto) [place] # Eos # Lymph # (Auto) [place] # (Auto) Eos # (Auto) Seg Neutrophils % Seg Neuts % (Manual) Baso # (Auto) Lymphocytes % (Manual) Monocytes % (Manual) Eosinophils % (Manual) Basophils % (Manual) Seg Neutrophils # Seg Neutrophils # Man Lymphocytes # (Manual) Monocytes # (Manual) Eosinophils # (Manual) Nucleated RBC % Basophils # (Manual) PT INR APTT Heparin Anti-Xa Level ABG pH POC ABG pO2 ABG pO2 ABG HCO3 ABG O2 Saturation ABG Base Excess POC ABG pCO2 ABG Hemoglobin ABG Oxyhemoglobin ABG Sodium ABG Chloride ABG Glucose Oxyhemoglobin Sodium Potassium Chloride Carbon Dioxide BUN Creatinine Glucose POC Glucose 118 H 142 H 146 H Lactic Acid Calcium Phosphorus Magnesium AST ALT Lactate Dehydrogenase Total Bilirubin Direct Bilirubin CK-MB (CK-2) C-Reactive Protein NT-Pro-B Natriuret Pep Total Protein Albumin Arterial Blood Glucose Urine WBC (Auto) Urine Creatinine 03/13/20 03/13/20 03/14/20 17:25 23:27 05:04 WBC RBC Hgb Hct MCHC RDW MCV MCH Lymph % (Auto) [place] % (Auto) [place] # Eos # Lymph # (Auto) [place] # (Auto) Eos # (Auto) Seg Neutrophils % Seg Neuts % (Manual) Baso # (Auto) Lymphocytes % (Manual) Monocytes % (Manual) Eosinophils % (Manual) Basophils % (Manual) Seg Neutrophils # Seg Neutrophils # Man Lymphocytes # (Manual) Monocytes # (Manual) Eosinophils # (Manual) Nucleated RBC % Basophils # (Manual) PT INR APTT Heparin Anti-Xa Level ABG pH POC ABG pO2 ABG pO2 ABG HCO3 ABG O2 Saturation ABG Base Excess POC ABG pCO2 ABG Hemoglobin ABG Oxyhemoglobin ABG Sodium ABG Chloride ABG Glucose Oxyhemoglobin Sodium Potassium Chloride Carbon Dioxide BUN Creatinine Glucose POC Glucose 138 H 160 H 159 H Lactic Acid Calcium Phosphorus Magnesium AST ALT Lactate Dehydrogenase Total Bilirubin Direct Bilirubin CK-MB (CK-2) C-Reactive Protein NT-Pro-B Natriuret Pep Total Protein Albumin Arterial Blood Glucose Urine WBC (Auto) Urine Creatinine 03/14/20 03/14/20 03/15/20 11:19 16:18 00:18 WBC RBC Hgb Hct MCHC RDW MCV MCH Lymph % (Auto) [place] % (Auto) [place] # Eos # Lymph # (Auto) [place] # (Auto) Eos # (Auto) Seg Neutrophils % Seg Neuts % (Manual) Baso # (Auto) Lymphocytes % (Manual) Monocytes % (Manual) Eosinophils % (Manual) Basophils % (Manual) Seg Neutrophils # Seg Neutrophils # Man Lymphocytes # (Manual) Monocytes # (Manual) Eosinophils # (Manual) Nucleated RBC % Basophils # (Manual) PT INR APTT Heparin Anti-Xa Level ABG pH POC ABG pO2 ABG pO2 ABG HCO3 ABG O2 Saturation ABG Base Excess POC ABG pCO2 ABG Hemoglobin ABG Oxyhemoglobin ABG Sodium ABG Chloride ABG Glucose Oxyhemoglobin Sodium Potassium Chloride Carbon Dioxide BUN Creatinine Glucose POC Glucose 130 H 170 H 125 H Lactic Acid Calcium Phosphorus Magnesium AST ALT Lactate Dehydrogenase Total Bilirubin Direct Bilirubin CK-MB (CK-2) C-Reactive Protein NT-Pro-B Natriuret Pep Total Protein Albumin Arterial Blood Glucose Urine WBC (Auto) Urine Creatinine 03/15/20 03/15/20 03/15/20 04:05 04:05 05:36 WBC RBC Hgb 10.0 L Hct 31.6 L MCHC RDW 22.4 H MCV 77 L MCH 24 L Lymph % (Auto) 36.2 H [place] % (Auto) 9.4 H [place] # Eos # Lymph # (Auto) [place] # (Auto) Eos # (Auto) Seg Neutrophils % Seg Neuts % (Manual) Baso # (Auto) Lymphocytes % (Manual) Monocytes % (Manual) Eosinophils % (Manual) Basophils % (Manual) Seg Neutrophils # Seg Neutrophils # Man Lymphocytes # (Manual) Monocytes # (Manual) Eosinophils # (Manual) Nucleated RBC % Basophils # (Manual) PT INR APTT Heparin Anti-Xa Level ABG pH POC ABG pO2 ABG pO2 ABG HCO3 ABG O2 Saturation ABG Base Excess POC ABG pCO2 ABG Hemoglobin ABG Oxyhemoglobin ABG Sodium ABG Chloride ABG Glucose Oxyhemoglobin Sodium Potassium Chloride Carbon Dioxide 32 H BUN Creatinine 0.5 L Glucose 141 H POC Glucose 130 H Lactic Acid Calcium Phosphorus Magnesium AST ALT Lactate Dehydrogenase Total Bilirubin Direct Bilirubin CK-MB (CK-2) C-Reactive Protein NT-Pro-B Natriuret Pep Total Protein Albumin Arterial Blood Glucose Urine WBC (Auto) Urine Creatinine 03/15/20 03/15/20 03/15/20 11:41 17:38 23:16 WBC RBC Hgb Hct MCHC RDW MCV MCH Lymph % (Auto) [place] % (Auto) [place] # Eos # Lymph # (Auto) [place] # (Auto) Eos # (Auto) Seg Neutrophils % Seg Neuts % (Manual) Baso # (Auto) Lymphocytes % (Manual) Monocytes % (Manual) Eosinophils % (Manual) Basophils % (Manual) Seg Neutrophils # Seg Neutrophils # Man Lymphocytes # (Manual) Monocytes # (Manual) Eosinophils # (Manual) Nucleated RBC % Basophils # (Manual) PT INR APTT Heparin Anti-Xa Level ABG pH POC ABG pO2 ABG pO2 ABG HCO3 ABG O2 Saturation ABG Base Excess POC ABG pCO2 ABG Hemoglobin ABG Oxyhemoglobin ABG Sodium ABG Chloride ABG Glucose Oxyhemoglobin Sodium Potassium Chloride Carbon Dioxide BUN Creatinine Glucose POC Glucose 114 H 144 H 116 H Lactic Acid Calcium Phosphorus Magnesium AST ALT Lactate Dehydrogenase Total Bilirubin Direct Bilirubin CK-MB (CK-2) C-Reactive Protein NT-Pro-B Natriuret Pep Total Protein Albumin Arterial Blood Glucose Urine WBC (Auto) Urine Creatinine 03/16/20 03/16/20 05:39 13:16 WBC RBC Hgb Hct MCHC RDW MCV MCH Lymph % (Auto) [place] % (Auto) [place] # Eos # Lymph # (Auto) [place] # (Auto) Eos # (Auto) Seg Neutrophils % Seg Neuts % (Manual) Baso # (Auto) Lymphocytes % (Manual) Monocytes % (Manual) Eosinophils % (Manual) Basophils % (Manual) Seg Neutrophils # Seg Neutrophils # Man Lymphocytes # (Manual) Monocytes # (Manual) Eosinophils # (Manual) Nucleated RBC % Basophils # (Manual) PT INR APTT Heparin Anti-Xa Level ABG pH POC ABG pO2 ABG pO2 ABG HCO3 ABG O2 Saturation ABG Base Excess POC ABG pCO2 ABG Hemoglobin ABG Oxyhemoglobin ABG Sodium ABG Chloride ABG Glucose Oxyhemoglobin Sodium Potassium Chloride Carbon Dioxide BUN Creatinine Glucose POC Glucose 125 H 153 H Lactic Acid Calcium Phosphorus Magnesium AST ALT Lactate Dehydrogenase Total Bilirubin Direct Bilirubin CK-MB (CK-2) C-Reactive Protein NT-Pro-B Natriuret Pep Total Protein Albumin Arterial Blood Glucose Urine WBC (Auto) Urine Creatinine Allied health notes reviewed: RT
[2020-03-16] MEDS: DIGOXIN 0.125 MG TAB PO SCH (18:02)
[2020-03-16] MEDS: TAMSULOSIN 0.4 MG CAP PO SCH (21:27)
[2020-03-16] MEDS: POLYETHYLENE GLYCOL 3350 17 GM POWDER PO SCH (21:28)
[2020-03-17] MEDS: INSULIN REGULAR, HUMAN 100 UNIT/ML 3ML VIAL SUB-Q SCH ×4 (04:59→18:15)
--- NOTE | 2020-03-17 09:40 | Progress Note ---
Assessment and Plan Assessment and plan: --Ischemic cardiomyopathy Cardiology is following, status post cardiac catheterization on 01/22/2020; Co ronary artery disease status post PCI and stent to the LAD Continue current cardiac medications --Acute on chronic hypoxemic respiratory failure; Patient has tracheostomy on vent Continue nebulizers, , trach care Wean off ventilator as tolerated Pulmonary critical following --Acute exacerbation of COPD; Patient is currently on ventilatory support Continue nebulizers --Left lower lobe PE; Continue Eliquis, ventilatory support --Acute right lower extremity DVT; Patient is on Eliquis --Bilateral multifocal pneumonia/community-acquired Completed antibiotics, improved --Severe sepsis/bilateral pneumonia: Completed antibiotics COVID-19 test; 11/24/2019; negative 11/26/2019; negative 12/29/2019: Negative --Paroxysmal atrial fibrillation; Now rate controlled, Stable on amiodarone and Eliquis --Acute on chronic combined systolic and diastolic congestive heart failure Ischemic cardiomyopathy left ventricular ejection fraction 40 to 45% --H/o CAD [[facility] 12/2018 in-stent restenosis] Patient is stable on current cardiac medications --Hypertensive emergency; present on admission Reasonable blood pressures, continue current antihypertensives As needed medications --History of alcohol abuse/alcohol withdrawal; Was on CIWA protocol, now stable --Oropharyngeal dysphagia; status post PEG placement Continue PEG feeds per protocol --History of partial small bowel obstruction; resolved Surgery evaluated. --Obesity; BMI 34.7 Patient needs weight reduction when medically stable --Severe protein calorie malnutrition/hypoalbuminemia Nutrition supplements, dietitian following, PEG feeds --DVT prophylaxis;Eliquis --Full CODE STATUS 01/05; Pt stable. NGT output 650cc over 24 hours, bilious. No f/c, WBC within normal limits. cont NG suction and cont to hold TF 01/06: Abs series - mild improvement in small bowel distension in mid abdomen, normal gas/stool pattern in colon. NGT in duodenum. Continue to hold tube feeding, maintain NG tube with low intermittent suction. Patient's was updated by phone. Continue to provide supportive care and monitor clinically. 01/07: +BMs today and NGT/PEG output appears more gastric today. Plan to clamp NGT, if tolerates start TF from tomorrow. cont supportive care. 01/08; Gastric output decreased over last 24 hours. NGT has been clamped x 24 hours. plan to dc NGT and to start TTF via PEG - vital HF @10cc/hr 01/09: clinically stable, tolerating TF. monitor BMP, wean off from vent as tolerated clinically stable, on TF. wean off vent as tolerated 01/11: wean off from vent, cont to monitor, on TF 01/12: wean off from vent, cont to monitor, on TF. need placement - unfunded 01/13; remains on ventilatory support, unable to wean, DC planning possible LTAC, unfunded 01/14; patient of ventilatory support, T-piece tracheostomy on oxygen, LTAC placement per case management 01/16; tracheostomy, patient on full ventilatory support, wean off vent support as tolerated, pending LTAC placement, social financial issues 01/17; awaiting LTAC placement, insurance and financial issues 01/18; patient tracheostomy remains on ventilatory support 01/19; wean off ventilator as tolerated 01/20; remains on ventilatory support, patient complains of intermittent chest pain, cardiology recommend left heart catheterization tomorrow 01/22/2020. Patient for left heart catheterization per cardiology. Patient remains on AC mode ventilation rate 12, tidal volume 450, FiO2 30% and PEEP of 6. Continue tracheostomy care, airway management and secretion control. 01/23/2020. Cardiac catheterization completed yesterday revealed widely patent previous LAD stent with mild nonobstructive atherosclerosis of the right mid coronary artery and rest of the coronary system was without significant atherosclerosis. The left ventricle ejection fraction was mildly impaired at 40 to 45%. There was some hypokinesis of the basal inferior wall suggestive of previous or recent infarct. Continue GDMT for coronary artery disease including beta blockers, topical nitrates, statin and Plavix. Continue Eliquis for paroxysmal atrial fibrillation and PE. Continue diuresis with Lasix and follow electrolytes closely. Continue Robinul and scopolamine for secretion control and daily SBT per pulmonary. Also, continue bronchodilators and routine trach care/airway management. T-piece trials per pulmonary as tolerated. 01/24/2020. Recent cardiac catheterization has documented widely patent left anterior descending artery stent with minimal nonobstructive diffuse coronary artery disease in the rest of the coronary arteries. Evidence of ischemic cardiomyopathy with inferior wall hypokinesis. Continue with guideline directed medical therapy. Continue Robinul and scopolamine for secretion control and daily SBT per pulmonary. Continue bronchodilators and routine trach care/airway management. T-piece trials per pulmonary as tolerated. 01/25/2020. Continue with guideline directed medical therapy for systolic heart failure. Cardiac catheterization revealed evidence of ischemic cardiomyopathy with inferior wall hypokinesis (EF 40-45%). Patient currently on T-piece with oxygen 10 L/min FiO2 40%. Continue Robinul and scopolamine for secretion control. Continue bronchodilators and routine trach care/airway management. 02/03: Mental status more improved, agree with Reglan will change to IV scheduled for two days, no new vomiting. Pseudomonas A in Sputum. 02/04: Clinical improving, amiodarone discontinued due to LFTs, continue Metoprolol.d/w GI, started on Golytely to clear impaction. Started on dialy Miralax. 02/05: Continue supportive care. Noted bowel movement, continue bowel regimen 02/06: Cardiology input noted beta-hebert increased for better suppression of atrial fibrillation. Continue to monitor, no other evidence of nausea vomiting noted. Discussed with respiratory therapist will be continued on weaning protocol with pressure support today. 02/07: Patient successfully weaned off the ventilator, No new complaints, c ontinue monitoring, BM noted, Discussed with pulmonary, 02/08; tracheostomy on T-piece, patient is more alert and awake today 02/09; clinically no change, tracheostomy on vent 02/10; tracheostomy on vent, full CODE STATUS, poor prognosis, 02/11; clinically no change, remains on ventilatory support, full CODE STATUS, discussed with spouse Ms. Paulette Araiza extensively today 02/12. Patient resting comfortably no change on vent with tracheostomy. Still unable to wean. Some increased crackles today. 02/13: Still unable to wean from the vent. Overall prognosis remains extremely poor. 02/14; remains critically ill, tracheostomy on vent, unable to wean, poor prognosis, full CODE STATUS 02/15; patient is more alert and awake today, chronic tracheostomy on T-piece, continue current management DC planning per case management. Disposition very difficult due to lack of resources and insurance 02/17/2020. Patient remains on mechanical ventilation and tolerating PSV trials. Patient currently with PSV 10/6 at FiO2 of 30%. 02/18/2020. Patient currently on PSV 10/6 with FiO2 of 40%. 40% T-piece trial was attempted but patient unable to tolerate due to saturations dropping into the 80s and heart rate in the 140s. Therefore, patient placed back on PSV. Continue anticoagulation with Eliquis. Continue secretion control with Robinul and scopolamine. Continue rate control with metoprolol and digoxin. 02/19/2020. Patient currently on PSV 10/6 with FiO2 of 30%. T-piece trial attempted yesterday but patient did not tolerate. Continue T-piece trials as tolerated. Continue anticoagulation with Eliquis. Continue secretion control with Robinul and scopolamine. Continue rate control with metoprolol and digoxin. Continue to follow with case management with regards to discharge pl anning. 02/20/2020. Patient continues to tolerate PSV 10/6. Continue rate control with metoprolol and digoxin. Amiodarone discontinued due to elevated liver transaminases. Eliquis for anticoagulation acute PE/DVT. 02/21/2020. Patient continues to tolerate PSV 10/6 at FiO2 of 30%. Continue ra te control with metoprolol and digoxin. Amiodarone discontinued due to elevated liver transaminases. Eliquis for anticoagulation acute PE/DVT. 02/22/2020. Patient continues to tolerate PSV 10/6 at FiO2 of 30%. Continue rate control with metoprolol and digoxin. Amiodarone discontinued due to el evated liver transaminases. Eliquis for anticoagulation acute PE/DVT. 02/22. Awake and alert on vent. Vitals stable. 02/23. Awake and alert on vent. Requests for ice. Vitals stable 02/24. Trach to vent. Continue rate control with metoprolol and digoxin. Amiodarone discontinued due to elevated liver transaminases. Eliquis for anticoagulation of acute PE/DVT. Transferred to [facility] 02/25. Seen in [facility]. Requests for ice. RN to provide a cube of ice. Vitals stable. 02/26. No change in medical condition. Slightly tachy this AM. Will monitor. 02/27. Cardiology started him on a beta hebert. Still on vent 02/28. Discharge planning as per operator command support systems. Still on vent. Tachycardia noted. 03/01/2020; patient is tachycardic, still on the vent. Discharge management as per operator command support systems. 03/02/2020; patient is on a vent and trach. Discharge is per operator command support systems. 03/03/2012; patient is on vent and trach patient is alert and oriented. 03/04/2020; patient is on vent and trach, patient is alert. 03/05/2020; patient is on vent and trach, patient is alert. 03/06/2020 tracheostomy on vent , patient is alert, possible LTAC placement 03/08/2020 remains on ventilatory support; wean off the vent, pending LTAC placement 03/09/2020; clinically no change, tracheostomy on ventilatory support, unable to wean, awaiting LTAC placement, social issues 03/10/2020; clinically no change; patient alert and awake; 03/11/2020; patient is more alert and awake asking for some water, remains on ventilatory support, awaiting LTAC placement 03/12/2020; clinically no change, tracheostomy on ventilatory support, unable to wean, awaiting LTAC placement 03/13 patient on vent via tracheostomy, alert and oriented and offers no complaints except some neck pain. Denies any chest pain or shortness of breath or palpitations. All interdisciplinary notes reviewed 03/14/2020. Patient currently on AC mode ventilation rate of 12 tidal volume 450 FiO2 30% and a PEEP of 6. Patient is s/p tracheostomy on ventilatory support awaiting LTAC placement. 03/15/2020. Patient remains on AC mode ventilation rate 12, tidal volume 450, FiO2 30% and PEEP of 6. Patient failed CPAP trials. Unfortunately, Patient is uninsured and his only d/c option is to return home with family. 03/16/20. Patient remains on AC mode ventilation rate 12, tidal volume 450, FiO2 30% and PEEP of 6. Cont. PSV as figueroa. Patient is uninsured and his only d/c option is to return home with family. 03/17/2020. Patient remains on AC mode ventilation rate 12, tidal volume 450, FiO2 30% and PEEP of 6. Cont. PSV as figueroa. Patient is uninsured and his only d/c option is to return home with family. The high probability of a clinically significant, sudden or life threatening deterioration of the [Respiratory, cardiovascular & neurological] system(s) required my full and direct attention, intervention and personal management. The aggregate critical care time was [32] minutes without overlap. Time includes spent on [x] Data Review and interpretation [x] Patient assessment and monitoring of vital signs [x] Documentation [x] Medication orders and management History Interval history: Patient is a 64-year-old male with known history of hypertension, COPD, history of coronary artery disease, CHF with ejection fraction of 20 to 25% 2019 was admitted through emergency room with worsening shortness of breath Patient was found to be hypoxic and in respiratory distress. Patient was placed on CPAP in route to the hospital. Patient remained hypoxic on CPAP BiPAP ,subsequently was intubated. Patient also had bilateral multifocal pneumonia managed appropriately with a ntibiotics sputum cultures positive for Pseudomonas, ID treated with cefepime and Vanco. His hospital course became complicated with acute PE, DVT, paroxysmal atrial fib - placed on chronic anticoagulation. Patient was difficult to wean off, status post trach and PEG, remains on mechanical ventilation with trach tube. He then developed partial small bowel obstruction evaluated by general surgeon symptom improved with medical Mx, patient was briefly weaned off ventilatory support however, was in respiratory failure requiring full ventilatory support. Cardiac catheterization on 01/22/2020. Patient remains on mechanical ventilatory support. Patients still with elevated heart rate of Afib with RVR continue amiodarone and metoprolol. LVEF 40 to 45% on Eliquis FOR THE Acute PE/DVT. Partial SBO vs ileus- KUB is negative. Brief history; Patient is a 64-year-old male with known history of hypertension, COPD, history of coronary artery disease, CHF with ejection fraction of 20 to 25% 2019 was admitted through emergency room with worsening shortness of breath Patient was found to be hypoxic and in respiratory distress. Patient was placed on CPAP in route to the hospital. Patient remained hypoxic on CPAP BiPAP ,subsequently was intubated, vent dependent. Unable to wean subsequently had tracheostomy and PEG placement, patient also has acute PE DVT and paroxysmal atrial fibrillation on chronic anticoagulation. Patient is vent dependent, social issues, awaiting LTAC placement Hospitalist Physical - Constitutional Vitals: Temp Pulse Resp BP Pulse Ox 97.9 F 108 H 21 96/71 96 03/17/20 08:00 03/17/20 08:01 03/17/20 08:01 03/17/20 08:01 03/17/20 08:01 General appearance: Present: no acute distress, well-nourished, other (Tracheostomy on vent) - EENT Eyes: Present: PERRL, EOM intact ENT: hearing intact, clear oral mucosa, dentition normal - Neck Neck: Present: supple, normal ROM - Respiratory Respiratory effort: normal Respiratory: bilateral: CTA - Cardiovascular Rhythm: regular Heart Sounds: Present: S1 & S2. Absent: gallop, rub - Extremities Extremities: no ischemia, No edema, Full ROM - Abdominal General gastrointestinal: soft, non-tender, non-distended, normal bowel sounds - Integumentary Integumentary: Present: clear, warm, dry - Neurologic Neurologic: CNII-XII intact, moves all extremities HEART Score - HEART Score Troponin: Troponin T < 0.010 ng/mL (0.00-0.029) 01/19/20 01:35 Results - Labs CBC & Chem 7: 03/15/20 04:05 03/15/20 04:05 Labs: Laboratory Last Values WBC 6.0 K/mm3 (4.5-11.0) 03/15/20 04:05 RBC 4.09 M/mm3 (3.65-5.03) 03/15/20 04:05 Hgb 10.0 gm/dl (11.8-15.2) L 03/15/20 04:05 Hct 31.6 % (35.5-45.6) L 03/15/20 04:05 MCV 77 fl (84-94) L 03/15/20 04:05 MCH 24 pg (28-32) L 03/15/20 04:05 MCHC 32 % (32-34) 03/15/20 04:05 RDW 22.4 % (13.2-15.2) H 03/15/20 04:05 Plt Count 205 K/mm3 (140-440) 03/15/20 04:05 Lymph % (Auto) 36.2 % (13.4-35.0) H 03/15/20 04:05 [place] % (Auto) 9.4 % (0.0-7.3) H 03/15/20 04:05 Eos % (Auto) 2.8 % (0.0-4.3) 03/15/20 04:05 Baso % (Auto) 0.6 % (0.0-1.8) 03/15/20 04:05 Lymph # (Auto) 2.2 K/mm3 (1.2-5.4) 03/15/20 04:05 [place] # (Auto) 0.6 K/mm3 (0.0-0.8) 03/15/20 04:05 Eos # (Auto) 0.2 K/mm3 (0.0-0.4) 03/15/20 04:05 Baso # (Auto) 0.0 K/mm3 (0.0-0.1) 03/15/20 04:05 Add Manual Diff Complete 02/15/20 06:59 Total Counted 100 02/15/20 06:59 Seg Neutrophils % 51.0 % (40.0-70.0) 03/15/20 04:05 Seg Neuts % (Manual) 58.0 % (40.0-70.0) 02/15/20 06:59 Band Neutrophils % 0 % 02/15/20 06:59 Lymphocytes % (Manual) 34.0 % (13.4-35.0) 02/15/20 06:59 Reactive Lymphs % (Man) 1.0 % 02/15/20 06:59 Monocytes % (Manual) 4.0 % (0.0-7.3) 02/15/20 06:59 Eosinophils % (Manual) 0 % (0.0-4.3) 02/15/20 06:59 Basophils % (Manual) 2.0 % (0.0-1.8) H 02/15/20 06:59 Metamyelocytes % 1.0 % 02/15/20 06:59 Myelocytes % 0 % 02/15/20 06:59 Promyelocytes % 0 % 02/15/20 06:59 Blast Cells % 0 % 02/15/20 06:59 Nucleated RBC % 1.0 % (0.0-0.9) H 02/15/20 06:59 Seg Neutrophils # 3.0 K/mm3 (1.8-7.7) 03/15/20 04:05 Seg Neutrophils # Man 5.9 K/mm3 (1.8-7.7) 02/15/20 06:59 Band Neutrophils # 0.0 K/mm3 02/15/20 06:59 Lymphocytes # (Manual) 3.5 K/mm3 (1.2-5.4) 02/15/20 06:59 Abs React Lymphs (Man) 0.1 K/mm3 02/15/20 06:59 Monocytes # (Manual) 0.4 K/mm3 (0.0-0.8) 02/15/20 06:59 Eosinophils # (Manual) 0.0 K/mm3 (0.0-0.4) 02/15/20 06:59 Basophils # (Manual) 0.2 K/mm3 (0.0-0.1) H 02/15/20 06:59 Metamyelocytes # 0.1 K/mm3 02/15/20 06:59 Myelocytes # 0.0 K/mm3 02/15/20 06:59 Promyelocytes # 0.0 K/mm3 02/15/20 06:59 Blast Cells # 0.0 K/mm3 02/15/20 06:59 WBC Morphology Not Reportable 02/15/20 06:59 Hypersegmented Neuts Not Reportable 02/15/20 06:59 Hyposegmented Neuts Not Reportable 02/15/20 06:59 Hypogranular Neuts Not Reportable 02/15/20 06:59 Smudge Cells Not Reportable 02/15/20 06:59 Toxic Granulation Not Reportable 02/15/20 06:59 Toxic Vacuolation Not Reportable 02/15/20 06:59 Dohle Bodies Not Reportable 02/15/20 06:59 Pelger-Huet Anomaly Not Reportable 02/15/20 06:59 Hector Rods Not Reportable 02/15/20 06:59 Platelet Estimate Consistent w auto 02/15/20 06:59 Clumped Platelets Not Reportable 02/15/20 06:59 Plt Clumps, EDTA Not Reportable 02/15/20 06:59 Large Platelets Not Reportable 02/15/20 06:59 Giant Platelets Not Reportable 02/15/20 06:59 Platelet Satelliting Not Reportable 02/15/20 06:59 Plt Morphology Comment Giant platelets 02/15/20 06:59 RBC Morphology Not Reportable 02/15/20 06:59 Dimorphic RBCs Not Reportable 02/15/20 06:59 Polychromasia Not Reportable 02/15/20 06:59 Hypochromasia 1+ 02/15/20 06:59 Poikilocytosis Few 02/15/20 06:59 Anisocytosis 1+ 02/15/20 06:59 Microcytosis Not Reportable 02/15/20 06:59 Macrocytosis Not Reportable 02/15/20 06:59 Spherocytes Not Reportable 02/15/20 06:59 Pappenheimer Bodies Not Reportable 02/15/20 06:59 Sickle Cells Not Reportable 02/15/20 06:59 Target Cells 1+ 02/15/20 06:59 Tear Drop Cells Few 02/15/20 06:59 Ovalocytes Not Reportable 02/15/20 06:59 Helmet Cells Not Reportable 02/15/20 06:59 [place] Bodies Not Reportable 02/15/20 06:59 [place] Rings Not Reportable 02/15/20 06:59 [place] Cells Not Reportable 02/15/20 06:59 Bite Cells Not Reportable 02/15/20 06:59 Crenated Cell Not Reportable 02/15/20 06:59 Elliptocytes Few 02/15/20 06:59 Acanthocytes (Spur) Not Reportable 02/15/20 06:59 Rouleaux Not Reportable 02/15/20 06:59 Hemoglobin C Crystals Not Reportable 02/15/20 06:59 Schistocytes Not Reportable 02/15/20 06:59 Malaria parasites Not Reportable 02/15/20 06:59 [place] Bodies Not Reportable 02/15/20 06:59 Hem Pathologist Commnt No 02/15/20 06:59 PT 27.0 Sec. (12.2-14.9) H 02/07/20 15:03 INR 2.46 (0.87-1.13) H 02/07/20 15:03 APTT 31.5 Sec. (24.2-36.6) 01/22/20 09:58 Heparin Anti-Xa Level 1.34 U.I./ml (0.3-0.7) H 01/22/20 04:45 ABG pH 7.454 (7.320-7.450) H 03/12/20 04:45 POC ABG pCO2 45.6 mmHg (32.0-48.0) 03/12/20 04:45 ABG pCO2 47.8 mm Hg 02/20/20 06:45 POC ABG pO2 69.2 mmHg (83-108) L 03/12/20 04:45 ABG pO2 88.7 mm Hg (80.0-90.0) 02/20/20 06:45 POC ABG HCO3 31.3 03/12/20 04:45 ABG HCO3 33.3 mmol/L (20.0-26.0) H 02/20/20 06:45 ABG O2 Saturation 97.2 % (95.0-99.0) 02/20/20 06:45 ABG O2 Content 13.3 (0.0-44) 02/20/20 06:45 POC ABG Base Excess 6.5 03/12/20 04:45 ABG Base Excess 8.4 mmol/L (-2.0-3.0) H 02/20/20 06:45 ABG Hemoglobin 11.2 (12.0-17.5) L 03/12/20 04:45 ABG Oxyhemoglobin 84 (94-98) L 12/22/19 03:22 ABG Carboxyhemoglobin 2.9 % (0.0-5.0) 02/20/20 06:45 ABG Methemoglobin 0.4 % (0.0-1.5) 02/20/20 06:45 ABG Sodium 134.7 mmol/L (136.0-145.0) L 03/12/20 04:45 ABG Potassium 3.9 mmol/L (3.40-4.50) 03/12/20 04:45 ABG Chloride 98.0 mmol/L (98-107) 03/12/20 04:45 ABG Glucose 151 mg/dL (65-95) H 03/12/20 04:45 Oxyhemoglobin 94.1 % (95.0-99.0) L 02/20/20 06:45 Carboxyhemoglobin 0.7 (0.5-1.5) 12/22/19 03:22 FiO2 30 03/12/20 04:45 Sodium 137 mmol/L (137-145) 03/15/20 04:05 Potassium 4.3 mmol/L (3.6-5.0) 03/15/20 04:05 Chloride 98.7 mmol/L (98-107) 03/15/20 04:05 Carbon Dioxide 32 mmol/L (22-30) H 03/15/20 04:05 Anion Gap 11 mmol/L 03/15/20 04:05 BUN 17 mg/dL (9-20) 03/15/20 04:05 Creatinine 0.5 mg/dL (0.8-1.3) L 03/15/20 04:05 Estimated GFR > 60 ml/min 03/15/20 04:05 BUN/Creatinine Ratio 34 % 03/15/20 04:05 Glucose 141 mg/dL (75-100) H 03/15/20 04:05 POC Glucose 160 mg/dL (70-105) H 03/17/20 05:50 Lactic Acid 1.60 mmol/L (0.7-2.0) 02/03/20 12:49 Calcium 9.0 mg/dL (8.4-10.2) 03/15/20 04:05 Ferritin 84.4 ng/mL (30.0-300.0) 11/24/19 04:53 Phosphorus 4.10 mg/dL (2.5-4.5) 01/31/20 19:24 Magnesium 2.40 mg/dL (1.7-2.3) H 02/10/20 07:40 Total Bilirubin 1.30 mg/dL (0.1-1.2) H 02/08/20 19:00 Direct Bilirubin 0.9 mg/dL (0-0.2) H 02/08/20 19:00 Indirect Bilirubin 0.4 mg/dL 02/08/20 19:00 Total Creatine Kinase 141 units/L (55-170) 11/24/19 02:53 CK-MB (CK-2) 4.3 ng/mL (0.0-4.0) H 11/24/19 02:53 AST 309 units/L (5-40) H 02/08/20 19:00 ALT 650 units/L (7-56) H 02/08/20 19:00 CK-MB (CK-2) Rel Index 3.0 (0-4) 11/24/19 02:53 Alkaline Phosphatase 109 units/L (35-129) 02/08/20 19:00 C-Reactive Protein 8.50 mg/dL (0.00-1.30) H 12/01/19 12:16 Ammonia 35.0 umol/L (25-60) 02/03/20 12:49 Lactate Dehydrogenase 228 units/L (91-180) H 12/19/19 04:45 Troponin T < 0.010 ng/mL (0.00-0.029) 01/19/20 01:35 NT-Pro-B Natriuret Pep 3866 pg/mL (0-900) H 01/01/20 10:40 Total Protein 6.2 g/dL (6.3-8.2) L 02/08/20 19:00 Albumin 2.7 g/dL (3.9-5) L 02/08/20 19:00 Albumin/Globulin Ratio 0.8 % 02/08/20 19:00 Procalcitonin 0.44 ng/mL (<0.15) 02/03/20 12:49 Arterial Blood Glucose 151 mg/dL (65-95) H 03/12/20 04:45 Arterial Blood Ionized Calcium 4.8 mg/dL (4.6-5.3) 03/12/20 04:45 Urine Color [place] (Yellow) 02/26/20 07:50 Urine Turbidity Clear (Clear) 02/26/20 07:50 Urine pH 5.0 (5.0-7.0) 02/26/20 07:50 Ur Specific [place] 1.025 (1.003-1.030) 02/26/20 07:50 Urine Protein 30 mg/dl mg/dL (Negative) 02/26/20 07:50 Urine Glucose (UA) Neg mg/dL (Negative) 02/26/20 07:50 Urine Ketones Neg mg/dL (Negative) 02/26/20 07:50 Urine Blood Sm (Negative) 02/26/20 07:50 Urine Nitrite Neg (Negative) 02/26/20 07:50 Urine Bilirubin Neg (Negative) 02/26/20 07:50 Urine Urobilinogen 4.0 mg/dL (<2.0) 02/26/20 07:50 Ur Leukocyte Esterase Lg (Negative) 02/26/20 07:50 Urine WBC (Auto) > 182.0 /HPF (0.0-6.0) H 02/26/20 07:50 Urine RBC (Auto) 84.0 /HPF (0.0-6.0) 02/26/20 07:50 U Epithel Cells (Auto) 2.0 /HPF (0-13.0) 12/31/19 18:04 Urine Bacteria (Auto) 4+ /HPF (Negative) 02/26/20 07:50 Urine WBC Clumps 2+ /HPF 02/26/20 07:50 Urine Mucus 1+ /HPF 02/26/20 07:50 Urine Creatinine 57.4 mg/dL (0.1-20.0) H 01/31/20 Unknown Urine Sodium 59 mmol/L 01/31/20 Unknown Vancomycin Trough 14.2 ug/mL (5.0-20.0) 12/13/19 15:01 Coronavirus (PCR) Negative (Negative) 12/29/19 10:07 Hepatitis A IgM Ab Non-reactive (NonReactive) 02/05/20 06:37 Hep Bs Antigen Non-reactive (Negative) 02/05/20 06:37 Hep B Core IgM Ab Non-reactive (NonReactive) 02/05/20 06:37 Hepatitis C Antibody Non-reactive (NonReactive) 02/05/20 06:37 Blood Type O POSITIVE 01/21/20 13:00 Antibody Screen Negative 01/21/20 13:00 - Diagnostic Impressions Diagnostic Impressions: Echocardiogram 11/29/19 07:37 Transthoracic Echocardiogram Indication: CHF BP: 116/72 HR: 33 Conclusions *The study is technically limited due to poor acoustic windows. *Global left ventricular systolic function is normal. *The estimated ejection fraction is 50-55%. *Mild concentric left ventricular hypertrophy is observed. *There is trace of mitral regurgitation. *There is mild tricuspid regurgitation. Findings Procedure Info: The study quality is poor. The study is technically limited due to poor acoustic windows. The study is technically limited due to patient body habitus. Left Ventricle: The left ventricular chamber size is normal. Mild concentric left ventricular hypertrophy is observed. Global left ventricular systolic function is normal. The estimated ejection fraction is 50-55%. Left Atrium: The left atrial chamber size is normal. Right Ventricle: The right ventricular cavity size is normal. Right Atrium: The right atrial cavity size is normal. Aortic Valve: The aortic valve leaflets are moderately thickened. There is trace of aortic regurgitation. There is no evidence of aortic stenosis. Mitral Valve: The mitral valve leaflets are mildly thickened. There is trace of mitral regurgitation. There is no evidence of mitral stenosis. Tricuspid Valve: There is mild tricuspid regurgitation. No pulmonary hypertension is noted. Pulmonic Valve: There is trace pulmonic regurgitation. Pericardium: There is no pericardial effusion. Aorta: There is no dilatation of the aortic root. Venous: The inferior vena cava appears normal in size. Contrast: Definity was used to optimize study. Intravenous contrast was used to enhance endocardial border definition. Measurements Chambers 2D Name Value Normal Range Ao root diameter (2D) 3.4 cm (2 - 3.7) Aortic Valve Name Value Normal Range AV Vmax 0.98 m/sec - AV VTI 16.76 cm - AV peak gradient 3.83 mmHg - AV mean gradient 2.57 mmHg - LVOT diameter 3.11 cm - LVOT Vmax 0.68 m/sec - LVOT VTI 11.52 cm - LVOT peak gradient 1.84 mmHg - LVOT mean gradient 1.27 mmHg - SV LVOT 87.31 ml - MALOU (continuity Vmax) 5.24 cm2 - MALOU (continuity VTI) 5.21 cm2 - Tricuspid Valve Name Value Normal Range IVC diameter 2.24 cm (1.2 - 2.3) Hoffman/IV: Voiding Method Indwelling Catheter IV Catheter Type [Left INT / Saline Lock Antecubital] IV Catheter Type [Right INT / Saline Lock Forearm] IV Catheter Type [Right Hand] Peripheral IV IV Catheter Type [Right Upper INT / Saline Lock arm] IV Catheter Type [Left Upper Mid-line arm] IV Catheter Type [Left Forearm Peripheral IV ] IV Catheter Type [Left Hand] INT / Saline Lock IV Catheter Type [Left Wrist] INT / Saline Lock IV Catheter Type [Right Peripheral IV Antecubital] Active Medications - Current Medications Current Medications: Generic Name Dose Route Start Last Admin Trade Name Freq PRN Reason Stop Dose Admin Acetaminophen 650 mg 03/12/20 04:29 03/14/20 13:49 Acetaminophen 325 Mg/10.15 Ml Oral Liqd Unit Dose FEEDTUBE 650 mg Q6H PRN Administration Pain, Mild (1-3) Lipase/Protease/Amylase 1 each 01/09/20 12:01 03/07/20 12:56 Lipase 10,500/Protease 25,000/Amylase 43,750 (Units) Dr Lauren FEEDTUBE 1 each PRN PRN Administration For Clogged Feeding Tube Apixaban 5 mg 01/22/20 22:00 03/16/20 21:27 Eliquis PO 5 mg Q12HR CAR Administration Protocol Atorvastatin Calcium 40 mg 01/20/20 22:00 03/16/20 21:27 Lipitor PO 40 mg QHS CAR Administration Clopidogrel Bisulfate 75 mg 01/21/20 06:00 03/16/20 09:31 Plavix PO 75 mg QDAY CAR Administration Dextrose 50 ml 01/31/20 18:51 02/05/20 00:56 D50w (25gm) Syringe IV 50 ml Q30MIN PRN Administration Hypoglycemia Protocol Digoxin 0.125 mg 02/25/20 17:00 03/16/20 18:02 Lanoxin PO 0.125 mg DAILY@1700 CAR Administration Docusate Sodium 100 mg 02/22/20 10:00 03/16/20 21:26 Colace FEEDTUBE 100 mg BID CAR Administration Glycopyrrolate 2 mg 02/24/20 21:00 03/16/20 20:23 Glycopyrrolate PO 2 mg TID CAR Administration Haloperidol Lactate 5 mg 02/10/20 14:20 03/03/20 02:25 Haloperidol Lactate 5 Mg/1 Ml Inj IV 5 mg Q6H PRN Administration Agitation Hydrophilic Ointment 1 applic 01/17/20 15:26 02/24/20 23:20 Lip Therapy Vaseline TP 1 applic DIRECT PRN Administration Dry Lips Insulin Human Regular 0 unit 02/01/20 18:00 03/17/20 05:55 Humulin R SUB-Q 1 unit Q6H CAR Administration Protocol Lansoprazole 30 mg 02/05/20 16:00 03/16/20 09:30 Lansoprazole 30 Mg Solutab FEEDTUBE 30 mg QDAY CAR Administration Metoprolol Tartrate 5 mg 01/11/20 08:00 03/03/20 01:46 Metoprolol Tartrate 5 Mg/5 Ml Inj IV 5 mg Q6H PRN Administration SEE INSTRUCTIONS Metoprolol Tartrate 12.5 mg 02/28/20 12:00 03/16/20 21:28 Metoprolol FEEDTUBE 12.5 mg BID CAR Administration Midodrine 15 mg 02/04/20 16:00 03/16/20 18:05 Midodrine 5 Mg Tab PO 15 mg TID@0800,1200,1600 CAR Administration Morphine Sulfate 2 mg 01/06/20 15:41 03/11/20 10:42 Morphine 2 Mg/1 Ml Inj IV 2 mg Q4H PRN Administration Pain, Moderate (4-6) Multi-Ingred Cream/Lotion/Oil/Oint 1 applic 02/01/20 15:52 Artificial Tears Ophth Oint OU Q4HR PRN Dry Eye(s) Nitroglycerin 0.4 mg 01/19/20 21:09 01/20/20 03:03 Nitrostat SL 0.4 mg .Q5MIN PRN Administration Chest Pain Ondansetron HCl 4 mg 01/05/20 14:37 03/14/20 13:43 Ondansetron 4 Mg/2 Ml Inj IV 4 mg Q8H PRN Administration Nausea And Vomiting Polyethylene Glycol 17 gm 12/04/19 22:00 03/16/20 21:28 Miralax 3350 PO 17 gm QHS CAR Administration Quetiapine Fumarate 300 mg 01/13/20 22:00 03/16/20 21:28 Quetiapine 100 Mg Tab PO 300 mg BID CAR Administration Simple Syrup 15 ml 01/09/20 12:01 Simple Syrup 15 Ml FEEDTUBE PRN PRN Hypoglycemia Simple Syrup 30 ml 01/09/20 12:01 Simple Syrup 15 Ml FEEDTUBE PRN PRN Hypoglycemia Sodium Bicarbonate 325 mg 01/09/20 12:01 03/07/20 12:56 Sodium Bicarbonate 325 Mg Tab FEEDTUBE 325 mg PRN PRN Administration For Clogged Feeding Tube Sodium Chloride 10 ml 11/24/19 10:00 03/16/20 21:29 Sodium Chloride Flush Syringe 10 Ml IV 10 ml BID CAR Administration Tamsulosin HCl 0.8 mg 12/20/19 22:00 03/16/20 21:27 Flomax PO 0.8 mg QHS CAR Administration Nutrition/Malnutrition Assess - Dietary Evaluation Nutrition/Malnutrition Findings: Nutrition Notes Start: 11/24/19 12: 22 Freq: Status: Active Protocol: Document 03/15/20 12:10 AB (Rec: 03/15/20 12:14 AB [id number]) Co-Sign 03/15/20 12:10 LP Nutrition Notes Initial or Follow up Reassessment Current Diagnosis Coronary Artery Disease,Heart Failure,Respiratory Failure, Stroke,Hyperlipidemia Other Pertinent Diagnosis pneumonia Current Diet Osmolite 1.5 at 65ml/hr Labs/Tests Cr 0.5 BG 130 Pertinent Medications Reviewed Height 6 ft 2 in Weight 123.2 kg Jackpot Body Weight (kg) 86.36 BMI 34.8 Weight Status Obese Subjective/Other Information F/U for TF rate/tolerance. Per RN, pt TF is running at goal and tolerating it. Per RN, pt does not have any N/V. Percent of energy/protein needs met: 100%/57% Burn Absent Trauma Absent GI Symptoms None Current % PO Negligible Minimum of two criteria Yes Muscle Mass Mild Depletion (non-severe) Fluid Accumulation Mild (non-severe) Reduced Access Developer Strength Measurably Reduced (severe) #2 Nutrition Diagnosis Malnutrition Diagnosis Progress(for reassessment Continues documentation) #1 Nutrition Diagnosis Inadequate oral intake Diagnosis Progress(for reassessment Continues documentation) Is patient on ventilator? Yes Is Patient Ambulatory and/or Out of Bed No REE-([facility]-confined to bed) 2520.672 Kcal/Kg value to use for calculation 17 Approximate Energy Requirements Using 2094 kcal/Kg Calculation Used for Recommendations Kcal/kg Additional Notes Protein needs are 173g ( greater than 2g/kg IBW) Fluid needs are 1 ml/kcal Nutrition Intervention Change Diet Order: Continue TF via PEG Nutrition Support: Osmolite 1.5 at 65 ml/hr. Flush 200 ml q4h. Kcal 2,340 Protein (gm) 98 Fluid (mL) 1,189 Goal #1 Meet at least 75% of pt's energy and protein needs via TF Goal #2 Weight maintenance Anticipated Discharge Needs: unable to determine at this time Follow-Up By: 03/17/20 Additional Comments F/U for TF tolerance
[2020-03-17] MEDS: DOCUSATE SODIUM 100 MG/10 ML ORAL LIQD FEEDTUBE SCH ×3 (10:04→21:10)
[2020-03-17] MEDS: ACETAMINOPHEN 325 MG/10.15 ML ORAL LIQD UNIT DOSE FEEDTUBE PRN ×2 (10:04→19:41)
[2020-03-17] MEDS: QUEtiapine 100 MG TAB PO SCH ×3 (10:04→21:10)
[2020-03-17] MEDS: METOPROLOL TARTRATE 25 MG TAB FEEDTUBE SCH ×3 (10:05→21:08)
[2020-03-17] MEDS: APIXABAN 5 MG TAB PO SCH ×3 (10:05→21:07)
[2020-03-17] MEDS: CLOPIDOGREL 75 MG TAB PO SCH (10:05)
[2020-03-17] MEDS: LANSOPRAZOLE 30 MG SOLUTAB FEEDTUBE SCH (10:06)
[2020-03-17] MEDS: MIDODRINE 5 MG TAB PO SCH ×3 (10:06→16:48)
--- NOTE | 2020-03-17 10:46 | Progress Note ---
Assessment and Plan - Patient Problems (1) Paroxysmal atrial fibrillation Current Visit: Yes Status: Acute Plan to address problem: Continue current management of atrial fibrillation on a rate control strategy and oral anticoagulation, stable cardiac status. Subjective Date of service: 03/17/20 Principal diagnosis: Ac hypoxemic resp failure; Pneumonia; PUI COVID-19; CHF; COPD; HTN Interval history: Patient is comfortable in no acute distress, telemetry shows atrial fibrillation with ventricular rate of 115. Objective Vital Signs Temp Pulse Pulse Resp BP Pulse Ox Pulse Ox 03/17/20 10:05 126 H 110/81 03/17/20 08:01 108 H 21 96/71 96 03/17/20 08:00 97.9 F 03/17/20 07:25 110 H 96/71 97 97 03/17/20 07:01 114 H 20 119/99 98 03/17/20 06:10 110 H 119/99 96 03/17/20 06:01 121 H 19 109/71 93 03/17/20 05:01 128 H 22 109/71 94 03/17/20 04:01 129 H 23 111/70 93 03/17/20 04:00 97.7 F 121 H 121 H 18 93 03/17/20 03:01 133 H 25 H 111/79 95 03/17/20 02:00 131 H 20 111/79 96 03/17/20 01:01 131 H 27 H 111/83 94 03/17/20 00:11 127 H 111/83 97 03/17/20 00:01 117 H 27 H 111/83 96 03/17/20 00:00 97.7 F 133 H 133 H 27 H 95 03/16/20 23:01 119 H 19 99/67 03/16/20 22:26 97 03/16/20 22:00 128 H 20 100/78 95 03/16/20 21:28 129 H 117/75 03/16/20 21:18 132 H 19 117/75 96 03/16/20 21:01 121 H 21 117/75 94 03/16/20 20:50 120 H 106/73 98 03/16/20 20:01 133 H 26 H 74/57 96 03/16/20 20:00 98.2 F 134 H 134 H 22 98 03/16/20 19:00 129 H 22 97/69 98 03/16/20 18:02 126 H 97/69 03/16/20 18:01 106 H 21 97/69 99 03/16/20 17:01 123 H 20 109/70 99 03/16/20 16:51 97.9 F 03/16/20 16:01 123 H 20 109/88 95 03/16/20 16:00 132 H 17 100 03/16/20 15:41 99 03/16/20 15:35 106 H 108/78 99 03/16/20 15:01 114 H 26 H 100/73 03/16/20 14:01 115 H 21 100/73 98 03/16/20 13:01 111 H 19 98/71 99 03/16/20 12:05 121 H 88/64 98 03/16/20 12:01 127 H 21 88/64 97 03/16/20 12:00 128 H 17 100 03/16/20 11:44 97.6 F 03/16/20 11:01 120 H 17 101/70 96 - Physical Examination General: Other (s/p trach) HEENT: Positive: PERRL Neck: Positive: neck supple, Other (s/p trach) Cardiac: Positive: irregularly irregular Lungs: Positive: Decreased Breath Sounds Neuro: Positive: Weakness Abdomen: Positive: Soft Skin: Positive: Clear Extremities: Absent: edema - Allied health notes Allied health notes reviewed: RT
[2020-03-17] MEDS: GLYCOPYRROLATE 2 MG TAB PO SCH ×3 (11:11→19:42)
[2020-03-17] MEDS: DIGOXIN 0.125 MG TAB PO SCH (16:48)
[2020-03-17] MEDS: METOPROLOL TARTRATE 5 MG/5 ML INJ IV PRN (18:20)
[2020-03-17] MEDS: HALOPERIDOL LACTATE 5 MG/1 ML INJ IV PRN (19:42)
[2020-03-17] MEDS: MORPHINE 2 MG/1 ML INJ IV PRN ×2 (20:12→23:58)
[2020-03-17] MEDS: TAMSULOSIN 0.4 MG CAP PO SCH ×2 (20:32→21:08)
[2020-03-17] MEDS: POLYETHYLENE GLYCOL 3350 17 GM POWDER PO SCH ×2 (20:33→21:08)
--- NOTE | 2020-03-17 23:32 | Progress Note ---
Assessment and Plan Patient sleeping at this time.. Resting on assist control mechanical ventilation, rate 12 , Tidal volume 450, FIO2 30%, PEEP 6 and O2 saturation running 97%. No change in patients general condition . ABG FIO2 30%. ABG pH 7.454 (7.320-7.450) H 03/12/20 04:45 POC ABG pCO2 45.6 mmHg (32.0-48.0) 03/12/20 04:45 ABG pCO2 47.8 mm Hg 02/20/20 06:45 POC ABG pO2 69.2 mmHg (83-108) L 03/12/20 04:45 ABG pO2 88.7 mm Hg (80.0-90.0) 02/20/20 06:45 POC ABG HCO3 31.3 03/12/20 04:45 ABG O2 Saturation 97.2 % (95.0-99.0) 02/20/20 06:45 Recommend spontaneous breathing trials. Patient afebrile. No leukocytosis. Chest xray done 03/10/20reported Mild CHF. Patient is on Apixaban and prevacid. I spent critical care time of 33 minutes on this patient review the chart, obtain history , examining the patient, review chest xray, labs, talking to the nursing staff and respiratory therapy and work out plan of treatment un this critically ill patient. - Patient Problems (1) Acute respiratory failure Current Visit: Yes Status: Acute Plan to address problem: Patient is on mechanical ventilation assist control , rate 12, Tidal volume 450, FIO2 30%, PEEP 6. Albuterol/atrovent aerosol treatments. Continue apixaban Continue prevacid. Recommend spontaneous breathing trials. (2) COPD exacerbation Current Visit: No Status: Acute Plan to address problem: Patient is on mechanical ventilation assist control , rate 12, Tidal volume 450, FIO2 30%, PEEP 6. Albuterol/atrovent aerosol treatments. Continue apixaban Continue prevacid. Recommend spontaneous breathing trials. (3) Bilateral pneumonia Current Visit: Yes Status: Acute Plan to address problem: Chest xray 03/10/20 reported CHF Patient afebrile. No leukocytosis. (4) CHF exacerbation Current Visit: Yes Status: Acute Plan to address problem: Management as per cardiology. (5) Cardiomyopathy Current Visit: Yes Status: Acute Plan to address problem: Management as per cardiology. (6) Pancreatic lesion Current Visit: Yes Status: Acute Plan to address problem: Management as per primary care. (7) Paroxysmal atrial fibrillation Current Visit: Yes Status: Acute Plan to address problem: Patient is on apixaban. Management as per cardiology. (8) CVA (cerebral vascular accident) Current Visit: No Status: Acute Qualifiers: Precerebral and cerebral artery: middle cerebral artery Laterality of affected vessel: right Plan to address problem: Management as per primary care. (9) Cocaine dependence Current Visit: No Status: Acute Plan to address problem: Management as per primary care. (10) HTN (hypertension) Current Visit: No Status: Acute Qualifiers: Hypertension type: essential hypertension Qualified Code(s): I10 - Essential (primary) hypertension Plan to address problem: Management as per primary care. (11) Nicotine dependence Current Visit: No Status: Acute Qualifiers: Nicotine product type: cigarettes Substance use status: in withdrawal Qualified Code(s): F17.213 - Nicotine dependence, cigarettes, with withdrawal Plan to address problem: Counseled to stop smoking. (12) Obesity hypoventilation syndrome Current Visit: No Status: Acute Plan to address problem: Patient S/P tracheostomy and on mechanical ventilation. Subjective Date of service: 03/17/20 Principal diagnosis: Ac hypoxemic resp failure; Pneumonia; PUI COVID-19; CHF; COPD; HTN Interval history: Patient sleeping at this time.. Resting on assist control mechanical ventilation, rate 12 , Tidal volume 450, FIO2 30%, PEEP 6 and O2 saturation running 97%. No change in patients general condition . ABG FIO2 30%. ABG pH 7.454 (7.320-7.450) H 03/12/20 04:45 POC ABG pCO2 45.6 mmHg (32.0-48.0) 03/12/20 04:45 ABG pCO2 47.8 mm Hg 02/20/20 06:45 POC ABG pO2 69.2 mmHg (83-108) L 03/12/20 04:45 ABG pO2 88.7 mm Hg (80.0-90.0) 02/20/20 06:45 POC ABG HCO3 31.3 03/12/20 04:45 ABG O2 Saturation 97.2 % (95.0-99.0) 02/20/20 06:45 Recommend spontaneous breathing trials. Patient afebrile. No leukocytosis. Chest xray done 12/17/20reported Mild CHF. Patient is on Apixaban and prevacid. Objective Vital Signs - 12hr 03/17/20 03/17/20 03/17/20 11:47 12:00 12:01 Temperature 97.9 F Pulse Rate 122 H 118 H Respiratory 28 H 21 Rate Blood Pressure 99/72 101/71 O2 Sat by Pulse 97 96 Oximetry O2 Sat by Pulse Oximetry [ Assessment] 03/17/20 03/17/20 03/17/20 13:01 14:00 15:01 Temperature Pulse Rate 120 H 126 H 131 H Respiratory 19 21 22 Rate Blood Pressure 99/69 99/69 103/65 O2 Sat by Pulse 97 93 Oximetry O2 Sat by Pulse Oximetry [ Assessment] 03/17/20 03/17/20 03/17/20 16:00 16:01 16:48 Temperature 98.3 F Pulse Rate 120 H 159 H 130 H Respiratory 20 27 H Rate Blood Pressure 119/71 119/71 96/73 O2 Sat by Pulse 97 Oximetry O2 Sat by Pulse 97 Oximetry [ Assessment] 03/17/20 03/17/20 03/17/20 17:01 18:01 18:20 Temperature Pulse Rate 140 H 151 H 156 H Respiratory 23 33 H Rate Blood Pressure 96/73 107/79 117/83 O2 Sat by Pulse 94 96 Oximetry O2 Sat by Pulse Oximetry [ Assessment] 03/17/20 03/17/20 03/17/20 19:00 19:41 20:00 Temperature 97.9 F Pulse Rate 121 H Respiratory 28 H 20 Rate Blood Pressure 117/83 O2 Sat by Pulse 99 Oximetry O2 Sat by Pulse Oximetry [ Assessment] 03/17/20 03/17/20 03/17/20 20:01 20:10 20:12 Temperature Pulse Rate 132 H Respiratory 31 H 30 H 30 H Rate Blood Pressure 113/90 O2 Sat by Pulse 96 Oximetry O2 Sat by Pulse Oximetry [ Assessment] 03/17/20 03/17/20 03/17/20 20:32 20:42 20:45 Temperature Pulse Rate 146 H 142 H Respiratory 24 Rate Blood Pressure 116/97 121/90 O2 Sat by Pulse 97 Oximetry O2 Sat by Pulse Oximetry [ Assessment] 03/17/20 21:13 Temperature Pulse Rate Respiratory Rate Blood Pressure O2 Sat by Pulse 97 Oximetry O2 Sat by Pulse Oximetry [ Assessment] Constitutional: no acute distress, asleep Eyes: non-icteric ENT: oropharynx moist, other (+ midline tracheostomy) Neck: supple, no JVD Effort: mildly labored Ascultation: Bilateral: diminished breath sounds, rhonchi, other (tracheal secretions ) Percussion: Bilateral: not dull Cardiovascular: irregular rhythm Gastrointestinal: normoactive bowel sounds, soft, non-tender, non-distended (protuberant), other (protuberant; PEG in place) Integumentary: normal Extremities: no cyanosis, pulses normal, no ischemia or petechiae, edema (bilateral lower) Neurologic: non-focal exam (moves extremities), pupils equal and round, other (intermittent agitation) Psychiatric: other (Sleeping.) CBC and BMP: 03/15/20 04:05 03/15/20 04:05 ABG, PT/INR, D-dimer: ABG ABG pH 7.454 (7.320-7.450) H 03/12/20 04:45 POC ABG pCO2 45.6 mmHg (32.0-48.0) 03/12/20 04:45 ABG pCO2 47.8 mm Hg 02/20/20 06:45 POC ABG pO2 69.2 mmHg (83-108) L 03/12/20 04:45 ABG pO2 88.7 mm Hg (80.0-90.0) 02/20/20 06:45 POC ABG HCO3 31.3 03/12/20 04:45 ABG O2 Saturation 97.2 % (95.0-99.0) 02/20/20 06:45 PT/INR, D-dimer PT 27.0 Sec. (12.2-14.9) H 02/07/20 15:03 INR 2.46 (0.87-1.13) H 02/07/20 15:03 Abnormal lab findings: Abnormal Labs 11/24/19 11/24/19 11/24/19 02:53 02:53 03:45 WBC 14.3 H RBC Hgb Hct MCHC RDW 17.2 H MCV MCH Lymph % (Auto) [place] % (Auto) [place] # Eos # Lymph # (Auto) [place] # (Auto) Eos # (Auto) Seg Neutrophils % Seg Neuts % (Manual) Baso # (Auto) Lymphocytes % (Manual) Monocytes % (Manual) Eosinophils % (Manual) Basophils % (Manual) Seg Neutrophils # Seg Neutrophils # Man 8.3 H Lymphocytes # (Manual) Monocytes # (Manual) 0.9 H Eosinophils # (Manual) Nucleated RBC % Basophils # (Manual) PT INR APTT Heparin Anti-Xa Level ABG pH 7.313 L POC ABG pO2 ABG pO2 102.8 H ABG HCO3 ABG O2 Saturation ABG Base Excess -2.9 L POC ABG pCO2 ABG Hemoglobin ABG Oxyhemoglobin ABG Sodium ABG Chloride ABG Glucose Oxyhemoglobin 93.9 L Sodium Potassium Chloride Carbon Dioxide BUN Creatinine Glucose 195 H POC Glucose Lactic Acid Calcium Phosphorus Magnesium AST ALT Lactate Dehydrogenase Total Bilirubin Direct Bilirubin CK-MB (CK-2) 4.3 H C-Reactive Protein NT-Pro-B Natriuret Pep 1181 H Total Protein Albumin Arterial Blood Glucose Urine WBC (Auto) Urine Creatinine 11/24/19 11/24/19 11/24/19 04:53 04:53 10:37 WBC RBC Hgb Hct MCHC RDW MCV MCH Lymph % (Auto) [place] % (Auto) [place] # Eos # Lymph # (Auto) [place] # (Auto) Eos # (Auto) Seg Neutrophils % Seg Neuts % (Manual) Baso # (Auto) Lymphocytes % (Manual) Monocytes % (Manual) Eosinophils % (Manual) Basophils % (Manual) Seg Neutrophils # Seg Neutrophils # Man Lymphocytes # (Manual) Monocytes # (Manual) Eosinophils # (Manual) Nucleated RBC % Basophils # (Manual) PT INR APTT Heparin Anti-Xa Level ABG pH POC ABG pO2 ABG pO2 ABG HCO3 ABG O2 Saturation ABG Base Excess POC ABG pCO2 ABG Hemoglobin ABG Oxyhemoglobin ABG Sodium ABG Chloride ABG Glucose Oxyhemoglobin Sodium Potassium Chloride Carbon Dioxide BUN Creatinine Glucose 162 H POC Glucose Lactic Acid 2.40 H* 2.50 H* Calcium Phosphorus Magnesium AST ALT Lactate Dehydrogenase 240 H Total Bilirubin Direct Bilirubin CK-MB (CK-2) C-Reactive Protein NT-Pro-B Natriuret Pep Total Protein Albumin Arterial Blood Glucose Urine WBC (Auto) Urine Creatinine 11/24/19 11/24/19 11/24/19 12:21 14:50 19:54 WBC RBC Hgb Hct MCHC RDW MCV MCH Lymph % (Auto) [place] % (Auto) [place] # Eos # Lymph # (Auto) [place] # (Auto) Eos # (Auto) Seg Neutrophils % Seg Neuts % (Manual) Baso # (Auto) Lymphocytes % (Manual) Monocytes % (Manual) Eosinophils % (Manual) Basophils % (Manual) Seg Neutrophils # Seg Neutrophils # Man Lymphocytes # (Manual) Monocytes # (Manual) Eosinophils # (Manual) Nucleated RBC % Basophils # (Manual) PT INR APTT Heparin Anti-Xa Level ABG pH POC ABG pO2 ABG pO2 ABG HCO3 ABG O2 Saturation ABG Base Excess POC ABG pCO2 ABG Hemoglobin ABG Oxyhemoglobin ABG Sodium ABG Chloride ABG Glucose Oxyhemoglobin Sodium Potassium Chloride Carbon Dioxide BUN Creatinine Glucose POC Glucose 145 H 143 H 124 H Lactic Acid Calcium Phosphorus Magnesium AST ALT Lactate Dehydrogenase Total Bilirubin Direct Bilirubin CK-MB (CK-2) C-Reactive Protein NT-Pro-B Natriuret Pep Total Protein Albumin Arterial Blood Glucose Urine WBC (Auto) Urine Creatinine 11/25/19 11/25/19 11/25/19 00:18 03:18 05:11 WBC 13.7 H RBC Hgb Hct MCHC RDW 17.1 H MCV MCH Lymph % (Auto) 10.8 L [place] % (Auto) 8.7 H [place] # 1.2 H Eos # Lymph # (Auto) [place] # (Auto) Eos # (Auto) Seg Neutrophils % 80.2 H Seg Neuts % (Manual) Baso # (Auto) Lymphocytes % (Manual) Monocytes % (Manual) Eosinophils % (Manual) Basophils % (Manual) Seg Neutrophils # 11.0 H Seg Neutrophils # Man Lymphocytes # (Manual) Monocytes # (Manual) Eosinophils # (Manual) Nucleated RBC % Basophils # (Manual) PT INR APTT Heparin Anti-Xa Level ABG pH 7.333 L POC ABG pO2 ABG pO2 61.2 L ABG HCO3 ABG O2 Saturation 90.2 L ABG Base Excess POC ABG pCO2 ABG Hemoglobin 13.7 L ABG Oxyhemoglobin ABG Sodium ABG Chloride ABG Glucose Oxyhemoglobin 88.2 L Sodium Potassium Chloride Carbon Dioxide BUN Creatinine Glucose POC Glucose 109 H Lactic Acid Calcium Phosphorus Magnesium AST ALT Lactate Dehydrogenase Total Bilirubin Direct Bilirubin CK-MB (CK-2) C-Reactive Protein NT-Pro-B Natriuret Pep Total Protein Albumin Arterial Blood Glucose Urine WBC (Auto) Urine Creatinine 11/25/19 11/25/19 11/26/19 05:11 11:40 03:12 WBC RBC Hgb Hct MCHC RDW MCV MCH Lymph % (Auto) [place] % (Auto) [place] # Eos # Lymph # (Auto) [place] # (Auto) Eos # (Auto) Seg Neutrophils % Seg Neuts % (Manual) Baso # (Auto) Lymphocytes % (Manual) Monocytes % (Manual) Eosinophils % (Manual) Basophils % (Manual) Seg Neutrophils # Seg Neutrophils # Man Lymphocytes # (Manual) Monocytes # (Manual) Eosinophils # (Manual) Nucleated RBC % Basophils # (Manual) PT INR APTT Heparin Anti-Xa Level ABG pH POC ABG pO2 ABG pO2 155.1 H ABG HCO3 27.8 H ABG O2 Saturation ABG Base Excess POC ABG pCO2 ABG Hemoglobin 12.2 L ABG Oxyhemoglobin ABG Sodium ABG Chloride ABG Glucose Oxyhemoglobin Sodium Potassium Chloride Carbon Dioxide BUN 23 H Creatinine Glucose 110 H POC Glucose 108 H Lactic Acid Calcium Phosphorus Magnesium AST ALT Lactate Dehydrogenase Total Bilirubin Direct Bilirubin CK-MB (CK-2) C-Reactive Protein NT-Pro-B Natriuret Pep Total Protein Albumin Arterial Blood Glucose Urine WBC (Auto) Urine Creatinine 11/26/19 11/26/19 11/26/19 06:17 10:43 10:43 WBC 11.4 H RBC Hgb Hct MCHC RDW 17.1 H MCV MCH Lymph % (Auto) [place] % (Auto) [place] # Eos # Lymph # (Auto) [place] # (Auto) Eos # (Auto) Seg Neutrophils % Seg Neuts % (Manual) Baso # (Auto) Lymphocytes % (Manual) Monocytes % (Manual) Eosinophils % (Manual) Basophils % (Manual) Seg Neutrophils # Seg Neutrophils # Man Lymphocytes # (Manual) Monocytes # (Manual) Eosinophils # (Manual) Nucleated RBC % Basophils # (Manual) PT INR APTT Heparin Anti-Xa Level ABG pH POC ABG pO2 ABG pO2 ABG HCO3 ABG O2 Saturation ABG Base Excess POC ABG pCO2 ABG Hemoglobin ABG Oxyhemoglobin ABG Sodium ABG Chloride ABG Glucose Oxyhemoglobin Sodium Potassium Chloride Carbon Dioxide BUN 29 H Creatinine Glucose POC Glucose 107 H Lactic Acid Calcium Phosphorus Magnesium AST ALT Lactate Dehydrogenase Total Bilirubin Direct Bilirubin CK-MB (CK-2) C-Reactive Protein NT-Pro-B Natriuret Pep Total Protein Albumin Arterial Blood Glucose Urine WBC (Auto) Urine Creatinine 11/26/19 11/27/19 11/27/19 17:11 01:53 04:11 WBC RBC Hgb Hct MCHC RDW MCV MCH Lymph % (Auto) [place] % (Auto) [place] # Eos # Lymph # (Auto) [place] # (Auto) Eos # (Auto) Seg Neutrophils % Seg Neuts % (Manual) Baso # (Auto) Lymphocytes % (Manual) Monocytes % (Manual) Eosinophils % (Manual) Basophils % (Manual) Seg Neutrophils # Seg Neutrophils # Man Lymphocytes # (Manual) Monocytes # (Manual) Eosinophils # (Manual) Nucleated RBC % Basophils # (Manual) PT INR APTT Heparin Anti-Xa Level ABG pH POC ABG pO2 ABG pO2 ABG HCO3 29.2 H ABG O2 Saturation ABG Base Excess 3.4 H POC ABG pCO2 ABG Hemoglobin 13.3 L ABG Oxyhemoglobin ABG Sodium ABG Chloride ABG Glucose Oxyhemoglobin 94.5 L Sodium Potassium Chloride Carbon Dioxide BUN Creatinine Glucose POC Glucose 113 H 108 H Lactic Acid Calcium Phosphorus Magnesium AST ALT Lactate Dehydrogenase Total Bilirubin Direct Bilirubin CK-MB (CK-2) C-Reactive Protein NT-Pro-B Natriuret Pep Total Protein Albumin Arterial Blood Glucose Urine WBC (Auto) Urine Creatinine 11/27/19 11/28/19 11/28/19 05:27 05:00 05:25 WBC RBC Hgb Hct MCHC RDW MCV MCH Lymph % (Auto) [place] % (Auto) [place] # Eos # Lymph # (Auto) [place] # (Auto) Eos # (Auto) Seg Neutrophils % Seg Neuts % (Manual) Baso # (Auto) Lymphocytes % (Manual) Monocytes % (Manual) Eosinophils % (Manual) Basophils % (Manual) Seg Neutrophils # Seg Neutrophils # Man Lymphocytes # (Manual) Monocytes # (Manual) Eosinophils # (Manual) Nucleated RBC % Basophils # (Manual) PT INR APTT Heparin Anti-Xa Level ABG pH POC ABG pO2 68.1 L ABG pO2 ABG HCO3 ABG O2 Saturation ABG Base Excess POC ABG pCO2 ABG Hemoglobin ABG Oxyhemoglobin 91.2 L ABG Sodium ABG Chloride ABG Glucose Oxyhemoglobin Sodium Potassium Chloride Carbon Dioxide BUN Creatinine Glucose POC Glucose 111 H 110 H Lactic Acid Calcium Phosphorus Magnesium AST ALT Lactate Dehydrogenase Total Bilirubin Direct Bilirubin CK-MB (CK-2) C-Reactive Protein NT-Pro-B Natriuret Pep Total Protein Albumin Arterial Blood Glucose Urine WBC (Auto) Urine Creatinine 11/28/19 11/28/19 11/28/19 12:08 13:47 13:47 WBC 11.3 H RBC Hgb Hct MCHC RDW 16.1 H MCV MCH Lymph % (Auto) [place] % (Auto) 9.9 H [place] # 1.1 H Eos # Lymph # (Auto) [place] # (Auto) Eos # (Auto) Seg Neutrophils % 71.4 H Seg Neuts % (Manual) Baso # (Auto) Lymphocytes % (Manual) Monocytes % (Manual) Eosinophils % (Manual) Basophils % (Manual) Seg Neutrophils # 8.1 H Seg Neutrophils # Man Lymphocytes # (Manual) Monocytes # (Manual) Eosinophils # (Manual) Nucleated RBC % Basophils # (Manual) PT INR APTT Heparin Anti-Xa Level ABG pH POC ABG pO2 ABG pO2 ABG HCO3 ABG O2 Saturation ABG Base Excess POC ABG pCO2 ABG Hemoglobin ABG Oxyhemoglobin ABG Sodium ABG Chloride ABG Glucose Oxyhemoglobin Sodium Potassium Chloride Carbon Dioxide BUN 23 H Creatinine Glucose 123 H POC Glucose 112 H Lactic Acid Calcium Phosphorus Magnesium AST ALT Lactate Dehydrogenase Total Bilirubin Direct Bilirubin CK-MB (CK-2) C-Reactive Protein NT-Pro-B Natriuret Pep Total Protein Albumin 3.7 L Arterial Blood Glucose Urine WBC (Auto) Urine Creatinine 11/28/19 11/29/19 11/29/19 17:26 03:55 17:04 WBC RBC Hgb Hct MCHC RDW MCV MCH Lymph % (Auto) [place] % (Auto) [place] # Eos # Lymph # (Auto) [place] # (Auto) Eos # (Auto) Seg Neutrophils % Seg Neuts % (Manual) Baso # (Auto) Lymphocytes % (Manual) Monocytes % (Manual) Eosinophils % (Manual) Basophils % (Manual) Seg Neutrophils # Seg Neutrophils # Man Lymphocytes # (Manual) Monocytes # (Manual) Eosinophils # (Manual) Nucleated RBC % Basophils # (Manual) PT INR APTT Heparin Anti-Xa Level ABG pH POC ABG pO2 ABG pO2 65.7 L ABG HCO3 28.3 H ABG O2 Saturation 93.9 L ABG Base Excess 3.6 H POC ABG pCO2 ABG Hemoglobin 13.3 L ABG Oxyhemoglobin ABG Sodium ABG Chloride ABG Glucose Oxyhemoglobin 91.5 L Sodium Potassium Chloride Carbon Dioxide BUN Creatinine Glucose POC Glucose 123 H 119 H Lactic Acid Calcium Phosphorus Magnesium AST ALT Lactate Dehydrogenase Total Bilirubin Direct Bilirubin CK-MB (CK-2) C-Reactive Protein NT-Pro-B Natriuret Pep Total Protein Albumin Arterial Blood Glucose Urine WBC (Auto) Urine Creatinine 11/30/19 11/30/19 11/30/19 04:17 04:17 04:56 WBC 13.4 H RBC Hgb Hct MCHC RDW 15.6 H MCV MCH Lymph % (Auto) [place] % (Auto) [place] # Eos # Lymph # (Auto) [place] # (Auto) Eos # (Auto) Seg Neutrophils % Seg Neuts % (Manual) Baso # (Auto) Lymphocytes % (Manual) Monocytes % (Manual) Eosinophils % (Manual) Basophils % (Manual) Seg Neutrophils # Seg Neutrophils # Man Lymphocytes # (Manual) Monocytes # (Manual) Eosinophils # (Manual) Nucleated RBC % Basophils # (Manual) PT INR APTT Heparin Anti-Xa Level ABG pH POC ABG pO2 ABG pO2 56.3 L ABG HCO3 29.3 H ABG O2 Saturation 91.5 L ABG Base Excess 4.7 H POC ABG pCO2 ABG Hemoglobin 12.1 L ABG Oxyhemoglobin ABG Sodium ABG Chloride ABG Glucose Oxyhemoglobin 89.2 L Sodium 147 H Potassium Chloride Carbon Dioxide BUN 30 H Creatinine Glucose 124 H POC Glucose Lactic Acid Calcium Phosphorus Magnesium AST ALT Lactate Dehydrogenase Total Bilirubin Direct Bilirubin CK-MB (CK-2) C-Reactive Protein NT-Pro-B Natriuret Pep Total Protein Albumin 3.8 L Arterial Blood Glucose Urine WBC (Auto) Urine Creatinine 11/30/19 11/30/19 11/30/19 05:51 11:54 18:17 WBC RBC Hgb Hct MCHC RDW MCV MCH Lymph % (Auto) [place] % (Auto) [place] # Eos # Lymph # (Auto) [place] # (Auto) Eos # (Auto) Seg Neutrophils % Seg Neuts % (Manual) Baso # (Auto) Lymphocytes % (Manual) Monocytes % (Manual) Eosinophils % (Manual) Basophils % (Manual) Seg Neutrophils # Seg Neutrophils # Man Lymphocytes # (Manual) Monocytes # (Manual) Eosinophils # (Manual) Nucleated RBC % Basophils # (Manual) PT INR APTT Heparin Anti-Xa Level ABG pH POC ABG pO2 ABG pO2 ABG HCO3 ABG O2 Saturation ABG Base Excess POC ABG pCO2 ABG Hemoglobin ABG Oxyhemoglobin ABG Sodium ABG Chloride ABG Glucose Oxyhemoglobin Sodium Potassium Chloride Carbon Dioxide BUN Creatinine Glucose POC Glucose 127 H 115 H 143 H Lactic Acid Calcium Phosphorus Magnesium AST ALT Lactate Dehydrogenase Total Bilirubin Direct Bilirubin CK-MB (CK-2) C-Reactive Protein NT-Pro-B Natriuret Pep Total Protein Albumin Arterial Blood Glucose Urine WBC (Auto) Urine Creatinine 12/01/19 12/01/19 12/01/19 01:18 05:22 12:16 WBC RBC Hgb Hct MCHC RDW MCV MCH Lymph % (Auto) [place] % (Auto) [place] # Eos # Lymph # (Auto) [place] # (Auto) Eos # (Auto) Seg Neutrophils % Seg Neuts % (Manual) Baso # (Auto) Lymphocytes % (Manual) Monocytes % (Manual) Eosinophils % (Manual) Basophils % (Manual) Seg Neutrophils # Seg Neutrophils # Man Lymphocytes # (Manual) Monocytes # (Manual) Eosinophils # (Manual) Nucleated RBC % Basophils # (Manual) PT INR APTT Heparin Anti-Xa Level ABG pH POC ABG pO2 ABG pO2 ABG HCO3 ABG O2 Saturation ABG Base Excess POC ABG pCO2 ABG Hemoglobin ABG Oxyhemoglobin ABG Sodium ABG Chloride ABG Glucose Oxyhemoglobin Sodium Potassium 3.5 L Chloride 107.8 H Carbon Dioxide BUN 37 H Creatinine Glucose 157 H POC Glucose 118 H 148 H Lactic Acid Calcium 8.2 L D Phosphorus Magnesium AST 48 H ALT 60 H Lactate Dehydrogenase 194 H Total Bilirubin Direct Bilirubin CK-MB (CK-2) C-Reactive Protein 8.50 H NT-Pro-B Natriuret Pep Total Protein 5.5 L Albumin 2.8 L Arterial Blood Glucose Urine WBC (Auto) Urine Creatinine 12/01/19 12/02/19 12/02/19 18:04 00:05 05:16 WBC 11.4 H RBC Hgb Hct MCHC RDW 15.9 H MCV MCH Lymph % (Auto) [place] % (Auto) 9.9 H [place] # 1.1 H Eos # Lymph # (Auto) [place] # (Auto) Eos # (Auto) Seg Neutrophils % 70.3 H Seg Neuts % (Manual) Baso # (Auto) Lymphocytes % (Manual) Monocytes % (Manual) Eosinophils % (Manual) Basophils % (Manual) Seg Neutrophils # 8.0 H Seg Neutrophils # Man Lymphocytes # (Manual) Monocytes # (Manual) Eosinophils # (Manual) Nucleated RBC % Basophils # (Manual) PT INR APTT Heparin Anti-Xa Level ABG pH POC ABG pO2 ABG pO2 ABG HCO3 ABG O2 Saturation ABG Base Excess POC ABG pCO2 ABG Hemoglobin ABG Oxyhemoglobin ABG Sodium ABG Chloride ABG Glucose Oxyhemoglobin Sodium Potassium Chloride Carbon Dioxide BUN Creatinine Glucose POC Glucose 143 H 107 H Lactic Acid Calcium Phosphorus Magnesium AST ALT Lactate Dehydrogenase Total Bilirubin Direct Bilirubin CK-MB (CK-2) C-Reactive Protein NT-Pro-B Natriuret Pep Total Protein Albumin Arterial Blood Glucose Urine WBC (Auto) Urine Creatinine 12/02/19 12/02/19 12/02/19 05:16 06:03 11:52 WBC RBC Hgb Hct MCHC RDW MCV MCH Lymph % (Auto) [place] % (Auto) [place] # Eos # Lymph # (Auto) [place] # (Auto) Eos # (Auto) Seg Neutrophils % Seg Neuts % (Manual) Baso # (Auto) Lymphocytes % (Manual) Monocytes % (Manual) Eosinophils % (Manual) Basophils % (Manual) Seg Neutrophils # Seg Neutrophils # Man Lymphocytes # (Manual) Monocytes # (Manual) Eosinophils # (Manual) Nucleated RBC % Basophils # (Manual) PT INR APTT Heparin Anti-Xa Level ABG pH POC ABG pO2 ABG pO2 ABG HCO3 ABG O2 Saturation ABG Base Excess POC ABG pCO2 ABG Hemoglobin ABG Oxyhemoglobin ABG Sodium ABG Chloride ABG Glucose Oxyhemoglobin Sodium 146 H Potassium Chloride Carbon Dioxide BUN 28 H Creatinine Glucose 123 H POC Glucose 110 H 152 H Lactic Acid Calcium Phosphorus Magnesium AST ALT Lactate Dehydrogenase Total Bilirubin Direct Bilirubin CK-MB (CK-2) C-Reactive Protein NT-Pro-B Natriuret Pep Total Protein Albumin Arterial Blood Glucose Urine WBC (Auto) Urine Creatinine 12/02/19 12/02/19 12/02/19 12:58 17:58 23:36 WBC RBC Hgb Hct MCHC RDW MCV MCH Lymph % (Auto) [place] % (Auto) [place] # Eos # Lymph # (Auto) [place] # (Auto) Eos # (Auto) Seg Neutrophils % Seg Neuts % (Manual) Baso # (Auto) Lymphocytes % (Manual) Monocytes % (Manual) Eosinophils % (Manual) Basophils % (Manual) Seg Neutrophils # Seg Neutrophils # Man Lymphocytes # (Manual) Monocytes # (Manual) Eosinophils # (Manual) Nucleated RBC % Basophils # (Manual) PT INR APTT Heparin Anti-Xa Level ABG pH POC ABG pO2 78.1 L ABG pO2 ABG HCO3 ABG O2 Saturation ABG Base Excess POC ABG pCO2 ABG Hemoglobin ABG Oxyhemoglobin ABG Sodium ABG Chloride ABG Glucose Oxyhemoglobin Sodium Potassium Chloride Carbon Dioxide BUN Creatinine Glucose POC Glucose 120 H 123 H Lactic Acid Calcium Phosphorus Magnesium AST ALT Lactate Dehydrogenase Total Bilirubin Direct Bilirubin CK-MB (CK-2) C-Reactive Protein NT-Pro-B Natriuret Pep Total Protein Albumin Arterial Blood Glucose Urine WBC (Auto) Urine Creatinine 12/03/19 12/03/19 12/03/19 06:03 06:14 11:46 WBC RBC Hgb Hct MCHC RDW MCV MCH Lymph % (Auto) [place] % (Auto) [place] # Eos # Lymph # (Auto) [place] # (Auto) Eos # (Auto) Seg Neutrophils % Seg Neuts % (Manual) Baso # (Auto) Lymphocytes % (Manual) Monocytes % (Manual) Eosinophils % (Manual) Basophils % (Manual) Seg Neutrophils # Seg Neutrophils # Man Lymphocytes # (Manual) Monocytes # (Manual) Eosinophils # (Manual) Nucleated RBC % Basophils # (Manual) PT INR APTT Heparin Anti-Xa Level ABG pH POC ABG pO2 ABG pO2 ABG HCO3 ABG O2 Saturation ABG Base Excess POC ABG pCO2 ABG Hemoglobin ABG Oxyhemoglobin ABG Sodium ABG Chloride ABG Glucose Oxyhemoglobin Sodium Potassium Chloride Carbon Dioxide BUN Creatinine Glucose POC Glucose 142 H 130 H Lactic Acid Calcium Phosphorus Magnesium AST ALT Lactate Dehydrogenase Total Bilirubin Direct Bilirubin CK-MB (CK-2) C-Reactive Protein NT-Pro-B Natriuret Pep Total Protein Albumin Arterial Blood Glucose Urine WBC (Auto) 8.0 H Urine Creatinine 12/03/19 12/03/19 12/04/19 15:50 17:39 00:04 WBC RBC Hgb Hct MCHC RDW MCV MCH Lymph % (Auto) [place] % (Auto) [place] # Eos # Lymph # (Auto) [place] # (Auto) Eos # (Auto) Seg Neutrophils % Seg Neuts % (Manual) Baso # (Auto) Lymphocytes % (Manual) Monocytes % (Manual) Eosinophils % (Manual) Basophils % (Manual) Seg Neutrophils # Seg Neutrophils # Man Lymphocytes # (Manual) Monocytes # (Manual) Eosinophils # (Manual) Nucleated RBC % Basophils # (Manual) PT INR APTT Heparin Anti-Xa Level ABG pH POC ABG pO2 ABG pO2 ABG HCO3 ABG O2 Saturation ABG Base Excess POC ABG pCO2 ABG Hemoglobin ABG Oxyhemoglobin ABG Sodium ABG Chloride ABG Glucose Oxyhemoglobin Sodium Potassium Chloride Carbon Dioxide BUN Creatinine Glucose POC Glucose 146 H 133 H Lactic Acid Calcium Phosphorus 2.40 L Magnesium AST ALT Lactate Dehydrogenase Total Bilirubin Direct Bilirubin CK-MB (CK-2) C-Reactive Protein NT-Pro-B Natriuret Pep Total Protein Albumin Arterial Blood Glucose Urine WBC (Auto) Urine Creatinine 12/04/19 12/04/19 12/04/19 03:58 03:58 05:22 WBC 12.5 H RBC Hgb 11.2 L Hct 35.2 L MCHC RDW 16.0 H MCV MCH Lymph % (Auto) [place] % (Auto) 9.6 H [place] # 1.2 H Eos # 0.5 H Lymph # (Auto) [place] # (Auto) Eos # (Auto) Seg Neutrophils % Seg Neuts % (Manual) Baso # (Auto) Lymphocytes % (Manual) Monocytes % (Manual) Eosinophils % (Manual) Basophils % (Manual) Seg Neutrophils # 8.6 H Seg Neutrophils # Man Lymphocytes # (Manual) Monocytes # (Manual) Eosinophils # (Manual) Nucleated RBC % Basophils # (Manual) PT INR APTT Heparin Anti-Xa Level ABG pH POC ABG pO2 ABG pO2 ABG HCO3 ABG O2 Saturation ABG Base Excess POC ABG pCO2 ABG Hemoglobin ABG Oxyhemoglobin ABG Sodium ABG Chloride ABG Glucose Oxyhemoglobin Sodium 146 H Potassium Chloride 108.6 H Carbon Dioxide BUN 30 H Creatinine 0.7 L Glucose 121 H POC Glucose 132 H Lactic Acid Calcium Phosphorus Magnesium AST ALT Lactate Dehydrogenase Total Bilirubin Direct Bilirubin CK-MB (CK-2) C-Reactive Protein NT-Pro-B Natriuret Pep Total Protein Albumin Arterial Blood Glucose Urine WBC (Auto) Urine Creatinine 12/04/19 12/04/19 12/05/19 13:26 18:43 00:19 WBC RBC Hgb Hct MCHC RDW MCV MCH Lymph % (Auto) [place] % (Auto) [place] # Eos # Lymph # (Auto) [place] # (Auto) Eos # (Auto) Seg Neutrophils % Seg Neuts % (Manual) Baso # (Auto) Lymphocytes % (Manual) Monocytes % (Manual) Eosinophils % (Manual) Basophils % (Manual) Seg Neutrophils # Seg Neutrophils # Man Lymphocytes # (Manual) Monocytes # (Manual) Eosinophils # (Manual) Nucleated RBC % Basophils # (Manual) PT INR APTT Heparin Anti-Xa Level ABG pH POC ABG pO2 ABG pO2 ABG HCO3 ABG O2 Saturation ABG Base Excess POC ABG pCO2 ABG Hemoglobin ABG Oxyhemoglobin ABG Sodium ABG Chloride ABG Glucose Oxyhemoglobin Sodium Potassium Chloride Carbon Dioxide BUN Creatinine Glucose POC Glucose 185 H 156 H 150 H Lactic Acid Calcium Phosphorus Magnesium AST ALT Lactate Dehydrogenase Total Bilirubin Direct Bilirubin CK-MB (CK-2) C-Reactive Protein NT-Pro-B Natriuret Pep Total Protein Albumin Arterial Blood Glucose Urine WBC (Auto) Urine Creatinine 12/05/19 12/05/19 12/05/19 03:37 03:37 05:14 WBC 16.3 H RBC Hgb 11.4 L Hct MCHC RDW 15.6 H MCV MCH Lymph % (Auto) 9.9 L [place] % (Auto) 9.7 H [place] # 1.6 H Eos # Lymph # (Auto) [place] # (Auto) Eos # (Auto) Seg Neutrophils % 78.0 H Seg Neuts % (Manual) Baso # (Auto) Lymphocytes % (Manual) Monocytes % (Manual) Eosinophils % (Manual) Basophils % (Manual) Seg Neutrophils # 12.7 H Seg Neutrophils # Man Lymphocytes # (Manual) Monocytes # (Manual) Eosinophils # (Manual) Nucleated RBC % Basophils # (Manual) PT INR APTT Heparin Anti-Xa Level ABG pH POC ABG pO2 ABG pO2 ABG HCO3 ABG O2 Saturation ABG Base Excess POC ABG pCO2 ABG Hemoglobin ABG Oxyhemoglobin ABG Sodium ABG Chloride ABG Glucose Oxyhemoglobin Sodium 146 H Potassium Chloride 107.2 H Carbon Dioxide BUN 27 H Creatinine 0.7 L Glucose 171 H POC Glucose 168 H Lactic Acid Calcium Phosphorus Magnesium AST ALT Lactate Dehydrogenase Total Bilirubin Direct Bilirubin CK-MB (CK-2) C-Reactive Protein NT-Pro-B Natriuret Pep Total Protein Albumin Arterial Blood Glucose Urine WBC (Auto) Urine Creatinine 12/05/19 12/05/19 12/05/19 12:31 18:10 23:58 WBC RBC Hgb Hct MCHC RDW MCV MCH Lymph % (Auto) [place] % (Auto) [place] # Eos # Lymph # (Auto) [place] # (Auto) Eos # (Auto) Seg Neutrophils % Seg Neuts % (Manual) Baso # (Auto) Lymphocytes % (Manual) Monocytes % (Manual) Eosinophils % (Manual) Basophils % (Manual) Seg Neutrophils # Seg Neutrophils # Man Lymphocytes # (Manual) Monocytes # (Manual) Eosinophils # (Manual) Nucleated RBC % Basophils # (Manual) PT INR APTT Heparin Anti-Xa Level ABG pH POC ABG pO2 ABG pO2 ABG HCO3 ABG O2 Saturation ABG Base Excess POC ABG pCO2 ABG Hemoglobin ABG Oxyhemoglobin ABG Sodium ABG Chloride ABG Glucose Oxyhemoglobin Sodium Potassium Chloride Carbon Dioxide BUN Creatinine Glucose POC Glucose 159 H 198 H 115 H Lactic Acid Calcium Phosphorus Magnesium AST ALT Lactate Dehydrogenase Total Bilirubin Direct Bilirubin CK-MB (CK-2) C-Reactive Protein NT-Pro-B Natriuret Pep Total Protein Albumin Arterial Blood Glucose Urine WBC (Auto) Urine Creatinine 12/06/19 12/06/19 12/06/19 05:24 05:24 05:25 WBC 14.9 H RBC Hgb 10.8 L Hct 34.0 L MCHC RDW 15.6 H MCV MCH Lymph % (Auto) 10.7 L [place] % (Auto) 8.3 H [place] # 1.2 H Eos # Lymph # (Auto) [place] # (Auto) Eos # (Auto) Seg Neutrophils % 78.7 H Seg Neuts % (Manual) Baso # (Auto) Lymphocytes % (Manual) Monocytes % (Manual) Eosinophils % (Manual) Basophils % (Manual) Seg Neutrophils # 11.7 H Seg Neutrophils # Man Lymphocytes # (Manual) Monocytes # (Manual) Eosinophils # (Manual) Nucleated RBC % Basophils # (Manual) PT INR APTT Heparin Anti-Xa Level ABG pH POC ABG pO2 ABG pO2 ABG HCO3 ABG O2 Saturation ABG Base Excess POC ABG pCO2 ABG Hemoglobin ABG Oxyhemoglobin ABG Sodium ABG Chloride ABG Glucose Oxyhemoglobin Sodium 148 H Potassium 5.1 H Chloride 107.6 H Carbon Dioxide BUN 27 H Creatinine 0.7 L Glucose 155 H POC Glucose 157 H Lactic Acid Calcium Phosphorus Magnesium AST ALT Lactate Dehydrogenase Total Bilirubin Direct Bilirubin CK-MB (CK-2) C-Reactive Protein NT-Pro-B Natriuret Pep Total Protein Albumin Arterial Blood Glucose Urine WBC (Auto) Urine Creatinine 12/07/19 12/07/19 12/07/19 00:13 05:34 11:33 WBC RBC Hgb Hct MCHC RDW MCV MCH Lymph % (Auto) [place] % (Auto) [place] # Eos # Lymph # (Auto) [place] # (Auto) Eos # (Auto) Seg Neutrophils % Seg Neuts % (Manual) Baso # (Auto) Lymphocytes % (Manual) Monocytes % (Manual) Eosinophils % (Manual) Basophils % (Manual) Seg Neutrophils # Seg Neutrophils # Man Lymphocytes # (Manual) Monocytes # (Manual) Eosinophils # (Manual) Nucleated RBC % Basophils # (Manual) PT INR APTT Heparin Anti-Xa Level ABG pH POC ABG pO2 ABG pO2 ABG HCO3 ABG O2 Saturation ABG Base Excess POC ABG pCO2 ABG Hemoglobin ABG Oxyhemoglobin ABG Sodium ABG Chloride ABG Glucose Oxyhemoglobin Sodium Potassium Chloride Carbon Dioxide BUN Creatinine Glucose POC Glucose 142 H 111 H 169 H Lactic Acid Calcium Phosphorus Magnesium AST ALT Lactate Dehydrogenase Total Bilirubin Direct Bilirubin CK-MB (CK-2) C-Reactive Protein NT-Pro-B Natriuret Pep Total Protein Albumin Arterial Blood Glucose Urine WBC (Auto) Urine Creatinine 12/07/19 12/07/19 12/07/19 12:41 13:25 18:19 WBC 12.4 H RBC 3.53 L Hgb 10.2 L Hct 32.1 L MCHC RDW 15.3 H MCV MCH Lymph % (Auto) 10.6 L [place] % (Auto) 7.8 H [place] # 1.0 H Eos # Lymph # (Auto) [place] # (Auto) Eos # (Auto) Seg Neutrophils % 77.6 H Seg Neuts % (Manual) Baso # (Auto) Lymphocytes % (Manual) Monocytes % (Manual) Eosinophils % (Manual) Basophils % (Manual) Seg Neutrophils # 9.6 H Seg Neutrophils # Man Lymphocytes # (Manual) Monocytes # (Manual) Eosinophils # (Manual) Nucleated RBC % Basophils # (Manual) PT INR APTT Heparin Anti-Xa Level ABG pH POC ABG pO2 ABG pO2 ABG HCO3 ABG O2 Saturation ABG Base Excess POC ABG pCO2 ABG Hemoglobin ABG Oxyhemoglobin ABG Sodium ABG Chloride ABG Glucose Oxyhemoglobin Sodium 149 H Potassium Chloride 108.4 H Carbon Dioxide BUN 26 H Creatinine 0.6 L Glucose 149 H POC Glucose 164 H Lactic Acid Calcium Phosphorus Magnesium 2.60 H AST 121 H ALT 145 H Lactate Dehydrogenase Total Bilirubin Direct Bilirubin CK-MB (CK-2) C-Reactive Protein NT-Pro-B Natriuret Pep Total Protein Albumin 2.6 L Arterial Blood Glucose Urine WBC (Auto) Urine Creatinine 12/07/19 12/08/19 12/08/19 22:25 00:02 03:55 WBC 13.3 H RBC 3.40 L Hgb 9.7 L Hct 30.8 L MCHC 31 L RDW 15.5 H MCV MCH Lymph % (Auto) [place] % (Auto) 8.1 H [place] # 1.1 H Eos # Lymph # (Auto) [place] # (Auto) Eos # (Auto) Seg Neutrophils % 73.0 H Seg Neuts % (Manual) Baso # (Auto) Lymphocytes % (Manual) Monocytes % (Manual) Eosinophils % (Manual) Basophils % (Manual) Seg Neutrophils # 9.7 H Seg Neutrophils # Man Lymphocytes # (Manual) Monocytes # (Manual) Eosinophils # (Manual) Nucleated RBC % Basophils # (Manual) PT INR APTT Heparin Anti-Xa Level 0.12 L ABG pH POC ABG pO2 ABG pO2 ABG HCO3 ABG O2 Saturation ABG Base Excess POC ABG pCO2 ABG Hemoglobin ABG Oxyhemoglobin ABG Sodium ABG Chloride ABG Glucose Oxyhemoglobin Sodium Potassium Chloride Carbon Dioxide BUN Creatinine Glucose POC Glucose 151 H Lactic Acid Calcium Phosphorus Magnesium AST ALT Lactate Dehydrogenase Total Bilirubin Direct Bilirubin CK-MB (CK-2) C-Reactive Protein NT-Pro-B Natriuret Pep Total Protein Albumin Arterial Blood Glucose Urine WBC (Auto) Urine Creatinine 12/08/19 12/08/19 12/08/19 03:55 05:21 06:01 WBC RBC Hgb Hct MCHC RDW MCV MCH Lymph % (Auto) [place] % (Auto) [place] # Eos # Lymph # (Auto) [place] # (Auto) Eos # (Auto) Seg Neutrophils % Seg Neuts % (Manual) Baso # (Auto) Lymphocytes % (Manual) Monocytes % (Manual) Eosinophils % (Manual) Basophils % (Manual) Seg Neutrophils # Seg Neutrophils # Man Lymphocytes # (Manual) Monocytes # (Manual) Eosinophils # (Manual) Nucleated RBC % Basophils # (Manual) PT INR APTT Heparin Anti-Xa Level 0.20 L ABG pH POC ABG pO2 ABG pO2 ABG HCO3 ABG O2 Saturation ABG Base Excess POC ABG pCO2 ABG Hemoglobin ABG Oxyhemoglobin ABG Sodium ABG Chloride ABG Glucose Oxyhemoglobin Sodium 149 H Potassium Chloride 108.0 H Carbon Dioxide BUN 28 H Creatinine 0.6 L Glucose 144 H POC Glucose 143 H Lactic Acid Calcium Phosphorus Magnesium AST 98 H ALT 145 H Lactate Dehydrogenase Total Bilirubin Direct Bilirubin CK-MB (CK-2) C-Reactive Protein NT-Pro-B Natriuret Pep Total Protein 6.0 L Albumin 2.4 L Arterial Blood Glucose Urine WBC (Auto) Urine Creatinine 12/08/19 12/08/19 12/08/19 12:08 18:11 23:53 WBC RBC Hgb Hct MCHC RDW MCV MCH Lymph % (Auto) [place] % (Auto) [place] # Eos # Lymph # (Auto) [place] # (Auto) Eos # (Auto) Seg Neutrophils % Seg Neuts % (Manual) Baso # (Auto) Lymphocytes % (Manual) Monocytes % (Manual) Eosinophils % (Manual) Basophils % (Manual) Seg Neutrophils # Seg Neutrophils # Man Lymphocytes # (Manual) Monocytes # (Manual) Eosinophils # (Manual) Nucleated RBC % Basophils # (Manual) PT INR APTT Heparin Anti-Xa Level ABG pH POC ABG pO2 ABG pO2 ABG HCO3 ABG O2 Saturation ABG Base Excess POC ABG pCO2 ABG Hemoglobin ABG Oxyhemoglobin ABG Sodium ABG Chloride ABG Glucose Oxyhemoglobin Sodium Potassium Chloride Carbon Dioxide BUN Creatinine Glucose POC Glucose 172 H 122 H 162 H Lactic Acid Calcium Phosphorus Magnesium AST ALT Lactate Dehydrogenase Total Bilirubin Direct Bilirubin CK-MB (CK-2) C-Reactive Protein NT-Pro-B Natriuret Pep Total Protein Albumin Arterial Blood Glucose Urine WBC (Auto) Urine Creatinine 12/09/19 12/09/19 12/09/19 04:03 04:03 05:53 WBC RBC Hgb 9.1 L Hct 28.9 L MCHC RDW MCV MCH Lymph % (Auto) [place] % (Auto) [place] # Eos # Lymph # (Auto) [place] # (Auto) Eos # (Auto) Seg Neutrophils % Seg Neuts % (Manual) Baso # (Auto) Lymphocytes % (Manual) Monocytes % (Manual) Eosinophils % (Manual) Basophils % (Manual) Seg Neutrophils # Seg Neutrophils # Man Lymphocytes # (Manual) Monocytes # (Manual) Eosinophils # (Manual) Nucleated RBC % Basophils # (Manual) PT INR APTT Heparin Anti-Xa Level 0.15 L ABG pH POC ABG pO2 ABG pO2 ABG HCO3 ABG O2 Saturation ABG Base Excess POC ABG pCO2 ABG Hemoglobin ABG Oxyhemoglobin ABG Sodium ABG Chloride ABG Glucose Oxyhemoglobin Sodium Potassium Chloride Carbon Dioxide BUN Creatinine Glucose POC Glucose 124 H Lactic Acid Calcium Phosphorus Magnesium AST ALT Lactate Dehydrogenase Total Bilirubin Direct Bilirubin CK-MB (CK-2) C-Reactive Protein NT-Pro-B Natriuret Pep Total Protein Albumin Arterial Blood Glucose Urine WBC (Auto) Urine Creatinine 12/09/19 12/09/19 12/10/19 09:43 12:41 00:13 WBC RBC Hgb Hct MCHC RDW MCV MCH Lymph % (Auto) [place] % (Auto) [place] # Eos # Lymph # (Auto) [place] # (Auto) Eos # (Auto) Seg Neutrophils % Seg Neuts % (Manual) Baso # (Auto) Lymphocytes % (Manual) Monocytes % (Manual) Eosinophils % (Manual) Basophils % (Manual) Seg Neutrophils # Seg Neutrophils # Man Lymphocytes # (Manual) Monocytes # (Manual) Eosinophils # (Manual) Nucleated RBC % Basophils # (Manual) PT INR APTT Heparin Anti-Xa Level ABG pH POC ABG pO2 ABG pO2 ABG HCO3 ABG O2 Saturation ABG Base Excess POC ABG pCO2 ABG Hemoglobin ABG Oxyhemoglobin ABG Sodium ABG Chloride ABG Glucose Oxyhemoglobin Sodium Potassium Chloride Carbon Dioxide BUN 25 H Creatinine 0.6 L Glucose 131 H POC Glucose 109 H 120 H Lactic Acid Calcium Phosphorus Magnesium AST ALT Lactate Dehydrogenase Total Bilirubin Direct Bilirubin CK-MB (CK-2) C-Reactive Protein NT-Pro-B Natriuret Pep Total Protein Albumin Arterial Blood Glucose Urine WBC (Auto) Urine Creatinine 12/10/19 12/10/19 12/10/19 04:14 04:14 12:00 WBC 13.3 H RBC 3.34 L Hgb 9.6 L Hct 30.4 L MCHC RDW 15.4 H MCV MCH Lymph % (Auto) [place] % (Auto) [place] # Eos # Lymph # (Auto) [place] # (Auto) Eos # (Auto) Seg Neutrophils % Seg Neuts % (Manual) 75.0 H Baso # (Auto) Lymphocytes % (Manual) 13.0 L Monocytes % (Manual) 8.0 H Eosinophils % (Manual) Basophils % (Manual) 2.0 H Seg Neutrophils # Seg Neutrophils # Man 10.0 H Lymphocytes # (Manual) Monocytes # (Manual) 1.1 H Eosinophils # (Manual) Nucleated RBC % Basophils # (Manual) 0.3 H PT INR APTT Heparin Anti-Xa Level ABG pH POC ABG pO2 ABG pO2 ABG HCO3 ABG O2 Saturation ABG Base Excess POC ABG pCO2 ABG Hemoglobin ABG Oxyhemoglobin ABG Sodium ABG Chloride ABG Glucose Oxyhemoglobin Sodium 147 H Potassium Chloride 108.3 H Carbon Dioxide BUN 21 H Creatinine 0.6 L Glucose 104 H POC Glucose 133 H Lactic Acid Calcium Phosphorus Magnesium AST ALT Lactate Dehydrogenase Total Bilirubin Direct Bilirubin CK-MB (CK-2) C-Reactive Protein NT-Pro-B Natriuret Pep Total Protein Albumin Arterial Blood Glucose Urine WBC (Auto) Urine Creatinine 12/10/19 12/10/19 12/11/19 18:44 21:20 00:08 WBC 14.9 H RBC 3.36 L Hgb 9.6 L Hct 30.5 L MCHC RDW 15.4 H MCV MCH Lymph % (Auto) [place] % (Auto) [place] # Eos # Lymph # (Auto) [place] # (Auto) Eos # (Auto) Seg Neutrophils % Seg Neuts % (Manual) Baso # (Auto) Lymphocytes % (Manual) Monocytes % (Manual) Eosinophils % (Manual) Basophils % (Manual) Seg Neutrophils # Seg Neutrophils # Man Lymphocytes # (Manual) Monocytes # (Manual) Eosinophils # (Manual) Nucleated RBC % Basophils # (Manual) PT INR APTT Heparin Anti-Xa Level ABG pH POC ABG pO2 ABG pO2 ABG HCO3 ABG O2 Saturation ABG Base Excess POC ABG pCO2 ABG Hemoglobin ABG Oxyhemoglobin ABG Sodium ABG Chloride ABG Glucose Oxyhemoglobin Sodium Potassium Chloride Carbon Dioxide BUN Creatinine Glucose POC Glucose 119 H 134 H Lactic Acid Calcium Phosphorus Magnesium AST ALT Lactate Dehydrogenase Total Bilirubin Direct Bilirubin CK-MB (CK-2) C-Reactive Protein NT-Pro-B Natriuret Pep Total Protein Albumin Arterial Blood Glucose Urine WBC (Auto) Urine Creatinine 12/11/19 12/11/19 12/11/19 03:54 07:28 08:36 WBC 11.9 H RBC 3.25 L Hgb 9.6 L Hct 29.2 L MCHC RDW 15.7 H MCV MCH Lymph % (Auto) [place] % (Auto) [place] # Eos # Lymph # (Auto) [place] # (Auto) Eos # (Auto) Seg Neutrophils % Seg Neuts % (Manual) Baso # (Auto) Lymphocytes % (Manual) Monocytes % (Manual) Eosinophils % (Manual) Basophils % (Manual) Seg Neutrophils # Seg Neutrophils # Man Lymphocytes # (Manual) Monocytes # (Manual) Eosinophils # (Manual) Nucleated RBC % Basophils # (Manual) PT INR APTT Heparin Anti-Xa Level 0.10 L 0.16 L ABG pH POC ABG pO2 ABG pO2 ABG HCO3 ABG O2 Saturation ABG Base Excess POC ABG pCO2 ABG Hemoglobin ABG Oxyhemoglobin ABG Sodium ABG Chloride ABG Glucose Oxyhemoglobin Sodium Potassium Chloride Carbon Dioxide BUN Creatinine Glucose POC Glucose Lactic Acid Calcium Phosphorus Magnesium AST ALT Lactate Dehydrogenase Total Bilirubin Direct Bilirubin CK-MB (CK-2) C-Reactive Protein NT-Pro-B Natriuret Pep Total Protein Albumin Arterial Blood Glucose Urine WBC (Auto) Urine Creatinine 12/11/19 12/11/19 12/11/19 08:36 11:45 17:15 WBC RBC Hgb Hct MCHC RDW MCV MCH Lymph % (Auto) [place] % (Auto) [place] # Eos # Lymph # (Auto) [place] # (Auto) Eos # (Auto) Seg Neutrophils % Seg Neuts % (Manual) Baso # (Auto) Lymphocytes % (Manual) Monocytes % (Manual) Eosinophils % (Manual) Basophils % (Manual) Seg Neutrophils # Seg Neutrophils # Man Lymphocytes # (Manual) Monocytes # (Manual) Eosinophils # (Manual) Nucleated RBC % Basophils # (Manual) PT INR APTT Heparin Anti-Xa Level ABG pH POC ABG pO2 ABG pO2 ABG HCO3 ABG O2 Saturation ABG Base Excess POC ABG pCO2 ABG Hemoglobin ABG Oxyhemoglobin ABG Sodium ABG Chloride ABG Glucose Oxyhemoglobin Sodium Potassium Chloride Carbon Dioxide BUN Creatinine 0.5 L Glucose 128 H POC Glucose 136 H 109 H Lactic Acid Calcium Phosphorus Magnesium AST ALT Lactate Dehydrogenase Total Bilirubin Direct Bilirubin CK-MB (CK-2) C-Reactive Protein NT-Pro-B Natriuret Pep Total Protein Albumin Arterial Blood Glucose Urine WBC (Auto) Urine Creatinine 12/12/19 12/12/19 12/12/19 00:03 05:53 05:53 WBC RBC Hgb 8.8 L Hct 27.6 L MCHC RDW MCV MCH Lymph % (Auto) [place] % (Auto) [place] # Eos # Lymph # (Auto) [place] # (Auto) Eos # (Auto) Seg Neutrophils % Seg Neuts % (Manual) Baso # (Auto) Lymphocytes % (Manual) Monocytes % (Manual) Eosinophils % (Manual) Basophils % (Manual) Seg Neutrophils # Seg Neutrophils # Man Lymphocytes # (Manual) Monocytes # (Manual) Eosinophils # (Manual) Nucleated RBC % Basophils # (Manual) PT INR APTT Heparin Anti-Xa Level 0.22 L ABG pH POC ABG pO2 ABG pO2 ABG HCO3 ABG O2 Saturation ABG Base Excess POC ABG pCO2 ABG Hemoglobin ABG Oxyhemoglobin ABG Sodium ABG Chloride ABG Glucose Oxyhemoglobin Sodium Potassium Chloride Carbon Dioxide BUN Creatinine Glucose POC Glucose 116 H Lactic Acid Calcium Phosphorus Magnesium AST ALT Lactate Dehydrogenase Total Bilirubin Direct Bilirubin CK-MB (CK-2) C-Reactive Protein NT-Pro-B Natriuret Pep Total Protein Albumin Arterial Blood Glucose Urine WBC (Auto) Urine Creatinine 12/12/19 12/12/19 12/12/19 09:38 12:18 17:44 WBC RBC Hgb Hct MCHC RDW MCV MCH Lymph % (Auto) [place] % (Auto) [place] # Eos # Lymph # (Auto) [place] # (Auto) Eos # (Auto) Seg Neutrophils % Seg Neuts % (Manual) Baso # (Auto) Lymphocytes % (Manual) Monocytes % (Manual) Eosinophils % (Manual) Basophils % (Manual) Seg Neutrophils # Seg Neutrophils # Man Lymphocytes # (Manual) Monocytes # (Manual) Eosinophils # (Manual) Nucleated RBC % Basophils # (Manual) PT INR APTT Heparin Anti-Xa Level ABG pH POC ABG pO2 ABG pO2 ABG HCO3 ABG O2 Saturation ABG Base Excess POC ABG pCO2 ABG Hemoglobin ABG Oxyhemoglobin ABG Sodium ABG Chloride ABG Glucose Oxyhemoglobin Sodium Potassium Chloride Carbon Dioxide BUN Creatinine Glucose POC Glucose 115 H 146 H 146 H Lactic Acid Calcium Phosphorus Magnesium AST ALT Lactate Dehydrogenase Total Bilirubin Direct Bilirubin CK-MB (CK-2) C-Reactive Protein NT-Pro-B Natriuret Pep Total Protein Albumin Arterial Blood Glucose Urine WBC (Auto) Urine Creatinine 12/12/19 12/13/19 12/13/19 23:33 05:32 05:32 WBC 13.1 H RBC 3.27 L Hgb 9.5 L Hct 29.3 L MCHC RDW 15.6 H MCV MCH Lymph % (Auto) [place] % (Auto) [place] # Eos # Lymph # (Auto) [place] # (Auto) Eos # (Auto) Seg Neutrophils % Seg Neuts % (Manual) 74.0 H Baso # (Auto) Lymphocytes % (Manual) 8.0 L Monocytes % (Manual) 9.0 H Eosinophils % (Manual) 5.0 H Basophils % (Manual) Seg Neutrophils # Seg Neutrophils # Man 9.7 H Lymphocytes # (Manual) 1.0 L Monocytes # (Manual) 1.2 H Eosinophils # (Manual) 0.7 H Nucleated RBC % Basophils # (Manual) PT INR APTT Heparin Anti-Xa Level 0.20 L ABG pH POC ABG pO2 ABG pO2 ABG HCO3 ABG O2 Saturation ABG Base Excess POC ABG pCO2 ABG Hemoglobin ABG Oxyhemoglobin ABG Sodium ABG Chloride ABG Glucose Oxyhemoglobin Sodium Potassium Chloride Carbon Dioxide BUN Creatinine Glucose POC Glucose 126 H Lactic Acid Calcium Phosphorus Magnesium AST ALT Lactate Dehydrogenase Total Bilirubin Direct Bilirubin CK-MB (CK-2) C-Reactive Protein NT-Pro-B Natriuret Pep Total Protein Albumin Arterial Blood Glucose Urine WBC (Auto) Urine Creatinine 12/13/19 12/13/19 12/13/19 05:32 05:46 11:57 WBC RBC Hgb Hct MCHC RDW MCV MCH Lymph % (Auto) [place] % (Auto) [place] # Eos # Lymph # (Auto) [place] # (Auto) Eos # (Auto) Seg Neutrophils % Seg Neuts % (Manual) Baso # (Auto) Lymphocytes % (Manual) Monocytes % (Manual) Eosinophils % (Manual) Basophils % (Manual) Seg Neutrophils # Seg Neutrophils # Man Lymphocytes # (Manual) Monocytes # (Manual) Eosinophils # (Manual) Nucleated RBC % Basophils # (Manual) PT INR APTT Heparin Anti-Xa Level ABG pH POC ABG pO2 ABG pO2 ABG HCO3 ABG O2 Saturation ABG Base Excess POC ABG pCO2 ABG Hemoglobin ABG Oxyhemoglobin ABG Sodium ABG Chloride ABG Glucose Oxyhemoglobin Sodium Potassium Chloride Carbon Dioxide 31 H BUN Creatinine 0.6 L Glucose 114 H POC Glucose 118 H 133 H Lactic Acid Calcium Phosphorus Magnesium AST ALT Lactate Dehydrogenase Total Bilirubin Direct Bilirubin CK-MB (CK-2) C-Reactive Protein NT-Pro-B Natriuret Pep Total Protein Albumin Arterial Blood Glucose Urine WBC (Auto) Urine Creatinine 12/13/19 12/13/19 12/14/19 17:44 23:46 05:32 WBC RBC Hgb Hct MCHC RDW MCV MCH Lymph % (Auto) [place] % (Auto) [place] # Eos # Lymph # (Auto) [place] # (Auto) Eos # (Auto) Seg Neutrophils % Seg Neuts % (Manual) Baso # (Auto) Lymphocytes % (Manual) Monocytes % (Manual) Eosinophils % (Manual) Basophils % (Manual) Seg Neutrophils # Seg Neutrophils # Man Lymphocytes # (Manual) Monocytes # (Manual) Eosinophils # (Manual) Nucleated RBC % Basophils # (Manual) PT INR APTT Heparin Anti-Xa Level ABG pH POC ABG pO2 ABG pO2 ABG HCO3 ABG O2 Saturation ABG Base Excess POC ABG pCO2 ABG Hemoglobin ABG Oxyhemoglobin ABG Sodium ABG Chloride ABG Glucose Oxyhemoglobin Sodium Potassium Chloride Carbon Dioxide BUN Creatinine Glucose POC Glucose 161 H 126 H 139 H Lactic Acid Calcium Phosphorus Magnesium AST ALT Lactate Dehydrogenase Total Bilirubin Direct Bilirubin CK-MB (CK-2) C-Reactive Protein NT-Pro-B Natriuret Pep Total Protein Albumin Arterial Blood Glucose Urine WBC (Auto) Urine Creatinine 12/14/19 12/14/19 12/14/19 06:03 06:03 09:37 WBC RBC Hgb 9.6 L Hct 30.4 L MCHC RDW MCV MCH Lymph % (Auto) [place] % (Auto) [place] # Eos # Lymph # (Auto) [place] # (Auto) Eos # (Auto) Seg Neutrophils % Seg Neuts % (Manual) Baso # (Auto) Lymphocytes % (Manual) Monocytes % (Manual) Eosinophils % (Manual) Basophils % (Manual) Seg Neutrophils # Seg Neutrophils # Man Lymphocytes # (Manual) Monocytes # (Manual) Eosinophils # (Manual) Nucleated RBC % Basophils # (Manual) PT INR APTT Heparin Anti-Xa Level 0.24 L ABG pH POC ABG pO2 ABG pO2 ABG HCO3 ABG O2 Saturation ABG Base Excess POC ABG pCO2 ABG Hemoglobin ABG Oxyhemoglobin ABG Sodium ABG Chloride ABG Glucose Oxyhemoglobin Sodium Potassium Chloride Carbon Dioxide BUN Creatinine 0.6 L Glucose 162 H POC Glucose Lactic Acid Calcium Phosphorus Magnesium AST 71 H ALT 118 H Lactate Dehydrogenase Total Bilirubin Direct Bilirubin CK-MB (CK-2) C-Reactive Protein NT-Pro-B Natriuret Pep Total Protein 6.2 L Albumin 2.3 L Arterial Blood Glucose Urine WBC (Auto) Urine Creatinine 12/14/19 12/14/19 12/15/19 12:06 18:18 00:19 WBC RBC Hgb Hct MCHC RDW MCV MCH Lymph % (Auto) [place] % (Auto) [place] # Eos # Lymph # (Auto) [place] # (Auto) Eos # (Auto) Seg Neutrophils % Seg Neuts % (Manual) Baso # (Auto) Lymphocytes % (Manual) Monocytes % (Manual) Eosinophils % (Manual) Basophils % (Manual) Seg Neutrophils # Seg Neutrophils # Man Lymphocytes # (Manual) Monocytes # (Manual) Eosinophils # (Manual) Nucleated RBC % Basophils # (Manual) PT INR APTT Heparin Anti-Xa Level ABG pH POC ABG pO2 ABG pO2 ABG HCO3 ABG O2 Saturation ABG Base Excess POC ABG pCO2 ABG Hemoglobin ABG Oxyhemoglobin ABG Sodium ABG Chloride ABG Glucose Oxyhemoglobin Sodium Potassium Chloride Carbon Dioxide BUN Creatinine Glucose POC Glucose 147 H 166 H 123 H Lactic Acid Calcium Phosphorus Magnesium AST ALT Lactate Dehydrogenase Total Bilirubin Direct Bilirubin CK-MB (CK-2) C-Reactive Protein NT-Pro-B Natriuret Pep Total Protein Albumin Arterial Blood Glucose Urine WBC (Auto) Urine Creatinine 12/15/19 12/15/19 12/15/19 05:28 05:29 05:29 WBC 14.9 H RBC 3.19 L Hgb 9.1 L Hct 28.7 L MCHC RDW 16.0 H MCV MCH Lymph % (Auto) [place] % (Auto) [place] # Eos # Lymph # (Auto) [place] # (Auto) Eos # (Auto) Seg Neutrophils % Seg Neuts % (Manual) Baso # (Auto) Lymphocytes % (Manual) Monocytes % (Manual) Eosinophils % (Manual) Basophils % (Manual) Seg Neutrophils # Seg Neutrophils # Man Lymphocytes # (Manual) Monocytes # (Manual) Eosinophils # (Manual) Nucleated RBC % Basophils # (Manual) PT INR APTT Heparin Anti-Xa Level 0.19 L ABG pH POC ABG pO2 ABG pO2 ABG HCO3 ABG O2 Saturation ABG Base Excess POC ABG pCO2 ABG Hemoglobin ABG Oxyhemoglobin ABG Sodium ABG Chloride ABG Glucose Oxyhemoglobin Sodium Potassium Chloride Carbon Dioxide BUN Creatinine 0.6 L Glucose 110 H POC Glucose Lactic Acid Calcium Phosphorus Magnesium AST ALT Lactate Dehydrogenase Total Bilirubin Direct Bilirubin CK-MB (CK-2) C-Reactive Protein NT-Pro-B Natriuret Pep Total Protein Albumin Arterial Blood Glucose Urine WBC (Auto) Urine Creatinine 12/15/19 12/15/19 12/15/19 05:53 11:50 17:26 WBC RBC Hgb Hct MCHC RDW MCV MCH Lymph % (Auto) [place] % (Auto) [place] # Eos # Lymph # (Auto) [place] # (Auto) Eos # (Auto) Seg Neutrophils % Seg Neuts % (Manual) Baso # (Auto) Lymphocytes % (Manual) Monocytes % (Manual) Eosinophils % (Manual) Basophils % (Manual) Seg Neutrophils # Seg Neutrophils # Man Lymphocytes # (Manual) Monocytes # (Manual) Eosinophils # (Manual) Nucleated RBC % Basophils # (Manual) PT INR APTT Heparin Anti-Xa Level ABG pH POC ABG pO2 ABG pO2 ABG HCO3 ABG O2 Saturation ABG Base Excess POC ABG pCO2 ABG Hemoglobin ABG Oxyhemoglobin ABG Sodium ABG Chloride ABG Glucose Oxyhemoglobin Sodium Potassium Chloride Carbon Dioxide BUN Creatinine Glucose POC Glucose 119 H 132 H 128 H Lactic Acid Calcium Phosphorus Magnesium AST ALT Lactate Dehydrogenase Total Bilirubin Direct Bilirubin CK-MB (CK-2) C-Reactive Protein NT-Pro-B Natriuret Pep Total Protein Albumin Arterial Blood Glucose Urine WBC (Auto) Urine Creatinine 12/15/19 12/16/19 12/16/19 23:11 05:30 05:46 WBC RBC Hgb 8.8 L Hct 27.9 L MCHC RDW MCV MCH Lymph % (Auto) [place] % (Auto) [place] # Eos # Lymph # (Auto) [place] # (Auto) Eos # (Auto) Seg Neutrophils % Seg Neuts % (Manual) Baso # (Auto) Lymphocytes % (Manual) Monocytes % (Manual) Eosinophils % (Manual) Basophils % (Manual) Seg Neutrophils # Seg Neutrophils # Man Lymphocytes # (Manual) Monocytes # (Manual) Eosinophils # (Manual) Nucleated RBC % Basophils # (Manual) PT INR APTT Heparin Anti-Xa Level ABG pH POC ABG pO2 ABG pO2 ABG HCO3 ABG O2 Saturation ABG Base Excess POC ABG pCO2 ABG Hemoglobin ABG Oxyhemoglobin ABG Sodium ABG Chloride ABG Glucose Oxyhemoglobin Sodium Potassium Chloride Carbon Dioxide BUN Creatinine Glucose POC Glucose 150 H 134 H Lactic Acid Calcium Phosphorus Magnesium AST ALT Lactate Dehydrogenase Total Bilirubin Direct Bilirubin CK-MB (CK-2) C-Reactive Protein NT-Pro-B Natriuret Pep Total Protein Albumin Arterial Blood Glucose Urine WBC (Auto) Urine Creatinine 12/16/19 12/16/19 12/16/19 05:46 05:46 11:44 WBC RBC Hgb Hct MCHC RDW MCV MCH Lymph % (Auto) [place] % (Auto) [place] # Eos # Lymph # (Auto) [place] # (Auto) Eos # (Auto) Seg Neutrophils % Seg Neuts % (Manual) Baso # (Auto) Lymphocytes % (Manual) Monocytes % (Manual) Eosinophils % (Manual) Basophils % (Manual) Seg Neutrophils # Seg Neutrophils # Man Lymphocytes # (Manual) Monocytes # (Manual) Eosinophils # (Manual) Nucleated RBC % Basophils # (Manual) PT INR APTT Heparin Anti-Xa Level 0.20 L ABG pH POC ABG pO2 ABG pO2 ABG HCO3 ABG O2 Saturation ABG Base Excess POC ABG pCO2 ABG Hemoglobin ABG Oxyhemoglobin ABG Sodium ABG Chloride ABG Glucose Oxyhemoglobin Sodium Potassium Chloride Carbon Dioxide 31 H BUN Creatinine 0.5 L Glucose 147 H POC Glucose 164 H Lactic Acid Calcium Phosphorus Magnesium AST ALT Lactate Dehydrogenase Total Bilirubin Direct Bilirubin CK-MB (CK-2) C-Reactive Protein NT-Pro-B Natriuret Pep Total Protein Albumin Arterial Blood Glucose Urine WBC (Auto) Urine Creatinine 12/16/19 12/16/19 12/17/19 17:17 23:49 05:30 WBC 13.9 H RBC 3.27 L Hgb 9.4 L Hct 29.2 L MCHC RDW 16.0 H MCV MCH Lymph % (Auto) [place] % (Auto) 8.8 H [place] # Eos # Lymph # (Auto) [place] # (Auto) 1.2 H Eos # (Auto) 0.5 H Seg Neutrophils % 70.5 H Seg Neuts % (Manual) Baso # (Auto) 0.2 H Lymphocytes % (Manual) Monocytes % (Manual) Eosinophils % (Manual) Basophils % (Manual) Seg Neutrophils # 9.8 H Seg Neutrophils # Man Lymphocytes # (Manual) Monocytes # (Manual) Eosinophils # (Manual) Nucleated RBC % Basophils # (Manual) PT INR APTT Heparin Anti-Xa Level ABG pH POC ABG pO2 ABG pO2 ABG HCO3 ABG O2 Saturation ABG Base Excess POC ABG pCO2 ABG Hemoglobin ABG Oxyhemoglobin ABG Sodium ABG Chloride ABG Glucose Oxyhemoglobin Sodium Potassium Chloride Carbon Dioxide BUN Creatinine Glucose POC Glucose 162 H 144 H Lactic Acid Calcium Phosphorus Magnesium AST ALT Lactate Dehydrogenase Total Bilirubin Direct Bilirubin CK-MB (CK-2) C-Reactive Protein NT-Pro-B Natriuret Pep Total Protein Albumin Arterial Blood Glucose Urine WBC (Auto) Urine Creatinine 12/17/19 12/17/19 12/17/19 05:30 06:06 11:50 WBC RBC Hgb Hct MCHC RDW MCV MCH Lymph % (Auto) [place] % (Auto) [place] # Eos # Lymph # (Auto) [place] # (Auto) Eos # (Auto) Seg Neutrophils % Seg Neuts % (Manual) Baso # (Auto) Lymphocytes % (Manual) Monocytes % (Manual) Eosinophils % (Manual) Basophils % (Manual) Seg Neutrophils # Seg Neutrophils # Man Lymphocytes # (Manual) Monocytes # (Manual) Eosinophils # (Manual) Nucleated RBC % Basophils # (Manual) PT INR APTT Heparin Anti-Xa Level ABG pH POC ABG pO2 ABG pO2 ABG HCO3 ABG O2 Saturation ABG Base Excess POC ABG pCO2 ABG Hemoglobin ABG Oxyhemoglobin ABG Sodium ABG Chloride ABG Glucose Oxyhemoglobin Sodium Potassium Chloride 97.4 L Carbon Dioxide 32 H BUN Creatinine 0.5 L Glucose 135 H POC Glucose 151 H 140 H Lactic Acid Calcium Phosphorus Magnesium AST ALT Lactate Dehydrogenase Total Bilirubin Direct Bilirubin CK-MB (CK-2) C-Reactive Protein NT-Pro-B Natriuret Pep Total Protein Albumin Arterial Blood Glucose Urine WBC (Auto) Urine Creatinine 12/17/19 12/17/19 12/18/19 17:50 23:46 05:17 WBC RBC Hgb 8.8 L Hct 28.0 L MCHC RDW MCV MCH Lymph % (Auto) [place] % (Auto) [place] # Eos # Lymph # (Auto) [place] # (Auto) Eos # (Auto) Seg Neutrophils % Seg Neuts % (Manual) Baso # (Auto) Lymphocytes % (Manual) Monocytes % (Manual) Eosinophils % (Manual) Basophils % (Manual) Seg Neutrophils # Seg Neutrophils # Man Lymphocytes # (Manual) Monocytes # (Manual) Eosinophils # (Manual) Nucleated RBC % Basophils # (Manual) PT INR APTT Heparin Anti-Xa Level ABG pH POC ABG pO2 ABG pO2 ABG HCO3 ABG O2 Saturation ABG Base Excess POC ABG pCO2 ABG Hemoglobin ABG Oxyhemoglobin ABG Sodium ABG Chloride ABG Glucose Oxyhemoglobin Sodium Potassium Chloride Carbon Dioxide BUN Creatinine Glucose POC Glucose 158 H 150 H Lactic Acid Calcium Phosphorus Magnesium AST ALT Lactate Dehydrogenase Total Bilirubin Direct Bilirubin CK-MB (CK-2) C-Reactive Protein NT-Pro-B Natriuret Pep Total Protein Albumin Arterial Blood Glucose Urine WBC (Auto) Urine Creatinine 12/18/19 12/18/19 12/18/19 05:17 05:49 11:12 WBC RBC Hgb Hct MCHC RDW MCV MCH Lymph % (Auto) [place] % (Auto) [place] # Eos # Lymph # (Auto) [place] # (Auto) Eos # (Auto) Seg Neutrophils % Seg Neuts % (Manual) Baso # (Auto) Lymphocytes % (Manual) Monocytes % (Manual) Eosinophils % (Manual) Basophils % (Manual) Seg Neutrophils # Seg Neutrophils # Man Lymphocytes # (Manual) Monocytes # (Manual) Eosinophils # (Manual) Nucleated RBC % Basophils # (Manual) PT INR APTT Heparin Anti-Xa Level 0.16 L ABG pH POC ABG pO2 ABG pO2 ABG HCO3 ABG O2 Saturation ABG Base Excess POC ABG pCO2 ABG Hemoglobin ABG Oxyhemoglobin ABG Sodium ABG Chloride ABG Glucose Oxyhemoglobin Sodium Potassium Chloride Carbon Dioxide BUN Creatinine Glucose POC Glucose 127 H 191 H Lactic Acid Calcium Phosphorus Magnesium AST ALT Lactate Dehydrogenase Total Bilirubin Direct Bilirubin CK-MB (CK-2) C-Reactive Protein NT-Pro-B Natriuret Pep Total Protein Albumin Arterial Blood Glucose Urine WBC (Auto) Urine Creatinine 12/18/19 12/18/19 12/19/19 17:03 20:16 00:08 WBC RBC Hgb Hct MCHC RDW MCV MCH Lymph % (Auto) [place] % (Auto) [place] # Eos # Lymph # (Auto) [place] # (Auto) Eos # (Auto) Seg Neutrophils % Seg Neuts % (Manual) Baso # (Auto) Lymphocytes % (Manual) Monocytes % (Manual) Eosinophils % (Manual) Basophils % (Manual) Seg Neutrophils # Seg Neutrophils # Man Lymphocytes # (Manual) Monocytes # (Manual) Eosinophils # (Manual) Nucleated RBC % Basophils # (Manual) PT INR APTT Heparin Anti-Xa Level ABG pH POC ABG pO2 ABG pO2 ABG HCO3 ABG O2 Saturation ABG Base Excess POC ABG pCO2 ABG Hemoglobin ABG Oxyhemoglobin ABG Sodium ABG Chloride ABG Glucose Oxyhemoglobin Sodium Potassium Chloride Carbon Dioxide BUN Creatinine Glucose POC Glucose 133 H 128 H 129 H Lactic Acid Calcium Phosphorus Magnesium AST ALT Lactate Dehydrogenase Total Bilirubin Direct Bilirubin CK-MB (CK-2) C-Reactive Protein NT-Pro-B Natriuret Pep Total Protein Albumin Arterial Blood Glucose Urine WBC (Auto) Urine Creatinine 12/19/19 12/19/19 12/19/19 04:45 04:45 05:35 WBC RBC Hgb Hct MCHC RDW MCV MCH Lymph % (Auto) [place] % (Auto) [place] # Eos # Lymph # (Auto) [place] # (Auto) Eos # (Auto) Seg Neutrophils % Seg Neuts % (Manual) Baso # (Auto) Lymphocytes % (Manual) Monocytes % (Manual) Eosinophils % (Manual) Basophils % (Manual) Seg Neutrophils # Seg Neutrophils # Man Lymphocytes # (Manual) Monocytes # (Manual) Eosinophils # (Manual) Nucleated RBC % Basophils # (Manual) PT INR APTT Heparin Anti-Xa Level 0.17 L ABG pH POC ABG pO2 ABG pO2 ABG HCO3 ABG O2 Saturation ABG Base Excess POC ABG pCO2 ABG Hemoglobin ABG Oxyhemoglobin ABG Sodium ABG Chloride ABG Glucose Oxyhemoglobin Sodium Potassium Chloride Carbon Dioxide BUN Creatinine Glucose POC Glucose 120 H Lactic Acid Calcium Phosphorus Magnesium AST ALT Lactate Dehydrogenase 228 H Total Bilirubin Direct Bilirubin CK-MB (CK-2) C-Reactive Protein NT-Pro-B Natriuret Pep Total Protein Albumin Arterial Blood Glucose Urine WBC (Auto) Urine Creatinine 12/19/19 12/19/19 12/19/19 09:20 11:32 11:32 WBC 14.6 H RBC 3.08 L Hgb 9.0 L Hct 26.8 L MCHC RDW 15.9 H MCV MCH Lymph % (Auto) [place] % (Auto) [place] # Eos # Lymph # (Auto) [place] # (Auto) Eos # (Auto) Seg Neutrophils % Seg Neuts % (Manual) 82.0 H Baso # (Auto) Lymphocytes % (Manual) 10.0 L Monocytes % (Manual) Eosinophils % (Manual) Basophils % (Manual) Seg Neutrophils # Seg Neutrophils # Man 12.0 H Lymphocytes # (Manual) Monocytes # (Manual) 0.9 H Eosinophils # (Manual) Nucleated RBC % 1.0 H Basophils # (Manual) PT INR APTT Heparin Anti-Xa Level ABG pH 7.451 H POC ABG pO2 ABG pO2 62.6 L ABG HCO3 33.2 H ABG O2 Saturation 93.8 L ABG Base Excess 8.3 H POC ABG pCO2 ABG Hemoglobin 8.3 L ABG Oxyhemoglobin ABG Sodium ABG Chloride ABG Glucose Oxyhemoglobin 91.9 L Sodium Potassium Chloride 95.0 L Carbon Dioxide 33 H BUN 22 H Creatinine 0.6 L Glucose 150 H POC Glucose Lactic Acid Calcium Phosphorus Magnesium AST ALT Lactate Dehydrogenase Total Bilirubin Direct Bilirubin CK-MB (CK-2) C-Reactive Protein NT-Pro-B Natriuret Pep Total Protein 6.2 L Albumin 2.4 L Arterial Blood Glucose Urine WBC (Auto) Urine Creatinine 12/19/19 12/19/19 12/20/19 11:56 18:17 00:09 WBC RBC Hgb Hct MCHC RDW MCV MCH Lymph % (Auto) [place] % (Auto) [place] # Eos # Lymph # (Auto) [place] # (Auto) Eos # (Auto) Seg Neutrophils % Seg Neuts % (Manual) Baso # (Auto) Lymphocytes % (Manual) Monocytes % (Manual) Eosinophils % (Manual) Basophils % (Manual) Seg Neutrophils # Seg Neutrophils # Man Lymphocytes # (Manual) Monocytes # (Manual) Eosinophils # (Manual) Nucleated RBC % Basophils # (Manual) PT INR APTT Heparin Anti-Xa Level ABG pH POC ABG pO2 ABG pO2 ABG HCO3 ABG O2 Saturation ABG Base Excess POC ABG pCO2 ABG Hemoglobin ABG Oxyhemoglobin ABG Sodium ABG Chloride ABG Glucose Oxyhemoglobin Sodium Potassium Chloride Carbon Dioxide BUN Creatinine Glucose POC Glucose 156 H 156 H 155 H Lactic Acid Calcium Phosphorus Magnesium AST ALT Lactate Dehydrogenase Total Bilirubin Direct Bilirubin CK-MB (CK-2) C-Reactive Protein NT-Pro-B Natriuret Pep Total Protein Albumin Arterial Blood Glucose Urine WBC (Auto) Urine Creatinine 12/20/19 12/20/19 12/20/19 05:26 06:02 18:17 WBC RBC Hgb Hct MCHC RDW MCV MCH Lymph % (Auto) [place] % (Auto) [place] # Eos # Lymph # (Auto) [place] # (Auto) Eos # (Auto) Seg Neutrophils % Seg Neuts % (Manual) Baso # (Auto) Lymphocytes % (Manual) Monocytes % (Manual) Eosinophils % (Manual) Basophils % (Manual) Seg Neutrophils # Seg Neutrophils # Man Lymphocytes # (Manual) Monocytes # (Manual) Eosinophils # (Manual) Nucleated RBC % Basophils # (Manual) PT INR APTT Heparin Anti-Xa Level 0.19 L ABG pH POC ABG pO2 ABG pO2 ABG HCO3 ABG O2 Saturation ABG Base Excess POC ABG pCO2 ABG Hemoglobin ABG Oxyhemoglobin ABG Sodium ABG Chloride ABG Glucose Oxyhemoglobin Sodium Potassium Chloride Carbon Dioxide BUN Creatinine Glucose POC Glucose 137 H 128 H Lactic Acid Calcium Phosphorus Magnesium AST ALT Lactate Dehydrogenase Total Bilirubin Direct Bilirubin CK-MB (CK-2) C-Reactive Protein NT-Pro-B Natriuret Pep Total Protein Albumin Arterial Blood Glucose Urine WBC (Auto) Urine Creatinine 12/20/19 12/21/19 12/21/19 23:34 05:31 05:31 WBC 12.7 H RBC 3.09 L Hgb 8.9 L Hct 27.4 L MCHC RDW 15.8 H MCV MCH Lymph % (Auto) 12.1 L [place] % (Auto) 7.8 H [place] # Eos # Lymph # (Auto) [place] # (Auto) 1.0 H Eos # (Auto) Seg Neutrophils % 77.1 H Seg Neuts % (Manual) Baso # (Auto) Lymphocytes % (Manual) Monocytes % (Manual) Eosinophils % (Manual) Basophils % (Manual) Seg Neutrophils # 9.8 H Seg Neutrophils # Man Lymphocytes # (Manual) Monocytes # (Manual) Eosinophils # (Manual) Nucleated RBC % Basophils # (Manual) PT INR APTT Heparin Anti-Xa Level ABG pH POC ABG pO2 ABG pO2 ABG HCO3 ABG O2 Saturation ABG Base Excess POC ABG pCO2 ABG Hemoglobin ABG Oxyhemoglobin ABG Sodium ABG Chloride ABG Glucose Oxyhemoglobin Sodium Potassium Chloride 96.9 L Carbon Dioxide 37 H BUN 27 H Creatinine 0.7 L Glucose 140 H POC Glucose 145 H Lactic Acid Calcium Phosphorus Magnesium AST ALT Lactate Dehydrogenase Total Bilirubin Direct Bilirubin CK-MB (CK-2) C-Reactive Protein NT-Pro-B Natriuret Pep Total Protein Albumin Arterial Blood Glucose Urine WBC (Auto) Urine Creatinine 12/21/19 12/21/19 12/21/19 05:38 10:13 11:51 WBC RBC Hgb Hct MCHC RDW MCV MCH Lymph % (Auto) [place] % (Auto) [place] # Eos # Lymph # (Auto) [place] # (Auto) Eos # (Auto) Seg Neutrophils % Seg Neuts % (Manual) Baso # (Auto) Lymphocytes % (Manual) Monocytes % (Manual) Eosinophils % (Manual) Basophils % (Manual) Seg Neutrophils # Seg Neutrophils # Man Lymphocytes # (Manual) Monocytes # (Manual) Eosinophils # (Manual) Nucleated RBC % Basophils # (Manual) PT INR APTT 23.9 L Heparin Anti-Xa Level < 0.10 L ABG pH POC ABG pO2 ABG pO2 ABG HCO3 ABG O2 Saturation ABG Base Excess POC ABG pCO2 ABG Hemoglobin ABG Oxyhemoglobin ABG Sodium ABG Chloride ABG Glucose Oxyhemoglobin Sodium Potassium Chloride Carbon Dioxide BUN Creatinine Glucose POC Glucose 151 H 145 H Lactic Acid Calcium Phosphorus Magnesium AST ALT Lactate Dehydrogenase Total Bilirubin Direct Bilirubin CK-MB (CK-2) C-Reactive Protein NT-Pro-B Natriuret Pep Total Protein Albumin Arterial Blood Glucose Urine WBC (Auto) Urine Creatinine 12/21/19 12/22/19 12/22/19 17:16 00:01 01:33 WBC RBC Hgb Hct MCHC RDW MCV MCH Lymph % (Auto) [place] % (Auto) [place] # Eos # Lymph # (Auto) [place] # (Auto) Eos # (Auto) Seg Neutrophils % Seg Neuts % (Manual) Baso # (Auto) Lymphocytes % (Manual) Monocytes % (Manual) Eosinophils % (Manual) Basophils % (Manual) Seg Neutrophils # Seg Neutrophils # Man Lymphocytes # (Manual) Monocytes # (Manual) Eosinophils # (Manual) Nucleated RBC % Basophils # (Manual) PT INR APTT Heparin Anti-Xa Level 0.10 L ABG pH POC ABG pO2 ABG pO2 ABG HCO3 ABG O2 Saturation ABG Base Excess POC ABG pCO2 ABG Hemoglobin ABG Oxyhemoglobin ABG Sodium ABG Chloride ABG Glucose Oxyhemoglobin Sodium Potassium Chloride Carbon Dioxide BUN Creatinine Glucose POC Glucose 167 H 179 H Lactic Acid Calcium Phosphorus Magnesium AST ALT Lactate Dehydrogenase Total Bilirubin Direct Bilirubin CK-MB (CK-2) C-Reactive Protein NT-Pro-B Natriuret Pep Total Protein Albumin Arterial Blood Glucose Urine WBC (Auto) Urine Creatinine 12/22/19 12/22/19 12/22/19 03:22 05:10 05:10 WBC 13.8 H RBC 3.20 L Hgb 8.9 L Hct 28.1 L MCHC RDW 15.9 H MCV MCH Lymph % (Auto) [place] % (Auto) [place] # Eos # Lymph # (Auto) [place] # (Auto) Eos # (Auto) Seg Neutrophils % Seg Neuts % (Manual) Baso # (Auto) Lymphocytes % (Manual) Monocytes % (Manual) Eosinophils % (Manual) Basophils % (Manual) Seg Neutrophils # Seg Neutrophils # Man Lymphocytes # (Manual) Monocytes # (Manual) Eosinophils # (Manual) Nucleated RBC % Basophils # (Manual) PT INR APTT Heparin Anti-Xa Level ABG pH POC ABG pO2 52.3 L ABG pO2 ABG HCO3 ABG O2 Saturation ABG Base Excess POC ABG pCO2 52.9 H ABG Hemoglobin 10.7 L ABG Oxyhemoglobin 84 L ABG Sodium ABG Chloride ABG Glucose Oxyhemoglobin Sodium Potassium Chloride 96.6 L Carbon Dioxide BUN 25 H Creatinine 0.7 L Glucose 129 H POC Glucose Lactic Acid Calcium Phosphorus Magnesium AST ALT Lactate Dehydrogenase Total Bilirubin Direct Bilirubin CK-MB (CK-2) C-Reactive Protein NT-Pro-B Natriuret Pep Total Protein Albumin Arterial Blood Glucose Urine WBC (Auto) Urine Creatinine 12/22/19 12/22/19 12/22/19 05:18 12:32 12:43 WBC RBC Hgb Hct MCHC RDW MCV MCH Lymph % (Auto) [place] % (Auto) [place] # Eos # Lymph # (Auto) [place] # (Auto) Eos # (Auto) Seg Neutrophils % Seg Neuts % (Manual) Baso # (Auto) Lymphocytes % (Manual) Monocytes % (Manual) Eosinophils % (Manual) Basophils % (Manual) Seg Neutrophils # Seg Neutrophils # Man Lymphocytes # (Manual) Monocytes # (Manual) Eosinophils # (Manual) Nucleated RBC % Basophils # (Manual) PT INR APTT Heparin Anti-Xa Level 0.18 L ABG pH POC ABG pO2 ABG pO2 ABG HCO3 ABG O2 Saturation ABG Base Excess POC ABG pCO2 ABG Hemoglobin ABG Oxyhemoglobin ABG Sodium ABG Chloride ABG Glucose Oxyhemoglobin Sodium Potassium Chloride Carbon Dioxide BUN Creatinine Glucose POC Glucose 131 H 208 H Lactic Acid Calcium Phosphorus Magnesium AST ALT Lactate Dehydrogenase Total Bilirubin Direct Bilirubin CK-MB (CK-2) C-Reactive Protein NT-Pro-B Natriuret Pep Total Protein Albumin Arterial Blood Glucose Urine WBC (Auto) Urine Creatinine 12/22/19 12/22/19 12/23/19 17:44 23:20 03:51 WBC 15.2 H RBC 3.43 L Hgb 9.6 L Hct 30.3 L MCHC RDW 15.9 H MCV MCH Lymph % (Auto) [place] % (Auto) [place] # Eos # Lymph # (Auto) [place] # (Auto) Eos # (Auto) Seg Neutrophils % Seg Neuts % (Manual) Baso # (Auto) Lymphocytes % (Manual) Monocytes % (Manual) Eosinophils % (Manual) Basophils % (Manual) Seg Neutrophils # Seg Neutrophils # Man Lymphocytes # (Manual) Monocytes # (Manual) Eosinophils # (Manual) Nucleated RBC % Basophils # (Manual) PT INR APTT Heparin Anti-Xa Level ABG pH POC ABG pO2 ABG pO2 ABG HCO3 ABG O2 Saturation ABG Base Excess POC ABG pCO2 ABG Hemoglobin ABG Oxyhemoglobin ABG Sodium ABG Chloride ABG Glucose Oxyhemoglobin Sodium Potassium Chloride Carbon Dioxide BUN Creatinine Glucose POC Glucose 209 H 119 H Lactic Acid Calcium Phosphorus Magnesium AST ALT Lactate Dehydrogenase Total Bilirubin Direct Bilirubin CK-MB (CK-2) C-Reactive Protein NT-Pro-B Natriuret Pep Total Protein Albumin Arterial Blood Glucose Urine WBC (Auto) Urine Creatinine 12/23/19 12/23/19 12/23/19 03:51 05:31 12:09 WBC RBC Hgb Hct MCHC RDW MCV MCH Lymph % (Auto) [place] % (Auto) [place] # Eos # Lymph # (Auto) [place] # (Auto) Eos # (Auto) Seg Neutrophils % Seg Neuts % (Manual) Baso # (Auto) Lymphocytes % (Manual) Monocytes % (Manual) Eosinophils % (Manual) Basophils % (Manual) Seg Neutrophils # Seg Neutrophils # Man Lymphocytes # (Manual) Monocytes # (Manual) Eosinophils # (Manual) Nucleated RBC % Basophils # (Manual) PT INR APTT Heparin Anti-Xa Level ABG pH POC ABG pO2 ABG pO2 ABG HCO3 ABG O2 Saturation ABG Base Excess POC ABG pCO2 ABG Hemoglobin ABG Oxyhemoglobin ABG Sodium ABG Chloride ABG Glucose Oxyhemoglobin Sodium Potassium Chloride 97.2 L Carbon Dioxide 31 H BUN 23 H Creatinine 0.6 L Glucose 153 H POC Glucose 149 H 144 H Lactic Acid Calcium Phosphorus Magnesium AST ALT Lactate Dehydrogenase Total Bilirubin Direct Bilirubin CK-MB (CK-2) C-Reactive Protein NT-Pro-B Natriuret Pep Total Protein Albumin Arterial Blood Glucose Urine WBC (Auto) Urine Creatinine 12/23/19 12/23/19 12/23/19 15:30 17:49 23:31 WBC RBC Hgb Hct MCHC RDW MCV MCH Lymph % (Auto) [place] % (Auto) [place] # Eos # Lymph # (Auto) [place] # (Auto) Eos # (Auto) Seg Neutrophils % Seg Neuts % (Manual) Baso # (Auto) Lymphocytes % (Manual) Monocytes % (Manual) Eosinophils % (Manual) Basophils % (Manual) Seg Neutrophils # Seg Neutrophils # Man Lymphocytes # (Manual) Monocytes # (Manual) Eosinophils # (Manual) Nucleated RBC % Basophils # (Manual) PT INR APTT Heparin Anti-Xa Level 0.21 L ABG pH POC ABG pO2 ABG pO2 ABG HCO3 ABG O2 Saturation ABG Base Excess POC ABG pCO2 ABG Hemoglobin ABG Oxyhemoglobin ABG Sodium ABG Chloride ABG Glucose Oxyhemoglobin Sodium Potassium Chloride Carbon Dioxide BUN Creatinine Glucose POC Glucose 192 H 151 H Lactic Acid Calcium Phosphorus Magnesium AST ALT Lactate Dehydrogenase Total Bilirubin Direct Bilirubin CK-MB (CK-2) C-Reactive Protein NT-Pro-B Natriuret Pep Total Protein Albumin Arterial Blood Glucose Urine WBC (Auto) Urine Creatinine 12/24/19 12/24/19 12/24/19 05:34 12:13 16:50 WBC RBC Hgb Hct MCHC RDW MCV MCH Lymph % (Auto) [place] % (Auto) [place] # Eos # Lymph # (Auto) [place] # (Auto) Eos # (Auto) Seg Neutrophils % Seg Neuts % (Manual) Baso # (Auto) Lymphocytes % (Manual) Monocytes % (Manual) Eosinophils % (Manual) Basophils % (Manual) Seg Neutrophils # Seg Neutrophils # Man Lymphocytes # (Manual) Monocytes # (Manual) Eosinophils # (Manual) Nucleated RBC % Basophils # (Manual) PT INR APTT Heparin Anti-Xa Level 0.16 L ABG pH POC ABG pO2 ABG pO2 ABG HCO3 ABG O2 Saturation ABG Base Excess POC ABG pCO2 ABG Hemoglobin ABG Oxyhemoglobin ABG Sodium ABG Chloride ABG Glucose Oxyhemoglobin Sodium Potassium Chloride Carbon Dioxide BUN Creatinine Glucose POC Glucose 145 H 124 H Lactic Acid Calcium Phosphorus Magnesium AST ALT Lactate Dehydrogenase Total Bilirubin Direct Bilirubin CK-MB (CK-2) C-Reactive Protein NT-Pro-B Natriuret Pep Total Protein Albumin Arterial Blood Glucose Urine WBC (Auto) Urine Creatinine 12/24/19 12/25/19 12/25/19 17:53 00:14 04:18 WBC 12.9 H RBC 3.30 L Hgb 9.1 L Hct 28.8 L MCHC RDW 16.4 H MCV MCH Lymph % (Auto) [place] % (Auto) 7.8 H [place] # Eos # Lymph # (Auto) [place] # (Auto) 1.0 H Eos # (Auto) Seg Neutrophils % 75.5 H Seg Neuts % (Manual) Baso # (Auto) Lymphocytes % (Manual) Monocytes % (Manual) Eosinophils % (Manual) Basophils % (Manual) Seg Neutrophils # 9.7 H Seg Neutrophils # Man Lymphocytes # (Manual) Monocytes # (Manual) Eosinophils # (Manual) Nucleated RBC % Basophils # (Manual) PT INR APTT Heparin Anti-Xa Level ABG pH POC ABG pO2 ABG pO2 ABG HCO3 ABG O2 Saturation ABG Base Excess POC ABG pCO2 ABG Hemoglobin ABG Oxyhemoglobin ABG Sodium ABG Chloride ABG Glucose Oxyhemoglobin Sodium Potassium Chloride Carbon Dioxide BUN Creatinine Glucose POC Glucose 164 H 148 H Lactic Acid Calcium Phosphorus Magnesium AST ALT Lactate Dehydrogenase Total Bilirubin Direct Bilirubin CK-MB (CK-2) C-Reactive Protein NT-Pro-B Natriuret Pep Total Protein Albumin Arterial Blood Glucose Urine WBC (Auto) Urine Creatinine 12/25/19 12/25/19 12/25/19 04:18 05:38 11:44 WBC RBC Hgb Hct MCHC RDW MCV MCH Lymph % (Auto) [place] % (Auto) [place] # Eos # Lymph # (Auto) [place] # (Auto) Eos # (Auto) Seg Neutrophils % Seg Neuts % (Manual) Baso # (Auto) Lymphocytes % (Manual) Monocytes % (Manual) Eosinophils % (Manual) Basophils % (Manual) Seg Neutrophils # Seg Neutrophils # Man Lymphocytes # (Manual) Monocytes # (Manual) Eosinophils # (Manual) Nucleated RBC % Basophils # (Manual) PT INR APTT Heparin Anti-Xa Level ABG pH POC ABG pO2 ABG pO2 ABG HCO3 ABG O2 Saturation ABG Base Excess POC ABG pCO2 ABG Hemoglobin ABG Oxyhemoglobin ABG Sodium ABG Chloride ABG Glucose Oxyhemoglobin Sodium Potassium Chloride Carbon Dioxide 33 H BUN 27 H Creatinine 0.6 L Glucose 132 H POC Glucose 152 H 166 H Lactic Acid Calcium Phosphorus Magnesium AST ALT Lactate Dehydrogenase Total Bilirubin Direct Bilirubin CK-MB (CK-2) C-Reactive Protein NT-Pro-B Natriuret Pep Total Protein Albumin Arterial Blood Glucose Urine WBC (Auto) Urine Creatinine 12/25/19 12/26/19 12/26/19 18:29 00:17 00:18 WBC RBC Hgb Hct MCHC RDW MCV MCH Lymph % (Auto) [place] % (Auto) [place] # Eos # Lymph # (Auto) [place] # (Auto) Eos # (Auto) Seg Neutrophils % Seg Neuts % (Manual) Baso # (Auto) Lymphocytes % (Manual) Monocytes % (Manual) Eosinophils % (Manual) Basophils % (Manual) Seg Neutrophils # Seg Neutrophils # Man Lymphocytes # (Manual) Monocytes # (Manual) Eosinophils # (Manual) Nucleated RBC % Basophils # (Manual) PT INR APTT Heparin Anti-Xa Level ABG pH POC ABG pO2 ABG pO2 ABG HCO3 ABG O2 Saturation ABG Base Excess POC ABG pCO2 ABG Hemoglobin ABG Oxyhemoglobin ABG Sodium ABG Chloride ABG Glucose Oxyhemoglobin Sodium Potassium Chloride 97.8 L Carbon Dioxide BUN 25 H Creatinine 0.6 L Glucose 140 H POC Glucose 194 H 151 H Lactic Acid Calcium Phosphorus Magnesium AST ALT Lactate Dehydrogenase Total Bilirubin Direct Bilirubin CK-MB (CK-2) C-Reactive Protein NT-Pro-B Natriuret Pep Total Protein Albumin Arterial Blood Glucose Urine WBC (Auto) Urine Creatinine 12/26/19 12/26/19 12/26/19 05:36 11:41 17:50 WBC RBC Hgb Hct MCHC RDW MCV MCH Lymph % (Auto) [place] % (Auto) [place] # Eos # Lymph # (Auto) [place] # (Auto) Eos # (Auto) Seg Neutrophils % Seg Neuts % (Manual) Baso # (Auto) Lymphocytes % (Manual) Monocytes % (Manual) Eosinophils % (Manual) Basophils % (Manual) Seg Neutrophils # Seg Neutrophils # Man Lymphocytes # (Manual) Monocytes # (Manual) Eosinophils # (Manual) Nucleated RBC % Basophils # (Manual) PT INR APTT Heparin Anti-Xa Level ABG pH POC ABG pO2 ABG pO2 ABG HCO3 ABG O2 Saturation ABG Base Excess POC ABG pCO2 ABG Hemoglobin ABG Oxyhemoglobin ABG Sodium ABG Chloride ABG Glucose Oxyhemoglobin Sodium Potassium Chloride Carbon Dioxide BUN Creatinine Glucose POC Glucose 156 H 148 H 139 H Lactic Acid Calcium Phosphorus Magnesium AST ALT Lactate Dehydrogenase Total Bilirubin Direct Bilirubin CK-MB (CK-2) C-Reactive Protein NT-Pro-B Natriuret Pep Total Protein Albumin Arterial Blood Glucose Urine WBC (Auto) Urine Creatinine 12/26/19 12/27/19 12/27/19 23:19 05:34 12:02 WBC RBC Hgb Hct MCHC RDW MCV MCH Lymph % (Auto) [place] % (Auto) [place] # Eos # Lymph # (Auto) [place] # (Auto) Eos # (Auto) Seg Neutrophils % Seg Neuts % (Manual) Baso # (Auto) Lymphocytes % (Manual) Monocytes % (Manual) Eosinophils % (Manual) Basophils % (Manual) Seg Neutrophils # Seg Neutrophils # Man Lymphocytes # (Manual) Monocytes # (Manual) Eosinophils # (Manual) Nucleated RBC % Basophils # (Manual) PT INR APTT Heparin Anti-Xa Level ABG pH POC ABG pO2 ABG pO2 ABG HCO3 ABG O2 Saturation ABG Base Excess POC ABG pCO2 ABG Hemoglobin ABG Oxyhemoglobin ABG Sodium ABG Chloride ABG Glucose Oxyhemoglobin Sodium Potassium Chloride Carbon Dioxide BUN Creatinine Glucose POC Glucose 161 H 145 H 157 H Lactic Acid Calcium Phosphorus Magnesium AST ALT Lactate Dehydrogenase Total Bilirubin Direct Bilirubin CK-MB (CK-2) C-Reactive Protein NT-Pro-B Natriuret Pep Total Protein Albumin Arterial Blood Glucose Urine WBC (Auto) Urine Creatinine 12/27/19 12/27/19 12/27/19 17:35 20:11 23:00 WBC RBC Hgb Hct MCHC RDW MCV MCH Lymph % (Auto) [place] % (Auto) [place] # Eos # Lymph # (Auto) [place] # (Auto) Eos # (Auto) Seg Neutrophils % Seg Neuts % (Manual) Baso # (Auto) Lymphocytes % (Manual) Monocytes % (Manual) Eosinophils % (Manual) Basophils % (Manual) Seg Neutrophils # Seg Neutrophils # Man Lymphocytes # (Manual) Monocytes # (Manual) Eosinophils # (Manual) Nucleated RBC % Basophils # (Manual) PT INR APTT Heparin Anti-Xa Level 0.19 L ABG pH POC ABG pO2 ABG pO2 ABG HCO3 ABG O2 Saturation ABG Base Excess POC ABG pCO2 ABG Hemoglobin ABG Oxyhemoglobin ABG Sodium ABG Chloride ABG Glucose Oxyhemoglobin Sodium Potassium Chloride Carbon Dioxide BUN Creatinine Glucose POC Glucose 158 H 155 H Lactic Acid Calcium Phosphorus Magnesium AST ALT Lactate Dehydrogenase Total Bilirubin Direct Bilirubin CK-MB (CK-2) C-Reactive Protein NT-Pro-B Natriuret Pep Total Protein Albumin Arterial Blood Glucose Urine WBC (Auto) Urine Creatinine 12/27/19 12/28/19 12/28/19 23:45 02:41 02:41 WBC 13.0 H RBC 3.48 L Hgb 9.5 L Hct 30.6 L MCHC 31 L RDW 16.6 H MCV MCH 27 L Lymph % (Auto) 13.0 L [place] % (Auto) 8.0 H [place] # Eos # Lymph # (Auto) [place] # (Auto) 1.0 H Eos # (Auto) Seg Neutrophils % 76.3 H Seg Neuts % (Manual) Baso # (Auto) Lymphocytes % (Manual) Monocytes % (Manual) Eosinophils % (Manual) Basophils % (Manual) Seg Neutrophils # 9.9 H Seg Neutrophils # Man Lymphocytes # (Manual) Monocytes # (Manual) Eosinophils # (Manual) Nucleated RBC % Basophils # (Manual) PT INR APTT Heparin Anti-Xa Level ABG pH POC ABG pO2 ABG pO2 ABG HCO3 ABG O2 Saturation ABG Base Excess POC ABG pCO2 ABG Hemoglobin ABG Oxyhemoglobin ABG Sodium ABG Chloride ABG Glucose Oxyhemoglobin Sodium Potassium Chloride Carbon Dioxide BUN 22 H Creatinine 0.6 L Glucose 101 H POC Glucose 130 H Lactic Acid Calcium Phosphorus Magnesium AST ALT Lactate Dehydrogenase Total Bilirubin Direct Bilirubin CK-MB (CK-2) C-Reactive Protein NT-Pro-B Natriuret Pep Total Protein Albumin Arterial Blood Glucose Urine WBC (Auto) Urine Creatinine 12/28/19 12/28/19 12/28/19 06:00 12:34 18:13 WBC RBC Hgb Hct MCHC RDW MCV MCH Lymph % (Auto) [place] % (Auto) [place] # Eos # Lymph # (Auto) [place] # (Auto) Eos # (Auto) Seg Neutrophils % Seg Neuts % (Manual) Baso # (Auto) Lymphocytes % (Manual) Monocytes % (Manual) Eosinophils % (Manual) Basophils % (Manual) Seg Neutrophils # Seg Neutrophils # Man Lymphocytes # (Manual) Monocytes # (Manual) Eosinophils # (Manual) Nucleated RBC % Basophils # (Manual) PT INR APTT Heparin Anti-Xa Level ABG pH POC ABG pO2 ABG pO2 ABG HCO3 ABG O2 Saturation ABG Base Excess POC ABG pCO2 ABG Hemoglobin ABG Oxyhemoglobin ABG Sodium ABG Chloride ABG Glucose Oxyhemoglobin Sodium Potassium Chloride Carbon Dioxide BUN Creatinine Glucose POC Glucose 150 H 161 H 128 H Lactic Acid Calcium Phosphorus Magnesium AST ALT Lactate Dehydrogenase Total Bilirubin Direct Bilirubin CK-MB (CK-2) C-Reactive Protein NT-Pro-B Natriuret Pep Total Protein Albumin Arterial Blood Glucose Urine WBC (Auto) Urine Creatinine 12/28/19 12/29/19 12/29/19 23:36 05:21 11:40 WBC RBC Hgb Hct MCHC RDW MCV MCH Lymph % (Auto) [place] % (Auto) [place] # Eos # Lymph # (Auto) [place] # (Auto) Eos # (Auto) Seg Neutrophils % Seg Neuts % (Manual) Baso # (Auto) Lymphocytes % (Manual) Monocytes % (Manual) Eosinophils % (Manual) Basophils % (Manual) Seg Neutrophils # Seg Neutrophils # Man Lymphocytes # (Manual) Monocytes # (Manual) Eosinophils # (Manual) Nucleated RBC % Basophils # (Manual) PT INR APTT Heparin Anti-Xa Level ABG pH POC ABG pO2 ABG pO2 ABG HCO3 ABG O2 Saturation ABG Base Excess POC ABG pCO2 ABG Hemoglobin ABG Oxyhemoglobin ABG Sodium ABG Chloride ABG Glucose Oxyhemoglobin Sodium Potassium Chloride Carbon Dioxide BUN Creatinine Glucose POC Glucose 137 H 136 H 166 H Lactic Acid Calcium Phosphorus Magnesium AST ALT Lactate Dehydrogenase Total Bilirubin Direct Bilirubin CK-MB (CK-2) C-Reactive Protein NT-Pro-B Natriuret Pep Total Protein Albumin Arterial Blood Glucose Urine WBC (Auto) Urine Creatinine 12/29/19 12/29/19 12/29/19 17:23 19:21 23:38 WBC RBC Hgb Hct MCHC RDW MCV MCH Lymph % (Auto) [place] % (Auto) [place] # Eos # Lymph # (Auto) [place] # (Auto) Eos # (Auto) Seg Neutrophils % Seg Neuts % (Manual) Baso # (Auto) Lymphocytes % (Manual) Monocytes % (Manual) Eosinophils % (Manual) Basophils % (Manual) Seg Neutrophils # Seg Neutrophils # Man Lymphocytes # (Manual) Monocytes # (Manual) Eosinophils # (Manual) Nucleated RBC % Basophils # (Manual) PT INR APTT Heparin Anti-Xa Level 0.20 L ABG pH POC ABG pO2 ABG pO2 ABG HCO3 ABG O2 Saturation ABG Base Excess POC ABG pCO2 ABG Hemoglobin ABG Oxyhemoglobin ABG Sodium ABG Chloride ABG Glucose Oxyhemoglobin Sodium Potassium Chloride Carbon Dioxide BUN Creatinine Glucose POC Glucose 144 H 141 H Lactic Acid Calcium Phosphorus Magnesium AST ALT Lactate Dehydrogenase Total Bilirubin Direct Bilirubin CK-MB (CK-2) C-Reactive Protein NT-Pro-B Natriuret Pep Total Protein Albumin Arterial Blood Glucose Urine WBC (Auto) Urine Creatinine 12/30/19 12/30/19 12/30/19 03:58 03:58 04:59 WBC RBC 3.54 L Hgb 9.8 L Hct 30.7 L MCHC RDW 16.8 H MCV MCH Lymph % (Auto) [place] % (Auto) [place] # Eos # Lymph # (Auto) [place] # (Auto) Eos # (Auto) Seg Neutrophils % Seg Neuts % (Manual) Baso # (Auto) Lymphocytes % (Manual) Monocytes % (Manual) Eosinophils % (Manual) Basophils % (Manual) Seg Neutrophils # Seg Neutrophils # Man Lymphocytes # (Manual) Monocytes # (Manual) Eosinophils # (Manual) Nucleated RBC % Basophils # (Manual) PT INR APTT Heparin Anti-Xa Level ABG pH POC ABG pO2 ABG pO2 ABG HCO3 29.8 H ABG O2 Saturation ABG Base Excess 4.8 H POC ABG pCO2 ABG Hemoglobin 11.2 L ABG Oxyhemoglobin ABG Sodium ABG Chloride ABG Glucose Oxyhemoglobin 93.8 L Sodium Potassium Chloride 97.8 L Carbon Dioxide BUN 26 H Creatinine Glucose 168 H POC Glucose Lactic Acid Calcium Phosphorus Magnesium AST ALT Lactate Dehydrogenase Total Bilirubin Direct Bilirubin CK-MB (CK-2) C-Reactive Protein NT-Pro-B Natriuret Pep Total Protein Albumin Arterial Blood Glucose Urine WBC (Auto) Urine Creatinine 12/30/19 12/30/19 12/30/19 05:45 11:34 17:28 WBC RBC Hgb Hct MCHC RDW MCV MCH Lymph % (Auto) [place] % (Auto) [place] # Eos # Lymph # (Auto) [place] # (Auto) Eos # (Auto) Seg Neutrophils % Seg Neuts % (Manual) Baso # (Auto) Lymphocytes % (Manual) Monocytes % (Manual) Eosinophils % (Manual) Basophils % (Manual) Seg Neutrophils # Seg Neutrophils # Man Lymphocytes # (Manual) Monocytes # (Manual) Eosinophils # (Manual) Nucleated RBC % Basophils # (Manual) PT INR APTT Heparin Anti-Xa Level ABG pH POC ABG pO2 ABG pO2 ABG HCO3 ABG O2 Saturation ABG Base Excess POC ABG pCO2 ABG Hemoglobin ABG Oxyhemoglobin ABG Sodium ABG Chloride ABG Glucose Oxyhemoglobin Sodium Potassium Chloride Carbon Dioxide BUN Creatinine Glucose POC Glucose 163 H 180 H 150 H Lactic Acid Calcium Phosphorus Magnesium AST ALT Lactate Dehydrogenase Total Bilirubin Direct Bilirubin CK-MB (CK-2) C-Reactive Protein NT-Pro-B Natriuret Pep Total Protein Albumin Arterial Blood Glucose Urine WBC (Auto) Urine Creatinine 12/30/19 12/31/19 12/31/19 23:43 04:55 05:07 WBC RBC Hgb Hct MCHC RDW MCV MCH Lymph % (Auto) [place] % (Auto) [place] # Eos # Lymph # (Auto) [place] # (Auto) Eos # (Auto) Seg Neutrophils % Seg Neuts % (Manual) Baso # (Auto) Lymphocytes % (Manual) Monocytes % (Manual) Eosinophils % (Manual) Basophils % (Manual) Seg Neutrophils # Seg Neutrophils # Man Lymphocytes # (Manual) Monocytes # (Manual) Eosinophils # (Manual) Nucleated RBC % Basophils # (Manual) PT INR APTT Heparin Anti-Xa Level ABG pH POC ABG pO2 ABG pO2 ABG HCO3 ABG O2 Saturation ABG Base Excess POC ABG pCO2 ABG Hemoglobin ABG Oxyhemoglobin ABG Sodium ABG Chloride ABG Glucose Oxyhemoglobin Sodium Potassium 5.6 H D Chloride Carbon Dioxide BUN 33 H Creatinine Glucose 131 H POC Glucose 142 H 134 H Lactic Acid Calcium Phosphorus Magnesium AST ALT Lactate Dehydrogenase Total Bilirubin Direct Bilirubin CK-MB (CK-2) C-Reactive Protein NT-Pro-B Natriuret Pep Total Protein Albumin Arterial Blood Glucose Urine WBC (Auto) Urine Creatinine 12/31/19 12/31/19 12/31/19 11:30 17:19 17:36 WBC RBC Hgb Hct MCHC RDW MCV MCH Lymph % (Auto) [place] % (Auto) [place] # Eos # Lymph # (Auto) [place] # (Auto) Eos # (Auto) Seg Neutrophils % Seg Neuts % (Manual) Baso # (Auto) Lymphocytes % (Manual) Monocytes % (Manual) Eosinophils % (Manual) Basophils % (Manual) Seg Neutrophils # Seg Neutrophils # Man Lymphocytes # (Manual) Monocytes # (Manual) Eosinophils # (Manual) Nucleated RBC % Basophils # (Manual) PT INR APTT Heparin Anti-Xa Level ABG pH POC ABG pO2 ABG pO2 ABG HCO3 ABG O2 Saturation ABG Base Excess POC ABG pCO2 ABG Hemoglobin ABG Oxyhemoglobin ABG Sodium ABG Chloride ABG Glucose Oxyhemoglobin Sodium Potassium Chloride Carbon Dioxide BUN 35 H Creatinine Glucose 156 H POC Glucose 158 H 181 H Lactic Acid Calcium Phosphorus Magnesium AST ALT Lactate Dehydrogenase Total Bilirubin Direct Bilirubin CK-MB (CK-2) C-Reactive Protein NT-Pro-B Natriuret Pep Total Protein Albumin Arterial Blood Glucose Urine WBC (Auto) Urine Creatinine 12/31/19 12/31/19 12/31/19 18:16 19:41 21:53 WBC RBC Hgb Hct MCHC RDW MCV MCH Lymph % (Auto) [place] % (Auto) [place] # Eos # Lymph # (Auto) [place] # (Auto) Eos # (Auto) Seg Neutrophils % Seg Neuts % (Manual) Baso # (Auto) Lymphocytes % (Manual) Monocytes % (Manual) Eosinophils % (Manual) Basophils % (Manual) Seg Neutrophils # Seg Neutrophils # Man Lymphocytes # (Manual) Monocytes # (Manual) Eosinophils # (Manual) Nucleated RBC % Basophils # (Manual) PT INR APTT Heparin Anti-Xa Level 0.20 L ABG pH POC ABG pO2 ABG pO2 ABG HCO3 ABG O2 Saturation ABG Base Excess POC ABG pCO2 ABG Hemoglobin ABG Oxyhemoglobin ABG Sodium ABG Chloride ABG Glucose Oxyhemoglobin Sodium Potassium Chloride Carbon Dioxide BUN 34 H Creatinine Glucose 169 H POC Glucose 141 H Lactic Acid Calcium Phosphorus Magnesium AST ALT Lactate Dehydrogenase Total Bilirubin Direct Bilirubin CK-MB (CK-2) C-Reactive Protein NT-Pro-B Natriuret Pep Total Protein Albumin Arterial Blood Glucose Urine WBC (Auto) Urine Creatinine 12/31/19 01/01/20 01/01/20 23:51 05:17 10:40 WBC RBC Hgb Hct MCHC RDW MCV MCH Lymph % (Auto) [place] % (Auto) [place] # Eos # Lymph # (Auto) [place] # (Auto) Eos # (Auto) Seg Neutrophils % Seg Neuts % (Manual) Baso # (Auto) Lymphocytes % (Manual) Monocytes % (Manual) Eosinophils % (Manual) Basophils % (Manual) Seg Neutrophils # Seg Neutrophils # Man Lymphocytes # (Manual) Monocytes # (Manual) Eosinophils # (Manual) Nucleated RBC % Basophils # (Manual) PT INR APTT Heparin Anti-Xa Level ABG pH POC ABG pO2 ABG pO2 ABG HCO3 ABG O2 Saturation ABG Base Excess POC ABG pCO2 ABG Hemoglobin ABG Oxyhemoglobin ABG Sodium ABG Chloride ABG Glucose Oxyhemoglobin Sodium Potassium Chloride Carbon Dioxide BUN 31 H Creatinine 0.7 L Glucose 137 H POC Glucose 131 H 155 H Lactic Acid Calcium Phosphorus Magnesium AST 73 H ALT 97 H Lactate Dehydrogenase Total Bilirubin Direct Bilirubin CK-MB (CK-2) C-Reactive Protein NT-Pro-B Natriuret Pep 3866 H Total Protein Albumin 2.8 L Arterial Blood Glucose Urine WBC (Auto) Urine Creatinine 01/01/20 01/01/20 01/01/20 12:26 15:33 17:53 WBC 14.3 H RBC 3.35 L Hgb 9.1 L Hct 28.8 L MCHC RDW 17.0 H MCV MCH 27 L Lymph % (Auto) 7.0 L [place] % (Auto) 7.6 H [place] # Eos # Lymph # (Auto) 1.0 L [place] # (Auto) 1.1 H Eos # (Auto) Seg Neutrophils % 83.3 H Seg Neuts % (Manual) Baso # (Auto) Lymphocytes % (Manual) Monocytes % (Manual) Eosinophils % (Manual) Basophils % (Manual) Seg Neutrophils # 12.0 H Seg Neutrophils # Man Lymphocytes # (Manual) Monocytes # (Manual) Eosinophils # (Manual) Nucleated RBC % Basophils # (Manual) PT INR APTT Heparin Anti-Xa Level ABG pH POC ABG pO2 ABG pO2 ABG HCO3 ABG O2 Saturation ABG Base Excess POC ABG pCO2 ABG Hemoglobin ABG Oxyhemoglobin ABG Sodium ABG Chloride ABG Glucose Oxyhemoglobin Sodium Potassium Chloride Carbon Dioxide BUN Creatinine Glucose POC Glucose 128 H 128 H Lactic Acid Calcium Phosphorus Magnesium AST ALT Lactate Dehydrogenase Total Bilirubin Direct Bilirubin CK-MB (CK-2) C-Reactive Protein NT-Pro-B Natriuret Pep Total Protein Albumin Arterial Blood Glucose Urine WBC (Auto) Urine Creatinine 01/01/20 01/02/20 01/02/20 23:04 05:39 07:00 WBC RBC Hgb Hct MCHC RDW MCV MCH Lymph % (Auto) [place] % (Auto) [place] # Eos # Lymph # (Auto) [place] # (Auto) Eos # (Auto) Seg Neutrophils % Seg Neuts % (Manual) Baso # (Auto) Lymphocytes % (Manual) Monocytes % (Manual) Eosinophils % (Manual) Basophils % (Manual) Seg Neutrophils # Seg Neutrophils # Man Lymphocytes # (Manual) Monocytes # (Manual) Eosinophils # (Manual) Nucleated RBC % Basophils # (Manual) PT INR APTT Heparin Anti-Xa Level 0.13 L ABG pH POC ABG pO2 ABG pO2 ABG HCO3 ABG O2 Saturation ABG Base Excess POC ABG pCO2 ABG Hemoglobin ABG Oxyhemoglobin ABG Sodium ABG Chloride ABG Glucose Oxyhemoglobin Sodium Potassium Chloride Carbon Dioxide BUN Creatinine Glucose POC Glucose 120 H 169 H Lactic Acid Calcium Phosphorus Magnesium AST ALT Lactate Dehydrogenase Total Bilirubin Direct Bilirubin CK-MB (CK-2) C-Reactive Protein NT-Pro-B Natriuret Pep Total Protein Albumin Arterial Blood Glucose Urine WBC (Auto) Urine Creatinine 01/02/20 01/02/20 01/02/20 12:15 14:06 17:58 WBC RBC Hgb Hct MCHC RDW MCV MCH Lymph % (Auto) [place] % (Auto) [place] # Eos # Lymph # (Auto) [place] # (Auto) Eos # (Auto) Seg Neutrophils % Seg Neuts % (Manual) Baso # (Auto) Lymphocytes % (Manual) Monocytes % (Manual) Eosinophils % (Manual) Basophils % (Manual) Seg Neutrophils # Seg Neutrophils # Man Lymphocytes # (Manual) Monocytes # (Manual) Eosinophils # (Manual) Nucleated RBC % Basophils # (Manual) PT INR APTT Heparin Anti-Xa Level < 0.10 L ABG pH POC ABG pO2 ABG pO2 ABG HCO3 ABG O2 Saturation ABG Base Excess POC ABG pCO2 ABG Hemoglobin ABG Oxyhemoglobin ABG Sodium ABG Chloride ABG Glucose Oxyhemoglobin Sodium Potassium Chloride Carbon Dioxide BUN Creatinine Glucose POC Glucose 190 H 198 H Lactic Acid Calcium Phosphorus Magnesium AST ALT Lactate Dehydrogenase Total Bilirubin Direct Bilirubin CK-MB (CK-2) C-Reactive Protein NT-Pro-B Natriuret Pep Total Protein Albumin Arterial Blood Glucose Urine WBC (Auto) Urine Creatinine 01/02/20 01/02/20 01/03/20 21:43 23:33 05:42 WBC RBC Hgb Hct MCHC RDW MCV MCH Lymph % (Auto) [place] % (Auto) [place] # Eos # Lymph # (Auto) [place] # (Auto) Eos # (Auto) Seg Neutrophils % Seg Neuts % (Manual) Baso # (Auto) Lymphocytes % (Manual) Monocytes % (Manual) Eosinophils % (Manual) Basophils % (Manual) Seg Neutrophils # Seg Neutrophils # Man Lymphocytes # (Manual) Monocytes # (Manual) Eosinophils # (Manual) Nucleated RBC % Basophils # (Manual) PT INR APTT Heparin Anti-Xa Level 0.10 L ABG pH POC ABG pO2 ABG pO2 ABG HCO3 ABG O2 Saturation ABG Base Excess POC ABG pCO2 ABG Hemoglobin ABG Oxyhemoglobin ABG Sodium ABG Chloride ABG Glucose Oxyhemoglobin Sodium Potassium Chloride Carbon Dioxide BUN Creatinine Glucose POC Glucose 180 H 163 H Lactic Acid Calcium Phosphorus Magnesium AST ALT Lactate Dehydrogenase Total Bilirubin Direct Bilirubin CK-MB (CK-2) C-Reactive Protein NT-Pro-B Natriuret Pep Total Protein Albumin Arterial Blood Glucose Urine WBC (Auto) Urine Creatinine 01/03/20 01/03/20 01/03/20 06:50 07:25 07:45 WBC 12.1 H RBC 3.35 L Hgb 9.0 L Hct 28.9 L MCHC 31 L RDW 16.6 H MCV MCH 27 L Lymph % (Auto) 13.0 L [place] % (Auto) 8.6 H [place] # Eos # Lymph # (Auto) [place] # (Auto) 1.0 H Eos # (Auto) Seg Neutrophils % 75.9 H Seg Neuts % (Manual) Baso # (Auto) Lymphocytes % (Manual) Monocytes % (Manual) Eosinophils % (Manual) Basophils % (Manual) Seg Neutrophils # 9.2 H Seg Neutrophils # Man Lymphocytes # (Manual) Monocytes # (Manual) Eosinophils # (Manual) Nucleated RBC % Basophils # (Manual) PT INR APTT Heparin Anti-Xa Level 0.29 L ABG pH POC ABG pO2 ABG pO2 ABG HCO3 ABG O2 Saturation ABG Base Excess POC ABG pCO2 ABG Hemoglobin ABG Oxyhemoglobin ABG Sodium ABG Chloride ABG Glucose Oxyhemoglobin Sodium Potassium 3.3 L D Chloride Carbon Dioxide 35 H D BUN 23 H Creatinine 0.6 L Glucose 149 H POC Glucose Lactic Acid Calcium Phosphorus Magnesium AST ALT 88 H Lactate Dehydrogenase Total Bilirubin Direct Bilirubin CK-MB (CK-2) C-Reactive Protein NT-Pro-B Natriuret Pep Total Protein 6.2 L Albumin 2.9 L Arterial Blood Glucose Urine WBC (Auto) Urine Creatinine 01/03/20 01/03/20 01/03/20 12:05 17:42 18:30 WBC RBC Hgb Hct MCHC RDW MCV MCH Lymph % (Auto) [place] % (Auto) [place] # Eos # Lymph # (Auto) [place] # (Auto) Eos # (Auto) Seg Neutrophils % Seg Neuts % (Manual) Baso # (Auto) Lymphocytes % (Manual) Monocytes % (Manual) Eosinophils % (Manual) Basophils % (Manual) Seg Neutrophils # Seg Neutrophils # Man Lymphocytes # (Manual) Monocytes # (Manual) Eosinophils # (Manual) Nucleated RBC % Basophils # (Manual) PT INR APTT Heparin Anti-Xa Level ABG pH POC ABG pO2 ABG pO2 70.7 L ABG HCO3 36.1 H ABG O2 Saturation 94.4 L ABG Base Excess 10.0 H POC ABG pCO2 ABG Hemoglobin 9.7 L ABG Oxyhemoglobin ABG Sodium ABG Chloride ABG Glucose Oxyhemoglobin 91.8 L Sodium Potassium Chloride Carbon Dioxide BUN Creatinine Glucose POC Glucose 128 H 132 H Lactic Acid Calcium Phosphorus Magnesium AST ALT Lactate Dehydrogenase Total Bilirubin Direct Bilirubin CK-MB (CK-2) C-Reactive Protein NT-Pro-B Natriuret Pep Total Protein Albumin Arterial Blood Glucose Urine WBC (Auto) Urine Creatinine 01/04/20 01/04/20 01/04/20 00:10 04:26 05:23 WBC RBC Hgb Hct MCHC RDW MCV MCH Lymph % (Auto) [place] % (Auto) [place] # Eos # Lymph # (Auto) [place] # (Auto) Eos # (Auto) Seg Neutrophils % Seg Neuts % (Manual) Baso # (Auto) Lymphocytes % (Manual) Monocytes % (Manual) Eosinophils % (Manual) Basophils % (Manual) Seg Neutrophils # Seg Neutrophils # Man Lymphocytes # (Manual) Monocytes # (Manual) Eosinophils # (Manual) Nucleated RBC % Basophils # (Manual) PT INR APTT Heparin Anti-Xa Level 0.16 L ABG pH POC ABG pO2 ABG pO2 ABG HCO3 ABG O2 Saturation ABG Base Excess POC ABG pCO2 ABG Hemoglobin ABG Oxyhemoglobin ABG Sodium ABG Chloride ABG Glucose Oxyhemoglobin Sodium Potassium Chloride Carbon Dioxide BUN Creatinine Glucose POC Glucose 121 H 119 H Lactic Acid Calcium Phosphorus Magnesium AST ALT Lactate Dehydrogenase Total Bilirubin Direct Bilirubin CK-MB (CK-2) C-Reactive Protein NT-Pro-B Natriuret Pep Total Protein Albumin Arterial Blood Glucose Urine WBC (Auto) Urine Creatinine 01/04/20 01/04/20 01/04/20 09:50 09:50 12:18 WBC 15.4 H RBC 3.30 L Hgb 8.7 L Hct 28.2 L MCHC 31 L RDW 17.0 H MCV MCH 26 L Lymph % (Auto) [place] % (Auto) 7.6 H [place] # Eos # Lymph # (Auto) [place] # (Auto) 1.2 H Eos # (Auto) Seg Neutrophils % 75.4 H Seg Neuts % (Manual) Baso # (Auto) Lymphocytes % (Manual) Monocytes % (Manual) Eosinophils % (Manual) Basophils % (Manual) Seg Neutrophils # 11.6 H Seg Neutrophils # Man Lymphocytes # (Manual) Monocytes # (Manual) Eosinophils # (Manual) Nucleated RBC % Basophils # (Manual) PT INR APTT Heparin Anti-Xa Level ABG pH POC ABG pO2 ABG pO2 ABG HCO3 ABG O2 Saturation ABG Base Excess POC ABG pCO2 ABG Hemoglobin ABG Oxyhemoglobin ABG Sodium ABG Chloride ABG Glucose Oxyhemoglobin Sodium 148 H Potassium 3.5 L Chloride Carbon Dioxide 32 H BUN Creatinine 0.6 L Glucose 114 H POC Glucose 111 H Lactic Acid Calcium Phosphorus Magnesium AST ALT 59 H Lactate Dehydrogenase Total Bilirubin Direct Bilirubin CK-MB (CK-2) C-Reactive Protein NT-Pro-B Natriuret Pep Total Protein Albumin 2.6 L Arterial Blood Glucose Urine WBC (Auto) Urine Creatinine 01/05/20 01/05/20 01/05/20 04:05 04:05 05:19 WBC 11.7 H RBC 3.50 L Hgb 9.3 L Hct 29.9 L MCHC 31 L RDW 16.6 H MCV MCH 27 L Lymph % (Auto) 13.1 L [place] % (Auto) 9.7 H [place] # Eos # Lymph # (Auto) [place] # (Auto) 1.1 H Eos # (Auto) Seg Neutrophils % 74.0 H Seg Neuts % (Manual) Baso # (Auto) Lymphocytes % (Manual) Monocytes % (Manual) Eosinophils % (Manual) Basophils % (Manual) Seg Neutrophils # 8.6 H Seg Neutrophils # Man Lymphocytes # (Manual) Monocytes # (Manual) Eosinophils # (Manual) Nucleated RBC % Basophils # (Manual) PT INR APTT Heparin Anti-Xa Level ABG pH POC ABG pO2 ABG pO2 ABG HCO3 ABG O2 Saturation ABG Base Excess POC ABG pCO2 ABG Hemoglobin ABG Oxyhemoglobin ABG Sodium ABG Chloride ABG Glucose Oxyhemoglobin Sodium 151 H Potassium Chloride Carbon Dioxide 34 H BUN Creatinine 0.7 L Glucose POC Glucose 112 H Lactic Acid Calcium Phosphorus Magnesium AST ALT 59 H Lactate Dehydrogenase Total Bilirubin Direct Bilirubin CK-MB (CK-2) C-Reactive Protein NT-Pro-B Natriuret Pep Total Protein 5.8 L Albumin 2.6 L Arterial Blood Glucose Urine WBC (Auto) Urine Creatinine 01/05/20 01/06/20 01/06/20 16:04 00:23 04:44 WBC RBC 3.36 L Hgb 8.9 L Hct 28.7 L MCHC 31 L RDW 16.9 H MCV MCH 26 L Lymph % (Auto) Waldo % (Auto) 9.4 H Waldo # Eos # Lymph # (Auto) Waldo # (Auto) Eos # (Auto) Seg Neutrophils % Seg Neuts % (Manual) Baso # (Auto) Lymphocytes % (Manual) Monocytes % (Manual) Eosinophils % (Manual) Basophils % (Manual) Seg Neutrophils # Seg Neutrophils # Man Lymphocytes # (Manual) Monocytes # (Manual) Eosinophils # (Manual) Nucleated RBC % Basophils # (Manual) PT INR APTT Heparin Anti-Xa Level ABG pH POC ABG pO2 ABG pO2 ABG HCO3 ABG O2 Saturation ABG Base Excess POC ABG pCO2 ABG Hemoglobin ABG Oxyhemoglobin ABG Sodium ABG Chloride ABG Glucose Oxyhemoglobin Sodium 151 H Potassium 3.2 L Chloride Carbon Dioxide 34 H BUN Creatinine 0.6 L Glucose POC Glucose 107 H Lactic Acid Calcium Phosphorus Magnesium AST ALT Lactate Dehydrogenase Total Bilirubin Direct Bilirubin CK-MB (CK-2) C-Reactive Protein NT-Pro-B Natriuret Pep Total Protein Albumin Arterial Blood Glucose Urine WBC (Auto) Urine Creatinine 01/06/20 01/06/20 01/06/20 04:44 05:33 12:04 WBC RBC Hgb Hct MCHC RDW MCV MCH Lymph % (Auto) [place] % (Auto) [place] # Eos # Lymph # (Auto) [place] # (Auto) Eos # (Auto) Seg Neutrophils % Seg Neuts % (Manual) Baso # (Auto) Lymphocytes % (Manual) Monocytes % (Manual) Eosinophils % (Manual) Basophils % (Manual) Seg Neutrophils # Seg Neutrophils # Man Lymphocytes # (Manual) Monocytes # (Manual) Eosinophils # (Manual) Nucleated RBC % Basophils # (Manual) PT INR APTT Heparin Anti-Xa Level ABG pH POC ABG pO2 ABG pO2 ABG HCO3 ABG O2 Saturation ABG Base Excess POC ABG pCO2 ABG Hemoglobin ABG Oxyhemoglobin ABG Sodium ABG Chloride ABG Glucose Oxyhemoglobin Sodium 151 H Potassium 3.4 L Chloride Carbon Dioxide 33 H BUN Creatinine 0.6 L Glucose 118 H POC Glucose 118 H 123 H Lactic Acid Calcium Phosphorus Magnesium AST ALT Lactate Dehydrogenase Total Bilirubin Direct Bilirubin CK-MB (CK-2) C-Reactive Protein NT-Pro-B Natriuret Pep Total Protein 6.2 L Albumin 2.6 L Arterial Blood Glucose Urine WBC (Auto) Urine Creatinine 01/06/20 01/07/20 01/07/20 17:54 00:06 04:10 WBC RBC 3.42 L Hgb 8.9 L Hct 29.0 L MCHC 31 L RDW 17.1 H MCV MCH 26 L Lymph % (Auto) [place] % (Auto) 8.4 H [place] # Eos # Lymph # (Auto) [place] # (Auto) Eos # (Auto) Seg Neutrophils % Seg Neuts % (Manual) Baso # (Auto) Lymphocytes % (Manual) Monocytes % (Manual) Eosinophils % (Manual) Basophils % (Manual) Seg Neutrophils # Seg Neutrophils # Man Lymphocytes # (Manual) Monocytes # (Manual) Eosinophils # (Manual) Nucleated RBC % Basophils # (Manual) PT INR APTT Heparin Anti-Xa Level ABG pH POC ABG pO2 ABG pO2 ABG HCO3 ABG O2 Saturation ABG Base Excess POC ABG pCO2 ABG Hemoglobin ABG Oxyhemoglobin ABG Sodium ABG Chloride ABG Glucose Oxyhemoglobin Sodium Potassium Chloride Carbon Dioxide BUN Creatinine Glucose POC Glucose 112 H 126 H Lactic Acid Calcium Phosphorus Magnesium AST ALT Lactate Dehydrogenase Total Bilirubin Direct Bilirubin CK-MB (CK-2) C-Reactive Protein NT-Pro-B Natriuret Pep Total Protein Albumin Arterial Blood Glucose Urine WBC (Auto) Urine Creatinine 01/07/20 01/07/20 01/07/20 04:10 05:59 12:27 WBC RBC Hgb Hct MCHC RDW MCV MCH Lymph % (Auto) [place] % (Auto) [place] # Eos # Lymph # (Auto) [place] # (Auto) Eos # (Auto) Seg Neutrophils % Seg Neuts % (Manual) Baso # (Auto) Lymphocytes % (Manual) Monocytes % (Manual) Eosinophils % (Manual) Basophils % (Manual) Seg Neutrophils # Seg Neutrophils # Man Lymphocytes # (Manual) Monocytes # (Manual) Eosinophils # (Manual) Nucleated RBC % Basophils # (Manual) PT INR APTT Heparin Anti-Xa Level ABG pH POC ABG pO2 ABG pO2 ABG HCO3 ABG O2 Saturation ABG Base Excess POC ABG pCO2 ABG Hemoglobin ABG Oxyhemoglobin ABG Sodium ABG Chloride ABG Glucose Oxyhemoglobin Sodium 153 H Potassium 3.5 L Chloride Carbon Dioxide 34 H BUN Creatinine 0.6 L Glucose 121 H POC Glucose 121 H 126 H Lactic Acid Calcium Phosphorus Magnesium AST ALT Lactate Dehydrogenase Total Bilirubin Direct Bilirubin CK-MB (CK-2) C-Reactive Protein NT-Pro-B Natriuret Pep Total Protein 5.9 L Albumin 2.4 L Arterial Blood Glucose Urine WBC (Auto) Urine Creatinine 01/07/20 01/08/20 01/08/20 18:12 00:03 05:41 WBC RBC Hgb Hct MCHC RDW MCV MCH Lymph % (Auto) [place] % (Auto) [place] # Eos # Lymph # (Auto) [place] # (Auto) Eos # (Auto) Seg Neutrophils % Seg Neuts % (Manual) Baso # (Auto) Lymphocytes % (Manual) Monocytes % (Manual) Eosinophils % (Manual) Basophils % (Manual) Seg Neutrophils # Seg Neutrophils # Man Lymphocytes # (Manual) Monocytes # (Manual) Eosinophils # (Manual) Nucleated RBC % Basophils # (Manual) PT INR APTT Heparin Anti-Xa Level ABG pH POC ABG pO2 ABG pO2 ABG HCO3 ABG O2 Saturation ABG Base Excess POC ABG pCO2 ABG Hemoglobin ABG Oxyhemoglobin ABG Sodium ABG Chloride ABG Glucose Oxyhemoglobin Sodium Potassium Chloride Carbon Dioxide BUN Creatinine Glucose POC Glucose 124 H 130 H 138 H Lactic Acid Calcium Phosphorus Magnesium AST ALT Lactate Dehydrogenase Total Bilirubin Direct Bilirubin CK-MB (CK-2) C-Reactive Protein NT-Pro-B Natriuret Pep Total Protein Albumin Arterial Blood Glucose Urine WBC (Auto) Urine Creatinine 01/08/20 01/08/20 01/08/20 09:28 11:42 18:21 WBC RBC Hgb Hct MCHC RDW MCV MCH Lymph % (Auto) [place] % (Auto) [place] # Eos # Lymph # (Auto) [place] # (Auto) Eos # (Auto) Seg Neutrophils % Seg Neuts % (Manual) Baso # (Auto) Lymphocytes % (Manual) Monocytes % (Manual) Eosinophils % (Manual) Basophils % (Manual) Seg Neutrophils # Seg Neutrophils # Man Lymphocytes # (Manual) Monocytes # (Manual) Eosinophils # (Manual) Nucleated RBC % Basophils # (Manual) PT INR APTT Heparin Anti-Xa Level ABG pH POC ABG pO2 ABG pO2 ABG HCO3 ABG O2 Saturation ABG Base Excess POC ABG pCO2 ABG Hemoglobin ABG Oxyhemoglobin ABG Sodium ABG Chloride ABG Glucose Oxyhemoglobin Sodium Potassium Chloride Carbon Dioxide BUN Creatinine Glucose POC Glucose 181 H 150 H 129 H Lactic Acid Calcium Phosphorus Magnesium AST ALT Lactate Dehydrogenase Total Bilirubin Direct Bilirubin CK-MB (CK-2) C-Reactive Protein NT-Pro-B Natriuret Pep Total Protein Albumin Arterial Blood Glucose Urine WBC (Auto) Urine Creatinine 01/08/20 01/08/20 01/09/20 19:25 23:55 04:11 WBC RBC 3.43 L Hgb 8.9 L Hct 28.7 L MCHC 31 L RDW 17.6 H MCV MCH 26 L Lymph % (Auto) [place] % (Auto) 8.6 H [place] # Eos # Lymph # (Auto) [place] # (Auto) Eos # (Auto) Seg Neutrophils % Seg Neuts % (Manual) Baso # (Auto) Lymphocytes % (Manual) Monocytes % (Manual) Eosinophils % (Manual) Basophils % (Manual) Seg Neutrophils # Seg Neutrophils # Man Lymphocytes # (Manual) Monocytes # (Manual) Eosinophils # (Manual) Nucleated RBC % Basophils # (Manual) PT INR APTT Heparin Anti-Xa Level ABG pH POC ABG pO2 ABG pO2 ABG HCO3 ABG O2 Saturation ABG Base Excess POC ABG pCO2 ABG Hemoglobin ABG Oxyhemoglobin ABG Sodium ABG Chloride ABG Glucose Oxyhemoglobin Sodium Potassium Chloride Carbon Dioxide BUN Creatinine 0.7 L Glucose 117 H POC Glucose 132 H Lactic Acid Calcium Phosphorus Magnesium AST ALT Lactate Dehydrogenase Total Bilirubin Direct Bilirubin CK-MB (CK-2) C-Reactive Protein NT-Pro-B Natriuret Pep Total Protein Albumin Arterial Blood Glucose Urine WBC (Auto) Urine Creatinine 01/09/20 01/09/20 01/09/20 04:11 05:38 22:58 WBC RBC Hgb Hct MCHC RDW MCV MCH Lymph % (Auto) [place] % (Auto) [place] # Eos # Lymph # (Auto) [place] # (Auto) Eos # (Auto) Seg Neutrophils % Seg Neuts % (Manual) Baso # (Auto) Lymphocytes % (Manual) Monocytes % (Manual) Eosinophils % (Manual) Basophils % (Manual) Seg Neutrophils # Seg Neutrophils # Man Lymphocytes # (Manual) Monocytes # (Manual) Eosinophils # (Manual) Nucleated RBC % Basophils # (Manual) PT INR APTT Heparin Anti-Xa Level ABG pH POC ABG pO2 ABG pO2 ABG HCO3 ABG O2 Saturation ABG Base Excess POC ABG pCO2 ABG Hemoglobin ABG Oxyhemoglobin ABG Sodium ABG Chloride ABG Glucose Oxyhemoglobin Sodium 147 H Potassium 3.3 L D Chloride Carbon Dioxide 32 H BUN Creatinine 0.6 L Glucose 106 H POC Glucose 107 H 113 H Lactic Acid Calcium Phosphorus Magnesium AST ALT Lactate Dehydrogenase Total Bilirubin Direct Bilirubin CK-MB (CK-2) C-Reactive Protein NT-Pro-B Natriuret Pep Total Protein Albumin Arterial Blood Glucose Urine WBC (Auto) Urine Creatinine 01/10/20 01/10/20 01/10/20 04:05 11:36 17:54 WBC RBC Hgb Hct MCHC RDW MCV MCH Lymph % (Auto) [place] % (Auto) [place] # Eos # Lymph # (Auto) [place] # (Auto) Eos # (Auto) Seg Neutrophils % Seg Neuts % (Manual) Baso # (Auto) Lymphocytes % (Manual) Monocytes % (Manual) Eosinophils % (Manual) Basophils % (Manual) Seg Neutrophils # Seg Neutrophils # Man Lymphocytes # (Manual) Monocytes # (Manual) Eosinophils # (Manual) Nucleated RBC % Basophils # (Manual) PT INR APTT Heparin Anti-Xa Level ABG pH POC ABG pO2 ABG pO2 ABG HCO3 ABG O2 Saturation ABG Base Excess POC ABG pCO2 ABG Hemoglobin ABG Oxyhemoglobin ABG Sodium ABG Chloride ABG Glucose Oxyhemoglobin Sodium Potassium Chloride Carbon Dioxide BUN Creatinine 0.7 L Glucose 110 H POC Glucose 129 H 117 H Lactic Acid Calcium Phosphorus Magnesium AST ALT Lactate Dehydrogenase Total Bilirubin Direct Bilirubin CK-MB (CK-2) C-Reactive Protein NT-Pro-B Natriuret Pep Total Protein Albumin Arterial Blood Glucose Urine WBC (Auto) Urine Creatinine 01/10/20 01/11/20 01/11/20 23:52 03:19 12:09 WBC RBC Hgb Hct MCHC RDW MCV MCH Lymph % (Auto) [place] % (Auto) [place] # Eos # Lymph # (Auto) [place] # (Auto) Eos # (Auto) Seg Neutrophils % Seg Neuts % (Manual) Baso # (Auto) Lymphocytes % (Manual) Monocytes % (Manual) Eosinophils % (Manual) Basophils % (Manual) Seg Neutrophils # Seg Neutrophils # Man Lymphocytes # (Manual) Monocytes # (Manual) Eosinophils # (Manual) Nucleated RBC % Basophils # (Manual) PT INR APTT Heparin Anti-Xa Level ABG pH POC ABG pO2 ABG pO2 ABG HCO3 ABG O2 Saturation ABG Base Excess POC ABG pCO2 ABG Hemoglobin ABG Oxyhemoglobin ABG Sodium ABG Chloride ABG Glucose Oxyhemoglobin Sodium Potassium Chloride Carbon Dioxide BUN Creatinine Glucose POC Glucose 117 H 136 H 115 H Lactic Acid Calcium Phosphorus Magnesium AST ALT Lactate Dehydrogenase Total Bilirubin Direct Bilirubin CK-MB (CK-2) C-Reactive Protein NT-Pro-B Natriuret Pep Total Protein Albumin Arterial Blood Glucose Urine WBC (Auto) Urine Creatinine 01/11/20 01/11/20 01/12/20 18:27 23:28 00:23 WBC RBC Hgb 9.8 L Hct 31.6 L MCHC 31 L RDW 17.8 H MCV 83 L MCH 26 L Lymph % (Auto) [place] % (Auto) 8.0 H [place] # Eos # Lymph # (Auto) [place] # (Auto) Eos # (Auto) Seg Neutrophils % Seg Neuts % (Manual) Baso # (Auto) Lymphocytes % (Manual) Monocytes % (Manual) Eosinophils % (Manual) Basophils % (Manual) Seg Neutrophils # Seg Neutrophils # Man Lymphocytes # (Manual) Monocytes # (Manual) Eosinophils # (Manual) Nucleated RBC % Basophils # (Manual) PT INR APTT Heparin Anti-Xa Level ABG pH POC ABG pO2 ABG pO2 ABG HCO3 ABG O2 Saturation ABG Base Excess POC ABG pCO2 ABG Hemoglobin ABG Oxyhemoglobin ABG Sodium ABG Chloride ABG Glucose Oxyhemoglobin Sodium Potassium Chloride Carbon Dioxide BUN Creatinine Glucose POC Glucose 118 H 122 H Lactic Acid Calcium Phosphorus Magnesium AST ALT Lactate Dehydrogenase Total Bilirubin Direct Bilirubin CK-MB (CK-2) C-Reactive Protein NT-Pro-B Natriuret Pep Total Protein Albumin Arterial Blood Glucose Urine WBC (Auto) Urine Creatinine 01/12/20 01/12/20 01/12/20 00:23 04:18 04:18 WBC RBC Hgb 9.6 L Hct 30.9 L MCHC 31 L RDW 17.3 H MCV 81 L MCH 25 L Lymph % (Auto) [place] % (Auto) [place] # Eos # Lymph # (Auto) [place] # (Auto) Eos # (Auto) Seg Neutrophils % Seg Neuts % (Manual) Baso # (Auto) Lymphocytes % (Manual) Monocytes % (Manual) Eosinophils % (Manual) Basophils % (Manual) Seg Neutrophils # Seg Neutrophils # Man Lymphocytes # (Manual) Monocytes # (Manual) Eosinophils # (Manual) Nucleated RBC % Basophils # (Manual) PT INR APTT Heparin Anti-Xa Level ABG pH POC ABG pO2 ABG pO2 ABG HCO3 ABG O2 Saturation ABG Base Excess POC ABG pCO2 ABG Hemoglobin ABG Oxyhemoglobin ABG Sodium ABG Chloride ABG Glucose Oxyhemoglobin Sodium Potassium Chloride Carbon Dioxide BUN Creatinine 0.7 L 0.7 L Glucose 111 H 108 H POC Glucose Lactic Acid Calcium Phosphorus Magnesium AST ALT Lactate Dehydrogenase Total Bilirubin Direct Bilirubin CK-MB (CK-2) C-Reactive Protein NT-Pro-B Natriuret Pep Total Protein Albumin 2.6 L Arterial Blood Glucose Urine WBC (Auto) Urine Creatinine 01/12/20 01/12/20 01/12/20 06:03 12:27 13:58 WBC RBC Hgb Hct MCHC RDW MCV MCH Lymph % (Auto) [place] % (Auto) [place] # Eos # Lymph # (Auto) [place] # (Auto) Eos # (Auto) Seg Neutrophils % Seg Neuts % (Manual) Baso # (Auto) Lymphocytes % (Manual) Monocytes % (Manual) Eosinophils % (Manual) Basophils % (Manual) Seg Neutrophils # Seg Neutrophils # Man Lymphocytes # (Manual) Monocytes # (Manual) Eosinophils # (Manual) Nucleated RBC % Basophils # (Manual) PT INR APTT Heparin Anti-Xa Level ABG pH 7.453 H POC ABG pO2 76.6 L ABG pO2 ABG HCO3 ABG O2 Saturation ABG Base Excess POC ABG pCO2 ABG Hemoglobin 10.3 L ABG Oxyhemoglobin ABG Sodium ABG Chloride ABG Glucose 99 H Oxyhemoglobin Sodium Potassium Chloride Carbon Dioxide BUN Creatinine Glucose POC Glucose 128 H 121 H Lactic Acid Calcium Phosphorus Magnesium AST ALT Lactate Dehydrogenase Total Bilirubin Direct Bilirubin CK-MB (CK-2) C-Reactive Protein NT-Pro-B Natriuret Pep Total Protein Albumin Arterial Blood Glucose 99 H Urine WBC (Auto) Urine Creatinine 01/12/20 01/13/20 01/13/20 18:24 12:01 17:46 WBC RBC Hgb Hct MCHC RDW MCV MCH Lymph % (Auto) [place] % (Auto) [place] # Eos # Lymph # (Auto) [place] # (Auto) Eos # (Auto) Seg Neutrophils % Seg Neuts % (Manual) Baso # (Auto) Lymphocytes % (Manual) Monocytes % (Manual) Eosinophils % (Manual) Basophils % (Manual) Seg Neutrophils # Seg Neutrophils # Man Lymphocytes # (Manual) Monocytes # (Manual) Eosinophils # (Manual) Nucleated RBC % Basophils # (Manual) PT INR APTT Heparin Anti-Xa Level ABG pH POC ABG pO2 ABG pO2 ABG HCO3 ABG O2 Saturation ABG Base Excess POC ABG pCO2 ABG Hemoglobin ABG Oxyhemoglobin ABG Sodium ABG Chloride ABG Glucose Oxyhemoglobin Sodium Potassium Chloride Carbon Dioxide BUN Creatinine Glucose POC Glucose 119 H 107 H 124 H Lactic Acid Calcium Phosphorus Magnesium AST ALT Lactate Dehydrogenase Total Bilirubin Direct Bilirubin CK-MB (CK-2) C-Reactive Protein NT-Pro-B Natriuret Pep Total Protein Albumin Arterial Blood Glucose Urine WBC (Auto) Urine Creatinine 01/13/20 01/14/20 01/14/20 20:40 00:10 05:33 WBC RBC Hgb Hct MCHC RDW MCV MCH Lymph % (Auto) [place] % (Auto) [place] # Eos # Lymph # (Auto) [place] # (Auto) Eos # (Auto) Seg Neutrophils % Seg Neuts % (Manual) Baso # (Auto) Lymphocytes % (Manual) Monocytes % (Manual) Eosinophils % (Manual) Basophils % (Manual) Seg Neutrophils # Seg Neutrophils # Man Lymphocytes # (Manual) Monocytes # (Manual) Eosinophils # (Manual) Nucleated RBC % Basophils # (Manual) PT INR APTT Heparin Anti-Xa Level ABG pH POC ABG pO2 ABG pO2 65.3 L ABG HCO3 31.8 H ABG O2 Saturation 93.5 L ABG Base Excess 6.7 H POC ABG pCO2 ABG Hemoglobin 13.3 L ABG Oxyhemoglobin ABG Sodium ABG Chloride ABG Glucose Oxyhemoglobin 90.9 L Sodium Potassium Chloride Carbon Dioxide BUN Creatinine Glucose POC Glucose 111 H 111 H Lactic Acid Calcium Phosphorus Magnesium AST ALT Lactate Dehydrogenase Total Bilirubin Direct Bilirubin CK-MB (CK-2) C-Reactive Protein NT-Pro-B Natriuret Pep Total Protein Albumin Arterial Blood Glucose Urine WBC (Auto) Urine Creatinine 01/14/20 01/14/20 01/14/20 12:10 16:14 16:14 WBC RBC Hgb 10.6 L Hct 34.2 L MCHC 31 L RDW 18.3 H MCV 83 L MCH 26 L Lymph % (Auto) [place] % (Auto) 7.4 H [place] # Eos # Lymph # (Auto) [place] # (Auto) Eos # (Auto) Seg Neutrophils % 71.9 H Seg Neuts % (Manual) Baso # (Auto) Lymphocytes % (Manual) Monocytes % (Manual) Eosinophils % (Manual) Basophils % (Manual) Seg Neutrophils # Seg Neutrophils # Man Lymphocytes # (Manual) Monocytes # (Manual) Eosinophils # (Manual) Nucleated RBC % Basophils # (Manual) PT INR APTT Heparin Anti-Xa Level ABG pH POC ABG pO2 ABG pO2 ABG HCO3 ABG O2 Saturation ABG Base Excess POC ABG pCO2 ABG Hemoglobin ABG Oxyhemoglobin ABG Sodium ABG Chloride ABG Glucose Oxyhemoglobin Sodium Potassium Chloride Carbon Dioxide 31 H BUN Creatinine 0.6 L Glucose 131 H POC Glucose 139 H Lactic Acid Calcium Phosphorus Magnesium AST ALT Lactate Dehydrogenase Total Bilirubin Direct Bilirubin CK-MB (CK-2) C-Reactive Protein NT-Pro-B Natriuret Pep Total Protein Albumin Arterial Blood Glucose Urine WBC (Auto) Urine Creatinine 01/14/20 01/15/20 01/15/20 18:05 00:52 05:35 WBC RBC Hgb Hct MCHC RDW MCV MCH Lymph % (Auto) [place] % (Auto) [place] # Eos # Lymph # (Auto) [place] # (Auto) Eos # (Auto) Seg Neutrophils % Seg Neuts % (Manual) Baso # (Auto) Lymphocytes % (Manual) Monocytes % (Manual) Eosinophils % (Manual) Basophils % (Manual) Seg Neutrophils # Seg Neutrophils # Man Lymphocytes # (Manual) Monocytes # (Manual) Eosinophils # (Manual) Nucleated RBC % Basophils # (Manual) PT INR APTT Heparin Anti-Xa Level ABG pH POC ABG pO2 ABG pO2 ABG HCO3 ABG O2 Saturation ABG Base Excess POC ABG pCO2 ABG Hemoglobin ABG Oxyhemoglobin ABG Sodium ABG Chloride ABG Glucose Oxyhemoglobin Sodium Potassium Chloride Carbon Dioxide BUN Creatinine Glucose POC Glucose 147 H 140 H 159 H Lactic Acid Calcium Phosphorus Magnesium AST ALT Lactate Dehydrogenase Total Bilirubin Direct Bilirubin CK-MB (CK-2) C-Reactive Protein NT-Pro-B Natriuret Pep Total Protein Albumin Arterial Blood Glucose Urine WBC (Auto) Urine Creatinine 01/15/20 01/15/20 01/16/20 12:52 17:43 00:32 WBC RBC Hgb Hct MCHC RDW MCV MCH Lymph % (Auto) [place] % (Auto) [place] # Eos # Lymph # (Auto) [place] # (Auto) Eos # (Auto) Seg Neutrophils % Seg Neuts % (Manual) Baso # (Auto) Lymphocytes % (Manual) Monocytes % (Manual) Eosinophils % (Manual) Basophils % (Manual) Seg Neutrophils # Seg Neutrophils # Man Lymphocytes # (Manual) Monocytes # (Manual) Eosinophils # (Manual) Nucleated RBC % Basophils # (Manual) PT INR APTT Heparin Anti-Xa Level ABG pH POC ABG pO2 ABG pO2 ABG HCO3 ABG O2 Saturation ABG Base Excess POC ABG pCO2 ABG Hemoglobin ABG Oxyhemoglobin ABG Sodium ABG Chloride ABG Glucose Oxyhemoglobin Sodium Potassium Chloride Carbon Dioxide BUN Creatinine Glucose POC Glucose 164 H 167 H 153 H Lactic Acid Calcium Phosphorus Magnesium AST ALT Lactate Dehydrogenase Total Bilirubin Direct Bilirubin CK-MB (CK-2) C-Reactive Protein NT-Pro-B Natriuret Pep Total Protein Albumin Arterial Blood Glucose Urine WBC (Auto) Urine Creatinine 01/16/20 01/16/20 01/17/20 05:46 11:48 06:38 WBC RBC Hgb Hct MCHC RDW MCV MCH Lymph % (Auto) [place] % (Auto) [place] # Eos # Lymph # (Auto) [place] # (Auto) Eos # (Auto) Seg Neutrophils % Seg Neuts % (Manual) Baso # (Auto) Lymphocytes % (Manual) Monocytes % (Manual) Eosinophils % (Manual) Basophils % (Manual) Seg Neutrophils # Seg Neutrophils # Man Lymphocytes # (Manual) Monocytes # (Manual) Eosinophils # (Manual) Nucleated RBC % Basophils # (Manual) PT INR APTT Heparin Anti-Xa Level ABG pH POC ABG pO2 ABG pO2 ABG HCO3 ABG O2 Saturation ABG Base Excess POC ABG pCO2 ABG Hemoglobin ABG Oxyhemoglobin ABG Sodium ABG Chloride ABG Glucose Oxyhemoglobin Sodium Potassium Chloride Carbon Dioxide BUN Creatinine Glucose POC Glucose 163 H 155 H 116 H Lactic Acid Calcium Phosphorus Magnesium AST ALT Lactate Dehydrogenase Total Bilirubin Direct Bilirubin CK-MB (CK-2) C-Reactive Protein NT-Pro-B Natriuret Pep Total Protein Albumin Arterial Blood Glucose Urine WBC (Auto) Urine Creatinine 01/17/20 01/17/20 01/18/20 11:36 17:43 00:12 WBC RBC Hgb Hct MCHC RDW MCV MCH Lymph % (Auto) [place] % (Auto) [place] # Eos # Lymph # (Auto) [place] # (Auto) Eos # (Auto) Seg Neutrophils % Seg Neuts % (Manual) Baso # (Auto) Lymphocytes % (Manual) Monocytes % (Manual) Eosinophils % (Manual) Basophils % (Manual) Seg Neutrophils # Seg Neutrophils # Man Lymphocytes # (Manual) Monocytes # (Manual) Eosinophils # (Manual) Nucleated RBC % Basophils # (Manual) PT INR APTT Heparin Anti-Xa Level ABG pH POC ABG pO2 ABG pO2 ABG HCO3 ABG O2 Saturation ABG Base Excess POC ABG pCO2 ABG Hemoglobin ABG Oxyhemoglobin ABG Sodium ABG Chloride ABG Glucose Oxyhemoglobin Sodium Potassium Chloride Carbon Dioxide BUN Creatinine Glucose POC Glucose 110 H 134 H 108 H Lactic Acid Calcium Phosphorus Magnesium AST ALT Lactate Dehydrogenase Total Bilirubin Direct Bilirubin CK-MB (CK-2) C-Reactive Protein NT-Pro-B Natriuret Pep Total Protein Albumin Arterial Blood Glucose Urine WBC (Auto) Urine Creatinine 01/18/20 01/18/20 01/18/20 05:37 06:46 06:46 WBC RBC Hgb 10.1 L Hct 32.2 L MCHC 31 L RDW 18.1 H MCV 81 L MCH 25 L Lymph % (Auto) [place] % (Auto) [place] # Eos # Lymph # (Auto) [place] # (Auto) Eos # (Auto) Seg Neutrophils % 71.9 H Seg Neuts % (Manual) Baso # (Auto) Lymphocytes % (Manual) Monocytes % (Manual) Eosinophils % (Manual) Basophils % (Manual) Seg Neutrophils # Seg Neutrophils # Man Lymphocytes # (Manual) Monocytes # (Manual) Eosinophils # (Manual) Nucleated RBC % Basophils # (Manual) PT INR APTT Heparin Anti-Xa Level ABG pH POC ABG pO2 ABG pO2 ABG HCO3 ABG O2 Saturation ABG Base Excess POC ABG pCO2 ABG Hemoglobin ABG Oxyhemoglobin ABG Sodium ABG Chloride ABG Glucose Oxyhemoglobin Sodium Potassium Chloride Carbon Dioxide BUN Creatinine 0.7 L Glucose 155 H POC Glucose 168 H Lactic Acid Calcium Phosphorus Magnesium AST ALT Lactate Dehydrogenase Total Bilirubin Direct Bilirubin CK-MB (CK-2) C-Reactive Protein NT-Pro-B Natriuret Pep Total Protein Albumin Arterial Blood Glucose Urine WBC (Auto) Urine Creatinine 01/18/20 01/18/20 01/18/20 12:05 17:14 23:28 WBC RBC Hgb Hct MCHC RDW MCV MCH Lymph % (Auto) [place] % (Auto) [place] # Eos # Lymph # (Auto) [place] # (Auto) Eos # (Auto) Seg Neutrophils % Seg Neuts % (Manual) Baso # (Auto) Lymphocytes % (Manual) Monocytes % (Manual) Eosinophils % (Manual) Basophils % (Manual) Seg Neutrophils # Seg Neutrophils # Man Lymphocytes # (Manual) Monocytes # (Manual) Eosinophils # (Manual) Nucleated RBC % Basophils # (Manual) PT INR APTT Heparin Anti-Xa Level ABG pH POC ABG pO2 ABG pO2 ABG HCO3 ABG O2 Saturation ABG Base Excess POC ABG pCO2 ABG Hemoglobin ABG Oxyhemoglobin ABG Sodium ABG Chloride ABG Glucose Oxyhemoglobin Sodium Potassium Chloride Carbon Dioxide BUN Creatinine Glucose POC Glucose 128 H 126 H 128 H Lactic Acid Calcium Phosphorus Magnesium AST ALT Lactate Dehydrogenase Total Bilirubin Direct Bilirubin CK-MB (CK-2) C-Reactive Protein NT-Pro-B Natriuret Pep Total Protein Albumin Arterial Blood Glucose Urine WBC (Auto) Urine Creatinine 01/19/20 01/19/20 01/19/20 05:39 12:33 17:36 WBC RBC Hgb Hct MCHC RDW MCV MCH Lymph % (Auto) [place] % (Auto) [place] # Eos # Lymph # (Auto) [place] # (Auto) Eos # (Auto) Seg Neutrophils % Seg Neuts % (Manual) Baso # (Auto) Lymphocytes % (Manual) Monocytes % (Manual) Eosinophils % (Manual) Basophils % (Manual) Seg Neutrophils # Seg Neutrophils # Man Lymphocytes # (Manual) Monocytes # (Manual) Eosinophils # (Manual) Nucleated RBC % Basophils # (Manual) PT INR APTT Heparin Anti-Xa Level ABG pH POC ABG pO2 ABG pO2 ABG HCO3 ABG O2 Saturation ABG Base Excess POC ABG pCO2 ABG Hemoglobin ABG Oxyhemoglobin ABG Sodium ABG Chloride ABG Glucose Oxyhemoglobin Sodium Potassium Chloride Carbon Dioxide BUN Creatinine Glucose POC Glucose 164 H 171 H 152 H Lactic Acid Calcium Phosphorus Magnesium AST ALT Lactate Dehydrogenase Total Bilirubin Direct Bilirubin CK-MB (CK-2) C-Reactive Protein NT-Pro-B Natriuret Pep Total Protein Albumin Arterial Blood Glucose Urine WBC (Auto) Urine Creatinine 01/20/20 01/20/20 01/20/20 00:12 05:20 05:35 WBC RBC Hgb 9.2 L Hct 29.4 L MCHC 31 L RDW 17.9 H MCV 81 L MCH 25 L Lymph % (Auto) [place] % (Auto) [place] # Eos # Lymph # (Auto) [place] # (Auto) Eos # (Auto) Seg Neutrophils % Seg Neuts % (Manual) Baso # (Auto) Lymphocytes % (Manual) Monocytes % (Manual) Eosinophils % (Manual) Basophils % (Manual) Seg Neutrophils # Seg Neutrophils # Man Lymphocytes # (Manual) Monocytes # (Manual) Eosinophils # (Manual) Nucleated RBC % Basophils # (Manual) PT INR APTT Heparin Anti-Xa Level ABG pH POC ABG pO2 ABG pO2 ABG HCO3 ABG O2 Saturation ABG Base Excess POC ABG pCO2 ABG Hemoglobin ABG Oxyhemoglobin ABG Sodium ABG Chloride ABG Glucose Oxyhemoglobin Sodium Potassium Chloride Carbon Dioxide BUN Creatinine Glucose POC Glucose 120 H 136 H Lactic Acid Calcium Phosphorus Magnesium AST ALT Lactate Dehydrogenase Total Bilirubin Direct Bilirubin CK-MB (CK-2) C-Reactive Protein NT-Pro-B Natriuret Pep Total Protein Albumin Arterial Blood Glucose Urine WBC (Auto) Urine Creatinine 01/20/20 01/20/20 01/20/20 05:40 11:58 14:55 WBC RBC Hgb 9.0 L Hct 28.3 L MCHC RDW MCV MCH Lymph % (Auto) [place] % (Auto) [place] # Eos # Lymph # (Auto) [place] # (Auto) Eos # (Auto) Seg Neutrophils % Seg Neuts % (Manual) Baso # (Auto) Lymphocytes % (Manual) Monocytes % (Manual) Eosinophils % (Manual) Basophils % (Manual) Seg Neutrophils # Seg Neutrophils # Man Lymphocytes # (Manual) Monocytes # (Manual) Eosinophils # (Manual) Nucleated RBC % Basophils # (Manual) PT INR APTT Heparin Anti-Xa Level ABG pH POC ABG pO2 ABG pO2 ABG HCO3 ABG O2 Saturation ABG Base Excess POC ABG pCO2 ABG Hemoglobin ABG Oxyhemoglobin ABG Sodium ABG Chloride ABG Glucose Oxyhemoglobin Sodium Potassium Chloride Carbon Dioxide 32 H BUN 22 H Creatinine 0.7 L Glucose 128 H POC Glucose 152 H Lactic Acid Calcium Phosphorus Magnesium AST ALT Lactate Dehydrogenase Total Bilirubin Direct Bilirubin CK-MB (CK-2) C-Reactive Protein NT-Pro-B Natriuret Pep Total Protein Albumin Arterial Blood Glucose Urine WBC (Auto) Urine Creatinine 01/20/20 01/20/20 01/20/20 14:55 18:14 21:35 WBC RBC Hgb Hct MCHC RDW MCV MCH Lymph % (Auto) [place] % (Auto) [place] # Eos # Lymph # (Auto) [place] # (Auto) Eos # (Auto) Seg Neutrophils % Seg Neuts % (Manual) Baso # (Auto) Lymphocytes % (Manual) Monocytes % (Manual) Eosinophils % (Manual) Basophils % (Manual) Seg Neutrophils # Seg Neutrophils # Man Lymphocytes # (Manual) Monocytes # (Manual) Eosinophils # (Manual) Nucleated RBC % Basophils # (Manual) PT 20.4 H INR 1.72 H APTT 40.6 H Heparin Anti-Xa Level > 2.00 H ABG pH POC ABG pO2 ABG pO2 ABG HCO3 ABG O2 Saturation ABG Base Excess POC ABG pCO2 ABG Hemoglobin ABG Oxyhemoglobin ABG Sodium ABG Chloride ABG Glucose Oxyhemoglobin Sodium Potassium Chloride Carbon Dioxide BUN Creatinine Glucose POC Glucose 150 H Lactic Acid Calcium Phosphorus Magnesium AST ALT Lactate Dehydrogenase Total Bilirubin Direct Bilirubin CK-MB (CK-2) C-Reactive Protein NT-Pro-B Natriuret Pep Total Protein Albumin Arterial Blood Glucose Urine WBC (Auto) Urine Creatinine 01/21/20 01/21/20 01/21/20 00:30 05:47 05:59 WBC RBC Hgb Hct MCHC RDW MCV MCH Lymph % (Auto) [place] % (Auto) [place] # Eos # Lymph # (Auto) [place] # (Auto) Eos # (Auto) Seg Neutrophils % Seg Neuts % (Manual) Baso # (Auto) Lymphocytes % (Manual) Monocytes % (Manual) Eosinophils % (Manual) Basophils % (Manual) Seg Neutrophils # Seg Neutrophils # Man Lymphocytes # (Manual) Monocytes # (Manual) Eosinophils # (Manual) Nucleated RBC % Basophils # (Manual) PT INR APTT Heparin Anti-Xa Level 1.93 H ABG pH POC ABG pO2 ABG pO2 ABG HCO3 ABG O2 Saturation ABG Base Excess POC ABG pCO2 ABG Hemoglobin ABG Oxyhemoglobin ABG Sodium ABG Chloride ABG Glucose Oxyhemoglobin Sodium Potassium Chloride Carbon Dioxide BUN Creatinine Glucose POC Glucose 126 H 148 H Lactic Acid Calcium Phosphorus Magnesium AST ALT Lactate Dehydrogenase Total Bilirubin Direct Bilirubin CK-MB (CK-2) C-Reactive Protein NT-Pro-B Natriuret Pep Total Protein Albumin Arterial Blood Glucose Urine WBC (Auto) Urine Creatinine 01/21/20 01/21/20 01/21/20 12:32 18:20 23:54 WBC RBC Hgb Hct MCHC RDW MCV MCH Lymph % (Auto) [place] % (Auto) [place] # Eos # Lymph # (Auto) [place] # (Auto) Eos # (Auto) Seg Neutrophils % Seg Neuts % (Manual) Baso # (Auto) Lymphocytes % (Manual) Monocytes % (Manual) Eosinophils % (Manual) Basophils % (Manual) Seg Neutrophils # Seg Neutrophils # Man Lymphocytes # (Manual) Monocytes # (Manual) Eosinophils # (Manual) Nucleated RBC % Basophils # (Manual) PT INR APTT Heparin Anti-Xa Level 1.28 H ABG pH POC ABG pO2 ABG pO2 ABG HCO3 ABG O2 Saturation ABG Base Excess POC ABG pCO2 ABG Hemoglobin ABG Oxyhemoglobin ABG Sodium ABG Chloride ABG Glucose Oxyhemoglobin Sodium Potassium Chloride Carbon Dioxide BUN Creatinine Glucose POC Glucose 112 H 146 H Lactic Acid Calcium Phosphorus Magnesium AST ALT Lactate Dehydrogenase Total Bilirubin Direct Bilirubin CK-MB (CK-2) C-Reactive Protein NT-Pro-B Natriuret Pep Total Protein Albumin Arterial Blood Glucose Urine WBC (Auto) Urine Creatinine 01/22/20 01/22/20 01/22/20 04:45 04:45 05:48 WBC RBC Hgb 9.3 L Hct 29.0 L MCHC RDW MCV MCH Lymph % (Auto) [place] % (Auto) [place] # Eos # Lymph # (Auto) [place] # (Auto) Eos # (Auto) Seg Neutrophils % Seg Neuts % (Manual) Baso # (Auto) Lymphocytes % (Manual) Monocytes % (Manual) Eosinophils % (Manual) Basophils % (Manual) Seg Neutrophils # Seg Neutrophils # Man Lymphocytes # (Manual) Monocytes # (Manual) Eosinophils # (Manual) Nucleated RBC % Basophils # (Manual) PT INR APTT Heparin Anti-Xa Level 1.34 H ABG pH POC ABG pO2 ABG pO2 ABG HCO3 ABG O2 Saturation ABG Base Excess POC ABG pCO2 ABG Hemoglobin ABG Oxyhemoglobin ABG Sodium ABG Chloride ABG Glucose Oxyhemoglobin Sodium Potassium Chloride Carbon Dioxide BUN Creatinine Glucose POC Glucose 142 H Lactic Acid Calcium Phosphorus Magnesium AST ALT Lactate Dehydrogenase Total Bilirubin Direct Bilirubin CK-MB (CK-2) C-Reactive Protein NT-Pro-B Natriuret Pep Total Protein Albumin Arterial Blood Glucose Urine WBC (Auto) Urine Creatinine 01/22/20 01/22/20 01/22/20 08:09 08:22 09:58 WBC RBC Hgb Hct MCHC RDW MCV MCH Lymph % (Auto) [place] % (Auto) [place] # Eos # Lymph # (Auto) [place] # (Auto) Eos # (Auto) Seg Neutrophils % Seg Neuts % (Manual) Baso # (Auto) Lymphocytes % (Manual) Monocytes % (Manual) Eosinophils % (Manual) Basophils % (Manual) Seg Neutrophils # Seg Neutrophils # Man Lymphocytes # (Manual) Monocytes # (Manual) Eosinophils # (Manual) Nucleated RBC % Basophils # (Manual) PT 16.9 H INR 1.34 H APTT Heparin Anti-Xa Level ABG pH POC ABG pO2 ABG pO2 ABG HCO3 ABG O2 Saturation ABG Base Excess POC ABG pCO2 ABG Hemoglobin ABG Oxyhemoglobin ABG Sodium ABG Chloride ABG Glucose Oxyhemoglobin Sodium Potassium Chloride 97.8 L Carbon Dioxide BUN 29 H Creatinine Glucose 128 H POC Glucose 131 H Lactic Acid Calcium Phosphorus Magnesium AST ALT Lactate Dehydrogenase Total Bilirubin Direct Bilirubin CK-MB (CK-2) C-Reactive Protein NT-Pro-B Natriuret Pep Total Protein Albumin Arterial Blood Glucose Urine WBC (Auto) Urine Creatinine 01/22/20 01/22/20 01/22/20 12:44 16:13 18:18 WBC RBC Hgb Hct MCHC RDW MCV MCH Lymph % (Auto) [place] % (Auto) [place] # Eos # Lymph # (Auto) [place] # (Auto) Eos # (Auto) Seg Neutrophils % Seg Neuts % (Manual) Baso # (Auto) Lymphocytes % (Manual) Monocytes % (Manual) Eosinophils % (Manual) Basophils % (Manual) Seg Neutrophils # Seg Neutrophils # Man Lymphocytes # (Manual) Monocytes # (Manual) Eosinophils # (Manual) Nucleated RBC % Basophils # (Manual) PT INR APTT Heparin Anti-Xa Level ABG pH POC ABG pO2 ABG pO2 ABG HCO3 ABG O2 Saturation ABG Base Excess POC ABG pCO2 ABG Hemoglobin ABG Oxyhemoglobin ABG Sodium ABG Chloride ABG Glucose Oxyhemoglobin Sodium Potassium Chloride Carbon Dioxide BUN Creatinine Glucose POC Glucose 156 H 133 H 155 H Lactic Acid Calcium Phosphorus Magnesium AST ALT Lactate Dehydrogenase Total Bilirubin Direct Bilirubin CK-MB (CK-2) C-Reactive Protein NT-Pro-B Natriuret Pep Total Protein Albumin Arterial Blood Glucose Urine WBC (Auto) Urine Creatinine 01/22/20 01/23/20 01/23/20 23:22 05:37 12:59 WBC RBC Hgb Hct MCHC RDW MCV MCH Lymph % (Auto) [place] % (Auto) [place] # Eos # Lymph # (Auto) [place] # (Auto) Eos # (Auto) Seg Neutrophils % Seg Neuts % (Manual) Baso # (Auto) Lymphocytes % (Manual) Monocytes % (Manual) Eosinophils % (Manual) Basophils % (Manual) Seg Neutrophils # Seg Neutrophils # Man Lymphocytes # (Manual) Monocytes # (Manual) Eosinophils # (Manual) Nucleated RBC % Basophils # (Manual) PT INR APTT Heparin Anti-Xa Level ABG pH POC ABG pO2 ABG pO2 ABG HCO3 ABG O2 Saturation ABG Base Excess POC ABG pCO2 ABG Hemoglobin ABG Oxyhemoglobin ABG Sodium ABG Chloride ABG Glucose Oxyhemoglobin Sodium Potassium Chloride Carbon Dioxide BUN Creatinine Glucose POC Glucose 148 H 163 H 175 H Lactic Acid Calcium Phosphorus Magnesium AST ALT Lactate Dehydrogenase Total Bilirubin Direct Bilirubin CK-MB (CK-2) C-Reactive Protein NT-Pro-B Natriuret Pep Total Protein Albumin Arterial Blood Glucose Urine WBC (Auto) Urine Creatinine 01/23/20 01/23/20 01/24/20 17:28 23:56 04:30 WBC RBC 3.46 L Hgb 8.8 L Hct 27.8 L MCHC RDW 18.2 H MCV 81 L MCH 25 L Lymph % (Auto) [place] % (Auto) 7.8 H [place] # Eos # Lymph # (Auto) [place] # (Auto) Eos # (Auto) Seg Neutrophils % Seg Neuts % (Manual) Baso # (Auto) Lymphocytes % (Manual) Monocytes % (Manual) Eosinophils % (Manual) Basophils % (Manual) Seg Neutrophils # Seg Neutrophils # Man Lymphocytes # (Manual) Monocytes # (Manual) Eosinophils # (Manual) Nucleated RBC % Basophils # (Manual) PT INR APTT Heparin Anti-Xa Level ABG pH POC ABG pO2 ABG pO2 ABG HCO3 ABG O2 Saturation ABG Base Excess POC ABG pCO2 ABG Hemoglobin ABG Oxyhemoglobin ABG Sodium ABG Chloride ABG Glucose Oxyhemoglobin Sodium Potassium Chloride Carbon Dioxide BUN Creatinine Glucose POC Glucose 165 H 177 H Lactic Acid Calcium Phosphorus Magnesium AST ALT Lactate Dehydrogenase Total Bilirubin Direct Bilirubin CK-MB (CK-2) C-Reactive Protein NT-Pro-B Natriuret Pep Total Protein Albumin Arterial Blood Glucose Urine WBC (Auto) Urine Creatinine 01/24/20 01/24/20 01/24/20 04:30 07:18 12:06 WBC RBC Hgb Hct MCHC RDW MCV MCH Lymph % (Auto) [place] % (Auto) [place] # Eos # Lymph # (Auto) [place] # (Auto) Eos # (Auto) Seg Neutrophils % Seg Neuts % (Manual) Baso # (Auto) Lymphocytes % (Manual) Monocytes % (Manual) Eosinophils % (Manual) Basophils % (Manual) Seg Neutrophils # Seg Neutrophils # Man Lymphocytes # (Manual) Monocytes # (Manual) Eosinophils # (Manual) Nucleated RBC % Basophils # (Manual) PT INR APTT Heparin Anti-Xa Level ABG pH POC ABG pO2 ABG pO2 ABG HCO3 ABG O2 Saturation ABG Base Excess POC ABG pCO2 ABG Hemoglobin ABG Oxyhemoglobin ABG Sodium ABG Chloride ABG Glucose Oxyhemoglobin Sodium Potassium Chloride 97.9 L Carbon Dioxide BUN 31 H Creatinine Glucose 146 H POC Glucose 151 H 133 H Lactic Acid Calcium Phosphorus Magnesium AST ALT Lactate Dehydrogenase Total Bilirubin Direct Bilirubin CK-MB (CK-2) C-Reactive Protein NT-Pro-B Natriuret Pep Total Protein Albumin Arterial Blood Glucose Urine WBC (Auto) Urine Creatinine 01/24/20 01/25/20 01/25/20 17:36 00:08 04:25 WBC RBC 3.50 L Hgb 8.7 L Hct 27.9 L MCHC 31 L RDW 18.2 H MCV 80 L MCH 25 L Lymph % (Auto) [place] % (Auto) 8.5 H [place] # Eos # Lymph # (Auto) [place] # (Auto) Eos # (Auto) Seg Neutrophils % Seg Neuts % (Manual) Baso # (Auto) Lymphocytes % (Manual) Monocytes % (Manual) Eosinophils % (Manual) Basophils % (Manual) Seg Neutrophils # Seg Neutrophils # Man Lymphocytes # (Manual) Monocytes # (Manual) Eosinophils # (Manual) Nucleated RBC % Basophils # (Manual) PT INR APTT Heparin Anti-Xa Level ABG pH POC ABG pO2 ABG pO2 ABG HCO3 ABG O2 Saturation ABG Base Excess POC ABG pCO2 ABG Hemoglobin ABG Oxyhemoglobin ABG Sodium ABG Chloride ABG Glucose Oxyhemoglobin Sodium Potassium Chloride Carbon Dioxide BUN Creatinine Glucose POC Glucose 133 H 129 H Lactic Acid Calcium Phosphorus Magnesium AST ALT Lactate Dehydrogenase Total Bilirubin Direct Bilirubin CK-MB (CK-2) C-Reactive Protein NT-Pro-B Natriuret Pep Total Protein Albumin Arterial Blood Glucose Urine WBC (Auto) Urine Creatinine 01/25/20 01/25/20 01/25/20 04:25 05:38 11:52 WBC RBC Hgb Hct MCHC RDW MCV MCH Lymph % (Auto) [place] % (Auto) [place] # Eos # Lymph # (Auto) [place] # (Auto) Eos # (Auto) Seg Neutrophils % Seg Neuts % (Manual) Baso # (Auto) Lymphocytes % (Manual) Monocytes % (Manual) Eosinophils % (Manual) Basophils % (Manual) Seg Neutrophils # Seg Neutrophils # Man Lymphocytes # (Manual) Monocytes # (Manual) Eosinophils # (Manual) Nucleated RBC % Basophils # (Manual) PT INR APTT Heparin Anti-Xa Level ABG pH POC ABG pO2 ABG pO2 ABG HCO3 ABG O2 Saturation ABG Base Excess POC ABG pCO2 ABG Hemoglobin ABG Oxyhemoglobin ABG Sodium ABG Chloride ABG Glucose Oxyhemoglobin Sodium Potassium Chloride Carbon Dioxide BUN 30 H Creatinine Glucose 134 H POC Glucose 129 H 134 H Lactic Acid Calcium Phosphorus Magnesium AST ALT Lactate Dehydrogenase Total Bilirubin Direct Bilirubin CK-MB (CK-2) C-Reactive Protein NT-Pro-B Natriuret Pep Total Protein Albumin Arterial Blood Glucose Urine WBC (Auto) Urine Creatinine 01/25/20 01/25/20 01/26/20 17:13 21:02 00:59 WBC RBC Hgb Hct MCHC RDW MCV MCH Lymph % (Auto) [place] % (Auto) [place] # Eos # Lymph # (Auto) [place] # (Auto) Eos # (Auto) Seg Neutrophils % Seg Neuts % (Manual) Baso # (Auto) Lymphocytes % (Manual) Monocytes % (Manual) Eosinophils % (Manual) Basophils % (Manual) Seg Neutrophils # Seg Neutrophils # Man Lymphocytes # (Manual) Monocytes # (Manual) Eosinophils # (Manual) Nucleated RBC % Basophils # (Manual) PT INR APTT Heparin Anti-Xa Level ABG pH POC ABG pO2 ABG pO2 57.5 L ABG HCO3 31.7 H ABG O2 Saturation 90.3 L ABG Base Excess 6.6 H POC ABG pCO2 ABG Hemoglobin 13.0 L ABG Oxyhemoglobin ABG Sodium ABG Chloride ABG Glucose Oxyhemoglobin 87.5 L Sodium Potassium Chloride Carbon Dioxide BUN Creatinine Glucose POC Glucose 124 H 196 H Lactic Acid Calcium Phosphorus Magnesium AST ALT Lactate Dehydrogenase Total Bilirubin Direct Bilirubin CK-MB (CK-2) C-Reactive Protein NT-Pro-B Natriuret Pep Total Protein Albumin Arterial Blood Glucose Urine WBC (Auto) Urine Creatinine 01/26/20 01/26/20 01/26/20 03:20 05:46 12:46 WBC RBC Hgb 9.2 L Hct 29.4 L MCHC RDW MCV MCH Lymph % (Auto) [place] % (Auto) [place] # Eos # Lymph # (Auto) [place] # (Auto) Eos # (Auto) Seg Neutrophils % Seg Neuts % (Manual) Baso # (Auto) Lymphocytes % (Manual) Monocytes % (Manual) Eosinophils % (Manual) Basophils % (Manual) Seg Neutrophils # Seg Neutrophils # Man Lymphocytes # (Manual) Monocytes # (Manual) Eosinophils # (Manual) Nucleated RBC % Basophils # (Manual) PT INR APTT Heparin Anti-Xa Level ABG pH POC ABG pO2 ABG pO2 ABG HCO3 ABG O2 Saturation ABG Base Excess POC ABG pCO2 ABG Hemoglobin ABG Oxyhemoglobin ABG Sodium ABG Chloride ABG Glucose Oxyhemoglobin Sodium Potassium Chloride Carbon Dioxide BUN Creatinine Glucose POC Glucose 141 H 122 H Lactic Acid Calcium Phosphorus Magnesium AST ALT Lactate Dehydrogenase Total Bilirubin Direct Bilirubin CK-MB (CK-2) C-Reactive Protein NT-Pro-B Natriuret Pep Total Protein Albumin Arterial Blood Glucose Urine WBC (Auto) Urine Creatinine 01/26/20 01/26/20 01/27/20 18:03 23:55 04:47 WBC RBC Hgb Hct MCHC RDW MCV MCH Lymph % (Auto) [place] % (Auto) [place] # Eos # Lymph # (Auto) [place] # (Auto) Eos # (Auto) Seg Neutrophils % Seg Neuts % (Manual) Baso # (Auto) Lymphocytes % (Manual) Monocytes % (Manual) Eosinophils % (Manual) Basophils % (Manual) Seg Neutrophils # Seg Neutrophils # Man Lymphocytes # (Manual) Monocytes # (Manual) Eosinophils # (Manual) Nucleated RBC % Basophils # (Manual) PT INR APTT Heparin Anti-Xa Level ABG pH POC ABG pO2 ABG pO2 ABG HCO3 ABG O2 Saturation ABG Base Excess POC ABG pCO2 ABG Hemoglobin ABG Oxyhemoglobin ABG Sodium ABG Chloride ABG Glucose Oxyhemoglobin Sodium Potassium Chloride Carbon Dioxide BUN 30 H Creatinine 0.7 L Glucose 135 H POC Glucose 142 H 159 H Lactic Acid Calcium Phosphorus Magnesium AST ALT Lactate Dehydrogenase Total Bilirubin Direct Bilirubin CK-MB (CK-2) C-Reactive Protein NT-Pro-B Natriuret Pep Total Protein Albumin Arterial Blood Glucose Urine WBC (Auto) Urine Creatinine 01/27/20 01/27/20 01/27/20 05:43 12:06 17:16 WBC RBC Hgb Hct MCHC RDW MCV MCH Lymph % (Auto) [place] % (Auto) [place] # Eos # Lymph # (Auto) [place] # (Auto) Eos # (Auto) Seg Neutrophils % Seg Neuts % (Manual) Baso # (Auto) Lymphocytes % (Manual) Monocytes % (Manual) Eosinophils % (Manual) Basophils % (Manual) Seg Neutrophils # Seg Neutrophils # Man Lymphocytes # (Manual) Monocytes # (Manual) Eosinophils # (Manual) Nucleated RBC % Basophils # (Manual) PT INR APTT Heparin Anti-Xa Level ABG pH POC ABG pO2 ABG pO2 ABG HCO3 ABG O2 Saturation ABG Base Excess POC ABG pCO2 ABG Hemoglobin ABG Oxyhemoglobin ABG Sodium ABG Chloride ABG Glucose Oxyhemoglobin Sodium Potassium Chloride Carbon Dioxide BUN Creatinine Glucose POC Glucose 143 H 142 H 128 H Lactic Acid Calcium Phosphorus Magnesium AST ALT Lactate Dehydrogenase Total Bilirubin Direct Bilirubin CK-MB (CK-2) C-Reactive Protein NT-Pro-B Natriuret Pep Total Protein Albumin Arterial Blood Glucose Urine WBC (Auto) Urine Creatinine 01/27/20 01/28/20 01/28/20 23:55 04:37 05:55 WBC RBC Hgb 9.4 L Hct 29.9 L MCHC RDW MCV MCH Lymph % (Auto) [place] % (Auto) [place] # Eos # Lymph # (Auto) [place] # (Auto) Eos # (Auto) Seg Neutrophils % Seg Neuts % (Manual) Baso # (Auto) Lymphocytes % (Manual) Monocytes % (Manual) Eosinophils % (Manual) Basophils % (Manual) Seg Neutrophils # Seg Neutrophils # Man Lymphocytes # (Manual) Monocytes # (Manual) Eosinophils # (Manual) Nucleated RBC % Basophils # (Manual) PT INR APTT Heparin Anti-Xa Level ABG pH POC ABG pO2 ABG pO2 ABG HCO3 ABG O2 Saturation ABG Base Excess POC ABG pCO2 ABG Hemoglobin ABG Oxyhemoglobin ABG Sodium ABG Chloride ABG Glucose Oxyhemoglobin Sodium Potassium Chloride Carbon Dioxide BUN Creatinine Glucose POC Glucose 166 H 169 H Lactic Acid Calcium Phosphorus Magnesium AST ALT Lactate Dehydrogenase Total Bilirubin Direct Bilirubin CK-MB (CK-2) C-Reactive Protein NT-Pro-B Natriuret Pep Total Protein Albumin Arterial Blood Glucose Urine WBC (Auto) Urine Creatinine 01/28/20 01/28/20 01/28/20 11:58 17:26 23:46 WBC RBC Hgb Hct MCHC RDW MCV MCH Lymph % (Auto) [place] % (Auto) [place] # Eos # Lymph # (Auto) [place] # (Auto) Eos # (Auto) Seg Neutrophils % Seg Neuts % (Manual) Baso # (Auto) Lymphocytes % (Manual) Monocytes % (Manual) Eosinophils % (Manual) Basophils % (Manual) Seg Neutrophils # Seg Neutrophils # Man Lymphocytes # (Manual) Monocytes # (Manual) Eosinophils # (Manual) Nucleated RBC % Basophils # (Manual) PT INR APTT Heparin Anti-Xa Level ABG pH POC ABG pO2 ABG pO2 ABG HCO3 ABG O2 Saturation ABG Base Excess POC ABG pCO2 ABG Hemoglobin ABG Oxyhemoglobin ABG Sodium ABG Chloride ABG Glucose Oxyhemoglobin Sodium Potassium Chloride Carbon Dioxide BUN Creatinine Glucose POC Glucose 130 H 126 H 150 H Lactic Acid Calcium Phosphorus Magnesium AST ALT Lactate Dehydrogenase Total Bilirubin Direct Bilirubin CK-MB (CK-2) C-Reactive Protein NT-Pro-B Natriuret Pep Total Protein Albumin Arterial Blood Glucose Urine WBC (Auto) Urine Creatinine 01/29/20 01/29/20 01/29/20 04:55 06:00 12:28 WBC RBC Hgb Hct MCHC RDW MCV MCH Lymph % (Auto) [place] % (Auto) [place] # Eos # Lymph # (Auto) [place] # (Auto) Eos # (Auto) Seg Neutrophils % Seg Neuts % (Manual) Baso # (Auto) Lymphocytes % (Manual) Monocytes % (Manual) Eosinophils % (Manual) Basophils % (Manual) Seg Neutrophils # Seg Neutrophils # Man Lymphocytes # (Manual) Monocytes # (Manual) Eosinophils # (Manual) Nucleated RBC % Basophils # (Manual) PT INR APTT Heparin Anti-Xa Level ABG pH POC ABG pO2 ABG pO2 ABG HCO3 ABG O2 Saturation ABG Base Excess POC ABG pCO2 ABG Hemoglobin ABG Oxyhemoglobin ABG Sodium ABG Chloride ABG Glucose Oxyhemoglobin Sodium Potassium Chloride Carbon Dioxide 34 H BUN Creatinine 0.6 L Glucose 152 H POC Glucose 157 H 156 H Lactic Acid Calcium Phosphorus Magnesium AST ALT Lactate Dehydrogenase Total Bilirubin Direct Bilirubin CK-MB (CK-2) C-Reactive Protein NT-Pro-B Natriuret Pep Total Protein Albumin Arterial Blood Glucose Urine WBC (Auto) Urine Creatinine 01/29/20 01/30/20 01/30/20 19:06 00:29 05:39 WBC RBC Hgb Hct MCHC RDW MCV MCH Lymph % (Auto) [place] % (Auto) [place] # Eos # Lymph # (Auto) [place] # (Auto) Eos # (Auto) Seg Neutrophils % Seg Neuts % (Manual) Baso # (Auto) Lymphocytes % (Manual) Monocytes % (Manual) Eosinophils % (Manual) Basophils % (Manual) Seg Neutrophils # Seg Neutrophils # Man Lymphocytes # (Manual) Monocytes # (Manual) Eosinophils # (Manual) Nucleated RBC % Basophils # (Manual) PT INR APTT Heparin Anti-Xa Level ABG pH POC ABG pO2 ABG pO2 ABG HCO3 ABG O2 Saturation ABG Base Excess POC ABG pCO2 ABG Hemoglobin ABG Oxyhemoglobin ABG Sodium ABG Chloride ABG Glucose Oxyhemoglobin Sodium Potassium Chloride Carbon Dioxide BUN Creatinine Glucose POC Glucose 152 H 132 H 159 H Lactic Acid Calcium Phosphorus Magnesium AST ALT Lactate Dehydrogenase Total Bilirubin Direct Bilirubin CK-MB (CK-2) C-Reactive Protein NT-Pro-B Natriuret Pep Total Protein Albumin Arterial Blood Glucose Urine WBC (Auto) Urine Creatinine 01/30/20 01/30/20 01/30/20 12:27 17:42 23:28 WBC RBC Hgb Hct MCHC RDW MCV MCH Lymph % (Auto) [place] % (Auto) [place] # Eos # Lymph # (Auto) [place] # (Auto) Eos # (Auto) Seg Neutrophils % Seg Neuts % (Manual) Baso # (Auto) Lymphocytes % (Manual) Monocytes % (Manual) Eosinophils % (Manual) Basophils % (Manual) Seg Neutrophils # Seg Neutrophils # Man Lymphocytes # (Manual) Monocytes # (Manual) Eosinophils # (Manual) Nucleated RBC % Basophils # (Manual) PT INR APTT Heparin Anti-Xa Level ABG pH POC ABG pO2 ABG pO2 ABG HCO3 ABG O2 Saturation ABG Base Excess POC ABG pCO2 ABG Hemoglobin ABG Oxyhemoglobin ABG Sodium ABG Chloride ABG Glucose Oxyhemoglobin Sodium Potassium Chloride Carbon Dioxide BUN Creatinine Glucose POC Glucose 151 H 144 H 164 H Lactic Acid Calcium Phosphorus Magnesium AST ALT Lactate Dehydrogenase Total Bilirubin Direct Bilirubin CK-MB (CK-2) C-Reactive Protein NT-Pro-B Natriuret Pep Total Protein Albumin Arterial Blood Glucose Urine WBC (Auto) Urine Creatinine 01/31/20 01/31/20 01/31/20 05:51 11:51 18:06 WBC RBC Hgb Hct MCHC RDW MCV MCH Lymph % (Auto) [place] % (Auto) [place] # Eos # Lymph # (Auto) [place] # (Auto) Eos # (Auto) Seg Neutrophils % Seg Neuts % (Manual) Baso # (Auto) Lymphocytes % (Manual) Monocytes % (Manual) Eosinophils % (Manual) Basophils % (Manual) Seg Neutrophils # Seg Neutrophils # Man Lymphocytes # (Manual) Monocytes # (Manual) Eosinophils # (Manual) Nucleated RBC % Basophils # (Manual) PT INR APTT Heparin Anti-Xa Level ABG pH POC ABG pO2 ABG pO2 ABG HCO3 ABG O2 Saturation ABG Base Excess POC ABG pCO2 ABG Hemoglobin ABG Oxyhemoglobin ABG Sodium ABG Chloride ABG Glucose Oxyhemoglobin Sodium Potassium Chloride Carbon Dioxide BUN Creatinine Glucose POC Glucose 131 H 167 H 210 H Lactic Acid Calcium Phosphorus Magnesium AST ALT Lactate Dehydrogenase Total Bilirubin Direct Bilirubin CK-MB (CK-2) C-Reactive Protein NT-Pro-B Natriuret Pep Total Protein Albumin Arterial Blood Glucose Urine WBC (Auto) Urine Creatinine 01/31/20 01/31/20 02/01/20 19:24 Unknown 00:34 WBC RBC Hgb Hct MCHC RDW MCV MCH Lymph % (Auto) [place] % (Auto) [place] # Eos # Lymph # (Auto) [place] # (Auto) Eos # (Auto) Seg Neutrophils % Seg Neuts % (Manual) Baso # (Auto) Lymphocytes % (Manual) Monocytes % (Manual) Eosinophils % (Manual) Basophils % (Manual) Seg Neutrophils # Seg Neutrophils # Man Lymphocytes # (Manual) Monocytes # (Manual) Eosinophils # (Manual) Nucleated RBC % Basophils # (Manual) PT INR APTT Heparin Anti-Xa Level ABG pH POC ABG pO2 ABG pO2 ABG HCO3 ABG O2 Saturation ABG Base Excess POC ABG pCO2 ABG Hemoglobin ABG Oxyhemoglobin ABG Sodium ABG Chloride ABG Glucose Oxyhemoglobin Sodium Potassium Chloride 95.3 L Carbon Dioxide 33 H BUN 36 H Creatinine Glucose 187 H POC Glucose 116 H Lactic Acid Calcium Phosphorus Magnesium AST ALT Lactate Dehydrogenase Total Bilirubin Direct Bilirubin CK-MB (CK-2) C-Reactive Protein NT-Pro-B Natriuret Pep Total Protein Albumin Arterial Blood Glucose Urine WBC (Auto) Urine Creatinine 57.4 H 02/01/20 02/01/20 02/01/20 05:24 10:40 12:29 WBC RBC Hgb Hct MCHC RDW MCV MCH Lymph % (Auto) [place] % (Auto) [place] # Eos # Lymph # (Auto) [place] # (Auto) Eos # (Auto) Seg Neutrophils % Seg Neuts % (Manual) Baso # (Auto) Lymphocytes % (Manual) Monocytes % (Manual) Eosinophils % (Manual) Basophils % (Manual) Seg Neutrophils # Seg Neutrophils # Man Lymphocytes # (Manual) Monocytes # (Manual) Eosinophils # (Manual) Nucleated RBC % Basophils # (Manual) PT INR APTT Heparin Anti-Xa Level ABG pH POC ABG pO2 ABG pO2 ABG HCO3 ABG O2 Saturation ABG Base Excess POC ABG pCO2 ABG Hemoglobin ABG Oxyhemoglobin ABG Sodium ABG Chloride ABG Glucose Oxyhemoglobin Sodium Potassium Chloride Carbon Dioxide BUN Creatinine Glucose POC Glucose 142 H 165 H 151 H Lactic Acid Calcium Phosphorus Magnesium AST ALT Lactate Dehydrogenase Total Bilirubin Direct Bilirubin CK-MB (CK-2) C-Reactive Protein NT-Pro-B Natriuret Pep Total Protein Albumin Arterial Blood Glucose Urine WBC (Auto) Urine Creatinine 02/01/20 02/01/20 02/02/20 17:16 23:23 06:36 WBC RBC Hgb Hct MCHC RDW MCV MCH Lymph % (Auto) [place] % (Auto) [place] # Eos # Lymph # (Auto) [place] # (Auto) Eos # (Auto) Seg Neutrophils % Seg Neuts % (Manual) Baso # (Auto) Lymphocytes % (Manual) Monocytes % (Manual) Eosinophils % (Manual) Basophils % (Manual) Seg Neutrophils # Seg Neutrophils # Man Lymphocytes # (Manual) Monocytes # (Manual) Eosinophils # (Manual) Nucleated RBC % Basophils # (Manual) PT INR APTT Heparin Anti-Xa Level ABG pH POC ABG pO2 ABG pO2 ABG HCO3 ABG O2 Saturation ABG Base Excess POC ABG pCO2 ABG Hemoglobin ABG Oxyhemoglobin ABG Sodium ABG Chloride ABG Glucose Oxyhemoglobin Sodium Potassium Chloride Carbon Dioxide BUN Creatinine Glucose POC Glucose 137 H 145 H 181 H Lactic Acid Calcium Phosphorus Magnesium AST ALT Lactate Dehydrogenase Total Bilirubin Direct Bilirubin CK-MB (CK-2) C-Reactive Protein NT-Pro-B Natriuret Pep Total Protein Albumin Arterial Blood Glucose Urine WBC (Auto) Urine Creatinine 02/02/20 02/02/20 02/02/20 10:01 12:05 17:54 WBC RBC Hgb Hct MCHC RDW MCV MCH Lymph % (Auto) [place] % (Auto) [place] # Eos # Lymph # (Auto) [place] # (Auto) Eos # (Auto) Seg Neutrophils % Seg Neuts % (Manual) Baso # (Auto) Lymphocytes % (Manual) Monocytes % (Manual) Eosinophils % (Manual) Basophils % (Manual) Seg Neutrophils # Seg Neutrophils # Man Lymphocytes # (Manual) Monocytes # (Manual) Eosinophils # (Manual) Nucleated RBC % Basophils # (Manual) PT INR APTT Heparin Anti-Xa Level ABG pH POC ABG pO2 ABG pO2 ABG HCO3 ABG O2 Saturation ABG Base Excess POC ABG pCO2 ABG Hemoglobin ABG Oxyhemoglobin ABG Sodium ABG Chloride ABG Glucose Oxyhemoglobin Sodium Potassium Chloride 95.3 L Carbon Dioxide BUN 44 H Creatinine Glucose 234 H POC Glucose 184 H 127 H Lactic Acid Calcium Phosphorus Magnesium AST 363 H ALT 457 H Lactate Dehydrogenase Total Bilirubin Direct Bilirubin CK-MB (CK-2) C-Reactive Protein NT-Pro-B Natriuret Pep Total Protein Albumin 3.0 L Arterial Blood Glucose Urine WBC (Auto) Urine Creatinine 02/02/20 02/03/20 02/03/20 23:47 05:32 07:04 WBC 13.0 H RBC Hgb 9.5 L Hct 30.8 L MCHC 31 L RDW 19.6 H MCV 81 L MCH 25 L Lymph % (Auto) [place] % (Auto) 9.4 H [place] # Eos # Lymph # (Auto) [place] # (Auto) 1.2 H Eos # (Auto) Seg Neutrophils % 72.3 H Seg Neuts % (Manual) Baso # (Auto) Lymphocytes % (Manual) Monocytes % (Manual) Eosinophils % (Manual) Basophils % (Manual) Seg Neutrophils # 9.4 H Seg Neutrophils # Man Lymphocytes # (Manual) Monocytes # (Manual) Eosinophils # (Manual) Nucleated RBC % Basophils # (Manual) PT INR APTT Heparin Anti-Xa Level ABG pH POC ABG pO2 ABG pO2 ABG HCO3 ABG O2 Saturation ABG Base Excess POC ABG pCO2 ABG Hemoglobin ABG Oxyhemoglobin ABG Sodium ABG Chloride ABG Glucose Oxyhemoglobin Sodium Potassium Chloride Carbon Dioxide BUN Creatinine Glucose POC Glucose 124 H 129 H Lactic Acid Calcium Phosphorus Magnesium AST ALT Lactate Dehydrogenase Total Bilirubin Direct Bilirubin CK-MB (CK-2) C-Reactive Protein NT-Pro-B Natriuret Pep Total Protein Albumin Arterial Blood Glucose Urine WBC (Auto) Urine Creatinine 02/03/20 02/03/20 02/03/20 07:04 11:32 12:49 WBC RBC Hgb Hct MCHC RDW MCV MCH Lymph % (Auto) [place] % (Auto) [place] # Eos # Lymph # (Auto) [place] # (Auto) Eos # (Auto) Seg Neutrophils % Seg Neuts % (Manual) Baso # (Auto) Lymphocytes % (Manual) Monocytes % (Manual) Eosinophils % (Manual) Basophils % (Manual) Seg Neutrophils # Seg Neutrophils # Man Lymphocytes # (Manual) Monocytes # (Manual) Eosinophils # (Manual) Nucleated RBC % Basophils # (Manual) PT INR APTT Heparin Anti-Xa Level ABG pH POC ABG pO2 ABG pO2 ABG HCO3 ABG O2 Saturation ABG Base Excess POC ABG pCO2 ABG Hemoglobin ABG Oxyhemoglobin ABG Sodium ABG Chloride ABG Glucose Oxyhemoglobin Sodium Potassium Chloride 97.9 L Carbon Dioxide 33 H BUN 39 H Creatinine Glucose 119 H POC Glucose 138 H Lactic Acid Calcium Phosphorus Magnesium 2.60 H AST ALT Lactate Dehydrogenase Total Bilirubin Direct Bilirubin CK-MB (CK-2) C-Reactive Protein NT-Pro-B Natriuret Pep Total Protein Albumin Arterial Blood Glucose Urine WBC (Auto) Urine Creatinine 02/03/20 02/04/20 02/04/20 18:28 16:24 16:24 WBC RBC 3.38 L Hgb 8.6 L Hct 26.9 L MCHC RDW 19.5 H MCV 80 L MCH 26 L Lymph % (Auto) [place] % (Auto) [place] # Eos # Lymph # (Auto) [place] # (Auto) Eos # (Auto) Seg Neutrophils % Seg Neuts % (Manual) Baso # (Auto) Lymphocytes % (Manual) Monocytes % (Manual) Eosinophils % (Manual) Basophils % (Manual) Seg Neutrophils # Seg Neutrophils # Man Lymphocytes # (Manual) Monocytes # (Manual) Eosinophils # (Manual) Nucleated RBC % Basophils # (Manual) PT INR APTT Heparin Anti-Xa Level ABG pH POC ABG pO2 ABG pO2 ABG HCO3 ABG O2 Saturation ABG Base Excess POC ABG pCO2 ABG Hemoglobin ABG Oxyhemoglobin ABG Sodium ABG Chloride ABG Glucose Oxyhemoglobin Sodium Potassium 3.4 L Chloride Carbon Dioxide 31 H BUN 37 H Creatinine Glucose 70 L POC Glucose 118 H Lactic Acid Calcium Phosphorus Magnesium AST 169 H ALT 394 H Lactate Dehydrogenase Total Bilirubin 1.50 H Direct Bilirubin CK-MB (CK-2) C-Reactive Protein NT-Pro-B Natriuret Pep Total Protein Albumin 2.9 L Arterial Blood Glucose Urine WBC (Auto) Urine Creatinine 02/05/20 02/05/20 02/05/20 00:41 06:37 17:14 WBC RBC Hgb Hct MCHC RDW MCV MCH Lymph % (Auto) [place] % (Auto) [place] # Eos # Lymph # (Auto) [place] # (Auto) Eos # (Auto) Seg Neutrophils % Seg Neuts % (Manual) Baso # (Auto) Lymphocytes % (Manual) Monocytes % (Manual) Eosinophils % (Manual) Basophils % (Manual) Seg Neutrophils # Seg Neutrophils # Man Lymphocytes # (Manual) Monocytes # (Manual) Eosinophils # (Manual) Nucleated RBC % Basophils # (Manual) PT INR APTT Heparin Anti-Xa Level ABG pH POC ABG pO2 ABG pO2 ABG HCO3 ABG O2 Saturation ABG Base Excess POC ABG pCO2 ABG Hemoglobin ABG Oxyhemoglobin ABG Sodium ABG Chloride ABG Glucose Oxyhemoglobin Sodium Potassium 3.1 L Chloride Carbon Dioxide 35 H BUN 32 H Creatinine 0.7 L Glucose POC Glucose 69 L 127 H Lactic Acid Calcium Phosphorus Magnesium AST 134 H ALT 352 H Lactate Dehydrogenase Total Bilirubin 1.60 H Direct Bilirubin CK-MB (CK-2) C-Reactive Protein NT-Pro-B Natriuret Pep Total Protein Albumin 2.9 L Arterial Blood Glucose Urine WBC (Auto) Urine Creatinine 02/05/20 02/06/20 02/06/20 23:43 05:32 08:01 WBC RBC Hgb Hct MCHC RDW MCV MCH Lymph % (Auto) [place] % (Auto) [place] # Eos # Lymph # (Auto) [place] # (Auto) Eos # (Auto) Seg Neutrophils % Seg Neuts % (Manual) Baso # (Auto) Lymphocytes % (Manual) Monocytes % (Manual) Eosinophils % (Manual) Basophils % (Manual) Seg Neutrophils # Seg Neutrophils # Man Lymphocytes # (Manual) Monocytes # (Manual) Eosinophils # (Manual) Nucleated RBC % Basophils # (Manual) PT INR APTT Heparin Anti-Xa Level ABG pH POC ABG pO2 ABG pO2 ABG HCO3 ABG O2 Saturation ABG Base Excess POC ABG pCO2 ABG Hemoglobin ABG Oxyhemoglobin ABG Sodium ABG Chloride ABG Glucose Oxyhemoglobin Sodium Potassium Chloride Carbon Dioxide BUN 40 H Creatinine Glucose 132 H POC Glucose 129 H 131 H Lactic Acid Calcium Phosphorus Magnesium AST ALT Lactate Dehydrogenase Total Bilirubin Direct Bilirubin CK-MB (CK-2) C-Reactive Protein NT-Pro-B Natriuret Pep Total Protein Albumin Arterial Blood Glucose Urine WBC (Auto) Urine Creatinine 02/06/20 02/06/20 02/06/20 11:51 16:28 17:32 WBC RBC Hgb Hct MCHC RDW MCV MCH Lymph % (Auto) [place] % (Auto) [place] # Eos # Lymph # (Auto) [place] # (Auto) Eos # (Auto) Seg Neutrophils % Seg Neuts % (Manual) Baso # (Auto) Lymphocytes % (Manual) Monocytes % (Manual) Eosinophils % (Manual) Basophils % (Manual) Seg Neutrophils # Seg Neutrophils # Man Lymphocytes # (Manual) Monocytes # (Manual) Eosinophils # (Manual) Nucleated RBC % Basophils # (Manual) PT INR APTT Heparin Anti-Xa Level ABG pH POC ABG pO2 ABG pO2 ABG HCO3 ABG O2 Saturation ABG Base Excess POC ABG pCO2 ABG Hemoglobin ABG Oxyhemoglobin ABG Sodium ABG Chloride ABG Glucose Oxyhemoglobin Sodium Potassium Chloride Carbon Dioxide BUN Creatinine Glucose POC Glucose 167 H 129 H Lactic Acid Calcium Phosphorus Magnesium AST 824 H ALT 948 H Lactate Dehydrogenase Total Bilirubin 1.70 H Direct Bilirubin 1.2 H CK-MB (CK-2) C-Reactive Protein NT-Pro-B Natriuret Pep Total Protein Albumin 2.9 L Arterial Blood Glucose Urine WBC (Auto) Urine Creatinine 02/07/20 02/07/20 02/07/20 00:11 04:57 04:57 WBC RBC Hgb 9.2 L Hct 29.7 L MCHC 31 L RDW 20.2 H MCV 80 L MCH 25 L Lymph % (Auto) [place] % (Auto) [place] # Eos # Lymph # (Auto) [place] # (Auto) Eos # (Auto) Seg Neutrophils % Seg Neuts % (Manual) Baso # (Auto) Lymphocytes % (Manual) Monocytes % (Manual) Eosinophils % (Manual) Basophils % (Manual) Seg Neutrophils # Seg Neutrophils # Man Lymphocytes # (Manual) Monocytes # (Manual) Eosinophils # (Manual) Nucleated RBC % Basophils # (Manual) PT INR APTT Heparin Anti-Xa Level ABG pH POC ABG pO2 ABG pO2 ABG HCO3 ABG O2 Saturation ABG Base Excess POC ABG pCO2 ABG Hemoglobin ABG Oxyhemoglobin ABG Sodium ABG Chloride ABG Glucose Oxyhemoglobin Sodium Potassium 3.4 L D Chloride Carbon Dioxide 32 H BUN 39 H Creatinine Glucose 106 H POC Glucose 121 H Lactic Acid Calcium Phosphorus Magnesium AST ALT Lactate Dehydrogenase Total Bilirubin Direct Bilirubin CK-MB (CK-2) C-Reactive Protein NT-Pro-B Natriuret Pep Total Protein Albumin Arterial Blood Glucose Urine WBC (Auto) Urine Creatinine 02/07/20 02/07/20 02/07/20 15:03 15:03 17:11 WBC RBC Hgb Hct MCHC RDW MCV MCH Lymph % (Auto) [place] % (Auto) [place] # Eos # Lymph # (Auto) [place] # (Auto) Eos # (Auto) Seg Neutrophils % Seg Neuts % (Manual) Baso # (Auto) Lymphocytes % (Manual) Monocytes % (Manual) Eosinophils % (Manual) Basophils % (Manual) Seg Neutrophils # Seg Neutrophils # Man Lymphocytes # (Manual) Monocytes # (Manual) Eosinophils # (Manual) Nucleated RBC % Basophils # (Manual) PT 27.0 H INR 2.46 H APTT Heparin Anti-Xa Level ABG pH POC ABG pO2 ABG pO2 ABG HCO3 ABG O2 Saturation ABG Base Excess POC ABG pCO2 ABG Hemoglobin ABG Oxyhemoglobin ABG Sodium ABG Chloride ABG Glucose Oxyhemoglobin Sodium Potassium Chloride Carbon Dioxide BUN Creatinine Glucose POC Glucose 109 H Lactic Acid Calcium Phosphorus Magnesium AST 424 H ALT 796 H Lactate Dehydrogenase Total Bilirubin 1.60 H Direct Bilirubin 1.2 H CK-MB (CK-2) C-Reactive Protein NT-Pro-B Natriuret Pep Total Protein Albumin 2.9 L Arterial Blood Glucose Urine WBC (Auto) Urine Creatinine 02/08/20 02/08/20 02/08/20 12:14 17:44 19:00 WBC RBC Hgb Hct MCHC RDW MCV MCH Lymph % (Auto) [place] % (Auto) [place] # Eos # Lymph # (Auto) [place] # (Auto) Eos # (Auto) Seg Neutrophils % Seg Neuts % (Manual) Baso # (Auto) Lymphocytes % (Manual) Monocytes % (Manual) Eosinophils % (Manual) Basophils % (Manual) Seg Neutrophils # Seg Neutrophils # Man Lymphocytes # (Manual) Monocytes # (Manual) Eosinophils # (Manual) Nucleated RBC % Basophils # (Manual) PT INR APTT Heparin Anti-Xa Level ABG pH POC ABG pO2 ABG pO2 ABG HCO3 ABG O2 Saturation ABG Base Excess POC ABG pCO2 ABG Hemoglobin ABG Oxyhemoglobin ABG Sodium ABG Chloride ABG Glucose Oxyhemoglobin Sodium Potassium Chloride Carbon Dioxide BUN Creatinine Glucose POC Glucose 111 H 107 H Lactic Acid Calcium Phosphorus Magnesium AST 309 H ALT 650 H Lactate Dehydrogenase Total Bilirubin 1.30 H Direct Bilirubin 0.9 H CK-MB (CK-2) C-Reactive Protein NT-Pro-B Natriuret Pep Total Protein 6.2 L Albumin 2.7 L Arterial Blood Glucose Urine WBC (Auto) Urine Creatinine 02/09/20 02/09/20 02/09/20 05:41 12:28 18:07 WBC RBC Hgb Hct MCHC RDW MCV MCH Lymph % (Auto) [place] % (Auto) [place] # Eos # Lymph # (Auto) [place] # (Auto) Eos # (Auto) Seg Neutrophils % Seg Neuts % (Manual) Baso # (Auto) Lymphocytes % (Manual) Monocytes % (Manual) Eosinophils % (Manual) Basophils % (Manual) Seg Neutrophils # Seg Neutrophils # Man Lymphocytes # (Manual) Monocytes # (Manual) Eosinophils # (Manual) Nucleated RBC % Basophils # (Manual) PT INR APTT Heparin Anti-Xa Level ABG pH POC ABG pO2 ABG pO2 ABG HCO3 ABG O2 Saturation ABG Base Excess POC ABG pCO2 ABG Hemoglobin ABG Oxyhemoglobin ABG Sodium ABG Chloride ABG Glucose Oxyhemoglobin Sodium Potassium Chloride Carbon Dioxide BUN Creatinine Glucose POC Glucose 113 H 140 H 143 H Lactic Acid Calcium Phosphorus Magnesium AST ALT Lactate Dehydrogenase Total Bilirubin Direct Bilirubin CK-MB (CK-2) C-Reactive Protein NT-Pro-B Natriuret Pep Total Protein Albumin Arterial Blood Glucose Urine WBC (Auto) Urine Creatinine 02/09/20 02/09/20 02/10/20 21:40 23:45 06:00 WBC RBC Hgb Hct MCHC RDW MCV MCH Lymph % (Auto) [place] % (Auto) [place] # Eos # Lymph # (Auto) [place] # (Auto) Eos # (Auto) Seg Neutrophils % Seg Neuts % (Manual) Baso # (Auto) Lymphocytes % (Manual) Monocytes % (Manual) Eosinophils % (Manual) Basophils % (Manual) Seg Neutrophils # Seg Neutrophils # Man Lymphocytes # (Manual) Monocytes # (Manual) Eosinophils # (Manual) Nucleated RBC % Basophils # (Manual) PT INR APTT Heparin Anti-Xa Level ABG pH POC ABG pO2 ABG pO2 59.8 L ABG HCO3 33.3 H ABG O2 Saturation 88.9 L ABG Base Excess 7.4 H POC ABG pCO2 ABG Hemoglobin 10.4 L ABG Oxyhemoglobin ABG Sodium ABG Chloride ABG Glucose Oxyhemoglobin 86.3 L Sodium Potassium Chloride Carbon Dioxide BUN Creatinine Glucose POC Glucose 127 H 114 H Lactic Acid Calcium Phosphorus Magnesium AST ALT Lactate Dehydrogenase Total Bilirubin Direct Bilirubin CK-MB (CK-2) C-Reactive Protein NT-Pro-B Natriuret Pep Total Protein Albumin Arterial Blood Glucose Urine WBC (Auto) Urine Creatinine 02/10/20 02/10/20 02/10/20 07:40 07:40 13:38 WBC 11.5 H RBC Hgb 10.6 L Hct 34.7 L MCHC 31 L RDW 19.8 H MCV 79 L MCH 24 L Lymph % (Auto) [place] % (Auto) 9.2 H [place] # Eos # Lymph # (Auto) [place] # (Auto) 1.1 H Eos # (Auto) Seg Neutrophils % Seg Neuts % (Manual) Baso # (Auto) Lymphocytes % (Manual) Monocytes % (Manual) Eosinophils % (Manual) Basophils % (Manual) Seg Neutrophils # Seg Neutrophils # Man Lymphocytes # (Manual) Monocytes # (Manual) Eosinophils # (Manual) Nucleated RBC % Basophils # (Manual) PT INR APTT Heparin Anti-Xa Level ABG pH POC ABG pO2 ABG pO2 ABG HCO3 ABG O2 Saturation ABG Base Excess POC ABG pCO2 ABG Hemoglobin ABG Oxyhemoglobin ABG Sodium ABG Chloride ABG Glucose Oxyhemoglobin Sodium 151 H Potassium Chloride 107.2 H Carbon Dioxide 36 H BUN 25 H Creatinine 0.7 L Glucose 114 H POC Glucose 116 H Lactic Acid Calcium Phosphorus Magnesium 2.40 H AST ALT Lactate Dehydrogenase Total Bilirubin Direct Bilirubin CK-MB (CK-2) C-Reactive Protein NT-Pro-B Natriuret Pep Total Protein Albumin Arterial Blood Glucose Urine WBC (Auto) Urine Creatinine 02/10/20 02/11/20 02/11/20 17:44 05:47 12:21 WBC RBC Hgb Hct MCHC RDW MCV MCH Lymph % (Auto) [place] % (Auto) [place] # Eos # Lymph # (Auto) [place] # (Auto) Eos # (Auto) Seg Neutrophils % Seg Neuts % (Manual) Baso # (Auto) Lymphocytes % (Manual) Monocytes % (Manual) Eosinophils % (Manual) Basophils % (Manual) Seg Neutrophils # Seg Neutrophils # Man Lymphocytes # (Manual) Monocytes # (Manual) Eosinophils # (Manual) Nucleated RBC % Basophils # (Manual) PT INR APTT Heparin Anti-Xa Level ABG pH POC ABG pO2 ABG pO2 ABG HCO3 ABG O2 Saturation ABG Base Excess POC ABG pCO2 ABG Hemoglobin ABG Oxyhemoglobin ABG Sodium ABG Chloride ABG Glucose Oxyhemoglobin Sodium Potassium Chloride Carbon Dioxide BUN Creatinine Glucose POC Glucose 139 H 173 H 143 H Lactic Acid Calcium Phosphorus Magnesium AST ALT Lactate Dehydrogenase Total Bilirubin Direct Bilirubin CK-MB (CK-2) C-Reactive Protein NT-Pro-B Natriuret Pep Total Protein Albumin Arterial Blood Glucose Urine WBC (Auto) Urine Creatinine 02/11/20 02/11/20 02/12/20 13:43 14:11 00:15 WBC RBC Hgb Hct MCHC RDW MCV MCH Lymph % (Auto) [place] % (Auto) [place] # Eos # Lymph # (Auto) [place] # (Auto) Eos # (Auto) Seg Neutrophils % Seg Neuts % (Manual) Baso # (Auto) Lymphocytes % (Manual) Monocytes % (Manual) Eosinophils % (Manual) Basophils % (Manual) Seg Neutrophils # Seg Neutrophils # Man Lymphocytes # (Manual) Monocytes # (Manual) Eosinophils # (Manual) Nucleated RBC % Basophils # (Manual) PT INR APTT Heparin Anti-Xa Level ABG pH 7.502 H POC ABG pO2 77.7 L ABG pO2 ABG HCO3 ABG O2 Saturation ABG Base Excess POC ABG pCO2 ABG Hemoglobin 11.1 L ABG Oxyhemoglobin ABG Sodium ABG Chloride 108.0 H ABG Glucose 151 H Oxyhemoglobin Sodium Potassium Chloride Carbon Dioxide BUN Creatinine Glucose POC Glucose 130 H 125 H Lactic Acid Calcium Phosphorus Magnesium AST ALT Lactate Dehydrogenase Total Bilirubin Direct Bilirubin CK-MB (CK-2) C-Reactive Protein NT-Pro-B Natriuret Pep Total Protein Albumin Arterial Blood Glucose 151 H Urine WBC (Auto) Urine Creatinine 02/12/20 02/12/20 02/12/20 04:56 04:56 17:42 WBC RBC Hgb 9.9 L Hct 31.8 L MCHC 31 L RDW 19.4 H MCV 79 L MCH 25 L Lymph % (Auto) [place] % (Auto) 10.3 H [place] # Eos # Lymph # (Auto) [place] # (Auto) 1.0 H Eos # (Auto) Seg Neutrophils % Seg Neuts % (Manual) Baso # (Auto) Lymphocytes % (Manual) Monocytes % (Manual) Eosinophils % (Manual) Basophils % (Manual) Seg Neutrophils # Seg Neutrophils # Man Lymphocytes # (Manual) Monocytes # (Manual) Eosinophils # (Manual) Nucleated RBC % Basophils # (Manual) PT INR APTT Heparin Anti-Xa Level ABG pH POC ABG pO2 ABG pO2 ABG HCO3 ABG O2 Saturation ABG Base Excess POC ABG pCO2 ABG Hemoglobin ABG Oxyhemoglobin ABG Sodium ABG Chloride ABG Glucose Oxyhemoglobin Sodium 149 H Potassium Chloride 108.6 H Carbon Dioxide BUN 28 H Creatinine 0.7 L Glucose 108 H POC Glucose 113 H Lactic Acid Calcium Phosphorus Magnesium AST ALT Lactate Dehydrogenase Total Bilirubin Direct Bilirubin CK-MB (CK-2) C-Reactive Protein NT-Pro-B Natriuret Pep Total Protein Albumin Arterial Blood Glucose Urine WBC (Auto) Urine Creatinine 02/13/20 02/13/20 02/13/20 00:39 05:36 12:25 WBC RBC Hgb Hct MCHC RDW MCV MCH Lymph % (Auto) [place] % (Auto) [place] # Eos # Lymph # (Auto) [place] # (Auto) Eos # (Auto) Seg Neutrophils % Seg Neuts % (Manual) Baso # (Auto) Lymphocytes % (Manual) Monocytes % (Manual) Eosinophils % (Manual) Basophils % (Manual) Seg Neutrophils # Seg Neutrophils # Man Lymphocytes # (Manual) Monocytes # (Manual) Eosinophils # (Manual) Nucleated RBC % Basophils # (Manual) PT INR APTT Heparin Anti-Xa Level ABG pH POC ABG pO2 ABG pO2 ABG HCO3 ABG O2 Saturation ABG Base Excess POC ABG pCO2 ABG Hemoglobin ABG Oxyhemoglobin ABG Sodium ABG Chloride ABG Glucose Oxyhemoglobin Sodium Potassium Chloride Carbon Dioxide BUN Creatinine Glucose POC Glucose 129 H 126 H 129 H Lactic Acid Calcium Phosphorus Magnesium AST ALT Lactate Dehydrogenase Total Bilirubin Direct Bilirubin CK-MB (CK-2) C-Reactive Protein NT-Pro-B Natriuret Pep Total Protein Albumin Arterial Blood Glucose Urine WBC (Auto) Urine Creatinine 02/13/20 02/14/20 02/14/20 17:59 00:15 05:41 WBC RBC Hgb Hct MCHC RDW MCV MCH Lymph % (Auto) [place] % (Auto) [place] # Eos # Lymph # (Auto) [place] # (Auto) Eos # (Auto) Seg Neutrophils % Seg Neuts % (Manual) Baso # (Auto) Lymphocytes % (Manual) Monocytes % (Manual) Eosinophils % (Manual) Basophils % (Manual) Seg Neutrophils # Seg Neutrophils # Man Lymphocytes # (Manual) Monocytes # (Manual) Eosinophils # (Manual) Nucleated RBC % Basophils # (Manual) PT INR APTT Heparin Anti-Xa Level ABG pH POC ABG pO2 ABG pO2 ABG HCO3 ABG O2 Saturation ABG Base Excess POC ABG pCO2 ABG Hemoglobin ABG Oxyhemoglobin ABG Sodium ABG Chloride ABG Glucose Oxyhemoglobin Sodium Potassium Chloride Carbon Dioxide BUN Creatinine Glucose POC Glucose 153 H 130 H 130 H Lactic Acid Calcium Phosphorus Magnesium AST ALT Lactate Dehydrogenase Total Bilirubin Direct Bilirubin CK-MB (CK-2) C-Reactive Protein NT-Pro-B Natriuret Pep Total Protein Albumin Arterial Blood Glucose Urine WBC (Auto) Urine Creatinine 02/14/20 02/15/20 02/15/20 11:32 00:12 05:27 WBC RBC Hgb Hct MCHC RDW MCV MCH Lymph % (Auto) [place] % (Auto) [place] # Eos # Lymph # (Auto) [place] # (Auto) Eos # (Auto) Seg Neutrophils % Seg Neuts % (Manual) Baso # (Auto) Lymphocytes % (Manual) Monocytes % (Manual) Eosinophils % (Manual) Basophils % (Manual) Seg Neutrophils # Seg Neutrophils # Man Lymphocytes # (Manual) Monocytes # (Manual) Eosinophils # (Manual) Nucleated RBC % Basophils # (Manual) PT INR APTT Heparin Anti-Xa Level ABG pH POC ABG pO2 ABG pO2 ABG HCO3 ABG O2 Saturation ABG Base Excess POC ABG pCO2 ABG Hemoglobin ABG Oxyhemoglobin ABG Sodium ABG Chloride ABG Glucose Oxyhemoglobin Sodium Potassium Chloride Carbon Dioxide BUN Creatinine Glucose POC Glucose 157 H 124 H 111 H Lactic Acid Calcium Phosphorus Magnesium AST ALT Lactate Dehydrogenase Total Bilirubin Direct Bilirubin CK-MB (CK-2) C-Reactive Protein NT-Pro-B Natriuret Pep Total Protein Albumin Arterial Blood Glucose Urine WBC (Auto) Urine Creatinine 02/15/20 02/15/20 02/15/20 06:59 06:59 11:14 WBC RBC Hgb 10.4 L Hct 33.7 L MCHC 31 L RDW 19.4 H MCV 80 L MCH 24 L Lymph % (Auto) [place] % (Auto) [place] # Eos # Lymph # (Auto) [place] # (Auto) Eos # (Auto) Seg Neutrophils % Seg Neuts % (Manual) Baso # (Auto) Lymphocytes % (Manual) Monocytes % (Manual) Eosinophils % (Manual) Basophils % (Manual) 2.0 H Seg Neutrophils # Seg Neutrophils # Man Lymphocytes # (Manual) Monocytes # (Manual) Eosinophils # (Manual) Nucleated RBC % 1.0 H Basophils # (Manual) 0.2 H PT INR APTT Heparin Anti-Xa Level ABG pH POC ABG pO2 ABG pO2 ABG HCO3 ABG O2 Saturation ABG Base Excess POC ABG pCO2 ABG Hemoglobin ABG Oxyhemoglobin ABG Sodium ABG Chloride ABG Glucose Oxyhemoglobin Sodium 149 H Potassium Chloride 108.4 H Carbon Dioxide 31 H BUN 40 H Creatinine 0.7 L Glucose 150 H POC Glucose 128 H Lactic Acid Calcium Phosphorus Magnesium AST ALT Lactate Dehydrogenase Total Bilirubin Direct Bilirubin CK-MB (CK-2) C-Reactive Protein NT-Pro-B Natriuret Pep Total Protein Albumin Arterial Blood Glucose Urine WBC (Auto) Urine Creatinine 1102/15/20 02/16/20 17:46 23:50 05:03 WBC RBC Hgb Hct MCHC RDW MCV MCH Lymph % (Auto) [place] % (Auto) [place] # Eos # Lymph # (Auto) [place] # (Auto) Eos # (Auto) Seg Neutrophils % Seg Neuts % (Manual) Baso # (Auto) Lymphocytes % (Manual) Monocytes % (Manual) Eosinophils % (Manual) Basophils % (Manual) Seg Neutrophils # Seg Neutrophils # Man Lymphocytes # (Manual) Monocytes # (Manual) Eosinophils # (Manual) Nucleated RBC % Basophils # (Manual) PT INR APTT Heparin Anti-Xa Level ABG pH POC ABG pO2 ABG pO2 ABG HCO3 ABG O2 Saturation ABG Base Excess POC ABG pCO2 ABG Hemoglobin ABG Oxyhemoglobin ABG Sodium ABG Chloride ABG Glucose Oxyhemoglobin Sodium Potassium Chloride Carbon Dioxide BUN Creatinine Glucose POC Glucose 154 H 135 H 148 H Lactic Acid Calcium Phosphorus Magnesium AST ALT Lactate Dehydrogenase Total Bilirubin Direct Bilirubin CK-MB (CK-2) C-Reactive Protein NT-Pro-B Natriuret Pep Total Protein Albumin Arterial Blood Glucose Urine WBC (Auto) Urine Creatinine 02/16/20 02/16/20 02/16/20 07:53 11:28 17:52 WBC RBC Hgb Hct MCHC RDW MCV MCH Lymph % (Auto) [place] % (Auto) [place] # Eos # Lymph # (Auto) [place] # (Auto) Eos # (Auto) Seg Neutrophils % Seg Neuts % (Manual) Baso # (Auto) Lymphocytes % (Manual) Monocytes % (Manual) Eosinophils % (Manual) Basophils % (Manual) Seg Neutrophils # Seg Neutrophils # Man Lymphocytes # (Manual) Monocytes # (Manual) Eosinophils # (Manual) Nucleated RBC % Basophils # (Manual) PT INR APTT Heparin Anti-Xa Level ABG pH POC ABG pO2 ABG pO2 ABG HCO3 ABG O2 Saturation ABG Base Excess POC ABG pCO2 ABG Hemoglobin ABG Oxyhemoglobin ABG Sodium ABG Chloride ABG Glucose Oxyhemoglobin Sodium Potassium Chloride 107.9 H Carbon Dioxide BUN 38 H Creatinine 0.6 L Glucose 151 H POC Glucose 123 H 152 H Lactic Acid Calcium Phosphorus Magnesium AST ALT Lactate Dehydrogenase Total Bilirubin Direct Bilirubin CK-MB (CK-2) C-Reactive Protein NT-Pro-B Natriuret Pep Total Protein Albumin Arterial Blood Glucose Urine WBC (Auto) Urine Creatinine 02/16/20 02/17/20 02/17/20 23:49 06:24 11:36 WBC RBC Hgb Hct MCHC RDW MCV MCH Lymph % (Auto) [place] % (Auto) [place] # Eos # Lymph # (Auto) [place] # (Auto) Eos # (Auto) Seg Neutrophils % Seg Neuts % (Manual) Baso # (Auto) Lymphocytes % (Manual) Monocytes % (Manual) Eosinophils % (Manual) Basophils % (Manual) Seg Neutrophils # Seg Neutrophils # Man Lymphocytes # (Manual) Monocytes # (Manual) Eosinophils # (Manual) Nucleated RBC % Basophils # (Manual) PT INR APTT Heparin Anti-Xa Level ABG pH POC ABG pO2 ABG pO2 ABG HCO3 ABG O2 Saturation ABG Base Excess POC ABG pCO2 ABG Hemoglobin ABG Oxyhemoglobin ABG Sodium ABG Chloride ABG Glucose Oxyhemoglobin Sodium Potassium Chloride Carbon Dioxide BUN Creatinine Glucose POC Glucose 156 H 193 H 162 H Lactic Acid Calcium Phosphorus Magnesium AST ALT Lactate Dehydrogenase Total Bilirubin Direct Bilirubin CK-MB (CK-2) C-Reactive Protein NT-Pro-B Natriuret Pep Total Protein Albumin Arterial Blood Glucose Urine WBC (Auto) Urine Creatinine 02/17/20 02/17/20 02/18/20 17:55 23:28 05:11 WBC RBC Hgb Hct MCHC RDW MCV MCH Lymph % (Auto) [place] % (Auto) [place] # Eos # Lymph # (Auto) [place] # (Auto) Eos # (Auto) Seg Neutrophils % Seg Neuts % (Manual) Baso # (Auto) Lymphocytes % (Manual) Monocytes % (Manual) Eosinophils % (Manual) Basophils % (Manual) Seg Neutrophils # Seg Neutrophils # Man Lymphocytes # (Manual) Monocytes # (Manual) Eosinophils # (Manual) Nucleated RBC % Basophils # (Manual) PT INR APTT Heparin Anti-Xa Level ABG pH POC ABG pO2 ABG pO2 ABG HCO3 ABG O2 Saturation ABG Base Excess POC ABG pCO2 ABG Hemoglobin ABG Oxyhemoglobin ABG Sodium ABG Chloride ABG Glucose Oxyhemoglobin Sodium Potassium Chloride Carbon Dioxide BUN Creatinine Glucose POC Glucose 165 H 146 H 122 H Lactic Acid Calcium Phosphorus Magnesium AST ALT Lactate Dehydrogenase Total Bilirubin Direct Bilirubin CK-MB (CK-2) C-Reactive Protein NT-Pro-B Natriuret Pep Total Protein Albumin Arterial Blood Glucose Urine WBC (Auto) Urine Creatinine 02/18/20 02/18/2002/18/20 12:24 17:29 00:01 WBC RBC Hgb Hct MCHC RDW MCV MCH Lymph % (Auto) [place] % (Auto) [place] # Eos # Lymph # (Auto) [place] # (Auto) Eos # (Auto) Seg Neutrophils % Seg Neuts % (Manual) Baso # (Auto) Lymphocytes % (Manual) Monocytes % (Manual) Eosinophils % (Manual) Basophils % (Manual) Seg Neutrophils # Seg Neutrophils # Man Lymphocytes # (Manual) Monocytes # (Manual) Eosinophils # (Manual) Nucleated RBC % Basophils # (Manual) PT INR APTT Heparin Anti-Xa Level ABG pH POC ABG pO2 ABG pO2 ABG HCO3 ABG O2 Saturation ABG Base Excess POC ABG pCO2 ABG Hemoglobin ABG Oxyhemoglobin ABG Sodium ABG Chloride ABG Glucose Oxyhemoglobin Sodium Potassium Chloride Carbon Dioxide BUN Creatinine Glucose POC Glucose 162 H 136 H 145 H Lactic Acid Calcium Phosphorus Magnesium AST ALT Lactate Dehydrogenase Total Bilirubin Direct Bilirubin CK-MB (CK-2) C-Reactive Protein NT-Pro-B Natriuret Pep Total Protein Albumin Arterial Blood Glucose Urine WBC (Auto) Urine Creatinine 02/19/20 02/19/20 02/19/20 05:53 11:44 17:32 WBC RBC Hgb Hct MCHC RDW MCV MCH Lymph % (Auto) [place] % (Auto) [place] # Eos # Lymph # (Auto) [place] # (Auto) Eos # (Auto) Seg Neutrophils % Seg Neuts % (Manual) Baso # (Auto) Lymphocytes % (Manual) Monocytes % (Manual) Eosinophils % (Manual) Basophils % (Manual) Seg Neutrophils # Seg Neutrophils # Man Lymphocytes # (Manual) Monocytes # (Manual) Eosinophils # (Manual) Nucleated RBC % Basophils # (Manual) PT INR APTT Heparin Anti-Xa Level ABG pH POC ABG pO2 ABG pO2 ABG HCO3 ABG O2 Saturation ABG Base Excess POC ABG pCO2 ABG Hemoglobin ABG Oxyhemoglobin ABG Sodium ABG Chloride ABG Glucose Oxyhemoglobin Sodium Potassium Chloride Carbon Dioxide BUN Creatinine Glucose POC Glucose 116 H 120 H 154 H Lactic Acid Calcium Phosphorus Magnesium AST ALT Lactate Dehydrogenase Total Bilirubin Direct Bilirubin CK-MB (CK-2) C-Reactive Protein NT-Pro-B Natriuret Pep Total Protein Albumin Arterial Blood Glucose Urine WBC (Auto) Urine Creatinine 02/19/20 02/20/20 02/20/20 23:43 00:24 00:24 WBC RBC Hgb 9.4 L Hct 30.0 L MCHC 31 L RDW 20.4 H MCV 79 L MCH 25 L Lymph % (Auto) [place] % (Auto) 8.5 H [place] # Eos # Lymph # (Auto) [place] # (Auto) Eos # (Auto) Seg Neutrophils % Seg Neuts % (Manual) Baso # (Auto) Lymphocytes % (Manual) Monocytes % (Manual) Eosinophils % (Manual) Basophils % (Manual) Seg Neutrophils # Seg Neutrophils # Man Lymphocytes # (Manual) Monocytes # (Manual) Eosinophils # (Manual) Nucleated RBC % Basophils # (Manual) PT INR APTT Heparin Anti-Xa Level ABG pH POC ABG pO2 ABG pO2 ABG HCO3 ABG O2 Saturation ABG Base Excess POC ABG pCO2 ABG Hemoglobin ABG Oxyhemoglobin ABG Sodium ABG Chloride ABG Glucose Oxyhemoglobin Sodium 147 H Potassium 3.4 L Chloride Carbon Dioxide 31 H BUN 34 H Creatinine 0.5 L Glucose 135 H POC Glucose 122 H Lactic Acid Calcium Phosphorus Magnesium AST ALT Lactate Dehydrogenase Total Bilirubin Direct Bilirubin CK-MB (CK-2) C-Reactive Protein NT-Pro-B Natriuret Pep Total Protein Albumin Arterial Blood Glucose Urine WBC (Auto) Urine Creatinine 02/20/20 02/20/20 02/20/20 06:07 06:45 12:03 WBC RBC Hgb Hct MCHC RDW MCV MCH Lymph % (Auto) [place] % (Auto) [place] # Eos # Lymph # (Auto) [place] # (Auto) Eos # (Auto) Seg Neutrophils % Seg Neuts % (Manual) Baso # (Auto) Lymphocytes % (Manual) Monocytes % (Manual) Eosinophils % (Manual) Basophils % (Manual) Seg Neutrophils # Seg Neutrophils # Man Lymphocytes # (Manual) Monocytes # (Manual) Eosinophils # (Manual) Nucleated RBC % Basophils # (Manual) PT INR APTT Heparin Anti-Xa Level ABG pH 7.461 H POC ABG pO2 ABG pO2 ABG HCO3 33.3 H ABG O2 Saturation ABG Base Excess 8.4 H POC ABG pCO2 ABG Hemoglobin 10.0 L ABG Oxyhemoglobin ABG Sodium ABG Chloride ABG Glucose Oxyhemoglobin 94.1 L Sodium Potassium Chloride Carbon Dioxide BUN Creatinine Glucose POC Glucose 109 H 128 H Lactic Acid Calcium Phosphorus Magnesium AST ALT Lactate Dehydrogenase Total Bilirubin Direct Bilirubin CK-MB (CK-2) C-Reactive Protein NT-Pro-B Natriuret Pep Total Protein Albumin Arterial Blood Glucose Urine WBC (Auto) Urine Creatinine 02/20/20 02/20/20 02/21/20 18:02 23:55 05:42 WBC RBC Hgb Hct MCHC RDW MCV MCH Lymph % (Auto) [place] % (Auto) [place] # Eos # Lymph # (Auto) [place] # (Auto) Eos # (Auto) Seg Neutrophils % Seg Neuts % (Manual) Baso # (Auto) Lymphocytes % (Manual) Monocytes % (Manual) Eosinophils % (Manual) Basophils % (Manual) Seg Neutrophils # Seg Neutrophils # Man Lymphocytes # (Manual) Monocytes # (Manual) Eosinophils # (Manual) Nucleated RBC % Basophils # (Manual) PT INR APTT Heparin Anti-Xa Level ABG pH POC ABG pO2 ABG pO2 ABG HCO3 ABG O2 Saturation ABG Base Excess POC ABG pCO2 ABG Hemoglobin ABG Oxyhemoglobin ABG Sodium ABG Chloride ABG Glucose Oxyhemoglobin Sodium Potassium Chloride Carbon Dioxide BUN Creatinine Glucose POC Glucose 118 H 125 H 127 H Lactic Acid Calcium Phosphorus Magnesium AST ALT Lactate Dehydrogenase Total Bilirubin Direct Bilirubin CK-MB (CK-2) C-Reactive Protein NT-Pro-B Natriuret Pep Total Protein Albumin Arterial Blood Glucose Urine WBC (Auto) Urine Creatinine 02/21/20 02/21/20 02/21/20 12:10 17:35 23:40 WBC RBC Hgb Hct MCHC RDW MCV MCH Lymph % (Auto) [place] % (Auto) [place] # Eos # Lymph # (Auto) [place] # (Auto) Eos # (Auto) Seg Neutrophils % Seg Neuts % (Manual) Baso # (Auto) Lymphocytes % (Manual) Monocytes % (Manual) Eosinophils % (Manual) Basophils % (Manual) Seg Neutrophils # Seg Neutrophils # Man Lymphocytes # (Manual) Monocytes # (Manual) Eosinophils # (Manual) Nucleated RBC % Basophils # (Manual) PT INR APTT Heparin Anti-Xa Level ABG pH POC ABG pO2 ABG pO2 ABG HCO3 ABG O2 Saturation ABG Base Excess POC ABG pCO2 ABG Hemoglobin ABG Oxyhemoglobin ABG Sodium ABG Chloride ABG Glucose Oxyhemoglobin Sodium Potassium Chloride Carbon Dioxide BUN Creatinine Glucose POC Glucose 128 H 113 H 125 H Lactic Acid Calcium Phosphorus Magnesium AST ALT Lactate Dehydrogenase Total Bilirubin Direct Bilirubin CK-MB (CK-2) C-Reactive Protein NT-Pro-B Natriuret Pep Total Protein Albumin Arterial Blood Glucose Urine WBC (Auto) Urine Creatinine 02/22/20 02/22/20 02/22/20 05:57 08:06 08:06 WBC RBC Hgb 10.8 L Hct 35.2 L MCHC 31 L RDW 21.8 H MCV 80 L MCH 25 L Lymph % (Auto) [place] % (Auto) [place] # Eos # Lymph # (Auto) [place] # (Auto) Eos # (Auto) Seg Neutrophils % 71.5 H Seg Neuts % (Manual) Baso # (Auto) Lymphocytes % (Manual) Monocytes % (Manual) Eosinophils % (Manual) Basophils % (Manual) Seg Neutrophils # Seg Neutrophils # Man Lymphocytes # (Manual) Monocytes # (Manual) Eosinophils # (Manual) Nucleated RBC % Basophils # (Manual) PT INR APTT Heparin Anti-Xa Level ABG pH POC ABG pO2 ABG pO2 ABG HCO3 ABG O2 Saturation ABG Base Excess POC ABG pCO2 ABG Hemoglobin ABG Oxyhemoglobin ABG Sodium ABG Chloride ABG Glucose Oxyhemoglobin Sodium 146 H Potassium Chloride Carbon Dioxide 34 H BUN 21 H Creatinine 0.4 L Glucose 149 H POC Glucose 138 H Lactic Acid Calcium Phosphorus Magnesium AST ALT Lactate Dehydrogenase Total Bilirubin Direct Bilirubin CK-MB (CK-2) C-Reactive Protein NT-Pro-B Natriuret Pep Total Protein Albumin Arterial Blood Glucose Urine WBC (Auto) Urine Creatinine 02/22/20 02/22/20 02/22/20 11:47 17:11 23:25 WBC RBC Hgb Hct MCHC RDW MCV MCH Lymph % (Auto) [place] % (Auto) [place] # Eos # Lymph # (Auto) [place] # (Auto) Eos # (Auto) Seg Neutrophils % Seg Neuts % (Manual) Baso # (Auto) Lymphocytes % (Manual) Monocytes % (Manual) Eosinophils % (Manual) Basophils % (Manual) Seg Neutrophils # Seg Neutrophils # Man Lymphocytes # (Manual) Monocytes # (Manual) Eosinophils # (Manual) Nucleated RBC % Basophils # (Manual) PT INR APTT Heparin Anti-Xa Level ABG pH POC ABG pO2 ABG pO2 ABG HCO3 ABG O2 Saturation ABG Base Excess POC ABG pCO2 ABG Hemoglobin ABG Oxyhemoglobin ABG Sodium ABG Chloride ABG Glucose Oxyhemoglobin Sodium Potassium Chloride Carbon Dioxide BUN Creatinine Glucose POC Glucose 149 H 144 H 142 H Lactic Acid Calcium Phosphorus Magnesium AST ALT Lactate Dehydrogenase Total Bilirubin Direct Bilirubin CK-MB (CK-2) C-Reactive Protein NT-Pro-B Natriuret Pep Total Protein Albumin Arterial Blood Glucose Urine WBC (Auto) Urine Creatinine 02/23/20 02/23/20 02/23/20 05:22 11:37 18:14 WBC RBC Hgb Hct MCHC RDW MCV MCH Lymph % (Auto) [place] % (Auto) [place] # Eos # Lymph # (Auto) [place] # (Auto) Eos # (Auto) Seg Neutrophils % Seg Neuts % (Manual) Baso # (Auto) Lymphocytes % (Manual) Monocytes % (Manual) Eosinophils % (Manual) Basophils % (Manual) Seg Neutrophils # Seg Neutrophils # Man Lymphocytes # (Manual) Monocytes # (Manual) Eosinophils # (Manual) Nucleated RBC % Basophils # (Manual) PT INR APTT Heparin Anti-Xa Level ABG pH POC ABG pO2 ABG pO2 ABG HCO3 ABG O2 Saturation ABG Base Excess POC ABG pCO2 ABG Hemoglobin ABG Oxyhemoglobin ABG Sodium ABG Chloride ABG Glucose Oxyhemoglobin Sodium Potassium Chloride Carbon Dioxide BUN Creatinine Glucose POC Glucose 144 H 113 H 127 H Lactic Acid Calcium Phosphorus Magnesium AST ALT Lactate Dehydrogenase Total Bilirubin Direct Bilirubin CK-MB (CK-2) C-Reactive Protein NT-Pro-B Natriuret Pep Total Protein Albumin Arterial Blood Glucose Urine WBC (Auto) Urine Creatinine 02/23/20 02/24/20 02/24/20 23:45 05:50 11:24 WBC RBC Hgb Hct MCHC RDW MCV MCH Lymph % (Auto) [place] % (Auto) [place] # Eos # Lymph # (Auto) [place] # (Auto) Eos # (Auto) Seg Neutrophils % Seg Neuts % (Manual) Baso # (Auto) Lymphocytes % (Manual) Monocytes % (Manual) Eosinophils % (Manual) Basophils % (Manual) Seg Neutrophils # Seg Neutrophils # Man Lymphocytes # (Manual) Monocytes # (Manual) Eosinophils # (Manual) Nucleated RBC % Basophils # (Manual) PT INR APTT Heparin Anti-Xa Level ABG pH POC ABG pO2 ABG pO2 ABG HCO3 ABG O2 Saturation ABG Base Excess POC ABG pCO2 ABG Hemoglobin ABG Oxyhemoglobin ABG Sodium ABG Chloride ABG Glucose Oxyhemoglobin Sodium Potassium Chloride Carbon Dioxide BUN Creatinine Glucose POC Glucose 123 H 117 H 126 H Lactic Acid Calcium Phosphorus Magnesium AST ALT Lactate Dehydrogenase Total Bilirubin Direct Bilirubin CK-MB (CK-2) C-Reactive Protein NT-Pro-B Natriuret Pep Total Protein Albumin Arterial Blood Glucose Urine WBC (Auto) Urine Creatinine 02/24/20 02/24/20 02/25/20 18:35 23:27 05:20 WBC RBC Hgb Hct MCHC RDW MCV MCH Lymph % (Auto) [place] % (Auto) [place] # Eos # Lymph # (Auto) [place] # (Auto) Eos # (Auto) Seg Neutrophils % Seg Neuts % (Manual) Baso # (Auto) Lymphocytes % (Manual) Monocytes % (Manual) Eosinophils % (Manual) Basophils % (Manual) Seg Neutrophils # Seg Neutrophils # Man Lymphocytes # (Manual) Monocytes # (Manual) Eosinophils # (Manual) Nucleated RBC % Basophils # (Manual) PT INR APTT Heparin Anti-Xa Level ABG pH POC ABG pO2 ABG pO2 ABG HCO3 ABG O2 Saturation ABG Base Excess POC ABG pCO2 ABG Hemoglobin ABG Oxyhemoglobin ABG Sodium ABG Chloride ABG Glucose Oxyhemoglobin Sodium Potassium Chloride Carbon Dioxide BUN Creatinine Glucose POC Glucose 121 H 127 H 133 H Lactic Acid Calcium Phosphorus Magnesium AST ALT Lactate Dehydrogenase Total Bilirubin Direct Bilirubin CK-MB (CK-2) C-Reactive Protein NT-Pro-B Natriuret Pep Total Protein Albumin Arterial Blood Glucose Urine WBC (Auto) Urine Creatinine 02/25/20 02/25/20 02/25/20 12:08 17:26 23:33 WBC RBC Hgb Hct MCHC RDW MCV MCH Lymph % (Auto) [place] % (Auto) [place] # Eos # Lymph # (Auto) [place] # (Auto) Eos # (Auto) Seg Neutrophils % Seg Neuts % (Manual) Baso # (Auto) Lymphocytes % (Manual) Monocytes % (Manual) Eosinophils % (Manual) Basophils % (Manual) Seg Neutrophils # Seg Neutrophils # Man Lymphocytes # (Manual) Monocytes # (Manual) Eosinophils # (Manual) Nucleated RBC % Basophils # (Manual) PT INR APTT Heparin Anti-Xa Level ABG pH POC ABG pO2 ABG pO2 ABG HCO3 ABG O2 Saturation ABG Base Excess POC ABG pCO2 ABG Hemoglobin ABG Oxyhemoglobin ABG Sodium ABG Chloride ABG Glucose Oxyhemoglobin Sodium Potassium Chloride Carbon Dioxide BUN Creatinine Glucose POC Glucose 109 H 120 H 120 H Lactic Acid Calcium Phosphorus Magnesium AST ALT Lactate Dehydrogenase Total Bilirubin Direct Bilirubin CK-MB (CK-2) C-Reactive Protein NT-Pro-B Natriuret Pep Total Protein Albumin Arterial Blood Glucose Urine WBC (Auto) Urine Creatinine 02/26/20 02/26/20 02/27/20 05:33 07:50 12:13 WBC RBC Hgb Hct MCHC RDW MCV MCH Lymph % (Auto) [place] % (Auto) [place] # Eos # Lymph # (Auto) [place] # (Auto) Eos # (Auto) Seg Neutrophils % Seg Neuts % (Manual) Baso # (Auto) Lymphocytes % (Manual) Monocytes % (Manual) Eosinophils % (Manual) Basophils % (Manual) Seg Neutrophils # Seg Neutrophils # Man Lymphocytes # (Manual) Monocytes # (Manual) Eosinophils # (Manual) Nucleated RBC % Basophils # (Manual) PT INR APTT Heparin Anti-Xa Level ABG pH POC ABG pO2 ABG pO2 ABG HCO3 ABG O2 Saturation ABG Base Excess POC ABG pCO2 ABG Hemoglobin ABG Oxyhemoglobin ABG Sodium ABG Chloride ABG Glucose Oxyhemoglobin Sodium Potassium Chloride Carbon Dioxide BUN Creatinine Glucose POC Glucose 106 H 130 H Lactic Acid Calcium Phosphorus Magnesium AST ALT Lactate Dehydrogenase Total Bilirubin Direct Bilirubin CK-MB (CK-2) C-Reactive Protein NT-Pro-B Natriuret Pep Total Protein Albumin Arterial Blood Glucose Urine WBC (Auto) > 182.0 H Urine Creatinine 02/27/20 02/27/20 02/28/20 18:20 23:33 05:01 WBC RBC Hgb Hct MCHC RDW MCV MCH Lymph % (Auto) [place] % (Auto) [place] # Eos # Lymph # (Auto) [place] # (Auto) Eos # (Auto) Seg Neutrophils % Seg Neuts % (Manual) Baso # (Auto) Lymphocytes % (Manual) Monocytes % (Manual) Eosinophils % (Manual) Basophils % (Manual) Seg Neutrophils # Seg Neutrophils # Man Lymphocytes # (Manual) Monocytes # (Manual) Eosinophils # (Manual) Nucleated RBC % Basophils # (Manual) PT INR APTT Heparin Anti-Xa Level ABG pH POC ABG pO2 ABG pO2 ABG HCO3 ABG O2 Saturation ABG Base Excess POC ABG pCO2 ABG Hemoglobin ABG Oxyhemoglobin ABG Sodium ABG Chloride ABG Glucose Oxyhemoglobin Sodium Potassium Chloride Carbon Dioxide BUN Creatinine Glucose POC Glucose 109 H 124 H 134 H Lactic Acid Calcium Phosphorus Magnesium AST ALT Lactate Dehydrogenase Total Bilirubin Direct Bilirubin CK-MB (CK-2) C-Reactive Protein NT-Pro-B Natriuret Pep Total Protein Albumin Arterial Blood Glucose Urine WBC (Auto) Urine Creatinine 02/28/20 02/28/20 02/28/20 11:54 18:16 23:03 WBC RBC Hgb Hct MCHC RDW MCV MCH Lymph % (Auto) [place] % (Auto) [place] # Eos # Lymph # (Auto) [place] # (Auto) Eos # (Auto) Seg Neutrophils % Seg Neuts % (Manual) Baso # (Auto) Lymphocytes % (Manual) Monocytes % (Manual) Eosinophils % (Manual) Basophils % (Manual) Seg Neutrophils # Seg Neutrophils # Man Lymphocytes # (Manual) Monocytes # (Manual) Eosinophils # (Manual) Nucleated RBC % Basophils # (Manual) PT INR APTT Heparin Anti-Xa Level ABG pH POC ABG pO2 ABG pO2 ABG HCO3 ABG O2 Saturation ABG Base Excess POC ABG pCO2 ABG Hemoglobin ABG Oxyhemoglobin ABG Sodium ABG Chloride ABG Glucose Oxyhemoglobin Sodium Potassium Chloride Carbon Dioxide BUN Creatinine Glucose POC Glucose 133 H 134 H 146 H Lactic Acid Calcium Phosphorus Magnesium AST ALT Lactate Dehydrogenase Total Bilirubin Direct Bilirubin CK-MB (CK-2) C-Reactive Protein NT-Pro-B Natriuret Pep Total Protein Albumin Arterial Blood Glucose Urine WBC (Auto) Urine Creatinine 02/29/20 02/29/20 02/29/20 05:24 11:34 17:12 WBC RBC Hgb Hct MCHC RDW MCV MCH Lymph % (Auto) [place] % (Auto) [place] # Eos # Lymph # (Auto) [place] # (Auto) Eos # (Auto) Seg Neutrophils % Seg Neuts % (Manual) Baso # (Auto) Lymphocytes % (Manual) Monocytes % (Manual) Eosinophils % (Manual) Basophils % (Manual) Seg Neutrophils # Seg Neutrophils # Man Lymphocytes # (Manual) Monocytes # (Manual) Eosinophils # (Manual) Nucleated RBC % Basophils # (Manual) PT INR APTT Heparin Anti-Xa Level ABG pH POC ABG pO2 ABG pO2 ABG HCO3 ABG O2 Saturation ABG Base Excess POC ABG pCO2 ABG Hemoglobin ABG Oxyhemoglobin ABG Sodium ABG Chloride ABG Glucose Oxyhemoglobin Sodium Potassium Chloride Carbon Dioxide BUN Creatinine Glucose POC Glucose 139 H 141 H 157 H Lactic Acid Calcium Phosphorus Magnesium AST ALT Lactate Dehydrogenase Total Bilirubin Direct Bilirubin CK-MB (CK-2) C-Reactive Protein NT-Pro-B Natriuret Pep Total Protein Albumin Arterial Blood Glucose Urine WBC (Auto) Urine Creatinine 02/29/20 03/01/20 03/01/20 23:35 06:00 11:53 WBC RBC Hgb Hct MCHC RDW MCV MCH Lymph % (Auto) [place] % (Auto) [place] # Eos # Lymph # (Auto) [place] # (Auto) Eos # (Auto) Seg Neutrophils % Seg Neuts % (Manual) Baso # (Auto) Lymphocytes % (Manual) Monocytes % (Manual) Eosinophils % (Manual) Basophils % (Manual) Seg Neutrophils # Seg Neutrophils # Man Lymphocytes # (Manual) Monocytes # (Manual) Eosinophils # (Manual) Nucleated RBC % Basophils # (Manual) PT INR APTT Heparin Anti-Xa Level ABG pH POC ABG pO2 ABG pO2 ABG HCO3 ABG O2 Saturation ABG Base Excess POC ABG pCO2 ABG Hemoglobin ABG Oxyhemoglobin ABG Sodium ABG Chloride ABG Glucose Oxyhemoglobin Sodium Potassium Chloride Carbon Dioxide BUN Creatinine Glucose POC Glucose 120 H 132 H 136 H Lactic Acid Calcium Phosphorus Magnesium AST ALT Lactate Dehydrogenase Total Bilirubin Direct Bilirubin CK-MB (CK-2) C-Reactive Protein NT-Pro-B Natriuret Pep Total Protein Albumin Arterial Blood Glucose Urine WBC (Auto) Urine Creatinine 03/01/20 03/01/20 03/02/20 17:36 23:16 05:12 WBC RBC Hgb Hct MCHC RDW MCV MCH Lymph % (Auto) [place] % (Auto) [place] # Eos # Lymph # (Auto) [place] # (Auto) Eos # (Auto) Seg Neutrophils % Seg Neuts % (Manual) Baso # (Auto) Lymphocytes % (Manual) Monocytes % (Manual) Eosinophils % (Manual) Basophils % (Manual) Seg Neutrophils # Seg Neutrophils # Man Lymphocytes # (Manual) Monocytes # (Manual) Eosinophils # (Manual) Nucleated RBC % Basophils # (Manual) PT INR APTT Heparin Anti-Xa Level ABG pH POC ABG pO2 ABG pO2 ABG HCO3 ABG O2 Saturation ABG Base Excess POC ABG pCO2 ABG Hemoglobin ABG Oxyhemoglobin ABG Sodium ABG Chloride ABG Glucose Oxyhemoglobin Sodium Potassium Chloride Carbon Dioxide BUN Creatinine Glucose POC Glucose 171 H 164 H 176 H Lactic Acid Calcium Phosphorus Magnesium AST ALT Lactate Dehydrogenase Total Bilirubin Direct Bilirubin CK-MB (CK-2) C-Reactive Protein NT-Pro-B Natriuret Pep Total Protein Albumin Arterial Blood Glucose Urine WBC (Auto) Urine Creatinine 03/02/20 03/02/20 03/03/20 11:42 18:01 00:06 WBC RBC Hgb Hct MCHC RDW MCV MCH Lymph % (Auto) [place] % (Auto) [place] # Eos # Lymph # (Auto) [place] # (Auto) Eos # (Auto) Seg Neutrophils % Seg Neuts % (Manual) Baso # (Auto) Lymphocytes % (Manual) Monocytes % (Manual) Eosinophils % (Manual) Basophils % (Manual) Seg Neutrophils # Seg Neutrophils # Man Lymphocytes # (Manual) Monocytes # (Manual) Eosinophils # (Manual) Nucleated RBC % Basophils # (Manual) PT INR APTT Heparin Anti-Xa Level ABG pH POC ABG pO2 ABG pO2 ABG HCO3 ABG O2 Saturation ABG Base Excess POC ABG pCO2 ABG Hemoglobin ABG Oxyhemoglobin ABG Sodium ABG Chloride ABG Glucose Oxyhemoglobin Sodium Potassium Chloride Carbon Dioxide BUN Creatinine Glucose POC Glucose 150 H 156 H 156 H Lactic Acid Calcium Phosphorus Magnesium AST ALT Lactate Dehydrogenase Total Bilirubin Direct Bilirubin CK-MB (CK-2) C-Reactive Protein NT-Pro-B Natriuret Pep Total Protein Albumin Arterial Blood Glucose Urine WBC (Auto) Urine Creatinine 03/03/20 03/03/20 03/03/20 03:31 11:20 16:55 WBC RBC Hgb Hct MCHC RDW MCV MCH Lymph % (Auto) [place] % (Auto) [place] # Eos # Lymph # (Auto) [place] # (Auto) Eos # (Auto) Seg Neutrophils % Seg Neuts % (Manual) Baso # (Auto) Lymphocytes % (Manual) Monocytes % (Manual) Eosinophils % (Manual) Basophils % (Manual) Seg Neutrophils # Seg Neutrophils # Man Lymphocytes # (Manual) Monocytes # (Manual) Eosinophils # (Manual) Nucleated RBC % Basophils # (Manual) PT INR APTT Heparin Anti-Xa Level ABG pH POC ABG pO2 ABG pO2 ABG HCO3 ABG O2 Saturation ABG Base Excess POC ABG pCO2 ABG Hemoglobin ABG Oxyhemoglobin ABG Sodium ABG Chloride ABG Glucose Oxyhemoglobin Sodium Potassium Chloride Carbon Dioxide BUN Creatinine Glucose POC Glucose 164 H 125 H 211 H Lactic Acid Calcium Phosphorus Magnesium AST ALT Lactate Dehydrogenase Total Bilirubin Direct Bilirubin CK-MB (CK-2) C-Reactive Protein NT-Pro-B Natriuret Pep Total Protein Albumin Arterial Blood Glucose Urine WBC (Auto) Urine Creatinine 03/04/20 03/04/20 03/04/20 00:29 05:20 12:09 WBC RBC Hgb Hct MCHC RDW MCV MCH Lymph % (Auto) [place] % (Auto) [place] # Eos # Lymph # (Auto) [place] # (Auto) Eos # (Auto) Seg Neutrophils % Seg Neuts % (Manual) Baso # (Auto) Lymphocytes % (Manual) Monocytes % (Manual) Eosinophils % (Manual) Basophils % (Manual) Seg Neutrophils # Seg Neutrophils # Man Lymphocytes # (Manual) Monocytes # (Manual) Eosinophils # (Manual) Nucleated RBC % Basophils # (Manual) PT INR APTT Heparin Anti-Xa Level ABG pH POC ABG pO2 ABG pO2 ABG HCO3 ABG O2 Saturation ABG Base Excess POC ABG pCO2 ABG Hemoglobin ABG Oxyhemoglobin ABG Sodium ABG Chloride ABG Glucose Oxyhemoglobin Sodium Potassium Chloride Carbon Dioxide BUN Creatinine Glucose POC Glucose 169 H 154 H 197 H Lactic Acid Calcium Phosphorus Magnesium AST ALT Lactate Dehydrogenase Total Bilirubin Direct Bilirubin CK-MB (CK-2) C-Reactive Protein NT-Pro-B Natriuret Pep Total Protein Albumin Arterial Blood Glucose Urine WBC (Auto) Urine Creatinine 03/04/20 03/04/20 03/04/20 18:00 20:38 20:38 WBC RBC Hgb 10.1 L Hct 32.7 L MCHC 31 L RDW 24.7 H MCV 79 L MCH 24 L Lymph % (Auto) [place] % (Auto) 8.9 H [place] # Eos # Lymph # (Auto) [place] # (Auto) Eos # (Auto) Seg Neutrophils % Seg Neuts % (Manual) Baso # (Auto) Lymphocytes % (Manual) Monocytes % (Manual) Eosinophils % (Manual) Basophils % (Manual) Seg Neutrophils # Seg Neutrophils # Man Lymphocytes # (Manual) Monocytes # (Manual) Eosinophils # (Manual) Nucleated RBC % Basophils # (Manual) PT INR APTT Heparin Anti-Xa Level ABG pH POC ABG pO2 ABG pO2 ABG HCO3 ABG O2 Saturation ABG Base Excess POC ABG pCO2 ABG Hemoglobin ABG Oxyhemoglobin ABG Sodium ABG Chloride ABG Glucose Oxyhemoglobin Sodium 136 L Potassium Chloride Carbon Dioxide BUN 25 H Creatinine 0.5 L Glucose 148 H POC Glucose 146 H Lactic Acid Calcium Phosphorus Magnesium AST ALT Lactate Dehydrogenase Total Bilirubin Direct Bilirubin CK-MB (CK-2) C-Reactive Protein NT-Pro-B Natriuret Pep Total Protein Albumin Arterial Blood Glucose Urine WBC (Auto) Urine Creatinine 03/04/20 03/05/20 03/05/20 23:17 05:44 11:32 WBC RBC Hgb Hct MCHC RDW MCV MCH Lymph % (Auto) [place] % (Auto) [place] # Eos # Lymph # (Auto) [place] # (Auto) Eos # (Auto) Seg Neutrophils % Seg Neuts % (Manual) Baso # (Auto) Lymphocytes % (Manual) Monocytes % (Manual) Eosinophils % (Manual) Basophils % (Manual) Seg Neutrophils # Seg Neutrophils # Man Lymphocytes # (Manual) Monocytes # (Manual) Eosinophils # (Manual) Nucleated RBC % Basophils # (Manual) PT INR APTT Heparin Anti-Xa Level ABG pH POC ABG pO2 ABG pO2 ABG HCO3 ABG O2 Saturation ABG Base Excess POC ABG pCO2 ABG Hemoglobin ABG Oxyhemoglobin ABG Sodium ABG Chloride ABG Glucose Oxyhemoglobin Sodium Potassium Chloride Carbon Dioxide BUN Creatinine Glucose POC Glucose 139 H 155 H 124 H Lactic Acid Calcium Phosphorus Magnesium AST ALT Lactate Dehydrogenase Total Bilirubin Direct Bilirubin CK-MB (CK-2) C-Reactive Protein NT-Pro-B Natriuret Pep Total Protein Albumin Arterial Blood Glucose Urine WBC (Auto) Urine Creatinine 03/05/20 03/05/20 03/06/20 17:45 23:18 12:16 WBC RBC Hgb Hct MCHC RDW MCV MCH Lymph % (Auto) [place] % (Auto) [place] # Eos # Lymph # (Auto) [place] # (Auto) Eos # (Auto) Seg Neutrophils % Seg Neuts % (Manual) Baso # (Auto) Lymphocytes % (Manual) Monocytes % (Manual) Eosinophils % (Manual) Basophils % (Manual) Seg Neutrophils # Seg Neutrophils # Man Lymphocytes # (Manual) Monocytes # (Manual) Eosinophils # (Manual) Nucleated RBC % Basophils # (Manual) PT INR APTT Heparin Anti-Xa Level ABG pH POC ABG pO2 ABG pO2 ABG HCO3 ABG O2 Saturation ABG Base Excess POC ABG pCO2 ABG Hemoglobin ABG Oxyhemoglobin ABG Sodium ABG Chloride ABG Glucose Oxyhemoglobin Sodium Potassium Chloride Carbon Dioxide BUN Creatinine Glucose POC Glucose 171 H 114 H 155 H Lactic Acid Calcium Phosphorus Magnesium AST ALT Lactate Dehydrogenase Total Bilirubin Direct Bilirubin CK-MB (CK-2) C-Reactive Protein NT-Pro-B Natriuret Pep Total Protein Albumin Arterial Blood Glucose Urine WBC (Auto) Urine Creatinine 03/06/20 03/06/20 03/07/20 17:27 23:48 06:02 WBC RBC Hgb Hct MCHC RDW MCV MCH Lymph % (Auto) [place] % (Auto) [place] # Eos # Lymph # (Auto) [place] # (Auto) Eos # (Auto) Seg Neutrophils % Seg Neuts % (Manual) Baso # (Auto) Lymphocytes % (Manual) Monocytes % (Manual) Eosinophils % (Manual) Basophils % (Manual) Seg Neutrophils # Seg Neutrophils # Man Lymphocytes # (Manual) Monocytes # (Manual) Eosinophils # (Manual) Nucleated RBC % Basophils # (Manual) PT INR APTT Heparin Anti-Xa Level ABG pH POC ABG pO2 ABG pO2 ABG HCO3 ABG O2 Saturation ABG Base Excess POC ABG pCO2 ABG Hemoglobin ABG Oxyhemoglobin ABG Sodium ABG Chloride ABG Glucose Oxyhemoglobin Sodium Potassium Chloride Carbon Dioxide BUN Creatinine Glucose POC Glucose 116 H 142 H 161 H Lactic Acid Calcium Phosphorus Magnesium AST ALT Lactate Dehydrogenase Total Bilirubin Direct Bilirubin CK-MB (CK-2) C-Reactive Protein NT-Pro-B Natriuret Pep Total Protein Albumin Arterial Blood Glucose Urine WBC (Auto) Urine Creatinine 03/07/20 03/08/20 03/08/20 11:36 05:18 11:51 WBC RBC Hgb Hct MCHC RDW MCV MCH Lymph % (Auto) [place] % (Auto) [place] # Eos # Lymph # (Auto) [place] # (Auto) Eos # (Auto) Seg Neutrophils % Seg Neuts % (Manual) Baso # (Auto) Lymphocytes % (Manual) Monocytes % (Manual) Eosinophils % (Manual) Basophils % (Manual) Seg Neutrophils # Seg Neutrophils # Man Lymphocytes # (Manual) Monocytes # (Manual) Eosinophils # (Manual) Nucleated RBC % Basophils # (Manual) PT INR APTT Heparin Anti-Xa Level ABG pH POC ABG pO2 ABG pO2 ABG HCO3 ABG O2 Saturation ABG Base Excess POC ABG pCO2 ABG Hemoglobin ABG Oxyhemoglobin ABG Sodium ABG Chloride ABG Glucose Oxyhemoglobin Sodium Potassium Chloride Carbon Dioxide BUN Creatinine Glucose POC Glucose 127 H 142 H 135 H Lactic Acid Calcium Phosphorus Magnesium AST ALT Lactate Dehydrogenase Total Bilirubin Direct Bilirubin CK-MB (CK-2) C-Reactive Protein NT-Pro-B Natriuret Pep Total Protein Albumin Arterial Blood Glucose Urine WBC (Auto) Urine Creatinine 03/08/20 03/08/20 03/09/20 18:14 23:45 05:36 WBC RBC Hgb Hct MCHC RDW MCV MCH Lymph % (Auto) [place] % (Auto) [place] # Eos # Lymph # (Auto) [place] # (Auto) Eos # (Auto) Seg Neutrophils % Seg Neuts % (Manual) Baso # (Auto) Lymphocytes % (Manual) Monocytes % (Manual) Eosinophils % (Manual) Basophils % (Manual) Seg Neutrophils # Seg Neutrophils # Man Lymphocytes # (Manual) Monocytes # (Manual) Eosinophils # (Manual) Nucleated RBC % Basophils # (Manual) PT INR APTT Heparin Anti-Xa Level ABG pH POC ABG pO2 ABG pO2 ABG HCO3 ABG O2 Saturation ABG Base Excess POC ABG pCO2 ABG Hemoglobin ABG Oxyhemoglobin ABG Sodium ABG Chloride ABG Glucose Oxyhemoglobin Sodium Potassium Chloride Carbon Dioxide BUN Creatinine Glucose POC Glucose 125 H 143 H 158 H Lactic Acid Calcium Phosphorus Magnesium AST ALT Lactate Dehydrogenase Total Bilirubin Direct Bilirubin CK-MB (CK-2) C-Reactive Protein NT-Pro-B Natriuret Pep Total Protein Albumin Arterial Blood Glucose Urine WBC (Auto) Urine Creatinine 03/09/20 03/09/20 03/09/20 06:32 06:32 11:34 WBC RBC Hgb 9.8 L Hct 31.6 L MCHC 31 L RDW 23.1 H MCV 80 L MCH 25 L Lymph % (Auto) 35.1 H [place] % (Auto) 11.4 H [place] # Eos # Lymph # (Auto) [place] # (Auto) Eos # (Auto) Seg Neutrophils % Seg Neuts % (Manual) Baso # (Auto) Lymphocytes % (Manual) Monocytes % (Manual) Eosinophils % (Manual) Basophils % (Manual) Seg Neutrophils # Seg Neutrophils # Man Lymphocytes # (Manual) Monocytes # (Manual) Eosinophils # (Manual) Nucleated RBC % Basophils # (Manual) PT INR APTT Heparin Anti-Xa Level ABG pH POC ABG pO2 ABG pO2 ABG HCO3 ABG O2 Saturation ABG Base Excess POC ABG pCO2 ABG Hemoglobin ABG Oxyhemoglobin ABG Sodium ABG Chloride ABG Glucose Oxyhemoglobin Sodium 136 L Potassium Chloride Carbon Dioxide BUN 25 H Creatinine 0.6 L Glucose 170 H POC Glucose 140 H Lactic Acid Calcium Phosphorus Magnesium AST ALT Lactate Dehydrogenase Total Bilirubin Direct Bilirubin CK-MB (CK-2) C-Reactive Protein NT-Pro-B Natriuret Pep Total Protein Albumin Arterial Blood Glucose Urine WBC (Auto) Urine Creatinine 03/09/20 03/09/20 03/10/20 18:10 23:11 05:41 WBC RBC Hgb Hct MCHC RDW MCV MCH Lymph % (Auto) [place] % (Auto) [place] # Eos # Lymph # (Auto) [place] # (Auto) Eos # (Auto) Seg Neutrophils % Seg Neuts % (Manual) Baso # (Auto) Lymphocytes % (Manual) Monocytes % (Manual) Eosinophils % (Manual) Basophils % (Manual) Seg Neutrophils # Seg Neutrophils # Man Lymphocytes # (Manual) Monocytes # (Manual) Eosinophils # (Manual) Nucleated RBC % Basophils # (Manual) PT INR APTT Heparin Anti-Xa Level ABG pH POC ABG pO2 ABG pO2 ABG HCO3 ABG O2 Saturation ABG Base Excess POC ABG pCO2 ABG Hemoglobin ABG Oxyhemoglobin ABG Sodium ABG Chloride ABG Glucose Oxyhemoglobin Sodium Potassium Chloride Carbon Dioxide BUN Creatinine Glucose POC Glucose 153 H 111 H 138 H Lactic Acid Calcium Phosphorus Magnesium AST ALT Lactate Dehydrogenase Total Bilirubin Direct Bilirubin CK-MB (CK-2) C-Reactive Protein NT-Pro-B Natriuret Pep Total Protein Albumin Arterial Blood Glucose Urine WBC (Auto) Urine Creatinine 03/10/20 03/10/20 03/10/20 11:15 17:58 23:36 WBC RBC Hgb Hct MCHC RDW MCV MCH Lymph % (Auto) [place] % (Auto) [place] # Eos # Lymph # (Auto) [place] # (Auto) Eos # (Auto) Seg Neutrophils % Seg Neuts % (Manual) Baso # (Auto) Lymphocytes % (Manual) Monocytes % (Manual) Eosinophils % (Manual) Basophils % (Manual) Seg Neutrophils # Seg Neutrophils # Man Lymphocytes # (Manual) Monocytes # (Manual) Eosinophils # (Manual) Nucleated RBC % Basophils # (Manual) PT INR APTT Heparin Anti-Xa Level ABG pH POC ABG pO2 ABG pO2 ABG HCO3 ABG O2 Saturation ABG Base Excess POC ABG pCO2 ABG Hemoglobin ABG Oxyhemoglobin ABG Sodium ABG Chloride ABG Glucose Oxyhemoglobin Sodium Potassium Chloride Carbon Dioxide BUN Creatinine Glucose POC Glucose 141 H 149 H 148 H Lactic Acid Calcium Phosphorus Magnesium AST ALT Lactate Dehydrogenase Total Bilirubin Direct Bilirubin CK-MB (CK-2) C-Reactive Protein NT-Pro-B Natriuret Pep Total Protein Albumin Arterial Blood Glucose Urine WBC (Auto) Urine Creatinine 03/11/20 03/11/20 03/12/20 05:55 17:43 04:45 WBC RBC Hgb Hct MCHC RDW MCV MCH Lymph % (Auto) [place] % (Auto) [place] # Eos # Lymph # (Auto) [place] # (Auto) Eos # (Auto) Seg Neutrophils % Seg Neuts % (Manual) Baso # (Auto) Lymphocytes % (Manual) Monocytes % (Manual) Eosinophils % (Manual) Basophils % (Manual) Seg Neutrophils # Seg Neutrophils # Man Lymphocytes # (Manual) Monocytes # (Manual) Eosinophils # (Manual) Nucleated RBC % Basophils # (Manual) PT INR APTT Heparin Anti-Xa Level ABG pH 7.454 H POC ABG pO2 69.2 L ABG pO2 ABG HCO3 ABG O2 Saturation ABG Base Excess POC ABG pCO2 ABG Hemoglobin 11.2 L ABG Oxyhemoglobin ABG Sodium 134.7 L ABG Chloride ABG Glucose 151 H Oxyhemoglobin Sodium Potassium Chloride Carbon Dioxide BUN Creatinine Glucose POC Glucose 181 H 107 H Lactic Acid Calcium Phosphorus Magnesium AST ALT Lactate Dehydrogenase Total Bilirubin Direct Bilirubin CK-MB (CK-2) C-Reactive Protein NT-Pro-B Natriuret Pep Total Protein Albumin Arterial Blood Glucose 151 H Urine WBC (Auto) Urine Creatinine 03/12/20 03/12/20 03/12/20 05:36 11:36 17:40 WBC RBC Hgb Hct MCHC RDW MCV MCH Lymph % (Auto) [place] % (Auto) [place] # Eos # Lymph # (Auto) [place] # (Auto) Eos # (Auto) Seg Neutrophils % Seg Neuts % (Manual) Baso # (Auto) Lymphocytes % (Manual) Monocytes % (Manual) Eosinophils % (Manual) Basophils % (Manual) Seg Neutrophils # Seg Neutrophils # Man Lymphocytes # (Manual) Monocytes # (Manual) Eosinophils # (Manual) Nucleated RBC % Basophils # (Manual) PT INR APTT Heparin Anti-Xa Level ABG pH POC ABG pO2 ABG pO2 ABG HCO3 ABG O2 Saturation ABG Base Excess POC ABG pCO2 ABG Hemoglobin ABG Oxyhemoglobin ABG Sodium ABG Chloride ABG Glucose Oxyhemoglobin Sodium Potassium Chloride Carbon Dioxide BUN Creatinine Glucose POC Glucose 137 H 122 H 116 H Lactic Acid Calcium Phosphorus Magnesium AST ALT Lactate Dehydrogenase Total Bilirubin Direct Bilirubin CK-MB (CK-2) C-Reactive Protein NT-Pro-B Natriuret Pep Total Protein Albumin Arterial Blood Glucose Urine WBC (Auto) Urine Creatinine 03/12/20 03/13/20 03/13/20 23:17 05:47 11:35 WBC RBC Hgb Hct MCHC RDW MCV MCH Lymph % (Auto) [place] % (Auto) [place] # Eos # Lymph # (Auto) [place] # (Auto) Eos # (Auto) Seg Neutrophils % Seg Neuts % (Manual) Baso # (Auto) Lymphocytes % (Manual) Monocytes % (Manual) Eosinophils % (Manual) Basophils % (Manual) Seg Neutrophils # Seg Neutrophils # Man Lymphocytes # (Manual) Monocytes # (Manual) Eosinophils # (Manual) Nucleated RBC % Basophils # (Manual) PT INR APTT Heparin Anti-Xa Level ABG pH POC ABG pO2 ABG pO2 ABG HCO3 ABG O2 Saturation ABG Base Excess POC ABG pCO2 ABG Hemoglobin ABG Oxyhemoglobin ABG Sodium ABG Chloride ABG Glucose Oxyhemoglobin Sodium Potassium Chloride Carbon Dioxide BUN Creatinine Glucose POC Glucose 118 H 142 H 146 H Lactic Acid Calcium Phosphorus Magnesium AST ALT Lactate Dehydrogenase Total Bilirubin Direct Bilirubin CK-MB (CK-2) C-Reactive Protein NT-Pro-B Natriuret Pep Total Protein Albumin Arterial Blood Glucose Urine WBC (Auto) Urine Creatinine 03/13/20 03/13/20 03/14/20 17:25 23:27 05:04 WBC RBC Hgb Hct MCHC RDW MCV MCH Lymph % (Auto) [place] % (Auto) [place] # Eos # Lymph # (Auto) [place] # (Auto) Eos # (Auto) Seg Neutrophils % Seg Neuts % (Manual) Baso # (Auto) Lymphocytes % (Manual) Monocytes % (Manual) Eosinophils % (Manual) Basophils % (Manual) Seg Neutrophils # Seg Neutrophils # Man Lymphocytes # (Manual) Monocytes # (Manual) Eosinophils # (Manual) Nucleated RBC % Basophils # (Manual) PT INR APTT Heparin Anti-Xa Level ABG pH POC ABG pO2 ABG pO2 ABG HCO3 ABG O2 Saturation ABG Base Excess POC ABG pCO2 ABG Hemoglobin ABG Oxyhemoglobin ABG Sodium ABG Chloride ABG Glucose Oxyhemoglobin Sodium Potassium Chloride Carbon Dioxide BUN Creatinine Glucose POC Glucose 138 H 160 H 159 H Lactic Acid Calcium Phosphorus Magnesium AST ALT Lactate Dehydrogenase Total Bilirubin Direct Bilirubin CK-MB (CK-2) C-Reactive Protein NT-Pro-B Natriuret Pep Total Protein Albumin Arterial Blood Glucose Urine WBC (Auto) Urine Creatinine 03/14/20 03/14/20 03/15/20 11:19 16:18 00:18 WBC RBC Hgb Hct MCHC RDW MCV MCH Lymph % (Auto) [place] % (Auto) [place] # Eos # Lymph # (Auto) [place] # (Auto) Eos # (Auto) Seg Neutrophils % Seg Neuts % (Manual) Baso # (Auto) Lymphocytes % (Manual) Monocytes % (Manual) Eosinophils % (Manual) Basophils % (Manual) Seg Neutrophils # Seg Neutrophils # Man Lymphocytes # (Manual) Monocytes # (Manual) Eosinophils # (Manual) Nucleated RBC % Basophils # (Manual) PT INR APTT Heparin Anti-Xa Level ABG pH POC ABG pO2 ABG pO2 ABG HCO3 ABG O2 Saturation ABG Base Excess POC ABG pCO2 ABG Hemoglobin ABG Oxyhemoglobin ABG Sodium ABG Chloride ABG Glucose Oxyhemoglobin Sodium Potassium Chloride Carbon Dioxide BUN Creatinine Glucose POC Glucose 130 H 170 H 125 H Lactic Acid Calcium Phosphorus Magnesium AST ALT Lactate Dehydrogenase Total Bilirubin Direct Bilirubin CK-MB (CK-2) C-Reactive Protein NT-Pro-B Natriuret Pep Total Protein Albumin Arterial Blood Glucose Urine WBC (Auto) Urine Creatinine 03/15/20 03/15/20 03/15/20 04:05 04:05 05:36 WBC RBC Hgb 10.0 L Hct 31.6 L MCHC RDW 22.4 H MCV 77 L MCH 24 L Lymph % (Auto) 36.2 H [place] % (Auto) 9.4 H [place] # Eos # Lymph # (Auto) [place] # (Auto) Eos # (Auto) Seg Neutrophils % Seg Neuts % (Manual) Baso # (Auto) Lymphocytes % (Manual) Monocytes % (Manual) Eosinophils % (Manual) Basophils % (Manual) Seg Neutrophils # Seg Neutrophils # Man Lymphocytes # (Manual) Monocytes # (Manual) Eosinophils # (Manual) Nucleated RBC % Basophils # (Manual) PT INR APTT Heparin Anti-Xa Level ABG pH POC ABG pO2 ABG pO2 ABG HCO3 ABG O2 Saturation ABG Base Excess POC ABG pCO2 ABG Hemoglobin ABG Oxyhemoglobin ABG Sodium ABG Chloride ABG Glucose Oxyhemoglobin Sodium Potassium Chloride Carbon Dioxide 32 H BUN Creatinine 0.5 L Glucose 141 H POC Glucose 130 H Lactic Acid Calcium Phosphorus Magnesium AST ALT Lactate Dehydrogenase Total Bilirubin Direct Bilirubin CK-MB (CK-2) C-Reactive Protein NT-Pro-B Natriuret Pep Total Protein Albumin Arterial Blood Glucose Urine WBC (Auto) Urine Creatinine 03/15/20 03/15/20 03/15/20 11:41 17:38 23:16 WBC RBC Hgb Hct MCHC RDW MCV MCH Lymph % (Auto) [place] % (Auto) [place] # Eos # Lymph # (Auto) [place] # (Auto) Eos # (Auto) Seg Neutrophils % Seg Neuts % (Manual) Baso # (Auto) Lymphocytes % (Manual) Monocytes % (Manual) Eosinophils % (Manual) Basophils % (Manual) Seg Neutrophils # Seg Neutrophils # Man Lymphocytes # (Manual) Monocytes # (Manual) Eosinophils # (Manual) Nucleated RBC % Basophils # (Manual) PT INR APTT Heparin Anti-Xa Level ABG pH POC ABG pO2 ABG pO2 ABG HCO3 ABG O2 Saturation ABG Base Excess POC ABG pCO2 ABG Hemoglobin ABG Oxyhemoglobin ABG Sodium ABG Chloride ABG Glucose Oxyhemoglobin Sodium Potassium Chloride Carbon Dioxide BUN Creatinine Glucose POC Glucose 114 H 144 H 116 H Lactic Acid Calcium Phosphorus Magnesium AST ALT Lactate Dehydrogenase Total Bilirubin Direct Bilirubin CK-MB (CK-2) C-Reactive Protein NT-Pro-B Natriuret Pep Total Protein Albumin Arterial Blood Glucose Urine WBC (Auto) Urine Creatinine 03/16/20 03/16/20 03/16/20 05:39 13:16 18:29 WBC RBC Hgb Hct MCHC RDW MCV MCH Lymph % (Auto) [place] % (Auto) [place] # Eos # Lymph # (Auto) [place] # (Auto) Eos # (Auto) Seg Neutrophils % Seg Neuts % (Manual) Baso # (Auto) Lymphocytes % (Manual) Monocytes % (Manual) Eosinophils % (Manual) Basophils % (Manual) Seg Neutrophils # Seg Neutrophils # Man Lymphocytes # (Manual) Monocytes # (Manual) Eosinophils # (Manual) Nucleated RBC % Basophils # (Manual) PT INR APTT Heparin Anti-Xa Level ABG pH POC ABG pO2 ABG pO2 ABG HCO3 ABG O2 Saturation ABG Base Excess POC ABG pCO2 ABG Hemoglobin ABG Oxyhemoglobin ABG Sodium ABG Chloride ABG Glucose Oxyhemoglobin Sodium Potassium Chloride Carbon Dioxide BUN Creatinine Glucose POC Glucose 125 H 153 H 135 H Lactic Acid Calcium Phosphorus Magnesium AST ALT Lactate Dehydrogenase Total Bilirubin Direct Bilirubin CK-MB (CK-2) C-Reactive Protein NT-Pro-B Natriuret Pep Total Protein Albumin Arterial Blood Glucose Urine WBC (Auto) Urine Creatinine 03/16/20 03/17/20 03/17/20 23:32 05:50 11:38 WBC RBC Hgb Hct MCHC RDW MCV MCH Lymph % (Auto) [place] % (Auto) [place] # Eos # Lymph # (Auto) [place] # (Auto) Eos # (Auto) Seg Neutrophils % Seg Neuts % (Manual) Baso # (Auto) Lymphocytes % (Manual) Monocytes % (Manual) Eosinophils % (Manual) Basophils % (Manual) Seg Neutrophils # Seg Neutrophils # Man Lymphocytes # (Manual) Monocytes # (Manual) Eosinophils # (Manual) Nucleated RBC % Basophils # (Manual) PT INR APTT Heparin Anti-Xa Level ABG pH POC ABG pO2 ABG pO2 ABG HCO3 ABG O2 Saturation ABG Base Excess POC ABG pCO2 ABG Hemoglobin ABG Oxyhemoglobin ABG Sodium ABG Chloride ABG Glucose Oxyhemoglobin Sodium Potassium Chloride Carbon Dioxide BUN Creatinine Glucose POC Glucose 137 H 160 H 134 H Lactic Acid Calcium Phosphorus Magnesium AST ALT Lactate Dehydrogenase Total Bilirubin Direct Bilirubin CK-MB (CK-2) C-Reactive Protein NT-Pro-B Natriuret Pep Total Protein Albumin Arterial Blood Glucose Urine WBC (Auto) Urine Creatinine 03/17/20 16:59 WBC RBC Hgb Hct MCHC RDW MCV MCH Lymph % (Auto) [place] % (Auto) [place] # Eos # Lymph # (Auto) [place] # (Auto) Eos # (Auto) Seg Neutrophils % Seg Neuts % (Manual) Baso # (Auto) Lymphocytes % (Manual) Monocytes % (Manual) Eosinophils % (Manual) Basophils % (Manual) Seg Neutrophils # Seg Neutrophils # Man Lymphocytes # (Manual) Monocytes # (Manual) Eosinophils # (Manual) Nucleated RBC % Basophils # (Manual) PT INR APTT Heparin Anti-Xa Level ABG pH POC ABG pO2 ABG pO2 ABG HCO3 ABG O2 Saturation ABG Base Excess POC ABG pCO2 ABG Hemoglobin ABG Oxyhemoglobin ABG Sodium ABG Chloride ABG Glucose Oxyhemoglobin Sodium Potassium Chloride Carbon Dioxide BUN Creatinine Glucose POC Glucose 120 H Lactic Acid Calcium Phosphorus Magnesium AST ALT Lactate Dehydrogenase Total Bilirubin Direct Bilirubin CK-MB (CK-2) C-Reactive Protein NT-Pro-B Natriuret Pep Total Protein Albumin Arterial Blood Glucose Urine WBC (Auto) Urine Creatinine Allied health notes reviewed: RT
[2020-03-18] MEDS: METOPROLOL TARTRATE 5 MG/5 ML INJ IV PRN ×2 (00:14→16:52)
[2020-03-18] MEDS: INSULIN REGULAR, HUMAN 100 UNIT/ML 3ML VIAL SUB-Q SCH ×4 (07:23→17:52)
--- NOTE | 2020-03-18 08:58 | Progress Note ---
Assessment and Plan Assessment and plan : Persistent A. fib. Currently rate controlled on digoxin and metoprolol Amiodarone has been discontinued secondary to elevated liver enzymes Patient currently anticoagulated with Eliquis On as needed IV metoprolol Ischemic Cardiomyopathy, resolving re-echo this presentation reports an LVEF 40-45%. Previous echo 08/2018: LVEF 20-25%. Continue medical therapy Hx of CAD [facility] 12/2018: mild in-stent restenosis. No significant residual disease. Patient on beta-hebert Eliquis and Plavix. No statins for now secondary to elevated liver enzymes can can consider once clinical picture improves Multifocal pneumonia Followed by pulmonology negative COVID-19 test x 3 Respiratory failure Patient currently status post tracheostomy and ventilator History of PE/DVT on Eliquis currently Subjective Date of service: 03/18/20 Principal diagnosis: Ac hypoxemic resp failure; Pneumonia; PUI COVID-19; CHF; COPD; HTN Interval history: Patient currently on tracheostomy. On ventilator. Objective Vital Signs Temp Pulse Resp Resp BP Pulse Ox Pulse Ox 03/18/20 08:05 109 H 89/68 97 97 03/18/20 07:15 128 H 28 H 102/68 96 03/18/20 07:01 123 H 27 H 93/74 100 03/18/20 06:45 120 H 20 93/74 98 03/18/20 06:30 118 H 18 93/74 95 03/18/20 06:21 119 H 104/75 99 03/18/20 06:15 117 H 22 104/75 98 03/18/20 06:00 130 H 21 104/75 97 03/18/20 05:45 106 H 20 98/68 98 03/18/20 05:30 108 H 18 98/68 99 03/18/20 05:15 110 H 18 95/75 97 03/18/20 05:00 126 H 18 95/75 97 03/18/20 04:46 127 H 03/18/20 04:45 134 H 24 104/80 98 03/18/20 04:30 133 H 21 104/80 98 03/18/20 04:15 120 H 20 106/65 100 03/18/20 04:01 125 H 25 H 106/65 95 03/18/20 03:45 126 H 19 87/64 97 03/18/20 03:38 97.5 F L 03/18/20 03:30 115 H 16 87/64 96 03/18/20 03:15 118 H 16 96/61 96 03/18/20 03:05 104 H 13 96/61 97 03/18/20 03:00 106 H 13 96/61 98 03/18/20 02:55 109 H 16 101/79 97 03/18/20 02:51 107 H 18 101/79 96 03/18/20 02:45 105 H 18 101/79 96 03/18/20 02:41 111 H 18 101/79 98 03/18/20 02:35 114 H 21 101/79 99 03/18/20 02:31 120 H 19 98/73 97 03/18/20 02:25 118 H 22 104/78 99 03/18/20 02:21 124 H 16 104/78 100 03/18/20 02:15 121 H 28 H 104/78 96 03/18/20 02:11 122 H 19 104/78 99 03/18/20 02:05 128 H 18 104/78 99 03/18/20 02:00 124 H 22 101/79 98 03/18/20 01:55 130 H 21 104/78 100 03/18/20 01:51 139 H 35 H 104/78 97 03/18/20 01:45 134 H 28 H 104/78 100 03/18/20 01:41 141 H 36 H 104/78 95 03/18/20 01:35 140 H 26 H 104/78 98 03/18/20 01:30 133 H 22 104/78 98 03/18/20 01:25 135 H 31 H 102/66 97 03/18/20 01:21 135 H 25 H 102/66 100 03/18/20 01:15 125 H 22 102/66 99 03/18/20 01:11 136 H 33 H 102/66 99 03/18/20 01:06 99 03/18/20 01:05 141 H 18 102/66 99 03/18/20 01:01 144 H 28 H 102/66 98 03/18/20 00:55 130 H 32 H 99/74 98 03/18/20 00:52 127 H 102/66 99 03/18/20 00:51 143 H 34 H 99/74 97 03/18/20 00:45 129 H 26 H 99/74 98 03/18/20 00:41 137 H 32 H 99/74 97 03/18/20 00:35 132 H 24 44/26 99 03/18/20 00:31 128 H 20 125/70 98 03/18/20 00:28 24 03/18/20 00:25 122 H 19 125/70 100 03/18/20 00:21 144 H 27 H 125/70 97 03/18/20 00:17 136 H 03/18/20 00:15 160 H 29 H 126/105 97 03/18/20 00:14 153 H 125/70 03/18/20 00:11 135 H 22 126/105 97 03/18/20 00:01 137 H 28 H 126/105 97 03/18/20 00:00 29 H 98 03/17/20 23:58 29 H 03/17/20 23:54 97.4 F L 03/17/20 23:45 145 H 32 H 109/87 97 03/17/20 23:30 143 H 27 H 108/76 97 03/17/20 23:28 133 H 27 H 108/76 97 03/17/20 23:13 135 H 23 108/76 96 03/17/20 23:01 128 H 19 93/61 100 03/17/20 22:01 108 H 17 101/67 97 03/17/20 21:13 97 03/17/20 21:01 148 H 20 119/89 98 03/17/20 20:49 157 H 03/17/20 20:45 142 H 121/90 97 03/17/20 20:42 24 03/17/20 20:32 146 H 116/97 03/17/20 20:12 30 H 03/17/20 20:10 30 H 03/17/20 20:01 132 H 31 H 113/90 96 03/17/20 20:00 97.9 F 03/17/20 19:41 20 03/17/20 19:09 132 H 03/17/20 19:00 121 H 28 H 117/83 99 03/17/20 18:20 156 H 117/83 03/17/20 18:01 151 H 33 H 107/79 96 03/17/20 17:01 140 H 23 96/73 94 03/17/20 16:48 130 H 96/73 03/17/20 16:01 159 H 27 H 119/71 12/24/20 16:00 98.3 F 120 H 20 119/71 97 97 03/17/20 15:01 131 H 22 103/65 93 03/17/20 14:00 126 H 21 99/69 03/17/20 13:01 120 H 19 99/69 97 03/17/20 12:01 118 H 21 101/71 96 03/17/20 12:00 97.9 F 03/17/20 11:47 122 H 28 H 99/72 97 03/17/20 11:01 115 H 15 110/81 97 03/17/20 10:05 126 H 110/81 03/17/20 10:00 115 H 23 110/81 97 03/17/20 09:00 110 H 20 116/82 97 - Physical Examination Narrative exam: General: Comfortable no acute distress tracheostomy connected to vent. HEENT: NAD Neck: neck supple Cardiac: S1-S2 heard faint 2/6 systolic murmur Lungs: Normal basilar breath sounds heard Neuro: Grossly Intact Abdomen: Soft Extremities: No edema noted General: Other (s/p trach) HEENT: Positive: PERRL Neck: Positive: neck supple, Other (s/p trach) Neuro: Positive: Weakness Abdomen: Positive: Soft Skin: Positive: Clear Extremities: Absent: edema - Allied health notes Allied health notes reviewed: RT
[2020-03-18] MEDS: GLYCOPYRROLATE 2 MG TAB PO SCH ×3 (09:38→21:00)
[2020-03-18] MEDS: DOCUSATE SODIUM 100 MG/10 ML ORAL LIQD FEEDTUBE SCH ×2 (09:38→21:00)
[2020-03-18] MEDS: METOPROLOL TARTRATE 25 MG TAB FEEDTUBE SCH ×2 (09:39→22:02)
[2020-03-18] MEDS: LANSOPRAZOLE 30 MG SOLUTAB FEEDTUBE SCH (09:39)
[2020-03-18] MEDS: MIDODRINE 5 MG TAB PO SCH ×3 (09:39→16:52)
[2020-03-18] MEDS: APIXABAN 5 MG TAB PO SCH ×2 (09:39→21:00)
[2020-03-18] MEDS: CLOPIDOGREL 75 MG TAB PO SCH (09:39)
[2020-03-18] MEDS: QUEtiapine 100 MG TAB PO SCH ×2 (09:40→21:00)
[2020-03-18] MEDS: ONDANSETRON 4 MG/2 ML INJ IV PRN (11:09)
[2020-03-18] MEDS: LIPASE 10,500/PROTEASE 25,000/AMYLASE 43,750 (UNITS) DR CAP FEEDTUBE PRN (11:09)
[2020-03-18] MEDS: MORPHINE 2 MG/1 ML INJ IV PRN (11:09)
--- NOTE | 2020-03-18 11:25 | Progress Note ---
Assessment and Plan Assessment and plan: --Ischemic cardiomyopathy Cardiology is following, status post cardiac catheterization on 01/22/2020; Co ronary artery disease status post PCI and stent to the LAD Continue current cardiac medications --Acute on chronic hypoxemic respiratory failure; Patient has tracheostomy on vent Continue nebulizers, , trach care Wean off ventilator as tolerated Pulmonary critical following --Acute exacerbation of COPD; Patient is currently on ventilatory support Continue nebulizers --Left lower lobe PE; Continue Eliquis, ventilatory support --Acute right lower extremity DVT; Patient is on Eliquis --Bilateral multifocal pneumonia/community-acquired Completed antibiotics, improved --Severe sepsis/bilateral pneumonia: Completed antibiotics COVID-19 test; 11/24/2019; negative 11/26/2019; negative 12/29/2019: Negative --Paroxysmal atrial fibrillation; Now rate controlled, Stable on amiodarone and Eliquis --Acute on chronic combined systolic and diastolic congestive heart failure Ischemic cardiomyopathy left ventricular ejection fraction 40 to 45% --H/o CAD [[facility] 12/2018 in-stent restenosis] Patient is stable on current cardiac medications --Hypertensive emergency; present on admission Reasonable blood pressures, continue current antihypertensives As needed medications --History of alcohol abuse/alcohol withdrawal; Was on CIWA protocol, now stable --Oropharyngeal dysphagia; status post PEG placement Continue PEG feeds per protocol --History of partial small bowel obstruction; resolved Surgery evaluated. --Obesity; BMI 34.7 Patient needs weight reduction when medically stable --Severe protein calorie malnutrition/hypoalbuminemia Nutrition supplements, dietitian following, PEG feeds --DVT prophylaxis;Eliquis --Full CODE STATUS 01/05; Pt stable. NGT output 650cc over 24 hours, bilious. No f/c, WBC within normal limits. cont NG suction and cont to hold TF 01/06: Abs series - mild improvement in small bowel distension in mid abdomen, normal gas/stool pattern in colon. NGT in duodenum. Continue to hold tube feeding, maintain NG tube with low intermittent suction. Patient's was updated by phone. Continue to provide supportive care and monitor clinically. 01/07: +BMs today and NGT/PEG output appears more gastric today. Plan to clamp NGT, if tolerates start TF from tomorrow. cont supportive care. 01/08; Gastric output decreased over last 24 hours. NGT has been clamped x 24 hours. plan to dc NGT and to start TTF via PEG - vital HF @10cc/hr 01/09: clinically stable, tolerating TF. monitor BMP, wean off from vent as tolerated clinically stable, on TF. wean off vent as tolerated 01/11: wean off from vent, cont to monitor, on TF 01/12: wean off from vent, cont to monitor, on TF. need placement - unfunded 01/13; remains on ventilatory support, unable to wean, DC planning possible LTAC, unfunded 01/14; patient of ventilatory support, T-piece tracheostomy on oxygen, LTAC placement per case management 01/16; tracheostomy, patient on full ventilatory support, wean off vent support as tolerated, pending LTAC placement, social financial issues 01/17; awaiting LTAC placement, insurance and financial issues 01/18; patient tracheostomy remains on ventilatory support 01/19; wean off ventilator as tolerated 01/20; remains on ventilatory support, patient complains of intermittent chest pain, cardiology recommend left heart catheterization tomorrow 01/22/2020. Patient for left heart catheterization per cardiology. Patient remains on AC mode ventilation rate 12, tidal volume 450, FiO2 30% and PEEP of 6. Continue tracheostomy care, airway management and secretion control. 01/23/2020. Cardiac catheterization completed yesterday revealed widely patent previous LAD stent with mild nonobstructive atherosclerosis of the right mid coronary artery and rest of the coronary system was without significant atherosclerosis. The left ventricle ejection fraction was mildly impaired at 40 to 45%. There was some hypokinesis of the basal inferior wall suggestive of previous or recent infarct. Continue GDMT for coronary artery disease including beta blockers, topical nitrates, statin and Plavix. Continue Eliquis for paroxysmal atrial fibrillation and PE. Continue diuresis with Lasix and follow electrolytes closely. Continue Robinul and scopolamine for secretion control and daily SBT per pulmonary. Also, continue bronchodilators and routine trach care/airway management. T-piece trials per pulmonary as tolerated. 01/24/2020. Recent cardiac catheterization has documented widely patent left anterior descending artery stent with minimal nonobstructive diffuse coronary artery disease in the rest of the coronary arteries. Evidence of ischemic cardiomyopathy with inferior wall hypokinesis. Continue with guideline directed medical therapy. Continue Robinul and scopolamine for secretion control and daily SBT per pulmonary. Continue bronchodilators and routine trach care/airway management. T-piece trials per pulmonary as tolerated. 01/25/2020. Continue with guideline directed medical therapy for systolic heart failure. Cardiac catheterization revealed evidence of ischemic cardiomyopathy with inferior wall hypokinesis (EF 40-45%). Patient currently on T-piece with oxygen 10 L/min FiO2 40%. Continue Robinul and scopolamine for secretion control. Continue bronchodilators and routine trach care/airway management. 02/03: Mental status more improved, agree with Reglan will change to IV scheduled for two days, no new vomiting. Pseudomonas A in Sputum. 02/04: Clinical improving, amiodarone discontinued due to LFTs, continue Metoprolol.d/w GI, started on Golytely to clear impaction. Started on dialy Miralax. 02/05: Continue supportive care. Noted bowel movement, continue bowel regimen 02/06: Cardiology input noted beta-hebert increased for better suppression of atrial fibrillation. Continue to monitor, no other evidence of nausea vomiting noted. Discussed with respiratory therapist will be continued on weaning protocol with pressure support today. 02/07: Patient successfully weaned off the ventilator, No new complaints, c ontinue monitoring, BM noted, Discussed with pulmonary, 02/08; tracheostomy on T-piece, patient is more alert and awake today 02/09; clinically no change, tracheostomy on vent 02/10; tracheostomy on vent, full CODE STATUS, poor prognosis, 02/11; clinically no change, remains on ventilatory support, full CODE STATUS, discussed with spouse Ms. Paulette Araiza extensively today 02/12. Patient resting comfortably no change on vent with tracheostomy. Still unable to wean. Some increased crackles today. 02/13: Still unable to wean from the vent. Overall prognosis remains extremely poor. 02/14; remains critically ill, tracheostomy on vent, unable to wean, poor prognosis, full CODE STATUS 02/15; patient is more alert and awake today, chronic tracheostomy on T-piece, continue current management DC planning per case management. Disposition very difficult due to lack of resources and insurance 02/17/2020. Patient remains on mechanical ventilation and tolerating PSV trials. Patient currently with PSV 10/6 at FiO2 of 30%. 02/18/2020. Patient currently on PSV 10/6 with FiO2 of 40%. 40% T-piece trial was attempted but patient unable to tolerate due to saturations dropping into the 80s and heart rate in the 140s. Therefore, patient placed back on PSV. Continue anticoagulation with Eliquis. Continue secretion control with Robinul and scopolamine. Continue rate control with metoprolol and digoxin. 02/19/2020. Patient currently on PSV 10/6 with FiO2 of 30%. T-piece trial attempted yesterday but patient did not tolerate. Continue T-piece trials as tolerated. Continue anticoagulation with Eliquis. Continue secretion control with Robinul and scopolamine. Continue rate control with metoprolol and digoxin. Continue to follow with case management with regards to discharge pl anning. 02/20/2020. Patient continues to tolerate PSV 10/6. Continue rate control with metoprolol and digoxin. Amiodarone discontinued due to elevated liver transaminases. Eliquis for anticoagulation acute PE/DVT. 02/21/2020. Patient continues to tolerate PSV 10/6 at FiO2 of 30%. Continue ra te control with metoprolol and digoxin. Amiodarone discontinued due to elevated liver transaminases. Eliquis for anticoagulation acute PE/DVT. 02/22/2020. Patient continues to tolerate PSV 10/6 at FiO2 of 30%. Continue rate control with metoprolol and digoxin. Amiodarone discontinued due to el evated liver transaminases. Eliquis for anticoagulation acute PE/DVT. 02/22. Awake and alert on vent. Vitals stable. 02/23. Awake and alert on vent. Requests for ice. Vitals stable 02/24. Trach to vent. Continue rate control with metoprolol and digoxin. Amiodarone discontinued due to elevated liver transaminases. Eliquis for anticoagulation of acute PE/DVT. Transferred to [facility] 02/25. Seen in [facility]. Requests for ice. RN to provide a cube of ice. Vitals stable. 02/26. No change in medical condition. Slightly tachy this AM. Will monitor. 02/27. Cardiology started him on a beta hebert. Still on vent 02/28. Discharge planning as per network design architect. Still on vent. Tachycardia noted. 03/01/2020; patient is tachycardic, still on the vent. Discharge management as per network design architect. 03/02/2020; patient is on a vent and trach. Discharge is per network design architect. 03/03/2012; patient is on vent and trach patient is alert and oriented. 03/04/2020; patient is on vent and trach, patient is alert. 03/05/2020; patient is on vent and trach, patient is alert. 03/06/2020 tracheostomy on vent , patient is alert, possible LTAC placement 03/08/2020 remains on ventilatory support; wean off the vent, pending LTAC placement 03/09/2020; clinically no change, tracheostomy on ventilatory support, unable to wean, awaiting LTAC placement, social issues 03/10/2020; clinically no change; patient alert and awake; 03/11/2020; patient is more alert and awake asking for some water, remains on ventilatory support, awaiting LTAC placement 03/12/2020; clinically no change, tracheostomy on ventilatory support, unable to wean, awaiting LTAC placement 03/13 patient on vent via tracheostomy, alert and oriented and offers no complaints except some neck pain. Denies any chest pain or shortness of breath or palpitations. All interdisciplinary notes reviewed 03/14/2020. Patient currently on AC mode ventilation rate of 12 tidal volume 450 FiO2 30% and a PEEP of 6. Patient is s/p tracheostomy on ventilatory support awaiting LTAC placement. 03/15/2020. Patient remains on AC mode ventilation rate 12, tidal volume 450, FiO2 30% and PEEP of 6. Patient failed CPAP trials. Unfortunately, Patient is uninsured and his only d/c option is to return home with family. 03/16/20. Patient remains on AC mode ventilation rate 12, tidal volume 450, FiO2 30% and PEEP of 6. Cont. PSV as figueroa. Patient is uninsured and his only d/c option is to return home with family. 03/17/2020. Patient remains on AC mode ventilation rate 12, tidal volume 450, FiO2 30% and PEEP of 6. Cont. PSV as figueroa. Patient is uninsured and his only d/c option is to return home with family. 03/18/2020. Patient remains on same vent settings the past few days. Continue pressure support ventilation trials as tolerated. Supportive care The high probability of a clinically significant, sudden or life threatening deterioration of the [Respiratory, cardiovascular & neurological] system(s) required my full and direct attention, intervention and personal management. The aggregate critical care time was [32] minutes without overlap. Time includes spent on [x] Data Review and interpretation [x] Patient assessment and monitoring of vital signs [x] Documentation [x] Medication orders and management History Interval history: Patient is a 64-year-old male with known history of hypertension, COPD, history of coronary artery disease, CHF with ejection fraction of 20 to 25% 2019 was admitted through emergency room with worsening shortness of breath Patient was found to be hypoxic and in respiratory distress. Patient was placed on CPAP in route to the hospital. Patient remained hypoxic on CPAP BiPAP ,subsequently was intubated. Patient also had bilateral multifocal pneumonia managed appropriately with antibiotics sputum cultures positive for Pseudomonas, ID treated with cefepime and Vanco. His hospital course became complicated with acute PE, DVT, paroxysmal atrial fib - placed on chronic anticoagulation. Patient was difficult to wean off, status post trach and PEG, remains on mechanical ventilation with trach tube. He then developed partial small bowel obstruction evaluated by general surgeon symptom improved with medical Mx, patient was briefly weaned off ventilatory support however, was in respiratory failure requiring full ventilatory support. Cardiac catheterization on 01/22/2020. Patient remains on mechanical ventilatory support. Patients still with elevated heart rate of Afib with RVR continue amiodarone and metoprolol. LVEF 40 to 45% on Eliquis FOR THE Acute PE/DVT. Partial SBO vs ileus- KUB is negative. Brief history; Patient is a 64-year-old male with known history of hypertension, COPD, history of coronary artery disease, CHF with ejection fraction of 20 to 25% 2019 was admitted through emergency room with worsening shortness of breath Patient was found to be hypoxic and in respiratory distress. Patient was placed on CPAP in route to the hospital. Patient remained hypoxic on CPAP BiPAP ,subsequently was intubated, vent dependent. Unable to wean subsequently had tracheostomy and PEG placement, patient also has acute PE DVT and paroxysmal atrial fibrillation on chronic anticoagulation. Patient is vent dependent, social issues, awaiting LTAC placement Hospitalist Physical - Constitutional Vitals: Temp Pulse Resp BP Pulse Ox 97.4 F L 107 H 25 H 111/78 96 03/18/20 08:00 03/18/20 10:15 03/18/20 10:15 03/18/20 10:15 03/18/20 10:15 General appearance: Present: no acute distress, well-nourished, other (Tracheostomy on vent) - EENT Eyes: Present: PERRL, EOM intact ENT: hearing intact, clear oral mucosa, dentition normal - Neck Neck: Present: supple, normal ROM - Respiratory Respiratory effort: normal Respiratory: bilateral: CTA - Cardiovascular Rhythm: regular Heart Sounds: Present: S1 & S2. Absent: gallop, rub - Extremities Extremities: no ischemia, No edema, Full ROM - Abdominal General gastrointestinal: soft, non-tender, non-distended, normal bowel sounds - Integumentary Integumentary: Present: clear, warm, dry - Neurologic Neurologic: CNII-XII intact, moves all extremities HEART Score - HEART Score Troponin: Troponin T < 0.010 ng/mL (0.00-0.029) 01/19/20 01:35 Results - Labs CBC & Chem 7: 03/15/20 04:05 03/15/20 04:05 Labs: Laboratory Last Values WBC 6.0 K/mm3 (4.5-11.0) 03/15/20 04:05 RBC 4.09 M/mm3 (3.65-5.03) 03/15/20 04:05 Hgb 10.0 gm/dl (11.8-15.2) L 03/15/20 04:05 Hct 31.6 % (35.5-45.6) L 03/15/20 04:05 MCV 77 fl (84-94) L 03/15/20 04:05 MCH 24 pg (28-32) L 03/15/20 04:05 MCHC 32 % (32-34) 03/15/20 04:05 RDW 22.4 % (13.2-15.2) H 03/15/20 04:05 Plt Count 205 K/mm3 (140-440) 03/15/20 04:05 Lymph % (Auto) 36.2 % (13.4-35.0) H 03/15/20 04:05 [place] % (Auto) 9.4 % (0.0-7.3) H 03/15/20 04:05 Eos % (Auto) 2.8 % (0.0-4.3) 03/15/20 04:05 Baso % (Auto) 0.6 % (0.0-1.8) 03/15/20 04:05 Lymph # (Auto) 2.2 K/mm3 (1.2-5.4) 03/15/20 04:05 [place] # (Auto) 0.6 K/mm3 (0.0-0.8) 03/15/20 04:05 Eos # (Auto) 0.2 K/mm3 (0.0-0.4) 03/15/20 04:05 Baso # (Auto) 0.0 K/mm3 (0.0-0.1) 03/15/20 04:05 Add Manual Diff Complete 02/15/20 06:59 Total Counted 100 02/15/20 06:59 Seg Neutrophils % 51.0 % (40.0-70.0) 03/15/20 04:05 Seg Neuts % (Manual) 58.0 % (40.0-70.0) 02/15/20 06:59 Band Neutrophils % 0 % 02/15/20 06:59 Lymphocytes % (Manual) 34.0 % (13.4-35.0) 02/15/20 06:59 Reactive Lymphs % (Man) 1.0 % 02/15/20 06:59 Monocytes % (Manual) 4.0 % (0.0-7.3) 02/15/20 06:59 Eosinophils % (Manual) 0 % (0.0-4.3) 02/15/20 06:59 Basophils % (Manual) 2.0 % (0.0-1.8) H 02/15/20 06:59 Metamyelocytes % 1.0 % 02/15/20 06:59 Myelocytes % 0 % 02/15/20 06:59 Promyelocytes % 0 % 02/15/20 06:59 Blast Cells % 0 % 02/15/20 06:59 Nucleated RBC % 1.0 % (0.0-0.9) H 02/15/20 06:59 Seg Neutrophils # 3.0 K/mm3 (1.8-7.7) 03/15/20 04:05 Seg Neutrophils # Man 5.9 K/mm3 (1.8-7.7) 02/15/20 06:59 Band Neutrophils # 0.0 K/mm3 02/15/20 06:59 Lymphocytes # (Manual) 3.5 K/mm3 (1.2-5.4) 02/15/20 06:59 Abs React Lymphs (Man) 0.1 K/mm3 02/15/20 06:59 Monocytes # (Manual) 0.4 K/mm3 (0.0-0.8) 02/15/20 06:59 Eosinophils # (Manual) 0.0 K/mm3 (0.0-0.4) 02/15/20 06:59 Basophils # (Manual) 0.2 K/mm3 (0.0-0.1) H 02/15/20 06:59 Metamyelocytes # 0.1 K/mm3 02/15/20 06:59 Myelocytes # 0.0 K/mm3 02/15/20 06:59 Promyelocytes # 0.0 K/mm3 02/15/20 06:59 Blast Cells # 0.0 K/mm3 02/15/20 06:59 WBC Morphology Not Reportable 02/15/20 06:59 Hypersegmented Neuts Not Reportable 02/15/20 06:59 Hyposegmented Neuts Not Reportable 02/15/20 06:59 Hypogranular Neuts Not Reportable 02/15/20 06:59 Smudge Cells Not Reportable 02/15/20 06:59 Toxic Granulation Not Reportable 02/15/20 06:59 Toxic Vacuolation Not Reportable 02/15/20 06:59 Dohle Bodies Not Reportable 02/15/20 06:59 Pelger-Huet Anomaly Not Reportable 02/15/20 06:59 Hector Rods Not Reportable 02/15/20 06:59 Platelet Estimate Consistent w auto 02/15/20 06:59 Clumped Platelets Not Reportable 02/15/20 06:59 Plt Clumps, EDTA Not Reportable 02/15/20 06:59 Large Platelets Not Reportable 02/15/20 06:59 Giant Platelets Not Reportable 02/15/20 06:59 Platelet Satelliting Not Reportable 02/15/20 06:59 Plt Morphology Comment Giant platelets 02/15/20 06:59 RBC Morphology Not Reportable 02/15/20 06:59 Dimorphic RBCs Not Reportable 02/15/20 06:59 Polychromasia Not Reportable 02/15/20 06:59 Hypochromasia 1+ 02/15/20 06:59 Poikilocytosis Few 02/15/20 06:59 Anisocytosis 1+ 02/15/20 06:59 Microcytosis Not Reportable 02/15/20 06:59 Macrocytosis Not Reportable 02/15/20 06:59 Spherocytes Not Reportable 02/15/20 06:59 Pappenheimer Bodies Not Reportable 02/15/20 06:59 Sickle Cells Not Reportable 02/15/20 06:59 Target Cells 1+ 02/15/20 06:59 Tear Drop Cells Few 02/15/20 06:59 Ovalocytes Not Reportable 02/15/20 06:59 Helmet Cells Not Reportable 02/15/20 06:59 Gottlieb-Huson Bodies Not Reportable 02/15/20 06:59 [place] Rings Not Reportable 02/15/20 06:59 Oc Cells Not Reportable 02/15/20 06:59 Bite Cells Not Reportable 02/15/20 06:59 Crenated Cell Not Reportable 02/15/20 06:59 Elliptocytes Few 02/15/20 06:59 Acanthocytes (Spur) Not Reportable 02/15/20 06:59 Rouleaux Not Reportable 02/15/20 06:59 Hemoglobin C Crystals Not Reportable 02/15/20 06:59 Schistocytes Not Reportable 02/15/20 06:59 Malaria parasites Not Reportable 02/15/20 06:59 Clifford Bodies Not Reportable 02/15/20 06:59 Hem Pathologist Commnt No 02/15/20 06:59 PT 27.0 Sec. (12.2-14.9) H 02/07/20 15:03 INR 2.46 (0.87-1.13) H 02/07/20 15:03 APTT 31.5 Sec. (24.2-36.6) 01/22/20 09:58 Heparin Anti-Xa Level 1.34 U.I./ml (0.3-0.7) H 01/22/20 04:45 ABG pH 7.454 (7.320-7.450) H 03/12/20 04:45 POC ABG pCO2 45.6 mmHg (32.0-48.0) 03/12/20 04:45 ABG pCO2 47.8 mm Hg 02/20/20 06:45 POC ABG pO2 69.2 mmHg (83-108) L 03/12/20 04:45 ABG pO2 88.7 mm Hg (80.0-90.0) 02/20/20 06:45 POC ABG HCO3 31.3 03/12/20 04:45 ABG HCO3 33.3 mmol/L (20.0-26.0) H 02/20/20 06:45 ABG O2 Saturation 97.2 % (95.0-99.0) 02/20/20 06:45 ABG O2 Content 13.3 (0.0-44) 02/20/20 06:45 POC ABG Base Excess 6.5 03/12/20 04:45 ABG Base Excess 8.4 mmol/L (-2.0-3.0) H 02/20/20 06:45 ABG Hemoglobin 11.2 (12.0-17.5) L 03/12/20 04:45 ABG Oxyhemoglobin 84 (94-98) L 12/22/19 03:22 ABG Carboxyhemoglobin 2.9 % (0.0-5.0) 02/20/20 06:45 ABG Methemoglobin 0.4 % (0.0-1.5) 02/20/20 06:45 ABG Sodium 134.7 mmol/L (136.0-145.0) L 03/12/20 04:45 ABG Potassium 3.9 mmol/L (3.40-4.50) 03/12/20 04:45 ABG Chloride 98.0 mmol/L (98-107) 03/12/20 04:45 ABG Glucose 151 mg/dL (65-95) H 03/12/20 04:45 Oxyhemoglobin 94.1 % (95.0-99.0) L 02/20/20 06:45 Carboxyhemoglobin 0.7 (0.5-1.5) 12/22/19 03:22 FiO2 30 03/12/20 04:45 Sodium 137 mmol/L (137-145) 03/15/20 04:05 Potassium 4.3 mmol/L (3.6-5.0) 03/15/20 04:05 Chloride 98.7 mmol/L (98-107) 03/15/20 04:05 Carbon Dioxide 32 mmol/L (22-30) H 03/15/20 04:05 Anion Gap 11 mmol/L 03/15/20 04:05 BUN 17 mg/dL (9-20) 03/15/20 04:05 Creatinine 0.5 mg/dL (0.8-1.3) L 03/15/20 04:05 Estimated GFR > 60 ml/min 03/15/20 04:05 BUN/Creatinine Ratio 34 % 03/15/20 04:05 Glucose 141 mg/dL (75-100) H 03/15/20 04:05 POC Glucose 142 mg/dL (70-105) H 03/18/20 11:18 Lactic Acid 1.60 mmol/L (0.7-2.0) 02/03/20 12:49 Calcium 9.0 mg/dL (8.4-10.2) 03/15/20 04:05 Ferritin 84.4 ng/mL (30.0-300.0) 11/24/19 04:53 Phosphorus 4.10 mg/dL (2.5-4.5) 01/31/20 19:24 Magnesium 2.40 mg/dL (1.7-2.3) H 02/10/20 07:40 Total Bilirubin 1.30 mg/dL (0.1-1.2) H 02/08/20 19:00 Direct Bilirubin 0.9 mg/dL (0-0.2) H 02/08/20 19:00 Indirect Bilirubin 0.4 mg/dL 02/08/20 19:00 Total Creatine Kinase 141 units/L (55-170) 11/24/19 02:53 CK-MB (CK-2) 4.3 ng/mL (0.0-4.0) H 11/24/19 02:53 AST 309 units/L (5-40) H 02/08/20 19:00 ALT 650 units/L (7-56) H 02/08/20 19:00 CK-MB (CK-2) Rel Index 3.0 (0-4) 11/24/19 02:53 Alkaline Phosphatase 109 units/L (35-129) 02/08/20 19:00 C-Reactive Protein 8.50 mg/dL (0.00-1.30) H 12/01/19 12:16 Ammonia 35.0 umol/L (25-60) 02/03/20 12:49 Lactate Dehydrogenase 228 units/L (91-180) H 12/19/19 04:45 Troponin T < 0.010 ng/mL (0.00-0.029) 01/19/20 01:35 NT-Pro-B Natriuret Pep 3866 pg/mL (0-900) H 01/01/20 10:40 Total Protein 6.2 g/dL (6.3-8.2) L 02/08/20 19:00 Albumin 2.7 g/dL (3.9-5) L 02/08/20 19:00 Albumin/Globulin Ratio 0.8 % 02/08/20 19:00 Procalcitonin 0.44 ng/mL (<0.15) 02/03/20 12:49 Arterial Blood Glucose 151 mg/dL (65-95) H 03/12/20 04:45 Arterial Blood Ionized Calcium 4.8 mg/dL (4.6-5.3) 03/12/20 04:45 Urine Color [place] (Yellow) 02/26/20 07:50 Urine Turbidity Clear (Clear) 02/26/20 07:50 Urine pH 5.0 (5.0-7.0) 02/26/20 07:50 Ur Specific [place] 1.025 (1.003-1.030) 02/26/20 07:50 Urine Protein 30 mg/dl mg/dL (Negative) 02/26/20 07:50 Urine Glucose (UA) Neg mg/dL (Negative) 02/26/20 07:50 Urine Ketones Neg mg/dL (Negative) 02/26/20 07:50 Urine Blood Sm (Negative) 02/26/20 07:50 Urine Nitrite Neg (Negative) 02/26/20 07:50 Urine Bilirubin Neg (Negative) 02/26/20 07:50 Urine Urobilinogen 4.0 mg/dL (<2.0) 02/26/20 07:50 Ur Leukocyte Esterase Lg (Negative) 02/26/20 07:50 Urine WBC (Auto) > 182.0 /HPF (0.0-6.0) H 02/26/20 07:50 Urine RBC (Auto) 84.0 /HPF (0.0-6.0) 02/26/20 07:50 U Epithel Cells (Auto) 2.0 /HPF (0-13.0) 12/31/19 18:04 Urine Bacteria (Auto) 4+ /HPF (Negative) 02/26/20 07:50 Urine WBC Clumps 2+ /HPF 02/26/20 07:50 Urine Mucus 1+ /HPF 02/26/20 07:50 Urine Creatinine 57.4 mg/dL (0.1-20.0) H 01/31/20 Unknown Urine Sodium 59 mmol/L 01/31/20 Unknown Vancomycin Trough 14.2 ug/mL (5.0-20.0) 12/13/19 15:01 Coronavirus (PCR) Negative (Negative) 12/29/19 10:07 Hepatitis A IgM Ab Non-reactive (NonReactive) 02/05/20 06:37 Hep Bs Antigen Non-reactive (Negative) 02/05/20 06:37 Hep B Core IgM Ab Non-reactive (NonReactive) 02/05/20 06:37 Hepatitis C Antibody Non-reactive (NonReactive) 02/05/20 06:37 Blood Type O POSITIVE 01/21/20 13:00 Antibody Screen Negative 01/21/20 13:00 - Diagnostic Impressions Diagnostic Impressions: Echocardiogram 11/29/19 07:37 Transthoracic Echocardiogram Indication: CHF BP: 116/72 HR: 33 Conclusions *The study is technically limited due to poor acoustic windows. *Global left ventricular systolic function is normal. *The estimated ejection fraction is 50-55%. *Mild concentric left ventricular hypertrophy is observed. *There is trace of mitral regurgitation. *There is mild tricuspid regurgitation. Findings Procedure Info: The study quality is poor. The study is technically limited due to poor acoustic windows. The study is technically limited due to patient body habitus. Left Ventricle: The left ventricular chamber size is normal. Mild concentric left ventricular hypertrophy is observed. Global left ventricular systolic function is normal. The estimated ejection fraction is 50-55%. Left Atrium: The left atrial chamber size is normal. Right Ventricle: The right ventricular cavity size is normal. Right Atrium: The right atrial cavity size is normal. Aortic Valve: The aortic valve leaflets are moderately thickened. There is trace of aortic regurgitation. There is no evidence of aortic stenosis. Mitral Valve: The mitral valve leaflets are mildly thickened. There is trace of mitral regurgitation. There is no evidence of mitral stenosis. Tricuspid Valve: There is mild tricuspid regurgitation. No pulmonary hypertension is noted. Pulmonic Valve: There is trace pulmonic regurgitation. Pericardium: There is no pericardial effusion. Aorta: There is no dilatation of the aortic root. Venous: The inferior vena cava appears normal in size. Contrast: Definity was used to optimize study. Intravenous contrast was used to enhance endocardial border definition. Measurements Chambers 2D Name Value Normal Range Ao root diameter (2D) 3.4 cm (2 - 3.7) Aortic Valve Name Value Normal Range AV Vmax 0.98 m/sec - AV VTI 16.76 cm - AV peak gradient 3.83 mmHg - AV mean gradient 2.57 mmHg - LVOT diameter 3.11 cm - LVOT Vmax 0.68 m/sec - LVOT VTI 11.52 cm - LVOT peak gradient 1.84 mmHg - LVOT mean gradient 1.27 mmHg - SV LVOT 87.31 ml - MALOU (continuity Vmax) 5.24 cm2 - MALOU (continuity VTI) 5.21 cm2 - Tricuspid Valve Name Value Normal Range IVC diameter 2.24 cm (1.2 - 2.3) Hoffman/IV: Voiding Method Indwelling Catheter IV Catheter Type [Left INT / Saline Lock Antecubital] IV Catheter Type [Right INT / Saline Lock Forearm] IV Catheter Type [Right Hand] Peripheral IV IV Catheter Type [Right Upper INT / Saline Lock arm] IV Catheter Type [Left Upper Mid-line arm] IV Catheter Type [Left Forearm Peripheral IV ] IV Catheter Type [Left Hand] Peripheral IV IV Catheter Type [Left Wrist] INT / Saline Lock IV Catheter Type [Right Peripheral IV Antecubital] Active Medications - Current Medications Current Medications: Generic Name Dose Route Start Last Admin Trade Name Freq PRN Reason Stop Dose Admin Acetaminophen 650 mg 03/12/20 04:29 03/17/20 19:41 Acetaminophen 325 Mg/10.15 Ml Oral Liqd Unit Dose FEEDTUBE 650 mg Q6H PRN Administration Pain, Mild (1-3) Lipase/Protease/Amylase 1 each 01/09/20 12:01 03/18/20 11:09 Lipase 10,500/Protease 25,000/Amylase 43,750 (Units) Dr Leonidas FEEDTUBE 1 each PRN PRN Administration For Clogged Feeding Tube Apixaban 5 mg 01/22/20 22:00 03/18/20 09:39 Eliquis PO 5 mg Q12HR CAR Administration Protocol Atorvastatin Calcium 40 mg 01/20/20 22:00 03/17/20 21:11 Lipitor PO Not Given QHS CAR Clopidogrel Bisulfate 75 mg 01/21/20 06:00 03/18/20 09:39 Plavix PO 75 mg QDAY CAR Administration Dextrose 50 ml 01/31/20 18:51 02/05/20 00:56 D50w (25gm) Syringe IV 50 ml Q30MIN PRN Administration Hypoglycemia Protocol Digoxin 0.125 mg 02/25/20 17:00 03/17/20 16:48 Lanoxin PO 0.125 mg DAILY@1700 CAR Administration Docusate Sodium 100 mg 02/22/20 10:00 03/18/20 09:38 Colace FEEDTUBE 100 mg BID CAR Administration Glycopyrrolate 2 mg 02/24/20 21:00 03/18/20 09:38 Glycopyrrolate PO 2 mg TID CAR Administration Haloperidol Lactate 5 mg 02/10/20 14:20 03/17/20 19:42 Haloperidol Lactate 5 Mg/1 Ml Inj IV 5 mg Q6H PRN Administration Agitation Hydrophilic Ointment 1 applic 01/17/20 15:26 02/24/20 23:20 Lip Therapy Vaseline TP 1 applic DIRECT PRN Administration Dry Lips Insulin Human Regular 0 unit 02/01/20 18:00 03/18/20 11:20 Humulin R SUB-Q Not Given Q6H [facility] Protocol Lansoprazole 30 mg 02/05/20 16:00 03/18/20 09:39 Lansoprazole 30 Mg Solutab FEEDTUBE 30 mg QDAY CAR Administration Metoprolol Tartrate 5 mg 01/11/20 08:00 03/18/20 00:14 Metoprolol Tartrate 5 Mg/5 Ml Inj IV 5 mg Q6H PRN Administration SEE INSTRUCTIONS Metoprolol Tartrate 12.5 mg 02/28/20 12:00 03/18/20 09:39 Metoprolol FEEDTUBE 12.5 mg BID CAR Administration Midodrine 15 mg 02/04/20 16:00 03/18/20 11:09 Midodrine 5 Mg Tab PO 15 mg TID@0800,1200,1600 CAR Administration Morphine Sulfate 2 mg 01/06/20 15:41 03/18/20 11:09 Morphine 2 Mg/1 Ml Inj IV 2 mg Q4H PRN Administration Pain, Moderate (4-6) Multi-Ingred Cream/Lotion/Oil/Oint 1 applic 02/01/20 15:52 Artificial Tears Ophth Oint OU Q4HR PRN Dry Eye(s) Nitroglycerin 0.4 mg 01/19/20 21:09 01/20/20 03:03 Nitroglycerin 0.4 Mg Tab Subl SL 0.4 mg .Q5MIN PRN Administration Chest Pain Ondansetron HCl 4 mg 01/05/20 14:37 03/18/20 11:09 Ondansetron 4 Mg/2 Ml Inj IV 4 mg Q8H PRN Administration Nausea And Vomiting Polyethylene Glycol 17 gm 12/04/19 22:00 03/17/20 21:08 Miralax 3350 PO Not Given QHS [facility] Quetiapine Fumarate 300 mg 01/13/20 22:00 03/18/20 09:40 Quetiapine 100 Mg Tab PO 300 mg BID CAR Administration Simple Syrup 15 ml 01/09/20 12:01 Simple Syrup 15 Ml FEEDTUBE PRN PRN Hypoglycemia Simple Syrup 30 ml 01/09/20 12:01 Simple Syrup 15 Ml FEEDTUBE PRN PRN Hypoglycemia Sodium Bicarbonate 325 mg 01/09/20 12:01 03/07/20 12:56 Sodium Bicarbonate 325 Mg Tab FEEDTUBE 325 mg PRN PRN Administration For Clogged Feeding Tube Sodium Chloride 10 ml 11/24/19 10:00 03/18/20 09:40 Sodium Chloride Flush Syringe 10 Ml IV 10 ml BID CAR Administration Tamsulosin HCl 0.8 mg 12/20/19 22:00 03/17/20 21:08 Tamsulosin 0.4 Mg Cap PO Not Given QHS [facility] Nutrition/Malnutrition Assess - Dietary Evaluation Nutrition/Malnutrition Findings: Nutrition Notes Start: 11/24/19 12:22 Freq: Status: Active Protocol: Document 03/17/20 10:48 LM (Rec: 03/17/20 11:08 LM [email or web address]) Nutrition Notes Initial or Follow up Reassessment Current Diagnosis Coronary Artery Disease,Heart Failure,Respiratory Failure, Stroke,Hyperlipidemia Other Pertinent Diagnosis pneumonia Current Diet Osmolite 1.5 at 65ml/hr Labs/Tests Reviewed Pertinent Medications Humulin Height 6 ft 2 in Weight 123.2 kg [place] Body Weight (kg) 86.36 BMI 34.8 Weight Status Obese Subjective/Other Information Observed TF running at 55ml/hr instead of 65ml/hr. Informed RN. Percent of energy/protein needs met: 95%/48% Burn Absent Trauma Absent GI Symptoms None Current % PO Negligible Minimum of two criteria Yes Muscle Mass Mild Depletion (non-severe) Fluid Accumulation Mild (non-severe) Reduced [employer] Strength Measurably Reduced (severe) #2 Nutrition Diagnosis Malnutrition Diagnosis Progress(for reassessment Continues documentation) #1 Nutrition Diagnosis Inadequate oral intake Diagnosis Progress(for reassessment Continues documentation) Is patient on ventilator? Yes Is Patient Ambulatory and/or Out of Bed No REE-([place]-confined to bed) 2520.672 Kcal/Kg value to use for calculation 17 Approximate Energy Requirements Using 2094 kcal/Kg Calculation Used for Recommendations Kcal/kg Additional Notes Protein needs are 173g ( greater than 2g/kg IBW) Fluid needs are 1 ml/kcal Nutrition Intervention Change Diet Order: Continue TF via PEG Nutrition Support: Osmolite 1.5 at 65 ml/hr. Flush 200 ml q4h. Kcal 2,340 Protein (gm) 98 Fluid (mL) 1,189 Goal #1 Meet at least 75% of pt's energy and protein needs via TF Anticipated Discharge Needs: unable to determine at this time Follow-Up By: 03/22/20 Additional Comments F/U for TF at goal rate
--- NOTE | 2020-03-18 13:02 | Progress Note ---
Assessment and Plan Patient sleeping at this time. Resting on assist control mechanical ventilation, rate 12 , Tidal volume 450, FIO2 30%, PEEP 6 and O2 saturation running 100%. Patients blood presure running slightly low. Patient also slightly tachycardic. Otherwise patient tolerating present ventilator settings. ABG FIO2 30%. ABG pH 7.454 (7.320-7.450) H 03/12/20 04:45 POC ABG pCO2 45.6 mmHg (32.0-48.0) 03/12/20 04:45 ABG pCO2 47.8 mm Hg 02/20/20 06:45 POC ABG pO2 69.2 mmHg (83-108) L 03/12/20 04:45 ABG pO2 88.7 mm Hg (80.0-90.0) 02/20/20 06:45 POC ABG HCO3 31.3 03/12/20 04:45 ABG O2 Saturation 97.2 % (95.0-99.0) 02/20/20 06:45 Recommend spontaneous breathing trials. Patient afebrile. No leukocytosis. Chest xray done 03/10/20reported Mild CHF. Patient is on Apixaban and prevacid. I spent critical care time of 35 minutes on this patient review the chart, obtain history , examining the patient, review chest xray, labs, talking to the nursing staff and respiratory therapy and work out plan of treatment un this cri tically ill patient. - Patient Problems (1) Acute respiratory failure Current Visit: Yes Status: Acute Plan to address problem: Patient is on mechanical ventilation assist control , rate 12, Tidal volume 450, FIO2 30%, PEEP 6. Albuterol/atrovent aerosol treatments. Continue apixaban Continue prevacid. Recommend spontaneous breathing trials. (2) COPD exacerbation Current Visit: No Status: Acute Plan to address problem: Patient is on mechanical ventilation assist control , rate 12, Tidal volume 450, FIO2 30%, PEEP 6. Albuterol/atrovent aerosol treatments. Continue apixaban Continue prevacid. Recommend spontaneous breathing trials. (3) Bilateral pneumonia Current Visit: Yes Status: Acute Plan to address problem: Chest xray 03/10/20 reported CHF Patient afebrile. No leukocytosis. (4) CHF exacerbation Current Visit: Yes Status: Acute Plan to address problem: Management as per cardiology. (5) Cardiomyopathy Current Visit: Yes Status: Acute Plan to address problem: Management as per cardiology. (6) Pancreatic lesion Current Visit: Yes Status: Acute Plan to address problem: Management as per primary care. (7) Paroxysmal atrial fibrillation Current Visit: Yes Status: Acute Plan to address problem: Patient is on apixaban. Management as per cardiology. (8) CVA (cerebral vascular accident) Current Visit: No Status: Acute Qualifiers: Precerebral and cerebral artery: middle cerebral artery Laterality of affected vessel: right Plan to address problem: Management as per primary care. (9) Cocaine dependence Current Visit: No Status: Acute Plan to address problem: Management as per primary care. (10) HTN (hypertension) Current Visit: No Status: Acute Qualifiers: Hypertension type: essential hypertension Qualified Code(s): I10 - E ssential (primary) hypertension Plan to address problem: Management as per primary care. (11) Nicotine dependence Current Visit: No Status: Acute Qualifiers: Nicotine product type: cigarettes Substance use status: in withdrawal Qu alified Code(s): F17.213 - Nicotine dependence, cigarettes, with withdrawal Plan to address problem: Counseled to stop smoking. (12) Obesity hypoventilation syndrome Current Visit: No Status: Acute Plan to address problem: Patient S/P tracheostomy and on mechanical ventilation. Subjective Date of service: 03/18/20 Principal diagnosis: Ac hypoxemic resp failure; Pneumonia; PUI COVID-19; CHF; COPD; HTN Interval history: Patient sleeping at this time. Resting on assist control mechanical ventilation, rate 12 , Tidal volume 450, FIO2 30%, PEEP 6 and O2 saturation running 100%. Patients blood presure running slightly low. Patient also slightly tachycardic. Otherwise patient tolerating present ventilator settings. ABG FIO2 30%. ABG pH 7.454 (7.320-7.450) H 03/12/20 04:45 POC ABG pCO2 45.6 mmHg (32.0-48.0) 03/12/20 04:45 ABG pCO2 47.8 mm Hg 02/20/20 06:45 POC ABG pO2 69.2 mmHg (83-108) L 03/12/20 04:45 ABG pO2 88.7 mm Hg (80.0-90.0) 02/20/20 06:45 POC ABG HCO3 31.3 12/19/20 04:45 ABG O2 Saturation 97.2 % (95.0-99.0) 02/20/20 06:45 Recommend spontaneous breathing trials. Patient afebrile. No leukocytosis. Chest xray done 03/10/20reported Mild CHF. Patient is on Apixaban and prevacid. Objective Vital Signs - 12hr 03/18/20 03/18/20 03/18/20 01:05 01:06 01:11 Temperature Pulse Rate 141 H 136 H Respiratory 18 33 H Rate Blood Pressure 102/66 102/66 O2 Sat by Pulse 99 99 Oximetry O2 Sat by Pulse 99 Oximetry [ Assessment] 03/18/20 03/18/20 03/18/20 01:15 01:21 01:25 Temperature Pulse Rate 125 H 135 H 135 H Respiratory 22 25 H 31 H Rate Blood Pressure 102/66 102/66 102/66 O2 Sat by Pulse 99 100 97 Oximetry O2 Sat by Pulse Oximetry [ Assessment] 03/18/20 03/18/20 03/18/20 01:30 01:35 01:41 Temperature Pulse Rate 133 H 140 H 141 H Respiratory 22 26 H 36 H Rate Blood Pressure 104/78 104/78 104/78 O2 Sat by Pulse 98 98 95 Oximetry O2 Sat by Pulse Oximetry [ Assessment] 03/18/20 03/18/20 03/18/20 01:45 01:51 01:55 Temperature Pulse Rate 134 H 139 H 130 H Respiratory 28 H 35 H 21 Rate Blood Pressure 104/78 104/78 104/78 O2 Sat by Pulse 100 97 100 Oximetry O2 Sat by Pulse Oximetry [ Assessment] 03/18/20 03/18/20 03/18/20 02:00 02:05 02:11 Temperature Pulse Rate 124 H 128 H 122 H Respiratory 22 18 19 Rate Blood Pressure 101/79 104/78 104/78 O2 Sat by Pulse 98 99 99 Oximetry O2 Sat by Pulse Oximetry [ Assessment] 03/18/20 03/18/20 03/18/20 02:15 02:21 02:25 Temperature Pulse Rate 121 H 124 H 118 H Respiratory 28 H 16 22 Rate Blood Pressure 104/78 104/78 104/78 O2 Sat by Pulse 96 100 99 Oximetry O2 Sat by Pulse Oximetry [ Assessment] 03/18/20 03/18/20 03/18/20 02:31 02:35 02:41 Temperature Pulse Rate 120 H 114 H 111 H Respiratory 19 21 18 Rate Blood Pressure 98/73 101/79 101/79 O2 Sat by Pulse 97 99 98 Oximetry O2 Sat by Pulse Oximetry [ Assessment] 03/18/20 03/18/20 03/18/20 02:45 02:51 02:55 Temperature Pulse Rate 105 H 107 H 109 H Respiratory 18 18 16 Rate Blood Pressure 101/79 101/79 101/79 O2 Sat by Pulse 96 96 97 Oximetry O2 Sat by Pulse Oximetry [ Assessment] 03/18/20 03/18/20 03/18/20 03:00 03:05 03:15 Temperature Pulse Rate 106 H 104 H 118 H Respiratory 13 13 16 Rate Blood Pressure 96/61 96/61 96/61 O2 Sat by Pulse 98 97 96 Oximetry O2 Sat by Pulse Oximetry [ Assessment] 03/18/20 03/18/20 03/18/20 03:30 03:38 03:45 Temperature 97.5 F L Pulse Rate 115 H 126 H Respiratory 16 19 Rate Blood Pressure 87/64 87/64 O2 Sat by Pulse 96 97 Oximetry O2 Sat by Pulse Oximetry [ Assessment] 03/18/20 03/18/20 03/18/20 04:01 04:15 04:30 Temperature Pulse Rate 125 H 120 H 133 H Respiratory 25 H 20 21 Rate Blood Pressure 106/65 106/65 104/80 O2 Sat by Pulse 95 100 98 Oximetry O2 Sat by Pulse Oximetry [ Assessment] 03/18/20 03/18/20 03/18/20 04:45 04:46 05:00 Temperature Pulse Rate 134 H 127 H 126 H Respiratory 24 18 Rate Blood Pressure 104/80 95/75 O2 Sat by Pulse 98 97 Oximetry O2 Sat by Pulse Oximetry [ Assessment] 03/18/20 03/18/20 03/18/20 05:15 05:30 05:45 Temperature Pulse Rate 110 H 108 H 106 H Respiratory 18 18 20 Rate Blood Pressure 95/75 98/68 98/68 O2 Sat by Pulse 97 99 98 Oximetry O2 Sat by Pulse Oximetry [ Assessment] 03/18/20 03/18/20 03/18/20 06:00 06:15 06:21 Temperature Pulse Rate 130 H 117 H 119 H Respiratory 21 22 Rate Blood Pressure 104/75 104/75 104/75 O2 Sat by Pulse 97 98 99 Oximetry O2 Sat by Pulse Oximetry [ Assessment] 03/18/20 03/18/20 03/18/20 06:30 06:45 07:01 Temperature Pulse Rate 118 H 120 H 123 H Respiratory 18 20 27 H Rate Blood Pressure 93/74 93/74 93/74 O2 Sat by Pulse 95 98 100 Oximetry O2 Sat by Pulse Oximetry [ Assessment] 03/18/20 03/18/20 03/18/20 07:15 07:30 07:45 Temperature Pulse Rate 128 H 117 H 122 H Respiratory 28 H 18 19 Rate Blood Pressure 102/68 103/77 103/77 O2 Sat by Pulse 96 97 98 Oximetry O2 Sat by Pulse Oximetry [ Assessment] 03/18/20 03/18/20 03/18/20 08:00 08:05 08:15 Temperature 97.4 F L Pulse Rate 113 H 109 H 121 H Respiratory 19 20 Rate Blood Pressure 89/68 89/68 103/77 O2 Sat by Pulse 98 97 97 Oximetry O2 Sat by Pulse 97 Oximetry [ Assessment] 03/18/20 03/18/20 03/18/20 08:30 08:45 09:00 Temperature Pulse Rate 107 H 108 H 105 H Respiratory 19 18 19 Rate Blood Pressure 99/75 99/75 95/74 O2 Sat by Pulse 99 98 98 Oximetry O2 Sat by Pulse Oximetry [ Assessment] 03/18/20 03/18/20 03/18/20 09:15 09:31 09:39 Temperature Pulse Rate 114 H 131 H 113 H Respiratory 20 32 H Rate Blood Pressure 95/74 99/76 99/76 O2 Sat by Pulse 99 99 Oximetry O2 Sat by Pulse Oximetry [ Assessment] 03/18/20 03/18/20 03/18/20 09:45 10:01 10:15 Temperature Pulse Rate 107 H 99 H 107 H Respiratory 18 18 25 H Rate Blood Pressure 99/76 111/78 111/78 O2 Sat by Pulse 99 99 96 Oximetry O2 Sat by Pulse Oximetry [ Assessment] 03/18/20 03/18/20 03/18/20 10:31 10:45 11:00 Temperature Pulse Rate 104 H 117 H 123 H Respiratory 15 19 24 Rate Blood Pressure 105/69 105/69 93/69 O2 Sat by Pulse 98 100 100 Oximetry O2 Sat by Pulse Oximetry [ Assessment] 03/18/20 03/18/20 03/18/20 11:15 11:30 11:45 Temperature Pulse Rate 122 H 123 H 115 H Respiratory 13 28 H 19 Rate Blood Pressure 93/69 90/71 90/71 O2 Sat by Pulse 99 100 Oximetry O2 Sat by Pulse Oximetry [ Assessment] 03/18/20 03/18/20 03/18/20 12:00 12:01 12:15 Temperature 98.2 F Pulse Rate 124 H 126 H Respiratory 25 H 22 Rate Blood Pressure 99/78 99/78 O2 Sat by Pulse 100 100 Oximetry O2 Sat by Pulse Oximetry [ Assessment] Constitutional: no acute distress, asleep Eyes: non-icteric ENT: oropharynx moist, other (+ midline tracheostomy) Neck: supple, no JVD Effort: mildly labored Ascultation: Bilateral: diminished breath sounds, rhonchi, other (tracheal secretions ) Percussion: Bilateral: not dull Cardiovascular: irregular rhythm Gastrointestinal: normoactive bowel sounds, soft, non-tender, non-distended (protuberant), other (protuberant; PEG in place) Integumentary: normal Extremities: no cyanosis, pulses normal, no ischemia or petechiae, edema (bilateral lower) Neurologic: non-focal exam (moves extremities), pupils equal and round, other ( intermittent agitation) Psychiatric: other (Sleeping.) CBC and BMP: 03/15/20 04:05 03/19/20 07:50 ABG, PT/INR, D-dimer: ABG ABG pH 7.454 (7.320-7.450) H 03/12/20 04:45 POC ABG pCO2 45.6 mmHg (32.0-48.0) 03/12/20 04:45 ABG pCO2 47.8 mm Hg 02/20/20 06:45 POC ABG pO2 69.2 mmHg (83-108) L 03/12/20 04:45 ABG pO2 88.7 mm Hg (80.0-90.0) 02/20/20 06:45 POC ABG HCO3 31.3 03/12/20 04:45 ABG O2 Saturation 97.2 % (95.0-99.0) 02/20/20 06:45 PT/INR, D-dimer PT 27.0 Sec. (12.2-14.9) H 02/07/20 15:03 INR 2.46 (0.87-1.13) H 02/07/20 15:03 Abnormal lab findings: Abnormal Labs 11/24/19 11/24/19 11/24/19 02:53 02:53 03:45 WBC 14.3 H RBC Hgb Hct MCHC RDW 17.2 H MCV MCH Lymph % (Auto) [place] % (Auto) [place] # Eos # Lymph # (Auto) [place] # (Auto) Eos # (Auto) Seg Neutrophils % Seg Neuts % (Manual) Baso # (Auto) Lymphocytes % (Manual) Monocytes % (Manual) Eosinophils % (Manual) Basophils % (Manual) Seg Neutrophils # Seg Neutrophils # Man 8.3 H Lymphocytes # (Manual) Monocytes # (Manual) 0.9 H Eosinophils # (Manual) Nucleated RBC % Basophils # (Manual) PT INR APTT Heparin Anti-Xa Level ABG pH 7.313 L POC ABG pO2 ABG pO2 102.8 H ABG HCO3 ABG O2 Saturation ABG Base Excess -2.9 L POC ABG pCO2 ABG Hemoglobin ABG Oxyhemoglobin ABG Sodium ABG Chloride ABG Glucose Oxyhemoglobin 93.9 L Sodium Potassium Chloride Carbon Dioxide BUN Creatinine Glucose 195 H POC Glucose Lactic Acid Calcium Phosphorus Magnesium AST ALT Lactate Dehydrogenase Total Bilirubin Direct Bilirubin CK-MB (CK-2) 4.3 H C-Reactive Protein NT-Pro-B Natriuret Pep 1181 H Total Protein Albumin Arterial Blood Glucose Urine WBC (Auto) Urine Creatinine 11/24/19 11/24/19 11/24/19 04:53 04:53 10:37 WBC RBC Hgb Hct MCHC RDW MCV MCH Lymph % (Auto) [place] % (Auto) [place] # Eos # Lymph # (Auto) [place] # (Auto) Eos # (Auto) Seg Neutrophils % Seg Neuts % (Manual) Baso # (Auto) Lymphocytes % (Manual) Monocytes % (Manual) Eosinophils % (Manual) Basophils % (Manual) Seg Neutrophils # Seg Neutrophils # Man Lymphocytes # (Manual) Monocytes # (Manual) Eosinophils # (Manual) Nucleated RBC % Basophils # (Manual) PT INR APTT Heparin Anti-Xa Level ABG pH POC ABG pO2 ABG pO2 ABG HCO3 ABG O2 Saturation ABG Base Excess POC ABG pCO2 ABG Hemoglobin ABG Oxyhemoglobin ABG Sodium ABG Chloride ABG Glucose Oxyhemoglobin Sodium Potassium Chloride Carbon Dioxide BUN Creatinine Glucose 162 H POC Glucose Lactic Acid 2.40 H* 2.50 H* Calcium Phosphorus Magnesium AST ALT Lactate Dehydrogenase 240 H Total Bilirubin Direct Bilirubin CK-MB (CK-2) C-Reactive Protein NT-Pro-B Natriuret Pep Total Protein Albumin Arterial Blood Glucose Urine WBC (Auto) Urine Creatinine 11/24/19 11/24/19 11/24/19 12:21 14:50 19:54 WBC RBC Hgb Hct MCHC RDW MCV MCH Lymph % (Auto) [place] % (Auto) [place] # Eos # Lymph # (Auto) [place] # (Auto) Eos # (Auto) Seg Neutrophils % Seg Neuts % (Manual) Baso # (Auto) Lymphocytes % (Manual) Monocytes % (Manual) Eosinophils % (Manual) Basophils % (Manual) Seg Neutrophils # Seg Neutrophils # Man Lymphocytes # (Manual) Monocytes # (Manual) Eosinophils # (Manual) Nucleated RBC % Basophils # (Manual) PT INR APTT Heparin Anti-Xa Level ABG pH POC ABG pO2 ABG pO2 ABG HCO3 ABG O2 Saturation ABG Base Excess POC ABG pCO2 ABG Hemoglobin ABG Oxyhemoglobin ABG Sodium ABG Chloride ABG Glucose Oxyhemoglobin Sodium Potassium Chloride Carbon Dioxide BUN Creatinine Glucose POC Glucose 145 H 143 H 124 H Lactic Acid Calcium Phosphorus Magnesium AST ALT Lactate Dehydrogenase Total Bilirubin Direct Bilirubin CK-MB (CK-2) C-Reactive Protein NT-Pro-B Natriuret Pep Total Protein Albumin Arterial Blood Glucose Urine WBC (Auto) Urine Creatinine 11/25/19 11/25/19 11/25/19 00:18 03:18 05:11 WBC 13.7 H RBC Hgb Hct MCHC RDW 17.1 H MCV MCH Lymph % (Auto) 10.8 L [place] % (Auto) 8.7 H [place] # 1.2 H Eos # Lymph # (Auto) [place] # (Auto) Eos # (Auto) Seg Neutrophils % 80.2 H Seg Neuts % (Manual) Baso # (Auto) Lymphocytes % (Manual) Monocytes % (Manual) Eosinophils % (Manual) Basophils % (Manual) Seg Neutrophils # 11.0 H Seg Neutrophils # Man Lymphocytes # (Manual) Monocytes # (Manual) Eosinophils # (Manual) Nucleated RBC % Basophils # (Manual) PT INR APTT Heparin Anti-Xa Level ABG pH 7.333 L POC ABG pO2 ABG pO2 61.2 L ABG HCO3 ABG O2 Saturation 90.2 L ABG Base Excess POC ABG pCO2 ABG Hemoglobin 13.7 L ABG Oxyhemoglobin ABG Sodium ABG Chloride ABG Glucose Oxyhemoglobin 88.2 L Sodium Potassium Chloride Carbon Dioxide BUN Creatinine Glucose POC Glucose 109 H Lactic Acid Calcium Phosphorus Magnesium AST ALT Lactate Dehydrogenase Total Bilirubin Direct Bilirubin CK-MB (CK-2) C-Reactive Protein NT-Pro-B Natriuret Pep Total Protein Albumin Arterial Blood Glucose Urine WBC (Auto) Urine Creatinine 11/25/19 11/25/19 11/26/19 05:11 11:40 03:12 WBC RBC Hgb Hct MCHC RDW MCV MCH Lymph % (Auto) [place] % (Auto) [place] # Eos # Lymph # (Auto) [place] # (Auto) Eos # (Auto) Seg Neutrophils % Seg Neuts % (Manual) Baso # (Auto) Lymphocytes % (Manual) Monocytes % (Manual) Eosinophils % (Manual) Basophils % (Manual) Seg Neutrophils # Seg Neutrophils # Man Lymphocytes # (Manual) Monocytes # (Manual) Eosinophils # (Manual) Nucleated RBC % Basophils # (Manual) PT INR APTT Heparin Anti-Xa Level ABG pH POC ABG pO2 ABG pO2 155.1 H ABG HCO3 27.8 H ABG O2 Saturation ABG Base Excess POC ABG pCO2 ABG Hemoglobin 12.2 L ABG Oxyhemoglobin ABG Sodium ABG Chloride ABG Glucose Oxyhemoglobin Sodium Potassium Chloride Carbon Dioxide BUN 23 H Creatinine Glucose 110 H POC Glucose 108 H Lactic Acid Calcium Phosphorus Magnesium AST ALT Lactate Dehydrogenase Total Bilirubin Direct Bilirubin CK-MB (CK-2) C-Reactive Protein NT-Pro-B Natriuret Pep Total Protein Albumin Arterial Blood Glucose Urine WBC (Auto) Urine Creatinine 11/26/19 11/26/19 11/26/19 06:17 10:43 10:43 WBC 11.4 H RBC Hgb Hct MCHC RDW 17.1 H MCV MCH Lymph % (Auto) [place] % (Auto) [place] # Eos # Lymph # (Auto) [place] # (Auto) Eos # (Auto) Seg Neutrophils % Seg Neuts % (Manual) Baso # (Auto) Lymphocytes % (Manual) Monocytes % (Manual) Eosinophils % (Manual) Basophils % (Manual) Seg Neutrophils # Seg Neutrophils # Man Lymphocytes # (Manual) Monocytes # (Manual) Eosinophils # (Manual) Nucleated RBC % Basophils # (Manual) PT INR APTT Heparin Anti-Xa Level ABG pH POC ABG pO2 ABG pO2 ABG HCO3 ABG O2 Saturation ABG Base Excess POC ABG pCO2 ABG Hemoglobin ABG Oxyhemoglobin ABG Sodium ABG Chloride ABG Glucose Oxyhemoglobin Sodium Potassium Chloride Carbon Dioxide BUN 29 H Creatinine Glucose POC Glucose 107 H Lactic Acid Calcium Phosphorus Magnesium AST ALT Lactate Dehydrogenase Total Bilirubin Direct Bilirubin CK-MB (CK-2) C-Reactive Protein NT-Pro-B Natriuret Pep Total Protein Albumin Arterial Blood Glucose Urine WBC (Auto) Urine Creatinine 11/26/19 11/27/19 11/27/19 17:11 01:53 04:11 WBC RBC Hgb Hct MCHC RDW MCV MCH Lymph % (Auto) [place] % (Auto) [place] # Eos # Lymph # (Auto) [place] # (Auto) Eos # (Auto) Seg Neutrophils % Seg Neuts % (Manual) Baso # (Auto) Lymphocytes % (Manual) Monocytes % (Manual) Eosinophils % (Manual) Basophils % (Manual) Seg Neutrophils # Seg Neutrophils # Man Lymphocytes # (Manual) Monocytes # (Manual) Eosinophils # (Manual) Nucleated RBC % Basophils # (Manual) PT INR APTT Heparin Anti-Xa Level ABG pH POC ABG pO2 ABG pO2 ABG HCO3 29.2 H ABG O2 Saturation ABG Base Excess 3.4 H POC ABG pCO2 ABG Hemoglobin 13.3 L ABG Oxyhemoglobin ABG Sodium ABG Chloride ABG Glucose Oxyhemoglobin 94.5 L Sodium Potassium Chloride Carbon Dioxide BUN Creatinine Glucose POC Glucose 113 H 108 H Lactic Acid Calcium Phosphorus Magnesium AST ALT Lactate Dehydrogenase Total Bilirubin Direct Bilirubin CK-MB (CK-2) C-Reactive Protein NT-Pro-B Natriuret Pep Total Protein Albumin Arterial Blood Glucose Urine WBC (Auto) Urine Creatinine 11/27/19 11/28/19 11/28/19 05:27 05:00 05:25 WBC RBC Hgb Hct MCHC RDW MCV MCH Lymph % (Auto) [place] % (Auto) [place] # Eos # Lymph # (Auto) [place] # (Auto) Eos # (Auto) Seg Neutrophils % Seg Neuts % (Manual) Baso # (Auto) Lymphocytes % (Manual) Monocytes % (Manual) Eosinophils % (Manual) Basophils % (Manual) Seg Neutrophils # Seg Neutrophils # Man Lymphocytes # (Manual) Monocytes # (Manual) Eosinophils # (Manual) Nucleated RBC % Basophils # (Manual) PT INR APTT Heparin Anti-Xa Level ABG pH POC ABG pO2 68.1 L ABG pO2 ABG HCO3 ABG O2 Saturation ABG Base Excess POC ABG pCO2 ABG Hemoglobin ABG Oxyhemoglobin 91.2 L ABG Sodium ABG Chloride ABG Glucose Oxyhemoglobin Sodium Potassium Chloride Carbon Dioxide BUN Creatinine Glucose POC Glucose 111 H 110 H Lactic Acid Calcium Phosphorus Magnesium AST ALT Lactate Dehydrogenase Total Bilirubin Direct Bilirubin CK-MB (CK-2) C-Reactive Protein NT-Pro-B Natriuret Pep Total Protein Albumin Arterial Blood Glucose Urine WBC (Auto) Urine Creatinine 11/28/19 11/28/19 11/28/19 12:08 13:47 13:47 WBC 11.3 H RBC Hgb Hct MCHC RDW 16.1 H MCV MCH Lymph % (Auto) [place] % (Auto) 9.9 H [place] # 1.1 H Eos # Lymph # (Auto) [place] # (Auto) Eos # (Auto) Seg Neutrophils % 71.4 H Seg Neuts % (Manual) Baso # (Auto) Lymphocytes % (Manual) Monocytes % (Manual) Eosinophils % (Manual) Basophils % (Manual) Seg Neutrophils # 8.1 H Seg Neutrophils # Man Lymphocytes # (Manual) Monocytes # (Manual) Eosinophils # (Manual) Nucleated RBC % Basophils # (Manual) PT INR APTT Heparin Anti-Xa Level ABG pH POC ABG pO2 ABG pO2 ABG HCO3 ABG O2 Saturation ABG Base Excess POC ABG pCO2 ABG Hemoglobin ABG Oxyhemoglobin ABG Sodium ABG Chloride ABG Glucose Oxyhemoglobin Sodium Potassium Chloride Carbon Dioxide BUN 23 H Creatinine Glucose 123 H POC Glucose 112 H Lactic Acid Calcium Phosphorus Magnesium AST ALT Lactate Dehydrogenase Total Bilirubin Direct Bilirubin CK-MB (CK-2) C-Reactive Protein NT-Pro-B Natriuret Pep Total Protein Albumin 3.7 L Arterial Blood Glucose Urine WBC (Auto) Urine Creatinine 11/28/19 11/29/19 11/29/19 17:26 03:55 17:04 WBC RBC Hgb Hct MCHC RDW MCV MCH Lymph % (Auto) [place] % (Auto) [place] # Eos # Lymph # (Auto) [place] # (Auto) Eos # (Auto) Seg Neutrophils % Seg Neuts % (Manual) Baso # (Auto) Lymphocytes % (Manual) Monocytes % (Manual) Eosinophils % (Manual) Basophils % (Manual) Seg Neutrophils # Seg Neutrophils # Man Lymphocytes # (Manual) Monocytes # (Manual) Eosinophils # (Manual) Nucleated RBC % Basophils # (Manual) PT INR APTT Heparin Anti-Xa Level ABG pH POC ABG pO2 ABG pO2 65.7 L ABG HCO3 28.3 H ABG O2 Saturation 93.9 L ABG Base Excess 3.6 H POC ABG pCO2 ABG Hemoglobin 13.3 L ABG Oxyhemoglobin ABG Sodium ABG Chloride ABG Glucose Oxyhemoglobin 91.5 L Sodium Potassium Chloride Carbon Dioxide BUN Creatinine Glucose POC Glucose 123 H 119 H Lactic Acid Calcium Phosphorus Magnesium AST ALT Lactate Dehydrogenase Total Bilirubin Direct Bilirubin CK-MB (CK-2) C-Reactive Protein NT-Pro-B Natriuret Pep Total Protein Albumin Arterial Blood Glucose Urine WBC (Auto) Urine Creatinine 11/30/19 11/30/19 11/30/19 04:17 04:17 04:56 WBC 13.4 H RBC Hgb Hct MCHC RDW 15.6 H MCV MCH Lymph % (Auto) [place] % (Auto) [place] # Eos # Lymph # (Auto) [place] # (Auto) Eos # (Auto) Seg Neutrophils % Seg Neuts % (Manual) Baso # (Auto) Lymphocytes % (Manual) Monocytes % (Manual) Eosinophils % (Manual) Basophils % (Manual) Seg Neutrophils # Seg Neutrophils # Man Lymphocytes # (Manual) Monocytes # (Manual) Eosinophils # (Manual) Nucleated RBC % Basophils # (Manual) PT INR APTT Heparin Anti-Xa Level ABG pH POC ABG pO2 ABG pO2 56.3 L ABG HCO3 29.3 H ABG O2 Saturation 91.5 L ABG Base Excess 4.7 H POC ABG pCO2 ABG Hemoglobin 12.1 L ABG Oxyhemoglobin ABG Sodium ABG Chloride ABG Glucose Oxyhemoglobin 89.2 L Sodium 147 H Potassium Chloride Carbon Dioxide BUN 30 H Creatinine Glucose 124 H POC Glucose Lactic Acid Calcium Phosphorus Magnesium AST ALT Lactate Dehydrogenase Total Bilirubin Direct Bilirubin CK-MB (CK-2) C-Reactive Protein NT-Pro-B Natriuret Pep Total Protein Albumin 3.8 L Arterial Blood Glucose Urine WBC (Auto) Urine Creatinine 11/30/19 11/30/19 11/30/19 05:51 11:54 18:17 WBC RBC Hgb Hct MCHC RDW MCV MCH Lymph % (Auto) [place] % (Auto) [place] # Eos # Lymph # (Auto) [place] # (Auto) Eos # (Auto) Seg Neutrophils % Seg Neuts % (Manual) Baso # (Auto) Lymphocytes % (Manual) Monocytes % (Manual) Eosinophils % (Manual) Basophils % (Manual) Seg Neutrophils # Seg Neutrophils # Man Lymphocytes # (Manual) Monocytes # (Manual) Eosinophils # (Manual) Nucleated RBC % Basophils # (Manual) PT INR APTT Heparin Anti-Xa Level ABG pH POC ABG pO2 ABG pO2 ABG HCO3 ABG O2 Saturation ABG Base Excess POC ABG pCO2 ABG Hemoglobin ABG Oxyhemoglobin ABG Sodium ABG Chloride ABG Glucose Oxyhemoglobin Sodium Potassium Chloride Carbon Dioxide BUN Creatinine Glucose POC Glucose 127 H 115 H 143 H Lactic Acid Calcium Phosphorus Magnesium AST ALT Lactate Dehydrogenase Total Bilirubin Direct Bilirubin CK-MB (CK-2) C-Reactive Protein NT-Pro-B Natriuret Pep Total Protein Albumin Arterial Blood Glucose Urine WBC (Auto) Urine Creatinine 12/01/19 12/01/19 12/01/19 01:18 05:22 12:16 WBC RBC Hgb Hct MCHC RDW MCV MCH Lymph % (Auto) [place] % (Auto) [place] # Eos # Lymph # (Auto) [place] # (Auto) Eos # (Auto) Seg Neutrophils % Seg Neuts % (Manual) Baso # (Auto) Lymphocytes % (Manual) Monocytes % (Manual) Eosinophils % (Manual) Basophils % (Manual) Seg Neutrophils # Seg Neutrophils # Man Lymphocytes # (Manual) Monocytes # (Manual) Eosinophils # (Manual) Nucleated RBC % Basophils # (Manual) PT INR APTT Heparin Anti-Xa Level ABG pH POC ABG pO2 ABG pO2 ABG HCO3 ABG O2 Saturation ABG Base Excess POC ABG pCO2 ABG Hemoglobin ABG Oxyhemoglobin ABG Sodium ABG Chloride ABG Glucose Oxyhemoglobin Sodium Potassium 3.5 L Chloride 107.8 H Carbon Dioxide BUN 37 H Creatinine Glucose 157 H POC Glucose 118 H 148 H Lactic Acid Calcium 8.2 L D Phosphorus Magnesium AST 48 H ALT 60 H Lactate Dehydrogenase 194 H Total Bilirubin Direct Bilirubin CK-MB (CK-2) C-Reactive Protein 8.50 H NT-Pro-B Natriuret Pep Total Protein 5.5 L Albumin 2.8 L Arterial Blood Glucose Urine WBC (Auto) Urine Creatinine 12/01/19 12/02/19 12/02/19 18:04 00:05 05:16 WBC 11.4 H RBC Hgb Hct MCHC RDW 15.9 H MCV MCH Lymph % (Auto) [place] % (Auto) 9.9 H [place] # 1.1 H Eos # Lymph # (Auto) [place] # (Auto) Eos # (Auto) Seg Neutrophils % 70.3 H Seg Neuts % (Manual) Baso # (Auto) Lymphocytes % (Manual) Monocytes % (Manual) Eosinophils % (Manual) Basophils % (Manual) Seg Neutrophils # 8.0 H Seg Neutrophils # Man Lymphocytes # (Manual) Monocytes # (Manual) Eosinophils # (Manual) Nucleated RBC % Basophils # (Manual) PT INR APTT Heparin Anti-Xa Level ABG pH POC ABG pO2 ABG pO2 ABG HCO3 ABG O2 Saturation ABG Base Excess POC ABG pCO2 ABG Hemoglobin ABG Oxyhemoglobin ABG Sodium ABG Chloride ABG Glucose Oxyhemoglobin Sodium Potassium Chloride Carbon Dioxide BUN Creatinine Glucose POC Glucose 143 H 107 H Lactic Acid Calcium Phosphorus Magnesium AST ALT Lactate Dehydrogenase Total Bilirubin Direct Bilirubin CK-MB (CK-2) C-Reactive Protein NT-Pro-B Natriuret Pep Total Protein Albumin Arterial Blood Glucose Urine WBC (Auto) Urine Creatinine 12/02/19 12/02/19 12/02/19 05:16 06:03 11:52 WBC RBC Hgb Hct MCHC RDW MCV MCH Lymph % (Auto) [place] % (Auto) [place] # Eos # Lymph # (Auto) [place] # (Auto) Eos # (Auto) Seg Neutrophils % Seg Neuts % (Manual) Baso # (Auto) Lymphocytes % (Manual) Monocytes % (Manual) Eosinophils % (Manual) Basophils % (Manual) Seg Neutrophils # Seg Neutrophils # Man Lymphocytes # (Manual) Monocytes # (Manual) Eosinophils # (Manual) Nucleated RBC % Basophils # (Manual) PT INR APTT Heparin Anti-Xa Level ABG pH POC ABG pO2 ABG pO2 ABG HCO3 ABG O2 Saturation ABG Base Excess POC ABG pCO2 ABG Hemoglobin ABG Oxyhemoglobin ABG Sodium ABG Chloride ABG Glucose Oxyhemoglobin Sodium 146 H Potassium Chloride Carbon Dioxide BUN 28 H Creatinine Glucose 123 H POC Glucose 110 H 152 H Lactic Acid Calcium Phosphorus Magnesium AST ALT Lactate Dehydrogenase Total Bilirubin Direct Bilirubin CK-MB (CK-2) C-Reactive Protein NT-Pro-B Natriuret Pep Total Protein Albumin Arterial Blood Glucose Urine WBC (Auto) Urine Creatinine 09/12/1212/02/19 12/02/19 12:58 17:58 23:36 WBC RBC Hgb Hct MCHC RDW MCV MCH Lymph % (Auto) [place] % (Auto) [place] # Eos # Lymph # (Auto) [place] # (Auto) Eos # (Auto) Seg Neutrophils % Seg Neuts % (Manual) Baso # (Auto) Lymphocytes % (Manual) Monocytes % (Manual) Eosinophils % (Manual) Basophils % (Manual) Seg Neutrophils # Seg Neutrophils # Man Lymphocytes # (Manual) Monocytes # (Manual) Eosinophils # (Manual) Nucleated RBC % Basophils # (Manual) PT INR APTT Heparin Anti-Xa Level ABG pH POC ABG pO2 78.1 L ABG pO2 ABG HCO3 ABG O2 Saturation ABG Base Excess POC ABG pCO2 ABG Hemoglobin ABG Oxyhemoglobin ABG Sodium ABG Chloride ABG Glucose Oxyhemoglobin Sodium Potassium Chloride Carbon Dioxide BUN Creatinine Glucose POC Glucose 120 H 123 H Lactic Acid Calcium Phosphorus Magnesium AST ALT Lactate Dehydrogenase Total Bilirubin Direct Bilirubin CK-MB (CK-2) C-Reactive Protein NT-Pro-B Natriuret Pep Total Protein Albumin Arterial Blood Glucose Urine WBC (Auto) Urine Creatinine 12/03/19 12/03/19 12/03/19 06:03 06:14 11:46 WBC RBC Hgb Hct MCHC RDW MCV MCH Lymph % (Auto) [place] % (Auto) [place] # Eos # Lymph # (Auto) [place] # (Auto) Eos # (Auto) Seg Neutrophils % Seg Neuts % (Manual) Baso # (Auto) Lymphocytes % (Manual) Monocytes % (Manual) Eosinophils % (Manual) Basophils % (Manual) Seg Neutrophils # Seg Neutrophils # Man Lymphocytes # (Manual) Monocytes # (Manual) Eosinophils # (Manual) Nucleated RBC % Basophils # (Manual) PT INR APTT Heparin Anti-Xa Level ABG pH POC ABG pO2 ABG pO2 ABG HCO3 ABG O2 Saturation ABG Base Excess POC ABG pCO2 ABG Hemoglobin ABG Oxyhemoglobin ABG Sodium ABG Chloride ABG Glucose Oxyhemoglobin Sodium Potassium Chloride Carbon Dioxide BUN Creatinine Glucose POC Glucose 142 H 130 H Lactic Acid Calcium Phosphorus Magnesium AST ALT Lactate Dehydrogenase Total Bilirubin Direct Bilirubin CK-MB (CK-2) C-Reactive Protein NT-Pro-B Natriuret Pep Total Protein Albumin Arterial Blood Glucose Urine WBC (Auto) 8.0 H Urine Creatinine 12/03/19 12/03/1920 15:50 17:39 00:04 WBC RBC Hgb Hct MCHC RDW MCV MCH Lymph % (Auto) [place] % (Auto) [place] # Eos # Lymph # (Auto) [place] # (Auto) Eos # (Auto) Seg Neutrophils % Seg Neuts % (Manual) Baso # (Auto) Lymphocytes % (Manual) Monocytes % (Manual) Eosinophils % (Manual) Basophils % (Manual) Seg Neutrophils # Seg Neutrophils # Man Lymphocytes # (Manual) Monocytes # (Manual) Eosinophils # (Manual) Nucleated RBC % Basophils # (Manual) PT INR APTT Heparin Anti-Xa Level ABG pH POC ABG pO2 ABG pO2 ABG HCO3 ABG O2 Saturation ABG Base Excess POC ABG pCO2 ABG Hemoglobin ABG Oxyhemoglobin ABG Sodium ABG Chloride ABG Glucose Oxyhemoglobin Sodium Potassium Chloride Carbon Dioxide BUN Creatinine Glucose POC Glucose 146 H 133 H Lactic Acid Calcium Phosphorus 2.40 L Magnesium AST ALT Lactate Dehydrogenase Total Bilirubin Direct Bilirubin CK-MB (CK-2) C-Reactive Protein NT-Pro-B Natriuret Pep Total Protein Albumin Arterial Blood Glucose Urine WBC (Auto) Urine Creatinine 12/04/19 12/04/19 12/04/19 03:58 03:58 05:22 WBC 12.5 H RBC Hgb 11.2 L Hct 35.2 L MCHC RDW 16.0 H MCV MCH Lymph % (Auto) [place] % (Auto) 9.6 H [place] # 1.2 H Eos # 0.5 H Lymph # (Auto) [place] # (Auto) Eos # (Auto) Seg Neutrophils % Seg Neuts % (Manual) Baso # (Auto) Lymphocytes % (Manual) Monocytes % (Manual) Eosinophils % (Manual) Basophils % (Manual) Seg Neutrophils # 8.6 H Seg Neutrophils # Man Lymphocytes # (Manual) Monocytes # (Manual) Eosinophils # (Manual) Nucleated RBC % Basophils # (Manual) PT INR APTT Heparin Anti-Xa Level ABG pH POC ABG pO2 ABG pO2 ABG HCO3 ABG O2 Saturation ABG Base Excess POC ABG pCO2 ABG Hemoglobin ABG Oxyhemoglobin ABG Sodium ABG Chloride ABG Glucose Oxyhemoglobin Sodium 146 H Potassium Chloride 108.6 H Carbon Dioxide BUN 30 H Creatinine 0.7 L Glucose 121 H POC Glucose 132 H Lactic Acid Calcium Phosphorus Magnesium AST ALT Lactate Dehydrogenase Total Bilirubin Direct Bilirubin CK-MB (CK-2) C-Reactive Protein NT-Pro-B Natriuret Pep Total Protein Albumin Arterial Blood Glucose Urine WBC (Auto) Urine Creatinine 12/04/19 12/04/19 12/05/19 13:26 18:43 00:19 WBC RBC Hgb Hct MCHC RDW MCV MCH Lymph % (Auto) [place] % (Auto) [place] # Eos # Lymph # (Auto) [place] # (Auto) Eos # (Auto) Seg Neutrophils % Seg Neuts % (Manual) Baso # (Auto) Lymphocytes % (Manual) Monocytes % (Manual) Eosinophils % (Manual) Basophils % (Manual) Seg Neutrophils # Seg Neutrophils # Man Lymphocytes # (Manual) Monocytes # (Manual) Eosinophils # (Manual) Nucleated RBC % Basophils # (Manual) PT INR APTT Heparin Anti-Xa Level ABG pH POC ABG pO2 ABG pO2 ABG HCO3 ABG O2 Saturation ABG Base Excess POC ABG pCO2 ABG Hemoglobin ABG Oxyhemoglobin ABG Sodium ABG Chloride ABG Glucose Oxyhemoglobin Sodium Potassium Chloride Carbon Dioxide BUN Creatinine Glucose POC Glucose 185 H 156 H 150 H Lactic Acid Calcium Phosphorus Magnesium AST ALT Lactate Dehydrogenase Total Bilirubin Direct Bilirubin CK-MB (CK-2) C-Reactive Protein NT-Pro-B Natriuret Pep Total Protein Albumin Arterial Blood Glucose Urine WBC (Auto) Urine Creatinine 12/05/19 12/05/19 12/05/19 03:37 03:37 05:14 WBC 16.3 H RBC Hgb 11.4 L Hct MCHC RDW 15.6 H MCV MCH Lymph % (Auto) 9.9 L [place] % (Auto) 9.7 H [place] # 1.6 H Eos # Lymph # (Auto) [place] # (Auto) Eos # (Auto) Seg Neutrophils % 78.0 H Seg Neuts % (Manual) Baso # (Auto) Lymphocytes % (Manual) Monocytes % (Manual) Eosinophils % (Manual) Basophils % (Manual) Seg Neutrophils # 12.7 H Seg Neutrophils # Man Lymphocytes # (Manual) Monocytes # (Manual) Eosinophils # (Manual) Nucleated RBC % Basophils # (Manual) PT INR APTT Heparin Anti-Xa Level ABG pH POC ABG pO2 ABG pO2 ABG HCO3 ABG O2 Saturation ABG Base Excess POC ABG pCO2 ABG Hemoglobin ABG Oxyhemoglobin ABG Sodium ABG Chloride ABG Glucose Oxyhemoglobin Sodium 146 H Potassium Chloride 107.2 H Carbon Dioxide BUN 27 H Creatinine 0.7 L Glucose 171 H POC Glucose 168 H Lactic Acid Calcium Phosphorus Magnesium AST ALT Lactate Dehydrogenase Total Bilirubin Direct Bilirubin CK-MB (CK-2) C-Reactive Protein NT-Pro-B Natriuret Pep Total Protein Albumin Arterial Blood Glucose Urine WBC (Auto) Urine Creatinine 12/05/19 12/05/19 12/05/19 12:31 18:10 23:58 WBC RBC Hgb Hct MCHC RDW MCV MCH Lymph % (Auto) [place] % (Auto) [place] # Eos # Lymph # (Auto) [place] # (Auto) Eos # (Auto) Seg Neutrophils % Seg Neuts % (Manual) Baso # (Auto) Lymphocytes % (Manual) Monocytes % (Manual) Eosinophils % (Manual) Basophils % (Manual) Seg Neutrophils # Seg Neutrophils # Man Lymphocytes # (Manual) Monocytes # (Manual) Eosinophils # (Manual) Nucleated RBC % Basophils # (Manual) PT INR APTT Heparin Anti-Xa Level ABG pH POC ABG pO2 ABG pO2 ABG HCO3 ABG O2 Saturation ABG Base Excess POC ABG pCO2 ABG Hemoglobin ABG Oxyhemoglobin ABG Sodium ABG Chloride ABG Glucose Oxyhemoglobin Sodium Potassium Chloride Carbon Dioxide BUN Creatinine Glucose POC Glucose 159 H 198 H 115 H Lactic Acid Calcium Phosphorus Magnesium AST ALT Lactate Dehydrogenase Total Bilirubin Direct Bilirubin CK-MB (CK-2) C-Reactive Protein NT-Pro-B Natriuret Pep Total Protein Albumin Arterial Blood Glucose Urine WBC (Auto) Urine Creatinine 12/06/19 12/06/19 12/06/19 05:24 05:24 05:25 WBC 14.9 H RBC Hgb 10.8 L Hct 34.0 L MCHC RDW 15.6 H MCV MCH Lymph % (Auto) 10.7 L [place] % (Auto) 8.3 H [place] # 1.2 H Eos # Lymph # (Auto) [place] # (Auto) Eos # (Auto) Seg Neutrophils % 78.7 H Seg Neuts % (Manual) Baso # (Auto) Lymphocytes % (Manual) Monocytes % (Manual) Eosinophils % (Manual) Basophils % (Manual) Seg Neutrophils # 11.7 H Seg Neutrophils # Man Lymphocytes # (Manual) Monocytes # (Manual) Eosinophils # (Manual) Nucleated RBC % Basophils # (Manual) PT INR APTT Heparin Anti-Xa Level ABG pH POC ABG pO2 ABG pO2 ABG HCO3 ABG O2 Saturation ABG Base Excess POC ABG pCO2 ABG Hemoglobin ABG Oxyhemoglobin ABG Sodium ABG Chloride ABG Glucose Oxyhemoglobin Sodium 148 H Potassium 5.1 H Chloride 107.6 H Carbon Dioxide BUN 27 H Creatinine 0.7 L Glucose 155 H POC Glucose 157 H Lactic Acid Calcium Phosphorus Magnesium AST ALT Lactate Dehydrogenase Total Bilirubin Direct Bilirubin CK-MB (CK-2) C-Reactive Protein NT-Pro-B Natriuret Pep Total Protein Albumin Arterial Blood Glucose Urine WBC (Auto) Urine Creatinine 12/07/19 12/07/19 12/07/19 00:13 05:34 11:33 WBC RBC Hgb Hct MCHC RDW MCV MCH Lymph % (Auto) [place] % (Auto) [place] # Eos # Lymph # (Auto) [place] # (Auto) Eos # (Auto) Seg Neutrophils % Seg Neuts % (Manual) Baso # (Auto) Lymphocytes % (Manual) Monocytes % (Manual) Eosinophils % (Manual) Basophils % (Manual) Seg Neutrophils # Seg Neutrophils # Man Lymphocytes # (Manual) Monocytes # (Manual) Eosinophils # (Manual) Nucleated RBC % Basophils # (Manual) PT INR APTT Heparin Anti-Xa Level ABG pH POC ABG pO2 ABG pO2 ABG HCO3 ABG O2 Saturation ABG Base Excess POC ABG pCO2 ABG Hemoglobin ABG Oxyhemoglobin ABG Sodium ABG Chloride ABG Glucose Oxyhemoglobin Sodium Potassium Chloride Carbon Dioxide BUN Creatinine Glucose POC Glucose 142 H 111 H 169 H Lactic Acid Calcium Phosphorus Magnesium AST ALT Lactate Dehydrogenase Total Bilirubin Direct Bilirubin CK-MB (CK-2) C-Reactive Protein NT-Pro-B Natriuret Pep Total Protein Albumin Arterial Blood Glucose Urine WBC (Auto) Urine Creatinine 12/07/19 12/07/19 12/07/19 12:41 13:25 18:19 WBC 12.4 H RBC 3.53 L Hgb 10.2 L Hct 32.1 L MCHC RDW 15.3 H MCV MCH Lymph % (Auto) 10.6 L [place] % (Auto) 7.8 H [place] # 1.0 H Eos # Lymph # (Auto) [place] # (Auto) Eos # (Auto) Seg Neutrophils % 77.6 H Seg Neuts % (Manual) Baso # (Auto) Lymphocytes % (Manual) Monocytes % (Manual) Eosinophils % (Manual) Basophils % (Manual) Seg Neutrophils # 9.6 H Seg Neutrophils # Man Lymphocytes # (Manual) Monocytes # (Manual) Eosinophils # (Manual) Nucleated RBC % Basophils # (Manual) PT INR APTT Heparin Anti-Xa Level ABG pH POC ABG pO2 ABG pO2 ABG HCO3 ABG O2 Saturation ABG Base Excess POC ABG pCO2 ABG Hemoglobin ABG Oxyhemoglobin ABG Sodium ABG Chloride ABG Glucose Oxyhemoglobin Sodium 149 H Potassium Chloride 108.4 H Carbon Dioxide BUN 26 H Creatinine 0.6 L Glucose 149 H POC Glucose 164 H Lactic Acid Calcium Phosphorus Magnesium 2.60 H AST 121 H ALT 145 H Lactate Dehydrogenase Total Bilirubin Direct Bilirubin CK-MB (CK-2) C-Reactive Protein NT-Pro-B Natriuret Pep Total Protein Albumin 2.6 L Arterial Blood Glucose Urine WBC (Auto) Urine Creatinine 12/07/19 12/08/19 12/08/19 22:25 00:02 03:55 WBC 13.3 H RBC 3.40 L Hgb 9.7 L Hct 30.8 L MCHC 31 L RDW 15.5 H MCV MCH Lymph % (Auto) [place] % (Auto) 8.1 H [place] # 1.1 H Eos # Lymph # (Auto) [place] # (Auto) Eos # (Auto) Seg Neutrophils % 73.0 H Seg Neuts % (Manual) Baso # (Auto) Lymphocytes % (Manual) Monocytes % (Manual) Eosinophils % (Manual) Basophils % (Manual) Seg Neutrophils # 9.7 H Seg Neutrophils # Man Lymphocytes # (Manual) Monocytes # (Manual) Eosinophils # (Manual) Nucleated RBC % Basophils # (Manual) PT INR APTT Heparin Anti-Xa Level 0.12 L ABG pH POC ABG pO2 ABG pO2 ABG HCO3 ABG O2 Saturation ABG Base Excess POC ABG pCO2 ABG Hemoglobin ABG Oxyhemoglobin ABG Sodium ABG Chloride ABG Glucose Oxyhemoglobin Sodium Potassium Chloride Carbon Dioxide BUN Creatinine Glucose POC Glucose 151 H Lactic Acid Calcium Phosphorus Magnesium AST ALT Lactate Dehydrogenase Total Bilirubin Direct Bilirubin CK-MB (CK-2) C-Reactive Protein NT-Pro-B Natriuret Pep Total Protein Albumin Arterial Blood Glucose Urine WBC (Auto) Urine Creatinine 12/08/19 12/08/19 12/08/19 03:55 05:21 06:01 WBC RBC Hgb Hct MCHC RDW MCV MCH Lymph % (Auto) [place] % (Auto) [place] # Eos # Lymph # (Auto) [place] # (Auto) Eos # (Auto) Seg Neutrophils % Seg Neuts % (Manual) Baso # (Auto) Lymphocytes % (Manual) Monocytes % (Manual) Eosinophils % (Manual) Basophils % (Manual) Seg Neutrophils # Seg Neutrophils # Man Lymphocytes # (Manual) Monocytes # (Manual) Eosinophils # (Manual) Nucleated RBC % Basophils # (Manual) PT INR APTT Heparin Anti-Xa Level 0.20 L ABG pH POC ABG pO2 ABG pO2 ABG HCO3 ABG O2 Saturation ABG Base Excess POC ABG pCO2 ABG Hemoglobin ABG Oxyhemoglobin ABG Sodium ABG Chloride ABG Glucose Oxyhemoglobin Sodium 149 H Potassium Chloride 108.0 H Carbon Dioxide BUN 28 H Creatinine 0.6 L Glucose 144 H POC Glucose 143 H Lactic Acid Calcium Phosphorus Magnesium AST 98 H ALT 145 H Lactate Dehydrogenase Total Bilirubin Direct Bilirubin CK-MB (CK-2) C-Reactive Protein NT-Pro-B Natriuret Pep Total Protein 6.0 L Albumin 2.4 L Arterial Blood Glucose Urine WBC (Auto) Urine Creatinine 12/08/19 12/08/19 12/08/19 12:08 18:11 23:53 WBC RBC Hgb Hct MCHC RDW MCV MCH Lymph % (Auto) [place] % (Auto) [place] # Eos # Lymph # (Auto) [place] # (Auto) Eos # (Auto) Seg Neutrophils % Seg Neuts % (Manual) Baso # (Auto) Lymphocytes % (Manual) Monocytes % (Manual) Eosinophils % (Manual) Basophils % (Manual) Seg Neutrophils # Seg Neutrophils # Man Lymphocytes # (Manual) Monocytes # (Manual) Eosinophils # (Manual) Nucleated RBC % Basophils # (Manual) PT INR APTT Heparin Anti-Xa Level ABG pH POC ABG pO2 ABG pO2 ABG HCO3 ABG O2 Saturation ABG Base Excess POC ABG pCO2 ABG Hemoglobin ABG Oxyhemoglobin ABG Sodium ABG Chloride ABG Glucose Oxyhemoglobin Sodium Potassium Chloride Carbon Dioxide BUN Creatinine Glucose POC Glucose 172 H 122 H 162 H Lactic Acid Calcium Phosphorus Magnesium AST ALT Lactate Dehydrogenase Total Bilirubin Direct Bilirubin CK-MB (CK-2) C-Reactive Protein NT-Pro-B Natriuret Pep Total Protein Albumin Arterial Blood Glucose Urine WBC (Auto) Urine Creatinine 12/09/19 12/09/19 12/09/19 04:03 04:03 05:53 WBC RBC Hgb 9.1 L Hct 28.9 L MCHC RDW MCV MCH Lymph % (Auto) [place] % (Auto) [place] # Eos # Lymph # (Auto) [place] # (Auto) Eos # (Auto) Seg Neutrophils % Seg Neuts % (Manual) Baso # (Auto) Lymphocytes % (Manual) Monocytes % (Manual) Eosinophils % (Manual) Basophils % (Manual) Seg Neutrophils # Seg Neutrophils # Man Lymphocytes # (Manual) Monocytes # (Manual) Eosinophils # (Manual) Nucleated RBC % Basophils # (Manual) PT INR APTT Heparin Anti-Xa Level 0.15 L ABG pH POC ABG pO2 ABG pO2 ABG HCO3 ABG O2 Saturation ABG Base Excess POC ABG pCO2 ABG Hemoglobin ABG Oxyhemoglobin ABG Sodium ABG Chloride ABG Glucose Oxyhemoglobin Sodium Potassium Chloride Carbon Dioxide BUN Creatinine Glucose POC Glucose 124 H Lactic Acid Calcium Phosphorus Magnesium AST ALT Lactate Dehydrogenase Total Bilirubin Direct Bilirubin CK-MB (CK-2) C-Reactive Protein NT-Pro-B Natriuret Pep Total Protein Albumin Arterial Blood Glucose Urine WBC (Auto) Urine Creatinine 12/09/19 12/09/19 12/10/19 09:43 12:41 00:13 WBC RBC Hgb Hct MCHC RDW MCV MCH Lymph % (Auto) [place] % (Auto) [place] # Eos # Lymph # (Auto) [place] # (Auto) Eos # (Auto) Seg Neutrophils % Seg Neuts % (Manual) Baso # (Auto) Lymphocytes % (Manual) Monocytes % (Manual) Eosinophils % (Manual) Basophils % (Manual) Seg Neutrophils # Seg Neutrophils # Man Lymphocytes # (Manual) Monocytes # (Manual) Eosinophils # (Manual) Nucleated RBC % Basophils # (Manual) PT INR APTT Heparin Anti-Xa Level ABG pH POC ABG pO2 ABG pO2 ABG HCO3 ABG O2 Saturation ABG Base Excess POC ABG pCO2 ABG Hemoglobin ABG Oxyhemoglobin ABG Sodium ABG Chloride ABG Glucose Oxyhemoglobin Sodium Potassium Chloride Carbon Dioxide BUN 25 H Creatinine 0.6 L Glucose 131 H POC Glucose 109 H 120 H Lactic Acid Calcium Phosphorus Magnesium AST ALT Lactate Dehydrogenase Total Bilirubin Direct Bilirubin CK-MB (CK-2) C-Reactive Protein NT-Pro-B Natriuret Pep Total Protein Albumin Arterial Blood Glucose Urine WBC (Auto) Urine Creatinine 12/10/19 12/10/19 12/10/19 04:14 04:14 12:00 WBC 13.3 H RBC 3.34 L Hgb 9.6 L Hct 30.4 L MCHC RDW 15.4 H MCV MCH Lymph % (Auto) [place] % (Auto) [place] # Eos # Lymph # (Auto) [place] # (Auto) Eos # (Auto) Seg Neutrophils % Seg Neuts % (Manual) 75.0 H Baso # (Auto) Lymphocytes % (Manual) 13.0 L Monocytes % (Manual) 8.0 H Eosinophils % (Manual) Basophils % (Manual) 2.0 H Seg Neutrophils # Seg Neutrophils # Man 10.0 H Lymphocytes # (Manual) Monocytes # (Manual) 1.1 H Eosinophils # (Manual) Nucleated RBC % Basophils # (Manual) 0.3 H PT INR APTT Heparin Anti-Xa Level ABG pH POC ABG pO2 ABG pO2 ABG HCO3 ABG O2 Saturation ABG Base Excess POC ABG pCO2 ABG Hemoglobin ABG Oxyhemoglobin ABG Sodium ABG Chloride ABG Glucose Oxyhemoglobin Sodium 147 H Potassium Chloride 108.3 H Carbon Dioxide BUN 21 H Creatinine 0.6 L Glucose 104 H POC Glucose 133 H Lactic Acid Calcium Phosphorus Magnesium AST ALT Lactate Dehydrogenase Total Bilirubin Direct Bilirubin CK-MB (CK-2) C-Reactive Protein NT-Pro-B Natriuret Pep Total Protein Albumin Arterial Blood Glucose Urine WBC (Auto) Urine Creatinine 12/10/19 12/10/19 12/11/19 18:44 21:20 00:08 WBC 14.9 H RBC 3.36 L Hgb 9.6 L Hct 30.5 L MCHC RDW 15.4 H MCV MCH Lymph % (Auto) [place] % (Auto) [place] # Eos # Lymph # (Auto) [place] # (Auto) Eos # (Auto) Seg Neutrophils % Seg Neuts % (Manual) Baso # (Auto) Lymphocytes % (Manual) Monocytes % (Manual) Eosinophils % (Manual) Basophils % (Manual) Seg Neutrophils # Seg Neutrophils # Man Lymphocytes # (Manual) Monocytes # (Manual) Eosinophils # (Manual) Nucleated RBC % Basophils # (Manual) PT INR APTT Heparin Anti-Xa Level ABG pH POC ABG pO2 ABG pO2 ABG HCO3 ABG O2 Saturation ABG Base Excess POC ABG pCO2 ABG Hemoglobin ABG Oxyhemoglobin ABG Sodium ABG Chloride ABG Glucose Oxyhemoglobin Sodium Potassium Chloride Carbon Dioxide BUN Creatinine Glucose POC Glucose 119 H 134 H Lactic Acid Calcium Phosphorus Magnesium AST ALT Lactate Dehydrogenase Total Bilirubin Direct Bilirubin CK-MB (CK-2) C-Reactive Protein NT-Pro-B Natriuret Pep Total Protein Albumin Arterial Blood Glucose Urine WBC (Auto) Urine Creatinine 12/11/19 12/11/19 12/11/19 03:54 07:28 08:36 WBC 11.9 H RBC 3.25 L Hgb 9.6 L Hct 29.2 L MCHC RDW 15.7 H MCV MCH Lymph % (Auto) [place] % (Auto) [place] # Eos # Lymph # (Auto) [place] # (Auto) Eos # (Auto) Seg Neutrophils % Seg Neuts % (Manual) Baso # (Auto) Lymphocytes % (Manual) Monocytes % (Manual) Eosinophils % (Manual) Basophils % (Manual) Seg Neutrophils # Seg Neutrophils # Man Lymphocytes # (Manual) Monocytes # (Manual) Eosinophils # (Manual) Nucleated RBC % Basophils # (Manual) PT INR APTT Heparin Anti-Xa Level 0.10 L 0.16 L ABG pH POC ABG pO2 ABG pO2 ABG HCO3 ABG O2 Saturation ABG Base Excess POC ABG pCO2 ABG Hemoglobin ABG Oxyhemoglobin ABG Sodium ABG Chloride ABG Glucose Oxyhemoglobin Sodium Potassium Chloride Carbon Dioxide BUN Creatinine Glucose POC Glucose Lactic Acid Calcium Phosphorus Magnesium AST ALT Lactate Dehydrogenase Total Bilirubin Direct Bilirubin CK-MB (CK-2) C-Reactive Protein NT-Pro-B Natriuret Pep Total Protein Albumin Arterial Blood Glucose Urine WBC (Auto) Urine Creatinine 12/11/19 12/11/19 12/11/19 08:36 11:45 17:15 WBC RBC Hgb Hct MCHC RDW MCV MCH Lymph % (Auto) [place] % (Auto) [place] # Eos # Lymph # (Auto) [place] # (Auto) Eos # (Auto) Seg Neutrophils % Seg Neuts % (Manual) Baso # (Auto) Lymphocytes % (Manual) Monocytes % (Manual) Eosinophils % (Manual) Basophils % (Manual) Seg Neutrophils # Seg Neutrophils # Man Lymphocytes # (Manual) Monocytes # (Manual) Eosinophils # (Manual) Nucleated RBC % Basophils # (Manual) PT INR APTT Heparin Anti-Xa Level ABG pH POC ABG pO2 ABG pO2 ABG HCO3 ABG O2 Saturation ABG Base Excess POC ABG pCO2 ABG Hemoglobin ABG Oxyhemoglobin ABG Sodium ABG Chloride ABG Glucose Oxyhemoglobin Sodium Potassium Chloride Carbon Dioxide BUN Creatinine 0.5 L Glucose 128 H POC Glucose 136 H 109 H Lactic Acid Calcium Phosphorus Magnesium AST ALT Lactate Dehydrogenase Total Bilirubin Direct Bilirubin CK-MB (CK-2) C-Reactive Protein NT-Pro-B Natriuret Pep Total Protein Albumin Arterial Blood Glucose Urine WBC (Auto) Urine Creatinine 12/12/19 12/12/19 12/12/19 00:03 05:53 05:53 WBC RBC Hgb 8.8 L Hct 27.6 L MCHC RDW MCV MCH Lymph % (Auto) [place] % (Auto) [place] # Eos # Lymph # (Auto) [place] # (Auto) Eos # (Auto) Seg Neutrophils % Seg Neuts % (Manual) Baso # (Auto) Lymphocytes % (Manual) Monocytes % (Manual) Eosinophils % (Manual) Basophils % (Manual) Seg Neutrophils # Seg Neutrophils # Man Lymphocytes # (Manual) Monocytes # (Manual) Eosinophils # (Manual) Nucleated RBC % Basophils # (Manual) PT INR APTT Heparin Anti-Xa Level 0.22 L ABG pH POC ABG pO2 ABG pO2 ABG HCO3 ABG O2 Saturation ABG Base Excess POC ABG pCO2 ABG Hemoglobin ABG Oxyhemoglobin ABG Sodium ABG Chloride ABG Glucose Oxyhemoglobin Sodium Potassium Chloride Carbon Dioxide BUN Creatinine Glucose POC Glucose 116 H Lactic Acid Calcium Phosphorus Magnesium AST ALT Lactate Dehydrogenase Total Bilirubin Direct Bilirubin CK-MB (CK-2) C-Reactive Protein NT-Pro-B Natriuret Pep Total Protein Albumin Arterial Blood Glucose Urine WBC (Auto) Urine Creatinine 12/12/19 12/12/19 12/12/19 09:38 12:18 17:44 WBC RBC Hgb Hct MCHC RDW MCV MCH Lymph % (Auto) [place] % (Auto) [place] # Eos # Lymph # (Auto) [place] # (Auto) Eos # (Auto) Seg Neutrophils % Seg Neuts % (Manual) Baso # (Auto) Lymphocytes % (Manual) Monocytes % (Manual) Eosinophils % (Manual) Basophils % (Manual) Seg Neutrophils # Seg Neutrophils # Man Lymphocytes # (Manual) Monocytes # (Manual) Eosinophils # (Manual) Nucleated RBC % Basophils # (Manual) PT INR APTT Heparin Anti-Xa Level ABG pH POC ABG pO2 ABG pO2 ABG HCO3 ABG O2 Saturation ABG Base Excess POC ABG pCO2 ABG Hemoglobin ABG Oxyhemoglobin ABG Sodium ABG Chloride ABG Glucose Oxyhemoglobin Sodium Potassium Chloride Carbon Dioxide BUN Creatinine Glucose POC Glucose 115 H 146 H 146 H Lactic Acid Calcium Phosphorus Magnesium AST ALT Lactate Dehydrogenase Total Bilirubin Direct Bilirubin CK-MB (CK-2) C-Reactive Protein NT-Pro-B Natriuret Pep Total Protein Albumin Arterial Blood Glucose Urine WBC (Auto) Urine Creatinine 12/12/19 12/13/19 12/13/19 23:33 05:32 05:32 WBC 13.1 H RBC 3.27 L Hgb 9.5 L Hct 29.3 L MCHC RDW 15.6 H MCV MCH Lymph % (Auto) [place] % (Auto) [place] # Eos # Lymph # (Auto) [place] # (Auto) Eos # (Auto) Seg Neutrophils % Seg Neuts % (Manual) 74.0 H Baso # (Auto) Lymphocytes % (Manual) 8.0 L Monocytes % (Manual) 9.0 H Eosinophils % (Manual) 5.0 H Basophils % (Manual) Seg Neutrophils # Seg Neutrophils # Man 9.7 H Lymphocytes # (Manual) 1.0 L Monocytes # (Manual) 1.2 H Eosinophils # (Manual) 0.7 H Nucleated RBC % Basophils # (Manual) PT INR APTT Heparin Anti-Xa Level 0.20 L ABG pH POC ABG pO2 ABG pO2 ABG HCO3 ABG O2 Saturation ABG Base Excess POC ABG pCO2 ABG Hemoglobin ABG Oxyhemoglobin ABG Sodium ABG Chloride ABG Glucose Oxyhemoglobin Sodium Potassium Chloride Carbon Dioxide BUN Creatinine Glucose POC Glucose 126 H Lactic Acid Calcium Phosphorus Magnesium AST ALT Lactate Dehydrogenase Total Bilirubin Direct Bilirubin CK-MB (CK-2) C-Reactive Protein NT-Pro-B Natriuret Pep Total Protein Albumin Arterial Blood Glucose Urine WBC (Auto) Urine Creatinine 12/13/19 12/13/19 12/13/19 05:32 05:46 11:57 WBC RBC Hgb Hct MCHC RDW MCV MCH Lymph % (Auto) [place] % (Auto) [place] # Eos # Lymph # (Auto) [place] # (Auto) Eos # (Auto) Seg Neutrophils % Seg Neuts % (Manual) Baso # (Auto) Lymphocytes % (Manual) Monocytes % (Manual) Eosinophils % (Manual) Basophils % (Manual) Seg Neutrophils # Seg Neutrophils # Man Lymphocytes # (Manual) Monocytes # (Manual) Eosinophils # (Manual) Nucleated RBC % Basophils # (Manual) PT INR APTT Heparin Anti-Xa Level ABG pH POC ABG pO2 ABG pO2 ABG HCO3 ABG O2 Saturation ABG Base Excess POC ABG pCO2 ABG Hemoglobin ABG Oxyhemoglobin ABG Sodium ABG Chloride ABG Glucose Oxyhemoglobin Sodium Potassium Chloride Carbon Dioxide 31 H BUN Creatinine 0.6 L Glucose 114 H POC Glucose 118 H 133 H Lactic Acid Calcium Phosphorus Magnesium AST ALT Lactate Dehydrogenase Total Bilirubin Direct Bilirubin CK-MB (CK-2) C-Reactive Protein NT-Pro-B Natriuret Pep Total Protein Albumin Arterial Blood Glucose Urine WBC (Auto) Urine Creatinine 12/13/19 12/13/19 12/14/19 17:44 23:46 05:32 WBC RBC Hgb Hct MCHC RDW MCV MCH Lymph % (Auto) [place] % (Auto) [place] # Eos # Lymph # (Auto) [place] # (Auto) Eos # (Auto) Seg Neutrophils % Seg Neuts % (Manual) Baso # (Auto) Lymphocytes % (Manual) Monocytes % (Manual) Eosinophils % (Manual) Basophils % (Manual) Seg Neutrophils # Seg Neutrophils # Man Lymphocytes # (Manual) Monocytes # (Manual) Eosinophils # (Manual) Nucleated RBC % Basophils # (Manual) PT INR APTT Heparin Anti-Xa Level ABG pH POC ABG pO2 ABG pO2 ABG HCO3 ABG O2 Saturation ABG Base Excess POC ABG pCO2 ABG Hemoglobin ABG Oxyhemoglobin ABG Sodium ABG Chloride ABG Glucose Oxyhemoglobin Sodium Potassium Chloride Carbon Dioxide BUN Creatinine Glucose POC Glucose 161 H 126 H 139 H Lactic Acid Calcium Phosphorus Magnesium AST ALT Lactate Dehydrogenase Total Bilirubin Direct Bilirubin CK-MB (CK-2) C-Reactive Protein NT-Pro-B Natriuret Pep Total Protein Albumin Arterial Blood Glucose Urine WBC (Auto) Urine Creatinine 12/14/19 12/14/19 12/14/19 06:03 06:03 09:37 WBC RBC Hgb 9.6 L Hct 30.4 L MCHC RDW MCV MCH Lymph % (Auto) [place] % (Auto) [place] # Eos # Lymph # (Auto) [place] # (Auto) Eos # (Auto) Seg Neutrophils % Seg Neuts % (Manual) Baso # (Auto) Lymphocytes % (Manual) Monocytes % (Manual) Eosinophils % (Manual) Basophils % (Manual) Seg Neutrophils # Seg Neutrophils # Man Lymphocytes # (Manual) Monocytes # (Manual) Eosinophils # (Manual) Nucleated RBC % Basophils # (Manual) PT INR APTT Heparin Anti-Xa Level 0.24 L ABG pH POC ABG pO2 ABG pO2 ABG HCO3 ABG O2 Saturation ABG Base Excess POC ABG pCO2 ABG Hemoglobin ABG Oxyhemoglobin ABG Sodium ABG Chloride ABG Glucose Oxyhemoglobin Sodium Potassium Chloride Carbon Dioxide BUN Creatinine 0.6 L Glucose 162 H POC Glucose Lactic Acid Calcium Phosphorus Magnesium AST 71 H ALT 118 H Lactate Dehydrogenase Total Bilirubin Direct Bilirubin CK-MB (CK-2) C-Reactive Protein NT-Pro-B Natriuret Pep Total Protein 6.2 L Albumin 2.3 L Arterial Blood Glucose Urine WBC (Auto) Urine Creatinine 12/14/19 12/14/19 12/15/19 12:06 18:18 00:19 WBC RBC Hgb Hct MCHC RDW MCV MCH Lymph % (Auto) [place] % (Auto) [place] # Eos # Lymph # (Auto) [place] # (Auto) Eos # (Auto) Seg Neutrophils % Seg Neuts % (Manual) Baso # (Auto) Lymphocytes % (Manual) Monocytes % (Manual) Eosinophils % (Manual) Basophils % (Manual) Seg Neutrophils # Seg Neutrophils # Man Lymphocytes # (Manual) Monocytes # (Manual) Eosinophils # (Manual) Nucleated RBC % Basophils # (Manual) PT INR APTT Heparin Anti-Xa Level ABG pH POC ABG pO2 ABG pO2 ABG HCO3 ABG O2 Saturation ABG Base Excess POC ABG pCO2 ABG Hemoglobin ABG Oxyhemoglobin ABG Sodium ABG Chloride ABG Glucose Oxyhemoglobin Sodium Potassium Chloride Carbon Dioxide BUN Creatinine Glucose POC Glucose 147 H 166 H 123 H Lactic Acid Calcium Phosphorus Magnesium AST ALT Lactate Dehydrogenase Total Bilirubin Direct Bilirubin CK-MB (CK-2) C-Reactive Protein NT-Pro-B Natriuret Pep Total Protein Albumin Arterial Blood Glucose Urine WBC (Auto) Urine Creatinine 12/15/19 12/15/19 12/15/19 05:28 05:29 05:29 WBC 14.9 H RBC 3.19 L Hgb 9.1 L Hct 28.7 L MCHC RDW 16.0 H MCV MCH Lymph % (Auto) [place] % (Auto) [place] # Eos # Lymph # (Auto) [place] # (Auto) Eos # (Auto) Seg Neutrophils % Seg Neuts % (Manual) Baso # (Auto) Lymphocytes % (Manual) Monocytes % (Manual) Eosinophils % (Manual) Basophils % (Manual) Seg Neutrophils # Seg Neutrophils # Man Lymphocytes # (Manual) Monocytes # (Manual) Eosinophils # (Manual) Nucleated RBC % Basophils # (Manual) PT INR APTT Heparin Anti-Xa Level 0.19 L ABG pH POC ABG pO2 ABG pO2 ABG HCO3 ABG O2 Saturation ABG Base Excess POC ABG pCO2 ABG Hemoglobin ABG Oxyhemoglobin ABG Sodium ABG Chloride ABG Glucose Oxyhemoglobin Sodium Potassium Chloride Carbon Dioxide BUN Creatinine 0.6 L Glucose 110 H POC Glucose Lactic Acid Calcium Phosphorus Magnesium AST ALT Lactate Dehydrogenase Total Bilirubin Direct Bilirubin CK-MB (CK-2) C-Reactive Protein NT-Pro-B Natriuret Pep Total Protein Albumin Arterial Blood Glucose Urine WBC (Auto) Urine Creatinine 12/15/19 12/15/19 12/15/19 05:53 11:50 17:26 WBC RBC Hgb Hct MCHC RDW MCV MCH Lymph % (Auto) [place] % (Auto) [place] # Eos # Lymph # (Auto) [place] # (Auto) Eos # (Auto) Seg Neutrophils % Seg Neuts % (Manual) Baso # (Auto) Lymphocytes % (Manual) Monocytes % (Manual) Eosinophils % (Manual) Basophils % (Manual) Seg Neutrophils # Seg Neutrophils # Man Lymphocytes # (Manual) Monocytes # (Manual) Eosinophils # (Manual) Nucleated RBC % Basophils # (Manual) PT INR APTT Heparin Anti-Xa Level ABG pH POC ABG pO2 ABG pO2 ABG HCO3 ABG O2 Saturation ABG Base Excess POC ABG pCO2 ABG Hemoglobin ABG Oxyhemoglobin ABG Sodium ABG Chloride ABG Glucose Oxyhemoglobin Sodium Potassium Chloride Carbon Dioxide BUN Creatinine Glucose POC Glucose 119 H 132 H 128 H Lactic Acid Calcium Phosphorus Magnesium AST ALT Lactate Dehydrogenase Total Bilirubin Direct Bilirubin CK-MB (CK-2) C-Reactive Protein NT-Pro-B Natriuret Pep Total Protein Albumin Arterial Blood Glucose Urine WBC (Auto) Urine Creatinine 12/15/19 12/16/19 12/16/19 23:11 05:30 05:46 WBC RBC Hgb 8.8 L Hct 27.9 L MCHC RDW MCV MCH Lymph % (Auto) [place] % (Auto) [place] # Eos # Lymph # (Auto) [place] # (Auto) Eos # (Auto) Seg Neutrophils % Seg Neuts % (Manual) Baso # (Auto) Lymphocytes % (Manual) Monocytes % (Manual) Eosinophils % (Manual) Basophils % (Manual) Seg Neutrophils # Seg Neutrophils # Man Lymphocytes # (Manual) Monocytes # (Manual) Eosinophils # (Manual) Nucleated RBC % Basophils # (Manual) PT INR APTT Heparin Anti-Xa Level ABG pH POC ABG pO2 ABG pO2 ABG HCO3 ABG O2 Saturation ABG Base Excess POC ABG pCO2 ABG Hemoglobin ABG Oxyhemoglobin ABG Sodium ABG Chloride ABG Glucose Oxyhemoglobin Sodium Potassium Chloride Carbon Dioxide BUN Creatinine Glucose POC Glucose 150 H 134 H Lactic Acid Calcium Phosphorus Magnesium AST ALT Lactate Dehydrogenase Total Bilirubin Direct Bilirubin CK-MB (CK-2) C-Reactive Protein NT-Pro-B Natriuret Pep Total Protein Albumin Arterial Blood Glucose Urine WBC (Auto) Urine Creatinine 12/16/19 12/16/19 12/16/19 05:46 05:46 11:44 WBC RBC Hgb Hct MCHC RDW MCV MCH Lymph % (Auto) [place] % (Auto) [place] # Eos # Lymph # (Auto) [place] # (Auto) Eos # (Auto) Seg Neutrophils % Seg Neuts % (Manual) Baso # (Auto) Lymphocytes % (Manual) Monocytes % (Manual) Eosinophils % (Manual) Basophils % (Manual) Seg Neutrophils # Seg Neutrophils # Man Lymphocytes # (Manual) Monocytes # (Manual) Eosinophils # (Manual) Nucleated RBC % Basophils # (Manual) PT INR APTT Heparin Anti-Xa Level 0.20 L ABG pH POC ABG pO2 ABG pO2 ABG HCO3 ABG O2 Saturation ABG Base Excess POC ABG pCO2 ABG Hemoglobin ABG Oxyhemoglobin ABG Sodium ABG Chloride ABG Glucose Oxyhemoglobin Sodium Potassium Chloride Carbon Dioxide 31 H BUN Creatinine 0.5 L Glucose 147 H POC Glucose 164 H Lactic Acid Calcium Phosphorus Magnesium AST ALT Lactate Dehydrogenase Total Bilirubin Direct Bilirubin CK-MB (CK-2) C-Reactive Protein NT-Pro-B Natriuret Pep Total Protein Albumin Arterial Blood Glucose Urine WBC (Auto) Urine Creatinine 12/16/19 12/16/19 12/17/19 17:17 23:49 05:30 WBC 13.9 H RBC 3.27 L Hgb 9.4 L Hct 29.2 L MCHC RDW 16.0 H MCV MCH Lymph % (Auto) [place] % (Auto) 8.8 H [place] # Eos # Lymph # (Auto) [place] # (Auto) 1.2 H Eos # (Auto) 0.5 H Seg Neutrophils % 70.5 H Seg Neuts % (Manual) Baso # (Auto) 0.2 H Lymphocytes % (Manual) Monocytes % (Manual) Eosinophils % (Manual) Basophils % (Manual) Seg Neutrophils # 9.8 H Seg Neutrophils # Man Lymphocytes # (Manual) Monocytes # (Manual) Eosinophils # (Manual) Nucleated RBC % Basophils # (Manual) PT INR APTT Heparin Anti-Xa Level ABG pH POC ABG pO2 ABG pO2 ABG HCO3 ABG O2 Saturation ABG Base Excess POC ABG pCO2 ABG Hemoglobin ABG Oxyhemoglobin ABG Sodium ABG Chloride ABG Glucose Oxyhemoglobin Sodium Potassium Chloride Carbon Dioxide BUN Creatinine Glucose POC Glucose 162 H 144 H Lactic Acid Calcium Phosphorus Magnesium AST ALT Lactate Dehydrogenase Total Bilirubin Direct Bilirubin CK-MB (CK-2) C-Reactive Protein NT-Pro-B Natriuret Pep Total Protein Albumin Arterial Blood Glucose Urine WBC (Auto) Urine Creatinine 12/17/19 12/17/19 12/17/19 05:30 06:06 11:50 WBC RBC Hgb Hct MCHC RDW MCV MCH Lymph % (Auto) [place] % (Auto) [place] # Eos # Lymph # (Auto) [place] # (Auto) Eos # (Auto) Seg Neutrophils % Seg Neuts % (Manual) Baso # (Auto) Lymphocytes % (Manual) Monocytes % (Manual) Eosinophils % (Manual) Basophils % (Manual) Seg Neutrophils # Seg Neutrophils # Man Lymphocytes # (Manual) Monocytes # (Manual) Eosinophils # (Manual) Nucleated RBC % Basophils # (Manual) PT INR APTT Heparin Anti-Xa Level ABG pH POC ABG pO2 ABG pO2 ABG HCO3 ABG O2 Saturation ABG Base Excess POC ABG pCO2 ABG Hemoglobin ABG Oxyhemoglobin ABG Sodium ABG Chloride ABG Glucose Oxyhemoglobin Sodium Potassium Chloride 97.4 L Carbon Dioxide 32 H BUN Creatinine 0.5 L Glucose 135 H POC Glucose 151 H 140 H Lactic Acid Calcium Phosphorus Magnesium AST ALT Lactate Dehydrogenase Total Bilirubin Direct Bilirubin CK-MB (CK-2) C-Reactive Protein NT-Pro-B Natriuret Pep Total Protein Albumin Arterial Blood Glucose Urine WBC (Auto) Urine Creatinine 12/17/19 12/17/19 12/18/19 17:50 23:46 05:17 WBC RBC Hgb 8.8 L Hct 28.0 L MCHC RDW MCV MCH Lymph % (Auto) [place] % (Auto) [place] # Eos # Lymph # (Auto) [place] # (Auto) Eos # (Auto) Seg Neutrophils % Seg Neuts % (Manual) Baso # (Auto) Lymphocytes % (Manual) Monocytes % (Manual) Eosinophils % (Manual) Basophils % (Manual) Seg Neutrophils # Seg Neutrophils # Man Lymphocytes # (Manual) Monocytes # (Manual) Eosinophils # (Manual) Nucleated RBC % Basophils # (Manual) PT INR APTT Heparin Anti-Xa Level ABG pH POC ABG pO2 ABG pO2 ABG HCO3 ABG O2 Saturation ABG Base Excess POC ABG pCO2 ABG Hemoglobin ABG Oxyhemoglobin ABG Sodium ABG Chloride ABG Glucose Oxyhemoglobin Sodium Potassium Chloride Carbon Dioxide BUN Creatinine Glucose POC Glucose 158 H 150 H Lactic Acid Calcium Phosphorus Magnesium AST ALT Lactate Dehydrogenase Total Bilirubin Direct Bilirubin CK-MB (CK-2) C-Reactive Protein NT-Pro-B Natriuret Pep Total Protein Albumin Arterial Blood Glucose Urine WBC (Auto) Urine Creatinine 12/18/19 12/18/19 12/18/19 05:17 05:49 11:12 WBC RBC Hgb Hct MCHC RDW MCV MCH Lymph % (Auto) [place] % (Auto) [place] # Eos # Lymph # (Auto) [place] # (Auto) Eos # (Auto) Seg Neutrophils % Seg Neuts % (Manual) Baso # (Auto) Lymphocytes % (Manual) Monocytes % (Manual) Eosinophils % (Manual) Basophils % (Manual) Seg Neutrophils # Seg Neutrophils # Man Lymphocytes # (Manual) Monocytes # (Manual) Eosinophils # (Manual) Nucleated RBC % Basophils # (Manual) PT INR APTT Heparin Anti-Xa Level 0.16 L ABG pH POC ABG pO2 ABG pO2 ABG HCO3 ABG O2 Saturation ABG Base Excess POC ABG pCO2 ABG Hemoglobin ABG Oxyhemoglobin ABG Sodium ABG Chloride ABG Glucose Oxyhemoglobin Sodium Potassium Chloride Carbon Dioxide BUN Creatinine Glucose POC Glucose 127 H 191 H Lactic Acid Calcium Phosphorus Magnesium AST ALT Lactate Dehydrogenase Total Bilirubin Direct Bilirubin CK-MB (CK-2) C-Reactive Protein NT-Pro-B Natriuret Pep Total Protein Albumin Arterial Blood Glucose Urine WBC (Auto) Urine Creatinine 12/18/19 12/18/19 12/19/19 17:03 20:16 00:08 WBC RBC Hgb Hct MCHC RDW MCV MCH Lymph % (Auto) [place] % (Auto) [place] # Eos # Lymph # (Auto) [place] # (Auto) Eos # (Auto) Seg Neutrophils % Seg Neuts % (Manual) Baso # (Auto) Lymphocytes % (Manual) Monocytes % (Manual) Eosinophils % (Manual) Basophils % (Manual) Seg Neutrophils # Seg Neutrophils # Man Lymphocytes # (Manual) Monocytes # (Manual) Eosinophils # (Manual) Nucleated RBC % Basophils # (Manual) PT INR APTT Heparin Anti-Xa Level ABG pH POC ABG pO2 ABG pO2 ABG HCO3 ABG O2 Saturation ABG Base Excess POC ABG pCO2 ABG Hemoglobin ABG Oxyhemoglobin ABG Sodium ABG Chloride ABG Glucose Oxyhemoglobin Sodium Potassium Chloride Carbon Dioxide BUN Creatinine Glucose POC Glucose 133 H 128 H 129 H Lactic Acid Calcium Phosphorus Magnesium AST ALT Lactate Dehydrogenase Total Bilirubin Direct Bilirubin CK-MB (CK-2) C-Reactive Protein NT-Pro-B Natriuret Pep Total Protein Albumin Arterial Blood Glucose Urine WBC (Auto) Urine Creatinine 12/19/19 12/19/19 12/19/19 04:45 04:45 05:35 WBC RBC Hgb Hct MCHC RDW MCV MCH Lymph % (Auto) [place] % (Auto) [place] # Eos # Lymph # (Auto) [place] # (Auto) Eos # (Auto) Seg Neutrophils % Seg Neuts % (Manual) Baso # (Auto) Lymphocytes % (Manual) Monocytes % (Manual) Eosinophils % (Manual) Basophils % (Manual) Seg Neutrophils # Seg Neutrophils # Man Lymphocytes # (Manual) Monocytes # (Manual) Eosinophils # (Manual) Nucleated RBC % Basophils # (Manual) PT INR APTT Heparin Anti-Xa Level 0.17 L ABG pH POC ABG pO2 ABG pO2 ABG HCO3 ABG O2 Saturation ABG Base Excess POC ABG pCO2 ABG Hemoglobin ABG Oxyhemoglobin ABG Sodium ABG Chloride ABG Glucose Oxyhemoglobin Sodium Potassium Chloride Carbon Dioxide BUN Creatinine Glucose POC Glucose 120 H Lactic Acid Calcium Phosphorus Magnesium AST ALT Lactate Dehydrogenase 228 H Total Bilirubin Direct Bilirubin CK-MB (CK-2) C-Reactive Protein NT-Pro-B Natriuret Pep Total Protein Albumin Arterial Blood Glucose Urine WBC (Auto) Urine Creatinine 12/19/19 12/19/19 12/19/19 09:20 11:32 11:32 WBC 14.6 H RBC 3.08 L Hgb 9.0 L Hct 26.8 L MCHC RDW 15.9 H MCV MCH Lymph % (Auto) [place] % (Auto) [place] # Eos # Lymph # (Auto) [place] # (Auto) Eos # (Auto) Seg Neutrophils % Seg Neuts % (Manual) 82.0 H Baso # (Auto) Lymphocytes % (Manual) 10.0 L Monocytes % (Manual) Eosinophils % (Manual) Basophils % (Manual) Seg Neutrophils # Seg Neutrophils # Man 12.0 H Lymphocytes # (Manual) Monocytes # (Manual) 0.9 H Eosinophils # (Manual) Nucleated RBC % 1.0 H Basophils # (Manual) PT INR APTT Heparin Anti-Xa Level ABG pH 7.451 H POC ABG pO2 ABG pO2 62.6 L ABG HCO3 33.2 H ABG O2 Saturation 93.8 L ABG Base Excess 8.3 H POC ABG pCO2 ABG Hemoglobin 8.3 L ABG Oxyhemoglobin ABG Sodium ABG Chloride ABG Glucose Oxyhemoglobin 91.9 L Sodium Potassium Chloride 95.0 L Carbon Dioxide 33 H BUN 22 H Creatinine 0.6 L Glucose 150 H POC Glucose Lactic Acid Calcium Phosphorus Magnesium AST ALT Lactate Dehydrogenase Total Bilirubin Direct Bilirubin CK-MB (CK-2) C-Reactive Protein NT-Pro-B Natriuret Pep Total Protein 6.2 L Albumin 2.4 L Arterial Blood Glucose Urine WBC (Auto) Urine Creatinine 12/19/19 12/19/19 12/20/19 11:56 18:17 00:09 WBC RBC Hgb Hct MCHC RDW MCV MCH Lymph % (Auto) [place] % (Auto) [place] # Eos # Lymph # (Auto) [place] # (Auto) Eos # (Auto) Seg Neutrophils % Seg Neuts % (Manual) Baso # (Auto) Lymphocytes % (Manual) Monocytes % (Manual) Eosinophils % (Manual) Basophils % (Manual) Seg Neutrophils # Seg Neutrophils # Man Lymphocytes # (Manual) Monocytes # (Manual) Eosinophils # (Manual) Nucleated RBC % Basophils # (Manual) PT INR APTT Heparin Anti-Xa Level ABG pH POC ABG pO2 ABG pO2 ABG HCO3 ABG O2 Saturation ABG Base Excess POC ABG pCO2 ABG Hemoglobin ABG Oxyhemoglobin ABG Sodium ABG Chloride ABG Glucose Oxyhemoglobin Sodium Potassium Chloride Carbon Dioxide BUN Creatinine Glucose POC Glucose 156 H 156 H 155 H Lactic Acid Calcium Phosphorus Magnesium AST ALT Lactate Dehydrogenase Total Bilirubin Direct Bilirubin CK-MB (CK-2) C-Reactive Protein NT-Pro-B Natriuret Pep Total Protein Albumin Arterial Blood Glucose Urine WBC (Auto) Urine Creatinine 12/20/19 12/20/19 12/20/19 05:26 06:02 18:17 WBC RBC Hgb Hct MCHC RDW MCV MCH Lymph % (Auto) [place] % (Auto) [place] # Eos # Lymph # (Auto) [place] # (Auto) Eos # (Auto) Seg Neutrophils % Seg Neuts % (Manual) Baso # (Auto) Lymphocytes % (Manual) Monocytes % (Manual) Eosinophils % (Manual) Basophils % (Manual) Seg Neutrophils # Seg Neutrophils # Man Lymphocytes # (Manual) Monocytes # (Manual) Eosinophils # (Manual) Nucleated RBC % Basophils # (Manual) PT INR APTT Heparin Anti-Xa Level 0.19 L ABG pH POC ABG pO2 ABG pO2 ABG HCO3 ABG O2 Saturation ABG Base Excess POC ABG pCO2 ABG Hemoglobin ABG Oxyhemoglobin ABG Sodium ABG Chloride ABG Glucose Oxyhemoglobin Sodium Potassium Chloride Carbon Dioxide BUN Creatinine Glucose POC Glucose 137 H 128 H Lactic Acid Calcium Phosphorus Magnesium AST ALT Lactate Dehydrogenase Total Bilirubin Direct Bilirubin CK-MB (CK-2) C-Reactive Protein NT-Pro-B Natriuret Pep Total Protein Albumin Arterial Blood Glucose Urine WBC (Auto) Urine Creatinine 12/20/19 12/21/19 12/21/19 23:34 05:31 05:31 WBC 12.7 H RBC 3.09 L Hgb 8.9 L Hct 27.4 L MCHC RDW 15.8 H MCV MCH Lymph % (Auto) 12.1 L [place] % (Auto) 7.8 H [place] # Eos # Lymph # (Auto) [place] # (Auto) 1.0 H Eos # (Auto) Seg Neutrophils % 77.1 H Seg Neuts % (Manual) Baso # (Auto) Lymphocytes % (Manual) Monocytes % (Manual) Eosinophils % (Manual) Basophils % (Manual) Seg Neutrophils # 9.8 H Seg Neutrophils # Man Lymphocytes # (Manual) Monocytes # (Manual) Eosinophils # (Manual) Nucleated RBC % Basophils # (Manual) PT INR APTT Heparin Anti-Xa Level ABG pH POC ABG pO2 ABG pO2 ABG HCO3 ABG O2 Saturation ABG Base Excess POC ABG pCO2 ABG Hemoglobin ABG Oxyhemoglobin ABG Sodium ABG Chloride ABG Glucose Oxyhemoglobin Sodium Potassium Chloride 96.9 L Carbon Dioxide 37 H BUN 27 H Creatinine 0.7 L Glucose 140 H POC Glucose 145 H Lactic Acid Calcium Phosphorus Magnesium AST ALT Lactate Dehydrogenase Total Bilirubin Direct Bilirubin CK-MB (CK-2) C-Reactive Protein NT-Pro-B Natriuret Pep Total Protein Albumin Arterial Blood Glucose Urine WBC (Auto) Urine Creatinine 12/21/19 12/21/19 12/21/19 05:38 10:13 11:51 WBC RBC Hgb Hct MCHC RDW MCV MCH Lymph % (Auto) [place] % (Auto) [place] # Eos # Lymph # (Auto) [place] # (Auto) Eos # (Auto) Seg Neutrophils % Seg Neuts % (Manual) Baso # (Auto) Lymphocytes % (Manual) Monocytes % (Manual) Eosinophils % (Manual) Basophils % (Manual) Seg Neutrophils # Seg Neutrophils # Man Lymphocytes # (Manual) Monocytes # (Manual) Eosinophils # (Manual) Nucleated RBC % Basophils # (Manual) PT INR APTT 23.9 L Heparin Anti-Xa Level < 0.10 L ABG pH POC ABG pO2 ABG pO2 ABG HCO3 ABG O2 Saturation ABG Base Excess POC ABG pCO2 ABG Hemoglobin ABG Oxyhemoglobin ABG Sodium ABG Chloride ABG Glucose Oxyhemoglobin Sodium Potassium Chloride Carbon Dioxide BUN Creatinine Glucose POC Glucose 151 H 145 H Lactic Acid Calcium Phosphorus Magnesium AST ALT Lactate Dehydrogenase Total Bilirubin Direct Bilirubin CK-MB (CK-2) C-Reactive Protein NT-Pro-B Natriuret Pep Total Protein Albumin Arterial Blood Glucose Urine WBC (Auto) Urine Creatinine 12/21/19 12/22/19 12/22/19 17:16 00:01 01:33 WBC RBC Hgb Hct MCHC RDW MCV MCH Lymph % (Auto) [place] % (Auto) [place] # Eos # Lymph # (Auto) [place] # (Auto) Eos # (Auto) Seg Neutrophils % Seg Neuts % (Manual) Baso # (Auto) Lymphocytes % (Manual) Monocytes % (Manual) Eosinophils % (Manual) Basophils % (Manual) Seg Neutrophils # Seg Neutrophils # Man Lymphocytes # (Manual) Monocytes # (Manual) Eosinophils # (Manual) Nucleated RBC % Basophils # (Manual) PT INR APTT Heparin Anti-Xa Level 0.10 L ABG pH POC ABG pO2 ABG pO2 ABG HCO3 ABG O2 Saturation ABG Base Excess POC ABG pCO2 ABG Hemoglobin ABG Oxyhemoglobin ABG Sodium ABG Chloride ABG Glucose Oxyhemoglobin Sodium Potassium Chloride Carbon Dioxide BUN Creatinine Glucose POC Glucose 167 H 179 H Lactic Acid Calcium Phosphorus Magnesium AST ALT Lactate Dehydrogenase Total Bilirubin Direct Bilirubin CK-MB (CK-2) C-Reactive Protein NT-Pro-B Natriuret Pep Total Protein Albumin Arterial Blood Glucose Urine WBC (Auto) Urine Creatinine 12/22/19 12/22/19 12/22/19 03:22 05:10 05:10 WBC 13.8 H RBC 3.20 L Hgb 8.9 L Hct 28.1 L MCHC RDW 15.9 H MCV MCH Lymph % (Auto) [place] % (Auto) [place] # Eos # Lymph # (Auto) [place] # (Auto) Eos # (Auto) Seg Neutrophils % Seg Neuts % (Manual) Baso # (Auto) Lymphocytes % (Manual) Monocytes % (Manual) Eosinophils % (Manual) Basophils % (Manual) Seg Neutrophils # Seg Neutrophils # Man Lymphocytes # (Manual) Monocytes # (Manual) Eosinophils # (Manual) Nucleated RBC % Basophils # (Manual) PT INR APTT Heparin Anti-Xa Level ABG pH POC ABG pO2 52.3 L ABG pO2 ABG HCO3 ABG O2 Saturation ABG Base Excess POC ABG pCO2 52.9 H ABG Hemoglobin 10.7 L ABG Oxyhemoglobin 84 L ABG Sodium ABG Chloride ABG Glucose Oxyhemoglobin Sodium Potassium Chloride 96.6 L Carbon Dioxide BUN 25 H Creatinine 0.7 L Glucose 129 H POC Glucose Lactic Acid Calcium Phosphorus Magnesium AST ALT Lactate Dehydrogenase Total Bilirubin Direct Bilirubin CK-MB (CK-2) C-Reactive Protein NT-Pro-B Natriuret Pep Total Protein Albumin Arterial Blood Glucose Urine WBC (Auto) Urine Creatinine 12/22/19 12/22/19 12/22/19 05:18 12:32 12:43 WBC RBC Hgb Hct MCHC RDW MCV MCH Lymph % (Auto) [place] % (Auto) [place] # Eos # Lymph # (Auto) [place] # (Auto) Eos # (Auto) Seg Neutrophils % Seg Neuts % (Manual) Baso # (Auto) Lymphocytes % (Manual) Monocytes % (Manual) Eosinophils % (Manual) Basophils % (Manual) Seg Neutrophils # Seg Neutrophils # Man Lymphocytes # (Manual) Monocytes # (Manual) Eosinophils # (Manual) Nucleated RBC % Basophils # (Manual) PT INR APTT Heparin Anti-Xa Level 0.18 L ABG pH POC ABG pO2 ABG pO2 ABG HCO3 ABG O2 Saturation ABG Base Excess POC ABG pCO2 ABG Hemoglobin ABG Oxyhemoglobin ABG Sodium ABG Chloride ABG Glucose Oxyhemoglobin Sodium Potassium Chloride Carbon Dioxide BUN Creatinine Glucose POC Glucose 131 H 208 H Lactic Acid Calcium Phosphorus Magnesium AST ALT Lactate Dehydrogenase Total Bilirubin Direct Bilirubin CK-MB (CK-2) C-Reactive Protein NT-Pro-B Natriuret Pep Total Protein Albumin Arterial Blood Glucose Urine WBC (Auto) Urine Creatinine 12/22/19 12/22/19 12/23/19 17:44 23:20 03:51 WBC 15.2 H RBC 3.43 L Hgb 9.6 L Hct 30.3 L MCHC RDW 15.9 H MCV MCH Lymph % (Auto) [place] % (Auto) [place] # Eos # Lymph # (Auto) [place] # (Auto) Eos # (Auto) Seg Neutrophils % Seg Neuts % (Manual) Baso # (Auto) Lymphocytes % (Manual) Monocytes % (Manual) Eosinophils % (Manual) Basophils % (Manual) Seg Neutrophils # Seg Neutrophils # Man Lymphocytes # (Manual) Monocytes # (Manual) Eosinophils # (Manual) Nucleated RBC % Basophils # (Manual) PT INR APTT Heparin Anti-Xa Level ABG pH POC ABG pO2 ABG pO2 ABG HCO3 ABG O2 Saturation ABG Base Excess POC ABG pCO2 ABG Hemoglobin ABG Oxyhemoglobin ABG Sodium ABG Chloride ABG Glucose Oxyhemoglobin Sodium Potassium Chloride Carbon Dioxide BUN Creatinine Glucose POC Glucose 209 H 119 H Lactic Acid Calcium Phosphorus Magnesium AST ALT Lactate Dehydrogenase Total Bilirubin Direct Bilirubin CK-MB (CK-2) C-Reactive Protein NT-Pro-B Natriuret Pep Total Protein Albumin Arterial Blood Glucose Urine WBC (Auto) Urine Creatinine 12/23/19 12/23/19 12/23/19 03:51 05:31 12:09 WBC RBC Hgb Hct MCHC RDW MCV MCH Lymph % (Auto) [place] % (Auto) [place] # Eos # Lymph # (Auto) [place] # (Auto) Eos # (Auto) Seg Neutrophils % Seg Neuts % (Manual) Baso # (Auto) Lymphocytes % (Manual) Monocytes % (Manual) Eosinophils % (Manual) Basophils % (Manual) Seg Neutrophils # Seg Neutrophils # Man Lymphocytes # (Manual) Monocytes # (Manual) Eosinophils # (Manual) Nucleated RBC % Basophils # (Manual) PT INR APTT Heparin Anti-Xa Level ABG pH POC ABG pO2 ABG pO2 ABG HCO3 ABG O2 Saturation ABG Base Excess POC ABG pCO2 ABG Hemoglobin ABG Oxyhemoglobin ABG Sodium ABG Chloride ABG Glucose Oxyhemoglobin Sodium Potassium Chloride 97.2 L Carbon Dioxide 31 H BUN 23 H Creatinine 0.6 L Glucose 153 H POC Glucose 149 H 144 H Lactic Acid Calcium Phosphorus Magnesium AST ALT Lactate Dehydrogenase Total Bilirubin Direct Bilirubin CK-MB (CK-2) C-Reactive Protein NT-Pro-B Natriuret Pep Total Protein Albumin Arterial Blood Glucose Urine WBC (Auto) Urine Creatinine 12/23/19 12/23/19 12/23/19 15:30 17:49 23:31 WBC RBC Hgb Hct MCHC RDW MCV MCH Lymph % (Auto) [place] % (Auto) [place] # Eos # Lymph # (Auto) [place] # (Auto) Eos # (Auto) Seg Neutrophils % Seg Neuts % (Manual) Baso # (Auto) Lymphocytes % (Manual) Monocytes % (Manual) Eosinophils % (Manual) Basophils % (Manual) Seg Neutrophils # Seg Neutrophils # Man Lymphocytes # (Manual) Monocytes # (Manual) Eosinophils # (Manual) Nucleated RBC % Basophils # (Manual) PT INR APTT Heparin Anti-Xa Level 0.21 L ABG pH POC ABG pO2 ABG pO2 ABG HCO3 ABG O2 Saturation ABG Base Excess POC ABG pCO2 ABG Hemoglobin ABG Oxyhemoglobin ABG Sodium ABG Chloride ABG Glucose Oxyhemoglobin Sodium Potassium Chloride Carbon Dioxide BUN Creatinine Glucose POC Glucose 192 H 151 H Lactic Acid Calcium Phosphorus Magnesium AST ALT Lactate Dehydrogenase Total Bilirubin Direct Bilirubin CK-MB (CK-2) C-Reactive Protein NT-Pro-B Natriuret Pep Total Protein Albumin Arterial Blood Glucose Urine WBC (Auto) Urine Creatinine 12/24/19 12/24/19 12/24/19 05:34 12:13 16:50 WBC RBC Hgb Hct MCHC RDW MCV MCH Lymph % (Auto) [place] % (Auto) [place] # Eos # Lymph # (Auto) [place] # (Auto) Eos # (Auto) Seg Neutrophils % Seg Neuts % (Manual) Baso # (Auto) Lymphocytes % (Manual) Monocytes % (Manual) Eosinophils % (Manual) Basophils % (Manual) Seg Neutrophils # Seg Neutrophils # Man Lymphocytes # (Manual) Monocytes # (Manual) Eosinophils # (Manual) Nucleated RBC % Basophils # (Manual) PT INR APTT Heparin Anti-Xa Level 0.16 L ABG pH POC ABG pO2 ABG pO2 ABG HCO3 ABG O2 Saturation ABG Base Excess POC ABG pCO2 ABG Hemoglobin ABG Oxyhemoglobin ABG Sodium ABG Chloride ABG Glucose Oxyhemoglobin Sodium Potassium Chloride Carbon Dioxide BUN Creatinine Glucose POC Glucose 145 H 124 H Lactic Acid Calcium Phosphorus Magnesium AST ALT Lactate Dehydrogenase Total Bilirubin Direct Bilirubin CK-MB (CK-2) C-Reactive Protein NT-Pro-B Natriuret Pep Total Protein Albumin Arterial Blood Glucose Urine WBC (Auto) Urine Creatinine 12/24/19 12/25/19 12/25/19 17:53 00:14 04:18 WBC 12.9 H RBC 3.30 L Hgb 9.1 L Hct 28.8 L MCHC RDW 16.4 H MCV MCH Lymph % (Auto) [place] % (Auto) 7.8 H [place] # Eos # Lymph # (Auto) [place] # (Auto) 1.0 H Eos # (Auto) Seg Neutrophils % 75.5 H Seg Neuts % (Manual) Baso # (Auto) Lymphocytes % (Manual) Monocytes % (Manual) Eosinophils % (Manual) Basophils % (Manual) Seg Neutrophils # 9.7 H Seg Neutrophils # Man Lymphocytes # (Manual) Monocytes # (Manual) Eosinophils # (Manual) Nucleated RBC % Basophils # (Manual) PT INR APTT Heparin Anti-Xa Level ABG pH POC ABG pO2 ABG pO2 ABG HCO3 ABG O2 Saturation ABG Base Excess POC ABG pCO2 ABG Hemoglobin ABG Oxyhemoglobin ABG Sodium ABG Chloride ABG Glucose Oxyhemoglobin Sodium Potassium Chloride Carbon Dioxide BUN Creatinine Glucose POC Glucose 164 H 148 H Lactic Acid Calcium Phosphorus Magnesium AST ALT Lactate Dehydrogenase Total Bilirubin Direct Bilirubin CK-MB (CK-2) C-Reactive Protein NT-Pro-B Natriuret Pep Total Protein Albumin Arterial Blood Glucose Urine WBC (Auto) Urine Creatinine 12/25/19 12/25/19 12/25/19 04:18 05:38 11:44 WBC RBC Hgb Hct MCHC RDW MCV MCH Lymph % (Auto) [place] % (Auto) [place] # Eos # Lymph # (Auto) [place] # (Auto) Eos # (Auto) Seg Neutrophils % Seg Neuts % (Manual) Baso # (Auto) Lymphocytes % (Manual) Monocytes % (Manual) Eosinophils % (Manual) Basophils % (Manual) Seg Neutrophils # Seg Neutrophils # Man Lymphocytes # (Manual) Monocytes # (Manual) Eosinophils # (Manual) Nucleated RBC % Basophils # (Manual) PT INR APTT Heparin Anti-Xa Level ABG pH POC ABG pO2 ABG pO2 ABG HCO3 ABG O2 Saturation ABG Base Excess POC ABG pCO2 ABG Hemoglobin ABG Oxyhemoglobin ABG Sodium ABG Chloride ABG Glucose Oxyhemoglobin Sodium Potassium Chloride Carbon Dioxide 33 H BUN 27 H Creatinine 0.6 L Glucose 132 H POC Glucose 152 H 166 H Lactic Acid Calcium Phosphorus Magnesium AST ALT Lactate Dehydrogenase Total Bilirubin Direct Bilirubin CK-MB (CK-2) C-Reactive Protein NT-Pro-B Natriuret Pep Total Protein Albumin Arterial Blood Glucose Urine WBC (Auto) Urine Creatinine 12/25/19 12/26/19 12/26/19 18:29 00:17 00:18 WBC RBC Hgb Hct MCHC RDW MCV MCH Lymph % (Auto) [place] % (Auto) [place] # Eos # Lymph # (Auto) [place] # (Auto) Eos # (Auto) Seg Neutrophils % Seg Neuts % (Manual) Baso # (Auto) Lymphocytes % (Manual) Monocytes % (Manual) Eosinophils % (Manual) Basophils % (Manual) Seg Neutrophils # Seg Neutrophils # Man Lymphocytes # (Manual) Monocytes # (Manual) Eosinophils # (Manual) Nucleated RBC % Basophils # (Manual) PT INR APTT Heparin Anti-Xa Level ABG pH POC ABG pO2 ABG pO2 ABG HCO3 ABG O2 Saturation ABG Base Excess POC ABG pCO2 ABG Hemoglobin ABG Oxyhemoglobin ABG Sodium ABG Chloride ABG Glucose Oxyhemoglobin Sodium Potassium Chloride 97.8 L Carbon Dioxide BUN 25 H Creatinine 0.6 L Glucose 140 H POC Glucose 194 H 151 H Lactic Acid Calcium Phosphorus Magnesium AST ALT Lactate Dehydrogenase Total Bilirubin Direct Bilirubin CK-MB (CK-2) C-Reactive Protein NT-Pro-B Natriuret Pep Total Protein Albumin Arterial Blood Glucose Urine WBC (Auto) Urine Creatinine 12/26/19 12/26/19 12/26/19 05:36 11:41 17:50 WBC RBC Hgb Hct MCHC RDW MCV MCH Lymph % (Auto) [place] % (Auto) [place] # Eos # Lymph # (Auto) [place] # (Auto) Eos # (Auto) Seg Neutrophils % Seg Neuts % (Manual) Baso # (Auto) Lymphocytes % (Manual) Monocytes % (Manual) Eosinophils % (Manual) Basophils % (Manual) Seg Neutrophils # Seg Neutrophils # Man Lymphocytes # (Manual) Monocytes # (Manual) Eosinophils # (Manual) Nucleated RBC % Basophils # (Manual) PT INR APTT Heparin Anti-Xa Level ABG pH POC ABG pO2 ABG pO2 ABG HCO3 ABG O2 Saturation ABG Base Excess POC ABG pCO2 ABG Hemoglobin ABG Oxyhemoglobin ABG Sodium ABG Chloride ABG Glucose Oxyhemoglobin Sodium Potassium Chloride Carbon Dioxide BUN Creatinine Glucose POC Glucose 156 H 148 H 139 H Lactic Acid Calcium Phosphorus Magnesium AST ALT Lactate Dehydrogenase Total Bilirubin Direct Bilirubin CK-MB (CK-2) C-Reactive Protein NT-Pro-B Natriuret Pep Total Protein Albumin Arterial Blood Glucose Urine WBC (Auto) Urine Creatinine 12/26/19 12/27/19 12/27/19 23:19 05:34 12:02 WBC RBC Hgb Hct MCHC RDW MCV MCH Lymph % (Auto) [place] % (Auto) [place] # Eos # Lymph # (Auto) [place] # (Auto) Eos # (Auto) Seg Neutrophils % Seg Neuts % (Manual) Baso # (Auto) Lymphocytes % (Manual) Monocytes % (Manual) Eosinophils % (Manual) Basophils % (Manual) Seg Neutrophils # Seg Neutrophils # Man Lymphocytes # (Manual) Monocytes # (Manual) Eosinophils # (Manual) Nucleated RBC % Basophils # (Manual) PT INR APTT Heparin Anti-Xa Level ABG pH POC ABG pO2 ABG pO2 ABG HCO3 ABG O2 Saturation ABG Base Excess POC ABG pCO2 ABG Hemoglobin ABG Oxyhemoglobin ABG Sodium ABG Chloride ABG Glucose Oxyhemoglobin Sodium Potassium Chloride Carbon Dioxide BUN Creatinine Glucose POC Glucose 161 H 145 H 157 H Lactic Acid Calcium Phosphorus Magnesium AST ALT Lactate Dehydrogenase Total Bilirubin Direct Bilirubin CK-MB (CK-2) C-Reactive Protein NT-Pro-B Natriuret Pep Total Protein Albumin Arterial Blood Glucose Urine WBC (Auto) Urine Creatinine 12/27/19 12/27/19 12/27/19 17:35 20:11 23:00 WBC RBC Hgb Hct MCHC RDW MCV MCH Lymph % (Auto) [place] % (Auto) [place] # Eos # Lymph # (Auto) [place] # (Auto) Eos # (Auto) Seg Neutrophils % Seg Neuts % (Manual) Baso # (Auto) Lymphocytes % (Manual) Monocytes % (Manual) Eosinophils % (Manual) Basophils % (Manual) Seg Neutrophils # Seg Neutrophils # Man Lymphocytes # (Manual) Monocytes # (Manual) Eosinophils # (Manual) Nucleated RBC % Basophils # (Manual) PT INR APTT Heparin Anti-Xa Level 0.19 L ABG pH POC ABG pO2 ABG pO2 ABG HCO3 ABG O2 Saturation ABG Base Excess POC ABG pCO2 ABG Hemoglobin ABG Oxyhemoglobin ABG Sodium ABG Chloride ABG Glucose Oxyhemoglobin Sodium Potassium Chloride Carbon Dioxide BUN Creatinine Glucose POC Glucose 158 H 155 H Lactic Acid Calcium Phosphorus Magnesium AST ALT Lactate Dehydrogenase Total Bilirubin Direct Bilirubin CK-MB (CK-2) C-Reactive Protein NT-Pro-B Natriuret Pep Total Protein Albumin Arterial Blood Glucose Urine WBC (Auto) Urine Creatinine 12/27/19 12/28/19 12/28/19 23:45 02:41 02:41 WBC 13.0 H RBC 3.48 L Hgb 9.5 L Hct 30.6 L MCHC 31 L RDW 16.6 H MCV MCH 27 L Lymph % (Auto) 13.0 L [place] % (Auto) 8.0 H [place] # Eos # Lymph # (Auto) [place] # (Auto) 1.0 H Eos # (Auto) Seg Neutrophils % 76.3 H Seg Neuts % (Manual) Baso # (Auto) Lymphocytes % (Manual) Monocytes % (Manual) Eosinophils % (Manual) Basophils % (Manual) Seg Neutrophils # 9.9 H Seg Neutrophils # Man Lymphocytes # (Manual) Monocytes # (Manual) Eosinophils # (Manual) Nucleated RBC % Basophils # (Manual) PT INR APTT Heparin Anti-Xa Level ABG pH POC ABG pO2 ABG pO2 ABG HCO3 ABG O2 Saturation ABG Base Excess POC ABG pCO2 ABG Hemoglobin ABG Oxyhemoglobin ABG Sodium ABG Chloride ABG Glucose Oxyhemoglobin Sodium Potassium Chloride Carbon Dioxide BUN 22 H Creatinine 0.6 L Glucose 101 H POC Glucose 130 H Lactic Acid Calcium Phosphorus Magnesium AST ALT Lactate Dehydrogenase Total Bilirubin Direct Bilirubin CK-MB (CK-2) C-Reactive Protein NT-Pro-B Natriuret Pep Total Protein Albumin Arterial Blood Glucose Urine WBC (Auto) Urine Creatinine 12/28/19 12/28/19 12/28/19 06:00 12:34 18:13 WBC RBC Hgb Hct MCHC RDW MCV MCH Lymph % (Auto) [place] % (Auto) [place] # Eos # Lymph # (Auto) [place] # (Auto) Eos # (Auto) Seg Neutrophils % Seg Neuts % (Manual) Baso # (Auto) Lymphocytes % (Manual) Monocytes % (Manual) Eosinophils % (Manual) Basophils % (Manual) Seg Neutrophils # Seg Neutrophils # Man Lymphocytes # (Manual) Monocytes # (Manual) Eosinophils # (Manual) Nucleated RBC % Basophils # (Manual) PT INR APTT Heparin Anti-Xa Level ABG pH POC ABG pO2 ABG pO2 ABG HCO3 ABG O2 Saturation ABG Base Excess POC ABG pCO2 ABG Hemoglobin ABG Oxyhemoglobin ABG Sodium ABG Chloride ABG Glucose Oxyhemoglobin Sodium Potassium Chloride Carbon Dioxide BUN Creatinine Glucose POC Glucose 150 H 161 H 128 H Lactic Acid Calcium Phosphorus Magnesium AST ALT Lactate Dehydrogenase Total Bilirubin Direct Bilirubin CK-MB (CK-2) C-Reactive Protein NT-Pro-B Natriuret Pep Total Protein Albumin Arterial Blood Glucose Urine WBC (Auto) Urine Creatinine 12/28/19 12/29/19 12/29/19 23:36 05:21 11:40 WBC RBC Hgb Hct MCHC RDW MCV MCH Lymph % (Auto) [place] % (Auto) [place] # Eos # Lymph # (Auto) [place] # (Auto) Eos # (Auto) Seg Neutrophils % Seg Neuts % (Manual) Baso # (Auto) Lymphocytes % (Manual) Monocytes % (Manual) Eosinophils % (Manual) Basophils % (Manual) Seg Neutrophils # Seg Neutrophils # Man Lymphocytes # (Manual) Monocytes # (Manual) Eosinophils # (Manual) Nucleated RBC % Basophils # (Manual) PT INR APTT Heparin Anti-Xa Level ABG pH POC ABG pO2 ABG pO2 ABG HCO3 ABG O2 Saturation ABG Base Excess POC ABG pCO2 ABG Hemoglobin ABG Oxyhemoglobin ABG Sodium ABG Chloride ABG Glucose Oxyhemoglobin Sodium Potassium Chloride Carbon Dioxide BUN Creatinine Glucose POC Glucose 137 H 136 H 166 H Lactic Acid Calcium Phosphorus Magnesium AST ALT Lactate Dehydrogenase Total Bilirubin Direct Bilirubin CK-MB (CK-2) C-Reactive Protein NT-Pro-B Natriuret Pep Total Protein Albumin Arterial Blood Glucose Urine WBC (Auto) Urine Creatinine 12/29/19 12/29/19 12/29/19 17:23 19:21 23:38 WBC RBC Hgb Hct MCHC RDW MCV MCH Lymph % (Auto) [place] % (Auto) [place] # Eos # Lymph # (Auto) [place] # (Auto) Eos # (Auto) Seg Neutrophils % Seg Neuts % (Manual) Baso # (Auto) Lymphocytes % (Manual) Monocytes % (Manual) Eosinophils % (Manual) Basophils % (Manual) Seg Neutrophils # Seg Neutrophils # Man Lymphocytes # (Manual) Monocytes # (Manual) Eosinophils # (Manual) Nucleated RBC % Basophils # (Manual) PT INR APTT Heparin Anti-Xa Level 0.20 L ABG pH POC ABG pO2 ABG pO2 ABG HCO3 ABG O2 Saturation ABG Base Excess POC ABG pCO2 ABG Hemoglobin ABG Oxyhemoglobin ABG Sodium ABG Chloride ABG Glucose Oxyhemoglobin Sodium Potassium Chloride Carbon Dioxide BUN Creatinine Glucose POC Glucose 144 H 141 H Lactic Acid Calcium Phosphorus Magnesium AST ALT Lactate Dehydrogenase Total Bilirubin Direct Bilirubin CK-MB (CK-2) C-Reactive Protein NT-Pro-B Natriuret Pep Total Protein Albumin Arterial Blood Glucose Urine WBC (Auto) Urine Creatinine 12/30/19 12/30/19 12/30/19 03:58 03:58 04:59 WBC RBC 3.54 L Hgb 9.8 L Hct 30.7 L MCHC RDW 16.8 H MCV MCH Lymph % (Auto) [place] % (Auto) [place] # Eos # Lymph # (Auto) [place] # (Auto) Eos # (Auto) Seg Neutrophils % Seg Neuts % (Manual) Baso # (Auto) Lymphocytes % (Manual) Monocytes % (Manual) Eosinophils % (Manual) Basophils % (Manual) Seg Neutrophils # Seg Neutrophils # Man Lymphocytes # (Manual) Monocytes # (Manual) Eosinophils # (Manual) Nucleated RBC % Basophils # (Manual) PT INR APTT Heparin Anti-Xa Level ABG pH POC ABG pO2 ABG pO2 ABG HCO3 29.8 H ABG O2 Saturation ABG Base Excess 4.8 H POC ABG pCO2 ABG Hemoglobin 11.2 L ABG Oxyhemoglobin ABG Sodium ABG Chloride ABG Glucose Oxyhemoglobin 93.8 L Sodium Potassium Chloride 97.8 L Carbon Dioxide BUN 26 H Creatinine Glucose 168 H POC Glucose Lactic Acid Calcium Phosphorus Magnesium AST ALT Lactate Dehydrogenase Total Bilirubin Direct Bilirubin CK-MB (CK-2) C-Reactive Protein NT-Pro-B Natriuret Pep Total Protein Albumin Arterial Blood Glucose Urine WBC (Auto) Urine Creatinine 12/30/19 12/30/19 12/30/19 05:45 11:34 17:28 WBC RBC Hgb Hct MCHC RDW MCV MCH Lymph % (Auto) [place] % (Auto) [place] # Eos # Lymph # (Auto) [place] # (Auto) Eos # (Auto) Seg Neutrophils % Seg Neuts % (Manual) Baso # (Auto) Lymphocytes % (Manual) Monocytes % (Manual) Eosinophils % (Manual) Basophils % (Manual) Seg Neutrophils # Seg Neutrophils # Man Lymphocytes # (Manual) Monocytes # (Manual) Eosinophils # (Manual) Nucleated RBC % Basophils # (Manual) PT INR APTT Heparin Anti-Xa Level ABG pH POC ABG pO2 ABG pO2 ABG HCO3 ABG O2 Saturation ABG Base Excess POC ABG pCO2 ABG Hemoglobin ABG Oxyhemoglobin ABG Sodium ABG Chloride ABG Glucose Oxyhemoglobin Sodium Potassium Chloride Carbon Dioxide BUN Creatinine Glucose POC Glucose 163 H 180 H 150 H Lactic Acid Calcium Phosphorus Magnesium AST ALT Lactate Dehydrogenase Total Bilirubin Direct Bilirubin CK-MB (CK-2) C-Reactive Protein NT-Pro-B Natriuret Pep Total Protein Albumin Arterial Blood Glucose Urine WBC (Auto) Urine Creatinine 12/30/19 12/31/19 12/31/19 23:43 04:55 05:07 WBC RBC Hgb Hct MCHC RDW MCV MCH Lymph % (Auto) [place] % (Auto) [place] # Eos # Lymph # (Auto) [place] # (Auto) Eos # (Auto) Seg Neutrophils % Seg Neuts % (Manual) Baso # (Auto) Lymphocytes % (Manual) Monocytes % (Manual) Eosinophils % (Manual) Basophils % (Manual) Seg Neutrophils # Seg Neutrophils # Man Lymphocytes # (Manual) Monocytes # (Manual) Eosinophils # (Manual) Nucleated RBC % Basophils # (Manual) PT INR APTT Heparin Anti-Xa Level ABG pH POC ABG pO2 ABG pO2 ABG HCO3 ABG O2 Saturation ABG Base Excess POC ABG pCO2 ABG Hemoglobin ABG Oxyhemoglobin ABG Sodium ABG Chloride ABG Glucose Oxyhemoglobin Sodium Potassium 5.6 H D Chloride Carbon Dioxide BUN 33 H Creatinine Glucose 131 H POC Glucose 142 H 134 H Lactic Acid Calcium Phosphorus Magnesium AST ALT Lactate Dehydrogenase Total Bilirubin Direct Bilirubin CK-MB (CK-2) C-Reactive Protein NT-Pro-B Natriuret Pep Total Protein Albumin Arterial Blood Glucose Urine WBC (Auto) Urine Creatinine 12/31/19 12/31/19 12/31/19 11:30 17:19 17:36 WBC RBC Hgb Hct MCHC RDW MCV MCH Lymph % (Auto) [place] % (Auto) [place] # Eos # Lymph # (Auto) [place] # (Auto) Eos # (Auto) Seg Neutrophils % Seg Neuts % (Manual) Baso # (Auto) Lymphocytes % (Manual) Monocytes % (Manual) Eosinophils % (Manual) Basophils % (Manual) Seg Neutrophils # Seg Neutrophils # Man Lymphocytes # (Manual) Monocytes # (Manual) Eosinophils # (Manual) Nucleated RBC % Basophils # (Manual) PT INR APTT Heparin Anti-Xa Level ABG pH POC ABG pO2 ABG pO2 ABG HCO3 ABG O2 Saturation ABG Base Excess POC ABG pCO2 ABG Hemoglobin ABG Oxyhemoglobin ABG Sodium ABG Chloride ABG Glucose Oxyhemoglobin Sodium Potassium Chloride Carbon Dioxide BUN 35 H Creatinine Glucose 156 H POC Glucose 158 H 181 H Lactic Acid Calcium Phosphorus Magnesium AST ALT Lactate Dehydrogenase Total Bilirubin Direct Bilirubin CK-MB (CK-2) C-Reactive Protein NT-Pro-B Natriuret Pep Total Protein Albumin Arterial Blood Glucose Urine WBC (Auto) Urine Creatinine 12/31/19 12/31/19 12/31/19 18:16 19:41 21:53 WBC RBC Hgb Hct MCHC RDW MCV MCH Lymph % (Auto) [place] % (Auto) [place] # Eos # Lymph # (Auto) [place] # (Auto) Eos # (Auto) Seg Neutrophils % Seg Neuts % (Manual) Baso # (Auto) Lymphocytes % (Manual) Monocytes % (Manual) Eosinophils % (Manual) Basophils % (Manual) Seg Neutrophils # Seg Neutrophils # Man Lymphocytes # (Manual) Monocytes # (Manual) Eosinophils # (Manual) Nucleated RBC % Basophils # (Manual) PT INR APTT Heparin Anti-Xa Level 0.20 L ABG pH POC ABG pO2 ABG pO2 ABG HCO3 ABG O2 Saturation ABG Base Excess POC ABG pCO2 ABG Hemoglobin ABG Oxyhemoglobin ABG Sodium ABG Chloride ABG Glucose Oxyhemoglobin Sodium Potassium Chloride Carbon Dioxide BUN 34 H Creatinine Glucose 169 H POC Glucose 141 H Lactic Acid Calcium Phosphorus Magnesium AST ALT Lactate Dehydrogenase Total Bilirubin Direct Bilirubin CK-MB (CK-2) C-Reactive Protein NT-Pro-B Natriuret Pep Total Protein Albumin Arterial Blood Glucose Urine WBC (Auto) Urine Creatinine 12/31/19 01/01/20 01/01/20 23:51 05:17 10:40 WBC RBC Hgb Hct MCHC RDW MCV MCH Lymph % (Auto) [place] % (Auto) [place] # Eos # Lymph # (Auto) [place] # (Auto) Eos # (Auto) Seg Neutrophils % Seg Neuts % (Manual) Baso # (Auto) Lymphocytes % (Manual) Monocytes % (Manual) Eosinophils % (Manual) Basophils % (Manual) Seg Neutrophils # Seg Neutrophils # Man Lymphocytes # (Manual) Monocytes # (Manual) Eosinophils # (Manual) Nucleated RBC % Basophils # (Manual) PT INR APTT Heparin Anti-Xa Level ABG pH POC ABG pO2 ABG pO2 ABG HCO3 ABG O2 Saturation ABG Base Excess POC ABG pCO2 ABG Hemoglobin ABG Oxyhemoglobin ABG Sodium ABG Chloride ABG Glucose Oxyhemoglobin Sodium Potassium Chloride Carbon Dioxide BUN 31 H Creatinine 0.7 L Glucose 137 H POC Glucose 131 H 155 H Lactic Acid Calcium Phosphorus Magnesium AST 73 H ALT 97 H Lactate Dehydrogenase Total Bilirubin Direct Bilirubin CK-MB (CK-2) C-Reactive Protein NT-Pro-B Natriuret Pep 3866 H Total Protein Albumin 2.8 L Arterial Blood Glucose Urine WBC (Auto) Urine Creatinine 01/01/20 01/01/20 01/01/20 12:26 15:33 17:53 WBC 14.3 H RBC 3.35 L Hgb 9.1 L Hct 28.8 L MCHC RDW 17.0 H MCV MCH 27 L Lymph % (Auto) 7.0 L [place] % (Auto) 7.6 H [place] # Eos # Lymph # (Auto) 1.0 L [place] # (Auto) 1.1 H Eos # (Auto) Seg Neutrophils % 83.3 H Seg Neuts % (Manual) Baso # (Auto) Lymphocytes % (Manual) Monocytes % (Manual) Eosinophils % (Manual) Basophils % (Manual) Seg Neutrophils # 12.0 H Seg Neutrophils # Man Lymphocytes # (Manual) Monocytes # (Manual) Eosinophils # (Manual) Nucleated RBC % Basophils # (Manual) PT INR APTT Heparin Anti-Xa Level ABG pH POC ABG pO2 ABG pO2 ABG HCO3 ABG O2 Saturation ABG Base Excess POC ABG pCO2 ABG Hemoglobin ABG Oxyhemoglobin ABG Sodium ABG Chloride ABG Glucose Oxyhemoglobin Sodium Potassium Chloride Carbon Dioxide BUN Creatinine Glucose POC Glucose 128 H 128 H Lactic Acid Calcium Phosphorus Magnesium AST ALT Lactate Dehydrogenase Total Bilirubin Direct Bilirubin CK-MB (CK-2) C-Reactive Protein NT-Pro-B Natriuret Pep Total Protein Albumin Arterial Blood Glucose Urine WBC (Auto) Urine Creatinine 01/01/20 01/02/20 01/02/20 23:04 05:39 07:00 WBC RBC Hgb Hct MCHC RDW MCV MCH Lymph % (Auto) [place] % (Auto) [place] # Eos # Lymph # (Auto) [place] # (Auto) Eos # (Auto) Seg Neutrophils % Seg Neuts % (Manual) Baso # (Auto) Lymphocytes % (Manual) Monocytes % (Manual) Eosinophils % (Manual) Basophils % (Manual) Seg Neutrophils # Seg Neutrophils # Man Lymphocytes # (Manual) Monocytes # (Manual) Eosinophils # (Manual) Nucleated RBC % Basophils # (Manual) PT INR APTT Heparin Anti-Xa Level 0.13 L ABG pH POC ABG pO2 ABG pO2 ABG HCO3 ABG O2 Saturation ABG Base Excess POC ABG pCO2 ABG Hemoglobin ABG Oxyhemoglobin ABG Sodium ABG Chloride ABG Glucose Oxyhemoglobin Sodium Potassium Chloride Carbon Dioxide BUN Creatinine Glucose POC Glucose 120 H 169 H Lactic Acid Calcium Phosphorus Magnesium AST ALT Lactate Dehydrogenase Total Bilirubin Direct Bilirubin CK-MB (CK-2) C-Reactive Protein NT-Pro-B Natriuret Pep Total Protein Albumin Arterial Blood Glucose Urine WBC (Auto) Urine Creatinine 01/02/20 01/02/20 01/02/20 12:15 14:06 17:58 WBC RBC Hgb Hct MCHC RDW MCV MCH Lymph % (Auto) [place] % (Auto) [place] # Eos # Lymph # (Auto) [place] # (Auto) Eos # (Auto) Seg Neutrophils % Seg Neuts % (Manual) Baso # (Auto) Lymphocytes % (Manual) Monocytes % (Manual) Eosinophils % (Manual) Basophils % (Manual) Seg Neutrophils # Seg Neutrophils # Man Lymphocytes # (Manual) Monocytes # (Manual) Eosinophils # (Manual) Nucleated RBC % Basophils # (Manual) PT INR APTT Heparin Anti-Xa Level < 0.10 L ABG pH POC ABG pO2 ABG pO2 ABG HCO3 ABG O2 Saturation ABG Base Excess POC ABG pCO2 ABG Hemoglobin ABG Oxyhemoglobin ABG Sodium ABG Chloride ABG Glucose Oxyhemoglobin Sodium Potassium Chloride Carbon Dioxide BUN Creatinine Glucose POC Glucose 190 H 198 H Lactic Acid Calcium Phosphorus Magnesium AST ALT Lactate Dehydrogenase Total Bilirubin Direct Bilirubin CK-MB (CK-2) C-Reactive Protein NT-Pro-B Natriuret Pep Total Protein Albumin Arterial Blood Glucose Urine WBC (Auto) Urine Creatinine 01/02/20 01/02/20 01/03/20 21:43 23:33 05:42 WBC RBC Hgb Hct MCHC RDW MCV MCH Lymph % (Auto) [place] % (Auto) [place] # Eos # Lymph # (Auto) [place] # (Auto) Eos # (Auto) Seg Neutrophils % Seg Neuts % (Manual) Baso # (Auto) Lymphocytes % (Manual) Monocytes % (Manual) Eosinophils % (Manual) Basophils % (Manual) Seg Neutrophils # Seg Neutrophils # Man Lymphocytes # (Manual) Monocytes # (Manual) Eosinophils # (Manual) Nucleated RBC % Basophils # (Manual) PT INR APTT Heparin Anti-Xa Level 0.10 L ABG pH POC ABG pO2 ABG pO2 ABG HCO3 ABG O2 Saturation ABG Base Excess POC ABG pCO2 ABG Hemoglobin ABG Oxyhemoglobin ABG Sodium ABG Chloride ABG Glucose Oxyhemoglobin Sodium Potassium Chloride Carbon Dioxide BUN Creatinine Glucose POC Glucose 180 H 163 H Lactic Acid Calcium Phosphorus Magnesium AST ALT Lactate Dehydrogenase Total Bilirubin Direct Bilirubin CK-MB (CK-2) C-Reactive Protein NT-Pro-B Natriuret Pep Total Protein Albumin Arterial Blood Glucose Urine WBC (Auto) Urine Creatinine 01/03/20 01/03/20 01/03/20 06:50 07:25 07:45 WBC 12.1 H RBC 3.35 L Hgb 9.0 L Hct 28.9 L MCHC 31 L RDW 16.6 H MCV MCH 27 L Lymph % (Auto) 13.0 L [place] % (Auto) 8.6 H [place] # Eos # Lymph # (Auto) [place] # (Auto) 1.0 H Eos # (Auto) Seg Neutrophils % 75.9 H Seg Neuts % (Manual) Baso # (Auto) Lymphocytes % (Manual) Monocytes % (Manual) Eosinophils % (Manual) Basophils % (Manual) Seg Neutrophils # 9.2 H Seg Neutrophils # Man Lymphocytes # (Manual) Monocytes # (Manual) Eosinophils # (Manual) Nucleated RBC % Basophils # (Manual) PT INR APTT Heparin Anti-Xa Level 0.29 L ABG pH POC ABG pO2 ABG pO2 ABG HCO3 ABG O2 Saturation ABG Base Excess POC ABG pCO2 ABG Hemoglobin ABG Oxyhemoglobin ABG Sodium ABG Chloride ABG Glucose Oxyhemoglobin Sodium Potassium 3.3 L D Chloride Carbon Dioxide 35 H D BUN 23 H Creatinine 0.6 L Glucose 149 H POC Glucose Lactic Acid Calcium Phosphorus Magnesium AST ALT 88 H Lactate Dehydrogenase Total Bilirubin Direct Bilirubin CK-MB (CK-2) C-Reactive Protein NT-Pro-B Natriuret Pep Total Protein 6.2 L Albumin 2.9 L Arterial Blood Glucose Urine WBC (Auto) Urine Creatinine 01/03/20 01/03/20 01/03/20 12:05 17:42 18:30 WBC RBC Hgb Hct MCHC RDW MCV MCH Lymph % (Auto) [place] % (Auto) [place] # Eos # Lymph # (Auto) [place] # (Auto) Eos # (Auto) Seg Neutrophils % Seg Neuts % (Manual) Baso # (Auto) Lymphocytes % (Manual) Monocytes % (Manual) Eosinophils % (Manual) Basophils % (Manual) Seg Neutrophils # Seg Neutrophils # Man Lymphocytes # (Manual) Monocytes # (Manual) Eosinophils # (Manual) Nucleated RBC % Basophils # (Manual) PT INR APTT Heparin Anti-Xa Level ABG pH POC ABG pO2 ABG pO2 70.7 L ABG HCO3 36.1 H ABG O2 Saturation 94.4 L ABG Base Excess 10.0 H POC ABG pCO2 ABG Hemoglobin 9.7 L ABG Oxyhemoglobin ABG Sodium ABG Chloride ABG Glucose Oxyhemoglobin 91.8 L Sodium Potassium Chloride Carbon Dioxide BUN Creatinine Glucose POC Glucose 128 H 132 H Lactic Acid Calcium Phosphorus Magnesium AST ALT Lactate Dehydrogenase Total Bilirubin Direct Bilirubin CK-MB (CK-2) C-Reactive Protein NT-Pro-B Natriuret Pep Total Protein Albumin Arterial Blood Glucose Urine WBC (Auto) Urine Creatinine 01/04/20 01/04/20 01/04/20 00:10 04:26 05:23 WBC RBC Hgb Hct MCHC RDW MCV MCH Lymph % (Auto) [place] % (Auto) [place] # Eos # Lymph # (Auto) [place] # (Auto) Eos # (Auto) Seg Neutrophils % Seg Neuts % (Manual) Baso # (Auto) Lymphocytes % (Manual) Monocytes % (Manual) Eosinophils % (Manual) Basophils % (Manual) Seg Neutrophils # Seg Neutrophils # Man Lymphocytes # (Manual) Monocytes # (Manual) Eosinophils # (Manual) Nucleated RBC % Basophils # (Manual) PT INR APTT Heparin Anti-Xa Level 0.16 L ABG pH POC ABG pO2 ABG pO2 ABG HCO3 ABG O2 Saturation ABG Base Excess POC ABG pCO2 ABG Hemoglobin ABG Oxyhemoglobin ABG Sodium ABG Chloride ABG Glucose Oxyhemoglobin Sodium Potassium Chloride Carbon Dioxide BUN Creatinine Glucose POC Glucose 121 H 119 H Lactic Acid Calcium Phosphorus Magnesium AST ALT Lactate Dehydrogenase Total Bilirubin Direct Bilirubin CK-MB (CK-2) C-Reactive Protein NT-Pro-B Natriuret Pep Total Protein Albumin Arterial Blood Glucose Urine WBC (Auto) Urine Creatinine 01/04/20 01/04/20 01/04/20 09:50 09:50 12:18 WBC 15.4 H RBC 3.30 L Hgb 8.7 L Hct 28.2 L MCHC 31 L RDW 17.0 H MCV MCH 26 L Lymph % (Auto) [place] % (Auto) 7.6 H [place] # Eos # Lymph # (Auto) [place] # (Auto) 1.2 H Eos # (Auto) Seg Neutrophils % 75.4 H Seg Neuts % (Manual) Baso # (Auto) Lymphocytes % (Manual) Monocytes % (Manual) Eosinophils % (Manual) Basophils % (Manual) Seg Neutrophils # 11.6 H Seg Neutrophils # Man Lymphocytes # (Manual) Monocytes # (Manual) Eosinophils # (Manual) Nucleated RBC % Basophils # (Manual) PT INR APTT Heparin Anti-Xa Level ABG pH POC ABG pO2 ABG pO2 ABG HCO3 ABG O2 Saturation ABG Base Excess POC ABG pCO2 ABG Hemoglobin ABG Oxyhemoglobin ABG Sodium ABG Chloride ABG Glucose Oxyhemoglobin Sodium 148 H Potassium 3.5 L Chloride Carbon Dioxide 32 H BUN Creatinine 0.6 L Glucose 114 H POC Glucose 111 H Lactic Acid Calcium Phosphorus Magnesium AST ALT 59 H Lactate Dehydrogenase Total Bilirubin Direct Bilirubin CK-MB (CK-2) C-Reactive Protein NT-Pro-B Natriuret Pep Total Protein Albumin 2.6 L Arterial Blood Glucose Urine WBC (Auto) Urine Creatinine 01/05/20 01/05/20 01/05/20 04:05 04:05 05:19 WBC 11.7 H RBC 3.50 L Hgb 9.3 L Hct 29.9 L MCHC 31 L RDW 16.6 H MCV MCH 27 L Lymph % (Auto) 13.1 L [place] % (Auto) 9.7 H [place] # Eos # Lymph # (Auto) [place] # (Auto) 1.1 H Eos # (Auto) Seg Neutrophils % 74.0 H Seg Neuts % (Manual) Baso # (Auto) Lymphocytes % (Manual) Monocytes % (Manual) Eosinophils % (Manual) Basophils % (Manual) Seg Neutrophils # 8.6 H Seg Neutrophils # Man Lymphocytes # (Manual) Monocytes # (Manual) Eosinophils # (Manual) Nucleated RBC % Basophils # (Manual) PT INR APTT Heparin Anti-Xa Level ABG pH POC ABG pO2 ABG pO2 ABG HCO3 ABG O2 Saturation ABG Base Excess POC ABG pCO2 ABG Hemoglobin ABG Oxyhemoglobin ABG Sodium ABG Chloride ABG Glucose Oxyhemoglobin Sodium 151 H Potassium Chloride Carbon Dioxide 34 H BUN Creatinine 0.7 L Glucose POC Glucose 112 H Lactic Acid Calcium Phosphorus Magnesium AST ALT 59 H Lactate Dehydrogenase Total Bilirubin Direct Bilirubin CK-MB (CK-2) C-Reactive Protein NT-Pro-B Natriuret Pep Total Protein 5.8 L Albumin 2.6 L Arterial Blood Glucose Urine WBC (Auto) Urine Creatinine 01/05/20 01/06/20 01/06/20 16:04 00:23 04:44 WBC RBC 3.36 L Hgb 8.9 L Hct 28.7 L MCHC 31 L RDW 16.9 H MCV MCH 26 L Lymph % (Auto) [place] % (Auto) 9.4 H [place] # Eos # Lymph # (Auto) [place] # (Auto) Eos # (Auto) Seg Neutrophils % Seg Neuts % (Manual) Baso # (Auto) Lymphocytes % (Manual) Monocytes % (Manual) Eosinophils % (Manual) Basophils % (Manual) Seg Neutrophils # Seg Neutrophils # Man Lymphocytes # (Manual) Monocytes # (Manual) Eosinophils # (Manual) Nucleated RBC % Basophils # (Manual) PT INR APTT Heparin Anti-Xa Level ABG pH POC ABG pO2 ABG pO2 ABG HCO3 ABG O2 Saturation ABG Base Excess POC ABG pCO2 ABG Hemoglobin ABG Oxyhemoglobin ABG Sodium ABG Chloride ABG Glucose Oxyhemoglobin Sodium 151 H Potassium 3.2 L Chloride Carbon Dioxide 34 H BUN Creatinine 0.6 L Glucose POC Glucose 107 H Lactic Acid Calcium Phosphorus Magnesium AST ALT Lactate Dehydrogenase Total Bilirubin Direct Bilirubin CK-MB (CK-2) C-Reactive Protein NT-Pro-B Natriuret Pep Total Protein Albumin Arterial Blood Glucose Urine WBC (Auto) Urine Creatinine 01/06/20 01/06/20 01/06/20 04:44 05:33 12:04 WBC RBC Hgb Hct MCHC RDW MCV MCH Lymph % (Auto) [place] % (Auto) [place] # Eos # Lymph # (Auto) [place] # (Auto) Eos # (Auto) Seg Neutrophils % Seg Neuts % (Manual) Baso # (Auto) Lymphocytes % (Manual) Monocytes % (Manual) Eosinophils % (Manual) Basophils % (Manual) Seg Neutrophils # Seg Neutrophils # Man Lymphocytes # (Manual) Monocytes # (Manual) Eosinophils # (Manual) Nucleated RBC % Basophils # (Manual) PT INR APTT Heparin Anti-Xa Level ABG pH POC ABG pO2 ABG pO2 ABG HCO3 ABG O2 Saturation ABG Base Excess POC ABG pCO2 ABG Hemoglobin ABG Oxyhemoglobin ABG Sodium ABG Chloride ABG Glucose Oxyhemoglobin Sodium 151 H Potassium 3.4 L Chloride Carbon Dioxide 33 H BUN Creatinine 0.6 L Glucose 118 H POC Glucose 118 H 123 H Lactic Acid Calcium Phosphorus Magnesium AST ALT Lactate Dehydrogenase Total Bilirubin Direct Bilirubin CK-MB (CK-2) C-Reactive Protein NT-Pro-B Natriuret Pep Total Protein 6.2 L Albumin 2.6 L Arterial Blood Glucose Urine WBC (Auto) Urine Creatinine 01/06/20 01/07/20 01/07/20 17:54 00:06 04:10 WBC RBC 3.42 L Hgb 8.9 L Hct 29.0 L MCHC 31 L RDW 17.1 H MCV MCH 26 L Lymph % (Auto) [place] % (Auto) 8.4 H [place] # Eos # Lymph # (Auto) [place] # (Auto) Eos # (Auto) Seg Neutrophils % Seg Neuts % (Manual) Baso # (Auto) Lymphocytes % (Manual) Monocytes % (Manual) Eosinophils % (Manual) Basophils % (Manual) Seg Neutrophils # Seg Neutrophils # Man Lymphocytes # (Manual) Monocytes # (Manual) Eosinophils # (Manual) Nucleated RBC % Basophils # (Manual) PT INR APTT Heparin Anti-Xa Level ABG pH POC ABG pO2 ABG pO2 ABG HCO3 ABG O2 Saturation ABG Base Excess POC ABG pCO2 ABG Hemoglobin ABG Oxyhemoglobin ABG Sodium ABG Chloride ABG Glucose Oxyhemoglobin Sodium Potassium Chloride Carbon Dioxide BUN Creatinine Glucose POC Glucose 112 H 126 H Lactic Acid Calcium Phosphorus Magnesium AST ALT Lactate Dehydrogenase Total Bilirubin Direct Bilirubin CK-MB (CK-2) C-Reactive Protein NT-Pro-B Natriuret Pep Total Protein Albumin Arterial Blood Glucose Urine WBC (Auto) Urine Creatinine 01/07/20 01/07/20 01/07/20 04:10 05:59 12:27 WBC RBC Hgb Hct MCHC RDW MCV MCH Lymph % (Auto) [place] % (Auto) [place] # Eos # Lymph # (Auto) [place] # (Auto) Eos # (Auto) Seg Neutrophils % Seg Neuts % (Manual) Baso # (Auto) Lymphocytes % (Manual) Monocytes % (Manual) Eosinophils % (Manual) Basophils % (Manual) Seg Neutrophils # Seg Neutrophils # Man Lymphocytes # (Manual) Monocytes # (Manual) Eosinophils # (Manual) Nucleated RBC % Basophils # (Manual) PT INR APTT Heparin Anti-Xa Level ABG pH POC ABG pO2 ABG pO2 ABG HCO3 ABG O2 Saturation ABG Base Excess POC ABG pCO2 ABG Hemoglobin ABG Oxyhemoglobin ABG Sodium ABG Chloride ABG Glucose Oxyhemoglobin Sodium 153 H Potassium 3.5 L Chloride Carbon Dioxide 34 H BUN Creatinine 0.6 L Glucose 121 H POC Glucose 121 H 126 H Lactic Acid Calcium Phosphorus Magnesium AST ALT Lactate Dehydrogenase Total Bilirubin Direct Bilirubin CK-MB (CK-2) C-Reactive Protein NT-Pro-B Natriuret Pep Total Protein 5.9 L Albumin 2.4 L Arterial Blood Glucose Urine WBC (Auto) Urine Creatinine 01/07/20 01/08/20 01/08/20 18:12 00:03 05:41 WBC RBC Hgb Hct MCHC RDW MCV MCH Lymph % (Auto) [place] % (Auto) [place] # Eos # Lymph # (Auto) [place] # (Auto) Eos # (Auto) Seg Neutrophils % Seg Neuts % (Manual) Baso # (Auto) Lymphocytes % (Manual) Monocytes % (Manual) Eosinophils % (Manual) Basophils % (Manual) Seg Neutrophils # Seg Neutrophils # Man Lymphocytes # (Manual) Monocytes # (Manual) Eosinophils # (Manual) Nucleated RBC % Basophils # (Manual) PT INR APTT Heparin Anti-Xa Level ABG pH POC ABG pO2 ABG pO2 ABG HCO3 ABG O2 Saturation ABG Base Excess POC ABG pCO2 ABG Hemoglobin ABG Oxyhemoglobin ABG Sodium ABG Chloride ABG Glucose Oxyhemoglobin Sodium Potassium Chloride Carbon Dioxide BUN Creatinine Glucose POC Glucose 124 H 130 H 138 H Lactic Acid Calcium Phosphorus Magnesium AST ALT Lactate Dehydrogenase Total Bilirubin Direct Bilirubin CK-MB (CK-2) C-Reactive Protein NT-Pro-B Natriuret Pep Total Protein Albumin Arterial Blood Glucose Urine WBC (Auto) Urine Creatinine 01/08/20 01/08/20 01/08/20 09:28 11:42 18:21 WBC RBC Hgb Hct MCHC RDW MCV MCH Lymph % (Auto) [place] % (Auto) [place] # Eos # Lymph # (Auto) [place] # (Auto) Eos # (Auto) Seg Neutrophils % Seg Neuts % (Manual) Baso # (Auto) Lymphocytes % (Manual) Monocytes % (Manual) Eosinophils % (Manual) Basophils % (Manual) Seg Neutrophils # Seg Neutrophils # Man Lymphocytes # (Manual) Monocytes # (Manual) Eosinophils # (Manual) Nucleated RBC % Basophils # (Manual) PT INR APTT Heparin Anti-Xa Level ABG pH POC ABG pO2 ABG pO2 ABG HCO3 ABG O2 Saturation ABG Base Excess POC ABG pCO2 ABG Hemoglobin ABG Oxyhemoglobin ABG Sodium ABG Chloride ABG Glucose Oxyhemoglobin Sodium Potassium Chloride Carbon Dioxide BUN Creatinine Glucose POC Glucose 181 H 150 H 129 H Lactic Acid Calcium Phosphorus Magnesium AST ALT Lactate Dehydrogenase Total Bilirubin Direct Bilirubin CK-MB (CK-2) C-Reactive Protein NT-Pro-B Natriuret Pep Total Protein Albumin Arterial Blood Glucose Urine WBC (Auto) Urine Creatinine 01/08/20 01/08/20 01/09/20 19:25 23:55 04:11 WBC RBC 3.43 L Hgb 8.9 L Hct 28.7 L MCHC 31 L RDW 17.6 H MCV MCH 26 L Lymph % (Auto) [place] % (Auto) 8.6 H [place] # Eos # Lymph # (Auto) [place] # (Auto) Eos # (Auto) Seg Neutrophils % Seg Neuts % (Manual) Baso # (Auto) Lymphocytes % (Manual) Monocytes % (Manual) Eosinophils % (Manual) Basophils % (Manual) Seg Neutrophils # Seg Neutrophils # Man Lymphocytes # (Manual) Monocytes # (Manual) Eosinophils # (Manual) Nucleated RBC % Basophils # (Manual) PT INR APTT Heparin Anti-Xa Level ABG pH POC ABG pO2 ABG pO2 ABG HCO3 ABG O2 Saturation ABG Base Excess POC ABG pCO2 ABG Hemoglobin ABG Oxyhemoglobin ABG Sodium ABG Chloride ABG Glucose Oxyhemoglobin Sodium Potassium Chloride Carbon Dioxide BUN Creatinine 0.7 L Glucose 117 H POC Glucose 132 H Lactic Acid Calcium Phosphorus Magnesium AST ALT Lactate Dehydrogenase Total Bilirubin Direct Bilirubin CK-MB (CK-2) C-Reactive Protein NT-Pro-B Natriuret Pep Total Protein Albumin Arterial Blood Glucose Urine WBC (Auto) Urine Creatinine 01/09/20 01/09/20 01/09/20 04:11 05:38 22:58 WBC RBC Hgb Hct MCHC RDW MCV MCH Lymph % (Auto) [place] % (Auto) [place] # Eos # Lymph # (Auto) [place] # (Auto) Eos # (Auto) Seg Neutrophils % Seg Neuts % (Manual) Baso # (Auto) Lymphocytes % (Manual) Monocytes % (Manual) Eosinophils % (Manual) Basophils % (Manual) Seg Neutrophils # Seg Neutrophils # Man Lymphocytes # (Manual) Monocytes # (Manual) Eosinophils # (Manual) Nucleated RBC % Basophils # (Manual) PT INR APTT Heparin Anti-Xa Level ABG pH POC ABG pO2 ABG pO2 ABG HCO3 ABG O2 Saturation ABG Base Excess POC ABG pCO2 ABG Hemoglobin ABG Oxyhemoglobin ABG Sodium ABG Chloride ABG Glucose Oxyhemoglobin Sodium 147 H Potassium 3.3 L D Chloride Carbon Dioxide 32 H BUN Creatinine 0.6 L Glucose 106 H POC Glucose 107 H 113 H Lactic Acid Calcium Phosphorus Magnesium AST ALT Lactate Dehydrogenase Total Bilirubin Direct Bilirubin CK-MB (CK-2) C-Reactive Protein NT-Pro-B Natriuret Pep Total Protein Albumin Arterial Blood Glucose Urine WBC (Auto) Urine Creatinine 01/10/20 01/10/20 01/10/20 04:05 11:36 17:54 WBC RBC Hgb Hct MCHC RDW MCV MCH Lymph % (Auto) [place] % (Auto) [place] # Eos # Lymph # (Auto) [place] # (Auto) Eos # (Auto) Seg Neutrophils % Seg Neuts % (Manual) Baso # (Auto) Lymphocytes % (Manual) Monocytes % (Manual) Eosinophils % (Manual) Basophils % (Manual) Seg Neutrophils # Seg Neutrophils # Man Lymphocytes # (Manual) Monocytes # (Manual) Eosinophils # (Manual) Nucleated RBC % Basophils # (Manual) PT INR APTT Heparin Anti-Xa Level ABG pH POC ABG pO2 ABG pO2 ABG HCO3 ABG O2 Saturation ABG Base Excess POC ABG pCO2 ABG Hemoglobin ABG Oxyhemoglobin ABG Sodium ABG Chloride ABG Glucose Oxyhemoglobin Sodium Potassium Chloride Carbon Dioxide BUN Creatinine 0.7 L Glucose 110 H POC Glucose 129 H 117 H Lactic Acid Calcium Phosphorus Magnesium AST ALT Lactate Dehydrogenase Total Bilirubin Direct Bilirubin CK-MB (CK-2) C-Reactive Protein NT-Pro-B Natriuret Pep Total Protein Albumin Arterial Blood Glucose Urine WBC (Auto) Urine Creatinine 01/10/20 01/11/20 01/11/20 23:52 03:19 12:09 WBC RBC Hgb Hct MCHC RDW MCV MCH Lymph % (Auto) [place] % (Auto) [place] # Eos # Lymph # (Auto) [place] # (Auto) Eos # (Auto) Seg Neutrophils % Seg Neuts % (Manual) Baso # (Auto) Lymphocytes % (Manual) Monocytes % (Manual) Eosinophils % (Manual) Basophils % (Manual) Seg Neutrophils # Seg Neutrophils # Man Lymphocytes # (Manual) Monocytes # (Manual) Eosinophils # (Manual) Nucleated RBC % Basophils # (Manual) PT INR APTT Heparin Anti-Xa Level ABG pH POC ABG pO2 ABG pO2 ABG HCO3 ABG O2 Saturation ABG Base Excess POC ABG pCO2 ABG Hemoglobin ABG Oxyhemoglobin ABG Sodium ABG Chloride ABG Glucose Oxyhemoglobin Sodium Potassium Chloride Carbon Dioxide BUN Creatinine Glucose POC Glucose 117 H 136 H 115 H Lactic Acid Calcium Phosphorus Magnesium AST ALT Lactate Dehydrogenase Total Bilirubin Direct Bilirubin CK-MB (CK-2) C-Reactive Protein NT-Pro-B Natriuret Pep Total Protein Albumin Arterial Blood Glucose Urine WBC (Auto) Urine Creatinine 01/11/20 01/11/20 01/12/20 18:27 23:28 00:23 WBC RBC Hgb 9.8 L Hct 31.6 L MCHC 31 L RDW 17.8 H MCV 83 L MCH 26 L Lymph % (Auto) [place] % (Auto) 8.0 H [place] # Eos # Lymph # (Auto) [place] # (Auto) Eos # (Auto) Seg Neutrophils % Seg Neuts % (Manual) Baso # (Auto) Lymphocytes % (Manual) Monocytes % (Manual) Eosinophils % (Manual) Basophils % (Manual) Seg Neutrophils # Seg Neutrophils # Man Lymphocytes # (Manual) Monocytes # (Manual) Eosinophils # (Manual) Nucleated RBC % Basophils # (Manual) PT INR APTT Heparin Anti-Xa Level ABG pH POC ABG pO2 ABG pO2 ABG HCO3 ABG O2 Saturation ABG Base Excess POC ABG pCO2 ABG Hemoglobin ABG Oxyhemoglobin ABG Sodium ABG Chloride ABG Glucose Oxyhemoglobin Sodium Potassium Chloride Carbon Dioxide BUN Creatinine Glucose POC Glucose 118 H 122 H Lactic Acid Calcium Phosphorus Magnesium AST ALT Lactate Dehydrogenase Total Bilirubin Direct Bilirubin CK-MB (CK-2) C-Reactive Protein NT-Pro-B Natriuret Pep Total Protein Albumin Arterial Blood Glucose Urine WBC (Auto) Urine Creatinine 01/12/20 01/12/20 01/12/20 00:23 04:18 04:18 WBC RBC Hgb 9.6 L Hct 30.9 L MCHC 31 L RDW 17.3 H MCV 81 L MCH 25 L Lymph % (Auto) [place] % (Auto) [place] # Eos # Lymph # (Auto) [place] # (Auto) Eos # (Auto) Seg Neutrophils % Seg Neuts % (Manual) Baso # (Auto) Lymphocytes % (Manual) Monocytes % (Manual) Eosinophils % (Manual) Basophils % (Manual) Seg Neutrophils # Seg Neutrophils # Man Lymphocytes # (Manual) Monocytes # (Manual) Eosinophils # (Manual) Nucleated RBC % Basophils # (Manual) PT INR APTT Heparin Anti-Xa Level ABG pH POC ABG pO2 ABG pO2 ABG HCO3 ABG O2 Saturation ABG Base Excess POC ABG pCO2 ABG Hemoglobin ABG Oxyhemoglobin ABG Sodium ABG Chloride ABG Glucose Oxyhemoglobin Sodium Potassium Chloride Carbon Dioxide BUN Creatinine 0.7 L 0.7 L Glucose 111 H 108 H POC Glucose Lactic Acid Calcium Phosphorus Magnesium AST ALT Lactate Dehydrogenase Total Bilirubin Direct Bilirubin CK-MB (CK-2) C-Reactive Protein NT-Pro-B Natriuret Pep Total Protein Albumin 2.6 L Arterial Blood Glucose Urine WBC (Auto) Urine Creatinine 01/12/20 01/12/20 01/12/20 06:03 12:27 13:58 WBC RBC Hgb Hct MCHC RDW MCV MCH Lymph % (Auto) [place] % (Auto) [place] # Eos # Lymph # (Auto) [place] # (Auto) Eos # (Auto) Seg Neutrophils % Seg Neuts % (Manual) Baso # (Auto) Lymphocytes % (Manual) Monocytes % (Manual) Eosinophils % (Manual) Basophils % (Manual) Seg Neutrophils # Seg Neutrophils # Man Lymphocytes # (Manual) Monocytes # (Manual) Eosinophils # (Manual) Nucleated RBC % Basophils # (Manual) PT INR APTT Heparin Anti-Xa Level ABG pH 7.453 H POC ABG pO2 76.6 L ABG pO2 ABG HCO3 ABG O2 Saturation ABG Base Excess POC ABG pCO2 ABG Hemoglobin 10.3 L ABG Oxyhemoglobin ABG Sodium ABG Chloride ABG Glucose 99 H Oxyhemoglobin Sodium Potassium Chloride Carbon Dioxide BUN Creatinine Glucose POC Glucose 128 H 121 H Lactic Acid Calcium Phosphorus Magnesium AST ALT Lactate Dehydrogenase Total Bilirubin Direct Bilirubin CK-MB (CK-2) C-Reactive Protein NT-Pro-B Natriuret Pep Total Protein Albumin Arterial Blood Glucose 99 H Urine WBC (Auto) Urine Creatinine 01/12/20 01/13/20 01/13/20 18:24 12:01 17:46 WBC RBC Hgb Hct MCHC RDW MCV MCH Lymph % (Auto) [place] % (Auto) [place] # Eos # Lymph # (Auto) [place] # (Auto) Eos # (Auto) Seg Neutrophils % Seg Neuts % (Manual) Baso # (Auto) Lymphocytes % (Manual) Monocytes % (Manual) Eosinophils % (Manual) Basophils % (Manual) Seg Neutrophils # Seg Neutrophils # Man Lymphocytes # (Manual) Monocytes # (Manual) Eosinophils # (Manual) Nucleated RBC % Basophils # (Manual) PT INR APTT Heparin Anti-Xa Level ABG pH POC ABG pO2 ABG pO2 ABG HCO3 ABG O2 Saturation ABG Base Excess POC ABG pCO2 ABG Hemoglobin ABG Oxyhemoglobin ABG Sodium ABG Chloride ABG Glucose Oxyhemoglobin Sodium Potassium Chloride Carbon Dioxide BUN Creatinine Glucose POC Glucose 119 H 107 H 124 H Lactic Acid Calcium Phosphorus Magnesium AST ALT Lactate Dehydrogenase Total Bilirubin Direct Bilirubin CK-MB (CK-2) C-Reactive Protein NT-Pro-B Natriuret Pep Total Protein Albumin Arterial Blood Glucose Urine WBC (Auto) Urine Creatinine 01/13/20 01/14/20 01/14/20 20:40 00:10 05:33 WBC RBC Hgb Hct MCHC RDW MCV MCH Lymph % (Auto) [place] % (Auto) [place] # Eos # Lymph # (Auto) [place] # (Auto) Eos # (Auto) Seg Neutrophils % Seg Neuts % (Manual) Baso # (Auto) Lymphocytes % (Manual) Monocytes % (Manual) Eosinophils % (Manual) Basophils % (Manual) Seg Neutrophils # Seg Neutrophils # Man Lymphocytes # (Manual) Monocytes # (Manual) Eosinophils # (Manual) Nucleated RBC % Basophils # (Manual) PT INR APTT Heparin Anti-Xa Level ABG pH POC ABG pO2 ABG pO2 65.3 L ABG HCO3 31.8 H ABG O2 Saturation 93.5 L ABG Base Excess 6.7 H POC ABG pCO2 ABG Hemoglobin 13.3 L ABG Oxyhemoglobin ABG Sodium ABG Chloride ABG Glucose Oxyhemoglobin 90.9 L Sodium Potassium Chloride Carbon Dioxide BUN Creatinine Glucose POC Glucose 111 H 111 H Lactic Acid Calcium Phosphorus Magnesium AST ALT Lactate Dehydrogenase Total Bilirubin Direct Bilirubin CK-MB (CK-2) C-Reactive Protein NT-Pro-B Natriuret Pep Total Protein Albumin Arterial Blood Glucose Urine WBC (Auto) Urine Creatinine 01/14/20 01/14/20 01/14/20 12:10 16:14 16:14 WBC RBC Hgb 10.6 L Hct 34.2 L MCHC 31 L RDW 18.3 H MCV 83 L MCH 26 L Lymph % (Auto) [place] % (Auto) 7.4 H [place] # Eos # Lymph # (Auto) [place] # (Auto) Eos # (Auto) Seg Neutrophils % 71.9 H Seg Neuts % (Manual) Baso # (Auto) Lymphocytes % (Manual) Monocytes % (Manual) Eosinophils % (Manual) Basophils % (Manual) Seg Neutrophils # Seg Neutrophils # Man Lymphocytes # (Manual) Monocytes # (Manual) Eosinophils # (Manual) Nucleated RBC % Basophils # (Manual) PT INR APTT Heparin Anti-Xa Level ABG pH POC ABG pO2 ABG pO2 ABG HCO3 ABG O2 Saturation ABG Base Excess POC ABG pCO2 ABG Hemoglobin ABG Oxyhemoglobin ABG Sodium ABG Chloride ABG Glucose Oxyhemoglobin Sodium Potassium Chloride Carbon Dioxide 31 H BUN Creatinine 0.6 L Glucose 131 H POC Glucose 139 H Lactic Acid Calcium Phosphorus Magnesium AST ALT Lactate Dehydrogenase Total Bilirubin Direct Bilirubin CK-MB (CK-2) C-Reactive Protein NT-Pro-B Natriuret Pep Total Protein Albumin Arterial Blood Glucose Urine WBC (Auto) Urine Creatinine 01/14/20 01/15/20 01/15/20 18:05 00:52 05:35 WBC RBC Hgb Hct MCHC RDW MCV MCH Lymph % (Auto) [place] % (Auto) [place] # Eos # Lymph # (Auto) [place] # (Auto) Eos # (Auto) Seg Neutrophils % Seg Neuts % (Manual) Baso # (Auto) Lymphocytes % (Manual) Monocytes % (Manual) Eosinophils % (Manual) Basophils % (Manual) Seg Neutrophils # Seg Neutrophils # Man Lymphocytes # (Manual) Monocytes # (Manual) Eosinophils # (Manual) Nucleated RBC % Basophils # (Manual) PT INR APTT Heparin Anti-Xa Level ABG pH POC ABG pO2 ABG pO2 ABG HCO3 ABG O2 Saturation ABG Base Excess POC ABG pCO2 ABG Hemoglobin ABG Oxyhemoglobin ABG Sodium ABG Chloride ABG Glucose Oxyhemoglobin Sodium Potassium Chloride Carbon Dioxide BUN Creatinine Glucose POC Glucose 147 H 140 H 159 H Lactic Acid Calcium Phosphorus Magnesium AST ALT Lactate Dehydrogenase Total Bilirubin Direct Bilirubin CK-MB (CK-2) C-Reactive Protein NT-Pro-B Natriuret Pep Total Protein Albumin Arterial Blood Glucose Urine WBC (Auto) Urine Creatinine 01/15/20 01/15/20 01/16/20 12:52 17:43 00:32 WBC RBC Hgb Hct MCHC RDW MCV MCH Lymph % (Auto) [place] % (Auto) [place] # Eos # Lymph # (Auto) [place] # (Auto) Eos # (Auto) Seg Neutrophils % Seg Neuts % (Manual) Baso # (Auto) Lymphocytes % (Manual) Monocytes % (Manual) Eosinophils % (Manual) Basophils % (Manual) Seg Neutrophils # Seg Neutrophils # Man Lymphocytes # (Manual) Monocytes # (Manual) Eosinophils # (Manual) Nucleated RBC % Basophils # (Manual) PT INR APTT Heparin Anti-Xa Level ABG pH POC ABG pO2 ABG pO2 ABG HCO3 ABG O2 Saturation ABG Base Excess POC ABG pCO2 ABG Hemoglobin ABG Oxyhemoglobin ABG Sodium ABG Chloride ABG Glucose Oxyhemoglobin Sodium Potassium Chloride Carbon Dioxide BUN Creatinine Glucose POC Glucose 164 H 167 H 153 H Lactic Acid Calcium Phosphorus Magnesium AST ALT Lactate Dehydrogenase Total Bilirubin Direct Bilirubin CK-MB (CK-2) C-Reactive Protein NT-Pro-B Natriuret Pep Total Protein Albumin Arterial Blood Glucose Urine WBC (Auto) Urine Creatinine 01/16/20 01/16/20 01/17/20 05:46 11:48 06:38 WBC RBC Hgb Hct MCHC RDW MCV MCH Lymph % (Auto) [place] % (Auto) [place] # Eos # Lymph # (Auto) [place] # (Auto) Eos # (Auto) Seg Neutrophils % Seg Neuts % (Manual) Baso # (Auto) Lymphocytes % (Manual) Monocytes % (Manual) Eosinophils % (Manual) Basophils % (Manual) Seg Neutrophils # Seg Neutrophils # Man Lymphocytes # (Manual) Monocytes # (Manual) Eosinophils # (Manual) Nucleated RBC % Basophils # (Manual) PT INR APTT Heparin Anti-Xa Level ABG pH POC ABG pO2 ABG pO2 ABG HCO3 ABG O2 Saturation ABG Base Excess POC ABG pCO2 ABG Hemoglobin ABG Oxyhemoglobin ABG Sodium ABG Chloride ABG Glucose Oxyhemoglobin Sodium Potassium Chloride Carbon Dioxide BUN Creatinine Glucose POC Glucose 163 H 155 H 116 H Lactic Acid Calcium Phosphorus Magnesium AST ALT Lactate Dehydrogenase Total Bilirubin Direct Bilirubin CK-MB (CK-2) C-Reactive Protein NT-Pro-B Natriuret Pep Total Protein Albumin Arterial Blood Glucose Urine WBC (Auto) Urine Creatinine 01/17/20 01/17/20 01/18/20 11:36 17:43 00:12 WBC RBC Hgb Hct MCHC RDW MCV MCH Lymph % (Auto) [place] % (Auto) [place] # Eos # Lymph # (Auto) [place] # (Auto) Eos # (Auto) Seg Neutrophils % Seg Neuts % (Manual) Baso # (Auto) Lymphocytes % (Manual) Monocytes % (Manual) Eosinophils % (Manual) Basophils % (Manual) Seg Neutrophils # Seg Neutrophils # Man Lymphocytes # (Manual) Monocytes # (Manual) Eosinophils # (Manual) Nucleated RBC % Basophils # (Manual) PT INR APTT Heparin Anti-Xa Level ABG pH POC ABG pO2 ABG pO2 ABG HCO3 ABG O2 Saturation ABG Base Excess POC ABG pCO2 ABG Hemoglobin ABG Oxyhemoglobin ABG Sodium ABG Chloride ABG Glucose Oxyhemoglobin Sodium Potassium Chloride Carbon Dioxide BUN Creatinine Glucose POC Glucose 110 H 134 H 108 H Lactic Acid Calcium Phosphorus Magnesium AST ALT Lactate Dehydrogenase Total Bilirubin Direct Bilirubin CK-MB (CK-2) C-Reactive Protein NT-Pro-B Natriuret Pep Total Protein Albumin Arterial Blood Glucose Urine WBC (Auto) Urine Creatinine 01/18/20 01/18/20 01/18/20 05:37 06:46 06:46 WBC RBC Hgb 10.1 L Hct 32.2 L MCHC 31 L RDW 18.1 H MCV 81 L MCH 25 L Lymph % (Auto) [place] % (Auto) [place] # Eos # Lymph # (Auto) [place] # (Auto) Eos # (Auto) Seg Neutrophils % 71.9 H Seg Neuts % (Manual) Baso # (Auto) Lymphocytes % (Manual) Monocytes % (Manual) Eosinophils % (Manual) Basophils % (Manual) Seg Neutrophils # Seg Neutrophils # Man Lymphocytes # (Manual) Monocytes # (Manual) Eosinophils # (Manual) Nucleated RBC % Basophils # (Manual) PT INR APTT Heparin Anti-Xa Level ABG pH POC ABG pO2 ABG pO2 ABG HCO3 ABG O2 Saturation ABG Base Excess POC ABG pCO2 ABG Hemoglobin ABG Oxyhemoglobin ABG Sodium ABG Chloride ABG Glucose Oxyhemoglobin Sodium Potassium Chloride Carbon Dioxide BUN Creatinine 0.7 L Glucose 155 H POC Glucose 168 H Lactic Acid Calcium Phosphorus Magnesium AST ALT Lactate Dehydrogenase Total Bilirubin Direct Bilirubin CK-MB (CK-2) C-Reactive Protein NT-Pro-B Natriuret Pep Total Protein Albumin Arterial Blood Glucose Urine WBC (Auto) Urine Creatinine 01/18/20 01/18/20 01/18/20 12:05 17:14 23:28 WBC RBC Hgb Hct MCHC RDW MCV MCH Lymph % (Auto) [place] % (Auto) [place] # Eos # Lymph # (Auto) [place] # (Auto) Eos # (Auto) Seg Neutrophils % Seg Neuts % (Manual) Baso # (Auto) Lymphocytes % (Manual) Monocytes % (Manual) Eosinophils % (Manual) Basophils % (Manual) Seg Neutrophils # Seg Neutrophils # Man Lymphocytes # (Manual) Monocytes # (Manual) Eosinophils # (Manual) Nucleated RBC % Basophils # (Manual) PT INR APTT Heparin Anti-Xa Level ABG pH POC ABG pO2 ABG pO2 ABG HCO3 ABG O2 Saturation ABG Base Excess POC ABG pCO2 ABG Hemoglobin ABG Oxyhemoglobin ABG Sodium ABG Chloride ABG Glucose Oxyhemoglobin Sodium Potassium Chloride Carbon Dioxide BUN Creatinine Glucose POC Glucose 128 H 126 H 128 H Lactic Acid Calcium Phosphorus Magnesium AST ALT Lactate Dehydrogenase Total Bilirubin Direct Bilirubin CK-MB (CK-2) C-Reactive Protein NT-Pro-B Natriuret Pep Total Protein Albumin Arterial Blood Glucose Urine WBC (Auto) Urine Creatinine 01/19/20 01/19/20 01/19/20 05:39 12:33 17:36 WBC RBC Hgb Hct MCHC RDW MCV MCH Lymph % (Auto) [place] % (Auto) [place] # Eos # Lymph # (Auto) [place] # (Auto) Eos # (Auto) Seg Neutrophils % Seg Neuts % (Manual) Baso # (Auto) Lymphocytes % (Manual) Monocytes % (Manual) Eosinophils % (Manual) Basophils % (Manual) Seg Neutrophils # Seg Neutrophils # Man Lymphocytes # (Manual) Monocytes # (Manual) Eosinophils # (Manual) Nucleated RBC % Basophils # (Manual) PT INR APTT Heparin Anti-Xa Level ABG pH POC ABG pO2 ABG pO2 ABG HCO3 ABG O2 Saturation ABG Base Excess POC ABG pCO2 ABG Hemoglobin ABG Oxyhemoglobin ABG Sodium ABG Chloride ABG Glucose Oxyhemoglobin Sodium Potassium Chloride Carbon Dioxide BUN Creatinine Glucose POC Glucose 164 H 171 H 152 H Lactic Acid Calcium Phosphorus Magnesium AST ALT Lactate Dehydrogenase Total Bilirubin Direct Bilirubin CK-MB (CK-2) C-Reactive Protein NT-Pro-B Natriuret Pep Total Protein Albumin Arterial Blood Glucose Urine WBC (Auto) Urine Creatinine 01/20/20 01/20/20 01/20/20 00:12 05:20 05:35 WBC RBC Hgb 9.2 L Hct 29.4 L MCHC 31 L RDW 17.9 H MCV 81 L MCH 25 L Lymph % (Auto) [place] % (Auto) [place] # Eos # Lymph # (Auto) [place] # (Auto) Eos # (Auto) Seg Neutrophils % Seg Neuts % (Manual) Baso # (Auto) Lymphocytes % (Manual) Monocytes % (Manual) Eosinophils % (Manual) Basophils % (Manual) Seg Neutrophils # Seg Neutrophils # Man Lymphocytes # (Manual) Monocytes # (Manual) Eosinophils # (Manual) Nucleated RBC % Basophils # (Manual) PT INR APTT Heparin Anti-Xa Level ABG pH POC ABG pO2 ABG pO2 ABG HCO3 ABG O2 Saturation ABG Base Excess POC ABG pCO2 ABG Hemoglobin ABG Oxyhemoglobin ABG Sodium ABG Chloride ABG Glucose Oxyhemoglobin Sodium Potassium Chloride Carbon Dioxide BUN Creatinine Glucose POC Glucose 120 H 136 H Lactic Acid Calcium Phosphorus Magnesium AST ALT Lactate Dehydrogenase Total Bilirubin Direct Bilirubin CK-MB (CK-2) C-Reactive Protein NT-Pro-B Natriuret Pep Total Protein Albumin Arterial Blood Glucose Urine WBC (Auto) Urine Creatinine 01/20/20 01/20/20 01/20/20 05:40 11:58 14:55 WBC RBC Hgb 9.0 L Hct 28.3 L MCHC RDW MCV MCH Lymph % (Auto) [place] % (Auto) [place] # Eos # Lymph # (Auto) [place] # (Auto) Eos # (Auto) Seg Neutrophils % Seg Neuts % (Manual) Baso # (Auto) Lymphocytes % (Manual) Monocytes % (Manual) Eosinophils % (Manual) Basophils % (Manual) Seg Neutrophils # Seg Neutrophils # Man Lymphocytes # (Manual) Monocytes # (Manual) Eosinophils # (Manual) Nucleated RBC % Basophils # (Manual) PT INR APTT Heparin Anti-Xa Level ABG pH POC ABG pO2 ABG pO2 ABG HCO3 ABG O2 Saturation ABG Base Excess POC ABG pCO2 ABG Hemoglobin ABG Oxyhemoglobin ABG Sodium ABG Chloride ABG Glucose Oxyhemoglobin Sodium Potassium Chloride Carbon Dioxide 32 H BUN 22 H Creatinine 0.7 L Glucose 128 H POC Glucose 152 H Lactic Acid Calcium Phosphorus Magnesium AST ALT Lactate Dehydrogenase Total Bilirubin Direct Bilirubin CK-MB (CK-2) C-Reactive Protein NT-Pro-B Natriuret Pep Total Protein Albumin Arterial Blood Glucose Urine WBC (Auto) Urine Creatinine 01/20/20 01/20/20 01/20/20 14:55 18:14 21:35 WBC RBC Hgb Hct MCHC RDW MCV MCH Lymph % (Auto) [place] % (Auto) [place] # Eos # Lymph # (Auto) [place] # (Auto) Eos # (Auto) Seg Neutrophils % Seg Neuts % (Manual) Baso # (Auto) Lymphocytes % (Manual) Monocytes % (Manual) Eosinophils % (Manual) Basophils % (Manual) Seg Neutrophils # Seg Neutrophils # Man Lymphocytes # (Manual) Monocytes # (Manual) Eosinophils # (Manual) Nucleated RBC % Basophils # (Manual) PT 20.4 H INR 1.72 H APTT 40.6 H Heparin Anti-Xa Level > 2.00 H ABG pH POC ABG pO2 ABG pO2 ABG HCO3 ABG O2 Saturation ABG Base Excess POC ABG pCO2 ABG Hemoglobin ABG Oxyhemoglobin ABG Sodium ABG Chloride ABG Glucose Oxyhemoglobin Sodium Potassium Chloride Carbon Dioxide BUN Creatinine Glucose POC Glucose 150 H Lactic Acid Calcium Phosphorus Magnesium AST ALT Lactate Dehydrogenase Total Bilirubin Direct Bilirubin CK-MB (CK-2) C-Reactive Protein NT-Pro-B Natriuret Pep Total Protein Albumin Arterial Blood Glucose Urine WBC (Auto) Urine Creatinine 01/21/20 01/21/20 01/21/20 00:30 05:47 05:59 WBC RBC Hgb Hct MCHC RDW MCV MCH Lymph % (Auto) [place] % (Auto) [place] # Eos # Lymph # (Auto) [place] # (Auto) Eos # (Auto) Seg Neutrophils % Seg Neuts % (Manual) Baso # (Auto) Lymphocytes % (Manual) Monocytes % (Manual) Eosinophils % (Manual) Basophils % (Manual) Seg Neutrophils # Seg Neutrophils # Man Lymphocytes # (Manual) Monocytes # (Manual) Eosinophils # (Manual) Nucleated RBC % Basophils # (Manual) PT INR APTT Heparin Anti-Xa Level 1.93 H ABG pH POC ABG pO2 ABG pO2 ABG HCO3 ABG O2 Saturation ABG Base Excess POC ABG pCO2 ABG Hemoglobin ABG Oxyhemoglobin ABG Sodium ABG Chloride ABG Glucose Oxyhemoglobin Sodium Potassium Chloride Carbon Dioxide BUN Creatinine Glucose POC Glucose 126 H 148 H Lactic Acid Calcium Phosphorus Magnesium AST ALT Lactate Dehydrogenase Total Bilirubin Direct Bilirubin CK-MB (CK-2) C-Reactive Protein NT-Pro-B Natriuret Pep Total Protein Albumin Arterial Blood Glucose Urine WBC (Auto) Urine Creatinine 01/21/20 01/21/20 01/21/20 12:32 18:20 23:54 WBC RBC Hgb Hct MCHC RDW MCV MCH Lymph % (Auto) [place] % (Auto) [place] # Eos # Lymph # (Auto) [place] # (Auto) Eos # (Auto) Seg Neutrophils % Seg Neuts % (Manual) Baso # (Auto) Lymphocytes % (Manual) Monocytes % (Manual) Eosinophils % (Manual) Basophils % (Manual) Seg Neutrophils # Seg Neutrophils # Man Lymphocytes # (Manual) Monocytes # (Manual) Eosinophils # (Manual) Nucleated RBC % Basophils # (Manual) PT INR APTT Heparin Anti-Xa Level 1.28 H ABG pH POC ABG pO2 ABG pO2 ABG HCO3 ABG O2 Saturation ABG Base Excess POC ABG pCO2 ABG Hemoglobin ABG Oxyhemoglobin ABG Sodium ABG Chloride ABG Glucose Oxyhemoglobin Sodium Potassium Chloride Carbon Dioxide BUN Creatinine Glucose POC Glucose 112 H 146 H Lactic Acid Calcium Phosphorus Magnesium AST ALT Lactate Dehydrogenase Total Bilirubin Direct Bilirubin CK-MB (CK-2) C-Reactive Protein NT-Pro-B Natriuret Pep Total Protein Albumin Arterial Blood Glucose Urine WBC (Auto) Urine Creatinine 01/22/20 01/22/20 01/22/20 04:45 04:45 05:48 WBC RBC Hgb 9.3 L Hct 29.0 L MCHC RDW MCV MCH Lymph % (Auto) [place] % (Auto) [place] # Eos # Lymph # (Auto) [place] # (Auto) Eos # (Auto) Seg Neutrophils % Seg Neuts % (Manual) Baso # (Auto) Lymphocytes % (Manual) Monocytes % (Manual) Eosinophils % (Manual) Basophils % (Manual) Seg Neutrophils # Seg Neutrophils # Man Lymphocytes # (Manual) Monocytes # (Manual) Eosinophils # (Manual) Nucleated RBC % Basophils # (Manual) PT INR APTT Heparin Anti-Xa Level 1.34 H ABG pH POC ABG pO2 ABG pO2 ABG HCO3 ABG O2 Saturation ABG Base Excess POC ABG pCO2 ABG Hemoglobin ABG Oxyhemoglobin ABG Sodium ABG Chloride ABG Glucose Oxyhemoglobin Sodium Potassium Chloride Carbon Dioxide BUN Creatinine Glucose POC Glucose 142 H Lactic Acid Calcium Phosphorus Magnesium AST ALT Lactate Dehydrogenase Total Bilirubin Direct Bilirubin CK-MB (CK-2) C-Reactive Protein NT-Pro-B Natriuret Pep Total Protein Albumin Arterial Blood Glucose Urine WBC (Auto) Urine Creatinine 01/22/20 01/22/20 01/22/20 08:09 08:22 09:58 WBC RBC Hgb Hct MCHC RDW MCV MCH Lymph % (Auto) [place] % (Auto) [place] # Eos # Lymph # (Auto) [place] # (Auto) Eos # (Auto) Seg Neutrophils % Seg Neuts % (Manual) Baso # (Auto) Lymphocytes % (Manual) Monocytes % (Manual) Eosinophils % (Manual) Basophils % (Manual) Seg Neutrophils # Seg Neutrophils # Man Lymphocytes # (Manual) Monocytes # (Manual) Eosinophils # (Manual) Nucleated RBC % Basophils # (Manual) PT 16.9 H INR 1.34 H APTT Heparin Anti-Xa Level ABG pH POC ABG pO2 ABG pO2 ABG HCO3 ABG O2 Saturation ABG Base Excess POC ABG pCO2 ABG Hemoglobin ABG Oxyhemoglobin ABG Sodium ABG Chloride ABG Glucose Oxyhemoglobin Sodium Potassium Chloride 97.8 L Carbon Dioxide BUN 29 H Creatinine Glucose 128 H POC Glucose 131 H Lactic Acid Calcium Phosphorus Magnesium AST ALT Lactate Dehydrogenase Total Bilirubin Direct Bilirubin CK-MB (CK-2) C-Reactive Protein NT-Pro-B Natriuret Pep Total Protein Albumin Arterial Blood Glucose Urine WBC (Auto) Urine Creatinine 1001/22/20 01/22/20 12:44 16:13 18:18 WBC RBC Hgb Hct MCHC RDW MCV MCH Lymph % (Auto) [place] % (Auto) [place] # Eos # Lymph # (Auto) [place] # (Auto) Eos # (Auto) Seg Neutrophils % Seg Neuts % (Manual) Baso # (Auto) Lymphocytes % (Manual) Monocytes % (Manual) Eosinophils % (Manual) Basophils % (Manual) Seg Neutrophils # Seg Neutrophils # Man Lymphocytes # (Manual) Monocytes # (Manual) Eosinophils # (Manual) Nucleated RBC % Basophils # (Manual) PT INR APTT Heparin Anti-Xa Level ABG pH POC ABG pO2 ABG pO2 ABG HCO3 ABG O2 Saturation ABG Base Excess POC ABG pCO2 ABG Hemoglobin ABG Oxyhemoglobin ABG Sodium ABG Chloride ABG Glucose Oxyhemoglobin Sodium Potassium Chloride Carbon Dioxide BUN Creatinine Glucose POC Glucose 156 H 133 H 155 H Lactic Acid Calcium Phosphorus Magnesium AST ALT Lactate Dehydrogenase Total Bilirubin Direct Bilirubin CK-MB (CK-2) C-Reactive Protein NT-Pro-B Natriuret Pep Total Protein Albumin Arterial Blood Glucose Urine WBC (Auto) Urine Creatinine 01/22/20 01/23/20 01/23/20 23:22 05:37 12:59 WBC RBC Hgb Hct MCHC RDW MCV MCH Lymph % (Auto) [place] % (Auto) [place] # Eos # Lymph # (Auto) [place] # (Auto) Eos # (Auto) Seg Neutrophils % Seg Neuts % (Manual) Baso # (Auto) Lymphocytes % (Manual) Monocytes % (Manual) Eosinophils % (Manual) Basophils % (Manual) Seg Neutrophils # Seg Neutrophils # Man Lymphocytes # (Manual) Monocytes # (Manual) Eosinophils # (Manual) Nucleated RBC % Basophils # (Manual) PT INR APTT Heparin Anti-Xa Level ABG pH POC ABG pO2 ABG pO2 ABG HCO3 ABG O2 Saturation ABG Base Excess POC ABG pCO2 ABG Hemoglobin ABG Oxyhemoglobin ABG Sodium ABG Chloride ABG Glucose Oxyhemoglobin Sodium Potassium Chloride Carbon Dioxide BUN Creatinine Glucose POC Glucose 148 H 163 H 175 H Lactic Acid Calcium Phosphorus Magnesium AST ALT Lactate Dehydrogenase Total Bilirubin Direct Bilirubin CK-MB (CK-2) C-Reactive Protein NT-Pro-B Natriuret Pep Total Protein Albumin Arterial Blood Glucose Urine WBC (Auto) Urine Creatinine 01/23/20 01/23/20 01/24/20 17:28 23:56 04:30 WBC RBC 3.46 L Hgb 8.8 L Hct 27.8 L MCHC RDW 18.2 H MCV 81 L MCH 25 L Lymph % (Auto) [place] % (Auto) 7.8 H [place] # Eos # Lymph # (Auto) [place] # (Auto) Eos # (Auto) Seg Neutrophils % Seg Neuts % (Manual) Baso # (Auto) Lymphocytes % (Manual) Monocytes % (Manual) Eosinophils % (Manual) Basophils % (Manual) Seg Neutrophils # Seg Neutrophils # Man Lymphocytes # (Manual) Monocytes # (Manual) Eosinophils # (Manual) Nucleated RBC % Basophils # (Manual) PT INR APTT Heparin Anti-Xa Level ABG pH POC ABG pO2 ABG pO2 ABG HCO3 ABG O2 Saturation ABG Base Excess POC ABG pCO2 ABG Hemoglobin ABG Oxyhemoglobin ABG Sodium ABG Chloride ABG Glucose Oxyhemoglobin Sodium Potassium Chloride Carbon Dioxide BUN Creatinine Glucose POC Glucose 165 H 177 H Lactic Acid Calcium Phosphorus Magnesium AST ALT Lactate Dehydrogenase Total Bilirubin Direct Bilirubin CK-MB (CK-2) C-Reactive Protein NT-Pro-B Natriuret Pep Total Protein Albumin Arterial Blood Glucose Urine WBC (Auto) Urine Creatinine 01/24/20 01/24/20 01/24/20 04:30 07:18 12:06 WBC RBC Hgb Hct MCHC RDW MCV MCH Lymph % (Auto) [place] % (Auto) [place] # Eos # Lymph # (Auto) [place] # (Auto) Eos # (Auto) Seg Neutrophils % Seg Neuts % (Manual) Baso # (Auto) Lymphocytes % (Manual) Monocytes % (Manual) Eosinophils % (Manual) Basophils % (Manual) Seg Neutrophils # Seg Neutrophils # Man Lymphocytes # (Manual) Monocytes # (Manual) Eosinophils # (Manual) Nucleated RBC % Basophils # (Manual) PT INR APTT Heparin Anti-Xa Level ABG pH POC ABG pO2 ABG pO2 ABG HCO3 ABG O2 Saturation ABG Base Excess POC ABG pCO2 ABG Hemoglobin ABG Oxyhemoglobin ABG Sodium ABG Chloride ABG Glucose Oxyhemoglobin Sodium Potassium Chloride 97.9 L Carbon Dioxide BUN 31 H Creatinine Glucose 146 H POC Glucose 151 H 133 H Lactic Acid Calcium Phosphorus Magnesium AST ALT Lactate Dehydrogenase Total Bilirubin Direct Bilirubin CK-MB (CK-2) C-Reactive Protein NT-Pro-B Natriuret Pep Total Protein Albumin Arterial Blood Glucose Urine WBC (Auto) Urine Creatinine 01/24/20 01/25/20 01/25/20 17:36 00:08 04:25 WBC RBC 3.50 L Hgb 8.7 L Hct 27.9 L MCHC 31 L RDW 18.2 H MCV 80 L MCH 25 L Lymph % (Auto) [place] % (Auto) 8.5 H [place] # Eos # Lymph # (Auto) [place] # (Auto) Eos # (Auto) Seg Neutrophils % Seg Neuts % (Manual) Baso # (Auto) Lymphocytes % (Manual) Monocytes % (Manual) Eosinophils % (Manual) Basophils % (Manual) Seg Neutrophils # Seg Neutrophils # Man Lymphocytes # (Manual) Monocytes # (Manual) Eosinophils # (Manual) Nucleated RBC % Basophils # (Manual) PT INR APTT Heparin Anti-Xa Level ABG pH POC ABG pO2 ABG pO2 ABG HCO3 ABG O2 Saturation ABG Base Excess POC ABG pCO2 ABG Hemoglobin ABG Oxyhemoglobin ABG Sodium ABG Chloride ABG Glucose Oxyhemoglobin Sodium Potassium Chloride Carbon Dioxide BUN Creatinine Glucose POC Glucose 133 H 129 H Lactic Acid Calcium Phosphorus Magnesium AST ALT Lactate Dehydrogenase Total Bilirubin Direct Bilirubin CK-MB (CK-2) C-Reactive Protein NT-Pro-B Natriuret Pep Total Protein Albumin Arterial Blood Glucose Urine WBC (Auto) Urine Creatinine 01/25/20 01/25/20 01/25/20 04:25 05:38 11:52 WBC RBC Hgb Hct MCHC RDW MCV MCH Lymph % (Auto) [place] % (Auto) [place] # Eos # Lymph # (Auto) [place] # (Auto) Eos # (Auto) Seg Neutrophils % Seg Neuts % (Manual) Baso # (Auto) Lymphocytes % (Manual) Monocytes % (Manual) Eosinophils % (Manual) Basophils % (Manual) Seg Neutrophils # Seg Neutrophils # Man Lymphocytes # (Manual) Monocytes # (Manual) Eosinophils # (Manual) Nucleated RBC % Basophils # (Manual) PT INR APTT Heparin Anti-Xa Level ABG pH POC ABG pO2 ABG pO2 ABG HCO3 ABG O2 Saturation ABG Base Excess POC ABG pCO2 ABG Hemoglobin ABG Oxyhemoglobin ABG Sodium ABG Chloride ABG Glucose Oxyhemoglobin Sodium Potassium Chloride Carbon Dioxide BUN 30 H Creatinine Glucose 134 H POC Glucose 129 H 134 H Lactic Acid Calcium Phosphorus Magnesium AST ALT Lactate Dehydrogenase Total Bilirubin Direct Bilirubin CK-MB (CK-2) C-Reactive Protein NT-Pro-B Natriuret Pep Total Protein Albumin Arterial Blood Glucose Urine WBC (Auto) Urine Creatinine 01/25/20 01/25/20 01/26/20 17:13 21:02 00:59 WBC RBC Hgb Hct MCHC RDW MCV MCH Lymph % (Auto) [place] % (Auto) [place] # Eos # Lymph # (Auto) [place] # (Auto) Eos # (Auto) Seg Neutrophils % Seg Neuts % (Manual) Baso # (Auto) Lymphocytes % (Manual) Monocytes % (Manual) Eosinophils % (Manual) Basophils % (Manual) Seg Neutrophils # Seg Neutrophils # Man Lymphocytes # (Manual) Monocytes # (Manual) Eosinophils # (Manual) Nucleated RBC % Basophils # (Manual) PT INR APTT Heparin Anti-Xa Level ABG pH POC ABG pO2 ABG pO2 57.5 L ABG HCO3 31.7 H ABG O2 Saturation 90.3 L ABG Base Excess 6.6 H POC ABG pCO2 ABG Hemoglobin 13.0 L ABG Oxyhemoglobin ABG Sodium ABG Chloride ABG Glucose Oxyhemoglobin 87.5 L Sodium Potassium Chloride Carbon Dioxide BUN Creatinine Glucose POC Glucose 124 H 196 H Lactic Acid Calcium Phosphorus Magnesium AST ALT Lactate Dehydrogenase Total Bilirubin Direct Bilirubin CK-MB (CK-2) C-Reactive Protein NT-Pro-B Natriuret Pep Total Protein Albumin Arterial Blood Glucose Urine WBC (Auto) Urine Creatinine 01/26/20 01/26/20 01/26/20 03:20 05:46 12:46 WBC RBC Hgb 9.2 L Hct 29.4 L MCHC RDW MCV MCH Lymph % (Auto) [place] % (Auto) [place] # Eos # Lymph # (Auto) [place] # (Auto) Eos # (Auto) Seg Neutrophils % Seg Neuts % (Manual) Baso # (Auto) Lymphocytes % (Manual) Monocytes % (Manual) Eosinophils % (Manual) Basophils % (Manual) Seg Neutrophils # Seg Neutrophils # Man Lymphocytes # (Manual) Monocytes # (Manual) Eosinophils # (Manual) Nucleated RBC % Basophils # (Manual) PT INR APTT Heparin Anti-Xa Level ABG pH POC ABG pO2 ABG pO2 ABG HCO3 ABG O2 Saturation ABG Base Excess POC ABG pCO2 ABG Hemoglobin ABG Oxyhemoglobin ABG Sodium ABG Chloride ABG Glucose Oxyhemoglobin Sodium Potassium Chloride Carbon Dioxide BUN Creatinine Glucose POC Glucose 141 H 122 H Lactic Acid Calcium Phosphorus Magnesium AST ALT Lactate Dehydrogenase Total Bilirubin Direct Bilirubin CK-MB (CK-2) C-Reactive Protein NT-Pro-B Natriuret Pep Total Protein Albumin Arterial Blood Glucose Urine WBC (Auto) Urine Creatinine 01/26/20 01/26/20 01/27/20 18:03 23:55 04:47 WBC RBC Hgb Hct MCHC RDW MCV MCH Lymph % (Auto) [place] % (Auto) [place] # Eos # Lymph # (Auto) [place] # (Auto) Eos # (Auto) Seg Neutrophils % Seg Neuts % (Manual) Baso # (Auto) Lymphocytes % (Manual) Monocytes % (Manual) Eosinophils % (Manual) Basophils % (Manual) Seg Neutrophils # Seg Neutrophils # Man Lymphocytes # (Manual) Monocytes # (Manual) Eosinophils # (Manual) Nucleated RBC % Basophils # (Manual) PT INR APTT Heparin Anti-Xa Level ABG pH POC ABG pO2 ABG pO2 ABG HCO3 ABG O2 Saturation ABG Base Excess POC ABG pCO2 ABG Hemoglobin ABG Oxyhemoglobin ABG Sodium ABG Chloride ABG Glucose Oxyhemoglobin Sodium Potassium Chloride Carbon Dioxide BUN 30 H Creatinine 0.7 L Glucose 135 H POC Glucose 142 H 159 H Lactic Acid Calcium Phosphorus Magnesium AST ALT Lactate Dehydrogenase Total Bilirubin Direct Bilirubin CK-MB (CK-2) C-Reactive Protein NT-Pro-B Natriuret Pep Total Protein Albumin Arterial Blood Glucose Urine WBC (Auto) Urine Creatinine 01/27/20 01/27/20 01/27/20 05:43 12:06 17:16 WBC RBC Hgb Hct MCHC RDW MCV MCH Lymph % (Auto) [place] % (Auto) [place] # Eos # Lymph # (Auto) [place] # (Auto) Eos # (Auto) Seg Neutrophils % Seg Neuts % (Manual) Baso # (Auto) Lymphocytes % (Manual) Monocytes % (Manual) Eosinophils % (Manual) Basophils % (Manual) Seg Neutrophils # Seg Neutrophils # Man Lymphocytes # (Manual) Monocytes # (Manual) Eosinophils # (Manual) Nucleated RBC % Basophils # (Manual) PT INR APTT Heparin Anti-Xa Level ABG pH POC ABG pO2 ABG pO2 ABG HCO3 ABG O2 Saturation ABG Base Excess POC ABG pCO2 ABG Hemoglobin ABG Oxyhemoglobin ABG Sodium ABG Chloride ABG Glucose Oxyhemoglobin Sodium Potassium Chloride Carbon Dioxide BUN Creatinine Glucose POC Glucose 143 H 142 H 128 H Lactic Acid Calcium Phosphorus Magnesium AST ALT Lactate Dehydrogenase Total Bilirubin Direct Bilirubin CK-MB (CK-2) C-Reactive Protein NT-Pro-B Natriuret Pep Total Protein Albumin Arterial Blood Glucose Urine WBC (Auto) Urine Creatinine 01/27/20 01/28/20 01/28/20 23:55 04:37 05:55 WBC RBC Hgb 9.4 L Hct 29.9 L MCHC RDW MCV MCH Lymph % (Auto) [place] % (Auto) [place] # Eos # Lymph # (Auto) [place] # (Auto) Eos # (Auto) Seg Neutrophils % Seg Neuts % (Manual) Baso # (Auto) Lymphocytes % (Manual) Monocytes % (Manual) Eosinophils % (Manual) Basophils % (Manual) Seg Neutrophils # Seg Neutrophils # Man Lymphocytes # (Manual) Monocytes # (Manual) Eosinophils # (Manual) Nucleated RBC % Basophils # (Manual) PT INR APTT Heparin Anti-Xa Level ABG pH POC ABG pO2 ABG pO2 ABG HCO3 ABG O2 Saturation ABG Base Excess POC ABG pCO2 ABG Hemoglobin ABG Oxyhemoglobin ABG Sodium ABG Chloride ABG Glucose Oxyhemoglobin Sodium Potassium Chloride Carbon Dioxide BUN Creatinine Glucose POC Glucose 166 H 169 H Lactic Acid Calcium Phosphorus Magnesium AST ALT Lactate Dehydrogenase Total Bilirubin Direct Bilirubin CK-MB (CK-2) C-Reactive Protein NT-Pro-B Natriuret Pep Total Protein Albumin Arterial Blood Glucose Urine WBC (Auto) Urine Creatinine 01/28/20 01/28/20 01/28/20 11:58 17:26 23:46 WBC RBC Hgb Hct MCHC RDW MCV MCH Lymph % (Auto) [place] % (Auto) [place] # Eos # Lymph # (Auto) [place] # (Auto) Eos # (Auto) Seg Neutrophils % Seg Neuts % (Manual) Baso # (Auto) Lymphocytes % (Manual) Monocytes % (Manual) Eosinophils % (Manual) Basophils % (Manual) Seg Neutrophils # Seg Neutrophils # Man Lymphocytes # (Manual) Monocytes # (Manual) Eosinophils # (Manual) Nucleated RBC % Basophils # (Manual) PT INR APTT Heparin Anti-Xa Level ABG pH POC ABG pO2 ABG pO2 ABG HCO3 ABG O2 Saturation ABG Base Excess POC ABG pCO2 ABG Hemoglobin ABG Oxyhemoglobin ABG Sodium ABG Chloride ABG Glucose Oxyhemoglobin Sodium Potassium Chloride Carbon Dioxide BUN Creatinine Glucose POC Glucose 130 H 126 H 150 H Lactic Acid Calcium Phosphorus Magnesium AST ALT Lactate Dehydrogenase Total Bilirubin Direct Bilirubin CK-MB (CK-2) C-Reactive Protein NT-Pro-B Natriuret Pep Total Protein Albumin Arterial Blood Glucose Urine WBC (Auto) Urine Creatinine 01/29/20 01/29/20 01/29/20 04:55 06:00 12:28 WBC RBC Hgb Hct MCHC RDW MCV MCH Lymph % (Auto) [place] % (Auto) [place] # Eos # Lymph # (Auto) [place] # (Auto) Eos # (Auto) Seg Neutrophils % Seg Neuts % (Manual) Baso # (Auto) Lymphocytes % (Manual) Monocytes % (Manual) Eosinophils % (Manual) Basophils % (Manual) Seg Neutrophils # Seg Neutrophils # Man Lymphocytes # (Manual) Monocytes # (Manual) Eosinophils # (Manual) Nucleated RBC % Basophils # (Manual) PT INR APTT Heparin Anti-Xa Level ABG pH POC ABG pO2 ABG pO2 ABG HCO3 ABG O2 Saturation ABG Base Excess POC ABG pCO2 ABG Hemoglobin ABG Oxyhemoglobin ABG Sodium ABG Chloride ABG Glucose Oxyhemoglobin Sodium Potassium Chloride Carbon Dioxide 34 H BUN Creatinine 0.6 L Glucose 152 H POC Glucose 157 H 156 H Lactic Acid Calcium Phosphorus Magnesium AST ALT Lactate Dehydrogenase Total Bilirubin Direct Bilirubin CK-MB (CK-2) C-Reactive Protein NT-Pro-B Natriuret Pep Total Protein Albumin Arterial Blood Glucose Urine WBC (Auto) Urine Creatinine 01/29/20 01/30/20 01/30/20 19:06 00:29 05:39 WBC RBC Hgb Hct MCHC RDW MCV MCH Lymph % (Auto) [place] % (Auto) [place] # Eos # Lymph # (Auto) [place] # (Auto) Eos # (Auto) Seg Neutrophils % Seg Neuts % (Manual) Baso # (Auto) Lymphocytes % (Manual) Monocytes % (Manual) Eosinophils % (Manual) Basophils % (Manual) Seg Neutrophils # Seg Neutrophils # Man Lymphocytes # (Manual) Monocytes # (Manual) Eosinophils # (Manual) Nucleated RBC % Basophils # (Manual) PT INR APTT Heparin Anti-Xa Level ABG pH POC ABG pO2 ABG pO2 ABG HCO3 ABG O2 Saturation ABG Base Excess POC ABG pCO2 ABG Hemoglobin ABG Oxyhemoglobin ABG Sodium ABG Chloride ABG Glucose Oxyhemoglobin Sodium Potassium Chloride Carbon Dioxide BUN Creatinine Glucose POC Glucose 152 H 132 H 159 H Lactic Acid Calcium Phosphorus Magnesium AST ALT Lactate Dehydrogenase Total Bilirubin Direct Bilirubin CK-MB (CK-2) C-Reactive Protein NT-Pro-B Natriuret Pep Total Protein Albumin Arterial Blood Glucose Urine WBC (Auto) Urine Creatinine 01/30/20 01/30/20 01/30/20 12:27 17:42 23:28 WBC RBC Hgb Hct MCHC RDW MCV MCH Lymph % (Auto) [place] % (Auto) [place] # Eos # Lymph # (Auto) [place] # (Auto) Eos # (Auto) Seg Neutrophils % Seg Neuts % (Manual) Baso # (Auto) Lymphocytes % (Manual) Monocytes % (Manual) Eosinophils % (Manual) Basophils % (Manual) Seg Neutrophils # Seg Neutrophils # Man Lymphocytes # (Manual) Monocytes # (Manual) Eosinophils # (Manual) Nucleated RBC % Basophils # (Manual) PT INR APTT Heparin Anti-Xa Level ABG pH POC ABG pO2 ABG pO2 ABG HCO3 ABG O2 Saturation ABG Base Excess POC ABG pCO2 ABG Hemoglobin ABG Oxyhemoglobin ABG Sodium ABG Chloride ABG Glucose Oxyhemoglobin Sodium Potassium Chloride Carbon Dioxide BUN Creatinine Glucose POC Glucose 151 H 144 H 164 H Lactic Acid Calcium Phosphorus Magnesium AST ALT Lactate Dehydrogenase Total Bilirubin Direct Bilirubin CK-MB (CK-2) C-Reactive Protein NT-Pro-B Natriuret Pep Total Protein Albumin Arterial Blood Glucose Urine WBC (Auto) Urine Creatinine 01/31/20 01/31/20 01/31/20 05:51 11:51 18:06 WBC RBC Hgb Hct MCHC RDW MCV MCH Lymph % (Auto) [place] % (Auto) [place] # Eos # Lymph # (Auto) [place] # (Auto) Eos # (Auto) Seg Neutrophils % Seg Neuts % (Manual) Baso # (Auto) Lymphocytes % (Manual) Monocytes % (Manual) Eosinophils % (Manual) Basophils % (Manual) Seg Neutrophils # Seg Neutrophils # Man Lymphocytes # (Manual) Monocytes # (Manual) Eosinophils # (Manual) Nucleated RBC % Basophils # (Manual) PT INR APTT Heparin Anti-Xa Level ABG pH POC ABG pO2 ABG pO2 ABG HCO3 ABG O2 Saturation ABG Base Excess POC ABG pCO2 ABG Hemoglobin ABG Oxyhemoglobin ABG Sodium ABG Chloride ABG Glucose Oxyhemoglobin Sodium Potassium Chloride Carbon Dioxide BUN Creatinine Glucose POC Glucose 131 H 167 H 210 H Lactic Acid Calcium Phosphorus Magnesium AST ALT Lactate Dehydrogenase Total Bilirubin Direct Bilirubin CK-MB (CK-2) C-Reactive Protein NT-Pro-B Natriuret Pep Total Protein Albumin Arterial Blood Glucose Urine WBC (Auto) Urine Creatinine 01/31/20 01/31/20 02/01/20 19:24 Unknown 00:34 WBC RBC Hgb Hct MCHC RDW MCV MCH Lymph % (Auto) [place] % (Auto) [place] # Eos # Lymph # (Auto) [place] # (Auto) Eos # (Auto) Seg Neutrophils % Seg Neuts % (Manual) Baso # (Auto) Lymphocytes % (Manual) Monocytes % (Manual) Eosinophils % (Manual) Basophils % (Manual) Seg Neutrophils # Seg Neutrophils # Man Lymphocytes # (Manual) Monocytes # (Manual) Eosinophils # (Manual) Nucleated RBC % Basophils # (Manual) PT INR APTT Heparin Anti-Xa Level ABG pH POC ABG pO2 ABG pO2 ABG HCO3 ABG O2 Saturation ABG Base Excess POC ABG pCO2 ABG Hemoglobin ABG Oxyhemoglobin ABG Sodium ABG Chloride ABG Glucose Oxyhemoglobin Sodium Potassium Chloride 95.3 L Carbon Dioxide 33 H BUN 36 H Creatinine Glucose 187 H POC Glucose 116 H Lactic Acid Calcium Phosphorus Magnesium AST ALT Lactate Dehydrogenase Total Bilirubin Direct Bilirubin CK-MB (CK-2) C-Reactive Protein NT-Pro-B Natriuret Pep Total Protein Albumin Arterial Blood Glucose Urine WBC (Auto) Urine Creatinine 57.4 H 02/01/20 02/01/20 02/01/20 05:24 10:40 12:29 WBC RBC Hgb Hct MCHC RDW MCV MCH Lymph % (Auto) [place] % (Auto) [place] # Eos # Lymph # (Auto) [place] # (Auto) Eos # (Auto) Seg Neutrophils % Seg Neuts % (Manual) Baso # (Auto) Lymphocytes % (Manual) Monocytes % (Manual) Eosinophils % (Manual) Basophils % (Manual) Seg Neutrophils # Seg Neutrophils # Man Lymphocytes # (Manual) Monocytes # (Manual) Eosinophils # (Manual) Nucleated RBC % Basophils # (Manual) PT INR APTT Heparin Anti-Xa Level ABG pH POC ABG pO2 ABG pO2 ABG HCO3 ABG O2 Saturation ABG Base Excess POC ABG pCO2 ABG Hemoglobin ABG Oxyhemoglobin ABG Sodium ABG Chloride ABG Glucose Oxyhemoglobin Sodium Potassium Chloride Carbon Dioxide BUN Creatinine Glucose POC Glucose 142 H 165 H 151 H Lactic Acid Calcium Phosphorus Magnesium AST ALT Lactate Dehydrogenase Total Bilirubin Direct Bilirubin CK-MB (CK-2) C-Reactive Protein NT-Pro-B Natriuret Pep Total Protein Albumin Arterial Blood Glucose Urine WBC (Auto) Urine Creatinine 02/01/20 02/01/20 02/02/20 17:16 23:23 06:36 WBC RBC Hgb Hct MCHC RDW MCV MCH Lymph % (Auto) [place] % (Auto) [place] # Eos # Lymph # (Auto) [place] # (Auto) Eos # (Auto) Seg Neutrophils % Seg Neuts % (Manual) Baso # (Auto) Lymphocytes % (Manual) Monocytes % (Manual) Eosinophils % (Manual) Basophils % (Manual) Seg Neutrophils # Seg Neutrophils # Man Lymphocytes # (Manual) Monocytes # (Manual) Eosinophils # (Manual) Nucleated RBC % Basophils # (Manual) PT INR APTT Heparin Anti-Xa Level ABG pH POC ABG pO2 ABG pO2 ABG HCO3 ABG O2 Saturation ABG Base Excess POC ABG pCO2 ABG Hemoglobin ABG Oxyhemoglobin ABG Sodium ABG Chloride ABG Glucose Oxyhemoglobin Sodium Potassium Chloride Carbon Dioxide BUN Creatinine Glucose POC Glucose 137 H 145 H 181 H Lactic Acid Calcium Phosphorus Magnesium AST ALT Lactate Dehydrogenase Total Bilirubin Direct Bilirubin CK-MB (CK-2) C-Reactive Protein NT-Pro-B Natriuret Pep Total Protein Albumin Arterial Blood Glucose Urine WBC (Auto) Urine Creatinine 02/02/20 02/02/20 02/02/20 10:01 12:05 17:54 WBC RBC Hgb Hct MCHC RDW MCV MCH Lymph % (Auto) [place] % (Auto) [place] # Eos # Lymph # (Auto) [place] # (Auto) Eos # (Auto) Seg Neutrophils % Seg Neuts % (Manual) Baso # (Auto) Lymphocytes % (Manual) Monocytes % (Manual) Eosinophils % (Manual) Basophils % (Manual) Seg Neutrophils # Seg Neutrophils # Man Lymphocytes # (Manual) Monocytes # (Manual) Eosinophils # (Manual) Nucleated RBC % Basophils # (Manual) PT INR APTT Heparin Anti-Xa Level ABG pH POC ABG pO2 ABG pO2 ABG HCO3 ABG O2 Saturation ABG Base Excess POC ABG pCO2 ABG Hemoglobin ABG Oxyhemoglobin ABG Sodium ABG Chloride ABG Glucose Oxyhemoglobin Sodium Potassium Chloride 95.3 L Carbon Dioxide BUN 44 H Creatinine Glucose 234 H POC Glucose 184 H 127 H Lactic Acid Calcium Phosphorus Magnesium AST 363 H ALT 457 H Lactate Dehydrogenase Total Bilirubin Direct Bilirubin CK-MB (CK-2) C-Reactive Protein NT-Pro-B Natriuret Pep Total Protein Albumin 3.0 L Arterial Blood Glucose Urine WBC (Auto) Urine Creatinine 02/02/20 02/03/20 02/03/20 23:47 05:32 07:04 WBC 13.0 H RBC Hgb 9.5 L Hct 30.8 L MCHC 31 L RDW 19.6 H MCV 81 L MCH 25 L Lymph % (Auto) [place] % (Auto) 9.4 H [place] # Eos # Lymph # (Auto) [place] # (Auto) 1.2 H Eos # (Auto) Seg Neutrophils % 72.3 H Seg Neuts % (Manual) Baso # (Auto) Lymphocytes % (Manual) Monocytes % (Manual) Eosinophils % (Manual) Basophils % (Manual) Seg Neutrophils # 9.4 H Seg Neutrophils # Man Lymphocytes # (Manual) Monocytes # (Manual) Eosinophils # (Manual) Nucleated RBC % Basophils # (Manual) PT INR APTT Heparin Anti-Xa Level ABG pH POC ABG pO2 ABG pO2 ABG HCO3 ABG O2 Saturation ABG Base Excess POC ABG pCO2 ABG Hemoglobin ABG Oxyhemoglobin ABG Sodium ABG Chloride ABG Glucose Oxyhemoglobin Sodium Potassium Chloride Carbon Dioxide BUN Creatinine Glucose POC Glucose 124 H 129 H Lactic Acid Calcium Phosphorus Magnesium AST ALT Lactate Dehydrogenase Total Bilirubin Direct Bilirubin CK-MB (CK-2) C-Reactive Protein NT-Pro-B Natriuret Pep Total Protein Albumin Arterial Blood Glucose Urine WBC (Auto) Urine Creatinine 02/03/20 02/03/20 02/03/20 07:04 11:32 12:49 WBC RBC Hgb Hct MCHC RDW MCV MCH Lymph % (Auto) [place] % (Auto) [place] # Eos # Lymph # (Auto) [place] # (Auto) Eos # (Auto) Seg Neutrophils % Seg Neuts % (Manual) Baso # (Auto) Lymphocytes % (Manual) Monocytes % (Manual) Eosinophils % (Manual) Basophils % (Manual) Seg Neutrophils # Seg Neutrophils # Man Lymphocytes # (Manual) Monocytes # (Manual) Eosinophils # (Manual) Nucleated RBC % Basophils # (Manual) PT INR APTT Heparin Anti-Xa Level ABG pH POC ABG pO2 ABG pO2 ABG HCO3 ABG O2 Saturation ABG Base Excess POC ABG pCO2 ABG Hemoglobin ABG Oxyhemoglobin ABG Sodium ABG Chloride ABG Glucose Oxyhemoglobin Sodium Potassium Chloride 97.9 L Carbon Dioxide 33 H BUN 39 H Creatinine Glucose 119 H POC Glucose 138 H Lactic Acid Calcium Phosphorus Magnesium 2.60 H AST ALT Lactate Dehydrogenase Total Bilirubin Direct Bilirubin CK-MB (CK-2) C-Reactive Protein NT-Pro-B Natriuret Pep Total Protein Albumin Arterial Blood Glucose Urine WBC (Auto) Urine Creatinine 02/03/20 02/04/20 02/04/20 18:28 16:24 16:24 WBC RBC 3.38 L Hgb 8.6 L Hct 26.9 L MCHC RDW 19.5 H MCV 80 L MCH 26 L Lymph % (Auto) [place] % (Auto) [place] # Eos # Lymph # (Auto) [place] # (Auto) Eos # (Auto) Seg Neutrophils % Seg Neuts % (Manual) Baso # (Auto) Lymphocytes % (Manual) Monocytes % (Manual) Eosinophils % (Manual) Basophils % (Manual) Seg Neutrophils # Seg Neutrophils # Man Lymphocytes # (Manual) Monocytes # (Manual) Eosinophils # (Manual) Nucleated RBC % Basophils # (Manual) PT INR APTT Heparin Anti-Xa Level ABG pH POC ABG pO2 ABG pO2 ABG HCO3 ABG O2 Saturation ABG Base Excess POC ABG pCO2 ABG Hemoglobin ABG Oxyhemoglobin ABG Sodium ABG Chloride ABG Glucose Oxyhemoglobin Sodium Potassium 3.4 L Chloride Carbon Dioxide 31 H BUN 37 H Creatinine Glucose 70 L POC Glucose 118 H Lactic Acid Calcium Phosphorus Magnesium AST 169 H ALT 394 H Lactate Dehydrogenase Total Bilirubin 1.50 H Direct Bilirubin CK-MB (CK-2) C-Reactive Protein NT-Pro-B Natriuret Pep Total Protein Albumin 2.9 L Arterial Blood Glucose Urine WBC (Auto) Urine Creatinine 02/05/20 02/05/20 02/05/20 00:41 06:37 17:14 WBC RBC Hgb Hct MCHC RDW MCV MCH Lymph % (Auto) [place] % (Auto) [place] # Eos # Lymph # (Auto) [place] # (Auto) Eos # (Auto) Seg Neutrophils % Seg Neuts % (Manual) Baso # (Auto) Lymphocytes % (Manual) Monocytes % (Manual) Eosinophils % (Manual) Basophils % (Manual) Seg Neutrophils # Seg Neutrophils # Man Lymphocytes # (Manual) Monocytes # (Manual) Eosinophils # (Manual) Nucleated RBC % Basophils # (Manual) PT INR APTT Heparin Anti-Xa Level ABG pH POC ABG pO2 ABG pO2 ABG HCO3 ABG O2 Saturation ABG Base Excess POC ABG pCO2 ABG Hemoglobin ABG Oxyhemoglobin ABG Sodium ABG Chloride ABG Glucose Oxyhemoglobin Sodium Potassium 3.1 L Chloride Carbon Dioxide 35 H BUN 32 H Creatinine 0.7 L Glucose POC Glucose 69 L 127 H Lactic Acid Calcium Phosphorus Magnesium AST 134 H ALT 352 H Lactate Dehydrogenase Total Bilirubin 1.60 H Direct Bilirubin CK-MB (CK-2) C-Reactive Protein NT-Pro-B Natriuret Pep Total Protein Albumin 2.9 L Arterial Blood Glucose Urine WBC (Auto) Urine Creatinine 02/05/20 02/06/20 02/06/20 23:43 05:32 08:01 WBC RBC Hgb Hct MCHC RDW MCV MCH Lymph % (Auto) [place] % (Auto) [place] # Eos # Lymph # (Auto) [place] # (Auto) Eos # (Auto) Seg Neutrophils % Seg Neuts % (Manual) Baso # (Auto) Lymphocytes % (Manual) Monocytes % (Manual) Eosinophils % (Manual) Basophils % (Manual) Seg Neutrophils # Seg Neutrophils # Man Lymphocytes # (Manual) Monocytes # (Manual) Eosinophils # (Manual) Nucleated RBC % Basophils # (Manual) PT INR APTT Heparin Anti-Xa Level ABG pH POC ABG pO2 ABG pO2 ABG HCO3 ABG O2 Saturation ABG Base Excess POC ABG pCO2 ABG Hemoglobin ABG Oxyhemoglobin ABG Sodium ABG Chloride ABG Glucose Oxyhemoglobin Sodium Potassium Chloride Carbon Dioxide BUN 40 H Creatinine Glucose 132 H POC Glucose 129 H 131 H Lactic Acid Calcium Phosphorus Magnesium AST ALT Lactate Dehydrogenase Total Bilirubin Direct Bilirubin CK-MB (CK-2) C-Reactive Protein NT-Pro-B Natriuret Pep Total Protein Albumin Arterial Blood Glucose Urine WBC (Auto) Urine Creatinine 02/06/20 02/06/20 02/06/20 11:51 16:28 17:32 WBC RBC Hgb Hct MCHC RDW MCV MCH Lymph % (Auto) [place] % (Auto) [place] # Eos # Lymph # (Auto) [place] # (Auto) Eos # (Auto) Seg Neutrophils % Seg Neuts % (Manual) Baso # (Auto) Lymphocytes % (Manual) Monocytes % (Manual) Eosinophils % (Manual) Basophils % (Manual) Seg Neutrophils # Seg Neutrophils # Man Lymphocytes # (Manual) Monocytes # (Manual) Eosinophils # (Manual) Nucleated RBC % Basophils # (Manual) PT INR APTT Heparin Anti-Xa Level ABG pH POC ABG pO2 ABG pO2 ABG HCO3 ABG O2 Saturation ABG Base Excess POC ABG pCO2 ABG Hemoglobin ABG Oxyhemoglobin ABG Sodium ABG Chloride ABG Glucose Oxyhemoglobin Sodium Potassium Chloride Carbon Dioxide BUN Creatinine Glucose POC Glucose 167 H 129 H Lactic Acid Calcium Phosphorus Magnesium AST 824 H ALT 948 H Lactate Dehydrogenase Total Bilirubin 1.70 H Direct Bilirubin 1.2 H CK-MB (CK-2) C-Reactive Protein NT-Pro-B Natriuret Pep Total Protein Albumin 2.9 L Arterial Blood Glucose Urine WBC (Auto) Urine Creatinine 02/07/20 02/07/20 02/07/20 00:11 04:57 04:57 WBC RBC Hgb 9.2 L Hct 29.7 L MCHC 31 L RDW 20.2 H MCV 80 L MCH 25 L Lymph % (Auto) [place] % (Auto) [place] # Eos # Lymph # (Auto) [place] # (Auto) Eos # (Auto) Seg Neutrophils % Seg Neuts % (Manual) Baso # (Auto) Lymphocytes % (Manual) Monocytes % (Manual) Eosinophils % (Manual) Basophils % (Manual) Seg Neutrophils # Seg Neutrophils # Man Lymphocytes # (Manual) Monocytes # (Manual) Eosinophils # (Manual) Nucleated RBC % Basophils # (Manual) PT INR APTT Heparin Anti-Xa Level ABG pH POC ABG pO2 ABG pO2 ABG HCO3 ABG O2 Saturation ABG Base Excess POC ABG pCO2 ABG Hemoglobin ABG Oxyhemoglobin ABG Sodium ABG Chloride ABG Glucose Oxyhemoglobin Sodium Potassium 3.4 L D Chloride Carbon Dioxide 32 H BUN 39 H Creatinine Glucose 106 H POC Glucose 121 H Lactic Acid Calcium Phosphorus Magnesium AST ALT Lactate Dehydrogenase Total Bilirubin Direct Bilirubin CK-MB (CK-2) C-Reactive Protein NT-Pro-B Natriuret Pep Total Protein Albumin Arterial Blood Glucose Urine WBC (Auto) Urine Creatinine 02/07/20 02/07/20 02/07/20 15:03 15:03 17:11 WBC RBC Hgb Hct MCHC RDW MCV MCH Lymph % (Auto) [place] % (Auto) [place] # Eos # Lymph # (Auto) [place] # (Auto) Eos # (Auto) Seg Neutrophils % Seg Neuts % (Manual) Baso # (Auto) Lymphocytes % (Manual) Monocytes % (Manual) Eosinophils % (Manual) Basophils % (Manual) Seg Neutrophils # Seg Neutrophils # Man Lymphocytes # (Manual) Monocytes # (Manual) Eosinophils # (Manual) Nucleated RBC % Basophils # (Manual) PT 27.0 H INR 2.46 H APTT Heparin Anti-Xa Level ABG pH POC ABG pO2 ABG pO2 ABG HCO3 ABG O2 Saturation ABG Base Excess POC ABG pCO2 ABG Hemoglobin ABG Oxyhemoglobin ABG Sodium ABG Chloride ABG Glucose Oxyhemoglobin Sodium Potassium Chloride Carbon Dioxide BUN Creatinine Glucose POC Glucose 109 H Lactic Acid Calcium Phosphorus Magnesium AST 424 H ALT 796 H Lactate Dehydrogenase Total Bilirubin 1.60 H Direct Bilirubin 1.2 H CK-MB (CK-2) C-Reactive Protein NT-Pro-B Natriuret Pep Total Protein Albumin 2.9 L Arterial Blood Glucose Urine WBC (Auto) Urine Creatinine 02/08/20 02/08/20 02/08/20 12:14 17:44 19:00 WBC RBC Hgb Hct MCHC RDW MCV MCH Lymph % (Auto) [place] % (Auto) [place] # Eos # Lymph # (Auto) [place] # (Auto) Eos # (Auto) Seg Neutrophils % Seg Neuts % (Manual) Baso # (Auto) Lymphocytes % (Manual) Monocytes % (Manual) Eosinophils % (Manual) Basophils % (Manual) Seg Neutrophils # Seg Neutrophils # Man Lymphocytes # (Manual) Monocytes # (Manual) Eosinophils # (Manual) Nucleated RBC % Basophils # (Manual) PT INR APTT Heparin Anti-Xa Level ABG pH POC ABG pO2 ABG pO2 ABG HCO3 ABG O2 Saturation ABG Base Excess POC ABG pCO2 ABG Hemoglobin ABG Oxyhemoglobin ABG Sodium ABG Chloride ABG Glucose Oxyhemoglobin Sodium Potassium Chloride Carbon Dioxide BUN Creatinine Glucose POC Glucose 111 H 107 H Lactic Acid Calcium Phosphorus Magnesium AST 309 H ALT 650 H Lactate Dehydrogenase Total Bilirubin 1.30 H Direct Bilirubin 0.9 H CK-MB (CK-2) C-Reactive Protein NT-Pro-B Natriuret Pep Total Protein 6.2 L Albumin 2.7 L Arterial Blood Glucose Urine WBC (Auto) Urine Creatinine 02/09/20 02/09/20 02/09/20 05:41 12:28 18:07 WBC RBC Hgb Hct MCHC RDW MCV MCH Lymph % (Auto) [place] % (Auto) [place] # Eos # Lymph # (Auto) [place] # (Auto) Eos # (Auto) Seg Neutrophils % Seg Neuts % (Manual) Baso # (Auto) Lymphocytes % (Manual) Monocytes % (Manual) Eosinophils % (Manual) Basophils % (Manual) Seg Neutrophils # Seg Neutrophils # Man Lymphocytes # (Manual) Monocytes # (Manual) Eosinophils # (Manual) Nucleated RBC % Basophils # (Manual) PT INR APTT Heparin Anti-Xa Level ABG pH POC ABG pO2 ABG pO2 ABG HCO3 ABG O2 Saturation ABG Base Excess POC ABG pCO2 ABG Hemoglobin ABG Oxyhemoglobin ABG Sodium ABG Chloride ABG Glucose Oxyhemoglobin Sodium Potassium Chloride Carbon Dioxide BUN Creatinine Glucose POC Glucose 113 H 140 H 143 H Lactic Acid Calcium Phosphorus Magnesium AST ALT Lactate Dehydrogenase Total Bilirubin Direct Bilirubin CK-MB (CK-2) C-Reactive Protein NT-Pro-B Natriuret Pep Total Protein Albumin Arterial Blood Glucose Urine WBC (Auto) Urine Creatinine 02/09/20 02/09/20 02/10/20 21:40 23:45 06:00 WBC RBC Hgb Hct MCHC RDW MCV MCH Lymph % (Auto) [place] % (Auto) [place] # Eos # Lymph # (Auto) [place] # (Auto) Eos # (Auto) Seg Neutrophils % Seg Neuts % (Manual) Baso # (Auto) Lymphocytes % (Manual) Monocytes % (Manual) Eosinophils % (Manual) Basophils % (Manual) Seg Neutrophils # Seg Neutrophils # Man Lymphocytes # (Manual) Monocytes # (Manual) Eosinophils # (Manual) Nucleated RBC % Basophils # (Manual) PT INR APTT Heparin Anti-Xa Level ABG pH POC ABG pO2 ABG pO2 59.8 L ABG HCO3 33.3 H ABG O2 Saturation 88.9 L ABG Base Excess 7.4 H POC ABG pCO2 ABG Hemoglobin 10.4 L ABG Oxyhemoglobin ABG Sodium ABG Chloride ABG Glucose Oxyhemoglobin 86.3 L Sodium Potassium Chloride Carbon Dioxide BUN Creatinine Glucose POC Glucose 127 H 114 H Lactic Acid Calcium Phosphorus Magnesium AST ALT Lactate Dehydrogenase Total Bilirubin Direct Bilirubin CK-MB (CK-2) C-Reactive Protein NT-Pro-B Natriuret Pep Total Protein Albumin Arterial Blood Glucose Urine WBC (Auto) Urine Creatinine 02/10/20 02/10/20 02/10/20 07:40 07:40 13:38 WBC 11.5 H RBC Hgb 10.6 L Hct 34.7 L MCHC 31 L RDW 19.8 H MCV 79 L MCH 24 L Lymph % (Auto) [place] % (Auto) 9.2 H [place] # Eos # Lymph # (Auto) [place] # (Auto) 1.1 H Eos # (Auto) Seg Neutrophils % Seg Neuts % (Manual) Baso # (Auto) Lymphocytes % (Manual) Monocytes % (Manual) Eosinophils % (Manual) Basophils % (Manual) Seg Neutrophils # Seg Neutrophils # Man Lymphocytes # (Manual) Monocytes # (Manual) Eosinophils # (Manual) Nucleated RBC % Basophils # (Manual) PT INR APTT Heparin Anti-Xa Level ABG pH POC ABG pO2 ABG pO2 ABG HCO3 ABG O2 Saturation ABG Base Excess POC ABG pCO2 ABG Hemoglobin ABG Oxyhemoglobin ABG Sodium ABG Chloride ABG Glucose Oxyhemoglobin Sodium 151 H Potassium Chloride 107.2 H Carbon Dioxide 36 H BUN 25 H Creatinine 0.7 L Glucose 114 H POC Glucose 116 H Lactic Acid Calcium Phosphorus Magnesium 2.40 H AST ALT Lactate Dehydrogenase Total Bilirubin Direct Bilirubin CK-MB (CK-2) C-Reactive Protein NT-Pro-B Natriuret Pep Total Protein Albumin Arterial Blood Glucose Urine WBC (Auto) Urine Creatinine 02/10/20 02/11/20 02/11/20 17:44 05:47 12:21 WBC RBC Hgb Hct MCHC RDW MCV MCH Lymph % (Auto) [place] % (Auto) [place] # Eos # Lymph # (Auto) [place] # (Auto) Eos # (Auto) Seg Neutrophils % Seg Neuts % (Manual) Baso # (Auto) Lymphocytes % (Manual) Monocytes % (Manual) Eosinophils % (Manual) Basophils % (Manual) Seg Neutrophils # Seg Neutrophils # Man Lymphocytes # (Manual) Monocytes # (Manual) Eosinophils # (Manual) Nucleated RBC % Basophils # (Manual) PT INR APTT Heparin Anti-Xa Level ABG pH POC ABG pO2 ABG pO2 ABG HCO3 ABG O2 Saturation ABG Base Excess POC ABG pCO2 ABG Hemoglobin ABG Oxyhemoglobin ABG Sodium ABG Chloride ABG Glucose Oxyhemoglobin Sodium Potassium Chloride Carbon Dioxide BUN Creatinine Glucose POC Glucose 139 H 173 H 143 H Lactic Acid Calcium Phosphorus Magnesium AST ALT Lactate Dehydrogenase Total Bilirubin Direct Bilirubin CK-MB (CK-2) C-Reactive Protein NT-Pro-B Natriuret Pep Total Protein Albumin Arterial Blood Glucose Urine WBC (Auto) Urine Creatinine 02/11/20 02/11/20 02/12/20 13:43 14:11 00:15 WBC RBC Hgb Hct MCHC RDW MCV MCH Lymph % (Auto) [place] % (Auto) [place] # Eos # Lymph # (Auto) [place] # (Auto) Eos # (Auto) Seg Neutrophils % Seg Neuts % (Manual) Baso # (Auto) Lymphocytes % (Manual) Monocytes % (Manual) Eosinophils % (Manual) Basophils % (Manual) Seg Neutrophils # Seg Neutrophils # Man Lymphocytes # (Manual) Monocytes # (Manual) Eosinophils # (Manual) Nucleated RBC % Basophils # (Manual) PT INR APTT Heparin Anti-Xa Level ABG pH 7.502 H POC ABG pO2 77.7 L ABG pO2 ABG HCO3 ABG O2 Saturation ABG Base Excess POC ABG pCO2 ABG Hemoglobin 11.1 L ABG Oxyhemoglobin ABG Sodium ABG Chloride 108.0 H ABG Glucose 151 H Oxyhemoglobin Sodium Potassium Chloride Carbon Dioxide BUN Creatinine Glucose POC Glucose 130 H 125 H Lactic Acid Calcium Phosphorus Magnesium AST ALT Lactate Dehydrogenase Total Bilirubin Direct Bilirubin CK-MB (CK-2) C-Reactive Protein NT-Pro-B Natriuret Pep Total Protein Albumin Arterial Blood Glucose 151 H Urine WBC (Auto) Urine Creatinine 02/12/20 02/12/20 02/12/20 04:56 04:56 17:42 WBC RBC Hgb 9.9 L Hct 31.8 L MCHC 31 L RDW 19.4 H MCV 79 L MCH 25 L Lymph % (Auto) [place] % (Auto) 10.3 H [place] # Eos # Lymph # (Auto) [place] # (Auto) 1.0 H Eos # (Auto) Seg Neutrophils % Seg Neuts % (Manual) Baso # (Auto) Lymphocytes % (Manual) Monocytes % (Manual) Eosinophils % (Manual) Basophils % (Manual) Seg Neutrophils # Seg Neutrophils # Man Lymphocytes # (Manual) Monocytes # (Manual) Eosinophils # (Manual) Nucleated RBC % Basophils # (Manual) PT INR APTT Heparin Anti-Xa Level ABG pH POC ABG pO2 ABG pO2 ABG HCO3 ABG O2 Saturation ABG Base Excess POC ABG pCO2 ABG Hemoglobin ABG Oxyhemoglobin ABG Sodium ABG Chloride ABG Glucose Oxyhemoglobin Sodium 149 H Potassium Chloride 108.6 H Carbon Dioxide BUN 28 H Creatinine 0.7 L Glucose 108 H POC Glucose 113 H Lactic Acid Calcium Phosphorus Magnesium AST ALT Lactate Dehydrogenase Total Bilirubin Direct Bilirubin CK-MB (CK-2) C-Reactive Protein NT-Pro-B Natriuret Pep Total Protein Albumin Arterial Blood Glucose Urine WBC (Auto) Urine Creatinine 02/13/20 02/13/20 02/13/20 00:39 05:36 12:25 WBC RBC Hgb Hct MCHC RDW MCV MCH Lymph % (Auto) [place] % (Auto) [place] # Eos # Lymph # (Auto) [place] # (Auto) Eos # (Auto) Seg Neutrophils % Seg Neuts % (Manual) Baso # (Auto) Lymphocytes % (Manual) Monocytes % (Manual) Eosinophils % (Manual) Basophils % (Manual) Seg Neutrophils # Seg Neutrophils # Man Lymphocytes # (Manual) Monocytes # (Manual) Eosinophils # (Manual) Nucleated RBC % Basophils # (Manual) PT INR APTT Heparin Anti-Xa Level ABG pH POC ABG pO2 ABG pO2 ABG HCO3 ABG O2 Saturation ABG Base Excess POC ABG pCO2 ABG Hemoglobin ABG Oxyhemoglobin ABG Sodium ABG Chloride ABG Glucose Oxyhemoglobin Sodium Potassium Chloride Carbon Dioxide BUN Creatinine Glucose POC Glucose 129 H 126 H 129 H Lactic Acid Calcium Phosphorus Magnesium AST ALT Lactate Dehydrogenase Total Bilirubin Direct Bilirubin CK-MB (CK-2) C-Reactive Protein NT-Pro-B Natriuret Pep Total Protein Albumin Arterial Blood Glucose Urine WBC (Auto) Urine Creatinine 02/13/20 02/14/20 02/14/20 17:59 00:15 05:41 WBC RBC Hgb Hct MCHC RDW MCV MCH Lymph % (Auto) [place] % (Auto) [place] # Eos # Lymph # (Auto) [place] # (Auto) Eos # (Auto) Seg Neutrophils % Seg Neuts % (Manual) Baso # (Auto) Lymphocytes % (Manual) Monocytes % (Manual) Eosinophils % (Manual) Basophils % (Manual) Seg Neutrophils # Seg Neutrophils # Man Lymphocytes # (Manual) Monocytes # (Manual) Eosinophils # (Manual) Nucleated RBC % Basophils # (Manual) PT INR APTT Heparin Anti-Xa Level ABG pH POC ABG pO2 ABG pO2 ABG HCO3 ABG O2 Saturation ABG Base Excess POC ABG pCO2 ABG Hemoglobin ABG Oxyhemoglobin ABG Sodium ABG Chloride ABG Glucose Oxyhemoglobin Sodium Potassium Chloride Carbon Dioxide BUN Creatinine Glucose POC Glucose 153 H 130 H 130 H Lactic Acid Calcium Phosphorus Magnesium AST ALT Lactate Dehydrogenase Total Bilirubin Direct Bilirubin CK-MB (CK-2) C-Reactive Protein NT-Pro-B Natriuret Pep Total Protein Albumin Arterial Blood Glucose Urine WBC (Auto) Urine Creatinine 02/14/20 02/15/20 02/15/20 11:32 00:12 05:27 WBC RBC Hgb Hct MCHC RDW MCV MCH Lymph % (Auto) [place] % (Auto) [place] # Eos # Lymph # (Auto) [place] # (Auto) Eos # (Auto) Seg Neutrophils % Seg Neuts % (Manual) Baso # (Auto) Lymphocytes % (Manual) Monocytes % (Manual) Eosinophils % (Manual) Basophils % (Manual) Seg Neutrophils # Seg Neutrophils # Man Lymphocytes # (Manual) Monocytes # (Manual) Eosinophils # (Manual) Nucleated RBC % Basophils # (Manual) PT INR APTT Heparin Anti-Xa Level ABG pH POC ABG pO2 ABG pO2 ABG HCO3 ABG O2 Saturation ABG Base Excess POC ABG pCO2 ABG Hemoglobin ABG Oxyhemoglobin ABG Sodium ABG Chloride ABG Glucose Oxyhemoglobin Sodium Potassium Chloride Carbon Dioxide BUN Creatinine Glucose POC Glucose 157 H 124 H 111 H Lactic Acid Calcium Phosphorus Magnesium AST ALT Lactate Dehydrogenase Total Bilirubin Direct Bilirubin CK-MB (CK-2) C-Reactive Protein NT-Pro-B Natriuret Pep Total Protein Albumin Arterial Blood Glucose Urine WBC (Auto) Urine Creatinine 02/15/20 02/15/20 02/15/20 06:59 06:59 11:14 WBC RBC Hgb 10.4 L Hct 33.7 L MCHC 31 L RDW 19.4 H MCV 80 L MCH 24 L Lymph % (Auto) [place] % (Auto) [place] # Eos # Lymph # (Auto) [place] # (Auto) Eos # (Auto) Seg Neutrophils % Seg Neuts % (Manual) Baso # (Auto) Lymphocytes % (Manual) Monocytes % (Manual) Eosinophils % (Manual) Basophils % (Manual) 2.0 H Seg Neutrophils # Seg Neutrophils # Man Lymphocytes # (Manual) Monocytes # (Manual) Eosinophils # (Manual) Nucleated RBC % 1.0 H Basophils # (Manual) 0.2 H PT INR APTT Heparin Anti-Xa Level ABG pH POC ABG pO2 ABG pO2 ABG HCO3 ABG O2 Saturation ABG Base Excess POC ABG pCO2 ABG Hemoglobin ABG Oxyhemoglobin ABG Sodium ABG Chloride ABG Glucose Oxyhemoglobin Sodium 149 H Potassium Chloride 108.4 H Carbon Dioxide 31 H BUN 40 H Creatinine 0.7 L Glucose 150 H POC Glucose 128 H Lactic Acid Calcium Phosphorus Magnesium AST ALT Lactate Dehydrogenase Total Bilirubin Direct Bilirubin CK-MB (CK-2) C-Reactive Protein NT-Pro-B Natriuret Pep Total Protein Albumin Arterial Blood Glucose Urine WBC (Auto) Urine Creatinine 02/15/20 02/15/20 02/16/20 17:46 23:50 05:03 WBC RBC Hgb Hct MCHC RDW MCV MCH Lymph % (Auto) [place] % (Auto) [place] # Eos # Lymph # (Auto) [place] # (Auto) Eos # (Auto) Seg Neutrophils % Seg Neuts % (Manual) Baso # (Auto) Lymphocytes % (Manual) Monocytes % (Manual) Eosinophils % (Manual) Basophils % (Manual) Seg Neutrophils # Seg Neutrophils # Man Lymphocytes # (Manual) Monocytes # (Manual) Eosinophils # (Manual) Nucleated RBC % Basophils # (Manual) PT INR APTT Heparin Anti-Xa Level ABG pH POC ABG pO2 ABG pO2 ABG HCO3 ABG O2 Saturation ABG Base Excess POC ABG pCO2 ABG Hemoglobin ABG Oxyhemoglobin ABG Sodium ABG Chloride ABG Glucose Oxyhemoglobin Sodium Potassium Chloride Carbon Dioxide BUN Creatinine Glucose POC Glucose 154 H 135 H 148 H Lactic Acid Calcium Phosphorus Magnesium AST ALT Lactate Dehydrogenase Total Bilirubin Direct Bilirubin CK-MB (CK-2) C-Reactive Protein NT-Pro-B Natriuret Pep Total Protein Albumin Arterial Blood Glucose Urine WBC (Auto) Urine Creatinine 02/16/20 02/16/20 02/16/20 07:53 11:28 17:52 WBC RBC Hgb Hct MCHC RDW MCV MCH Lymph % (Auto) [place] % (Auto) [place] # Eos # Lymph # (Auto) [place] # (Auto) Eos # (Auto) Seg Neutrophils % Seg Neuts % (Manual) Baso # (Auto) Lymphocytes % (Manual) Monocytes % (Manual) Eosinophils % (Manual) Basophils % (Manual) Seg Neutrophils # Seg Neutrophils # Man Lymphocytes # (Manual) Monocytes # (Manual) Eosinophils # (Manual) Nucleated RBC % Basophils # (Manual) PT INR APTT Heparin Anti-Xa Level ABG pH POC ABG pO2 ABG pO2 ABG HCO3 ABG O2 Saturation ABG Base Excess POC ABG pCO2 ABG Hemoglobin ABG Oxyhemoglobin ABG Sodium ABG Chloride ABG Glucose Oxyhemoglobin Sodium Potassium Chloride 107.9 H Carbon Dioxide BUN 38 H Creatinine 0.6 L Glucose 151 H POC Glucose 123 H 152 H Lactic Acid Calcium Phosphorus Magnesium AST ALT Lactate Dehydrogenase Total Bilirubin Direct Bilirubin CK-MB (CK-2) C-Reactive Protein NT-Pro-B Natriuret Pep Total Protein Albumin Arterial Blood Glucose Urine WBC (Auto) Urine Creatinine 02/16/20 02/17/20 02/17/20 23:49 06:24 11:36 WBC RBC Hgb Hct MCHC RDW MCV MCH Lymph % (Auto) [place] % (Auto) [place] # Eos # Lymph # (Auto) [place] # (Auto) Eos # (Auto) Seg Neutrophils % Seg Neuts % (Manual) Baso # (Auto) Lymphocytes % (Manual) Monocytes % (Manual) Eosinophils % (Manual) Basophils % (Manual) Seg Neutrophils # Seg Neutrophils # Man Lymphocytes # (Manual) Monocytes # (Manual) Eosinophils # (Manual) Nucleated RBC % Basophils # (Manual) PT INR APTT Heparin Anti-Xa Level ABG pH POC ABG pO2 ABG pO2 ABG HCO3 ABG O2 Saturation ABG Base Excess POC ABG pCO2 ABG Hemoglobin ABG Oxyhemoglobin ABG Sodium ABG Chloride ABG Glucose Oxyhemoglobin Sodium Potassium Chloride Carbon Dioxide BUN Creatinine Glucose POC Glucose 156 H 193 H 162 H Lactic Acid Calcium Phosphorus Magnesium AST ALT Lactate Dehydrogenase Total Bilirubin Direct Bilirubin CK-MB (CK-2) C-Reactive Protein NT-Pro-B Natriuret Pep Total Protein Albumin Arterial Blood Glucose Urine WBC (Auto) Urine Creatinine 02/17/20 02/17/20 02/18/20 17:55 23:28 05:11 WBC RBC Hgb Hct MCHC RDW MCV MCH Lymph % (Auto) [place] % (Auto) [place] # Eos # Lymph # (Auto) [place] # (Auto) Eos # (Auto) Seg Neutrophils % Seg Neuts % (Manual) Baso # (Auto) Lymphocytes % (Manual) Monocytes % (Manual) Eosinophils % (Manual) Basophils % (Manual) Seg Neutrophils # Seg Neutrophils # Man Lymphocytes # (Manual) Monocytes # (Manual) Eosinophils # (Manual) Nucleated RBC % Basophils # (Manual) PT INR APTT Heparin Anti-Xa Level ABG pH POC ABG pO2 ABG pO2 ABG HCO3 ABG O2 Saturation ABG Base Excess POC ABG pCO2 ABG Hemoglobin ABG Oxyhemoglobin ABG Sodium ABG Chloride ABG Glucose Oxyhemoglobin Sodium Potassium Chloride Carbon Dioxide BUN Creatinine Glucose POC Glucose 165 H 146 H 122 H Lactic Acid Calcium Phosphorus Magnesium AST ALT Lactate Dehydrogenase Total Bilirubin Direct Bilirubin CK-MB (CK-2) C-Reactive Protein NT-Pro-B Natriuret Pep Total Protein Albumin Arterial Blood Glucose Urine WBC (Auto) Urine Creatinine 02/18/20 02/18/20 02/19/20 12:24 17:29 00:01 WBC RBC Hgb Hct MCHC RDW MCV MCH Lymph % (Auto) [place] % (Auto) [place] # Eos # Lymph # (Auto) [place] # (Auto) Eos # (Auto) Seg Neutrophils % Seg Neuts % (Manual) Baso # (Auto) Lymphocytes % (Manual) Monocytes % (Manual) Eosinophils % (Manual) Basophils % (Manual) Seg Neutrophils # Seg Neutrophils # Man Lymphocytes # (Manual) Monocytes # (Manual) Eosinophils # (Manual) Nucleated RBC % Basophils # (Manual) PT INR APTT Heparin Anti-Xa Level ABG pH POC ABG pO2 ABG pO2 ABG HCO3 ABG O2 Saturation ABG Base Excess POC ABG pCO2 ABG Hemoglobin ABG Oxyhemoglobin ABG Sodium ABG Chloride ABG Glucose Oxyhemoglobin Sodium Potassium Chloride Carbon Dioxide BUN Creatinine Glucose POC Glucose 162 H 136 H 145 H Lactic Acid Calcium Phosphorus Magnesium AST ALT Lactate Dehydrogenase Total Bilirubin Direct Bilirubin CK-MB (CK-2) C-Reactive Protein NT-Pro-B Natriuret Pep Total Protein Albumin Arterial Blood Glucose Urine WBC (Auto) Urine Creatinine 02/19/20 02/19/20 02/19/20 05:53 11:44 17:32 WBC RBC Hgb Hct MCHC RDW MCV MCH Lymph % (Auto) [place] % (Auto) [place] # Eos # Lymph # (Auto) [place] # (Auto) Eos # (Auto) Seg Neutrophils % Seg Neuts % (Manual) Baso # (Auto) Lymphocytes % (Manual) Monocytes % (Manual) Eosinophils % (Manual) Basophils % (Manual) Seg Neutrophils # Seg Neutrophils # Man Lymphocytes # (Manual) Monocytes # (Manual) Eosinophils # (Manual) Nucleated RBC % Basophils # (Manual) PT INR APTT Heparin Anti-Xa Level ABG pH POC ABG pO2 ABG pO2 ABG HCO3 ABG O2 Saturation ABG Base Excess POC ABG pCO2 ABG Hemoglobin ABG Oxyhemoglobin ABG Sodium ABG Chloride ABG Glucose Oxyhemoglobin Sodium Potassium Chloride Carbon Dioxide BUN Creatinine Glucose POC Glucose 116 H 120 H 154 H Lactic Acid Calcium Phosphorus Magnesium AST ALT Lactate Dehydrogenase Total Bilirubin Direct Bilirubin CK-MB (CK-2) C-Reactive Protein NT-Pro-B Natriuret Pep Total Protein Albumin Arterial Blood Glucose Urine WBC (Auto) Urine Creatinine 02/19/20 02/20/20 02/20/20 23:43 00:24 00:24 WBC RBC Hgb 9.4 L Hct 30.0 L MCHC 31 L RDW 20.4 H MCV 79 L MCH 25 L Lymph % (Auto) [place] % (Auto) 8.5 H [place] # Eos # Lymph # (Auto) [place] # (Auto) Eos # (Auto) Seg Neutrophils % Seg Neuts % (Manual) Baso # (Auto) Lymphocytes % (Manual) Monocytes % (Manual) Eosinophils % (Manual) Basophils % (Manual) Seg Neutrophils # Seg Neutrophils # Man Lymphocytes # (Manual) Monocytes # (Manual) Eosinophils # (Manual) Nucleated RBC % Basophils # (Manual) PT INR APTT Heparin Anti-Xa Level ABG pH POC ABG pO2 ABG pO2 ABG HCO3 ABG O2 Saturation ABG Base Excess POC ABG pCO2 ABG Hemoglobin ABG Oxyhemoglobin ABG Sodium ABG Chloride ABG Glucose Oxyhemoglobin Sodium 147 H Potassium 3.4 L Chloride Carbon Dioxide 31 H BUN 34 H Creatinine 0.5 L Glucose 135 H POC Glucose 122 H Lactic Acid Calcium Phosphorus Magnesium AST ALT Lactate Dehydrogenase Total Bilirubin Direct Bilirubin CK-MB (CK-2) C-Reactive Protein NT-Pro-B Natriuret Pep Total Protein Albumin Arterial Blood Glucose Urine WBC (Auto) Urine Creatinine 02/20/20 02/20/20 02/20/20 06:07 06:45 12:03 WBC RBC Hgb Hct MCHC RDW MCV MCH Lymph % (Auto) [place] % (Auto) [place] # Eos # Lymph # (Auto) [place] # (Auto) Eos # (Auto) Seg Neutrophils % Seg Neuts % (Manual) Baso # (Auto) Lymphocytes % (Manual) Monocytes % (Manual) Eosinophils % (Manual) Basophils % (Manual) Seg Neutrophils # Seg Neutrophils # Man Lymphocytes # (Manual) Monocytes # (Manual) Eosinophils # (Manual) Nucleated RBC % Basophils # (Manual) PT INR APTT Heparin Anti-Xa Level ABG pH 7.461 H POC ABG pO2 ABG pO2 ABG HCO3 33.3 H ABG O2 Saturation ABG Base Excess 8.4 H POC ABG pCO2 ABG Hemoglobin 10.0 L ABG Oxyhemoglobin ABG Sodium ABG Chloride ABG Glucose Oxyhemoglobin 94.1 L Sodium Potassium Chloride Carbon Dioxide BUN Creatinine Glucose POC Glucose 109 H 128 H Lactic Acid Calcium Phosphorus Magnesium AST ALT Lactate Dehydrogenase Total Bilirubin Direct Bilirubin CK-MB (CK-2) C-Reactive Protein NT-Pro-B Natriuret Pep Total Protein Albumin Arterial Blood Glucose Urine WBC (Auto) Urine Creatinine 02/20/20 02/20/20 02/21/20 18:02 23:55 05:42 WBC RBC Hgb Hct MCHC RDW MCV MCH Lymph % (Auto) [place] % (Auto) [place] # Eos # Lymph # (Auto) [place] # (Auto) Eos # (Auto) Seg Neutrophils % Seg Neuts % (Manual) Baso # (Auto) Lymphocytes % (Manual) Monocytes % (Manual) Eosinophils % (Manual) Basophils % (Manual) Seg Neutrophils # Seg Neutrophils # Man Lymphocytes # (Manual) Monocytes # (Manual) Eosinophils # (Manual) Nucleated RBC % Basophils # (Manual) PT INR APTT Heparin Anti-Xa Level ABG pH POC ABG pO2 ABG pO2 ABG HCO3 ABG O2 Saturation ABG Base Excess POC ABG pCO2 ABG Hemoglobin ABG Oxyhemoglobin ABG Sodium ABG Chloride ABG Glucose Oxyhemoglobin Sodium Potassium Chloride Carbon Dioxide BUN Creatinine Glucose POC Glucose 118 H 125 H 127 H Lactic Acid Calcium Phosphorus Magnesium AST ALT Lactate Dehydrogenase Total Bilirubin Direct Bilirubin CK-MB (CK-2) C-Reactive Protein NT-Pro-B Natriuret Pep Total Protein Albumin Arterial Blood Glucose Urine WBC (Auto) Urine Creatinine 02/21/20 02/21/20 02/21/20 12:10 17:35 23:40 WBC RBC Hgb Hct MCHC RDW MCV MCH Lymph % (Auto) [place] % (Auto) [place] # Eos # Lymph # (Auto) [place] # (Auto) Eos # (Auto) Seg Neutrophils % Seg Neuts % (Manual) Baso # (Auto) Lymphocytes % (Manual) Monocytes % (Manual) Eosinophils % (Manual) Basophils % (Manual) Seg Neutrophils # Seg Neutrophils # Man Lymphocytes # (Manual) Monocytes # (Manual) Eosinophils # (Manual) Nucleated RBC % Basophils # (Manual) PT INR APTT Heparin Anti-Xa Level ABG pH POC ABG pO2 ABG pO2 ABG HCO3 ABG O2 Saturation ABG Base Excess POC ABG pCO2 ABG Hemoglobin ABG Oxyhemoglobin ABG Sodium ABG Chloride ABG Glucose Oxyhemoglobin Sodium Potassium Chloride Carbon Dioxide BUN Creatinine Glucose POC Glucose 128 H 113 H 125 H Lactic Acid Calcium Phosphorus Magnesium AST ALT Lactate Dehydrogenase Total Bilirubin Direct Bilirubin CK-MB (CK-2) C-Reactive Protein NT-Pro-B Natriuret Pep Total Protein Albumin Arterial Blood Glucose Urine WBC (Auto) Urine Creatinine 02/22/20 02/22/20 02/22/20 05:57 08:06 08:06 WBC RBC Hgb 10.8 L Hct 35.2 L MCHC 31 L RDW 21.8 H MCV 80 L MCH 25 L Lymph % (Auto) [place] % (Auto) [place] # Eos # Lymph # (Auto) [place] # (Auto) Eos # (Auto) Seg Neutrophils % 71.5 H Seg Neuts % (Manual) Baso # (Auto) Lymphocytes % (Manual) Monocytes % (Manual) Eosinophils % (Manual) Basophils % (Manual) Seg Neutrophils # Seg Neutrophils # Man Lymphocytes # (Manual) Monocytes # (Manual) Eosinophils # (Manual) Nucleated RBC % Basophils # (Manual) PT INR APTT Heparin Anti-Xa Level ABG pH POC ABG pO2 ABG pO2 ABG HCO3 ABG O2 Saturation ABG Base Excess POC ABG pCO2 ABG Hemoglobin ABG Oxyhemoglobin ABG Sodium ABG Chloride ABG Glucose Oxyhemoglobin Sodium 146 H Potassium Chloride Carbon Dioxide 34 H BUN 21 H Creatinine 0.4 L Glucose 149 H POC Glucose 138 H Lactic Acid Calcium Phosphorus Magnesium AST ALT Lactate Dehydrogenase Total Bilirubin Direct Bilirubin CK-MB (CK-2) C-Reactive Protein NT-Pro-B Natriuret Pep Total Protein Albumin Arterial Blood Glucose Urine WBC (Auto) Urine Creatinine 02/22/20 02/22/20 02/22/20 11:47 17:11 23:25 WBC RBC Hgb Hct MCHC RDW MCV MCH Lymph % (Auto) [place] % (Auto) [place] # Eos # Lymph # (Auto) [place] # (Auto) Eos # (Auto) Seg Neutrophils % Seg Neuts % (Manual) Baso # (Auto) Lymphocytes % (Manual) Monocytes % (Manual) Eosinophils % (Manual) Basophils % (Manual) Seg Neutrophils # Seg Neutrophils # Man Lymphocytes # (Manual) Monocytes # (Manual) Eosinophils # (Manual) Nucleated RBC % Basophils # (Manual) PT INR APTT Heparin Anti-Xa Level ABG pH POC ABG pO2 ABG pO2 ABG HCO3 ABG O2 Saturation ABG Base Excess POC ABG pCO2 ABG Hemoglobin ABG Oxyhemoglobin ABG Sodium ABG Chloride ABG Glucose Oxyhemoglobin Sodium Potassium Chloride Carbon Dioxide BUN Creatinine Glucose POC Glucose 149 H 144 H 142 H Lactic Acid Calcium Phosphorus Magnesium AST ALT Lactate Dehydrogenase Total Bilirubin Direct Bilirubin CK-MB (CK-2) C-Reactive Protein NT-Pro-B Natriuret Pep Total Protein Albumin Arterial Blood Glucose Urine WBC (Auto) Urine Creatinine 02/23/20 02/23/20 02/23/20 05:22 11:37 18:14 WBC RBC Hgb Hct MCHC RDW MCV MCH Lymph % (Auto) [place] % (Auto) [place] # Eos # Lymph # (Auto) [place] # (Auto) Eos # (Auto) Seg Neutrophils % Seg Neuts % (Manual) Baso # (Auto) Lymphocytes % (Manual) Monocytes % (Manual) Eosinophils % (Manual) Basophils % (Manual) Seg Neutrophils # Seg Neutrophils # Man Lymphocytes # (Manual) Monocytes # (Manual) Eosinophils # (Manual) Nucleated RBC % Basophils # (Manual) PT INR APTT Heparin Anti-Xa Level ABG pH POC ABG pO2 ABG pO2 ABG HCO3 ABG O2 Saturation ABG Base Excess POC ABG pCO2 ABG Hemoglobin ABG Oxyhemoglobin ABG Sodium ABG Chloride ABG Glucose Oxyhemoglobin Sodium Potassium Chloride Carbon Dioxide BUN Creatinine Glucose POC Glucose 144 H 113 H 127 H Lactic Acid Calcium Phosphorus Magnesium AST ALT Lactate Dehydrogenase Total Bilirubin Direct Bilirubin CK-MB (CK-2) C-Reactive Protein NT-Pro-B Natriuret Pep Total Protein Albumin Arterial Blood Glucose Urine WBC (Auto) Urine Creatinine 02/23/20 02/24/20 02/24/20 23:45 05:50 11:24 WBC RBC Hgb Hct MCHC RDW MCV MCH Lymph % (Auto) [place] % (Auto) [place] # Eos # Lymph # (Auto) [place] # (Auto) Eos # (Auto) Seg Neutrophils % Seg Neuts % (Manual) Baso # (Auto) Lymphocytes % (Manual) Monocytes % (Manual) Eosinophils % (Manual) Basophils % (Manual) Seg Neutrophils # Seg Neutrophils # Man Lymphocytes # (Manual) Monocytes # (Manual) Eosinophils # (Manual) Nucleated RBC % Basophils # (Manual) PT INR APTT Heparin Anti-Xa Level ABG pH POC ABG pO2 ABG pO2 ABG HCO3 ABG O2 Saturation ABG Base Excess POC ABG pCO2 ABG Hemoglobin ABG Oxyhemoglobin ABG Sodium ABG Chloride ABG Glucose Oxyhemoglobin Sodium Potassium Chloride Carbon Dioxide BUN Creatinine Glucose POC Glucose 123 H 117 H 126 H Lactic Acid Calcium Phosphorus Magnesium AST ALT Lactate Dehydrogenase Total Bilirubin Direct Bilirubin CK-MB (CK-2) C-Reactive Protein NT-Pro-B Natriuret Pep Total Protein Albumin Arterial Blood Glucose Urine WBC (Auto) Urine Creatinine 02/24/20 02/24/20 02/25/20 18:35 23:27 05:20 WBC RBC Hgb Hct MCHC RDW MCV MCH Lymph % (Auto) [place] % (Auto) [place] # Eos # Lymph # (Auto) [place] # (Auto) Eos # (Auto) Seg Neutrophils % Seg Neuts % (Manual) Baso # (Auto) Lymphocytes % (Manual) Monocytes % (Manual) Eosinophils % (Manual) Basophils % (Manual) Seg Neutrophils # Seg Neutrophils # Man Lymphocytes # (Manual) Monocytes # (Manual) Eosinophils # (Manual) Nucleated RBC % Basophils # (Manual) PT INR APTT Heparin Anti-Xa Level ABG pH POC ABG pO2 ABG pO2 ABG HCO3 ABG O2 Saturation ABG Base Excess POC ABG pCO2 ABG Hemoglobin ABG Oxyhemoglobin ABG Sodium ABG Chloride ABG Glucose Oxyhemoglobin Sodium Potassium Chloride Carbon Dioxide BUN Creatinine Glucose POC Glucose 121 H 127 H 133 H Lactic Acid Calcium Phosphorus Magnesium AST ALT Lactate Dehydrogenase Total Bilirubin Direct Bilirubin CK-MB (CK-2) C-Reactive Protein NT-Pro-B Natriuret Pep Total Protein Albumin Arterial Blood Glucose Urine WBC (Auto) Urine Creatinine 02/25/20 02/25/20 02/25/20 12:08 17:26 23:33 WBC RBC Hgb Hct MCHC RDW MCV MCH Lymph % (Auto) [place] % (Auto) [place] # Eos # Lymph # (Auto) [place] # (Auto) Eos # (Auto) Seg Neutrophils % Seg Neuts % (Manual) Baso # (Auto) Lymphocytes % (Manual) Monocytes % (Manual) Eosinophils % (Manual) Basophils % (Manual) Seg Neutrophils # Seg Neutrophils # Man Lymphocytes # (Manual) Monocytes # (Manual) Eosinophils # (Manual) Nucleated RBC % Basophils # (Manual) PT INR APTT Heparin Anti-Xa Level ABG pH POC ABG pO2 ABG pO2 ABG HCO3 ABG O2 Saturation ABG Base Excess POC ABG pCO2 ABG Hemoglobin ABG Oxyhemoglobin ABG Sodium ABG Chloride ABG Glucose Oxyhemoglobin Sodium Potassium Chloride Carbon Dioxide BUN Creatinine Glucose POC Glucose 109 H 120 H 120 H Lactic Acid Calcium Phosphorus Magnesium AST ALT Lactate Dehydrogenase Total Bilirubin Direct Bilirubin CK-MB (CK-2) C-Reactive Protein NT-Pro-B Natriuret Pep Total Protein Albumin Arterial Blood Glucose Urine WBC (Auto) Urine Creatinine 02/26/20 02/26/20 02/27/20 05:33 07:50 12:13 WBC RBC Hgb Hct MCHC RDW MCV MCH Lymph % (Auto) [place] % (Auto) [place] # Eos # Lymph # (Auto) [place] # (Auto) Eos # (Auto) Seg Neutrophils % Seg Neuts % (Manual) Baso # (Auto) Lymphocytes % (Manual) Monocytes % (Manual) Eosinophils % (Manual) Basophils % (Manual) Seg Neutrophils # Seg Neutrophils # Man Lymphocytes # (Manual) Monocytes # (Manual) Eosinophils # (Manual) Nucleated RBC % Basophils # (Manual) PT INR APTT Heparin Anti-Xa Level ABG pH POC ABG pO2 ABG pO2 ABG HCO3 ABG O2 Saturation ABG Base Excess POC ABG pCO2 ABG Hemoglobin ABG Oxyhemoglobin ABG Sodium ABG Chloride ABG Glucose Oxyhemoglobin Sodium Potassium Chloride Carbon Dioxide BUN Creatinine Glucose POC Glucose 106 H 130 H Lactic Acid Calcium Phosphorus Magnesium AST ALT Lactate Dehydrogenase Total Bilirubin Direct Bilirubin CK-MB (CK-2) C-Reactive Protein NT-Pro-B Natriuret Pep Total Protein Albumin Arterial Blood Glucose Urine WBC (Auto) > 182.0 H Urine Creatinine 02/27/20 02/27/20 02/28/20 18:20 23:33 05:01 WBC RBC Hgb Hct MCHC RDW MCV MCH Lymph % (Auto) [place] % (Auto) [place] # Eos # Lymph # (Auto) [place] # (Auto) Eos # (Auto) Seg Neutrophils % Seg Neuts % (Manual) Baso # (Auto) Lymphocytes % (Manual) Monocytes % (Manual) Eosinophils % (Manual) Basophils % (Manual) Seg Neutrophils # Seg Neutrophils # Man Lymphocytes # (Manual) Monocytes # (Manual) Eosinophils # (Manual) Nucleated RBC % Basophils # (Manual) PT INR APTT Heparin Anti-Xa Level ABG pH POC ABG pO2 ABG pO2 ABG HCO3 ABG O2 Saturation ABG Base Excess POC ABG pCO2 ABG Hemoglobin ABG Oxyhemoglobin ABG Sodium ABG Chloride ABG Glucose Oxyhemoglobin Sodium Potassium Chloride Carbon Dioxide BUN Creatinine Glucose POC Glucose 109 H 124 H 134 H Lactic Acid Calcium Phosphorus Magnesium AST ALT Lactate Dehydrogenase Total Bilirubin Direct Bilirubin CK-MB (CK-2) C-Reactive Protein NT-Pro-B Natriuret Pep Total Protein Albumin Arterial Blood Glucose Urine WBC (Auto) Urine Creatinine 02/28/20 02/28/20 02/28/20 11:54 18:16 23:03 WBC RBC Hgb Hct MCHC RDW MCV MCH Lymph % (Auto) [place] % (Auto) [place] # Eos # Lymph # (Auto) [place] # (Auto) Eos # (Auto) Seg Neutrophils % Seg Neuts % (Manual) Baso # (Auto) Lymphocytes % (Manual) Monocytes % (Manual) Eosinophils % (Manual) Basophils % (Manual) Seg Neutrophils # Seg Neutrophils # Man Lymphocytes # (Manual) Monocytes # (Manual) Eosinophils # (Manual) Nucleated RBC % Basophils # (Manual) PT INR APTT Heparin Anti-Xa Level ABG pH POC ABG pO2 ABG pO2 ABG HCO3 ABG O2 Saturation ABG Base Excess POC ABG pCO2 ABG Hemoglobin ABG Oxyhemoglobin ABG Sodium ABG Chloride ABG Glucose Oxyhemoglobin Sodium Potassium Chloride Carbon Dioxide BUN Creatinine Glucose POC Glucose 133 H 134 H 146 H Lactic Acid Calcium Phosphorus Magnesium AST ALT Lactate Dehydrogenase Total Bilirubin Direct Bilirubin CK-MB (CK-2) C-Reactive Protein NT-Pro-B Natriuret Pep Total Protein Albumin Arterial Blood Glucose Urine WBC (Auto) Urine Creatinine 02/29/20 02/29/20 02/29/20 05:24 11:34 17:12 WBC RBC Hgb Hct MCHC RDW MCV MCH Lymph % (Auto) [place] % (Auto) [place] # Eos # Lymph # (Auto) [place] # (Auto) Eos # (Auto) Seg Neutrophils % Seg Neuts % (Manual) Baso # (Auto) Lymphocytes % (Manual) Monocytes % (Manual) Eosinophils % (Manual) Basophils % (Manual) Seg Neutrophils # Seg Neutrophils # Man Lymphocytes # (Manual) Monocytes # (Manual) Eosinophils # (Manual) Nucleated RBC % Basophils # (Manual) PT INR APTT Heparin Anti-Xa Level ABG pH POC ABG pO2 ABG pO2 ABG HCO3 ABG O2 Saturation ABG Base Excess POC ABG pCO2 ABG Hemoglobin ABG Oxyhemoglobin ABG Sodium ABG Chloride ABG Glucose Oxyhemoglobin Sodium Potassium Chloride Carbon Dioxide BUN Creatinine Glucose POC Glucose 139 H 141 H 157 H Lactic Acid Calcium Phosphorus Magnesium AST ALT Lactate Dehydrogenase Total Bilirubin Direct Bilirubin CK-MB (CK-2) C-Reactive Protein NT-Pro-B Natriuret Pep Total Protein Albumin Arterial Blood Glucose Urine WBC (Auto) Urine Creatinine 02/29/20 03/01/20 03/01/20 23:35 06:00 11:53 WBC RBC Hgb Hct MCHC RDW MCV MCH Lymph % (Auto) [place] % (Auto) [place] # Eos # Lymph # (Auto) [place] # (Auto) Eos # (Auto) Seg Neutrophils % Seg Neuts % (Manual) Baso # (Auto) Lymphocytes % (Manual) Monocytes % (Manual) Eosinophils % (Manual) Basophils % (Manual) Seg Neutrophils # Seg Neutrophils # Man Lymphocytes # (Manual) Monocytes # (Manual) Eosinophils # (Manual) Nucleated RBC % Basophils # (Manual) PT INR APTT Heparin Anti-Xa Level ABG pH POC ABG pO2 ABG pO2 ABG HCO3 ABG O2 Saturation ABG Base Excess POC ABG pCO2 ABG Hemoglobin ABG Oxyhemoglobin ABG Sodium ABG Chloride ABG Glucose Oxyhemoglobin Sodium Potassium Chloride Carbon Dioxide BUN Creatinine Glucose POC Glucose 120 H 132 H 136 H Lactic Acid Calcium Phosphorus Magnesium AST ALT Lactate Dehydrogenase Total Bilirubin Direct Bilirubin CK-MB (CK-2) C-Reactive Protein NT-Pro-B Natriuret Pep Total Protein Albumin Arterial Blood Glucose Urine WBC (Auto) Urine Creatinine 03/01/20 03/01/20 03/02/20 17:36 23:16 05:12 WBC RBC Hgb Hct MCHC RDW MCV MCH Lymph % (Auto) [place] % (Auto) [place] # Eos # Lymph # (Auto) [place] # (Auto) Eos # (Auto) Seg Neutrophils % Seg Neuts % (Manual) Baso # (Auto) Lymphocytes % (Manual) Monocytes % (Manual) Eosinophils % (Manual) Basophils % (Manual) Seg Neutrophils # Seg Neutrophils # Man Lymphocytes # (Manual) Monocytes # (Manual) Eosinophils # (Manual) Nucleated RBC % Basophils # (Manual) PT INR APTT Heparin Anti-Xa Level ABG pH POC ABG pO2 ABG pO2 ABG HCO3 ABG O2 Saturation ABG Base Excess POC ABG pCO2 ABG Hemoglobin ABG Oxyhemoglobin ABG Sodium ABG Chloride ABG Glucose Oxyhemoglobin Sodium Potassium Chloride Carbon Dioxide BUN Creatinine Glucose POC Glucose 171 H 164 H 176 H Lactic Acid Calcium Phosphorus Magnesium AST ALT Lactate Dehydrogenase Total Bilirubin Direct Bilirubin CK-MB (CK-2) C-Reactive Protein NT-Pro-B Natriuret Pep Total Protein Albumin Arterial Blood Glucose Urine WBC (Auto) Urine Creatinine 03/02/20 03/02/20 03/03/20 11:42 18:01 00:06 WBC RBC Hgb Hct MCHC RDW MCV MCH Lymph % (Auto) [place] % (Auto) [place] # Eos # Lymph # (Auto) [place] # (Auto) Eos # (Auto) Seg Neutrophils % Seg Neuts % (Manual) Baso # (Auto) Lymphocytes % (Manual) Monocytes % (Manual) Eosinophils % (Manual) Basophils % (Manual) Seg Neutrophils # Seg Neutrophils # Man Lymphocytes # (Manual) Monocytes # (Manual) Eosinophils # (Manual) Nucleated RBC % Basophils # (Manual) PT INR APTT Heparin Anti-Xa Level ABG pH POC ABG pO2 ABG pO2 ABG HCO3 ABG O2 Saturation ABG Base Excess POC ABG pCO2 ABG Hemoglobin ABG Oxyhemoglobin ABG Sodium ABG Chloride ABG Glucose Oxyhemoglobin Sodium Potassium Chloride Carbon Dioxide BUN Creatinine Glucose POC Glucose 150 H 156 H 156 H Lactic Acid Calcium Phosphorus Magnesium AST ALT Lactate Dehydrogenase Total Bilirubin Direct Bilirubin CK-MB (CK-2) C-Reactive Protein NT-Pro-B Natriuret Pep Total Protein Albumin Arterial Blood Glucose Urine WBC (Auto) Urine Creatinine 03/03/20 03/03/20 03/03/20 03:31 11:20 16:55 WBC RBC Hgb Hct MCHC RDW MCV MCH Lymph % (Auto) [place] % (Auto) [place] # Eos # Lymph # (Auto) [place] # (Auto) Eos # (Auto) Seg Neutrophils % Seg Neuts % (Manual) Baso # (Auto) Lymphocytes % (Manual) Monocytes % (Manual) Eosinophils % (Manual) Basophils % (Manual) Seg Neutrophils # Seg Neutrophils # Man Lymphocytes # (Manual) Monocytes # (Manual) Eosinophils # (Manual) Nucleated RBC % Basophils # (Manual) PT INR APTT Heparin Anti-Xa Level ABG pH POC ABG pO2 ABG pO2 ABG HCO3 ABG O2 Saturation ABG Base Excess POC ABG pCO2 ABG Hemoglobin ABG Oxyhemoglobin ABG Sodium ABG Chloride ABG Glucose Oxyhemoglobin Sodium Potassium Chloride Carbon Dioxide BUN Creatinine Glucose POC Glucose 164 H 125 H 211 H Lactic Acid Calcium Phosphorus Magnesium AST ALT Lactate Dehydrogenase Total Bilirubin Direct Bilirubin CK-MB (CK-2) C-Reactive Protein NT-Pro-B Natriuret Pep Total Protein Albumin Arterial Blood Glucose Urine WBC (Auto) Urine Creatinine 03/04/20 03/04/20 03/04/20 00:29 05:20 12:09 WBC RBC Hgb Hct MCHC RDW MCV MCH Lymph % (Auto) [place] % (Auto) [place] # Eos # Lymph # (Auto) [place] # (Auto) Eos # (Auto) Seg Neutrophils % Seg Neuts % (Manual) Baso # (Auto) Lymphocytes % (Manual) Monocytes % (Manual) Eosinophils % (Manual) Basophils % (Manual) Seg Neutrophils # Seg Neutrophils # Man Lymphocytes # (Manual) Monocytes # (Manual) Eosinophils # (Manual) Nucleated RBC % Basophils # (Manual) PT INR APTT Heparin Anti-Xa Level ABG pH POC ABG pO2 ABG pO2 ABG HCO3 ABG O2 Saturation ABG Base Excess POC ABG pCO2 ABG Hemoglobin ABG Oxyhemoglobin ABG Sodium ABG Chloride ABG Glucose Oxyhemoglobin Sodium Potassium Chloride Carbon Dioxide BUN Creatinine Glucose POC Glucose 169 H 154 H 197 H Lactic Acid Calcium Phosphorus Magnesium AST ALT Lactate Dehydrogenase Total Bilirubin Direct Bilirubin CK-MB (CK-2) C-Reactive Protein NT-Pro-B Natriuret Pep Total Protein Albumin Arterial Blood Glucose Urine WBC (Auto) Urine Creatinine 03/04/20 03/04/20 03/04/20 18:00 20:38 20:38 WBC RBC Hgb 10.1 L Hct 32.7 L MCHC 31 L RDW 24.7 H MCV 79 L MCH 24 L Lymph % (Auto) [place] % (Auto) 8.9 H [place] # Eos # Lymph # (Auto) [place] # (Auto) Eos # (Auto) Seg Neutrophils % Seg Neuts % (Manual) Baso # (Auto) Lymphocytes % (Manual) Monocytes % (Manual) Eosinophils % (Manual) Basophils % (Manual) Seg Neutrophils # Seg Neutrophils # Man Lymphocytes # (Manual) Monocytes # (Manual) Eosinophils # (Manual) Nucleated RBC % Basophils # (Manual) PT INR APTT Heparin Anti-Xa Level ABG pH POC ABG pO2 ABG pO2 ABG HCO3 ABG O2 Saturation ABG Base Excess POC ABG pCO2 ABG Hemoglobin ABG Oxyhemoglobin ABG Sodium ABG Chloride ABG Glucose Oxyhemoglobin Sodium 136 L Potassium Chloride Carbon Dioxide BUN 25 H Creatinine 0.5 L Glucose 148 H POC Glucose 146 H Lactic Acid Calcium Phosphorus Magnesium AST ALT Lactate Dehydrogenase Total Bilirubin Direct Bilirubin CK-MB (CK-2) C-Reactive Protein NT-Pro-B Natriuret Pep Total Protein Albumin Arterial Blood Glucose Urine WBC (Auto) Urine Creatinine 03/04/20 03/05/20 03/05/20 23:17 05:44 11:32 WBC RBC Hgb Hct MCHC RDW MCV MCH Lymph % (Auto) [place] % (Auto) [place] # Eos # Lymph # (Auto) [place] # (Auto) Eos # (Auto) Seg Neutrophils % Seg Neuts % (Manual) Baso # (Auto) Lymphocytes % (Manual) Monocytes % (Manual) Eosinophils % (Manual) Basophils % (Manual) Seg Neutrophils # Seg Neutrophils # Man Lymphocytes # (Manual) Monocytes # (Manual) Eosinophils # (Manual) Nucleated RBC % Basophils # (Manual) PT INR APTT Heparin Anti-Xa Level ABG pH POC ABG pO2 ABG pO2 ABG HCO3 ABG O2 Saturation ABG Base Excess POC ABG pCO2 ABG Hemoglobin ABG Oxyhemoglobin ABG Sodium ABG Chloride ABG Glucose Oxyhemoglobin Sodium Potassium Chloride Carbon Dioxide BUN Creatinine Glucose POC Glucose 139 H 155 H 124 H Lactic Acid Calcium Phosphorus Magnesium AST ALT Lactate Dehydrogenase Total Bilirubin Direct Bilirubin CK-MB (CK-2) C-Reactive Protein NT-Pro-B Natriuret Pep Total Protein Albumin Arterial Blood Glucose Urine WBC (Auto) Urine Creatinine 03/05/20 03/05/20 03/06/20 17:45 23:18 12:16 WBC RBC Hgb Hct MCHC RDW MCV MCH Lymph % (Auto) [place] % (Auto) [place] # Eos # Lymph # (Auto) [place] # (Auto) Eos # (Auto) Seg Neutrophils % Seg Neuts % (Manual) Baso # (Auto) Lymphocytes % (Manual) Monocytes % (Manual) Eosinophils % (Manual) Basophils % (Manual) Seg Neutrophils # Seg Neutrophils # Man Lymphocytes # (Manual) Monocytes # (Manual) Eosinophils # (Manual) Nucleated RBC % Basophils # (Manual) PT INR APTT Heparin Anti-Xa Level ABG pH POC ABG pO2 ABG pO2 ABG HCO3 ABG O2 Saturation ABG Base Excess POC ABG pCO2 ABG Hemoglobin ABG Oxyhemoglobin ABG Sodium ABG Chloride ABG Glucose Oxyhemoglobin Sodium Potassium Chloride Carbon Dioxide BUN Creatinine Glucose POC Glucose 171 H 114 H 155 H Lactic Acid Calcium Phosphorus Magnesium AST ALT Lactate Dehydrogenase Total Bilirubin Direct Bilirubin CK-MB (CK-2) C-Reactive Protein NT-Pro-B Natriuret Pep Total Protein Albumin Arterial Blood Glucose Urine WBC (Auto) Urine Creatinine 03/06/20 03/06/20 03/07/20 17:27 23:48 06:02 WBC RBC Hgb Hct MCHC RDW MCV MCH Lymph % (Auto) [place] % (Auto) [place] # Eos # Lymph # (Auto) [place] # (Auto) Eos # (Auto) Seg Neutrophils % Seg Neuts % (Manual) Baso # (Auto) Lymphocytes % (Manual) Monocytes % (Manual) Eosinophils % (Manual) Basophils % (Manual) Seg Neutrophils # Seg Neutrophils # Man Lymphocytes # (Manual) Monocytes # (Manual) Eosinophils # (Manual) Nucleated RBC % Basophils # (Manual) PT INR APTT Heparin Anti-Xa Level ABG pH POC ABG pO2 ABG pO2 ABG HCO3 ABG O2 Saturation ABG Base Excess POC ABG pCO2 ABG Hemoglobin ABG Oxyhemoglobin ABG Sodium ABG Chloride ABG Glucose Oxyhemoglobin Sodium Potassium Chloride Carbon Dioxide BUN Creatinine Glucose POC Glucose 116 H 142 H 161 H Lactic Acid Calcium Phosphorus Magnesium AST ALT Lactate Dehydrogenase Total Bilirubin Direct Bilirubin CK-MB (CK-2) C-Reactive Protein NT-Pro-B Natriuret Pep Total Protein Albumin Arterial Blood Glucose Urine WBC (Auto) Urine Creatinine 03/07/20 03/08/20 03/08/20 11:36 05:18 11:51 WBC RBC Hgb Hct MCHC RDW MCV MCH Lymph % (Auto) [place] % (Auto) [place] # Eos # Lymph # (Auto) [place] # (Auto) Eos # (Auto) Seg Neutrophils % Seg Neuts % (Manual) Baso # (Auto) Lymphocytes % (Manual) Monocytes % (Manual) Eosinophils % (Manual) Basophils % (Manual) Seg Neutrophils # Seg Neutrophils # Man Lymphocytes # (Manual) Monocytes # (Manual) Eosinophils # (Manual) Nucleated RBC % Basophils # (Manual) PT INR APTT Heparin Anti-Xa Level ABG pH POC ABG pO2 ABG pO2 ABG HCO3 ABG O2 Saturation ABG Base Excess POC ABG pCO2 ABG Hemoglobin ABG Oxyhemoglobin ABG Sodium ABG Chloride ABG Glucose Oxyhemoglobin Sodium Potassium Chloride Carbon Dioxide BUN Creatinine Glucose POC Glucose 127 H 142 H 135 H Lactic Acid Calcium Phosphorus Magnesium AST ALT Lactate Dehydrogenase Total Bilirubin Direct Bilirubin CK-MB (CK-2) C-Reactive Protein NT-Pro-B Natriuret Pep Total Protein Albumin Arterial Blood Glucose Urine WBC (Auto) Urine Creatinine 03/08/20 03/08/20 03/09/20 18:14 23:45 05:36 WBC RBC Hgb Hct MCHC RDW MCV MCH Lymph % (Auto) [place] % (Auto) [place] # Eos # Lymph # (Auto) [place] # (Auto) Eos # (Auto) Seg Neutrophils % Seg Neuts % (Manual) Baso # (Auto) Lymphocytes % (Manual) Monocytes % (Manual) Eosinophils % (Manual) Basophils % (Manual) Seg Neutrophils # Seg Neutrophils # Man Lymphocytes # (Manual) Monocytes # (Manual) Eosinophils # (Manual) Nucleated RBC % Basophils # (Manual) PT INR APTT Heparin Anti-Xa Level ABG pH POC ABG pO2 ABG pO2 ABG HCO3 ABG O2 Saturation ABG Base Excess POC ABG pCO2 ABG Hemoglobin ABG Oxyhemoglobin ABG Sodium ABG Chloride ABG Glucose Oxyhemoglobin Sodium Potassium Chloride Carbon Dioxide BUN Creatinine Glucose POC Glucose 125 H 143 H 158 H Lactic Acid Calcium Phosphorus Magnesium AST ALT Lactate Dehydrogenase Total Bilirubin Direct Bilirubin CK-MB (CK-2) C-Reactive Protein NT-Pro-B Natriuret Pep Total Protein Albumin Arterial Blood Glucose Urine WBC (Auto) Urine Creatinine 03/09/20 03/09/20 03/09/20 06:32 06:32 11:34 WBC RBC Hgb 9.8 L Hct 31.6 L MCHC 31 L RDW 23.1 H MCV 80 L MCH 25 L Lymph % (Auto) 35.1 H [place] % (Auto) 11.4 H [place] # Eos # Lymph # (Auto) [place] # (Auto) Eos # (Auto) Seg Neutrophils % Seg Neuts % (Manual) Baso # (Auto) Lymphocytes % (Manual) Monocytes % (Manual) Eosinophils % (Manual) Basophils % (Manual) Seg Neutrophils # Seg Neutrophils # Man Lymphocytes # (Manual) Monocytes # (Manual) Eosinophils # (Manual) Nucleated RBC % Basophils # (Manual) PT INR APTT Heparin Anti-Xa Level ABG pH POC ABG pO2 ABG pO2 ABG HCO3 ABG O2 Saturation ABG Base Excess POC ABG pCO2 ABG Hemoglobin ABG Oxyhemoglobin ABG Sodium ABG Chloride ABG Glucose Oxyhemoglobin Sodium 136 L Potassium Chloride Carbon Dioxide BUN 25 H Creatinine 0.6 L Glucose 170 H POC Glucose 140 H Lactic Acid Calcium Phosphorus Magnesium AST ALT Lactate Dehydrogenase Total Bilirubin Direct Bilirubin CK-MB (CK-2) C-Reactive Protein NT-Pro-B Natriuret Pep Total Protein Albumin Arterial Blood Glucose Urine WBC (Auto) Urine Creatinine 03/09/20 03/09/20 03/10/20 18:10 23:11 05:41 WBC RBC Hgb Hct MCHC RDW MCV MCH Lymph % (Auto) [place] % (Auto) [place] # Eos # Lymph # (Auto) [place] # (Auto) Eos # (Auto) Seg Neutrophils % Seg Neuts % (Manual) Baso # (Auto) Lymphocytes % (Manual) Monocytes % (Manual) Eosinophils % (Manual) Basophils % (Manual) Seg Neutrophils # Seg Neutrophils # Man Lymphocytes # (Manual) Monocytes # (Manual) Eosinophils # (Manual) Nucleated RBC % Basophils # (Manual) PT INR APTT Heparin Anti-Xa Level ABG pH POC ABG pO2 ABG pO2 ABG HCO3 ABG O2 Saturation ABG Base Excess POC ABG pCO2 ABG Hemoglobin ABG Oxyhemoglobin ABG Sodium ABG Chloride ABG Glucose Oxyhemoglobin Sodium Potassium Chloride Carbon Dioxide BUN Creatinine Glucose POC Glucose 153 H 111 H 138 H Lactic Acid Calcium Phosphorus Magnesium AST ALT Lactate Dehydrogenase Total Bilirubin Direct Bilirubin CK-MB (CK-2) C-Reactive Protein NT-Pro-B Natriuret Pep Total Protein Albumin Arterial Blood Glucose Urine WBC (Auto) Urine Creatinine 03/10/20 03/10/20 03/10/20 11:15 17:58 23:36 WBC RBC Hgb Hct MCHC RDW MCV MCH Lymph % (Auto) [place] % (Auto) [place] # Eos # Lymph # (Auto) [place] # (Auto) Eos # (Auto) Seg Neutrophils % Seg Neuts % (Manual) Baso # (Auto) Lymphocytes % (Manual) Monocytes % (Manual) Eosinophils % (Manual) Basophils % (Manual) Seg Neutrophils # Seg Neutrophils # Man Lymphocytes # (Manual) Monocytes # (Manual) Eosinophils # (Manual) Nucleated RBC % Basophils # (Manual) PT INR APTT Heparin Anti-Xa Level ABG pH POC ABG pO2 ABG pO2 ABG HCO3 ABG O2 Saturation ABG Base Excess POC ABG pCO2 ABG Hemoglobin ABG Oxyhemoglobin ABG Sodium ABG Chloride ABG Glucose Oxyhemoglobin Sodium Potassium Chloride Carbon Dioxide BUN Creatinine Glucose POC Glucose 141 H 149 H 148 H Lactic Acid Calcium Phosphorus Magnesium AST ALT Lactate Dehydrogenase Total Bilirubin Direct Bilirubin CK-MB (CK-2) C-Reactive Protein NT-Pro-B Natriuret Pep Total Protein Albumin Arterial Blood Glucose Urine WBC (Auto) Urine Creatinine 03/11/20 03/11/20 03/12/20 05:55 17:43 04:45 WBC RBC Hgb Hct MCHC RDW MCV MCH Lymph % (Auto) [place] % (Auto) [place] # Eos # Lymph # (Auto) [place] # (Auto) Eos # (Auto) Seg Neutrophils % Seg Neuts % (Manual) Baso # (Auto) Lymphocytes % (Manual) Monocytes % (Manual) Eosinophils % (Manual) Basophils % (Manual) Seg Neutrophils # Seg Neutrophils # Man Lymphocytes # (Manual) Monocytes # (Manual) Eosinophils # (Manual) Nucleated RBC % Basophils # (Manual) PT INR APTT Heparin Anti-Xa Level ABG pH 7.454 H POC ABG pO2 69.2 L ABG pO2 ABG HCO3 ABG O2 Saturation ABG Base Excess POC ABG pCO2 ABG Hemoglobin 11.2 L ABG Oxyhemoglobin ABG Sodium 134.7 L ABG Chloride ABG Glucose 151 H Oxyhemoglobin Sodium Potassium Chloride Carbon Dioxide BUN Creatinine Glucose POC Glucose 181 H 107 H Lactic Acid Calcium Phosphorus Magnesium AST ALT Lactate Dehydrogenase Total Bilirubin Direct Bilirubin CK-MB (CK-2) C-Reactive Protein NT-Pro-B Natriuret Pep Total Protein Albumin Arterial Blood Glucose 151 H Urine WBC (Auto) Urine Creatinine 03/12/20 03/12/20 03/12/20 05:36 11:36 17:40 WBC RBC Hgb Hct MCHC RDW MCV MCH Lymph % (Auto) [place] % (Auto) [place] # Eos # Lymph # (Auto) [place] # (Auto) Eos # (Auto) Seg Neutrophils % Seg Neuts % (Manual) Baso # (Auto) Lymphocytes % (Manual) Monocytes % (Manual) Eosinophils % (Manual) Basophils % (Manual) Seg Neutrophils # Seg Neutrophils # Man Lymphocytes # (Manual) Monocytes # (Manual) Eosinophils # (Manual) Nucleated RBC % Basophils # (Manual) PT INR APTT Heparin Anti-Xa Level ABG pH POC ABG pO2 ABG pO2 ABG HCO3 ABG O2 Saturation ABG Base Excess POC ABG pCO2 ABG Hemoglobin ABG Oxyhemoglobin ABG Sodium ABG Chloride ABG Glucose Oxyhemoglobin Sodium Potassium Chloride Carbon Dioxide BUN Creatinine Glucose POC Glucose 137 H 122 H 116 H Lactic Acid Calcium Phosphorus Magnesium AST ALT Lactate Dehydrogenase Total Bilirubin Direct Bilirubin CK-MB (CK-2) C-Reactive Protein NT-Pro-B Natriuret Pep Total Protein Albumin Arterial Blood Glucose Urine WBC (Auto) Urine Creatinine 03/12/20 03/13/20 03/13/20 23:17 05:47 11:35 WBC RBC Hgb Hct MCHC RDW MCV MCH Lymph % (Auto) [place] % (Auto) [place] # Eos # Lymph # (Auto) [place] # (Auto) Eos # (Auto) Seg Neutrophils % Seg Neuts % (Manual) Baso # (Auto) Lymphocytes % (Manual) Monocytes % (Manual) Eosinophils % (Manual) Basophils % (Manual) Seg Neutrophils # Seg Neutrophils # Man Lymphocytes # (Manual) Monocytes # (Manual) Eosinophils # (Manual) Nucleated RBC % Basophils # (Manual) PT INR APTT Heparin Anti-Xa Level ABG pH POC ABG pO2 ABG pO2 ABG HCO3 ABG O2 Saturation ABG Base Excess POC ABG pCO2 ABG Hemoglobin ABG Oxyhemoglobin ABG Sodium ABG Chloride ABG Glucose Oxyhemoglobin Sodium Potassium Chloride Carbon Dioxide BUN Creatinine Glucose POC Glucose 118 H 142 H 146 H Lactic Acid Calcium Phosphorus Magnesium AST ALT Lactate Dehydrogenase Total Bilirubin Direct Bilirubin CK-MB (CK-2) C-Reactive Protein NT-Pro-B Natriuret Pep Total Protein Albumin Arterial Blood Glucose Urine WBC (Auto) Urine Creatinine 03/13/20 03/13/20 03/14/20 17:25 23:27 05:04 WBC RBC Hgb Hct MCHC RDW MCV MCH Lymph % (Auto) [place] % (Auto) [place] # Eos # Lymph # (Auto) [place] # (Auto) Eos # (Auto) Seg Neutrophils % Seg Neuts % (Manual) Baso # (Auto) Lymphocytes % (Manual) Monocytes % (Manual) Eosinophils % (Manual) Basophils % (Manual) Seg Neutrophils # Seg Neutrophils # Man Lymphocytes # (Manual) Monocytes # (Manual) Eosinophils # (Manual) Nucleated RBC % Basophils # (Manual) PT INR APTT Heparin Anti-Xa Level ABG pH POC ABG pO2 ABG pO2 ABG HCO3 ABG O2 Saturation ABG Base Excess POC ABG pCO2 ABG Hemoglobin ABG Oxyhemoglobin ABG Sodium ABG Chloride ABG Glucose Oxyhemoglobin Sodium Potassium Chloride Carbon Dioxide BUN Creatinine Glucose POC Glucose 138 H 160 H 159 H Lactic Acid Calcium Phosphorus Magnesium AST ALT Lactate Dehydrogenase Total Bilirubin Direct Bilirubin CK-MB (CK-2) C-Reactive Protein NT-Pro-B Natriuret Pep Total Protein Albumin Arterial Blood Glucose Urine WBC (Auto) Urine Creatinine 03/14/20 03/14/20 03/15/20 11:19 16:18 00:18 WBC RBC Hgb Hct MCHC RDW MCV MCH Lymph % (Auto) [place] % (Auto) [place] # Eos # Lymph # (Auto) [place] # (Auto) Eos # (Auto) Seg Neutrophils % Seg Neuts % (Manual) Baso # (Auto) Lymphocytes % (Manual) Monocytes % (Manual) Eosinophils % (Manual) Basophils % (Manual) Seg Neutrophils # Seg Neutrophils # Man Lymphocytes # (Manual) Monocytes # (Manual) Eosinophils # (Manual) Nucleated RBC % Basophils # (Manual) PT INR APTT Heparin Anti-Xa Level ABG pH POC ABG pO2 ABG pO2 ABG HCO3 ABG O2 Saturation ABG Base Excess POC ABG pCO2 ABG Hemoglobin ABG Oxyhemoglobin ABG Sodium ABG Chloride ABG Glucose Oxyhemoglobin Sodium Potassium Chloride Carbon Dioxide BUN Creatinine Glucose POC Glucose 130 H 170 H 125 H Lactic Acid Calcium Phosphorus Magnesium AST ALT Lactate Dehydrogenase Total Bilirubin Direct Bilirubin CK-MB (CK-2) C-Reactive Protein NT-Pro-B Natriuret Pep Total Protein Albumin Arterial Blood Glucose Urine WBC (Auto) Urine Creatinine 03/15/20 03/15/20 03/15/20 04:05 04:05 05:36 WBC RBC Hgb 10.0 L Hct 31.6 L MCHC RDW 22.4 H MCV 77 L MCH 24 L Lymph % (Auto) 36.2 H [place] % (Auto) 9.4 H [place] # Eos # Lymph # (Auto) [place] # (Auto) Eos # (Auto) Seg Neutrophils % Seg Neuts % (Manual) Baso # (Auto) Lymphocytes % (Manual) Monocytes % (Manual) Eosinophils % (Manual) Basophils % (Manual) Seg Neutrophils # Seg Neutrophils # Man Lymphocytes # (Manual) Monocytes # (Manual) Eosinophils # (Manual) Nucleated RBC % Basophils # (Manual) PT INR APTT Heparin Anti-Xa Level ABG pH POC ABG pO2 ABG pO2 ABG HCO3 ABG O2 Saturation ABG Base Excess POC ABG pCO2 ABG Hemoglobin ABG Oxyhemoglobin ABG Sodium ABG Chloride ABG Glucose Oxyhemoglobin Sodium Potassium Chloride Carbon Dioxide 32 H BUN Creatinine 0.5 L Glucose 141 H POC Glucose 130 H Lactic Acid Calcium Phosphorus Magnesium AST ALT Lactate Dehydrogenase Total Bilirubin Direct Bilirubin CK-MB (CK-2) C-Reactive Protein NT-Pro-B Natriuret Pep Total Protein Albumin Arterial Blood Glucose Urine WBC (Auto) Urine Creatinine 03/15/20 03/15/20 03/15/20 11:41 17:38 23:16 WBC RBC Hgb Hct MCHC RDW MCV MCH Lymph % (Auto) [place] % (Auto) [place] # Eos # Lymph # (Auto) [place] # (Auto) Eos # (Auto) Seg Neutrophils % Seg Neuts % (Manual) Baso # (Auto) Lymphocytes % (Manual) Monocytes % (Manual) Eosinophils % (Manual) Basophils % (Manual) Seg Neutrophils # Seg Neutrophils # Man Lymphocytes # (Manual) Monocytes # (Manual) Eosinophils # (Manual) Nucleated RBC % Basophils # (Manual) PT INR APTT Heparin Anti-Xa Level ABG pH POC ABG pO2 ABG pO2 ABG HCO3 ABG O2 Saturation ABG Base Excess POC ABG pCO2 ABG Hemoglobin ABG Oxyhemoglobin ABG Sodium ABG Chloride ABG Glucose Oxyhemoglobin Sodium Potassium Chloride Carbon Dioxide BUN Creatinine Glucose POC Glucose 114 H 144 H 116 H Lactic Acid Calcium Phosphorus Magnesium AST ALT Lactate Dehydrogenase Total Bilirubin Direct Bilirubin CK-MB (CK-2) C-Reactive Protein NT-Pro-B Natriuret Pep Total Protein Albumin Arterial Blood Glucose Urine WBC (Auto) Urine Creatinine 03/16/20 03/16/20 03/16/20 05:39 13:16 18:29 WBC RBC Hgb Hct MCHC RDW MCV MCH Lymph % (Auto) [place] % (Auto) [place] # Eos # Lymph # (Auto) [place] # (Auto) Eos # (Auto) Seg Neutrophils % Seg Neuts % (Manual) Baso # (Auto) Lymphocytes % (Manual) Monocytes % (Manual) Eosinophils % (Manual) Basophils % (Manual) Seg Neutrophils # Seg Neutrophils # Man Lymphocytes # (Manual) Monocytes # (Manual) Eosinophils # (Manual) Nucleated RBC % Basophils # (Manual) PT INR APTT Heparin Anti-Xa Level ABG pH POC ABG pO2 ABG pO2 ABG HCO3 ABG O2 Saturation ABG Base Excess POC ABG pCO2 ABG Hemoglobin ABG Oxyhemoglobin ABG Sodium ABG Chloride ABG Glucose Oxyhemoglobin Sodium Potassium Chloride Carbon Dioxide BUN Creatinine Glucose POC Glucose 125 H 153 H 135 H Lactic Acid Calcium Phosphorus Magnesium AST ALT Lactate Dehydrogenase Total Bilirubin Direct Bilirubin CK-MB (CK-2) C-Reactive Protein NT-Pro-B Natriuret Pep Total Protein Albumin Arterial Blood Glucose Urine WBC (Auto) Urine Creatinine 03/16/20 03/17/20 03/17/20 23:32 05:50 11:38 WBC RBC Hgb Hct MCHC RDW MCV MCH Lymph % (Auto) [place] % (Auto) [place] # Eos # Lymph # (Auto) [place] # (Auto) Eos # (Auto) Seg Neutrophils % Seg Neuts % (Manual) Baso # (Auto) Lymphocytes % (Manual) Monocytes % (Manual) Eosinophils % (Manual) Basophils % (Manual) Seg Neutrophils # Seg Neutrophils # Man Lymphocytes # (Manual) Monocytes # (Manual) Eosinophils # (Manual) Nucleated RBC % Basophils # (Manual) PT INR APTT Heparin Anti-Xa Level ABG pH POC ABG pO2 ABG pO2 ABG HCO3 ABG O2 Saturation ABG Base Excess POC ABG pCO2 ABG Hemoglobin ABG Oxyhemoglobin ABG Sodium ABG Chloride ABG Glucose Oxyhemoglobin Sodium Potassium Chloride Carbon Dioxide BUN Creatinine Glucose POC Glucose 137 H 160 H 134 H Lactic Acid Calcium Phosphorus Magnesium AST ALT Lactate Dehydrogenase Total Bilirubin Direct Bilirubin CK-MB (CK-2) C-Reactive Protein NT-Pro-B Natriuret Pep Total Protein Albumin Arterial Blood Glucose Urine WBC (Auto) Urine Creatinine 03/17/20 03/17/20 03/18/20 16:59 23:29 05:39 WBC RBC Hgb Hct MCHC RDW MCV MCH Lymph % (Auto) [place] % (Auto) [place] # Eos # Lymph # (Auto) [place] # (Auto) Eos # (Auto) Seg Neutrophils % Seg Neuts % (Manual) Baso # (Auto) Lymphocytes % (Manual) Monocytes % (Manual) Eosinophils % (Manual) Basophils % (Manual) Seg Neutrophils # Seg Neutrophils # Man Lymphocytes # (Manual) Monocytes # (Manual) Eosinophils # (Manual) Nucleated RBC % Basophils # (Manual) PT INR APTT Heparin Anti-Xa Level ABG pH POC ABG pO2 ABG pO2 ABG HCO3 ABG O2 Saturation ABG Base Excess POC ABG pCO2 ABG Hemoglobin ABG Oxyhemoglobin ABG Sodium ABG Chloride ABG Glucose Oxyhemoglobin Sodium Potassium Chloride Carbon Dioxide BUN Creatinine Glucose POC Glucose 120 H 141 H 181 H Lactic Acid Calcium Phosphorus Magnesium AST ALT Lactate Dehydrogenase Total Bilirubin Direct Bilirubin CK-MB (CK-2) C-Reactive Protein NT-Pro-B Natriuret Pep Total Protein Albumin Arterial Blood Glucose Urine WBC (Auto) Urine Creatinine 03/18/20 11:18 WBC RBC Hgb Hct MCHC RDW MCV MCH Lymph % (Auto) [place] % (Auto) [place] # Eos # Lymph # (Auto) [place] # (Auto) Eos # (Auto) Seg Neutrophils % Seg Neuts % (Manual) Baso # (Auto) Lymphocytes % (Manual) Monocytes % (Manual) Eosinophils % (Manual) Basophils % (Manual) Seg Neutrophils # Seg Neutrophils # Man Lymphocytes # (Manual) Monocytes # (Manual) Eosinophils # (Manual) Nucleated RBC % Basophils # (Manual) PT INR APTT Heparin Anti-Xa Level ABG pH POC ABG pO2 ABG pO2 ABG HCO3 ABG O2 Saturation ABG Base Excess POC ABG pCO2 ABG Hemoglobin ABG Oxyhemoglobin ABG Sodium ABG Chloride ABG Glucose Oxyhemoglobin Sodium Potassium Chloride Carbon Dioxide BUN Creatinine Glucose POC Glucose 142 H Lactic Acid Calcium Phosphorus Magnesium AST ALT Lactate Dehydrogenase Total Bilirubin Direct Bilirubin CK-MB (CK-2) C-Reactive Protein NT-Pro-B Natriuret Pep Total Protein Albumin Arterial Blood Glucose Urine WBC (Auto) Urine Creatinine Allied health notes reviewed: RT
[2020-03-18 16:51] LABS: Alanine Aminotransferase 22 units/L (7-56); Albumin 2.8 g/dL (3.9-5); Blood Urea Nitrogen 24 mg/dL (9-20); Calcium 8.8 mg/dL (8.4-10.2); Hemolysis Index 26
[2020-03-18 16:52] LABS: BUN/Creatinine Ratio 40
[2020-03-18] MEDS: DIGOXIN 0.125 MG TAB PO SCH (16:52)
[2020-03-18] MEDS ORDERED: SODIUM POLYSTYRENE 15 GM/60 ML ORAL LIQD PO ONE (20:03)
[2020-03-18] MEDS: ACETAMINOPHEN 325 MG/10.15 ML ORAL LIQD UNIT DOSE FEEDTUBE PRN (21:00)
[2020-03-18] MEDS: POLYETHYLENE GLYCOL 3350 17 GM POWDER PO SCH (21:00)
[2020-03-18] MEDS: TAMSULOSIN 0.4 MG CAP PO SCH (21:00)
[2020-03-19] MEDS: INSULIN REGULAR, HUMAN 100 UNIT/ML 3ML VIAL SUB-Q SCH ×4 (00:03→18:03)
[2020-03-19] MEDS: ACETAMINOPHEN 325 MG/10.15 ML ORAL LIQD UNIT DOSE FEEDTUBE PRN (02:31)
[2020-03-19 08:55] LABS: Blood Urea Nitrogen 22 mg/dL (9-20); Calcium 8.7 mg/dL (8.4-10.2); Hemolysis Index 38
[2020-03-19 09:00] LABS: BUN/Creatinine Ratio 44
--- NOTE | 2020-03-19 09:30 | Progress Note ---
Assessment and Plan Assessment and plan : Persistent A. fib. Currently lenient rate controlled on digoxin and metoprolol Amiodarone has been discontinued secondary to elevated liver enzymes Patient currently anticoagulated with Eliquis On as needed IV metoprolol Ischemic Cardiomyopathy, resolving re-echo this presentation reports an LVEF 40-45%. Previous echo 08/2018: LVEF 20-25%. Continue medical therapy Hx of CAD [facility] 12/2018: mild in-stent restenosis. No significant residual disease. Patient on beta-hebert Eliquis and Plavix. No statins for now secondary to elevated liver enzymes can can consider once clinical picture improves Multifocal pneumonia Followed by pulmonology negative COVID-19 test x 3 Respiratory failure Patient currently status post tracheostomy and ventilator History of PE/DVT on Eliquis currently Subjective Date of service: 03/19/20 Principal diagnosis: Ac hypoxemic resp failure; Pneumonia; PUI COVID-19; CHF; COPD; HTN Interval history: Patient currently on tracheostomy. On ventilator. Objective Vital Signs Temp Pulse Resp Resp BP Pulse Ox Pulse Ox 03/19/20 08:12 107 H 97/67 100 100 03/19/20 06:31 107 H 14 96/62 98 03/19/20 06:00 100 H 16 96/62 98 03/19/20 05:55 114 H 93/78 97 03/19/20 05:31 125 H 16 97/68 96 03/19/20 05:00 128 H 22 93/78 97 03/19/20 04:31 129 H 27 H 89/68 100 03/19/20 04:19 118 H 03/19/20 04:00 97.7 F 116 H 21 16 97/68 97 03/19/20 03:31 119 H 15 89/68 100 03/19/20 03:00 109 H 17 89/68 98 03/19/20 02:31 103 H 19 89/68 100 03/19/20 02:00 114 H 19 89/68 95 03/19/20 01:31 106 H 15 88/67 99 03/19/20 01:00 95 H 17 86/60 97 03/19/20 00:31 99 H 22 122/94 98 03/19/20 00:27 98 03/19/20 00:02 124 H 122/94 98 03/19/20 00:01 124 H 24 122/94 86 03/19/20 00:00 97.8 F 25 H 03/18/20 23:31 115 H 15 86/53 99 03/18/20 23:00 101 H 17 86/53 97 03/18/20 22:31 100 H 15 85/63 98 03/18/20 22:02 103 H 85/63 03/18/20 22:00 117 H 14 85/63 99 03/18/20 21:31 111 H 21 87/62 98 03/18/20 21:16 99 03/18/20 21:00 124 H 16 90/64 99 03/18/20 20:51 109 H 97/47 100 03/18/20 20:31 99 H 17 97/47 99 03/18/20 20:29 120 H 22 97/47 99 03/18/20 20:01 106 H 19 97/47 100 03/18/20 20:00 97.3 F L 20 03/18/20 19:49 98 H 03/18/20 19:31 110 H 22 104/75 03/18/20 19:01 122 H 24 104/75 100 03/18/20 18:31 121 H 29 H 105/73 93 03/18/20 18:01 120 H 28 H 104/70 98 03/18/20 17:31 112 H 19 104/70 99 03/18/20 17:00 113 H 19 104/70 99 03/18/20 16:53 112 H 100/79 100 100 03/18/20 16:52 119 H 03/18/20 16:45 122 H 23 100/79 99 03/18/20 16:31 121 H 24 100/79 100 03/18/20 16:15 122 H 17 100/79 100 03/18/20 16:01 122 H 32 H 100/79 99 03/18/20 16:00 98.1 F 100 03/18/20 15:45 120 H 17 103/79 99 03/18/20 15:31 122 H 26 H 103/79 100 03/18/20 15:15 116 H 23 103/79 100 03/18/20 15:00 110 H 18 103/79 97 03/18/20 14:45 100 H 15 105/81 96 03/18/20 14:31 124 H 21 105/81 100 03/18/20 14:15 125 H 22 105/81 98 03/18/20 14:00 121 H 18 105/81 98 03/18/20 13:45 134 H 24 109/83 99 03/18/20 13:31 119 H 30 H 109/83 100 03/18/20 13:15 128 H 27 H 109/83 100 03/18/20 13:01 128 H 25 H 67/40 100 03/18/20 12:45 112 H 22 108/74 100 03/18/20 12:30 128 H 32 H 108/74 100 03/18/20 12:15 126 H 22 99/78 100 03/18/20 12:01 124 H 25 H 99/78 100 03/18/20 12:00 98.2 F 99 03/18/20 11:45 115 H 19 90/71 100 03/18/20 11:30 123 H 28 H 90/71 99 03/18/20 11:15 122 H 13 93/69 03/18/20 11:00 123 H 24 93/69 100 03/18/20 10:45 117 H 19 105/69 100 03/18/20 10:31 104 H 15 105/69 98 03/18/20 10:15 107 H 25 H 111/78 96 03/18/20 10:01 99 H 18 111/78 99 03/18/20 09:45 107 H 18 99/76 99 03/18/20 09:39 113 H 99/76 03/18/20 09:31 131 H 32 H 99/76 99 - Physical Examination Narrative exam: General: Comfortable no acute distress tracheostomy connected to vent. HEENT: NAD Neck: neck supple Cardiac: S1-S2 heard faint 2/6 systolic murmur Lungs: Normal basilar breath sounds heard Neuro: Grossly Intact Abdomen: Soft Extremities: No edema noted General: Other (s/p trach) HEENT: Positive: PERRL Neck: Positive: neck supple, Other (s/p trach) Neuro: Positive: Weakness Abdomen: Positive: Soft Skin: Positive: Clear Extremities: Absent: edema - Labs and Meds Cardiac Enzymes 03/18/20 Range/Units 15:34 AST 23 (5-40) units/L Comprehensive Metabolic Panel 03/18/20 03/19/20 Range/Units 15:34 07:50 Sodium 132 L 136 L (137-145) mmol/L Potassium 5.4 H D 3.9 D (3.6-5.0) mmol/L Chloride 96.8 L 97.3 L (98-107) mmol/L Carbon Dioxide 26 31 H (22-30) mmol/L BUN 24 H 22 H (9-20) mg/dL Creatinine 0.6 L 0.5 L (0.8-1.3) mg/dL Glucose 164 H 160 H (75-100) mg/dL Calcium 8.8 8.7 (8.4-10.2) mg/dL AST 23 (5-40) units/L ALT 22 (7-56) units/L Alkaline Phosphatase 96 (35-129) units/L Total Protein 6.2 L (6.3-8.2) g/dL Albumin 2.8 L (3.9-5) g/dL - Allied health notes Allied health notes reviewed: RT
[2020-03-19] MEDS: APIXABAN 5 MG TAB PO SCH ×2 (09:39→23:26)
[2020-03-19] MEDS: METOPROLOL TARTRATE 25 MG TAB FEEDTUBE SCH ×2 (09:39→23:21)
[2020-03-19] MEDS: LANSOPRAZOLE 30 MG SOLUTAB FEEDTUBE SCH (09:40)
[2020-03-19] MEDS: CLOPIDOGREL 75 MG TAB PO SCH (09:40)
[2020-03-19] MEDS: MIDODRINE 5 MG TAB PO SCH ×3 (09:40→18:04)
[2020-03-19] MEDS: QUEtiapine 100 MG TAB PO SCH ×2 (09:40→23:25)
[2020-03-19] MEDS: GLYCOPYRROLATE 2 MG TAB PO SCH ×3 (09:40→23:26)
[2020-03-19] MEDS: DOCUSATE SODIUM 100 MG/10 ML ORAL LIQD FEEDTUBE SCH ×2 (09:52→23:21)
--- NOTE | 2020-03-19 11:55 | Progress Note ---
Assessment and Plan Assessment and plan: --Ischemic cardiomyopathy Cardiology is following, status post cardiac catheterization on 01/22/2020; Co ronary artery disease status post PCI and stent to the LAD Continue current cardiac medications --Acute on chronic hypoxemic respiratory failure; Patient has tracheostomy on vent Continue nebulizers, , trach care Wean off ventilator as tolerated Pulmonary critical following --Acute exacerbation of COPD; Patient is currently on ventilatory support Continue nebulizers --Left lower lobe PE; Continue Eliquis, ventilatory support --Acute right lower extremity DVT; Patient is on Eliquis --Bilateral multifocal pneumonia/community-acquired Completed antibiotics, improved --Severe sepsis/bilateral pneumonia: Completed antibiotics COVID-19 test; 11/24/2019; negative 11/26/2019; negative 12/29/2019: Negative --Paroxysmal atrial fibrillation; Now rate controlled, Stable on amiodarone and Eliquis --Acute on chronic combined systolic and diastolic congestive heart failure Ischemic cardiomyopathy left ventricular ejection fraction 40 to 45% --H/o CAD [[facility] 12/2018 in-stent restenosis] Patient is stable on current cardiac medications --Hypertensive emergency; present on admission Reasonable blood pressures, continue current antihypertensives As needed medications --History of alcohol abuse/alcohol withdrawal; Was on CIWA protocol, now stable --Oropharyngeal dysphagia; status post PEG placement Continue PEG feeds per protocol --History of partial small bowel obstruction; resolved Surgery evaluated. --Obesity; BMI 34.7 Patient needs weight reduction when medically stable --Severe protein calorie malnutrition/hypoalbuminemia Nutrition supplements, dietitian following, PEG feeds --DVT prophylaxis;Eliquis --Full CODE STATUS 01/05; Pt stable. NGT output 650cc over 24 hours, bilious. No f/c, WBC within normal limits. cont NG suction and cont to hold TF 01/06: Abs series - mild improvement in small bowel distension in mid abdomen, normal gas/stool pattern in colon. NGT in duodenum. Continue to hold tube feeding, maintain NG tube with low intermittent suction. Patient's was updated by phone. Continue to provide supportive care and monitor clinically. 01/07: +BMs today and NGT/PEG output appears more gastric today. Plan to clamp NGT, if tolerates start TF from tomorrow. cont supportive care. 01/08; Gastric output decreased over last 24 hours. NGT has been clamped x 24 hours. plan to dc NGT and to start TTF via PEG - vital HF @10cc/hr 01/09: clinically stable, tolerating TF. monitor BMP, wean off from vent as tolerated clinically stable, on TF. wean off vent as tolerated 01/11: wean off from vent, cont to monitor, on TF 01/12: wean off from vent, cont to monitor, on TF. need placement - unfunded 01/13; remains on ventilatory support, unable to wean, DC planning possible LTAC, unfunded 01/14; patient of ventilatory support, T-piece tracheostomy on oxygen, LTAC placement per case management 01/16; tracheostomy, patient on full ventilatory support, wean off vent support as tolerated, pending LTAC placement, social financial issues 01/17; awaiting LTAC placement, insurance and financial issues 01/18; patient tracheostomy remains on ventilatory support 01/19; wean off ventilator as tolerated 01/20; remains on ventilatory support, patient complains of intermittent chest pain, cardiology recommend left heart catheterization tomorrow 01/22/2020. Patient for left heart catheterization per cardiology. Patient remains on AC mode ventilation rate 12, tidal volume 450, FiO2 30% and PEEP of 6. Continue tracheostomy care, airway management and secretion control. 01/23/2020. Cardiac catheterization completed yesterday revealed widely patent previous LAD stent with mild nonobstructive atherosclerosis of the right mid coronary artery and rest of the coronary system was without significant atherosclerosis. The left ventricle ejection fraction was mildly impaired at 40 to 45%. There was some hypokinesis of the basal inferior wall suggestive of previous or recent infarct. Continue GDMT for coronary artery disease including beta blockers, topical nitrates, statin and Plavix. Continue Eliquis for paroxysmal atrial fibrillation and PE. Continue diuresis with Lasix and follow electrolytes closely. Continue Robinul and scopolamine for secretion control and daily SBT per pulmonary. Also, continue bronchodilators and routine trach care/airway management. T-piece trials per pulmonary as tolerated. 01/24/2020. Recent cardiac catheterization has documented widely patent left anterior descending artery stent with minimal nonobstructive diffuse coronary artery disease in the rest of the coronary arteries. Evidence of ischemic cardiomyopathy with inferior wall hypokinesis. Continue with guideline directed medical therapy. Continue Robinul and scopolamine for secretion control and daily SBT per pulmonary. Continue bronchodilators and routine trach care/airway management. T-piece trials per pulmonary as tolerated. 01/25/2020. Continue with guideline directed medical therapy for systolic heart failure. Cardiac catheterization revealed evidence of ischemic cardiomyopathy with inferior wall hypokinesis (EF 40-45%). Patient currently on T-piece with oxygen 10 L/min FiO2 40%. Continue Robinul and scopolamine for secretion control. Continue bronchodilators and routine trach care/airway management. 02/03: Mental status more improved, agree with Reglan will change to IV scheduled for two days, no new vomiting. Pseudomonas A in Sputum. 02/04: Clinical improving, amiodarone discontinued due to LFTs, continue Metoprolol.d/w GI, started on Golytely to clear impaction. Started on dialy Miralax. 02/05: Continue supportive care. Noted bowel movement, continue bowel regimen 02/06: Cardiology input noted beta-hebert increased for better suppression of atrial fibrillation. Continue to monitor, no other evidence of nausea vomiting noted. Discussed with respiratory therapist will be continued on weaning protocol with pressure support today. 02/07: Patient successfully weaned off the ventilator, No new complaints, c ontinue monitoring, BM noted, Discussed with pulmonary, 02/08; tracheostomy on T-piece, patient is more alert and awake today 02/09; clinically no change, tracheostomy on vent 02/10; tracheostomy on vent, full CODE STATUS, poor prognosis, 02/11; clinically no change, remains on ventilatory support, full CODE STATUS, discussed with spouse Ms. Paulette Araiza extensively today 02/12. Patient resting comfortably no change on vent with tracheostomy. Still unable to wean. Some increased crackles today. 02/13: Still unable to wean from the vent. Overall prognosis remains extremely poor. 02/14; remains critically ill, tracheostomy on vent, unable to wean, poor prognosis, full CODE STATUS 02/15; patient is more alert and awake today, chronic tracheostomy on T-piece, continue current management DC planning per case management. Disposition very difficult due to lack of resources and insurance 02/17/2020. Patient remains on mechanical ventilation and tolerating PSV trials. Patient currently with PSV 10/6 at FiO2 of 30%. 02/18/2020. Patient currently on PSV 10/6 with FiO2 of 40%. 40% T-piece trial was attempted but patient unable to tolerate due to saturations dropping into the 80s and heart rate in the 140s. Therefore, patient placed back on PSV. Continue anticoagulation with Eliquis. Continue secretion control with Robinul and scopolamine. Continue rate control with metoprolol and digoxin. 02/19/2020. Patient currently on PSV 10/6 with FiO2 of 30%. T-piece trial attempted yesterday but patient did not tolerate. Continue T-piece trials as tolerated. Continue anticoagulation with Eliquis. Continue secretion control with Robinul and scopolamine. Continue rate control with metoprolol and digoxin. Continue to follow with case management with regards to discharge pl anning. 02/20/2020. Patient continues to tolerate PSV 10/6. Continue rate control with metoprolol and digoxin. Amiodarone discontinued due to elevated liver transaminases. Eliquis for anticoagulation acute PE/DVT. 02/21/2020. Patient continues to tolerate PSV 10/6 at FiO2 of 30%. Continue ra te control with metoprolol and digoxin. Amiodarone discontinued due to elevated liver transaminases. Eliquis for anticoagulation acute PE/DVT. 02/22/2020. Patient continues to tolerate PSV 10/6 at FiO2 of 30%. Continue rate control with metoprolol and digoxin. Amiodarone discontinued due to el evated liver transaminases. Eliquis for anticoagulation acute PE/DVT. 02/22. Awake and alert on vent. Vitals stable. 02/23. Awake and alert on vent. Requests for ice. Vitals stable 02/24. Trach to vent. Continue rate control with metoprolol and digoxin. Amiodarone discontinued due to elevated liver transaminases. Eliquis for anticoagulation of acute PE/DVT. Transferred to [facility] 02/25. Seen in [facility]. Requests for ice. RN to provide a cube of ice. Vitals stable. 02/26. No change in medical condition. Slightly tachy this AM. Will monitor. 02/27. Cardiology started him on a beta hebert. Still on vent 02/28. Discharge planning as per electric range assembler. Still on vent. Tachycardia noted. 03/01/2020; patient is tachycardic, still on the vent. Discharge management as per electric range assembler. 03/02/2020; patient is on a vent and trach. Discharge is per electric range assembler. 03/03/2012; patient is on vent and trach patient is alert and oriented. 03/04/2020; patient is on vent and trach, patient is alert. 03/05/2020; patient is on vent and trach, patient is alert. 03/06/2020 tracheostomy on vent , patient is alert, possible LTAC placement 03/08/2020 remains on ventilatory support; wean off the vent, pending LTAC placement 03/09/2020; clinically no change, tracheostomy on ventilatory support, unable to wean, awaiting LTAC placement, social issues 03/10/2020; clinically no change; patient alert and awake; 03/11/2020; patient is more alert and awake asking for some water, remains on ventilatory support, awaiting LTAC placement 03/12/2020; clinically no change, tracheostomy on ventilatory support, unable to wean, awaiting LTAC placement 03/13 patient on vent via tracheostomy, alert and oriented and offers no complaints except some neck pain. Denies any chest pain or shortness of breath or palpitations. All interdisciplinary notes reviewed 03/14/2020. Patient currently on AC mode ventilation rate of 12 tidal volume 450 FiO2 30% and a PEEP of 6. Patient is s/p tracheostomy on ventilatory support awaiting LTAC placement. 03/15/2020. Patient remains on AC mode ventilation rate 12, tidal volume 450, FiO2 30% and PEEP of 6. Patient failed CPAP trials. Unfortunately, Patient is uninsured and his only d/c option is to return home with family. 03/16/20. Patient remains on AC mode ventilation rate 12, tidal volume 450, FiO2 30% and PEEP of 6. Cont. PSV as figueroa. Patient is uninsured and his only d/c option is to return home with family. 03/17/2020. Patient remains on AC mode ventilation rate 12, tidal volume 450, FiO2 30% and PEEP of 6. Cont. PSV as figueroa. Patient is uninsured and his only d/c option is to return home with family. 03/18/2020. Patient remains on same vent settings the past few days. Continue pressure support ventilation trials as tolerated. Supportive care 03/19/2020. Continue current vent per pulmonary recommendations. Pressure support ventilation trials as tolerated. Continue trach care, secretion control and airway management. Mobility protocols for pressure ulcer prophylaxis. The high probability of a clinically significant, sudden or life threatening deterioration of the [Respiratory, cardiovascular & neurological] system(s) required my full and direct attention, intervention and personal management. The aggregate critical care time was [32] minutes without overlap. Time includes spent on [x] Data Review and interpretation [x] Patient assessment and monitoring of vital signs [x] Documentation [x] Medication orders and management History Interval history: Patient is a 64-year-old male with known history of hypertension, COPD, history of coronary artery disease, CHF with ejection fraction of 20 to 25% 2019 was admitted through emergency room with worsening shortness of breath Patient was found to be hypoxic and in respiratory distress. Patient was placed on CPAP in route to the hospital. Patient remained hypoxic on CPAP BiPAP ,subsequently was intubated. Patient also had bilateral multifocal pneumonia managed appropriately with antibiotics sputum cultures positive for Pseudomonas, ID treated with cefepime and Vanco. His hospital course became complicated with acute PE, DVT, paroxysmal atrial fib - placed on chronic anticoagulation. Patient was difficult to wean off, status post trach and PEG, remains on mechanical ventilation with trach tube. He then developed partial small bowel obstruction evaluated by general surgeon symptom improved with medical Mx, patient was briefly weaned off ventilatory support however, was in respiratory failure requiring full ventilatory support. Cardiac catheterization on 01/22/2020. Patient remains on mechanical ventilatory support. Patients still with elevated heart rate of Afib with RVR continue amiodarone and metoprolol. LVEF 40 to 45% on Eliquis FOR THE Acute PE/DVT. Partial SBO vs ileus- KUB is negative. Brief history; Patient is a 64-year-old male with known history of hypertension, COPD, history of coronary artery disease, CHF with ejection fraction of 20 to 25% 2019 was admitted through emergency room with worsening shortness of breath Patient was found to be hypoxic and in respiratory distress. Patient was placed on CPAP in route to the hospital. Patient remained hypoxic on CPAP BiPAP ,subsequently was intubated, vent dependent. Unable to wean subsequently had tracheostomy and PEG placement, patient also has acute PE DVT and paroxysmal atrial fibrillation on chronic anticoagulation. Patient is vent dependent, social issues, awaiting LTAC placement Hospitalist Physical - Constitutional Vitals: Temp Pulse Resp BP Pulse Ox 97.7 F 109 H 17 92/61 100 03/19/20 08:00 03/19/20 11:01 03/19/20 11:01 03/19/20 11:01 03/19/20 10:01 General appearance: Present: no acute distress, well-nourished, other (Tracheostomy on vent) - EENT Eyes: Present: PERRL, EOM intact ENT: hearing intact, clear oral mucosa, dentition normal - Neck Neck: Present: supple, normal ROM - Respiratory Respiratory effort: normal Respiratory: bilateral: CTA - Cardiovascular Rhythm: regular Heart Sounds: Present: S1 & S2. Absent: gallop, rub - Extremities Extremities: no ischemia, No edema, Full ROM - Abdominal General gastrointestinal: soft, non-tender, non-distended, normal bowel sounds - Integumentary Integumentary: Present: clear, warm, dry - Neurologic Neurologic: CNII-XII intact, moves all extremities HEART Score - HEART Score Troponin: Troponin T < 0.010 ng/mL (0.00-0.029) 01/19/20 01:35 Results - Labs CBC & Chem 7: 03/15/20 04:05 03/19/20 07:50 Labs: Laboratory Last Values WBC 6.0 K/mm3 (4.5-11.0) 03/15/20 04:05 RBC 4.09 M/mm3 (3.65-5.03) 03/15/20 04:05 Hgb 10.0 gm/dl (11.8-15.2) L 03/15/20 04:05 Hct 31.6 % (35.5-45.6) L 03/15/20 04:05 MCV 77 fl (84-94) L 03/15/20 04:05 MCH 24 pg (28-32) L 03/15/20 04:05 MCHC 32 % (32-34) 03/15/20 04:05 RDW 22.4 % (13.2-15.2) H 03/15/20 04:05 Plt Count 205 K/mm3 (140-440) 03/15/20 04:05 Lymph % (Auto) 36.2 % (13.4-35.0) H 03/15/20 04:05 [place] % (Auto) 9.4 % (0.0-7.3) H 03/15/20 04:05 Eos % (Auto) 2.8 % (0.0-4.3) 03/15/20 04:05 Baso % (Auto) 0.6 % (0.0-1.8) 03/15/20 04:05 Lymph # (Auto) 2.2 K/mm3 (1.2-5.4) 03/15/20 04:05 [place] # (Auto) 0.6 K/mm3 (0.0-0.8) 03/15/20 04:05 Eos # (Auto) 0.2 K/mm3 (0.0-0.4) 03/15/20 04:05 Baso # (Auto) 0.0 K/mm3 (0.0-0.1) 03/15/20 04:05 Add Manual Diff Complete 02/15/20 06:59 Total Counted 100 02/15/20 06:59 Seg Neutrophils % 51.0 % (40.0-70.0) 03/15/20 04:05 Seg Neuts % (Manual) 58.0 % (40.0-70.0) 02/15/20 06:59 Band Neutrophils % 0 % 02/15/20 06:59 Lymphocytes % (Manual) 34.0 % (13.4-35.0) 02/15/20 06:59 Reactive Lymphs % (Man) 1.0 % 02/15/20 06:59 Monocytes % (Manual) 4.0 % (0.0-7.3) 02/15/20 06:59 Eosinophils % (Manual) 0 % (0.0-4.3) 02/15/20 06:59 Basophils % (Manual) 2.0 % (0.0-1.8) H 02/15/20 06:59 Metamyelocytes % 1.0 % 02/15/20 06:59 Myelocytes % 0 % 02/15/20 06:59 Promyelocytes % 0 % 02/15/20 06:59 Blast Cells % 0 % 02/15/20 06:59 Nucleated RBC % 1.0 % (0.0-0.9) H 02/15/20 06:59 Seg Neutrophils # 3.0 K/mm3 (1.8-7.7) 03/15/20 04:05 Seg Neutrophils # Man 5.9 K/mm3 (1.8-7.7) 02/15/20 06:59 Band Neutrophils # 0.0 K/mm3 02/15/20 06:59 Lymphocytes # (Manual) 3.5 K/mm3 (1.2-5.4) 02/15/20 06:59 Abs React Lymphs (Man) 0.1 K/mm3 02/15/20 06:59 Monocytes # (Manual) 0.4 K/mm3 (0.0-0.8) 02/15/20 06:59 Eosinophils # (Manual) 0.0 K/mm3 (0.0-0.4) 02/15/20 06:59 Basophils # (Manual) 0.2 K/mm3 (0.0-0.1) H 02/15/20 06:59 Metamyelocytes # 0.1 K/mm3 02/15/20 06:59 Myelocytes # 0.0 K/mm3 02/15/20 06:59 Promyelocytes # 0.0 K/mm3 02/15/20 06:59 Blast Cells # 0.0 K/mm3 02/15/20 06:59 WBC Morphology Not Reportable 02/15/20 06:59 Hypersegmented Neuts Not Reportable 02/15/20 06:59 Hyposegmented Neuts Not Reportable 02/15/20 06:59 Hypogranular Neuts Not Reportable 02/15/20 06:59 Smudge Cells Not Reportable 02/15/20 06:59 Toxic Granulation Not Reportable 02/15/20 06:59 Toxic Vacuolation Not Reportable 02/15/20 06:59 Dohle Bodies Not Reportable 02/15/20 06:59 Pelger-Huet Anomaly Not Reportable 02/15/20 06:59 Hector Rods Not Reportable 02/15/20 06:59 Platelet Estimate Consistent w auto 02/15/20 06:59 Clumped Platelets Not Reportable 02/15/20 06:59 Plt Clumps, EDTA Not Reportable 02/15/20 06:59 Large Platelets Not Reportable 02/15/20 06:59 Giant Platelets Not Reportable 02/15/20 06:59 Platelet Satelliting Not Reportable 02/15/20 06:59 Plt Morphology Comment Giant platelets 02/15/20 06:59 RBC Morphology Not Reportable 02/15/20 06:59 Dimorphic RBCs Not Reportable 02/15/20 06:59 Polychromasia Not Reportable 02/15/20 06:59 Hypochromasia 1+ 02/15/20 06:59 Poikilocytosis Few 02/15/20 06:59 Anisocytosis 1+ 02/15/20 06:59 Microcytosis Not Reportable 02/15/20 06:59 Macrocytosis Not Reportable 02/15/20 06:59 Spherocytes Not Reportable 02/15/20 06:59 Pappenheimer Bodies Not Reportable 02/15/20 06:59 Sickle Cells Not Reportable 02/15/20 06:59 Target Cells 1+ 02/15/20 06:59 Tear Drop Cells Few 02/15/20 06:59 Ovalocytes Not Reportable 02/15/20 06:59 Helmet Cells Not Reportable 02/15/20 06:59 Gottlieb-[place] Bodies Not Reportable 02/15/20 06:59 [place] Rings Not Reportable 02/15/20 06:59 [place] Cells Not Reportable 02/15/20 06:59 Bite Cells Not Reportable 02/15/20 06:59 Crenated Cell Not Reportable 02/15/20 06:59 Elliptocytes Few 02/15/20 06:59 Acanthocytes (Spur) Not Reportable 02/15/20 06:59 Rouleaux Not Reportable 02/15/20 06:59 Hemoglobin C Crystals Not Reportable 02/15/20 06:59 Schistocytes Not Reportable 02/15/20 06:59 Malaria parasites Not Reportable 02/15/20 06:59 Clifford Bodies Not Reportable 02/15/20 06:59 Hem Pathologist Commnt No 02/15/20 06:59 PT 27.0 Sec. (12.2-14.9) H 02/07/20 15:03 INR 2.46 (0.87-1.13) H 02/07/20 15:03 APTT 31.5 Sec. (24.2-36.6) 01/22/20 09:58 Heparin Anti-Xa Level 1.34 U.I./ml (0.3-0.7) H 01/22/20 04:45 ABG pH 7.454 (7.320-7.450) H 03/12/20 04:45 POC ABG pCO2 45.6 mmHg (32.0-48.0) 03/12/20 04:45 ABG pCO2 47.8 mm Hg 02/20/20 06:45 POC ABG pO2 69.2 mmHg (83-108) L 03/12/20 04:45 ABG pO2 88.7 mm Hg (80.0-90.0) 02/20/20 06:45 POC ABG HCO3 31.3 03/12/20 04:45 ABG HCO3 33.3 mmol/L (20.0-26.0) H 02/20/20 06:45 ABG O2 Saturation 97.2 % (95.0-99.0) 02/20/20 06:45 ABG O2 Content 13.3 (0.0-44) 02/20/20 06:45 POC ABG Base Excess 6.5 03/12/20 04:45 ABG Base Excess 8.4 mmol/L (-2.0-3.0) H 02/20/20 06:45 ABG Hemoglobin 11.2 (12.0-17.5) L 03/12/20 04:45 ABG Oxyhemoglobin 84 (94-98) L 12/22/19 03:22 ABG Carboxyhemoglobin 2.9 % (0.0-5.0) 02/20/20 06:45 ABG Methemoglobin 0.4 % (0.0-1.5) 02/20/20 06:45 ABG Sodium 134.7 mmol/L (136.0-145.0) L 03/12/20 04:45 ABG Potassium 3.9 mmol/L (3.40-4.50) 03/12/20 04:45 ABG Chloride 98.0 mmol/L (98-107) 03/12/20 04:45 ABG Glucose 151 mg/dL (65-95) H 03/12/20 04:45 Oxyhemoglobin 94.1 % (95.0-99.0) L 02/20/20 06:45 Carboxyhemoglobin 0.7 (0.5-1.5) 12/22/19 03:22 FiO2 30 03/12/20 04:45 Sodium 136 mmol/L (137-145) L 03/19/20 07:50 Potassium 3.9 mmol/L (3.6-5.0) D 03/19/20 07:50 Chloride 97.3 mmol/L (98-107) L 03/19/20 07:50 Carbon Dioxide 31 mmol/L (22-30) H 03/19/20 07:50 Anion Gap 12 mmol/L 03/19/20 07:50 BUN 22 mg/dL (9-20) H 03/19/20 07:50 Creatinine 0.5 mg/dL (0.8-1.3) L 03/19/20 07:50 Estimated GFR > 60 ml/min 03/19/20 07:50 BUN/Creatinine Ratio 44 % 03/19/20 07:50 Glucose 160 mg/dL (75-100) H 03/19/20 07:50 POC Glucose 136 mg/dL (70-105) H 03/19/20 05:40 Lactic Acid 1.60 mmol/L (0.7-2.0) 02/03/20 12:49 Ferritin 84.4 ng/mL (30.0-300.0) 11/24/19 04:53 Calcium 8.7 mg/dL (8.4-10.2) 03/19/20 07:50 Phosphorus 4.10 mg/dL (2.5-4.5) 01/31/20 19:24 Magnesium 2.40 mg/dL (1.7-2.3) H 02/10/20 07:40 Total Bilirubin 0.90 mg/dL (0.1-1.2) 03/18/20 15:34 Direct Bilirubin 0.9 mg/dL (0-0.2) H 02/08/20 19:00 Indirect Bilirubin 0.4 mg/dL 02/08/20 19:00 Total Creatine Kinase 141 units/L (55-170) 11/24/19 02:53 CK-MB (CK-2) 4.3 ng/mL (0.0-4.0) H 11/24/19 02:53 AST 23 units/L (5-40) 03/18/20 15:34 CK-MB (CK-2) Rel Index 3.0 (0-4) 11/24/19 02:53 ALT 22 units/L (7-56) 03/18/20 15:34 Alkaline Phosphatase 96 units/L (35-129) 03/18/20 15:34 C-Reactive Protein 8.50 mg/dL (0.00-1.30) H 12/01/19 12:16 Ammonia 35.0 umol/L (25-60) 02/03/20 12:49 Lactate Dehydrogenase 228 units/L (91-180) H 12/19/19 04:45 Troponin T < 0.010 ng/mL (0.00-0.029) 01/19/20 01:35 NT-Pro-B Natriuret Pep 3866 pg/mL (0-900) H 01/01/20 10:40 Total Protein 6.2 g/dL (6.3-8.2) L 03/18/20 15:34 Albumin 2.8 g/dL (3.9-5) L 03/18/20 15:34 Albumin/Globulin Ratio 0.8 % 03/18/20 15:34 Procalcitonin 0.44 ng/mL (<0.15) 02/03/20 12:49 Arterial Blood Glucose 151 mg/dL (65-95) H 03/12/20 04:45 Arterial Blood Ionized Calcium 4.8 mg/dL (4.6-5.3) 03/12/20 04:45 Urine Color Cecy (Yellow) 02/26/20 07:50 Urine Turbidity Clear (Clear) 02/26/20 07:50 Urine pH 5.0 (5.0-7.0) 02/26/20 07:50 Ur Specific [place] 1.025 (1.003-1.030) 02/26/20 07:50 Urine Protein 30 mg/dl mg/dL (Negative) 02/26/20 07:50 Urine Glucose (UA) Neg mg/dL (Negative) 02/26/20 07:50 Urine Ketones Neg mg/dL (Negative) 02/26/20 07:50 Urine Blood Sm (Negative) 02/26/20 07:50 Urine Nitrite Neg (Negative) 02/26/20 07:50 Urine Bilirubin Neg (Negative) 02/26/20 07:50 Urine Urobilinogen 4.0 mg/dL (<2.0) 02/26/20 07:50 Ur Leukocyte Esterase Lg (Negative) 02/26/20 07:50 Urine WBC (Auto) > 182.0 /HPF (0.0-6.0) H 02/26/20 07:50 Urine RBC (Auto) 84.0 /HPF (0.0-6.0) 02/26/20 07:50 U Epithel Cells (Auto) 2.0 /HPF (0-13.0) 12/31/19 18:04 Urine Bacteria (Auto) 4+ /HPF (Negative) 02/26/20 07:50 Urine WBC Clumps 2+ /HPF 02/26/20 07:50 Urine Mucus 1+ /HPF 02/26/20 07:50 Urine Creatinine 57.4 mg/dL (0.1-20.0) H 01/31/20 Unknown Urine Sodium 59 mmol/L 01/31/20 Unknown Vancomycin Trough 14.2 ug/mL (5.0-20.0) 12/13/19 15:01 Coronavirus (PCR) Negative (Negative) 12/29/19 10:07 Hepatitis A IgM Ab Non-reactive (NonReactive) 02/05/20 06:37 Hep Bs Antigen Non-reactive (Negative) 02/05/20 06:37 Hep B Core IgM Ab Non-reactive (NonReactive) 02/05/20 06:37 Hepatitis C Antibody Non-reactive (NonReactive) 02/05/20 06:37 Blood Type O POSITIVE 01/21/20 13:00 Antibody Screen Negative 01/21/20 13:00 - Diagnostic Impressions Diagnostic Impressions: Echocardiogram 11/29/19 07:37 Transthoracic Echocardiogram Indication: CHF BP: 116/72 HR: 33 Conclusions *The study is technically limited due to poor acoustic windows. *Global left ventricular systolic function is normal. *The estimated ejection fraction is 50-55%. *Mild concentric left ventricular hypertrophy is observed. *There is trace of mitral regurgitation. *There is mild tricuspid regurgitation. Findings Procedure Info: The study quality is poor. The study is technically limited due to poor acoustic windows. The study is technically limited due to patient body habitus. Left Ventricle: The left ventricular chamber size is normal. Mild concentric left ventricular hypertrophy is observed. Global left ventricular systolic function is normal. The estimated ejection fraction is 50-55%. Left Atrium: The left atrial chamber size is normal. Right Ventricle: The right ventricular cavity size is normal. Right Atrium: The right atrial cavity size is normal. Aortic Valve: The aortic valve leaflets are moderately thickened. There is trace of aortic regurgitation. There is no evidence of aortic stenosis. Mitral Valve: The mitral valve leaflets are mildly thickened. There is trace of mitral regurgitation. There is no evidence of mitral stenosis. Tricuspid Valve: There is mild tricuspid regurgitation. No pulmonary hypertension is noted. Pulmonic Valve: There is trace pulmonic regurgitation. Pericardium: There is no pericardial effusion. Aorta: There is no dilatation of the aortic root. Venous: The inferior vena cava appears normal in size. Contrast: Definity was used to optimize study. Intravenous contrast was used to enhance endocardial border definition. Measurements Chambers 2D Name Value Normal Range Ao root diameter (2D) 3.4 cm (2 - 3.7) Aortic Valve Name Value Normal Range AV Vmax 0.98 m/sec - AV VTI 16.76 cm - AV peak gradient 3.83 mmHg - AV mean gradient 2.57 mmHg - LVOT diameter 3.11 cm - LVOT Vmax 0.68 m/sec - LVOT VTI 11.52 cm - LVOT peak gradient 1.84 mmHg - LVOT mean gradient 1.27 mmHg - SV LVOT 87.31 ml - MALOU (continuity Vmax) 5.24 cm2 - MALOU (continuity VTI) 5.21 cm2 - Tricuspid Valve Name Value Normal Range IVC diameter 2.24 cm (1.2 - 2.3) Hoffman/IV: Voiding Method Indwelling Catheter IV Catheter Type [Left INT / Saline Lock Antecubital] IV Catheter Type [Right INT / Saline Lock Forearm] IV Catheter Type [Right Hand] Peripheral IV IV Catheter Type [Right Upper INT / Saline Lock arm] IV Catheter Type [Left Upper Mid-line arm] IV Catheter Type [Left Forearm Peripheral IV ] IV Catheter Type [Left Hand] Peripheral IV IV Catheter Type [Left Wrist] INT / Saline Lock IV Catheter Type [Right Peripheral IV Antecubital] Active Medications - Current Medications Current Medications: Generic Name Dose Route Start Last Admin Trade Name Freq PRN Reason Stop Dose Admin Acetaminophen 650 mg 03/12/20 04:29 03/19/20 02:31 Acetaminophen 325 Mg/10.15 Ml Oral Liqd Unit Dose FEEDTUBE 650 mg Q6H PRN Administration Pain, Mild (1-3) Lipase/Protease/Amylase 1 each 01/09/20 12:01 03/18/20 11:09 Lipase 10,500/Protease 25,000/Amylase 43,750 (Units) Dr Lauren FEEDTUBE 1 each PRN PRN Administration For Clogged Feeding Tube Apixaban 5 mg 01/22/20 22:00 03/19/20 09:39 Eliquis PO 5 mg Q12HR CAR Administration Protocol Atorvastatin Calcium 40 mg 01/20/20 22:00 03/18/20 21:00 Lipitor PO 40 mg QHS CAR Administration Clopidogrel Bisulfate 75 mg 01/21/20 06:00 03/19/20 09:40 Plavix PO 75 mg QDAY CAR Administration Dextrose 50 ml 01/31/20 18:51 02/05/20 00:56 D50w (25gm) Syringe IV 50 ml Q30MIN PRN Administration Hypoglycemia Protocol Digoxin 0.125 mg 02/25/20 17:00 03/18/20 16:52 Lanoxin PO 0.125 mg DAILY@1700 CAR Administration Docusate Sodium 100 mg 02/22/20 10:00 03/19/20 09:52 Colace FEEDTUBE Not Given BID CAR Glycopyrrolate 2 mg 02/24/20 21:00 03/19/20 09:40 Glycopyrrolate PO 2 mg TID CAR Administration Haloperidol Lactate 5 mg 02/10/20 14:20 03/17/20 19:42 Haloperidol Lactate 5 Mg/1 Ml Inj IV 5 mg Q6H PRN Administration Agitation Hydrophilic Ointment 1 applic 01/17/20 15:26 02/24/20 23:20 Lip Therapy Vaseline TP 1 applic DIRECT PRN Administration Dry Lips Insulin Human Regular 0 unit 02/01/20 18:00 03/19/20 06:54 Humulin R SUB-Q Not Given Q6H [facility] Protocol Lansoprazole 30 mg 02/05/20 16:00 03/19/20 09:40 Lansoprazole 30 Mg Solutab FEEDTUBE 30 mg QDAY CAR Administration Metoprolol Tartrate 5 mg 01/11/20 08:00 03/18/20 16:52 Metoprolol Tartrate 5 Mg/5 Ml Inj IV 5 mg Q6H PRN Administration SEE INSTRUCTIONS Metoprolol Tartrate 12.5 mg 02/28/20 12:00 03/19/20 09:39 Metoprolol FEEDTUBE 12.5 mg BID CAR Administration Midodrine 15 mg 02/04/20 16:00 03/19/20 09:40 Midodrine 5 Mg Tab PO 15 mg TID@0800,1200,1600 CAR Administration Morphine Sulfate 2 mg 01/06/20 15:41 03/18/20 11:09 Morphine 2 Mg/1 Ml Inj IV 2 mg Q4H PRN Administration Pain, Moderate (4-6) Multi-Ingred Cream/Lotion/Oil/Oint 1 applic 02/01/20 15:52 Artificial Tears Ophth Oint OU Q4HR PRN Dry Eye(s) Nitroglycerin 0.4 mg 01/19/20 21:09 01/20/20 03:03 Nitroglycerin 0.4 Mg Tab Subl SL 0.4 mg .Q5MIN PRN Administration Chest Pain Ondansetron HCl 4 mg 01/05/20 14:37 03/18/20 11:09 Ondansetron 4 Mg/2 Ml Inj IV 4 mg Q8H PRN Administration Nausea And Vomiting Polyethylene Glycol 17 gm 12/04/19 22:00 03/18/20 21:00 Miralax 3350 PO 17 gm QHS CAR Administration Quetiapine Fumarate 300 mg 01/13/20 22:00 03/19/20 09:40 Quetiapine 100 Mg Tab PO 300 mg BID CAR Administration Simple Syrup 15 ml 01/09/20 12:01 Simple Syrup 15 Ml FEEDTUBE PRN PRN Hypoglycemia Simple Syrup 30 ml 01/09/20 12:01 Simple Syrup 15 Ml FEEDTUBE PRN PRN Hypoglycemia Sodium Bicarbonate 325 mg 01/09/20 12:01 03/07/20 12:56 Sodium Bicarbonate 325 Mg Tab FEEDTUBE 325 mg PRN PRN Administration For Clogged Feeding Tube Sodium Chloride 10 ml 11/24/19 10:00 03/19/20 09:40 Sodium Chloride Flush Syringe 10 Ml IV 10 ml BID CAR Administration Tamsulosin HCl 0.8 mg 12/20/19 22:00 03/18/20 21:00 Tamsulosin 0.4 Mg Cap PO 0.8 mg QHS CAR Administration Nutrition/Malnutrition Assess - Dietary Evaluation Nutrition/Malnutrition Findings: Nutrition Notes Start: 11/24/19 12:22 Freq: Status: Active Protocol: Document 03/17/20 10:48 LM (Rec: 03/17/20 11:08 LM [id number]) Nutrition Notes Initial or Follow up Reassessment Current Diagnosis Coronary Artery Disease,Heart Failure,Respiratory Failure, Stroke,Hyperlipidemia Other Pertinent Diagnosis pneumonia Current Diet Osmolite 1.5 at 65ml/hr Labs/Tests Reviewed Pertinent Medications Humulin Height 6 ft 2 in Weight 123.2 kg [place] Body Weight (kg) 86.36 BMI 34.8 Weight Status Obese Subjective/Other Information Observed TF running at 55ml/hr instead of 65ml/hr. Informed RN. Percent of energy/protein needs met: 95%/48% Burn Absent Trauma Absent GI Symptoms None Current % PO Negligible Minimum of two criteria Yes Muscle Mass Mild Depletion (non-severe) Fluid Accumulation Mild (non-severe) Reduced Restorative Aide Strength Measurably Reduced (severe) #2 Nutrition Diagnosis Malnutrition Diagnosis Progress(for reassessment Continues documentation) #1 Nutrition Diagnosis Inadequate oral intake Diagnosis Progress(for reassessment Continues documentation) Is patient on ventilator? Yes Is Patient Ambulatory and/or Out of Bed No REE-([facility]-confined to bed) 2520.672 Kcal/Kg value to use for calculation 17 Approximate Energy Requirements Using 2094 kcal/Kg Calculation Used for Recommendations Kcal/kg Additional Notes Protein needs are 173g ( greater than 2g/kg IBW) Fluid needs are 1 ml/kcal Nutrition Intervention Change Diet Order: Continue TF via PEG Nutrition Support: Osmolite 1.5 at 65 ml/hr. Flush 200 ml q4h. Kcal 2,340 Protein (gm) 98 Fluid (mL) 1,189 Goal #1 Meet at least 75% of pt's energy and protein needs via TF Anticipated Discharge Needs: unable to determine at this time Follow-Up By: 03/22/20 Additional Comments F/U for TF at goal rate
[2020-03-19] MEDS: MORPHINE 2 MG/1 ML INJ IV PRN (13:20)
[2020-03-19] MEDS: DIGOXIN 0.125 MG TAB PO SCH (18:04)
--- NOTE | 2020-03-19 19:12 | Progress Note ---
Assessment and Plan Acute hypoxemic respiratory failure Bilateral pneumonia, community acquired. Acute LLL branch P.E. Acute DVT Person under investigation for COVID-19 infection. Acute congestive heart failure exacerbation. History of cerebrovascular accident. Acute chronic obstructive pulmonary disease exacerbation. Hypertension and hypertensive urgency at presentation. History of arthritis. Leukocytosis. Lactic acidosis. Oropharyngeal dysphagia - repeat ABG in am - LTAC evaluation ongoing - remains a difficult wean, continue care as below; - continue daily SAT's and SBT assessment as tolerated - continue to wean oxygen for O2 sat's > 92% - continue bronchodilators with routine trach care and pulmonary hygiene per RT - VAP bundle addressed (Aspiration precautions, HOB >40) - continue to wean per pulmonary driven protocols - continue to rest on AC qhs - continue Flomax - antiinfective's per ID rec's - Midodrine for BP support - prn mucomyst nebs re: secretions - continue full anticoagulation with Apixaban - continue seroquel for anxiolysis / delirium - COVID isolation per facility protocol - prn diuresis while following electrolytes / I's & O's - sedation target is RASS 0 to -1 - continue prn analgesia per CPOT score - follow clinically re: fever curves / trend WBC - Avoid delirium (no benzodiazepines if they can be avoided) - Maintain sleep-wake cycle - enteral nutrition at goal rate as tolerated - continue accucheck's with glycemic control per SSI for target blood glucose goal of 140-180 mg/dL while critically ill; Avoid hypoglycemia - for VTE he is onEliquis - continue stress ulcer prophylaxis with Famotidine - continue mobility protocols for pressure ulcer prophylaxis - continue fall precautions - continue wound care management per RN / WCT - Supportive transfusions to keep HgB>7g/dL - CXR's and ABG's prn - Continue to monitor neurologic function - Continue chronic home medications - Continue all supportive care ........ re-evaluate in am & prn CONDITION: CRITICAL PROGNOSIS: GUARDED CODE STATUS: FULL CODE The high probability of a clinically significant, sudden or life threatening deterioration of the [Respiratory, cardiovascular & neurological] system(s) required my full and direct attention, intervention and personal management. The aggregate critical care time was [34] minutes without overlap. Time includes spent on [x] Data Review and interpretation [x] Patient assessment and monitoring of vital signs [x] Documentation [x] Medication orders and management Subjective Date of service: 03/19/20 Principal diagnosis: Ac hypoxemic resp failure; Pneumonia; PUI COVID-19; CHF; COPD; HTN Interval history: Patient is seen today for: Acute hypoxemic respiratory failure; Adan. Pneumonia (CAP); PUI COVID-19 infection; AE-CHF; AE-COPD; H/O CVA; HTN Seen and examined at bedside; 24 hour events reviewed; nursing and respiratory care staff consulted; no adverse overnight events reported to me; resting peacefully in bed; remains a difficult wean; denies acute chest pain; No N/V/F/C Objective Vital Signs - 12hr 03/19/20 03/19/20 03/19/20 08:00 08:01 08:12 Temperature 97.7 F Pulse Rate 109 H 107 H Respiratory 21 Rate Blood Pressure 97/67 97/67 O2 Sat by Pulse 98 100 Oximetry O2 Sat by Pulse 100 Oximetry [ Assessment] 03/19/20 03/19/20 03/19/20 09:00 09:39 10:01 Temperature Pulse Rate 113 H 101 H 110 H Respiratory 17 14 Rate Blood Pressure 94/70 94/70 O2 Sat by Pulse 99 100 Oximetry O2 Sat by Pulse Oximetry [ Assessment] 03/19/20 03/19/20 03/19/20 11:01 12:00 12:49 Temperature 97.4 F L Pulse Rate 109 H 126 H 109 H Respiratory 17 14 Rate Blood Pressure 92/61 92/68 92/68 O2 Sat by Pulse 97 99 Oximetry O2 Sat by Pulse Oximetry [ Assessment] 03/19/20 03/19/20 03/19/20 13:01 14:00 15:01 Temperature Pulse Rate 128 H 126 H 124 H Respiratory 31 H 21 14 Rate Blood Pressure 92/68 106/76 91/65 O2 Sat by Pulse 99 98 Oximetry O2 Sat by Pulse Oximetry [ Assessment] 03/19/20 03/19/20 03/19/20 16:01 16:04 18:04 Temperature Pulse Rate 132 H 119 H 119 H Respiratory 14 Rate Blood Pressure 91/65 96/72 O2 Sat by Pulse 99 99 Oximetry O2 Sat by Pulse 100 Oximetry [ Assessment] Constitutional: no acute distress, other (elelelderly and obese male, normocephalic with mildly increased respiratory effort at rest) Eyes: non-icteric ENT: oropharynx moist, other (+ midline tracheostomy) Neck: supple, no JVD Effort: mildly labored Ascultation: Bilateral: diminished breath sounds, rhonchi (scant) Percussion: Bilateral: not dull Cardiovascular: irregular rhythm Gastrointestinal: normoactive bowel sounds, soft, non-tender, non-distended (protuberant), other (protuberant; PEG in place) Integumentary: normal Extremities: no cyanosis, no edema, pulses normal, no ischemia or petechiae Neurologic: non-focal exam (grossly; moves extremities), pupils equal and round, other (intermittent agitation) Psychiatric: mood appropriate, affect normal CBC and BMP: 03/15/20 04:05 03/19/20 07:50 ABG, PT/INR, D-dimer: ABG ABG pH 7.454 (7.320-7.450) H 03/12/20 04:45 POC ABG pCO2 45.6 mmHg (32.0-48.0) 03/12/20 04:45 ABG pCO2 47.8 mm Hg 02/20/20 06:45 POC ABG pO2 69.2 mmHg (83-108) L 03/12/20 04:45 ABG pO2 88.7 mm Hg (80.0-90.0) 02/20/20 06:45 POC ABG HCO3 31.3 03/12/20 04:45 ABG O2 Saturation 97.2 % (95.0-99.0) 02/20/20 06:45 PT/INR, D-dimer PT 27.0 Sec. (12.2-14.9) H 02/07/20 15:03 INR 2.46 (0.87-1.13) H 02/07/20 15:03 Abnormal lab findings: Abnormal Labs 11/24/19 11/24/19 11/24/19 02:53 02:53 03:45 WBC 14.3 H RBC Hgb Hct MCHC RDW 17.2 H MCV MCH Lymph % (Auto) [place] % (Auto) [place] # Eos # Lymph # (Auto) [place] # (Auto) Eos # (Auto) Seg Neutrophils % Seg Neuts % (Manual) Baso # (Auto) Lymphocytes % (Manual) Monocytes % (Manual) Eosinophils % (Manual) Basophils % (Manual) Seg Neutrophils # Seg Neutrophils # Man 8.3 H Lymphocytes # (Manual) Monocytes # (Manual) 0.9 H Eosinophils # (Manual) Nucleated RBC % Basophils # (Manual) PT INR APTT Heparin Anti-Xa Level ABG pH 7.313 L POC ABG pO2 ABG pO2 102.8 H ABG HCO3 ABG O2 Saturation ABG Base Excess -2.9 L POC ABG pCO2 ABG Hemoglobin ABG Oxyhemoglobin ABG Sodium ABG Chloride ABG Glucose Oxyhemoglobin 93.9 L Sodium Potassium Chloride Carbon Dioxide BUN Creatinine Glucose 195 H POC Glucose Lactic Acid Calcium Phosphorus Magnesium AST ALT Lactate Dehydrogenase Total Bilirubin Direct Bilirubin CK-MB (CK-2) 4.3 H C-Reactive Protein NT-Pro-B Natriuret Pep 1181 H Total Protein Albumin Arterial Blood Glucose Urine WBC (Auto) Urine Creatinine 11/24/19 11/24/19 11/24/19 04:53 04:53 10:37 WBC RBC Hgb Hct MCHC RDW MCV MCH Lymph % (Auto) [place] % (Auto) [place] # Eos # Lymph # (Auto) [place] # (Auto) Eos # (Auto) Seg Neutrophils % Seg Neuts % (Manual) Baso # (Auto) Lymphocytes % (Manual) Monocytes % (Manual) Eosinophils % (Manual) Basophils % (Manual) Seg Neutrophils # Seg Neutrophils # Man Lymphocytes # (Manual) Monocytes # (Manual) Eosinophils # (Manual) Nucleated RBC % Basophils # (Manual) PT INR APTT Heparin Anti-Xa Level ABG pH POC ABG pO2 ABG pO2 ABG HCO3 ABG O2 Saturation ABG Base Excess POC ABG pCO2 ABG Hemoglobin ABG Oxyhemoglobin ABG Sodium ABG Chloride ABG Glucose Oxyhemoglobin Sodium Potassium Chloride Carbon Dioxide BUN Creatinine Glucose 162 H POC Glucose Lactic Acid 2.40 H* 2.50 H* Calcium Phosphorus Magnesium AST ALT Lactate Dehydrogenase 240 H Total Bilirubin Direct Bilirubin CK-MB (CK-2) C-Reactive Protein NT-Pro-B Natriuret Pep Total Protein Albumin Arterial Blood Glucose Urine WBC (Auto) Urine Creatinine 11/24/19 11/24/19 11/24/19 12:21 14:50 19:54 WBC RBC Hgb Hct MCHC RDW MCV MCH Lymph % (Auto) [place] % (Auto) [place] # Eos # Lymph # (Auto) [place] # (Auto) Eos # (Auto) Seg Neutrophils % Seg Neuts % (Manual) Baso # (Auto) Lymphocytes % (Manual) Monocytes % (Manual) Eosinophils % (Manual) Basophils % (Manual) Seg Neutrophils # Seg Neutrophils # Man Lymphocytes # (Manual) Monocytes # (Manual) Eosinophils # (Manual) Nucleated RBC % Basophils # (Manual) PT INR APTT Heparin Anti-Xa Level ABG pH POC ABG pO2 ABG pO2 ABG HCO3 ABG O2 Saturation ABG Base Excess POC ABG pCO2 ABG Hemoglobin ABG Oxyhemoglobin ABG Sodium ABG Chloride ABG Glucose Oxyhemoglobin Sodium Potassium Chloride Carbon Dioxide BUN Creatinine Glucose POC Glucose 145 H 143 H 124 H Lactic Acid Calcium Phosphorus Magnesium AST ALT Lactate Dehydrogenase Total Bilirubin Direct Bilirubin CK-MB (CK-2) C-Reactive Protein NT-Pro-B Natriuret Pep Total Protein Albumin Arterial Blood Glucose Urine WBC (Auto) Urine Creatinine 11/25/19 11/25/19 11/25/19 00:18 03:18 05:11 WBC 13.7 H RBC Hgb Hct MCHC RDW 17.1 H MCV MCH Lymph % (Auto) 10.8 L [place] % (Auto) 8.7 H [place] # 1.2 H Eos # Lymph # (Auto) [place] # (Auto) Eos # (Auto) Seg Neutrophils % 80.2 H Seg Neuts % (Manual) Baso # (Auto) Lymphocytes % (Manual) Monocytes % (Manual) Eosinophils % (Manual) Basophils % (Manual) Seg Neutrophils # 11.0 H Seg Neutrophils # Man Lymphocytes # (Manual) Monocytes # (Manual) Eosinophils # (Manual) Nucleated RBC % Basophils # (Manual) PT INR APTT Heparin Anti-Xa Level ABG pH 7.333 L POC ABG pO2 ABG pO2 61.2 L ABG HCO3 ABG O2 Saturation 90.2 L ABG Base Excess POC ABG pCO2 ABG Hemoglobin 13.7 L ABG Oxyhemoglobin ABG Sodium ABG Chloride ABG Glucose Oxyhemoglobin 88.2 L Sodium Potassium Chloride Carbon Dioxide BUN Creatinine Glucose POC Glucose 109 H Lactic Acid Calcium Phosphorus Magnesium AST ALT Lactate Dehydrogenase Total Bilirubin Direct Bilirubin CK-MB (CK-2) C-Reactive Protein NT-Pro-B Natriuret Pep Total Protein Albumin Arterial Blood Glucose Urine WBC (Auto) Urine Creatinine 11/25/19 11/25/19 11/26/19 05:11 11:40 03:12 WBC RBC Hgb Hct MCHC RDW MCV MCH Lymph % (Auto) [place] % (Auto) [place] # Eos # Lymph # (Auto) [place] # (Auto) Eos # (Auto) Seg Neutrophils % Seg Neuts % (Manual) Baso # (Auto) Lymphocytes % (Manual) Monocytes % (Manual) Eosinophils % (Manual) Basophils % (Manual) Seg Neutrophils # Seg Neutrophils # Man Lymphocytes # (Manual) Monocytes # (Manual) Eosinophils # (Manual) Nucleated RBC % Basophils # (Manual) PT INR APTT Heparin Anti-Xa Level ABG pH POC ABG pO2 ABG pO2 155.1 H ABG HCO3 27.8 H ABG O2 Saturation ABG Base Excess POC ABG pCO2 ABG Hemoglobin 12.2 L ABG Oxyhemoglobin ABG Sodium ABG Chloride ABG Glucose Oxyhemoglobin Sodium Potassium Chloride Carbon Dioxide BUN 23 H Creatinine Glucose 110 H POC Glucose 108 H Lactic Acid Calcium Phosphorus Magnesium AST ALT Lactate Dehydrogenase Total Bilirubin Direct Bilirubin CK-MB (CK-2) C-Reactive Protein NT-Pro-B Natriuret Pep Total Protein Albumin Arterial Blood Glucose Urine WBC (Auto) Urine Creatinine 11/26/19 11/26/19 11/26/19 06:17 10:43 10:43 WBC 11.4 H RBC Hgb Hct MCHC RDW 17.1 H MCV MCH Lymph % (Auto) [place] % (Auto) [place] # Eos # Lymph # (Auto) [place] # (Auto) Eos # (Auto) Seg Neutrophils % Seg Neuts % (Manual) Baso # (Auto) Lymphocytes % (Manual) Monocytes % (Manual) Eosinophils % (Manual) Basophils % (Manual) Seg Neutrophils # Seg Neutrophils # Man Lymphocytes # (Manual) Monocytes # (Manual) Eosinophils # (Manual) Nucleated RBC % Basophils # (Manual) PT INR APTT Heparin Anti-Xa Level ABG pH POC ABG pO2 ABG pO2 ABG HCO3 ABG O2 Saturation ABG Base Excess POC ABG pCO2 ABG Hemoglobin ABG Oxyhemoglobin ABG Sodium ABG Chloride ABG Glucose Oxyhemoglobin Sodium Potassium Chloride Carbon Dioxide BUN 29 H Creatinine Glucose POC Glucose 107 H Lactic Acid Calcium Phosphorus Magnesium AST ALT Lactate Dehydrogenase Total Bilirubin Direct Bilirubin CK-MB (CK-2) C-Reactive Protein NT-Pro-B Natriuret Pep Total Protein Albumin Arterial Blood Glucose Urine WBC (Auto) Urine Creatinine 11/26/19 11/27/19 11/27/19 17:11 01:53 04:11 WBC RBC Hgb Hct MCHC RDW MCV MCH Lymph % (Auto) [place] % (Auto) [place] # Eos # Lymph # (Auto) [place] # (Auto) Eos # (Auto) Seg Neutrophils % Seg Neuts % (Manual) Baso # (Auto) Lymphocytes % (Manual) Monocytes % (Manual) Eosinophils % (Manual) Basophils % (Manual) Seg Neutrophils # Seg Neutrophils # Man Lymphocytes # (Manual) Monocytes # (Manual) Eosinophils # (Manual) Nucleated RBC % Basophils # (Manual) PT INR APTT Heparin Anti-Xa Level ABG pH POC ABG pO2 ABG pO2 ABG HCO3 29.2 H ABG O2 Saturation ABG Base Excess 3.4 H POC ABG pCO2 ABG Hemoglobin 13.3 L ABG Oxyhemoglobin ABG Sodium ABG Chloride ABG Glucose Oxyhemoglobin 94.5 L Sodium Potassium Chloride Carbon Dioxide BUN Creatinine Glucose POC Glucose 113 H 108 H Lactic Acid Calcium Phosphorus Magnesium AST ALT Lactate Dehydrogenase Total Bilirubin Direct Bilirubin CK-MB (CK-2) C-Reactive Protein NT-Pro-B Natriuret Pep Total Protein Albumin Arterial Blood Glucose Urine WBC (Auto) Urine Creatinine 11/27/19 11/28/19 11/28/19 05:27 05:00 05:25 WBC RBC Hgb Hct MCHC RDW MCV MCH Lymph % (Auto) [place] % (Auto) [place] # Eos # Lymph # (Auto) [place] # (Auto) Eos # (Auto) Seg Neutrophils % Seg Neuts % (Manual) Baso # (Auto) Lymphocytes % (Manual) Monocytes % (Manual) Eosinophils % (Manual) Basophils % (Manual) Seg Neutrophils # Seg Neutrophils # Man Lymphocytes # (Manual) Monocytes # (Manual) Eosinophils # (Manual) Nucleated RBC % Basophils # (Manual) PT INR APTT Heparin Anti-Xa Level ABG pH POC ABG pO2 68.1 L ABG pO2 ABG HCO3 ABG O2 Saturation ABG Base Excess POC ABG pCO2 ABG Hemoglobin ABG Oxyhemoglobin 91.2 L ABG Sodium ABG Chloride ABG Glucose Oxyhemoglobin Sodium Potassium Chloride Carbon Dioxide BUN Creatinine Glucose POC Glucose 111 H 110 H Lactic Acid Calcium Phosphorus Magnesium AST ALT Lactate Dehydrogenase Total Bilirubin Direct Bilirubin CK-MB (CK-2) C-Reactive Protein NT-Pro-B Natriuret Pep Total Protein Albumin Arterial Blood Glucose Urine WBC (Auto) Urine Creatinine 11/28/19 11/28/19 11/28/19 12:08 13:47 13:47 WBC 11.3 H RBC Hgb Hct MCHC RDW 16.1 H MCV MCH Lymph % (Auto) [place] % (Auto) 9.9 H [place] # 1.1 H Eos # Lymph # (Auto) [place] # (Auto) Eos # (Auto) Seg Neutrophils % 71.4 H Seg Neuts % (Manual) Baso # (Auto) Lymphocytes % (Manual) Monocytes % (Manual) Eosinophils % (Manual) Basophils % (Manual) Seg Neutrophils # 8.1 H Seg Neutrophils # Man Lymphocytes # (Manual) Monocytes # (Manual) Eosinophils # (Manual) Nucleated RBC % Basophils # (Manual) PT INR APTT Heparin Anti-Xa Level ABG pH POC ABG pO2 ABG pO2 ABG HCO3 ABG O2 Saturation ABG Base Excess POC ABG pCO2 ABG Hemoglobin ABG Oxyhemoglobin ABG Sodium ABG Chloride ABG Glucose Oxyhemoglobin Sodium Potassium Chloride Carbon Dioxide BUN 23 H Creatinine Glucose 123 H POC Glucose 112 H Lactic Acid Calcium Phosphorus Magnesium AST ALT Lactate Dehydrogenase Total Bilirubin Direct Bilirubin CK-MB (CK-2) C-Reactive Protein NT-Pro-B Natriuret Pep Total Protein Albumin 3.7 L Arterial Blood Glucose Urine WBC (Auto) Urine Creatinine 11/28/19 11/29/19 11/29/19 17:26 03:55 17:04 WBC RBC Hgb Hct MCHC RDW MCV MCH Lymph % (Auto) [place] % (Auto) [place] # Eos # Lymph # (Auto) [place] # (Auto) Eos # (Auto) Seg Neutrophils % Seg Neuts % (Manual) Baso # (Auto) Lymphocytes % (Manual) Monocytes % (Manual) Eosinophils % (Manual) Basophils % (Manual) Seg Neutrophils # Seg Neutrophils # Man Lymphocytes # (Manual) Monocytes # (Manual) Eosinophils # (Manual) Nucleated RBC % Basophils # (Manual) PT INR APTT Heparin Anti-Xa Level ABG pH POC ABG pO2 ABG pO2 65.7 L ABG HCO3 28.3 H ABG O2 Saturation 93.9 L ABG Base Excess 3.6 H POC ABG pCO2 ABG Hemoglobin 13.3 L ABG Oxyhemoglobin ABG Sodium ABG Chloride ABG Glucose Oxyhemoglobin 91.5 L Sodium Potassium Chloride Carbon Dioxide BUN Creatinine Glucose POC Glucose 123 H 119 H Lactic Acid Calcium Phosphorus Magnesium AST ALT Lactate Dehydrogenase Total Bilirubin Direct Bilirubin CK-MB (CK-2) C-Reactive Protein NT-Pro-B Natriuret Pep Total Protein Albumin Arterial Blood Glucose Urine WBC (Auto) Urine Creatinine 11/30/19 11/30/19 11/30/19 04:17 04:17 04:56 WBC 13.4 H RBC Hgb Hct MCHC RDW 15.6 H MCV MCH Lymph % (Auto) [place] % (Auto) [place] # Eos # Lymph # (Auto) [place] # (Auto) Eos # (Auto) Seg Neutrophils % Seg Neuts % (Manual) Baso # (Auto) Lymphocytes % (Manual) Monocytes % (Manual) Eosinophils % (Manual) Basophils % (Manual) Seg Neutrophils # Seg Neutrophils # Man Lymphocytes # (Manual) Monocytes # (Manual) Eosinophils # (Manual) Nucleated RBC % Basophils # (Manual) PT INR APTT Heparin Anti-Xa Level ABG pH POC ABG pO2 ABG pO2 56.3 L ABG HCO3 29.3 H ABG O2 Saturation 91.5 L ABG Base Excess 4.7 H POC ABG pCO2 ABG Hemoglobin 12.1 L ABG Oxyhemoglobin ABG Sodium ABG Chloride ABG Glucose Oxyhemoglobin 89.2 L Sodium 147 H Potassium Chloride Carbon Dioxide BUN 30 H Creatinine Glucose 124 H POC Glucose Lactic Acid Calcium Phosphorus Magnesium AST ALT Lactate Dehydrogenase Total Bilirubin Direct Bilirubin CK-MB (CK-2) C-Reactive Protein NT-Pro-B Natriuret Pep Total Protein Albumin 3.8 L Arterial Blood Glucose Urine WBC (Auto) Urine Creatinine 11/30/19 11/30/19 11/30/19 05:51 11:54 18:17 WBC RBC Hgb Hct MCHC RDW MCV MCH Lymph % (Auto) [place] % (Auto) [place] # Eos # Lymph # (Auto) [place] # (Auto) Eos # (Auto) Seg Neutrophils % Seg Neuts % (Manual) Baso # (Auto) Lymphocytes % (Manual) Monocytes % (Manual) Eosinophils % (Manual) Basophils % (Manual) Seg Neutrophils # Seg Neutrophils # Man Lymphocytes # (Manual) Monocytes # (Manual) Eosinophils # (Manual) Nucleated RBC % Basophils # (Manual) PT INR APTT Heparin Anti-Xa Level ABG pH POC ABG pO2 ABG pO2 ABG HCO3 ABG O2 Saturation ABG Base Excess POC ABG pCO2 ABG Hemoglobin ABG Oxyhemoglobin ABG Sodium ABG Chloride ABG Glucose Oxyhemoglobin Sodium Potassium Chloride Carbon Dioxide BUN Creatinine Glucose POC Glucose 127 H 115 H 143 H Lactic Acid Calcium Phosphorus Magnesium AST ALT Lactate Dehydrogenase Total Bilirubin Direct Bilirubin CK-MB (CK-2) C-Reactive Protein NT-Pro-B Natriuret Pep Total Protein Albumin Arterial Blood Glucose Urine WBC (Auto) Urine Creatinine 12/01/19 12/01/19 12/01/19 01:18 05:22 12:16 WBC RBC Hgb Hct MCHC RDW MCV MCH Lymph % (Auto) [place] % (Auto) [place] # Eos # Lymph # (Auto) [place] # (Auto) Eos # (Auto) Seg Neutrophils % Seg Neuts % (Manual) Baso # (Auto) Lymphocytes % (Manual) Monocytes % (Manual) Eosinophils % (Manual) Basophils % (Manual) Seg Neutrophils # Seg Neutrophils # Man Lymphocytes # (Manual) Monocytes # (Manual) Eosinophils # (Manual) Nucleated RBC % Basophils # (Manual) PT INR APTT Heparin Anti-Xa Level ABG pH POC ABG pO2 ABG pO2 ABG HCO3 ABG O2 Saturation ABG Base Excess POC ABG pCO2 ABG Hemoglobin ABG Oxyhemoglobin ABG Sodium ABG Chloride ABG Glucose Oxyhemoglobin Sodium Potassium 3.5 L Chloride 107.8 H Carbon Dioxide BUN 37 H Creatinine Glucose 157 H POC Glucose 118 H 148 H Lactic Acid Calcium 8.2 L D Phosphorus Magnesium AST 48 H ALT 60 H Lactate Dehydrogenase 194 H Total Bilirubin Direct Bilirubin CK-MB (CK-2) C-Reactive Protein 8.50 H NT-Pro-B Natriuret Pep Total Protein 5.5 L Albumin 2.8 L Arterial Blood Glucose Urine WBC (Auto) Urine Creatinine 12/01/19 12/02/19 12/02/19 18:04 00:05 05:16 WBC 11.4 H RBC Hgb Hct MCHC RDW 15.9 H MCV MCH Lymph % (Auto) [place] % (Auto) 9.9 H [place] # 1.1 H Eos # Lymph # (Auto) [place] # (Auto) Eos # (Auto) Seg Neutrophils % 70.3 H Seg Neuts % (Manual) Baso # (Auto) Lymphocytes % (Manual) Monocytes % (Manual) Eosinophils % (Manual) Basophils % (Manual) Seg Neutrophils # 8.0 H Seg Neutrophils # Man Lymphocytes # (Manual) Monocytes # (Manual) Eosinophils # (Manual) Nucleated RBC % Basophils # (Manual) PT INR APTT Heparin Anti-Xa Level ABG pH POC ABG pO2 ABG pO2 ABG HCO3 ABG O2 Saturation ABG Base Excess POC ABG pCO2 ABG Hemoglobin ABG Oxyhemoglobin ABG Sodium ABG Chloride ABG Glucose Oxyhemoglobin Sodium Potassium Chloride Carbon Dioxide BUN Creatinine Glucose POC Glucose 143 H 107 H Lactic Acid Calcium Phosphorus Magnesium AST ALT Lactate Dehydrogenase Total Bilirubin Direct Bilirubin CK-MB (CK-2) C-Reactive Protein NT-Pro-B Natriuret Pep Total Protein Albumin Arterial Blood Glucose Urine WBC (Auto) Urine Creatinine 12/02/19 12/02/19 12/02/19 05:16 06:03 11:52 WBC RBC Hgb Hct MCHC RDW MCV MCH Lymph % (Auto) [place] % (Auto) [place] # Eos # Lymph # (Auto) [place] # (Auto) Eos # (Auto) Seg Neutrophils % Seg Neuts % (Manual) Baso # (Auto) Lymphocytes % (Manual) Monocytes % (Manual) Eosinophils % (Manual) Basophils % (Manual) Seg Neutrophils # Seg Neutrophils # Man Lymphocytes # (Manual) Monocytes # (Manual) Eosinophils # (Manual) Nucleated RBC % Basophils # (Manual) PT INR APTT Heparin Anti-Xa Level ABG pH POC ABG pO2 ABG pO2 ABG HCO3 ABG O2 Saturation ABG Base Excess POC ABG pCO2 ABG Hemoglobin ABG Oxyhemoglobin ABG Sodium ABG Chloride ABG Glucose Oxyhemoglobin Sodium 146 H Potassium Chloride Carbon Dioxide BUN 28 H Creatinine Glucose 123 H POC Glucose 110 H 152 H Lactic Acid Calcium Phosphorus Magnesium AST ALT Lactate Dehydrogenase Total Bilirubin Direct Bilirubin CK-MB (CK-2) C-Reactive Protein NT-Pro-B Natriuret Pep Total Protein Albumin Arterial Blood Glucose Urine WBC (Auto) Urine Creatinine 12/02/19 12/02/19 12/02/19 12:58 17:58 23:36 WBC RBC Hgb Hct MCHC RDW MCV MCH Lymph % (Auto) [place] % (Auto) [place] # Eos # Lymph # (Auto) [place] # (Auto) Eos # (Auto) Seg Neutrophils % Seg Neuts % (Manual) Baso # (Auto) Lymphocytes % (Manual) Monocytes % (Manual) Eosinophils % (Manual) Basophils % (Manual) Seg Neutrophils # Seg Neutrophils # Man Lymphocytes # (Manual) Monocytes # (Manual) Eosinophils # (Manual) Nucleated RBC % Basophils # (Manual) PT INR APTT Heparin Anti-Xa Level ABG pH POC ABG pO2 78.1 L ABG pO2 ABG HCO3 ABG O2 Saturation ABG Base Excess POC ABG pCO2 ABG Hemoglobin ABG Oxyhemoglobin ABG Sodium ABG Chloride ABG Glucose Oxyhemoglobin Sodium Potassium Chloride Carbon Dioxide BUN Creatinine Glucose POC Glucose 120 H 123 H Lactic Acid Calcium Phosphorus Magnesium AST ALT Lactate Dehydrogenase Total Bilirubin Direct Bilirubin CK-MB (CK-2) C-Reactive Protein NT-Pro-B Natriuret Pep Total Protein Albumin Arterial Blood Glucose Urine WBC (Auto) Urine Creatinine 12/03/19 12/03/19 12/03/19 06:03 06:14 11:46 WBC RBC Hgb Hct MCHC RDW MCV MCH Lymph % (Auto) [place] % (Auto) [place] # Eos # Lymph # (Auto) [place] # (Auto) Eos # (Auto) Seg Neutrophils % Seg Neuts % (Manual) Baso # (Auto) Lymphocytes % (Manual) Monocytes % (Manual) Eosinophils % (Manual) Basophils % (Manual) Seg Neutrophils # Seg Neutrophils # Man Lymphocytes # (Manual) Monocytes # (Manual) Eosinophils # (Manual) Nucleated RBC % Basophils # (Manual) PT INR APTT Heparin Anti-Xa Level ABG pH POC ABG pO2 ABG pO2 ABG HCO3 ABG O2 Saturation ABG Base Excess POC ABG pCO2 ABG Hemoglobin ABG Oxyhemoglobin ABG Sodium ABG Chloride ABG Glucose Oxyhemoglobin Sodium Potassium Chloride Carbon Dioxide BUN Creatinine Glucose POC Glucose 142 H 130 H Lactic Acid Calcium Phosphorus Magnesium AST ALT Lactate Dehydrogenase Total Bilirubin Direct Bilirubin CK-MB (CK-2) C-Reactive Protein NT-Pro-B Natriuret Pep Total Protein Albumin Arterial Blood Glucose Urine WBC (Auto) 8.0 H Urine Creatinine 12/03/19 12/03/19 12/04/19 15:50 17:39 00:04 WBC RBC Hgb Hct MCHC RDW MCV MCH Lymph % (Auto) [place] % (Auto) [place] # Eos # Lymph # (Auto) [place] # (Auto) Eos # (Auto) Seg Neutrophils % Seg Neuts % (Manual) Baso # (Auto) Lymphocytes % (Manual) Monocytes % (Manual) Eosinophils % (Manual) Basophils % (Manual) Seg Neutrophils # Seg Neutrophils # Man Lymphocytes # (Manual) Monocytes # (Manual) Eosinophils # (Manual) Nucleated RBC % Basophils # (Manual) PT INR APTT Heparin Anti-Xa Level ABG pH POC ABG pO2 ABG pO2 ABG HCO3 ABG O2 Saturation ABG Base Excess POC ABG pCO2 ABG Hemoglobin ABG Oxyhemoglobin ABG Sodium ABG Chloride ABG Glucose Oxyhemoglobin Sodium Potassium Chloride Carbon Dioxide BUN Creatinine Glucose POC Glucose 146 H 133 H Lactic Acid Calcium Phosphorus 2.40 L Magnesium AST ALT Lactate Dehydrogenase Total Bilirubin Direct Bilirubin CK-MB (CK-2) C-Reactive Protein NT-Pro-B Natriuret Pep Total Protein Albumin Arterial Blood Glucose Urine WBC (Auto) Urine Creatinine 12/04/19 12/04/19 12/04/19 03:58 03:58 05:22 WBC 12.5 H RBC Hgb 11.2 L Hct 35.2 L MCHC RDW 16.0 H MCV MCH Lymph % (Auto) [place] % (Auto) 9.6 H [place] # 1.2 H Eos # 0.5 H Lymph # (Auto) [place] # (Auto) Eos # (Auto) Seg Neutrophils % Seg Neuts % (Manual) Baso # (Auto) Lymphocytes % (Manual) Monocytes % (Manual) Eosinophils % (Manual) Basophils % (Manual) Seg Neutrophils # 8.6 H Seg Neutrophils # Man Lymphocytes # (Manual) Monocytes # (Manual) Eosinophils # (Manual) Nucleated RBC % Basophils # (Manual) PT INR APTT Heparin Anti-Xa Level ABG pH POC ABG pO2 ABG pO2 ABG HCO3 ABG O2 Saturation ABG Base Excess POC ABG pCO2 ABG Hemoglobin ABG Oxyhemoglobin ABG Sodium ABG Chloride ABG Glucose Oxyhemoglobin Sodium 146 H Potassium Chloride 108.6 H Carbon Dioxide BUN 30 H Creatinine 0.7 L Glucose 121 H POC Glucose 132 H Lactic Acid Calcium Phosphorus Magnesium AST ALT Lactate Dehydrogenase Total Bilirubin Direct Bilirubin CK-MB (CK-2) C-Reactive Protein NT-Pro-B Natriuret Pep Total Protein Albumin Arterial Blood Glucose Urine WBC (Auto) Urine Creatinine 12/04/19 12/04/19 12/05/19 13:26 18:43 00:19 WBC RBC Hgb Hct MCHC RDW MCV MCH Lymph % (Auto) [place] % (Auto) [place] # Eos # Lymph # (Auto) [place] # (Auto) Eos # (Auto) Seg Neutrophils % Seg Neuts % (Manual) Baso # (Auto) Lymphocytes % (Manual) Monocytes % (Manual) Eosinophils % (Manual) Basophils % (Manual) Seg Neutrophils # Seg Neutrophils # Man Lymphocytes # (Manual) Monocytes # (Manual) Eosinophils # (Manual) Nucleated RBC % Basophils # (Manual) PT INR APTT Heparin Anti-Xa Level ABG pH POC ABG pO2 ABG pO2 ABG HCO3 ABG O2 Saturation ABG Base Excess POC ABG pCO2 ABG Hemoglobin ABG Oxyhemoglobin ABG Sodium ABG Chloride ABG Glucose Oxyhemoglobin Sodium Potassium Chloride Carbon Dioxide BUN Creatinine Glucose POC Glucose 185 H 156 H 150 H Lactic Acid Calcium Phosphorus Magnesium AST ALT Lactate Dehydrogenase Total Bilirubin Direct Bilirubin CK-MB (CK-2) C-Reactive Protein NT-Pro-B Natriuret Pep Total Protein Albumin Arterial Blood Glucose Urine WBC (Auto) Urine Creatinine 12/05/19 12/05/19 12/05/19 03:37 03:37 05:14 WBC 16.3 H RBC Hgb 11.4 L Hct MCHC RDW 15.6 H MCV MCH Lymph % (Auto) 9.9 L [place] % (Auto) 9.7 H [place] # 1.6 H Eos # Lymph # (Auto) [place] # (Auto) Eos # (Auto) Seg Neutrophils % 78.0 H Seg Neuts % (Manual) Baso # (Auto) Lymphocytes % (Manual) Monocytes % (Manual) Eosinophils % (Manual) Basophils % (Manual) Seg Neutrophils # 12.7 H Seg Neutrophils # Man Lymphocytes # (Manual) Monocytes # (Manual) Eosinophils # (Manual) Nucleated RBC % Basophils # (Manual) PT INR APTT Heparin Anti-Xa Level ABG pH POC ABG pO2 ABG pO2 ABG HCO3 ABG O2 Saturation ABG Base Excess POC ABG pCO2 ABG Hemoglobin ABG Oxyhemoglobin ABG Sodium ABG Chloride ABG Glucose Oxyhemoglobin Sodium 146 H Potassium Chloride 107.2 H Carbon Dioxide BUN 27 H Creatinine 0.7 L Glucose 171 H POC Glucose 168 H Lactic Acid Calcium Phosphorus Magnesium AST ALT Lactate Dehydrogenase Total Bilirubin Direct Bilirubin CK-MB (CK-2) C-Reactive Protein NT-Pro-B Natriuret Pep Total Protein Albumin Arterial Blood Glucose Urine WBC (Auto) Urine Creatinine 12/05/19 12/05/19 12/05/19 12:31 18:10 23:58 WBC RBC Hgb Hct MCHC RDW MCV MCH Lymph % (Auto) [place] % (Auto) [place] # Eos # Lymph # (Auto) [place] # (Auto) Eos # (Auto) Seg Neutrophils % Seg Neuts % (Manual) Baso # (Auto) Lymphocytes % (Manual) Monocytes % (Manual) Eosinophils % (Manual) Basophils % (Manual) Seg Neutrophils # Seg Neutrophils # Man Lymphocytes # (Manual) Monocytes # (Manual) Eosinophils # (Manual) Nucleated RBC % Basophils # (Manual) PT INR APTT Heparin Anti-Xa Level ABG pH POC ABG pO2 ABG pO2 ABG HCO3 ABG O2 Saturation ABG Base Excess POC ABG pCO2 ABG Hemoglobin ABG Oxyhemoglobin ABG Sodium ABG Chloride ABG Glucose Oxyhemoglobin Sodium Potassium Chloride Carbon Dioxide BUN Creatinine Glucose POC Glucose 159 H 198 H 115 H Lactic Acid Calcium Phosphorus Magnesium AST ALT Lactate Dehydrogenase Total Bilirubin Direct Bilirubin CK-MB (CK-2) C-Reactive Protein NT-Pro-B Natriuret Pep Total Protein Albumin Arterial Blood Glucose Urine WBC (Auto) Urine Creatinine 12/06/19 12/06/19 12/06/19 05:24 05:24 05:25 WBC 14.9 H RBC Hgb 10.8 L Hct 34.0 L MCHC RDW 15.6 H MCV MCH Lymph % (Auto) 10.7 L [place] % (Auto) 8.3 H [place] # 1.2 H Eos # Lymph # (Auto) [place] # (Auto) Eos # (Auto) Seg Neutrophils % 78.7 H Seg Neuts % (Manual) Baso # (Auto) Lymphocytes % (Manual) Monocytes % (Manual) Eosinophils % (Manual) Basophils % (Manual) Seg Neutrophils # 11.7 H Seg Neutrophils # Man Lymphocytes # (Manual) Monocytes # (Manual) Eosinophils # (Manual) Nucleated RBC % Basophils # (Manual) PT INR APTT Heparin Anti-Xa Level ABG pH POC ABG pO2 ABG pO2 ABG HCO3 ABG O2 Saturation ABG Base Excess POC ABG pCO2 ABG Hemoglobin ABG Oxyhemoglobin ABG Sodium ABG Chloride ABG Glucose Oxyhemoglobin Sodium 148 H Potassium 5.1 H Chloride 107.6 H Carbon Dioxide BUN 27 H Creatinine 0.7 L Glucose 155 H POC Glucose 157 H Lactic Acid Calcium Phosphorus Magnesium AST ALT Lactate Dehydrogenase Total Bilirubin Direct Bilirubin CK-MB (CK-2) C-Reactive Protein NT-Pro-B Natriuret Pep Total Protein Albumin Arterial Blood Glucose Urine WBC (Auto) Urine Creatinine 12/07/19 12/07/19 12/07/19 00:13 05:34 11:33 WBC RBC Hgb Hct MCHC RDW MCV MCH Lymph % (Auto) [place] % (Auto) [place] # Eos # Lymph # (Auto) [place] # (Auto) Eos # (Auto) Seg Neutrophils % Seg Neuts % (Manual) Baso # (Auto) Lymphocytes % (Manual) Monocytes % (Manual) Eosinophils % (Manual) Basophils % (Manual) Seg Neutrophils # Seg Neutrophils # Man Lymphocytes # (Manual) Monocytes # (Manual) Eosinophils # (Manual) Nucleated RBC % Basophils # (Manual) PT INR APTT Heparin Anti-Xa Level ABG pH POC ABG pO2 ABG pO2 ABG HCO3 ABG O2 Saturation ABG Base Excess POC ABG pCO2 ABG Hemoglobin ABG Oxyhemoglobin ABG Sodium ABG Chloride ABG Glucose Oxyhemoglobin Sodium Potassium Chloride Carbon Dioxide BUN Creatinine Glucose POC Glucose 142 H 111 H 169 H Lactic Acid Calcium Phosphorus Magnesium AST ALT Lactate Dehydrogenase Total Bilirubin Direct Bilirubin CK-MB (CK-2) C-Reactive Protein NT-Pro-B Natriuret Pep Total Protein Albumin Arterial Blood Glucose Urine WBC (Auto) Urine Creatinine 12/07/19 12/07/19 12/07/19 12:41 13:25 18:19 WBC 12.4 H RBC 3.53 L Hgb 10.2 L Hct 32.1 L MCHC RDW 15.3 H MCV MCH Lymph % (Auto) 10.6 L [place] % (Auto) 7.8 H [place] # 1.0 H Eos # Lymph # (Auto) [place] # (Auto) Eos # (Auto) Seg Neutrophils % 77.6 H Seg Neuts % (Manual) Baso # (Auto) Lymphocytes % (Manual) Monocytes % (Manual) Eosinophils % (Manual) Basophils % (Manual) Seg Neutrophils # 9.6 H Seg Neutrophils # Man Lymphocytes # (Manual) Monocytes # (Manual) Eosinophils # (Manual) Nucleated RBC % Basophils # (Manual) PT INR APTT Heparin Anti-Xa Level ABG pH POC ABG pO2 ABG pO2 ABG HCO3 ABG O2 Saturation ABG Base Excess POC ABG pCO2 ABG Hemoglobin ABG Oxyhemoglobin ABG Sodium ABG Chloride ABG Glucose Oxyhemoglobin Sodium 149 H Potassium Chloride 108.4 H Carbon Dioxide BUN 26 H Creatinine 0.6 L Glucose 149 H POC Glucose 164 H Lactic Acid Calcium Phosphorus Magnesium 2.60 H AST 121 H ALT 145 H Lactate Dehydrogenase Total Bilirubin Direct Bilirubin CK-MB (CK-2) C-Reactive Protein NT-Pro-B Natriuret Pep Total Protein Albumin 2.6 L Arterial Blood Glucose Urine WBC (Auto) Urine Creatinine 12/07/19 12/08/19 12/08/19 22:25 00:02 03:55 WBC 13.3 H RBC 3.40 L Hgb 9.7 L Hct 30.8 L MCHC 31 L RDW 15.5 H MCV MCH Lymph % (Auto) [place] % (Auto) 8.1 H [place] # 1.1 H Eos # Lymph # (Auto) [place] # (Auto) Eos # (Auto) Seg Neutrophils % 73.0 H Seg Neuts % (Manual) Baso # (Auto) Lymphocytes % (Manual) Monocytes % (Manual) Eosinophils % (Manual) Basophils % (Manual) Seg Neutrophils # 9.7 H Seg Neutrophils # Man Lymphocytes # (Manual) Monocytes # (Manual) Eosinophils # (Manual) Nucleated RBC % Basophils # (Manual) PT INR APTT Heparin Anti-Xa Level 0.12 L ABG pH POC ABG pO2 ABG pO2 ABG HCO3 ABG O2 Saturation ABG Base Excess POC ABG pCO2 ABG Hemoglobin ABG Oxyhemoglobin ABG Sodium ABG Chloride ABG Glucose Oxyhemoglobin Sodium Potassium Chloride Carbon Dioxide BUN Creatinine Glucose POC Glucose 151 H Lactic Acid Calcium Phosphorus Magnesium AST ALT Lactate Dehydrogenase Total Bilirubin Direct Bilirubin CK-MB (CK-2) C-Reactive Protein NT-Pro-B Natriuret Pep Total Protein Albumin Arterial Blood Glucose Urine WBC (Auto) Urine Creatinine 12/08/19 12/08/19 12/08/19 03:55 05:21 06:01 WBC RBC Hgb Hct MCHC RDW MCV MCH Lymph % (Auto) [place] % (Auto) [place] # Eos # Lymph # (Auto) [place] # (Auto) Eos # (Auto) Seg Neutrophils % Seg Neuts % (Manual) Baso # (Auto) Lymphocytes % (Manual) Monocytes % (Manual) Eosinophils % (Manual) Basophils % (Manual) Seg Neutrophils # Seg Neutrophils # Man Lymphocytes # (Manual) Monocytes # (Manual) Eosinophils # (Manual) Nucleated RBC % Basophils # (Manual) PT INR APTT Heparin Anti-Xa Level 0.20 L ABG pH POC ABG pO2 ABG pO2 ABG HCO3 ABG O2 Saturation ABG Base Excess POC ABG pCO2 ABG Hemoglobin ABG Oxyhemoglobin ABG Sodium ABG Chloride ABG Glucose Oxyhemoglobin Sodium 149 H Potassium Chloride 108.0 H Carbon Dioxide BUN 28 H Creatinine 0.6 L Glucose 144 H POC Glucose 143 H Lactic Acid Calcium Phosphorus Magnesium AST 98 H ALT 145 H Lactate Dehydrogenase Total Bilirubin Direct Bilirubin CK-MB (CK-2) C-Reactive Protein NT-Pro-B Natriuret Pep Total Protein 6.0 L Albumin 2.4 L Arterial Blood Glucose Urine WBC (Auto) Urine Creatinine 12/08/19 12/08/19 12/08/19 12:08 18:11 23:53 WBC RBC Hgb Hct MCHC RDW MCV MCH Lymph % (Auto) [place] % (Auto) [place] # Eos # Lymph # (Auto) [place] # (Auto) Eos # (Auto) Seg Neutrophils % Seg Neuts % (Manual) Baso # (Auto) Lymphocytes % (Manual) Monocytes % (Manual) Eosinophils % (Manual) Basophils % (Manual) Seg Neutrophils # Seg Neutrophils # Man Lymphocytes # (Manual) Monocytes # (Manual) Eosinophils # (Manual) Nucleated RBC % Basophils # (Manual) PT INR APTT Heparin Anti-Xa Level ABG pH POC ABG pO2 ABG pO2 ABG HCO3 ABG O2 Saturation ABG Base Excess POC ABG pCO2 ABG Hemoglobin ABG Oxyhemoglobin ABG Sodium ABG Chloride ABG Glucose Oxyhemoglobin Sodium Potassium Chloride Carbon Dioxide BUN Creatinine Glucose POC Glucose 172 H 122 H 162 H Lactic Acid Calcium Phosphorus Magnesium AST ALT Lactate Dehydrogenase Total Bilirubin Direct Bilirubin CK-MB (CK-2) C-Reactive Protein NT-Pro-B Natriuret Pep Total Protein Albumin Arterial Blood Glucose Urine WBC (Auto) Urine Creatinine 12/09/19 12/09/19 12/09/19 04:03 04:03 05:53 WBC RBC Hgb 9.1 L Hct 28.9 L MCHC RDW MCV MCH Lymph % (Auto) [place] % (Auto) [place] # Eos # Lymph # (Auto) [place] # (Auto) Eos # (Auto) Seg Neutrophils % Seg Neuts % (Manual) Baso # (Auto) Lymphocytes % (Manual) Monocytes % (Manual) Eosinophils % (Manual) Basophils % (Manual) Seg Neutrophils # Seg Neutrophils # Man Lymphocytes # (Manual) Monocytes # (Manual) Eosinophils # (Manual) Nucleated RBC % Basophils # (Manual) PT INR APTT Heparin Anti-Xa Level 0.15 L ABG pH POC ABG pO2 ABG pO2 ABG HCO3 ABG O2 Saturation ABG Base Excess POC ABG pCO2 ABG Hemoglobin ABG Oxyhemoglobin ABG Sodium ABG Chloride ABG Glucose Oxyhemoglobin Sodium Potassium Chloride Carbon Dioxide BUN Creatinine Glucose POC Glucose 124 H Lactic Acid Calcium Phosphorus Magnesium AST ALT Lactate Dehydrogenase Total Bilirubin Direct Bilirubin CK-MB (CK-2) C-Reactive Protein NT-Pro-B Natriuret Pep Total Protein Albumin Arterial Blood Glucose Urine WBC (Auto) Urine Creatinine 12/09/19 12/09/19 12/10/19 09:43 12:41 00:13 WBC RBC Hgb Hct MCHC RDW MCV MCH Lymph % (Auto) [place] % (Auto) [place] # Eos # Lymph # (Auto) [place] # (Auto) Eos # (Auto) Seg Neutrophils % Seg Neuts % (Manual) Baso # (Auto) Lymphocytes % (Manual) Monocytes % (Manual) Eosinophils % (Manual) Basophils % (Manual) Seg Neutrophils # Seg Neutrophils # Man Lymphocytes # (Manual) Monocytes # (Manual) Eosinophils # (Manual) Nucleated RBC % Basophils # (Manual) PT INR APTT Heparin Anti-Xa Level ABG pH POC ABG pO2 ABG pO2 ABG HCO3 ABG O2 Saturation ABG Base Excess POC ABG pCO2 ABG Hemoglobin ABG Oxyhemoglobin ABG Sodium ABG Chloride ABG Glucose Oxyhemoglobin Sodium Potassium Chloride Carbon Dioxide BUN 25 H Creatinine 0.6 L Glucose 131 H POC Glucose 109 H 120 H Lactic Acid Calcium Phosphorus Magnesium AST ALT Lactate Dehydrogenase Total Bilirubin Direct Bilirubin CK-MB (CK-2) C-Reactive Protein NT-Pro-B Natriuret Pep Total Protein Albumin Arterial Blood Glucose Urine WBC (Auto) Urine Creatinine 12/10/19 12/10/19 12/10/19 04:14 04:14 12:00 WBC 13.3 H RBC 3.34 L Hgb 9.6 L Hct 30.4 L MCHC RDW 15.4 H MCV MCH Lymph % (Auto) [place] % (Auto) [place] # Eos # Lymph # (Auto) [place] # (Auto) Eos # (Auto) Seg Neutrophils % Seg Neuts % (Manual) 75.0 H Baso # (Auto) Lymphocytes % (Manual) 13.0 L Monocytes % (Manual) 8.0 H Eosinophils % (Manual) Basophils % (Manual) 2.0 H Seg Neutrophils # Seg Neutrophils # Man 10.0 H Lymphocytes # (Manual) Monocytes # (Manual) 1.1 H Eosinophils # (Manual) Nucleated RBC % Basophils # (Manual) 0.3 H PT INR APTT Heparin Anti-Xa Level ABG pH POC ABG pO2 ABG pO2 ABG HCO3 ABG O2 Saturation ABG Base Excess POC ABG pCO2 ABG Hemoglobin ABG Oxyhemoglobin ABG Sodium ABG Chloride ABG Glucose Oxyhemoglobin Sodium 147 H Potassium Chloride 108.3 H Carbon Dioxide BUN 21 H Creatinine 0.6 L Glucose 104 H POC Glucose 133 H Lactic Acid Calcium Phosphorus Magnesium AST ALT Lactate Dehydrogenase Total Bilirubin Direct Bilirubin CK-MB (CK-2) C-Reactive Protein NT-Pro-B Natriuret Pep Total Protein Albumin Arterial Blood Glucose Urine WBC (Auto) Urine Creatinine 12/10/19 12/10/19 12/11/19 18:44 21:20 00:08 WBC 14.9 H RBC 3.36 L Hgb 9.6 L Hct 30.5 L MCHC RDW 15.4 H MCV MCH Lymph % (Auto) [place] % (Auto) [place] # Eos # Lymph # (Auto) [place] # (Auto) Eos # (Auto) Seg Neutrophils % Seg Neuts % (Manual) Baso # (Auto) Lymphocytes % (Manual) Monocytes % (Manual) Eosinophils % (Manual) Basophils % (Manual) Seg Neutrophils # Seg Neutrophils # Man Lymphocytes # (Manual) Monocytes # (Manual) Eosinophils # (Manual) Nucleated RBC % Basophils # (Manual) PT INR APTT Heparin Anti-Xa Level ABG pH POC ABG pO2 ABG pO2 ABG HCO3 ABG O2 Saturation ABG Base Excess POC ABG pCO2 ABG Hemoglobin ABG Oxyhemoglobin ABG Sodium ABG Chloride ABG Glucose Oxyhemoglobin Sodium Potassium Chloride Carbon Dioxide BUN Creatinine Glucose POC Glucose 119 H 134 H Lactic Acid Calcium Phosphorus Magnesium AST ALT Lactate Dehydrogenase Total Bilirubin Direct Bilirubin CK-MB (CK-2) C-Reactive Protein NT-Pro-B Natriuret Pep Total Protein Albumin Arterial Blood Glucose Urine WBC (Auto) Urine Creatinine 12/11/19 12/11/19 12/11/19 03:54 07:28 08:36 WBC 11.9 H RBC 3.25 L Hgb 9.6 L Hct 29.2 L MCHC RDW 15.7 H MCV MCH Lymph % (Auto) [place] % (Auto) [place] # Eos # Lymph # (Auto) [place] # (Auto) Eos # (Auto) Seg Neutrophils % Seg Neuts % (Manual) Baso # (Auto) Lymphocytes % (Manual) Monocytes % (Manual) Eosinophils % (Manual) Basophils % (Manual) Seg Neutrophils # Seg Neutrophils # Man Lymphocytes # (Manual) Monocytes # (Manual) Eosinophils # (Manual) Nucleated RBC % Basophils # (Manual) PT INR APTT Heparin Anti-Xa Level 0.10 L 0.16 L ABG pH POC ABG pO2 ABG pO2 ABG HCO3 ABG O2 Saturation ABG Base Excess POC ABG pCO2 ABG Hemoglobin ABG Oxyhemoglobin ABG Sodium ABG Chloride ABG Glucose Oxyhemoglobin Sodium Potassium Chloride Carbon Dioxide BUN Creatinine Glucose POC Glucose Lactic Acid Calcium Phosphorus Magnesium AST ALT Lactate Dehydrogenase Total Bilirubin Direct Bilirubin CK-MB (CK-2) C-Reactive Protein NT-Pro-B Natriuret Pep Total Protein Albumin Arterial Blood Glucose Urine WBC (Auto) Urine Creatinine 12/11/19 12/11/19 12/11/19 08:36 11:45 17:15 WBC RBC Hgb Hct MCHC RDW MCV MCH Lymph % (Auto) [place] % (Auto) [place] # Eos # Lymph # (Auto) [place] # (Auto) Eos # (Auto) Seg Neutrophils % Seg Neuts % (Manual) Baso # (Auto) Lymphocytes % (Manual) Monocytes % (Manual) Eosinophils % (Manual) Basophils % (Manual) Seg Neutrophils # Seg Neutrophils # Man Lymphocytes # (Manual) Monocytes # (Manual) Eosinophils # (Manual) Nucleated RBC % Basophils # (Manual) PT INR APTT Heparin Anti-Xa Level ABG pH POC ABG pO2 ABG pO2 ABG HCO3 ABG O2 Saturation ABG Base Excess POC ABG pCO2 ABG Hemoglobin ABG Oxyhemoglobin ABG Sodium ABG Chloride ABG Glucose Oxyhemoglobin Sodium Potassium Chloride Carbon Dioxide BUN Creatinine 0.5 L Glucose 128 H POC Glucose 136 H 109 H Lactic Acid Calcium Phosphorus Magnesium AST ALT Lactate Dehydrogenase Total Bilirubin Direct Bilirubin CK-MB (CK-2) C-Reactive Protein NT-Pro-B Natriuret Pep Total Protein Albumin Arterial Blood Glucose Urine WBC (Auto) Urine Creatinine 12/12/19 12/12/19 12/12/19 00:03 05:53 05:53 WBC RBC Hgb 8.8 L Hct 27.6 L MCHC RDW MCV MCH Lymph % (Auto) [place] % (Auto) [place] # Eos # Lymph # (Auto) [place] # (Auto) Eos # (Auto) Seg Neutrophils % Seg Neuts % (Manual) Baso # (Auto) Lymphocytes % (Manual) Monocytes % (Manual) Eosinophils % (Manual) Basophils % (Manual) Seg Neutrophils # Seg Neutrophils # Man Lymphocytes # (Manual) Monocytes # (Manual) Eosinophils # (Manual) Nucleated RBC % Basophils # (Manual) PT INR APTT Heparin Anti-Xa Level 0.22 L ABG pH POC ABG pO2 ABG pO2 ABG HCO3 ABG O2 Saturation ABG Base Excess POC ABG pCO2 ABG Hemoglobin ABG Oxyhemoglobin ABG Sodium ABG Chloride ABG Glucose Oxyhemoglobin Sodium Potassium Chloride Carbon Dioxide BUN Creatinine Glucose POC Glucose 116 H Lactic Acid Calcium Phosphorus Magnesium AST ALT Lactate Dehydrogenase Total Bilirubin Direct Bilirubin CK-MB (CK-2) C-Reactive Protein NT-Pro-B Natriuret Pep Total Protein Albumin Arterial Blood Glucose Urine WBC (Auto) Urine Creatinine 12/12/19 12/12/19 12/12/19 09:38 12:18 17:44 WBC RBC Hgb Hct MCHC RDW MCV MCH Lymph % (Auto) [place] % (Auto) [place] # Eos # Lymph # (Auto) [place] # (Auto) Eos # (Auto) Seg Neutrophils % Seg Neuts % (Manual) Baso # (Auto) Lymphocytes % (Manual) Monocytes % (Manual) Eosinophils % (Manual) Basophils % (Manual) Seg Neutrophils # Seg Neutrophils # Man Lymphocytes # (Manual) Monocytes # (Manual) Eosinophils # (Manual) Nucleated RBC % Basophils # (Manual) PT INR APTT Heparin Anti-Xa Level ABG pH POC ABG pO2 ABG pO2 ABG HCO3 ABG O2 Saturation ABG Base Excess POC ABG pCO2 ABG Hemoglobin ABG Oxyhemoglobin ABG Sodium ABG Chloride ABG Glucose Oxyhemoglobin Sodium Potassium Chloride Carbon Dioxide BUN Creatinine Glucose POC Glucose 115 H 146 H 146 H Lactic Acid Calcium Phosphorus Magnesium AST ALT Lactate Dehydrogenase Total Bilirubin Direct Bilirubin CK-MB (CK-2) C-Reactive Protein NT-Pro-B Natriuret Pep Total Protein Albumin Arterial Blood Glucose Urine WBC (Auto) Urine Creatinine 12/12/19 12/13/19 12/13/19 23:33 05:32 05:32 WBC 13.1 H RBC 3.27 L Hgb 9.5 L Hct 29.3 L MCHC RDW 15.6 H MCV MCH Lymph % (Auto) [place] % (Auto) [place] # Eos # Lymph # (Auto) [place] # (Auto) Eos # (Auto) Seg Neutrophils % Seg Neuts % (Manual) 74.0 H Baso # (Auto) Lymphocytes % (Manual) 8.0 L Monocytes % (Manual) 9.0 H Eosinophils % (Manual) 5.0 H Basophils % (Manual) Seg Neutrophils # Seg Neutrophils # Man 9.7 H Lymphocytes # (Manual) 1.0 L Monocytes # (Manual) 1.2 H Eosinophils # (Manual) 0.7 H Nucleated RBC % Basophils # (Manual) PT INR APTT Heparin Anti-Xa Level 0.20 L ABG pH POC ABG pO2 ABG pO2 ABG HCO3 ABG O2 Saturation ABG Base Excess POC ABG pCO2 ABG Hemoglobin ABG Oxyhemoglobin ABG Sodium ABG Chloride ABG Glucose Oxyhemoglobin Sodium Potassium Chloride Carbon Dioxide BUN Creatinine Glucose POC Glucose 126 H Lactic Acid Calcium Phosphorus Magnesium AST ALT Lactate Dehydrogenase Total Bilirubin Direct Bilirubin CK-MB (CK-2) C-Reactive Protein NT-Pro-B Natriuret Pep Total Protein Albumin Arterial Blood Glucose Urine WBC (Auto) Urine Creatinine 12/13/19 12/13/19 12/13/19 05:32 05:46 11:57 WBC RBC Hgb Hct MCHC RDW MCV MCH Lymph % (Auto) [place] % (Auto) [place] # Eos # Lymph # (Auto) [place] # (Auto) Eos # (Auto) Seg Neutrophils % Seg Neuts % (Manual) Baso # (Auto) Lymphocytes % (Manual) Monocytes % (Manual) Eosinophils % (Manual) Basophils % (Manual) Seg Neutrophils # Seg Neutrophils # Man Lymphocytes # (Manual) Monocytes # (Manual) Eosinophils # (Manual) Nucleated RBC % Basophils # (Manual) PT INR APTT Heparin Anti-Xa Level ABG pH POC ABG pO2 ABG pO2 ABG HCO3 ABG O2 Saturation ABG Base Excess POC ABG pCO2 ABG Hemoglobin ABG Oxyhemoglobin ABG Sodium ABG Chloride ABG Glucose Oxyhemoglobin Sodium Potassium Chloride Carbon Dioxide 31 H BUN Creatinine 0.6 L Glucose 114 H POC Glucose 118 H 133 H Lactic Acid Calcium Phosphorus Magnesium AST ALT Lactate Dehydrogenase Total Bilirubin Direct Bilirubin CK-MB (CK-2) C-Reactive Protein NT-Pro-B Natriuret Pep Total Protein Albumin Arterial Blood Glucose Urine WBC (Auto) Urine Creatinine 12/13/19 12/13/1912/13/20 17:44 23:46 05:32 WBC RBC Hgb Hct MCHC RDW MCV MCH Lymph % (Auto) [place] % (Auto) [place] # Eos # Lymph # (Auto) [place] # (Auto) Eos # (Auto) Seg Neutrophils % Seg Neuts % (Manual) Baso # (Auto) Lymphocytes % (Manual) Monocytes % (Manual) Eosinophils % (Manual) Basophils % (Manual) Seg Neutrophils # Seg Neutrophils # Man Lymphocytes # (Manual) Monocytes # (Manual) Eosinophils # (Manual) Nucleated RBC % Basophils # (Manual) PT INR APTT Heparin Anti-Xa Level ABG pH POC ABG pO2 ABG pO2 ABG HCO3 ABG O2 Saturation ABG Base Excess POC ABG pCO2 ABG Hemoglobin ABG Oxyhemoglobin ABG Sodium ABG Chloride ABG Glucose Oxyhemoglobin Sodium Potassium Chloride Carbon Dioxide BUN Creatinine Glucose POC Glucose 161 H 126 H 139 H Lactic Acid Calcium Phosphorus Magnesium AST ALT Lactate Dehydrogenase Total Bilirubin Direct Bilirubin CK-MB (CK-2) C-Reactive Protein NT-Pro-B Natriuret Pep Total Protein Albumin Arterial Blood Glucose Urine WBC (Auto) Urine Creatinine 12/14/19 12/14/19 12/14/19 06:03 06:03 09:37 WBC RBC Hgb 9.6 L Hct 30.4 L MCHC RDW MCV MCH Lymph % (Auto) [place] % (Auto) [place] # Eos # Lymph # (Auto) [place] # (Auto) Eos # (Auto) Seg Neutrophils % Seg Neuts % (Manual) Baso # (Auto) Lymphocytes % (Manual) Monocytes % (Manual) Eosinophils % (Manual) Basophils % (Manual) Seg Neutrophils # Seg Neutrophils # Man Lymphocytes # (Manual) Monocytes # (Manual) Eosinophils # (Manual) Nucleated RBC % Basophils # (Manual) PT INR APTT Heparin Anti-Xa Level 0.24 L ABG pH POC ABG pO2 ABG pO2 ABG HCO3 ABG O2 Saturation ABG Base Excess POC ABG pCO2 ABG Hemoglobin ABG Oxyhemoglobin ABG Sodium ABG Chloride ABG Glucose Oxyhemoglobin Sodium Potassium Chloride Carbon Dioxide BUN Creatinine 0.6 L Glucose 162 H POC Glucose Lactic Acid Calcium Phosphorus Magnesium AST 71 H ALT 118 H Lactate Dehydrogenase Total Bilirubin Direct Bilirubin CK-MB (CK-2) C-Reactive Protein NT-Pro-B Natriuret Pep Total Protein 6.2 L Albumin 2.3 L Arterial Blood Glucose Urine WBC (Auto) Urine Creatinine 12/14/19 12/14/19 12/15/19 12:06 18:18 00:19 WBC RBC Hgb Hct MCHC RDW MCV MCH Lymph % (Auto) [place] % (Auto) [place] # Eos # Lymph # (Auto) [place] # (Auto) Eos # (Auto) Seg Neutrophils % Seg Neuts % (Manual) Baso # (Auto) Lymphocytes % (Manual) Monocytes % (Manual) Eosinophils % (Manual) Basophils % (Manual) Seg Neutrophils # Seg Neutrophils # Man Lymphocytes # (Manual) Monocytes # (Manual) Eosinophils # (Manual) Nucleated RBC % Basophils # (Manual) PT INR APTT Heparin Anti-Xa Level ABG pH POC ABG pO2 ABG pO2 ABG HCO3 ABG O2 Saturation ABG Base Excess POC ABG pCO2 ABG Hemoglobin ABG Oxyhemoglobin ABG Sodium ABG Chloride ABG Glucose Oxyhemoglobin Sodium Potassium Chloride Carbon Dioxide BUN Creatinine Glucose POC Glucose 147 H 166 H 123 H Lactic Acid Calcium Phosphorus Magnesium AST ALT Lactate Dehydrogenase Total Bilirubin Direct Bilirubin CK-MB (CK-2) C-Reactive Protein NT-Pro-B Natriuret Pep Total Protein Albumin Arterial Blood Glucose Urine WBC (Auto) Urine Creatinine 12/15/19 12/15/19 12/15/19 05:28 05:29 05:29 WBC 14.9 H RBC 3.19 L Hgb 9.1 L Hct 28.7 L MCHC RDW 16.0 H MCV MCH Lymph % (Auto) [place] % (Auto) [place] # Eos # Lymph # (Auto) [place] # (Auto) Eos # (Auto) Seg Neutrophils % Seg Neuts % (Manual) Baso # (Auto) Lymphocytes % (Manual) Monocytes % (Manual) Eosinophils % (Manual) Basophils % (Manual) Seg Neutrophils # Seg Neutrophils # Man Lymphocytes # (Manual) Monocytes # (Manual) Eosinophils # (Manual) Nucleated RBC % Basophils # (Manual) PT INR APTT Heparin Anti-Xa Level 0.19 L ABG pH POC ABG pO2 ABG pO2 ABG HCO3 ABG O2 Saturation ABG Base Excess POC ABG pCO2 ABG Hemoglobin ABG Oxyhemoglobin ABG Sodium ABG Chloride ABG Glucose Oxyhemoglobin Sodium Potassium Chloride Carbon Dioxide BUN Creatinine 0.6 L Glucose 110 H POC Glucose Lactic Acid Calcium Phosphorus Magnesium AST ALT Lactate Dehydrogenase Total Bilirubin Direct Bilirubin CK-MB (CK-2) C-Reactive Protein NT-Pro-B Natriuret Pep Total Protein Albumin Arterial Blood Glucose Urine WBC (Auto) Urine Creatinine 12/15/19 12/15/19 12/15/19 05:53 11:50 17:26 WBC RBC Hgb Hct MCHC RDW MCV MCH Lymph % (Auto) [place] % (Auto) [place] # Eos # Lymph # (Auto) [place] # (Auto) Eos # (Auto) Seg Neutrophils % Seg Neuts % (Manual) Baso # (Auto) Lymphocytes % (Manual) Monocytes % (Manual) Eosinophils % (Manual) Basophils % (Manual) Seg Neutrophils # Seg Neutrophils # Man Lymphocytes # (Manual) Monocytes # (Manual) Eosinophils # (Manual) Nucleated RBC % Basophils # (Manual) PT INR APTT Heparin Anti-Xa Level ABG pH POC ABG pO2 ABG pO2 ABG HCO3 ABG O2 Saturation ABG Base Excess POC ABG pCO2 ABG Hemoglobin ABG Oxyhemoglobin ABG Sodium ABG Chloride ABG Glucose Oxyhemoglobin Sodium Potassium Chloride Carbon Dioxide BUN Creatinine Glucose POC Glucose 119 H 132 H 128 H Lactic Acid Calcium Phosphorus Magnesium AST ALT Lactate Dehydrogenase Total Bilirubin Direct Bilirubin CK-MB (CK-2) C-Reactive Protein NT-Pro-B Natriuret Pep Total Protein Albumin Arterial Blood Glucose Urine WBC (Auto) Urine Creatinine 12/15/19 12/16/19 12/16/19 23:11 05:30 05:46 WBC RBC Hgb 8.8 L Hct 27.9 L MCHC RDW MCV MCH Lymph % (Auto) [place] % (Auto) [place] # Eos # Lymph # (Auto) [place] # (Auto) Eos # (Auto) Seg Neutrophils % Seg Neuts % (Manual) Baso # (Auto) Lymphocytes % (Manual) Monocytes % (Manual) Eosinophils % (Manual) Basophils % (Manual) Seg Neutrophils # Seg Neutrophils # Man Lymphocytes # (Manual) Monocytes # (Manual) Eosinophils # (Manual) Nucleated RBC % Basophils # (Manual) PT INR APTT Heparin Anti-Xa Level ABG pH POC ABG pO2 ABG pO2 ABG HCO3 ABG O2 Saturation ABG Base Excess POC ABG pCO2 ABG Hemoglobin ABG Oxyhemoglobin ABG Sodium ABG Chloride ABG Glucose Oxyhemoglobin Sodium Potassium Chloride Carbon Dioxide BUN Creatinine Glucose POC Glucose 150 H 134 H Lactic Acid Calcium Phosphorus Magnesium AST ALT Lactate Dehydrogenase Total Bilirubin Direct Bilirubin CK-MB (CK-2) C-Reactive Protein NT-Pro-B Natriuret Pep Total Protein Albumin Arterial Blood Glucose Urine WBC (Auto) Urine Creatinine 12/16/19 12/16/19 12/16/19 05:46 05:46 11:44 WBC RBC Hgb Hct MCHC RDW MCV MCH Lymph % (Auto) [place] % (Auto) [place] # Eos # Lymph # (Auto) [place] # (Auto) Eos # (Auto) Seg Neutrophils % Seg Neuts % (Manual) Baso # (Auto) Lymphocytes % (Manual) Monocytes % (Manual) Eosinophils % (Manual) Basophils % (Manual) Seg Neutrophils # Seg Neutrophils # Man Lymphocytes # (Manual) Monocytes # (Manual) Eosinophils # (Manual) Nucleated RBC % Basophils # (Manual) PT INR APTT Heparin Anti-Xa Level 0.20 L ABG pH POC ABG pO2 ABG pO2 ABG HCO3 ABG O2 Saturation ABG Base Excess POC ABG pCO2 ABG Hemoglobin ABG Oxyhemoglobin ABG Sodium ABG Chloride ABG Glucose Oxyhemoglobin Sodium Potassium Chloride Carbon Dioxide 31 H BUN Creatinine 0.5 L Glucose 147 H POC Glucose 164 H Lactic Acid Calcium Phosphorus Magnesium AST ALT Lactate Dehydrogenase Total Bilirubin Direct Bilirubin CK-MB (CK-2) C-Reactive Protein NT-Pro-B Natriuret Pep Total Protein Albumin Arterial Blood Glucose Urine WBC (Auto) Urine Creatinine 12/16/19 12/16/19 12/17/19 17:17 23:49 05:30 WBC 13.9 H RBC 3.27 L Hgb 9.4 L Hct 29.2 L MCHC RDW 16.0 H MCV MCH Lymph % (Auto) [place] % (Auto) 8.8 H [place] # Eos # Lymph # (Auto) [place] # (Auto) 1.2 H Eos # (Auto) 0.5 H Seg Neutrophils % 70.5 H Seg Neuts % (Manual) Baso # (Auto) 0.2 H Lymphocytes % (Manual) Monocytes % (Manual) Eosinophils % (Manual) Basophils % (Manual) Seg Neutrophils # 9.8 H Seg Neutrophils # Man Lymphocytes # (Manual) Monocytes # (Manual) Eosinophils # (Manual) Nucleated RBC % Basophils # (Manual) PT INR APTT Heparin Anti-Xa Level ABG pH POC ABG pO2 ABG pO2 ABG HCO3 ABG O2 Saturation ABG Base Excess POC ABG pCO2 ABG Hemoglobin ABG Oxyhemoglobin ABG Sodium ABG Chloride ABG Glucose Oxyhemoglobin Sodium Potassium Chloride Carbon Dioxide BUN Creatinine Glucose POC Glucose 162 H 144 H Lactic Acid Calcium Phosphorus Magnesium AST ALT Lactate Dehydrogenase Total Bilirubin Direct Bilirubin CK-MB (CK-2) C-Reactive Protein NT-Pro-B Natriuret Pep Total Protein Albumin Arterial Blood Glucose Urine WBC (Auto) Urine Creatinine 12/17/19 12/17/19 12/17/19 05:30 06:06 11:50 WBC RBC Hgb Hct MCHC RDW MCV MCH Lymph % (Auto) [place] % (Auto) [place] # Eos # Lymph # (Auto) [place] # (Auto) Eos # (Auto) Seg Neutrophils % Seg Neuts % (Manual) Baso # (Auto) Lymphocytes % (Manual) Monocytes % (Manual) Eosinophils % (Manual) Basophils % (Manual) Seg Neutrophils # Seg Neutrophils # Man Lymphocytes # (Manual) Monocytes # (Manual) Eosinophils # (Manual) Nucleated RBC % Basophils # (Manual) PT INR APTT Heparin Anti-Xa Level ABG pH POC ABG pO2 ABG pO2 ABG HCO3 ABG O2 Saturation ABG Base Excess POC ABG pCO2 ABG Hemoglobin ABG Oxyhemoglobin ABG Sodium ABG Chloride ABG Glucose Oxyhemoglobin Sodium Potassium Chloride 97.4 L Carbon Dioxide 32 H BUN Creatinine 0.5 L Glucose 135 H POC Glucose 151 H 140 H Lactic Acid Calcium Phosphorus Magnesium AST ALT Lactate Dehydrogenase Total Bilirubin Direct Bilirubin CK-MB (CK-2) C-Reactive Protein NT-Pro-B Natriuret Pep Total Protein Albumin Arterial Blood Glucose Urine WBC (Auto) Urine Creatinine 12/17/19 12/17/19 12/18/19 17:50 23:46 05:17 WBC RBC Hgb 8.8 L Hct 28.0 L MCHC RDW MCV MCH Lymph % (Auto) [place] % (Auto) [place] # Eos # Lymph # (Auto) [place] # (Auto) Eos # (Auto) Seg Neutrophils % Seg Neuts % (Manual) Baso # (Auto) Lymphocytes % (Manual) Monocytes % (Manual) Eosinophils % (Manual) Basophils % (Manual) Seg Neutrophils # Seg Neutrophils # Man Lymphocytes # (Manual) Monocytes # (Manual) Eosinophils # (Manual) Nucleated RBC % Basophils # (Manual) PT INR APTT Heparin Anti-Xa Level ABG pH POC ABG pO2 ABG pO2 ABG HCO3 ABG O2 Saturation ABG Base Excess POC ABG pCO2 ABG Hemoglobin ABG Oxyhemoglobin ABG Sodium ABG Chloride ABG Glucose Oxyhemoglobin Sodium Potassium Chloride Carbon Dioxide BUN Creatinine Glucose POC Glucose 158 H 150 H Lactic Acid Calcium Phosphorus Magnesium AST ALT Lactate Dehydrogenase Total Bilirubin Direct Bilirubin CK-MB (CK-2) C-Reactive Protein NT-Pro-B Natriuret Pep Total Protein Albumin Arterial Blood Glucose Urine WBC (Auto) Urine Creatinine 12/18/19 12/18/19 12/18/19 05:17 05:49 11:12 WBC RBC Hgb Hct MCHC RDW MCV MCH Lymph % (Auto) [place] % (Auto) [place] # Eos # Lymph # (Auto) [place] # (Auto) Eos # (Auto) Seg Neutrophils % Seg Neuts % (Manual) Baso # (Auto) Lymphocytes % (Manual) Monocytes % (Manual) Eosinophils % (Manual) Basophils % (Manual) Seg Neutrophils # Seg Neutrophils # Man Lymphocytes # (Manual) Monocytes # (Manual) Eosinophils # (Manual) Nucleated RBC % Basophils # (Manual) PT INR APTT Heparin Anti-Xa Level 0.16 L ABG pH POC ABG pO2 ABG pO2 ABG HCO3 ABG O2 Saturation ABG Base Excess POC ABG pCO2 ABG Hemoglobin ABG Oxyhemoglobin ABG Sodium ABG Chloride ABG Glucose Oxyhemoglobin Sodium Potassium Chloride Carbon Dioxide BUN Creatinine Glucose POC Glucose 127 H 191 H Lactic Acid Calcium Phosphorus Magnesium AST ALT Lactate Dehydrogenase Total Bilirubin Direct Bilirubin CK-MB (CK-2) C-Reactive Protein NT-Pro-B Natriuret Pep Total Protein Albumin Arterial Blood Glucose Urine WBC (Auto) Urine Creatinine 12/18/19 12/18/19 12/19/19 17:03 20:16 00:08 WBC RBC Hgb Hct MCHC RDW MCV MCH Lymph % (Auto) [place] % (Auto) [place] # Eos # Lymph # (Auto) [place] # (Auto) Eos # (Auto) Seg Neutrophils % Seg Neuts % (Manual) Baso # (Auto) Lymphocytes % (Manual) Monocytes % (Manual) Eosinophils % (Manual) Basophils % (Manual) Seg Neutrophils # Seg Neutrophils # Man Lymphocytes # (Manual) Monocytes # (Manual) Eosinophils # (Manual) Nucleated RBC % Basophils # (Manual) PT INR APTT Heparin Anti-Xa Level ABG pH POC ABG pO2 ABG pO2 ABG HCO3 ABG O2 Saturation ABG Base Excess POC ABG pCO2 ABG Hemoglobin ABG Oxyhemoglobin ABG Sodium ABG Chloride ABG Glucose Oxyhemoglobin Sodium Potassium Chloride Carbon Dioxide BUN Creatinine Glucose POC Glucose 133 H 128 H 129 H Lactic Acid Calcium Phosphorus Magnesium AST ALT Lactate Dehydrogenase Total Bilirubin Direct Bilirubin CK-MB (CK-2) C-Reactive Protein NT-Pro-B Natriuret Pep Total Protein Albumin Arterial Blood Glucose Urine WBC (Auto) Urine Creatinine 12/19/19 12/19/19 12/19/19 04:45 04:45 05:35 WBC RBC Hgb Hct MCHC RDW MCV MCH Lymph % (Auto) [place] % (Auto) [place] # Eos # Lymph # (Auto) [place] # (Auto) Eos # (Auto) Seg Neutrophils % Seg Neuts % (Manual) Baso # (Auto) Lymphocytes % (Manual) Monocytes % (Manual) Eosinophils % (Manual) Basophils % (Manual) Seg Neutrophils # Seg Neutrophils # Man Lymphocytes # (Manual) Monocytes # (Manual) Eosinophils # (Manual) Nucleated RBC % Basophils # (Manual) PT INR APTT Heparin Anti-Xa Level 0.17 L ABG pH POC ABG pO2 ABG pO2 ABG HCO3 ABG O2 Saturation ABG Base Excess POC ABG pCO2 ABG Hemoglobin ABG Oxyhemoglobin ABG Sodium ABG Chloride ABG Glucose Oxyhemoglobin Sodium Potassium Chloride Carbon Dioxide BUN Creatinine Glucose POC Glucose 120 H Lactic Acid Calcium Phosphorus Magnesium AST ALT Lactate Dehydrogenase 228 H Total Bilirubin Direct Bilirubin CK-MB (CK-2) C-Reactive Protein NT-Pro-B Natriuret Pep Total Protein Albumin Arterial Blood Glucose Urine WBC (Auto) Urine Creatinine 12/19/19 12/19/19 12/19/19 09:20 11:32 11:32 WBC 14.6 H RBC 3.08 L Hgb 9.0 L Hct 26.8 L MCHC RDW 15.9 H MCV MCH Lymph % (Auto) [place] % (Auto) [place] # Eos # Lymph # (Auto) [place] # (Auto) Eos # (Auto) Seg Neutrophils % Seg Neuts % (Manual) 82.0 H Baso # (Auto) Lymphocytes % (Manual) 10.0 L Monocytes % (Manual) Eosinophils % (Manual) Basophils % (Manual) Seg Neutrophils # Seg Neutrophils # Man 12.0 H Lymphocytes # (Manual) Monocytes # (Manual) 0.9 H Eosinophils # (Manual) Nucleated RBC % 1.0 H Basophils # (Manual) PT INR APTT Heparin Anti-Xa Level ABG pH 7.451 H POC ABG pO2 ABG pO2 62.6 L ABG HCO3 33.2 H ABG O2 Saturation 93.8 L ABG Base Excess 8.3 H POC ABG pCO2 ABG Hemoglobin 8.3 L ABG Oxyhemoglobin ABG Sodium ABG Chloride ABG Glucose Oxyhemoglobin 91.9 L Sodium Potassium Chloride 95.0 L Carbon Dioxide 33 H BUN 22 H Creatinine 0.6 L Glucose 150 H POC Glucose Lactic Acid Calcium Phosphorus Magnesium AST ALT Lactate Dehydrogenase Total Bilirubin Direct Bilirubin CK-MB (CK-2) C-Reactive Protein NT-Pro-B Natriuret Pep Total Protein 6.2 L Albumin 2.4 L Arterial Blood Glucose Urine WBC (Auto) Urine Creatinine 12/19/19 12/19/19 12/20/19 11:56 18:17 00:09 WBC RBC Hgb Hct MCHC RDW MCV MCH Lymph % (Auto) [place] % (Auto) [place] # Eos # Lymph # (Auto) [place] # (Auto) Eos # (Auto) Seg Neutrophils % Seg Neuts % (Manual) Baso # (Auto) Lymphocytes % (Manual) Monocytes % (Manual) Eosinophils % (Manual) Basophils % (Manual) Seg Neutrophils # Seg Neutrophils # Man Lymphocytes # (Manual) Monocytes # (Manual) Eosinophils # (Manual) Nucleated RBC % Basophils # (Manual) PT INR APTT Heparin Anti-Xa Level ABG pH POC ABG pO2 ABG pO2 ABG HCO3 ABG O2 Saturation ABG Base Excess POC ABG pCO2 ABG Hemoglobin ABG Oxyhemoglobin ABG Sodium ABG Chloride ABG Glucose Oxyhemoglobin Sodium Potassium Chloride Carbon Dioxide BUN Creatinine Glucose POC Glucose 156 H 156 H 155 H Lactic Acid Calcium Phosphorus Magnesium AST ALT Lactate Dehydrogenase Total Bilirubin Direct Bilirubin CK-MB (CK-2) C-Reactive Protein NT-Pro-B Natriuret Pep Total Protein Albumin Arterial Blood Glucose Urine WBC (Auto) Urine Creatinine 12/20/19 12/20/19 12/20/19 05:26 06:02 18:17 WBC RBC Hgb Hct MCHC RDW MCV MCH Lymph % (Auto) [place] % (Auto) [place] # Eos # Lymph # (Auto) [place] # (Auto) Eos # (Auto) Seg Neutrophils % Seg Neuts % (Manual) Baso # (Auto) Lymphocytes % (Manual) Monocytes % (Manual) Eosinophils % (Manual) Basophils % (Manual) Seg Neutrophils # Seg Neutrophils # Man Lymphocytes # (Manual) Monocytes # (Manual) Eosinophils # (Manual) Nucleated RBC % Basophils # (Manual) PT INR APTT Heparin Anti-Xa Level 0.19 L ABG pH POC ABG pO2 ABG pO2 ABG HCO3 ABG O2 Saturation ABG Base Excess POC ABG pCO2 ABG Hemoglobin ABG Oxyhemoglobin ABG Sodium ABG Chloride ABG Glucose Oxyhemoglobin Sodium Potassium Chloride Carbon Dioxide BUN Creatinine Glucose POC Glucose 137 H 128 H Lactic Acid Calcium Phosphorus Magnesium AST ALT Lactate Dehydrogenase Total Bilirubin Direct Bilirubin CK-MB (CK-2) C-Reactive Protein NT-Pro-B Natriuret Pep Total Protein Albumin Arterial Blood Glucose Urine WBC (Auto) Urine Creatinine 12/20/19 12/21/19 12/21/19 23:34 05:31 05:31 WBC 12.7 H RBC 3.09 L Hgb 8.9 L Hct 27.4 L MCHC RDW 15.8 H MCV MCH Lymph % (Auto) 12.1 L [place] % (Auto) 7.8 H [place] # Eos # Lymph # (Auto) [place] # (Auto) 1.0 H Eos # (Auto) Seg Neutrophils % 77.1 H Seg Neuts % (Manual) Baso # (Auto) Lymphocytes % (Manual) Monocytes % (Manual) Eosinophils % (Manual) Basophils % (Manual) Seg Neutrophils # 9.8 H Seg Neutrophils # Man Lymphocytes # (Manual) Monocytes # (Manual) Eosinophils # (Manual) Nucleated RBC % Basophils # (Manual) PT INR APTT Heparin Anti-Xa Level ABG pH POC ABG pO2 ABG pO2 ABG HCO3 ABG O2 Saturation ABG Base Excess POC ABG pCO2 ABG Hemoglobin ABG Oxyhemoglobin ABG Sodium ABG Chloride ABG Glucose Oxyhemoglobin Sodium Potassium Chloride 96.9 L Carbon Dioxide 37 H BUN 27 H Creatinine 0.7 L Glucose 140 H POC Glucose 145 H Lactic Acid Calcium Phosphorus Magnesium AST ALT Lactate Dehydrogenase Total Bilirubin Direct Bilirubin CK-MB (CK-2) C-Reactive Protein NT-Pro-B Natriuret Pep Total Protein Albumin Arterial Blood Glucose Urine WBC (Auto) Urine Creatinine 12/21/19 12/21/19 12/21/19 05:38 10:13 11:51 WBC RBC Hgb Hct MCHC RDW MCV MCH Lymph % (Auto) [place] % (Auto) [place] # Eos # Lymph # (Auto) [place] # (Auto) Eos # (Auto) Seg Neutrophils % Seg Neuts % (Manual) Baso # (Auto) Lymphocytes % (Manual) Monocytes % (Manual) Eosinophils % (Manual) Basophils % (Manual) Seg Neutrophils # Seg Neutrophils # Man Lymphocytes # (Manual) Monocytes # (Manual) Eosinophils # (Manual) Nucleated RBC % Basophils # (Manual) PT INR APTT 23.9 L Heparin Anti-Xa Level < 0.10 L ABG pH POC ABG pO2 ABG pO2 ABG HCO3 ABG O2 Saturation ABG Base Excess POC ABG pCO2 ABG Hemoglobin ABG Oxyhemoglobin ABG Sodium ABG Chloride ABG Glucose Oxyhemoglobin Sodium Potassium Chloride Carbon Dioxide BUN Creatinine Glucose POC Glucose 151 H 145 H Lactic Acid Calcium Phosphorus Magnesium AST ALT Lactate Dehydrogenase Total Bilirubin Direct Bilirubin CK-MB (CK-2) C-Reactive Protein NT-Pro-B Natriuret Pep Total Protein Albumin Arterial Blood Glucose Urine WBC (Auto) Urine Creatinine 12/21/19 12/22/19 12/22/19 17:16 00:01 01:33 WBC RBC Hgb Hct MCHC RDW MCV MCH Lymph % (Auto) [place] % (Auto) [place] # Eos # Lymph # (Auto) [place] # (Auto) Eos # (Auto) Seg Neutrophils % Seg Neuts % (Manual) Baso # (Auto) Lymphocytes % (Manual) Monocytes % (Manual) Eosinophils % (Manual) Basophils % (Manual) Seg Neutrophils # Seg Neutrophils # Man Lymphocytes # (Manual) Monocytes # (Manual) Eosinophils # (Manual) Nucleated RBC % Basophils # (Manual) PT INR APTT Heparin Anti-Xa Level 0.10 L ABG pH POC ABG pO2 ABG pO2 ABG HCO3 ABG O2 Saturation ABG Base Excess POC ABG pCO2 ABG Hemoglobin ABG Oxyhemoglobin ABG Sodium ABG Chloride ABG Glucose Oxyhemoglobin Sodium Potassium Chloride Carbon Dioxide BUN Creatinine Glucose POC Glucose 167 H 179 H Lactic Acid Calcium Phosphorus Magnesium AST ALT Lactate Dehydrogenase Total Bilirubin Direct Bilirubin CK-MB (CK-2) C-Reactive Protein NT-Pro-B Natriuret Pep Total Protein Albumin Arterial Blood Glucose Urine WBC (Auto) Urine Creatinine 12/22/19 12/22/19 12/22/19 03:22 05:10 05:10 WBC 13.8 H RBC 3.20 L Hgb 8.9 L Hct 28.1 L MCHC RDW 15.9 H MCV MCH Lymph % (Auto) [place] % (Auto) [place] # Eos # Lymph # (Auto) [place] # (Auto) Eos # (Auto) Seg Neutrophils % Seg Neuts % (Manual) Baso # (Auto) Lymphocytes % (Manual) Monocytes % (Manual) Eosinophils % (Manual) Basophils % (Manual) Seg Neutrophils # Seg Neutrophils # Man Lymphocytes # (Manual) Monocytes # (Manual) Eosinophils # (Manual) Nucleated RBC % Basophils # (Manual) PT INR APTT Heparin Anti-Xa Level ABG pH POC ABG pO2 52.3 L ABG pO2 ABG HCO3 ABG O2 Saturation ABG Base Excess POC ABG pCO2 52.9 H ABG Hemoglobin 10.7 L ABG Oxyhemoglobin 84 L ABG Sodium ABG Chloride ABG Glucose Oxyhemoglobin Sodium Potassium Chloride 96.6 L Carbon Dioxide BUN 25 H Creatinine 0.7 L Glucose 129 H POC Glucose Lactic Acid Calcium Phosphorus Magnesium AST ALT Lactate Dehydrogenase Total Bilirubin Direct Bilirubin CK-MB (CK-2) C-Reactive Protein NT-Pro-B Natriuret Pep Total Protein Albumin Arterial Blood Glucose Urine WBC (Auto) Urine Creatinine 12/22/19 12/22/19 12/22/19 05:18 12:32 12:43 WBC RBC Hgb Hct MCHC RDW MCV MCH Lymph % (Auto) [place] % (Auto) [place] # Eos # Lymph # (Auto) [place] # (Auto) Eos # (Auto) Seg Neutrophils % Seg Neuts % (Manual) Baso # (Auto) Lymphocytes % (Manual) Monocytes % (Manual) Eosinophils % (Manual) Basophils % (Manual) Seg Neutrophils # Seg Neutrophils # Man Lymphocytes # (Manual) Monocytes # (Manual) Eosinophils # (Manual) Nucleated RBC % Basophils # (Manual) PT INR APTT Heparin Anti-Xa Level 0.18 L ABG pH POC ABG pO2 ABG pO2 ABG HCO3 ABG O2 Saturation ABG Base Excess POC ABG pCO2 ABG Hemoglobin ABG Oxyhemoglobin ABG Sodium ABG Chloride ABG Glucose Oxyhemoglobin Sodium Potassium Chloride Carbon Dioxide BUN Creatinine Glucose POC Glucose 131 H 208 H Lactic Acid Calcium Phosphorus Magnesium AST ALT Lactate Dehydrogenase Total Bilirubin Direct Bilirubin CK-MB (CK-2) C-Reactive Protein NT-Pro-B Natriuret Pep Total Protein Albumin Arterial Blood Glucose Urine WBC (Auto) Urine Creatinine 12/22/19 12/22/19 12/23/19 17:44 23:20 03:51 WBC 15.2 H RBC 3.43 L Hgb 9.6 L Hct 30.3 L MCHC RDW 15.9 H MCV MCH Lymph % (Auto) [place] % (Auto) [place] # Eos # Lymph # (Auto) [place] # (Auto) Eos # (Auto) Seg Neutrophils % Seg Neuts % (Manual) Baso # (Auto) Lymphocytes % (Manual) Monocytes % (Manual) Eosinophils % (Manual) Basophils % (Manual) Seg Neutrophils # Seg Neutrophils # Man Lymphocytes # (Manual) Monocytes # (Manual) Eosinophils # (Manual) Nucleated RBC % Basophils # (Manual) PT INR APTT Heparin Anti-Xa Level ABG pH POC ABG pO2 ABG pO2 ABG HCO3 ABG O2 Saturation ABG Base Excess POC ABG pCO2 ABG Hemoglobin ABG Oxyhemoglobin ABG Sodium ABG Chloride ABG Glucose Oxyhemoglobin Sodium Potassium Chloride Carbon Dioxide BUN Creatinine Glucose POC Glucose 209 H 119 H Lactic Acid Calcium Phosphorus Magnesium AST ALT Lactate Dehydrogenase Total Bilirubin Direct Bilirubin CK-MB (CK-2) C-Reactive Protein NT-Pro-B Natriuret Pep Total Protein Albumin Arterial Blood Glucose Urine WBC (Auto) Urine Creatinine 12/23/19 12/23/19 12/23/19 03:51 05:31 12:09 WBC RBC Hgb Hct MCHC RDW MCV MCH Lymph % (Auto) [place] % (Auto) [place] # Eos # Lymph # (Auto) [place] # (Auto) Eos # (Auto) Seg Neutrophils % Seg Neuts % (Manual) Baso # (Auto) Lymphocytes % (Manual) Monocytes % (Manual) Eosinophils % (Manual) Basophils % (Manual) Seg Neutrophils # Seg Neutrophils # Man Lymphocytes # (Manual) Monocytes # (Manual) Eosinophils # (Manual) Nucleated RBC % Basophils # (Manual) PT INR APTT Heparin Anti-Xa Level ABG pH POC ABG pO2 ABG pO2 ABG HCO3 ABG O2 Saturation ABG Base Excess POC ABG pCO2 ABG Hemoglobin ABG Oxyhemoglobin ABG Sodium ABG Chloride ABG Glucose Oxyhemoglobin Sodium Potassium Chloride 97.2 L Carbon Dioxide 31 H BUN 23 H Creatinine 0.6 L Glucose 153 H POC Glucose 149 H 144 H Lactic Acid Calcium Phosphorus Magnesium AST ALT Lactate Dehydrogenase Total Bilirubin Direct Bilirubin CK-MB (CK-2) C-Reactive Protein NT-Pro-B Natriuret Pep Total Protein Albumin Arterial Blood Glucose Urine WBC (Auto) Urine Creatinine 12/23/19 12/23/19 12/23/19 15:30 17:49 23:31 WBC RBC Hgb Hct MCHC RDW MCV MCH Lymph % (Auto) [place] % (Auto) [place] # Eos # Lymph # (Auto) [place] # (Auto) Eos # (Auto) Seg Neutrophils % Seg Neuts % (Manual) Baso # (Auto) Lymphocytes % (Manual) Monocytes % (Manual) Eosinophils % (Manual) Basophils % (Manual) Seg Neutrophils # Seg Neutrophils # Man Lymphocytes # (Manual) Monocytes # (Manual) Eosinophils # (Manual) Nucleated RBC % Basophils # (Manual) PT INR APTT Heparin Anti-Xa Level 0.21 L ABG pH POC ABG pO2 ABG pO2 ABG HCO3 ABG O2 Saturation ABG Base Excess POC ABG pCO2 ABG Hemoglobin ABG Oxyhemoglobin ABG Sodium ABG Chloride ABG Glucose Oxyhemoglobin Sodium Potassium Chloride Carbon Dioxide BUN Creatinine Glucose POC Glucose 192 H 151 H Lactic Acid Calcium Phosphorus Magnesium AST ALT Lactate Dehydrogenase Total Bilirubin Direct Bilirubin CK-MB (CK-2) C-Reactive Protein NT-Pro-B Natriuret Pep Total Protein Albumin Arterial Blood Glucose Urine WBC (Auto) Urine Creatinine 12/24/19 12/24/19 12/24/19 05:34 12:13 16:50 WBC RBC Hgb Hct MCHC RDW MCV MCH Lymph % (Auto) [place] % (Auto) [place] # Eos # Lymph # (Auto) [place] # (Auto) Eos # (Auto) Seg Neutrophils % Seg Neuts % (Manual) Baso # (Auto) Lymphocytes % (Manual) Monocytes % (Manual) Eosinophils % (Manual) Basophils % (Manual) Seg Neutrophils # Seg Neutrophils # Man Lymphocytes # (Manual) Monocytes # (Manual) Eosinophils # (Manual) Nucleated RBC % Basophils # (Manual) PT INR APTT Heparin Anti-Xa Level 0.16 L ABG pH POC ABG pO2 ABG pO2 ABG HCO3 ABG O2 Saturation ABG Base Excess POC ABG pCO2 ABG Hemoglobin ABG Oxyhemoglobin ABG Sodium ABG Chloride ABG Glucose Oxyhemoglobin Sodium Potassium Chloride Carbon Dioxide BUN Creatinine Glucose POC Glucose 145 H 124 H Lactic Acid Calcium Phosphorus Magnesium AST ALT Lactate Dehydrogenase Total Bilirubin Direct Bilirubin CK-MB (CK-2) C-Reactive Protein NT-Pro-B Natriuret Pep Total Protein Albumin Arterial Blood Glucose Urine WBC (Auto) Urine Creatinine 12/24/19 12/25/19 12/25/19 17:53 00:14 04:18 WBC 12.9 H RBC 3.30 L Hgb 9.1 L Hct 28.8 L MCHC RDW 16.4 H MCV MCH Lymph % (Auto) [place] % (Auto) 7.8 H [place] # Eos # Lymph # (Auto) [place] # (Auto) 1.0 H Eos # (Auto) Seg Neutrophils % 75.5 H Seg Neuts % (Manual) Baso # (Auto) Lymphocytes % (Manual) Monocytes % (Manual) Eosinophils % (Manual) Basophils % (Manual) Seg Neutrophils # 9.7 H Seg Neutrophils # Man Lymphocytes # (Manual) Monocytes # (Manual) Eosinophils # (Manual) Nucleated RBC % Basophils # (Manual) PT INR APTT Heparin Anti-Xa Level ABG pH POC ABG pO2 ABG pO2 ABG HCO3 ABG O2 Saturation ABG Base Excess POC ABG pCO2 ABG Hemoglobin ABG Oxyhemoglobin ABG Sodium ABG Chloride ABG Glucose Oxyhemoglobin Sodium Potassium Chloride Carbon Dioxide BUN Creatinine Glucose POC Glucose 164 H 148 H Lactic Acid Calcium Phosphorus Magnesium AST ALT Lactate Dehydrogenase Total Bilirubin Direct Bilirubin CK-MB (CK-2) C-Reactive Protein NT-Pro-B Natriuret Pep Total Protein Albumin Arterial Blood Glucose Urine WBC (Auto) Urine Creatinine 12/25/19 12/25/19 12/25/19 04:18 05:38 11:44 WBC RBC Hgb Hct MCHC RDW MCV MCH Lymph % (Auto) [place] % (Auto) [place] # Eos # Lymph # (Auto) [place] # (Auto) Eos # (Auto) Seg Neutrophils % Seg Neuts % (Manual) Baso # (Auto) Lymphocytes % (Manual) Monocytes % (Manual) Eosinophils % (Manual) Basophils % (Manual) Seg Neutrophils # Seg Neutrophils # Man Lymphocytes # (Manual) Monocytes # (Manual) Eosinophils # (Manual) Nucleated RBC % Basophils # (Manual) PT INR APTT Heparin Anti-Xa Level ABG pH POC ABG pO2 ABG pO2 ABG HCO3 ABG O2 Saturation ABG Base Excess POC ABG pCO2 ABG Hemoglobin ABG Oxyhemoglobin ABG Sodium ABG Chloride ABG Glucose Oxyhemoglobin Sodium Potassium Chloride Carbon Dioxide 33 H BUN 27 H Creatinine 0.6 L Glucose 132 H POC Glucose 152 H 166 H Lactic Acid Calcium Phosphorus Magnesium AST ALT Lactate Dehydrogenase Total Bilirubin Direct Bilirubin CK-MB (CK-2) C-Reactive Protein NT-Pro-B Natriuret Pep Total Protein Albumin Arterial Blood Glucose Urine WBC (Auto) Urine Creatinine 12/25/19 12/26/19 12/26/19 18:29 00:17 00:18 WBC RBC Hgb Hct MCHC RDW MCV MCH Lymph % (Auto) [place] % (Auto) [place] # Eos # Lymph # (Auto) [place] # (Auto) Eos # (Auto) Seg Neutrophils % Seg Neuts % (Manual) Baso # (Auto) Lymphocytes % (Manual) Monocytes % (Manual) Eosinophils % (Manual) Basophils % (Manual) Seg Neutrophils # Seg Neutrophils # Man Lymphocytes # (Manual) Monocytes # (Manual) Eosinophils # (Manual) Nucleated RBC % Basophils # (Manual) PT INR APTT Heparin Anti-Xa Level ABG pH POC ABG pO2 ABG pO2 ABG HCO3 ABG O2 Saturation ABG Base Excess POC ABG pCO2 ABG Hemoglobin ABG Oxyhemoglobin ABG Sodium ABG Chloride ABG Glucose Oxyhemoglobin Sodium Potassium Chloride 97.8 L Carbon Dioxide BUN 25 H Creatinine 0.6 L Glucose 140 H POC Glucose 194 H 151 H Lactic Acid Calcium Phosphorus Magnesium AST ALT Lactate Dehydrogenase Total Bilirubin Direct Bilirubin CK-MB (CK-2) C-Reactive Protein NT-Pro-B Natriuret Pep Total Protein Albumin Arterial Blood Glucose Urine WBC (Auto) Urine Creatinine 12/26/19 12/26/19 12/26/19 05:36 11:41 17:50 WBC RBC Hgb Hct MCHC RDW MCV MCH Lymph % (Auto) [place] % (Auto) [place] # Eos # Lymph # (Auto) [place] # (Auto) Eos # (Auto) Seg Neutrophils % Seg Neuts % (Manual) Baso # (Auto) Lymphocytes % (Manual) Monocytes % (Manual) Eosinophils % (Manual) Basophils % (Manual) Seg Neutrophils # Seg Neutrophils # Man Lymphocytes # (Manual) Monocytes # (Manual) Eosinophils # (Manual) Nucleated RBC % Basophils # (Manual) PT INR APTT Heparin Anti-Xa Level ABG pH POC ABG pO2 ABG pO2 ABG HCO3 ABG O2 Saturation ABG Base Excess POC ABG pCO2 ABG Hemoglobin ABG Oxyhemoglobin ABG Sodium ABG Chloride ABG Glucose Oxyhemoglobin Sodium Potassium Chloride Carbon Dioxide BUN Creatinine Glucose POC Glucose 156 H 148 H 139 H Lactic Acid Calcium Phosphorus Magnesium AST ALT Lactate Dehydrogenase Total Bilirubin Direct Bilirubin CK-MB (CK-2) C-Reactive Protein NT-Pro-B Natriuret Pep Total Protein Albumin Arterial Blood Glucose Urine WBC (Auto) Urine Creatinine 12/26/19 12/27/19 12/27/19 23:19 05:34 12:02 WBC RBC Hgb Hct MCHC RDW MCV MCH Lymph % (Auto) [place] % (Auto) [place] # Eos # Lymph # (Auto) [place] # (Auto) Eos # (Auto) Seg Neutrophils % Seg Neuts % (Manual) Baso # (Auto) Lymphocytes % (Manual) Monocytes % (Manual) Eosinophils % (Manual) Basophils % (Manual) Seg Neutrophils # Seg Neutrophils # Man Lymphocytes # (Manual) Monocytes # (Manual) Eosinophils # (Manual) Nucleated RBC % Basophils # (Manual) PT INR APTT Heparin Anti-Xa Level ABG pH POC ABG pO2 ABG pO2 ABG HCO3 ABG O2 Saturation ABG Base Excess POC ABG pCO2 ABG Hemoglobin ABG Oxyhemoglobin ABG Sodium ABG Chloride ABG Glucose Oxyhemoglobin Sodium Potassium Chloride Carbon Dioxide BUN Creatinine Glucose POC Glucose 161 H 145 H 157 H Lactic Acid Calcium Phosphorus Magnesium AST ALT Lactate Dehydrogenase Total Bilirubin Direct Bilirubin CK-MB (CK-2) C-Reactive Protein NT-Pro-B Natriuret Pep Total Protein Albumin Arterial Blood Glucose Urine WBC (Auto) Urine Creatinine 12/27/19 12/27/19 12/27/19 17:35 20:11 23:00 WBC RBC Hgb Hct MCHC RDW MCV MCH Lymph % (Auto) [place] % (Auto) [place] # Eos # Lymph # (Auto) [place] # (Auto) Eos # (Auto) Seg Neutrophils % Seg Neuts % (Manual) Baso # (Auto) Lymphocytes % (Manual) Monocytes % (Manual) Eosinophils % (Manual) Basophils % (Manual) Seg Neutrophils # Seg Neutrophils # Man Lymphocytes # (Manual) Monocytes # (Manual) Eosinophils # (Manual) Nucleated RBC % Basophils # (Manual) PT INR APTT Heparin Anti-Xa Level 0.19 L ABG pH POC ABG pO2 ABG pO2 ABG HCO3 ABG O2 Saturation ABG Base Excess POC ABG pCO2 ABG Hemoglobin ABG Oxyhemoglobin ABG Sodium ABG Chloride ABG Glucose Oxyhemoglobin Sodium Potassium Chloride Carbon Dioxide BUN Creatinine Glucose POC Glucose 158 H 155 H Lactic Acid Calcium Phosphorus Magnesium AST ALT Lactate Dehydrogenase Total Bilirubin Direct Bilirubin CK-MB (CK-2) C-Reactive Protein NT-Pro-B Natriuret Pep Total Protein Albumin Arterial Blood Glucose Urine WBC (Auto) Urine Creatinine 12/27/19 12/28/19 12/28/19 23:45 02:41 02:41 WBC 13.0 H RBC 3.48 L Hgb 9.5 L Hct 30.6 L MCHC 31 L RDW 16.6 H MCV MCH 27 L Lymph % (Auto) 13.0 L [place] % (Auto) 8.0 H [place] # Eos # Lymph # (Auto) [place] # (Auto) 1.0 H Eos # (Auto) Seg Neutrophils % 76.3 H Seg Neuts % (Manual) Baso # (Auto) Lymphocytes % (Manual) Monocytes % (Manual) Eosinophils % (Manual) Basophils % (Manual) Seg Neutrophils # 9.9 H Seg Neutrophils # Man Lymphocytes # (Manual) Monocytes # (Manual) Eosinophils # (Manual) Nucleated RBC % Basophils # (Manual) PT INR APTT Heparin Anti-Xa Level ABG pH POC ABG pO2 ABG pO2 ABG HCO3 ABG O2 Saturation ABG Base Excess POC ABG pCO2 ABG Hemoglobin ABG Oxyhemoglobin ABG Sodium ABG Chloride ABG Glucose Oxyhemoglobin Sodium Potassium Chloride Carbon Dioxide BUN 22 H Creatinine 0.6 L Glucose 101 H POC Glucose 130 H Lactic Acid Calcium Phosphorus Magnesium AST ALT Lactate Dehydrogenase Total Bilirubin Direct Bilirubin CK-MB (CK-2) C-Reactive Protein NT-Pro-B Natriuret Pep Total Protein Albumin Arterial Blood Glucose Urine WBC (Auto) Urine Creatinine 12/28/19 12/28/19 12/28/19 06:00 12:34 18:13 WBC RBC Hgb Hct MCHC RDW MCV MCH Lymph % (Auto) [place] % (Auto) [place] # Eos # Lymph # (Auto) [place] # (Auto) Eos # (Auto) Seg Neutrophils % Seg Neuts % (Manual) Baso # (Auto) Lymphocytes % (Manual) Monocytes % (Manual) Eosinophils % (Manual) Basophils % (Manual) Seg Neutrophils # Seg Neutrophils # Man Lymphocytes # (Manual) Monocytes # (Manual) Eosinophils # (Manual) Nucleated RBC % Basophils # (Manual) PT INR APTT Heparin Anti-Xa Level ABG pH POC ABG pO2 ABG pO2 ABG HCO3 ABG O2 Saturation ABG Base Excess POC ABG pCO2 ABG Hemoglobin ABG Oxyhemoglobin ABG Sodium ABG Chloride ABG Glucose Oxyhemoglobin Sodium Potassium Chloride Carbon Dioxide BUN Creatinine Glucose POC Glucose 150 H 161 H 128 H Lactic Acid Calcium Phosphorus Magnesium AST ALT Lactate Dehydrogenase Total Bilirubin Direct Bilirubin CK-MB (CK-2) C-Reactive Protein NT-Pro-B Natriuret Pep Total Protein Albumin Arterial Blood Glucose Urine WBC (Auto) Urine Creatinine 12/28/19 12/29/19 12/29/19 23:36 05:21 11:40 WBC RBC Hgb Hct MCHC RDW MCV MCH Lymph % (Auto) [place] % (Auto) [place] # Eos # Lymph # (Auto) [place] # (Auto) Eos # (Auto) Seg Neutrophils % Seg Neuts % (Manual) Baso # (Auto) Lymphocytes % (Manual) Monocytes % (Manual) Eosinophils % (Manual) Basophils % (Manual) Seg Neutrophils # Seg Neutrophils # Man Lymphocytes # (Manual) Monocytes # (Manual) Eosinophils # (Manual) Nucleated RBC % Basophils # (Manual) PT INR APTT Heparin Anti-Xa Level ABG pH POC ABG pO2 ABG pO2 ABG HCO3 ABG O2 Saturation ABG Base Excess POC ABG pCO2 ABG Hemoglobin ABG Oxyhemoglobin ABG Sodium ABG Chloride ABG Glucose Oxyhemoglobin Sodium Potassium Chloride Carbon Dioxide BUN Creatinine Glucose POC Glucose 137 H 136 H 166 H Lactic Acid Calcium Phosphorus Magnesium AST ALT Lactate Dehydrogenase Total Bilirubin Direct Bilirubin CK-MB (CK-2) C-Reactive Protein NT-Pro-B Natriuret Pep Total Protein Albumin Arterial Blood Glucose Urine WBC (Auto) Urine Creatinine 12/29/19 12/29/19 12/29/19 17:23 19:21 23:38 WBC RBC Hgb Hct MCHC RDW MCV MCH Lymph % (Auto) [place] % (Auto) [place] # Eos # Lymph # (Auto) [place] # (Auto) Eos # (Auto) Seg Neutrophils % Seg Neuts % (Manual) Baso # (Auto) Lymphocytes % (Manual) Monocytes % (Manual) Eosinophils % (Manual) Basophils % (Manual) Seg Neutrophils # Seg Neutrophils # Man Lymphocytes # (Manual) Monocytes # (Manual) Eosinophils # (Manual) Nucleated RBC % Basophils # (Manual) PT INR APTT Heparin Anti-Xa Level 0.20 L ABG pH POC ABG pO2 ABG pO2 ABG HCO3 ABG O2 Saturation ABG Base Excess POC ABG pCO2 ABG Hemoglobin ABG Oxyhemoglobin ABG Sodium ABG Chloride ABG Glucose Oxyhemoglobin Sodium Potassium Chloride Carbon Dioxide BUN Creatinine Glucose POC Glucose 144 H 141 H Lactic Acid Calcium Phosphorus Magnesium AST ALT Lactate Dehydrogenase Total Bilirubin Direct Bilirubin CK-MB (CK-2) C-Reactive Protein NT-Pro-B Natriuret Pep Total Protein Albumin Arterial Blood Glucose Urine WBC (Auto) Urine Creatinine 12/30/19 12/30/19 12/30/19 03:58 03:58 04:59 WBC RBC 3.54 L Hgb 9.8 L Hct 30.7 L MCHC RDW 16.8 H MCV MCH Lymph % (Auto) [place] % (Auto) [place] # Eos # Lymph # (Auto) [place] # (Auto) Eos # (Auto) Seg Neutrophils % Seg Neuts % (Manual) Baso # (Auto) Lymphocytes % (Manual) Monocytes % (Manual) Eosinophils % (Manual) Basophils % (Manual) Seg Neutrophils # Seg Neutrophils # Man Lymphocytes # (Manual) Monocytes # (Manual) Eosinophils # (Manual) Nucleated RBC % Basophils # (Manual) PT INR APTT Heparin Anti-Xa Level ABG pH POC ABG pO2 ABG pO2 ABG HCO3 29.8 H ABG O2 Saturation ABG Base Excess 4.8 H POC ABG pCO2 ABG Hemoglobin 11.2 L ABG Oxyhemoglobin ABG Sodium ABG Chloride ABG Glucose Oxyhemoglobin 93.8 L Sodium Potassium Chloride 97.8 L Carbon Dioxide BUN 26 H Creatinine Glucose 168 H POC Glucose Lactic Acid Calcium Phosphorus Magnesium AST ALT Lactate Dehydrogenase Total Bilirubin Direct Bilirubin CK-MB (CK-2) C-Reactive Protein NT-Pro-B Natriuret Pep Total Protein Albumin Arterial Blood Glucose Urine WBC (Auto) Urine Creatinine 12/30/19 12/30/19 12/30/19 05:45 11:34 17:28 WBC RBC Hgb Hct MCHC RDW MCV MCH Lymph % (Auto) [place] % (Auto) [place] # Eos # Lymph # (Auto) [place] # (Auto) Eos # (Auto) Seg Neutrophils % Seg Neuts % (Manual) Baso # (Auto) Lymphocytes % (Manual) Monocytes % (Manual) Eosinophils % (Manual) Basophils % (Manual) Seg Neutrophils # Seg Neutrophils # Man Lymphocytes # (Manual) Monocytes # (Manual) Eosinophils # (Manual) Nucleated RBC % Basophils # (Manual) PT INR APTT Heparin Anti-Xa Level ABG pH POC ABG pO2 ABG pO2 ABG HCO3 ABG O2 Saturation ABG Base Excess POC ABG pCO2 ABG Hemoglobin ABG Oxyhemoglobin ABG Sodium ABG Chloride ABG Glucose Oxyhemoglobin Sodium Potassium Chloride Carbon Dioxide BUN Creatinine Glucose POC Glucose 163 H 180 H 150 H Lactic Acid Calcium Phosphorus Magnesium AST ALT Lactate Dehydrogenase Total Bilirubin Direct Bilirubin CK-MB (CK-2) C-Reactive Protein NT-Pro-B Natriuret Pep Total Protein Albumin Arterial Blood Glucose Urine WBC (Auto) Urine Creatinine 12/30/19 12/31/19 12/31/19 23:43 04:55 05:07 WBC RBC Hgb Hct MCHC RDW MCV MCH Lymph % (Auto) [place] % (Auto) [place] # Eos # Lymph # (Auto) [place] # (Auto) Eos # (Auto) Seg Neutrophils % Seg Neuts % (Manual) Baso # (Auto) Lymphocytes % (Manual) Monocytes % (Manual) Eosinophils % (Manual) Basophils % (Manual) Seg Neutrophils # Seg Neutrophils # Man Lymphocytes # (Manual) Monocytes # (Manual) Eosinophils # (Manual) Nucleated RBC % Basophils # (Manual) PT INR APTT Heparin Anti-Xa Level ABG pH POC ABG pO2 ABG pO2 ABG HCO3 ABG O2 Saturation ABG Base Excess POC ABG pCO2 ABG Hemoglobin ABG Oxyhemoglobin ABG Sodium ABG Chloride ABG Glucose Oxyhemoglobin Sodium Potassium 5.6 H D Chloride Carbon Dioxide BUN 33 H Creatinine Glucose 131 H POC Glucose 142 H 134 H Lactic Acid Calcium Phosphorus Magnesium AST ALT Lactate Dehydrogenase Total Bilirubin Direct Bilirubin CK-MB (CK-2) C-Reactive Protein NT-Pro-B Natriuret Pep Total Protein Albumin Arterial Blood Glucose Urine WBC (Auto) Urine Creatinine 12/31/19 12/31/19 12/31/19 11:30 17:19 17:36 WBC RBC Hgb Hct MCHC RDW MCV MCH Lymph % (Auto) [place] % (Auto) [place] # Eos # Lymph # (Auto) [place] # (Auto) Eos # (Auto) Seg Neutrophils % Seg Neuts % (Manual) Baso # (Auto) Lymphocytes % (Manual) Monocytes % (Manual) Eosinophils % (Manual) Basophils % (Manual) Seg Neutrophils # Seg Neutrophils # Man Lymphocytes # (Manual) Monocytes # (Manual) Eosinophils # (Manual) Nucleated RBC % Basophils # (Manual) PT INR APTT Heparin Anti-Xa Level ABG pH POC ABG pO2 ABG pO2 ABG HCO3 ABG O2 Saturation ABG Base Excess POC ABG pCO2 ABG Hemoglobin ABG Oxyhemoglobin ABG Sodium ABG Chloride ABG Glucose Oxyhemoglobin Sodium Potassium Chloride Carbon Dioxide BUN 35 H Creatinine Glucose 156 H POC Glucose 158 H 181 H Lactic Acid Calcium Phosphorus Magnesium AST ALT Lactate Dehydrogenase Total Bilirubin Direct Bilirubin CK-MB (CK-2) C-Reactive Protein NT-Pro-B Natriuret Pep Total Protein Albumin Arterial Blood Glucose Urine WBC (Auto) Urine Creatinine 12/31/19 12/31/19 12/31/19 18:16 19:41 21:53 WBC RBC Hgb Hct MCHC RDW MCV MCH Lymph % (Auto) [place] % (Auto) [place] # Eos # Lymph # (Auto) [place] # (Auto) Eos # (Auto) Seg Neutrophils % Seg Neuts % (Manual) Baso # (Auto) Lymphocytes % (Manual) Monocytes % (Manual) Eosinophils % (Manual) Basophils % (Manual) Seg Neutrophils # Seg Neutrophils # Man Lymphocytes # (Manual) Monocytes # (Manual) Eosinophils # (Manual) Nucleated RBC % Basophils # (Manual) PT INR APTT Heparin Anti-Xa Level 0.20 L ABG pH POC ABG pO2 ABG pO2 ABG HCO3 ABG O2 Saturation ABG Base Excess POC ABG pCO2 ABG Hemoglobin ABG Oxyhemoglobin ABG Sodium ABG Chloride ABG Glucose Oxyhemoglobin Sodium Potassium Chloride Carbon Dioxide BUN 34 H Creatinine Glucose 169 H POC Glucose 141 H Lactic Acid Calcium Phosphorus Magnesium AST ALT Lactate Dehydrogenase Total Bilirubin Direct Bilirubin CK-MB (CK-2) C-Reactive Protein NT-Pro-B Natriuret Pep Total Protein Albumin Arterial Blood Glucose Urine WBC (Auto) Urine Creatinine 12/31/19 01/01/20 01/01/20 23:51 05:17 10:40 WBC RBC Hgb Hct MCHC RDW MCV MCH Lymph % (Auto) [place] % (Auto) [place] # Eos # Lymph # (Auto) [place] # (Auto) Eos # (Auto) Seg Neutrophils % Seg Neuts % (Manual) Baso # (Auto) Lymphocytes % (Manual) Monocytes % (Manual) Eosinophils % (Manual) Basophils % (Manual) Seg Neutrophils # Seg Neutrophils # Man Lymphocytes # (Manual) Monocytes # (Manual) Eosinophils # (Manual) Nucleated RBC % Basophils # (Manual) PT INR APTT Heparin Anti-Xa Level ABG pH POC ABG pO2 ABG pO2 ABG HCO3 ABG O2 Saturation ABG Base Excess POC ABG pCO2 ABG Hemoglobin ABG Oxyhemoglobin ABG Sodium ABG Chloride ABG Glucose Oxyhemoglobin Sodium Potassium Chloride Carbon Dioxide BUN 31 H Creatinine 0.7 L Glucose 137 H POC Glucose 131 H 155 H Lactic Acid Calcium Phosphorus Magnesium AST 73 H ALT 97 H Lactate Dehydrogenase Total Bilirubin Direct Bilirubin CK-MB (CK-2) C-Reactive Protein NT-Pro-B Natriuret Pep 3866 H Total Protein Albumin 2.8 L Arterial Blood Glucose Urine WBC (Auto) Urine Creatinine 01/01/20 01/01/20 01/01/20 12:26 15:33 17:53 WBC 14.3 H RBC 3.35 L Hgb 9.1 L Hct 28.8 L MCHC RDW 17.0 H MCV MCH 27 L Lymph % (Auto) 7.0 L [place] % (Auto) 7.6 H [place] # Eos # Lymph # (Auto) 1.0 L [place] # (Auto) 1.1 H Eos # (Auto) Seg Neutrophils % 83.3 H Seg Neuts % (Manual) Baso # (Auto) Lymphocytes % (Manual) Monocytes % (Manual) Eosinophils % (Manual) Basophils % (Manual) Seg Neutrophils # 12.0 H Seg Neutrophils # Man Lymphocytes # (Manual) Monocytes # (Manual) Eosinophils # (Manual) Nucleated RBC % Basophils # (Manual) PT INR APTT Heparin Anti-Xa Level ABG pH POC ABG pO2 ABG pO2 ABG HCO3 ABG O2 Saturation ABG Base Excess POC ABG pCO2 ABG Hemoglobin ABG Oxyhemoglobin ABG Sodium ABG Chloride ABG Glucose Oxyhemoglobin Sodium Potassium Chloride Carbon Dioxide BUN Creatinine Glucose POC Glucose 128 H 128 H Lactic Acid Calcium Phosphorus Magnesium AST ALT Lactate Dehydrogenase Total Bilirubin Direct Bilirubin CK-MB (CK-2) C-Reactive Protein NT-Pro-B Natriuret Pep Total Protein Albumin Arterial Blood Glucose Urine WBC (Auto) Urine Creatinine 01/01/20 01/02/20 01/02/20 23:04 05:39 07:00 WBC RBC Hgb Hct MCHC RDW MCV MCH Lymph % (Auto) [place] % (Auto) [place] # Eos # Lymph # (Auto) [place] # (Auto) Eos # (Auto) Seg Neutrophils % Seg Neuts % (Manual) Baso # (Auto) Lymphocytes % (Manual) Monocytes % (Manual) Eosinophils % (Manual) Basophils % (Manual) Seg Neutrophils # Seg Neutrophils # Man Lymphocytes # (Manual) Monocytes # (Manual) Eosinophils # (Manual) Nucleated RBC % Basophils # (Manual) PT INR APTT Heparin Anti-Xa Level 0.13 L ABG pH POC ABG pO2 ABG pO2 ABG HCO3 ABG O2 Saturation ABG Base Excess POC ABG pCO2 ABG Hemoglobin ABG Oxyhemoglobin ABG Sodium ABG Chloride ABG Glucose Oxyhemoglobin Sodium Potassium Chloride Carbon Dioxide BUN Creatinine Glucose POC Glucose 120 H 169 H Lactic Acid Calcium Phosphorus Magnesium AST ALT Lactate Dehydrogenase Total Bilirubin Direct Bilirubin CK-MB (CK-2) C-Reactive Protein NT-Pro-B Natriuret Pep Total Protein Albumin Arterial Blood Glucose Urine WBC (Auto) Urine Creatinine 01/02/20 01/02/20 01/02/20 12:15 14:06 17:58 WBC RBC Hgb Hct MCHC RDW MCV MCH Lymph % (Auto) [place] % (Auto) [place] # Eos # Lymph # (Auto) [place] # (Auto) Eos # (Auto) Seg Neutrophils % Seg Neuts % (Manual) Baso # (Auto) Lymphocytes % (Manual) Monocytes % (Manual) Eosinophils % (Manual) Basophils % (Manual) Seg Neutrophils # Seg Neutrophils # Man Lymphocytes # (Manual) Monocytes # (Manual) Eosinophils # (Manual) Nucleated RBC % Basophils # (Manual) PT INR APTT Heparin Anti-Xa Level < 0.10 L ABG pH POC ABG pO2 ABG pO2 ABG HCO3 ABG O2 Saturation ABG Base Excess POC ABG pCO2 ABG Hemoglobin ABG Oxyhemoglobin ABG Sodium ABG Chloride ABG Glucose Oxyhemoglobin Sodium Potassium Chloride Carbon Dioxide BUN Creatinine Glucose POC Glucose 190 H 198 H Lactic Acid Calcium Phosphorus Magnesium AST ALT Lactate Dehydrogenase Total Bilirubin Direct Bilirubin CK-MB (CK-2) C-Reactive Protein NT-Pro-B Natriuret Pep Total Protein Albumin Arterial Blood Glucose Urine WBC (Auto) Urine Creatinine 01/02/20 01/02/20 01/03/20 21:43 23:33 05:42 WBC RBC Hgb Hct MCHC RDW MCV MCH Lymph % (Auto) [place] % (Auto) [place] # Eos # Lymph # (Auto) [place] # (Auto) Eos # (Auto) Seg Neutrophils % Seg Neuts % (Manual) Baso # (Auto) Lymphocytes % (Manual) Monocytes % (Manual) Eosinophils % (Manual) Basophils % (Manual) Seg Neutrophils # Seg Neutrophils # Man Lymphocytes # (Manual) Monocytes # (Manual) Eosinophils # (Manual) Nucleated RBC % Basophils # (Manual) PT INR APTT Heparin Anti-Xa Level 0.10 L ABG pH POC ABG pO2 ABG pO2 ABG HCO3 ABG O2 Saturation ABG Base Excess POC ABG pCO2 ABG Hemoglobin ABG Oxyhemoglobin ABG Sodium ABG Chloride ABG Glucose Oxyhemoglobin Sodium Potassium Chloride Carbon Dioxide BUN Creatinine Glucose POC Glucose 180 H 163 H Lactic Acid Calcium Phosphorus Magnesium AST ALT Lactate Dehydrogenase Total Bilirubin Direct Bilirubin CK-MB (CK-2) C-Reactive Protein NT-Pro-B Natriuret Pep Total Protein Albumin Arterial Blood Glucose Urine WBC (Auto) Urine Creatinine 01/03/20 01/03/20 01/03/20 06:50 07:25 07:45 WBC 12.1 H RBC 3.35 L Hgb 9.0 L Hct 28.9 L MCHC 31 L RDW 16.6 H MCV MCH 27 L Lymph % (Auto) 13.0 L [place] % (Auto) 8.6 H [place] # Eos # Lymph # (Auto) [place] # (Auto) 1.0 H Eos # (Auto) Seg Neutrophils % 75.9 H Seg Neuts % (Manual) Baso # (Auto) Lymphocytes % (Manual) Monocytes % (Manual) Eosinophils % (Manual) Basophils % (Manual) Seg Neutrophils # 9.2 H Seg Neutrophils # Man Lymphocytes # (Manual) Monocytes # (Manual) Eosinophils # (Manual) Nucleated RBC % Basophils # (Manual) PT INR APTT Heparin Anti-Xa Level 0.29 L ABG pH POC ABG pO2 ABG pO2 ABG HCO3 ABG O2 Saturation ABG Base Excess POC ABG pCO2 ABG Hemoglobin ABG Oxyhemoglobin ABG Sodium ABG Chloride ABG Glucose Oxyhemoglobin Sodium Potassium 3.3 L D Chloride Carbon Dioxide 35 H D BUN 23 H Creatinine 0.6 L Glucose 149 H POC Glucose Lactic Acid Calcium Phosphorus Magnesium AST ALT 88 H Lactate Dehydrogenase Total Bilirubin Direct Bilirubin CK-MB (CK-2) C-Reactive Protein NT-Pro-B Natriuret Pep Total Protein 6.2 L Albumin 2.9 L Arterial Blood Glucose Urine WBC (Auto) Urine Creatinine 01/03/20 01/03/20 01/03/20 12:05 17:42 18:30 WBC RBC Hgb Hct MCHC RDW MCV MCH Lymph % (Auto) [place] % (Auto) [place] # Eos # Lymph # (Auto) [place] # (Auto) Eos # (Auto) Seg Neutrophils % Seg Neuts % (Manual) Baso # (Auto) Lymphocytes % (Manual) Monocytes % (Manual) Eosinophils % (Manual) Basophils % (Manual) Seg Neutrophils # Seg Neutrophils # Man Lymphocytes # (Manual) Monocytes # (Manual) Eosinophils # (Manual) Nucleated RBC % Basophils # (Manual) PT INR APTT Heparin Anti-Xa Level ABG pH POC ABG pO2 ABG pO2 70.7 L ABG HCO3 36.1 H ABG O2 Saturation 94.4 L ABG Base Excess 10.0 H POC ABG pCO2 ABG Hemoglobin 9.7 L ABG Oxyhemoglobin ABG Sodium ABG Chloride ABG Glucose Oxyhemoglobin 91.8 L Sodium Potassium Chloride Carbon Dioxide BUN Creatinine Glucose POC Glucose 128 H 132 H Lactic Acid Calcium Phosphorus Magnesium AST ALT Lactate Dehydrogenase Total Bilirubin Direct Bilirubin CK-MB (CK-2) C-Reactive Protein NT-Pro-B Natriuret Pep Total Protein Albumin Arterial Blood Glucose Urine WBC (Auto) Urine Creatinine 01/04/20 01/04/20 01/04/20 00:10 04:26 05:23 WBC RBC Hgb Hct MCHC RDW MCV MCH Lymph % (Auto) [place] % (Auto) [place] # Eos # Lymph # (Auto) [place] # (Auto) Eos # (Auto) Seg Neutrophils % Seg Neuts % (Manual) Baso # (Auto) Lymphocytes % (Manual) Monocytes % (Manual) Eosinophils % (Manual) Basophils % (Manual) Seg Neutrophils # Seg Neutrophils # Man Lymphocytes # (Manual) Monocytes # (Manual) Eosinophils # (Manual) Nucleated RBC % Basophils # (Manual) PT INR APTT Heparin Anti-Xa Level 0.16 L ABG pH POC ABG pO2 ABG pO2 ABG HCO3 ABG O2 Saturation ABG Base Excess POC ABG pCO2 ABG Hemoglobin ABG Oxyhemoglobin ABG Sodium ABG Chloride ABG Glucose Oxyhemoglobin Sodium Potassium Chloride Carbon Dioxide BUN Creatinine Glucose POC Glucose 121 H 119 H Lactic Acid Calcium Phosphorus Magnesium AST ALT Lactate Dehydrogenase Total Bilirubin Direct Bilirubin CK-MB (CK-2) C-Reactive Protein NT-Pro-B Natriuret Pep Total Protein Albumin Arterial Blood Glucose Urine WBC (Auto) Urine Creatinine 10/12/20 10/12/20 10/12/20 09:50 09:50 12:18 WBC 15.4 H RBC 3.30 L Hgb 8.7 L Hct 28.2 L MCHC 31 L RDW 17.0 H MCV MCH 26 L Lymph % (Auto) [place] % (Auto) 7.6 H [place] # Eos # Lymph # (Auto) [place] # (Auto) 1.2 H Eos # (Auto) Seg Neutrophils % 75.4 H Seg Neuts % (Manual) Baso # (Auto) Lymphocytes % (Manual) Monocytes % (Manual) Eosinophils % (Manual) Basophils % (Manual) Seg Neutrophils # 11.6 H Seg Neutrophils # Man Lymphocytes # (Manual) Monocytes # (Manual) Eosinophils # (Manual) Nucleated RBC % Basophils # (Manual) PT INR APTT Heparin Anti-Xa Level ABG pH POC ABG pO2 ABG pO2 ABG HCO3 ABG O2 Saturation ABG Base Excess POC ABG pCO2 ABG Hemoglobin ABG Oxyhemoglobin ABG Sodium ABG Chloride ABG Glucose Oxyhemoglobin Sodium 148 H Potassium 3.5 L Chloride Carbon Dioxide 32 H BUN Creatinine 0.6 L Glucose 114 H POC Glucose 111 H Lactic Acid Calcium Phosphorus Magnesium AST ALT 59 H Lactate Dehydrogenase Total Bilirubin Direct Bilirubin CK-MB (CK-2) C-Reactive Protein NT-Pro-B Natriuret Pep Total Protein Albumin 2.6 L Arterial Blood Glucose Urine WBC (Auto) Urine Creatinine 01/05/20 01/05/20 01/05/20 04:05 04:05 05:19 WBC 11.7 H RBC 3.50 L Hgb 9.3 L Hct 29.9 L MCHC 31 L RDW 16.6 H MCV MCH 27 L Lymph % (Auto) 13.1 L [place] % (Auto) 9.7 H [place] # Eos # Lymph # (Auto) [place] # (Auto) 1.1 H Eos # (Auto) Seg Neutrophils % 74.0 H Seg Neuts % (Manual) Baso # (Auto) Lymphocytes % (Manual) Monocytes % (Manual) Eosinophils % (Manual) Basophils % (Manual) Seg Neutrophils # 8.6 H Seg Neutrophils # Man Lymphocytes # (Manual) Monocytes # (Manual) Eosinophils # (Manual) Nucleated RBC % Basophils # (Manual) PT INR APTT Heparin Anti-Xa Level ABG pH POC ABG pO2 ABG pO2 ABG HCO3 ABG O2 Saturation ABG Base Excess POC ABG pCO2 ABG Hemoglobin ABG Oxyhemoglobin ABG Sodium ABG Chloride ABG Glucose Oxyhemoglobin Sodium 151 H Potassium Chloride Carbon Dioxide 34 H BUN Creatinine 0.7 L Glucose POC Glucose 112 H Lactic Acid Calcium Phosphorus Magnesium AST ALT 59 H Lactate Dehydrogenase Total Bilirubin Direct Bilirubin CK-MB (CK-2) C-Reactive Protein NT-Pro-B Natriuret Pep Total Protein 5.8 L Albumin 2.6 L Arterial Blood Glucose Urine WBC (Auto) Urine Creatinine 01/05/20 01/06/20 01/06/20 16:04 00:23 04:44 WBC RBC 3.36 L Hgb 8.9 L Hct 28.7 L MCHC 31 L RDW 16.9 H MCV MCH 26 L Lymph % (Auto) [place] % (Auto) 9.4 H [place] # Eos # Lymph # (Auto) [place] # (Auto) Eos # (Auto) Seg Neutrophils % Seg Neuts % (Manual) Baso # (Auto) Lymphocytes % (Manual) Monocytes % (Manual) Eosinophils % (Manual) Basophils % (Manual) Seg Neutrophils # Seg Neutrophils # Man Lymphocytes # (Manual) Monocytes # (Manual) Eosinophils # (Manual) Nucleated RBC % Basophils # (Manual) PT INR APTT Heparin Anti-Xa Level ABG pH POC ABG pO2 ABG pO2 ABG HCO3 ABG O2 Saturation ABG Base Excess POC ABG pCO2 ABG Hemoglobin ABG Oxyhemoglobin ABG Sodium ABG Chloride ABG Glucose Oxyhemoglobin Sodium 151 H Potassium 3.2 L Chloride Carbon Dioxide 34 H BUN Creatinine 0.6 L Glucose POC Glucose 107 H Lactic Acid Calcium Phosphorus Magnesium AST ALT Lactate Dehydrogenase Total Bilirubin Direct Bilirubin CK-MB (CK-2) C-Reactive Protein NT-Pro-B Natriuret Pep Total Protein Albumin Arterial Blood Glucose Urine WBC (Auto) Urine Creatinine 01/06/20 01/06/20 01/06/20 04:44 05:33 12:04 WBC RBC Hgb Hct MCHC RDW MCV MCH Lymph % (Auto) [place] % (Auto) [place] # Eos # Lymph # (Auto) [place] # (Auto) Eos # (Auto) Seg Neutrophils % Seg Neuts % (Manual) Baso # (Auto) Lymphocytes % (Manual) Monocytes % (Manual) Eosinophils % (Manual) Basophils % (Manual) Seg Neutrophils # Seg Neutrophils # Man Lymphocytes # (Manual) Monocytes # (Manual) Eosinophils # (Manual) Nucleated RBC % Basophils # (Manual) PT INR APTT Heparin Anti-Xa Level ABG pH POC ABG pO2 ABG pO2 ABG HCO3 ABG O2 Saturation ABG Base Excess POC ABG pCO2 ABG Hemoglobin ABG Oxyhemoglobin ABG Sodium ABG Chloride ABG Glucose Oxyhemoglobin Sodium 151 H Potassium 3.4 L Chloride Carbon Dioxide 33 H BUN Creatinine 0.6 L Glucose 118 H POC Glucose 118 H 123 H Lactic Acid Calcium Phosphorus Magnesium AST ALT Lactate Dehydrogenase Total Bilirubin Direct Bilirubin CK-MB (CK-2) C-Reactive Protein NT-Pro-B Natriuret Pep Total Protein 6.2 L Albumin 2.6 L Arterial Blood Glucose Urine WBC (Auto) Urine Creatinine 01/06/20 01/07/20 01/07/20 17:54 00:06 04:10 WBC RBC 3.42 L Hgb 8.9 L Hct 29.0 L MCHC 31 L RDW 17.1 H MCV MCH 26 L Lymph % (Auto) [place] % (Auto) 8.4 H [place] # Eos # Lymph # (Auto) [place] # (Auto) Eos # (Auto) Seg Neutrophils % Seg Neuts % (Manual) Baso # (Auto) Lymphocytes % (Manual) Monocytes % (Manual) Eosinophils % (Manual) Basophils % (Manual) Seg Neutrophils # Seg Neutrophils # Man Lymphocytes # (Manual) Monocytes # (Manual) Eosinophils # (Manual) Nucleated RBC % Basophils # (Manual) PT INR APTT Heparin Anti-Xa Level ABG pH POC ABG pO2 ABG pO2 ABG HCO3 ABG O2 Saturation ABG Base Excess POC ABG pCO2 ABG Hemoglobin ABG Oxyhemoglobin ABG Sodium ABG Chloride ABG Glucose Oxyhemoglobin Sodium Potassium Chloride Carbon Dioxide BUN Creatinine Glucose POC Glucose 112 H 126 H Lactic Acid Calcium Phosphorus Magnesium AST ALT Lactate Dehydrogenase Total Bilirubin Direct Bilirubin CK-MB (CK-2) C-Reactive Protein NT-Pro-B Natriuret Pep Total Protein Albumin Arterial Blood Glucose Urine WBC (Auto) Urine Creatinine 01/07/20 01/07/20 01/07/20 04:10 05:59 12:27 WBC RBC Hgb Hct MCHC RDW MCV MCH Lymph % (Auto) [place] % (Auto) [place] # Eos # Lymph # (Auto) [place] # (Auto) Eos # (Auto) Seg Neutrophils % Seg Neuts % (Manual) Baso # (Auto) Lymphocytes % (Manual) Monocytes % (Manual) Eosinophils % (Manual) Basophils % (Manual) Seg Neutrophils # Seg Neutrophils # Man Lymphocytes # (Manual) Monocytes # (Manual) Eosinophils # (Manual) Nucleated RBC % Basophils # (Manual) PT INR APTT Heparin Anti-Xa Level ABG pH POC ABG pO2 ABG pO2 ABG HCO3 ABG O2 Saturation ABG Base Excess POC ABG pCO2 ABG Hemoglobin ABG Oxyhemoglobin ABG Sodium ABG Chloride ABG Glucose Oxyhemoglobin Sodium 153 H Potassium 3.5 L Chloride Carbon Dioxide 34 H BUN Creatinine 0.6 L Glucose 121 H POC Glucose 121 H 126 H Lactic Acid Calcium Phosphorus Magnesium AST ALT Lactate Dehydrogenase Total Bilirubin Direct Bilirubin CK-MB (CK-2) C-Reactive Protein NT-Pro-B Natriuret Pep Total Protein 5.9 L Albumin 2.4 L Arterial Blood Glucose Urine WBC (Auto) Urine Creatinine 01/07/20 01/08/20 01/08/20 18:12 00:03 05:41 WBC RBC Hgb Hct MCHC RDW MCV MCH Lymph % (Auto) [place] % (Auto) [place] # Eos # Lymph # (Auto) [place] # (Auto) Eos # (Auto) Seg Neutrophils % Seg Neuts % (Manual) Baso # (Auto) Lymphocytes % (Manual) Monocytes % (Manual) Eosinophils % (Manual) Basophils % (Manual) Seg Neutrophils # Seg Neutrophils # Man Lymphocytes # (Manual) Monocytes # (Manual) Eosinophils # (Manual) Nucleated RBC % Basophils # (Manual) PT INR APTT Heparin Anti-Xa Level ABG pH POC ABG pO2 ABG pO2 ABG HCO3 ABG O2 Saturation ABG Base Excess POC ABG pCO2 ABG Hemoglobin ABG Oxyhemoglobin ABG Sodium ABG Chloride ABG Glucose Oxyhemoglobin Sodium Potassium Chloride Carbon Dioxide BUN Creatinine Glucose POC Glucose 124 H 130 H 138 H Lactic Acid Calcium Phosphorus Magnesium AST ALT Lactate Dehydrogenase Total Bilirubin Direct Bilirubin CK-MB (CK-2) C-Reactive Protein NT-Pro-B Natriuret Pep Total Protein Albumin Arterial Blood Glucose Urine WBC (Auto) Urine Creatinine 01/08/20 01/08/20 01/08/20 09:28 11:42 18:21 WBC RBC Hgb Hct MCHC RDW MCV MCH Lymph % (Auto) [place] % (Auto) [place] # Eos # Lymph # (Auto) [place] # (Auto) Eos # (Auto) Seg Neutrophils % Seg Neuts % (Manual) Baso # (Auto) Lymphocytes % (Manual) Monocytes % (Manual) Eosinophils % (Manual) Basophils % (Manual) Seg Neutrophils # Seg Neutrophils # Man Lymphocytes # (Manual) Monocytes # (Manual) Eosinophils # (Manual) Nucleated RBC % Basophils # (Manual) PT INR APTT Heparin Anti-Xa Level ABG pH POC ABG pO2 ABG pO2 ABG HCO3 ABG O2 Saturation ABG Base Excess POC ABG pCO2 ABG Hemoglobin ABG Oxyhemoglobin ABG Sodium ABG Chloride ABG Glucose Oxyhemoglobin Sodium Potassium Chloride Carbon Dioxide BUN Creatinine Glucose POC Glucose 181 H 150 H 129 H Lactic Acid Calcium Phosphorus Magnesium AST ALT Lactate Dehydrogenase Total Bilirubin Direct Bilirubin CK-MB (CK-2) C-Reactive Protein NT-Pro-B Natriuret Pep Total Protein Albumin Arterial Blood Glucose Urine WBC (Auto) Urine Creatinine 01/08/20 01/08/20 01/09/20 19:25 23:55 04:11 WBC RBC 3.43 L Hgb 8.9 L Hct 28.7 L MCHC 31 L RDW 17.6 H MCV MCH 26 L Lymph % (Auto) [place] % (Auto) 8.6 H [place] # Eos # Lymph # (Auto) [place] # (Auto) Eos # (Auto) Seg Neutrophils % Seg Neuts % (Manual) Baso # (Auto) Lymphocytes % (Manual) Monocytes % (Manual) Eosinophils % (Manual) Basophils % (Manual) Seg Neutrophils # Seg Neutrophils # Man Lymphocytes # (Manual) Monocytes # (Manual) Eosinophils # (Manual) Nucleated RBC % Basophils # (Manual) PT INR APTT Heparin Anti-Xa Level ABG pH POC ABG pO2 ABG pO2 ABG HCO3 ABG O2 Saturation ABG Base Excess POC ABG pCO2 ABG Hemoglobin ABG Oxyhemoglobin ABG Sodium ABG Chloride ABG Glucose Oxyhemoglobin Sodium Potassium Chloride Carbon Dioxide BUN Creatinine 0.7 L Glucose 117 H POC Glucose 132 H Lactic Acid Calcium Phosphorus Magnesium AST ALT Lactate Dehydrogenase Total Bilirubin Direct Bilirubin CK-MB (CK-2) C-Reactive Protein NT-Pro-B Natriuret Pep Total Protein Albumin Arterial Blood Glucose Urine WBC (Auto) Urine Creatinine 01/09/20 01/09/20 01/09/20 04:11 05:38 22:58 WBC RBC Hgb Hct MCHC RDW MCV MCH Lymph % (Auto) [place] % (Auto) [place] # Eos # Lymph # (Auto) [place] # (Auto) Eos # (Auto) Seg Neutrophils % Seg Neuts % (Manual) Baso # (Auto) Lymphocytes % (Manual) Monocytes % (Manual) Eosinophils % (Manual) Basophils % (Manual) Seg Neutrophils # Seg Neutrophils # Man Lymphocytes # (Manual) Monocytes # (Manual) Eosinophils # (Manual) Nucleated RBC % Basophils # (Manual) PT INR APTT Heparin Anti-Xa Level ABG pH POC ABG pO2 ABG pO2 ABG HCO3 ABG O2 Saturation ABG Base Excess POC ABG pCO2 ABG Hemoglobin ABG Oxyhemoglobin ABG Sodium ABG Chloride ABG Glucose Oxyhemoglobin Sodium 147 H Potassium 3.3 L D Chloride Carbon Dioxide 32 H BUN Creatinine 0.6 L Glucose 106 H POC Glucose 107 H 113 H Lactic Acid Calcium Phosphorus Magnesium AST ALT Lactate Dehydrogenase Total Bilirubin Direct Bilirubin CK-MB (CK-2) C-Reactive Protein NT-Pro-B Natriuret Pep Total Protein Albumin Arterial Blood Glucose Urine WBC (Auto) Urine Creatinine 01/10/20 01/10/20 01/10/20 04:05 11:36 17:54 WBC RBC Hgb Hct MCHC RDW MCV MCH Lymph % (Auto) [place] % (Auto) [place] # Eos # Lymph # (Auto) [place] # (Auto) Eos # (Auto) Seg Neutrophils % Seg Neuts % (Manual) Baso # (Auto) Lymphocytes % (Manual) Monocytes % (Manual) Eosinophils % (Manual) Basophils % (Manual) Seg Neutrophils # Seg Neutrophils # Man Lymphocytes # (Manual) Monocytes # (Manual) Eosinophils # (Manual) Nucleated RBC % Basophils # (Manual) PT INR APTT Heparin Anti-Xa Level ABG pH POC ABG pO2 ABG pO2 ABG HCO3 ABG O2 Saturation ABG Base Excess POC ABG pCO2 ABG Hemoglobin ABG Oxyhemoglobin ABG Sodium ABG Chloride ABG Glucose Oxyhemoglobin Sodium Potassium Chloride Carbon Dioxide BUN Creatinine 0.7 L Glucose 110 H POC Glucose 129 H 117 H Lactic Acid Calcium Phosphorus Magnesium AST ALT Lactate Dehydrogenase Total Bilirubin Direct Bilirubin CK-MB (CK-2) C-Reactive Protein NT-Pro-B Natriuret Pep Total Protein Albumin Arterial Blood Glucose Urine WBC (Auto) Urine Creatinine 01/10/20 01/11/20 01/11/20 23:52 03:19 12:09 WBC RBC Hgb Hct MCHC RDW MCV MCH Lymph % (Auto) [place] % (Auto) [place] # Eos # Lymph # (Auto) [place] # (Auto) Eos # (Auto) Seg Neutrophils % Seg Neuts % (Manual) Baso # (Auto) Lymphocytes % (Manual) Monocytes % (Manual) Eosinophils % (Manual) Basophils % (Manual) Seg Neutrophils # Seg Neutrophils # Man Lymphocytes # (Manual) Monocytes # (Manual) Eosinophils # (Manual) Nucleated RBC % Basophils # (Manual) PT INR APTT Heparin Anti-Xa Level ABG pH POC ABG pO2 ABG pO2 ABG HCO3 ABG O2 Saturation ABG Base Excess POC ABG pCO2 ABG Hemoglobin ABG Oxyhemoglobin ABG Sodium ABG Chloride ABG Glucose Oxyhemoglobin Sodium Potassium Chloride Carbon Dioxide BUN Creatinine Glucose POC Glucose 117 H 136 H 115 H Lactic Acid Calcium Phosphorus Magnesium AST ALT Lactate Dehydrogenase Total Bilirubin Direct Bilirubin CK-MB (CK-2) C-Reactive Protein NT-Pro-B Natriuret Pep Total Protein Albumin Arterial Blood Glucose Urine WBC (Auto) Urine Creatinine 01/11/20 01/11/20 01/12/20 18:27 23:28 00:23 WBC RBC Hgb 9.8 L Hct 31.6 L MCHC 31 L RDW 17.8 H MCV 83 L MCH 26 L Lymph % (Auto) [place] % (Auto) 8.0 H [place] # Eos # Lymph # (Auto) [place] # (Auto) Eos # (Auto) Seg Neutrophils % Seg Neuts % (Manual) Baso # (Auto) Lymphocytes % (Manual) Monocytes % (Manual) Eosinophils % (Manual) Basophils % (Manual) Seg Neutrophils # Seg Neutrophils # Man Lymphocytes # (Manual) Monocytes # (Manual) Eosinophils # (Manual) Nucleated RBC % Basophils # (Manual) PT INR APTT Heparin Anti-Xa Level ABG pH POC ABG pO2 ABG pO2 ABG HCO3 ABG O2 Saturation ABG Base Excess POC ABG pCO2 ABG Hemoglobin ABG Oxyhemoglobin ABG Sodium ABG Chloride ABG Glucose Oxyhemoglobin Sodium Potassium Chloride Carbon Dioxide BUN Creatinine Glucose POC Glucose 118 H 122 H Lactic Acid Calcium Phosphorus Magnesium AST ALT Lactate Dehydrogenase Total Bilirubin Direct Bilirubin CK-MB (CK-2) C-Reactive Protein NT-Pro-B Natriuret Pep Total Protein Albumin Arterial Blood Glucose Urine WBC (Auto) Urine Creatinine 01/12/20 01/12/20 01/12/20 00:23 04:18 04:18 WBC RBC Hgb 9.6 L Hct 30.9 L MCHC 31 L RDW 17.3 H MCV 81 L MCH 25 L Lymph % (Auto) [place] % (Auto) [place] # Eos # Lymph # (Auto) [place] # (Auto) Eos # (Auto) Seg Neutrophils % Seg Neuts % (Manual) Baso # (Auto) Lymphocytes % (Manual) Monocytes % (Manual) Eosinophils % (Manual) Basophils % (Manual) Seg Neutrophils # Seg Neutrophils # Man Lymphocytes # (Manual) Monocytes # (Manual) Eosinophils # (Manual) Nucleated RBC % Basophils # (Manual) PT INR APTT Heparin Anti-Xa Level ABG pH POC ABG pO2 ABG pO2 ABG HCO3 ABG O2 Saturation ABG Base Excess POC ABG pCO2 ABG Hemoglobin ABG Oxyhemoglobin ABG Sodium ABG Chloride ABG Glucose Oxyhemoglobin Sodium Potassium Chloride Carbon Dioxide BUN Creatinine 0.7 L 0.7 L Glucose 111 H 108 H POC Glucose Lactic Acid Calcium Phosphorus Magnesium AST ALT Lactate Dehydrogenase Total Bilirubin Direct Bilirubin CK-MB (CK-2) C-Reactive Protein NT-Pro-B Natriuret Pep Total Protein Albumin 2.6 L Arterial Blood Glucose Urine WBC (Auto) Urine Creatinine 01/12/20 01/12/20 01/12/20 06:03 12:27 13:58 WBC RBC Hgb Hct MCHC RDW MCV MCH Lymph % (Auto) [place] % (Auto) [place] # Eos # Lymph # (Auto) [place] # (Auto) Eos # (Auto) Seg Neutrophils % Seg Neuts % (Manual) Baso # (Auto) Lymphocytes % (Manual) Monocytes % (Manual) Eosinophils % (Manual) Basophils % (Manual) Seg Neutrophils # Seg Neutrophils # Man Lymphocytes # (Manual) Monocytes # (Manual) Eosinophils # (Manual) Nucleated RBC % Basophils # (Manual) PT INR APTT Heparin Anti-Xa Level ABG pH 7.453 H POC ABG pO2 76.6 L ABG pO2 ABG HCO3 ABG O2 Saturation ABG Base Excess POC ABG pCO2 ABG Hemoglobin 10.3 L ABG Oxyhemoglobin ABG Sodium ABG Chloride ABG Glucose 99 H Oxyhemoglobin Sodium Potassium Chloride Carbon Dioxide BUN Creatinine Glucose POC Glucose 128 H 121 H Lactic Acid Calcium Phosphorus Magnesium AST ALT Lactate Dehydrogenase Total Bilirubin Direct Bilirubin CK-MB (CK-2) C-Reactive Protein NT-Pro-B Natriuret Pep Total Protein Albumin Arterial Blood Glucose 99 H Urine WBC (Auto) Urine Creatinine 01/12/20 01/13/20 01/13/20 18:24 12:01 17:46 WBC RBC Hgb Hct MCHC RDW MCV MCH Lymph % (Auto) [place] % (Auto) [place] # Eos # Lymph # (Auto) [place] # (Auto) Eos # (Auto) Seg Neutrophils % Seg Neuts % (Manual) Baso # (Auto) Lymphocytes % (Manual) Monocytes % (Manual) Eosinophils % (Manual) Basophils % (Manual) Seg Neutrophils # Seg Neutrophils # Man Lymphocytes # (Manual) Monocytes # (Manual) Eosinophils # (Manual) Nucleated RBC % Basophils # (Manual) PT INR APTT Heparin Anti-Xa Level ABG pH POC ABG pO2 ABG pO2 ABG HCO3 ABG O2 Saturation ABG Base Excess POC ABG pCO2 ABG Hemoglobin ABG Oxyhemoglobin ABG Sodium ABG Chloride ABG Glucose Oxyhemoglobin Sodium Potassium Chloride Carbon Dioxide BUN Creatinine Glucose POC Glucose 119 H 107 H 124 H Lactic Acid Calcium Phosphorus Magnesium AST ALT Lactate Dehydrogenase Total Bilirubin Direct Bilirubin CK-MB (CK-2) C-Reactive Protein NT-Pro-B Natriuret Pep Total Protein Albumin Arterial Blood Glucose Urine WBC (Auto) Urine Creatinine 01/13/20 01/14/20 01/14/20 20:40 00:10 05:33 WBC RBC Hgb Hct MCHC RDW MCV MCH Lymph % (Auto) [place] % (Auto) [place] # Eos # Lymph # (Auto) [place] # (Auto) Eos # (Auto) Seg Neutrophils % Seg Neuts % (Manual) Baso # (Auto) Lymphocytes % (Manual) Monocytes % (Manual) Eosinophils % (Manual) Basophils % (Manual) Seg Neutrophils # Seg Neutrophils # Man Lymphocytes # (Manual) Monocytes # (Manual) Eosinophils # (Manual) Nucleated RBC % Basophils # (Manual) PT INR APTT Heparin Anti-Xa Level ABG pH POC ABG pO2 ABG pO2 65.3 L ABG HCO3 31.8 H ABG O2 Saturation 93.5 L ABG Base Excess 6.7 H POC ABG pCO2 ABG Hemoglobin 13.3 L ABG Oxyhemoglobin ABG Sodium ABG Chloride ABG Glucose Oxyhemoglobin 90.9 L Sodium Potassium Chloride Carbon Dioxide BUN Creatinine Glucose POC Glucose 111 H 111 H Lactic Acid Calcium Phosphorus Magnesium AST ALT Lactate Dehydrogenase Total Bilirubin Direct Bilirubin CK-MB (CK-2) C-Reactive Protein NT-Pro-B Natriuret Pep Total Protein Albumin Arterial Blood Glucose Urine WBC (Auto) Urine Creatinine 01/14/20 01/14/20 01/14/20 12:10 16:14 16:14 WBC RBC Hgb 10.6 L Hct 34.2 L MCHC 31 L RDW 18.3 H MCV 83 L MCH 26 L Lymph % (Auto) [place] % (Auto) 7.4 H [place] # Eos # Lymph # (Auto) [place] # (Auto) Eos # (Auto) Seg Neutrophils % 71.9 H Seg Neuts % (Manual) Baso # (Auto) Lymphocytes % (Manual) Monocytes % (Manual) Eosinophils % (Manual) Basophils % (Manual) Seg Neutrophils # Seg Neutrophils # Man Lymphocytes # (Manual) Monocytes # (Manual) Eosinophils # (Manual) Nucleated RBC % Basophils # (Manual) PT INR APTT Heparin Anti-Xa Level ABG pH POC ABG pO2 ABG pO2 ABG HCO3 ABG O2 Saturation ABG Base Excess POC ABG pCO2 ABG Hemoglobin ABG Oxyhemoglobin ABG Sodium ABG Chloride ABG Glucose Oxyhemoglobin Sodium Potassium Chloride Carbon Dioxide 31 H BUN Creatinine 0.6 L Glucose 131 H POC Glucose 139 H Lactic Acid Calcium Phosphorus Magnesium AST ALT Lactate Dehydrogenase Total Bilirubin Direct Bilirubin CK-MB (CK-2) C-Reactive Protein NT-Pro-B Natriuret Pep Total Protein Albumin Arterial Blood Glucose Urine WBC (Auto) Urine Creatinine 01/14/20 01/15/20 01/15/20 18:05 00:52 05:35 WBC RBC Hgb Hct MCHC RDW MCV MCH Lymph % (Auto) [place] % (Auto) [place] # Eos # Lymph # (Auto) [place] # (Auto) Eos # (Auto) Seg Neutrophils % Seg Neuts % (Manual) Baso # (Auto) Lymphocytes % (Manual) Monocytes % (Manual) Eosinophils % (Manual) Basophils % (Manual) Seg Neutrophils # Seg Neutrophils # Man Lymphocytes # (Manual) Monocytes # (Manual) Eosinophils # (Manual) Nucleated RBC % Basophils # (Manual) PT INR APTT Heparin Anti-Xa Level ABG pH POC ABG pO2 ABG pO2 ABG HCO3 ABG O2 Saturation ABG Base Excess POC ABG pCO2 ABG Hemoglobin ABG Oxyhemoglobin ABG Sodium ABG Chloride ABG Glucose Oxyhemoglobin Sodium Potassium Chloride Carbon Dioxide BUN Creatinine Glucose POC Glucose 147 H 140 H 159 H Lactic Acid Calcium Phosphorus Magnesium AST ALT Lactate Dehydrogenase Total Bilirubin Direct Bilirubin CK-MB (CK-2) C-Reactive Protein NT-Pro-B Natriuret Pep Total Protein Albumin Arterial Blood Glucose Urine WBC (Auto) Urine Creatinine 01/15/20 01/15/20 01/16/20 12:52 17:43 00:32 WBC RBC Hgb Hct MCHC RDW MCV MCH Lymph % (Auto) [place] % (Auto) [place] # Eos # Lymph # (Auto) [place] # (Auto) Eos # (Auto) Seg Neutrophils % Seg Neuts % (Manual) Baso # (Auto) Lymphocytes % (Manual) Monocytes % (Manual) Eosinophils % (Manual) Basophils % (Manual) Seg Neutrophils # Seg Neutrophils # Man Lymphocytes # (Manual) Monocytes # (Manual) Eosinophils # (Manual) Nucleated RBC % Basophils # (Manual) PT INR APTT Heparin Anti-Xa Level ABG pH POC ABG pO2 ABG pO2 ABG HCO3 ABG O2 Saturation ABG Base Excess POC ABG pCO2 ABG Hemoglobin ABG Oxyhemoglobin ABG Sodium ABG Chloride ABG Glucose Oxyhemoglobin Sodium Potassium Chloride Carbon Dioxide BUN Creatinine Glucose POC Glucose 164 H 167 H 153 H Lactic Acid Calcium Phosphorus Magnesium AST ALT Lactate Dehydrogenase Total Bilirubin Direct Bilirubin CK-MB (CK-2) C-Reactive Protein NT-Pro-B Natriuret Pep Total Protein Albumin Arterial Blood Glucose Urine WBC (Auto) Urine Creatinine 01/16/20 01/16/20 01/17/20 05:46 11:48 06:38 WBC RBC Hgb Hct MCHC RDW MCV MCH Lymph % (Auto) [place] % (Auto) [place] # Eos # Lymph # (Auto) [place] # (Auto) Eos # (Auto) Seg Neutrophils % Seg Neuts % (Manual) Baso # (Auto) Lymphocytes % (Manual) Monocytes % (Manual) Eosinophils % (Manual) Basophils % (Manual) Seg Neutrophils # Seg Neutrophils # Man Lymphocytes # (Manual) Monocytes # (Manual) Eosinophils # (Manual) Nucleated RBC % Basophils # (Manual) PT INR APTT Heparin Anti-Xa Level ABG pH POC ABG pO2 ABG pO2 ABG HCO3 ABG O2 Saturation ABG Base Excess POC ABG pCO2 ABG Hemoglobin ABG Oxyhemoglobin ABG Sodium ABG Chloride ABG Glucose Oxyhemoglobin Sodium Potassium Chloride Carbon Dioxide BUN Creatinine Glucose POC Glucose 163 H 155 H 116 H Lactic Acid Calcium Phosphorus Magnesium AST ALT Lactate Dehydrogenase Total Bilirubin Direct Bilirubin CK-MB (CK-2) C-Reactive Protein NT-Pro-B Natriuret Pep Total Protein Albumin Arterial Blood Glucose Urine WBC (Auto) Urine Creatinine 01/17/20 01/17/20 01/18/20 11:36 17:43 00:12 WBC RBC Hgb Hct MCHC RDW MCV MCH Lymph % (Auto) [place] % (Auto) [place] # Eos # Lymph # (Auto) [place] # (Auto) Eos # (Auto) Seg Neutrophils % Seg Neuts % (Manual) Baso # (Auto) Lymphocytes % (Manual) Monocytes % (Manual) Eosinophils % (Manual) Basophils % (Manual) Seg Neutrophils # Seg Neutrophils # Man Lymphocytes # (Manual) Monocytes # (Manual) Eosinophils # (Manual) Nucleated RBC % Basophils # (Manual) PT INR APTT Heparin Anti-Xa Level ABG pH POC ABG pO2 ABG pO2 ABG HCO3 ABG O2 Saturation ABG Base Excess POC ABG pCO2 ABG Hemoglobin ABG Oxyhemoglobin ABG Sodium ABG Chloride ABG Glucose Oxyhemoglobin Sodium Potassium Chloride Carbon Dioxide BUN Creatinine Glucose POC Glucose 110 H 134 H 108 H Lactic Acid Calcium Phosphorus Magnesium AST ALT Lactate Dehydrogenase Total Bilirubin Direct Bilirubin CK-MB (CK-2) C-Reactive Protein NT-Pro-B Natriuret Pep Total Protein Albumin Arterial Blood Glucose Urine WBC (Auto) Urine Creatinine 01/18/20 01/18/20 01/18/20 05:37 06:46 06:46 WBC RBC Hgb 10.1 L Hct 32.2 L MCHC 31 L RDW 18.1 H MCV 81 L MCH 25 L Lymph % (Auto) [place] % (Auto) [place] # Eos # Lymph # (Auto) [place] # (Auto) Eos # (Auto) Seg Neutrophils % 71.9 H Seg Neuts % (Manual) Baso # (Auto) Lymphocytes % (Manual) Monocytes % (Manual) Eosinophils % (Manual) Basophils % (Manual) Seg Neutrophils # Seg Neutrophils # Man Lymphocytes # (Manual) Monocytes # (Manual) Eosinophils # (Manual) Nucleated RBC % Basophils # (Manual) PT INR APTT Heparin Anti-Xa Level ABG pH POC ABG pO2 ABG pO2 ABG HCO3 ABG O2 Saturation ABG Base Excess POC ABG pCO2 ABG Hemoglobin ABG Oxyhemoglobin ABG Sodium ABG Chloride ABG Glucose Oxyhemoglobin Sodium Potassium Chloride Carbon Dioxide BUN Creatinine 0.7 L Glucose 155 H POC Glucose 168 H Lactic Acid Calcium Phosphorus Magnesium AST ALT Lactate Dehydrogenase Total Bilirubin Direct Bilirubin CK-MB (CK-2) C-Reactive Protein NT-Pro-B Natriuret Pep Total Protein Albumin Arterial Blood Glucose Urine WBC (Auto) Urine Creatinine 01/18/20 01/18/20 01/18/20 12:05 17:14 23:28 WBC RBC Hgb Hct MCHC RDW MCV MCH Lymph % (Auto) [place] % (Auto) [place] # Eos # Lymph # (Auto) [place] # (Auto) Eos # (Auto) Seg Neutrophils % Seg Neuts % (Manual) Baso # (Auto) Lymphocytes % (Manual) Monocytes % (Manual) Eosinophils % (Manual) Basophils % (Manual) Seg Neutrophils # Seg Neutrophils # Man Lymphocytes # (Manual) Monocytes # (Manual) Eosinophils # (Manual) Nucleated RBC % Basophils # (Manual) PT INR APTT Heparin Anti-Xa Level ABG pH POC ABG pO2 ABG pO2 ABG HCO3 ABG O2 Saturation ABG Base Excess POC ABG pCO2 ABG Hemoglobin ABG Oxyhemoglobin ABG Sodium ABG Chloride ABG Glucose Oxyhemoglobin Sodium Potassium Chloride Carbon Dioxide BUN Creatinine Glucose POC Glucose 128 H 126 H 128 H Lactic Acid Calcium Phosphorus Magnesium AST ALT Lactate Dehydrogenase Total Bilirubin Direct Bilirubin CK-MB (CK-2) C-Reactive Protein NT-Pro-B Natriuret Pep Total Protein Albumin Arterial Blood Glucose Urine WBC (Auto) Urine Creatinine 01/19/20 01/19/20 01/19/20 05:39 12:33 17:36 WBC RBC Hgb Hct MCHC RDW MCV MCH Lymph % (Auto) [place] % (Auto) [place] # Eos # Lymph # (Auto) [place] # (Auto) Eos # (Auto) Seg Neutrophils % Seg Neuts % (Manual) Baso # (Auto) Lymphocytes % (Manual) Monocytes % (Manual) Eosinophils % (Manual) Basophils % (Manual) Seg Neutrophils # Seg Neutrophils # Man Lymphocytes # (Manual) Monocytes # (Manual) Eosinophils # (Manual) Nucleated RBC % Basophils # (Manual) PT INR APTT Heparin Anti-Xa Level ABG pH POC ABG pO2 ABG pO2 ABG HCO3 ABG O2 Saturation ABG Base Excess POC ABG pCO2 ABG Hemoglobin ABG Oxyhemoglobin ABG Sodium ABG Chloride ABG Glucose Oxyhemoglobin Sodium Potassium Chloride Carbon Dioxide BUN Creatinine Glucose POC Glucose 164 H 171 H 152 H Lactic Acid Calcium Phosphorus Magnesium AST ALT Lactate Dehydrogenase Total Bilirubin Direct Bilirubin CK-MB (CK-2) C-Reactive Protein NT-Pro-B Natriuret Pep Total Protein Albumin Arterial Blood Glucose Urine WBC (Auto) Urine Creatinine 01/20/20 01/20/20 01/20/20 00:12 05:20 05:35 WBC RBC Hgb 9.2 L Hct 29.4 L MCHC 31 L RDW 17.9 H MCV 81 L MCH 25 L Lymph % (Auto) [place] % (Auto) [place] # Eos # Lymph # (Auto) [place] # (Auto) Eos # (Auto) Seg Neutrophils % Seg Neuts % (Manual) Baso # (Auto) Lymphocytes % (Manual) Monocytes % (Manual) Eosinophils % (Manual) Basophils % (Manual) Seg Neutrophils # Seg Neutrophils # Man Lymphocytes # (Manual) Monocytes # (Manual) Eosinophils # (Manual) Nucleated RBC % Basophils # (Manual) PT INR APTT Heparin Anti-Xa Level ABG pH POC ABG pO2 ABG pO2 ABG HCO3 ABG O2 Saturation ABG Base Excess POC ABG pCO2 ABG Hemoglobin ABG Oxyhemoglobin ABG Sodium ABG Chloride ABG Glucose Oxyhemoglobin Sodium Potassium Chloride Carbon Dioxide BUN Creatinine Glucose POC Glucose 120 H 136 H Lactic Acid Calcium Phosphorus Magnesium AST ALT Lactate Dehydrogenase Total Bilirubin Direct Bilirubin CK-MB (CK-2) C-Reactive Protein NT-Pro-B Natriuret Pep Total Protein Albumin Arterial Blood Glucose Urine WBC (Auto) Urine Creatinine 01/20/20 01/20/20 01/20/20 05:40 11:58 14:55 WBC RBC Hgb 9.0 L Hct 28.3 L MCHC RDW MCV MCH Lymph % (Auto) [place] % (Auto) [place] # Eos # Lymph # (Auto) [place] # (Auto) Eos # (Auto) Seg Neutrophils % Seg Neuts % (Manual) Baso # (Auto) Lymphocytes % (Manual) Monocytes % (Manual) Eosinophils % (Manual) Basophils % (Manual) Seg Neutrophils # Seg Neutrophils # Man Lymphocytes # (Manual) Monocytes # (Manual) Eosinophils # (Manual) Nucleated RBC % Basophils # (Manual) PT INR APTT Heparin Anti-Xa Level ABG pH POC ABG pO2 ABG pO2 ABG HCO3 ABG O2 Saturation ABG Base Excess POC ABG pCO2 ABG Hemoglobin ABG Oxyhemoglobin ABG Sodium ABG Chloride ABG Glucose Oxyhemoglobin Sodium Potassium Chloride Carbon Dioxide 32 H BUN 22 H Creatinine 0.7 L Glucose 128 H POC Glucose 152 H Lactic Acid Calcium Phosphorus Magnesium AST ALT Lactate Dehydrogenase Total Bilirubin Direct Bilirubin CK-MB (CK-2) C-Reactive Protein NT-Pro-B Natriuret Pep Total Protein Albumin Arterial Blood Glucose Urine WBC (Auto) Urine Creatinine 01/20/20 01/20/20 01/20/20 14:55 18:14 21:35 WBC RBC Hgb Hct MCHC RDW MCV MCH Lymph % (Auto) [place] % (Auto) [place] # Eos # Lymph # (Auto) [place] # (Auto) Eos # (Auto) Seg Neutrophils % Seg Neuts % (Manual) Baso # (Auto) Lymphocytes % (Manual) Monocytes % (Manual) Eosinophils % (Manual) Basophils % (Manual) Seg Neutrophils # Seg Neutrophils # Man Lymphocytes # (Manual) Monocytes # (Manual) Eosinophils # (Manual) Nucleated RBC % Basophils # (Manual) PT 20.4 H INR 1.72 H APTT 40.6 H Heparin Anti-Xa Level > 2.00 H ABG pH POC ABG pO2 ABG pO2 ABG HCO3 ABG O2 Saturation ABG Base Excess POC ABG pCO2 ABG Hemoglobin ABG Oxyhemoglobin ABG Sodium ABG Chloride ABG Glucose Oxyhemoglobin Sodium Potassium Chloride Carbon Dioxide BUN Creatinine Glucose POC Glucose 150 H Lactic Acid Calcium Phosphorus Magnesium AST ALT Lactate Dehydrogenase Total Bilirubin Direct Bilirubin CK-MB (CK-2) C-Reactive Protein NT-Pro-B Natriuret Pep Total Protein Albumin Arterial Blood Glucose Urine WBC (Auto) Urine Creatinine 01/21/20 01/21/20 01/21/20 00:30 05:47 05:59 WBC RBC Hgb Hct MCHC RDW MCV MCH Lymph % (Auto) [place] % (Auto) [place] # Eos # Lymph # (Auto) [place] # (Auto) Eos # (Auto) Seg Neutrophils % Seg Neuts % (Manual) Baso # (Auto) Lymphocytes % (Manual) Monocytes % (Manual) Eosinophils % (Manual) Basophils % (Manual) Seg Neutrophils # Seg Neutrophils # Man Lymphocytes # (Manual) Monocytes # (Manual) Eosinophils # (Manual) Nucleated RBC % Basophils # (Manual) PT INR APTT Heparin Anti-Xa Level 1.93 H ABG pH POC ABG pO2 ABG pO2 ABG HCO3 ABG O2 Saturation ABG Base Excess POC ABG pCO2 ABG Hemoglobin ABG Oxyhemoglobin ABG Sodium ABG Chloride ABG Glucose Oxyhemoglobin Sodium Potassium Chloride Carbon Dioxide BUN Creatinine Glucose POC Glucose 126 H 148 H Lactic Acid Calcium Phosphorus Magnesium AST ALT Lactate Dehydrogenase Total Bilirubin Direct Bilirubin CK-MB (CK-2) C-Reactive Protein NT-Pro-B Natriuret Pep Total Protein Albumin Arterial Blood Glucose Urine WBC (Auto) Urine Creatinine 01/21/20 01/21/20 01/21/20 12:32 18:20 23:54 WBC RBC Hgb Hct MCHC RDW MCV MCH Lymph % (Auto) [place] % (Auto) [place] # Eos # Lymph # (Auto) [place] # (Auto) Eos # (Auto) Seg Neutrophils % Seg Neuts % (Manual) Baso # (Auto) Lymphocytes % (Manual) Monocytes % (Manual) Eosinophils % (Manual) Basophils % (Manual) Seg Neutrophils # Seg Neutrophils # Man Lymphocytes # (Manual) Monocytes # (Manual) Eosinophils # (Manual) Nucleated RBC % Basophils # (Manual) PT INR APTT Heparin Anti-Xa Level 1.28 H ABG pH POC ABG pO2 ABG pO2 ABG HCO3 ABG O2 Saturation ABG Base Excess POC ABG pCO2 ABG Hemoglobin ABG Oxyhemoglobin ABG Sodium ABG Chloride ABG Glucose Oxyhemoglobin Sodium Potassium Chloride Carbon Dioxide BUN Creatinine Glucose POC Glucose 112 H 146 H Lactic Acid Calcium Phosphorus Magnesium AST ALT Lactate Dehydrogenase Total Bilirubin Direct Bilirubin CK-MB (CK-2) C-Reactive Protein NT-Pro-B Natriuret Pep Total Protein Albumin Arterial Blood Glucose Urine WBC (Auto) Urine Creatinine 01/22/20 01/22/20 01/22/20 04:45 04:45 05:48 WBC RBC Hgb 9.3 L Hct 29.0 L MCHC RDW MCV MCH Lymph % (Auto) [place] % (Auto) [place] # Eos # Lymph # (Auto) [place] # (Auto) Eos # (Auto) Seg Neutrophils % Seg Neuts % (Manual) Baso # (Auto) Lymphocytes % (Manual) Monocytes % (Manual) Eosinophils % (Manual) Basophils % (Manual) Seg Neutrophils # Seg Neutrophils # Man Lymphocytes # (Manual) Monocytes # (Manual) Eosinophils # (Manual) Nucleated RBC % Basophils # (Manual) PT INR APTT Heparin Anti-Xa Level 1.34 H ABG pH POC ABG pO2 ABG pO2 ABG HCO3 ABG O2 Saturation ABG Base Excess POC ABG pCO2 ABG Hemoglobin ABG Oxyhemoglobin ABG Sodium ABG Chloride ABG Glucose Oxyhemoglobin Sodium Potassium Chloride Carbon Dioxide BUN Creatinine Glucose POC Glucose 142 H Lactic Acid Calcium Phosphorus Magnesium AST ALT Lactate Dehydrogenase Total Bilirubin Direct Bilirubin CK-MB (CK-2) C-Reactive Protein NT-Pro-B Natriuret Pep Total Protein Albumin Arterial Blood Glucose Urine WBC (Auto) Urine Creatinine 01/22/20 01/22/20 01/22/20 08:09 08:22 09:58 WBC RBC Hgb Hct MCHC RDW MCV MCH Lymph % (Auto) [place] % (Auto) [place] # Eos # Lymph # (Auto) [place] # (Auto) Eos # (Auto) Seg Neutrophils % Seg Neuts % (Manual) Baso # (Auto) Lymphocytes % (Manual) Monocytes % (Manual) Eosinophils % (Manual) Basophils % (Manual) Seg Neutrophils # Seg Neutrophils # Man Lymphocytes # (Manual) Monocytes # (Manual) Eosinophils # (Manual) Nucleated RBC % Basophils # (Manual) PT 16.9 H INR 1.34 H APTT Heparin Anti-Xa Level ABG pH POC ABG pO2 ABG pO2 ABG HCO3 ABG O2 Saturation ABG Base Excess POC ABG pCO2 ABG Hemoglobin ABG Oxyhemoglobin ABG Sodium ABG Chloride ABG Glucose Oxyhemoglobin Sodium Potassium Chloride 97.8 L Carbon Dioxide BUN 29 H Creatinine Glucose 128 H POC Glucose 131 H Lactic Acid Calcium Phosphorus Magnesium AST ALT Lactate Dehydrogenase Total Bilirubin Direct Bilirubin CK-MB (CK-2) C-Reactive Protein NT-Pro-B Natriuret Pep Total Protein Albumin Arterial Blood Glucose Urine WBC (Auto) Urine Creatinine 01/22/20 01/22/20 01/22/20 12:44 16:13 18:18 WBC RBC Hgb Hct MCHC RDW MCV MCH Lymph % (Auto) [place] % (Auto) [place] # Eos # Lymph # (Auto) [place] # (Auto) Eos # (Auto) Seg Neutrophils % Seg Neuts % (Manual) Baso # (Auto) Lymphocytes % (Manual) Monocytes % (Manual) Eosinophils % (Manual) Basophils % (Manual) Seg Neutrophils # Seg Neutrophils # Man Lymphocytes # (Manual) Monocytes # (Manual) Eosinophils # (Manual) Nucleated RBC % Basophils # (Manual) PT INR APTT Heparin Anti-Xa Level ABG pH POC ABG pO2 ABG pO2 ABG HCO3 ABG O2 Saturation ABG Base Excess POC ABG pCO2 ABG Hemoglobin ABG Oxyhemoglobin ABG Sodium ABG Chloride ABG Glucose Oxyhemoglobin Sodium Potassium Chloride Carbon Dioxide BUN Creatinine Glucose POC Glucose 156 H 133 H 155 H Lactic Acid Calcium Phosphorus Magnesium AST ALT Lactate Dehydrogenase Total Bilirubin Direct Bilirubin CK-MB (CK-2) C-Reactive Protein NT-Pro-B Natriuret Pep Total Protein Albumin Arterial Blood Glucose Urine WBC (Auto) Urine Creatinine 01/22/20 01/23/20 01/23/20 23:22 05:37 12:59 WBC RBC Hgb Hct MCHC RDW MCV MCH Lymph % (Auto) [place] % (Auto) [place] # Eos # Lymph # (Auto) [place] # (Auto) Eos # (Auto) Seg Neutrophils % Seg Neuts % (Manual) Baso # (Auto) Lymphocytes % (Manual) Monocytes % (Manual) Eosinophils % (Manual) Basophils % (Manual) Seg Neutrophils # Seg Neutrophils # Man Lymphocytes # (Manual) Monocytes # (Manual) Eosinophils # (Manual) Nucleated RBC % Basophils # (Manual) PT INR APTT Heparin Anti-Xa Level ABG pH POC ABG pO2 ABG pO2 ABG HCO3 ABG O2 Saturation ABG Base Excess POC ABG pCO2 ABG Hemoglobin ABG Oxyhemoglobin ABG Sodium ABG Chloride ABG Glucose Oxyhemoglobin Sodium Potassium Chloride Carbon Dioxide BUN Creatinine Glucose POC Glucose 148 H 163 H 175 H Lactic Acid Calcium Phosphorus Magnesium AST ALT Lactate Dehydrogenase Total Bilirubin Direct Bilirubin CK-MB (CK-2) C-Reactive Protein NT-Pro-B Natriuret Pep Total Protein Albumin Arterial Blood Glucose Urine WBC (Auto) Urine Creatinine 01/23/20 01/23/20 01/24/20 17:28 23:56 04:30 WBC RBC 3.46 L Hgb 8.8 L Hct 27.8 L MCHC RDW 18.2 H MCV 81 L MCH 25 L Lymph % (Auto) [place] % (Auto) 7.8 H [place] # Eos # Lymph # (Auto) [place] # (Auto) Eos # (Auto) Seg Neutrophils % Seg Neuts % (Manual) Baso # (Auto) Lymphocytes % (Manual) Monocytes % (Manual) Eosinophils % (Manual) Basophils % (Manual) Seg Neutrophils # Seg Neutrophils # Man Lymphocytes # (Manual) Monocytes # (Manual) Eosinophils # (Manual) Nucleated RBC % Basophils # (Manual) PT INR APTT Heparin Anti-Xa Level ABG pH POC ABG pO2 ABG pO2 ABG HCO3 ABG O2 Saturation ABG Base Excess POC ABG pCO2 ABG Hemoglobin ABG Oxyhemoglobin ABG Sodium ABG Chloride ABG Glucose Oxyhemoglobin Sodium Potassium Chloride Carbon Dioxide BUN Creatinine Glucose POC Glucose 165 H 177 H Lactic Acid Calcium Phosphorus Magnesium AST ALT Lactate Dehydrogenase Total Bilirubin Direct Bilirubin CK-MB (CK-2) C-Reactive Protein NT-Pro-B Natriuret Pep Total Protein Albumin Arterial Blood Glucose Urine WBC (Auto) Urine Creatinine 01/24/20 01/24/20 01/24/20 04:30 07:18 12:06 WBC RBC Hgb Hct MCHC RDW MCV MCH Lymph % (Auto) [place] % (Auto) [place] # Eos # Lymph # (Auto) [place] # (Auto) Eos # (Auto) Seg Neutrophils % Seg Neuts % (Manual) Baso # (Auto) Lymphocytes % (Manual) Monocytes % (Manual) Eosinophils % (Manual) Basophils % (Manual) Seg Neutrophils # Seg Neutrophils # Man Lymphocytes # (Manual) Monocytes # (Manual) Eosinophils # (Manual) Nucleated RBC % Basophils # (Manual) PT INR APTT Heparin Anti-Xa Level ABG pH POC ABG pO2 ABG pO2 ABG HCO3 ABG O2 Saturation ABG Base Excess POC ABG pCO2 ABG Hemoglobin ABG Oxyhemoglobin ABG Sodium ABG Chloride ABG Glucose Oxyhemoglobin Sodium Potassium Chloride 97.9 L Carbon Dioxide BUN 31 H Creatinine Glucose 146 H POC Glucose 151 H 133 H Lactic Acid Calcium Phosphorus Magnesium AST ALT Lactate Dehydrogenase Total Bilirubin Direct Bilirubin CK-MB (CK-2) C-Reactive Protein NT-Pro-B Natriuret Pep Total Protein Albumin Arterial Blood Glucose Urine WBC (Auto) Urine Creatinine 01/24/20 01/25/20 01/25/20 17:36 00:08 04:25 WBC RBC 3.50 L Hgb 8.7 L Hct 27.9 L MCHC 31 L RDW 18.2 H MCV 80 L MCH 25 L Lymph % (Auto) [place] % (Auto) 8.5 H [place] # Eos # Lymph # (Auto) [place] # (Auto) Eos # (Auto) Seg Neutrophils % Seg Neuts % (Manual) Baso # (Auto) Lymphocytes % (Manual) Monocytes % (Manual) Eosinophils % (Manual) Basophils % (Manual) Seg Neutrophils # Seg Neutrophils # Man Lymphocytes # (Manual) Monocytes # (Manual) Eosinophils # (Manual) Nucleated RBC % Basophils # (Manual) PT INR APTT Heparin Anti-Xa Level ABG pH POC ABG pO2 ABG pO2 ABG HCO3 ABG O2 Saturation ABG Base Excess POC ABG pCO2 ABG Hemoglobin ABG Oxyhemoglobin ABG Sodium ABG Chloride ABG Glucose Oxyhemoglobin Sodium Potassium Chloride Carbon Dioxide BUN Creatinine Glucose POC Glucose 133 H 129 H Lactic Acid Calcium Phosphorus Magnesium AST ALT Lactate Dehydrogenase Total Bilirubin Direct Bilirubin CK-MB (CK-2) C-Reactive Protein NT-Pro-B Natriuret Pep Total Protein Albumin Arterial Blood Glucose Urine WBC (Auto) Urine Creatinine 01/25/20 01/25/20 01/25/20 04:25 05:38 11:52 WBC RBC Hgb Hct MCHC RDW MCV MCH Lymph % (Auto) [place] % (Auto) [place] # Eos # Lymph # (Auto) [place] # (Auto) Eos # (Auto) Seg Neutrophils % Seg Neuts % (Manual) Baso # (Auto) Lymphocytes % (Manual) Monocytes % (Manual) Eosinophils % (Manual) Basophils % (Manual) Seg Neutrophils # Seg Neutrophils # Man Lymphocytes # (Manual) Monocytes # (Manual) Eosinophils # (Manual) Nucleated RBC % Basophils # (Manual) PT INR APTT Heparin Anti-Xa Level ABG pH POC ABG pO2 ABG pO2 ABG HCO3 ABG O2 Saturation ABG Base Excess POC ABG pCO2 ABG Hemoglobin ABG Oxyhemoglobin ABG Sodium ABG Chloride ABG Glucose Oxyhemoglobin Sodium Potassium Chloride Carbon Dioxide BUN 30 H Creatinine Glucose 134 H POC Glucose 129 H 134 H Lactic Acid Calcium Phosphorus Magnesium AST ALT Lactate Dehydrogenase Total Bilirubin Direct Bilirubin CK-MB (CK-2) C-Reactive Protein NT-Pro-B Natriuret Pep Total Protein Albumin Arterial Blood Glucose Urine WBC (Auto) Urine Creatinine 01/25/20 01/25/20 01/26/20 17:13 21:02 00:59 WBC RBC Hgb Hct MCHC RDW MCV MCH Lymph % (Auto) [place] % (Auto) [place] # Eos # Lymph # (Auto) [place] # (Auto) Eos # (Auto) Seg Neutrophils % Seg Neuts % (Manual) Baso # (Auto) Lymphocytes % (Manual) Monocytes % (Manual) Eosinophils % (Manual) Basophils % (Manual) Seg Neutrophils # Seg Neutrophils # Man Lymphocytes # (Manual) Monocytes # (Manual) Eosinophils # (Manual) Nucleated RBC % Basophils # (Manual) PT INR APTT Heparin Anti-Xa Level ABG pH POC ABG pO2 ABG pO2 57.5 L ABG HCO3 31.7 H ABG O2 Saturation 90.3 L ABG Base Excess 6.6 H POC ABG pCO2 ABG Hemoglobin 13.0 L ABG Oxyhemoglobin ABG Sodium ABG Chloride ABG Glucose Oxyhemoglobin 87.5 L Sodium Potassium Chloride Carbon Dioxide BUN Creatinine Glucose POC Glucose 124 H 196 H Lactic Acid Calcium Phosphorus Magnesium AST ALT Lactate Dehydrogenase Total Bilirubin Direct Bilirubin CK-MB (CK-2) C-Reactive Protein NT-Pro-B Natriuret Pep Total Protein Albumin Arterial Blood Glucose Urine WBC (Auto) Urine Creatinine 01/26/20 01/26/20 01/26/20 03:20 05:46 12:46 WBC RBC Hgb 9.2 L Hct 29.4 L MCHC RDW MCV MCH Lymph % (Auto) [place] % (Auto) [place] # Eos # Lymph # (Auto) [place] # (Auto) Eos # (Auto) Seg Neutrophils % Seg Neuts % (Manual) Baso # (Auto) Lymphocytes % (Manual) Monocytes % (Manual) Eosinophils % (Manual) Basophils % (Manual) Seg Neutrophils # Seg Neutrophils # Man Lymphocytes # (Manual) Monocytes # (Manual) Eosinophils # (Manual) Nucleated RBC % Basophils # (Manual) PT INR APTT Heparin Anti-Xa Level ABG pH POC ABG pO2 ABG pO2 ABG HCO3 ABG O2 Saturation ABG Base Excess POC ABG pCO2 ABG Hemoglobin ABG Oxyhemoglobin ABG Sodium ABG Chloride ABG Glucose Oxyhemoglobin Sodium Potassium Chloride Carbon Dioxide BUN Creatinine Glucose POC Glucose 141 H 122 H Lactic Acid Calcium Phosphorus Magnesium AST ALT Lactate Dehydrogenase Total Bilirubin Direct Bilirubin CK-MB (CK-2) C-Reactive Protein NT-Pro-B Natriuret Pep Total Protein Albumin Arterial Blood Glucose Urine WBC (Auto) Urine Creatinine 01/26/20 01/26/20 01/27/20 18:03 23:55 04:47 WBC RBC Hgb Hct MCHC RDW MCV MCH Lymph % (Auto) [place] % (Auto) [place] # Eos # Lymph # (Auto) [place] # (Auto) Eos # (Auto) Seg Neutrophils % Seg Neuts % (Manual) Baso # (Auto) Lymphocytes % (Manual) Monocytes % (Manual) Eosinophils % (Manual) Basophils % (Manual) Seg Neutrophils # Seg Neutrophils # Man Lymphocytes # (Manual) Monocytes # (Manual) Eosinophils # (Manual) Nucleated RBC % Basophils # (Manual) PT INR APTT Heparin Anti-Xa Level ABG pH POC ABG pO2 ABG pO2 ABG HCO3 ABG O2 Saturation ABG Base Excess POC ABG pCO2 ABG Hemoglobin ABG Oxyhemoglobin ABG Sodium ABG Chloride ABG Glucose Oxyhemoglobin Sodium Potassium Chloride Carbon Dioxide BUN 30 H Creatinine 0.7 L Glucose 135 H POC Glucose 142 H 159 H Lactic Acid Calcium Phosphorus Magnesium AST ALT Lactate Dehydrogenase Total Bilirubin Direct Bilirubin CK-MB (CK-2) C-Reactive Protein NT-Pro-B Natriuret Pep Total Protein Albumin Arterial Blood Glucose Urine WBC (Auto) Urine Creatinine 01/27/20 01/27/20 01/27/20 05:43 12:06 17:16 WBC RBC Hgb Hct MCHC RDW MCV MCH Lymph % (Auto) [place] % (Auto) [place] # Eos # Lymph # (Auto) [place] # (Auto) Eos # (Auto) Seg Neutrophils % Seg Neuts % (Manual) Baso # (Auto) Lymphocytes % (Manual) Monocytes % (Manual) Eosinophils % (Manual) Basophils % (Manual) Seg Neutrophils # Seg Neutrophils # Man Lymphocytes # (Manual) Monocytes # (Manual) Eosinophils # (Manual) Nucleated RBC % Basophils # (Manual) PT INR APTT Heparin Anti-Xa Level ABG pH POC ABG pO2 ABG pO2 ABG HCO3 ABG O2 Saturation ABG Base Excess POC ABG pCO2 ABG Hemoglobin ABG Oxyhemoglobin ABG Sodium ABG Chloride ABG Glucose Oxyhemoglobin Sodium Potassium Chloride Carbon Dioxide BUN Creatinine Glucose POC Glucose 143 H 142 H 128 H Lactic Acid Calcium Phosphorus Magnesium AST ALT Lactate Dehydrogenase Total Bilirubin Direct Bilirubin CK-MB (CK-2) C-Reactive Protein NT-Pro-B Natriuret Pep Total Protein Albumin Arterial Blood Glucose Urine WBC (Auto) Urine Creatinine 01/27/20 01/28/20 01/28/20 23:55 04:37 05:55 WBC RBC Hgb 9.4 L Hct 29.9 L MCHC RDW MCV MCH Lymph % (Auto) [place] % (Auto) [place] # Eos # Lymph # (Auto) [place] # (Auto) Eos # (Auto) Seg Neutrophils % Seg Neuts % (Manual) Baso # (Auto) Lymphocytes % (Manual) Monocytes % (Manual) Eosinophils % (Manual) Basophils % (Manual) Seg Neutrophils # Seg Neutrophils # Man Lymphocytes # (Manual) Monocytes # (Manual) Eosinophils # (Manual) Nucleated RBC % Basophils # (Manual) PT INR APTT Heparin Anti-Xa Level ABG pH POC ABG pO2 ABG pO2 ABG HCO3 ABG O2 Saturation ABG Base Excess POC ABG pCO2 ABG Hemoglobin ABG Oxyhemoglobin ABG Sodium ABG Chloride ABG Glucose Oxyhemoglobin Sodium Potassium Chloride Carbon Dioxide BUN Creatinine Glucose POC Glucose 166 H 169 H Lactic Acid Calcium Phosphorus Magnesium AST ALT Lactate Dehydrogenase Total Bilirubin Direct Bilirubin CK-MB (CK-2) C-Reactive Protein NT-Pro-B Natriuret Pep Total Protein Albumin Arterial Blood Glucose Urine WBC (Auto) Urine Creatinine 01/28/20 01/28/20 01/28/20 11:58 17:26 23:46 WBC RBC Hgb Hct MCHC RDW MCV MCH Lymph % (Auto) [place] % (Auto) [place] # Eos # Lymph # (Auto) [place] # (Auto) Eos # (Auto) Seg Neutrophils % Seg Neuts % (Manual) Baso # (Auto) Lymphocytes % (Manual) Monocytes % (Manual) Eosinophils % (Manual) Basophils % (Manual) Seg Neutrophils # Seg Neutrophils # Man Lymphocytes # (Manual) Monocytes # (Manual) Eosinophils # (Manual) Nucleated RBC % Basophils # (Manual) PT INR APTT Heparin Anti-Xa Level ABG pH POC ABG pO2 ABG pO2 ABG HCO3 ABG O2 Saturation ABG Base Excess POC ABG pCO2 ABG Hemoglobin ABG Oxyhemoglobin ABG Sodium ABG Chloride ABG Glucose Oxyhemoglobin Sodium Potassium Chloride Carbon Dioxide BUN Creatinine Glucose POC Glucose 130 H 126 H 150 H Lactic Acid Calcium Phosphorus Magnesium AST ALT Lactate Dehydrogenase Total Bilirubin Direct Bilirubin CK-MB (CK-2) C-Reactive Protein NT-Pro-B Natriuret Pep Total Protein Albumin Arterial Blood Glucose Urine WBC (Auto) Urine Creatinine 01/29/20 01/29/20 01/29/20 04:55 06:00 12:28 WBC RBC Hgb Hct MCHC RDW MCV MCH Lymph % (Auto) [place] % (Auto) [place] # Eos # Lymph # (Auto) [place] # (Auto) Eos # (Auto) Seg Neutrophils % Seg Neuts % (Manual) Baso # (Auto) Lymphocytes % (Manual) Monocytes % (Manual) Eosinophils % (Manual) Basophils % (Manual) Seg Neutrophils # Seg Neutrophils # Man Lymphocytes # (Manual) Monocytes # (Manual) Eosinophils # (Manual) Nucleated RBC % Basophils # (Manual) PT INR APTT Heparin Anti-Xa Level ABG pH POC ABG pO2 ABG pO2 ABG HCO3 ABG O2 Saturation ABG Base Excess POC ABG pCO2 ABG Hemoglobin ABG Oxyhemoglobin ABG Sodium ABG Chloride ABG Glucose Oxyhemoglobin Sodium Potassium Chloride Carbon Dioxide 34 H BUN Creatinine 0.6 L Glucose 152 H POC Glucose 157 H 156 H Lactic Acid Calcium Phosphorus Magnesium AST ALT Lactate Dehydrogenase Total Bilirubin Direct Bilirubin CK-MB (CK-2) C-Reactive Protein NT-Pro-B Natriuret Pep Total Protein Albumin Arterial Blood Glucose Urine WBC (Auto) Urine Creatinine 01/29/20 01/30/20 01/30/20 19:06 00:29 05:39 WBC RBC Hgb Hct MCHC RDW MCV MCH Lymph % (Auto) [place] % (Auto) [place] # Eos # Lymph # (Auto) [place] # (Auto) Eos # (Auto) Seg Neutrophils % Seg Neuts % (Manual) Baso # (Auto) Lymphocytes % (Manual) Monocytes % (Manual) Eosinophils % (Manual) Basophils % (Manual) Seg Neutrophils # Seg Neutrophils # Man Lymphocytes # (Manual) Monocytes # (Manual) Eosinophils # (Manual) Nucleated RBC % Basophils # (Manual) PT INR APTT Heparin Anti-Xa Level ABG pH POC ABG pO2 ABG pO2 ABG HCO3 ABG O2 Saturation ABG Base Excess POC ABG pCO2 ABG Hemoglobin ABG Oxyhemoglobin ABG Sodium ABG Chloride ABG Glucose Oxyhemoglobin Sodium Potassium Chloride Carbon Dioxide BUN Creatinine Glucose POC Glucose 152 H 132 H 159 H Lactic Acid Calcium Phosphorus Magnesium AST ALT Lactate Dehydrogenase Total Bilirubin Direct Bilirubin CK-MB (CK-2) C-Reactive Protein NT-Pro-B Natriuret Pep Total Protein Albumin Arterial Blood Glucose Urine WBC (Auto) Urine Creatinine 01/30/20 01/30/20 01/30/20 12:27 17:42 23:28 WBC RBC Hgb Hct MCHC RDW MCV MCH Lymph % (Auto) [place] % (Auto) [place] # Eos # Lymph # (Auto) [place] # (Auto) Eos # (Auto) Seg Neutrophils % Seg Neuts % (Manual) Baso # (Auto) Lymphocytes % (Manual) Monocytes % (Manual) Eosinophils % (Manual) Basophils % (Manual) Seg Neutrophils # Seg Neutrophils # Man Lymphocytes # (Manual) Monocytes # (Manual) Eosinophils # (Manual) Nucleated RBC % Basophils # (Manual) PT INR APTT Heparin Anti-Xa Level ABG pH POC ABG pO2 ABG pO2 ABG HCO3 ABG O2 Saturation ABG Base Excess POC ABG pCO2 ABG Hemoglobin ABG Oxyhemoglobin ABG Sodium ABG Chloride ABG Glucose Oxyhemoglobin Sodium Potassium Chloride Carbon Dioxide BUN Creatinine Glucose POC Glucose 151 H 144 H 164 H Lactic Acid Calcium Phosphorus Magnesium AST ALT Lactate Dehydrogenase Total Bilirubin Direct Bilirubin CK-MB (CK-2) C-Reactive Protein NT-Pro-B Natriuret Pep Total Protein Albumin Arterial Blood Glucose Urine WBC (Auto) Urine Creatinine 01/31/20 01/31/20 01/31/20 05:51 11:51 18:06 WBC RBC Hgb Hct MCHC RDW MCV MCH Lymph % (Auto) [place] % (Auto) [place] # Eos # Lymph # (Auto) [place] # (Auto) Eos # (Auto) Seg Neutrophils % Seg Neuts % (Manual) Baso # (Auto) Lymphocytes % (Manual) Monocytes % (Manual) Eosinophils % (Manual) Basophils % (Manual) Seg Neutrophils # Seg Neutrophils # Man Lymphocytes # (Manual) Monocytes # (Manual) Eosinophils # (Manual) Nucleated RBC % Basophils # (Manual) PT INR APTT Heparin Anti-Xa Level ABG pH POC ABG pO2 ABG pO2 ABG HCO3 ABG O2 Saturation ABG Base Excess POC ABG pCO2 ABG Hemoglobin ABG Oxyhemoglobin ABG Sodium ABG Chloride ABG Glucose Oxyhemoglobin Sodium Potassium Chloride Carbon Dioxide BUN Creatinine Glucose POC Glucose 131 H 167 H 210 H Lactic Acid Calcium Phosphorus Magnesium AST ALT Lactate Dehydrogenase Total Bilirubin Direct Bilirubin CK-MB (CK-2) C-Reactive Protein NT-Pro-B Natriuret Pep Total Protein Albumin Arterial Blood Glucose Urine WBC (Auto) Urine Creatinine 01/31/20 01/31/20 02/01/20 19:24 Unknown 00:34 WBC RBC Hgb Hct MCHC RDW MCV MCH Lymph % (Auto) [place] % (Auto) [place] # Eos # Lymph # (Auto) [place] # (Auto) Eos # (Auto) Seg Neutrophils % Seg Neuts % (Manual) Baso # (Auto) Lymphocytes % (Manual) Monocytes % (Manual) Eosinophils % (Manual) Basophils % (Manual) Seg Neutrophils # Seg Neutrophils # Man Lymphocytes # (Manual) Monocytes # (Manual) Eosinophils # (Manual) Nucleated RBC % Basophils # (Manual) PT INR APTT Heparin Anti-Xa Level ABG pH POC ABG pO2 ABG pO2 ABG HCO3 ABG O2 Saturation ABG Base Excess POC ABG pCO2 ABG Hemoglobin ABG Oxyhemoglobin ABG Sodium ABG Chloride ABG Glucose Oxyhemoglobin Sodium Potassium Chloride 95.3 L Carbon Dioxide 33 H BUN 36 H Creatinine Glucose 187 H POC Glucose 116 H Lactic Acid Calcium Phosphorus Magnesium AST ALT Lactate Dehydrogenase Total Bilirubin Direct Bilirubin CK-MB (CK-2) C-Reactive Protein NT-Pro-B Natriuret Pep Total Protein Albumin Arterial Blood Glucose Urine WBC (Auto) Urine Creatinine 57.4 H 02/01/20 02/01/20 02/01/20 05:24 10:40 12:29 WBC RBC Hgb Hct MCHC RDW MCV MCH Lymph % (Auto) [place] % (Auto) [place] # Eos # Lymph # (Auto) [place] # (Auto) Eos # (Auto) Seg Neutrophils % Seg Neuts % (Manual) Baso # (Auto) Lymphocytes % (Manual) Monocytes % (Manual) Eosinophils % (Manual) Basophils % (Manual) Seg Neutrophils # Seg Neutrophils # Man Lymphocytes # (Manual) Monocytes # (Manual) Eosinophils # (Manual) Nucleated RBC % Basophils # (Manual) PT INR APTT Heparin Anti-Xa Level ABG pH POC ABG pO2 ABG pO2 ABG HCO3 ABG O2 Saturation ABG Base Excess POC ABG pCO2 ABG Hemoglobin ABG Oxyhemoglobin ABG Sodium ABG Chloride ABG Glucose Oxyhemoglobin Sodium Potassium Chloride Carbon Dioxide BUN Creatinine Glucose POC Glucose 142 H 165 H 151 H Lactic Acid Calcium Phosphorus Magnesium AST ALT Lactate Dehydrogenase Total Bilirubin Direct Bilirubin CK-MB (CK-2) C-Reactive Protein NT-Pro-B Natriuret Pep Total Protein Albumin Arterial Blood Glucose Urine WBC (Auto) Urine Creatinine 02/01/20 02/01/20 02/02/20 17:16 23:23 06:36 WBC RBC Hgb Hct MCHC RDW MCV MCH Lymph % (Auto) [place] % (Auto) [place] # Eos # Lymph # (Auto) [place] # (Auto) Eos # (Auto) Seg Neutrophils % Seg Neuts % (Manual) Baso # (Auto) Lymphocytes % (Manual) Monocytes % (Manual) Eosinophils % (Manual) Basophils % (Manual) Seg Neutrophils # Seg Neutrophils # Man Lymphocytes # (Manual) Monocytes # (Manual) Eosinophils # (Manual) Nucleated RBC % Basophils # (Manual) PT INR APTT Heparin Anti-Xa Level ABG pH POC ABG pO2 ABG pO2 ABG HCO3 ABG O2 Saturation ABG Base Excess POC ABG pCO2 ABG Hemoglobin ABG Oxyhemoglobin ABG Sodium ABG Chloride ABG Glucose Oxyhemoglobin Sodium Potassium Chloride Carbon Dioxide BUN Creatinine Glucose POC Glucose 137 H 145 H 181 H Lactic Acid Calcium Phosphorus Magnesium AST ALT Lactate Dehydrogenase Total Bilirubin Direct Bilirubin CK-MB (CK-2) C-Reactive Protein NT-Pro-B Natriuret Pep Total Protein Albumin Arterial Blood Glucose Urine WBC (Auto) Urine Creatinine 02/02/20 02/02/20 02/02/20 10:01 12:05 17:54 WBC RBC Hgb Hct MCHC RDW MCV MCH Lymph % (Auto) [place] % (Auto) [place] # Eos # Lymph # (Auto) [place] # (Auto) Eos # (Auto) Seg Neutrophils % Seg Neuts % (Manual) Baso # (Auto) Lymphocytes % (Manual) Monocytes % (Manual) Eosinophils % (Manual) Basophils % (Manual) Seg Neutrophils # Seg Neutrophils # Man Lymphocytes # (Manual) Monocytes # (Manual) Eosinophils # (Manual) Nucleated RBC % Basophils # (Manual) PT INR APTT Heparin Anti-Xa Level ABG pH POC ABG pO2 ABG pO2 ABG HCO3 ABG O2 Saturation ABG Base Excess POC ABG pCO2 ABG Hemoglobin ABG Oxyhemoglobin ABG Sodium ABG Chloride ABG Glucose Oxyhemoglobin Sodium Potassium Chloride 95.3 L Carbon Dioxide BUN 44 H Creatinine Glucose 234 H POC Glucose 184 H 127 H Lactic Acid Calcium Phosphorus Magnesium AST 363 H ALT 457 H Lactate Dehydrogenase Total Bilirubin Direct Bilirubin CK-MB (CK-2) C-Reactive Protein NT-Pro-B Natriuret Pep Total Protein Albumin 3.0 L Arterial Blood Glucose Urine WBC (Auto) Urine Creatinine 02/02/20 02/03/20 02/03/20 23:47 05:32 07:04 WBC 13.0 H RBC Hgb 9.5 L Hct 30.8 L MCHC 31 L RDW 19.6 H MCV 81 L MCH 25 L Lymph % (Auto) [place] % (Auto) 9.4 H [place] # Eos # Lymph # (Auto) [place] # (Auto) 1.2 H Eos # (Auto) Seg Neutrophils % 72.3 H Seg Neuts % (Manual) Baso # (Auto) Lymphocytes % (Manual) Monocytes % (Manual) Eosinophils % (Manual) Basophils % (Manual) Seg Neutrophils # 9.4 H Seg Neutrophils # Man Lymphocytes # (Manual) Monocytes # (Manual) Eosinophils # (Manual) Nucleated RBC % Basophils # (Manual) PT INR APTT Heparin Anti-Xa Level ABG pH POC ABG pO2 ABG pO2 ABG HCO3 ABG O2 Saturation ABG Base Excess POC ABG pCO2 ABG Hemoglobin ABG Oxyhemoglobin ABG Sodium ABG Chloride ABG Glucose Oxyhemoglobin Sodium Potassium Chloride Carbon Dioxide BUN Creatinine Glucose POC Glucose 124 H 129 H Lactic Acid Calcium Phosphorus Magnesium AST ALT Lactate Dehydrogenase Total Bilirubin Direct Bilirubin CK-MB (CK-2) C-Reactive Protein NT-Pro-B Natriuret Pep Total Protein Albumin Arterial Blood Glucose Urine WBC (Auto) Urine Creatinine 02/03/20 02/03/20 02/03/20 07:04 11:32 12:49 WBC RBC Hgb Hct MCHC RDW MCV MCH Lymph % (Auto) [place] % (Auto) [place] # Eos # Lymph # (Auto) [place] # (Auto) Eos # (Auto) Seg Neutrophils % Seg Neuts % (Manual) Baso # (Auto) Lymphocytes % (Manual) Monocytes % (Manual) Eosinophils % (Manual) Basophils % (Manual) Seg Neutrophils # Seg Neutrophils # Man Lymphocytes # (Manual) Monocytes # (Manual) Eosinophils # (Manual) Nucleated RBC % Basophils # (Manual) PT INR APTT Heparin Anti-Xa Level ABG pH POC ABG pO2 ABG pO2 ABG HCO3 ABG O2 Saturation ABG Base Excess POC ABG pCO2 ABG Hemoglobin ABG Oxyhemoglobin ABG Sodium ABG Chloride ABG Glucose Oxyhemoglobin Sodium Potassium Chloride 97.9 L Carbon Dioxide 33 H BUN 39 H Creatinine Glucose 119 H POC Glucose 138 H Lactic Acid Calcium Phosphorus Magnesium 2.60 H AST ALT Lactate Dehydrogenase Total Bilirubin Direct Bilirubin CK-MB (CK-2) C-Reactive Protein NT-Pro-B Natriuret Pep Total Protein Albumin Arterial Blood Glucose Urine WBC (Auto) Urine Creatinine 02/03/20 02/04/20 02/04/20 18:28 16:24 16:24 WBC RBC 3.38 L Hgb 8.6 L Hct 26.9 L MCHC RDW 19.5 H MCV 80 L MCH 26 L Lymph % (Auto) [place] % (Auto) [place] # Eos # Lymph # (Auto) [place] # (Auto) Eos # (Auto) Seg Neutrophils % Seg Neuts % (Manual) Baso # (Auto) Lymphocytes % (Manual) Monocytes % (Manual) Eosinophils % (Manual) Basophils % (Manual) Seg Neutrophils # Seg Neutrophils # Man Lymphocytes # (Manual) Monocytes # (Manual) Eosinophils # (Manual) Nucleated RBC % Basophils # (Manual) PT INR APTT Heparin Anti-Xa Level ABG pH POC ABG pO2 ABG pO2 ABG HCO3 ABG O2 Saturation ABG Base Excess POC ABG pCO2 ABG Hemoglobin ABG Oxyhemoglobin ABG Sodium ABG Chloride ABG Glucose Oxyhemoglobin Sodium Potassium 3.4 L Chloride Carbon Dioxide 31 H BUN 37 H Creatinine Glucose 70 L POC Glucose 118 H Lactic Acid Calcium Phosphorus Magnesium AST 169 H ALT 394 H Lactate Dehydrogenase Total Bilirubin 1.50 H Direct Bilirubin CK-MB (CK-2) C-Reactive Protein NT-Pro-B Natriuret Pep Total Protein Albumin 2.9 L Arterial Blood Glucose Urine WBC (Auto) Urine Creatinine 02/05/20 02/05/20 02/05/20 00:41 06:37 17:14 WBC RBC Hgb Hct MCHC RDW MCV MCH Lymph % (Auto) [place] % (Auto) [place] # Eos # Lymph # (Auto) [place] # (Auto) Eos # (Auto) Seg Neutrophils % Seg Neuts % (Manual) Baso # (Auto) Lymphocytes % (Manual) Monocytes % (Manual) Eosinophils % (Manual) Basophils % (Manual) Seg Neutrophils # Seg Neutrophils # Man Lymphocytes # (Manual) Monocytes # (Manual) Eosinophils # (Manual) Nucleated RBC % Basophils # (Manual) PT INR APTT Heparin Anti-Xa Level ABG pH POC ABG pO2 ABG pO2 ABG HCO3 ABG O2 Saturation ABG Base Excess POC ABG pCO2 ABG Hemoglobin ABG Oxyhemoglobin ABG Sodium ABG Chloride ABG Glucose Oxyhemoglobin Sodium Potassium 3.1 L Chloride Carbon Dioxide 35 H BUN 32 H Creatinine 0.7 L Glucose POC Glucose 69 L 127 H Lactic Acid Calcium Phosphorus Magnesium AST 134 H ALT 352 H Lactate Dehydrogenase Total Bilirubin 1.60 H Direct Bilirubin CK-MB (CK-2) C-Reactive Protein NT-Pro-B Natriuret Pep Total Protein Albumin 2.9 L Arterial Blood Glucose Urine WBC (Auto) Urine Creatinine 02/05/20 02/06/20 02/06/20 23:43 05:32 08:01 WBC RBC Hgb Hct MCHC RDW MCV MCH Lymph % (Auto) [place] % (Auto) [place] # Eos # Lymph # (Auto) [place] # (Auto) Eos # (Auto) Seg Neutrophils % Seg Neuts % (Manual) Baso # (Auto) Lymphocytes % (Manual) Monocytes % (Manual) Eosinophils % (Manual) Basophils % (Manual) Seg Neutrophils # Seg Neutrophils # Man Lymphocytes # (Manual) Monocytes # (Manual) Eosinophils # (Manual) Nucleated RBC % Basophils # (Manual) PT INR APTT Heparin Anti-Xa Level ABG pH POC ABG pO2 ABG pO2 ABG HCO3 ABG O2 Saturation ABG Base Excess POC ABG pCO2 ABG Hemoglobin ABG Oxyhemoglobin ABG Sodium ABG Chloride ABG Glucose Oxyhemoglobin Sodium Potassium Chloride Carbon Dioxide BUN 40 H Creatinine Glucose 132 H POC Glucose 129 H 131 H Lactic Acid Calcium Phosphorus Magnesium AST ALT Lactate Dehydrogenase Total Bilirubin Direct Bilirubin CK-MB (CK-2) C-Reactive Protein NT-Pro-B Natriuret Pep Total Protein Albumin Arterial Blood Glucose Urine WBC (Auto) Urine Creatinine 02/06/20 02/06/20 02/06/20 11:51 16:28 17:32 WBC RBC Hgb Hct MCHC RDW MCV MCH Lymph % (Auto) [place] % (Auto) [place] # Eos # Lymph # (Auto) [place] # (Auto) Eos # (Auto) Seg Neutrophils % Seg Neuts % (Manual) Baso # (Auto) Lymphocytes % (Manual) Monocytes % (Manual) Eosinophils % (Manual) Basophils % (Manual) Seg Neutrophils # Seg Neutrophils # Man Lymphocytes # (Manual) Monocytes # (Manual) Eosinophils # (Manual) Nucleated RBC % Basophils # (Manual) PT INR APTT Heparin Anti-Xa Level ABG pH POC ABG pO2 ABG pO2 ABG HCO3 ABG O2 Saturation ABG Base Excess POC ABG pCO2 ABG Hemoglobin ABG Oxyhemoglobin ABG Sodium ABG Chloride ABG Glucose Oxyhemoglobin Sodium Potassium Chloride Carbon Dioxide BUN Creatinine Glucose POC Glucose 167 H 129 H Lactic Acid Calcium Phosphorus Magnesium AST 824 H ALT 948 H Lactate Dehydrogenase Total Bilirubin 1.70 H Direct Bilirubin 1.2 H CK-MB (CK-2) C-Reactive Protein NT-Pro-B Natriuret Pep Total Protein Albumin 2.9 L Arterial Blood Glucose Urine WBC (Auto) Urine Creatinine 02/07/20 02/07/20 02/07/20 00:11 04:57 04:57 WBC RBC Hgb 9.2 L Hct 29.7 L MCHC 31 L RDW 20.2 H MCV 80 L MCH 25 L Lymph % (Auto) [place] % (Auto) [place] # Eos # Lymph # (Auto) [place] # (Auto) Eos # (Auto) Seg Neutrophils % Seg Neuts % (Manual) Baso # (Auto) Lymphocytes % (Manual) Monocytes % (Manual) Eosinophils % (Manual) Basophils % (Manual) Seg Neutrophils # Seg Neutrophils # Man Lymphocytes # (Manual) Monocytes # (Manual) Eosinophils # (Manual) Nucleated RBC % Basophils # (Manual) PT INR APTT Heparin Anti-Xa Level ABG pH POC ABG pO2 ABG pO2 ABG HCO3 ABG O2 Saturation ABG Base Excess POC ABG pCO2 ABG Hemoglobin ABG Oxyhemoglobin ABG Sodium ABG Chloride ABG Glucose Oxyhemoglobin Sodium Potassium 3.4 L D Chloride Carbon Dioxide 32 H BUN 39 H Creatinine Glucose 106 H POC Glucose 121 H Lactic Acid Calcium Phosphorus Magnesium AST ALT Lactate Dehydrogenase Total Bilirubin Direct Bilirubin CK-MB (CK-2) C-Reactive Protein NT-Pro-B Natriuret Pep Total Protein Albumin Arterial Blood Glucose Urine WBC (Auto) Urine Creatinine 02/07/20 02/07/20 02/07/20 15:03 15:03 17:11 WBC RBC Hgb Hct MCHC RDW MCV MCH Lymph % (Auto) [place] % (Auto) [place] # Eos # Lymph # (Auto) [place] # (Auto) Eos # (Auto) Seg Neutrophils % Seg Neuts % (Manual) Baso # (Auto) Lymphocytes % (Manual) Monocytes % (Manual) Eosinophils % (Manual) Basophils % (Manual) Seg Neutrophils # Seg Neutrophils # Man Lymphocytes # (Manual) Monocytes # (Manual) Eosinophils # (Manual) Nucleated RBC % Basophils # (Manual) PT 27.0 H INR 2.46 H APTT Heparin Anti-Xa Level ABG pH POC ABG pO2 ABG pO2 ABG HCO3 ABG O2 Saturation ABG Base Excess POC ABG pCO2 ABG Hemoglobin ABG Oxyhemoglobin ABG Sodium ABG Chloride ABG Glucose Oxyhemoglobin Sodium Potassium Chloride Carbon Dioxide BUN Creatinine Glucose POC Glucose 109 H Lactic Acid Calcium Phosphorus Magnesium AST 424 H ALT 796 H Lactate Dehydrogenase Total Bilirubin 1.60 H Direct Bilirubin 1.2 H CK-MB (CK-2) C-Reactive Protein NT-Pro-B Natriuret Pep Total Protein Albumin 2.9 L Arterial Blood Glucose Urine WBC (Auto) Urine Creatinine 02/08/20 02/08/20 02/08/20 12:14 17:44 19:00 WBC RBC Hgb Hct MCHC RDW MCV MCH Lymph % (Auto) [place] % (Auto) [place] # Eos # Lymph # (Auto) [place] # (Auto) Eos # (Auto) Seg Neutrophils % Seg Neuts % (Manual) Baso # (Auto) Lymphocytes % (Manual) Monocytes % (Manual) Eosinophils % (Manual) Basophils % (Manual) Seg Neutrophils # Seg Neutrophils # Man Lymphocytes # (Manual) Monocytes # (Manual) Eosinophils # (Manual) Nucleated RBC % Basophils # (Manual) PT INR APTT Heparin Anti-Xa Level ABG pH POC ABG pO2 ABG pO2 ABG HCO3 ABG O2 Saturation ABG Base Excess POC ABG pCO2 ABG Hemoglobin ABG Oxyhemoglobin ABG Sodium ABG Chloride ABG Glucose Oxyhemoglobin Sodium Potassium Chloride Carbon Dioxide BUN Creatinine Glucose POC Glucose 111 H 107 H Lactic Acid Calcium Phosphorus Magnesium AST 309 H ALT 650 H Lactate Dehydrogenase Total Bilirubin 1.30 H Direct Bilirubin 0.9 H CK-MB (CK-2) C-Reactive Protein NT-Pro-B Natriuret Pep Total Protein 6.2 L Albumin 2.7 L Arterial Blood Glucose Urine WBC (Auto) Urine Creatinine 02/09/20 02/09/20 02/09/20 05:41 12:28 18:07 WBC RBC Hgb Hct MCHC RDW MCV MCH Lymph % (Auto) [place] % (Auto) [place] # Eos # Lymph # (Auto) [place] # (Auto) Eos # (Auto) Seg Neutrophils % Seg Neuts % (Manual) Baso # (Auto) Lymphocytes % (Manual) Monocytes % (Manual) Eosinophils % (Manual) Basophils % (Manual) Seg Neutrophils # Seg Neutrophils # Man Lymphocytes # (Manual) Monocytes # (Manual) Eosinophils # (Manual) Nucleated RBC % Basophils # (Manual) PT INR APTT Heparin Anti-Xa Level ABG pH POC ABG pO2 ABG pO2 ABG HCO3 ABG O2 Saturation ABG Base Excess POC ABG pCO2 ABG Hemoglobin ABG Oxyhemoglobin ABG Sodium ABG Chloride ABG Glucose Oxyhemoglobin Sodium Potassium Chloride Carbon Dioxide BUN Creatinine Glucose POC Glucose 113 H 140 H 143 H Lactic Acid Calcium Phosphorus Magnesium AST ALT Lactate Dehydrogenase Total Bilirubin Direct Bilirubin CK-MB (CK-2) C-Reactive Protein NT-Pro-B Natriuret Pep Total Protein Albumin Arterial Blood Glucose Urine WBC (Auto) Urine Creatinine 02/09/20 02/09/20 02/10/20 21:40 23:45 06:00 WBC RBC Hgb Hct MCHC RDW MCV MCH Lymph % (Auto) [place] % (Auto) [place] # Eos # Lymph # (Auto) [place] # (Auto) Eos # (Auto) Seg Neutrophils % Seg Neuts % (Manual) Baso # (Auto) Lymphocytes % (Manual) Monocytes % (Manual) Eosinophils % (Manual) Basophils % (Manual) Seg Neutrophils # Seg Neutrophils # Man Lymphocytes # (Manual) Monocytes # (Manual) Eosinophils # (Manual) Nucleated RBC % Basophils # (Manual) PT INR APTT Heparin Anti-Xa Level ABG pH POC ABG pO2 ABG pO2 59.8 L ABG HCO3 33.3 H ABG O2 Saturation 88.9 L ABG Base Excess 7.4 H POC ABG pCO2 ABG Hemoglobin 10.4 L ABG Oxyhemoglobin ABG Sodium ABG Chloride ABG Glucose Oxyhemoglobin 86.3 L Sodium Potassium Chloride Carbon Dioxide BUN Creatinine Glucose POC Glucose 127 H 114 H Lactic Acid Calcium Phosphorus Magnesium AST ALT Lactate Dehydrogenase Total Bilirubin Direct Bilirubin CK-MB (CK-2) C-Reactive Protein NT-Pro-B Natriuret Pep Total Protein Albumin Arterial Blood Glucose Urine WBC (Auto) Urine Creatinine 02/10/20 02/10/20 02/10/20 07:40 07:40 13:38 WBC 11.5 H RBC Hgb 10.6 L Hct 34.7 L MCHC 31 L RDW 19.8 H MCV 79 L MCH 24 L Lymph % (Auto) [place] % (Auto) 9.2 H [place] # Eos # Lymph # (Auto) [place] # (Auto) 1.1 H Eos # (Auto) Seg Neutrophils % Seg Neuts % (Manual) Baso # (Auto) Lymphocytes % (Manual) Monocytes % (Manual) Eosinophils % (Manual) Basophils % (Manual) Seg Neutrophils # Seg Neutrophils # Man Lymphocytes # (Manual) Monocytes # (Manual) Eosinophils # (Manual) Nucleated RBC % Basophils # (Manual) PT INR APTT Heparin Anti-Xa Level ABG pH POC ABG pO2 ABG pO2 ABG HCO3 ABG O2 Saturation ABG Base Excess POC ABG pCO2 ABG Hemoglobin ABG Oxyhemoglobin ABG Sodium ABG Chloride ABG Glucose Oxyhemoglobin Sodium 151 H Potassium Chloride 107.2 H Carbon Dioxide 36 H BUN 25 H Creatinine 0.7 L Glucose 114 H POC Glucose 116 H Lactic Acid Calcium Phosphorus Magnesium 2.40 H AST ALT Lactate Dehydrogenase Total Bilirubin Direct Bilirubin CK-MB (CK-2) C-Reactive Protein NT-Pro-B Natriuret Pep Total Protein Albumin Arterial Blood Glucose Urine WBC (Auto) Urine Creatinine 02/10/20 02/11/20 02/11/20 17:44 05:47 12:21 WBC RBC Hgb Hct MCHC RDW MCV MCH Lymph % (Auto) [place] % (Auto) [place] # Eos # Lymph # (Auto) [place] # (Auto) Eos # (Auto) Seg Neutrophils % Seg Neuts % (Manual) Baso # (Auto) Lymphocytes % (Manual) Monocytes % (Manual) Eosinophils % (Manual) Basophils % (Manual) Seg Neutrophils # Seg Neutrophils # Man Lymphocytes # (Manual) Monocytes # (Manual) Eosinophils # (Manual) Nucleated RBC % Basophils # (Manual) PT INR APTT Heparin Anti-Xa Level ABG pH POC ABG pO2 ABG pO2 ABG HCO3 ABG O2 Saturation ABG Base Excess POC ABG pCO2 ABG Hemoglobin ABG Oxyhemoglobin ABG Sodium ABG Chloride ABG Glucose Oxyhemoglobin Sodium Potassium Chloride Carbon Dioxide BUN Creatinine Glucose POC Glucose 139 H 173 H 143 H Lactic Acid Calcium Phosphorus Magnesium AST ALT Lactate Dehydrogenase Total Bilirubin Direct Bilirubin CK-MB (CK-2) C-Reactive Protein NT-Pro-B Natriuret Pep Total Protein Albumin Arterial Blood Glucose Urine WBC (Auto) Urine Creatinine 02/11/20 02/11/20 02/12/20 13:43 14:11 00:15 WBC RBC Hgb Hct MCHC RDW MCV MCH Lymph % (Auto) [place] % (Auto) [place] # Eos # Lymph # (Auto) [place] # (Auto) Eos # (Auto) Seg Neutrophils % Seg Neuts % (Manual) Baso # (Auto) Lymphocytes % (Manual) Monocytes % (Manual) Eosinophils % (Manual) Basophils % (Manual) Seg Neutrophils # Seg Neutrophils # Man Lymphocytes # (Manual) Monocytes # (Manual) Eosinophils # (Manual) Nucleated RBC % Basophils # (Manual) PT INR APTT Heparin Anti-Xa Level ABG pH 7.502 H POC ABG pO2 77.7 L ABG pO2 ABG HCO3 ABG O2 Saturation ABG Base Excess POC ABG pCO2 ABG Hemoglobin 11.1 L ABG Oxyhemoglobin ABG Sodium ABG Chloride 108.0 H ABG Glucose 151 H Oxyhemoglobin Sodium Potassium Chloride Carbon Dioxide BUN Creatinine Glucose POC Glucose 130 H 125 H Lactic Acid Calcium Phosphorus Magnesium AST ALT Lactate Dehydrogenase Total Bilirubin Direct Bilirubin CK-MB (CK-2) C-Reactive Protein NT-Pro-B Natriuret Pep Total Protein Albumin Arterial Blood Glucose 151 H Urine WBC (Auto) Urine Creatinine 02/12/20 02/12/20 02/12/20 04:56 04:56 17:42 WBC RBC Hgb 9.9 L Hct 31.8 L MCHC 31 L RDW 19.4 H MCV 79 L MCH 25 L Lymph % (Auto) [place] % (Auto) 10.3 H [place] # Eos # Lymph # (Auto) [place] # (Auto) 1.0 H Eos # (Auto) Seg Neutrophils % Seg Neuts % (Manual) Baso # (Auto) Lymphocytes % (Manual) Monocytes % (Manual) Eosinophils % (Manual) Basophils % (Manual) Seg Neutrophils # Seg Neutrophils # Man Lymphocytes # (Manual) Monocytes # (Manual) Eosinophils # (Manual) Nucleated RBC % Basophils # (Manual) PT INR APTT Heparin Anti-Xa Level ABG pH POC ABG pO2 ABG pO2 ABG HCO3 ABG O2 Saturation ABG Base Excess POC ABG pCO2 ABG Hemoglobin ABG Oxyhemoglobin ABG Sodium ABG Chloride ABG Glucose Oxyhemoglobin Sodium 149 H Potassium Chloride 108.6 H Carbon Dioxide BUN 28 H Creatinine 0.7 L Glucose 108 H POC Glucose 113 H Lactic Acid Calcium Phosphorus Magnesium AST ALT Lactate Dehydrogenase Total Bilirubin Direct Bilirubin CK-MB (CK-2) C-Reactive Protein NT-Pro-B Natriuret Pep Total Protein Albumin Arterial Blood Glucose Urine WBC (Auto) Urine Creatinine 02/13/20 02/13/20 02/13/20 00:39 05:36 12:25 WBC RBC Hgb Hct MCHC RDW MCV MCH Lymph % (Auto) [place] % (Auto) [place] # Eos # Lymph # (Auto) [place] # (Auto) Eos # (Auto) Seg Neutrophils % Seg Neuts % (Manual) Baso # (Auto) Lymphocytes % (Manual) Monocytes % (Manual) Eosinophils % (Manual) Basophils % (Manual) Seg Neutrophils # Seg Neutrophils # Man Lymphocytes # (Manual) Monocytes # (Manual) Eosinophils # (Manual) Nucleated RBC % Basophils # (Manual) PT INR APTT Heparin Anti-Xa Level ABG pH POC ABG pO2 ABG pO2 ABG HCO3 ABG O2 Saturation ABG Base Excess POC ABG pCO2 ABG Hemoglobin ABG Oxyhemoglobin ABG Sodium ABG Chloride ABG Glucose Oxyhemoglobin Sodium Potassium Chloride Carbon Dioxide BUN Creatinine Glucose POC Glucose 129 H 126 H 129 H Lactic Acid Calcium Phosphorus Magnesium AST ALT Lactate Dehydrogenase Total Bilirubin Direct Bilirubin CK-MB (CK-2) C-Reactive Protein NT-Pro-B Natriuret Pep Total Protein Albumin Arterial Blood Glucose Urine WBC (Auto) Urine Creatinine 02/13/20 02/14/20 02/14/20 17:59 00:15 05:41 WBC RBC Hgb Hct MCHC RDW MCV MCH Lymph % (Auto) [place] % (Auto) [place] # Eos # Lymph # (Auto) [place] # (Auto) Eos # (Auto) Seg Neutrophils % Seg Neuts % (Manual) Baso # (Auto) Lymphocytes % (Manual) Monocytes % (Manual) Eosinophils % (Manual) Basophils % (Manual) Seg Neutrophils # Seg Neutrophils # Man Lymphocytes # (Manual) Monocytes # (Manual) Eosinophils # (Manual) Nucleated RBC % Basophils # (Manual) PT INR APTT Heparin Anti-Xa Level ABG pH POC ABG pO2 ABG pO2 ABG HCO3 ABG O2 Saturation ABG Base Excess POC ABG pCO2 ABG Hemoglobin ABG Oxyhemoglobin ABG Sodium ABG Chloride ABG Glucose Oxyhemoglobin Sodium Potassium Chloride Carbon Dioxide BUN Creatinine Glucose POC Glucose 153 H 130 H 130 H Lactic Acid Calcium Phosphorus Magnesium AST ALT Lactate Dehydrogenase Total Bilirubin Direct Bilirubin CK-MB (CK-2) C-Reactive Protein NT-Pro-B Natriuret Pep Total Protein Albumin Arterial Blood Glucose Urine WBC (Auto) Urine Creatinine 02/14/20 02/15/20 02/15/20 11:32 00:12 05:27 WBC RBC Hgb Hct MCHC RDW MCV MCH Lymph % (Auto) [place] % (Auto) [place] # Eos # Lymph # (Auto) [place] # (Auto) Eos # (Auto) Seg Neutrophils % Seg Neuts % (Manual) Baso # (Auto) Lymphocytes % (Manual) Monocytes % (Manual) Eosinophils % (Manual) Basophils % (Manual) Seg Neutrophils # Seg Neutrophils # Man Lymphocytes # (Manual) Monocytes # (Manual) Eosinophils # (Manual) Nucleated RBC % Basophils # (Manual) PT INR APTT Heparin Anti-Xa Level ABG pH POC ABG pO2 ABG pO2 ABG HCO3 ABG O2 Saturation ABG Base Excess POC ABG pCO2 ABG Hemoglobin ABG Oxyhemoglobin ABG Sodium ABG Chloride ABG Glucose Oxyhemoglobin Sodium Potassium Chloride Carbon Dioxide BUN Creatinine Glucose POC Glucose 157 H 124 H 111 H Lactic Acid Calcium Phosphorus Magnesium AST ALT Lactate Dehydrogenase Total Bilirubin Direct Bilirubin CK-MB (CK-2) C-Reactive Protein NT-Pro-B Natriuret Pep Total Protein Albumin Arterial Blood Glucose Urine WBC (Auto) Urine Creatinine 02/15/20 02/15/20 02/15/20 06:59 06:59 11:14 WBC RBC Hgb 10.4 L Hct 33.7 L MCHC 31 L RDW 19.4 H MCV 80 L MCH 24 L Lymph % (Auto) [place] % (Auto) [place] # Eos # Lymph # (Auto) [place] # (Auto) Eos # (Auto) Seg Neutrophils % Seg Neuts % (Manual) Baso # (Auto) Lymphocytes % (Manual) Monocytes % (Manual) Eosinophils % (Manual) Basophils % (Manual) 2.0 H Seg Neutrophils # Seg Neutrophils # Man Lymphocytes # (Manual) Monocytes # (Manual) Eosinophils # (Manual) Nucleated RBC % 1.0 H Basophils # (Manual) 0.2 H PT INR APTT Heparin Anti-Xa Level ABG pH POC ABG pO2 ABG pO2 ABG HCO3 ABG O2 Saturation ABG Base Excess POC ABG pCO2 ABG Hemoglobin ABG Oxyhemoglobin ABG Sodium ABG Chloride ABG Glucose Oxyhemoglobin Sodium 149 H Potassium Chloride 108.4 H Carbon Dioxide 31 H BUN 40 H Creatinine 0.7 L Glucose 150 H POC Glucose 128 H Lactic Acid Calcium Phosphorus Magnesium AST ALT Lactate Dehydrogenase Total Bilirubin Direct Bilirubin CK-MB (CK-2) C-Reactive Protein NT-Pro-B Natriuret Pep Total Protein Albumin Arterial Blood Glucose Urine WBC (Auto) Urine Creatinine 02/15/20 02/15/20 02/16/20 17:46 23:50 05:03 WBC RBC Hgb Hct MCHC RDW MCV MCH Lymph % (Auto) [place] % (Auto) [place] # Eos # Lymph # (Auto) [place] # (Auto) Eos # (Auto) Seg Neutrophils % Seg Neuts % (Manual) Baso # (Auto) Lymphocytes % (Manual) Monocytes % (Manual) Eosinophils % (Manual) Basophils % (Manual) Seg Neutrophils # Seg Neutrophils # Man Lymphocytes # (Manual) Monocytes # (Manual) Eosinophils # (Manual) Nucleated RBC % Basophils # (Manual) PT INR APTT Heparin Anti-Xa Level ABG pH POC ABG pO2 ABG pO2 ABG HCO3 ABG O2 Saturation ABG Base Excess POC ABG pCO2 ABG Hemoglobin ABG Oxyhemoglobin ABG Sodium ABG Chloride ABG Glucose Oxyhemoglobin Sodium Potassium Chloride Carbon Dioxide BUN Creatinine Glucose POC Glucose 154 H 135 H 148 H Lactic Acid Calcium Phosphorus Magnesium AST ALT Lactate Dehydrogenase Total Bilirubin Direct Bilirubin CK-MB (CK-2) C-Reactive Protein NT-Pro-B Natriuret Pep Total Protein Albumin Arterial Blood Glucose Urine WBC (Auto) Urine Creatinine 02/16/20 02/16/20 02/16/20 07:53 11:28 17:52 WBC RBC Hgb Hct MCHC RDW MCV MCH Lymph % (Auto) [place] % (Auto) [place] # Eos # Lymph # (Auto) [place] # (Auto) Eos # (Auto) Seg Neutrophils % Seg Neuts % (Manual) Baso # (Auto) Lymphocytes % (Manual) Monocytes % (Manual) Eosinophils % (Manual) Basophils % (Manual) Seg Neutrophils # Seg Neutrophils # Man Lymphocytes # (Manual) Monocytes # (Manual) Eosinophils # (Manual) Nucleated RBC % Basophils # (Manual) PT INR APTT Heparin Anti-Xa Level ABG pH POC ABG pO2 ABG pO2 ABG HCO3 ABG O2 Saturation ABG Base Excess POC ABG pCO2 ABG Hemoglobin ABG Oxyhemoglobin ABG Sodium ABG Chloride ABG Glucose Oxyhemoglobin Sodium Potassium Chloride 107.9 H Carbon Dioxide BUN 38 H Creatinine 0.6 L Glucose 151 H POC Glucose 123 H 152 H Lactic Acid Calcium Phosphorus Magnesium AST ALT Lactate Dehydrogenase Total Bilirubin Direct Bilirubin CK-MB (CK-2) C-Reactive Protein NT-Pro-B Natriuret Pep Total Protein Albumin Arterial Blood Glucose Urine WBC (Auto) Urine Creatinine 02/16/20 02/17/20 02/17/20 23:49 06:24 11:36 WBC RBC Hgb Hct MCHC RDW MCV MCH Lymph % (Auto) [place] % (Auto) [place] # Eos # Lymph # (Auto) [place] # (Auto) Eos # (Auto) Seg Neutrophils % Seg Neuts % (Manual) Baso # (Auto) Lymphocytes % (Manual) Monocytes % (Manual) Eosinophils % (Manual) Basophils % (Manual) Seg Neutrophils # Seg Neutrophils # Man Lymphocytes # (Manual) Monocytes # (Manual) Eosinophils # (Manual) Nucleated RBC % Basophils # (Manual) PT INR APTT Heparin Anti-Xa Level ABG pH POC ABG pO2 ABG pO2 ABG HCO3 ABG O2 Saturation ABG Base Excess POC ABG pCO2 ABG Hemoglobin ABG Oxyhemoglobin ABG Sodium ABG Chloride ABG Glucose Oxyhemoglobin Sodium Potassium Chloride Carbon Dioxide BUN Creatinine Glucose POC Glucose 156 H 193 H 162 H Lactic Acid Calcium Phosphorus Magnesium AST ALT Lactate Dehydrogenase Total Bilirubin Direct Bilirubin CK-MB (CK-2) C-Reactive Protein NT-Pro-B Natriuret Pep Total Protein Albumin Arterial Blood Glucose Urine WBC (Auto) Urine Creatinine 02/17/20 02/17/20 02/18/20 17:55 23:28 05:11 WBC RBC Hgb Hct MCHC RDW MCV MCH Lymph % (Auto) [place] % (Auto) [place] # Eos # Lymph # (Auto) [place] # (Auto) Eos # (Auto) Seg Neutrophils % Seg Neuts % (Manual) Baso # (Auto) Lymphocytes % (Manual) Monocytes % (Manual) Eosinophils % (Manual) Basophils % (Manual) Seg Neutrophils # Seg Neutrophils # Man Lymphocytes # (Manual) Monocytes # (Manual) Eosinophils # (Manual) Nucleated RBC % Basophils # (Manual) PT INR APTT Heparin Anti-Xa Level ABG pH POC ABG pO2 ABG pO2 ABG HCO3 ABG O2 Saturation ABG Base Excess POC ABG pCO2 ABG Hemoglobin ABG Oxyhemoglobin ABG Sodium ABG Chloride ABG Glucose Oxyhemoglobin Sodium Potassium Chloride Carbon Dioxide BUN Creatinine Glucose POC Glucose 165 H 146 H 122 H Lactic Acid Calcium Phosphorus Magnesium AST ALT Lactate Dehydrogenase Total Bilirubin Direct Bilirubin CK-MB (CK-2) C-Reactive Protein NT-Pro-B Natriuret Pep Total Protein Albumin Arterial Blood Glucose Urine WBC (Auto) Urine Creatinine 02/18/20 02/18/20 02/19/20 12:24 17:29 00:01 WBC RBC Hgb Hct MCHC RDW MCV MCH Lymph % (Auto) [place] % (Auto) [place] # Eos # Lymph # (Auto) [place] # (Auto) Eos # (Auto) Seg Neutrophils % Seg Neuts % (Manual) Baso # (Auto) Lymphocytes % (Manual) Monocytes % (Manual) Eosinophils % (Manual) Basophils % (Manual) Seg Neutrophils # Seg Neutrophils # Man Lymphocytes # (Manual) Monocytes # (Manual) Eosinophils # (Manual) Nucleated RBC % Basophils # (Manual) PT INR APTT Heparin Anti-Xa Level ABG pH POC ABG pO2 ABG pO2 ABG HCO3 ABG O2 Saturation ABG Base Excess POC ABG pCO2 ABG Hemoglobin ABG Oxyhemoglobin ABG Sodium ABG Chloride ABG Glucose Oxyhemoglobin Sodium Potassium Chloride Carbon Dioxide BUN Creatinine Glucose POC Glucose 162 H 136 H 145 H Lactic Acid Calcium Phosphorus Magnesium AST ALT Lactate Dehydrogenase Total Bilirubin Direct Bilirubin CK-MB (CK-2) C-Reactive Protein NT-Pro-B Natriuret Pep Total Protein Albumin Arterial Blood Glucose Urine WBC (Auto) Urine Creatinine 02/19/20 02/19/20 02/19/20 05:53 11:44 17:32 WBC RBC Hgb Hct MCHC RDW MCV MCH Lymph % (Auto) [place] % (Auto) [place] # Eos # Lymph # (Auto) [place] # (Auto) Eos # (Auto) Seg Neutrophils % Seg Neuts % (Manual) Baso # (Auto) Lymphocytes % (Manual) Monocytes % (Manual) Eosinophils % (Manual) Basophils % (Manual) Seg Neutrophils # Seg Neutrophils # Man Lymphocytes # (Manual) Monocytes # (Manual) Eosinophils # (Manual) Nucleated RBC % Basophils # (Manual) PT INR APTT Heparin Anti-Xa Level ABG pH POC ABG pO2 ABG pO2 ABG HCO3 ABG O2 Saturation ABG Base Excess POC ABG pCO2 ABG Hemoglobin ABG Oxyhemoglobin ABG Sodium ABG Chloride ABG Glucose Oxyhemoglobin Sodium Potassium Chloride Carbon Dioxide BUN Creatinine Glucose POC Glucose 116 H 120 H 154 H Lactic Acid Calcium Phosphorus Magnesium AST ALT Lactate Dehydrogenase Total Bilirubin Direct Bilirubin CK-MB (CK-2) C-Reactive Protein NT-Pro-B Natriuret Pep Total Protein Albumin Arterial Blood Glucose Urine WBC (Auto) Urine Creatinine 02/19/20 02/20/20 02/20/20 23:43 00:24 00:24 WBC RBC Hgb 9.4 L Hct 30.0 L MCHC 31 L RDW 20.4 H MCV 79 L MCH 25 L Lymph % (Auto) [place] % (Auto) 8.5 H [place] # Eos # Lymph # (Auto) [place] # (Auto) Eos # (Auto) Seg Neutrophils % Seg Neuts % (Manual) Baso # (Auto) Lymphocytes % (Manual) Monocytes % (Manual) Eosinophils % (Manual) Basophils % (Manual) Seg Neutrophils # Seg Neutrophils # Man Lymphocytes # (Manual) Monocytes # (Manual) Eosinophils # (Manual) Nucleated RBC % Basophils # (Manual) PT INR APTT Heparin Anti-Xa Level ABG pH POC ABG pO2 ABG pO2 ABG HCO3 ABG O2 Saturation ABG Base Excess POC ABG pCO2 ABG Hemoglobin ABG Oxyhemoglobin ABG Sodium ABG Chloride ABG Glucose Oxyhemoglobin Sodium 147 H Potassium 3.4 L Chloride Carbon Dioxide 31 H BUN 34 H Creatinine 0.5 L Glucose 135 H POC Glucose 122 H Lactic Acid Calcium Phosphorus Magnesium AST ALT Lactate Dehydrogenase Total Bilirubin Direct Bilirubin CK-MB (CK-2) C-Reactive Protein NT-Pro-B Natriuret Pep Total Protein Albumin Arterial Blood Glucose Urine WBC (Auto) Urine Creatinine 02/20/20 02/20/20 02/20/20 06:07 06:45 12:03 WBC RBC Hgb Hct MCHC RDW MCV MCH Lymph % (Auto) [place] % (Auto) [place] # Eos # Lymph # (Auto) [place] # (Auto) Eos # (Auto) Seg Neutrophils % Seg Neuts % (Manual) Baso # (Auto) Lymphocytes % (Manual) Monocytes % (Manual) Eosinophils % (Manual) Basophils % (Manual) Seg Neutrophils # Seg Neutrophils # Man Lymphocytes # (Manual) Monocytes # (Manual) Eosinophils # (Manual) Nucleated RBC % Basophils # (Manual) PT INR APTT Heparin Anti-Xa Level ABG pH 7.461 H POC ABG pO2 ABG pO2 ABG HCO3 33.3 H ABG O2 Saturation ABG Base Excess 8.4 H POC ABG pCO2 ABG Hemoglobin 10.0 L ABG Oxyhemoglobin ABG Sodium ABG Chloride ABG Glucose Oxyhemoglobin 94.1 L Sodium Potassium Chloride Carbon Dioxide BUN Creatinine Glucose POC Glucose 109 H 128 H Lactic Acid Calcium Phosphorus Magnesium AST ALT Lactate Dehydrogenase Total Bilirubin Direct Bilirubin CK-MB (CK-2) C-Reactive Protein NT-Pro-B Natriuret Pep Total Protein Albumin Arterial Blood Glucose Urine WBC (Auto) Urine Creatinine 02/20/20 02/20/20 02/21/20 18:02 23:55 05:42 WBC RBC Hgb Hct MCHC RDW MCV MCH Lymph % (Auto) [place] % (Auto) [place] # Eos # Lymph # (Auto) [place] # (Auto) Eos # (Auto) Seg Neutrophils % Seg Neuts % (Manual) Baso # (Auto) Lymphocytes % (Manual) Monocytes % (Manual) Eosinophils % (Manual) Basophils % (Manual) Seg Neutrophils # Seg Neutrophils # Man Lymphocytes # (Manual) Monocytes # (Manual) Eosinophils # (Manual) Nucleated RBC % Basophils # (Manual) PT INR APTT Heparin Anti-Xa Level ABG pH POC ABG pO2 ABG pO2 ABG HCO3 ABG O2 Saturation ABG Base Excess POC ABG pCO2 ABG Hemoglobin ABG Oxyhemoglobin ABG Sodium ABG Chloride ABG Glucose Oxyhemoglobin Sodium Potassium Chloride Carbon Dioxide BUN Creatinine Glucose POC Glucose 118 H 125 H 127 H Lactic Acid Calcium Phosphorus Magnesium AST ALT Lactate Dehydrogenase Total Bilirubin Direct Bilirubin CK-MB (CK-2) C-Reactive Protein NT-Pro-B Natriuret Pep Total Protein Albumin Arterial Blood Glucose Urine WBC (Auto) Urine Creatinine 02/21/20 02/21/20 02/21/20 12:10 17:35 23:40 WBC RBC Hgb Hct MCHC RDW MCV MCH Lymph % (Auto) [place] % (Auto) [place] # Eos # Lymph # (Auto) [place] # (Auto) Eos # (Auto) Seg Neutrophils % Seg Neuts % (Manual) Baso # (Auto) Lymphocytes % (Manual) Monocytes % (Manual) Eosinophils % (Manual) Basophils % (Manual) Seg Neutrophils # Seg Neutrophils # Man Lymphocytes # (Manual) Monocytes # (Manual) Eosinophils # (Manual) Nucleated RBC % Basophils # (Manual) PT INR APTT Heparin Anti-Xa Level ABG pH POC ABG pO2 ABG pO2 ABG HCO3 ABG O2 Saturation ABG Base Excess POC ABG pCO2 ABG Hemoglobin ABG Oxyhemoglobin ABG Sodium ABG Chloride ABG Glucose Oxyhemoglobin Sodium Potassium Chloride Carbon Dioxide BUN Creatinine Glucose POC Glucose 128 H 113 H 125 H Lactic Acid Calcium Phosphorus Magnesium AST ALT Lactate Dehydrogenase Total Bilirubin Direct Bilirubin CK-MB (CK-2) C-Reactive Protein NT-Pro-B Natriuret Pep Total Protein Albumin Arterial Blood Glucose Urine WBC (Auto) Urine Creatinine 02/22/20 02/22/20 02/22/20 05:57 08:06 08:06 WBC RBC Hgb 10.8 L Hct 35.2 L MCHC 31 L RDW 21.8 H MCV 80 L MCH 25 L Lymph % (Auto) [place] % (Auto) [place] # Eos # Lymph # (Auto) [place] # (Auto) Eos # (Auto) Seg Neutrophils % 71.5 H Seg Neuts % (Manual) Baso # (Auto) Lymphocytes % (Manual) Monocytes % (Manual) Eosinophils % (Manual) Basophils % (Manual) Seg Neutrophils # Seg Neutrophils # Man Lymphocytes # (Manual) Monocytes # (Manual) Eosinophils # (Manual) Nucleated RBC % Basophils # (Manual) PT INR APTT Heparin Anti-Xa Level ABG pH POC ABG pO2 ABG pO2 ABG HCO3 ABG O2 Saturation ABG Base Excess POC ABG pCO2 ABG Hemoglobin ABG Oxyhemoglobin ABG Sodium ABG Chloride ABG Glucose Oxyhemoglobin Sodium 146 H Potassium Chloride Carbon Dioxide 34 H BUN 21 H Creatinine 0.4 L Glucose 149 H POC Glucose 138 H Lactic Acid Calcium Phosphorus Magnesium AST ALT Lactate Dehydrogenase Total Bilirubin Direct Bilirubin CK-MB (CK-2) C-Reactive Protein NT-Pro-B Natriuret Pep Total Protein Albumin Arterial Blood Glucose Urine WBC (Auto) Urine Creatinine 02/22/20 02/22/20 02/22/20 11:47 17:11 23:25 WBC RBC Hgb Hct MCHC RDW MCV MCH Lymph % (Auto) [place] % (Auto) [place] # Eos # Lymph # (Auto) [place] # (Auto) Eos # (Auto) Seg Neutrophils % Seg Neuts % (Manual) Baso # (Auto) Lymphocytes % (Manual) Monocytes % (Manual) Eosinophils % (Manual) Basophils % (Manual) Seg Neutrophils # Seg Neutrophils # Man Lymphocytes # (Manual) Monocytes # (Manual) Eosinophils # (Manual) Nucleated RBC % Basophils # (Manual) PT INR APTT Heparin Anti-Xa Level ABG pH POC ABG pO2 ABG pO2 ABG HCO3 ABG O2 Saturation ABG Base Excess POC ABG pCO2 ABG Hemoglobin ABG Oxyhemoglobin ABG Sodium ABG Chloride ABG Glucose Oxyhemoglobin Sodium Potassium Chloride Carbon Dioxide BUN Creatinine Glucose POC Glucose 149 H 144 H 142 H Lactic Acid Calcium Phosphorus Magnesium AST ALT Lactate Dehydrogenase Total Bilirubin Direct Bilirubin CK-MB (CK-2) C-Reactive Protein NT-Pro-B Natriuret Pep Total Protein Albumin Arterial Blood Glucose Urine WBC (Auto) Urine Creatinine 02/23/20 02/23/20 02/23/20 05:22 11:37 18:14 WBC RBC Hgb Hct MCHC RDW MCV MCH Lymph % (Auto) [place] % (Auto) [place] # Eos # Lymph # (Auto) [place] # (Auto) Eos # (Auto) Seg Neutrophils % Seg Neuts % (Manual) Baso # (Auto) Lymphocytes % (Manual) Monocytes % (Manual) Eosinophils % (Manual) Basophils % (Manual) Seg Neutrophils # Seg Neutrophils # Man Lymphocytes # (Manual) Monocytes # (Manual) Eosinophils # (Manual) Nucleated RBC % Basophils # (Manual) PT INR APTT Heparin Anti-Xa Level ABG pH POC ABG pO2 ABG pO2 ABG HCO3 ABG O2 Saturation ABG Base Excess POC ABG pCO2 ABG Hemoglobin ABG Oxyhemoglobin ABG Sodium ABG Chloride ABG Glucose Oxyhemoglobin Sodium Potassium Chloride Carbon Dioxide BUN Creatinine Glucose POC Glucose 144 H 113 H 127 H Lactic Acid Calcium Phosphorus Magnesium AST ALT Lactate Dehydrogenase Total Bilirubin Direct Bilirubin CK-MB (CK-2) C-Reactive Protein NT-Pro-B Natriuret Pep Total Protein Albumin Arterial Blood Glucose Urine WBC (Auto) Urine Creatinine 02/23/20 02/24/20 02/24/20 23:45 05:50 11:24 WBC RBC Hgb Hct MCHC RDW MCV MCH Lymph % (Auto) [place] % (Auto) [place] # Eos # Lymph # (Auto) [place] # (Auto) Eos # (Auto) Seg Neutrophils % Seg Neuts % (Manual) Baso # (Auto) Lymphocytes % (Manual) Monocytes % (Manual) Eosinophils % (Manual) Basophils % (Manual) Seg Neutrophils # Seg Neutrophils # Man Lymphocytes # (Manual) Monocytes # (Manual) Eosinophils # (Manual) Nucleated RBC % Basophils # (Manual) PT INR APTT Heparin Anti-Xa Level ABG pH POC ABG pO2 ABG pO2 ABG HCO3 ABG O2 Saturation ABG Base Excess POC ABG pCO2 ABG Hemoglobin ABG Oxyhemoglobin ABG Sodium ABG Chloride ABG Glucose Oxyhemoglobin Sodium Potassium Chloride Carbon Dioxide BUN Creatinine Glucose POC Glucose 123 H 117 H 126 H Lactic Acid Calcium Phosphorus Magnesium AST ALT Lactate Dehydrogenase Total Bilirubin Direct Bilirubin CK-MB (CK-2) C-Reactive Protein NT-Pro-B Natriuret Pep Total Protein Albumin Arterial Blood Glucose Urine WBC (Auto) Urine Creatinine 02/24/20 02/24/20 02/25/20 18:35 23:27 05:20 WBC RBC Hgb Hct MCHC RDW MCV MCH Lymph % (Auto) [place] % (Auto) [place] # Eos # Lymph # (Auto) [place] # (Auto) Eos # (Auto) Seg Neutrophils % Seg Neuts % (Manual) Baso # (Auto) Lymphocytes % (Manual) Monocytes % (Manual) Eosinophils % (Manual) Basophils % (Manual) Seg Neutrophils # Seg Neutrophils # Man Lymphocytes # (Manual) Monocytes # (Manual) Eosinophils # (Manual) Nucleated RBC % Basophils # (Manual) PT INR APTT Heparin Anti-Xa Level ABG pH POC ABG pO2 ABG pO2 ABG HCO3 ABG O2 Saturation ABG Base Excess POC ABG pCO2 ABG Hemoglobin ABG Oxyhemoglobin ABG Sodium ABG Chloride ABG Glucose Oxyhemoglobin Sodium Potassium Chloride Carbon Dioxide BUN Creatinine Glucose POC Glucose 121 H 127 H 133 H Lactic Acid Calcium Phosphorus Magnesium AST ALT Lactate Dehydrogenase Total Bilirubin Direct Bilirubin CK-MB (CK-2) C-Reactive Protein NT-Pro-B Natriuret Pep Total Protein Albumin Arterial Blood Glucose Urine WBC (Auto) Urine Creatinine 02/25/20 02/25/20 02/25/20 12:08 17:26 23:33 WBC RBC Hgb Hct MCHC RDW MCV MCH Lymph % (Auto) [place] % (Auto) [place] # Eos # Lymph # (Auto) [place] # (Auto) Eos # (Auto) Seg Neutrophils % Seg Neuts % (Manual) Baso # (Auto) Lymphocytes % (Manual) Monocytes % (Manual) Eosinophils % (Manual) Basophils % (Manual) Seg Neutrophils # Seg Neutrophils # Man Lymphocytes # (Manual) Monocytes # (Manual) Eosinophils # (Manual) Nucleated RBC % Basophils # (Manual) PT INR APTT Heparin Anti-Xa Level ABG pH POC ABG pO2 ABG pO2 ABG HCO3 ABG O2 Saturation ABG Base Excess POC ABG pCO2 ABG Hemoglobin ABG Oxyhemoglobin ABG Sodium ABG Chloride ABG Glucose Oxyhemoglobin Sodium Potassium Chloride Carbon Dioxide BUN Creatinine Glucose POC Glucose 109 H 120 H 120 H Lactic Acid Calcium Phosphorus Magnesium AST ALT Lactate Dehydrogenase Total Bilirubin Direct Bilirubin CK-MB (CK-2) C-Reactive Protein NT-Pro-B Natriuret Pep Total Protein Albumin Arterial Blood Glucose Urine WBC (Auto) Urine Creatinine 02/26/20 02/26/20 02/27/20 05:33 07:50 12:13 WBC RBC Hgb Hct MCHC RDW MCV MCH Lymph % (Auto) [place] % (Auto) [place] # Eos # Lymph # (Auto) [place] # (Auto) Eos # (Auto) Seg Neutrophils % Seg Neuts % (Manual) Baso # (Auto) Lymphocytes % (Manual) Monocytes % (Manual) Eosinophils % (Manual) Basophils % (Manual) Seg Neutrophils # Seg Neutrophils # Man Lymphocytes # (Manual) Monocytes # (Manual) Eosinophils # (Manual) Nucleated RBC % Basophils # (Manual) PT INR APTT Heparin Anti-Xa Level ABG pH POC ABG pO2 ABG pO2 ABG HCO3 ABG O2 Saturation ABG Base Excess POC ABG pCO2 ABG Hemoglobin ABG Oxyhemoglobin ABG Sodium ABG Chloride ABG Glucose Oxyhemoglobin Sodium Potassium Chloride Carbon Dioxide BUN Creatinine Glucose POC Glucose 106 H 130 H Lactic Acid Calcium Phosphorus Magnesium AST ALT Lactate Dehydrogenase Total Bilirubin Direct Bilirubin CK-MB (CK-2) C-Reactive Protein NT-Pro-B Natriuret Pep Total Protein Albumin Arterial Blood Glucose Urine WBC (Auto) > 182.0 H Urine Creatinine 02/27/20 02/27/20 02/28/20 18:20 23:33 05:01 WBC RBC Hgb Hct MCHC RDW MCV MCH Lymph % (Auto) [place] % (Auto) [place] # Eos # Lymph # (Auto) [place] # (Auto) Eos # (Auto) Seg Neutrophils % Seg Neuts % (Manual) Baso # (Auto) Lymphocytes % (Manual) Monocytes % (Manual) Eosinophils % (Manual) Basophils % (Manual) Seg Neutrophils # Seg Neutrophils # Man Lymphocytes # (Manual) Monocytes # (Manual) Eosinophils # (Manual) Nucleated RBC % Basophils # (Manual) PT INR APTT Heparin Anti-Xa Level ABG pH POC ABG pO2 ABG pO2 ABG HCO3 ABG O2 Saturation ABG Base Excess POC ABG pCO2 ABG Hemoglobin ABG Oxyhemoglobin ABG Sodium ABG Chloride ABG Glucose Oxyhemoglobin Sodium Potassium Chloride Carbon Dioxide BUN Creatinine Glucose POC Glucose 109 H 124 H 134 H Lactic Acid Calcium Phosphorus Magnesium AST ALT Lactate Dehydrogenase Total Bilirubin Direct Bilirubin CK-MB (CK-2) C-Reactive Protein NT-Pro-B Natriuret Pep Total Protein Albumin Arterial Blood Glucose Urine WBC (Auto) Urine Creatinine 02/28/20 02/28/20 02/28/20 11:54 18:16 23:03 WBC RBC Hgb Hct MCHC RDW MCV MCH Lymph % (Auto) [place] % (Auto) [place] # Eos # Lymph # (Auto) [place] # (Auto) Eos # (Auto) Seg Neutrophils % Seg Neuts % (Manual) Baso # (Auto) Lymphocytes % (Manual) Monocytes % (Manual) Eosinophils % (Manual) Basophils % (Manual) Seg Neutrophils # Seg Neutrophils # Man Lymphocytes # (Manual) Monocytes # (Manual) Eosinophils # (Manual) Nucleated RBC % Basophils # (Manual) PT INR APTT Heparin Anti-Xa Level ABG pH POC ABG pO2 ABG pO2 ABG HCO3 ABG O2 Saturation ABG Base Excess POC ABG pCO2 ABG Hemoglobin ABG Oxyhemoglobin ABG Sodium ABG Chloride ABG Glucose Oxyhemoglobin Sodium Potassium Chloride Carbon Dioxide BUN Creatinine Glucose POC Glucose 133 H 134 H 146 H Lactic Acid Calcium Phosphorus Magnesium AST ALT Lactate Dehydrogenase Total Bilirubin Direct Bilirubin CK-MB (CK-2) C-Reactive Protein NT-Pro-B Natriuret Pep Total Protein Albumin Arterial Blood Glucose Urine WBC (Auto) Urine Creatinine 02/29/20 02/29/20 02/29/20 05:24 11:34 17:12 WBC RBC Hgb Hct MCHC RDW MCV MCH Lymph % (Auto) [place] % (Auto) [place] # Eos # Lymph # (Auto) [place] # (Auto) Eos # (Auto) Seg Neutrophils % Seg Neuts % (Manual) Baso # (Auto) Lymphocytes % (Manual) Monocytes % (Manual) Eosinophils % (Manual) Basophils % (Manual) Seg Neutrophils # Seg Neutrophils # Man Lymphocytes # (Manual) Monocytes # (Manual) Eosinophils # (Manual) Nucleated RBC % Basophils # (Manual) PT INR APTT Heparin Anti-Xa Level ABG pH POC ABG pO2 ABG pO2 ABG HCO3 ABG O2 Saturation ABG Base Excess POC ABG pCO2 ABG Hemoglobin ABG Oxyhemoglobin ABG Sodium ABG Chloride ABG Glucose Oxyhemoglobin Sodium Potassium Chloride Carbon Dioxide BUN Creatinine Glucose POC Glucose 139 H 141 H 157 H Lactic Acid Calcium Phosphorus Magnesium AST ALT Lactate Dehydrogenase Total Bilirubin Direct Bilirubin CK-MB (CK-2) C-Reactive Protein NT-Pro-B Natriuret Pep Total Protein Albumin Arterial Blood Glucose Urine WBC (Auto) Urine Creatinine 02/29/20 03/01/20 03/01/20 23:35 06:00 11:53 WBC RBC Hgb Hct MCHC RDW MCV MCH Lymph % (Auto) [place] % (Auto) [place] # Eos # Lymph # (Auto) [place] # (Auto) Eos # (Auto) Seg Neutrophils % Seg Neuts % (Manual) Baso # (Auto) Lymphocytes % (Manual) Monocytes % (Manual) Eosinophils % (Manual) Basophils % (Manual) Seg Neutrophils # Seg Neutrophils # Man Lymphocytes # (Manual) Monocytes # (Manual) Eosinophils # (Manual) Nucleated RBC % Basophils # (Manual) PT INR APTT Heparin Anti-Xa Level ABG pH POC ABG pO2 ABG pO2 ABG HCO3 ABG O2 Saturation ABG Base Excess POC ABG pCO2 ABG Hemoglobin ABG Oxyhemoglobin ABG Sodium ABG Chloride ABG Glucose Oxyhemoglobin Sodium Potassium Chloride Carbon Dioxide BUN Creatinine Glucose POC Glucose 120 H 132 H 136 H Lactic Acid Calcium Phosphorus Magnesium AST ALT Lactate Dehydrogenase Total Bilirubin Direct Bilirubin CK-MB (CK-2) C-Reactive Protein NT-Pro-B Natriuret Pep Total Protein Albumin Arterial Blood Glucose Urine WBC (Auto) Urine Creatinine 03/01/20 03/01/20 03/02/20 17:36 23:16 05:12 WBC RBC Hgb Hct MCHC RDW MCV MCH Lymph % (Auto) [place] % (Auto) [place] # Eos # Lymph # (Auto) [place] # (Auto) Eos # (Auto) Seg Neutrophils % Seg Neuts % (Manual) Baso # (Auto) Lymphocytes % (Manual) Monocytes % (Manual) Eosinophils % (Manual) Basophils % (Manual) Seg Neutrophils # Seg Neutrophils # Man Lymphocytes # (Manual) Monocytes # (Manual) Eosinophils # (Manual) Nucleated RBC % Basophils # (Manual) PT INR APTT Heparin Anti-Xa Level ABG pH POC ABG pO2 ABG pO2 ABG HCO3 ABG O2 Saturation ABG Base Excess POC ABG pCO2 ABG Hemoglobin ABG Oxyhemoglobin ABG Sodium ABG Chloride ABG Glucose Oxyhemoglobin Sodium Potassium Chloride Carbon Dioxide BUN Creatinine Glucose POC Glucose 171 H 164 H 176 H Lactic Acid Calcium Phosphorus Magnesium AST ALT Lactate Dehydrogenase Total Bilirubin Direct Bilirubin CK-MB (CK-2) C-Reactive Protein NT-Pro-B Natriuret Pep Total Protein Albumin Arterial Blood Glucose Urine WBC (Auto) Urine Creatinine 03/02/20 03/02/20 03/03/20 11:42 18:01 00:06 WBC RBC Hgb Hct MCHC RDW MCV MCH Lymph % (Auto) [place] % (Auto) [place] # Eos # Lymph # (Auto) [place] # (Auto) Eos # (Auto) Seg Neutrophils % Seg Neuts % (Manual) Baso # (Auto) Lymphocytes % (Manual) Monocytes % (Manual) Eosinophils % (Manual) Basophils % (Manual) Seg Neutrophils # Seg Neutrophils # Man Lymphocytes # (Manual) Monocytes # (Manual) Eosinophils # (Manual) Nucleated RBC % Basophils # (Manual) PT INR APTT Heparin Anti-Xa Level ABG pH POC ABG pO2 ABG pO2 ABG HCO3 ABG O2 Saturation ABG Base Excess POC ABG pCO2 ABG Hemoglobin ABG Oxyhemoglobin ABG Sodium ABG Chloride ABG Glucose Oxyhemoglobin Sodium Potassium Chloride Carbon Dioxide BUN Creatinine Glucose POC Glucose 150 H 156 H 156 H Lactic Acid Calcium Phosphorus Magnesium AST ALT Lactate Dehydrogenase Total Bilirubin Direct Bilirubin CK-MB (CK-2) C-Reactive Protein NT-Pro-B Natriuret Pep Total Protein Albumin Arterial Blood Glucose Urine WBC (Auto) Urine Creatinine 03/03/20 03/03/20 03/03/20 03:31 11:20 16:55 WBC RBC Hgb Hct MCHC RDW MCV MCH Lymph % (Auto) [place] % (Auto) [place] # Eos # Lymph # (Auto) [place] # (Auto) Eos # (Auto) Seg Neutrophils % Seg Neuts % (Manual) Baso # (Auto) Lymphocytes % (Manual) Monocytes % (Manual) Eosinophils % (Manual) Basophils % (Manual) Seg Neutrophils # Seg Neutrophils # Man Lymphocytes # (Manual) Monocytes # (Manual) Eosinophils # (Manual) Nucleated RBC % Basophils # (Manual) PT INR APTT Heparin Anti-Xa Level ABG pH POC ABG pO2 ABG pO2 ABG HCO3 ABG O2 Saturation ABG Base Excess POC ABG pCO2 ABG Hemoglobin ABG Oxyhemoglobin ABG Sodium ABG Chloride ABG Glucose Oxyhemoglobin Sodium Potassium Chloride Carbon Dioxide BUN Creatinine Glucose POC Glucose 164 H 125 H 211 H Lactic Acid Calcium Phosphorus Magnesium AST ALT Lactate Dehydrogenase Total Bilirubin Direct Bilirubin CK-MB (CK-2) C-Reactive Protein NT-Pro-B Natriuret Pep Total Protein Albumin Arterial Blood Glucose Urine WBC (Auto) Urine Creatinine 03/04/20 03/04/20 03/04/20 00:29 05:20 12:09 WBC RBC Hgb Hct MCHC RDW MCV MCH Lymph % (Auto) [place] % (Auto) [place] # Eos # Lymph # (Auto) [place] # (Auto) Eos # (Auto) Seg Neutrophils % Seg Neuts % (Manual) Baso # (Auto) Lymphocytes % (Manual) Monocytes % (Manual) Eosinophils % (Manual) Basophils % (Manual) Seg Neutrophils # Seg Neutrophils # Man Lymphocytes # (Manual) Monocytes # (Manual) Eosinophils # (Manual) Nucleated RBC % Basophils # (Manual) PT INR APTT Heparin Anti-Xa Level ABG pH POC ABG pO2 ABG pO2 ABG HCO3 ABG O2 Saturation ABG Base Excess POC ABG pCO2 ABG Hemoglobin ABG Oxyhemoglobin ABG Sodium ABG Chloride ABG Glucose Oxyhemoglobin Sodium Potassium Chloride Carbon Dioxide BUN Creatinine Glucose POC Glucose 169 H 154 H 197 H Lactic Acid Calcium Phosphorus Magnesium AST ALT Lactate Dehydrogenase Total Bilirubin Direct Bilirubin CK-MB (CK-2) C-Reactive Protein NT-Pro-B Natriuret Pep Total Protein Albumin Arterial Blood Glucose Urine WBC (Auto) Urine Creatinine 03/04/20 03/04/20 03/04/20 18:00 20:38 20:38 WBC RBC Hgb 10.1 L Hct 32.7 L MCHC 31 L RDW 24.7 H MCV 79 L MCH 24 L Lymph % (Auto) [place] % (Auto) 8.9 H [place] # Eos # Lymph # (Auto) [place] # (Auto) Eos # (Auto) Seg Neutrophils % Seg Neuts % (Manual) Baso # (Auto) Lymphocytes % (Manual) Monocytes % (Manual) Eosinophils % (Manual) Basophils % (Manual) Seg Neutrophils # Seg Neutrophils # Man Lymphocytes # (Manual) Monocytes # (Manual) Eosinophils # (Manual) Nucleated RBC % Basophils # (Manual) PT INR APTT Heparin Anti-Xa Level ABG pH POC ABG pO2 ABG pO2 ABG HCO3 ABG O2 Saturation ABG Base Excess POC ABG pCO2 ABG Hemoglobin ABG Oxyhemoglobin ABG Sodium ABG Chloride ABG Glucose Oxyhemoglobin Sodium 136 L Potassium Chloride Carbon Dioxide BUN 25 H Creatinine 0.5 L Glucose 148 H POC Glucose 146 H Lactic Acid Calcium Phosphorus Magnesium AST ALT Lactate Dehydrogenase Total Bilirubin Direct Bilirubin CK-MB (CK-2) C-Reactive Protein NT-Pro-B Natriuret Pep Total Protein Albumin Arterial Blood Glucose Urine WBC (Auto) Urine Creatinine 03/04/20 03/05/20 03/05/20 23:17 05:44 11:32 WBC RBC Hgb Hct MCHC RDW MCV MCH Lymph % (Auto) [place] % (Auto) [place] # Eos # Lymph # (Auto) [place] # (Auto) Eos # (Auto) Seg Neutrophils % Seg Neuts % (Manual) Baso # (Auto) Lymphocytes % (Manual) Monocytes % (Manual) Eosinophils % (Manual) Basophils % (Manual) Seg Neutrophils # Seg Neutrophils # Man Lymphocytes # (Manual) Monocytes # (Manual) Eosinophils # (Manual) Nucleated RBC % Basophils # (Manual) PT INR APTT Heparin Anti-Xa Level ABG pH POC ABG pO2 ABG pO2 ABG HCO3 ABG O2 Saturation ABG Base Excess POC ABG pCO2 ABG Hemoglobin ABG Oxyhemoglobin ABG Sodium ABG Chloride ABG Glucose Oxyhemoglobin Sodium Potassium Chloride Carbon Dioxide BUN Creatinine Glucose POC Glucose 139 H 155 H 124 H Lactic Acid Calcium Phosphorus Magnesium AST ALT Lactate Dehydrogenase Total Bilirubin Direct Bilirubin CK-MB (CK-2) C-Reactive Protein NT-Pro-B Natriuret Pep Total Protein Albumin Arterial Blood Glucose Urine WBC (Auto) Urine Creatinine 03/05/20 03/05/20 03/06/20 17:45 23:18 12:16 WBC RBC Hgb Hct MCHC RDW MCV MCH Lymph % (Auto) [place] % (Auto) [place] # Eos # Lymph # (Auto) [place] # (Auto) Eos # (Auto) Seg Neutrophils % Seg Neuts % (Manual) Baso # (Auto) Lymphocytes % (Manual) Monocytes % (Manual) Eosinophils % (Manual) Basophils % (Manual) Seg Neutrophils # Seg Neutrophils # Man Lymphocytes # (Manual) Monocytes # (Manual) Eosinophils # (Manual) Nucleated RBC % Basophils # (Manual) PT INR APTT Heparin Anti-Xa Level ABG pH POC ABG pO2 ABG pO2 ABG HCO3 ABG O2 Saturation ABG Base Excess POC ABG pCO2 ABG Hemoglobin ABG Oxyhemoglobin ABG Sodium ABG Chloride ABG Glucose Oxyhemoglobin Sodium Potassium Chloride Carbon Dioxide BUN Creatinine Glucose POC Glucose 171 H 114 H 155 H Lactic Acid Calcium Phosphorus Magnesium AST ALT Lactate Dehydrogenase Total Bilirubin Direct Bilirubin CK-MB (CK-2) C-Reactive Protein NT-Pro-B Natriuret Pep Total Protein Albumin Arterial Blood Glucose Urine WBC (Auto) Urine Creatinine 03/06/20 03/06/20 03/07/20 17:27 23:48 06:02 WBC RBC Hgb Hct MCHC RDW MCV MCH Lymph % (Auto) [place] % (Auto) [place] # Eos # Lymph # (Auto) [place] # (Auto) Eos # (Auto) Seg Neutrophils % Seg Neuts % (Manual) Baso # (Auto) Lymphocytes % (Manual) Monocytes % (Manual) Eosinophils % (Manual) Basophils % (Manual) Seg Neutrophils # Seg Neutrophils # Man Lymphocytes # (Manual) Monocytes # (Manual) Eosinophils # (Manual) Nucleated RBC % Basophils # (Manual) PT INR APTT Heparin Anti-Xa Level ABG pH POC ABG pO2 ABG pO2 ABG HCO3 ABG O2 Saturation ABG Base Excess POC ABG pCO2 ABG Hemoglobin ABG Oxyhemoglobin ABG Sodium ABG Chloride ABG Glucose Oxyhemoglobin Sodium Potassium Chloride Carbon Dioxide BUN Creatinine Glucose POC Glucose 116 H 142 H 161 H Lactic Acid Calcium Phosphorus Magnesium AST ALT Lactate Dehydrogenase Total Bilirubin Direct Bilirubin CK-MB (CK-2) C-Reactive Protein NT-Pro-B Natriuret Pep Total Protein Albumin Arterial Blood Glucose Urine WBC (Auto) Urine Creatinine 03/07/20 03/08/20 03/08/20 11:36 05:18 11:51 WBC RBC Hgb Hct MCHC RDW MCV MCH Lymph % (Auto) [place] % (Auto) [place] # Eos # Lymph # (Auto) [place] # (Auto) Eos # (Auto) Seg Neutrophils % Seg Neuts % (Manual) Baso # (Auto) Lymphocytes % (Manual) Monocytes % (Manual) Eosinophils % (Manual) Basophils % (Manual) Seg Neutrophils # Seg Neutrophils # Man Lymphocytes # (Manual) Monocytes # (Manual) Eosinophils # (Manual) Nucleated RBC % Basophils # (Manual) PT INR APTT Heparin Anti-Xa Level ABG pH POC ABG pO2 ABG pO2 ABG HCO3 ABG O2 Saturation ABG Base Excess POC ABG pCO2 ABG Hemoglobin ABG Oxyhemoglobin ABG Sodium ABG Chloride ABG Glucose Oxyhemoglobin Sodium Potassium Chloride Carbon Dioxide BUN Creatinine Glucose POC Glucose 127 H 142 H 135 H Lactic Acid Calcium Phosphorus Magnesium AST ALT Lactate Dehydrogenase Total Bilirubin Direct Bilirubin CK-MB (CK-2) C-Reactive Protein NT-Pro-B Natriuret Pep Total Protein Albumin Arterial Blood Glucose Urine WBC (Auto) Urine Creatinine 03/08/20 03/08/20 03/09/20 18:14 23:45 05:36 WBC RBC Hgb Hct MCHC RDW MCV MCH Lymph % (Auto) [place] % (Auto) [place] # Eos # Lymph # (Auto) [place] # (Auto) Eos # (Auto) Seg Neutrophils % Seg Neuts % (Manual) Baso # (Auto) Lymphocytes % (Manual) Monocytes % (Manual) Eosinophils % (Manual) Basophils % (Manual) Seg Neutrophils # Seg Neutrophils # Man Lymphocytes # (Manual) Monocytes # (Manual) Eosinophils # (Manual) Nucleated RBC % Basophils # (Manual) PT INR APTT Heparin Anti-Xa Level ABG pH POC ABG pO2 ABG pO2 ABG HCO3 ABG O2 Saturation ABG Base Excess POC ABG pCO2 ABG Hemoglobin ABG Oxyhemoglobin ABG Sodium ABG Chloride ABG Glucose Oxyhemoglobin Sodium Potassium Chloride Carbon Dioxide BUN Creatinine Glucose POC Glucose 125 H 143 H 158 H Lactic Acid Calcium Phosphorus Magnesium AST ALT Lactate Dehydrogenase Total Bilirubin Direct Bilirubin CK-MB (CK-2) C-Reactive Protein NT-Pro-B Natriuret Pep Total Protein Albumin Arterial Blood Glucose Urine WBC (Auto) Urine Creatinine 03/09/20 03/09/20 03/09/20 06:32 06:32 11:34 WBC RBC Hgb 9.8 L Hct 31.6 L MCHC 31 L RDW 23.1 H MCV 80 L MCH 25 L Lymph % (Auto) 35.1 H [place] % (Auto) 11.4 H [place] # Eos # Lymph # (Auto) [place] # (Auto) Eos # (Auto) Seg Neutrophils % Seg Neuts % (Manual) Baso # (Auto) Lymphocytes % (Manual) Monocytes % (Manual) Eosinophils % (Manual) Basophils % (Manual) Seg Neutrophils # Seg Neutrophils # Man Lymphocytes # (Manual) Monocytes # (Manual) Eosinophils # (Manual) Nucleated RBC % Basophils # (Manual) PT INR APTT Heparin Anti-Xa Level ABG pH POC ABG pO2 ABG pO2 ABG HCO3 ABG O2 Saturation ABG Base Excess POC ABG pCO2 ABG Hemoglobin ABG Oxyhemoglobin ABG Sodium ABG Chloride ABG Glucose Oxyhemoglobin Sodium 136 L Potassium Chloride Carbon Dioxide BUN 25 H Creatinine 0.6 L Glucose 170 H POC Glucose 140 H Lactic Acid Calcium Phosphorus Magnesium AST ALT Lactate Dehydrogenase Total Bilirubin Direct Bilirubin CK-MB (CK-2) C-Reactive Protein NT-Pro-B Natriuret Pep Total Protein Albumin Arterial Blood Glucose Urine WBC (Auto) Urine Creatinine 03/09/20 03/09/20 03/10/20 18:10 23:11 05:41 WBC RBC Hgb Hct MCHC RDW MCV MCH Lymph % (Auto) [place] % (Auto) [place] # Eos # Lymph # (Auto) [place] # (Auto) Eos # (Auto) Seg Neutrophils % Seg Neuts % (Manual) Baso # (Auto) Lymphocytes % (Manual) Monocytes % (Manual) Eosinophils % (Manual) Basophils % (Manual) Seg Neutrophils # Seg Neutrophils # Man Lymphocytes # (Manual) Monocytes # (Manual) Eosinophils # (Manual) Nucleated RBC % Basophils # (Manual) PT INR APTT Heparin Anti-Xa Level ABG pH POC ABG pO2 ABG pO2 ABG HCO3 ABG O2 Saturation ABG Base Excess POC ABG pCO2 ABG Hemoglobin ABG Oxyhemoglobin ABG Sodium ABG Chloride ABG Glucose Oxyhemoglobin Sodium Potassium Chloride Carbon Dioxide BUN Creatinine Glucose POC Glucose 153 H 111 H 138 H Lactic Acid Calcium Phosphorus Magnesium AST ALT Lactate Dehydrogenase Total Bilirubin Direct Bilirubin CK-MB (CK-2) C-Reactive Protein NT-Pro-B Natriuret Pep Total Protein Albumin Arterial Blood Glucose Urine WBC (Auto) Urine Creatinine 03/10/20 03/10/20 03/10/20 11:15 17:58 23:36 WBC RBC Hgb Hct MCHC RDW MCV MCH Lymph % (Auto) [place] % (Auto) [place] # Eos # Lymph # (Auto) [place] # (Auto) Eos # (Auto) Seg Neutrophils % Seg Neuts % (Manual) Baso # (Auto) Lymphocytes % (Manual) Monocytes % (Manual) Eosinophils % (Manual) Basophils % (Manual) Seg Neutrophils # Seg Neutrophils # Man Lymphocytes # (Manual) Monocytes # (Manual) Eosinophils # (Manual) Nucleated RBC % Basophils # (Manual) PT INR APTT Heparin Anti-Xa Level ABG pH POC ABG pO2 ABG pO2 ABG HCO3 ABG O2 Saturation ABG Base Excess POC ABG pCO2 ABG Hemoglobin ABG Oxyhemoglobin ABG Sodium ABG Chloride ABG Glucose Oxyhemoglobin Sodium Potassium Chloride Carbon Dioxide BUN Creatinine Glucose POC Glucose 141 H 149 H 148 H Lactic Acid Calcium Phosphorus Magnesium AST ALT Lactate Dehydrogenase Total Bilirubin Direct Bilirubin CK-MB (CK-2) C-Reactive Protein NT-Pro-B Natriuret Pep Total Protein Albumin Arterial Blood Glucose Urine WBC (Auto) Urine Creatinine 03/11/20 03/11/20 03/12/20 05:55 17:43 04:45 WBC RBC Hgb Hct MCHC RDW MCV MCH Lymph % (Auto) [place] % (Auto) [place] # Eos # Lymph # (Auto) [place] # (Auto) Eos # (Auto) Seg Neutrophils % Seg Neuts % (Manual) Baso # (Auto) Lymphocytes % (Manual) Monocytes % (Manual) Eosinophils % (Manual) Basophils % (Manual) Seg Neutrophils # Seg Neutrophils # Man Lymphocytes # (Manual) Monocytes # (Manual) Eosinophils # (Manual) Nucleated RBC % Basophils # (Manual) PT INR APTT Heparin Anti-Xa Level ABG pH 7.454 H POC ABG pO2 69.2 L ABG pO2 ABG HCO3 ABG O2 Saturation ABG Base Excess POC ABG pCO2 ABG Hemoglobin 11.2 L ABG Oxyhemoglobin ABG Sodium 134.7 L ABG Chloride ABG Glucose 151 H Oxyhemoglobin Sodium Potassium Chloride Carbon Dioxide BUN Creatinine Glucose POC Glucose 181 H 107 H Lactic Acid Calcium Phosphorus Magnesium AST ALT Lactate Dehydrogenase Total Bilirubin Direct Bilirubin CK-MB (CK-2) C-Reactive Protein NT-Pro-B Natriuret Pep Total Protein Albumin Arterial Blood Glucose 151 H Urine WBC (Auto) Urine Creatinine 03/12/20 03/12/20 03/12/20 05:36 11:36 17:40 WBC RBC Hgb Hct MCHC RDW MCV MCH Lymph % (Auto) [place] % (Auto) [place] # Eos # Lymph # (Auto) [place] # (Auto) Eos # (Auto) Seg Neutrophils % Seg Neuts % (Manual) Baso # (Auto) Lymphocytes % (Manual) Monocytes % (Manual) Eosinophils % (Manual) Basophils % (Manual) Seg Neutrophils # Seg Neutrophils # Man Lymphocytes # (Manual) Monocytes # (Manual) Eosinophils # (Manual) Nucleated RBC % Basophils # (Manual) PT INR APTT Heparin Anti-Xa Level ABG pH POC ABG pO2 ABG pO2 ABG HCO3 ABG O2 Saturation ABG Base Excess POC ABG pCO2 ABG Hemoglobin ABG Oxyhemoglobin ABG Sodium ABG Chloride ABG Glucose Oxyhemoglobin Sodium Potassium Chloride Carbon Dioxide BUN Creatinine Glucose POC Glucose 137 H 122 H 116 H Lactic Acid Calcium Phosphorus Magnesium AST ALT Lactate Dehydrogenase Total Bilirubin Direct Bilirubin CK-MB (CK-2) C-Reactive Protein NT-Pro-B Natriuret Pep Total Protein Albumin Arterial Blood Glucose Urine WBC (Auto) Urine Creatinine 03/12/20 03/13/20 03/13/20 23:17 05:47 11:35 WBC RBC Hgb Hct MCHC RDW MCV MCH Lymph % (Auto) [place] % (Auto) [place] # Eos # Lymph # (Auto) [place] # (Auto) Eos # (Auto) Seg Neutrophils % Seg Neuts % (Manual) Baso # (Auto) Lymphocytes % (Manual) Monocytes % (Manual) Eosinophils % (Manual) Basophils % (Manual) Seg Neutrophils # Seg Neutrophils # Man Lymphocytes # (Manual) Monocytes # (Manual) Eosinophils # (Manual) Nucleated RBC % Basophils # (Manual) PT INR APTT Heparin Anti-Xa Level ABG pH POC ABG pO2 ABG pO2 ABG HCO3 ABG O2 Saturation ABG Base Excess POC ABG pCO2 ABG Hemoglobin ABG Oxyhemoglobin ABG Sodium ABG Chloride ABG Glucose Oxyhemoglobin Sodium Potassium Chloride Carbon Dioxide BUN Creatinine Glucose POC Glucose 118 H 142 H 146 H Lactic Acid Calcium Phosphorus Magnesium AST ALT Lactate Dehydrogenase Total Bilirubin Direct Bilirubin CK-MB (CK-2) C-Reactive Protein NT-Pro-B Natriuret Pep Total Protein Albumin Arterial Blood Glucose Urine WBC (Auto) Urine Creatinine 03/13/20 03/13/20 03/14/20 17:25 23:27 05:04 WBC RBC Hgb Hct MCHC RDW MCV MCH Lymph % (Auto) [place] % (Auto) [place] # Eos # Lymph # (Auto) [place] # (Auto) Eos # (Auto) Seg Neutrophils % Seg Neuts % (Manual) Baso # (Auto) Lymphocytes % (Manual) Monocytes % (Manual) Eosinophils % (Manual) Basophils % (Manual) Seg Neutrophils # Seg Neutrophils # Man Lymphocytes # (Manual) Monocytes # (Manual) Eosinophils # (Manual) Nucleated RBC % Basophils # (Manual) PT INR APTT Heparin Anti-Xa Level ABG pH POC ABG pO2 ABG pO2 ABG HCO3 ABG O2 Saturation ABG Base Excess POC ABG pCO2 ABG Hemoglobin ABG Oxyhemoglobin ABG Sodium ABG Chloride ABG Glucose Oxyhemoglobin Sodium Potassium Chloride Carbon Dioxide BUN Creatinine Glucose POC Glucose 138 H 160 H 159 H Lactic Acid Calcium Phosphorus Magnesium AST ALT Lactate Dehydrogenase Total Bilirubin Direct Bilirubin CK-MB (CK-2) C-Reactive Protein NT-Pro-B Natriuret Pep Total Protein Albumin Arterial Blood Glucose Urine WBC (Auto) Urine Creatinine 03/14/20 03/14/20 03/15/20 11:19 16:18 00:18 WBC RBC Hgb Hct MCHC RDW MCV MCH Lymph % (Auto) [place] % (Auto) [place] # Eos # Lymph # (Auto) [place] # (Auto) Eos # (Auto) Seg Neutrophils % Seg Neuts % (Manual) Baso # (Auto) Lymphocytes % (Manual) Monocytes % (Manual) Eosinophils % (Manual) Basophils % (Manual) Seg Neutrophils # Seg Neutrophils # Man Lymphocytes # (Manual) Monocytes # (Manual) Eosinophils # (Manual) Nucleated RBC % Basophils # (Manual) PT INR APTT Heparin Anti-Xa Level ABG pH POC ABG pO2 ABG pO2 ABG HCO3 ABG O2 Saturation ABG Base Excess POC ABG pCO2 ABG Hemoglobin ABG Oxyhemoglobin ABG Sodium ABG Chloride ABG Glucose Oxyhemoglobin Sodium Potassium Chloride Carbon Dioxide BUN Creatinine Glucose POC Glucose 130 H 170 H 125 H Lactic Acid Calcium Phosphorus Magnesium AST ALT Lactate Dehydrogenase Total Bilirubin Direct Bilirubin CK-MB (CK-2) C-Reactive Protein NT-Pro-B Natriuret Pep Total Protein Albumin Arterial Blood Glucose Urine WBC (Auto) Urine Creatinine 03/15/20 03/15/20 03/15/20 04:05 04:05 05:36 WBC RBC Hgb 10.0 L Hct 31.6 L MCHC RDW 22.4 H MCV 77 L MCH 24 L Lymph % (Auto) 36.2 H [place] % (Auto) 9.4 H [place] # Eos # Lymph # (Auto) [place] # (Auto) Eos # (Auto) Seg Neutrophils % Seg Neuts % (Manual) Baso # (Auto) Lymphocytes % (Manual) Monocytes % (Manual) Eosinophils % (Manual) Basophils % (Manual) Seg Neutrophils # Seg Neutrophils # Man Lymphocytes # (Manual) Monocytes # (Manual) Eosinophils # (Manual) Nucleated RBC % Basophils # (Manual) PT INR APTT Heparin Anti-Xa Level ABG pH POC ABG pO2 ABG pO2 ABG HCO3 ABG O2 Saturation ABG Base Excess POC ABG pCO2 ABG Hemoglobin ABG Oxyhemoglobin ABG Sodium ABG Chloride ABG Glucose Oxyhemoglobin Sodium Potassium Chloride Carbon Dioxide 32 H BUN Creatinine 0.5 L Glucose 141 H POC Glucose 130 H Lactic Acid Calcium Phosphorus Magnesium AST ALT Lactate Dehydrogenase Total Bilirubin Direct Bilirubin CK-MB (CK-2) C-Reactive Protein NT-Pro-B Natriuret Pep Total Protein Albumin Arterial Blood Glucose Urine WBC (Auto) Urine Creatinine 03/15/20 03/15/20 03/15/20 11:41 17:38 23:16 WBC RBC Hgb Hct MCHC RDW MCV MCH Lymph % (Auto) [place] % (Auto) [place] # Eos # Lymph # (Auto) [place] # (Auto) Eos # (Auto) Seg Neutrophils % Seg Neuts % (Manual) Baso # (Auto) Lymphocytes % (Manual) Monocytes % (Manual) Eosinophils % (Manual) Basophils % (Manual) Seg Neutrophils # Seg Neutrophils # Man Lymphocytes # (Manual) Monocytes # (Manual) Eosinophils # (Manual) Nucleated RBC % Basophils # (Manual) PT INR APTT Heparin Anti-Xa Level ABG pH POC ABG pO2 ABG pO2 ABG HCO3 ABG O2 Saturation ABG Base Excess POC ABG pCO2 ABG Hemoglobin ABG Oxyhemoglobin ABG Sodium ABG Chloride ABG Glucose Oxyhemoglobin Sodium Potassium Chloride Carbon Dioxide BUN Creatinine Glucose POC Glucose 114 H 144 H 116 H Lactic Acid Calcium Phosphorus Magnesium AST ALT Lactate Dehydrogenase Total Bilirubin Direct Bilirubin CK-MB (CK-2) C-Reactive Protein NT-Pro-B Natriuret Pep Total Protein Albumin Arterial Blood Glucose Urine WBC (Auto) Urine Creatinine 03/16/20 03/16/20 03/16/20 05:39 13:16 18:29 WBC RBC Hgb Hct MCHC RDW MCV MCH Lymph % (Auto) [place] % (Auto) [place] # Eos # Lymph # (Auto) [place] # (Auto) Eos # (Auto) Seg Neutrophils % Seg Neuts % (Manual) Baso # (Auto) Lymphocytes % (Manual) Monocytes % (Manual) Eosinophils % (Manual) Basophils % (Manual) Seg Neutrophils # Seg Neutrophils # Man Lymphocytes # (Manual) Monocytes # (Manual) Eosinophils # (Manual) Nucleated RBC % Basophils # (Manual) PT INR APTT Heparin Anti-Xa Level ABG pH POC ABG pO2 ABG pO2 ABG HCO3 ABG O2 Saturation ABG Base Excess POC ABG pCO2 ABG Hemoglobin ABG Oxyhemoglobin ABG Sodium ABG Chloride ABG Glucose Oxyhemoglobin Sodium Potassium Chloride Carbon Dioxide BUN Creatinine Glucose POC Glucose 125 H 153 H 135 H Lactic Acid Calcium Phosphorus Magnesium AST ALT Lactate Dehydrogenase Total Bilirubin Direct Bilirubin CK-MB (CK-2) C-Reactive Protein NT-Pro-B Natriuret Pep Total Protein Albumin Arterial Blood Glucose Urine WBC (Auto) Urine Creatinine 03/16/20 03/17/20 03/17/20 23:32 05:50 11:38 WBC RBC Hgb Hct MCHC RDW MCV MCH Lymph % (Auto) [place] % (Auto) [place] # Eos # Lymph # (Auto) [place] # (Auto) Eos # (Auto) Seg Neutrophils % Seg Neuts % (Manual) Baso # (Auto) Lymphocytes % (Manual) Monocytes % (Manual) Eosinophils % (Manual) Basophils % (Manual) Seg Neutrophils # Seg Neutrophils # Man Lymphocytes # (Manual) Monocytes # (Manual) Eosinophils # (Manual) Nucleated RBC % Basophils # (Manual) PT INR APTT Heparin Anti-Xa Level ABG pH POC ABG pO2 ABG pO2 ABG HCO3 ABG O2 Saturation ABG Base Excess POC ABG pCO2 ABG Hemoglobin ABG Oxyhemoglobin ABG Sodium ABG Chloride ABG Glucose Oxyhemoglobin Sodium Potassium Chloride Carbon Dioxide BUN Creatinine Glucose POC Glucose 137 H 160 H 134 H Lactic Acid Calcium Phosphorus Magnesium AST ALT Lactate Dehydrogenase Total Bilirubin Direct Bilirubin CK-MB (CK-2) C-Reactive Protein NT-Pro-B Natriuret Pep Total Protein Albumin Arterial Blood Glucose Urine WBC (Auto) Urine Creatinine 03/17/20 03/17/20 03/18/20 16:59 23:29 05:39 WBC RBC Hgb Hct MCHC RDW MCV MCH Lymph % (Auto) [place] % (Auto) [place] # Eos # Lymph # (Auto) [place] # (Auto) Eos # (Auto) Seg Neutrophils % Seg Neuts % (Manual) Baso # (Auto) Lymphocytes % (Manual) Monocytes % (Manual) Eosinophils % (Manual) Basophils % (Manual) Seg Neutrophils # Seg Neutrophils # Man Lymphocytes # (Manual) Monocytes # (Manual) Eosinophils # (Manual) Nucleated RBC % Basophils # (Manual) PT INR APTT Heparin Anti-Xa Level ABG pH POC ABG pO2 ABG pO2 ABG HCO3 ABG O2 Saturation ABG Base Excess POC ABG pCO2 ABG Hemoglobin ABG Oxyhemoglobin ABG Sodium ABG Chloride ABG Glucose Oxyhemoglobin Sodium Potassium Chloride Carbon Dioxide BUN Creatinine Glucose POC Glucose 120 H 141 H 181 H Lactic Acid Calcium Phosphorus Magnesium AST ALT Lactate Dehydrogenase Total Bilirubin Direct Bilirubin CK-MB (CK-2) C-Reactive Protein NT-Pro-B Natriuret Pep Total Protein Albumin Arterial Blood Glucose Urine WBC (Auto) Urine Creatinine 03/18/20 03/18/20 03/18/20 11:18 15:34 17:42 WBC RBC Hgb Hct MCHC RDW MCV MCH Lymph % (Auto) [place] % (Auto) [place] # Eos # Lymph # (Auto) [place] # (Auto) Eos # (Auto) Seg Neutrophils % Seg Neuts % (Manual) Baso # (Auto) Lymphocytes % (Manual) Monocytes % (Manual) Eosinophils % (Manual) Basophils % (Manual) Seg Neutrophils # Seg Neutrophils # Man Lymphocytes # (Manual) Monocytes # (Manual) Eosinophils # (Manual) Nucleated RBC % Basophils # (Manual) PT INR APTT Heparin Anti-Xa Level ABG pH POC ABG pO2 ABG pO2 ABG HCO3 ABG O2 Saturation ABG Base Excess POC ABG pCO2 ABG Hemoglobin ABG Oxyhemoglobin ABG Sodium ABG Chloride ABG Glucose Oxyhemoglobin Sodium 132 L Potassium 5.4 H D Chloride 96.8 L Carbon Dioxide BUN 24 H Creatinine 0.6 L Glucose 164 H POC Glucose 142 H 118 H Lactic Acid Calcium Phosphorus Magnesium AST ALT Lactate Dehydrogenase Total Bilirubin Direct Bilirubin CK-MB (CK-2) C-Reactive Protein NT-Pro-B Natriuret Pep Total Protein 6.2 L Albumin 2.8 L Arterial Blood Glucose Urine WBC (Auto) Urine Creatinine 03/18/20 03/19/20 03/19/20 23:57 05:40 07:50 WBC RBC Hgb Hct MCHC RDW MCV MCH Lymph % (Auto) [place] % (Auto) [place] # Eos # Lymph # (Auto) [place] # (Auto) Eos # (Auto) Seg Neutrophils % Seg Neuts % (Manual) Baso # (Auto) Lymphocytes % (Manual) Monocytes % (Manual) Eosinophils % (Manual) Basophils % (Manual) Seg Neutrophils # Seg Neutrophils # Man Lymphocytes # (Manual) Monocytes # (Manual) Eosinophils # (Manual) Nucleated RBC % Basophils # (Manual) PT INR APTT Heparin Anti-Xa Level ABG pH POC ABG pO2 ABG pO2 ABG HCO3 ABG O2 Saturation ABG Base Excess POC ABG pCO2 ABG Hemoglobin ABG Oxyhemoglobin ABG Sodium ABG Chloride ABG Glucose Oxyhemoglobin Sodium 136 L Potassium Chloride 97.3 L Carbon Dioxide 31 H BUN 22 H Creatinine 0.5 L Glucose 160 H POC Glucose 127 H 136 H Lactic Acid Calcium Phosphorus Magnesium AST ALT Lactate Dehydrogenase Total Bilirubin Direct Bilirubin CK-MB (CK-2) C-Reactive Protein NT-Pro-B Natriuret Pep Total Protein Albumin Arterial Blood Glucose Urine WBC (Auto) Urine Creatinine 03/19/20 03/19/20 12:21 17:27 WBC RBC Hgb Hct MCHC RDW MCV MCH Lymph % (Auto) [place] % (Auto) [place] # Eos # Lymph # (Auto) [place] # (Auto) Eos # (Auto) Seg Neutrophils % Seg Neuts % (Manual) Baso # (Auto) Lymphocytes % (Manual) Monocytes % (Manual) Eosinophils % (Manual) Basophils % (Manual) Seg Neutrophils # Seg Neutrophils # Man Lymphocytes # (Manual) Monocytes # (Manual) Eosinophils # (Manual) Nucleated RBC % Basophils # (Manual) PT INR APTT Heparin Anti-Xa Level ABG pH POC ABG pO2 ABG pO2 ABG HCO3 ABG O2 Saturation ABG Base Excess POC ABG pCO2 ABG Hemoglobin ABG Oxyhemoglobin ABG Sodium ABG Chloride ABG Glucose Oxyhemoglobin Sodium Potassium Chloride Carbon Dioxide BUN Creatinine Glucose POC Glucose 147 H 152 H Lactic Acid Calcium Phosphorus Magnesium AST ALT Lactate Dehydrogenase Total Bilirubin Direct Bilirubin CK-MB (CK-2) C-Reactive Protein NT-Pro-B Natriuret Pep Total Protein Albumin Arterial Blood Glucose Urine WBC (Auto) Urine Creatinine Chest x-ray: other (none today) Allied health notes reviewed: nursing
[2020-03-19] MEDS: POLYETHYLENE GLYCOL 3350 17 GM POWDER PO SCH (23:22)
[2020-03-19] MEDS: TAMSULOSIN 0.4 MG CAP PO SCH (23:25)
[2020-03-19] MEDS: HALOPERIDOL LACTATE 5 MG/1 ML INJ IV PRN (23:26)
[2020-03-20] MEDS: INSULIN REGULAR, HUMAN 100 UNIT/ML 3ML VIAL SUB-Q SCH ×4 (00:10→18:00)
[2020-03-20] MEDS: GLYCOPYRROLATE 2 MG TAB PO SCH ×3 (07:44→20:33)
--- NOTE | 2020-03-20 08:55 | Progress Note ---
Assessment and Plan Assessment and plan : Persistent A. fib. Monitor today much better rate controlled on digoxin and metoprolol Patient currently off amiodarone due to to elevated liver enzymes Patient currently anticoagulated with Eliquis On as needed IV metoprolol Ischemic Cardiomyopathy, resolving re-echo this presentation reports an LVEF 40-45%. Previous echo 08/2018: LVEF 20-25%. Continue medical therapy Hx of CAD [facility] 12/2018: mild in-stent restenosis. No significant residual disease. Patient on beta-hebert Eliquis and Plavix. No statins for now secondary to elevated liver enzymes can can consider once clinical picture improves Multifocal pneumonia Followed by pulmonology negative COVID-19 test x 3 Respiratory failure Patient currently status post tracheostomy and ventilator History of PE/DVT on Eliquis currently Subjective Date of service: 03/20/20 Principal diagnosis: Ac hypoxemic resp failure; Pneumonia; PUI COVID-19; CHF; COPD; HTN Interval history: Patient currently on tracheostomy. On ventilator. Objective Vital Signs Temp Pulse Resp BP Pulse Ox Pulse Ox 03/20/20 08:00 102 H 20 102/76 100 03/20/20 07:35 100 03/20/20 07:28 109 H 102/72 100 03/20/20 07:00 106 H 18 102/72 100 03/20/20 06:00 117 H 18 99/74 100 03/20/20 05:00 113 H 15 98/74 100 03/20/20 04:58 14 100 03/20/20 04:56 105 H 92/68 100 03/20/20 04:00 98.5 F 117 H 16 92/68 03/20/20 03:00 109 H 14 86/62 100 03/20/20 02:01 111 H 17 96/69 100 03/20/20 01:01 99 H 16 101/75 100 03/20/20 00:33 108 H 105/73 100 03/20/20 00:26 14 100 03/20/20 00:00 97.5 F L 114 H 16 105/73 100 03/19/20 23:21 99/69 03/19/20 23:19 118 H 17 99/69 100 03/19/20 23:01 118 H 19 99/69 99 03/19/20 22:00 113 H 11 L 111/69 100 03/19/20 21:00 129 H 15 101/72 100 03/19/20 20:34 112 H 107/64 100 03/19/20 20:00 97.5 F L 111 H 18 107/64 99 03/19/20 19:01 126 H 11 L 104/79 96 03/19/20 18:04 119 H 03/19/20 18:01 117 H 25 H 84/64 97 03/19/20 17:01 106 H 15 104/79 03/19/20 16:04 119 H 96/72 99 100 03/19/20 16:01 132 H 14 91/65 99 03/19/20 15:01 124 H 14 91/65 98 03/19/20 14:00 126 H 21 106/76 99 03/19/20 13:01 128 H 31 H 92/68 03/19/20 12:49 109 H 92/68 99 03/19/20 12:00 97.4 F L 126 H 14 92/68 97 03/19/20 11:01 109 H 17 92/61 03/19/20 10:01 110 H 14 94/70 100 03/19/20 09:39 101 H 03/19/20 09:00 113 H 17 94/70 99 - Physical Examination Narrative exam: General: Comfortable no acute distress tracheostomy connected to vent. HEENT: NAD Neck: neck supple Cardiac: S1-S2 heard faint 2/6 systolic murmur Lungs: Normal basilar breath sounds heard Neuro: Grossly Intact Abdomen: Soft Extremities: No edema noted General: Other (s/p trach) HEENT: Positive: PERRL Neck: Positive: neck supple, Other (s/p trach) Neuro: Positive: Weakness Abdomen: Positive: Soft Skin: Positive: Clear Extremities: Absent: edema - Labs and Meds Comprehensive Metabolic Panel 03/19/20 Range/Units 07:50 Sodium 136 L (137-145) mmol/L Potassium 3.9 D (3.6-5.0) mmol/L Chloride 97.3 L (98-107) mmol/L Carbon Dioxide 31 H (22-30) mmol/L BUN 22 H (9-20) mg/dL Creatinine 0.5 L (0.8-1.3) mg/dL Glucose 160 H (75-100) mg/dL Calcium 8.7 (8.4-10.2) mg/dL - Allied health notes Allied health notes reviewed: RT
--- NOTE | 2020-03-20 10:00 | Progress Note ---
Assessment and Plan Assessment and plan: --Ischemic cardiomyopathy Cardiology is following, status post cardiac catheterization on 01/22/2020; Co ronary artery disease status post PCI and stent to the LAD Continue current cardiac medications --Acute on chronic hypoxemic respiratory failure; Patient has tracheostomy on vent Continue nebulizers, , trach care Wean off ventilator as tolerated Pulmonary critical following --Acute exacerbation of COPD; Patient is currently on ventilatory support Continue nebulizers --Left lower lobe PE; Continue Eliquis, ventilatory support --Acute right lower extremity DVT; Patient is on Eliquis --Bilateral multifocal pneumonia/community-acquired Completed antibiotics, improved --Severe sepsis/bilateral pneumonia: Completed antibiotics COVID-19 test; 11/24/2019; negative 11/26/2019; negative 12/29/2019: Negative --Paroxysmal atrial fibrillation; Now rate controlled, Stable on amiodarone and Eliquis --Acute on chronic combined systolic and diastolic congestive heart failure Ischemic cardiomyopathy left ventricular ejection fraction 40 to 45% --H/o CAD [[facility] 12/2018 in-stent restenosis] Patient is stable on current cardiac medications --Hypertensive emergency; present on admission Reasonable blood pressures, continue current antihypertensives As needed medications --History of alcohol abuse/alcohol withdrawal; Was on CIWA protocol, now stable --Oropharyngeal dysphagia; status post PEG placement Continue PEG feeds per protocol --History of partial small bowel obstruction; resolved Surgery evaluated. --Obesity; BMI 34.7 Patient needs weight reduction when medically stable --Severe protein calorie malnutrition/hypoalbuminemia Nutrition supplements, dietitian following, PEG feeds --DVT prophylaxis;Eliquis --Full CODE STATUS 01/05; Pt stable. NGT output 650cc over 24 hours, bilious. No f/c, WBC within normal limits. cont NG suction and cont to hold TF 01/06: Abs series - mild improvement in small bowel distension in mid abdomen, normal gas/stool pattern in colon. NGT in duodenum. Continue to hold tube feeding, maintain NG tube with low intermittent suction. Patient's was updated by phone. Continue to provide supportive care and monitor clinically. 01/07: +BMs today and NGT/PEG output appears more gastric today. Plan to clamp NGT, if tolerates start TF from tomorrow. cont supportive care. 01/08; Gastric output decreased over last 24 hours. NGT has been clamped x 24 hours. plan to dc NGT and to start TTF via PEG - vital HF @10cc/hr 01/09: clinically stable, tolerating TF. monitor BMP, wean off from vent as tolerated clinically stable, on TF. wean off vent as tolerated 01/11: wean off from vent, cont to monitor, on TF 01/12: wean off from vent, cont to monitor, on TF. need placement - unfunded 01/13; remains on ventilatory support, unable to wean, DC planning possible LTAC, unfunded 01/14; patient of ventilatory support, T-piece tracheostomy on oxygen, LTAC placement per case management 01/16; tracheostomy, patient on full ventilatory support, wean off vent support as tolerated, pending LTAC placement, social financial issues 01/17; awaiting LTAC placement, insurance and financial issues 01/18; patient tracheostomy remains on ventilatory support 01/19; wean off ventilator as tolerated 01/20; remains on ventilatory support, patient complains of intermittent chest pain, cardiology recommend left heart catheterization tomorrow 01/22/2020. Patient for left heart catheterization per cardiology. Patient remains on AC mode ventilation rate 12, tidal volume 450, FiO2 30% and PEEP of 6. Continue tracheostomy care, airway management and secretion control. 01/23/2020. Cardiac catheterization completed yesterday revealed widely patent previous LAD stent with mild nonobstructive atherosclerosis of the right mid coronary artery and rest of the coronary system was without significant atherosclerosis. The left ventricle ejection fraction was mildly impaired at 40 to 45%. There was some hypokinesis of the basal inferior wall suggestive of previous or recent infarct. Continue GDMT for coronary artery disease including beta blockers, topical nitrates, statin and Plavix. Continue Eliquis for paroxysmal atrial fibrillation and PE. Continue diuresis with Lasix and follow electrolytes closely. Continue Robinul and scopolamine for secretion control and daily SBT per pulmonary. Also, continue bronchodilators and routine trach care/airway management. T-piece trials per pulmonary as tolerated. 01/24/2020. Recent cardiac catheterization has documented widely patent left anterior descending artery stent with minimal nonobstructive diffuse coronary artery disease in the rest of the coronary arteries. Evidence of ischemic cardiomyopathy with inferior wall hypokinesis. Continue with guideline directed medical therapy. Continue Robinul and scopolamine for secretion control and daily SBT per pulmonary. Continue bronchodilators and routine trach care/airway management. T-piece trials per pulmonary as tolerated. 01/25/2020. Continue with guideline directed medical therapy for systolic heart failure. Cardiac catheterization revealed evidence of ischemic cardiomyopathy with inferior wall hypokinesis (EF 40-45%). Patient currently on T-piece with oxygen 10 L/min FiO2 40%. Continue Robinul and scopolamine for secretion control. Continue bronchodilators and routine trach care/airway management. 02/03: Mental status more improved, agree with Reglan will change to IV scheduled for two days, no new vomiting. Pseudomonas A in Sputum. 02/04: Clinical improving, amiodarone discontinued due to LFTs, continue Metoprolol.d/w GI, started on Golytely to clear impaction. Started on dialy Miralax. 02/05: Continue supportive care. Noted bowel movement, continue bowel regimen 02/06: Cardiology input noted beta-hebert increased for better suppression of atrial fibrillation. Continue to monitor, no other evidence of nausea vomiting noted. Discussed with respiratory therapist will be continued on weaning protocol with pressure support today. 02/07: Patient successfully weaned off the ventilator, No new complaints, c ontinue monitoring, BM noted, Discussed with pulmonary, 02/08; tracheostomy on T-piece, patient is more alert and awake today 02/09; clinically no change, tracheostomy on vent 02/10; tracheostomy on vent, full CODE STATUS, poor prognosis, 02/11; clinically no change, remains on ventilatory support, full CODE STATUS, discussed with spouse Ms. Paulette Araiza extensively today 02/12. Patient resting comfortably no change on vent with tracheostomy. Still unable to wean. Some increased crackles today. 02/13: Still unable to wean from the vent. Overall prognosis remains extremely poor. 02/14; remains critically ill, tracheostomy on vent, unable to wean, poor prognosis, full CODE STATUS 02/15; patient is more alert and awake today, chronic tracheostomy on T-piece, continue current management DC planning per case management. Disposition very difficult due to lack of resources and insurance 02/17/2020. Patient remains on mechanical ventilation and tolerating PSV trials. Patient currently with PSV 10/6 at FiO2 of 30%. 02/18/2020. Patient currently on PSV 10/6 with FiO2 of 40%. 40% T-piece trial was attempted but patient unable to tolerate due to saturations dropping into the 80s and heart rate in the 140s. Therefore, patient placed back on PSV. Continue anticoagulation with Eliquis. Continue secretion control with Robinul and scopolamine. Continue rate control with metoprolol and digoxin. 02/19/2020. Patient currently on PSV 10/6 with FiO2 of 30%. T-piece trial attempted yesterday but patient did not tolerate. Continue T-piece trials as tolerated. Continue anticoagulation with Eliquis. Continue secretion control with Robinul and scopolamine. Continue rate control with metoprolol and digoxin. Continue to follow with case management with regards to discharge pl anning. 02/20/2020. Patient continues to tolerate PSV 10/6. Continue rate control with metoprolol and digoxin. Amiodarone discontinued due to elevated liver transaminases. Eliquis for anticoagulation acute PE/DVT. 02/21/2020. Patient continues to tolerate PSV 10/6 at FiO2 of 30%. Continue ra te control with metoprolol and digoxin. Amiodarone discontinued due to elevated liver transaminases. Eliquis for anticoagulation acute PE/DVT. 02/22/2020. Patient continues to tolerate PSV 10/6 at FiO2 of 30%. Continue rate control with metoprolol and digoxin. Amiodarone discontinued due to el evated liver transaminases. Eliquis for anticoagulation acute PE/DVT. 02/22. Awake and alert on vent. Vitals stable. 02/23. Awake and alert on vent. Requests for ice. Vitals stable 02/24. Trach to vent. Continue rate control with metoprolol and digoxin. Amiodarone discontinued due to elevated liver transaminases. Eliquis for anticoagulation of acute PE/DVT. Transferred to [facility] 02/25. Seen in [facility]. Requests for ice. RN to provide a cube of ice. Vitals stable. 02/26. No change in medical condition. Slightly tachy this AM. Will monitor. 02/27. Cardiology started him on a beta hebert. Still on vent 02/28. Discharge planning as per philosophy and religion instructor. Still on vent. Tachycardia noted. 03/01/2020; patient is tachycardic, still on the vent. Discharge management as per philosophy and religion instructor. 03/02/2020; patient is on a vent and trach. Discharge is per philosophy and religion instructor. 03/03/2012; patient is on vent and trach patient is alert and oriented. 03/04/2020; patient is on vent and trach, patient is alert. 03/05/2020; patient is on vent and trach, patient is alert. 03/06/2020 tracheostomy on vent , patient is alert, possible LTAC placement 03/08/2020 remains on ventilatory support; wean off the vent, pending LTAC placement 03/09/2020; clinically no change, tracheostomy on ventilatory support, unable to wean, awaiting LTAC placement, social issues 03/10/2020; clinically no change; patient alert and awake; 03/11/2020; patient is more alert and awake asking for some water, remains on ventilatory support, awaiting LTAC placement 03/12/2020; clinically no change, tracheostomy on ventilatory support, unable to wean, awaiting LTAC placement 03/13 patient on vent via tracheostomy, alert and oriented and offers no complaints except some neck pain. Denies any chest pain or shortness of breath or palpitations. All interdisciplinary notes reviewed 03/14/2020. Patient currently on AC mode ventilation rate of 12 tidal volume 450 FiO2 30% and a PEEP of 6. Patient is s/p tracheostomy on ventilatory support awaiting LTAC placement. 03/15/2020. Patient remains on AC mode ventilation rate 12, tidal volume 450, FiO2 30% and PEEP of 6. Patient failed CPAP trials. Unfortunately, Patient is uninsured and his only d/c option is to return home with family. 03/16/20. Patient remains on AC mode ventilation rate 12, tidal volume 450, FiO2 30% and PEEP of 6. Cont. PSV as figueroa. Patient is uninsured and his only d/c option is to return home with family. 03/17/2020. Patient remains on AC mode ventilation rate 12, tidal volume 450, FiO2 30% and PEEP of 6. Cont. PSV as figueroa. Patient is uninsured and his only d/c option is to return home with family. 03/18/2020. Patient remains on same vent settings the past few days. Continue pressure support ventilation trials as tolerated. Supportive care 03/19/2020. Continue current vent per pulmonary recommendations. Pressure support ventilation trials as tolerated. Continue trach care, secretion control and airway management. Mobility protocols for pressure ulcer prophylaxis. 03/20/2020. Rate better controlled on digoxin and metoprolol per cardiology. Patient currently off amiodarone due to elevated liver enzymes. Continue anticoagulation with Eliquis. IV metoprolol as needed. No statins for now secondary to elevated liver enzymes. Patient remains on AC mode ventilation rate 12, tidal volume 450, FiO2 30% and PEEP of 6. Cont. PSV as figueroa. ontinue trach care, secretion control and airway management. Mobility protocols for pressure ulcer prophylaxis. Patient is uninsured and his only d/c option is to return home with family. The high probability of a clinically significant, sudden or life threatening deterioration of the [Respiratory, cardiovascular & neurological] system(s) required my full and direct attention, intervention and personal management. The aggregate critical care time was [32] minutes without overlap. Time includes spent on [x] Data Review and interpretation [x] Patient assessment and monitoring of vital signs [x] Documentation [x] Medication orders and management History Interval history: Patient is a 64-year-old male with known history of hypertension, COPD, history of coronary artery disease, CHF with ejection fraction of 20 to 25% 2019 was admitted through emergency room with worsening shortness of breath Patient was found to be hypoxic and in respiratory distress. Patient was placed on CPAP in route to the hospital. Patient remained hypoxic on CPAP BiPAP ,subsequently was intubated. Patient also had bilateral multifocal pneumonia managed appropriately with antibiotics sputum cultures positive for Pseudomonas, ID treated with cefepime and Vanco. His hospital course became complicated with acute PE, DVT, paroxysmal atrial fib - placed on chronic anticoagulation. Patient was difficult to wean off, status post trach and PEG, remains on mechanical ventilation with trach tube. He then developed partial small bowel obstruction evaluated by general surgeon symptom improved with medical Mx, patient was briefly weaned off ventilatory support however, was in respiratory failure requiring full ventilatory support. Cardiac catheterization on 01/22/2020. Patient remains on mechanical ventilatory support. Patients still with elevated heart rate of Afib with RVR continue amiodarone and metoprolol. LVEF 40 to 45% o n Eliquis FOR THE Acute PE/DVT. Partial SBO vs ileus- KUB is negative. Brief history; Patient is a 64-year-old male with known history of hypertension, COPD, history of coronary artery disease, CHF with ejection fraction of 20 to 25% 2019 was admitted through emergency room with worsening shortness of breath Patient was found to be hypoxic and in respiratory distress. Patient was placed on CPAP in route to the hospital. Patient remained hypoxic on CPAP BiPAP ,subsequently was intubated, vent dependent. Unable to wean subsequently had tracheostomy and PEG placement, patient also has acute PE DVT and paroxysmal atrial fibrillation on chronic anticoagulation. Patient is vent dependent, social issues, awaiting LTAC placement Hospitalist Physical - Constitutional Vitals: Temp Pulse Resp BP Pulse Ox 98.5 F 102 H 17 102/76 100 03/20/20 04:00 03/20/20 08:00 03/20/20 08:00 03/20/20 08:00 03/20/20 08:00 General appearance: Present: no acute distress, well-nourished, other (Tracheostomy on vent) - EENT Eyes: Present: PERRL, EOM intact ENT: hearing intact, clear oral mucosa, dentition normal - Neck Neck: Present: supple, normal ROM - Respiratory Respiratory effort: normal Respiratory: bilateral: CTA - Cardiovascular Rhythm: regular Heart Sounds: Present: S1 & S2. Absent: gallop, rub - Extremities Extremities: no ischemia, No edema, Full ROM - Abdominal General gastrointestinal: soft, non-tender, non-distended, normal bowel sounds - Integumentary Integumentary: Present: clear, warm, dry - Neurologic Neurologic: CNII-XII intact, moves all extremities HEART Score - HEART Score Troponin: Troponin T < 0.010 ng/mL (0.00-0.029) 01/19/20 01:35 Results - Labs CBC & Chem 7: 03/15/20 04:05 03/19/20 07:50 Labs: Laboratory Last Values WBC 6.0 K/mm3 (4.5-11.0) 03/15/20 04:05 RBC 4.09 M/mm3 (3.65-5.03) 03/15/20 04:05 Hgb 10.0 gm/dl (11.8-15.2) L 03/15/20 04:05 Hct 31.6 % (35.5-45.6) L 03/15/20 04:05 MCV 77 fl (84-94) L 03/15/20 04:05 MCH 24 pg (28-32) L 03/15/20 04:05 MCHC 32 % (32-34) 03/15/20 04:05 RDW 22.4 % (13.2-15.2) H 03/15/20 04:05 Plt Count 205 K/mm3 (140-440) 03/15/20 04:05 Lymph % (Auto) 36.2 % (13.4-35.0) H 03/15/20 04:05 [place] % (Auto) 9.4 % (0.0-7.3) H 03/15/20 04:05 Eos % (Auto) 2.8 % (0.0-4.3) 03/15/20 04:05 Baso % (Auto) 0.6 % (0.0-1.8) 03/15/20 04:05 Lymph # (Auto) 2.2 K/mm3 (1.2-5.4) 03/15/20 04:05 [place] # (Auto) 0.6 K/mm3 (0.0-0.8) 03/15/20 04:05 Eos # (Auto) 0.2 K/mm3 (0.0-0.4) 03/15/20 04:05 Baso # (Auto) 0.0 K/mm3 (0.0-0.1) 03/15/20 04:05 Add Manual Diff Complete 02/15/20 06:59 Total Counted 100 02/15/20 06:59 Seg Neutrophils % 51.0 % (40.0-70.0) 03/15/20 04:05 Seg Neuts % (Manual) 58.0 % (40.0-70.0) 02/15/20 06:59 Band Neutrophils % 0 % 02/15/20 06:59 Lymphocytes % (Manual) 34.0 % (13.4-35.0) 02/15/20 06:59 Reactive Lymphs % (Man) 1.0 % 02/15/20 06:59 Monocytes % (Manual) 4.0 % (0.0-7.3) 02/15/20 06:59 Eosinophils % (Manual) 0 % (0.0-4.3) 02/15/20 06:59 Basophils % (Manual) 2.0 % (0.0-1.8) H 02/15/20 06:59 Metamyelocytes % 1.0 % 02/15/20 06:59 Myelocytes % 0 % 02/15/20 06:59 Promyelocytes % 0 % 02/15/20 06:59 Blast Cells % 0 % 02/15/20 06:59 Nucleated RBC % 1.0 % (0.0-0.9) H 02/15/20 06:59 Seg Neutrophils # 3.0 K/mm3 (1.8-7.7) 03/15/20 04:05 Seg Neutrophils # Man 5.9 K/mm3 (1.8-7.7) 02/15/20 06:59 Band Neutrophils # 0.0 K/mm3 02/15/20 06:59 Lymphocytes # (Manual) 3.5 K/mm3 (1.2-5.4) 02/15/20 06:59 Abs React Lymphs (Man) 0.1 K/mm3 02/15/20 06:59 Monocytes # (Manual) 0.4 K/mm3 (0.0-0.8) 02/15/20 06:59 Eosinophils # (Manual) 0.0 K/mm3 (0.0-0.4) 02/15/20 06:59 Basophils # (Manual) 0.2 K/mm3 (0.0-0.1) H 02/15/20 06:59 Metamyelocytes # 0.1 K/mm3 02/15/20 06:59 Myelocytes # 0.0 K/mm3 02/15/20 06:59 Promyelocytes # 0.0 K/mm3 02/15/20 06:59 Blast Cells # 0.0 K/mm3 02/15/20 06:59 WBC Morphology Not Reportable 02/15/20 06:59 Hypersegmented Neuts Not Reportable 02/15/20 06:59 Hyposegmented Neuts Not Reportable 02/15/20 06:59 Hypogranular Neuts Not Reportable 02/15/20 06:59 Smudge Cells Not Reportable 02/15/20 06:59 Toxic Granulation Not Reportable 02/15/20 06:59 Toxic Vacuolation Not Reportable 02/15/20 06:59 Dohle Bodies Not Reportable 02/15/20 06:59 Pelger-Huet Anomaly Not Reportable 02/15/20 06:59 Hector Rods Not Reportable 02/15/20 06:59 Platelet Estimate Consistent w auto 02/15/20 06:59 Clumped Platelets Not Reportable 02/15/20 06:59 Plt Clumps, EDTA Not Reportable 02/15/20 06:59 Large Platelets Not Reportable 02/15/20 06:59 Giant Platelets Not Reportable 02/15/20 06:59 Platelet Satelliting Not Reportable 02/15/20 06:59 Plt Morphology Comment Giant platelets 02/15/20 06:59 RBC Morphology Not Reportable 02/15/20 06:59 Dimorphic RBCs Not Reportable 02/15/20 06:59 Polychromasia Not Reportable 02/15/20 06:59 Hypochromasia 1+ 02/15/20 06:59 Poikilocytosis Few 02/15/20 06:59 Anisocytosis 1+ 02/15/20 06:59 Microcytosis Not Reportable 02/15/20 06:59 Macrocytosis Not Reportable 02/15/20 06:59 Spherocytes Not Reportable 02/15/20 06:59 Pappenheimer Bodies Not Reportable 02/15/20 06:59 Sickle Cells Not Reportable 02/15/20 06:59 Target Cells 1+ 02/15/20 06:59 Tear Drop Cells Few 02/15/20 06:59 Ovalocytes Not Reportable 02/15/20 06:59 Helmet Cells Not Reportable 02/15/20 06:59 [place] Bodies Not Reportable 02/15/20 06:59 [place] Rings Not Reportable 02/15/20 06:59 Oc Cells Not Reportable 02/15/20 06:59 Bite Cells Not Reportable 02/15/20 06:59 Crenated Cell Not Reportable 02/15/20 06:59 Elliptocytes Few 02/15/20 06:59 Acanthocytes (Spur) Not Reportable 02/15/20 06:59 Rouleaux Not Reportable 02/15/20 06:59 Hemoglobin C Crystals Not Reportable 02/15/20 06:59 Schistocytes Not Reportable 02/15/20 06:59 Malaria parasites Not Reportable 02/15/20 06:59 Clifford Bodies Not Reportable 02/15/20 06:59 Hem Pathologist Commnt No 02/15/20 06:59 PT 27.0 Sec. (12.2-14.9) H 02/07/20 15:03 INR 2.46 (0.87-1.13) H 02/07/20 15:03 APTT 31.5 Sec. (24.2-36.6) 01/22/20 09:58 Heparin Anti-Xa Level 1.34 U.I./ml (0.3-0.7) H 01/22/20 04:45 ABG pH 7.454 (7.320-7.450) H 03/12/20 04:45 POC ABG pCO2 45.6 mmHg (32.0-48.0) 03/12/20 04:45 ABG pCO2 47.8 mm Hg 02/20/20 06:45 POC ABG pO2 69.2 mmHg (83-108) L 03/12/20 04:45 ABG pO2 88.7 mm Hg (80.0-90.0) 02/20/20 06:45 POC ABG HCO3 31.3 03/12/20 04:45 ABG HCO3 33.3 mmol/L (20.0-26.0) H 02/20/20 06:45 ABG O2 Saturation 97.2 % (95.0-99.0) 02/20/20 06:45 ABG O2 Content 13.3 (0.0-44) 02/20/20 06:45 POC ABG Base Excess 6.5 03/12/20 04:45 ABG Base Excess 8.4 mmol/L (-2.0-3.0) H 02/20/20 06:45 ABG Hemoglobin 11.2 (12.0-17.5) L 03/12/20 04:45 ABG Oxyhemoglobin 84 (94-98) L 12/22/19 03:22 ABG Carboxyhemoglobin 2.9 % (0.0-5.0) 02/20/20 06:45 ABG Methemoglobin 0.4 % (0.0-1.5) 02/20/20 06:45 ABG Sodium 134.7 mmol/L (136.0-145.0) L 03/12/20 04:45 ABG Potassium 3.9 mmol/L (3.40-4.50) 03/12/20 04:45 ABG Chloride 98.0 mmol/L (98-107) 03/12/20 04:45 ABG Glucose 151 mg/dL (65-95) H 03/12/20 04:45 Oxyhemoglobin 94.1 % (95.0-99.0) L 02/20/20 06:45 Carboxyhemoglobin 0.7 (0.5-1.5) 12/22/19 03:22 FiO2 30 03/12/20 04:45 Sodium 136 mmol/L (137-145) L 03/19/20 07:50 Potassium 3.9 mmol/L (3.6-5.0) D 03/19/20 07:50 Chloride 97.3 mmol/L (98-107) L 03/19/20 07:50 Carbon Dioxide 31 mmol/L (22-30) H 03/19/20 07:50 Anion Gap 12 mmol/L 03/19/20 07:50 BUN 22 mg/dL (9-20) H 03/19/20 07:50 Creatinine 0.5 mg/dL (0.8-1.3) L 03/19/20 07:50 Estimated GFR > 60 ml/min 03/19/20 07:50 BUN/Creatinine Ratio 44 % 03/19/20 07:50 Glucose 160 mg/dL (75-100) H 03/19/20 07:50 POC Glucose 146 mg/dL (70-105) H 03/20/20 05:59 Lactic Acid 1.60 mmol/L (0.7-2.0) 02/03/20 12:49 Ferritin 84.4 ng/mL (30.0-300.0) 11/24/19 04:53 Calcium 8.7 mg/dL (8.4-10.2) 03/19/20 07:50 Phosphorus 4.10 mg/dL (2.5-4.5) 01/31/20 19:24 Magnesium 2.40 mg/dL (1.7-2.3) H 02/10/20 07:40 Total Bilirubin 0.90 mg/dL (0.1-1.2) 03/18/20 15:34 Direct Bilirubin 0.9 mg/dL (0-0.2) H 02/08/20 19:00 Indirect Bilirubin 0.4 mg/dL 02/08/20 19:00 Total Creatine Kinase 141 units/L (55-170) 11/24/19 02:53 CK-MB (CK-2) 4.3 ng/mL (0.0-4.0) H 11/24/19 02:53 AST 23 units/L (5-40) 03/18/20 15:34 CK-MB (CK-2) Rel Index 3.0 (0-4) 11/24/19 02:53 ALT 22 units/L (7-56) 03/18/20 15:34 Alkaline Phosphatase 96 units/L (35-129) 03/18/20 15:34 C-Reactive Protein 8.50 mg/dL (0.00-1.30) H 12/01/19 12:16 Ammonia 35.0 umol/L (25-60) 02/03/20 12:49 Lactate Dehydrogenase 228 units/L (91-180) H 12/19/19 04:45 Troponin T < 0.010 ng/mL (0.00-0.029) 01/19/20 01:35 NT-Pro-B Natriuret Pep 3866 pg/mL (0-900) H 01/01/20 10:40 Total Protein 6.2 g/dL (6.3-8.2) L 03/18/20 15:34 Albumin 2.8 g/dL (3.9-5) L 03/18/20 15:34 Albumin/Globulin Ratio 0.8 % 03/18/20 15:34 Procalcitonin 0.44 ng/mL (<0.15) 02/03/20 12:49 Arterial Blood Glucose 151 mg/dL (65-95) H 03/12/20 04:45 Arterial Blood Ionized Calcium 4.8 mg/dL (4.6-5.3) 03/12/20 04:45 Urine Color Cecy (Yellow) 02/26/20 07:50 Urine Turbidity Clear (Clear) 02/26/20 07:50 Urine pH 5.0 (5.0-7.0) 02/26/20 07:50 Ur Specific [place] 1.025 (1.003-1.030) 02/26/20 07:50 Urine Protein 30 mg/dl mg/dL (Negative) 02/26/20 07:50 Urine Glucose (UA) Neg mg/dL (Negative) 02/26/20 07:50 Urine Ketones Neg mg/dL (Negative) 02/26/20 07:50 Urine Blood Sm (Negative) 02/26/20 07:50 Urine Nitrite Neg (Negative) 02/26/20 07:50 Urine Bilirubin Neg (Negative) 02/26/20 07:50 Urine Urobilinogen 4.0 mg/dL (<2.0) 02/26/20 07:50 Ur Leukocyte Esterase Lg (Negative) 02/26/20 07:50 Urine WBC (Auto) > 182.0 /HPF (0.0-6.0) H 02/26/20 07:50 Urine RBC (Auto) 84.0 /HPF (0.0-6.0) 02/26/20 07:50 U Epithel Cells (Auto) 2.0 /HPF (0-13.0) 12/31/19 18:04 Urine Bacteria (Auto) 4+ /HPF (Negative) 02/26/20 07:50 Urine WBC Clumps 2+ /HPF 02/26/20 07:50 Urine Mucus 1+ /HPF 02/26/20 07:50 Urine Creatinine 57.4 mg/dL (0.1-20.0) H 01/31/20 Unknown Urine Sodium 59 mmol/L 01/31/20 Unknown Vancomycin Trough 14.2 ug/mL (5.0-20.0) 12/13/19 15:01 Coronavirus (PCR) Negative (Negative) 12/29/19 10:07 Hepatitis A IgM Ab Non-reactive (NonReactive) 02/05/20 06:37 Hep Bs Antigen Non-reactive (Negative) 02/05/20 06:37 Hep B Core IgM Ab Non-reactive (NonReactive) 02/05/20 06:37 Hepatitis C Antibody Non-reactive (NonReactive) 02/05/20 06:37 Blood Type O POSITIVE 01/21/20 13:00 Antibody Screen Negative 01/21/20 13:00 - Diagnostic Impressions Diagnostic Impressions: Echocardiogram 11/29/19 07:37 Transthoracic Echocardiogram Indication: CHF BP: 116/72 HR: 33 Conclusions *The study is technically limited due to poor acoustic windows. *Global left ventricular systolic function is normal. *The estimated ejection fraction is 50-55%. *Mild concentric left ventricular hypertrophy is observed. *There is trace of mitral regurgitation. *There is mild tricuspid regurgitation. Findings Procedure Info: The study quality is poor. The study is technically limited due to poor acoustic windows. The study is technically limited due to patient body habitus. Left Ventricle: The left ventricular chamber size is normal. Mild concentric left ventricular hypertrophy is observed. Global left ventricular systolic function is normal. The estimated ejection fraction is 50-55%. Left Atrium: The left atrial chamber size is normal. Right Ventricle: The right ventricular cavity size is normal. Right Atrium: The right atrial cavity size is normal. Aortic Valve: The aortic valve leaflets are moderately thickened. There is trace of aortic regurgitation. There is no evidence of aortic stenosis. Mitral Valve: The mitral valve leaflets are mildly thickened. There is trace of mitral regurgitation. There is no evidence of mitral stenosis. Tricuspid Valve: There is mild tricuspid regurgitation. No pulmonary hypertension is noted. Pulmonic Valve: There is trace pulmonic regurgitation. Pericardium: There is no pericardial effusion. Aorta: There is no dilatation of the aortic root. Venous: The inferior vena cava appears normal in size. Contrast: Definity was used to optimize study. Intravenous contrast was used to enhance endocardial border definition. Measurements Chambers 2D Name Value Normal Range Ao root diameter (2D) 3.4 cm (2 - 3.7) Aortic Valve Name Value Normal Range AV Vmax 0.98 m/sec - AV VTI 16.76 cm - AV peak gradient 3.83 mmHg - AV mean gradient 2.57 mmHg - LVOT diameter 3.11 cm - LVOT Vmax 0.68 m/sec - LVOT VTI 11.52 cm - LVOT peak gradient 1.84 mmHg - LVOT mean gradient 1.27 mmHg - SV LVOT 87.31 ml - MALOU (continuity Vmax) 5.24 cm2 - MALOU (continuity VTI) 5.21 cm2 - Tricuspid Valve Name Value Normal Range IVC diameter 2.24 cm (1.2 - 2.3) Hoffman/IV: Voiding Method Indwelling Catheter IV Catheter Type [Left INT / Saline Lock Antecubital] IV Catheter Type [Right INT / Saline Lock Forearm] IV Catheter Type [Right Hand] Peripheral IV IV Catheter Type [Right Upper INT / Saline Lock arm] IV Catheter Type [Left Upper Mid-line arm] IV Catheter Type [Left Forearm Peripheral IV ] IV Catheter Type [Left Hand] Peripheral IV IV Catheter Type [Left Wrist] INT / Saline Lock IV Catheter Type [Right Peripheral IV Antecubital] Active Medications - Current Medications Current Medications: Generic Name Dose Route Start Last Admin Trade Name Freq PRN Reason Stop Dose Admin Acetaminophen 650 mg 03/12/20 04:29 03/19/20 02:31 Acetaminophen 325 Mg/10.15 Ml Oral Liqd Unit Dose FEEDTUBE 650 mg Q6H PRN Administration Pain, Mild (1-3) Lipase/Protease/Amylase 1 each 01/09/20 12:01 03/18/20 11:09 Lipase 10,500/Protease 25,000/Amylase 43,750 (Units) Dr Lauren FEEDTUBE 1 each PRN PRN Administration For Clogged Feeding Tube Apixaban 5 mg 01/22/20 22:00 03/19/20 23:26 Eliquis PO 5 mg Q12HR CAR Administration Protocol Atorvastatin Calcium 40 mg 01/20/20 22:00 03/19/20 23:25 Atorvastatin 40 Mg Tab PO 40 mg QHS CAR Administration Clopidogrel Bisulfate 75 mg 01/21/20 06:00 03/19/20 09:40 Clopidogrel 75 Mg Tab PO 75 mg QDAY CAR Administration Dextrose 50 ml 01/31/20 18:51 02/05/20 00:56 D50w (25gm) Syringe IV 50 ml Q30MIN PRN Administration Hypoglycemia Protocol Digoxin 0.125 mg 02/25/20 17:00 03/19/20 18:04 Lanoxin PO 0.125 mg DAILY@1700 CAR Administration Docusate Sodium 100 mg 02/22/20 10:00 03/19/20 23:21 Colace FEEDTUBE Not Given BID CAR Glycopyrrolate 2 mg 02/24/20 21:00 03/20/20 07:44 Glycopyrrolate PO 2 mg TID CAR Administration Haloperidol Lactate 5 mg 02/10/20 14:20 03/19/20 23:26 Haloperidol Lactate 5 Mg/1 Ml Inj IV 5 mg Q6H PRN Administration Agitation Hydrophilic Ointment 1 applic 01/17/20 15:26 02/24/20 23:20 Lip Therapy Vaseline TP 1 applic DIRECT PRN Administration Dry Lips Insulin Human Regular 0 unit 02/01/20 18:00 03/20/20 07:44 Humulin R SUB-Q Not Given Q6H CAR Protocol Lansoprazole 30 mg 02/05/20 16:00 03/19/20 09:40 Lansoprazole 30 Mg Solutab FEEDTUBE 30 mg QDAY CAR Administration Metoprolol Tartrate 5 mg 01/11/20 08:00 03/18/20 16:52 Metoprolol Tartrate 5 Mg/5 Ml Inj IV 5 mg Q6H PRN Administration SEE INSTRUCTIONS Metoprolol Tartrate 12.5 mg 02/28/20 12:00 03/19/20 23:21 Metoprolol FEEDTUBE Not Given BID CAR Midodrine 15 mg 02/04/20 16:00 03/19/20 18:04 Midodrine 5 Mg Tab PO 15 mg TID@0800,1200,1600 CAR Administration Morphine Sulfate 2 mg 01/06/20 15:41 03/19/20 13:20 Morphine 2 Mg/1 Ml Inj IV 2 mg Q4H PRN Administration Pain, Moderate (4-6) Multi-Ingred Cream/Lotion/Oil/Oint 1 applic 02/01/20 15:52 Artificial Tears Ophth Oint OU Q4HR PRN Dry Eye(s) Nitroglycerin 0.4 mg 01/19/20 21:09 01/20/20 03:03 Nitroglycerin 0.4 Mg Tab Subl SL 0.4 mg .Q5MIN PRN Administration Chest Pain Ondansetron HCl 4 mg 01/05/20 14:37 03/18/20 11:09 Ondansetron 4 Mg/2 Ml Inj IV 4 mg Q8H PRN Administration Nausea And Vomiting Polyethylene Glycol 17 gm 12/04/19 22:00 03/19/20 23:22 Miralax 3350 PO Not Given QHS CAR Quetiapine Fumarate 300 mg 01/13/20 22:00 03/19/20 23:25 Quetiapine 100 Mg Tab PO 300 mg BID CAR Administration Simple Syrup 15 ml 01/09/20 12:01 Simple Syrup 15 Ml FEEDTUBE PRN PRN Hypoglycemia Simple Syrup 30 ml 01/09/20 12:01 Simple Syrup 15 Ml FEEDTUBE PRN PRN Hypoglycemia Sodium Bicarbonate 325 mg 01/09/20 12:01 03/07/20 12:56 Sodium Bicarbonate 325 Mg Tab FEEDTUBE 325 mg PRN PRN Administration For Clogged Feeding Tube Sodium Chloride 10 ml 11/24/19 10:00 03/19/20 23:26 Sodium Chloride 0.9% 10 Ml Flush Syringe IV 10 ml BID CAR Administration Tamsulosin HCl 0.8 mg 12/20/19 22:00 03/19/20 23:25 Tamsulosin 0.4 Mg Cap PO 0.8 mg QHS CAR Administration Nutrition/Malnutrition Assess - Dietary Evaluation Nutrition/Malnutrition Findings: Nutrition Notes Start: 11/24/19 12:22 Freq: Status: Active Protocol: Document 03/17/20 10:48 LM (Rec: 03/17/20 11:08 LM [id number]) Nutrition Notes Initial or Follow up Reassessment Current Diagnosis Coronary Artery Disease,Heart Failure,Respiratory Failure, Stroke,Hyperlipidemia Other Pertinent Diagnosis pneumonia Current Diet Osmolite 1.5 at 65ml/hr Labs/Tests Reviewed Pertinent Medications Humulin Height 6 ft 2 in Weight 123.2 kg [place] Body Weight (kg) 86.36 BMI 34.8 Weight Status Obese Subjective/Other Information Observed TF running at 55ml/hr instead of 65ml/hr. Informed RN. Percent of energy/protein needs met: 95%/48% Burn Absent Trauma Absent GI Symptoms None Current % PO Negligible Minimum of two criteria Yes Muscle Mass Mild Depletion (non-severe) Fluid Accumulation Mild (non-severe) Reduced Director Of Blood Strength Measurably Reduced (severe) #2 Nutrition Diagnosis Malnutrition Diagnosis Progress(for reassessment Continues documentation) #1 Nutrition Diagnosis Inadequate oral intake Diagnosis Progress(for reassessment Continues documentation) Is patient on ventilator? Yes Is Patient Ambulatory and/or Out of Bed No REE-([facility]-confined to bed) 2520.672 Kcal/Kg value to use for calculation 17 Approximate Energy Requirements Using 2094 kcal/Kg Calculation Used for Recommendations Kcal/kg Additional Notes Protein needs are 173g ( greater than 2g/kg IBW) Fluid needs are 1 ml/kcal Nutrition Intervention Change Diet Order: Continue TF via PEG Nutrition Support: Osmolite 1.5 at 65 ml/hr. Flush 200 ml q4h. Kcal 2,340 Protein (gm) 98 Fluid (mL) 1,189 Goal #1 Meet at least 75% of pt's energy and protein needs via TF Anticipated Discharge Needs: unable to determine at this time Follow-Up By: 03/22/20 Additional Comments F/U for TF at goal rate
[2020-03-20] MEDS: LANSOPRAZOLE 30 MG SOLUTAB FEEDTUBE SCH (10:05)
[2020-03-20] MEDS: DOCUSATE SODIUM 100 MG/10 ML ORAL LIQD FEEDTUBE SCH ×2 (10:05→21:27)
[2020-03-20] MEDS: METOPROLOL TARTRATE 25 MG TAB FEEDTUBE SCH ×2 (10:05→21:29)
[2020-03-20] MEDS: CLOPIDOGREL 75 MG TAB PO SCH (10:05)
[2020-03-20] MEDS: APIXABAN 5 MG TAB PO SCH ×2 (10:05→21:28)
[2020-03-20] MEDS: QUEtiapine 100 MG TAB PO SCH ×2 (10:05→21:30)
[2020-03-20] MEDS: MIDODRINE 5 MG TAB PO SCH ×3 (10:05→15:24)
[2020-03-20] MEDS: DIGOXIN 0.125 MG TAB PO SCH (16:16)
--- NOTE | 2020-03-20 20:26 | Progress Note ---
Assessment and Plan Acute hypoxemic respiratory failure Bilateral pneumonia, community acquired. Acute LLL branch P.E. Acute DVT Person under investigation for COVID-19 infection. Acute congestive heart failure exacerbation. History of cerebrovascular accident. Acute chronic obstructive pulmonary disease exacerbation. Hypertension and hypertensive urgency at presentation. History of arthritis. Leukocytosis. Lactic acidosis. Oropharyngeal dysphagia - LTAC evaluation ongoing - remains a difficult wean, continue care as below; - continue daily SAT's and SBT assessment as tolerated - continue to wean oxygen for O2 sat's > 92% - continue bronchodilators with routine trach care and pulmonary hygiene per RT - VAP bundle addressed (Aspiration precautions, HOB >40) - continue to wean per pulmonary driven protocols - continue to rest on AC qhs - continue Flomax - antiinfective's per ID rec's - Midodrine for BP support - prn mucomyst nebs re: secretions - continue full anticoagulation with Apixaban - continue seroquel for anxiolysis / delirium - COVID isolation per facility protocol - prn diuresis while following electrolytes / I's & O's - sedation target is RASS 0 to -1 - continue prn analgesia per CPOT score - follow clinically re: fever curves / trend WBC - Avoid delirium (no benzodiazepines if they can be avoided) - Maintain sleep-wake cycle - enteral nutrition at goal rate as tolerated - continue accucheck's with glycemic control per SSI for target blood glucose goal of 140-180 mg/dL while critically ill; Avoid hypoglycemia - for VTE he is onEliquis - continue stress ulcer prophylaxis with Famotidine - continue mobility protocols for pressure ulcer prophylaxis - continue fall precautions - continue wound care management per RN / WCT - Supportive transfusions to keep HgB>7g/dL - CXR's and ABG's prn - Continue to monitor neurologic function - Continue chronic home medications - Continue all supportive care ........ re-evaluate in am & prn CONDITION: CRITICAL PROGNOSIS: GUARDED CODE STATUS: FULL CODE The high probability of a clinically significant, sudden or life threatening deterioration of the [Respiratory, cardiovascular & neurological] system(s) required my full and direct attention, intervention and personal management. The aggregate critical care time was [31] minutes without overlap. Time includes spent on [x] Data Review and interpretation [x] Patient assessment and monitoring of vital signs [x] Documentation [x] Medication orders and management Subjective Date of service: 03/20/20 Principal diagnosis: Ac hypoxemic resp failure; Pneumonia; PUI COVID-19; CHF; COPD; HTN Interval history: Patient is seen today for: Acute hypoxemic respiratory failure; Adan. Pneumonia (CAP); PUI COVID-19 infection; AE-CHF; AE-COPD; H/O CVA; HTN Seen and examined at bedside; 24 hour events reviewed; nursing and respiratory care staff consulted; no adverse overnight events reported to me; resting peacefully in bed; remains ventilator dependent; no emesis or overt aspiration; afebrile Objective Vital Signs - 12hr 03/20/20 03/20/20 03/20/20 09:00 10:00 10:05 Temperature Pulse Rate 128 H 132 H 111 H Respiratory 13 21 Rate Blood Pressure 102/72 91/58 91/58 O2 Sat by Pulse 100 Oximetry O2 Sat by Pulse Oximetry [ Assessment] 03/20/20 03/20/20 03/20/20 11:00 12:00 12:05 Temperature 98.1 F Pulse Rate 116 H 118 H Respiratory 21 17 Rate Blood Pressure 100/67 100/67 O2 Sat by Pulse 99 100 100 Oximetry O2 Sat by Pulse Oximetry [ Assessment] 03/20/20 03/20/20 03/20/20 13:00 14:00 15:00 Temperature Pulse Rate 103 H 113 H 113 H Respiratory 17 16 21 Rate Blood Pressure 92/67 92/67 100/78 O2 Sat by Pulse 100 100 100 Oximetry O2 Sat by Pulse Oximetry [ Assessment] 03/20/20 03/20/20 03/20/20 16:00 16:13 16:16 Temperature 98.2 F Pulse Rate 116 H 126 H Respiratory 19 Rate Blood Pressure 90/73 96/73 O2 Sat by Pulse 100 100 Oximetry O2 Sat by Pulse 100 Oximetry [ Assessment] 03/20/20 17:00 Temperature Pulse Rate 110 H Respiratory 17 Rate Blood Pressure 98/75 O2 Sat by Pulse Oximetry O2 Sat by Pulse Oximetry [ Assessment] Constitutional: no acute distress, other (elelelderly and obese male, normocephalic with mildly increased respiratory effort at rest) Eyes: non-icteric ENT: oropharynx moist, other (+ midline tracheostomy) Neck: supple, no JVD Effort: mildly labored Ascultation: Bilateral: diminished breath sounds, rhonchi (scant) Percussion: Bilateral: not dull Cardiovascular: irregular rhythm Gastrointestinal: normoactive bowel sounds, soft, non-tender, non-distended (protuberant), other (protuberant; PEG in place) Integumentary: normal Extremities: no cyanosis, no edema, pulses normal, no ischemia or petechiae Neurologic: non-focal exam (grossly; moves extremities), pupils equal and round, unable to assess Psychiatric: mood appropriate, affect normal CBC and BMP: 03/22/20 06:39 03/22/20 06:39 ABG, PT/INR, D-dimer: ABG ABG pH 7.454 (7.320-7.450) H 03/12/20 04:45 POC ABG pCO2 45.6 mmHg (32.0-48.0) 03/12/20 04:45 ABG pCO2 47.8 mm Hg 02/20/20 06:45 POC ABG pO2 69.2 mmHg (83-108) L 03/12/20 04:45 ABG pO2 88.7 mm Hg (80.0-90.0) 02/20/20 06:45 POC ABG HCO3 31.3 03/12/20 04:45 ABG O2 Saturation 97.2 % (95.0-99.0) 02/20/20 06:45 PT/INR, D-dimer PT 27.0 Sec. (12.2-14.9) H 02/07/20 15:03 INR 2.46 (0.87-1.13) H 02/07/20 15:03 Abnormal lab findings: Abnormal Labs 11/24/19 11/24/19 11/24/19 02:53 02:53 03:45 WBC 14.3 H RBC Hgb Hct MCHC RDW 17.2 H MCV MCH Lymph % (Auto) Mineral % (Auto) Mineral # Eos # Lymph # (Auto) Mineral # (Auto) Eos # (Auto) Seg Neutrophils % Seg Neuts % (Manual) Baso # (Auto) Lymphocytes % (Manual) Monocytes % (Manual) Eosinophils % (Manual) Basophils % (Manual) Seg Neutrophils # Seg Neutrophils # Man 8.3 H Lymphocytes # (Manual) Monocytes # (Manual) 0.9 H Eosinophils # (Manual) Nucleated RBC % Basophils # (Manual) PT INR APTT Heparin Anti-Xa Level ABG pH 7.313 L POC ABG pO2 ABG pO2 102.8 H ABG HCO3 ABG O2 Saturation ABG Base Excess -2.9 L POC ABG pCO2 ABG Hemoglobin ABG Oxyhemoglobin ABG Sodium ABG Chloride ABG Glucose Oxyhemoglobin 93.9 L Sodium Potassium Chloride Carbon Dioxide BUN Creatinine Glucose 195 H POC Glucose Lactic Acid Calcium Phosphorus Magnesium AST ALT Lactate Dehydrogenase Total Bilirubin Direct Bilirubin CK-MB (CK-2) 4.3 H C-Reactive Protein NT-Pro-B Natriuret Pep 1181 H Total Protein Albumin Arterial Blood Glucose Urine WBC (Auto) Urine Creatinine 11/24/19 11/24/19 11/24/19 04:53 04:53 10:37 WBC RBC Hgb Hct MCHC RDW MCV MCH Lymph % (Auto) Mineral % (Auto) Mineral # Eos # Lymph # (Auto) Mineral # (Auto) Eos # (Auto) Seg Neutrophils % Seg Neuts % (Manual) Baso # (Auto) Lymphocytes % (Manual) Monocytes % (Manual) Eosinophils % (Manual) Basophils % (Manual) Seg Neutrophils # Seg Neutrophils # Man Lymphocytes # (Manual) Monocytes # (Manual) Eosinophils # (Manual) Nucleated RBC % Basophils # (Manual) PT INR APTT Heparin Anti-Xa Level ABG pH POC ABG pO2 ABG pO2 ABG HCO3 ABG O2 Saturation ABG Base Excess POC ABG pCO2 ABG Hemoglobin ABG Oxyhemoglobin ABG Sodium ABG Chloride ABG Glucose Oxyhemoglobin Sodium Potassium Chloride Carbon Dioxide BUN Creatinine Glucose 162 H POC Glucose Lactic Acid 2.40 H* 2.50 H* Calcium Phosphorus Magnesium AST ALT Lactate Dehydrogenase 240 H Total Bilirubin Direct Bilirubin CK-MB (CK-2) C-Reactive Protein NT-Pro-B Natriuret Pep Total Protein Albumin Arterial Blood Glucose Urine WBC (Auto) Urine Creatinine 11/24/19 11/24/19 11/24/19 12:21 14:50 19:54 WBC RBC Hgb Hct MCHC RDW MCV MCH Lymph % (Auto) Mineral % (Auto) Mineral # Eos # Lymph # (Auto) Mineral # (Auto) Eos # (Auto) Seg Neutrophils % Seg Neuts % (Manual) Baso # (Auto) Lymphocytes % (Manual) Monocytes % (Manual) Eosinophils % (Manual) Basophils % (Manual) Seg Neutrophils # Seg Neutrophils # Man Lymphocytes # (Manual) Monocytes # (Manual) Eosinophils # (Manual) Nucleated RBC % Basophils # (Manual) PT INR APTT Heparin Anti-Xa Level ABG pH POC ABG pO2 ABG pO2 ABG HCO3 ABG O2 Saturation ABG Base Excess POC ABG pCO2 ABG Hemoglobin ABG Oxyhemoglobin ABG Sodium ABG Chloride ABG Glucose Oxyhemoglobin Sodium Potassium Chloride Carbon Dioxide BUN Creatinine Glucose POC Glucose 145 H 143 H 124 H Lactic Acid Calcium Phosphorus Magnesium AST ALT Lactate Dehydrogenase Total Bilirubin Direct Bilirubin CK-MB (CK-2) C-Reactive Protein NT-Pro-B Natriuret Pep Total Protein Albumin Arterial Blood Glucose Urine WBC (Auto) Urine Creatinine 11/25/19 11/25/19 11/25/19 00:18 03:18 05:11 WBC 13.7 H RBC Hgb Hct MCHC RDW 17.1 H MCV MCH Lymph % (Auto) 10.8 L Mineral % (Auto) 8.7 H Mineral # 1.2 H Eos # Lymph # (Auto) Mineral # (Auto) Eos # (Auto) Seg Neutrophils % 80.2 H Seg Neuts % (Manual) Baso # (Auto) Lymphocytes % (Manual) Monocytes % (Manual) Eosinophils % (Manual) Basophils % (Manual) Seg Neutrophils # 11.0 H Seg Neutrophils # Man Lymphocytes # (Manual) Monocytes # (Manual) Eosinophils # (Manual) Nucleated RBC % Basophils # (Manual) PT INR APTT Heparin Anti-Xa Level ABG pH 7.333 L POC ABG pO2 ABG pO2 61.2 L ABG HCO3 ABG O2 Saturation 90.2 L ABG Base Excess POC ABG pCO2 ABG Hemoglobin 13.7 L ABG Oxyhemoglobin ABG Sodium ABG Chloride ABG Glucose Oxyhemoglobin 88.2 L Sodium Potassium Chloride Carbon Dioxide BUN Creatinine Glucose POC Glucose 109 H Lactic Acid Calcium Phosphorus Magnesium AST ALT Lactate Dehydrogenase Total Bilirubin Direct Bilirubin CK-MB (CK-2) C-Reactive Protein NT-Pro-B Natriuret Pep Total Protein Albumin Arterial Blood Glucose Urine WBC (Auto) Urine Creatinine 11/25/19 11/25/19 11/26/19 05:11 11:40 03:12 WBC RBC Hgb Hct MCHC RDW MCV MCH Lymph % (Auto) Mineral % (Auto) Mineral # Eos # Lymph # (Auto) Mineral # (Auto) Eos # (Auto) Seg Neutrophils % Seg Neuts % (Manual) Baso # (Auto) Lymphocytes % (Manual) Monocytes % (Manual) Eosinophils % (Manual) Basophils % (Manual) Seg Neutrophils # Seg Neutrophils # Man Lymphocytes # (Manual) Monocytes # (Manual) Eosinophils # (Manual) Nucleated RBC % Basophils # (Manual) PT INR APTT Heparin Anti-Xa Level ABG pH POC ABG pO2 ABG pO2 155.1 H ABG HCO3 27.8 H ABG O2 Saturation ABG Base Excess POC ABG pCO2 ABG Hemoglobin 12.2 L ABG Oxyhemoglobin ABG Sodium ABG Chloride ABG Glucose Oxyhemoglobin Sodium Potassium Chloride Carbon Dioxide BUN 23 H Creatinine Glucose 110 H POC Glucose 108 H Lactic Acid Calcium Phosphorus Magnesium AST ALT Lactate Dehydrogenase Total Bilirubin Direct Bilirubin CK-MB (CK-2) C-Reactive Protein NT-Pro-B Natriuret Pep Total Protein Albumin Arterial Blood Glucose Urine WBC (Auto) Urine Creatinine 11/26/19 11/26/19 11/26/19 06:17 10:43 10:43 WBC 11.4 H RBC Hgb Hct MCHC RDW 17.1 H MCV MCH Lymph % (Auto) Mineral % (Auto) Mineral # Eos # Lymph # (Auto) Mineral # (Auto) Eos # (Auto) Seg Neutrophils % Seg Neuts % (Manual) Baso # (Auto) Lymphocytes % (Manual) Monocytes % (Manual) Eosinophils % (Manual) Basophils % (Manual) Seg Neutrophils # Seg Neutrophils # Man Lymphocytes # (Manual) Monocytes # (Manual) Eosinophils # (Manual) Nucleated RBC % Basophils # (Manual) PT INR APTT Heparin Anti-Xa Level ABG pH POC ABG pO2 ABG pO2 ABG HCO3 ABG O2 Saturation ABG Base Excess POC ABG pCO2 ABG Hemoglobin ABG Oxyhemoglobin ABG Sodium ABG Chloride ABG Glucose Oxyhemoglobin Sodium Potassium Chloride Carbon Dioxide BUN 29 H Creatinine Glucose POC Glucose 107 H Lactic Acid Calcium Phosphorus Magnesium AST ALT Lactate Dehydrogenase Total Bilirubin Direct Bilirubin CK-MB (CK-2) C-Reactive Protein NT-Pro-B Natriuret Pep Total Protein Albumin Arterial Blood Glucose Urine WBC (Auto) Urine Creatinine 11/26/19 11/27/19 11/27/19 17:11 01:53 04:11 WBC RBC Hgb Hct MCHC RDW MCV MCH Lymph % (Auto) Mineral % (Auto) Mineral # Eos # Lymph # (Auto) Mineral # (Auto) Eos # (Auto) Seg Neutrophils % Seg Neuts % (Manual) Baso # (Auto) Lymphocytes % (Manual) Monocytes % (Manual) Eosinophils % (Manual) Basophils % (Manual) Seg Neutrophils # Seg Neutrophils # Man Lymphocytes # (Manual) Monocytes # (Manual) Eosinophils # (Manual) Nucleated RBC % Basophils # (Manual) PT INR APTT Heparin Anti-Xa Level ABG pH POC ABG pO2 ABG pO2 ABG HCO3 29.2 H ABG O2 Saturation ABG Base Excess 3.4 H POC ABG pCO2 ABG Hemoglobin 13.3 L ABG Oxyhemoglobin ABG Sodium ABG Chloride ABG Glucose Oxyhemoglobin 94.5 L Sodium Potassium Chloride Carbon Dioxide BUN Creatinine Glucose POC Glucose 113 H 108 H Lactic Acid Calcium Phosphorus Magnesium AST ALT Lactate Dehydrogenase Total Bilirubin Direct Bilirubin CK-MB (CK-2) C-Reactive Protein NT-Pro-B Natriuret Pep Total Protein Albumin Arterial Blood Glucose Urine WBC (Auto) Urine Creatinine 11/27/19 11/28/19 11/28/19 05:27 05:00 05:25 WBC RBC Hgb Hct MCHC RDW MCV MCH Lymph % (Auto) Mineral % (Auto) Mineral # Eos # Lymph # (Auto) Mineral # (Auto) Eos # (Auto) Seg Neutrophils % Seg Neuts % (Manual) Baso # (Auto) Lymphocytes % (Manual) Monocytes % (Manual) Eosinophils % (Manual) Basophils % (Manual) Seg Neutrophils # Seg Neutrophils # Man Lymphocytes # (Manual) Monocytes # (Manual) Eosinophils # (Manual) Nucleated RBC % Basophils # (Manual) PT INR APTT Heparin Anti-Xa Level ABG pH POC ABG pO2 68.1 L ABG pO2 ABG HCO3 ABG O2 Saturation ABG Base Excess POC ABG pCO2 ABG Hemoglobin ABG Oxyhemoglobin 91.2 L ABG Sodium ABG Chloride ABG Glucose Oxyhemoglobin Sodium Potassium Chloride Carbon Dioxide BUN Creatinine Glucose POC Glucose 111 H 110 H Lactic Acid Calcium Phosphorus Magnesium AST ALT Lactate Dehydrogenase Total Bilirubin Direct Bilirubin CK-MB (CK-2) C-Reactive Protein NT-Pro-B Natriuret Pep Total Protein Albumin Arterial Blood Glucose Urine WBC (Auto) Urine Creatinine 11/28/19 11/28/19 11/28/19 12:08 13:47 13:47 WBC 11.3 H RBC Hgb Hct MCHC RDW 16.1 H MCV MCH Lymph % (Auto) Mineral % (Auto) 9.9 H Mineral # 1.1 H Eos # Lymph # (Auto) Mineral # (Auto) Eos # (Auto) Seg Neutrophils % 71.4 H Seg Neuts % (Manual) Baso # (Auto) Lymphocytes % (Manual) Monocytes % (Manual) Eosinophils % (Manual) Basophils % (Manual) Seg Neutrophils # 8.1 H Seg Neutrophils # Man Lymphocytes # (Manual) Monocytes # (Manual) Eosinophils # (Manual) Nucleated RBC % Basophils # (Manual) PT INR APTT Heparin Anti-Xa Level ABG pH POC ABG pO2 ABG pO2 ABG HCO3 ABG O2 Saturation ABG Base Excess POC ABG pCO2 ABG Hemoglobin ABG Oxyhemoglobin ABG Sodium ABG Chloride ABG Glucose Oxyhemoglobin Sodium Potassium Chloride Carbon Dioxide BUN 23 H Creatinine Glucose 123 H POC Glucose 112 H Lactic Acid Calcium Phosphorus Magnesium AST ALT Lactate Dehydrogenase Total Bilirubin Direct Bilirubin CK-MB (CK-2) C-Reactive Protein NT-Pro-B Natriuret Pep Total Protein Albumin 3.7 L Arterial Blood Glucose Urine WBC (Auto) Urine Creatinine 11/28/19 11/29/19 11/29/19 17:26 03:55 17:04 WBC RBC Hgb Hct MCHC RDW MCV MCH Lymph % (Auto) Mineral % (Auto) Mineral # Eos # Lymph # (Auto) Mineral # (Auto) Eos # (Auto) Seg Neutrophils % Seg Neuts % (Manual) Baso # (Auto) Lymphocytes % (Manual) Monocytes % (Manual) Eosinophils % (Manual) Basophils % (Manual) Seg Neutrophils # Seg Neutrophils # Man Lymphocytes # (Manual) Monocytes # (Manual) Eosinophils # (Manual) Nucleated RBC % Basophils # (Manual) PT INR APTT Heparin Anti-Xa Level ABG pH POC ABG pO2 ABG pO2 65.7 L ABG HCO3 28.3 H ABG O2 Saturation 93.9 L ABG Base Excess 3.6 H POC ABG pCO2 ABG Hemoglobin 13.3 L ABG Oxyhemoglobin ABG Sodium ABG Chloride ABG Glucose Oxyhemoglobin 91.5 L Sodium Potassium Chloride Carbon Dioxide BUN Creatinine Glucose POC Glucose 123 H 119 H Lactic Acid Calcium Phosphorus Magnesium AST ALT Lactate Dehydrogenase Total Bilirubin Direct Bilirubin CK-MB (CK-2) C-Reactive Protein NT-Pro-B Natriuret Pep Total Protein Albumin Arterial Blood Glucose Urine WBC (Auto) Urine Creatinine 11/30/19 11/30/1911/29/20 04:17 04:17 04:56 WBC 13.4 H RBC Hgb Hct MCHC RDW 15.6 H MCV MCH Lymph % (Auto) Mineral % (Auto) Mineral # Eos # Lymph # (Auto) Mineral # (Auto) Eos # (Auto) Seg Neutrophils % Seg Neuts % (Manual) Baso # (Auto) Lymphocytes % (Manual) Monocytes % (Manual) Eosinophils % (Manual) Basophils % (Manual) Seg Neutrophils # Seg Neutrophils # Man Lymphocytes # (Manual) Monocytes # (Manual) Eosinophils # (Manual) Nucleated RBC % Basophils # (Manual) PT INR APTT Heparin Anti-Xa Level ABG pH POC ABG pO2 ABG pO2 56.3 L ABG HCO3 29.3 H ABG O2 Saturation 91.5 L ABG Base Excess 4.7 H POC ABG pCO2 ABG Hemoglobin 12.1 L ABG Oxyhemoglobin ABG Sodium ABG Chloride ABG Glucose Oxyhemoglobin 89.2 L Sodium 147 H Potassium Chloride Carbon Dioxide BUN 30 H Creatinine Glucose 124 H POC Glucose Lactic Acid Calcium Phosphorus Magnesium AST ALT Lactate Dehydrogenase Total Bilirubin Direct Bilirubin CK-MB (CK-2) C-Reactive Protein NT-Pro-B Natriuret Pep Total Protein Albumin 3.8 L Arterial Blood Glucose Urine WBC (Auto) Urine Creatinine 11/30/19 11/30/19 11/30/19 05:51 11:54 18:17 WBC RBC Hgb Hct MCHC RDW MCV MCH Lymph % (Auto) Mineral % (Auto) Mineral # Eos # Lymph # (Auto) Mineral # (Auto) Eos # (Auto) Seg Neutrophils % Seg Neuts % (Manual) Baso # (Auto) Lymphocytes % (Manual) Monocytes % (Manual) Eosinophils % (Manual) Basophils % (Manual) Seg Neutrophils # Seg Neutrophils # Man Lymphocytes # (Manual) Monocytes # (Manual) Eosinophils # (Manual) Nucleated RBC % Basophils # (Manual) PT INR APTT Heparin Anti-Xa Level ABG pH POC ABG pO2 ABG pO2 ABG HCO3 ABG O2 Saturation ABG Base Excess POC ABG pCO2 ABG Hemoglobin ABG Oxyhemoglobin ABG Sodium ABG Chloride ABG Glucose Oxyhemoglobin Sodium Potassium Chloride Carbon Dioxide BUN Creatinine Glucose POC Glucose 127 H 115 H 143 H Lactic Acid Calcium Phosphorus Magnesium AST ALT Lactate Dehydrogenase Total Bilirubin Direct Bilirubin CK-MB (CK-2) C-Reactive Protein NT-Pro-B Natriuret Pep Total Protein Albumin Arterial Blood Glucose Urine WBC (Auto) Urine Creatinine 12/01/19 12/01/19 12/01/19 01:18 05:22 12:16 WBC RBC Hgb Hct MCHC RDW MCV MCH Lymph % (Auto) Mineral % (Auto) Mineral # Eos # Lymph # (Auto) Mineral # (Auto) Eos # (Auto) Seg Neutrophils % Seg Neuts % (Manual) Baso # (Auto) Lymphocytes % (Manual) Monocytes % (Manual) Eosinophils % (Manual) Basophils % (Manual) Seg Neutrophils # Seg Neutrophils # Man Lymphocytes # (Manual) Monocytes # (Manual) Eosinophils # (Manual) Nucleated RBC % Basophils # (Manual) PT INR APTT Heparin Anti-Xa Level ABG pH POC ABG pO2 ABG pO2 ABG HCO3 ABG O2 Saturation ABG Base Excess POC ABG pCO2 ABG Hemoglobin ABG Oxyhemoglobin ABG Sodium ABG Chloride ABG Glucose Oxyhemoglobin Sodium Potassium 3.5 L Chloride 107.8 H Carbon Dioxide BUN 37 H Creatinine Glucose 157 H POC Glucose 118 H 148 H Lactic Acid Calcium 8.2 L D Phosphorus Magnesium AST 48 H ALT 60 H Lactate Dehydrogenase 194 H Total Bilirubin Direct Bilirubin CK-MB (CK-2) C-Reactive Protein 8.50 H NT-Pro-B Natriuret Pep Total Protein 5.5 L Albumin 2.8 L Arterial Blood Glucose Urine WBC (Auto) Urine Creatinine 12/01/19 12/02/19 12/02/19 18:04 00:05 05:16 WBC 11.4 H RBC Hgb Hct MCHC RDW 15.9 H MCV MCH Lymph % (Auto) Mineral % (Auto) 9.9 H Mineral # 1.1 H Eos # Lymph # (Auto) Mineral # (Auto) Eos # (Auto) Seg Neutrophils % 70.3 H Seg Neuts % (Manual) Baso # (Auto) Lymphocytes % (Manual) Monocytes % (Manual) Eosinophils % (Manual) Basophils % (Manual) Seg Neutrophils # 8.0 H Seg Neutrophils # Man Lymphocytes # (Manual) Monocytes # (Manual) Eosinophils # (Manual) Nucleated RBC % Basophils # (Manual) PT INR APTT Heparin Anti-Xa Level ABG pH POC ABG pO2 ABG pO2 ABG HCO3 ABG O2 Saturation ABG Base Excess POC ABG pCO2 ABG Hemoglobin ABG Oxyhemoglobin ABG Sodium ABG Chloride ABG Glucose Oxyhemoglobin Sodium Potassium Chloride Carbon Dioxide BUN Creatinine Glucose POC Glucose 143 H 107 H Lactic Acid Calcium Phosphorus Magnesium AST ALT Lactate Dehydrogenase Total Bilirubin Direct Bilirubin CK-MB (CK-2) C-Reactive Protein NT-Pro-B Natriuret Pep Total Protein Albumin Arterial Blood Glucose Urine WBC (Auto) Urine Creatinine 12/02/19 12/02/19 12/02/19 05:16 06:03 11:52 WBC RBC Hgb Hct MCHC RDW MCV MCH Lymph % (Auto) Mineral % (Auto) Mineral # Eos # Lymph # (Auto) Mineral # (Auto) Eos # (Auto) Seg Neutrophils % Seg Neuts % (Manual) Baso # (Auto) Lymphocytes % (Manual) Monocytes % (Manual) Eosinophils % (Manual) Basophils % (Manual) Seg Neutrophils # Seg Neutrophils # Man Lymphocytes # (Manual) Monocytes # (Manual) Eosinophils # (Manual) Nucleated RBC % Basophils # (Manual) PT INR APTT Heparin Anti-Xa Level ABG pH POC ABG pO2 ABG pO2 ABG HCO3 ABG O2 Saturation ABG Base Excess POC ABG pCO2 ABG Hemoglobin ABG Oxyhemoglobin ABG Sodium ABG Chloride ABG Glucose Oxyhemoglobin Sodium 146 H Potassium Chloride Carbon Dioxide BUN 28 H Creatinine Glucose 123 H POC Glucose 110 H 152 H Lactic Acid Calcium Phosphorus Magnesium AST ALT Lactate Dehydrogenase Total Bilirubin Direct Bilirubin CK-MB (CK-2) C-Reactive Protein NT-Pro-B Natriuret Pep Total Protein Albumin Arterial Blood Glucose Urine WBC (Auto) Urine Creatinine 12/02/19 12/02/19 12/02/19 12:58 17:58 23:36 WBC RBC Hgb Hct MCHC RDW MCV MCH Lymph % (Auto) Mineral % (Auto) Mineral # Eos # Lymph # (Auto) Mineral # (Auto) Eos # (Auto) Seg Neutrophils % Seg Neuts % (Manual) Baso # (Auto) Lymphocytes % (Manual) Monocytes % (Manual) Eosinophils % (Manual) Basophils % (Manual) Seg Neutrophils # Seg Neutrophils # Man Lymphocytes # (Manual) Monocytes # (Manual) Eosinophils # (Manual) Nucleated RBC % Basophils # (Manual) PT INR APTT Heparin Anti-Xa Level ABG pH POC ABG pO2 78.1 L ABG pO2 ABG HCO3 ABG O2 Saturation ABG Base Excess POC ABG pCO2 ABG Hemoglobin ABG Oxyhemoglobin ABG Sodium ABG Chloride ABG Glucose Oxyhemoglobin Sodium Potassium Chloride Carbon Dioxide BUN Creatinine Glucose POC Glucose 120 H 123 H Lactic Acid Calcium Phosphorus Magnesium AST ALT Lactate Dehydrogenase Total Bilirubin Direct Bilirubin CK-MB (CK-2) C-Reactive Protein NT-Pro-B Natriuret Pep Total Protein Albumin Arterial Blood Glucose Urine WBC (Auto) Urine Creatinine 12/03/19 12/03/19 12/03/19 06:03 06:14 11:46 WBC RBC Hgb Hct MCHC RDW MCV MCH Lymph % (Auto) Mineral % (Auto) Mineral # Eos # Lymph # (Auto) Mineral # (Auto) Eos # (Auto) Seg Neutrophils % Seg Neuts % (Manual) Baso # (Auto) Lymphocytes % (Manual) Monocytes % (Manual) Eosinophils % (Manual) Basophils % (Manual) Seg Neutrophils # Seg Neutrophils # Man Lymphocytes # (Manual) Monocytes # (Manual) Eosinophils # (Manual) Nucleated RBC % Basophils # (Manual) PT INR APTT Heparin Anti-Xa Level ABG pH POC ABG pO2 ABG pO2 ABG HCO3 ABG O2 Saturation ABG Base Excess POC ABG pCO2 ABG Hemoglobin ABG Oxyhemoglobin ABG Sodium ABG Chloride ABG Glucose Oxyhemoglobin Sodium Potassium Chloride Carbon Dioxide BUN Creatinine Glucose POC Glucose 142 H 130 H Lactic Acid Calcium Phosphorus Magnesium AST ALT Lactate Dehydrogenase Total Bilirubin Direct Bilirubin CK-MB (CK-2) C-Reactive Protein NT-Pro-B Natriuret Pep Total Protein Albumin Arterial Blood Glucose Urine WBC (Auto) 8.0 H Urine Creatinine 12/03/19 12/03/19 12/04/19 15:50 17:39 00:04 WBC RBC Hgb Hct MCHC RDW MCV MCH Lymph % (Auto) Mineral % (Auto) Mineral # Eos # Lymph # (Auto) Mineral # (Auto) Eos # (Auto) Seg Neutrophils % Seg Neuts % (Manual) Baso # (Auto) Lymphocytes % (Manual) Monocytes % (Manual) Eosinophils % (Manual) Basophils % (Manual) Seg Neutrophils # Seg Neutrophils # Man Lymphocytes # (Manual) Monocytes # (Manual) Eosinophils # (Manual) Nucleated RBC % Basophils # (Manual) PT INR APTT Heparin Anti-Xa Level ABG pH POC ABG pO2 ABG pO2 ABG HCO3 ABG O2 Saturation ABG Base Excess POC ABG pCO2 ABG Hemoglobin ABG Oxyhemoglobin ABG Sodium ABG Chloride ABG Glucose Oxyhemoglobin Sodium Potassium Chloride Carbon Dioxide BUN Creatinine Glucose POC Glucose 146 H 133 H Lactic Acid Calcium Phosphorus 2.40 L Magnesium AST ALT Lactate Dehydrogenase Total Bilirubin Direct Bilirubin CK-MB (CK-2) C-Reactive Protein NT-Pro-B Natriuret Pep Total Protein Albumin Arterial Blood Glucose Urine WBC (Auto) Urine Creatinine 12/04/19 12/04/19 12/04/19 03:58 03:58 05:22 WBC 12.5 H RBC Hgb 11.2 L Hct 35.2 L MCHC RDW 16.0 H MCV MCH Lymph % (Auto) Mineral % (Auto) 9.6 H Mineral # 1.2 H Eos # 0.5 H Lymph # (Auto) Mineral # (Auto) Eos # (Auto) Seg Neutrophils % Seg Neuts % (Manual) Baso # (Auto) Lymphocytes % (Manual) Monocytes % (Manual) Eosinophils % (Manual) Basophils % (Manual) Seg Neutrophils # 8.6 H Seg Neutrophils # Man Lymphocytes # (Manual) Monocytes # (Manual) Eosinophils # (Manual) Nucleated RBC % Basophils # (Manual) PT INR APTT Heparin Anti-Xa Level ABG pH POC ABG pO2 ABG pO2 ABG HCO3 ABG O2 Saturation ABG Base Excess POC ABG pCO2 ABG Hemoglobin ABG Oxyhemoglobin ABG Sodium ABG Chloride ABG Glucose Oxyhemoglobin Sodium 146 H Potassium Chloride 108.6 H Carbon Dioxide BUN 30 H Creatinine 0.7 L Glucose 121 H POC Glucose 132 H Lactic Acid Calcium Phosphorus Magnesium AST ALT Lactate Dehydrogenase Total Bilirubin Direct Bilirubin CK-MB (CK-2) C-Reactive Protein NT-Pro-B Natriuret Pep Total Protein Albumin Arterial Blood Glucose Urine WBC (Auto) Urine Creatinine 12/04/19 12/04/19 12/05/19 13:26 18:43 00:19 WBC RBC Hgb Hct MCHC RDW MCV MCH Lymph % (Auto) Mineral % (Auto) Mineral # Eos # Lymph # (Auto) Mineral # (Auto) Eos # (Auto) Seg Neutrophils % Seg Neuts % (Manual) Baso # (Auto) Lymphocytes % (Manual) Monocytes % (Manual) Eosinophils % (Manual) Basophils % (Manual) Seg Neutrophils # Seg Neutrophils # Man Lymphocytes # (Manual) Monocytes # (Manual) Eosinophils # (Manual) Nucleated RBC % Basophils # (Manual) PT INR APTT Heparin Anti-Xa Level ABG pH POC ABG pO2 ABG pO2 ABG HCO3 ABG O2 Saturation ABG Base Excess POC ABG pCO2 ABG Hemoglobin ABG Oxyhemoglobin ABG Sodium ABG Chloride ABG Glucose Oxyhemoglobin Sodium Potassium Chloride Carbon Dioxide BUN Creatinine Glucose POC Glucose 185 H 156 H 150 H Lactic Acid Calcium Phosphorus Magnesium AST ALT Lactate Dehydrogenase Total Bilirubin Direct Bilirubin CK-MB (CK-2) C-Reactive Protein NT-Pro-B Natriuret Pep Total Protein Albumin Arterial Blood Glucose Urine WBC (Auto) Urine Creatinine 12/05/19 12/05/19 12/05/19 03:37 03:37 05:14 WBC 16.3 H RBC Hgb 11.4 L Hct MCHC RDW 15.6 H MCV MCH Lymph % (Auto) 9.9 L Mineral % (Auto) 9.7 H Mineral # 1.6 H Eos # Lymph # (Auto) Mineral # (Auto) Eos # (Auto) Seg Neutrophils % 78.0 H Seg Neuts % (Manual) Baso # (Auto) Lymphocytes % (Manual) Monocytes % (Manual) Eosinophils % (Manual) Basophils % (Manual) Seg Neutrophils # 12.7 H Seg Neutrophils # Man Lymphocytes # (Manual) Monocytes # (Manual) Eosinophils # (Manual) Nucleated RBC % Basophils # (Manual) PT INR APTT Heparin Anti-Xa Level ABG pH POC ABG pO2 ABG pO2 ABG HCO3 ABG O2 Saturation ABG Base Excess POC ABG pCO2 ABG Hemoglobin ABG Oxyhemoglobin ABG Sodium ABG Chloride ABG Glucose Oxyhemoglobin Sodium 146 H Potassium Chloride 107.2 H Carbon Dioxide BUN 27 H Creatinine 0.7 L Glucose 171 H POC Glucose 168 H Lactic Acid Calcium Phosphorus Magnesium AST ALT Lactate Dehydrogenase Total Bilirubin Direct Bilirubin CK-MB (CK-2) C-Reactive Protein NT-Pro-B Natriuret Pep Total Protein Albumin Arterial Blood Glucose Urine WBC (Auto) Urine Creatinine 12/05/19 12/05/19 12/05/19 12:31 18:10 23:58 WBC RBC Hgb Hct MCHC RDW MCV MCH Lymph % (Auto) Mineral % (Auto) Mineral # Eos # Lymph # (Auto) Mineral # (Auto) Eos # (Auto) Seg Neutrophils % Seg Neuts % (Manual) Baso # (Auto) Lymphocytes % (Manual) Monocytes % (Manual) Eosinophils % (Manual) Basophils % (Manual) Seg Neutrophils # Seg Neutrophils # Man Lymphocytes # (Manual) Monocytes # (Manual) Eosinophils # (Manual) Nucleated RBC % Basophils # (Manual) PT INR APTT Heparin Anti-Xa Level ABG pH POC ABG pO2 ABG pO2 ABG HCO3 ABG O2 Saturation ABG Base Excess POC ABG pCO2 ABG Hemoglobin ABG Oxyhemoglobin ABG Sodium ABG Chloride ABG Glucose Oxyhemoglobin Sodium Potassium Chloride Carbon Dioxide BUN Creatinine Glucose POC Glucose 159 H 198 H 115 H Lactic Acid Calcium Phosphorus Magnesium AST ALT Lactate Dehydrogenase Total Bilirubin Direct Bilirubin CK-MB (CK-2) C-Reactive Protein NT-Pro-B Natriuret Pep Total Protein Albumin Arterial Blood Glucose Urine WBC (Auto) Urine Creatinine 12/06/19 12/06/19 12/06/19 05:24 05:24 05:25 WBC 14.9 H RBC Hgb 10.8 L Hct 34.0 L MCHC RDW 15.6 H MCV MCH Lymph % (Auto) 10.7 L Mineral % (Auto) 8.3 H Mineral # 1.2 H Eos # Lymph # (Auto) Mineral # (Auto) Eos # (Auto) Seg Neutrophils % 78.7 H Seg Neuts % (Manual) Baso # (Auto) Lymphocytes % (Manual) Monocytes % (Manual) Eosinophils % (Manual) Basophils % (Manual) Seg Neutrophils # 11.7 H Seg Neutrophils # Man Lymphocytes # (Manual) Monocytes # (Manual) Eosinophils # (Manual) Nucleated RBC % Basophils # (Manual) PT INR APTT Heparin Anti-Xa Level ABG pH POC ABG pO2 ABG pO2 ABG HCO3 ABG O2 Saturation ABG Base Excess POC ABG pCO2 ABG Hemoglobin ABG Oxyhemoglobin ABG Sodium ABG Chloride ABG Glucose Oxyhemoglobin Sodium 148 H Potassium 5.1 H Chloride 107.6 H Carbon Dioxide BUN 27 H Creatinine 0.7 L Glucose 155 H POC Glucose 157 H Lactic Acid Calcium Phosphorus Magnesium AST ALT Lactate Dehydrogenase Total Bilirubin Direct Bilirubin CK-MB (CK-2) C-Reactive Protein NT-Pro-B Natriuret Pep Total Protein Albumin Arterial Blood Glucose Urine WBC (Auto) Urine Creatinine 12/07/19 12/07/19 12/07/19 00:13 05:34 11:33 WBC RBC Hgb Hct MCHC RDW MCV MCH Lymph % (Auto) Mineral % (Auto) Mineral # Eos # Lymph # (Auto) Mineral # (Auto) Eos # (Auto) Seg Neutrophils % Seg Neuts % (Manual) Baso # (Auto) Lymphocytes % (Manual) Monocytes % (Manual) Eosinophils % (Manual) Basophils % (Manual) Seg Neutrophils # Seg Neutrophils # Man Lymphocytes # (Manual) Monocytes # (Manual) Eosinophils # (Manual) Nucleated RBC % Basophils # (Manual) PT INR APTT Heparin Anti-Xa Level ABG pH POC ABG pO2 ABG pO2 ABG HCO3 ABG O2 Saturation ABG Base Excess POC ABG pCO2 ABG Hemoglobin ABG Oxyhemoglobin ABG Sodium ABG Chloride ABG Glucose Oxyhemoglobin Sodium Potassium Chloride Carbon Dioxide BUN Creatinine Glucose POC Glucose 142 H 111 H 169 H Lactic Acid Calcium Phosphorus Magnesium AST ALT Lactate Dehydrogenase Total Bilirubin Direct Bilirubin CK-MB (CK-2) C-Reactive Protein NT-Pro-B Natriuret Pep Total Protein Albumin Arterial Blood Glucose Urine WBC (Auto) Urine Creatinine 12/07/19 12/07/19 12/07/19 12:41 13:25 18:19 WBC 12.4 H RBC 3.53 L Hgb 10.2 L Hct 32.1 L MCHC RDW 15.3 H MCV MCH Lymph % (Auto) 10.6 L Mineral % (Auto) 7.8 H Mineral # 1.0 H Eos # Lymph # (Auto) Mineral # (Auto) Eos # (Auto) Seg Neutrophils % 77.6 H Seg Neuts % (Manual) Baso # (Auto) Lymphocytes % (Manual) Monocytes % (Manual) Eosinophils % (Manual) Basophils % (Manual) Seg Neutrophils # 9.6 H Seg Neutrophils # Man Lymphocytes # (Manual) Monocytes # (Manual) Eosinophils # (Manual) Nucleated RBC % Basophils # (Manual) PT INR APTT Heparin Anti-Xa Level ABG pH POC ABG pO2 ABG pO2 ABG HCO3 ABG O2 Saturation ABG Base Excess POC ABG pCO2 ABG Hemoglobin ABG Oxyhemoglobin ABG Sodium ABG Chloride ABG Glucose Oxyhemoglobin Sodium 149 H Potassium Chloride 108.4 H Carbon Dioxide BUN 26 H Creatinine 0.6 L Glucose 149 H POC Glucose 164 H Lactic Acid Calcium Phosphorus Magnesium 2.60 H AST 121 H ALT 145 H Lactate Dehydrogenase Total Bilirubin Direct Bilirubin CK-MB (CK-2) C-Reactive Protein NT-Pro-B Natriuret Pep Total Protein Albumin 2.6 L Arterial Blood Glucose Urine WBC (Auto) Urine Creatinine 0912/08/19 12/08/19 22:25 00:02 03:55 WBC 13.3 H RBC 3.40 L Hgb 9.7 L Hct 30.8 L MCHC 31 L RDW 15.5 H MCV MCH Lymph % (Auto) Mineral % (Auto) 8.1 H Mineral # 1.1 H Eos # Lymph # (Auto) Mineral # (Auto) Eos # (Auto) Seg Neutrophils % 73.0 H Seg Neuts % (Manual) Baso # (Auto) Lymphocytes % (Manual) Monocytes % (Manual) Eosinophils % (Manual) Basophils % (Manual) Seg Neutrophils # 9.7 H Seg Neutrophils # Man Lymphocytes # (Manual) Monocytes # (Manual) Eosinophils # (Manual) Nucleated RBC % Basophils # (Manual) PT INR APTT Heparin Anti-Xa Level 0.12 L ABG pH POC ABG pO2 ABG pO2 ABG HCO3 ABG O2 Saturation ABG Base Excess POC ABG pCO2 ABG Hemoglobin ABG Oxyhemoglobin ABG Sodium ABG Chloride ABG Glucose Oxyhemoglobin Sodium Potassium Chloride Carbon Dioxide BUN Creatinine Glucose POC Glucose 151 H Lactic Acid Calcium Phosphorus Magnesium AST ALT Lactate Dehydrogenase Total Bilirubin Direct Bilirubin CK-MB (CK-2) C-Reactive Protein NT-Pro-B Natriuret Pep Total Protein Albumin Arterial Blood Glucose Urine WBC (Auto) Urine Creatinine 12/08/19 12/08/19 12/08/19 03:55 05:21 06:01 WBC RBC Hgb Hct MCHC RDW MCV MCH Lymph % (Auto) Mineral % (Auto) Mineral # Eos # Lymph # (Auto) Mineral # (Auto) Eos # (Auto) Seg Neutrophils % Seg Neuts % (Manual) Baso # (Auto) Lymphocytes % (Manual) Monocytes % (Manual) Eosinophils % (Manual) Basophils % (Manual) Seg Neutrophils # Seg Neutrophils # Man Lymphocytes # (Manual) Monocytes # (Manual) Eosinophils # (Manual) Nucleated RBC % Basophils # (Manual) PT INR APTT Heparin Anti-Xa Level 0.20 L ABG pH POC ABG pO2 ABG pO2 ABG HCO3 ABG O2 Saturation ABG Base Excess POC ABG pCO2 ABG Hemoglobin ABG Oxyhemoglobin ABG Sodium ABG Chloride ABG Glucose Oxyhemoglobin Sodium 149 H Potassium Chloride 108.0 H Carbon Dioxide BUN 28 H Creatinine 0.6 L Glucose 144 H POC Glucose 143 H Lactic Acid Calcium Phosphorus Magnesium AST 98 H ALT 145 H Lactate Dehydrogenase Total Bilirubin Direct Bilirubin CK-MB (CK-2) C-Reactive Protein NT-Pro-B Natriuret Pep Total Protein 6.0 L Albumin 2.4 L Arterial Blood Glucose Urine WBC (Auto) Urine Creatinine 12/08/19 12/08/19 12/08/19 12:08 18:11 23:53 WBC RBC Hgb Hct MCHC RDW MCV MCH Lymph % (Auto) Mineral % (Auto) Mineral # Eos # Lymph # (Auto) Mineral # (Auto) Eos # (Auto) Seg Neutrophils % Seg Neuts % (Manual) Baso # (Auto) Lymphocytes % (Manual) Monocytes % (Manual) Eosinophils % (Manual) Basophils % (Manual) Seg Neutrophils # Seg Neutrophils # Man Lymphocytes # (Manual) Monocytes # (Manual) Eosinophils # (Manual) Nucleated RBC % Basophils # (Manual) PT INR APTT Heparin Anti-Xa Level ABG pH POC ABG pO2 ABG pO2 ABG HCO3 ABG O2 Saturation ABG Base Excess POC ABG pCO2 ABG Hemoglobin ABG Oxyhemoglobin ABG Sodium ABG Chloride ABG Glucose Oxyhemoglobin Sodium Potassium Chloride Carbon Dioxide BUN Creatinine Glucose POC Glucose 172 H 122 H 162 H Lactic Acid Calcium Phosphorus Magnesium AST ALT Lactate Dehydrogenase Total Bilirubin Direct Bilirubin CK-MB (CK-2) C-Reactive Protein NT-Pro-B Natriuret Pep Total Protein Albumin Arterial Blood Glucose Urine WBC (Auto) Urine Creatinine 12/09/19 12/09/19 12/09/19 04:03 04:03 05:53 WBC RBC Hgb 9.1 L Hct 28.9 L MCHC RDW MCV MCH Lymph % (Auto) Mineral % (Auto) Mineral # Eos # Lymph # (Auto) Mineral # (Auto) Eos # (Auto) Seg Neutrophils % Seg Neuts % (Manual) Baso # (Auto) Lymphocytes % (Manual) Monocytes % (Manual) Eosinophils % (Manual) Basophils % (Manual) Seg Neutrophils # Seg Neutrophils # Man Lymphocytes # (Manual) Monocytes # (Manual) Eosinophils # (Manual) Nucleated RBC % Basophils # (Manual) PT INR APTT Heparin Anti-Xa Level 0.15 L ABG pH POC ABG pO2 ABG pO2 ABG HCO3 ABG O2 Saturation ABG Base Excess POC ABG pCO2 ABG Hemoglobin ABG Oxyhemoglobin ABG Sodium ABG Chloride ABG Glucose Oxyhemoglobin Sodium Potassium Chloride Carbon Dioxide BUN Creatinine Glucose POC Glucose 124 H Lactic Acid Calcium Phosphorus Magnesium AST ALT Lactate Dehydrogenase Total Bilirubin Direct Bilirubin CK-MB (CK-2) C-Reactive Protein NT-Pro-B Natriuret Pep Total Protein Albumin Arterial Blood Glucose Urine WBC (Auto) Urine Creatinine 12/09/19 12/09/19 12/10/19 09:43 12:41 00:13 WBC RBC Hgb Hct MCHC RDW MCV MCH Lymph % (Auto) Mineral % (Auto) Mineral # Eos # Lymph # (Auto) Mineral # (Auto) Eos # (Auto) Seg Neutrophils % Seg Neuts % (Manual) Baso # (Auto) Lymphocytes % (Manual) Monocytes % (Manual) Eosinophils % (Manual) Basophils % (Manual) Seg Neutrophils # Seg Neutrophils # Man Lymphocytes # (Manual) Monocytes # (Manual) Eosinophils # (Manual) Nucleated RBC % Basophils # (Manual) PT INR APTT Heparin Anti-Xa Level ABG pH POC ABG pO2 ABG pO2 ABG HCO3 ABG O2 Saturation ABG Base Excess POC ABG pCO2 ABG Hemoglobin ABG Oxyhemoglobin ABG Sodium ABG Chloride ABG Glucose Oxyhemoglobin Sodium Potassium Chloride Carbon Dioxide BUN 25 H Creatinine 0.6 L Glucose 131 H POC Glucose 109 H 120 H Lactic Acid Calcium Phosphorus Magnesium AST ALT Lactate Dehydrogenase Total Bilirubin Direct Bilirubin CK-MB (CK-2) C-Reactive Protein NT-Pro-B Natriuret Pep Total Protein Albumin Arterial Blood Glucose Urine WBC (Auto) Urine Creatinine 12/10/19 12/10/19 12/10/19 04:14 04:14 12:00 WBC 13.3 H RBC 3.34 L Hgb 9.6 L Hct 30.4 L MCHC RDW 15.4 H MCV MCH Lymph % (Auto) Mineral % (Auto) Mineral # Eos # Lymph # (Auto) Mineral # (Auto) Eos # (Auto) Seg Neutrophils % Seg Neuts % (Manual) 75.0 H Baso # (Auto) Lymphocytes % (Manual) 13.0 L Monocytes % (Manual) 8.0 H Eosinophils % (Manual) Basophils % (Manual) 2.0 H Seg Neutrophils # Seg Neutrophils # Man 10.0 H Lymphocytes # (Manual) Monocytes # (Manual) 1.1 H Eosinophils # (Manual) Nucleated RBC % Basophils # (Manual) 0.3 H PT INR APTT Heparin Anti-Xa Level ABG pH POC ABG pO2 ABG pO2 ABG HCO3 ABG O2 Saturation ABG Base Excess POC ABG pCO2 ABG Hemoglobin ABG Oxyhemoglobin ABG Sodium ABG Chloride ABG Glucose Oxyhemoglobin Sodium 147 H Potassium Chloride 108.3 H Carbon Dioxide BUN 21 H Creatinine 0.6 L Glucose 104 H POC Glucose 133 H Lactic Acid Calcium Phosphorus Magnesium AST ALT Lactate Dehydrogenase Total Bilirubin Direct Bilirubin CK-MB (CK-2) C-Reactive Protein NT-Pro-B Natriuret Pep Total Protein Albumin Arterial Blood Glucose Urine WBC (Auto) Urine Creatinine 12/10/19 12/10/19 12/11/19 18:44 21:20 00:08 WBC 14.9 H RBC 3.36 L Hgb 9.6 L Hct 30.5 L MCHC RDW 15.4 H MCV MCH Lymph % (Auto) Mineral % (Auto) Mineral # Eos # Lymph # (Auto) Mineral # (Auto) Eos # (Auto) Seg Neutrophils % Seg Neuts % (Manual) Baso # (Auto) Lymphocytes % (Manual) Monocytes % (Manual) Eosinophils % (Manual) Basophils % (Manual) Seg Neutrophils # Seg Neutrophils # Man Lymphocytes # (Manual) Monocytes # (Manual) Eosinophils # (Manual) Nucleated RBC % Basophils # (Manual) PT INR APTT Heparin Anti-Xa Level ABG pH POC ABG pO2 ABG pO2 ABG HCO3 ABG O2 Saturation ABG Base Excess POC ABG pCO2 ABG Hemoglobin ABG Oxyhemoglobin ABG Sodium ABG Chloride ABG Glucose Oxyhemoglobin Sodium Potassium Chloride Carbon Dioxide BUN Creatinine Glucose POC Glucose 119 H 134 H Lactic Acid Calcium Phosphorus Magnesium AST ALT Lactate Dehydrogenase Total Bilirubin Direct Bilirubin CK-MB (CK-2) C-Reactive Protein NT-Pro-B Natriuret Pep Total Protein Albumin Arterial Blood Glucose Urine WBC (Auto) Urine Creatinine 12/11/19 12/11/19 12/11/19 03:54 07:28 08:36 WBC 11.9 H RBC 3.25 L Hgb 9.6 L Hct 29.2 L MCHC RDW 15.7 H MCV MCH Lymph % (Auto) Mineral % (Auto) Mineral # Eos # Lymph # (Auto) Mineral # (Auto) Eos # (Auto) Seg Neutrophils % Seg Neuts % (Manual) Baso # (Auto) Lymphocytes % (Manual) Monocytes % (Manual) Eosinophils % (Manual) Basophils % (Manual) Seg Neutrophils # Seg Neutrophils # Man Lymphocytes # (Manual) Monocytes # (Manual) Eosinophils # (Manual) Nucleated RBC % Basophils # (Manual) PT INR APTT Heparin Anti-Xa Level 0.10 L 0.16 L ABG pH POC ABG pO2 ABG pO2 ABG HCO3 ABG O2 Saturation ABG Base Excess POC ABG pCO2 ABG Hemoglobin ABG Oxyhemoglobin ABG Sodium ABG Chloride ABG Glucose Oxyhemoglobin Sodium Potassium Chloride Carbon Dioxide BUN Creatinine Glucose POC Glucose Lactic Acid Calcium Phosphorus Magnesium AST ALT Lactate Dehydrogenase Total Bilirubin Direct Bilirubin CK-MB (CK-2) C-Reactive Protein NT-Pro-B Natriuret Pep Total Protein Albumin Arterial Blood Glucose Urine WBC (Auto) Urine Creatinine 12/11/19 12/11/19 12/11/19 08:36 11:45 17:15 WBC RBC Hgb Hct MCHC RDW MCV MCH Lymph % (Auto) Mineral % (Auto) Mineral # Eos # Lymph # (Auto) Mineral # (Auto) Eos # (Auto) Seg Neutrophils % Seg Neuts % (Manual) Baso # (Auto) Lymphocytes % (Manual) Monocytes % (Manual) Eosinophils % (Manual) Basophils % (Manual) Seg Neutrophils # Seg Neutrophils # Man Lymphocytes # (Manual) Monocytes # (Manual) Eosinophils # (Manual) Nucleated RBC % Basophils # (Manual) PT INR APTT Heparin Anti-Xa Level ABG pH POC ABG pO2 ABG pO2 ABG HCO3 ABG O2 Saturation ABG Base Excess POC ABG pCO2 ABG Hemoglobin ABG Oxyhemoglobin ABG Sodium ABG Chloride ABG Glucose Oxyhemoglobin Sodium Potassium Chloride Carbon Dioxide BUN Creatinine 0.5 L Glucose 128 H POC Glucose 136 H 109 H Lactic Acid Calcium Phosphorus Magnesium AST ALT Lactate Dehydrogenase Total Bilirubin Direct Bilirubin CK-MB (CK-2) C-Reactive Protein NT-Pro-B Natriuret Pep Total Protein Albumin Arterial Blood Glucose Urine WBC (Auto) Urine Creatinine 12/12/19 12/12/19 12/12/19 00:03 05:53 05:53 WBC RBC Hgb 8.8 L Hct 27.6 L MCHC RDW MCV MCH Lymph % (Auto) Mineral % (Auto) Mineral # Eos # Lymph # (Auto) Mineral # (Auto) Eos # (Auto) Seg Neutrophils % Seg Neuts % (Manual) Baso # (Auto) Lymphocytes % (Manual) Monocytes % (Manual) Eosinophils % (Manual) Basophils % (Manual) Seg Neutrophils # Seg Neutrophils # Man Lymphocytes # (Manual) Monocytes # (Manual) Eosinophils # (Manual) Nucleated RBC % Basophils # (Manual) PT INR APTT Heparin Anti-Xa Level 0.22 L ABG pH POC ABG pO2 ABG pO2 ABG HCO3 ABG O2 Saturation ABG Base Excess POC ABG pCO2 ABG Hemoglobin ABG Oxyhemoglobin ABG Sodium ABG Chloride ABG Glucose Oxyhemoglobin Sodium Potassium Chloride Carbon Dioxide BUN Creatinine Glucose POC Glucose 116 H Lactic Acid Calcium Phosphorus Magnesium AST ALT Lactate Dehydrogenase Total Bilirubin Direct Bilirubin CK-MB (CK-2) C-Reactive Protein NT-Pro-B Natriuret Pep Total Protein Albumin Arterial Blood Glucose Urine WBC (Auto) Urine Creatinine 12/12/19 12/12/19 12/12/19 09:38 12:18 17:44 WBC RBC Hgb Hct MCHC RDW MCV MCH Lymph % (Auto) Mineral % (Auto) Mineral # Eos # Lymph # (Auto) Mineral # (Auto) Eos # (Auto) Seg Neutrophils % Seg Neuts % (Manual) Baso # (Auto) Lymphocytes % (Manual) Monocytes % (Manual) Eosinophils % (Manual) Basophils % (Manual) Seg Neutrophils # Seg Neutrophils # Man Lymphocytes # (Manual) Monocytes # (Manual) Eosinophils # (Manual) Nucleated RBC % Basophils # (Manual) PT INR APTT Heparin Anti-Xa Level ABG pH POC ABG pO2 ABG pO2 ABG HCO3 ABG O2 Saturation ABG Base Excess POC ABG pCO2 ABG Hemoglobin ABG Oxyhemoglobin ABG Sodium ABG Chloride ABG Glucose Oxyhemoglobin Sodium Potassium Chloride Carbon Dioxide BUN Creatinine Glucose POC Glucose 115 H 146 H 146 H Lactic Acid Calcium Phosphorus Magnesium AST ALT Lactate Dehydrogenase Total Bilirubin Direct Bilirubin CK-MB (CK-2) C-Reactive Protein NT-Pro-B Natriuret Pep Total Protein Albumin Arterial Blood Glucose Urine WBC (Auto) Urine Creatinine 12/12/19 12/13/19 12/13/19 23:33 05:32 05:32 WBC 13.1 H RBC 3.27 L Hgb 9.5 L Hct 29.3 L MCHC RDW 15.6 H MCV MCH Lymph % (Auto) Mineral % (Auto) Mineral # Eos # Lymph # (Auto) Mineral # (Auto) Eos # (Auto) Seg Neutrophils % Seg Neuts % (Manual) 74.0 H Baso # (Auto) Lymphocytes % (Manual) 8.0 L Monocytes % (Manual) 9.0 H Eosinophils % (Manual) 5.0 H Basophils % (Manual) Seg Neutrophils # Seg Neutrophils # Man 9.7 H Lymphocytes # (Manual) 1.0 L Monocytes # (Manual) 1.2 H Eosinophils # (Manual) 0.7 H Nucleated RBC % Basophils # (Manual) PT INR APTT Heparin Anti-Xa Level 0.20 L ABG pH POC ABG pO2 ABG pO2 ABG HCO3 ABG O2 Saturation ABG Base Excess POC ABG pCO2 ABG Hemoglobin ABG Oxyhemoglobin ABG Sodium ABG Chloride ABG Glucose Oxyhemoglobin Sodium Potassium Chloride Carbon Dioxide BUN Creatinine Glucose POC Glucose 126 H Lactic Acid Calcium Phosphorus Magnesium AST ALT Lactate Dehydrogenase Total Bilirubin Direct Bilirubin CK-MB (CK-2) C-Reactive Protein NT-Pro-B Natriuret Pep Total Protein Albumin Arterial Blood Glucose Urine WBC (Auto) Urine Creatinine 12/13/19 12/13/19 12/13/19 05:32 05:46 11:57 WBC RBC Hgb Hct MCHC RDW MCV MCH Lymph % (Auto) Mineral % (Auto) Mineral # Eos # Lymph # (Auto) Mineral # (Auto) Eos # (Auto) Seg Neutrophils % Seg Neuts % (Manual) Baso # (Auto) Lymphocytes % (Manual) Monocytes % (Manual) Eosinophils % (Manual) Basophils % (Manual) Seg Neutrophils # Seg Neutrophils # Man Lymphocytes # (Manual) Monocytes # (Manual) Eosinophils # (Manual) Nucleated RBC % Basophils # (Manual) PT INR APTT Heparin Anti-Xa Level ABG pH POC ABG pO2 ABG pO2 ABG HCO3 ABG O2 Saturation ABG Base Excess POC ABG pCO2 ABG Hemoglobin ABG Oxyhemoglobin ABG Sodium ABG Chloride ABG Glucose Oxyhemoglobin Sodium Potassium Chloride Carbon Dioxide 31 H BUN Creatinine 0.6 L Glucose 114 H POC Glucose 118 H 133 H Lactic Acid Calcium Phosphorus Magnesium AST ALT Lactate Dehydrogenase Total Bilirubin Direct Bilirubin CK-MB (CK-2) C-Reactive Protein NT-Pro-B Natriuret Pep Total Protein Albumin Arterial Blood Glucose Urine WBC (Auto) Urine Creatinine 12/13/19 12/13/19 12/14/19 17:44 23:46 05:32 WBC RBC Hgb Hct MCHC RDW MCV MCH Lymph % (Auto) Mineral % (Auto) Mineral # Eos # Lymph # (Auto) Mineral # (Auto) Eos # (Auto) Seg Neutrophils % Seg Neuts % (Manual) Baso # (Auto) Lymphocytes % (Manual) Monocytes % (Manual) Eosinophils % (Manual) Basophils % (Manual) Seg Neutrophils # Seg Neutrophils # Man Lymphocytes # (Manual) Monocytes # (Manual) Eosinophils # (Manual) Nucleated RBC % Basophils # (Manual) PT INR APTT Heparin Anti-Xa Level ABG pH POC ABG pO2 ABG pO2 ABG HCO3 ABG O2 Saturation ABG Base Excess POC ABG pCO2 ABG Hemoglobin ABG Oxyhemoglobin ABG Sodium ABG Chloride ABG Glucose Oxyhemoglobin Sodium Potassium Chloride Carbon Dioxide BUN Creatinine Glucose POC Glucose 161 H 126 H 139 H Lactic Acid Calcium Phosphorus Magnesium AST ALT Lactate Dehydrogenase Total Bilirubin Direct Bilirubin CK-MB (CK-2) C-Reactive Protein NT-Pro-B Natriuret Pep Total Protein Albumin Arterial Blood Glucose Urine WBC (Auto) Urine Creatinine 12/14/19 12/14/19 12/14/19 06:03 06:03 09:37 WBC RBC Hgb 9.6 L Hct 30.4 L MCHC RDW MCV MCH Lymph % (Auto) Mineral % (Auto) Mineral # Eos # Lymph # (Auto) Mineral # (Auto) Eos # (Auto) Seg Neutrophils % Seg Neuts % (Manual) Baso # (Auto) Lymphocytes % (Manual) Monocytes % (Manual) Eosinophils % (Manual) Basophils % (Manual) Seg Neutrophils # Seg Neutrophils # Man Lymphocytes # (Manual) Monocytes # (Manual) Eosinophils # (Manual) Nucleated RBC % Basophils # (Manual) PT INR APTT Heparin Anti-Xa Level 0.24 L ABG pH POC ABG pO2 ABG pO2 ABG HCO3 ABG O2 Saturation ABG Base Excess POC ABG pCO2 ABG Hemoglobin ABG Oxyhemoglobin ABG Sodium ABG Chloride ABG Glucose Oxyhemoglobin Sodium Potassium Chloride Carbon Dioxide BUN Creatinine 0.6 L Glucose 162 H POC Glucose Lactic Acid Calcium Phosphorus Magnesium AST 71 H ALT 118 H Lactate Dehydrogenase Total Bilirubin Direct Bilirubin CK-MB (CK-2) C-Reactive Protein NT-Pro-B Natriuret Pep Total Protein 6.2 L Albumin 2.3 L Arterial Blood Glucose Urine WBC (Auto) Urine Creatinine 12/14/19 12/14/19 12/15/19 12:06 18:18 00:19 WBC RBC Hgb Hct MCHC RDW MCV MCH Lymph % (Auto) Mineral % (Auto) Mineral # Eos # Lymph # (Auto) Mineral # (Auto) Eos # (Auto) Seg Neutrophils % Seg Neuts % (Manual) Baso # (Auto) Lymphocytes % (Manual) Monocytes % (Manual) Eosinophils % (Manual) Basophils % (Manual) Seg Neutrophils # Seg Neutrophils # Man Lymphocytes # (Manual) Monocytes # (Manual) Eosinophils # (Manual) Nucleated RBC % Basophils # (Manual) PT INR APTT Heparin Anti-Xa Level ABG pH POC ABG pO2 ABG pO2 ABG HCO3 ABG O2 Saturation ABG Base Excess POC ABG pCO2 ABG Hemoglobin ABG Oxyhemoglobin ABG Sodium ABG Chloride ABG Glucose Oxyhemoglobin Sodium Potassium Chloride Carbon Dioxide BUN Creatinine Glucose POC Glucose 147 H 166 H 123 H Lactic Acid Calcium Phosphorus Magnesium AST ALT Lactate Dehydrogenase Total Bilirubin Direct Bilirubin CK-MB (CK-2) C-Reactive Protein NT-Pro-B Natriuret Pep Total Protein Albumin Arterial Blood Glucose Urine WBC (Auto) Urine Creatinine 12/15/19 12/15/19 12/15/19 05:28 05:29 05:29 WBC 14.9 H RBC 3.19 L Hgb 9.1 L Hct 28.7 L MCHC RDW 16.0 H MCV MCH Lymph % (Auto) Mineral % (Auto) Mineral # Eos # Lymph # (Auto) Mineral # (Auto) Eos # (Auto) Seg Neutrophils % Seg Neuts % (Manual) Baso # (Auto) Lymphocytes % (Manual) Monocytes % (Manual) Eosinophils % (Manual) Basophils % (Manual) Seg Neutrophils # Seg Neutrophils # Man Lymphocytes # (Manual) Monocytes # (Manual) Eosinophils # (Manual) Nucleated RBC % Basophils # (Manual) PT INR APTT Heparin Anti-Xa Level 0.19 L ABG pH POC ABG pO2 ABG pO2 ABG HCO3 ABG O2 Saturation ABG Base Excess POC ABG pCO2 ABG Hemoglobin ABG Oxyhemoglobin ABG Sodium ABG Chloride ABG Glucose Oxyhemoglobin Sodium Potassium Chloride Carbon Dioxide BUN Creatinine 0.6 L Glucose 110 H POC Glucose Lactic Acid Calcium Phosphorus Magnesium AST ALT Lactate Dehydrogenase Total Bilirubin Direct Bilirubin CK-MB (CK-2) C-Reactive Protein NT-Pro-B Natriuret Pep Total Protein Albumin Arterial Blood Glucose Urine WBC (Auto) Urine Creatinine 12/15/19 12/15/19 12/15/19 05:53 11:50 17:26 WBC RBC Hgb Hct MCHC RDW MCV MCH Lymph % (Auto) Mineral % (Auto) Mineral # Eos # Lymph # (Auto) Mineral # (Auto) Eos # (Auto) Seg Neutrophils % Seg Neuts % (Manual) Baso # (Auto) Lymphocytes % (Manual) Monocytes % (Manual) Eosinophils % (Manual) Basophils % (Manual) Seg Neutrophils # Seg Neutrophils # Man Lymphocytes # (Manual) Monocytes # (Manual) Eosinophils # (Manual) Nucleated RBC % Basophils # (Manual) PT INR APTT Heparin Anti-Xa Level ABG pH POC ABG pO2 ABG pO2 ABG HCO3 ABG O2 Saturation ABG Base Excess POC ABG pCO2 ABG Hemoglobin ABG Oxyhemoglobin ABG Sodium ABG Chloride ABG Glucose Oxyhemoglobin Sodium Potassium Chloride Carbon Dioxide BUN Creatinine Glucose POC Glucose 119 H 132 H 128 H Lactic Acid Calcium Phosphorus Magnesium AST ALT Lactate Dehydrogenase Total Bilirubin Direct Bilirubin CK-MB (CK-2) C-Reactive Protein NT-Pro-B Natriuret Pep Total Protein Albumin Arterial Blood Glucose Urine WBC (Auto) Urine Creatinine 12/15/19 12/16/19 12/16/19 23:11 05:30 05:46 WBC RBC Hgb 8.8 L Hct 27.9 L MCHC RDW MCV MCH Lymph % (Auto) Mineral % (Auto) Mineral # Eos # Lymph # (Auto) Mineral # (Auto) Eos # (Auto) Seg Neutrophils % Seg Neuts % (Manual) Baso # (Auto) Lymphocytes % (Manual) Monocytes % (Manual) Eosinophils % (Manual) Basophils % (Manual) Seg Neutrophils # Seg Neutrophils # Man Lymphocytes # (Manual) Monocytes # (Manual) Eosinophils # (Manual) Nucleated RBC % Basophils # (Manual) PT INR APTT Heparin Anti-Xa Level ABG pH POC ABG pO2 ABG pO2 ABG HCO3 ABG O2 Saturation ABG Base Excess POC ABG pCO2 ABG Hemoglobin ABG Oxyhemoglobin ABG Sodium ABG Chloride ABG Glucose Oxyhemoglobin Sodium Potassium Chloride Carbon Dioxide BUN Creatinine Glucose POC Glucose 150 H 134 H Lactic Acid Calcium Phosphorus Magnesium AST ALT Lactate Dehydrogenase Total Bilirubin Direct Bilirubin CK-MB (CK-2) C-Reactive Protein NT-Pro-B Natriuret Pep Total Protein Albumin Arterial Blood Glucose Urine WBC (Auto) Urine Creatinine 12/16/19 12/16/19 12/16/19 05:46 05:46 11:44 WBC RBC Hgb Hct MCHC RDW MCV MCH Lymph % (Auto) Mineral % (Auto) Mineral # Eos # Lymph # (Auto) Mineral # (Auto) Eos # (Auto) Seg Neutrophils % Seg Neuts % (Manual) Baso # (Auto) Lymphocytes % (Manual) Monocytes % (Manual) Eosinophils % (Manual) Basophils % (Manual) Seg Neutrophils # Seg Neutrophils # Man Lymphocytes # (Manual) Monocytes # (Manual) Eosinophils # (Manual) Nucleated RBC % Basophils # (Manual) PT INR APTT Heparin Anti-Xa Level 0.20 L ABG pH POC ABG pO2 ABG pO2 ABG HCO3 ABG O2 Saturation ABG Base Excess POC ABG pCO2 ABG Hemoglobin ABG Oxyhemoglobin ABG Sodium ABG Chloride ABG Glucose Oxyhemoglobin Sodium Potassium Chloride Carbon Dioxide 31 H BUN Creatinine 0.5 L Glucose 147 H POC Glucose 164 H Lactic Acid Calcium Phosphorus Magnesium AST ALT Lactate Dehydrogenase Total Bilirubin Direct Bilirubin CK-MB (CK-2) C-Reactive Protein NT-Pro-B Natriuret Pep Total Protein Albumin Arterial Blood Glucose Urine WBC (Auto) Urine Creatinine 12/16/19 12/16/19 12/17/19 17:17 23:49 05:30 WBC 13.9 H RBC 3.27 L Hgb 9.4 L Hct 29.2 L MCHC RDW 16.0 H MCV MCH Lymph % (Auto) Mineral % (Auto) 8.8 H Mineral # Eos # Lymph # (Auto) Mineral # (Auto) 1.2 H Eos # (Auto) 0.5 H Seg Neutrophils % 70.5 H Seg Neuts % (Manual) Baso # (Auto) 0.2 H Lymphocytes % (Manual) Monocytes % (Manual) Eosinophils % (Manual) Basophils % (Manual) Seg Neutrophils # 9.8 H Seg Neutrophils # Man Lymphocytes # (Manual) Monocytes # (Manual) Eosinophils # (Manual) Nucleated RBC % Basophils # (Manual) PT INR APTT Heparin Anti-Xa Level ABG pH POC ABG pO2 ABG pO2 ABG HCO3 ABG O2 Saturation ABG Base Excess POC ABG pCO2 ABG Hemoglobin ABG Oxyhemoglobin ABG Sodium ABG Chloride ABG Glucose Oxyhemoglobin Sodium Potassium Chloride Carbon Dioxide BUN Creatinine Glucose POC Glucose 162 H 144 H Lactic Acid Calcium Phosphorus Magnesium AST ALT Lactate Dehydrogenase Total Bilirubin Direct Bilirubin CK-MB (CK-2) C-Reactive Protein NT-Pro-B Natriuret Pep Total Protein Albumin Arterial Blood Glucose Urine WBC (Auto) Urine Creatinine 12/17/19 12/17/19 12/17/19 05:30 06:06 11:50 WBC RBC Hgb Hct MCHC RDW MCV MCH Lymph % (Auto) Mineral % (Auto) Mineral # Eos # Lymph # (Auto) Mineral # (Auto) Eos # (Auto) Seg Neutrophils % Seg Neuts % (Manual) Baso # (Auto) Lymphocytes % (Manual) Monocytes % (Manual) Eosinophils % (Manual) Basophils % (Manual) Seg Neutrophils # Seg Neutrophils # Man Lymphocytes # (Manual) Monocytes # (Manual) Eosinophils # (Manual) Nucleated RBC % Basophils # (Manual) PT INR APTT Heparin Anti-Xa Level ABG pH POC ABG pO2 ABG pO2 ABG HCO3 ABG O2 Saturation ABG Base Excess POC ABG pCO2 ABG Hemoglobin ABG Oxyhemoglobin ABG Sodium ABG Chloride ABG Glucose Oxyhemoglobin Sodium Potassium Chloride 97.4 L Carbon Dioxide 32 H BUN Creatinine 0.5 L Glucose 135 H POC Glucose 151 H 140 H Lactic Acid Calcium Phosphorus Magnesium AST ALT Lactate Dehydrogenase Total Bilirubin Direct Bilirubin CK-MB (CK-2) C-Reactive Protein NT-Pro-B Natriuret Pep Total Protein Albumin Arterial Blood Glucose Urine WBC (Auto) Urine Creatinine 12/17/19 12/17/19 12/18/19 17:50 23:46 05:17 WBC RBC Hgb 8.8 L Hct 28.0 L MCHC RDW MCV MCH Lymph % (Auto) Mineral % (Auto) Mineral # Eos # Lymph # (Auto) Mineral # (Auto) Eos # (Auto) Seg Neutrophils % Seg Neuts % (Manual) Baso # (Auto) Lymphocytes % (Manual) Monocytes % (Manual) Eosinophils % (Manual) Basophils % (Manual) Seg Neutrophils # Seg Neutrophils # Man Lymphocytes # (Manual) Monocytes # (Manual) Eosinophils # (Manual) Nucleated RBC % Basophils # (Manual) PT INR APTT Heparin Anti-Xa Level ABG pH POC ABG pO2 ABG pO2 ABG HCO3 ABG O2 Saturation ABG Base Excess POC ABG pCO2 ABG Hemoglobin ABG Oxyhemoglobin ABG Sodium ABG Chloride ABG Glucose Oxyhemoglobin Sodium Potassium Chloride Carbon Dioxide BUN Creatinine Glucose POC Glucose 158 H 150 H Lactic Acid Calcium Phosphorus Magnesium AST ALT Lactate Dehydrogenase Total Bilirubin Direct Bilirubin CK-MB (CK-2) C-Reactive Protein NT-Pro-B Natriuret Pep Total Protein Albumin Arterial Blood Glucose Urine WBC (Auto) Urine Creatinine 12/18/19 12/18/19 12/18/19 05:17 05:49 11:12 WBC RBC Hgb Hct MCHC RDW MCV MCH Lymph % (Auto) Mineral % (Auto) Mineral # Eos # Lymph # (Auto) Mineral # (Auto) Eos # (Auto) Seg Neutrophils % Seg Neuts % (Manual) Baso # (Auto) Lymphocytes % (Manual) Monocytes % (Manual) Eosinophils % (Manual) Basophils % (Manual) Seg Neutrophils # Seg Neutrophils # Man Lymphocytes # (Manual) Monocytes # (Manual) Eosinophils # (Manual) Nucleated RBC % Basophils # (Manual) PT INR APTT Heparin Anti-Xa Level 0.16 L ABG pH POC ABG pO2 ABG pO2 ABG HCO3 ABG O2 Saturation ABG Base Excess POC ABG pCO2 ABG Hemoglobin ABG Oxyhemoglobin ABG Sodium ABG Chloride ABG Glucose Oxyhemoglobin Sodium Potassium Chloride Carbon Dioxide BUN Creatinine Glucose POC Glucose 127 H 191 H Lactic Acid Calcium Phosphorus Magnesium AST ALT Lactate Dehydrogenase Total Bilirubin Direct Bilirubin CK-MB (CK-2) C-Reactive Protein NT-Pro-B Natriuret Pep Total Protein Albumin Arterial Blood Glucose Urine WBC (Auto) Urine Creatinine 12/18/19 12/18/19 12/19/19 17:03 20:16 00:08 WBC RBC Hgb Hct MCHC RDW MCV MCH Lymph % (Auto) Mineral % (Auto) Mineral # Eos # Lymph # (Auto) Mineral # (Auto) Eos # (Auto) Seg Neutrophils % Seg Neuts % (Manual) Baso # (Auto) Lymphocytes % (Manual) Monocytes % (Manual) Eosinophils % (Manual) Basophils % (Manual) Seg Neutrophils # Seg Neutrophils # Man Lymphocytes # (Manual) Monocytes # (Manual) Eosinophils # (Manual) Nucleated RBC % Basophils # (Manual) PT INR APTT Heparin Anti-Xa Level ABG pH POC ABG pO2 ABG pO2 ABG HCO3 ABG O2 Saturation ABG Base Excess POC ABG pCO2 ABG Hemoglobin ABG Oxyhemoglobin ABG Sodium ABG Chloride ABG Glucose Oxyhemoglobin Sodium Potassium Chloride Carbon Dioxide BUN Creatinine Glucose POC Glucose 133 H 128 H 129 H Lactic Acid Calcium Phosphorus Magnesium AST ALT Lactate Dehydrogenase Total Bilirubin Direct Bilirubin CK-MB (CK-2) C-Reactive Protein NT-Pro-B Natriuret Pep Total Protein Albumin Arterial Blood Glucose Urine WBC (Auto) Urine Creatinine 12/19/19 12/19/19 12/19/19 04:45 04:45 05:35 WBC RBC Hgb Hct MCHC RDW MCV MCH Lymph % (Auto) Mineral % (Auto) Mineral # Eos # Lymph # (Auto) Mineral # (Auto) Eos # (Auto) Seg Neutrophils % Seg Neuts % (Manual) Baso # (Auto) Lymphocytes % (Manual) Monocytes % (Manual) Eosinophils % (Manual) Basophils % (Manual) Seg Neutrophils # Seg Neutrophils # Man Lymphocytes # (Manual) Monocytes # (Manual) Eosinophils # (Manual) Nucleated RBC % Basophils # (Manual) PT INR APTT Heparin Anti-Xa Level 0.17 L ABG pH POC ABG pO2 ABG pO2 ABG HCO3 ABG O2 Saturation ABG Base Excess POC ABG pCO2 ABG Hemoglobin ABG Oxyhemoglobin ABG Sodium ABG Chloride ABG Glucose Oxyhemoglobin Sodium Potassium Chloride Carbon Dioxide BUN Creatinine Glucose POC Glucose 120 H Lactic Acid Calcium Phosphorus Magnesium AST ALT Lactate Dehydrogenase 228 H Total Bilirubin Direct Bilirubin CK-MB (CK-2) C-Reactive Protein NT-Pro-B Natriuret Pep Total Protein Albumin Arterial Blood Glucose Urine WBC (Auto) Urine Creatinine 12/19/19 12/19/19 12/19/19 09:20 11:32 11:32 WBC 14.6 H RBC 3.08 L Hgb 9.0 L Hct 26.8 L MCHC RDW 15.9 H MCV MCH Lymph % (Auto) Mineral % (Auto) Mineral # Eos # Lymph # (Auto) Mineral # (Auto) Eos # (Auto) Seg Neutrophils % Seg Neuts % (Manual) 82.0 H Baso # (Auto) Lymphocytes % (Manual) 10.0 L Monocytes % (Manual) Eosinophils % (Manual) Basophils % (Manual) Seg Neutrophils # Seg Neutrophils # Man 12.0 H Lymphocytes # (Manual) Monocytes # (Manual) 0.9 H Eosinophils # (Manual) Nucleated RBC % 1.0 H Basophils # (Manual) PT INR APTT Heparin Anti-Xa Level ABG pH 7.451 H POC ABG pO2 ABG pO2 62.6 L ABG HCO3 33.2 H ABG O2 Saturation 93.8 L ABG Base Excess 8.3 H POC ABG pCO2 ABG Hemoglobin 8.3 L ABG Oxyhemoglobin ABG Sodium ABG Chloride ABG Glucose Oxyhemoglobin 91.9 L Sodium Potassium Chloride 95.0 L Carbon Dioxide 33 H BUN 22 H Creatinine 0.6 L Glucose 150 H POC Glucose Lactic Acid Calcium Phosphorus Magnesium AST ALT Lactate Dehydrogenase Total Bilirubin Direct Bilirubin CK-MB (CK-2) C-Reactive Protein NT-Pro-B Natriuret Pep Total Protein 6.2 L Albumin 2.4 L Arterial Blood Glucose Urine WBC (Auto) Urine Creatinine 12/19/19 12/19/19 12/20/19 11:56 18:17 00:09 WBC RBC Hgb Hct MCHC RDW MCV MCH Lymph % (Auto) Mineral % (Auto) Mineral # Eos # Lymph # (Auto) Mineral # (Auto) Eos # (Auto) Seg Neutrophils % Seg Neuts % (Manual) Baso # (Auto) Lymphocytes % (Manual) Monocytes % (Manual) Eosinophils % (Manual) Basophils % (Manual) Seg Neutrophils # Seg Neutrophils # Man Lymphocytes # (Manual) Monocytes # (Manual) Eosinophils # (Manual) Nucleated RBC % Basophils # (Manual) PT INR APTT Heparin Anti-Xa Level ABG pH POC ABG pO2 ABG pO2 ABG HCO3 ABG O2 Saturation ABG Base Excess POC ABG pCO2 ABG Hemoglobin ABG Oxyhemoglobin ABG Sodium ABG Chloride ABG Glucose Oxyhemoglobin Sodium Potassium Chloride Carbon Dioxide BUN Creatinine Glucose POC Glucose 156 H 156 H 155 H Lactic Acid Calcium Phosphorus Magnesium AST ALT Lactate Dehydrogenase Total Bilirubin Direct Bilirubin CK-MB (CK-2) C-Reactive Protein NT-Pro-B Natriuret Pep Total Protein Albumin Arterial Blood Glucose Urine WBC (Auto) Urine Creatinine 12/20/19 12/20/19 12/20/19 05:26 06:02 18:17 WBC RBC Hgb Hct MCHC RDW MCV MCH Lymph % (Auto) Mineral % (Auto) Mineral # Eos # Lymph # (Auto) Mineral # (Auto) Eos # (Auto) Seg Neutrophils % Seg Neuts % (Manual) Baso # (Auto) Lymphocytes % (Manual) Monocytes % (Manual) Eosinophils % (Manual) Basophils % (Manual) Seg Neutrophils # Seg Neutrophils # Man Lymphocytes # (Manual) Monocytes # (Manual) Eosinophils # (Manual) Nucleated RBC % Basophils # (Manual) PT INR APTT Heparin Anti-Xa Level 0.19 L ABG pH POC ABG pO2 ABG pO2 ABG HCO3 ABG O2 Saturation ABG Base Excess POC ABG pCO2 ABG Hemoglobin ABG Oxyhemoglobin ABG Sodium ABG Chloride ABG Glucose Oxyhemoglobin Sodium Potassium Chloride Carbon Dioxide BUN Creatinine Glucose POC Glucose 137 H 128 H Lactic Acid Calcium Phosphorus Magnesium AST ALT Lactate Dehydrogenase Total Bilirubin Direct Bilirubin CK-MB (CK-2) C-Reactive Protein NT-Pro-B Natriuret Pep Total Protein Albumin Arterial Blood Glucose Urine WBC (Auto) Urine Creatinine 12/20/19 12/21/19 12/21/19 23:34 05:31 05:31 WBC 12.7 H RBC 3.09 L Hgb 8.9 L Hct 27.4 L MCHC RDW 15.8 H MCV MCH Lymph % (Auto) 12.1 L Mineral % (Auto) 7.8 H Mineral # Eos # Lymph # (Auto) Mineral # (Auto) 1.0 H Eos # (Auto) Seg Neutrophils % 77.1 H Seg Neuts % (Manual) Baso # (Auto) Lymphocytes % (Manual) Monocytes % (Manual) Eosinophils % (Manual) Basophils % (Manual) Seg Neutrophils # 9.8 H Seg Neutrophils # Man Lymphocytes # (Manual) Monocytes # (Manual) Eosinophils # (Manual) Nucleated RBC % Basophils # (Manual) PT INR APTT Heparin Anti-Xa Level ABG pH POC ABG pO2 ABG pO2 ABG HCO3 ABG O2 Saturation ABG Base Excess POC ABG pCO2 ABG Hemoglobin ABG Oxyhemoglobin ABG Sodium ABG Chloride ABG Glucose Oxyhemoglobin Sodium Potassium Chloride 96.9 L Carbon Dioxide 37 H BUN 27 H Creatinine 0.7 L Glucose 140 H POC Glucose 145 H Lactic Acid Calcium Phosphorus Magnesium AST ALT Lactate Dehydrogenase Total Bilirubin Direct Bilirubin CK-MB (CK-2) C-Reactive Protein NT-Pro-B Natriuret Pep Total Protein Albumin Arterial Blood Glucose Urine WBC (Auto) Urine Creatinine 12/21/19 12/21/19 12/21/19 05:38 10:13 11:51 WBC RBC Hgb Hct MCHC RDW MCV MCH Lymph % (Auto) Mineral % (Auto) Mineral # Eos # Lymph # (Auto) Mineral # (Auto) Eos # (Auto) Seg Neutrophils % Seg Neuts % (Manual) Baso # (Auto) Lymphocytes % (Manual) Monocytes % (Manual) Eosinophils % (Manual) Basophils % (Manual) Seg Neutrophils # Seg Neutrophils # Man Lymphocytes # (Manual) Monocytes # (Manual) Eosinophils # (Manual) Nucleated RBC % Basophils # (Manual) PT INR APTT 23.9 L Heparin Anti-Xa Level < 0.10 L ABG pH POC ABG pO2 ABG pO2 ABG HCO3 ABG O2 Saturation ABG Base Excess POC ABG pCO2 ABG Hemoglobin ABG Oxyhemoglobin ABG Sodium ABG Chloride ABG Glucose Oxyhemoglobin Sodium Potassium Chloride Carbon Dioxide BUN Creatinine Glucose POC Glucose 151 H 145 H Lactic Acid Calcium Phosphorus Magnesium AST ALT Lactate Dehydrogenase Total Bilirubin Direct Bilirubin CK-MB (CK-2) C-Reactive Protein NT-Pro-B Natriuret Pep Total Protein Albumin Arterial Blood Glucose Urine WBC (Auto) Urine Creatinine 12/21/19 12/22/19 12/22/19 17:16 00:01 01:33 WBC RBC Hgb Hct MCHC RDW MCV MCH Lymph % (Auto) Mineral % (Auto) Mineral # Eos # Lymph # (Auto) Mineral # (Auto) Eos # (Auto) Seg Neutrophils % Seg Neuts % (Manual) Baso # (Auto) Lymphocytes % (Manual) Monocytes % (Manual) Eosinophils % (Manual) Basophils % (Manual) Seg Neutrophils # Seg Neutrophils # Man Lymphocytes # (Manual) Monocytes # (Manual) Eosinophils # (Manual) Nucleated RBC % Basophils # (Manual) PT INR APTT Heparin Anti-Xa Level 0.10 L ABG pH POC ABG pO2 ABG pO2 ABG HCO3 ABG O2 Saturation ABG Base Excess POC ABG pCO2 ABG Hemoglobin ABG Oxyhemoglobin ABG Sodium ABG Chloride ABG Glucose Oxyhemoglobin Sodium Potassium Chloride Carbon Dioxide BUN Creatinine Glucose POC Glucose 167 H 179 H Lactic Acid Calcium Phosphorus Magnesium AST ALT Lactate Dehydrogenase Total Bilirubin Direct Bilirubin CK-MB (CK-2) C-Reactive Protein NT-Pro-B Natriuret Pep Total Protein Albumin Arterial Blood Glucose Urine WBC (Auto) Urine Creatinine 12/22/19 12/22/19 12/22/19 03:22 05:10 05:10 WBC 13.8 H RBC 3.20 L Hgb 8.9 L Hct 28.1 L MCHC RDW 15.9 H MCV MCH Lymph % (Auto) Mineral % (Auto) Mineral # Eos # Lymph # (Auto) Mineral # (Auto) Eos # (Auto) Seg Neutrophils % Seg Neuts % (Manual) Baso # (Auto) Lymphocytes % (Manual) Monocytes % (Manual) Eosinophils % (Manual) Basophils % (Manual) Seg Neutrophils # Seg Neutrophils # Man Lymphocytes # (Manual) Monocytes # (Manual) Eosinophils # (Manual) Nucleated RBC % Basophils # (Manual) PT INR APTT Heparin Anti-Xa Level ABG pH POC ABG pO2 52.3 L ABG pO2 ABG HCO3 ABG O2 Saturation ABG Base Excess POC ABG pCO2 52.9 H ABG Hemoglobin 10.7 L ABG Oxyhemoglobin 84 L ABG Sodium ABG Chloride ABG Glucose Oxyhemoglobin Sodium Potassium Chloride 96.6 L Carbon Dioxide BUN 25 H Creatinine 0.7 L Glucose 129 H POC Glucose Lactic Acid Calcium Phosphorus Magnesium AST ALT Lactate Dehydrogenase Total Bilirubin Direct Bilirubin CK-MB (CK-2) C-Reactive Protein NT-Pro-B Natriuret Pep Total Protein Albumin Arterial Blood Glucose Urine WBC (Auto) Urine Creatinine 12/22/19 12/22/19 12/22/19 05:18 12:32 12:43 WBC RBC Hgb Hct MCHC RDW MCV MCH Lymph % (Auto) Mineral % (Auto) Mineral # Eos # Lymph # (Auto) Mineral # (Auto) Eos # (Auto) Seg Neutrophils % Seg Neuts % (Manual) Baso # (Auto) Lymphocytes % (Manual) Monocytes % (Manual) Eosinophils % (Manual) Basophils % (Manual) Seg Neutrophils # Seg Neutrophils # Man Lymphocytes # (Manual) Monocytes # (Manual) Eosinophils # (Manual) Nucleated RBC % Basophils # (Manual) PT INR APTT Heparin Anti-Xa Level 0.18 L ABG pH POC ABG pO2 ABG pO2 ABG HCO3 ABG O2 Saturation ABG Base Excess POC ABG pCO2 ABG Hemoglobin ABG Oxyhemoglobin ABG Sodium ABG Chloride ABG Glucose Oxyhemoglobin Sodium Potassium Chloride Carbon Dioxide BUN Creatinine Glucose POC Glucose 131 H 208 H Lactic Acid Calcium Phosphorus Magnesium AST ALT Lactate Dehydrogenase Total Bilirubin Direct Bilirubin CK-MB (CK-2) C-Reactive Protein NT-Pro-B Natriuret Pep Total Protein Albumin Arterial Blood Glucose Urine WBC (Auto) Urine Creatinine 12/22/19 12/22/19 12/23/19 17:44 23:20 03:51 WBC 15.2 H RBC 3.43 L Hgb 9.6 L Hct 30.3 L MCHC RDW 15.9 H MCV MCH Lymph % (Auto) Mineral % (Auto) Mineral # Eos # Lymph # (Auto) Mineral # (Auto) Eos # (Auto) Seg Neutrophils % Seg Neuts % (Manual) Baso # (Auto) Lymphocytes % (Manual) Monocytes % (Manual) Eosinophils % (Manual) Basophils % (Manual) Seg Neutrophils # Seg Neutrophils # Man Lymphocytes # (Manual) Monocytes # (Manual) Eosinophils # (Manual) Nucleated RBC % Basophils # (Manual) PT INR APTT Heparin Anti-Xa Level ABG pH POC ABG pO2 ABG pO2 ABG HCO3 ABG O2 Saturation ABG Base Excess POC ABG pCO2 ABG Hemoglobin ABG Oxyhemoglobin ABG Sodium ABG Chloride ABG Glucose Oxyhemoglobin Sodium Potassium Chloride Carbon Dioxide BUN Creatinine Glucose POC Glucose 209 H 119 H Lactic Acid Calcium Phosphorus Magnesium AST ALT Lactate Dehydrogenase Total Bilirubin Direct Bilirubin CK-MB (CK-2) C-Reactive Protein NT-Pro-B Natriuret Pep Total Protein Albumin Arterial Blood Glucose Urine WBC (Auto) Urine Creatinine 12/23/19 12/23/19 12/23/19 03:51 05:31 12:09 WBC RBC Hgb Hct MCHC RDW MCV MCH Lymph % (Auto) Mineral % (Auto) Mineral # Eos # Lymph # (Auto) Mineral # (Auto) Eos # (Auto) Seg Neutrophils % Seg Neuts % (Manual) Baso # (Auto) Lymphocytes % (Manual) Monocytes % (Manual) Eosinophils % (Manual) Basophils % (Manual) Seg Neutrophils # Seg Neutrophils # Man Lymphocytes # (Manual) Monocytes # (Manual) Eosinophils # (Manual) Nucleated RBC % Basophils # (Manual) PT INR APTT Heparin Anti-Xa Level ABG pH POC ABG pO2 ABG pO2 ABG HCO3 ABG O2 Saturation ABG Base Excess POC ABG pCO2 ABG Hemoglobin ABG Oxyhemoglobin ABG Sodium ABG Chloride ABG Glucose Oxyhemoglobin Sodium Potassium Chloride 97.2 L Carbon Dioxide 31 H BUN 23 H Creatinine 0.6 L Glucose 153 H POC Glucose 149 H 144 H Lactic Acid Calcium Phosphorus Magnesium AST ALT Lactate Dehydrogenase Total Bilirubin Direct Bilirubin CK-MB (CK-2) C-Reactive Protein NT-Pro-B Natriuret Pep Total Protein Albumin Arterial Blood Glucose Urine WBC (Auto) Urine Creatinine 12/23/19 12/23/19 12/23/19 15:30 17:49 23:31 WBC RBC Hgb Hct MCHC RDW MCV MCH Lymph % (Auto) Mineral % (Auto) Mineral # Eos # Lymph # (Auto) Mineral # (Auto) Eos # (Auto) Seg Neutrophils % Seg Neuts % (Manual) Baso # (Auto) Lymphocytes % (Manual) Monocytes % (Manual) Eosinophils % (Manual) Basophils % (Manual) Seg Neutrophils # Seg Neutrophils # Man Lymphocytes # (Manual) Monocytes # (Manual) Eosinophils # (Manual) Nucleated RBC % Basophils # (Manual) PT INR APTT Heparin Anti-Xa Level 0.21 L ABG pH POC ABG pO2 ABG pO2 ABG HCO3 ABG O2 Saturation ABG Base Excess POC ABG pCO2 ABG Hemoglobin ABG Oxyhemoglobin ABG Sodium ABG Chloride ABG Glucose Oxyhemoglobin Sodium Potassium Chloride Carbon Dioxide BUN Creatinine Glucose POC Glucose 192 H 151 H Lactic Acid Calcium Phosphorus Magnesium AST ALT Lactate Dehydrogenase Total Bilirubin Direct Bilirubin CK-MB (CK-2) C-Reactive Protein NT-Pro-B Natriuret Pep Total Protein Albumin Arterial Blood Glucose Urine WBC (Auto) Urine Creatinine 12/24/19 12/24/19 12/24/19 05:34 12:13 16:50 WBC RBC Hgb Hct MCHC RDW MCV MCH Lymph % (Auto) Mineral % (Auto) Mineral # Eos # Lymph # (Auto) Mineral # (Auto) Eos # (Auto) Seg Neutrophils % Seg Neuts % (Manual) Baso # (Auto) Lymphocytes % (Manual) Monocytes % (Manual) Eosinophils % (Manual) Basophils % (Manual) Seg Neutrophils # Seg Neutrophils # Man Lymphocytes # (Manual) Monocytes # (Manual) Eosinophils # (Manual) Nucleated RBC % Basophils # (Manual) PT INR APTT Heparin Anti-Xa Level 0.16 L ABG pH POC ABG pO2 ABG pO2 ABG HCO3 ABG O2 Saturation ABG Base Excess POC ABG pCO2 ABG Hemoglobin ABG Oxyhemoglobin ABG Sodium ABG Chloride ABG Glucose Oxyhemoglobin Sodium Potassium Chloride Carbon Dioxide BUN Creatinine Glucose POC Glucose 145 H 124 H Lactic Acid Calcium Phosphorus Magnesium AST ALT Lactate Dehydrogenase Total Bilirubin Direct Bilirubin CK-MB (CK-2) C-Reactive Protein NT-Pro-B Natriuret Pep Total Protein Albumin Arterial Blood Glucose Urine WBC (Auto) Urine Creatinine 12/24/19 12/25/19 12/25/19 17:53 00:14 04:18 WBC 12.9 H RBC 3.30 L Hgb 9.1 L Hct 28.8 L MCHC RDW 16.4 H MCV MCH Lymph % (Auto) Mineral % (Auto) 7.8 H Mineral # Eos # Lymph # (Auto) Mineral # (Auto) 1.0 H Eos # (Auto) Seg Neutrophils % 75.5 H Seg Neuts % (Manual) Baso # (Auto) Lymphocytes % (Manual) Monocytes % (Manual) Eosinophils % (Manual) Basophils % (Manual) Seg Neutrophils # 9.7 H Seg Neutrophils # Man Lymphocytes # (Manual) Monocytes # (Manual) Eosinophils # (Manual) Nucleated RBC % Basophils # (Manual) PT INR APTT Heparin Anti-Xa Level ABG pH POC ABG pO2 ABG pO2 ABG HCO3 ABG O2 Saturation ABG Base Excess POC ABG pCO2 ABG Hemoglobin ABG Oxyhemoglobin ABG Sodium ABG Chloride ABG Glucose Oxyhemoglobin Sodium Potassium Chloride Carbon Dioxide BUN Creatinine Glucose POC Glucose 164 H 148 H Lactic Acid Calcium Phosphorus Magnesium AST ALT Lactate Dehydrogenase Total Bilirubin Direct Bilirubin CK-MB (CK-2) C-Reactive Protein NT-Pro-B Natriuret Pep Total Protein Albumin Arterial Blood Glucose Urine WBC (Auto) Urine Creatinine 12/25/19 12/25/19 12/25/19 04:18 05:38 11:44 WBC RBC Hgb Hct MCHC RDW MCV MCH Lymph % (Auto) Mineral % (Auto) Mineral # Eos # Lymph # (Auto) Mineral # (Auto) Eos # (Auto) Seg Neutrophils % Seg Neuts % (Manual) Baso # (Auto) Lymphocytes % (Manual) Monocytes % (Manual) Eosinophils % (Manual) Basophils % (Manual) Seg Neutrophils # Seg Neutrophils # Man Lymphocytes # (Manual) Monocytes # (Manual) Eosinophils # (Manual) Nucleated RBC % Basophils # (Manual) PT INR APTT Heparin Anti-Xa Level ABG pH POC ABG pO2 ABG pO2 ABG HCO3 ABG O2 Saturation ABG Base Excess POC ABG pCO2 ABG Hemoglobin ABG Oxyhemoglobin ABG Sodium ABG Chloride ABG Glucose Oxyhemoglobin Sodium Potassium Chloride Carbon Dioxide 33 H BUN 27 H Creatinine 0.6 L Glucose 132 H POC Glucose 152 H 166 H Lactic Acid Calcium Phosphorus Magnesium AST ALT Lactate Dehydrogenase Total Bilirubin Direct Bilirubin CK-MB (CK-2) C-Reactive Protein NT-Pro-B Natriuret Pep Total Protein Albumin Arterial Blood Glucose Urine WBC (Auto) Urine Creatinine 12/25/19 12/26/19 12/26/19 18:29 00:17 00:18 WBC RBC Hgb Hct MCHC RDW MCV MCH Lymph % (Auto) Mineral % (Auto) Mineral # Eos # Lymph # (Auto) Mineral # (Auto) Eos # (Auto) Seg Neutrophils % Seg Neuts % (Manual) Baso # (Auto) Lymphocytes % (Manual) Monocytes % (Manual) Eosinophils % (Manual) Basophils % (Manual) Seg Neutrophils # Seg Neutrophils # Man Lymphocytes # (Manual) Monocytes # (Manual) Eosinophils # (Manual) Nucleated RBC % Basophils # (Manual) PT INR APTT Heparin Anti-Xa Level ABG pH POC ABG pO2 ABG pO2 ABG HCO3 ABG O2 Saturation ABG Base Excess POC ABG pCO2 ABG Hemoglobin ABG Oxyhemoglobin ABG Sodium ABG Chloride ABG Glucose Oxyhemoglobin Sodium Potassium Chloride 97.8 L Carbon Dioxide BUN 25 H Creatinine 0.6 L Glucose 140 H POC Glucose 194 H 151 H Lactic Acid Calcium Phosphorus Magnesium AST ALT Lactate Dehydrogenase Total Bilirubin Direct Bilirubin CK-MB (CK-2) C-Reactive Protein NT-Pro-B Natriuret Pep Total Protein Albumin Arterial Blood Glucose Urine WBC (Auto) Urine Creatinine 12/26/19 12/26/19 12/26/19 05:36 11:41 17:50 WBC RBC Hgb Hct MCHC RDW MCV MCH Lymph % (Auto) Mineral % (Auto) Mineral # Eos # Lymph # (Auto) Mineral # (Auto) Eos # (Auto) Seg Neutrophils % Seg Neuts % (Manual) Baso # (Auto) Lymphocytes % (Manual) Monocytes % (Manual) Eosinophils % (Manual) Basophils % (Manual) Seg Neutrophils # Seg Neutrophils # Man Lymphocytes # (Manual) Monocytes # (Manual) Eosinophils # (Manual) Nucleated RBC % Basophils # (Manual) PT INR APTT Heparin Anti-Xa Level ABG pH POC ABG pO2 ABG pO2 ABG HCO3 ABG O2 Saturation ABG Base Excess POC ABG pCO2 ABG Hemoglobin ABG Oxyhemoglobin ABG Sodium ABG Chloride ABG Glucose Oxyhemoglobin Sodium Potassium Chloride Carbon Dioxide BUN Creatinine Glucose POC Glucose 156 H 148 H 139 H Lactic Acid Calcium Phosphorus Magnesium AST ALT Lactate Dehydrogenase Total Bilirubin Direct Bilirubin CK-MB (CK-2) C-Reactive Protein NT-Pro-B Natriuret Pep Total Protein Albumin Arterial Blood Glucose Urine WBC (Auto) Urine Creatinine 12/26/19 12/27/19 12/27/19 23:19 05:34 12:02 WBC RBC Hgb Hct MCHC RDW MCV MCH Lymph % (Auto) Mineral % (Auto) Mineral # Eos # Lymph # (Auto) Mineral # (Auto) Eos # (Auto) Seg Neutrophils % Seg Neuts % (Manual) Baso # (Auto) Lymphocytes % (Manual) Monocytes % (Manual) Eosinophils % (Manual) Basophils % (Manual) Seg Neutrophils # Seg Neutrophils # Man Lymphocytes # (Manual) Monocytes # (Manual) Eosinophils # (Manual) Nucleated RBC % Basophils # (Manual) PT INR APTT Heparin Anti-Xa Level ABG pH POC ABG pO2 ABG pO2 ABG HCO3 ABG O2 Saturation ABG Base Excess POC ABG pCO2 ABG Hemoglobin ABG Oxyhemoglobin ABG Sodium ABG Chloride ABG Glucose Oxyhemoglobin Sodium Potassium Chloride Carbon Dioxide BUN Creatinine Glucose POC Glucose 161 H 145 H 157 H Lactic Acid Calcium Phosphorus Magnesium AST ALT Lactate Dehydrogenase Total Bilirubin Direct Bilirubin CK-MB (CK-2) C-Reactive Protein NT-Pro-B Natriuret Pep Total Protein Albumin Arterial Blood Glucose Urine WBC (Auto) Urine Creatinine 12/27/19 12/27/19 12/27/19 17:35 20:11 23:00 WBC RBC Hgb Hct MCHC RDW MCV MCH Lymph % (Auto) Mineral % (Auto) Mineral # Eos # Lymph # (Auto) Mineral # (Auto) Eos # (Auto) Seg Neutrophils % Seg Neuts % (Manual) Baso # (Auto) Lymphocytes % (Manual) Monocytes % (Manual) Eosinophils % (Manual) Basophils % (Manual) Seg Neutrophils # Seg Neutrophils # Man Lymphocytes # (Manual) Monocytes # (Manual) Eosinophils # (Manual) Nucleated RBC % Basophils # (Manual) PT INR APTT Heparin Anti-Xa Level 0.19 L ABG pH POC ABG pO2 ABG pO2 ABG HCO3 ABG O2 Saturation ABG Base Excess POC ABG pCO2 ABG Hemoglobin ABG Oxyhemoglobin ABG Sodium ABG Chloride ABG Glucose Oxyhemoglobin Sodium Potassium Chloride Carbon Dioxide BUN Creatinine Glucose POC Glucose 158 H 155 H Lactic Acid Calcium Phosphorus Magnesium AST ALT Lactate Dehydrogenase Total Bilirubin Direct Bilirubin CK-MB (CK-2) C-Reactive Protein NT-Pro-B Natriuret Pep Total Protein Albumin Arterial Blood Glucose Urine WBC (Auto) Urine Creatinine 12/27/19 12/28/19 12/28/19 23:45 02:41 02:41 WBC 13.0 H RBC 3.48 L Hgb 9.5 L Hct 30.6 L MCHC 31 L RDW 16.6 H MCV MCH 27 L Lymph % (Auto) 13.0 L Mineral % (Auto) 8.0 H Mineral # Eos # Lymph # (Auto) Mineral # (Auto) 1.0 H Eos # (Auto) Seg Neutrophils % 76.3 H Seg Neuts % (Manual) Baso # (Auto) Lymphocytes % (Manual) Monocytes % (Manual) Eosinophils % (Manual) Basophils % (Manual) Seg Neutrophils # 9.9 H Seg Neutrophils # Man Lymphocytes # (Manual) Monocytes # (Manual) Eosinophils # (Manual) Nucleated RBC % Basophils # (Manual) PT INR APTT Heparin Anti-Xa Level ABG pH POC ABG pO2 ABG pO2 ABG HCO3 ABG O2 Saturation ABG Base Excess POC ABG pCO2 ABG Hemoglobin ABG Oxyhemoglobin ABG Sodium ABG Chloride ABG Glucose Oxyhemoglobin Sodium Potassium Chloride Carbon Dioxide BUN 22 H Creatinine 0.6 L Glucose 101 H POC Glucose 130 H Lactic Acid Calcium Phosphorus Magnesium AST ALT Lactate Dehydrogenase Total Bilirubin Direct Bilirubin CK-MB (CK-2) C-Reactive Protein NT-Pro-B Natriuret Pep Total Protein Albumin Arterial Blood Glucose Urine WBC (Auto) Urine Creatinine 12/28/19 12/28/19 12/28/19 06:00 12:34 18:13 WBC RBC Hgb Hct MCHC RDW MCV MCH Lymph % (Auto) Mineral % (Auto) Mineral # Eos # Lymph # (Auto) Mineral # (Auto) Eos # (Auto) Seg Neutrophils % Seg Neuts % (Manual) Baso # (Auto) Lymphocytes % (Manual) Monocytes % (Manual) Eosinophils % (Manual) Basophils % (Manual) Seg Neutrophils # Seg Neutrophils # Man Lymphocytes # (Manual) Monocytes # (Manual) Eosinophils # (Manual) Nucleated RBC % Basophils # (Manual) PT INR APTT Heparin Anti-Xa Level ABG pH POC ABG pO2 ABG pO2 ABG HCO3 ABG O2 Saturation ABG Base Excess POC ABG pCO2 ABG Hemoglobin ABG Oxyhemoglobin ABG Sodium ABG Chloride ABG Glucose Oxyhemoglobin Sodium Potassium Chloride Carbon Dioxide BUN Creatinine Glucose POC Glucose 150 H 161 H 128 H Lactic Acid Calcium Phosphorus Magnesium AST ALT Lactate Dehydrogenase Total Bilirubin Direct Bilirubin CK-MB (CK-2) C-Reactive Protein NT-Pro-B Natriuret Pep Total Protein Albumin Arterial Blood Glucose Urine WBC (Auto) Urine Creatinine 12/28/19 12/29/19 12/29/19 23:36 05:21 11:40 WBC RBC Hgb Hct MCHC RDW MCV MCH Lymph % (Auto) Mineral % (Auto) Mineral # Eos # Lymph # (Auto) Mineral # (Auto) Eos # (Auto) Seg Neutrophils % Seg Neuts % (Manual) Baso # (Auto) Lymphocytes % (Manual) Monocytes % (Manual) Eosinophils % (Manual) Basophils % (Manual) Seg Neutrophils # Seg Neutrophils # Man Lymphocytes # (Manual) Monocytes # (Manual) Eosinophils # (Manual) Nucleated RBC % Basophils # (Manual) PT INR APTT Heparin Anti-Xa Level ABG pH POC ABG pO2 ABG pO2 ABG HCO3 ABG O2 Saturation ABG Base Excess POC ABG pCO2 ABG Hemoglobin ABG Oxyhemoglobin ABG Sodium ABG Chloride ABG Glucose Oxyhemoglobin Sodium Potassium Chloride Carbon Dioxide BUN Creatinine Glucose POC Glucose 137 H 136 H 166 H Lactic Acid Calcium Phosphorus Magnesium AST ALT Lactate Dehydrogenase Total Bilirubin Direct Bilirubin CK-MB (CK-2) C-Reactive Protein NT-Pro-B Natriuret Pep Total Protein Albumin Arterial Blood Glucose Urine WBC (Auto) Urine Creatinine 12/29/19 12/29/19 12/29/19 17:23 19:21 23:38 WBC RBC Hgb Hct MCHC RDW MCV MCH Lymph % (Auto) Mineral % (Auto) Mineral # Eos # Lymph # (Auto) Mineral # (Auto) Eos # (Auto) Seg Neutrophils % Seg Neuts % (Manual) Baso # (Auto) Lymphocytes % (Manual) Monocytes % (Manual) Eosinophils % (Manual) Basophils % (Manual) Seg Neutrophils # Seg Neutrophils # Man Lymphocytes # (Manual) Monocytes # (Manual) Eosinophils # (Manual) Nucleated RBC % Basophils # (Manual) PT INR APTT Heparin Anti-Xa Level 0.20 L ABG pH POC ABG pO2 ABG pO2 ABG HCO3 ABG O2 Saturation ABG Base Excess POC ABG pCO2 ABG Hemoglobin ABG Oxyhemoglobin ABG Sodium ABG Chloride ABG Glucose Oxyhemoglobin Sodium Potassium Chloride Carbon Dioxide BUN Creatinine Glucose POC Glucose 144 H 141 H Lactic Acid Calcium Phosphorus Magnesium AST ALT Lactate Dehydrogenase Total Bilirubin Direct Bilirubin CK-MB (CK-2) C-Reactive Protein NT-Pro-B Natriuret Pep Total Protein Albumin Arterial Blood Glucose Urine WBC (Auto) Urine Creatinine 12/30/19 12/30/19 12/30/19 03:58 03:58 04:59 WBC RBC 3.54 L Hgb 9.8 L Hct 30.7 L MCHC RDW 16.8 H MCV MCH Lymph % (Auto) Mineral % (Auto) Mineral # Eos # Lymph # (Auto) Mineral # (Auto) Eos # (Auto) Seg Neutrophils % Seg Neuts % (Manual) Baso # (Auto) Lymphocytes % (Manual) Monocytes % (Manual) Eosinophils % (Manual) Basophils % (Manual) Seg Neutrophils # Seg Neutrophils # Man Lymphocytes # (Manual) Monocytes # (Manual) Eosinophils # (Manual) Nucleated RBC % Basophils # (Manual) PT INR APTT Heparin Anti-Xa Level ABG pH POC ABG pO2 ABG pO2 ABG HCO3 29.8 H ABG O2 Saturation ABG Base Excess 4.8 H POC ABG pCO2 ABG Hemoglobin 11.2 L ABG Oxyhemoglobin ABG Sodium ABG Chloride ABG Glucose Oxyhemoglobin 93.8 L Sodium Potassium Chloride 97.8 L Carbon Dioxide BUN 26 H Creatinine Glucose 168 H POC Glucose Lactic Acid Calcium Phosphorus Magnesium AST ALT Lactate Dehydrogenase Total Bilirubin Direct Bilirubin CK-MB (CK-2) C-Reactive Protein NT-Pro-B Natriuret Pep Total Protein Albumin Arterial Blood Glucose Urine WBC (Auto) Urine Creatinine 12/30/19 12/30/19 12/30/19 05:45 11:34 17:28 WBC RBC Hgb Hct MCHC RDW MCV MCH Lymph % (Auto) Mineral % (Auto) Mineral # Eos # Lymph # (Auto) Mineral # (Auto) Eos # (Auto) Seg Neutrophils % Seg Neuts % (Manual) Baso # (Auto) Lymphocytes % (Manual) Monocytes % (Manual) Eosinophils % (Manual) Basophils % (Manual) Seg Neutrophils # Seg Neutrophils # Man Lymphocytes # (Manual) Monocytes # (Manual) Eosinophils # (Manual) Nucleated RBC % Basophils # (Manual) PT INR APTT Heparin Anti-Xa Level ABG pH POC ABG pO2 ABG pO2 ABG HCO3 ABG O2 Saturation ABG Base Excess POC ABG pCO2 ABG Hemoglobin ABG Oxyhemoglobin ABG Sodium ABG Chloride ABG Glucose Oxyhemoglobin Sodium Potassium Chloride Carbon Dioxide BUN Creatinine Glucose POC Glucose 163 H 180 H 150 H Lactic Acid Calcium Phosphorus Magnesium AST ALT Lactate Dehydrogenase Total Bilirubin Direct Bilirubin CK-MB (CK-2) C-Reactive Protein NT-Pro-B Natriuret Pep Total Protein Albumin Arterial Blood Glucose Urine WBC (Auto) Urine Creatinine 12/30/19 12/31/19 12/31/19 23:43 04:55 05:07 WBC RBC Hgb Hct MCHC RDW MCV MCH Lymph % (Auto) Mineral % (Auto) Mineral # Eos # Lymph # (Auto) Mineral # (Auto) Eos # (Auto) Seg Neutrophils % Seg Neuts % (Manual) Baso # (Auto) Lymphocytes % (Manual) Monocytes % (Manual) Eosinophils % (Manual) Basophils % (Manual) Seg Neutrophils # Seg Neutrophils # Man Lymphocytes # (Manual) Monocytes # (Manual) Eosinophils # (Manual) Nucleated RBC % Basophils # (Manual) PT INR APTT Heparin Anti-Xa Level ABG pH POC ABG pO2 ABG pO2 ABG HCO3 ABG O2 Saturation ABG Base Excess POC ABG pCO2 ABG Hemoglobin ABG Oxyhemoglobin ABG Sodium ABG Chloride ABG Glucose Oxyhemoglobin Sodium Potassium 5.6 H D Chloride Carbon Dioxide BUN 33 H Creatinine Glucose 131 H POC Glucose 142 H 134 H Lactic Acid Calcium Phosphorus Magnesium AST ALT Lactate Dehydrogenase Total Bilirubin Direct Bilirubin CK-MB (CK-2) C-Reactive Protein NT-Pro-B Natriuret Pep Total Protein Albumin Arterial Blood Glucose Urine WBC (Auto) Urine Creatinine 12/31/19 12/31/19 12/31/19 11:30 17:19 17:36 WBC RBC Hgb Hct MCHC RDW MCV MCH Lymph % (Auto) Mineral % (Auto) Mineral # Eos # Lymph # (Auto) Mineral # (Auto) Eos # (Auto) Seg Neutrophils % Seg Neuts % (Manual) Baso # (Auto) Lymphocytes % (Manual) Monocytes % (Manual) Eosinophils % (Manual) Basophils % (Manual) Seg Neutrophils # Seg Neutrophils # Man Lymphocytes # (Manual) Monocytes # (Manual) Eosinophils # (Manual) Nucleated RBC % Basophils # (Manual) PT INR APTT Heparin Anti-Xa Level ABG pH POC ABG pO2 ABG pO2 ABG HCO3 ABG O2 Saturation ABG Base Excess POC ABG pCO2 ABG Hemoglobin ABG Oxyhemoglobin ABG Sodium ABG Chloride ABG Glucose Oxyhemoglobin Sodium Potassium Chloride Carbon Dioxide BUN 35 H Creatinine Glucose 156 H POC Glucose 158 H 181 H Lactic Acid Calcium Phosphorus Magnesium AST ALT Lactate Dehydrogenase Total Bilirubin Direct Bilirubin CK-MB (CK-2) C-Reactive Protein NT-Pro-B Natriuret Pep Total Protein Albumin Arterial Blood Glucose Urine WBC (Auto) Urine Creatinine 12/31/19 12/31/19 12/31/19 18:16 19:41 21:53 WBC RBC Hgb Hct MCHC RDW MCV MCH Lymph % (Auto) Mineral % (Auto) Mineral # Eos # Lymph # (Auto) Mineral # (Auto) Eos # (Auto) Seg Neutrophils % Seg Neuts % (Manual) Baso # (Auto) Lymphocytes % (Manual) Monocytes % (Manual) Eosinophils % (Manual) Basophils % (Manual) Seg Neutrophils # Seg Neutrophils # Man Lymphocytes # (Manual) Monocytes # (Manual) Eosinophils # (Manual) Nucleated RBC % Basophils # (Manual) PT INR APTT Heparin Anti-Xa Level 0.20 L ABG pH POC ABG pO2 ABG pO2 ABG HCO3 ABG O2 Saturation ABG Base Excess POC ABG pCO2 ABG Hemoglobin ABG Oxyhemoglobin ABG Sodium ABG Chloride ABG Glucose Oxyhemoglobin Sodium Potassium Chloride Carbon Dioxide BUN 34 H Creatinine Glucose 169 H POC Glucose 141 H Lactic Acid Calcium Phosphorus Magnesium AST ALT Lactate Dehydrogenase Total Bilirubin Direct Bilirubin CK-MB (CK-2) C-Reactive Protein NT-Pro-B Natriuret Pep Total Protein Albumin Arterial Blood Glucose Urine WBC (Auto) Urine Creatinine 12/31/19 01/01/20 01/01/20 23:51 05:17 10:40 WBC RBC Hgb Hct MCHC RDW MCV MCH Lymph % (Auto) Mineral % (Auto) Mineral # Eos # Lymph # (Auto) Mineral # (Auto) Eos # (Auto) Seg Neutrophils % Seg Neuts % (Manual) Baso # (Auto) Lymphocytes % (Manual) Monocytes % (Manual) Eosinophils % (Manual) Basophils % (Manual) Seg Neutrophils # Seg Neutrophils # Man Lymphocytes # (Manual) Monocytes # (Manual) Eosinophils # (Manual) Nucleated RBC % Basophils # (Manual) PT INR APTT Heparin Anti-Xa Level ABG pH POC ABG pO2 ABG pO2 ABG HCO3 ABG O2 Saturation ABG Base Excess POC ABG pCO2 ABG Hemoglobin ABG Oxyhemoglobin ABG Sodium ABG Chloride ABG Glucose Oxyhemoglobin Sodium Potassium Chloride Carbon Dioxide BUN 31 H Creatinine 0.7 L Glucose 137 H POC Glucose 131 H 155 H Lactic Acid Calcium Phosphorus Magnesium AST 73 H ALT 97 H Lactate Dehydrogenase Total Bilirubin Direct Bilirubin CK-MB (CK-2) C-Reactive Protein NT-Pro-B Natriuret Pep 3866 H Total Protein Albumin 2.8 L Arterial Blood Glucose Urine WBC (Auto) Urine Creatinine 01/01/20 01/01/20 01/01/20 12:26 15:33 17:53 WBC 14.3 H RBC 3.35 L Hgb 9.1 L Hct 28.8 L MCHC RDW 17.0 H MCV MCH 27 L Lymph % (Auto) 7.0 L Mineral % (Auto) 7.6 H Mineral # Eos # Lymph # (Auto) 1.0 L [place] # (Auto) 1.1 H Eos # (Auto) Seg Neutrophils % 83.3 H Seg Neuts % (Manual) Baso # (Auto) Lymphocytes % (Manual) Monocytes % (Manual) Eosinophils % (Manual) Basophils % (Manual) Seg Neutrophils # 12.0 H Seg Neutrophils # Man Lymphocytes # (Manual) Monocytes # (Manual) Eosinophils # (Manual) Nucleated RBC % Basophils # (Manual) PT INR APTT Heparin Anti-Xa Level ABG pH POC ABG pO2 ABG pO2 ABG HCO3 ABG O2 Saturation ABG Base Excess POC ABG pCO2 ABG Hemoglobin ABG Oxyhemoglobin ABG Sodium ABG Chloride ABG Glucose Oxyhemoglobin Sodium Potassium Chloride Carbon Dioxide BUN Creatinine Glucose POC Glucose 128 H 128 H Lactic Acid Calcium Phosphorus Magnesium AST ALT Lactate Dehydrogenase Total Bilirubin Direct Bilirubin CK-MB (CK-2) C-Reactive Protein NT-Pro-B Natriuret Pep Total Protein Albumin Arterial Blood Glucose Urine WBC (Auto) Urine Creatinine 01/01/20 01/02/20 01/02/20 23:04 05:39 07:00 WBC RBC Hgb Hct MCHC RDW MCV MCH Lymph % (Auto) Mineral % (Auto) Mineral # Eos # Lymph # (Auto) Mineral # (Auto) Eos # (Auto) Seg Neutrophils % Seg Neuts % (Manual) Baso # (Auto) Lymphocytes % (Manual) Monocytes % (Manual) Eosinophils % (Manual) Basophils % (Manual) Seg Neutrophils # Seg Neutrophils # Man Lymphocytes # (Manual) Monocytes # (Manual) Eosinophils # (Manual) Nucleated RBC % Basophils # (Manual) PT INR APTT Heparin Anti-Xa Level 0.13 L ABG pH POC ABG pO2 ABG pO2 ABG HCO3 ABG O2 Saturation ABG Base Excess POC ABG pCO2 ABG Hemoglobin ABG Oxyhemoglobin ABG Sodium ABG Chloride ABG Glucose Oxyhemoglobin Sodium Potassium Chloride Carbon Dioxide BUN Creatinine Glucose POC Glucose 120 H 169 H Lactic Acid Calcium Phosphorus Magnesium AST ALT Lactate Dehydrogenase Total Bilirubin Direct Bilirubin CK-MB (CK-2) C-Reactive Protein NT-Pro-B Natriuret Pep Total Protein Albumin Arterial Blood Glucose Urine WBC (Auto) Urine Creatinine 01/02/20 01/02/20 01/02/20 12:15 14:06 17:58 WBC RBC Hgb Hct MCHC RDW MCV MCH Lymph % (Auto) Mineral % (Auto) Mineral # Eos # Lymph # (Auto) Mineral # (Auto) Eos # (Auto) Seg Neutrophils % Seg Neuts % (Manual) Baso # (Auto) Lymphocytes % (Manual) Monocytes % (Manual) Eosinophils % (Manual) Basophils % (Manual) Seg Neutrophils # Seg Neutrophils # Man Lymphocytes # (Manual) Monocytes # (Manual) Eosinophils # (Manual) Nucleated RBC % Basophils # (Manual) PT INR APTT Heparin Anti-Xa Level < 0.10 L ABG pH POC ABG pO2 ABG pO2 ABG HCO3 ABG O2 Saturation ABG Base Excess POC ABG pCO2 ABG Hemoglobin ABG Oxyhemoglobin ABG Sodium ABG Chloride ABG Glucose Oxyhemoglobin Sodium Potassium Chloride Carbon Dioxide BUN Creatinine Glucose POC Glucose 190 H 198 H Lactic Acid Calcium Phosphorus Magnesium AST ALT Lactate Dehydrogenase Total Bilirubin Direct Bilirubin CK-MB (CK-2) C-Reactive Protein NT-Pro-B Natriuret Pep Total Protein Albumin Arterial Blood Glucose Urine WBC (Auto) Urine Creatinine 01/02/20 01/02/20 01/03/20 21:43 23:33 05:42 WBC RBC Hgb Hct MCHC RDW MCV MCH Lymph % (Auto) Mineral % (Auto) Mineral # Eos # Lymph # (Auto) Mineral # (Auto) Eos # (Auto) Seg Neutrophils % Seg Neuts % (Manual) Baso # (Auto) Lymphocytes % (Manual) Monocytes % (Manual) Eosinophils % (Manual) Basophils % (Manual) Seg Neutrophils # Seg Neutrophils # Man Lymphocytes # (Manual) Monocytes # (Manual) Eosinophils # (Manual) Nucleated RBC % Basophils # (Manual) PT INR APTT Heparin Anti-Xa Level 0.10 L ABG pH POC ABG pO2 ABG pO2 ABG HCO3 ABG O2 Saturation ABG Base Excess POC ABG pCO2 ABG Hemoglobin ABG Oxyhemoglobin ABG Sodium ABG Chloride ABG Glucose Oxyhemoglobin Sodium Potassium Chloride Carbon Dioxide BUN Creatinine Glucose POC Glucose 180 H 163 H Lactic Acid Calcium Phosphorus Magnesium AST ALT Lactate Dehydrogenase Total Bilirubin Direct Bilirubin CK-MB (CK-2) C-Reactive Protein NT-Pro-B Natriuret Pep Total Protein Albumin Arterial Blood Glucose Urine WBC (Auto) Urine Creatinine 01/03/20 01/03/20 01/03/20 06:50 07:25 07:45 WBC 12.1 H RBC 3.35 L Hgb 9.0 L Hct 28.9 L MCHC 31 L RDW 16.6 H MCV MCH 27 L Lymph % (Auto) 13.0 L [place]eral % (Auto) 8.6 H Mineral # Eos # Lymph # (Auto) Mineral # (Auto) 1.0 H Eos # (Auto) Seg Neutrophils % 75.9 H Seg Neuts % (Manual) Baso # (Auto) Lymphocytes % (Manual) Monocytes % (Manual) Eosinophils % (Manual) Basophils % (Manual) Seg Neutrophils # 9.2 H Seg Neutrophils # Man Lymphocytes # (Manual) Monocytes # (Manual) Eosinophils # (Manual) Nucleated RBC % Basophils # (Manual) PT INR APTT Heparin Anti-Xa Level 0.29 L ABG pH POC ABG pO2 ABG pO2 ABG HCO3 ABG O2 Saturation ABG Base Excess POC ABG pCO2 ABG Hemoglobin ABG Oxyhemoglobin ABG Sodium ABG Chloride ABG Glucose Oxyhemoglobin Sodium Potassium 3.3 L D Chloride Carbon Dioxide 35 H D BUN 23 H Creatinine 0.6 L Glucose 149 H POC Glucose Lactic Acid Calcium Phosphorus Magnesium AST ALT 88 H Lactate Dehydrogenase Total Bilirubin Direct Bilirubin CK-MB (CK-2) C-Reactive Protein NT-Pro-B Natriuret Pep Total Protein 6.2 L Albumin 2.9 L Arterial Blood Glucose Urine WBC (Auto) Urine Creatinine 01/03/20 01/03/20 01/03/20 12:05 17:42 18:30 WBC RBC Hgb Hct MCHC RDW MCV MCH Lymph % (Auto) Mineral % (Auto) Mineral # Eos # Lymph # (Auto) Mineral # (Auto) Eos # (Auto) Seg Neutrophils % Seg Neuts % (Manual) Baso # (Auto) Lymphocytes % (Manual) Monocytes % (Manual) Eosinophils % (Manual) Basophils % (Manual) Seg Neutrophils # Seg Neutrophils # Man Lymphocytes # (Manual) Monocytes # (Manual) Eosinophils # (Manual) Nucleated RBC % Basophils # (Manual) PT INR APTT Heparin Anti-Xa Level ABG pH POC ABG pO2 ABG pO2 70.7 L ABG HCO3 36.1 H ABG O2 Saturation 94.4 L ABG Base Excess 10.0 H POC ABG pCO2 ABG Hemoglobin 9.7 L ABG Oxyhemoglobin ABG Sodium ABG Chloride ABG Glucose Oxyhemoglobin 91.8 L Sodium Potassium Chloride Carbon Dioxide BUN Creatinine Glucose POC Glucose 128 H 132 H Lactic Acid Calcium Phosphorus Magnesium AST ALT Lactate Dehydrogenase Total Bilirubin Direct Bilirubin CK-MB (CK-2) C-Reactive Protein NT-Pro-B Natriuret Pep Total Protein Albumin Arterial Blood Glucose Urine WBC (Auto) Urine Creatinine 01/04/20 01/04/20 01/04/20 00:10 04:26 05:23 WBC RBC Hgb Hct MCHC RDW MCV MCH Lymph % (Auto) Mineral % (Auto) Mineral # Eos # Lymph # (Auto) Mineral # (Auto) Eos # (Auto) Seg Neutrophils % Seg Neuts % (Manual) Baso # (Auto) Lymphocytes % (Manual) Monocytes % (Manual) Eosinophils % (Manual) Basophils % (Manual) Seg Neutrophils # Seg Neutrophils # Man Lymphocytes # (Manual) Monocytes # (Manual) Eosinophils # (Manual) Nucleated RBC % Basophils # (Manual) PT INR APTT Heparin Anti-Xa Level 0.16 L ABG pH POC ABG pO2 ABG pO2 ABG HCO3 ABG O2 Saturation ABG Base Excess POC ABG pCO2 ABG Hemoglobin ABG Oxyhemoglobin ABG Sodium ABG Chloride ABG Glucose Oxyhemoglobin Sodium Potassium Chloride Carbon Dioxide BUN Creatinine Glucose POC Glucose 121 H 119 H Lactic Acid Calcium Phosphorus Magnesium AST ALT Lactate Dehydrogenase Total Bilirubin Direct Bilirubin CK-MB (CK-2) C-Reactive Protein NT-Pro-B Natriuret Pep Total Protein Albumin Arterial Blood Glucose Urine WBC (Auto) Urine Creatinine 01/04/20 01/04/20 01/04/20 09:50 09:50 12:18 WBC 15.4 H RBC 3.30 L Hgb 8.7 L Hct 28.2 L MCHC 31 L RDW 17.0 H MCV MCH 26 L Lymph % (Auto) Mineral % (Auto) 7.6 H Mineral # Eos # Lymph # (Auto) Mineral # (Auto) 1.2 H Eos # (Auto) Seg Neutrophils % 75.4 H Seg Neuts % (Manual) Baso # (Auto) Lymphocytes % (Manual) Monocytes % (Manual) Eosinophils % (Manual) Basophils % (Manual) Seg Neutrophils # 11.6 H Seg Neutrophils # Man Lymphocytes # (Manual) Monocytes # (Manual) Eosinophils # (Manual) Nucleated RBC % Basophils # (Manual) PT INR APTT Heparin Anti-Xa Level ABG pH POC ABG pO2 ABG pO2 ABG HCO3 ABG O2 Saturation ABG Base Excess POC ABG pCO2 ABG Hemoglobin ABG Oxyhemoglobin ABG Sodium ABG Chloride ABG Glucose Oxyhemoglobin Sodium 148 H Potassium 3.5 L Chloride Carbon Dioxide 32 H BUN Creatinine 0.6 L Glucose 114 H POC Glucose 111 H Lactic Acid Calcium Phosphorus Magnesium AST ALT 59 H Lactate Dehydrogenase Total Bilirubin Direct Bilirubin CK-MB (CK-2) C-Reactive Protein NT-Pro-B Natriuret Pep Total Protein Albumin 2.6 L Arterial Blood Glucose Urine WBC (Auto) Urine Creatinine 01/05/20 01/05/20 01/05/20 04:05 04:05 05:19 WBC 11.7 H RBC 3.50 L Hgb 9.3 L Hct 29.9 L MCHC 31 L RDW 16.6 H MCV MCH 27 L Lymph % (Auto) 13.1 L [place] % (Auto) 9.7 H Mineral # Eos # Lymph # (Auto) Mineral # (Auto) 1.1 H Eos # (Auto) Seg Neutrophils % 74.0 H Seg Neuts % (Manual) Baso # (Auto) Lymphocytes % (Manual) Monocytes % (Manual) Eosinophils % (Manual) Basophils % (Manual) Seg Neutrophils # 8.6 H Seg Neutrophils # Man Lymphocytes # (Manual) Monocytes # (Manual) Eosinophils # (Manual) Nucleated RBC % Basophils # (Manual) PT INR APTT Heparin Anti-Xa Level ABG pH POC ABG pO2 ABG pO2 ABG HCO3 ABG O2 Saturation ABG Base Excess POC ABG pCO2 ABG Hemoglobin ABG Oxyhemoglobin ABG Sodium ABG Chloride ABG Glucose Oxyhemoglobin Sodium 151 H Potassium Chloride Carbon Dioxide 34 H BUN Creatinine 0.7 L Glucose POC Glucose 112 H Lactic Acid Calcium Phosphorus Magnesium AST ALT 59 H Lactate Dehydrogenase Total Bilirubin Direct Bilirubin CK-MB (CK-2) C-Reactive Protein NT-Pro-B Natriuret Pep Total Protein 5.8 L Albumin 2.6 L Arterial Blood Glucose Urine WBC (Auto) Urine Creatinine 01/05/20 01/06/20 01/06/20 16:04 00:23 04:44 WBC RBC 3.36 L Hgb 8.9 L Hct 28.7 L MCHC 31 L RDW 16.9 H MCV MCH 26 L Lymph % (Auto) Mineral % (Auto) 9.4 H Mineral # Eos # Lymph # (Auto) Mineral # (Auto) Eos # (Auto) Seg Neutrophils % Seg Neuts % (Manual) Baso # (Auto) Lymphocytes % (Manual) Monocytes % (Manual) Eosinophils % (Manual) Basophils % (Manual) Seg Neutrophils # Seg Neutrophils # Man Lymphocytes # (Manual) Monocytes # (Manual) Eosinophils # (Manual) Nucleated RBC % Basophils # (Manual) PT INR APTT Heparin Anti-Xa Level ABG pH POC ABG pO2 ABG pO2 ABG HCO3 ABG O2 Saturation ABG Base Excess POC ABG pCO2 ABG Hemoglobin ABG Oxyhemoglobin ABG Sodium ABG Chloride ABG Glucose Oxyhemoglobin Sodium 151 H Potassium 3.2 L Chloride Carbon Dioxide 34 H BUN Creatinine 0.6 L Glucose POC Glucose 107 H Lactic Acid Calcium Phosphorus Magnesium AST ALT Lactate Dehydrogenase Total Bilirubin Direct Bilirubin CK-MB (CK-2) C-Reactive Protein NT-Pro-B Natriuret Pep Total Protein Albumin Arterial Blood Glucose Urine WBC (Auto) Urine Creatinine 01/06/20 01/06/20 01/06/20 04:44 05:33 12:04 WBC RBC Hgb Hct MCHC RDW MCV MCH Lymph % (Auto) Mineral % (Auto) Mineral # Eos # Lymph # (Auto) Mineral # (Auto) Eos # (Auto) Seg Neutrophils % Seg Neuts % (Manual) Baso # (Auto) Lymphocytes % (Manual) Monocytes % (Manual) Eosinophils % (Manual) Basophils % (Manual) Seg Neutrophils # Seg Neutrophils # Man Lymphocytes # (Manual) Monocytes # (Manual) Eosinophils # (Manual) Nucleated RBC % Basophils # (Manual) PT INR APTT Heparin Anti-Xa Level ABG pH POC ABG pO2 ABG pO2 ABG HCO3 ABG O2 Saturation ABG Base Excess POC ABG pCO2 ABG Hemoglobin ABG Oxyhemoglobin ABG Sodium ABG Chloride ABG Glucose Oxyhemoglobin Sodium 151 H Potassium 3.4 L Chloride Carbon Dioxide 33 H BUN Creatinine 0.6 L Glucose 118 H POC Glucose 118 H 123 H Lactic Acid Calcium Phosphorus Magnesium AST ALT Lactate Dehydrogenase Total Bilirubin Direct Bilirubin CK-MB (CK-2) C-Reactive Protein NT-Pro-B Natriuret Pep Total Protein 6.2 L Albumin 2.6 L Arterial Blood Glucose Urine WBC (Auto) Urine Creatinine 01/06/20 01/07/20 01/07/20 17:54 00:06 04:10 WBC RBC 3.42 L Hgb 8.9 L Hct 29.0 L MCHC 31 L RDW 17.1 H MCV MCH 26 L Lymph % (Auto) Mineral % (Auto) 8.4 H Mineral # Eos # Lymph # (Auto) Mineral # (Auto) Eos # (Auto) Seg Neutrophils % Seg Neuts % (Manual) Baso # (Auto) Lymphocytes % (Manual) Monocytes % (Manual) Eosinophils % (Manual) Basophils % (Manual) Seg Neutrophils # Seg Neutrophils # Man Lymphocytes # (Manual) Monocytes # (Manual) Eosinophils # (Manual) Nucleated RBC % Basophils # (Manual) PT INR APTT Heparin Anti-Xa Level ABG pH POC ABG pO2 ABG pO2 ABG HCO3 ABG O2 Saturation ABG Base Excess POC ABG pCO2 ABG Hemoglobin ABG Oxyhemoglobin ABG Sodium ABG Chloride ABG Glucose Oxyhemoglobin Sodium Potassium Chloride Carbon Dioxide BUN Creatinine Glucose POC Glucose 112 H 126 H Lactic Acid Calcium Phosphorus Magnesium AST ALT Lactate Dehydrogenase Total Bilirubin Direct Bilirubin CK-MB (CK-2) C-Reactive Protein NT-Pro-B Natriuret Pep Total Protein Albumin Arterial Blood Glucose Urine WBC (Auto) Urine Creatinine 01/07/20 01/07/20 01/07/20 04:10 05:59 12:27 WBC RBC Hgb Hct MCHC RDW MCV MCH Lymph % (Auto) Mineral % (Auto) Mineral # Eos # Lymph # (Auto) Mineral # (Auto) Eos # (Auto) Seg Neutrophils % Seg Neuts % (Manual) Baso # (Auto) Lymphocytes % (Manual) Monocytes % (Manual) Eosinophils % (Manual) Basophils % (Manual) Seg Neutrophils # Seg Neutrophils # Man Lymphocytes # (Manual) Monocytes # (Manual) Eosinophils # (Manual) Nucleated RBC % Basophils # (Manual) PT INR APTT Heparin Anti-Xa Level ABG pH POC ABG pO2 ABG pO2 ABG HCO3 ABG O2 Saturation ABG Base Excess POC ABG pCO2 ABG Hemoglobin ABG Oxyhemoglobin ABG Sodium ABG Chloride ABG Glucose Oxyhemoglobin Sodium 153 H Potassium 3.5 L Chloride Carbon Dioxide 34 H BUN Creatinine 0.6 L Glucose 121 H POC Glucose 121 H 126 H Lactic Acid Calcium Phosphorus Magnesium AST ALT Lactate Dehydrogenase Total Bilirubin Direct Bilirubin CK-MB (CK-2) C-Reactive Protein NT-Pro-B Natriuret Pep Total Protein 5.9 L Albumin 2.4 L Arterial Blood Glucose Urine WBC (Auto) Urine Creatinine 01/07/20 01/08/20 01/08/20 18:12 00:03 05:41 WBC RBC Hgb Hct MCHC RDW MCV MCH Lymph % (Auto) Mineral % (Auto) Mineral # Eos # Lymph # (Auto) Mineral # (Auto) Eos # (Auto) Seg Neutrophils % Seg Neuts % (Manual) Baso # (Auto) Lymphocytes % (Manual) Monocytes % (Manual) Eosinophils % (Manual) Basophils % (Manual) Seg Neutrophils # Seg Neutrophils # Man Lymphocytes # (Manual) Monocytes # (Manual) Eosinophils # (Manual) Nucleated RBC % Basophils # (Manual) PT INR APTT Heparin Anti-Xa Level ABG pH POC ABG pO2 ABG pO2 ABG HCO3 ABG O2 Saturation ABG Base Excess POC ABG pCO2 ABG Hemoglobin ABG Oxyhemoglobin ABG Sodium ABG Chloride ABG Glucose Oxyhemoglobin Sodium Potassium Chloride Carbon Dioxide BUN Creatinine Glucose POC Glucose 124 H 130 H 138 H Lactic Acid Calcium Phosphorus Magnesium AST ALT Lactate Dehydrogenase Total Bilirubin Direct Bilirubin CK-MB (CK-2) C-Reactive Protein NT-Pro-B Natriuret Pep Total Protein Albumin Arterial Blood Glucose Urine WBC (Auto) Urine Creatinine 01/08/20 01/08/20 01/08/20 09:28 11:42 18:21 WBC RBC Hgb Hct MCHC RDW MCV MCH Lymph % (Auto) Mineral % (Auto) Mineral # Eos # Lymph # (Auto) Mineral # (Auto) Eos # (Auto) Seg Neutrophils % Seg Neuts % (Manual) Baso # (Auto) Lymphocytes % (Manual) Monocytes % (Manual) Eosinophils % (Manual) Basophils % (Manual) Seg Neutrophils # Seg Neutrophils # Man Lymphocytes # (Manual) Monocytes # (Manual) Eosinophils # (Manual) Nucleated RBC % Basophils # (Manual) PT INR APTT Heparin Anti-Xa Level ABG pH POC ABG pO2 ABG pO2 ABG HCO3 ABG O2 Saturation ABG Base Excess POC ABG pCO2 ABG Hemoglobin ABG Oxyhemoglobin ABG Sodium ABG Chloride ABG Glucose Oxyhemoglobin Sodium Potassium Chloride Carbon Dioxide BUN Creatinine Glucose POC Glucose 181 H 150 H 129 H Lactic Acid Calcium Phosphorus Magnesium AST ALT Lactate Dehydrogenase Total Bilirubin Direct Bilirubin CK-MB (CK-2) C-Reactive Protein NT-Pro-B Natriuret Pep Total Protein Albumin Arterial Blood Glucose Urine WBC (Auto) Urine Creatinine 01/08/20 01/08/20 01/09/20 19:25 23:55 04:11 WBC RBC 3.43 L Hgb 8.9 L Hct 28.7 L MCHC 31 L RDW 17.6 H MCV MCH 26 L Lymph % (Auto) Mineral % (Auto) 8.6 H Mineral # Eos # Lymph # (Auto) Mineral # (Auto) Eos # (Auto) Seg Neutrophils % Seg Neuts % (Manual) Baso # (Auto) Lymphocytes % (Manual) Monocytes % (Manual) Eosinophils % (Manual) Basophils % (Manual) Seg Neutrophils # Seg Neutrophils # Man Lymphocytes # (Manual) Monocytes # (Manual) Eosinophils # (Manual) Nucleated RBC % Basophils # (Manual) PT INR APTT Heparin Anti-Xa Level ABG pH POC ABG pO2 ABG pO2 ABG HCO3 ABG O2 Saturation ABG Base Excess POC ABG pCO2 ABG Hemoglobin ABG Oxyhemoglobin ABG Sodium ABG Chloride ABG Glucose Oxyhemoglobin Sodium Potassium Chloride Carbon Dioxide BUN Creatinine 0.7 L Glucose 117 H POC Glucose 132 H Lactic Acid Calcium Phosphorus Magnesium AST ALT Lactate Dehydrogenase Total Bilirubin Direct Bilirubin CK-MB (CK-2) C-Reactive Protein NT-Pro-B Natriuret Pep Total Protein Albumin Arterial Blood Glucose Urine WBC (Auto) Urine Creatinine 01/09/20 01/09/20 01/09/20 04:11 05:38 22:58 WBC RBC Hgb Hct MCHC RDW MCV MCH Lymph % (Auto) Mineral % (Auto) Mineral # Eos # Lymph # (Auto) Mineral # (Auto) Eos # (Auto) Seg Neutrophils % Seg Neuts % (Manual) Baso # (Auto) Lymphocytes % (Manual) Monocytes % (Manual) Eosinophils % (Manual) Basophils % (Manual) Seg Neutrophils # Seg Neutrophils # Man Lymphocytes # (Manual) Monocytes # (Manual) Eosinophils # (Manual) Nucleated RBC % Basophils # (Manual) PT INR APTT Heparin Anti-Xa Level ABG pH POC ABG pO2 ABG pO2 ABG HCO3 ABG O2 Saturation ABG Base Excess POC ABG pCO2 ABG Hemoglobin ABG Oxyhemoglobin ABG Sodium ABG Chloride ABG Glucose Oxyhemoglobin Sodium 147 H Potassium 3.3 L D Chloride Carbon Dioxide 32 H BUN Creatinine 0.6 L Glucose 106 H POC Glucose 107 H 113 H Lactic Acid Calcium Phosphorus Magnesium AST ALT Lactate Dehydrogenase Total Bilirubin Direct Bilirubin CK-MB (CK-2) C-Reactive Protein NT-Pro-B Natriuret Pep Total Protein Albumin Arterial Blood Glucose Urine WBC (Auto) Urine Creatinine 01/10/20 01/10/20 01/10/20 04:05 11:36 17:54 WBC RBC Hgb Hct MCHC RDW MCV MCH Lymph % (Auto) Mineral % (Auto) Mineral # Eos # Lymph # (Auto) Mineral # (Auto) Eos # (Auto) Seg Neutrophils % Seg Neuts % (Manual) Baso # (Auto) Lymphocytes % (Manual) Monocytes % (Manual) Eosinophils % (Manual) Basophils % (Manual) Seg Neutrophils # Seg Neutrophils # Man Lymphocytes # (Manual) Monocytes # (Manual) Eosinophils # (Manual) Nucleated RBC % Basophils # (Manual) PT INR APTT Heparin Anti-Xa Level ABG pH POC ABG pO2 ABG pO2 ABG HCO3 ABG O2 Saturation ABG Base Excess POC ABG pCO2 ABG Hemoglobin ABG Oxyhemoglobin ABG Sodium ABG Chloride ABG Glucose Oxyhemoglobin Sodium Potassium Chloride Carbon Dioxide BUN Creatinine 0.7 L Glucose 110 H POC Glucose 129 H 117 H Lactic Acid Calcium Phosphorus Magnesium AST ALT Lactate Dehydrogenase Total Bilirubin Direct Bilirubin CK-MB (CK-2) C-Reactive Protein NT-Pro-B Natriuret Pep Total Protein Albumin Arterial Blood Glucose Urine WBC (Auto) Urine Creatinine 01/10/20 01/11/20 01/11/20 23:52 03:19 12:09 WBC RBC Hgb Hct MCHC RDW MCV MCH Lymph % (Auto) Mineral % (Auto) Mineral # Eos # Lymph # (Auto) Mineral # (Auto) Eos # (Auto) Seg Neutrophils % Seg Neuts % (Manual) Baso # (Auto) Lymphocytes % (Manual) Monocytes % (Manual) Eosinophils % (Manual) Basophils % (Manual) Seg Neutrophils # Seg Neutrophils # Man Lymphocytes # (Manual) Monocytes # (Manual) Eosinophils # (Manual) Nucleated RBC % Basophils # (Manual) PT INR APTT Heparin Anti-Xa Level ABG pH POC ABG pO2 ABG pO2 ABG HCO3 ABG O2 Saturation ABG Base Excess POC ABG pCO2 ABG Hemoglobin ABG Oxyhemoglobin ABG Sodium ABG Chloride ABG Glucose Oxyhemoglobin Sodium Potassium Chloride Carbon Dioxide BUN Creatinine Glucose POC Glucose 117 H 136 H 115 H Lactic Acid Calcium Phosphorus Magnesium AST ALT Lactate Dehydrogenase Total Bilirubin Direct Bilirubin CK-MB (CK-2) C-Reactive Protein NT-Pro-B Natriuret Pep Total Protein Albumin Arterial Blood Glucose Urine WBC (Auto) Urine Creatinine 01/11/20 01/11/20 01/12/20 18:27 23:28 00:23 WBC RBC Hgb 9.8 L Hct 31.6 L MCHC 31 L RDW 17.8 H MCV 83 L MCH 26 L Lymph % (Auto) Mineral % (Auto) 8.0 H Mineral # Eos # Lymph # (Auto) Mineral # (Auto) Eos # (Auto) Seg Neutrophils % Seg Neuts % (Manual) Baso # (Auto) Lymphocytes % (Manual) Monocytes % (Manual) Eosinophils % (Manual) Basophils % (Manual) Seg Neutrophils # Seg Neutrophils # Man Lymphocytes # (Manual) Monocytes # (Manual) Eosinophils # (Manual) Nucleated RBC % Basophils # (Manual) PT INR APTT Heparin Anti-Xa Level ABG pH POC ABG pO2 ABG pO2 ABG HCO3 ABG O2 Saturation ABG Base Excess POC ABG pCO2 ABG Hemoglobin ABG Oxyhemoglobin ABG Sodium ABG Chloride ABG Glucose Oxyhemoglobin Sodium Potassium Chloride Carbon Dioxide BUN Creatinine Glucose POC Glucose 118 H 122 H Lactic Acid Calcium Phosphorus Magnesium AST ALT Lactate Dehydrogenase Total Bilirubin Direct Bilirubin CK-MB (CK-2) C-Reactive Protein NT-Pro-B Natriuret Pep Total Protein Albumin Arterial Blood Glucose Urine WBC (Auto) Urine Creatinine 01/12/20 01/12/20 01/12/20 00:23 04:18 04:18 WBC RBC Hgb 9.6 L Hct 30.9 L MCHC 31 L RDW 17.3 H MCV 81 L MCH 25 L Lymph % (Auto) Mineral % (Auto) Mineral # Eos # Lymph # (Auto) Mineral # (Auto) Eos # (Auto) Seg Neutrophils % Seg Neuts % (Manual) Baso # (Auto) Lymphocytes % (Manual) Monocytes % (Manual) Eosinophils % (Manual) Basophils % (Manual) Seg Neutrophils # Seg Neutrophils # Man Lymphocytes # (Manual) Monocytes # (Manual) Eosinophils # (Manual) Nucleated RBC % Basophils # (Manual) PT INR APTT Heparin Anti-Xa Level ABG pH POC ABG pO2 ABG pO2 ABG HCO3 ABG O2 Saturation ABG Base Excess POC ABG pCO2 ABG Hemoglobin ABG Oxyhemoglobin ABG Sodium ABG Chloride ABG Glucose Oxyhemoglobin Sodium Potassium Chloride Carbon Dioxide BUN Creatinine 0.7 L 0.7 L Glucose 111 H 108 H POC Glucose Lactic Acid Calcium Phosphorus Magnesium AST ALT Lactate Dehydrogenase Total Bilirubin Direct Bilirubin CK-MB (CK-2) C-Reactive Protein NT-Pro-B Natriuret Pep Total Protein Albumin 2.6 L Arterial Blood Glucose Urine WBC (Auto) Urine Creatinine 01/12/20 01/12/20 01/12/20 06:03 12:27 13:58 WBC RBC Hgb Hct MCHC RDW MCV MCH Lymph % (Auto) Mineral % (Auto) Mineral # Eos # Lymph # (Auto) Mineral # (Auto) Eos # (Auto) Seg Neutrophils % Seg Neuts % (Manual) Baso # (Auto) Lymphocytes % (Manual) Monocytes % (Manual) Eosinophils % (Manual) Basophils % (Manual) Seg Neutrophils # Seg Neutrophils # Man Lymphocytes # (Manual) Monocytes # (Manual) Eosinophils # (Manual) Nucleated RBC % Basophils # (Manual) PT INR APTT Heparin Anti-Xa Level ABG pH 7.453 H POC ABG pO2 76.6 L ABG pO2 ABG HCO3 ABG O2 Saturation ABG Base Excess POC ABG pCO2 ABG Hemoglobin 10.3 L ABG Oxyhemoglobin ABG Sodium ABG Chloride ABG Glucose 99 H Oxyhemoglobin Sodium Potassium Chloride Carbon Dioxide BUN Creatinine Glucose POC Glucose 128 H 121 H Lactic Acid Calcium Phosphorus Magnesium AST ALT Lactate Dehydrogenase Total Bilirubin Direct Bilirubin CK-MB (CK-2) C-Reactive Protein NT-Pro-B Natriuret Pep Total Protein Albumin Arterial Blood Glucose 99 H Urine WBC (Auto) Urine Creatinine 10/20/20 10/21/20 10/21/20 18:24 12:01 17:46 WBC RBC Hgb Hct MCHC RDW MCV MCH Lymph % (Auto) Mineral % (Auto) Mineral # Eos # Lymph # (Auto) Mineral # (Auto) Eos # (Auto) Seg Neutrophils % Seg Neuts % (Manual) Baso # (Auto) Lymphocytes % (Manual) Monocytes % (Manual) Eosinophils % (Manual) Basophils % (Manual) Seg Neutrophils # Seg Neutrophils # Man Lymphocytes # (Manual) Monocytes # (Manual) Eosinophils # (Manual) Nucleated RBC % Basophils # (Manual) PT INR APTT Heparin Anti-Xa Level ABG pH POC ABG pO2 ABG pO2 ABG HCO3 ABG O2 Saturation ABG Base Excess POC ABG pCO2 ABG Hemoglobin ABG Oxyhemoglobin ABG Sodium ABG Chloride ABG Glucose Oxyhemoglobin Sodium Potassium Chloride Carbon Dioxide BUN Creatinine Glucose POC Glucose 119 H 107 H 124 H Lactic Acid Calcium Phosphorus Magnesium AST ALT Lactate Dehydrogenase Total Bilirubin Direct Bilirubin CK-MB (CK-2) C-Reactive Protein NT-Pro-B Natriuret Pep Total Protein Albumin Arterial Blood Glucose Urine WBC (Auto) Urine Creatinine 01/13/20 01/14/20 01/14/20 20:40 00:10 05:33 WBC RBC Hgb Hct MCHC RDW MCV MCH Lymph % (Auto) Mineral % (Auto) Mineral # Eos # Lymph # (Auto) Mineral # (Auto) Eos # (Auto) Seg Neutrophils % Seg Neuts % (Manual) Baso # (Auto) Lymphocytes % (Manual) Monocytes % (Manual) Eosinophils % (Manual) Basophils % (Manual) Seg Neutrophils # Seg Neutrophils # Man Lymphocytes # (Manual) Monocytes # (Manual) Eosinophils # (Manual) Nucleated RBC % Basophils # (Manual) PT INR APTT Heparin Anti-Xa Level ABG pH POC ABG pO2 ABG pO2 65.3 L ABG HCO3 31.8 H ABG O2 Saturation 93.5 L ABG Base Excess 6.7 H POC ABG pCO2 ABG Hemoglobin 13.3 L ABG Oxyhemoglobin ABG Sodium ABG Chloride ABG Glucose Oxyhemoglobin 90.9 L Sodium Potassium Chloride Carbon Dioxide BUN Creatinine Glucose POC Glucose 111 H 111 H Lactic Acid Calcium Phosphorus Magnesium AST ALT Lactate Dehydrogenase Total Bilirubin Direct Bilirubin CK-MB (CK-2) C-Reactive Protein NT-Pro-B Natriuret Pep Total Protein Albumin Arterial Blood Glucose Urine WBC (Auto) Urine Creatinine 01/14/20 01/14/20 01/14/20 12:10 16:14 16:14 WBC RBC Hgb 10.6 L Hct 34.2 L MCHC 31 L RDW 18.3 H MCV 83 L MCH 26 L Lymph % (Auto) Mineral % (Auto) 7.4 H Mineral # Eos # Lymph # (Auto) Mineral # (Auto) Eos # (Auto) Seg Neutrophils % 71.9 H Seg Neuts % (Manual) Baso # (Auto) Lymphocytes % (Manual) Monocytes % (Manual) Eosinophils % (Manual) Basophils % (Manual) Seg Neutrophils # Seg Neutrophils # Man Lymphocytes # (Manual) Monocytes # (Manual) Eosinophils # (Manual) Nucleated RBC % Basophils # (Manual) PT INR APTT Heparin Anti-Xa Level ABG pH POC ABG pO2 ABG pO2 ABG HCO3 ABG O2 Saturation ABG Base Excess POC ABG pCO2 ABG Hemoglobin ABG Oxyhemoglobin ABG Sodium ABG Chloride ABG Glucose Oxyhemoglobin Sodium Potassium Chloride Carbon Dioxide 31 H BUN Creatinine 0.6 L Glucose 131 H POC Glucose 139 H Lactic Acid Calcium Phosphorus Magnesium AST ALT Lactate Dehydrogenase Total Bilirubin Direct Bilirubin CK-MB (CK-2) C-Reactive Protein NT-Pro-B Natriuret Pep Total Protein Albumin Arterial Blood Glucose Urine WBC (Auto) Urine Creatinine 01/14/20 01/15/20 01/15/20 18:05 00:52 05:35 WBC RBC Hgb Hct MCHC RDW MCV MCH Lymph % (Auto) Mineral % (Auto) Mineral # Eos # Lymph # (Auto) Mineral # (Auto) Eos # (Auto) Seg Neutrophils % Seg Neuts % (Manual) Baso # (Auto) Lymphocytes % (Manual) Monocytes % (Manual) Eosinophils % (Manual) Basophils % (Manual) Seg Neutrophils # Seg Neutrophils # Man Lymphocytes # (Manual) Monocytes # (Manual) Eosinophils # (Manual) Nucleated RBC % Basophils # (Manual) PT INR APTT Heparin Anti-Xa Level ABG pH POC ABG pO2 ABG pO2 ABG HCO3 ABG O2 Saturation ABG Base Excess POC ABG pCO2 ABG Hemoglobin ABG Oxyhemoglobin ABG Sodium ABG Chloride ABG Glucose Oxyhemoglobin Sodium Potassium Chloride Carbon Dioxide BUN Creatinine Glucose POC Glucose 147 H 140 H 159 H Lactic Acid Calcium Phosphorus Magnesium AST ALT Lactate Dehydrogenase Total Bilirubin Direct Bilirubin CK-MB (CK-2) C-Reactive Protein NT-Pro-B Natriuret Pep Total Protein Albumin Arterial Blood Glucose Urine WBC (Auto) Urine Creatinine 01/15/20 01/15/20 01/16/20 12:52 17:43 00:32 WBC RBC Hgb Hct MCHC RDW MCV MCH Lymph % (Auto) Mineral % (Auto) Mineral # Eos # Lymph # (Auto) Mineral # (Auto) Eos # (Auto) Seg Neutrophils % Seg Neuts % (Manual) Baso # (Auto) Lymphocytes % (Manual) Monocytes % (Manual) Eosinophils % (Manual) Basophils % (Manual) Seg Neutrophils # Seg Neutrophils # Man Lymphocytes # (Manual) Monocytes # (Manual) Eosinophils # (Manual) Nucleated RBC % Basophils # (Manual) PT INR APTT Heparin Anti-Xa Level ABG pH POC ABG pO2 ABG pO2 ABG HCO3 ABG O2 Saturation ABG Base Excess POC ABG pCO2 ABG Hemoglobin ABG Oxyhemoglobin ABG Sodium ABG Chloride ABG Glucose Oxyhemoglobin Sodium Potassium Chloride Carbon Dioxide BUN Creatinine Glucose POC Glucose 164 H 167 H 153 H Lactic Acid Calcium Phosphorus Magnesium AST ALT Lactate Dehydrogenase Total Bilirubin Direct Bilirubin CK-MB (CK-2) C-Reactive Protein NT-Pro-B Natriuret Pep Total Protein Albumin Arterial Blood Glucose Urine WBC (Auto) Urine Creatinine 01/16/20 01/16/20 01/17/20 05:46 11:48 06:38 WBC RBC Hgb Hct MCHC RDW MCV MCH Lymph % (Auto) Mineral % (Auto) Mineral # Eos # Lymph # (Auto) Mineral # (Auto) Eos # (Auto) Seg Neutrophils % Seg Neuts % (Manual) Baso # (Auto) Lymphocytes % (Manual) Monocytes % (Manual) Eosinophils % (Manual) Basophils % (Manual) Seg Neutrophils # Seg Neutrophils # Man Lymphocytes # (Manual) Monocytes # (Manual) Eosinophils # (Manual) Nucleated RBC % Basophils # (Manual) PT INR APTT Heparin Anti-Xa Level ABG pH POC ABG pO2 ABG pO2 ABG HCO3 ABG O2 Saturation ABG Base Excess POC ABG pCO2 ABG Hemoglobin ABG Oxyhemoglobin ABG Sodium ABG Chloride ABG Glucose Oxyhemoglobin Sodium Potassium Chloride Carbon Dioxide BUN Creatinine Glucose POC Glucose 163 H 155 H 116 H Lactic Acid Calcium Phosphorus Magnesium AST ALT Lactate Dehydrogenase Total Bilirubin Direct Bilirubin CK-MB (CK-2) C-Reactive Protein NT-Pro-B Natriuret Pep Total Protein Albumin Arterial Blood Glucose Urine WBC (Auto) Urine Creatinine 01/17/20 01/17/20 01/18/20 11:36 17:43 00:12 WBC RBC Hgb Hct MCHC RDW MCV MCH Lymph % (Auto) Mineral % (Auto) Mineral # Eos # Lymph # (Auto) Mineral # (Auto) Eos # (Auto) Seg Neutrophils % Seg Neuts % (Manual) Baso # (Auto) Lymphocytes % (Manual) Monocytes % (Manual) Eosinophils % (Manual) Basophils % (Manual) Seg Neutrophils # Seg Neutrophils # Man Lymphocytes # (Manual) Monocytes # (Manual) Eosinophils # (Manual) Nucleated RBC % Basophils # (Manual) PT INR APTT Heparin Anti-Xa Level ABG pH POC ABG pO2 ABG pO2 ABG HCO3 ABG O2 Saturation ABG Base Excess POC ABG pCO2 ABG Hemoglobin ABG Oxyhemoglobin ABG Sodium ABG Chloride ABG Glucose Oxyhemoglobin Sodium Potassium Chloride Carbon Dioxide BUN Creatinine Glucose POC Glucose 110 H 134 H 108 H Lactic Acid Calcium Phosphorus Magnesium AST ALT Lactate Dehydrogenase Total Bilirubin Direct Bilirubin CK-MB (CK-2) C-Reactive Protein NT-Pro-B Natriuret Pep Total Protein Albumin Arterial Blood Glucose Urine WBC (Auto) Urine Creatinine 01/18/20 01/18/20 01/18/20 05:37 06:46 06:46 WBC RBC Hgb 10.1 L Hct 32.2 L MCHC 31 L RDW 18.1 H MCV 81 L MCH 25 L Lymph % (Auto) Mineral % (Auto) Mineral # Eos # Lymph # (Auto) Mineral # (Auto) Eos # (Auto) Seg Neutrophils % 71.9 H Seg Neuts % (Manual) Baso # (Auto) Lymphocytes % (Manual) Monocytes % (Manual) Eosinophils % (Manual) Basophils % (Manual) Seg Neutrophils # Seg Neutrophils # Man Lymphocytes # (Manual) Monocytes # (Manual) Eosinophils # (Manual) Nucleated RBC % Basophils # (Manual) PT INR APTT Heparin Anti-Xa Level ABG pH POC ABG pO2 ABG pO2 ABG HCO3 ABG O2 Saturation ABG Base Excess POC ABG pCO2 ABG Hemoglobin ABG Oxyhemoglobin ABG Sodium ABG Chloride ABG Glucose Oxyhemoglobin Sodium Potassium Chloride Carbon Dioxide BUN Creatinine 0.7 L Glucose 155 H POC Glucose 168 H Lactic Acid Calcium Phosphorus Magnesium AST ALT Lactate Dehydrogenase Total Bilirubin Direct Bilirubin CK-MB (CK-2) C-Reactive Protein NT-Pro-B Natriuret Pep Total Protein Albumin Arterial Blood Glucose Urine WBC (Auto) Urine Creatinine 01/18/20 01/18/20 01/18/20 12:05 17:14 23:28 WBC RBC Hgb Hct MCHC RDW MCV MCH Lymph % (Auto) Mineral % (Auto) Mineral # Eos # Lymph # (Auto) Mineral # (Auto) Eos # (Auto) Seg Neutrophils % Seg Neuts % (Manual) Baso # (Auto) Lymphocytes % (Manual) Monocytes % (Manual) Eosinophils % (Manual) Basophils % (Manual) Seg Neutrophils # Seg Neutrophils # Man Lymphocytes # (Manual) Monocytes # (Manual) Eosinophils # (Manual) Nucleated RBC % Basophils # (Manual) PT INR APTT Heparin Anti-Xa Level ABG pH POC ABG pO2 ABG pO2 ABG HCO3 ABG O2 Saturation ABG Base Excess POC ABG pCO2 ABG Hemoglobin ABG Oxyhemoglobin ABG Sodium ABG Chloride ABG Glucose Oxyhemoglobin Sodium Potassium Chloride Carbon Dioxide BUN Creatinine Glucose POC Glucose 128 H 126 H 128 H Lactic Acid Calcium Phosphorus Magnesium AST ALT Lactate Dehydrogenase Total Bilirubin Direct Bilirubin CK-MB (CK-2) C-Reactive Protein NT-Pro-B Natriuret Pep Total Protein Albumin Arterial Blood Glucose Urine WBC (Auto) Urine Creatinine 01/19/20 01/19/20 01/19/20 05:39 12:33 17:36 WBC RBC Hgb Hct MCHC RDW MCV MCH Lymph % (Auto) Mineral % (Auto) Mineral # Eos # Lymph # (Auto) Mineral # (Auto) Eos # (Auto) Seg Neutrophils % Seg Neuts % (Manual) Baso # (Auto) Lymphocytes % (Manual) Monocytes % (Manual) Eosinophils % (Manual) Basophils % (Manual) Seg Neutrophils # Seg Neutrophils # Man Lymphocytes # (Manual) Monocytes # (Manual) Eosinophils # (Manual) Nucleated RBC % Basophils # (Manual) PT INR APTT Heparin Anti-Xa Level ABG pH POC ABG pO2 ABG pO2 ABG HCO3 ABG O2 Saturation ABG Base Excess POC ABG pCO2 ABG Hemoglobin ABG Oxyhemoglobin ABG Sodium ABG Chloride ABG Glucose Oxyhemoglobin Sodium Potassium Chloride Carbon Dioxide BUN Creatinine Glucose POC Glucose 164 H 171 H 152 H Lactic Acid Calcium Phosphorus Magnesium AST ALT Lactate Dehydrogenase Total Bilirubin Direct Bilirubin CK-MB (CK-2) C-Reactive Protein NT-Pro-B Natriuret Pep Total Protein Albumin Arterial Blood Glucose Urine WBC (Auto) Urine Creatinine 01/20/20 01/20/20 01/20/20 00:12 05:20 05:35 WBC RBC Hgb 9.2 L Hct 29.4 L MCHC 31 L RDW 17.9 H MCV 81 L MCH 25 L Lymph % (Auto) Mineral % (Auto) Mineral # Eos # Lymph # (Auto) Mineral # (Auto) Eos # (Auto) Seg Neutrophils % Seg Neuts % (Manual) Baso # (Auto) Lymphocytes % (Manual) Monocytes % (Manual) Eosinophils % (Manual) Basophils % (Manual) Seg Neutrophils # Seg Neutrophils # Man Lymphocytes # (Manual) Monocytes # (Manual) Eosinophils # (Manual) Nucleated RBC % Basophils # (Manual) PT INR APTT Heparin Anti-Xa Level ABG pH POC ABG pO2 ABG pO2 ABG HCO3 ABG O2 Saturation ABG Base Excess POC ABG pCO2 ABG Hemoglobin ABG Oxyhemoglobin ABG Sodium ABG Chloride ABG Glucose Oxyhemoglobin Sodium Potassium Chloride Carbon Dioxide BUN Creatinine Glucose POC Glucose 120 H 136 H Lactic Acid Calcium Phosphorus Magnesium AST ALT Lactate Dehydrogenase Total Bilirubin Direct Bilirubin CK-MB (CK-2) C-Reactive Protein NT-Pro-B Natriuret Pep Total Protein Albumin Arterial Blood Glucose Urine WBC (Auto) Urine Creatinine 01/20/20 01/20/20 01/20/20 05:40 11:58 14:55 WBC RBC Hgb 9.0 L Hct 28.3 L MCHC RDW MCV MCH Lymph % (Auto) Mineral % (Auto) Mineral # Eos # Lymph # (Auto) Mineral # (Auto) Eos # (Auto) Seg Neutrophils % Seg Neuts % (Manual) Baso # (Auto) Lymphocytes % (Manual) Monocytes % (Manual) Eosinophils % (Manual) Basophils % (Manual) Seg Neutrophils # Seg Neutrophils # Man Lymphocytes # (Manual) Monocytes # (Manual) Eosinophils # (Manual) Nucleated RBC % Basophils # (Manual) PT INR APTT Heparin Anti-Xa Level ABG pH POC ABG pO2 ABG pO2 ABG HCO3 ABG O2 Saturation ABG Base Excess POC ABG pCO2 ABG Hemoglobin ABG Oxyhemoglobin ABG Sodium ABG Chloride ABG Glucose Oxyhemoglobin Sodium Potassium Chloride Carbon Dioxide 32 H BUN 22 H Creatinine 0.7 L Glucose 128 H POC Glucose 152 H Lactic Acid Calcium Phosphorus Magnesium AST ALT Lactate Dehydrogenase Total Bilirubin Direct Bilirubin CK-MB (CK-2) C-Reactive Protein NT-Pro-B Natriuret Pep Total Protein Albumin Arterial Blood Glucose Urine WBC (Auto) Urine Creatinine 01/20/20 01/20/20 01/20/20 14:55 18:14 21:35 WBC RBC Hgb Hct MCHC RDW MCV MCH Lymph % (Auto) Mineral % (Auto) Mineral # Eos # Lymph # (Auto) Mineral # (Auto) Eos # (Auto) Seg Neutrophils % Seg Neuts % (Manual) Baso # (Auto) Lymphocytes % (Manual) Monocytes % (Manual) Eosinophils % (Manual) Basophils % (Manual) Seg Neutrophils # Seg Neutrophils # Man Lymphocytes # (Manual) Monocytes # (Manual) Eosinophils # (Manual) Nucleated RBC % Basophils # (Manual) PT 20.4 H INR 1.72 H APTT 40.6 H Heparin Anti-Xa Level > 2.00 H ABG pH POC ABG pO2 ABG pO2 ABG HCO3 ABG O2 Saturation ABG Base Excess POC ABG pCO2 ABG Hemoglobin ABG Oxyhemoglobin ABG Sodium ABG Chloride ABG Glucose Oxyhemoglobin Sodium Potassium Chloride Carbon Dioxide BUN Creatinine Glucose POC Glucose 150 H Lactic Acid Calcium Phosphorus Magnesium AST ALT Lactate Dehydrogenase Total Bilirubin Direct Bilirubin CK-MB (CK-2) C-Reactive Protein NT-Pro-B Natriuret Pep Total Protein Albumin Arterial Blood Glucose Urine WBC (Auto) Urine Creatinine 01/21/20 01/21/20 01/21/20 00:30 05:47 05:59 WBC RBC Hgb Hct MCHC RDW MCV MCH Lymph % (Auto) Mineral % (Auto) Mineral # Eos # Lymph # (Auto) Mineral # (Auto) Eos # (Auto) Seg Neutrophils % Seg Neuts % (Manual) Baso # (Auto) Lymphocytes % (Manual) Monocytes % (Manual) Eosinophils % (Manual) Basophils % (Manual) Seg Neutrophils # Seg Neutrophils # Man Lymphocytes # (Manual) Monocytes # (Manual) Eosinophils # (Manual) Nucleated RBC % Basophils # (Manual) PT INR APTT Heparin Anti-Xa Level 1.93 H ABG pH POC ABG pO2 ABG pO2 ABG HCO3 ABG O2 Saturation ABG Base Excess POC ABG pCO2 ABG Hemoglobin ABG Oxyhemoglobin ABG Sodium ABG Chloride ABG Glucose Oxyhemoglobin Sodium Potassium Chloride Carbon Dioxide BUN Creatinine Glucose POC Glucose 126 H 148 H Lactic Acid Calcium Phosphorus Magnesium AST ALT Lactate Dehydrogenase Total Bilirubin Direct Bilirubin CK-MB (CK-2) C-Reactive Protein NT-Pro-B Natriuret Pep Total Protein Albumin Arterial Blood Glucose Urine WBC (Auto) Urine Creatinine 01/21/20 01/21/20 01/21/20 12:32 18:20 23:54 WBC RBC Hgb Hct MCHC RDW MCV MCH Lymph % (Auto) Mineral % (Auto) Mineral # Eos # Lymph # (Auto) Mineral # (Auto) Eos # (Auto) Seg Neutrophils % Seg Neuts % (Manual) Baso # (Auto) Lymphocytes % (Manual) Monocytes % (Manual) Eosinophils % (Manual) Basophils % (Manual) Seg Neutrophils # Seg Neutrophils # Man Lymphocytes # (Manual) Monocytes # (Manual) Eosinophils # (Manual) Nucleated RBC % Basophils # (Manual) PT INR APTT Heparin Anti-Xa Level 1.28 H ABG pH POC ABG pO2 ABG pO2 ABG HCO3 ABG O2 Saturation ABG Base Excess POC ABG pCO2 ABG Hemoglobin ABG Oxyhemoglobin ABG Sodium ABG Chloride ABG Glucose Oxyhemoglobin Sodium Potassium Chloride Carbon Dioxide BUN Creatinine Glucose POC Glucose 112 H 146 H Lactic Acid Calcium Phosphorus Magnesium AST ALT Lactate Dehydrogenase Total Bilirubin Direct Bilirubin CK-MB (CK-2) C-Reactive Protein NT-Pro-B Natriuret Pep Total Protein Albumin Arterial Blood Glucose Urine WBC (Auto) Urine Creatinine 01/22/20 01/22/20 01/22/20 04:45 04:45 05:48 WBC RBC Hgb 9.3 L Hct 29.0 L MCHC RDW MCV MCH Lymph % (Auto) Mineral % (Auto) Mineral # Eos # Lymph # (Auto) Mineral # (Auto) Eos # (Auto) Seg Neutrophils % Seg Neuts % (Manual) Baso # (Auto) Lymphocytes % (Manual) Monocytes % (Manual) Eosinophils % (Manual) Basophils % (Manual) Seg Neutrophils # Seg Neutrophils # Man Lymphocytes # (Manual) Monocytes # (Manual) Eosinophils # (Manual) Nucleated RBC % Basophils # (Manual) PT INR APTT Heparin Anti-Xa Level 1.34 H ABG pH POC ABG pO2 ABG pO2 ABG HCO3 ABG O2 Saturation ABG Base Excess POC ABG pCO2 ABG Hemoglobin ABG Oxyhemoglobin ABG Sodium ABG Chloride ABG Glucose Oxyhemoglobin Sodium Potassium Chloride Carbon Dioxide BUN Creatinine Glucose POC Glucose 142 H Lactic Acid Calcium Phosphorus Magnesium AST ALT Lactate Dehydrogenase Total Bilirubin Direct Bilirubin CK-MB (CK-2) C-Reactive Protein NT-Pro-B Natriuret Pep Total Protein Albumin Arterial Blood Glucose Urine WBC (Auto) Urine Creatinine 01/22/20 01/22/20 01/22/20 08:09 08:22 09:58 WBC RBC Hgb Hct MCHC RDW MCV MCH Lymph % (Auto) Mineral % (Auto) Mineral # Eos # Lymph # (Auto) Mineral # (Auto) Eos # (Auto) Seg Neutrophils % Seg Neuts % (Manual) Baso # (Auto) Lymphocytes % (Manual) Monocytes % (Manual) Eosinophils % (Manual) Basophils % (Manual) Seg Neutrophils # Seg Neutrophils # Man Lymphocytes # (Manual) Monocytes # (Manual) Eosinophils # (Manual) Nucleated RBC % Basophils # (Manual) PT 16.9 H INR 1.34 H APTT Heparin Anti-Xa Level ABG pH POC ABG pO2 ABG pO2 ABG HCO3 ABG O2 Saturation ABG Base Excess POC ABG pCO2 ABG Hemoglobin ABG Oxyhemoglobin ABG Sodium ABG Chloride ABG Glucose Oxyhemoglobin Sodium Potassium Chloride 97.8 L Carbon Dioxide BUN 29 H Creatinine Glucose 128 H POC Glucose 131 H Lactic Acid Calcium Phosphorus Magnesium AST ALT Lactate Dehydrogenase Total Bilirubin Direct Bilirubin CK-MB (CK-2) C-Reactive Protein NT-Pro-B Natriuret Pep Total Protein Albumin Arterial Blood Glucose Urine WBC (Auto) Urine Creatinine 01/22/20 01/22/20 01/22/20 12:44 16:13 18:18 WBC RBC Hgb Hct MCHC RDW MCV MCH Lymph % (Auto) Mineral % (Auto) Mineral # Eos # Lymph # (Auto) Mineral # (Auto) Eos # (Auto) Seg Neutrophils % Seg Neuts % (Manual) Baso # (Auto) Lymphocytes % (Manual) Monocytes % (Manual) Eosinophils % (Manual) Basophils % (Manual) Seg Neutrophils # Seg Neutrophils # Man Lymphocytes # (Manual) Monocytes # (Manual) Eosinophils # (Manual) Nucleated RBC % Basophils # (Manual) PT INR APTT Heparin Anti-Xa Level ABG pH POC ABG pO2 ABG pO2 ABG HCO3 ABG O2 Saturation ABG Base Excess POC ABG pCO2 ABG Hemoglobin ABG Oxyhemoglobin ABG Sodium ABG Chloride ABG Glucose Oxyhemoglobin Sodium Potassium Chloride Carbon Dioxide BUN Creatinine Glucose POC Glucose 156 H 133 H 155 H Lactic Acid Calcium Phosphorus Magnesium AST ALT Lactate Dehydrogenase Total Bilirubin Direct Bilirubin CK-MB (CK-2) C-Reactive Protein NT-Pro-B Natriuret Pep Total Protein Albumin Arterial Blood Glucose Urine WBC (Auto) Urine Creatinine 01/22/20 01/23/20 01/23/20 23:22 05:37 12:59 WBC RBC Hgb Hct MCHC RDW MCV MCH Lymph % (Auto) Mineral % (Auto) Mineral # Eos # Lymph # (Auto) Mineral # (Auto) Eos # (Auto) Seg Neutrophils % Seg Neuts % (Manual) Baso # (Auto) Lymphocytes % (Manual) Monocytes % (Manual) Eosinophils % (Manual) Basophils % (Manual) Seg Neutrophils # Seg Neutrophils # Man Lymphocytes # (Manual) Monocytes # (Manual) Eosinophils # (Manual) Nucleated RBC % Basophils # (Manual) PT INR APTT Heparin Anti-Xa Level ABG pH POC ABG pO2 ABG pO2 ABG HCO3 ABG O2 Saturation ABG Base Excess POC ABG pCO2 ABG Hemoglobin ABG Oxyhemoglobin ABG Sodium ABG Chloride ABG Glucose Oxyhemoglobin Sodium Potassium Chloride Carbon Dioxide BUN Creatinine Glucose POC Glucose 148 H 163 H 175 H Lactic Acid Calcium Phosphorus Magnesium AST ALT Lactate Dehydrogenase Total Bilirubin Direct Bilirubin CK-MB (CK-2) C-Reactive Protein NT-Pro-B Natriuret Pep Total Protein Albumin Arterial Blood Glucose Urine WBC (Auto) Urine Creatinine 01/23/20 01/23/20 01/24/20 17:28 23:56 04:30 WBC RBC 3.46 L Hgb 8.8 L Hct 27.8 L MCHC RDW 18.2 H MCV 81 L MCH 25 L Lymph % (Auto) Mineral % (Auto) 7.8 H Mineral # Eos # Lymph # (Auto) Mineral # (Auto) Eos # (Auto) Seg Neutrophils % Seg Neuts % (Manual) Baso # (Auto) Lymphocytes % (Manual) Monocytes % (Manual) Eosinophils % (Manual) Basophils % (Manual) Seg Neutrophils # Seg Neutrophils # Man Lymphocytes # (Manual) Monocytes # (Manual) Eosinophils # (Manual) Nucleated RBC % Basophils # (Manual) PT INR APTT Heparin Anti-Xa Level ABG pH POC ABG pO2 ABG pO2 ABG HCO3 ABG O2 Saturation ABG Base Excess POC ABG pCO2 ABG Hemoglobin ABG Oxyhemoglobin ABG Sodium ABG Chloride ABG Glucose Oxyhemoglobin Sodium Potassium Chloride Carbon Dioxide BUN Creatinine Glucose POC Glucose 165 H 177 H Lactic Acid Calcium Phosphorus Magnesium AST ALT Lactate Dehydrogenase Total Bilirubin Direct Bilirubin CK-MB (CK-2) C-Reactive Protein NT-Pro-B Natriuret Pep Total Protein Albumin Arterial Blood Glucose Urine WBC (Auto) Urine Creatinine 01/24/20 01/24/20 01/24/20 04:30 07:18 12:06 WBC RBC Hgb Hct MCHC RDW MCV MCH Lymph % (Auto) Mineral % (Auto) Mineral # Eos # Lymph # (Auto) Mineral # (Auto) Eos # (Auto) Seg Neutrophils % Seg Neuts % (Manual) Baso # (Auto) Lymphocytes % (Manual) Monocytes % (Manual) Eosinophils % (Manual) Basophils % (Manual) Seg Neutrophils # Seg Neutrophils # Man Lymphocytes # (Manual) Monocytes # (Manual) Eosinophils # (Manual) Nucleated RBC % Basophils # (Manual) PT INR APTT Heparin Anti-Xa Level ABG pH POC ABG pO2 ABG pO2 ABG HCO3 ABG O2 Saturation ABG Base Excess POC ABG pCO2 ABG Hemoglobin ABG Oxyhemoglobin ABG Sodium ABG Chloride ABG Glucose Oxyhemoglobin Sodium Potassium Chloride 97.9 L Carbon Dioxide BUN 31 H Creatinine Glucose 146 H POC Glucose 151 H 133 H Lactic Acid Calcium Phosphorus Magnesium AST ALT Lactate Dehydrogenase Total Bilirubin Direct Bilirubin CK-MB (CK-2) C-Reactive Protein NT-Pro-B Natriuret Pep Total Protein Albumin Arterial Blood Glucose Urine WBC (Auto) Urine Creatinine 01/24/20 01/25/20 01/25/20 17:36 00:08 04:25 WBC RBC 3.50 L Hgb 8.7 L Hct 27.9 L MCHC 31 L RDW 18.2 H MCV 80 L MCH 25 L Lymph % (Auto) Mineral % (Auto) 8.5 H Mineral # Eos # Lymph # (Auto) Mineral # (Auto) Eos # (Auto) Seg Neutrophils % Seg Neuts % (Manual) Baso # (Auto) Lymphocytes % (Manual) Monocytes % (Manual) Eosinophils % (Manual) Basophils % (Manual) Seg Neutrophils # Seg Neutrophils # Man Lymphocytes # (Manual) Monocytes # (Manual) Eosinophils # (Manual) Nucleated RBC % Basophils # (Manual) PT INR APTT Heparin Anti-Xa Level ABG pH POC ABG pO2 ABG pO2 ABG HCO3 ABG O2 Saturation ABG Base Excess POC ABG pCO2 ABG Hemoglobin ABG Oxyhemoglobin ABG Sodium ABG Chloride ABG Glucose Oxyhemoglobin Sodium Potassium Chloride Carbon Dioxide BUN Creatinine Glucose POC Glucose 133 H 129 H Lactic Acid Calcium Phosphorus Magnesium AST ALT Lactate Dehydrogenase Total Bilirubin Direct Bilirubin CK-MB (CK-2) C-Reactive Protein NT-Pro-B Natriuret Pep Total Protein Albumin Arterial Blood Glucose Urine WBC (Auto) Urine Creatinine 01/25/20 01/25/20 01/25/20 04:25 05:38 11:52 WBC RBC Hgb Hct MCHC RDW MCV MCH Lymph % (Auto) Mineral % (Auto) Mineral # Eos # Lymph # (Auto) Mineral # (Auto) Eos # (Auto) Seg Neutrophils % Seg Neuts % (Manual) Baso # (Auto) Lymphocytes % (Manual) Monocytes % (Manual) Eosinophils % (Manual) Basophils % (Manual) Seg Neutrophils # Seg Neutrophils # Man Lymphocytes # (Manual) Monocytes # (Manual) Eosinophils # (Manual) Nucleated RBC % Basophils # (Manual) PT INR APTT Heparin Anti-Xa Level ABG pH POC ABG pO2 ABG pO2 ABG HCO3 ABG O2 Saturation ABG Base Excess POC ABG pCO2 ABG Hemoglobin ABG Oxyhemoglobin ABG Sodium ABG Chloride ABG Glucose Oxyhemoglobin Sodium Potassium Chloride Carbon Dioxide BUN 30 H Creatinine Glucose 134 H POC Glucose 129 H 134 H Lactic Acid Calcium Phosphorus Magnesium AST ALT Lactate Dehydrogenase Total Bilirubin Direct Bilirubin CK-MB (CK-2) C-Reactive Protein NT-Pro-B Natriuret Pep Total Protein Albumin Arterial Blood Glucose Urine WBC (Auto) Urine Creatinine 01/25/20 01/25/20 01/26/20 17:13 21:02 00:59 WBC RBC Hgb Hct MCHC RDW MCV MCH Lymph % (Auto) Mineral % (Auto) Mineral # Eos # Lymph # (Auto) Mineral # (Auto) Eos # (Auto) Seg Neutrophils % Seg Neuts % (Manual) Baso # (Auto) Lymphocytes % (Manual) Monocytes % (Manual) Eosinophils % (Manual) Basophils % (Manual) Seg Neutrophils # Seg Neutrophils # Man Lymphocytes # (Manual) Monocytes # (Manual) Eosinophils # (Manual) Nucleated RBC % Basophils # (Manual) PT INR APTT Heparin Anti-Xa Level ABG pH POC ABG pO2 ABG pO2 57.5 L ABG HCO3 31.7 H ABG O2 Saturation 90.3 L ABG Base Excess 6.6 H POC ABG pCO2 ABG Hemoglobin 13.0 L ABG Oxyhemoglobin ABG Sodium ABG Chloride ABG Glucose Oxyhemoglobin 87.5 L Sodium Potassium Chloride Carbon Dioxide BUN Creatinine Glucose POC Glucose 124 H 196 H Lactic Acid Calcium Phosphorus Magnesium AST ALT Lactate Dehydrogenase Total Bilirubin Direct Bilirubin CK-MB (CK-2) C-Reactive Protein NT-Pro-B Natriuret Pep Total Protein Albumin Arterial Blood Glucose Urine WBC (Auto) Urine Creatinine 01/26/20 01/26/20 01/26/20 03:20 05:46 12:46 WBC RBC Hgb 9.2 L Hct 29.4 L MCHC RDW MCV MCH Lymph % (Auto) Mineral % (Auto) Mineral # Eos # Lymph # (Auto) Mineral # (Auto) Eos # (Auto) Seg Neutrophils % Seg Neuts % (Manual) Baso # (Auto) Lymphocytes % (Manual) Monocytes % (Manual) Eosinophils % (Manual) Basophils % (Manual) Seg Neutrophils # Seg Neutrophils # Man Lymphocytes # (Manual) Monocytes # (Manual) Eosinophils # (Manual) Nucleated RBC % Basophils # (Manual) PT INR APTT Heparin Anti-Xa Level ABG pH POC ABG pO2 ABG pO2 ABG HCO3 ABG O2 Saturation ABG Base Excess POC ABG pCO2 ABG Hemoglobin ABG Oxyhemoglobin ABG Sodium ABG Chloride ABG Glucose Oxyhemoglobin Sodium Potassium Chloride Carbon Dioxide BUN Creatinine Glucose POC Glucose 141 H 122 H Lactic Acid Calcium Phosphorus Magnesium AST ALT Lactate Dehydrogenase Total Bilirubin Direct Bilirubin CK-MB (CK-2) C-Reactive Protein NT-Pro-B Natriuret Pep Total Protein Albumin Arterial Blood Glucose Urine WBC (Auto) Urine Creatinine 01/26/20 01/26/20 01/27/20 18:03 23:55 04:47 WBC RBC Hgb Hct MCHC RDW MCV MCH Lymph % (Auto) Mineral % (Auto) Mineral # Eos # Lymph # (Auto) Mineral # (Auto) Eos # (Auto) Seg Neutrophils % Seg Neuts % (Manual) Baso # (Auto) Lymphocytes % (Manual) Monocytes % (Manual) Eosinophils % (Manual) Basophils % (Manual) Seg Neutrophils # Seg Neutrophils # Man Lymphocytes # (Manual) Monocytes # (Manual) Eosinophils # (Manual) Nucleated RBC % Basophils # (Manual) PT INR APTT Heparin Anti-Xa Level ABG pH POC ABG pO2 ABG pO2 ABG HCO3 ABG O2 Saturation ABG Base Excess POC ABG pCO2 ABG Hemoglobin ABG Oxyhemoglobin ABG Sodium ABG Chloride ABG Glucose Oxyhemoglobin Sodium Potassium Chloride Carbon Dioxide BUN 30 H Creatinine 0.7 L Glucose 135 H POC Glucose 142 H 159 H Lactic Acid Calcium Phosphorus Magnesium AST ALT Lactate Dehydrogenase Total Bilirubin Direct Bilirubin CK-MB (CK-2) C-Reactive Protein NT-Pro-B Natriuret Pep Total Protein Albumin Arterial Blood Glucose Urine WBC (Auto) Urine Creatinine 01/27/20 01/27/20 01/27/20 05:43 12:06 17:16 WBC RBC Hgb Hct MCHC RDW MCV MCH Lymph % (Auto) Mineral % (Auto) Mineral # Eos # Lymph # (Auto) Mineral # (Auto) Eos # (Auto) Seg Neutrophils % Seg Neuts % (Manual) Baso # (Auto) Lymphocytes % (Manual) Monocytes % (Manual) Eosinophils % (Manual) Basophils % (Manual) Seg Neutrophils # Seg Neutrophils # Man Lymphocytes # (Manual) Monocytes # (Manual) Eosinophils # (Manual) Nucleated RBC % Basophils # (Manual) PT INR APTT Heparin Anti-Xa Level ABG pH POC ABG pO2 ABG pO2 ABG HCO3 ABG O2 Saturation ABG Base Excess POC ABG pCO2 ABG Hemoglobin ABG Oxyhemoglobin ABG Sodium ABG Chloride ABG Glucose Oxyhemoglobin Sodium Potassium Chloride Carbon Dioxide BUN Creatinine Glucose POC Glucose 143 H 142 H 128 H Lactic Acid Calcium Phosphorus Magnesium AST ALT Lactate Dehydrogenase Total Bilirubin Direct Bilirubin CK-MB (CK-2) C-Reactive Protein NT-Pro-B Natriuret Pep Total Protein Albumin Arterial Blood Glucose Urine WBC (Auto) Urine Creatinine 01/27/20 01/28/20 01/28/20 23:55 04:37 05:55 WBC RBC Hgb 9.4 L Hct 29.9 L MCHC RDW MCV MCH Lymph % (Auto) Mineral % (Auto) Mineral # Eos # Lymph # (Auto) Mineral # (Auto) Eos # (Auto) Seg Neutrophils % Seg Neuts % (Manual) Baso # (Auto) Lymphocytes % (Manual) Monocytes % (Manual) Eosinophils % (Manual) Basophils % (Manual) Seg Neutrophils # Seg Neutrophils # Man Lymphocytes # (Manual) Monocytes # (Manual) Eosinophils # (Manual) Nucleated RBC % Basophils # (Manual) PT INR APTT Heparin Anti-Xa Level ABG pH POC ABG pO2 ABG pO2 ABG HCO3 ABG O2 Saturation ABG Base Excess POC ABG pCO2 ABG Hemoglobin ABG Oxyhemoglobin ABG Sodium ABG Chloride ABG Glucose Oxyhemoglobin Sodium Potassium Chloride Carbon Dioxide BUN Creatinine Glucose POC Glucose 166 H 169 H Lactic Acid Calcium Phosphorus Magnesium AST ALT Lactate Dehydrogenase Total Bilirubin Direct Bilirubin CK-MB (CK-2) C-Reactive Protein NT-Pro-B Natriuret Pep Total Protein Albumin Arterial Blood Glucose Urine WBC (Auto) Urine Creatinine 01/28/20 01/28/20 01/28/20 11:58 17:26 23:46 WBC RBC Hgb Hct MCHC RDW MCV MCH Lymph % (Auto) Mineral % (Auto) Mineral # Eos # Lymph # (Auto) Mineral # (Auto) Eos # (Auto) Seg Neutrophils % Seg Neuts % (Manual) Baso # (Auto) Lymphocytes % (Manual) Monocytes % (Manual) Eosinophils % (Manual) Basophils % (Manual) Seg Neutrophils # Seg Neutrophils # Man Lymphocytes # (Manual) Monocytes # (Manual) Eosinophils # (Manual) Nucleated RBC % Basophils # (Manual) PT INR APTT Heparin Anti-Xa Level ABG pH POC ABG pO2 ABG pO2 ABG HCO3 ABG O2 Saturation ABG Base Excess POC ABG pCO2 ABG Hemoglobin ABG Oxyhemoglobin ABG Sodium ABG Chloride ABG Glucose Oxyhemoglobin Sodium Potassium Chloride Carbon Dioxide BUN Creatinine Glucose POC Glucose 130 H 126 H 150 H Lactic Acid Calcium Phosphorus Magnesium AST ALT Lactate Dehydrogenase Total Bilirubin Direct Bilirubin CK-MB (CK-2) C-Reactive Protein NT-Pro-B Natriuret Pep Total Protein Albumin Arterial Blood Glucose Urine WBC (Auto) Urine Creatinine 01/29/20 01/29/20 01/29/20 04:55 06:00 12:28 WBC RBC Hgb Hct MCHC RDW MCV MCH Lymph % (Auto) Mineral % (Auto) Mineral # Eos # Lymph # (Auto) Mineral # (Auto) Eos # (Auto) Seg Neutrophils % Seg Neuts % (Manual) Baso # (Auto) Lymphocytes % (Manual) Monocytes % (Manual) Eosinophils % (Manual) Basophils % (Manual) Seg Neutrophils # Seg Neutrophils # Man Lymphocytes # (Manual) Monocytes # (Manual) Eosinophils # (Manual) Nucleated RBC % Basophils # (Manual) PT INR APTT Heparin Anti-Xa Level ABG pH POC ABG pO2 ABG pO2 ABG HCO3 ABG O2 Saturation ABG Base Excess POC ABG pCO2 ABG Hemoglobin ABG Oxyhemoglobin ABG Sodium ABG Chloride ABG Glucose Oxyhemoglobin Sodium Potassium Chloride Carbon Dioxide 34 H BUN Creatinine 0.6 L Glucose 152 H POC Glucose 157 H 156 H Lactic Acid Calcium Phosphorus Magnesium AST ALT Lactate Dehydrogenase Total Bilirubin Direct Bilirubin CK-MB (CK-2) C-Reactive Protein NT-Pro-B Natriuret Pep Total Protein Albumin Arterial Blood Glucose Urine WBC (Auto) Urine Creatinine 01/29/20 01/30/20 01/30/20 19:06 00:29 05:39 WBC RBC Hgb Hct MCHC RDW MCV MCH Lymph % (Auto) Mineral % (Auto) Mineral # Eos # Lymph # (Auto) Mineral # (Auto) Eos # (Auto) Seg Neutrophils % Seg Neuts % (Manual) Baso # (Auto) Lymphocytes % (Manual) Monocytes % (Manual) Eosinophils % (Manual) Basophils % (Manual) Seg Neutrophils # Seg Neutrophils # Man Lymphocytes # (Manual) Monocytes # (Manual) Eosinophils # (Manual) Nucleated RBC % Basophils # (Manual) PT INR APTT Heparin Anti-Xa Level ABG pH POC ABG pO2 ABG pO2 ABG HCO3 ABG O2 Saturation ABG Base Excess POC ABG pCO2 ABG Hemoglobin ABG Oxyhemoglobin ABG Sodium ABG Chloride ABG Glucose Oxyhemoglobin Sodium Potassium Chloride Carbon Dioxide BUN Creatinine Glucose POC Glucose 152 H 132 H 159 H Lactic Acid Calcium Phosphorus Magnesium AST ALT Lactate Dehydrogenase Total Bilirubin Direct Bilirubin CK-MB (CK-2) C-Reactive Protein NT-Pro-B Natriuret Pep Total Protein Albumin Arterial Blood Glucose Urine WBC (Auto) Urine Creatinine 01/30/20 01/30/20 01/30/20 12:27 17:42 23:28 WBC RBC Hgb Hct MCHC RDW MCV MCH Lymph % (Auto) Mineral % (Auto) Mineral # Eos # Lymph # (Auto) Mineral # (Auto) Eos # (Auto) Seg Neutrophils % Seg Neuts % (Manual) Baso # (Auto) Lymphocytes % (Manual) Monocytes % (Manual) Eosinophils % (Manual) Basophils % (Manual) Seg Neutrophils # Seg Neutrophils # Man Lymphocytes # (Manual) Monocytes # (Manual) Eosinophils # (Manual) Nucleated RBC % Basophils # (Manual) PT INR APTT Heparin Anti-Xa Level ABG pH POC ABG pO2 ABG pO2 ABG HCO3 ABG O2 Saturation ABG Base Excess POC ABG pCO2 ABG Hemoglobin ABG Oxyhemoglobin ABG Sodium ABG Chloride ABG Glucose Oxyhemoglobin Sodium Potassium Chloride Carbon Dioxide BUN Creatinine Glucose POC Glucose 151 H 144 H 164 H Lactic Acid Calcium Phosphorus Magnesium AST ALT Lactate Dehydrogenase Total Bilirubin Direct Bilirubin CK-MB (CK-2) C-Reactive Protein NT-Pro-B Natriuret Pep Total Protein Albumin Arterial Blood Glucose Urine WBC (Auto) Urine Creatinine 01/31/20 01/31/20 01/31/20 05:51 11:51 18:06 WBC RBC Hgb Hct MCHC RDW MCV MCH Lymph % (Auto) Mineral % (Auto) Mineral # Eos # Lymph # (Auto) Mineral # (Auto) Eos # (Auto) Seg Neutrophils % Seg Neuts % (Manual) Baso # (Auto) Lymphocytes % (Manual) Monocytes % (Manual) Eosinophils % (Manual) Basophils % (Manual) Seg Neutrophils # Seg Neutrophils # Man Lymphocytes # (Manual) Monocytes # (Manual) Eosinophils # (Manual) Nucleated RBC % Basophils # (Manual) PT INR APTT Heparin Anti-Xa Level ABG pH POC ABG pO2 ABG pO2 ABG HCO3 ABG O2 Saturation ABG Base Excess POC ABG pCO2 ABG Hemoglobin ABG Oxyhemoglobin ABG Sodium ABG Chloride ABG Glucose Oxyhemoglobin Sodium Potassium Chloride Carbon Dioxide BUN Creatinine Glucose POC Glucose 131 H 167 H 210 H Lactic Acid Calcium Phosphorus Magnesium AST ALT Lactate Dehydrogenase Total Bilirubin Direct Bilirubin CK-MB (CK-2) C-Reactive Protein NT-Pro-B Natriuret Pep Total Protein Albumin Arterial Blood Glucose Urine WBC (Auto) Urine Creatinine 01/31/20 01/31/20 02/01/20 19:24 Unknown 00:34 WBC RBC Hgb Hct MCHC RDW MCV MCH Lymph % (Auto) Mineral % (Auto) Mineral # Eos # Lymph # (Auto) Mineral # (Auto) Eos # (Auto) Seg Neutrophils % Seg Neuts % (Manual) Baso # (Auto) Lymphocytes % (Manual) Monocytes % (Manual) Eosinophils % (Manual) Basophils % (Manual) Seg Neutrophils # Seg Neutrophils # Man Lymphocytes # (Manual) Monocytes # (Manual) Eosinophils # (Manual) Nucleated RBC % Basophils # (Manual) PT INR APTT Heparin Anti-Xa Level ABG pH POC ABG pO2 ABG pO2 ABG HCO3 ABG O2 Saturation ABG Base Excess POC ABG pCO2 ABG Hemoglobin ABG Oxyhemoglobin ABG Sodium ABG Chloride ABG Glucose Oxyhemoglobin Sodium Potassium Chloride 95.3 L Carbon Dioxide 33 H BUN 36 H Creatinine Glucose 187 H POC Glucose 116 H Lactic Acid Calcium Phosphorus Magnesium AST ALT Lactate Dehydrogenase Total Bilirubin Direct Bilirubin CK-MB (CK-2) C-Reactive Protein NT-Pro-B Natriuret Pep Total Protein Albumin Arterial Blood Glucose Urine WBC (Auto) Urine Creatinine 57.4 H 02/01/20 02/01/20 02/01/20 05:24 10:40 12:29 WBC RBC Hgb Hct MCHC RDW MCV MCH Lymph % (Auto) Mineral % (Auto) Mineral # Eos # Lymph # (Auto) Mineral # (Auto) Eos # (Auto) Seg Neutrophils % Seg Neuts % (Manual) Baso # (Auto) Lymphocytes % (Manual) Monocytes % (Manual) Eosinophils % (Manual) Basophils % (Manual) Seg Neutrophils # Seg Neutrophils # Man Lymphocytes # (Manual) Monocytes # (Manual) Eosinophils # (Manual) Nucleated RBC % Basophils # (Manual) PT INR APTT Heparin Anti-Xa Level ABG pH POC ABG pO2 ABG pO2 ABG HCO3 ABG O2 Saturation ABG Base Excess POC ABG pCO2 ABG Hemoglobin ABG Oxyhemoglobin ABG Sodium ABG Chloride ABG Glucose Oxyhemoglobin Sodium Potassium Chloride Carbon Dioxide BUN Creatinine Glucose POC Glucose 142 H 165 H 151 H Lactic Acid Calcium Phosphorus Magnesium AST ALT Lactate Dehydrogenase Total Bilirubin Direct Bilirubin CK-MB (CK-2) C-Reactive Protein NT-Pro-B Natriuret Pep Total Protein Albumin Arterial Blood Glucose Urine WBC (Auto) Urine Creatinine 02/01/20 02/01/20 02/02/20 17:16 23:23 06:36 WBC RBC Hgb Hct MCHC RDW MCV MCH Lymph % (Auto) Mineral % (Auto) Mineral # Eos # Lymph # (Auto) Mineral # (Auto) Eos # (Auto) Seg Neutrophils % Seg Neuts % (Manual) Baso # (Auto) Lymphocytes % (Manual) Monocytes % (Manual) Eosinophils % (Manual) Basophils % (Manual) Seg Neutrophils # Seg Neutrophils # Man Lymphocytes # (Manual) Monocytes # (Manual) Eosinophils # (Manual) Nucleated RBC % Basophils # (Manual) PT INR APTT Heparin Anti-Xa Level ABG pH POC ABG pO2 ABG pO2 ABG HCO3 ABG O2 Saturation ABG Base Excess POC ABG pCO2 ABG Hemoglobin ABG Oxyhemoglobin ABG Sodium ABG Chloride ABG Glucose Oxyhemoglobin Sodium Potassium Chloride Carbon Dioxide BUN Creatinine Glucose POC Glucose 137 H 145 H 181 H Lactic Acid Calcium Phosphorus Magnesium AST ALT Lactate Dehydrogenase Total Bilirubin Direct Bilirubin CK-MB (CK-2) C-Reactive Protein NT-Pro-B Natriuret Pep Total Protein Albumin Arterial Blood Glucose Urine WBC (Auto) Urine Creatinine 02/02/20 02/02/20 02/02/20 10:01 12:05 17:54 WBC RBC Hgb Hct MCHC RDW MCV MCH Lymph % (Auto) Mineral % (Auto) Mineral # Eos # Lymph # (Auto) Mineral # (Auto) Eos # (Auto) Seg Neutrophils % Seg Neuts % (Manual) Baso # (Auto) Lymphocytes % (Manual) Monocytes % (Manual) Eosinophils % (Manual) Basophils % (Manual) Seg Neutrophils # Seg Neutrophils # Man Lymphocytes # (Manual) Monocytes # (Manual) Eosinophils # (Manual) Nucleated RBC % Basophils # (Manual) PT INR APTT Heparin Anti-Xa Level ABG pH POC ABG pO2 ABG pO2 ABG HCO3 ABG O2 Saturation ABG Base Excess POC ABG pCO2 ABG Hemoglobin ABG Oxyhemoglobin ABG Sodium ABG Chloride ABG Glucose Oxyhemoglobin Sodium Potassium Chloride 95.3 L Carbon Dioxide BUN 44 H Creatinine Glucose 234 H POC Glucose 184 H 127 H Lactic Acid Calcium Phosphorus Magnesium AST 363 H ALT 457 H Lactate Dehydrogenase Total Bilirubin Direct Bilirubin CK-MB (CK-2) C-Reactive Protein NT-Pro-B Natriuret Pep Total Protein Albumin 3.0 L Arterial Blood Glucose Urine WBC (Auto) Urine Creatinine 02/02/20 02/03/20 02/03/20 23:47 05:32 07:04 WBC 13.0 H RBC Hgb 9.5 L Hct 30.8 L MCHC 31 L RDW 19.6 H MCV 81 L MCH 25 L Lymph % (Auto) Mineral % (Auto) 9.4 H Mineral # Eos # Lymph # (Auto) Mineral # (Auto) 1.2 H Eos # (Auto) Seg Neutrophils % 72.3 H Seg Neuts % (Manual) Baso # (Auto) Lymphocytes % (Manual) Monocytes % (Manual) Eosinophils % (Manual) Basophils % (Manual) Seg Neutrophils # 9.4 H Seg Neutrophils # Man Lymphocytes # (Manual) Monocytes # (Manual) Eosinophils # (Manual) Nucleated RBC % Basophils # (Manual) PT INR APTT Heparin Anti-Xa Level ABG pH POC ABG pO2 ABG pO2 ABG HCO3 ABG O2 Saturation ABG Base Excess POC ABG pCO2 ABG Hemoglobin ABG Oxyhemoglobin ABG Sodium ABG Chloride ABG Glucose Oxyhemoglobin Sodium Potassium Chloride Carbon Dioxide BUN Creatinine Glucose POC Glucose 124 H 129 H Lactic Acid Calcium Phosphorus Magnesium AST ALT Lactate Dehydrogenase Total Bilirubin Direct Bilirubin CK-MB (CK-2) C-Reactive Protein NT-Pro-B Natriuret Pep Total Protein Albumin Arterial Blood Glucose Urine WBC (Auto) Urine Creatinine 02/03/20 02/03/20 02/03/20 07:04 11:32 12:49 WBC RBC Hgb Hct MCHC RDW MCV MCH Lymph % (Auto) Mineral % (Auto) Mineral # Eos # Lymph # (Auto) Mineral # (Auto) Eos # (Auto) Seg Neutrophils % Seg Neuts % (Manual) Baso # (Auto) Lymphocytes % (Manual) Monocytes % (Manual) Eosinophils % (Manual) Basophils % (Manual) Seg Neutrophils # Seg Neutrophils # Man Lymphocytes # (Manual) Monocytes # (Manual) Eosinophils # (Manual) Nucleated RBC % Basophils # (Manual) PT INR APTT Heparin Anti-Xa Level ABG pH POC ABG pO2 ABG pO2 ABG HCO3 ABG O2 Saturation ABG Base Excess POC ABG pCO2 ABG Hemoglobin ABG Oxyhemoglobin ABG Sodium ABG Chloride ABG Glucose Oxyhemoglobin Sodium Potassium Chloride 97.9 L Carbon Dioxide 33 H BUN 39 H Creatinine Glucose 119 H POC Glucose 138 H Lactic Acid Calcium Phosphorus Magnesium 2.60 H AST ALT Lactate Dehydrogenase Total Bilirubin Direct Bilirubin CK-MB (CK-2) C-Reactive Protein NT-Pro-B Natriuret Pep Total Protein Albumin Arterial Blood Glucose Urine WBC (Auto) Urine Creatinine 02/03/20 02/04/20 02/04/20 18:28 16:24 16:24 WBC RBC 3.38 L Hgb 8.6 L Hct 26.9 L MCHC RDW 19.5 H MCV 80 L MCH 26 L Lymph % (Auto) Mineral % (Auto) Mineral # Eos # Lymph # (Auto) Mineral # (Auto) Eos # (Auto) Seg Neutrophils % Seg Neuts % (Manual) Baso # (Auto) Lymphocytes % (Manual) Monocytes % (Manual) Eosinophils % (Manual) Basophils % (Manual) Seg Neutrophils # Seg Neutrophils # Man Lymphocytes # (Manual) Monocytes # (Manual) Eosinophils # (Manual) Nucleated RBC % Basophils # (Manual) PT INR APTT Heparin Anti-Xa Level ABG pH POC ABG pO2 ABG pO2 ABG HCO3 ABG O2 Saturation ABG Base Excess POC ABG pCO2 ABG Hemoglobin ABG Oxyhemoglobin ABG Sodium ABG Chloride ABG Glucose Oxyhemoglobin Sodium Potassium 3.4 L Chloride Carbon Dioxide 31 H BUN 37 H Creatinine Glucose 70 L POC Glucose 118 H Lactic Acid Calcium Phosphorus Magnesium AST 169 H ALT 394 H Lactate Dehydrogenase Total Bilirubin 1.50 H Direct Bilirubin CK-MB (CK-2) C-Reactive Protein NT-Pro-B Natriuret Pep Total Protein Albumin 2.9 L Arterial Blood Glucose Urine WBC (Auto) Urine Creatinine 02/05/20 02/05/20 02/05/20 00:41 06:37 17:14 WBC RBC Hgb Hct MCHC RDW MCV MCH Lymph % (Auto) Mineral % (Auto) Mineral # Eos # Lymph # (Auto) Mineral # (Auto) Eos # (Auto) Seg Neutrophils % Seg Neuts % (Manual) Baso # (Auto) Lymphocytes % (Manual) Monocytes % (Manual) Eosinophils % (Manual) Basophils % (Manual) Seg Neutrophils # Seg Neutrophils # Man Lymphocytes # (Manual) Monocytes # (Manual) Eosinophils # (Manual) Nucleated RBC % Basophils # (Manual) PT INR APTT Heparin Anti-Xa Level ABG pH POC ABG pO2 ABG pO2 ABG HCO3 ABG O2 Saturation ABG Base Excess POC ABG pCO2 ABG Hemoglobin ABG Oxyhemoglobin ABG Sodium ABG Chloride ABG Glucose Oxyhemoglobin Sodium Potassium 3.1 L Chloride Carbon Dioxide 35 H BUN 32 H Creatinine 0.7 L Glucose POC Glucose 69 L 127 H Lactic Acid Calcium Phosphorus Magnesium AST 134 H ALT 352 H Lactate Dehydrogenase Total Bilirubin 1.60 H Direct Bilirubin CK-MB (CK-2) C-Reactive Protein NT-Pro-B Natriuret Pep Total Protein Albumin 2.9 L Arterial Blood Glucose Urine WBC (Auto) Urine Creatinine 02/05/20 02/06/20 02/06/20 23:43 05:32 08:01 WBC RBC Hgb Hct MCHC RDW MCV MCH Lymph % (Auto) Mineral % (Auto) Mineral # Eos # Lymph # (Auto) Mineral # (Auto) Eos # (Auto) Seg Neutrophils % Seg Neuts % (Manual) Baso # (Auto) Lymphocytes % (Manual) Monocytes % (Manual) Eosinophils % (Manual) Basophils % (Manual) Seg Neutrophils # Seg Neutrophils # Man Lymphocytes # (Manual) Monocytes # (Manual) Eosinophils # (Manual) Nucleated RBC % Basophils # (Manual) PT INR APTT Heparin Anti-Xa Level ABG pH POC ABG pO2 ABG pO2 ABG HCO3 ABG O2 Saturation ABG Base Excess POC ABG pCO2 ABG Hemoglobin ABG Oxyhemoglobin ABG Sodium ABG Chloride ABG Glucose Oxyhemoglobin Sodium Potassium Chloride Carbon Dioxide BUN 40 H Creatinine Glucose 132 H POC Glucose 129 H 131 H Lactic Acid Calcium Phosphorus Magnesium AST ALT Lactate Dehydrogenase Total Bilirubin Direct Bilirubin CK-MB (CK-2) C-Reactive Protein NT-Pro-B Natriuret Pep Total Protein Albumin Arterial Blood Glucose Urine WBC (Auto) Urine Creatinine 02/06/20 02/06/20 02/06/20 11:51 16:28 17:32 WBC RBC Hgb Hct MCHC RDW MCV MCH Lymph % (Auto) Mineral % (Auto) Mineral # Eos # Lymph # (Auto) Mineral # (Auto) Eos # (Auto) Seg Neutrophils % Seg Neuts % (Manual) Baso # (Auto) Lymphocytes % (Manual) Monocytes % (Manual) Eosinophils % (Manual) Basophils % (Manual) Seg Neutrophils # Seg Neutrophils # Man Lymphocytes # (Manual) Monocytes # (Manual) Eosinophils # (Manual) Nucleated RBC % Basophils # (Manual) PT INR APTT Heparin Anti-Xa Level ABG pH POC ABG pO2 ABG pO2 ABG HCO3 ABG O2 Saturation ABG Base Excess POC ABG pCO2 ABG Hemoglobin ABG Oxyhemoglobin ABG Sodium ABG Chloride ABG Glucose Oxyhemoglobin Sodium Potassium Chloride Carbon Dioxide BUN Creatinine Glucose POC Glucose 167 H 129 H Lactic Acid Calcium Phosphorus Magnesium AST 824 H ALT 948 H Lactate Dehydrogenase Total Bilirubin 1.70 H Direct Bilirubin 1.2 H CK-MB (CK-2) C-Reactive Protein NT-Pro-B Natriuret Pep Total Protein Albumin 2.9 L Arterial Blood Glucose Urine WBC (Auto) Urine Creatinine 02/07/20 02/07/2020 00:11 04:57 04:57 WBC RBC Hgb 9.2 L Hct 29.7 L MCHC 31 L RDW 20.2 H MCV 80 L MCH 25 L Lymph % (Auto) Mineral % (Auto) Mineral # Eos # Lymph # (Auto) Mineral # (Auto) Eos # (Auto) Seg Neutrophils % Seg Neuts % (Manual) Baso # (Auto) Lymphocytes % (Manual) Monocytes % (Manual) Eosinophils % (Manual) Basophils % (Manual) Seg Neutrophils # Seg Neutrophils # Man Lymphocytes # (Manual) Monocytes # (Manual) Eosinophils # (Manual) Nucleated RBC % Basophils # (Manual) PT INR APTT Heparin Anti-Xa Level ABG pH POC ABG pO2 ABG pO2 ABG HCO3 ABG O2 Saturation ABG Base Excess POC ABG pCO2 ABG Hemoglobin ABG Oxyhemoglobin ABG Sodium ABG Chloride ABG Glucose Oxyhemoglobin Sodium Potassium 3.4 L D Chloride Carbon Dioxide 32 H BUN 39 H Creatinine Glucose 106 H POC Glucose 121 H Lactic Acid Calcium Phosphorus Magnesium AST ALT Lactate Dehydrogenase Total Bilirubin Direct Bilirubin CK-MB (CK-2) C-Reactive Protein NT-Pro-B Natriuret Pep Total Protein Albumin Arterial Blood Glucose Urine WBC (Auto) Urine Creatinine 02/07/20 02/07/20 02/07/20 15:03 15:03 17:11 WBC RBC Hgb Hct MCHC RDW MCV MCH Lymph % (Auto) Mineral % (Auto) Mineral # Eos # Lymph # (Auto) Mineral # (Auto) Eos # (Auto) Seg Neutrophils % Seg Neuts % (Manual) Baso # (Auto) Lymphocytes % (Manual) Monocytes % (Manual) Eosinophils % (Manual) Basophils % (Manual) Seg Neutrophils # Seg Neutrophils # Man Lymphocytes # (Manual) Monocytes # (Manual) Eosinophils # (Manual) Nucleated RBC % Basophils # (Manual) PT 27.0 H INR 2.46 H APTT Heparin Anti-Xa Level ABG pH POC ABG pO2 ABG pO2 ABG HCO3 ABG O2 Saturation ABG Base Excess POC ABG pCO2 ABG Hemoglobin ABG Oxyhemoglobin ABG Sodium ABG Chloride ABG Glucose Oxyhemoglobin Sodium Potassium Chloride Carbon Dioxide BUN Creatinine Glucose POC Glucose 109 H Lactic Acid Calcium Phosphorus Magnesium AST 424 H ALT 796 H Lactate Dehydrogenase Total Bilirubin 1.60 H Direct Bilirubin 1.2 H CK-MB (CK-2) C-Reactive Protein NT-Pro-B Natriuret Pep Total Protein Albumin 2.9 L Arterial Blood Glucose Urine WBC (Auto) Urine Creatinine 02/08/20 02/08/20 02/08/20 12:14 17:44 19:00 WBC RBC Hgb Hct MCHC RDW MCV MCH Lymph % (Auto) Mineral % (Auto) Mineral # Eos # Lymph # (Auto) Mineral # (Auto) Eos # (Auto) Seg Neutrophils % Seg Neuts % (Manual) Baso # (Auto) Lymphocytes % (Manual) Monocytes % (Manual) Eosinophils % (Manual) Basophils % (Manual) Seg Neutrophils # Seg Neutrophils # Man Lymphocytes # (Manual) Monocytes # (Manual) Eosinophils # (Manual) Nucleated RBC % Basophils # (Manual) PT INR APTT Heparin Anti-Xa Level ABG pH POC ABG pO2 ABG pO2 ABG HCO3 ABG O2 Saturation ABG Base Excess POC ABG pCO2 ABG Hemoglobin ABG Oxyhemoglobin ABG Sodium ABG Chloride ABG Glucose Oxyhemoglobin Sodium Potassium Chloride Carbon Dioxide BUN Creatinine Glucose POC Glucose 111 H 107 H Lactic Acid Calcium Phosphorus Magnesium AST 309 H ALT 650 H Lactate Dehydrogenase Total Bilirubin 1.30 H Direct Bilirubin 0.9 H CK-MB (CK-2) C-Reactive Protein NT-Pro-B Natriuret Pep Total Protein 6.2 L Albumin 2.7 L Arterial Blood Glucose Urine WBC (Auto) Urine Creatinine 02/09/20 02/09/20 02/09/20 05:41 12:28 18:07 WBC RBC Hgb Hct MCHC RDW MCV MCH Lymph % (Auto) Mineral % (Auto) Mineral # Eos # Lymph # (Auto) Mineral # (Auto) Eos # (Auto) Seg Neutrophils % Seg Neuts % (Manual) Baso # (Auto) Lymphocytes % (Manual) Monocytes % (Manual) Eosinophils % (Manual) Basophils % (Manual) Seg Neutrophils # Seg Neutrophils # Man Lymphocytes # (Manual) Monocytes # (Manual) Eosinophils # (Manual) Nucleated RBC % Basophils # (Manual) PT INR APTT Heparin Anti-Xa Level ABG pH POC ABG pO2 ABG pO2 ABG HCO3 ABG O2 Saturation ABG Base Excess POC ABG pCO2 ABG Hemoglobin ABG Oxyhemoglobin ABG Sodium ABG Chloride ABG Glucose Oxyhemoglobin Sodium Potassium Chloride Carbon Dioxide BUN Creatinine Glucose POC Glucose 113 H 140 H 143 H Lactic Acid Calcium Phosphorus Magnesium AST ALT Lactate Dehydrogenase Total Bilirubin Direct Bilirubin CK-MB (CK-2) C-Reactive Protein NT-Pro-B Natriuret Pep Total Protein Albumin Arterial Blood Glucose Urine WBC (Auto) Urine Creatinine 02/09/20 02/09/20 02/10/20 21:40 23:45 06:00 WBC RBC Hgb Hct MCHC RDW MCV MCH Lymph % (Auto) Mineral % (Auto) Mineral # Eos # Lymph # (Auto) Mineral # (Auto) Eos # (Auto) Seg Neutrophils % Seg Neuts % (Manual) Baso # (Auto) Lymphocytes % (Manual) Monocytes % (Manual) Eosinophils % (Manual) Basophils % (Manual) Seg Neutrophils # Seg Neutrophils # Man Lymphocytes # (Manual) Monocytes # (Manual) Eosinophils # (Manual) Nucleated RBC % Basophils # (Manual) PT INR APTT Heparin Anti-Xa Level ABG pH POC ABG pO2 ABG pO2 59.8 L ABG HCO3 33.3 H ABG O2 Saturation 88.9 L ABG Base Excess 7.4 H POC ABG pCO2 ABG Hemoglobin 10.4 L ABG Oxyhemoglobin ABG Sodium ABG Chloride ABG Glucose Oxyhemoglobin 86.3 L Sodium Potassium Chloride Carbon Dioxide BUN Creatinine Glucose POC Glucose 127 H 114 H Lactic Acid Calcium Phosphorus Magnesium AST ALT Lactate Dehydrogenase Total Bilirubin Direct Bilirubin CK-MB (CK-2) C-Reactive Protein NT-Pro-B Natriuret Pep Total Protein Albumin Arterial Blood Glucose Urine WBC (Auto) Urine Creatinine 02/10/20 02/10/20 02/10/20 07:40 07:40 13:38 WBC 11.5 H RBC Hgb 10.6 L Hct 34.7 L MCHC 31 L RDW 19.8 H MCV 79 L MCH 24 L Lymph % (Auto) Mineral % (Auto) 9.2 H Mineral # Eos # Lymph # (Auto) Mineral # (Auto) 1.1 H Eos # (Auto) Seg Neutrophils % Seg Neuts % (Manual) Baso # (Auto) Lymphocytes % (Manual) Monocytes % (Manual) Eosinophils % (Manual) Basophils % (Manual) Seg Neutrophils # Seg Neutrophils # Man Lymphocytes # (Manual) Monocytes # (Manual) Eosinophils # (Manual) Nucleated RBC % Basophils # (Manual) PT INR APTT Heparin Anti-Xa Level ABG pH POC ABG pO2 ABG pO2 ABG HCO3 ABG O2 Saturation ABG Base Excess POC ABG pCO2 ABG Hemoglobin ABG Oxyhemoglobin ABG Sodium ABG Chloride ABG Glucose Oxyhemoglobin Sodium 151 H Potassium Chloride 107.2 H Carbon Dioxide 36 H BUN 25 H Creatinine 0.7 L Glucose 114 H POC Glucose 116 H Lactic Acid Calcium Phosphorus Magnesium 2.40 H AST ALT Lactate Dehydrogenase Total Bilirubin Direct Bilirubin CK-MB (CK-2) C-Reactive Protein NT-Pro-B Natriuret Pep Total Protein Albumin Arterial Blood Glucose Urine WBC (Auto) Urine Creatinine 02/10/20 02/11/20 02/11/20 17:44 05:47 12:21 WBC RBC Hgb Hct MCHC RDW MCV MCH Lymph % (Auto) Mineral % (Auto) Mineral # Eos # Lymph # (Auto) Mineral # (Auto) Eos # (Auto) Seg Neutrophils % Seg Neuts % (Manual) Baso # (Auto) Lymphocytes % (Manual) Monocytes % (Manual) Eosinophils % (Manual) Basophils % (Manual) Seg Neutrophils # Seg Neutrophils # Man Lymphocytes # (Manual) Monocytes # (Manual) Eosinophils # (Manual) Nucleated RBC % Basophils # (Manual) PT INR APTT Heparin Anti-Xa Level ABG pH POC ABG pO2 ABG pO2 ABG HCO3 ABG O2 Saturation ABG Base Excess POC ABG pCO2 ABG Hemoglobin ABG Oxyhemoglobin ABG Sodium ABG Chloride ABG Glucose Oxyhemoglobin Sodium Potassium Chloride Carbon Dioxide BUN Creatinine Glucose POC Glucose 139 H 173 H 143 H Lactic Acid Calcium Phosphorus Magnesium AST ALT Lactate Dehydrogenase Total Bilirubin Direct Bilirubin CK-MB (CK-2) C-Reactive Protein NT-Pro-B Natriuret Pep Total Protein Albumin Arterial Blood Glucose Urine WBC (Auto) Urine Creatinine 02/11/20 02/11/20 02/12/20 13:43 14:11 00:15 WBC RBC Hgb Hct MCHC RDW MCV MCH Lymph % (Auto) Mineral % (Auto) Mineral # Eos # Lymph # (Auto) Mineral # (Auto) Eos # (Auto) Seg Neutrophils % Seg Neuts % (Manual) Baso # (Auto) Lymphocytes % (Manual) Monocytes % (Manual) Eosinophils % (Manual) Basophils % (Manual) Seg Neutrophils # Seg Neutrophils # Man Lymphocytes # (Manual) Monocytes # (Manual) Eosinophils # (Manual) Nucleated RBC % Basophils # (Manual) PT INR APTT Heparin Anti-Xa Level ABG pH 7.502 H POC ABG pO2 77.7 L ABG pO2 ABG HCO3 ABG O2 Saturation ABG Base Excess POC ABG pCO2 ABG Hemoglobin 11.1 L ABG Oxyhemoglobin ABG Sodium ABG Chloride 108.0 H ABG Glucose 151 H Oxyhemoglobin Sodium Potassium Chloride Carbon Dioxide BUN Creatinine Glucose POC Glucose 130 H 125 H Lactic Acid Calcium Phosphorus Magnesium AST ALT Lactate Dehydrogenase Total Bilirubin Direct Bilirubin CK-MB (CK-2) C-Reactive Protein NT-Pro-B Natriuret Pep Total Protein Albumin Arterial Blood Glucose 151 H Urine WBC (Auto) Urine Creatinine 02/12/20 02/12/20 02/12/20 04:56 04:56 17:42 WBC RBC Hgb 9.9 L Hct 31.8 L MCHC 31 L RDW 19.4 H MCV 79 L MCH 25 L Lymph % (Auto) Mineral % (Auto) 10.3 H Mineral # Eos # Lymph # (Auto) Mineral # (Auto) 1.0 H Eos # (Auto) Seg Neutrophils % Seg Neuts % (Manual) Baso # (Auto) Lymphocytes % (Manual) Monocytes % (Manual) Eosinophils % (Manual) Basophils % (Manual) Seg Neutrophils # Seg Neutrophils # Man Lymphocytes # (Manual) Monocytes # (Manual) Eosinophils # (Manual) Nucleated RBC % Basophils # (Manual) PT INR APTT Heparin Anti-Xa Level ABG pH POC ABG pO2 ABG pO2 ABG HCO3 ABG O2 Saturation ABG Base Excess POC ABG pCO2 ABG Hemoglobin ABG Oxyhemoglobin ABG Sodium ABG Chloride ABG Glucose Oxyhemoglobin Sodium 149 H Potassium Chloride 108.6 H Carbon Dioxide BUN 28 H Creatinine 0.7 L Glucose 108 H POC Glucose 113 H Lactic Acid Calcium Phosphorus Magnesium AST ALT Lactate Dehydrogenase Total Bilirubin Direct Bilirubin CK-MB (CK-2) C-Reactive Protein NT-Pro-B Natriuret Pep Total Protein Albumin Arterial Blood Glucose Urine WBC (Auto) Urine Creatinine 02/13/20 02/13/20 02/13/20 00:39 05:36 12:25 WBC RBC Hgb Hct MCHC RDW MCV MCH Lymph % (Auto) Mineral % (Auto) Mineral # Eos # Lymph # (Auto) Mineral # (Auto) Eos # (Auto) Seg Neutrophils % Seg Neuts % (Manual) Baso # (Auto) Lymphocytes % (Manual) Monocytes % (Manual) Eosinophils % (Manual) Basophils % (Manual) Seg Neutrophils # Seg Neutrophils # Man Lymphocytes # (Manual) Monocytes # (Manual) Eosinophils # (Manual) Nucleated RBC % Basophils # (Manual) PT INR APTT Heparin Anti-Xa Level ABG pH POC ABG pO2 ABG pO2 ABG HCO3 ABG O2 Saturation ABG Base Excess POC ABG pCO2 ABG Hemoglobin ABG Oxyhemoglobin ABG Sodium ABG Chloride ABG Glucose Oxyhemoglobin Sodium Potassium Chloride Carbon Dioxide BUN Creatinine Glucose POC Glucose 129 H 126 H 129 H Lactic Acid Calcium Phosphorus Magnesium AST ALT Lactate Dehydrogenase Total Bilirubin Direct Bilirubin CK-MB (CK-2) C-Reactive Protein NT-Pro-B Natriuret Pep Total Protein Albumin Arterial Blood Glucose Urine WBC (Auto) Urine Creatinine 02/13/20 02/14/20 02/14/20 17:59 00:15 05:41 WBC RBC Hgb Hct MCHC RDW MCV MCH Lymph % (Auto) Mineral % (Auto) Mineral # Eos # Lymph # (Auto) Mineral # (Auto) Eos # (Auto) Seg Neutrophils % Seg Neuts % (Manual) Baso # (Auto) Lymphocytes % (Manual) Monocytes % (Manual) Eosinophils % (Manual) Basophils % (Manual) Seg Neutrophils # Seg Neutrophils # Man Lymphocytes # (Manual) Monocytes # (Manual) Eosinophils # (Manual) Nucleated RBC % Basophils # (Manual) PT INR APTT Heparin Anti-Xa Level ABG pH POC ABG pO2 ABG pO2 ABG HCO3 ABG O2 Saturation ABG Base Excess POC ABG pCO2 ABG Hemoglobin ABG Oxyhemoglobin ABG Sodium ABG Chloride ABG Glucose Oxyhemoglobin Sodium Potassium Chloride Carbon Dioxide BUN Creatinine Glucose POC Glucose 153 H 130 H 130 H Lactic Acid Calcium Phosphorus Magnesium AST ALT Lactate Dehydrogenase Total Bilirubin Direct Bilirubin CK-MB (CK-2) C-Reactive Protein NT-Pro-B Natriuret Pep Total Protein Albumin Arterial Blood Glucose Urine WBC (Auto) Urine Creatinine 02/14/20 02/15/20 02/15/20 11:32 00:12 05:27 WBC RBC Hgb Hct MCHC RDW MCV MCH Lymph % (Auto) Mineral % (Auto) Mineral # Eos # Lymph # (Auto) Mineral # (Auto) Eos # (Auto) Seg Neutrophils % Seg Neuts % (Manual) Baso # (Auto) Lymphocytes % (Manual) Monocytes % (Manual) Eosinophils % (Manual) Basophils % (Manual) Seg Neutrophils # Seg Neutrophils # Man Lymphocytes # (Manual) Monocytes # (Manual) Eosinophils # (Manual) Nucleated RBC % Basophils # (Manual) PT INR APTT Heparin Anti-Xa Level ABG pH POC ABG pO2 ABG pO2 ABG HCO3 ABG O2 Saturation ABG Base Excess POC ABG pCO2 ABG Hemoglobin ABG Oxyhemoglobin ABG Sodium ABG Chloride ABG Glucose Oxyhemoglobin Sodium Potassium Chloride Carbon Dioxide BUN Creatinine Glucose POC Glucose 157 H 124 H 111 H Lactic Acid Calcium Phosphorus Magnesium AST ALT Lactate Dehydrogenase Total Bilirubin Direct Bilirubin CK-MB (CK-2) C-Reactive Protein NT-Pro-B Natriuret Pep Total Protein Albumin Arterial Blood Glucose Urine WBC (Auto) Urine Creatinine 02/15/20 02/15/20 02/15/20 06:59 06:59 11:14 WBC RBC Hgb 10.4 L Hct 33.7 L MCHC 31 L RDW 19.4 H MCV 80 L MCH 24 L Lymph % (Auto) Mineral % (Auto) Mineral # Eos # Lymph # (Auto) Mineral # (Auto) Eos # (Auto) Seg Neutrophils % Seg Neuts % (Manual) Baso # (Auto) Lymphocytes % (Manual) Monocytes % (Manual) Eosinophils % (Manual) Basophils % (Manual) 2.0 H Seg Neutrophils # Seg Neutrophils # Man Lymphocytes # (Manual) Monocytes # (Manual) Eosinophils # (Manual) Nucleated RBC % 1.0 H Basophils # (Manual) 0.2 H PT INR APTT Heparin Anti-Xa Level ABG pH POC ABG pO2 ABG pO2 ABG HCO3 ABG O2 Saturation ABG Base Excess POC ABG pCO2 ABG Hemoglobin ABG Oxyhemoglobin ABG Sodium ABG Chloride ABG Glucose Oxyhemoglobin Sodium 149 H Potassium Chloride 108.4 H Carbon Dioxide 31 H BUN 40 H Creatinine 0.7 L Glucose 150 H POC Glucose 128 H Lactic Acid Calcium Phosphorus Magnesium AST ALT Lactate Dehydrogenase Total Bilirubin Direct Bilirubin CK-MB (CK-2) C-Reactive Protein NT-Pro-B Natriuret Pep Total Protein Albumin Arterial Blood Glucose Urine WBC (Auto) Urine Creatinine 02/15/20 02/15/20 02/16/20 17:46 23:50 05:03 WBC RBC Hgb Hct MCHC RDW MCV MCH Lymph % (Auto) Mineral % (Auto) Mineral # Eos # Lymph # (Auto) Mineral # (Auto) Eos # (Auto) Seg Neutrophils % Seg Neuts % (Manual) Baso # (Auto) Lymphocytes % (Manual) Monocytes % (Manual) Eosinophils % (Manual) Basophils % (Manual) Seg Neutrophils # Seg Neutrophils # Man Lymphocytes # (Manual) Monocytes # (Manual) Eosinophils # (Manual) Nucleated RBC % Basophils # (Manual) PT INR APTT Heparin Anti-Xa Level ABG pH POC ABG pO2 ABG pO2 ABG HCO3 ABG O2 Saturation ABG Base Excess POC ABG pCO2 ABG Hemoglobin ABG Oxyhemoglobin ABG Sodium ABG Chloride ABG Glucose Oxyhemoglobin Sodium Potassium Chloride Carbon Dioxide BUN Creatinine Glucose POC Glucose 154 H 135 H 148 H Lactic Acid Calcium Phosphorus Magnesium AST ALT Lactate Dehydrogenase Total Bilirubin Direct Bilirubin CK-MB (CK-2) C-Reactive Protein NT-Pro-B Natriuret Pep Total Protein Albumin Arterial Blood Glucose Urine WBC (Auto) Urine Creatinine 02/16/20 02/16/20 02/16/20 07:53 11:28 17:52 WBC RBC Hgb Hct MCHC RDW MCV MCH Lymph % (Auto) Mineral % (Auto) Mineral # Eos # Lymph # (Auto) Mineral # (Auto) Eos # (Auto) Seg Neutrophils % Seg Neuts % (Manual) Baso # (Auto) Lymphocytes % (Manual) Monocytes % (Manual) Eosinophils % (Manual) Basophils % (Manual) Seg Neutrophils # Seg Neutrophils # Man Lymphocytes # (Manual) Monocytes # (Manual) Eosinophils # (Manual) Nucleated RBC % Basophils # (Manual) PT INR APTT Heparin Anti-Xa Level ABG pH POC ABG pO2 ABG pO2 ABG HCO3 ABG O2 Saturation ABG Base Excess POC ABG pCO2 ABG Hemoglobin ABG Oxyhemoglobin ABG Sodium ABG Chloride ABG Glucose Oxyhemoglobin Sodium Potassium Chloride 107.9 H Carbon Dioxide BUN 38 H Creatinine 0.6 L Glucose 151 H POC Glucose 123 H 152 H Lactic Acid Calcium Phosphorus Magnesium AST ALT Lactate Dehydrogenase Total Bilirubin Direct Bilirubin CK-MB (CK-2) C-Reactive Protein NT-Pro-B Natriuret Pep Total Protein Albumin Arterial Blood Glucose Urine WBC (Auto) Urine Creatinine 02/16/20 02/17/20 02/17/20 23:49 06:24 11:36 WBC RBC Hgb Hct MCHC RDW MCV MCH Lymph % (Auto) Mineral % (Auto) Mineral # Eos # Lymph # (Auto) Mineral # (Auto) Eos # (Auto) Seg Neutrophils % Seg Neuts % (Manual) Baso # (Auto) Lymphocytes % (Manual) Monocytes % (Manual) Eosinophils % (Manual) Basophils % (Manual) Seg Neutrophils # Seg Neutrophils # Man Lymphocytes # (Manual) Monocytes # (Manual) Eosinophils # (Manual) Nucleated RBC % Basophils # (Manual) PT INR APTT Heparin Anti-Xa Level ABG pH POC ABG pO2 ABG pO2 ABG HCO3 ABG O2 Saturation ABG Base Excess POC ABG pCO2 ABG Hemoglobin ABG Oxyhemoglobin ABG Sodium ABG Chloride ABG Glucose Oxyhemoglobin Sodium Potassium Chloride Carbon Dioxide BUN Creatinine Glucose POC Glucose 156 H 193 H 162 H Lactic Acid Calcium Phosphorus Magnesium AST ALT Lactate Dehydrogenase Total Bilirubin Direct Bilirubin CK-MB (CK-2) C-Reactive Protein NT-Pro-B Natriuret Pep Total Protein Albumin Arterial Blood Glucose Urine WBC (Auto) Urine Creatinine 02/17/20 02/17/20 02/18/20 17:55 23:28 05:11 WBC RBC Hgb Hct MCHC RDW MCV MCH Lymph % (Auto) Mineral % (Auto) Mineral # Eos # Lymph # (Auto) Mineral # (Auto) Eos # (Auto) Seg Neutrophils % Seg Neuts % (Manual) Baso # (Auto) Lymphocytes % (Manual) Monocytes % (Manual) Eosinophils % (Manual) Basophils % (Manual) Seg Neutrophils # Seg Neutrophils # Man Lymphocytes # (Manual) Monocytes # (Manual) Eosinophils # (Manual) Nucleated RBC % Basophils # (Manual) PT INR APTT Heparin Anti-Xa Level ABG pH POC ABG pO2 ABG pO2 ABG HCO3 ABG O2 Saturation ABG Base Excess POC ABG pCO2 ABG Hemoglobin ABG Oxyhemoglobin ABG Sodium ABG Chloride ABG Glucose Oxyhemoglobin Sodium Potassium Chloride Carbon Dioxide BUN Creatinine Glucose POC Glucose 165 H 146 H 122 H Lactic Acid Calcium Phosphorus Magnesium AST ALT Lactate Dehydrogenase Total Bilirubin Direct Bilirubin CK-MB (CK-2) C-Reactive Protein NT-Pro-B Natriuret Pep Total Protein Albumin Arterial Blood Glucose Urine WBC (Auto) Urine Creatinine 02/18/20 02/18/20 02/19/20 12:24 17:29 00:01 WBC RBC Hgb Hct MCHC RDW MCV MCH Lymph % (Auto) Mineral % (Auto) Mineral # Eos # Lymph # (Auto) Mineral # (Auto) Eos # (Auto) Seg Neutrophils % Seg Neuts % (Manual) Baso # (Auto) Lymphocytes % (Manual) Monocytes % (Manual) Eosinophils % (Manual) Basophils % (Manual) Seg Neutrophils # Seg Neutrophils # Man Lymphocytes # (Manual) Monocytes # (Manual) Eosinophils # (Manual) Nucleated RBC % Basophils # (Manual) PT INR APTT Heparin Anti-Xa Level ABG pH POC ABG pO2 ABG pO2 ABG HCO3 ABG O2 Saturation ABG Base Excess POC ABG pCO2 ABG Hemoglobin ABG Oxyhemoglobin ABG Sodium ABG Chloride ABG Glucose Oxyhemoglobin Sodium Potassium Chloride Carbon Dioxide BUN Creatinine Glucose POC Glucose 162 H 136 H 145 H Lactic Acid Calcium Phosphorus Magnesium AST ALT Lactate Dehydrogenase Total Bilirubin Direct Bilirubin CK-MB (CK-2) C-Reactive Protein NT-Pro-B Natriuret Pep Total Protein Albumin Arterial Blood Glucose Urine WBC (Auto) Urine Creatinine 02/19/20 02/19/20 02/19/20 05:53 11:44 17:32 WBC RBC Hgb Hct MCHC RDW MCV MCH Lymph % (Auto) Mineral % (Auto) Mineral # Eos # Lymph # (Auto) Mineral # (Auto) Eos # (Auto) Seg Neutrophils % Seg Neuts % (Manual) Baso # (Auto) Lymphocytes % (Manual) Monocytes % (Manual) Eosinophils % (Manual) Basophils % (Manual) Seg Neutrophils # Seg Neutrophils # Man Lymphocytes # (Manual) Monocytes # (Manual) Eosinophils # (Manual) Nucleated RBC % Basophils # (Manual) PT INR APTT Heparin Anti-Xa Level ABG pH POC ABG pO2 ABG pO2 ABG HCO3 ABG O2 Saturation ABG Base Excess POC ABG pCO2 ABG Hemoglobin ABG Oxyhemoglobin ABG Sodium ABG Chloride ABG Glucose Oxyhemoglobin Sodium Potassium Chloride Carbon Dioxide BUN Creatinine Glucose POC Glucose 116 H 120 H 154 H Lactic Acid Calcium Phosphorus Magnesium AST ALT Lactate Dehydrogenase Total Bilirubin Direct Bilirubin CK-MB (CK-2) C-Reactive Protein NT-Pro-B Natriuret Pep Total Protein Albumin Arterial Blood Glucose Urine WBC (Auto) Urine Creatinine 02/19/20 02/20/20 02/20/20 23:43 00:24 00:24 WBC RBC Hgb 9.4 L Hct 30.0 L MCHC 31 L RDW 20.4 H MCV 79 L MCH 25 L Lymph % (Auto) Mineral % (Auto) 8.5 H Mineral # Eos # Lymph # (Auto) Mineral # (Auto) Eos # (Auto) Seg Neutrophils % Seg Neuts % (Manual) Baso # (Auto) Lymphocytes % (Manual) Monocytes % (Manual) Eosinophils % (Manual) Basophils % (Manual) Seg Neutrophils # Seg Neutrophils # Man Lymphocytes # (Manual) Monocytes # (Manual) Eosinophils # (Manual) Nucleated RBC % Basophils # (Manual) PT INR APTT Heparin Anti-Xa Level ABG pH POC ABG pO2 ABG pO2 ABG HCO3 ABG O2 Saturation ABG Base Excess POC ABG pCO2 ABG Hemoglobin ABG Oxyhemoglobin ABG Sodium ABG Chloride ABG Glucose Oxyhemoglobin Sodium 147 H Potassium 3.4 L Chloride Carbon Dioxide 31 H BUN 34 H Creatinine 0.5 L Glucose 135 H POC Glucose 122 H Lactic Acid Calcium Phosphorus Magnesium AST ALT Lactate Dehydrogenase Total Bilirubin Direct Bilirubin CK-MB (CK-2) C-Reactive Protein NT-Pro-B Natriuret Pep Total Protein Albumin Arterial Blood Glucose Urine WBC (Auto) Urine Creatinine 02/20/20 02/20/20 02/20/20 06:07 06:45 12:03 WBC RBC Hgb Hct MCHC RDW MCV MCH Lymph % (Auto) Mineral % (Auto) Mineral # Eos # Lymph # (Auto) Mineral # (Auto) Eos # (Auto) Seg Neutrophils % Seg Neuts % (Manual) Baso # (Auto) Lymphocytes % (Manual) Monocytes % (Manual) Eosinophils % (Manual) Basophils % (Manual) Seg Neutrophils # Seg Neutrophils # Man Lymphocytes # (Manual) Monocytes # (Manual) Eosinophils # (Manual) Nucleated RBC % Basophils # (Manual) PT INR APTT Heparin Anti-Xa Level ABG pH 7.461 H POC ABG pO2 ABG pO2 ABG HCO3 33.3 H ABG O2 Saturation ABG Base Excess 8.4 H POC ABG pCO2 ABG Hemoglobin 10.0 L ABG Oxyhemoglobin ABG Sodium ABG Chloride ABG Glucose Oxyhemoglobin 94.1 L Sodium Potassium Chloride Carbon Dioxide BUN Creatinine Glucose POC Glucose 109 H 128 H Lactic Acid Calcium Phosphorus Magnesium AST ALT Lactate Dehydrogenase Total Bilirubin Direct Bilirubin CK-MB (CK-2) C-Reactive Protein NT-Pro-B Natriuret Pep Total Protein Albumin Arterial Blood Glucose Urine WBC (Auto) Urine Creatinine 02/20/20 02/20/20 02/21/20 18:02 23:55 05:42 WBC RBC Hgb Hct MCHC RDW MCV MCH Lymph % (Auto) Mineral % (Auto) Mineral # Eos # Lymph # (Auto) Mineral # (Auto) Eos # (Auto) Seg Neutrophils % Seg Neuts % (Manual) Baso # (Auto) Lymphocytes % (Manual) Monocytes % (Manual) Eosinophils % (Manual) Basophils % (Manual) Seg Neutrophils # Seg Neutrophils # Man Lymphocytes # (Manual) Monocytes # (Manual) Eosinophils # (Manual) Nucleated RBC % Basophils # (Manual) PT INR APTT Heparin Anti-Xa Level ABG pH POC ABG pO2 ABG pO2 ABG HCO3 ABG O2 Saturation ABG Base Excess POC ABG pCO2 ABG Hemoglobin ABG Oxyhemoglobin ABG Sodium ABG Chloride ABG Glucose Oxyhemoglobin Sodium Potassium Chloride Carbon Dioxide BUN Creatinine Glucose POC Glucose 118 H 125 H 127 H Lactic Acid Calcium Phosphorus Magnesium AST ALT Lactate Dehydrogenase Total Bilirubin Direct Bilirubin CK-MB (CK-2) C-Reactive Protein NT-Pro-B Natriuret Pep Total Protein Albumin Arterial Blood Glucose Urine WBC (Auto) Urine Creatinine 02/21/20 02/21/20 02/21/20 12:10 17:35 23:40 WBC RBC Hgb Hct MCHC RDW MCV MCH Lymph % (Auto) Mineral % (Auto) Mineral # Eos # Lymph # (Auto) Mineral # (Auto) Eos # (Auto) Seg Neutrophils % Seg Neuts % (Manual) Baso # (Auto) Lymphocytes % (Manual) Monocytes % (Manual) Eosinophils % (Manual) Basophils % (Manual) Seg Neutrophils # Seg Neutrophils # Man Lymphocytes # (Manual) Monocytes # (Manual) Eosinophils # (Manual) Nucleated RBC % Basophils # (Manual) PT INR APTT Heparin Anti-Xa Level ABG pH POC ABG pO2 ABG pO2 ABG HCO3 ABG O2 Saturation ABG Base Excess POC ABG pCO2 ABG Hemoglobin ABG Oxyhemoglobin ABG Sodium ABG Chloride ABG Glucose Oxyhemoglobin Sodium Potassium Chloride Carbon Dioxide BUN Creatinine Glucose POC Glucose 128 H 113 H 125 H Lactic Acid Calcium Phosphorus Magnesium AST ALT Lactate Dehydrogenase Total Bilirubin Direct Bilirubin CK-MB (CK-2) C-Reactive Protein NT-Pro-B Natriuret Pep Total Protein Albumin Arterial Blood Glucose Urine WBC (Auto) Urine Creatinine 02/22/20 02/22/20 02/22/20 05:57 08:06 08:06 WBC RBC Hgb 10.8 L Hct 35.2 L MCHC 31 L RDW 21.8 H MCV 80 L MCH 25 L Lymph % (Auto) Mineral % (Auto) Mineral # Eos # Lymph # (Auto) Mineral # (Auto) Eos # (Auto) Seg Neutrophils % 71.5 H Seg Neuts % (Manual) Baso # (Auto) Lymphocytes % (Manual) Monocytes % (Manual) Eosinophils % (Manual) Basophils % (Manual) Seg Neutrophils # Seg Neutrophils # Man Lymphocytes # (Manual) Monocytes # (Manual) Eosinophils # (Manual) Nucleated RBC % Basophils # (Manual) PT INR APTT Heparin Anti-Xa Level ABG pH POC ABG pO2 ABG pO2 ABG HCO3 ABG O2 Saturation ABG Base Excess POC ABG pCO2 ABG Hemoglobin ABG Oxyhemoglobin ABG Sodium ABG Chloride ABG Glucose Oxyhemoglobin Sodium 146 H Potassium Chloride Carbon Dioxide 34 H BUN 21 H Creatinine 0.4 L Glucose 149 H POC Glucose 138 H Lactic Acid Calcium Phosphorus Magnesium AST ALT Lactate Dehydrogenase Total Bilirubin Direct Bilirubin CK-MB (CK-2) C-Reactive Protein NT-Pro-B Natriuret Pep Total Protein Albumin Arterial Blood Glucose Urine WBC (Auto) Urine Creatinine 02/22/20 02/22/20 02/22/20 11:47 17:11 23:25 WBC RBC Hgb Hct MCHC RDW MCV MCH Lymph % (Auto) Mineral % (Auto) Mineral # Eos # Lymph # (Auto) Mineral # (Auto) Eos # (Auto) Seg Neutrophils % Seg Neuts % (Manual) Baso # (Auto) Lymphocytes % (Manual) Monocytes % (Manual) Eosinophils % (Manual) Basophils % (Manual) Seg Neutrophils # Seg Neutrophils # Man Lymphocytes # (Manual) Monocytes # (Manual) Eosinophils # (Manual) Nucleated RBC % Basophils # (Manual) PT INR APTT Heparin Anti-Xa Level ABG pH POC ABG pO2 ABG pO2 ABG HCO3 ABG O2 Saturation ABG Base Excess POC ABG pCO2 ABG Hemoglobin ABG Oxyhemoglobin ABG Sodium ABG Chloride ABG Glucose Oxyhemoglobin Sodium Potassium Chloride Carbon Dioxide BUN Creatinine Glucose POC Glucose 149 H 144 H 142 H Lactic Acid Calcium Phosphorus Magnesium AST ALT Lactate Dehydrogenase Total Bilirubin Direct Bilirubin CK-MB (CK-2) C-Reactive Protein NT-Pro-B Natriuret Pep Total Protein Albumin Arterial Blood Glucose Urine WBC (Auto) Urine Creatinine 02/23/20 02/23/20 02/23/20 05:22 11:37 18:14 WBC RBC Hgb Hct MCHC RDW MCV MCH Lymph % (Auto) Mineral % (Auto) Mineral # Eos # Lymph # (Auto) Mineral # (Auto) Eos # (Auto) Seg Neutrophils % Seg Neuts % (Manual) Baso # (Auto) Lymphocytes % (Manual) Monocytes % (Manual) Eosinophils % (Manual) Basophils % (Manual) Seg Neutrophils # Seg Neutrophils # Man Lymphocytes # (Manual) Monocytes # (Manual) Eosinophils # (Manual) Nucleated RBC % Basophils # (Manual) PT INR APTT Heparin Anti-Xa Level ABG pH POC ABG pO2 ABG pO2 ABG HCO3 ABG O2 Saturation ABG Base Excess POC ABG pCO2 ABG Hemoglobin ABG Oxyhemoglobin ABG Sodium ABG Chloride ABG Glucose Oxyhemoglobin Sodium Potassium Chloride Carbon Dioxide BUN Creatinine Glucose POC Glucose 144 H 113 H 127 H Lactic Acid Calcium Phosphorus Magnesium AST ALT Lactate Dehydrogenase Total Bilirubin Direct Bilirubin CK-MB (CK-2) C-Reactive Protein NT-Pro-B Natriuret Pep Total Protein Albumin Arterial Blood Glucose Urine WBC (Auto) Urine Creatinine 02/23/20 02/24/20 02/24/20 23:45 05:50 11:24 WBC RBC Hgb Hct MCHC RDW MCV MCH Lymph % (Auto) Mineral % (Auto) Mineral # Eos # Lymph # (Auto) Mineral # (Auto) Eos # (Auto) Seg Neutrophils % Seg Neuts % (Manual) Baso # (Auto) Lymphocytes % (Manual) Monocytes % (Manual) Eosinophils % (Manual) Basophils % (Manual) Seg Neutrophils # Seg Neutrophils # Man Lymphocytes # (Manual) Monocytes # (Manual) Eosinophils # (Manual) Nucleated RBC % Basophils # (Manual) PT INR APTT Heparin Anti-Xa Level ABG pH POC ABG pO2 ABG pO2 ABG HCO3 ABG O2 Saturation ABG Base Excess POC ABG pCO2 ABG Hemoglobin ABG Oxyhemoglobin ABG Sodium ABG Chloride ABG Glucose Oxyhemoglobin Sodium Potassium Chloride Carbon Dioxide BUN Creatinine Glucose POC Glucose 123 H 117 H 126 H Lactic Acid Calcium Phosphorus Magnesium AST ALT Lactate Dehydrogenase Total Bilirubin Direct Bilirubin CK-MB (CK-2) C-Reactive Protein NT-Pro-B Natriuret Pep Total Protein Albumin Arterial Blood Glucose Urine WBC (Auto) Urine Creatinine 12/02/20 12/02/20 12/03/20 18:35 23:27 05:20 WBC RBC Hgb Hct MCHC RDW MCV MCH Lymph % (Auto) Mineral % (Auto) Mineral # Eos # Lymph # (Auto) Mineral # (Auto) Eos # (Auto) Seg Neutrophils % Seg Neuts % (Manual) Baso # (Auto) Lymphocytes % (Manual) Monocytes % (Manual) Eosinophils % (Manual) Basophils % (Manual) Seg Neutrophils # Seg Neutrophils # Man Lymphocytes # (Manual) Monocytes # (Manual) Eosinophils # (Manual) Nucleated RBC % Basophils # (Manual) PT INR APTT Heparin Anti-Xa Level ABG pH POC ABG pO2 ABG pO2 ABG HCO3 ABG O2 Saturation ABG Base Excess POC ABG pCO2 ABG Hemoglobin ABG Oxyhemoglobin ABG Sodium ABG Chloride ABG Glucose Oxyhemoglobin Sodium Potassium Chloride Carbon Dioxide BUN Creatinine Glucose POC Glucose 121 H 127 H 133 H Lactic Acid Calcium Phosphorus Magnesium AST ALT Lactate Dehydrogenase Total Bilirubin Direct Bilirubin CK-MB (CK-2) C-Reactive Protein NT-Pro-B Natriuret Pep Total Protein Albumin Arterial Blood Glucose Urine WBC (Auto) Urine Creatinine 02/25/20 02/25/20 02/25/20 12:08 17:26 23:33 WBC RBC Hgb Hct MCHC RDW MCV MCH Lymph % (Auto) Mineral % (Auto) Mineral # Eos # Lymph # (Auto) Mineral # (Auto) Eos # (Auto) Seg Neutrophils % Seg Neuts % (Manual) Baso # (Auto) Lymphocytes % (Manual) Monocytes % (Manual) Eosinophils % (Manual) Basophils % (Manual) Seg Neutrophils # Seg Neutrophils # Man Lymphocytes # (Manual) Monocytes # (Manual) Eosinophils # (Manual) Nucleated RBC % Basophils # (Manual) PT INR APTT Heparin Anti-Xa Level ABG pH POC ABG pO2 ABG pO2 ABG HCO3 ABG O2 Saturation ABG Base Excess POC ABG pCO2 ABG Hemoglobin ABG Oxyhemoglobin ABG Sodium ABG Chloride ABG Glucose Oxyhemoglobin Sodium Potassium Chloride Carbon Dioxide BUN Creatinine Glucose POC Glucose 109 H 120 H 120 H Lactic Acid Calcium Phosphorus Magnesium AST ALT Lactate Dehydrogenase Total Bilirubin Direct Bilirubin CK-MB (CK-2) C-Reactive Protein NT-Pro-B Natriuret Pep Total Protein Albumin Arterial Blood Glucose Urine WBC (Auto) Urine Creatinine 02/26/20 02/26/20 02/27/20 05:33 07:50 12:13 WBC RBC Hgb Hct MCHC RDW MCV MCH Lymph % (Auto) Mineral % (Auto) Mineral # Eos # Lymph # (Auto) Mineral # (Auto) Eos # (Auto) Seg Neutrophils % Seg Neuts % (Manual) Baso # (Auto) Lymphocytes % (Manual) Monocytes % (Manual) Eosinophils % (Manual) Basophils % (Manual) Seg Neutrophils # Seg Neutrophils # Man Lymphocytes # (Manual) Monocytes # (Manual) Eosinophils # (Manual) Nucleated RBC % Basophils # (Manual) PT INR APTT Heparin Anti-Xa Level ABG pH POC ABG pO2 ABG pO2 ABG HCO3 ABG O2 Saturation ABG Base Excess POC ABG pCO2 ABG Hemoglobin ABG Oxyhemoglobin ABG Sodium ABG Chloride ABG Glucose Oxyhemoglobin Sodium Potassium Chloride Carbon Dioxide BUN Creatinine Glucose POC Glucose 106 H 130 H Lactic Acid Calcium Phosphorus Magnesium AST ALT Lactate Dehydrogenase Total Bilirubin Direct Bilirubin CK-MB (CK-2) C-Reactive Protein NT-Pro-B Natriuret Pep Total Protein Albumin Arterial Blood Glucose Urine WBC (Auto) > 182.0 H Urine Creatinine 02/27/20 02/27/20 02/28/20 18:20 23:33 05:01 WBC RBC Hgb Hct MCHC RDW MCV MCH Lymph % (Auto) Mineral % (Auto) Mineral # Eos # Lymph # (Auto) Mineral # (Auto) Eos # (Auto) Seg Neutrophils % Seg Neuts % (Manual) Baso # (Auto) Lymphocytes % (Manual) Monocytes % (Manual) Eosinophils % (Manual) Basophils % (Manual) Seg Neutrophils # Seg Neutrophils # Man Lymphocytes # (Manual) Monocytes # (Manual) Eosinophils # (Manual) Nucleated RBC % Basophils # (Manual) PT INR APTT Heparin Anti-Xa Level ABG pH POC ABG pO2 ABG pO2 ABG HCO3 ABG O2 Saturation ABG Base Excess POC ABG pCO2 ABG Hemoglobin ABG Oxyhemoglobin ABG Sodium ABG Chloride ABG Glucose Oxyhemoglobin Sodium Potassium Chloride Carbon Dioxide BUN Creatinine Glucose POC Glucose 109 H 124 H 134 H Lactic Acid Calcium Phosphorus Magnesium AST ALT Lactate Dehydrogenase Total Bilirubin Direct Bilirubin CK-MB (CK-2) C-Reactive Protein NT-Pro-B Natriuret Pep Total Protein Albumin Arterial Blood Glucose Urine WBC (Auto) Urine Creatinine 02/28/20 02/28/20 02/28/20 11:54 18:16 23:03 WBC RBC Hgb Hct MCHC RDW MCV MCH Lymph % (Auto) Mineral % (Auto) Mineral # Eos # Lymph # (Auto) Mineral # (Auto) Eos # (Auto) Seg Neutrophils % Seg Neuts % (Manual) Baso # (Auto) Lymphocytes % (Manual) Monocytes % (Manual) Eosinophils % (Manual) Basophils % (Manual) Seg Neutrophils # Seg Neutrophils # Man Lymphocytes # (Manual) Monocytes # (Manual) Eosinophils # (Manual) Nucleated RBC % Basophils # (Manual) PT INR APTT Heparin Anti-Xa Level ABG pH POC ABG pO2 ABG pO2 ABG HCO3 ABG O2 Saturation ABG Base Excess POC ABG pCO2 ABG Hemoglobin ABG Oxyhemoglobin ABG Sodium ABG Chloride ABG Glucose Oxyhemoglobin Sodium Potassium Chloride Carbon Dioxide BUN Creatinine Glucose POC Glucose 133 H 134 H 146 H Lactic Acid Calcium Phosphorus Magnesium AST ALT Lactate Dehydrogenase Total Bilirubin Direct Bilirubin CK-MB (CK-2) C-Reactive Protein NT-Pro-B Natriuret Pep Total Protein Albumin Arterial Blood Glucose Urine WBC (Auto) Urine Creatinine 02/29/20 02/29/20 02/29/20 05:24 11:34 17:12 WBC RBC Hgb Hct MCHC RDW MCV MCH Lymph % (Auto) Mineral % (Auto) Mineral # Eos # Lymph # (Auto) Mineral # (Auto) Eos # (Auto) Seg Neutrophils % Seg Neuts % (Manual) Baso # (Auto) Lymphocytes % (Manual) Monocytes % (Manual) Eosinophils % (Manual) Basophils % (Manual) Seg Neutrophils # Seg Neutrophils # Man Lymphocytes # (Manual) Monocytes # (Manual) Eosinophils # (Manual) Nucleated RBC % Basophils # (Manual) PT INR APTT Heparin Anti-Xa Level ABG pH POC ABG pO2 ABG pO2 ABG HCO3 ABG O2 Saturation ABG Base Excess POC ABG pCO2 ABG Hemoglobin ABG Oxyhemoglobin ABG Sodium ABG Chloride ABG Glucose Oxyhemoglobin Sodium Potassium Chloride Carbon Dioxide BUN Creatinine Glucose POC Glucose 139 H 141 H 157 H Lactic Acid Calcium Phosphorus Magnesium AST ALT Lactate Dehydrogenase Total Bilirubin Direct Bilirubin CK-MB (CK-2) C-Reactive Protein NT-Pro-B Natriuret Pep Total Protein Albumin Arterial Blood Glucose Urine WBC (Auto) Urine Creatinine 02/29/20 03/01/20 03/01/20 23:35 06:00 11:53 WBC RBC Hgb Hct MCHC RDW MCV MCH Lymph % (Auto) Mineral % (Auto) Mineral # Eos # Lymph # (Auto) Mineral # (Auto) Eos # (Auto) Seg Neutrophils % Seg Neuts % (Manual) Baso # (Auto) Lymphocytes % (Manual) Monocytes % (Manual) Eosinophils % (Manual) Basophils % (Manual) Seg Neutrophils # Seg Neutrophils # Man Lymphocytes # (Manual) Monocytes # (Manual) Eosinophils # (Manual) Nucleated RBC % Basophils # (Manual) PT INR APTT Heparin Anti-Xa Level ABG pH POC ABG pO2 ABG pO2 ABG HCO3 ABG O2 Saturation ABG Base Excess POC ABG pCO2 ABG Hemoglobin ABG Oxyhemoglobin ABG Sodium ABG Chloride ABG Glucose Oxyhemoglobin Sodium Potassium Chloride Carbon Dioxide BUN Creatinine Glucose POC Glucose 120 H 132 H 136 H Lactic Acid Calcium Phosphorus Magnesium AST ALT Lactate Dehydrogenase Total Bilirubin Direct Bilirubin CK-MB (CK-2) C-Reactive Protein NT-Pro-B Natriuret Pep Total Protein Albumin Arterial Blood Glucose Urine WBC (Auto) Urine Creatinine 03/01/20 03/01/20 03/02/20 17:36 23:16 05:12 WBC RBC Hgb Hct MCHC RDW MCV MCH Lymph % (Auto) Mineral % (Auto) Mineral # Eos # Lymph # (Auto) Mineral # (Auto) Eos # (Auto) Seg Neutrophils % Seg Neuts % (Manual) Baso # (Auto) Lymphocytes % (Manual) Monocytes % (Manual) Eosinophils % (Manual) Basophils % (Manual) Seg Neutrophils # Seg Neutrophils # Man Lymphocytes # (Manual) Monocytes # (Manual) Eosinophils # (Manual) Nucleated RBC % Basophils # (Manual) PT INR APTT Heparin Anti-Xa Level ABG pH POC ABG pO2 ABG pO2 ABG HCO3 ABG O2 Saturation ABG Base Excess POC ABG pCO2 ABG Hemoglobin ABG Oxyhemoglobin ABG Sodium ABG Chloride ABG Glucose Oxyhemoglobin Sodium Potassium Chloride Carbon Dioxide BUN Creatinine Glucose POC Glucose 171 H 164 H 176 H Lactic Acid Calcium Phosphorus Magnesium AST ALT Lactate Dehydrogenase Total Bilirubin Direct Bilirubin CK-MB (CK-2) C-Reactive Protein NT-Pro-B Natriuret Pep Total Protein Albumin Arterial Blood Glucose Urine WBC (Auto) Urine Creatinine 03/02/20 03/02/20 03/03/20 11:42 18:01 00:06 WBC RBC Hgb Hct MCHC RDW MCV MCH Lymph % (Auto) Mineral % (Auto) Mineral # Eos # Lymph # (Auto) Mineral # (Auto) Eos # (Auto) Seg Neutrophils % Seg Neuts % (Manual) Baso # (Auto) Lymphocytes % (Manual) Monocytes % (Manual) Eosinophils % (Manual) Basophils % (Manual) Seg Neutrophils # Seg Neutrophils # Man Lymphocytes # (Manual) Monocytes # (Manual) Eosinophils # (Manual) Nucleated RBC % Basophils # (Manual) PT INR APTT Heparin Anti-Xa Level ABG pH POC ABG pO2 ABG pO2 ABG HCO3 ABG O2 Saturation ABG Base Excess POC ABG pCO2 ABG Hemoglobin ABG Oxyhemoglobin ABG Sodium ABG Chloride ABG Glucose Oxyhemoglobin Sodium Potassium Chloride Carbon Dioxide BUN Creatinine Glucose POC Glucose 150 H 156 H 156 H Lactic Acid Calcium Phosphorus Magnesium AST ALT Lactate Dehydrogenase Total Bilirubin Direct Bilirubin CK-MB (CK-2) C-Reactive Protein NT-Pro-B Natriuret Pep Total Protein Albumin Arterial Blood Glucose Urine WBC (Auto) Urine Creatinine 03/03/20 03/03/20 03/03/20 03:31 11:20 16:55 WBC RBC Hgb Hct MCHC RDW MCV MCH Lymph % (Auto) Mineral % (Auto) Mineral # Eos # Lymph # (Auto) Mineral # (Auto) Eos # (Auto) Seg Neutrophils % Seg Neuts % (Manual) Baso # (Auto) Lymphocytes % (Manual) Monocytes % (Manual) Eosinophils % (Manual) Basophils % (Manual) Seg Neutrophils # Seg Neutrophils # Man Lymphocytes # (Manual) Monocytes # (Manual) Eosinophils # (Manual) Nucleated RBC % Basophils # (Manual) PT INR APTT Heparin Anti-Xa Level ABG pH POC ABG pO2 ABG pO2 ABG HCO3 ABG O2 Saturation ABG Base Excess POC ABG pCO2 ABG Hemoglobin ABG Oxyhemoglobin ABG Sodium ABG Chloride ABG Glucose Oxyhemoglobin Sodium Potassium Chloride Carbon Dioxide BUN Creatinine Glucose POC Glucose 164 H 125 H 211 H Lactic Acid Calcium Phosphorus Magnesium AST ALT Lactate Dehydrogenase Total Bilirubin Direct Bilirubin CK-MB (CK-2) C-Reactive Protein NT-Pro-B Natriuret Pep Total Protein Albumin Arterial Blood Glucose Urine WBC (Auto) Urine Creatinine 03/04/20 03/04/20 03/04/20 00:29 05:20 12:09 WBC RBC Hgb Hct MCHC RDW MCV MCH Lymph % (Auto) Mineral % (Auto) Mineral # Eos # Lymph # (Auto) Mineral # (Auto) Eos # (Auto) Seg Neutrophils % Seg Neuts % (Manual) Baso # (Auto) Lymphocytes % (Manual) Monocytes % (Manual) Eosinophils % (Manual) Basophils % (Manual) Seg Neutrophils # Seg Neutrophils # Man Lymphocytes # (Manual) Monocytes # (Manual) Eosinophils # (Manual) Nucleated RBC % Basophils # (Manual) PT INR APTT Heparin Anti-Xa Level ABG pH POC ABG pO2 ABG pO2 ABG HCO3 ABG O2 Saturation ABG Base Excess POC ABG pCO2 ABG Hemoglobin ABG Oxyhemoglobin ABG Sodium ABG Chloride ABG Glucose Oxyhemoglobin Sodium Potassium Chloride Carbon Dioxide BUN Creatinine Glucose POC Glucose 169 H 154 H 197 H Lactic Acid Calcium Phosphorus Magnesium AST ALT Lactate Dehydrogenase Total Bilirubin Direct Bilirubin CK-MB (CK-2) C-Reactive Protein NT-Pro-B Natriuret Pep Total Protein Albumin Arterial Blood Glucose Urine WBC (Auto) Urine Creatinine 03/04/20 03/04/20 03/04/20 18:00 20:38 20:38 WBC RBC Hgb 10.1 L Hct 32.7 L MCHC 31 L RDW 24.7 H MCV 79 L MCH 24 L Lymph % (Auto) Mineral % (Auto) 8.9 H Mineral # Eos # Lymph # (Auto) Mineral # (Auto) Eos # (Auto) Seg Neutrophils % Seg Neuts % (Manual) Baso # (Auto) Lymphocytes % (Manual) Monocytes % (Manual) Eosinophils % (Manual) Basophils % (Manual) Seg Neutrophils # Seg Neutrophils # Man Lymphocytes # (Manual) Monocytes # (Manual) Eosinophils # (Manual) Nucleated RBC % Basophils # (Manual) PT INR APTT Heparin Anti-Xa Level ABG pH POC ABG pO2 ABG pO2 ABG HCO3 ABG O2 Saturation ABG Base Excess POC ABG pCO2 ABG Hemoglobin ABG Oxyhemoglobin ABG Sodium ABG Chloride ABG Glucose Oxyhemoglobin Sodium 136 L Potassium Chloride Carbon Dioxide BUN 25 H Creatinine 0.5 L Glucose 148 H POC Glucose 146 H Lactic Acid Calcium Phosphorus Magnesium AST ALT Lactate Dehydrogenase Total Bilirubin Direct Bilirubin CK-MB (CK-2) C-Reactive Protein NT-Pro-B Natriuret Pep Total Protein Albumin Arterial Blood Glucose Urine WBC (Auto) Urine Creatinine 03/04/20 03/05/20 03/05/20 23:17 05:44 11:32 WBC RBC Hgb Hct MCHC RDW MCV MCH Lymph % (Auto) Mineral % (Auto) Mineral # Eos # Lymph # (Auto) Mineral # (Auto) Eos # (Auto) Seg Neutrophils % Seg Neuts % (Manual) Baso # (Auto) Lymphocytes % (Manual) Monocytes % (Manual) Eosinophils % (Manual) Basophils % (Manual) Seg Neutrophils # Seg Neutrophils # Man Lymphocytes # (Manual) Monocytes # (Manual) Eosinophils # (Manual) Nucleated RBC % Basophils # (Manual) PT INR APTT Heparin Anti-Xa Level ABG pH POC ABG pO2 ABG pO2 ABG HCO3 ABG O2 Saturation ABG Base Excess POC ABG pCO2 ABG Hemoglobin ABG Oxyhemoglobin ABG Sodium ABG Chloride ABG Glucose Oxyhemoglobin Sodium Potassium Chloride Carbon Dioxide BUN Creatinine Glucose POC Glucose 139 H 155 H 124 H Lactic Acid Calcium Phosphorus Magnesium AST ALT Lactate Dehydrogenase Total Bilirubin Direct Bilirubin CK-MB (CK-2) C-Reactive Protein NT-Pro-B Natriuret Pep Total Protein Albumin Arterial Blood Glucose Urine WBC (Auto) Urine Creatinine 03/05/20 03/05/20 03/06/20 17:45 23:18 12:16 WBC RBC Hgb Hct MCHC RDW MCV MCH Lymph % (Auto) Mineral % (Auto) Mineral # Eos # Lymph # (Auto) Mineral # (Auto) Eos # (Auto) Seg Neutrophils % Seg Neuts % (Manual) Baso # (Auto) Lymphocytes % (Manual) Monocytes % (Manual) Eosinophils % (Manual) Basophils % (Manual) Seg Neutrophils # Seg Neutrophils # Man Lymphocytes # (Manual) Monocytes # (Manual) Eosinophils # (Manual) Nucleated RBC % Basophils # (Manual) PT INR APTT Heparin Anti-Xa Level ABG pH POC ABG pO2 ABG pO2 ABG HCO3 ABG O2 Saturation ABG Base Excess POC ABG pCO2 ABG Hemoglobin ABG Oxyhemoglobin ABG Sodium ABG Chloride ABG Glucose Oxyhemoglobin Sodium Potassium Chloride Carbon Dioxide BUN Creatinine Glucose POC Glucose 171 H 114 H 155 H Lactic Acid Calcium Phosphorus Magnesium AST ALT Lactate Dehydrogenase Total Bilirubin Direct Bilirubin CK-MB (CK-2) C-Reactive Protein NT-Pro-B Natriuret Pep Total Protein Albumin Arterial Blood Glucose Urine WBC (Auto) Urine Creatinine 03/06/20 03/06/20 03/07/20 17:27 23:48 06:02 WBC RBC Hgb Hct MCHC RDW MCV MCH Lymph % (Auto) Mineral % (Auto) Mineral # Eos # Lymph # (Auto) Mineral # (Auto) Eos # (Auto) Seg Neutrophils % Seg Neuts % (Manual) Baso # (Auto) Lymphocytes % (Manual) Monocytes % (Manual) Eosinophils % (Manual) Basophils % (Manual) Seg Neutrophils # Seg Neutrophils # Man Lymphocytes # (Manual) Monocytes # (Manual) Eosinophils # (Manual) Nucleated RBC % Basophils # (Manual) PT INR APTT Heparin Anti-Xa Level ABG pH POC ABG pO2 ABG pO2 ABG HCO3 ABG O2 Saturation ABG Base Excess POC ABG pCO2 ABG Hemoglobin ABG Oxyhemoglobin ABG Sodium ABG Chloride ABG Glucose Oxyhemoglobin Sodium Potassium Chloride Carbon Dioxide BUN Creatinine Glucose POC Glucose 116 H 142 H 161 H Lactic Acid Calcium Phosphorus Magnesium AST ALT Lactate Dehydrogenase Total Bilirubin Direct Bilirubin CK-MB (CK-2) C-Reactive Protein NT-Pro-B Natriuret Pep Total Protein Albumin Arterial Blood Glucose Urine WBC (Auto) Urine Creatinine 03/07/20 03/08/20 03/08/20 11:36 05:18 11:51 WBC RBC Hgb Hct MCHC RDW MCV MCH Lymph % (Auto) Mineral % (Auto) Mineral # Eos # Lymph # (Auto) Mineral # (Auto) Eos # (Auto) Seg Neutrophils % Seg Neuts % (Manual) Baso # (Auto) Lymphocytes % (Manual) Monocytes % (Manual) Eosinophils % (Manual) Basophils % (Manual) Seg Neutrophils # Seg Neutrophils # Man Lymphocytes # (Manual) Monocytes # (Manual) Eosinophils # (Manual) Nucleated RBC % Basophils # (Manual) PT INR APTT Heparin Anti-Xa Level ABG pH POC ABG pO2 ABG pO2 ABG HCO3 ABG O2 Saturation ABG Base Excess POC ABG pCO2 ABG Hemoglobin ABG Oxyhemoglobin ABG Sodium ABG Chloride ABG Glucose Oxyhemoglobin Sodium Potassium Chloride Carbon Dioxide BUN Creatinine Glucose POC Glucose 127 H 142 H 135 H Lactic Acid Calcium Phosphorus Magnesium AST ALT Lactate Dehydrogenase Total Bilirubin Direct Bilirubin CK-MB (CK-2) C-Reactive Protein NT-Pro-B Natriuret Pep Total Protein Albumin Arterial Blood Glucose Urine WBC (Auto) Urine Creatinine 03/08/20 03/08/20 03/09/20 18:14 23:45 05:36 WBC RBC Hgb Hct MCHC RDW MCV MCH Lymph % (Auto) Mineral % (Auto) Mineral # Eos # Lymph # (Auto) Mineral # (Auto) Eos # (Auto) Seg Neutrophils % Seg Neuts % (Manual) Baso # (Auto) Lymphocytes % (Manual) Monocytes % (Manual) Eosinophils % (Manual) Basophils % (Manual) Seg Neutrophils # Seg Neutrophils # Man Lymphocytes # (Manual) Monocytes # (Manual) Eosinophils # (Manual) Nucleated RBC % Basophils # (Manual) PT INR APTT Heparin Anti-Xa Level ABG pH POC ABG pO2 ABG pO2 ABG HCO3 ABG O2 Saturation ABG Base Excess POC ABG pCO2 ABG Hemoglobin ABG Oxyhemoglobin ABG Sodium ABG Chloride ABG Glucose Oxyhemoglobin Sodium Potassium Chloride Carbon Dioxide BUN Creatinine Glucose POC Glucose 125 H 143 H 158 H Lactic Acid Calcium Phosphorus Magnesium AST ALT Lactate Dehydrogenase Total Bilirubin Direct Bilirubin CK-MB (CK-2) C-Reactive Protein NT-Pro-B Natriuret Pep Total Protein Albumin Arterial Blood Glucose Urine WBC (Auto) Urine Creatinine 03/09/20 03/09/20 03/09/20 06:32 06:32 11:34 WBC RBC Hgb 9.8 L Hct 31.6 L MCHC 31 L RDW 23.1 H MCV 80 L MCH 25 L Lymph % (Auto) 35.1 H Mineral % (Auto) 11.4 H Mineral # Eos # Lymph # (Auto) Mineral # (Auto) Eos # (Auto) Seg Neutrophils % Seg Neuts % (Manual) Baso # (Auto) Lymphocytes % (Manual) Monocytes % (Manual) Eosinophils % (Manual) Basophils % (Manual) Seg Neutrophils # Seg Neutrophils # Man Lymphocytes # (Manual) Monocytes # (Manual) Eosinophils # (Manual) Nucleated RBC % Basophils # (Manual) PT INR APTT Heparin Anti-Xa Level ABG pH POC ABG pO2 ABG pO2 ABG HCO3 ABG O2 Saturation ABG Base Excess POC ABG pCO2 ABG Hemoglobin ABG Oxyhemoglobin ABG Sodium ABG Chloride ABG Glucose Oxyhemoglobin Sodium 136 L Potassium Chloride Carbon Dioxide BUN 25 H Creatinine 0.6 L Glucose 170 H POC Glucose 140 H Lactic Acid Calcium Phosphorus Magnesium AST ALT Lactate Dehydrogenase Total Bilirubin Direct Bilirubin CK-MB (CK-2) C-Reactive Protein NT-Pro-B Natriuret Pep Total Protein Albumin Arterial Blood Glucose Urine WBC (Auto) Urine Creatinine 03/09/20 03/09/20 03/10/20 18:10 23:11 05:41 WBC RBC Hgb Hct MCHC RDW MCV MCH Lymph % (Auto) Mineral % (Auto) Mineral # Eos # Lymph # (Auto) Mineral # (Auto) Eos # (Auto) Seg Neutrophils % Seg Neuts % (Manual) Baso # (Auto) Lymphocytes % (Manual) Monocytes % (Manual) Eosinophils % (Manual) Basophils % (Manual) Seg Neutrophils # Seg Neutrophils # Man Lymphocytes # (Manual) Monocytes # (Manual) Eosinophils # (Manual) Nucleated RBC % Basophils # (Manual) PT INR APTT Heparin Anti-Xa Level ABG pH POC ABG pO2 ABG pO2 ABG HCO3 ABG O2 Saturation ABG Base Excess POC ABG pCO2 ABG Hemoglobin ABG Oxyhemoglobin ABG Sodium ABG Chloride ABG Glucose Oxyhemoglobin Sodium Potassium Chloride Carbon Dioxide BUN Creatinine Glucose POC Glucose 153 H 111 H 138 H Lactic Acid Calcium Phosphorus Magnesium AST ALT Lactate Dehydrogenase Total Bilirubin Direct Bilirubin CK-MB (CK-2) C-Reactive Protein NT-Pro-B Natriuret Pep Total Protein Albumin Arterial Blood Glucose Urine WBC (Auto) Urine Creatinine 03/10/20 03/10/20 03/10/20 11:15 17:58 23:36 WBC RBC Hgb Hct MCHC RDW MCV MCH Lymph % (Auto) Mineral % (Auto) Mineral # Eos # Lymph # (Auto) Mineral # (Auto) Eos # (Auto) Seg Neutrophils % Seg Neuts % (Manual) Baso # (Auto) Lymphocytes % (Manual) Monocytes % (Manual) Eosinophils % (Manual) Basophils % (Manual) Seg Neutrophils # Seg Neutrophils # Man Lymphocytes # (Manual) Monocytes # (Manual) Eosinophils # (Manual) Nucleated RBC % Basophils # (Manual) PT INR APTT Heparin Anti-Xa Level ABG pH POC ABG pO2 ABG pO2 ABG HCO3 ABG O2 Saturation ABG Base Excess POC ABG pCO2 ABG Hemoglobin ABG Oxyhemoglobin ABG Sodium ABG Chloride ABG Glucose Oxyhemoglobin Sodium Potassium Chloride Carbon Dioxide BUN Creatinine Glucose POC Glucose 141 H 149 H 148 H Lactic Acid Calcium Phosphorus Magnesium AST ALT Lactate Dehydrogenase Total Bilirubin Direct Bilirubin CK-MB (CK-2) C-Reactive Protein NT-Pro-B Natriuret Pep Total Protein Albumin Arterial Blood Glucose Urine WBC (Auto) Urine Creatinine 03/11/20 03/11/20 03/12/20 05:55 17:43 04:45 WBC RBC Hgb Hct MCHC RDW MCV MCH Lymph % (Auto) Mineral % (Auto) Mineral # Eos # Lymph # (Auto) Mineral # (Auto) Eos # (Auto) Seg Neutrophils % Seg Neuts % (Manual) Baso # (Auto) Lymphocytes % (Manual) Monocytes % (Manual) Eosinophils % (Manual) Basophils % (Manual) Seg Neutrophils # Seg Neutrophils # Man Lymphocytes # (Manual) Monocytes # (Manual) Eosinophils # (Manual) Nucleated RBC % Basophils # (Manual) PT INR APTT Heparin Anti-Xa Level ABG pH 7.454 H POC ABG pO2 69.2 L ABG pO2 ABG HCO3 ABG O2 Saturation ABG Base Excess POC ABG pCO2 ABG Hemoglobin 11.2 L ABG Oxyhemoglobin ABG Sodium 134.7 L ABG Chloride ABG Glucose 151 H Oxyhemoglobin Sodium Potassium Chloride Carbon Dioxide BUN Creatinine Glucose POC Glucose 181 H 107 H Lactic Acid Calcium Phosphorus Magnesium AST ALT Lactate Dehydrogenase Total Bilirubin Direct Bilirubin CK-MB (CK-2) C-Reactive Protein NT-Pro-B Natriuret Pep Total Protein Albumin Arterial Blood Glucose 151 H Urine WBC (Auto) Urine Creatinine 03/12/20 03/12/20 03/12/20 05:36 11:36 17:40 WBC RBC Hgb Hct MCHC RDW MCV MCH Lymph % (Auto) Mineral % (Auto) Mineral # Eos # Lymph # (Auto) Mineral # (Auto) Eos # (Auto) Seg Neutrophils % Seg Neuts % (Manual) Baso # (Auto) Lymphocytes % (Manual) Monocytes % (Manual) Eosinophils % (Manual) Basophils % (Manual) Seg Neutrophils # Seg Neutrophils # Man Lymphocytes # (Manual) Monocytes # (Manual) Eosinophils # (Manual) Nucleated RBC % Basophils # (Manual) PT INR APTT Heparin Anti-Xa Level ABG pH POC ABG pO2 ABG pO2 ABG HCO3 ABG O2 Saturation ABG Base Excess POC ABG pCO2 ABG Hemoglobin ABG Oxyhemoglobin ABG Sodium ABG Chloride ABG Glucose Oxyhemoglobin Sodium Potassium Chloride Carbon Dioxide BUN Creatinine Glucose POC Glucose 137 H 122 H 116 H Lactic Acid Calcium Phosphorus Magnesium AST ALT Lactate Dehydrogenase Total Bilirubin Direct Bilirubin CK-MB (CK-2) C-Reactive Protein NT-Pro-B Natriuret Pep Total Protein Albumin Arterial Blood Glucose Urine WBC (Auto) Urine Creatinine 03/12/20 03/13/20 03/13/20 23:17 05:47 11:35 WBC RBC Hgb Hct MCHC RDW MCV MCH Lymph % (Auto) Mineral % (Auto) Mineral # Eos # Lymph # (Auto) Mineral # (Auto) Eos # (Auto) Seg Neutrophils % Seg Neuts % (Manual) Baso # (Auto) Lymphocytes % (Manual) Monocytes % (Manual) Eosinophils % (Manual) Basophils % (Manual) Seg Neutrophils # Seg Neutrophils # Man Lymphocytes # (Manual) Monocytes # (Manual) Eosinophils # (Manual) Nucleated RBC % Basophils # (Manual) PT INR APTT Heparin Anti-Xa Level ABG pH POC ABG pO2 ABG pO2 ABG HCO3 ABG O2 Saturation ABG Base Excess POC ABG pCO2 ABG Hemoglobin ABG Oxyhemoglobin ABG Sodium ABG Chloride ABG Glucose Oxyhemoglobin Sodium Potassium Chloride Carbon Dioxide BUN Creatinine Glucose POC Glucose 118 H 142 H 146 H Lactic Acid Calcium Phosphorus Magnesium AST ALT Lactate Dehydrogenase Total Bilirubin Direct Bilirubin CK-MB (CK-2) C-Reactive Protein NT-Pro-B Natriuret Pep Total Protein Albumin Arterial Blood Glucose Urine WBC (Auto) Urine Creatinine 03/13/20 03/13/20 03/14/20 17:25 23:27 05:04 WBC RBC Hgb Hct MCHC RDW MCV MCH Lymph % (Auto) Mineral % (Auto) Mineral # Eos # Lymph # (Auto) Mineral # (Auto) Eos # (Auto) Seg Neutrophils % Seg Neuts % (Manual) Baso # (Auto) Lymphocytes % (Manual) Monocytes % (Manual) Eosinophils % (Manual) Basophils % (Manual) Seg Neutrophils # Seg Neutrophils # Man Lymphocytes # (Manual) Monocytes # (Manual) Eosinophils # (Manual) Nucleated RBC % Basophils # (Manual) PT INR APTT Heparin Anti-Xa Level ABG pH POC ABG pO2 ABG pO2 ABG HCO3 ABG O2 Saturation ABG Base Excess POC ABG pCO2 ABG Hemoglobin ABG Oxyhemoglobin ABG Sodium ABG Chloride ABG Glucose Oxyhemoglobin Sodium Potassium Chloride Carbon Dioxide BUN Creatinine Glucose POC Glucose 138 H 160 H 159 H Lactic Acid Calcium Phosphorus Magnesium AST ALT Lactate Dehydrogenase Total Bilirubin Direct Bilirubin CK-MB (CK-2) C-Reactive Protein NT-Pro-B Natriuret Pep Total Protein Albumin Arterial Blood Glucose Urine WBC (Auto) Urine Creatinine 03/14/20 03/14/20 03/15/20 11:19 16:18 00:18 WBC RBC Hgb Hct MCHC RDW MCV MCH Lymph % (Auto) Mineral % (Auto) Mineral # Eos # Lymph # (Auto) Mineral # (Auto) Eos # (Auto) Seg Neutrophils % Seg Neuts % (Manual) Baso # (Auto) Lymphocytes % (Manual) Monocytes % (Manual) Eosinophils % (Manual) Basophils % (Manual) Seg Neutrophils # Seg Neutrophils # Man Lymphocytes # (Manual) Monocytes # (Manual) Eosinophils # (Manual) Nucleated RBC % Basophils # (Manual) PT INR APTT Heparin Anti-Xa Level ABG pH POC ABG pO2 ABG pO2 ABG HCO3 ABG O2 Saturation ABG Base Excess POC ABG pCO2 ABG Hemoglobin ABG Oxyhemoglobin ABG Sodium ABG Chloride ABG Glucose Oxyhemoglobin Sodium Potassium Chloride Carbon Dioxide BUN Creatinine Glucose POC Glucose 130 H 170 H 125 H Lactic Acid Calcium Phosphorus Magnesium AST ALT Lactate Dehydrogenase Total Bilirubin Direct Bilirubin CK-MB (CK-2) C-Reactive Protein NT-Pro-B Natriuret Pep Total Protein Albumin Arterial Blood Glucose Urine WBC (Auto) Urine Creatinine 03/15/20 03/15/20 03/15/20 04:05 04:05 05:36 WBC RBC Hgb 10.0 L Hct 31.6 L MCHC RDW 22.4 H MCV 77 L MCH 24 L Lymph % (Auto) 36.2 H Mineral % (Auto) 9.4 H Mineral # Eos # Lymph # (Auto) Mineral # (Auto) Eos # (Auto) Seg Neutrophils % Seg Neuts % (Manual) Baso # (Auto) Lymphocytes % (Manual) Monocytes % (Manual) Eosinophils % (Manual) Basophils % (Manual) Seg Neutrophils # Seg Neutrophils # Man Lymphocytes # (Manual) Monocytes # (Manual) Eosinophils # (Manual) Nucleated RBC % Basophils # (Manual) PT INR APTT Heparin Anti-Xa Level ABG pH POC ABG pO2 ABG pO2 ABG HCO3 ABG O2 Saturation ABG Base Excess POC ABG pCO2 ABG Hemoglobin ABG Oxyhemoglobin ABG Sodium ABG Chloride ABG Glucose Oxyhemoglobin Sodium Potassium Chloride Carbon Dioxide 32 H BUN Creatinine 0.5 L Glucose 141 H POC Glucose 130 H Lactic Acid Calcium Phosphorus Magnesium AST ALT Lactate Dehydrogenase Total Bilirubin Direct Bilirubin CK-MB (CK-2) C-Reactive Protein NT-Pro-B Natriuret Pep Total Protein Albumin Arterial Blood Glucose Urine WBC (Auto) Urine Creatinine 03/15/20 03/15/20 03/15/20 11:41 17:38 23:16 WBC RBC Hgb Hct MCHC RDW MCV MCH Lymph % (Auto) Mineral % (Auto) Mineral # Eos # Lymph # (Auto) Mineral # (Auto) Eos # (Auto) Seg Neutrophils % Seg Neuts % (Manual) Baso # (Auto) Lymphocytes % (Manual) Monocytes % (Manual) Eosinophils % (Manual) Basophils % (Manual) Seg Neutrophils # Seg Neutrophils # Man Lymphocytes # (Manual) Monocytes # (Manual) Eosinophils # (Manual) Nucleated RBC % Basophils # (Manual) PT INR APTT Heparin Anti-Xa Level ABG pH POC ABG pO2 ABG pO2 ABG HCO3 ABG O2 Saturation ABG Base Excess POC ABG pCO2 ABG Hemoglobin ABG Oxyhemoglobin ABG Sodium ABG Chloride ABG Glucose Oxyhemoglobin Sodium Potassium Chloride Carbon Dioxide BUN Creatinine Glucose POC Glucose 114 H 144 H 116 H Lactic Acid Calcium Phosphorus Magnesium AST ALT Lactate Dehydrogenase Total Bilirubin Direct Bilirubin CK-MB (CK-2) C-Reactive Protein NT-Pro-B Natriuret Pep Total Protein Albumin Arterial Blood Glucose Urine WBC (Auto) Urine Creatinine 03/16/20 03/16/20 03/16/20 05:39 13:16 18:29 WBC RBC Hgb Hct MCHC RDW MCV MCH Lymph % (Auto) Mineral % (Auto) Mineral # Eos # Lymph # (Auto) Mineral # (Auto) Eos # (Auto) Seg Neutrophils % Seg Neuts % (Manual) Baso # (Auto) Lymphocytes % (Manual) Monocytes % (Manual) Eosinophils % (Manual) Basophils % (Manual) Seg Neutrophils # Seg Neutrophils # Man Lymphocytes # (Manual) Monocytes # (Manual) Eosinophils # (Manual) Nucleated RBC % Basophils # (Manual) PT INR APTT Heparin Anti-Xa Level ABG pH POC ABG pO2 ABG pO2 ABG HCO3 ABG O2 Saturation ABG Base Excess POC ABG pCO2 ABG Hemoglobin ABG Oxyhemoglobin ABG Sodium ABG Chloride ABG Glucose Oxyhemoglobin Sodium Potassium Chloride Carbon Dioxide BUN Creatinine Glucose POC Glucose 125 H 153 H 135 H Lactic Acid Calcium Phosphorus Magnesium AST ALT Lactate Dehydrogenase Total Bilirubin Direct Bilirubin CK-MB (CK-2) C-Reactive Protein NT-Pro-B Natriuret Pep Total Protein Albumin Arterial Blood Glucose Urine WBC (Auto) Urine Creatinine 03/16/20 03/17/20 03/17/20 23:32 05:50 11:38 WBC RBC Hgb Hct MCHC RDW MCV MCH Lymph % (Auto) Mineral % (Auto) Mineral # Eos # Lymph # (Auto) Mineral # (Auto) Eos # (Auto) Seg Neutrophils % Seg Neuts % (Manual) Baso # (Auto) Lymphocytes % (Manual) Monocytes % (Manual) Eosinophils % (Manual) Basophils % (Manual) Seg Neutrophils # Seg Neutrophils # Man Lymphocytes # (Manual) Monocytes # (Manual) Eosinophils # (Manual) Nucleated RBC % Basophils # (Manual) PT INR APTT Heparin Anti-Xa Level ABG pH POC ABG pO2 ABG pO2 ABG HCO3 ABG O2 Saturation ABG Base Excess POC ABG pCO2 ABG Hemoglobin ABG Oxyhemoglobin ABG Sodium ABG Chloride ABG Glucose Oxyhemoglobin Sodium Potassium Chloride Carbon Dioxide BUN Creatinine Glucose POC Glucose 137 H 160 H 134 H Lactic Acid Calcium Phosphorus Magnesium AST ALT Lactate Dehydrogenase Total Bilirubin Direct Bilirubin CK-MB (CK-2) C-Reactive Protein NT-Pro-B Natriuret Pep Total Protein Albumin Arterial Blood Glucose Urine WBC (Auto) Urine Creatinine 03/17/20 03/17/20 03/18/20 16:59 23:29 05:39 WBC RBC Hgb Hct MCHC RDW MCV MCH Lymph % (Auto) Mineral % (Auto) Mineral # Eos # Lymph # (Auto) Mineral # (Auto) Eos # (Auto) Seg Neutrophils % Seg Neuts % (Manual) Baso # (Auto) Lymphocytes % (Manual) Monocytes % (Manual) Eosinophils % (Manual) Basophils % (Manual) Seg Neutrophils # Seg Neutrophils # Man Lymphocytes # (Manual) Monocytes # (Manual) Eosinophils # (Manual) Nucleated RBC % Basophils # (Manual) PT INR APTT Heparin Anti-Xa Level ABG pH POC ABG pO2 ABG pO2 ABG HCO3 ABG O2 Saturation ABG Base Excess POC ABG pCO2 ABG Hemoglobin ABG Oxyhemoglobin ABG Sodium ABG Chloride ABG Glucose Oxyhemoglobin Sodium Potassium Chloride Carbon Dioxide BUN Creatinine Glucose POC Glucose 120 H 141 H 181 H Lactic Acid Calcium Phosphorus Magnesium AST ALT Lactate Dehydrogenase Total Bilirubin Direct Bilirubin CK-MB (CK-2) C-Reactive Protein NT-Pro-B Natriuret Pep Total Protein Albumin Arterial Blood Glucose Urine WBC (Auto) Urine Creatinine 03/18/20 03/18/20 03/18/20 11:18 15:34 17:42 WBC RBC Hgb Hct MCHC RDW MCV MCH Lymph % (Auto) Mineral % (Auto) Mineral # Eos # Lymph # (Auto) Mineral # (Auto) Eos # (Auto) Seg Neutrophils % Seg Neuts % (Manual) Baso # (Auto) Lymphocytes % (Manual) Monocytes % (Manual) Eosinophils % (Manual) Basophils % (Manual) Seg Neutrophils # Seg Neutrophils # Man Lymphocytes # (Manual) Monocytes # (Manual) Eosinophils # (Manual) Nucleated RBC % Basophils # (Manual) PT INR APTT Heparin Anti-Xa Level ABG pH POC ABG pO2 ABG pO2 ABG HCO3 ABG O2 Saturation ABG Base Excess POC ABG pCO2 ABG Hemoglobin ABG Oxyhemoglobin ABG Sodium ABG Chloride ABG Glucose Oxyhemoglobin Sodium 132 L Potassium 5.4 H D Chloride 96.8 L Carbon Dioxide BUN 24 H Creatinine 0.6 L Glucose 164 H POC Glucose 142 H 118 H Lactic Acid Calcium Phosphorus Magnesium AST ALT Lactate Dehydrogenase Total Bilirubin Direct Bilirubin CK-MB (CK-2) C-Reactive Protein NT-Pro-B Natriuret Pep Total Protein 6.2 L Albumin 2.8 L Arterial Blood Glucose Urine WBC (Auto) Urine Creatinine 03/18/20 03/19/20 03/19/20 23:57 05:40 07:50 WBC RBC Hgb Hct MCHC RDW MCV MCH Lymph % (Auto) Mineral % (Auto) Mineral # Eos # Lymph # (Auto) Mineral # (Auto) Eos # (Auto) Seg Neutrophils % Seg Neuts % (Manual) Baso # (Auto) Lymphocytes % (Manual) Monocytes % (Manual) Eosinophils % (Manual) Basophils % (Manual) Seg Neutrophils # Seg Neutrophils # Man Lymphocytes # (Manual) Monocytes # (Manual) Eosinophils # (Manual) Nucleated RBC % Basophils # (Manual) PT INR APTT Heparin Anti-Xa Level ABG pH POC ABG pO2 ABG pO2 ABG HCO3 ABG O2 Saturation ABG Base Excess POC ABG pCO2 ABG Hemoglobin ABG Oxyhemoglobin ABG Sodium ABG Chloride ABG Glucose Oxyhemoglobin Sodium 136 L Potassium Chloride 97.3 L Carbon Dioxide 31 H BUN 22 H Creatinine 0.5 L Glucose 160 H POC Glucose 127 H 136 H Lactic Acid Calcium Phosphorus Magnesium AST ALT Lactate Dehydrogenase Total Bilirubin Direct Bilirubin CK-MB (CK-2) C-Reactive Protein NT-Pro-B Natriuret Pep Total Protein Albumin Arterial Blood Glucose Urine WBC (Auto) Urine Creatinine 03/19/20 03/19/20 03/20/20 12:21 17:27 00:31 WBC RBC Hgb Hct MCHC RDW MCV MCH Lymph % (Auto) Mineral % (Auto) Mineral # Eos # Lymph # (Auto) Mineral # (Auto) Eos # (Auto) Seg Neutrophils % Seg Neuts % (Manual) Baso # (Auto) Lymphocytes % (Manual) Monocytes % (Manual) Eosinophils % (Manual) Basophils % (Manual) Seg Neutrophils # Seg Neutrophils # Man Lymphocytes # (Manual) Monocytes # (Manual) Eosinophils # (Manual) Nucleated RBC % Basophils # (Manual) PT INR APTT Heparin Anti-Xa Level ABG pH POC ABG pO2 ABG pO2 ABG HCO3 ABG O2 Saturation ABG Base Excess POC ABG pCO2 ABG Hemoglobin ABG Oxyhemoglobin ABG Sodium ABG Chloride ABG Glucose Oxyhemoglobin Sodium Potassium Chloride Carbon Dioxide BUN Creatinine Glucose POC Glucose 147 H 152 H 132 H Lactic Acid Calcium Phosphorus Magnesium AST ALT Lactate Dehydrogenase Total Bilirubin Direct Bilirubin CK-MB (CK-2) C-Reactive Protein NT-Pro-B Natriuret Pep Total Protein Albumin Arterial Blood Glucose Urine WBC (Auto) Urine Creatinine 03/20/20 03/20/20 03/20/20 05:59 11:45 17:24 WBC RBC Hgb Hct MCHC RDW MCV MCH Lymph % (Auto) Mineral % (Auto) Mineral # Eos # Lymph # (Auto) Mineral # (Auto) Eos # (Auto) Seg Neutrophils % Seg Neuts % (Manual) Baso # (Auto) Lymphocytes % (Manual) Monocytes % (Manual) Eosinophils % (Manual) Basophils % (Manual) Seg Neutrophils # Seg Neutrophils # Man Lymphocytes # (Manual) Monocytes # (Manual) Eosinophils # (Manual) Nucleated RBC % Basophils # (Manual) PT INR APTT Heparin Anti-Xa Level ABG pH POC ABG pO2 ABG pO2 ABG HCO3 ABG O2 Saturation ABG Base Excess POC ABG pCO2 ABG Hemoglobin ABG Oxyhemoglobin ABG Sodium ABG Chloride ABG Glucose Oxyhemoglobin Sodium Potassium Chloride Carbon Dioxide BUN Creatinine Glucose POC Glucose 146 H 142 H 107 H Lactic Acid Calcium Phosphorus Magnesium AST ALT Lactate Dehydrogenase Total Bilirubin Direct Bilirubin CK-MB (CK-2) C-Reactive Protein NT-Pro-B Natriuret Pep Total Protein Albumin Arterial Blood Glucose Urine WBC (Auto) Urine Creatinine Allied health notes reviewed: nursing
[2020-03-20] MEDS: POLYETHYLENE GLYCOL 3350 17 GM POWDER PO SCH (21:27)
[2020-03-20] MEDS: TAMSULOSIN 0.4 MG CAP PO SCH (21:29)
[2020-03-21] MEDS: INSULIN REGULAR, HUMAN 100 UNIT/ML 3ML VIAL SUB-Q SCH ×4 (06:54→18:56)
[2020-03-21] MEDS: GLYCOPYRROLATE 2 MG TAB PO SCH ×3 (07:25→21:47)
[2020-03-21] MEDS: MIDODRINE 5 MG TAB PO SCH ×3 (07:25→15:30)
[2020-03-21] MEDS: QUEtiapine 100 MG TAB PO SCH ×2 (09:09→21:47)
[2020-03-21] MEDS: CLOPIDOGREL 75 MG TAB PO SCH (09:10)
[2020-03-21] MEDS: DOCUSATE SODIUM 100 MG/10 ML ORAL LIQD FEEDTUBE SCH ×2 (09:10→21:47)
[2020-03-21] MEDS: LANSOPRAZOLE 30 MG SOLUTAB FEEDTUBE SCH (09:10)
[2020-03-21] MEDS: APIXABAN 5 MG TAB PO SCH ×2 (09:11→21:47)
[2020-03-21] MEDS: METOPROLOL TARTRATE 25 MG TAB FEEDTUBE SCH ×2 (09:12→21:47)
--- NOTE | 2020-03-21 09:38 | Progress Note ---
Assessment and Plan Assessment and plan: --Ischemic cardiomyopathy Cardiology is following, status post cardiac catheterization on 01/22/2020; Co ronary artery disease status post PCI and stent to the LAD Continue current cardiac medications --Acute on chronic hypoxemic respiratory failure; Patient has tracheostomy on vent Continue nebulizers, , trach care Wean off ventilator as tolerated Pulmonary critical following --Acute exacerbation of COPD; Patient is currently on ventilatory support Continue nebulizers --Left lower lobe PE; Continue Eliquis, ventilatory support --Acute right lower extremity DVT; Patient is on Eliquis --Bilateral multifocal pneumonia/community-acquired Completed antibiotics, improved --Severe sepsis/bilateral pneumonia: Completed antibiotics COVID-19 test; 11/24/2019; negative 11/26/2019; negative 12/29/2019: Negative --Paroxysmal atrial fibrillation; Now rate controlled, Stable on amiodarone and Eliquis --Acute on chronic combined systolic and diastolic congestive heart failure Ischemic cardiomyopathy left ventricular ejection fraction 40 to 45% --H/o CAD [[facility] 12/2018 in-stent restenosis] Patient is stable on current cardiac medications --Hypertensive emergency; present on admission Reasonable blood pressures, continue current antihypertensives As needed medications --History of alcohol abuse/alcohol withdrawal; Was on CIWA protocol, now stable --Oropharyngeal dysphagia; status post PEG placement Continue PEG feeds per protocol --History of partial small bowel obstruction; resolved Surgery evaluated. --Obesity; BMI 34.7 Patient needs weight reduction when medically stable --Severe protein calorie malnutrition/hypoalbuminemia Nutrition supplements, dietitian following, PEG feeds --DVT prophylaxis;Eliquis --Full CODE STATUS 01/05; Pt stable. NGT output 650cc over 24 hours, bilious. No f/c, WBC within normal limits. cont NG suction and cont to hold TF 01/06: Abs series - mild improvement in small bowel distension in mid abdomen, normal gas/stool pattern in colon. NGT in duodenum. Continue to hold tube feeding, maintain NG tube with low intermittent suction. Patient's was updated by phone. Continue to provide supportive care and monitor clinically. 01/07: +BMs today and NGT/PEG output appears more gastric today. Plan to clamp NGT, if tolerates start TF from tomorrow. cont supportive care. 01/08; Gastric output decreased over last 24 hours. NGT has been clamped x 24 hours. plan to dc NGT and to start TTF via PEG - vital HF @10cc/hr 01/09: clinically stable, tolerating TF. monitor BMP, wean off from vent as tolerated clinically stable, on TF. wean off vent as tolerated 01/11: wean off from vent, cont to monitor, on TF 01/12: wean off from vent, cont to monitor, on TF. need placement - unfunded 01/13; remains on ventilatory support, unable to wean, DC planning possible LTAC, unfunded 01/14; patient of ventilatory support, T-piece tracheostomy on oxygen, LTAC placement per case management 01/16; tracheostomy, patient on full ventilatory support, wean off vent support as tolerated, pending LTAC placement, social financial issues 01/17; awaiting LTAC placement, insurance and financial issues 01/18; patient tracheostomy remains on ventilatory support 01/19; wean off ventilator as tolerated 01/20; remains on ventilatory support, patient complains of intermittent chest pain, cardiology recommend left heart catheterization tomorrow 01/22/2020. Patient for left heart catheterization per cardiology. Patient remains on AC mode ventilation rate 12, tidal volume 450, FiO2 30% and PEEP of 6. Continue tracheostomy care, airway management and secretion control. 01/23/2020. Cardiac catheterization completed yesterday revealed widely patent previous LAD stent with mild nonobstructive atherosclerosis of the right mid coronary artery and rest of the coronary system was without significant atherosclerosis. The left ventricle ejection fraction was mildly impaired at 40 to 45%. There was some hypokinesis of the basal inferior wall suggestive of previous or recent infarct. Continue GDMT for coronary artery disease including beta blockers, topical nitrates, statin and Plavix. Continue Eliquis for paroxysmal atrial fibrillation and PE. Continue diuresis with Lasix and follow electrolytes closely. Continue Robinul and scopolamine for secretion control and daily SBT per pulmonary. Also, continue bronchodilators and routine trach care/airway management. T-piece trials per pulmonary as tolerated. 01/24/2020. Recent cardiac catheterization has documented widely patent left anterior descending artery stent with minimal nonobstructive diffuse coronary artery disease in the rest of the coronary arteries. Evidence of ischemic cardiomyopathy with inferior wall hypokinesis. Continue with guideline directed medical therapy. Continue Robinul and scopolamine for secretion control and daily SBT per pulmonary. Continue bronchodilators and routine trach care/airway management. T-piece trials per pulmonary as tolerated. 01/25/2020. Continue with guideline directed medical therapy for systolic heart failure. Cardiac catheterization revealed evidence of ischemic cardiomyopathy with inferior wall hypokinesis (EF 40-45%). Patient currently on T-piece with oxygen 10 L/min FiO2 40%. Continue Robinul and scopolamine for secretion control. Continue bronchodilators and routine trach care/airway management. 02/03: Mental status more improved, agree with Reglan will change to IV scheduled for two days, no new vomiting. Pseudomonas A in Sputum. 02/04: Clinical improving, amiodarone discontinued due to LFTs, continue Metoprolol.d/w GI, started on Golytely to clear impaction. Started on dialy Miralax. 02/05: Continue supportive care. Noted bowel movement, continue bowel regimen 02/06: Cardiology input noted beta-hebert increased for better suppression of atrial fibrillation. Continue to monitor, no other evidence of nausea vomiting noted. Discussed with respiratory therapist will be continued on weaning protocol with pressure support today. 02/07: Patient successfully weaned off the ventilator, No new complaints, c ontinue monitoring, BM noted, Discussed with pulmonary, 02/08; tracheostomy on T-piece, patient is more alert and awake today 02/09; clinically no change, tracheostomy on vent 02/10; tracheostomy on vent, full CODE STATUS, poor prognosis, 02/11; clinically no change, remains on ventilatory support, full CODE STATUS, discussed with spouse Ms. Paulette Araiza extensively today 02/12. Patient resting comfortably no change on vent with tracheostomy. Still unable to wean. Some increased crackles today. 02/13: Still unable to wean from the vent. Overall prognosis remains extremely poor. 02/14; remains critically ill, tracheostomy on vent, unable to wean, poor prognosis, full CODE STATUS 02/15; patient is more alert and awake today, chronic tracheostomy on T-piece, continue current management DC planning per case management. Disposition very difficult due to lack of resources and insurance 02/17/2020. Patient remains on mechanical ventilation and tolerating PSV trials. Patient currently with PSV 10/6 at FiO2 of 30%. 02/18/2020. Patient currently on PSV 10/6 with FiO2 of 40%. 40% T-piece trial was attempted but patient unable to tolerate due to saturations dropping into the 80s and heart rate in the 140s. Therefore, patient placed back on PSV. Continue anticoagulation with Eliquis. Continue secretion control with Robinul and scopolamine. Continue rate control with metoprolol and digoxin. 02/19/2020. Patient currently on PSV 10/6 with FiO2 of 30%. T-piece trial attempted yesterday but patient did not tolerate. Continue T-piece trials as tolerated. Continue anticoagulation with Eliquis. Continue secretion control with Robinul and scopolamine. Continue rate control with metoprolol and digoxin. Continue to follow with case management with regards to discharge pl anning. 02/20/2020. Patient continues to tolerate PSV 10/6. Continue rate control with metoprolol and digoxin. Amiodarone discontinued due to elevated liver transaminases. Eliquis for anticoagulation acute PE/DVT. 02/21/2020. Patient continues to tolerate PSV 10/6 at FiO2 of 30%. Continue ra te control with metoprolol and digoxin. Amiodarone discontinued due to elevated liver transaminases. Eliquis for anticoagulation acute PE/DVT. 02/22/2020. Patient continues to tolerate PSV 10/6 at FiO2 of 30%. Continue rate control with metoprolol and digoxin. Amiodarone discontinued due to el evated liver transaminases. Eliquis for anticoagulation acute PE/DVT. 02/22. Awake and alert on vent. Vitals stable. 02/23. Awake and alert on vent. Requests for ice. Vitals stable 02/24. Trach to vent. Continue rate control with metoprolol and digoxin. Amiodarone discontinued due to elevated liver transaminases. Eliquis for anticoagulation of acute PE/DVT. Transferred to [facility] 02/25. Seen in [facility]. Requests for ice. RN to provide a cube of ice. Vitals stable. 02/26. No change in medical condition. Slightly tachy this AM. Will monitor. 02/27. Cardiology started him on a beta hebert. Still on vent 02/28. Discharge planning as per dietetic intern. Still on vent. Tachycardia noted. 03/01/2020; patient is tachycardic, still on the vent. Discharge management as per dietetic intern. 03/02/2020; patient is on a vent and trach. Discharge is per dietetic intern. 03/03/2012; patient is on vent and trach patient is alert and oriented. 03/04/2020; patient is on vent and trach, patient is alert. 03/05/2020; patient is on vent and trach, patient is alert. 03/06/2020 tracheostomy on vent , patient is alert, possible LTAC placement 03/08/2020 remains on ventilatory support; wean off the vent, pending LTAC placement 03/09/2020; clinically no change, tracheostomy on ventilatory support, unable to wean, awaiting LTAC placement, social issues 03/10/2020; clinically no change; patient alert and awake; 03/11/2020; patient is more alert and awake asking for some water, remains on ventilatory support, awaiting LTAC placement 03/12/2020; clinically no change, tracheostomy on ventilatory support, unable to wean, awaiting LTAC placement 03/13 patient on vent via tracheostomy, alert and oriented and offers no complaints except some neck pain. Denies any chest pain or shortness of breath or palpitations. All interdisciplinary notes reviewed 03/14/2020. Patient currently on AC mode ventilation rate of 12 tidal volume 450 FiO2 30% and a PEEP of 6. Patient is s/p tracheostomy on ventilatory support awaiting LTAC placement. 03/15/2020. Patient remains on AC mode ventilation rate 12, tidal volume 450, FiO2 30% and PEEP of 6. Patient failed CPAP trials. Unfortunately, Patient is uninsured and his only d/c option is to return home with family. 03/16/20. Patient remains on AC mode ventilation rate 12, tidal volume 450, FiO2 30% and PEEP of 6. Cont. PSV as figueroa. Patient is uninsured and his only d/c option is to return home with family. 03/17/2020. Patient remains on AC mode ventilation rate 12, tidal volume 450, FiO2 30% and PEEP of 6. Cont. PSV as figueroa. Patient is uninsured and his only d/c option is to return home with family. 03/18/2020. Patient remains on same vent settings the past few days. Continue pressure support ventilation trials as tolerated. Supportive care 03/19/2020. Continue current vent per pulmonary recommendations. Pressure support ventilation trials as tolerated. Continue trach care, secretion control and airway management. Mobility protocols for pressure ulcer prophylaxis. 03/20/2020. Rate better controlled on digoxin and metoprolol per cardiology. Patient currently off amiodarone due to elevated liver enzymes. Continue anticoagulation with Eliquis. IV metoprolol as needed. No statins for now secondary to elevated liver enzymes. Patient remains on AC mode ventilation rate 12, tidal volume 450, FiO2 30% and PEEP of 6. Cont. PSV as figueroa. Continue trach care, secretion control and airway management. Mobility protocols for pressure ulcer prophylaxis. Patient is uninsured and his only d/c option is to return home with family. 03/13/2020. Patient still with elevated heart rate but better on digoxin and metoprolol per cardiology. Patient currently off amiodarone due to elevated liver enzymes. Continue anticoagulation with Eliquis. IV metoprolol as needed. No statins for now secondary to elevated liver enzymes. Patient remains on AC mode mechanical ventilation with rate 12, tidal volume 450, FiO2 30% and PEEP of 6. Continue PSV trials as tolerated. Continue trach care, secretion control and airway management. Mobility protocols for pressure ulcer prophylaxis. Patient is uninsured and his only d/c option is to return home with family. The high probability of a clinically significant, sudden or life threatening deterioration of the [Respiratory, cardiovascular & neurological] system(s) required my full and direct attention, intervention and personal management. The aggregate critical care time was [34] minutes without overlap. Time includes spent on [x] Data Review and interpretation [x] Patient assessment and monitoring of vital signs [x] Documentation [x] Medication orders and management History Interval history: Patient is a 64-year-old male with known history of hypertension, COPD, history of coronary artery disease, CHF with ejection fraction of 20 to 25% 2019 was admitted through emergency room with worsening shortness of breath Patient was found to be hypoxic and in respiratory distress. Patient was placed on CPAP in route to the hospital. Patient remained hypoxic on CPAP BiPAP ,subsequently was intubated. Patient also had bilateral multifocal pneumonia managed appropriately with antibiotics sputum cultures positive for Pseudomonas, ID treated with cefepime and Vanco. His hospital course became complicated with acute PE, DVT, paroxysmal atrial fib - placed on chronic anticoagulation. Patient was difficult to wean off, status post trach and PEG, remains on mechanical ventilation with trach tube. He then developed partial small bowel obstruction evaluated by general surgeon symptom improved with medical Mx, patient was briefly weaned off ventilatory support however, was in respiratory failure requiring full ventilatory support. Cardiac catheterization on 01/22/2020. Patient remains on mechanical ventilatory support. Patients still with elevated heart rate of Afib with RVR continue amiodarone and metoprolol. LVEF 40 to 45% on Eliquis FOR THE Acute PE/DVT. Partial SBO vs ileus- KUB is negative. Brief history; Patient is a 64-year-old male with known history of hypertension, COPD, history of coronary artery disease, CHF with ejection fraction of 20 to 25% 2019 was admitted through emergency room with worsening shortness of breath Patient was found to be hypoxic and in respiratory distress. Patient was placed on CPAP in route to the hospital. Patient remained hypoxic on CPAP BiPAP ,subsequently was intubated, vent dependent. Unable to wean subsequently had tracheostomy and PEG placement, patient also has acute PE DVT and paroxysmal atrial fibrillation on chronic anticoagulation. Patient is vent dependent, social issues, awaiting LTAC placement Hospitalist Physical - Constitutional Vitals: Temp Pulse Resp BP Pulse Ox 97.4 F L 112 H 17 96/75 99 03/21/20 08:00 03/21/20 09:12 03/21/20 09:00 03/21/20 09:12 03/21/20 09:00 General appearance: Present: no acute distress, well-nourished, other (Tracheostomy on vent) - EENT Eyes: Present: PERRL, EOM intact ENT: hearing intact, clear oral mucosa, dentition normal - Neck Neck: Present: supple, normal ROM - Respiratory Respiratory effort: normal Respiratory: bilateral: CTA - Cardiovascular Rhythm: regular Heart Sounds: Present: S1 & S2. Absent: gallop, rub - Extremities Extremities: no ischemia, No edema, Full ROM - Abdominal General gastrointestinal: soft, non-tender, non-distended, normal bowel sounds - Integumentary Integumentary: Present: clear, warm, dry - Neurologic Neurologic: CNII-XII intact, moves all extremities HEART Score - HEART Score Troponin: Troponin T < 0.010 ng/mL (0.00-0.029) 01/19/20 01:35 Results - Labs CBC & Chem 7: 03/15/20 04:05 03/19/20 07:50 Labs: Laboratory Last Values WBC 6.0 K/mm3 (4.5-11.0) 03/15/20 04:05 RBC 4.09 M/mm3 (3.65-5.03) 03/15/20 04:05 Hgb 10.0 gm/dl (11.8-15.2) L 03/15/20 04:05 Hct 31.6 % (35.5-45.6) L 03/15/20 04:05 MCV 77 fl (84-94) L 03/15/20 04:05 MCH 24 pg (28-32) L 03/15/20 04:05 MCHC 32 % (32-34) 03/15/20 04:05 RDW 22.4 % (13.2-15.2) H 03/15/20 04:05 Plt Count 205 K/mm3 (140-440) 03/15/20 04:05 Lymph % (Auto) 36.2 % (13.4-35.0) H 03/15/20 04:05 Rock % (Auto) 9.4 % (0.0-7.3) H 03/15/20 04:05 Eos % (Auto) 2.8 % (0.0-4.3) 03/15/20 04:05 Baso % (Auto) 0.6 % (0.0-1.8) 03/15/20 04:05 Lymph # (Auto) 2.2 K/mm3 (1.2-5.4) 03/15/20 04:05 Rock # (Auto) 0.6 K/mm3 (0.0-0.8) 03/15/20 04:05 Eos # (Auto) 0.2 K/mm3 (0.0-0.4) 03/15/20 04:05 Baso # (Auto) 0.0 K/mm3 (0.0-0.1) 03/15/20 04:05 Add Manual Diff Complete 02/15/20 06:59 Total Counted 100 02/15/20 06:59 Seg Neutrophils % 51.0 % (40.0-70.0) 03/15/20 04:05 Seg Neuts % (Manual) 58.0 % (40.0-70.0) 02/15/20 06:59 Band Neutrophils % 0 % 02/15/20 06:59 Lymphocytes % (Manual) 34.0 % (13.4-35.0) 02/15/20 06:59 Reactive Lymphs % (Man) 1.0 % 02/15/20 06:59 Monocytes % (Manual) 4.0 % (0.0-7.3) 02/15/20 06:59 Eosinophils % (Manual) 0 % (0.0-4.3) 02/15/20 06:59 Basophils % (Manual) 2.0 % (0.0-1.8) H 02/15/20 06:59 Metamyelocytes % 1.0 % 02/15/20 06:59 Myelocytes % 0 % 02/15/20 06:59 Promyelocytes % 0 % 02/15/20 06:59 Blast Cells % 0 % 02/15/20 06:59 Nucleated RBC % 1.0 % (0.0-0.9) H 02/15/20 06:59 Seg Neutrophils # 3.0 K/mm3 (1.8-7.7) 03/15/20 04:05 Seg Neutrophils # Man 5.9 K/mm3 (1.8-7.7) 02/15/20 06:59 Band Neutrophils # 0.0 K/mm3 02/15/20 06:59 Lymphocytes # (Manual) 3.5 K/mm3 (1.2-5.4) 02/15/20 06:59 Abs React Lymphs (Man) 0.1 K/mm3 02/15/20 06:59 Monocytes # (Manual) 0.4 K/mm3 (0.0-0.8) 02/15/20 06:59 Eosinophils # (Manual) 0.0 K/mm3 (0.0-0.4) 02/15/20 06:59 Basophils # (Manual) 0.2 K/mm3 (0.0-0.1) H 02/15/20 06:59 Metamyelocytes # 0.1 K/mm3 02/15/20 06:59 Myelocytes # 0.0 K/mm3 02/15/20 06:59 Promyelocytes # 0.0 K/mm3 02/15/20 06:59 Blast Cells # 0.0 K/mm3 02/15/20 06:59 WBC Morphology Not Reportable 02/15/20 06:59 Hypersegmented Neuts Not Reportable 02/15/20 06:59 Hyposegmented Neuts Not Reportable 02/15/20 06:59 Hypogranular Neuts Not Reportable 02/15/20 06:59 Smudge Cells Not Reportable 02/15/20 06:59 Toxic Granulation Not Reportable 02/15/20 06:59 Toxic Vacuolation Not Reportable 02/15/20 06:59 Dohle Bodies Not Reportable 02/15/20 06:59 Pelger-Huet Anomaly Not Reportable 02/15/20 06:59 Hector Rods Not Reportable 02/15/20 06:59 Platelet Estimate Consistent w auto 02/15/20 06:59 Clumped Platelets Not Reportable 02/15/20 06:59 Plt Clumps, EDTA Not Reportable 02/15/20 06:59 Large Platelets Not Reportable 02/15/20 06:59 Giant Platelets Not Reportable 02/15/20 06:59 Platelet Satelliting Not Reportable 02/15/20 06:59 Plt Morphology Comment Giant platelets 02/15/20 06:59 RBC Morphology Not Reportable 02/15/20 06:59 Dimorphic RBCs Not Reportable 02/15/20 06:59 Polychromasia Not Reportable 02/15/20 06:59 Hypochromasia 1+ 02/15/20 06:59 Poikilocytosis Few 02/15/20 06:59 Anisocytosis 1+ 02/15/20 06:59 Microcytosis Not Reportable 02/15/20 06:59 Macrocytosis Not Reportable 02/15/20 06:59 Spherocytes Not Reportable 02/15/20 06:59 Pappenheimer Bodies Not Reportable 02/15/20 06:59 Sickle Cells Not Reportable 02/15/20 06:59 Target Cells 1+ 02/15/20 06:59 Tear Drop Cells Few 02/15/20 06:59 Ovalocytes Not Reportable 02/15/20 06:59 Helmet Cells Not Reportable 02/15/20 06:59 Gottlieb-Four Points Bodies Not Reportable 02/15/20 06:59 Weston Rings Not Reportable 02/15/20 06:59 Oc Cells Not Reportable 02/15/20 06:59 Bite Cells Not Reportable 02/15/20 06:59 Crenated Cell Not Reportable 02/15/20 06:59 Elliptocytes Few 02/15/20 06:59 Acanthocytes (Spur) Not Reportable 02/15/20 06:59 Rouleaux Not Reportable 02/15/20 06:59 Hemoglobin C Crystals Not Reportable 02/15/20 06:59 Schistocytes Not Reportable 02/15/20 06:59 Malaria parasites Not Reportable 02/15/20 06:59 Clifford Bodies Not Reportable 02/15/20 06:59 Hem Pathologist Commnt No 02/15/20 06:59 PT 27.0 Sec. (12.2-14.9) H 02/07/20 15:03 INR 2.46 (0.87-1.13) H 02/07/20 15:03 APTT 31.5 Sec. (24.2-36.6) 01/22/20 09:58 Heparin Anti-Xa Level 1.34 U.I./ml (0.3-0.7) H 01/22/20 04:45 ABG pH 7.454 (7.320-7.450) H 03/12/20 04:45 POC ABG pCO2 45.6 mmHg (32.0-48.0) 03/12/20 04:45 ABG pCO2 47.8 mm Hg 02/20/20 06:45 POC ABG pO2 69.2 mmHg (83-108) L 03/12/20 04:45 ABG pO2 88.7 mm Hg (80.0-90.0) 02/20/20 06:45 POC ABG HCO3 31.3 03/12/20 04:45 ABG HCO3 33.3 mmol/L (20.0-26.0) H 02/20/20 06:45 ABG O2 Saturation 97.2 % (95.0-99.0) 02/20/20 06:45 ABG O2 Content 13.3 (0.0-44) 02/20/20 06:45 POC ABG Base Excess 6.5 03/12/20 04:45 ABG Base Excess 8.4 mmol/L (-2.0-3.0) H 02/20/20 06:45 ABG Hemoglobin 11.2 (12.0-17.5) L 03/12/20 04:45 ABG Oxyhemoglobin 84 (94-98) L 12/22/19 03:22 ABG Carboxyhemoglobin 2.9 % (0.0-5.0) 02/20/20 06:45 ABG Methemoglobin 0.4 % (0.0-1.5) 02/20/20 06:45 ABG Sodium 134.7 mmol/L (136.0-145.0) L 03/12/20 04:45 ABG Potassium 3.9 mmol/L (3.40-4.50) 03/12/20 04:45 ABG Chloride 98.0 mmol/L (98-107) 03/12/20 04:45 ABG Glucose 151 mg/dL (65-95) H 03/12/20 04:45 Oxyhemoglobin 94.1 % (95.0-99.0) L 02/20/20 06:45 Carboxyhemoglobin 0.7 (0.5-1.5) 12/22/19 03:22 FiO2 30 03/12/20 04:45 Sodium 136 mmol/L (137-145) L 03/19/20 07:50 Potassium 3.9 mmol/L (3.6-5.0) D 03/19/20 07:50 Chloride 97.3 mmol/L (98-107) L 03/19/20 07:50 Carbon Dioxide 31 mmol/L (22-30) H 03/19/20 07:50 Anion Gap 12 mmol/L 03/19/20 07:50 BUN 22 mg/dL (9-20) H 03/19/20 07:50 Creatinine 0.5 mg/dL (0.8-1.3) L 03/19/20 07:50 Estimated GFR > 60 ml/min 03/19/20 07:50 BUN/Creatinine Ratio 44 % 03/19/20 07:50 Glucose 160 mg/dL (75-100) H 03/19/20 07:50 POC Glucose 133 mg/dL (70-105) H 03/21/20 05:38 Lactic Acid 1.60 mmol/L (0.7-2.0) 02/03/20 12:49 Ferritin 84.4 ng/mL (30.0-300.0) 11/24/19 04:53 Calcium 8.7 mg/dL (8.4-10.2) 03/19/20 07:50 Phosphorus 4.10 mg/dL (2.5-4.5) 01/31/20 19:24 Magnesium 2.40 mg/dL (1.7-2.3) H 02/10/20 07:40 Total Bilirubin 0.90 mg/dL (0.1-1.2) 03/18/20 15:34 Direct Bilirubin 0.9 mg/dL (0-0.2) H 02/08/20 19:00 Indirect Bilirubin 0.4 mg/dL 02/08/20 19:00 Total Creatine Kinase 141 units/L (55-170) 11/24/19 02:53 CK-MB (CK-2) 4.3 ng/mL (0.0-4.0) H 11/24/19 02:53 AST 23 units/L (5-40) 03/18/20 15:34 CK-MB (CK-2) Rel Index 3.0 (0-4) 11/24/19 02:53 ALT 22 units/L (7-56) 03/18/20 15:34 Alkaline Phosphatase 96 units/L (35-129) 03/18/20 15:34 C-Reactive Protein 8.50 mg/dL (0.00-1.30) H 12/01/19 12:16 Ammonia 35.0 umol/L (25-60) 02/03/20 12:49 Lactate Dehydrogenase 228 units/L (91-180) H 12/19/19 04:45 Troponin T < 0.010 ng/mL (0.00-0.029) 01/19/20 01:35 NT-Pro-B Natriuret Pep 3866 pg/mL (0-900) H 01/01/20 10:40 Total Protein 6.2 g/dL (6.3-8.2) L 03/18/20 15:34 Albumin 2.8 g/dL (3.9-5) L 03/18/20 15:34 Albumin/Globulin Ratio 0.8 % 03/18/20 15:34 Procalcitonin 0.44 ng/mL (<0.15) 02/03/20 12:49 Arterial Blood Glucose 151 mg/dL (65-95) H 03/12/20 04:45 Arterial Blood Ionized Calcium 4.8 mg/dL (4.6-5.3) 03/12/20 04:45 Urine Color Cecy (Yellow) 02/26/20 07:50 Urine Turbidity Clear (Clear) 02/26/20 07:50 Urine pH 5.0 (5.0-7.0) 02/26/20 07:50 Ur Specific [place] 1.025 (1.003-1.030) 02/26/20 07:50 Urine Protein 30 mg/dl mg/dL (Negative) 02/26/20 07:50 Urine Glucose (UA) Neg mg/dL (Negative) 02/26/20 07:50 Urine Ketones Neg mg/dL (Negative) 02/26/20 07:50 Urine Blood Sm (Negative) 02/26/20 07:50 Urine Nitrite Neg (Negative) 02/26/20 07:50 Urine Bilirubin Neg (Negative) 02/26/20 07:50 Urine Urobilinogen 4.0 mg/dL (<2.0) 02/26/20 07:50 Ur Leukocyte Esterase Lg (Negative) 02/26/20 07:50 Urine WBC (Auto) > 182.0 /HPF (0.0-6.0) H 02/26/20 07:50 Urine RBC (Auto) 84.0 /HPF (0.0-6.0) 02/26/20 07:50 U Epithel Cells (Auto) 2.0 /HPF (0-13.0) 12/31/19 18:04 Urine Bacteria (Auto) 4+ /HPF (Negative) 02/26/20 07:50 Urine WBC Clumps 2+ /HPF 02/26/20 07:50 Urine Mucus 1+ /HPF 02/26/20 07:50 Urine Creatinine 57.4 mg/dL (0.1-20.0) H 01/31/20 Unknown Urine Sodium 59 mmol/L 01/31/20 Unknown Vancomycin Trough 14.2 ug/mL (5.0-20.0) 12/13/19 15:01 Coronavirus (PCR) Negative (Negative) 12/29/19 10:07 Hepatitis A IgM Ab Non-reactive (NonReactive) 02/05/20 06:37 Hep Bs Antigen Non-reactive (Negative) 02/05/20 06:37 Hep B Core IgM Ab Non-reactive (NonReactive) 02/05/20 06:37 Hepatitis C Antibody Non-reactive (NonReactive) 02/05/20 06:37 Blood Type O POSITIVE 01/21/20 13:00 Antibody Screen Negative 01/21/20 13:00 - Diagnostic Impressions Diagnostic Impressions: Echocardiogram 11/29/19 07:37 Transthoracic Echocardiogram Indication: CHF BP: 116/72 HR: 33 Conclusions *The study is technically limited due to poor acoustic windows. *Global left ventricular systolic function is normal. *The estimated ejection fraction is 50-55%. *Mild concentric left ventricular hypertrophy is observed. *There is trace of mitral regurgitation. *There is mild tricuspid regurgitation. Findings Procedure Info: The study quality is poor. The study is technically limited due to poor acoustic windows. The study is technically limited due to patient body habitus. Left Ventricle: The left ventricular chamber size is normal. Mild concentric left ventricular hypertrophy is observed. Global left ventricular systolic function is normal. The estimated ejection fraction is 50-55%. Left Atrium: The left atrial chamber size is normal. Right Ventricle: The right ventricular cavity size is normal. Right Atrium: The right atrial cavity size is normal. Aortic Valve: The aortic valve leaflets are moderately thickened. There is trace of aortic regurgitation. There is no evidence of aortic stenosis. Mitral Valve: The mitral valve leaflets are mildly thickened. There is trace of mitral regurgitation. There is no evidence of mitral stenosis. Tricuspid Valve: There is mild tricuspid regurgitation. No pulmonary hypertension is noted. Pulmonic Valve: There is trace pulmonic regurgitation. Pericardium: There is no pericardial effusion. Aorta: There is no dilatation of the aortic root. Venous: The inferior vena cava appears normal in size. Contrast: Definity was used to optimize study. Intravenous contrast was used to enhance endocardial border definition. Measurements Chambers 2D Name Value Normal Range Ao root diameter (2D) 3.4 cm (2 - 3.7) Aortic Valve Name Value Normal Range AV Vmax 0.98 m/sec - AV VTI 16.76 cm - AV peak gradient 3.83 mmHg - AV mean gradient 2.57 mmHg - LVOT diameter 3.11 cm - LVOT Vmax 0.68 m/sec - LVOT VTI 11.52 cm - LVOT peak gradient 1.84 mmHg - LVOT mean gradient 1.27 mmHg - SV LVOT 87.31 ml - MALOU (continuity Vmax) 5.24 cm2 - MALOU (continuity VTI) 5.21 cm2 - Tricuspid Valve Name Value Normal Range IVC diameter 2.24 cm (1.2 - 2.3) Hoffman/IV: Voiding Method Indwelling Catheter IV Catheter Type [Left INT / Saline Lock Antecubital] IV Catheter Type [Right INT / Saline Lock Forearm] IV Catheter Type [Right Hand] Peripheral IV IV Catheter Type [Right Upper INT / Saline Lock arm] IV Catheter Type [Left Upper Mid-line arm] IV Catheter Type [Left Forearm Peripheral IV ] IV Catheter Type [Left Hand] Peripheral IV IV Catheter Type [Left Wrist] INT / Saline Lock IV Catheter Type [Right Peripheral IV Antecubital] Active Medications - Current Medications Current Medications: Generic Name Dose Route Start Last Admin Trade Name Freq PRN Reason Stop Dose Admin Acetaminophen 650 mg 03/12/20 04:29 03/19/20 02:31 Acetaminophen 325 Mg/10.15 Ml Oral Liqd Unit Dose FEEDTUBE 650 mg Q6H PRN Administration Pain, Mild (1-3) Lipase/Protease/Amylase 1 each 01/09/20 12:01 03/18/20 11:09 Lipase 10,500/Protease 25,000/Amylase 43,750 (Units) Dr Lauren FEEDTUBE 1 each PRN PRN Administration For Clogged Feeding Tube Apixaban 5 mg 01/22/20 22:00 03/21/20 09:11 Apixaban 5 Mg Tab PO 5 mg Q12HR CAR Administration Protocol Atorvastatin Calcium 40 mg 01/20/20 22:00 03/20/20 21:29 Atorvastatin 40 Mg Tab PO 40 mg QHS CAR Administration Clopidogrel Bisulfate 75 mg 01/21/20 06:00 03/21/20 09:10 Clopidogrel 75 Mg Tab PO 75 mg QDAY CAR Administration Dextrose 50 ml 01/31/20 18:51 02/05/20 00:56 D50w (25gm) Syringe IV 50 ml Q30MIN PRN Administration Hypoglycemia Protocol Digoxin 0.125 mg 02/25/20 17:00 03/20/20 16:16 Lanoxin PO 0.125 mg DAILY@1700 CAR Administration Docusate Sodium 100 mg 02/22/20 10:00 03/21/20 09:10 Colace FEEDTUBE 100 mg BID CAR Administration Glycopyrrolate 2 mg 02/24/20 21:00 03/21/20 07:25 Glycopyrrolate PO 2 mg TID CAR Administration Haloperidol Lactate 5 mg 02/10/20 14:20 03/19/20 23:26 Haloperidol Lactate 5 Mg/1 Ml Inj IV 5 mg Q6H PRN Administration Agitation Hydrophilic Ointment 1 applic 01/17/20 15:26 02/24/20 23:20 Lip Therapy Vaseline TP 1 applic DIRECT PRN Administration Dry Lips Insulin Human Regular 0 unit 02/01/20 18:00 03/21/20 06:54 Humulin R SUB-Q Not Given Q6H [facility] Protocol Lansoprazole 30 mg 02/05/20 16:00 03/21/20 09:10 Lansoprazole 30 Mg Solutab FEEDTUBE 30 mg QDAY CAR Administration Metoprolol Tartrate 5 mg 01/11/20 08:00 03/18/20 16:52 Metoprolol Tartrate 5 Mg/5 Ml Inj IV 5 mg Q6H PRN Administration SEE INSTRUCTIONS Metoprolol Tartrate 12.5 mg 02/28/20 12:00 03/21/20 09:12 Metoprolol FEEDTUBE Not Given BID [facility] Midodrine 15 mg 02/04/20 16:00 03/21/20 07:25 Midodrine 5 Mg Tab PO 15 mg TID@0800,1200,1600 [facility] Administration Morphine Sulfate 2 mg 01/06/20 15:41 03/19/20 13:20 Morphine 2 Mg/1 Ml Inj IV 2 mg Q4H PRN Administration Pain, Moderate (4-6) Multi-Ingred Cream/Lotion/Oil/Oint 1 applic 02/01/20 15:52 Artificial Tears Ophth Oint OU Q4HR PRN Dry Eye(s) Nitroglycerin 0.4 mg 01/19/20 21:09 01/20/20 03:03 Nitroglycerin 0.4 Mg Tab Subl SL 0.4 mg .Q5MIN PRN Administration Chest Pain Ondansetron HCl 4 mg 01/05/20 14:37 03/18/20 11:09 Ondansetron 4 Mg/2 Ml Inj IV 4 mg Q8H PRN Administration Nausea And Vomiting Polyethylene Glycol 17 gm 12/04/19 22:00 03/20/20 21:27 Miralax 3350 PO Not Given QHS [facility] Quetiapine Fumarate 300 mg 01/13/20 22:00 03/21/20 09:09 Quetiapine 100 Mg Tab PO 300 mg BID CAR Administration Simple Syrup 15 ml 01/09/20 12:01 Simple Syrup 15 Ml FEEDTUBE PRN PRN Hypoglycemia Simple Syrup 30 ml 01/09/20 12:01 Simple Syrup 15 Ml FEEDTUBE PRN PRN Hypoglycemia Sodium Bicarbonate 325 mg 01/09/20 12:01 03/07/20 12:56 Sodium Bicarbonate 325 Mg Tab FEEDTUBE 325 mg PRN PRN Administration For Clogged Feeding Tube Sodium Chloride 10 ml 11/24/19 10:00 03/21/20 09:12 Sodium Chloride 0.9% 10 Ml Flush Syringe IV 10 ml BID CAR Administration Tamsulosin HCl 0.8 mg 12/20/19 22:00 03/20/20 21:29 Tamsulosin 0.4 Mg Cap PO 0.8 mg QHS CAR Administration Nutrition/Malnutrition Assess - Dietary Evaluation Nutrition/Malnutrition Findings: Nutrition Notes Start: 11/24/19 12:22 Freq: Status: Active Protocol: Document 03/17/20 10:48 LM (Rec: 03/17/20 11:08 LM [email or web address]) Nutrition Notes Initial or Follow up Reassessment Current Diagnosis Coronary Artery Disease,Heart Failure,Respiratory Failure, Stroke,Hyperlipidemia Other Pertinent Diagnosis pneumonia Current Diet Osmolite 1.5 at 65ml/hr Labs/Tests Reviewed Pertinent Medications Humulin Height 6 ft 2 in Weight 123.2 kg [place] Body Weight (kg) 86.36 BMI 34.8 Weight Status Obese Subjective/Other Information Observed TF running at 55ml/hr instead of 65ml/hr. Informed RN. Percent of energy/protein needs met: 95%/48% Burn Absent Trauma Absent GI Symptoms None Current % PO Negligible Minimum of two criteria Yes Muscle Mass Mild Depletion (non-severe) Fluid Accumulation Mild (non-severe) Reduced Dredge Mate Strength Measurably Reduced (severe) #2 Nutrition Diagnosis Malnutrition Diagnosis Progress(for reassessment Continues documentation) #1 Nutrition Diagnosis Inadequate oral intake Diagnosis Progress(for reassessment Continues documentation) Is patient on ventilator? Yes Is Patient Ambulatory and/or Out of Bed No REE-([facility]-confined to bed) 2520.672 Kcal/Kg value to use for calculation 17 Approximate Energy Requirements Using 2094 kcal/Kg Calculation Used for Recommendations Kcal/kg Additional Notes Protein needs are 173g ( greater than 2g/kg IBW) Fluid needs are 1 ml/kcal Nutrition Intervention Change Diet Order: Continue TF via PEG Nutrition Support: Osmolite 1.5 at 65 ml/hr. Flush 200 ml q4h. Kcal 2,340 Protein (gm) 98 Fluid (mL) 1,189 Goal #1 Meet at least 75% of pt's energy and protein needs via TF Anticipated Discharge Needs: unable to determine at this time Follow-Up By: 03/22/20 Additional Comments F/U for TF at goal rate
--- NOTE | 2020-03-21 11:12 | Progress Note ---
Assessment and Plan Chest pain, resolved LHC done 01/22/20 widely patent previous LAD stent. We found mild nonobstructive atherosclerosis of the mid right coronary artery. Otherwise the rest of the coronary system was without significant atherosclerosis. LVEF 40 to 45%. There was some hypokinesis of the basal inferior wall suggestive of previous or recent infarct. ECG done 01/19/20 shows sinus rhythm with low voltage QRS and subtle ST segment elevations in the inferolateral leads that suggested possible concern for an acute injury at that time. Atrial fibrillation, rate control on digoxin and low dose metoprolol amiodarone discontinued due to liver transaminases Ischemic Cardiomyopathy re-echo this presentation reports an LVEF 40-45%. Hx of CAD Multifocal pneumonia negative COVID-19 test x 3 Chronic Respiratory failure s/p trach History of COPD Acute PE/DVT -initiated on Eliquis Anemia Partial SBO vs ileus Conservative cardiac management. Subjective Date of service: 03/21/20 Principal diagnosis: Ac hypoxemic resp failure; Pneumonia; PUI COVID-19; CHF; COPD; HTN Interval history: Atrial fibrillation with a well controlled ventricular rate on telemetry, rate 107. Objective Vital Signs Temp Pulse Pulse Resp BP Pulse Ox Pulse Ox 03/21/20 10:00 107 H 13 90/63 99 03/21/20 09:12 112 H 96/75 03/21/20 09:00 120 H 17 96/75 99 03/21/20 08:00 97.4 F L 125 H 116 H 6 L 98/74 100 03/21/20 07:50 109 H 106/70 97 03/21/20 07:00 109 H 18 106/70 99 03/21/20 06:00 125 H 17 105/64 99 03/21/20 05:00 113 H 17 105/64 100 03/21/20 04:27 115 H 105/64 93 03/21/20 04:00 98.2 F 102 H 124 H 18 105/64 99 03/21/20 03:00 125 H 12 96/80 100 03/21/20 02:00 122 H 17 90/71 99 03/21/20 01:00 114 H 19 98/67 99 03/21/20 00:06 110 H 92/68 99 03/21/20 00:00 98.6 F 107 H 119 H 15 92/68 99 03/20/20 23:00 109 H 16 94/62 98 12/27/20 22:40 135 H 15 89/66 97 03/20/20 22:00 126 H 14 89/66 91 03/20/20 21:29 105 H 89/66 03/20/20 21:00 111 H 0 L 94/73 98 03/20/20 20:37 116 H 103/64 98 03/20/20 20:00 98.2 F 101 H 101 H 14 103/64 97 03/20/20 19:00 130 H 13 99/70 100 03/20/20 18:00 124 H 20 99/70 03/20/20 17:00 110 H 17 98/75 03/20/20 16:16 126 H 96/73 100 03/20/20 16:13 100 03/20/20 16:00 98.2 F 116 H 19 90/73 100 03/20/20 15:00 113 H 21 100/78 100 03/20/20 14:00 113 H 16 92/67 100 03/20/20 13:00 103 H 17 92/67 100 03/20/20 12:05 100 03/20/20 12:00 98.1 F 118 H 17 100/67 100 - Physical Examination General: Other (s/p trach) HEENT: Positive: PERRL Neck: Positive: Other (s/p trach) Cardiac: Positive: irregularly irregular Neuro: Positive: Weakness Extremities: Absent: edema - Allied health notes Allied health notes reviewed: nursing
--- NOTE | 2020-03-21 14:04 | Progress Note ---
Assessment and Plan Patient sleeping at this time. Resting on assist control mechanical ventilation, rate 12 , Tidal volume 450, FIO2 30%, PEEP 6 and O2 saturation running 100%. Patients blood presure running slightly low. Patient also slightly tachycardic. Otherwise patient tolerating present ventilator settings. ABG FIO2 30%. ABG pH 7.454 (7.320-7.450) H 03/12/20 04:45 POC ABG pCO2 45.6 mmHg (32.0-48.0) 03/12/20 04:45 ABG pCO2 47.8 mm Hg 02/20/20 06:45 POC ABG pO2 69.2 mmHg (83-108) L 03/12/20 04:45 ABG pO2 88.7 mm Hg (80.0-90.0) 02/20/20 06:45 POC ABG HCO3 31.3 03/12/20 04:45 ABG O2 Saturation 97.2 % (95.0-99.0) 02/20/20 06:45 Recommend spontaneous breathing trials. Patient afebrile. No leukocytosis. Chest xray done 03/10/20reported Mild CHF. Patient is on Apixaban and prevacid. - Patient Problems (1) Acute respiratory failure Current Visit: Yes Status: Acute Plan to address problem: Patient is on mechanical ventilation assist control , rate 12, Tidal volume 450, FIO2 30%, PEEP 6. Albuterol/atrovent aerosol treatments. Continue apixaban Continue prevacid. Recommend spontaneous breathing trials. (2) COPD exacerbation Current Visit: No Status: Acute Plan to address problem: Patient is on mechanical ventilation assist control , rate 12, Tidal volume 450, FIO2 30%, PEEP 6. Albuterol/atrovent aerosol treatments. Continue apixaban Continue prevacid. Recommend spontaneous breathing trials. (3) Bilateral pneumonia Current Visit: Yes Status: Acute Plan to address problem: Chest xray 03/10/20 reported CHF Patient afebrile. No leukocytosis. (4) CHF exacerbation Current Visit: Yes Status: Acute Plan to address problem: Management as per cardiology. (5) Cardiomyopathy Current Visit: Yes Status: Acute Plan to address problem: Management as per cardiology. (6) Pancreatic lesion Current Visit: Yes Status: Acute Plan to address problem: Management as per primary care. (7) Paroxysmal atrial fibrillation Current Visit: Yes Status: Acute Plan to address problem: Patient is on apixaban. Management as per cardiology. (8) CVA (cerebral vascular accident) Current Visit: No Status: Acute Qualifiers: Precerebral and cerebral artery: middle cerebral artery Laterality of affected vessel: right Plan to address problem: Management as per primary care. (9) Cocaine dependence Current Visit: No Status: Acute Plan to address problem: Management as per primary care. (10) HTN (hypertension) Current Visit: No Status: Acute Qualifiers: Hypertension type: essential hypertension Qualified Code(s): I10 - Essential (primary) hypertension Plan to address problem: Management as per primary care. (11) Nicotine dependence Current Visit: No Status: Acute Qualifiers: Nicotine product type: cigarettes Substance use status: in withdrawal Qualified Code(s): F17.213 - Nicotine dependence, cigarettes, with withdrawal Plan to address problem: Counseled to stop smoking. (12) Obesity hypoventilation syndrome Current Visit: No Status: Acute Plan to address problem: Patient S/P tracheostomy and on mechanical ventilation. Subjective Date of service: 03/21/20 Principal diagnosis: Ac hypoxemic resp failure; Pneumonia; PUI COVID-19; CHF; COPD; HTN Interval history: Patient sleeping at this time. Resting on assist control mechanical ventilation, rate 12 , Tidal volume 450, FIO2 30%, PEEP 6 and O2 saturation running 98%. Patients blood presure running slightly low. Patient also slightly tachycardic. Otherwise patient tolerating present ventilator settings. ABG FIO2 30%. ABG pH 7.454 (7.320-7.450) H 03/12/20 04:45 POC ABG pCO2 45.6 mmHg (32.0-48.0) 03/12/20 04:45 ABG pCO2 47.8 mm Hg 02/20/20 06:45 POC ABG pO2 69.2 mmHg (83-108) L 03/12/20 04:45 ABG pO2 88.7 mm Hg (80.0-90.0) 02/20/20 06:45 POC ABG HCO3 31.3 03/12/20 04:45 ABG O2 Saturation 97.2 % (95.0-99.0) 02/20/20 06:45 Recommend spontaneous breathing trials. Patient afebrile. No leukocytosis. Chest xray done 03/10/20reported Mild CHF. Patient is on Apixaban and prevacid. Objective Vital Signs - 12hr 03/21/20 03/21/20 03/21/20 03:00 04:00 04:27 Temperature 98.2 F Pulse Rate 125 H 102 H 115 H Pulse Rate [ 124 H From Monitor] Respiratory 12 18 Rate Blood Pressure 96/80 105/64 105/64 O2 Sat by Pulse 100 99 93 Oximetry 03/21/20 03/21/20 03/21/20 05:00 06:00 07:00 Temperature Pulse Rate 113 H 125 H 109 H Pulse Rate [ From Monitor] Respiratory 17 17 18 Rate Blood Pressure 105/64 105/64 106/70 O2 Sat by Pulse 100 99 99 Oximetry 03/21/20 03/21/20 03/21/20 07:50 08:00 09:00 Temperature 97.4 F L Pulse Rate 109 H 125 H 120 H Pulse Rate [ 116 H From Monitor] Respiratory 6 L 17 Rate Blood Pressure 106/70 98/74 96/75 O2 Sat by Pulse 97 100 99 Oximetry 03/21/20 03/21/20 03/21/20 09:12 10:00 11:00 Temperature Pulse Rate 112 H 107 H 122 H Pulse Rate [ From Monitor] Respiratory 13 15 Rate Blood Pressure 96/75 90/63 81/57 O2 Sat by Pulse 99 100 Oximetry 03/21/20 03/21/20 03/21/20 11:53 12:00 13:01 Temperature 97.6 F Pulse Rate 126 H 116 H 122 H Pulse Rate [ 117 H From Monitor] Respiratory 15 18 Rate Blood Pressure 81/57 81/57 91/68 O2 Sat by Pulse 99 100 100 Oximetry Constitutional: no acute distress, asleep, other (elelelderly and obese male, normocephalic with mildly increased respiratory effort at rest) Eyes: non-icteric ENT: oropharynx moist, other (+ midline tracheostomy) Neck: supple, no JVD Effort: mildly labored Ascultation: Bilateral: diminished breath sounds, rhonchi (scant), other (tracheal secretions ) Percussion: Bilateral: not dull Cardiovascular: irregular rhythm Gastrointestinal: normoactive bowel sounds, soft, non-tender, non-distended (protuberant), other (protuberant; PEG in place) Integumentary: normal Extremities: no cyanosis, no edema, pulses normal, no ischemia or petechiae Neurologic: non-focal exam (grossly; moves extremities), pupils equal and round, other (intermittent agitation) Psychiatric: mood appropriate, affect normal CBC and BMP: 03/15/20 04:05 03/19/20 07:50 ABG, PT/INR, D-dimer: ABG ABG pH 7.454 (7.320-7.450) H 03/12/20 04:45 POC ABG pCO2 45.6 mmHg (32.0-48.0) 03/12/20 04:45 ABG pCO2 47.8 mm Hg 02/20/20 06:45 POC ABG pO2 69.2 mmHg (83-108) L 03/12/20 04:45 ABG pO2 88.7 mm Hg (80.0-90.0) 02/20/20 06:45 POC ABG HCO3 31.3 03/12/20 04:45 ABG O2 Saturation 97.2 % (95.0-99.0) 02/20/20 06:45 PT/INR, D-dimer PT 27.0 Sec. (12.2-14.9) H 02/07/20 15:03 INR 2.46 (0.87-1.13) H 02/07/20 15:03 Abnormal lab findings: Abnormal Labs 11/24/19 11/24/19 11/24/19 02:53 02:53 03:45 WBC 14.3 H RBC Hgb Hct MCHC RDW 17.2 H MCV MCH Lymph % (Auto) [place] % (Auto) [place] # Eos # Lymph # (Auto) [place] # (Auto) Eos # (Auto) Seg Neutrophils % Seg Neuts % (Manual) Baso # (Auto) Lymphocytes % (Manual) Monocytes % (Manual) Eosinophils % (Manual) Basophils % (Manual) Seg Neutrophils # Seg Neutrophils # Man 8.3 H Lymphocytes # (Manual) Monocytes # (Manual) 0.9 H Eosinophils # (Manual) Nucleated RBC % Basophils # (Manual) PT INR APTT Heparin Anti-Xa Level ABG pH 7.313 L POC ABG pO2 ABG pO2 102.8 H ABG HCO3 ABG O2 Saturation ABG Base Excess -2.9 L POC ABG pCO2 ABG Hemoglobin ABG Oxyhemoglobin ABG Sodium ABG Chloride ABG Glucose Oxyhemoglobin 93.9 L Sodium Potassium Chloride Carbon Dioxide BUN Creatinine Glucose 195 H POC Glucose Lactic Acid Calcium Phosphorus Magnesium AST ALT Lactate Dehydrogenase Total Bilirubin Direct Bilirubin CK-MB (CK-2) 4.3 H C-Reactive Protein NT-Pro-B Natriuret Pep 1181 H Total Protein Albumin Arterial Blood Glucose Urine WBC (Auto) Urine Creatinine 11/24/19 11/24/19 11/24/19 04:53 04:53 10:37 WBC RBC Hgb Hct MCHC RDW MCV MCH Lymph % (Auto) [place] % (Auto) [place] # Eos # Lymph # (Auto) [place] # (Auto) Eos # (Auto) Seg Neutrophils % Seg Neuts % (Manual) Baso # (Auto) Lymphocytes % (Manual) Monocytes % (Manual) Eosinophils % (Manual) Basophils % (Manual) Seg Neutrophils # Seg Neutrophils # Man Lymphocytes # (Manual) Monocytes # (Manual) Eosinophils # (Manual) Nucleated RBC % Basophils # (Manual) PT INR APTT Heparin Anti-Xa Level ABG pH POC ABG pO2 ABG pO2 ABG HCO3 ABG O2 Saturation ABG Base Excess POC ABG pCO2 ABG Hemoglobin ABG Oxyhemoglobin ABG Sodium ABG Chloride ABG Glucose Oxyhemoglobin Sodium Potassium Chloride Carbon Dioxide BUN Creatinine Glucose 162 H POC Glucose Lactic Acid 2.40 H* 2.50 H* Calcium Phosphorus Magnesium AST ALT Lactate Dehydrogenase 240 H Total Bilirubin Direct Bilirubin CK-MB (CK-2) C-Reactive Protein NT-Pro-B Natriuret Pep Total Protein Albumin Arterial Blood Glucose Urine WBC (Auto) Urine Creatinine 11/24/19 11/24/19 11/24/19 12:21 14:50 19:54 WBC RBC Hgb Hct MCHC RDW MCV MCH Lymph % (Auto) [place] % (Auto) [place] # Eos # Lymph # (Auto) [place] # (Auto) Eos # (Auto) Seg Neutrophils % Seg Neuts % (Manual) Baso # (Auto) Lymphocytes % (Manual) Monocytes % (Manual) Eosinophils % (Manual) Basophils % (Manual) Seg Neutrophils # Seg Neutrophils # Man Lymphocytes # (Manual) Monocytes # (Manual) Eosinophils # (Manual) Nucleated RBC % Basophils # (Manual) PT INR APTT Heparin Anti-Xa Level ABG pH POC ABG pO2 ABG pO2 ABG HCO3 ABG O2 Saturation ABG Base Excess POC ABG pCO2 ABG Hemoglobin ABG Oxyhemoglobin ABG Sodium ABG Chloride ABG Glucose Oxyhemoglobin Sodium Potassium Chloride Carbon Dioxide BUN Creatinine Glucose POC Glucose 145 H 143 H 124 H Lactic Acid Calcium Phosphorus Magnesium AST ALT Lactate Dehydrogenase Total Bilirubin Direct Bilirubin CK-MB (CK-2) C-Reactive Protein NT-Pro-B Natriuret Pep Total Protein Albumin Arterial Blood Glucose Urine WBC (Auto) Urine Creatinine 11/25/19 11/25/19 11/25/19 00:18 03:18 05:11 WBC 13.7 H RBC Hgb Hct MCHC RDW 17.1 H MCV MCH Lymph % (Auto) 10.8 L [place] % (Auto) 8.7 H [place] # 1.2 H Eos # Lymph # (Auto) [place] # (Auto) Eos # (Auto) Seg Neutrophils % 80.2 H Seg Neuts % (Manual) Baso # (Auto) Lymphocytes % (Manual) Monocytes % (Manual) Eosinophils % (Manual) Basophils % (Manual) Seg Neutrophils # 11.0 H Seg Neutrophils # Man Lymphocytes # (Manual) Monocytes # (Manual) Eosinophils # (Manual) Nucleated RBC % Basophils # (Manual) PT INR APTT Heparin Anti-Xa Level ABG pH 7.333 L POC ABG pO2 ABG pO2 61.2 L ABG HCO3 ABG O2 Saturation 90.2 L ABG Base Excess POC ABG pCO2 ABG Hemoglobin 13.7 L ABG Oxyhemoglobin ABG Sodium ABG Chloride ABG Glucose Oxyhemoglobin 88.2 L Sodium Potassium Chloride Carbon Dioxide BUN Creatinine Glucose POC Glucose 109 H Lactic Acid Calcium Phosphorus Magnesium AST ALT Lactate Dehydrogenase Total Bilirubin Direct Bilirubin CK-MB (CK-2) C-Reactive Protein NT-Pro-B Natriuret Pep Total Protein Albumin Arterial Blood Glucose Urine WBC (Auto) Urine Creatinine 11/25/19 11/25/19 11/26/19 05:11 11:40 03:12 WBC RBC Hgb Hct MCHC RDW MCV MCH Lymph % (Auto) [place] % (Auto) [place] # Eos # Lymph # (Auto) [place] # (Auto) Eos # (Auto) Seg Neutrophils % Seg Neuts % (Manual) Baso # (Auto) Lymphocytes % (Manual) Monocytes % (Manual) Eosinophils % (Manual) Basophils % (Manual) Seg Neutrophils # Seg Neutrophils # Man Lymphocytes # (Manual) Monocytes # (Manual) Eosinophils # (Manual) Nucleated RBC % Basophils # (Manual) PT INR APTT Heparin Anti-Xa Level ABG pH POC ABG pO2 ABG pO2 155.1 H ABG HCO3 27.8 H ABG O2 Saturation ABG Base Excess POC ABG pCO2 ABG Hemoglobin 12.2 L ABG Oxyhemoglobin ABG Sodium ABG Chloride ABG Glucose Oxyhemoglobin Sodium Potassium Chloride Carbon Dioxide BUN 23 H Creatinine Glucose 110 H POC Glucose 108 H Lactic Acid Calcium Phosphorus Magnesium AST ALT Lactate Dehydrogenase Total Bilirubin Direct Bilirubin CK-MB (CK-2) C-Reactive Protein NT-Pro-B Natriuret Pep Total Protein Albumin Arterial Blood Glucose Urine WBC (Auto) Urine Creatinine 11/26/19 11/26/19 11/26/19 06:17 10:43 10:43 WBC 11.4 H RBC Hgb Hct MCHC RDW 17.1 H MCV MCH Lymph % (Auto) [place] % (Auto) [place] # Eos # Lymph # (Auto) [place] # (Auto) Eos # (Auto) Seg Neutrophils % Seg Neuts % (Manual) Baso # (Auto) Lymphocytes % (Manual) Monocytes % (Manual) Eosinophils % (Manual) Basophils % (Manual) Seg Neutrophils # Seg Neutrophils # Man Lymphocytes # (Manual) Monocytes # (Manual) Eosinophils # (Manual) Nucleated RBC % Basophils # (Manual) PT INR APTT Heparin Anti-Xa Level ABG pH POC ABG pO2 ABG pO2 ABG HCO3 ABG O2 Saturation ABG Base Excess POC ABG pCO2 ABG Hemoglobin ABG Oxyhemoglobin ABG Sodium ABG Chloride ABG Glucose Oxyhemoglobin Sodium Potassium Chloride Carbon Dioxide BUN 29 H Creatinine Glucose POC Glucose 107 H Lactic Acid Calcium Phosphorus Magnesium AST ALT Lactate Dehydrogenase Total Bilirubin Direct Bilirubin CK-MB (CK-2) C-Reactive Protein NT-Pro-B Natriuret Pep Total Protein Albumin Arterial Blood Glucose Urine WBC (Auto) Urine Creatinine 11/26/19 11/27/19 11/27/19 17:11 01:53 04:11 WBC RBC Hgb Hct MCHC RDW MCV MCH Lymph % (Auto) [place] % (Auto) [place] # Eos # Lymph # (Auto) [place] # (Auto) Eos # (Auto) Seg Neutrophils % Seg Neuts % (Manual) Baso # (Auto) Lymphocytes % (Manual) Monocytes % (Manual) Eosinophils % (Manual) Basophils % (Manual) Seg Neutrophils # Seg Neutrophils # Man Lymphocytes # (Manual) Monocytes # (Manual) Eosinophils # (Manual) Nucleated RBC % Basophils # (Manual) PT INR APTT Heparin Anti-Xa Level ABG pH POC ABG pO2 ABG pO2 ABG HCO3 29.2 H ABG O2 Saturation ABG Base Excess 3.4 H POC ABG pCO2 ABG Hemoglobin 13.3 L ABG Oxyhemoglobin ABG Sodium ABG Chloride ABG Glucose Oxyhemoglobin 94.5 L Sodium Potassium Chloride Carbon Dioxide BUN Creatinine Glucose POC Glucose 113 H 108 H Lactic Acid Calcium Phosphorus Magnesium AST ALT Lactate Dehydrogenase Total Bilirubin Direct Bilirubin CK-MB (CK-2) C-Reactive Protein NT-Pro-B Natriuret Pep Total Protein Albumin Arterial Blood Glucose Urine WBC (Auto) Urine Creatinine 11/27/19 11/28/19 11/28/19 05:27 05:00 05:25 WBC RBC Hgb Hct MCHC RDW MCV MCH Lymph % (Auto) [place] % (Auto) [place] # Eos # Lymph # (Auto) [place] # (Auto) Eos # (Auto) Seg Neutrophils % Seg Neuts % (Manual) Baso # (Auto) Lymphocytes % (Manual) Monocytes % (Manual) Eosinophils % (Manual) Basophils % (Manual) Seg Neutrophils # Seg Neutrophils # Man Lymphocytes # (Manual) Monocytes # (Manual) Eosinophils # (Manual) Nucleated RBC % Basophils # (Manual) PT INR APTT Heparin Anti-Xa Level ABG pH POC ABG pO2 68.1 L ABG pO2 ABG HCO3 ABG O2 Saturation ABG Base Excess POC ABG pCO2 ABG Hemoglobin ABG Oxyhemoglobin 91.2 L ABG Sodium ABG Chloride ABG Glucose Oxyhemoglobin Sodium Potassium Chloride Carbon Dioxide BUN Creatinine Glucose POC Glucose 111 H 110 H Lactic Acid Calcium Phosphorus Magnesium AST ALT Lactate Dehydrogenase Total Bilirubin Direct Bilirubin CK-MB (CK-2) C-Reactive Protein NT-Pro-B Natriuret Pep Total Protein Albumin Arterial Blood Glucose Urine WBC (Auto) Urine Creatinine 11/28/19 11/28/19 11/28/19 12:08 13:47 13:47 WBC 11.3 H RBC Hgb Hct MCHC RDW 16.1 H MCV MCH Lymph % (Auto) [place] % (Auto) 9.9 H [place] # 1.1 H Eos # Lymph # (Auto) [place] # (Auto) Eos # (Auto) Seg Neutrophils % 71.4 H Seg Neuts % (Manual) Baso # (Auto) Lymphocytes % (Manual) Monocytes % (Manual) Eosinophils % (Manual) Basophils % (Manual) Seg Neutrophils # 8.1 H Seg Neutrophils # Man Lymphocytes # (Manual) Monocytes # (Manual) Eosinophils # (Manual) Nucleated RBC % Basophils # (Manual) PT INR APTT Heparin Anti-Xa Level ABG pH POC ABG pO2 ABG pO2 ABG HCO3 ABG O2 Saturation ABG Base Excess POC ABG pCO2 ABG Hemoglobin ABG Oxyhemoglobin ABG Sodium ABG Chloride ABG Glucose Oxyhemoglobin Sodium Potassium Chloride Carbon Dioxide BUN 23 H Creatinine Glucose 123 H POC Glucose 112 H Lactic Acid Calcium Phosphorus Magnesium AST ALT Lactate Dehydrogenase Total Bilirubin Direct Bilirubin CK-MB (CK-2) C-Reactive Protein NT-Pro-B Natriuret Pep Total Protein Albumin 3.7 L Arterial Blood Glucose Urine WBC (Auto) Urine Creatinine 11/28/19 11/29/19 11/29/19 17:26 03:55 17:04 WBC RBC Hgb Hct MCHC RDW MCV MCH Lymph % (Auto) [place] % (Auto) [place] # Eos # Lymph # (Auto) [place] # (Auto) Eos # (Auto) Seg Neutrophils % Seg Neuts % (Manual) Baso # (Auto) Lymphocytes % (Manual) Monocytes % (Manual) Eosinophils % (Manual) Basophils % (Manual) Seg Neutrophils # Seg Neutrophils # Man Lymphocytes # (Manual) Monocytes # (Manual) Eosinophils # (Manual) Nucleated RBC % Basophils # (Manual) PT INR APTT Heparin Anti-Xa Level ABG pH POC ABG pO2 ABG pO2 65.7 L ABG HCO3 28.3 H ABG O2 Saturation 93.9 L ABG Base Excess 3.6 H POC ABG pCO2 ABG Hemoglobin 13.3 L ABG Oxyhemoglobin ABG Sodium ABG Chloride ABG Glucose Oxyhemoglobin 91.5 L Sodium Potassium Chloride Carbon Dioxide BUN Creatinine Glucose POC Glucose 123 H 119 H Lactic Acid Calcium Phosphorus Magnesium AST ALT Lactate Dehydrogenase Total Bilirubin Direct Bilirubin CK-MB (CK-2) C-Reactive Protein NT-Pro-B Natriuret Pep Total Protein Albumin Arterial Blood Glucose Urine WBC (Auto) Urine Creatinine 11/30/19 11/30/19 11/30/19 04:17 04:17 04:56 WBC 13.4 H RBC Hgb Hct MCHC RDW 15.6 H MCV MCH Lymph % (Auto) [place] % (Auto) [place] # Eos # Lymph # (Auto) [place] # (Auto) Eos # (Auto) Seg Neutrophils % Seg Neuts % (Manual) Baso # (Auto) Lymphocytes % (Manual) Monocytes % (Manual) Eosinophils % (Manual) Basophils % (Manual) Seg Neutrophils # Seg Neutrophils # Man Lymphocytes # (Manual) Monocytes # (Manual) Eosinophils # (Manual) Nucleated RBC % Basophils # (Manual) PT INR APTT Heparin Anti-Xa Level ABG pH POC ABG pO2 ABG pO2 56.3 L ABG HCO3 29.3 H ABG O2 Saturation 91.5 L ABG Base Excess 4.7 H POC ABG pCO2 ABG Hemoglobin 12.1 L ABG Oxyhemoglobin ABG Sodium ABG Chloride ABG Glucose Oxyhemoglobin 89.2 L Sodium 147 H Potassium Chloride Carbon Dioxide BUN 30 H Creatinine Glucose 124 H POC Glucose Lactic Acid Calcium Phosphorus Magnesium AST ALT Lactate Dehydrogenase Total Bilirubin Direct Bilirubin CK-MB (CK-2) C-Reactive Protein NT-Pro-B Natriuret Pep Total Protein Albumin 3.8 L Arterial Blood Glucose Urine WBC (Auto) Urine Creatinine 11/30/19 11/30/19 11/30/19 05:51 11:54 18:17 WBC RBC Hgb Hct MCHC RDW MCV MCH Lymph % (Auto) [place] % (Auto) [place] # Eos # Lymph # (Auto) [place] # (Auto) Eos # (Auto) Seg Neutrophils % Seg Neuts % (Manual) Baso # (Auto) Lymphocytes % (Manual) Monocytes % (Manual) Eosinophils % (Manual) Basophils % (Manual) Seg Neutrophils # Seg Neutrophils # Man Lymphocytes # (Manual) Monocytes # (Manual) Eosinophils # (Manual) Nucleated RBC % Basophils # (Manual) PT INR APTT Heparin Anti-Xa Level ABG pH POC ABG pO2 ABG pO2 ABG HCO3 ABG O2 Saturation ABG Base Excess POC ABG pCO2 ABG Hemoglobin ABG Oxyhemoglobin ABG Sodium ABG Chloride ABG Glucose Oxyhemoglobin Sodium Potassium Chloride Carbon Dioxide BUN Creatinine Glucose POC Glucose 127 H 115 H 143 H Lactic Acid Calcium Phosphorus Magnesium AST ALT Lactate Dehydrogenase Total Bilirubin Direct Bilirubin CK-MB (CK-2) C-Reactive Protein NT-Pro-B Natriuret Pep Total Protein Albumin Arterial Blood Glucose Urine WBC (Auto) Urine Creatinine 12/01/19 12/01/19 12/01/19 01:18 05:22 12:16 WBC RBC Hgb Hct MCHC RDW MCV MCH Lymph % (Auto) [place] % (Auto) [place] # Eos # Lymph # (Auto) [place] # (Auto) Eos # (Auto) Seg Neutrophils % Seg Neuts % (Manual) Baso # (Auto) Lymphocytes % (Manual) Monocytes % (Manual) Eosinophils % (Manual) Basophils % (Manual) Seg Neutrophils # Seg Neutrophils # Man Lymphocytes # (Manual) Monocytes # (Manual) Eosinophils # (Manual) Nucleated RBC % Basophils # (Manual) PT INR APTT Heparin Anti-Xa Level ABG pH POC ABG pO2 ABG pO2 ABG HCO3 ABG O2 Saturation ABG Base Excess POC ABG pCO2 ABG Hemoglobin ABG Oxyhemoglobin ABG Sodium ABG Chloride ABG Glucose Oxyhemoglobin Sodium Potassium 3.5 L Chloride 107.8 H Carbon Dioxide BUN 37 H Creatinine Glucose 157 H POC Glucose 118 H 148 H Lactic Acid Calcium 8.2 L D Phosphorus Magnesium AST 48 H ALT 60 H Lactate Dehydrogenase 194 H Total Bilirubin Direct Bilirubin CK-MB (CK-2) C-Reactive Protein 8.50 H NT-Pro-B Natriuret Pep Total Protein 5.5 L Albumin 2.8 L Arterial Blood Glucose Urine WBC (Auto) Urine Creatinine 12/01/19 12/02/19 12/02/19 18:04 00:05 05:16 WBC 11.4 H RBC Hgb Hct MCHC RDW 15.9 H MCV MCH Lymph % (Auto) [place] % (Auto) 9.9 H [place] # 1.1 H Eos # Lymph # (Auto) [place] # (Auto) Eos # (Auto) Seg Neutrophils % 70.3 H Seg Neuts % (Manual) Baso # (Auto) Lymphocytes % (Manual) Monocytes % (Manual) Eosinophils % (Manual) Basophils % (Manual) Seg Neutrophils # 8.0 H Seg Neutrophils # Man Lymphocytes # (Manual) Monocytes # (Manual) Eosinophils # (Manual) Nucleated RBC % Basophils # (Manual) PT INR APTT Heparin Anti-Xa Level ABG pH POC ABG pO2 ABG pO2 ABG HCO3 ABG O2 Saturation ABG Base Excess POC ABG pCO2 ABG Hemoglobin ABG Oxyhemoglobin ABG Sodium ABG Chloride ABG Glucose Oxyhemoglobin Sodium Potassium Chloride Carbon Dioxide BUN Creatinine Glucose POC Glucose 143 H 107 H Lactic Acid Calcium Phosphorus Magnesium AST ALT Lactate Dehydrogenase Total Bilirubin Direct Bilirubin CK-MB (CK-2) C-Reactive Protein NT-Pro-B Natriuret Pep Total Protein Albumin Arterial Blood Glucose Urine WBC (Auto) Urine Creatinine 12/02/19 12/02/19 12/02/19 05:16 06:03 11:52 WBC RBC Hgb Hct MCHC RDW MCV MCH Lymph % (Auto) [place] % (Auto) [place] # Eos # Lymph # (Auto) [place] # (Auto) Eos # (Auto) Seg Neutrophils % Seg Neuts % (Manual) Baso # (Auto) Lymphocytes % (Manual) Monocytes % (Manual) Eosinophils % (Manual) Basophils % (Manual) Seg Neutrophils # Seg Neutrophils # Man Lymphocytes # (Manual) Monocytes # (Manual) Eosinophils # (Manual) Nucleated RBC % Basophils # (Manual) PT INR APTT Heparin Anti-Xa Level ABG pH POC ABG pO2 ABG pO2 ABG HCO3 ABG O2 Saturation ABG Base Excess POC ABG pCO2 ABG Hemoglobin ABG Oxyhemoglobin ABG Sodium ABG Chloride ABG Glucose Oxyhemoglobin Sodium 146 H Potassium Chloride Carbon Dioxide BUN 28 H Creatinine Glucose 123 H POC Glucose 110 H 152 H Lactic Acid Calcium Phosphorus Magnesium AST ALT Lactate Dehydrogenase Total Bilirubin Direct Bilirubin CK-MB (CK-2) C-Reactive Protein NT-Pro-B Natriuret Pep Total Protein Albumin Arterial Blood Glucose Urine WBC (Auto) Urine Creatinine 12/02/19 12/02/19 12/02/19 12:58 17:58 23:36 WBC RBC Hgb Hct MCHC RDW MCV MCH Lymph % (Auto) [place] % (Auto) [place] # Eos # Lymph # (Auto) [place] # (Auto) Eos # (Auto) Seg Neutrophils % Seg Neuts % (Manual) Baso # (Auto) Lymphocytes % (Manual) Monocytes % (Manual) Eosinophils % (Manual) Basophils % (Manual) Seg Neutrophils # Seg Neutrophils # Man Lymphocytes # (Manual) Monocytes # (Manual) Eosinophils # (Manual) Nucleated RBC % Basophils # (Manual) PT INR APTT Heparin Anti-Xa Level ABG pH POC ABG pO2 78.1 L ABG pO2 ABG HCO3 ABG O2 Saturation ABG Base Excess POC ABG pCO2 ABG Hemoglobin ABG Oxyhemoglobin ABG Sodium ABG Chloride ABG Glucose Oxyhemoglobin Sodium Potassium Chloride Carbon Dioxide BUN Creatinine Glucose POC Glucose 120 H 123 H Lactic Acid Calcium Phosphorus Magnesium AST ALT Lactate Dehydrogenase Total Bilirubin Direct Bilirubin CK-MB (CK-2) C-Reactive Protein NT-Pro-B Natriuret Pep Total Protein Albumin Arterial Blood Glucose Urine WBC (Auto) Urine Creatinine 12/03/19 12/03/19 12/03/19 06:03 06:14 11:46 WBC RBC Hgb Hct MCHC RDW MCV MCH Lymph % (Auto) [place] % (Auto) [place] # Eos # Lymph # (Auto) [place] # (Auto) Eos # (Auto) Seg Neutrophils % Seg Neuts % (Manual) Baso # (Auto) Lymphocytes % (Manual) Monocytes % (Manual) Eosinophils % (Manual) Basophils % (Manual) Seg Neutrophils # Seg Neutrophils # Man Lymphocytes # (Manual) Monocytes # (Manual) Eosinophils # (Manual) Nucleated RBC % Basophils # (Manual) PT INR APTT Heparin Anti-Xa Level ABG pH POC ABG pO2 ABG pO2 ABG HCO3 ABG O2 Saturation ABG Base Excess POC ABG pCO2 ABG Hemoglobin ABG Oxyhemoglobin ABG Sodium ABG Chloride ABG Glucose Oxyhemoglobin Sodium Potassium Chloride Carbon Dioxide BUN Creatinine Glucose POC Glucose 142 H 130 H Lactic Acid Calcium Phosphorus Magnesium AST ALT Lactate Dehydrogenase Total Bilirubin Direct Bilirubin CK-MB (CK-2) C-Reactive Protein NT-Pro-B Natriuret Pep Total Protein Albumin Arterial Blood Glucose Urine WBC (Auto) 8.0 H Urine Creatinine 12/03/19 12/03/19 12/04/19 15:50 17:39 00:04 WBC RBC Hgb Hct MCHC RDW MCV MCH Lymph % (Auto) [place] % (Auto) [place] # Eos # Lymph # (Auto) [place] # (Auto) Eos # (Auto) Seg Neutrophils % Seg Neuts % (Manual) Baso # (Auto) Lymphocytes % (Manual) Monocytes % (Manual) Eosinophils % (Manual) Basophils % (Manual) Seg Neutrophils # Seg Neutrophils # Man Lymphocytes # (Manual) Monocytes # (Manual) Eosinophils # (Manual) Nucleated RBC % Basophils # (Manual) PT INR APTT Heparin Anti-Xa Level ABG pH POC ABG pO2 ABG pO2 ABG HCO3 ABG O2 Saturation ABG Base Excess POC ABG pCO2 ABG Hemoglobin ABG Oxyhemoglobin ABG Sodium ABG Chloride ABG Glucose Oxyhemoglobin Sodium Potassium Chloride Carbon Dioxide BUN Creatinine Glucose POC Glucose 146 H 133 H Lactic Acid Calcium Phosphorus 2.40 L Magnesium AST ALT Lactate Dehydrogenase Total Bilirubin Direct Bilirubin CK-MB (CK-2) C-Reactive Protein NT-Pro-B Natriuret Pep Total Protein Albumin Arterial Blood Glucose Urine WBC (Auto) Urine Creatinine 12/04/19 12/04/19 12/04/19 03:58 03:58 05:22 WBC 12.5 H RBC Hgb 11.2 L Hct 35.2 L MCHC RDW 16.0 H MCV MCH Lymph % (Auto) [place] % (Auto) 9.6 H [place] # 1.2 H Eos # 0.5 H Lymph # (Auto) [place] # (Auto) Eos # (Auto) Seg Neutrophils % Seg Neuts % (Manual) Baso # (Auto) Lymphocytes % (Manual) Monocytes % (Manual) Eosinophils % (Manual) Basophils % (Manual) Seg Neutrophils # 8.6 H Seg Neutrophils # Man Lymphocytes # (Manual) Monocytes # (Manual) Eosinophils # (Manual) Nucleated RBC % Basophils # (Manual) PT INR APTT Heparin Anti-Xa Level ABG pH POC ABG pO2 ABG pO2 ABG HCO3 ABG O2 Saturation ABG Base Excess POC ABG pCO2 ABG Hemoglobin ABG Oxyhemoglobin ABG Sodium ABG Chloride ABG Glucose Oxyhemoglobin Sodium 146 H Potassium Chloride 108.6 H Carbon Dioxide BUN 30 H Creatinine 0.7 L Glucose 121 H POC Glucose 132 H Lactic Acid Calcium Phosphorus Magnesium AST ALT Lactate Dehydrogenase Total Bilirubin Direct Bilirubin CK-MB (CK-2) C-Reactive Protein NT-Pro-B Natriuret Pep Total Protein Albumin Arterial Blood Glucose Urine WBC (Auto) Urine Creatinine 12/04/19 12/04/19 12/05/19 13:26 18:43 00:19 WBC RBC Hgb Hct MCHC RDW MCV MCH Lymph % (Auto) [place] % (Auto) [place] # Eos # Lymph # (Auto) [place] # (Auto) Eos # (Auto) Seg Neutrophils % Seg Neuts % (Manual) Baso # (Auto) Lymphocytes % (Manual) Monocytes % (Manual) Eosinophils % (Manual) Basophils % (Manual) Seg Neutrophils # Seg Neutrophils # Man Lymphocytes # (Manual) Monocytes # (Manual) Eosinophils # (Manual) Nucleated RBC % Basophils # (Manual) PT INR APTT Heparin Anti-Xa Level ABG pH POC ABG pO2 ABG pO2 ABG HCO3 ABG O2 Saturation ABG Base Excess POC ABG pCO2 ABG Hemoglobin ABG Oxyhemoglobin ABG Sodium ABG Chloride ABG Glucose Oxyhemoglobin Sodium Potassium Chloride Carbon Dioxide BUN Creatinine Glucose POC Glucose 185 H 156 H 150 H Lactic Acid Calcium Phosphorus Magnesium AST ALT Lactate Dehydrogenase Total Bilirubin Direct Bilirubin CK-MB (CK-2) C-Reactive Protein NT-Pro-B Natriuret Pep Total Protein Albumin Arterial Blood Glucose Urine WBC (Auto) Urine Creatinine 12/05/19 12/05/19 12/05/19 03:37 03:37 05:14 WBC 16.3 H RBC Hgb 11.4 L Hct MCHC RDW 15.6 H MCV MCH Lymph % (Auto) 9.9 L [place] % (Auto) 9.7 H [place] # 1.6 H Eos # Lymph # (Auto) [place] # (Auto) Eos # (Auto) Seg Neutrophils % 78.0 H Seg Neuts % (Manual) Baso # (Auto) Lymphocytes % (Manual) Monocytes % (Manual) Eosinophils % (Manual) Basophils % (Manual) Seg Neutrophils # 12.7 H Seg Neutrophils # Man Lymphocytes # (Manual) Monocytes # (Manual) Eosinophils # (Manual) Nucleated RBC % Basophils # (Manual) PT INR APTT Heparin Anti-Xa Level ABG pH POC ABG pO2 ABG pO2 ABG HCO3 ABG O2 Saturation ABG Base Excess POC ABG pCO2 ABG Hemoglobin ABG Oxyhemoglobin ABG Sodium ABG Chloride ABG Glucose Oxyhemoglobin Sodium 146 H Potassium Chloride 107.2 H Carbon Dioxide BUN 27 H Creatinine 0.7 L Glucose 171 H POC Glucose 168 H Lactic Acid Calcium Phosphorus Magnesium AST ALT Lactate Dehydrogenase Total Bilirubin Direct Bilirubin CK-MB (CK-2) C-Reactive Protein NT-Pro-B Natriuret Pep Total Protein Albumin Arterial Blood Glucose Urine WBC (Auto) Urine Creatinine 12/05/19 12/05/19 12/05/19 12:31 18:10 23:58 WBC RBC Hgb Hct MCHC RDW MCV MCH Lymph % (Auto) [place] % (Auto) [place] # Eos # Lymph # (Auto) [place] # (Auto) Eos # (Auto) Seg Neutrophils % Seg Neuts % (Manual) Baso # (Auto) Lymphocytes % (Manual) Monocytes % (Manual) Eosinophils % (Manual) Basophils % (Manual) Seg Neutrophils # Seg Neutrophils # Man Lymphocytes # (Manual) Monocytes # (Manual) Eosinophils # (Manual) Nucleated RBC % Basophils # (Manual) PT INR APTT Heparin Anti-Xa Level ABG pH POC ABG pO2 ABG pO2 ABG HCO3 ABG O2 Saturation ABG Base Excess POC ABG pCO2 ABG Hemoglobin ABG Oxyhemoglobin ABG Sodium ABG Chloride ABG Glucose Oxyhemoglobin Sodium Potassium Chloride Carbon Dioxide BUN Creatinine Glucose POC Glucose 159 H 198 H 115 H Lactic Acid Calcium Phosphorus Magnesium AST ALT Lactate Dehydrogenase Total Bilirubin Direct Bilirubin CK-MB (CK-2) C-Reactive Protein NT-Pro-B Natriuret Pep Total Protein Albumin Arterial Blood Glucose Urine WBC (Auto) Urine Creatinine 12/06/19 12/06/19 12/06/19 05:24 05:24 05:25 WBC 14.9 H RBC Hgb 10.8 L Hct 34.0 L MCHC RDW 15.6 H MCV MCH Lymph % (Auto) 10.7 L [place] % (Auto) 8.3 H [place] # 1.2 H Eos # Lymph # (Auto) [place] # (Auto) Eos # (Auto) Seg Neutrophils % 78.7 H Seg Neuts % (Manual) Baso # (Auto) Lymphocytes % (Manual) Monocytes % (Manual) Eosinophils % (Manual) Basophils % (Manual) Seg Neutrophils # 11.7 H Seg Neutrophils # Man Lymphocytes # (Manual) Monocytes # (Manual) Eosinophils # (Manual) Nucleated RBC % Basophils # (Manual) PT INR APTT Heparin Anti-Xa Level ABG pH POC ABG pO2 ABG pO2 ABG HCO3 ABG O2 Saturation ABG Base Excess POC ABG pCO2 ABG Hemoglobin ABG Oxyhemoglobin ABG Sodium ABG Chloride ABG Glucose Oxyhemoglobin Sodium 148 H Potassium 5.1 H Chloride 107.6 H Carbon Dioxide BUN 27 H Creatinine 0.7 L Glucose 155 H POC Glucose 157 H Lactic Acid Calcium Phosphorus Magnesium AST ALT Lactate Dehydrogenase Total Bilirubin Direct Bilirubin CK-MB (CK-2) C-Reactive Protein NT-Pro-B Natriuret Pep Total Protein Albumin Arterial Blood Glucose Urine WBC (Auto) Urine Creatinine 12/07/19 12/07/19 12/07/19 00:13 05:34 11:33 WBC RBC Hgb Hct MCHC RDW MCV MCH Lymph % (Auto) [place] % (Auto) [place] # Eos # Lymph # (Auto) [place] # (Auto) Eos # (Auto) Seg Neutrophils % Seg Neuts % (Manual) Baso # (Auto) Lymphocytes % (Manual) Monocytes % (Manual) Eosinophils % (Manual) Basophils % (Manual) Seg Neutrophils # Seg Neutrophils # Man Lymphocytes # (Manual) Monocytes # (Manual) Eosinophils # (Manual) Nucleated RBC % Basophils # (Manual) PT INR APTT Heparin Anti-Xa Level ABG pH POC ABG pO2 ABG pO2 ABG HCO3 ABG O2 Saturation ABG Base Excess POC ABG pCO2 ABG Hemoglobin ABG Oxyhemoglobin ABG Sodium ABG Chloride ABG Glucose Oxyhemoglobin Sodium Potassium Chloride Carbon Dioxide BUN Creatinine Glucose POC Glucose 142 H 111 H 169 H Lactic Acid Calcium Phosphorus Magnesium AST ALT Lactate Dehydrogenase Total Bilirubin Direct Bilirubin CK-MB (CK-2) C-Reactive Protein NT-Pro-B Natriuret Pep Total Protein Albumin Arterial Blood Glucose Urine WBC (Auto) Urine Creatinine 12/07/19 12/07/19 12/07/19 12:41 13:25 18:19 WBC 12.4 H RBC 3.53 L Hgb 10.2 L Hct 32.1 L MCHC RDW 15.3 H MCV MCH Lymph % (Auto) 10.6 L [place] % (Auto) 7.8 H [place] # 1.0 H Eos # Lymph # (Auto) [place] # (Auto) Eos # (Auto) Seg Neutrophils % 77.6 H Seg Neuts % (Manual) Baso # (Auto) Lymphocytes % (Manual) Monocytes % (Manual) Eosinophils % (Manual) Basophils % (Manual) Seg Neutrophils # 9.6 H Seg Neutrophils # Man Lymphocytes # (Manual) Monocytes # (Manual) Eosinophils # (Manual) Nucleated RBC % Basophils # (Manual) PT INR APTT Heparin Anti-Xa Level ABG pH POC ABG pO2 ABG pO2 ABG HCO3 ABG O2 Saturation ABG Base Excess POC ABG pCO2 ABG Hemoglobin ABG Oxyhemoglobin ABG Sodium ABG Chloride ABG Glucose Oxyhemoglobin Sodium 149 H Potassium Chloride 108.4 H Carbon Dioxide BUN 26 H Creatinine 0.6 L Glucose 149 H POC Glucose 164 H Lactic Acid Calcium Phosphorus Magnesium 2.60 H AST 121 H ALT 145 H Lactate Dehydrogenase Total Bilirubin Direct Bilirubin CK-MB (CK-2) C-Reactive Protein NT-Pro-B Natriuret Pep Total Protein Albumin 2.6 L Arterial Blood Glucose Urine WBC (Auto) Urine Creatinine 12/07/19 12/08/19 12/08/19 22:25 00:02 03:55 WBC 13.3 H RBC 3.40 L Hgb 9.7 L Hct 30.8 L MCHC 31 L RDW 15.5 H MCV MCH Lymph % (Auto) [place] % (Auto) 8.1 H [place] # 1.1 H Eos # Lymph # (Auto) [place] # (Auto) Eos # (Auto) Seg Neutrophils % 73.0 H Seg Neuts % (Manual) Baso # (Auto) Lymphocytes % (Manual) Monocytes % (Manual) Eosinophils % (Manual) Basophils % (Manual) Seg Neutrophils # 9.7 H Seg Neutrophils # Man Lymphocytes # (Manual) Monocytes # (Manual) Eosinophils # (Manual) Nucleated RBC % Basophils # (Manual) PT INR APTT Heparin Anti-Xa Level 0.12 L ABG pH POC ABG pO2 ABG pO2 ABG HCO3 ABG O2 Saturation ABG Base Excess POC ABG pCO2 ABG Hemoglobin ABG Oxyhemoglobin ABG Sodium ABG Chloride ABG Glucose Oxyhemoglobin Sodium Potassium Chloride Carbon Dioxide BUN Creatinine Glucose POC Glucose 151 H Lactic Acid Calcium Phosphorus Magnesium AST ALT Lactate Dehydrogenase Total Bilirubin Direct Bilirubin CK-MB (CK-2) C-Reactive Protein NT-Pro-B Natriuret Pep Total Protein Albumin Arterial Blood Glucose Urine WBC (Auto) Urine Creatinine 12/08/19 12/08/19 12/08/19 03:55 05:21 06:01 WBC RBC Hgb Hct MCHC RDW MCV MCH Lymph % (Auto) [place] % (Auto) [place] # Eos # Lymph # (Auto) [place] # (Auto) Eos # (Auto) Seg Neutrophils % Seg Neuts % (Manual) Baso # (Auto) Lymphocytes % (Manual) Monocytes % (Manual) Eosinophils % (Manual) Basophils % (Manual) Seg Neutrophils # Seg Neutrophils # Man Lymphocytes # (Manual) Monocytes # (Manual) Eosinophils # (Manual) Nucleated RBC % Basophils # (Manual) PT INR APTT Heparin Anti-Xa Level 0.20 L ABG pH POC ABG pO2 ABG pO2 ABG HCO3 ABG O2 Saturation ABG Base Excess POC ABG pCO2 ABG Hemoglobin ABG Oxyhemoglobin ABG Sodium ABG Chloride ABG Glucose Oxyhemoglobin Sodium 149 H Potassium Chloride 108.0 H Carbon Dioxide BUN 28 H Creatinine 0.6 L Glucose 144 H POC Glucose 143 H Lactic Acid Calcium Phosphorus Magnesium AST 98 H ALT 145 H Lactate Dehydrogenase Total Bilirubin Direct Bilirubin CK-MB (CK-2) C-Reactive Protein NT-Pro-B Natriuret Pep Total Protein 6.0 L Albumin 2.4 L Arterial Blood Glucose Urine WBC (Auto) Urine Creatinine 12/08/19 12/08/19 12/08/19 12:08 18:11 23:53 WBC RBC Hgb Hct MCHC RDW MCV MCH Lymph % (Auto) [place] % (Auto) [place] # Eos # Lymph # (Auto) [place] # (Auto) Eos # (Auto) Seg Neutrophils % Seg Neuts % (Manual) Baso # (Auto) Lymphocytes % (Manual) Monocytes % (Manual) Eosinophils % (Manual) Basophils % (Manual) Seg Neutrophils # Seg Neutrophils # Man Lymphocytes # (Manual) Monocytes # (Manual) Eosinophils # (Manual) Nucleated RBC % Basophils # (Manual) PT INR APTT Heparin Anti-Xa Level ABG pH POC ABG pO2 ABG pO2 ABG HCO3 ABG O2 Saturation ABG Base Excess POC ABG pCO2 ABG Hemoglobin ABG Oxyhemoglobin ABG Sodium ABG Chloride ABG Glucose Oxyhemoglobin Sodium Potassium Chloride Carbon Dioxide BUN Creatinine Glucose POC Glucose 172 H 122 H 162 H Lactic Acid Calcium Phosphorus Magnesium AST ALT Lactate Dehydrogenase Total Bilirubin Direct Bilirubin CK-MB (CK-2) C-Reactive Protein NT-Pro-B Natriuret Pep Total Protein Albumin Arterial Blood Glucose Urine WBC (Auto) Urine Creatinine 12/09/19 12/09/19 12/09/19 04:03 04:03 05:53 WBC RBC Hgb 9.1 L Hct 28.9 L MCHC RDW MCV MCH Lymph % (Auto) [place] % (Auto) [place] # Eos # Lymph # (Auto) [place] # (Auto) Eos # (Auto) Seg Neutrophils % Seg Neuts % (Manual) Baso # (Auto) Lymphocytes % (Manual) Monocytes % (Manual) Eosinophils % (Manual) Basophils % (Manual) Seg Neutrophils # Seg Neutrophils # Man Lymphocytes # (Manual) Monocytes # (Manual) Eosinophils # (Manual) Nucleated RBC % Basophils # (Manual) PT INR APTT Heparin Anti-Xa Level 0.15 L ABG pH POC ABG pO2 ABG pO2 ABG HCO3 ABG O2 Saturation ABG Base Excess POC ABG pCO2 ABG Hemoglobin ABG Oxyhemoglobin ABG Sodium ABG Chloride ABG Glucose Oxyhemoglobin Sodium Potassium Chloride Carbon Dioxide BUN Creatinine Glucose POC Glucose 124 H Lactic Acid Calcium Phosphorus Magnesium AST ALT Lactate Dehydrogenase Total Bilirubin Direct Bilirubin CK-MB (CK-2) C-Reactive Protein NT-Pro-B Natriuret Pep Total Protein Albumin Arterial Blood Glucose Urine WBC (Auto) Urine Creatinine 12/09/19 12/09/19 12/10/19 09:43 12:41 00:13 WBC RBC Hgb Hct MCHC RDW MCV MCH Lymph % (Auto) [place] % (Auto) [place] # Eos # Lymph # (Auto) [place] # (Auto) Eos # (Auto) Seg Neutrophils % Seg Neuts % (Manual) Baso # (Auto) Lymphocytes % (Manual) Monocytes % (Manual) Eosinophils % (Manual) Basophils % (Manual) Seg Neutrophils # Seg Neutrophils # Man Lymphocytes # (Manual) Monocytes # (Manual) Eosinophils # (Manual) Nucleated RBC % Basophils # (Manual) PT INR APTT Heparin Anti-Xa Level ABG pH POC ABG pO2 ABG pO2 ABG HCO3 ABG O2 Saturation ABG Base Excess POC ABG pCO2 ABG Hemoglobin ABG Oxyhemoglobin ABG Sodium ABG Chloride ABG Glucose Oxyhemoglobin Sodium Potassium Chloride Carbon Dioxide BUN 25 H Creatinine 0.6 L Glucose 131 H POC Glucose 109 H 120 H Lactic Acid Calcium Phosphorus Magnesium AST ALT Lactate Dehydrogenase Total Bilirubin Direct Bilirubin CK-MB (CK-2) C-Reactive Protein NT-Pro-B Natriuret Pep Total Protein Albumin Arterial Blood Glucose Urine WBC (Auto) Urine Creatinine 12/10/19 12/10/19 12/10/19 04:14 04:14 12:00 WBC 13.3 H RBC 3.34 L Hgb 9.6 L Hct 30.4 L MCHC RDW 15.4 H MCV MCH Lymph % (Auto) [place] % (Auto) [place] # Eos # Lymph # (Auto) [place] # (Auto) Eos # (Auto) Seg Neutrophils % Seg Neuts % (Manual) 75.0 H Baso # (Auto) Lymphocytes % (Manual) 13.0 L Monocytes % (Manual) 8.0 H Eosinophils % (Manual) Basophils % (Manual) 2.0 H Seg Neutrophils # Seg Neutrophils # Man 10.0 H Lymphocytes # (Manual) Monocytes # (Manual) 1.1 H Eosinophils # (Manual) Nucleated RBC % Basophils # (Manual) 0.3 H PT INR APTT Heparin Anti-Xa Level ABG pH POC ABG pO2 ABG pO2 ABG HCO3 ABG O2 Saturation ABG Base Excess POC ABG pCO2 ABG Hemoglobin ABG Oxyhemoglobin ABG Sodium ABG Chloride ABG Glucose Oxyhemoglobin Sodium 147 H Potassium Chloride 108.3 H Carbon Dioxide BUN 21 H Creatinine 0.6 L Glucose 104 H POC Glucose 133 H Lactic Acid Calcium Phosphorus Magnesium AST ALT Lactate Dehydrogenase Total Bilirubin Direct Bilirubin CK-MB (CK-2) C-Reactive Protein NT-Pro-B Natriuret Pep Total Protein Albumin Arterial Blood Glucose Urine WBC (Auto) Urine Creatinine 12/10/19 12/10/19 12/11/19 18:44 21:20 00:08 WBC 14.9 H RBC 3.36 L Hgb 9.6 L Hct 30.5 L MCHC RDW 15.4 H MCV MCH Lymph % (Auto) [place] % (Auto) [place] # Eos # Lymph # (Auto) [place] # (Auto) Eos # (Auto) Seg Neutrophils % Seg Neuts % (Manual) Baso # (Auto) Lymphocytes % (Manual) Monocytes % (Manual) Eosinophils % (Manual) Basophils % (Manual) Seg Neutrophils # Seg Neutrophils # Man Lymphocytes # (Manual) Monocytes # (Manual) Eosinophils # (Manual) Nucleated RBC % Basophils # (Manual) PT INR APTT Heparin Anti-Xa Level ABG pH POC ABG pO2 ABG pO2 ABG HCO3 ABG O2 Saturation ABG Base Excess POC ABG pCO2 ABG Hemoglobin ABG Oxyhemoglobin ABG Sodium ABG Chloride ABG Glucose Oxyhemoglobin Sodium Potassium Chloride Carbon Dioxide BUN Creatinine Glucose POC Glucose 119 H 134 H Lactic Acid Calcium Phosphorus Magnesium AST ALT Lactate Dehydrogenase Total Bilirubin Direct Bilirubin CK-MB (CK-2) C-Reactive Protein NT-Pro-B Natriuret Pep Total Protein Albumin Arterial Blood Glucose Urine WBC (Auto) Urine Creatinine 12/11/19 12/11/19 12/11/19 03:54 07:28 08:36 WBC 11.9 H RBC 3.25 L Hgb 9.6 L Hct 29.2 L MCHC RDW 15.7 H MCV MCH Lymph % (Auto) [place] % (Auto) [place] # Eos # Lymph # (Auto) [place] # (Auto) Eos # (Auto) Seg Neutrophils % Seg Neuts % (Manual) Baso # (Auto) Lymphocytes % (Manual) Monocytes % (Manual) Eosinophils % (Manual) Basophils % (Manual) Seg Neutrophils # Seg Neutrophils # Man Lymphocytes # (Manual) Monocytes # (Manual) Eosinophils # (Manual) Nucleated RBC % Basophils # (Manual) PT INR APTT Heparin Anti-Xa Level 0.10 L 0.16 L ABG pH POC ABG pO2 ABG pO2 ABG HCO3 ABG O2 Saturation ABG Base Excess POC ABG pCO2 ABG Hemoglobin ABG Oxyhemoglobin ABG Sodium ABG Chloride ABG Glucose Oxyhemoglobin Sodium Potassium Chloride Carbon Dioxide BUN Creatinine Glucose POC Glucose Lactic Acid Calcium Phosphorus Magnesium AST ALT Lactate Dehydrogenase Total Bilirubin Direct Bilirubin CK-MB (CK-2) C-Reactive Protein NT-Pro-B Natriuret Pep Total Protein Albumin Arterial Blood Glucose Urine WBC (Auto) Urine Creatinine 12/11/19 12/11/19 12/11/19 08:36 11:45 17:15 WBC RBC Hgb Hct MCHC RDW MCV MCH Lymph % (Auto) [place] % (Auto) [place] # Eos # Lymph # (Auto) [place] # (Auto) Eos # (Auto) Seg Neutrophils % Seg Neuts % (Manual) Baso # (Auto) Lymphocytes % (Manual) Monocytes % (Manual) Eosinophils % (Manual) Basophils % (Manual) Seg Neutrophils # Seg Neutrophils # Man Lymphocytes # (Manual) Monocytes # (Manual) Eosinophils # (Manual) Nucleated RBC % Basophils # (Manual) PT INR APTT Heparin Anti-Xa Level ABG pH POC ABG pO2 ABG pO2 ABG HCO3 ABG O2 Saturation ABG Base Excess POC ABG pCO2 ABG Hemoglobin ABG Oxyhemoglobin ABG Sodium ABG Chloride ABG Glucose Oxyhemoglobin Sodium Potassium Chloride Carbon Dioxide BUN Creatinine 0.5 L Glucose 128 H POC Glucose 136 H 109 H Lactic Acid Calcium Phosphorus Magnesium AST ALT Lactate Dehydrogenase Total Bilirubin Direct Bilirubin CK-MB (CK-2) C-Reactive Protein NT-Pro-B Natriuret Pep Total Protein Albumin Arterial Blood Glucose Urine WBC (Auto) Urine Creatinine 12/12/19 12/12/19 12/12/19 00:03 05:53 05:53 WBC RBC Hgb 8.8 L Hct 27.6 L MCHC RDW MCV MCH Lymph % (Auto) [place] % (Auto) [place] # Eos # Lymph # (Auto) [place] # (Auto) Eos # (Auto) Seg Neutrophils % Seg Neuts % (Manual) Baso # (Auto) Lymphocytes % (Manual) Monocytes % (Manual) Eosinophils % (Manual) Basophils % (Manual) Seg Neutrophils # Seg Neutrophils # Man Lymphocytes # (Manual) Monocytes # (Manual) Eosinophils # (Manual) Nucleated RBC % Basophils # (Manual) PT INR APTT Heparin Anti-Xa Level 0.22 L ABG pH POC ABG pO2 ABG pO2 ABG HCO3 ABG O2 Saturation ABG Base Excess POC ABG pCO2 ABG Hemoglobin ABG Oxyhemoglobin ABG Sodium ABG Chloride ABG Glucose Oxyhemoglobin Sodium Potassium Chloride Carbon Dioxide BUN Creatinine Glucose POC Glucose 116 H Lactic Acid Calcium Phosphorus Magnesium AST ALT Lactate Dehydrogenase Total Bilirubin Direct Bilirubin CK-MB (CK-2) C-Reactive Protein NT-Pro-B Natriuret Pep Total Protein Albumin Arterial Blood Glucose Urine WBC (Auto) Urine Creatinine 12/12/19 12/12/19 12/12/19 09:38 12:18 17:44 WBC RBC Hgb Hct MCHC RDW MCV MCH Lymph % (Auto) [place] % (Auto) [place] # Eos # Lymph # (Auto) [place] # (Auto) Eos # (Auto) Seg Neutrophils % Seg Neuts % (Manual) Baso # (Auto) Lymphocytes % (Manual) Monocytes % (Manual) Eosinophils % (Manual) Basophils % (Manual) Seg Neutrophils # Seg Neutrophils # Man Lymphocytes # (Manual) Monocytes # (Manual) Eosinophils # (Manual) Nucleated RBC % Basophils # (Manual) PT INR APTT Heparin Anti-Xa Level ABG pH POC ABG pO2 ABG pO2 ABG HCO3 ABG O2 Saturation ABG Base Excess POC ABG pCO2 ABG Hemoglobin ABG Oxyhemoglobin ABG Sodium ABG Chloride ABG Glucose Oxyhemoglobin Sodium Potassium Chloride Carbon Dioxide BUN Creatinine Glucose POC Glucose 115 H 146 H 146 H Lactic Acid Calcium Phosphorus Magnesium AST ALT Lactate Dehydrogenase Total Bilirubin Direct Bilirubin CK-MB (CK-2) C-Reactive Protein NT-Pro-B Natriuret Pep Total Protein Albumin Arterial Blood Glucose Urine WBC (Auto) Urine Creatinine 12/12/19 12/13/19 12/13/19 23:33 05:32 05:32 WBC 13.1 H RBC 3.27 L Hgb 9.5 L Hct 29.3 L MCHC RDW 15.6 H MCV MCH Lymph % (Auto) [place] % (Auto) [place] # Eos # Lymph # (Auto) [place] # (Auto) Eos # (Auto) Seg Neutrophils % Seg Neuts % (Manual) 74.0 H Baso # (Auto) Lymphocytes % (Manual) 8.0 L Monocytes % (Manual) 9.0 H Eosinophils % (Manual) 5.0 H Basophils % (Manual) Seg Neutrophils # Seg Neutrophils # Man 9.7 H Lymphocytes # (Manual) 1.0 L Monocytes # (Manual) 1.2 H Eosinophils # (Manual) 0.7 H Nucleated RBC % Basophils # (Manual) PT INR APTT Heparin Anti-Xa Level 0.20 L ABG pH POC ABG pO2 ABG pO2 ABG HCO3 ABG O2 Saturation ABG Base Excess POC ABG pCO2 ABG Hemoglobin ABG Oxyhemoglobin ABG Sodium ABG Chloride ABG Glucose Oxyhemoglobin Sodium Potassium Chloride Carbon Dioxide BUN Creatinine Glucose POC Glucose 126 H Lactic Acid Calcium Phosphorus Magnesium AST ALT Lactate Dehydrogenase Total Bilirubin Direct Bilirubin CK-MB (CK-2) C-Reactive Protein NT-Pro-B Natriuret Pep Total Protein Albumin Arterial Blood Glucose Urine WBC (Auto) Urine Creatinine 12/13/19 12/13/19 12/13/19 05:32 05:46 11:57 WBC RBC Hgb Hct MCHC RDW MCV MCH Lymph % (Auto) [place] % (Auto) [place] # Eos # Lymph # (Auto) [place] # (Auto) Eos # (Auto) Seg Neutrophils % Seg Neuts % (Manual) Baso # (Auto) Lymphocytes % (Manual) Monocytes % (Manual) Eosinophils % (Manual) Basophils % (Manual) Seg Neutrophils # Seg Neutrophils # Man Lymphocytes # (Manual) Monocytes # (Manual) Eosinophils # (Manual) Nucleated RBC % Basophils # (Manual) PT INR APTT Heparin Anti-Xa Level ABG pH POC ABG pO2 ABG pO2 ABG HCO3 ABG O2 Saturation ABG Base Excess POC ABG pCO2 ABG Hemoglobin ABG Oxyhemoglobin ABG Sodium ABG Chloride ABG Glucose Oxyhemoglobin Sodium Potassium Chloride Carbon Dioxide 31 H BUN Creatinine 0.6 L Glucose 114 H POC Glucose 118 H 133 H Lactic Acid Calcium Phosphorus Magnesium AST ALT Lactate Dehydrogenase Total Bilirubin Direct Bilirubin CK-MB (CK-2) C-Reactive Protein NT-Pro-B Natriuret Pep Total Protein Albumin Arterial Blood Glucose Urine WBC (Auto) Urine Creatinine 12/13/19 12/13/19 12/14/19 17:44 23:46 05:32 WBC RBC Hgb Hct MCHC RDW MCV MCH Lymph % (Auto) [place] % (Auto) [place] # Eos # Lymph # (Auto) [place] # (Auto) Eos # (Auto) Seg Neutrophils % Seg Neuts % (Manual) Baso # (Auto) Lymphocytes % (Manual) Monocytes % (Manual) Eosinophils % (Manual) Basophils % (Manual) Seg Neutrophils # Seg Neutrophils # Man Lymphocytes # (Manual) Monocytes # (Manual) Eosinophils # (Manual) Nucleated RBC % Basophils # (Manual) PT INR APTT Heparin Anti-Xa Level ABG pH POC ABG pO2 ABG pO2 ABG HCO3 ABG O2 Saturation ABG Base Excess POC ABG pCO2 ABG Hemoglobin ABG Oxyhemoglobin ABG Sodium ABG Chloride ABG Glucose Oxyhemoglobin Sodium Potassium Chloride Carbon Dioxide BUN Creatinine Glucose POC Glucose 161 H 126 H 139 H Lactic Acid Calcium Phosphorus Magnesium AST ALT Lactate Dehydrogenase Total Bilirubin Direct Bilirubin CK-MB (CK-2) C-Reactive Protein NT-Pro-B Natriuret Pep Total Protein Albumin Arterial Blood Glucose Urine WBC (Auto) Urine Creatinine 12/14/19 12/14/19 12/14/19 06:03 06:03 09:37 WBC RBC Hgb 9.6 L Hct 30.4 L MCHC RDW MCV MCH Lymph % (Auto) [place] % (Auto) [place] # Eos # Lymph # (Auto) [place] # (Auto) Eos # (Auto) Seg Neutrophils % Seg Neuts % (Manual) Baso # (Auto) Lymphocytes % (Manual) Monocytes % (Manual) Eosinophils % (Manual) Basophils % (Manual) Seg Neutrophils # Seg Neutrophils # Man Lymphocytes # (Manual) Monocytes # (Manual) Eosinophils # (Manual) Nucleated RBC % Basophils # (Manual) PT INR APTT Heparin Anti-Xa Level 0.24 L ABG pH POC ABG pO2 ABG pO2 ABG HCO3 ABG O2 Saturation ABG Base Excess POC ABG pCO2 ABG Hemoglobin ABG Oxyhemoglobin ABG Sodium ABG Chloride ABG Glucose Oxyhemoglobin Sodium Potassium Chloride Carbon Dioxide BUN Creatinine 0.6 L Glucose 162 H POC Glucose Lactic Acid Calcium Phosphorus Magnesium AST 71 H ALT 118 H Lactate Dehydrogenase Total Bilirubin Direct Bilirubin CK-MB (CK-2) C-Reactive Protein NT-Pro-B Natriuret Pep Total Protein 6.2 L Albumin 2.3 L Arterial Blood Glucose Urine WBC (Auto) Urine Creatinine 12/14/19 12/14/19 12/15/19 12:06 18:18 00:19 WBC RBC Hgb Hct MCHC RDW MCV MCH Lymph % (Auto) [place] % (Auto) Payette # Eos # Lymph # (Auto) [place] # (Auto) Eos # (Auto) Seg Neutrophils % Seg Neuts % (Manual) Baso # (Auto) Lymphocytes % (Manual) Monocytes % (Manual) Eosinophils % (Manual) Basophils % (Manual) Seg Neutrophils # Seg Neutrophils # Man Lymphocytes # (Manual) Monocytes # (Manual) Eosinophils # (Manual) Nucleated RBC % Basophils # (Manual) PT INR APTT Heparin Anti-Xa Level ABG pH POC ABG pO2 ABG pO2 ABG HCO3 ABG O2 Saturation ABG Base Excess POC ABG pCO2 ABG Hemoglobin ABG Oxyhemoglobin ABG Sodium ABG Chloride ABG Glucose Oxyhemoglobin Sodium Potassium Chloride Carbon Dioxide BUN Creatinine Glucose POC Glucose 147 H 166 H 123 H Lactic Acid Calcium Phosphorus Magnesium AST ALT Lactate Dehydrogenase Total Bilirubin Direct Bilirubin CK-MB (CK-2) C-Reactive Protein NT-Pro-B Natriuret Pep Total Protein Albumin Arterial Blood Glucose Urine WBC (Auto) Urine Creatinine 12/15/19 12/15/19 12/15/19 05:28 05:29 05:29 WBC 14.9 H RBC 3.19 L Hgb 9.1 L Hct 28.7 L MCHC RDW 16.0 H MCV MCH Lymph % (Auto) [place] % (Auto) [place] # Eos # Lymph # (Auto) [place] # (Auto) Eos # (Auto) Seg Neutrophils % Seg Neuts % (Manual) Baso # (Auto) Lymphocytes % (Manual) Monocytes % (Manual) Eosinophils % (Manual) Basophils % (Manual) Seg Neutrophils # Seg Neutrophils # Man Lymphocytes # (Manual) Monocytes # (Manual) Eosinophils # (Manual) Nucleated RBC % Basophils # (Manual) PT INR APTT Heparin Anti-Xa Level 0.19 L ABG pH POC ABG pO2 ABG pO2 ABG HCO3 ABG O2 Saturation ABG Base Excess POC ABG pCO2 ABG Hemoglobin ABG Oxyhemoglobin ABG Sodium ABG Chloride ABG Glucose Oxyhemoglobin Sodium Potassium Chloride Carbon Dioxide BUN Creatinine 0.6 L Glucose 110 H POC Glucose Lactic Acid Calcium Phosphorus Magnesium AST ALT Lactate Dehydrogenase Total Bilirubin Direct Bilirubin CK-MB (CK-2) C-Reactive Protein NT-Pro-B Natriuret Pep Total Protein Albumin Arterial Blood Glucose Urine WBC (Auto) Urine Creatinine 12/15/19 12/15/19 12/15/19 05:53 11:50 17:26 WBC RBC Hgb Hct MCHC RDW MCV MCH Lymph % (Auto) [place] % (Auto) [place] # Eos # Lymph # (Auto) [place] # (Auto) Eos # (Auto) Seg Neutrophils % Seg Neuts % (Manual) Baso # (Auto) Lymphocytes % (Manual) Monocytes % (Manual) Eosinophils % (Manual) Basophils % (Manual) Seg Neutrophils # Seg Neutrophils # Man Lymphocytes # (Manual) Monocytes # (Manual) Eosinophils # (Manual) Nucleated RBC % Basophils # (Manual) PT INR APTT Heparin Anti-Xa Level ABG pH POC ABG pO2 ABG pO2 ABG HCO3 ABG O2 Saturation ABG Base Excess POC ABG pCO2 ABG Hemoglobin ABG Oxyhemoglobin ABG Sodium ABG Chloride ABG Glucose Oxyhemoglobin Sodium Potassium Chloride Carbon Dioxide BUN Creatinine Glucose POC Glucose 119 H 132 H 128 H Lactic Acid Calcium Phosphorus Magnesium AST ALT Lactate Dehydrogenase Total Bilirubin Direct Bilirubin CK-MB (CK-2) C-Reactive Protein NT-Pro-B Natriuret Pep Total Protein Albumin Arterial Blood Glucose Urine WBC (Auto) Urine Creatinine 12/15/19 12/16/19 12/16/19 23:11 05:30 05:46 WBC RBC Hgb 8.8 L Hct 27.9 L MCHC RDW MCV MCH Lymph % (Auto) [place] % (Auto) [place] # Eos # Lymph # (Auto) [place] # (Auto) Eos # (Auto) Seg Neutrophils % Seg Neuts % (Manual) Baso # (Auto) Lymphocytes % (Manual) Monocytes % (Manual) Eosinophils % (Manual) Basophils % (Manual) Seg Neutrophils # Seg Neutrophils # Man Lymphocytes # (Manual) Monocytes # (Manual) Eosinophils # (Manual) Nucleated RBC % Basophils # (Manual) PT INR APTT Heparin Anti-Xa Level ABG pH POC ABG pO2 ABG pO2 ABG HCO3 ABG O2 Saturation ABG Base Excess POC ABG pCO2 ABG Hemoglobin ABG Oxyhemoglobin ABG Sodium ABG Chloride ABG Glucose Oxyhemoglobin Sodium Potassium Chloride Carbon Dioxide BUN Creatinine Glucose POC Glucose 150 H 134 H Lactic Acid Calcium Phosphorus Magnesium AST ALT Lactate Dehydrogenase Total Bilirubin Direct Bilirubin CK-MB (CK-2) C-Reactive Protein NT-Pro-B Natriuret Pep Total Protein Albumin Arterial Blood Glucose Urine WBC (Auto) Urine Creatinine 12/16/19 12/16/19 12/16/19 05:46 05:46 11:44 WBC RBC Hgb Hct MCHC RDW MCV MCH Lymph % (Auto) [place] % (Auto) [place] # Eos # Lymph # (Auto) [place] # (Auto) Eos # (Auto) Seg Neutrophils % Seg Neuts % (Manual) Baso # (Auto) Lymphocytes % (Manual) Monocytes % (Manual) Eosinophils % (Manual) Basophils % (Manual) Seg Neutrophils # Seg Neutrophils # Man Lymphocytes # (Manual) Monocytes # (Manual) Eosinophils # (Manual) Nucleated RBC % Basophils # (Manual) PT INR APTT Heparin Anti-Xa Level 0.20 L ABG pH POC ABG pO2 ABG pO2 ABG HCO3 ABG O2 Saturation ABG Base Excess POC ABG pCO2 ABG Hemoglobin ABG Oxyhemoglobin ABG Sodium ABG Chloride ABG Glucose Oxyhemoglobin Sodium Potassium Chloride Carbon Dioxide 31 H BUN Creatinine 0.5 L Glucose 147 H POC Glucose 164 H Lactic Acid Calcium Phosphorus Magnesium AST ALT Lactate Dehydrogenase Total Bilirubin Direct Bilirubin CK-MB (CK-2) C-Reactive Protein NT-Pro-B Natriuret Pep Total Protein Albumin Arterial Blood Glucose Urine WBC (Auto) Urine Creatinine 12/16/19 12/16/19 12/17/19 17:17 23:49 05:30 WBC 13.9 H RBC 3.27 L Hgb 9.4 L Hct 29.2 L MCHC RDW 16.0 H MCV MCH Lymph % (Auto) [place] % (Auto) 8.8 H [place] # Eos # Lymph # (Auto) [place] # (Auto) 1.2 H Eos # (Auto) 0.5 H Seg Neutrophils % 70.5 H Seg Neuts % (Manual) Baso # (Auto) 0.2 H Lymphocytes % (Manual) Monocytes % (Manual) Eosinophils % (Manual) Basophils % (Manual) Seg Neutrophils # 9.8 H Seg Neutrophils # Man Lymphocytes # (Manual) Monocytes # (Manual) Eosinophils # (Manual) Nucleated RBC % Basophils # (Manual) PT INR APTT Heparin Anti-Xa Level ABG pH POC ABG pO2 ABG pO2 ABG HCO3 ABG O2 Saturation ABG Base Excess POC ABG pCO2 ABG Hemoglobin ABG Oxyhemoglobin ABG Sodium ABG Chloride ABG Glucose Oxyhemoglobin Sodium Potassium Chloride Carbon Dioxide BUN Creatinine Glucose POC Glucose 162 H 144 H Lactic Acid Calcium Phosphorus Magnesium AST ALT Lactate Dehydrogenase Total Bilirubin Direct Bilirubin CK-MB (CK-2) C-Reactive Protein NT-Pro-B Natriuret Pep Total Protein Albumin Arterial Blood Glucose Urine WBC (Auto) Urine Creatinine 12/17/19 12/17/19 12/17/19 05:30 06:06 11:50 WBC RBC Hgb Hct MCHC RDW MCV MCH Lymph % (Auto) [place] % (Auto) [place] # Eos # Lymph # (Auto) [place] # (Auto) Eos # (Auto) Seg Neutrophils % Seg Neuts % (Manual) Baso # (Auto) Lymphocytes % (Manual) Monocytes % (Manual) Eosinophils % (Manual) Basophils % (Manual) Seg Neutrophils # Seg Neutrophils # Man Lymphocytes # (Manual) Monocytes # (Manual) Eosinophils # (Manual) Nucleated RBC % Basophils # (Manual) PT INR APTT Heparin Anti-Xa Level ABG pH POC ABG pO2 ABG pO2 ABG HCO3 ABG O2 Saturation ABG Base Excess POC ABG pCO2 ABG Hemoglobin ABG Oxyhemoglobin ABG Sodium ABG Chloride ABG Glucose Oxyhemoglobin Sodium Potassium Chloride 97.4 L Carbon Dioxide 32 H BUN Creatinine 0.5 L Glucose 135 H POC Glucose 151 H 140 H Lactic Acid Calcium Phosphorus Magnesium AST ALT Lactate Dehydrogenase Total Bilirubin Direct Bilirubin CK-MB (CK-2) C-Reactive Protein NT-Pro-B Natriuret Pep Total Protein Albumin Arterial Blood Glucose Urine WBC (Auto) Urine Creatinine 12/17/19 12/17/19 12/18/19 17:50 23:46 05:17 WBC RBC Hgb 8.8 L Hct 28.0 L MCHC RDW MCV MCH Lymph % (Auto) [place] % (Auto) [place] # Eos # Lymph # (Auto) [place] # (Auto) Eos # (Auto) Seg Neutrophils % Seg Neuts % (Manual) Baso # (Auto) Lymphocytes % (Manual) Monocytes % (Manual) Eosinophils % (Manual) Basophils % (Manual) Seg Neutrophils # Seg Neutrophils # Man Lymphocytes # (Manual) Monocytes # (Manual) Eosinophils # (Manual) Nucleated RBC % Basophils # (Manual) PT INR APTT Heparin Anti-Xa Level ABG pH POC ABG pO2 ABG pO2 ABG HCO3 ABG O2 Saturation ABG Base Excess POC ABG pCO2 ABG Hemoglobin ABG Oxyhemoglobin ABG Sodium ABG Chloride ABG Glucose Oxyhemoglobin Sodium Potassium Chloride Carbon Dioxide BUN Creatinine Glucose POC Glucose 158 H 150 H Lactic Acid Calcium Phosphorus Magnesium AST ALT Lactate Dehydrogenase Total Bilirubin Direct Bilirubin CK-MB (CK-2) C-Reactive Protein NT-Pro-B Natriuret Pep Total Protein Albumin Arterial Blood Glucose Urine WBC (Auto) Urine Creatinine 12/18/19 12/18/19 12/18/19 05:17 05:49 11:12 WBC RBC Hgb Hct MCHC RDW MCV MCH Lymph % (Auto) [place] % (Auto) [place] # Eos # Lymph # (Auto) [place] # (Auto) Eos # (Auto) Seg Neutrophils % Seg Neuts % (Manual) Baso # (Auto) Lymphocytes % (Manual) Monocytes % (Manual) Eosinophils % (Manual) Basophils % (Manual) Seg Neutrophils # Seg Neutrophils # Man Lymphocytes # (Manual) Monocytes # (Manual) Eosinophils # (Manual) Nucleated RBC % Basophils # (Manual) PT INR APTT Heparin Anti-Xa Level 0.16 L ABG pH POC ABG pO2 ABG pO2 ABG HCO3 ABG O2 Saturation ABG Base Excess POC ABG pCO2 ABG Hemoglobin ABG Oxyhemoglobin ABG Sodium ABG Chloride ABG Glucose Oxyhemoglobin Sodium Potassium Chloride Carbon Dioxide BUN Creatinine Glucose POC Glucose 127 H 191 H Lactic Acid Calcium Phosphorus Magnesium AST ALT Lactate Dehydrogenase Total Bilirubin Direct Bilirubin CK-MB (CK-2) C-Reactive Protein NT-Pro-B Natriuret Pep Total Protein Albumin Arterial Blood Glucose Urine WBC (Auto) Urine Creatinine 12/18/19 12/18/19 12/19/19 17:03 20:16 00:08 WBC RBC Hgb Hct MCHC RDW MCV MCH Lymph % (Auto) [place] % (Auto) [place] # Eos # Lymph # (Auto) [place] # (Auto) Eos # (Auto) Seg Neutrophils % Seg Neuts % (Manual) Baso # (Auto) Lymphocytes % (Manual) Monocytes % (Manual) Eosinophils % (Manual) Basophils % (Manual) Seg Neutrophils # Seg Neutrophils # Man Lymphocytes # (Manual) Monocytes # (Manual) Eosinophils # (Manual) Nucleated RBC % Basophils # (Manual) PT INR APTT Heparin Anti-Xa Level ABG pH POC ABG pO2 ABG pO2 ABG HCO3 ABG O2 Saturation ABG Base Excess POC ABG pCO2 ABG Hemoglobin ABG Oxyhemoglobin ABG Sodium ABG Chloride ABG Glucose Oxyhemoglobin Sodium Potassium Chloride Carbon Dioxide BUN Creatinine Glucose POC Glucose 133 H 128 H 129 H Lactic Acid Calcium Phosphorus Magnesium AST ALT Lactate Dehydrogenase Total Bilirubin Direct Bilirubin CK-MB (CK-2) C-Reactive Protein NT-Pro-B Natriuret Pep Total Protein Albumin Arterial Blood Glucose Urine WBC (Auto) Urine Creatinine 12/19/19 12/19/19 12/19/19 04:45 04:45 05:35 WBC RBC Hgb Hct MCHC RDW MCV MCH Lymph % (Auto) [place] % (Auto) [place] # Eos # Lymph # (Auto) [place] # (Auto) Eos # (Auto) Seg Neutrophils % Seg Neuts % (Manual) Baso # (Auto) Lymphocytes % (Manual) Monocytes % (Manual) Eosinophils % (Manual) Basophils % (Manual) Seg Neutrophils # Seg Neutrophils # Man Lymphocytes # (Manual) Monocytes # (Manual) Eosinophils # (Manual) Nucleated RBC % Basophils # (Manual) PT INR APTT Heparin Anti-Xa Level 0.17 L ABG pH POC ABG pO2 ABG pO2 ABG HCO3 ABG O2 Saturation ABG Base Excess POC ABG pCO2 ABG Hemoglobin ABG Oxyhemoglobin ABG Sodium ABG Chloride ABG Glucose Oxyhemoglobin Sodium Potassium Chloride Carbon Dioxide BUN Creatinine Glucose POC Glucose 120 H Lactic Acid Calcium Phosphorus Magnesium AST ALT Lactate Dehydrogenase 228 H Total Bilirubin Direct Bilirubin CK-MB (CK-2) C-Reactive Protein NT-Pro-B Natriuret Pep Total Protein Albumin Arterial Blood Glucose Urine WBC (Auto) Urine Creatinine 12/19/19 12/19/19 12/19/19 09:20 11:32 11:32 WBC 14.6 H RBC 3.08 L Hgb 9.0 L Hct 26.8 L MCHC RDW 15.9 H MCV MCH Lymph % (Auto) [place] % (Auto) [place] # Eos # Lymph # (Auto) [place] # (Auto) Eos # (Auto) Seg Neutrophils % Seg Neuts % (Manual) 82.0 H Baso # (Auto) Lymphocytes % (Manual) 10.0 L Monocytes % (Manual) Eosinophils % (Manual) Basophils % (Manual) Seg Neutrophils # Seg Neutrophils # Man 12.0 H Lymphocytes # (Manual) Monocytes # (Manual) 0.9 H Eosinophils # (Manual) Nucleated RBC % 1.0 H Basophils # (Manual) PT INR APTT Heparin Anti-Xa Level ABG pH 7.451 H POC ABG pO2 ABG pO2 62.6 L ABG HCO3 33.2 H ABG O2 Saturation 93.8 L ABG Base Excess 8.3 H POC ABG pCO2 ABG Hemoglobin 8.3 L ABG Oxyhemoglobin ABG Sodium ABG Chloride ABG Glucose Oxyhemoglobin 91.9 L Sodium Potassium Chloride 95.0 L Carbon Dioxide 33 H BUN 22 H Creatinine 0.6 L Glucose 150 H POC Glucose Lactic Acid Calcium Phosphorus Magnesium AST ALT Lactate Dehydrogenase Total Bilirubin Direct Bilirubin CK-MB (CK-2) C-Reactive Protein NT-Pro-B Natriuret Pep Total Protein 6.2 L Albumin 2.4 L Arterial Blood Glucose Urine WBC (Auto) Urine Creatinine 12/19/19 12/19/19 12/20/19 11:56 18:17 00:09 WBC RBC Hgb Hct MCHC RDW MCV MCH Lymph % (Auto) [place] % (Auto) [place] # Eos # Lymph # (Auto) [place] # (Auto) Eos # (Auto) Seg Neutrophils % Seg Neuts % (Manual) Baso # (Auto) Lymphocytes % (Manual) Monocytes % (Manual) Eosinophils % (Manual) Basophils % (Manual) Seg Neutrophils # Seg Neutrophils # Man Lymphocytes # (Manual) Monocytes # (Manual) Eosinophils # (Manual) Nucleated RBC % Basophils # (Manual) PT INR APTT Heparin Anti-Xa Level ABG pH POC ABG pO2 ABG pO2 ABG HCO3 ABG O2 Saturation ABG Base Excess POC ABG pCO2 ABG Hemoglobin ABG Oxyhemoglobin ABG Sodium ABG Chloride ABG Glucose Oxyhemoglobin Sodium Potassium Chloride Carbon Dioxide BUN Creatinine Glucose POC Glucose 156 H 156 H 155 H Lactic Acid Calcium Phosphorus Magnesium AST ALT Lactate Dehydrogenase Total Bilirubin Direct Bilirubin CK-MB (CK-2) C-Reactive Protein NT-Pro-B Natriuret Pep Total Protein Albumin Arterial Blood Glucose Urine WBC (Auto) Urine Creatinine 12/20/19 12/20/19 12/20/19 05:26 06:02 18:17 WBC RBC Hgb Hct MCHC RDW MCV MCH Lymph % (Auto) [place] % (Auto) [place] # Eos # Lymph # (Auto) [place] # (Auto) Eos # (Auto) Seg Neutrophils % Seg Neuts % (Manual) Baso # (Auto) Lymphocytes % (Manual) Monocytes % (Manual) Eosinophils % (Manual) Basophils % (Manual) Seg Neutrophils # Seg Neutrophils # Man Lymphocytes # (Manual) Monocytes # (Manual) Eosinophils # (Manual) Nucleated RBC % Basophils # (Manual) PT INR APTT Heparin Anti-Xa Level 0.19 L ABG pH POC ABG pO2 ABG pO2 ABG HCO3 ABG O2 Saturation ABG Base Excess POC ABG pCO2 ABG Hemoglobin ABG Oxyhemoglobin ABG Sodium ABG Chloride ABG Glucose Oxyhemoglobin Sodium Potassium Chloride Carbon Dioxide BUN Creatinine Glucose POC Glucose 137 H 128 H Lactic Acid Calcium Phosphorus Magnesium AST ALT Lactate Dehydrogenase Total Bilirubin Direct Bilirubin CK-MB (CK-2) C-Reactive Protein NT-Pro-B Natriuret Pep Total Protein Albumin Arterial Blood Glucose Urine WBC (Auto) Urine Creatinine 12/20/19 12/21/19 12/21/19 23:34 05:31 05:31 WBC 12.7 H RBC 3.09 L Hgb 8.9 L Hct 27.4 L MCHC RDW 15.8 H MCV MCH Lymph % (Auto) 12.1 L [place] % (Auto) 7.8 H [place] # Eos # Lymph # (Auto) [place] # (Auto) 1.0 H Eos # (Auto) Seg Neutrophils % 77.1 H Seg Neuts % (Manual) Baso # (Auto) Lymphocytes % (Manual) Monocytes % (Manual) Eosinophils % (Manual) Basophils % (Manual) Seg Neutrophils # 9.8 H Seg Neutrophils # Man Lymphocytes # (Manual) Monocytes # (Manual) Eosinophils # (Manual) Nucleated RBC % Basophils # (Manual) PT INR APTT Heparin Anti-Xa Level ABG pH POC ABG pO2 ABG pO2 ABG HCO3 ABG O2 Saturation ABG Base Excess POC ABG pCO2 ABG Hemoglobin ABG Oxyhemoglobin ABG Sodium ABG Chloride ABG Glucose Oxyhemoglobin Sodium Potassium Chloride 96.9 L Carbon Dioxide 37 H BUN 27 H Creatinine 0.7 L Glucose 140 H POC Glucose 145 H Lactic Acid Calcium Phosphorus Magnesium AST ALT Lactate Dehydrogenase Total Bilirubin Direct Bilirubin CK-MB (CK-2) C-Reactive Protein NT-Pro-B Natriuret Pep Total Protein Albumin Arterial Blood Glucose Urine WBC (Auto) Urine Creatinine 12/21/19 12/21/19 12/21/19 05:38 10:13 11:51 WBC RBC Hgb Hct MCHC RDW MCV MCH Lymph % (Auto) [place] % (Auto) [place] # Eos # Lymph # (Auto) [place] # (Auto) Eos # (Auto) Seg Neutrophils % Seg Neuts % (Manual) Baso # (Auto) Lymphocytes % (Manual) Monocytes % (Manual) Eosinophils % (Manual) Basophils % (Manual) Seg Neutrophils # Seg Neutrophils # Man Lymphocytes # (Manual) Monocytes # (Manual) Eosinophils # (Manual) Nucleated RBC % Basophils # (Manual) PT INR APTT 23.9 L Heparin Anti-Xa Level < 0.10 L ABG pH POC ABG pO2 ABG pO2 ABG HCO3 ABG O2 Saturation ABG Base Excess POC ABG pCO2 ABG Hemoglobin ABG Oxyhemoglobin ABG Sodium ABG Chloride ABG Glucose Oxyhemoglobin Sodium Potassium Chloride Carbon Dioxide BUN Creatinine Glucose POC Glucose 151 H 145 H Lactic Acid Calcium Phosphorus Magnesium AST ALT Lactate Dehydrogenase Total Bilirubin Direct Bilirubin CK-MB (CK-2) C-Reactive Protein NT-Pro-B Natriuret Pep Total Protein Albumin Arterial Blood Glucose Urine WBC (Auto) Urine Creatinine 12/21/19 12/22/19 12/22/19 17:16 00:01 01:33 WBC RBC Hgb Hct MCHC RDW MCV MCH Lymph % (Auto) [place] % (Auto) [place] # Eos # Lymph # (Auto) [place] # (Auto) Eos # (Auto) Seg Neutrophils % Seg Neuts % (Manual) Baso # (Auto) Lymphocytes % (Manual) Monocytes % (Manual) Eosinophils % (Manual) Basophils % (Manual) Seg Neutrophils # Seg Neutrophils # Man Lymphocytes # (Manual) Monocytes # (Manual) Eosinophils # (Manual) Nucleated RBC % Basophils # (Manual) PT INR APTT Heparin Anti-Xa Level 0.10 L ABG pH POC ABG pO2 ABG pO2 ABG HCO3 ABG O2 Saturation ABG Base Excess POC ABG pCO2 ABG Hemoglobin ABG Oxyhemoglobin ABG Sodium ABG Chloride ABG Glucose Oxyhemoglobin Sodium Potassium Chloride Carbon Dioxide BUN Creatinine Glucose POC Glucose 167 H 179 H Lactic Acid Calcium Phosphorus Magnesium AST ALT Lactate Dehydrogenase Total Bilirubin Direct Bilirubin CK-MB (CK-2) C-Reactive Protein NT-Pro-B Natriuret Pep Total Protein Albumin Arterial Blood Glucose Urine WBC (Auto) Urine Creatinine 12/22/19 12/22/19 12/22/19 03:22 05:10 05:10 WBC 13.8 H RBC 3.20 L Hgb 8.9 L Hct 28.1 L MCHC RDW 15.9 H MCV MCH Lymph % (Auto) [place] % (Auto) [place] # Eos # Lymph # (Auto) [place] # (Auto) Eos # (Auto) Seg Neutrophils % Seg Neuts % (Manual) Baso # (Auto) Lymphocytes % (Manual) Monocytes % (Manual) Eosinophils % (Manual) Basophils % (Manual) Seg Neutrophils # Seg Neutrophils # Man Lymphocytes # (Manual) Monocytes # (Manual) Eosinophils # (Manual) Nucleated RBC % Basophils # (Manual) PT INR APTT Heparin Anti-Xa Level ABG pH POC ABG pO2 52.3 L ABG pO2 ABG HCO3 ABG O2 Saturation ABG Base Excess POC ABG pCO2 52.9 H ABG Hemoglobin 10.7 L ABG Oxyhemoglobin 84 L ABG Sodium ABG Chloride ABG Glucose Oxyhemoglobin Sodium Potassium Chloride 96.6 L Carbon Dioxide BUN 25 H Creatinine 0.7 L Glucose 129 H POC Glucose Lactic Acid Calcium Phosphorus Magnesium AST ALT Lactate Dehydrogenase Total Bilirubin Direct Bilirubin CK-MB (CK-2) C-Reactive Protein NT-Pro-B Natriuret Pep Total Protein Albumin Arterial Blood Glucose Urine WBC (Auto) Urine Creatinine 12/22/19 12/22/19 12/22/19 05:18 12:32 12:43 WBC RBC Hgb Hct MCHC RDW MCV MCH Lymph % (Auto) [place] % (Auto) [place] # Eos # Lymph # (Auto) [place] # (Auto) Eos # (Auto) Seg Neutrophils % Seg Neuts % (Manual) Baso # (Auto) Lymphocytes % (Manual) Monocytes % (Manual) Eosinophils % (Manual) Basophils % (Manual) Seg Neutrophils # Seg Neutrophils # Man Lymphocytes # (Manual) Monocytes # (Manual) Eosinophils # (Manual) Nucleated RBC % Basophils # (Manual) PT INR APTT Heparin Anti-Xa Level 0.18 L ABG pH POC ABG pO2 ABG pO2 ABG HCO3 ABG O2 Saturation ABG Base Excess POC ABG pCO2 ABG Hemoglobin ABG Oxyhemoglobin ABG Sodium ABG Chloride ABG Glucose Oxyhemoglobin Sodium Potassium Chloride Carbon Dioxide BUN Creatinine Glucose POC Glucose 131 H 208 H Lactic Acid Calcium Phosphorus Magnesium AST ALT Lactate Dehydrogenase Total Bilirubin Direct Bilirubin CK-MB (CK-2) C-Reactive Protein NT-Pro-B Natriuret Pep Total Protein Albumin Arterial Blood Glucose Urine WBC (Auto) Urine Creatinine 12/22/19 12/22/19 12/23/19 17:44 23:20 03:51 WBC 15.2 H RBC 3.43 L Hgb 9.6 L Hct 30.3 L MCHC RDW 15.9 H MCV MCH Lymph % (Auto) [place] % (Auto) [place] # Eos # Lymph # (Auto) [place] # (Auto) Eos # (Auto) Seg Neutrophils % Seg Neuts % (Manual) Baso # (Auto) Lymphocytes % (Manual) Monocytes % (Manual) Eosinophils % (Manual) Basophils % (Manual) Seg Neutrophils # Seg Neutrophils # Man Lymphocytes # (Manual) Monocytes # (Manual) Eosinophils # (Manual) Nucleated RBC % Basophils # (Manual) PT INR APTT Heparin Anti-Xa Level ABG pH POC ABG pO2 ABG pO2 ABG HCO3 ABG O2 Saturation ABG Base Excess POC ABG pCO2 ABG Hemoglobin ABG Oxyhemoglobin ABG Sodium ABG Chloride ABG Glucose Oxyhemoglobin Sodium Potassium Chloride Carbon Dioxide BUN Creatinine Glucose POC Glucose 209 H 119 H Lactic Acid Calcium Phosphorus Magnesium AST ALT Lactate Dehydrogenase Total Bilirubin Direct Bilirubin CK-MB (CK-2) C-Reactive Protein NT-Pro-B Natriuret Pep Total Protein Albumin Arterial Blood Glucose Urine WBC (Auto) Urine Creatinine 12/23/19 12/23/19 12/23/19 03:51 05:31 12:09 WBC RBC Hgb Hct MCHC RDW MCV MCH Lymph % (Auto) [place] % (Auto) [place] # Eos # Lymph # (Auto) [place] # (Auto) Eos # (Auto) Seg Neutrophils % Seg Neuts % (Manual) Baso # (Auto) Lymphocytes % (Manual) Monocytes % (Manual) Eosinophils % (Manual) Basophils % (Manual) Seg Neutrophils # Seg Neutrophils # Man Lymphocytes # (Manual) Monocytes # (Manual) Eosinophils # (Manual) Nucleated RBC % Basophils # (Manual) PT INR APTT Heparin Anti-Xa Level ABG pH POC ABG pO2 ABG pO2 ABG HCO3 ABG O2 Saturation ABG Base Excess POC ABG pCO2 ABG Hemoglobin ABG Oxyhemoglobin ABG Sodium ABG Chloride ABG Glucose Oxyhemoglobin Sodium Potassium Chloride 97.2 L Carbon Dioxide 31 H BUN 23 H Creatinine 0.6 L Glucose 153 H POC Glucose 149 H 144 H Lactic Acid Calcium Phosphorus Magnesium AST ALT Lactate Dehydrogenase Total Bilirubin Direct Bilirubin CK-MB (CK-2) C-Reactive Protein NT-Pro-B Natriuret Pep Total Protein Albumin Arterial Blood Glucose Urine WBC (Auto) Urine Creatinine 12/23/19 12/23/19 12/23/19 15:30 17:49 23:31 WBC RBC Hgb Hct MCHC RDW MCV MCH Lymph % (Auto) [place] % (Auto) [place] # Eos # Lymph # (Auto) [place] # (Auto) Eos # (Auto) Seg Neutrophils % Seg Neuts % (Manual) Baso # (Auto) Lymphocytes % (Manual) Monocytes % (Manual) Eosinophils % (Manual) Basophils % (Manual) Seg Neutrophils # Seg Neutrophils # Man Lymphocytes # (Manual) Monocytes # (Manual) Eosinophils # (Manual) Nucleated RBC % Basophils # (Manual) PT INR APTT Heparin Anti-Xa Level 0.21 L ABG pH POC ABG pO2 ABG pO2 ABG HCO3 ABG O2 Saturation ABG Base Excess POC ABG pCO2 ABG Hemoglobin ABG Oxyhemoglobin ABG Sodium ABG Chloride ABG Glucose Oxyhemoglobin Sodium Potassium Chloride Carbon Dioxide BUN Creatinine Glucose POC Glucose 192 H 151 H Lactic Acid Calcium Phosphorus Magnesium AST ALT Lactate Dehydrogenase Total Bilirubin Direct Bilirubin CK-MB (CK-2) C-Reactive Protein NT-Pro-B Natriuret Pep Total Protein Albumin Arterial Blood Glucose Urine WBC (Auto) Urine Creatinine 12/24/19 12/24/19 12/24/19 05:34 12:13 16:50 WBC RBC Hgb Hct MCHC RDW MCV MCH Lymph % (Auto) [place] % (Auto) [place] # Eos # Lymph # (Auto) [place] # (Auto) Eos # (Auto) Seg Neutrophils % Seg Neuts % (Manual) Baso # (Auto) Lymphocytes % (Manual) Monocytes % (Manual) Eosinophils % (Manual) Basophils % (Manual) Seg Neutrophils # Seg Neutrophils # Man Lymphocytes # (Manual) Monocytes # (Manual) Eosinophils # (Manual) Nucleated RBC % Basophils # (Manual) PT INR APTT Heparin Anti-Xa Level 0.16 L ABG pH POC ABG pO2 ABG pO2 ABG HCO3 ABG O2 Saturation ABG Base Excess POC ABG pCO2 ABG Hemoglobin ABG Oxyhemoglobin ABG Sodium ABG Chloride ABG Glucose Oxyhemoglobin Sodium Potassium Chloride Carbon Dioxide BUN Creatinine Glucose POC Glucose 145 H 124 H Lactic Acid Calcium Phosphorus Magnesium AST ALT Lactate Dehydrogenase Total Bilirubin Direct Bilirubin CK-MB (CK-2) C-Reactive Protein NT-Pro-B Natriuret Pep Total Protein Albumin Arterial Blood Glucose Urine WBC (Auto) Urine Creatinine 12/24/19 12/25/19 12/25/19 17:53 00:14 04:18 WBC 12.9 H RBC 3.30 L Hgb 9.1 L Hct 28.8 L MCHC RDW 16.4 H MCV MCH Lymph % (Auto) [place] % (Auto) 7.8 H [place] # Eos # Lymph # (Auto) [place] # (Auto) 1.0 H Eos # (Auto) Seg Neutrophils % 75.5 H Seg Neuts % (Manual) Baso # (Auto) Lymphocytes % (Manual) Monocytes % (Manual) Eosinophils % (Manual) Basophils % (Manual) Seg Neutrophils # 9.7 H Seg Neutrophils # Man Lymphocytes # (Manual) Monocytes # (Manual) Eosinophils # (Manual) Nucleated RBC % Basophils # (Manual) PT INR APTT Heparin Anti-Xa Level ABG pH POC ABG pO2 ABG pO2 ABG HCO3 ABG O2 Saturation ABG Base Excess POC ABG pCO2 ABG Hemoglobin ABG Oxyhemoglobin ABG Sodium ABG Chloride ABG Glucose Oxyhemoglobin Sodium Potassium Chloride Carbon Dioxide BUN Creatinine Glucose POC Glucose 164 H 148 H Lactic Acid Calcium Phosphorus Magnesium AST ALT Lactate Dehydrogenase Total Bilirubin Direct Bilirubin CK-MB (CK-2) C-Reactive Protein NT-Pro-B Natriuret Pep Total Protein Albumin Arterial Blood Glucose Urine WBC (Auto) Urine Creatinine 12/25/19 12/25/19 12/25/19 04:18 05:38 11:44 WBC RBC Hgb Hct MCHC RDW MCV MCH Lymph % (Auto) [place] % (Auto) [place]ette # Eos # Lymph # (Auto) [place] # (Auto) Eos # (Auto) Seg Neutrophils % Seg Neuts % (Manual) Baso # (Auto) Lymphocytes % (Manual) Monocytes % (Manual) Eosinophils % (Manual) Basophils % (Manual) Seg Neutrophils # Seg Neutrophils # Man Lymphocytes # (Manual) Monocytes # (Manual) Eosinophils # (Manual) Nucleated RBC % Basophils # (Manual) PT INR APTT Heparin Anti-Xa Level ABG pH POC ABG pO2 ABG pO2 ABG HCO3 ABG O2 Saturation ABG Base Excess POC ABG pCO2 ABG Hemoglobin ABG Oxyhemoglobin ABG Sodium ABG Chloride ABG Glucose Oxyhemoglobin Sodium Potassium Chloride Carbon Dioxide 33 H BUN 27 H Creatinine 0.6 L Glucose 132 H POC Glucose 152 H 166 H Lactic Acid Calcium Phosphorus Magnesium AST ALT Lactate Dehydrogenase Total Bilirubin Direct Bilirubin CK-MB (CK-2) C-Reactive Protein NT-Pro-B Natriuret Pep Total Protein Albumin Arterial Blood Glucose Urine WBC (Auto) Urine Creatinine 12/25/19 12/26/19 12/26/19 18:29 00:17 00:18 WBC RBC Hgb Hct MCHC RDW MCV MCH Lymph % (Auto) [place] % (Auto) [place] # Eos # Lymph # (Auto) [place] # (Auto) Eos # (Auto) Seg Neutrophils % Seg Neuts % (Manual) Baso # (Auto) Lymphocytes % (Manual) Monocytes % (Manual) Eosinophils % (Manual) Basophils % (Manual) Seg Neutrophils # Seg Neutrophils # Man Lymphocytes # (Manual) Monocytes # (Manual) Eosinophils # (Manual) Nucleated RBC % Basophils # (Manual) PT INR APTT Heparin Anti-Xa Level ABG pH POC ABG pO2 ABG pO2 ABG HCO3 ABG O2 Saturation ABG Base Excess POC ABG pCO2 ABG Hemoglobin ABG Oxyhemoglobin ABG Sodium ABG Chloride ABG Glucose Oxyhemoglobin Sodium Potassium Chloride 97.8 L Carbon Dioxide BUN 25 H Creatinine 0.6 L Glucose 140 H POC Glucose 194 H 151 H Lactic Acid Calcium Phosphorus Magnesium AST ALT Lactate Dehydrogenase Total Bilirubin Direct Bilirubin CK-MB (CK-2) C-Reactive Protein NT-Pro-B Natriuret Pep Total Protein Albumin Arterial Blood Glucose Urine WBC (Auto) Urine Creatinine 12/26/19 12/26/19 12/26/19 05:36 11:41 17:50 WBC RBC Hgb Hct MCHC RDW MCV MCH Lymph % (Auto) [place] % (Auto) [place] # Eos # Lymph # (Auto) [place] # (Auto) Eos # (Auto) Seg Neutrophils % Seg Neuts % (Manual) Baso # (Auto) Lymphocytes % (Manual) Monocytes % (Manual) Eosinophils % (Manual) Basophils % (Manual) Seg Neutrophils # Seg Neutrophils # Man Lymphocytes # (Manual) Monocytes # (Manual) Eosinophils # (Manual) Nucleated RBC % Basophils # (Manual) PT INR APTT Heparin Anti-Xa Level ABG pH POC ABG pO2 ABG pO2 ABG HCO3 ABG O2 Saturation ABG Base Excess POC ABG pCO2 ABG Hemoglobin ABG Oxyhemoglobin ABG Sodium ABG Chloride ABG Glucose Oxyhemoglobin Sodium Potassium Chloride Carbon Dioxide BUN Creatinine Glucose POC Glucose 156 H 148 H 139 H Lactic Acid Calcium Phosphorus Magnesium AST ALT Lactate Dehydrogenase Total Bilirubin Direct Bilirubin CK-MB (CK-2) C-Reactive Protein NT-Pro-B Natriuret Pep Total Protein Albumin Arterial Blood Glucose Urine WBC (Auto) Urine Creatinine 12/26/19 12/27/19 12/27/19 23:19 05:34 12:02 WBC RBC Hgb Hct MCHC RDW MCV MCH Lymph % (Auto) [place] % (Auto) [place] # Eos # Lymph # (Auto) [place] # (Auto) Eos # (Auto) Seg Neutrophils % Seg Neuts % (Manual) Baso # (Auto) Lymphocytes % (Manual) Monocytes % (Manual) Eosinophils % (Manual) Basophils % (Manual) Seg Neutrophils # Seg Neutrophils # Man Lymphocytes # (Manual) Monocytes # (Manual) Eosinophils # (Manual) Nucleated RBC % Basophils # (Manual) PT INR APTT Heparin Anti-Xa Level ABG pH POC ABG pO2 ABG pO2 ABG HCO3 ABG O2 Saturation ABG Base Excess POC ABG pCO2 ABG Hemoglobin ABG Oxyhemoglobin ABG Sodium ABG Chloride ABG Glucose Oxyhemoglobin Sodium Potassium Chloride Carbon Dioxide BUN Creatinine Glucose POC Glucose 161 H 145 H 157 H Lactic Acid Calcium Phosphorus Magnesium AST ALT Lactate Dehydrogenase Total Bilirubin Direct Bilirubin CK-MB (CK-2) C-Reactive Protein NT-Pro-B Natriuret Pep Total Protein Albumin Arterial Blood Glucose Urine WBC (Auto) Urine Creatinine 12/27/19 12/27/19 12/27/19 17:35 20:11 23:00 WBC RBC Hgb Hct MCHC RDW MCV MCH Lymph % (Auto) [place] % (Auto) [place] # Eos # Lymph # (Auto) [place] # (Auto) Eos # (Auto) Seg Neutrophils % Seg Neuts % (Manual) Baso # (Auto) Lymphocytes % (Manual) Monocytes % (Manual) Eosinophils % (Manual) Basophils % (Manual) Seg Neutrophils # Seg Neutrophils # Man Lymphocytes # (Manual) Monocytes # (Manual) Eosinophils # (Manual) Nucleated RBC % Basophils # (Manual) PT INR APTT Heparin Anti-Xa Level 0.19 L ABG pH POC ABG pO2 ABG pO2 ABG HCO3 ABG O2 Saturation ABG Base Excess POC ABG pCO2 ABG Hemoglobin ABG Oxyhemoglobin ABG Sodium ABG Chloride ABG Glucose Oxyhemoglobin Sodium Potassium Chloride Carbon Dioxide BUN Creatinine Glucose POC Glucose 158 H 155 H Lactic Acid Calcium Phosphorus Magnesium AST ALT Lactate Dehydrogenase Total Bilirubin Direct Bilirubin CK-MB (CK-2) C-Reactive Protein NT-Pro-B Natriuret Pep Total Protein Albumin Arterial Blood Glucose Urine WBC (Auto) Urine Creatinine 12/27/19 12/28/19 12/28/19 23:45 02:41 02:41 WBC 13.0 H RBC 3.48 L Hgb 9.5 L Hct 30.6 L MCHC 31 L RDW 16.6 H MCV MCH 27 L Lymph % (Auto) 13.0 L [place] % (Auto) 8.0 H [place] # Eos # Lymph # (Auto) [place] # (Auto) 1.0 H Eos # (Auto) Seg Neutrophils % 76.3 H Seg Neuts % (Manual) Baso # (Auto) Lymphocytes % (Manual) Monocytes % (Manual) Eosinophils % (Manual) Basophils % (Manual) Seg Neutrophils # 9.9 H Seg Neutrophils # Man Lymphocytes # (Manual) Monocytes # (Manual) Eosinophils # (Manual) Nucleated RBC % Basophils # (Manual) PT INR APTT Heparin Anti-Xa Level ABG pH POC ABG pO2 ABG pO2 ABG HCO3 ABG O2 Saturation ABG Base Excess POC ABG pCO2 ABG Hemoglobin ABG Oxyhemoglobin ABG Sodium ABG Chloride ABG Glucose Oxyhemoglobin Sodium Potassium Chloride Carbon Dioxide BUN 22 H Creatinine 0.6 L Glucose 101 H POC Glucose 130 H Lactic Acid Calcium Phosphorus Magnesium AST ALT Lactate Dehydrogenase Total Bilirubin Direct Bilirubin CK-MB (CK-2) C-Reactive Protein NT-Pro-B Natriuret Pep Total Protein Albumin Arterial Blood Glucose Urine WBC (Auto) Urine Creatinine 12/28/19 12/28/19 12/28/19 06:00 12:34 18:13 WBC RBC Hgb Hct MCHC RDW MCV MCH Lymph % (Auto) [place] % (Auto) [place] # Eos # Lymph # (Auto) [place] # (Auto) Eos # (Auto) Seg Neutrophils % Seg Neuts % (Manual) Baso # (Auto) Lymphocytes % (Manual) Monocytes % (Manual) Eosinophils % (Manual) Basophils % (Manual) Seg Neutrophils # Seg Neutrophils # Man Lymphocytes # (Manual) Monocytes # (Manual) Eosinophils # (Manual) Nucleated RBC % Basophils # (Manual) PT INR APTT Heparin Anti-Xa Level ABG pH POC ABG pO2 ABG pO2 ABG HCO3 ABG O2 Saturation ABG Base Excess POC ABG pCO2 ABG Hemoglobin ABG Oxyhemoglobin ABG Sodium ABG Chloride ABG Glucose Oxyhemoglobin Sodium Potassium Chloride Carbon Dioxide BUN Creatinine Glucose POC Glucose 150 H 161 H 128 H Lactic Acid Calcium Phosphorus Magnesium AST ALT Lactate Dehydrogenase Total Bilirubin Direct Bilirubin CK-MB (CK-2) C-Reactive Protein NT-Pro-B Natriuret Pep Total Protein Albumin Arterial Blood Glucose Urine WBC (Auto) Urine Creatinine 12/28/19 12/29/19 12/29/19 23:36 05:21 11:40 WBC RBC Hgb Hct MCHC RDW MCV MCH Lymph % (Auto) [place] % (Auto) [place] # Eos # Lymph # (Auto) [place] # (Auto) Eos # (Auto) Seg Neutrophils % Seg Neuts % (Manual) Baso # (Auto) Lymphocytes % (Manual) Monocytes % (Manual) Eosinophils % (Manual) Basophils % (Manual) Seg Neutrophils # Seg Neutrophils # Man Lymphocytes # (Manual) Monocytes # (Manual) Eosinophils # (Manual) Nucleated RBC % Basophils # (Manual) PT INR APTT Heparin Anti-Xa Level ABG pH POC ABG pO2 ABG pO2 ABG HCO3 ABG O2 Saturation ABG Base Excess POC ABG pCO2 ABG Hemoglobin ABG Oxyhemoglobin ABG Sodium ABG Chloride ABG Glucose Oxyhemoglobin Sodium Potassium Chloride Carbon Dioxide BUN Creatinine Glucose POC Glucose 137 H 136 H 166 H Lactic Acid Calcium Phosphorus Magnesium AST ALT Lactate Dehydrogenase Total Bilirubin Direct Bilirubin CK-MB (CK-2) C-Reactive Protein NT-Pro-B Natriuret Pep Total Protein Albumin Arterial Blood Glucose Urine WBC (Auto) Urine Creatinine 12/29/19 12/29/19 12/29/19 17:23 19:21 23:38 WBC RBC Hgb Hct MCHC RDW MCV MCH Lymph % (Auto) [place] % (Auto) [place] # Eos # Lymph # (Auto) [place] # (Auto) Eos # (Auto) Seg Neutrophils % Seg Neuts % (Manual) Baso # (Auto) Lymphocytes % (Manual) Monocytes % (Manual) Eosinophils % (Manual) Basophils % (Manual) Seg Neutrophils # Seg Neutrophils # Man Lymphocytes # (Manual) Monocytes # (Manual) Eosinophils # (Manual) Nucleated RBC % Basophils # (Manual) PT INR APTT Heparin Anti-Xa Level 0.20 L ABG pH POC ABG pO2 ABG pO2 ABG HCO3 ABG O2 Saturation ABG Base Excess POC ABG pCO2 ABG Hemoglobin ABG Oxyhemoglobin ABG Sodium ABG Chloride ABG Glucose Oxyhemoglobin Sodium Potassium Chloride Carbon Dioxide BUN Creatinine Glucose POC Glucose 144 H 141 H Lactic Acid Calcium Phosphorus Magnesium AST ALT Lactate Dehydrogenase Total Bilirubin Direct Bilirubin CK-MB (CK-2) C-Reactive Protein NT-Pro-B Natriuret Pep Total Protein Albumin Arterial Blood Glucose Urine WBC (Auto) Urine Creatinine 10/07/20 10/07/20 10/07/20 03:58 03:58 04:59 WBC RBC 3.54 L Hgb 9.8 L Hct 30.7 L MCHC RDW 16.8 H MCV MCH Lymph % (Auto) [place] % (Auto) [place] # Eos # Lymph # (Auto) [place] # (Auto) Eos # (Auto) Seg Neutrophils % Seg Neuts % (Manual) Baso # (Auto) Lymphocytes % (Manual) Monocytes % (Manual) Eosinophils % (Manual) Basophils % (Manual) Seg Neutrophils # Seg Neutrophils # Man Lymphocytes # (Manual) Monocytes # (Manual) Eosinophils # (Manual) Nucleated RBC % Basophils # (Manual) PT INR APTT Heparin Anti-Xa Level ABG pH POC ABG pO2 ABG pO2 ABG HCO3 29.8 H ABG O2 Saturation ABG Base Excess 4.8 H POC ABG pCO2 ABG Hemoglobin 11.2 L ABG Oxyhemoglobin ABG Sodium ABG Chloride ABG Glucose Oxyhemoglobin 93.8 L Sodium Potassium Chloride 97.8 L Carbon Dioxide BUN 26 H Creatinine Glucose 168 H POC Glucose Lactic Acid Calcium Phosphorus Magnesium AST ALT Lactate Dehydrogenase Total Bilirubin Direct Bilirubin CK-MB (CK-2) C-Reactive Protein NT-Pro-B Natriuret Pep Total Protein Albumin Arterial Blood Glucose Urine WBC (Auto) Urine Creatinine 12/30/19 12/30/19 12/30/19 05:45 11:34 17:28 WBC RBC Hgb Hct MCHC RDW MCV MCH Lymph % (Auto) [place] % (Auto) [place] # Eos # Lymph # (Auto) [place] # (Auto) Eos # (Auto) Seg Neutrophils % Seg Neuts % (Manual) Baso # (Auto) Lymphocytes % (Manual) Monocytes % (Manual) Eosinophils % (Manual) Basophils % (Manual) Seg Neutrophils # Seg Neutrophils # Man Lymphocytes # (Manual) Monocytes # (Manual) Eosinophils # (Manual) Nucleated RBC % Basophils # (Manual) PT INR APTT Heparin Anti-Xa Level ABG pH POC ABG pO2 ABG pO2 ABG HCO3 ABG O2 Saturation ABG Base Excess POC ABG pCO2 ABG Hemoglobin ABG Oxyhemoglobin ABG Sodium ABG Chloride ABG Glucose Oxyhemoglobin Sodium Potassium Chloride Carbon Dioxide BUN Creatinine Glucose POC Glucose 163 H 180 H 150 H Lactic Acid Calcium Phosphorus Magnesium AST ALT Lactate Dehydrogenase Total Bilirubin Direct Bilirubin CK-MB (CK-2) C-Reactive Protein NT-Pro-B Natriuret Pep Total Protein Albumin Arterial Blood Glucose Urine WBC (Auto) Urine Creatinine 12/30/19 12/31/19 12/31/19 23:43 04:55 05:07 WBC RBC Hgb Hct MCHC RDW MCV MCH Lymph % (Auto) [place] % (Auto) [place] # Eos # Lymph # (Auto) [place] # (Auto) Eos # (Auto) Seg Neutrophils % Seg Neuts % (Manual) Baso # (Auto) Lymphocytes % (Manual) Monocytes % (Manual) Eosinophils % (Manual) Basophils % (Manual) Seg Neutrophils # Seg Neutrophils # Man Lymphocytes # (Manual) Monocytes # (Manual) Eosinophils # (Manual) Nucleated RBC % Basophils # (Manual) PT INR APTT Heparin Anti-Xa Level ABG pH POC ABG pO2 ABG pO2 ABG HCO3 ABG O2 Saturation ABG Base Excess POC ABG pCO2 ABG Hemoglobin ABG Oxyhemoglobin ABG Sodium ABG Chloride ABG Glucose Oxyhemoglobin Sodium Potassium 5.6 H D Chloride Carbon Dioxide BUN 33 H Creatinine Glucose 131 H POC Glucose 142 H 134 H Lactic Acid Calcium Phosphorus Magnesium AST ALT Lactate Dehydrogenase Total Bilirubin Direct Bilirubin CK-MB (CK-2) C-Reactive Protein NT-Pro-B Natriuret Pep Total Protein Albumin Arterial Blood Glucose Urine WBC (Auto) Urine Creatinine 12/31/19 12/31/19 12/31/19 11:30 17:19 17:36 WBC RBC Hgb Hct MCHC RDW MCV MCH Lymph % (Auto) [place] % (Auto) [place] # Eos # Lymph # (Auto) [place] # (Auto) Eos # (Auto) Seg Neutrophils % Seg Neuts % (Manual) Baso # (Auto) Lymphocytes % (Manual) Monocytes % (Manual) Eosinophils % (Manual) Basophils % (Manual) Seg Neutrophils # Seg Neutrophils # Man Lymphocytes # (Manual) Monocytes # (Manual) Eosinophils # (Manual) Nucleated RBC % Basophils # (Manual) PT INR APTT Heparin Anti-Xa Level ABG pH POC ABG pO2 ABG pO2 ABG HCO3 ABG O2 Saturation ABG Base Excess POC ABG pCO2 ABG Hemoglobin ABG Oxyhemoglobin ABG Sodium ABG Chloride ABG Glucose Oxyhemoglobin Sodium Potassium Chloride Carbon Dioxide BUN 35 H Creatinine Glucose 156 H POC Glucose 158 H 181 H Lactic Acid Calcium Phosphorus Magnesium AST ALT Lactate Dehydrogenase Total Bilirubin Direct Bilirubin CK-MB (CK-2) C-Reactive Protein NT-Pro-B Natriuret Pep Total Protein Albumin Arterial Blood Glucose Urine WBC (Auto) Urine Creatinine 12/31/19 12/31/19 12/31/19 18:16 19:41 21:53 WBC RBC Hgb Hct MCHC RDW MCV MCH Lymph % (Auto) [place] % (Auto) [place] # Eos # Lymph # (Auto) [place] # (Auto) Eos # (Auto) Seg Neutrophils % Seg Neuts % (Manual) Baso # (Auto) Lymphocytes % (Manual) Monocytes % (Manual) Eosinophils % (Manual) Basophils % (Manual) Seg Neutrophils # Seg Neutrophils # Man Lymphocytes # (Manual) Monocytes # (Manual) Eosinophils # (Manual) Nucleated RBC % Basophils # (Manual) PT INR APTT Heparin Anti-Xa Level 0.20 L ABG pH POC ABG pO2 ABG pO2 ABG HCO3 ABG O2 Saturation ABG Base Excess POC ABG pCO2 ABG Hemoglobin ABG Oxyhemoglobin ABG Sodium ABG Chloride ABG Glucose Oxyhemoglobin Sodium Potassium Chloride Carbon Dioxide BUN 34 H Creatinine Glucose 169 H POC Glucose 141 H Lactic Acid Calcium Phosphorus Magnesium AST ALT Lactate Dehydrogenase Total Bilirubin Direct Bilirubin CK-MB (CK-2) C-Reactive Protein NT-Pro-B Natriuret Pep Total Protein Albumin Arterial Blood Glucose Urine WBC (Auto) Urine Creatinine 12/31/19 01/01/20 01/01/20 23:51 05:17 10:40 WBC RBC Hgb Hct MCHC RDW MCV MCH Lymph % (Auto) [place] % (Auto) [place] # Eos # Lymph # (Auto) [place] # (Auto) Eos # (Auto) Seg Neutrophils % Seg Neuts % (Manual) Baso # (Auto) Lymphocytes % (Manual) Monocytes % (Manual) Eosinophils % (Manual) Basophils % (Manual) Seg Neutrophils # Seg Neutrophils # Man Lymphocytes # (Manual) Monocytes # (Manual) Eosinophils # (Manual) Nucleated RBC % Basophils # (Manual) PT INR APTT Heparin Anti-Xa Level ABG pH POC ABG pO2 ABG pO2 ABG HCO3 ABG O2 Saturation ABG Base Excess POC ABG pCO2 ABG Hemoglobin ABG Oxyhemoglobin ABG Sodium ABG Chloride ABG Glucose Oxyhemoglobin Sodium Potassium Chloride Carbon Dioxide BUN 31 H Creatinine 0.7 L Glucose 137 H POC Glucose 131 H 155 H Lactic Acid Calcium Phosphorus Magnesium AST 73 H ALT 97 H Lactate Dehydrogenase Total Bilirubin Direct Bilirubin CK-MB (CK-2) C-Reactive Protein NT-Pro-B Natriuret Pep 3866 H Total Protein Albumin 2.8 L Arterial Blood Glucose Urine WBC (Auto) Urine Creatinine 01/01/20 01/01/20 01/01/20 12:26 15:33 17:53 WBC 14.3 H RBC 3.35 L Hgb 9.1 L Hct 28.8 L MCHC RDW 17.0 H MCV MCH 27 L Lymph % (Auto) 7.0 L [place] % (Auto) 7.6 H [place] # Eos # Lymph # (Auto) 1.0 L [place] # (Auto) 1.1 H Eos # (Auto) Seg Neutrophils % 83.3 H Seg Neuts % (Manual) Baso # (Auto) Lymphocytes % (Manual) Monocytes % (Manual) Eosinophils % (Manual) Basophils % (Manual) Seg Neutrophils # 12.0 H Seg Neutrophils # Man Lymphocytes # (Manual) Monocytes # (Manual) Eosinophils # (Manual) Nucleated RBC % Basophils # (Manual) PT INR APTT Heparin Anti-Xa Level ABG pH POC ABG pO2 ABG pO2 ABG HCO3 ABG O2 Saturation ABG Base Excess POC ABG pCO2 ABG Hemoglobin ABG Oxyhemoglobin ABG Sodium ABG Chloride ABG Glucose Oxyhemoglobin Sodium Potassium Chloride Carbon Dioxide BUN Creatinine Glucose POC Glucose 128 H 128 H Lactic Acid Calcium Phosphorus Magnesium AST ALT Lactate Dehydrogenase Total Bilirubin Direct Bilirubin CK-MB (CK-2) C-Reactive Protein NT-Pro-B Natriuret Pep Total Protein Albumin Arterial Blood Glucose Urine WBC (Auto) Urine Creatinine 01/01/20 01/02/20 01/02/20 23:04 05:39 07:00 WBC RBC Hgb Hct MCHC RDW MCV MCH Lymph % (Auto) [place] % (Auto) [place] # Eos # Lymph # (Auto) [place] # (Auto) Eos # (Auto) Seg Neutrophils % Seg Neuts % (Manual) Baso # (Auto) Lymphocytes % (Manual) Monocytes % (Manual) Eosinophils % (Manual) Basophils % (Manual) Seg Neutrophils # Seg Neutrophils # Man Lymphocytes # (Manual) Monocytes # (Manual) Eosinophils # (Manual) Nucleated RBC % Basophils # (Manual) PT INR APTT Heparin Anti-Xa Level 0.13 L ABG pH POC ABG pO2 ABG pO2 ABG HCO3 ABG O2 Saturation ABG Base Excess POC ABG pCO2 ABG Hemoglobin ABG Oxyhemoglobin ABG Sodium ABG Chloride ABG Glucose Oxyhemoglobin Sodium Potassium Chloride Carbon Dioxide BUN Creatinine Glucose POC Glucose 120 H 169 H Lactic Acid Calcium Phosphorus Magnesium AST ALT Lactate Dehydrogenase Total Bilirubin Direct Bilirubin CK-MB (CK-2) C-Reactive Protein NT-Pro-B Natriuret Pep Total Protein Albumin Arterial Blood Glucose Urine WBC (Auto) Urine Creatinine 01/02/20 01/02/20 01/02/20 12:15 14:06 17:58 WBC RBC Hgb Hct MCHC RDW MCV MCH Lymph % (Auto) [place] % (Auto) [place] # Eos # Lymph # (Auto) [place] # (Auto) Eos # (Auto) Seg Neutrophils % Seg Neuts % (Manual) Baso # (Auto) Lymphocytes % (Manual) Monocytes % (Manual) Eosinophils % (Manual) Basophils % (Manual) Seg Neutrophils # Seg Neutrophils # Man Lymphocytes # (Manual) Monocytes # (Manual) Eosinophils # (Manual) Nucleated RBC % Basophils # (Manual) PT INR APTT Heparin Anti-Xa Level < 0.10 L ABG pH POC ABG pO2 ABG pO2 ABG HCO3 ABG O2 Saturation ABG Base Excess POC ABG pCO2 ABG Hemoglobin ABG Oxyhemoglobin ABG Sodium ABG Chloride ABG Glucose Oxyhemoglobin Sodium Potassium Chloride Carbon Dioxide BUN Creatinine Glucose POC Glucose 190 H 198 H Lactic Acid Calcium Phosphorus Magnesium AST ALT Lactate Dehydrogenase Total Bilirubin Direct Bilirubin CK-MB (CK-2) C-Reactive Protein NT-Pro-B Natriuret Pep Total Protein Albumin Arterial Blood Glucose Urine WBC (Auto) Urine Creatinine 01/02/20 01/02/20 01/03/20 21:43 23:33 05:42 WBC RBC Hgb Hct MCHC RDW MCV MCH Lymph % (Auto) [place] % (Auto) [place] # Eos # Lymph # (Auto) [place] # (Auto) Eos # (Auto) Seg Neutrophils % Seg Neuts % (Manual) Baso # (Auto) Lymphocytes % (Manual) Monocytes % (Manual) Eosinophils % (Manual) Basophils % (Manual) Seg Neutrophils # Seg Neutrophils # Man Lymphocytes # (Manual) Monocytes # (Manual) Eosinophils # (Manual) Nucleated RBC % Basophils # (Manual) PT INR APTT Heparin Anti-Xa Level 0.10 L ABG pH POC ABG pO2 ABG pO2 ABG HCO3 ABG O2 Saturation ABG Base Excess POC ABG pCO2 ABG Hemoglobin ABG Oxyhemoglobin ABG Sodium ABG Chloride ABG Glucose Oxyhemoglobin Sodium Potassium Chloride Carbon Dioxide BUN Creatinine Glucose POC Glucose 180 H 163 H Lactic Acid Calcium Phosphorus Magnesium AST ALT Lactate Dehydrogenase Total Bilirubin Direct Bilirubin CK-MB (CK-2) C-Reactive Protein NT-Pro-B Natriuret Pep Total Protein Albumin Arterial Blood Glucose Urine WBC (Auto) Urine Creatinine 01/03/20 01/03/20 01/03/20 06:50 07:25 07:45 WBC 12.1 H RBC 3.35 L Hgb 9.0 L Hct 28.9 L MCHC 31 L RDW 16.6 H MCV MCH 27 L Lymph % (Auto) 13.0 L [place] % (Auto) 8.6 H [place] # Eos # Lymph # (Auto) [place] # (Auto) 1.0 H Eos # (Auto) Seg Neutrophils % 75.9 H Seg Neuts % (Manual) Baso # (Auto) Lymphocytes % (Manual) Monocytes % (Manual) Eosinophils % (Manual) Basophils % (Manual) Seg Neutrophils # 9.2 H Seg Neutrophils # Man Lymphocytes # (Manual) Monocytes # (Manual) Eosinophils # (Manual) Nucleated RBC % Basophils # (Manual) PT INR APTT Heparin Anti-Xa Level 0.29 L ABG pH POC ABG pO2 ABG pO2 ABG HCO3 ABG O2 Saturation ABG Base Excess POC ABG pCO2 ABG Hemoglobin ABG Oxyhemoglobin ABG Sodium ABG Chloride ABG Glucose Oxyhemoglobin Sodium Potassium 3.3 L D Chloride Carbon Dioxide 35 H D BUN 23 H Creatinine 0.6 L Glucose 149 H POC Glucose Lactic Acid Calcium Phosphorus Magnesium AST ALT 88 H Lactate Dehydrogenase Total Bilirubin Direct Bilirubin CK-MB (CK-2) C-Reactive Protein NT-Pro-B Natriuret Pep Total Protein 6.2 L Albumin 2.9 L Arterial Blood Glucose Urine WBC (Auto) Urine Creatinine 01/03/20 01/03/20 01/03/20 12:05 17:42 18:30 WBC RBC Hgb Hct MCHC RDW MCV MCH Lymph % (Auto) [place] % (Auto) [place] # Eos # Lymph # (Auto) [place] # (Auto) Eos # (Auto) Seg Neutrophils % Seg Neuts % (Manual) Baso # (Auto) Lymphocytes % (Manual) Monocytes % (Manual) Eosinophils % (Manual) Basophils % (Manual) Seg Neutrophils # Seg Neutrophils # Man Lymphocytes # (Manual) Monocytes # (Manual) Eosinophils # (Manual) Nucleated RBC % Basophils # (Manual) PT INR APTT Heparin Anti-Xa Level ABG pH POC ABG pO2 ABG pO2 70.7 L ABG HCO3 36.1 H ABG O2 Saturation 94.4 L ABG Base Excess 10.0 H POC ABG pCO2 ABG Hemoglobin 9.7 L ABG Oxyhemoglobin ABG Sodium ABG Chloride ABG Glucose Oxyhemoglobin 91.8 L Sodium Potassium Chloride Carbon Dioxide BUN Creatinine Glucose POC Glucose 128 H 132 H Lactic Acid Calcium Phosphorus Magnesium AST ALT Lactate Dehydrogenase Total Bilirubin Direct Bilirubin CK-MB (CK-2) C-Reactive Protein NT-Pro-B Natriuret Pep Total Protein Albumin Arterial Blood Glucose Urine WBC (Auto) Urine Creatinine 01/04/20 01/04/20 01/04/20 00:10 04:26 05:23 WBC RBC Hgb Hct MCHC RDW MCV MCH Lymph % (Auto) [place] % (Auto) [place] # Eos # Lymph # (Auto) [place] # (Auto) Eos # (Auto) Seg Neutrophils % Seg Neuts % (Manual) Baso # (Auto) Lymphocytes % (Manual) Monocytes % (Manual) Eosinophils % (Manual) Basophils % (Manual) Seg Neutrophils # Seg Neutrophils # Man Lymphocytes # (Manual) Monocytes # (Manual) Eosinophils # (Manual) Nucleated RBC % Basophils # (Manual) PT INR APTT Heparin Anti-Xa Level 0.16 L ABG pH POC ABG pO2 ABG pO2 ABG HCO3 ABG O2 Saturation ABG Base Excess POC ABG pCO2 ABG Hemoglobin ABG Oxyhemoglobin ABG Sodium ABG Chloride ABG Glucose Oxyhemoglobin Sodium Potassium Chloride Carbon Dioxide BUN Creatinine Glucose POC Glucose 121 H 119 H Lactic Acid Calcium Phosphorus Magnesium AST ALT Lactate Dehydrogenase Total Bilirubin Direct Bilirubin CK-MB (CK-2) C-Reactive Protein NT-Pro-B Natriuret Pep Total Protein Albumin Arterial Blood Glucose Urine WBC (Auto) Urine Creatinine 01/04/20 01/04/20 01/04/20 09:50 09:50 12:18 WBC 15.4 H RBC 3.30 L Hgb 8.7 L Hct 28.2 L MCHC 31 L RDW 17.0 H MCV MCH 26 L Lymph % (Auto) [place] % (Auto) 7.6 H [place] # Eos # Lymph # (Auto) [place] # (Auto) 1.2 H Eos # (Auto) Seg Neutrophils % 75.4 H Seg Neuts % (Manual) Baso # (Auto) Lymphocytes % (Manual) Monocytes % (Manual) Eosinophils % (Manual) Basophils % (Manual) Seg Neutrophils # 11.6 H Seg Neutrophils # Man Lymphocytes # (Manual) Monocytes # (Manual) Eosinophils # (Manual) Nucleated RBC % Basophils # (Manual) PT INR APTT Heparin Anti-Xa Level ABG pH POC ABG pO2 ABG pO2 ABG HCO3 ABG O2 Saturation ABG Base Excess POC ABG pCO2 ABG Hemoglobin ABG Oxyhemoglobin ABG Sodium ABG Chloride ABG Glucose Oxyhemoglobin Sodium 148 H Potassium 3.5 L Chloride Carbon Dioxide 32 H BUN Creatinine 0.6 L Glucose 114 H POC Glucose 111 H Lactic Acid Calcium Phosphorus Magnesium AST ALT 59 H Lactate Dehydrogenase Total Bilirubin Direct Bilirubin CK-MB (CK-2) C-Reactive Protein NT-Pro-B Natriuret Pep Total Protein Albumin 2.6 L Arterial Blood Glucose Urine WBC (Auto) Urine Creatinine 01/05/20 01/05/20 01/05/20 04:05 04:05 05:19 WBC 11.7 H RBC 3.50 L Hgb 9.3 L Hct 29.9 L MCHC 31 L RDW 16.6 H MCV MCH 27 L Lymph % (Auto) 13.1 L [place] % (Auto) 9.7 H [place] # Eos # Lymph # (Auto) [place] # (Auto) 1.1 H Eos # (Auto) Seg Neutrophils % 74.0 H Seg Neuts % (Manual) Baso # (Auto) Lymphocytes % (Manual) Monocytes % (Manual) Eosinophils % (Manual) Basophils % (Manual) Seg Neutrophils # 8.6 H Seg Neutrophils # Man Lymphocytes # (Manual) Monocytes # (Manual) Eosinophils # (Manual) Nucleated RBC % Basophils # (Manual) PT INR APTT Heparin Anti-Xa Level ABG pH POC ABG pO2 ABG pO2 ABG HCO3 ABG O2 Saturation ABG Base Excess POC ABG pCO2 ABG Hemoglobin ABG Oxyhemoglobin ABG Sodium ABG Chloride ABG Glucose Oxyhemoglobin Sodium 151 H Potassium Chloride Carbon Dioxide 34 H BUN Creatinine 0.7 L Glucose POC Glucose 112 H Lactic Acid Calcium Phosphorus Magnesium AST ALT 59 H Lactate Dehydrogenase Total Bilirubin Direct Bilirubin CK-MB (CK-2) C-Reactive Protein NT-Pro-B Natriuret Pep Total Protein 5.8 L Albumin 2.6 L Arterial Blood Glucose Urine WBC (Auto) Urine Creatinine 01/05/20 01/06/20 01/06/20 16:04 00:23 04:44 WBC RBC 3.36 L Hgb 8.9 L Hct 28.7 L MCHC 31 L RDW 16.9 H MCV MCH 26 L Lymph % (Auto) Payette % (Auto) 9.4 H Payette # Eos # Lymph # (Auto) [place]ette # (Auto) Eos # (Auto) Seg Neutrophils % Seg Neuts % (Manual) Baso # (Auto) Lymphocytes % (Manual) Monocytes % (Manual) Eosinophils % (Manual) Basophils % (Manual) Seg Neutrophils # Seg Neutrophils # Man Lymphocytes # (Manual) Monocytes # (Manual) Eosinophils # (Manual) Nucleated RBC % Basophils # (Manual) PT INR APTT Heparin Anti-Xa Level ABG pH POC ABG pO2 ABG pO2 ABG HCO3 ABG O2 Saturation ABG Base Excess POC ABG pCO2 ABG Hemoglobin ABG Oxyhemoglobin ABG Sodium ABG Chloride ABG Glucose Oxyhemoglobin Sodium 151 H Potassium 3.2 L Chloride Carbon Dioxide 34 H BUN Creatinine 0.6 L Glucose POC Glucose 107 H Lactic Acid Calcium Phosphorus Magnesium AST ALT Lactate Dehydrogenase Total Bilirubin Direct Bilirubin CK-MB (CK-2) C-Reactive Protein NT-Pro-B Natriuret Pep Total Protein Albumin Arterial Blood Glucose Urine WBC (Auto) Urine Creatinine 01/06/20 01/06/20 01/06/20 04:44 05:33 12:04 WBC RBC Hgb Hct MCHC RDW MCV MCH Lymph % (Auto) [place] % (Auto) [place] # Eos # Lymph # (Auto) [place] # (Auto) Eos # (Auto) Seg Neutrophils % Seg Neuts % (Manual) Baso # (Auto) Lymphocytes % (Manual) Monocytes % (Manual) Eosinophils % (Manual) Basophils % (Manual) Seg Neutrophils # Seg Neutrophils # Man Lymphocytes # (Manual) Monocytes # (Manual) Eosinophils # (Manual) Nucleated RBC % Basophils # (Manual) PT INR APTT Heparin Anti-Xa Level ABG pH POC ABG pO2 ABG pO2 ABG HCO3 ABG O2 Saturation ABG Base Excess POC ABG pCO2 ABG Hemoglobin ABG Oxyhemoglobin ABG Sodium ABG Chloride ABG Glucose Oxyhemoglobin Sodium 151 H Potassium 3.4 L Chloride Carbon Dioxide 33 H BUN Creatinine 0.6 L Glucose 118 H POC Glucose 118 H 123 H Lactic Acid Calcium Phosphorus Magnesium AST ALT Lactate Dehydrogenase Total Bilirubin Direct Bilirubin CK-MB (CK-2) C-Reactive Protein NT-Pro-B Natriuret Pep Total Protein 6.2 L Albumin 2.6 L Arterial Blood Glucose Urine WBC (Auto) Urine Creatinine 01/06/20 01/07/20 01/07/20 17:54 00:06 04:10 WBC RBC 3.42 L Hgb 8.9 L Hct 29.0 L MCHC 31 L RDW 17.1 H MCV MCH 26 L Lymph % (Auto) [place] % (Auto) 8.4 H [place] # Eos # Lymph # (Auto) [place] # (Auto) Eos # (Auto) Seg Neutrophils % Seg Neuts % (Manual) Baso # (Auto) Lymphocytes % (Manual) Monocytes % (Manual) Eosinophils % (Manual) Basophils % (Manual) Seg Neutrophils # Seg Neutrophils # Man Lymphocytes # (Manual) Monocytes # (Manual) Eosinophils # (Manual) Nucleated RBC % Basophils # (Manual) PT INR APTT Heparin Anti-Xa Level ABG pH POC ABG pO2 ABG pO2 ABG HCO3 ABG O2 Saturation ABG Base Excess POC ABG pCO2 ABG Hemoglobin ABG Oxyhemoglobin ABG Sodium ABG Chloride ABG Glucose Oxyhemoglobin Sodium Potassium Chloride Carbon Dioxide BUN Creatinine Glucose POC Glucose 112 H 126 H Lactic Acid Calcium Phosphorus Magnesium AST ALT Lactate Dehydrogenase Total Bilirubin Direct Bilirubin CK-MB (CK-2) C-Reactive Protein NT-Pro-B Natriuret Pep Total Protein Albumin Arterial Blood Glucose Urine WBC (Auto) Urine Creatinine 01/07/20 01/07/20 01/07/20 04:10 05:59 12:27 WBC RBC Hgb Hct MCHC RDW MCV MCH Lymph % (Auto) [place] % (Auto) [place] # Eos # Lymph # (Auto) [place] # (Auto) Eos # (Auto) Seg Neutrophils % Seg Neuts % (Manual) Baso # (Auto) Lymphocytes % (Manual) Monocytes % (Manual) Eosinophils % (Manual) Basophils % (Manual) Seg Neutrophils # Seg Neutrophils # Man Lymphocytes # (Manual) Monocytes # (Manual) Eosinophils # (Manual) Nucleated RBC % Basophils # (Manual) PT INR APTT Heparin Anti-Xa Level ABG pH POC ABG pO2 ABG pO2 ABG HCO3 ABG O2 Saturation ABG Base Excess POC ABG pCO2 ABG Hemoglobin ABG Oxyhemoglobin ABG Sodium ABG Chloride ABG Glucose Oxyhemoglobin Sodium 153 H Potassium 3.5 L Chloride Carbon Dioxide 34 H BUN Creatinine 0.6 L Glucose 121 H POC Glucose 121 H 126 H Lactic Acid Calcium Phosphorus Magnesium AST ALT Lactate Dehydrogenase Total Bilirubin Direct Bilirubin CK-MB (CK-2) C-Reactive Protein NT-Pro-B Natriuret Pep Total Protein 5.9 L Albumin 2.4 L Arterial Blood Glucose Urine WBC (Auto) Urine Creatinine 01/07/20 01/08/20 01/08/20 18:12 00:03 05:41 WBC RBC Hgb Hct MCHC RDW MCV MCH Lymph % (Auto) [place] % (Auto) [place] # Eos # Lymph # (Auto) [place] # (Auto) Eos # (Auto) Seg Neutrophils % Seg Neuts % (Manual) Baso # (Auto) Lymphocytes % (Manual) Monocytes % (Manual) Eosinophils % (Manual) Basophils % (Manual) Seg Neutrophils # Seg Neutrophils # Man Lymphocytes # (Manual) Monocytes # (Manual) Eosinophils # (Manual) Nucleated RBC % Basophils # (Manual) PT INR APTT Heparin Anti-Xa Level ABG pH POC ABG pO2 ABG pO2 ABG HCO3 ABG O2 Saturation ABG Base Excess POC ABG pCO2 ABG Hemoglobin ABG Oxyhemoglobin ABG Sodium ABG Chloride ABG Glucose Oxyhemoglobin Sodium Potassium Chloride Carbon Dioxide BUN Creatinine Glucose POC Glucose 124 H 130 H 138 H Lactic Acid Calcium Phosphorus Magnesium AST ALT Lactate Dehydrogenase Total Bilirubin Direct Bilirubin CK-MB (CK-2) C-Reactive Protein NT-Pro-B Natriuret Pep Total Protein Albumin Arterial Blood Glucose Urine WBC (Auto) Urine Creatinine 01/08/20 01/08/20 01/08/20 09:28 11:42 18:21 WBC RBC Hgb Hct MCHC RDW MCV MCH Lymph % (Auto) [place] % (Auto) [place] # Eos # Lymph # (Auto) [place] # (Auto) Eos # (Auto) Seg Neutrophils % Seg Neuts % (Manual) Baso # (Auto) Lymphocytes % (Manual) Monocytes % (Manual) Eosinophils % (Manual) Basophils % (Manual) Seg Neutrophils # Seg Neutrophils # Man Lymphocytes # (Manual) Monocytes # (Manual) Eosinophils # (Manual) Nucleated RBC % Basophils # (Manual) PT INR APTT Heparin Anti-Xa Level ABG pH POC ABG pO2 ABG pO2 ABG HCO3 ABG O2 Saturation ABG Base Excess POC ABG pCO2 ABG Hemoglobin ABG Oxyhemoglobin ABG Sodium ABG Chloride ABG Glucose Oxyhemoglobin Sodium Potassium Chloride Carbon Dioxide BUN Creatinine Glucose POC Glucose 181 H 150 H 129 H Lactic Acid Calcium Phosphorus Magnesium AST ALT Lactate Dehydrogenase Total Bilirubin Direct Bilirubin CK-MB (CK-2) C-Reactive Protein NT-Pro-B Natriuret Pep Total Protein Albumin Arterial Blood Glucose Urine WBC (Auto) Urine Creatinine 01/08/20 01/08/20 01/09/20 19:25 23:55 04:11 WBC RBC 3.43 L Hgb 8.9 L Hct 28.7 L MCHC 31 L RDW 17.6 H MCV MCH 26 L Lymph % (Auto) [place] % (Auto) 8.6 H [place] # Eos # Lymph # (Auto) [place] # (Auto) Eos # (Auto) Seg Neutrophils % Seg Neuts % (Manual) Baso # (Auto) Lymphocytes % (Manual) Monocytes % (Manual) Eosinophils % (Manual) Basophils % (Manual) Seg Neutrophils # Seg Neutrophils # Man Lymphocytes # (Manual) Monocytes # (Manual) Eosinophils # (Manual) Nucleated RBC % Basophils # (Manual) PT INR APTT Heparin Anti-Xa Level ABG pH POC ABG pO2 ABG pO2 ABG HCO3 ABG O2 Saturation ABG Base Excess POC ABG pCO2 ABG Hemoglobin ABG Oxyhemoglobin ABG Sodium ABG Chloride ABG Glucose Oxyhemoglobin Sodium Potassium Chloride Carbon Dioxide BUN Creatinine 0.7 L Glucose 117 H POC Glucose 132 H Lactic Acid Calcium Phosphorus Magnesium AST ALT Lactate Dehydrogenase Total Bilirubin Direct Bilirubin CK-MB (CK-2) C-Reactive Protein NT-Pro-B Natriuret Pep Total Protein Albumin Arterial Blood Glucose Urine WBC (Auto) Urine Creatinine 01/09/20 01/09/20 01/09/20 04:11 05:38 22:58 WBC RBC Hgb Hct MCHC RDW MCV MCH Lymph % (Auto) [place] % (Auto) [place] # Eos # Lymph # (Auto) [place] # (Auto) Eos # (Auto) Seg Neutrophils % Seg Neuts % (Manual) Baso # (Auto) Lymphocytes % (Manual) Monocytes % (Manual) Eosinophils % (Manual) Basophils % (Manual) Seg Neutrophils # Seg Neutrophils # Man Lymphocytes # (Manual) Monocytes # (Manual) Eosinophils # (Manual) Nucleated RBC % Basophils # (Manual) PT INR APTT Heparin Anti-Xa Level ABG pH POC ABG pO2 ABG pO2 ABG HCO3 ABG O2 Saturation ABG Base Excess POC ABG pCO2 ABG Hemoglobin ABG Oxyhemoglobin ABG Sodium ABG Chloride ABG Glucose Oxyhemoglobin Sodium 147 H Potassium 3.3 L D Chloride Carbon Dioxide 32 H BUN Creatinine 0.6 L Glucose 106 H POC Glucose 107 H 113 H Lactic Acid Calcium Phosphorus Magnesium AST ALT Lactate Dehydrogenase Total Bilirubin Direct Bilirubin CK-MB (CK-2) C-Reactive Protein NT-Pro-B Natriuret Pep Total Protein Albumin Arterial Blood Glucose Urine WBC (Auto) Urine Creatinine 01/10/20 01/10/20 01/10/20 04:05 11:36 17:54 WBC RBC Hgb Hct MCHC RDW MCV MCH Lymph % (Auto) [place] % (Auto) [place] # Eos # Lymph # (Auto) [place] # (Auto) Eos # (Auto) Seg Neutrophils % Seg Neuts % (Manual) Baso # (Auto) Lymphocytes % (Manual) Monocytes % (Manual) Eosinophils % (Manual) Basophils % (Manual) Seg Neutrophils # Seg Neutrophils # Man Lymphocytes # (Manual) Monocytes # (Manual) Eosinophils # (Manual) Nucleated RBC % Basophils # (Manual) PT INR APTT Heparin Anti-Xa Level ABG pH POC ABG pO2 ABG pO2 ABG HCO3 ABG O2 Saturation ABG Base Excess POC ABG pCO2 ABG Hemoglobin ABG Oxyhemoglobin ABG Sodium ABG Chloride ABG Glucose Oxyhemoglobin Sodium Potassium Chloride Carbon Dioxide BUN Creatinine 0.7 L Glucose 110 H POC Glucose 129 H 117 H Lactic Acid Calcium Phosphorus Magnesium AST ALT Lactate Dehydrogenase Total Bilirubin Direct Bilirubin CK-MB (CK-2) C-Reactive Protein NT-Pro-B Natriuret Pep Total Protein Albumin Arterial Blood Glucose Urine WBC (Auto) Urine Creatinine 01/10/20 01/11/20 01/11/20 23:52 03:19 12:09 WBC RBC Hgb Hct MCHC RDW MCV MCH Lymph % (Auto) [place] % (Auto) [place] # Eos # Lymph # (Auto) [place] # (Auto) Eos # (Auto) Seg Neutrophils % Seg Neuts % (Manual) Baso # (Auto) Lymphocytes % (Manual) Monocytes % (Manual) Eosinophils % (Manual) Basophils % (Manual) Seg Neutrophils # Seg Neutrophils # Man Lymphocytes # (Manual) Monocytes # (Manual) Eosinophils # (Manual) Nucleated RBC % Basophils # (Manual) PT INR APTT Heparin Anti-Xa Level ABG pH POC ABG pO2 ABG pO2 ABG HCO3 ABG O2 Saturation ABG Base Excess POC ABG pCO2 ABG Hemoglobin ABG Oxyhemoglobin ABG Sodium ABG Chloride ABG Glucose Oxyhemoglobin Sodium Potassium Chloride Carbon Dioxide BUN Creatinine Glucose POC Glucose 117 H 136 H 115 H Lactic Acid Calcium Phosphorus Magnesium AST ALT Lactate Dehydrogenase Total Bilirubin Direct Bilirubin CK-MB (CK-2) C-Reactive Protein NT-Pro-B Natriuret Pep Total Protein Albumin Arterial Blood Glucose Urine WBC (Auto) Urine Creatinine 01/11/20 01/11/20 01/12/20 18:27 23:28 00:23 WBC RBC Hgb 9.8 L Hct 31.6 L MCHC 31 L RDW 17.8 H MCV 83 L MCH 26 L Lymph % (Auto) [place] % (Auto) 8.0 H [place] # Eos # Lymph # (Auto) [place] # (Auto) Eos # (Auto) Seg Neutrophils % Seg Neuts % (Manual) Baso # (Auto) Lymphocytes % (Manual) Monocytes % (Manual) Eosinophils % (Manual) Basophils % (Manual) Seg Neutrophils # Seg Neutrophils # Man Lymphocytes # (Manual) Monocytes # (Manual) Eosinophils # (Manual) Nucleated RBC % Basophils # (Manual) PT INR APTT Heparin Anti-Xa Level ABG pH POC ABG pO2 ABG pO2 ABG HCO3 ABG O2 Saturation ABG Base Excess POC ABG pCO2 ABG Hemoglobin ABG Oxyhemoglobin ABG Sodium ABG Chloride ABG Glucose Oxyhemoglobin Sodium Potassium Chloride Carbon Dioxide BUN Creatinine Glucose POC Glucose 118 H 122 H Lactic Acid Calcium Phosphorus Magnesium AST ALT Lactate Dehydrogenase Total Bilirubin Direct Bilirubin CK-MB (CK-2) C-Reactive Protein NT-Pro-B Natriuret Pep Total Protein Albumin Arterial Blood Glucose Urine WBC (Auto) Urine Creatinine 01/12/20 01/12/20 01/12/20 00:23 04:18 04:18 WBC RBC Hgb 9.6 L Hct 30.9 L MCHC 31 L RDW 17.3 H MCV 81 L MCH 25 L Lymph % (Auto) [place] % (Auto) [place] # Eos # Lymph # (Auto) [place] # (Auto) Eos # (Auto) Seg Neutrophils % Seg Neuts % (Manual) Baso # (Auto) Lymphocytes % (Manual) Monocytes % (Manual) Eosinophils % (Manual) Basophils % (Manual) Seg Neutrophils # Seg Neutrophils # Man Lymphocytes # (Manual) Monocytes # (Manual) Eosinophils # (Manual) Nucleated RBC % Basophils # (Manual) PT INR APTT Heparin Anti-Xa Level ABG pH POC ABG pO2 ABG pO2 ABG HCO3 ABG O2 Saturation ABG Base Excess POC ABG pCO2 ABG Hemoglobin ABG Oxyhemoglobin ABG Sodium ABG Chloride ABG Glucose Oxyhemoglobin Sodium Potassium Chloride Carbon Dioxide BUN Creatinine 0.7 L 0.7 L Glucose 111 H 108 H POC Glucose Lactic Acid Calcium Phosphorus Magnesium AST ALT Lactate Dehydrogenase Total Bilirubin Direct Bilirubin CK-MB (CK-2) C-Reactive Protein NT-Pro-B Natriuret Pep Total Protein Albumin 2.6 L Arterial Blood Glucose Urine WBC (Auto) Urine Creatinine 01/12/20 01/12/20 01/12/20 06:03 12:27 13:58 WBC RBC Hgb Hct MCHC RDW MCV MCH Lymph % (Auto) [place] % (Auto) [place] # Eos # Lymph # (Auto) [place] # (Auto) Eos # (Auto) Seg Neutrophils % Seg Neuts % (Manual) Baso # (Auto) Lymphocytes % (Manual) Monocytes % (Manual) Eosinophils % (Manual) Basophils % (Manual) Seg Neutrophils # Seg Neutrophils # Man Lymphocytes # (Manual) Monocytes # (Manual) Eosinophils # (Manual) Nucleated RBC % Basophils # (Manual) PT INR APTT Heparin Anti-Xa Level ABG pH 7.453 H POC ABG pO2 76.6 L ABG pO2 ABG HCO3 ABG O2 Saturation ABG Base Excess POC ABG pCO2 ABG Hemoglobin 10.3 L ABG Oxyhemoglobin ABG Sodium ABG Chloride ABG Glucose 99 H Oxyhemoglobin Sodium Potassium Chloride Carbon Dioxide BUN Creatinine Glucose POC Glucose 128 H 121 H Lactic Acid Calcium Phosphorus Magnesium AST ALT Lactate Dehydrogenase Total Bilirubin Direct Bilirubin CK-MB (CK-2) C-Reactive Protein NT-Pro-B Natriuret Pep Total Protein Albumin Arterial Blood Glucose 99 H Urine WBC (Auto) Urine Creatinine 01/12/20 01/13/20 01/13/20 18:24 12:01 17:46 WBC RBC Hgb Hct MCHC RDW MCV MCH Lymph % (Auto) [place] % (Auto) [place] # Eos # Lymph # (Auto) [place] # (Auto) Eos # (Auto) Seg Neutrophils % Seg Neuts % (Manual) Baso # (Auto) Lymphocytes % (Manual) Monocytes % (Manual) Eosinophils % (Manual) Basophils % (Manual) Seg Neutrophils # Seg Neutrophils # Man Lymphocytes # (Manual) Monocytes # (Manual) Eosinophils # (Manual) Nucleated RBC % Basophils # (Manual) PT INR APTT Heparin Anti-Xa Level ABG pH POC ABG pO2 ABG pO2 ABG HCO3 ABG O2 Saturation ABG Base Excess POC ABG pCO2 ABG Hemoglobin ABG Oxyhemoglobin ABG Sodium ABG Chloride ABG Glucose Oxyhemoglobin Sodium Potassium Chloride Carbon Dioxide BUN Creatinine Glucose POC Glucose 119 H 107 H 124 H Lactic Acid Calcium Phosphorus Magnesium AST ALT Lactate Dehydrogenase Total Bilirubin Direct Bilirubin CK-MB (CK-2) C-Reactive Protein NT-Pro-B Natriuret Pep Total Protein Albumin Arterial Blood Glucose Urine WBC (Auto) Urine Creatinine 01/13/20 01/14/20 01/14/20 20:40 00:10 05:33 WBC RBC Hgb Hct MCHC RDW MCV MCH Lymph % (Auto) [place] % (Auto) [place] # Eos # Lymph # (Auto) [place] # (Auto) Eos # (Auto) Seg Neutrophils % Seg Neuts % (Manual) Baso # (Auto) Lymphocytes % (Manual) Monocytes % (Manual) Eosinophils % (Manual) Basophils % (Manual) Seg Neutrophils # Seg Neutrophils # Man Lymphocytes # (Manual) Monocytes # (Manual) Eosinophils # (Manual) Nucleated RBC % Basophils # (Manual) PT INR APTT Heparin Anti-Xa Level ABG pH POC ABG pO2 ABG pO2 65.3 L ABG HCO3 31.8 H ABG O2 Saturation 93.5 L ABG Base Excess 6.7 H POC ABG pCO2 ABG Hemoglobin 13.3 L ABG Oxyhemoglobin ABG Sodium ABG Chloride ABG Glucose Oxyhemoglobin 90.9 L Sodium Potassium Chloride Carbon Dioxide BUN Creatinine Glucose POC Glucose 111 H 111 H Lactic Acid Calcium Phosphorus Magnesium AST ALT Lactate Dehydrogenase Total Bilirubin Direct Bilirubin CK-MB (CK-2) C-Reactive Protein NT-Pro-B Natriuret Pep Total Protein Albumin Arterial Blood Glucose Urine WBC (Auto) Urine Creatinine 01/14/20 01/14/20 01/14/20 12:10 16:14 16:14 WBC RBC Hgb 10.6 L Hct 34.2 L MCHC 31 L RDW 18.3 H MCV 83 L MCH 26 L Lymph % (Auto) [place] % (Auto) 7.4 H [place] # Eos # Lymph # (Auto) [place] # (Auto) Eos # (Auto) Seg Neutrophils % 71.9 H Seg Neuts % (Manual) Baso # (Auto) Lymphocytes % (Manual) Monocytes % (Manual) Eosinophils % (Manual) Basophils % (Manual) Seg Neutrophils # Seg Neutrophils # Man Lymphocytes # (Manual) Monocytes # (Manual) Eosinophils # (Manual) Nucleated RBC % Basophils # (Manual) PT INR APTT Heparin Anti-Xa Level ABG pH POC ABG pO2 ABG pO2 ABG HCO3 ABG O2 Saturation ABG Base Excess POC ABG pCO2 ABG Hemoglobin ABG Oxyhemoglobin ABG Sodium ABG Chloride ABG Glucose Oxyhemoglobin Sodium Potassium Chloride Carbon Dioxide 31 H BUN Creatinine 0.6 L Glucose 131 H POC Glucose 139 H Lactic Acid Calcium Phosphorus Magnesium AST ALT Lactate Dehydrogenase Total Bilirubin Direct Bilirubin CK-MB (CK-2) C-Reactive Protein NT-Pro-B Natriuret Pep Total Protein Albumin Arterial Blood Glucose Urine WBC (Auto) Urine Creatinine 01/14/20 01/15/20 01/15/20 18:05 00:52 05:35 WBC RBC Hgb Hct MCHC RDW MCV MCH Lymph % (Auto) [place] % (Auto) [place] # Eos # Lymph # (Auto) [place] # (Auto) Eos # (Auto) Seg Neutrophils % Seg Neuts % (Manual) Baso # (Auto) Lymphocytes % (Manual) Monocytes % (Manual) Eosinophils % (Manual) Basophils % (Manual) Seg Neutrophils # Seg Neutrophils # Man Lymphocytes # (Manual) Monocytes # (Manual) Eosinophils # (Manual) Nucleated RBC % Basophils # (Manual) PT INR APTT Heparin Anti-Xa Level ABG pH POC ABG pO2 ABG pO2 ABG HCO3 ABG O2 Saturation ABG Base Excess POC ABG pCO2 ABG Hemoglobin ABG Oxyhemoglobin ABG Sodium ABG Chloride ABG Glucose Oxyhemoglobin Sodium Potassium Chloride Carbon Dioxide BUN Creatinine Glucose POC Glucose 147 H 140 H 159 H Lactic Acid Calcium Phosphorus Magnesium AST ALT Lactate Dehydrogenase Total Bilirubin Direct Bilirubin CK-MB (CK-2) C-Reactive Protein NT-Pro-B Natriuret Pep Total Protein Albumin Arterial Blood Glucose Urine WBC (Auto) Urine Creatinine 01/15/20 01/15/20 01/16/20 12:52 17:43 00:32 WBC RBC Hgb Hct MCHC RDW MCV MCH Lymph % (Auto) [place] % (Auto) [place] # Eos # Lymph # (Auto) [place] # (Auto) Eos # (Auto) Seg Neutrophils % Seg Neuts % (Manual) Baso # (Auto) Lymphocytes % (Manual) Monocytes % (Manual) Eosinophils % (Manual) Basophils % (Manual) Seg Neutrophils # Seg Neutrophils # Man Lymphocytes # (Manual) Monocytes # (Manual) Eosinophils # (Manual) Nucleated RBC % Basophils # (Manual) PT INR APTT Heparin Anti-Xa Level ABG pH POC ABG pO2 ABG pO2 ABG HCO3 ABG O2 Saturation ABG Base Excess POC ABG pCO2 ABG Hemoglobin ABG Oxyhemoglobin ABG Sodium ABG Chloride ABG Glucose Oxyhemoglobin Sodium Potassium Chloride Carbon Dioxide BUN Creatinine Glucose POC Glucose 164 H 167 H 153 H Lactic Acid Calcium Phosphorus Magnesium AST ALT Lactate Dehydrogenase Total Bilirubin Direct Bilirubin CK-MB (CK-2) C-Reactive Protein NT-Pro-B Natriuret Pep Total Protein Albumin Arterial Blood Glucose Urine WBC (Auto) Urine Creatinine 01/16/20 01/16/20 01/17/20 05:46 11:48 06:38 WBC RBC Hgb Hct MCHC RDW MCV MCH Lymph % (Auto) [place] % (Auto) [place] # Eos # Lymph # (Auto) [place] # (Auto) Eos # (Auto) Seg Neutrophils % Seg Neuts % (Manual) Baso # (Auto) Lymphocytes % (Manual) Monocytes % (Manual) Eosinophils % (Manual) Basophils % (Manual) Seg Neutrophils # Seg Neutrophils # Man Lymphocytes # (Manual) Monocytes # (Manual) Eosinophils # (Manual) Nucleated RBC % Basophils # (Manual) PT INR APTT Heparin Anti-Xa Level ABG pH POC ABG pO2 ABG pO2 ABG HCO3 ABG O2 Saturation ABG Base Excess POC ABG pCO2 ABG Hemoglobin ABG Oxyhemoglobin ABG Sodium ABG Chloride ABG Glucose Oxyhemoglobin Sodium Potassium Chloride Carbon Dioxide BUN Creatinine Glucose POC Glucose 163 H 155 H 116 H Lactic Acid Calcium Phosphorus Magnesium AST ALT Lactate Dehydrogenase Total Bilirubin Direct Bilirubin CK-MB (CK-2) C-Reactive Protein NT-Pro-B Natriuret Pep Total Protein Albumin Arterial Blood Glucose Urine WBC (Auto) Urine Creatinine 01/17/20 01/17/20 01/18/20 11:36 17:43 00:12 WBC RBC Hgb Hct MCHC RDW MCV MCH Lymph % (Auto) [place] % (Auto) [place] # Eos # Lymph # (Auto) [place] # (Auto) Eos # (Auto) Seg Neutrophils % Seg Neuts % (Manual) Baso # (Auto) Lymphocytes % (Manual) Monocytes % (Manual) Eosinophils % (Manual) Basophils % (Manual) Seg Neutrophils # Seg Neutrophils # Man Lymphocytes # (Manual) Monocytes # (Manual) Eosinophils # (Manual) Nucleated RBC % Basophils # (Manual) PT INR APTT Heparin Anti-Xa Level ABG pH POC ABG pO2 ABG pO2 ABG HCO3 ABG O2 Saturation ABG Base Excess POC ABG pCO2 ABG Hemoglobin ABG Oxyhemoglobin ABG Sodium ABG Chloride ABG Glucose Oxyhemoglobin Sodium Potassium Chloride Carbon Dioxide BUN Creatinine Glucose POC Glucose 110 H 134 H 108 H Lactic Acid Calcium Phosphorus Magnesium AST ALT Lactate Dehydrogenase Total Bilirubin Direct Bilirubin CK-MB (CK-2) C-Reactive Protein NT-Pro-B Natriuret Pep Total Protein Albumin Arterial Blood Glucose Urine WBC (Auto) Urine Creatinine 01/18/20 01/18/20 01/18/20 05:37 06:46 06:46 WBC RBC Hgb 10.1 L Hct 32.2 L MCHC 31 L RDW 18.1 H MCV 81 L MCH 25 L Lymph % (Auto) [place] % (Auto) [place] # Eos # Lymph # (Auto) [place] # (Auto) Eos # (Auto) Seg Neutrophils % 71.9 H Seg Neuts % (Manual) Baso # (Auto) Lymphocytes % (Manual) Monocytes % (Manual) Eosinophils % (Manual) Basophils % (Manual) Seg Neutrophils # Seg Neutrophils # Man Lymphocytes # (Manual) Monocytes # (Manual) Eosinophils # (Manual) Nucleated RBC % Basophils # (Manual) PT INR APTT Heparin Anti-Xa Level ABG pH POC ABG pO2 ABG pO2 ABG HCO3 ABG O2 Saturation ABG Base Excess POC ABG pCO2 ABG Hemoglobin ABG Oxyhemoglobin ABG Sodium ABG Chloride ABG Glucose Oxyhemoglobin Sodium Potassium Chloride Carbon Dioxide BUN Creatinine 0.7 L Glucose 155 H POC Glucose 168 H Lactic Acid Calcium Phosphorus Magnesium AST ALT Lactate Dehydrogenase Total Bilirubin Direct Bilirubin CK-MB (CK-2) C-Reactive Protein NT-Pro-B Natriuret Pep Total Protein Albumin Arterial Blood Glucose Urine WBC (Auto) Urine Creatinine 01/18/20 01/18/20 01/18/20 12:05 17:14 23:28 WBC RBC Hgb Hct MCHC RDW MCV MCH Lymph % (Auto) [place] % (Auto) [place] # Eos # Lymph # (Auto) [place] # (Auto) Eos # (Auto) Seg Neutrophils % Seg Neuts % (Manual) Baso # (Auto) Lymphocytes % (Manual) Monocytes % (Manual) Eosinophils % (Manual) Basophils % (Manual) Seg Neutrophils # Seg Neutrophils # Man Lymphocytes # (Manual) Monocytes # (Manual) Eosinophils # (Manual) Nucleated RBC % Basophils # (Manual) PT INR APTT Heparin Anti-Xa Level ABG pH POC ABG pO2 ABG pO2 ABG HCO3 ABG O2 Saturation ABG Base Excess POC ABG pCO2 ABG Hemoglobin ABG Oxyhemoglobin ABG Sodium ABG Chloride ABG Glucose Oxyhemoglobin Sodium Potassium Chloride Carbon Dioxide BUN Creatinine Glucose POC Glucose 128 H 126 H 128 H Lactic Acid Calcium Phosphorus Magnesium AST ALT Lactate Dehydrogenase Total Bilirubin Direct Bilirubin CK-MB (CK-2) C-Reactive Protein NT-Pro-B Natriuret Pep Total Protein Albumin Arterial Blood Glucose Urine WBC (Auto) Urine Creatinine 01/19/20 01/19/20 01/19/20 05:39 12:33 17:36 WBC RBC Hgb Hct MCHC RDW MCV MCH Lymph % (Auto) [place] % (Auto) [place] # Eos # Lymph # (Auto) [place] # (Auto) Eos # (Auto) Seg Neutrophils % Seg Neuts % (Manual) Baso # (Auto) Lymphocytes % (Manual) Monocytes % (Manual) Eosinophils % (Manual) Basophils % (Manual) Seg Neutrophils # Seg Neutrophils # Man Lymphocytes # (Manual) Monocytes # (Manual) Eosinophils # (Manual) Nucleated RBC % Basophils # (Manual) PT INR APTT Heparin Anti-Xa Level ABG pH POC ABG pO2 ABG pO2 ABG HCO3 ABG O2 Saturation ABG Base Excess POC ABG pCO2 ABG Hemoglobin ABG Oxyhemoglobin ABG Sodium ABG Chloride ABG Glucose Oxyhemoglobin Sodium Potassium Chloride Carbon Dioxide BUN Creatinine Glucose POC Glucose 164 H 171 H 152 H Lactic Acid Calcium Phosphorus Magnesium AST ALT Lactate Dehydrogenase Total Bilirubin Direct Bilirubin CK-MB (CK-2) C-Reactive Protein NT-Pro-B Natriuret Pep Total Protein Albumin Arterial Blood Glucose Urine WBC (Auto) Urine Creatinine 01/20/20 01/20/20 01/20/20 00:12 05:20 05:35 WBC RBC Hgb 9.2 L Hct 29.4 L MCHC 31 L RDW 17.9 H MCV 81 L MCH 25 L Lymph % (Auto) [place] % (Auto) [place] # Eos # Lymph # (Auto) [place] # (Auto) Eos # (Auto) Seg Neutrophils % Seg Neuts % (Manual) Baso # (Auto) Lymphocytes % (Manual) Monocytes % (Manual) Eosinophils % (Manual) Basophils % (Manual) Seg Neutrophils # Seg Neutrophils # Man Lymphocytes # (Manual) Monocytes # (Manual) Eosinophils # (Manual) Nucleated RBC % Basophils # (Manual) PT INR APTT Heparin Anti-Xa Level ABG pH POC ABG pO2 ABG pO2 ABG HCO3 ABG O2 Saturation ABG Base Excess POC ABG pCO2 ABG Hemoglobin ABG Oxyhemoglobin ABG Sodium ABG Chloride ABG Glucose Oxyhemoglobin Sodium Potassium Chloride Carbon Dioxide BUN Creatinine Glucose POC Glucose 120 H 136 H Lactic Acid Calcium Phosphorus Magnesium AST ALT Lactate Dehydrogenase Total Bilirubin Direct Bilirubin CK-MB (CK-2) C-Reactive Protein NT-Pro-B Natriuret Pep Total Protein Albumin Arterial Blood Glucose Urine WBC (Auto) Urine Creatinine 01/20/20 01/20/20 01/20/20 05:40 11:58 14:55 WBC RBC Hgb 9.0 L Hct 28.3 L MCHC RDW MCV MCH Lymph % (Auto) [place] % (Auto) [place] # Eos # Lymph # (Auto) [place] # (Auto) Eos # (Auto) Seg Neutrophils % Seg Neuts % (Manual) Baso # (Auto) Lymphocytes % (Manual) Monocytes % (Manual) Eosinophils % (Manual) Basophils % (Manual) Seg Neutrophils # Seg Neutrophils # Man Lymphocytes # (Manual) Monocytes # (Manual) Eosinophils # (Manual) Nucleated RBC % Basophils # (Manual) PT INR APTT Heparin Anti-Xa Level ABG pH POC ABG pO2 ABG pO2 ABG HCO3 ABG O2 Saturation ABG Base Excess POC ABG pCO2 ABG Hemoglobin ABG Oxyhemoglobin ABG Sodium ABG Chloride ABG Glucose Oxyhemoglobin Sodium Potassium Chloride Carbon Dioxide 32 H BUN 22 H Creatinine 0.7 L Glucose 128 H POC Glucose 152 H Lactic Acid Calcium Phosphorus Magnesium AST ALT Lactate Dehydrogenase Total Bilirubin Direct Bilirubin CK-MB (CK-2) C-Reactive Protein NT-Pro-B Natriuret Pep Total Protein Albumin Arterial Blood Glucose Urine WBC (Auto) Urine Creatinine 01/20/20 01/20/20 01/20/20 14:55 18:14 21:35 WBC RBC Hgb Hct MCHC RDW MCV MCH Lymph % (Auto) [place] % (Auto) [place] # Eos # Lymph # (Auto) [place] # (Auto) Eos # (Auto) Seg Neutrophils % Seg Neuts % (Manual) Baso # (Auto) Lymphocytes % (Manual) Monocytes % (Manual) Eosinophils % (Manual) Basophils % (Manual) Seg Neutrophils # Seg Neutrophils # Man Lymphocytes # (Manual) Monocytes # (Manual) Eosinophils # (Manual) Nucleated RBC % Basophils # (Manual) PT 20.4 H INR 1.72 H APTT 40.6 H Heparin Anti-Xa Level > 2.00 H ABG pH POC ABG pO2 ABG pO2 ABG HCO3 ABG O2 Saturation ABG Base Excess POC ABG pCO2 ABG Hemoglobin ABG Oxyhemoglobin ABG Sodium ABG Chloride ABG Glucose Oxyhemoglobin Sodium Potassium Chloride Carbon Dioxide BUN Creatinine Glucose POC Glucose 150 H Lactic Acid Calcium Phosphorus Magnesium AST ALT Lactate Dehydrogenase Total Bilirubin Direct Bilirubin CK-MB (CK-2) C-Reactive Protein NT-Pro-B Natriuret Pep Total Protein Albumin Arterial Blood Glucose Urine WBC (Auto) Urine Creatinine 01/21/20 01/21/20 01/21/20 00:30 05:47 05:59 WBC RBC Hgb Hct MCHC RDW MCV MCH Lymph % (Auto) [place] % (Auto) [place] # Eos # Lymph # (Auto) [place] # (Auto) Eos # (Auto) Seg Neutrophils % Seg Neuts % (Manual) Baso # (Auto) Lymphocytes % (Manual) Monocytes % (Manual) Eosinophils % (Manual) Basophils % (Manual) Seg Neutrophils # Seg Neutrophils # Man Lymphocytes # (Manual) Monocytes # (Manual) Eosinophils # (Manual) Nucleated RBC % Basophils # (Manual) PT INR APTT Heparin Anti-Xa Level 1.93 H ABG pH POC ABG pO2 ABG pO2 ABG HCO3 ABG O2 Saturation ABG Base Excess POC ABG pCO2 ABG Hemoglobin ABG Oxyhemoglobin ABG Sodium ABG Chloride ABG Glucose Oxyhemoglobin Sodium Potassium Chloride Carbon Dioxide BUN Creatinine Glucose POC Glucose 126 H 148 H Lactic Acid Calcium Phosphorus Magnesium AST ALT Lactate Dehydrogenase Total Bilirubin Direct Bilirubin CK-MB (CK-2) C-Reactive Protein NT-Pro-B Natriuret Pep Total Protein Albumin Arterial Blood Glucose Urine WBC (Auto) Urine Creatinine 01/21/20 01/21/20 01/21/20 12:32 18:20 23:54 WBC RBC Hgb Hct MCHC RDW MCV MCH Lymph % (Auto) [place] % (Auto) [place] # Eos # Lymph # (Auto) [place] # (Auto) Eos # (Auto) Seg Neutrophils % Seg Neuts % (Manual) Baso # (Auto) Lymphocytes % (Manual) Monocytes % (Manual) Eosinophils % (Manual) Basophils % (Manual) Seg Neutrophils # Seg Neutrophils # Man Lymphocytes # (Manual) Monocytes # (Manual) Eosinophils # (Manual) Nucleated RBC % Basophils # (Manual) PT INR APTT Heparin Anti-Xa Level 1.28 H ABG pH POC ABG pO2 ABG pO2 ABG HCO3 ABG O2 Saturation ABG Base Excess POC ABG pCO2 ABG Hemoglobin ABG Oxyhemoglobin ABG Sodium ABG Chloride ABG Glucose Oxyhemoglobin Sodium Potassium Chloride Carbon Dioxide BUN Creatinine Glucose POC Glucose 112 H 146 H Lactic Acid Calcium Phosphorus Magnesium AST ALT Lactate Dehydrogenase Total Bilirubin Direct Bilirubin CK-MB (CK-2) C-Reactive Protein NT-Pro-B Natriuret Pep Total Protein Albumin Arterial Blood Glucose Urine WBC (Auto) Urine Creatinine 01/22/20 01/22/20 01/22/20 04:45 04:45 05:48 WBC RBC Hgb 9.3 L Hct 29.0 L MCHC RDW MCV MCH Lymph % (Auto) [place] % (Auto) [place] # Eos # Lymph # (Auto) [place] # (Auto) Eos # (Auto) Seg Neutrophils % Seg Neuts % (Manual) Baso # (Auto) Lymphocytes % (Manual) Monocytes % (Manual) Eosinophils % (Manual) Basophils % (Manual) Seg Neutrophils # Seg Neutrophils # Man Lymphocytes # (Manual) Monocytes # (Manual) Eosinophils # (Manual) Nucleated RBC % Basophils # (Manual) PT INR APTT Heparin Anti-Xa Level 1.34 H ABG pH POC ABG pO2 ABG pO2 ABG HCO3 ABG O2 Saturation ABG Base Excess POC ABG pCO2 ABG Hemoglobin ABG Oxyhemoglobin ABG Sodium ABG Chloride ABG Glucose Oxyhemoglobin Sodium Potassium Chloride Carbon Dioxide BUN Creatinine Glucose POC Glucose 142 H Lactic Acid Calcium Phosphorus Magnesium AST ALT Lactate Dehydrogenase Total Bilirubin Direct Bilirubin CK-MB (CK-2) C-Reactive Protein NT-Pro-B Natriuret Pep Total Protein Albumin Arterial Blood Glucose Urine WBC (Auto) Urine Creatinine 01/22/20 01/22/20 01/22/20 08:09 08:22 09:58 WBC RBC Hgb Hct MCHC RDW MCV MCH Lymph % (Auto) [place] % (Auto) [place] # Eos # Lymph # (Auto) [place] # (Auto) Eos # (Auto) Seg Neutrophils % Seg Neuts % (Manual) Baso # (Auto) Lymphocytes % (Manual) Monocytes % (Manual) Eosinophils % (Manual) Basophils % (Manual) Seg Neutrophils # Seg Neutrophils # Man Lymphocytes # (Manual) Monocytes # (Manual) Eosinophils # (Manual) Nucleated RBC % Basophils # (Manual) PT 16.9 H INR 1.34 H APTT Heparin Anti-Xa Level ABG pH POC ABG pO2 ABG pO2 ABG HCO3 ABG O2 Saturation ABG Base Excess POC ABG pCO2 ABG Hemoglobin ABG Oxyhemoglobin ABG Sodium ABG Chloride ABG Glucose Oxyhemoglobin Sodium Potassium Chloride 97.8 L Carbon Dioxide BUN 29 H Creatinine Glucose 128 H POC Glucose 131 H Lactic Acid Calcium Phosphorus Magnesium AST ALT Lactate Dehydrogenase Total Bilirubin Direct Bilirubin CK-MB (CK-2) C-Reactive Protein NT-Pro-B Natriuret Pep Total Protein Albumin Arterial Blood Glucose Urine WBC (Auto) Urine Creatinine 01/22/20 01/22/20 01/22/20 12:44 16:13 18:18 WBC RBC Hgb Hct MCHC RDW MCV MCH Lymph % (Auto) [place] % (Auto) [place] # Eos # Lymph # (Auto) [place] # (Auto) Eos # (Auto) Seg Neutrophils % Seg Neuts % (Manual) Baso # (Auto) Lymphocytes % (Manual) Monocytes % (Manual) Eosinophils % (Manual) Basophils % (Manual) Seg Neutrophils # Seg Neutrophils # Man Lymphocytes # (Manual) Monocytes # (Manual) Eosinophils # (Manual) Nucleated RBC % Basophils # (Manual) PT INR APTT Heparin Anti-Xa Level ABG pH POC ABG pO2 ABG pO2 ABG HCO3 ABG O2 Saturation ABG Base Excess POC ABG pCO2 ABG Hemoglobin ABG Oxyhemoglobin ABG Sodium ABG Chloride ABG Glucose Oxyhemoglobin Sodium Potassium Chloride Carbon Dioxide BUN Creatinine Glucose POC Glucose 156 H 133 H 155 H Lactic Acid Calcium Phosphorus Magnesium AST ALT Lactate Dehydrogenase Total Bilirubin Direct Bilirubin CK-MB (CK-2) C-Reactive Protein NT-Pro-B Natriuret Pep Total Protein Albumin Arterial Blood Glucose Urine WBC (Auto) Urine Creatinine 01/22/20 01/23/20 01/23/20 23:22 05:37 12:59 WBC RBC Hgb Hct MCHC RDW MCV MCH Lymph % (Auto) [place] % (Auto) [place] # Eos # Lymph # (Auto) [place] # (Auto) Eos # (Auto) Seg Neutrophils % Seg Neuts % (Manual) Baso # (Auto) Lymphocytes % (Manual) Monocytes % (Manual) Eosinophils % (Manual) Basophils % (Manual) Seg Neutrophils # Seg Neutrophils # Man Lymphocytes # (Manual) Monocytes # (Manual) Eosinophils # (Manual) Nucleated RBC % Basophils # (Manual) PT INR APTT Heparin Anti-Xa Level ABG pH POC ABG pO2 ABG pO2 ABG HCO3 ABG O2 Saturation ABG Base Excess POC ABG pCO2 ABG Hemoglobin ABG Oxyhemoglobin ABG Sodium ABG Chloride ABG Glucose Oxyhemoglobin Sodium Potassium Chloride Carbon Dioxide BUN Creatinine Glucose POC Glucose 148 H 163 H 175 H Lactic Acid Calcium Phosphorus Magnesium AST ALT Lactate Dehydrogenase Total Bilirubin Direct Bilirubin CK-MB (CK-2) C-Reactive Protein NT-Pro-B Natriuret Pep Total Protein Albumin Arterial Blood Glucose Urine WBC (Auto) Urine Creatinine 01/23/20 01/23/20 01/24/20 17:28 23:56 04:30 WBC RBC 3.46 L Hgb 8.8 L Hct 27.8 L MCHC RDW 18.2 H MCV 81 L MCH 25 L Lymph % (Auto) [place] % (Auto) 7.8 H [place] # Eos # Lymph # (Auto) [place] # (Auto) Eos # (Auto) Seg Neutrophils % Seg Neuts % (Manual) Baso # (Auto) Lymphocytes % (Manual) Monocytes % (Manual) Eosinophils % (Manual) Basophils % (Manual) Seg Neutrophils # Seg Neutrophils # Man Lymphocytes # (Manual) Monocytes # (Manual) Eosinophils # (Manual) Nucleated RBC % Basophils # (Manual) PT INR APTT Heparin Anti-Xa Level ABG pH POC ABG pO2 ABG pO2 ABG HCO3 ABG O2 Saturation ABG Base Excess POC ABG pCO2 ABG Hemoglobin ABG Oxyhemoglobin ABG Sodium ABG Chloride ABG Glucose Oxyhemoglobin Sodium Potassium Chloride Carbon Dioxide BUN Creatinine Glucose POC Glucose 165 H 177 H Lactic Acid Calcium Phosphorus Magnesium AST ALT Lactate Dehydrogenase Total Bilirubin Direct Bilirubin CK-MB (CK-2) C-Reactive Protein NT-Pro-B Natriuret Pep Total Protein Albumin Arterial Blood Glucose Urine WBC (Auto) Urine Creatinine 01/24/20 01/24/20 01/24/20 04:30 07:18 12:06 WBC RBC Hgb Hct MCHC RDW MCV MCH Lymph % (Auto) [place] % (Auto) [place] # Eos # Lymph # (Auto) [place] # (Auto) Eos # (Auto) Seg Neutrophils % Seg Neuts % (Manual) Baso # (Auto) Lymphocytes % (Manual) Monocytes % (Manual) Eosinophils % (Manual) Basophils % (Manual) Seg Neutrophils # Seg Neutrophils # Man Lymphocytes # (Manual) Monocytes # (Manual) Eosinophils # (Manual) Nucleated RBC % Basophils # (Manual) PT INR APTT Heparin Anti-Xa Level ABG pH POC ABG pO2 ABG pO2 ABG HCO3 ABG O2 Saturation ABG Base Excess POC ABG pCO2 ABG Hemoglobin ABG Oxyhemoglobin ABG Sodium ABG Chloride ABG Glucose Oxyhemoglobin Sodium Potassium Chloride 97.9 L Carbon Dioxide BUN 31 H Creatinine Glucose 146 H POC Glucose 151 H 133 H Lactic Acid Calcium Phosphorus Magnesium AST ALT Lactate Dehydrogenase Total Bilirubin Direct Bilirubin CK-MB (CK-2) C-Reactive Protein NT-Pro-B Natriuret Pep Total Protein Albumin Arterial Blood Glucose Urine WBC (Auto) Urine Creatinine 01/24/20 01/25/20 01/25/20 17:36 00:08 04:25 WBC RBC 3.50 L Hgb 8.7 L Hct 27.9 L MCHC 31 L RDW 18.2 H MCV 80 L MCH 25 L Lymph % (Auto) [place] % (Auto) 8.5 H [place] # Eos # Lymph # (Auto) [place] # (Auto) Eos # (Auto) Seg Neutrophils % Seg Neuts % (Manual) Baso # (Auto) Lymphocytes % (Manual) Monocytes % (Manual) Eosinophils % (Manual) Basophils % (Manual) Seg Neutrophils # Seg Neutrophils # Man Lymphocytes # (Manual) Monocytes # (Manual) Eosinophils # (Manual) Nucleated RBC % Basophils # (Manual) PT INR APTT Heparin Anti-Xa Level ABG pH POC ABG pO2 ABG pO2 ABG HCO3 ABG O2 Saturation ABG Base Excess POC ABG pCO2 ABG Hemoglobin ABG Oxyhemoglobin ABG Sodium ABG Chloride ABG Glucose Oxyhemoglobin Sodium Potassium Chloride Carbon Dioxide BUN Creatinine Glucose POC Glucose 133 H 129 H Lactic Acid Calcium Phosphorus Magnesium AST ALT Lactate Dehydrogenase Total Bilirubin Direct Bilirubin CK-MB (CK-2) C-Reactive Protein NT-Pro-B Natriuret Pep Total Protein Albumin Arterial Blood Glucose Urine WBC (Auto) Urine Creatinine 01/25/20 01/25/20 01/25/20 04:25 05:38 11:52 WBC RBC Hgb Hct MCHC RDW MCV MCH Lymph % (Auto) [place] % (Auto) [place] # Eos # Lymph # (Auto) [place] # (Auto) Eos # (Auto) Seg Neutrophils % Seg Neuts % (Manual) Baso # (Auto) Lymphocytes % (Manual) Monocytes % (Manual) Eosinophils % (Manual) Basophils % (Manual) Seg Neutrophils # Seg Neutrophils # Man Lymphocytes # (Manual) Monocytes # (Manual) Eosinophils # (Manual) Nucleated RBC % Basophils # (Manual) PT INR APTT Heparin Anti-Xa Level ABG pH POC ABG pO2 ABG pO2 ABG HCO3 ABG O2 Saturation ABG Base Excess POC ABG pCO2 ABG Hemoglobin ABG Oxyhemoglobin ABG Sodium ABG Chloride ABG Glucose Oxyhemoglobin Sodium Potassium Chloride Carbon Dioxide BUN 30 H Creatinine Glucose 134 H POC Glucose 129 H 134 H Lactic Acid Calcium Phosphorus Magnesium AST ALT Lactate Dehydrogenase Total Bilirubin Direct Bilirubin CK-MB (CK-2) C-Reactive Protein NT-Pro-B Natriuret Pep Total Protein Albumin Arterial Blood Glucose Urine WBC (Auto) Urine Creatinine 01/25/20 01/25/20 01/26/20 17:13 21:02 00:59 WBC RBC Hgb Hct MCHC RDW MCV MCH Lymph % (Auto) [place] % (Auto) [place] # Eos # Lymph # (Auto) [place] # (Auto) Eos # (Auto) Seg Neutrophils % Seg Neuts % (Manual) Baso # (Auto) Lymphocytes % (Manual) Monocytes % (Manual) Eosinophils % (Manual) Basophils % (Manual) Seg Neutrophils # Seg Neutrophils # Man Lymphocytes # (Manual) Monocytes # (Manual) Eosinophils # (Manual) Nucleated RBC % Basophils # (Manual) PT INR APTT Heparin Anti-Xa Level ABG pH POC ABG pO2 ABG pO2 57.5 L ABG HCO3 31.7 H ABG O2 Saturation 90.3 L ABG Base Excess 6.6 H POC ABG pCO2 ABG Hemoglobin 13.0 L ABG Oxyhemoglobin ABG Sodium ABG Chloride ABG Glucose Oxyhemoglobin 87.5 L Sodium Potassium Chloride Carbon Dioxide BUN Creatinine Glucose POC Glucose 124 H 196 H Lactic Acid Calcium Phosphorus Magnesium AST ALT Lactate Dehydrogenase Total Bilirubin Direct Bilirubin CK-MB (CK-2) C-Reactive Protein NT-Pro-B Natriuret Pep Total Protein Albumin Arterial Blood Glucose Urine WBC (Auto) Urine Creatinine 01/26/20 01/26/20 01/26/20 03:20 05:46 12:46 WBC RBC Hgb 9.2 L Hct 29.4 L MCHC RDW MCV MCH Lymph % (Auto) [place] % (Auto) [place] # Eos # Lymph # (Auto) [place] # (Auto) Eos # (Auto) Seg Neutrophils % Seg Neuts % (Manual) Baso # (Auto) Lymphocytes % (Manual) Monocytes % (Manual) Eosinophils % (Manual) Basophils % (Manual) Seg Neutrophils # Seg Neutrophils # Man Lymphocytes # (Manual) Monocytes # (Manual) Eosinophils # (Manual) Nucleated RBC % Basophils # (Manual) PT INR APTT Heparin Anti-Xa Level ABG pH POC ABG pO2 ABG pO2 ABG HCO3 ABG O2 Saturation ABG Base Excess POC ABG pCO2 ABG Hemoglobin ABG Oxyhemoglobin ABG Sodium ABG Chloride ABG Glucose Oxyhemoglobin Sodium Potassium Chloride Carbon Dioxide BUN Creatinine Glucose POC Glucose 141 H 122 H Lactic Acid Calcium Phosphorus Magnesium AST ALT Lactate Dehydrogenase Total Bilirubin Direct Bilirubin CK-MB (CK-2) C-Reactive Protein NT-Pro-B Natriuret Pep Total Protein Albumin Arterial Blood Glucose Urine WBC (Auto) Urine Creatinine 01/26/20 01/26/20 01/27/20 18:03 23:55 04:47 WBC RBC Hgb Hct MCHC RDW MCV MCH Lymph % (Auto) [place] % (Auto) [place] # Eos # Lymph # (Auto) [place] # (Auto) Eos # (Auto) Seg Neutrophils % Seg Neuts % (Manual) Baso # (Auto) Lymphocytes % (Manual) Monocytes % (Manual) Eosinophils % (Manual) Basophils % (Manual) Seg Neutrophils # Seg Neutrophils # Man Lymphocytes # (Manual) Monocytes # (Manual) Eosinophils # (Manual) Nucleated RBC % Basophils # (Manual) PT INR APTT Heparin Anti-Xa Level ABG pH POC ABG pO2 ABG pO2 ABG HCO3 ABG O2 Saturation ABG Base Excess POC ABG pCO2 ABG Hemoglobin ABG Oxyhemoglobin ABG Sodium ABG Chloride ABG Glucose Oxyhemoglobin Sodium Potassium Chloride Carbon Dioxide BUN 30 H Creatinine 0.7 L Glucose 135 H POC Glucose 142 H 159 H Lactic Acid Calcium Phosphorus Magnesium AST ALT Lactate Dehydrogenase Total Bilirubin Direct Bilirubin CK-MB (CK-2) C-Reactive Protein NT-Pro-B Natriuret Pep Total Protein Albumin Arterial Blood Glucose Urine WBC (Auto) Urine Creatinine 01/27/20 01/27/20 01/27/20 05:43 12:06 17:16 WBC RBC Hgb Hct MCHC RDW MCV MCH Lymph % (Auto) [place] % (Auto) [place] # Eos # Lymph # (Auto) [place] # (Auto) Eos # (Auto) Seg Neutrophils % Seg Neuts % (Manual) Baso # (Auto) Lymphocytes % (Manual) Monocytes % (Manual) Eosinophils % (Manual) Basophils % (Manual) Seg Neutrophils # Seg Neutrophils # Man Lymphocytes # (Manual) Monocytes # (Manual) Eosinophils # (Manual) Nucleated RBC % Basophils # (Manual) PT INR APTT Heparin Anti-Xa Level ABG pH POC ABG pO2 ABG pO2 ABG HCO3 ABG O2 Saturation ABG Base Excess POC ABG pCO2 ABG Hemoglobin ABG Oxyhemoglobin ABG Sodium ABG Chloride ABG Glucose Oxyhemoglobin Sodium Potassium Chloride Carbon Dioxide BUN Creatinine Glucose POC Glucose 143 H 142 H 128 H Lactic Acid Calcium Phosphorus Magnesium AST ALT Lactate Dehydrogenase Total Bilirubin Direct Bilirubin CK-MB (CK-2) C-Reactive Protein NT-Pro-B Natriuret Pep Total Protein Albumin Arterial Blood Glucose Urine WBC (Auto) Urine Creatinine 01/27/20 01/28/20 01/28/20 23:55 04:37 05:55 WBC RBC Hgb 9.4 L Hct 29.9 L MCHC RDW MCV MCH Lymph % (Auto) [place] % (Auto) [place] # Eos # Lymph # (Auto) [place] # (Auto) Eos # (Auto) Seg Neutrophils % Seg Neuts % (Manual) Baso # (Auto) Lymphocytes % (Manual) Monocytes % (Manual) Eosinophils % (Manual) Basophils % (Manual) Seg Neutrophils # Seg Neutrophils # Man Lymphocytes # (Manual) Monocytes # (Manual) Eosinophils # (Manual) Nucleated RBC % Basophils # (Manual) PT INR APTT Heparin Anti-Xa Level ABG pH POC ABG pO2 ABG pO2 ABG HCO3 ABG O2 Saturation ABG Base Excess POC ABG pCO2 ABG Hemoglobin ABG Oxyhemoglobin ABG Sodium ABG Chloride ABG Glucose Oxyhemoglobin Sodium Potassium Chloride Carbon Dioxide BUN Creatinine Glucose POC Glucose 166 H 169 H Lactic Acid Calcium Phosphorus Magnesium AST ALT Lactate Dehydrogenase Total Bilirubin Direct Bilirubin CK-MB (CK-2) C-Reactive Protein NT-Pro-B Natriuret Pep Total Protein Albumin Arterial Blood Glucose Urine WBC (Auto) Urine Creatinine 01/28/20 01/28/20 01/28/20 11:58 17:26 23:46 WBC RBC Hgb Hct MCHC RDW MCV MCH Lymph % (Auto) [place] % (Auto) [place] # Eos # Lymph # (Auto) [place] # (Auto) Eos # (Auto) Seg Neutrophils % Seg Neuts % (Manual) Baso # (Auto) Lymphocytes % (Manual) Monocytes % (Manual) Eosinophils % (Manual) Basophils % (Manual) Seg Neutrophils # Seg Neutrophils # Man Lymphocytes # (Manual) Monocytes # (Manual) Eosinophils # (Manual) Nucleated RBC % Basophils # (Manual) PT INR APTT Heparin Anti-Xa Level ABG pH POC ABG pO2 ABG pO2 ABG HCO3 ABG O2 Saturation ABG Base Excess POC ABG pCO2 ABG Hemoglobin ABG Oxyhemoglobin ABG Sodium ABG Chloride ABG Glucose Oxyhemoglobin Sodium Potassium Chloride Carbon Dioxide BUN Creatinine Glucose POC Glucose 130 H 126 H 150 H Lactic Acid Calcium Phosphorus Magnesium AST ALT Lactate Dehydrogenase Total Bilirubin Direct Bilirubin CK-MB (CK-2) C-Reactive Protein NT-Pro-B Natriuret Pep Total Protein Albumin Arterial Blood Glucose Urine WBC (Auto) Urine Creatinine 01/29/20 01/29/20 01/29/20 04:55 06:00 12:28 WBC RBC Hgb Hct MCHC RDW MCV MCH Lymph % (Auto) [place] % (Auto) [place] # Eos # Lymph # (Auto) [place] # (Auto) Eos # (Auto) Seg Neutrophils % Seg Neuts % (Manual) Baso # (Auto) Lymphocytes % (Manual) Monocytes % (Manual) Eosinophils % (Manual) Basophils % (Manual) Seg Neutrophils # Seg Neutrophils # Man Lymphocytes # (Manual) Monocytes # (Manual) Eosinophils # (Manual) Nucleated RBC % Basophils # (Manual) PT INR APTT Heparin Anti-Xa Level ABG pH POC ABG pO2 ABG pO2 ABG HCO3 ABG O2 Saturation ABG Base Excess POC ABG pCO2 ABG Hemoglobin ABG Oxyhemoglobin ABG Sodium ABG Chloride ABG Glucose Oxyhemoglobin Sodium Potassium Chloride Carbon Dioxide 34 H BUN Creatinine 0.6 L Glucose 152 H POC Glucose 157 H 156 H Lactic Acid Calcium Phosphorus Magnesium AST ALT Lactate Dehydrogenase Total Bilirubin Direct Bilirubin CK-MB (CK-2) C-Reactive Protein NT-Pro-B Natriuret Pep Total Protein Albumin Arterial Blood Glucose Urine WBC (Auto) Urine Creatinine 01/29/20 01/30/20 01/30/20 19:06 00:29 05:39 WBC RBC Hgb Hct MCHC RDW MCV MCH Lymph % (Auto) [place] % (Auto) [place] # Eos # Lymph # (Auto) [place] # (Auto) Eos # (Auto) Seg Neutrophils % Seg Neuts % (Manual) Baso # (Auto) Lymphocytes % (Manual) Monocytes % (Manual) Eosinophils % (Manual) Basophils % (Manual) Seg Neutrophils # Seg Neutrophils # Man Lymphocytes # (Manual) Monocytes # (Manual) Eosinophils # (Manual) Nucleated RBC % Basophils # (Manual) PT INR APTT Heparin Anti-Xa Level ABG pH POC ABG pO2 ABG pO2 ABG HCO3 ABG O2 Saturation ABG Base Excess POC ABG pCO2 ABG Hemoglobin ABG Oxyhemoglobin ABG Sodium ABG Chloride ABG Glucose Oxyhemoglobin Sodium Potassium Chloride Carbon Dioxide BUN Creatinine Glucose POC Glucose 152 H 132 H 159 H Lactic Acid Calcium Phosphorus Magnesium AST ALT Lactate Dehydrogenase Total Bilirubin Direct Bilirubin CK-MB (CK-2) C-Reactive Protein NT-Pro-B Natriuret Pep Total Protein Albumin Arterial Blood Glucose Urine WBC (Auto) Urine Creatinine 01/30/20 01/30/20 01/30/20 12:27 17:42 23:28 WBC RBC Hgb Hct MCHC RDW MCV MCH Lymph % (Auto) [place] % (Auto) [place] # Eos # Lymph # (Auto) [place] # (Auto) Eos # (Auto) Seg Neutrophils % Seg Neuts % (Manual) Baso # (Auto) Lymphocytes % (Manual) Monocytes % (Manual) Eosinophils % (Manual) Basophils % (Manual) Seg Neutrophils # Seg Neutrophils # Man Lymphocytes # (Manual) Monocytes # (Manual) Eosinophils # (Manual) Nucleated RBC % Basophils # (Manual) PT INR APTT Heparin Anti-Xa Level ABG pH POC ABG pO2 ABG pO2 ABG HCO3 ABG O2 Saturation ABG Base Excess POC ABG pCO2 ABG Hemoglobin ABG Oxyhemoglobin ABG Sodium ABG Chloride ABG Glucose Oxyhemoglobin Sodium Potassium Chloride Carbon Dioxide BUN Creatinine Glucose POC Glucose 151 H 144 H 164 H Lactic Acid Calcium Phosphorus Magnesium AST ALT Lactate Dehydrogenase Total Bilirubin Direct Bilirubin CK-MB (CK-2) C-Reactive Protein NT-Pro-B Natriuret Pep Total Protein Albumin Arterial Blood Glucose Urine WBC (Auto) Urine Creatinine 01/31/20 01/31/20 01/31/20 05:51 11:51 18:06 WBC RBC Hgb Hct MCHC RDW MCV MCH Lymph % (Auto) [place] % (Auto) [place] # Eos # Lymph # (Auto) [place] # (Auto) Eos # (Auto) Seg Neutrophils % Seg Neuts % (Manual) Baso # (Auto) Lymphocytes % (Manual) Monocytes % (Manual) Eosinophils % (Manual) Basophils % (Manual) Seg Neutrophils # Seg Neutrophils # Man Lymphocytes # (Manual) Monocytes # (Manual) Eosinophils # (Manual) Nucleated RBC % Basophils # (Manual) PT INR APTT Heparin Anti-Xa Level ABG pH POC ABG pO2 ABG pO2 ABG HCO3 ABG O2 Saturation ABG Base Excess POC ABG pCO2 ABG Hemoglobin ABG Oxyhemoglobin ABG Sodium ABG Chloride ABG Glucose Oxyhemoglobin Sodium Potassium Chloride Carbon Dioxide BUN Creatinine Glucose POC Glucose 131 H 167 H 210 H Lactic Acid Calcium Phosphorus Magnesium AST ALT Lactate Dehydrogenase Total Bilirubin Direct Bilirubin CK-MB (CK-2) C-Reactive Protein NT-Pro-B Natriuret Pep Total Protein Albumin Arterial Blood Glucose Urine WBC (Auto) Urine Creatinine 01/31/20 01/31/20 02/01/20 19:24 Unknown 00:34 WBC RBC Hgb Hct MCHC RDW MCV MCH Lymph % (Auto) [place] % (Auto) [place] # Eos # Lymph # (Auto) [place] # (Auto) Eos # (Auto) Seg Neutrophils % Seg Neuts % (Manual) Baso # (Auto) Lymphocytes % (Manual) Monocytes % (Manual) Eosinophils % (Manual) Basophils % (Manual) Seg Neutrophils # Seg Neutrophils # Man Lymphocytes # (Manual) Monocytes # (Manual) Eosinophils # (Manual) Nucleated RBC % Basophils # (Manual) PT INR APTT Heparin Anti-Xa Level ABG pH POC ABG pO2 ABG pO2 ABG HCO3 ABG O2 Saturation ABG Base Excess POC ABG pCO2 ABG Hemoglobin ABG Oxyhemoglobin ABG Sodium ABG Chloride ABG Glucose Oxyhemoglobin Sodium Potassium Chloride 95.3 L Carbon Dioxide 33 H BUN 36 H Creatinine Glucose 187 H POC Glucose 116 H Lactic Acid Calcium Phosphorus Magnesium AST ALT Lactate Dehydrogenase Total Bilirubin Direct Bilirubin CK-MB (CK-2) C-Reactive Protein NT-Pro-B Natriuret Pep Total Protein Albumin Arterial Blood Glucose Urine WBC (Auto) Urine Creatinine 57.4 H 02/01/20 02/01/20 02/01/20 05:24 10:40 12:29 WBC RBC Hgb Hct MCHC RDW MCV MCH Lymph % (Auto) [place] % (Auto) [place] # Eos # Lymph # (Auto) [place] # (Auto) Eos # (Auto) Seg Neutrophils % Seg Neuts % (Manual) Baso # (Auto) Lymphocytes % (Manual) Monocytes % (Manual) Eosinophils % (Manual) Basophils % (Manual) Seg Neutrophils # Seg Neutrophils # Man Lymphocytes # (Manual) Monocytes # (Manual) Eosinophils # (Manual) Nucleated RBC % Basophils # (Manual) PT INR APTT Heparin Anti-Xa Level ABG pH POC ABG pO2 ABG pO2 ABG HCO3 ABG O2 Saturation ABG Base Excess POC ABG pCO2 ABG Hemoglobin ABG Oxyhemoglobin ABG Sodium ABG Chloride ABG Glucose Oxyhemoglobin Sodium Potassium Chloride Carbon Dioxide BUN Creatinine Glucose POC Glucose 142 H 165 H 151 H Lactic Acid Calcium Phosphorus Magnesium AST ALT Lactate Dehydrogenase Total Bilirubin Direct Bilirubin CK-MB (CK-2) C-Reactive Protein NT-Pro-B Natriuret Pep Total Protein Albumin Arterial Blood Glucose Urine WBC (Auto) Urine Creatinine 02/01/20 02/01/20 02/02/20 17:16 23:23 06:36 WBC RBC Hgb Hct MCHC RDW MCV MCH Lymph % (Auto) [place] % (Auto) [place] # Eos # Lymph # (Auto) [place] # (Auto) Eos # (Auto) Seg Neutrophils % Seg Neuts % (Manual) Baso # (Auto) Lymphocytes % (Manual) Monocytes % (Manual) Eosinophils % (Manual) Basophils % (Manual) Seg Neutrophils # Seg Neutrophils # Man Lymphocytes # (Manual) Monocytes # (Manual) Eosinophils # (Manual) Nucleated RBC % Basophils # (Manual) PT INR APTT Heparin Anti-Xa Level ABG pH POC ABG pO2 ABG pO2 ABG HCO3 ABG O2 Saturation ABG Base Excess POC ABG pCO2 ABG Hemoglobin ABG Oxyhemoglobin ABG Sodium ABG Chloride ABG Glucose Oxyhemoglobin Sodium Potassium Chloride Carbon Dioxide BUN Creatinine Glucose POC Glucose 137 H 145 H 181 H Lactic Acid Calcium Phosphorus Magnesium AST ALT Lactate Dehydrogenase Total Bilirubin Direct Bilirubin CK-MB (CK-2) C-Reactive Protein NT-Pro-B Natriuret Pep Total Protein Albumin Arterial Blood Glucose Urine WBC (Auto) Urine Creatinine 02/02/20 02/02/20 02/02/20 10:01 12:05 17:54 WBC RBC Hgb Hct MCHC RDW MCV MCH Lymph % (Auto) [place] % (Auto) [place] # Eos # Lymph # (Auto) [place] # (Auto) Eos # (Auto) Seg Neutrophils % Seg Neuts % (Manual) Baso # (Auto) Lymphocytes % (Manual) Monocytes % (Manual) Eosinophils % (Manual) Basophils % (Manual) Seg Neutrophils # Seg Neutrophils # Man Lymphocytes # (Manual) Monocytes # (Manual) Eosinophils # (Manual) Nucleated RBC % Basophils # (Manual) PT INR APTT Heparin Anti-Xa Level ABG pH POC ABG pO2 ABG pO2 ABG HCO3 ABG O2 Saturation ABG Base Excess POC ABG pCO2 ABG Hemoglobin ABG Oxyhemoglobin ABG Sodium ABG Chloride ABG Glucose Oxyhemoglobin Sodium Potassium Chloride 95.3 L Carbon Dioxide BUN 44 H Creatinine Glucose 234 H POC Glucose 184 H 127 H Lactic Acid Calcium Phosphorus Magnesium AST 363 H ALT 457 H Lactate Dehydrogenase Total Bilirubin Direct Bilirubin CK-MB (CK-2) C-Reactive Protein NT-Pro-B Natriuret Pep Total Protein Albumin 3.0 L Arterial Blood Glucose Urine WBC (Auto) Urine Creatinine 02/02/20 02/03/20 02/03/20 23:47 05:32 07:04 WBC 13.0 H RBC Hgb 9.5 L Hct 30.8 L MCHC 31 L RDW 19.6 H MCV 81 L MCH 25 L Lymph % (Auto) [place] % (Auto) 9.4 H [place] # Eos # Lymph # (Auto) [place] # (Auto) 1.2 H Eos # (Auto) Seg Neutrophils % 72.3 H Seg Neuts % (Manual) Baso # (Auto) Lymphocytes % (Manual) Monocytes % (Manual) Eosinophils % (Manual) Basophils % (Manual) Seg Neutrophils # 9.4 H Seg Neutrophils # Man Lymphocytes # (Manual) Monocytes # (Manual) Eosinophils # (Manual) Nucleated RBC % Basophils # (Manual) PT INR APTT Heparin Anti-Xa Level ABG pH POC ABG pO2 ABG pO2 ABG HCO3 ABG O2 Saturation ABG Base Excess POC ABG pCO2 ABG Hemoglobin ABG Oxyhemoglobin ABG Sodium ABG Chloride ABG Glucose Oxyhemoglobin Sodium Potassium Chloride Carbon Dioxide BUN Creatinine Glucose POC Glucose 124 H 129 H Lactic Acid Calcium Phosphorus Magnesium AST ALT Lactate Dehydrogenase Total Bilirubin Direct Bilirubin CK-MB (CK-2) C-Reactive Protein NT-Pro-B Natriuret Pep Total Protein Albumin Arterial Blood Glucose Urine WBC (Auto) Urine Creatinine 02/03/20 02/03/20 02/03/20 07:04 11:32 12:49 WBC RBC Hgb Hct MCHC RDW MCV MCH Lymph % (Auto) [place] % (Auto) [place] # Eos # Lymph # (Auto) [place] # (Auto) Eos # (Auto) Seg Neutrophils % Seg Neuts % (Manual) Baso # (Auto) Lymphocytes % (Manual) Monocytes % (Manual) Eosinophils % (Manual) Basophils % (Manual) Seg Neutrophils # Seg Neutrophils # Man Lymphocytes # (Manual) Monocytes # (Manual) Eosinophils # (Manual) Nucleated RBC % Basophils # (Manual) PT INR APTT Heparin Anti-Xa Level ABG pH POC ABG pO2 ABG pO2 ABG HCO3 ABG O2 Saturation ABG Base Excess POC ABG pCO2 ABG Hemoglobin ABG Oxyhemoglobin ABG Sodium ABG Chloride ABG Glucose Oxyhemoglobin Sodium Potassium Chloride 97.9 L Carbon Dioxide 33 H BUN 39 H Creatinine Glucose 119 H POC Glucose 138 H Lactic Acid Calcium Phosphorus Magnesium 2.60 H AST ALT Lactate Dehydrogenase Total Bilirubin Direct Bilirubin CK-MB (CK-2) C-Reactive Protein NT-Pro-B Natriuret Pep Total Protein Albumin Arterial Blood Glucose Urine WBC (Auto) Urine Creatinine 02/03/20 02/04/20 02/04/20 18:28 16:24 16:24 WBC RBC 3.38 L Hgb 8.6 L Hct 26.9 L MCHC RDW 19.5 H MCV 80 L MCH 26 L Lymph % (Auto) [place] % (Auto) [place] # Eos # Lymph # (Auto) [place] # (Auto) Eos # (Auto) Seg Neutrophils % Seg Neuts % (Manual) Baso # (Auto) Lymphocytes % (Manual) Monocytes % (Manual) Eosinophils % (Manual) Basophils % (Manual) Seg Neutrophils # Seg Neutrophils # Man Lymphocytes # (Manual) Monocytes # (Manual) Eosinophils # (Manual) Nucleated RBC % Basophils # (Manual) PT INR APTT Heparin Anti-Xa Level ABG pH POC ABG pO2 ABG pO2 ABG HCO3 ABG O2 Saturation ABG Base Excess POC ABG pCO2 ABG Hemoglobin ABG Oxyhemoglobin ABG Sodium ABG Chloride ABG Glucose Oxyhemoglobin Sodium Potassium 3.4 L Chloride Carbon Dioxide 31 H BUN 37 H Creatinine Glucose 70 L POC Glucose 118 H Lactic Acid Calcium Phosphorus Magnesium AST 169 H ALT 394 H Lactate Dehydrogenase Total Bilirubin 1.50 H Direct Bilirubin CK-MB (CK-2) C-Reactive Protein NT-Pro-B Natriuret Pep Total Protein Albumin 2.9 L Arterial Blood Glucose Urine WBC (Auto) Urine Creatinine 02/05/20 02/05/20 02/05/20 00:41 06:37 17:14 WBC RBC Hgb Hct MCHC RDW MCV MCH Lymph % (Auto) [place] % (Auto) [place] # Eos # Lymph # (Auto) [place] # (Auto) Eos # (Auto) Seg Neutrophils % Seg Neuts % (Manual) Baso # (Auto) Lymphocytes % (Manual) Monocytes % (Manual) Eosinophils % (Manual) Basophils % (Manual) Seg Neutrophils # Seg Neutrophils # Man Lymphocytes # (Manual) Monocytes # (Manual) Eosinophils # (Manual) Nucleated RBC % Basophils # (Manual) PT INR APTT Heparin Anti-Xa Level ABG pH POC ABG pO2 ABG pO2 ABG HCO3 ABG O2 Saturation ABG Base Excess POC ABG pCO2 ABG Hemoglobin ABG Oxyhemoglobin ABG Sodium ABG Chloride ABG Glucose Oxyhemoglobin Sodium Potassium 3.1 L Chloride Carbon Dioxide 35 H BUN 32 H Creatinine 0.7 L Glucose POC Glucose 69 L 127 H Lactic Acid Calcium Phosphorus Magnesium AST 134 H ALT 352 H Lactate Dehydrogenase Total Bilirubin 1.60 H Direct Bilirubin CK-MB (CK-2) C-Reactive Protein NT-Pro-B Natriuret Pep Total Protein Albumin 2.9 L Arterial Blood Glucose Urine WBC (Auto) Urine Creatinine 02/05/20 02/06/20 02/06/20 23:43 05:32 08:01 WBC RBC Hgb Hct MCHC RDW MCV MCH Lymph % (Auto) [place] % (Auto) [place] # Eos # Lymph # (Auto) [place] # (Auto) Eos # (Auto) Seg Neutrophils % Seg Neuts % (Manual) Baso # (Auto) Lymphocytes % (Manual) Monocytes % (Manual) Eosinophils % (Manual) Basophils % (Manual) Seg Neutrophils # Seg Neutrophils # Man Lymphocytes # (Manual) Monocytes # (Manual) Eosinophils # (Manual) Nucleated RBC % Basophils # (Manual) PT INR APTT Heparin Anti-Xa Level ABG pH POC ABG pO2 ABG pO2 ABG HCO3 ABG O2 Saturation ABG Base Excess POC ABG pCO2 ABG Hemoglobin ABG Oxyhemoglobin ABG Sodium ABG Chloride ABG Glucose Oxyhemoglobin Sodium Potassium Chloride Carbon Dioxide BUN 40 H Creatinine Glucose 132 H POC Glucose 129 H 131 H Lactic Acid Calcium Phosphorus Magnesium AST ALT Lactate Dehydrogenase Total Bilirubin Direct Bilirubin CK-MB (CK-2) C-Reactive Protein NT-Pro-B Natriuret Pep Total Protein Albumin Arterial Blood Glucose Urine WBC (Auto) Urine Creatinine 02/06/20 02/06/20 02/06/20 11:51 16:28 17:32 WBC RBC Hgb Hct MCHC RDW MCV MCH Lymph % (Auto) [place] % (Auto) [place] # Eos # Lymph # (Auto) [place] # (Auto) Eos # (Auto) Seg Neutrophils % Seg Neuts % (Manual) Baso # (Auto) Lymphocytes % (Manual) Monocytes % (Manual) Eosinophils % (Manual) Basophils % (Manual) Seg Neutrophils # Seg Neutrophils # Man Lymphocytes # (Manual) Monocytes # (Manual) Eosinophils # (Manual) Nucleated RBC % Basophils # (Manual) PT INR APTT Heparin Anti-Xa Level ABG pH POC ABG pO2 ABG pO2 ABG HCO3 ABG O2 Saturation ABG Base Excess POC ABG pCO2 ABG Hemoglobin ABG Oxyhemoglobin ABG Sodium ABG Chloride ABG Glucose Oxyhemoglobin Sodium Potassium Chloride Carbon Dioxide BUN Creatinine Glucose POC Glucose 167 H 129 H Lactic Acid Calcium Phosphorus Magnesium AST 824 H ALT 948 H Lactate Dehydrogenase Total Bilirubin 1.70 H Direct Bilirubin 1.2 H CK-MB (CK-2) C-Reactive Protein NT-Pro-B Natriuret Pep Total Protein Albumin 2.9 L Arterial Blood Glucose Urine WBC (Auto) Urine Creatinine 02/07/20 02/07/20 02/07/20 00:11 04:57 04:57 WBC RBC Hgb 9.2 L Hct 29.7 L MCHC 31 L RDW 20.2 H MCV 80 L MCH 25 L Lymph % (Auto) [place] % (Auto) [place] # Eos # Lymph # (Auto) [place] # (Auto) Eos # (Auto) Seg Neutrophils % Seg Neuts % (Manual) Baso # (Auto) Lymphocytes % (Manual) Monocytes % (Manual) Eosinophils % (Manual) Basophils % (Manual) Seg Neutrophils # Seg Neutrophils # Man Lymphocytes # (Manual) Monocytes # (Manual) Eosinophils # (Manual) Nucleated RBC % Basophils # (Manual) PT INR APTT Heparin Anti-Xa Level ABG pH POC ABG pO2 ABG pO2 ABG HCO3 ABG O2 Saturation ABG Base Excess POC ABG pCO2 ABG Hemoglobin ABG Oxyhemoglobin ABG Sodium ABG Chloride ABG Glucose Oxyhemoglobin Sodium Potassium 3.4 L D Chloride Carbon Dioxide 32 H BUN 39 H Creatinine Glucose 106 H POC Glucose 121 H Lactic Acid Calcium Phosphorus Magnesium AST ALT Lactate Dehydrogenase Total Bilirubin Direct Bilirubin CK-MB (CK-2) C-Reactive Protein NT-Pro-B Natriuret Pep Total Protein Albumin Arterial Blood Glucose Urine WBC (Auto) Urine Creatinine 02/07/20 02/07/20 02/07/20 15:03 15:03 17:11 WBC RBC Hgb Hct MCHC RDW MCV MCH Lymph % (Auto) [place] % (Auto) [place] # Eos # Lymph # (Auto) [place] # (Auto) Eos # (Auto) Seg Neutrophils % Seg Neuts % (Manual) Baso # (Auto) Lymphocytes % (Manual) Monocytes % (Manual) Eosinophils % (Manual) Basophils % (Manual) Seg Neutrophils # Seg Neutrophils # Man Lymphocytes # (Manual) Monocytes # (Manual) Eosinophils # (Manual) Nucleated RBC % Basophils # (Manual) PT 27.0 H INR 2.46 H APTT Heparin Anti-Xa Level ABG pH POC ABG pO2 ABG pO2 ABG HCO3 ABG O2 Saturation ABG Base Excess POC ABG pCO2 ABG Hemoglobin ABG Oxyhemoglobin ABG Sodium ABG Chloride ABG Glucose Oxyhemoglobin Sodium Potassium Chloride Carbon Dioxide BUN Creatinine Glucose POC Glucose 109 H Lactic Acid Calcium Phosphorus Magnesium AST 424 H ALT 796 H Lactate Dehydrogenase Total Bilirubin 1.60 H Direct Bilirubin 1.2 H CK-MB (CK-2) C-Reactive Protein NT-Pro-B Natriuret Pep Total Protein Albumin 2.9 L Arterial Blood Glucose Urine WBC (Auto) Urine Creatinine 02/08/20 02/08/20 02/08/20 12:14 17:44 19:00 WBC RBC Hgb Hct MCHC RDW MCV MCH Lymph % (Auto) [place] % (Auto) [place] # Eos # Lymph # (Auto) [place] # (Auto) Eos # (Auto) Seg Neutrophils % Seg Neuts % (Manual) Baso # (Auto) Lymphocytes % (Manual) Monocytes % (Manual) Eosinophils % (Manual) Basophils % (Manual) Seg Neutrophils # Seg Neutrophils # Man Lymphocytes # (Manual) Monocytes # (Manual) Eosinophils # (Manual) Nucleated RBC % Basophils # (Manual) PT INR APTT Heparin Anti-Xa Level ABG pH POC ABG pO2 ABG pO2 ABG HCO3 ABG O2 Saturation ABG Base Excess POC ABG pCO2 ABG Hemoglobin ABG Oxyhemoglobin ABG Sodium ABG Chloride ABG Glucose Oxyhemoglobin Sodium Potassium Chloride Carbon Dioxide BUN Creatinine Glucose POC Glucose 111 H 107 H Lactic Acid Calcium Phosphorus Magnesium AST 309 H ALT 650 H Lactate Dehydrogenase Total Bilirubin 1.30 H Direct Bilirubin 0.9 H CK-MB (CK-2) C-Reactive Protein NT-Pro-B Natriuret Pep Total Protein 6.2 L Albumin 2.7 L Arterial Blood Glucose Urine WBC (Auto) Urine Creatinine 02/09/20 02/09/20 02/09/20 05:41 12:28 18:07 WBC RBC Hgb Hct MCHC RDW MCV MCH Lymph % (Auto) [place] % (Auto) [place] # Eos # Lymph # (Auto) [place] # (Auto) Eos # (Auto) Seg Neutrophils % Seg Neuts % (Manual) Baso # (Auto) Lymphocytes % (Manual) Monocytes % (Manual) Eosinophils % (Manual) Basophils % (Manual) Seg Neutrophils # Seg Neutrophils # Man Lymphocytes # (Manual) Monocytes # (Manual) Eosinophils # (Manual) Nucleated RBC % Basophils # (Manual) PT INR APTT Heparin Anti-Xa Level ABG pH POC ABG pO2 ABG pO2 ABG HCO3 ABG O2 Saturation ABG Base Excess POC ABG pCO2 ABG Hemoglobin ABG Oxyhemoglobin ABG Sodium ABG Chloride ABG Glucose Oxyhemoglobin Sodium Potassium Chloride Carbon Dioxide BUN Creatinine Glucose POC Glucose 113 H 140 H 143 H Lactic Acid Calcium Phosphorus Magnesium AST ALT Lactate Dehydrogenase Total Bilirubin Direct Bilirubin CK-MB (CK-2) C-Reactive Protein NT-Pro-B Natriuret Pep Total Protein Albumin Arterial Blood Glucose Urine WBC (Auto) Urine Creatinine 02/09/20 02/09/20 02/10/20 21:40 23:45 06:00 WBC RBC Hgb Hct MCHC RDW MCV MCH Lymph % (Auto) [place] % (Auto) [place] # Eos # Lymph # (Auto) [place] # (Auto) Eos # (Auto) Seg Neutrophils % Seg Neuts % (Manual) Baso # (Auto) Lymphocytes % (Manual) Monocytes % (Manual) Eosinophils % (Manual) Basophils % (Manual) Seg Neutrophils # Seg Neutrophils # Man Lymphocytes # (Manual) Monocytes # (Manual) Eosinophils # (Manual) Nucleated RBC % Basophils # (Manual) PT INR APTT Heparin Anti-Xa Level ABG pH POC ABG pO2 ABG pO2 59.8 L ABG HCO3 33.3 H ABG O2 Saturation 88.9 L ABG Base Excess 7.4 H POC ABG pCO2 ABG Hemoglobin 10.4 L ABG Oxyhemoglobin ABG Sodium ABG Chloride ABG Glucose Oxyhemoglobin 86.3 L Sodium Potassium Chloride Carbon Dioxide BUN Creatinine Glucose POC Glucose 127 H 114 H Lactic Acid Calcium Phosphorus Magnesium AST ALT Lactate Dehydrogenase Total Bilirubin Direct Bilirubin CK-MB (CK-2) C-Reactive Protein NT-Pro-B Natriuret Pep Total Protein Albumin Arterial Blood Glucose Urine WBC (Auto) Urine Creatinine 02/10/20 02/10/20 02/10/20 07:40 07:40 13:38 WBC 11.5 H RBC Hgb 10.6 L Hct 34.7 L MCHC 31 L RDW 19.8 H MCV 79 L MCH 24 L Lymph % (Auto) [place] % (Auto) 9.2 H [place] # Eos # Lymph # (Auto) [place] # (Auto) 1.1 H Eos # (Auto) Seg Neutrophils % Seg Neuts % (Manual) Baso # (Auto) Lymphocytes % (Manual) Monocytes % (Manual) Eosinophils % (Manual) Basophils % (Manual) Seg Neutrophils # Seg Neutrophils # Man Lymphocytes # (Manual) Monocytes # (Manual) Eosinophils # (Manual) Nucleated RBC % Basophils # (Manual) PT INR APTT Heparin Anti-Xa Level ABG pH POC ABG pO2 ABG pO2 ABG HCO3 ABG O2 Saturation ABG Base Excess POC ABG pCO2 ABG Hemoglobin ABG Oxyhemoglobin ABG Sodium ABG Chloride ABG Glucose Oxyhemoglobin Sodium 151 H Potassium Chloride 107.2 H Carbon Dioxide 36 H BUN 25 H Creatinine 0.7 L Glucose 114 H POC Glucose 116 H Lactic Acid Calcium Phosphorus Magnesium 2.40 H AST ALT Lactate Dehydrogenase Total Bilirubin Direct Bilirubin CK-MB (CK-2) C-Reactive Protein NT-Pro-B Natriuret Pep Total Protein Albumin Arterial Blood Glucose Urine WBC (Auto) Urine Creatinine 02/10/20 02/11/20 02/11/20 17:44 05:47 12:21 WBC RBC Hgb Hct MCHC RDW MCV MCH Lymph % (Auto) [place] % (Auto) [place] # Eos # Lymph # (Auto) [place] # (Auto) Eos # (Auto) Seg Neutrophils % Seg Neuts % (Manual) Baso # (Auto) Lymphocytes % (Manual) Monocytes % (Manual) Eosinophils % (Manual) Basophils % (Manual) Seg Neutrophils # Seg Neutrophils # Man Lymphocytes # (Manual) Monocytes # (Manual) Eosinophils # (Manual) Nucleated RBC % Basophils # (Manual) PT INR APTT Heparin Anti-Xa Level ABG pH POC ABG pO2 ABG pO2 ABG HCO3 ABG O2 Saturation ABG Base Excess POC ABG pCO2 ABG Hemoglobin ABG Oxyhemoglobin ABG Sodium ABG Chloride ABG Glucose Oxyhemoglobin Sodium Potassium Chloride Carbon Dioxide BUN Creatinine Glucose POC Glucose 139 H 173 H 143 H Lactic Acid Calcium Phosphorus Magnesium AST ALT Lactate Dehydrogenase Total Bilirubin Direct Bilirubin CK-MB (CK-2) C-Reactive Protein NT-Pro-B Natriuret Pep Total Protein Albumin Arterial Blood Glucose Urine WBC (Auto) Urine Creatinine 02/11/20 02/11/20 02/12/20 13:43 14:11 00:15 WBC RBC Hgb Hct MCHC RDW MCV MCH Lymph % (Auto) [place] % (Auto) [place] # Eos # Lymph # (Auto) [place] # (Auto) Eos # (Auto) Seg Neutrophils % Seg Neuts % (Manual) Baso # (Auto) Lymphocytes % (Manual) Monocytes % (Manual) Eosinophils % (Manual) Basophils % (Manual) Seg Neutrophils # Seg Neutrophils # Man Lymphocytes # (Manual) Monocytes # (Manual) Eosinophils # (Manual) Nucleated RBC % Basophils # (Manual) PT INR APTT Heparin Anti-Xa Level ABG pH 7.502 H POC ABG pO2 77.7 L ABG pO2 ABG HCO3 ABG O2 Saturation ABG Base Excess POC ABG pCO2 ABG Hemoglobin 11.1 L ABG Oxyhemoglobin ABG Sodium ABG Chloride 108.0 H ABG Glucose 151 H Oxyhemoglobin Sodium Potassium Chloride Carbon Dioxide BUN Creatinine Glucose POC Glucose 130 H 125 H Lactic Acid Calcium Phosphorus Magnesium AST ALT Lactate Dehydrogenase Total Bilirubin Direct Bilirubin CK-MB (CK-2) C-Reactive Protein NT-Pro-B Natriuret Pep Total Protein Albumin Arterial Blood Glucose 151 H Urine WBC (Auto) Urine Creatinine 02/12/20 02/12/20 02/12/20 04:56 04:56 17:42 WBC RBC Hgb 9.9 L Hct 31.8 L MCHC 31 L RDW 19.4 H MCV 79 L MCH 25 L Lymph % (Auto) [place] % (Auto) 10.3 H [place] # Eos # Lymph # (Auto) [place] # (Auto) 1.0 H Eos # (Auto) Seg Neutrophils % Seg Neuts % (Manual) Baso # (Auto) Lymphocytes % (Manual) Monocytes % (Manual) Eosinophils % (Manual) Basophils % (Manual) Seg Neutrophils # Seg Neutrophils # Man Lymphocytes # (Manual) Monocytes # (Manual) Eosinophils # (Manual) Nucleated RBC % Basophils # (Manual) PT INR APTT Heparin Anti-Xa Level ABG pH POC ABG pO2 ABG pO2 ABG HCO3 ABG O2 Saturation ABG Base Excess POC ABG pCO2 ABG Hemoglobin ABG Oxyhemoglobin ABG Sodium ABG Chloride ABG Glucose Oxyhemoglobin Sodium 149 H Potassium Chloride 108.6 H Carbon Dioxide BUN 28 H Creatinine 0.7 L Glucose 108 H POC Glucose 113 H Lactic Acid Calcium Phosphorus Magnesium AST ALT Lactate Dehydrogenase Total Bilirubin Direct Bilirubin CK-MB (CK-2) C-Reactive Protein NT-Pro-B Natriuret Pep Total Protein Albumin Arterial Blood Glucose Urine WBC (Auto) Urine Creatinine 02/13/20 02/13/20 02/13/20 00:39 05:36 12:25 WBC RBC Hgb Hct MCHC RDW MCV MCH Lymph % (Auto) [place] % (Auto) [place] # Eos # Lymph # (Auto) [place] # (Auto) Eos # (Auto) Seg Neutrophils % Seg Neuts % (Manual) Baso # (Auto) Lymphocytes % (Manual) Monocytes % (Manual) Eosinophils % (Manual) Basophils % (Manual) Seg Neutrophils # Seg Neutrophils # Man Lymphocytes # (Manual) Monocytes # (Manual) Eosinophils # (Manual) Nucleated RBC % Basophils # (Manual) PT INR APTT Heparin Anti-Xa Level ABG pH POC ABG pO2 ABG pO2 ABG HCO3 ABG O2 Saturation ABG Base Excess POC ABG pCO2 ABG Hemoglobin ABG Oxyhemoglobin ABG Sodium ABG Chloride ABG Glucose Oxyhemoglobin Sodium Potassium Chloride Carbon Dioxide BUN Creatinine Glucose POC Glucose 129 H 126 H 129 H Lactic Acid Calcium Phosphorus Magnesium AST ALT Lactate Dehydrogenase Total Bilirubin Direct Bilirubin CK-MB (CK-2) C-Reactive Protein NT-Pro-B Natriuret Pep Total Protein Albumin Arterial Blood Glucose Urine WBC (Auto) Urine Creatinine 02/13/20 02/14/20 02/14/20 17:59 00:15 05:41 WBC RBC Hgb Hct MCHC RDW MCV MCH Lymph % (Auto) [place] % (Auto) [place] # Eos # Lymph # (Auto) [place] # (Auto) Eos # (Auto) Seg Neutrophils % Seg Neuts % (Manual) Baso # (Auto) Lymphocytes % (Manual) Monocytes % (Manual) Eosinophils % (Manual) Basophils % (Manual) Seg Neutrophils # Seg Neutrophils # Man Lymphocytes # (Manual) Monocytes # (Manual) Eosinophils # (Manual) Nucleated RBC % Basophils # (Manual) PT INR APTT Heparin Anti-Xa Level ABG pH POC ABG pO2 ABG pO2 ABG HCO3 ABG O2 Saturation ABG Base Excess POC ABG pCO2 ABG Hemoglobin ABG Oxyhemoglobin ABG Sodium ABG Chloride ABG Glucose Oxyhemoglobin Sodium Potassium Chloride Carbon Dioxide BUN Creatinine Glucose POC Glucose 153 H 130 H 130 H Lactic Acid Calcium Phosphorus Magnesium AST ALT Lactate Dehydrogenase Total Bilirubin Direct Bilirubin CK-MB (CK-2) C-Reactive Protein NT-Pro-B Natriuret Pep Total Protein Albumin Arterial Blood Glucose Urine WBC (Auto) Urine Creatinine 02/14/20 02/15/20 02/15/20 11:32 00:12 05:27 WBC RBC Hgb Hct MCHC RDW MCV MCH Lymph % (Auto) [place] % (Auto) [place] # Eos # Lymph # (Auto) [place] # (Auto) Eos # (Auto) Seg Neutrophils % Seg Neuts % (Manual) Baso # (Auto) Lymphocytes % (Manual) Monocytes % (Manual) Eosinophils % (Manual) Basophils % (Manual) Seg Neutrophils # Seg Neutrophils # Man Lymphocytes # (Manual) Monocytes # (Manual) Eosinophils # (Manual) Nucleated RBC % Basophils # (Manual) PT INR APTT Heparin Anti-Xa Level ABG pH POC ABG pO2 ABG pO2 ABG HCO3 ABG O2 Saturation ABG Base Excess POC ABG pCO2 ABG Hemoglobin ABG Oxyhemoglobin ABG Sodium ABG Chloride ABG Glucose Oxyhemoglobin Sodium Potassium Chloride Carbon Dioxide BUN Creatinine Glucose POC Glucose 157 H 124 H 111 H Lactic Acid Calcium Phosphorus Magnesium AST ALT Lactate Dehydrogenase Total Bilirubin Direct Bilirubin CK-MB (CK-2) C-Reactive Protein NT-Pro-B Natriuret Pep Total Protein Albumin Arterial Blood Glucose Urine WBC (Auto) Urine Creatinine 02/15/20 02/15/20 02/15/20 06:59 06:59 11:14 WBC RBC Hgb 10.4 L Hct 33.7 L MCHC 31 L RDW 19.4 H MCV 80 L MCH 24 L Lymph % (Auto) [place] % (Auto) [place] # Eos # Lymph # (Auto) [place] # (Auto) Eos # (Auto) Seg Neutrophils % Seg Neuts % (Manual) Baso # (Auto) Lymphocytes % (Manual) Monocytes % (Manual) Eosinophils % (Manual) Basophils % (Manual) 2.0 H Seg Neutrophils # Seg Neutrophils # Man Lymphocytes # (Manual) Monocytes # (Manual) Eosinophils # (Manual) Nucleated RBC % 1.0 H Basophils # (Manual) 0.2 H PT INR APTT Heparin Anti-Xa Level ABG pH POC ABG pO2 ABG pO2 ABG HCO3 ABG O2 Saturation ABG Base Excess POC ABG pCO2 ABG Hemoglobin ABG Oxyhemoglobin ABG Sodium ABG Chloride ABG Glucose Oxyhemoglobin Sodium 149 H Potassium Chloride 108.4 H Carbon Dioxide 31 H BUN 40 H Creatinine 0.7 L Glucose 150 H POC Glucose 128 H Lactic Acid Calcium Phosphorus Magnesium AST ALT Lactate Dehydrogenase Total Bilirubin Direct Bilirubin CK-MB (CK-2) C-Reactive Protein NT-Pro-B Natriuret Pep Total Protein Albumin Arterial Blood Glucose Urine WBC (Auto) Urine Creatinine 02/15/20 02/15/20 02/16/20 17:46 23:50 05:03 WBC RBC Hgb Hct MCHC RDW MCV MCH Lymph % (Auto) [place] % (Auto) [place] # Eos # Lymph # (Auto) [place] # (Auto) Eos # (Auto) Seg Neutrophils % Seg Neuts % (Manual) Baso # (Auto) Lymphocytes % (Manual) Monocytes % (Manual) Eosinophils % (Manual) Basophils % (Manual) Seg Neutrophils # Seg Neutrophils # Man Lymphocytes # (Manual) Monocytes # (Manual) Eosinophils # (Manual) Nucleated RBC % Basophils # (Manual) PT INR APTT Heparin Anti-Xa Level ABG pH POC ABG pO2 ABG pO2 ABG HCO3 ABG O2 Saturation ABG Base Excess POC ABG pCO2 ABG Hemoglobin ABG Oxyhemoglobin ABG Sodium ABG Chloride ABG Glucose Oxyhemoglobin Sodium Potassium Chloride Carbon Dioxide BUN Creatinine Glucose POC Glucose 154 H 135 H 148 H Lactic Acid Calcium Phosphorus Magnesium AST ALT Lactate Dehydrogenase Total Bilirubin Direct Bilirubin CK-MB (CK-2) C-Reactive Protein NT-Pro-B Natriuret Pep Total Protein Albumin Arterial Blood Glucose Urine WBC (Auto) Urine Creatinine 02/16/20 02/16/20 02/16/20 07:53 11:28 17:52 WBC RBC Hgb Hct MCHC RDW MCV MCH Lymph % (Auto) [place] % (Auto) [place] # Eos # Lymph # (Auto) [place] # (Auto) Eos # (Auto) Seg Neutrophils % Seg Neuts % (Manual) Baso # (Auto) Lymphocytes % (Manual) Monocytes % (Manual) Eosinophils % (Manual) Basophils % (Manual) Seg Neutrophils # Seg Neutrophils # Man Lymphocytes # (Manual) Monocytes # (Manual) Eosinophils # (Manual) Nucleated RBC % Basophils # (Manual) PT INR APTT Heparin Anti-Xa Level ABG pH POC ABG pO2 ABG pO2 ABG HCO3 ABG O2 Saturation ABG Base Excess POC ABG pCO2 ABG Hemoglobin ABG Oxyhemoglobin ABG Sodium ABG Chloride ABG Glucose Oxyhemoglobin Sodium Potassium Chloride 107.9 H Carbon Dioxide BUN 38 H Creatinine 0.6 L Glucose 151 H POC Glucose 123 H 152 H Lactic Acid Calcium Phosphorus Magnesium AST ALT Lactate Dehydrogenase Total Bilirubin Direct Bilirubin CK-MB (CK-2) C-Reactive Protein NT-Pro-B Natriuret Pep Total Protein Albumin Arterial Blood Glucose Urine WBC (Auto) Urine Creatinine 02/16/20 02/17/20 02/17/20 23:49 06:24 11:36 WBC RBC Hgb Hct MCHC RDW MCV MCH Lymph % (Auto) [place] % (Auto) Payette # Eos # Lymph # (Auto) [place] # (Auto) Eos # (Auto) Seg Neutrophils % Seg Neuts % (Manual) Baso # (Auto) Lymphocytes % (Manual) Monocytes % (Manual) Eosinophils % (Manual) Basophils % (Manual) Seg Neutrophils # Seg Neutrophils # Man Lymphocytes # (Manual) Monocytes # (Manual) Eosinophils # (Manual) Nucleated RBC % Basophils # (Manual) PT INR APTT Heparin Anti-Xa Level ABG pH POC ABG pO2 ABG pO2 ABG HCO3 ABG O2 Saturation ABG Base Excess POC ABG pCO2 ABG Hemoglobin ABG Oxyhemoglobin ABG Sodium ABG Chloride ABG Glucose Oxyhemoglobin Sodium Potassium Chloride Carbon Dioxide BUN Creatinine Glucose POC Glucose 156 H 193 H 162 H Lactic Acid Calcium Phosphorus Magnesium AST ALT Lactate Dehydrogenase Total Bilirubin Direct Bilirubin CK-MB (CK-2) C-Reactive Protein NT-Pro-B Natriuret Pep Total Protein Albumin Arterial Blood Glucose Urine WBC (Auto) Urine Creatinine 02/17/20 02/17/20 02/18/20 17:55 23:28 05:11 WBC RBC Hgb Hct MCHC RDW MCV MCH Lymph % (Auto) [place] % (Auto) [place] # Eos # Lymph # (Auto) [place] # (Auto) Eos # (Auto) Seg Neutrophils % Seg Neuts % (Manual) Baso # (Auto) Lymphocytes % (Manual) Monocytes % (Manual) Eosinophils % (Manual) Basophils % (Manual) Seg Neutrophils # Seg Neutrophils # Man Lymphocytes # (Manual) Monocytes # (Manual) Eosinophils # (Manual) Nucleated RBC % Basophils # (Manual) PT INR APTT Heparin Anti-Xa Level ABG pH POC ABG pO2 ABG pO2 ABG HCO3 ABG O2 Saturation ABG Base Excess POC ABG pCO2 ABG Hemoglobin ABG Oxyhemoglobin ABG Sodium ABG Chloride ABG Glucose Oxyhemoglobin Sodium Potassium Chloride Carbon Dioxide BUN Creatinine Glucose POC Glucose 165 H 146 H 122 H Lactic Acid Calcium Phosphorus Magnesium AST ALT Lactate Dehydrogenase Total Bilirubin Direct Bilirubin CK-MB (CK-2) C-Reactive Protein NT-Pro-B Natriuret Pep Total Protein Albumin Arterial Blood Glucose Urine WBC (Auto) Urine Creatinine 02/18/20 02/18/20 02/19/20 12:24 17:29 00:01 WBC RBC Hgb Hct MCHC RDW MCV MCH Lymph % (Auto) [place] % (Auto) [place] # Eos # Lymph # (Auto) [place] # (Auto) Eos # (Auto) Seg Neutrophils % Seg Neuts % (Manual) Baso # (Auto) Lymphocytes % (Manual) Monocytes % (Manual) Eosinophils % (Manual) Basophils % (Manual) Seg Neutrophils # Seg Neutrophils # Man Lymphocytes # (Manual) Monocytes # (Manual) Eosinophils # (Manual) Nucleated RBC % Basophils # (Manual) PT INR APTT Heparin Anti-Xa Level ABG pH POC ABG pO2 ABG pO2 ABG HCO3 ABG O2 Saturation ABG Base Excess POC ABG pCO2 ABG Hemoglobin ABG Oxyhemoglobin ABG Sodium ABG Chloride ABG Glucose Oxyhemoglobin Sodium Potassium Chloride Carbon Dioxide BUN Creatinine Glucose POC Glucose 162 H 136 H 145 H Lactic Acid Calcium Phosphorus Magnesium AST ALT Lactate Dehydrogenase Total Bilirubin Direct Bilirubin CK-MB (CK-2) C-Reactive Protein NT-Pro-B Natriuret Pep Total Protein Albumin Arterial Blood Glucose Urine WBC (Auto) Urine Creatinine 02/19/20 02/19/20 02/19/20 05:53 11:44 17:32 WBC RBC Hgb Hct MCHC RDW MCV MCH Lymph % (Auto) [place] % (Auto) [place] # Eos # Lymph # (Auto) [place] # (Auto) Eos # (Auto) Seg Neutrophils % Seg Neuts % (Manual) Baso # (Auto) Lymphocytes % (Manual) Monocytes % (Manual) Eosinophils % (Manual) Basophils % (Manual) Seg Neutrophils # Seg Neutrophils # Man Lymphocytes # (Manual) Monocytes # (Manual) Eosinophils # (Manual) Nucleated RBC % Basophils # (Manual) PT INR APTT Heparin Anti-Xa Level ABG pH POC ABG pO2 ABG pO2 ABG HCO3 ABG O2 Saturation ABG Base Excess POC ABG pCO2 ABG Hemoglobin ABG Oxyhemoglobin ABG Sodium ABG Chloride ABG Glucose Oxyhemoglobin Sodium Potassium Chloride Carbon Dioxide BUN Creatinine Glucose POC Glucose 116 H 120 H 154 H Lactic Acid Calcium Phosphorus Magnesium AST ALT Lactate Dehydrogenase Total Bilirubin Direct Bilirubin CK-MB (CK-2) C-Reactive Protein NT-Pro-B Natriuret Pep Total Protein Albumin Arterial Blood Glucose Urine WBC (Auto) Urine Creatinine 02/19/20 02/20/20 02/20/20 23:43 00:24 00:24 WBC RBC Hgb 9.4 L Hct 30.0 L MCHC 31 L RDW 20.4 H MCV 79 L MCH 25 L Lymph % (Auto) [place] % (Auto) 8.5 H [place] # Eos # Lymph # (Auto) [place] # (Auto) Eos # (Auto) Seg Neutrophils % Seg Neuts % (Manual) Baso # (Auto) Lymphocytes % (Manual) Monocytes % (Manual) Eosinophils % (Manual) Basophils % (Manual) Seg Neutrophils # Seg Neutrophils # Man Lymphocytes # (Manual) Monocytes # (Manual) Eosinophils # (Manual) Nucleated RBC % Basophils # (Manual) PT INR APTT Heparin Anti-Xa Level ABG pH POC ABG pO2 ABG pO2 ABG HCO3 ABG O2 Saturation ABG Base Excess POC ABG pCO2 ABG Hemoglobin ABG Oxyhemoglobin ABG Sodium ABG Chloride ABG Glucose Oxyhemoglobin Sodium 147 H Potassium 3.4 L Chloride Carbon Dioxide 31 H BUN 34 H Creatinine 0.5 L Glucose 135 H POC Glucose 122 H Lactic Acid Calcium Phosphorus Magnesium AST ALT Lactate Dehydrogenase Total Bilirubin Direct Bilirubin CK-MB (CK-2) C-Reactive Protein NT-Pro-B Natriuret Pep Total Protein Albumin Arterial Blood Glucose Urine WBC (Auto) Urine Creatinine 02/20/20 02/20/20 02/20/20 06:07 06:45 12:03 WBC RBC Hgb Hct MCHC RDW MCV MCH Lymph % (Auto) [place] % (Auto) [place] # Eos # Lymph # (Auto) [place] # (Auto) Eos # (Auto) Seg Neutrophils % Seg Neuts % (Manual) Baso # (Auto) Lymphocytes % (Manual) Monocytes % (Manual) Eosinophils % (Manual) Basophils % (Manual) Seg Neutrophils # Seg Neutrophils # Man Lymphocytes # (Manual) Monocytes # (Manual) Eosinophils # (Manual) Nucleated RBC % Basophils # (Manual) PT INR APTT Heparin Anti-Xa Level ABG pH 7.461 H POC ABG pO2 ABG pO2 ABG HCO3 33.3 H ABG O2 Saturation ABG Base Excess 8.4 H POC ABG pCO2 ABG Hemoglobin 10.0 L ABG Oxyhemoglobin ABG Sodium ABG Chloride ABG Glucose Oxyhemoglobin 94.1 L Sodium Potassium Chloride Carbon Dioxide BUN Creatinine Glucose POC Glucose 109 H 128 H Lactic Acid Calcium Phosphorus Magnesium AST ALT Lactate Dehydrogenase Total Bilirubin Direct Bilirubin CK-MB (CK-2) C-Reactive Protein NT-Pro-B Natriuret Pep Total Protein Albumin Arterial Blood Glucose Urine WBC (Auto) Urine Creatinine 02/20/20 02/20/20 02/21/20 18:02 23:55 05:42 WBC RBC Hgb Hct MCHC RDW MCV MCH Lymph % (Auto) [place] % (Auto) [place] # Eos # Lymph # (Auto) [place] # (Auto) Eos # (Auto) Seg Neutrophils % Seg Neuts % (Manual) Baso # (Auto) Lymphocytes % (Manual) Monocytes % (Manual) Eosinophils % (Manual) Basophils % (Manual) Seg Neutrophils # Seg Neutrophils # Man Lymphocytes # (Manual) Monocytes # (Manual) Eosinophils # (Manual) Nucleated RBC % Basophils # (Manual) PT INR APTT Heparin Anti-Xa Level ABG pH POC ABG pO2 ABG pO2 ABG HCO3 ABG O2 Saturation ABG Base Excess POC ABG pCO2 ABG Hemoglobin ABG Oxyhemoglobin ABG Sodium ABG Chloride ABG Glucose Oxyhemoglobin Sodium Potassium Chloride Carbon Dioxide BUN Creatinine Glucose POC Glucose 118 H 125 H 127 H Lactic Acid Calcium Phosphorus Magnesium AST ALT Lactate Dehydrogenase Total Bilirubin Direct Bilirubin CK-MB (CK-2) C-Reactive Protein NT-Pro-B Natriuret Pep Total Protein Albumin Arterial Blood Glucose Urine WBC (Auto) Urine Creatinine 02/21/20 02/21/20 02/21/20 12:10 17:35 23:40 WBC RBC Hgb Hct MCHC RDW MCV MCH Lymph % (Auto) [place] % (Auto) [place] # Eos # Lymph # (Auto) [place] # (Auto) Eos # (Auto) Seg Neutrophils % Seg Neuts % (Manual) Baso # (Auto) Lymphocytes % (Manual) Monocytes % (Manual) Eosinophils % (Manual) Basophils % (Manual) Seg Neutrophils # Seg Neutrophils # Man Lymphocytes # (Manual) Monocytes # (Manual) Eosinophils # (Manual) Nucleated RBC % Basophils # (Manual) PT INR APTT Heparin Anti-Xa Level ABG pH POC ABG pO2 ABG pO2 ABG HCO3 ABG O2 Saturation ABG Base Excess POC ABG pCO2 ABG Hemoglobin ABG Oxyhemoglobin ABG Sodium ABG Chloride ABG Glucose Oxyhemoglobin Sodium Potassium Chloride Carbon Dioxide BUN Creatinine Glucose POC Glucose 128 H 113 H 125 H Lactic Acid Calcium Phosphorus Magnesium AST ALT Lactate Dehydrogenase Total Bilirubin Direct Bilirubin CK-MB (CK-2) C-Reactive Protein NT-Pro-B Natriuret Pep Total Protein Albumin Arterial Blood Glucose Urine WBC (Auto) Urine Creatinine 02/22/20 02/22/20 02/22/20 05:57 08:06 08:06 WBC RBC Hgb 10.8 L Hct 35.2 L MCHC 31 L RDW 21.8 H MCV 80 L MCH 25 L Lymph % (Auto) [place] % (Auto) [place] # Eos # Lymph # (Auto) [place] # (Auto) Eos # (Auto) Seg Neutrophils % 71.5 H Seg Neuts % (Manual) Baso # (Auto) Lymphocytes % (Manual) Monocytes % (Manual) Eosinophils % (Manual) Basophils % (Manual) Seg Neutrophils # Seg Neutrophils # Man Lymphocytes # (Manual) Monocytes # (Manual) Eosinophils # (Manual) Nucleated RBC % Basophils # (Manual) PT INR APTT Heparin Anti-Xa Level ABG pH POC ABG pO2 ABG pO2 ABG HCO3 ABG O2 Saturation ABG Base Excess POC ABG pCO2 ABG Hemoglobin ABG Oxyhemoglobin ABG Sodium ABG Chloride ABG Glucose Oxyhemoglobin Sodium 146 H Potassium Chloride Carbon Dioxide 34 H BUN 21 H Creatinine 0.4 L Glucose 149 H POC Glucose 138 H Lactic Acid Calcium Phosphorus Magnesium AST ALT Lactate Dehydrogenase Total Bilirubin Direct Bilirubin CK-MB (CK-2) C-Reactive Protein NT-Pro-B Natriuret Pep Total Protein Albumin Arterial Blood Glucose Urine WBC (Auto) Urine Creatinine 02/22/20 02/22/20 02/22/20 11:47 17:11 23:25 WBC RBC Hgb Hct MCHC RDW MCV MCH Lymph % (Auto) [place] % (Auto) [place] # Eos # Lymph # (Auto) [place] # (Auto) Eos # (Auto) Seg Neutrophils % Seg Neuts % (Manual) Baso # (Auto) Lymphocytes % (Manual) Monocytes % (Manual) Eosinophils % (Manual) Basophils % (Manual) Seg Neutrophils # Seg Neutrophils # Man Lymphocytes # (Manual) Monocytes # (Manual) Eosinophils # (Manual) Nucleated RBC % Basophils # (Manual) PT INR APTT Heparin Anti-Xa Level ABG pH POC ABG pO2 ABG pO2 ABG HCO3 ABG O2 Saturation ABG Base Excess POC ABG pCO2 ABG Hemoglobin ABG Oxyhemoglobin ABG Sodium ABG Chloride ABG Glucose Oxyhemoglobin Sodium Potassium Chloride Carbon Dioxide BUN Creatinine Glucose POC Glucose 149 H 144 H 142 H Lactic Acid Calcium Phosphorus Magnesium AST ALT Lactate Dehydrogenase Total Bilirubin Direct Bilirubin CK-MB (CK-2) C-Reactive Protein NT-Pro-B Natriuret Pep Total Protein Albumin Arterial Blood Glucose Urine WBC (Auto) Urine Creatinine 02/23/20 02/23/20 02/23/20 05:22 11:37 18:14 WBC RBC Hgb Hct MCHC RDW MCV MCH Lymph % (Auto) [place] % (Auto) [place] # Eos # Lymph # (Auto) [place] # (Auto) Eos # (Auto) Seg Neutrophils % Seg Neuts % (Manual) Baso # (Auto) Lymphocytes % (Manual) Monocytes % (Manual) Eosinophils % (Manual) Basophils % (Manual) Seg Neutrophils # Seg Neutrophils # Man Lymphocytes # (Manual) Monocytes # (Manual) Eosinophils # (Manual) Nucleated RBC % Basophils # (Manual) PT INR APTT Heparin Anti-Xa Level ABG pH POC ABG pO2 ABG pO2 ABG HCO3 ABG O2 Saturation ABG Base Excess POC ABG pCO2 ABG Hemoglobin ABG Oxyhemoglobin ABG Sodium ABG Chloride ABG Glucose Oxyhemoglobin Sodium Potassium Chloride Carbon Dioxide BUN Creatinine Glucose POC Glucose 144 H 113 H 127 H Lactic Acid Calcium Phosphorus Magnesium AST ALT Lactate Dehydrogenase Total Bilirubin Direct Bilirubin CK-MB (CK-2) C-Reactive Protein NT-Pro-B Natriuret Pep Total Protein Albumin Arterial Blood Glucose Urine WBC (Auto) Urine Creatinine 02/23/20 02/24/20 02/24/20 23:45 05:50 11:24 WBC RBC Hgb Hct MCHC RDW MCV MCH Lymph % (Auto) [place] % (Auto) [place] # Eos # Lymph # (Auto) [place] # (Auto) Eos # (Auto) Seg Neutrophils % Seg Neuts % (Manual) Baso # (Auto) Lymphocytes % (Manual) Monocytes % (Manual) Eosinophils % (Manual) Basophils % (Manual) Seg Neutrophils # Seg Neutrophils # Man Lymphocytes # (Manual) Monocytes # (Manual) Eosinophils # (Manual) Nucleated RBC % Basophils # (Manual) PT INR APTT Heparin Anti-Xa Level ABG pH POC ABG pO2 ABG pO2 ABG HCO3 ABG O2 Saturation ABG Base Excess POC ABG pCO2 ABG Hemoglobin ABG Oxyhemoglobin ABG Sodium ABG Chloride ABG Glucose Oxyhemoglobin Sodium Potassium Chloride Carbon Dioxide BUN Creatinine Glucose POC Glucose 123 H 117 H 126 H Lactic Acid Calcium Phosphorus Magnesium AST ALT Lactate Dehydrogenase Total Bilirubin Direct Bilirubin CK-MB (CK-2) C-Reactive Protein NT-Pro-B Natriuret Pep Total Protein Albumin Arterial Blood Glucose Urine WBC (Auto) Urine Creatinine 02/24/20 02/24/20 02/25/20 18:35 23:27 05:20 WBC RBC Hgb Hct MCHC RDW MCV MCH Lymph % (Auto) [place] % (Auto) [place] # Eos # Lymph # (Auto) [place] # (Auto) Eos # (Auto) Seg Neutrophils % Seg Neuts % (Manual) Baso # (Auto) Lymphocytes % (Manual) Monocytes % (Manual) Eosinophils % (Manual) Basophils % (Manual) Seg Neutrophils # Seg Neutrophils # Man Lymphocytes # (Manual) Monocytes # (Manual) Eosinophils # (Manual) Nucleated RBC % Basophils # (Manual) PT INR APTT Heparin Anti-Xa Level ABG pH POC ABG pO2 ABG pO2 ABG HCO3 ABG O2 Saturation ABG Base Excess POC ABG pCO2 ABG Hemoglobin ABG Oxyhemoglobin ABG Sodium ABG Chloride ABG Glucose Oxyhemoglobin Sodium Potassium Chloride Carbon Dioxide BUN Creatinine Glucose POC Glucose 121 H 127 H 133 H Lactic Acid Calcium Phosphorus Magnesium AST ALT Lactate Dehydrogenase Total Bilirubin Direct Bilirubin CK-MB (CK-2) C-Reactive Protein NT-Pro-B Natriuret Pep Total Protein Albumin Arterial Blood Glucose Urine WBC (Auto) Urine Creatinine 02/25/20 02/25/20 02/25/20 12:08 17:26 23:33 WBC RBC Hgb Hct MCHC RDW MCV MCH Lymph % (Auto) [place] % (Auto) [place] # Eos # Lymph # (Auto) [place] # (Auto) Eos # (Auto) Seg Neutrophils % Seg Neuts % (Manual) Baso # (Auto) Lymphocytes % (Manual) Monocytes % (Manual) Eosinophils % (Manual) Basophils % (Manual) Seg Neutrophils # Seg Neutrophils # Man Lymphocytes # (Manual) Monocytes # (Manual) Eosinophils # (Manual) Nucleated RBC % Basophils # (Manual) PT INR APTT Heparin Anti-Xa Level ABG pH POC ABG pO2 ABG pO2 ABG HCO3 ABG O2 Saturation ABG Base Excess POC ABG pCO2 ABG Hemoglobin ABG Oxyhemoglobin ABG Sodium ABG Chloride ABG Glucose Oxyhemoglobin Sodium Potassium Chloride Carbon Dioxide BUN Creatinine Glucose POC Glucose 109 H 120 H 120 H Lactic Acid Calcium Phosphorus Magnesium AST ALT Lactate Dehydrogenase Total Bilirubin Direct Bilirubin CK-MB (CK-2) C-Reactive Protein NT-Pro-B Natriuret Pep Total Protein Albumin Arterial Blood Glucose Urine WBC (Auto) Urine Creatinine 02/26/20 02/26/20 02/27/20 05:33 07:50 12:13 WBC RBC Hgb Hct MCHC RDW MCV MCH Lymph % (Auto) [place] % (Auto) [place] # Eos # Lymph # (Auto) [place] # (Auto) Eos # (Auto) Seg Neutrophils % Seg Neuts % (Manual) Baso # (Auto) Lymphocytes % (Manual) Monocytes % (Manual) Eosinophils % (Manual) Basophils % (Manual) Seg Neutrophils # Seg Neutrophils # Man Lymphocytes # (Manual) Monocytes # (Manual) Eosinophils # (Manual) Nucleated RBC % Basophils # (Manual) PT INR APTT Heparin Anti-Xa Level ABG pH POC ABG pO2 ABG pO2 ABG HCO3 ABG O2 Saturation ABG Base Excess POC ABG pCO2 ABG Hemoglobin ABG Oxyhemoglobin ABG Sodium ABG Chloride ABG Glucose Oxyhemoglobin Sodium Potassium Chloride Carbon Dioxide BUN Creatinine Glucose POC Glucose 106 H 130 H Lactic Acid Calcium Phosphorus Magnesium AST ALT Lactate Dehydrogenase Total Bilirubin Direct Bilirubin CK-MB (CK-2) C-Reactive Protein NT-Pro-B Natriuret Pep Total Protein Albumin Arterial Blood Glucose Urine WBC (Auto) > 182.0 H Urine Creatinine 02/27/20 02/27/20 02/28/20 18:20 23:33 05:01 WBC RBC Hgb Hct MCHC RDW MCV MCH Lymph % (Auto) [place] % (Auto) [place] # Eos # Lymph # (Auto) [place] # (Auto) Eos # (Auto) Seg Neutrophils % Seg Neuts % (Manual) Baso # (Auto) Lymphocytes % (Manual) Monocytes % (Manual) Eosinophils % (Manual) Basophils % (Manual) Seg Neutrophils # Seg Neutrophils # Man Lymphocytes # (Manual) Monocytes # (Manual) Eosinophils # (Manual) Nucleated RBC % Basophils # (Manual) PT INR APTT Heparin Anti-Xa Level ABG pH POC ABG pO2 ABG pO2 ABG HCO3 ABG O2 Saturation ABG Base Excess POC ABG pCO2 ABG Hemoglobin ABG Oxyhemoglobin ABG Sodium ABG Chloride ABG Glucose Oxyhemoglobin Sodium Potassium Chloride Carbon Dioxide BUN Creatinine Glucose POC Glucose 109 H 124 H 134 H Lactic Acid Calcium Phosphorus Magnesium AST ALT Lactate Dehydrogenase Total Bilirubin Direct Bilirubin CK-MB (CK-2) C-Reactive Protein NT-Pro-B Natriuret Pep Total Protein Albumin Arterial Blood Glucose Urine WBC (Auto) Urine Creatinine 02/28/20 02/28/20 02/28/20 11:54 18:16 23:03 WBC RBC Hgb Hct MCHC RDW MCV MCH Lymph % (Auto) [place] % (Auto) [place] # Eos # Lymph # (Auto) [place] # (Auto) Eos # (Auto) Seg Neutrophils % Seg Neuts % (Manual) Baso # (Auto) Lymphocytes % (Manual) Monocytes % (Manual) Eosinophils % (Manual) Basophils % (Manual) Seg Neutrophils # Seg Neutrophils # Man Lymphocytes # (Manual) Monocytes # (Manual) Eosinophils # (Manual) Nucleated RBC % Basophils # (Manual) PT INR APTT Heparin Anti-Xa Level ABG pH POC ABG pO2 ABG pO2 ABG HCO3 ABG O2 Saturation ABG Base Excess POC ABG pCO2 ABG Hemoglobin ABG Oxyhemoglobin ABG Sodium ABG Chloride ABG Glucose Oxyhemoglobin Sodium Potassium Chloride Carbon Dioxide BUN Creatinine Glucose POC Glucose 133 H 134 H 146 H Lactic Acid Calcium Phosphorus Magnesium AST ALT Lactate Dehydrogenase Total Bilirubin Direct Bilirubin CK-MB (CK-2) C-Reactive Protein NT-Pro-B Natriuret Pep Total Protein Albumin Arterial Blood Glucose Urine WBC (Auto) Urine Creatinine 02/29/20 02/29/20 02/29/20 05:24 11:34 17:12 WBC RBC Hgb Hct MCHC RDW MCV MCH Lymph % (Auto) [place] % (Auto) [place] # Eos # Lymph # (Auto) [place] # (Auto) Eos # (Auto) Seg Neutrophils % Seg Neuts % (Manual) Baso # (Auto) Lymphocytes % (Manual) Monocytes % (Manual) Eosinophils % (Manual) Basophils % (Manual) Seg Neutrophils # Seg Neutrophils # Man Lymphocytes # (Manual) Monocytes # (Manual) Eosinophils # (Manual) Nucleated RBC % Basophils # (Manual) PT INR APTT Heparin Anti-Xa Level ABG pH POC ABG pO2 ABG pO2 ABG HCO3 ABG O2 Saturation ABG Base Excess POC ABG pCO2 ABG Hemoglobin ABG Oxyhemoglobin ABG Sodium ABG Chloride ABG Glucose Oxyhemoglobin Sodium Potassium Chloride Carbon Dioxide BUN Creatinine Glucose POC Glucose 139 H 141 H 157 H Lactic Acid Calcium Phosphorus Magnesium AST ALT Lactate Dehydrogenase Total Bilirubin Direct Bilirubin CK-MB (CK-2) C-Reactive Protein NT-Pro-B Natriuret Pep Total Protein Albumin Arterial Blood Glucose Urine WBC (Auto) Urine Creatinine 02/29/20 03/01/20 03/01/20 23:35 06:00 11:53 WBC RBC Hgb Hct MCHC RDW MCV MCH Lymph % (Auto) [place] % (Auto) [place] # Eos # Lymph # (Auto) [place] # (Auto) Eos # (Auto) Seg Neutrophils % Seg Neuts % (Manual) Baso # (Auto) Lymphocytes % (Manual) Monocytes % (Manual) Eosinophils % (Manual) Basophils % (Manual) Seg Neutrophils # Seg Neutrophils # Man Lymphocytes # (Manual) Monocytes # (Manual) Eosinophils # (Manual) Nucleated RBC % Basophils # (Manual) PT INR APTT Heparin Anti-Xa Level ABG pH POC ABG pO2 ABG pO2 ABG HCO3 ABG O2 Saturation ABG Base Excess POC ABG pCO2 ABG Hemoglobin ABG Oxyhemoglobin ABG Sodium ABG Chloride ABG Glucose Oxyhemoglobin Sodium Potassium Chloride Carbon Dioxide BUN Creatinine Glucose POC Glucose 120 H 132 H 136 H Lactic Acid Calcium Phosphorus Magnesium AST ALT Lactate Dehydrogenase Total Bilirubin Direct Bilirubin CK-MB (CK-2) C-Reactive Protein NT-Pro-B Natriuret Pep Total Protein Albumin Arterial Blood Glucose Urine WBC (Auto) Urine Creatinine 03/01/20 03/01/20 03/02/20 17:36 23:16 05:12 WBC RBC Hgb Hct MCHC RDW MCV MCH Lymph % (Auto) [place] % (Auto) [place] # Eos # Lymph # (Auto) [place] # (Auto) Eos # (Auto) Seg Neutrophils % Seg Neuts % (Manual) Baso # (Auto) Lymphocytes % (Manual) Monocytes % (Manual) Eosinophils % (Manual) Basophils % (Manual) Seg Neutrophils # Seg Neutrophils # Man Lymphocytes # (Manual) Monocytes # (Manual) Eosinophils # (Manual) Nucleated RBC % Basophils # (Manual) PT INR APTT Heparin Anti-Xa Level ABG pH POC ABG pO2 ABG pO2 ABG HCO3 ABG O2 Saturation ABG Base Excess POC ABG pCO2 ABG Hemoglobin ABG Oxyhemoglobin ABG Sodium ABG Chloride ABG Glucose Oxyhemoglobin Sodium Potassium Chloride Carbon Dioxide BUN Creatinine Glucose POC Glucose 171 H 164 H 176 H Lactic Acid Calcium Phosphorus Magnesium AST ALT Lactate Dehydrogenase Total Bilirubin Direct Bilirubin CK-MB (CK-2) C-Reactive Protein NT-Pro-B Natriuret Pep Total Protein Albumin Arterial Blood Glucose Urine WBC (Auto) Urine Creatinine 03/02/20 03/02/20 03/03/20 11:42 18:01 00:06 WBC RBC Hgb Hct MCHC RDW MCV MCH Lymph % (Auto) [place] % (Auto) [place] # Eos # Lymph # (Auto) [place] # (Auto) Eos # (Auto) Seg Neutrophils % Seg Neuts % (Manual) Baso # (Auto) Lymphocytes % (Manual) Monocytes % (Manual) Eosinophils % (Manual) Basophils % (Manual) Seg Neutrophils # Seg Neutrophils # Man Lymphocytes # (Manual) Monocytes # (Manual) Eosinophils # (Manual) Nucleated RBC % Basophils # (Manual) PT INR APTT Heparin Anti-Xa Level ABG pH POC ABG pO2 ABG pO2 ABG HCO3 ABG O2 Saturation ABG Base Excess POC ABG pCO2 ABG Hemoglobin ABG Oxyhemoglobin ABG Sodium ABG Chloride ABG Glucose Oxyhemoglobin Sodium Potassium Chloride Carbon Dioxide BUN Creatinine Glucose POC Glucose 150 H 156 H 156 H Lactic Acid Calcium Phosphorus Magnesium AST ALT Lactate Dehydrogenase Total Bilirubin Direct Bilirubin CK-MB (CK-2) C-Reactive Protein NT-Pro-B Natriuret Pep Total Protein Albumin Arterial Blood Glucose Urine WBC (Auto) Urine Creatinine 03/03/20 03/03/20 03/03/20 03:31 11:20 16:55 WBC RBC Hgb Hct MCHC RDW MCV MCH Lymph % (Auto) [place] % (Auto) [place] # Eos # Lymph # (Auto) [place] # (Auto) Eos # (Auto) Seg Neutrophils % Seg Neuts % (Manual) Baso # (Auto) Lymphocytes % (Manual) Monocytes % (Manual) Eosinophils % (Manual) Basophils % (Manual) Seg Neutrophils # Seg Neutrophils # Man Lymphocytes # (Manual) Monocytes # (Manual) Eosinophils # (Manual) Nucleated RBC % Basophils # (Manual) PT INR APTT Heparin Anti-Xa Level ABG pH POC ABG pO2 ABG pO2 ABG HCO3 ABG O2 Saturation ABG Base Excess POC ABG pCO2 ABG Hemoglobin ABG Oxyhemoglobin ABG Sodium ABG Chloride ABG Glucose Oxyhemoglobin Sodium Potassium Chloride Carbon Dioxide BUN Creatinine Glucose POC Glucose 164 H 125 H 211 H Lactic Acid Calcium Phosphorus Magnesium AST ALT Lactate Dehydrogenase Total Bilirubin Direct Bilirubin CK-MB (CK-2) C-Reactive Protein NT-Pro-B Natriuret Pep Total Protein Albumin Arterial Blood Glucose Urine WBC (Auto) Urine Creatinine 03/04/20 03/04/20 03/04/20 00:29 05:20 12:09 WBC RBC Hgb Hct MCHC RDW MCV MCH Lymph % (Auto) [place] % (Auto) [place] # Eos # Lymph # (Auto) [place] # (Auto) Eos # (Auto) Seg Neutrophils % Seg Neuts % (Manual) Baso # (Auto) Lymphocytes % (Manual) Monocytes % (Manual) Eosinophils % (Manual) Basophils % (Manual) Seg Neutrophils # Seg Neutrophils # Man Lymphocytes # (Manual) Monocytes # (Manual) Eosinophils # (Manual) Nucleated RBC % Basophils # (Manual) PT INR APTT Heparin Anti-Xa Level ABG pH POC ABG pO2 ABG pO2 ABG HCO3 ABG O2 Saturation ABG Base Excess POC ABG pCO2 ABG Hemoglobin ABG Oxyhemoglobin ABG Sodium ABG Chloride ABG Glucose Oxyhemoglobin Sodium Potassium Chloride Carbon Dioxide BUN Creatinine Glucose POC Glucose 169 H 154 H 197 H Lactic Acid Calcium Phosphorus Magnesium AST ALT Lactate Dehydrogenase Total Bilirubin Direct Bilirubin CK-MB (CK-2) C-Reactive Protein NT-Pro-B Natriuret Pep Total Protein Albumin Arterial Blood Glucose Urine WBC (Auto) Urine Creatinine 03/04/20 03/04/20 03/04/20 18:00 20:38 20:38 WBC RBC Hgb 10.1 L Hct 32.7 L MCHC 31 L RDW 24.7 H MCV 79 L MCH 24 L Lymph % (Auto) [place] % (Auto) 8.9 H [place] # Eos # Lymph # (Auto) [place] # (Auto) Eos # (Auto) Seg Neutrophils % Seg Neuts % (Manual) Baso # (Auto) Lymphocytes % (Manual) Monocytes % (Manual) Eosinophils % (Manual) Basophils % (Manual) Seg Neutrophils # Seg Neutrophils # Man Lymphocytes # (Manual) Monocytes # (Manual) Eosinophils # (Manual) Nucleated RBC % Basophils # (Manual) PT INR APTT Heparin Anti-Xa Level ABG pH POC ABG pO2 ABG pO2 ABG HCO3 ABG O2 Saturation ABG Base Excess POC ABG pCO2 ABG Hemoglobin ABG Oxyhemoglobin ABG Sodium ABG Chloride ABG Glucose Oxyhemoglobin Sodium 136 L Potassium Chloride Carbon Dioxide BUN 25 H Creatinine 0.5 L Glucose 148 H POC Glucose 146 H Lactic Acid Calcium Phosphorus Magnesium AST ALT Lactate Dehydrogenase Total Bilirubin Direct Bilirubin CK-MB (CK-2) C-Reactive Protein NT-Pro-B Natriuret Pep Total Protein Albumin Arterial Blood Glucose Urine WBC (Auto) Urine Creatinine 03/04/20 03/05/20 03/05/20 23:17 05:44 11:32 WBC RBC Hgb Hct MCHC RDW MCV MCH Lymph % (Auto) [place] % (Auto) [place] # Eos # Lymph # (Auto) [place] # (Auto) Eos # (Auto) Seg Neutrophils % Seg Neuts % (Manual) Baso # (Auto) Lymphocytes % (Manual) Monocytes % (Manual) Eosinophils % (Manual) Basophils % (Manual) Seg Neutrophils # Seg Neutrophils # Man Lymphocytes # (Manual) Monocytes # (Manual) Eosinophils # (Manual) Nucleated RBC % Basophils # (Manual) PT INR APTT Heparin Anti-Xa Level ABG pH POC ABG pO2 ABG pO2 ABG HCO3 ABG O2 Saturation ABG Base Excess POC ABG pCO2 ABG Hemoglobin ABG Oxyhemoglobin ABG Sodium ABG Chloride ABG Glucose Oxyhemoglobin Sodium Potassium Chloride Carbon Dioxide BUN Creatinine Glucose POC Glucose 139 H 155 H 124 H Lactic Acid Calcium Phosphorus Magnesium AST ALT Lactate Dehydrogenase Total Bilirubin Direct Bilirubin CK-MB (CK-2) C-Reactive Protein NT-Pro-B Natriuret Pep Total Protein Albumin Arterial Blood Glucose Urine WBC (Auto) Urine Creatinine 03/05/20 03/05/20 03/06/20 17:45 23:18 12:16 WBC RBC Hgb Hct MCHC RDW MCV MCH Lymph % (Auto) [place] % (Auto) [place] # Eos # Lymph # (Auto) [place] # (Auto) Eos # (Auto) Seg Neutrophils % Seg Neuts % (Manual) Baso # (Auto) Lymphocytes % (Manual) Monocytes % (Manual) Eosinophils % (Manual) Basophils % (Manual) Seg Neutrophils # Seg Neutrophils # Man Lymphocytes # (Manual) Monocytes # (Manual) Eosinophils # (Manual) Nucleated RBC % Basophils # (Manual) PT INR APTT Heparin Anti-Xa Level ABG pH POC ABG pO2 ABG pO2 ABG HCO3 ABG O2 Saturation ABG Base Excess POC ABG pCO2 ABG Hemoglobin ABG Oxyhemoglobin ABG Sodium ABG Chloride ABG Glucose Oxyhemoglobin Sodium Potassium Chloride Carbon Dioxide BUN Creatinine Glucose POC Glucose 171 H 114 H 155 H Lactic Acid Calcium Phosphorus Magnesium AST ALT Lactate Dehydrogenase Total Bilirubin Direct Bilirubin CK-MB (CK-2) C-Reactive Protein NT-Pro-B Natriuret Pep Total Protein Albumin Arterial Blood Glucose Urine WBC (Auto) Urine Creatinine 03/06/20 03/06/20 03/07/20 17:27 23:48 06:02 WBC RBC Hgb Hct MCHC RDW MCV MCH Lymph % (Auto) [place] % (Auto) [place] # Eos # Lymph # (Auto) [place] # (Auto) Eos # (Auto) Seg Neutrophils % Seg Neuts % (Manual) Baso # (Auto) Lymphocytes % (Manual) Monocytes % (Manual) Eosinophils % (Manual) Basophils % (Manual) Seg Neutrophils # Seg Neutrophils # Man Lymphocytes # (Manual) Monocytes # (Manual) Eosinophils # (Manual) Nucleated RBC % Basophils # (Manual) PT INR APTT Heparin Anti-Xa Level ABG pH POC ABG pO2 ABG pO2 ABG HCO3 ABG O2 Saturation ABG Base Excess POC ABG pCO2 ABG Hemoglobin ABG Oxyhemoglobin ABG Sodium ABG Chloride ABG Glucose Oxyhemoglobin Sodium Potassium Chloride Carbon Dioxide BUN Creatinine Glucose POC Glucose 116 H 142 H 161 H Lactic Acid Calcium Phosphorus Magnesium AST ALT Lactate Dehydrogenase Total Bilirubin Direct Bilirubin CK-MB (CK-2) C-Reactive Protein NT-Pro-B Natriuret Pep Total Protein Albumin Arterial Blood Glucose Urine WBC (Auto) Urine Creatinine 03/07/20 03/08/20 03/08/20 11:36 05:18 11:51 WBC RBC Hgb Hct MCHC RDW MCV MCH Lymph % (Auto) [place] % (Auto) [place] # Eos # Lymph # (Auto) [place] # (Auto) Eos # (Auto) Seg Neutrophils % Seg Neuts % (Manual) Baso # (Auto) Lymphocytes % (Manual) Monocytes % (Manual) Eosinophils % (Manual) Basophils % (Manual) Seg Neutrophils # Seg Neutrophils # Man Lymphocytes # (Manual) Monocytes # (Manual) Eosinophils # (Manual) Nucleated RBC % Basophils # (Manual) PT INR APTT Heparin Anti-Xa Level ABG pH POC ABG pO2 ABG pO2 ABG HCO3 ABG O2 Saturation ABG Base Excess POC ABG pCO2 ABG Hemoglobin ABG Oxyhemoglobin ABG Sodium ABG Chloride ABG Glucose Oxyhemoglobin Sodium Potassium Chloride Carbon Dioxide BUN Creatinine Glucose POC Glucose 127 H 142 H 135 H Lactic Acid Calcium Phosphorus Magnesium AST ALT Lactate Dehydrogenase Total Bilirubin Direct Bilirubin CK-MB (CK-2) C-Reactive Protein NT-Pro-B Natriuret Pep Total Protein Albumin Arterial Blood Glucose Urine WBC (Auto) Urine Creatinine 03/08/20 03/08/20 03/09/20 18:14 23:45 05:36 WBC RBC Hgb Hct MCHC RDW MCV MCH Lymph % (Auto) [place] % (Auto) [place] # Eos # Lymph # (Auto) [place] # (Auto) Eos # (Auto) Seg Neutrophils % Seg Neuts % (Manual) Baso # (Auto) Lymphocytes % (Manual) Monocytes % (Manual) Eosinophils % (Manual) Basophils % (Manual) Seg Neutrophils # Seg Neutrophils # Man Lymphocytes # (Manual) Monocytes # (Manual) Eosinophils # (Manual) Nucleated RBC % Basophils # (Manual) PT INR APTT Heparin Anti-Xa Level ABG pH POC ABG pO2 ABG pO2 ABG HCO3 ABG O2 Saturation ABG Base Excess POC ABG pCO2 ABG Hemoglobin ABG Oxyhemoglobin ABG Sodium ABG Chloride ABG Glucose Oxyhemoglobin Sodium Potassium Chloride Carbon Dioxide BUN Creatinine Glucose POC Glucose 125 H 143 H 158 H Lactic Acid Calcium Phosphorus Magnesium AST ALT Lactate Dehydrogenase Total Bilirubin Direct Bilirubin CK-MB (CK-2) C-Reactive Protein NT-Pro-B Natriuret Pep Total Protein Albumin Arterial Blood Glucose Urine WBC (Auto) Urine Creatinine 03/09/20 03/09/20 03/09/20 06:32 06:32 11:34 WBC RBC Hgb 9.8 L Hct 31.6 L MCHC 31 L RDW 23.1 H MCV 80 L MCH 25 L Lymph % (Auto) 35.1 H [place] % (Auto) 11.4 H [place] # Eos # Lymph # (Auto) [place] # (Auto) Eos # (Auto) Seg Neutrophils % Seg Neuts % (Manual) Baso # (Auto) Lymphocytes % (Manual) Monocytes % (Manual) Eosinophils % (Manual) Basophils % (Manual) Seg Neutrophils # Seg Neutrophils # Man Lymphocytes # (Manual) Monocytes # (Manual) Eosinophils # (Manual) Nucleated RBC % Basophils # (Manual) PT INR APTT Heparin Anti-Xa Level ABG pH POC ABG pO2 ABG pO2 ABG HCO3 ABG O2 Saturation ABG Base Excess POC ABG pCO2 ABG Hemoglobin ABG Oxyhemoglobin ABG Sodium ABG Chloride ABG Glucose Oxyhemoglobin Sodium 136 L Potassium Chloride Carbon Dioxide BUN 25 H Creatinine 0.6 L Glucose 170 H POC Glucose 140 H Lactic Acid Calcium Phosphorus Magnesium AST ALT Lactate Dehydrogenase Total Bilirubin Direct Bilirubin CK-MB (CK-2) C-Reactive Protein NT-Pro-B Natriuret Pep Total Protein Albumin Arterial Blood Glucose Urine WBC (Auto) Urine Creatinine 03/09/20 03/09/20 03/10/20 18:10 23:11 05:41 WBC RBC Hgb Hct MCHC RDW MCV MCH Lymph % (Auto) [place] % (Auto) [place] # Eos # Lymph # (Auto) [place] # (Auto) Eos # (Auto) Seg Neutrophils % Seg Neuts % (Manual) Baso # (Auto) Lymphocytes % (Manual) Monocytes % (Manual) Eosinophils % (Manual) Basophils % (Manual) Seg Neutrophils # Seg Neutrophils # Man Lymphocytes # (Manual) Monocytes # (Manual) Eosinophils # (Manual) Nucleated RBC % Basophils # (Manual) PT INR APTT Heparin Anti-Xa Level ABG pH POC ABG pO2 ABG pO2 ABG HCO3 ABG O2 Saturation ABG Base Excess POC ABG pCO2 ABG Hemoglobin ABG Oxyhemoglobin ABG Sodium ABG Chloride ABG Glucose Oxyhemoglobin Sodium Potassium Chloride Carbon Dioxide BUN Creatinine Glucose POC Glucose 153 H 111 H 138 H Lactic Acid Calcium Phosphorus Magnesium AST ALT Lactate Dehydrogenase Total Bilirubin Direct Bilirubin CK-MB (CK-2) C-Reactive Protein NT-Pro-B Natriuret Pep Total Protein Albumin Arterial Blood Glucose Urine WBC (Auto) Urine Creatinine 03/10/20 03/10/20 03/10/20 11:15 17:58 23:36 WBC RBC Hgb Hct MCHC RDW MCV MCH Lymph % (Auto) [place] % (Auto) [place] # Eos # Lymph # (Auto) [place] # (Auto) Eos # (Auto) Seg Neutrophils % Seg Neuts % (Manual) Baso # (Auto) Lymphocytes % (Manual) Monocytes % (Manual) Eosinophils % (Manual) Basophils % (Manual) Seg Neutrophils # Seg Neutrophils # Man Lymphocytes # (Manual) Monocytes # (Manual) Eosinophils # (Manual) Nucleated RBC % Basophils # (Manual) PT INR APTT Heparin Anti-Xa Level ABG pH POC ABG pO2 ABG pO2 ABG HCO3 ABG O2 Saturation ABG Base Excess POC ABG pCO2 ABG Hemoglobin ABG Oxyhemoglobin ABG Sodium ABG Chloride ABG Glucose Oxyhemoglobin Sodium Potassium Chloride Carbon Dioxide BUN Creatinine Glucose POC Glucose 141 H 149 H 148 H Lactic Acid Calcium Phosphorus Magnesium AST ALT Lactate Dehydrogenase Total Bilirubin Direct Bilirubin CK-MB (CK-2) C-Reactive Protein NT-Pro-B Natriuret Pep Total Protein Albumin Arterial Blood Glucose Urine WBC (Auto) Urine Creatinine 03/11/20 03/11/20 03/12/20 05:55 17:43 04:45 WBC RBC Hgb Hct MCHC RDW MCV MCH Lymph % (Auto) [place] % (Auto) [place] # Eos # Lymph # (Auto) [place] # (Auto) Eos # (Auto) Seg Neutrophils % Seg Neuts % (Manual) Baso # (Auto) Lymphocytes % (Manual) Monocytes % (Manual) Eosinophils % (Manual) Basophils % (Manual) Seg Neutrophils # Seg Neutrophils # Man Lymphocytes # (Manual) Monocytes # (Manual) Eosinophils # (Manual) Nucleated RBC % Basophils # (Manual) PT INR APTT Heparin Anti-Xa Level ABG pH 7.454 H POC ABG pO2 69.2 L ABG pO2 ABG HCO3 ABG O2 Saturation ABG Base Excess POC ABG pCO2 ABG Hemoglobin 11.2 L ABG Oxyhemoglobin ABG Sodium 134.7 L ABG Chloride ABG Glucose 151 H Oxyhemoglobin Sodium Potassium Chloride Carbon Dioxide BUN Creatinine Glucose POC Glucose 181 H 107 H Lactic Acid Calcium Phosphorus Magnesium AST ALT Lactate Dehydrogenase Total Bilirubin Direct Bilirubin CK-MB (CK-2) C-Reactive Protein NT-Pro-B Natriuret Pep Total Protein Albumin Arterial Blood Glucose 151 H Urine WBC (Auto) Urine Creatinine 03/12/20 03/12/20 03/12/20 05:36 11:36 17:40 WBC RBC Hgb Hct MCHC RDW MCV MCH Lymph % (Auto) [place] % (Auto) [place] # Eos # Lymph # (Auto) [place] # (Auto) Eos # (Auto) Seg Neutrophils % Seg Neuts % (Manual) Baso # (Auto) Lymphocytes % (Manual) Monocytes % (Manual) Eosinophils % (Manual) Basophils % (Manual) Seg Neutrophils # Seg Neutrophils # Man Lymphocytes # (Manual) Monocytes # (Manual) Eosinophils # (Manual) Nucleated RBC % Basophils # (Manual) PT INR APTT Heparin Anti-Xa Level ABG pH POC ABG pO2 ABG pO2 ABG HCO3 ABG O2 Saturation ABG Base Excess POC ABG pCO2 ABG Hemoglobin ABG Oxyhemoglobin ABG Sodium ABG Chloride ABG Glucose Oxyhemoglobin Sodium Potassium Chloride Carbon Dioxide BUN Creatinine Glucose POC Glucose 137 H 122 H 116 H Lactic Acid Calcium Phosphorus Magnesium AST ALT Lactate Dehydrogenase Total Bilirubin Direct Bilirubin CK-MB (CK-2) C-Reactive Protein NT-Pro-B Natriuret Pep Total Protein Albumin Arterial Blood Glucose Urine WBC (Auto) Urine Creatinine 03/12/20 03/13/20 03/13/20 23:17 05:47 11:35 WBC RBC Hgb Hct MCHC RDW MCV MCH Lymph % (Auto) [place] % (Auto) [place] # Eos # Lymph # (Auto) [place] # (Auto) Eos # (Auto) Seg Neutrophils % Seg Neuts % (Manual) Baso # (Auto) Lymphocytes % (Manual) Monocytes % (Manual) Eosinophils % (Manual) Basophils % (Manual) Seg Neutrophils # Seg Neutrophils # Man Lymphocytes # (Manual) Monocytes # (Manual) Eosinophils # (Manual) Nucleated RBC % Basophils # (Manual) PT INR APTT Heparin Anti-Xa Level ABG pH POC ABG pO2 ABG pO2 ABG HCO3 ABG O2 Saturation ABG Base Excess POC ABG pCO2 ABG Hemoglobin ABG Oxyhemoglobin ABG Sodium ABG Chloride ABG Glucose Oxyhemoglobin Sodium Potassium Chloride Carbon Dioxide BUN Creatinine Glucose POC Glucose 118 H 142 H 146 H Lactic Acid Calcium Phosphorus Magnesium AST ALT Lactate Dehydrogenase Total Bilirubin Direct Bilirubin CK-MB (CK-2) C-Reactive Protein NT-Pro-B Natriuret Pep Total Protein Albumin Arterial Blood Glucose Urine WBC (Auto) Urine Creatinine 03/13/20 03/13/20 03/14/20 17:25 23:27 05:04 WBC RBC Hgb Hct MCHC RDW MCV MCH Lymph % (Auto) [place] % (Auto) [place] # Eos # Lymph # (Auto) [place] # (Auto) Eos # (Auto) Seg Neutrophils % Seg Neuts % (Manual) Baso # (Auto) Lymphocytes % (Manual) Monocytes % (Manual) Eosinophils % (Manual) Basophils % (Manual) Seg Neutrophils # Seg Neutrophils # Man Lymphocytes # (Manual) Monocytes # (Manual) Eosinophils # (Manual) Nucleated RBC % Basophils # (Manual) PT INR APTT Heparin Anti-Xa Level ABG pH POC ABG pO2 ABG pO2 ABG HCO3 ABG O2 Saturation ABG Base Excess POC ABG pCO2 ABG Hemoglobin ABG Oxyhemoglobin ABG Sodium ABG Chloride ABG Glucose Oxyhemoglobin Sodium Potassium Chloride Carbon Dioxide BUN Creatinine Glucose POC Glucose 138 H 160 H 159 H Lactic Acid Calcium Phosphorus Magnesium AST ALT Lactate Dehydrogenase Total Bilirubin Direct Bilirubin CK-MB (CK-2) C-Reactive Protein NT-Pro-B Natriuret Pep Total Protein Albumin Arterial Blood Glucose Urine WBC (Auto) Urine Creatinine 03/14/20 03/14/20 03/15/20 11:19 16:18 00:18 WBC RBC Hgb Hct MCHC RDW MCV MCH Lymph % (Auto) [place] % (Auto) [place] # Eos # Lymph # (Auto) [place] # (Auto) Eos # (Auto) Seg Neutrophils % Seg Neuts % (Manual) Baso # (Auto) Lymphocytes % (Manual) Monocytes % (Manual) Eosinophils % (Manual) Basophils % (Manual) Seg Neutrophils # Seg Neutrophils # Man Lymphocytes # (Manual) Monocytes # (Manual) Eosinophils # (Manual) Nucleated RBC % Basophils # (Manual) PT INR APTT Heparin Anti-Xa Level ABG pH POC ABG pO2 ABG pO2 ABG HCO3 ABG O2 Saturation ABG Base Excess POC ABG pCO2 ABG Hemoglobin ABG Oxyhemoglobin ABG Sodium ABG Chloride ABG Glucose Oxyhemoglobin Sodium Potassium Chloride Carbon Dioxide BUN Creatinine Glucose POC Glucose 130 H 170 H 125 H Lactic Acid Calcium Phosphorus Magnesium AST ALT Lactate Dehydrogenase Total Bilirubin Direct Bilirubin CK-MB (CK-2) C-Reactive Protein NT-Pro-B Natriuret Pep Total Protein Albumin Arterial Blood Glucose Urine WBC (Auto) Urine Creatinine 03/15/20 03/15/20 03/15/20 04:05 04:05 05:36 WBC RBC Hgb 10.0 L Hct 31.6 L MCHC RDW 22.4 H MCV 77 L MCH 24 L Lymph % (Auto) 36.2 H [place] % (Auto) 9.4 H [place] # Eos # Lymph # (Auto) [place] # (Auto) Eos # (Auto) Seg Neutrophils % Seg Neuts % (Manual) Baso # (Auto) Lymphocytes % (Manual) Monocytes % (Manual) Eosinophils % (Manual) Basophils % (Manual) Seg Neutrophils # Seg Neutrophils # Man Lymphocytes # (Manual) Monocytes # (Manual) Eosinophils # (Manual) Nucleated RBC % Basophils # (Manual) PT INR APTT Heparin Anti-Xa Level ABG pH POC ABG pO2 ABG pO2 ABG HCO3 ABG O2 Saturation ABG Base Excess POC ABG pCO2 ABG Hemoglobin ABG Oxyhemoglobin ABG Sodium ABG Chloride ABG Glucose Oxyhemoglobin Sodium Potassium Chloride Carbon Dioxide 32 H BUN Creatinine 0.5 L Glucose 141 H POC Glucose 130 H Lactic Acid Calcium Phosphorus Magnesium AST ALT Lactate Dehydrogenase Total Bilirubin Direct Bilirubin CK-MB (CK-2) C-Reactive Protein NT-Pro-B Natriuret Pep Total Protein Albumin Arterial Blood Glucose Urine WBC (Auto) Urine Creatinine 03/15/20 03/15/20 03/15/20 11:41 17:38 23:16 WBC RBC Hgb Hct MCHC RDW MCV MCH Lymph % (Auto) [place] % (Auto) [place] # Eos # Lymph # (Auto) [place] # (Auto) Eos # (Auto) Seg Neutrophils % Seg Neuts % (Manual) Baso # (Auto) Lymphocytes % (Manual) Monocytes % (Manual) Eosinophils % (Manual) Basophils % (Manual) Seg Neutrophils # Seg Neutrophils # Man Lymphocytes # (Manual) Monocytes # (Manual) Eosinophils # (Manual) Nucleated RBC % Basophils # (Manual) PT INR APTT Heparin Anti-Xa Level ABG pH POC ABG pO2 ABG pO2 ABG HCO3 ABG O2 Saturation ABG Base Excess POC ABG pCO2 ABG Hemoglobin ABG Oxyhemoglobin ABG Sodium ABG Chloride ABG Glucose Oxyhemoglobin Sodium Potassium Chloride Carbon Dioxide BUN Creatinine Glucose POC Glucose 114 H 144 H 116 H Lactic Acid Calcium Phosphorus Magnesium AST ALT Lactate Dehydrogenase Total Bilirubin Direct Bilirubin CK-MB (CK-2) C-Reactive Protein NT-Pro-B Natriuret Pep Total Protein Albumin Arterial Blood Glucose Urine WBC (Auto) Urine Creatinine 03/16/20 03/16/20 03/16/20 05:39 13:16 18:29 WBC RBC Hgb Hct MCHC RDW MCV MCH Lymph % (Auto) [place] % (Auto) [place] # Eos # Lymph # (Auto) [place] # (Auto) Eos # (Auto) Seg Neutrophils % Seg Neuts % (Manual) Baso # (Auto) Lymphocytes % (Manual) Monocytes % (Manual) Eosinophils % (Manual) Basophils % (Manual) Seg Neutrophils # Seg Neutrophils # Man Lymphocytes # (Manual) Monocytes # (Manual) Eosinophils # (Manual) Nucleated RBC % Basophils # (Manual) PT INR APTT Heparin Anti-Xa Level ABG pH POC ABG pO2 ABG pO2 ABG HCO3 ABG O2 Saturation ABG Base Excess POC ABG pCO2 ABG Hemoglobin ABG Oxyhemoglobin ABG Sodium ABG Chloride ABG Glucose Oxyhemoglobin Sodium Potassium Chloride Carbon Dioxide BUN Creatinine Glucose POC Glucose 125 H 153 H 135 H Lactic Acid Calcium Phosphorus Magnesium AST ALT Lactate Dehydrogenase Total Bilirubin Direct Bilirubin CK-MB (CK-2) C-Reactive Protein NT-Pro-B Natriuret Pep Total Protein Albumin Arterial Blood Glucose Urine WBC (Auto) Urine Creatinine 03/16/20 03/17/20 03/17/20 23:32 05:50 11:38 WBC RBC Hgb Hct MCHC RDW MCV MCH Lymph % (Auto) [place] % (Auto) [place] # Eos # Lymph # (Auto) [place] # (Auto) Eos # (Auto) Seg Neutrophils % Seg Neuts % (Manual) Baso # (Auto) Lymphocytes % (Manual) Monocytes % (Manual) Eosinophils % (Manual) Basophils % (Manual) Seg Neutrophils # Seg Neutrophils # Man Lymphocytes # (Manual) Monocytes # (Manual) Eosinophils # (Manual) Nucleated RBC % Basophils # (Manual) PT INR APTT Heparin Anti-Xa Level ABG pH POC ABG pO2 ABG pO2 ABG HCO3 ABG O2 Saturation ABG Base Excess POC ABG pCO2 ABG Hemoglobin ABG Oxyhemoglobin ABG Sodium ABG Chloride ABG Glucose Oxyhemoglobin Sodium Potassium Chloride Carbon Dioxide BUN Creatinine Glucose POC Glucose 137 H 160 H 134 H Lactic Acid Calcium Phosphorus Magnesium AST ALT Lactate Dehydrogenase Total Bilirubin Direct Bilirubin CK-MB (CK-2) C-Reactive Protein NT-Pro-B Natriuret Pep Total Protein Albumin Arterial Blood Glucose Urine WBC (Auto) Urine Creatinine 03/17/20 03/17/20 03/18/20 16:59 23:29 05:39 WBC RBC Hgb Hct MCHC RDW MCV MCH Lymph % (Auto) [place] % (Auto) [place] # Eos # Lymph # (Auto) [place] # (Auto) Eos # (Auto) Seg Neutrophils % Seg Neuts % (Manual) Baso # (Auto) Lymphocytes % (Manual) Monocytes % (Manual) Eosinophils % (Manual) Basophils % (Manual) Seg Neutrophils # Seg Neutrophils # Man Lymphocytes # (Manual) Monocytes # (Manual) Eosinophils # (Manual) Nucleated RBC % Basophils # (Manual) PT INR APTT Heparin Anti-Xa Level ABG pH POC ABG pO2 ABG pO2 ABG HCO3 ABG O2 Saturation ABG Base Excess POC ABG pCO2 ABG Hemoglobin ABG Oxyhemoglobin ABG Sodium ABG Chloride ABG Glucose Oxyhemoglobin Sodium Potassium Chloride Carbon Dioxide BUN Creatinine Glucose POC Glucose 120 H 141 H 181 H Lactic Acid Calcium Phosphorus Magnesium AST ALT Lactate Dehydrogenase Total Bilirubin Direct Bilirubin CK-MB (CK-2) C-Reactive Protein NT-Pro-B Natriuret Pep Total Protein Albumin Arterial Blood Glucose Urine WBC (Auto) Urine Creatinine 03/18/20 03/18/20 03/18/20 11:18 15:34 17:42 WBC RBC Hgb Hct MCHC RDW MCV MCH Lymph % (Auto) [place] % (Auto) [place] # Eos # Lymph # (Auto) [place] # (Auto) Eos # (Auto) Seg Neutrophils % Seg Neuts % (Manual) Baso # (Auto) Lymphocytes % (Manual) Monocytes % (Manual) Eosinophils % (Manual) Basophils % (Manual) Seg Neutrophils # Seg Neutrophils # Man Lymphocytes # (Manual) Monocytes # (Manual) Eosinophils # (Manual) Nucleated RBC % Basophils # (Manual) PT INR APTT Heparin Anti-Xa Level ABG pH POC ABG pO2 ABG pO2 ABG HCO3 ABG O2 Saturation ABG Base Excess POC ABG pCO2 ABG Hemoglobin ABG Oxyhemoglobin ABG Sodium ABG Chloride ABG Glucose Oxyhemoglobin Sodium 132 L Potassium 5.4 H D Chloride 96.8 L Carbon Dioxide BUN 24 H Creatinine 0.6 L Glucose 164 H POC Glucose 142 H 118 H Lactic Acid Calcium Phosphorus Magnesium AST ALT Lactate Dehydrogenase Total Bilirubin Direct Bilirubin CK-MB (CK-2) C-Reactive Protein NT-Pro-B Natriuret Pep Total Protein 6.2 L Albumin 2.8 L Arterial Blood Glucose Urine WBC (Auto) Urine Creatinine 03/18/20 03/19/20 03/19/20 23:57 05:40 07:50 WBC RBC Hgb Hct MCHC RDW MCV MCH Lymph % (Auto) [place] % (Auto) [place] # Eos # Lymph # (Auto) [place] # (Auto) Eos # (Auto) Seg Neutrophils % Seg Neuts % (Manual) Baso # (Auto) Lymphocytes % (Manual) Monocytes % (Manual) Eosinophils % (Manual) Basophils % (Manual) Seg Neutrophils # Seg Neutrophils # Man Lymphocytes # (Manual) Monocytes # (Manual) Eosinophils # (Manual) Nucleated RBC % Basophils # (Manual) PT INR APTT Heparin Anti-Xa Level ABG pH POC ABG pO2 ABG pO2 ABG HCO3 ABG O2 Saturation ABG Base Excess POC ABG pCO2 ABG Hemoglobin ABG Oxyhemoglobin ABG Sodium ABG Chloride ABG Glucose Oxyhemoglobin Sodium 136 L Potassium Chloride 97.3 L Carbon Dioxide 31 H BUN 22 H Creatinine 0.5 L Glucose 160 H POC Glucose 127 H 136 H Lactic Acid Calcium Phosphorus Magnesium AST ALT Lactate Dehydrogenase Total Bilirubin Direct Bilirubin CK-MB (CK-2) C-Reactive Protein NT-Pro-B Natriuret Pep Total Protein Albumin Arterial Blood Glucose Urine WBC (Auto) Urine Creatinine 03/19/20 03/19/20 03/20/20 12:21 17:27 00:31 WBC RBC Hgb Hct MCHC RDW MCV MCH Lymph % (Auto) [place] % (Auto) [place] # Eos # Lymph # (Auto) [place] # (Auto) Eos # (Auto) Seg Neutrophils % Seg Neuts % (Manual) Baso # (Auto) Lymphocytes % (Manual) Monocytes % (Manual) Eosinophils % (Manual) Basophils % (Manual) Seg Neutrophils # Seg Neutrophils # Man Lymphocytes # (Manual) Monocytes # (Manual) Eosinophils # (Manual) Nucleated RBC % Basophils # (Manual) PT INR APTT Heparin Anti-Xa Level ABG pH POC ABG pO2 ABG pO2 ABG HCO3 ABG O2 Saturation ABG Base Excess POC ABG pCO2 ABG Hemoglobin ABG Oxyhemoglobin ABG Sodium ABG Chloride ABG Glucose Oxyhemoglobin Sodium Potassium Chloride Carbon Dioxide BUN Creatinine Glucose POC Glucose 147 H 152 H 132 H Lactic Acid Calcium Phosphorus Magnesium AST ALT Lactate Dehydrogenase Total Bilirubin Direct Bilirubin CK-MB (CK-2) C-Reactive Protein NT-Pro-B Natriuret Pep Total Protein Albumin Arterial Blood Glucose Urine WBC (Auto) Urine Creatinine 03/20/20 03/20/20 03/20/20 05:59 11:45 17:24 WBC RBC Hgb Hct MCHC RDW MCV MCH Lymph % (Auto) [place] % (Auto) [place] # Eos # Lymph # (Auto) [place] # (Auto) Eos # (Auto) Seg Neutrophils % Seg Neuts % (Manual) Baso # (Auto) Lymphocytes % (Manual) Monocytes % (Manual) Eosinophils % (Manual) Basophils % (Manual) Seg Neutrophils # Seg Neutrophils # Man Lymphocytes # (Manual) Monocytes # (Manual) Eosinophils # (Manual) Nucleated RBC % Basophils # (Manual) PT INR APTT Heparin Anti-Xa Level ABG pH POC ABG pO2 ABG pO2 ABG HCO3 ABG O2 Saturation ABG Base Excess POC ABG pCO2 ABG Hemoglobin ABG Oxyhemoglobin ABG Sodium ABG Chloride ABG Glucose Oxyhemoglobin Sodium Potassium Chloride Carbon Dioxide BUN Creatinine Glucose POC Glucose 146 H 142 H 107 H Lactic Acid Calcium Phosphorus Magnesium AST ALT Lactate Dehydrogenase Total Bilirubin Direct Bilirubin CK-MB (CK-2) C-Reactive Protein NT-Pro-B Natriuret Pep Total Protein Albumin Arterial Blood Glucose Urine WBC (Auto) Urine Creatinine 03/20/20 03/21/20 03/21/20 23:38 05:38 11:22 WBC RBC Hgb Hct MCHC RDW MCV MCH Lymph % (Auto) [place] % (Auto) [place] # Eos # Lymph # (Auto) [place] # (Auto) Eos # (Auto) Seg Neutrophils % Seg Neuts % (Manual) Baso # (Auto) Lymphocytes % (Manual) Monocytes % (Manual) Eosinophils % (Manual) Basophils % (Manual) Seg Neutrophils # Seg Neutrophils # Man Lymphocytes # (Manual) Monocytes # (Manual) Eosinophils # (Manual) Nucleated RBC % Basophils # (Manual) PT INR APTT Heparin Anti-Xa Level ABG pH POC ABG pO2 ABG pO2 ABG HCO3 ABG O2 Saturation ABG Base Excess POC ABG pCO2 ABG Hemoglobin ABG Oxyhemoglobin ABG Sodium ABG Chloride ABG Glucose Oxyhemoglobin Sodium Potassium Chloride Carbon Dioxide BUN Creatinine Glucose POC Glucose 115 H 133 H 137 H Lactic Acid Calcium Phosphorus Magnesium AST ALT Lactate Dehydrogenase Total Bilirubin Direct Bilirubin CK-MB (CK-2) C-Reactive Protein NT-Pro-B Natriuret Pep Total Protein Albumin Arterial Blood Glucose Urine WBC (Auto) Urine Creatinine Allied health notes reviewed: nursing
[2020-03-21] MEDS: DIGOXIN 0.125 MG TAB PO SCH (16:22)
[2020-03-21] MEDS: ACETAMINOPHEN 325 MG/10.15 ML ORAL LIQD UNIT DOSE FEEDTUBE PRN (17:57)
[2020-03-21] MEDS: TAMSULOSIN 0.4 MG CAP PO SCH (21:47)
[2020-03-21] MEDS: POLYETHYLENE GLYCOL 3350 17 GM POWDER PO SCH (21:47)
[2020-03-22] MEDS: INSULIN REGULAR, HUMAN 100 UNIT/ML 3ML VIAL SUB-Q SCH ×4 (00:16→18:05)
[2020-03-22] MEDS: ACETAMINOPHEN 325 MG/10.15 ML ORAL LIQD UNIT DOSE FEEDTUBE PRN ×3 (00:16→21:01)
[2020-03-22] MEDS: MIDODRINE 5 MG TAB PO SCH ×3 (07:26→15:42)
[2020-03-22] MEDS: GLYCOPYRROLATE 2 MG TAB PO SCH ×3 (07:26→21:00)
[2020-03-22 08:07] LABS: Basophils % (Auto) 0.3 % (0.0-1.8); Eosinophils # (Auto) 0.1 K/mm3 (0.0-0.4); Eosinophils % (Auto) 2.4 % (0.0-4.3); Hematocrit 30.7 % (35.5-45.6); Hemoglobin 9.7 gm/dl (11.8-15.2); Lymphocytes % (Auto) 32.8 % (13.4-35.0); Mean Corpuscular HGB Conc 32 % (32-34); Mean Corpuscular Volume 77 fl (84-94); Monocytes # (Auto) 0.5 K/mm3 (0.0-0.8); Platelet Count 166 K/mm3 (140-440); Red Blood Count 3.97 M/mm3 (3.65-5.03)
[2020-03-22 08:13] LABS: Red Cell Distribution Width 22.2 % (13.2-15.2)
[2020-03-22 08:15] LABS: BUN/Creatinine Ratio 38; Blood Urea Nitrogen 19 mg/dL (9-20); Hemolysis Index 0
[2020-03-22] MEDS: DOCUSATE SODIUM 100 MG/10 ML ORAL LIQD FEEDTUBE SCH ×2 (09:00→21:00)
[2020-03-22] MEDS: APIXABAN 5 MG TAB PO SCH ×2 (09:00→21:00)
[2020-03-22] MEDS: QUEtiapine 100 MG TAB PO SCH ×2 (09:00→21:00)
[2020-03-22] MEDS: LANSOPRAZOLE 30 MG SOLUTAB FEEDTUBE SCH (09:00)
[2020-03-22] MEDS: CLOPIDOGREL 75 MG TAB PO SCH (09:00)
[2020-03-22] MEDS: METOPROLOL TARTRATE 25 MG TAB FEEDTUBE SCH ×2 (09:01→21:02)
--- NOTE | 2020-03-22 13:00 | Progress Note ---
Assessment and Plan Assessment and plan: --Ischemic cardiomyopathy Cardiology is following, status post cardiac catheterization on 01/22/2020; Cor onary artery disease status post PCI and stent to the LAD Continue current cardiac medications --Acute on chronic hypoxemic respiratory failure; Patient has tracheostomy on vent Continue nebulizers, , trach care Wean off ventilator as tolerated Pulmonary critical following --Acute exacerbation of COPD; Patient is currently on ventilatory support Continue nebulizers --Left lower lobe PE; Continue Eliquis, ventilatory support --Acute right lower extremity DVT; Patient is on Eliquis --Bilateral multifocal pneumonia/community-acquired Completed antibiotics, improved --Severe sepsis/bilateral pneumonia: Completed antibiotics COVID-19 test; 11/24/2019; negative 11/26/2019; negative 12/29/2019: Negative --Paroxysmal atrial fibrillation; Now rate controlled, Stable on amiodarone and Eliquis --Acute on chronic combined systolic and diastolic congestive heart failure Ischemic cardiomyopathy left ventricular ejection fraction 40 to 45% --H/o CAD [[facility] 12/2018 in-stent restenosis] Patient is stable on current cardiac medications --Hypertensive emergency; present on admission Reasonable blood pressures, continue current antihypertensives As needed medications --History of alcohol abuse/alcohol withdrawal; Was on CIWA protocol, now stable --Oropharyngeal dysphagia; status post PEG placement Continue PEG feeds per protocol --History of partial small bowel obstruction; resolved Surgery evaluated. --Obesity; BMI 34.7 Patient needs weight reduction when medically stable --Severe protein calorie malnutrition/hypoalbuminemia Nutrition supplements, dietitian following, PEG feeds --DVT prophylaxis;Eliquis --Full CODE STATUS 03/19/2020. Continue current vent per pulmonary recommendations. Pressure support ventilation trials as tolerated. Continue trach care, secretion control and airway management. Mobility protocols for pressure ulcer prophylaxis. 03/20/2020. Rate better controlled on digoxin and metoprolol per cardiology. Patient currently off amiodarone due to elevated liver enzymes. Continue anticoagulation with Eliquis. IV metoprolol as needed. No statins for now secondary to elevated liver enzymes. Patient remains on AC mode ventilation rate 12, tidal volume 450, FiO2 30% and PEEP of 6. Cont. PSV as figueroa. Continue trach care, secretion control and airway management. Mobility protocols for pressure ulcer prophylaxis. Patient is uninsured and his only d/c option is to return home with family. 03/21/2020. Patient still with elevated heart rate but better on digoxin and metoprolol per cardiology. Patient currently off amiodarone due to elevated l iver enzymes. Continue anticoagulation with Eliquis. IV metoprolol as needed. No statins for now secondary to elevated liver enzymes. Patient remains on AC mode mechanical ventilation with rate 12, tidal volume 450, FiO2 30% and PEEP of 6. Continue PSV trials as tolerated. Continue trach care, secretion control and airway management. Mobility protocols for pressure ulcer prophylaxis. Patient is uninsured and his only d/c option is to return home with family. 03/22/2020; patient remains on ventilatory support, continue to wean as tolerated, trach care Awaiting LTAC placement, however patient has multiple social issues, mobility protocols blood pressure ulcers DVT prophylaxis, will continue current management The high probability of a clinically significant, sudden or life threatening deterioration of the [Respiratory, cardiovascular & neurological] system(s) required my full and direct attention, intervention and personal management. The aggregate critical care time was [34] minutes without overlap. Time includes spent on [x] Data Review and interpretation [x] Patient assessment and monitoring of vital signs [x] Documentation [x] Medication orders and management History Interval history: I have seen and examined the patient Patient tracheostomy on ventilatory support Vital signs noted Not in acute distress Hospitalist Physical - Constitutional Vitals: Temp Pulse Resp BP Pulse Ox 97.6 F 129 H 16 97/72 99 03/22/20 12:00 03/22/20 12:02 03/22/20 12:02 03/22/20 12:02 03/22/20 12:02 General appearance: Present: no acute distress, well-nourished, other (Tracheostomy on vent) - EENT Eyes: Present: PERRL, EOM intact ENT: other (Tracheostomy on vent) - Neck Neck: Present: supple, normal ROM - Respiratory Respiratory effort: normal Respiratory: bilateral: diminished, rhonchi, negative: rales, wheezing - Cardiovascular Rhythm: regular Heart Sounds: Present: S1 & S2 - Extremities Extremities: no ischemia, No edema - Abdominal General gastrointestinal: soft, non-tender, non-distended, normal bowel sounds - Integumentary Integumentary: Present: clear, warm - Psychiatric Psychiatric: other (Intubated on vent) - Neurologic Neurologic: other (On ventilatory support) HEART Score - HEART Score Troponin: Troponin T < 0.010 ng/mL (0.00-0.029) 01/19/20 01:35 Results - Labs CBC & Chem 7: 03/22/20 06:39 03/22/20 06:39 Labs: Laboratory Last Values WBC 6.0 K/mm3 (4.5-11.0) 03/22/20 06:39 RBC 3.97 M/mm3 (3.65-5.03) 03/22/20 06:39 Hgb 9.7 gm/dl (11.8-15.2) L 03/22/20 06:39 Hct 30.7 % (35.5-45.6) L 03/22/20 06:39 MCV 77 fl (84-94) L 03/22/20 06:39 MCH 25 pg (28-32) L 03/22/20 06:39 MCHC 32 % (32-34) 03/22/20 06:39 RDW 22.2 % (13.2-15.2) H 03/22/20 06:39 Plt Count 166 K/mm3 (140-440) 03/22/20 06:39 Lymph % (Auto) 32.8 % (13.4-35.0) 03/22/20 06:39 [place] % (Auto) 9.0 % (0.0-7.3) H 03/22/20 06:39 Eos % (Auto) 2.4 % (0.0-4.3) 03/22/20 06:39 Baso % (Auto) 0.3 % (0.0-1.8) 03/22/20 06:39 Lymph # (Auto) 2.0 K/mm3 (1.2-5.4) 03/22/20 06:39 [place] # (Auto) 0.5 K/mm3 (0.0-0.8) 03/22/20 06:39 Eos # (Auto) 0.1 K/mm3 (0.0-0.4) 03/22/20 06:39 Baso # (Auto) 0.0 K/mm3 (0.0-0.1) 03/22/20 06:39 Add Manual Diff Complete 02/15/20 06:59 Total Counted 100 02/15/20 06:59 Seg Neuts % (Manual) 58.0 % (40.0-70.0) 02/15/20 06:59 Band Neutrophils % 0 % 02/15/20 06:59 Seg Neutrophils % 55.5 % (40.0-70.0) 03/22/20 06:39 Lymphocytes % (Manual) 34.0 % (13.4-35.0) 02/15/20 06:59 Reactive Lymphs % (Man) 1.0 % 02/15/20 06:59 Monocytes % (Manual) 4.0 % (0.0-7.3) 02/15/20 06:59 Eosinophils % (Manual) 0 % (0.0-4.3) 02/15/20 06:59 Basophils % (Manual) 2.0 % (0.0-1.8) H 02/15/20 06:59 Metamyelocytes % 1.0 % 02/15/20 06:59 Myelocytes % 0 % 02/15/20 06:59 Promyelocytes % 0 % 02/15/20 06:59 Blast Cells % 0 % 02/15/20 06:59 Nucleated RBC % 1.0 % (0.0-0.9) H 02/15/20 06:59 Seg Neutrophils # Man 5.9 K/mm3 (1.8-7.7) 02/15/20 06:59 Seg Neutrophils # 3.4 K/mm3 (1.8-7.7) 03/22/20 06:39 Band Neutrophils # 0.0 K/mm3 02/15/20 06:59 Lymphocytes # (Manual) 3.5 K/mm3 (1.2-5.4) 02/15/20 06:59 Abs React Lymphs (Man) 0.1 K/mm3 02/15/20 06:59 Monocytes # (Manual) 0.4 K/mm3 (0.0-0.8) 02/15/20 06:59 Eosinophils # (Manual) 0.0 K/mm3 (0.0-0.4) 02/15/20 06:59 Basophils # (Manual) 0.2 K/mm3 (0.0-0.1) H 02/15/20 06:59 Metamyelocytes # 0.1 K/mm3 02/15/20 06:59 Myelocytes # 0.0 K/mm3 02/15/20 06:59 Promyelocytes # 0.0 K/mm3 02/15/20 06:59 Blast Cells # 0.0 K/mm3 02/15/20 06:59 WBC Morphology Not Reportable 02/15/20 06:59 Hypersegmented Neuts Not Reportable 02/15/20 06:59 Hyposegmented Neuts Not Reportable 02/15/20 06:59 Hypogranular Neuts Not Reportable 02/15/20 06:59 Smudge Cells Not Reportable 02/15/20 06:59 Toxic Granulation Not Reportable 02/15/20 06:59 Toxic Vacuolation Not Reportable 02/15/20 06:59 Dohle Bodies Not Reportable 02/15/20 06:59 Pelger-Huet Anomaly Not Reportable 02/15/20 06:59 Hector Rods Not Reportable 02/15/20 06:59 Platelet Estimate Consistent w auto 02/15/20 06:59 Clumped Platelets Not Reportable 02/15/20 06:59 Plt Clumps, EDTA Not Reportable 02/15/20 06:59 Large Platelets Not Reportable 02/15/20 06:59 Giant Platelets Not Reportable 02/15/20 06:59 Platelet Satelliting Not Reportable 02/15/20 06:59 Plt Morphology Comment Giant platelets 02/15/20 06:59 RBC Morphology Not Reportable 02/15/20 06:59 Dimorphic RBCs Not Reportable 02/15/20 06:59 Polychromasia Not Reportable 02/15/20 06:59 Hypochromasia 1+ 02/15/20 06:59 Poikilocytosis Few 02/15/20 06:59 Anisocytosis 1+ 02/15/20 06:59 Microcytosis Not Reportable 02/15/20 06:59 Macrocytosis Not Reportable 02/15/20 06:59 Spherocytes Not Reportable 02/15/20 06:59 Pappenheimer Bodies Not Reportable 02/15/20 06:59 Sickle Cells Not Reportable 02/15/20 06:59 Target Cells 1+ 02/15/20 06:59 Tear Drop Cells Few 02/15/20 06:59 Ovalocytes Not Reportable 02/15/20 06:59 Helmet Cells Not Reportable 02/15/20 06:59 [place] Bodies Not Reportable 02/15/20 06:59 [place] Rings Not Reportable 02/15/20 06:59 Oc Cells Not Reportable 02/15/20 06:59 Bite Cells Not Reportable 02/15/20 06:59 Crenated Cell Not Reportable 02/15/20 06:59 Elliptocytes Few 02/15/20 06:59 Acanthocytes (Spur) Not Reportable 02/15/20 06:59 Rouleaux Not Reportable 02/15/20 06:59 Hemoglobin C Crystals Not Reportable 02/15/20 06:59 Schistocytes Not Reportable 02/15/20 06:59 Malaria parasites Not Reportable 02/15/20 06:59 Clifford Bodies Not Reportable 02/15/20 06:59 Hem Pathologist Commnt No 02/15/20 06:59 PT 27.0 Sec. (12.2-14.9) H 02/07/20 15:03 INR 2.46 (0.87-1.13) H 02/07/20 15:03 APTT 31.5 Sec. (24.2-36.6) 01/22/20 09:58 Heparin Anti-Xa Level 1.34 U.I./ml (0.3-0.7) H 01/22/20 04:45 ABG pH 7.454 (7.320-7.450) H 03/12/20 04:45 POC ABG pCO2 45.6 mmHg (32.0-48.0) 03/12/20 04:45 ABG pCO2 47.8 mm Hg 02/20/20 06:45 POC ABG pO2 69.2 mmHg (83-108) L 03/12/20 04:45 ABG pO2 88.7 mm Hg (80.0-90.0) 02/20/20 06:45 POC ABG HCO3 31.3 03/12/20 04:45 ABG HCO3 33.3 mmol/L (20.0-26.0) H 02/20/20 06:45 ABG O2 Saturation 97.2 % (95.0-99.0) 02/20/20 06:45 ABG O2 Content 13.3 (0.0-44) 02/20/20 06:45 POC ABG Base Excess 6.5 03/12/20 04:45 ABG Base Excess 8.4 mmol/L (-2.0-3.0) H 02/20/20 06:45 ABG Hemoglobin 11.2 (12.0-17.5) L 03/12/20 04:45 ABG Oxyhemoglobin 84 (94-98) L 12/22/19 03:22 ABG Carboxyhemoglobin 2.9 % (0.0-5.0) 02/20/20 06:45 ABG Methemoglobin 0.4 % (0.0-1.5) 02/20/20 06:45 ABG Sodium 134.7 mmol/L (136.0-145.0) L 03/12/20 04:45 ABG Potassium 3.9 mmol/L (3.40-4.50) 03/12/20 04:45 ABG Chloride 98.0 mmol/L (98-107) 03/12/20 04:45 ABG Glucose 151 mg/dL (65-95) H 03/12/20 04:45 Oxyhemoglobin 94.1 % (95.0-99.0) L 02/20/20 06:45 Carboxyhemoglobin 0.7 (0.5-1.5) 12/22/19 03:22 FiO2 30 03/12/20 04:45 Sodium 139 mmol/L (137-145) 03/22/20 06:39 Potassium 3.8 mmol/L (3.6-5.0) 03/22/20 06:39 Chloride 100.9 mmol/L (98-107) 03/22/20 06:39 Carbon Dioxide 33 mmol/L (22-30) H 03/22/20 06:39 Anion Gap 9 mmol/L 03/22/20 06:39 BUN 19 mg/dL (9-20) 03/22/20 06:39 Creatinine 0.5 mg/dL (0.8-1.3) L 03/22/20 06:39 Estimated GFR > 60 ml/min 03/22/20 06:39 BUN/Creatinine Ratio 38 % 03/22/20 06:39 Glucose 147 mg/dL (75-100) H 03/22/20 06:39 POC Glucose 159 mg/dL (70-105) H 03/22/20 11:22 Lactic Acid 1.60 mmol/L (0.7-2.0) 02/03/20 12:49 Ferritin 84.4 ng/mL (30.0-300.0) 11/24/19 04:53 Calcium 9.0 mg/dL (8.4-10.2) 03/22/20 06:39 Phosphorus 4.10 mg/dL (2.5-4.5) 01/31/20 19:24 Magnesium 2.40 mg/dL (1.7-2.3) H 02/10/20 07:40 Total Bilirubin 0.90 mg/dL (0.1-1.2) 03/18/20 15:34 Direct Bilirubin 0.9 mg/dL (0-0.2) H 02/08/20 19:00 Indirect Bilirubin 0.4 mg/dL 02/08/20 19:00 Total Creatine Kinase 141 units/L (55-170) 11/24/19 02:53 CK-MB (CK-2) 4.3 ng/mL (0.0-4.0) H 11/24/19 02:53 AST 23 units/L (5-40) 03/18/20 15:34 CK-MB (CK-2) Rel Index 3.0 (0-4) 11/24/19 02:53 ALT 22 units/L (7-56) 03/18/20 15:34 Alkaline Phosphatase 96 units/L (35-129) 03/18/20 15:34 C-Reactive Protein 8.50 mg/dL (0.00-1.30) H 12/01/19 12:16 Ammonia 35.0 umol/L (25-60) 02/03/20 12:49 Lactate Dehydrogenase 228 units/L (91-180) H 12/19/19 04:45 Troponin T < 0.010 ng/mL (0.00-0.029) 01/19/20 01:35 NT-Pro-B Natriuret Pep 3866 pg/mL (0-900) H 01/01/20 10:40 Total Protein 6.2 g/dL (6.3-8.2) L 03/18/20 15:34 Albumin 2.8 g/dL (3.9-5) L 03/18/20 15:34 Albumin/Globulin Ratio 0.8 % 03/18/20 15:34 Procalcitonin 0.44 ng/mL (<0.15) 02/03/20 12:49 Arterial Blood Glucose 151 mg/dL (65-95) H 03/12/20 04:45 Arterial Blood Ionized Calcium 4.8 mg/dL (4.6-5.3) 03/12/20 04:45 Urine Color Cecy (Yellow) 02/26/20 07:50 Urine Turbidity Clear (Clear) 02/26/20 07:50 Urine pH 5.0 (5.0-7.0) 02/26/20 07:50 Ur Specific [place] 1.025 (1.003-1.030) 02/26/20 07:50 Urine Protein 30 mg/dl mg/dL (Negative) 02/26/20 07:50 Urine Glucose (UA) Neg mg/dL (Negative) 02/26/20 07:50 Urine Ketones Neg mg/dL (Negative) 02/26/20 07:50 Urine Blood Sm (Negative) 02/26/20 07:50 Urine Nitrite Neg (Negative) 02/26/20 07:50 Urine Bilirubin Neg (Negative) 02/26/20 07:50 Urine Urobilinogen 4.0 mg/dL (<2.0) 02/26/20 07:50 Ur Leukocyte Esterase Lg (Negative) 02/26/20 07:50 Urine WBC (Auto) > 182.0 /HPF (0.0-6.0) H 02/26/20 07:50 Urine RBC (Auto) 84.0 /HPF (0.0-6.0) 02/26/20 07:50 U Epithel Cells (Auto) 2.0 /HPF (0-13.0) 12/31/19 18:04 Urine Bacteria (Auto) 4+ /HPF (Negative) 02/26/20 07:50 Urine WBC Clumps 2+ /HPF 02/26/20 07:50 Urine Mucus 1+ /HPF 02/26/20 07:50 Urine Creatinine 57.4 mg/dL (0.1-20.0) H 01/31/20 Unknown Urine Sodium 59 mmol/L 01/31/20 Unknown Vancomycin Trough 14.2 ug/mL (5.0-20.0) 12/13/19 15:01 Digoxin 0.8 ng/mL (0.9-2.0) L 03/22/20 06:39 Coronavirus (PCR) Negative (Negative) 12/29/19 10:07 Hepatitis A IgM Ab Non-reactive (NonReactive) 02/05/20 06:37 Hep Bs Antigen Non-reactive (Negative) 02/05/20 06:37 Hep B Core IgM Ab Non-reactive (NonReactive) 02/05/20 06:37 Hepatitis C Antibody Non-reactive (NonReactive) 02/05/20 06:37 Blood Type O POSITIVE 01/21/20 13:00 Antibody Screen Negative 01/21/20 13:00 - Diagnostic Impressions Diagnostic Impressions: Echocardiogram 11/29/19 07:37 Transthoracic Echocardiogram Indication: CHF BP: 116/72 HR: 33 Conclusions *The study is technically limited due to poor acoustic windows. *Global left ventricular systolic function is normal. *The estimated ejection fraction is 50-55%. *Mild concentric left ventricular hypertrophy is observed. *There is trace of mitral regurgitation. *There is mild tricuspid regurgitation. Findings Procedure Info: The study quality is poor. The study is technically limited due to poor acoustic windows. The study is technically limited due to patient body habitus. Left Ventricle: The left ventricular chamber size is normal. Mild concentric left ventricular hypertrophy is observed. Global left ventricular systolic function is normal. The estimated ejection fraction is 50-55%. Left Atrium: The left atrial chamber size is normal. Right Ventricle: The right ventricular cavity size is normal. Right Atrium: The right atrial cavity size is normal. Aortic Valve: The aortic valve leaflets are moderately thickened. There is trace of aortic regurgitation. There is no evidence of aortic stenosis. Mitral Valve: The mitral valve leaflets are mildly thickened. There is trace of mitral regurgitation. There is no evidence of mitral stenosis. Tricuspid Valve: There is mild tricuspid regurgitation. No pulmonary hypertension is noted. Pulmonic Valve: There is trace pulmonic regurgitation. Pericardium: There is no pericardial effusion. Aorta: There is no dilatation of the aortic root. Venous: The inferior vena cava appears normal in size. Contrast: Definity was used to optimize study. Intravenous contrast was used to enhance endocardial border definition. Measurements Chambers 2D Name Value Normal Range Ao root diameter (2D) 3.4 cm (2 - 3.7) Aortic Valve Name Value Normal Range AV Vmax 0.98 m/sec - AV VTI 16.76 cm - AV peak gradient 3.83 mmHg - AV mean gradient 2.57 mmHg - LVOT diameter 3.11 cm - LVOT Vmax 0.68 m/sec - LVOT VTI 11.52 cm - LVOT peak gradient 1.84 mmHg - LVOT mean gradient 1.27 mmHg - SV LVOT 87.31 ml - MALOU (continuity Vmax) 5.24 cm2 - MALOU (continuity VTI) 5.21 cm2 - Tricuspid Valve Name Value Normal Range IVC diameter 2.24 cm (1.2 - 2.3) Hoffman/IV: Voiding Method Indwelling Catheter IV Catheter Type [Left INT / Saline Lock Antecubital] IV Catheter Type [Right INT / Saline Lock Forearm] IV Catheter Type [Right Hand] Peripheral IV IV Catheter Type [Right Upper INT / Saline Lock arm] IV Catheter Type [Left Upper Mid-line arm] IV Catheter Type [Left Forearm Peripheral IV ] IV Catheter Type [Left Hand] Peripheral IV IV Catheter Type [Left Wrist] INT / Saline Lock IV Catheter Type [Right Peripheral IV Antecubital] Active Medications - Current Medications Current Medications: Generic Name Dose Route Start Last Admin Trade Name Freq PRN Reason Stop Dose Admin Acetaminophen 650 mg 03/12/20 04:29 03/22/20 06:01 Acetaminophen 325 Mg/10.15 Ml Oral Liqd Unit Dose FEEDTUBE 650 mg Q6H PRN Administration Pain, Mild (1-3) Lipase/Protease/Amylase 1 each 01/09/20 12:01 03/18/20 11:09 Lipase 10,500/Protease 25,000/Amylase 43,750 (Units) Dr Lauren FEEDTUBE 1 each PRN PRN Administration For Clogged Feeding Tube Apixaban 5 mg 01/22/20 22:00 03/22/20 09:00 Apixaban 5 Mg Tab PO 5 mg Q12HR CAR Administration Protocol Atorvastatin Calcium 40 mg 01/20/20 22:00 03/21/20 21:47 Atorvastatin 40 Mg Tab PO 40 mg QHS CAR Administration Clopidogrel Bisulfate 75 mg 01/21/20 06:00 03/22/20 09:00 Clopidogrel 75 Mg Tab PO 75 mg QDAY CAR Administration Dextrose 50 ml 01/31/20 18:51 02/05/20 00:56 D50w (25gm) Syringe IV 50 ml Q30MIN PRN Administration Hypoglycemia Protocol Digoxin 0.125 mg 02/25/20 17:00 03/21/20 16:22 Lanoxin PO 0.125 mg DAILY@1700 CAR Administration Docusate Sodium 100 mg 02/22/20 10:00 03/22/20 09:00 Docusate Sodium 100 Mg/10 Ml Oral Liqd FEEDTUBE 100 mg BID CAR Administration Glycopyrrolate 2 mg 02/24/20 21:00 03/22/20 07:26 Glycopyrrolate PO 2 mg TID CAR Administration Haloperidol Lactate 5 mg 02/10/20 14:20 03/19/20 23:26 Haloperidol Lactate 5 Mg/1 Ml Inj IV 5 mg Q6H PRN Administration Agitation Hydrophilic Ointment 1 applic 01/17/20 15:26 02/24/20 23:20 Lip Therapy Vaseline TP 1 applic DIRECT PRN Administration Dry Lips Insulin Human Regular 0 unit 02/01/20 18:00 03/22/20 11:46 Humulin R SUB-Q 1 unit Q6H CAR Administration Protocol Lansoprazole 30 mg 02/05/20 16:00 03/22/20 09:00 Lansoprazole 30 Mg Solutab FEEDTUBE 30 mg QDAY [facility] Administration Metoprolol Tartrate 5 mg 01/11/20 08:00 03/18/20 16:52 Metoprolol Tartrate 5 Mg/5 Ml Inj IV 5 mg Q6H PRN Administration SEE INSTRUCTIONS Metoprolol Tartrate 12.5 mg 02/28/20 12:00 03/22/20 09:01 Metoprolol FEEDTUBE Not Given BID [facility] Midodrine 15 mg 02/04/20 16:00 03/22/20 11:46 Midodrine 5 Mg Tab PO 15 mg TID@0800,1200,1600 [facility] Administration Morphine Sulfate 2 mg 01/06/20 15:41 03/19/20 13:20 Morphine 2 Mg/1 Ml Inj IV 2 mg Q4H PRN Administration Pain, Moderate (4-6) Multi-Ingred Cream/Lotion/Oil/Oint 1 applic 02/01/20 15:52 Artificial Tears Ophth Oint OU Q4HR PRN Dry Eye(s) Nitroglycerin 0.4 mg 01/19/20 21:09 01/20/20 03:03 Nitroglycerin 0.4 Mg Tab Subl SL 0.4 mg .Q5MIN PRN Administration Chest Pain Ondansetron HCl 4 mg 01/05/20 14:37 03/18/20 11:09 Ondansetron 4 Mg/2 Ml Inj IV 4 mg Q8H PRN Administration Nausea And Vomiting Polyethylene Glycol 17 gm 12/04/19 22:00 03/21/20 21:47 Miralax 3350 PO 17 gm QHS CAR Administration Quetiapine Fumarate 300 mg 01/13/20 22:00 03/22/20 09:00 Quetiapine 100 Mg Tab PO 300 mg BID CAR Administration Simple Syrup 15 ml 01/09/20 12:01 Simple Syrup 15 Ml FEEDTUBE PRN PRN Hypoglycemia Simple Syrup 30 ml 01/09/20 12:01 Simple Syrup 15 Ml FEEDTUBE PRN PRN Hypoglycemia Sodium Bicarbonate 325 mg 01/09/20 12:01 03/07/20 12:56 Sodium Bicarbonate 325 Mg Tab FEEDTUBE 325 mg PRN PRN Administration For Clogged Feeding Tube Sodium Chloride 10 ml 11/24/19 10:00 03/22/20 09:02 Sodium Chloride 0.9% 10 Ml Flush Syringe IV 10 ml BID CAR Administration Tamsulosin HCl 0.8 mg 12/20/19 22:00 03/21/20 21:47 Tamsulosin 0.4 Mg Cap PO 0.8 mg QHS CAR Administration Nutrition/Malnutrition Assess - Dietary Evaluation Nutrition/Malnutrition Findings: Nutrition Notes Start: 11/24/19 12:22 Freq: Status: Active Protocol: Document 03/22/20 11:05 LM (Rec: 03/22/20 11:10 LM [id number]) Nutrition Notes Initial or Follow up Reassessment Current Diagnosis Coronary Artery Disease,Heart Failure,Respiratory Failure, Stroke,Hyperlipidemia Other Pertinent Diagnosis pneumonia Current Diet Osmolite 1.5 at 65ml/hr Labs/Tests Reviewed Pertinent Medications Humulin Height 6 ft 2 in Weight 130.5 kg [place] Body Weight (kg) 86.36 BMI 36.9 Weight change and time frame Wt change noted. Pt with edema . Weight Status Obese Subjective/Other Information TF running at 55ml/hr. Per RN pt tolerates TF at lower rate and pt vomits when rate is at 65ml/hr. Percent of energy/protein needs met: 95%/48% Burn Absent Trauma Absent GI Symptoms None Current % PO Negligible Minimum of two criteria Yes Muscle Mass Mild Depletion (non-severe) Fluid Accumulation Mild (non-severe) Reduced Buggy Driver Strength Measurably Reduced (severe) #2 Nutrition Diagnosis Malnutrition Diagnosis Progress(for reassessment Continues documentation) #1 Nutrition Diagnosis Inadequate oral intake Diagnosis Progress(for reassessment Continues documentation) Is patient on ventilator? Yes Is Patient Ambulatory and/or Out of Bed No REE-(Carter-St. Jeor-confined to bed) 2608.188 Kcal/Kg value to use for calculation 16 Approximate Energy Requirements Using 2088 kcal/Kg Calculation Used for Recommendations Kcal/kg Additional Notes Protein needs are 173g ( greater than 2g/kg IBW) Fluid needs are 1 ml/kcal Nutrition Intervention Change Diet Order: Continue TF via PEG Nutrition Support: Osmolite 1.5 at 65 ml/hr. Flush 200 ml q4h. Kcal 2,340 Protein (gm) 98 Fluid (mL) 1,189 Goal #1 Meet at least 75% of pt's energy and protein needs via TF Goal #2 TF tolerance Anticipated Discharge Needs: unable to determine at this time Follow-Up By: 03/28/20 Additional Comments F/U for TF tolerance
--- NOTE | 2020-03-22 13:33 | Progress Note ---
Assessment and Plan - Patient Problems (1) Paroxysmal atrial fibrillation Current Visit: Yes Status: Acute Plan to address problem: Continue current management of atrial fibrillation on a rate control strategy and oral anticoagulation, stable cardiac status. Subjective Date of service: 03/22/20 Principal diagnosis: Ac hypoxemic resp failure; Pneumonia; PUI COVID-19; CHF; COPD; HTN Interval history: No new cardiac complaints, patient seen atrial fibrillation with well-controlled ventricular rate. Objective Vital Signs Temp Pulse Pulse Resp Resp BP Pulse Ox 03/22/20 13:00 117 H 15 97/75 98 03/22/20 12:02 129 H 16 97/72 99 03/22/20 12:01 114 H 24 97/72 100 03/22/20 12:00 97.6 F 116 H 16 21 100 03/22/20 11:01 120 H 13 103/74 100 03/22/20 10:00 133 H 28 H 113/69 99 03/22/20 09:01 116 H 22 108/77 96 03/22/20 08:00 97.4 F L 129 H 9 L 15 106/77 97 03/22/20 07:32 129 H 11 L 114/69 99 03/22/20 07:00 130 H 20 114/69 97 03/22/20 06:01 20 03/22/20 06:00 128 H 20 101/78 100 03/22/20 05:00 120 H 17 94/74 99 03/22/20 04:07 126 H 95/72 99 03/22/20 04:00 119 H 20 95/72 100 03/22/20 03:49 97.3 F L 03/22/20 03:48 18 03/22/20 03:15 123 H 03/22/20 03:00 130 H 14 91/68 100 03/22/20 02:00 122 H 17 95/73 99 03/22/20 01:16 20 03/22/20 01:01 126 H 17 99/76 99 03/22/20 00:33 124 H 98/76 100 03/22/20 00:16 16 03/22/20 00:14 133 H 03/22/20 00:01 129 H 20 99/76 99 03/22/20 00:00 98.4 F 16 20 100 03/21/20 23:01 113 H 22 94/68 98 03/21/20 22:29 03/21/20 22:00 110 H 14 99/73 100 03/21/20 21:47 122 H 95/69 03/21/20 21:00 114 H 17 95/69 99 03/21/20 20:02 99 03/21/20 20:01 121 H 14 88/68 99 03/21/20 20:00 97.6 F 03/21/20 19:37 116 H 91/66 98 03/21/20 19:25 126 H 03/21/20 19:15 20 03/21/20 19:01 137 H 15 91/66 99 03/21/20 18:07 117 H 16 90/69 99 03/21/20 18:00 125 H 16 90/69 99 03/21/20 17:57 19 03/21/20 17:02 112 H 101/67 100 03/21/20 17:00 134 H 25 H 95/68 99 03/21/20 16:22 123 H 95/68 03/21/20 16:00 97.7 F 111 H 117 H 20 94/77 100 03/21/20 15:00 132 H 24 94/77 100 03/21/20 14:00 107 H 17 87/53 100 Pulse Ox 03/22/20 13:00 03/22/20 12:02 03/22/20 12:01 03/22/20 12:00 03/22/20 11:01 03/22/20 10:00 03/22/20 09:01 03/22/20 08:00 03/22/20 07:32 03/22/20 07:00 03/22/20 06:01 03/22/20 06:00 03/22/20 05:00 03/22/20 04:07 03/22/20 04:00 03/22/20 03:49 03/22/20 03:48 03/22/20 03:15 03/22/20 03:00 03/22/20 02:00 03/22/20 01:16 03/22/20 01:01 03/22/20 00:33 03/22/20 00:16 03/22/20 00:14 03/22/20 00:01 03/22/20 00:00 03/21/20 23:01 03/21/20 22:29 98 03/21/20 22:00 03/21/20 21:47 03/21/20 21:00 03/21/20 20:02 03/21/20 20:01 03/21/20 20:00 03/21/20 19:37 03/21/20 19:25 03/21/20 19:15 03/21/20 19:01 03/21/20 18:07 03/21/20 18:00 03/21/20 17:57 03/21/20 17:02 03/21/20 17:00 03/21/20 16:22 03/21/20 16:00 03/21/20 15:00 03/21/20 14:00 - Physical Examination General: Other (s/p trach) HEENT: Positive: PERRL Neck: Positive: neck supple, Other (s/p trach) Cardiac: Positive: irregularly irregular Lungs: Positive: Decreased Breath Sounds Neuro: Positive: Weakness Abdomen: Positive: Soft Skin: Positive: Clear Extremities: Absent: edema - Labs and Meds CBC 03/22/20 Range/Units 06:39 WBC 6.0 (4.5-11.0) K/mm3 RBC 3.97 (3.65-5.03) M/mm3 Hgb 9.7 L (11.8-15.2) gm/dl Hct 30.7 L (35.5-45.6) % Plt Count 166 (140-440) K/mm3 Lymph # (Auto) 2.0 (1.2-5.4) K/mm3 [place] # (Auto) 0.5 (0.0-0.8) K/mm3 Eos # (Auto) 0.1 (0.0-0.4) K/mm3 Baso # (Auto) 0.0 (0.0-0.1) K/mm3 Comprehensive Metabolic Panel 03/22/20 Range/Units 06:39 Sodium 139 (137-145) mmol/L Potassium 3.8 (3.6-5.0) mmol/L Chloride 100.9 (98-107) mmol/L Carbon Dioxide 33 H (22-30) mmol/L BUN 19 (9-20) mg/dL Creatinine 0.5 L (0.8-1.3) mg/dL Glucose 147 H (75-100) mg/dL Calcium 9.0 (8.4-10.2) mg/dL - Allied health notes Allied health notes reviewed: nursing
--- NOTE | 2020-03-22 15:00 | Progress Note ---
Assessment and Plan Acute hypoxemic respiratory failure Bilateral pneumonia, community acquired. Acute LLL branch P.E. Acute DVT Person under investigation for COVID-19 infection. Acute congestive heart failure exacerbation. History of cerebrovascular accident. Acute chronic obstructive pulmonary disease exacerbation. Hypertension and hypertensive urgency at presentation. History of arthritis. Leukocytosis. Lactic acidosis. Oropharyngeal dysphagia - prn CXR's & ABG's at this point - prn diuresis - remains a difficult wean, continue care as below; - continue daily SAT's and SBT assessment as tolerated - continue to wean oxygen for O2 sat's > 92% - continue bronchodilators with routine trach care and pulmonary hygiene per RT - VAP bundle addressed (Aspiration precautions, HOB >40) - continue to wean per pulmonary driven protocols - continue to rest on AC qhs - continue Flomax - antiinfective's per ID rec's - Midodrine for BP support - prn mucomyst nebs re: secretions - continue full anticoagulation with Apixaban - continue seroquel for anxiolysis / delirium - COVID isolation per facility protocol - prn diuresis while following electrolytes / I's & O's - sedation target is RASS 0 to -1 - continue prn analgesia per CPOT score - follow clinically re: fever curves / trend WBC - Avoid delirium (no benzodiazepines if they can be avoided) - Maintain sleep-wake cycle - enteral nutrition at goal rate as tolerated - continue accucheck's with glycemic control per SSI for target blood glucose goal of 140-180 mg/dL while critically ill; Avoid hypoglycemia - for VTE he is onEliquis - continue stress ulcer prophylaxis with Famotidine - continue mobility protocols for pressure ulcer prophylaxis - continue fall precautions - continue wound care management per RN / WCT - Supportive transfusions to keep HgB>7g/dL - CXR's and ABG's prn - Continue to monitor neurologic function - Continue chronic home medications - Continue all supportive care ........ re-evaluate in am & prn CONDITION: CRITICAL PROGNOSIS: GUARDED CODE STATUS: FULL CODE The high probability of a clinically significant, sudden or life threatening deterioration of the [Respiratory, cardiovascular & neurological] system(s) required my full and direct attention, intervention and personal management. The aggregate critical care time was [31] minutes without overlap. Time includes spent on [x] Data Review and interpretation [x] Patient assessment and monitoring of vital signs [x] Documentation [x] Medication orders and management Subjective Date of service: 03/22/20 Principal diagnosis: Ac hypoxemic resp failure; Pneumonia; PUI COVID-19; CHF; COPD; HTN Interval history: Patient is seen today for: Acute hypoxemic respiratory failure; [place]. Pneumonia (CAP); PUI COVID-19 infection; AE-CHF; AE-COPD; H/O CVA; HTN Seen and examined at bedside; 24 hour events reviewed; nursing and respiratory care staff consulted; no adverse overnight events reported to me; resting peacefully in bed; remains on MVS; weaning tenuously still; did not tolerate PSV trial well today Objective Vital Signs - 12hr 03/22/20 03/22/20 03/22/20 03:00 03:15 03:48 Temperature Pulse Rate 130 H 123 H Respiratory 14 Rate Respiratory 18 Rate [ Generalized] Blood Pressure 91/68 O2 Sat by Pulse 100 Oximetry 03/22/20 03/22/20 03/22/20 03:49 04:00 04:07 Temperature 97.3 F L Pulse Rate 119 H 126 H Respiratory 20 Rate Respiratory Rate [ Generalized] Blood Pressure 95/72 95/72 O2 Sat by Pulse 100 99 Oximetry 03/22/20 03/22/20 03/22/20 05:00 06:00 06:01 Temperature Pulse Rate 120 H 128 H Respiratory 17 20 20 Rate Respiratory Rate [ Generalized] Blood Pressure 94/74 101/78 O2 Sat by Pulse 99 100 Oximetry 03/22/20 03/22/20 03/22/20 07:00 07:32 08:00 Temperature 97.4 F L Pulse Rate 130 H 129 H 129 H Respiratory 20 11 L 9 L Rate Respiratory 15 Rate [ Generalized] Blood Pressure 114/69 114/69 106/77 O2 Sat by Pulse 97 99 97 Oximetry 03/22/20 03/22/20 03/22/20 09:01 10:00 11:01 Temperature Pulse Rate 116 H 133 H 120 H Respiratory 22 28 H 13 Rate Respiratory Rate [ Generalized] Blood Pressure 108/77 113/69 103/74 O2 Sat by Pulse 96 99 100 Oximetry 03/22/20 03/22/20 03/22/20 12:00 12:01 12:02 Temperature 97.6 F Pulse Rate 116 H 114 H 129 H Respiratory 16 24 16 Rate Respiratory 21 Rate [ Generalized] Blood Pressure 97/72 97/72 O2 Sat by Pulse 100 100 99 Oximetry 03/22/20 03/22/20 13:00 14:00 Temperature Pulse Rate 117 H 120 H Respiratory 15 25 H Rate Respiratory Rate [ Generalized] Blood Pressure 97/75 104/80 O2 Sat by Pulse 98 99 Oximetry Constitutional: no acute distress, other (elderly and obese male, normocephalic with mildly increased respiratory effort at rest) Eyes: non-icteric ENT: oropharynx moist, other (+ midline tracheostomy) Neck: supple, no JVD Effort: mildly labored Ascultation: Bilateral: diminished breath sounds, rhonchi (scant), other (tracheal secretions ) Percussion: Bilateral: not dull Cardiovascular: irregular rhythm Gastrointestinal: normoactive bowel sounds, soft, non-tender, non-distended (protuberant), other (protuberant; PEG in place) Integumentary: normal Extremities: no cyanosis, pulses normal, no ischemia or petechiae, edema (2+) Neurologic: non-focal exam (grossly; moves extremities), pupils equal and round, unable to assess Psychiatric: mood appropriate, affect normal CBC and BMP: 03/22/20 06:39 03/22/20 06:39 ABG, PT/INR, D-dimer: ABG ABG pH 7.454 (7.320-7.450) H 03/12/20 04:45 POC ABG pCO2 45.6 mmHg (32.0-48.0) 03/12/20 04:45 ABG pCO2 47.8 mm Hg 02/20/20 06:45 POC ABG pO2 69.2 mmHg (83-108) L 03/12/20 04:45 ABG pO2 88.7 mm Hg (80.0-90.0) 02/20/20 06:45 POC ABG HCO3 31.3 03/12/20 04:45 ABG O2 Saturation 97.2 % (95.0-99.0) 02/20/20 06:45 PT/INR, D-dimer PT 27.0 Sec. (12.2-14.9) H 02/07/20 15:03 INR 2.46 (0.87-1.13) H 02/07/20 15:03 Abnormal lab findings: Abnormal Labs 11/24/19 11/24/1920 02:53 02:53 03:45 WBC 14.3 H RBC Hgb Hct MCHC RDW 17.2 H MCV MCH Lymph % (Auto) [place] % (Auto) [place] # Eos # Lymph # (Auto) [place] # (Auto) Eos # (Auto) Seg Neutrophils % Seg Neuts % (Manual) Baso # (Auto) Lymphocytes % (Manual) Monocytes % (Manual) Eosinophils % (Manual) Basophils % (Manual) Seg Neutrophils # Seg Neutrophils # Man 8.3 H Lymphocytes # (Manual) Monocytes # (Manual) 0.9 H Eosinophils # (Manual) Nucleated RBC % Basophils # (Manual) PT INR APTT Heparin Anti-Xa Level ABG pH 7.313 L POC ABG pO2 ABG pO2 102.8 H ABG HCO3 ABG O2 Saturation ABG Base Excess -2.9 L POC ABG pCO2 ABG Hemoglobin ABG Oxyhemoglobin ABG Sodium ABG Chloride ABG Glucose Oxyhemoglobin 93.9 L Sodium Potassium Chloride Carbon Dioxide BUN Creatinine Glucose 195 H POC Glucose Lactic Acid Calcium Phosphorus Magnesium AST ALT Lactate Dehydrogenase Total Bilirubin Direct Bilirubin CK-MB (CK-2) 4.3 H C-Reactive Protein NT-Pro-B Natriuret Pep 1181 H Total Protein Albumin Arterial Blood Glucose Urine WBC (Auto) Urine Creatinine Digoxin 11/24/19 11/24/19 11/24/19 04:53 04:53 10:37 WBC RBC Hgb Hct MCHC RDW MCV MCH Lymph % (Auto) [place] % (Auto) [place] # Eos # Lymph # (Auto) [place] # (Auto) Eos # (Auto) Seg Neutrophils % Seg Neuts % (Manual) Baso # (Auto) Lymphocytes % (Manual) Monocytes % (Manual) Eosinophils % (Manual) Basophils % (Manual) Seg Neutrophils # Seg Neutrophils # Man Lymphocytes # (Manual) Monocytes # (Manual) Eosinophils # (Manual) Nucleated RBC % Basophils # (Manual) PT INR APTT Heparin Anti-Xa Level ABG pH POC ABG pO2 ABG pO2 ABG HCO3 ABG O2 Saturation ABG Base Excess POC ABG pCO2 ABG Hemoglobin ABG Oxyhemoglobin ABG Sodium ABG Chloride ABG Glucose Oxyhemoglobin Sodium Potassium Chloride Carbon Dioxide BUN Creatinine Glucose 162 H POC Glucose Lactic Acid 2.40 H* 2.50 H* Calcium Phosphorus Magnesium AST ALT Lactate Dehydrogenase 240 H Total Bilirubin Direct Bilirubin CK-MB (CK-2) C-Reactive Protein NT-Pro-B Natriuret Pep Total Protein Albumin Arterial Blood Glucose Urine WBC (Auto) Urine Creatinine Digoxin 11/24/19 11/24/19 11/24/19 12:21 14:50 19:54 WBC RBC Hgb Hct MCHC RDW MCV MCH Lymph % (Auto) [place] % (Auto) [place] # Eos # Lymph # (Auto) [place] # (Auto) Eos # (Auto) Seg Neutrophils % Seg Neuts % (Manual) Baso # (Auto) Lymphocytes % (Manual) Monocytes % (Manual) Eosinophils % (Manual) Basophils % (Manual) Seg Neutrophils # Seg Neutrophils # Man Lymphocytes # (Manual) Monocytes # (Manual) Eosinophils # (Manual) Nucleated RBC % Basophils # (Manual) PT INR APTT Heparin Anti-Xa Level ABG pH POC ABG pO2 ABG pO2 ABG HCO3 ABG O2 Saturation ABG Base Excess POC ABG pCO2 ABG Hemoglobin ABG Oxyhemoglobin ABG Sodium ABG Chloride ABG Glucose Oxyhemoglobin Sodium Potassium Chloride Carbon Dioxide BUN Creatinine Glucose POC Glucose 145 H 143 H 124 H Lactic Acid Calcium Phosphorus Magnesium AST ALT Lactate Dehydrogenase Total Bilirubin Direct Bilirubin CK-MB (CK-2) C-Reactive Protein NT-Pro-B Natriuret Pep Total Protein Albumin Arterial Blood Glucose Urine WBC (Auto) Urine Creatinine Digoxin 11/25/19 11/25/19 11/25/19 00:18 03:18 05:11 WBC 13.7 H RBC Hgb Hct MCHC RDW 17.1 H MCV MCH Lymph % (Auto) 10.8 L [place] % (Auto) 8.7 H [place] # 1.2 H Eos # Lymph # (Auto) [place] # (Auto) Eos # (Auto) Seg Neutrophils % 80.2 H Seg Neuts % (Manual) Baso # (Auto) Lymphocytes % (Manual) Monocytes % (Manual) Eosinophils % (Manual) Basophils % (Manual) Seg Neutrophils # 11.0 H Seg Neutrophils # Man Lymphocytes # (Manual) Monocytes # (Manual) Eosinophils # (Manual) Nucleated RBC % Basophils # (Manual) PT INR APTT Heparin Anti-Xa Level ABG pH 7.333 L POC ABG pO2 ABG pO2 61.2 L ABG HCO3 ABG O2 Saturation 90.2 L ABG Base Excess POC ABG pCO2 ABG Hemoglobin 13.7 L ABG Oxyhemoglobin ABG Sodium ABG Chloride ABG Glucose Oxyhemoglobin 88.2 L Sodium Potassium Chloride Carbon Dioxide BUN Creatinine Glucose POC Glucose 109 H Lactic Acid Calcium Phosphorus Magnesium AST ALT Lactate Dehydrogenase Total Bilirubin Direct Bilirubin CK-MB (CK-2) C-Reactive Protein NT-Pro-B Natriuret Pep Total Protein Albumin Arterial Blood Glucose Urine WBC (Auto) Urine Creatinine Digoxin 11/25/19 11/25/19 11/26/19 05:11 11:40 03:12 WBC RBC Hgb Hct MCHC RDW MCV MCH Lymph % (Auto) [place] % (Auto) [place] # Eos # Lymph # (Auto) [place] # (Auto) Eos # (Auto) Seg Neutrophils % Seg Neuts % (Manual) Baso # (Auto) Lymphocytes % (Manual) Monocytes % (Manual) Eosinophils % (Manual) Basophils % (Manual) Seg Neutrophils # Seg Neutrophils # Man Lymphocytes # (Manual) Monocytes # (Manual) Eosinophils # (Manual) Nucleated RBC % Basophils # (Manual) PT INR APTT Heparin Anti-Xa Level ABG pH POC ABG pO2 ABG pO2 155.1 H ABG HCO3 27.8 H ABG O2 Saturation ABG Base Excess POC ABG pCO2 ABG Hemoglobin 12.2 L ABG Oxyhemoglobin ABG Sodium ABG Chloride ABG Glucose Oxyhemoglobin Sodium Potassium Chloride Carbon Dioxide BUN 23 H Creatinine Glucose 110 H POC Glucose 108 H Lactic Acid Calcium Phosphorus Magnesium AST ALT Lactate Dehydrogenase Total Bilirubin Direct Bilirubin CK-MB (CK-2) C-Reactive Protein NT-Pro-B Natriuret Pep Total Protein Albumin Arterial Blood Glucose Urine WBC (Auto) Urine Creatinine Digoxin 11/26/19 11/26/19 11/26/19 06:17 10:43 10:43 WBC 11.4 H RBC Hgb Hct MCHC RDW 17.1 H MCV MCH Lymph % (Auto) [place] % (Auto) [place] # Eos # Lymph # (Auto) [place] # (Auto) Eos # (Auto) Seg Neutrophils % Seg Neuts % (Manual) Baso # (Auto) Lymphocytes % (Manual) Monocytes % (Manual) Eosinophils % (Manual) Basophils % (Manual) Seg Neutrophils # Seg Neutrophils # Man Lymphocytes # (Manual) Monocytes # (Manual) Eosinophils # (Manual) Nucleated RBC % Basophils # (Manual) PT INR APTT Heparin Anti-Xa Level ABG pH POC ABG pO2 ABG pO2 ABG HCO3 ABG O2 Saturation ABG Base Excess POC ABG pCO2 ABG Hemoglobin ABG Oxyhemoglobin ABG Sodium ABG Chloride ABG Glucose Oxyhemoglobin Sodium Potassium Chloride Carbon Dioxide BUN 29 H Creatinine Glucose POC Glucose 107 H Lactic Acid Calcium Phosphorus Magnesium AST ALT Lactate Dehydrogenase Total Bilirubin Direct Bilirubin CK-MB (CK-2) C-Reactive Protein NT-Pro-B Natriuret Pep Total Protein Albumin Arterial Blood Glucose Urine WBC (Auto) Urine Creatinine Digoxin 11/26/19 11/27/19 11/27/19 17:11 01:53 04:11 WBC RBC Hgb Hct MCHC RDW MCV MCH Lymph % (Auto) [place] % (Auto) [place] # Eos # Lymph # (Auto) [place] # (Auto) Eos # (Auto) Seg Neutrophils % Seg Neuts % (Manual) Baso # (Auto) Lymphocytes % (Manual) Monocytes % (Manual) Eosinophils % (Manual) Basophils % (Manual) Seg Neutrophils # Seg Neutrophils # Man Lymphocytes # (Manual) Monocytes # (Manual) Eosinophils # (Manual) Nucleated RBC % Basophils # (Manual) PT INR APTT Heparin Anti-Xa Level ABG pH POC ABG pO2 ABG pO2 ABG HCO3 29.2 H ABG O2 Saturation ABG Base Excess 3.4 H POC ABG pCO2 ABG Hemoglobin 13.3 L ABG Oxyhemoglobin ABG Sodium ABG Chloride ABG Glucose Oxyhemoglobin 94.5 L Sodium Potassium Chloride Carbon Dioxide BUN Creatinine Glucose POC Glucose 113 H 108 H Lactic Acid Calcium Phosphorus Magnesium AST ALT Lactate Dehydrogenase Total Bilirubin Direct Bilirubin CK-MB (CK-2) C-Reactive Protein NT-Pro-B Natriuret Pep Total Protein Albumin Arterial Blood Glucose Urine WBC (Auto) Urine Creatinine Digoxin 11/27/19 11/28/19 11/28/19 05:27 05:00 05:25 WBC RBC Hgb Hct MCHC RDW MCV MCH Lymph % (Auto) [place] % (Auto) [place] # Eos # Lymph # (Auto) [place] # (Auto) Eos # (Auto) Seg Neutrophils % Seg Neuts % (Manual) Baso # (Auto) Lymphocytes % (Manual) Monocytes % (Manual) Eosinophils % (Manual) Basophils % (Manual) Seg Neutrophils # Seg Neutrophils # Man Lymphocytes # (Manual) Monocytes # (Manual) Eosinophils # (Manual) Nucleated RBC % Basophils # (Manual) PT INR APTT Heparin Anti-Xa Level ABG pH POC ABG pO2 68.1 L ABG pO2 ABG HCO3 ABG O2 Saturation ABG Base Excess POC ABG pCO2 ABG Hemoglobin ABG Oxyhemoglobin 91.2 L ABG Sodium ABG Chloride ABG Glucose Oxyhemoglobin Sodium Potassium Chloride Carbon Dioxide BUN Creatinine Glucose POC Glucose 111 H 110 H Lactic Acid Calcium Phosphorus Magnesium AST ALT Lactate Dehydrogenase Total Bilirubin Direct Bilirubin CK-MB (CK-2) C-Reactive Protein NT-Pro-B Natriuret Pep Total Protein Albumin Arterial Blood Glucose Urine WBC (Auto) Urine Creatinine Digoxin 11/28/19 11/28/19 11/28/19 12:08 13:47 13:47 WBC 11.3 H RBC Hgb Hct MCHC RDW 16.1 H MCV MCH Lymph % (Auto) [place] % (Auto) 9.9 H [place] # 1.1 H Eos # Lymph # (Auto) [place] # (Auto) Eos # (Auto) Seg Neutrophils % 71.4 H Seg Neuts % (Manual) Baso # (Auto) Lymphocytes % (Manual) Monocytes % (Manual) Eosinophils % (Manual) Basophils % (Manual) Seg Neutrophils # 8.1 H Seg Neutrophils # Man Lymphocytes # (Manual) Monocytes # (Manual) Eosinophils # (Manual) Nucleated RBC % Basophils # (Manual) PT INR APTT Heparin Anti-Xa Level ABG pH POC ABG pO2 ABG pO2 ABG HCO3 ABG O2 Saturation ABG Base Excess POC ABG pCO2 ABG Hemoglobin ABG Oxyhemoglobin ABG Sodium ABG Chloride ABG Glucose Oxyhemoglobin Sodium Potassium Chloride Carbon Dioxide BUN 23 H Creatinine Glucose 123 H POC Glucose 112 H Lactic Acid Calcium Phosphorus Magnesium AST ALT Lactate Dehydrogenase Total Bilirubin Direct Bilirubin CK-MB (CK-2) C-Reactive Protein NT-Pro-B Natriuret Pep Total Protein Albumin 3.7 L Arterial Blood Glucose Urine WBC (Auto) Urine Creatinine Digoxin 11/28/19 11/29/19 11/29/19 17:26 03:55 17:04 WBC RBC Hgb Hct MCHC RDW MCV MCH Lymph % (Auto) [place] % (Auto) [place] # Eos # Lymph # (Auto) [place] # (Auto) Eos # (Auto) Seg Neutrophils % Seg Neuts % (Manual) Baso # (Auto) Lymphocytes % (Manual) Monocytes % (Manual) Eosinophils % (Manual) Basophils % (Manual) Seg Neutrophils # Seg Neutrophils # Man Lymphocytes # (Manual) Monocytes # (Manual) Eosinophils # (Manual) Nucleated RBC % Basophils # (Manual) PT INR APTT Heparin Anti-Xa Level ABG pH POC ABG pO2 ABG pO2 65.7 L ABG HCO3 28.3 H ABG O2 Saturation 93.9 L ABG Base Excess 3.6 H POC ABG pCO2 ABG Hemoglobin 13.3 L ABG Oxyhemoglobin ABG Sodium ABG Chloride ABG Glucose Oxyhemoglobin 91.5 L Sodium Potassium Chloride Carbon Dioxide BUN Creatinine Glucose POC Glucose 123 H 119 H Lactic Acid Calcium Phosphorus Magnesium AST ALT Lactate Dehydrogenase Total Bilirubin Direct Bilirubin CK-MB (CK-2) C-Reactive Protein NT-Pro-B Natriuret Pep Total Protein Albumin Arterial Blood Glucose Urine WBC (Auto) Urine Creatinine Digoxin 11/30/19 11/30/19 11/30/19 04:17 04:17 04:56 WBC 13.4 H RBC Hgb Hct MCHC RDW 15.6 H MCV MCH Lymph % (Auto) [place] % (Auto) [place] # Eos # Lymph # (Auto) [place] # (Auto) Eos # (Auto) Seg Neutrophils % Seg Neuts % (Manual) Baso # (Auto) Lymphocytes % (Manual) Monocytes % (Manual) Eosinophils % (Manual) Basophils % (Manual) Seg Neutrophils # Seg Neutrophils # Man Lymphocytes # (Manual) Monocytes # (Manual) Eosinophils # (Manual) Nucleated RBC % Basophils # (Manual) PT INR APTT Heparin Anti-Xa Level ABG pH POC ABG pO2 ABG pO2 56.3 L ABG HCO3 29.3 H ABG O2 Saturation 91.5 L ABG Base Excess 4.7 H POC ABG pCO2 ABG Hemoglobin 12.1 L ABG Oxyhemoglobin ABG Sodium ABG Chloride ABG Glucose Oxyhemoglobin 89.2 L Sodium 147 H Potassium Chloride Carbon Dioxide BUN 30 H Creatinine Glucose 124 H POC Glucose Lactic Acid Calcium Phosphorus Magnesium AST ALT Lactate Dehydrogenase Total Bilirubin Direct Bilirubin CK-MB (CK-2) C-Reactive Protein NT-Pro-B Natriuret Pep Total Protein Albumin 3.8 L Arterial Blood Glucose Urine WBC (Auto) Urine Creatinine Digoxin 11/30/19 11/30/19 11/30/19 05:51 11:54 18:17 WBC RBC Hgb Hct MCHC RDW MCV MCH Lymph % (Auto) [place] % (Auto) [place] # Eos # Lymph # (Auto) [place] # (Auto) Eos # (Auto) Seg Neutrophils % Seg Neuts % (Manual) Baso # (Auto) Lymphocytes % (Manual) Monocytes % (Manual) Eosinophils % (Manual) Basophils % (Manual) Seg Neutrophils # Seg Neutrophils # Man Lymphocytes # (Manual) Monocytes # (Manual) Eosinophils # (Manual) Nucleated RBC % Basophils # (Manual) PT INR APTT Heparin Anti-Xa Level ABG pH POC ABG pO2 ABG pO2 ABG HCO3 ABG O2 Saturation ABG Base Excess POC ABG pCO2 ABG Hemoglobin ABG Oxyhemoglobin ABG Sodium ABG Chloride ABG Glucose Oxyhemoglobin Sodium Potassium Chloride Carbon Dioxide BUN Creatinine Glucose POC Glucose 127 H 115 H 143 H Lactic Acid Calcium Phosphorus Magnesium AST ALT Lactate Dehydrogenase Total Bilirubin Direct Bilirubin CK-MB (CK-2) C-Reactive Protein NT-Pro-B Natriuret Pep Total Protein Albumin Arterial Blood Glucose Urine WBC (Auto) Urine Creatinine Digoxin 12/01/19 12/01/19 12/01/19 01:18 05:22 12:16 WBC RBC Hgb Hct MCHC RDW MCV MCH Lymph % (Auto) [place] % (Auto) [place] # Eos # Lymph # (Auto) [place] # (Auto) Eos # (Auto) Seg Neutrophils % Seg Neuts % (Manual) Baso # (Auto) Lymphocytes % (Manual) Monocytes % (Manual) Eosinophils % (Manual) Basophils % (Manual) Seg Neutrophils # Seg Neutrophils # Man Lymphocytes # (Manual) Monocytes # (Manual) Eosinophils # (Manual) Nucleated RBC % Basophils # (Manual) PT INR APTT Heparin Anti-Xa Level ABG pH POC ABG pO2 ABG pO2 ABG HCO3 ABG O2 Saturation ABG Base Excess POC ABG pCO2 ABG Hemoglobin ABG Oxyhemoglobin ABG Sodium ABG Chloride ABG Glucose Oxyhemoglobin Sodium Potassium 3.5 L Chloride 107.8 H Carbon Dioxide BUN 37 H Creatinine Glucose 157 H POC Glucose 118 H 148 H Lactic Acid Calcium 8.2 L D Phosphorus Magnesium AST 48 H ALT 60 H Lactate Dehydrogenase 194 H Total Bilirubin Direct Bilirubin CK-MB (CK-2) C-Reactive Protein 8.50 H NT-Pro-B Natriuret Pep Total Protein 5.5 L Albumin 2.8 L Arterial Blood Glucose Urine WBC (Auto) Urine Creatinine Digoxin 12/01/19 12/02/19 12/02/19 18:04 00:05 05:16 WBC 11.4 H RBC Hgb Hct MCHC RDW 15.9 H MCV MCH Lymph % (Auto) [place] % (Auto) 9.9 H [place] # 1.1 H Eos # Lymph # (Auto) [place] # (Auto) Eos # (Auto) Seg Neutrophils % 70.3 H Seg Neuts % (Manual) Baso # (Auto) Lymphocytes % (Manual) Monocytes % (Manual) Eosinophils % (Manual) Basophils % (Manual) Seg Neutrophils # 8.0 H Seg Neutrophils # Man Lymphocytes # (Manual) Monocytes # (Manual) Eosinophils # (Manual) Nucleated RBC % Basophils # (Manual) PT INR APTT Heparin Anti-Xa Level ABG pH POC ABG pO2 ABG pO2 ABG HCO3 ABG O2 Saturation ABG Base Excess POC ABG pCO2 ABG Hemoglobin ABG Oxyhemoglobin ABG Sodium ABG Chloride ABG Glucose Oxyhemoglobin Sodium Potassium Chloride Carbon Dioxide BUN Creatinine Glucose POC Glucose 143 H 107 H Lactic Acid Calcium Phosphorus Magnesium AST ALT Lactate Dehydrogenase Total Bilirubin Direct Bilirubin CK-MB (CK-2) C-Reactive Protein NT-Pro-B Natriuret Pep Total Protein Albumin Arterial Blood Glucose Urine WBC (Auto) Urine Creatinine Digoxin 12/02/19 12/02/19 12/02/19 05:16 06:03 11:52 WBC RBC Hgb Hct MCHC RDW MCV MCH Lymph % (Auto) [place] % (Auto) [place] # Eos # Lymph # (Auto) [place] # (Auto) Eos # (Auto) Seg Neutrophils % Seg Neuts % (Manual) Baso # (Auto) Lymphocytes % (Manual) Monocytes % (Manual) Eosinophils % (Manual) Basophils % (Manual) Seg Neutrophils # Seg Neutrophils # Man Lymphocytes # (Manual) Monocytes # (Manual) Eosinophils # (Manual) Nucleated RBC % Basophils # (Manual) PT INR APTT Heparin Anti-Xa Level ABG pH POC ABG pO2 ABG pO2 ABG HCO3 ABG O2 Saturation ABG Base Excess POC ABG pCO2 ABG Hemoglobin ABG Oxyhemoglobin ABG Sodium ABG Chloride ABG Glucose Oxyhemoglobin Sodium 146 H Potassium Chloride Carbon Dioxide BUN 28 H Creatinine Glucose 123 H POC Glucose 110 H 152 H Lactic Acid Calcium Phosphorus Magnesium AST ALT Lactate Dehydrogenase Total Bilirubin Direct Bilirubin CK-MB (CK-2) C-Reactive Protein NT-Pro-B Natriuret Pep Total Protein Albumin Arterial Blood Glucose Urine WBC (Auto) Urine Creatinine Digoxin 12/02/19 12/02/19 12/02/19 12:58 17:58 23:36 WBC RBC Hgb Hct MCHC RDW MCV MCH Lymph % (Auto) [place] % (Auto) [place] # Eos # Lymph # (Auto) [place] # (Auto) Eos # (Auto) Seg Neutrophils % Seg Neuts % (Manual) Baso # (Auto) Lymphocytes % (Manual) Monocytes % (Manual) Eosinophils % (Manual) Basophils % (Manual) Seg Neutrophils # Seg Neutrophils # Man Lymphocytes # (Manual) Monocytes # (Manual) Eosinophils # (Manual) Nucleated RBC % Basophils # (Manual) PT INR APTT Heparin Anti-Xa Level ABG pH POC ABG pO2 78.1 L ABG pO2 ABG HCO3 ABG O2 Saturation ABG Base Excess POC ABG pCO2 ABG Hemoglobin ABG Oxyhemoglobin ABG Sodium ABG Chloride ABG Glucose Oxyhemoglobin Sodium Potassium Chloride Carbon Dioxide BUN Creatinine Glucose POC Glucose 120 H 123 H Lactic Acid Calcium Phosphorus Magnesium AST ALT Lactate Dehydrogenase Total Bilirubin Direct Bilirubin CK-MB (CK-2) C-Reactive Protein NT-Pro-B Natriuret Pep Total Protein Albumin Arterial Blood Glucose Urine WBC (Auto) Urine Creatinine Digoxin 12/03/19 12/03/19 12/03/19 06:03 06:14 11:46 WBC RBC Hgb Hct MCHC RDW MCV MCH Lymph % (Auto) [place] % (Auto) [place] # Eos # Lymph # (Auto) [place] # (Auto) Eos # (Auto) Seg Neutrophils % Seg Neuts % (Manual) Baso # (Auto) Lymphocytes % (Manual) Monocytes % (Manual) Eosinophils % (Manual) Basophils % (Manual) Seg Neutrophils # Seg Neutrophils # Man Lymphocytes # (Manual) Monocytes # (Manual) Eosinophils # (Manual) Nucleated RBC % Basophils # (Manual) PT INR APTT Heparin Anti-Xa Level ABG pH POC ABG pO2 ABG pO2 ABG HCO3 ABG O2 Saturation ABG Base Excess POC ABG pCO2 ABG Hemoglobin ABG Oxyhemoglobin ABG Sodium ABG Chloride ABG Glucose Oxyhemoglobin Sodium Potassium Chloride Carbon Dioxide BUN Creatinine Glucose POC Glucose 142 H 130 H Lactic Acid Calcium Phosphorus Magnesium AST ALT Lactate Dehydrogenase Total Bilirubin Direct Bilirubin CK-MB (CK-2) C-Reactive Protein NT-Pro-B Natriuret Pep Total Protein Albumin Arterial Blood Glucose Urine WBC (Auto) 8.0 H Urine Creatinine Digoxin 12/03/19 12/03/19 12/04/19 15:50 17:39 00:04 WBC RBC Hgb Hct MCHC RDW MCV MCH Lymph % (Auto) [place] % (Auto) [place] # Eos # Lymph # (Auto) [place] # (Auto) Eos # (Auto) Seg Neutrophils % Seg Neuts % (Manual) Baso # (Auto) Lymphocytes % (Manual) Monocytes % (Manual) Eosinophils % (Manual) Basophils % (Manual) Seg Neutrophils # Seg Neutrophils # Man Lymphocytes # (Manual) Monocytes # (Manual) Eosinophils # (Manual) Nucleated RBC % Basophils # (Manual) PT INR APTT Heparin Anti-Xa Level ABG pH POC ABG pO2 ABG pO2 ABG HCO3 ABG O2 Saturation ABG Base Excess POC ABG pCO2 ABG Hemoglobin ABG Oxyhemoglobin ABG Sodium ABG Chloride ABG Glucose Oxyhemoglobin Sodium Potassium Chloride Carbon Dioxide BUN Creatinine Glucose POC Glucose 146 H 133 H Lactic Acid Calcium Phosphorus 2.40 L Magnesium AST ALT Lactate Dehydrogenase Total Bilirubin Direct Bilirubin CK-MB (CK-2) C-Reactive Protein NT-Pro-B Natriuret Pep Total Protein Albumin Arterial Blood Glucose Urine WBC (Auto) Urine Creatinine Digoxin 12/04/19 12/04/19 12/04/19 03:58 03:58 05:22 WBC 12.5 H RBC Hgb 11.2 L Hct 35.2 L MCHC RDW 16.0 H MCV MCH Lymph % (Auto) [place] % (Auto) 9.6 H [place] # 1.2 H Eos # 0.5 H Lymph # (Auto) [place] # (Auto) Eos # (Auto) Seg Neutrophils % Seg Neuts % (Manual) Baso # (Auto) Lymphocytes % (Manual) Monocytes % (Manual) Eosinophils % (Manual) Basophils % (Manual) Seg Neutrophils # 8.6 H Seg Neutrophils # Man Lymphocytes # (Manual) Monocytes # (Manual) Eosinophils # (Manual) Nucleated RBC % Basophils # (Manual) PT INR APTT Heparin Anti-Xa Level ABG pH POC ABG pO2 ABG pO2 ABG HCO3 ABG O2 Saturation ABG Base Excess POC ABG pCO2 ABG Hemoglobin ABG Oxyhemoglobin ABG Sodium ABG Chloride ABG Glucose Oxyhemoglobin Sodium 146 H Potassium Chloride 108.6 H Carbon Dioxide BUN 30 H Creatinine 0.7 L Glucose 121 H POC Glucose 132 H Lactic Acid Calcium Phosphorus Magnesium AST ALT Lactate Dehydrogenase Total Bilirubin Direct Bilirubin CK-MB (CK-2) C-Reactive Protein NT-Pro-B Natriuret Pep Total Protein Albumin Arterial Blood Glucose Urine WBC (Auto) Urine Creatinine Digoxin 12/04/19 12/04/19 12/05/19 13:26 18:43 00:19 WBC RBC Hgb Hct MCHC RDW MCV MCH Lymph % (Auto) [place] % (Auto) [place] # Eos # Lymph # (Auto) [place] # (Auto) Eos # (Auto) Seg Neutrophils % Seg Neuts % (Manual) Baso # (Auto) Lymphocytes % (Manual) Monocytes % (Manual) Eosinophils % (Manual) Basophils % (Manual) Seg Neutrophils # Seg Neutrophils # Man Lymphocytes # (Manual) Monocytes # (Manual) Eosinophils # (Manual) Nucleated RBC % Basophils # (Manual) PT INR APTT Heparin Anti-Xa Level ABG pH POC ABG pO2 ABG pO2 ABG HCO3 ABG O2 Saturation ABG Base Excess POC ABG pCO2 ABG Hemoglobin ABG Oxyhemoglobin ABG Sodium ABG Chloride ABG Glucose Oxyhemoglobin Sodium Potassium Chloride Carbon Dioxide BUN Creatinine Glucose POC Glucose 185 H 156 H 150 H Lactic Acid Calcium Phosphorus Magnesium AST ALT Lactate Dehydrogenase Total Bilirubin Direct Bilirubin CK-MB (CK-2) C-Reactive Protein NT-Pro-B Natriuret Pep Total Protein Albumin Arterial Blood Glucose Urine WBC (Auto) Urine Creatinine Digoxin 12/05/19 12/05/19 12/05/19 03:37 03:37 05:14 WBC 16.3 H RBC Hgb 11.4 L Hct MCHC RDW 15.6 H MCV MCH Lymph % (Auto) 9.9 L [place] % (Auto) 9.7 H [place] # 1.6 H Eos # Lymph # (Auto) [place] # (Auto) Eos # (Auto) Seg Neutrophils % 78.0 H Seg Neuts % (Manual) Baso # (Auto) Lymphocytes % (Manual) Monocytes % (Manual) Eosinophils % (Manual) Basophils % (Manual) Seg Neutrophils # 12.7 H Seg Neutrophils # Man Lymphocytes # (Manual) Monocytes # (Manual) Eosinophils # (Manual) Nucleated RBC % Basophils # (Manual) PT INR APTT Heparin Anti-Xa Level ABG pH POC ABG pO2 ABG pO2 ABG HCO3 ABG O2 Saturation ABG Base Excess POC ABG pCO2 ABG Hemoglobin ABG Oxyhemoglobin ABG Sodium ABG Chloride ABG Glucose Oxyhemoglobin Sodium 146 H Potassium Chloride 107.2 H Carbon Dioxide BUN 27 H Creatinine 0.7 L Glucose 171 H POC Glucose 168 H Lactic Acid Calcium Phosphorus Magnesium AST ALT Lactate Dehydrogenase Total Bilirubin Direct Bilirubin CK-MB (CK-2) C-Reactive Protein NT-Pro-B Natriuret Pep Total Protein Albumin Arterial Blood Glucose Urine WBC (Auto) Urine Creatinine Digoxin 12/05/19 12/05/19 12/05/19 12:31 18:10 23:58 WBC RBC Hgb Hct MCHC RDW MCV MCH Lymph % (Auto) [place] % (Auto) [place] # Eos # Lymph # (Auto) [place] # (Auto) Eos # (Auto) Seg Neutrophils % Seg Neuts % (Manual) Baso # (Auto) Lymphocytes % (Manual) Monocytes % (Manual) Eosinophils % (Manual) Basophils % (Manual) Seg Neutrophils # Seg Neutrophils # Man Lymphocytes # (Manual) Monocytes # (Manual) Eosinophils # (Manual) Nucleated RBC % Basophils # (Manual) PT INR APTT Heparin Anti-Xa Level ABG pH POC ABG pO2 ABG pO2 ABG HCO3 ABG O2 Saturation ABG Base Excess POC ABG pCO2 ABG Hemoglobin ABG Oxyhemoglobin ABG Sodium ABG Chloride ABG Glucose Oxyhemoglobin Sodium Potassium Chloride Carbon Dioxide BUN Creatinine Glucose POC Glucose 159 H 198 H 115 H Lactic Acid Calcium Phosphorus Magnesium AST ALT Lactate Dehydrogenase Total Bilirubin Direct Bilirubin CK-MB (CK-2) C-Reactive Protein NT-Pro-B Natriuret Pep Total Protein Albumin Arterial Blood Glucose Urine WBC (Auto) Urine Creatinine Digoxin 12/06/19 12/06/19 12/06/19 05:24 05:24 05:25 WBC 14.9 H RBC Hgb 10.8 L Hct 34.0 L MCHC RDW 15.6 H MCV MCH Lymph % (Auto) 10.7 L [place] % (Auto) 8.3 H [place] # 1.2 H Eos # Lymph # (Auto) [place] # (Auto) Eos # (Auto) Seg Neutrophils % 78.7 H Seg Neuts % (Manual) Baso # (Auto) Lymphocytes % (Manual) Monocytes % (Manual) Eosinophils % (Manual) Basophils % (Manual) Seg Neutrophils # 11.7 H Seg Neutrophils # Man Lymphocytes # (Manual) Monocytes # (Manual) Eosinophils # (Manual) Nucleated RBC % Basophils # (Manual) PT INR APTT Heparin Anti-Xa Level ABG pH POC ABG pO2 ABG pO2 ABG HCO3 ABG O2 Saturation ABG Base Excess POC ABG pCO2 ABG Hemoglobin ABG Oxyhemoglobin ABG Sodium ABG Chloride ABG Glucose Oxyhemoglobin Sodium 148 H Potassium 5.1 H Chloride 107.6 H Carbon Dioxide BUN 27 H Creatinine 0.7 L Glucose 155 H POC Glucose 157 H Lactic Acid Calcium Phosphorus Magnesium AST ALT Lactate Dehydrogenase Total Bilirubin Direct Bilirubin CK-MB (CK-2) C-Reactive Protein NT-Pro-B Natriuret Pep Total Protein Albumin Arterial Blood Glucose Urine WBC (Auto) Urine Creatinine Digoxin 12/07/19 12/07/19 12/07/19 00:13 05:34 11:33 WBC RBC Hgb Hct MCHC RDW MCV MCH Lymph % (Auto) [place] % (Auto) [place] # Eos # Lymph # (Auto) [place] # (Auto) Eos # (Auto) Seg Neutrophils % Seg Neuts % (Manual) Baso # (Auto) Lymphocytes % (Manual) Monocytes % (Manual) Eosinophils % (Manual) Basophils % (Manual) Seg Neutrophils # Seg Neutrophils # Man Lymphocytes # (Manual) Monocytes # (Manual) Eosinophils # (Manual) Nucleated RBC % Basophils # (Manual) PT INR APTT Heparin Anti-Xa Level ABG pH POC ABG pO2 ABG pO2 ABG HCO3 ABG O2 Saturation ABG Base Excess POC ABG pCO2 ABG Hemoglobin ABG Oxyhemoglobin ABG Sodium ABG Chloride ABG Glucose Oxyhemoglobin Sodium Potassium Chloride Carbon Dioxide BUN Creatinine Glucose POC Glucose 142 H 111 H 169 H Lactic Acid Calcium Phosphorus Magnesium AST ALT Lactate Dehydrogenase Total Bilirubin Direct Bilirubin CK-MB (CK-2) C-Reactive Protein NT-Pro-B Natriuret Pep Total Protein Albumin Arterial Blood Glucose Urine WBC (Auto) Urine Creatinine Digoxin 12/07/19 12/07/19 12/07/19 12:41 13:25 18:19 WBC 12.4 H RBC 3.53 L Hgb 10.2 L Hct 32.1 L MCHC RDW 15.3 H MCV MCH Lymph % (Auto) 10.6 L [place] % (Auto) 7.8 H [place] # 1.0 H Eos # Lymph # (Auto) [place] # (Auto) Eos # (Auto) Seg Neutrophils % 77.6 H Seg Neuts % (Manual) Baso # (Auto) Lymphocytes % (Manual) Monocytes % (Manual) Eosinophils % (Manual) Basophils % (Manual) Seg Neutrophils # 9.6 H Seg Neutrophils # Man Lymphocytes # (Manual) Monocytes # (Manual) Eosinophils # (Manual) Nucleated RBC % Basophils # (Manual) PT INR APTT Heparin Anti-Xa Level ABG pH POC ABG pO2 ABG pO2 ABG HCO3 ABG O2 Saturation ABG Base Excess POC ABG pCO2 ABG Hemoglobin ABG Oxyhemoglobin ABG Sodium ABG Chloride ABG Glucose Oxyhemoglobin Sodium 149 H Potassium Chloride 108.4 H Carbon Dioxide BUN 26 H Creatinine 0.6 L Glucose 149 H POC Glucose 164 H Lactic Acid Calcium Phosphorus Magnesium 2.60 H AST 121 H ALT 145 H Lactate Dehydrogenase Total Bilirubin Direct Bilirubin CK-MB (CK-2) C-Reactive Protein NT-Pro-B Natriuret Pep Total Protein Albumin 2.6 L Arterial Blood Glucose Urine WBC (Auto) Urine Creatinine Digoxin 12/07/19 12/08/19 12/08/19 22:25 00:02 03:55 WBC 13.3 H RBC 3.40 L Hgb 9.7 L Hct 30.8 L MCHC 31 L RDW 15.5 H MCV MCH Lymph % (Auto) [place] % (Auto) 8.1 H [place] # 1.1 H Eos # Lymph # (Auto) [place] # (Auto) Eos # (Auto) Seg Neutrophils % 73.0 H Seg Neuts % (Manual) Baso # (Auto) Lymphocytes % (Manual) Monocytes % (Manual) Eosinophils % (Manual) Basophils % (Manual) Seg Neutrophils # 9.7 H Seg Neutrophils # Man Lymphocytes # (Manual) Monocytes # (Manual) Eosinophils # (Manual) Nucleated RBC % Basophils # (Manual) PT INR APTT Heparin Anti-Xa Level 0.12 L ABG pH POC ABG pO2 ABG pO2 ABG HCO3 ABG O2 Saturation ABG Base Excess POC ABG pCO2 ABG Hemoglobin ABG Oxyhemoglobin ABG Sodium ABG Chloride ABG Glucose Oxyhemoglobin Sodium Potassium Chloride Carbon Dioxide BUN Creatinine Glucose POC Glucose 151 H Lactic Acid Calcium Phosphorus Magnesium AST ALT Lactate Dehydrogenase Total Bilirubin Direct Bilirubin CK-MB (CK-2) C-Reactive Protein NT-Pro-B Natriuret Pep Total Protein Albumin Arterial Blood Glucose Urine WBC (Auto) Urine Creatinine Digoxin 12/08/19 12/08/19 12/08/19 03:55 05:21 06:01 WBC RBC Hgb Hct MCHC RDW MCV MCH Lymph % (Auto) [place] % (Auto) [place] # Eos # Lymph # (Auto) [place] # (Auto) Eos # (Auto) Seg Neutrophils % Seg Neuts % (Manual) Baso # (Auto) Lymphocytes % (Manual) Monocytes % (Manual) Eosinophils % (Manual) Basophils % (Manual) Seg Neutrophils # Seg Neutrophils # Man Lymphocytes # (Manual) Monocytes # (Manual) Eosinophils # (Manual) Nucleated RBC % Basophils # (Manual) PT INR APTT Heparin Anti-Xa Level 0.20 L ABG pH POC ABG pO2 ABG pO2 ABG HCO3 ABG O2 Saturation ABG Base Excess POC ABG pCO2 ABG Hemoglobin ABG Oxyhemoglobin ABG Sodium ABG Chloride ABG Glucose Oxyhemoglobin Sodium 149 H Potassium Chloride 108.0 H Carbon Dioxide BUN 28 H Creatinine 0.6 L Glucose 144 H POC Glucose 143 H Lactic Acid Calcium Phosphorus Magnesium AST 98 H ALT 145 H Lactate Dehydrogenase Total Bilirubin Direct Bilirubin CK-MB (CK-2) C-Reactive Protein NT-Pro-B Natriuret Pep Total Protein 6.0 L Albumin 2.4 L Arterial Blood Glucose Urine WBC (Auto) Urine Creatinine Digoxin 12/08/19 12/08/19 12/08/19 12:08 18:11 23:53 WBC RBC Hgb Hct MCHC RDW MCV MCH Lymph % (Auto) [place] % (Auto) [place] # Eos # Lymph # (Auto) [place] # (Auto) Eos # (Auto) Seg Neutrophils % Seg Neuts % (Manual) Baso # (Auto) Lymphocytes % (Manual) Monocytes % (Manual) Eosinophils % (Manual) Basophils % (Manual) Seg Neutrophils # Seg Neutrophils # Man Lymphocytes # (Manual) Monocytes # (Manual) Eosinophils # (Manual) Nucleated RBC % Basophils # (Manual) PT INR APTT Heparin Anti-Xa Level ABG pH POC ABG pO2 ABG pO2 ABG HCO3 ABG O2 Saturation ABG Base Excess POC ABG pCO2 ABG Hemoglobin ABG Oxyhemoglobin ABG Sodium ABG Chloride ABG Glucose Oxyhemoglobin Sodium Potassium Chloride Carbon Dioxide BUN Creatinine Glucose POC Glucose 172 H 122 H 162 H Lactic Acid Calcium Phosphorus Magnesium AST ALT Lactate Dehydrogenase Total Bilirubin Direct Bilirubin CK-MB (CK-2) C-Reactive Protein NT-Pro-B Natriuret Pep Total Protein Albumin Arterial Blood Glucose Urine WBC (Auto) Urine Creatinine Digoxin 12/09/19 12/09/19 12/09/19 04:03 04:03 05:53 WBC RBC Hgb 9.1 L Hct 28.9 L MCHC RDW MCV MCH Lymph % (Auto) [place] % (Auto) [place] # Eos # Lymph # (Auto) [place] # (Auto) Eos # (Auto) Seg Neutrophils % Seg Neuts % (Manual) Baso # (Auto) Lymphocytes % (Manual) Monocytes % (Manual) Eosinophils % (Manual) Basophils % (Manual) Seg Neutrophils # Seg Neutrophils # Man Lymphocytes # (Manual) Monocytes # (Manual) Eosinophils # (Manual) Nucleated RBC % Basophils # (Manual) PT INR APTT Heparin Anti-Xa Level 0.15 L ABG pH POC ABG pO2 ABG pO2 ABG HCO3 ABG O2 Saturation ABG Base Excess POC ABG pCO2 ABG Hemoglobin ABG Oxyhemoglobin ABG Sodium ABG Chloride ABG Glucose Oxyhemoglobin Sodium Potassium Chloride Carbon Dioxide BUN Creatinine Glucose POC Glucose 124 H Lactic Acid Calcium Phosphorus Magnesium AST ALT Lactate Dehydrogenase Total Bilirubin Direct Bilirubin CK-MB (CK-2) C-Reactive Protein NT-Pro-B Natriuret Pep Total Protein Albumin Arterial Blood Glucose Urine WBC (Auto) Urine Creatinine Digoxin 12/09/19 12/09/19 12/10/19 09:43 12:41 00:13 WBC RBC Hgb Hct MCHC RDW MCV MCH Lymph % (Auto) [place] % (Auto) [place] # Eos # Lymph # (Auto) [place] # (Auto) Eos # (Auto) Seg Neutrophils % Seg Neuts % (Manual) Baso # (Auto) Lymphocytes % (Manual) Monocytes % (Manual) Eosinophils % (Manual) Basophils % (Manual) Seg Neutrophils # Seg Neutrophils # Man Lymphocytes # (Manual) Monocytes # (Manual) Eosinophils # (Manual) Nucleated RBC % Basophils # (Manual) PT INR APTT Heparin Anti-Xa Level ABG pH POC ABG pO2 ABG pO2 ABG HCO3 ABG O2 Saturation ABG Base Excess POC ABG pCO2 ABG Hemoglobin ABG Oxyhemoglobin ABG Sodium ABG Chloride ABG Glucose Oxyhemoglobin Sodium Potassium Chloride Carbon Dioxide BUN 25 H Creatinine 0.6 L Glucose 131 H POC Glucose 109 H 120 H Lactic Acid Calcium Phosphorus Magnesium AST ALT Lactate Dehydrogenase Total Bilirubin Direct Bilirubin CK-MB (CK-2) C-Reactive Protein NT-Pro-B Natriuret Pep Total Protein Albumin Arterial Blood Glucose Urine WBC (Auto) Urine Creatinine Digoxin 12/10/19 12/10/19 12/10/19 04:14 04:14 12:00 WBC 13.3 H RBC 3.34 L Hgb 9.6 L Hct 30.4 L MCHC RDW 15.4 H MCV MCH Lymph % (Auto) [place] % (Auto) [place] # Eos # Lymph # (Auto) [place] # (Auto) Eos # (Auto) Seg Neutrophils % Seg Neuts % (Manual) 75.0 H Baso # (Auto) Lymphocytes % (Manual) 13.0 L Monocytes % (Manual) 8.0 H Eosinophils % (Manual) Basophils % (Manual) 2.0 H Seg Neutrophils # Seg Neutrophils # Man 10.0 H Lymphocytes # (Manual) Monocytes # (Manual) 1.1 H Eosinophils # (Manual) Nucleated RBC % Basophils # (Manual) 0.3 H PT INR APTT Heparin Anti-Xa Level ABG pH POC ABG pO2 ABG pO2 ABG HCO3 ABG O2 Saturation ABG Base Excess POC ABG pCO2 ABG Hemoglobin ABG Oxyhemoglobin ABG Sodium ABG Chloride ABG Glucose Oxyhemoglobin Sodium 147 H Potassium Chloride 108.3 H Carbon Dioxide BUN 21 H Creatinine 0.6 L Glucose 104 H POC Glucose 133 H Lactic Acid Calcium Phosphorus Magnesium AST ALT Lactate Dehydrogenase Total Bilirubin Direct Bilirubin CK-MB (CK-2) C-Reactive Protein NT-Pro-B Natriuret Pep Total Protein Albumin Arterial Blood Glucose Urine WBC (Auto) Urine Creatinine Digoxin 12/10/19 12/10/19 12/11/19 18:44 21:20 00:08 WBC 14.9 H RBC 3.36 L Hgb 9.6 L Hct 30.5 L MCHC RDW 15.4 H MCV MCH Lymph % (Auto) [place] % (Auto) [place] # Eos # Lymph # (Auto) [place] # (Auto) Eos # (Auto) Seg Neutrophils % Seg Neuts % (Manual) Baso # (Auto) Lymphocytes % (Manual) Monocytes % (Manual) Eosinophils % (Manual) Basophils % (Manual) Seg Neutrophils # Seg Neutrophils # Man Lymphocytes # (Manual) Monocytes # (Manual) Eosinophils # (Manual) Nucleated RBC % Basophils # (Manual) PT INR APTT Heparin Anti-Xa Level ABG pH POC ABG pO2 ABG pO2 ABG HCO3 ABG O2 Saturation ABG Base Excess POC ABG pCO2 ABG Hemoglobin ABG Oxyhemoglobin ABG Sodium ABG Chloride ABG Glucose Oxyhemoglobin Sodium Potassium Chloride Carbon Dioxide BUN Creatinine Glucose POC Glucose 119 H 134 H Lactic Acid Calcium Phosphorus Magnesium AST ALT Lactate Dehydrogenase Total Bilirubin Direct Bilirubin CK-MB (CK-2) C-Reactive Protein NT-Pro-B Natriuret Pep Total Protein Albumin Arterial Blood Glucose Urine WBC (Auto) Urine Creatinine Digoxin 12/11/19 12/11/19 12/11/19 03:54 07:28 08:36 WBC 11.9 H RBC 3.25 L Hgb 9.6 L Hct 29.2 L MCHC RDW 15.7 H MCV MCH Lymph % (Auto) [place] % (Auto) [place] # Eos # Lymph # (Auto) [place] # (Auto) Eos # (Auto) Seg Neutrophils % Seg Neuts % (Manual) Baso # (Auto) Lymphocytes % (Manual) Monocytes % (Manual) Eosinophils % (Manual) Basophils % (Manual) Seg Neutrophils # Seg Neutrophils # Man Lymphocytes # (Manual) Monocytes # (Manual) Eosinophils # (Manual) Nucleated RBC % Basophils # (Manual) PT INR APTT Heparin Anti-Xa Level 0.10 L 0.16 L ABG pH POC ABG pO2 ABG pO2 ABG HCO3 ABG O2 Saturation ABG Base Excess POC ABG pCO2 ABG Hemoglobin ABG Oxyhemoglobin ABG Sodium ABG Chloride ABG Glucose Oxyhemoglobin Sodium Potassium Chloride Carbon Dioxide BUN Creatinine Glucose POC Glucose Lactic Acid Calcium Phosphorus Magnesium AST ALT Lactate Dehydrogenase Total Bilirubin Direct Bilirubin CK-MB (CK-2) C-Reactive Protein NT-Pro-B Natriuret Pep Total Protein Albumin Arterial Blood Glucose Urine WBC (Auto) Urine Creatinine Digoxin 12/11/19 12/11/19 12/11/19 08:36 11:45 17:15 WBC RBC Hgb Hct MCHC RDW MCV MCH Lymph % (Auto) [place] % (Auto) [place] # Eos # Lymph # (Auto) [place] # (Auto) Eos # (Auto) Seg Neutrophils % Seg Neuts % (Manual) Baso # (Auto) Lymphocytes % (Manual) Monocytes % (Manual) Eosinophils % (Manual) Basophils % (Manual) Seg Neutrophils # Seg Neutrophils # Man Lymphocytes # (Manual) Monocytes # (Manual) Eosinophils # (Manual) Nucleated RBC % Basophils # (Manual) PT INR APTT Heparin Anti-Xa Level ABG pH POC ABG pO2 ABG pO2 ABG HCO3 ABG O2 Saturation ABG Base Excess POC ABG pCO2 ABG Hemoglobin ABG Oxyhemoglobin ABG Sodium ABG Chloride ABG Glucose Oxyhemoglobin Sodium Potassium Chloride Carbon Dioxide BUN Creatinine 0.5 L Glucose 128 H POC Glucose 136 H 109 H Lactic Acid Calcium Phosphorus Magnesium AST ALT Lactate Dehydrogenase Total Bilirubin Direct Bilirubin CK-MB (CK-2) C-Reactive Protein NT-Pro-B Natriuret Pep Total Protein Albumin Arterial Blood Glucose Urine WBC (Auto) Urine Creatinine Digoxin 12/12/19 12/12/19 12/12/19 00:03 05:53 05:53 WBC RBC Hgb 8.8 L Hct 27.6 L MCHC RDW MCV MCH Lymph % (Auto) [place] % (Auto) [place] # Eos # Lymph # (Auto) [place] # (Auto) Eos # (Auto) Seg Neutrophils % Seg Neuts % (Manual) Baso # (Auto) Lymphocytes % (Manual) Monocytes % (Manual) Eosinophils % (Manual) Basophils % (Manual) Seg Neutrophils # Seg Neutrophils # Man Lymphocytes # (Manual) Monocytes # (Manual) Eosinophils # (Manual) Nucleated RBC % Basophils # (Manual) PT INR APTT Heparin Anti-Xa Level 0.22 L ABG pH POC ABG pO2 ABG pO2 ABG HCO3 ABG O2 Saturation ABG Base Excess POC ABG pCO2 ABG Hemoglobin ABG Oxyhemoglobin ABG Sodium ABG Chloride ABG Glucose Oxyhemoglobin Sodium Potassium Chloride Carbon Dioxide BUN Creatinine Glucose POC Glucose 116 H Lactic Acid Calcium Phosphorus Magnesium AST ALT Lactate Dehydrogenase Total Bilirubin Direct Bilirubin CK-MB (CK-2) C-Reactive Protein NT-Pro-B Natriuret Pep Total Protein Albumin Arterial Blood Glucose Urine WBC (Auto) Urine Creatinine Digoxin 12/12/19 12/12/19 12/12/19 09:38 12:18 17:44 WBC RBC Hgb Hct MCHC RDW MCV MCH Lymph % (Auto) [place] % (Auto) [place] # Eos # Lymph # (Auto) [place] # (Auto) Eos # (Auto) Seg Neutrophils % Seg Neuts % (Manual) Baso # (Auto) Lymphocytes % (Manual) Monocytes % (Manual) Eosinophils % (Manual) Basophils % (Manual) Seg Neutrophils # Seg Neutrophils # Man Lymphocytes # (Manual) Monocytes # (Manual) Eosinophils # (Manual) Nucleated RBC % Basophils # (Manual) PT INR APTT Heparin Anti-Xa Level ABG pH POC ABG pO2 ABG pO2 ABG HCO3 ABG O2 Saturation ABG Base Excess POC ABG pCO2 ABG Hemoglobin ABG Oxyhemoglobin ABG Sodium ABG Chloride ABG Glucose Oxyhemoglobin Sodium Potassium Chloride Carbon Dioxide BUN Creatinine Glucose POC Glucose 115 H 146 H 146 H Lactic Acid Calcium Phosphorus Magnesium AST ALT Lactate Dehydrogenase Total Bilirubin Direct Bilirubin CK-MB (CK-2) C-Reactive Protein NT-Pro-B Natriuret Pep Total Protein Albumin Arterial Blood Glucose Urine WBC (Auto) Urine Creatinine Digoxin 12/12/19 12/13/19 12/13/19 23:33 05:32 05:32 WBC 13.1 H RBC 3.27 L Hgb 9.5 L Hct 29.3 L MCHC RDW 15.6 H MCV MCH Lymph % (Auto) [place] % (Auto) [place] # Eos # Lymph # (Auto) [place] # (Auto) Eos # (Auto) Seg Neutrophils % Seg Neuts % (Manual) 74.0 H Baso # (Auto) Lymphocytes % (Manual) 8.0 L Monocytes % (Manual) 9.0 H Eosinophils % (Manual) 5.0 H Basophils % (Manual) Seg Neutrophils # Seg Neutrophils # Man 9.7 H Lymphocytes # (Manual) 1.0 L Monocytes # (Manual) 1.2 H Eosinophils # (Manual) 0.7 H Nucleated RBC % Basophils # (Manual) PT INR APTT Heparin Anti-Xa Level 0.20 L ABG pH POC ABG pO2 ABG pO2 ABG HCO3 ABG O2 Saturation ABG Base Excess POC ABG pCO2 ABG Hemoglobin ABG Oxyhemoglobin ABG Sodium ABG Chloride ABG Glucose Oxyhemoglobin Sodium Potassium Chloride Carbon Dioxide BUN Creatinine Glucose POC Glucose 126 H Lactic Acid Calcium Phosphorus Magnesium AST ALT Lactate Dehydrogenase Total Bilirubin Direct Bilirubin CK-MB (CK-2) C-Reactive Protein NT-Pro-B Natriuret Pep Total Protein Albumin Arterial Blood Glucose Urine WBC (Auto) Urine Creatinine Digoxin 12/13/19 12/13/19 12/13/19 05:32 05:46 11:57 WBC RBC Hgb Hct MCHC RDW MCV MCH Lymph % (Auto) [place] % (Auto) [place] # Eos # Lymph # (Auto) [place] # (Auto) Eos # (Auto) Seg Neutrophils % Seg Neuts % (Manual) Baso # (Auto) Lymphocytes % (Manual) Monocytes % (Manual) Eosinophils % (Manual) Basophils % (Manual) Seg Neutrophils # Seg Neutrophils # Man Lymphocytes # (Manual) Monocytes # (Manual) Eosinophils # (Manual) Nucleated RBC % Basophils # (Manual) PT INR APTT Heparin Anti-Xa Level ABG pH POC ABG pO2 ABG pO2 ABG HCO3 ABG O2 Saturation ABG Base Excess POC ABG pCO2 ABG Hemoglobin ABG Oxyhemoglobin ABG Sodium ABG Chloride ABG Glucose Oxyhemoglobin Sodium Potassium Chloride Carbon Dioxide 31 H BUN Creatinine 0.6 L Glucose 114 H POC Glucose 118 H 133 H Lactic Acid Calcium Phosphorus Magnesium AST ALT Lactate Dehydrogenase Total Bilirubin Direct Bilirubin CK-MB (CK-2) C-Reactive Protein NT-Pro-B Natriuret Pep Total Protein Albumin Arterial Blood Glucose Urine WBC (Auto) Urine Creatinine Digoxin 12/13/19 12/13/19 12/14/19 17:44 23:46 05:32 WBC RBC Hgb Hct MCHC RDW MCV MCH Lymph % (Auto) [place] % (Auto) [place] # Eos # Lymph # (Auto) [place] # (Auto) Eos # (Auto) Seg Neutrophils % Seg Neuts % (Manual) Baso # (Auto) Lymphocytes % (Manual) Monocytes % (Manual) Eosinophils % (Manual) Basophils % (Manual) Seg Neutrophils # Seg Neutrophils # Man Lymphocytes # (Manual) Monocytes # (Manual) Eosinophils # (Manual) Nucleated RBC % Basophils # (Manual) PT INR APTT Heparin Anti-Xa Level ABG pH POC ABG pO2 ABG pO2 ABG HCO3 ABG O2 Saturation ABG Base Excess POC ABG pCO2 ABG Hemoglobin ABG Oxyhemoglobin ABG Sodium ABG Chloride ABG Glucose Oxyhemoglobin Sodium Potassium Chloride Carbon Dioxide BUN Creatinine Glucose POC Glucose 161 H 126 H 139 H Lactic Acid Calcium Phosphorus Magnesium AST ALT Lactate Dehydrogenase Total Bilirubin Direct Bilirubin CK-MB (CK-2) C-Reactive Protein NT-Pro-B Natriuret Pep Total Protein Albumin Arterial Blood Glucose Urine WBC (Auto) Urine Creatinine Digoxin 12/14/19 12/14/19 12/14/19 06:03 06:03 09:37 WBC RBC Hgb 9.6 L Hct 30.4 L MCHC RDW MCV MCH Lymph % (Auto) [place] % (Auto) [place] # Eos # Lymph # (Auto) [place] # (Auto) Eos # (Auto) Seg Neutrophils % Seg Neuts % (Manual) Baso # (Auto) Lymphocytes % (Manual) Monocytes % (Manual) Eosinophils % (Manual) Basophils % (Manual) Seg Neutrophils # Seg Neutrophils # Man Lymphocytes # (Manual) Monocytes # (Manual) Eosinophils # (Manual) Nucleated RBC % Basophils # (Manual) PT INR APTT Heparin Anti-Xa Level 0.24 L ABG pH POC ABG pO2 ABG pO2 ABG HCO3 ABG O2 Saturation ABG Base Excess POC ABG pCO2 ABG Hemoglobin ABG Oxyhemoglobin ABG Sodium ABG Chloride ABG Glucose Oxyhemoglobin Sodium Potassium Chloride Carbon Dioxide BUN Creatinine 0.6 L Glucose 162 H POC Glucose Lactic Acid Calcium Phosphorus Magnesium AST 71 H ALT 118 H Lactate Dehydrogenase Total Bilirubin Direct Bilirubin CK-MB (CK-2) C-Reactive Protein NT-Pro-B Natriuret Pep Total Protein 6.2 L Albumin 2.3 L Arterial Blood Glucose Urine WBC (Auto) Urine Creatinine Digoxin 12/14/19 12/14/19 12/15/19 12:06 18:18 00:19 WBC RBC Hgb Hct MCHC RDW MCV MCH Lymph % (Auto) [place] % (Auto) [place] # Eos # Lymph # (Auto) [place] # (Auto) Eos # (Auto) Seg Neutrophils % Seg Neuts % (Manual) Baso # (Auto) Lymphocytes % (Manual) Monocytes % (Manual) Eosinophils % (Manual) Basophils % (Manual) Seg Neutrophils # Seg Neutrophils # Man Lymphocytes # (Manual) Monocytes # (Manual) Eosinophils # (Manual) Nucleated RBC % Basophils # (Manual) PT INR APTT Heparin Anti-Xa Level ABG pH POC ABG pO2 ABG pO2 ABG HCO3 ABG O2 Saturation ABG Base Excess POC ABG pCO2 ABG Hemoglobin ABG Oxyhemoglobin ABG Sodium ABG Chloride ABG Glucose Oxyhemoglobin Sodium Potassium Chloride Carbon Dioxide BUN Creatinine Glucose POC Glucose 147 H 166 H 123 H Lactic Acid Calcium Phosphorus Magnesium AST ALT Lactate Dehydrogenase Total Bilirubin Direct Bilirubin CK-MB (CK-2) C-Reactive Protein NT-Pro-B Natriuret Pep Total Protein Albumin Arterial Blood Glucose Urine WBC (Auto) Urine Creatinine Digoxin 12/15/19 12/15/19 12/15/19 05:28 05:29 05:29 WBC 14.9 H RBC 3.19 L Hgb 9.1 L Hct 28.7 L MCHC RDW 16.0 H MCV MCH Lymph % (Auto) [place] % (Auto) [place] # Eos # Lymph # (Auto) [place] # (Auto) Eos # (Auto) Seg Neutrophils % Seg Neuts % (Manual) Baso # (Auto) Lymphocytes % (Manual) Monocytes % (Manual) Eosinophils % (Manual) Basophils % (Manual) Seg Neutrophils # Seg Neutrophils # Man Lymphocytes # (Manual) Monocytes # (Manual) Eosinophils # (Manual) Nucleated RBC % Basophils # (Manual) PT INR APTT Heparin Anti-Xa Level 0.19 L ABG pH POC ABG pO2 ABG pO2 ABG HCO3 ABG O2 Saturation ABG Base Excess POC ABG pCO2 ABG Hemoglobin ABG Oxyhemoglobin ABG Sodium ABG Chloride ABG Glucose Oxyhemoglobin Sodium Potassium Chloride Carbon Dioxide BUN Creatinine 0.6 L Glucose 110 H POC Glucose Lactic Acid Calcium Phosphorus Magnesium AST ALT Lactate Dehydrogenase Total Bilirubin Direct Bilirubin CK-MB (CK-2) C-Reactive Protein NT-Pro-B Natriuret Pep Total Protein Albumin Arterial Blood Glucose Urine WBC (Auto) Urine Creatinine Digoxin 12/15/19 12/15/19 12/15/19 05:53 11:50 17:26 WBC RBC Hgb Hct MCHC RDW MCV MCH Lymph % (Auto) [place] % (Auto) [place] # Eos # Lymph # (Auto) [place] # (Auto) Eos # (Auto) Seg Neutrophils % Seg Neuts % (Manual) Baso # (Auto) Lymphocytes % (Manual) Monocytes % (Manual) Eosinophils % (Manual) Basophils % (Manual) Seg Neutrophils # Seg Neutrophils # Man Lymphocytes # (Manual) Monocytes # (Manual) Eosinophils # (Manual) Nucleated RBC % Basophils # (Manual) PT INR APTT Heparin Anti-Xa Level ABG pH POC ABG pO2 ABG pO2 ABG HCO3 ABG O2 Saturation ABG Base Excess POC ABG pCO2 ABG Hemoglobin ABG Oxyhemoglobin ABG Sodium ABG Chloride ABG Glucose Oxyhemoglobin Sodium Potassium Chloride Carbon Dioxide BUN Creatinine Glucose POC Glucose 119 H 132 H 128 H Lactic Acid Calcium Phosphorus Magnesium AST ALT Lactate Dehydrogenase Total Bilirubin Direct Bilirubin CK-MB (CK-2) C-Reactive Protein NT-Pro-B Natriuret Pep Total Protein Albumin Arterial Blood Glucose Urine WBC (Auto) Urine Creatinine Digoxin 12/15/19 12/16/19 12/16/19 23:11 05:30 05:46 WBC RBC Hgb 8.8 L Hct 27.9 L MCHC RDW MCV MCH Lymph % (Auto) [place] % (Auto) [place] # Eos # Lymph # (Auto) [place] # (Auto) Eos # (Auto) Seg Neutrophils % Seg Neuts % (Manual) Baso # (Auto) Lymphocytes % (Manual) Monocytes % (Manual) Eosinophils % (Manual) Basophils % (Manual) Seg Neutrophils # Seg Neutrophils # Man Lymphocytes # (Manual) Monocytes # (Manual) Eosinophils # (Manual) Nucleated RBC % Basophils # (Manual) PT INR APTT Heparin Anti-Xa Level ABG pH POC ABG pO2 ABG pO2 ABG HCO3 ABG O2 Saturation ABG Base Excess POC ABG pCO2 ABG Hemoglobin ABG Oxyhemoglobin ABG Sodium ABG Chloride ABG Glucose Oxyhemoglobin Sodium Potassium Chloride Carbon Dioxide BUN Creatinine Glucose POC Glucose 150 H 134 H Lactic Acid Calcium Phosphorus Magnesium AST ALT Lactate Dehydrogenase Total Bilirubin Direct Bilirubin CK-MB (CK-2) C-Reactive Protein NT-Pro-B Natriuret Pep Total Protein Albumin Arterial Blood Glucose Urine WBC (Auto) Urine Creatinine Digoxin 12/16/19 12/16/19 12/16/19 05:46 05:46 11:44 WBC RBC Hgb Hct MCHC RDW MCV MCH Lymph % (Auto) [place] % (Auto) [place] # Eos # Lymph # (Auto) [place] # (Auto) Eos # (Auto) Seg Neutrophils % Seg Neuts % (Manual) Baso # (Auto) Lymphocytes % (Manual) Monocytes % (Manual) Eosinophils % (Manual) Basophils % (Manual) Seg Neutrophils # Seg Neutrophils # Man Lymphocytes # (Manual) Monocytes # (Manual) Eosinophils # (Manual) Nucleated RBC % Basophils # (Manual) PT INR APTT Heparin Anti-Xa Level 0.20 L ABG pH POC ABG pO2 ABG pO2 ABG HCO3 ABG O2 Saturation ABG Base Excess POC ABG pCO2 ABG Hemoglobin ABG Oxyhemoglobin ABG Sodium ABG Chloride ABG Glucose Oxyhemoglobin Sodium Potassium Chloride Carbon Dioxide 31 H BUN Creatinine 0.5 L Glucose 147 H POC Glucose 164 H Lactic Acid Calcium Phosphorus Magnesium AST ALT Lactate Dehydrogenase Total Bilirubin Direct Bilirubin CK-MB (CK-2) C-Reactive Protein NT-Pro-B Natriuret Pep Total Protein Albumin Arterial Blood Glucose Urine WBC (Auto) Urine Creatinine Digoxin 12/16/19 12/16/19 12/17/19 17:17 23:49 05:30 WBC 13.9 H RBC 3.27 L Hgb 9.4 L Hct 29.2 L MCHC RDW 16.0 H MCV MCH Lymph % (Auto) [place] % (Auto) 8.8 H [place] # Eos # Lymph # (Auto) [place] # (Auto) 1.2 H Eos # (Auto) 0.5 H Seg Neutrophils % 70.5 H Seg Neuts % (Manual) Baso # (Auto) 0.2 H Lymphocytes % (Manual) Monocytes % (Manual) Eosinophils % (Manual) Basophils % (Manual) Seg Neutrophils # 9.8 H Seg Neutrophils # Man Lymphocytes # (Manual) Monocytes # (Manual) Eosinophils # (Manual) Nucleated RBC % Basophils # (Manual) PT INR APTT Heparin Anti-Xa Level ABG pH POC ABG pO2 ABG pO2 ABG HCO3 ABG O2 Saturation ABG Base Excess POC ABG pCO2 ABG Hemoglobin ABG Oxyhemoglobin ABG Sodium ABG Chloride ABG Glucose Oxyhemoglobin Sodium Potassium Chloride Carbon Dioxide BUN Creatinine Glucose POC Glucose 162 H 144 H Lactic Acid Calcium Phosphorus Magnesium AST ALT Lactate Dehydrogenase Total Bilirubin Direct Bilirubin CK-MB (CK-2) C-Reactive Protein NT-Pro-B Natriuret Pep Total Protein Albumin Arterial Blood Glucose Urine WBC (Auto) Urine Creatinine Digoxin 12/17/19 12/17/19 12/17/19 05:30 06:06 11:50 WBC RBC Hgb Hct MCHC RDW MCV MCH Lymph % (Auto) [place] % (Auto) [place] # Eos # Lymph # (Auto) [place] # (Auto) Eos # (Auto) Seg Neutrophils % Seg Neuts % (Manual) Baso # (Auto) Lymphocytes % (Manual) Monocytes % (Manual) Eosinophils % (Manual) Basophils % (Manual) Seg Neutrophils # Seg Neutrophils # Man Lymphocytes # (Manual) Monocytes # (Manual) Eosinophils # (Manual) Nucleated RBC % Basophils # (Manual) PT INR APTT Heparin Anti-Xa Level ABG pH POC ABG pO2 ABG pO2 ABG HCO3 ABG O2 Saturation ABG Base Excess POC ABG pCO2 ABG Hemoglobin ABG Oxyhemoglobin ABG Sodium ABG Chloride ABG Glucose Oxyhemoglobin Sodium Potassium Chloride 97.4 L Carbon Dioxide 32 H BUN Creatinine 0.5 L Glucose 135 H POC Glucose 151 H 140 H Lactic Acid Calcium Phosphorus Magnesium AST ALT Lactate Dehydrogenase Total Bilirubin Direct Bilirubin CK-MB (CK-2) C-Reactive Protein NT-Pro-B Natriuret Pep Total Protein Albumin Arterial Blood Glucose Urine WBC (Auto) Urine Creatinine Digoxin 12/17/19 12/17/19 12/18/19 17:50 23:46 05:17 WBC RBC Hgb 8.8 L Hct 28.0 L MCHC RDW MCV MCH Lymph % (Auto) [place] % (Auto) [place] # Eos # Lymph # (Auto) [place] # (Auto) Eos # (Auto) Seg Neutrophils % Seg Neuts % (Manual) Baso # (Auto) Lymphocytes % (Manual) Monocytes % (Manual) Eosinophils % (Manual) Basophils % (Manual) Seg Neutrophils # Seg Neutrophils # Man Lymphocytes # (Manual) Monocytes # (Manual) Eosinophils # (Manual) Nucleated RBC % Basophils # (Manual) PT INR APTT Heparin Anti-Xa Level ABG pH POC ABG pO2 ABG pO2 ABG HCO3 ABG O2 Saturation ABG Base Excess POC ABG pCO2 ABG Hemoglobin ABG Oxyhemoglobin ABG Sodium ABG Chloride ABG Glucose Oxyhemoglobin Sodium Potassium Chloride Carbon Dioxide BUN Creatinine Glucose POC Glucose 158 H 150 H Lactic Acid Calcium Phosphorus Magnesium AST ALT Lactate Dehydrogenase Total Bilirubin Direct Bilirubin CK-MB (CK-2) C-Reactive Protein NT-Pro-B Natriuret Pep Total Protein Albumin Arterial Blood Glucose Urine WBC (Auto) Urine Creatinine Digoxin 12/18/19 12/18/19 12/18/19 05:17 05:49 11:12 WBC RBC Hgb Hct MCHC RDW MCV MCH Lymph % (Auto) [place] % (Auto) [place] # Eos # Lymph # (Auto) [place] # (Auto) Eos # (Auto) Seg Neutrophils % Seg Neuts % (Manual) Baso # (Auto) Lymphocytes % (Manual) Monocytes % (Manual) Eosinophils % (Manual) Basophils % (Manual) Seg Neutrophils # Seg Neutrophils # Man Lymphocytes # (Manual) Monocytes # (Manual) Eosinophils # (Manual) Nucleated RBC % Basophils # (Manual) PT INR APTT Heparin Anti-Xa Level 0.16 L ABG pH POC ABG pO2 ABG pO2 ABG HCO3 ABG O2 Saturation ABG Base Excess POC ABG pCO2 ABG Hemoglobin ABG Oxyhemoglobin ABG Sodium ABG Chloride ABG Glucose Oxyhemoglobin Sodium Potassium Chloride Carbon Dioxide BUN Creatinine Glucose POC Glucose 127 H 191 H Lactic Acid Calcium Phosphorus Magnesium AST ALT Lactate Dehydrogenase Total Bilirubin Direct Bilirubin CK-MB (CK-2) C-Reactive Protein NT-Pro-B Natriuret Pep Total Protein Albumin Arterial Blood Glucose Urine WBC (Auto) Urine Creatinine Digoxin 12/18/19 12/18/19 12/19/19 17:03 20:16 00:08 WBC RBC Hgb Hct MCHC RDW MCV MCH Lymph % (Auto) [place] % (Auto) [place] # Eos # Lymph # (Auto) [place] # (Auto) Eos # (Auto) Seg Neutrophils % Seg Neuts % (Manual) Baso # (Auto) Lymphocytes % (Manual) Monocytes % (Manual) Eosinophils % (Manual) Basophils % (Manual) Seg Neutrophils # Seg Neutrophils # Man Lymphocytes # (Manual) Monocytes # (Manual) Eosinophils # (Manual) Nucleated RBC % Basophils # (Manual) PT INR APTT Heparin Anti-Xa Level ABG pH POC ABG pO2 ABG pO2 ABG HCO3 ABG O2 Saturation ABG Base Excess POC ABG pCO2 ABG Hemoglobin ABG Oxyhemoglobin ABG Sodium ABG Chloride ABG Glucose Oxyhemoglobin Sodium Potassium Chloride Carbon Dioxide BUN Creatinine Glucose POC Glucose 133 H 128 H 129 H Lactic Acid Calcium Phosphorus Magnesium AST ALT Lactate Dehydrogenase Total Bilirubin Direct Bilirubin CK-MB (CK-2) C-Reactive Protein NT-Pro-B Natriuret Pep Total Protein Albumin Arterial Blood Glucose Urine WBC (Auto) Urine Creatinine Digoxin 12/19/19 12/19/19 12/19/19 04:45 04:45 05:35 WBC RBC Hgb Hct MCHC RDW MCV MCH Lymph % (Auto) [place] % (Auto) [place] # Eos # Lymph # (Auto) [place] # (Auto) Eos # (Auto) Seg Neutrophils % Seg Neuts % (Manual) Baso # (Auto) Lymphocytes % (Manual) Monocytes % (Manual) Eosinophils % (Manual) Basophils % (Manual) Seg Neutrophils # Seg Neutrophils # Man Lymphocytes # (Manual) Monocytes # (Manual) Eosinophils # (Manual) Nucleated RBC % Basophils # (Manual) PT INR APTT Heparin Anti-Xa Level 0.17 L ABG pH POC ABG pO2 ABG pO2 ABG HCO3 ABG O2 Saturation ABG Base Excess POC ABG pCO2 ABG Hemoglobin ABG Oxyhemoglobin ABG Sodium ABG Chloride ABG Glucose Oxyhemoglobin Sodium Potassium Chloride Carbon Dioxide BUN Creatinine Glucose POC Glucose 120 H Lactic Acid Calcium Phosphorus Magnesium AST ALT Lactate Dehydrogenase 228 H Total Bilirubin Direct Bilirubin CK-MB (CK-2) C-Reactive Protein NT-Pro-B Natriuret Pep Total Protein Albumin Arterial Blood Glucose Urine WBC (Auto) Urine Creatinine Digoxin 12/19/19 12/19/19 12/19/19 09:20 11:32 11:32 WBC 14.6 H RBC 3.08 L Hgb 9.0 L Hct 26.8 L MCHC RDW 15.9 H MCV MCH Lymph % (Auto) [place] % (Auto) [place] # Eos # Lymph # (Auto) [place] # (Auto) Eos # (Auto) Seg Neutrophils % Seg Neuts % (Manual) 82.0 H Baso # (Auto) Lymphocytes % (Manual) 10.0 L Monocytes % (Manual) Eosinophils % (Manual) Basophils % (Manual) Seg Neutrophils # Seg Neutrophils # Man 12.0 H Lymphocytes # (Manual) Monocytes # (Manual) 0.9 H Eosinophils # (Manual) Nucleated RBC % 1.0 H Basophils # (Manual) PT INR APTT Heparin Anti-Xa Level ABG pH 7.451 H POC ABG pO2 ABG pO2 62.6 L ABG HCO3 33.2 H ABG O2 Saturation 93.8 L ABG Base Excess 8.3 H POC ABG pCO2 ABG Hemoglobin 8.3 L ABG Oxyhemoglobin ABG Sodium ABG Chloride ABG Glucose Oxyhemoglobin 91.9 L Sodium Potassium Chloride 95.0 L Carbon Dioxide 33 H BUN 22 H Creatinine 0.6 L Glucose 150 H POC Glucose Lactic Acid Calcium Phosphorus Magnesium AST ALT Lactate Dehydrogenase Total Bilirubin Direct Bilirubin CK-MB (CK-2) C-Reactive Protein NT-Pro-B Natriuret Pep Total Protein 6.2 L Albumin 2.4 L Arterial Blood Glucose Urine WBC (Auto) Urine Creatinine Digoxin 12/19/19 12/19/19 12/20/19 11:56 18:17 00:09 WBC RBC Hgb Hct MCHC RDW MCV MCH Lymph % (Auto) [place] % (Auto) [place] # Eos # Lymph # (Auto) [place] # (Auto) Eos # (Auto) Seg Neutrophils % Seg Neuts % (Manual) Baso # (Auto) Lymphocytes % (Manual) Monocytes % (Manual) Eosinophils % (Manual) Basophils % (Manual) Seg Neutrophils # Seg Neutrophils # Man Lymphocytes # (Manual) Monocytes # (Manual) Eosinophils # (Manual) Nucleated RBC % Basophils # (Manual) PT INR APTT Heparin Anti-Xa Level ABG pH POC ABG pO2 ABG pO2 ABG HCO3 ABG O2 Saturation ABG Base Excess POC ABG pCO2 ABG Hemoglobin ABG Oxyhemoglobin ABG Sodium ABG Chloride ABG Glucose Oxyhemoglobin Sodium Potassium Chloride Carbon Dioxide BUN Creatinine Glucose POC Glucose 156 H 156 H 155 H Lactic Acid Calcium Phosphorus Magnesium AST ALT Lactate Dehydrogenase Total Bilirubin Direct Bilirubin CK-MB (CK-2) C-Reactive Protein NT-Pro-B Natriuret Pep Total Protein Albumin Arterial Blood Glucose Urine WBC (Auto) Urine Creatinine Digoxin 12/20/19 12/20/19 12/20/19 05:26 06:02 18:17 WBC RBC Hgb Hct MCHC RDW MCV MCH Lymph % (Auto) [place] % (Auto) [place] # Eos # Lymph # (Auto) [place] # (Auto) Eos # (Auto) Seg Neutrophils % Seg Neuts % (Manual) Baso # (Auto) Lymphocytes % (Manual) Monocytes % (Manual) Eosinophils % (Manual) Basophils % (Manual) Seg Neutrophils # Seg Neutrophils # Man Lymphocytes # (Manual) Monocytes # (Manual) Eosinophils # (Manual) Nucleated RBC % Basophils # (Manual) PT INR APTT Heparin Anti-Xa Level 0.19 L ABG pH POC ABG pO2 ABG pO2 ABG HCO3 ABG O2 Saturation ABG Base Excess POC ABG pCO2 ABG Hemoglobin ABG Oxyhemoglobin ABG Sodium ABG Chloride ABG Glucose Oxyhemoglobin Sodium Potassium Chloride Carbon Dioxide BUN Creatinine Glucose POC Glucose 137 H 128 H Lactic Acid Calcium Phosphorus Magnesium AST ALT Lactate Dehydrogenase Total Bilirubin Direct Bilirubin CK-MB (CK-2) C-Reactive Protein NT-Pro-B Natriuret Pep Total Protein Albumin Arterial Blood Glucose Urine WBC (Auto) Urine Creatinine Digoxin 12/20/19 12/21/19 12/21/19 23:34 05:31 05:31 WBC 12.7 H RBC 3.09 L Hgb 8.9 L Hct 27.4 L MCHC RDW 15.8 H MCV MCH Lymph % (Auto) 12.1 L [place] % (Auto) 7.8 H [place] # Eos # Lymph # (Auto) [place] # (Auto) 1.0 H Eos # (Auto) Seg Neutrophils % 77.1 H Seg Neuts % (Manual) Baso # (Auto) Lymphocytes % (Manual) Monocytes % (Manual) Eosinophils % (Manual) Basophils % (Manual) Seg Neutrophils # 9.8 H Seg Neutrophils # Man Lymphocytes # (Manual) Monocytes # (Manual) Eosinophils # (Manual) Nucleated RBC % Basophils # (Manual) PT INR APTT Heparin Anti-Xa Level ABG pH POC ABG pO2 ABG pO2 ABG HCO3 ABG O2 Saturation ABG Base Excess POC ABG pCO2 ABG Hemoglobin ABG Oxyhemoglobin ABG Sodium ABG Chloride ABG Glucose Oxyhemoglobin Sodium Potassium Chloride 96.9 L Carbon Dioxide 37 H BUN 27 H Creatinine 0.7 L Glucose 140 H POC Glucose 145 H Lactic Acid Calcium Phosphorus Magnesium AST ALT Lactate Dehydrogenase Total Bilirubin Direct Bilirubin CK-MB (CK-2) C-Reactive Protein NT-Pro-B Natriuret Pep Total Protein Albumin Arterial Blood Glucose Urine WBC (Auto) Urine Creatinine Digoxin 12/21/19 12/21/19 12/21/19 05:38 10:13 11:51 WBC RBC Hgb Hct MCHC RDW MCV MCH Lymph % (Auto) [place] % (Auto) [place] # Eos # Lymph # (Auto) [place] # (Auto) Eos # (Auto) Seg Neutrophils % Seg Neuts % (Manual) Baso # (Auto) Lymphocytes % (Manual) Monocytes % (Manual) Eosinophils % (Manual) Basophils % (Manual) Seg Neutrophils # Seg Neutrophils # Man Lymphocytes # (Manual) Monocytes # (Manual) Eosinophils # (Manual) Nucleated RBC % Basophils # (Manual) PT INR APTT 23.9 L Heparin Anti-Xa Level < 0.10 L ABG pH POC ABG pO2 ABG pO2 ABG HCO3 ABG O2 Saturation ABG Base Excess POC ABG pCO2 ABG Hemoglobin ABG Oxyhemoglobin ABG Sodium ABG Chloride ABG Glucose Oxyhemoglobin Sodium Potassium Chloride Carbon Dioxide BUN Creatinine Glucose POC Glucose 151 H 145 H Lactic Acid Calcium Phosphorus Magnesium AST ALT Lactate Dehydrogenase Total Bilirubin Direct Bilirubin CK-MB (CK-2) C-Reactive Protein NT-Pro-B Natriuret Pep Total Protein Albumin Arterial Blood Glucose Urine WBC (Auto) Urine Creatinine Digoxin 12/21/19 12/22/19 12/22/19 17:16 00:01 01:33 WBC RBC Hgb Hct MCHC RDW MCV MCH Lymph % (Auto) [place] % (Auto) [place] # Eos # Lymph # (Auto) [place] # (Auto) Eos # (Auto) Seg Neutrophils % Seg Neuts % (Manual) Baso # (Auto) Lymphocytes % (Manual) Monocytes % (Manual) Eosinophils % (Manual) Basophils % (Manual) Seg Neutrophils # Seg Neutrophils # Man Lymphocytes # (Manual) Monocytes # (Manual) Eosinophils # (Manual) Nucleated RBC % Basophils # (Manual) PT INR APTT Heparin Anti-Xa Level 0.10 L ABG pH POC ABG pO2 ABG pO2 ABG HCO3 ABG O2 Saturation ABG Base Excess POC ABG pCO2 ABG Hemoglobin ABG Oxyhemoglobin ABG Sodium ABG Chloride ABG Glucose Oxyhemoglobin Sodium Potassium Chloride Carbon Dioxide BUN Creatinine Glucose POC Glucose 167 H 179 H Lactic Acid Calcium Phosphorus Magnesium AST ALT Lactate Dehydrogenase Total Bilirubin Direct Bilirubin CK-MB (CK-2) C-Reactive Protein NT-Pro-B Natriuret Pep Total Protein Albumin Arterial Blood Glucose Urine WBC (Auto) Urine Creatinine Digoxin 12/22/19 12/22/19 12/22/19 03:22 05:10 05:10 WBC 13.8 H RBC 3.20 L Hgb 8.9 L Hct 28.1 L MCHC RDW 15.9 H MCV MCH Lymph % (Auto) [place] % (Auto) [place] # Eos # Lymph # (Auto) [place] # (Auto) Eos # (Auto) Seg Neutrophils % Seg Neuts % (Manual) Baso # (Auto) Lymphocytes % (Manual) Monocytes % (Manual) Eosinophils % (Manual) Basophils % (Manual) Seg Neutrophils # Seg Neutrophils # Man Lymphocytes # (Manual) Monocytes # (Manual) Eosinophils # (Manual) Nucleated RBC % Basophils # (Manual) PT INR APTT Heparin Anti-Xa Level ABG pH POC ABG pO2 52.3 L ABG pO2 ABG HCO3 ABG O2 Saturation ABG Base Excess POC ABG pCO2 52.9 H ABG Hemoglobin 10.7 L ABG Oxyhemoglobin 84 L ABG Sodium ABG Chloride ABG Glucose Oxyhemoglobin Sodium Potassium Chloride 96.6 L Carbon Dioxide BUN 25 H Creatinine 0.7 L Glucose 129 H POC Glucose Lactic Acid Calcium Phosphorus Magnesium AST ALT Lactate Dehydrogenase Total Bilirubin Direct Bilirubin CK-MB (CK-2) C-Reactive Protein NT-Pro-B Natriuret Pep Total Protein Albumin Arterial Blood Glucose Urine WBC (Auto) Urine Creatinine Digoxin 12/22/19 12/22/19 12/22/19 05:18 12:32 12:43 WBC RBC Hgb Hct MCHC RDW MCV MCH Lymph % (Auto) [place] % (Auto) [place] # Eos # Lymph # (Auto) [place] # (Auto) Eos # (Auto) Seg Neutrophils % Seg Neuts % (Manual) Baso # (Auto) Lymphocytes % (Manual) Monocytes % (Manual) Eosinophils % (Manual) Basophils % (Manual) Seg Neutrophils # Seg Neutrophils # Man Lymphocytes # (Manual) Monocytes # (Manual) Eosinophils # (Manual) Nucleated RBC % Basophils # (Manual) PT INR APTT Heparin Anti-Xa Level 0.18 L ABG pH POC ABG pO2 ABG pO2 ABG HCO3 ABG O2 Saturation ABG Base Excess POC ABG pCO2 ABG Hemoglobin ABG Oxyhemoglobin ABG Sodium ABG Chloride ABG Glucose Oxyhemoglobin Sodium Potassium Chloride Carbon Dioxide BUN Creatinine Glucose POC Glucose 131 H 208 H Lactic Acid Calcium Phosphorus Magnesium AST ALT Lactate Dehydrogenase Total Bilirubin Direct Bilirubin CK-MB (CK-2) C-Reactive Protein NT-Pro-B Natriuret Pep Total Protein Albumin Arterial Blood Glucose Urine WBC (Auto) Urine Creatinine Digoxin 12/22/19 12/22/19 12/23/19 17:44 23:20 03:51 WBC 15.2 H RBC 3.43 L Hgb 9.6 L Hct 30.3 L MCHC RDW 15.9 H MCV MCH Lymph % (Auto) [place] % (Auto) [place] # Eos # Lymph # (Auto) [place] # (Auto) Eos # (Auto) Seg Neutrophils % Seg Neuts % (Manual) Baso # (Auto) Lymphocytes % (Manual) Monocytes % (Manual) Eosinophils % (Manual) Basophils % (Manual) Seg Neutrophils # Seg Neutrophils # Man Lymphocytes # (Manual) Monocytes # (Manual) Eosinophils # (Manual) Nucleated RBC % Basophils # (Manual) PT INR APTT Heparin Anti-Xa Level ABG pH POC ABG pO2 ABG pO2 ABG HCO3 ABG O2 Saturation ABG Base Excess POC ABG pCO2 ABG Hemoglobin ABG Oxyhemoglobin ABG Sodium ABG Chloride ABG Glucose Oxyhemoglobin Sodium Potassium Chloride Carbon Dioxide BUN Creatinine Glucose POC Glucose 209 H 119 H Lactic Acid Calcium Phosphorus Magnesium AST ALT Lactate Dehydrogenase Total Bilirubin Direct Bilirubin CK-MB (CK-2) C-Reactive Protein NT-Pro-B Natriuret Pep Total Protein Albumin Arterial Blood Glucose Urine WBC (Auto) Urine Creatinine Digoxin 12/23/19 12/23/19 12/23/19 03:51 05:31 12:09 WBC RBC Hgb Hct MCHC RDW MCV MCH Lymph % (Auto) [place] % (Auto) [place] # Eos # Lymph # (Auto) [place] # (Auto) Eos # (Auto) Seg Neutrophils % Seg Neuts % (Manual) Baso # (Auto) Lymphocytes % (Manual) Monocytes % (Manual) Eosinophils % (Manual) Basophils % (Manual) Seg Neutrophils # Seg Neutrophils # Man Lymphocytes # (Manual) Monocytes # (Manual) Eosinophils # (Manual) Nucleated RBC % Basophils # (Manual) PT INR APTT Heparin Anti-Xa Level ABG pH POC ABG pO2 ABG pO2 ABG HCO3 ABG O2 Saturation ABG Base Excess POC ABG pCO2 ABG Hemoglobin ABG Oxyhemoglobin ABG Sodium ABG Chloride ABG Glucose Oxyhemoglobin Sodium Potassium Chloride 97.2 L Carbon Dioxide 31 H BUN 23 H Creatinine 0.6 L Glucose 153 H POC Glucose 149 H 144 H Lactic Acid Calcium Phosphorus Magnesium AST ALT Lactate Dehydrogenase Total Bilirubin Direct Bilirubin CK-MB (CK-2) C-Reactive Protein NT-Pro-B Natriuret Pep Total Protein Albumin Arterial Blood Glucose Urine WBC (Auto) Urine Creatinine Digoxin 12/23/19 12/23/19 12/23/19 15:30 17:49 23:31 WBC RBC Hgb Hct MCHC RDW MCV MCH Lymph % (Auto) [place] % (Auto) [place] # Eos # Lymph # (Auto) [place] # (Auto) Eos # (Auto) Seg Neutrophils % Seg Neuts % (Manual) Baso # (Auto) Lymphocytes % (Manual) Monocytes % (Manual) Eosinophils % (Manual) Basophils % (Manual) Seg Neutrophils # Seg Neutrophils # Man Lymphocytes # (Manual) Monocytes # (Manual) Eosinophils # (Manual) Nucleated RBC % Basophils # (Manual) PT INR APTT Heparin Anti-Xa Level 0.21 L ABG pH POC ABG pO2 ABG pO2 ABG HCO3 ABG O2 Saturation ABG Base Excess POC ABG pCO2 ABG Hemoglobin ABG Oxyhemoglobin ABG Sodium ABG Chloride ABG Glucose Oxyhemoglobin Sodium Potassium Chloride Carbon Dioxide BUN Creatinine Glucose POC Glucose 192 H 151 H Lactic Acid Calcium Phosphorus Magnesium AST ALT Lactate Dehydrogenase Total Bilirubin Direct Bilirubin CK-MB (CK-2) C-Reactive Protein NT-Pro-B Natriuret Pep Total Protein Albumin Arterial Blood Glucose Urine WBC (Auto) Urine Creatinine Digoxin 12/24/19 12/24/19 12/24/19 05:34 12:13 16:50 WBC RBC Hgb Hct MCHC RDW MCV MCH Lymph % (Auto) [place] % (Auto) [place] # Eos # Lymph # (Auto) [place] # (Auto) Eos # (Auto) Seg Neutrophils % Seg Neuts % (Manual) Baso # (Auto) Lymphocytes % (Manual) Monocytes % (Manual) Eosinophils % (Manual) Basophils % (Manual) Seg Neutrophils # Seg Neutrophils # Man Lymphocytes # (Manual) Monocytes # (Manual) Eosinophils # (Manual) Nucleated RBC % Basophils # (Manual) PT INR APTT Heparin Anti-Xa Level 0.16 L ABG pH POC ABG pO2 ABG pO2 ABG HCO3 ABG O2 Saturation ABG Base Excess POC ABG pCO2 ABG Hemoglobin ABG Oxyhemoglobin ABG Sodium ABG Chloride ABG Glucose Oxyhemoglobin Sodium Potassium Chloride Carbon Dioxide BUN Creatinine Glucose POC Glucose 145 H 124 H Lactic Acid Calcium Phosphorus Magnesium AST ALT Lactate Dehydrogenase Total Bilirubin Direct Bilirubin CK-MB (CK-2) C-Reactive Protein NT-Pro-B Natriuret Pep Total Protein Albumin Arterial Blood Glucose Urine WBC (Auto) Urine Creatinine Digoxin 12/24/19 12/25/19 12/25/19 17:53 00:14 04:18 WBC 12.9 H RBC 3.30 L Hgb 9.1 L Hct 28.8 L MCHC RDW 16.4 H MCV MCH Lymph % (Auto) [place] % (Auto) 7.8 H [place] # Eos # Lymph # (Auto) [place] # (Auto) 1.0 H Eos # (Auto) Seg Neutrophils % 75.5 H Seg Neuts % (Manual) Baso # (Auto) Lymphocytes % (Manual) Monocytes % (Manual) Eosinophils % (Manual) Basophils % (Manual) Seg Neutrophils # 9.7 H Seg Neutrophils # Man Lymphocytes # (Manual) Monocytes # (Manual) Eosinophils # (Manual) Nucleated RBC % Basophils # (Manual) PT INR APTT Heparin Anti-Xa Level ABG pH POC ABG pO2 ABG pO2 ABG HCO3 ABG O2 Saturation ABG Base Excess POC ABG pCO2 ABG Hemoglobin ABG Oxyhemoglobin ABG Sodium ABG Chloride ABG Glucose Oxyhemoglobin Sodium Potassium Chloride Carbon Dioxide BUN Creatinine Glucose POC Glucose 164 H 148 H Lactic Acid Calcium Phosphorus Magnesium AST ALT Lactate Dehydrogenase Total Bilirubin Direct Bilirubin CK-MB (CK-2) C-Reactive Protein NT-Pro-B Natriuret Pep Total Protein Albumin Arterial Blood Glucose Urine WBC (Auto) Urine Creatinine Digoxin 12/25/19 12/25/19 12/25/19 04:18 05:38 11:44 WBC RBC Hgb Hct MCHC RDW MCV MCH Lymph % (Auto) [place] % (Auto) [place] # Eos # Lymph # (Auto) [place] # (Auto) Eos # (Auto) Seg Neutrophils % Seg Neuts % (Manual) Baso # (Auto) Lymphocytes % (Manual) Monocytes % (Manual) Eosinophils % (Manual) Basophils % (Manual) Seg Neutrophils # Seg Neutrophils # Man Lymphocytes # (Manual) Monocytes # (Manual) Eosinophils # (Manual) Nucleated RBC % Basophils # (Manual) PT INR APTT Heparin Anti-Xa Level ABG pH POC ABG pO2 ABG pO2 ABG HCO3 ABG O2 Saturation ABG Base Excess POC ABG pCO2 ABG Hemoglobin ABG Oxyhemoglobin ABG Sodium ABG Chloride ABG Glucose Oxyhemoglobin Sodium Potassium Chloride Carbon Dioxide 33 H BUN 27 H Creatinine 0.6 L Glucose 132 H POC Glucose 152 H 166 H Lactic Acid Calcium Phosphorus Magnesium AST ALT Lactate Dehydrogenase Total Bilirubin Direct Bilirubin CK-MB (CK-2) C-Reactive Protein NT-Pro-B Natriuret Pep Total Protein Albumin Arterial Blood Glucose Urine WBC (Auto) Urine Creatinine Digoxin 12/25/19 12/26/19 12/26/19 18:29 00:17 00:18 WBC RBC Hgb Hct MCHC RDW MCV MCH Lymph % (Auto) [place] % (Auto) [place] # Eos # Lymph # (Auto) [place] # (Auto) Eos # (Auto) Seg Neutrophils % Seg Neuts % (Manual) Baso # (Auto) Lymphocytes % (Manual) Monocytes % (Manual) Eosinophils % (Manual) Basophils % (Manual) Seg Neutrophils # Seg Neutrophils # Man Lymphocytes # (Manual) Monocytes # (Manual) Eosinophils # (Manual) Nucleated RBC % Basophils # (Manual) PT INR APTT Heparin Anti-Xa Level ABG pH POC ABG pO2 ABG pO2 ABG HCO3 ABG O2 Saturation ABG Base Excess POC ABG pCO2 ABG Hemoglobin ABG Oxyhemoglobin ABG Sodium ABG Chloride ABG Glucose Oxyhemoglobin Sodium Potassium Chloride 97.8 L Carbon Dioxide BUN 25 H Creatinine 0.6 L Glucose 140 H POC Glucose 194 H 151 H Lactic Acid Calcium Phosphorus Magnesium AST ALT Lactate Dehydrogenase Total Bilirubin Direct Bilirubin CK-MB (CK-2) C-Reactive Protein NT-Pro-B Natriuret Pep Total Protein Albumin Arterial Blood Glucose Urine WBC (Auto) Urine Creatinine Digoxin 12/26/19 12/26/19 12/26/19 05:36 11:41 17:50 WBC RBC Hgb Hct MCHC RDW MCV MCH Lymph % (Auto) [place] % (Auto) [place] # Eos # Lymph # (Auto) [place] # (Auto) Eos # (Auto) Seg Neutrophils % Seg Neuts % (Manual) Baso # (Auto) Lymphocytes % (Manual) Monocytes % (Manual) Eosinophils % (Manual) Basophils % (Manual) Seg Neutrophils # Seg Neutrophils # Man Lymphocytes # (Manual) Monocytes # (Manual) Eosinophils # (Manual) Nucleated RBC % Basophils # (Manual) PT INR APTT Heparin Anti-Xa Level ABG pH POC ABG pO2 ABG pO2 ABG HCO3 ABG O2 Saturation ABG Base Excess POC ABG pCO2 ABG Hemoglobin ABG Oxyhemoglobin ABG Sodium ABG Chloride ABG Glucose Oxyhemoglobin Sodium Potassium Chloride Carbon Dioxide BUN Creatinine Glucose POC Glucose 156 H 148 H 139 H Lactic Acid Calcium Phosphorus Magnesium AST ALT Lactate Dehydrogenase Total Bilirubin Direct Bilirubin CK-MB (CK-2) C-Reactive Protein NT-Pro-B Natriuret Pep Total Protein Albumin Arterial Blood Glucose Urine WBC (Auto) Urine Creatinine Digoxin 12/26/19 12/27/19 12/27/19 23:19 05:34 12:02 WBC RBC Hgb Hct MCHC RDW MCV MCH Lymph % (Auto) [place] % (Auto) [place] # Eos # Lymph # (Auto) [place] # (Auto) Eos # (Auto) Seg Neutrophils % Seg Neuts % (Manual) Baso # (Auto) Lymphocytes % (Manual) Monocytes % (Manual) Eosinophils % (Manual) Basophils % (Manual) Seg Neutrophils # Seg Neutrophils # Man Lymphocytes # (Manual) Monocytes # (Manual) Eosinophils # (Manual) Nucleated RBC % Basophils # (Manual) PT INR APTT Heparin Anti-Xa Level ABG pH POC ABG pO2 ABG pO2 ABG HCO3 ABG O2 Saturation ABG Base Excess POC ABG pCO2 ABG Hemoglobin ABG Oxyhemoglobin ABG Sodium ABG Chloride ABG Glucose Oxyhemoglobin Sodium Potassium Chloride Carbon Dioxide BUN Creatinine Glucose POC Glucose 161 H 145 H 157 H Lactic Acid Calcium Phosphorus Magnesium AST ALT Lactate Dehydrogenase Total Bilirubin Direct Bilirubin CK-MB (CK-2) C-Reactive Protein NT-Pro-B Natriuret Pep Total Protein Albumin Arterial Blood Glucose Urine WBC (Auto) Urine Creatinine Digoxin 12/27/19 12/27/19 12/27/19 17:35 20:11 23:00 WBC RBC Hgb Hct MCHC RDW MCV MCH Lymph % (Auto) [place] % (Auto) [place] # Eos # Lymph # (Auto) [place] # (Auto) Eos # (Auto) Seg Neutrophils % Seg Neuts % (Manual) Baso # (Auto) Lymphocytes % (Manual) Monocytes % (Manual) Eosinophils % (Manual) Basophils % (Manual) Seg Neutrophils # Seg Neutrophils # Man Lymphocytes # (Manual) Monocytes # (Manual) Eosinophils # (Manual) Nucleated RBC % Basophils # (Manual) PT INR APTT Heparin Anti-Xa Level 0.19 L ABG pH POC ABG pO2 ABG pO2 ABG HCO3 ABG O2 Saturation ABG Base Excess POC ABG pCO2 ABG Hemoglobin ABG Oxyhemoglobin ABG Sodium ABG Chloride ABG Glucose Oxyhemoglobin Sodium Potassium Chloride Carbon Dioxide BUN Creatinine Glucose POC Glucose 158 H 155 H Lactic Acid Calcium Phosphorus Magnesium AST ALT Lactate Dehydrogenase Total Bilirubin Direct Bilirubin CK-MB (CK-2) C-Reactive Protein NT-Pro-B Natriuret Pep Total Protein Albumin Arterial Blood Glucose Urine WBC (Auto) Urine Creatinine Digoxin 12/27/19 12/28/19 12/28/19 23:45 02:41 02:41 WBC 13.0 H RBC 3.48 L Hgb 9.5 L Hct 30.6 L MCHC 31 L RDW 16.6 H MCV MCH 27 L Lymph % (Auto) 13.0 L [place] % (Auto) 8.0 H [place] # Eos # Lymph # (Auto) [place] # (Auto) 1.0 H Eos # (Auto) Seg Neutrophils % 76.3 H Seg Neuts % (Manual) Baso # (Auto) Lymphocytes % (Manual) Monocytes % (Manual) Eosinophils % (Manual) Basophils % (Manual) Seg Neutrophils # 9.9 H Seg Neutrophils # Man Lymphocytes # (Manual) Monocytes # (Manual) Eosinophils # (Manual) Nucleated RBC % Basophils # (Manual) PT INR APTT Heparin Anti-Xa Level ABG pH POC ABG pO2 ABG pO2 ABG HCO3 ABG O2 Saturation ABG Base Excess POC ABG pCO2 ABG Hemoglobin ABG Oxyhemoglobin ABG Sodium ABG Chloride ABG Glucose Oxyhemoglobin Sodium Potassium Chloride Carbon Dioxide BUN 22 H Creatinine 0.6 L Glucose 101 H POC Glucose 130 H Lactic Acid Calcium Phosphorus Magnesium AST ALT Lactate Dehydrogenase Total Bilirubin Direct Bilirubin CK-MB (CK-2) C-Reactive Protein NT-Pro-B Natriuret Pep Total Protein Albumin Arterial Blood Glucose Urine WBC (Auto) Urine Creatinine Digoxin 12/28/19 12/28/19 12/28/19 06:00 12:34 18:13 WBC RBC Hgb Hct MCHC RDW MCV MCH Lymph % (Auto) [place] % (Auto) [place] # Eos # Lymph # (Auto) [place] # (Auto) Eos # (Auto) Seg Neutrophils % Seg Neuts % (Manual) Baso # (Auto) Lymphocytes % (Manual) Monocytes % (Manual) Eosinophils % (Manual) Basophils % (Manual) Seg Neutrophils # Seg Neutrophils # Man Lymphocytes # (Manual) Monocytes # (Manual) Eosinophils # (Manual) Nucleated RBC % Basophils # (Manual) PT INR APTT Heparin Anti-Xa Level ABG pH POC ABG pO2 ABG pO2 ABG HCO3 ABG O2 Saturation ABG Base Excess POC ABG pCO2 ABG Hemoglobin ABG Oxyhemoglobin ABG Sodium ABG Chloride ABG Glucose Oxyhemoglobin Sodium Potassium Chloride Carbon Dioxide BUN Creatinine Glucose POC Glucose 150 H 161 H 128 H Lactic Acid Calcium Phosphorus Magnesium AST ALT Lactate Dehydrogenase Total Bilirubin Direct Bilirubin CK-MB (CK-2) C-Reactive Protein NT-Pro-B Natriuret Pep Total Protein Albumin Arterial Blood Glucose Urine WBC (Auto) Urine Creatinine Digoxin 12/28/19 12/29/19 12/29/19 23:36 05:21 11:40 WBC RBC Hgb Hct MCHC RDW MCV MCH Lymph % (Auto) [place] % (Auto) [place] # Eos # Lymph # (Auto) [place] # (Auto) Eos # (Auto) Seg Neutrophils % Seg Neuts % (Manual) Baso # (Auto) Lymphocytes % (Manual) Monocytes % (Manual) Eosinophils % (Manual) Basophils % (Manual) Seg Neutrophils # Seg Neutrophils # Man Lymphocytes # (Manual) Monocytes # (Manual) Eosinophils # (Manual) Nucleated RBC % Basophils # (Manual) PT INR APTT Heparin Anti-Xa Level ABG pH POC ABG pO2 ABG pO2 ABG HCO3 ABG O2 Saturation ABG Base Excess POC ABG pCO2 ABG Hemoglobin ABG Oxyhemoglobin ABG Sodium ABG Chloride ABG Glucose Oxyhemoglobin Sodium Potassium Chloride Carbon Dioxide BUN Creatinine Glucose POC Glucose 137 H 136 H 166 H Lactic Acid Calcium Phosphorus Magnesium AST ALT Lactate Dehydrogenase Total Bilirubin Direct Bilirubin CK-MB (CK-2) C-Reactive Protein NT-Pro-B Natriuret Pep Total Protein Albumin Arterial Blood Glucose Urine WBC (Auto) Urine Creatinine Digoxin 12/29/19 12/29/19 12/29/19 17:23 19:21 23:38 WBC RBC Hgb Hct MCHC RDW MCV MCH Lymph % (Auto) [place] % (Auto) [place] # Eos # Lymph # (Auto) [place] # (Auto) Eos # (Auto) Seg Neutrophils % Seg Neuts % (Manual) Baso # (Auto) Lymphocytes % (Manual) Monocytes % (Manual) Eosinophils % (Manual) Basophils % (Manual) Seg Neutrophils # Seg Neutrophils # Man Lymphocytes # (Manual) Monocytes # (Manual) Eosinophils # (Manual) Nucleated RBC % Basophils # (Manual) PT INR APTT Heparin Anti-Xa Level 0.20 L ABG pH POC ABG pO2 ABG pO2 ABG HCO3 ABG O2 Saturation ABG Base Excess POC ABG pCO2 ABG Hemoglobin ABG Oxyhemoglobin ABG Sodium ABG Chloride ABG Glucose Oxyhemoglobin Sodium Potassium Chloride Carbon Dioxide BUN Creatinine Glucose POC Glucose 144 H 141 H Lactic Acid Calcium Phosphorus Magnesium AST ALT Lactate Dehydrogenase Total Bilirubin Direct Bilirubin CK-MB (CK-2) C-Reactive Protein NT-Pro-B Natriuret Pep Total Protein Albumin Arterial Blood Glucose Urine WBC (Auto) Urine Creatinine Digoxin 12/30/19 12/30/19 12/30/19 03:58 03:58 04:59 WBC RBC 3.54 L Hgb 9.8 L Hct 30.7 L MCHC RDW 16.8 H MCV MCH Lymph % (Auto) [place] % (Auto) [place] # Eos # Lymph # (Auto) [place] # (Auto) Eos # (Auto) Seg Neutrophils % Seg Neuts % (Manual) Baso # (Auto) Lymphocytes % (Manual) Monocytes % (Manual) Eosinophils % (Manual) Basophils % (Manual) Seg Neutrophils # Seg Neutrophils # Man Lymphocytes # (Manual) Monocytes # (Manual) Eosinophils # (Manual) Nucleated RBC % Basophils # (Manual) PT INR APTT Heparin Anti-Xa Level ABG pH POC ABG pO2 ABG pO2 ABG HCO3 29.8 H ABG O2 Saturation ABG Base Excess 4.8 H POC ABG pCO2 ABG Hemoglobin 11.2 L ABG Oxyhemoglobin ABG Sodium ABG Chloride ABG Glucose Oxyhemoglobin 93.8 L Sodium Potassium Chloride 97.8 L Carbon Dioxide BUN 26 H Creatinine Glucose 168 H POC Glucose Lactic Acid Calcium Phosphorus Magnesium AST ALT Lactate Dehydrogenase Total Bilirubin Direct Bilirubin CK-MB (CK-2) C-Reactive Protein NT-Pro-B Natriuret Pep Total Protein Albumin Arterial Blood Glucose Urine WBC (Auto) Urine Creatinine Digoxin 12/30/19 12/30/19 12/30/19 05:45 11:34 17:28 WBC RBC Hgb Hct MCHC RDW MCV MCH Lymph % (Auto) [place] % (Auto) [place] # Eos # Lymph # (Auto) [place] # (Auto) Eos # (Auto) Seg Neutrophils % Seg Neuts % (Manual) Baso # (Auto) Lymphocytes % (Manual) Monocytes % (Manual) Eosinophils % (Manual) Basophils % (Manual) Seg Neutrophils # Seg Neutrophils # Man Lymphocytes # (Manual) Monocytes # (Manual) Eosinophils # (Manual) Nucleated RBC % Basophils # (Manual) PT INR APTT Heparin Anti-Xa Level ABG pH POC ABG pO2 ABG pO2 ABG HCO3 ABG O2 Saturation ABG Base Excess POC ABG pCO2 ABG Hemoglobin ABG Oxyhemoglobin ABG Sodium ABG Chloride ABG Glucose Oxyhemoglobin Sodium Potassium Chloride Carbon Dioxide BUN Creatinine Glucose POC Glucose 163 H 180 H 150 H Lactic Acid Calcium Phosphorus Magnesium AST ALT Lactate Dehydrogenase Total Bilirubin Direct Bilirubin CK-MB (CK-2) C-Reactive Protein NT-Pro-B Natriuret Pep Total Protein Albumin Arterial Blood Glucose Urine WBC (Auto) Urine Creatinine Digoxin 12/30/19 12/31/19 12/31/19 23:43 04:55 05:07 WBC RBC Hgb Hct MCHC RDW MCV MCH Lymph % (Auto) [place] % (Auto) [place] # Eos # Lymph # (Auto) [place] # (Auto) Eos # (Auto) Seg Neutrophils % Seg Neuts % (Manual) Baso # (Auto) Lymphocytes % (Manual) Monocytes % (Manual) Eosinophils % (Manual) Basophils % (Manual) Seg Neutrophils # Seg Neutrophils # Man Lymphocytes # (Manual) Monocytes # (Manual) Eosinophils # (Manual) Nucleated RBC % Basophils # (Manual) PT INR APTT Heparin Anti-Xa Level ABG pH POC ABG pO2 ABG pO2 ABG HCO3 ABG O2 Saturation ABG Base Excess POC ABG pCO2 ABG Hemoglobin ABG Oxyhemoglobin ABG Sodium ABG Chloride ABG Glucose Oxyhemoglobin Sodium Potassium 5.6 H D Chloride Carbon Dioxide BUN 33 H Creatinine Glucose 131 H POC Glucose 142 H 134 H Lactic Acid Calcium Phosphorus Magnesium AST ALT Lactate Dehydrogenase Total Bilirubin Direct Bilirubin CK-MB (CK-2) C-Reactive Protein NT-Pro-B Natriuret Pep Total Protein Albumin Arterial Blood Glucose Urine WBC (Auto) Urine Creatinine Digoxin 12/31/19 12/31/19 12/31/19 11:30 17:19 17:36 WBC RBC Hgb Hct MCHC RDW MCV MCH Lymph % (Auto) [place] % (Auto) [place] # Eos # Lymph # (Auto) [place] # (Auto) Eos # (Auto) Seg Neutrophils % Seg Neuts % (Manual) Baso # (Auto) Lymphocytes % (Manual) Monocytes % (Manual) Eosinophils % (Manual) Basophils % (Manual) Seg Neutrophils # Seg Neutrophils # Man Lymphocytes # (Manual) Monocytes # (Manual) Eosinophils # (Manual) Nucleated RBC % Basophils # (Manual) PT INR APTT Heparin Anti-Xa Level ABG pH POC ABG pO2 ABG pO2 ABG HCO3 ABG O2 Saturation ABG Base Excess POC ABG pCO2 ABG Hemoglobin ABG Oxyhemoglobin ABG Sodium ABG Chloride ABG Glucose Oxyhemoglobin Sodium Potassium Chloride Carbon Dioxide BUN 35 H Creatinine Glucose 156 H POC Glucose 158 H 181 H Lactic Acid Calcium Phosphorus Magnesium AST ALT Lactate Dehydrogenase Total Bilirubin Direct Bilirubin CK-MB (CK-2) C-Reactive Protein NT-Pro-B Natriuret Pep Total Protein Albumin Arterial Blood Glucose Urine WBC (Auto) Urine Creatinine Digoxin 12/31/19 12/31/19 12/31/19 18:16 19:41 21:53 WBC RBC Hgb Hct MCHC RDW MCV MCH Lymph % (Auto) [place] % (Auto) [place] # Eos # Lymph # (Auto) [place] # (Auto) Eos # (Auto) Seg Neutrophils % Seg Neuts % (Manual) Baso # (Auto) Lymphocytes % (Manual) Monocytes % (Manual) Eosinophils % (Manual) Basophils % (Manual) Seg Neutrophils # Seg Neutrophils # Man Lymphocytes # (Manual) Monocytes # (Manual) Eosinophils # (Manual) Nucleated RBC % Basophils # (Manual) PT INR APTT Heparin Anti-Xa Level 0.20 L ABG pH POC ABG pO2 ABG pO2 ABG HCO3 ABG O2 Saturation ABG Base Excess POC ABG pCO2 ABG Hemoglobin ABG Oxyhemoglobin ABG Sodium ABG Chloride ABG Glucose Oxyhemoglobin Sodium Potassium Chloride Carbon Dioxide BUN 34 H Creatinine Glucose 169 H POC Glucose 141 H Lactic Acid Calcium Phosphorus Magnesium AST ALT Lactate Dehydrogenase Total Bilirubin Direct Bilirubin CK-MB (CK-2) C-Reactive Protein NT-Pro-B Natriuret Pep Total Protein Albumin Arterial Blood Glucose Urine WBC (Auto) Urine Creatinine Digoxin 12/31/19 01/01/20 01/01/20 23:51 05:17 10:40 WBC RBC Hgb Hct MCHC RDW MCV MCH Lymph % (Auto) [place] % (Auto) [place] # Eos # Lymph # (Auto) [place] # (Auto) Eos # (Auto) Seg Neutrophils % Seg Neuts % (Manual) Baso # (Auto) Lymphocytes % (Manual) Monocytes % (Manual) Eosinophils % (Manual) Basophils % (Manual) Seg Neutrophils # Seg Neutrophils # Man Lymphocytes # (Manual) Monocytes # (Manual) Eosinophils # (Manual) Nucleated RBC % Basophils # (Manual) PT INR APTT Heparin Anti-Xa Level ABG pH POC ABG pO2 ABG pO2 ABG HCO3 ABG O2 Saturation ABG Base Excess POC ABG pCO2 ABG Hemoglobin ABG Oxyhemoglobin ABG Sodium ABG Chloride ABG Glucose Oxyhemoglobin Sodium Potassium Chloride Carbon Dioxide BUN 31 H Creatinine 0.7 L Glucose 137 H POC Glucose 131 H 155 H Lactic Acid Calcium Phosphorus Magnesium AST 73 H ALT 97 H Lactate Dehydrogenase Total Bilirubin Direct Bilirubin CK-MB (CK-2) C-Reactive Protein NT-Pro-B Natriuret Pep 3866 H Total Protein Albumin 2.8 L Arterial Blood Glucose Urine WBC (Auto) Urine Creatinine Digoxin 01/01/20 01/01/20 01/01/20 12:26 15:33 17:53 WBC 14.3 H RBC 3.35 L Hgb 9.1 L Hct 28.8 L MCHC RDW 17.0 H MCV MCH 27 L Lymph % (Auto) 7.0 L [place] % (Auto) 7.6 H [place] # Eos # Lymph # (Auto) 1.0 L [place] # (Auto) 1.1 H Eos # (Auto) Seg Neutrophils % 83.3 H Seg Neuts % (Manual) Baso # (Auto) Lymphocytes % (Manual) Monocytes % (Manual) Eosinophils % (Manual) Basophils % (Manual) Seg Neutrophils # 12.0 H Seg Neutrophils # Man Lymphocytes # (Manual) Monocytes # (Manual) Eosinophils # (Manual) Nucleated RBC % Basophils # (Manual) PT INR APTT Heparin Anti-Xa Level ABG pH POC ABG pO2 ABG pO2 ABG HCO3 ABG O2 Saturation ABG Base Excess POC ABG pCO2 ABG Hemoglobin ABG Oxyhemoglobin ABG Sodium ABG Chloride ABG Glucose Oxyhemoglobin Sodium Potassium Chloride Carbon Dioxide BUN Creatinine Glucose POC Glucose 128 H 128 H Lactic Acid Calcium Phosphorus Magnesium AST ALT Lactate Dehydrogenase Total Bilirubin Direct Bilirubin CK-MB (CK-2) C-Reactive Protein NT-Pro-B Natriuret Pep Total Protein Albumin Arterial Blood Glucose Urine WBC (Auto) Urine Creatinine Digoxin 01/01/20 01/02/20 01/02/20 23:04 05:39 07:00 WBC RBC Hgb Hct MCHC RDW MCV MCH Lymph % (Auto) [place] % (Auto) [place] # Eos # Lymph # (Auto) [place] # (Auto) Eos # (Auto) Seg Neutrophils % Seg Neuts % (Manual) Baso # (Auto) Lymphocytes % (Manual) Monocytes % (Manual) Eosinophils % (Manual) Basophils % (Manual) Seg Neutrophils # Seg Neutrophils # Man Lymphocytes # (Manual) Monocytes # (Manual) Eosinophils # (Manual) Nucleated RBC % Basophils # (Manual) PT INR APTT Heparin Anti-Xa Level 0.13 L ABG pH POC ABG pO2 ABG pO2 ABG HCO3 ABG O2 Saturation ABG Base Excess POC ABG pCO2 ABG Hemoglobin ABG Oxyhemoglobin ABG Sodium ABG Chloride ABG Glucose Oxyhemoglobin Sodium Potassium Chloride Carbon Dioxide BUN Creatinine Glucose POC Glucose 120 H 169 H Lactic Acid Calcium Phosphorus Magnesium AST ALT Lactate Dehydrogenase Total Bilirubin Direct Bilirubin CK-MB (CK-2) C-Reactive Protein NT-Pro-B Natriuret Pep Total Protein Albumin Arterial Blood Glucose Urine WBC (Auto) Urine Creatinine Digoxin 01/02/20 01/02/20 01/02/20 12:15 14:06 17:58 WBC RBC Hgb Hct MCHC RDW MCV MCH Lymph % (Auto) [place] % (Auto) [place] # Eos # Lymph # (Auto) [place] # (Auto) Eos # (Auto) Seg Neutrophils % Seg Neuts % (Manual) Baso # (Auto) Lymphocytes % (Manual) Monocytes % (Manual) Eosinophils % (Manual) Basophils % (Manual) Seg Neutrophils # Seg Neutrophils # Man Lymphocytes # (Manual) Monocytes # (Manual) Eosinophils # (Manual) Nucleated RBC % Basophils # (Manual) PT INR APTT Heparin Anti-Xa Level < 0.10 L ABG pH POC ABG pO2 ABG pO2 ABG HCO3 ABG O2 Saturation ABG Base Excess POC ABG pCO2 ABG Hemoglobin ABG Oxyhemoglobin ABG Sodium ABG Chloride ABG Glucose Oxyhemoglobin Sodium Potassium Chloride Carbon Dioxide BUN Creatinine Glucose POC Glucose 190 H 198 H Lactic Acid Calcium Phosphorus Magnesium AST ALT Lactate Dehydrogenase Total Bilirubin Direct Bilirubin CK-MB (CK-2) C-Reactive Protein NT-Pro-B Natriuret Pep Total Protein Albumin Arterial Blood Glucose Urine WBC (Auto) Urine Creatinine Digoxin 01/02/20 01/02/20 01/03/20 21:43 23:33 05:42 WBC RBC Hgb Hct MCHC RDW MCV MCH Lymph % (Auto) [place] % (Auto) [place] # Eos # Lymph # (Auto) [place] # (Auto) Eos # (Auto) Seg Neutrophils % Seg Neuts % (Manual) Baso # (Auto) Lymphocytes % (Manual) Monocytes % (Manual) Eosinophils % (Manual) Basophils % (Manual) Seg Neutrophils # Seg Neutrophils # Man Lymphocytes # (Manual) Monocytes # (Manual) Eosinophils # (Manual) Nucleated RBC % Basophils # (Manual) PT INR APTT Heparin Anti-Xa Level 0.10 L ABG pH POC ABG pO2 ABG pO2 ABG HCO3 ABG O2 Saturation ABG Base Excess POC ABG pCO2 ABG Hemoglobin ABG Oxyhemoglobin ABG Sodium ABG Chloride ABG Glucose Oxyhemoglobin Sodium Potassium Chloride Carbon Dioxide BUN Creatinine Glucose POC Glucose 180 H 163 H Lactic Acid Calcium Phosphorus Magnesium AST ALT Lactate Dehydrogenase Total Bilirubin Direct Bilirubin CK-MB (CK-2) C-Reactive Protein NT-Pro-B Natriuret Pep Total Protein Albumin Arterial Blood Glucose Urine WBC (Auto) Urine Creatinine Digoxin 01/03/20 01/03/20 01/03/20 06:50 07:25 07:45 WBC 12.1 H RBC 3.35 L Hgb 9.0 L Hct 28.9 L MCHC 31 L RDW 16.6 H MCV MCH 27 L Lymph % (Auto) 13.0 L [place] % (Auto) 8.6 H [place] # Eos # Lymph # (Auto) [place] # (Auto) 1.0 H Eos # (Auto) Seg Neutrophils % 75.9 H Seg Neuts % (Manual) Baso # (Auto) Lymphocytes % (Manual) Monocytes % (Manual) Eosinophils % (Manual) Basophils % (Manual) Seg Neutrophils # 9.2 H Seg Neutrophils # Man Lymphocytes # (Manual) Monocytes # (Manual) Eosinophils # (Manual) Nucleated RBC % Basophils # (Manual) PT INR APTT Heparin Anti-Xa Level 0.29 L ABG pH POC ABG pO2 ABG pO2 ABG HCO3 ABG O2 Saturation ABG Base Excess POC ABG pCO2 ABG Hemoglobin ABG Oxyhemoglobin ABG Sodium ABG Chloride ABG Glucose Oxyhemoglobin Sodium Potassium 3.3 L D Chloride Carbon Dioxide 35 H D BUN 23 H Creatinine 0.6 L Glucose 149 H POC Glucose Lactic Acid Calcium Phosphorus Magnesium AST ALT 88 H Lactate Dehydrogenase Total Bilirubin Direct Bilirubin CK-MB (CK-2) C-Reactive Protein NT-Pro-B Natriuret Pep Total Protein 6.2 L Albumin 2.9 L Arterial Blood Glucose Urine WBC (Auto) Urine Creatinine Digoxin 01/03/20 01/03/20 01/03/20 12:05 17:42 18:30 WBC RBC Hgb Hct MCHC RDW MCV MCH Lymph % (Auto) [place] % (Auto) [place] # Eos # Lymph # (Auto) [place] # (Auto) Eos # (Auto) Seg Neutrophils % Seg Neuts % (Manual) Baso # (Auto) Lymphocytes % (Manual) Monocytes % (Manual) Eosinophils % (Manual) Basophils % (Manual) Seg Neutrophils # Seg Neutrophils # Man Lymphocytes # (Manual) Monocytes # (Manual) Eosinophils # (Manual) Nucleated RBC % Basophils # (Manual) PT INR APTT Heparin Anti-Xa Level ABG pH POC ABG pO2 ABG pO2 70.7 L ABG HCO3 36.1 H ABG O2 Saturation 94.4 L ABG Base Excess 10.0 H POC ABG pCO2 ABG Hemoglobin 9.7 L ABG Oxyhemoglobin ABG Sodium ABG Chloride ABG Glucose Oxyhemoglobin 91.8 L Sodium Potassium Chloride Carbon Dioxide BUN Creatinine Glucose POC Glucose 128 H 132 H Lactic Acid Calcium Phosphorus Magnesium AST ALT Lactate Dehydrogenase Total Bilirubin Direct Bilirubin CK-MB (CK-2) C-Reactive Protein NT-Pro-B Natriuret Pep Total Protein Albumin Arterial Blood Glucose Urine WBC (Auto) Urine Creatinine Digoxin 01/04/20 01/04/20 01/04/20 00:10 04:26 05:23 WBC RBC Hgb Hct MCHC RDW MCV MCH Lymph % (Auto) [place] % (Auto) [place] # Eos # Lymph # (Auto) [place] # (Auto) Eos # (Auto) Seg Neutrophils % Seg Neuts % (Manual) Baso # (Auto) Lymphocytes % (Manual) Monocytes % (Manual) Eosinophils % (Manual) Basophils % (Manual) Seg Neutrophils # Seg Neutrophils # Man Lymphocytes # (Manual) Monocytes # (Manual) Eosinophils # (Manual) Nucleated RBC % Basophils # (Manual) PT INR APTT Heparin Anti-Xa Level 0.16 L ABG pH POC ABG pO2 ABG pO2 ABG HCO3 ABG O2 Saturation ABG Base Excess POC ABG pCO2 ABG Hemoglobin ABG Oxyhemoglobin ABG Sodium ABG Chloride ABG Glucose Oxyhemoglobin Sodium Potassium Chloride Carbon Dioxide BUN Creatinine Glucose POC Glucose 121 H 119 H Lactic Acid Calcium Phosphorus Magnesium AST ALT Lactate Dehydrogenase Total Bilirubin Direct Bilirubin CK-MB (CK-2) C-Reactive Protein NT-Pro-B Natriuret Pep Total Protein Albumin Arterial Blood Glucose Urine WBC (Auto) Urine Creatinine Digoxin 01/04/20 01/04/20 01/04/20 09:50 09:50 12:18 WBC 15.4 H RBC 3.30 L Hgb 8.7 L Hct 28.2 L MCHC 31 L RDW 17.0 H MCV MCH 26 L Lymph % (Auto) [place] % (Auto) 7.6 H [place] # Eos # Lymph # (Auto) [place] # (Auto) 1.2 H Eos # (Auto) Seg Neutrophils % 75.4 H Seg Neuts % (Manual) Baso # (Auto) Lymphocytes % (Manual) Monocytes % (Manual) Eosinophils % (Manual) Basophils % (Manual) Seg Neutrophils # 11.6 H Seg Neutrophils # Man Lymphocytes # (Manual) Monocytes # (Manual) Eosinophils # (Manual) Nucleated RBC % Basophils # (Manual) PT INR APTT Heparin Anti-Xa Level ABG pH POC ABG pO2 ABG pO2 ABG HCO3 ABG O2 Saturation ABG Base Excess POC ABG pCO2 ABG Hemoglobin ABG Oxyhemoglobin ABG Sodium ABG Chloride ABG Glucose Oxyhemoglobin Sodium 148 H Potassium 3.5 L Chloride Carbon Dioxide 32 H BUN Creatinine 0.6 L Glucose 114 H POC Glucose 111 H Lactic Acid Calcium Phosphorus Magnesium AST ALT 59 H Lactate Dehydrogenase Total Bilirubin Direct Bilirubin CK-MB (CK-2) C-Reactive Protein NT-Pro-B Natriuret Pep Total Protein Albumin 2.6 L Arterial Blood Glucose Urine WBC (Auto) Urine Creatinine Digoxin 01/05/20 01/05/20 01/05/20 04:05 04:05 05:19 WBC 11.7 H RBC 3.50 L Hgb 9.3 L Hct 29.9 L MCHC 31 L RDW 16.6 H MCV MCH 27 L Lymph % (Auto) 13.1 L [place] % (Auto) 9.7 H [place] # Eos # Lymph # (Auto) [place] # (Auto) 1.1 H Eos # (Auto) Seg Neutrophils % 74.0 H Seg Neuts % (Manual) Baso # (Auto) Lymphocytes % (Manual) Monocytes % (Manual) Eosinophils % (Manual) Basophils % (Manual) Seg Neutrophils # 8.6 H Seg Neutrophils # Man Lymphocytes # (Manual) Monocytes # (Manual) Eosinophils # (Manual) Nucleated RBC % Basophils # (Manual) PT INR APTT Heparin Anti-Xa Level ABG pH POC ABG pO2 ABG pO2 ABG HCO3 ABG O2 Saturation ABG Base Excess POC ABG pCO2 ABG Hemoglobin ABG Oxyhemoglobin ABG Sodium ABG Chloride ABG Glucose Oxyhemoglobin Sodium 151 H Potassium Chloride Carbon Dioxide 34 H BUN Creatinine 0.7 L Glucose POC Glucose 112 H Lactic Acid Calcium Phosphorus Magnesium AST ALT 59 H Lactate Dehydrogenase Total Bilirubin Direct Bilirubin CK-MB (CK-2) C-Reactive Protein NT-Pro-B Natriuret Pep Total Protein 5.8 L Albumin 2.6 L Arterial Blood Glucose Urine WBC (Auto) Urine Creatinine Digoxin 01/05/20 01/06/20 01/06/20 16:04 00:23 04:44 WBC RBC 3.36 L Hgb 8.9 L Hct 28.7 L MCHC 31 L RDW 16.9 H MCV MCH 26 L Lymph % (Auto) [place] % (Auto) 9.4 H [place] # Eos # Lymph # (Auto) [place] # (Auto) Eos # (Auto) Seg Neutrophils % Seg Neuts % (Manual) Baso # (Auto) Lymphocytes % (Manual) Monocytes % (Manual) Eosinophils % (Manual) Basophils % (Manual) Seg Neutrophils # Seg Neutrophils # Man Lymphocytes # (Manual) Monocytes # (Manual) Eosinophils # (Manual) Nucleated RBC % Basophils # (Manual) PT INR APTT Heparin Anti-Xa Level ABG pH POC ABG pO2 ABG pO2 ABG HCO3 ABG O2 Saturation ABG Base Excess POC ABG pCO2 ABG Hemoglobin ABG Oxyhemoglobin ABG Sodium ABG Chloride ABG Glucose Oxyhemoglobin Sodium 151 H Potassium 3.2 L Chloride Carbon Dioxide 34 H BUN Creatinine 0.6 L Glucose POC Glucose 107 H Lactic Acid Calcium Phosphorus Magnesium AST ALT Lactate Dehydrogenase Total Bilirubin Direct Bilirubin CK-MB (CK-2) C-Reactive Protein NT-Pro-B Natriuret Pep Total Protein Albumin Arterial Blood Glucose Urine WBC (Auto) Urine Creatinine Digoxin 01/06/20 01/06/20 01/06/20 04:44 05:33 12:04 WBC RBC Hgb Hct MCHC RDW MCV MCH Lymph % (Auto) [place] % (Auto) [place] # Eos # Lymph # (Auto) [place] # (Auto) Eos # (Auto) Seg Neutrophils % Seg Neuts % (Manual) Baso # (Auto) Lymphocytes % (Manual) Monocytes % (Manual) Eosinophils % (Manual) Basophils % (Manual) Seg Neutrophils # Seg Neutrophils # Man Lymphocytes # (Manual) Monocytes # (Manual) Eosinophils # (Manual) Nucleated RBC % Basophils # (Manual) PT INR APTT Heparin Anti-Xa Level ABG pH POC ABG pO2 ABG pO2 ABG HCO3 ABG O2 Saturation ABG Base Excess POC ABG pCO2 ABG Hemoglobin ABG Oxyhemoglobin ABG Sodium ABG Chloride ABG Glucose Oxyhemoglobin Sodium 151 H Potassium 3.4 L Chloride Carbon Dioxide 33 H BUN Creatinine 0.6 L Glucose 118 H POC Glucose 118 H 123 H Lactic Acid Calcium Phosphorus Magnesium AST ALT Lactate Dehydrogenase Total Bilirubin Direct Bilirubin CK-MB (CK-2) C-Reactive Protein NT-Pro-B Natriuret Pep Total Protein 6.2 L Albumin 2.6 L Arterial Blood Glucose Urine WBC (Auto) Urine Creatinine Digoxin 01/06/20 01/07/20 01/07/20 17:54 00:06 04:10 WBC RBC 3.42 L Hgb 8.9 L Hct 29.0 L MCHC 31 L RDW 17.1 H MCV MCH 26 L Lymph % (Auto) [place] % (Auto) 8.4 H [place] # Eos # Lymph # (Auto) [place] # (Auto) Eos # (Auto) Seg Neutrophils % Seg Neuts % (Manual) Baso # (Auto) Lymphocytes % (Manual) Monocytes % (Manual) Eosinophils % (Manual) Basophils % (Manual) Seg Neutrophils # Seg Neutrophils # Man Lymphocytes # (Manual) Monocytes # (Manual) Eosinophils # (Manual) Nucleated RBC % Basophils # (Manual) PT INR APTT Heparin Anti-Xa Level ABG pH POC ABG pO2 ABG pO2 ABG HCO3 ABG O2 Saturation ABG Base Excess POC ABG pCO2 ABG Hemoglobin ABG Oxyhemoglobin ABG Sodium ABG Chloride ABG Glucose Oxyhemoglobin Sodium Potassium Chloride Carbon Dioxide BUN Creatinine Glucose POC Glucose 112 H 126 H Lactic Acid Calcium Phosphorus Magnesium AST ALT Lactate Dehydrogenase Total Bilirubin Direct Bilirubin CK-MB (CK-2) C-Reactive Protein NT-Pro-B Natriuret Pep Total Protein Albumin Arterial Blood Glucose Urine WBC (Auto) Urine Creatinine Digoxin 01/07/20 01/07/20 01/07/20 04:10 05:59 12:27 WBC RBC Hgb Hct MCHC RDW MCV MCH Lymph % (Auto) [place] % (Auto) [place] # Eos # Lymph # (Auto) [place] # (Auto) Eos # (Auto) Seg Neutrophils % Seg Neuts % (Manual) Baso # (Auto) Lymphocytes % (Manual) Monocytes % (Manual) Eosinophils % (Manual) Basophils % (Manual) Seg Neutrophils # Seg Neutrophils # Man Lymphocytes # (Manual) Monocytes # (Manual) Eosinophils # (Manual) Nucleated RBC % Basophils # (Manual) PT INR APTT Heparin Anti-Xa Level ABG pH POC ABG pO2 ABG pO2 ABG HCO3 ABG O2 Saturation ABG Base Excess POC ABG pCO2 ABG Hemoglobin ABG Oxyhemoglobin ABG Sodium ABG Chloride ABG Glucose Oxyhemoglobin Sodium 153 H Potassium 3.5 L Chloride Carbon Dioxide 34 H BUN Creatinine 0.6 L Glucose 121 H POC Glucose 121 H 126 H Lactic Acid Calcium Phosphorus Magnesium AST ALT Lactate Dehydrogenase Total Bilirubin Direct Bilirubin CK-MB (CK-2) C-Reactive Protein NT-Pro-B Natriuret Pep Total Protein 5.9 L Albumin 2.4 L Arterial Blood Glucose Urine WBC (Auto) Urine Creatinine Digoxin 01/07/20 01/08/20 01/08/20 18:12 00:03 05:41 WBC RBC Hgb Hct MCHC RDW MCV MCH Lymph % (Auto) [place] % (Auto) [place] # Eos # Lymph # (Auto) [place] # (Auto) Eos # (Auto) Seg Neutrophils % Seg Neuts % (Manual) Baso # (Auto) Lymphocytes % (Manual) Monocytes % (Manual) Eosinophils % (Manual) Basophils % (Manual) Seg Neutrophils # Seg Neutrophils # Man Lymphocytes # (Manual) Monocytes # (Manual) Eosinophils # (Manual) Nucleated RBC % Basophils # (Manual) PT INR APTT Heparin Anti-Xa Level ABG pH POC ABG pO2 ABG pO2 ABG HCO3 ABG O2 Saturation ABG Base Excess POC ABG pCO2 ABG Hemoglobin ABG Oxyhemoglobin ABG Sodium ABG Chloride ABG Glucose Oxyhemoglobin Sodium Potassium Chloride Carbon Dioxide BUN Creatinine Glucose POC Glucose 124 H 130 H 138 H Lactic Acid Calcium Phosphorus Magnesium AST ALT Lactate Dehydrogenase Total Bilirubin Direct Bilirubin CK-MB (CK-2) C-Reactive Protein NT-Pro-B Natriuret Pep Total Protein Albumin Arterial Blood Glucose Urine WBC (Auto) Urine Creatinine Digoxin 01/08/20 01/08/20 01/08/20 09:28 11:42 18:21 WBC RBC Hgb Hct MCHC RDW MCV MCH Lymph % (Auto) [place] % (Auto) [place] # Eos # Lymph # (Auto) [place] # (Auto) Eos # (Auto) Seg Neutrophils % Seg Neuts % (Manual) Baso # (Auto) Lymphocytes % (Manual) Monocytes % (Manual) Eosinophils % (Manual) Basophils % (Manual) Seg Neutrophils # Seg Neutrophils # Man Lymphocytes # (Manual) Monocytes # (Manual) Eosinophils # (Manual) Nucleated RBC % Basophils # (Manual) PT INR APTT Heparin Anti-Xa Level ABG pH POC ABG pO2 ABG pO2 ABG HCO3 ABG O2 Saturation ABG Base Excess POC ABG pCO2 ABG Hemoglobin ABG Oxyhemoglobin ABG Sodium ABG Chloride ABG Glucose Oxyhemoglobin Sodium Potassium Chloride Carbon Dioxide BUN Creatinine Glucose POC Glucose 181 H 150 H 129 H Lactic Acid Calcium Phosphorus Magnesium AST ALT Lactate Dehydrogenase Total Bilirubin Direct Bilirubin CK-MB (CK-2) C-Reactive Protein NT-Pro-B Natriuret Pep Total Protein Albumin Arterial Blood Glucose Urine WBC (Auto) Urine Creatinine Digoxin 01/08/20 01/08/20 01/09/20 19:25 23:55 04:11 WBC RBC 3.43 L Hgb 8.9 L Hct 28.7 L MCHC 31 L RDW 17.6 H MCV MCH 26 L Lymph % (Auto) [place] % (Auto) 8.6 H [place] # Eos # Lymph # (Auto) [place] # (Auto) Eos # (Auto) Seg Neutrophils % Seg Neuts % (Manual) Baso # (Auto) Lymphocytes % (Manual) Monocytes % (Manual) Eosinophils % (Manual) Basophils % (Manual) Seg Neutrophils # Seg Neutrophils # Man Lymphocytes # (Manual) Monocytes # (Manual) Eosinophils # (Manual) Nucleated RBC % Basophils # (Manual) PT INR APTT Heparin Anti-Xa Level ABG pH POC ABG pO2 ABG pO2 ABG HCO3 ABG O2 Saturation ABG Base Excess POC ABG pCO2 ABG Hemoglobin ABG Oxyhemoglobin ABG Sodium ABG Chloride ABG Glucose Oxyhemoglobin Sodium Potassium Chloride Carbon Dioxide BUN Creatinine 0.7 L Glucose 117 H POC Glucose 132 H Lactic Acid Calcium Phosphorus Magnesium AST ALT Lactate Dehydrogenase Total Bilirubin Direct Bilirubin CK-MB (CK-2) C-Reactive Protein NT-Pro-B Natriuret Pep Total Protein Albumin Arterial Blood Glucose Urine WBC (Auto) Urine Creatinine Digoxin 01/09/20 01/09/20 01/09/20 04:11 05:38 22:58 WBC RBC Hgb Hct MCHC RDW MCV MCH Lymph % (Auto) [place] % (Auto) [place] # Eos # Lymph # (Auto) [place] # (Auto) Eos # (Auto) Seg Neutrophils % Seg Neuts % (Manual) Baso # (Auto) Lymphocytes % (Manual) Monocytes % (Manual) Eosinophils % (Manual) Basophils % (Manual) Seg Neutrophils # Seg Neutrophils # Man Lymphocytes # (Manual) Monocytes # (Manual) Eosinophils # (Manual) Nucleated RBC % Basophils # (Manual) PT INR APTT Heparin Anti-Xa Level ABG pH POC ABG pO2 ABG pO2 ABG HCO3 ABG O2 Saturation ABG Base Excess POC ABG pCO2 ABG Hemoglobin ABG Oxyhemoglobin ABG Sodium ABG Chloride ABG Glucose Oxyhemoglobin Sodium 147 H Potassium 3.3 L D Chloride Carbon Dioxide 32 H BUN Creatinine 0.6 L Glucose 106 H POC Glucose 107 H 113 H Lactic Acid Calcium Phosphorus Magnesium AST ALT Lactate Dehydrogenase Total Bilirubin Direct Bilirubin CK-MB (CK-2) C-Reactive Protein NT-Pro-B Natriuret Pep Total Protein Albumin Arterial Blood Glucose Urine WBC (Auto) Urine Creatinine Digoxin 01/10/20 01/10/20 01/10/20 04:05 11:36 17:54 WBC RBC Hgb Hct MCHC RDW MCV MCH Lymph % (Auto) [place] % (Auto) [place] # Eos # Lymph # (Auto) [place] # (Auto) Eos # (Auto) Seg Neutrophils % Seg Neuts % (Manual) Baso # (Auto) Lymphocytes % (Manual) Monocytes % (Manual) Eosinophils % (Manual) Basophils % (Manual) Seg Neutrophils # Seg Neutrophils # Man Lymphocytes # (Manual) Monocytes # (Manual) Eosinophils # (Manual) Nucleated RBC % Basophils # (Manual) PT INR APTT Heparin Anti-Xa Level ABG pH POC ABG pO2 ABG pO2 ABG HCO3 ABG O2 Saturation ABG Base Excess POC ABG pCO2 ABG Hemoglobin ABG Oxyhemoglobin ABG Sodium ABG Chloride ABG Glucose Oxyhemoglobin Sodium Potassium Chloride Carbon Dioxide BUN Creatinine 0.7 L Glucose 110 H POC Glucose 129 H 117 H Lactic Acid Calcium Phosphorus Magnesium AST ALT Lactate Dehydrogenase Total Bilirubin Direct Bilirubin CK-MB (CK-2) C-Reactive Protein NT-Pro-B Natriuret Pep Total Protein Albumin Arterial Blood Glucose Urine WBC (Auto) Urine Creatinine Digoxin 01/10/20 01/11/20 01/11/20 23:52 03:19 12:09 WBC RBC Hgb Hct MCHC RDW MCV MCH Lymph % (Auto) [place] % (Auto) [place] # Eos # Lymph # (Auto) [place] # (Auto) Eos # (Auto) Seg Neutrophils % Seg Neuts % (Manual) Baso # (Auto) Lymphocytes % (Manual) Monocytes % (Manual) Eosinophils % (Manual) Basophils % (Manual) Seg Neutrophils # Seg Neutrophils # Man Lymphocytes # (Manual) Monocytes # (Manual) Eosinophils # (Manual) Nucleated RBC % Basophils # (Manual) PT INR APTT Heparin Anti-Xa Level ABG pH POC ABG pO2 ABG pO2 ABG HCO3 ABG O2 Saturation ABG Base Excess POC ABG pCO2 ABG Hemoglobin ABG Oxyhemoglobin ABG Sodium ABG Chloride ABG Glucose Oxyhemoglobin Sodium Potassium Chloride Carbon Dioxide BUN Creatinine Glucose POC Glucose 117 H 136 H 115 H Lactic Acid Calcium Phosphorus Magnesium AST ALT Lactate Dehydrogenase Total Bilirubin Direct Bilirubin CK-MB (CK-2) C-Reactive Protein NT-Pro-B Natriuret Pep Total Protein Albumin Arterial Blood Glucose Urine WBC (Auto) Urine Creatinine Digoxin 01/11/20 01/11/20 01/12/20 18:27 23:28 00:23 WBC RBC Hgb 9.8 L Hct 31.6 L MCHC 31 L RDW 17.8 H MCV 83 L MCH 26 L Lymph % (Auto) [place] % (Auto) 8.0 H [place] # Eos # Lymph # (Auto) [place] # (Auto) Eos # (Auto) Seg Neutrophils % Seg Neuts % (Manual) Baso # (Auto) Lymphocytes % (Manual) Monocytes % (Manual) Eosinophils % (Manual) Basophils % (Manual) Seg Neutrophils # Seg Neutrophils # Man Lymphocytes # (Manual) Monocytes # (Manual) Eosinophils # (Manual) Nucleated RBC % Basophils # (Manual) PT INR APTT Heparin Anti-Xa Level ABG pH POC ABG pO2 ABG pO2 ABG HCO3 ABG O2 Saturation ABG Base Excess POC ABG pCO2 ABG Hemoglobin ABG Oxyhemoglobin ABG Sodium ABG Chloride ABG Glucose Oxyhemoglobin Sodium Potassium Chloride Carbon Dioxide BUN Creatinine Glucose POC Glucose 118 H 122 H Lactic Acid Calcium Phosphorus Magnesium AST ALT Lactate Dehydrogenase Total Bilirubin Direct Bilirubin CK-MB (CK-2) C-Reactive Protein NT-Pro-B Natriuret Pep Total Protein Albumin Arterial Blood Glucose Urine WBC (Auto) Urine Creatinine Digoxin 01/12/20 01/12/20 01/12/20 00:23 04:18 04:18 WBC RBC Hgb 9.6 L Hct 30.9 L MCHC 31 L RDW 17.3 H MCV 81 L MCH 25 L Lymph % (Auto) [place] % (Auto) [place] # Eos # Lymph # (Auto) [place] # (Auto) Eos # (Auto) Seg Neutrophils % Seg Neuts % (Manual) Baso # (Auto) Lymphocytes % (Manual) Monocytes % (Manual) Eosinophils % (Manual) Basophils % (Manual) Seg Neutrophils # Seg Neutrophils # Man Lymphocytes # (Manual) Monocytes # (Manual) Eosinophils # (Manual) Nucleated RBC % Basophils # (Manual) PT INR APTT Heparin Anti-Xa Level ABG pH POC ABG pO2 ABG pO2 ABG HCO3 ABG O2 Saturation ABG Base Excess POC ABG pCO2 ABG Hemoglobin ABG Oxyhemoglobin ABG Sodium ABG Chloride ABG Glucose Oxyhemoglobin Sodium Potassium Chloride Carbon Dioxide BUN Creatinine 0.7 L 0.7 L Glucose 111 H 108 H POC Glucose Lactic Acid Calcium Phosphorus Magnesium AST ALT Lactate Dehydrogenase Total Bilirubin Direct Bilirubin CK-MB (CK-2) C-Reactive Protein NT-Pro-B Natriuret Pep Total Protein Albumin 2.6 L Arterial Blood Glucose Urine WBC (Auto) Urine Creatinine Digoxin 01/12/20 01/12/20 01/12/20 06:03 12:27 13:58 WBC RBC Hgb Hct MCHC RDW MCV MCH Lymph % (Auto) [place] % (Auto) [place] # Eos # Lymph # (Auto) [place] # (Auto) Eos # (Auto) Seg Neutrophils % Seg Neuts % (Manual) Baso # (Auto) Lymphocytes % (Manual) Monocytes % (Manual) Eosinophils % (Manual) Basophils % (Manual) Seg Neutrophils # Seg Neutrophils # Man Lymphocytes # (Manual) Monocytes # (Manual) Eosinophils # (Manual) Nucleated RBC % Basophils # (Manual) PT INR APTT Heparin Anti-Xa Level ABG pH 7.453 H POC ABG pO2 76.6 L ABG pO2 ABG HCO3 ABG O2 Saturation ABG Base Excess POC ABG pCO2 ABG Hemoglobin 10.3 L ABG Oxyhemoglobin ABG Sodium ABG Chloride ABG Glucose 99 H Oxyhemoglobin Sodium Potassium Chloride Carbon Dioxide BUN Creatinine Glucose POC Glucose 128 H 121 H Lactic Acid Calcium Phosphorus Magnesium AST ALT Lactate Dehydrogenase Total Bilirubin Direct Bilirubin CK-MB (CK-2) C-Reactive Protein NT-Pro-B Natriuret Pep Total Protein Albumin Arterial Blood Glucose 99 H Urine WBC (Auto) Urine Creatinine Digoxin 01/12/20 01/13/20 01/13/20 18:24 12:01 17:46 WBC RBC Hgb Hct MCHC RDW MCV MCH Lymph % (Auto) [place] % (Auto) [place] # Eos # Lymph # (Auto) [place] # (Auto) Eos # (Auto) Seg Neutrophils % Seg Neuts % (Manual) Baso # (Auto) Lymphocytes % (Manual) Monocytes % (Manual) Eosinophils % (Manual) Basophils % (Manual) Seg Neutrophils # Seg Neutrophils # Man Lymphocytes # (Manual) Monocytes # (Manual) Eosinophils # (Manual) Nucleated RBC % Basophils # (Manual) PT INR APTT Heparin Anti-Xa Level ABG pH POC ABG pO2 ABG pO2 ABG HCO3 ABG O2 Saturation ABG Base Excess POC ABG pCO2 ABG Hemoglobin ABG Oxyhemoglobin ABG Sodium ABG Chloride ABG Glucose Oxyhemoglobin Sodium Potassium Chloride Carbon Dioxide BUN Creatinine Glucose POC Glucose 119 H 107 H 124 H Lactic Acid Calcium Phosphorus Magnesium AST ALT Lactate Dehydrogenase Total Bilirubin Direct Bilirubin CK-MB (CK-2) C-Reactive Protein NT-Pro-B Natriuret Pep Total Protein Albumin Arterial Blood Glucose Urine WBC (Auto) Urine Creatinine Digoxin 01/13/20 01/14/20 01/14/20 20:40 00:10 05:33 WBC RBC Hgb Hct MCHC RDW MCV MCH Lymph % (Auto) [place] % (Auto) [place] # Eos # Lymph # (Auto) [place] # (Auto) Eos # (Auto) Seg Neutrophils % Seg Neuts % (Manual) Baso # (Auto) Lymphocytes % (Manual) Monocytes % (Manual) Eosinophils % (Manual) Basophils % (Manual) Seg Neutrophils # Seg Neutrophils # Man Lymphocytes # (Manual) Monocytes # (Manual) Eosinophils # (Manual) Nucleated RBC % Basophils # (Manual) PT INR APTT Heparin Anti-Xa Level ABG pH POC ABG pO2 ABG pO2 65.3 L ABG HCO3 31.8 H ABG O2 Saturation 93.5 L ABG Base Excess 6.7 H POC ABG pCO2 ABG Hemoglobin 13.3 L ABG Oxyhemoglobin ABG Sodium ABG Chloride ABG Glucose Oxyhemoglobin 90.9 L Sodium Potassium Chloride Carbon Dioxide BUN Creatinine Glucose POC Glucose 111 H 111 H Lactic Acid Calcium Phosphorus Magnesium AST ALT Lactate Dehydrogenase Total Bilirubin Direct Bilirubin CK-MB (CK-2) C-Reactive Protein NT-Pro-B Natriuret Pep Total Protein Albumin Arterial Blood Glucose Urine WBC (Auto) Urine Creatinine Digoxin 01/14/20 01/14/20 01/14/20 12:10 16:14 16:14 WBC RBC Hgb 10.6 L Hct 34.2 L MCHC 31 L RDW 18.3 H MCV 83 L MCH 26 L Lymph % (Auto) [place] % (Auto) 7.4 H [place] # Eos # Lymph # (Auto) [place] # (Auto) Eos # (Auto) Seg Neutrophils % 71.9 H Seg Neuts % (Manual) Baso # (Auto) Lymphocytes % (Manual) Monocytes % (Manual) Eosinophils % (Manual) Basophils % (Manual) Seg Neutrophils # Seg Neutrophils # Man Lymphocytes # (Manual) Monocytes # (Manual) Eosinophils # (Manual) Nucleated RBC % Basophils # (Manual) PT INR APTT Heparin Anti-Xa Level ABG pH POC ABG pO2 ABG pO2 ABG HCO3 ABG O2 Saturation ABG Base Excess POC ABG pCO2 ABG Hemoglobin ABG Oxyhemoglobin ABG Sodium ABG Chloride ABG Glucose Oxyhemoglobin Sodium Potassium Chloride Carbon Dioxide 31 H BUN Creatinine 0.6 L Glucose 131 H POC Glucose 139 H Lactic Acid Calcium Phosphorus Magnesium AST ALT Lactate Dehydrogenase Total Bilirubin Direct Bilirubin CK-MB (CK-2) C-Reactive Protein NT-Pro-B Natriuret Pep Total Protein Albumin Arterial Blood Glucose Urine WBC (Auto) Urine Creatinine Digoxin 01/14/20 01/15/20 01/15/20 18:05 00:52 05:35 WBC RBC Hgb Hct MCHC RDW MCV MCH Lymph % (Auto) [place] % (Auto) [place] # Eos # Lymph # (Auto) [place] # (Auto) Eos # (Auto) Seg Neutrophils % Seg Neuts % (Manual) Baso # (Auto) Lymphocytes % (Manual) Monocytes % (Manual) Eosinophils % (Manual) Basophils % (Manual) Seg Neutrophils # Seg Neutrophils # Man Lymphocytes # (Manual) Monocytes # (Manual) Eosinophils # (Manual) Nucleated RBC % Basophils # (Manual) PT INR APTT Heparin Anti-Xa Level ABG pH POC ABG pO2 ABG pO2 ABG HCO3 ABG O2 Saturation ABG Base Excess POC ABG pCO2 ABG Hemoglobin ABG Oxyhemoglobin ABG Sodium ABG Chloride ABG Glucose Oxyhemoglobin Sodium Potassium Chloride Carbon Dioxide BUN Creatinine Glucose POC Glucose 147 H 140 H 159 H Lactic Acid Calcium Phosphorus Magnesium AST ALT Lactate Dehydrogenase Total Bilirubin Direct Bilirubin CK-MB (CK-2) C-Reactive Protein NT-Pro-B Natriuret Pep Total Protein Albumin Arterial Blood Glucose Urine WBC (Auto) Urine Creatinine Digoxin 01/15/20 01/15/20 01/16/20 12:52 17:43 00:32 WBC RBC Hgb Hct MCHC RDW MCV MCH Lymph % (Auto) [place] % (Auto) [place] # Eos # Lymph # (Auto) [place] # (Auto) Eos # (Auto) Seg Neutrophils % Seg Neuts % (Manual) Baso # (Auto) Lymphocytes % (Manual) Monocytes % (Manual) Eosinophils % (Manual) Basophils % (Manual) Seg Neutrophils # Seg Neutrophils # Man Lymphocytes # (Manual) Monocytes # (Manual) Eosinophils # (Manual) Nucleated RBC % Basophils # (Manual) PT INR APTT Heparin Anti-Xa Level ABG pH POC ABG pO2 ABG pO2 ABG HCO3 ABG O2 Saturation ABG Base Excess POC ABG pCO2 ABG Hemoglobin ABG Oxyhemoglobin ABG Sodium ABG Chloride ABG Glucose Oxyhemoglobin Sodium Potassium Chloride Carbon Dioxide BUN Creatinine Glucose POC Glucose 164 H 167 H 153 H Lactic Acid Calcium Phosphorus Magnesium AST ALT Lactate Dehydrogenase Total Bilirubin Direct Bilirubin CK-MB (CK-2) C-Reactive Protein NT-Pro-B Natriuret Pep Total Protein Albumin Arterial Blood Glucose Urine WBC (Auto) Urine Creatinine Digoxin 01/16/20 01/16/20 01/17/20 05:46 11:48 06:38 WBC RBC Hgb Hct MCHC RDW MCV MCH Lymph % (Auto) [place] % (Auto) [place] # Eos # Lymph # (Auto) [place] # (Auto) Eos # (Auto) Seg Neutrophils % Seg Neuts % (Manual) Baso # (Auto) Lymphocytes % (Manual) Monocytes % (Manual) Eosinophils % (Manual) Basophils % (Manual) Seg Neutrophils # Seg Neutrophils # Man Lymphocytes # (Manual) Monocytes # (Manual) Eosinophils # (Manual) Nucleated RBC % Basophils # (Manual) PT INR APTT Heparin Anti-Xa Level ABG pH POC ABG pO2 ABG pO2 ABG HCO3 ABG O2 Saturation ABG Base Excess POC ABG pCO2 ABG Hemoglobin ABG Oxyhemoglobin ABG Sodium ABG Chloride ABG Glucose Oxyhemoglobin Sodium Potassium Chloride Carbon Dioxide BUN Creatinine Glucose POC Glucose 163 H 155 H 116 H Lactic Acid Calcium Phosphorus Magnesium AST ALT Lactate Dehydrogenase Total Bilirubin Direct Bilirubin CK-MB (CK-2) C-Reactive Protein NT-Pro-B Natriuret Pep Total Protein Albumin Arterial Blood Glucose Urine WBC (Auto) Urine Creatinine Digoxin 01/17/20 01/17/20 01/18/20 11:36 17:43 00:12 WBC RBC Hgb Hct MCHC RDW MCV MCH Lymph % (Auto) [place] % (Auto) [place] # Eos # Lymph # (Auto) [place] # (Auto) Eos # (Auto) Seg Neutrophils % Seg Neuts % (Manual) Baso # (Auto) Lymphocytes % (Manual) Monocytes % (Manual) Eosinophils % (Manual) Basophils % (Manual) Seg Neutrophils # Seg Neutrophils # Man Lymphocytes # (Manual) Monocytes # (Manual) Eosinophils # (Manual) Nucleated RBC % Basophils # (Manual) PT INR APTT Heparin Anti-Xa Level ABG pH POC ABG pO2 ABG pO2 ABG HCO3 ABG O2 Saturation ABG Base Excess POC ABG pCO2 ABG Hemoglobin ABG Oxyhemoglobin ABG Sodium ABG Chloride ABG Glucose Oxyhemoglobin Sodium Potassium Chloride Carbon Dioxide BUN Creatinine Glucose POC Glucose 110 H 134 H 108 H Lactic Acid Calcium Phosphorus Magnesium AST ALT Lactate Dehydrogenase Total Bilirubin Direct Bilirubin CK-MB (CK-2) C-Reactive Protein NT-Pro-B Natriuret Pep Total Protein Albumin Arterial Blood Glucose Urine WBC (Auto) Urine Creatinine Digoxin 01/18/20 01/18/20 01/18/20 05:37 06:46 06:46 WBC RBC Hgb 10.1 L Hct 32.2 L MCHC 31 L RDW 18.1 H MCV 81 L MCH 25 L Lymph % (Auto) [place] % (Auto) [place] # Eos # Lymph # (Auto) [place] # (Auto) Eos # (Auto) Seg Neutrophils % 71.9 H Seg Neuts % (Manual) Baso # (Auto) Lymphocytes % (Manual) Monocytes % (Manual) Eosinophils % (Manual) Basophils % (Manual) Seg Neutrophils # Seg Neutrophils # Man Lymphocytes # (Manual) Monocytes # (Manual) Eosinophils # (Manual) Nucleated RBC % Basophils # (Manual) PT INR APTT Heparin Anti-Xa Level ABG pH POC ABG pO2 ABG pO2 ABG HCO3 ABG O2 Saturation ABG Base Excess POC ABG pCO2 ABG Hemoglobin ABG Oxyhemoglobin ABG Sodium ABG Chloride ABG Glucose Oxyhemoglobin Sodium Potassium Chloride Carbon Dioxide BUN Creatinine 0.7 L Glucose 155 H POC Glucose 168 H Lactic Acid Calcium Phosphorus Magnesium AST ALT Lactate Dehydrogenase Total Bilirubin Direct Bilirubin CK-MB (CK-2) C-Reactive Protein NT-Pro-B Natriuret Pep Total Protein Albumin Arterial Blood Glucose Urine WBC (Auto) Urine Creatinine Digoxin 01/18/20 01/18/20 01/18/20 12:05 17:14 23:28 WBC RBC Hgb Hct MCHC RDW MCV MCH Lymph % (Auto) [place] % (Auto) [place] # Eos # Lymph # (Auto) [place] # (Auto) Eos # (Auto) Seg Neutrophils % Seg Neuts % (Manual) Baso # (Auto) Lymphocytes % (Manual) Monocytes % (Manual) Eosinophils % (Manual) Basophils % (Manual) Seg Neutrophils # Seg Neutrophils # Man Lymphocytes # (Manual) Monocytes # (Manual) Eosinophils # (Manual) Nucleated RBC % Basophils # (Manual) PT INR APTT Heparin Anti-Xa Level ABG pH POC ABG pO2 ABG pO2 ABG HCO3 ABG O2 Saturation ABG Base Excess POC ABG pCO2 ABG Hemoglobin ABG Oxyhemoglobin ABG Sodium ABG Chloride ABG Glucose Oxyhemoglobin Sodium Potassium Chloride Carbon Dioxide BUN Creatinine Glucose POC Glucose 128 H 126 H 128 H Lactic Acid Calcium Phosphorus Magnesium AST ALT Lactate Dehydrogenase Total Bilirubin Direct Bilirubin CK-MB (CK-2) C-Reactive Protein NT-Pro-B Natriuret Pep Total Protein Albumin Arterial Blood Glucose Urine WBC (Auto) Urine Creatinine Digoxin 01/19/20 01/19/20 01/19/20 05:39 12:33 17:36 WBC RBC Hgb Hct MCHC RDW MCV MCH Lymph % (Auto) [place] % (Auto) [place] # Eos # Lymph # (Auto) [place] # (Auto) Eos # (Auto) Seg Neutrophils % Seg Neuts % (Manual) Baso # (Auto) Lymphocytes % (Manual) Monocytes % (Manual) Eosinophils % (Manual) Basophils % (Manual) Seg Neutrophils # Seg Neutrophils # Man Lymphocytes # (Manual) Monocytes # (Manual) Eosinophils # (Manual) Nucleated RBC % Basophils # (Manual) PT INR APTT Heparin Anti-Xa Level ABG pH POC ABG pO2 ABG pO2 ABG HCO3 ABG O2 Saturation ABG Base Excess POC ABG pCO2 ABG Hemoglobin ABG Oxyhemoglobin ABG Sodium ABG Chloride ABG Glucose Oxyhemoglobin Sodium Potassium Chloride Carbon Dioxide BUN Creatinine Glucose POC Glucose 164 H 171 H 152 H Lactic Acid Calcium Phosphorus Magnesium AST ALT Lactate Dehydrogenase Total Bilirubin Direct Bilirubin CK-MB (CK-2) C-Reactive Protein NT-Pro-B Natriuret Pep Total Protein Albumin Arterial Blood Glucose Urine WBC (Auto) Urine Creatinine Digoxin 01/20/20 01/20/20 01/20/20 00:12 05:20 05:35 WBC RBC Hgb 9.2 L Hct 29.4 L MCHC 31 L RDW 17.9 H MCV 81 L MCH 25 L Lymph % (Auto) [place] % (Auto) [place] # Eos # Lymph # (Auto) [place] # (Auto) Eos # (Auto) Seg Neutrophils % Seg Neuts % (Manual) Baso # (Auto) Lymphocytes % (Manual) Monocytes % (Manual) Eosinophils % (Manual) Basophils % (Manual) Seg Neutrophils # Seg Neutrophils # Man Lymphocytes # (Manual) Monocytes # (Manual) Eosinophils # (Manual) Nucleated RBC % Basophils # (Manual) PT INR APTT Heparin Anti-Xa Level ABG pH POC ABG pO2 ABG pO2 ABG HCO3 ABG O2 Saturation ABG Base Excess POC ABG pCO2 ABG Hemoglobin ABG Oxyhemoglobin ABG Sodium ABG Chloride ABG Glucose Oxyhemoglobin Sodium Potassium Chloride Carbon Dioxide BUN Creatinine Glucose POC Glucose 120 H 136 H Lactic Acid Calcium Phosphorus Magnesium AST ALT Lactate Dehydrogenase Total Bilirubin Direct Bilirubin CK-MB (CK-2) C-Reactive Protein NT-Pro-B Natriuret Pep Total Protein Albumin Arterial Blood Glucose Urine WBC (Auto) Urine Creatinine Digoxin 01/20/20 01/20/20 01/20/20 05:40 11:58 14:55 WBC RBC Hgb 9.0 L Hct 28.3 L MCHC RDW MCV MCH Lymph % (Auto) [place] % (Auto) [place] # Eos # Lymph # (Auto) [place] # (Auto) Eos # (Auto) Seg Neutrophils % Seg Neuts % (Manual) Baso # (Auto) Lymphocytes % (Manual) Monocytes % (Manual) Eosinophils % (Manual) Basophils % (Manual) Seg Neutrophils # Seg Neutrophils # Man Lymphocytes # (Manual) Monocytes # (Manual) Eosinophils # (Manual) Nucleated RBC % Basophils # (Manual) PT INR APTT Heparin Anti-Xa Level ABG pH POC ABG pO2 ABG pO2 ABG HCO3 ABG O2 Saturation ABG Base Excess POC ABG pCO2 ABG Hemoglobin ABG Oxyhemoglobin ABG Sodium ABG Chloride ABG Glucose Oxyhemoglobin Sodium Potassium Chloride Carbon Dioxide 32 H BUN 22 H Creatinine 0.7 L Glucose 128 H POC Glucose 152 H Lactic Acid Calcium Phosphorus Magnesium AST ALT Lactate Dehydrogenase Total Bilirubin Direct Bilirubin CK-MB (CK-2) C-Reactive Protein NT-Pro-B Natriuret Pep Total Protein Albumin Arterial Blood Glucose Urine WBC (Auto) Urine Creatinine Digoxin 01/20/20 01/20/20 01/20/20 14:55 18:14 21:35 WBC RBC Hgb Hct MCHC RDW MCV MCH Lymph % (Auto) [place] % (Auto) [place] # Eos # Lymph # (Auto) [place] # (Auto) Eos # (Auto) Seg Neutrophils % Seg Neuts % (Manual) Baso # (Auto) Lymphocytes % (Manual) Monocytes % (Manual) Eosinophils % (Manual) Basophils % (Manual) Seg Neutrophils # Seg Neutrophils # Man Lymphocytes # (Manual) Monocytes # (Manual) Eosinophils # (Manual) Nucleated RBC % Basophils # (Manual) PT 20.4 H INR 1.72 H APTT 40.6 H Heparin Anti-Xa Level > 2.00 H ABG pH POC ABG pO2 ABG pO2 ABG HCO3 ABG O2 Saturation ABG Base Excess POC ABG pCO2 ABG Hemoglobin ABG Oxyhemoglobin ABG Sodium ABG Chloride ABG Glucose Oxyhemoglobin Sodium Potassium Chloride Carbon Dioxide BUN Creatinine Glucose POC Glucose 150 H Lactic Acid Calcium Phosphorus Magnesium AST ALT Lactate Dehydrogenase Total Bilirubin Direct Bilirubin CK-MB (CK-2) C-Reactive Protein NT-Pro-B Natriuret Pep Total Protein Albumin Arterial Blood Glucose Urine WBC (Auto) Urine Creatinine Digoxin 01/21/20 01/21/20 01/21/20 00:30 05:47 05:59 WBC RBC Hgb Hct MCHC RDW MCV MCH Lymph % (Auto) [place] % (Auto) [place] # Eos # Lymph # (Auto) [place] # (Auto) Eos # (Auto) Seg Neutrophils % Seg Neuts % (Manual) Baso # (Auto) Lymphocytes % (Manual) Monocytes % (Manual) Eosinophils % (Manual) Basophils % (Manual) Seg Neutrophils # Seg Neutrophils # Man Lymphocytes # (Manual) Monocytes # (Manual) Eosinophils # (Manual) Nucleated RBC % Basophils # (Manual) PT INR APTT Heparin Anti-Xa Level 1.93 H ABG pH POC ABG pO2 ABG pO2 ABG HCO3 ABG O2 Saturation ABG Base Excess POC ABG pCO2 ABG Hemoglobin ABG Oxyhemoglobin ABG Sodium ABG Chloride ABG Glucose Oxyhemoglobin Sodium Potassium Chloride Carbon Dioxide BUN Creatinine Glucose POC Glucose 126 H 148 H Lactic Acid Calcium Phosphorus Magnesium AST ALT Lactate Dehydrogenase Total Bilirubin Direct Bilirubin CK-MB (CK-2) C-Reactive Protein NT-Pro-B Natriuret Pep Total Protein Albumin Arterial Blood Glucose Urine WBC (Auto) Urine Creatinine Digoxin 01/21/20 01/21/20 01/21/20 12:32 18:20 23:54 WBC RBC Hgb Hct MCHC RDW MCV MCH Lymph % (Auto) [place] % (Auto) [place] # Eos # Lymph # (Auto) [place] # (Auto) Eos # (Auto) Seg Neutrophils % Seg Neuts % (Manual) Baso # (Auto) Lymphocytes % (Manual) Monocytes % (Manual) Eosinophils % (Manual) Basophils % (Manual) Seg Neutrophils # Seg Neutrophils # Man Lymphocytes # (Manual) Monocytes # (Manual) Eosinophils # (Manual) Nucleated RBC % Basophils # (Manual) PT INR APTT Heparin Anti-Xa Level 1.28 H ABG pH POC ABG pO2 ABG pO2 ABG HCO3 ABG O2 Saturation ABG Base Excess POC ABG pCO2 ABG Hemoglobin ABG Oxyhemoglobin ABG Sodium ABG Chloride ABG Glucose Oxyhemoglobin Sodium Potassium Chloride Carbon Dioxide BUN Creatinine Glucose POC Glucose 112 H 146 H Lactic Acid Calcium Phosphorus Magnesium AST ALT Lactate Dehydrogenase Total Bilirubin Direct Bilirubin CK-MB (CK-2) C-Reactive Protein NT-Pro-B Natriuret Pep Total Protein Albumin Arterial Blood Glucose Urine WBC (Auto) Urine Creatinine Digoxin 01/22/20 01/22/20 01/22/20 04:45 04:45 05:48 WBC RBC Hgb 9.3 L Hct 29.0 L MCHC RDW MCV MCH Lymph % (Auto) [place] % (Auto) [place] # Eos # Lymph # (Auto) [place] # (Auto) Eos # (Auto) Seg Neutrophils % Seg Neuts % (Manual) Baso # (Auto) Lymphocytes % (Manual) Monocytes % (Manual) Eosinophils % (Manual) Basophils % (Manual) Seg Neutrophils # Seg Neutrophils # Man Lymphocytes # (Manual) Monocytes # (Manual) Eosinophils # (Manual) Nucleated RBC % Basophils # (Manual) PT INR APTT Heparin Anti-Xa Level 1.34 H ABG pH POC ABG pO2 ABG pO2 ABG HCO3 ABG O2 Saturation ABG Base Excess POC ABG pCO2 ABG Hemoglobin ABG Oxyhemoglobin ABG Sodium ABG Chloride ABG Glucose Oxyhemoglobin Sodium Potassium Chloride Carbon Dioxide BUN Creatinine Glucose POC Glucose 142 H Lactic Acid Calcium Phosphorus Magnesium AST ALT Lactate Dehydrogenase Total Bilirubin Direct Bilirubin CK-MB (CK-2) C-Reactive Protein NT-Pro-B Natriuret Pep Total Protein Albumin Arterial Blood Glucose Urine WBC (Auto) Urine Creatinine Digoxin 01/22/20 01/22/20 01/22/20 08:09 08:22 09:58 WBC RBC Hgb Hct MCHC RDW MCV MCH Lymph % (Auto) [place] % (Auto) [place] # Eos # Lymph # (Auto) [place] # (Auto) Eos # (Auto) Seg Neutrophils % Seg Neuts % (Manual) Baso # (Auto) Lymphocytes % (Manual) Monocytes % (Manual) Eosinophils % (Manual) Basophils % (Manual) Seg Neutrophils # Seg Neutrophils # Man Lymphocytes # (Manual) Monocytes # (Manual) Eosinophils # (Manual) Nucleated RBC % Basophils # (Manual) PT 16.9 H INR 1.34 H APTT Heparin Anti-Xa Level ABG pH POC ABG pO2 ABG pO2 ABG HCO3 ABG O2 Saturation ABG Base Excess POC ABG pCO2 ABG Hemoglobin ABG Oxyhemoglobin ABG Sodium ABG Chloride ABG Glucose Oxyhemoglobin Sodium Potassium Chloride 97.8 L Carbon Dioxide BUN 29 H Creatinine Glucose 128 H POC Glucose 131 H Lactic Acid Calcium Phosphorus Magnesium AST ALT Lactate Dehydrogenase Total Bilirubin Direct Bilirubin CK-MB (CK-2) C-Reactive Protein NT-Pro-B Natriuret Pep Total Protein Albumin Arterial Blood Glucose Urine WBC (Auto) Urine Creatinine Digoxin 01/22/20 01/22/20 01/22/20 12:44 16:13 18:18 WBC RBC Hgb Hct MCHC RDW MCV MCH Lymph % (Auto) [place] % (Auto) [place] # Eos # Lymph # (Auto) [place] # (Auto) Eos # (Auto) Seg Neutrophils % Seg Neuts % (Manual) Baso # (Auto) Lymphocytes % (Manual) Monocytes % (Manual) Eosinophils % (Manual) Basophils % (Manual) Seg Neutrophils # Seg Neutrophils # Man Lymphocytes # (Manual) Monocytes # (Manual) Eosinophils # (Manual) Nucleated RBC % Basophils # (Manual) PT INR APTT Heparin Anti-Xa Level ABG pH POC ABG pO2 ABG pO2 ABG HCO3 ABG O2 Saturation ABG Base Excess POC ABG pCO2 ABG Hemoglobin ABG Oxyhemoglobin ABG Sodium ABG Chloride ABG Glucose Oxyhemoglobin Sodium Potassium Chloride Carbon Dioxide BUN Creatinine Glucose POC Glucose 156 H 133 H 155 H Lactic Acid Calcium Phosphorus Magnesium AST ALT Lactate Dehydrogenase Total Bilirubin Direct Bilirubin CK-MB (CK-2) C-Reactive Protein NT-Pro-B Natriuret Pep Total Protein Albumin Arterial Blood Glucose Urine WBC (Auto) Urine Creatinine Digoxin 01/22/20 01/23/20 01/23/20 23:22 05:37 12:59 WBC RBC Hgb Hct MCHC RDW MCV MCH Lymph % (Auto) [place] % (Auto) [place] # Eos # Lymph # (Auto) [place] # (Auto) Eos # (Auto) Seg Neutrophils % Seg Neuts % (Manual) Baso # (Auto) Lymphocytes % (Manual) Monocytes % (Manual) Eosinophils % (Manual) Basophils % (Manual) Seg Neutrophils # Seg Neutrophils # Man Lymphocytes # (Manual) Monocytes # (Manual) Eosinophils # (Manual) Nucleated RBC % Basophils # (Manual) PT INR APTT Heparin Anti-Xa Level ABG pH POC ABG pO2 ABG pO2 ABG HCO3 ABG O2 Saturation ABG Base Excess POC ABG pCO2 ABG Hemoglobin ABG Oxyhemoglobin ABG Sodium ABG Chloride ABG Glucose Oxyhemoglobin Sodium Potassium Chloride Carbon Dioxide BUN Creatinine Glucose POC Glucose 148 H 163 H 175 H Lactic Acid Calcium Phosphorus Magnesium AST ALT Lactate Dehydrogenase Total Bilirubin Direct Bilirubin CK-MB (CK-2) C-Reactive Protein NT-Pro-B Natriuret Pep Total Protein Albumin Arterial Blood Glucose Urine WBC (Auto) Urine Creatinine Digoxin 01/23/20 01/23/20 01/24/20 17:28 23:56 04:30 WBC RBC 3.46 L Hgb 8.8 L Hct 27.8 L MCHC RDW 18.2 H MCV 81 L MCH 25 L Lymph % (Auto) [place] % (Auto) 7.8 H [place] # Eos # Lymph # (Auto) [place] # (Auto) Eos # (Auto) Seg Neutrophils % Seg Neuts % (Manual) Baso # (Auto) Lymphocytes % (Manual) Monocytes % (Manual) Eosinophils % (Manual) Basophils % (Manual) Seg Neutrophils # Seg Neutrophils # Man Lymphocytes # (Manual) Monocytes # (Manual) Eosinophils # (Manual) Nucleated RBC % Basophils # (Manual) PT INR APTT Heparin Anti-Xa Level ABG pH POC ABG pO2 ABG pO2 ABG HCO3 ABG O2 Saturation ABG Base Excess POC ABG pCO2 ABG Hemoglobin ABG Oxyhemoglobin ABG Sodium ABG Chloride ABG Glucose Oxyhemoglobin Sodium Potassium Chloride Carbon Dioxide BUN Creatinine Glucose POC Glucose 165 H 177 H Lactic Acid Calcium Phosphorus Magnesium AST ALT Lactate Dehydrogenase Total Bilirubin Direct Bilirubin CK-MB (CK-2) C-Reactive Protein NT-Pro-B Natriuret Pep Total Protein Albumin Arterial Blood Glucose Urine WBC (Auto) Urine Creatinine Digoxin 01/24/20 01/24/20 01/24/20 04:30 07:18 12:06 WBC RBC Hgb Hct MCHC RDW MCV MCH Lymph % (Auto) [place] % (Auto) [place] # Eos # Lymph # (Auto) [place] # (Auto) Eos # (Auto) Seg Neutrophils % Seg Neuts % (Manual) Baso # (Auto) Lymphocytes % (Manual) Monocytes % (Manual) Eosinophils % (Manual) Basophils % (Manual) Seg Neutrophils # Seg Neutrophils # Man Lymphocytes # (Manual) Monocytes # (Manual) Eosinophils # (Manual) Nucleated RBC % Basophils # (Manual) PT INR APTT Heparin Anti-Xa Level ABG pH POC ABG pO2 ABG pO2 ABG HCO3 ABG O2 Saturation ABG Base Excess POC ABG pCO2 ABG Hemoglobin ABG Oxyhemoglobin ABG Sodium ABG Chloride ABG Glucose Oxyhemoglobin Sodium Potassium Chloride 97.9 L Carbon Dioxide BUN 31 H Creatinine Glucose 146 H POC Glucose 151 H 133 H Lactic Acid Calcium Phosphorus Magnesium AST ALT Lactate Dehydrogenase Total Bilirubin Direct Bilirubin CK-MB (CK-2) C-Reactive Protein NT-Pro-B Natriuret Pep Total Protein Albumin Arterial Blood Glucose Urine WBC (Auto) Urine Creatinine Digoxin 01/24/20 01/25/20 01/25/20 17:36 00:08 04:25 WBC RBC 3.50 L Hgb 8.7 L Hct 27.9 L MCHC 31 L RDW 18.2 H MCV 80 L MCH 25 L Lymph % (Auto) [place] % (Auto) 8.5 H [place] # Eos # Lymph # (Auto) [place] # (Auto) Eos # (Auto) Seg Neutrophils % Seg Neuts % (Manual) Baso # (Auto) Lymphocytes % (Manual) Monocytes % (Manual) Eosinophils % (Manual) Basophils % (Manual) Seg Neutrophils # Seg Neutrophils # Man Lymphocytes # (Manual) Monocytes # (Manual) Eosinophils # (Manual) Nucleated RBC % Basophils # (Manual) PT INR APTT Heparin Anti-Xa Level ABG pH POC ABG pO2 ABG pO2 ABG HCO3 ABG O2 Saturation ABG Base Excess POC ABG pCO2 ABG Hemoglobin ABG Oxyhemoglobin ABG Sodium ABG Chloride ABG Glucose Oxyhemoglobin Sodium Potassium Chloride Carbon Dioxide BUN Creatinine Glucose POC Glucose 133 H 129 H Lactic Acid Calcium Phosphorus Magnesium AST ALT Lactate Dehydrogenase Total Bilirubin Direct Bilirubin CK-MB (CK-2) C-Reactive Protein NT-Pro-B Natriuret Pep Total Protein Albumin Arterial Blood Glucose Urine WBC (Auto) Urine Creatinine Digoxin 01/25/20 01/25/20 01/25/20 04:25 05:38 11:52 WBC RBC Hgb Hct MCHC RDW MCV MCH Lymph % (Auto) [place] % (Auto) [place] # Eos # Lymph # (Auto) [place] # (Auto) Eos # (Auto) Seg Neutrophils % Seg Neuts % (Manual) Baso # (Auto) Lymphocytes % (Manual) Monocytes % (Manual) Eosinophils % (Manual) Basophils % (Manual) Seg Neutrophils # Seg Neutrophils # Man Lymphocytes # (Manual) Monocytes # (Manual) Eosinophils # (Manual) Nucleated RBC % Basophils # (Manual) PT INR APTT Heparin Anti-Xa Level ABG pH POC ABG pO2 ABG pO2 ABG HCO3 ABG O2 Saturation ABG Base Excess POC ABG pCO2 ABG Hemoglobin ABG Oxyhemoglobin ABG Sodium ABG Chloride ABG Glucose Oxyhemoglobin Sodium Potassium Chloride Carbon Dioxide BUN 30 H Creatinine Glucose 134 H POC Glucose 129 H 134 H Lactic Acid Calcium Phosphorus Magnesium AST ALT Lactate Dehydrogenase Total Bilirubin Direct Bilirubin CK-MB (CK-2) C-Reactive Protein NT-Pro-B Natriuret Pep Total Protein Albumin Arterial Blood Glucose Urine WBC (Auto) Urine Creatinine Digoxin 01/25/20 01/25/20 01/26/20 17:13 21:02 00:59 WBC RBC Hgb Hct MCHC RDW MCV MCH Lymph % (Auto) [place] % (Auto) [place] # Eos # Lymph # (Auto) [place] # (Auto) Eos # (Auto) Seg Neutrophils % Seg Neuts % (Manual) Baso # (Auto) Lymphocytes % (Manual) Monocytes % (Manual) Eosinophils % (Manual) Basophils % (Manual) Seg Neutrophils # Seg Neutrophils # Man Lymphocytes # (Manual) Monocytes # (Manual) Eosinophils # (Manual) Nucleated RBC % Basophils # (Manual) PT INR APTT Heparin Anti-Xa Level ABG pH POC ABG pO2 ABG pO2 57.5 L ABG HCO3 31.7 H ABG O2 Saturation 90.3 L ABG Base Excess 6.6 H POC ABG pCO2 ABG Hemoglobin 13.0 L ABG Oxyhemoglobin ABG Sodium ABG Chloride ABG Glucose Oxyhemoglobin 87.5 L Sodium Potassium Chloride Carbon Dioxide BUN Creatinine Glucose POC Glucose 124 H 196 H Lactic Acid Calcium Phosphorus Magnesium AST ALT Lactate Dehydrogenase Total Bilirubin Direct Bilirubin CK-MB (CK-2) C-Reactive Protein NT-Pro-B Natriuret Pep Total Protein Albumin Arterial Blood Glucose Urine WBC (Auto) Urine Creatinine Digoxin 01/26/20 01/26/20 01/26/20 03:20 05:46 12:46 WBC RBC Hgb 9.2 L Hct 29.4 L MCHC RDW MCV MCH Lymph % (Auto) [place] % (Auto) [place] # Eos # Lymph # (Auto) [place] # (Auto) Eos # (Auto) Seg Neutrophils % Seg Neuts % (Manual) Baso # (Auto) Lymphocytes % (Manual) Monocytes % (Manual) Eosinophils % (Manual) Basophils % (Manual) Seg Neutrophils # Seg Neutrophils # Man Lymphocytes # (Manual) Monocytes # (Manual) Eosinophils # (Manual) Nucleated RBC % Basophils # (Manual) PT INR APTT Heparin Anti-Xa Level ABG pH POC ABG pO2 ABG pO2 ABG HCO3 ABG O2 Saturation ABG Base Excess POC ABG pCO2 ABG Hemoglobin ABG Oxyhemoglobin ABG Sodium ABG Chloride ABG Glucose Oxyhemoglobin Sodium Potassium Chloride Carbon Dioxide BUN Creatinine Glucose POC Glucose 141 H 122 H Lactic Acid Calcium Phosphorus Magnesium AST ALT Lactate Dehydrogenase Total Bilirubin Direct Bilirubin CK-MB (CK-2) C-Reactive Protein NT-Pro-B Natriuret Pep Total Protein Albumin Arterial Blood Glucose Urine WBC (Auto) Urine Creatinine Digoxin 01/26/20 01/26/20 01/27/20 18:03 23:55 04:47 WBC RBC Hgb Hct MCHC RDW MCV MCH Lymph % (Auto) [place] % (Auto) [place] # Eos # Lymph # (Auto) [place] # (Auto) Eos # (Auto) Seg Neutrophils % Seg Neuts % (Manual) Baso # (Auto) Lymphocytes % (Manual) Monocytes % (Manual) Eosinophils % (Manual) Basophils % (Manual) Seg Neutrophils # Seg Neutrophils # Man Lymphocytes # (Manual) Monocytes # (Manual) Eosinophils # (Manual) Nucleated RBC % Basophils # (Manual) PT INR APTT Heparin Anti-Xa Level ABG pH POC ABG pO2 ABG pO2 ABG HCO3 ABG O2 Saturation ABG Base Excess POC ABG pCO2 ABG Hemoglobin ABG Oxyhemoglobin ABG Sodium ABG Chloride ABG Glucose Oxyhemoglobin Sodium Potassium Chloride Carbon Dioxide BUN 30 H Creatinine 0.7 L Glucose 135 H POC Glucose 142 H 159 H Lactic Acid Calcium Phosphorus Magnesium AST ALT Lactate Dehydrogenase Total Bilirubin Direct Bilirubin CK-MB (CK-2) C-Reactive Protein NT-Pro-B Natriuret Pep Total Protein Albumin Arterial Blood Glucose Urine WBC (Auto) Urine Creatinine Digoxin 01/27/20 01/27/20 01/27/20 05:43 12:06 17:16 WBC RBC Hgb Hct MCHC RDW MCV MCH Lymph % (Auto) [place] % (Auto) [place] # Eos # Lymph # (Auto) [place] # (Auto) Eos # (Auto) Seg Neutrophils % Seg Neuts % (Manual) Baso # (Auto) Lymphocytes % (Manual) Monocytes % (Manual) Eosinophils % (Manual) Basophils % (Manual) Seg Neutrophils # Seg Neutrophils # Man Lymphocytes # (Manual) Monocytes # (Manual) Eosinophils # (Manual) Nucleated RBC % Basophils # (Manual) PT INR APTT Heparin Anti-Xa Level ABG pH POC ABG pO2 ABG pO2 ABG HCO3 ABG O2 Saturation ABG Base Excess POC ABG pCO2 ABG Hemoglobin ABG Oxyhemoglobin ABG Sodium ABG Chloride ABG Glucose Oxyhemoglobin Sodium Potassium Chloride Carbon Dioxide BUN Creatinine Glucose POC Glucose 143 H 142 H 128 H Lactic Acid Calcium Phosphorus Magnesium AST ALT Lactate Dehydrogenase Total Bilirubin Direct Bilirubin CK-MB (CK-2) C-Reactive Protein NT-Pro-B Natriuret Pep Total Protein Albumin Arterial Blood Glucose Urine WBC (Auto) Urine Creatinine Digoxin 01/27/20 01/28/20 01/28/20 23:55 04:37 05:55 WBC RBC Hgb 9.4 L Hct 29.9 L MCHC RDW MCV MCH Lymph % (Auto) [place] % (Auto) [place] # Eos # Lymph # (Auto) [place] # (Auto) Eos # (Auto) Seg Neutrophils % Seg Neuts % (Manual) Baso # (Auto) Lymphocytes % (Manual) Monocytes % (Manual) Eosinophils % (Manual) Basophils % (Manual) Seg Neutrophils # Seg Neutrophils # Man Lymphocytes # (Manual) Monocytes # (Manual) Eosinophils # (Manual) Nucleated RBC % Basophils # (Manual) PT INR APTT Heparin Anti-Xa Level ABG pH POC ABG pO2 ABG pO2 ABG HCO3 ABG O2 Saturation ABG Base Excess POC ABG pCO2 ABG Hemoglobin ABG Oxyhemoglobin ABG Sodium ABG Chloride ABG Glucose Oxyhemoglobin Sodium Potassium Chloride Carbon Dioxide BUN Creatinine Glucose POC Glucose 166 H 169 H Lactic Acid Calcium Phosphorus Magnesium AST ALT Lactate Dehydrogenase Total Bilirubin Direct Bilirubin CK-MB (CK-2) C-Reactive Protein NT-Pro-B Natriuret Pep Total Protein Albumin Arterial Blood Glucose Urine WBC (Auto) Urine Creatinine Digoxin 01/28/20 01/28/20 01/28/20 11:58 17:26 23:46 WBC RBC Hgb Hct MCHC RDW MCV MCH Lymph % (Auto) [place] % (Auto) [place] # Eos # Lymph # (Auto) [place] # (Auto) Eos # (Auto) Seg Neutrophils % Seg Neuts % (Manual) Baso # (Auto) Lymphocytes % (Manual) Monocytes % (Manual) Eosinophils % (Manual) Basophils % (Manual) Seg Neutrophils # Seg Neutrophils # Man Lymphocytes # (Manual) Monocytes # (Manual) Eosinophils # (Manual) Nucleated RBC % Basophils # (Manual) PT INR APTT Heparin Anti-Xa Level ABG pH POC ABG pO2 ABG pO2 ABG HCO3 ABG O2 Saturation ABG Base Excess POC ABG pCO2 ABG Hemoglobin ABG Oxyhemoglobin ABG Sodium ABG Chloride ABG Glucose Oxyhemoglobin Sodium Potassium Chloride Carbon Dioxide BUN Creatinine Glucose POC Glucose 130 H 126 H 150 H Lactic Acid Calcium Phosphorus Magnesium AST ALT Lactate Dehydrogenase Total Bilirubin Direct Bilirubin CK-MB (CK-2) C-Reactive Protein NT-Pro-B Natriuret Pep Total Protein Albumin Arterial Blood Glucose Urine WBC (Auto) Urine Creatinine Digoxin 01/29/20 01/29/20 01/29/20 04:55 06:00 12:28 WBC RBC Hgb Hct MCHC RDW MCV MCH Lymph % (Auto) [place] % (Auto) [place] # Eos # Lymph # (Auto) [place] # (Auto) Eos # (Auto) Seg Neutrophils % Seg Neuts % (Manual) Baso # (Auto) Lymphocytes % (Manual) Monocytes % (Manual) Eosinophils % (Manual) Basophils % (Manual) Seg Neutrophils # Seg Neutrophils # Man Lymphocytes # (Manual) Monocytes # (Manual) Eosinophils # (Manual) Nucleated RBC % Basophils # (Manual) PT INR APTT Heparin Anti-Xa Level ABG pH POC ABG pO2 ABG pO2 ABG HCO3 ABG O2 Saturation ABG Base Excess POC ABG pCO2 ABG Hemoglobin ABG Oxyhemoglobin ABG Sodium ABG Chloride ABG Glucose Oxyhemoglobin Sodium Potassium Chloride Carbon Dioxide 34 H BUN Creatinine 0.6 L Glucose 152 H POC Glucose 157 H 156 H Lactic Acid Calcium Phosphorus Magnesium AST ALT Lactate Dehydrogenase Total Bilirubin Direct Bilirubin CK-MB (CK-2) C-Reactive Protein NT-Pro-B Natriuret Pep Total Protein Albumin Arterial Blood Glucose Urine WBC (Auto) Urine Creatinine Digoxin 01/29/20 01/30/20 01/30/20 19:06 00:29 05:39 WBC RBC Hgb Hct MCHC RDW MCV MCH Lymph % (Auto) [place] % (Auto) [place] # Eos # Lymph # (Auto) [place] # (Auto) Eos # (Auto) Seg Neutrophils % Seg Neuts % (Manual) Baso # (Auto) Lymphocytes % (Manual) Monocytes % (Manual) Eosinophils % (Manual) Basophils % (Manual) Seg Neutrophils # Seg Neutrophils # Man Lymphocytes # (Manual) Monocytes # (Manual) Eosinophils # (Manual) Nucleated RBC % Basophils # (Manual) PT INR APTT Heparin Anti-Xa Level ABG pH POC ABG pO2 ABG pO2 ABG HCO3 ABG O2 Saturation ABG Base Excess POC ABG pCO2 ABG Hemoglobin ABG Oxyhemoglobin ABG Sodium ABG Chloride ABG Glucose Oxyhemoglobin Sodium Potassium Chloride Carbon Dioxide BUN Creatinine Glucose POC Glucose 152 H 132 H 159 H Lactic Acid Calcium Phosphorus Magnesium AST ALT Lactate Dehydrogenase Total Bilirubin Direct Bilirubin CK-MB (CK-2) C-Reactive Protein NT-Pro-B Natriuret Pep Total Protein Albumin Arterial Blood Glucose Urine WBC (Auto) Urine Creatinine Digoxin 01/30/20 01/30/20 01/30/20 12:27 17:42 23:28 WBC RBC Hgb Hct MCHC RDW MCV MCH Lymph % (Auto) [place] % (Auto) [place] # Eos # Lymph # (Auto) [place] # (Auto) Eos # (Auto) Seg Neutrophils % Seg Neuts % (Manual) Baso # (Auto) Lymphocytes % (Manual) Monocytes % (Manual) Eosinophils % (Manual) Basophils % (Manual) Seg Neutrophils # Seg Neutrophils # Man Lymphocytes # (Manual) Monocytes # (Manual) Eosinophils # (Manual) Nucleated RBC % Basophils # (Manual) PT INR APTT Heparin Anti-Xa Level ABG pH POC ABG pO2 ABG pO2 ABG HCO3 ABG O2 Saturation ABG Base Excess POC ABG pCO2 ABG Hemoglobin ABG Oxyhemoglobin ABG Sodium ABG Chloride ABG Glucose Oxyhemoglobin Sodium Potassium Chloride Carbon Dioxide BUN Creatinine Glucose POC Glucose 151 H 144 H 164 H Lactic Acid Calcium Phosphorus Magnesium AST ALT Lactate Dehydrogenase Total Bilirubin Direct Bilirubin CK-MB (CK-2) C-Reactive Protein NT-Pro-B Natriuret Pep Total Protein Albumin Arterial Blood Glucose Urine WBC (Auto) Urine Creatinine Digoxin 01/31/20 01/31/20 01/31/20 05:51 11:51 18:06 WBC RBC Hgb Hct MCHC RDW MCV MCH Lymph % (Auto) [place] % (Auto) [place] # Eos # Lymph # (Auto) [place] # (Auto) Eos # (Auto) Seg Neutrophils % Seg Neuts % (Manual) Baso # (Auto) Lymphocytes % (Manual) Monocytes % (Manual) Eosinophils % (Manual) Basophils % (Manual) Seg Neutrophils # Seg Neutrophils # Man Lymphocytes # (Manual) Monocytes # (Manual) Eosinophils # (Manual) Nucleated RBC % Basophils # (Manual) PT INR APTT Heparin Anti-Xa Level ABG pH POC ABG pO2 ABG pO2 ABG HCO3 ABG O2 Saturation ABG Base Excess POC ABG pCO2 ABG Hemoglobin ABG Oxyhemoglobin ABG Sodium ABG Chloride ABG Glucose Oxyhemoglobin Sodium Potassium Chloride Carbon Dioxide BUN Creatinine Glucose POC Glucose 131 H 167 H 210 H Lactic Acid Calcium Phosphorus Magnesium AST ALT Lactate Dehydrogenase Total Bilirubin Direct Bilirubin CK-MB (CK-2) C-Reactive Protein NT-Pro-B Natriuret Pep Total Protein Albumin Arterial Blood Glucose Urine WBC (Auto) Urine Creatinine Digoxin 01/31/20 01/31/20 02/01/20 19:24 Unknown 00:34 WBC RBC Hgb Hct MCHC RDW MCV MCH Lymph % (Auto) [place] % (Auto) [place] # Eos # Lymph # (Auto) [place] # (Auto) Eos # (Auto) Seg Neutrophils % Seg Neuts % (Manual) Baso # (Auto) Lymphocytes % (Manual) Monocytes % (Manual) Eosinophils % (Manual) Basophils % (Manual) Seg Neutrophils # Seg Neutrophils # Man Lymphocytes # (Manual) Monocytes # (Manual) Eosinophils # (Manual) Nucleated RBC % Basophils # (Manual) PT INR APTT Heparin Anti-Xa Level ABG pH POC ABG pO2 ABG pO2 ABG HCO3 ABG O2 Saturation ABG Base Excess POC ABG pCO2 ABG Hemoglobin ABG Oxyhemoglobin ABG Sodium ABG Chloride ABG Glucose Oxyhemoglobin Sodium Potassium Chloride 95.3 L Carbon Dioxide 33 H BUN 36 H Creatinine Glucose 187 H POC Glucose 116 H Lactic Acid Calcium Phosphorus Magnesium AST ALT Lactate Dehydrogenase Total Bilirubin Direct Bilirubin CK-MB (CK-2) C-Reactive Protein NT-Pro-B Natriuret Pep Total Protein Albumin Arterial Blood Glucose Urine WBC (Auto) Urine Creatinine 57.4 H Digoxin 02/01/20 02/01/20 02/01/20 05:24 10:40 12:29 WBC RBC Hgb Hct MCHC RDW MCV MCH Lymph % (Auto) [place] % (Auto) [place] # Eos # Lymph # (Auto) [place] # (Auto) Eos # (Auto) Seg Neutrophils % Seg Neuts % (Manual) Baso # (Auto) Lymphocytes % (Manual) Monocytes % (Manual) Eosinophils % (Manual) Basophils % (Manual) Seg Neutrophils # Seg Neutrophils # Man Lymphocytes # (Manual) Monocytes # (Manual) Eosinophils # (Manual) Nucleated RBC % Basophils # (Manual) PT INR APTT Heparin Anti-Xa Level ABG pH POC ABG pO2 ABG pO2 ABG HCO3 ABG O2 Saturation ABG Base Excess POC ABG pCO2 ABG Hemoglobin ABG Oxyhemoglobin ABG Sodium ABG Chloride ABG Glucose Oxyhemoglobin Sodium Potassium Chloride Carbon Dioxide BUN Creatinine Glucose POC Glucose 142 H 165 H 151 H Lactic Acid Calcium Phosphorus Magnesium AST ALT Lactate Dehydrogenase Total Bilirubin Direct Bilirubin CK-MB (CK-2) C-Reactive Protein NT-Pro-B Natriuret Pep Total Protein Albumin Arterial Blood Glucose Urine WBC (Auto) Urine Creatinine Digoxin 02/01/20 02/01/20 02/02/20 17:16 23:23 06:36 WBC RBC Hgb Hct MCHC RDW MCV MCH Lymph % (Auto) [place] % (Auto) [place] # Eos # Lymph # (Auto) [place] # (Auto) Eos # (Auto) Seg Neutrophils % Seg Neuts % (Manual) Baso # (Auto) Lymphocytes % (Manual) Monocytes % (Manual) Eosinophils % (Manual) Basophils % (Manual) Seg Neutrophils # Seg Neutrophils # Man Lymphocytes # (Manual) Monocytes # (Manual) Eosinophils # (Manual) Nucleated RBC % Basophils # (Manual) PT INR APTT Heparin Anti-Xa Level ABG pH POC ABG pO2 ABG pO2 ABG HCO3 ABG O2 Saturation ABG Base Excess POC ABG pCO2 ABG Hemoglobin ABG Oxyhemoglobin ABG Sodium ABG Chloride ABG Glucose Oxyhemoglobin Sodium Potassium Chloride Carbon Dioxide BUN Creatinine Glucose POC Glucose 137 H 145 H 181 H Lactic Acid Calcium Phosphorus Magnesium AST ALT Lactate Dehydrogenase Total Bilirubin Direct Bilirubin CK-MB (CK-2) C-Reactive Protein NT-Pro-B Natriuret Pep Total Protein Albumin Arterial Blood Glucose Urine WBC (Auto) Urine Creatinine Digoxin 02/02/20 02/02/20 02/02/20 10:01 12:05 17:54 WBC RBC Hgb Hct MCHC RDW MCV MCH Lymph % (Auto) [place] % (Auto) [place] # Eos # Lymph # (Auto) [place] # (Auto) Eos # (Auto) Seg Neutrophils % Seg Neuts % (Manual) Baso # (Auto) Lymphocytes % (Manual) Monocytes % (Manual) Eosinophils % (Manual) Basophils % (Manual) Seg Neutrophils # Seg Neutrophils # Man Lymphocytes # (Manual) Monocytes # (Manual) Eosinophils # (Manual) Nucleated RBC % Basophils # (Manual) PT INR APTT Heparin Anti-Xa Level ABG pH POC ABG pO2 ABG pO2 ABG HCO3 ABG O2 Saturation ABG Base Excess POC ABG pCO2 ABG Hemoglobin ABG Oxyhemoglobin ABG Sodium ABG Chloride ABG Glucose Oxyhemoglobin Sodium Potassium Chloride 95.3 L Carbon Dioxide BUN 44 H Creatinine Glucose 234 H POC Glucose 184 H 127 H Lactic Acid Calcium Phosphorus Magnesium AST 363 H ALT 457 H Lactate Dehydrogenase Total Bilirubin Direct Bilirubin CK-MB (CK-2) C-Reactive Protein NT-Pro-B Natriuret Pep Total Protein Albumin 3.0 L Arterial Blood Glucose Urine WBC (Auto) Urine Creatinine Digoxin 02/02/20 02/03/20 02/03/20 23:47 05:32 07:04 WBC 13.0 H RBC Hgb 9.5 L Hct 30.8 L MCHC 31 L RDW 19.6 H MCV 81 L MCH 25 L Lymph % (Auto) [place] % (Auto) 9.4 H [place] # Eos # Lymph # (Auto) [place] # (Auto) 1.2 H Eos # (Auto) Seg Neutrophils % 72.3 H Seg Neuts % (Manual) Baso # (Auto) Lymphocytes % (Manual) Monocytes % (Manual) Eosinophils % (Manual) Basophils % (Manual) Seg Neutrophils # 9.4 H Seg Neutrophils # Man Lymphocytes # (Manual) Monocytes # (Manual) Eosinophils # (Manual) Nucleated RBC % Basophils # (Manual) PT INR APTT Heparin Anti-Xa Level ABG pH POC ABG pO2 ABG pO2 ABG HCO3 ABG O2 Saturation ABG Base Excess POC ABG pCO2 ABG Hemoglobin ABG Oxyhemoglobin ABG Sodium ABG Chloride ABG Glucose Oxyhemoglobin Sodium Potassium Chloride Carbon Dioxide BUN Creatinine Glucose POC Glucose 124 H 129 H Lactic Acid Calcium Phosphorus Magnesium AST ALT Lactate Dehydrogenase Total Bilirubin Direct Bilirubin CK-MB (CK-2) C-Reactive Protein NT-Pro-B Natriuret Pep Total Protein Albumin Arterial Blood Glucose Urine WBC (Auto) Urine Creatinine Digoxin 02/03/20 02/03/20 02/03/20 07:04 11:32 12:49 WBC RBC Hgb Hct MCHC RDW MCV MCH Lymph % (Auto) [place] % (Auto) [place] # Eos # Lymph # (Auto) [place] # (Auto) Eos # (Auto) Seg Neutrophils % Seg Neuts % (Manual) Baso # (Auto) Lymphocytes % (Manual) Monocytes % (Manual) Eosinophils % (Manual) Basophils % (Manual) Seg Neutrophils # Seg Neutrophils # Man Lymphocytes # (Manual) Monocytes # (Manual) Eosinophils # (Manual) Nucleated RBC % Basophils # (Manual) PT INR APTT Heparin Anti-Xa Level ABG pH POC ABG pO2 ABG pO2 ABG HCO3 ABG O2 Saturation ABG Base Excess POC ABG pCO2 ABG Hemoglobin ABG Oxyhemoglobin ABG Sodium ABG Chloride ABG Glucose Oxyhemoglobin Sodium Potassium Chloride 97.9 L Carbon Dioxide 33 H BUN 39 H Creatinine Glucose 119 H POC Glucose 138 H Lactic Acid Calcium Phosphorus Magnesium 2.60 H AST ALT Lactate Dehydrogenase Total Bilirubin Direct Bilirubin CK-MB (CK-2) C-Reactive Protein NT-Pro-B Natriuret Pep Total Protein Albumin Arterial Blood Glucose Urine WBC (Auto) Urine Creatinine Digoxin 02/03/20 02/04/20 02/04/20 18:28 16:24 16:24 WBC RBC 3.38 L Hgb 8.6 L Hct 26.9 L MCHC RDW 19.5 H MCV 80 L MCH 26 L Lymph % (Auto) [place] % (Auto) [place] # Eos # Lymph # (Auto) [place] # (Auto) Eos # (Auto) Seg Neutrophils % Seg Neuts % (Manual) Baso # (Auto) Lymphocytes % (Manual) Monocytes % (Manual) Eosinophils % (Manual) Basophils % (Manual) Seg Neutrophils # Seg Neutrophils # Man Lymphocytes # (Manual) Monocytes # (Manual) Eosinophils # (Manual) Nucleated RBC % Basophils # (Manual) PT INR APTT Heparin Anti-Xa Level ABG pH POC ABG pO2 ABG pO2 ABG HCO3 ABG O2 Saturation ABG Base Excess POC ABG pCO2 ABG Hemoglobin ABG Oxyhemoglobin ABG Sodium ABG Chloride ABG Glucose Oxyhemoglobin Sodium Potassium 3.4 L Chloride Carbon Dioxide 31 H BUN 37 H Creatinine Glucose 70 L POC Glucose 118 H Lactic Acid Calcium Phosphorus Magnesium AST 169 H ALT 394 H Lactate Dehydrogenase Total Bilirubin 1.50 H Direct Bilirubin CK-MB (CK-2) C-Reactive Protein NT-Pro-B Natriuret Pep Total Protein Albumin 2.9 L Arterial Blood Glucose Urine WBC (Auto) Urine Creatinine Digoxin 02/05/20 02/05/20 02/05/20 00:41 06:37 17:14 WBC RBC Hgb Hct MCHC RDW MCV MCH Lymph % (Auto) [place] % (Auto) [place] # Eos # Lymph # (Auto) [place] # (Auto) Eos # (Auto) Seg Neutrophils % Seg Neuts % (Manual) Baso # (Auto) Lymphocytes % (Manual) Monocytes % (Manual) Eosinophils % (Manual) Basophils % (Manual) Seg Neutrophils # Seg Neutrophils # Man Lymphocytes # (Manual) Monocytes # (Manual) Eosinophils # (Manual) Nucleated RBC % Basophils # (Manual) PT INR APTT Heparin Anti-Xa Level ABG pH POC ABG pO2 ABG pO2 ABG HCO3 ABG O2 Saturation ABG Base Excess POC ABG pCO2 ABG Hemoglobin ABG Oxyhemoglobin ABG Sodium ABG Chloride ABG Glucose Oxyhemoglobin Sodium Potassium 3.1 L Chloride Carbon Dioxide 35 H BUN 32 H Creatinine 0.7 L Glucose POC Glucose 69 L 127 H Lactic Acid Calcium Phosphorus Magnesium AST 134 H ALT 352 H Lactate Dehydrogenase Total Bilirubin 1.60 H Direct Bilirubin CK-MB (CK-2) C-Reactive Protein NT-Pro-B Natriuret Pep Total Protein Albumin 2.9 L Arterial Blood Glucose Urine WBC (Auto) Urine Creatinine Digoxin 02/05/20 02/06/20 02/06/20 23:43 05:32 08:01 WBC RBC Hgb Hct MCHC RDW MCV MCH Lymph % (Auto) [place] % (Auto) [place] # Eos # Lymph # (Auto) [place] # (Auto) Eos # (Auto) Seg Neutrophils % Seg Neuts % (Manual) Baso # (Auto) Lymphocytes % (Manual) Monocytes % (Manual) Eosinophils % (Manual) Basophils % (Manual) Seg Neutrophils # Seg Neutrophils # Man Lymphocytes # (Manual) Monocytes # (Manual) Eosinophils # (Manual) Nucleated RBC % Basophils # (Manual) PT INR APTT Heparin Anti-Xa Level ABG pH POC ABG pO2 ABG pO2 ABG HCO3 ABG O2 Saturation ABG Base Excess POC ABG pCO2 ABG Hemoglobin ABG Oxyhemoglobin ABG Sodium ABG Chloride ABG Glucose Oxyhemoglobin Sodium Potassium Chloride Carbon Dioxide BUN 40 H Creatinine Glucose 132 H POC Glucose 129 H 131 H Lactic Acid Calcium Phosphorus Magnesium AST ALT Lactate Dehydrogenase Total Bilirubin Direct Bilirubin CK-MB (CK-2) C-Reactive Protein NT-Pro-B Natriuret Pep Total Protein Albumin Arterial Blood Glucose Urine WBC (Auto) Urine Creatinine Digoxin 02/06/20 02/06/20 02/06/20 11:51 16:28 17:32 WBC RBC Hgb Hct MCHC RDW MCV MCH Lymph % (Auto) [place] % (Auto) [place] # Eos # Lymph # (Auto) [place] # (Auto) Eos # (Auto) Seg Neutrophils % Seg Neuts % (Manual) Baso # (Auto) Lymphocytes % (Manual) Monocytes % (Manual) Eosinophils % (Manual) Basophils % (Manual) Seg Neutrophils # Seg Neutrophils # Man Lymphocytes # (Manual) Monocytes # (Manual) Eosinophils # (Manual) Nucleated RBC % Basophils # (Manual) PT INR APTT Heparin Anti-Xa Level ABG pH POC ABG pO2 ABG pO2 ABG HCO3 ABG O2 Saturation ABG Base Excess POC ABG pCO2 ABG Hemoglobin ABG Oxyhemoglobin ABG Sodium ABG Chloride ABG Glucose Oxyhemoglobin Sodium Potassium Chloride Carbon Dioxide BUN Creatinine Glucose POC Glucose 167 H 129 H Lactic Acid Calcium Phosphorus Magnesium AST 824 H ALT 948 H Lactate Dehydrogenase Total Bilirubin 1.70 H Direct Bilirubin 1.2 H CK-MB (CK-2) C-Reactive Protein NT-Pro-B Natriuret Pep Total Protein Albumin 2.9 L Arterial Blood Glucose Urine WBC (Auto) Urine Creatinine Digoxin 02/07/20 02/07/20 02/07/20 00:11 04:57 04:57 WBC RBC Hgb 9.2 L Hct 29.7 L MCHC 31 L RDW 20.2 H MCV 80 L MCH 25 L Lymph % (Auto) [place] % (Auto) [place] # Eos # Lymph # (Auto) [place] # (Auto) Eos # (Auto) Seg Neutrophils % Seg Neuts % (Manual) Baso # (Auto) Lymphocytes % (Manual) Monocytes % (Manual) Eosinophils % (Manual) Basophils % (Manual) Seg Neutrophils # Seg Neutrophils # Man Lymphocytes # (Manual) Monocytes # (Manual) Eosinophils # (Manual) Nucleated RBC % Basophils # (Manual) PT INR APTT Heparin Anti-Xa Level ABG pH POC ABG pO2 ABG pO2 ABG HCO3 ABG O2 Saturation ABG Base Excess POC ABG pCO2 ABG Hemoglobin ABG Oxyhemoglobin ABG Sodium ABG Chloride ABG Glucose Oxyhemoglobin Sodium Potassium 3.4 L D Chloride Carbon Dioxide 32 H BUN 39 H Creatinine Glucose 106 H POC Glucose 121 H Lactic Acid Calcium Phosphorus Magnesium AST ALT Lactate Dehydrogenase Total Bilirubin Direct Bilirubin CK-MB (CK-2) C-Reactive Protein NT-Pro-B Natriuret Pep Total Protein Albumin Arterial Blood Glucose Urine WBC (Auto) Urine Creatinine Digoxin 02/07/20 02/07/20 02/07/20 15:03 15:03 17:11 WBC RBC Hgb Hct MCHC RDW MCV MCH Lymph % (Auto) [place] % (Auto) [place] # Eos # Lymph # (Auto) [place] # (Auto) Eos # (Auto) Seg Neutrophils % Seg Neuts % (Manual) Baso # (Auto) Lymphocytes % (Manual) Monocytes % (Manual) Eosinophils % (Manual) Basophils % (Manual) Seg Neutrophils # Seg Neutrophils # Man Lymphocytes # (Manual) Monocytes # (Manual) Eosinophils # (Manual) Nucleated RBC % Basophils # (Manual) PT 27.0 H INR 2.46 H APTT Heparin Anti-Xa Level ABG pH POC ABG pO2 ABG pO2 ABG HCO3 ABG O2 Saturation ABG Base Excess POC ABG pCO2 ABG Hemoglobin ABG Oxyhemoglobin ABG Sodium ABG Chloride ABG Glucose Oxyhemoglobin Sodium Potassium Chloride Carbon Dioxide BUN Creatinine Glucose POC Glucose 109 H Lactic Acid Calcium Phosphorus Magnesium AST 424 H ALT 796 H Lactate Dehydrogenase Total Bilirubin 1.60 H Direct Bilirubin 1.2 H CK-MB (CK-2) C-Reactive Protein NT-Pro-B Natriuret Pep Total Protein Albumin 2.9 L Arterial Blood Glucose Urine WBC (Auto) Urine Creatinine Digoxin 02/08/20 02/08/20 02/08/20 12:14 17:44 19:00 WBC RBC Hgb Hct MCHC RDW MCV MCH Lymph % (Auto) [place] % (Auto) [place] # Eos # Lymph # (Auto) [place] # (Auto) Eos # (Auto) Seg Neutrophils % Seg Neuts % (Manual) Baso # (Auto) Lymphocytes % (Manual) Monocytes % (Manual) Eosinophils % (Manual) Basophils % (Manual) Seg Neutrophils # Seg Neutrophils # Man Lymphocytes # (Manual) Monocytes # (Manual) Eosinophils # (Manual) Nucleated RBC % Basophils # (Manual) PT INR APTT Heparin Anti-Xa Level ABG pH POC ABG pO2 ABG pO2 ABG HCO3 ABG O2 Saturation ABG Base Excess POC ABG pCO2 ABG Hemoglobin ABG Oxyhemoglobin ABG Sodium ABG Chloride ABG Glucose Oxyhemoglobin Sodium Potassium Chloride Carbon Dioxide BUN Creatinine Glucose POC Glucose 111 H 107 H Lactic Acid Calcium Phosphorus Magnesium AST 309 H ALT 650 H Lactate Dehydrogenase Total Bilirubin 1.30 H Direct Bilirubin 0.9 H CK-MB (CK-2) C-Reactive Protein NT-Pro-B Natriuret Pep Total Protein 6.2 L Albumin 2.7 L Arterial Blood Glucose Urine WBC (Auto) Urine Creatinine Digoxin 02/09/20 02/09/20 02/09/20 05:41 12:28 18:07 WBC RBC Hgb Hct MCHC RDW MCV MCH Lymph % (Auto) [place] % (Auto) [place] # Eos # Lymph # (Auto) [place] # (Auto) Eos # (Auto) Seg Neutrophils % Seg Neuts % (Manual) Baso # (Auto) Lymphocytes % (Manual) Monocytes % (Manual) Eosinophils % (Manual) Basophils % (Manual) Seg Neutrophils # Seg Neutrophils # Man Lymphocytes # (Manual) Monocytes # (Manual) Eosinophils # (Manual) Nucleated RBC % Basophils # (Manual) PT INR APTT Heparin Anti-Xa Level ABG pH POC ABG pO2 ABG pO2 ABG HCO3 ABG O2 Saturation ABG Base Excess POC ABG pCO2 ABG Hemoglobin ABG Oxyhemoglobin ABG Sodium ABG Chloride ABG Glucose Oxyhemoglobin Sodium Potassium Chloride Carbon Dioxide BUN Creatinine Glucose POC Glucose 113 H 140 H 143 H Lactic Acid Calcium Phosphorus Magnesium AST ALT Lactate Dehydrogenase Total Bilirubin Direct Bilirubin CK-MB (CK-2) C-Reactive Protein NT-Pro-B Natriuret Pep Total Protein Albumin Arterial Blood Glucose Urine WBC (Auto) Urine Creatinine Digoxin 02/09/20 02/09/20 02/10/20 21:40 23:45 06:00 WBC RBC Hgb Hct MCHC RDW MCV MCH Lymph % (Auto) [place] % (Auto) [place] # Eos # Lymph # (Auto) [place] # (Auto) Eos # (Auto) Seg Neutrophils % Seg Neuts % (Manual) Baso # (Auto) Lymphocytes % (Manual) Monocytes % (Manual) Eosinophils % (Manual) Basophils % (Manual) Seg Neutrophils # Seg Neutrophils # Man Lymphocytes # (Manual) Monocytes # (Manual) Eosinophils # (Manual) Nucleated RBC % Basophils # (Manual) PT INR APTT Heparin Anti-Xa Level ABG pH POC ABG pO2 ABG pO2 59.8 L ABG HCO3 33.3 H ABG O2 Saturation 88.9 L ABG Base Excess 7.4 H POC ABG pCO2 ABG Hemoglobin 10.4 L ABG Oxyhemoglobin ABG Sodium ABG Chloride ABG Glucose Oxyhemoglobin 86.3 L Sodium Potassium Chloride Carbon Dioxide BUN Creatinine Glucose POC Glucose 127 H 114 H Lactic Acid Calcium Phosphorus Magnesium AST ALT Lactate Dehydrogenase Total Bilirubin Direct Bilirubin CK-MB (CK-2) C-Reactive Protein NT-Pro-B Natriuret Pep Total Protein Albumin Arterial Blood Glucose Urine WBC (Auto) Urine Creatinine Digoxin 02/10/20 02/10/20 02/10/20 07:40 07:40 13:38 WBC 11.5 H RBC Hgb 10.6 L Hct 34.7 L MCHC 31 L RDW 19.8 H MCV 79 L MCH 24 L Lymph % (Auto) [place] % (Auto) 9.2 H [place] # Eos # Lymph # (Auto) [place] # (Auto) 1.1 H Eos # (Auto) Seg Neutrophils % Seg Neuts % (Manual) Baso # (Auto) Lymphocytes % (Manual) Monocytes % (Manual) Eosinophils % (Manual) Basophils % (Manual) Seg Neutrophils # Seg Neutrophils # Man Lymphocytes # (Manual) Monocytes # (Manual) Eosinophils # (Manual) Nucleated RBC % Basophils # (Manual) PT INR APTT Heparin Anti-Xa Level ABG pH POC ABG pO2 ABG pO2 ABG HCO3 ABG O2 Saturation ABG Base Excess POC ABG pCO2 ABG Hemoglobin ABG Oxyhemoglobin ABG Sodium ABG Chloride ABG Glucose Oxyhemoglobin Sodium 151 H Potassium Chloride 107.2 H Carbon Dioxide 36 H BUN 25 H Creatinine 0.7 L Glucose 114 H POC Glucose 116 H Lactic Acid Calcium Phosphorus Magnesium 2.40 H AST ALT Lactate Dehydrogenase Total Bilirubin Direct Bilirubin CK-MB (CK-2) C-Reactive Protein NT-Pro-B Natriuret Pep Total Protein Albumin Arterial Blood Glucose Urine WBC (Auto) Urine Creatinine Digoxin 02/10/20 02/11/20 02/11/20 17:44 05:47 12:21 WBC RBC Hgb Hct MCHC RDW MCV MCH Lymph % (Auto) [place] % (Auto) [place] # Eos # Lymph # (Auto) [place] # (Auto) Eos # (Auto) Seg Neutrophils % Seg Neuts % (Manual) Baso # (Auto) Lymphocytes % (Manual) Monocytes % (Manual) Eosinophils % (Manual) Basophils % (Manual) Seg Neutrophils # Seg Neutrophils # Man Lymphocytes # (Manual) Monocytes # (Manual) Eosinophils # (Manual) Nucleated RBC % Basophils # (Manual) PT INR APTT Heparin Anti-Xa Level ABG pH POC ABG pO2 ABG pO2 ABG HCO3 ABG O2 Saturation ABG Base Excess POC ABG pCO2 ABG Hemoglobin ABG Oxyhemoglobin ABG Sodium ABG Chloride ABG Glucose Oxyhemoglobin Sodium Potassium Chloride Carbon Dioxide BUN Creatinine Glucose POC Glucose 139 H 173 H 143 H Lactic Acid Calcium Phosphorus Magnesium AST ALT Lactate Dehydrogenase Total Bilirubin Direct Bilirubin CK-MB (CK-2) C-Reactive Protein NT-Pro-B Natriuret Pep Total Protein Albumin Arterial Blood Glucose Urine WBC (Auto) Urine Creatinine Digoxin 02/11/20 02/11/20 02/12/20 13:43 14:11 00:15 WBC RBC Hgb Hct MCHC RDW MCV MCH Lymph % (Auto) [place] % (Auto) [place] # Eos # Lymph # (Auto) [place] # (Auto) Eos # (Auto) Seg Neutrophils % Seg Neuts % (Manual) Baso # (Auto) Lymphocytes % (Manual) Monocytes % (Manual) Eosinophils % (Manual) Basophils % (Manual) Seg Neutrophils # Seg Neutrophils # Man Lymphocytes # (Manual) Monocytes # (Manual) Eosinophils # (Manual) Nucleated RBC % Basophils # (Manual) PT INR APTT Heparin Anti-Xa Level ABG pH 7.502 H POC ABG pO2 77.7 L ABG pO2 ABG HCO3 ABG O2 Saturation ABG Base Excess POC ABG pCO2 ABG Hemoglobin 11.1 L ABG Oxyhemoglobin ABG Sodium ABG Chloride 108.0 H ABG Glucose 151 H Oxyhemoglobin Sodium Potassium Chloride Carbon Dioxide BUN Creatinine Glucose POC Glucose 130 H 125 H Lactic Acid Calcium Phosphorus Magnesium AST ALT Lactate Dehydrogenase Total Bilirubin Direct Bilirubin CK-MB (CK-2) C-Reactive Protein NT-Pro-B Natriuret Pep Total Protein Albumin Arterial Blood Glucose 151 H Urine WBC (Auto) Urine Creatinine Digoxin 02/12/20 02/12/20 02/12/20 04:56 04:56 17:42 WBC RBC Hgb 9.9 L Hct 31.8 L MCHC 31 L RDW 19.4 H MCV 79 L MCH 25 L Lymph % (Auto) [place] % (Auto) 10.3 H [place] # Eos # Lymph # (Auto) [place] # (Auto) 1.0 H Eos # (Auto) Seg Neutrophils % Seg Neuts % (Manual) Baso # (Auto) Lymphocytes % (Manual) Monocytes % (Manual) Eosinophils % (Manual) Basophils % (Manual) Seg Neutrophils # Seg Neutrophils # Man Lymphocytes # (Manual) Monocytes # (Manual) Eosinophils # (Manual) Nucleated RBC % Basophils # (Manual) PT INR APTT Heparin Anti-Xa Level ABG pH POC ABG pO2 ABG pO2 ABG HCO3 ABG O2 Saturation ABG Base Excess POC ABG pCO2 ABG Hemoglobin ABG Oxyhemoglobin ABG Sodium ABG Chloride ABG Glucose Oxyhemoglobin Sodium 149 H Potassium Chloride 108.6 H Carbon Dioxide BUN 28 H Creatinine 0.7 L Glucose 108 H POC Glucose 113 H Lactic Acid Calcium Phosphorus Magnesium AST ALT Lactate Dehydrogenase Total Bilirubin Direct Bilirubin CK-MB (CK-2) C-Reactive Protein NT-Pro-B Natriuret Pep Total Protein Albumin Arterial Blood Glucose Urine WBC (Auto) Urine Creatinine Digoxin 02/13/20 02/13/20 02/13/20 00:39 05:36 12:25 WBC RBC Hgb Hct MCHC RDW MCV MCH Lymph % (Auto) [place] % (Auto) [place] # Eos # Lymph # (Auto) [place] # (Auto) Eos # (Auto) Seg Neutrophils % Seg Neuts % (Manual) Baso # (Auto) Lymphocytes % (Manual) Monocytes % (Manual) Eosinophils % (Manual) Basophils % (Manual) Seg Neutrophils # Seg Neutrophils # Man Lymphocytes # (Manual) Monocytes # (Manual) Eosinophils # (Manual) Nucleated RBC % Basophils # (Manual) PT INR APTT Heparin Anti-Xa Level ABG pH POC ABG pO2 ABG pO2 ABG HCO3 ABG O2 Saturation ABG Base Excess POC ABG pCO2 ABG Hemoglobin ABG Oxyhemoglobin ABG Sodium ABG Chloride ABG Glucose Oxyhemoglobin Sodium Potassium Chloride Carbon Dioxide BUN Creatinine Glucose POC Glucose 129 H 126 H 129 H Lactic Acid Calcium Phosphorus Magnesium AST ALT Lactate Dehydrogenase Total Bilirubin Direct Bilirubin CK-MB (CK-2) C-Reactive Protein NT-Pro-B Natriuret Pep Total Protein Albumin Arterial Blood Glucose Urine WBC (Auto) Urine Creatinine Digoxin 02/13/20 02/14/20 02/14/20 17:59 00:15 05:41 WBC RBC Hgb Hct MCHC RDW MCV MCH Lymph % (Auto) [place] % (Auto) [place] # Eos # Lymph # (Auto) [place] # (Auto) Eos # (Auto) Seg Neutrophils % Seg Neuts % (Manual) Baso # (Auto) Lymphocytes % (Manual) Monocytes % (Manual) Eosinophils % (Manual) Basophils % (Manual) Seg Neutrophils # Seg Neutrophils # Man Lymphocytes # (Manual) Monocytes # (Manual) Eosinophils # (Manual) Nucleated RBC % Basophils # (Manual) PT INR APTT Heparin Anti-Xa Level ABG pH POC ABG pO2 ABG pO2 ABG HCO3 ABG O2 Saturation ABG Base Excess POC ABG pCO2 ABG Hemoglobin ABG Oxyhemoglobin ABG Sodium ABG Chloride ABG Glucose Oxyhemoglobin Sodium Potassium Chloride Carbon Dioxide BUN Creatinine Glucose POC Glucose 153 H 130 H 130 H Lactic Acid Calcium Phosphorus Magnesium AST ALT Lactate Dehydrogenase Total Bilirubin Direct Bilirubin CK-MB (CK-2) C-Reactive Protein NT-Pro-B Natriuret Pep Total Protein Albumin Arterial Blood Glucose Urine WBC (Auto) Urine Creatinine Digoxin 02/14/20 02/15/20 02/15/20 11:32 00:12 05:27 WBC RBC Hgb Hct MCHC RDW MCV MCH Lymph % (Auto) [place] % (Auto) [place] # Eos # Lymph # (Auto) [place] # (Auto) Eos # (Auto) Seg Neutrophils % Seg Neuts % (Manual) Baso # (Auto) Lymphocytes % (Manual) Monocytes % (Manual) Eosinophils % (Manual) Basophils % (Manual) Seg Neutrophils # Seg Neutrophils # Man Lymphocytes # (Manual) Monocytes # (Manual) Eosinophils # (Manual) Nucleated RBC % Basophils # (Manual) PT INR APTT Heparin Anti-Xa Level ABG pH POC ABG pO2 ABG pO2 ABG HCO3 ABG O2 Saturation ABG Base Excess POC ABG pCO2 ABG Hemoglobin ABG Oxyhemoglobin ABG Sodium ABG Chloride ABG Glucose Oxyhemoglobin Sodium Potassium Chloride Carbon Dioxide BUN Creatinine Glucose POC Glucose 157 H 124 H 111 H Lactic Acid Calcium Phosphorus Magnesium AST ALT Lactate Dehydrogenase Total Bilirubin Direct Bilirubin CK-MB (CK-2) C-Reactive Protein NT-Pro-B Natriuret Pep Total Protein Albumin Arterial Blood Glucose Urine WBC (Auto) Urine Creatinine Digoxin 02/15/20 02/15/20 02/15/20 06:59 06:59 11:14 WBC RBC Hgb 10.4 L Hct 33.7 L MCHC 31 L RDW 19.4 H MCV 80 L MCH 24 L Lymph % (Auto) [place] % (Auto) [place] # Eos # Lymph # (Auto) [place] # (Auto) Eos # (Auto) Seg Neutrophils % Seg Neuts % (Manual) Baso # (Auto) Lymphocytes % (Manual) Monocytes % (Manual) Eosinophils % (Manual) Basophils % (Manual) 2.0 H Seg Neutrophils # Seg Neutrophils # Man Lymphocytes # (Manual) Monocytes # (Manual) Eosinophils # (Manual) Nucleated RBC % 1.0 H Basophils # (Manual) 0.2 H PT INR APTT Heparin Anti-Xa Level ABG pH POC ABG pO2 ABG pO2 ABG HCO3 ABG O2 Saturation ABG Base Excess POC ABG pCO2 ABG Hemoglobin ABG Oxyhemoglobin ABG Sodium ABG Chloride ABG Glucose Oxyhemoglobin Sodium 149 H Potassium Chloride 108.4 H Carbon Dioxide 31 H BUN 40 H Creatinine 0.7 L Glucose 150 H POC Glucose 128 H Lactic Acid Calcium Phosphorus Magnesium AST ALT Lactate Dehydrogenase Total Bilirubin Direct Bilirubin CK-MB (CK-2) C-Reactive Protein NT-Pro-B Natriuret Pep Total Protein Albumin Arterial Blood Glucose Urine WBC (Auto) Urine Creatinine Digoxin 02/15/20 02/15/20 02/16/20 17:46 23:50 05:03 WBC RBC Hgb Hct MCHC RDW MCV MCH Lymph % (Auto) [place] % (Auto) [place] # Eos # Lymph # (Auto) [place] # (Auto) Eos # (Auto) Seg Neutrophils % Seg Neuts % (Manual) Baso # (Auto) Lymphocytes % (Manual) Monocytes % (Manual) Eosinophils % (Manual) Basophils % (Manual) Seg Neutrophils # Seg Neutrophils # Man Lymphocytes # (Manual) Monocytes # (Manual) Eosinophils # (Manual) Nucleated RBC % Basophils # (Manual) PT INR APTT Heparin Anti-Xa Level ABG pH POC ABG pO2 ABG pO2 ABG HCO3 ABG O2 Saturation ABG Base Excess POC ABG pCO2 ABG Hemoglobin ABG Oxyhemoglobin ABG Sodium ABG Chloride ABG Glucose Oxyhemoglobin Sodium Potassium Chloride Carbon Dioxide BUN Creatinine Glucose POC Glucose 154 H 135 H 148 H Lactic Acid Calcium Phosphorus Magnesium AST ALT Lactate Dehydrogenase Total Bilirubin Direct Bilirubin CK-MB (CK-2) C-Reactive Protein NT-Pro-B Natriuret Pep Total Protein Albumin Arterial Blood Glucose Urine WBC (Auto) Urine Creatinine Digoxin 02/16/20 02/16/20 02/16/20 07:53 11:28 17:52 WBC RBC Hgb Hct MCHC RDW MCV MCH Lymph % (Auto) [place] % (Auto) [place] # Eos # Lymph # (Auto) [place] # (Auto) Eos # (Auto) Seg Neutrophils % Seg Neuts % (Manual) Baso # (Auto) Lymphocytes % (Manual) Monocytes % (Manual) Eosinophils % (Manual) Basophils % (Manual) Seg Neutrophils # Seg Neutrophils # Man Lymphocytes # (Manual) Monocytes # (Manual) Eosinophils # (Manual) Nucleated RBC % Basophils # (Manual) PT INR APTT Heparin Anti-Xa Level ABG pH POC ABG pO2 ABG pO2 ABG HCO3 ABG O2 Saturation ABG Base Excess POC ABG pCO2 ABG Hemoglobin ABG Oxyhemoglobin ABG Sodium ABG Chloride ABG Glucose Oxyhemoglobin Sodium Potassium Chloride 107.9 H Carbon Dioxide BUN 38 H Creatinine 0.6 L Glucose 151 H POC Glucose 123 H 152 H Lactic Acid Calcium Phosphorus Magnesium AST ALT Lactate Dehydrogenase Total Bilirubin Direct Bilirubin CK-MB (CK-2) C-Reactive Protein NT-Pro-B Natriuret Pep Total Protein Albumin Arterial Blood Glucose Urine WBC (Auto) Urine Creatinine Digoxin 02/16/20 02/17/20 02/17/20 23:49 06:24 11:36 WBC RBC Hgb Hct MCHC RDW MCV MCH Lymph % (Auto) [place] % (Auto) [place] # Eos # Lymph # (Auto) [place] # (Auto) Eos # (Auto) Seg Neutrophils % Seg Neuts % (Manual) Baso # (Auto) Lymphocytes % (Manual) Monocytes % (Manual) Eosinophils % (Manual) Basophils % (Manual) Seg Neutrophils # Seg Neutrophils # Man Lymphocytes # (Manual) Monocytes # (Manual) Eosinophils # (Manual) Nucleated RBC % Basophils # (Manual) PT INR APTT Heparin Anti-Xa Level ABG pH POC ABG pO2 ABG pO2 ABG HCO3 ABG O2 Saturation ABG Base Excess POC ABG pCO2 ABG Hemoglobin ABG Oxyhemoglobin ABG Sodium ABG Chloride ABG Glucose Oxyhemoglobin Sodium Potassium Chloride Carbon Dioxide BUN Creatinine Glucose POC Glucose 156 H 193 H 162 H Lactic Acid Calcium Phosphorus Magnesium AST ALT Lactate Dehydrogenase Total Bilirubin Direct Bilirubin CK-MB (CK-2) C-Reactive Protein NT-Pro-B Natriuret Pep Total Protein Albumin Arterial Blood Glucose Urine WBC (Auto) Urine Creatinine Digoxin 02/17/20 02/17/20 02/18/20 17:55 23:28 05:11 WBC RBC Hgb Hct MCHC RDW MCV MCH Lymph % (Auto) [place] % (Auto) [place] # Eos # Lymph # (Auto) [place] # (Auto) Eos # (Auto) Seg Neutrophils % Seg Neuts % (Manual) Baso # (Auto) Lymphocytes % (Manual) Monocytes % (Manual) Eosinophils % (Manual) Basophils % (Manual) Seg Neutrophils # Seg Neutrophils # Man Lymphocytes # (Manual) Monocytes # (Manual) Eosinophils # (Manual) Nucleated RBC % Basophils # (Manual) PT INR APTT Heparin Anti-Xa Level ABG pH POC ABG pO2 ABG pO2 ABG HCO3 ABG O2 Saturation ABG Base Excess POC ABG pCO2 ABG Hemoglobin ABG Oxyhemoglobin ABG Sodium ABG Chloride ABG Glucose Oxyhemoglobin Sodium Potassium Chloride Carbon Dioxide BUN Creatinine Glucose POC Glucose 165 H 146 H 122 H Lactic Acid Calcium Phosphorus Magnesium AST ALT Lactate Dehydrogenase Total Bilirubin Direct Bilirubin CK-MB (CK-2) C-Reactive Protein NT-Pro-B Natriuret Pep Total Protein Albumin Arterial Blood Glucose Urine WBC (Auto) Urine Creatinine Digoxin 02/18/20 02/18/20 02/19/20 12:24 17:29 00:01 WBC RBC Hgb Hct MCHC RDW MCV MCH Lymph % (Auto) [place] % (Auto) [place] # Eos # Lymph # (Auto) [place] # (Auto) Eos # (Auto) Seg Neutrophils % Seg Neuts % (Manual) Baso # (Auto) Lymphocytes % (Manual) Monocytes % (Manual) Eosinophils % (Manual) Basophils % (Manual) Seg Neutrophils # Seg Neutrophils # Man Lymphocytes # (Manual) Monocytes # (Manual) Eosinophils # (Manual) Nucleated RBC % Basophils # (Manual) PT INR APTT Heparin Anti-Xa Level ABG pH POC ABG pO2 ABG pO2 ABG HCO3 ABG O2 Saturation ABG Base Excess POC ABG pCO2 ABG Hemoglobin ABG Oxyhemoglobin ABG Sodium ABG Chloride ABG Glucose Oxyhemoglobin Sodium Potassium Chloride Carbon Dioxide BUN Creatinine Glucose POC Glucose 162 H 136 H 145 H Lactic Acid Calcium Phosphorus Magnesium AST ALT Lactate Dehydrogenase Total Bilirubin Direct Bilirubin CK-MB (CK-2) C-Reactive Protein NT-Pro-B Natriuret Pep Total Protein Albumin Arterial Blood Glucose Urine WBC (Auto) Urine Creatinine Digoxin 02/19/20 02/19/20 02/19/20 05:53 11:44 17:32 WBC RBC Hgb Hct MCHC RDW MCV MCH Lymph % (Auto) [place] % (Auto) [place] # Eos # Lymph # (Auto) [place] # (Auto) Eos # (Auto) Seg Neutrophils % Seg Neuts % (Manual) Baso # (Auto) Lymphocytes % (Manual) Monocytes % (Manual) Eosinophils % (Manual) Basophils % (Manual) Seg Neutrophils # Seg Neutrophils # Man Lymphocytes # (Manual) Monocytes # (Manual) Eosinophils # (Manual) Nucleated RBC % Basophils # (Manual) PT INR APTT Heparin Anti-Xa Level ABG pH POC ABG pO2 ABG pO2 ABG HCO3 ABG O2 Saturation ABG Base Excess POC ABG pCO2 ABG Hemoglobin ABG Oxyhemoglobin ABG Sodium ABG Chloride ABG Glucose Oxyhemoglobin Sodium Potassium Chloride Carbon Dioxide BUN Creatinine Glucose POC Glucose 116 H 120 H 154 H Lactic Acid Calcium Phosphorus Magnesium AST ALT Lactate Dehydrogenase Total Bilirubin Direct Bilirubin CK-MB (CK-2) C-Reactive Protein NT-Pro-B Natriuret Pep Total Protein Albumin Arterial Blood Glucose Urine WBC (Auto) Urine Creatinine Digoxin 02/19/20 02/20/20 02/20/20 23:43 00:24 00:24 WBC RBC Hgb 9.4 L Hct 30.0 L MCHC 31 L RDW 20.4 H MCV 79 L MCH 25 L Lymph % (Auto) [place] % (Auto) 8.5 H [place] # Eos # Lymph # (Auto) [place] # (Auto) Eos # (Auto) Seg Neutrophils % Seg Neuts % (Manual) Baso # (Auto) Lymphocytes % (Manual) Monocytes % (Manual) Eosinophils % (Manual) Basophils % (Manual) Seg Neutrophils # Seg Neutrophils # Man Lymphocytes # (Manual) Monocytes # (Manual) Eosinophils # (Manual) Nucleated RBC % Basophils # (Manual) PT INR APTT Heparin Anti-Xa Level ABG pH POC ABG pO2 ABG pO2 ABG HCO3 ABG O2 Saturation ABG Base Excess POC ABG pCO2 ABG Hemoglobin ABG Oxyhemoglobin ABG Sodium ABG Chloride ABG Glucose Oxyhemoglobin Sodium 147 H Potassium 3.4 L Chloride Carbon Dioxide 31 H BUN 34 H Creatinine 0.5 L Glucose 135 H POC Glucose 122 H Lactic Acid Calcium Phosphorus Magnesium AST ALT Lactate Dehydrogenase Total Bilirubin Direct Bilirubin CK-MB (CK-2) C-Reactive Protein NT-Pro-B Natriuret Pep Total Protein Albumin Arterial Blood Glucose Urine WBC (Auto) Urine Creatinine Digoxin 02/20/20 02/20/20 02/20/20 06:07 06:45 12:03 WBC RBC Hgb Hct MCHC RDW MCV MCH Lymph % (Auto) [place] % (Auto) [place] # Eos # Lymph # (Auto) [place] # (Auto) Eos # (Auto) Seg Neutrophils % Seg Neuts % (Manual) Baso # (Auto) Lymphocytes % (Manual) Monocytes % (Manual) Eosinophils % (Manual) Basophils % (Manual) Seg Neutrophils # Seg Neutrophils # Man Lymphocytes # (Manual) Monocytes # (Manual) Eosinophils # (Manual) Nucleated RBC % Basophils # (Manual) PT INR APTT Heparin Anti-Xa Level ABG pH 7.461 H POC ABG pO2 ABG pO2 ABG HCO3 33.3 H ABG O2 Saturation ABG Base Excess 8.4 H POC ABG pCO2 ABG Hemoglobin 10.0 L ABG Oxyhemoglobin ABG Sodium ABG Chloride ABG Glucose Oxyhemoglobin 94.1 L Sodium Potassium Chloride Carbon Dioxide BUN Creatinine Glucose POC Glucose 109 H 128 H Lactic Acid Calcium Phosphorus Magnesium AST ALT Lactate Dehydrogenase Total Bilirubin Direct Bilirubin CK-MB (CK-2) C-Reactive Protein NT-Pro-B Natriuret Pep Total Protein Albumin Arterial Blood Glucose Urine WBC (Auto) Urine Creatinine Digoxin 02/20/20 02/20/20 02/21/20 18:02 23:55 05:42 WBC RBC Hgb Hct MCHC RDW MCV MCH Lymph % (Auto) [place] % (Auto) [place] # Eos # Lymph # (Auto) [place] # (Auto) Eos # (Auto) Seg Neutrophils % Seg Neuts % (Manual) Baso # (Auto) Lymphocytes % (Manual) Monocytes % (Manual) Eosinophils % (Manual) Basophils % (Manual) Seg Neutrophils # Seg Neutrophils # Man Lymphocytes # (Manual) Monocytes # (Manual) Eosinophils # (Manual) Nucleated RBC % Basophils # (Manual) PT INR APTT Heparin Anti-Xa Level ABG pH POC ABG pO2 ABG pO2 ABG HCO3 ABG O2 Saturation ABG Base Excess POC ABG pCO2 ABG Hemoglobin ABG Oxyhemoglobin ABG Sodium ABG Chloride ABG Glucose Oxyhemoglobin Sodium Potassium Chloride Carbon Dioxide BUN Creatinine Glucose POC Glucose 118 H 125 H 127 H Lactic Acid Calcium Phosphorus Magnesium AST ALT Lactate Dehydrogenase Total Bilirubin Direct Bilirubin CK-MB (CK-2) C-Reactive Protein NT-Pro-B Natriuret Pep Total Protein Albumin Arterial Blood Glucose Urine WBC (Auto) Urine Creatinine Digoxin 02/21/20 02/21/20 02/21/20 12:10 17:35 23:40 WBC RBC Hgb Hct MCHC RDW MCV MCH Lymph % (Auto) [place] % (Auto) [place] # Eos # Lymph # (Auto) [place] # (Auto) Eos # (Auto) Seg Neutrophils % Seg Neuts % (Manual) Baso # (Auto) Lymphocytes % (Manual) Monocytes % (Manual) Eosinophils % (Manual) Basophils % (Manual) Seg Neutrophils # Seg Neutrophils # Man Lymphocytes # (Manual) Monocytes # (Manual) Eosinophils # (Manual) Nucleated RBC % Basophils # (Manual) PT INR APTT Heparin Anti-Xa Level ABG pH POC ABG pO2 ABG pO2 ABG HCO3 ABG O2 Saturation ABG Base Excess POC ABG pCO2 ABG Hemoglobin ABG Oxyhemoglobin ABG Sodium ABG Chloride ABG Glucose Oxyhemoglobin Sodium Potassium Chloride Carbon Dioxide BUN Creatinine Glucose POC Glucose 128 H 113 H 125 H Lactic Acid Calcium Phosphorus Magnesium AST ALT Lactate Dehydrogenase Total Bilirubin Direct Bilirubin CK-MB (CK-2) C-Reactive Protein NT-Pro-B Natriuret Pep Total Protein Albumin Arterial Blood Glucose Urine WBC (Auto) Urine Creatinine Digoxin 02/22/20 02/22/20 02/22/20 05:57 08:06 08:06 WBC RBC Hgb 10.8 L Hct 35.2 L MCHC 31 L RDW 21.8 H MCV 80 L MCH 25 L Lymph % (Auto) [place] % (Auto) [place] # Eos # Lymph # (Auto) [place] # (Auto) Eos # (Auto) Seg Neutrophils % 71.5 H Seg Neuts % (Manual) Baso # (Auto) Lymphocytes % (Manual) Monocytes % (Manual) Eosinophils % (Manual) Basophils % (Manual) Seg Neutrophils # Seg Neutrophils # Man Lymphocytes # (Manual) Monocytes # (Manual) Eosinophils # (Manual) Nucleated RBC % Basophils # (Manual) PT INR APTT Heparin Anti-Xa Level ABG pH POC ABG pO2 ABG pO2 ABG HCO3 ABG O2 Saturation ABG Base Excess POC ABG pCO2 ABG Hemoglobin ABG Oxyhemoglobin ABG Sodium ABG Chloride ABG Glucose Oxyhemoglobin Sodium 146 H Potassium Chloride Carbon Dioxide 34 H BUN 21 H Creatinine 0.4 L Glucose 149 H POC Glucose 138 H Lactic Acid Calcium Phosphorus Magnesium AST ALT Lactate Dehydrogenase Total Bilirubin Direct Bilirubin CK-MB (CK-2) C-Reactive Protein NT-Pro-B Natriuret Pep Total Protein Albumin Arterial Blood Glucose Urine WBC (Auto) Urine Creatinine Digoxin 02/22/20 02/22/20 02/22/20 11:47 17:11 23:25 WBC RBC Hgb Hct MCHC RDW MCV MCH Lymph % (Auto) [place] % (Auto) [place] # Eos # Lymph # (Auto) [place] # (Auto) Eos # (Auto) Seg Neutrophils % Seg Neuts % (Manual) Baso # (Auto) Lymphocytes % (Manual) Monocytes % (Manual) Eosinophils % (Manual) Basophils % (Manual) Seg Neutrophils # Seg Neutrophils # Man Lymphocytes # (Manual) Monocytes # (Manual) Eosinophils # (Manual) Nucleated RBC % Basophils # (Manual) PT INR APTT Heparin Anti-Xa Level ABG pH POC ABG pO2 ABG pO2 ABG HCO3 ABG O2 Saturation ABG Base Excess POC ABG pCO2 ABG Hemoglobin ABG Oxyhemoglobin ABG Sodium ABG Chloride ABG Glucose Oxyhemoglobin Sodium Potassium Chloride Carbon Dioxide BUN Creatinine Glucose POC Glucose 149 H 144 H 142 H Lactic Acid Calcium Phosphorus Magnesium AST ALT Lactate Dehydrogenase Total Bilirubin Direct Bilirubin CK-MB (CK-2) C-Reactive Protein NT-Pro-B Natriuret Pep Total Protein Albumin Arterial Blood Glucose Urine WBC (Auto) Urine Creatinine Digoxin 02/23/20 02/23/20 02/23/20 05:22 11:37 18:14 WBC RBC Hgb Hct MCHC RDW MCV MCH Lymph % (Auto) [place] % (Auto) [place] # Eos # Lymph # (Auto) [place] # (Auto) Eos # (Auto) Seg Neutrophils % Seg Neuts % (Manual) Baso # (Auto) Lymphocytes % (Manual) Monocytes % (Manual) Eosinophils % (Manual) Basophils % (Manual) Seg Neutrophils # Seg Neutrophils # Man Lymphocytes # (Manual) Monocytes # (Manual) Eosinophils # (Manual) Nucleated RBC % Basophils # (Manual) PT INR APTT Heparin Anti-Xa Level ABG pH POC ABG pO2 ABG pO2 ABG HCO3 ABG O2 Saturation ABG Base Excess POC ABG pCO2 ABG Hemoglobin ABG Oxyhemoglobin ABG Sodium ABG Chloride ABG Glucose Oxyhemoglobin Sodium Potassium Chloride Carbon Dioxide BUN Creatinine Glucose POC Glucose 144 H 113 H 127 H Lactic Acid Calcium Phosphorus Magnesium AST ALT Lactate Dehydrogenase Total Bilirubin Direct Bilirubin CK-MB (CK-2) C-Reactive Protein NT-Pro-B Natriuret Pep Total Protein Albumin Arterial Blood Glucose Urine WBC (Auto) Urine Creatinine Digoxin 02/23/20 02/24/20 02/24/20 23:45 05:50 11:24 WBC RBC Hgb Hct MCHC RDW MCV MCH Lymph % (Auto) [place] % (Auto) [place] # Eos # Lymph # (Auto) [place] # (Auto) Eos # (Auto) Seg Neutrophils % Seg Neuts % (Manual) Baso # (Auto) Lymphocytes % (Manual) Monocytes % (Manual) Eosinophils % (Manual) Basophils % (Manual) Seg Neutrophils # Seg Neutrophils # Man Lymphocytes # (Manual) Monocytes # (Manual) Eosinophils # (Manual) Nucleated RBC % Basophils # (Manual) PT INR APTT Heparin Anti-Xa Level ABG pH POC ABG pO2 ABG pO2 ABG HCO3 ABG O2 Saturation ABG Base Excess POC ABG pCO2 ABG Hemoglobin ABG Oxyhemoglobin ABG Sodium ABG Chloride ABG Glucose Oxyhemoglobin Sodium Potassium Chloride Carbon Dioxide BUN Creatinine Glucose POC Glucose 123 H 117 H 126 H Lactic Acid Calcium Phosphorus Magnesium AST ALT Lactate Dehydrogenase Total Bilirubin Direct Bilirubin CK-MB (CK-2) C-Reactive Protein NT-Pro-B Natriuret Pep Total Protein Albumin Arterial Blood Glucose Urine WBC (Auto) Urine Creatinine Digoxin 02/24/20 02/24/20 02/25/20 18:35 23:27 05:20 WBC RBC Hgb Hct MCHC RDW MCV MCH Lymph % (Auto) [place] % (Auto) [place] # Eos # Lymph # (Auto) [place] # (Auto) Eos # (Auto) Seg Neutrophils % Seg Neuts % (Manual) Baso # (Auto) Lymphocytes % (Manual) Monocytes % (Manual) Eosinophils % (Manual) Basophils % (Manual) Seg Neutrophils # Seg Neutrophils # Man Lymphocytes # (Manual) Monocytes # (Manual) Eosinophils # (Manual) Nucleated RBC % Basophils # (Manual) PT INR APTT Heparin Anti-Xa Level ABG pH POC ABG pO2 ABG pO2 ABG HCO3 ABG O2 Saturation ABG Base Excess POC ABG pCO2 ABG Hemoglobin ABG Oxyhemoglobin ABG Sodium ABG Chloride ABG Glucose Oxyhemoglobin Sodium Potassium Chloride Carbon Dioxide BUN Creatinine Glucose POC Glucose 121 H 127 H 133 H Lactic Acid Calcium Phosphorus Magnesium AST ALT Lactate Dehydrogenase Total Bilirubin Direct Bilirubin CK-MB (CK-2) C-Reactive Protein NT-Pro-B Natriuret Pep Total Protein Albumin Arterial Blood Glucose Urine WBC (Auto) Urine Creatinine Digoxin 02/25/20 02/25/20 02/25/20 12:08 17:26 23:33 WBC RBC Hgb Hct MCHC RDW MCV MCH Lymph % (Auto) [place] % (Auto) [place] # Eos # Lymph # (Auto) [place] # (Auto) Eos # (Auto) Seg Neutrophils % Seg Neuts % (Manual) Baso # (Auto) Lymphocytes % (Manual) Monocytes % (Manual) Eosinophils % (Manual) Basophils % (Manual) Seg Neutrophils # Seg Neutrophils # Man Lymphocytes # (Manual) Monocytes # (Manual) Eosinophils # (Manual) Nucleated RBC % Basophils # (Manual) PT INR APTT Heparin Anti-Xa Level ABG pH POC ABG pO2 ABG pO2 ABG HCO3 ABG O2 Saturation ABG Base Excess POC ABG pCO2 ABG Hemoglobin ABG Oxyhemoglobin ABG Sodium ABG Chloride ABG Glucose Oxyhemoglobin Sodium Potassium Chloride Carbon Dioxide BUN Creatinine Glucose POC Glucose 109 H 120 H 120 H Lactic Acid Calcium Phosphorus Magnesium AST ALT Lactate Dehydrogenase Total Bilirubin Direct Bilirubin CK-MB (CK-2) C-Reactive Protein NT-Pro-B Natriuret Pep Total Protein Albumin Arterial Blood Glucose Urine WBC (Auto) Urine Creatinine Digoxin 02/26/20 02/26/20 02/27/20 05:33 07:50 12:13 WBC RBC Hgb Hct MCHC RDW MCV MCH Lymph % (Auto) [place] % (Auto) [place] # Eos # Lymph # (Auto) [place] # (Auto) Eos # (Auto) Seg Neutrophils % Seg Neuts % (Manual) Baso # (Auto) Lymphocytes % (Manual) Monocytes % (Manual) Eosinophils % (Manual) Basophils % (Manual) Seg Neutrophils # Seg Neutrophils # Man Lymphocytes # (Manual) Monocytes # (Manual) Eosinophils # (Manual) Nucleated RBC % Basophils # (Manual) PT INR APTT Heparin Anti-Xa Level ABG pH POC ABG pO2 ABG pO2 ABG HCO3 ABG O2 Saturation ABG Base Excess POC ABG pCO2 ABG Hemoglobin ABG Oxyhemoglobin ABG Sodium ABG Chloride ABG Glucose Oxyhemoglobin Sodium Potassium Chloride Carbon Dioxide BUN Creatinine Glucose POC Glucose 106 H 130 H Lactic Acid Calcium Phosphorus Magnesium AST ALT Lactate Dehydrogenase Total Bilirubin Direct Bilirubin CK-MB (CK-2) C-Reactive Protein NT-Pro-B Natriuret Pep Total Protein Albumin Arterial Blood Glucose Urine WBC (Auto) > 182.0 H Urine Creatinine Digoxin 02/27/20 02/27/20 02/28/20 18:20 23:33 05:01 WBC RBC Hgb Hct MCHC RDW MCV MCH Lymph % (Auto) [place] % (Auto) [place] # Eos # Lymph # (Auto) [place] # (Auto) Eos # (Auto) Seg Neutrophils % Seg Neuts % (Manual) Baso # (Auto) Lymphocytes % (Manual) Monocytes % (Manual) Eosinophils % (Manual) Basophils % (Manual) Seg Neutrophils # Seg Neutrophils # Man Lymphocytes # (Manual) Monocytes # (Manual) Eosinophils # (Manual) Nucleated RBC % Basophils # (Manual) PT INR APTT Heparin Anti-Xa Level ABG pH POC ABG pO2 ABG pO2 ABG HCO3 ABG O2 Saturation ABG Base Excess POC ABG pCO2 ABG Hemoglobin ABG Oxyhemoglobin ABG Sodium ABG Chloride ABG Glucose Oxyhemoglobin Sodium Potassium Chloride Carbon Dioxide BUN Creatinine Glucose POC Glucose 109 H 124 H 134 H Lactic Acid Calcium Phosphorus Magnesium AST ALT Lactate Dehydrogenase Total Bilirubin Direct Bilirubin CK-MB (CK-2) C-Reactive Protein NT-Pro-B Natriuret Pep Total Protein Albumin Arterial Blood Glucose Urine WBC (Auto) Urine Creatinine Digoxin 02/28/20 02/28/20 02/28/20 11:54 18:16 23:03 WBC RBC Hgb Hct MCHC RDW MCV MCH Lymph % (Auto) [place] % (Auto) [place] # Eos # Lymph # (Auto) [place] # (Auto) Eos # (Auto) Seg Neutrophils % Seg Neuts % (Manual) Baso # (Auto) Lymphocytes % (Manual) Monocytes % (Manual) Eosinophils % (Manual) Basophils % (Manual) Seg Neutrophils # Seg Neutrophils # Man Lymphocytes # (Manual) Monocytes # (Manual) Eosinophils # (Manual) Nucleated RBC % Basophils # (Manual) PT INR APTT Heparin Anti-Xa Level ABG pH POC ABG pO2 ABG pO2 ABG HCO3 ABG O2 Saturation ABG Base Excess POC ABG pCO2 ABG Hemoglobin ABG Oxyhemoglobin ABG Sodium ABG Chloride ABG Glucose Oxyhemoglobin Sodium Potassium Chloride Carbon Dioxide BUN Creatinine Glucose POC Glucose 133 H 134 H 146 H Lactic Acid Calcium Phosphorus Magnesium AST ALT Lactate Dehydrogenase Total Bilirubin Direct Bilirubin CK-MB (CK-2) C-Reactive Protein NT-Pro-B Natriuret Pep Total Protein Albumin Arterial Blood Glucose Urine WBC (Auto) Urine Creatinine Digoxin 02/29/20 02/29/20 02/29/20 05:24 11:34 17:12 WBC RBC Hgb Hct MCHC RDW MCV MCH Lymph % (Auto) [place] % (Auto) [place] # Eos # Lymph # (Auto) [place] # (Auto) Eos # (Auto) Seg Neutrophils % Seg Neuts % (Manual) Baso # (Auto) Lymphocytes % (Manual) Monocytes % (Manual) Eosinophils % (Manual) Basophils % (Manual) Seg Neutrophils # Seg Neutrophils # Man Lymphocytes # (Manual) Monocytes # (Manual) Eosinophils # (Manual) Nucleated RBC % Basophils # (Manual) PT INR APTT Heparin Anti-Xa Level ABG pH POC ABG pO2 ABG pO2 ABG HCO3 ABG O2 Saturation ABG Base Excess POC ABG pCO2 ABG Hemoglobin ABG Oxyhemoglobin ABG Sodium ABG Chloride ABG Glucose Oxyhemoglobin Sodium Potassium Chloride Carbon Dioxide BUN Creatinine Glucose POC Glucose 139 H 141 H 157 H Lactic Acid Calcium Phosphorus Magnesium AST ALT Lactate Dehydrogenase Total Bilirubin Direct Bilirubin CK-MB (CK-2) C-Reactive Protein NT-Pro-B Natriuret Pep Total Protein Albumin Arterial Blood Glucose Urine WBC (Auto) Urine Creatinine Digoxin 02/29/20 03/01/20 03/01/20 23:35 06:00 11:53 WBC RBC Hgb Hct MCHC RDW MCV MCH Lymph % (Auto) [place] % (Auto) [place] # Eos # Lymph # (Auto) [place] # (Auto) Eos # (Auto) Seg Neutrophils % Seg Neuts % (Manual) Baso # (Auto) Lymphocytes % (Manual) Monocytes % (Manual) Eosinophils % (Manual) Basophils % (Manual) Seg Neutrophils # Seg Neutrophils # Man Lymphocytes # (Manual) Monocytes # (Manual) Eosinophils # (Manual) Nucleated RBC % Basophils # (Manual) PT INR APTT Heparin Anti-Xa Level ABG pH POC ABG pO2 ABG pO2 ABG HCO3 ABG O2 Saturation ABG Base Excess POC ABG pCO2 ABG Hemoglobin ABG Oxyhemoglobin ABG Sodium ABG Chloride ABG Glucose Oxyhemoglobin Sodium Potassium Chloride Carbon Dioxide BUN Creatinine Glucose POC Glucose 120 H 132 H 136 H Lactic Acid Calcium Phosphorus Magnesium AST ALT Lactate Dehydrogenase Total Bilirubin Direct Bilirubin CK-MB (CK-2) C-Reactive Protein NT-Pro-B Natriuret Pep Total Protein Albumin Arterial Blood Glucose Urine WBC (Auto) Urine Creatinine Digoxin 03/01/20 03/01/20 03/02/20 17:36 23:16 05:12 WBC RBC Hgb Hct MCHC RDW MCV MCH Lymph % (Auto) [place] % (Auto) [place] # Eos # Lymph # (Auto) [place] # (Auto) Eos # (Auto) Seg Neutrophils % Seg Neuts % (Manual) Baso # (Auto) Lymphocytes % (Manual) Monocytes % (Manual) Eosinophils % (Manual) Basophils % (Manual) Seg Neutrophils # Seg Neutrophils # Man Lymphocytes # (Manual) Monocytes # (Manual) Eosinophils # (Manual) Nucleated RBC % Basophils # (Manual) PT INR APTT Heparin Anti-Xa Level ABG pH POC ABG pO2 ABG pO2 ABG HCO3 ABG O2 Saturation ABG Base Excess POC ABG pCO2 ABG Hemoglobin ABG Oxyhemoglobin ABG Sodium ABG Chloride ABG Glucose Oxyhemoglobin Sodium Potassium Chloride Carbon Dioxide BUN Creatinine Glucose POC Glucose 171 H 164 H 176 H Lactic Acid Calcium Phosphorus Magnesium AST ALT Lactate Dehydrogenase Total Bilirubin Direct Bilirubin CK-MB (CK-2) C-Reactive Protein NT-Pro-B Natriuret Pep Total Protein Albumin Arterial Blood Glucose Urine WBC (Auto) Urine Creatinine Digoxin 03/02/20 03/02/20 03/03/20 11:42 18:01 00:06 WBC RBC Hgb Hct MCHC RDW MCV MCH Lymph % (Auto) [place] % (Auto) [place] # Eos # Lymph # (Auto) [place] # (Auto) Eos # (Auto) Seg Neutrophils % Seg Neuts % (Manual) Baso # (Auto) Lymphocytes % (Manual) Monocytes % (Manual) Eosinophils % (Manual) Basophils % (Manual) Seg Neutrophils # Seg Neutrophils # Man Lymphocytes # (Manual) Monocytes # (Manual) Eosinophils # (Manual) Nucleated RBC % Basophils # (Manual) PT INR APTT Heparin Anti-Xa Level ABG pH POC ABG pO2 ABG pO2 ABG HCO3 ABG O2 Saturation ABG Base Excess POC ABG pCO2 ABG Hemoglobin ABG Oxyhemoglobin ABG Sodium ABG Chloride ABG Glucose Oxyhemoglobin Sodium Potassium Chloride Carbon Dioxide BUN Creatinine Glucose POC Glucose 150 H 156 H 156 H Lactic Acid Calcium Phosphorus Magnesium AST ALT Lactate Dehydrogenase Total Bilirubin Direct Bilirubin CK-MB (CK-2) C-Reactive Protein NT-Pro-B Natriuret Pep Total Protein Albumin Arterial Blood Glucose Urine WBC (Auto) Urine Creatinine Digoxin 03/03/20 03/03/20 03/03/20 03:31 11:20 16:55 WBC RBC Hgb Hct MCHC RDW MCV MCH Lymph % (Auto) [place] % (Auto) [place] # Eos # Lymph # (Auto) [place] # (Auto) Eos # (Auto) Seg Neutrophils % Seg Neuts % (Manual) Baso # (Auto) Lymphocytes % (Manual) Monocytes % (Manual) Eosinophils % (Manual) Basophils % (Manual) Seg Neutrophils # Seg Neutrophils # Man Lymphocytes # (Manual) Monocytes # (Manual) Eosinophils # (Manual) Nucleated RBC % Basophils # (Manual) PT INR APTT Heparin Anti-Xa Level ABG pH POC ABG pO2 ABG pO2 ABG HCO3 ABG O2 Saturation ABG Base Excess POC ABG pCO2 ABG Hemoglobin ABG Oxyhemoglobin ABG Sodium ABG Chloride ABG Glucose Oxyhemoglobin Sodium Potassium Chloride Carbon Dioxide BUN Creatinine Glucose POC Glucose 164 H 125 H 211 H Lactic Acid Calcium Phosphorus Magnesium AST ALT Lactate Dehydrogenase Total Bilirubin Direct Bilirubin CK-MB (CK-2) C-Reactive Protein NT-Pro-B Natriuret Pep Total Protein Albumin Arterial Blood Glucose Urine WBC (Auto) Urine Creatinine Digoxin 03/04/20 03/04/20 03/04/20 00:29 05:20 12:09 WBC RBC Hgb Hct MCHC RDW MCV MCH Lymph % (Auto) [place] % (Auto) [place] # Eos # Lymph # (Auto) [place] # (Auto) Eos # (Auto) Seg Neutrophils % Seg Neuts % (Manual) Baso # (Auto) Lymphocytes % (Manual) Monocytes % (Manual) Eosinophils % (Manual) Basophils % (Manual) Seg Neutrophils # Seg Neutrophils # Man Lymphocytes # (Manual) Monocytes # (Manual) Eosinophils # (Manual) Nucleated RBC % Basophils # (Manual) PT INR APTT Heparin Anti-Xa Level ABG pH POC ABG pO2 ABG pO2 ABG HCO3 ABG O2 Saturation ABG Base Excess POC ABG pCO2 ABG Hemoglobin ABG Oxyhemoglobin ABG Sodium ABG Chloride ABG Glucose Oxyhemoglobin Sodium Potassium Chloride Carbon Dioxide BUN Creatinine Glucose POC Glucose 169 H 154 H 197 H Lactic Acid Calcium Phosphorus Magnesium AST ALT Lactate Dehydrogenase Total Bilirubin Direct Bilirubin CK-MB (CK-2) C-Reactive Protein NT-Pro-B Natriuret Pep Total Protein Albumin Arterial Blood Glucose Urine WBC (Auto) Urine Creatinine Digoxin 03/04/20 03/04/20 03/04/20 18:00 20:38 20:38 WBC RBC Hgb 10.1 L Hct 32.7 L MCHC 31 L RDW 24.7 H MCV 79 L MCH 24 L Lymph % (Auto) [place] % (Auto) 8.9 H [place] # Eos # Lymph # (Auto) [place] # (Auto) Eos # (Auto) Seg Neutrophils % Seg Neuts % (Manual) Baso # (Auto) Lymphocytes % (Manual) Monocytes % (Manual) Eosinophils % (Manual) Basophils % (Manual) Seg Neutrophils # Seg Neutrophils # Man Lymphocytes # (Manual) Monocytes # (Manual) Eosinophils # (Manual) Nucleated RBC % Basophils # (Manual) PT INR APTT Heparin Anti-Xa Level ABG pH POC ABG pO2 ABG pO2 ABG HCO3 ABG O2 Saturation ABG Base Excess POC ABG pCO2 ABG Hemoglobin ABG Oxyhemoglobin ABG Sodium ABG Chloride ABG Glucose Oxyhemoglobin Sodium 136 L Potassium Chloride Carbon Dioxide BUN 25 H Creatinine 0.5 L Glucose 148 H POC Glucose 146 H Lactic Acid Calcium Phosphorus Magnesium AST ALT Lactate Dehydrogenase Total Bilirubin Direct Bilirubin CK-MB (CK-2) C-Reactive Protein NT-Pro-B Natriuret Pep Total Protein Albumin Arterial Blood Glucose Urine WBC (Auto) Urine Creatinine Digoxin 03/04/20 03/05/20 03/05/20 23:17 05:44 11:32 WBC RBC Hgb Hct MCHC RDW MCV MCH Lymph % (Auto) [place] % (Auto) [place] # Eos # Lymph # (Auto) [place] # (Auto) Eos # (Auto) Seg Neutrophils % Seg Neuts % (Manual) Baso # (Auto) Lymphocytes % (Manual) Monocytes % (Manual) Eosinophils % (Manual) Basophils % (Manual) Seg Neutrophils # Seg Neutrophils # Man Lymphocytes # (Manual) Monocytes # (Manual) Eosinophils # (Manual) Nucleated RBC % Basophils # (Manual) PT INR APTT Heparin Anti-Xa Level ABG pH POC ABG pO2 ABG pO2 ABG HCO3 ABG O2 Saturation ABG Base Excess POC ABG pCO2 ABG Hemoglobin ABG Oxyhemoglobin ABG Sodium ABG Chloride ABG Glucose Oxyhemoglobin Sodium Potassium Chloride Carbon Dioxide BUN Creatinine Glucose POC Glucose 139 H 155 H 124 H Lactic Acid Calcium Phosphorus Magnesium AST ALT Lactate Dehydrogenase Total Bilirubin Direct Bilirubin CK-MB (CK-2) C-Reactive Protein NT-Pro-B Natriuret Pep Total Protein Albumin Arterial Blood Glucose Urine WBC (Auto) Urine Creatinine Digoxin 03/05/20 03/05/20 03/06/20 17:45 23:18 12:16 WBC RBC Hgb Hct MCHC RDW MCV MCH Lymph % (Auto) [place] % (Auto) [place] # Eos # Lymph # (Auto) [place] # (Auto) Eos # (Auto) Seg Neutrophils % Seg Neuts % (Manual) Baso # (Auto) Lymphocytes % (Manual) Monocytes % (Manual) Eosinophils % (Manual) Basophils % (Manual) Seg Neutrophils # Seg Neutrophils # Man Lymphocytes # (Manual) Monocytes # (Manual) Eosinophils # (Manual) Nucleated RBC % Basophils # (Manual) PT INR APTT Heparin Anti-Xa Level ABG pH POC ABG pO2 ABG pO2 ABG HCO3 ABG O2 Saturation ABG Base Excess POC ABG pCO2 ABG Hemoglobin ABG Oxyhemoglobin ABG Sodium ABG Chloride ABG Glucose Oxyhemoglobin Sodium Potassium Chloride Carbon Dioxide BUN Creatinine Glucose POC Glucose 171 H 114 H 155 H Lactic Acid Calcium Phosphorus Magnesium AST ALT Lactate Dehydrogenase Total Bilirubin Direct Bilirubin CK-MB (CK-2) C-Reactive Protein NT-Pro-B Natriuret Pep Total Protein Albumin Arterial Blood Glucose Urine WBC (Auto) Urine Creatinine Digoxin 03/06/20 03/06/20 03/07/20 17:27 23:48 06:02 WBC RBC Hgb Hct MCHC RDW MCV MCH Lymph % (Auto) [place] % (Auto) [place] # Eos # Lymph # (Auto) [place] # (Auto) Eos # (Auto) Seg Neutrophils % Seg Neuts % (Manual) Baso # (Auto) Lymphocytes % (Manual) Monocytes % (Manual) Eosinophils % (Manual) Basophils % (Manual) Seg Neutrophils # Seg Neutrophils # Man Lymphocytes # (Manual) Monocytes # (Manual) Eosinophils # (Manual) Nucleated RBC % Basophils # (Manual) PT INR APTT Heparin Anti-Xa Level ABG pH POC ABG pO2 ABG pO2 ABG HCO3 ABG O2 Saturation ABG Base Excess POC ABG pCO2 ABG Hemoglobin ABG Oxyhemoglobin ABG Sodium ABG Chloride ABG Glucose Oxyhemoglobin Sodium Potassium Chloride Carbon Dioxide BUN Creatinine Glucose POC Glucose 116 H 142 H 161 H Lactic Acid Calcium Phosphorus Magnesium AST ALT Lactate Dehydrogenase Total Bilirubin Direct Bilirubin CK-MB (CK-2) C-Reactive Protein NT-Pro-B Natriuret Pep Total Protein Albumin Arterial Blood Glucose Urine WBC (Auto) Urine Creatinine Digoxin 03/07/20 03/08/20 03/08/20 11:36 05:18 11:51 WBC RBC Hgb Hct MCHC RDW MCV MCH Lymph % (Auto) [place] % (Auto) [place] # Eos # Lymph # (Auto) [place] # (Auto) Eos # (Auto) Seg Neutrophils % Seg Neuts % (Manual) Baso # (Auto) Lymphocytes % (Manual) Monocytes % (Manual) Eosinophils % (Manual) Basophils % (Manual) Seg Neutrophils # Seg Neutrophils # Man Lymphocytes # (Manual) Monocytes # (Manual) Eosinophils # (Manual) Nucleated RBC % Basophils # (Manual) PT INR APTT Heparin Anti-Xa Level ABG pH POC ABG pO2 ABG pO2 ABG HCO3 ABG O2 Saturation ABG Base Excess POC ABG pCO2 ABG Hemoglobin ABG Oxyhemoglobin ABG Sodium ABG Chloride ABG Glucose Oxyhemoglobin Sodium Potassium Chloride Carbon Dioxide BUN Creatinine Glucose POC Glucose 127 H 142 H 135 H Lactic Acid Calcium Phosphorus Magnesium AST ALT Lactate Dehydrogenase Total Bilirubin Direct Bilirubin CK-MB (CK-2) C-Reactive Protein NT-Pro-B Natriuret Pep Total Protein Albumin Arterial Blood Glucose Urine WBC (Auto) Urine Creatinine Digoxin 03/08/20 03/08/20 03/09/20 18:14 23:45 05:36 WBC RBC Hgb Hct MCHC RDW MCV MCH Lymph % (Auto) [place] % (Auto) [place] # Eos # Lymph # (Auto) [place] # (Auto) Eos # (Auto) Seg Neutrophils % Seg Neuts % (Manual) Baso # (Auto) Lymphocytes % (Manual) Monocytes % (Manual) Eosinophils % (Manual) Basophils % (Manual) Seg Neutrophils # Seg Neutrophils # Man Lymphocytes # (Manual) Monocytes # (Manual) Eosinophils # (Manual) Nucleated RBC % Basophils # (Manual) PT INR APTT Heparin Anti-Xa Level ABG pH POC ABG pO2 ABG pO2 ABG HCO3 ABG O2 Saturation ABG Base Excess POC ABG pCO2 ABG Hemoglobin ABG Oxyhemoglobin ABG Sodium ABG Chloride ABG Glucose Oxyhemoglobin Sodium Potassium Chloride Carbon Dioxide BUN Creatinine Glucose POC Glucose 125 H 143 H 158 H Lactic Acid Calcium Phosphorus Magnesium AST ALT Lactate Dehydrogenase Total Bilirubin Direct Bilirubin CK-MB (CK-2) C-Reactive Protein NT-Pro-B Natriuret Pep Total Protein Albumin Arterial Blood Glucose Urine WBC (Auto) Urine Creatinine Digoxin 03/09/20 03/09/20 03/09/20 06:32 06:32 11:34 WBC RBC Hgb 9.8 L Hct 31.6 L MCHC 31 L RDW 23.1 H MCV 80 L MCH 25 L Lymph % (Auto) 35.1 H [place] % (Auto) 11.4 H [place] # Eos # Lymph # (Auto) [place] # (Auto) Eos # (Auto) Seg Neutrophils % Seg Neuts % (Manual) Baso # (Auto) Lymphocytes % (Manual) Monocytes % (Manual) Eosinophils % (Manual) Basophils % (Manual) Seg Neutrophils # Seg Neutrophils # Man Lymphocytes # (Manual) Monocytes # (Manual) Eosinophils # (Manual) Nucleated RBC % Basophils # (Manual) PT INR APTT Heparin Anti-Xa Level ABG pH POC ABG pO2 ABG pO2 ABG HCO3 ABG O2 Saturation ABG Base Excess POC ABG pCO2 ABG Hemoglobin ABG Oxyhemoglobin ABG Sodium ABG Chloride ABG Glucose Oxyhemoglobin Sodium 136 L Potassium Chloride Carbon Dioxide BUN 25 H Creatinine 0.6 L Glucose 170 H POC Glucose 140 H Lactic Acid Calcium Phosphorus Magnesium AST ALT Lactate Dehydrogenase Total Bilirubin Direct Bilirubin CK-MB (CK-2) C-Reactive Protein NT-Pro-B Natriuret Pep Total Protein Albumin Arterial Blood Glucose Urine WBC (Auto) Urine Creatinine Digoxin 03/09/20 03/09/20 03/10/20 18:10 23:11 05:41 WBC RBC Hgb Hct MCHC RDW MCV MCH Lymph % (Auto) [place] % (Auto) [place] # Eos # Lymph # (Auto) [place] # (Auto) Eos # (Auto) Seg Neutrophils % Seg Neuts % (Manual) Baso # (Auto) Lymphocytes % (Manual) Monocytes % (Manual) Eosinophils % (Manual) Basophils % (Manual) Seg Neutrophils # Seg Neutrophils # Man Lymphocytes # (Manual) Monocytes # (Manual) Eosinophils # (Manual) Nucleated RBC % Basophils # (Manual) PT INR APTT Heparin Anti-Xa Level ABG pH POC ABG pO2 ABG pO2 ABG HCO3 ABG O2 Saturation ABG Base Excess POC ABG pCO2 ABG Hemoglobin ABG Oxyhemoglobin ABG Sodium ABG Chloride ABG Glucose Oxyhemoglobin Sodium Potassium Chloride Carbon Dioxide BUN Creatinine Glucose POC Glucose 153 H 111 H 138 H Lactic Acid Calcium Phosphorus Magnesium AST ALT Lactate Dehydrogenase Total Bilirubin Direct Bilirubin CK-MB (CK-2) C-Reactive Protein NT-Pro-B Natriuret Pep Total Protein Albumin Arterial Blood Glucose Urine WBC (Auto) Urine Creatinine Digoxin 03/10/20 03/10/20 03/10/20 11:15 17:58 23:36 WBC RBC Hgb Hct MCHC RDW MCV MCH Lymph % (Auto) [place] % (Auto) [place] # Eos # Lymph # (Auto) [place] # (Auto) Eos # (Auto) Seg Neutrophils % Seg Neuts % (Manual) Baso # (Auto) Lymphocytes % (Manual) Monocytes % (Manual) Eosinophils % (Manual) Basophils % (Manual) Seg Neutrophils # Seg Neutrophils # Man Lymphocytes # (Manual) Monocytes # (Manual) Eosinophils # (Manual) Nucleated RBC % Basophils # (Manual) PT INR APTT Heparin Anti-Xa Level ABG pH POC ABG pO2 ABG pO2 ABG HCO3 ABG O2 Saturation ABG Base Excess POC ABG pCO2 ABG Hemoglobin ABG Oxyhemoglobin ABG Sodium ABG Chloride ABG Glucose Oxyhemoglobin Sodium Potassium Chloride Carbon Dioxide BUN Creatinine Glucose POC Glucose 141 H 149 H 148 H Lactic Acid Calcium Phosphorus Magnesium AST ALT Lactate Dehydrogenase Total Bilirubin Direct Bilirubin CK-MB (CK-2) C-Reactive Protein NT-Pro-B Natriuret Pep Total Protein Albumin Arterial Blood Glucose Urine WBC (Auto) Urine Creatinine Digoxin 03/11/20 03/11/20 03/12/20 05:55 17:43 04:45 WBC RBC Hgb Hct MCHC RDW MCV MCH Lymph % (Auto) [place] % (Auto) [place] # Eos # Lymph # (Auto) [place] # (Auto) Eos # (Auto) Seg Neutrophils % Seg Neuts % (Manual) Baso # (Auto) Lymphocytes % (Manual) Monocytes % (Manual) Eosinophils % (Manual) Basophils % (Manual) Seg Neutrophils # Seg Neutrophils # Man Lymphocytes # (Manual) Monocytes # (Manual) Eosinophils # (Manual) Nucleated RBC % Basophils # (Manual) PT INR APTT Heparin Anti-Xa Level ABG pH 7.454 H POC ABG pO2 69.2 L ABG pO2 ABG HCO3 ABG O2 Saturation ABG Base Excess POC ABG pCO2 ABG Hemoglobin 11.2 L ABG Oxyhemoglobin ABG Sodium 134.7 L ABG Chloride ABG Glucose 151 H Oxyhemoglobin Sodium Potassium Chloride Carbon Dioxide BUN Creatinine Glucose POC Glucose 181 H 107 H Lactic Acid Calcium Phosphorus Magnesium AST ALT Lactate Dehydrogenase Total Bilirubin Direct Bilirubin CK-MB (CK-2) C-Reactive Protein NT-Pro-B Natriuret Pep Total Protein Albumin Arterial Blood Glucose 151 H Urine WBC (Auto) Urine Creatinine Digoxin 03/12/20 03/12/20 03/12/20 05:36 11:36 17:40 WBC RBC Hgb Hct MCHC RDW MCV MCH Lymph % (Auto) [place] % (Auto) [place] # Eos # Lymph # (Auto) [place] # (Auto) Eos # (Auto) Seg Neutrophils % Seg Neuts % (Manual) Baso # (Auto) Lymphocytes % (Manual) Monocytes % (Manual) Eosinophils % (Manual) Basophils % (Manual) Seg Neutrophils # Seg Neutrophils # Man Lymphocytes # (Manual) Monocytes # (Manual) Eosinophils # (Manual) Nucleated RBC % Basophils # (Manual) PT INR APTT Heparin Anti-Xa Level ABG pH POC ABG pO2 ABG pO2 ABG HCO3 ABG O2 Saturation ABG Base Excess POC ABG pCO2 ABG Hemoglobin ABG Oxyhemoglobin ABG Sodium ABG Chloride ABG Glucose Oxyhemoglobin Sodium Potassium Chloride Carbon Dioxide BUN Creatinine Glucose POC Glucose 137 H 122 H 116 H Lactic Acid Calcium Phosphorus Magnesium AST ALT Lactate Dehydrogenase Total Bilirubin Direct Bilirubin CK-MB (CK-2) C-Reactive Protein NT-Pro-B Natriuret Pep Total Protein Albumin Arterial Blood Glucose Urine WBC (Auto) Urine Creatinine Digoxin 03/12/20 03/13/20 03/13/20 23:17 05:47 11:35 WBC RBC Hgb Hct MCHC RDW MCV MCH Lymph % (Auto) [place] % (Auto) [place] # Eos # Lymph # (Auto) [place] # (Auto) Eos # (Auto) Seg Neutrophils % Seg Neuts % (Manual) Baso # (Auto) Lymphocytes % (Manual) Monocytes % (Manual) Eosinophils % (Manual) Basophils % (Manual) Seg Neutrophils # Seg Neutrophils # Man Lymphocytes # (Manual) Monocytes # (Manual) Eosinophils # (Manual) Nucleated RBC % Basophils # (Manual) PT INR APTT Heparin Anti-Xa Level ABG pH POC ABG pO2 ABG pO2 ABG HCO3 ABG O2 Saturation ABG Base Excess POC ABG pCO2 ABG Hemoglobin ABG Oxyhemoglobin ABG Sodium ABG Chloride ABG Glucose Oxyhemoglobin Sodium Potassium Chloride Carbon Dioxide BUN Creatinine Glucose POC Glucose 118 H 142 H 146 H Lactic Acid Calcium Phosphorus Magnesium AST ALT Lactate Dehydrogenase Total Bilirubin Direct Bilirubin CK-MB (CK-2) C-Reactive Protein NT-Pro-B Natriuret Pep Total Protein Albumin Arterial Blood Glucose Urine WBC (Auto) Urine Creatinine Digoxin 03/13/20 03/13/20 03/14/20 17:25 23:27 05:04 WBC RBC Hgb Hct MCHC RDW MCV MCH Lymph % (Auto) [place] % (Auto) [place] # Eos # Lymph # (Auto) [place] # (Auto) Eos # (Auto) Seg Neutrophils % Seg Neuts % (Manual) Baso # (Auto) Lymphocytes % (Manual) Monocytes % (Manual) Eosinophils % (Manual) Basophils % (Manual) Seg Neutrophils # Seg Neutrophils # Man Lymphocytes # (Manual) Monocytes # (Manual) Eosinophils # (Manual) Nucleated RBC % Basophils # (Manual) PT INR APTT Heparin Anti-Xa Level ABG pH POC ABG pO2 ABG pO2 ABG HCO3 ABG O2 Saturation ABG Base Excess POC ABG pCO2 ABG Hemoglobin ABG Oxyhemoglobin ABG Sodium ABG Chloride ABG Glucose Oxyhemoglobin Sodium Potassium Chloride Carbon Dioxide BUN Creatinine Glucose POC Glucose 138 H 160 H 159 H Lactic Acid Calcium Phosphorus Magnesium AST ALT Lactate Dehydrogenase Total Bilirubin Direct Bilirubin CK-MB (CK-2) C-Reactive Protein NT-Pro-B Natriuret Pep Total Protein Albumin Arterial Blood Glucose Urine WBC (Auto) Urine Creatinine Digoxin 03/14/20 03/14/20 03/15/20 11:19 16:18 00:18 WBC RBC Hgb Hct MCHC RDW MCV MCH Lymph % (Auto) [place] % (Auto) [place] # Eos # Lymph # (Auto) [place] # (Auto) Eos # (Auto) Seg Neutrophils % Seg Neuts % (Manual) Baso # (Auto) Lymphocytes % (Manual) Monocytes % (Manual) Eosinophils % (Manual) Basophils % (Manual) Seg Neutrophils # Seg Neutrophils # Man Lymphocytes # (Manual) Monocytes # (Manual) Eosinophils # (Manual) Nucleated RBC % Basophils # (Manual) PT INR APTT Heparin Anti-Xa Level ABG pH POC ABG pO2 ABG pO2 ABG HCO3 ABG O2 Saturation ABG Base Excess POC ABG pCO2 ABG Hemoglobin ABG Oxyhemoglobin ABG Sodium ABG Chloride ABG Glucose Oxyhemoglobin Sodium Potassium Chloride Carbon Dioxide BUN Creatinine Glucose POC Glucose 130 H 170 H 125 H Lactic Acid Calcium Phosphorus Magnesium AST ALT Lactate Dehydrogenase Total Bilirubin Direct Bilirubin CK-MB (CK-2) C-Reactive Protein NT-Pro-B Natriuret Pep Total Protein Albumin Arterial Blood Glucose Urine WBC (Auto) Urine Creatinine Digoxin 03/15/20 03/15/20 03/15/20 04:05 04:05 05:36 WBC RBC Hgb 10.0 L Hct 31.6 L MCHC RDW 22.4 H MCV 77 L MCH 24 L Lymph % (Auto) 36.2 H [place] % (Auto) 9.4 H [place] # Eos # Lymph # (Auto) [place] # (Auto) Eos # (Auto) Seg Neutrophils % Seg Neuts % (Manual) Baso # (Auto) Lymphocytes % (Manual) Monocytes % (Manual) Eosinophils % (Manual) Basophils % (Manual) Seg Neutrophils # Seg Neutrophils # Man Lymphocytes # (Manual) Monocytes # (Manual) Eosinophils # (Manual) Nucleated RBC % Basophils # (Manual) PT INR APTT Heparin Anti-Xa Level ABG pH POC ABG pO2 ABG pO2 ABG HCO3 ABG O2 Saturation ABG Base Excess POC ABG pCO2 ABG Hemoglobin ABG Oxyhemoglobin ABG Sodium ABG Chloride ABG Glucose Oxyhemoglobin Sodium Potassium Chloride Carbon Dioxide 32 H BUN Creatinine 0.5 L Glucose 141 H POC Glucose 130 H Lactic Acid Calcium Phosphorus Magnesium AST ALT Lactate Dehydrogenase Total Bilirubin Direct Bilirubin CK-MB (CK-2) C-Reactive Protein NT-Pro-B Natriuret Pep Total Protein Albumin Arterial Blood Glucose Urine WBC (Auto) Urine Creatinine Digoxin 03/15/20 03/15/20 03/15/20 11:41 17:38 23:16 WBC RBC Hgb Hct MCHC RDW MCV MCH Lymph % (Auto) [place] % (Auto) [place] # Eos # Lymph # (Auto) [place] # (Auto) Eos # (Auto) Seg Neutrophils % Seg Neuts % (Manual) Baso # (Auto) Lymphocytes % (Manual) Monocytes % (Manual) Eosinophils % (Manual) Basophils % (Manual) Seg Neutrophils # Seg Neutrophils # Man Lymphocytes # (Manual) Monocytes # (Manual) Eosinophils # (Manual) Nucleated RBC % Basophils # (Manual) PT INR APTT Heparin Anti-Xa Level ABG pH POC ABG pO2 ABG pO2 ABG HCO3 ABG O2 Saturation ABG Base Excess POC ABG pCO2 ABG Hemoglobin ABG Oxyhemoglobin ABG Sodium ABG Chloride ABG Glucose Oxyhemoglobin Sodium Potassium Chloride Carbon Dioxide BUN Creatinine Glucose POC Glucose 114 H 144 H 116 H Lactic Acid Calcium Phosphorus Magnesium AST ALT Lactate Dehydrogenase Total Bilirubin Direct Bilirubin CK-MB (CK-2) C-Reactive Protein NT-Pro-B Natriuret Pep Total Protein Albumin Arterial Blood Glucose Urine WBC (Auto) Urine Creatinine Digoxin 03/16/20 03/16/20 03/16/20 05:39 13:16 18:29 WBC RBC Hgb Hct MCHC RDW MCV MCH Lymph % (Auto) [place] % (Auto) [place] # Eos # Lymph # (Auto) [place] # (Auto) Eos # (Auto) Seg Neutrophils % Seg Neuts % (Manual) Baso # (Auto) Lymphocytes % (Manual) Monocytes % (Manual) Eosinophils % (Manual) Basophils % (Manual) Seg Neutrophils # Seg Neutrophils # Man Lymphocytes # (Manual) Monocytes # (Manual) Eosinophils # (Manual) Nucleated RBC % Basophils # (Manual) PT INR APTT Heparin Anti-Xa Level ABG pH POC ABG pO2 ABG pO2 ABG HCO3 ABG O2 Saturation ABG Base Excess POC ABG pCO2 ABG Hemoglobin ABG Oxyhemoglobin ABG Sodium ABG Chloride ABG Glucose Oxyhemoglobin Sodium Potassium Chloride Carbon Dioxide BUN Creatinine Glucose POC Glucose 125 H 153 H 135 H Lactic Acid Calcium Phosphorus Magnesium AST ALT Lactate Dehydrogenase Total Bilirubin Direct Bilirubin CK-MB (CK-2) C-Reactive Protein NT-Pro-B Natriuret Pep Total Protein Albumin Arterial Blood Glucose Urine WBC (Auto) Urine Creatinine Digoxin 03/16/20 03/17/20 03/17/20 23:32 05:50 11:38 WBC RBC Hgb Hct MCHC RDW MCV MCH Lymph % (Auto) [place] % (Auto) [place] # Eos # Lymph # (Auto) [place] # (Auto) Eos # (Auto) Seg Neutrophils % Seg Neuts % (Manual) Baso # (Auto) Lymphocytes % (Manual) Monocytes % (Manual) Eosinophils % (Manual) Basophils % (Manual) Seg Neutrophils # Seg Neutrophils # Man Lymphocytes # (Manual) Monocytes # (Manual) Eosinophils # (Manual) Nucleated RBC % Basophils # (Manual) PT INR APTT Heparin Anti-Xa Level ABG pH POC ABG pO2 ABG pO2 ABG HCO3 ABG O2 Saturation ABG Base Excess POC ABG pCO2 ABG Hemoglobin ABG Oxyhemoglobin ABG Sodium ABG Chloride ABG Glucose Oxyhemoglobin Sodium Potassium Chloride Carbon Dioxide BUN Creatinine Glucose POC Glucose 137 H 160 H 134 H Lactic Acid Calcium Phosphorus Magnesium AST ALT Lactate Dehydrogenase Total Bilirubin Direct Bilirubin CK-MB (CK-2) C-Reactive Protein NT-Pro-B Natriuret Pep Total Protein Albumin Arterial Blood Glucose Urine WBC (Auto) Urine Creatinine Digoxin 03/17/20 03/17/20 03/18/20 16:59 23:29 05:39 WBC RBC Hgb Hct MCHC RDW MCV MCH Lymph % (Auto) [place] % (Auto) [place] # Eos # Lymph # (Auto) [place] # (Auto) Eos # (Auto) Seg Neutrophils % Seg Neuts % (Manual) Baso # (Auto) Lymphocytes % (Manual) Monocytes % (Manual) Eosinophils % (Manual) Basophils % (Manual) Seg Neutrophils # Seg Neutrophils # Man Lymphocytes # (Manual) Monocytes # (Manual) Eosinophils # (Manual) Nucleated RBC % Basophils # (Manual) PT INR APTT Heparin Anti-Xa Level ABG pH POC ABG pO2 ABG pO2 ABG HCO3 ABG O2 Saturation ABG Base Excess POC ABG pCO2 ABG Hemoglobin ABG Oxyhemoglobin ABG Sodium ABG Chloride ABG Glucose Oxyhemoglobin Sodium Potassium Chloride Carbon Dioxide BUN Creatinine Glucose POC Glucose 120 H 141 H 181 H Lactic Acid Calcium Phosphorus Magnesium AST ALT Lactate Dehydrogenase Total Bilirubin Direct Bilirubin CK-MB (CK-2) C-Reactive Protein NT-Pro-B Natriuret Pep Total Protein Albumin Arterial Blood Glucose Urine WBC (Auto) Urine Creatinine Digoxin 03/18/20 03/18/20 03/18/20 11:18 15:34 17:42 WBC RBC Hgb Hct MCHC RDW MCV MCH Lymph % (Auto) [place] % (Auto) [place] # Eos # Lymph # (Auto) [place] # (Auto) Eos # (Auto) Seg Neutrophils % Seg Neuts % (Manual) Baso # (Auto) Lymphocytes % (Manual) Monocytes % (Manual) Eosinophils % (Manual) Basophils % (Manual) Seg Neutrophils # Seg Neutrophils # Man Lymphocytes # (Manual) Monocytes # (Manual) Eosinophils # (Manual) Nucleated RBC % Basophils # (Manual) PT INR APTT Heparin Anti-Xa Level ABG pH POC ABG pO2 ABG pO2 ABG HCO3 ABG O2 Saturation ABG Base Excess POC ABG pCO2 ABG Hemoglobin ABG Oxyhemoglobin ABG Sodium ABG Chloride ABG Glucose Oxyhemoglobin Sodium 132 L Potassium 5.4 H D Chloride 96.8 L Carbon Dioxide BUN 24 H Creatinine 0.6 L Glucose 164 H POC Glucose 142 H 118 H Lactic Acid Calcium Phosphorus Magnesium AST ALT Lactate Dehydrogenase Total Bilirubin Direct Bilirubin CK-MB (CK-2) C-Reactive Protein NT-Pro-B Natriuret Pep Total Protein 6.2 L Albumin 2.8 L Arterial Blood Glucose Urine WBC (Auto) Urine Creatinine Digoxin 03/18/20 03/19/20 03/19/20 23:57 05:40 07:50 WBC RBC Hgb Hct MCHC RDW MCV MCH Lymph % (Auto) [place] % (Auto) [place] # Eos # Lymph # (Auto) [place] # (Auto) Eos # (Auto) Seg Neutrophils % Seg Neuts % (Manual) Baso # (Auto) Lymphocytes % (Manual) Monocytes % (Manual) Eosinophils % (Manual) Basophils % (Manual) Seg Neutrophils # Seg Neutrophils # Man Lymphocytes # (Manual) Monocytes # (Manual) Eosinophils # (Manual) Nucleated RBC % Basophils # (Manual) PT INR APTT Heparin Anti-Xa Level ABG pH POC ABG pO2 ABG pO2 ABG HCO3 ABG O2 Saturation ABG Base Excess POC ABG pCO2 ABG Hemoglobin ABG Oxyhemoglobin ABG Sodium ABG Chloride ABG Glucose Oxyhemoglobin Sodium 136 L Potassium Chloride 97.3 L Carbon Dioxide 31 H BUN 22 H Creatinine 0.5 L Glucose 160 H POC Glucose 127 H 136 H Lactic Acid Calcium Phosphorus Magnesium AST ALT Lactate Dehydrogenase Total Bilirubin Direct Bilirubin CK-MB (CK-2) C-Reactive Protein NT-Pro-B Natriuret Pep Total Protein Albumin Arterial Blood Glucose Urine WBC (Auto) Urine Creatinine Digoxin 03/19/20 03/19/20 03/20/20 12:21 17:27 00:31 WBC RBC Hgb Hct MCHC RDW MCV MCH Lymph % (Auto) [place] % (Auto) [place] # Eos # Lymph # (Auto) [place] # (Auto) Eos # (Auto) Seg Neutrophils % Seg Neuts % (Manual) Baso # (Auto) Lymphocytes % (Manual) Monocytes % (Manual) Eosinophils % (Manual) Basophils % (Manual) Seg Neutrophils # Seg Neutrophils # Man Lymphocytes # (Manual) Monocytes # (Manual) Eosinophils # (Manual) Nucleated RBC % Basophils # (Manual) PT INR APTT Heparin Anti-Xa Level ABG pH POC ABG pO2 ABG pO2 ABG HCO3 ABG O2 Saturation ABG Base Excess POC ABG pCO2 ABG Hemoglobin ABG Oxyhemoglobin ABG Sodium ABG Chloride ABG Glucose Oxyhemoglobin Sodium Potassium Chloride Carbon Dioxide BUN Creatinine Glucose POC Glucose 147 H 152 H 132 H Lactic Acid Calcium Phosphorus Magnesium AST ALT Lactate Dehydrogenase Total Bilirubin Direct Bilirubin CK-MB (CK-2) C-Reactive Protein NT-Pro-B Natriuret Pep Total Protein Albumin Arterial Blood Glucose Urine WBC (Auto) Urine Creatinine Digoxin 03/20/20 03/20/20 03/20/20 05:59 11:45 17:24 WBC RBC Hgb Hct MCHC RDW MCV MCH Lymph % (Auto) [place] % (Auto) [place] # Eos # Lymph # (Auto) [place] # (Auto) Eos # (Auto) Seg Neutrophils % Seg Neuts % (Manual) Baso # (Auto) Lymphocytes % (Manual) Monocytes % (Manual) Eosinophils % (Manual) Basophils % (Manual) Seg Neutrophils # Seg Neutrophils # Man Lymphocytes # (Manual) Monocytes # (Manual) Eosinophils # (Manual) Nucleated RBC % Basophils # (Manual) PT INR APTT Heparin Anti-Xa Level ABG pH POC ABG pO2 ABG pO2 ABG HCO3 ABG O2 Saturation ABG Base Excess POC ABG pCO2 ABG Hemoglobin ABG Oxyhemoglobin ABG Sodium ABG Chloride ABG Glucose Oxyhemoglobin Sodium Potassium Chloride Carbon Dioxide BUN Creatinine Glucose POC Glucose 146 H 142 H 107 H Lactic Acid Calcium Phosphorus Magnesium AST ALT Lactate Dehydrogenase Total Bilirubin Direct Bilirubin CK-MB (CK-2) C-Reactive Protein NT-Pro-B Natriuret Pep Total Protein Albumin Arterial Blood Glucose Urine WBC (Auto) Urine Creatinine Digoxin 03/20/20 03/21/20 03/21/20 23:38 05:38 11:22 WBC RBC Hgb Hct MCHC RDW MCV MCH Lymph % (Auto) [place] % (Auto) [place] # Eos # Lymph # (Auto) [place] # (Auto) Eos # (Auto) Seg Neutrophils % Seg Neuts % (Manual) Baso # (Auto) Lymphocytes % (Manual) Monocytes % (Manual) Eosinophils % (Manual) Basophils % (Manual) Seg Neutrophils # Seg Neutrophils # Man Lymphocytes # (Manual) Monocytes # (Manual) Eosinophils # (Manual) Nucleated RBC % Basophils # (Manual) PT INR APTT Heparin Anti-Xa Level ABG pH POC ABG pO2 ABG pO2 ABG HCO3 ABG O2 Saturation ABG Base Excess POC ABG pCO2 ABG Hemoglobin ABG Oxyhemoglobin ABG Sodium ABG Chloride ABG Glucose Oxyhemoglobin Sodium Potassium Chloride Carbon Dioxide BUN Creatinine Glucose POC Glucose 115 H 133 H 137 H Lactic Acid Calcium Phosphorus Magnesium AST ALT Lactate Dehydrogenase Total Bilirubin Direct Bilirubin CK-MB (CK-2) C-Reactive Protein NT-Pro-B Natriuret Pep Total Protein Albumin Arterial Blood Glucose Urine WBC (Auto) Urine Creatinine Digoxin 03/21/20 03/22/20 03/22/20 18:26 00:10 05:29 WBC RBC Hgb Hct MCHC RDW MCV MCH Lymph % (Auto) [place] % (Auto) [place] # Eos # Lymph # (Auto) [place] # (Auto) Eos # (Auto) Seg Neutrophils % Seg Neuts % (Manual) Baso # (Auto) Lymphocytes % (Manual) Monocytes % (Manual) Eosinophils % (Manual) Basophils % (Manual) Seg Neutrophils # Seg Neutrophils # Man Lymphocytes # (Manual) Monocytes # (Manual) Eosinophils # (Manual) Nucleated RBC % Basophils # (Manual) PT INR APTT Heparin Anti-Xa Level ABG pH POC ABG pO2 ABG pO2 ABG HCO3 ABG O2 Saturation ABG Base Excess POC ABG pCO2 ABG Hemoglobin ABG Oxyhemoglobin ABG Sodium ABG Chloride ABG Glucose Oxyhemoglobin Sodium Potassium Chloride Carbon Dioxide BUN Creatinine Glucose POC Glucose 200 H 123 H 156 H Lactic Acid Calcium Phosphorus Magnesium AST ALT Lactate Dehydrogenase Total Bilirubin Direct Bilirubin CK-MB (CK-2) C-Reactive Protein NT-Pro-B Natriuret Pep Total Protein Albumin Arterial Blood Glucose Urine WBC (Auto) Urine Creatinine Digoxin 03/22/20 03/22/20 03/22/20 06:39 06:39 06:39 WBC RBC Hgb 9.7 L Hct 30.7 L MCHC RDW 22.2 H MCV 77 L MCH 25 L Lymph % (Auto) [place] % (Auto) 9.0 H [place] # Eos # Lymph # (Auto) [place] # (Auto) Eos # (Auto) Seg Neutrophils % Seg Neuts % (Manual) Baso # (Auto) Lymphocytes % (Manual) Monocytes % (Manual) Eosinophils % (Manual) Basophils % (Manual) Seg Neutrophils # Seg Neutrophils # Man Lymphocytes # (Manual) Monocytes # (Manual) Eosinophils # (Manual) Nucleated RBC % Basophils # (Manual) PT INR APTT Heparin Anti-Xa Level ABG pH POC ABG pO2 ABG pO2 ABG HCO3 ABG O2 Saturation ABG Base Excess POC ABG pCO2 ABG Hemoglobin ABG Oxyhemoglobin ABG Sodium ABG Chloride ABG Glucose Oxyhemoglobin Sodium Potassium Chloride Carbon Dioxide 33 H BUN Creatinine 0.5 L Glucose 147 H POC Glucose Lactic Acid Calcium Phosphorus Magnesium AST ALT Lactate Dehydrogenase Total Bilirubin Direct Bilirubin CK-MB (CK-2) C-Reactive Protein NT-Pro-B Natriuret Pep Total Protein Albumin Arterial Blood Glucose Urine WBC (Auto) Urine Creatinine Digoxin 0.8 L 03/22/20 11:22 WBC RBC Hgb Hct MCHC RDW MCV MCH Lymph % (Auto) [place] % (Auto) [place] # Eos # Lymph # (Auto) [place] # (Auto) Eos # (Auto) Seg Neutrophils % Seg Neuts % (Manual) Baso # (Auto) Lymphocytes % (Manual) Monocytes % (Manual) Eosinophils % (Manual) Basophils % (Manual) Seg Neutrophils # Seg Neutrophils # Man Lymphocytes # (Manual) Monocytes # (Manual) Eosinophils # (Manual) Nucleated RBC % Basophils # (Manual) PT INR APTT Heparin Anti-Xa Level ABG pH POC ABG pO2 ABG pO2 ABG HCO3 ABG O2 Saturation ABG Base Excess POC ABG pCO2 ABG Hemoglobin ABG Oxyhemoglobin ABG Sodium ABG Chloride ABG Glucose Oxyhemoglobin Sodium Potassium Chloride Carbon Dioxide BUN Creatinine Glucose POC Glucose 159 H Lactic Acid Calcium Phosphorus Magnesium AST ALT Lactate Dehydrogenase Total Bilirubin Direct Bilirubin CK-MB (CK-2) C-Reactive Protein NT-Pro-B Natriuret Pep Total Protein Albumin Arterial Blood Glucose Urine WBC (Auto) Urine Creatinine Digoxin Allied health notes reviewed: nursing
[2020-03-22] MEDS: DIGOXIN 0.125 MG TAB PO SCH (16:15)
[2020-03-22] MEDS: TAMSULOSIN 0.4 MG CAP PO SCH (21:00)
[2020-03-22] MEDS: POLYETHYLENE GLYCOL 3350 17 GM POWDER PO SCH (21:02)
[2020-03-23] MEDS: INSULIN REGULAR, HUMAN 100 UNIT/ML 3ML VIAL SUB-Q SCH ×4 (00:20→19:13)
[2020-03-23] MEDS: ACETAMINOPHEN 325 MG/10.15 ML ORAL LIQD UNIT DOSE FEEDTUBE PRN ×2 (06:07→19:54)
[2020-03-23] MEDS: GLYCOPYRROLATE 2 MG TAB PO SCH ×3 (08:34→19:51)
[2020-03-23] MEDS: MIDODRINE 5 MG TAB PO SCH ×3 (08:34→19:08)
--- NOTE | 2020-03-23 09:19 | Progress Note ---
Assessment and Plan Assessment and plan: --Acute on chronic hypoxemic respiratory failure; Patient has tracheostomy on vent On CPAP trial Continue nebulizers, , trach care Wean off ventilator as tolerated Pulmonary critical following --Acute exacerbation of COPD; Patient is currently on ventilatory support Continue nebulizers --Left lower lobe PE; Continue Eliquis, ventilatory support --Acute right lower extremity DVT; Patient is on Eliquis --Bilateral multifocal pneumonia/community-acquired Completed antibiotics, improved --Severe sepsis/bilateral pneumonia: Completed antibiotics COVID-19 test; 11/24/2019; negative 11/26/2019; negative 12/29/2019: Negative --Paroxysmal atrial fibrillation; Now rate controlled, Stable on amiodarone and Eliquis --Acute on chronic combined systolic and diastolic congestive heart failure Ischemic cardiomyopathy left ventricular ejection fraction 40 to 45% --H/o CAD [[facility] 12/2018 in-stent restenosis] Patient is stable on current cardiac medications --Hypertensive emergency; present on admission Reasonable blood pressures, continue current antihypertensives As needed medications --History of alcohol abuse/alcohol withdrawal; Was on CIWA protocol, now stable --Oropharyngeal dysphagia; status post PEG placement Continue PEG feeds per protocol --History of partial small bowel obstruction; resolved Surgery evaluated. --Obesity; BMI 34.7 Patient needs weight reduction when medically stable --Severe protein calorie malnutrition/hypoalbuminemia Nutrition supplements, dietitian following, PEG feeds --DVT prophylaxis;Eliquis --Full CODE STATUS 03/19/2020. Continue current vent per pulmonary recommendations. Pressure support ventilation trials as tolerated. Continue trach care, secretion control and airway management. Mobility protocols for pressure ulcer prophylaxis. 03/20/2020. Rate better controlled on digoxin and metoprolol per cardiology. Patient currently off amiodarone due to elevated liver enzymes. Continue anticoagulation with Eliquis. IV metoprolol as needed. No statins for now secondary to elevated liver enzymes. Patient remains on AC mode ventilation rate 12, tidal volume 450, FiO2 30% and PEEP of 6. Cont. PSV as figueroa. Continue trach care, secretion control and airway management. Mobility protocols for pressure ulcer prophylaxis. Patient is uninsured and his only d/c option is to return home with family. 03/21/2020. Patient still with elevated heart rate but better on digoxin and metoprolol per cardiology. Patient currently off amiodarone due to elevated liver enzymes. Continue anticoagulation with Eliquis. IV metoprolol as needed. No statins for now secondary to elevated liver enzymes. Patient remains on AC mode mechanical ventilation with rate 12, tidal volume 450, FiO2 30% and PEEP of 6. Continue PSV trials as tolerated. Continue trach care, secretion control and airway management. Mobility protocols for pressure ulcer prophylaxis. Patient is uninsured and his only d/c option is to return home with family. 03/22/2020; patient remains on ventilatory support, continue to wean as tolerated, trach care Awaiting LTAC placement, however patient has multiple social issues, mobility protocols blood pressure ulcers DVT prophylaxis, will continue current management 03/23/2020; patient remains on ventilatory support, tracheostomy, on CPAP trial The high probability of a clinically significant, sudden or life threatening det erioration of the [Respiratory, cardiovascular & neurological] system(s) required my full and direct attention, intervention and personal management. The aggregate critical care time was [34] minutes without overlap. Time includes spent on [x] Data Review and interpretation [x] Patient assessment and monitoring of vital signs [x] Documentation [x] Medication orders and management History Interval history: I have seen and examined the patient at the bedside Tracheostomy on ventilatory support Patient is alert and awake Vital signs noted Hospitalist Physical - Constitutional Vitals: Temp Pulse Resp BP Pulse Ox 97.8 F 123 H 19 98/77 100 03/23/20 04:00 03/23/20 08:19 03/23/20 08:19 03/23/20 08:19 03/23/20 08:19 General appearance: Present: no acute distress, well-nourished, other (Tracheostomy on vent) - EENT Eyes: Present: PERRL, EOM intact - Neck Neck: Present: supple, normal ROM - Respiratory Respiratory effort: normal Respiratory: bilateral: diminished, rhonchi, negative: rales, wheezing - Cardiovascular Rhythm: regular Heart Sounds: Present: S1 & S2 - Extremities Extremities: no ischemia, No edema - Abdominal General gastrointestinal: soft, non-tender, non-distended, normal bowel sounds - Integumentary Integumentary: Present: clear, warm - Psychiatric Psychiatric: appropriate mood/affect, cooperative - Neurologic Neurologic: moves all extremities, other (on vent) HEART Score - HEART Score Troponin: Troponin T < 0.010 ng/mL (0.00-0.029) 10/27/20 01:35 Results - Labs CBC & Chem 7: 03/22/20 06:39 03/22/20 06:39 Labs: Laboratory Last Values WBC 6.0 K/mm3 (4.5-11.0) 03/22/20 06:39 RBC 3.97 M/mm3 (3.65-5.03) 03/22/20 06:39 Hgb 9.7 gm/dl (11.8-15.2) L 03/22/20 06:39 Hct 30.7 % (35.5-45.6) L 03/22/20 06:39 MCV 77 fl (84-94) L 03/22/20 06:39 MCH 25 pg (28-32) L 03/22/20 06:39 MCHC 32 % (32-34) 03/22/20 06:39 RDW 22.2 % (13.2-15.2) H 03/22/20 06:39 Plt Count 166 K/mm3 (140-440) 03/22/20 06:39 Lymph % (Auto) 32.8 % (13.4-35.0) 03/22/20 06:39 [place] % (Auto) 9.0 % (0.0-7.3) H 03/22/20 06:39 Eos % (Auto) 2.4 % (0.0-4.3) 03/22/20 06:39 Baso % (Auto) 0.3 % (0.0-1.8) 03/22/20 06:39 Lymph # (Auto) 2.0 K/mm3 (1.2-5.4) 03/22/20 06:39 [place] # (Auto) 0.5 K/mm3 (0.0-0.8) 03/22/20 06:39 Eos # (Auto) 0.1 K/mm3 (0.0-0.4) 03/22/20 06:39 Baso # (Auto) 0.0 K/mm3 (0.0-0.1) 03/22/20 06:39 Add Manual Diff Complete 02/15/20 06:59 Total Counted 100 02/15/20 06:59 Seg Neuts % (Manual) 58.0 % (40.0-70.0) 02/15/20 06:59 Band Neutrophils % 0 % 02/15/20 06:59 Seg Neutrophils % 55.5 % (40.0-70.0) 03/22/20 06:39 Lymphocytes % (Manual) 34.0 % (13.4-35.0) 02/15/20 06:59 Reactive Lymphs % (Man) 1.0 % 02/15/20 06:59 Monocytes % (Manual) 4.0 % (0.0-7.3) 02/15/20 06:59 Eosinophils % (Manual) 0 % (0.0-4.3) 02/15/20 06:59 Basophils % (Manual) 2.0 % (0.0-1.8) H 02/15/20 06:59 Metamyelocytes % 1.0 % 02/15/20 06:59 Myelocytes % 0 % 02/15/20 06:59 Promyelocytes % 0 % 02/15/20 06:59 Blast Cells % 0 % 02/15/20 06:59 Nucleated RBC % 1.0 % (0.0-0.9) H 02/15/20 06:59 Seg Neutrophils # Man 5.9 K/mm3 (1.8-7.7) 02/15/20 06:59 Seg Neutrophils # 3.4 K/mm3 (1.8-7.7) 03/22/20 06:39 Band Neutrophils # 0.0 K/mm3 02/15/20 06:59 Lymphocytes # (Manual) 3.5 K/mm3 (1.2-5.4) 02/15/20 06:59 Abs React Lymphs (Man) 0.1 K/mm3 02/15/20 06:59 Monocytes # (Manual) 0.4 K/mm3 (0.0-0.8) 02/15/20 06:59 Eosinophils # (Manual) 0.0 K/mm3 (0.0-0.4) 02/15/20 06:59 Basophils # (Manual) 0.2 K/mm3 (0.0-0.1) H 02/15/20 06:59 Metamyelocytes # 0.1 K/mm3 02/15/20 06:59 Myelocytes # 0.0 K/mm3 02/15/20 06:59 Promyelocytes # 0.0 K/mm3 02/15/20 06:59 Blast Cells # 0.0 K/mm3 02/15/20 06:59 WBC Morphology Not Reportable 02/15/20 06:59 Hypersegmented Neuts Not Reportable 02/15/20 06:59 Hyposegmented Neuts Not Reportable 02/15/20 06:59 Hypogranular Neuts Not Reportable 02/15/20 06:59 Smudge Cells Not Reportable 02/15/20 06:59 Toxic Granulation Not Reportable 02/15/20 06:59 Toxic Vacuolation Not Reportable 02/15/20 06:59 Dohle Bodies Not Reportable 02/15/20 06:59 Pelger-Huet Anomaly Not Reportable 02/15/20 06:59 Hector Rods Not Reportable 02/15/20 06:59 Platelet Estimate Consistent w auto 02/15/20 06:59 Clumped Platelets Not Reportable 02/15/20 06:59 Plt Clumps, EDTA Not Reportable 02/15/20 06:59 Large Platelets Not Reportable 02/15/20 06:59 Giant Platelets Not Reportable 02/15/20 06:59 Platelet Satelliting Not Reportable 02/15/20 06:59 Plt Morphology Comment Giant platelets 02/15/20 06:59 RBC Morphology Not Reportable 02/15/20 06:59 Dimorphic RBCs Not Reportable 02/15/20 06:59 Polychromasia Not Reportable 02/15/20 06:59 Hypochromasia 1+ 02/15/20 06:59 Poikilocytosis Few 02/15/20 06:59 Anisocytosis 1+ 02/15/20 06:59 Microcytosis Not Reportable 02/15/20 06:59 Macrocytosis Not Reportable 02/15/20 06:59 Spherocytes Not Reportable 02/15/20 06:59 Pappenheimer Bodies Not Reportable 02/15/20 06:59 Sickle Cells Not Reportable 02/15/20 06:59 Target Cells 1+ 02/15/20 06:59 Tear Drop Cells Few 02/15/20 06:59 Ovalocytes Not Reportable 02/15/20 06:59 Helmet Cells Not Reportable 02/15/20 06:59 Gottlieb-[place] Bodies Not Reportable 02/15/20 06:59 Wainwright Rings Not Reportable 02/15/20 06:59 Oc Cells Not Reportable 02/15/20 06:59 Bite Cells Not Reportable 02/15/20 06:59 Crenated Cell Not Reportable 02/15/20 06:59 Elliptocytes Few 02/15/20 06:59 Acanthocytes (Spur) Not Reportable 02/15/20 06:59 Rouleaux Not Reportable 02/15/20 06:59 Hemoglobin C Crystals Not Reportable 02/15/20 06:59 Schistocytes Not Reportable 02/15/20 06:59 Malaria parasites Not Reportable 02/15/20 06:59 Clifford Bodies Not Reportable 02/15/20 06:59 Hem Pathologist Commnt No 02/15/20 06:59 PT 27.0 Sec. (12.2-14.9) H 02/07/20 15:03 INR 2.46 (0.87-1.13) H 02/07/20 15:03 APTT 31.5 Sec. (24.2-36.6) 01/22/20 09:58 Heparin Anti-Xa Level 1.34 U.I./ml (0.3-0.7) H 01/22/20 04:45 ABG pH 7.454 (7.320-7.450) H 03/12/20 04:45 POC ABG pCO2 45.6 mmHg (32.0-48.0) 03/12/20 04:45 ABG pCO2 47.8 mm Hg 02/20/20 06:45 POC ABG pO2 69.2 mmHg (83-108) L 03/12/20 04:45 ABG pO2 88.7 mm Hg (80.0-90.0) 02/20/20 06:45 POC ABG HCO3 31.3 03/12/20 04:45 ABG HCO3 33.3 mmol/L (20.0-26.0) H 02/20/20 06:45 ABG O2 Saturation 97.2 % (95.0-99.0) 02/20/20 06:45 ABG O2 Content 13.3 (0.0-44) 02/20/20 06:45 POC ABG Base Excess 6.5 03/12/20 04:45 ABG Base Excess 8.4 mmol/L (-2.0-3.0) H 02/20/20 06:45 ABG Hemoglobin 11.2 (12.0-17.5) L 03/12/20 04:45 ABG Oxyhemoglobin 84 (94-98) L 12/22/19 03:22 ABG Carboxyhemoglobin 2.9 % (0.0-5.0) 02/20/20 06:45 ABG Methemoglobin 0.4 % (0.0-1.5) 02/20/20 06:45 ABG Sodium 134.7 mmol/L (136.0-145.0) L 03/12/20 04:45 ABG Potassium 3.9 mmol/L (3.40-4.50) 03/12/20 04:45 ABG Chloride 98.0 mmol/L (98-107) 03/12/20 04:45 ABG Glucose 151 mg/dL (65-95) H 03/12/20 04:45 Oxyhemoglobin 94.1 % (95.0-99.0) L 02/20/20 06:45 Carboxyhemoglobin 0.7 (0.5-1.5) 12/22/19 03:22 FiO2 30 03/12/20 04:45 Sodium 139 mmol/L (137-145) 03/22/20 06:39 Potassium 3.8 mmol/L (3.6-5.0) 03/22/20 06:39 Chloride 100.9 mmol/L (98-107) 03/22/20 06:39 Carbon Dioxide 33 mmol/L (22-30) H 03/22/20 06:39 Anion Gap 9 mmol/L 03/22/20 06:39 BUN 19 mg/dL (9-20) 03/22/20 06:39 Creatinine 0.5 mg/dL (0.8-1.3) L 03/22/20 06:39 Estimated GFR > 60 ml/min 03/22/20 06:39 BUN/Creatinine Ratio 38 % 03/22/20 06:39 Glucose 147 mg/dL (75-100) H 03/22/20 06:39 POC Glucose 136 mg/dL (70-105) H 03/23/20 05:02 Lactic Acid 1.60 mmol/L (0.7-2.0) 02/03/20 12:49 Ferritin 84.4 ng/mL (30.0-300.0) 11/24/19 04:53 Calcium 9.0 mg/dL (8.4-10.2) 03/22/20 06:39 Phosphorus 4.10 mg/dL (2.5-4.5) 01/31/20 19:24 Magnesium 2.40 mg/dL (1.7-2.3) H 02/10/20 07:40 Total Bilirubin 0.90 mg/dL (0.1-1.2) 03/18/20 15:34 Direct Bilirubin 0.9 mg/dL (0-0.2) H 02/08/20 19:00 Indirect Bilirubin 0.4 mg/dL 02/08/20 19:00 Total Creatine Kinase 141 units/L (55-170) 11/24/19 02:53 CK-MB (CK-2) 4.3 ng/mL (0.0-4.0) H 11/24/19 02:53 AST 23 units/L (5-40) 03/18/20 15:34 CK-MB (CK-2) Rel Index 3.0 (0-4) 11/24/19 02:53 ALT 22 units/L (7-56) 03/18/20 15:34 Alkaline Phosphatase 96 units/L (35-129) 03/18/20 15:34 C-Reactive Protein 8.50 mg/dL (0.00-1.30) H 12/01/19 12:16 Ammonia 35.0 umol/L (25-60) 02/03/20 12:49 Lactate Dehydrogenase 228 units/L (91-180) H 12/19/19 04:45 Troponin T < 0.010 ng/mL (0.00-0.029) 01/19/20 01:35 NT-Pro-B Natriuret Pep 3866 pg/mL (0-900) H 01/01/20 10:40 Total Protein 6.2 g/dL (6.3-8.2) L 03/18/20 15:34 Albumin 2.8 g/dL (3.9-5) L 03/18/20 15:34 Albumin/Globulin Ratio 0.8 % 03/18/20 15:34 Procalcitonin 0.44 ng/mL (<0.15) 02/03/20 12:49 Arterial Blood Glucose 151 mg/dL (65-95) H 03/12/20 04:45 Arterial Blood Ionized Calcium 4.8 mg/dL (4.6-5.3) 03/12/20 04:45 Urine Color Cecy (Yellow) 02/26/20 07:50 Urine Turbidity Clear (Clear) 02/26/20 07:50 Urine pH 5.0 (5.0-7.0) 02/26/20 07:50 Ur Specific [place] 1.025 (1.003-1.030) 02/26/20 07:50 Urine Protein 30 mg/dl mg/dL (Negative) 02/26/20 07:50 Urine Glucose (UA) Neg mg/dL (Negative) 02/26/20 07:50 Urine Ketones Neg mg/dL (Negative) 02/26/20 07:50 Urine Blood Sm (Negative) 02/26/20 07:50 Urine Nitrite Neg (Negative) 02/26/20 07:50 Urine Bilirubin Neg (Negative) 02/26/20 07:50 Urine Urobilinogen 4.0 mg/dL (<2.0) 02/26/20 07:50 Ur Leukocyte Esterase Lg (Negative) 02/26/20 07:50 Urine WBC (Auto) > 182.0 /HPF (0.0-6.0) H 02/26/20 07:50 Urine RBC (Auto) 84.0 /HPF (0.0-6.0) 02/26/20 07:50 U Epithel Cells (Auto) 2.0 /HPF (0-13.0) 12/31/19 18:04 Urine Bacteria (Auto) 4+ /HPF (Negative) 02/26/20 07:50 Urine WBC Clumps 2+ /HPF 02/26/20 07:50 Urine Mucus 1+ /HPF 02/26/20 07:50 Urine Creatinine 57.4 mg/dL (0.1-20.0) H 01/31/20 Unknown Urine Sodium 59 mmol/L 01/31/20 Unknown Vancomycin Trough 14.2 ug/mL (5.0-20.0) 12/13/19 15:01 Digoxin 0.8 ng/mL (0.9-2.0) L 03/22/20 06:39 Coronavirus (PCR) Negative (Negative) 12/29/19 10:07 Hepatitis A IgM Ab Non-reactive (NonReactive) 02/05/20 06:37 Hep Bs Antigen Non-reactive (Negative) 02/05/20 06:37 Hep B Core IgM Ab Non-reactive (NonReactive) 02/05/20 06:37 Hepatitis C Antibody Non-reactive (NonReactive) 02/05/20 06:37 Blood Type O POSITIVE 01/21/20 13:00 Antibody Screen Negative 01/21/20 13:00 - Diagnostic Impressions Diagnostic Impressions: Echocardiogram 11/29/19 07:37 Transthoracic Echocardiogram Indication: CHF BP: 116/72 HR: 33 Conclusions *The study is technically limited due to poor acoustic windows. *Global left ventricular systolic function is normal. *The estimated ejection fraction is 50-55%. *Mild concentric left ventricular hypertrophy is observed. *There is trace of mitral regurgitation. *There is mild tricuspid regurgitation. Findings Procedure Info: The study quality is poor. The study is technically limited due to poor acoustic windows. The study is technically limited due to patient body habitus. Left Ventricle: The left ventricular chamber size is normal. Mild concentric left ventricular hypertrophy is observed. Global left ventricular systolic function is normal. The estimated ejection fraction is 50-55%. Left Atrium: The left atrial chamber size is normal. Right Ventricle: The right ventricular cavity size is normal. Right Atrium: The right atrial cavity size is normal. Aortic Valve: The aortic valve leaflets are moderately thickened. There is trace of aortic regurgitation. There is no evidence of aortic stenosis. Mitral Valve: The mitral valve leaflets are mildly thickened. There is trace of mitral regurgitation. There is no evidence of mitral stenosis. Tricuspid Valve: There is mild tricuspid regurgitation. No pulmonary hypertension is noted. Pulmonic Valve: There is trace pulmonic regurgitation. Pericardium: There is no pericardial effusion. Aorta: There is no dilatation of the aortic root. Venous: The inferior vena cava appears normal in size. Contrast: Definity was used to optimize study. Intravenous contrast was used to enhance endocardial border definition. Measurements Chambers 2D Name Value Normal Range Ao root diameter (2D) 3.4 cm (2 - 3.7) Aortic Valve Name Value Normal Range AV Vmax 0.98 m/sec - AV VTI 16.76 cm - AV peak gradient 3.83 mmHg - AV mean gradient 2.57 mmHg - LVOT diameter 3.11 cm - LVOT Vmax 0.68 m/sec - LVOT VTI 11.52 cm - LVOT peak gradient 1.84 mmHg - LVOT mean gradient 1.27 mmHg - SV LVOT 87.31 ml - MALOU (continuity Vmax) 5.24 cm2 - MALOU (continuity VTI) 5.21 cm2 - Tricuspid Valve Name Value Normal Range IVC diameter 2.24 cm (1.2 - 2.3) Hoffman/IV: Voiding Method Indwelling Catheter IV Catheter Type [Left INT / Saline Lock Antecubital] IV Catheter Type [Right INT / Saline Lock Forearm] IV Catheter Type [Right Hand] Peripheral IV IV Catheter Type [Right Upper INT / Saline Lock arm] IV Catheter Type [Left Upper Mid-line arm] IV Catheter Type [Left Forearm Peripheral IV ] IV Catheter Type [Left Hand] Peripheral IV IV Catheter Type [Left Wrist] INT / Saline Lock IV Catheter Type [Right Peripheral IV Antecubital] Active Medications - Current Medications Current Medications: Generic Name Dose Route Start Last Admin Trade Name Freq PRN Reason Stop Dose Admin Acetaminophen 650 mg 03/12/20 04:29 03/23/20 06:07 Acetaminophen 325 Mg/10.15 Ml Oral Liqd Unit Dose FEEDTUBE 650 mg Q6H PRN Administration Pain, Mild (1-3) Lipase/Protease/Amylase 1 each 01/09/20 12:01 03/18/20 11:09 Lipase 10,500/Protease 25,000/Amylase 43,750 (Units) Dr Lauren FEEDTUBE 1 each PRN PRN Administration For Clogged Feeding Tube Apixaban 5 mg 01/22/20 22:00 03/22/20 21:00 Apixaban 5 Mg Tab PO 5 mg Q12HR CAR Administration Protocol Atorvastatin Calcium 40 mg 01/20/20 22:00 03/22/20 21:01 Atorvastatin 40 Mg Tab PO 40 mg QHS CAR Administration Clopidogrel Bisulfate 75 mg 01/21/20 06:00 03/22/20 09:00 Clopidogrel 75 Mg Tab PO 75 mg QDAY CAR Administration Dextrose 50 ml 01/31/20 18:51 02/05/20 00:56 D50w (25gm) Syringe IV 50 ml Q30MIN PRN Administration Hypoglycemia Protocol Digoxin 0.125 mg 02/25/20 17:00 03/22/20 16:15 Lanoxin PO 0.125 mg DAILY@1700 CAR Administration Docusate Sodium 100 mg 02/22/20 10:00 03/22/20 21:00 Docusate Sodium 100 Mg/10 Ml Oral Liqd FEEDTUBE 100 mg BID CAR Administration Glycopyrrolate 2 mg 02/24/20 21:00 03/23/20 08:34 Glycopyrrolate PO 2 mg TID CAR Administration Haloperidol Lactate 5 mg 02/10/20 14:20 03/19/20 23:26 Haloperidol Lactate 5 Mg/1 Ml Inj IV 5 mg Q6H PRN Administration Agitation Hydrophilic Ointment 1 applic 01/17/20 15:26 02/24/20 23:20 Lip Therapy Vaseline TP 1 applic DIRECT PRN Administration Dry Lips Insulin Human Regular 0 unit 02/01/20 18:00 03/23/20 06:08 Humulin R SUB-Q Not Given Q6H [facility] Protocol Lansoprazole 30 mg 02/05/20 16:00 03/22/20 09:00 Lansoprazole 30 Mg Solutab FEEDTUBE 30 mg QDAY [facility] Administration Metoprolol Tartrate 5 mg 01/11/20 08:00 03/18/20 16:52 Metoprolol Tartrate 5 Mg/5 Ml Inj IV 5 mg Q6H PRN Administration SEE INSTRUCTIONS Metoprolol Tartrate 12.5 mg 02/28/20 12:00 03/22/20 21:02 Metoprolol FEEDTUBE Not Given BID [facility] Midodrine 15 mg 02/04/20 16:00 03/23/20 08:34 Midodrine 5 Mg Tab PO 15 mg TID@0800,1200,1600 [facility] Administration Morphine Sulfate 2 mg 01/06/20 15:41 03/19/20 13:20 Morphine 2 Mg/1 Ml Inj IV 2 mg Q4H PRN Administration Pain, Moderate (4-6) Multi-Ingred Cream/Lotion/Oil/Oint 1 applic 02/01/20 15:52 Artificial Tears Ophth Oint OU Q4HR PRN Dry Eye(s) Nitroglycerin 0.4 mg 01/19/20 21:09 01/20/20 03:03 Nitroglycerin 0.4 Mg Tab Subl SL 0.4 mg .Q5MIN PRN Administration Chest Pain Ondansetron HCl 4 mg 01/05/20 14:37 03/18/20 11:09 Ondansetron 4 Mg/2 Ml Inj IV 4 mg Q8H PRN Administration Nausea And Vomiting Polyethylene Glycol 17 gm 12/04/19 22:00 03/22/20 21:02 Miralax 3350 PO Not Given QHS CAR Quetiapine Fumarate 300 mg 01/13/20 22:00 03/22/20 21:00 Quetiapine 100 Mg Tab PO 300 mg BID CAR Administration Simple Syrup 15 ml 01/09/20 12:01 Simple Syrup 15 Ml FEEDTUBE PRN PRN Hypoglycemia Simple Syrup 30 ml 01/09/20 12:01 Simple Syrup 15 Ml FEEDTUBE PRN PRN Hypoglycemia Sodium Bicarbonate 325 mg 01/09/20 12:01 03/07/20 12:56 Sodium Bicarbonate 325 Mg Tab FEEDTUBE 325 mg PRN PRN Administration For Clogged Feeding Tube Sodium Chloride 10 ml 11/24/19 10:00 03/22/20 21:03 Sodium Chloride 0.9% 10 Ml Flush Syringe IV 10 ml BID CAR Administration Tamsulosin HCl 0.8 mg 12/20/19 22:00 03/22/20 21:00 Tamsulosin 0.4 Mg Cap PO 0.8 mg QHS CAR Administration Nutrition/Malnutrition Assess - Dietary Evaluation Nutrition/Malnutrition Findings: Nutrition Notes Start: 11/24/19 12:22 Freq: Status: Active Protocol: Document 03/22/20 11:05 LM (Rec: 03/22/20 11:10 LM [id number]) Nutrition Notes Initial or Follow up Reassessment Current Diagnosis Coronary Artery Disease,Heart Failure,Respiratory Failure, Stroke,Hyperlipidemia Other Pertinent Diagnosis pneumonia Current Diet Osmolite 1.5 at 65ml/hr Labs/Tests Reviewed Pertinent Medications Humulin Height 6 ft 2 in Weight 130.5 kg [place] Body Weight (kg) 86.36 BMI 36.9 Weight change and time frame Wt change noted. Pt with edema . Weight Status Obese Subjective/Other Information TF running at 55ml/hr. Per RN pt tolerates TF at lower rate and pt vomits when rate is at 65ml/hr. 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 Yes Is Patient Ambulatory and/or Out of Bed No REE-(Blackford-St. Jeor-confined to bed) 2608.188 Kcal/Kg value to use for calculation 16 Approximate Energy Requirements Using 2088 kcal/Kg Calculation Used for Recommendations Kcal/kg Additional Notes Protein needs are 173g ( greater than 2g/kg IBW) Fluid needs are 1 ml/kcal Nutrition Intervention Change Diet Order: Continue TF via PEG Nutrition Support: Osmolite 1.5 at 65 ml/hr. Flush 200 ml q4h. Kcal 2,340 Protein (gm) 98 Fluid (mL) 1,189 Goal #1 Meet at least 75% of pt's energy and protein needs via TF Goal #2 TF tolerance Anticipated Discharge Needs: unable to determine at this time Follow-Up By: 03/28/20 Additional Comments F/U for TF tolerance
[2020-03-23] MEDS: DOCUSATE SODIUM 100 MG/10 ML ORAL LIQD FEEDTUBE SCH ×2 (09:49→22:12)
[2020-03-23] MEDS: METOPROLOL TARTRATE 25 MG TAB FEEDTUBE SCH ×2 (09:49→22:14)
[2020-03-23] MEDS: LANSOPRAZOLE 30 MG SOLUTAB FEEDTUBE SCH (09:49)
[2020-03-23] MEDS: QUEtiapine 100 MG TAB PO SCH ×2 (09:49→22:14)
[2020-03-23] MEDS: CLOPIDOGREL 75 MG TAB PO SCH (09:49)
[2020-03-23] MEDS: APIXABAN 5 MG TAB PO SCH ×2 (09:49→22:12)
--- NOTE | 2020-03-23 14:12 | Progress Note ---
Assessment and Plan - Patient Problems (1) Paroxysmal atrial fibrillation Current Visit: Yes Status: Acute Plan to address problem: Continue current management of atrial fibrillation on a rate control strategy and oral anticoagulation, stable cardiac status. Subjective Date of service: 03/23/20 Principal diagnosis: Ac hypoxemic resp failure; Pneumonia; PUI COVID-19; CHF; COPD; HTN Interval history: Patient is awake, on the vent via his trach. Heart rate is 113, atrial fibrillation. Objective Vital Signs Temp Pulse Resp Resp BP Pulse Ox Pulse Ox 03/23/20 12:12 98 03/23/20 12:06 127 H 23 117/78 98 03/23/20 11:00 122 H 24 94/70 99 03/23/20 10:00 117 H 18 93/61 98 03/23/20 09:49 109 H 95/72 03/23/20 09:00 124 H 26 H 95/72 99 03/23/20 08:19 123 H 19 98/77 100 03/23/20 08:00 98.1 F 124 H 26 H 26 H 98/77 99 03/23/20 07:00 122 H 18 91/69 99 03/23/20 06:07 18 03/23/20 06:00 145 H 29 H 108/75 98 03/23/20 05:27 20 03/23/20 05:00 126 H 25 H 105/57 99 03/23/20 04:51 99 03/23/20 04:50 126 H 105/57 100 03/23/20 04:04 136 H 03/23/20 04:00 97.8 F 121 H 20 105/57 100 03/23/20 03:00 123 H 17 96/65 100 03/23/20 02:00 112 H 15 96/74 100 03/23/20 01:00 125 H 17 102/74 100 03/23/20 00:40 124 H 96/75 100 03/23/20 00:00 97.2 F L 123 H 14 18 99/79 100 03/22/20 23:54 113 H 03/22/20 23:06 125 H 19 96/75 99 03/22/20 23:00 117 H 14 96/75 98 03/22/20 22:01 20 03/22/20 22:00 128 H 20 97/65 100 03/22/20 21:02 118 H 91/73 03/22/20 21:01 25 H 03/22/20 21:00 111 H 14 91/73 100 03/22/20 20:43 99 03/22/20 20:41 99 03/22/20 20:38 114 H 33 H 100/75 99 03/22/20 20:00 97.8 F 109 H 16 104/68 99 03/22/20 19:29 117 H 03/22/20 19:00 126 H 25 H 104/68 98 03/22/20 18:01 130 H 13 109/78 98 03/22/20 17:00 123 H 25 H 97/70 99 03/22/20 16:48 104 H 21 98/74 100 03/22/20 16:15 115 H 98/74 03/22/20 16:01 109 H 17 98/74 100 03/22/20 16:00 97.6 F 117 H 16 22 100 03/22/20 15:00 121 H 22 100/73 100 - Physical Examination General: No Apparent Distress, Other (s/p trach) HEENT: Positive: PERRL Neck: Positive: neck supple, Other (s/p trach) Cardiac: Positive: irregularly irregular Lungs: Positive: Decreased Breath Sounds Neuro: Positive: Weakness Abdomen: Positive: Soft Skin: Positive: Clear Extremities: Absent: edema - Allied health notes Allied health notes reviewed: nursing
--- NOTE | 2020-03-23 17:28 | Progress Note ---
Assessment and Plan atient sleeping at this time. Patient undergoing spontaneous breathing trial with pressure support of 20, FIO2 30%, PEEP 6 and O2 saturation running 100%. Patients blood pressure running slightly low. Patient also tachycardic. Otherwise patient tolerating present ventilator settings good. Patient afebrile. No leukocytosis. Chest xray done 03/10/20reported Mild CHF. Patient is on Apixaban and prevacid. - Patient Problems (1) Acute respiratory failure Current Visit: Yes Status: Acute Plan to address problem: Patient is on mechanical ventilation Pressure support 20, FIO2 30%, PEEP 6. Albuterol/atrovent aerosol treatments. Continue apixaban Continue prevacid. Continue spontaneous breathing trials. (2) COPD exacerbation Current Visit: No Status: Acute Plan to address problem: Patient is on mechanical ventilation Pressure support 20, FIO2 30%, PEEP 6. Albuterol/atrovent aerosol treatments. Continue apixaban Continue prevacid. Continue spontaneous breathing trials. (3) Bilateral pneumonia Current Visit: Yes Status: Acute Plan to address problem: Chest xray 03/10/20 reported CHF Patient afebrile. No leukocytosis. (4) CHF exacerbation Current Visit: Yes Status: Acute Plan to address problem: Management as per cardiology. (5) Cardiomyopathy Current Visit: Yes Status: Acute Plan to address problem: Management as per cardiology. (6) Pancreatic lesion Current Visit: Yes Status: Acute Plan to address problem: Management as per primary care. (7) Paroxysmal atrial fibrillation Current Visit: Yes Status: Acute Plan to address problem: Patient is on apixaban. Management as per cardiology. (8) CVA (cerebral vascular accident) Current Visit: No Status: Acute Qualifiers: Precerebral and cerebral artery: middle cerebral artery Laterality of affected vessel: right Plan to address problem: Management as per primary care. (9) Cocaine dependence Current Visit: No Status: Acute Plan to address problem: Management as per primary care. (10) HTN (hypertension) Current Visit: No Status: Acute Qualifiers: Hypertension type: essential hypertension Qualified Code(s): I10 - Essential (primary) hypertension Plan to address problem: Management as per primary care. (11) Nicotine dependence Current Visit: No Status: Acute Qualifiers: Nicotine product type: cigarettes Substance use status: in withdrawal Qualified Code(s): F17.213 - Nicotine dependence, cigarettes, with withdrawal Plan to address problem: Counseled to stop smoking. (12) Obesity hypoventilation syndrome Current Visit: No Status: Acute Plan to address problem: Patient S/P tracheostomy and on mechanical ventilation. Subjective Date of service: 03/23/20 Principal diagnosis: Ac hypoxemic resp failure; Pneumonia; PUI COVID-19; CHF; COPD; HTN Interval history: Patient sleeping at this time. Patient undergoing spontaneous breathing trial with pressure support of 20, FIO2 30%, PEEP 6 and O2 saturation running 100%. Patients blood pressure running slightly low. Patient also tachycardic. Otherwise patient tolerating present ventilator settings good. Patient afebrile. No leukocytosis. Chest xray done 03/10/20reported Mild CHF. Patient is on Apixaban and prevacid. Objective Vital Signs - 12hr 03/23/20 03/23/20 03/23/20 05:27 06:00 06:07 Temperature Pulse Rate 145 H Respiratory 29 H 18 Rate Respiratory 20 Rate [ Generalized] Blood Pressure 108/75 O2 Sat by Pulse 98 Oximetry O2 Sat by Pulse Oximetry [ Assessment] 03/23/20 03/23/20 03/23/20 07:00 08:00 08:19 Temperature 98.1 F Pulse Rate 122 H 124 H 123 H Respiratory 18 26 H 19 Rate Respiratory 26 H Rate [ Generalized] Blood Pressure 91/69 98/77 98/77 O2 Sat by Pulse 99 99 100 Oximetry O2 Sat by Pulse Oximetry [ Assessment] 03/23/20 03/23/20 03/23/20 09:00 09:49 10:00 Temperature Pulse Rate 124 H 109 H 117 H Respiratory 26 H 18 Rate Respiratory Rate [ Generalized] Blood Pressure 95/72 95/72 93/61 O2 Sat by Pulse 99 98 Oximetry O2 Sat by Pulse Oximetry [ Assessment] 03/23/20 03/23/20 03/23/20 11:00 12:00 12:06 Temperature 97.8 F Pulse Rate 122 H 111 H 127 H Respiratory 24 16 23 Rate Respiratory 26 H Rate [ Generalized] Blood Pressure 94/70 94/70 117/78 O2 Sat by Pulse 99 99 98 Oximetry O2 Sat by Pulse Oximetry [ Assessment] 03/23/20 03/23/20 03/23/20 12:12 13:00 14:00 Temperature Pulse Rate 127 H 110 H Respiratory 25 H 20 Rate Respiratory Rate [ Generalized] Blood Pressure 117/78 111/77 O2 Sat by Pulse 99 100 Oximetry O2 Sat by Pulse 98 Oximetry [ Assessment] 03/23/20 03/23/20 03/23/20 15:00 16:00 16:42 Temperature 98.0 F Pulse Rate 124 H 124 H 96 H Respiratory 26 H 27 H 22 Rate Respiratory Rate [ Generalized] Blood Pressure 93/73 93/75 93/75 O2 Sat by Pulse 98 97 100 Oximetry O2 Sat by Pulse Oximetry [ Assessment] Constitutional: no acute distress, other (elelelderly and obese male, normocephalic with mildly increased respiratory effort at rest) Eyes: non-icteric ENT: oropharynx moist, other (+ midline tracheostomy) Neck: supple, no JVD Effort: mildly labored Ascultation: Bilateral: diminished breath sounds, rhonchi (scant), other (tracheal secretions ) Percussion: Bilateral: not dull Cardiovascular: irregular rhythm Gastrointestinal: normoactive bowel sounds, soft, non-tender, non-distended (protuberant), other (protuberant; PEG in place) Integumentary: normal Extremities: no cyanosis, no edema, pulses normal, no ischemia or petechiae Neurologic: non-focal exam (grossly; moves extremities), pupils equal and round, unable to assess Psychiatric: mood appropriate, affect normal CBC and BMP: 03/22/20 06:39 03/22/20 06:39 ABG, PT/INR, D-dimer: ABG ABG pH 7.454 (7.320-7.450) H 03/12/20 04:45 POC ABG pCO2 45.6 mmHg (32.0-48.0) 03/12/20 04:45 ABG pCO2 47.8 mm Hg 02/20/20 06:45 POC ABG pO2 69.2 mmHg (83-108) L 03/12/20 04:45 ABG pO2 88.7 mm Hg (80.0-90.0) 02/20/20 06:45 POC ABG HCO3 31.3 03/12/20 04:45 ABG O2 Saturation 97.2 % (95.0-99.0) 02/20/20 06:45 PT/INR, D-dimer PT 27.0 Sec. (12.2-14.9) H 02/07/20 15:03 INR 2.46 (0.87-1.13) H 02/07/20 15:03 Abnormal lab findings: Abnormal Labs 11/24/19 11/24/19 11/24/19 02:53 02:53 03:45 WBC 14.3 H RBC Hgb Hct MCHC RDW 17.2 H MCV MCH Lymph % (Auto) [place] % (Auto) [place] # Eos # Lymph # (Auto) [place] # (Auto) Eos # (Auto) Seg Neutrophils % Seg Neuts % (Manual) Baso # (Auto) Lymphocytes % (Manual) Monocytes % (Manual) Eosinophils % (Manual) Basophils % (Manual) Seg Neutrophils # Seg Neutrophils # Man 8.3 H Lymphocytes # (Manual) Monocytes # (Manual) 0.9 H Eosinophils # (Manual) Nucleated RBC % Basophils # (Manual) PT INR APTT Heparin Anti-Xa Level ABG pH 7.313 L POC ABG pO2 ABG pO2 102.8 H ABG HCO3 ABG O2 Saturation ABG Base Excess -2.9 L POC ABG pCO2 ABG Hemoglobin ABG Oxyhemoglobin ABG Sodium ABG Chloride ABG Glucose Oxyhemoglobin 93.9 L Sodium Potassium Chloride Carbon Dioxide BUN Creatinine Glucose 195 H POC Glucose Lactic Acid Calcium Phosphorus Magnesium AST ALT Lactate Dehydrogenase Total Bilirubin Direct Bilirubin CK-MB (CK-2) 4.3 H C-Reactive Protein NT-Pro-B Natriuret Pep 1181 H Total Protein Albumin Arterial Blood Glucose Urine WBC (Auto) Urine Creatinine Digoxin 11/24/19 11/24/19 11/24/19 04:53 04:53 10:37 WBC RBC Hgb Hct MCHC RDW MCV MCH Lymph % (Auto) [place] % (Auto) [place] # Eos # Lymph # (Auto) [place] # (Auto) Eos # (Auto) Seg Neutrophils % Seg Neuts % (Manual) Baso # (Auto) Lymphocytes % (Manual) Monocytes % (Manual) Eosinophils % (Manual) Basophils % (Manual) Seg Neutrophils # Seg Neutrophils # Man Lymphocytes # (Manual) Monocytes # (Manual) Eosinophils # (Manual) Nucleated RBC % Basophils # (Manual) PT INR APTT Heparin Anti-Xa Level ABG pH POC ABG pO2 ABG pO2 ABG HCO3 ABG O2 Saturation ABG Base Excess POC ABG pCO2 ABG Hemoglobin ABG Oxyhemoglobin ABG Sodium ABG Chloride ABG Glucose Oxyhemoglobin Sodium Potassium Chloride Carbon Dioxide BUN Creatinine Glucose 162 H POC Glucose Lactic Acid 2.40 H* 2.50 H* Calcium Phosphorus Magnesium AST ALT Lactate Dehydrogenase 240 H Total Bilirubin Direct Bilirubin CK-MB (CK-2) C-Reactive Protein NT-Pro-B Natriuret Pep Total Protein Albumin Arterial Blood Glucose Urine WBC (Auto) Urine Creatinine Digoxin 11/24/19 11/24/19 11/24/19 12:21 14:50 19:54 WBC RBC Hgb Hct MCHC RDW MCV MCH Lymph % (Auto) [place] % (Auto) [place] # Eos # Lymph # (Auto) [place] # (Auto) Eos # (Auto) Seg Neutrophils % Seg Neuts % (Manual) Baso # (Auto) Lymphocytes % (Manual) Monocytes % (Manual) Eosinophils % (Manual) Basophils % (Manual) Seg Neutrophils # Seg Neutrophils # Man Lymphocytes # (Manual) Monocytes # (Manual) Eosinophils # (Manual) Nucleated RBC % Basophils # (Manual) PT INR APTT Heparin Anti-Xa Level ABG pH POC ABG pO2 ABG pO2 ABG HCO3 ABG O2 Saturation ABG Base Excess POC ABG pCO2 ABG Hemoglobin ABG Oxyhemoglobin ABG Sodium ABG Chloride ABG Glucose Oxyhemoglobin Sodium Potassium Chloride Carbon Dioxide BUN Creatinine Glucose POC Glucose 145 H 143 H 124 H Lactic Acid Calcium Phosphorus Magnesium AST ALT Lactate Dehydrogenase Total Bilirubin Direct Bilirubin CK-MB (CK-2) C-Reactive Protein NT-Pro-B Natriuret Pep Total Protein Albumin Arterial Blood Glucose Urine WBC (Auto) Urine Creatinine Digoxin 11/25/19 11/25/19 11/25/19 00:18 03:18 05:11 WBC 13.7 H RBC Hgb Hct MCHC RDW 17.1 H MCV MCH Lymph % (Auto) 10.8 L [place] % (Auto) 8.7 H [place] # 1.2 H Eos # Lymph # (Auto) [place] # (Auto) Eos # (Auto) Seg Neutrophils % 80.2 H Seg Neuts % (Manual) Baso # (Auto) Lymphocytes % (Manual) Monocytes % (Manual) Eosinophils % (Manual) Basophils % (Manual) Seg Neutrophils # 11.0 H Seg Neutrophils # Man Lymphocytes # (Manual) Monocytes # (Manual) Eosinophils # (Manual) Nucleated RBC % Basophils # (Manual) PT INR APTT Heparin Anti-Xa Level ABG pH 7.333 L POC ABG pO2 ABG pO2 61.2 L ABG HCO3 ABG O2 Saturation 90.2 L ABG Base Excess POC ABG pCO2 ABG Hemoglobin 13.7 L ABG Oxyhemoglobin ABG Sodium ABG Chloride ABG Glucose Oxyhemoglobin 88.2 L Sodium Potassium Chloride Carbon Dioxide BUN Creatinine Glucose POC Glucose 109 H Lactic Acid Calcium Phosphorus Magnesium AST ALT Lactate Dehydrogenase Total Bilirubin Direct Bilirubin CK-MB (CK-2) C-Reactive Protein NT-Pro-B Natriuret Pep Total Protein Albumin Arterial Blood Glucose Urine WBC (Auto) Urine Creatinine Digoxin 11/25/19 11/25/19 11/26/19 05:11 11:40 03:12 WBC RBC Hgb Hct MCHC RDW MCV MCH Lymph % (Auto) [place] % (Auto) [place] # Eos # Lymph # (Auto) [place] # (Auto) Eos # (Auto) Seg Neutrophils % Seg Neuts % (Manual) Baso # (Auto) Lymphocytes % (Manual) Monocytes % (Manual) Eosinophils % (Manual) Basophils % (Manual) Seg Neutrophils # Seg Neutrophils # Man Lymphocytes # (Manual) Monocytes # (Manual) Eosinophils # (Manual) Nucleated RBC % Basophils # (Manual) PT INR APTT Heparin Anti-Xa Level ABG pH POC ABG pO2 ABG pO2 155.1 H ABG HCO3 27.8 H ABG O2 Saturation ABG Base Excess POC ABG pCO2 ABG Hemoglobin 12.2 L ABG Oxyhemoglobin ABG Sodium ABG Chloride ABG Glucose Oxyhemoglobin Sodium Potassium Chloride Carbon Dioxide BUN 23 H Creatinine Glucose 110 H POC Glucose 108 H Lactic Acid Calcium Phosphorus Magnesium AST ALT Lactate Dehydrogenase Total Bilirubin Direct Bilirubin CK-MB (CK-2) C-Reactive Protein NT-Pro-B Natriuret Pep Total Protein Albumin Arterial Blood Glucose Urine WBC (Auto) Urine Creatinine Digoxin 11/26/19 11/26/19 11/26/19 06:17 10:43 10:43 WBC 11.4 H RBC Hgb Hct MCHC RDW 17.1 H MCV MCH Lymph % (Auto) [place] % (Auto) [place] # Eos # Lymph # (Auto) [place] # (Auto) Eos # (Auto) Seg Neutrophils % Seg Neuts % (Manual) Baso # (Auto) Lymphocytes % (Manual) Monocytes % (Manual) Eosinophils % (Manual) Basophils % (Manual) Seg Neutrophils # Seg Neutrophils # Man Lymphocytes # (Manual) Monocytes # (Manual) Eosinophils # (Manual) Nucleated RBC % Basophils # (Manual) PT INR APTT Heparin Anti-Xa Level ABG pH POC ABG pO2 ABG pO2 ABG HCO3 ABG O2 Saturation ABG Base Excess POC ABG pCO2 ABG Hemoglobin ABG Oxyhemoglobin ABG Sodium ABG Chloride ABG Glucose Oxyhemoglobin Sodium Potassium Chloride Carbon Dioxide BUN 29 H Creatinine Glucose POC Glucose 107 H Lactic Acid Calcium Phosphorus Magnesium AST ALT Lactate Dehydrogenase Total Bilirubin Direct Bilirubin CK-MB (CK-2) C-Reactive Protein NT-Pro-B Natriuret Pep Total Protein Albumin Arterial Blood Glucose Urine WBC (Auto) Urine Creatinine Digoxin 11/26/19 11/27/19 11/27/19 17:11 01:53 04:11 WBC RBC Hgb Hct MCHC RDW MCV MCH Lymph % (Auto) [place] % (Auto) [place] # Eos # Lymph # (Auto) [place] # (Auto) Eos # (Auto) Seg Neutrophils % Seg Neuts % (Manual) Baso # (Auto) Lymphocytes % (Manual) Monocytes % (Manual) Eosinophils % (Manual) Basophils % (Manual) Seg Neutrophils # Seg Neutrophils # Man Lymphocytes # (Manual) Monocytes # (Manual) Eosinophils # (Manual) Nucleated RBC % Basophils # (Manual) PT INR APTT Heparin Anti-Xa Level ABG pH POC ABG pO2 ABG pO2 ABG HCO3 29.2 H ABG O2 Saturation ABG Base Excess 3.4 H POC ABG pCO2 ABG Hemoglobin 13.3 L ABG Oxyhemoglobin ABG Sodium ABG Chloride ABG Glucose Oxyhemoglobin 94.5 L Sodium Potassium Chloride Carbon Dioxide BUN Creatinine Glucose POC Glucose 113 H 108 H Lactic Acid Calcium Phosphorus Magnesium AST ALT Lactate Dehydrogenase Total Bilirubin Direct Bilirubin CK-MB (CK-2) C-Reactive Protein NT-Pro-B Natriuret Pep Total Protein Albumin Arterial Blood Glucose Urine WBC (Auto) Urine Creatinine Digoxin 11/27/19 11/28/19 11/28/19 05:27 05:00 05:25 WBC RBC Hgb Hct MCHC RDW MCV MCH Lymph % (Auto) [place] % (Auto) [place] # Eos # Lymph # (Auto) [place] # (Auto) Eos # (Auto) Seg Neutrophils % Seg Neuts % (Manual) Baso # (Auto) Lymphocytes % (Manual) Monocytes % (Manual) Eosinophils % (Manual) Basophils % (Manual) Seg Neutrophils # Seg Neutrophils # Man Lymphocytes # (Manual) Monocytes # (Manual) Eosinophils # (Manual) Nucleated RBC % Basophils # (Manual) PT INR APTT Heparin Anti-Xa Level ABG pH POC ABG pO2 68.1 L ABG pO2 ABG HCO3 ABG O2 Saturation ABG Base Excess POC ABG pCO2 ABG Hemoglobin ABG Oxyhemoglobin 91.2 L ABG Sodium ABG Chloride ABG Glucose Oxyhemoglobin Sodium Potassium Chloride Carbon Dioxide BUN Creatinine Glucose POC Glucose 111 H 110 H Lactic Acid Calcium Phosphorus Magnesium AST ALT Lactate Dehydrogenase Total Bilirubin Direct Bilirubin CK-MB (CK-2) C-Reactive Protein NT-Pro-B Natriuret Pep Total Protein Albumin Arterial Blood Glucose Urine WBC (Auto) Urine Creatinine Digoxin 11/28/19 11/28/19 11/28/19 12:08 13:47 13:47 WBC 11.3 H RBC Hgb Hct MCHC RDW 16.1 H MCV MCH Lymph % (Auto) [place] % (Auto) 9.9 H [place] # 1.1 H Eos # Lymph # (Auto) [place] # (Auto) Eos # (Auto) Seg Neutrophils % 71.4 H Seg Neuts % (Manual) Baso # (Auto) Lymphocytes % (Manual) Monocytes % (Manual) Eosinophils % (Manual) Basophils % (Manual) Seg Neutrophils # 8.1 H Seg Neutrophils # Man Lymphocytes # (Manual) Monocytes # (Manual) Eosinophils # (Manual) Nucleated RBC % Basophils # (Manual) PT INR APTT Heparin Anti-Xa Level ABG pH POC ABG pO2 ABG pO2 ABG HCO3 ABG O2 Saturation ABG Base Excess POC ABG pCO2 ABG Hemoglobin ABG Oxyhemoglobin ABG Sodium ABG Chloride ABG Glucose Oxyhemoglobin Sodium Potassium Chloride Carbon Dioxide BUN 23 H Creatinine Glucose 123 H POC Glucose 112 H Lactic Acid Calcium Phosphorus Magnesium AST ALT Lactate Dehydrogenase Total Bilirubin Direct Bilirubin CK-MB (CK-2) C-Reactive Protein NT-Pro-B Natriuret Pep Total Protein Albumin 3.7 L Arterial Blood Glucose Urine WBC (Auto) Urine Creatinine Digoxin 11/28/19 11/29/19 11/29/19 17:26 03:55 17:04 WBC RBC Hgb Hct MCHC RDW MCV MCH Lymph % (Auto) [place] % (Auto) [place] # Eos # Lymph # (Auto) [place] # (Auto) Eos # (Auto) Seg Neutrophils % Seg Neuts % (Manual) Baso # (Auto) Lymphocytes % (Manual) Monocytes % (Manual) Eosinophils % (Manual) Basophils % (Manual) Seg Neutrophils # Seg Neutrophils # Man Lymphocytes # (Manual) Monocytes # (Manual) Eosinophils # (Manual) Nucleated RBC % Basophils # (Manual) PT INR APTT Heparin Anti-Xa Level ABG pH POC ABG pO2 ABG pO2 65.7 L ABG HCO3 28.3 H ABG O2 Saturation 93.9 L ABG Base Excess 3.6 H POC ABG pCO2 ABG Hemoglobin 13.3 L ABG Oxyhemoglobin ABG Sodium ABG Chloride ABG Glucose Oxyhemoglobin 91.5 L Sodium Potassium Chloride Carbon Dioxide BUN Creatinine Glucose POC Glucose 123 H 119 H Lactic Acid Calcium Phosphorus Magnesium AST ALT Lactate Dehydrogenase Total Bilirubin Direct Bilirubin CK-MB (CK-2) C-Reactive Protein NT-Pro-B Natriuret Pep Total Protein Albumin Arterial Blood Glucose Urine WBC (Auto) Urine Creatinine Digoxin 11/30/19 11/30/19 11/30/19 04:17 04:17 04:56 WBC 13.4 H RBC Hgb Hct MCHC RDW 15.6 H MCV MCH Lymph % (Auto) [place] % (Auto) [place] # Eos # Lymph # (Auto) [place] # (Auto) Eos # (Auto) Seg Neutrophils % Seg Neuts % (Manual) Baso # (Auto) Lymphocytes % (Manual) Monocytes % (Manual) Eosinophils % (Manual) Basophils % (Manual) Seg Neutrophils # Seg Neutrophils # Man Lymphocytes # (Manual) Monocytes # (Manual) Eosinophils # (Manual) Nucleated RBC % Basophils # (Manual) PT INR APTT Heparin Anti-Xa Level ABG pH POC ABG pO2 ABG pO2 56.3 L ABG HCO3 29.3 H ABG O2 Saturation 91.5 L ABG Base Excess 4.7 H POC ABG pCO2 ABG Hemoglobin 12.1 L ABG Oxyhemoglobin ABG Sodium ABG Chloride ABG Glucose Oxyhemoglobin 89.2 L Sodium 147 H Potassium Chloride Carbon Dioxide BUN 30 H Creatinine Glucose 124 H POC Glucose Lactic Acid Calcium Phosphorus Magnesium AST ALT Lactate Dehydrogenase Total Bilirubin Direct Bilirubin CK-MB (CK-2) C-Reactive Protein NT-Pro-B Natriuret Pep Total Protein Albumin 3.8 L Arterial Blood Glucose Urine WBC (Auto) Urine Creatinine Digoxin 11/30/19 11/30/19 11/30/19 05:51 11:54 18:17 WBC RBC Hgb Hct MCHC RDW MCV MCH Lymph % (Auto) [place] % (Auto) [place] # Eos # Lymph # (Auto) [place] # (Auto) Eos # (Auto) Seg Neutrophils % Seg Neuts % (Manual) Baso # (Auto) Lymphocytes % (Manual) Monocytes % (Manual) Eosinophils % (Manual) Basophils % (Manual) Seg Neutrophils # Seg Neutrophils # Man Lymphocytes # (Manual) Monocytes # (Manual) Eosinophils # (Manual) Nucleated RBC % Basophils # (Manual) PT INR APTT Heparin Anti-Xa Level ABG pH POC ABG pO2 ABG pO2 ABG HCO3 ABG O2 Saturation ABG Base Excess POC ABG pCO2 ABG Hemoglobin ABG Oxyhemoglobin ABG Sodium ABG Chloride ABG Glucose Oxyhemoglobin Sodium Potassium Chloride Carbon Dioxide BUN Creatinine Glucose POC Glucose 127 H 115 H 143 H Lactic Acid Calcium Phosphorus Magnesium AST ALT Lactate Dehydrogenase Total Bilirubin Direct Bilirubin CK-MB (CK-2) C-Reactive Protein NT-Pro-B Natriuret Pep Total Protein Albumin Arterial Blood Glucose Urine WBC (Auto) Urine Creatinine Digoxin 12/01/19 12/01/19 12/01/19 01:18 05:22 12:16 WBC RBC Hgb Hct MCHC RDW MCV MCH Lymph % (Auto) [place] % (Auto) [place] # Eos # Lymph # (Auto) [place] # (Auto) Eos # (Auto) Seg Neutrophils % Seg Neuts % (Manual) Baso # (Auto) Lymphocytes % (Manual) Monocytes % (Manual) Eosinophils % (Manual) Basophils % (Manual) Seg Neutrophils # Seg Neutrophils # Man Lymphocytes # (Manual) Monocytes # (Manual) Eosinophils # (Manual) Nucleated RBC % Basophils # (Manual) PT INR APTT Heparin Anti-Xa Level ABG pH POC ABG pO2 ABG pO2 ABG HCO3 ABG O2 Saturation ABG Base Excess POC ABG pCO2 ABG Hemoglobin ABG Oxyhemoglobin ABG Sodium ABG Chloride ABG Glucose Oxyhemoglobin Sodium Potassium 3.5 L Chloride 107.8 H Carbon Dioxide BUN 37 H Creatinine Glucose 157 H POC Glucose 118 H 148 H Lactic Acid Calcium 8.2 L D Phosphorus Magnesium AST 48 H ALT 60 H Lactate Dehydrogenase 194 H Total Bilirubin Direct Bilirubin CK-MB (CK-2) C-Reactive Protein 8.50 H NT-Pro-B Natriuret Pep Total Protein 5.5 L Albumin 2.8 L Arterial Blood Glucose Urine WBC (Auto) Urine Creatinine Digoxin 12/01/19 12/02/19 12/02/19 18:04 00:05 05:16 WBC 11.4 H RBC Hgb Hct MCHC RDW 15.9 H MCV MCH Lymph % (Auto) [place] % (Auto) 9.9 H [place] # 1.1 H Eos # Lymph # (Auto) [place] # (Auto) Eos # (Auto) Seg Neutrophils % 70.3 H Seg Neuts % (Manual) Baso # (Auto) Lymphocytes % (Manual) Monocytes % (Manual) Eosinophils % (Manual) Basophils % (Manual) Seg Neutrophils # 8.0 H Seg Neutrophils # Man Lymphocytes # (Manual) Monocytes # (Manual) Eosinophils # (Manual) Nucleated RBC % Basophils # (Manual) PT INR APTT Heparin Anti-Xa Level ABG pH POC ABG pO2 ABG pO2 ABG HCO3 ABG O2 Saturation ABG Base Excess POC ABG pCO2 ABG Hemoglobin ABG Oxyhemoglobin ABG Sodium ABG Chloride ABG Glucose Oxyhemoglobin Sodium Potassium Chloride Carbon Dioxide BUN Creatinine Glucose POC Glucose 143 H 107 H Lactic Acid Calcium Phosphorus Magnesium AST ALT Lactate Dehydrogenase Total Bilirubin Direct Bilirubin CK-MB (CK-2) C-Reactive Protein NT-Pro-B Natriuret Pep Total Protein Albumin Arterial Blood Glucose Urine WBC (Auto) Urine Creatinine Digoxin 12/02/19 12/02/19 12/02/19 05:16 06:03 11:52 WBC RBC Hgb Hct MCHC RDW MCV MCH Lymph % (Auto) [place] % (Auto) [place] # Eos # Lymph # (Auto) [place] # (Auto) Eos # (Auto) Seg Neutrophils % Seg Neuts % (Manual) Baso # (Auto) Lymphocytes % (Manual) Monocytes % (Manual) Eosinophils % (Manual) Basophils % (Manual) Seg Neutrophils # Seg Neutrophils # Man Lymphocytes # (Manual) Monocytes # (Manual) Eosinophils # (Manual) Nucleated RBC % Basophils # (Manual) PT INR APTT Heparin Anti-Xa Level ABG pH POC ABG pO2 ABG pO2 ABG HCO3 ABG O2 Saturation ABG Base Excess POC ABG pCO2 ABG Hemoglobin ABG Oxyhemoglobin ABG Sodium ABG Chloride ABG Glucose Oxyhemoglobin Sodium 146 H Potassium Chloride Carbon Dioxide BUN 28 H Creatinine Glucose 123 H POC Glucose 110 H 152 H Lactic Acid Calcium Phosphorus Magnesium AST ALT Lactate Dehydrogenase Total Bilirubin Direct Bilirubin CK-MB (CK-2) C-Reactive Protein NT-Pro-B Natriuret Pep Total Protein Albumin Arterial Blood Glucose Urine WBC (Auto) Urine Creatinine Digoxin 12/02/19 12/02/19 12/02/19 12:58 17:58 23:36 WBC RBC Hgb Hct MCHC RDW MCV MCH Lymph % (Auto) [place] % (Auto) [place] # Eos # Lymph # (Auto) [place] # (Auto) Eos # (Auto) Seg Neutrophils % Seg Neuts % (Manual) Baso # (Auto) Lymphocytes % (Manual) Monocytes % (Manual) Eosinophils % (Manual) Basophils % (Manual) Seg Neutrophils # Seg Neutrophils # Man Lymphocytes # (Manual) Monocytes # (Manual) Eosinophils # (Manual) Nucleated RBC % Basophils # (Manual) PT INR APTT Heparin Anti-Xa Level ABG pH POC ABG pO2 78.1 L ABG pO2 ABG HCO3 ABG O2 Saturation ABG Base Excess POC ABG pCO2 ABG Hemoglobin ABG Oxyhemoglobin ABG Sodium ABG Chloride ABG Glucose Oxyhemoglobin Sodium Potassium Chloride Carbon Dioxide BUN Creatinine Glucose POC Glucose 120 H 123 H Lactic Acid Calcium Phosphorus Magnesium AST ALT Lactate Dehydrogenase Total Bilirubin Direct Bilirubin CK-MB (CK-2) C-Reactive Protein NT-Pro-B Natriuret Pep Total Protein Albumin Arterial Blood Glucose Urine WBC (Auto) Urine Creatinine Digoxin 12/03/19 12/03/19 12/03/19 06:03 06:14 11:46 WBC RBC Hgb Hct MCHC RDW MCV MCH Lymph % (Auto) [place] % (Auto) [place] # Eos # Lymph # (Auto) [place] # (Auto) Eos # (Auto) Seg Neutrophils % Seg Neuts % (Manual) Baso # (Auto) Lymphocytes % (Manual) Monocytes % (Manual) Eosinophils % (Manual) Basophils % (Manual) Seg Neutrophils # Seg Neutrophils # Man Lymphocytes # (Manual) Monocytes # (Manual) Eosinophils # (Manual) Nucleated RBC % Basophils # (Manual) PT INR APTT Heparin Anti-Xa Level ABG pH POC ABG pO2 ABG pO2 ABG HCO3 ABG O2 Saturation ABG Base Excess POC ABG pCO2 ABG Hemoglobin ABG Oxyhemoglobin ABG Sodium ABG Chloride ABG Glucose Oxyhemoglobin Sodium Potassium Chloride Carbon Dioxide BUN Creatinine Glucose POC Glucose 142 H 130 H Lactic Acid Calcium Phosphorus Magnesium AST ALT Lactate Dehydrogenase Total Bilirubin Direct Bilirubin CK-MB (CK-2) C-Reactive Protein NT-Pro-B Natriuret Pep Total Protein Albumin Arterial Blood Glucose Urine WBC (Auto) 8.0 H Urine Creatinine Digoxin 12/03/19 12/03/19 12/04/19 15:50 17:39 00:04 WBC RBC Hgb Hct MCHC RDW MCV MCH Lymph % (Auto) [place] % (Auto) [place] # Eos # Lymph # (Auto) [place] # (Auto) Eos # (Auto) Seg Neutrophils % Seg Neuts % (Manual) Baso # (Auto) Lymphocytes % (Manual) Monocytes % (Manual) Eosinophils % (Manual) Basophils % (Manual) Seg Neutrophils # Seg Neutrophils # Man Lymphocytes # (Manual) Monocytes # (Manual) Eosinophils # (Manual) Nucleated RBC % Basophils # (Manual) PT INR APTT Heparin Anti-Xa Level ABG pH POC ABG pO2 ABG pO2 ABG HCO3 ABG O2 Saturation ABG Base Excess POC ABG pCO2 ABG Hemoglobin ABG Oxyhemoglobin ABG Sodium ABG Chloride ABG Glucose Oxyhemoglobin Sodium Potassium Chloride Carbon Dioxide BUN Creatinine Glucose POC Glucose 146 H 133 H Lactic Acid Calcium Phosphorus 2.40 L Magnesium AST ALT Lactate Dehydrogenase Total Bilirubin Direct Bilirubin CK-MB (CK-2) C-Reactive Protein NT-Pro-B Natriuret Pep Total Protein Albumin Arterial Blood Glucose Urine WBC (Auto) Urine Creatinine Digoxin 12/04/19 12/04/19 12/04/19 03:58 03:58 05:22 WBC 12.5 H RBC Hgb 11.2 L Hct 35.2 L MCHC RDW 16.0 H MCV MCH Lymph % (Auto) [place] % (Auto) 9.6 H [place] # 1.2 H Eos # 0.5 H Lymph # (Auto) [place] # (Auto) Eos # (Auto) Seg Neutrophils % Seg Neuts % (Manual) Baso # (Auto) Lymphocytes % (Manual) Monocytes % (Manual) Eosinophils % (Manual) Basophils % (Manual) Seg Neutrophils # 8.6 H Seg Neutrophils # Man Lymphocytes # (Manual) Monocytes # (Manual) Eosinophils # (Manual) Nucleated RBC % Basophils # (Manual) PT INR APTT Heparin Anti-Xa Level ABG pH POC ABG pO2 ABG pO2 ABG HCO3 ABG O2 Saturation ABG Base Excess POC ABG pCO2 ABG Hemoglobin ABG Oxyhemoglobin ABG Sodium ABG Chloride ABG Glucose Oxyhemoglobin Sodium 146 H Potassium Chloride 108.6 H Carbon Dioxide BUN 30 H Creatinine 0.7 L Glucose 121 H POC Glucose 132 H Lactic Acid Calcium Phosphorus Magnesium AST ALT Lactate Dehydrogenase Total Bilirubin Direct Bilirubin CK-MB (CK-2) C-Reactive Protein NT-Pro-B Natriuret Pep Total Protein Albumin Arterial Blood Glucose Urine WBC (Auto) Urine Creatinine Digoxin 12/04/19 12/04/19 12/05/19 13:26 18:43 00:19 WBC RBC Hgb Hct MCHC RDW MCV MCH Lymph % (Auto) [place] % (Auto) [place] # Eos # Lymph # (Auto) [place] # (Auto) Eos # (Auto) Seg Neutrophils % Seg Neuts % (Manual) Baso # (Auto) Lymphocytes % (Manual) Monocytes % (Manual) Eosinophils % (Manual) Basophils % (Manual) Seg Neutrophils # Seg Neutrophils # Man Lymphocytes # (Manual) Monocytes # (Manual) Eosinophils # (Manual) Nucleated RBC % Basophils # (Manual) PT INR APTT Heparin Anti-Xa Level ABG pH POC ABG pO2 ABG pO2 ABG HCO3 ABG O2 Saturation ABG Base Excess POC ABG pCO2 ABG Hemoglobin ABG Oxyhemoglobin ABG Sodium ABG Chloride ABG Glucose Oxyhemoglobin Sodium Potassium Chloride Carbon Dioxide BUN Creatinine Glucose POC Glucose 185 H 156 H 150 H Lactic Acid Calcium Phosphorus Magnesium AST ALT Lactate Dehydrogenase Total Bilirubin Direct Bilirubin CK-MB (CK-2) C-Reactive Protein NT-Pro-B Natriuret Pep Total Protein Albumin Arterial Blood Glucose Urine WBC (Auto) Urine Creatinine Digoxin 12/05/19 12/05/19 12/05/19 03:37 03:37 05:14 WBC 16.3 H RBC Hgb 11.4 L Hct MCHC RDW 15.6 H MCV MCH Lymph % (Auto) 9.9 L [place] % (Auto) 9.7 H [place] # 1.6 H Eos # Lymph # (Auto) [place] # (Auto) Eos # (Auto) Seg Neutrophils % 78.0 H Seg Neuts % (Manual) Baso # (Auto) Lymphocytes % (Manual) Monocytes % (Manual) Eosinophils % (Manual) Basophils % (Manual) Seg Neutrophils # 12.7 H Seg Neutrophils # Man Lymphocytes # (Manual) Monocytes # (Manual) Eosinophils # (Manual) Nucleated RBC % Basophils # (Manual) PT INR APTT Heparin Anti-Xa Level ABG pH POC ABG pO2 ABG pO2 ABG HCO3 ABG O2 Saturation ABG Base Excess POC ABG pCO2 ABG Hemoglobin ABG Oxyhemoglobin ABG Sodium ABG Chloride ABG Glucose Oxyhemoglobin Sodium 146 H Potassium Chloride 107.2 H Carbon Dioxide BUN 27 H Creatinine 0.7 L Glucose 171 H POC Glucose 168 H Lactic Acid Calcium Phosphorus Magnesium AST ALT Lactate Dehydrogenase Total Bilirubin Direct Bilirubin CK-MB (CK-2) C-Reactive Protein NT-Pro-B Natriuret Pep Total Protein Albumin Arterial Blood Glucose Urine WBC (Auto) Urine Creatinine Digoxin 12/05/19 12/05/19 12/05/19 12:31 18:10 23:58 WBC RBC Hgb Hct MCHC RDW MCV MCH Lymph % (Auto) [place] % (Auto) [place] # Eos # Lymph # (Auto) [place] # (Auto) Eos # (Auto) Seg Neutrophils % Seg Neuts % (Manual) Baso # (Auto) Lymphocytes % (Manual) Monocytes % (Manual) Eosinophils % (Manual) Basophils % (Manual) Seg Neutrophils # Seg Neutrophils # Man Lymphocytes # (Manual) Monocytes # (Manual) Eosinophils # (Manual) Nucleated RBC % Basophils # (Manual) PT INR APTT Heparin Anti-Xa Level ABG pH POC ABG pO2 ABG pO2 ABG HCO3 ABG O2 Saturation ABG Base Excess POC ABG pCO2 ABG Hemoglobin ABG Oxyhemoglobin ABG Sodium ABG Chloride ABG Glucose Oxyhemoglobin Sodium Potassium Chloride Carbon Dioxide BUN Creatinine Glucose POC Glucose 159 H 198 H 115 H Lactic Acid Calcium Phosphorus Magnesium AST ALT Lactate Dehydrogenase Total Bilirubin Direct Bilirubin CK-MB (CK-2) C-Reactive Protein NT-Pro-B Natriuret Pep Total Protein Albumin Arterial Blood Glucose Urine WBC (Auto) Urine Creatinine Digoxin 12/06/19 12/06/19 12/06/19 05:24 05:24 05:25 WBC 14.9 H RBC Hgb 10.8 L Hct 34.0 L MCHC RDW 15.6 H MCV MCH Lymph % (Auto) 10.7 L [place] % (Auto) 8.3 H [place] # 1.2 H Eos # Lymph # (Auto) [place] # (Auto) Eos # (Auto) Seg Neutrophils % 78.7 H Seg Neuts % (Manual) Baso # (Auto) Lymphocytes % (Manual) Monocytes % (Manual) Eosinophils % (Manual) Basophils % (Manual) Seg Neutrophils # 11.7 H Seg Neutrophils # Man Lymphocytes # (Manual) Monocytes # (Manual) Eosinophils # (Manual) Nucleated RBC % Basophils # (Manual) PT INR APTT Heparin Anti-Xa Level ABG pH POC ABG pO2 ABG pO2 ABG HCO3 ABG O2 Saturation ABG Base Excess POC ABG pCO2 ABG Hemoglobin ABG Oxyhemoglobin ABG Sodium ABG Chloride ABG Glucose Oxyhemoglobin Sodium 148 H Potassium 5.1 H Chloride 107.6 H Carbon Dioxide BUN 27 H Creatinine 0.7 L Glucose 155 H POC Glucose 157 H Lactic Acid Calcium Phosphorus Magnesium AST ALT Lactate Dehydrogenase Total Bilirubin Direct Bilirubin CK-MB (CK-2) C-Reactive Protein NT-Pro-B Natriuret Pep Total Protein Albumin Arterial Blood Glucose Urine WBC (Auto) Urine Creatinine Digoxin 12/07/19 12/07/19 12/07/19 00:13 05:34 11:33 WBC RBC Hgb Hct MCHC RDW MCV MCH Lymph % (Auto) [place] % (Auto) [place] # Eos # Lymph # (Auto) [place] # (Auto) Eos # (Auto) Seg Neutrophils % Seg Neuts % (Manual) Baso # (Auto) Lymphocytes % (Manual) Monocytes % (Manual) Eosinophils % (Manual) Basophils % (Manual) Seg Neutrophils # Seg Neutrophils # Man Lymphocytes # (Manual) Monocytes # (Manual) Eosinophils # (Manual) Nucleated RBC % Basophils # (Manual) PT INR APTT Heparin Anti-Xa Level ABG pH POC ABG pO2 ABG pO2 ABG HCO3 ABG O2 Saturation ABG Base Excess POC ABG pCO2 ABG Hemoglobin ABG Oxyhemoglobin ABG Sodium ABG Chloride ABG Glucose Oxyhemoglobin Sodium Potassium Chloride Carbon Dioxide BUN Creatinine Glucose POC Glucose 142 H 111 H 169 H Lactic Acid Calcium Phosphorus Magnesium AST ALT Lactate Dehydrogenase Total Bilirubin Direct Bilirubin CK-MB (CK-2) C-Reactive Protein NT-Pro-B Natriuret Pep Total Protein Albumin Arterial Blood Glucose Urine WBC (Auto) Urine Creatinine Digoxin 12/07/19 12/07/19 12/07/19 12:41 13:25 18:19 WBC 12.4 H RBC 3.53 L Hgb 10.2 L Hct 32.1 L MCHC RDW 15.3 H MCV MCH Lymph % (Auto) 10.6 L [place] % (Auto) 7.8 H [place] # 1.0 H Eos # Lymph # (Auto) [place] # (Auto) Eos # (Auto) Seg Neutrophils % 77.6 H Seg Neuts % (Manual) Baso # (Auto) Lymphocytes % (Manual) Monocytes % (Manual) Eosinophils % (Manual) Basophils % (Manual) Seg Neutrophils # 9.6 H Seg Neutrophils # Man Lymphocytes # (Manual) Monocytes # (Manual) Eosinophils # (Manual) Nucleated RBC % Basophils # (Manual) PT INR APTT Heparin Anti-Xa Level ABG pH POC ABG pO2 ABG pO2 ABG HCO3 ABG O2 Saturation ABG Base Excess POC ABG pCO2 ABG Hemoglobin ABG Oxyhemoglobin ABG Sodium ABG Chloride ABG Glucose Oxyhemoglobin Sodium 149 H Potassium Chloride 108.4 H Carbon Dioxide BUN 26 H Creatinine 0.6 L Glucose 149 H POC Glucose 164 H Lactic Acid Calcium Phosphorus Magnesium 2.60 H AST 121 H ALT 145 H Lactate Dehydrogenase Total Bilirubin Direct Bilirubin CK-MB (CK-2) C-Reactive Protein NT-Pro-B Natriuret Pep Total Protein Albumin 2.6 L Arterial Blood Glucose Urine WBC (Auto) Urine Creatinine Digoxin 12/07/19 12/08/19 12/08/19 22:25 00:02 03:55 WBC 13.3 H RBC 3.40 L Hgb 9.7 L Hct 30.8 L MCHC 31 L RDW 15.5 H MCV MCH Lymph % (Auto) [place] % (Auto) 8.1 H [place] # 1.1 H Eos # Lymph # (Auto) [place] # (Auto) Eos # (Auto) Seg Neutrophils % 73.0 H Seg Neuts % (Manual) Baso # (Auto) Lymphocytes % (Manual) Monocytes % (Manual) Eosinophils % (Manual) Basophils % (Manual) Seg Neutrophils # 9.7 H Seg Neutrophils # Man Lymphocytes # (Manual) Monocytes # (Manual) Eosinophils # (Manual) Nucleated RBC % Basophils # (Manual) PT INR APTT Heparin Anti-Xa Level 0.12 L ABG pH POC ABG pO2 ABG pO2 ABG HCO3 ABG O2 Saturation ABG Base Excess POC ABG pCO2 ABG Hemoglobin ABG Oxyhemoglobin ABG Sodium ABG Chloride ABG Glucose Oxyhemoglobin Sodium Potassium Chloride Carbon Dioxide BUN Creatinine Glucose POC Glucose 151 H Lactic Acid Calcium Phosphorus Magnesium AST ALT Lactate Dehydrogenase Total Bilirubin Direct Bilirubin CK-MB (CK-2) C-Reactive Protein NT-Pro-B Natriuret Pep Total Protein Albumin Arterial Blood Glucose Urine WBC (Auto) Urine Creatinine Digoxin 12/08/19 12/08/19 12/08/19 03:55 05:21 06:01 WBC RBC Hgb Hct MCHC RDW MCV MCH Lymph % (Auto) [place] % (Auto) [place] # Eos # Lymph # (Auto) [place] # (Auto) Eos # (Auto) Seg Neutrophils % Seg Neuts % (Manual) Baso # (Auto) Lymphocytes % (Manual) Monocytes % (Manual) Eosinophils % (Manual) Basophils % (Manual) Seg Neutrophils # Seg Neutrophils # Man Lymphocytes # (Manual) Monocytes # (Manual) Eosinophils # (Manual) Nucleated RBC % Basophils # (Manual) PT INR APTT Heparin Anti-Xa Level 0.20 L ABG pH POC ABG pO2 ABG pO2 ABG HCO3 ABG O2 Saturation ABG Base Excess POC ABG pCO2 ABG Hemoglobin ABG Oxyhemoglobin ABG Sodium ABG Chloride ABG Glucose Oxyhemoglobin Sodium 149 H Potassium Chloride 108.0 H Carbon Dioxide BUN 28 H Creatinine 0.6 L Glucose 144 H POC Glucose 143 H Lactic Acid Calcium Phosphorus Magnesium AST 98 H ALT 145 H Lactate Dehydrogenase Total Bilirubin Direct Bilirubin CK-MB (CK-2) C-Reactive Protein NT-Pro-B Natriuret Pep Total Protein 6.0 L Albumin 2.4 L Arterial Blood Glucose Urine WBC (Auto) Urine Creatinine Digoxin 12/08/19 12/08/19 12/08/19 12:08 18:11 23:53 WBC RBC Hgb Hct MCHC RDW MCV MCH Lymph % (Auto) [place] % (Auto) [place] # Eos # Lymph # (Auto) [place] # (Auto) Eos # (Auto) Seg Neutrophils % Seg Neuts % (Manual) Baso # (Auto) Lymphocytes % (Manual) Monocytes % (Manual) Eosinophils % (Manual) Basophils % (Manual) Seg Neutrophils # Seg Neutrophils # Man Lymphocytes # (Manual) Monocytes # (Manual) Eosinophils # (Manual) Nucleated RBC % Basophils # (Manual) PT INR APTT Heparin Anti-Xa Level ABG pH POC ABG pO2 ABG pO2 ABG HCO3 ABG O2 Saturation ABG Base Excess POC ABG pCO2 ABG Hemoglobin ABG Oxyhemoglobin ABG Sodium ABG Chloride ABG Glucose Oxyhemoglobin Sodium Potassium Chloride Carbon Dioxide BUN Creatinine Glucose POC Glucose 172 H 122 H 162 H Lactic Acid Calcium Phosphorus Magnesium AST ALT Lactate Dehydrogenase Total Bilirubin Direct Bilirubin CK-MB (CK-2) C-Reactive Protein NT-Pro-B Natriuret Pep Total Protein Albumin Arterial Blood Glucose Urine WBC (Auto) Urine Creatinine Digoxin 12/09/19 12/09/19 12/09/19 04:03 04:03 05:53 WBC RBC Hgb 9.1 L Hct 28.9 L MCHC RDW MCV MCH Lymph % (Auto) [place] % (Auto) [place] # Eos # Lymph # (Auto) [place] # (Auto) Eos # (Auto) Seg Neutrophils % Seg Neuts % (Manual) Baso # (Auto) Lymphocytes % (Manual) Monocytes % (Manual) Eosinophils % (Manual) Basophils % (Manual) Seg Neutrophils # Seg Neutrophils # Man Lymphocytes # (Manual) Monocytes # (Manual) Eosinophils # (Manual) Nucleated RBC % Basophils # (Manual) PT INR APTT Heparin Anti-Xa Level 0.15 L ABG pH POC ABG pO2 ABG pO2 ABG HCO3 ABG O2 Saturation ABG Base Excess POC ABG pCO2 ABG Hemoglobin ABG Oxyhemoglobin ABG Sodium ABG Chloride ABG Glucose Oxyhemoglobin Sodium Potassium Chloride Carbon Dioxide BUN Creatinine Glucose POC Glucose 124 H Lactic Acid Calcium Phosphorus Magnesium AST ALT Lactate Dehydrogenase Total Bilirubin Direct Bilirubin CK-MB (CK-2) C-Reactive Protein NT-Pro-B Natriuret Pep Total Protein Albumin Arterial Blood Glucose Urine WBC (Auto) Urine Creatinine Digoxin 12/09/19 12/09/19 12/10/19 09:43 12:41 00:13 WBC RBC Hgb Hct MCHC RDW MCV MCH Lymph % (Auto) [place] % (Auto) [place] # Eos # Lymph # (Auto) [place] # (Auto) Eos # (Auto) Seg Neutrophils % Seg Neuts % (Manual) Baso # (Auto) Lymphocytes % (Manual) Monocytes % (Manual) Eosinophils % (Manual) Basophils % (Manual) Seg Neutrophils # Seg Neutrophils # Man Lymphocytes # (Manual) Monocytes # (Manual) Eosinophils # (Manual) Nucleated RBC % Basophils # (Manual) PT INR APTT Heparin Anti-Xa Level ABG pH POC ABG pO2 ABG pO2 ABG HCO3 ABG O2 Saturation ABG Base Excess POC ABG pCO2 ABG Hemoglobin ABG Oxyhemoglobin ABG Sodium ABG Chloride ABG Glucose Oxyhemoglobin Sodium Potassium Chloride Carbon Dioxide BUN 25 H Creatinine 0.6 L Glucose 131 H POC Glucose 109 H 120 H Lactic Acid Calcium Phosphorus Magnesium AST ALT Lactate Dehydrogenase Total Bilirubin Direct Bilirubin CK-MB (CK-2) C-Reactive Protein NT-Pro-B Natriuret Pep Total Protein Albumin Arterial Blood Glucose Urine WBC (Auto) Urine Creatinine Digoxin 12/10/19 12/10/19 12/10/19 04:14 04:14 12:00 WBC 13.3 H RBC 3.34 L Hgb 9.6 L Hct 30.4 L MCHC RDW 15.4 H MCV MCH Lymph % (Auto) [place] % (Auto) [place] # Eos # Lymph # (Auto) [place] # (Auto) Eos # (Auto) Seg Neutrophils % Seg Neuts % (Manual) 75.0 H Baso # (Auto) Lymphocytes % (Manual) 13.0 L Monocytes % (Manual) 8.0 H Eosinophils % (Manual) Basophils % (Manual) 2.0 H Seg Neutrophils # Seg Neutrophils # Man 10.0 H Lymphocytes # (Manual) Monocytes # (Manual) 1.1 H Eosinophils # (Manual) Nucleated RBC % Basophils # (Manual) 0.3 H PT INR APTT Heparin Anti-Xa Level ABG pH POC ABG pO2 ABG pO2 ABG HCO3 ABG O2 Saturation ABG Base Excess POC ABG pCO2 ABG Hemoglobin ABG Oxyhemoglobin ABG Sodium ABG Chloride ABG Glucose Oxyhemoglobin Sodium 147 H Potassium Chloride 108.3 H Carbon Dioxide BUN 21 H Creatinine 0.6 L Glucose 104 H POC Glucose 133 H Lactic Acid Calcium Phosphorus Magnesium AST ALT Lactate Dehydrogenase Total Bilirubin Direct Bilirubin CK-MB (CK-2) C-Reactive Protein NT-Pro-B Natriuret Pep Total Protein Albumin Arterial Blood Glucose Urine WBC (Auto) Urine Creatinine Digoxin 12/10/19 12/10/19 12/11/19 18:44 21:20 00:08 WBC 14.9 H RBC 3.36 L Hgb 9.6 L Hct 30.5 L MCHC RDW 15.4 H MCV MCH Lymph % (Auto) [place] % (Auto) [place] # Eos # Lymph # (Auto) [place] # (Auto) Eos # (Auto) Seg Neutrophils % Seg Neuts % (Manual) Baso # (Auto) Lymphocytes % (Manual) Monocytes % (Manual) Eosinophils % (Manual) Basophils % (Manual) Seg Neutrophils # Seg Neutrophils # Man Lymphocytes # (Manual) Monocytes # (Manual) Eosinophils # (Manual) Nucleated RBC % Basophils # (Manual) PT INR APTT Heparin Anti-Xa Level ABG pH POC ABG pO2 ABG pO2 ABG HCO3 ABG O2 Saturation ABG Base Excess POC ABG pCO2 ABG Hemoglobin ABG Oxyhemoglobin ABG Sodium ABG Chloride ABG Glucose Oxyhemoglobin Sodium Potassium Chloride Carbon Dioxide BUN Creatinine Glucose POC Glucose 119 H 134 H Lactic Acid Calcium Phosphorus Magnesium AST ALT Lactate Dehydrogenase Total Bilirubin Direct Bilirubin CK-MB (CK-2) C-Reactive Protein NT-Pro-B Natriuret Pep Total Protein Albumin Arterial Blood Glucose Urine WBC (Auto) Urine Creatinine Digoxin 12/11/19 12/11/19 12/11/19 03:54 07:28 08:36 WBC 11.9 H RBC 3.25 L Hgb 9.6 L Hct 29.2 L MCHC RDW 15.7 H MCV MCH Lymph % (Auto) [place] % (Auto) [place] # Eos # Lymph # (Auto) [place] # (Auto) Eos # (Auto) Seg Neutrophils % Seg Neuts % (Manual) Baso # (Auto) Lymphocytes % (Manual) Monocytes % (Manual) Eosinophils % (Manual) Basophils % (Manual) Seg Neutrophils # Seg Neutrophils # Man Lymphocytes # (Manual) Monocytes # (Manual) Eosinophils # (Manual) Nucleated RBC % Basophils # (Manual) PT INR APTT Heparin Anti-Xa Level 0.10 L 0.16 L ABG pH POC ABG pO2 ABG pO2 ABG HCO3 ABG O2 Saturation ABG Base Excess POC ABG pCO2 ABG Hemoglobin ABG Oxyhemoglobin ABG Sodium ABG Chloride ABG Glucose Oxyhemoglobin Sodium Potassium Chloride Carbon Dioxide BUN Creatinine Glucose POC Glucose Lactic Acid Calcium Phosphorus Magnesium AST ALT Lactate Dehydrogenase Total Bilirubin Direct Bilirubin CK-MB (CK-2) C-Reactive Protein NT-Pro-B Natriuret Pep Total Protein Albumin Arterial Blood Glucose Urine WBC (Auto) Urine Creatinine Digoxin 12/11/19 12/11/19 12/11/19 08:36 11:45 17:15 WBC RBC Hgb Hct MCHC RDW MCV MCH Lymph % (Auto) [place] % (Auto) [place] # Eos # Lymph # (Auto) [place] # (Auto) Eos # (Auto) Seg Neutrophils % Seg Neuts % (Manual) Baso # (Auto) Lymphocytes % (Manual) Monocytes % (Manual) Eosinophils % (Manual) Basophils % (Manual) Seg Neutrophils # Seg Neutrophils # Man Lymphocytes # (Manual) Monocytes # (Manual) Eosinophils # (Manual) Nucleated RBC % Basophils # (Manual) PT INR APTT Heparin Anti-Xa Level ABG pH POC ABG pO2 ABG pO2 ABG HCO3 ABG O2 Saturation ABG Base Excess POC ABG pCO2 ABG Hemoglobin ABG Oxyhemoglobin ABG Sodium ABG Chloride ABG Glucose Oxyhemoglobin Sodium Potassium Chloride Carbon Dioxide BUN Creatinine 0.5 L Glucose 128 H POC Glucose 136 H 109 H Lactic Acid Calcium Phosphorus Magnesium AST ALT Lactate Dehydrogenase Total Bilirubin Direct Bilirubin CK-MB (CK-2) C-Reactive Protein NT-Pro-B Natriuret Pep Total Protein Albumin Arterial Blood Glucose Urine WBC (Auto) Urine Creatinine Digoxin 12/12/19 12/12/19 12/12/19 00:03 05:53 05:53 WBC RBC Hgb 8.8 L Hct 27.6 L MCHC RDW MCV MCH Lymph % (Auto) [place] % (Auto) [place] # Eos # Lymph # (Auto) [place] # (Auto) Eos # (Auto) Seg Neutrophils % Seg Neuts % (Manual) Baso # (Auto) Lymphocytes % (Manual) Monocytes % (Manual) Eosinophils % (Manual) Basophils % (Manual) Seg Neutrophils # Seg Neutrophils # Man Lymphocytes # (Manual) Monocytes # (Manual) Eosinophils # (Manual) Nucleated RBC % Basophils # (Manual) PT INR APTT Heparin Anti-Xa Level 0.22 L ABG pH POC ABG pO2 ABG pO2 ABG HCO3 ABG O2 Saturation ABG Base Excess POC ABG pCO2 ABG Hemoglobin ABG Oxyhemoglobin ABG Sodium ABG Chloride ABG Glucose Oxyhemoglobin Sodium Potassium Chloride Carbon Dioxide BUN Creatinine Glucose POC Glucose 116 H Lactic Acid Calcium Phosphorus Magnesium AST ALT Lactate Dehydrogenase Total Bilirubin Direct Bilirubin CK-MB (CK-2) C-Reactive Protein NT-Pro-B Natriuret Pep Total Protein Albumin Arterial Blood Glucose Urine WBC (Auto) Urine Creatinine Digoxin 12/12/19 12/12/19 12/12/19 09:38 12:18 17:44 WBC RBC Hgb Hct MCHC RDW MCV MCH Lymph % (Auto) [place] % (Auto) [place] # Eos # Lymph # (Auto) [place] # (Auto) Eos # (Auto) Seg Neutrophils % Seg Neuts % (Manual) Baso # (Auto) Lymphocytes % (Manual) Monocytes % (Manual) Eosinophils % (Manual) Basophils % (Manual) Seg Neutrophils # Seg Neutrophils # Man Lymphocytes # (Manual) Monocytes # (Manual) Eosinophils # (Manual) Nucleated RBC % Basophils # (Manual) PT INR APTT Heparin Anti-Xa Level ABG pH POC ABG pO2 ABG pO2 ABG HCO3 ABG O2 Saturation ABG Base Excess POC ABG pCO2 ABG Hemoglobin ABG Oxyhemoglobin ABG Sodium ABG Chloride ABG Glucose Oxyhemoglobin Sodium Potassium Chloride Carbon Dioxide BUN Creatinine Glucose POC Glucose 115 H 146 H 146 H Lactic Acid Calcium Phosphorus Magnesium AST ALT Lactate Dehydrogenase Total Bilirubin Direct Bilirubin CK-MB (CK-2) C-Reactive Protein NT-Pro-B Natriuret Pep Total Protein Albumin Arterial Blood Glucose Urine WBC (Auto) Urine Creatinine Digoxin 12/12/19 12/13/19 12/13/19 23:33 05:32 05:32 WBC 13.1 H RBC 3.27 L Hgb 9.5 L Hct 29.3 L MCHC RDW 15.6 H MCV MCH Lymph % (Auto) [place] % (Auto) [place] # Eos # Lymph # (Auto) [place] # (Auto) Eos # (Auto) Seg Neutrophils % Seg Neuts % (Manual) 74.0 H Baso # (Auto) Lymphocytes % (Manual) 8.0 L Monocytes % (Manual) 9.0 H Eosinophils % (Manual) 5.0 H Basophils % (Manual) Seg Neutrophils # Seg Neutrophils # Man 9.7 H Lymphocytes # (Manual) 1.0 L Monocytes # (Manual) 1.2 H Eosinophils # (Manual) 0.7 H Nucleated RBC % Basophils # (Manual) PT INR APTT Heparin Anti-Xa Level 0.20 L ABG pH POC ABG pO2 ABG pO2 ABG HCO3 ABG O2 Saturation ABG Base Excess POC ABG pCO2 ABG Hemoglobin ABG Oxyhemoglobin ABG Sodium ABG Chloride ABG Glucose Oxyhemoglobin Sodium Potassium Chloride Carbon Dioxide BUN Creatinine Glucose POC Glucose 126 H Lactic Acid Calcium Phosphorus Magnesium AST ALT Lactate Dehydrogenase Total Bilirubin Direct Bilirubin CK-MB (CK-2) C-Reactive Protein NT-Pro-B Natriuret Pep Total Protein Albumin Arterial Blood Glucose Urine WBC (Auto) Urine Creatinine Digoxin 12/13/19 12/13/19 12/13/19 05:32 05:46 11:57 WBC RBC Hgb Hct MCHC RDW MCV MCH Lymph % (Auto) [place] % (Auto) [place] # Eos # Lymph # (Auto) [place] # (Auto) Eos # (Auto) Seg Neutrophils % Seg Neuts % (Manual) Baso # (Auto) Lymphocytes % (Manual) Monocytes % (Manual) Eosinophils % (Manual) Basophils % (Manual) Seg Neutrophils # Seg Neutrophils # Man Lymphocytes # (Manual) Monocytes # (Manual) Eosinophils # (Manual) Nucleated RBC % Basophils # (Manual) PT INR APTT Heparin Anti-Xa Level ABG pH POC ABG pO2 ABG pO2 ABG HCO3 ABG O2 Saturation ABG Base Excess POC ABG pCO2 ABG Hemoglobin ABG Oxyhemoglobin ABG Sodium ABG Chloride ABG Glucose Oxyhemoglobin Sodium Potassium Chloride Carbon Dioxide 31 H BUN Creatinine 0.6 L Glucose 114 H POC Glucose 118 H 133 H Lactic Acid Calcium Phosphorus Magnesium AST ALT Lactate Dehydrogenase Total Bilirubin Direct Bilirubin CK-MB (CK-2) C-Reactive Protein NT-Pro-B Natriuret Pep Total Protein Albumin Arterial Blood Glucose Urine WBC (Auto) Urine Creatinine Digoxin 12/13/19 12/13/19 12/14/19 17:44 23:46 05:32 WBC RBC Hgb Hct MCHC RDW MCV MCH Lymph % (Auto) [place] % (Auto) [place] # Eos # Lymph # (Auto) [place] # (Auto) Eos # (Auto) Seg Neutrophils % Seg Neuts % (Manual) Baso # (Auto) Lymphocytes % (Manual) Monocytes % (Manual) Eosinophils % (Manual) Basophils % (Manual) Seg Neutrophils # Seg Neutrophils # Man Lymphocytes # (Manual) Monocytes # (Manual) Eosinophils # (Manual) Nucleated RBC % Basophils # (Manual) PT INR APTT Heparin Anti-Xa Level ABG pH POC ABG pO2 ABG pO2 ABG HCO3 ABG O2 Saturation ABG Base Excess POC ABG pCO2 ABG Hemoglobin ABG Oxyhemoglobin ABG Sodium ABG Chloride ABG Glucose Oxyhemoglobin Sodium Potassium Chloride Carbon Dioxide BUN Creatinine Glucose POC Glucose 161 H 126 H 139 H Lactic Acid Calcium Phosphorus Magnesium AST ALT Lactate Dehydrogenase Total Bilirubin Direct Bilirubin CK-MB (CK-2) C-Reactive Protein NT-Pro-B Natriuret Pep Total Protein Albumin Arterial Blood Glucose Urine WBC (Auto) Urine Creatinine Digoxin 12/14/19 12/14/19 12/14/19 06:03 06:03 09:37 WBC RBC Hgb 9.6 L Hct 30.4 L MCHC RDW MCV MCH Lymph % (Auto) [place] % (Auto) [place] # Eos # Lymph # (Auto) [place] # (Auto) Eos # (Auto) Seg Neutrophils % Seg Neuts % (Manual) Baso # (Auto) Lymphocytes % (Manual) Monocytes % (Manual) Eosinophils % (Manual) Basophils % (Manual) Seg Neutrophils # Seg Neutrophils # Man Lymphocytes # (Manual) Monocytes # (Manual) Eosinophils # (Manual) Nucleated RBC % Basophils # (Manual) PT INR APTT Heparin Anti-Xa Level 0.24 L ABG pH POC ABG pO2 ABG pO2 ABG HCO3 ABG O2 Saturation ABG Base Excess POC ABG pCO2 ABG Hemoglobin ABG Oxyhemoglobin ABG Sodium ABG Chloride ABG Glucose Oxyhemoglobin Sodium Potassium Chloride Carbon Dioxide BUN Creatinine 0.6 L Glucose 162 H POC Glucose Lactic Acid Calcium Phosphorus Magnesium AST 71 H ALT 118 H Lactate Dehydrogenase Total Bilirubin Direct Bilirubin CK-MB (CK-2) C-Reactive Protein NT-Pro-B Natriuret Pep Total Protein 6.2 L Albumin 2.3 L Arterial Blood Glucose Urine WBC (Auto) Urine Creatinine Digoxin 12/14/19 12/14/19 12/15/19 12:06 18:18 00:19 WBC RBC Hgb Hct MCHC RDW MCV MCH Lymph % (Auto) [place] % (Auto) [place] # Eos # Lymph # (Auto) [place] # (Auto) Eos # (Auto) Seg Neutrophils % Seg Neuts % (Manual) Baso # (Auto) Lymphocytes % (Manual) Monocytes % (Manual) Eosinophils % (Manual) Basophils % (Manual) Seg Neutrophils # Seg Neutrophils # Man Lymphocytes # (Manual) Monocytes # (Manual) Eosinophils # (Manual) Nucleated RBC % Basophils # (Manual) PT INR APTT Heparin Anti-Xa Level ABG pH POC ABG pO2 ABG pO2 ABG HCO3 ABG O2 Saturation ABG Base Excess POC ABG pCO2 ABG Hemoglobin ABG Oxyhemoglobin ABG Sodium ABG Chloride ABG Glucose Oxyhemoglobin Sodium Potassium Chloride Carbon Dioxide BUN Creatinine Glucose POC Glucose 147 H 166 H 123 H Lactic Acid Calcium Phosphorus Magnesium AST ALT Lactate Dehydrogenase Total Bilirubin Direct Bilirubin CK-MB (CK-2) C-Reactive Protein NT-Pro-B Natriuret Pep Total Protein Albumin Arterial Blood Glucose Urine WBC (Auto) Urine Creatinine Digoxin 12/15/19 12/15/19 12/15/19 05:28 05:29 05:29 WBC 14.9 H RBC 3.19 L Hgb 9.1 L Hct 28.7 L MCHC RDW 16.0 H MCV MCH Lymph % (Auto) [place] % (Auto) [place] # Eos # Lymph # (Auto) [place] # (Auto) Eos # (Auto) Seg Neutrophils % Seg Neuts % (Manual) Baso # (Auto) Lymphocytes % (Manual) Monocytes % (Manual) Eosinophils % (Manual) Basophils % (Manual) Seg Neutrophils # Seg Neutrophils # Man Lymphocytes # (Manual) Monocytes # (Manual) Eosinophils # (Manual) Nucleated RBC % Basophils # (Manual) PT INR APTT Heparin Anti-Xa Level 0.19 L ABG pH POC ABG pO2 ABG pO2 ABG HCO3 ABG O2 Saturation ABG Base Excess POC ABG pCO2 ABG Hemoglobin ABG Oxyhemoglobin ABG Sodium ABG Chloride ABG Glucose Oxyhemoglobin Sodium Potassium Chloride Carbon Dioxide BUN Creatinine 0.6 L Glucose 110 H POC Glucose Lactic Acid Calcium Phosphorus Magnesium AST ALT Lactate Dehydrogenase Total Bilirubin Direct Bilirubin CK-MB (CK-2) C-Reactive Protein NT-Pro-B Natriuret Pep Total Protein Albumin Arterial Blood Glucose Urine WBC (Auto) Urine Creatinine Digoxin 12/15/19 12/15/19 12/15/19 05:53 11:50 17:26 WBC RBC Hgb Hct MCHC RDW MCV MCH Lymph % (Auto) [place] % (Auto) [place] # Eos # Lymph # (Auto) [place] # (Auto) Eos # (Auto) Seg Neutrophils % Seg Neuts % (Manual) Baso # (Auto) Lymphocytes % (Manual) Monocytes % (Manual) Eosinophils % (Manual) Basophils % (Manual) Seg Neutrophils # Seg Neutrophils # Man Lymphocytes # (Manual) Monocytes # (Manual) Eosinophils # (Manual) Nucleated RBC % Basophils # (Manual) PT INR APTT Heparin Anti-Xa Level ABG pH POC ABG pO2 ABG pO2 ABG HCO3 ABG O2 Saturation ABG Base Excess POC ABG pCO2 ABG Hemoglobin ABG Oxyhemoglobin ABG Sodium ABG Chloride ABG Glucose Oxyhemoglobin Sodium Potassium Chloride Carbon Dioxide BUN Creatinine Glucose POC Glucose 119 H 132 H 128 H Lactic Acid Calcium Phosphorus Magnesium AST ALT Lactate Dehydrogenase Total Bilirubin Direct Bilirubin CK-MB (CK-2) C-Reactive Protein NT-Pro-B Natriuret Pep Total Protein Albumin Arterial Blood Glucose Urine WBC (Auto) Urine Creatinine Digoxin 12/15/19 12/16/19 12/16/19 23:11 05:30 05:46 WBC RBC Hgb 8.8 L Hct 27.9 L MCHC RDW MCV MCH Lymph % (Auto) [place] % (Auto) [place] # Eos # Lymph # (Auto) [place] # (Auto) Eos # (Auto) Seg Neutrophils % Seg Neuts % (Manual) Baso # (Auto) Lymphocytes % (Manual) Monocytes % (Manual) Eosinophils % (Manual) Basophils % (Manual) Seg Neutrophils # Seg Neutrophils # Man Lymphocytes # (Manual) Monocytes # (Manual) Eosinophils # (Manual) Nucleated RBC % Basophils # (Manual) PT INR APTT Heparin Anti-Xa Level ABG pH POC ABG pO2 ABG pO2 ABG HCO3 ABG O2 Saturation ABG Base Excess POC ABG pCO2 ABG Hemoglobin ABG Oxyhemoglobin ABG Sodium ABG Chloride ABG Glucose Oxyhemoglobin Sodium Potassium Chloride Carbon Dioxide BUN Creatinine Glucose POC Glucose 150 H 134 H Lactic Acid Calcium Phosphorus Magnesium AST ALT Lactate Dehydrogenase Total Bilirubin Direct Bilirubin CK-MB (CK-2) C-Reactive Protein NT-Pro-B Natriuret Pep Total Protein Albumin Arterial Blood Glucose Urine WBC (Auto) Urine Creatinine Digoxin 12/16/19 12/16/19 12/16/19 05:46 05:46 11:44 WBC RBC Hgb Hct MCHC RDW MCV MCH Lymph % (Auto) [place] % (Auto) [place] # Eos # Lymph # (Auto) [place] # (Auto) Eos # (Auto) Seg Neutrophils % Seg Neuts % (Manual) Baso # (Auto) Lymphocytes % (Manual) Monocytes % (Manual) Eosinophils % (Manual) Basophils % (Manual) Seg Neutrophils # Seg Neutrophils # Man Lymphocytes # (Manual) Monocytes # (Manual) Eosinophils # (Manual) Nucleated RBC % Basophils # (Manual) PT INR APTT Heparin Anti-Xa Level 0.20 L ABG pH POC ABG pO2 ABG pO2 ABG HCO3 ABG O2 Saturation ABG Base Excess POC ABG pCO2 ABG Hemoglobin ABG Oxyhemoglobin ABG Sodium ABG Chloride ABG Glucose Oxyhemoglobin Sodium Potassium Chloride Carbon Dioxide 31 H BUN Creatinine 0.5 L Glucose 147 H POC Glucose 164 H Lactic Acid Calcium Phosphorus Magnesium AST ALT Lactate Dehydrogenase Total Bilirubin Direct Bilirubin CK-MB (CK-2) C-Reactive Protein NT-Pro-B Natriuret Pep Total Protein Albumin Arterial Blood Glucose Urine WBC (Auto) Urine Creatinine Digoxin 12/16/19 12/16/19 12/17/19 17:17 23:49 05:30 WBC 13.9 H RBC 3.27 L Hgb 9.4 L Hct 29.2 L MCHC RDW 16.0 H MCV MCH Lymph % (Auto) [place] % (Auto) 8.8 H [place] # Eos # Lymph # (Auto) [place] # (Auto) 1.2 H Eos # (Auto) 0.5 H Seg Neutrophils % 70.5 H Seg Neuts % (Manual) Baso # (Auto) 0.2 H Lymphocytes % (Manual) Monocytes % (Manual) Eosinophils % (Manual) Basophils % (Manual) Seg Neutrophils # 9.8 H Seg Neutrophils # Man Lymphocytes # (Manual) Monocytes # (Manual) Eosinophils # (Manual) Nucleated RBC % Basophils # (Manual) PT INR APTT Heparin Anti-Xa Level ABG pH POC ABG pO2 ABG pO2 ABG HCO3 ABG O2 Saturation ABG Base Excess POC ABG pCO2 ABG Hemoglobin ABG Oxyhemoglobin ABG Sodium ABG Chloride ABG Glucose Oxyhemoglobin Sodium Potassium Chloride Carbon Dioxide BUN Creatinine Glucose POC Glucose 162 H 144 H Lactic Acid Calcium Phosphorus Magnesium AST ALT Lactate Dehydrogenase Total Bilirubin Direct Bilirubin CK-MB (CK-2) C-Reactive Protein NT-Pro-B Natriuret Pep Total Protein Albumin Arterial Blood Glucose Urine WBC (Auto) Urine Creatinine Digoxin 12/17/19 12/17/19 12/17/19 05:30 06:06 11:50 WBC RBC Hgb Hct MCHC RDW MCV MCH Lymph % (Auto) [place] % (Auto) [place] # Eos # Lymph # (Auto) [place] # (Auto) Eos # (Auto) Seg Neutrophils % Seg Neuts % (Manual) Baso # (Auto) Lymphocytes % (Manual) Monocytes % (Manual) Eosinophils % (Manual) Basophils % (Manual) Seg Neutrophils # Seg Neutrophils # Man Lymphocytes # (Manual) Monocytes # (Manual) Eosinophils # (Manual) Nucleated RBC % Basophils # (Manual) PT INR APTT Heparin Anti-Xa Level ABG pH POC ABG pO2 ABG pO2 ABG HCO3 ABG O2 Saturation ABG Base Excess POC ABG pCO2 ABG Hemoglobin ABG Oxyhemoglobin ABG Sodium ABG Chloride ABG Glucose Oxyhemoglobin Sodium Potassium Chloride 97.4 L Carbon Dioxide 32 H BUN Creatinine 0.5 L Glucose 135 H POC Glucose 151 H 140 H Lactic Acid Calcium Phosphorus Magnesium AST ALT Lactate Dehydrogenase Total Bilirubin Direct Bilirubin CK-MB (CK-2) C-Reactive Protein NT-Pro-B Natriuret Pep Total Protein Albumin Arterial Blood Glucose Urine WBC (Auto) Urine Creatinine Digoxin 12/17/19 12/17/19 12/18/19 17:50 23:46 05:17 WBC RBC Hgb 8.8 L Hct 28.0 L MCHC RDW MCV MCH Lymph % (Auto) [place] % (Auto) [place] # Eos # Lymph # (Auto) [place] # (Auto) Eos # (Auto) Seg Neutrophils % Seg Neuts % (Manual) Baso # (Auto) Lymphocytes % (Manual) Monocytes % (Manual) Eosinophils % (Manual) Basophils % (Manual) Seg Neutrophils # Seg Neutrophils # Man Lymphocytes # (Manual) Monocytes # (Manual) Eosinophils # (Manual) Nucleated RBC % Basophils # (Manual) PT INR APTT Heparin Anti-Xa Level ABG pH POC ABG pO2 ABG pO2 ABG HCO3 ABG O2 Saturation ABG Base Excess POC ABG pCO2 ABG Hemoglobin ABG Oxyhemoglobin ABG Sodium ABG Chloride ABG Glucose Oxyhemoglobin Sodium Potassium Chloride Carbon Dioxide BUN Creatinine Glucose POC Glucose 158 H 150 H Lactic Acid Calcium Phosphorus Magnesium AST ALT Lactate Dehydrogenase Total Bilirubin Direct Bilirubin CK-MB (CK-2) C-Reactive Protein NT-Pro-B Natriuret Pep Total Protein Albumin Arterial Blood Glucose Urine WBC (Auto) Urine Creatinine Digoxin 12/18/19 12/18/19 12/18/19 05:17 05:49 11:12 WBC RBC Hgb Hct MCHC RDW MCV MCH Lymph % (Auto) [place] % (Auto) [place] # Eos # Lymph # (Auto) [place] # (Auto) Eos # (Auto) Seg Neutrophils % Seg Neuts % (Manual) Baso # (Auto) Lymphocytes % (Manual) Monocytes % (Manual) Eosinophils % (Manual) Basophils % (Manual) Seg Neutrophils # Seg Neutrophils # Man Lymphocytes # (Manual) Monocytes # (Manual) Eosinophils # (Manual) Nucleated RBC % Basophils # (Manual) PT INR APTT Heparin Anti-Xa Level 0.16 L ABG pH POC ABG pO2 ABG pO2 ABG HCO3 ABG O2 Saturation ABG Base Excess POC ABG pCO2 ABG Hemoglobin ABG Oxyhemoglobin ABG Sodium ABG Chloride ABG Glucose Oxyhemoglobin Sodium Potassium Chloride Carbon Dioxide BUN Creatinine Glucose POC Glucose 127 H 191 H Lactic Acid Calcium Phosphorus Magnesium AST ALT Lactate Dehydrogenase Total Bilirubin Direct Bilirubin CK-MB (CK-2) C-Reactive Protein NT-Pro-B Natriuret Pep Total Protein Albumin Arterial Blood Glucose Urine WBC (Auto) Urine Creatinine Digoxin 12/18/19 12/18/19 12/19/19 17:03 20:16 00:08 WBC RBC Hgb Hct MCHC RDW MCV MCH Lymph % (Auto) [place] % (Auto) [place] # Eos # Lymph # (Auto) [place] # (Auto) Eos # (Auto) Seg Neutrophils % Seg Neuts % (Manual) Baso # (Auto) Lymphocytes % (Manual) Monocytes % (Manual) Eosinophils % (Manual) Basophils % (Manual) Seg Neutrophils # Seg Neutrophils # Man Lymphocytes # (Manual) Monocytes # (Manual) Eosinophils # (Manual) Nucleated RBC % Basophils # (Manual) PT INR APTT Heparin Anti-Xa Level ABG pH POC ABG pO2 ABG pO2 ABG HCO3 ABG O2 Saturation ABG Base Excess POC ABG pCO2 ABG Hemoglobin ABG Oxyhemoglobin ABG Sodium ABG Chloride ABG Glucose Oxyhemoglobin Sodium Potassium Chloride Carbon Dioxide BUN Creatinine Glucose POC Glucose 133 H 128 H 129 H Lactic Acid Calcium Phosphorus Magnesium AST ALT Lactate Dehydrogenase Total Bilirubin Direct Bilirubin CK-MB (CK-2) C-Reactive Protein NT-Pro-B Natriuret Pep Total Protein Albumin Arterial Blood Glucose Urine WBC (Auto) Urine Creatinine Digoxin 12/19/19 12/19/19 12/19/19 04:45 04:45 05:35 WBC RBC Hgb Hct MCHC RDW MCV MCH Lymph % (Auto) [place] % (Auto) [place] # Eos # Lymph # (Auto) [place] # (Auto) Eos # (Auto) Seg Neutrophils % Seg Neuts % (Manual) Baso # (Auto) Lymphocytes % (Manual) Monocytes % (Manual) Eosinophils % (Manual) Basophils % (Manual) Seg Neutrophils # Seg Neutrophils # Man Lymphocytes # (Manual) Monocytes # (Manual) Eosinophils # (Manual) Nucleated RBC % Basophils # (Manual) PT INR APTT Heparin Anti-Xa Level 0.17 L ABG pH POC ABG pO2 ABG pO2 ABG HCO3 ABG O2 Saturation ABG Base Excess POC ABG pCO2 ABG Hemoglobin ABG Oxyhemoglobin ABG Sodium ABG Chloride ABG Glucose Oxyhemoglobin Sodium Potassium Chloride Carbon Dioxide BUN Creatinine Glucose POC Glucose 120 H Lactic Acid Calcium Phosphorus Magnesium AST ALT Lactate Dehydrogenase 228 H Total Bilirubin Direct Bilirubin CK-MB (CK-2) C-Reactive Protein NT-Pro-B Natriuret Pep Total Protein Albumin Arterial Blood Glucose Urine WBC (Auto) Urine Creatinine Digoxin 12/19/19 12/19/19 12/19/19 09:20 11:32 11:32 WBC 14.6 H RBC 3.08 L Hgb 9.0 L Hct 26.8 L MCHC RDW 15.9 H MCV MCH Lymph % (Auto) [place] % (Auto) [place] # Eos # Lymph # (Auto) [place] # (Auto) Eos # (Auto) Seg Neutrophils % Seg Neuts % (Manual) 82.0 H Baso # (Auto) Lymphocytes % (Manual) 10.0 L Monocytes % (Manual) Eosinophils % (Manual) Basophils % (Manual) Seg Neutrophils # Seg Neutrophils # Man 12.0 H Lymphocytes # (Manual) Monocytes # (Manual) 0.9 H Eosinophils # (Manual) Nucleated RBC % 1.0 H Basophils # (Manual) PT INR APTT Heparin Anti-Xa Level ABG pH 7.451 H POC ABG pO2 ABG pO2 62.6 L ABG HCO3 33.2 H ABG O2 Saturation 93.8 L ABG Base Excess 8.3 H POC ABG pCO2 ABG Hemoglobin 8.3 L ABG Oxyhemoglobin ABG Sodium ABG Chloride ABG Glucose Oxyhemoglobin 91.9 L Sodium Potassium Chloride 95.0 L Carbon Dioxide 33 H BUN 22 H Creatinine 0.6 L Glucose 150 H POC Glucose Lactic Acid Calcium Phosphorus Magnesium AST ALT Lactate Dehydrogenase Total Bilirubin Direct Bilirubin CK-MB (CK-2) C-Reactive Protein NT-Pro-B Natriuret Pep Total Protein 6.2 L Albumin 2.4 L Arterial Blood Glucose Urine WBC (Auto) Urine Creatinine Digoxin 12/19/19 12/19/19 12/20/19 11:56 18:17 00:09 WBC RBC Hgb Hct MCHC RDW MCV MCH Lymph % (Auto) [place] % (Auto) [place] # Eos # Lymph # (Auto) [place] # (Auto) Eos # (Auto) Seg Neutrophils % Seg Neuts % (Manual) Baso # (Auto) Lymphocytes % (Manual) Monocytes % (Manual) Eosinophils % (Manual) Basophils % (Manual) Seg Neutrophils # Seg Neutrophils # Man Lymphocytes # (Manual) Monocytes # (Manual) Eosinophils # (Manual) Nucleated RBC % Basophils # (Manual) PT INR APTT Heparin Anti-Xa Level ABG pH POC ABG pO2 ABG pO2 ABG HCO3 ABG O2 Saturation ABG Base Excess POC ABG pCO2 ABG Hemoglobin ABG Oxyhemoglobin ABG Sodium ABG Chloride ABG Glucose Oxyhemoglobin Sodium Potassium Chloride Carbon Dioxide BUN Creatinine Glucose POC Glucose 156 H 156 H 155 H Lactic Acid Calcium Phosphorus Magnesium AST ALT Lactate Dehydrogenase Total Bilirubin Direct Bilirubin CK-MB (CK-2) C-Reactive Protein NT-Pro-B Natriuret Pep Total Protein Albumin Arterial Blood Glucose Urine WBC (Auto) Urine Creatinine Digoxin 12/20/19 12/20/19 12/20/19 05:26 06:02 18:17 WBC RBC Hgb Hct MCHC RDW MCV MCH Lymph % (Auto) [place] % (Auto) [place] # Eos # Lymph # (Auto) [place] # (Auto) Eos # (Auto) Seg Neutrophils % Seg Neuts % (Manual) Baso # (Auto) Lymphocytes % (Manual) Monocytes % (Manual) Eosinophils % (Manual) Basophils % (Manual) Seg Neutrophils # Seg Neutrophils # Man Lymphocytes # (Manual) Monocytes # (Manual) Eosinophils # (Manual) Nucleated RBC % Basophils # (Manual) PT INR APTT Heparin Anti-Xa Level 0.19 L ABG pH POC ABG pO2 ABG pO2 ABG HCO3 ABG O2 Saturation ABG Base Excess POC ABG pCO2 ABG Hemoglobin ABG Oxyhemoglobin ABG Sodium ABG Chloride ABG Glucose Oxyhemoglobin Sodium Potassium Chloride Carbon Dioxide BUN Creatinine Glucose POC Glucose 137 H 128 H Lactic Acid Calcium Phosphorus Magnesium AST ALT Lactate Dehydrogenase Total Bilirubin Direct Bilirubin CK-MB (CK-2) C-Reactive Protein NT-Pro-B Natriuret Pep Total Protein Albumin Arterial Blood Glucose Urine WBC (Auto) Urine Creatinine Digoxin 12/20/19 12/21/19 12/21/19 23:34 05:31 05:31 WBC 12.7 H RBC 3.09 L Hgb 8.9 L Hct 27.4 L MCHC RDW 15.8 H MCV MCH Lymph % (Auto) 12.1 L [place] % (Auto) 7.8 H [place] # Eos # Lymph # (Auto) [place] # (Auto) 1.0 H Eos # (Auto) Seg Neutrophils % 77.1 H Seg Neuts % (Manual) Baso # (Auto) Lymphocytes % (Manual) Monocytes % (Manual) Eosinophils % (Manual) Basophils % (Manual) Seg Neutrophils # 9.8 H Seg Neutrophils # Man Lymphocytes # (Manual) Monocytes # (Manual) Eosinophils # (Manual) Nucleated RBC % Basophils # (Manual) PT INR APTT Heparin Anti-Xa Level ABG pH POC ABG pO2 ABG pO2 ABG HCO3 ABG O2 Saturation ABG Base Excess POC ABG pCO2 ABG Hemoglobin ABG Oxyhemoglobin ABG Sodium ABG Chloride ABG Glucose Oxyhemoglobin Sodium Potassium Chloride 96.9 L Carbon Dioxide 37 H BUN 27 H Creatinine 0.7 L Glucose 140 H POC Glucose 145 H Lactic Acid Calcium Phosphorus Magnesium AST ALT Lactate Dehydrogenase Total Bilirubin Direct Bilirubin CK-MB (CK-2) C-Reactive Protein NT-Pro-B Natriuret Pep Total Protein Albumin Arterial Blood Glucose Urine WBC (Auto) Urine Creatinine Digoxin 12/21/19 12/21/19 12/21/19 05:38 10:13 11:51 WBC RBC Hgb Hct MCHC RDW MCV MCH Lymph % (Auto) [place] % (Auto) [place] # Eos # Lymph # (Auto) [place] # (Auto) Eos # (Auto) Seg Neutrophils % Seg Neuts % (Manual) Baso # (Auto) Lymphocytes % (Manual) Monocytes % (Manual) Eosinophils % (Manual) Basophils % (Manual) Seg Neutrophils # Seg Neutrophils # Man Lymphocytes # (Manual) Monocytes # (Manual) Eosinophils # (Manual) Nucleated RBC % Basophils # (Manual) PT INR APTT 23.9 L Heparin Anti-Xa Level < 0.10 L ABG pH POC ABG pO2 ABG pO2 ABG HCO3 ABG O2 Saturation ABG Base Excess POC ABG pCO2 ABG Hemoglobin ABG Oxyhemoglobin ABG Sodium ABG Chloride ABG Glucose Oxyhemoglobin Sodium Potassium Chloride Carbon Dioxide BUN Creatinine Glucose POC Glucose 151 H 145 H Lactic Acid Calcium Phosphorus Magnesium AST ALT Lactate Dehydrogenase Total Bilirubin Direct Bilirubin CK-MB (CK-2) C-Reactive Protein NT-Pro-B Natriuret Pep Total Protein Albumin Arterial Blood Glucose Urine WBC (Auto) Urine Creatinine Digoxin 12/21/19 12/22/19 12/22/19 17:16 00:01 01:33 WBC RBC Hgb Hct MCHC RDW MCV MCH Lymph % (Auto) [place] % (Auto) [place] # Eos # Lymph # (Auto) [place] # (Auto) Eos # (Auto) Seg Neutrophils % Seg Neuts % (Manual) Baso # (Auto) Lymphocytes % (Manual) Monocytes % (Manual) Eosinophils % (Manual) Basophils % (Manual) Seg Neutrophils # Seg Neutrophils # Man Lymphocytes # (Manual) Monocytes # (Manual) Eosinophils # (Manual) Nucleated RBC % Basophils # (Manual) PT INR APTT Heparin Anti-Xa Level 0.10 L ABG pH POC ABG pO2 ABG pO2 ABG HCO3 ABG O2 Saturation ABG Base Excess POC ABG pCO2 ABG Hemoglobin ABG Oxyhemoglobin ABG Sodium ABG Chloride ABG Glucose Oxyhemoglobin Sodium Potassium Chloride Carbon Dioxide BUN Creatinine Glucose POC Glucose 167 H 179 H Lactic Acid Calcium Phosphorus Magnesium AST ALT Lactate Dehydrogenase Total Bilirubin Direct Bilirubin CK-MB (CK-2) C-Reactive Protein NT-Pro-B Natriuret Pep Total Protein Albumin Arterial Blood Glucose Urine WBC (Auto) Urine Creatinine Digoxin 12/22/19 12/22/19 12/22/19 03:22 05:10 05:10 WBC 13.8 H RBC 3.20 L Hgb 8.9 L Hct 28.1 L MCHC RDW 15.9 H MCV MCH Lymph % (Auto) [place] % (Auto) [place] # Eos # Lymph # (Auto) [place] # (Auto) Eos # (Auto) Seg Neutrophils % Seg Neuts % (Manual) Baso # (Auto) Lymphocytes % (Manual) Monocytes % (Manual) Eosinophils % (Manual) Basophils % (Manual) Seg Neutrophils # Seg Neutrophils # Man Lymphocytes # (Manual) Monocytes # (Manual) Eosinophils # (Manual) Nucleated RBC % Basophils # (Manual) PT INR APTT Heparin Anti-Xa Level ABG pH POC ABG pO2 52.3 L ABG pO2 ABG HCO3 ABG O2 Saturation ABG Base Excess POC ABG pCO2 52.9 H ABG Hemoglobin 10.7 L ABG Oxyhemoglobin 84 L ABG Sodium ABG Chloride ABG Glucose Oxyhemoglobin Sodium Potassium Chloride 96.6 L Carbon Dioxide BUN 25 H Creatinine 0.7 L Glucose 129 H POC Glucose Lactic Acid Calcium Phosphorus Magnesium AST ALT Lactate Dehydrogenase Total Bilirubin Direct Bilirubin CK-MB (CK-2) C-Reactive Protein NT-Pro-B Natriuret Pep Total Protein Albumin Arterial Blood Glucose Urine WBC (Auto) Urine Creatinine Digoxin 12/22/19 12/22/19 12/22/19 05:18 12:32 12:43 WBC RBC Hgb Hct MCHC RDW MCV MCH Lymph % (Auto) [place] % (Auto) [place] # Eos # Lymph # (Auto) [place] # (Auto) Eos # (Auto) Seg Neutrophils % Seg Neuts % (Manual) Baso # (Auto) Lymphocytes % (Manual) Monocytes % (Manual) Eosinophils % (Manual) Basophils % (Manual) Seg Neutrophils # Seg Neutrophils # Man Lymphocytes # (Manual) Monocytes # (Manual) Eosinophils # (Manual) Nucleated RBC % Basophils # (Manual) PT INR APTT Heparin Anti-Xa Level 0.18 L ABG pH POC ABG pO2 ABG pO2 ABG HCO3 ABG O2 Saturation ABG Base Excess POC ABG pCO2 ABG Hemoglobin ABG Oxyhemoglobin ABG Sodium ABG Chloride ABG Glucose Oxyhemoglobin Sodium Potassium Chloride Carbon Dioxide BUN Creatinine Glucose POC Glucose 131 H 208 H Lactic Acid Calcium Phosphorus Magnesium AST ALT Lactate Dehydrogenase Total Bilirubin Direct Bilirubin CK-MB (CK-2) C-Reactive Protein NT-Pro-B Natriuret Pep Total Protein Albumin Arterial Blood Glucose Urine WBC (Auto) Urine Creatinine Digoxin 12/22/19 12/22/19 12/23/19 17:44 23:20 03:51 WBC 15.2 H RBC 3.43 L Hgb 9.6 L Hct 30.3 L MCHC RDW 15.9 H MCV MCH Lymph % (Auto) [place] % (Auto) [place] # Eos # Lymph # (Auto) [place] # (Auto) Eos # (Auto) Seg Neutrophils % Seg Neuts % (Manual) Baso # (Auto) Lymphocytes % (Manual) Monocytes % (Manual) Eosinophils % (Manual) Basophils % (Manual) Seg Neutrophils # Seg Neutrophils # Man Lymphocytes # (Manual) Monocytes # (Manual) Eosinophils # (Manual) Nucleated RBC % Basophils # (Manual) PT INR APTT Heparin Anti-Xa Level ABG pH POC ABG pO2 ABG pO2 ABG HCO3 ABG O2 Saturation ABG Base Excess POC ABG pCO2 ABG Hemoglobin ABG Oxyhemoglobin ABG Sodium ABG Chloride ABG Glucose Oxyhemoglobin Sodium Potassium Chloride Carbon Dioxide BUN Creatinine Glucose POC Glucose 209 H 119 H Lactic Acid Calcium Phosphorus Magnesium AST ALT Lactate Dehydrogenase Total Bilirubin Direct Bilirubin CK-MB (CK-2) C-Reactive Protein NT-Pro-B Natriuret Pep Total Protein Albumin Arterial Blood Glucose Urine WBC (Auto) Urine Creatinine Digoxin 12/23/19 12/23/19 12/23/19 03:51 05:31 12:09 WBC RBC Hgb Hct MCHC RDW MCV MCH Lymph % (Auto) [place] % (Auto) [place] # Eos # Lymph # (Auto) [place] # (Auto) Eos # (Auto) Seg Neutrophils % Seg Neuts % (Manual) Baso # (Auto) Lymphocytes % (Manual) Monocytes % (Manual) Eosinophils % (Manual) Basophils % (Manual) Seg Neutrophils # Seg Neutrophils # Man Lymphocytes # (Manual) Monocytes # (Manual) Eosinophils # (Manual) Nucleated RBC % Basophils # (Manual) PT INR APTT Heparin Anti-Xa Level ABG pH POC ABG pO2 ABG pO2 ABG HCO3 ABG O2 Saturation ABG Base Excess POC ABG pCO2 ABG Hemoglobin ABG Oxyhemoglobin ABG Sodium ABG Chloride ABG Glucose Oxyhemoglobin Sodium Potassium Chloride 97.2 L Carbon Dioxide 31 H BUN 23 H Creatinine 0.6 L Glucose 153 H POC Glucose 149 H 144 H Lactic Acid Calcium Phosphorus Magnesium AST ALT Lactate Dehydrogenase Total Bilirubin Direct Bilirubin CK-MB (CK-2) C-Reactive Protein NT-Pro-B Natriuret Pep Total Protein Albumin Arterial Blood Glucose Urine WBC (Auto) Urine Creatinine Digoxin 12/23/19 12/23/19 12/23/19 15:30 17:49 23:31 WBC RBC Hgb Hct MCHC RDW MCV MCH Lymph % (Auto) [place] % (Auto) [place] # Eos # Lymph # (Auto) [place] # (Auto) Eos # (Auto) Seg Neutrophils % Seg Neuts % (Manual) Baso # (Auto) Lymphocytes % (Manual) Monocytes % (Manual) Eosinophils % (Manual) Basophils % (Manual) Seg Neutrophils # Seg Neutrophils # Man Lymphocytes # (Manual) Monocytes # (Manual) Eosinophils # (Manual) Nucleated RBC % Basophils # (Manual) PT INR APTT Heparin Anti-Xa Level 0.21 L ABG pH POC ABG pO2 ABG pO2 ABG HCO3 ABG O2 Saturation ABG Base Excess POC ABG pCO2 ABG Hemoglobin ABG Oxyhemoglobin ABG Sodium ABG Chloride ABG Glucose Oxyhemoglobin Sodium Potassium Chloride Carbon Dioxide BUN Creatinine Glucose POC Glucose 192 H 151 H Lactic Acid Calcium Phosphorus Magnesium AST ALT Lactate Dehydrogenase Total Bilirubin Direct Bilirubin CK-MB (CK-2) C-Reactive Protein NT-Pro-B Natriuret Pep Total Protein Albumin Arterial Blood Glucose Urine WBC (Auto) Urine Creatinine Digoxin 12/24/19 12/24/19 12/24/19 05:34 12:13 16:50 WBC RBC Hgb Hct MCHC RDW MCV MCH Lymph % (Auto) [place] % (Auto) [place] # Eos # Lymph # (Auto) [place] # (Auto) Eos # (Auto) Seg Neutrophils % Seg Neuts % (Manual) Baso # (Auto) Lymphocytes % (Manual) Monocytes % (Manual) Eosinophils % (Manual) Basophils % (Manual) Seg Neutrophils # Seg Neutrophils # Man Lymphocytes # (Manual) Monocytes # (Manual) Eosinophils # (Manual) Nucleated RBC % Basophils # (Manual) PT INR APTT Heparin Anti-Xa Level 0.16 L ABG pH POC ABG pO2 ABG pO2 ABG HCO3 ABG O2 Saturation ABG Base Excess POC ABG pCO2 ABG Hemoglobin ABG Oxyhemoglobin ABG Sodium ABG Chloride ABG Glucose Oxyhemoglobin Sodium Potassium Chloride Carbon Dioxide BUN Creatinine Glucose POC Glucose 145 H 124 H Lactic Acid Calcium Phosphorus Magnesium AST ALT Lactate Dehydrogenase Total Bilirubin Direct Bilirubin CK-MB (CK-2) C-Reactive Protein NT-Pro-B Natriuret Pep Total Protein Albumin Arterial Blood Glucose Urine WBC (Auto) Urine Creatinine Digoxin 12/24/19 12/25/19 12/25/19 17:53 00:14 04:18 WBC 12.9 H RBC 3.30 L Hgb 9.1 L Hct 28.8 L MCHC RDW 16.4 H MCV MCH Lymph % (Auto) [place] % (Auto) 7.8 H [place] # Eos # Lymph # (Auto) [place] # (Auto) 1.0 H Eos # (Auto) Seg Neutrophils % 75.5 H Seg Neuts % (Manual) Baso # (Auto) Lymphocytes % (Manual) Monocytes % (Manual) Eosinophils % (Manual) Basophils % (Manual) Seg Neutrophils # 9.7 H Seg Neutrophils # Man Lymphocytes # (Manual) Monocytes # (Manual) Eosinophils # (Manual) Nucleated RBC % Basophils # (Manual) PT INR APTT Heparin Anti-Xa Level ABG pH POC ABG pO2 ABG pO2 ABG HCO3 ABG O2 Saturation ABG Base Excess POC ABG pCO2 ABG Hemoglobin ABG Oxyhemoglobin ABG Sodium ABG Chloride ABG Glucose Oxyhemoglobin Sodium Potassium Chloride Carbon Dioxide BUN Creatinine Glucose POC Glucose 164 H 148 H Lactic Acid Calcium Phosphorus Magnesium AST ALT Lactate Dehydrogenase Total Bilirubin Direct Bilirubin CK-MB (CK-2) C-Reactive Protein NT-Pro-B Natriuret Pep Total Protein Albumin Arterial Blood Glucose Urine WBC (Auto) Urine Creatinine Digoxin 12/25/19 12/25/19 12/25/19 04:18 05:38 11:44 WBC RBC Hgb Hct MCHC RDW MCV MCH Lymph % (Auto) [place] % (Auto) [place] # Eos # Lymph # (Auto) [place] # (Auto) Eos # (Auto) Seg Neutrophils % Seg Neuts % (Manual) Baso # (Auto) Lymphocytes % (Manual) Monocytes % (Manual) Eosinophils % (Manual) Basophils % (Manual) Seg Neutrophils # Seg Neutrophils # Man Lymphocytes # (Manual) Monocytes # (Manual) Eosinophils # (Manual) Nucleated RBC % Basophils # (Manual) PT INR APTT Heparin Anti-Xa Level ABG pH POC ABG pO2 ABG pO2 ABG HCO3 ABG O2 Saturation ABG Base Excess POC ABG pCO2 ABG Hemoglobin ABG Oxyhemoglobin ABG Sodium ABG Chloride ABG Glucose Oxyhemoglobin Sodium Potassium Chloride Carbon Dioxide 33 H BUN 27 H Creatinine 0.6 L Glucose 132 H POC Glucose 152 H 166 H Lactic Acid Calcium Phosphorus Magnesium AST ALT Lactate Dehydrogenase Total Bilirubin Direct Bilirubin CK-MB (CK-2) C-Reactive Protein NT-Pro-B Natriuret Pep Total Protein Albumin Arterial Blood Glucose Urine WBC (Auto) Urine Creatinine Digoxin 12/25/19 12/26/19 12/26/19 18:29 00:17 00:18 WBC RBC Hgb Hct MCHC RDW MCV MCH Lymph % (Auto) [place] % (Auto) [place] # Eos # Lymph # (Auto) [place] # (Auto) Eos # (Auto) Seg Neutrophils % Seg Neuts % (Manual) Baso # (Auto) Lymphocytes % (Manual) Monocytes % (Manual) Eosinophils % (Manual) Basophils % (Manual) Seg Neutrophils # Seg Neutrophils # Man Lymphocytes # (Manual) Monocytes # (Manual) Eosinophils # (Manual) Nucleated RBC % Basophils # (Manual) PT INR APTT Heparin Anti-Xa Level ABG pH POC ABG pO2 ABG pO2 ABG HCO3 ABG O2 Saturation ABG Base Excess POC ABG pCO2 ABG Hemoglobin ABG Oxyhemoglobin ABG Sodium ABG Chloride ABG Glucose Oxyhemoglobin Sodium Potassium Chloride 97.8 L Carbon Dioxide BUN 25 H Creatinine 0.6 L Glucose 140 H POC Glucose 194 H 151 H Lactic Acid Calcium Phosphorus Magnesium AST ALT Lactate Dehydrogenase Total Bilirubin Direct Bilirubin CK-MB (CK-2) C-Reactive Protein NT-Pro-B Natriuret Pep Total Protein Albumin Arterial Blood Glucose Urine WBC (Auto) Urine Creatinine Digoxin 12/26/19 12/26/19 12/26/19 05:36 11:41 17:50 WBC RBC Hgb Hct MCHC RDW MCV MCH Lymph % (Auto) [place] % (Auto) [place] # Eos # Lymph # (Auto) [place] # (Auto) Eos # (Auto) Seg Neutrophils % Seg Neuts % (Manual) Baso # (Auto) Lymphocytes % (Manual) Monocytes % (Manual) Eosinophils % (Manual) Basophils % (Manual) Seg Neutrophils # Seg Neutrophils # Man Lymphocytes # (Manual) Monocytes # (Manual) Eosinophils # (Manual) Nucleated RBC % Basophils # (Manual) PT INR APTT Heparin Anti-Xa Level ABG pH POC ABG pO2 ABG pO2 ABG HCO3 ABG O2 Saturation ABG Base Excess POC ABG pCO2 ABG Hemoglobin ABG Oxyhemoglobin ABG Sodium ABG Chloride ABG Glucose Oxyhemoglobin Sodium Potassium Chloride Carbon Dioxide BUN Creatinine Glucose POC Glucose 156 H 148 H 139 H Lactic Acid Calcium Phosphorus Magnesium AST ALT Lactate Dehydrogenase Total Bilirubin Direct Bilirubin CK-MB (CK-2) C-Reactive Protein NT-Pro-B Natriuret Pep Total Protein Albumin Arterial Blood Glucose Urine WBC (Auto) Urine Creatinine Digoxin 12/26/19 12/27/19 12/27/19 23:19 05:34 12:02 WBC RBC Hgb Hct MCHC RDW MCV MCH Lymph % (Auto) [place] % (Auto) [place] # Eos # Lymph # (Auto) [place] # (Auto) Eos # (Auto) Seg Neutrophils % Seg Neuts % (Manual) Baso # (Auto) Lymphocytes % (Manual) Monocytes % (Manual) Eosinophils % (Manual) Basophils % (Manual) Seg Neutrophils # Seg Neutrophils # Man Lymphocytes # (Manual) Monocytes # (Manual) Eosinophils # (Manual) Nucleated RBC % Basophils # (Manual) PT INR APTT Heparin Anti-Xa Level ABG pH POC ABG pO2 ABG pO2 ABG HCO3 ABG O2 Saturation ABG Base Excess POC ABG pCO2 ABG Hemoglobin ABG Oxyhemoglobin ABG Sodium ABG Chloride ABG Glucose Oxyhemoglobin Sodium Potassium Chloride Carbon Dioxide BUN Creatinine Glucose POC Glucose 161 H 145 H 157 H Lactic Acid Calcium Phosphorus Magnesium AST ALT Lactate Dehydrogenase Total Bilirubin Direct Bilirubin CK-MB (CK-2) C-Reactive Protein NT-Pro-B Natriuret Pep Total Protein Albumin Arterial Blood Glucose Urine WBC (Auto) Urine Creatinine Digoxin 12/27/19 12/27/19 12/27/19 17:35 20:11 23:00 WBC RBC Hgb Hct MCHC RDW MCV MCH Lymph % (Auto) [place] % (Auto) [place] # Eos # Lymph # (Auto) [place] # (Auto) Eos # (Auto) Seg Neutrophils % Seg Neuts % (Manual) Baso # (Auto) Lymphocytes % (Manual) Monocytes % (Manual) Eosinophils % (Manual) Basophils % (Manual) Seg Neutrophils # Seg Neutrophils # Man Lymphocytes # (Manual) Monocytes # (Manual) Eosinophils # (Manual) Nucleated RBC % Basophils # (Manual) PT INR APTT Heparin Anti-Xa Level 0.19 L ABG pH POC ABG pO2 ABG pO2 ABG HCO3 ABG O2 Saturation ABG Base Excess POC ABG pCO2 ABG Hemoglobin ABG Oxyhemoglobin ABG Sodium ABG Chloride ABG Glucose Oxyhemoglobin Sodium Potassium Chloride Carbon Dioxide BUN Creatinine Glucose POC Glucose 158 H 155 H Lactic Acid Calcium Phosphorus Magnesium AST ALT Lactate Dehydrogenase Total Bilirubin Direct Bilirubin CK-MB (CK-2) C-Reactive Protein NT-Pro-B Natriuret Pep Total Protein Albumin Arterial Blood Glucose Urine WBC (Auto) Urine Creatinine Digoxin 12/27/19 12/28/19 12/28/19 23:45 02:41 02:41 WBC 13.0 H RBC 3.48 L Hgb 9.5 L Hct 30.6 L MCHC 31 L RDW 16.6 H MCV MCH 27 L Lymph % (Auto) 13.0 L [place] % (Auto) 8.0 H [place] # Eos # Lymph # (Auto) [place] # (Auto) 1.0 H Eos # (Auto) Seg Neutrophils % 76.3 H Seg Neuts % (Manual) Baso # (Auto) Lymphocytes % (Manual) Monocytes % (Manual) Eosinophils % (Manual) Basophils % (Manual) Seg Neutrophils # 9.9 H Seg Neutrophils # Man Lymphocytes # (Manual) Monocytes # (Manual) Eosinophils # (Manual) Nucleated RBC % Basophils # (Manual) PT INR APTT Heparin Anti-Xa Level ABG pH POC ABG pO2 ABG pO2 ABG HCO3 ABG O2 Saturation ABG Base Excess POC ABG pCO2 ABG Hemoglobin ABG Oxyhemoglobin ABG Sodium ABG Chloride ABG Glucose Oxyhemoglobin Sodium Potassium Chloride Carbon Dioxide BUN 22 H Creatinine 0.6 L Glucose 101 H POC Glucose 130 H Lactic Acid Calcium Phosphorus Magnesium AST ALT Lactate Dehydrogenase Total Bilirubin Direct Bilirubin CK-MB (CK-2) C-Reactive Protein NT-Pro-B Natriuret Pep Total Protein Albumin Arterial Blood Glucose Urine WBC (Auto) Urine Creatinine Digoxin 12/28/19 12/28/19 12/28/19 06:00 12:34 18:13 WBC RBC Hgb Hct MCHC RDW MCV MCH Lymph % (Auto) [place] % (Auto) [place] # Eos # Lymph # (Auto) [place] # (Auto) Eos # (Auto) Seg Neutrophils % Seg Neuts % (Manual) Baso # (Auto) Lymphocytes % (Manual) Monocytes % (Manual) Eosinophils % (Manual) Basophils % (Manual) Seg Neutrophils # Seg Neutrophils # Man Lymphocytes # (Manual) Monocytes # (Manual) Eosinophils # (Manual) Nucleated RBC % Basophils # (Manual) PT INR APTT Heparin Anti-Xa Level ABG pH POC ABG pO2 ABG pO2 ABG HCO3 ABG O2 Saturation ABG Base Excess POC ABG pCO2 ABG Hemoglobin ABG Oxyhemoglobin ABG Sodium ABG Chloride ABG Glucose Oxyhemoglobin Sodium Potassium Chloride Carbon Dioxide BUN Creatinine Glucose POC Glucose 150 H 161 H 128 H Lactic Acid Calcium Phosphorus Magnesium AST ALT Lactate Dehydrogenase Total Bilirubin Direct Bilirubin CK-MB (CK-2) C-Reactive Protein NT-Pro-B Natriuret Pep Total Protein Albumin Arterial Blood Glucose Urine WBC (Auto) Urine Creatinine Digoxin 12/28/19 12/29/19 12/29/19 23:36 05:21 11:40 WBC RBC Hgb Hct MCHC RDW MCV MCH Lymph % (Auto) [place] % (Auto) [place] # Eos # Lymph # (Auto) [place] # (Auto) Eos # (Auto) Seg Neutrophils % Seg Neuts % (Manual) Baso # (Auto) Lymphocytes % (Manual) Monocytes % (Manual) Eosinophils % (Manual) Basophils % (Manual) Seg Neutrophils # Seg Neutrophils # Man Lymphocytes # (Manual) Monocytes # (Manual) Eosinophils # (Manual) Nucleated RBC % Basophils # (Manual) PT INR APTT Heparin Anti-Xa Level ABG pH POC ABG pO2 ABG pO2 ABG HCO3 ABG O2 Saturation ABG Base Excess POC ABG pCO2 ABG Hemoglobin ABG Oxyhemoglobin ABG Sodium ABG Chloride ABG Glucose Oxyhemoglobin Sodium Potassium Chloride Carbon Dioxide BUN Creatinine Glucose POC Glucose 137 H 136 H 166 H Lactic Acid Calcium Phosphorus Magnesium AST ALT Lactate Dehydrogenase Total Bilirubin Direct Bilirubin CK-MB (CK-2) C-Reactive Protein NT-Pro-B Natriuret Pep Total Protein Albumin Arterial Blood Glucose Urine WBC (Auto) Urine Creatinine Digoxin 12/29/19 12/29/19 12/29/19 17:23 19:21 23:38 WBC RBC Hgb Hct MCHC RDW MCV MCH Lymph % (Auto) [place] % (Auto) [place] # Eos # Lymph # (Auto) [place] # (Auto) Eos # (Auto) Seg Neutrophils % Seg Neuts % (Manual) Baso # (Auto) Lymphocytes % (Manual) Monocytes % (Manual) Eosinophils % (Manual) Basophils % (Manual) Seg Neutrophils # Seg Neutrophils # Man Lymphocytes # (Manual) Monocytes # (Manual) Eosinophils # (Manual) Nucleated RBC % Basophils # (Manual) PT INR APTT Heparin Anti-Xa Level 0.20 L ABG pH POC ABG pO2 ABG pO2 ABG HCO3 ABG O2 Saturation ABG Base Excess POC ABG pCO2 ABG Hemoglobin ABG Oxyhemoglobin ABG Sodium ABG Chloride ABG Glucose Oxyhemoglobin Sodium Potassium Chloride Carbon Dioxide BUN Creatinine Glucose POC Glucose 144 H 141 H Lactic Acid Calcium Phosphorus Magnesium AST ALT Lactate Dehydrogenase Total Bilirubin Direct Bilirubin CK-MB (CK-2) C-Reactive Protein NT-Pro-B Natriuret Pep Total Protein Albumin Arterial Blood Glucose Urine WBC (Auto) Urine Creatinine Digoxin 12/30/19 12/30/19 12/30/19 03:58 03:58 04:59 WBC RBC 3.54 L Hgb 9.8 L Hct 30.7 L MCHC RDW 16.8 H MCV MCH Lymph % (Auto) [place] % (Auto) [place] # Eos # Lymph # (Auto) [place] # (Auto) Eos # (Auto) Seg Neutrophils % Seg Neuts % (Manual) Baso # (Auto) Lymphocytes % (Manual) Monocytes % (Manual) Eosinophils % (Manual) Basophils % (Manual) Seg Neutrophils # Seg Neutrophils # Man Lymphocytes # (Manual) Monocytes # (Manual) Eosinophils # (Manual) Nucleated RBC % Basophils # (Manual) PT INR APTT Heparin Anti-Xa Level ABG pH POC ABG pO2 ABG pO2 ABG HCO3 29.8 H ABG O2 Saturation ABG Base Excess 4.8 H POC ABG pCO2 ABG Hemoglobin 11.2 L ABG Oxyhemoglobin ABG Sodium ABG Chloride ABG Glucose Oxyhemoglobin 93.8 L Sodium Potassium Chloride 97.8 L Carbon Dioxide BUN 26 H Creatinine Glucose 168 H POC Glucose Lactic Acid Calcium Phosphorus Magnesium AST ALT Lactate Dehydrogenase Total Bilirubin Direct Bilirubin CK-MB (CK-2) C-Reactive Protein NT-Pro-B Natriuret Pep Total Protein Albumin Arterial Blood Glucose Urine WBC (Auto) Urine Creatinine Digoxin 12/30/19 12/30/19 12/30/19 05:45 11:34 17:28 WBC RBC Hgb Hct MCHC RDW MCV MCH Lymph % (Auto) [place] % (Auto) [place] # Eos # Lymph # (Auto) [place] # (Auto) Eos # (Auto) Seg Neutrophils % Seg Neuts % (Manual) Baso # (Auto) Lymphocytes % (Manual) Monocytes % (Manual) Eosinophils % (Manual) Basophils % (Manual) Seg Neutrophils # Seg Neutrophils # Man Lymphocytes # (Manual) Monocytes # (Manual) Eosinophils # (Manual) Nucleated RBC % Basophils # (Manual) PT INR APTT Heparin Anti-Xa Level ABG pH POC ABG pO2 ABG pO2 ABG HCO3 ABG O2 Saturation ABG Base Excess POC ABG pCO2 ABG Hemoglobin ABG Oxyhemoglobin ABG Sodium ABG Chloride ABG Glucose Oxyhemoglobin Sodium Potassium Chloride Carbon Dioxide BUN Creatinine Glucose POC Glucose 163 H 180 H 150 H Lactic Acid Calcium Phosphorus Magnesium AST ALT Lactate Dehydrogenase Total Bilirubin Direct Bilirubin CK-MB (CK-2) C-Reactive Protein NT-Pro-B Natriuret Pep Total Protein Albumin Arterial Blood Glucose Urine WBC (Auto) Urine Creatinine Digoxin 12/30/19 12/31/19 12/31/19 23:43 04:55 05:07 WBC RBC Hgb Hct MCHC RDW MCV MCH Lymph % (Auto) [place] % (Auto) [place] # Eos # Lymph # (Auto) [place] # (Auto) Eos # (Auto) Seg Neutrophils % Seg Neuts % (Manual) Baso # (Auto) Lymphocytes % (Manual) Monocytes % (Manual) Eosinophils % (Manual) Basophils % (Manual) Seg Neutrophils # Seg Neutrophils # Man Lymphocytes # (Manual) Monocytes # (Manual) Eosinophils # (Manual) Nucleated RBC % Basophils # (Manual) PT INR APTT Heparin Anti-Xa Level ABG pH POC ABG pO2 ABG pO2 ABG HCO3 ABG O2 Saturation ABG Base Excess POC ABG pCO2 ABG Hemoglobin ABG Oxyhemoglobin ABG Sodium ABG Chloride ABG Glucose Oxyhemoglobin Sodium Potassium 5.6 H D Chloride Carbon Dioxide BUN 33 H Creatinine Glucose 131 H POC Glucose 142 H 134 H Lactic Acid Calcium Phosphorus Magnesium AST ALT Lactate Dehydrogenase Total Bilirubin Direct Bilirubin CK-MB (CK-2) C-Reactive Protein NT-Pro-B Natriuret Pep Total Protein Albumin Arterial Blood Glucose Urine WBC (Auto) Urine Creatinine Digoxin 12/31/19 12/31/19 12/31/19 11:30 17:19 17:36 WBC RBC Hgb Hct MCHC RDW MCV MCH Lymph % (Auto) [place] % (Auto) [place] # Eos # Lymph # (Auto) [place] # (Auto) Eos # (Auto) Seg Neutrophils % Seg Neuts % (Manual) Baso # (Auto) Lymphocytes % (Manual) Monocytes % (Manual) Eosinophils % (Manual) Basophils % (Manual) Seg Neutrophils # Seg Neutrophils # Man Lymphocytes # (Manual) Monocytes # (Manual) Eosinophils # (Manual) Nucleated RBC % Basophils # (Manual) PT INR APTT Heparin Anti-Xa Level ABG pH POC ABG pO2 ABG pO2 ABG HCO3 ABG O2 Saturation ABG Base Excess POC ABG pCO2 ABG Hemoglobin ABG Oxyhemoglobin ABG Sodium ABG Chloride ABG Glucose Oxyhemoglobin Sodium Potassium Chloride Carbon Dioxide BUN 35 H Creatinine Glucose 156 H POC Glucose 158 H 181 H Lactic Acid Calcium Phosphorus Magnesium AST ALT Lactate Dehydrogenase Total Bilirubin Direct Bilirubin CK-MB (CK-2) C-Reactive Protein NT-Pro-B Natriuret Pep Total Protein Albumin Arterial Blood Glucose Urine WBC (Auto) Urine Creatinine Digoxin 12/31/19 12/31/19 12/31/19 18:16 19:41 21:53 WBC RBC Hgb Hct MCHC RDW MCV MCH Lymph % (Auto) [place] % (Auto) [place] # Eos # Lymph # (Auto) [place] # (Auto) Eos # (Auto) Seg Neutrophils % Seg Neuts % (Manual) Baso # (Auto) Lymphocytes % (Manual) Monocytes % (Manual) Eosinophils % (Manual) Basophils % (Manual) Seg Neutrophils # Seg Neutrophils # Man Lymphocytes # (Manual) Monocytes # (Manual) Eosinophils # (Manual) Nucleated RBC % Basophils # (Manual) PT INR APTT Heparin Anti-Xa Level 0.20 L ABG pH POC ABG pO2 ABG pO2 ABG HCO3 ABG O2 Saturation ABG Base Excess POC ABG pCO2 ABG Hemoglobin ABG Oxyhemoglobin ABG Sodium ABG Chloride ABG Glucose Oxyhemoglobin Sodium Potassium Chloride Carbon Dioxide BUN 34 H Creatinine Glucose 169 H POC Glucose 141 H Lactic Acid Calcium Phosphorus Magnesium AST ALT Lactate Dehydrogenase Total Bilirubin Direct Bilirubin CK-MB (CK-2) C-Reactive Protein NT-Pro-B Natriuret Pep Total Protein Albumin Arterial Blood Glucose Urine WBC (Auto) Urine Creatinine Digoxin 12/31/19 01/01/20 01/01/20 23:51 05:17 10:40 WBC RBC Hgb Hct MCHC RDW MCV MCH Lymph % (Auto) [place] % (Auto) [place] # Eos # Lymph # (Auto) [place] # (Auto) Eos # (Auto) Seg Neutrophils % Seg Neuts % (Manual) Baso # (Auto) Lymphocytes % (Manual) Monocytes % (Manual) Eosinophils % (Manual) Basophils % (Manual) Seg Neutrophils # Seg Neutrophils # Man Lymphocytes # (Manual) Monocytes # (Manual) Eosinophils # (Manual) Nucleated RBC % Basophils # (Manual) PT INR APTT Heparin Anti-Xa Level ABG pH POC ABG pO2 ABG pO2 ABG HCO3 ABG O2 Saturation ABG Base Excess POC ABG pCO2 ABG Hemoglobin ABG Oxyhemoglobin ABG Sodium ABG Chloride ABG Glucose Oxyhemoglobin Sodium Potassium Chloride Carbon Dioxide BUN 31 H Creatinine 0.7 L Glucose 137 H POC Glucose 131 H 155 H Lactic Acid Calcium Phosphorus Magnesium AST 73 H ALT 97 H Lactate Dehydrogenase Total Bilirubin Direct Bilirubin CK-MB (CK-2) C-Reactive Protein NT-Pro-B Natriuret Pep 3866 H Total Protein Albumin 2.8 L Arterial Blood Glucose Urine WBC (Auto) Urine Creatinine Digoxin 01/01/20 01/01/20 01/01/20 12:26 15:33 17:53 WBC 14.3 H RBC 3.35 L Hgb 9.1 L Hct 28.8 L MCHC RDW 17.0 H MCV MCH 27 L Lymph % (Auto) 7.0 L [place] % (Auto) 7.6 H [place] # Eos # Lymph # (Auto) 1.0 L [place] # (Auto) 1.1 H Eos # (Auto) Seg Neutrophils % 83.3 H Seg Neuts % (Manual) Baso # (Auto) Lymphocytes % (Manual) Monocytes % (Manual) Eosinophils % (Manual) Basophils % (Manual) Seg Neutrophils # 12.0 H Seg Neutrophils # Man Lymphocytes # (Manual) Monocytes # (Manual) Eosinophils # (Manual) Nucleated RBC % Basophils # (Manual) PT INR APTT Heparin Anti-Xa Level ABG pH POC ABG pO2 ABG pO2 ABG HCO3 ABG O2 Saturation ABG Base Excess POC ABG pCO2 ABG Hemoglobin ABG Oxyhemoglobin ABG Sodium ABG Chloride ABG Glucose Oxyhemoglobin Sodium Potassium Chloride Carbon Dioxide BUN Creatinine Glucose POC Glucose 128 H 128 H Lactic Acid Calcium Phosphorus Magnesium AST ALT Lactate Dehydrogenase Total Bilirubin Direct Bilirubin CK-MB (CK-2) C-Reactive Protein NT-Pro-B Natriuret Pep Total Protein Albumin Arterial Blood Glucose Urine WBC (Auto) Urine Creatinine Digoxin 01/01/20 01/02/20 01/02/20 23:04 05:39 07:00 WBC RBC Hgb Hct MCHC RDW MCV MCH Lymph % (Auto) [place] % (Auto) [place] # Eos # Lymph # (Auto) [place] # (Auto) Eos # (Auto) Seg Neutrophils % Seg Neuts % (Manual) Baso # (Auto) Lymphocytes % (Manual) Monocytes % (Manual) Eosinophils % (Manual) Basophils % (Manual) Seg Neutrophils # Seg Neutrophils # Man Lymphocytes # (Manual) Monocytes # (Manual) Eosinophils # (Manual) Nucleated RBC % Basophils # (Manual) PT INR APTT Heparin Anti-Xa Level 0.13 L ABG pH POC ABG pO2 ABG pO2 ABG HCO3 ABG O2 Saturation ABG Base Excess POC ABG pCO2 ABG Hemoglobin ABG Oxyhemoglobin ABG Sodium ABG Chloride ABG Glucose Oxyhemoglobin Sodium Potassium Chloride Carbon Dioxide BUN Creatinine Glucose POC Glucose 120 H 169 H Lactic Acid Calcium Phosphorus Magnesium AST ALT Lactate Dehydrogenase Total Bilirubin Direct Bilirubin CK-MB (CK-2) C-Reactive Protein NT-Pro-B Natriuret Pep Total Protein Albumin Arterial Blood Glucose Urine WBC (Auto) Urine Creatinine Digoxin 01/02/20 01/02/20 01/02/20 12:15 14:06 17:58 WBC RBC Hgb Hct MCHC RDW MCV MCH Lymph % (Auto) [place] % (Auto) [place] # Eos # Lymph # (Auto) [place] # (Auto) Eos # (Auto) Seg Neutrophils % Seg Neuts % (Manual) Baso # (Auto) Lymphocytes % (Manual) Monocytes % (Manual) Eosinophils % (Manual) Basophils % (Manual) Seg Neutrophils # Seg Neutrophils # Man Lymphocytes # (Manual) Monocytes # (Manual) Eosinophils # (Manual) Nucleated RBC % Basophils # (Manual) PT INR APTT Heparin Anti-Xa Level < 0.10 L ABG pH POC ABG pO2 ABG pO2 ABG HCO3 ABG O2 Saturation ABG Base Excess POC ABG pCO2 ABG Hemoglobin ABG Oxyhemoglobin ABG Sodium ABG Chloride ABG Glucose Oxyhemoglobin Sodium Potassium Chloride Carbon Dioxide BUN Creatinine Glucose POC Glucose 190 H 198 H Lactic Acid Calcium Phosphorus Magnesium AST ALT Lactate Dehydrogenase Total Bilirubin Direct Bilirubin CK-MB (CK-2) C-Reactive Protein NT-Pro-B Natriuret Pep Total Protein Albumin Arterial Blood Glucose Urine WBC (Auto) Urine Creatinine Digoxin 01/02/20 01/02/20 01/03/20 21:43 23:33 05:42 WBC RBC Hgb Hct MCHC RDW MCV MCH Lymph % (Auto) [place] % (Auto) [place] # Eos # Lymph # (Auto) [place] # (Auto) Eos # (Auto) Seg Neutrophils % Seg Neuts % (Manual) Baso # (Auto) Lymphocytes % (Manual) Monocytes % (Manual) Eosinophils % (Manual) Basophils % (Manual) Seg Neutrophils # Seg Neutrophils # Man Lymphocytes # (Manual) Monocytes # (Manual) Eosinophils # (Manual) Nucleated RBC % Basophils # (Manual) PT INR APTT Heparin Anti-Xa Level 0.10 L ABG pH POC ABG pO2 ABG pO2 ABG HCO3 ABG O2 Saturation ABG Base Excess POC ABG pCO2 ABG Hemoglobin ABG Oxyhemoglobin ABG Sodium ABG Chloride ABG Glucose Oxyhemoglobin Sodium Potassium Chloride Carbon Dioxide BUN Creatinine Glucose POC Glucose 180 H 163 H Lactic Acid Calcium Phosphorus Magnesium AST ALT Lactate Dehydrogenase Total Bilirubin Direct Bilirubin CK-MB (CK-2) C-Reactive Protein NT-Pro-B Natriuret Pep Total Protein Albumin Arterial Blood Glucose Urine WBC (Auto) Urine Creatinine Digoxin 01/03/20 01/03/20 01/03/20 06:50 07:25 07:45 WBC 12.1 H RBC 3.35 L Hgb 9.0 L Hct 28.9 L MCHC 31 L RDW 16.6 H MCV MCH 27 L Lymph % (Auto) 13.0 L [place] % (Auto) 8.6 H [place] # Eos # Lymph # (Auto) [place] # (Auto) 1.0 H Eos # (Auto) Seg Neutrophils % 75.9 H Seg Neuts % (Manual) Baso # (Auto) Lymphocytes % (Manual) Monocytes % (Manual) Eosinophils % (Manual) Basophils % (Manual) Seg Neutrophils # 9.2 H Seg Neutrophils # Man Lymphocytes # (Manual) Monocytes # (Manual) Eosinophils # (Manual) Nucleated RBC % Basophils # (Manual) PT INR APTT Heparin Anti-Xa Level 0.29 L ABG pH POC ABG pO2 ABG pO2 ABG HCO3 ABG O2 Saturation ABG Base Excess POC ABG pCO2 ABG Hemoglobin ABG Oxyhemoglobin ABG Sodium ABG Chloride ABG Glucose Oxyhemoglobin Sodium Potassium 3.3 L D Chloride Carbon Dioxide 35 H D BUN 23 H Creatinine 0.6 L Glucose 149 H POC Glucose Lactic Acid Calcium Phosphorus Magnesium AST ALT 88 H Lactate Dehydrogenase Total Bilirubin Direct Bilirubin CK-MB (CK-2) C-Reactive Protein NT-Pro-B Natriuret Pep Total Protein 6.2 L Albumin 2.9 L Arterial Blood Glucose Urine WBC (Auto) Urine Creatinine Digoxin 01/03/20 01/03/20 01/03/20 12:05 17:42 18:30 WBC RBC Hgb Hct MCHC RDW MCV MCH Lymph % (Auto) [place] % (Auto) [place] # Eos # Lymph # (Auto) [place] # (Auto) Eos # (Auto) Seg Neutrophils % Seg Neuts % (Manual) Baso # (Auto) Lymphocytes % (Manual) Monocytes % (Manual) Eosinophils % (Manual) Basophils % (Manual) Seg Neutrophils # Seg Neutrophils # Man Lymphocytes # (Manual) Monocytes # (Manual) Eosinophils # (Manual) Nucleated RBC % Basophils # (Manual) PT INR APTT Heparin Anti-Xa Level ABG pH POC ABG pO2 ABG pO2 70.7 L ABG HCO3 36.1 H ABG O2 Saturation 94.4 L ABG Base Excess 10.0 H POC ABG pCO2 ABG Hemoglobin 9.7 L ABG Oxyhemoglobin ABG Sodium ABG Chloride ABG Glucose Oxyhemoglobin 91.8 L Sodium Potassium Chloride Carbon Dioxide BUN Creatinine Glucose POC Glucose 128 H 132 H Lactic Acid Calcium Phosphorus Magnesium AST ALT Lactate Dehydrogenase Total Bilirubin Direct Bilirubin CK-MB (CK-2) C-Reactive Protein NT-Pro-B Natriuret Pep Total Protein Albumin Arterial Blood Glucose Urine WBC (Auto) Urine Creatinine Digoxin 01/04/20 01/04/20 01/04/20 00:10 04:26 05:23 WBC RBC Hgb Hct MCHC RDW MCV MCH Lymph % (Auto) [place] % (Auto) [place] # Eos # Lymph # (Auto) [place] # (Auto) Eos # (Auto) Seg Neutrophils % Seg Neuts % (Manual) Baso # (Auto) Lymphocytes % (Manual) Monocytes % (Manual) Eosinophils % (Manual) Basophils % (Manual) Seg Neutrophils # Seg Neutrophils # Man Lymphocytes # (Manual) Monocytes # (Manual) Eosinophils # (Manual) Nucleated RBC % Basophils # (Manual) PT INR APTT Heparin Anti-Xa Level 0.16 L ABG pH POC ABG pO2 ABG pO2 ABG HCO3 ABG O2 Saturation ABG Base Excess POC ABG pCO2 ABG Hemoglobin ABG Oxyhemoglobin ABG Sodium ABG Chloride ABG Glucose Oxyhemoglobin Sodium Potassium Chloride Carbon Dioxide BUN Creatinine Glucose POC Glucose 121 H 119 H Lactic Acid Calcium Phosphorus Magnesium AST ALT Lactate Dehydrogenase Total Bilirubin Direct Bilirubin CK-MB (CK-2) C-Reactive Protein NT-Pro-B Natriuret Pep Total Protein Albumin Arterial Blood Glucose Urine WBC (Auto) Urine Creatinine Digoxin 01/04/20 01/04/20 01/04/20 09:50 09:50 12:18 WBC 15.4 H RBC 3.30 L Hgb 8.7 L Hct 28.2 L MCHC 31 L RDW 17.0 H MCV MCH 26 L Lymph % (Auto) [place] % (Auto) 7.6 H [place] # Eos # Lymph # (Auto) [place] # (Auto) 1.2 H Eos # (Auto) Seg Neutrophils % 75.4 H Seg Neuts % (Manual) Baso # (Auto) Lymphocytes % (Manual) Monocytes % (Manual) Eosinophils % (Manual) Basophils % (Manual) Seg Neutrophils # 11.6 H Seg Neutrophils # Man Lymphocytes # (Manual) Monocytes # (Manual) Eosinophils # (Manual) Nucleated RBC % Basophils # (Manual) PT INR APTT Heparin Anti-Xa Level ABG pH POC ABG pO2 ABG pO2 ABG HCO3 ABG O2 Saturation ABG Base Excess POC ABG pCO2 ABG Hemoglobin ABG Oxyhemoglobin ABG Sodium ABG Chloride ABG Glucose Oxyhemoglobin Sodium 148 H Potassium 3.5 L Chloride Carbon Dioxide 32 H BUN Creatinine 0.6 L Glucose 114 H POC Glucose 111 H Lactic Acid Calcium Phosphorus Magnesium AST ALT 59 H Lactate Dehydrogenase Total Bilirubin Direct Bilirubin CK-MB (CK-2) C-Reactive Protein NT-Pro-B Natriuret Pep Total Protein Albumin 2.6 L Arterial Blood Glucose Urine WBC (Auto) Urine Creatinine Digoxin 01/05/20 01/05/20 01/05/20 04:05 04:05 05:19 WBC 11.7 H RBC 3.50 L Hgb 9.3 L Hct 29.9 L MCHC 31 L RDW 16.6 H MCV MCH 27 L Lymph % (Auto) 13.1 L [place] % (Auto) 9.7 H [place] # Eos # Lymph # (Auto) [place] # (Auto) 1.1 H Eos # (Auto) Seg Neutrophils % 74.0 H Seg Neuts % (Manual) Baso # (Auto) Lymphocytes % (Manual) Monocytes % (Manual) Eosinophils % (Manual) Basophils % (Manual) Seg Neutrophils # 8.6 H Seg Neutrophils # Man Lymphocytes # (Manual) Monocytes # (Manual) Eosinophils # (Manual) Nucleated RBC % Basophils # (Manual) PT INR APTT Heparin Anti-Xa Level ABG pH POC ABG pO2 ABG pO2 ABG HCO3 ABG O2 Saturation ABG Base Excess POC ABG pCO2 ABG Hemoglobin ABG Oxyhemoglobin ABG Sodium ABG Chloride ABG Glucose Oxyhemoglobin Sodium 151 H Potassium Chloride Carbon Dioxide 34 H BUN Creatinine 0.7 L Glucose POC Glucose 112 H Lactic Acid Calcium Phosphorus Magnesium AST ALT 59 H Lactate Dehydrogenase Total Bilirubin Direct Bilirubin CK-MB (CK-2) C-Reactive Protein NT-Pro-B Natriuret Pep Total Protein 5.8 L Albumin 2.6 L Arterial Blood Glucose Urine WBC (Auto) Urine Creatinine Digoxin 01/05/20 01/06/20 01/06/20 16:04 00:23 04:44 WBC RBC 3.36 L Hgb 8.9 L Hct 28.7 L MCHC 31 L RDW 16.9 H MCV MCH 26 L Lymph % (Auto) [place] % (Auto) 9.4 H [place] # Eos # Lymph # (Auto) [place] # (Auto) Eos # (Auto) Seg Neutrophils % Seg Neuts % (Manual) Baso # (Auto) Lymphocytes % (Manual) Monocytes % (Manual) Eosinophils % (Manual) Basophils % (Manual) Seg Neutrophils # Seg Neutrophils # Man Lymphocytes # (Manual) Monocytes # (Manual) Eosinophils # (Manual) Nucleated RBC % Basophils # (Manual) PT INR APTT Heparin Anti-Xa Level ABG pH POC ABG pO2 ABG pO2 ABG HCO3 ABG O2 Saturation ABG Base Excess POC ABG pCO2 ABG Hemoglobin ABG Oxyhemoglobin ABG Sodium ABG Chloride ABG Glucose Oxyhemoglobin Sodium 151 H Potassium 3.2 L Chloride Carbon Dioxide 34 H BUN Creatinine 0.6 L Glucose POC Glucose 107 H Lactic Acid Calcium Phosphorus Magnesium AST ALT Lactate Dehydrogenase Total Bilirubin Direct Bilirubin CK-MB (CK-2) C-Reactive Protein NT-Pro-B Natriuret Pep Total Protein Albumin Arterial Blood Glucose Urine WBC (Auto) Urine Creatinine Digoxin 01/06/20 01/06/20 01/06/20 04:44 05:33 12:04 WBC RBC Hgb Hct MCHC RDW MCV MCH Lymph % (Auto) [place] % (Auto) [place] # Eos # Lymph # (Auto) [place] # (Auto) Eos # (Auto) Seg Neutrophils % Seg Neuts % (Manual) Baso # (Auto) Lymphocytes % (Manual) Monocytes % (Manual) Eosinophils % (Manual) Basophils % (Manual) Seg Neutrophils # Seg Neutrophils # Man Lymphocytes # (Manual) Monocytes # (Manual) Eosinophils # (Manual) Nucleated RBC % Basophils # (Manual) PT INR APTT Heparin Anti-Xa Level ABG pH POC ABG pO2 ABG pO2 ABG HCO3 ABG O2 Saturation ABG Base Excess POC ABG pCO2 ABG Hemoglobin ABG Oxyhemoglobin ABG Sodium ABG Chloride ABG Glucose Oxyhemoglobin Sodium 151 H Potassium 3.4 L Chloride Carbon Dioxide 33 H BUN Creatinine 0.6 L Glucose 118 H POC Glucose 118 H 123 H Lactic Acid Calcium Phosphorus Magnesium AST ALT Lactate Dehydrogenase Total Bilirubin Direct Bilirubin CK-MB (CK-2) C-Reactive Protein NT-Pro-B Natriuret Pep Total Protein 6.2 L Albumin 2.6 L Arterial Blood Glucose Urine WBC (Auto) Urine Creatinine Digoxin 01/06/20 01/07/20 01/07/20 17:54 00:06 04:10 WBC RBC 3.42 L Hgb 8.9 L Hct 29.0 L MCHC 31 L RDW 17.1 H MCV MCH 26 L Lymph % (Auto) [place] % (Auto) 8.4 H [place] # Eos # Lymph # (Auto) [place] # (Auto) Eos # (Auto) Seg Neutrophils % Seg Neuts % (Manual) Baso # (Auto) Lymphocytes % (Manual) Monocytes % (Manual) Eosinophils % (Manual) Basophils % (Manual) Seg Neutrophils # Seg Neutrophils # Man Lymphocytes # (Manual) Monocytes # (Manual) Eosinophils # (Manual) Nucleated RBC % Basophils # (Manual) PT INR APTT Heparin Anti-Xa Level ABG pH POC ABG pO2 ABG pO2 ABG HCO3 ABG O2 Saturation ABG Base Excess POC ABG pCO2 ABG Hemoglobin ABG Oxyhemoglobin ABG Sodium ABG Chloride ABG Glucose Oxyhemoglobin Sodium Potassium Chloride Carbon Dioxide BUN Creatinine Glucose POC Glucose 112 H 126 H Lactic Acid Calcium Phosphorus Magnesium AST ALT Lactate Dehydrogenase Total Bilirubin Direct Bilirubin CK-MB (CK-2) C-Reactive Protein NT-Pro-B Natriuret Pep Total Protein Albumin Arterial Blood Glucose Urine WBC (Auto) Urine Creatinine Digoxin 01/07/20 01/07/20 01/07/20 04:10 05:59 12:27 WBC RBC Hgb Hct MCHC RDW MCV MCH Lymph % (Auto) [place] % (Auto) [place] # Eos # Lymph # (Auto) [place] # (Auto) Eos # (Auto) Seg Neutrophils % Seg Neuts % (Manual) Baso # (Auto) Lymphocytes % (Manual) Monocytes % (Manual) Eosinophils % (Manual) Basophils % (Manual) Seg Neutrophils # Seg Neutrophils # Man Lymphocytes # (Manual) Monocytes # (Manual) Eosinophils # (Manual) Nucleated RBC % Basophils # (Manual) PT INR APTT Heparin Anti-Xa Level ABG pH POC ABG pO2 ABG pO2 ABG HCO3 ABG O2 Saturation ABG Base Excess POC ABG pCO2 ABG Hemoglobin ABG Oxyhemoglobin ABG Sodium ABG Chloride ABG Glucose Oxyhemoglobin Sodium 153 H Potassium 3.5 L Chloride Carbon Dioxide 34 H BUN Creatinine 0.6 L Glucose 121 H POC Glucose 121 H 126 H Lactic Acid Calcium Phosphorus Magnesium AST ALT Lactate Dehydrogenase Total Bilirubin Direct Bilirubin CK-MB (CK-2) C-Reactive Protein NT-Pro-B Natriuret Pep Total Protein 5.9 L Albumin 2.4 L Arterial Blood Glucose Urine WBC (Auto) Urine Creatinine Digoxin 01/07/20 01/08/20 01/08/20 18:12 00:03 05:41 WBC RBC Hgb Hct MCHC RDW MCV MCH Lymph % (Auto) [place] % (Auto) [place] # Eos # Lymph # (Auto) [place] # (Auto) Eos # (Auto) Seg Neutrophils % Seg Neuts % (Manual) Baso # (Auto) Lymphocytes % (Manual) Monocytes % (Manual) Eosinophils % (Manual) Basophils % (Manual) Seg Neutrophils # Seg Neutrophils # Man Lymphocytes # (Manual) Monocytes # (Manual) Eosinophils # (Manual) Nucleated RBC % Basophils # (Manual) PT INR APTT Heparin Anti-Xa Level ABG pH POC ABG pO2 ABG pO2 ABG HCO3 ABG O2 Saturation ABG Base Excess POC ABG pCO2 ABG Hemoglobin ABG Oxyhemoglobin ABG Sodium ABG Chloride ABG Glucose Oxyhemoglobin Sodium Potassium Chloride Carbon Dioxide BUN Creatinine Glucose POC Glucose 124 H 130 H 138 H Lactic Acid Calcium Phosphorus Magnesium AST ALT Lactate Dehydrogenase Total Bilirubin Direct Bilirubin CK-MB (CK-2) C-Reactive Protein NT-Pro-B Natriuret Pep Total Protein Albumin Arterial Blood Glucose Urine WBC (Auto) Urine Creatinine Digoxin 01/08/20 01/08/20 01/08/20 09:28 11:42 18:21 WBC RBC Hgb Hct MCHC RDW MCV MCH Lymph % (Auto) [place] % (Auto) [place] # Eos # Lymph # (Auto) [place] # (Auto) Eos # (Auto) Seg Neutrophils % Seg Neuts % (Manual) Baso # (Auto) Lymphocytes % (Manual) Monocytes % (Manual) Eosinophils % (Manual) Basophils % (Manual) Seg Neutrophils # Seg Neutrophils # Man Lymphocytes # (Manual) Monocytes # (Manual) Eosinophils # (Manual) Nucleated RBC % Basophils # (Manual) PT INR APTT Heparin Anti-Xa Level ABG pH POC ABG pO2 ABG pO2 ABG HCO3 ABG O2 Saturation ABG Base Excess POC ABG pCO2 ABG Hemoglobin ABG Oxyhemoglobin ABG Sodium ABG Chloride ABG Glucose Oxyhemoglobin Sodium Potassium Chloride Carbon Dioxide BUN Creatinine Glucose POC Glucose 181 H 150 H 129 H Lactic Acid Calcium Phosphorus Magnesium AST ALT Lactate Dehydrogenase Total Bilirubin Direct Bilirubin CK-MB (CK-2) C-Reactive Protein NT-Pro-B Natriuret Pep Total Protein Albumin Arterial Blood Glucose Urine WBC (Auto) Urine Creatinine Digoxin 01/08/20 01/08/20 01/09/20 19:25 23:55 04:11 WBC RBC 3.43 L Hgb 8.9 L Hct 28.7 L MCHC 31 L RDW 17.6 H MCV MCH 26 L Lymph % (Auto) [place] % (Auto) 8.6 H [place] # Eos # Lymph # (Auto) [place] # (Auto) Eos # (Auto) Seg Neutrophils % Seg Neuts % (Manual) Baso # (Auto) Lymphocytes % (Manual) Monocytes % (Manual) Eosinophils % (Manual) Basophils % (Manual) Seg Neutrophils # Seg Neutrophils # Man Lymphocytes # (Manual) Monocytes # (Manual) Eosinophils # (Manual) Nucleated RBC % Basophils # (Manual) PT INR APTT Heparin Anti-Xa Level ABG pH POC ABG pO2 ABG pO2 ABG HCO3 ABG O2 Saturation ABG Base Excess POC ABG pCO2 ABG Hemoglobin ABG Oxyhemoglobin ABG Sodium ABG Chloride ABG Glucose Oxyhemoglobin Sodium Potassium Chloride Carbon Dioxide BUN Creatinine 0.7 L Glucose 117 H POC Glucose 132 H Lactic Acid Calcium Phosphorus Magnesium AST ALT Lactate Dehydrogenase Total Bilirubin Direct Bilirubin CK-MB (CK-2) C-Reactive Protein NT-Pro-B Natriuret Pep Total Protein Albumin Arterial Blood Glucose Urine WBC (Auto) Urine Creatinine Digoxin 01/09/20 01/09/20 01/09/20 04:11 05:38 22:58 WBC RBC Hgb Hct MCHC RDW MCV MCH Lymph % (Auto) [place] % (Auto) [place] # Eos # Lymph # (Auto) [place] # (Auto) Eos # (Auto) Seg Neutrophils % Seg Neuts % (Manual) Baso # (Auto) Lymphocytes % (Manual) Monocytes % (Manual) Eosinophils % (Manual) Basophils % (Manual) Seg Neutrophils # Seg Neutrophils # Man Lymphocytes # (Manual) Monocytes # (Manual) Eosinophils # (Manual) Nucleated RBC % Basophils # (Manual) PT INR APTT Heparin Anti-Xa Level ABG pH POC ABG pO2 ABG pO2 ABG HCO3 ABG O2 Saturation ABG Base Excess POC ABG pCO2 ABG Hemoglobin ABG Oxyhemoglobin ABG Sodium ABG Chloride ABG Glucose Oxyhemoglobin Sodium 147 H Potassium 3.3 L D Chloride Carbon Dioxide 32 H BUN Creatinine 0.6 L Glucose 106 H POC Glucose 107 H 113 H Lactic Acid Calcium Phosphorus Magnesium AST ALT Lactate Dehydrogenase Total Bilirubin Direct Bilirubin CK-MB (CK-2) C-Reactive Protein NT-Pro-B Natriuret Pep Total Protein Albumin Arterial Blood Glucose Urine WBC (Auto) Urine Creatinine Digoxin 01/10/20 01/10/20 01/10/20 04:05 11:36 17:54 WBC RBC Hgb Hct MCHC RDW MCV MCH Lymph % (Auto) [place] % (Auto) [place] # Eos # Lymph # (Auto) [place] # (Auto) Eos # (Auto) Seg Neutrophils % Seg Neuts % (Manual) Baso # (Auto) Lymphocytes % (Manual) Monocytes % (Manual) Eosinophils % (Manual) Basophils % (Manual) Seg Neutrophils # Seg Neutrophils # Man Lymphocytes # (Manual) Monocytes # (Manual) Eosinophils # (Manual) Nucleated RBC % Basophils # (Manual) PT INR APTT Heparin Anti-Xa Level ABG pH POC ABG pO2 ABG pO2 ABG HCO3 ABG O2 Saturation ABG Base Excess POC ABG pCO2 ABG Hemoglobin ABG Oxyhemoglobin ABG Sodium ABG Chloride ABG Glucose Oxyhemoglobin Sodium Potassium Chloride Carbon Dioxide BUN Creatinine 0.7 L Glucose 110 H POC Glucose 129 H 117 H Lactic Acid Calcium Phosphorus Magnesium AST ALT Lactate Dehydrogenase Total Bilirubin Direct Bilirubin CK-MB (CK-2) C-Reactive Protein NT-Pro-B Natriuret Pep Total Protein Albumin Arterial Blood Glucose Urine WBC (Auto) Urine Creatinine Digoxin 01/10/20 01/11/20 01/11/20 23:52 03:19 12:09 WBC RBC Hgb Hct MCHC RDW MCV MCH Lymph % (Auto) [place] % (Auto) [place] # Eos # Lymph # (Auto) [place] # (Auto) Eos # (Auto) Seg Neutrophils % Seg Neuts % (Manual) Baso # (Auto) Lymphocytes % (Manual) Monocytes % (Manual) Eosinophils % (Manual) Basophils % (Manual) Seg Neutrophils # Seg Neutrophils # Man Lymphocytes # (Manual) Monocytes # (Manual) Eosinophils # (Manual) Nucleated RBC % Basophils # (Manual) PT INR APTT Heparin Anti-Xa Level ABG pH POC ABG pO2 ABG pO2 ABG HCO3 ABG O2 Saturation ABG Base Excess POC ABG pCO2 ABG Hemoglobin ABG Oxyhemoglobin ABG Sodium ABG Chloride ABG Glucose Oxyhemoglobin Sodium Potassium Chloride Carbon Dioxide BUN Creatinine Glucose POC Glucose 117 H 136 H 115 H Lactic Acid Calcium Phosphorus Magnesium AST ALT Lactate Dehydrogenase Total Bilirubin Direct Bilirubin CK-MB (CK-2) C-Reactive Protein NT-Pro-B Natriuret Pep Total Protein Albumin Arterial Blood Glucose Urine WBC (Auto) Urine Creatinine Digoxin 01/11/20 01/11/20 01/12/20 18:27 23:28 00:23 WBC RBC Hgb 9.8 L Hct 31.6 L MCHC 31 L RDW 17.8 H MCV 83 L MCH 26 L Lymph % (Auto) [place] % (Auto) 8.0 H [place] # Eos # Lymph # (Auto) [place] # (Auto) Eos # (Auto) Seg Neutrophils % Seg Neuts % (Manual) Baso # (Auto) Lymphocytes % (Manual) Monocytes % (Manual) Eosinophils % (Manual) Basophils % (Manual) Seg Neutrophils # Seg Neutrophils # Man Lymphocytes # (Manual) Monocytes # (Manual) Eosinophils # (Manual) Nucleated RBC % Basophils # (Manual) PT INR APTT Heparin Anti-Xa Level ABG pH POC ABG pO2 ABG pO2 ABG HCO3 ABG O2 Saturation ABG Base Excess POC ABG pCO2 ABG Hemoglobin ABG Oxyhemoglobin ABG Sodium ABG Chloride ABG Glucose Oxyhemoglobin Sodium Potassium Chloride Carbon Dioxide BUN Creatinine Glucose POC Glucose 118 H 122 H Lactic Acid Calcium Phosphorus Magnesium AST ALT Lactate Dehydrogenase Total Bilirubin Direct Bilirubin CK-MB (CK-2) C-Reactive Protein NT-Pro-B Natriuret Pep Total Protein Albumin Arterial Blood Glucose Urine WBC (Auto) Urine Creatinine Digoxin 01/12/20 01/12/20 01/12/20 00:23 04:18 04:18 WBC RBC Hgb 9.6 L Hct 30.9 L MCHC 31 L RDW 17.3 H MCV 81 L MCH 25 L Lymph % (Auto) [place] % (Auto) [place] # Eos # Lymph # (Auto) [place] # (Auto) Eos # (Auto) Seg Neutrophils % Seg Neuts % (Manual) Baso # (Auto) Lymphocytes % (Manual) Monocytes % (Manual) Eosinophils % (Manual) Basophils % (Manual) Seg Neutrophils # Seg Neutrophils # Man Lymphocytes # (Manual) Monocytes # (Manual) Eosinophils # (Manual) Nucleated RBC % Basophils # (Manual) PT INR APTT Heparin Anti-Xa Level ABG pH POC ABG pO2 ABG pO2 ABG HCO3 ABG O2 Saturation ABG Base Excess POC ABG pCO2 ABG Hemoglobin ABG Oxyhemoglobin ABG Sodium ABG Chloride ABG Glucose Oxyhemoglobin Sodium Potassium Chloride Carbon Dioxide BUN Creatinine 0.7 L 0.7 L Glucose 111 H 108 H POC Glucose Lactic Acid Calcium Phosphorus Magnesium AST ALT Lactate Dehydrogenase Total Bilirubin Direct Bilirubin CK-MB (CK-2) C-Reactive Protein NT-Pro-B Natriuret Pep Total Protein Albumin 2.6 L Arterial Blood Glucose Urine WBC (Auto) Urine Creatinine Digoxin 10/20/20 10/20/20 10/20/20 06:03 12:27 13:58 WBC RBC Hgb Hct MCHC RDW MCV MCH Lymph % (Auto) [place] % (Auto) [place] # Eos # Lymph # (Auto) [place] # (Auto) Eos # (Auto) Seg Neutrophils % Seg Neuts % (Manual) Baso # (Auto) Lymphocytes % (Manual) Monocytes % (Manual) Eosinophils % (Manual) Basophils % (Manual) Seg Neutrophils # Seg Neutrophils # Man Lymphocytes # (Manual) Monocytes # (Manual) Eosinophils # (Manual) Nucleated RBC % Basophils # (Manual) PT INR APTT Heparin Anti-Xa Level ABG pH 7.453 H POC ABG pO2 76.6 L ABG pO2 ABG HCO3 ABG O2 Saturation ABG Base Excess POC ABG pCO2 ABG Hemoglobin 10.3 L ABG Oxyhemoglobin ABG Sodium ABG Chloride ABG Glucose 99 H Oxyhemoglobin Sodium Potassium Chloride Carbon Dioxide BUN Creatinine Glucose POC Glucose 128 H 121 H Lactic Acid Calcium Phosphorus Magnesium AST ALT Lactate Dehydrogenase Total Bilirubin Direct Bilirubin CK-MB (CK-2) C-Reactive Protein NT-Pro-B Natriuret Pep Total Protein Albumin Arterial Blood Glucose 99 H Urine WBC (Auto) Urine Creatinine Digoxin 01/12/20 01/13/20 01/13/20 18:24 12:01 17:46 WBC RBC Hgb Hct MCHC RDW MCV MCH Lymph % (Auto) [place] % (Auto) [place] # Eos # Lymph # (Auto) [place] # (Auto) Eos # (Auto) Seg Neutrophils % Seg Neuts % (Manual) Baso # (Auto) Lymphocytes % (Manual) Monocytes % (Manual) Eosinophils % (Manual) Basophils % (Manual) Seg Neutrophils # Seg Neutrophils # Man Lymphocytes # (Manual) Monocytes # (Manual) Eosinophils # (Manual) Nucleated RBC % Basophils # (Manual) PT INR APTT Heparin Anti-Xa Level ABG pH POC ABG pO2 ABG pO2 ABG HCO3 ABG O2 Saturation ABG Base Excess POC ABG pCO2 ABG Hemoglobin ABG Oxyhemoglobin ABG Sodium ABG Chloride ABG Glucose Oxyhemoglobin Sodium Potassium Chloride Carbon Dioxide BUN Creatinine Glucose POC Glucose 119 H 107 H 124 H Lactic Acid Calcium Phosphorus Magnesium AST ALT Lactate Dehydrogenase Total Bilirubin Direct Bilirubin CK-MB (CK-2) C-Reactive Protein NT-Pro-B Natriuret Pep Total Protein Albumin Arterial Blood Glucose Urine WBC (Auto) Urine Creatinine Digoxin 01/13/20 01/14/20 01/14/20 20:40 00:10 05:33 WBC RBC Hgb Hct MCHC RDW MCV MCH Lymph % (Auto) [place] % (Auto) [place] # Eos # Lymph # (Auto) [place] # (Auto) Eos # (Auto) Seg Neutrophils % Seg Neuts % (Manual) Baso # (Auto) Lymphocytes % (Manual) Monocytes % (Manual) Eosinophils % (Manual) Basophils % (Manual) Seg Neutrophils # Seg Neutrophils # Man Lymphocytes # (Manual) Monocytes # (Manual) Eosinophils # (Manual) Nucleated RBC % Basophils # (Manual) PT INR APTT Heparin Anti-Xa Level ABG pH POC ABG pO2 ABG pO2 65.3 L ABG HCO3 31.8 H ABG O2 Saturation 93.5 L ABG Base Excess 6.7 H POC ABG pCO2 ABG Hemoglobin 13.3 L ABG Oxyhemoglobin ABG Sodium ABG Chloride ABG Glucose Oxyhemoglobin 90.9 L Sodium Potassium Chloride Carbon Dioxide BUN Creatinine Glucose POC Glucose 111 H 111 H Lactic Acid Calcium Phosphorus Magnesium AST ALT Lactate Dehydrogenase Total Bilirubin Direct Bilirubin CK-MB (CK-2) C-Reactive Protein NT-Pro-B Natriuret Pep Total Protein Albumin Arterial Blood Glucose Urine WBC (Auto) Urine Creatinine Digoxin 01/14/20 01/14/20 01/14/20 12:10 16:14 16:14 WBC RBC Hgb 10.6 L Hct 34.2 L MCHC 31 L RDW 18.3 H MCV 83 L MCH 26 L Lymph % (Auto) [place] % (Auto) 7.4 H [place] # Eos # Lymph # (Auto) [place] # (Auto) Eos # (Auto) Seg Neutrophils % 71.9 H Seg Neuts % (Manual) Baso # (Auto) Lymphocytes % (Manual) Monocytes % (Manual) Eosinophils % (Manual) Basophils % (Manual) Seg Neutrophils # Seg Neutrophils # Man Lymphocytes # (Manual) Monocytes # (Manual) Eosinophils # (Manual) Nucleated RBC % Basophils # (Manual) PT INR APTT Heparin Anti-Xa Level ABG pH POC ABG pO2 ABG pO2 ABG HCO3 ABG O2 Saturation ABG Base Excess POC ABG pCO2 ABG Hemoglobin ABG Oxyhemoglobin ABG Sodium ABG Chloride ABG Glucose Oxyhemoglobin Sodium Potassium Chloride Carbon Dioxide 31 H BUN Creatinine 0.6 L Glucose 131 H POC Glucose 139 H Lactic Acid Calcium Phosphorus Magnesium AST ALT Lactate Dehydrogenase Total Bilirubin Direct Bilirubin CK-MB (CK-2) C-Reactive Protein NT-Pro-B Natriuret Pep Total Protein Albumin Arterial Blood Glucose Urine WBC (Auto) Urine Creatinine Digoxin 01/14/20 01/15/20 01/15/20 18:05 00:52 05:35 WBC RBC Hgb Hct MCHC RDW MCV MCH Lymph % (Auto) [place] % (Auto) [place] # Eos # Lymph # (Auto) [place] # (Auto) Eos # (Auto) Seg Neutrophils % Seg Neuts % (Manual) Baso # (Auto) Lymphocytes % (Manual) Monocytes % (Manual) Eosinophils % (Manual) Basophils % (Manual) Seg Neutrophils # Seg Neutrophils # Man Lymphocytes # (Manual) Monocytes # (Manual) Eosinophils # (Manual) Nucleated RBC % Basophils # (Manual) PT INR APTT Heparin Anti-Xa Level ABG pH POC ABG pO2 ABG pO2 ABG HCO3 ABG O2 Saturation ABG Base Excess POC ABG pCO2 ABG Hemoglobin ABG Oxyhemoglobin ABG Sodium ABG Chloride ABG Glucose Oxyhemoglobin Sodium Potassium Chloride Carbon Dioxide BUN Creatinine Glucose POC Glucose 147 H 140 H 159 H Lactic Acid Calcium Phosphorus Magnesium AST ALT Lactate Dehydrogenase Total Bilirubin Direct Bilirubin CK-MB (CK-2) C-Reactive Protein NT-Pro-B Natriuret Pep Total Protein Albumin Arterial Blood Glucose Urine WBC (Auto) Urine Creatinine Digoxin 01/15/20 01/15/20 01/16/20 12:52 17:43 00:32 WBC RBC Hgb Hct MCHC RDW MCV MCH Lymph % (Auto) [place] % (Auto) [place] # Eos # Lymph # (Auto) [place] # (Auto) Eos # (Auto) Seg Neutrophils % Seg Neuts % (Manual) Baso # (Auto) Lymphocytes % (Manual) Monocytes % (Manual) Eosinophils % (Manual) Basophils % (Manual) Seg Neutrophils # Seg Neutrophils # Man Lymphocytes # (Manual) Monocytes # (Manual) Eosinophils # (Manual) Nucleated RBC % Basophils # (Manual) PT INR APTT Heparin Anti-Xa Level ABG pH POC ABG pO2 ABG pO2 ABG HCO3 ABG O2 Saturation ABG Base Excess POC ABG pCO2 ABG Hemoglobin ABG Oxyhemoglobin ABG Sodium ABG Chloride ABG Glucose Oxyhemoglobin Sodium Potassium Chloride Carbon Dioxide BUN Creatinine Glucose POC Glucose 164 H 167 H 153 H Lactic Acid Calcium Phosphorus Magnesium AST ALT Lactate Dehydrogenase Total Bilirubin Direct Bilirubin CK-MB (CK-2) C-Reactive Protein NT-Pro-B Natriuret Pep Total Protein Albumin Arterial Blood Glucose Urine WBC (Auto) Urine Creatinine Digoxin 01/16/20 01/16/20 01/17/20 05:46 11:48 06:38 WBC RBC Hgb Hct MCHC RDW MCV MCH Lymph % (Auto) [place] % (Auto) [place] # Eos # Lymph # (Auto) [place] # (Auto) Eos # (Auto) Seg Neutrophils % Seg Neuts % (Manual) Baso # (Auto) Lymphocytes % (Manual) Monocytes % (Manual) Eosinophils % (Manual) Basophils % (Manual) Seg Neutrophils # Seg Neutrophils # Man Lymphocytes # (Manual) Monocytes # (Manual) Eosinophils # (Manual) Nucleated RBC % Basophils # (Manual) PT INR APTT Heparin Anti-Xa Level ABG pH POC ABG pO2 ABG pO2 ABG HCO3 ABG O2 Saturation ABG Base Excess POC ABG pCO2 ABG Hemoglobin ABG Oxyhemoglobin ABG Sodium ABG Chloride ABG Glucose Oxyhemoglobin Sodium Potassium Chloride Carbon Dioxide BUN Creatinine Glucose POC Glucose 163 H 155 H 116 H Lactic Acid Calcium Phosphorus Magnesium AST ALT Lactate Dehydrogenase Total Bilirubin Direct Bilirubin CK-MB (CK-2) C-Reactive Protein NT-Pro-B Natriuret Pep Total Protein Albumin Arterial Blood Glucose Urine WBC (Auto) Urine Creatinine Digoxin 01/17/20 01/17/20 01/18/20 11:36 17:43 00:12 WBC RBC Hgb Hct MCHC RDW MCV MCH Lymph % (Auto) [place] % (Auto) [place] # Eos # Lymph # (Auto) [place] # (Auto) Eos # (Auto) Seg Neutrophils % Seg Neuts % (Manual) Baso # (Auto) Lymphocytes % (Manual) Monocytes % (Manual) Eosinophils % (Manual) Basophils % (Manual) Seg Neutrophils # Seg Neutrophils # Man Lymphocytes # (Manual) Monocytes # (Manual) Eosinophils # (Manual) Nucleated RBC % Basophils # (Manual) PT INR APTT Heparin Anti-Xa Level ABG pH POC ABG pO2 ABG pO2 ABG HCO3 ABG O2 Saturation ABG Base Excess POC ABG pCO2 ABG Hemoglobin ABG Oxyhemoglobin ABG Sodium ABG Chloride ABG Glucose Oxyhemoglobin Sodium Potassium Chloride Carbon Dioxide BUN Creatinine Glucose POC Glucose 110 H 134 H 108 H Lactic Acid Calcium Phosphorus Magnesium AST ALT Lactate Dehydrogenase Total Bilirubin Direct Bilirubin CK-MB (CK-2) C-Reactive Protein NT-Pro-B Natriuret Pep Total Protein Albumin Arterial Blood Glucose Urine WBC (Auto) Urine Creatinine Digoxin 01/18/20 01/18/20 01/18/20 05:37 06:46 06:46 WBC RBC Hgb 10.1 L Hct 32.2 L MCHC 31 L RDW 18.1 H MCV 81 L MCH 25 L Lymph % (Auto) [place] % (Auto) [place] # Eos # Lymph # (Auto) [place] # (Auto) Eos # (Auto) Seg Neutrophils % 71.9 H Seg Neuts % (Manual) Baso # (Auto) Lymphocytes % (Manual) Monocytes % (Manual) Eosinophils % (Manual) Basophils % (Manual) Seg Neutrophils # Seg Neutrophils # Man Lymphocytes # (Manual) Monocytes # (Manual) Eosinophils # (Manual) Nucleated RBC % Basophils # (Manual) PT INR APTT Heparin Anti-Xa Level ABG pH POC ABG pO2 ABG pO2 ABG HCO3 ABG O2 Saturation ABG Base Excess POC ABG pCO2 ABG Hemoglobin ABG Oxyhemoglobin ABG Sodium ABG Chloride ABG Glucose Oxyhemoglobin Sodium Potassium Chloride Carbon Dioxide BUN Creatinine 0.7 L Glucose 155 H POC Glucose 168 H Lactic Acid Calcium Phosphorus Magnesium AST ALT Lactate Dehydrogenase Total Bilirubin Direct Bilirubin CK-MB (CK-2) C-Reactive Protein NT-Pro-B Natriuret Pep Total Protein Albumin Arterial Blood Glucose Urine WBC (Auto) Urine Creatinine Digoxin 01/18/20 01/18/20 01/18/20 12:05 17:14 23:28 WBC RBC Hgb Hct MCHC RDW MCV MCH Lymph % (Auto) [place] % (Auto) [place] # Eos # Lymph # (Auto) [place] # (Auto) Eos # (Auto) Seg Neutrophils % Seg Neuts % (Manual) Baso # (Auto) Lymphocytes % (Manual) Monocytes % (Manual) Eosinophils % (Manual) Basophils % (Manual) Seg Neutrophils # Seg Neutrophils # Man Lymphocytes # (Manual) Monocytes # (Manual) Eosinophils # (Manual) Nucleated RBC % Basophils # (Manual) PT INR APTT Heparin Anti-Xa Level ABG pH POC ABG pO2 ABG pO2 ABG HCO3 ABG O2 Saturation ABG Base Excess POC ABG pCO2 ABG Hemoglobin ABG Oxyhemoglobin ABG Sodium ABG Chloride ABG Glucose Oxyhemoglobin Sodium Potassium Chloride Carbon Dioxide BUN Creatinine Glucose POC Glucose 128 H 126 H 128 H Lactic Acid Calcium Phosphorus Magnesium AST ALT Lactate Dehydrogenase Total Bilirubin Direct Bilirubin CK-MB (CK-2) C-Reactive Protein NT-Pro-B Natriuret Pep Total Protein Albumin Arterial Blood Glucose Urine WBC (Auto) Urine Creatinine Digoxin 01/19/20 01/19/20 01/19/20 05:39 12:33 17:36 WBC RBC Hgb Hct MCHC RDW MCV MCH Lymph % (Auto) [place] % (Auto) [place] # Eos # Lymph # (Auto) [place] # (Auto) Eos # (Auto) Seg Neutrophils % Seg Neuts % (Manual) Baso # (Auto) Lymphocytes % (Manual) Monocytes % (Manual) Eosinophils % (Manual) Basophils % (Manual) Seg Neutrophils # Seg Neutrophils # Man Lymphocytes # (Manual) Monocytes # (Manual) Eosinophils # (Manual) Nucleated RBC % Basophils # (Manual) PT INR APTT Heparin Anti-Xa Level ABG pH POC ABG pO2 ABG pO2 ABG HCO3 ABG O2 Saturation ABG Base Excess POC ABG pCO2 ABG Hemoglobin ABG Oxyhemoglobin ABG Sodium ABG Chloride ABG Glucose Oxyhemoglobin Sodium Potassium Chloride Carbon Dioxide BUN Creatinine Glucose POC Glucose 164 H 171 H 152 H Lactic Acid Calcium Phosphorus Magnesium AST ALT Lactate Dehydrogenase Total Bilirubin Direct Bilirubin CK-MB (CK-2) C-Reactive Protein NT-Pro-B Natriuret Pep Total Protein Albumin Arterial Blood Glucose Urine WBC (Auto) Urine Creatinine Digoxin 01/20/20 01/20/20 01/20/20 00:12 05:20 05:35 WBC RBC Hgb 9.2 L Hct 29.4 L MCHC 31 L RDW 17.9 H MCV 81 L MCH 25 L Lymph % (Auto) [place] % (Auto) [place] # Eos # Lymph # (Auto) [place] # (Auto) Eos # (Auto) Seg Neutrophils % Seg Neuts % (Manual) Baso # (Auto) Lymphocytes % (Manual) Monocytes % (Manual) Eosinophils % (Manual) Basophils % (Manual) Seg Neutrophils # Seg Neutrophils # Man Lymphocytes # (Manual) Monocytes # (Manual) Eosinophils # (Manual) Nucleated RBC % Basophils # (Manual) PT INR APTT Heparin Anti-Xa Level ABG pH POC ABG pO2 ABG pO2 ABG HCO3 ABG O2 Saturation ABG Base Excess POC ABG pCO2 ABG Hemoglobin ABG Oxyhemoglobin ABG Sodium ABG Chloride ABG Glucose Oxyhemoglobin Sodium Potassium Chloride Carbon Dioxide BUN Creatinine Glucose POC Glucose 120 H 136 H Lactic Acid Calcium Phosphorus Magnesium AST ALT Lactate Dehydrogenase Total Bilirubin Direct Bilirubin CK-MB (CK-2) C-Reactive Protein NT-Pro-B Natriuret Pep Total Protein Albumin Arterial Blood Glucose Urine WBC (Auto) Urine Creatinine Digoxin 01/20/20 01/20/20 01/20/20 05:40 11:58 14:55 WBC RBC Hgb 9.0 L Hct 28.3 L MCHC RDW MCV MCH Lymph % (Auto) [place] % (Auto) [place] # Eos # Lymph # (Auto) [place] # (Auto) Eos # (Auto) Seg Neutrophils % Seg Neuts % (Manual) Baso # (Auto) Lymphocytes % (Manual) Monocytes % (Manual) Eosinophils % (Manual) Basophils % (Manual) Seg Neutrophils # Seg Neutrophils # Man Lymphocytes # (Manual) Monocytes # (Manual) Eosinophils # (Manual) Nucleated RBC % Basophils # (Manual) PT INR APTT Heparin Anti-Xa Level ABG pH POC ABG pO2 ABG pO2 ABG HCO3 ABG O2 Saturation ABG Base Excess POC ABG pCO2 ABG Hemoglobin ABG Oxyhemoglobin ABG Sodium ABG Chloride ABG Glucose Oxyhemoglobin Sodium Potassium Chloride Carbon Dioxide 32 H BUN 22 H Creatinine 0.7 L Glucose 128 H POC Glucose 152 H Lactic Acid Calcium Phosphorus Magnesium AST ALT Lactate Dehydrogenase Total Bilirubin Direct Bilirubin CK-MB (CK-2) C-Reactive Protein NT-Pro-B Natriuret Pep Total Protein Albumin Arterial Blood Glucose Urine WBC (Auto) Urine Creatinine Digoxin 01/20/20 01/20/20 01/20/20 14:55 18:14 21:35 WBC RBC Hgb Hct MCHC RDW MCV MCH Lymph % (Auto) [place] % (Auto) [place] # Eos # Lymph # (Auto) [place] # (Auto) Eos # (Auto) Seg Neutrophils % Seg Neuts % (Manual) Baso # (Auto) Lymphocytes % (Manual) Monocytes % (Manual) Eosinophils % (Manual) Basophils % (Manual) Seg Neutrophils # Seg Neutrophils # Man Lymphocytes # (Manual) Monocytes # (Manual) Eosinophils # (Manual) Nucleated RBC % Basophils # (Manual) PT 20.4 H INR 1.72 H APTT 40.6 H Heparin Anti-Xa Level > 2.00 H ABG pH POC ABG pO2 ABG pO2 ABG HCO3 ABG O2 Saturation ABG Base Excess POC ABG pCO2 ABG Hemoglobin ABG Oxyhemoglobin ABG Sodium ABG Chloride ABG Glucose Oxyhemoglobin Sodium Potassium Chloride Carbon Dioxide BUN Creatinine Glucose POC Glucose 150 H Lactic Acid Calcium Phosphorus Magnesium AST ALT Lactate Dehydrogenase Total Bilirubin Direct Bilirubin CK-MB (CK-2) C-Reactive Protein NT-Pro-B Natriuret Pep Total Protein Albumin Arterial Blood Glucose Urine WBC (Auto) Urine Creatinine Digoxin 01/21/20 01/21/20 01/21/20 00:30 05:47 05:59 WBC RBC Hgb Hct MCHC RDW MCV MCH Lymph % (Auto) [place] % (Auto) [place] # Eos # Lymph # (Auto) [place] # (Auto) Eos # (Auto) Seg Neutrophils % Seg Neuts % (Manual) Baso # (Auto) Lymphocytes % (Manual) Monocytes % (Manual) Eosinophils % (Manual) Basophils % (Manual) Seg Neutrophils # Seg Neutrophils # Man Lymphocytes # (Manual) Monocytes # (Manual) Eosinophils # (Manual) Nucleated RBC % Basophils # (Manual) PT INR APTT Heparin Anti-Xa Level 1.93 H ABG pH POC ABG pO2 ABG pO2 ABG HCO3 ABG O2 Saturation ABG Base Excess POC ABG pCO2 ABG Hemoglobin ABG Oxyhemoglobin ABG Sodium ABG Chloride ABG Glucose Oxyhemoglobin Sodium Potassium Chloride Carbon Dioxide BUN Creatinine Glucose POC Glucose 126 H 148 H Lactic Acid Calcium Phosphorus Magnesium AST ALT Lactate Dehydrogenase Total Bilirubin Direct Bilirubin CK-MB (CK-2) C-Reactive Protein NT-Pro-B Natriuret Pep Total Protein Albumin Arterial Blood Glucose Urine WBC (Auto) Urine Creatinine Digoxin 01/21/20 01/21/20 01/21/20 12:32 18:20 23:54 WBC RBC Hgb Hct MCHC RDW MCV MCH Lymph % (Auto) [place] % (Auto) [place] # Eos # Lymph # (Auto) [place] # (Auto) Eos # (Auto) Seg Neutrophils % Seg Neuts % (Manual) Baso # (Auto) Lymphocytes % (Manual) Monocytes % (Manual) Eosinophils % (Manual) Basophils % (Manual) Seg Neutrophils # Seg Neutrophils # Man Lymphocytes # (Manual) Monocytes # (Manual) Eosinophils # (Manual) Nucleated RBC % Basophils # (Manual) PT INR APTT Heparin Anti-Xa Level 1.28 H ABG pH POC ABG pO2 ABG pO2 ABG HCO3 ABG O2 Saturation ABG Base Excess POC ABG pCO2 ABG Hemoglobin ABG Oxyhemoglobin ABG Sodium ABG Chloride ABG Glucose Oxyhemoglobin Sodium Potassium Chloride Carbon Dioxide BUN Creatinine Glucose POC Glucose 112 H 146 H Lactic Acid Calcium Phosphorus Magnesium AST ALT Lactate Dehydrogenase Total Bilirubin Direct Bilirubin CK-MB (CK-2) C-Reactive Protein NT-Pro-B Natriuret Pep Total Protein Albumin Arterial Blood Glucose Urine WBC (Auto) Urine Creatinine Digoxin 01/22/20 01/22/20 01/22/20 04:45 04:45 05:48 WBC RBC Hgb 9.3 L Hct 29.0 L MCHC RDW MCV MCH Lymph % (Auto) [place] % (Auto) [place] # Eos # Lymph # (Auto) [place] # (Auto) Eos # (Auto) Seg Neutrophils % Seg Neuts % (Manual) Baso # (Auto) Lymphocytes % (Manual) Monocytes % (Manual) Eosinophils % (Manual) Basophils % (Manual) Seg Neutrophils # Seg Neutrophils # Man Lymphocytes # (Manual) Monocytes # (Manual) Eosinophils # (Manual) Nucleated RBC % Basophils # (Manual) PT INR APTT Heparin Anti-Xa Level 1.34 H ABG pH POC ABG pO2 ABG pO2 ABG HCO3 ABG O2 Saturation ABG Base Excess POC ABG pCO2 ABG Hemoglobin ABG Oxyhemoglobin ABG Sodium ABG Chloride ABG Glucose Oxyhemoglobin Sodium Potassium Chloride Carbon Dioxide BUN Creatinine Glucose POC Glucose 142 H Lactic Acid Calcium Phosphorus Magnesium AST ALT Lactate Dehydrogenase Total Bilirubin Direct Bilirubin CK-MB (CK-2) C-Reactive Protein NT-Pro-B Natriuret Pep Total Protein Albumin Arterial Blood Glucose Urine WBC (Auto) Urine Creatinine Digoxin 01/22/20 01/22/20 01/22/20 08:09 08:22 09:58 WBC RBC Hgb Hct MCHC RDW MCV MCH Lymph % (Auto) [place] % (Auto) [place] # Eos # Lymph # (Auto) [place] # (Auto) Eos # (Auto) Seg Neutrophils % Seg Neuts % (Manual) Baso # (Auto) Lymphocytes % (Manual) Monocytes % (Manual) Eosinophils % (Manual) Basophils % (Manual) Seg Neutrophils # Seg Neutrophils # Man Lymphocytes # (Manual) Monocytes # (Manual) Eosinophils # (Manual) Nucleated RBC % Basophils # (Manual) PT 16.9 H INR 1.34 H APTT Heparin Anti-Xa Level ABG pH POC ABG pO2 ABG pO2 ABG HCO3 ABG O2 Saturation ABG Base Excess POC ABG pCO2 ABG Hemoglobin ABG Oxyhemoglobin ABG Sodium ABG Chloride ABG Glucose Oxyhemoglobin Sodium Potassium Chloride 97.8 L Carbon Dioxide BUN 29 H Creatinine Glucose 128 H POC Glucose 131 H Lactic Acid Calcium Phosphorus Magnesium AST ALT Lactate Dehydrogenase Total Bilirubin Direct Bilirubin CK-MB (CK-2) C-Reactive Protein NT-Pro-B Natriuret Pep Total Protein Albumin Arterial Blood Glucose Urine WBC (Auto) Urine Creatinine Digoxin 01/22/20 01/22/20 01/22/20 12:44 16:13 18:18 WBC RBC Hgb Hct MCHC RDW MCV MCH Lymph % (Auto) [place] % (Auto) [place] # Eos # Lymph # (Auto) [place] # (Auto) Eos # (Auto) Seg Neutrophils % Seg Neuts % (Manual) Baso # (Auto) Lymphocytes % (Manual) Monocytes % (Manual) Eosinophils % (Manual) Basophils % (Manual) Seg Neutrophils # Seg Neutrophils # Man Lymphocytes # (Manual) Monocytes # (Manual) Eosinophils # (Manual) Nucleated RBC % Basophils # (Manual) PT INR APTT Heparin Anti-Xa Level ABG pH POC ABG pO2 ABG pO2 ABG HCO3 ABG O2 Saturation ABG Base Excess POC ABG pCO2 ABG Hemoglobin ABG Oxyhemoglobin ABG Sodium ABG Chloride ABG Glucose Oxyhemoglobin Sodium Potassium Chloride Carbon Dioxide BUN Creatinine Glucose POC Glucose 156 H 133 H 155 H Lactic Acid Calcium Phosphorus Magnesium AST ALT Lactate Dehydrogenase Total Bilirubin Direct Bilirubin CK-MB (CK-2) C-Reactive Protein NT-Pro-B Natriuret Pep Total Protein Albumin Arterial Blood Glucose Urine WBC (Auto) Urine Creatinine Digoxin 01/22/20 01/23/20 01/23/20 23:22 05:37 12:59 WBC RBC Hgb Hct MCHC RDW MCV MCH Lymph % (Auto) [place] % (Auto) [place] # Eos # Lymph # (Auto) [place] # (Auto) Eos # (Auto) Seg Neutrophils % Seg Neuts % (Manual) Baso # (Auto) Lymphocytes % (Manual) Monocytes % (Manual) Eosinophils % (Manual) Basophils % (Manual) Seg Neutrophils # Seg Neutrophils # Man Lymphocytes # (Manual) Monocytes # (Manual) Eosinophils # (Manual) Nucleated RBC % Basophils # (Manual) PT INR APTT Heparin Anti-Xa Level ABG pH POC ABG pO2 ABG pO2 ABG HCO3 ABG O2 Saturation ABG Base Excess POC ABG pCO2 ABG Hemoglobin ABG Oxyhemoglobin ABG Sodium ABG Chloride ABG Glucose Oxyhemoglobin Sodium Potassium Chloride Carbon Dioxide BUN Creatinine Glucose POC Glucose 148 H 163 H 175 H Lactic Acid Calcium Phosphorus Magnesium AST ALT Lactate Dehydrogenase Total Bilirubin Direct Bilirubin CK-MB (CK-2) C-Reactive Protein NT-Pro-B Natriuret Pep Total Protein Albumin Arterial Blood Glucose Urine WBC (Auto) Urine Creatinine Digoxin 01/23/20 01/23/20 01/24/20 17:28 23:56 04:30 WBC RBC 3.46 L Hgb 8.8 L Hct 27.8 L MCHC RDW 18.2 H MCV 81 L MCH 25 L Lymph % (Auto) [place] % (Auto) 7.8 H [place] # Eos # Lymph # (Auto) [place] # (Auto) Eos # (Auto) Seg Neutrophils % Seg Neuts % (Manual) Baso # (Auto) Lymphocytes % (Manual) Monocytes % (Manual) Eosinophils % (Manual) Basophils % (Manual) Seg Neutrophils # Seg Neutrophils # Man Lymphocytes # (Manual) Monocytes # (Manual) Eosinophils # (Manual) Nucleated RBC % Basophils # (Manual) PT INR APTT Heparin Anti-Xa Level ABG pH POC ABG pO2 ABG pO2 ABG HCO3 ABG O2 Saturation ABG Base Excess POC ABG pCO2 ABG Hemoglobin ABG Oxyhemoglobin ABG Sodium ABG Chloride ABG Glucose Oxyhemoglobin Sodium Potassium Chloride Carbon Dioxide BUN Creatinine Glucose POC Glucose 165 H 177 H Lactic Acid Calcium Phosphorus Magnesium AST ALT Lactate Dehydrogenase Total Bilirubin Direct Bilirubin CK-MB (CK-2) C-Reactive Protein NT-Pro-B Natriuret Pep Total Protein Albumin Arterial Blood Glucose Urine WBC (Auto) Urine Creatinine Digoxin 01/24/20 01/24/20 01/24/20 04:30 07:18 12:06 WBC RBC Hgb Hct MCHC RDW MCV MCH Lymph % (Auto) [place] % (Auto) [place] # Eos # Lymph # (Auto) [place] # (Auto) Eos # (Auto) Seg Neutrophils % Seg Neuts % (Manual) Baso # (Auto) Lymphocytes % (Manual) Monocytes % (Manual) Eosinophils % (Manual) Basophils % (Manual) Seg Neutrophils # Seg Neutrophils # Man Lymphocytes # (Manual) Monocytes # (Manual) Eosinophils # (Manual) Nucleated RBC % Basophils # (Manual) PT INR APTT Heparin Anti-Xa Level ABG pH POC ABG pO2 ABG pO2 ABG HCO3 ABG O2 Saturation ABG Base Excess POC ABG pCO2 ABG Hemoglobin ABG Oxyhemoglobin ABG Sodium ABG Chloride ABG Glucose Oxyhemoglobin Sodium Potassium Chloride 97.9 L Carbon Dioxide BUN 31 H Creatinine Glucose 146 H POC Glucose 151 H 133 H Lactic Acid Calcium Phosphorus Magnesium AST ALT Lactate Dehydrogenase Total Bilirubin Direct Bilirubin CK-MB (CK-2) C-Reactive Protein NT-Pro-B Natriuret Pep Total Protein Albumin Arterial Blood Glucose Urine WBC (Auto) Urine Creatinine Digoxin 01/24/20 01/25/20 01/25/20 17:36 00:08 04:25 WBC RBC 3.50 L Hgb 8.7 L Hct 27.9 L MCHC 31 L RDW 18.2 H MCV 80 L MCH 25 L Lymph % (Auto) [place] % (Auto) 8.5 H [place] # Eos # Lymph # (Auto) [place] # (Auto) Eos # (Auto) Seg Neutrophils % Seg Neuts % (Manual) Baso # (Auto) Lymphocytes % (Manual) Monocytes % (Manual) Eosinophils % (Manual) Basophils % (Manual) Seg Neutrophils # Seg Neutrophils # Man Lymphocytes # (Manual) Monocytes # (Manual) Eosinophils # (Manual) Nucleated RBC % Basophils # (Manual) PT INR APTT Heparin Anti-Xa Level ABG pH POC ABG pO2 ABG pO2 ABG HCO3 ABG O2 Saturation ABG Base Excess POC ABG pCO2 ABG Hemoglobin ABG Oxyhemoglobin ABG Sodium ABG Chloride ABG Glucose Oxyhemoglobin Sodium Potassium Chloride Carbon Dioxide BUN Creatinine Glucose POC Glucose 133 H 129 H Lactic Acid Calcium Phosphorus Magnesium AST ALT Lactate Dehydrogenase Total Bilirubin Direct Bilirubin CK-MB (CK-2) C-Reactive Protein NT-Pro-B Natriuret Pep Total Protein Albumin Arterial Blood Glucose Urine WBC (Auto) Urine Creatinine Digoxin 01/25/20 01/25/20 01/25/20 04:25 05:38 11:52 WBC RBC Hgb Hct MCHC RDW MCV MCH Lymph % (Auto) [place] % (Auto) [place] # Eos # Lymph # (Auto) [place] # (Auto) Eos # (Auto) Seg Neutrophils % Seg Neuts % (Manual) Baso # (Auto) Lymphocytes % (Manual) Monocytes % (Manual) Eosinophils % (Manual) Basophils % (Manual) Seg Neutrophils # Seg Neutrophils # Man Lymphocytes # (Manual) Monocytes # (Manual) Eosinophils # (Manual) Nucleated RBC % Basophils # (Manual) PT INR APTT Heparin Anti-Xa Level ABG pH POC ABG pO2 ABG pO2 ABG HCO3 ABG O2 Saturation ABG Base Excess POC ABG pCO2 ABG Hemoglobin ABG Oxyhemoglobin ABG Sodium ABG Chloride ABG Glucose Oxyhemoglobin Sodium Potassium Chloride Carbon Dioxide BUN 30 H Creatinine Glucose 134 H POC Glucose 129 H 134 H Lactic Acid Calcium Phosphorus Magnesium AST ALT Lactate Dehydrogenase Total Bilirubin Direct Bilirubin CK-MB (CK-2) C-Reactive Protein NT-Pro-B Natriuret Pep Total Protein Albumin Arterial Blood Glucose Urine WBC (Auto) Urine Creatinine Digoxin 01/25/20 01/25/20 01/26/20 17:13 21:02 00:59 WBC RBC Hgb Hct MCHC RDW MCV MCH Lymph % (Auto) [place] % (Auto) [place] # Eos # Lymph # (Auto) [place] # (Auto) Eos # (Auto) Seg Neutrophils % Seg Neuts % (Manual) Baso # (Auto) Lymphocytes % (Manual) Monocytes % (Manual) Eosinophils % (Manual) Basophils % (Manual) Seg Neutrophils # Seg Neutrophils # Man Lymphocytes # (Manual) Monocytes # (Manual) Eosinophils # (Manual) Nucleated RBC % Basophils # (Manual) PT INR APTT Heparin Anti-Xa Level ABG pH POC ABG pO2 ABG pO2 57.5 L ABG HCO3 31.7 H ABG O2 Saturation 90.3 L ABG Base Excess 6.6 H POC ABG pCO2 ABG Hemoglobin 13.0 L ABG Oxyhemoglobin ABG Sodium ABG Chloride ABG Glucose Oxyhemoglobin 87.5 L Sodium Potassium Chloride Carbon Dioxide BUN Creatinine Glucose POC Glucose 124 H 196 H Lactic Acid Calcium Phosphorus Magnesium AST ALT Lactate Dehydrogenase Total Bilirubin Direct Bilirubin CK-MB (CK-2) C-Reactive Protein NT-Pro-B Natriuret Pep Total Protein Albumin Arterial Blood Glucose Urine WBC (Auto) Urine Creatinine Digoxin 01/26/20 01/26/20 01/26/20 03:20 05:46 12:46 WBC RBC Hgb 9.2 L Hct 29.4 L MCHC RDW MCV MCH Lymph % (Auto) [place] % (Auto) [place] # Eos # Lymph # (Auto) [place] # (Auto) Eos # (Auto) Seg Neutrophils % Seg Neuts % (Manual) Baso # (Auto) Lymphocytes % (Manual) Monocytes % (Manual) Eosinophils % (Manual) Basophils % (Manual) Seg Neutrophils # Seg Neutrophils # Man Lymphocytes # (Manual) Monocytes # (Manual) Eosinophils # (Manual) Nucleated RBC % Basophils # (Manual) PT INR APTT Heparin Anti-Xa Level ABG pH POC ABG pO2 ABG pO2 ABG HCO3 ABG O2 Saturation ABG Base Excess POC ABG pCO2 ABG Hemoglobin ABG Oxyhemoglobin ABG Sodium ABG Chloride ABG Glucose Oxyhemoglobin Sodium Potassium Chloride Carbon Dioxide BUN Creatinine Glucose POC Glucose 141 H 122 H Lactic Acid Calcium Phosphorus Magnesium AST ALT Lactate Dehydrogenase Total Bilirubin Direct Bilirubin CK-MB (CK-2) C-Reactive Protein NT-Pro-B Natriuret Pep Total Protein Albumin Arterial Blood Glucose Urine WBC (Auto) Urine Creatinine Digoxin 01/26/20 01/26/20 01/27/20 18:03 23:55 04:47 WBC RBC Hgb Hct MCHC RDW MCV MCH Lymph % (Auto) [place] % (Auto) [place] # Eos # Lymph # (Auto) [place] # (Auto) Eos # (Auto) Seg Neutrophils % Seg Neuts % (Manual) Baso # (Auto) Lymphocytes % (Manual) Monocytes % (Manual) Eosinophils % (Manual) Basophils % (Manual) Seg Neutrophils # Seg Neutrophils # Man Lymphocytes # (Manual) Monocytes # (Manual) Eosinophils # (Manual) Nucleated RBC % Basophils # (Manual) PT INR APTT Heparin Anti-Xa Level ABG pH POC ABG pO2 ABG pO2 ABG HCO3 ABG O2 Saturation ABG Base Excess POC ABG pCO2 ABG Hemoglobin ABG Oxyhemoglobin ABG Sodium ABG Chloride ABG Glucose Oxyhemoglobin Sodium Potassium Chloride Carbon Dioxide BUN 30 H Creatinine 0.7 L Glucose 135 H POC Glucose 142 H 159 H Lactic Acid Calcium Phosphorus Magnesium AST ALT Lactate Dehydrogenase Total Bilirubin Direct Bilirubin CK-MB (CK-2) C-Reactive Protein NT-Pro-B Natriuret Pep Total Protein Albumin Arterial Blood Glucose Urine WBC (Auto) Urine Creatinine Digoxin 01/27/20 01/27/20 01/27/20 05:43 12:06 17:16 WBC RBC Hgb Hct MCHC RDW MCV MCH Lymph % (Auto) [place] % (Auto) [place] # Eos # Lymph # (Auto) [place] # (Auto) Eos # (Auto) Seg Neutrophils % Seg Neuts % (Manual) Baso # (Auto) Lymphocytes % (Manual) Monocytes % (Manual) Eosinophils % (Manual) Basophils % (Manual) Seg Neutrophils # Seg Neutrophils # Man Lymphocytes # (Manual) Monocytes # (Manual) Eosinophils # (Manual) Nucleated RBC % Basophils # (Manual) PT INR APTT Heparin Anti-Xa Level ABG pH POC ABG pO2 ABG pO2 ABG HCO3 ABG O2 Saturation ABG Base Excess POC ABG pCO2 ABG Hemoglobin ABG Oxyhemoglobin ABG Sodium ABG Chloride ABG Glucose Oxyhemoglobin Sodium Potassium Chloride Carbon Dioxide BUN Creatinine Glucose POC Glucose 143 H 142 H 128 H Lactic Acid Calcium Phosphorus Magnesium AST ALT Lactate Dehydrogenase Total Bilirubin Direct Bilirubin CK-MB (CK-2) C-Reactive Protein NT-Pro-B Natriuret Pep Total Protein Albumin Arterial Blood Glucose Urine WBC (Auto) Urine Creatinine Digoxin 01/27/20 01/28/20 01/28/20 23:55 04:37 05:55 WBC RBC Hgb 9.4 L Hct 29.9 L MCHC RDW MCV MCH Lymph % (Auto) [place] % (Auto) [place] # Eos # Lymph # (Auto) [place] # (Auto) Eos # (Auto) Seg Neutrophils % Seg Neuts % (Manual) Baso # (Auto) Lymphocytes % (Manual) Monocytes % (Manual) Eosinophils % (Manual) Basophils % (Manual) Seg Neutrophils # Seg Neutrophils # Man Lymphocytes # (Manual) Monocytes # (Manual) Eosinophils # (Manual) Nucleated RBC % Basophils # (Manual) PT INR APTT Heparin Anti-Xa Level ABG pH POC ABG pO2 ABG pO2 ABG HCO3 ABG O2 Saturation ABG Base Excess POC ABG pCO2 ABG Hemoglobin ABG Oxyhemoglobin ABG Sodium ABG Chloride ABG Glucose Oxyhemoglobin Sodium Potassium Chloride Carbon Dioxide BUN Creatinine Glucose POC Glucose 166 H 169 H Lactic Acid Calcium Phosphorus Magnesium AST ALT Lactate Dehydrogenase Total Bilirubin Direct Bilirubin CK-MB (CK-2) C-Reactive Protein NT-Pro-B Natriuret Pep Total Protein Albumin Arterial Blood Glucose Urine WBC (Auto) Urine Creatinine Digoxin 01/28/20 01/28/20 01/28/20 11:58 17:26 23:46 WBC RBC Hgb Hct MCHC RDW MCV MCH Lymph % (Auto) [place] % (Auto) [place] # Eos # Lymph # (Auto) [place] # (Auto) Eos # (Auto) Seg Neutrophils % Seg Neuts % (Manual) Baso # (Auto) Lymphocytes % (Manual) Monocytes % (Manual) Eosinophils % (Manual) Basophils % (Manual) Seg Neutrophils # Seg Neutrophils # Man Lymphocytes # (Manual) Monocytes # (Manual) Eosinophils # (Manual) Nucleated RBC % Basophils # (Manual) PT INR APTT Heparin Anti-Xa Level ABG pH POC ABG pO2 ABG pO2 ABG HCO3 ABG O2 Saturation ABG Base Excess POC ABG pCO2 ABG Hemoglobin ABG Oxyhemoglobin ABG Sodium ABG Chloride ABG Glucose Oxyhemoglobin Sodium Potassium Chloride Carbon Dioxide BUN Creatinine Glucose POC Glucose 130 H 126 H 150 H Lactic Acid Calcium Phosphorus Magnesium AST ALT Lactate Dehydrogenase Total Bilirubin Direct Bilirubin CK-MB (CK-2) C-Reactive Protein NT-Pro-B Natriuret Pep Total Protein Albumin Arterial Blood Glucose Urine WBC (Auto) Urine Creatinine Digoxin 01/29/20 01/29/20 01/29/20 04:55 06:00 12:28 WBC RBC Hgb Hct MCHC RDW MCV MCH Lymph % (Auto) [place] % (Auto) [place] # Eos # Lymph # (Auto) [place] # (Auto) Eos # (Auto) Seg Neutrophils % Seg Neuts % (Manual) Baso # (Auto) Lymphocytes % (Manual) Monocytes % (Manual) Eosinophils % (Manual) Basophils % (Manual) Seg Neutrophils # Seg Neutrophils # Man Lymphocytes # (Manual) Monocytes # (Manual) Eosinophils # (Manual) Nucleated RBC % Basophils # (Manual) PT INR APTT Heparin Anti-Xa Level ABG pH POC ABG pO2 ABG pO2 ABG HCO3 ABG O2 Saturation ABG Base Excess POC ABG pCO2 ABG Hemoglobin ABG Oxyhemoglobin ABG Sodium ABG Chloride ABG Glucose Oxyhemoglobin Sodium Potassium Chloride Carbon Dioxide 34 H BUN Creatinine 0.6 L Glucose 152 H POC Glucose 157 H 156 H Lactic Acid Calcium Phosphorus Magnesium AST ALT Lactate Dehydrogenase Total Bilirubin Direct Bilirubin CK-MB (CK-2) C-Reactive Protein NT-Pro-B Natriuret Pep Total Protein Albumin Arterial Blood Glucose Urine WBC (Auto) Urine Creatinine Digoxin 01/29/20 01/30/20 01/30/20 19:06 00:29 05:39 WBC RBC Hgb Hct MCHC RDW MCV MCH Lymph % (Auto) [place] % (Auto) [place] # Eos # Lymph # (Auto) [place] # (Auto) Eos # (Auto) Seg Neutrophils % Seg Neuts % (Manual) Baso # (Auto) Lymphocytes % (Manual) Monocytes % (Manual) Eosinophils % (Manual) Basophils % (Manual) Seg Neutrophils # Seg Neutrophils # Man Lymphocytes # (Manual) Monocytes # (Manual) Eosinophils # (Manual) Nucleated RBC % Basophils # (Manual) PT INR APTT Heparin Anti-Xa Level ABG pH POC ABG pO2 ABG pO2 ABG HCO3 ABG O2 Saturation ABG Base Excess POC ABG pCO2 ABG Hemoglobin ABG Oxyhemoglobin ABG Sodium ABG Chloride ABG Glucose Oxyhemoglobin Sodium Potassium Chloride Carbon Dioxide BUN Creatinine Glucose POC Glucose 152 H 132 H 159 H Lactic Acid Calcium Phosphorus Magnesium AST ALT Lactate Dehydrogenase Total Bilirubin Direct Bilirubin CK-MB (CK-2) C-Reactive Protein NT-Pro-B Natriuret Pep Total Protein Albumin Arterial Blood Glucose Urine WBC (Auto) Urine Creatinine Digoxin 01/30/20 01/30/20 01/30/20 12:27 17:42 23:28 WBC RBC Hgb Hct MCHC RDW MCV MCH Lymph % (Auto) [place] % (Auto) [place] # Eos # Lymph # (Auto) [place] # (Auto) Eos # (Auto) Seg Neutrophils % Seg Neuts % (Manual) Baso # (Auto) Lymphocytes % (Manual) Monocytes % (Manual) Eosinophils % (Manual) Basophils % (Manual) Seg Neutrophils # Seg Neutrophils # Man Lymphocytes # (Manual) Monocytes # (Manual) Eosinophils # (Manual) Nucleated RBC % Basophils # (Manual) PT INR APTT Heparin Anti-Xa Level ABG pH POC ABG pO2 ABG pO2 ABG HCO3 ABG O2 Saturation ABG Base Excess POC ABG pCO2 ABG Hemoglobin ABG Oxyhemoglobin ABG Sodium ABG Chloride ABG Glucose Oxyhemoglobin Sodium Potassium Chloride Carbon Dioxide BUN Creatinine Glucose POC Glucose 151 H 144 H 164 H Lactic Acid Calcium Phosphorus Magnesium AST ALT Lactate Dehydrogenase Total Bilirubin Direct Bilirubin CK-MB (CK-2) C-Reactive Protein NT-Pro-B Natriuret Pep Total Protein Albumin Arterial Blood Glucose Urine WBC (Auto) Urine Creatinine Digoxin 01/31/20 01/31/20 01/31/20 05:51 11:51 18:06 WBC RBC Hgb Hct MCHC RDW MCV MCH Lymph % (Auto) [place] % (Auto) [place] # Eos # Lymph # (Auto) [place] # (Auto) Eos # (Auto) Seg Neutrophils % Seg Neuts % (Manual) Baso # (Auto) Lymphocytes % (Manual) Monocytes % (Manual) Eosinophils % (Manual) Basophils % (Manual) Seg Neutrophils # Seg Neutrophils # Man Lymphocytes # (Manual) Monocytes # (Manual) Eosinophils # (Manual) Nucleated RBC % Basophils # (Manual) PT INR APTT Heparin Anti-Xa Level ABG pH POC ABG pO2 ABG pO2 ABG HCO3 ABG O2 Saturation ABG Base Excess POC ABG pCO2 ABG Hemoglobin ABG Oxyhemoglobin ABG Sodium ABG Chloride ABG Glucose Oxyhemoglobin Sodium Potassium Chloride Carbon Dioxide BUN Creatinine Glucose POC Glucose 131 H 167 H 210 H Lactic Acid Calcium Phosphorus Magnesium AST ALT Lactate Dehydrogenase Total Bilirubin Direct Bilirubin CK-MB (CK-2) C-Reactive Protein NT-Pro-B Natriuret Pep Total Protein Albumin Arterial Blood Glucose Urine WBC (Auto) Urine Creatinine Digoxin 01/31/20 01/31/20 02/01/20 19:24 Unknown 00:34 WBC RBC Hgb Hct MCHC RDW MCV MCH Lymph % (Auto) [place] % (Auto) [place] # Eos # Lymph # (Auto) [place] # (Auto) Eos # (Auto) Seg Neutrophils % Seg Neuts % (Manual) Baso # (Auto) Lymphocytes % (Manual) Monocytes % (Manual) Eosinophils % (Manual) Basophils % (Manual) Seg Neutrophils # Seg Neutrophils # Man Lymphocytes # (Manual) Monocytes # (Manual) Eosinophils # (Manual) Nucleated RBC % Basophils # (Manual) PT INR APTT Heparin Anti-Xa Level ABG pH POC ABG pO2 ABG pO2 ABG HCO3 ABG O2 Saturation ABG Base Excess POC ABG pCO2 ABG Hemoglobin ABG Oxyhemoglobin ABG Sodium ABG Chloride ABG Glucose Oxyhemoglobin Sodium Potassium Chloride 95.3 L Carbon Dioxide 33 H BUN 36 H Creatinine Glucose 187 H POC Glucose 116 H Lactic Acid Calcium Phosphorus Magnesium AST ALT Lactate Dehydrogenase Total Bilirubin Direct Bilirubin CK-MB (CK-2) C-Reactive Protein NT-Pro-B Natriuret Pep Total Protein Albumin Arterial Blood Glucose Urine WBC (Auto) Urine Creatinine 57.4 H Digoxin 02/01/20 02/01/20 02/01/20 05:24 10:40 12:29 WBC RBC Hgb Hct MCHC RDW MCV MCH Lymph % (Auto) [place] % (Auto) [place] # Eos # Lymph # (Auto) [place] # (Auto) Eos # (Auto) Seg Neutrophils % Seg Neuts % (Manual) Baso # (Auto) Lymphocytes % (Manual) Monocytes % (Manual) Eosinophils % (Manual) Basophils % (Manual) Seg Neutrophils # Seg Neutrophils # Man Lymphocytes # (Manual) Monocytes # (Manual) Eosinophils # (Manual) Nucleated RBC % Basophils # (Manual) PT INR APTT Heparin Anti-Xa Level ABG pH POC ABG pO2 ABG pO2 ABG HCO3 ABG O2 Saturation ABG Base Excess POC ABG pCO2 ABG Hemoglobin ABG Oxyhemoglobin ABG Sodium ABG Chloride ABG Glucose Oxyhemoglobin Sodium Potassium Chloride Carbon Dioxide BUN Creatinine Glucose POC Glucose 142 H 165 H 151 H Lactic Acid Calcium Phosphorus Magnesium AST ALT Lactate Dehydrogenase Total Bilirubin Direct Bilirubin CK-MB (CK-2) C-Reactive Protein NT-Pro-B Natriuret Pep Total Protein Albumin Arterial Blood Glucose Urine WBC (Auto) Urine Creatinine Digoxin 02/01/20 02/01/20 02/02/20 17:16 23:23 06:36 WBC RBC Hgb Hct MCHC RDW MCV MCH Lymph % (Auto) [place] % (Auto) [place] # Eos # Lymph # (Auto) [place] # (Auto) Eos # (Auto) Seg Neutrophils % Seg Neuts % (Manual) Baso # (Auto) Lymphocytes % (Manual) Monocytes % (Manual) Eosinophils % (Manual) Basophils % (Manual) Seg Neutrophils # Seg Neutrophils # Man Lymphocytes # (Manual) Monocytes # (Manual) Eosinophils # (Manual) Nucleated RBC % Basophils # (Manual) PT INR APTT Heparin Anti-Xa Level ABG pH POC ABG pO2 ABG pO2 ABG HCO3 ABG O2 Saturation ABG Base Excess POC ABG pCO2 ABG Hemoglobin ABG Oxyhemoglobin ABG Sodium ABG Chloride ABG Glucose Oxyhemoglobin Sodium Potassium Chloride Carbon Dioxide BUN Creatinine Glucose POC Glucose 137 H 145 H 181 H Lactic Acid Calcium Phosphorus Magnesium AST ALT Lactate Dehydrogenase Total Bilirubin Direct Bilirubin CK-MB (CK-2) C-Reactive Protein NT-Pro-B Natriuret Pep Total Protein Albumin Arterial Blood Glucose Urine WBC (Auto) Urine Creatinine Digoxin 02/02/20 02/02/20 02/02/20 10:01 12:05 17:54 WBC RBC Hgb Hct MCHC RDW MCV MCH Lymph % (Auto) [place] % (Auto) [place] # Eos # Lymph # (Auto) [place] # (Auto) Eos # (Auto) Seg Neutrophils % Seg Neuts % (Manual) Baso # (Auto) Lymphocytes % (Manual) Monocytes % (Manual) Eosinophils % (Manual) Basophils % (Manual) Seg Neutrophils # Seg Neutrophils # Man Lymphocytes # (Manual) Monocytes # (Manual) Eosinophils # (Manual) Nucleated RBC % Basophils # (Manual) PT INR APTT Heparin Anti-Xa Level ABG pH POC ABG pO2 ABG pO2 ABG HCO3 ABG O2 Saturation ABG Base Excess POC ABG pCO2 ABG Hemoglobin ABG Oxyhemoglobin ABG Sodium ABG Chloride ABG Glucose Oxyhemoglobin Sodium Potassium Chloride 95.3 L Carbon Dioxide BUN 44 H Creatinine Glucose 234 H POC Glucose 184 H 127 H Lactic Acid Calcium Phosphorus Magnesium AST 363 H ALT 457 H Lactate Dehydrogenase Total Bilirubin Direct Bilirubin CK-MB (CK-2) C-Reactive Protein NT-Pro-B Natriuret Pep Total Protein Albumin 3.0 L Arterial Blood Glucose Urine WBC (Auto) Urine Creatinine Digoxin 02/02/20 02/03/20 02/03/20 23:47 05:32 07:04 WBC 13.0 H RBC Hgb 9.5 L Hct 30.8 L MCHC 31 L RDW 19.6 H MCV 81 L MCH 25 L Lymph % (Auto) [place] % (Auto) 9.4 H [place] # Eos # Lymph # (Auto) [place] # (Auto) 1.2 H Eos # (Auto) Seg Neutrophils % 72.3 H Seg Neuts % (Manual) Baso # (Auto) Lymphocytes % (Manual) Monocytes % (Manual) Eosinophils % (Manual) Basophils % (Manual) Seg Neutrophils # 9.4 H Seg Neutrophils # Man Lymphocytes # (Manual) Monocytes # (Manual) Eosinophils # (Manual) Nucleated RBC % Basophils # (Manual) PT INR APTT Heparin Anti-Xa Level ABG pH POC ABG pO2 ABG pO2 ABG HCO3 ABG O2 Saturation ABG Base Excess POC ABG pCO2 ABG Hemoglobin ABG Oxyhemoglobin ABG Sodium ABG Chloride ABG Glucose Oxyhemoglobin Sodium Potassium Chloride Carbon Dioxide BUN Creatinine Glucose POC Glucose 124 H 129 H Lactic Acid Calcium Phosphorus Magnesium AST ALT Lactate Dehydrogenase Total Bilirubin Direct Bilirubin CK-MB (CK-2) C-Reactive Protein NT-Pro-B Natriuret Pep Total Protein Albumin Arterial Blood Glucose Urine WBC (Auto) Urine Creatinine Digoxin 02/03/20 02/03/2020 07:04 11:32 12:49 WBC RBC Hgb Hct MCHC RDW MCV MCH Lymph % (Auto) [place] % (Auto) [place] # Eos # Lymph # (Auto) [place] # (Auto) Eos # (Auto) Seg Neutrophils % Seg Neuts % (Manual) Baso # (Auto) Lymphocytes % (Manual) Monocytes % (Manual) Eosinophils % (Manual) Basophils % (Manual) Seg Neutrophils # Seg Neutrophils # Man Lymphocytes # (Manual) Monocytes # (Manual) Eosinophils # (Manual) Nucleated RBC % Basophils # (Manual) PT INR APTT Heparin Anti-Xa Level ABG pH POC ABG pO2 ABG pO2 ABG HCO3 ABG O2 Saturation ABG Base Excess POC ABG pCO2 ABG Hemoglobin ABG Oxyhemoglobin ABG Sodium ABG Chloride ABG Glucose Oxyhemoglobin Sodium Potassium Chloride 97.9 L Carbon Dioxide 33 H BUN 39 H Creatinine Glucose 119 H POC Glucose 138 H Lactic Acid Calcium Phosphorus Magnesium 2.60 H AST ALT Lactate Dehydrogenase Total Bilirubin Direct Bilirubin CK-MB (CK-2) C-Reactive Protein NT-Pro-B Natriuret Pep Total Protein Albumin Arterial Blood Glucose Urine WBC (Auto) Urine Creatinine Digoxin 02/03/20 02/04/20 02/04/20 18:28 16:24 16:24 WBC RBC 3.38 L Hgb 8.6 L Hct 26.9 L MCHC RDW 19.5 H MCV 80 L MCH 26 L Lymph % (Auto) [place] % (Auto) [place] # Eos # Lymph # (Auto) [place] # (Auto) Eos # (Auto) Seg Neutrophils % Seg Neuts % (Manual) Baso # (Auto) Lymphocytes % (Manual) Monocytes % (Manual) Eosinophils % (Manual) Basophils % (Manual) Seg Neutrophils # Seg Neutrophils # Man Lymphocytes # (Manual) Monocytes # (Manual) Eosinophils # (Manual) Nucleated RBC % Basophils # (Manual) PT INR APTT Heparin Anti-Xa Level ABG pH POC ABG pO2 ABG pO2 ABG HCO3 ABG O2 Saturation ABG Base Excess POC ABG pCO2 ABG Hemoglobin ABG Oxyhemoglobin ABG Sodium ABG Chloride ABG Glucose Oxyhemoglobin Sodium Potassium 3.4 L Chloride Carbon Dioxide 31 H BUN 37 H Creatinine Glucose 70 L POC Glucose 118 H Lactic Acid Calcium Phosphorus Magnesium AST 169 H ALT 394 H Lactate Dehydrogenase Total Bilirubin 1.50 H Direct Bilirubin CK-MB (CK-2) C-Reactive Protein NT-Pro-B Natriuret Pep Total Protein Albumin 2.9 L Arterial Blood Glucose Urine WBC (Auto) Urine Creatinine Digoxin 02/05/20 02/05/20 02/05/20 00:41 06:37 17:14 WBC RBC Hgb Hct MCHC RDW MCV MCH Lymph % (Auto) [place] % (Auto) [place] # Eos # Lymph # (Auto) [place] # (Auto) Eos # (Auto) Seg Neutrophils % Seg Neuts % (Manual) Baso # (Auto) Lymphocytes % (Manual) Monocytes % (Manual) Eosinophils % (Manual) Basophils % (Manual) Seg Neutrophils # Seg Neutrophils # Man Lymphocytes # (Manual) Monocytes # (Manual) Eosinophils # (Manual) Nucleated RBC % Basophils # (Manual) PT INR APTT Heparin Anti-Xa Level ABG pH POC ABG pO2 ABG pO2 ABG HCO3 ABG O2 Saturation ABG Base Excess POC ABG pCO2 ABG Hemoglobin ABG Oxyhemoglobin ABG Sodium ABG Chloride ABG Glucose Oxyhemoglobin Sodium Potassium 3.1 L Chloride Carbon Dioxide 35 H BUN 32 H Creatinine 0.7 L Glucose POC Glucose 69 L 127 H Lactic Acid Calcium Phosphorus Magnesium AST 134 H ALT 352 H Lactate Dehydrogenase Total Bilirubin 1.60 H Direct Bilirubin CK-MB (CK-2) C-Reactive Protein NT-Pro-B Natriuret Pep Total Protein Albumin 2.9 L Arterial Blood Glucose Urine WBC (Auto) Urine Creatinine Digoxin 02/05/20 02/06/20 02/06/20 23:43 05:32 08:01 WBC RBC Hgb Hct MCHC RDW MCV MCH Lymph % (Auto) [place] % (Auto) [place] # Eos # Lymph # (Auto) [place] # (Auto) Eos # (Auto) Seg Neutrophils % Seg Neuts % (Manual) Baso # (Auto) Lymphocytes % (Manual) Monocytes % (Manual) Eosinophils % (Manual) Basophils % (Manual) Seg Neutrophils # Seg Neutrophils # Man Lymphocytes # (Manual) Monocytes # (Manual) Eosinophils # (Manual) Nucleated RBC % Basophils # (Manual) PT INR APTT Heparin Anti-Xa Level ABG pH POC ABG pO2 ABG pO2 ABG HCO3 ABG O2 Saturation ABG Base Excess POC ABG pCO2 ABG Hemoglobin ABG Oxyhemoglobin ABG Sodium ABG Chloride ABG Glucose Oxyhemoglobin Sodium Potassium Chloride Carbon Dioxide BUN 40 H Creatinine Glucose 132 H POC Glucose 129 H 131 H Lactic Acid Calcium Phosphorus Magnesium AST ALT Lactate Dehydrogenase Total Bilirubin Direct Bilirubin CK-MB (CK-2) C-Reactive Protein NT-Pro-B Natriuret Pep Total Protein Albumin Arterial Blood Glucose Urine WBC (Auto) Urine Creatinine Digoxin 02/06/20 02/06/20 02/06/20 11:51 16:28 17:32 WBC RBC Hgb Hct MCHC RDW MCV MCH Lymph % (Auto) [place] % (Auto) [place] # Eos # Lymph # (Auto) [place] # (Auto) Eos # (Auto) Seg Neutrophils % Seg Neuts % (Manual) Baso # (Auto) Lymphocytes % (Manual) Monocytes % (Manual) Eosinophils % (Manual) Basophils % (Manual) Seg Neutrophils # Seg Neutrophils # Man Lymphocytes # (Manual) Monocytes # (Manual) Eosinophils # (Manual) Nucleated RBC % Basophils # (Manual) PT INR APTT Heparin Anti-Xa Level ABG pH POC ABG pO2 ABG pO2 ABG HCO3 ABG O2 Saturation ABG Base Excess POC ABG pCO2 ABG Hemoglobin ABG Oxyhemoglobin ABG Sodium ABG Chloride ABG Glucose Oxyhemoglobin Sodium Potassium Chloride Carbon Dioxide BUN Creatinine Glucose POC Glucose 167 H 129 H Lactic Acid Calcium Phosphorus Magnesium AST 824 H ALT 948 H Lactate Dehydrogenase Total Bilirubin 1.70 H Direct Bilirubin 1.2 H CK-MB (CK-2) C-Reactive Protein NT-Pro-B Natriuret Pep Total Protein Albumin 2.9 L Arterial Blood Glucose Urine WBC (Auto) Urine Creatinine Digoxin 02/07/20 02/07/20 02/07/20 00:11 04:57 04:57 WBC RBC Hgb 9.2 L Hct 29.7 L MCHC 31 L RDW 20.2 H MCV 80 L MCH 25 L Lymph % (Auto) [place] % (Auto) [place] # Eos # Lymph # (Auto) [place] # (Auto) Eos # (Auto) Seg Neutrophils % Seg Neuts % (Manual) Baso # (Auto) Lymphocytes % (Manual) Monocytes % (Manual) Eosinophils % (Manual) Basophils % (Manual) Seg Neutrophils # Seg Neutrophils # Man Lymphocytes # (Manual) Monocytes # (Manual) Eosinophils # (Manual) Nucleated RBC % Basophils # (Manual) PT INR APTT Heparin Anti-Xa Level ABG pH POC ABG pO2 ABG pO2 ABG HCO3 ABG O2 Saturation ABG Base Excess POC ABG pCO2 ABG Hemoglobin ABG Oxyhemoglobin ABG Sodium ABG Chloride ABG Glucose Oxyhemoglobin Sodium Potassium 3.4 L D Chloride Carbon Dioxide 32 H BUN 39 H Creatinine Glucose 106 H POC Glucose 121 H Lactic Acid Calcium Phosphorus Magnesium AST ALT Lactate Dehydrogenase Total Bilirubin Direct Bilirubin CK-MB (CK-2) C-Reactive Protein NT-Pro-B Natriuret Pep Total Protein Albumin Arterial Blood Glucose Urine WBC (Auto) Urine Creatinine Digoxin 02/07/20 02/07/20 02/07/20 15:03 15:03 17:11 WBC RBC Hgb Hct MCHC RDW MCV MCH Lymph % (Auto) [place] % (Auto) [place] # Eos # Lymph # (Auto) [place] # (Auto) Eos # (Auto) Seg Neutrophils % Seg Neuts % (Manual) Baso # (Auto) Lymphocytes % (Manual) Monocytes % (Manual) Eosinophils % (Manual) Basophils % (Manual) Seg Neutrophils # Seg Neutrophils # Man Lymphocytes # (Manual) Monocytes # (Manual) Eosinophils # (Manual) Nucleated RBC % Basophils # (Manual) PT 27.0 H INR 2.46 H APTT Heparin Anti-Xa Level ABG pH POC ABG pO2 ABG pO2 ABG HCO3 ABG O2 Saturation ABG Base Excess POC ABG pCO2 ABG Hemoglobin ABG Oxyhemoglobin ABG Sodium ABG Chloride ABG Glucose Oxyhemoglobin Sodium Potassium Chloride Carbon Dioxide BUN Creatinine Glucose POC Glucose 109 H Lactic Acid Calcium Phosphorus Magnesium AST 424 H ALT 796 H Lactate Dehydrogenase Total Bilirubin 1.60 H Direct Bilirubin 1.2 H CK-MB (CK-2) C-Reactive Protein NT-Pro-B Natriuret Pep Total Protein Albumin 2.9 L Arterial Blood Glucose Urine WBC (Auto) Urine Creatinine Digoxin 02/08/20 02/08/20 02/08/20 12:14 17:44 19:00 WBC RBC Hgb Hct MCHC RDW MCV MCH Lymph % (Auto) [place] % (Auto) [place] # Eos # Lymph # (Auto) [place] # (Auto) Eos # (Auto) Seg Neutrophils % Seg Neuts % (Manual) Baso # (Auto) Lymphocytes % (Manual) Monocytes % (Manual) Eosinophils % (Manual) Basophils % (Manual) Seg Neutrophils # Seg Neutrophils # Man Lymphocytes # (Manual) Monocytes # (Manual) Eosinophils # (Manual) Nucleated RBC % Basophils # (Manual) PT INR APTT Heparin Anti-Xa Level ABG pH POC ABG pO2 ABG pO2 ABG HCO3 ABG O2 Saturation ABG Base Excess POC ABG pCO2 ABG Hemoglobin ABG Oxyhemoglobin ABG Sodium ABG Chloride ABG Glucose Oxyhemoglobin Sodium Potassium Chloride Carbon Dioxide BUN Creatinine Glucose POC Glucose 111 H 107 H Lactic Acid Calcium Phosphorus Magnesium AST 309 H ALT 650 H Lactate Dehydrogenase Total Bilirubin 1.30 H Direct Bilirubin 0.9 H CK-MB (CK-2) C-Reactive Protein NT-Pro-B Natriuret Pep Total Protein 6.2 L Albumin 2.7 L Arterial Blood Glucose Urine WBC (Auto) Urine Creatinine Digoxin 02/09/20 02/09/20 02/09/20 05:41 12:28 18:07 WBC RBC Hgb Hct MCHC RDW MCV MCH Lymph % (Auto) [place] % (Auto) [place] # Eos # Lymph # (Auto) [place] # (Auto) Eos # (Auto) Seg Neutrophils % Seg Neuts % (Manual) Baso # (Auto) Lymphocytes % (Manual) Monocytes % (Manual) Eosinophils % (Manual) Basophils % (Manual) Seg Neutrophils # Seg Neutrophils # Man Lymphocytes # (Manual) Monocytes # (Manual) Eosinophils # (Manual) Nucleated RBC % Basophils # (Manual) PT INR APTT Heparin Anti-Xa Level ABG pH POC ABG pO2 ABG pO2 ABG HCO3 ABG O2 Saturation ABG Base Excess POC ABG pCO2 ABG Hemoglobin ABG Oxyhemoglobin ABG Sodium ABG Chloride ABG Glucose Oxyhemoglobin Sodium Potassium Chloride Carbon Dioxide BUN Creatinine Glucose POC Glucose 113 H 140 H 143 H Lactic Acid Calcium Phosphorus Magnesium AST ALT Lactate Dehydrogenase Total Bilirubin Direct Bilirubin CK-MB (CK-2) C-Reactive Protein NT-Pro-B Natriuret Pep Total Protein Albumin Arterial Blood Glucose Urine WBC (Auto) Urine Creatinine Digoxin 02/09/20 02/09/20 02/10/20 21:40 23:45 06:00 WBC RBC Hgb Hct MCHC RDW MCV MCH Lymph % (Auto) [place] % (Auto) [place] # Eos # Lymph # (Auto) [place] # (Auto) Eos # (Auto) Seg Neutrophils % Seg Neuts % (Manual) Baso # (Auto) Lymphocytes % (Manual) Monocytes % (Manual) Eosinophils % (Manual) Basophils % (Manual) Seg Neutrophils # Seg Neutrophils # Man Lymphocytes # (Manual) Monocytes # (Manual) Eosinophils # (Manual) Nucleated RBC % Basophils # (Manual) PT INR APTT Heparin Anti-Xa Level ABG pH POC ABG pO2 ABG pO2 59.8 L ABG HCO3 33.3 H ABG O2 Saturation 88.9 L ABG Base Excess 7.4 H POC ABG pCO2 ABG Hemoglobin 10.4 L ABG Oxyhemoglobin ABG Sodium ABG Chloride ABG Glucose Oxyhemoglobin 86.3 L Sodium Potassium Chloride Carbon Dioxide BUN Creatinine Glucose POC Glucose 127 H 114 H Lactic Acid Calcium Phosphorus Magnesium AST ALT Lactate Dehydrogenase Total Bilirubin Direct Bilirubin CK-MB (CK-2) C-Reactive Protein NT-Pro-B Natriuret Pep Total Protein Albumin Arterial Blood Glucose Urine WBC (Auto) Urine Creatinine Digoxin 02/10/20 02/10/20 02/10/20 07:40 07:40 13:38 WBC 11.5 H RBC Hgb 10.6 L Hct 34.7 L MCHC 31 L RDW 19.8 H MCV 79 L MCH 24 L Lymph % (Auto) [place] % (Auto) 9.2 H [place] # Eos # Lymph # (Auto) [place] # (Auto) 1.1 H Eos # (Auto) Seg Neutrophils % Seg Neuts % (Manual) Baso # (Auto) Lymphocytes % (Manual) Monocytes % (Manual) Eosinophils % (Manual) Basophils % (Manual) Seg Neutrophils # Seg Neutrophils # Man Lymphocytes # (Manual) Monocytes # (Manual) Eosinophils # (Manual) Nucleated RBC % Basophils # (Manual) PT INR APTT Heparin Anti-Xa Level ABG pH POC ABG pO2 ABG pO2 ABG HCO3 ABG O2 Saturation ABG Base Excess POC ABG pCO2 ABG Hemoglobin ABG Oxyhemoglobin ABG Sodium ABG Chloride ABG Glucose Oxyhemoglobin Sodium 151 H Potassium Chloride 107.2 H Carbon Dioxide 36 H BUN 25 H Creatinine 0.7 L Glucose 114 H POC Glucose 116 H Lactic Acid Calcium Phosphorus Magnesium 2.40 H AST ALT Lactate Dehydrogenase Total Bilirubin Direct Bilirubin CK-MB (CK-2) C-Reactive Protein NT-Pro-B Natriuret Pep Total Protein Albumin Arterial Blood Glucose Urine WBC (Auto) Urine Creatinine Digoxin 02/10/20 02/11/20 02/11/20 17:44 05:47 12:21 WBC RBC Hgb Hct MCHC RDW MCV MCH Lymph % (Auto) [place] % (Auto) [place] # Eos # Lymph # (Auto) [place] # (Auto) Eos # (Auto) Seg Neutrophils % Seg Neuts % (Manual) Baso # (Auto) Lymphocytes % (Manual) Monocytes % (Manual) Eosinophils % (Manual) Basophils % (Manual) Seg Neutrophils # Seg Neutrophils # Man Lymphocytes # (Manual) Monocytes # (Manual) Eosinophils # (Manual) Nucleated RBC % Basophils # (Manual) PT INR APTT Heparin Anti-Xa Level ABG pH POC ABG pO2 ABG pO2 ABG HCO3 ABG O2 Saturation ABG Base Excess POC ABG pCO2 ABG Hemoglobin ABG Oxyhemoglobin ABG Sodium ABG Chloride ABG Glucose Oxyhemoglobin Sodium Potassium Chloride Carbon Dioxide BUN Creatinine Glucose POC Glucose 139 H 173 H 143 H Lactic Acid Calcium Phosphorus Magnesium AST ALT Lactate Dehydrogenase Total Bilirubin Direct Bilirubin CK-MB (CK-2) C-Reactive Protein NT-Pro-B Natriuret Pep Total Protein Albumin Arterial Blood Glucose Urine WBC (Auto) Urine Creatinine Digoxin 02/11/20 02/11/20 02/12/20 13:43 14:11 00:15 WBC RBC Hgb Hct MCHC RDW MCV MCH Lymph % (Auto) [place] % (Auto) [place] # Eos # Lymph # (Auto) [place] # (Auto) Eos # (Auto) Seg Neutrophils % Seg Neuts % (Manual) Baso # (Auto) Lymphocytes % (Manual) Monocytes % (Manual) Eosinophils % (Manual) Basophils % (Manual) Seg Neutrophils # Seg Neutrophils # Man Lymphocytes # (Manual) Monocytes # (Manual) Eosinophils # (Manual) Nucleated RBC % Basophils # (Manual) PT INR APTT Heparin Anti-Xa Level ABG pH 7.502 H POC ABG pO2 77.7 L ABG pO2 ABG HCO3 ABG O2 Saturation ABG Base Excess POC ABG pCO2 ABG Hemoglobin 11.1 L ABG Oxyhemoglobin ABG Sodium ABG Chloride 108.0 H ABG Glucose 151 H Oxyhemoglobin Sodium Potassium Chloride Carbon Dioxide BUN Creatinine Glucose POC Glucose 130 H 125 H Lactic Acid Calcium Phosphorus Magnesium AST ALT Lactate Dehydrogenase Total Bilirubin Direct Bilirubin CK-MB (CK-2) C-Reactive Protein NT-Pro-B Natriuret Pep Total Protein Albumin Arterial Blood Glucose 151 H Urine WBC (Auto) Urine Creatinine Digoxin 02/12/20 02/12/20 02/12/20 04:56 04:56 17:42 WBC RBC Hgb 9.9 L Hct 31.8 L MCHC 31 L RDW 19.4 H MCV 79 L MCH 25 L Lymph % (Auto) [place] % (Auto) 10.3 H [place] # Eos # Lymph # (Auto) [place] # (Auto) 1.0 H Eos # (Auto) Seg Neutrophils % Seg Neuts % (Manual) Baso # (Auto) Lymphocytes % (Manual) Monocytes % (Manual) Eosinophils % (Manual) Basophils % (Manual) Seg Neutrophils # Seg Neutrophils # Man Lymphocytes # (Manual) Monocytes # (Manual) Eosinophils # (Manual) Nucleated RBC % Basophils # (Manual) PT INR APTT Heparin Anti-Xa Level ABG pH POC ABG pO2 ABG pO2 ABG HCO3 ABG O2 Saturation ABG Base Excess POC ABG pCO2 ABG Hemoglobin ABG Oxyhemoglobin ABG Sodium ABG Chloride ABG Glucose Oxyhemoglobin Sodium 149 H Potassium Chloride 108.6 H Carbon Dioxide BUN 28 H Creatinine 0.7 L Glucose 108 H POC Glucose 113 H Lactic Acid Calcium Phosphorus Magnesium AST ALT Lactate Dehydrogenase Total Bilirubin Direct Bilirubin CK-MB (CK-2) C-Reactive Protein NT-Pro-B Natriuret Pep Total Protein Albumin Arterial Blood Glucose Urine WBC (Auto) Urine Creatinine Digoxin 02/13/20 02/13/20 02/13/20 00:39 05:36 12:25 WBC RBC Hgb Hct MCHC RDW MCV MCH Lymph % (Auto) [place] % (Auto) [place] # Eos # Lymph # (Auto) [place] # (Auto) Eos # (Auto) Seg Neutrophils % Seg Neuts % (Manual) Baso # (Auto) Lymphocytes % (Manual) Monocytes % (Manual) Eosinophils % (Manual) Basophils % (Manual) Seg Neutrophils # Seg Neutrophils # Man Lymphocytes # (Manual) Monocytes # (Manual) Eosinophils # (Manual) Nucleated RBC % Basophils # (Manual) PT INR APTT Heparin Anti-Xa Level ABG pH POC ABG pO2 ABG pO2 ABG HCO3 ABG O2 Saturation ABG Base Excess POC ABG pCO2 ABG Hemoglobin ABG Oxyhemoglobin ABG Sodium ABG Chloride ABG Glucose Oxyhemoglobin Sodium Potassium Chloride Carbon Dioxide BUN Creatinine Glucose POC Glucose 129 H 126 H 129 H Lactic Acid Calcium Phosphorus Magnesium AST ALT Lactate Dehydrogenase Total Bilirubin Direct Bilirubin CK-MB (CK-2) C-Reactive Protein NT-Pro-B Natriuret Pep Total Protein Albumin Arterial Blood Glucose Urine WBC (Auto) Urine Creatinine Digoxin 02/13/20 02/14/20 02/14/20 17:59 00:15 05:41 WBC RBC Hgb Hct MCHC RDW MCV MCH Lymph % (Auto) [place] % (Auto) [place] # Eos # Lymph # (Auto) [place] # (Auto) Eos # (Auto) Seg Neutrophils % Seg Neuts % (Manual) Baso # (Auto) Lymphocytes % (Manual) Monocytes % (Manual) Eosinophils % (Manual) Basophils % (Manual) Seg Neutrophils # Seg Neutrophils # Man Lymphocytes # (Manual) Monocytes # (Manual) Eosinophils # (Manual) Nucleated RBC % Basophils # (Manual) PT INR APTT Heparin Anti-Xa Level ABG pH POC ABG pO2 ABG pO2 ABG HCO3 ABG O2 Saturation ABG Base Excess POC ABG pCO2 ABG Hemoglobin ABG Oxyhemoglobin ABG Sodium ABG Chloride ABG Glucose Oxyhemoglobin Sodium Potassium Chloride Carbon Dioxide BUN Creatinine Glucose POC Glucose 153 H 130 H 130 H Lactic Acid Calcium Phosphorus Magnesium AST ALT Lactate Dehydrogenase Total Bilirubin Direct Bilirubin CK-MB (CK-2) C-Reactive Protein NT-Pro-B Natriuret Pep Total Protein Albumin Arterial Blood Glucose Urine WBC (Auto) Urine Creatinine Digoxin 02/14/20 02/15/20 02/15/20 11:32 00:12 05:27 WBC RBC Hgb Hct MCHC RDW MCV MCH Lymph % (Auto) [place] % (Auto) [place] # Eos # Lymph # (Auto) [place] # (Auto) Eos # (Auto) Seg Neutrophils % Seg Neuts % (Manual) Baso # (Auto) Lymphocytes % (Manual) Monocytes % (Manual) Eosinophils % (Manual) Basophils % (Manual) Seg Neutrophils # Seg Neutrophils # Man Lymphocytes # (Manual) Monocytes # (Manual) Eosinophils # (Manual) Nucleated RBC % Basophils # (Manual) PT INR APTT Heparin Anti-Xa Level ABG pH POC ABG pO2 ABG pO2 ABG HCO3 ABG O2 Saturation ABG Base Excess POC ABG pCO2 ABG Hemoglobin ABG Oxyhemoglobin ABG Sodium ABG Chloride ABG Glucose Oxyhemoglobin Sodium Potassium Chloride Carbon Dioxide BUN Creatinine Glucose POC Glucose 157 H 124 H 111 H Lactic Acid Calcium Phosphorus Magnesium AST ALT Lactate Dehydrogenase Total Bilirubin Direct Bilirubin CK-MB (CK-2) C-Reactive Protein NT-Pro-B Natriuret Pep Total Protein Albumin Arterial Blood Glucose Urine WBC (Auto) Urine Creatinine Digoxin 11/23/20 11/23/20 11/23/20 06:59 06:59 11:14 WBC RBC Hgb 10.4 L Hct 33.7 L MCHC 31 L RDW 19.4 H MCV 80 L MCH 24 L Lymph % (Auto) [place] % (Auto) [place] # Eos # Lymph # (Auto) [place] # (Auto) Eos # (Auto) Seg Neutrophils % Seg Neuts % (Manual) Baso # (Auto) Lymphocytes % (Manual) Monocytes % (Manual) Eosinophils % (Manual) Basophils % (Manual) 2.0 H Seg Neutrophils # Seg Neutrophils # Man Lymphocytes # (Manual) Monocytes # (Manual) Eosinophils # (Manual) Nucleated RBC % 1.0 H Basophils # (Manual) 0.2 H PT INR APTT Heparin Anti-Xa Level ABG pH POC ABG pO2 ABG pO2 ABG HCO3 ABG O2 Saturation ABG Base Excess POC ABG pCO2 ABG Hemoglobin ABG Oxyhemoglobin ABG Sodium ABG Chloride ABG Glucose Oxyhemoglobin Sodium 149 H Potassium Chloride 108.4 H Carbon Dioxide 31 H BUN 40 H Creatinine 0.7 L Glucose 150 H POC Glucose 128 H Lactic Acid Calcium Phosphorus Magnesium AST ALT Lactate Dehydrogenase Total Bilirubin Direct Bilirubin CK-MB (CK-2) C-Reactive Protein NT-Pro-B Natriuret Pep Total Protein Albumin Arterial Blood Glucose Urine WBC (Auto) Urine Creatinine Digoxin 02/15/20 02/15/20 02/16/20 17:46 23:50 05:03 WBC RBC Hgb Hct MCHC RDW MCV MCH Lymph % (Auto) [place] % (Auto) [place] # Eos # Lymph # (Auto) [place] # (Auto) Eos # (Auto) Seg Neutrophils % Seg Neuts % (Manual) Baso # (Auto) Lymphocytes % (Manual) Monocytes % (Manual) Eosinophils % (Manual) Basophils % (Manual) Seg Neutrophils # Seg Neutrophils # Man Lymphocytes # (Manual) Monocytes # (Manual) Eosinophils # (Manual) Nucleated RBC % Basophils # (Manual) PT INR APTT Heparin Anti-Xa Level ABG pH POC ABG pO2 ABG pO2 ABG HCO3 ABG O2 Saturation ABG Base Excess POC ABG pCO2 ABG Hemoglobin ABG Oxyhemoglobin ABG Sodium ABG Chloride ABG Glucose Oxyhemoglobin Sodium Potassium Chloride Carbon Dioxide BUN Creatinine Glucose POC Glucose 154 H 135 H 148 H Lactic Acid Calcium Phosphorus Magnesium AST ALT Lactate Dehydrogenase Total Bilirubin Direct Bilirubin CK-MB (CK-2) C-Reactive Protein NT-Pro-B Natriuret Pep Total Protein Albumin Arterial Blood Glucose Urine WBC (Auto) Urine Creatinine Digoxin 02/16/20 02/16/20 02/16/20 07:53 11:28 17:52 WBC RBC Hgb Hct MCHC RDW MCV MCH Lymph % (Auto) [place] % (Auto) [place] # Eos # Lymph # (Auto) [place] # (Auto) Eos # (Auto) Seg Neutrophils % Seg Neuts % (Manual) Baso # (Auto) Lymphocytes % (Manual) Monocytes % (Manual) Eosinophils % (Manual) Basophils % (Manual) Seg Neutrophils # Seg Neutrophils # Man Lymphocytes # (Manual) Monocytes # (Manual) Eosinophils # (Manual) Nucleated RBC % Basophils # (Manual) PT INR APTT Heparin Anti-Xa Level ABG pH POC ABG pO2 ABG pO2 ABG HCO3 ABG O2 Saturation ABG Base Excess POC ABG pCO2 ABG Hemoglobin ABG Oxyhemoglobin ABG Sodium ABG Chloride ABG Glucose Oxyhemoglobin Sodium Potassium Chloride 107.9 H Carbon Dioxide BUN 38 H Creatinine 0.6 L Glucose 151 H POC Glucose 123 H 152 H Lactic Acid Calcium Phosphorus Magnesium AST ALT Lactate Dehydrogenase Total Bilirubin Direct Bilirubin CK-MB (CK-2) C-Reactive Protein NT-Pro-B Natriuret Pep Total Protein Albumin Arterial Blood Glucose Urine WBC (Auto) Urine Creatinine Digoxin 02/16/20 02/17/20 02/17/20 23:49 06:24 11:36 WBC RBC Hgb Hct MCHC RDW MCV MCH Lymph % (Auto) [place] % (Auto) [place] # Eos # Lymph # (Auto) [place] # (Auto) Eos # (Auto) Seg Neutrophils % Seg Neuts % (Manual) Baso # (Auto) Lymphocytes % (Manual) Monocytes % (Manual) Eosinophils % (Manual) Basophils % (Manual) Seg Neutrophils # Seg Neutrophils # Man Lymphocytes # (Manual) Monocytes # (Manual) Eosinophils # (Manual) Nucleated RBC % Basophils # (Manual) PT INR APTT Heparin Anti-Xa Level ABG pH POC ABG pO2 ABG pO2 ABG HCO3 ABG O2 Saturation ABG Base Excess POC ABG pCO2 ABG Hemoglobin ABG Oxyhemoglobin ABG Sodium ABG Chloride ABG Glucose Oxyhemoglobin Sodium Potassium Chloride Carbon Dioxide BUN Creatinine Glucose POC Glucose 156 H 193 H 162 H Lactic Acid Calcium Phosphorus Magnesium AST ALT Lactate Dehydrogenase Total Bilirubin Direct Bilirubin CK-MB (CK-2) C-Reactive Protein NT-Pro-B Natriuret Pep Total Protein Albumin Arterial Blood Glucose Urine WBC (Auto) Urine Creatinine Digoxin 02/17/20 02/17/20 02/18/20 17:55 23:28 05:11 WBC RBC Hgb Hct MCHC RDW MCV MCH Lymph % (Auto) [place] % (Auto) [place] # Eos # Lymph # (Auto) [place] # (Auto) Eos # (Auto) Seg Neutrophils % Seg Neuts % (Manual) Baso # (Auto) Lymphocytes % (Manual) Monocytes % (Manual) Eosinophils % (Manual) Basophils % (Manual) Seg Neutrophils # Seg Neutrophils # Man Lymphocytes # (Manual) Monocytes # (Manual) Eosinophils # (Manual) Nucleated RBC % Basophils # (Manual) PT INR APTT Heparin Anti-Xa Level ABG pH POC ABG pO2 ABG pO2 ABG HCO3 ABG O2 Saturation ABG Base Excess POC ABG pCO2 ABG Hemoglobin ABG Oxyhemoglobin ABG Sodium ABG Chloride ABG Glucose Oxyhemoglobin Sodium Potassium Chloride Carbon Dioxide BUN Creatinine Glucose POC Glucose 165 H 146 H 122 H Lactic Acid Calcium Phosphorus Magnesium AST ALT Lactate Dehydrogenase Total Bilirubin Direct Bilirubin CK-MB (CK-2) C-Reactive Protein NT-Pro-B Natriuret Pep Total Protein Albumin Arterial Blood Glucose Urine WBC (Auto) Urine Creatinine Digoxin 02/18/20 02/18/20 02/19/20 12:24 17:29 00:01 WBC RBC Hgb Hct MCHC RDW MCV MCH Lymph % (Auto) [place] % (Auto) [place] # Eos # Lymph # (Auto) [place] # (Auto) Eos # (Auto) Seg Neutrophils % Seg Neuts % (Manual) Baso # (Auto) Lymphocytes % (Manual) Monocytes % (Manual) Eosinophils % (Manual) Basophils % (Manual) Seg Neutrophils # Seg Neutrophils # Man Lymphocytes # (Manual) Monocytes # (Manual) Eosinophils # (Manual) Nucleated RBC % Basophils # (Manual) PT INR APTT Heparin Anti-Xa Level ABG pH POC ABG pO2 ABG pO2 ABG HCO3 ABG O2 Saturation ABG Base Excess POC ABG pCO2 ABG Hemoglobin ABG Oxyhemoglobin ABG Sodium ABG Chloride ABG Glucose Oxyhemoglobin Sodium Potassium Chloride Carbon Dioxide BUN Creatinine Glucose POC Glucose 162 H 136 H 145 H Lactic Acid Calcium Phosphorus Magnesium AST ALT Lactate Dehydrogenase Total Bilirubin Direct Bilirubin CK-MB (CK-2) C-Reactive Protein NT-Pro-B Natriuret Pep Total Protein Albumin Arterial Blood Glucose Urine WBC (Auto) Urine Creatinine Digoxin 02/19/20 02/19/20 02/19/20 05:53 11:44 17:32 WBC RBC Hgb Hct MCHC RDW MCV MCH Lymph % (Auto) [place] % (Auto) [place] # Eos # Lymph # (Auto) [place] # (Auto) Eos # (Auto) Seg Neutrophils % Seg Neuts % (Manual) Baso # (Auto) Lymphocytes % (Manual) Monocytes % (Manual) Eosinophils % (Manual) Basophils % (Manual) Seg Neutrophils # Seg Neutrophils # Man Lymphocytes # (Manual) Monocytes # (Manual) Eosinophils # (Manual) Nucleated RBC % Basophils # (Manual) PT INR APTT Heparin Anti-Xa Level ABG pH POC ABG pO2 ABG pO2 ABG HCO3 ABG O2 Saturation ABG Base Excess POC ABG pCO2 ABG Hemoglobin ABG Oxyhemoglobin ABG Sodium ABG Chloride ABG Glucose Oxyhemoglobin Sodium Potassium Chloride Carbon Dioxide BUN Creatinine Glucose POC Glucose 116 H 120 H 154 H Lactic Acid Calcium Phosphorus Magnesium AST ALT Lactate Dehydrogenase Total Bilirubin Direct Bilirubin CK-MB (CK-2) C-Reactive Protein NT-Pro-B Natriuret Pep Total Protein Albumin Arterial Blood Glucose Urine WBC (Auto) Urine Creatinine Digoxin 02/19/20 02/20/20 02/20/20 23:43 00:24 00:24 WBC RBC Hgb 9.4 L Hct 30.0 L MCHC 31 L RDW 20.4 H MCV 79 L MCH 25 L Lymph % (Auto) [place] % (Auto) 8.5 H [place] # Eos # Lymph # (Auto) [place] # (Auto) Eos # (Auto) Seg Neutrophils % Seg Neuts % (Manual) Baso # (Auto) Lymphocytes % (Manual) Monocytes % (Manual) Eosinophils % (Manual) Basophils % (Manual) Seg Neutrophils # Seg Neutrophils # Man Lymphocytes # (Manual) Monocytes # (Manual) Eosinophils # (Manual) Nucleated RBC % Basophils # (Manual) PT INR APTT Heparin Anti-Xa Level ABG pH POC ABG pO2 ABG pO2 ABG HCO3 ABG O2 Saturation ABG Base Excess POC ABG pCO2 ABG Hemoglobin ABG Oxyhemoglobin ABG Sodium ABG Chloride ABG Glucose Oxyhemoglobin Sodium 147 H Potassium 3.4 L Chloride Carbon Dioxide 31 H BUN 34 H Creatinine 0.5 L Glucose 135 H POC Glucose 122 H Lactic Acid Calcium Phosphorus Magnesium AST ALT Lactate Dehydrogenase Total Bilirubin Direct Bilirubin CK-MB (CK-2) C-Reactive Protein NT-Pro-B Natriuret Pep Total Protein Albumin Arterial Blood Glucose Urine WBC (Auto) Urine Creatinine Digoxin 02/20/20 02/20/20 02/20/20 06:07 06:45 12:03 WBC RBC Hgb Hct MCHC RDW MCV MCH Lymph % (Auto) [place] % (Auto) [place] # Eos # Lymph # (Auto) [place] # (Auto) Eos # (Auto) Seg Neutrophils % Seg Neuts % (Manual) Baso # (Auto) Lymphocytes % (Manual) Monocytes % (Manual) Eosinophils % (Manual) Basophils % (Manual) Seg Neutrophils # Seg Neutrophils # Man Lymphocytes # (Manual) Monocytes # (Manual) Eosinophils # (Manual) Nucleated RBC % Basophils # (Manual) PT INR APTT Heparin Anti-Xa Level ABG pH 7.461 H POC ABG pO2 ABG pO2 ABG HCO3 33.3 H ABG O2 Saturation ABG Base Excess 8.4 H POC ABG pCO2 ABG Hemoglobin 10.0 L ABG Oxyhemoglobin ABG Sodium ABG Chloride ABG Glucose Oxyhemoglobin 94.1 L Sodium Potassium Chloride Carbon Dioxide BUN Creatinine Glucose POC Glucose 109 H 128 H Lactic Acid Calcium Phosphorus Magnesium AST ALT Lactate Dehydrogenase Total Bilirubin Direct Bilirubin CK-MB (CK-2) C-Reactive Protein NT-Pro-B Natriuret Pep Total Protein Albumin Arterial Blood Glucose Urine WBC (Auto) Urine Creatinine Digoxin 02/20/20 02/20/20 02/21/20 18:02 23:55 05:42 WBC RBC Hgb Hct MCHC RDW MCV MCH Lymph % (Auto) [place] % (Auto) [place] # Eos # Lymph # (Auto) [place] # (Auto) Eos # (Auto) Seg Neutrophils % Seg Neuts % (Manual) Baso # (Auto) Lymphocytes % (Manual) Monocytes % (Manual) Eosinophils % (Manual) Basophils % (Manual) Seg Neutrophils # Seg Neutrophils # Man Lymphocytes # (Manual) Monocytes # (Manual) Eosinophils # (Manual) Nucleated RBC % Basophils # (Manual) PT INR APTT Heparin Anti-Xa Level ABG pH POC ABG pO2 ABG pO2 ABG HCO3 ABG O2 Saturation ABG Base Excess POC ABG pCO2 ABG Hemoglobin ABG Oxyhemoglobin ABG Sodium ABG Chloride ABG Glucose Oxyhemoglobin Sodium Potassium Chloride Carbon Dioxide BUN Creatinine Glucose POC Glucose 118 H 125 H 127 H Lactic Acid Calcium Phosphorus Magnesium AST ALT Lactate Dehydrogenase Total Bilirubin Direct Bilirubin CK-MB (CK-2) C-Reactive Protein NT-Pro-B Natriuret Pep Total Protein Albumin Arterial Blood Glucose Urine WBC (Auto) Urine Creatinine Digoxin 02/21/20 02/21/20 02/21/20 12:10 17:35 23:40 WBC RBC Hgb Hct MCHC RDW MCV MCH Lymph % (Auto) [place] % (Auto) [place] # Eos # Lymph # (Auto) [place] # (Auto) Eos # (Auto) Seg Neutrophils % Seg Neuts % (Manual) Baso # (Auto) Lymphocytes % (Manual) Monocytes % (Manual) Eosinophils % (Manual) Basophils % (Manual) Seg Neutrophils # Seg Neutrophils # Man Lymphocytes # (Manual) Monocytes # (Manual) Eosinophils # (Manual) Nucleated RBC % Basophils # (Manual) PT INR APTT Heparin Anti-Xa Level ABG pH POC ABG pO2 ABG pO2 ABG HCO3 ABG O2 Saturation ABG Base Excess POC ABG pCO2 ABG Hemoglobin ABG Oxyhemoglobin ABG Sodium ABG Chloride ABG Glucose Oxyhemoglobin Sodium Potassium Chloride Carbon Dioxide BUN Creatinine Glucose POC Glucose 128 H 113 H 125 H Lactic Acid Calcium Phosphorus Magnesium AST ALT Lactate Dehydrogenase Total Bilirubin Direct Bilirubin CK-MB (CK-2) C-Reactive Protein NT-Pro-B Natriuret Pep Total Protein Albumin Arterial Blood Glucose Urine WBC (Auto) Urine Creatinine Digoxin 02/22/20 02/22/20 02/22/20 05:57 08:06 08:06 WBC RBC Hgb 10.8 L Hct 35.2 L MCHC 31 L RDW 21.8 H MCV 80 L MCH 25 L Lymph % (Auto) [place] % (Auto) [place] # Eos # Lymph # (Auto) [place] # (Auto) Eos # (Auto) Seg Neutrophils % 71.5 H Seg Neuts % (Manual) Baso # (Auto) Lymphocytes % (Manual) Monocytes % (Manual) Eosinophils % (Manual) Basophils % (Manual) Seg Neutrophils # Seg Neutrophils # Man Lymphocytes # (Manual) Monocytes # (Manual) Eosinophils # (Manual) Nucleated RBC % Basophils # (Manual) PT INR APTT Heparin Anti-Xa Level ABG pH POC ABG pO2 ABG pO2 ABG HCO3 ABG O2 Saturation ABG Base Excess POC ABG pCO2 ABG Hemoglobin ABG Oxyhemoglobin ABG Sodium ABG Chloride ABG Glucose Oxyhemoglobin Sodium 146 H Potassium Chloride Carbon Dioxide 34 H BUN 21 H Creatinine 0.4 L Glucose 149 H POC Glucose 138 H Lactic Acid Calcium Phosphorus Magnesium AST ALT Lactate Dehydrogenase Total Bilirubin Direct Bilirubin CK-MB (CK-2) C-Reactive Protein NT-Pro-B Natriuret Pep Total Protein Albumin Arterial Blood Glucose Urine WBC (Auto) Urine Creatinine Digoxin 02/22/20 02/22/20 02/22/20 11:47 17:11 23:25 WBC RBC Hgb Hct MCHC RDW MCV MCH Lymph % (Auto) [place] % (Auto) [place] # Eos # Lymph # (Auto) [place] # (Auto) Eos # (Auto) Seg Neutrophils % Seg Neuts % (Manual) Baso # (Auto) Lymphocytes % (Manual) Monocytes % (Manual) Eosinophils % (Manual) Basophils % (Manual) Seg Neutrophils # Seg Neutrophils # Man Lymphocytes # (Manual) Monocytes # (Manual) Eosinophils # (Manual) Nucleated RBC % Basophils # (Manual) PT INR APTT Heparin Anti-Xa Level ABG pH POC ABG pO2 ABG pO2 ABG HCO3 ABG O2 Saturation ABG Base Excess POC ABG pCO2 ABG Hemoglobin ABG Oxyhemoglobin ABG Sodium ABG Chloride ABG Glucose Oxyhemoglobin Sodium Potassium Chloride Carbon Dioxide BUN Creatinine Glucose POC Glucose 149 H 144 H 142 H Lactic Acid Calcium Phosphorus Magnesium AST ALT Lactate Dehydrogenase Total Bilirubin Direct Bilirubin CK-MB (CK-2) C-Reactive Protein NT-Pro-B Natriuret Pep Total Protein Albumin Arterial Blood Glucose Urine WBC (Auto) Urine Creatinine Digoxin 02/23/20 02/23/20 02/23/20 05:22 11:37 18:14 WBC RBC Hgb Hct MCHC RDW MCV MCH Lymph % (Auto) [place] % (Auto) [place] # Eos # Lymph # (Auto) [place] # (Auto) Eos # (Auto) Seg Neutrophils % Seg Neuts % (Manual) Baso # (Auto) Lymphocytes % (Manual) Monocytes % (Manual) Eosinophils % (Manual) Basophils % (Manual) Seg Neutrophils # Seg Neutrophils # Man Lymphocytes # (Manual) Monocytes # (Manual) Eosinophils # (Manual) Nucleated RBC % Basophils # (Manual) PT INR APTT Heparin Anti-Xa Level ABG pH POC ABG pO2 ABG pO2 ABG HCO3 ABG O2 Saturation ABG Base Excess POC ABG pCO2 ABG Hemoglobin ABG Oxyhemoglobin ABG Sodium ABG Chloride ABG Glucose Oxyhemoglobin Sodium Potassium Chloride Carbon Dioxide BUN Creatinine Glucose POC Glucose 144 H 113 H 127 H Lactic Acid Calcium Phosphorus Magnesium AST ALT Lactate Dehydrogenase Total Bilirubin Direct Bilirubin CK-MB (CK-2) C-Reactive Protein NT-Pro-B Natriuret Pep Total Protein Albumin Arterial Blood Glucose Urine WBC (Auto) Urine Creatinine Digoxin 02/23/20 02/24/20 02/24/20 23:45 05:50 11:24 WBC RBC Hgb Hct MCHC RDW MCV MCH Lymph % (Auto) [place] % (Auto) [place] # Eos # Lymph # (Auto) [place] # (Auto) Eos # (Auto) Seg Neutrophils % Seg Neuts % (Manual) Baso # (Auto) Lymphocytes % (Manual) Monocytes % (Manual) Eosinophils % (Manual) Basophils % (Manual) Seg Neutrophils # Seg Neutrophils # Man Lymphocytes # (Manual) Monocytes # (Manual) Eosinophils # (Manual) Nucleated RBC % Basophils # (Manual) PT INR APTT Heparin Anti-Xa Level ABG pH POC ABG pO2 ABG pO2 ABG HCO3 ABG O2 Saturation ABG Base Excess POC ABG pCO2 ABG Hemoglobin ABG Oxyhemoglobin ABG Sodium ABG Chloride ABG Glucose Oxyhemoglobin Sodium Potassium Chloride Carbon Dioxide BUN Creatinine Glucose POC Glucose 123 H 117 H 126 H Lactic Acid Calcium Phosphorus Magnesium AST ALT Lactate Dehydrogenase Total Bilirubin Direct Bilirubin CK-MB (CK-2) C-Reactive Protein NT-Pro-B Natriuret Pep Total Protein Albumin Arterial Blood Glucose Urine WBC (Auto) Urine Creatinine Digoxin 02/24/20 02/24/20 02/25/20 18:35 23:27 05:20 WBC RBC Hgb Hct MCHC RDW MCV MCH Lymph % (Auto) [place] % (Auto) [place] # Eos # Lymph # (Auto) [place] # (Auto) Eos # (Auto) Seg Neutrophils % Seg Neuts % (Manual) Baso # (Auto) Lymphocytes % (Manual) Monocytes % (Manual) Eosinophils % (Manual) Basophils % (Manual) Seg Neutrophils # Seg Neutrophils # Man Lymphocytes # (Manual) Monocytes # (Manual) Eosinophils # (Manual) Nucleated RBC % Basophils # (Manual) PT INR APTT Heparin Anti-Xa Level ABG pH POC ABG pO2 ABG pO2 ABG HCO3 ABG O2 Saturation ABG Base Excess POC ABG pCO2 ABG Hemoglobin ABG Oxyhemoglobin ABG Sodium ABG Chloride ABG Glucose Oxyhemoglobin Sodium Potassium Chloride Carbon Dioxide BUN Creatinine Glucose POC Glucose 121 H 127 H 133 H Lactic Acid Calcium Phosphorus Magnesium AST ALT Lactate Dehydrogenase Total Bilirubin Direct Bilirubin CK-MB (CK-2) C-Reactive Protein NT-Pro-B Natriuret Pep Total Protein Albumin Arterial Blood Glucose Urine WBC (Auto) Urine Creatinine Digoxin 02/25/20 02/25/20 02/25/20 12:08 17:26 23:33 WBC RBC Hgb Hct MCHC RDW MCV MCH Lymph % (Auto) [place] % (Auto) [place] # Eos # Lymph # (Auto) [place] # (Auto) Eos # (Auto) Seg Neutrophils % Seg Neuts % (Manual) Baso # (Auto) Lymphocytes % (Manual) Monocytes % (Manual) Eosinophils % (Manual) Basophils % (Manual) Seg Neutrophils # Seg Neutrophils # Man Lymphocytes # (Manual) Monocytes # (Manual) Eosinophils # (Manual) Nucleated RBC % Basophils # (Manual) PT INR APTT Heparin Anti-Xa Level ABG pH POC ABG pO2 ABG pO2 ABG HCO3 ABG O2 Saturation ABG Base Excess POC ABG pCO2 ABG Hemoglobin ABG Oxyhemoglobin ABG Sodium ABG Chloride ABG Glucose Oxyhemoglobin Sodium Potassium Chloride Carbon Dioxide BUN Creatinine Glucose POC Glucose 109 H 120 H 120 H Lactic Acid Calcium Phosphorus Magnesium AST ALT Lactate Dehydrogenase Total Bilirubin Direct Bilirubin CK-MB (CK-2) C-Reactive Protein NT-Pro-B Natriuret Pep Total Protein Albumin Arterial Blood Glucose Urine WBC (Auto) Urine Creatinine Digoxin 02/26/20 02/26/20 02/27/20 05:33 07:50 12:13 WBC RBC Hgb Hct MCHC RDW MCV MCH Lymph % (Auto) [place] % (Auto) [place] # Eos # Lymph # (Auto) [place] # (Auto) Eos # (Auto) Seg Neutrophils % Seg Neuts % (Manual) Baso # (Auto) Lymphocytes % (Manual) Monocytes % (Manual) Eosinophils % (Manual) Basophils % (Manual) Seg Neutrophils # Seg Neutrophils # Man Lymphocytes # (Manual) Monocytes # (Manual) Eosinophils # (Manual) Nucleated RBC % Basophils # (Manual) PT INR APTT Heparin Anti-Xa Level ABG pH POC ABG pO2 ABG pO2 ABG HCO3 ABG O2 Saturation ABG Base Excess POC ABG pCO2 ABG Hemoglobin ABG Oxyhemoglobin ABG Sodium ABG Chloride ABG Glucose Oxyhemoglobin Sodium Potassium Chloride Carbon Dioxide BUN Creatinine Glucose POC Glucose 106 H 130 H Lactic Acid Calcium Phosphorus Magnesium AST ALT Lactate Dehydrogenase Total Bilirubin Direct Bilirubin CK-MB (CK-2) C-Reactive Protein NT-Pro-B Natriuret Pep Total Protein Albumin Arterial Blood Glucose Urine WBC (Auto) > 182.0 H Urine Creatinine Digoxin 02/27/20 02/27/20 02/28/20 18:20 23:33 05:01 WBC RBC Hgb Hct MCHC RDW MCV MCH Lymph % (Auto) [place] % (Auto) [place] # Eos # Lymph # (Auto) [place] # (Auto) Eos # (Auto) Seg Neutrophils % Seg Neuts % (Manual) Baso # (Auto) Lymphocytes % (Manual) Monocytes % (Manual) Eosinophils % (Manual) Basophils % (Manual) Seg Neutrophils # Seg Neutrophils # Man Lymphocytes # (Manual) Monocytes # (Manual) Eosinophils # (Manual) Nucleated RBC % Basophils # (Manual) PT INR APTT Heparin Anti-Xa Level ABG pH POC ABG pO2 ABG pO2 ABG HCO3 ABG O2 Saturation ABG Base Excess POC ABG pCO2 ABG Hemoglobin ABG Oxyhemoglobin ABG Sodium ABG Chloride ABG Glucose Oxyhemoglobin Sodium Potassium Chloride Carbon Dioxide BUN Creatinine Glucose POC Glucose 109 H 124 H 134 H Lactic Acid Calcium Phosphorus Magnesium AST ALT Lactate Dehydrogenase Total Bilirubin Direct Bilirubin CK-MB (CK-2) C-Reactive Protein NT-Pro-B Natriuret Pep Total Protein Albumin Arterial Blood Glucose Urine WBC (Auto) Urine Creatinine Digoxin 02/28/20 02/28/20 02/28/20 11:54 18:16 23:03 WBC RBC Hgb Hct MCHC RDW MCV MCH Lymph % (Auto) [place] % (Auto) [place] # Eos # Lymph # (Auto) [place] # (Auto) Eos # (Auto) Seg Neutrophils % Seg Neuts % (Manual) Baso # (Auto) Lymphocytes % (Manual) Monocytes % (Manual) Eosinophils % (Manual) Basophils % (Manual) Seg Neutrophils # Seg Neutrophils # Man Lymphocytes # (Manual) Monocytes # (Manual) Eosinophils # (Manual) Nucleated RBC % Basophils # (Manual) PT INR APTT Heparin Anti-Xa Level ABG pH POC ABG pO2 ABG pO2 ABG HCO3 ABG O2 Saturation ABG Base Excess POC ABG pCO2 ABG Hemoglobin ABG Oxyhemoglobin ABG Sodium ABG Chloride ABG Glucose Oxyhemoglobin Sodium Potassium Chloride Carbon Dioxide BUN Creatinine Glucose POC Glucose 133 H 134 H 146 H Lactic Acid Calcium Phosphorus Magnesium AST ALT Lactate Dehydrogenase Total Bilirubin Direct Bilirubin CK-MB (CK-2) C-Reactive Protein NT-Pro-B Natriuret Pep Total Protein Albumin Arterial Blood Glucose Urine WBC (Auto) Urine Creatinine Digoxin 02/29/20 02/29/20 02/29/20 05:24 11:34 17:12 WBC RBC Hgb Hct MCHC RDW MCV MCH Lymph % (Auto) [place] % (Auto) [place] # Eos # Lymph # (Auto) [place] # (Auto) Eos # (Auto) Seg Neutrophils % Seg Neuts % (Manual) Baso # (Auto) Lymphocytes % (Manual) Monocytes % (Manual) Eosinophils % (Manual) Basophils % (Manual) Seg Neutrophils # Seg Neutrophils # Man Lymphocytes # (Manual) Monocytes # (Manual) Eosinophils # (Manual) Nucleated RBC % Basophils # (Manual) PT INR APTT Heparin Anti-Xa Level ABG pH POC ABG pO2 ABG pO2 ABG HCO3 ABG O2 Saturation ABG Base Excess POC ABG pCO2 ABG Hemoglobin ABG Oxyhemoglobin ABG Sodium ABG Chloride ABG Glucose Oxyhemoglobin Sodium Potassium Chloride Carbon Dioxide BUN Creatinine Glucose POC Glucose 139 H 141 H 157 H Lactic Acid Calcium Phosphorus Magnesium AST ALT Lactate Dehydrogenase Total Bilirubin Direct Bilirubin CK-MB (CK-2) C-Reactive Protein NT-Pro-B Natriuret Pep Total Protein Albumin Arterial Blood Glucose Urine WBC (Auto) Urine Creatinine Digoxin 02/29/20 03/01/20 03/01/20 23:35 06:00 11:53 WBC RBC Hgb Hct MCHC RDW MCV MCH Lymph % (Auto) [place] % (Auto) [place] # Eos # Lymph # (Auto) [place] # (Auto) Eos # (Auto) Seg Neutrophils % Seg Neuts % (Manual) Baso # (Auto) Lymphocytes % (Manual) Monocytes % (Manual) Eosinophils % (Manual) Basophils % (Manual) Seg Neutrophils # Seg Neutrophils # Man Lymphocytes # (Manual) Monocytes # (Manual) Eosinophils # (Manual) Nucleated RBC % Basophils # (Manual) PT INR APTT Heparin Anti-Xa Level ABG pH POC ABG pO2 ABG pO2 ABG HCO3 ABG O2 Saturation ABG Base Excess POC ABG pCO2 ABG Hemoglobin ABG Oxyhemoglobin ABG Sodium ABG Chloride ABG Glucose Oxyhemoglobin Sodium Potassium Chloride Carbon Dioxide BUN Creatinine Glucose POC Glucose 120 H 132 H 136 H Lactic Acid Calcium Phosphorus Magnesium AST ALT Lactate Dehydrogenase Total Bilirubin Direct Bilirubin CK-MB (CK-2) C-Reactive Protein NT-Pro-B Natriuret Pep Total Protein Albumin Arterial Blood Glucose Urine WBC (Auto) Urine Creatinine Digoxin 03/01/20 03/01/20 03/02/20 17:36 23:16 05:12 WBC RBC Hgb Hct MCHC RDW MCV MCH Lymph % (Auto) [place] % (Auto) [place] # Eos # Lymph # (Auto) [place] # (Auto) Eos # (Auto) Seg Neutrophils % Seg Neuts % (Manual) Baso # (Auto) Lymphocytes % (Manual) Monocytes % (Manual) Eosinophils % (Manual) Basophils % (Manual) Seg Neutrophils # Seg Neutrophils # Man Lymphocytes # (Manual) Monocytes # (Manual) Eosinophils # (Manual) Nucleated RBC % Basophils # (Manual) PT INR APTT Heparin Anti-Xa Level ABG pH POC ABG pO2 ABG pO2 ABG HCO3 ABG O2 Saturation ABG Base Excess POC ABG pCO2 ABG Hemoglobin ABG Oxyhemoglobin ABG Sodium ABG Chloride ABG Glucose Oxyhemoglobin Sodium Potassium Chloride Carbon Dioxide BUN Creatinine Glucose POC Glucose 171 H 164 H 176 H Lactic Acid Calcium Phosphorus Magnesium AST ALT Lactate Dehydrogenase Total Bilirubin Direct Bilirubin CK-MB (CK-2) C-Reactive Protein NT-Pro-B Natriuret Pep Total Protein Albumin Arterial Blood Glucose Urine WBC (Auto) Urine Creatinine Digoxin 03/02/20 03/02/20 03/03/20 11:42 18:01 00:06 WBC RBC Hgb Hct MCHC RDW MCV MCH Lymph % (Auto) [place] % (Auto) [place] # Eos # Lymph # (Auto) [place] # (Auto) Eos # (Auto) Seg Neutrophils % Seg Neuts % (Manual) Baso # (Auto) Lymphocytes % (Manual) Monocytes % (Manual) Eosinophils % (Manual) Basophils % (Manual) Seg Neutrophils # Seg Neutrophils # Man Lymphocytes # (Manual) Monocytes # (Manual) Eosinophils # (Manual) Nucleated RBC % Basophils # (Manual) PT INR APTT Heparin Anti-Xa Level ABG pH POC ABG pO2 ABG pO2 ABG HCO3 ABG O2 Saturation ABG Base Excess POC ABG pCO2 ABG Hemoglobin ABG Oxyhemoglobin ABG Sodium ABG Chloride ABG Glucose Oxyhemoglobin Sodium Potassium Chloride Carbon Dioxide BUN Creatinine Glucose POC Glucose 150 H 156 H 156 H Lactic Acid Calcium Phosphorus Magnesium AST ALT Lactate Dehydrogenase Total Bilirubin Direct Bilirubin CK-MB (CK-2) C-Reactive Protein NT-Pro-B Natriuret Pep Total Protein Albumin Arterial Blood Glucose Urine WBC (Auto) Urine Creatinine Digoxin 03/03/20 03/03/20 03/03/20 03:31 11:20 16:55 WBC RBC Hgb Hct MCHC RDW MCV MCH Lymph % (Auto) [place] % (Auto) [place] # Eos # Lymph # (Auto) [place] # (Auto) Eos # (Auto) Seg Neutrophils % Seg Neuts % (Manual) Baso # (Auto) Lymphocytes % (Manual) Monocytes % (Manual) Eosinophils % (Manual) Basophils % (Manual) Seg Neutrophils # Seg Neutrophils # Man Lymphocytes # (Manual) Monocytes # (Manual) Eosinophils # (Manual) Nucleated RBC % Basophils # (Manual) PT INR APTT Heparin Anti-Xa Level ABG pH POC ABG pO2 ABG pO2 ABG HCO3 ABG O2 Saturation ABG Base Excess POC ABG pCO2 ABG Hemoglobin ABG Oxyhemoglobin ABG Sodium ABG Chloride ABG Glucose Oxyhemoglobin Sodium Potassium Chloride Carbon Dioxide BUN Creatinine Glucose POC Glucose 164 H 125 H 211 H Lactic Acid Calcium Phosphorus Magnesium AST ALT Lactate Dehydrogenase Total Bilirubin Direct Bilirubin CK-MB (CK-2) C-Reactive Protein NT-Pro-B Natriuret Pep Total Protein Albumin Arterial Blood Glucose Urine WBC (Auto) Urine Creatinine Digoxin 03/04/20 03/04/20 03/04/20 00:29 05:20 12:09 WBC RBC Hgb Hct MCHC RDW MCV MCH Lymph % (Auto) [place] % (Auto) [place] # Eos # Lymph # (Auto) [place] # (Auto) Eos # (Auto) Seg Neutrophils % Seg Neuts % (Manual) Baso # (Auto) Lymphocytes % (Manual) Monocytes % (Manual) Eosinophils % (Manual) Basophils % (Manual) Seg Neutrophils # Seg Neutrophils # Man Lymphocytes # (Manual) Monocytes # (Manual) Eosinophils # (Manual) Nucleated RBC % Basophils # (Manual) PT INR APTT Heparin Anti-Xa Level ABG pH POC ABG pO2 ABG pO2 ABG HCO3 ABG O2 Saturation ABG Base Excess POC ABG pCO2 ABG Hemoglobin ABG Oxyhemoglobin ABG Sodium ABG Chloride ABG Glucose Oxyhemoglobin Sodium Potassium Chloride Carbon Dioxide BUN Creatinine Glucose POC Glucose 169 H 154 H 197 H Lactic Acid Calcium Phosphorus Magnesium AST ALT Lactate Dehydrogenase Total Bilirubin Direct Bilirubin CK-MB (CK-2) C-Reactive Protein NT-Pro-B Natriuret Pep Total Protein Albumin Arterial Blood Glucose Urine WBC (Auto) Urine Creatinine Digoxin 03/04/20 03/04/20 03/04/20 18:00 20:38 20:38 WBC RBC Hgb 10.1 L Hct 32.7 L MCHC 31 L RDW 24.7 H MCV 79 L MCH 24 L Lymph % (Auto) [place] % (Auto) 8.9 H [place] # Eos # Lymph # (Auto) [place] # (Auto) Eos # (Auto) Seg Neutrophils % Seg Neuts % (Manual) Baso # (Auto) Lymphocytes % (Manual) Monocytes % (Manual) Eosinophils % (Manual) Basophils % (Manual) Seg Neutrophils # Seg Neutrophils # Man Lymphocytes # (Manual) Monocytes # (Manual) Eosinophils # (Manual) Nucleated RBC % Basophils # (Manual) PT INR APTT Heparin Anti-Xa Level ABG pH POC ABG pO2 ABG pO2 ABG HCO3 ABG O2 Saturation ABG Base Excess POC ABG pCO2 ABG Hemoglobin ABG Oxyhemoglobin ABG Sodium ABG Chloride ABG Glucose Oxyhemoglobin Sodium 136 L Potassium Chloride Carbon Dioxide BUN 25 H Creatinine 0.5 L Glucose 148 H POC Glucose 146 H Lactic Acid Calcium Phosphorus Magnesium AST ALT Lactate Dehydrogenase Total Bilirubin Direct Bilirubin CK-MB (CK-2) C-Reactive Protein NT-Pro-B Natriuret Pep Total Protein Albumin Arterial Blood Glucose Urine WBC (Auto) Urine Creatinine Digoxin 03/04/20 03/05/20 03/05/20 23:17 05:44 11:32 WBC RBC Hgb Hct MCHC RDW MCV MCH Lymph % (Auto) [place] % (Auto) [place] # Eos # Lymph # (Auto) [place] # (Auto) Eos # (Auto) Seg Neutrophils % Seg Neuts % (Manual) Baso # (Auto) Lymphocytes % (Manual) Monocytes % (Manual) Eosinophils % (Manual) Basophils % (Manual) Seg Neutrophils # Seg Neutrophils # Man Lymphocytes # (Manual) Monocytes # (Manual) Eosinophils # (Manual) Nucleated RBC % Basophils # (Manual) PT INR APTT Heparin Anti-Xa Level ABG pH POC ABG pO2 ABG pO2 ABG HCO3 ABG O2 Saturation ABG Base Excess POC ABG pCO2 ABG Hemoglobin ABG Oxyhemoglobin ABG Sodium ABG Chloride ABG Glucose Oxyhemoglobin Sodium Potassium Chloride Carbon Dioxide BUN Creatinine Glucose POC Glucose 139 H 155 H 124 H Lactic Acid Calcium Phosphorus Magnesium AST ALT Lactate Dehydrogenase Total Bilirubin Direct Bilirubin CK-MB (CK-2) C-Reactive Protein NT-Pro-B Natriuret Pep Total Protein Albumin Arterial Blood Glucose Urine WBC (Auto) Urine Creatinine Digoxin 03/05/20 03/05/20 03/06/20 17:45 23:18 12:16 WBC RBC Hgb Hct MCHC RDW MCV MCH Lymph % (Auto) [place] % (Auto) [place] # Eos # Lymph # (Auto) [place] # (Auto) Eos # (Auto) Seg Neutrophils % Seg Neuts % (Manual) Baso # (Auto) Lymphocytes % (Manual) Monocytes % (Manual) Eosinophils % (Manual) Basophils % (Manual) Seg Neutrophils # Seg Neutrophils # Man Lymphocytes # (Manual) Monocytes # (Manual) Eosinophils # (Manual) Nucleated RBC % Basophils # (Manual) PT INR APTT Heparin Anti-Xa Level ABG pH POC ABG pO2 ABG pO2 ABG HCO3 ABG O2 Saturation ABG Base Excess POC ABG pCO2 ABG Hemoglobin ABG Oxyhemoglobin ABG Sodium ABG Chloride ABG Glucose Oxyhemoglobin Sodium Potassium Chloride Carbon Dioxide BUN Creatinine Glucose POC Glucose 171 H 114 H 155 H Lactic Acid Calcium Phosphorus Magnesium AST ALT Lactate Dehydrogenase Total Bilirubin Direct Bilirubin CK-MB (CK-2) C-Reactive Protein NT-Pro-B Natriuret Pep Total Protein Albumin Arterial Blood Glucose Urine WBC (Auto) Urine Creatinine Digoxin 03/06/20 03/06/20 03/07/20 17:27 23:48 06:02 WBC RBC Hgb Hct MCHC RDW MCV MCH Lymph % (Auto) [place] % (Auto) [place] # Eos # Lymph # (Auto) [place] # (Auto) Eos # (Auto) Seg Neutrophils % Seg Neuts % (Manual) Baso # (Auto) Lymphocytes % (Manual) Monocytes % (Manual) Eosinophils % (Manual) Basophils % (Manual) Seg Neutrophils # Seg Neutrophils # Man Lymphocytes # (Manual) Monocytes # (Manual) Eosinophils # (Manual) Nucleated RBC % Basophils # (Manual) PT INR APTT Heparin Anti-Xa Level ABG pH POC ABG pO2 ABG pO2 ABG HCO3 ABG O2 Saturation ABG Base Excess POC ABG pCO2 ABG Hemoglobin ABG Oxyhemoglobin ABG Sodium ABG Chloride ABG Glucose Oxyhemoglobin Sodium Potassium Chloride Carbon Dioxide BUN Creatinine Glucose POC Glucose 116 H 142 H 161 H Lactic Acid Calcium Phosphorus Magnesium AST ALT Lactate Dehydrogenase Total Bilirubin Direct Bilirubin CK-MB (CK-2) C-Reactive Protein NT-Pro-B Natriuret Pep Total Protein Albumin Arterial Blood Glucose Urine WBC (Auto) Urine Creatinine Digoxin 03/07/20 03/08/20 03/08/20 11:36 05:18 11:51 WBC RBC Hgb Hct MCHC RDW MCV MCH Lymph % (Auto) [place] % (Auto) [place] # Eos # Lymph # (Auto) [place] # (Auto) Eos # (Auto) Seg Neutrophils % Seg Neuts % (Manual) Baso # (Auto) Lymphocytes % (Manual) Monocytes % (Manual) Eosinophils % (Manual) Basophils % (Manual) Seg Neutrophils # Seg Neutrophils # Man Lymphocytes # (Manual) Monocytes # (Manual) Eosinophils # (Manual) Nucleated RBC % Basophils # (Manual) PT INR APTT Heparin Anti-Xa Level ABG pH POC ABG pO2 ABG pO2 ABG HCO3 ABG O2 Saturation ABG Base Excess POC ABG pCO2 ABG Hemoglobin ABG Oxyhemoglobin ABG Sodium ABG Chloride ABG Glucose Oxyhemoglobin Sodium Potassium Chloride Carbon Dioxide BUN Creatinine Glucose POC Glucose 127 H 142 H 135 H Lactic Acid Calcium Phosphorus Magnesium AST ALT Lactate Dehydrogenase Total Bilirubin Direct Bilirubin CK-MB (CK-2) C-Reactive Protein NT-Pro-B Natriuret Pep Total Protein Albumin Arterial Blood Glucose Urine WBC (Auto) Urine Creatinine Digoxin 03/08/20 03/08/20 03/09/20 18:14 23:45 05:36 WBC RBC Hgb Hct MCHC RDW MCV MCH Lymph % (Auto) [place] % (Auto) [place] # Eos # Lymph # (Auto) [place] # (Auto) Eos # (Auto) Seg Neutrophils % Seg Neuts % (Manual) Baso # (Auto) Lymphocytes % (Manual) Monocytes % (Manual) Eosinophils % (Manual) Basophils % (Manual) Seg Neutrophils # Seg Neutrophils # Man Lymphocytes # (Manual) Monocytes # (Manual) Eosinophils # (Manual) Nucleated RBC % Basophils # (Manual) PT INR APTT Heparin Anti-Xa Level ABG pH POC ABG pO2 ABG pO2 ABG HCO3 ABG O2 Saturation ABG Base Excess POC ABG pCO2 ABG Hemoglobin ABG Oxyhemoglobin ABG Sodium ABG Chloride ABG Glucose Oxyhemoglobin Sodium Potassium Chloride Carbon Dioxide BUN Creatinine Glucose POC Glucose 125 H 143 H 158 H Lactic Acid Calcium Phosphorus Magnesium AST ALT Lactate Dehydrogenase Total Bilirubin Direct Bilirubin CK-MB (CK-2) C-Reactive Protein NT-Pro-B Natriuret Pep Total Protein Albumin Arterial Blood Glucose Urine WBC (Auto) Urine Creatinine Digoxin 03/09/20 03/09/20 03/09/20 06:32 06:32 11:34 WBC RBC Hgb 9.8 L Hct 31.6 L MCHC 31 L RDW 23.1 H MCV 80 L MCH 25 L Lymph % (Auto) 35.1 H [place] % (Auto) 11.4 H [place] # Eos # Lymph # (Auto) [place] # (Auto) Eos # (Auto) Seg Neutrophils % Seg Neuts % (Manual) Baso # (Auto) Lymphocytes % (Manual) Monocytes % (Manual) Eosinophils % (Manual) Basophils % (Manual) Seg Neutrophils # Seg Neutrophils # Man Lymphocytes # (Manual) Monocytes # (Manual) Eosinophils # (Manual) Nucleated RBC % Basophils # (Manual) PT INR APTT Heparin Anti-Xa Level ABG pH POC ABG pO2 ABG pO2 ABG HCO3 ABG O2 Saturation ABG Base Excess POC ABG pCO2 ABG Hemoglobin ABG Oxyhemoglobin ABG Sodium ABG Chloride ABG Glucose Oxyhemoglobin Sodium 136 L Potassium Chloride Carbon Dioxide BUN 25 H Creatinine 0.6 L Glucose 170 H POC Glucose 140 H Lactic Acid Calcium Phosphorus Magnesium AST ALT Lactate Dehydrogenase Total Bilirubin Direct Bilirubin CK-MB (CK-2) C-Reactive Protein NT-Pro-B Natriuret Pep Total Protein Albumin Arterial Blood Glucose Urine WBC (Auto) Urine Creatinine Digoxin 03/09/20 03/09/20 03/10/20 18:10 23:11 05:41 WBC RBC Hgb Hct MCHC RDW MCV MCH Lymph % (Auto) [place] % (Auto) [place] # Eos # Lymph # (Auto) [place] # (Auto) Eos # (Auto) Seg Neutrophils % Seg Neuts % (Manual) Baso # (Auto) Lymphocytes % (Manual) Monocytes % (Manual) Eosinophils % (Manual) Basophils % (Manual) Seg Neutrophils # Seg Neutrophils # Man Lymphocytes # (Manual) Monocytes # (Manual) Eosinophils # (Manual) Nucleated RBC % Basophils # (Manual) PT INR APTT Heparin Anti-Xa Level ABG pH POC ABG pO2 ABG pO2 ABG HCO3 ABG O2 Saturation ABG Base Excess POC ABG pCO2 ABG Hemoglobin ABG Oxyhemoglobin ABG Sodium ABG Chloride ABG Glucose Oxyhemoglobin Sodium Potassium Chloride Carbon Dioxide BUN Creatinine Glucose POC Glucose 153 H 111 H 138 H Lactic Acid Calcium Phosphorus Magnesium AST ALT Lactate Dehydrogenase Total Bilirubin Direct Bilirubin CK-MB (CK-2) C-Reactive Protein NT-Pro-B Natriuret Pep Total Protein Albumin Arterial Blood Glucose Urine WBC (Auto) Urine Creatinine Digoxin 03/10/20 03/10/20 03/10/20 11:15 17:58 23:36 WBC RBC Hgb Hct MCHC RDW MCV MCH Lymph % (Auto) [place] % (Auto) [place] # Eos # Lymph # (Auto) [place] # (Auto) Eos # (Auto) Seg Neutrophils % Seg Neuts % (Manual) Baso # (Auto) Lymphocytes % (Manual) Monocytes % (Manual) Eosinophils % (Manual) Basophils % (Manual) Seg Neutrophils # Seg Neutrophils # Man Lymphocytes # (Manual) Monocytes # (Manual) Eosinophils # (Manual) Nucleated RBC % Basophils # (Manual) PT INR APTT Heparin Anti-Xa Level ABG pH POC ABG pO2 ABG pO2 ABG HCO3 ABG O2 Saturation ABG Base Excess POC ABG pCO2 ABG Hemoglobin ABG Oxyhemoglobin ABG Sodium ABG Chloride ABG Glucose Oxyhemoglobin Sodium Potassium Chloride Carbon Dioxide BUN Creatinine Glucose POC Glucose 141 H 149 H 148 H Lactic Acid Calcium Phosphorus Magnesium AST ALT Lactate Dehydrogenase Total Bilirubin Direct Bilirubin CK-MB (CK-2) C-Reactive Protein NT-Pro-B Natriuret Pep Total Protein Albumin Arterial Blood Glucose Urine WBC (Auto) Urine Creatinine Digoxin 03/11/20 03/11/20 03/12/20 05:55 17:43 04:45 WBC RBC Hgb Hct MCHC RDW MCV MCH Lymph % (Auto) [place] % (Auto) [place] # Eos # Lymph # (Auto) [place] # (Auto) Eos # (Auto) Seg Neutrophils % Seg Neuts % (Manual) Baso # (Auto) Lymphocytes % (Manual) Monocytes % (Manual) Eosinophils % (Manual) Basophils % (Manual) Seg Neutrophils # Seg Neutrophils # Man Lymphocytes # (Manual) Monocytes # (Manual) Eosinophils # (Manual) Nucleated RBC % Basophils # (Manual) PT INR APTT Heparin Anti-Xa Level ABG pH 7.454 H POC ABG pO2 69.2 L ABG pO2 ABG HCO3 ABG O2 Saturation ABG Base Excess POC ABG pCO2 ABG Hemoglobin 11.2 L ABG Oxyhemoglobin ABG Sodium 134.7 L ABG Chloride ABG Glucose 151 H Oxyhemoglobin Sodium Potassium Chloride Carbon Dioxide BUN Creatinine Glucose POC Glucose 181 H 107 H Lactic Acid Calcium Phosphorus Magnesium AST ALT Lactate Dehydrogenase Total Bilirubin Direct Bilirubin CK-MB (CK-2) C-Reactive Protein NT-Pro-B Natriuret Pep Total Protein Albumin Arterial Blood Glucose 151 H Urine WBC (Auto) Urine Creatinine Digoxin 03/12/20 03/12/20 03/12/20 05:36 11:36 17:40 WBC RBC Hgb Hct MCHC RDW MCV MCH Lymph % (Auto) [place] % (Auto) [place] # Eos # Lymph # (Auto) [place] # (Auto) Eos # (Auto) Seg Neutrophils % Seg Neuts % (Manual) Baso # (Auto) Lymphocytes % (Manual) Monocytes % (Manual) Eosinophils % (Manual) Basophils % (Manual) Seg Neutrophils # Seg Neutrophils # Man Lymphocytes # (Manual) Monocytes # (Manual) Eosinophils # (Manual) Nucleated RBC % Basophils # (Manual) PT INR APTT Heparin Anti-Xa Level ABG pH POC ABG pO2 ABG pO2 ABG HCO3 ABG O2 Saturation ABG Base Excess POC ABG pCO2 ABG Hemoglobin ABG Oxyhemoglobin ABG Sodium ABG Chloride ABG Glucose Oxyhemoglobin Sodium Potassium Chloride Carbon Dioxide BUN Creatinine Glucose POC Glucose 137 H 122 H 116 H Lactic Acid Calcium Phosphorus Magnesium AST ALT Lactate Dehydrogenase Total Bilirubin Direct Bilirubin CK-MB (CK-2) C-Reactive Protein NT-Pro-B Natriuret Pep Total Protein Albumin Arterial Blood Glucose Urine WBC (Auto) Urine Creatinine Digoxin 03/12/20 03/13/20 03/13/20 23:17 05:47 11:35 WBC RBC Hgb Hct MCHC RDW MCV MCH Lymph % (Auto) [place] % (Auto) [place] # Eos # Lymph # (Auto) [place] # (Auto) Eos # (Auto) Seg Neutrophils % Seg Neuts % (Manual) Baso # (Auto) Lymphocytes % (Manual) Monocytes % (Manual) Eosinophils % (Manual) Basophils % (Manual) Seg Neutrophils # Seg Neutrophils # Man Lymphocytes # (Manual) Monocytes # (Manual) Eosinophils # (Manual) Nucleated RBC % Basophils # (Manual) PT INR APTT Heparin Anti-Xa Level ABG pH POC ABG pO2 ABG pO2 ABG HCO3 ABG O2 Saturation ABG Base Excess POC ABG pCO2 ABG Hemoglobin ABG Oxyhemoglobin ABG Sodium ABG Chloride ABG Glucose Oxyhemoglobin Sodium Potassium Chloride Carbon Dioxide BUN Creatinine Glucose POC Glucose 118 H 142 H 146 H Lactic Acid Calcium Phosphorus Magnesium AST ALT Lactate Dehydrogenase Total Bilirubin Direct Bilirubin CK-MB (CK-2) C-Reactive Protein NT-Pro-B Natriuret Pep Total Protein Albumin Arterial Blood Glucose Urine WBC (Auto) Urine Creatinine Digoxin 03/13/20 03/13/20 03/14/20 17:25 23:27 05:04 WBC RBC Hgb Hct MCHC RDW MCV MCH Lymph % (Auto) [place] % (Auto) [place] # Eos # Lymph # (Auto) [place] # (Auto) Eos # (Auto) Seg Neutrophils % Seg Neuts % (Manual) Baso # (Auto) Lymphocytes % (Manual) Monocytes % (Manual) Eosinophils % (Manual) Basophils % (Manual) Seg Neutrophils # Seg Neutrophils # Man Lymphocytes # (Manual) Monocytes # (Manual) Eosinophils # (Manual) Nucleated RBC % Basophils # (Manual) PT INR APTT Heparin Anti-Xa Level ABG pH POC ABG pO2 ABG pO2 ABG HCO3 ABG O2 Saturation ABG Base Excess POC ABG pCO2 ABG Hemoglobin ABG Oxyhemoglobin ABG Sodium ABG Chloride ABG Glucose Oxyhemoglobin Sodium Potassium Chloride Carbon Dioxide BUN Creatinine Glucose POC Glucose 138 H 160 H 159 H Lactic Acid Calcium Phosphorus Magnesium AST ALT Lactate Dehydrogenase Total Bilirubin Direct Bilirubin CK-MB (CK-2) C-Reactive Protein NT-Pro-B Natriuret Pep Total Protein Albumin Arterial Blood Glucose Urine WBC (Auto) Urine Creatinine Digoxin 03/14/20 03/14/20 03/15/20 11:19 16:18 00:18 WBC RBC Hgb Hct MCHC RDW MCV MCH Lymph % (Auto) [place] % (Auto) [place] # Eos # Lymph # (Auto) [place] # (Auto) Eos # (Auto) Seg Neutrophils % Seg Neuts % (Manual) Baso # (Auto) Lymphocytes % (Manual) Monocytes % (Manual) Eosinophils % (Manual) Basophils % (Manual) Seg Neutrophils # Seg Neutrophils # Man Lymphocytes # (Manual) Monocytes # (Manual) Eosinophils # (Manual) Nucleated RBC % Basophils # (Manual) PT INR APTT Heparin Anti-Xa Level ABG pH POC ABG pO2 ABG pO2 ABG HCO3 ABG O2 Saturation ABG Base Excess POC ABG pCO2 ABG Hemoglobin ABG Oxyhemoglobin ABG Sodium ABG Chloride ABG Glucose Oxyhemoglobin Sodium Potassium Chloride Carbon Dioxide BUN Creatinine Glucose POC Glucose 130 H 170 H 125 H Lactic Acid Calcium Phosphorus Magnesium AST ALT Lactate Dehydrogenase Total Bilirubin Direct Bilirubin CK-MB (CK-2) C-Reactive Protein NT-Pro-B Natriuret Pep Total Protein Albumin Arterial Blood Glucose Urine WBC (Auto) Urine Creatinine Digoxin 03/15/20 03/15/20 03/15/20 04:05 04:05 05:36 WBC RBC Hgb 10.0 L Hct 31.6 L MCHC RDW 22.4 H MCV 77 L MCH 24 L Lymph % (Auto) 36.2 H [place] % (Auto) 9.4 H [place] # Eos # Lymph # (Auto) [place] # (Auto) Eos # (Auto) Seg Neutrophils % Seg Neuts % (Manual) Baso # (Auto) Lymphocytes % (Manual) Monocytes % (Manual) Eosinophils % (Manual) Basophils % (Manual) Seg Neutrophils # Seg Neutrophils # Man Lymphocytes # (Manual) Monocytes # (Manual) Eosinophils # (Manual) Nucleated RBC % Basophils # (Manual) PT INR APTT Heparin Anti-Xa Level ABG pH POC ABG pO2 ABG pO2 ABG HCO3 ABG O2 Saturation ABG Base Excess POC ABG pCO2 ABG Hemoglobin ABG Oxyhemoglobin ABG Sodium ABG Chloride ABG Glucose Oxyhemoglobin Sodium Potassium Chloride Carbon Dioxide 32 H BUN Creatinine 0.5 L Glucose 141 H POC Glucose 130 H Lactic Acid Calcium Phosphorus Magnesium AST ALT Lactate Dehydrogenase Total Bilirubin Direct Bilirubin CK-MB (CK-2) C-Reactive Protein NT-Pro-B Natriuret Pep Total Protein Albumin Arterial Blood Glucose Urine WBC (Auto) Urine Creatinine Digoxin 03/15/20 03/15/20 03/15/20 11:41 17:38 23:16 WBC RBC Hgb Hct MCHC RDW MCV MCH Lymph % (Auto) [place] % (Auto) [place] # Eos # Lymph # (Auto) [place] # (Auto) Eos # (Auto) Seg Neutrophils % Seg Neuts % (Manual) Baso # (Auto) Lymphocytes % (Manual) Monocytes % (Manual) Eosinophils % (Manual) Basophils % (Manual) Seg Neutrophils # Seg Neutrophils # Man Lymphocytes # (Manual) Monocytes # (Manual) Eosinophils # (Manual) Nucleated RBC % Basophils # (Manual) PT INR APTT Heparin Anti-Xa Level ABG pH POC ABG pO2 ABG pO2 ABG HCO3 ABG O2 Saturation ABG Base Excess POC ABG pCO2 ABG Hemoglobin ABG Oxyhemoglobin ABG Sodium ABG Chloride ABG Glucose Oxyhemoglobin Sodium Potassium Chloride Carbon Dioxide BUN Creatinine Glucose POC Glucose 114 H 144 H 116 H Lactic Acid Calcium Phosphorus Magnesium AST ALT Lactate Dehydrogenase Total Bilirubin Direct Bilirubin CK-MB (CK-2) C-Reactive Protein NT-Pro-B Natriuret Pep Total Protein Albumin Arterial Blood Glucose Urine WBC (Auto) Urine Creatinine Digoxin 03/16/20 03/16/20 03/16/20 05:39 13:16 18:29 WBC RBC Hgb Hct MCHC RDW MCV MCH Lymph % (Auto) [place] % (Auto) [place] # Eos # Lymph # (Auto) [place] # (Auto) Eos # (Auto) Seg Neutrophils % Seg Neuts % (Manual) Baso # (Auto) Lymphocytes % (Manual) Monocytes % (Manual) Eosinophils % (Manual) Basophils % (Manual) Seg Neutrophils # Seg Neutrophils # Man Lymphocytes # (Manual) Monocytes # (Manual) Eosinophils # (Manual) Nucleated RBC % Basophils # (Manual) PT INR APTT Heparin Anti-Xa Level ABG pH POC ABG pO2 ABG pO2 ABG HCO3 ABG O2 Saturation ABG Base Excess POC ABG pCO2 ABG Hemoglobin ABG Oxyhemoglobin ABG Sodium ABG Chloride ABG Glucose Oxyhemoglobin Sodium Potassium Chloride Carbon Dioxide BUN Creatinine Glucose POC Glucose 125 H 153 H 135 H Lactic Acid Calcium Phosphorus Magnesium AST ALT Lactate Dehydrogenase Total Bilirubin Direct Bilirubin CK-MB (CK-2) C-Reactive Protein NT-Pro-B Natriuret Pep Total Protein Albumin Arterial Blood Glucose Urine WBC (Auto) Urine Creatinine Digoxin 03/16/20 03/17/20 03/17/20 23:32 05:50 11:38 WBC RBC Hgb Hct MCHC RDW MCV MCH Lymph % (Auto) [place] % (Auto) [place] # Eos # Lymph # (Auto) [place] # (Auto) Eos # (Auto) Seg Neutrophils % Seg Neuts % (Manual) Baso # (Auto) Lymphocytes % (Manual) Monocytes % (Manual) Eosinophils % (Manual) Basophils % (Manual) Seg Neutrophils # Seg Neutrophils # Man Lymphocytes # (Manual) Monocytes # (Manual) Eosinophils # (Manual) Nucleated RBC % Basophils # (Manual) PT INR APTT Heparin Anti-Xa Level ABG pH POC ABG pO2 ABG pO2 ABG HCO3 ABG O2 Saturation ABG Base Excess POC ABG pCO2 ABG Hemoglobin ABG Oxyhemoglobin ABG Sodium ABG Chloride ABG Glucose Oxyhemoglobin Sodium Potassium Chloride Carbon Dioxide BUN Creatinine Glucose POC Glucose 137 H 160 H 134 H Lactic Acid Calcium Phosphorus Magnesium AST ALT Lactate Dehydrogenase Total Bilirubin Direct Bilirubin CK-MB (CK-2) C-Reactive Protein NT-Pro-B Natriuret Pep Total Protein Albumin Arterial Blood Glucose Urine WBC (Auto) Urine Creatinine Digoxin 03/17/20 03/17/20 03/18/20 16:59 23:29 05:39 WBC RBC Hgb Hct MCHC RDW MCV MCH Lymph % (Auto) [place] % (Auto) [place] # Eos # Lymph # (Auto) [place] # (Auto) Eos # (Auto) Seg Neutrophils % Seg Neuts % (Manual) Baso # (Auto) Lymphocytes % (Manual) Monocytes % (Manual) Eosinophils % (Manual) Basophils % (Manual) Seg Neutrophils # Seg Neutrophils # Man Lymphocytes # (Manual) Monocytes # (Manual) Eosinophils # (Manual) Nucleated RBC % Basophils # (Manual) PT INR APTT Heparin Anti-Xa Level ABG pH POC ABG pO2 ABG pO2 ABG HCO3 ABG O2 Saturation ABG Base Excess POC ABG pCO2 ABG Hemoglobin ABG Oxyhemoglobin ABG Sodium ABG Chloride ABG Glucose Oxyhemoglobin Sodium Potassium Chloride Carbon Dioxide BUN Creatinine Glucose POC Glucose 120 H 141 H 181 H Lactic Acid Calcium Phosphorus Magnesium AST ALT Lactate Dehydrogenase Total Bilirubin Direct Bilirubin CK-MB (CK-2) C-Reactive Protein NT-Pro-B Natriuret Pep Total Protein Albumin Arterial Blood Glucose Urine WBC (Auto) Urine Creatinine Digoxin 03/18/20 03/18/20 03/18/20 11:18 15:34 17:42 WBC RBC Hgb Hct MCHC RDW MCV MCH Lymph % (Auto) [place] % (Auto) [place] # Eos # Lymph # (Auto) [place] # (Auto) Eos # (Auto) Seg Neutrophils % Seg Neuts % (Manual) Baso # (Auto) Lymphocytes % (Manual) Monocytes % (Manual) Eosinophils % (Manual) Basophils % (Manual) Seg Neutrophils # Seg Neutrophils # Man Lymphocytes # (Manual) Monocytes # (Manual) Eosinophils # (Manual) Nucleated RBC % Basophils # (Manual) PT INR APTT Heparin Anti-Xa Level ABG pH POC ABG pO2 ABG pO2 ABG HCO3 ABG O2 Saturation ABG Base Excess POC ABG pCO2 ABG Hemoglobin ABG Oxyhemoglobin ABG Sodium ABG Chloride ABG Glucose Oxyhemoglobin Sodium 132 L Potassium 5.4 H D Chloride 96.8 L Carbon Dioxide BUN 24 H Creatinine 0.6 L Glucose 164 H POC Glucose 142 H 118 H Lactic Acid Calcium Phosphorus Magnesium AST ALT Lactate Dehydrogenase Total Bilirubin Direct Bilirubin CK-MB (CK-2) C-Reactive Protein NT-Pro-B Natriuret Pep Total Protein 6.2 L Albumin 2.8 L Arterial Blood Glucose Urine WBC (Auto) Urine Creatinine Digoxin 03/18/20 03/19/20 03/19/20 23:57 05:40 07:50 WBC RBC Hgb Hct MCHC RDW MCV MCH Lymph % (Auto) [place] % (Auto) [place] # Eos # Lymph # (Auto) [place] # (Auto) Eos # (Auto) Seg Neutrophils % Seg Neuts % (Manual) Baso # (Auto) Lymphocytes % (Manual) Monocytes % (Manual) Eosinophils % (Manual) Basophils % (Manual) Seg Neutrophils # Seg Neutrophils # Man Lymphocytes # (Manual) Monocytes # (Manual) Eosinophils # (Manual) Nucleated RBC % Basophils # (Manual) PT INR APTT Heparin Anti-Xa Level ABG pH POC ABG pO2 ABG pO2 ABG HCO3 ABG O2 Saturation ABG Base Excess POC ABG pCO2 ABG Hemoglobin ABG Oxyhemoglobin ABG Sodium ABG Chloride ABG Glucose Oxyhemoglobin Sodium 136 L Potassium Chloride 97.3 L Carbon Dioxide 31 H BUN 22 H Creatinine 0.5 L Glucose 160 H POC Glucose 127 H 136 H Lactic Acid Calcium Phosphorus Magnesium AST ALT Lactate Dehydrogenase Total Bilirubin Direct Bilirubin CK-MB (CK-2) C-Reactive Protein NT-Pro-B Natriuret Pep Total Protein Albumin Arterial Blood Glucose Urine WBC (Auto) Urine Creatinine Digoxin 03/19/20 03/19/20 03/20/20 12:21 17:27 00:31 WBC RBC Hgb Hct MCHC RDW MCV MCH Lymph % (Auto) [place] % (Auto) [place] # Eos # Lymph # (Auto) [place] # (Auto) Eos # (Auto) Seg Neutrophils % Seg Neuts % (Manual) Baso # (Auto) Lymphocytes % (Manual) Monocytes % (Manual) Eosinophils % (Manual) Basophils % (Manual) Seg Neutrophils # Seg Neutrophils # Man Lymphocytes # (Manual) Monocytes # (Manual) Eosinophils # (Manual) Nucleated RBC % Basophils # (Manual) PT INR APTT Heparin Anti-Xa Level ABG pH POC ABG pO2 ABG pO2 ABG HCO3 ABG O2 Saturation ABG Base Excess POC ABG pCO2 ABG Hemoglobin ABG Oxyhemoglobin ABG Sodium ABG Chloride ABG Glucose Oxyhemoglobin Sodium Potassium Chloride Carbon Dioxide BUN Creatinine Glucose POC Glucose 147 H 152 H 132 H Lactic Acid Calcium Phosphorus Magnesium AST ALT Lactate Dehydrogenase Total Bilirubin Direct Bilirubin CK-MB (CK-2) C-Reactive Protein NT-Pro-B Natriuret Pep Total Protein Albumin Arterial Blood Glucose Urine WBC (Auto) Urine Creatinine Digoxin 03/20/20 03/20/20 03/20/20 05:59 11:45 17:24 WBC RBC Hgb Hct MCHC RDW MCV MCH Lymph % (Auto) [place] % (Auto) [place] # Eos # Lymph # (Auto) [place] # (Auto) Eos # (Auto) Seg Neutrophils % Seg Neuts % (Manual) Baso # (Auto) Lymphocytes % (Manual) Monocytes % (Manual) Eosinophils % (Manual) Basophils % (Manual) Seg Neutrophils # Seg Neutrophils # Man Lymphocytes # (Manual) Monocytes # (Manual) Eosinophils # (Manual) Nucleated RBC % Basophils # (Manual) PT INR APTT Heparin Anti-Xa Level ABG pH POC ABG pO2 ABG pO2 ABG HCO3 ABG O2 Saturation ABG Base Excess POC ABG pCO2 ABG Hemoglobin ABG Oxyhemoglobin ABG Sodium ABG Chloride ABG Glucose Oxyhemoglobin Sodium Potassium Chloride Carbon Dioxide BUN Creatinine Glucose POC Glucose 146 H 142 H 107 H Lactic Acid Calcium Phosphorus Magnesium AST ALT Lactate Dehydrogenase Total Bilirubin Direct Bilirubin CK-MB (CK-2) C-Reactive Protein NT-Pro-B Natriuret Pep Total Protein Albumin Arterial Blood Glucose Urine WBC (Auto) Urine Creatinine Digoxin 03/20/20 03/21/20 03/21/20 23:38 05:38 11:22 WBC RBC Hgb Hct MCHC RDW MCV MCH Lymph % (Auto) [place] % (Auto) [place] # Eos # Lymph # (Auto) [place] # (Auto) Eos # (Auto) Seg Neutrophils % Seg Neuts % (Manual) Baso # (Auto) Lymphocytes % (Manual) Monocytes % (Manual) Eosinophils % (Manual) Basophils % (Manual) Seg Neutrophils # Seg Neutrophils # Man Lymphocytes # (Manual) Monocytes # (Manual) Eosinophils # (Manual) Nucleated RBC % Basophils # (Manual) PT INR APTT Heparin Anti-Xa Level ABG pH POC ABG pO2 ABG pO2 ABG HCO3 ABG O2 Saturation ABG Base Excess POC ABG pCO2 ABG Hemoglobin ABG Oxyhemoglobin ABG Sodium ABG Chloride ABG Glucose Oxyhemoglobin Sodium Potassium Chloride Carbon Dioxide BUN Creatinine Glucose POC Glucose 115 H 133 H 137 H Lactic Acid Calcium Phosphorus Magnesium AST ALT Lactate Dehydrogenase Total Bilirubin Direct Bilirubin CK-MB (CK-2) C-Reactive Protein NT-Pro-B Natriuret Pep Total Protein Albumin Arterial Blood Glucose Urine WBC (Auto) Urine Creatinine Digoxin 03/21/20 03/22/20 03/22/20 18:26 00:10 05:29 WBC RBC Hgb Hct MCHC RDW MCV MCH Lymph % (Auto) [place] % (Auto) [place] # Eos # Lymph # (Auto) [place] # (Auto) Eos # (Auto) Seg Neutrophils % Seg Neuts % (Manual) Baso # (Auto) Lymphocytes % (Manual) Monocytes % (Manual) Eosinophils % (Manual) Basophils % (Manual) Seg Neutrophils # Seg Neutrophils # Man Lymphocytes # (Manual) Monocytes # (Manual) Eosinophils # (Manual) Nucleated RBC % Basophils # (Manual) PT INR APTT Heparin Anti-Xa Level ABG pH POC ABG pO2 ABG pO2 ABG HCO3 ABG O2 Saturation ABG Base Excess POC ABG pCO2 ABG Hemoglobin ABG Oxyhemoglobin ABG Sodium ABG Chloride ABG Glucose Oxyhemoglobin Sodium Potassium Chloride Carbon Dioxide BUN Creatinine Glucose POC Glucose 200 H 123 H 156 H Lactic Acid Calcium Phosphorus Magnesium AST ALT Lactate Dehydrogenase Total Bilirubin Direct Bilirubin CK-MB (CK-2) C-Reactive Protein NT-Pro-B Natriuret Pep Total Protein Albumin Arterial Blood Glucose Urine WBC (Auto) Urine Creatinine Digoxin 03/22/20 03/22/20 03/22/20 06:39 06:39 06:39 WBC RBC Hgb 9.7 L Hct 30.7 L MCHC RDW 22.2 H MCV 77 L MCH 25 L Lymph % (Auto) [place] % (Auto) 9.0 H [place] # Eos # Lymph # (Auto) [place] # (Auto) Eos # (Auto) Seg Neutrophils % Seg Neuts % (Manual) Baso # (Auto) Lymphocytes % (Manual) Monocytes % (Manual) Eosinophils % (Manual) Basophils % (Manual) Seg Neutrophils # Seg Neutrophils # Man Lymphocytes # (Manual) Monocytes # (Manual) Eosinophils # (Manual) Nucleated RBC % Basophils # (Manual) PT INR APTT Heparin Anti-Xa Level ABG pH POC ABG pO2 ABG pO2 ABG HCO3 ABG O2 Saturation ABG Base Excess POC ABG pCO2 ABG Hemoglobin ABG Oxyhemoglobin ABG Sodium ABG Chloride ABG Glucose Oxyhemoglobin Sodium Potassium Chloride Carbon Dioxide 33 H BUN Creatinine 0.5 L Glucose 147 H POC Glucose Lactic Acid Calcium Phosphorus Magnesium AST ALT Lactate Dehydrogenase Total Bilirubin Direct Bilirubin CK-MB (CK-2) C-Reactive Protein NT-Pro-B Natriuret Pep Total Protein Albumin Arterial Blood Glucose Urine WBC (Auto) Urine Creatinine Digoxin 0.8 L 03/22/20 03/22/20 03/22/20 11:22 17:49 23:38 WBC RBC Hgb Hct MCHC RDW MCV MCH Lymph % (Auto) [place] % (Auto) [place] # Eos # Lymph # (Auto) [place] # (Auto) Eos # (Auto) Seg Neutrophils % Seg Neuts % (Manual) Baso # (Auto) Lymphocytes % (Manual) Monocytes % (Manual) Eosinophils % (Manual) Basophils % (Manual) Seg Neutrophils # Seg Neutrophils # Man Lymphocytes # (Manual) Monocytes # (Manual) Eosinophils # (Manual) Nucleated RBC % Basophils # (Manual) PT INR APTT Heparin Anti-Xa Level ABG pH POC ABG pO2 ABG pO2 ABG HCO3 ABG O2 Saturation ABG Base Excess POC ABG pCO2 ABG Hemoglobin ABG Oxyhemoglobin ABG Sodium ABG Chloride ABG Glucose Oxyhemoglobin Sodium Potassium Chloride Carbon Dioxide BUN Creatinine Glucose POC Glucose 159 H 119 H 129 H Lactic Acid Calcium Phosphorus Magnesium AST ALT Lactate Dehydrogenase Total Bilirubin Direct Bilirubin CK-MB (CK-2) C-Reactive Protein NT-Pro-B Natriuret Pep Total Protein Albumin Arterial Blood Glucose Urine WBC (Auto) Urine Creatinine Digoxin 03/23/20 03/23/20 03/23/20 05:02 11:38 17:01 WBC RBC Hgb Hct MCHC RDW MCV MCH Lymph % (Auto) [place] % (Auto) [place] # Eos # Lymph # (Auto) [place] # (Auto) Eos # (Auto) Seg Neutrophils % Seg Neuts % (Manual) Baso # (Auto) Lymphocytes % (Manual) Monocytes % (Manual) Eosinophils % (Manual) Basophils % (Manual) Seg Neutrophils # Seg Neutrophils # Man Lymphocytes # (Manual) Monocytes # (Manual) Eosinophils # (Manual) Nucleated RBC % Basophils # (Manual) PT INR APTT Heparin Anti-Xa Level ABG pH POC ABG pO2 ABG pO2 ABG HCO3 ABG O2 Saturation ABG Base Excess POC ABG pCO2 ABG Hemoglobin ABG Oxyhemoglobin ABG Sodium ABG Chloride ABG Glucose Oxyhemoglobin Sodium Potassium Chloride Carbon Dioxide BUN Creatinine Glucose POC Glucose 136 H 129 H 122 H Lactic Acid Calcium Phosphorus Magnesium AST ALT Lactate Dehydrogenase Total Bilirubin Direct Bilirubin CK-MB (CK-2) C-Reactive Protein NT-Pro-B Natriuret Pep Total Protein Albumin Arterial Blood Glucose Urine WBC (Auto) Urine Creatinine Digoxin Allied health notes reviewed: nursing
[2020-03-23] MEDS: DIGOXIN 0.125 MG TAB PO SCH (19:08)
[2020-03-23] MEDS: TAMSULOSIN 0.4 MG CAP PO SCH (22:13)
[2020-03-23] MEDS: POLYETHYLENE GLYCOL 3350 17 GM POWDER PO SCH (22:14)
[2020-03-24] MEDS: INSULIN REGULAR, HUMAN 100 UNIT/ML 3ML VIAL SUB-Q SCH ×4 (06:15→18:44)
[2020-03-24] MEDS: CLOPIDOGREL 75 MG TAB PO SCH (09:29)
[2020-03-24] MEDS: DOCUSATE SODIUM 100 MG/10 ML ORAL LIQD FEEDTUBE SCH ×2 (09:29→21:46)
[2020-03-24] MEDS: LANSOPRAZOLE 30 MG SOLUTAB FEEDTUBE SCH (09:29)
[2020-03-24] MEDS: APIXABAN 5 MG TAB PO SCH ×2 (09:29→21:46)
[2020-03-24] MEDS: GLYCOPYRROLATE 2 MG TAB PO SCH ×3 (09:29→21:45)
[2020-03-24] MEDS: MIDODRINE 5 MG TAB PO SCH ×3 (09:29→17:01)
[2020-03-24] MEDS: METOPROLOL TARTRATE 25 MG TAB FEEDTUBE SCH ×2 (09:29→21:49)
[2020-03-24] MEDS: QUEtiapine 100 MG TAB PO SCH ×2 (09:29→21:49)
--- NOTE | 2020-03-24 09:32 | Progress Note ---
Assessment and Plan Assessment and plan: --Acute on chronic hypoxemic respiratory failure; Patient has tracheostomy on vent On CPAP trial Continue nebulizers, , trach care Wean off ventilator as tolerated Pulmonary critical following --Acute exacerbation of COPD; Patient is currently on ventilatory support Continue nebulizers --Left lower lobe PE; Continue Eliquis, ventilatory support --Acute right lower extremity DVT; Patient is on Eliquis --Bilateral multifocal pneumonia/community-acquired Completed antibiotics, improved --Severe sepsis/bilateral pneumonia: Completed antibiotics COVID-19 test; 11/24/2019; negative 11/26/2019; negative 12/29/2019: Negative --Paroxysmal atrial fibrillation; Now rate controlled, Stable on amiodarone and Eliquis --Acute on chronic combined systolic and diastolic congestive heart failure Ischemic cardiomyopathy left ventricular ejection fraction 40 to 45% --H/o CAD [[facility] 12/2018 in-stent restenosis] Patient is stable on current cardiac medications --Hypertensive emergency; present on admission Reasonable blood pressures, continue current antihypertensives As needed medications --History of alcohol abuse/alcohol withdrawal; Was on CIWA protocol, now stable --Oropharyngeal dysphagia; status post PEG placement Continue PEG feeds per protocol --History of partial small bowel obstruction; resolved Surgery evaluated. --Obesity; BMI 34.7 Patient needs weight reduction when medically stable --Severe protein calorie malnutrition/hypoalbuminemia Nutrition supplements, dietitian following, PEG feeds --DVT prophylaxis;Eliquis --Full CODE STATUS 03/19/2020. Continue current vent per pulmonary recommendations. Pressure support ventilation trials as tolerated. Continue trach care, secretion control and airway management. Mobility protocols for pressure ulcer prophylaxis. 03/20/2020. Rate better controlled on digoxin and metoprolol per cardiology. Patient currently off amiodarone due to elevated liver enzymes. Continue anticoagulation with Eliquis. IV metoprolol as needed. No statins for now secondary to elevated liver enzymes. Patient remains on AC mode ventilation rate 12, tidal volume 450, FiO2 30% and PEEP of 6. Cont. PSV as figueroa. Continue trach care, secretion control and airway management. Mobility protocols for pressure ulcer prophylaxis. Patient is uninsured and his only d/c option is to return home with family. 03/21/2020. Patient still with elevated heart rate but better on digoxin and metoprolol per cardiology. Patient currently off amiodarone due to elevated liver enzymes. Continue anticoagulation with Eliquis. IV metoprolol as needed. No statins for now secondary to elevated liver enzymes. Patient remains on AC mode mechanical ventilation with rate 12, tidal volume 450, FiO2 30% and PEEP of 6. Continue PSV trials as tolerated. Continue trach care, secretion control and airway management. Mobility protocols for pressure ulcer prophylaxis. Patient is uninsured and his only d/c option is to return home with family. 03/22/2020; patient remains on ventilatory support, continue to wean as tolerated, trach care Awaiting LTAC placement, however patient has multiple social issues, mobility protocols blood pressure ulcers DVT prophylaxis, will continue current management 03/23/2020; patient remains on ventilatory support, tracheostomy, on CPAP trial The high probability of a clinically significant, sudden or life threatening det erioration of the [Respiratory, cardiovascular & neurological] system(s) required my full and direct attention, intervention and personal management. The aggregate critical care time was [34] minutes without overlap. Time includes spent on [x] Data Review and interpretation [x] Patient assessment and monitoring of vital signs [x] Documentation [x] Medication orders and management History Interval history: I have seen and examined the patient at the bedside in ICU Patient is alert and awake cheerful Tracheostomy on ventilatory support Vital signs noted Not in acute distress Hospitalist Physical - Constitutional Vitals: Temp Pulse Resp BP Pulse Ox 97.8 F 104 H 21 106/66 99 03/24/20 04:00 03/24/20 09:29 03/24/20 08:15 03/24/20 09:29 03/24/20 08:15 General appearance: Present: no acute distress, well-nourished, other (Tracheostomy on vent) - EENT Eyes: Present: PERRL, EOM intact - Neck Neck: Present: supple, normal ROM - Respiratory Respiratory effort: normal Respiratory: bilateral: diminished, rhonchi, negative: rales, wheezing - Cardiovascular Rhythm: regular Heart Sounds: Present: S1 & S2 - Extremities Extremities: no ischemia, No edema - Abdominal General gastrointestinal: soft, non-tender, non-distended, normal bowel sounds - Integumentary Integumentary: Present: clear, warm - Psychiatric Psychiatric: appropriate mood/affect, cooperative - Neurologic Neurologic: CNII-XII intact, moves all extremities HEART Score - HEART Score Troponin: Troponin T < 0.010 ng/mL (0.00-0.029) 01/19/20 01:35 Results - Labs CBC & Chem 7: 03/22/20 06:39 03/22/20 06:39 Labs: Laboratory Last Values WBC 6.0 K/mm3 (4.5-11.0) 03/22/20 06:39 RBC 3.97 M/mm3 (3.65-5.03) 03/22/20 06:39 Hgb 9.7 gm/dl (11.8-15.2) L 03/22/20 06:39 Hct 30.7 % (35.5-45.6) L 03/22/20 06:39 MCV 77 fl (84-94) L 03/22/20 06:39 MCH 25 pg (28-32) L 03/22/20 06:39 MCHC 32 % (32-34) 03/22/20 06:39 RDW 22.2 % (13.2-15.2) H 03/22/20 06:39 Plt Count 166 K/mm3 (140-440) 03/22/20 06:39 Lymph % (Auto) 32.8 % (13.4-35.0) 03/22/20 06:39 [place] % (Auto) 9.0 % (0.0-7.3) H 03/22/20 06:39 Eos % (Auto) 2.4 % (0.0-4.3) 03/22/20 06:39 Baso % (Auto) 0.3 % (0.0-1.8) 03/22/20 06:39 Lymph # (Auto) 2.0 K/mm3 (1.2-5.4) 03/22/20 06:39 [place] # (Auto) 0.5 K/mm3 (0.0-0.8) 03/22/20 06:39 Eos # (Auto) 0.1 K/mm3 (0.0-0.4) 03/22/20 06:39 Baso # (Auto) 0.0 K/mm3 (0.0-0.1) 03/22/20 06:39 Add Manual Diff Complete 02/15/20 06:59 Total Counted 100 02/15/20 06:59 Seg Neuts % (Manual) 58.0 % (40.0-70.0) 02/15/20 06:59 Band Neutrophils % 0 % 02/15/20 06:59 Seg Neutrophils % 55.5 % (40.0-70.0) 03/22/20 06:39 Lymphocytes % (Manual) 34.0 % (13.4-35.0) 02/15/20 06:59 Reactive Lymphs % (Man) 1.0 % 02/15/20 06:59 Monocytes % (Manual) 4.0 % (0.0-7.3) 02/15/20 06:59 Eosinophils % (Manual) 0 % (0.0-4.3) 02/15/20 06:59 Basophils % (Manual) 2.0 % (0.0-1.8) H 02/15/20 06:59 Metamyelocytes % 1.0 % 02/15/20 06:59 Myelocytes % 0 % 02/15/20 06:59 Promyelocytes % 0 % 02/15/20 06:59 Blast Cells % 0 % 02/15/20 06:59 Nucleated RBC % 1.0 % (0.0-0.9) H 02/15/20 06:59 Seg Neutrophils # Man 5.9 K/mm3 (1.8-7.7) 02/15/20 06:59 Seg Neutrophils # 3.4 K/mm3 (1.8-7.7) 03/22/20 06:39 Band Neutrophils # 0.0 K/mm3 02/15/20 06:59 Lymphocytes # (Manual) 3.5 K/mm3 (1.2-5.4) 02/15/20 06:59 Abs React Lymphs (Man) 0.1 K/mm3 02/15/20 06:59 Monocytes # (Manual) 0.4 K/mm3 (0.0-0.8) 02/15/20 06:59 Eosinophils # (Manual) 0.0 K/mm3 (0.0-0.4) 02/15/20 06:59 Basophils # (Manual) 0.2 K/mm3 (0.0-0.1) H 02/15/20 06:59 Metamyelocytes # 0.1 K/mm3 02/15/20 06:59 Myelocytes # 0.0 K/mm3 02/15/20 06:59 Promyelocytes # 0.0 K/mm3 02/15/20 06:59 Blast Cells # 0.0 K/mm3 02/15/20 06:59 WBC Morphology Not Reportable 02/15/20 06:59 Hypersegmented Neuts Not Reportable 02/15/20 06:59 Hyposegmented Neuts Not Reportable 02/15/20 06:59 Hypogranular Neuts Not Reportable 02/15/20 06:59 Smudge Cells Not Reportable 02/15/20 06:59 Toxic Granulation Not Reportable 02/15/20 06:59 Toxic Vacuolation Not Reportable 02/15/20 06:59 Dohle Bodies Not Reportable 02/15/20 06:59 Pelger-Huet Anomaly Not Reportable 02/15/20 06:59 Hector Rods Not Reportable 02/15/20 06:59 Platelet Estimate Consistent w auto 02/15/20 06:59 Clumped Platelets Not Reportable 02/15/20 06:59 Plt Clumps, EDTA Not Reportable 02/15/20 06:59 Large Platelets Not Reportable 02/15/20 06:59 Giant Platelets Not Reportable 02/15/20 06:59 Platelet Satelliting Not Reportable 02/15/20 06:59 Plt Morphology Comment Giant platelets 02/15/20 06:59 RBC Morphology Not Reportable 02/15/20 06:59 Dimorphic RBCs Not Reportable 02/15/20 06:59 Polychromasia Not Reportable 02/15/20 06:59 Hypochromasia 1+ 02/15/20 06:59 Poikilocytosis Few 02/15/20 06:59 Anisocytosis 1+ 02/15/20 06:59 Microcytosis Not Reportable 02/15/20 06:59 Macrocytosis Not Reportable 02/15/20 06:59 Spherocytes Not Reportable 02/15/20 06:59 Pappenheimer Bodies Not Reportable 02/15/20 06:59 Sickle Cells Not Reportable 02/15/20 06:59 Target Cells 1+ 02/15/20 06:59 Tear Drop Cells Few 02/15/20 06:59 Ovalocytes Not Reportable 02/15/20 06:59 Helmet Cells Not Reportable 02/15/20 06:59 Gottlieb-Elwood Bodies Not Reportable 02/15/20 06:59 [place] Rings Not Reportable 02/15/20 06:59 Oc Cells Not Reportable 02/15/20 06:59 Bite Cells Not Reportable 02/15/20 06:59 Crenated Cell Not Reportable 02/15/20 06:59 Elliptocytes Few 02/15/20 06:59 Acanthocytes (Spur) Not Reportable 02/15/20 06:59 Rouleaux Not Reportable 02/15/20 06:59 Hemoglobin C Crystals Not Reportable 02/15/20 06:59 Schistocytes Not Reportable 02/15/20 06:59 Malaria parasites Not Reportable 02/15/20 06:59 Clifford Bodies Not Reportable 02/15/20 06:59 Hem Pathologist Commnt No 02/15/20 06:59 PT 27.0 Sec. (12.2-14.9) H 02/07/20 15:03 INR 2.46 (0.87-1.13) H 02/07/20 15:03 APTT 31.5 Sec. (24.2-36.6) 01/22/20 09:58 Heparin Anti-Xa Level 1.34 U.I./ml (0.3-0.7) H 01/22/20 04:45 ABG pH 7.454 (7.320-7.450) H 03/12/20 04:45 POC ABG pCO2 45.6 mmHg (32.0-48.0) 03/12/20 04:45 ABG pCO2 47.8 mm Hg 02/20/20 06:45 POC ABG pO2 69.2 mmHg (83-108) L 03/12/20 04:45 ABG pO2 88.7 mm Hg (80.0-90.0) 02/20/20 06:45 POC ABG HCO3 31.3 03/12/20 04:45 ABG HCO3 33.3 mmol/L (20.0-26.0) H 02/20/20 06:45 ABG O2 Saturation 97.2 % (95.0-99.0) 02/20/20 06:45 ABG O2 Content 13.3 (0.0-44) 02/20/20 06:45 POC ABG Base Excess 6.5 03/12/20 04:45 ABG Base Excess 8.4 mmol/L (-2.0-3.0) H 02/20/20 06:45 ABG Hemoglobin 11.2 (12.0-17.5) L 03/12/20 04:45 ABG Oxyhemoglobin 84 (94-98) L 12/22/19 03:22 ABG Carboxyhemoglobin 2.9 % (0.0-5.0) 02/20/20 06:45 ABG Methemoglobin 0.4 % (0.0-1.5) 02/20/20 06:45 ABG Sodium 134.7 mmol/L (136.0-145.0) L 03/12/20 04:45 ABG Potassium 3.9 mmol/L (3.40-4.50) 03/12/20 04:45 ABG Chloride 98.0 mmol/L (98-107) 03/12/20 04:45 ABG Glucose 151 mg/dL (65-95) H 03/12/20 04:45 Oxyhemoglobin 94.1 % (95.0-99.0) L 02/20/20 06:45 Carboxyhemoglobin 0.7 (0.5-1.5) 12/22/19 03:22 FiO2 30 03/12/20 04:45 Sodium 139 mmol/L (137-145) 03/22/20 06:39 Potassium 3.8 mmol/L (3.6-5.0) 03/22/20 06:39 Chloride 100.9 mmol/L (98-107) 03/22/20 06:39 Carbon Dioxide 33 mmol/L (22-30) H 03/22/20 06:39 Anion Gap 9 mmol/L 03/22/20 06:39 BUN 19 mg/dL (9-20) 03/22/20 06:39 Creatinine 0.5 mg/dL (0.8-1.3) L 03/22/20 06:39 Estimated GFR > 60 ml/min 03/22/20 06:39 BUN/Creatinine Ratio 38 % 03/22/20 06:39 Glucose 147 mg/dL (75-100) H 03/22/20 06:39 POC Glucose 122 mg/dL (70-105) H 03/24/20 06:55 Lactic Acid 1.60 mmol/L (0.7-2.0) 02/03/20 12:49 Ferritin 84.4 ng/mL (30.0-300.0) 11/24/19 04:53 Calcium 9.0 mg/dL (8.4-10.2) 03/22/20 06:39 Phosphorus 4.10 mg/dL (2.5-4.5) 01/31/20 19:24 Magnesium 2.40 mg/dL (1.7-2.3) H 02/10/20 07:40 Total Bilirubin 0.90 mg/dL (0.1-1.2) 03/18/20 15:34 Direct Bilirubin 0.9 mg/dL (0-0.2) H 02/08/20 19:00 Indirect Bilirubin 0.4 mg/dL 02/08/20 19:00 Total Creatine Kinase 141 units/L (55-170) 11/24/19 02:53 CK-MB (CK-2) 4.3 ng/mL (0.0-4.0) H 11/24/19 02:53 AST 23 units/L (5-40) 03/18/20 15:34 CK-MB (CK-2) Rel Index 3.0 (0-4) 11/24/19 02:53 ALT 22 units/L (7-56) 03/18/20 15:34 Alkaline Phosphatase 96 units/L (35-129) 03/18/20 15:34 C-Reactive Protein 8.50 mg/dL (0.00-1.30) H 12/01/19 12:16 Ammonia 35.0 umol/L (25-60) 02/03/20 12:49 Lactate Dehydrogenase 228 units/L (91-180) H 12/19/19 04:45 Troponin T < 0.010 ng/mL (0.00-0.029) 01/19/20 01:35 NT-Pro-B Natriuret Pep 3866 pg/mL (0-900) H 01/01/20 10:40 Total Protein 6.2 g/dL (6.3-8.2) L 03/18/20 15:34 Albumin 2.8 g/dL (3.9-5) L 03/18/20 15:34 Albumin/Globulin Ratio 0.8 % 03/18/20 15:34 Procalcitonin 0.44 ng/mL (<0.15) 02/03/20 12:49 Arterial Blood Glucose 151 mg/dL (65-95) H 03/12/20 04:45 Arterial Blood Ionized Calcium 4.8 mg/dL (4.6-5.3) 03/12/20 04:45 Urine Color Cecy (Yellow) 02/26/20 07:50 Urine Turbidity Clear (Clear) 02/26/20 07:50 Urine pH 5.0 (5.0-7.0) 02/26/20 07:50 Ur Specific [place] 1.025 (1.003-1.030) 02/26/20 07:50 Urine Protein 30 mg/dl mg/dL (Negative) 02/26/20 07:50 Urine Glucose (UA) Neg mg/dL (Negative) 02/26/20 07:50 Urine Ketones Neg mg/dL (Negative) 02/26/20 07:50 Urine Blood Sm (Negative) 02/26/20 07:50 Urine Nitrite Neg (Negative) 02/26/20 07:50 Urine Bilirubin Neg (Negative) 02/26/20 07:50 Urine Urobilinogen 4.0 mg/dL (<2.0) 02/26/20 07:50 Ur Leukocyte Esterase Lg (Negative) 02/26/20 07:50 Urine WBC (Auto) > 182.0 /HPF (0.0-6.0) H 02/26/20 07:50 Urine RBC (Auto) 84.0 /HPF (0.0-6.0) 02/26/20 07:50 U Epithel Cells (Auto) 2.0 /HPF (0-13.0) 12/31/19 18:04 Urine Bacteria (Auto) 4+ /HPF (Negative) 02/26/20 07:50 Urine WBC Clumps 2+ /HPF 02/26/20 07:50 Urine Mucus 1+ /HPF 02/26/20 07:50 Urine Creatinine 57.4 mg/dL (0.1-20.0) H 01/31/20 Unknown Urine Sodium 59 mmol/L 01/31/20 Unknown Vancomycin Trough 14.2 ug/mL (5.0-20.0) 12/13/19 15:01 Digoxin 0.8 ng/mL (0.9-2.0) L 03/22/20 06:39 Coronavirus (PCR) Negative (Negative) 12/29/19 10:07 Hepatitis A IgM Ab Non-reactive (NonReactive) 02/05/20 06:37 Hep Bs Antigen Non-reactive (Negative) 02/05/20 06:37 Hep B Core IgM Ab Non-reactive (NonReactive) 02/05/20 06:37 Hepatitis C Antibody Non-reactive (NonReactive) 02/05/20 06:37 Blood Type O POSITIVE 01/21/20 13:00 Antibody Screen Negative 01/21/20 13:00 - Diagnostic Impressions Diagnostic Impressions: Echocardiogram 11/29/19 07:37 Transthoracic Echocardiogram Indication: CHF BP: 116/72 HR: 33 Conclusions *The study is technically limited due to poor acoustic windows. *Global left ventricular systolic function is normal. *The estimated ejection fraction is 50-55%. *Mild concentric left ventricular hypertrophy is observed. *There is trace of mitral regurgitation. *There is mild tricuspid regurgitation. Findings Procedure Info: The study quality is poor. The study is technically limited due to poor acoustic windows. The study is technically limited due to patient body habitus. Left Ventricle: The left ventricular chamber size is normal. Mild concentric left ventricular hypertrophy is observed. Global left ventricular systolic function is normal. The estimated ejection fraction is 50-55%. Left Atrium: The left atrial chamber size is normal. Right Ventricle: The right ventricular cavity size is normal. Right Atrium: The right atrial cavity size is normal. Aortic Valve: The aortic valve leaflets are moderately thickened. There is trace of aortic regurgitation. There is no evidence of aortic stenosis. Mitral Valve: The mitral valve leaflets are mildly thickened. There is trace of mitral regurgitation. There is no evidence of mitral stenosis. Tricuspid Valve: There is mild tricuspid regurgitation. No pulmonary hypertension is noted. Pulmonic Valve: There is trace pulmonic regurgitation. Pericardium: There is no pericardial effusion. Aorta: There is no dilatation of the aortic root. Venous: The inferior vena cava appears normal in size. Contrast: Definity was used to optimize study. Intravenous contrast was used to enhance endocardial border definition. Measurements Chambers 2D Name Value Normal Range Ao root diameter (2D) 3.4 cm (2 - 3.7) Aortic Valve Name Value Normal Range AV Vmax 0.98 m/sec - AV VTI 16.76 cm - AV peak gradient 3.83 mmHg - AV mean gradient 2.57 mmHg - LVOT diameter 3.11 cm - LVOT Vmax 0.68 m/sec - LVOT VTI 11.52 cm - LVOT peak gradient 1.84 mmHg - LVOT mean gradient 1.27 mmHg - SV LVOT 87.31 ml - MALOU (continuity Vmax) 5.24 cm2 - MALOU (continuity VTI) 5.21 cm2 - Tricuspid Valve Name Value Normal Range IVC diameter 2.24 cm (1.2 - 2.3) Hoffman/IV: Voiding Method Indwelling Catheter IV Catheter Type [Left INT / Saline Lock Antecubital] IV Catheter Type [Right INT / Saline Lock Forearm] IV Catheter Type [Right Hand] Peripheral IV IV Catheter Type [Right Upper INT / Saline Lock arm] IV Catheter Type [Left Upper Mid-line arm] IV Catheter Type [Left Forearm Peripheral IV ] IV Catheter Type [Left Hand] Peripheral IV IV Catheter Type [Left Wrist] INT / Saline Lock IV Catheter Type [Right Peripheral IV Antecubital] Active Medications - Current Medications Current Medications: Generic Name Dose Route Start Last Admin Trade Name Freq PRN Reason Stop Dose Admin Acetaminophen 650 mg 03/12/20 04:29 03/23/20 19:54 Acetaminophen 325 Mg/10.15 Ml Oral Liqd Unit Dose FEEDTUBE 650 mg Q6H PRN Administration Pain, Mild (1-3) Lipase/Protease/Amylase 1 each 01/09/20 12:01 03/18/20 11:09 Lipase 10,500/Protease 25,000/Amylase 43,750 (Units) Dr Lauren FEEDTUBE 1 each PRN PRN Administration For Clogged Feeding Tube Apixaban 5 mg 01/22/20 22:00 03/24/20 09:29 Apixaban 5 Mg Tab PO 5 mg Q12HR CAR Administration Protocol Atorvastatin Calcium 40 mg 01/20/20 22:00 03/23/20 22:13 Atorvastatin 40 Mg Tab PO 40 mg QHS CAR Administration Clopidogrel Bisulfate 75 mg 01/21/20 06:00 03/24/20 09:29 Clopidogrel 75 Mg Tab PO 75 mg QDAY CAR Administration Dextrose 50 ml 01/31/20 18:51 02/05/20 00:56 D50w (25gm) Syringe IV 50 ml Q30MIN PRN Administration Hypoglycemia Protocol Digoxin 0.125 mg 02/25/20 17:00 03/23/20 19:08 Lanoxin PO 0.125 mg DAILY@1700 CAR Administration Docusate Sodium 100 mg 02/22/20 10:00 03/24/20 09:29 Docusate Sodium 100 Mg/10 Ml Oral Liqd FEEDTUBE 100 mg BID CAR Administration Glycopyrrolate 2 mg 02/24/20 21:00 03/24/20 09:29 Glycopyrrolate PO 2 mg TID CAR Administration Haloperidol Lactate 5 mg 02/10/20 14:20 03/19/20 23:26 Haloperidol Lactate 5 Mg/1 Ml Inj IV 5 mg Q6H PRN Administration Agitation Hydrophilic Ointment 1 applic 01/17/20 15:26 02/24/20 23:20 Lip Therapy Vaseline TP 1 applic DIRECT PRN Administration Dry Lips Insulin Human Regular 0 unit 02/01/20 18:00 03/24/20 06:59 Humulin R SUB-Q Not Given Q6H [facility] Protocol Lansoprazole 30 mg 02/05/20 16:00 03/24/20 09:29 Lansoprazole 30 Mg Solutab FEEDTUBE 30 mg QDAY [facility] Administration Metoprolol Tartrate 5 mg 01/11/20 08:00 03/18/20 16:52 Metoprolol Tartrate 5 Mg/5 Ml Inj IV 5 mg Q6H PRN Administration SEE INSTRUCTIONS Metoprolol Tartrate 12.5 mg 02/28/20 12:00 03/24/20 09:29 Metoprolol FEEDTUBE 12.5 mg BID CAR Administration Midodrine 15 mg 02/04/20 16:00 03/24/20 09:29 Midodrine 5 Mg Tab PO 15 mg TID@0800,1200,1600 [facility] Administration Morphine Sulfate 2 mg 01/06/20 15:41 03/19/20 13:20 Morphine 2 Mg/1 Ml Inj IV 2 mg Q4H PRN Administration Pain, Moderate (4-6) Multi-Ingred Cream/Lotion/Oil/Oint 1 applic 02/01/20 15:52 Artificial Tears Ophth Oint OU Q4HR PRN Dry Eye(s) Nitroglycerin 0.4 mg 01/19/20 21:09 01/20/20 03:03 Nitroglycerin 0.4 Mg Tab Subl SL 0.4 mg .Q5MIN PRN Administration Chest Pain Ondansetron HCl 4 mg 01/05/20 14:37 03/18/20 11:09 Ondansetron 4 Mg/2 Ml Inj IV 4 mg Q8H PRN Administration Nausea And Vomiting Polyethylene Glycol 17 gm 12/04/19 22:00 03/23/20 22:14 Miralax 3350 PO 17 gm QHS CAR Administration Quetiapine Fumarate 300 mg 01/13/20 22:00 03/24/20 09:29 Quetiapine 100 Mg Tab PO 300 mg BID CAR Administration Simple Syrup 15 ml 01/09/20 12:01 Simple Syrup 15 Ml FEEDTUBE PRN PRN Hypoglycemia Simple Syrup 30 ml 01/09/20 12:01 Simple Syrup 15 Ml FEEDTUBE PRN PRN Hypoglycemia Sodium Bicarbonate 325 mg 01/09/20 12:01 03/07/20 12:56 Sodium Bicarbonate 325 Mg Tab FEEDTUBE 325 mg PRN PRN Administration For Clogged Feeding Tube Sodium Chloride 10 ml 11/24/19 10:00 03/24/20 09:30 Sodium Chloride 0.9% 10 Ml Flush Syringe IV 10 ml BID CAR Administration Tamsulosin HCl 0.8 mg 12/20/19 22:00 03/23/20 22:13 Tamsulosin 0.4 Mg Cap PO 0.8 mg QHS CAR Administration Nutrition/Malnutrition Assess - Dietary Evaluation Nutrition/Malnutrition Findings: Nutrition Notes Start: 11/24/19 12:22 Freq: Status: Active Protocol: Document 03/22/20 11:05 LM (Rec: 03/22/20 11:10 LM [id number]) Nutrition Notes Initial or Follow up Reassessment Current Diagnosis Coronary Artery Disease,Heart Failure,Respiratory Failure, Stroke,Hyperlipidemia Other Pertinent Diagnosis pneumonia Current Diet Osmolite 1.5 at 65ml/hr Labs/Tests Reviewed Pertinent Medications Humulin Height 6 ft 2 in Weight 130.5 kg [place] Body Weight (kg) 86.36 BMI 36.9 Weight change and time frame Wt change noted. Pt with edema . Weight Status Obese Subjective/Other Information TF running at 55ml/hr. Per RN pt tolerates TF at lower rate and pt vomits when rate is at 65ml/hr. Percent of energy/protein needs met: 95%/48% Burn Absent Trauma Absent GI Symptoms None Current % PO Negligible Minimum of two criteria Yes Muscle Mass Mild Depletion (non-severe) Fluid Accumulation Mild (non-severe) Reduced Insecticide Mixer Strength Measurably Reduced (severe) #2 Nutrition Diagnosis Malnutrition Diagnosis Progress(for reassessment Continues documentation) #1 Nutrition Diagnosis Inadequate oral intake Diagnosis Progress(for reassessment Continues documentation) Is patient on ventilator? Yes Is Patient Ambulatory and/or Out of Bed No [facility] 2608.188 Kcal/Kg value to use for calculation 16 Approximate Energy Requirements Using 2088 kcal/Kg Calculation Used for Recommendations Kcal/kg Additional Notes Protein needs are 173g ( greater than 2g/kg IBW) Fluid needs are 1 ml/kcal Nutrition Intervention Change Diet Order: Continue TF via PEG Nutrition Support: Osmolite 1.5 at 65 ml/hr. Flush 200 ml q4h. Kcal 2,340 Protein (gm) 98 Fluid (mL) 1,189 Goal #1 Meet at least 75% of pt's energy and protein needs via TF Goal #2 TF tolerance Anticipated Discharge Needs: unable to determine at this time Follow-Up By: 03/28/20 Additional Comments F/U for TF tolerance
--- NOTE | 2020-03-24 14:07 | Progress Note ---
Assessment and Plan - Patient Problems (1) Paroxysmal atrial fibrillation Current Visit: Yes Status: Acute Plan to address problem: Continue current management of atrial fibrillation on a rate control strategy and oral anticoagulation, stable cardiac status. Subjective Date of service: 03/24/20 Principal diagnosis: Ac hypoxemic resp failure; Pneumonia; PUI COVID-19; CHF; COPD; HTN Interval history: Patient is awake, on the vent via his trach. Heart rate is 118, atrial fibrillation. Objective Vital Signs Temp Pulse Pulse Resp Resp BP Pulse Ox 03/24/20 12:01 118 H 26 H 95/60 97 03/24/20 12:00 98.5 F 114 H 27 H 100 03/24/20 11:00 99 H 16 98/71 99 03/24/20 10:01 108 H 25 H 96/67 98 03/24/20 09:29 104 H 106/66 03/24/20 09:01 110 H 16 106/66 96 03/24/20 08:15 108 H 21 104/76 99 03/24/20 08:14 117 H 104/76 98 03/24/20 08:00 99.1 F 123 H 16 104/76 98 03/24/20 07:00 99 H 17 94/70 98 03/24/20 06:00 129 H 17 91/72 98 03/24/20 05:00 110 H 18 91/65 99 03/24/20 04:29 134 H 100/73 97 03/24/20 04:01 122 H 18 101/71 100 03/24/20 04:00 97.8 F 116 H 116 H 17 99 03/24/20 03:00 117 H 24 101/71 98 03/24/20 02:00 119 H 16 98/72 97 03/24/20 01:00 113 H 17 96/74 99 03/24/20 00:33 123 H 100/68 99 03/24/20 00:00 97.9 F 112 H 124 H 15 100/68 100 03/23/20 23:25 112 H 21 90/71 95 03/23/20 23:00 122 H 19 102/78 97 03/23/20 22:14 123 H 102/78 03/23/20 22:00 118 H 19 89/63 99 03/23/20 21:00 99 H 23 89/63 98 03/23/20 20:34 97 H 29 H 93/71 99 03/23/20 20:00 98.1 F 117 H 124 H 25 H 20 93/71 98 03/23/20 19:54 20 03/23/20 19:08 114 H 96/69 03/23/20 19:00 100 H 20 96/69 100 03/23/20 18:00 117 H 27 H 92/71 99 03/23/20 17:00 120 H 29 H 96/77 100 03/23/20 16:42 96 H 22 93/75 100 03/23/20 16:00 98.0 F 124 H 27 H 93/75 97 03/23/20 15:00 124 H 26 H 93/73 98 - Physical Examination General: No Apparent Distress, Other (s/p trach) HEENT: Positive: PERRL Neck: Positive: neck supple, Other (s/p trach) Cardiac: Positive: irregularly irregular Lungs: Positive: Decreased Breath Sounds Neuro: Positive: Grossly Intact, Weakness Abdomen: Positive: Soft Skin: Positive: Clear Extremities: Absent: edema - Allied health notes Allied health notes reviewed: nursing
[2020-03-24] MEDS: ACETAMINOPHEN 325 MG/10.15 ML ORAL LIQD UNIT DOSE FEEDTUBE PRN (14:25)
--- NOTE | 2020-03-24 15:55 | Progress Note ---
Assessment and Plan Acute hypoxemic respiratory failure Bilateral pneumonia, community acquired. Acute LLL branch P.E. Acute DVT Person under investigation for COVID-19 infection. Acute congestive heart failure exacerbation. History of cerebrovascular accident. Acute chronic obstructive pulmonary disease exacerbation. Hypertension and hypertensive urgency at presentation. History of arthritis. Leukocytosis. Lactic acidosis. Oropharyngeal dysphagia - repeat CXR - resume low dose diuresis (Lasix 20 mg IV X 1 then 20 mg p.o. daily) - remains a difficult wean, continue care as below; - continue daily SAT's and SBT assessment as tolerated - continue to wean oxygen for O2 sat's > 92% - continue bronchodilators with routine trach care and pulmonary hygiene per RT - VAP bundle addressed (Aspiration precautions, HOB >40) - continue to wean per pulmonary driven protocols - continue to rest on AC qhs - continue Flomax - antiinfective's per ID rec's - Midodrine for BP support - prn mucomyst nebs re: secretions - continue full anticoagulation with Apixaban - continue seroquel for anxiolysis / delirium - COVID isolation per facility protocol - prn diuresis while following electrolytes / I's & O's - sedation target is RASS 0 to -1 - continue prn analgesia per CPOT score - follow clinically re: fever curves / trend WBC - Avoid delirium (no benzodiazepines if they can be avoided) - Maintain sleep-wake cycle - enteral nutrition at goal rate as tolerated - continue accucheck's with glycemic control per SSI for target blood glucose g oal of 140-180 mg/dL while critically ill; Avoid hypoglycemia - for VTE he is onEliquis - continue stress ulcer prophylaxis with Famotidine - continue mobility protocols for pressure ulcer prophylaxis - continue fall precautions - continue wound care management per RN / WCT - Supportive transfusions to keep HgB>7g/dL - CXR's and ABG's prn - Continue to monitor neurologic function - Continue chronic home medications - Continue all supportive care ........ re-evaluate in am & prn CONDITION: CRITICAL PROGNOSIS: GUARDED CODE STATUS: FULL CODE The high probability of a clinically significant, sudden or life threatening deterioration of the [Respiratory, cardiovascular & neurological] system(s) required my full and direct attention, intervention and personal management. The aggregate critical care time was [33] minutes without overlap. Time includes spent on [x] Data Review and interpretation [x] Patient assessment and monitoring of vital signs [x] Documentation [x] Medication orders and management Subjective Date of service: 03/24/20 Principal diagnosis: Ac hypoxemic resp failure; Pneumonia; PUI COVID-19; CHF; COPD; HTN Interval history: Patient is seen today for: Acute hypoxemic respiratory failure; [place]. Pneumonia (CAP); PUI COVID-19 infection; AE-CHF; AE-COPD; H/O CVA; HTN Seen and examined at bedside; 24 hour events reviewed; nursing and respiratory care staff consulted; no adverse overnight events reported to me; resting peacefully in bed; remains on MVS; still weaning tenuously but on p-supp of 16 now and tolerating well; did 8 hours prior Objective Vital Signs - 12hr 03/24/20 03/24/20 03/24/20 04:00 04:01 04:29 Temperature 97.8 F Pulse Rate 116 H 122 H 134 H Pulse Rate [ 116 H From Monitor] Respiratory 17 18 Rate Blood Pressure 101/71 100/73 O2 Sat by Pulse 99 100 97 Oximetry 03/24/20 03/24/20 03/24/20 05:00 06:00 07:00 Temperature Pulse Rate 110 H 129 H 99 H Pulse Rate [ From Monitor] Respiratory 18 17 17 Rate Blood Pressure 91/65 91/72 94/70 O2 Sat by Pulse 99 98 98 Oximetry 03/24/20 03/24/20 03/24/20 08:00 08:14 08:15 Temperature 99.1 F Pulse Rate 123 H 117 H 108 H Pulse Rate [ From Monitor] Respiratory 16 21 Rate Blood Pressure 104/76 104/76 104/76 O2 Sat by Pulse 98 98 99 Oximetry 03/24/20 03/24/20 03/24/20 09:01 09:29 10:01 Temperature Pulse Rate 110 H 104 H 108 H Pulse Rate [ From Monitor] Respiratory 16 25 H Rate Blood Pressure 106/66 106/66 96/67 O2 Sat by Pulse 96 98 Oximetry 03/24/20 03/24/20 03/24/20 11:00 12:00 12:01 Temperature 98.5 F Pulse Rate 99 H 114 H 118 H Pulse Rate [ From Monitor] Respiratory 16 27 H 26 H Rate Blood Pressure 98/71 95/60 O2 Sat by Pulse 99 100 97 Oximetry 03/24/20 13:16 Temperature Pulse Rate 113 H Pulse Rate [ From Monitor] Respiratory 24 Rate Blood Pressure 98/78 O2 Sat by Pulse 99 Oximetry Constitutional: no acute distress, other (elderly and obese male, normocephalic with mildly increased respiratory effort at rest) Eyes: non-icteric ENT: oropharynx moist, other (+ midline tracheostomy) Neck: supple, no JVD Effort: mildly labored Ascultation: Bilateral: diminished breath sounds, rhonchi (scant) Percussion: Bilateral: not dull Cardiovascular: irregular rhythm Gastrointestinal: normoactive bowel sounds, soft, non-tender, non-distended (protuberant), other (protuberant; PEG in place) Integumentary: normal Extremities: no cyanosis, pulses normal, no ischemia or petechiae, edema (2+) Neurologic: non-focal exam (grossly; moves extremities), pupils equal and round, unable to assess Psychiatric: mood appropriate, affect normal CBC and BMP: 03/22/20 06:39 03/22/20 06:39 ABG, PT/INR, D-dimer: ABG ABG pH 7.454 (7.320-7.450) H 03/12/20 04:45 POC ABG pCO2 45.6 mmHg (32.0-48.0) 03/12/20 04:45 ABG pCO2 47.8 mm Hg 02/20/20 06:45 POC ABG pO2 69.2 mmHg (83-108) L 03/12/20 04:45 ABG pO2 88.7 mm Hg (80.0-90.0) 02/20/20 06:45 POC ABG HCO3 31.3 03/12/20 04:45 ABG O2 Saturation 97.2 % (95.0-99.0) 02/20/20 06:45 PT/INR, D-dimer PT 27.0 Sec. (12.2-14.9) H 02/07/20 15:03 INR 2.46 (0.87-1.13) H 02/07/20 15:03 Abnormal lab findings: Abnormal Labs 11/24/19 11/24/19 11/24/19 02:53 02:53 03:45 WBC 14.3 H RBC Hgb Hct MCHC RDW 17.2 H MCV MCH Lymph % (Auto) [place] % (Auto) [place] # Eos # Lymph # (Auto) [place] # (Auto) Eos # (Auto) Seg Neutrophils % Seg Neuts % (Manual) Baso # (Auto) Lymphocytes % (Manual) Monocytes % (Manual) Eosinophils % (Manual) Basophils % (Manual) Seg Neutrophils # Seg Neutrophils # Man 8.3 H Lymphocytes # (Manual) Monocytes # (Manual) 0.9 H Eosinophils # (Manual) Nucleated RBC % Basophils # (Manual) PT INR APTT Heparin Anti-Xa Level ABG pH 7.313 L POC ABG pO2 ABG pO2 102.8 H ABG HCO3 ABG O2 Saturation ABG Base Excess -2.9 L POC ABG pCO2 ABG Hemoglobin ABG Oxyhemoglobin ABG Sodium ABG Chloride ABG Glucose Oxyhemoglobin 93.9 L Sodium Potassium Chloride Carbon Dioxide BUN Creatinine Glucose 195 H POC Glucose Lactic Acid Calcium Phosphorus Magnesium AST ALT Lactate Dehydrogenase Total Bilirubin Direct Bilirubin CK-MB (CK-2) 4.3 H C-Reactive Protein NT-Pro-B Natriuret Pep 1181 H Total Protein Albumin Arterial Blood Glucose Urine WBC (Auto) Urine Creatinine Digoxin 11/24/19 11/24/19 11/24/19 04:53 04:53 10:37 WBC RBC Hgb Hct MCHC RDW MCV MCH Lymph % (Auto) [place] % (Auto) [place] # Eos # Lymph # (Auto) [place] # (Auto) Eos # (Auto) Seg Neutrophils % Seg Neuts % (Manual) Baso # (Auto) Lymphocytes % (Manual) Monocytes % (Manual) Eosinophils % (Manual) Basophils % (Manual) Seg Neutrophils # Seg Neutrophils # Man Lymphocytes # (Manual) Monocytes # (Manual) Eosinophils # (Manual) Nucleated RBC % Basophils # (Manual) PT INR APTT Heparin Anti-Xa Level ABG pH POC ABG pO2 ABG pO2 ABG HCO3 ABG O2 Saturation ABG Base Excess POC ABG pCO2 ABG Hemoglobin ABG Oxyhemoglobin ABG Sodium ABG Chloride ABG Glucose Oxyhemoglobin Sodium Potassium Chloride Carbon Dioxide BUN Creatinine Glucose 162 H POC Glucose Lactic Acid 2.40 H* 2.50 H* Calcium Phosphorus Magnesium AST ALT Lactate Dehydrogenase 240 H Total Bilirubin Direct Bilirubin CK-MB (CK-2) C-Reactive Protein NT-Pro-B Natriuret Pep Total Protein Albumin Arterial Blood Glucose Urine WBC (Auto) Urine Creatinine Digoxin 11/24/19 11/24/19 11/24/19 12:21 14:50 19:54 WBC RBC Hgb Hct MCHC RDW MCV MCH Lymph % (Auto) [place] % (Auto) [place] # Eos # Lymph # (Auto) [place] # (Auto) Eos # (Auto) Seg Neutrophils % Seg Neuts % (Manual) Baso # (Auto) Lymphocytes % (Manual) Monocytes % (Manual) Eosinophils % (Manual) Basophils % (Manual) Seg Neutrophils # Seg Neutrophils # Man Lymphocytes # (Manual) Monocytes # (Manual) Eosinophils # (Manual) Nucleated RBC % Basophils # (Manual) PT INR APTT Heparin Anti-Xa Level ABG pH POC ABG pO2 ABG pO2 ABG HCO3 ABG O2 Saturation ABG Base Excess POC ABG pCO2 ABG Hemoglobin ABG Oxyhemoglobin ABG Sodium ABG Chloride ABG Glucose Oxyhemoglobin Sodium Potassium Chloride Carbon Dioxide BUN Creatinine Glucose POC Glucose 145 H 143 H 124 H Lactic Acid Calcium Phosphorus Magnesium AST ALT Lactate Dehydrogenase Total Bilirubin Direct Bilirubin CK-MB (CK-2) C-Reactive Protein NT-Pro-B Natriuret Pep Total Protein Albumin Arterial Blood Glucose Urine WBC (Auto) Urine Creatinine Digoxin 11/25/19 11/25/19 11/25/19 00:18 03:18 05:11 WBC 13.7 H RBC Hgb Hct MCHC RDW 17.1 H MCV MCH Lymph % (Auto) 10.8 L [place] % (Auto) 8.7 H [place] # 1.2 H Eos # Lymph # (Auto) [place] # (Auto) Eos # (Auto) Seg Neutrophils % 80.2 H Seg Neuts % (Manual) Baso # (Auto) Lymphocytes % (Manual) Monocytes % (Manual) Eosinophils % (Manual) Basophils % (Manual) Seg Neutrophils # 11.0 H Seg Neutrophils # Man Lymphocytes # (Manual) Monocytes # (Manual) Eosinophils # (Manual) Nucleated RBC % Basophils # (Manual) PT INR APTT Heparin Anti-Xa Level ABG pH 7.333 L POC ABG pO2 ABG pO2 61.2 L ABG HCO3 ABG O2 Saturation 90.2 L ABG Base Excess POC ABG pCO2 ABG Hemoglobin 13.7 L ABG Oxyhemoglobin ABG Sodium ABG Chloride ABG Glucose Oxyhemoglobin 88.2 L Sodium Potassium Chloride Carbon Dioxide BUN Creatinine Glucose POC Glucose 109 H Lactic Acid Calcium Phosphorus Magnesium AST ALT Lactate Dehydrogenase Total Bilirubin Direct Bilirubin CK-MB (CK-2) C-Reactive Protein NT-Pro-B Natriuret Pep Total Protein Albumin Arterial Blood Glucose Urine WBC (Auto) Urine Creatinine Digoxin 11/25/19 11/25/19 11/26/19 05:11 11:40 03:12 WBC RBC Hgb Hct MCHC RDW MCV MCH Lymph % (Auto) [place] % (Auto) [place] # Eos # Lymph # (Auto) [place] # (Auto) Eos # (Auto) Seg Neutrophils % Seg Neuts % (Manual) Baso # (Auto) Lymphocytes % (Manual) Monocytes % (Manual) Eosinophils % (Manual) Basophils % (Manual) Seg Neutrophils # Seg Neutrophils # Man Lymphocytes # (Manual) Monocytes # (Manual) Eosinophils # (Manual) Nucleated RBC % Basophils # (Manual) PT INR APTT Heparin Anti-Xa Level ABG pH POC ABG pO2 ABG pO2 155.1 H ABG HCO3 27.8 H ABG O2 Saturation ABG Base Excess POC ABG pCO2 ABG Hemoglobin 12.2 L ABG Oxyhemoglobin ABG Sodium ABG Chloride ABG Glucose Oxyhemoglobin Sodium Potassium Chloride Carbon Dioxide BUN 23 H Creatinine Glucose 110 H POC Glucose 108 H Lactic Acid Calcium Phosphorus Magnesium AST ALT Lactate Dehydrogenase Total Bilirubin Direct Bilirubin CK-MB (CK-2) C-Reactive Protein NT-Pro-B Natriuret Pep Total Protein Albumin Arterial Blood Glucose Urine WBC (Auto) Urine Creatinine Digoxin 11/26/19 11/26/19 11/26/19 06:17 10:43 10:43 WBC 11.4 H RBC Hgb Hct MCHC RDW 17.1 H MCV MCH Lymph % (Auto) [place] % (Auto) [place] # Eos # Lymph # (Auto) [place] # (Auto) Eos # (Auto) Seg Neutrophils % Seg Neuts % (Manual) Baso # (Auto) Lymphocytes % (Manual) Monocytes % (Manual) Eosinophils % (Manual) Basophils % (Manual) Seg Neutrophils # Seg Neutrophils # Man Lymphocytes # (Manual) Monocytes # (Manual) Eosinophils # (Manual) Nucleated RBC % Basophils # (Manual) PT INR APTT Heparin Anti-Xa Level ABG pH POC ABG pO2 ABG pO2 ABG HCO3 ABG O2 Saturation ABG Base Excess POC ABG pCO2 ABG Hemoglobin ABG Oxyhemoglobin ABG Sodium ABG Chloride ABG Glucose Oxyhemoglobin Sodium Potassium Chloride Carbon Dioxide BUN 29 H Creatinine Glucose POC Glucose 107 H Lactic Acid Calcium Phosphorus Magnesium AST ALT Lactate Dehydrogenase Total Bilirubin Direct Bilirubin CK-MB (CK-2) C-Reactive Protein NT-Pro-B Natriuret Pep Total Protein Albumin Arterial Blood Glucose Urine WBC (Auto) Urine Creatinine Digoxin 11/26/19 11/27/19 11/27/19 17:11 01:53 04:11 WBC RBC Hgb Hct MCHC RDW MCV MCH Lymph % (Auto) [place] % (Auto) [place] # Eos # Lymph # (Auto) [place] # (Auto) Eos # (Auto) Seg Neutrophils % Seg Neuts % (Manual) Baso # (Auto) Lymphocytes % (Manual) Monocytes % (Manual) Eosinophils % (Manual) Basophils % (Manual) Seg Neutrophils # Seg Neutrophils # Man Lymphocytes # (Manual) Monocytes # (Manual) Eosinophils # (Manual) Nucleated RBC % Basophils # (Manual) PT INR APTT Heparin Anti-Xa Level ABG pH POC ABG pO2 ABG pO2 ABG HCO3 29.2 H ABG O2 Saturation ABG Base Excess 3.4 H POC ABG pCO2 ABG Hemoglobin 13.3 L ABG Oxyhemoglobin ABG Sodium ABG Chloride ABG Glucose Oxyhemoglobin 94.5 L Sodium Potassium Chloride Carbon Dioxide BUN Creatinine Glucose POC Glucose 113 H 108 H Lactic Acid Calcium Phosphorus Magnesium AST ALT Lactate Dehydrogenase Total Bilirubin Direct Bilirubin CK-MB (CK-2) C-Reactive Protein NT-Pro-B Natriuret Pep Total Protein Albumin Arterial Blood Glucose Urine WBC (Auto) Urine Creatinine Digoxin 11/27/19 11/28/19 11/28/19 05:27 05:00 05:25 WBC RBC Hgb Hct MCHC RDW MCV MCH Lymph % (Auto) [place] % (Auto) [place] # Eos # Lymph # (Auto) [place] # (Auto) Eos # (Auto) Seg Neutrophils % Seg Neuts % (Manual) Baso # (Auto) Lymphocytes % (Manual) Monocytes % (Manual) Eosinophils % (Manual) Basophils % (Manual) Seg Neutrophils # Seg Neutrophils # Man Lymphocytes # (Manual) Monocytes # (Manual) Eosinophils # (Manual) Nucleated RBC % Basophils # (Manual) PT INR APTT Heparin Anti-Xa Level ABG pH POC ABG pO2 68.1 L ABG pO2 ABG HCO3 ABG O2 Saturation ABG Base Excess POC ABG pCO2 ABG Hemoglobin ABG Oxyhemoglobin 91.2 L ABG Sodium ABG Chloride ABG Glucose Oxyhemoglobin Sodium Potassium Chloride Carbon Dioxide BUN Creatinine Glucose POC Glucose 111 H 110 H Lactic Acid Calcium Phosphorus Magnesium AST ALT Lactate Dehydrogenase Total Bilirubin Direct Bilirubin CK-MB (CK-2) C-Reactive Protein NT-Pro-B Natriuret Pep Total Protein Albumin Arterial Blood Glucose Urine WBC (Auto) Urine Creatinine Digoxin 11/28/19 11/28/19 11/28/19 12:08 13:47 13:47 WBC 11.3 H RBC Hgb Hct MCHC RDW 16.1 H MCV MCH Lymph % (Auto) [place] % (Auto) 9.9 H [place] # 1.1 H Eos # Lymph # (Auto) [place] # (Auto) Eos # (Auto) Seg Neutrophils % 71.4 H Seg Neuts % (Manual) Baso # (Auto) Lymphocytes % (Manual) Monocytes % (Manual) Eosinophils % (Manual) Basophils % (Manual) Seg Neutrophils # 8.1 H Seg Neutrophils # Man Lymphocytes # (Manual) Monocytes # (Manual) Eosinophils # (Manual) Nucleated RBC % Basophils # (Manual) PT INR APTT Heparin Anti-Xa Level ABG pH POC ABG pO2 ABG pO2 ABG HCO3 ABG O2 Saturation ABG Base Excess POC ABG pCO2 ABG Hemoglobin ABG Oxyhemoglobin ABG Sodium ABG Chloride ABG Glucose Oxyhemoglobin Sodium Potassium Chloride Carbon Dioxide BUN 23 H Creatinine Glucose 123 H POC Glucose 112 H Lactic Acid Calcium Phosphorus Magnesium AST ALT Lactate Dehydrogenase Total Bilirubin Direct Bilirubin CK-MB (CK-2) C-Reactive Protein NT-Pro-B Natriuret Pep Total Protein Albumin 3.7 L Arterial Blood Glucose Urine WBC (Auto) Urine Creatinine Digoxin 11/28/19 11/29/19 11/29/19 17:26 03:55 17:04 WBC RBC Hgb Hct MCHC RDW MCV MCH Lymph % (Auto) [place] % (Auto) [place] # Eos # Lymph # (Auto) [place] # (Auto) Eos # (Auto) Seg Neutrophils % Seg Neuts % (Manual) Baso # (Auto) Lymphocytes % (Manual) Monocytes % (Manual) Eosinophils % (Manual) Basophils % (Manual) Seg Neutrophils # Seg Neutrophils # Man Lymphocytes # (Manual) Monocytes # (Manual) Eosinophils # (Manual) Nucleated RBC % Basophils # (Manual) PT INR APTT Heparin Anti-Xa Level ABG pH POC ABG pO2 ABG pO2 65.7 L ABG HCO3 28.3 H ABG O2 Saturation 93.9 L ABG Base Excess 3.6 H POC ABG pCO2 ABG Hemoglobin 13.3 L ABG Oxyhemoglobin ABG Sodium ABG Chloride ABG Glucose Oxyhemoglobin 91.5 L Sodium Potassium Chloride Carbon Dioxide BUN Creatinine Glucose POC Glucose 123 H 119 H Lactic Acid Calcium Phosphorus Magnesium AST ALT Lactate Dehydrogenase Total Bilirubin Direct Bilirubin CK-MB (CK-2) C-Reactive Protein NT-Pro-B Natriuret Pep Total Protein Albumin Arterial Blood Glucose Urine WBC (Auto) Urine Creatinine Digoxin 11/30/19 11/30/19 11/30/19 04:17 04:17 04:56 WBC 13.4 H RBC Hgb Hct MCHC RDW 15.6 H MCV MCH Lymph % (Auto) [place] % (Auto) [place] # Eos # Lymph # (Auto) [place] # (Auto) Eos # (Auto) Seg Neutrophils % Seg Neuts % (Manual) Baso # (Auto) Lymphocytes % (Manual) Monocytes % (Manual) Eosinophils % (Manual) Basophils % (Manual) Seg Neutrophils # Seg Neutrophils # Man Lymphocytes # (Manual) Monocytes # (Manual) Eosinophils # (Manual) Nucleated RBC % Basophils # (Manual) PT INR APTT Heparin Anti-Xa Level ABG pH POC ABG pO2 ABG pO2 56.3 L ABG HCO3 29.3 H ABG O2 Saturation 91.5 L ABG Base Excess 4.7 H POC ABG pCO2 ABG Hemoglobin 12.1 L ABG Oxyhemoglobin ABG Sodium ABG Chloride ABG Glucose Oxyhemoglobin 89.2 L Sodium 147 H Potassium Chloride Carbon Dioxide BUN 30 H Creatinine Glucose 124 H POC Glucose Lactic Acid Calcium Phosphorus Magnesium AST ALT Lactate Dehydrogenase Total Bilirubin Direct Bilirubin CK-MB (CK-2) C-Reactive Protein NT-Pro-B Natriuret Pep Total Protein Albumin 3.8 L Arterial Blood Glucose Urine WBC (Auto) Urine Creatinine Digoxin 11/30/19 11/30/19 11/30/19 05:51 11:54 18:17 WBC RBC Hgb Hct MCHC RDW MCV MCH Lymph % (Auto) [place] % (Auto) [place] # Eos # Lymph # (Auto) [place] # (Auto) Eos # (Auto) Seg Neutrophils % Seg Neuts % (Manual) Baso # (Auto) Lymphocytes % (Manual) Monocytes % (Manual) Eosinophils % (Manual) Basophils % (Manual) Seg Neutrophils # Seg Neutrophils # Man Lymphocytes # (Manual) Monocytes # (Manual) Eosinophils # (Manual) Nucleated RBC % Basophils # (Manual) PT INR APTT Heparin Anti-Xa Level ABG pH POC ABG pO2 ABG pO2 ABG HCO3 ABG O2 Saturation ABG Base Excess POC ABG pCO2 ABG Hemoglobin ABG Oxyhemoglobin ABG Sodium ABG Chloride ABG Glucose Oxyhemoglobin Sodium Potassium Chloride Carbon Dioxide BUN Creatinine Glucose POC Glucose 127 H 115 H 143 H Lactic Acid Calcium Phosphorus Magnesium AST ALT Lactate Dehydrogenase Total Bilirubin Direct Bilirubin CK-MB (CK-2) C-Reactive Protein NT-Pro-B Natriuret Pep Total Protein Albumin Arterial Blood Glucose Urine WBC (Auto) Urine Creatinine Digoxin 12/01/19 12/01/19 12/01/19 01:18 05:22 12:16 WBC RBC Hgb Hct MCHC RDW MCV MCH Lymph % (Auto) [place] % (Auto) [place] # Eos # Lymph # (Auto) [place] # (Auto) Eos # (Auto) Seg Neutrophils % Seg Neuts % (Manual) Baso # (Auto) Lymphocytes % (Manual) Monocytes % (Manual) Eosinophils % (Manual) Basophils % (Manual) Seg Neutrophils # Seg Neutrophils # Man Lymphocytes # (Manual) Monocytes # (Manual) Eosinophils # (Manual) Nucleated RBC % Basophils # (Manual) PT INR APTT Heparin Anti-Xa Level ABG pH POC ABG pO2 ABG pO2 ABG HCO3 ABG O2 Saturation ABG Base Excess POC ABG pCO2 ABG Hemoglobin ABG Oxyhemoglobin ABG Sodium ABG Chloride ABG Glucose Oxyhemoglobin Sodium Potassium 3.5 L Chloride 107.8 H Carbon Dioxide BUN 37 H Creatinine Glucose 157 H POC Glucose 118 H 148 H Lactic Acid Calcium 8.2 L D Phosphorus Magnesium AST 48 H ALT 60 H Lactate Dehydrogenase 194 H Total Bilirubin Direct Bilirubin CK-MB (CK-2) C-Reactive Protein 8.50 H NT-Pro-B Natriuret Pep Total Protein 5.5 L Albumin 2.8 L Arterial Blood Glucose Urine WBC (Auto) Urine Creatinine Digoxin 12/01/19 12/02/19 12/02/19 18:04 00:05 05:16 WBC 11.4 H RBC Hgb Hct MCHC RDW 15.9 H MCV MCH Lymph % (Auto) [place] % (Auto) 9.9 H [place] # 1.1 H Eos # Lymph # (Auto) [place] # (Auto) Eos # (Auto) Seg Neutrophils % 70.3 H Seg Neuts % (Manual) Baso # (Auto) Lymphocytes % (Manual) Monocytes % (Manual) Eosinophils % (Manual) Basophils % (Manual) Seg Neutrophils # 8.0 H Seg Neutrophils # Man Lymphocytes # (Manual) Monocytes # (Manual) Eosinophils # (Manual) Nucleated RBC % Basophils # (Manual) PT INR APTT Heparin Anti-Xa Level ABG pH POC ABG pO2 ABG pO2 ABG HCO3 ABG O2 Saturation ABG Base Excess POC ABG pCO2 ABG Hemoglobin ABG Oxyhemoglobin ABG Sodium ABG Chloride ABG Glucose Oxyhemoglobin Sodium Potassium Chloride Carbon Dioxide BUN Creatinine Glucose POC Glucose 143 H 107 H Lactic Acid Calcium Phosphorus Magnesium AST ALT Lactate Dehydrogenase Total Bilirubin Direct Bilirubin CK-MB (CK-2) C-Reactive Protein NT-Pro-B Natriuret Pep Total Protein Albumin Arterial Blood Glucose Urine WBC (Auto) Urine Creatinine Digoxin 12/02/19 12/02/19 12/02/19 05:16 06:03 11:52 WBC RBC Hgb Hct MCHC RDW MCV MCH Lymph % (Auto) [place] % (Auto) [place] # Eos # Lymph # (Auto) [place] # (Auto) Eos # (Auto) Seg Neutrophils % Seg Neuts % (Manual) Baso # (Auto) Lymphocytes % (Manual) Monocytes % (Manual) Eosinophils % (Manual) Basophils % (Manual) Seg Neutrophils # Seg Neutrophils # Man Lymphocytes # (Manual) Monocytes # (Manual) Eosinophils # (Manual) Nucleated RBC % Basophils # (Manual) PT INR APTT Heparin Anti-Xa Level ABG pH POC ABG pO2 ABG pO2 ABG HCO3 ABG O2 Saturation ABG Base Excess POC ABG pCO2 ABG Hemoglobin ABG Oxyhemoglobin ABG Sodium ABG Chloride ABG Glucose Oxyhemoglobin Sodium 146 H Potassium Chloride Carbon Dioxide BUN 28 H Creatinine Glucose 123 H POC Glucose 110 H 152 H Lactic Acid Calcium Phosphorus Magnesium AST ALT Lactate Dehydrogenase Total Bilirubin Direct Bilirubin CK-MB (CK-2) C-Reactive Protein NT-Pro-B Natriuret Pep Total Protein Albumin Arterial Blood Glucose Urine WBC (Auto) Urine Creatinine Digoxin 12/02/19 12/02/19 12/02/19 12:58 17:58 23:36 WBC RBC Hgb Hct MCHC RDW MCV MCH Lymph % (Auto) [place] % (Auto) [place] # Eos # Lymph # (Auto) [place] # (Auto) Eos # (Auto) Seg Neutrophils % Seg Neuts % (Manual) Baso # (Auto) Lymphocytes % (Manual) Monocytes % (Manual) Eosinophils % (Manual) Basophils % (Manual) Seg Neutrophils # Seg Neutrophils # Man Lymphocytes # (Manual) Monocytes # (Manual) Eosinophils # (Manual) Nucleated RBC % Basophils # (Manual) PT INR APTT Heparin Anti-Xa Level ABG pH POC ABG pO2 78.1 L ABG pO2 ABG HCO3 ABG O2 Saturation ABG Base Excess POC ABG pCO2 ABG Hemoglobin ABG Oxyhemoglobin ABG Sodium ABG Chloride ABG Glucose Oxyhemoglobin Sodium Potassium Chloride Carbon Dioxide BUN Creatinine Glucose POC Glucose 120 H 123 H Lactic Acid Calcium Phosphorus Magnesium AST ALT Lactate Dehydrogenase Total Bilirubin Direct Bilirubin CK-MB (CK-2) C-Reactive Protein NT-Pro-B Natriuret Pep Total Protein Albumin Arterial Blood Glucose Urine WBC (Auto) Urine Creatinine Digoxin 12/03/19 12/03/19 12/03/19 06:03 06:14 11:46 WBC RBC Hgb Hct MCHC RDW MCV MCH Lymph % (Auto) [place] % (Auto) [place] # Eos # Lymph # (Auto) [place] # (Auto) Eos # (Auto) Seg Neutrophils % Seg Neuts % (Manual) Baso # (Auto) Lymphocytes % (Manual) Monocytes % (Manual) Eosinophils % (Manual) Basophils % (Manual) Seg Neutrophils # Seg Neutrophils # Man Lymphocytes # (Manual) Monocytes # (Manual) Eosinophils # (Manual) Nucleated RBC % Basophils # (Manual) PT INR APTT Heparin Anti-Xa Level ABG pH POC ABG pO2 ABG pO2 ABG HCO3 ABG O2 Saturation ABG Base Excess POC ABG pCO2 ABG Hemoglobin ABG Oxyhemoglobin ABG Sodium ABG Chloride ABG Glucose Oxyhemoglobin Sodium Potassium Chloride Carbon Dioxide BUN Creatinine Glucose POC Glucose 142 H 130 H Lactic Acid Calcium Phosphorus Magnesium AST ALT Lactate Dehydrogenase Total Bilirubin Direct Bilirubin CK-MB (CK-2) C-Reactive Protein NT-Pro-B Natriuret Pep Total Protein Albumin Arterial Blood Glucose Urine WBC (Auto) 8.0 H Urine Creatinine Digoxin 12/03/19 12/03/19 12/04/19 15:50 17:39 00:04 WBC RBC Hgb Hct MCHC RDW MCV MCH Lymph % (Auto) [place] % (Auto) [place] # Eos # Lymph # (Auto) [place] # (Auto) Eos # (Auto) Seg Neutrophils % Seg Neuts % (Manual) Baso # (Auto) Lymphocytes % (Manual) Monocytes % (Manual) Eosinophils % (Manual) Basophils % (Manual) Seg Neutrophils # Seg Neutrophils # Man Lymphocytes # (Manual) Monocytes # (Manual) Eosinophils # (Manual) Nucleated RBC % Basophils # (Manual) PT INR APTT Heparin Anti-Xa Level ABG pH POC ABG pO2 ABG pO2 ABG HCO3 ABG O2 Saturation ABG Base Excess POC ABG pCO2 ABG Hemoglobin ABG Oxyhemoglobin ABG Sodium ABG Chloride ABG Glucose Oxyhemoglobin Sodium Potassium Chloride Carbon Dioxide BUN Creatinine Glucose POC Glucose 146 H 133 H Lactic Acid Calcium Phosphorus 2.40 L Magnesium AST ALT Lactate Dehydrogenase Total Bilirubin Direct Bilirubin CK-MB (CK-2) C-Reactive Protein NT-Pro-B Natriuret Pep Total Protein Albumin Arterial Blood Glucose Urine WBC (Auto) Urine Creatinine Digoxin 12/04/19 12/04/19 12/04/19 03:58 03:58 05:22 WBC 12.5 H RBC Hgb 11.2 L Hct 35.2 L MCHC RDW 16.0 H MCV MCH Lymph % (Auto) [place] % (Auto) 9.6 H [place] # 1.2 H Eos # 0.5 H Lymph # (Auto) [place] # (Auto) Eos # (Auto) Seg Neutrophils % Seg Neuts % (Manual) Baso # (Auto) Lymphocytes % (Manual) Monocytes % (Manual) Eosinophils % (Manual) Basophils % (Manual) Seg Neutrophils # 8.6 H Seg Neutrophils # Man Lymphocytes # (Manual) Monocytes # (Manual) Eosinophils # (Manual) Nucleated RBC % Basophils # (Manual) PT INR APTT Heparin Anti-Xa Level ABG pH POC ABG pO2 ABG pO2 ABG HCO3 ABG O2 Saturation ABG Base Excess POC ABG pCO2 ABG Hemoglobin ABG Oxyhemoglobin ABG Sodium ABG Chloride ABG Glucose Oxyhemoglobin Sodium 146 H Potassium Chloride 108.6 H Carbon Dioxide BUN 30 H Creatinine 0.7 L Glucose 121 H POC Glucose 132 H Lactic Acid Calcium Phosphorus Magnesium AST ALT Lactate Dehydrogenase Total Bilirubin Direct Bilirubin CK-MB (CK-2) C-Reactive Protein NT-Pro-B Natriuret Pep Total Protein Albumin Arterial Blood Glucose Urine WBC (Auto) Urine Creatinine Digoxin 12/04/19 12/04/19 12/05/19 13:26 18:43 00:19 WBC RBC Hgb Hct MCHC RDW MCV MCH Lymph % (Auto) [place] % (Auto) [place] # Eos # Lymph # (Auto) [place] # (Auto) Eos # (Auto) Seg Neutrophils % Seg Neuts % (Manual) Baso # (Auto) Lymphocytes % (Manual) Monocytes % (Manual) Eosinophils % (Manual) Basophils % (Manual) Seg Neutrophils # Seg Neutrophils # Man Lymphocytes # (Manual) Monocytes # (Manual) Eosinophils # (Manual) Nucleated RBC % Basophils # (Manual) PT INR APTT Heparin Anti-Xa Level ABG pH POC ABG pO2 ABG pO2 ABG HCO3 ABG O2 Saturation ABG Base Excess POC ABG pCO2 ABG Hemoglobin ABG Oxyhemoglobin ABG Sodium ABG Chloride ABG Glucose Oxyhemoglobin Sodium Potassium Chloride Carbon Dioxide BUN Creatinine Glucose POC Glucose 185 H 156 H 150 H Lactic Acid Calcium Phosphorus Magnesium AST ALT Lactate Dehydrogenase Total Bilirubin Direct Bilirubin CK-MB (CK-2) C-Reactive Protein NT-Pro-B Natriuret Pep Total Protein Albumin Arterial Blood Glucose Urine WBC (Auto) Urine Creatinine Digoxin 12/05/19 12/05/19 12/05/19 03:37 03:37 05:14 WBC 16.3 H RBC Hgb 11.4 L Hct MCHC RDW 15.6 H MCV MCH Lymph % (Auto) 9.9 L [place] % (Auto) 9.7 H [place] # 1.6 H Eos # Lymph # (Auto) [place] # (Auto) Eos # (Auto) Seg Neutrophils % 78.0 H Seg Neuts % (Manual) Baso # (Auto) Lymphocytes % (Manual) Monocytes % (Manual) Eosinophils % (Manual) Basophils % (Manual) Seg Neutrophils # 12.7 H Seg Neutrophils # Man Lymphocytes # (Manual) Monocytes # (Manual) Eosinophils # (Manual) Nucleated RBC % Basophils # (Manual) PT INR APTT Heparin Anti-Xa Level ABG pH POC ABG pO2 ABG pO2 ABG HCO3 ABG O2 Saturation ABG Base Excess POC ABG pCO2 ABG Hemoglobin ABG Oxyhemoglobin ABG Sodium ABG Chloride ABG Glucose Oxyhemoglobin Sodium 146 H Potassium Chloride 107.2 H Carbon Dioxide BUN 27 H Creatinine 0.7 L Glucose 171 H POC Glucose 168 H Lactic Acid Calcium Phosphorus Magnesium AST ALT Lactate Dehydrogenase Total Bilirubin Direct Bilirubin CK-MB (CK-2) C-Reactive Protein NT-Pro-B Natriuret Pep Total Protein Albumin Arterial Blood Glucose Urine WBC (Auto) Urine Creatinine Digoxin 12/05/19 12/05/19 12/05/19 12:31 18:10 23:58 WBC RBC Hgb Hct MCHC RDW MCV MCH Lymph % (Auto) [place] % (Auto) [place] # Eos # Lymph # (Auto) [place] # (Auto) Eos # (Auto) Seg Neutrophils % Seg Neuts % (Manual) Baso # (Auto) Lymphocytes % (Manual) Monocytes % (Manual) Eosinophils % (Manual) Basophils % (Manual) Seg Neutrophils # Seg Neutrophils # Man Lymphocytes # (Manual) Monocytes # (Manual) Eosinophils # (Manual) Nucleated RBC % Basophils # (Manual) PT INR APTT Heparin Anti-Xa Level ABG pH POC ABG pO2 ABG pO2 ABG HCO3 ABG O2 Saturation ABG Base Excess POC ABG pCO2 ABG Hemoglobin ABG Oxyhemoglobin ABG Sodium ABG Chloride ABG Glucose Oxyhemoglobin Sodium Potassium Chloride Carbon Dioxide BUN Creatinine Glucose POC Glucose 159 H 198 H 115 H Lactic Acid Calcium Phosphorus Magnesium AST ALT Lactate Dehydrogenase Total Bilirubin Direct Bilirubin CK-MB (CK-2) C-Reactive Protein NT-Pro-B Natriuret Pep Total Protein Albumin Arterial Blood Glucose Urine WBC (Auto) Urine Creatinine Digoxin 12/06/19 12/06/19 12/06/19 05:24 05:24 05:25 WBC 14.9 H RBC Hgb 10.8 L Hct 34.0 L MCHC RDW 15.6 H MCV MCH Lymph % (Auto) 10.7 L [place] % (Auto) 8.3 H [place] # 1.2 H Eos # Lymph # (Auto) [place] # (Auto) Eos # (Auto) Seg Neutrophils % 78.7 H Seg Neuts % (Manual) Baso # (Auto) Lymphocytes % (Manual) Monocytes % (Manual) Eosinophils % (Manual) Basophils % (Manual) Seg Neutrophils # 11.7 H Seg Neutrophils # Man Lymphocytes # (Manual) Monocytes # (Manual) Eosinophils # (Manual) Nucleated RBC % Basophils # (Manual) PT INR APTT Heparin Anti-Xa Level ABG pH POC ABG pO2 ABG pO2 ABG HCO3 ABG O2 Saturation ABG Base Excess POC ABG pCO2 ABG Hemoglobin ABG Oxyhemoglobin ABG Sodium ABG Chloride ABG Glucose Oxyhemoglobin Sodium 148 H Potassium 5.1 H Chloride 107.6 H Carbon Dioxide BUN 27 H Creatinine 0.7 L Glucose 155 H POC Glucose 157 H Lactic Acid Calcium Phosphorus Magnesium AST ALT Lactate Dehydrogenase Total Bilirubin Direct Bilirubin CK-MB (CK-2) C-Reactive Protein NT-Pro-B Natriuret Pep Total Protein Albumin Arterial Blood Glucose Urine WBC (Auto) Urine Creatinine Digoxin 12/07/19 12/07/19 12/07/19 00:13 05:34 11:33 WBC RBC Hgb Hct MCHC RDW MCV MCH Lymph % (Auto) [place] % (Auto) [place] # Eos # Lymph # (Auto) [place] # (Auto) Eos # (Auto) Seg Neutrophils % Seg Neuts % (Manual) Baso # (Auto) Lymphocytes % (Manual) Monocytes % (Manual) Eosinophils % (Manual) Basophils % (Manual) Seg Neutrophils # Seg Neutrophils # Man Lymphocytes # (Manual) Monocytes # (Manual) Eosinophils # (Manual) Nucleated RBC % Basophils # (Manual) PT INR APTT Heparin Anti-Xa Level ABG pH POC ABG pO2 ABG pO2 ABG HCO3 ABG O2 Saturation ABG Base Excess POC ABG pCO2 ABG Hemoglobin ABG Oxyhemoglobin ABG Sodium ABG Chloride ABG Glucose Oxyhemoglobin Sodium Potassium Chloride Carbon Dioxide BUN Creatinine Glucose POC Glucose 142 H 111 H 169 H Lactic Acid Calcium Phosphorus Magnesium AST ALT Lactate Dehydrogenase Total Bilirubin Direct Bilirubin CK-MB (CK-2) C-Reactive Protein NT-Pro-B Natriuret Pep Total Protein Albumin Arterial Blood Glucose Urine WBC (Auto) Urine Creatinine Digoxin 12/07/19 12/07/19 12/07/19 12:41 13:25 18:19 WBC 12.4 H RBC 3.53 L Hgb 10.2 L Hct 32.1 L MCHC RDW 15.3 H MCV MCH Lymph % (Auto) 10.6 L [place] % (Auto) 7.8 H [place] # 1.0 H Eos # Lymph # (Auto) [place] # (Auto) Eos # (Auto) Seg Neutrophils % 77.6 H Seg Neuts % (Manual) Baso # (Auto) Lymphocytes % (Manual) Monocytes % (Manual) Eosinophils % (Manual) Basophils % (Manual) Seg Neutrophils # 9.6 H Seg Neutrophils # Man Lymphocytes # (Manual) Monocytes # (Manual) Eosinophils # (Manual) Nucleated RBC % Basophils # (Manual) PT INR APTT Heparin Anti-Xa Level ABG pH POC ABG pO2 ABG pO2 ABG HCO3 ABG O2 Saturation ABG Base Excess POC ABG pCO2 ABG Hemoglobin ABG Oxyhemoglobin ABG Sodium ABG Chloride ABG Glucose Oxyhemoglobin Sodium 149 H Potassium Chloride 108.4 H Carbon Dioxide BUN 26 H Creatinine 0.6 L Glucose 149 H POC Glucose 164 H Lactic Acid Calcium Phosphorus Magnesium 2.60 H AST 121 H ALT 145 H Lactate Dehydrogenase Total Bilirubin Direct Bilirubin CK-MB (CK-2) C-Reactive Protein NT-Pro-B Natriuret Pep Total Protein Albumin 2.6 L Arterial Blood Glucose Urine WBC (Auto) Urine Creatinine Digoxin 12/07/19 12/08/19 12/08/19 22:25 00:02 03:55 WBC 13.3 H RBC 3.40 L Hgb 9.7 L Hct 30.8 L MCHC 31 L RDW 15.5 H MCV MCH Lymph % (Auto) [place] % (Auto) 8.1 H [place] # 1.1 H Eos # Lymph # (Auto) [place] # (Auto) Eos # (Auto) Seg Neutrophils % 73.0 H Seg Neuts % (Manual) Baso # (Auto) Lymphocytes % (Manual) Monocytes % (Manual) Eosinophils % (Manual) Basophils % (Manual) Seg Neutrophils # 9.7 H Seg Neutrophils # Man Lymphocytes # (Manual) Monocytes # (Manual) Eosinophils # (Manual) Nucleated RBC % Basophils # (Manual) PT INR APTT Heparin Anti-Xa Level 0.12 L ABG pH POC ABG pO2 ABG pO2 ABG HCO3 ABG O2 Saturation ABG Base Excess POC ABG pCO2 ABG Hemoglobin ABG Oxyhemoglobin ABG Sodium ABG Chloride ABG Glucose Oxyhemoglobin Sodium Potassium Chloride Carbon Dioxide BUN Creatinine Glucose POC Glucose 151 H Lactic Acid Calcium Phosphorus Magnesium AST ALT Lactate Dehydrogenase Total Bilirubin Direct Bilirubin CK-MB (CK-2) C-Reactive Protein NT-Pro-B Natriuret Pep Total Protein Albumin Arterial Blood Glucose Urine WBC (Auto) Urine Creatinine Digoxin 12/08/19 12/08/19 12/08/19 03:55 05:21 06:01 WBC RBC Hgb Hct MCHC RDW MCV MCH Lymph % (Auto) [place] % (Auto) [place] # Eos # Lymph # (Auto) [place] # (Auto) Eos # (Auto) Seg Neutrophils % Seg Neuts % (Manual) Baso # (Auto) Lymphocytes % (Manual) Monocytes % (Manual) Eosinophils % (Manual) Basophils % (Manual) Seg Neutrophils # Seg Neutrophils # Man Lymphocytes # (Manual) Monocytes # (Manual) Eosinophils # (Manual) Nucleated RBC % Basophils # (Manual) PT INR APTT Heparin Anti-Xa Level 0.20 L ABG pH POC ABG pO2 ABG pO2 ABG HCO3 ABG O2 Saturation ABG Base Excess POC ABG pCO2 ABG Hemoglobin ABG Oxyhemoglobin ABG Sodium ABG Chloride ABG Glucose Oxyhemoglobin Sodium 149 H Potassium Chloride 108.0 H Carbon Dioxide BUN 28 H Creatinine 0.6 L Glucose 144 H POC Glucose 143 H Lactic Acid Calcium Phosphorus Magnesium AST 98 H ALT 145 H Lactate Dehydrogenase Total Bilirubin Direct Bilirubin CK-MB (CK-2) C-Reactive Protein NT-Pro-B Natriuret Pep Total Protein 6.0 L Albumin 2.4 L Arterial Blood Glucose Urine WBC (Auto) Urine Creatinine Digoxin 12/08/19 12/08/19 12/08/19 12:08 18:11 23:53 WBC RBC Hgb Hct MCHC RDW MCV MCH Lymph % (Auto) [place] % (Auto) [place] # Eos # Lymph # (Auto) [place] # (Auto) Eos # (Auto) Seg Neutrophils % Seg Neuts % (Manual) Baso # (Auto) Lymphocytes % (Manual) Monocytes % (Manual) Eosinophils % (Manual) Basophils % (Manual) Seg Neutrophils # Seg Neutrophils # Man Lymphocytes # (Manual) Monocytes # (Manual) Eosinophils # (Manual) Nucleated RBC % Basophils # (Manual) PT INR APTT Heparin Anti-Xa Level ABG pH POC ABG pO2 ABG pO2 ABG HCO3 ABG O2 Saturation ABG Base Excess POC ABG pCO2 ABG Hemoglobin ABG Oxyhemoglobin ABG Sodium ABG Chloride ABG Glucose Oxyhemoglobin Sodium Potassium Chloride Carbon Dioxide BUN Creatinine Glucose POC Glucose 172 H 122 H 162 H Lactic Acid Calcium Phosphorus Magnesium AST ALT Lactate Dehydrogenase Total Bilirubin Direct Bilirubin CK-MB (CK-2) C-Reactive Protein NT-Pro-B Natriuret Pep Total Protein Albumin Arterial Blood Glucose Urine WBC (Auto) Urine Creatinine Digoxin 12/09/19 12/09/19 12/09/19 04:03 04:03 05:53 WBC RBC Hgb 9.1 L Hct 28.9 L MCHC RDW MCV MCH Lymph % (Auto) [place] % (Auto) [place] # Eos # Lymph # (Auto) [place] # (Auto) Eos # (Auto) Seg Neutrophils % Seg Neuts % (Manual) Baso # (Auto) Lymphocytes % (Manual) Monocytes % (Manual) Eosinophils % (Manual) Basophils % (Manual) Seg Neutrophils # Seg Neutrophils # Man Lymphocytes # (Manual) Monocytes # (Manual) Eosinophils # (Manual) Nucleated RBC % Basophils # (Manual) PT INR APTT Heparin Anti-Xa Level 0.15 L ABG pH POC ABG pO2 ABG pO2 ABG HCO3 ABG O2 Saturation ABG Base Excess POC ABG pCO2 ABG Hemoglobin ABG Oxyhemoglobin ABG Sodium ABG Chloride ABG Glucose Oxyhemoglobin Sodium Potassium Chloride Carbon Dioxide BUN Creatinine Glucose POC Glucose 124 H Lactic Acid Calcium Phosphorus Magnesium AST ALT Lactate Dehydrogenase Total Bilirubin Direct Bilirubin CK-MB (CK-2) C-Reactive Protein NT-Pro-B Natriuret Pep Total Protein Albumin Arterial Blood Glucose Urine WBC (Auto) Urine Creatinine Digoxin 12/09/19 12/09/19 12/10/19 09:43 12:41 00:13 WBC RBC Hgb Hct MCHC RDW MCV MCH Lymph % (Auto) [place] % (Auto) [place] # Eos # Lymph # (Auto) [place] # (Auto) Eos # (Auto) Seg Neutrophils % Seg Neuts % (Manual) Baso # (Auto) Lymphocytes % (Manual) Monocytes % (Manual) Eosinophils % (Manual) Basophils % (Manual) Seg Neutrophils # Seg Neutrophils # Man Lymphocytes # (Manual) Monocytes # (Manual) Eosinophils # (Manual) Nucleated RBC % Basophils # (Manual) PT INR APTT Heparin Anti-Xa Level ABG pH POC ABG pO2 ABG pO2 ABG HCO3 ABG O2 Saturation ABG Base Excess POC ABG pCO2 ABG Hemoglobin ABG Oxyhemoglobin ABG Sodium ABG Chloride ABG Glucose Oxyhemoglobin Sodium Potassium Chloride Carbon Dioxide BUN 25 H Creatinine 0.6 L Glucose 131 H POC Glucose 109 H 120 H Lactic Acid Calcium Phosphorus Magnesium AST ALT Lactate Dehydrogenase Total Bilirubin Direct Bilirubin CK-MB (CK-2) C-Reactive Protein NT-Pro-B Natriuret Pep Total Protein Albumin Arterial Blood Glucose Urine WBC (Auto) Urine Creatinine Digoxin 12/10/19 12/10/19 12/10/19 04:14 04:14 12:00 WBC 13.3 H RBC 3.34 L Hgb 9.6 L Hct 30.4 L MCHC RDW 15.4 H MCV MCH Lymph % (Auto) [place] % (Auto) [place] # Eos # Lymph # (Auto) [place] # (Auto) Eos # (Auto) Seg Neutrophils % Seg Neuts % (Manual) 75.0 H Baso # (Auto) Lymphocytes % (Manual) 13.0 L Monocytes % (Manual) 8.0 H Eosinophils % (Manual) Basophils % (Manual) 2.0 H Seg Neutrophils # Seg Neutrophils # Man 10.0 H Lymphocytes # (Manual) Monocytes # (Manual) 1.1 H Eosinophils # (Manual) Nucleated RBC % Basophils # (Manual) 0.3 H PT INR APTT Heparin Anti-Xa Level ABG pH POC ABG pO2 ABG pO2 ABG HCO3 ABG O2 Saturation ABG Base Excess POC ABG pCO2 ABG Hemoglobin ABG Oxyhemoglobin ABG Sodium ABG Chloride ABG Glucose Oxyhemoglobin Sodium 147 H Potassium Chloride 108.3 H Carbon Dioxide BUN 21 H Creatinine 0.6 L Glucose 104 H POC Glucose 133 H Lactic Acid Calcium Phosphorus Magnesium AST ALT Lactate Dehydrogenase Total Bilirubin Direct Bilirubin CK-MB (CK-2) C-Reactive Protein NT-Pro-B Natriuret Pep Total Protein Albumin Arterial Blood Glucose Urine WBC (Auto) Urine Creatinine Digoxin 12/10/19 12/10/19 12/11/19 18:44 21:20 00:08 WBC 14.9 H RBC 3.36 L Hgb 9.6 L Hct 30.5 L MCHC RDW 15.4 H MCV MCH Lymph % (Auto) [place] % (Auto) [place] # Eos # Lymph # (Auto) [place] # (Auto) Eos # (Auto) Seg Neutrophils % Seg Neuts % (Manual) Baso # (Auto) Lymphocytes % (Manual) Monocytes % (Manual) Eosinophils % (Manual) Basophils % (Manual) Seg Neutrophils # Seg Neutrophils # Man Lymphocytes # (Manual) Monocytes # (Manual) Eosinophils # (Manual) Nucleated RBC % Basophils # (Manual) PT INR APTT Heparin Anti-Xa Level ABG pH POC ABG pO2 ABG pO2 ABG HCO3 ABG O2 Saturation ABG Base Excess POC ABG pCO2 ABG Hemoglobin ABG Oxyhemoglobin ABG Sodium ABG Chloride ABG Glucose Oxyhemoglobin Sodium Potassium Chloride Carbon Dioxide BUN Creatinine Glucose POC Glucose 119 H 134 H Lactic Acid Calcium Phosphorus Magnesium AST ALT Lactate Dehydrogenase Total Bilirubin Direct Bilirubin CK-MB (CK-2) C-Reactive Protein NT-Pro-B Natriuret Pep Total Protein Albumin Arterial Blood Glucose Urine WBC (Auto) Urine Creatinine Digoxin 12/11/19 12/11/19 12/11/19 03:54 07:28 08:36 WBC 11.9 H RBC 3.25 L Hgb 9.6 L Hct 29.2 L MCHC RDW 15.7 H MCV MCH Lymph % (Auto) [place] % (Auto) [place] # Eos # Lymph # (Auto) [place] # (Auto) Eos # (Auto) Seg Neutrophils % Seg Neuts % (Manual) Baso # (Auto) Lymphocytes % (Manual) Monocytes % (Manual) Eosinophils % (Manual) Basophils % (Manual) Seg Neutrophils # Seg Neutrophils # Man Lymphocytes # (Manual) Monocytes # (Manual) Eosinophils # (Manual) Nucleated RBC % Basophils # (Manual) PT INR APTT Heparin Anti-Xa Level 0.10 L 0.16 L ABG pH POC ABG pO2 ABG pO2 ABG HCO3 ABG O2 Saturation ABG Base Excess POC ABG pCO2 ABG Hemoglobin ABG Oxyhemoglobin ABG Sodium ABG Chloride ABG Glucose Oxyhemoglobin Sodium Potassium Chloride Carbon Dioxide BUN Creatinine Glucose POC Glucose Lactic Acid Calcium Phosphorus Magnesium AST ALT Lactate Dehydrogenase Total Bilirubin Direct Bilirubin CK-MB (CK-2) C-Reactive Protein NT-Pro-B Natriuret Pep Total Protein Albumin Arterial Blood Glucose Urine WBC (Auto) Urine Creatinine Digoxin 12/11/19 12/11/19 12/11/19 08:36 11:45 17:15 WBC RBC Hgb Hct MCHC RDW MCV MCH Lymph % (Auto) [place] % (Auto) [place] # Eos # Lymph # (Auto) [place] # (Auto) Eos # (Auto) Seg Neutrophils % Seg Neuts % (Manual) Baso # (Auto) Lymphocytes % (Manual) Monocytes % (Manual) Eosinophils % (Manual) Basophils % (Manual) Seg Neutrophils # Seg Neutrophils # Man Lymphocytes # (Manual) Monocytes # (Manual) Eosinophils # (Manual) Nucleated RBC % Basophils # (Manual) PT INR APTT Heparin Anti-Xa Level ABG pH POC ABG pO2 ABG pO2 ABG HCO3 ABG O2 Saturation ABG Base Excess POC ABG pCO2 ABG Hemoglobin ABG Oxyhemoglobin ABG Sodium ABG Chloride ABG Glucose Oxyhemoglobin Sodium Potassium Chloride Carbon Dioxide BUN Creatinine 0.5 L Glucose 128 H POC Glucose 136 H 109 H Lactic Acid Calcium Phosphorus Magnesium AST ALT Lactate Dehydrogenase Total Bilirubin Direct Bilirubin CK-MB (CK-2) C-Reactive Protein NT-Pro-B Natriuret Pep Total Protein Albumin Arterial Blood Glucose Urine WBC (Auto) Urine Creatinine Digoxin 12/12/19 12/12/19 12/12/19 00:03 05:53 05:53 WBC RBC Hgb 8.8 L Hct 27.6 L MCHC RDW MCV MCH Lymph % (Auto) [place] % (Auto) [place] # Eos # Lymph # (Auto) [place] # (Auto) Eos # (Auto) Seg Neutrophils % Seg Neuts % (Manual) Baso # (Auto) Lymphocytes % (Manual) Monocytes % (Manual) Eosinophils % (Manual) Basophils % (Manual) Seg Neutrophils # Seg Neutrophils # Man Lymphocytes # (Manual) Monocytes # (Manual) Eosinophils # (Manual) Nucleated RBC % Basophils # (Manual) PT INR APTT Heparin Anti-Xa Level 0.22 L ABG pH POC ABG pO2 ABG pO2 ABG HCO3 ABG O2 Saturation ABG Base Excess POC ABG pCO2 ABG Hemoglobin ABG Oxyhemoglobin ABG Sodium ABG Chloride ABG Glucose Oxyhemoglobin Sodium Potassium Chloride Carbon Dioxide BUN Creatinine Glucose POC Glucose 116 H Lactic Acid Calcium Phosphorus Magnesium AST ALT Lactate Dehydrogenase Total Bilirubin Direct Bilirubin CK-MB (CK-2) C-Reactive Protein NT-Pro-B Natriuret Pep Total Protein Albumin Arterial Blood Glucose Urine WBC (Auto) Urine Creatinine Digoxin 12/12/19 12/12/19 12/12/19 09:38 12:18 17:44 WBC RBC Hgb Hct MCHC RDW MCV MCH Lymph % (Auto) [place] % (Auto) [place] # Eos # Lymph # (Auto) [place] # (Auto) Eos # (Auto) Seg Neutrophils % Seg Neuts % (Manual) Baso # (Auto) Lymphocytes % (Manual) Monocytes % (Manual) Eosinophils % (Manual) Basophils % (Manual) Seg Neutrophils # Seg Neutrophils # Man Lymphocytes # (Manual) Monocytes # (Manual) Eosinophils # (Manual) Nucleated RBC % Basophils # (Manual) PT INR APTT Heparin Anti-Xa Level ABG pH POC ABG pO2 ABG pO2 ABG HCO3 ABG O2 Saturation ABG Base Excess POC ABG pCO2 ABG Hemoglobin ABG Oxyhemoglobin ABG Sodium ABG Chloride ABG Glucose Oxyhemoglobin Sodium Potassium Chloride Carbon Dioxide BUN Creatinine Glucose POC Glucose 115 H 146 H 146 H Lactic Acid Calcium Phosphorus Magnesium AST ALT Lactate Dehydrogenase Total Bilirubin Direct Bilirubin CK-MB (CK-2) C-Reactive Protein NT-Pro-B Natriuret Pep Total Protein Albumin Arterial Blood Glucose Urine WBC (Auto) Urine Creatinine Digoxin 12/12/19 12/13/19 12/13/19 23:33 05:32 05:32 WBC 13.1 H RBC 3.27 L Hgb 9.5 L Hct 29.3 L MCHC RDW 15.6 H MCV MCH Lymph % (Auto) [place] % (Auto) [place] # Eos # Lymph # (Auto) [place] # (Auto) Eos # (Auto) Seg Neutrophils % Seg Neuts % (Manual) 74.0 H Baso # (Auto) Lymphocytes % (Manual) 8.0 L Monocytes % (Manual) 9.0 H Eosinophils % (Manual) 5.0 H Basophils % (Manual) Seg Neutrophils # Seg Neutrophils # Man 9.7 H Lymphocytes # (Manual) 1.0 L Monocytes # (Manual) 1.2 H Eosinophils # (Manual) 0.7 H Nucleated RBC % Basophils # (Manual) PT INR APTT Heparin Anti-Xa Level 0.20 L ABG pH POC ABG pO2 ABG pO2 ABG HCO3 ABG O2 Saturation ABG Base Excess POC ABG pCO2 ABG Hemoglobin ABG Oxyhemoglobin ABG Sodium ABG Chloride ABG Glucose Oxyhemoglobin Sodium Potassium Chloride Carbon Dioxide BUN Creatinine Glucose POC Glucose 126 H Lactic Acid Calcium Phosphorus Magnesium AST ALT Lactate Dehydrogenase Total Bilirubin Direct Bilirubin CK-MB (CK-2) C-Reactive Protein NT-Pro-B Natriuret Pep Total Protein Albumin Arterial Blood Glucose Urine WBC (Auto) Urine Creatinine Digoxin 12/13/19 12/13/19 12/13/19 05:32 05:46 11:57 WBC RBC Hgb Hct MCHC RDW MCV MCH Lymph % (Auto) [place] % (Auto) [place] # Eos # Lymph # (Auto) [place] # (Auto) Eos # (Auto) Seg Neutrophils % Seg Neuts % (Manual) Baso # (Auto) Lymphocytes % (Manual) Monocytes % (Manual) Eosinophils % (Manual) Basophils % (Manual) Seg Neutrophils # Seg Neutrophils # Man Lymphocytes # (Manual) Monocytes # (Manual) Eosinophils # (Manual) Nucleated RBC % Basophils # (Manual) PT INR APTT Heparin Anti-Xa Level ABG pH POC ABG pO2 ABG pO2 ABG HCO3 ABG O2 Saturation ABG Base Excess POC ABG pCO2 ABG Hemoglobin ABG Oxyhemoglobin ABG Sodium ABG Chloride ABG Glucose Oxyhemoglobin Sodium Potassium Chloride Carbon Dioxide 31 H BUN Creatinine 0.6 L Glucose 114 H POC Glucose 118 H 133 H Lactic Acid Calcium Phosphorus Magnesium AST ALT Lactate Dehydrogenase Total Bilirubin Direct Bilirubin CK-MB (CK-2) C-Reactive Protein NT-Pro-B Natriuret Pep Total Protein Albumin Arterial Blood Glucose Urine WBC (Auto) Urine Creatinine Digoxin 12/13/19 12/13/19 12/14/19 17:44 23:46 05:32 WBC RBC Hgb Hct MCHC RDW MCV MCH Lymph % (Auto) [place] % (Auto) [place] # Eos # Lymph # (Auto) [place] # (Auto) Eos # (Auto) Seg Neutrophils % Seg Neuts % (Manual) Baso # (Auto) Lymphocytes % (Manual) Monocytes % (Manual) Eosinophils % (Manual) Basophils % (Manual) Seg Neutrophils # Seg Neutrophils # Man Lymphocytes # (Manual) Monocytes # (Manual) Eosinophils # (Manual) Nucleated RBC % Basophils # (Manual) PT INR APTT Heparin Anti-Xa Level ABG pH POC ABG pO2 ABG pO2 ABG HCO3 ABG O2 Saturation ABG Base Excess POC ABG pCO2 ABG Hemoglobin ABG Oxyhemoglobin ABG Sodium ABG Chloride ABG Glucose Oxyhemoglobin Sodium Potassium Chloride Carbon Dioxide BUN Creatinine Glucose POC Glucose 161 H 126 H 139 H Lactic Acid Calcium Phosphorus Magnesium AST ALT Lactate Dehydrogenase Total Bilirubin Direct Bilirubin CK-MB (CK-2) C-Reactive Protein NT-Pro-B Natriuret Pep Total Protein Albumin Arterial Blood Glucose Urine WBC (Auto) Urine Creatinine Digoxin 12/14/19 12/14/19 12/14/19 06:03 06:03 09:37 WBC RBC Hgb 9.6 L Hct 30.4 L MCHC RDW MCV MCH Lymph % (Auto) [place] % (Auto) [place] # Eos # Lymph # (Auto) [place] # (Auto) Eos # (Auto) Seg Neutrophils % Seg Neuts % (Manual) Baso # (Auto) Lymphocytes % (Manual) Monocytes % (Manual) Eosinophils % (Manual) Basophils % (Manual) Seg Neutrophils # Seg Neutrophils # Man Lymphocytes # (Manual) Monocytes # (Manual) Eosinophils # (Manual) Nucleated RBC % Basophils # (Manual) PT INR APTT Heparin Anti-Xa Level 0.24 L ABG pH POC ABG pO2 ABG pO2 ABG HCO3 ABG O2 Saturation ABG Base Excess POC ABG pCO2 ABG Hemoglobin ABG Oxyhemoglobin ABG Sodium ABG Chloride ABG Glucose Oxyhemoglobin Sodium Potassium Chloride Carbon Dioxide BUN Creatinine 0.6 L Glucose 162 H POC Glucose Lactic Acid Calcium Phosphorus Magnesium AST 71 H ALT 118 H Lactate Dehydrogenase Total Bilirubin Direct Bilirubin CK-MB (CK-2) C-Reactive Protein NT-Pro-B Natriuret Pep Total Protein 6.2 L Albumin 2.3 L Arterial Blood Glucose Urine WBC (Auto) Urine Creatinine Digoxin 12/14/19 12/14/19 12/15/19 12:06 18:18 00:19 WBC RBC Hgb Hct MCHC RDW MCV MCH Lymph % (Auto) [place] % (Auto) [place] # Eos # Lymph # (Auto) [place] # (Auto) Eos # (Auto) Seg Neutrophils % Seg Neuts % (Manual) Baso # (Auto) Lymphocytes % (Manual) Monocytes % (Manual) Eosinophils % (Manual) Basophils % (Manual) Seg Neutrophils # Seg Neutrophils # Man Lymphocytes # (Manual) Monocytes # (Manual) Eosinophils # (Manual) Nucleated RBC % Basophils # (Manual) PT INR APTT Heparin Anti-Xa Level ABG pH POC ABG pO2 ABG pO2 ABG HCO3 ABG O2 Saturation ABG Base Excess POC ABG pCO2 ABG Hemoglobin ABG Oxyhemoglobin ABG Sodium ABG Chloride ABG Glucose Oxyhemoglobin Sodium Potassium Chloride Carbon Dioxide BUN Creatinine Glucose POC Glucose 147 H 166 H 123 H Lactic Acid Calcium Phosphorus Magnesium AST ALT Lactate Dehydrogenase Total Bilirubin Direct Bilirubin CK-MB (CK-2) C-Reactive Protein NT-Pro-B Natriuret Pep Total Protein Albumin Arterial Blood Glucose Urine WBC (Auto) Urine Creatinine Digoxin 12/15/19 12/15/19 12/15/19 05:28 05:29 05:29 WBC 14.9 H RBC 3.19 L Hgb 9.1 L Hct 28.7 L MCHC RDW 16.0 H MCV MCH Lymph % (Auto) [place] % (Auto) [place] # Eos # Lymph # (Auto) [place] # (Auto) Eos # (Auto) Seg Neutrophils % Seg Neuts % (Manual) Baso # (Auto) Lymphocytes % (Manual) Monocytes % (Manual) Eosinophils % (Manual) Basophils % (Manual) Seg Neutrophils # Seg Neutrophils # Man Lymphocytes # (Manual) Monocytes # (Manual) Eosinophils # (Manual) Nucleated RBC % Basophils # (Manual) PT INR APTT Heparin Anti-Xa Level 0.19 L ABG pH POC ABG pO2 ABG pO2 ABG HCO3 ABG O2 Saturation ABG Base Excess POC ABG pCO2 ABG Hemoglobin ABG Oxyhemoglobin ABG Sodium ABG Chloride ABG Glucose Oxyhemoglobin Sodium Potassium Chloride Carbon Dioxide BUN Creatinine 0.6 L Glucose 110 H POC Glucose Lactic Acid Calcium Phosphorus Magnesium AST ALT Lactate Dehydrogenase Total Bilirubin Direct Bilirubin CK-MB (CK-2) C-Reactive Protein NT-Pro-B Natriuret Pep Total Protein Albumin Arterial Blood Glucose Urine WBC (Auto) Urine Creatinine Digoxin 12/15/19 12/15/19 12/15/19 05:53 11:50 17:26 WBC RBC Hgb Hct MCHC RDW MCV MCH Lymph % (Auto) [place] % (Auto) [place] # Eos # Lymph # (Auto) [place] # (Auto) Eos # (Auto) Seg Neutrophils % Seg Neuts % (Manual) Baso # (Auto) Lymphocytes % (Manual) Monocytes % (Manual) Eosinophils % (Manual) Basophils % (Manual) Seg Neutrophils # Seg Neutrophils # Man Lymphocytes # (Manual) Monocytes # (Manual) Eosinophils # (Manual) Nucleated RBC % Basophils # (Manual) PT INR APTT Heparin Anti-Xa Level ABG pH POC ABG pO2 ABG pO2 ABG HCO3 ABG O2 Saturation ABG Base Excess POC ABG pCO2 ABG Hemoglobin ABG Oxyhemoglobin ABG Sodium ABG Chloride ABG Glucose Oxyhemoglobin Sodium Potassium Chloride Carbon Dioxide BUN Creatinine Glucose POC Glucose 119 H 132 H 128 H Lactic Acid Calcium Phosphorus Magnesium AST ALT Lactate Dehydrogenase Total Bilirubin Direct Bilirubin CK-MB (CK-2) C-Reactive Protein NT-Pro-B Natriuret Pep Total Protein Albumin Arterial Blood Glucose Urine WBC (Auto) Urine Creatinine Digoxin 12/15/19 12/16/19 12/16/19 23:11 05:30 05:46 WBC RBC Hgb 8.8 L Hct 27.9 L MCHC RDW MCV MCH Lymph % (Auto) [place] % (Auto) [place] # Eos # Lymph # (Auto) [place] # (Auto) Eos # (Auto) Seg Neutrophils % Seg Neuts % (Manual) Baso # (Auto) Lymphocytes % (Manual) Monocytes % (Manual) Eosinophils % (Manual) Basophils % (Manual) Seg Neutrophils # Seg Neutrophils # Man Lymphocytes # (Manual) Monocytes # (Manual) Eosinophils # (Manual) Nucleated RBC % Basophils # (Manual) PT INR APTT Heparin Anti-Xa Level ABG pH POC ABG pO2 ABG pO2 ABG HCO3 ABG O2 Saturation ABG Base Excess POC ABG pCO2 ABG Hemoglobin ABG Oxyhemoglobin ABG Sodium ABG Chloride ABG Glucose Oxyhemoglobin Sodium Potassium Chloride Carbon Dioxide BUN Creatinine Glucose POC Glucose 150 H 134 H Lactic Acid Calcium Phosphorus Magnesium AST ALT Lactate Dehydrogenase Total Bilirubin Direct Bilirubin CK-MB (CK-2) C-Reactive Protein NT-Pro-B Natriuret Pep Total Protein Albumin Arterial Blood Glucose Urine WBC (Auto) Urine Creatinine Digoxin 12/16/19 12/16/19 12/16/19 05:46 05:46 11:44 WBC RBC Hgb Hct MCHC RDW MCV MCH Lymph % (Auto) [place] % (Auto) [place] # Eos # Lymph # (Auto) [place] # (Auto) Eos # (Auto) Seg Neutrophils % Seg Neuts % (Manual) Baso # (Auto) Lymphocytes % (Manual) Monocytes % (Manual) Eosinophils % (Manual) Basophils % (Manual) Seg Neutrophils # Seg Neutrophils # Man Lymphocytes # (Manual) Monocytes # (Manual) Eosinophils # (Manual) Nucleated RBC % Basophils # (Manual) PT INR APTT Heparin Anti-Xa Level 0.20 L ABG pH POC ABG pO2 ABG pO2 ABG HCO3 ABG O2 Saturation ABG Base Excess POC ABG pCO2 ABG Hemoglobin ABG Oxyhemoglobin ABG Sodium ABG Chloride ABG Glucose Oxyhemoglobin Sodium Potassium Chloride Carbon Dioxide 31 H BUN Creatinine 0.5 L Glucose 147 H POC Glucose 164 H Lactic Acid Calcium Phosphorus Magnesium AST ALT Lactate Dehydrogenase Total Bilirubin Direct Bilirubin CK-MB (CK-2) C-Reactive Protein NT-Pro-B Natriuret Pep Total Protein Albumin Arterial Blood Glucose Urine WBC (Auto) Urine Creatinine Digoxin 12/16/19 12/16/19 12/17/19 17:17 23:49 05:30 WBC 13.9 H RBC 3.27 L Hgb 9.4 L Hct 29.2 L MCHC RDW 16.0 H MCV MCH Lymph % (Auto) [place] % (Auto) 8.8 H [place] # Eos # Lymph # (Auto) [place] # (Auto) 1.2 H Eos # (Auto) 0.5 H Seg Neutrophils % 70.5 H Seg Neuts % (Manual) Baso # (Auto) 0.2 H Lymphocytes % (Manual) Monocytes % (Manual) Eosinophils % (Manual) Basophils % (Manual) Seg Neutrophils # 9.8 H Seg Neutrophils # Man Lymphocytes # (Manual) Monocytes # (Manual) Eosinophils # (Manual) Nucleated RBC % Basophils # (Manual) PT INR APTT Heparin Anti-Xa Level ABG pH POC ABG pO2 ABG pO2 ABG HCO3 ABG O2 Saturation ABG Base Excess POC ABG pCO2 ABG Hemoglobin ABG Oxyhemoglobin ABG Sodium ABG Chloride ABG Glucose Oxyhemoglobin Sodium Potassium Chloride Carbon Dioxide BUN Creatinine Glucose POC Glucose 162 H 144 H Lactic Acid Calcium Phosphorus Magnesium AST ALT Lactate Dehydrogenase Total Bilirubin Direct Bilirubin CK-MB (CK-2) C-Reactive Protein NT-Pro-B Natriuret Pep Total Protein Albumin Arterial Blood Glucose Urine WBC (Auto) Urine Creatinine Digoxin 12/17/19 12/17/19 12/17/19 05:30 06:06 11:50 WBC RBC Hgb Hct MCHC RDW MCV MCH Lymph % (Auto) [place] % (Auto) [place] # Eos # Lymph # (Auto) [place] # (Auto) Eos # (Auto) Seg Neutrophils % Seg Neuts % (Manual) Baso # (Auto) Lymphocytes % (Manual) Monocytes % (Manual) Eosinophils % (Manual) Basophils % (Manual) Seg Neutrophils # Seg Neutrophils # Man Lymphocytes # (Manual) Monocytes # (Manual) Eosinophils # (Manual) Nucleated RBC % Basophils # (Manual) PT INR APTT Heparin Anti-Xa Level ABG pH POC ABG pO2 ABG pO2 ABG HCO3 ABG O2 Saturation ABG Base Excess POC ABG pCO2 ABG Hemoglobin ABG Oxyhemoglobin ABG Sodium ABG Chloride ABG Glucose Oxyhemoglobin Sodium Potassium Chloride 97.4 L Carbon Dioxide 32 H BUN Creatinine 0.5 L Glucose 135 H POC Glucose 151 H 140 H Lactic Acid Calcium Phosphorus Magnesium AST ALT Lactate Dehydrogenase Total Bilirubin Direct Bilirubin CK-MB (CK-2) C-Reactive Protein NT-Pro-B Natriuret Pep Total Protein Albumin Arterial Blood Glucose Urine WBC (Auto) Urine Creatinine Digoxin 12/17/19 12/17/19 12/18/19 17:50 23:46 05:17 WBC RBC Hgb 8.8 L Hct 28.0 L MCHC RDW MCV MCH Lymph % (Auto) [place] % (Auto) [place] # Eos # Lymph # (Auto) [place] # (Auto) Eos # (Auto) Seg Neutrophils % Seg Neuts % (Manual) Baso # (Auto) Lymphocytes % (Manual) Monocytes % (Manual) Eosinophils % (Manual) Basophils % (Manual) Seg Neutrophils # Seg Neutrophils # Man Lymphocytes # (Manual) Monocytes # (Manual) Eosinophils # (Manual) Nucleated RBC % Basophils # (Manual) PT INR APTT Heparin Anti-Xa Level ABG pH POC ABG pO2 ABG pO2 ABG HCO3 ABG O2 Saturation ABG Base Excess POC ABG pCO2 ABG Hemoglobin ABG Oxyhemoglobin ABG Sodium ABG Chloride ABG Glucose Oxyhemoglobin Sodium Potassium Chloride Carbon Dioxide BUN Creatinine Glucose POC Glucose 158 H 150 H Lactic Acid Calcium Phosphorus Magnesium AST ALT Lactate Dehydrogenase Total Bilirubin Direct Bilirubin CK-MB (CK-2) C-Reactive Protein NT-Pro-B Natriuret Pep Total Protein Albumin Arterial Blood Glucose Urine WBC (Auto) Urine Creatinine Digoxin 12/18/19 12/18/19 12/18/19 05:17 05:49 11:12 WBC RBC Hgb Hct MCHC RDW MCV MCH Lymph % (Auto) [place] % (Auto) [place] # Eos # Lymph # (Auto) [place] # (Auto) Eos # (Auto) Seg Neutrophils % Seg Neuts % (Manual) Baso # (Auto) Lymphocytes % (Manual) Monocytes % (Manual) Eosinophils % (Manual) Basophils % (Manual) Seg Neutrophils # Seg Neutrophils # Man Lymphocytes # (Manual) Monocytes # (Manual) Eosinophils # (Manual) Nucleated RBC % Basophils # (Manual) PT INR APTT Heparin Anti-Xa Level 0.16 L ABG pH POC ABG pO2 ABG pO2 ABG HCO3 ABG O2 Saturation ABG Base Excess POC ABG pCO2 ABG Hemoglobin ABG Oxyhemoglobin ABG Sodium ABG Chloride ABG Glucose Oxyhemoglobin Sodium Potassium Chloride Carbon Dioxide BUN Creatinine Glucose POC Glucose 127 H 191 H Lactic Acid Calcium Phosphorus Magnesium AST ALT Lactate Dehydrogenase Total Bilirubin Direct Bilirubin CK-MB (CK-2) C-Reactive Protein NT-Pro-B Natriuret Pep Total Protein Albumin Arterial Blood Glucose Urine WBC (Auto) Urine Creatinine Digoxin 12/18/19 12/18/19 12/19/19 17:03 20:16 00:08 WBC RBC Hgb Hct MCHC RDW MCV MCH Lymph % (Auto) [place] % (Auto) [place] # Eos # Lymph # (Auto) [place] # (Auto) Eos # (Auto) Seg Neutrophils % Seg Neuts % (Manual) Baso # (Auto) Lymphocytes % (Manual) Monocytes % (Manual) Eosinophils % (Manual) Basophils % (Manual) Seg Neutrophils # Seg Neutrophils # Man Lymphocytes # (Manual) Monocytes # (Manual) Eosinophils # (Manual) Nucleated RBC % Basophils # (Manual) PT INR APTT Heparin Anti-Xa Level ABG pH POC ABG pO2 ABG pO2 ABG HCO3 ABG O2 Saturation ABG Base Excess POC ABG pCO2 ABG Hemoglobin ABG Oxyhemoglobin ABG Sodium ABG Chloride ABG Glucose Oxyhemoglobin Sodium Potassium Chloride Carbon Dioxide BUN Creatinine Glucose POC Glucose 133 H 128 H 129 H Lactic Acid Calcium Phosphorus Magnesium AST ALT Lactate Dehydrogenase Total Bilirubin Direct Bilirubin CK-MB (CK-2) C-Reactive Protein NT-Pro-B Natriuret Pep Total Protein Albumin Arterial Blood Glucose Urine WBC (Auto) Urine Creatinine Digoxin 12/19/19 12/19/19 12/19/19 04:45 04:45 05:35 WBC RBC Hgb Hct MCHC RDW MCV MCH Lymph % (Auto) [place] % (Auto) [place] # Eos # Lymph # (Auto) [place] # (Auto) Eos # (Auto) Seg Neutrophils % Seg Neuts % (Manual) Baso # (Auto) Lymphocytes % (Manual) Monocytes % (Manual) Eosinophils % (Manual) Basophils % (Manual) Seg Neutrophils # Seg Neutrophils # Man Lymphocytes # (Manual) Monocytes # (Manual) Eosinophils # (Manual) Nucleated RBC % Basophils # (Manual) PT INR APTT Heparin Anti-Xa Level 0.17 L ABG pH POC ABG pO2 ABG pO2 ABG HCO3 ABG O2 Saturation ABG Base Excess POC ABG pCO2 ABG Hemoglobin ABG Oxyhemoglobin ABG Sodium ABG Chloride ABG Glucose Oxyhemoglobin Sodium Potassium Chloride Carbon Dioxide BUN Creatinine Glucose POC Glucose 120 H Lactic Acid Calcium Phosphorus Magnesium AST ALT Lactate Dehydrogenase 228 H Total Bilirubin Direct Bilirubin CK-MB (CK-2) C-Reactive Protein NT-Pro-B Natriuret Pep Total Protein Albumin Arterial Blood Glucose Urine WBC (Auto) Urine Creatinine Digoxin 12/19/19 12/19/19 12/19/19 09:20 11:32 11:32 WBC 14.6 H RBC 3.08 L Hgb 9.0 L Hct 26.8 L MCHC RDW 15.9 H MCV MCH Lymph % (Auto) [place] % (Auto) [place] # Eos # Lymph # (Auto) [place] # (Auto) Eos # (Auto) Seg Neutrophils % Seg Neuts % (Manual) 82.0 H Baso # (Auto) Lymphocytes % (Manual) 10.0 L Monocytes % (Manual) Eosinophils % (Manual) Basophils % (Manual) Seg Neutrophils # Seg Neutrophils # Man 12.0 H Lymphocytes # (Manual) Monocytes # (Manual) 0.9 H Eosinophils # (Manual) Nucleated RBC % 1.0 H Basophils # (Manual) PT INR APTT Heparin Anti-Xa Level ABG pH 7.451 H POC ABG pO2 ABG pO2 62.6 L ABG HCO3 33.2 H ABG O2 Saturation 93.8 L ABG Base Excess 8.3 H POC ABG pCO2 ABG Hemoglobin 8.3 L ABG Oxyhemoglobin ABG Sodium ABG Chloride ABG Glucose Oxyhemoglobin 91.9 L Sodium Potassium Chloride 95.0 L Carbon Dioxide 33 H BUN 22 H Creatinine 0.6 L Glucose 150 H POC Glucose Lactic Acid Calcium Phosphorus Magnesium AST ALT Lactate Dehydrogenase Total Bilirubin Direct Bilirubin CK-MB (CK-2) C-Reactive Protein NT-Pro-B Natriuret Pep Total Protein 6.2 L Albumin 2.4 L Arterial Blood Glucose Urine WBC (Auto) Urine Creatinine Digoxin 12/19/19 12/19/19 12/20/19 11:56 18:17 00:09 WBC RBC Hgb Hct MCHC RDW MCV MCH Lymph % (Auto) [place] % (Auto) [place] # Eos # Lymph # (Auto) [place] # (Auto) Eos # (Auto) Seg Neutrophils % Seg Neuts % (Manual) Baso # (Auto) Lymphocytes % (Manual) Monocytes % (Manual) Eosinophils % (Manual) Basophils % (Manual) Seg Neutrophils # Seg Neutrophils # Man Lymphocytes # (Manual) Monocytes # (Manual) Eosinophils # (Manual) Nucleated RBC % Basophils # (Manual) PT INR APTT Heparin Anti-Xa Level ABG pH POC ABG pO2 ABG pO2 ABG HCO3 ABG O2 Saturation ABG Base Excess POC ABG pCO2 ABG Hemoglobin ABG Oxyhemoglobin ABG Sodium ABG Chloride ABG Glucose Oxyhemoglobin Sodium Potassium Chloride Carbon Dioxide BUN Creatinine Glucose POC Glucose 156 H 156 H 155 H Lactic Acid Calcium Phosphorus Magnesium AST ALT Lactate Dehydrogenase Total Bilirubin Direct Bilirubin CK-MB (CK-2) C-Reactive Protein NT-Pro-B Natriuret Pep Total Protein Albumin Arterial Blood Glucose Urine WBC (Auto) Urine Creatinine Digoxin 12/20/19 12/20/19 12/20/19 05:26 06:02 18:17 WBC RBC Hgb Hct MCHC RDW MCV MCH Lymph % (Auto) [place] % (Auto) [place] # Eos # Lymph # (Auto) [place] # (Auto) Eos # (Auto) Seg Neutrophils % Seg Neuts % (Manual) Baso # (Auto) Lymphocytes % (Manual) Monocytes % (Manual) Eosinophils % (Manual) Basophils % (Manual) Seg Neutrophils # Seg Neutrophils # Man Lymphocytes # (Manual) Monocytes # (Manual) Eosinophils # (Manual) Nucleated RBC % Basophils # (Manual) PT INR APTT Heparin Anti-Xa Level 0.19 L ABG pH POC ABG pO2 ABG pO2 ABG HCO3 ABG O2 Saturation ABG Base Excess POC ABG pCO2 ABG Hemoglobin ABG Oxyhemoglobin ABG Sodium ABG Chloride ABG Glucose Oxyhemoglobin Sodium Potassium Chloride Carbon Dioxide BUN Creatinine Glucose POC Glucose 137 H 128 H Lactic Acid Calcium Phosphorus Magnesium AST ALT Lactate Dehydrogenase Total Bilirubin Direct Bilirubin CK-MB (CK-2) C-Reactive Protein NT-Pro-B Natriuret Pep Total Protein Albumin Arterial Blood Glucose Urine WBC (Auto) Urine Creatinine Digoxin 12/20/19 12/21/19 12/21/19 23:34 05:31 05:31 WBC 12.7 H RBC 3.09 L Hgb 8.9 L Hct 27.4 L MCHC RDW 15.8 H MCV MCH Lymph % (Auto) 12.1 L [place] % (Auto) 7.8 H [place] # Eos # Lymph # (Auto) [place] # (Auto) 1.0 H Eos # (Auto) Seg Neutrophils % 77.1 H Seg Neuts % (Manual) Baso # (Auto) Lymphocytes % (Manual) Monocytes % (Manual) Eosinophils % (Manual) Basophils % (Manual) Seg Neutrophils # 9.8 H Seg Neutrophils # Man Lymphocytes # (Manual) Monocytes # (Manual) Eosinophils # (Manual) Nucleated RBC % Basophils # (Manual) PT INR APTT Heparin Anti-Xa Level ABG pH POC ABG pO2 ABG pO2 ABG HCO3 ABG O2 Saturation ABG Base Excess POC ABG pCO2 ABG Hemoglobin ABG Oxyhemoglobin ABG Sodium ABG Chloride ABG Glucose Oxyhemoglobin Sodium Potassium Chloride 96.9 L Carbon Dioxide 37 H BUN 27 H Creatinine 0.7 L Glucose 140 H POC Glucose 145 H Lactic Acid Calcium Phosphorus Magnesium AST ALT Lactate Dehydrogenase Total Bilirubin Direct Bilirubin CK-MB (CK-2) C-Reactive Protein NT-Pro-B Natriuret Pep Total Protein Albumin Arterial Blood Glucose Urine WBC (Auto) Urine Creatinine Digoxin 12/21/19 12/21/19 12/21/19 05:38 10:13 11:51 WBC RBC Hgb Hct MCHC RDW MCV MCH Lymph % (Auto) [place] % (Auto) [place] # Eos # Lymph # (Auto) [place] # (Auto) Eos # (Auto) Seg Neutrophils % Seg Neuts % (Manual) Baso # (Auto) Lymphocytes % (Manual) Monocytes % (Manual) Eosinophils % (Manual) Basophils % (Manual) Seg Neutrophils # Seg Neutrophils # Man Lymphocytes # (Manual) Monocytes # (Manual) Eosinophils # (Manual) Nucleated RBC % Basophils # (Manual) PT INR APTT 23.9 L Heparin Anti-Xa Level < 0.10 L ABG pH POC ABG pO2 ABG pO2 ABG HCO3 ABG O2 Saturation ABG Base Excess POC ABG pCO2 ABG Hemoglobin ABG Oxyhemoglobin ABG Sodium ABG Chloride ABG Glucose Oxyhemoglobin Sodium Potassium Chloride Carbon Dioxide BUN Creatinine Glucose POC Glucose 151 H 145 H Lactic Acid Calcium Phosphorus Magnesium AST ALT Lactate Dehydrogenase Total Bilirubin Direct Bilirubin CK-MB (CK-2) C-Reactive Protein NT-Pro-B Natriuret Pep Total Protein Albumin Arterial Blood Glucose Urine WBC (Auto) Urine Creatinine Digoxin 12/21/19 12/22/19 12/22/19 17:16 00:01 01:33 WBC RBC Hgb Hct MCHC RDW MCV MCH Lymph % (Auto) [place] % (Auto) [place] # Eos # Lymph # (Auto) [place] # (Auto) Eos # (Auto) Seg Neutrophils % Seg Neuts % (Manual) Baso # (Auto) Lymphocytes % (Manual) Monocytes % (Manual) Eosinophils % (Manual) Basophils % (Manual) Seg Neutrophils # Seg Neutrophils # Man Lymphocytes # (Manual) Monocytes # (Manual) Eosinophils # (Manual) Nucleated RBC % Basophils # (Manual) PT INR APTT Heparin Anti-Xa Level 0.10 L ABG pH POC ABG pO2 ABG pO2 ABG HCO3 ABG O2 Saturation ABG Base Excess POC ABG pCO2 ABG Hemoglobin ABG Oxyhemoglobin ABG Sodium ABG Chloride ABG Glucose Oxyhemoglobin Sodium Potassium Chloride Carbon Dioxide BUN Creatinine Glucose POC Glucose 167 H 179 H Lactic Acid Calcium Phosphorus Magnesium AST ALT Lactate Dehydrogenase Total Bilirubin Direct Bilirubin CK-MB (CK-2) C-Reactive Protein NT-Pro-B Natriuret Pep Total Protein Albumin Arterial Blood Glucose Urine WBC (Auto) Urine Creatinine Digoxin 12/22/19 12/22/19 12/22/19 03:22 05:10 05:10 WBC 13.8 H RBC 3.20 L Hgb 8.9 L Hct 28.1 L MCHC RDW 15.9 H MCV MCH Lymph % (Auto) [place] % (Auto) [place] # Eos # Lymph # (Auto) [place] # (Auto) Eos # (Auto) Seg Neutrophils % Seg Neuts % (Manual) Baso # (Auto) Lymphocytes % (Manual) Monocytes % (Manual) Eosinophils % (Manual) Basophils % (Manual) Seg Neutrophils # Seg Neutrophils # Man Lymphocytes # (Manual) Monocytes # (Manual) Eosinophils # (Manual) Nucleated RBC % Basophils # (Manual) PT INR APTT Heparin Anti-Xa Level ABG pH POC ABG pO2 52.3 L ABG pO2 ABG HCO3 ABG O2 Saturation ABG Base Excess POC ABG pCO2 52.9 H ABG Hemoglobin 10.7 L ABG Oxyhemoglobin 84 L ABG Sodium ABG Chloride ABG Glucose Oxyhemoglobin Sodium Potassium Chloride 96.6 L Carbon Dioxide BUN 25 H Creatinine 0.7 L Glucose 129 H POC Glucose Lactic Acid Calcium Phosphorus Magnesium AST ALT Lactate Dehydrogenase Total Bilirubin Direct Bilirubin CK-MB (CK-2) C-Reactive Protein NT-Pro-B Natriuret Pep Total Protein Albumin Arterial Blood Glucose Urine WBC (Auto) Urine Creatinine Digoxin 12/22/19 12/22/19 12/22/19 05:18 12:32 12:43 WBC RBC Hgb Hct MCHC RDW MCV MCH Lymph % (Auto) [place] % (Auto) [place] # Eos # Lymph # (Auto) [place] # (Auto) Eos # (Auto) Seg Neutrophils % Seg Neuts % (Manual) Baso # (Auto) Lymphocytes % (Manual) Monocytes % (Manual) Eosinophils % (Manual) Basophils % (Manual) Seg Neutrophils # Seg Neutrophils # Man Lymphocytes # (Manual) Monocytes # (Manual) Eosinophils # (Manual) Nucleated RBC % Basophils # (Manual) PT INR APTT Heparin Anti-Xa Level 0.18 L ABG pH POC ABG pO2 ABG pO2 ABG HCO3 ABG O2 Saturation ABG Base Excess POC ABG pCO2 ABG Hemoglobin ABG Oxyhemoglobin ABG Sodium ABG Chloride ABG Glucose Oxyhemoglobin Sodium Potassium Chloride Carbon Dioxide BUN Creatinine Glucose POC Glucose 131 H 208 H Lactic Acid Calcium Phosphorus Magnesium AST ALT Lactate Dehydrogenase Total Bilirubin Direct Bilirubin CK-MB (CK-2) C-Reactive Protein NT-Pro-B Natriuret Pep Total Protein Albumin Arterial Blood Glucose Urine WBC (Auto) Urine Creatinine Digoxin 12/22/19 12/22/19 12/23/19 17:44 23:20 03:51 WBC 15.2 H RBC 3.43 L Hgb 9.6 L Hct 30.3 L MCHC RDW 15.9 H MCV MCH Lymph % (Auto) [place] % (Auto) [place] # Eos # Lymph # (Auto) [place] # (Auto) Eos # (Auto) Seg Neutrophils % Seg Neuts % (Manual) Baso # (Auto) Lymphocytes % (Manual) Monocytes % (Manual) Eosinophils % (Manual) Basophils % (Manual) Seg Neutrophils # Seg Neutrophils # Man Lymphocytes # (Manual) Monocytes # (Manual) Eosinophils # (Manual) Nucleated RBC % Basophils # (Manual) PT INR APTT Heparin Anti-Xa Level ABG pH POC ABG pO2 ABG pO2 ABG HCO3 ABG O2 Saturation ABG Base Excess POC ABG pCO2 ABG Hemoglobin ABG Oxyhemoglobin ABG Sodium ABG Chloride ABG Glucose Oxyhemoglobin Sodium Potassium Chloride Carbon Dioxide BUN Creatinine Glucose POC Glucose 209 H 119 H Lactic Acid Calcium Phosphorus Magnesium AST ALT Lactate Dehydrogenase Total Bilirubin Direct Bilirubin CK-MB (CK-2) C-Reactive Protein NT-Pro-B Natriuret Pep Total Protein Albumin Arterial Blood Glucose Urine WBC (Auto) Urine Creatinine Digoxin 12/23/19 12/23/19 12/23/19 03:51 05:31 12:09 WBC RBC Hgb Hct MCHC RDW MCV MCH Lymph % (Auto) [place] % (Auto) [place] # Eos # Lymph # (Auto) [place] # (Auto) Eos # (Auto) Seg Neutrophils % Seg Neuts % (Manual) Baso # (Auto) Lymphocytes % (Manual) Monocytes % (Manual) Eosinophils % (Manual) Basophils % (Manual) Seg Neutrophils # Seg Neutrophils # Man Lymphocytes # (Manual) Monocytes # (Manual) Eosinophils # (Manual) Nucleated RBC % Basophils # (Manual) PT INR APTT Heparin Anti-Xa Level ABG pH POC ABG pO2 ABG pO2 ABG HCO3 ABG O2 Saturation ABG Base Excess POC ABG pCO2 ABG Hemoglobin ABG Oxyhemoglobin ABG Sodium ABG Chloride ABG Glucose Oxyhemoglobin Sodium Potassium Chloride 97.2 L Carbon Dioxide 31 H BUN 23 H Creatinine 0.6 L Glucose 153 H POC Glucose 149 H 144 H Lactic Acid Calcium Phosphorus Magnesium AST ALT Lactate Dehydrogenase Total Bilirubin Direct Bilirubin CK-MB (CK-2) C-Reactive Protein NT-Pro-B Natriuret Pep Total Protein Albumin Arterial Blood Glucose Urine WBC (Auto) Urine Creatinine Digoxin 12/23/19 12/23/19 12/23/19 15:30 17:49 23:31 WBC RBC Hgb Hct MCHC RDW MCV MCH Lymph % (Auto) [place] % (Auto) [place] # Eos # Lymph # (Auto) [place] # (Auto) Eos # (Auto) Seg Neutrophils % Seg Neuts % (Manual) Baso # (Auto) Lymphocytes % (Manual) Monocytes % (Manual) Eosinophils % (Manual) Basophils % (Manual) Seg Neutrophils # Seg Neutrophils # Man Lymphocytes # (Manual) Monocytes # (Manual) Eosinophils # (Manual) Nucleated RBC % Basophils # (Manual) PT INR APTT Heparin Anti-Xa Level 0.21 L ABG pH POC ABG pO2 ABG pO2 ABG HCO3 ABG O2 Saturation ABG Base Excess POC ABG pCO2 ABG Hemoglobin ABG Oxyhemoglobin ABG Sodium ABG Chloride ABG Glucose Oxyhemoglobin Sodium Potassium Chloride Carbon Dioxide BUN Creatinine Glucose POC Glucose 192 H 151 H Lactic Acid Calcium Phosphorus Magnesium AST ALT Lactate Dehydrogenase Total Bilirubin Direct Bilirubin CK-MB (CK-2) C-Reactive Protein NT-Pro-B Natriuret Pep Total Protein Albumin Arterial Blood Glucose Urine WBC (Auto) Urine Creatinine Digoxin 12/24/19 12/24/19 12/24/19 05:34 12:13 16:50 WBC RBC Hgb Hct MCHC RDW MCV MCH Lymph % (Auto) [place] % (Auto) [place] # Eos # Lymph # (Auto) [place] # (Auto) Eos # (Auto) Seg Neutrophils % Seg Neuts % (Manual) Baso # (Auto) Lymphocytes % (Manual) Monocytes % (Manual) Eosinophils % (Manual) Basophils % (Manual) Seg Neutrophils # Seg Neutrophils # Man Lymphocytes # (Manual) Monocytes # (Manual) Eosinophils # (Manual) Nucleated RBC % Basophils # (Manual) PT INR APTT Heparin Anti-Xa Level 0.16 L ABG pH POC ABG pO2 ABG pO2 ABG HCO3 ABG O2 Saturation ABG Base Excess POC ABG pCO2 ABG Hemoglobin ABG Oxyhemoglobin ABG Sodium ABG Chloride ABG Glucose Oxyhemoglobin Sodium Potassium Chloride Carbon Dioxide BUN Creatinine Glucose POC Glucose 145 H 124 H Lactic Acid Calcium Phosphorus Magnesium AST ALT Lactate Dehydrogenase Total Bilirubin Direct Bilirubin CK-MB (CK-2) C-Reactive Protein NT-Pro-B Natriuret Pep Total Protein Albumin Arterial Blood Glucose Urine WBC (Auto) Urine Creatinine Digoxin 12/24/19 12/25/19 12/25/19 17:53 00:14 04:18 WBC 12.9 H RBC 3.30 L Hgb 9.1 L Hct 28.8 L MCHC RDW 16.4 H MCV MCH Lymph % (Auto) [place] % (Auto) 7.8 H [place] # Eos # Lymph # (Auto) [place] # (Auto) 1.0 H Eos # (Auto) Seg Neutrophils % 75.5 H Seg Neuts % (Manual) Baso # (Auto) Lymphocytes % (Manual) Monocytes % (Manual) Eosinophils % (Manual) Basophils % (Manual) Seg Neutrophils # 9.7 H Seg Neutrophils # Man Lymphocytes # (Manual) Monocytes # (Manual) Eosinophils # (Manual) Nucleated RBC % Basophils # (Manual) PT INR APTT Heparin Anti-Xa Level ABG pH POC ABG pO2 ABG pO2 ABG HCO3 ABG O2 Saturation ABG Base Excess POC ABG pCO2 ABG Hemoglobin ABG Oxyhemoglobin ABG Sodium ABG Chloride ABG Glucose Oxyhemoglobin Sodium Potassium Chloride Carbon Dioxide BUN Creatinine Glucose POC Glucose 164 H 148 H Lactic Acid Calcium Phosphorus Magnesium AST ALT Lactate Dehydrogenase Total Bilirubin Direct Bilirubin CK-MB (CK-2) C-Reactive Protein NT-Pro-B Natriuret Pep Total Protein Albumin Arterial Blood Glucose Urine WBC (Auto) Urine Creatinine Digoxin 12/25/19 12/25/19 12/25/19 04:18 05:38 11:44 WBC RBC Hgb Hct MCHC RDW MCV MCH Lymph % (Auto) [place] % (Auto) [place] # Eos # Lymph # (Auto) [place] # (Auto) Eos # (Auto) Seg Neutrophils % Seg Neuts % (Manual) Baso # (Auto) Lymphocytes % (Manual) Monocytes % (Manual) Eosinophils % (Manual) Basophils % (Manual) Seg Neutrophils # Seg Neutrophils # Man Lymphocytes # (Manual) Monocytes # (Manual) Eosinophils # (Manual) Nucleated RBC % Basophils # (Manual) PT INR APTT Heparin Anti-Xa Level ABG pH POC ABG pO2 ABG pO2 ABG HCO3 ABG O2 Saturation ABG Base Excess POC ABG pCO2 ABG Hemoglobin ABG Oxyhemoglobin ABG Sodium ABG Chloride ABG Glucose Oxyhemoglobin Sodium Potassium Chloride Carbon Dioxide 33 H BUN 27 H Creatinine 0.6 L Glucose 132 H POC Glucose 152 H 166 H Lactic Acid Calcium Phosphorus Magnesium AST ALT Lactate Dehydrogenase Total Bilirubin Direct Bilirubin CK-MB (CK-2) C-Reactive Protein NT-Pro-B Natriuret Pep Total Protein Albumin Arterial Blood Glucose Urine WBC (Auto) Urine Creatinine Digoxin 12/25/19 12/26/19 12/26/19 18:29 00:17 00:18 WBC RBC Hgb Hct MCHC RDW MCV MCH Lymph % (Auto) [place] % (Auto) [place] # Eos # Lymph # (Auto) [place] # (Auto) Eos # (Auto) Seg Neutrophils % Seg Neuts % (Manual) Baso # (Auto) Lymphocytes % (Manual) Monocytes % (Manual) Eosinophils % (Manual) Basophils % (Manual) Seg Neutrophils # Seg Neutrophils # Man Lymphocytes # (Manual) Monocytes # (Manual) Eosinophils # (Manual) Nucleated RBC % Basophils # (Manual) PT INR APTT Heparin Anti-Xa Level ABG pH POC ABG pO2 ABG pO2 ABG HCO3 ABG O2 Saturation ABG Base Excess POC ABG pCO2 ABG Hemoglobin ABG Oxyhemoglobin ABG Sodium ABG Chloride ABG Glucose Oxyhemoglobin Sodium Potassium Chloride 97.8 L Carbon Dioxide BUN 25 H Creatinine 0.6 L Glucose 140 H POC Glucose 194 H 151 H Lactic Acid Calcium Phosphorus Magnesium AST ALT Lactate Dehydrogenase Total Bilirubin Direct Bilirubin CK-MB (CK-2) C-Reactive Protein NT-Pro-B Natriuret Pep Total Protein Albumin Arterial Blood Glucose Urine WBC (Auto) Urine Creatinine Digoxin 12/26/19 12/26/19 12/26/19 05:36 11:41 17:50 WBC RBC Hgb Hct MCHC RDW MCV MCH Lymph % (Auto) [place] % (Auto) [place] # Eos # Lymph # (Auto) [place] # (Auto) Eos # (Auto) Seg Neutrophils % Seg Neuts % (Manual) Baso # (Auto) Lymphocytes % (Manual) Monocytes % (Manual) Eosinophils % (Manual) Basophils % (Manual) Seg Neutrophils # Seg Neutrophils # Man Lymphocytes # (Manual) Monocytes # (Manual) Eosinophils # (Manual) Nucleated RBC % Basophils # (Manual) PT INR APTT Heparin Anti-Xa Level ABG pH POC ABG pO2 ABG pO2 ABG HCO3 ABG O2 Saturation ABG Base Excess POC ABG pCO2 ABG Hemoglobin ABG Oxyhemoglobin ABG Sodium ABG Chloride ABG Glucose Oxyhemoglobin Sodium Potassium Chloride Carbon Dioxide BUN Creatinine Glucose POC Glucose 156 H 148 H 139 H Lactic Acid Calcium Phosphorus Magnesium AST ALT Lactate Dehydrogenase Total Bilirubin Direct Bilirubin CK-MB (CK-2) C-Reactive Protein NT-Pro-B Natriuret Pep Total Protein Albumin Arterial Blood Glucose Urine WBC (Auto) Urine Creatinine Digoxin 12/26/19 12/27/19 12/27/19 23:19 05:34 12:02 WBC RBC Hgb Hct MCHC RDW MCV MCH Lymph % (Auto) [place] % (Auto) [place] # Eos # Lymph # (Auto) [place] # (Auto) Eos # (Auto) Seg Neutrophils % Seg Neuts % (Manual) Baso # (Auto) Lymphocytes % (Manual) Monocytes % (Manual) Eosinophils % (Manual) Basophils % (Manual) Seg Neutrophils # Seg Neutrophils # Man Lymphocytes # (Manual) Monocytes # (Manual) Eosinophils # (Manual) Nucleated RBC % Basophils # (Manual) PT INR APTT Heparin Anti-Xa Level ABG pH POC ABG pO2 ABG pO2 ABG HCO3 ABG O2 Saturation ABG Base Excess POC ABG pCO2 ABG Hemoglobin ABG Oxyhemoglobin ABG Sodium ABG Chloride ABG Glucose Oxyhemoglobin Sodium Potassium Chloride Carbon Dioxide BUN Creatinine Glucose POC Glucose 161 H 145 H 157 H Lactic Acid Calcium Phosphorus Magnesium AST ALT Lactate Dehydrogenase Total Bilirubin Direct Bilirubin CK-MB (CK-2) C-Reactive Protein NT-Pro-B Natriuret Pep Total Protein Albumin Arterial Blood Glucose Urine WBC (Auto) Urine Creatinine Digoxin 12/27/19 12/27/19 12/27/19 17:35 20:11 23:00 WBC RBC Hgb Hct MCHC RDW MCV MCH Lymph % (Auto) [place] % (Auto) [place] # Eos # Lymph # (Auto) [place] # (Auto) Eos # (Auto) Seg Neutrophils % Seg Neuts % (Manual) Baso # (Auto) Lymphocytes % (Manual) Monocytes % (Manual) Eosinophils % (Manual) Basophils % (Manual) Seg Neutrophils # Seg Neutrophils # Man Lymphocytes # (Manual) Monocytes # (Manual) Eosinophils # (Manual) Nucleated RBC % Basophils # (Manual) PT INR APTT Heparin Anti-Xa Level 0.19 L ABG pH POC ABG pO2 ABG pO2 ABG HCO3 ABG O2 Saturation ABG Base Excess POC ABG pCO2 ABG Hemoglobin ABG Oxyhemoglobin ABG Sodium ABG Chloride ABG Glucose Oxyhemoglobin Sodium Potassium Chloride Carbon Dioxide BUN Creatinine Glucose POC Glucose 158 H 155 H Lactic Acid Calcium Phosphorus Magnesium AST ALT Lactate Dehydrogenase Total Bilirubin Direct Bilirubin CK-MB (CK-2) C-Reactive Protein NT-Pro-B Natriuret Pep Total Protein Albumin Arterial Blood Glucose Urine WBC (Auto) Urine Creatinine Digoxin 12/27/19 12/28/19 12/28/19 23:45 02:41 02:41 WBC 13.0 H RBC 3.48 L Hgb 9.5 L Hct 30.6 L MCHC 31 L RDW 16.6 H MCV MCH 27 L Lymph % (Auto) 13.0 L [place] % (Auto) 8.0 H [place] # Eos # Lymph # (Auto) [place] # (Auto) 1.0 H Eos # (Auto) Seg Neutrophils % 76.3 H Seg Neuts % (Manual) Baso # (Auto) Lymphocytes % (Manual) Monocytes % (Manual) Eosinophils % (Manual) Basophils % (Manual) Seg Neutrophils # 9.9 H Seg Neutrophils # Man Lymphocytes # (Manual) Monocytes # (Manual) Eosinophils # (Manual) Nucleated RBC % Basophils # (Manual) PT INR APTT Heparin Anti-Xa Level ABG pH POC ABG pO2 ABG pO2 ABG HCO3 ABG O2 Saturation ABG Base Excess POC ABG pCO2 ABG Hemoglobin ABG Oxyhemoglobin ABG Sodium ABG Chloride ABG Glucose Oxyhemoglobin Sodium Potassium Chloride Carbon Dioxide BUN 22 H Creatinine 0.6 L Glucose 101 H POC Glucose 130 H Lactic Acid Calcium Phosphorus Magnesium AST ALT Lactate Dehydrogenase Total Bilirubin Direct Bilirubin CK-MB (CK-2) C-Reactive Protein NT-Pro-B Natriuret Pep Total Protein Albumin Arterial Blood Glucose Urine WBC (Auto) Urine Creatinine Digoxin 12/28/19 12/28/19 12/28/19 06:00 12:34 18:13 WBC RBC Hgb Hct MCHC RDW MCV MCH Lymph % (Auto) [place] % (Auto) [place] # Eos # Lymph # (Auto) [place] # (Auto) Eos # (Auto) Seg Neutrophils % Seg Neuts % (Manual) Baso # (Auto) Lymphocytes % (Manual) Monocytes % (Manual) Eosinophils % (Manual) Basophils % (Manual) Seg Neutrophils # Seg Neutrophils # Man Lymphocytes # (Manual) Monocytes # (Manual) Eosinophils # (Manual) Nucleated RBC % Basophils # (Manual) PT INR APTT Heparin Anti-Xa Level ABG pH POC ABG pO2 ABG pO2 ABG HCO3 ABG O2 Saturation ABG Base Excess POC ABG pCO2 ABG Hemoglobin ABG Oxyhemoglobin ABG Sodium ABG Chloride ABG Glucose Oxyhemoglobin Sodium Potassium Chloride Carbon Dioxide BUN Creatinine Glucose POC Glucose 150 H 161 H 128 H Lactic Acid Calcium Phosphorus Magnesium AST ALT Lactate Dehydrogenase Total Bilirubin Direct Bilirubin CK-MB (CK-2) C-Reactive Protein NT-Pro-B Natriuret Pep Total Protein Albumin Arterial Blood Glucose Urine WBC (Auto) Urine Creatinine Digoxin 12/28/19 12/29/19 12/29/19 23:36 05:21 11:40 WBC RBC Hgb Hct MCHC RDW MCV MCH Lymph % (Auto) [place] % (Auto) [place] # Eos # Lymph # (Auto) [place] # (Auto) Eos # (Auto) Seg Neutrophils % Seg Neuts % (Manual) Baso # (Auto) Lymphocytes % (Manual) Monocytes % (Manual) Eosinophils % (Manual) Basophils % (Manual) Seg Neutrophils # Seg Neutrophils # Man Lymphocytes # (Manual) Monocytes # (Manual) Eosinophils # (Manual) Nucleated RBC % Basophils # (Manual) PT INR APTT Heparin Anti-Xa Level ABG pH POC ABG pO2 ABG pO2 ABG HCO3 ABG O2 Saturation ABG Base Excess POC ABG pCO2 ABG Hemoglobin ABG Oxyhemoglobin ABG Sodium ABG Chloride ABG Glucose Oxyhemoglobin Sodium Potassium Chloride Carbon Dioxide BUN Creatinine Glucose POC Glucose 137 H 136 H 166 H Lactic Acid Calcium Phosphorus Magnesium AST ALT Lactate Dehydrogenase Total Bilirubin Direct Bilirubin CK-MB (CK-2) C-Reactive Protein NT-Pro-B Natriuret Pep Total Protein Albumin Arterial Blood Glucose Urine WBC (Auto) Urine Creatinine Digoxin 12/29/19 12/29/19 12/29/19 17:23 19:21 23:38 WBC RBC Hgb Hct MCHC RDW MCV MCH Lymph % (Auto) [place] % (Auto) [place] # Eos # Lymph # (Auto) [place] # (Auto) Eos # (Auto) Seg Neutrophils % Seg Neuts % (Manual) Baso # (Auto) Lymphocytes % (Manual) Monocytes % (Manual) Eosinophils % (Manual) Basophils % (Manual) Seg Neutrophils # Seg Neutrophils # Man Lymphocytes # (Manual) Monocytes # (Manual) Eosinophils # (Manual) Nucleated RBC % Basophils # (Manual) PT INR APTT Heparin Anti-Xa Level 0.20 L ABG pH POC ABG pO2 ABG pO2 ABG HCO3 ABG O2 Saturation ABG Base Excess POC ABG pCO2 ABG Hemoglobin ABG Oxyhemoglobin ABG Sodium ABG Chloride ABG Glucose Oxyhemoglobin Sodium Potassium Chloride Carbon Dioxide BUN Creatinine Glucose POC Glucose 144 H 141 H Lactic Acid Calcium Phosphorus Magnesium AST ALT Lactate Dehydrogenase Total Bilirubin Direct Bilirubin CK-MB (CK-2) C-Reactive Protein NT-Pro-B Natriuret Pep Total Protein Albumin Arterial Blood Glucose Urine WBC (Auto) Urine Creatinine Digoxin 12/30/19 12/30/19 12/30/19 03:58 03:58 04:59 WBC RBC 3.54 L Hgb 9.8 L Hct 30.7 L MCHC RDW 16.8 H MCV MCH Lymph % (Auto) [place] % (Auto) [place] # Eos # Lymph # (Auto) [place] # (Auto) Eos # (Auto) Seg Neutrophils % Seg Neuts % (Manual) Baso # (Auto) Lymphocytes % (Manual) Monocytes % (Manual) Eosinophils % (Manual) Basophils % (Manual) Seg Neutrophils # Seg Neutrophils # Man Lymphocytes # (Manual) Monocytes # (Manual) Eosinophils # (Manual) Nucleated RBC % Basophils # (Manual) PT INR APTT Heparin Anti-Xa Level ABG pH POC ABG pO2 ABG pO2 ABG HCO3 29.8 H ABG O2 Saturation ABG Base Excess 4.8 H POC ABG pCO2 ABG Hemoglobin 11.2 L ABG Oxyhemoglobin ABG Sodium ABG Chloride ABG Glucose Oxyhemoglobin 93.8 L Sodium Potassium Chloride 97.8 L Carbon Dioxide BUN 26 H Creatinine Glucose 168 H POC Glucose Lactic Acid Calcium Phosphorus Magnesium AST ALT Lactate Dehydrogenase Total Bilirubin Direct Bilirubin CK-MB (CK-2) C-Reactive Protein NT-Pro-B Natriuret Pep Total Protein Albumin Arterial Blood Glucose Urine WBC (Auto) Urine Creatinine Digoxin 12/30/19 12/30/19 12/30/19 05:45 11:34 17:28 WBC RBC Hgb Hct MCHC RDW MCV MCH Lymph % (Auto) [place] % (Auto) [place] # Eos # Lymph # (Auto) [place] # (Auto) Eos # (Auto) Seg Neutrophils % Seg Neuts % (Manual) Baso # (Auto) Lymphocytes % (Manual) Monocytes % (Manual) Eosinophils % (Manual) Basophils % (Manual) Seg Neutrophils # Seg Neutrophils # Man Lymphocytes # (Manual) Monocytes # (Manual) Eosinophils # (Manual) Nucleated RBC % Basophils # (Manual) PT INR APTT Heparin Anti-Xa Level ABG pH POC ABG pO2 ABG pO2 ABG HCO3 ABG O2 Saturation ABG Base Excess POC ABG pCO2 ABG Hemoglobin ABG Oxyhemoglobin ABG Sodium ABG Chloride ABG Glucose Oxyhemoglobin Sodium Potassium Chloride Carbon Dioxide BUN Creatinine Glucose POC Glucose 163 H 180 H 150 H Lactic Acid Calcium Phosphorus Magnesium AST ALT Lactate Dehydrogenase Total Bilirubin Direct Bilirubin CK-MB (CK-2) C-Reactive Protein NT-Pro-B Natriuret Pep Total Protein Albumin Arterial Blood Glucose Urine WBC (Auto) Urine Creatinine Digoxin 12/30/19 12/31/19 12/31/19 23:43 04:55 05:07 WBC RBC Hgb Hct MCHC RDW MCV MCH Lymph % (Auto) [place] % (Auto) [place] # Eos # Lymph # (Auto) [place] # (Auto) Eos # (Auto) Seg Neutrophils % Seg Neuts % (Manual) Baso # (Auto) Lymphocytes % (Manual) Monocytes % (Manual) Eosinophils % (Manual) Basophils % (Manual) Seg Neutrophils # Seg Neutrophils # Man Lymphocytes # (Manual) Monocytes # (Manual) Eosinophils # (Manual) Nucleated RBC % Basophils # (Manual) PT INR APTT Heparin Anti-Xa Level ABG pH POC ABG pO2 ABG pO2 ABG HCO3 ABG O2 Saturation ABG Base Excess POC ABG pCO2 ABG Hemoglobin ABG Oxyhemoglobin ABG Sodium ABG Chloride ABG Glucose Oxyhemoglobin Sodium Potassium 5.6 H D Chloride Carbon Dioxide BUN 33 H Creatinine Glucose 131 H POC Glucose 142 H 134 H Lactic Acid Calcium Phosphorus Magnesium AST ALT Lactate Dehydrogenase Total Bilirubin Direct Bilirubin CK-MB (CK-2) C-Reactive Protein NT-Pro-B Natriuret Pep Total Protein Albumin Arterial Blood Glucose Urine WBC (Auto) Urine Creatinine Digoxin 12/31/19 12/31/19 12/31/19 11:30 17:19 17:36 WBC RBC Hgb Hct MCHC RDW MCV MCH Lymph % (Auto) [place] % (Auto) [place] # Eos # Lymph # (Auto) [place] # (Auto) Eos # (Auto) Seg Neutrophils % Seg Neuts % (Manual) Baso # (Auto) Lymphocytes % (Manual) Monocytes % (Manual) Eosinophils % (Manual) Basophils % (Manual) Seg Neutrophils # Seg Neutrophils # Man Lymphocytes # (Manual) Monocytes # (Manual) Eosinophils # (Manual) Nucleated RBC % Basophils # (Manual) PT INR APTT Heparin Anti-Xa Level ABG pH POC ABG pO2 ABG pO2 ABG HCO3 ABG O2 Saturation ABG Base Excess POC ABG pCO2 ABG Hemoglobin ABG Oxyhemoglobin ABG Sodium ABG Chloride ABG Glucose Oxyhemoglobin Sodium Potassium Chloride Carbon Dioxide BUN 35 H Creatinine Glucose 156 H POC Glucose 158 H 181 H Lactic Acid Calcium Phosphorus Magnesium AST ALT Lactate Dehydrogenase Total Bilirubin Direct Bilirubin CK-MB (CK-2) C-Reactive Protein NT-Pro-B Natriuret Pep Total Protein Albumin Arterial Blood Glucose Urine WBC (Auto) Urine Creatinine Digoxin 12/31/19 12/31/19 12/31/19 18:16 19:41 21:53 WBC RBC Hgb Hct MCHC RDW MCV MCH Lymph % (Auto) [place] % (Auto) [place] # Eos # Lymph # (Auto) [place] # (Auto) Eos # (Auto) Seg Neutrophils % Seg Neuts % (Manual) Baso # (Auto) Lymphocytes % (Manual) Monocytes % (Manual) Eosinophils % (Manual) Basophils % (Manual) Seg Neutrophils # Seg Neutrophils # Man Lymphocytes # (Manual) Monocytes # (Manual) Eosinophils # (Manual) Nucleated RBC % Basophils # (Manual) PT INR APTT Heparin Anti-Xa Level 0.20 L ABG pH POC ABG pO2 ABG pO2 ABG HCO3 ABG O2 Saturation ABG Base Excess POC ABG pCO2 ABG Hemoglobin ABG Oxyhemoglobin ABG Sodium ABG Chloride ABG Glucose Oxyhemoglobin Sodium Potassium Chloride Carbon Dioxide BUN 34 H Creatinine Glucose 169 H POC Glucose 141 H Lactic Acid Calcium Phosphorus Magnesium AST ALT Lactate Dehydrogenase Total Bilirubin Direct Bilirubin CK-MB (CK-2) C-Reactive Protein NT-Pro-B Natriuret Pep Total Protein Albumin Arterial Blood Glucose Urine WBC (Auto) Urine Creatinine Digoxin 12/31/19 01/01/20 01/01/20 23:51 05:17 10:40 WBC RBC Hgb Hct MCHC RDW MCV MCH Lymph % (Auto) [place] % (Auto) [place] # Eos # Lymph # (Auto) [place] # (Auto) Eos # (Auto) Seg Neutrophils % Seg Neuts % (Manual) Baso # (Auto) Lymphocytes % (Manual) Monocytes % (Manual) Eosinophils % (Manual) Basophils % (Manual) Seg Neutrophils # Seg Neutrophils # Man Lymphocytes # (Manual) Monocytes # (Manual) Eosinophils # (Manual) Nucleated RBC % Basophils # (Manual) PT INR APTT Heparin Anti-Xa Level ABG pH POC ABG pO2 ABG pO2 ABG HCO3 ABG O2 Saturation ABG Base Excess POC ABG pCO2 ABG Hemoglobin ABG Oxyhemoglobin ABG Sodium ABG Chloride ABG Glucose Oxyhemoglobin Sodium Potassium Chloride Carbon Dioxide BUN 31 H Creatinine 0.7 L Glucose 137 H POC Glucose 131 H 155 H Lactic Acid Calcium Phosphorus Magnesium AST 73 H ALT 97 H Lactate Dehydrogenase Total Bilirubin Direct Bilirubin CK-MB (CK-2) C-Reactive Protein NT-Pro-B Natriuret Pep 3866 H Total Protein Albumin 2.8 L Arterial Blood Glucose Urine WBC (Auto) Urine Creatinine Digoxin 01/01/20 01/01/20 01/01/20 12:26 15:33 17:53 WBC 14.3 H RBC 3.35 L Hgb 9.1 L Hct 28.8 L MCHC RDW 17.0 H MCV MCH 27 L Lymph % (Auto) 7.0 L [place] % (Auto) 7.6 H [place] # Eos # Lymph # (Auto) 1.0 L [place] # (Auto) 1.1 H Eos # (Auto) Seg Neutrophils % 83.3 H Seg Neuts % (Manual) Baso # (Auto) Lymphocytes % (Manual) Monocytes % (Manual) Eosinophils % (Manual) Basophils % (Manual) Seg Neutrophils # 12.0 H Seg Neutrophils # Man Lymphocytes # (Manual) Monocytes # (Manual) Eosinophils # (Manual) Nucleated RBC % Basophils # (Manual) PT INR APTT Heparin Anti-Xa Level ABG pH POC ABG pO2 ABG pO2 ABG HCO3 ABG O2 Saturation ABG Base Excess POC ABG pCO2 ABG Hemoglobin ABG Oxyhemoglobin ABG Sodium ABG Chloride ABG Glucose Oxyhemoglobin Sodium Potassium Chloride Carbon Dioxide BUN Creatinine Glucose POC Glucose 128 H 128 H Lactic Acid Calcium Phosphorus Magnesium AST ALT Lactate Dehydrogenase Total Bilirubin Direct Bilirubin CK-MB (CK-2) C-Reactive Protein NT-Pro-B Natriuret Pep Total Protein Albumin Arterial Blood Glucose Urine WBC (Auto) Urine Creatinine Digoxin 01/01/20 01/02/20 01/02/20 23:04 05:39 07:00 WBC RBC Hgb Hct MCHC RDW MCV MCH Lymph % (Auto) [place] % (Auto) [place] # Eos # Lymph # (Auto) [place] # (Auto) Eos # (Auto) Seg Neutrophils % Seg Neuts % (Manual) Baso # (Auto) Lymphocytes % (Manual) Monocytes % (Manual) Eosinophils % (Manual) Basophils % (Manual) Seg Neutrophils # Seg Neutrophils # Man Lymphocytes # (Manual) Monocytes # (Manual) Eosinophils # (Manual) Nucleated RBC % Basophils # (Manual) PT INR APTT Heparin Anti-Xa Level 0.13 L ABG pH POC ABG pO2 ABG pO2 ABG HCO3 ABG O2 Saturation ABG Base Excess POC ABG pCO2 ABG Hemoglobin ABG Oxyhemoglobin ABG Sodium ABG Chloride ABG Glucose Oxyhemoglobin Sodium Potassium Chloride Carbon Dioxide BUN Creatinine Glucose POC Glucose 120 H 169 H Lactic Acid Calcium Phosphorus Magnesium AST ALT Lactate Dehydrogenase Total Bilirubin Direct Bilirubin CK-MB (CK-2) C-Reactive Protein NT-Pro-B Natriuret Pep Total Protein Albumin Arterial Blood Glucose Urine WBC (Auto) Urine Creatinine Digoxin 01/02/20 01/02/20 01/02/20 12:15 14:06 17:58 WBC RBC Hgb Hct MCHC RDW MCV MCH Lymph % (Auto) [place] % (Auto) [place] # Eos # Lymph # (Auto) [place] # (Auto) Eos # (Auto) Seg Neutrophils % Seg Neuts % (Manual) Baso # (Auto) Lymphocytes % (Manual) Monocytes % (Manual) Eosinophils % (Manual) Basophils % (Manual) Seg Neutrophils # Seg Neutrophils # Man Lymphocytes # (Manual) Monocytes # (Manual) Eosinophils # (Manual) Nucleated RBC % Basophils # (Manual) PT INR APTT Heparin Anti-Xa Level < 0.10 L ABG pH POC ABG pO2 ABG pO2 ABG HCO3 ABG O2 Saturation ABG Base Excess POC ABG pCO2 ABG Hemoglobin ABG Oxyhemoglobin ABG Sodium ABG Chloride ABG Glucose Oxyhemoglobin Sodium Potassium Chloride Carbon Dioxide BUN Creatinine Glucose POC Glucose 190 H 198 H Lactic Acid Calcium Phosphorus Magnesium AST ALT Lactate Dehydrogenase Total Bilirubin Direct Bilirubin CK-MB (CK-2) C-Reactive Protein NT-Pro-B Natriuret Pep Total Protein Albumin Arterial Blood Glucose Urine WBC (Auto) Urine Creatinine Digoxin 01/02/20 01/02/20 01/03/20 21:43 23:33 05:42 WBC RBC Hgb Hct MCHC RDW MCV MCH Lymph % (Auto) [place] % (Auto) [place] # Eos # Lymph # (Auto) [place] # (Auto) Eos # (Auto) Seg Neutrophils % Seg Neuts % (Manual) Baso # (Auto) Lymphocytes % (Manual) Monocytes % (Manual) Eosinophils % (Manual) Basophils % (Manual) Seg Neutrophils # Seg Neutrophils # Man Lymphocytes # (Manual) Monocytes # (Manual) Eosinophils # (Manual) Nucleated RBC % Basophils # (Manual) PT INR APTT Heparin Anti-Xa Level 0.10 L ABG pH POC ABG pO2 ABG pO2 ABG HCO3 ABG O2 Saturation ABG Base Excess POC ABG pCO2 ABG Hemoglobin ABG Oxyhemoglobin ABG Sodium ABG Chloride ABG Glucose Oxyhemoglobin Sodium Potassium Chloride Carbon Dioxide BUN Creatinine Glucose POC Glucose 180 H 163 H Lactic Acid Calcium Phosphorus Magnesium AST ALT Lactate Dehydrogenase Total Bilirubin Direct Bilirubin CK-MB (CK-2) C-Reactive Protein NT-Pro-B Natriuret Pep Total Protein Albumin Arterial Blood Glucose Urine WBC (Auto) Urine Creatinine Digoxin 01/03/20 01/03/20 01/03/20 06:50 07:25 07:45 WBC 12.1 H RBC 3.35 L Hgb 9.0 L Hct 28.9 L MCHC 31 L RDW 16.6 H MCV MCH 27 L Lymph % (Auto) 13.0 L [place] % (Auto) 8.6 H [place] # Eos # Lymph # (Auto) [place] # (Auto) 1.0 H Eos # (Auto) Seg Neutrophils % 75.9 H Seg Neuts % (Manual) Baso # (Auto) Lymphocytes % (Manual) Monocytes % (Manual) Eosinophils % (Manual) Basophils % (Manual) Seg Neutrophils # 9.2 H Seg Neutrophils # Man Lymphocytes # (Manual) Monocytes # (Manual) Eosinophils # (Manual) Nucleated RBC % Basophils # (Manual) PT INR APTT Heparin Anti-Xa Level 0.29 L ABG pH POC ABG pO2 ABG pO2 ABG HCO3 ABG O2 Saturation ABG Base Excess POC ABG pCO2 ABG Hemoglobin ABG Oxyhemoglobin ABG Sodium ABG Chloride ABG Glucose Oxyhemoglobin Sodium Potassium 3.3 L D Chloride Carbon Dioxide 35 H D BUN 23 H Creatinine 0.6 L Glucose 149 H POC Glucose Lactic Acid Calcium Phosphorus Magnesium AST ALT 88 H Lactate Dehydrogenase Total Bilirubin Direct Bilirubin CK-MB (CK-2) C-Reactive Protein NT-Pro-B Natriuret Pep Total Protein 6.2 L Albumin 2.9 L Arterial Blood Glucose Urine WBC (Auto) Urine Creatinine Digoxin 01/03/20 01/03/20 01/03/20 12:05 17:42 18:30 WBC RBC Hgb Hct MCHC RDW MCV MCH Lymph % (Auto) [place] % (Auto) [place] # Eos # Lymph # (Auto) [place] # (Auto) Eos # (Auto) Seg Neutrophils % Seg Neuts % (Manual) Baso # (Auto) Lymphocytes % (Manual) Monocytes % (Manual) Eosinophils % (Manual) Basophils % (Manual) Seg Neutrophils # Seg Neutrophils # Man Lymphocytes # (Manual) Monocytes # (Manual) Eosinophils # (Manual) Nucleated RBC % Basophils # (Manual) PT INR APTT Heparin Anti-Xa Level ABG pH POC ABG pO2 ABG pO2 70.7 L ABG HCO3 36.1 H ABG O2 Saturation 94.4 L ABG Base Excess 10.0 H POC ABG pCO2 ABG Hemoglobin 9.7 L ABG Oxyhemoglobin ABG Sodium ABG Chloride ABG Glucose Oxyhemoglobin 91.8 L Sodium Potassium Chloride Carbon Dioxide BUN Creatinine Glucose POC Glucose 128 H 132 H Lactic Acid Calcium Phosphorus Magnesium AST ALT Lactate Dehydrogenase Total Bilirubin Direct Bilirubin CK-MB (CK-2) C-Reactive Protein NT-Pro-B Natriuret Pep Total Protein Albumin Arterial Blood Glucose Urine WBC (Auto) Urine Creatinine Digoxin 01/04/20 01/04/20 01/04/20 00:10 04:26 05:23 WBC RBC Hgb Hct MCHC RDW MCV MCH Lymph % (Auto) [place] % (Auto) [place] # Eos # Lymph # (Auto) [place] # (Auto) Eos # (Auto) Seg Neutrophils % Seg Neuts % (Manual) Baso # (Auto) Lymphocytes % (Manual) Monocytes % (Manual) Eosinophils % (Manual) Basophils % (Manual) Seg Neutrophils # Seg Neutrophils # Man Lymphocytes # (Manual) Monocytes # (Manual) Eosinophils # (Manual) Nucleated RBC % Basophils # (Manual) PT INR APTT Heparin Anti-Xa Level 0.16 L ABG pH POC ABG pO2 ABG pO2 ABG HCO3 ABG O2 Saturation ABG Base Excess POC ABG pCO2 ABG Hemoglobin ABG Oxyhemoglobin ABG Sodium ABG Chloride ABG Glucose Oxyhemoglobin Sodium Potassium Chloride Carbon Dioxide BUN Creatinine Glucose POC Glucose 121 H 119 H Lactic Acid Calcium Phosphorus Magnesium AST ALT Lactate Dehydrogenase Total Bilirubin Direct Bilirubin CK-MB (CK-2) C-Reactive Protein NT-Pro-B Natriuret Pep Total Protein Albumin Arterial Blood Glucose Urine WBC (Auto) Urine Creatinine Digoxin 01/04/20 01/04/20 01/04/20 09:50 09:50 12:18 WBC 15.4 H RBC 3.30 L Hgb 8.7 L Hct 28.2 L MCHC 31 L RDW 17.0 H MCV MCH 26 L Lymph % (Auto) [place] % (Auto) 7.6 H [place] # Eos # Lymph # (Auto) [place] # (Auto) 1.2 H Eos # (Auto) Seg Neutrophils % 75.4 H Seg Neuts % (Manual) Baso # (Auto) Lymphocytes % (Manual) Monocytes % (Manual) Eosinophils % (Manual) Basophils % (Manual) Seg Neutrophils # 11.6 H Seg Neutrophils # Man Lymphocytes # (Manual) Monocytes # (Manual) Eosinophils # (Manual) Nucleated RBC % Basophils # (Manual) PT INR APTT Heparin Anti-Xa Level ABG pH POC ABG pO2 ABG pO2 ABG HCO3 ABG O2 Saturation ABG Base Excess POC ABG pCO2 ABG Hemoglobin ABG Oxyhemoglobin ABG Sodium ABG Chloride ABG Glucose Oxyhemoglobin Sodium 148 H Potassium 3.5 L Chloride Carbon Dioxide 32 H BUN Creatinine 0.6 L Glucose 114 H POC Glucose 111 H Lactic Acid Calcium Phosphorus Magnesium AST ALT 59 H Lactate Dehydrogenase Total Bilirubin Direct Bilirubin CK-MB (CK-2) C-Reactive Protein NT-Pro-B Natriuret Pep Total Protein Albumin 2.6 L Arterial Blood Glucose Urine WBC (Auto) Urine Creatinine Digoxin 01/05/20 01/05/20 01/05/20 04:05 04:05 05:19 WBC 11.7 H RBC 3.50 L Hgb 9.3 L Hct 29.9 L MCHC 31 L RDW 16.6 H MCV MCH 27 L Lymph % (Auto) 13.1 L [place] % (Auto) 9.7 H [place] # Eos # Lymph # (Auto) [place] # (Auto) 1.1 H Eos # (Auto) Seg Neutrophils % 74.0 H Seg Neuts % (Manual) Baso # (Auto) Lymphocytes % (Manual) Monocytes % (Manual) Eosinophils % (Manual) Basophils % (Manual) Seg Neutrophils # 8.6 H Seg Neutrophils # Man Lymphocytes # (Manual) Monocytes # (Manual) Eosinophils # (Manual) Nucleated RBC % Basophils # (Manual) PT INR APTT Heparin Anti-Xa Level ABG pH POC ABG pO2 ABG pO2 ABG HCO3 ABG O2 Saturation ABG Base Excess POC ABG pCO2 ABG Hemoglobin ABG Oxyhemoglobin ABG Sodium ABG Chloride ABG Glucose Oxyhemoglobin Sodium 151 H Potassium Chloride Carbon Dioxide 34 H BUN Creatinine 0.7 L Glucose POC Glucose 112 H Lactic Acid Calcium Phosphorus Magnesium AST ALT 59 H [place]act[place] Dehydrogenase Total Bilirubin Direct Bilirubin CK-MB (CK-2) C-Reactive Protein NT-Pro-B Natriuret Pep Total Protein 5.8 L Albumin 2.6 L Arterial Blood Glucose Urine WBC (Auto) Urine Creatinine Digoxin 01/05/20 01/06/20 01/06/20 16:04 00:23 04:44 WBC RBC 3.36 L Hgb 8.9 L Hct 28.7 L MCHC 31 L RDW 16.9 H MCV MCH 26 L Lymph % (Auto) [place] % (Auto) 9.4 H [place] # Eos # Lymph # (Auto) [place] # (Auto) Eos # (Auto) Seg Neutrophils % Seg Neuts % (Manual) Baso # (Auto) Lymphocytes % (Manual) Monocytes % (Manual) Eosinophils % (Manual) Basophils % (Manual) Seg Neutrophils # Seg Neutrophils # Man Lymphocytes # (Manual) Monocytes # (Manual) Eosinophils # (Manual) Nucleated RBC % Basophils # (Manual) PT INR APTT Heparin Anti-Xa Level ABG pH POC ABG pO2 ABG pO2 ABG HCO3 ABG O2 Saturation ABG Base Excess POC ABG pCO2 ABG Hemoglobin ABG Oxyhemoglobin ABG Sodium ABG Chloride ABG Glucose Oxyhemoglobin Sodium 151 H Potassium 3.2 L Chloride Carbon Dioxide 34 H BUN Creatinine 0.6 L Glucose POC Glucose 107 H Lactic Acid Calcium Phosphorus Magnesium AST ALT Lactate Dehydrogenase Total Bilirubin Direct Bilirubin CK-MB (CK-2) C-Reactive Protein NT-Pro-B Natriuret Pep Total Protein Albumin Arterial Blood Glucose Urine WBC (Auto) Urine Creatinine Digoxin 01/06/20 01/06/20 01/06/20 04:44 05:33 12:04 WBC RBC Hgb Hct MCHC RDW MCV MCH Lymph % (Auto) [place] % (Auto) [place] # Eos # Lymph # (Auto) [place] # (Auto) Eos # (Auto) Seg Neutrophils % Seg Neuts % (Manual) Baso # (Auto) Lymphocytes % (Manual) Monocytes % (Manual) Eosinophils % (Manual) Basophils % (Manual) Seg Neutrophils # Seg Neutrophils # Man Lymphocytes # (Manual) Monocytes # (Manual) Eosinophils # (Manual) Nucleated RBC % Basophils # (Manual) PT INR APTT Heparin Anti-Xa Level ABG pH POC ABG pO2 ABG pO2 ABG HCO3 ABG O2 Saturation ABG Base Excess POC ABG pCO2 ABG Hemoglobin ABG Oxyhemoglobin ABG Sodium ABG Chloride ABG Glucose Oxyhemoglobin Sodium 151 H Potassium 3.4 L Chloride Carbon Dioxide 33 H BUN Creatinine 0.6 L Glucose 118 H POC Glucose 118 H 123 H Lactic Acid Calcium Phosphorus Magnesium AST ALT Lactate Dehydrogenase Total Bilirubin Direct Bilirubin CK-MB (CK-2) C-Reactive Protein NT-Pro-B Natriuret Pep Total Protein 6.2 L Albumin 2.6 L Arterial Blood Glucose Urine WBC (Auto) Urine Creatinine Digoxin 01/06/20 01/07/20 01/07/20 17:54 00:06 04:10 WBC RBC 3.42 L Hgb 8.9 L Hct 29.0 L MCHC 31 L RDW 17.1 H MCV MCH 26 L Lymph % (Auto) [place] % (Auto) 8.4 H [place] # Eos # Lymph # (Auto) [place] # (Auto) Eos # (Auto) Seg Neutrophils % Seg Neuts % (Manual) Baso # (Auto) Lymphocytes % (Manual) Monocytes % (Manual) Eosinophils % (Manual) Basophils % (Manual) Seg Neutrophils # Seg Neutrophils # Man Lymphocytes # (Manual) Monocytes # (Manual) Eosinophils # (Manual) Nucleated RBC % Basophils # (Manual) PT INR APTT Heparin Anti-Xa Level ABG pH POC ABG pO2 ABG pO2 ABG HCO3 ABG O2 Saturation ABG Base Excess POC ABG pCO2 ABG Hemoglobin ABG Oxyhemoglobin ABG Sodium ABG Chloride ABG Glucose Oxyhemoglobin Sodium Potassium Chloride Carbon Dioxide BUN Creatinine Glucose POC Glucose 112 H 126 H Lactic Acid Calcium Phosphorus Magnesium AST ALT Lactate Dehydrogenase Total Bilirubin Direct Bilirubin CK-MB (CK-2) C-Reactive Protein NT-Pro-B Natriuret Pep Total Protein Albumin Arterial Blood Glucose Urine WBC (Auto) Urine Creatinine Digoxin 01/07/20 01/07/20 01/07/20 04:10 05:59 12:27 WBC RBC Hgb Hct MCHC RDW MCV MCH Lymph % (Auto) [place] % (Auto) [place] # Eos # Lymph # (Auto) [place] # (Auto) Eos # (Auto) Seg Neutrophils % Seg Neuts % (Manual) Baso # (Auto) Lymphocytes % (Manual) Monocytes % (Manual) Eosinophils % (Manual) Basophils % (Manual) Seg Neutrophils # Seg Neutrophils # Man Lymphocytes # (Manual) Monocytes # (Manual) Eosinophils # (Manual) Nucleated RBC % Basophils # (Manual) PT INR APTT Heparin Anti-Xa Level ABG pH POC ABG pO2 ABG pO2 ABG HCO3 ABG O2 Saturation ABG Base Excess POC ABG pCO2 ABG Hemoglobin ABG Oxyhemoglobin ABG Sodium ABG Chloride ABG Glucose Oxyhemoglobin Sodium 153 H Potassium 3.5 L Chloride Carbon Dioxide 34 H BUN Creatinine 0.6 L Glucose 121 H POC Glucose 121 H 126 H Lactic Acid Calcium Phosphorus Magnesium AST ALT Lactate Dehydrogenase Total Bilirubin Direct Bilirubin CK-MB (CK-2) C-Reactive Protein NT-Pro-B Natriuret Pep Total Protein 5.9 L Albumin 2.4 L Arterial Blood Glucose Urine WBC (Auto) Urine Creatinine Digoxin 01/07/20 01/08/20 01/08/20 18:12 00:03 05:41 WBC RBC Hgb Hct MCHC RDW MCV MCH Lymph % (Auto) [place] % (Auto) [place] # Eos # Lymph # (Auto) [place] # (Auto) Eos # (Auto) Seg Neutrophils % Seg Neuts % (Manual) Baso # (Auto) Lymphocytes % (Manual) Monocytes % (Manual) Eosinophils % (Manual) Basophils % (Manual) Seg Neutrophils # Seg Neutrophils # Man Lymphocytes # (Manual) Monocytes # (Manual) Eosinophils # (Manual) Nucleated RBC % Basophils # (Manual) PT INR APTT Heparin Anti-Xa Level ABG pH POC ABG pO2 ABG pO2 ABG HCO3 ABG O2 Saturation ABG Base Excess POC ABG pCO2 ABG Hemoglobin ABG Oxyhemoglobin ABG Sodium ABG Chloride ABG Glucose Oxyhemoglobin Sodium Potassium Chloride Carbon Dioxide BUN Creatinine Glucose POC Glucose 124 H 130 H 138 H Lactic Acid Calcium Phosphorus Magnesium AST ALT Lactate Dehydrogenase Total Bilirubin Direct Bilirubin CK-MB (CK-2) C-Reactive Protein NT-Pro-B Natriuret Pep Total Protein Albumin Arterial Blood Glucose Urine WBC (Auto) Urine Creatinine Digoxin 01/08/20 01/08/20 01/08/20 09:28 11:42 18:21 WBC RBC Hgb Hct MCHC RDW MCV MCH Lymph % (Auto) [place] % (Auto) [place] # Eos # Lymph # (Auto) [place] # (Auto) Eos # (Auto) Seg Neutrophils % Seg Neuts % (Manual) Baso # (Auto) Lymphocytes % (Manual) Monocytes % (Manual) Eosinophils % (Manual) Basophils % (Manual) Seg Neutrophils # Seg Neutrophils # Man Lymphocytes # (Manual) Monocytes # (Manual) Eosinophils # (Manual) Nucleated RBC % Basophils # (Manual) PT INR APTT Heparin Anti-Xa Level ABG pH POC ABG pO2 ABG pO2 ABG HCO3 ABG O2 Saturation ABG Base Excess POC ABG pCO2 ABG Hemoglobin ABG Oxyhemoglobin ABG Sodium ABG Chloride ABG Glucose Oxyhemoglobin Sodium Potassium Chloride Carbon Dioxide BUN Creatinine Glucose POC Glucose 181 H 150 H 129 H Lactic Acid Calcium Phosphorus Magnesium AST ALT Lactate Dehydrogenase Total Bilirubin Direct Bilirubin CK-MB (CK-2) C-Reactive Protein NT-Pro-B Natriuret Pep Total Protein Albumin Arterial Blood Glucose Urine WBC (Auto) Urine Creatinine Digoxin 01/08/20 01/08/20 01/09/20 19:25 23:55 04:11 WBC RBC 3.43 L Hgb 8.9 L Hct 28.7 L MCHC 31 L RDW 17.6 H MCV MCH 26 L Lymph % (Auto) [place] % (Auto) 8.6 H [place] # Eos # Lymph # (Auto) [place] # (Auto) Eos # (Auto) Seg Neutrophils % Seg Neuts % (Manual) Baso # (Auto) Lymphocytes % (Manual) Monocytes % (Manual) Eosinophils % (Manual) Basophils % (Manual) Seg Neutrophils # Seg Neutrophils # Man Lymphocytes # (Manual) Monocytes # (Manual) Eosinophils # (Manual) Nucleated RBC % Basophils # (Manual) PT INR APTT Heparin Anti-Xa Level ABG pH POC ABG pO2 ABG pO2 ABG HCO3 ABG O2 Saturation ABG Base Excess POC ABG pCO2 ABG Hemoglobin ABG Oxyhemoglobin ABG Sodium ABG Chloride ABG Glucose Oxyhemoglobin Sodium Potassium Chloride Carbon Dioxide BUN Creatinine 0.7 L Glucose 117 H POC Glucose 132 H Lactic Acid Calcium Phosphorus Magnesium AST ALT Lactate Dehydrogenase Total Bilirubin Direct Bilirubin CK-MB (CK-2) C-Reactive Protein NT-Pro-B Natriuret Pep Total Protein Albumin Arterial Blood Glucose Urine WBC (Auto) Urine Creatinine Digoxin 01/09/20 01/09/20 01/09/20 04:11 05:38 22:58 WBC RBC Hgb Hct MCHC RDW MCV MCH Lymph % (Auto) [place] % (Auto) [place] # Eos # Lymph # (Auto) [place] # (Auto) Eos # (Auto) Seg Neutrophils % Seg Neuts % (Manual) Baso # (Auto) Lymphocytes % (Manual) Monocytes % (Manual) Eosinophils % (Manual) Basophils % (Manual) Seg Neutrophils # Seg Neutrophils # Man Lymphocytes # (Manual) Monocytes # (Manual) Eosinophils # (Manual) Nucleated RBC % Basophils # (Manual) PT INR APTT Heparin Anti-Xa Level ABG pH POC ABG pO2 ABG pO2 ABG HCO3 ABG O2 Saturation ABG Base Excess POC ABG pCO2 ABG Hemoglobin ABG Oxyhemoglobin ABG Sodium ABG Chloride ABG Glucose Oxyhemoglobin Sodium 147 H Potassium 3.3 L D Chloride Carbon Dioxide 32 H BUN Creatinine 0.6 L Glucose 106 H POC Glucose 107 H 113 H Lactic Acid Calcium Phosphorus Magnesium AST ALT Lactate Dehydrogenase Total Bilirubin Direct Bilirubin CK-MB (CK-2) C-Reactive Protein NT-Pro-B Natriuret Pep Total Protein Albumin Arterial Blood Glucose Urine WBC (Auto) Urine Creatinine Digoxin 01/10/20 01/10/20 01/10/20 04:05 11:36 17:54 WBC RBC Hgb Hct MCHC RDW MCV MCH Lymph % (Auto) [place] % (Auto) [place] # Eos # Lymph # (Auto) [place] # (Auto) Eos # (Auto) Seg Neutrophils % Seg Neuts % (Manual) Baso # (Auto) Lymphocytes % (Manual) Monocytes % (Manual) Eosinophils % (Manual) Basophils % (Manual) Seg Neutrophils # Seg Neutrophils # Man Lymphocytes # (Manual) Monocytes # (Manual) Eosinophils # (Manual) Nucleated RBC % Basophils # (Manual) PT INR APTT Heparin Anti-Xa Level ABG pH POC ABG pO2 ABG pO2 ABG HCO3 ABG O2 Saturation ABG Base Excess POC ABG pCO2 ABG Hemoglobin ABG Oxyhemoglobin ABG Sodium ABG Chloride ABG Glucose Oxyhemoglobin Sodium Potassium Chloride Carbon Dioxide BUN Creatinine 0.7 L Glucose 110 H POC Glucose 129 H 117 H Lactic Acid Calcium Phosphorus Magnesium AST ALT Lactate Dehydrogenase Total Bilirubin Direct Bilirubin CK-MB (CK-2) C-Reactive Protein NT-Pro-B Natriuret Pep Total Protein Albumin Arterial Blood Glucose Urine WBC (Auto) Urine Creatinine Digoxin 01/10/20 01/11/20 01/11/20 23:52 03:19 12:09 WBC RBC Hgb Hct MCHC RDW MCV MCH Lymph % (Auto) [place] % (Auto) [place] # Eos # Lymph # (Auto) [place] # (Auto) Eos # (Auto) Seg Neutrophils % Seg Neuts % (Manual) Baso # (Auto) Lymphocytes % (Manual) Monocytes % (Manual) Eosinophils % (Manual) Basophils % (Manual) Seg Neutrophils # Seg Neutrophils # Man Lymphocytes # (Manual) Monocytes # (Manual) Eosinophils # (Manual) Nucleated RBC % Basophils # (Manual) PT INR APTT Heparin Anti-Xa Level ABG pH POC ABG pO2 ABG pO2 ABG HCO3 ABG O2 Saturation ABG Base Excess POC ABG pCO2 ABG Hemoglobin ABG Oxyhemoglobin ABG Sodium ABG Chloride ABG Glucose Oxyhemoglobin Sodium Potassium Chloride Carbon Dioxide BUN Creatinine Glucose POC Glucose 117 H 136 H 115 H Lactic Acid Calcium Phosphorus Magnesium AST ALT Lactate Dehydrogenase Total Bilirubin Direct Bilirubin CK-MB (CK-2) C-Reactive Protein NT-Pro-B Natriuret Pep Total Protein Albumin Arterial Blood Glucose Urine WBC (Auto) Urine Creatinine Digoxin 01/11/20 01/11/20 01/12/20 18:27 23:28 00:23 WBC RBC Hgb 9.8 L Hct 31.6 L MCHC 31 L RDW 17.8 H MCV 83 L MCH 26 L Lymph % (Auto) [place] % (Auto) 8.0 H [place] # Eos # Lymph # (Auto) [place] # (Auto) Eos # (Auto) Seg Neutrophils % Seg Neuts % (Manual) Baso # (Auto) Lymphocytes % (Manual) Monocytes % (Manual) Eosinophils % (Manual) Basophils % (Manual) Seg Neutrophils # Seg Neutrophils # Man Lymphocytes # (Manual) Monocytes # (Manual) Eosinophils # (Manual) Nucleated RBC % Basophils # (Manual) PT INR APTT Heparin Anti-Xa Level ABG pH POC ABG pO2 ABG pO2 ABG HCO3 ABG O2 Saturation ABG Base Excess POC ABG pCO2 ABG Hemoglobin ABG Oxyhemoglobin ABG Sodium ABG Chloride ABG Glucose Oxyhemoglobin Sodium Potassium Chloride Carbon Dioxide BUN Creatinine Glucose POC Glucose 118 H 122 H Lactic Acid Calcium Phosphorus Magnesium AST ALT Lactate Dehydrogenase Total Bilirubin Direct Bilirubin CK-MB (CK-2) C-Reactive Protein NT-Pro-B Natriuret Pep Total Protein Albumin Arterial Blood Glucose Urine WBC (Auto) Urine Creatinine Digoxin 01/12/20 01/12/20 01/12/20 00:23 04:18 04:18 WBC RBC Hgb 9.6 L Hct 30.9 L MCHC 31 L RDW 17.3 H MCV 81 L MCH 25 L Lymph % (Auto) [place] % (Auto) [place] # Eos # Lymph # (Auto) [place] # (Auto) Eos # (Auto) Seg Neutrophils % Seg Neuts % (Manual) Baso # (Auto) Lymphocytes % (Manual) Monocytes % (Manual) Eosinophils % (Manual) Basophils % (Manual) Seg Neutrophils # Seg Neutrophils # Man Lymphocytes # (Manual) Monocytes # (Manual) Eosinophils # (Manual) Nucleated RBC % Basophils # (Manual) PT INR APTT Heparin Anti-Xa Level ABG pH POC ABG pO2 ABG pO2 ABG HCO3 ABG O2 Saturation ABG Base Excess POC ABG pCO2 ABG Hemoglobin ABG Oxyhemoglobin ABG Sodium ABG Chloride ABG Glucose Oxyhemoglobin Sodium Potassium Chloride Carbon Dioxide BUN Creatinine 0.7 L 0.7 L Glucose 111 H 108 H POC Glucose Lactic Acid Calcium Phosphorus Magnesium AST ALT Lactate Dehydrogenase Total Bilirubin Direct Bilirubin CK-MB (CK-2) C-Reactive Protein NT-Pro-B Natriuret Pep Total Protein Albumin 2.6 L Arterial Blood Glucose Urine WBC (Auto) Urine Creatinine Digoxin 01/12/20 01/12/20 01/12/20 06:03 12:27 13:58 WBC RBC Hgb Hct MCHC RDW MCV MCH Lymph % (Auto) [place] % (Auto) [place] # Eos # Lymph # (Auto) [place] # (Auto) Eos # (Auto) Seg Neutrophils % Seg Neuts % (Manual) Baso # (Auto) Lymphocytes % (Manual) Monocytes % (Manual) Eosinophils % (Manual) Basophils % (Manual) Seg Neutrophils # Seg Neutrophils # Man Lymphocytes # (Manual) Monocytes # (Manual) Eosinophils # (Manual) Nucleated RBC % Basophils # (Manual) PT INR APTT Heparin Anti-Xa Level ABG pH 7.453 H POC ABG pO2 76.6 L ABG pO2 ABG HCO3 ABG O2 Saturation ABG Base Excess POC ABG pCO2 ABG Hemoglobin 10.3 L ABG Oxyhemoglobin ABG Sodium ABG Chloride ABG Glucose 99 H Oxyhemoglobin Sodium Potassium Chloride Carbon Dioxide BUN Creatinine Glucose POC Glucose 128 H 121 H Lactic Acid Calcium Phosphorus Magnesium AST ALT Lactate Dehydrogenase Total Bilirubin Direct Bilirubin CK-MB (CK-2) C-Reactive Protein NT-Pro-B Natriuret Pep Total Protein Albumin Arterial Blood Glucose 99 H Urine WBC (Auto) Urine Creatinine Digoxin 01/12/20 01/13/20 01/13/20 18:24 12:01 17:46 WBC RBC Hgb Hct MCHC RDW MCV MCH Lymph % (Auto) [place] % (Auto) [place] # Eos # Lymph # (Auto) [place] # (Auto) Eos # (Auto) Seg Neutrophils % Seg Neuts % (Manual) Baso # (Auto) Lymphocytes % (Manual) Monocytes % (Manual) Eosinophils % (Manual) Basophils % (Manual) Seg Neutrophils # Seg Neutrophils # Man Lymphocytes # (Manual) Monocytes # (Manual) Eosinophils # (Manual) Nucleated RBC % Basophils # (Manual) PT INR APTT Heparin Anti-Xa Level ABG pH POC ABG pO2 ABG pO2 ABG HCO3 ABG O2 Saturation ABG Base Excess POC ABG pCO2 ABG Hemoglobin ABG Oxyhemoglobin ABG Sodium ABG Chloride ABG Glucose Oxyhemoglobin Sodium Potassium Chloride Carbon Dioxide BUN Creatinine Glucose POC Glucose 119 H 107 H 124 H Lactic Acid Calcium Phosphorus Magnesium AST ALT Lactate Dehydrogenase Total Bilirubin Direct Bilirubin CK-MB (CK-2) C-Reactive Protein NT-Pro-B Natriuret Pep Total Protein Albumin Arterial Blood Glucose Urine WBC (Auto) Urine Creatinine Digoxin 01/13/20 01/14/20 01/14/20 20:40 00:10 05:33 WBC RBC Hgb Hct MCHC RDW MCV MCH Lymph % (Auto) [place] % (Auto) [place] # Eos # Lymph # (Auto) [place] # (Auto) Eos # (Auto) Seg Neutrophils % Seg Neuts % (Manual) Baso # (Auto) Lymphocytes % (Manual) Monocytes % (Manual) Eosinophils % (Manual) Basophils % (Manual) Seg Neutrophils # Seg Neutrophils # Man Lymphocytes # (Manual) Monocytes # (Manual) Eosinophils # (Manual) Nucleated RBC % Basophils # (Manual) PT INR APTT Heparin Anti-Xa Level ABG pH POC ABG pO2 ABG pO2 65.3 L ABG HCO3 31.8 H ABG O2 Saturation 93.5 L ABG Base Excess 6.7 H POC ABG pCO2 ABG Hemoglobin 13.3 L ABG Oxyhemoglobin ABG Sodium ABG Chloride ABG Glucose Oxyhemoglobin 90.9 L Sodium Potassium Chloride Carbon Dioxide BUN Creatinine Glucose POC Glucose 111 H 111 H Lactic Acid Calcium Phosphorus Magnesium AST ALT Lactate Dehydrogenase Total Bilirubin Direct Bilirubin CK-MB (CK-2) C-Reactive Protein NT-Pro-B Natriuret Pep Total Protein Albumin Arterial Blood Glucose Urine WBC (Auto) Urine Creatinine Digoxin 01/14/20 01/14/20 01/14/20 12:10 16:14 16:14 WBC RBC Hgb 10.6 L Hct 34.2 L MCHC 31 L RDW 18.3 H MCV 83 L MCH 26 L Lymph % (Auto) [place] % (Auto) 7.4 H [place] # Eos # Lymph # (Auto) [place] # (Auto) Eos # (Auto) Seg Neutrophils % 71.9 H Seg Neuts % (Manual) Baso # (Auto) Lymphocytes % (Manual) Monocytes % (Manual) Eosinophils % (Manual) Basophils % (Manual) Seg Neutrophils # Seg Neutrophils # Man Lymphocytes # (Manual) Monocytes # (Manual) Eosinophils # (Manual) Nucleated RBC % Basophils # (Manual) PT INR APTT Heparin Anti-Xa Level ABG pH POC ABG pO2 ABG pO2 ABG HCO3 ABG O2 Saturation ABG Base Excess POC ABG pCO2 ABG Hemoglobin ABG Oxyhemoglobin ABG Sodium ABG Chloride ABG Glucose Oxyhemoglobin Sodium Potassium Chloride Carbon Dioxide 31 H BUN Creatinine 0.6 L Glucose 131 H POC Glucose 139 H Lactic Acid Calcium Phosphorus Magnesium AST ALT Lactate Dehydrogenase Total Bilirubin Direct Bilirubin CK-MB (CK-2) C-Reactive Protein NT-Pro-B Natriuret Pep Total Protein Albumin Arterial Blood Glucose Urine WBC (Auto) Urine Creatinine Digoxin 01/14/20 01/15/20 01/15/20 18:05 00:52 05:35 WBC RBC Hgb Hct MCHC RDW MCV MCH Lymph % (Auto) [place] % (Auto) [place] # Eos # Lymph # (Auto) [place] # (Auto) Eos # (Auto) Seg Neutrophils % Seg Neuts % (Manual) Baso # (Auto) Lymphocytes % (Manual) Monocytes % (Manual) Eosinophils % (Manual) Basophils % (Manual) Seg Neutrophils # Seg Neutrophils # Man Lymphocytes # (Manual) Monocytes # (Manual) Eosinophils # (Manual) Nucleated RBC % Basophils # (Manual) PT INR APTT Heparin Anti-Xa Level ABG pH POC ABG pO2 ABG pO2 ABG HCO3 ABG O2 Saturation ABG Base Excess POC ABG pCO2 ABG Hemoglobin ABG Oxyhemoglobin ABG Sodium ABG Chloride ABG Glucose Oxyhemoglobin Sodium Potassium Chloride Carbon Dioxide BUN Creatinine Glucose POC Glucose 147 H 140 H 159 H Lactic Acid Calcium Phosphorus Magnesium AST ALT Lactate Dehydrogenase Total Bilirubin Direct Bilirubin CK-MB (CK-2) C-Reactive Protein NT-Pro-B Natriuret Pep Total Protein Albumin Arterial Blood Glucose Urine WBC (Auto) Urine Creatinine Digoxin 01/15/20 01/15/20 01/16/20 12:52 17:43 00:32 WBC RBC Hgb Hct MCHC RDW MCV MCH Lymph % (Auto) [place] % (Auto) [place] # Eos # Lymph # (Auto) [place] # (Auto) Eos # (Auto) Seg Neutrophils % Seg Neuts % (Manual) Baso # (Auto) Lymphocytes % (Manual) Monocytes % (Manual) Eosinophils % (Manual) Basophils % (Manual) Seg Neutrophils # Seg Neutrophils # Man Lymphocytes # (Manual) Monocytes # (Manual) Eosinophils # (Manual) Nucleated RBC % Basophils # (Manual) PT INR APTT Heparin Anti-Xa Level ABG pH POC ABG pO2 ABG pO2 ABG HCO3 ABG O2 Saturation ABG Base Excess POC ABG pCO2 ABG Hemoglobin ABG Oxyhemoglobin ABG Sodium ABG Chloride ABG Glucose Oxyhemoglobin Sodium Potassium Chloride Carbon Dioxide BUN Creatinine Glucose POC Glucose 164 H 167 H 153 H Lactic Acid Calcium Phosphorus Magnesium AST ALT Lactate Dehydrogenase Total Bilirubin Direct Bilirubin CK-MB (CK-2) C-Reactive Protein NT-Pro-B Natriuret Pep Total Protein Albumin Arterial Blood Glucose Urine WBC (Auto) Urine Creatinine Digoxin 01/16/20 01/16/20 01/17/20 05:46 11:48 06:38 WBC RBC Hgb Hct MCHC RDW MCV MCH Lymph % (Auto) [place] % (Auto) [place] # Eos # Lymph # (Auto) [place] # (Auto) Eos # (Auto) Seg Neutrophils % Seg Neuts % (Manual) Baso # (Auto) Lymphocytes % (Manual) Monocytes % (Manual) Eosinophils % (Manual) Basophils % (Manual) Seg Neutrophils # Seg Neutrophils # Man Lymphocytes # (Manual) Monocytes # (Manual) Eosinophils # (Manual) Nucleated RBC % Basophils # (Manual) PT INR APTT Heparin Anti-Xa Level ABG pH POC ABG pO2 ABG pO2 ABG HCO3 ABG O2 Saturation ABG Base Excess POC ABG pCO2 ABG Hemoglobin ABG Oxyhemoglobin ABG Sodium ABG Chloride ABG Glucose Oxyhemoglobin Sodium Potassium Chloride Carbon Dioxide BUN Creatinine Glucose POC Glucose 163 H 155 H 116 H Lactic Acid Calcium Phosphorus Magnesium AST ALT Lactate Dehydrogenase Total Bilirubin Direct Bilirubin CK-MB (CK-2) C-Reactive Protein NT-Pro-B Natriuret Pep Total Protein Albumin Arterial Blood Glucose Urine WBC (Auto) Urine Creatinine Digoxin 01/17/20 01/17/20 01/18/20 11:36 17:43 00:12 WBC RBC Hgb Hct MCHC RDW MCV MCH Lymph % (Auto) [place] % (Auto) [place] # Eos # Lymph # (Auto) [place] # (Auto) Eos # (Auto) Seg Neutrophils % Seg Neuts % (Manual) Baso # (Auto) Lymphocytes % (Manual) Monocytes % (Manual) Eosinophils % (Manual) Basophils % (Manual) Seg Neutrophils # Seg Neutrophils # Man Lymphocytes # (Manual) Monocytes # (Manual) Eosinophils # (Manual) Nucleated RBC % Basophils # (Manual) PT INR APTT Heparin Anti-Xa Level ABG pH POC ABG pO2 ABG pO2 ABG HCO3 ABG O2 Saturation ABG Base Excess POC ABG pCO2 ABG Hemoglobin ABG Oxyhemoglobin ABG Sodium ABG Chloride ABG Glucose Oxyhemoglobin Sodium Potassium Chloride Carbon Dioxide BUN Creatinine Glucose POC Glucose 110 H 134 H 108 H Lactic Acid Calcium Phosphorus Magnesium AST ALT Lactate Dehydrogenase Total Bilirubin Direct Bilirubin CK-MB (CK-2) C-Reactive Protein NT-Pro-B Natriuret Pep Total Protein Albumin Arterial Blood Glucose Urine WBC (Auto) Urine Creatinine Digoxin 01/18/20 01/18/20 01/18/20 05:37 06:46 06:46 WBC RBC Hgb 10.1 L Hct 32.2 L MCHC 31 L RDW 18.1 H MCV 81 L MCH 25 L Lymph % (Auto) [place] % (Auto) [place] # Eos # Lymph # (Auto) [place] # (Auto) Eos # (Auto) Seg Neutrophils % 71.9 H Seg Neuts % (Manual) Baso # (Auto) Lymphocytes % (Manual) Monocytes % (Manual) Eosinophils % (Manual) Basophils % (Manual) Seg Neutrophils # Seg Neutrophils # Man Lymphocytes # (Manual) Monocytes # (Manual) Eosinophils # (Manual) Nucleated RBC % Basophils # (Manual) PT INR APTT Heparin Anti-Xa Level ABG pH POC ABG pO2 ABG pO2 ABG HCO3 ABG O2 Saturation ABG Base Excess POC ABG pCO2 ABG Hemoglobin ABG Oxyhemoglobin ABG Sodium ABG Chloride ABG Glucose Oxyhemoglobin Sodium Potassium Chloride Carbon Dioxide BUN Creatinine 0.7 L Glucose 155 H POC Glucose 168 H Lactic Acid Calcium Phosphorus Magnesium AST ALT Lactate Dehydrogenase Total Bilirubin Direct Bilirubin CK-MB (CK-2) C-Reactive Protein NT-Pro-B Natriuret Pep Total Protein Albumin Arterial Blood Glucose Urine WBC (Auto) Urine Creatinine Digoxin 01/18/20 01/18/20 01/18/20 12:05 17:14 23:28 WBC RBC Hgb Hct MCHC RDW MCV MCH Lymph % (Auto) [place] % (Auto) [place] # Eos # Lymph # (Auto) [place] # (Auto) Eos # (Auto) Seg Neutrophils % Seg Neuts % (Manual) Baso # (Auto) Lymphocytes % (Manual) Monocytes % (Manual) Eosinophils % (Manual) Basophils % (Manual) Seg Neutrophils # Seg Neutrophils # Man Lymphocytes # (Manual) Monocytes # (Manual) Eosinophils # (Manual) Nucleated RBC % Basophils # (Manual) PT INR APTT Heparin Anti-Xa Level ABG pH POC ABG pO2 ABG pO2 ABG HCO3 ABG O2 Saturation ABG Base Excess POC ABG pCO2 ABG Hemoglobin ABG Oxyhemoglobin ABG Sodium ABG Chloride ABG Glucose Oxyhemoglobin Sodium Potassium Chloride Carbon Dioxide BUN Creatinine Glucose POC Glucose 128 H 126 H 128 H Lactic Acid Calcium Phosphorus Magnesium AST ALT Lactate Dehydrogenase Total Bilirubin Direct Bilirubin CK-MB (CK-2) C-Reactive Protein NT-Pro-B Natriuret Pep Total Protein Albumin Arterial Blood Glucose Urine WBC (Auto) Urine Creatinine Digoxin 01/19/20 01/19/20 01/19/20 05:39 12:33 17:36 WBC RBC Hgb Hct MCHC RDW MCV MCH Lymph % (Auto) [place] % (Auto) [place] # Eos # Lymph # (Auto) [place] # (Auto) Eos # (Auto) Seg Neutrophils % Seg Neuts % (Manual) Baso # (Auto) Lymphocytes % (Manual) Monocytes % (Manual) Eosinophils % (Manual) Basophils % (Manual) Seg Neutrophils # Seg Neutrophils # Man Lymphocytes # (Manual) Monocytes # (Manual) Eosinophils # (Manual) Nucleated RBC % Basophils # (Manual) PT INR APTT Heparin Anti-Xa Level ABG pH POC ABG pO2 ABG pO2 ABG HCO3 ABG O2 Saturation ABG Base Excess POC ABG pCO2 ABG Hemoglobin ABG Oxyhemoglobin ABG Sodium ABG Chloride ABG Glucose Oxyhemoglobin Sodium Potassium Chloride Carbon Dioxide BUN Creatinine Glucose POC Glucose 164 H 171 H 152 H Lactic Acid Calcium Phosphorus Magnesium AST ALT Lactate Dehydrogenase Total Bilirubin Direct Bilirubin CK-MB (CK-2) C-Reactive Protein NT-Pro-B Natriuret Pep Total Protein Albumin Arterial Blood Glucose Urine WBC (Auto) Urine Creatinine Digoxin 01/20/20 01/20/20 01/20/20 00:12 05:20 05:35 WBC RBC Hgb 9.2 L Hct 29.4 L MCHC 31 L RDW 17.9 H MCV 81 L MCH 25 L Lymph % (Auto) [place] % (Auto) [place] # Eos # Lymph # (Auto) [place] # (Auto) Eos # (Auto) Seg Neutrophils % Seg Neuts % (Manual) Baso # (Auto) Lymphocytes % (Manual) Monocytes % (Manual) Eosinophils % (Manual) Basophils % (Manual) Seg Neutrophils # Seg Neutrophils # Man Lymphocytes # (Manual) Monocytes # (Manual) Eosinophils # (Manual) Nucleated RBC % Basophils # (Manual) PT INR APTT Heparin Anti-Xa Level ABG pH POC ABG pO2 ABG pO2 ABG HCO3 ABG O2 Saturation ABG Base Excess POC ABG pCO2 ABG Hemoglobin ABG Oxyhemoglobin ABG Sodium ABG Chloride ABG Glucose Oxyhemoglobin Sodium Potassium Chloride Carbon Dioxide BUN Creatinine Glucose POC Glucose 120 H 136 H Lactic Acid Calcium Phosphorus Magnesium AST ALT Lactate Dehydrogenase Total Bilirubin Direct Bilirubin CK-MB (CK-2) C-Reactive Protein NT-Pro-B Natriuret Pep Total Protein Albumin Arterial Blood Glucose Urine WBC (Auto) Urine Creatinine Digoxin 01/20/20 01/20/20 01/20/20 05:40 11:58 14:55 WBC RBC Hgb 9.0 L Hct 28.3 L MCHC RDW MCV MCH Lymph % (Auto) [place] % (Auto) [place] # Eos # Lymph # (Auto) [place] # (Auto) Eos # (Auto) Seg Neutrophils % Seg Neuts % (Manual) Baso # (Auto) Lymphocytes % (Manual) Monocytes % (Manual) Eosinophils % (Manual) Basophils % (Manual) Seg Neutrophils # Seg Neutrophils # Man Lymphocytes # (Manual) Monocytes # (Manual) Eosinophils # (Manual) Nucleated RBC % Basophils # (Manual) PT INR APTT Heparin Anti-Xa Level ABG pH POC ABG pO2 ABG pO2 ABG HCO3 ABG O2 Saturation ABG Base Excess POC ABG pCO2 ABG Hemoglobin ABG Oxyhemoglobin ABG Sodium ABG Chloride ABG Glucose Oxyhemoglobin Sodium Potassium Chloride Carbon Dioxide 32 H BUN 22 H Creatinine 0.7 L Glucose 128 H POC Glucose 152 H Lactic Acid Calcium Phosphorus Magnesium AST ALT Lactate Dehydrogenase Total Bilirubin Direct Bilirubin CK-MB (CK-2) C-Reactive Protein NT-Pro-B Natriuret Pep Total Protein Albumin Arterial Blood Glucose Urine WBC (Auto) Urine Creatinine Digoxin 01/20/20 01/20/20 01/20/20 14:55 18:14 21:35 WBC RBC Hgb Hct MCHC RDW MCV MCH Lymph % (Auto) [place] % (Auto) [place] # Eos # Lymph # (Auto) [place] # (Auto) Eos # (Auto) Seg Neutrophils % Seg Neuts % (Manual) Baso # (Auto) Lymphocytes % (Manual) Monocytes % (Manual) Eosinophils % (Manual) Basophils % (Manual) Seg Neutrophils # Seg Neutrophils # Man Lymphocytes # (Manual) Monocytes # (Manual) Eosinophils # (Manual) Nucleated RBC % Basophils # (Manual) PT 20.4 H INR 1.72 H APTT 40.6 H Heparin Anti-Xa Level > 2.00 H ABG pH POC ABG pO2 ABG pO2 ABG HCO3 ABG O2 Saturation ABG Base Excess POC ABG pCO2 ABG Hemoglobin ABG Oxyhemoglobin ABG Sodium ABG Chloride ABG Glucose Oxyhemoglobin Sodium Potassium Chloride Carbon Dioxide BUN Creatinine Glucose POC Glucose 150 H Lactic Acid Calcium Phosphorus Magnesium AST ALT Lactate Dehydrogenase Total Bilirubin Direct Bilirubin CK-MB (CK-2) C-Reactive Protein NT-Pro-B Natriuret Pep Total Protein Albumin Arterial Blood Glucose Urine WBC (Auto) Urine Creatinine Digoxin 01/21/20 01/21/20 01/21/20 00:30 05:47 05:59 WBC RBC Hgb Hct MCHC RDW MCV MCH Lymph % (Auto) [place] % (Auto) [place] # Eos # Lymph # (Auto) [place] # (Auto) Eos # (Auto) Seg Neutrophils % Seg Neuts % (Manual) Baso # (Auto) Lymphocytes % (Manual) Monocytes % (Manual) Eosinophils % (Manual) Basophils % (Manual) Seg Neutrophils # Seg Neutrophils # Man Lymphocytes # (Manual) Monocytes # (Manual) Eosinophils # (Manual) Nucleated RBC % Basophils # (Manual) PT INR APTT Heparin Anti-Xa Level 1.93 H ABG pH POC ABG pO2 ABG pO2 ABG HCO3 ABG O2 Saturation ABG Base Excess POC ABG pCO2 ABG Hemoglobin ABG Oxyhemoglobin ABG Sodium ABG Chloride ABG Glucose Oxyhemoglobin Sodium Potassium Chloride Carbon Dioxide BUN Creatinine Glucose POC Glucose 126 H 148 H Lactic Acid Calcium Phosphorus Magnesium AST ALT Lactate Dehydrogenase Total Bilirubin Direct Bilirubin CK-MB (CK-2) C-Reactive Protein NT-Pro-B Natriuret Pep Total Protein Albumin Arterial Blood Glucose Urine WBC (Auto) Urine Creatinine Digoxin 01/21/20 01/21/20 01/21/20 12:32 18:20 23:54 WBC RBC Hgb Hct MCHC RDW MCV MCH Lymph % (Auto) [place] % (Auto) [place] # Eos # Lymph # (Auto) [place] # (Auto) Eos # (Auto) Seg Neutrophils % Seg Neuts % (Manual) Baso # (Auto) Lymphocytes % (Manual) Monocytes % (Manual) Eosinophils % (Manual) Basophils % (Manual) Seg Neutrophils # Seg Neutrophils # Man Lymphocytes # (Manual) Monocytes # (Manual) Eosinophils # (Manual) Nucleated RBC % Basophils # (Manual) PT INR APTT Heparin Anti-Xa Level 1.28 H ABG pH POC ABG pO2 ABG pO2 ABG HCO3 ABG O2 Saturation ABG Base Excess POC ABG pCO2 ABG Hemoglobin ABG Oxyhemoglobin ABG Sodium ABG Chloride ABG Glucose Oxyhemoglobin Sodium Potassium Chloride Carbon Dioxide BUN Creatinine Glucose POC Glucose 112 H 146 H Lactic Acid Calcium Phosphorus Magnesium AST ALT Lactate Dehydrogenase Total Bilirubin Direct Bilirubin CK-MB (CK-2) C-Reactive Protein NT-Pro-B Natriuret Pep Total Protein Albumin Arterial Blood Glucose Urine WBC (Auto) Urine Creatinine Digoxin 01/22/20 01/22/20 01/22/20 04:45 04:45 05:48 WBC RBC Hgb 9.3 L Hct 29.0 L MCHC RDW MCV MCH Lymph % (Auto) [place] % (Auto) [place] # Eos # Lymph # (Auto) [place] # (Auto) Eos # (Auto) Seg Neutrophils % Seg Neuts % (Manual) Baso # (Auto) Lymphocytes % (Manual) Monocytes % (Manual) Eosinophils % (Manual) Basophils % (Manual) Seg Neutrophils # Seg Neutrophils # Man Lymphocytes # (Manual) Monocytes # (Manual) Eosinophils # (Manual) Nucleated RBC % Basophils # (Manual) PT INR APTT Heparin Anti-Xa Level 1.34 H ABG pH POC ABG pO2 ABG pO2 ABG HCO3 ABG O2 Saturation ABG Base Excess POC ABG pCO2 ABG Hemoglobin ABG Oxyhemoglobin ABG Sodium ABG Chloride ABG Glucose Oxyhemoglobin Sodium Potassium Chloride Carbon Dioxide BUN Creatinine Glucose POC Glucose 142 H Lactic Acid Calcium Phosphorus Magnesium AST ALT Lactate Dehydrogenase Total Bilirubin Direct Bilirubin CK-MB (CK-2) C-Reactive Protein NT-Pro-B Natriuret Pep Total Protein Albumin Arterial Blood Glucose Urine WBC (Auto) Urine Creatinine Digoxin 01/22/20 01/22/20 01/22/20 08:09 08:22 09:58 WBC RBC Hgb Hct MCHC RDW MCV MCH Lymph % (Auto) [place] % (Auto) [place] # Eos # Lymph # (Auto) [place] # (Auto) Eos # (Auto) Seg Neutrophils % Seg Neuts % (Manual) Baso # (Auto) Lymphocytes % (Manual) Monocytes % (Manual) Eosinophils % (Manual) Basophils % (Manual) Seg Neutrophils # Seg Neutrophils # Man Lymphocytes # (Manual) Monocytes # (Manual) Eosinophils # (Manual) Nucleated RBC % Basophils # (Manual) PT 16.9 H INR 1.34 H APTT Heparin Anti-Xa Level ABG pH POC ABG pO2 ABG pO2 ABG HCO3 ABG O2 Saturation ABG Base Excess POC ABG pCO2 ABG Hemoglobin ABG Oxyhemoglobin ABG Sodium ABG Chloride ABG Glucose Oxyhemoglobin Sodium Potassium Chloride 97.8 L Carbon Dioxide BUN 29 H Creatinine Glucose 128 H POC Glucose 131 H Lactic Acid Calcium Phosphorus Magnesium AST ALT Lactate Dehydrogenase Total Bilirubin Direct Bilirubin CK-MB (CK-2) C-Reactive Protein NT-Pro-B Natriuret Pep Total Protein Albumin Arterial Blood Glucose Urine WBC (Auto) Urine Creatinine Digoxin 01/22/20 01/22/20 01/22/20 12:44 16:13 18:18 WBC RBC Hgb Hct MCHC RDW MCV MCH Lymph % (Auto) [place] % (Auto) [place] # Eos # Lymph # (Auto) [place] # (Auto) Eos # (Auto) Seg Neutrophils % Seg Neuts % (Manual) Baso # (Auto) Lymphocytes % (Manual) Monocytes % (Manual) Eosinophils % (Manual) Basophils % (Manual) Seg Neutrophils # Seg Neutrophils # Man Lymphocytes # (Manual) Monocytes # (Manual) Eosinophils # (Manual) Nucleated RBC % Basophils # (Manual) PT INR APTT Heparin Anti-Xa Level ABG pH POC ABG pO2 ABG pO2 ABG HCO3 ABG O2 Saturation ABG Base Excess POC ABG pCO2 ABG Hemoglobin ABG Oxyhemoglobin ABG Sodium ABG Chloride ABG Glucose Oxyhemoglobin Sodium Potassium Chloride Carbon Dioxide BUN Creatinine Glucose POC Glucose 156 H 133 H 155 H Lactic Acid Calcium Phosphorus Magnesium AST ALT Lactate Dehydrogenase Total Bilirubin Direct Bilirubin CK-MB (CK-2) C-Reactive Protein NT-Pro-B Natriuret Pep Total Protein Albumin Arterial Blood Glucose Urine WBC (Auto) Urine Creatinine Digoxin 01/22/20 01/23/20 01/23/20 23:22 05:37 12:59 WBC RBC Hgb Hct MCHC RDW MCV MCH Lymph % (Auto) [place] % (Auto) [place] # Eos # Lymph # (Auto) [place] # (Auto) Eos # (Auto) Seg Neutrophils % Seg Neuts % (Manual) Baso # (Auto) Lymphocytes % (Manual) Monocytes % (Manual) Eosinophils % (Manual) Basophils % (Manual) Seg Neutrophils # Seg Neutrophils # Man Lymphocytes # (Manual) Monocytes # (Manual) Eosinophils # (Manual) Nucleated RBC % Basophils # (Manual) PT INR APTT Heparin Anti-Xa Level ABG pH POC ABG pO2 ABG pO2 ABG HCO3 ABG O2 Saturation ABG Base Excess POC ABG pCO2 ABG Hemoglobin ABG Oxyhemoglobin ABG Sodium ABG Chloride ABG Glucose Oxyhemoglobin Sodium Potassium Chloride Carbon Dioxide BUN Creatinine Glucose POC Glucose 148 H 163 H 175 H Lactic Acid Calcium Phosphorus Magnesium AST ALT Lactate Dehydrogenase Total Bilirubin Direct Bilirubin CK-MB (CK-2) C-Reactive Protein NT-Pro-B Natriuret Pep Total Protein Albumin Arterial Blood Glucose Urine WBC (Auto) Urine Creatinine Digoxin 01/23/20 01/23/20 01/24/20 17:28 23:56 04:30 WBC RBC 3.46 L Hgb 8.8 L Hct 27.8 L MCHC RDW 18.2 H MCV 81 L MCH 25 L Lymph % (Auto) [place] % (Auto) 7.8 H [place] # Eos # Lymph # (Auto) [place] # (Auto) Eos # (Auto) Seg Neutrophils % Seg Neuts % (Manual) Baso # (Auto) Lymphocytes % (Manual) Monocytes % (Manual) Eosinophils % (Manual) Basophils % (Manual) Seg Neutrophils # Seg Neutrophils # Man Lymphocytes # (Manual) Monocytes # (Manual) Eosinophils # (Manual) Nucleated RBC % Basophils # (Manual) PT INR APTT Heparin Anti-Xa Level ABG pH POC ABG pO2 ABG pO2 ABG HCO3 ABG O2 Saturation ABG Base Excess POC ABG pCO2 ABG Hemoglobin ABG Oxyhemoglobin ABG Sodium ABG Chloride ABG Glucose Oxyhemoglobin Sodium Potassium Chloride Carbon Dioxide BUN Creatinine Glucose POC Glucose 165 H 177 H Lactic Acid Calcium Phosphorus Magnesium AST ALT Lactate Dehydrogenase Total Bilirubin Direct Bilirubin CK-MB (CK-2) C-Reactive Protein NT-Pro-B Natriuret Pep Total Protein Albumin Arterial Blood Glucose Urine WBC (Auto) Urine Creatinine Digoxin 01/24/20 01/24/20 01/24/20 04:30 07:18 12:06 WBC RBC Hgb Hct MCHC RDW MCV MCH Lymph % (Auto) [place] % (Auto) [place] # Eos # Lymph # (Auto) [place] # (Auto) Eos # (Auto) Seg Neutrophils % Seg Neuts % (Manual) Baso # (Auto) Lymphocytes % (Manual) Monocytes % (Manual) Eosinophils % (Manual) Basophils % (Manual) Seg Neutrophils # Seg Neutrophils # Man Lymphocytes # (Manual) Monocytes # (Manual) Eosinophils # (Manual) Nucleated RBC % Basophils # (Manual) PT INR APTT Heparin Anti-Xa Level ABG pH POC ABG pO2 ABG pO2 ABG HCO3 ABG O2 Saturation ABG Base Excess POC ABG pCO2 ABG Hemoglobin ABG Oxyhemoglobin ABG Sodium ABG Chloride ABG Glucose Oxyhemoglobin Sodium Potassium Chloride 97.9 L Carbon Dioxide BUN 31 H Creatinine Glucose 146 H POC Glucose 151 H 133 H Lactic Acid Calcium Phosphorus Magnesium AST ALT Lactate Dehydrogenase Total Bilirubin Direct Bilirubin CK-MB (CK-2) C-Reactive Protein NT-Pro-B Natriuret Pep Total Protein Albumin Arterial Blood Glucose Urine WBC (Auto) Urine Creatinine Digoxin 01/24/20 01/25/20 01/25/20 17:36 00:08 04:25 WBC RBC 3.50 L Hgb 8.7 L Hct 27.9 L MCHC 31 L RDW 18.2 H MCV 80 L MCH 25 L Lymph % (Auto) [place] % (Auto) 8.5 H [place] # Eos # Lymph # (Auto) [place] # (Auto) Eos # (Auto) Seg Neutrophils % Seg Neuts % (Manual) Baso # (Auto) Lymphocytes % (Manual) Monocytes % (Manual) Eosinophils % (Manual) Basophils % (Manual) Seg Neutrophils # Seg Neutrophils # Man Lymphocytes # (Manual) Monocytes # (Manual) Eosinophils # (Manual) Nucleated RBC % Basophils # (Manual) PT INR APTT Heparin Anti-Xa Level ABG pH POC ABG pO2 ABG pO2 ABG HCO3 ABG O2 Saturation ABG Base Excess POC ABG pCO2 ABG Hemoglobin ABG Oxyhemoglobin ABG Sodium ABG Chloride ABG Glucose Oxyhemoglobin Sodium Potassium Chloride Carbon Dioxide BUN Creatinine Glucose POC Glucose 133 H 129 H Lactic Acid Calcium Phosphorus Magnesium AST ALT Lactate Dehydrogenase Total Bilirubin Direct Bilirubin CK-MB (CK-2) C-Reactive Protein NT-Pro-B Natriuret Pep Total Protein Albumin Arterial Blood Glucose Urine WBC (Auto) Urine Creatinine Digoxin 01/25/20 01/25/20 01/25/20 04:25 05:38 11:52 WBC RBC Hgb Hct MCHC RDW MCV MCH Lymph % (Auto) [place] % (Auto) [place] # Eos # Lymph # (Auto) [place] # (Auto) Eos # (Auto) Seg Neutrophils % Seg Neuts % (Manual) Baso # (Auto) Lymphocytes % (Manual) Monocytes % (Manual) Eosinophils % (Manual) Basophils % (Manual) Seg Neutrophils # Seg Neutrophils # Man Lymphocytes # (Manual) Monocytes # (Manual) Eosinophils # (Manual) Nucleated RBC % Basophils # (Manual) PT INR APTT Heparin Anti-Xa Level ABG pH POC ABG pO2 ABG pO2 ABG HCO3 ABG O2 Saturation ABG Base Excess POC ABG pCO2 ABG Hemoglobin ABG Oxyhemoglobin ABG Sodium ABG Chloride ABG Glucose Oxyhemoglobin Sodium Potassium Chloride Carbon Dioxide BUN 30 H Creatinine Glucose 134 H POC Glucose 129 H 134 H Lactic Acid Calcium Phosphorus Magnesium AST ALT Lactate Dehydrogenase Total Bilirubin Direct Bilirubin CK-MB (CK-2) C-Reactive Protein NT-Pro-B Natriuret Pep Total Protein Albumin Arterial Blood Glucose Urine WBC (Auto) Urine Creatinine Digoxin 01/25/20 01/25/20 01/26/20 17:13 21:02 00:59 WBC RBC Hgb Hct MCHC RDW MCV MCH Lymph % (Auto) [place] % (Auto) [place] # Eos # Lymph # (Auto) [place] # (Auto) Eos # (Auto) Seg Neutrophils % Seg Neuts % (Manual) Baso # (Auto) Lymphocytes % (Manual) Monocytes % (Manual) Eosinophils % (Manual) Basophils % (Manual) Seg Neutrophils # Seg Neutrophils # Man Lymphocytes # (Manual) Monocytes # (Manual) Eosinophils # (Manual) Nucleated RBC % Basophils # (Manual) PT INR APTT Heparin Anti-Xa Level ABG pH POC ABG pO2 ABG pO2 57.5 L ABG HCO3 31.7 H ABG O2 Saturation 90.3 L ABG Base Excess 6.6 H POC ABG pCO2 ABG Hemoglobin 13.0 L ABG Oxyhemoglobin ABG Sodium ABG Chloride ABG Glucose Oxyhemoglobin 87.5 L Sodium Potassium Chloride Carbon Dioxide BUN Creatinine Glucose POC Glucose 124 H 196 H Lactic Acid Calcium Phosphorus Magnesium AST ALT Lactate Dehydrogenase Total Bilirubin Direct Bilirubin CK-MB (CK-2) C-Reactive Protein NT-Pro-B Natriuret Pep Total Protein Albumin Arterial Blood Glucose Urine WBC (Auto) Urine Creatinine Digoxin 01/26/20 01/26/20 01/26/20 03:20 05:46 12:46 WBC RBC Hgb 9.2 L Hct 29.4 L MCHC RDW MCV MCH Lymph % (Auto) [place] % (Auto) [place] # Eos # Lymph # (Auto) [place] # (Auto) Eos # (Auto) Seg Neutrophils % Seg Neuts % (Manual) Baso # (Auto) Lymphocytes % (Manual) Monocytes % (Manual) Eosinophils % (Manual) Basophils % (Manual) Seg Neutrophils # Seg Neutrophils # Man Lymphocytes # (Manual) Monocytes # (Manual) Eosinophils # (Manual) Nucleated RBC % Basophils # (Manual) PT INR APTT Heparin Anti-Xa Level ABG pH POC ABG pO2 ABG pO2 ABG HCO3 ABG O2 Saturation ABG Base Excess POC ABG pCO2 ABG Hemoglobin ABG Oxyhemoglobin ABG Sodium ABG Chloride ABG Glucose Oxyhemoglobin Sodium Potassium Chloride Carbon Dioxide BUN Creatinine Glucose POC Glucose 141 H 122 H Lactic Acid Calcium Phosphorus Magnesium AST ALT Lactate Dehydrogenase Total Bilirubin Direct Bilirubin CK-MB (CK-2) C-Reactive Protein NT-Pro-B Natriuret Pep Total Protein Albumin Arterial Blood Glucose Urine WBC (Auto) Urine Creatinine Digoxin 01/26/20 01/26/20 01/27/20 18:03 23:55 04:47 WBC RBC Hgb Hct MCHC RDW MCV MCH Lymph % (Auto) [place] % (Auto) [place] # Eos # Lymph # (Auto) [place] # (Auto) Eos # (Auto) Seg Neutrophils % Seg Neuts % (Manual) Baso # (Auto) Lymphocytes % (Manual) Monocytes % (Manual) Eosinophils % (Manual) Basophils % (Manual) Seg Neutrophils # Seg Neutrophils # Man Lymphocytes # (Manual) Monocytes # (Manual) Eosinophils # (Manual) Nucleated RBC % Basophils # (Manual) PT INR APTT Heparin Anti-Xa Level ABG pH POC ABG pO2 ABG pO2 ABG HCO3 ABG O2 Saturation ABG Base Excess POC ABG pCO2 ABG Hemoglobin ABG Oxyhemoglobin ABG Sodium ABG Chloride ABG Glucose Oxyhemoglobin Sodium Potassium Chloride Carbon Dioxide BUN 30 H Creatinine 0.7 L Glucose 135 H POC Glucose 142 H 159 H Lactic Acid Calcium Phosphorus Magnesium AST ALT Lactate Dehydrogenase Total Bilirubin Direct Bilirubin CK-MB (CK-2) C-Reactive Protein NT-Pro-B Natriuret Pep Total Protein Albumin Arterial Blood Glucose Urine WBC (Auto) Urine Creatinine Digoxin 01/27/20 01/27/20 01/27/20 05:43 12:06 17:16 WBC RBC Hgb Hct MCHC RDW MCV MCH Lymph % (Auto) [place] % (Auto) [place] # Eos # Lymph # (Auto) [place] # (Auto) Eos # (Auto) Seg Neutrophils % Seg Neuts % (Manual) Baso # (Auto) Lymphocytes % (Manual) Monocytes % (Manual) Eosinophils % (Manual) Basophils % (Manual) Seg Neutrophils # Seg Neutrophils # Man Lymphocytes # (Manual) Monocytes # (Manual) Eosinophils # (Manual) Nucleated RBC % Basophils # (Manual) PT INR APTT Heparin Anti-Xa Level ABG pH POC ABG pO2 ABG pO2 ABG HCO3 ABG O2 Saturation ABG Base Excess POC ABG pCO2 ABG Hemoglobin ABG Oxyhemoglobin ABG Sodium ABG Chloride ABG Glucose Oxyhemoglobin Sodium Potassium Chloride Carbon Dioxide BUN Creatinine Glucose POC Glucose 143 H 142 H 128 H Lactic Acid Calcium Phosphorus Magnesium AST ALT Lactate Dehydrogenase Total Bilirubin Direct Bilirubin CK-MB (CK-2) C-Reactive Protein NT-Pro-B Natriuret Pep Total Protein Albumin Arterial Blood Glucose Urine WBC (Auto) Urine Creatinine Digoxin 01/27/20 01/28/20 01/28/20 23:55 04:37 05:55 WBC RBC Hgb 9.4 L Hct 29.9 L MCHC RDW MCV MCH Lymph % (Auto) [place] % (Auto) [place] # Eos # Lymph # (Auto) [place] # (Auto) Eos # (Auto) Seg Neutrophils % Seg Neuts % (Manual) Baso # (Auto) Lymphocytes % (Manual) Monocytes % (Manual) Eosinophils % (Manual) Basophils % (Manual) Seg Neutrophils # Seg Neutrophils # Man Lymphocytes # (Manual) Monocytes # (Manual) Eosinophils # (Manual) Nucleated RBC % Basophils # (Manual) PT INR APTT Heparin Anti-Xa Level ABG pH POC ABG pO2 ABG pO2 ABG HCO3 ABG O2 Saturation ABG Base Excess POC ABG pCO2 ABG Hemoglobin ABG Oxyhemoglobin ABG Sodium ABG Chloride ABG Glucose Oxyhemoglobin Sodium Potassium Chloride Carbon Dioxide BUN Creatinine Glucose POC Glucose 166 H 169 H Lactic Acid Calcium Phosphorus Magnesium AST ALT Lactate Dehydrogenase Total Bilirubin Direct Bilirubin CK-MB (CK-2) C-Reactive Protein NT-Pro-B Natriuret Pep Total Protein Albumin Arterial Blood Glucose Urine WBC (Auto) Urine Creatinine Digoxin 01/28/20 01/28/20 01/28/20 11:58 17:26 23:46 WBC RBC Hgb Hct MCHC RDW MCV MCH Lymph % (Auto) [place] % (Auto) [place] # Eos # Lymph # (Auto) [place] # (Auto) Eos # (Auto) Seg Neutrophils % Seg Neuts % (Manual) Baso # (Auto) Lymphocytes % (Manual) Monocytes % (Manual) Eosinophils % (Manual) Basophils % (Manual) Seg Neutrophils # Seg Neutrophils # Man Lymphocytes # (Manual) Monocytes # (Manual) Eosinophils # (Manual) Nucleated RBC % Basophils # (Manual) PT INR APTT Heparin Anti-Xa Level ABG pH POC ABG pO2 ABG pO2 ABG HCO3 ABG O2 Saturation ABG Base Excess POC ABG pCO2 ABG Hemoglobin ABG Oxyhemoglobin ABG Sodium ABG Chloride ABG Glucose Oxyhemoglobin Sodium Potassium Chloride Carbon Dioxide BUN Creatinine Glucose POC Glucose 130 H 126 H 150 H Lactic Acid Calcium Phosphorus Magnesium AST ALT Lactate Dehydrogenase Total Bilirubin Direct Bilirubin CK-MB (CK-2) C-Reactive Protein NT-Pro-B Natriuret Pep Total Protein Albumin Arterial Blood Glucose Urine WBC (Auto) Urine Creatinine Digoxin 01/29/20 01/29/20 01/29/20 04:55 06:00 12:28 WBC RBC Hgb Hct MCHC RDW MCV MCH Lymph % (Auto) [place] % (Auto) [place] # Eos # Lymph # (Auto) [place] # (Auto) Eos # (Auto) Seg Neutrophils % Seg Neuts % (Manual) Baso # (Auto) Lymphocytes % (Manual) Monocytes % (Manual) Eosinophils % (Manual) Basophils % (Manual) Seg Neutrophils # Seg Neutrophils # Man Lymphocytes # (Manual) Monocytes # (Manual) Eosinophils # (Manual) Nucleated RBC % Basophils # (Manual) PT INR APTT Heparin Anti-Xa Level ABG pH POC ABG pO2 ABG pO2 ABG HCO3 ABG O2 Saturation ABG Base Excess POC ABG pCO2 ABG Hemoglobin ABG Oxyhemoglobin ABG Sodium ABG Chloride ABG Glucose Oxyhemoglobin Sodium Potassium Chloride Carbon Dioxide 34 H BUN Creatinine 0.6 L Glucose 152 H POC Glucose 157 H 156 H Lactic Acid Calcium Phosphorus Magnesium AST ALT Lactate Dehydrogenase Total Bilirubin Direct Bilirubin CK-MB (CK-2) C-Reactive Protein NT-Pro-B Natriuret Pep Total Protein Albumin Arterial Blood Glucose Urine WBC (Auto) Urine Creatinine Digoxin 01/29/20 01/30/20 01/30/20 19:06 00:29 05:39 WBC RBC Hgb Hct MCHC RDW MCV MCH Lymph % (Auto) [place] % (Auto) [place] # Eos # Lymph # (Auto) [place] # (Auto) Eos # (Auto) Seg Neutrophils % Seg Neuts % (Manual) Baso # (Auto) Lymphocytes % (Manual) Monocytes % (Manual) Eosinophils % (Manual) Basophils % (Manual) Seg Neutrophils # Seg Neutrophils # Man Lymphocytes # (Manual) Monocytes # (Manual) Eosinophils # (Manual) Nucleated RBC % Basophils # (Manual) PT INR APTT Heparin Anti-Xa Level ABG pH POC ABG pO2 ABG pO2 ABG HCO3 ABG O2 Saturation ABG Base Excess POC ABG pCO2 ABG Hemoglobin ABG Oxyhemoglobin ABG Sodium ABG Chloride ABG Glucose Oxyhemoglobin Sodium Potassium Chloride Carbon Dioxide BUN Creatinine Glucose POC Glucose 152 H 132 H 159 H Lactic Acid Calcium Phosphorus Magnesium AST ALT Lactate Dehydrogenase Total Bilirubin Direct Bilirubin CK-MB (CK-2) C-Reactive Protein NT-Pro-B Natriuret Pep Total Protein Albumin Arterial Blood Glucose Urine WBC (Auto) Urine Creatinine Digoxin 01/30/20 01/30/20 01/30/20 12:27 17:42 23:28 WBC RBC Hgb Hct MCHC RDW MCV MCH Lymph % (Auto) [place] % (Auto) [place] # Eos # Lymph # (Auto) [place] # (Auto) Eos # (Auto) Seg Neutrophils % Seg Neuts % (Manual) Baso # (Auto) Lymphocytes % (Manual) Monocytes % (Manual) Eosinophils % (Manual) Basophils % (Manual) Seg Neutrophils # Seg Neutrophils # Man Lymphocytes # (Manual) Monocytes # (Manual) Eosinophils # (Manual) Nucleated RBC % Basophils # (Manual) PT INR APTT Heparin Anti-Xa Level ABG pH POC ABG pO2 ABG pO2 ABG HCO3 ABG O2 Saturation ABG Base Excess POC ABG pCO2 ABG Hemoglobin ABG Oxyhemoglobin ABG Sodium ABG Chloride ABG Glucose Oxyhemoglobin Sodium Potassium Chloride Carbon Dioxide BUN Creatinine Glucose POC Glucose 151 H 144 H 164 H Lactic Acid Calcium Phosphorus Magnesium AST ALT Lactate Dehydrogenase Total Bilirubin Direct Bilirubin CK-MB (CK-2) C-Reactive Protein NT-Pro-B Natriuret Pep Total Protein Albumin Arterial Blood Glucose Urine WBC (Auto) Urine Creatinine Digoxin 01/31/20 01/31/20 01/31/20 05:51 11:51 18:06 WBC RBC Hgb Hct MCHC RDW MCV MCH Lymph % (Auto) [place] % (Auto) [place] # Eos # Lymph # (Auto) [place] # (Auto) Eos # (Auto) Seg Neutrophils % Seg Neuts % (Manual) Baso # (Auto) Lymphocytes % (Manual) Monocytes % (Manual) Eosinophils % (Manual) Basophils % (Manual) Seg Neutrophils # Seg Neutrophils # Man Lymphocytes # (Manual) Monocytes # (Manual) Eosinophils # (Manual) Nucleated RBC % Basophils # (Manual) PT INR APTT Heparin Anti-Xa Level ABG pH POC ABG pO2 ABG pO2 ABG HCO3 ABG O2 Saturation ABG Base Excess POC ABG pCO2 ABG Hemoglobin ABG Oxyhemoglobin ABG Sodium ABG Chloride ABG Glucose Oxyhemoglobin Sodium Potassium Chloride Carbon Dioxide BUN Creatinine Glucose POC Glucose 131 H 167 H 210 H Lactic Acid Calcium Phosphorus Magnesium AST ALT Lactate Dehydrogenase Total Bilirubin Direct Bilirubin CK-MB (CK-2) C-Reactive Protein NT-Pro-B Natriuret Pep Total Protein Albumin Arterial Blood Glucose Urine WBC (Auto) Urine Creatinine Digoxin 01/31/20 01/31/20 02/01/20 19:24 Unknown 00:34 WBC RBC Hgb Hct MCHC RDW MCV MCH Lymph % (Auto) [place] % (Auto) [place] # Eos # Lymph # (Auto) [place] # (Auto) Eos # (Auto) Seg Neutrophils % Seg Neuts % (Manual) Baso # (Auto) Lymphocytes % (Manual) Monocytes % (Manual) Eosinophils % (Manual) Basophils % (Manual) Seg Neutrophils # Seg Neutrophils # Man Lymphocytes # (Manual) Monocytes # (Manual) Eosinophils # (Manual) Nucleated RBC % Basophils # (Manual) PT INR APTT Heparin Anti-Xa Level ABG pH POC ABG pO2 ABG pO2 ABG HCO3 ABG O2 Saturation ABG Base Excess POC ABG pCO2 ABG Hemoglobin ABG Oxyhemoglobin ABG Sodium ABG Chloride ABG Glucose Oxyhemoglobin Sodium Potassium Chloride 95.3 L Carbon Dioxide 33 H BUN 36 H Creatinine Glucose 187 H POC Glucose 116 H Lactic Acid Calcium Phosphorus Magnesium AST ALT Lactate Dehydrogenase Total Bilirubin Direct Bilirubin CK-MB (CK-2) C-Reactive Protein NT-Pro-B Natriuret Pep Total Protein Albumin Arterial Blood Glucose Urine WBC (Auto) Urine Creatinine 57.4 H Digoxin 02/01/20 02/01/20 02/01/20 05:24 10:40 12:29 WBC RBC Hgb Hct MCHC RDW MCV MCH Lymph % (Auto) [place] % (Auto) [place] # Eos # Lymph # (Auto) [place] # (Auto) Eos # (Auto) Seg Neutrophils % Seg Neuts % (Manual) Baso # (Auto) Lymphocytes % (Manual) Monocytes % (Manual) Eosinophils % (Manual) Basophils % (Manual) Seg Neutrophils # Seg Neutrophils # Man Lymphocytes # (Manual) Monocytes # (Manual) Eosinophils # (Manual) Nucleated RBC % Basophils # (Manual) PT INR APTT Heparin Anti-Xa Level ABG pH POC ABG pO2 ABG pO2 ABG HCO3 ABG O2 Saturation ABG Base Excess POC ABG pCO2 ABG Hemoglobin ABG Oxyhemoglobin ABG Sodium ABG Chloride ABG Glucose Oxyhemoglobin Sodium Potassium Chloride Carbon Dioxide BUN Creatinine Glucose POC Glucose 142 H 165 H 151 H Lactic Acid Calcium Phosphorus Magnesium AST ALT Lactate Dehydrogenase Total Bilirubin Direct Bilirubin CK-MB (CK-2) C-Reactive Protein NT-Pro-B Natriuret Pep Total Protein Albumin Arterial Blood Glucose Urine WBC (Auto) Urine Creatinine Digoxin 02/01/20 02/01/20 02/02/20 17:16 23:23 06:36 WBC RBC Hgb Hct MCHC RDW MCV MCH Lymph % (Auto) [place] % (Auto) [place] # Eos # Lymph # (Auto) [place] # (Auto) Eos # (Auto) Seg Neutrophils % Seg Neuts % (Manual) Baso # (Auto) Lymphocytes % (Manual) Monocytes % (Manual) Eosinophils % (Manual) Basophils % (Manual) Seg Neutrophils # Seg Neutrophils # Man Lymphocytes # (Manual) Monocytes # (Manual) Eosinophils # (Manual) Nucleated RBC % Basophils # (Manual) PT INR APTT Heparin Anti-Xa Level ABG pH POC ABG pO2 ABG pO2 ABG HCO3 ABG O2 Saturation ABG Base Excess POC ABG pCO2 ABG Hemoglobin ABG Oxyhemoglobin ABG Sodium ABG Chloride ABG Glucose Oxyhemoglobin Sodium Potassium Chloride Carbon Dioxide BUN Creatinine Glucose POC Glucose 137 H 145 H 181 H Lactic Acid Calcium Phosphorus Magnesium AST ALT Lactate Dehydrogenase Total Bilirubin Direct Bilirubin CK-MB (CK-2) C-Reactive Protein NT-Pro-B Natriuret Pep Total Protein Albumin Arterial Blood Glucose Urine WBC (Auto) Urine Creatinine Digoxin 02/02/20 02/02/20 02/02/20 10:01 12:05 17:54 WBC RBC Hgb Hct MCHC RDW MCV MCH Lymph % (Auto) [place] % (Auto) [place] # Eos # Lymph # (Auto) [place] # (Auto) Eos # (Auto) Seg Neutrophils % Seg Neuts % (Manual) Baso # (Auto) Lymphocytes % (Manual) Monocytes % (Manual) Eosinophils % (Manual) Basophils % (Manual) Seg Neutrophils # Seg Neutrophils # Man Lymphocytes # (Manual) Monocytes # (Manual) Eosinophils # (Manual) Nucleated RBC % Basophils # (Manual) PT INR APTT Heparin Anti-Xa Level ABG pH POC ABG pO2 ABG pO2 ABG HCO3 ABG O2 Saturation ABG Base Excess POC ABG pCO2 ABG Hemoglobin ABG Oxyhemoglobin ABG Sodium ABG Chloride ABG Glucose Oxyhemoglobin Sodium Potassium Chloride 95.3 L Carbon Dioxide BUN 44 H Creatinine Glucose 234 H POC Glucose 184 H 127 H Lactic Acid Calcium Phosphorus Magnesium AST 363 H ALT 457 H Lactate Dehydrogenase Total Bilirubin Direct Bilirubin CK-MB (CK-2) C-Reactive Protein NT-Pro-B Natriuret Pep Total Protein Albumin 3.0 L Arterial Blood Glucose Urine WBC (Auto) Urine Creatinine Digoxin 02/02/20 02/03/20 02/03/20 23:47 05:32 07:04 WBC 13.0 H RBC Hgb 9.5 L Hct 30.8 L MCHC 31 L RDW 19.6 H MCV 81 L MCH 25 L Lymph % (Auto) [place] % (Auto) 9.4 H [place] # Eos # Lymph # (Auto) [place] # (Auto) 1.2 H Eos # (Auto) Seg Neutrophils % 72.3 H Seg Neuts % (Manual) Baso # (Auto) Lymphocytes % (Manual) Monocytes % (Manual) Eosinophils % (Manual) Basophils % (Manual) Seg Neutrophils # 9.4 H Seg Neutrophils # Man Lymphocytes # (Manual) Monocytes # (Manual) Eosinophils # (Manual) Nucleated RBC % Basophils # (Manual) PT INR APTT Heparin Anti-Xa Level ABG pH POC ABG pO2 ABG pO2 ABG HCO3 ABG O2 Saturation ABG Base Excess POC ABG pCO2 ABG Hemoglobin ABG Oxyhemoglobin ABG Sodium ABG Chloride ABG Glucose Oxyhemoglobin Sodium Potassium Chloride Carbon Dioxide BUN Creatinine Glucose POC Glucose 124 H 129 H Lactic Acid Calcium Phosphorus Magnesium AST ALT Lactate Dehydrogenase Total Bilirubin Direct Bilirubin CK-MB (CK-2) C-Reactive Protein NT-Pro-B Natriuret Pep Total Protein Albumin Arterial Blood Glucose Urine WBC (Auto) Urine Creatinine Digoxin 02/03/20 02/03/20 02/03/20 07:04 11:32 12:49 WBC RBC Hgb Hct MCHC RDW MCV MCH Lymph % (Auto) [place] % (Auto) [place] # Eos # Lymph # (Auto) [place] # (Auto) Eos # (Auto) Seg Neutrophils % Seg Neuts % (Manual) Baso # (Auto) Lymphocytes % (Manual) Monocytes % (Manual) Eosinophils % (Manual) Basophils % (Manual) Seg Neutrophils # Seg Neutrophils # Man Lymphocytes # (Manual) Monocytes # (Manual) Eosinophils # (Manual) Nucleated RBC % Basophils # (Manual) PT INR APTT Heparin Anti-Xa Level ABG pH POC ABG pO2 ABG pO2 ABG HCO3 ABG O2 Saturation ABG Base Excess POC ABG pCO2 ABG Hemoglobin ABG Oxyhemoglobin ABG Sodium ABG Chloride ABG Glucose Oxyhemoglobin Sodium Potassium Chloride 97.9 L Carbon Dioxide 33 H BUN 39 H Creatinine Glucose 119 H POC Glucose 138 H Lactic Acid Calcium Phosphorus Magnesium 2.60 H AST ALT Lactate Dehydrogenase Total Bilirubin Direct Bilirubin CK-MB (CK-2) C-Reactive Protein NT-Pro-B Natriuret Pep Total Protein Albumin Arterial Blood Glucose Urine WBC (Auto) Urine Creatinine Digoxin 02/03/20 02/04/20 02/04/20 18:28 16:24 16:24 WBC RBC 3.38 L Hgb 8.6 L Hct 26.9 L MCHC RDW 19.5 H MCV 80 L MCH 26 L Lymph % (Auto) [place] % (Auto) [place] # Eos # Lymph # (Auto) [place] # (Auto) Eos # (Auto) Seg Neutrophils % Seg Neuts % (Manual) Baso # (Auto) Lymphocytes % (Manual) Monocytes % (Manual) Eosinophils % (Manual) Basophils % (Manual) Seg Neutrophils # Seg Neutrophils # Man Lymphocytes # (Manual) Monocytes # (Manual) Eosinophils # (Manual) Nucleated RBC % Basophils # (Manual) PT INR APTT Heparin Anti-Xa Level ABG pH POC ABG pO2 ABG pO2 ABG HCO3 ABG O2 Saturation ABG Base Excess POC ABG pCO2 ABG Hemoglobin ABG Oxyhemoglobin ABG Sodium ABG Chloride ABG Glucose Oxyhemoglobin Sodium Potassium 3.4 L Chloride Carbon Dioxide 31 H BUN 37 H Creatinine Glucose 70 L POC Glucose 118 H Lactic Acid Calcium Phosphorus Magnesium AST 169 H ALT 394 H Lactate Dehydrogenase Total Bilirubin 1.50 H Direct Bilirubin CK-MB (CK-2) C-Reactive Protein NT-Pro-B Natriuret Pep Total Protein Albumin 2.9 L Arterial Blood Glucose Urine WBC (Auto) Urine Creatinine Digoxin 02/05/20 02/05/20 02/05/20 00:41 06:37 17:14 WBC RBC Hgb Hct MCHC RDW MCV MCH Lymph % (Auto) [place] % (Auto) [place] # Eos # Lymph # (Auto) [place] # (Auto) Eos # (Auto) Seg Neutrophils % Seg Neuts % (Manual) Baso # (Auto) Lymphocytes % (Manual) Monocytes % (Manual) Eosinophils % (Manual) Basophils % (Manual) Seg Neutrophils # Seg Neutrophils # Man Lymphocytes # (Manual) Monocytes # (Manual) Eosinophils # (Manual) Nucleated RBC % Basophils # (Manual) PT INR APTT Heparin Anti-Xa Level ABG pH POC ABG pO2 ABG pO2 ABG HCO3 ABG O2 Saturation ABG Base Excess POC ABG pCO2 ABG Hemoglobin ABG Oxyhemoglobin ABG Sodium ABG Chloride ABG Glucose Oxyhemoglobin Sodium Potassium 3.1 L Chloride Carbon Dioxide 35 H BUN 32 H Creatinine 0.7 L Glucose POC Glucose 69 L 127 H Lactic Acid Calcium Phosphorus Magnesium AST 134 H ALT 352 H Lactate Dehydrogenase Total Bilirubin 1.60 H Direct Bilirubin CK-MB (CK-2) C-Reactive Protein NT-Pro-B Natriuret Pep Total Protein Albumin 2.9 L Arterial Blood Glucose Urine WBC (Auto) Urine Creatinine Digoxin 02/05/20 02/06/20 02/06/20 23:43 05:32 08:01 WBC RBC Hgb Hct MCHC RDW MCV MCH Lymph % (Auto) [place] % (Auto) [place] # Eos # Lymph # (Auto) [place] # (Auto) Eos # (Auto) Seg Neutrophils % Seg Neuts % (Manual) Baso # (Auto) Lymphocytes % (Manual) Monocytes % (Manual) Eosinophils % (Manual) Basophils % (Manual) Seg Neutrophils # Seg Neutrophils # Man Lymphocytes # (Manual) Monocytes # (Manual) Eosinophils # (Manual) Nucleated RBC % Basophils # (Manual) PT INR APTT Heparin Anti-Xa Level ABG pH POC ABG pO2 ABG pO2 ABG HCO3 ABG O2 Saturation ABG Base Excess POC ABG pCO2 ABG Hemoglobin ABG Oxyhemoglobin ABG Sodium ABG Chloride ABG Glucose Oxyhemoglobin Sodium Potassium Chloride Carbon Dioxide BUN 40 H Creatinine Glucose 132 H POC Glucose 129 H 131 H Lactic Acid Calcium Phosphorus Magnesium AST ALT Lactate Dehydrogenase Total Bilirubin Direct Bilirubin CK-MB (CK-2) C-Reactive Protein NT-Pro-B Natriuret Pep Total Protein Albumin Arterial Blood Glucose Urine WBC (Auto) Urine Creatinine Digoxin 02/06/20 02/06/20 02/06/20 11:51 16:28 17:32 WBC RBC Hgb Hct MCHC RDW MCV MCH Lymph % (Auto) [place] % (Auto) [place] # Eos # Lymph # (Auto) [place] # (Auto) Eos # (Auto) Seg Neutrophils % Seg Neuts % (Manual) Baso # (Auto) Lymphocytes % (Manual) Monocytes % (Manual) Eosinophils % (Manual) Basophils % (Manual) Seg Neutrophils # Seg Neutrophils # Man Lymphocytes # (Manual) Monocytes # (Manual) Eosinophils # (Manual) Nucleated RBC % Basophils # (Manual) PT INR APTT Heparin Anti-Xa Level ABG pH POC ABG pO2 ABG pO2 ABG HCO3 ABG O2 Saturation ABG Base Excess POC ABG pCO2 ABG Hemoglobin ABG Oxyhemoglobin ABG Sodium ABG Chloride ABG Glucose Oxyhemoglobin Sodium Potassium Chloride Carbon Dioxide BUN Creatinine Glucose POC Glucose 167 H 129 H Lactic Acid Calcium Phosphorus Magnesium AST 824 H ALT 948 H Lactate Dehydrogenase Total Bilirubin 1.70 H Direct Bilirubin 1.2 H CK-MB (CK-2) C-Reactive Protein NT-Pro-B Natriuret Pep Total Protein Albumin 2.9 L Arterial Blood Glucose Urine WBC (Auto) Urine Creatinine Digoxin 02/07/20 02/07/20 02/07/20 00:11 04:57 04:57 WBC RBC Hgb 9.2 L Hct 29.7 L MCHC 31 L RDW 20.2 H MCV 80 L MCH 25 L Lymph % (Auto) [place] % (Auto) [place] # Eos # Lymph # (Auto) [place] # (Auto) Eos # (Auto) Seg Neutrophils % Seg Neuts % (Manual) Baso # (Auto) Lymphocytes % (Manual) Monocytes % (Manual) Eosinophils % (Manual) Basophils % (Manual) Seg Neutrophils # Seg Neutrophils # Man Lymphocytes # (Manual) Monocytes # (Manual) Eosinophils # (Manual) Nucleated RBC % Basophils # (Manual) PT INR APTT Heparin Anti-Xa Level ABG pH POC ABG pO2 ABG pO2 ABG HCO3 ABG O2 Saturation ABG Base Excess POC ABG pCO2 ABG Hemoglobin ABG Oxyhemoglobin ABG Sodium ABG Chloride ABG Glucose Oxyhemoglobin Sodium Potassium 3.4 L D Chloride Carbon Dioxide 32 H BUN 39 H Creatinine Glucose 106 H POC Glucose 121 H Lactic Acid Calcium Phosphorus Magnesium AST ALT Lactate Dehydrogenase Total Bilirubin Direct Bilirubin CK-MB (CK-2) C-Reactive Protein NT-Pro-B Natriuret Pep Total Protein Albumin Arterial Blood Glucose Urine WBC (Auto) Urine Creatinine Digoxin 02/07/20 02/07/20 02/07/20 15:03 15:03 17:11 WBC RBC Hgb Hct MCHC RDW MCV MCH Lymph % (Auto) [place] % (Auto) [place] # Eos # Lymph # (Auto) [place] # (Auto) Eos # (Auto) Seg Neutrophils % Seg Neuts % (Manual) Baso # (Auto) Lymphocytes % (Manual) Monocytes % (Manual) Eosinophils % (Manual) Basophils % (Manual) Seg Neutrophils # Seg Neutrophils # Man Lymphocytes # (Manual) Monocytes # (Manual) Eosinophils # (Manual) Nucleated RBC % Basophils # (Manual) PT 27.0 H INR 2.46 H APTT Heparin Anti-Xa Level ABG pH POC ABG pO2 ABG pO2 ABG HCO3 ABG O2 Saturation ABG Base Excess POC ABG pCO2 ABG Hemoglobin ABG Oxyhemoglobin ABG Sodium ABG Chloride ABG Glucose Oxyhemoglobin Sodium Potassium Chloride Carbon Dioxide BUN Creatinine Glucose POC Glucose 109 H Lactic Acid Calcium Phosphorus Magnesium AST 424 H ALT 796 H Lactate Dehydrogenase Total Bilirubin 1.60 H Direct Bilirubin 1.2 H CK-MB (CK-2) C-Reactive Protein NT-Pro-B Natriuret Pep Total Protein Albumin 2.9 L Arterial Blood Glucose Urine WBC (Auto) Urine Creatinine Digoxin 02/08/20 02/08/20 02/08/20 12:14 17:44 19:00 WBC RBC Hgb Hct MCHC RDW MCV MCH Lymph % (Auto) [place] % (Auto) [place] # Eos # Lymph # (Auto) [place] # (Auto) Eos # (Auto) Seg Neutrophils % Seg Neuts % (Manual) Baso # (Auto) Lymphocytes % (Manual) Monocytes % (Manual) Eosinophils % (Manual) Basophils % (Manual) Seg Neutrophils # Seg Neutrophils # Man Lymphocytes # (Manual) Monocytes # (Manual) Eosinophils # (Manual) Nucleated RBC % Basophils # (Manual) PT INR APTT Heparin Anti-Xa Level ABG pH POC ABG pO2 ABG pO2 ABG HCO3 ABG O2 Saturation ABG Base Excess POC ABG pCO2 ABG Hemoglobin ABG Oxyhemoglobin ABG Sodium ABG Chloride ABG Glucose Oxyhemoglobin Sodium Potassium Chloride Carbon Dioxide BUN Creatinine Glucose POC Glucose 111 H 107 H Lactic Acid Calcium Phosphorus Magnesium AST 309 H ALT 650 H Lactate Dehydrogenase Total Bilirubin 1.30 H Direct Bilirubin 0.9 H CK-MB (CK-2) C-Reactive Protein NT-Pro-B Natriuret Pep Total Protein 6.2 L Albumin 2.7 L Arterial Blood Glucose Urine WBC (Auto) Urine Creatinine Digoxin 02/09/20 02/09/20 02/09/20 05:41 12:28 18:07 WBC RBC Hgb Hct MCHC RDW MCV MCH Lymph % (Auto) [place] % (Auto) [place] # Eos # Lymph # (Auto) [place] # (Auto) Eos # (Auto) Seg Neutrophils % Seg Neuts % (Manual) Baso # (Auto) Lymphocytes % (Manual) Monocytes % (Manual) Eosinophils % (Manual) Basophils % (Manual) Seg Neutrophils # Seg Neutrophils # Man Lymphocytes # (Manual) Monocytes # (Manual) Eosinophils # (Manual) Nucleated RBC % Basophils # (Manual) PT INR APTT Heparin Anti-Xa Level ABG pH POC ABG pO2 ABG pO2 ABG HCO3 ABG O2 Saturation ABG Base Excess POC ABG pCO2 ABG Hemoglobin ABG Oxyhemoglobin ABG Sodium ABG Chloride ABG Glucose Oxyhemoglobin Sodium Potassium Chloride Carbon Dioxide BUN Creatinine Glucose POC Glucose 113 H 140 H 143 H Lactic Acid Calcium Phosphorus Magnesium AST ALT Lactate Dehydrogenase Total Bilirubin Direct Bilirubin CK-MB (CK-2) C-Reactive Protein NT-Pro-B Natriuret Pep Total Protein Albumin Arterial Blood Glucose Urine WBC (Auto) Urine Creatinine Digoxin 02/09/20 02/09/20 02/10/20 21:40 23:45 06:00 WBC RBC Hgb Hct MCHC RDW MCV MCH Lymph % (Auto) [place] % (Auto) [place] # Eos # Lymph # (Auto) [place] # (Auto) Eos # (Auto) Seg Neutrophils % Seg Neuts % (Manual) Baso # (Auto) Lymphocytes % (Manual) Monocytes % (Manual) Eosinophils % (Manual) Basophils % (Manual) Seg Neutrophils # Seg Neutrophils # Man Lymphocytes # (Manual) Monocytes # (Manual) Eosinophils # (Manual) Nucleated RBC % Basophils # (Manual) PT INR APTT Heparin Anti-Xa Level ABG pH POC ABG pO2 ABG pO2 59.8 L ABG HCO3 33.3 H ABG O2 Saturation 88.9 L ABG Base Excess 7.4 H POC ABG pCO2 ABG Hemoglobin 10.4 L ABG Oxyhemoglobin ABG Sodium ABG Chloride ABG Glucose Oxyhemoglobin 86.3 L Sodium Potassium Chloride Carbon Dioxide BUN Creatinine Glucose POC Glucose 127 H 114 H Lactic Acid Calcium Phosphorus Magnesium AST ALT Lactate Dehydrogenase Total Bilirubin Direct Bilirubin CK-MB (CK-2) C-Reactive Protein NT-Pro-B Natriuret Pep Total Protein Albumin Arterial Blood Glucose Urine WBC (Auto) Urine Creatinine Digoxin 02/10/20 02/10/20 02/10/20 07:40 07:40 13:38 WBC 11.5 H RBC Hgb 10.6 L Hct 34.7 L MCHC 31 L RDW 19.8 H MCV 79 L MCH 24 L Lymph % (Auto) [place] % (Auto) 9.2 H [place] # Eos # Lymph # (Auto) [place] # (Auto) 1.1 H Eos # (Auto) Seg Neutrophils % Seg Neuts % (Manual) Baso # (Auto) Lymphocytes % (Manual) Monocytes % (Manual) Eosinophils % (Manual) Basophils % (Manual) Seg Neutrophils # Seg Neutrophils # Man Lymphocytes # (Manual) Monocytes # (Manual) Eosinophils # (Manual) Nucleated RBC % Basophils # (Manual) PT INR APTT Heparin Anti-Xa Level ABG pH POC ABG pO2 ABG pO2 ABG HCO3 ABG O2 Saturation ABG Base Excess POC ABG pCO2 ABG Hemoglobin ABG Oxyhemoglobin ABG Sodium ABG Chloride ABG Glucose Oxyhemoglobin Sodium 151 H Potassium Chloride 107.2 H Carbon Dioxide 36 H BUN 25 H Creatinine 0.7 L Glucose 114 H POC Glucose 116 H Lactic Acid Calcium Phosphorus Magnesium 2.40 H AST ALT Lactate Dehydrogenase Total Bilirubin Direct Bilirubin CK-MB (CK-2) C-Reactive Protein NT-Pro-B Natriuret Pep Total Protein Albumin Arterial Blood Glucose Urine WBC (Auto) Urine Creatinine Digoxin 02/10/20 02/11/20 02/11/20 17:44 05:47 12:21 WBC RBC Hgb Hct MCHC RDW MCV MCH Lymph % (Auto) [place] % (Auto) [place] # Eos # Lymph # (Auto) [place] # (Auto) Eos # (Auto) Seg Neutrophils % Seg Neuts % (Manual) Baso # (Auto) Lymphocytes % (Manual) Monocytes % (Manual) Eosinophils % (Manual) Basophils % (Manual) Seg Neutrophils # Seg Neutrophils # Man Lymphocytes # (Manual) Monocytes # (Manual) Eosinophils # (Manual) Nucleated RBC % Basophils # (Manual) PT INR APTT Heparin Anti-Xa Level ABG pH POC ABG pO2 ABG pO2 ABG HCO3 ABG O2 Saturation ABG Base Excess POC ABG pCO2 ABG Hemoglobin ABG Oxyhemoglobin ABG Sodium ABG Chloride ABG Glucose Oxyhemoglobin Sodium Potassium Chloride Carbon Dioxide BUN Creatinine Glucose POC Glucose 139 H 173 H 143 H Lactic Acid Calcium Phosphorus Magnesium AST ALT Lactate Dehydrogenase Total Bilirubin Direct Bilirubin CK-MB (CK-2) C-Reactive Protein NT-Pro-B Natriuret Pep Total Protein Albumin Arterial Blood Glucose Urine WBC (Auto) Urine Creatinine Digoxin 02/11/20 02/11/20 02/12/20 13:43 14:11 00:15 WBC RBC Hgb Hct MCHC RDW MCV MCH Lymph % (Auto) [place] % (Auto) [place] # Eos # Lymph # (Auto) [place] # (Auto) Eos # (Auto) Seg Neutrophils % Seg Neuts % (Manual) Baso # (Auto) Lymphocytes % (Manual) Monocytes % (Manual) Eosinophils % (Manual) Basophils % (Manual) Seg Neutrophils # Seg Neutrophils # Man Lymphocytes # (Manual) Monocytes # (Manual) Eosinophils # (Manual) Nucleated RBC % Basophils # (Manual) PT INR APTT Heparin Anti-Xa Level ABG pH 7.502 H POC ABG pO2 77.7 L ABG pO2 ABG HCO3 ABG O2 Saturation ABG Base Excess POC ABG pCO2 ABG Hemoglobin 11.1 L ABG Oxyhemoglobin ABG Sodium ABG Chloride 108.0 H ABG Glucose 151 H Oxyhemoglobin Sodium Potassium Chloride Carbon Dioxide BUN Creatinine Glucose POC Glucose 130 H 125 H Lactic Acid Calcium Phosphorus Magnesium AST ALT Lactate Dehydrogenase Total Bilirubin Direct Bilirubin CK-MB (CK-2) C-Reactive Protein NT-Pro-B Natriuret Pep Total Protein Albumin Arterial Blood Glucose 151 H Urine WBC (Auto) Urine Creatinine Digoxin 02/12/20 02/12/20 02/12/20 04:56 04:56 17:42 WBC RBC Hgb 9.9 L Hct 31.8 L MCHC 31 L RDW 19.4 H MCV 79 L MCH 25 L Lymph % (Auto) [place] % (Auto) 10.3 H [place] # Eos # Lymph # (Auto) [place] # (Auto) 1.0 H Eos # (Auto) Seg Neutrophils % Seg Neuts % (Manual) Baso # (Auto) Lymphocytes % (Manual) Monocytes % (Manual) Eosinophils % (Manual) Basophils % (Manual) Seg Neutrophils # Seg Neutrophils # Man Lymphocytes # (Manual) Monocytes # (Manual) Eosinophils # (Manual) Nucleated RBC % Basophils # (Manual) PT INR APTT Heparin Anti-Xa Level ABG pH POC ABG pO2 ABG pO2 ABG HCO3 ABG O2 Saturation ABG Base Excess POC ABG pCO2 ABG Hemoglobin ABG Oxyhemoglobin ABG Sodium ABG Chloride ABG Glucose Oxyhemoglobin Sodium 149 H Potassium Chloride 108.6 H Carbon Dioxide BUN 28 H Creatinine 0.7 L Glucose 108 H POC Glucose 113 H Lactic Acid Calcium Phosphorus Magnesium AST ALT Lactate Dehydrogenase Total Bilirubin Direct Bilirubin CK-MB (CK-2) C-Reactive Protein NT-Pro-B Natriuret Pep Total Protein Albumin Arterial Blood Glucose Urine WBC (Auto) Urine Creatinine Digoxin 02/13/20 02/13/20 02/13/20 00:39 05:36 12:25 WBC RBC Hgb Hct MCHC RDW MCV MCH Lymph % (Auto) [place] % (Auto) [place] # Eos # Lymph # (Auto) [place] # (Auto) Eos # (Auto) Seg Neutrophils % Seg Neuts % (Manual) Baso # (Auto) Lymphocytes % (Manual) Monocytes % (Manual) Eosinophils % (Manual) Basophils % (Manual) Seg Neutrophils # Seg Neutrophils # Man Lymphocytes # (Manual) Monocytes # (Manual) Eosinophils # (Manual) Nucleated RBC % Basophils # (Manual) PT INR APTT Heparin Anti-Xa Level ABG pH POC ABG pO2 ABG pO2 ABG HCO3 ABG O2 Saturation ABG Base Excess POC ABG pCO2 ABG Hemoglobin ABG Oxyhemoglobin ABG Sodium ABG Chloride ABG Glucose Oxyhemoglobin Sodium Potassium Chloride Carbon Dioxide BUN Creatinine Glucose POC Glucose 129 H 126 H 129 H Lactic Acid Calcium Phosphorus Magnesium AST ALT Lactate Dehydrogenase Total Bilirubin Direct Bilirubin CK-MB (CK-2) C-Reactive Protein NT-Pro-B Natriuret Pep Total Protein Albumin Arterial Blood Glucose Urine WBC (Auto) Urine Creatinine Digoxin 02/13/20 02/14/20 02/14/20 17:59 00:15 05:41 WBC RBC Hgb Hct MCHC RDW MCV MCH Lymph % (Auto) [place] % (Auto) [place] # Eos # Lymph # (Auto) [place] # (Auto) Eos # (Auto) Seg Neutrophils % Seg Neuts % (Manual) Baso # (Auto) Lymphocytes % (Manual) Monocytes % (Manual) Eosinophils % (Manual) Basophils % (Manual) Seg Neutrophils # Seg Neutrophils # Man Lymphocytes # (Manual) Monocytes # (Manual) Eosinophils # (Manual) Nucleated RBC % Basophils # (Manual) PT INR APTT Heparin Anti-Xa Level ABG pH POC ABG pO2 ABG pO2 ABG HCO3 ABG O2 Saturation ABG Base Excess POC ABG pCO2 ABG Hemoglobin ABG Oxyhemoglobin ABG Sodium ABG Chloride ABG Glucose Oxyhemoglobin Sodium Potassium Chloride Carbon Dioxide BUN Creatinine Glucose POC Glucose 153 H 130 H 130 H Lactic Acid Calcium Phosphorus Magnesium AST ALT Lactate Dehydrogenase Total Bilirubin Direct Bilirubin CK-MB (CK-2) C-Reactive Protein NT-Pro-B Natriuret Pep Total Protein Albumin Arterial Blood Glucose Urine WBC (Auto) Urine Creatinine Digoxin 02/14/20 02/15/20 02/15/20 11:32 00:12 05:27 WBC RBC Hgb Hct MCHC RDW MCV MCH Lymph % (Auto) [place] % (Auto) [place] # Eos # Lymph # (Auto) [place] # (Auto) Eos # (Auto) Seg Neutrophils % Seg Neuts % (Manual) Baso # (Auto) Lymphocytes % (Manual) Monocytes % (Manual) Eosinophils % (Manual) Basophils % (Manual) Seg Neutrophils # Seg Neutrophils # Man Lymphocytes # (Manual) Monocytes # (Manual) Eosinophils # (Manual) Nucleated RBC % Basophils # (Manual) PT INR APTT Heparin Anti-Xa Level ABG pH POC ABG pO2 ABG pO2 ABG HCO3 ABG O2 Saturation ABG Base Excess POC ABG pCO2 ABG Hemoglobin ABG Oxyhemoglobin ABG Sodium ABG Chloride ABG Glucose Oxyhemoglobin Sodium Potassium Chloride Carbon Dioxide BUN Creatinine Glucose POC Glucose 157 H 124 H 111 H Lactic Acid Calcium Phosphorus Magnesium AST ALT Lactate Dehydrogenase Total Bilirubin Direct Bilirubin CK-MB (CK-2) C-Reactive Protein NT-Pro-B Natriuret Pep Total Protein Albumin Arterial Blood Glucose Urine WBC (Auto) Urine Creatinine Digoxin 02/15/20 02/15/20 02/15/20 06:59 06:59 11:14 WBC RBC Hgb 10.4 L Hct 33.7 L MCHC 31 L RDW 19.4 H MCV 80 L MCH 24 L Lymph % (Auto) [place] % (Auto) [place] # Eos # Lymph # (Auto) [place] # (Auto) Eos # (Auto) Seg Neutrophils % Seg Neuts % (Manual) Baso # (Auto) Lymphocytes % (Manual) Monocytes % (Manual) Eosinophils % (Manual) Basophils % (Manual) 2.0 H Seg Neutrophils # Seg Neutrophils # Man Lymphocytes # (Manual) Monocytes # (Manual) Eosinophils # (Manual) Nucleated RBC % 1.0 H Basophils # (Manual) 0.2 H PT INR APTT Heparin Anti-Xa Level ABG pH POC ABG pO2 ABG pO2 ABG HCO3 ABG O2 Saturation ABG Base Excess POC ABG pCO2 ABG Hemoglobin ABG Oxyhemoglobin ABG Sodium ABG Chloride ABG Glucose Oxyhemoglobin Sodium 149 H Potassium Chloride 108.4 H Carbon Dioxide 31 H BUN 40 H Creatinine 0.7 L Glucose 150 H POC Glucose 128 H Lactic Acid Calcium Phosphorus Magnesium AST ALT Lactate Dehydrogenase Total Bilirubin Direct Bilirubin CK-MB (CK-2) C-Reactive Protein NT-Pro-B Natriuret Pep Total Protein Albumin Arterial Blood Glucose Urine WBC (Auto) Urine Creatinine Digoxin 02/15/20 02/15/20 02/16/20 17:46 23:50 05:03 WBC RBC Hgb Hct MCHC RDW MCV MCH Lymph % (Auto) [place] % (Auto) [place] # Eos # Lymph # (Auto) [place] # (Auto) Eos # (Auto) Seg Neutrophils % Seg Neuts % (Manual) Baso # (Auto) Lymphocytes % (Manual) Monocytes % (Manual) Eosinophils % (Manual) Basophils % (Manual) Seg Neutrophils # Seg Neutrophils # Man Lymphocytes # (Manual) Monocytes # (Manual) Eosinophils # (Manual) Nucleated RBC % Basophils # (Manual) PT INR APTT Heparin Anti-Xa Level ABG pH POC ABG pO2 ABG pO2 ABG HCO3 ABG O2 Saturation ABG Base Excess POC ABG pCO2 ABG Hemoglobin ABG Oxyhemoglobin ABG Sodium ABG Chloride ABG Glucose Oxyhemoglobin Sodium Potassium Chloride Carbon Dioxide BUN Creatinine Glucose POC Glucose 154 H 135 H 148 H Lactic Acid Calcium Phosphorus Magnesium AST ALT Lactate Dehydrogenase Total Bilirubin Direct Bilirubin CK-MB (CK-2) C-Reactive Protein NT-Pro-B Natriuret Pep Total Protein Albumin Arterial Blood Glucose Urine WBC (Auto) Urine Creatinine Digoxin 02/16/20 02/16/20 02/16/20 07:53 11:28 17:52 WBC RBC Hgb Hct MCHC RDW MCV MCH Lymph % (Auto) [place] % (Auto) [place] # Eos # Lymph # (Auto) [place] # (Auto) Eos # (Auto) Seg Neutrophils % Seg Neuts % (Manual) Baso # (Auto) Lymphocytes % (Manual) Monocytes % (Manual) Eosinophils % (Manual) Basophils % (Manual) Seg Neutrophils # Seg Neutrophils # Man Lymphocytes # (Manual) Monocytes # (Manual) Eosinophils # (Manual) Nucleated RBC % Basophils # (Manual) PT INR APTT Heparin Anti-Xa Level ABG pH POC ABG pO2 ABG pO2 ABG HCO3 ABG O2 Saturation ABG Base Excess POC ABG pCO2 ABG Hemoglobin ABG Oxyhemoglobin ABG Sodium ABG Chloride ABG Glucose Oxyhemoglobin Sodium Potassium Chloride 107.9 H Carbon Dioxide BUN 38 H Creatinine 0.6 L Glucose 151 H POC Glucose 123 H 152 H Lactic Acid Calcium Phosphorus Magnesium AST ALT Lactate Dehydrogenase Total Bilirubin Direct Bilirubin CK-MB (CK-2) C-Reactive Protein NT-Pro-B Natriuret Pep Total Protein Albumin Arterial Blood Glucose Urine WBC (Auto) Urine Creatinine Digoxin 02/16/20 02/17/20 02/17/20 23:49 06:24 11:36 WBC RBC Hgb Hct MCHC RDW MCV MCH Lymph % (Auto) [place] % (Auto) [place] # Eos # Lymph # (Auto) [place] # (Auto) Eos # (Auto) Seg Neutrophils % Seg Neuts % (Manual) Baso # (Auto) Lymphocytes % (Manual) Monocytes % (Manual) Eosinophils % (Manual) Basophils % (Manual) Seg Neutrophils # Seg Neutrophils # Man Lymphocytes # (Manual) Monocytes # (Manual) Eosinophils # (Manual) Nucleated RBC % Basophils # (Manual) PT INR APTT Heparin Anti-Xa Level ABG pH POC ABG pO2 ABG pO2 ABG HCO3 ABG O2 Saturation ABG Base Excess POC ABG pCO2 ABG Hemoglobin ABG Oxyhemoglobin ABG Sodium ABG Chloride ABG Glucose Oxyhemoglobin Sodium Potassium Chloride Carbon Dioxide BUN Creatinine Glucose POC Glucose 156 H 193 H 162 H Lactic Acid Calcium Phosphorus Magnesium AST ALT Lactate Dehydrogenase Total Bilirubin Direct Bilirubin CK-MB (CK-2) C-Reactive Protein NT-Pro-B Natriuret Pep Total Protein Albumin Arterial Blood Glucose Urine WBC (Auto) Urine Creatinine Digoxin 02/17/20 02/17/20 02/18/20 17:55 23:28 05:11 WBC RBC Hgb Hct MCHC RDW MCV MCH Lymph % (Auto) [place] % (Auto) [place] # Eos # Lymph # (Auto) [place] # (Auto) Eos # (Auto) Seg Neutrophils % Seg Neuts % (Manual) Baso # (Auto) Lymphocytes % (Manual) Monocytes % (Manual) Eosinophils % (Manual) Basophils % (Manual) Seg Neutrophils # Seg Neutrophils # Man Lymphocytes # (Manual) Monocytes # (Manual) Eosinophils # (Manual) Nucleated RBC % Basophils # (Manual) PT INR APTT Heparin Anti-Xa Level ABG pH POC ABG pO2 ABG pO2 ABG HCO3 ABG O2 Saturation ABG Base Excess POC ABG pCO2 ABG Hemoglobin ABG Oxyhemoglobin ABG Sodium ABG Chloride ABG Glucose Oxyhemoglobin Sodium Potassium Chloride Carbon Dioxide BUN Creatinine Glucose POC Glucose 165 H 146 H 122 H Lactic Acid Calcium Phosphorus Magnesium AST ALT Lactate Dehydrogenase Total Bilirubin Direct Bilirubin CK-MB (CK-2) C-Reactive Protein NT-Pro-B Natriuret Pep Total Protein Albumin Arterial Blood Glucose Urine WBC (Auto) Urine Creatinine Digoxin 02/18/20 02/18/20 02/19/20 12:24 17:29 00:01 WBC RBC Hgb Hct MCHC RDW MCV MCH Lymph % (Auto) [place] % (Auto) [place] # Eos # Lymph # (Auto) [place] # (Auto) Eos # (Auto) Seg Neutrophils % Seg Neuts % (Manual) Baso # (Auto) Lymphocytes % (Manual) Monocytes % (Manual) Eosinophils % (Manual) Basophils % (Manual) Seg Neutrophils # Seg Neutrophils # Man Lymphocytes # (Manual) Monocytes # (Manual) Eosinophils # (Manual) Nucleated RBC % Basophils # (Manual) PT INR APTT Heparin Anti-Xa Level ABG pH POC ABG pO2 ABG pO2 ABG HCO3 ABG O2 Saturation ABG Base Excess POC ABG pCO2 ABG Hemoglobin ABG Oxyhemoglobin ABG Sodium ABG Chloride ABG Glucose Oxyhemoglobin Sodium Potassium Chloride Carbon Dioxide BUN Creatinine Glucose POC Glucose 162 H 136 H 145 H Lactic Acid Calcium Phosphorus Magnesium AST ALT Lactate Dehydrogenase Total Bilirubin Direct Bilirubin CK-MB (CK-2) C-Reactive Protein NT-Pro-B Natriuret Pep Total Protein Albumin Arterial Blood Glucose Urine WBC (Auto) Urine Creatinine Digoxin 02/19/20 02/19/20 02/19/20 05:53 11:44 17:32 WBC RBC Hgb Hct MCHC RDW MCV MCH Lymph % (Auto) [place] % (Auto) [place] # Eos # Lymph # (Auto) [place] # (Auto) Eos # (Auto) Seg Neutrophils % Seg Neuts % (Manual) Baso # (Auto) Lymphocytes % (Manual) Monocytes % (Manual) Eosinophils % (Manual) Basophils % (Manual) Seg Neutrophils # Seg Neutrophils # Man Lymphocytes # (Manual) Monocytes # (Manual) Eosinophils # (Manual) Nucleated RBC % Basophils # (Manual) PT INR APTT Heparin Anti-Xa Level ABG pH POC ABG pO2 ABG pO2 ABG HCO3 ABG O2 Saturation ABG Base Excess POC ABG pCO2 ABG Hemoglobin ABG Oxyhemoglobin ABG Sodium ABG Chloride ABG Glucose Oxyhemoglobin Sodium Potassium Chloride Carbon Dioxide BUN Creatinine Glucose POC Glucose 116 H 120 H 154 H Lactic Acid Calcium Phosphorus Magnesium AST ALT Lactate Dehydrogenase Total Bilirubin Direct Bilirubin CK-MB (CK-2) C-Reactive Protein NT-Pro-B Natriuret Pep Total Protein Albumin Arterial Blood Glucose Urine WBC (Auto) Urine Creatinine Digoxin 02/19/20 02/20/20 02/20/20 23:43 00:24 00:24 WBC RBC Hgb 9.4 L Hct 30.0 L MCHC 31 L RDW 20.4 H MCV 79 L MCH 25 L Lymph % (Auto) [place] % (Auto) 8.5 H [place] # Eos # Lymph # (Auto) [place] # (Auto) Eos # (Auto) Seg Neutrophils % Seg Neuts % (Manual) Baso # (Auto) Lymphocytes % (Manual) Monocytes % (Manual) Eosinophils % (Manual) Basophils % (Manual) Seg Neutrophils # Seg Neutrophils # Man Lymphocytes # (Manual) Monocytes # (Manual) Eosinophils # (Manual) Nucleated RBC % Basophils # (Manual) PT INR APTT Heparin Anti-Xa Level ABG pH POC ABG pO2 ABG pO2 ABG HCO3 ABG O2 Saturation ABG Base Excess POC ABG pCO2 ABG Hemoglobin ABG Oxyhemoglobin ABG Sodium ABG Chloride ABG Glucose Oxyhemoglobin Sodium 147 H Potassium 3.4 L Chloride Carbon Dioxide 31 H BUN 34 H Creatinine 0.5 L Glucose 135 H POC Glucose 122 H Lactic Acid Calcium Phosphorus Magnesium AST ALT Lactate Dehydrogenase Total Bilirubin Direct Bilirubin CK-MB (CK-2) C-Reactive Protein NT-Pro-B Natriuret Pep Total Protein Albumin Arterial Blood Glucose Urine WBC (Auto) Urine Creatinine Digoxin 02/20/20 02/20/20 02/20/20 06:07 06:45 12:03 WBC RBC Hgb Hct MCHC RDW MCV MCH Lymph % (Auto) [place] % (Auto) [place] # Eos # Lymph # (Auto) [place] # (Auto) Eos # (Auto) Seg Neutrophils % Seg Neuts % (Manual) Baso # (Auto) Lymphocytes % (Manual) Monocytes % (Manual) Eosinophils % (Manual) Basophils % (Manual) Seg Neutrophils # Seg Neutrophils # Man Lymphocytes # (Manual) Monocytes # (Manual) Eosinophils # (Manual) Nucleated RBC % Basophils # (Manual) PT INR APTT Heparin Anti-Xa Level ABG pH 7.461 H POC ABG pO2 ABG pO2 ABG HCO3 33.3 H ABG O2 Saturation ABG Base Excess 8.4 H POC ABG pCO2 ABG Hemoglobin 10.0 L ABG Oxyhemoglobin ABG Sodium ABG Chloride ABG Glucose Oxyhemoglobin 94.1 L Sodium Potassium Chloride Carbon Dioxide BUN Creatinine Glucose POC Glucose 109 H 128 H Lactic Acid Calcium Phosphorus Magnesium AST ALT Lactate Dehydrogenase Total Bilirubin Direct Bilirubin CK-MB (CK-2) C-Reactive Protein NT-Pro-B Natriuret Pep Total Protein Albumin Arterial Blood Glucose Urine WBC (Auto) Urine Creatinine Digoxin 02/20/20 02/20/20 02/21/20 18:02 23:55 05:42 WBC RBC Hgb Hct MCHC RDW MCV MCH Lymph % (Auto) [place] % (Auto) [place] # Eos # Lymph # (Auto) [place] # (Auto) Eos # (Auto) Seg Neutrophils % Seg Neuts % (Manual) Baso # (Auto) Lymphocytes % (Manual) Monocytes % (Manual) Eosinophils % (Manual) Basophils % (Manual) Seg Neutrophils # Seg Neutrophils # Man Lymphocytes # (Manual) Monocytes # (Manual) Eosinophils # (Manual) Nucleated RBC % Basophils # (Manual) PT INR APTT Heparin Anti-Xa Level ABG pH POC ABG pO2 ABG pO2 ABG HCO3 ABG O2 Saturation ABG Base Excess POC ABG pCO2 ABG Hemoglobin ABG Oxyhemoglobin ABG Sodium ABG Chloride ABG Glucose Oxyhemoglobin Sodium Potassium Chloride Carbon Dioxide BUN Creatinine Glucose POC Glucose 118 H 125 H 127 H Lactic Acid Calcium Phosphorus Magnesium AST ALT Lactate Dehydrogenase Total Bilirubin Direct Bilirubin CK-MB (CK-2) C-Reactive Protein NT-Pro-B Natriuret Pep Total Protein Albumin Arterial Blood Glucose Urine WBC (Auto) Urine Creatinine Digoxin 02/21/20 02/21/20 02/21/20 12:10 17:35 23:40 WBC RBC Hgb Hct MCHC RDW MCV MCH Lymph % (Auto) [place] % (Auto) [place] # Eos # Lymph # (Auto) [place] # (Auto) Eos # (Auto) Seg Neutrophils % Seg Neuts % (Manual) Baso # (Auto) Lymphocytes % (Manual) Monocytes % (Manual) Eosinophils % (Manual) Basophils % (Manual) Seg Neutrophils # Seg Neutrophils # Man Lymphocytes # (Manual) Monocytes # (Manual) Eosinophils # (Manual) Nucleated RBC % Basophils # (Manual) PT INR APTT Heparin Anti-Xa Level ABG pH POC ABG pO2 ABG pO2 ABG HCO3 ABG O2 Saturation ABG Base Excess POC ABG pCO2 ABG Hemoglobin ABG Oxyhemoglobin ABG Sodium ABG Chloride ABG Glucose Oxyhemoglobin Sodium Potassium Chloride Carbon Dioxide BUN Creatinine Glucose POC Glucose 128 H 113 H 125 H Lactic Acid Calcium Phosphorus Magnesium AST ALT Lactate Dehydrogenase Total Bilirubin Direct Bilirubin CK-MB (CK-2) C-Reactive Protein NT-Pro-B Natriuret Pep Total Protein Albumin Arterial Blood Glucose Urine WBC (Auto) Urine Creatinine Digoxin 02/22/20 02/22/20 02/22/20 05:57 08:06 08:06 WBC RBC Hgb 10.8 L Hct 35.2 L MCHC 31 L RDW 21.8 H MCV 80 L MCH 25 L Lymph % (Auto) [place] % (Auto) [place] # Eos # Lymph # (Auto) [place] # (Auto) Eos # (Auto) Seg Neutrophils % 71.5 H Seg Neuts % (Manual) Baso # (Auto) Lymphocytes % (Manual) Monocytes % (Manual) Eosinophils % (Manual) Basophils % (Manual) Seg Neutrophils # Seg Neutrophils # Man Lymphocytes # (Manual) Monocytes # (Manual) Eosinophils # (Manual) Nucleated RBC % Basophils # (Manual) PT INR APTT Heparin Anti-Xa Level ABG pH POC ABG pO2 ABG pO2 ABG HCO3 ABG O2 Saturation ABG Base Excess POC ABG pCO2 ABG Hemoglobin ABG Oxyhemoglobin ABG Sodium ABG Chloride ABG Glucose Oxyhemoglobin Sodium 146 H Potassium Chloride Carbon Dioxide 34 H BUN 21 H Creatinine 0.4 L Glucose 149 H POC Glucose 138 H Lactic Acid Calcium Phosphorus Magnesium AST ALT Lactate Dehydrogenase Total Bilirubin Direct Bilirubin CK-MB (CK-2) C-Reactive Protein NT-Pro-B Natriuret Pep Total Protein Albumin Arterial Blood Glucose Urine WBC (Auto) Urine Creatinine Digoxin 02/22/20 02/22/20 02/22/20 11:47 17:11 23:25 WBC RBC Hgb Hct MCHC RDW MCV MCH Lymph % (Auto) [place] % (Auto) [place] # Eos # Lymph # (Auto) [place] # (Auto) Eos # (Auto) Seg Neutrophils % Seg Neuts % (Manual) Baso # (Auto) Lymphocytes % (Manual) Monocytes % (Manual) Eosinophils % (Manual) Basophils % (Manual) Seg Neutrophils # Seg Neutrophils # Man Lymphocytes # (Manual) Monocytes # (Manual) Eosinophils # (Manual) Nucleated RBC % Basophils # (Manual) PT INR APTT Heparin Anti-Xa Level ABG pH POC ABG pO2 ABG pO2 ABG HCO3 ABG O2 Saturation ABG Base Excess POC ABG pCO2 ABG Hemoglobin ABG Oxyhemoglobin ABG Sodium ABG Chloride ABG Glucose Oxyhemoglobin Sodium Potassium Chloride Carbon Dioxide BUN Creatinine Glucose POC Glucose 149 H 144 H 142 H Lactic Acid Calcium Phosphorus Magnesium AST ALT Lactate Dehydrogenase Total Bilirubin Direct Bilirubin CK-MB (CK-2) C-Reactive Protein NT-Pro-B Natriuret Pep Total Protein Albumin Arterial Blood Glucose Urine WBC (Auto) Urine Creatinine Digoxin 02/23/20 02/23/20 02/23/20 05:22 11:37 18:14 WBC RBC Hgb Hct MCHC RDW MCV MCH Lymph % (Auto) [place] % (Auto) [place] # Eos # Lymph # (Auto) [place] # (Auto) Eos # (Auto) Seg Neutrophils % Seg Neuts % (Manual) Baso # (Auto) Lymphocytes % (Manual) Monocytes % (Manual) Eosinophils % (Manual) Basophils % (Manual) Seg Neutrophils # Seg Neutrophils # Man Lymphocytes # (Manual) Monocytes # (Manual) Eosinophils # (Manual) Nucleated RBC % Basophils # (Manual) PT INR APTT Heparin Anti-Xa Level ABG pH POC ABG pO2 ABG pO2 ABG HCO3 ABG O2 Saturation ABG Base Excess POC ABG pCO2 ABG Hemoglobin ABG Oxyhemoglobin ABG Sodium ABG Chloride ABG Glucose Oxyhemoglobin Sodium Potassium Chloride Carbon Dioxide BUN Creatinine Glucose POC Glucose 144 H 113 H 127 H Lactic Acid Calcium Phosphorus Magnesium AST ALT Lactate Dehydrogenase Total Bilirubin Direct Bilirubin CK-MB (CK-2) C-Reactive Protein NT-Pro-B Natriuret Pep Total Protein Albumin Arterial Blood Glucose Urine WBC (Auto) Urine Creatinine Digoxin 02/23/20 02/24/20 02/24/20 23:45 05:50 11:24 WBC RBC Hgb Hct MCHC RDW MCV MCH Lymph % (Auto) [place] % (Auto) [place] # Eos # Lymph # (Auto) [place] # (Auto) Eos # (Auto) Seg Neutrophils % Seg Neuts % (Manual) Baso # (Auto) Lymphocytes % (Manual) Monocytes % (Manual) Eosinophils % (Manual) Basophils % (Manual) Seg Neutrophils # Seg Neutrophils # Man Lymphocytes # (Manual) Monocytes # (Manual) Eosinophils # (Manual) Nucleated RBC % Basophils # (Manual) PT INR APTT Heparin Anti-Xa Level ABG pH POC ABG pO2 ABG pO2 ABG HCO3 ABG O2 Saturation ABG Base Excess POC ABG pCO2 ABG Hemoglobin ABG Oxyhemoglobin ABG Sodium ABG Chloride ABG Glucose Oxyhemoglobin Sodium Potassium Chloride Carbon Dioxide BUN Creatinine Glucose POC Glucose 123 H 117 H 126 H Lactic Acid Calcium Phosphorus Magnesium AST ALT Lactate Dehydrogenase Total Bilirubin Direct Bilirubin CK-MB (CK-2) C-Reactive Protein NT-Pro-B Natriuret Pep Total Protein Albumin Arterial Blood Glucose Urine WBC (Auto) Urine Creatinine Digoxin 02/24/20 02/24/20 02/25/20 18:35 23:27 05:20 WBC RBC Hgb Hct MCHC RDW MCV MCH Lymph % (Auto) [place] % (Auto) [place] # Eos # Lymph # (Auto) [place] # (Auto) Eos # (Auto) Seg Neutrophils % Seg Neuts % (Manual) Baso # (Auto) Lymphocytes % (Manual) Monocytes % (Manual) Eosinophils % (Manual) Basophils % (Manual) Seg Neutrophils # Seg Neutrophils # Man Lymphocytes # (Manual) Monocytes # (Manual) Eosinophils # (Manual) Nucleated RBC % Basophils # (Manual) PT INR APTT Heparin Anti-Xa Level ABG pH POC ABG pO2 ABG pO2 ABG HCO3 ABG O2 Saturation ABG Base Excess POC ABG pCO2 ABG Hemoglobin ABG Oxyhemoglobin ABG Sodium ABG Chloride ABG Glucose Oxyhemoglobin Sodium Potassium Chloride Carbon Dioxide BUN Creatinine Glucose POC Glucose 121 H 127 H 133 H Lactic Acid Calcium Phosphorus Magnesium AST ALT Lactate Dehydrogenase Total Bilirubin Direct Bilirubin CK-MB (CK-2) C-Reactive Protein NT-Pro-B Natriuret Pep Total Protein Albumin Arterial Blood Glucose Urine WBC (Auto) Urine Creatinine Digoxin 02/25/20 02/25/20 02/25/20 12:08 17:26 23:33 WBC RBC Hgb Hct MCHC RDW MCV MCH Lymph % (Auto) [place] % (Auto) [place] # Eos # Lymph # (Auto) [place] # (Auto) Eos # (Auto) Seg Neutrophils % Seg Neuts % (Manual) Baso # (Auto) Lymphocytes % (Manual) Monocytes % (Manual) Eosinophils % (Manual) Basophils % (Manual) Seg Neutrophils # Seg Neutrophils # Man Lymphocytes # (Manual) Monocytes # (Manual) Eosinophils # (Manual) Nucleated RBC % Basophils # (Manual) PT INR APTT Heparin Anti-Xa Level ABG pH POC ABG pO2 ABG pO2 ABG HCO3 ABG O2 Saturation ABG Base Excess POC ABG pCO2 ABG Hemoglobin ABG Oxyhemoglobin ABG Sodium ABG Chloride ABG Glucose Oxyhemoglobin Sodium Potassium Chloride Carbon Dioxide BUN Creatinine Glucose POC Glucose 109 H 120 H 120 H Lactic Acid Calcium Phosphorus Magnesium AST ALT Lactate Dehydrogenase Total Bilirubin Direct Bilirubin CK-MB (CK-2) C-Reactive Protein NT-Pro-B Natriuret Pep Total Protein Albumin Arterial Blood Glucose Urine WBC (Auto) Urine Creatinine Digoxin 02/26/20 02/26/20 02/27/20 05:33 07:50 12:13 WBC RBC Hgb Hct MCHC RDW MCV MCH Lymph % (Auto) [place] % (Auto) [place] # Eos # Lymph # (Auto) [place] # (Auto) Eos # (Auto) Seg Neutrophils % Seg Neuts % (Manual) Baso # (Auto) Lymphocytes % (Manual) Monocytes % (Manual) Eosinophils % (Manual) Basophils % (Manual) Seg Neutrophils # Seg Neutrophils # Man Lymphocytes # (Manual) Monocytes # (Manual) Eosinophils # (Manual) Nucleated RBC % Basophils # (Manual) PT INR APTT Heparin Anti-Xa Level ABG pH POC ABG pO2 ABG pO2 ABG HCO3 ABG O2 Saturation ABG Base Excess POC ABG pCO2 ABG Hemoglobin ABG Oxyhemoglobin ABG Sodium ABG Chloride ABG Glucose Oxyhemoglobin Sodium Potassium Chloride Carbon Dioxide BUN Creatinine Glucose POC Glucose 106 H 130 H Lactic Acid Calcium Phosphorus Magnesium AST ALT Lactate Dehydrogenase Total Bilirubin Direct Bilirubin CK-MB (CK-2) C-Reactive Protein NT-Pro-B Natriuret Pep Total Protein Albumin Arterial Blood Glucose Urine WBC (Auto) > 182.0 H Urine Creatinine Digoxin 02/27/20 02/27/20 02/28/20 18:20 23:33 05:01 WBC RBC Hgb Hct MCHC RDW MCV MCH Lymph % (Auto) [place] % (Auto) [place] # Eos # Lymph # (Auto) [place] # (Auto) Eos # (Auto) Seg Neutrophils % Seg Neuts % (Manual) Baso # (Auto) Lymphocytes % (Manual) Monocytes % (Manual) Eosinophils % (Manual) Basophils % (Manual) Seg Neutrophils # Seg Neutrophils # Man Lymphocytes # (Manual) Monocytes # (Manual) Eosinophils # (Manual) Nucleated RBC % Basophils # (Manual) PT INR APTT Heparin Anti-Xa Level ABG pH POC ABG pO2 ABG pO2 ABG HCO3 ABG O2 Saturation ABG Base Excess POC ABG pCO2 ABG Hemoglobin ABG Oxyhemoglobin ABG Sodium ABG Chloride ABG Glucose Oxyhemoglobin Sodium Potassium Chloride Carbon Dioxide BUN Creatinine Glucose POC Glucose 109 H 124 H 134 H Lactic Acid Calcium Phosphorus Magnesium AST ALT Lactate Dehydrogenase Total Bilirubin Direct Bilirubin CK-MB (CK-2) C-Reactive Protein NT-Pro-B Natriuret Pep Total Protein Albumin Arterial Blood Glucose Urine WBC (Auto) Urine Creatinine Digoxin 02/28/20 02/28/20 02/28/20 11:54 18:16 23:03 WBC RBC Hgb Hct MCHC RDW MCV MCH Lymph % (Auto) [place] % (Auto) [place] # Eos # Lymph # (Auto) [place] # (Auto) Eos # (Auto) Seg Neutrophils % Seg Neuts % (Manual) Baso # (Auto) Lymphocytes % (Manual) Monocytes % (Manual) Eosinophils % (Manual) Basophils % (Manual) Seg Neutrophils # Seg Neutrophils # Man Lymphocytes # (Manual) Monocytes # (Manual) Eosinophils # (Manual) Nucleated RBC % Basophils # (Manual) PT INR APTT Heparin Anti-Xa Level ABG pH POC ABG pO2 ABG pO2 ABG HCO3 ABG O2 Saturation ABG Base Excess POC ABG pCO2 ABG Hemoglobin ABG Oxyhemoglobin ABG Sodium ABG Chloride ABG Glucose Oxyhemoglobin Sodium Potassium Chloride Carbon Dioxide BUN Creatinine Glucose POC Glucose 133 H 134 H 146 H Lactic Acid Calcium Phosphorus Magnesium AST ALT Lactate Dehydrogenase Total Bilirubin Direct Bilirubin CK-MB (CK-2) C-Reactive Protein NT-Pro-B Natriuret Pep Total Protein Albumin Arterial Blood Glucose Urine WBC (Auto) Urine Creatinine Digoxin 02/29/20 02/29/20 02/29/20 05:24 11:34 17:12 WBC RBC Hgb Hct MCHC RDW MCV MCH Lymph % (Auto) [place] % (Auto) [place] # Eos # Lymph # (Auto) [place] # (Auto) Eos # (Auto) Seg Neutrophils % Seg Neuts % (Manual) Baso # (Auto) Lymphocytes % (Manual) Monocytes % (Manual) Eosinophils % (Manual) Basophils % (Manual) Seg Neutrophils # Seg Neutrophils # Man Lymphocytes # (Manual) Monocytes # (Manual) Eosinophils # (Manual) Nucleated RBC % Basophils # (Manual) PT INR APTT Heparin Anti-Xa Level ABG pH POC ABG pO2 ABG pO2 ABG HCO3 ABG O2 Saturation ABG Base Excess POC ABG pCO2 ABG Hemoglobin ABG Oxyhemoglobin ABG Sodium ABG Chloride ABG Glucose Oxyhemoglobin Sodium Potassium Chloride Carbon Dioxide BUN Creatinine Glucose POC Glucose 139 H 141 H 157 H Lactic Acid Calcium Phosphorus Magnesium AST ALT Lactate Dehydrogenase Total Bilirubin Direct Bilirubin CK-MB (CK-2) C-Reactive Protein NT-Pro-B Natriuret Pep Total Protein Albumin Arterial Blood Glucose Urine WBC (Auto) Urine Creatinine Digoxin 02/29/20 03/01/20 03/01/20 23:35 06:00 11:53 WBC RBC Hgb Hct MCHC RDW MCV MCH Lymph % (Auto) [place] % (Auto) [place] # Eos # Lymph # (Auto) [place] # (Auto) Eos # (Auto) Seg Neutrophils % Seg Neuts % (Manual) Baso # (Auto) Lymphocytes % (Manual) Monocytes % (Manual) Eosinophils % (Manual) Basophils % (Manual) Seg Neutrophils # Seg Neutrophils # Man Lymphocytes # (Manual) Monocytes # (Manual) Eosinophils # (Manual) Nucleated RBC % Basophils # (Manual) PT INR APTT Heparin Anti-Xa Level ABG pH POC ABG pO2 ABG pO2 ABG HCO3 ABG O2 Saturation ABG Base Excess POC ABG pCO2 ABG Hemoglobin ABG Oxyhemoglobin ABG Sodium ABG Chloride ABG Glucose Oxyhemoglobin Sodium Potassium Chloride Carbon Dioxide BUN Creatinine Glucose POC Glucose 120 H 132 H 136 H Lactic Acid Calcium Phosphorus Magnesium AST ALT Lactate Dehydrogenase Total Bilirubin Direct Bilirubin CK-MB (CK-2) C-Reactive Protein NT-Pro-B Natriuret Pep Total Protein Albumin Arterial Blood Glucose Urine WBC (Auto) Urine Creatinine Digoxin 03/01/20 03/01/2020 17:36 23:16 05:12 WBC RBC Hgb Hct MCHC RDW MCV MCH Lymph % (Auto) [place] % (Auto) [place] # Eos # Lymph # (Auto) [place] # (Auto) Eos # (Auto) Seg Neutrophils % Seg Neuts % (Manual) Baso # (Auto) Lymphocytes % (Manual) Monocytes % (Manual) Eosinophils % (Manual) Basophils % (Manual) Seg Neutrophils # Seg Neutrophils # Man Lymphocytes # (Manual) Monocytes # (Manual) Eosinophils # (Manual) Nucleated RBC % Basophils # (Manual) PT INR APTT Heparin Anti-Xa Level ABG pH POC ABG pO2 ABG pO2 ABG HCO3 ABG O2 Saturation ABG Base Excess POC ABG pCO2 ABG Hemoglobin ABG Oxyhemoglobin ABG Sodium ABG Chloride ABG Glucose Oxyhemoglobin Sodium Potassium Chloride Carbon Dioxide BUN Creatinine Glucose POC Glucose 171 H 164 H 176 H Lactic Acid Calcium Phosphorus Magnesium AST ALT Lactate Dehydrogenase Total Bilirubin Direct Bilirubin CK-MB (CK-2) C-Reactive Protein NT-Pro-B Natriuret Pep Total Protein Albumin Arterial Blood Glucose Urine WBC (Auto) Urine Creatinine Digoxin 03/02/20 03/02/20 03/03/20 11:42 18:01 00:06 WBC RBC Hgb Hct MCHC RDW MCV MCH Lymph % (Auto) [place] % (Auto) [place] # Eos # Lymph # (Auto) [place] # (Auto) Eos # (Auto) Seg Neutrophils % Seg Neuts % (Manual) Baso # (Auto) Lymphocytes % (Manual) Monocytes % (Manual) Eosinophils % (Manual) Basophils % (Manual) Seg Neutrophils # Seg Neutrophils # Man Lymphocytes # (Manual) Monocytes # (Manual) Eosinophils # (Manual) Nucleated RBC % Basophils # (Manual) PT INR APTT Heparin Anti-Xa Level ABG pH POC ABG pO2 ABG pO2 ABG HCO3 ABG O2 Saturation ABG Base Excess POC ABG pCO2 ABG Hemoglobin ABG Oxyhemoglobin ABG Sodium ABG Chloride ABG Glucose Oxyhemoglobin Sodium Potassium Chloride Carbon Dioxide BUN Creatinine Glucose POC Glucose 150 H 156 H 156 H Lactic Acid Calcium Phosphorus Magnesium AST ALT Lactate Dehydrogenase Total Bilirubin Direct Bilirubin CK-MB (CK-2) C-Reactive Protein NT-Pro-B Natriuret Pep Total Protein Albumin Arterial Blood Glucose Urine WBC (Auto) Urine Creatinine Digoxin 03/03/20 03/03/20 03/03/20 03:31 11:20 16:55 WBC RBC Hgb Hct MCHC RDW MCV MCH Lymph % (Auto) [place] % (Auto) [place] # Eos # Lymph # (Auto) [place] # (Auto) Eos # (Auto) Seg Neutrophils % Seg Neuts % (Manual) Baso # (Auto) Lymphocytes % (Manual) Monocytes % (Manual) Eosinophils % (Manual) Basophils % (Manual) Seg Neutrophils # Seg Neutrophils # Man Lymphocytes # (Manual) Monocytes # (Manual) Eosinophils # (Manual) Nucleated RBC % Basophils # (Manual) PT INR APTT Heparin Anti-Xa Level ABG pH POC ABG pO2 ABG pO2 ABG HCO3 ABG O2 Saturation ABG Base Excess POC ABG pCO2 ABG Hemoglobin ABG Oxyhemoglobin ABG Sodium ABG Chloride ABG Glucose Oxyhemoglobin Sodium Potassium Chloride Carbon Dioxide BUN Creatinine Glucose POC Glucose 164 H 125 H 211 H Lactic Acid Calcium Phosphorus Magnesium AST ALT Lactate Dehydrogenase Total Bilirubin Direct Bilirubin CK-MB (CK-2) C-Reactive Protein NT-Pro-B Natriuret Pep Total Protein Albumin Arterial Blood Glucose Urine WBC (Auto) Urine Creatinine Digoxin 03/04/20 03/04/20 03/04/20 00:29 05:20 12:09 WBC RBC Hgb Hct MCHC RDW MCV MCH Lymph % (Auto) [place] % (Auto) [place] # Eos # Lymph # (Auto) [place] # (Auto) Eos # (Auto) Seg Neutrophils % Seg Neuts % (Manual) Baso # (Auto) Lymphocytes % (Manual) Monocytes % (Manual) Eosinophils % (Manual) Basophils % (Manual) Seg Neutrophils # Seg Neutrophils # Man Lymphocytes # (Manual) Monocytes # (Manual) Eosinophils # (Manual) Nucleated RBC % Basophils # (Manual) PT INR APTT Heparin Anti-Xa Level ABG pH POC ABG pO2 ABG pO2 ABG HCO3 ABG O2 Saturation ABG Base Excess POC ABG pCO2 ABG Hemoglobin ABG Oxyhemoglobin ABG Sodium ABG Chloride ABG Glucose Oxyhemoglobin Sodium Potassium Chloride Carbon Dioxide BUN Creatinine Glucose POC Glucose 169 H 154 H 197 H Lactic Acid Calcium Phosphorus Magnesium AST ALT Lactate Dehydrogenase Total Bilirubin Direct Bilirubin CK-MB (CK-2) C-Reactive Protein NT-Pro-B Natriuret Pep Total Protein Albumin Arterial Blood Glucose Urine WBC (Auto) Urine Creatinine Digoxin 03/04/20 03/04/20 03/04/20 18:00 20:38 20:38 WBC RBC Hgb 10.1 L Hct 32.7 L MCHC 31 L RDW 24.7 H MCV 79 L MCH 24 L Lymph % (Auto) [place] % (Auto) 8.9 H [place] # Eos # Lymph # (Auto) [place] # (Auto) Eos # (Auto) Seg Neutrophils % Seg Neuts % (Manual) Baso # (Auto) Lymphocytes % (Manual) Monocytes % (Manual) Eosinophils % (Manual) Basophils % (Manual) Seg Neutrophils # Seg Neutrophils # Man Lymphocytes # (Manual) Monocytes # (Manual) Eosinophils # (Manual) Nucleated RBC % Basophils # (Manual) PT INR APTT Heparin Anti-Xa Level ABG pH POC ABG pO2 ABG pO2 ABG HCO3 ABG O2 Saturation ABG Base Excess POC ABG pCO2 ABG Hemoglobin ABG Oxyhemoglobin ABG Sodium ABG Chloride ABG Glucose Oxyhemoglobin Sodium 136 L Potassium Chloride Carbon Dioxide BUN 25 H Creatinine 0.5 L Glucose 148 H POC Glucose 146 H Lactic Acid Calcium Phosphorus Magnesium AST ALT Lactate Dehydrogenase Total Bilirubin Direct Bilirubin CK-MB (CK-2) C-Reactive Protein NT-Pro-B Natriuret Pep Total Protein Albumin Arterial Blood Glucose Urine WBC (Auto) Urine Creatinine Digoxin 03/04/20 03/05/20 03/05/20 23:17 05:44 11:32 WBC RBC Hgb Hct MCHC RDW MCV MCH Lymph % (Auto) [place] % (Auto) [place] # Eos # Lymph # (Auto) [place] # (Auto) Eos # (Auto) Seg Neutrophils % Seg Neuts % (Manual) Baso # (Auto) Lymphocytes % (Manual) Monocytes % (Manual) Eosinophils % (Manual) Basophils % (Manual) Seg Neutrophils # Seg Neutrophils # Man Lymphocytes # (Manual) Monocytes # (Manual) Eosinophils # (Manual) Nucleated RBC % Basophils # (Manual) PT INR APTT Heparin Anti-Xa Level ABG pH POC ABG pO2 ABG pO2 ABG HCO3 ABG O2 Saturation ABG Base Excess POC ABG pCO2 ABG Hemoglobin ABG Oxyhemoglobin ABG Sodium ABG Chloride ABG Glucose Oxyhemoglobin Sodium Potassium Chloride Carbon Dioxide BUN Creatinine Glucose POC Glucose 139 H 155 H 124 H Lactic Acid Calcium Phosphorus Magnesium AST ALT Lactate Dehydrogenase Total Bilirubin Direct Bilirubin CK-MB (CK-2) C-Reactive Protein NT-Pro-B Natriuret Pep Total Protein Albumin Arterial Blood Glucose Urine WBC (Auto) Urine Creatinine Digoxin 03/05/20 03/05/20 03/06/20 17:45 23:18 12:16 WBC RBC Hgb Hct MCHC RDW MCV MCH Lymph % (Auto) [place] % (Auto) [place] # Eos # Lymph # (Auto) [place] # (Auto) Eos # (Auto) Seg Neutrophils % Seg Neuts % (Manual) Baso # (Auto) Lymphocytes % (Manual) Monocytes % (Manual) Eosinophils % (Manual) Basophils % (Manual) Seg Neutrophils # Seg Neutrophils # Man Lymphocytes # (Manual) Monocytes # (Manual) Eosinophils # (Manual) Nucleated RBC % Basophils # (Manual) PT INR APTT Heparin Anti-Xa Level ABG pH POC ABG pO2 ABG pO2 ABG HCO3 ABG O2 Saturation ABG Base Excess POC ABG pCO2 ABG Hemoglobin ABG Oxyhemoglobin ABG Sodium ABG Chloride ABG Glucose Oxyhemoglobin Sodium Potassium Chloride Carbon Dioxide BUN Creatinine Glucose POC Glucose 171 H 114 H 155 H Lactic Acid Calcium Phosphorus Magnesium AST ALT Lactate Dehydrogenase Total Bilirubin Direct Bilirubin CK-MB (CK-2) C-Reactive Protein NT-Pro-B Natriuret Pep Total Protein Albumin Arterial Blood Glucose Urine WBC (Auto) Urine Creatinine Digoxin 03/06/20 03/06/20 03/07/20 17:27 23:48 06:02 WBC RBC Hgb Hct MCHC RDW MCV MCH Lymph % (Auto) [place] % (Auto) [place] # Eos # Lymph # (Auto) [place] # (Auto) Eos # (Auto) Seg Neutrophils % Seg Neuts % (Manual) Baso # (Auto) Lymphocytes % (Manual) Monocytes % (Manual) Eosinophils % (Manual) Basophils % (Manual) Seg Neutrophils # Seg Neutrophils # Man Lymphocytes # (Manual) Monocytes # (Manual) Eosinophils # (Manual) Nucleated RBC % Basophils # (Manual) PT INR APTT Heparin Anti-Xa Level ABG pH POC ABG pO2 ABG pO2 ABG HCO3 ABG O2 Saturation ABG Base Excess POC ABG pCO2 ABG Hemoglobin ABG Oxyhemoglobin ABG Sodium ABG Chloride ABG Glucose Oxyhemoglobin Sodium Potassium Chloride Carbon Dioxide BUN Creatinine Glucose POC Glucose 116 H 142 H 161 H Lactic Acid Calcium Phosphorus Magnesium AST ALT Lactate Dehydrogenase Total Bilirubin Direct Bilirubin CK-MB (CK-2) C-Reactive Protein NT-Pro-B Natriuret Pep Total Protein Albumin Arterial Blood Glucose Urine WBC (Auto) Urine Creatinine Digoxin 03/07/20 03/08/20 03/08/20 11:36 05:18 11:51 WBC RBC Hgb Hct MCHC RDW MCV MCH Lymph % (Auto) [place] % (Auto) [place] # Eos # Lymph # (Auto) [place] # (Auto) Eos # (Auto) Seg Neutrophils % Seg Neuts % (Manual) Baso # (Auto) Lymphocytes % (Manual) Monocytes % (Manual) Eosinophils % (Manual) Basophils % (Manual) Seg Neutrophils # Seg Neutrophils # Man Lymphocytes # (Manual) Monocytes # (Manual) Eosinophils # (Manual) Nucleated RBC % Basophils # (Manual) PT INR APTT Heparin Anti-Xa Level ABG pH POC ABG pO2 ABG pO2 ABG HCO3 ABG O2 Saturation ABG Base Excess POC ABG pCO2 ABG Hemoglobin ABG Oxyhemoglobin ABG Sodium ABG Chloride ABG Glucose Oxyhemoglobin Sodium Potassium Chloride Carbon Dioxide BUN Creatinine Glucose POC Glucose 127 H 142 H 135 H Lactic Acid Calcium Phosphorus Magnesium AST ALT Lactate Dehydrogenase Total Bilirubin Direct Bilirubin CK-MB (CK-2) C-Reactive Protein NT-Pro-B Natriuret Pep Total Protein Albumin Arterial Blood Glucose Urine WBC (Auto) Urine Creatinine Digoxin 03/08/20 03/08/20 03/09/20 18:14 23:45 05:36 WBC RBC Hgb Hct MCHC RDW MCV MCH Lymph % (Auto) [place] % (Auto) [place] # Eos # Lymph # (Auto) [place] # (Auto) Eos # (Auto) Seg Neutrophils % Seg Neuts % (Manual) Baso # (Auto) Lymphocytes % (Manual) Monocytes % (Manual) Eosinophils % (Manual) Basophils % (Manual) Seg Neutrophils # Seg Neutrophils # Man Lymphocytes # (Manual) Monocytes # (Manual) Eosinophils # (Manual) Nucleated RBC % Basophils # (Manual) PT INR APTT Heparin Anti-Xa Level ABG pH POC ABG pO2 ABG pO2 ABG HCO3 ABG O2 Saturation ABG Base Excess POC ABG pCO2 ABG Hemoglobin ABG Oxyhemoglobin ABG Sodium ABG Chloride ABG Glucose Oxyhemoglobin Sodium Potassium Chloride Carbon Dioxide BUN Creatinine Glucose POC Glucose 125 H 143 H 158 H Lactic Acid Calcium Phosphorus Magnesium AST ALT Lactate Dehydrogenase Total Bilirubin Direct Bilirubin CK-MB (CK-2) C-Reactive Protein NT-Pro-B Natriuret Pep Total Protein Albumin Arterial Blood Glucose Urine WBC (Auto) Urine Creatinine Digoxin 03/09/20 03/09/20 03/09/20 06:32 06:32 11:34 WBC RBC Hgb 9.8 L Hct 31.6 L MCHC 31 L RDW 23.1 H MCV 80 L MCH 25 L Lymph % (Auto) 35.1 H [place] % (Auto) 11.4 H [place] # Eos # Lymph # (Auto) [place] # (Auto) Eos # (Auto) Seg Neutrophils % Seg Neuts % (Manual) Baso # (Auto) Lymphocytes % (Manual) Monocytes % (Manual) Eosinophils % (Manual) Basophils % (Manual) Seg Neutrophils # Seg Neutrophils # Man Lymphocytes # (Manual) Monocytes # (Manual) Eosinophils # (Manual) Nucleated RBC % Basophils # (Manual) PT INR APTT Heparin Anti-Xa Level ABG pH POC ABG pO2 ABG pO2 ABG HCO3 ABG O2 Saturation ABG Base Excess POC ABG pCO2 ABG Hemoglobin ABG Oxyhemoglobin ABG Sodium ABG Chloride ABG Glucose Oxyhemoglobin Sodium 136 L Potassium Chloride Carbon Dioxide BUN 25 H Creatinine 0.6 L Glucose 170 H POC Glucose 140 H Lactic Acid Calcium Phosphorus Magnesium AST ALT Lactate Dehydrogenase Total Bilirubin Direct Bilirubin CK-MB (CK-2) C-Reactive Protein NT-Pro-B Natriuret Pep Total Protein Albumin Arterial Blood Glucose Urine WBC (Auto) Urine Creatinine Digoxin 03/09/20 03/09/20 03/10/20 18:10 23:11 05:41 WBC RBC Hgb Hct MCHC RDW MCV MCH Lymph % (Auto) [place] % (Auto) [place] # Eos # Lymph # (Auto) [place] # (Auto) Eos # (Auto) Seg Neutrophils % Seg Neuts % (Manual) Baso # (Auto) Lymphocytes % (Manual) Monocytes % (Manual) Eosinophils % (Manual) Basophils % (Manual) Seg Neutrophils # Seg Neutrophils # Man Lymphocytes # (Manual) Monocytes # (Manual) Eosinophils # (Manual) Nucleated RBC % Basophils # (Manual) PT INR APTT Heparin Anti-Xa Level ABG pH POC ABG pO2 ABG pO2 ABG HCO3 ABG O2 Saturation ABG Base Excess POC ABG pCO2 ABG Hemoglobin ABG Oxyhemoglobin ABG Sodium ABG Chloride ABG Glucose Oxyhemoglobin Sodium Potassium Chloride Carbon Dioxide BUN Creatinine Glucose POC Glucose 153 H 111 H 138 H Lactic Acid Calcium Phosphorus Magnesium AST ALT Lactate Dehydrogenase Total Bilirubin Direct Bilirubin CK-MB (CK-2) C-Reactive Protein NT-Pro-B Natriuret Pep Total Protein Albumin Arterial Blood Glucose Urine WBC (Auto) Urine Creatinine Digoxin 03/10/20 03/10/20 03/10/20 11:15 17:58 23:36 WBC RBC Hgb Hct MCHC RDW MCV MCH Lymph % (Auto) [place] % (Auto) [place] # Eos # Lymph # (Auto) [place] # (Auto) Eos # (Auto) Seg Neutrophils % Seg Neuts % (Manual) Baso # (Auto) Lymphocytes % (Manual) Monocytes % (Manual) Eosinophils % (Manual) Basophils % (Manual) Seg Neutrophils # Seg Neutrophils # Man Lymphocytes # (Manual) Monocytes # (Manual) Eosinophils # (Manual) Nucleated RBC % Basophils # (Manual) PT INR APTT Heparin Anti-Xa Level ABG pH POC ABG pO2 ABG pO2 ABG HCO3 ABG O2 Saturation ABG Base Excess POC ABG pCO2 ABG Hemoglobin ABG Oxyhemoglobin ABG Sodium ABG Chloride ABG Glucose Oxyhemoglobin Sodium Potassium Chloride Carbon Dioxide BUN Creatinine Glucose POC Glucose 141 H 149 H 148 H Lactic Acid Calcium Phosphorus Magnesium AST ALT Lactate Dehydrogenase Total Bilirubin Direct Bilirubin CK-MB (CK-2) C-Reactive Protein NT-Pro-B Natriuret Pep Total Protein Albumin Arterial Blood Glucose Urine WBC (Auto) Urine Creatinine Digoxin 03/11/20 03/11/20 03/12/20 05:55 17:43 04:45 WBC RBC Hgb Hct MCHC RDW MCV MCH Lymph % (Auto) [place] % (Auto) [place] # Eos # Lymph # (Auto) [place] # (Auto) Eos # (Auto) Seg Neutrophils % Seg Neuts % (Manual) Baso # (Auto) Lymphocytes % (Manual) Monocytes % (Manual) Eosinophils % (Manual) Basophils % (Manual) Seg Neutrophils # Seg Neutrophils # Man Lymphocytes # (Manual) Monocytes # (Manual) Eosinophils # (Manual) Nucleated RBC % Basophils # (Manual) PT INR APTT Heparin Anti-Xa Level ABG pH 7.454 H POC ABG pO2 69.2 L ABG pO2 ABG HCO3 ABG O2 Saturation ABG Base Excess POC ABG pCO2 ABG Hemoglobin 11.2 L ABG Oxyhemoglobin ABG Sodium 134.7 L ABG Chloride ABG Glucose 151 H Oxyhemoglobin Sodium Potassium Chloride Carbon Dioxide BUN Creatinine Glucose POC Glucose 181 H 107 H Lactic Acid Calcium Phosphorus Magnesium AST ALT Lactate Dehydrogenase Total Bilirubin Direct Bilirubin CK-MB (CK-2) C-Reactive Protein NT-Pro-B Natriuret Pep Total Protein Albumin Arterial Blood Glucose 151 H Urine WBC (Auto) Urine Creatinine Digoxin 03/12/20 03/12/20 03/12/20 05:36 11:36 17:40 WBC RBC Hgb Hct MCHC RDW MCV MCH Lymph % (Auto) [place] % (Auto) [place] # Eos # Lymph # (Auto) [place] # (Auto) Eos # (Auto) Seg Neutrophils % Seg Neuts % (Manual) Baso # (Auto) Lymphocytes % (Manual) Monocytes % (Manual) Eosinophils % (Manual) Basophils % (Manual) Seg Neutrophils # Seg Neutrophils # Man Lymphocytes # (Manual) Monocytes # (Manual) Eosinophils # (Manual) Nucleated RBC % Basophils # (Manual) PT INR APTT Heparin Anti-Xa Level ABG pH POC ABG pO2 ABG pO2 ABG HCO3 ABG O2 Saturation ABG Base Excess POC ABG pCO2 ABG Hemoglobin ABG Oxyhemoglobin ABG Sodium ABG Chloride ABG Glucose Oxyhemoglobin Sodium Potassium Chloride Carbon Dioxide BUN Creatinine Glucose POC Glucose 137 H 122 H 116 H Lactic Acid Calcium Phosphorus Magnesium AST ALT Lactate Dehydrogenase Total Bilirubin Direct Bilirubin CK-MB (CK-2) C-Reactive Protein NT-Pro-B Natriuret Pep Total Protein Albumin Arterial Blood Glucose Urine WBC (Auto) Urine Creatinine Digoxin 03/12/20 03/13/20 03/13/20 23:17 05:47 11:35 WBC RBC Hgb Hct MCHC RDW MCV MCH Lymph % (Auto) [place] % (Auto) [place] # Eos # Lymph # (Auto) [place] # (Auto) Eos # (Auto) Seg Neutrophils % Seg Neuts % (Manual) Baso # (Auto) Lymphocytes % (Manual) Monocytes % (Manual) Eosinophils % (Manual) Basophils % (Manual) Seg Neutrophils # Seg Neutrophils # Man Lymphocytes # (Manual) Monocytes # (Manual) Eosinophils # (Manual) Nucleated RBC % Basophils # (Manual) PT INR APTT Heparin Anti-Xa Level ABG pH POC ABG pO2 ABG pO2 ABG HCO3 ABG O2 Saturation ABG Base Excess POC ABG pCO2 ABG Hemoglobin ABG Oxyhemoglobin ABG Sodium ABG Chloride ABG Glucose Oxyhemoglobin Sodium Potassium Chloride Carbon Dioxide BUN Creatinine Glucose POC Glucose 118 H 142 H 146 H Lactic Acid Calcium Phosphorus Magnesium AST ALT Lactate Dehydrogenase Total Bilirubin Direct Bilirubin CK-MB (CK-2) C-Reactive Protein NT-Pro-B Natriuret Pep Total Protein Albumin Arterial Blood Glucose Urine WBC (Auto) Urine Creatinine Digoxin 03/13/20 03/13/20 03/14/20 17:25 23:27 05:04 WBC RBC Hgb Hct MCHC RDW MCV MCH Lymph % (Auto) [place] % (Auto) [place] # Eos # Lymph # (Auto) [place] # (Auto) Eos # (Auto) Seg Neutrophils % Seg Neuts % (Manual) Baso # (Auto) Lymphocytes % (Manual) Monocytes % (Manual) Eosinophils % (Manual) Basophils % (Manual) Seg Neutrophils # Seg Neutrophils # Man Lymphocytes # (Manual) Monocytes # (Manual) Eosinophils # (Manual) Nucleated RBC % Basophils # (Manual) PT INR APTT Heparin Anti-Xa Level ABG pH POC ABG pO2 ABG pO2 ABG HCO3 ABG O2 Saturation ABG Base Excess POC ABG pCO2 ABG Hemoglobin ABG Oxyhemoglobin ABG Sodium ABG Chloride ABG Glucose Oxyhemoglobin Sodium Potassium Chloride Carbon Dioxide BUN Creatinine Glucose POC Glucose 138 H 160 H 159 H Lactic Acid Calcium Phosphorus Magnesium AST ALT Lactate Dehydrogenase Total Bilirubin Direct Bilirubin CK-MB (CK-2) C-Reactive Protein NT-Pro-B Natriuret Pep Total Protein Albumin Arterial Blood Glucose Urine WBC (Auto) Urine Creatinine Digoxin 03/14/20 03/14/20 03/15/20 11:19 16:18 00:18 WBC RBC Hgb Hct MCHC RDW MCV MCH Lymph % (Auto) [place] % (Auto) [place] # Eos # Lymph # (Auto) [place] # (Auto) Eos # (Auto) Seg Neutrophils % Seg Neuts % (Manual) Baso # (Auto) Lymphocytes % (Manual) Monocytes % (Manual) Eosinophils % (Manual) Basophils % (Manual) Seg Neutrophils # Seg Neutrophils # Man Lymphocytes # (Manual) Monocytes # (Manual) Eosinophils # (Manual) Nucleated RBC % Basophils # (Manual) PT INR APTT Heparin Anti-Xa Level ABG pH POC ABG pO2 ABG pO2 ABG HCO3 ABG O2 Saturation ABG Base Excess POC ABG pCO2 ABG Hemoglobin ABG Oxyhemoglobin ABG Sodium ABG Chloride ABG Glucose Oxyhemoglobin Sodium Potassium Chloride Carbon Dioxide BUN Creatinine Glucose POC Glucose 130 H 170 H 125 H Lactic Acid Calcium Phosphorus Magnesium AST ALT Lactate Dehydrogenase Total Bilirubin Direct Bilirubin CK-MB (CK-2) C-Reactive Protein NT-Pro-B Natriuret Pep Total Protein Albumin Arterial Blood Glucose Urine WBC (Auto) Urine Creatinine Digoxin 03/15/20 03/15/20 03/15/20 04:05 04:05 05:36 WBC RBC Hgb 10.0 L Hct 31.6 L MCHC RDW 22.4 H MCV 77 L MCH 24 L Lymph % (Auto) 36.2 H [place] % (Auto) 9.4 H [place] # Eos # Lymph # (Auto) [place] # (Auto) Eos # (Auto) Seg Neutrophils % Seg Neuts % (Manual) Baso # (Auto) Lymphocytes % (Manual) Monocytes % (Manual) Eosinophils % (Manual) Basophils % (Manual) Seg Neutrophils # Seg Neutrophils # Man Lymphocytes # (Manual) Monocytes # (Manual) Eosinophils # (Manual) Nucleated RBC % Basophils # (Manual) PT INR APTT Heparin Anti-Xa Level ABG pH POC ABG pO2 ABG pO2 ABG HCO3 ABG O2 Saturation ABG Base Excess POC ABG pCO2 ABG Hemoglobin ABG Oxyhemoglobin ABG Sodium ABG Chloride ABG Glucose Oxyhemoglobin Sodium Potassium Chloride Carbon Dioxide 32 H BUN Creatinine 0.5 L Glucose 141 H POC Glucose 130 H Lactic Acid Calcium Phosphorus Magnesium AST ALT Lactate Dehydrogenase Total Bilirubin Direct Bilirubin CK-MB (CK-2) C-Reactive Protein NT-Pro-B Natriuret Pep Total Protein Albumin Arterial Blood Glucose Urine WBC (Auto) Urine Creatinine Digoxin 03/15/20 03/15/20 03/15/20 11:41 17:38 23:16 WBC RBC Hgb Hct MCHC RDW MCV MCH Lymph % (Auto) [place] % (Auto) [place] # Eos # Lymph # (Auto) [place] # (Auto) Eos # (Auto) Seg Neutrophils % Seg Neuts % (Manual) Baso # (Auto) Lymphocytes % (Manual) Monocytes % (Manual) Eosinophils % (Manual) Basophils % (Manual) Seg Neutrophils # Seg Neutrophils # Man Lymphocytes # (Manual) Monocytes # (Manual) Eosinophils # (Manual) Nucleated RBC % Basophils # (Manual) PT INR APTT Heparin Anti-Xa Level ABG pH POC ABG pO2 ABG pO2 ABG HCO3 ABG O2 Saturation ABG Base Excess POC ABG pCO2 ABG Hemoglobin ABG Oxyhemoglobin ABG Sodium ABG Chloride ABG Glucose Oxyhemoglobin Sodium Potassium Chloride Carbon Dioxide BUN Creatinine Glucose POC Glucose 114 H 144 H 116 H Lactic Acid Calcium Phosphorus Magnesium AST ALT Lactate Dehydrogenase Total Bilirubin Direct Bilirubin CK-MB (CK-2) C-Reactive Protein NT-Pro-B Natriuret Pep Total Protein Albumin Arterial Blood Glucose Urine WBC (Auto) Urine Creatinine Digoxin 03/16/20 03/16/20 03/16/20 05:39 13:16 18:29 WBC RBC Hgb Hct MCHC RDW MCV MCH Lymph % (Auto) [place] % (Auto) [place] # Eos # Lymph # (Auto) [place] # (Auto) Eos # (Auto) Seg Neutrophils % Seg Neuts % (Manual) Baso # (Auto) Lymphocytes % (Manual) Monocytes % (Manual) Eosinophils % (Manual) Basophils % (Manual) Seg Neutrophils # Seg Neutrophils # Man Lymphocytes # (Manual) Monocytes # (Manual) Eosinophils # (Manual) Nucleated RBC % Basophils # (Manual) PT INR APTT Heparin Anti-Xa Level ABG pH POC ABG pO2 ABG pO2 ABG HCO3 ABG O2 Saturation ABG Base Excess POC ABG pCO2 ABG Hemoglobin ABG Oxyhemoglobin ABG Sodium ABG Chloride ABG Glucose Oxyhemoglobin Sodium Potassium Chloride Carbon Dioxide BUN Creatinine Glucose POC Glucose 125 H 153 H 135 H Lactic Acid Calcium Phosphorus Magnesium AST ALT Lactate Dehydrogenase Total Bilirubin Direct Bilirubin CK-MB (CK-2) C-Reactive Protein NT-Pro-B Natriuret Pep Total Protein Albumin Arterial Blood Glucose Urine WBC (Auto) Urine Creatinine Digoxin 03/16/20 03/17/20 03/17/20 23:32 05:50 11:38 WBC RBC Hgb Hct MCHC RDW MCV MCH Lymph % (Auto) [place] % (Auto) [place] # Eos # Lymph # (Auto) [place] # (Auto) Eos # (Auto) Seg Neutrophils % Seg Neuts % (Manual) Baso # (Auto) Lymphocytes % (Manual) Monocytes % (Manual) Eosinophils % (Manual) Basophils % (Manual) Seg Neutrophils # Seg Neutrophils # Man Lymphocytes # (Manual) Monocytes # (Manual) Eosinophils # (Manual) Nucleated RBC % Basophils # (Manual) PT INR APTT Heparin Anti-Xa Level ABG pH POC ABG pO2 ABG pO2 ABG HCO3 ABG O2 Saturation ABG Base Excess POC ABG pCO2 ABG Hemoglobin ABG Oxyhemoglobin ABG Sodium ABG Chloride ABG Glucose Oxyhemoglobin Sodium Potassium Chloride Carbon Dioxide BUN Creatinine Glucose POC Glucose 137 H 160 H 134 H Lactic Acid Calcium Phosphorus Magnesium AST ALT Lactate Dehydrogenase Total Bilirubin Direct Bilirubin CK-MB (CK-2) C-Reactive Protein NT-Pro-B Natriuret Pep Total Protein Albumin Arterial Blood Glucose Urine WBC (Auto) Urine Creatinine Digoxin 03/17/20 03/17/20 03/18/20 16:59 23:29 05:39 WBC RBC Hgb Hct MCHC RDW MCV MCH Lymph % (Auto) [place] % (Auto) [place] # Eos # Lymph # (Auto) [place] # (Auto) Eos # (Auto) Seg Neutrophils % Seg Neuts % (Manual) Baso # (Auto) Lymphocytes % (Manual) Monocytes % (Manual) Eosinophils % (Manual) Basophils % (Manual) Seg Neutrophils # Seg Neutrophils # Man Lymphocytes # (Manual) Monocytes # (Manual) Eosinophils # (Manual) Nucleated RBC % Basophils # (Manual) PT INR APTT Heparin Anti-Xa Level ABG pH POC ABG pO2 ABG pO2 ABG HCO3 ABG O2 Saturation ABG Base Excess POC ABG pCO2 ABG Hemoglobin ABG Oxyhemoglobin ABG Sodium ABG Chloride ABG Glucose Oxyhemoglobin Sodium Potassium Chloride Carbon Dioxide BUN Creatinine Glucose POC Glucose 120 H 141 H 181 H Lactic Acid Calcium Phosphorus Magnesium AST ALT Lactate Dehydrogenase Total Bilirubin Direct Bilirubin CK-MB (CK-2) C-Reactive Protein NT-Pro-B Natriuret Pep Total Protein Albumin Arterial Blood Glucose Urine WBC (Auto) Urine Creatinine Digoxin 03/18/20 03/18/20 03/18/20 11:18 15:34 17:42 WBC RBC Hgb Hct MCHC RDW MCV MCH Lymph % (Auto) [place] % (Auto) [place] # Eos # Lymph # (Auto) [place] # (Auto) Eos # (Auto) Seg Neutrophils % Seg Neuts % (Manual) Baso # (Auto) Lymphocytes % (Manual) Monocytes % (Manual) Eosinophils % (Manual) Basophils % (Manual) Seg Neutrophils # Seg Neutrophils # Man Lymphocytes # (Manual) Monocytes # (Manual) Eosinophils # (Manual) Nucleated RBC % Basophils # (Manual) PT INR APTT Heparin Anti-Xa Level ABG pH POC ABG pO2 ABG pO2 ABG HCO3 ABG O2 Saturation ABG Base Excess POC ABG pCO2 ABG Hemoglobin ABG Oxyhemoglobin ABG Sodium ABG Chloride ABG Glucose Oxyhemoglobin Sodium 132 L Potassium 5.4 H D Chloride 96.8 L Carbon Dioxide BUN 24 H Creatinine 0.6 L Glucose 164 H POC Glucose 142 H 118 H Lactic Acid Calcium Phosphorus Magnesium AST ALT Lactate Dehydrogenase Total Bilirubin Direct Bilirubin CK-MB (CK-2) C-Reactive Protein NT-Pro-B Natriuret Pep Total Protein 6.2 L Albumin 2.8 L Arterial Blood Glucose Urine WBC (Auto) Urine Creatinine Digoxin 03/18/20 03/19/20 03/19/20 23:57 05:40 07:50 WBC RBC Hgb Hct MCHC RDW MCV MCH Lymph % (Auto) [place] % (Auto) [place] # Eos # Lymph # (Auto) [place] # (Auto) Eos # (Auto) Seg Neutrophils % Seg Neuts % (Manual) Baso # (Auto) Lymphocytes % (Manual) Monocytes % (Manual) Eosinophils % (Manual) Basophils % (Manual) Seg Neutrophils # Seg Neutrophils # Man Lymphocytes # (Manual) Monocytes # (Manual) Eosinophils # (Manual) Nucleated RBC % Basophils # (Manual) PT INR APTT Heparin Anti-Xa Level ABG pH POC ABG pO2 ABG pO2 ABG HCO3 ABG O2 Saturation ABG Base Excess POC ABG pCO2 ABG Hemoglobin ABG Oxyhemoglobin ABG Sodium ABG Chloride ABG Glucose Oxyhemoglobin Sodium 136 L Potassium Chloride 97.3 L Carbon Dioxide 31 H BUN 22 H Creatinine 0.5 L Glucose 160 H POC Glucose 127 H 136 H Lactic Acid Calcium Phosphorus Magnesium AST ALT Lactate Dehydrogenase Total Bilirubin Direct Bilirubin CK-MB (CK-2) C-Reactive Protein NT-Pro-B Natriuret Pep Total Protein Albumin Arterial Blood Glucose Urine WBC (Auto) Urine Creatinine Digoxin 03/19/20 03/19/20 03/20/20 12:21 17:27 00:31 WBC RBC Hgb Hct MCHC RDW MCV MCH Lymph % (Auto) [place] % (Auto) [place] # Eos # Lymph # (Auto) [place] # (Auto) Eos # (Auto) Seg Neutrophils % Seg Neuts % (Manual) Baso # (Auto) Lymphocytes % (Manual) Monocytes % (Manual) Eosinophils % (Manual) Basophils % (Manual) Seg Neutrophils # Seg Neutrophils # Man Lymphocytes # (Manual) Monocytes # (Manual) Eosinophils # (Manual) Nucleated RBC % Basophils # (Manual) PT INR APTT Heparin Anti-Xa Level ABG pH POC ABG pO2 ABG pO2 ABG HCO3 ABG O2 Saturation ABG Base Excess POC ABG pCO2 ABG Hemoglobin ABG Oxyhemoglobin ABG Sodium ABG Chloride ABG Glucose Oxyhemoglobin Sodium Potassium Chloride Carbon Dioxide BUN Creatinine Glucose POC Glucose 147 H 152 H 132 H Lactic Acid Calcium Phosphorus Magnesium AST ALT Lactate Dehydrogenase Total Bilirubin Direct Bilirubin CK-MB (CK-2) C-Reactive Protein NT-Pro-B Natriuret Pep Total Protein Albumin Arterial Blood Glucose Urine WBC (Auto) Urine Creatinine Digoxin 03/20/20 03/20/20 03/20/20 05:59 11:45 17:24 WBC RBC Hgb Hct MCHC RDW MCV MCH Lymph % (Auto) [place] % (Auto) [place] # Eos # Lymph # (Auto) [place] # (Auto) Eos # (Auto) Seg Neutrophils % Seg Neuts % (Manual) Baso # (Auto) Lymphocytes % (Manual) Monocytes % (Manual) Eosinophils % (Manual) Basophils % (Manual) Seg Neutrophils # Seg Neutrophils # Man Lymphocytes # (Manual) Monocytes # (Manual) Eosinophils # (Manual) Nucleated RBC % Basophils # (Manual) PT INR APTT Heparin Anti-Xa Level ABG pH POC ABG pO2 ABG pO2 ABG HCO3 ABG O2 Saturation ABG Base Excess POC ABG pCO2 ABG Hemoglobin ABG Oxyhemoglobin ABG Sodium ABG Chloride ABG Glucose Oxyhemoglobin Sodium Potassium Chloride Carbon Dioxide BUN Creatinine Glucose POC Glucose 146 H 142 H 107 H Lactic Acid Calcium Phosphorus Magnesium AST ALT Lactate Dehydrogenase Total Bilirubin Direct Bilirubin CK-MB (CK-2) C-Reactive Protein NT-Pro-B Natriuret Pep Total Protein Albumin Arterial Blood Glucose Urine WBC (Auto) Urine Creatinine Digoxin 03/20/20 03/21/20 03/21/20 23:38 05:38 11:22 WBC RBC Hgb Hct MCHC RDW MCV MCH Lymph % (Auto) [place] % (Auto) [place] # Eos # Lymph # (Auto) [place] # (Auto) Eos # (Auto) Seg Neutrophils % Seg Neuts % (Manual) Baso # (Auto) Lymphocytes % (Manual) Monocytes % (Manual) Eosinophils % (Manual) Basophils % (Manual) Seg Neutrophils # Seg Neutrophils # Man Lymphocytes # (Manual) Monocytes # (Manual) Eosinophils # (Manual) Nucleated RBC % Basophils # (Manual) PT INR APTT Heparin Anti-Xa Level ABG pH POC ABG pO2 ABG pO2 ABG HCO3 ABG O2 Saturation ABG Base Excess POC ABG pCO2 ABG Hemoglobin ABG Oxyhemoglobin ABG Sodium ABG Chloride ABG Glucose Oxyhemoglobin Sodium Potassium Chloride Carbon Dioxide BUN Creatinine Glucose POC Glucose 115 H 133 H 137 H Lactic Acid Calcium Phosphorus Magnesium AST ALT Lactate Dehydrogenase Total Bilirubin Direct Bilirubin CK-MB (CK-2) C-Reactive Protein NT-Pro-B Natriuret Pep Total Protein Albumin Arterial Blood Glucose Urine WBC (Auto) Urine Creatinine Digoxin 03/21/20 03/22/20 03/22/20 18:26 00:10 05:29 WBC RBC Hgb Hct MCHC RDW MCV MCH Lymph % (Auto) [place] % (Auto) [place] # Eos # Lymph # (Auto) [place] # (Auto) Eos # (Auto) Seg Neutrophils % Seg Neuts % (Manual) Baso # (Auto) Lymphocytes % (Manual) Monocytes % (Manual) Eosinophils % (Manual) Basophils % (Manual) Seg Neutrophils # Seg Neutrophils # Man Lymphocytes # (Manual) Monocytes # (Manual) Eosinophils # (Manual) Nucleated RBC % Basophils # (Manual) PT INR APTT Heparin Anti-Xa Level ABG pH POC ABG pO2 ABG pO2 ABG HCO3 ABG O2 Saturation ABG Base Excess POC ABG pCO2 ABG Hemoglobin ABG Oxyhemoglobin ABG Sodium ABG Chloride ABG Glucose Oxyhemoglobin Sodium Potassium Chloride Carbon Dioxide BUN Creatinine Glucose POC Glucose 200 H 123 H 156 H Lactic Acid Calcium Phosphorus Magnesium AST ALT Lactate Dehydrogenase Total Bilirubin Direct Bilirubin CK-MB (CK-2) C-Reactive Protein NT-Pro-B Natriuret Pep Total Protein Albumin Arterial Blood Glucose Urine WBC (Auto) Urine Creatinine Digoxin 03/22/20 03/22/20 03/22/20 06:39 06:39 06:39 WBC RBC Hgb 9.7 L Hct 30.7 L MCHC RDW 22.2 H MCV 77 L MCH 25 L Lymph % (Auto) [place] % (Auto) 9.0 H [place] # Eos # Lymph # (Auto) [place] # (Auto) Eos # (Auto) Seg Neutrophils % Seg Neuts % (Manual) Baso # (Auto) Lymphocytes % (Manual) Monocytes % (Manual) Eosinophils % (Manual) Basophils % (Manual) Seg Neutrophils # Seg Neutrophils # Man Lymphocytes # (Manual) Monocytes # (Manual) Eosinophils # (Manual) Nucleated RBC % Basophils # (Manual) PT INR APTT Heparin Anti-Xa Level ABG pH POC ABG pO2 ABG pO2 ABG HCO3 ABG O2 Saturation ABG Base Excess POC ABG pCO2 ABG Hemoglobin ABG Oxyhemoglobin ABG Sodium ABG Chloride ABG Glucose Oxyhemoglobin Sodium Potassium Chloride Carbon Dioxide 33 H BUN Creatinine 0.5 L Glucose 147 H POC Glucose Lactic Acid Calcium Phosphorus Magnesium AST ALT Lactate Dehydrogenase Total Bilirubin Direct Bilirubin CK-MB (CK-2) C-Reactive Protein NT-Pro-B Natriuret Pep Total Protein Albumin Arterial Blood Glucose Urine WBC (Auto) Urine Creatinine Digoxin 0.8 L 03/22/20 03/22/20 03/22/20 11:22 17:49 23:38 WBC RBC Hgb Hct MCHC RDW MCV MCH Lymph % (Auto) [place] % (Auto) [place] # Eos # Lymph # (Auto) [place] # (Auto) Eos # (Auto) Seg Neutrophils % Seg Neuts % (Manual) Baso # (Auto) Lymphocytes % (Manual) Monocytes % (Manual) Eosinophils % (Manual) Basophils % (Manual) Seg Neutrophils # Seg Neutrophils # Man Lymphocytes # (Manual) Monocytes # (Manual) Eosinophils # (Manual) Nucleated RBC % Basophils # (Manual) PT INR APTT Heparin Anti-Xa Level ABG pH POC ABG pO2 ABG pO2 ABG HCO3 ABG O2 Saturation ABG Base Excess POC ABG pCO2 ABG Hemoglobin ABG Oxyhemoglobin ABG Sodium ABG Chloride ABG Glucose Oxyhemoglobin Sodium Potassium Chloride Carbon Dioxide BUN Creatinine Glucose POC Glucose 159 H 119 H 129 H Lactic Acid Calcium Phosphorus Magnesium AST ALT Lactate Dehydrogenase Total Bilirubin Direct Bilirubin CK-MB (CK-2) C-Reactive Protein NT-Pro-B Natriuret Pep Total Protein Albumin Arterial Blood Glucose Urine WBC (Auto) Urine Creatinine Digoxin 03/23/20 03/23/20 03/23/20 05:02 11:38 17:01 WBC RBC Hgb Hct MCHC RDW MCV MCH Lymph % (Auto) [place] % (Auto) [place] # Eos # Lymph # (Auto) [place] # (Auto) Eos # (Auto) Seg Neutrophils % Seg Neuts % (Manual) Baso # (Auto) Lymphocytes % (Manual) Monocytes % (Manual) Eosinophils % (Manual) Basophils % (Manual) Seg Neutrophils # Seg Neutrophils # Man Lymphocytes # (Manual) Monocytes # (Manual) Eosinophils # (Manual) Nucleated RBC % Basophils # (Manual) PT INR APTT Heparin Anti-Xa Level ABG pH POC ABG pO2 ABG pO2 ABG HCO3 ABG O2 Saturation ABG Base Excess POC ABG pCO2 ABG Hemoglobin ABG Oxyhemoglobin ABG Sodium ABG Chloride ABG Glucose Oxyhemoglobin Sodium Potassium Chloride Carbon Dioxide BUN Creatinine Glucose POC Glucose 136 H 129 H 122 H Lactic Acid Calcium Phosphorus Magnesium AST ALT Lactate Dehydrogenase Total Bilirubin Direct Bilirubin CK-MB (CK-2) C-Reactive Protein NT-Pro-B Natriuret Pep Total Protein Albumin Arterial Blood Glucose Urine WBC (Auto) Urine Creatinine Digoxin 03/23/20 03/24/20 03/24/20 23:35 06:55 11:43 WBC RBC Hgb Hct MCHC RDW MCV MCH Lymph % (Auto) [place] % (Auto) [place] # Eos # Lymph # (Auto) [place] # (Auto) Eos # (Auto) Seg Neutrophils % Seg Neuts % (Manual) Baso # (Auto) Lymphocytes % (Manual) Monocytes % (Manual) Eosinophils % (Manual) Basophils % (Manual) Seg Neutrophils # Seg Neutrophils # Man Lymphocytes # (Manual) Monocytes # (Manual) Eosinophils # (Manual) Nucleated RBC % Basophils # (Manual) PT INR APTT Heparin Anti-Xa Level ABG pH POC ABG pO2 ABG pO2 ABG HCO3 ABG O2 Saturation ABG Base Excess POC ABG pCO2 ABG Hemoglobin ABG Oxyhemoglobin ABG Sodium ABG Chloride ABG Glucose Oxyhemoglobin Sodium Potassium Chloride Carbon Dioxide BUN Creatinine Glucose POC Glucose 115 H 122 H 135 H Lactic Acid Calcium Phosphorus Magnesium AST ALT Lactate Dehydrogenase Total Bilirubin Direct Bilirubin CK-MB (CK-2) C-Reactive Protein NT-Pro-B Natriuret Pep Total Protein Albumin Arterial Blood Glucose Urine WBC (Auto) Urine Creatinine Digoxin Chest x-ray: other (none today) Allied health notes reviewed: nursing
[2020-03-24] MEDS: DIGOXIN 0.125 MG TAB PO SCH (17:00)
[2020-03-24] MEDS: TAMSULOSIN 0.4 MG CAP PO SCH (21:46)
[2020-03-24] MEDS: POLYETHYLENE GLYCOL 3350 17 GM POWDER PO SCH (21:47)
[2020-03-25] MEDS: INSULIN REGULAR, HUMAN 100 UNIT/ML 3ML VIAL SUB-Q SCH ×4 (00:17→17:13)
[2020-03-25] MEDS: ACETAMINOPHEN 325 MG/10.15 ML ORAL LIQD UNIT DOSE FEEDTUBE PRN (00:18)
[2020-03-25] MEDS: ONDANSETRON 4 MG/2 ML INJ IV PRN (00:19)
--- NOTE | 2020-03-25 08:07 | Progress Note ---
Assessment and Plan Assessment and plan: --Intractable nausea; check for residual feeding IV Zofran as needed, supportive care --Acute on chronic hypoxemic respiratory failure; Patient has tracheostomy on vent On CPAP trial Continue nebulizers, , trach care Wean off ventilator as tolerated Pulmonary critical following --Acute exacerbation of COPD; Patient is currently on ventilatory support Continue nebulizers --Left lower lobe PE; Continue Eliquis, ventilatory support --Acute right lower extremity DVT; Patient is on Eliquis --Bilateral multifocal pneumonia/community-acquired Completed antibiotics, improved --Severe sepsis/bilateral pneumonia: Completed antibiotics COVID-19 test; 11/24/2019; negative 11/26/2019; negative 12/29/2019: Negative --Paroxysmal atrial fibrillation; Now rate controlled, Stable on amiodarone and Eliquis --Acute on chronic combined systolic and diastolic congestive heart failure Ischemic cardiomyopathy left ventricular ejection fraction 40 to 45% --H/o CAD [[facility] 12/2018 in-stent restenosis] Patient is stable on current cardiac medications --Hypertensive emergency; present on admission Reasonable blood pressures, continue current antihypertensives As needed medications --History of alcohol abuse/alcohol withdrawal; Was on CIWA protocol, now stable --Oropharyngeal dysphagia; status post PEG placement Continue PEG feeds per protocol --History of partial small bowel obstruction; resolved Surgery evaluated. --Obesity; BMI 34.7 Patient needs weight reduction when medically stable --Severe protein calorie malnutrition/hypoalbuminemia Nutrition supplements, dietitian following, PEG feeds --DVT prophylaxis;Eliquis --Full CODE STATUS 03/19/2020. Continue current vent per pulmonary recommendations. Pressure support ventilation trials as tolerated. Continue trach care, secretion control and airway management. Mobility protocols for pressure ulcer prophylaxis. 03/20/2020. Rate better controlled on digoxin and metoprolol per cardiology. Patient currently off amiodarone due to elevated liver enzymes. Continue anticoagulation with Eliquis. IV metoprolol as needed. No statins for now secondary to elevated liver enzymes. Patient remains on AC mode ventilation rate 12, tidal volume 450, FiO2 30% and PEEP of 6. Cont. PSV as figueroa. Continue trach care, secretion control and airway management. Mobility protocols for pressure ulcer prophylaxis. Patient is uninsured and his only d/c option is to return home with family. 03/21/2020. Patient still with elevated heart rate but better on digoxin and metoprolol per cardiology. Patient currently off amiodarone due to elevated l iver enzymes. Continue anticoagulation with Eliquis. IV metoprolol as needed. No statins for now secondary to elevated liver enzymes. Patient remains on AC mode mechanical ventilation with rate 12, tidal volume 450, FiO2 30% and PEEP of 6. Continue PSV trials as tolerated. Continue trach care, secretion control and airway management. Mobility protocols for pressure ulcer prophylaxis. Patient is uninsured and his only d/c option is to return home with family. 03/22/2020; patient remains on ventilatory support, continue to wean as tolerated, trach care Awaiting LTAC placement, however patient has multiple social issues, mobility protocols blood pressure ulcers DVT prophylaxis, will continue current management 03/23/2020; patient remains on ventilatory support, tracheostomy, on CPAP trial 03/25/2020; patient with tracheostomy remains on ventilatory support, complains of mild nausea The high probability of a clinically significant, sudden or life threatening deterioration of the [Respiratory, cardiovascular & neurological] system(s) required my full and direct attention, intervention and personal management. The aggregate critical care time was [35] minutes without overlap. Time includes spent on [x] Data Review and interpretation [x] Patient assessment and monitoring of vital signs [x] Documentation [x] Medication orders and management Plan of care reviewed with the patient and his nurse History Interval history: Seen and examined the patient at the bedside this morning in ICU Patient's chart medications reviewed No new overnight events reported by the nurse Tracheostomy on ventilatory support Complains of mild nausea, without vomiting Patient is alert awake responding appropriately Vital signs noted Hospitalist Physical - Constitutional Vitals: Temp Pulse Resp BP Pulse Ox 98.8 F 114 H 24 106/81 99 03/25/20 04:00 03/25/20 06:01 03/25/20 06:01 03/25/20 06:01 03/25/20 06:01 General appearance: Present: no acute distress, well-nourished, other (Tracheostomy on vent) - EENT Eyes: Present: PERRL, EOM intact ENT: other (Tracheostomy) - Neck Neck: Present: supple, normal ROM - Respiratory Respiratory effort: normal Respiratory: bilateral: diminished, rhonchi, negative: rales, wheezing - Cardiovascular Rhythm: regular Heart Sounds: Present: S1 & S2 - Extremities Extremities: no ischemia, No edema - Abdominal General gastrointestinal: soft, non-tender, non-distended, normal bowel sounds - Integumentary Integumentary: Present: clear, warm - Psychiatric Psychiatric: appropriate mood/affect, cooperative - Neurologic Neurologic: CNII-XII intact, moves all extremities HEART Score - HEART Score Troponin: Troponin T < 0.010 ng/mL (0.00-0.029) 01/19/20 01:35 Results - Labs CBC & Chem 7: 03/22/20 06:39 03/22/20 06:39 Labs: Laboratory Last Values WBC 6.0 K/mm3 (4.5-11.0) 03/22/20 06:39 RBC 3.97 M/mm3 (3.65-5.03) 03/22/20 06:39 Hgb 9.7 gm/dl (11.8-15.2) L 03/22/20 06:39 Hct 30.7 % (35.5-45.6) L 03/22/20 06:39 MCV 77 fl (84-94) L 03/22/20 06:39 MCH 25 pg (28-32) L 03/22/20 06:39 MCHC 32 % (32-34) 03/22/20 06:39 RDW 22.2 % (13.2-15.2) H 03/22/20 06:39 Plt Count 166 K/mm3 (140-440) 03/22/20 06:39 Lymph % (Auto) 32.8 % (13.4-35.0) 03/22/20 06:39 Leon % (Auto) 9.0 % (0.0-7.3) H 03/22/20 06:39 Eos % (Auto) 2.4 % (0.0-4.3) 03/22/20 06:39 Baso % (Auto) 0.3 % (0.0-1.8) 03/22/20 06:39 Lymph # (Auto) 2.0 K/mm3 (1.2-5.4) 03/22/20 06:39 Leon # (Auto) 0.5 K/mm3 (0.0-0.8) 03/22/20 06:39 Eos # (Auto) 0.1 K/mm3 (0.0-0.4) 03/22/20 06:39 Baso # (Auto) 0.0 K/mm3 (0.0-0.1) 03/22/20 06:39 Add Manual Diff Complete 02/15/20 06:59 Total Counted 100 02/15/20 06:59 Seg Neuts % (Manual) 58.0 % (40.0-70.0) 02/15/20 06:59 Band Neutrophils % 0 % 02/15/20 06:59 Seg Neutrophils % 55.5 % (40.0-70.0) 03/22/20 06:39 Lymphocytes % (Manual) 34.0 % (13.4-35.0) 02/15/20 06:59 Reactive Lymphs % (Man) 1.0 % 02/15/20 06:59 Monocytes % (Manual) 4.0 % (0.0-7.3) 02/15/20 06:59 Eosinophils % (Manual) 0 % (0.0-4.3) 02/15/20 06:59 Basophils % (Manual) 2.0 % (0.0-1.8) H 02/15/20 06:59 Metamyelocytes % 1.0 % 02/15/20 06:59 Myelocytes % 0 % 02/15/20 06:59 Promyelocytes % 0 % 02/15/20 06:59 Blast Cells % 0 % 02/15/20 06:59 Nucleated RBC % 1.0 % (0.0-0.9) H 02/15/20 06:59 Seg Neutrophils # Man 5.9 K/mm3 (1.8-7.7) 02/15/20 06:59 Seg Neutrophils # 3.4 K/mm3 (1.8-7.7) 03/22/20 06:39 Band Neutrophils # 0.0 K/mm3 02/15/20 06:59 Lymphocytes # (Manual) 3.5 K/mm3 (1.2-5.4) 02/15/20 06:59 Abs React Lymphs (Man) 0.1 K/mm3 02/15/20 06:59 Monocytes # (Manual) 0.4 K/mm3 (0.0-0.8) 02/15/20 06:59 Eosinophils # (Manual) 0.0 K/mm3 (0.0-0.4) 02/15/20 06:59 Basophils # (Manual) 0.2 K/mm3 (0.0-0.1) H 02/15/20 06:59 Metamyelocytes # 0.1 K/mm3 02/15/20 06:59 Myelocytes # 0.0 K/mm3 02/15/20 06:59 Promyelocytes # 0.0 K/mm3 02/15/20 06:59 Blast Cells # 0.0 K/mm3 02/15/20 06:59 WBC Morphology Not Reportable 02/15/20 06:59 Hypersegmented Neuts Not Reportable 02/15/20 06:59 Hyposegmented Neuts Not Reportable 02/15/20 06:59 Hypogranular Neuts Not Reportable 02/15/20 06:59 Smudge Cells Not Reportable 02/15/20 06:59 Toxic Granulation Not Reportable 02/15/20 06:59 Toxic Vacuolation Not Reportable 02/15/20 06:59 Dohle Bodies Not Reportable 02/15/20 06:59 Pelger-Huet Anomaly Not Reportable 02/15/20 06:59 Hector Rods Not Reportable 02/15/20 06:59 Platelet Estimate Consistent w auto 02/15/20 06:59 Clumped Platelets Not Reportable 02/15/20 06:59 Plt Clumps, EDTA Not Reportable 02/15/20 06:59 Large Platelets Not Reportable 02/15/20 06:59 Giant Platelets Not Reportable 02/15/20 06:59 Platelet Satelliting Not Reportable 02/15/20 06:59 Plt Morphology Comment Giant platelets 02/15/20 06:59 RBC Morphology Not Reportable 02/15/20 06:59 Dimorphic RBCs Not Reportable 02/15/20 06:59 Polychromasia Not Reportable 02/15/20 06:59 Hypochromasia 1+ 02/15/20 06:59 Poikilocytosis Few 02/15/20 06:59 Anisocytosis 1+ 02/15/20 06:59 Microcytosis Not Reportable 02/15/20 06:59 Macrocytosis Not Reportable 02/15/20 06:59 Spherocytes Not Reportable 02/15/20 06:59 Pappenheimer Bodies Not Reportable 02/15/20 06:59 Sickle Cells Not Reportable 02/15/20 06:59 Target Cells 1+ 02/15/20 06:59 Tear Drop Cells Few 02/15/20 06:59 Ovalocytes Not Reportable 02/15/20 06:59 Helmet Cells Not Reportable 02/15/20 06:59 Gottlieb-Camargo Bodies Not Reportable 02/15/20 06:59 Del Valle Rings Not Reportable 02/15/20 06:59 [place] Cells Not Reportable 02/15/20 06:59 Bite Cells Not Reportable 02/15/20 06:59 Crenated Cell Not Reportable 02/15/20 06:59 Elliptocytes Few 02/15/20 06:59 Acanthocytes (Spur) Not Reportable 02/15/20 06:59 Rouleaux Not Reportable 02/15/20 06:59 Hemoglobin C Crystals Not Reportable 02/15/20 06:59 Schistocytes Not Reportable 02/15/20 06:59 Malaria parasites Not Reportable 02/15/20 06:59 Clifford Bodies Not Reportable 02/15/20 06:59 Hem Pathologist Commnt No 02/15/20 06:59 PT 27.0 Sec. (12.2-14.9) H 02/07/20 15:03 INR 2.46 (0.87-1.13) H 02/07/20 15:03 APTT 31.5 Sec. (24.2-36.6) 01/22/20 09:58 Heparin Anti-Xa Level 1.34 U.I./ml (0.3-0.7) H 01/22/20 04:45 ABG pH 7.454 (7.320-7.450) H 03/12/20 04:45 POC ABG pCO2 45.6 mmHg (32.0-48.0) 03/12/20 04:45 ABG pCO2 47.8 mm Hg 02/20/20 06:45 POC ABG pO2 69.2 mmHg (83-108) L 03/12/20 04:45 ABG pO2 88.7 mm Hg (80.0-90.0) 02/20/20 06:45 POC ABG HCO3 31.3 03/12/20 04:45 ABG HCO3 33.3 mmol/L (20.0-26.0) H 02/20/20 06:45 ABG O2 Saturation 97.2 % (95.0-99.0) 02/20/20 06:45 ABG O2 Content 13.3 (0.0-44) 02/20/20 06:45 POC ABG Base Excess 6.5 03/12/20 04:45 ABG Base Excess 8.4 mmol/L (-2.0-3.0) H 02/20/20 06:45 ABG Hemoglobin 11.2 (12.0-17.5) L 03/12/20 04:45 ABG Oxyhemoglobin 84 (94-98) L 12/22/19 03:22 ABG Carboxyhemoglobin 2.9 % (0.0-5.0) 02/20/20 06:45 ABG Methemoglobin 0.4 % (0.0-1.5) 02/20/20 06:45 ABG Sodium 134.7 mmol/L (136.0-145.0) L 03/12/20 04:45 ABG Potassium 3.9 mmol/L (3.40-4.50) 03/12/20 04:45 ABG Chloride 98.0 mmol/L (98-107) 03/12/20 04:45 ABG Glucose 151 mg/dL (65-95) H 03/12/20 04:45 Oxyhemoglobin 94.1 % (95.0-99.0) L 02/20/20 06:45 Carboxyhemoglobin 0.7 (0.5-1.5) 12/22/19 03:22 FiO2 30 03/12/20 04:45 Sodium 139 mmol/L (137-145) 03/22/20 06:39 Potassium 3.8 mmol/L (3.6-5.0) 03/22/20 06:39 Chloride 100.9 mmol/L (98-107) 03/22/20 06:39 Carbon Dioxide 33 mmol/L (22-30) H 03/22/20 06:39 Anion Gap 9 mmol/L 03/22/20 06:39 BUN 19 mg/dL (9-20) 03/22/20 06:39 Creatinine 0.5 mg/dL (0.8-1.3) L 03/22/20 06:39 Estimated GFR > 60 ml/min 03/22/20 06:39 BUN/Creatinine Ratio 38 % 03/22/20 06:39 Glucose 147 mg/dL (75-100) H 03/22/20 06:39 POC Glucose 176 mg/dL (70-105) H 03/25/20 05:45 Lactic Acid 1.60 mmol/L (0.7-2.0) 02/03/20 12:49 Ferritin 84.4 ng/mL (30.0-300.0) 11/24/19 04:53 Calcium 9.0 mg/dL (8.4-10.2) 03/22/20 06:39 Phosphorus 4.10 mg/dL (2.5-4.5) 01/31/20 19:24 Magnesium 2.40 mg/dL (1.7-2.3) H 02/10/20 07:40 Total Bilirubin 0.90 mg/dL (0.1-1.2) 03/18/20 15:34 Direct Bilirubin 0.9 mg/dL (0-0.2) H 02/08/20 19:00 Indirect Bilirubin 0.4 mg/dL 02/08/20 19:00 Total Creatine Kinase 141 units/L (55-170) 11/24/19 02:53 CK-MB (CK-2) 4.3 ng/mL (0.0-4.0) H 11/24/19 02:53 AST 23 units/L (5-40) 03/18/20 15:34 CK-MB (CK-2) Rel Index 3.0 (0-4) 11/24/19 02:53 ALT 22 units/L (7-56) 03/18/20 15:34 Alkaline Phosphatase 96 units/L (35-129) 03/18/20 15:34 C-Reactive Protein 8.50 mg/dL (0.00-1.30) H 12/01/19 12:16 Ammonia 35.0 umol/L (25-60) 02/03/20 12:49 Lactate Dehydrogenase 228 units/L (91-180) H 12/19/19 04:45 Troponin T < 0.010 ng/mL (0.00-0.029) 01/19/20 01:35 NT-Pro-B Natriuret Pep 3866 pg/mL (0-900) H 01/01/20 10:40 Total Protein 6.2 g/dL (6.3-8.2) L 03/18/20 15:34 Albumin 2.8 g/dL (3.9-5) L 03/18/20 15:34 Albumin/Globulin Ratio 0.8 % 03/18/20 15:34 Procalcitonin 0.44 ng/mL (<0.15) 02/03/20 12:49 Arterial Blood Glucose 151 mg/dL (65-95) H 03/12/20 04:45 Arterial Blood Ionized Calcium 4.8 mg/dL (4.6-5.3) 03/12/20 04:45 Urine Color Cecy (Yellow) 02/26/20 07:50 Urine Turbidity Clear (Clear) 02/26/20 07:50 Urine pH 5.0 (5.0-7.0) 02/26/20 07:50 Ur Specific Slater 1.025 (1.003-1.030) 02/26/20 07:50 Urine Protein 30 mg/dl mg/dL (Negative) 02/26/20 07:50 Urine Glucose (UA) Neg mg/dL (Negative) 02/26/20 07:50 Urine Ketones Neg mg/dL (Negative) 02/26/20 07:50 Urine Blood Sm (Negative) 02/26/20 07:50 Urine Nitrite Neg (Negative) 02/26/20 07:50 Urine Bilirubin Neg (Negative) 02/26/20 07:50 Urine Urobilinogen 4.0 mg/dL (<2.0) 02/26/20 07:50 Ur Leukocyte Esterase Lg (Negative) 02/26/20 07:50 Urine WBC (Auto) > 182.0 /HPF (0.0-6.0) H 02/26/20 07:50 Urine RBC (Auto) 84.0 /HPF (0.0-6.0) 02/26/20 07:50 U Epithel Cells (Auto) 2.0 /HPF (0-13.0) 12/31/19 18:04 Urine Bacteria (Auto) 4+ /HPF (Negative) 02/26/20 07:50 Urine WBC Clumps 2+ /HPF 02/26/20 07:50 Urine Mucus 1+ /HPF 02/26/20 07:50 Urine Creatinine 57.4 mg/dL (0.1-20.0) H 01/31/20 Unknown Urine Sodium 59 mmol/L 11/08/20 Unknown Vancomycin Trough 14.2 ug/mL (5.0-20.0) 12/13/19 15:01 Digoxin 0.8 ng/mL (0.9-2.0) L 03/22/20 06:39 Coronavirus (PCR) Negative (Negative) 12/29/19 10:07 Hepatitis A IgM Ab Non-reactive (NonReactive) 02/05/20 06:37 Hep Bs Antigen Non-reactive (Negative) 02/05/20 06:37 Hep B Core IgM Ab Non-reactive (NonReactive) 02/05/20 06:37 Hepatitis C Antibody Non-reactive (NonReactive) 02/05/20 06:37 Blood Type O POSITIVE 01/21/20 13:00 Antibody Screen Negative 01/21/20 13:00 - Diagnostic Impressions Diagnostic Impressions: Echocardiogram 11/29/19 07:37 Transthoracic Echocardiogram Indication: CHF BP: 116/72 HR: 33 Conclusions *The study is technically limited due to poor acoustic windows. *Global left ventricular systolic function is normal. *The estimated ejection fraction is 50-55%. *Mild concentric left ventricular hypertrophy is observed. *There is trace of mitral regurgitation. *There is mild tricuspid regurgitation. Findings Procedure Info: The study quality is poor. The study is technically limited due to poor acoustic windows. The study is technically limited due to patient body habitus. Left Ventricle: The left ventricular chamber size is normal. Mild concentric left ventricular hypertrophy is observed. Global left ventricular systolic function is normal. The estimated ejection fraction is 50-55%. Left Atrium: The left atrial chamber size is normal. Right Ventricle: The right ventricular cavity size is normal. Right Atrium: The right atrial cavity size is normal. Aortic Valve: The aortic valve leaflets are moderately thickened. There is trace of aortic regurgitation. There is no evidence of aortic stenosis. Mitral Valve: The mitral valve leaflets are mildly thickened. There is trace of mitral regurgitation. There is no evidence of mitral stenosis. Tricuspid Valve: There is mild tricuspid regurgitation. No pulmonary hypertension is noted. Pulmonic Valve: There is trace pulmonic regurgitation. Pericardium: There is no pericardial effusion. Aorta: There is no dilatation of the aortic root. Venous: The inferior vena cava appears normal in size. Contrast: Definity was used to optimize study. Intravenous contrast was used to enhance endocardial border definition. Measurements Chambers 2D Name Value Normal Range Ao root diameter (2D) 3.4 cm (2 - 3.7) Aortic Valve Name Value Normal Range AV Vmax 0.98 m/sec - AV VTI 16.76 cm - AV peak gradient 3.83 mmHg - AV mean gradient 2.57 mmHg - LVOT diameter 3.11 cm - LVOT Vmax 0.68 m/sec - LVOT VTI 11.52 cm - LVOT peak gradient 1.84 mmHg - LVOT mean gradient 1.27 mmHg - SV LVOT 87.31 ml - MALOU (continuity Vmax) 5.24 cm2 - MALOU (continuity VTI) 5.21 cm2 - Tricuspid Valve Name Value Normal Range IVC diameter 2.24 cm (1.2 - 2.3) Hoffman/IV: Voiding Method Indwelling Catheter IV Catheter Type [Left INT / Saline Lock Antecubital] IV Catheter Type [Right INT / Saline Lock Forearm] IV Catheter Type [Right Hand] Peripheral IV IV Catheter Type [Right Upper INT / Saline Lock arm] IV Catheter Type [Left Upper Mid-line arm] IV Catheter Type [Left Forearm Peripheral IV ] IV Catheter Type [Left Hand] Peripheral IV IV Catheter Type [Left Wrist] INT / Saline Lock IV Catheter Type [Right Peripheral IV Antecubital] Active Medications - Current Medications Current Medications: Generic Name Dose Route Start Last Admin Trade Name Freq PRN Reason Stop Dose Admin Acetaminophen 650 mg 03/12/20 04:29 03/25/20 00:18 Acetaminophen 325 Mg/10.15 Ml Oral Liqd Unit Dose FEEDTUBE 650 mg Q6H PRN Administration Pain, Mild (1-3) Lipase/Protease/Amylase 1 each 01/09/20 12:01 03/18/20 11:09 Lipase 10,500/Protease 25,000/Amylase 43,750 (Units) Dr Lauren FEEDTUBE 1 each PRN PRN Administration For Clogged Feeding Tube Apixaban 5 mg 01/22/20 22:00 03/24/20 21:46 Apixaban 5 Mg Tab PO 5 mg Q12HR CAR Administration Protocol Atorvastatin Calcium 40 mg 01/20/20 22:00 03/24/20 21:47 Atorvastatin 40 Mg Tab PO 40 mg QHS CAR Administration Clopidogrel Bisulfate 75 mg 01/21/20 06:00 03/24/20 09:29 Clopidogrel 75 Mg Tab PO 75 mg QDAY CAR Administration Dextrose 50 ml 01/31/20 18:51 02/05/20 00:56 D50w (25gm) Syringe IV 50 ml Q30MIN PRN Administration Hypoglycemia Protocol Digoxin 0.125 mg 02/25/20 17:00 03/24/20 17:00 Lanoxin PO 0.125 mg DAILY@1700 CAR Administration Docusate Sodium 100 mg 02/22/20 10:00 03/24/20 21:46 Docusate Sodium 100 Mg/10 Ml Oral Liqd FEEDTUBE 100 mg BID CAR Administration Glycopyrrolate 2 mg 02/24/20 21:00 03/24/20 21:45 Glycopyrrolate 2 Mg Tab PO 2 mg TID CAR Administration Haloperidol Lactate 5 mg 02/10/20 14:20 03/19/20 23:26 Haloperidol Lactate 5 Mg/1 Ml Inj IV 5 mg Q6H PRN Administration Agitation Hydrophilic Ointment 1 applic 01/17/20 15:26 02/24/20 23:20 Lip Therapy Vaseline TP 1 applic DIRECT PRN Administration Dry Lips Insulin Human Regular 0 unit 02/01/20 18:00 03/25/20 06:47 Humulin R SUB-Q 1 unit Q6H CAR Administration Protocol Lansoprazole 30 mg 02/05/20 16:00 03/24/20 09:29 Lansoprazole 30 Mg Solutab FEEDTUBE 30 mg QDAY CAR Administration Metoprolol Tartrate 5 mg 01/11/20 08:00 03/18/20 16:52 Metoprolol Tartrate 5 Mg/5 Ml Inj IV 5 mg Q6H PRN Administration SEE INSTRUCTIONS Metoprolol Tartrate 12.5 mg 02/28/20 12:00 03/24/20 21:49 Metoprolol FEEDTUBE 12.5 mg BID CAR Administration Midodrine 15 mg 02/04/20 16:00 03/24/20 17:01 Midodrine 5 Mg Tab PO 15 mg TID@0800,1200,1600 CAR Administration Morphine Sulfate 2 mg 01/06/20 15:41 03/19/20 13:20 Morphine 2 Mg/1 Ml Inj IV 2 mg Q4H PRN Administration Pain, Moderate (4-6) Multi-Ingred Cream/Lotion/Oil/Oint 1 applic 02/01/20 15:52 Artificial Tears Ophth Oint OU Q4HR PRN Dry Eye(s) Nitroglycerin 0.4 mg 01/19/20 21:09 01/20/20 03:03 Nitroglycerin 0.4 Mg Tab Subl SL 0.4 mg .Q5MIN PRN Administration Chest Pain Ondansetron HCl 4 mg 03/25/20 08:01 Ondansetron 4 Mg/2 Ml Inj IV Q4H PRN Nausea And Vomiting Polyethylene Glycol 17 gm 12/04/19 22:00 03/24/20 21:47 Miralax 3350 PO 17 gm QHS CAR Administration Quetiapine Fumarate 300 mg 01/13/20 22:00 03/24/20 21:49 Quetiapine 100 Mg Tab PO 300 mg BID CAR Administration Simple Syrup 15 ml 01/09/20 12:01 Simple Syrup 15 Ml FEEDTUBE PRN PRN Hypoglycemia Simple Syrup 30 ml 01/09/20 12:01 Simple Syrup 15 Ml FEEDTUBE PRN PRN Hypoglycemia Sodium Bicarbonate 325 mg 01/09/20 12:01 03/07/20 12:56 Sodium Bicarbonate 325 Mg Tab FEEDTUBE 325 mg PRN PRN Administration For Clogged Feeding Tube Sodium Chloride 10 ml 11/24/19 10:00 03/24/20 21:50 Sodium Chloride 0.9% 10 Ml Flush Syringe IV 10 ml BID CAR Administration Tamsulosin HCl 0.8 mg 12/20/19 22:00 03/24/20 21:46 Tamsulosin 0.4 Mg Cap PO 0.8 mg QHS CAR Administration Nutrition/Malnutrition Assess - Dietary Evaluation Nutrition/Malnutrition Findings: Nutrition Notes Start: 11/24/19 12:22 Freq: Status: Active Protocol: Document 03/22/20 11:05 LM (Rec: 03/22/20 11:10 LM [id number]) Nutrition Notes Initial or Follow up Reassessment Current Diagnosis Coronary Artery Disease,Heart Failure,Respiratory Failure, Stroke,Hyperlipidemia Other Pertinent Diagnosis pneumonia Current Diet Osmolite 1.5 at 65ml/hr Labs/Tests Reviewed Pertinent Medications Humulin Height 6 ft 2 in Weight 130.5 kg Mobile Body Weight (kg) 86.36 BMI 36.9 Weight change and time frame Wt change noted. Pt with edema . Weight Status Obese Subjective/Other Information TF running at 55ml/hr. Per RN pt tolerates TF at lower rate and pt vomits when rate is at 65ml/hr. Percent of energy/protein needs met: 95%/48% Burn Absent Trauma Absent GI Symptoms None Current % PO Negligible Minimum of two criteria Yes Muscle Mass Mild Depletion (non-severe) Fluid Accumulation Mild (non-severe) Reduced Sales Porter Strength Measurably Reduced (severe) #2 Nutrition Diagnosis Malnutrition Diagnosis Progress(for reassessment Continues documentation) #1 Nutrition Diagnosis Inadequate oral intake Diagnosis Progress(for reassessment Continues documentation) Is patient on ventilator? Yes Is Patient Ambulatory and/or Out of Bed No REE-([facility]-confined to bed) 2608.188 Kcal/Kg value to use for calculation 16 Approximate Energy Requirements Using 2088 kcal/Kg Calculation Used for Recommendations Kcal/kg Additional Notes Protein needs are 173g ( greater than 2g/kg IBW) Fluid needs are 1 ml/kcal Nutrition Intervention Change Diet Order: Continue TF via PEG Nutrition Support: Osmolite 1.5 at 65 ml/hr. Flush 200 ml q4h. Kcal 2,340 Protein (gm) 98 Fluid (mL) 1,189 Goal #1 Meet at least 75% of pt's energy and protein needs via TF Goal #2 TF tolerance Anticipated Discharge Needs: unable to determine at this time Follow-Up By: 03/28/20 Additional Comments F/U for TF tolerance
[2020-03-25] MEDS: MORPHINE 2 MG/1 ML INJ IV PRN (08:29)
[2020-03-25] MEDS: GLYCOPYRROLATE 2 MG TAB PO SCH ×3 (08:35→22:34)
[2020-03-25] MEDS: MIDODRINE 5 MG TAB PO SCH ×3 (08:35→17:12)
[2020-03-25] MEDS: APIXABAN 5 MG TAB PO SCH ×2 (10:48→22:34)
[2020-03-25] MEDS: CLOPIDOGREL 75 MG TAB PO SCH (10:48)
[2020-03-25] MEDS: QUEtiapine 100 MG TAB PO SCH ×2 (10:48→22:34)
[2020-03-25] MEDS: METOPROLOL TARTRATE 25 MG TAB FEEDTUBE SCH ×2 (10:48→22:35)
[2020-03-25] MEDS: LANSOPRAZOLE 30 MG SOLUTAB FEEDTUBE SCH (10:48)
[2020-03-25] MEDS: DOCUSATE SODIUM 100 MG/10 ML ORAL LIQD FEEDTUBE SCH ×2 (10:50→22:34)
--- NOTE | 2020-03-25 15:24 | Progress Note ---
Assessment and Plan - Patient Problems (1) Paroxysmal atrial fibrillation Current Visit: Yes Status: Acute Plan to address problem: Continue current management of atrial fibrillation on a rate control strategy and oral anticoagulation, stable cardiac status. Subjective Date of service: 03/25/20 Principal diagnosis: Ac hypoxemic resp failure; Pneumonia; PUI COVID-19; CHF; COPD; HTN Interval history: Patient is awake, on the vent via his trach. Heart rate is 120, atrial fibrillation. Objective Vital Signs Temp Pulse Pulse Resp BP Pulse Ox Pulse Ox 03/25/20 14:01 127 H 21 89/67 99 03/25/20 13:01 116 H 19 102/73 99 03/25/20 12:01 115 H 13 95/71 99 03/25/20 12:00 99 F 105 H 20 98 03/25/20 11:20 123 H 18 99/77 94 03/25/20 11:00 105 H 19 101/76 95 03/25/20 10:48 124 H 101/76 03/25/20 10:01 128 H 22 101/76 95 03/25/20 09:00 132 H 25 H 110/89 92 03/25/20 08:00 97.6 F 118 H 119 H 20 109/78 98 03/25/20 07:41 110 H 26 H 101/72 98 03/25/20 07:40 127 H 101/72 98 03/25/20 07:01 125 H 20 101/72 99 03/25/20 06:01 114 H 24 106/81 99 03/25/20 05:55 99 03/25/20 05:00 107 H 23 104/77 97 03/25/20 04:45 131 H 92/70 97 03/25/20 04:00 98.8 F 117 H 121 H 15 92/70 98 03/25/20 03:01 117 H 17 107/76 97 03/25/20 02:00 114 H 20 113/85 100 03/25/20 01:18 112 H 103/78 96 03/25/20 01:01 122 H 21 103/78 98 03/25/20 00:18 30 H 03/25/20 00:01 138 H 35 H 116/92 100 03/25/20 00:00 97.6 F 108 H 133 H 29 H 98 03/24/20 23:01 120 H 19 106/72 97 03/24/20 22:00 108 H 18 118/58 97 03/24/20 21:49 125 H 104/82 03/24/20 21:13 121 H 104/82 97 03/24/20 21:00 128 H 22 104/82 98 03/24/20 20:00 97.2 F L 123 H 108 H 22 103/78 98 03/24/20 19:00 119 H 21 95/77 98 03/24/20 18:05 125 H 22 102/75 99 03/24/20 18:01 123 H 24 102/75 100 03/24/20 17:00 120 H 24 100/74 99 03/24/20 16:45 99 03/24/20 16:41 106 H 96/75 99 03/24/20 16:00 98.2 F 114 H 21 96/75 98 - Physical Examination General: No Apparent Distress, Other (s/p trach) HEENT: Positive: PERRL Neck: Positive: neck supple, Other (s/p trach) Cardiac: Positive: irregularly irregular Lungs: Positive: Decreased Breath Sounds Neuro: Positive: Grossly Intact, Weakness Abdomen: Positive: Soft Skin: Positive: Clear Extremities: Absent: edema - Allied health notes Allied health notes reviewed: nursing
[2020-03-25] MEDS: DIGOXIN 0.125 MG TAB PO SCH (17:12)
--- NOTE | 2020-03-25 17:23 | Progress Note ---
Assessment and Plan Acute hypoxemic respiratory failure Bilateral pneumonia, community acquired. Acute LLL branch P.E. Acute DVT Person under investigation for COVID-19 infection. Acute congestive heart failure exacerbation. History of cerebrovascular accident. Acute chronic obstructive pulmonary disease exacerbation. Hypertension and hypertensive urgency at presentation. History of arthritis. Leukocytosis. Lactic acidosis. Oropharyngeal dysphagia - repeat CXR pending - continue to increase time on T-Collar till RTC - continue low dose diuresis (Lasix 20 mg IV X 1 then 20 mg p.o. daily) - remains a difficult wean, continue care as below; - continue daily SAT's and SBT assessment as tolerated - continue to wean oxygen for O2 sat's > 92% - continue bronchodilators with routine trach care and pulmonary hygiene per RT - VAP bundle addressed (Aspiration precautions, HOB >40) - continue to wean per pulmonary driven protocols - continue to rest on AC qhs - continue Flomax - antiinfective's per ID rec's - Midodrine for BP support - prn mucomyst nebs re: secretions - continue full anticoagulation with Apixaban - continue seroquel for anxiolysis / delirium - COVID isolation per facility protocol - prn diuresis while following electrolytes / I's & O's - sedation target is RASS 0 to -1 - continue prn analgesia per CPOT score - follow clinically re: fever curves / trend WBC - Avoid delirium (no benzodiazepines if they can be avoided) - Maintain sleep-wake cycle - enteral nutrition at goal rate as tolerated - continue accucheck's with glycemic control per SSI for target blood glucose goal of 140-180 mg/dL while critically ill; Avoid hypoglycemia - for VTE he is onEliquis - continue stress ulcer prophylaxis with Famotidine - continue mobility protocols for pressure ulcer prophylaxis - continue fall precautions - continue wound care management per RN / WCT - Supportive transfusions to keep HgB>7g/dL - CXR's and ABG's prn - Continue to monitor neurologic function - Continue chronic home medications - Continue all supportive care ........ re-evaluate in am & prn CONDITION: CRITICAL PROGNOSIS: GUARDED CODE STATUS: FULL CODE The high probability of a clinically significant, sudden or life threatening deterioration of the [Respiratory, cardiovascular & neurological] system(s) required my full and direct attention, intervention and personal management. The aggregate critical care time was [35] minutes without overlap. Time includes spent on [x] Data Review and interpretation [x] Patient assessment and monitoring of vital signs [x] Documentation [x] Medication orders and management Subjective Date of service: 03/25/20 Principal diagnosis: Ac hypoxemic resp failure; Pneumonia; PUI COVID-19; CHF; COPD; HTN Interval history: Patient is seen today for: Acute hypoxemic respiratory failure; Adan. Pneumonia (CAP); PUI COVID-19 infection; AE-CHF; AE-COPD; H/O CVA; HTN Seen and examined at bedside; 24 hour events reviewed; nursing and respiratory care staff consulted; no adverse overnight events reported to me; resting peacefully in bed; remains on MVS; tolerating a little more time on T-Collar now; no N/V/F/C Objective Vital Signs - 12hr 03/25/20 03/25/20 03/25/20 05:55 06:01 07:01 Temperature Pulse Rate 114 H 125 H Pulse Rate [ From Monitor] Respiratory 24 20 Rate Blood Pressure 106/81 101/72 O2 Sat by Pulse 99 99 Oximetry O2 Sat by Pulse 99 Oximetry [ Assessment] 03/25/20 03/25/20 03/25/20 07:40 07:41 08:00 Temperature 97.6 F Pulse Rate 127 H 110 H 118 H Pulse Rate [ 119 H From Monitor] Respiratory 26 H 20 Rate Blood Pressure 101/72 101/72 109/78 O2 Sat by Pulse 98 98 98 Oximetry O2 Sat by Pulse Oximetry [ Assessment] 03/25/20 03/25/20 03/25/20 09:00 10:01 10:48 Temperature Pulse Rate 132 H 128 H 124 H Pulse Rate [ From Monitor] Respiratory 25 H 22 Rate Blood Pressure 110/89 101/76 101/76 O2 Sat by Pulse 92 95 Oximetry O2 Sat by Pulse Oximetry [ Assessment] 03/25/20 03/25/20 03/25/20 11:00 11:20 12:00 Temperature 99 F Pulse Rate 105 H 123 H Pulse Rate [ 105 H From Monitor] Respiratory 19 18 20 Rate Blood Pressure 101/76 99/77 O2 Sat by Pulse 95 94 98 Oximetry O2 Sat by Pulse Oximetry [ Assessment] 03/25/20 03/25/20 03/25/20 12:01 13:01 14:01 Temperature Pulse Rate 115 H 116 H 127 H Pulse Rate [ From Monitor] Respiratory 13 21 Rate Blood Pressure 95/71 102/73 89/67 O2 Sat by Pulse 99 99 99 Oximetry O2 Sat by Pulse Oximetry [ Assessment] 03/25/20 03/25/20 03/25/20 15:00 16:00 16:01 Temperature 98.8 F Pulse Rate 126 H 130 H Pulse Rate [ 105 H From Monitor] Respiratory 19 20 31 H Rate Blood Pressure 97/68 97/68 O2 Sat by Pulse 99 98 96 Oximetry O2 Sat by Pulse Oximetry [ Assessment] 03/25/20 17:12 Temperature Pulse Rate 125 H Pulse Rate [ From Monitor] Respiratory Rate Blood Pressure 98/61 O2 Sat by Pulse Oximetry O2 Sat by Pulse Oximetry [ Assessment] Constitutional: no acute distress, other (elderly and obese male, normocephalic with mildly increased respiratory effort at rest) Eyes: non-icteric ENT: oropharynx moist, other (+ midline tracheostomy) Neck: supple, no JVD Effort: mildly labored Ascultation: Bilateral: diminished breath sounds, rhonchi (scant), other (small tracheal secretions ) Percussion: Bilateral: not dull Cardiovascular: irregular rhythm Gastrointestinal: normoactive bowel sounds, soft, non-tender, non-distended (protuberant), other (protuberant; PEG in place) Integumentary: normal Extremities: no cyanosis, pulses normal, no ischemia or petechiae, edema (2+) Neurologic: non-focal exam (grossly; moves extremities), pupils equal and round, unable to assess Psychiatric: mood appropriate, affect normal CBC and BMP: 03/31/20 04:13 03/31/20 04:13 ABG, PT/INR, D-dimer: ABG ABG pH 7.454 (7.320-7.450) H 03/12/20 04:45 POC ABG pCO2 45.6 mmHg (32.0-48.0) 03/12/20 04:45 ABG pCO2 47.8 mm Hg 02/20/20 06:45 POC ABG pO2 69.2 mmHg (83-108) L 03/12/20 04:45 ABG pO2 88.7 mm Hg (80.0-90.0) 02/20/20 06:45 POC ABG HCO3 31.3 03/12/20 04:45 ABG O2 Saturation 97.2 % (95.0-99.0) 02/20/20 06:45 PT/INR, D-dimer PT 27.0 Sec. (12.2-14.9) H 02/07/20 15:03 INR 2.46 (0.87-1.13) H 02/07/20 15:03 Abnormal lab findings: Abnormal Labs 11/24/19 11/24/19 11/24/19 02:53 02:53 03:45 WBC 14.3 H RBC Hgb Hct MCHC RDW 17.2 H MCV MCH Lymph % (Auto) Holt % (Auto) Holt # Eos # Lymph # (Auto) Holt # (Auto) Eos # (Auto) Seg Neutrophils % Seg Neuts % (Manual) Baso # (Auto) Lymphocytes % (Manual) Monocytes % (Manual) Eosinophils % (Manual) Basophils % (Manual) Seg Neutrophils # Seg Neutrophils # Man 8.3 H Lymphocytes # (Manual) Monocytes # (Manual) 0.9 H Eosinophils # (Manual) Nucleated RBC % Basophils # (Manual) PT INR APTT Heparin Anti-Xa Level ABG pH 7.313 L POC ABG pO2 ABG pO2 102.8 H ABG HCO3 ABG O2 Saturation ABG Base Excess -2.9 L POC ABG pCO2 ABG Hemoglobin ABG Oxyhemoglobin ABG Sodium ABG Chloride ABG Glucose Oxyhemoglobin 93.9 L Sodium Potassium Chloride Carbon Dioxide BUN Creatinine Glucose 195 H POC Glucose Lactic Acid Calcium Phosphorus Magnesium AST ALT Lactate Dehydrogenase Total Bilirubin Direct Bilirubin CK-MB (CK-2) 4.3 H C-Reactive Protein NT-Pro-B Natriuret Pep 1181 H Total Protein Albumin Arterial Blood Glucose Urine WBC (Auto) Urine Creatinine Digoxin 11/24/19 11/24/19 11/24/19 04:53 04:53 10:37 WBC RBC Hgb Hct MCHC RDW MCV MCH Lymph % (Auto) Holt % (Auto) Holt # Eos # Lymph # (Auto) Holt # (Auto) Eos # (Auto) Seg Neutrophils % Seg Neuts % (Manual) Baso # (Auto) Lymphocytes % (Manual) Monocytes % (Manual) Eosinophils % (Manual) Basophils % (Manual) Seg Neutrophils # Seg Neutrophils # Man Lymphocytes # (Manual) Monocytes # (Manual) Eosinophils # (Manual) Nucleated RBC % Basophils # (Manual) PT INR APTT Heparin Anti-Xa Level ABG pH POC ABG pO2 ABG pO2 ABG HCO3 ABG O2 Saturation ABG Base Excess POC ABG pCO2 ABG Hemoglobin ABG Oxyhemoglobin ABG Sodium ABG Chloride ABG Glucose Oxyhemoglobin Sodium Potassium Chloride Carbon Dioxide BUN Creatinine Glucose 162 H POC Glucose Lactic Acid 2.40 H* 2.50 H* Calcium Phosphorus Magnesium AST ALT Lactate Dehydrogenase 240 H Total Bilirubin Direct Bilirubin CK-MB (CK-2) C-Reactive Protein NT-Pro-B Natriuret Pep Total Protein Albumin Arterial Blood Glucose Urine WBC (Auto) Urine Creatinine Digoxin 11/24/19 11/24/19 11/24/19 12:21 14:50 19:54 WBC RBC Hgb Hct MCHC RDW MCV MCH Lymph % (Auto) Holt % (Auto) Holt # Eos # Lymph # (Auto) Holt # (Auto) Eos # (Auto) Seg Neutrophils % Seg Neuts % (Manual) Baso # (Auto) Lymphocytes % (Manual) Monocytes % (Manual) Eosinophils % (Manual) Basophils % (Manual) Seg Neutrophils # Seg Neutrophils # Man Lymphocytes # (Manual) Monocytes # (Manual) Eosinophils # (Manual) Nucleated RBC % Basophils # (Manual) PT INR APTT Heparin Anti-Xa Level ABG pH POC ABG pO2 ABG pO2 ABG HCO3 ABG O2 Saturation ABG Base Excess POC ABG pCO2 ABG Hemoglobin ABG Oxyhemoglobin ABG Sodium ABG Chloride ABG Glucose Oxyhemoglobin Sodium Potassium Chloride Carbon Dioxide BUN Creatinine Glucose POC Glucose 145 H 143 H 124 H Lactic Acid Calcium Phosphorus Magnesium AST ALT Lactate Dehydrogenase Total Bilirubin Direct Bilirubin CK-MB (CK-2) C-Reactive Protein NT-Pro-B Natriuret Pep Total Protein Albumin Arterial Blood Glucose Urine WBC (Auto) Urine Creatinine Digoxin 11/25/19 11/25/19 11/25/19 00:18 03:18 05:11 WBC 13.7 H RBC Hgb Hct MCHC RDW 17.1 H MCV MCH Lymph % (Auto) 10.8 L Holt % (Auto) 8.7 H Holt # 1.2 H Eos # Lymph # (Auto) Holt # (Auto) Eos # (Auto) Seg Neutrophils % 80.2 H Seg Neuts % (Manual) Baso # (Auto) Lymphocytes % (Manual) Monocytes % (Manual) Eosinophils % (Manual) Basophils % (Manual) Seg Neutrophils # 11.0 H Seg Neutrophils # Man Lymphocytes # (Manual) Monocytes # (Manual) Eosinophils # (Manual) Nucleated RBC % Basophils # (Manual) PT INR APTT Heparin Anti-Xa Level ABG pH 7.333 L POC ABG pO2 ABG pO2 61.2 L ABG HCO3 ABG O2 Saturation 90.2 L ABG Base Excess POC ABG pCO2 ABG Hemoglobin 13.7 L ABG Oxyhemoglobin ABG Sodium ABG Chloride ABG Glucose Oxyhemoglobin 88.2 L Sodium Potassium Chloride Carbon Dioxide BUN Creatinine Glucose POC Glucose 109 H Lactic Acid Calcium Phosphorus Magnesium AST ALT Lactate Dehydrogenase Total Bilirubin Direct Bilirubin CK-MB (CK-2) C-Reactive Protein NT-Pro-B Natriuret Pep Total Protein Albumin Arterial Blood Glucose Urine WBC (Auto) Urine Creatinine Digoxin 11/25/19 11/25/19 11/26/19 05:11 11:40 03:12 WBC RBC Hgb Hct MCHC RDW MCV MCH Lymph % (Auto) Holt % (Auto) Holt # Eos # Lymph # (Auto) Holt # (Auto) Eos # (Auto) Seg Neutrophils % Seg Neuts % (Manual) Baso # (Auto) Lymphocytes % (Manual) Monocytes % (Manual) Eosinophils % (Manual) Basophils % (Manual) Seg Neutrophils # Seg Neutrophils # Man Lymphocytes # (Manual) Monocytes # (Manual) Eosinophils # (Manual) Nucleated RBC % Basophils # (Manual) PT INR APTT Heparin Anti-Xa Level ABG pH POC ABG pO2 ABG pO2 155.1 H ABG HCO3 27.8 H ABG O2 Saturation ABG Base Excess POC ABG pCO2 ABG Hemoglobin 12.2 L ABG Oxyhemoglobin ABG Sodium ABG Chloride ABG Glucose Oxyhemoglobin Sodium Potassium Chloride Carbon Dioxide BUN 23 H Creatinine Glucose 110 H POC Glucose 108 H Lactic Acid Calcium Phosphorus Magnesium AST ALT Lactate Dehydrogenase Total Bilirubin Direct Bilirubin CK-MB (CK-2) C-Reactive Protein NT-Pro-B Natriuret Pep Total Protein Albumin Arterial Blood Glucose Urine WBC (Auto) Urine Creatinine Digoxin 11/26/19 11/26/19 11/26/19 06:17 10:43 10:43 WBC 11.4 H RBC Hgb Hct MCHC RDW 17.1 H MCV MCH Lymph % (Auto) Holt % (Auto) Holt # Eos # Lymph # (Auto) Holt # (Auto) Eos # (Auto) Seg Neutrophils % Seg Neuts % (Manual) Baso # (Auto) Lymphocytes % (Manual) Monocytes % (Manual) Eosinophils % (Manual) Basophils % (Manual) Seg Neutrophils # Seg Neutrophils # Man Lymphocytes # (Manual) Monocytes # (Manual) Eosinophils # (Manual) Nucleated RBC % Basophils # (Manual) PT INR APTT Heparin Anti-Xa Level ABG pH POC ABG pO2 ABG pO2 ABG HCO3 ABG O2 Saturation ABG Base Excess POC ABG pCO2 ABG Hemoglobin ABG Oxyhemoglobin ABG Sodium ABG Chloride ABG Glucose Oxyhemoglobin Sodium Potassium Chloride Carbon Dioxide BUN 29 H Creatinine Glucose POC Glucose 107 H Lactic Acid Calcium Phosphorus Magnesium AST ALT Lactate Dehydrogenase Total Bilirubin Direct Bilirubin CK-MB (CK-2) C-Reactive Protein NT-Pro-B Natriuret Pep Total Protein Albumin Arterial Blood Glucose Urine WBC (Auto) Urine Creatinine Digoxin 11/26/19 11/27/19 11/27/19 17:11 01:53 04:11 WBC RBC Hgb Hct MCHC RDW MCV MCH Lymph % (Auto) Holt % (Auto) Holt # Eos # Lymph # (Auto) Holt # (Auto) Eos # (Auto) Seg Neutrophils % Seg Neuts % (Manual) Baso # (Auto) Lymphocytes % (Manual) Monocytes % (Manual) Eosinophils % (Manual) Basophils % (Manual) Seg Neutrophils # Seg Neutrophils # Man Lymphocytes # (Manual) Monocytes # (Manual) Eosinophils # (Manual) Nucleated RBC % Basophils # (Manual) PT INR APTT Heparin Anti-Xa Level ABG pH POC ABG pO2 ABG pO2 ABG HCO3 29.2 H ABG O2 Saturation ABG Base Excess 3.4 H POC ABG pCO2 ABG Hemoglobin 13.3 L ABG Oxyhemoglobin ABG Sodium ABG Chloride ABG Glucose Oxyhemoglobin 94.5 L Sodium Potassium Chloride Carbon Dioxide BUN Creatinine Glucose POC Glucose 113 H 108 H Lactic Acid Calcium Phosphorus Magnesium AST ALT Lactate Dehydrogenase Total Bilirubin Direct Bilirubin CK-MB (CK-2) C-Reactive Protein NT-Pro-B Natriuret Pep Total Protein Albumin Arterial Blood Glucose Urine WBC (Auto) Urine Creatinine Digoxin 11/27/19 11/28/19 11/28/19 05:27 05:00 05:25 WBC RBC Hgb Hct MCHC RDW MCV MCH Lymph % (Auto) Holt % (Auto) Holt # Eos # Lymph # (Auto) Holt # (Auto) Eos # (Auto) Seg Neutrophils % Seg Neuts % (Manual) Baso # (Auto) Lymphocytes % (Manual) Monocytes % (Manual) Eosinophils % (Manual) Basophils % (Manual) Seg Neutrophils # Seg Neutrophils # Man Lymphocytes # (Manual) Monocytes # (Manual) Eosinophils # (Manual) Nucleated RBC % Basophils # (Manual) PT INR APTT Heparin Anti-Xa Level ABG pH POC ABG pO2 68.1 L ABG pO2 ABG HCO3 ABG O2 Saturation ABG Base Excess POC ABG pCO2 ABG Hemoglobin ABG Oxyhemoglobin 91.2 L ABG Sodium ABG Chloride ABG Glucose Oxyhemoglobin Sodium Potassium Chloride Carbon Dioxide BUN Creatinine Glucose POC Glucose 111 H 110 H Lactic Acid Calcium Phosphorus Magnesium AST ALT Lactate Dehydrogenase Total Bilirubin Direct Bilirubin CK-MB (CK-2) C-Reactive Protein NT-Pro-B Natriuret Pep Total Protein Albumin Arterial Blood Glucose Urine WBC (Auto) Urine Creatinine Digoxin 11/28/19 11/28/19 11/28/19 12:08 13:47 13:47 WBC 11.3 H RBC Hgb Hct MCHC RDW 16.1 H MCV MCH Lymph % (Auto) Holt % (Auto) 9.9 H Holt # 1.1 H Eos # Lymph # (Auto) Holt # (Auto) Eos # (Auto) Seg Neutrophils % 71.4 H Seg Neuts % (Manual) Baso # (Auto) Lymphocytes % (Manual) Monocytes % (Manual) Eosinophils % (Manual) Basophils % (Manual) Seg Neutrophils # 8.1 H Seg Neutrophils # Man Lymphocytes # (Manual) Monocytes # (Manual) Eosinophils # (Manual) Nucleated RBC % Basophils # (Manual) PT INR APTT Heparin Anti-Xa Level ABG pH POC ABG pO2 ABG pO2 ABG HCO3 ABG O2 Saturation ABG Base Excess POC ABG pCO2 ABG Hemoglobin ABG Oxyhemoglobin ABG Sodium ABG Chloride ABG Glucose Oxyhemoglobin Sodium Potassium Chloride Carbon Dioxide BUN 23 H Creatinine Glucose 123 H POC Glucose 112 H Lactic Acid Calcium Phosphorus Magnesium AST ALT Lactate Dehydrogenase Total Bilirubin Direct Bilirubin CK-MB (CK-2) C-Reactive Protein NT-Pro-B Natriuret Pep Total Protein Albumin 3.7 L Arterial Blood Glucose Urine WBC (Auto) Urine Creatinine Digoxin 11/28/19 11/29/19 11/29/19 17:26 03:55 17:04 WBC RBC Hgb Hct MCHC RDW MCV MCH Lymph % (Auto) Holt % (Auto) Holt # Eos # Lymph # (Auto) Holt # (Auto) Eos # (Auto) Seg Neutrophils % Seg Neuts % (Manual) Baso # (Auto) Lymphocytes % (Manual) Monocytes % (Manual) Eosinophils % (Manual) Basophils % (Manual) Seg Neutrophils # Seg Neutrophils # Man Lymphocytes # (Manual) Monocytes # (Manual) Eosinophils # (Manual) Nucleated RBC % Basophils # (Manual) PT INR APTT Heparin Anti-Xa Level ABG pH POC ABG pO2 ABG pO2 65.7 L ABG HCO3 28.3 H ABG O2 Saturation 93.9 L ABG Base Excess 3.6 H POC ABG pCO2 ABG Hemoglobin 13.3 L ABG Oxyhemoglobin ABG Sodium ABG Chloride ABG Glucose Oxyhemoglobin 91.5 L Sodium Potassium Chloride Carbon Dioxide BUN Creatinine Glucose POC Glucose 123 H 119 H Lactic Acid Calcium Phosphorus Magnesium AST ALT Lactate Dehydrogenase Total Bilirubin Direct Bilirubin CK-MB (CK-2) C-Reactive Protein NT-Pro-B Natriuret Pep Total Protein Albumin Arterial Blood Glucose Urine WBC (Auto) Urine Creatinine Digoxin 11/30/19 11/30/19 11/30/19 04:17 04:17 04:56 WBC 13.4 H RBC Hgb Hct MCHC RDW 15.6 H MCV MCH Lymph % (Auto) Holt % (Auto) Holt # Eos # Lymph # (Auto) Holt # (Auto) Eos # (Auto) Seg Neutrophils % Seg Neuts % (Manual) Baso # (Auto) Lymphocytes % (Manual) Monocytes % (Manual) Eosinophils % (Manual) Basophils % (Manual) Seg Neutrophils # Seg Neutrophils # Man Lymphocytes # (Manual) Monocytes # (Manual) Eosinophils # (Manual) Nucleated RBC % Basophils # (Manual) PT INR APTT Heparin Anti-Xa Level ABG pH POC ABG pO2 ABG pO2 56.3 L ABG HCO3 29.3 H ABG O2 Saturation 91.5 L ABG Base Excess 4.7 H POC ABG pCO2 ABG Hemoglobin 12.1 L ABG Oxyhemoglobin ABG Sodium ABG Chloride ABG Glucose Oxyhemoglobin 89.2 L Sodium 147 H Potassium Chloride Carbon Dioxide BUN 30 H Creatinine Glucose 124 H POC Glucose Lactic Acid Calcium Phosphorus Magnesium AST ALT Lactate Dehydrogenase Total Bilirubin Direct Bilirubin CK-MB (CK-2) C-Reactive Protein NT-Pro-B Natriuret Pep Total Protein Albumin 3.8 L Arterial Blood Glucose Urine WBC (Auto) Urine Creatinine Digoxin 11/30/19 11/30/19 11/30/19 05:51 11:54 18:17 WBC RBC Hgb Hct MCHC RDW MCV MCH Lymph % (Auto) Holt % (Auto) Holt # Eos # Lymph # (Auto) Holt # (Auto) Eos # (Auto) Seg Neutrophils % Seg Neuts % (Manual) Baso # (Auto) Lymphocytes % (Manual) Monocytes % (Manual) Eosinophils % (Manual) Basophils % (Manual) Seg Neutrophils # Seg Neutrophils # Man Lymphocytes # (Manual) Monocytes # (Manual) Eosinophils # (Manual) Nucleated RBC % Basophils # (Manual) PT INR APTT Heparin Anti-Xa Level ABG pH POC ABG pO2 ABG pO2 ABG HCO3 ABG O2 Saturation ABG Base Excess POC ABG pCO2 ABG Hemoglobin ABG Oxyhemoglobin ABG Sodium ABG Chloride ABG Glucose Oxyhemoglobin Sodium Potassium Chloride Carbon Dioxide BUN Creatinine Glucose POC Glucose 127 H 115 H 143 H Lactic Acid Calcium Phosphorus Magnesium AST ALT Lactate Dehydrogenase Total Bilirubin Direct Bilirubin CK-MB (CK-2) C-Reactive Protein NT-Pro-B Natriuret Pep Total Protein Albumin Arterial Blood Glucose Urine WBC (Auto) Urine Creatinine Digoxin 12/01/19 12/01/19 12/01/19 01:18 05:22 12:16 WBC RBC Hgb Hct MCHC RDW MCV MCH Lymph % (Auto) Holt % (Auto) Holt # Eos # Lymph # (Auto) Holt # (Auto) Eos # (Auto) Seg Neutrophils % Seg Neuts % (Manual) Baso # (Auto) Lymphocytes % (Manual) Monocytes % (Manual) Eosinophils % (Manual) Basophils % (Manual) Seg Neutrophils # Seg Neutrophils # Man Lymphocytes # (Manual) Monocytes # (Manual) Eosinophils # (Manual) Nucleated RBC % Basophils # (Manual) PT INR APTT Heparin Anti-Xa Level ABG pH POC ABG pO2 ABG pO2 ABG HCO3 ABG O2 Saturation ABG Base Excess POC ABG pCO2 ABG Hemoglobin ABG Oxyhemoglobin ABG Sodium ABG Chloride ABG Glucose Oxyhemoglobin Sodium Potassium 3.5 L Chloride 107.8 H Carbon Dioxide BUN 37 H Creatinine Glucose 157 H POC Glucose 118 H 148 H Lactic Acid Calcium 8.2 L D Phosphorus Magnesium AST 48 H ALT 60 H Lactate Dehydrogenase 194 H Total Bilirubin Direct Bilirubin CK-MB (CK-2) C-Reactive Protein 8.50 H NT-Pro-B Natriuret Pep Total Protein 5.5 L Albumin 2.8 L Arterial Blood Glucose Urine WBC (Auto) Urine Creatinine Digoxin 12/01/19 12/02/19 12/02/19 18:04 00:05 05:16 WBC 11.4 H RBC Hgb Hct MCHC RDW 15.9 H MCV MCH Lymph % (Auto) Holt % (Auto) 9.9 H Holt # 1.1 H Eos # Lymph # (Auto) Holt # (Auto) Eos # (Auto) Seg Neutrophils % 70.3 H Seg Neuts % (Manual) Baso # (Auto) Lymphocytes % (Manual) Monocytes % (Manual) Eosinophils % (Manual) Basophils % (Manual) Seg Neutrophils # 8.0 H Seg Neutrophils # Man Lymphocytes # (Manual) Monocytes # (Manual) Eosinophils # (Manual) Nucleated RBC % Basophils # (Manual) PT INR APTT Heparin Anti-Xa Level ABG pH POC ABG pO2 ABG pO2 ABG HCO3 ABG O2 Saturation ABG Base Excess POC ABG pCO2 ABG Hemoglobin ABG Oxyhemoglobin ABG Sodium ABG Chloride ABG Glucose Oxyhemoglobin Sodium Potassium Chloride Carbon Dioxide BUN Creatinine Glucose POC Glucose 143 H 107 H Lactic Acid Calcium Phosphorus Magnesium AST ALT Lactate Dehydrogenase Total Bilirubin Direct Bilirubin CK-MB (CK-2) C-Reactive Protein NT-Pro-B Natriuret Pep Total Protein Albumin Arterial Blood Glucose Urine WBC (Auto) Urine Creatinine Digoxin 12/02/19 12/02/19 12/02/19 05:16 06:03 11:52 WBC RBC Hgb Hct MCHC RDW MCV MCH Lymph % (Auto) Holt % (Auto) Holt # Eos # Lymph # (Auto) Holt # (Auto) Eos # (Auto) Seg Neutrophils % Seg Neuts % (Manual) Baso # (Auto) Lymphocytes % (Manual) Monocytes % (Manual) Eosinophils % (Manual) Basophils % (Manual) Seg Neutrophils # Seg Neutrophils # Man Lymphocytes # (Manual) Monocytes # (Manual) Eosinophils # (Manual) Nucleated RBC % Basophils # (Manual) PT INR APTT Heparin Anti-Xa Level ABG pH POC ABG pO2 ABG pO2 ABG HCO3 ABG O2 Saturation ABG Base Excess POC ABG pCO2 ABG Hemoglobin ABG Oxyhemoglobin ABG Sodium ABG Chloride ABG Glucose Oxyhemoglobin Sodium 146 H Potassium Chloride Carbon Dioxide BUN 28 H Creatinine Glucose 123 H POC Glucose 110 H 152 H Lactic Acid Calcium Phosphorus Magnesium AST ALT Lactate Dehydrogenase Total Bilirubin Direct Bilirubin CK-MB (CK-2) C-Reactive Protein NT-Pro-B Natriuret Pep Total Protein Albumin Arterial Blood Glucose Urine WBC (Auto) Urine Creatinine Digoxin 12/02/19 12/02/19 12/02/19 12:58 17:58 23:36 WBC RBC Hgb Hct MCHC RDW MCV MCH Lymph % (Auto) Holt % (Auto) Holt # Eos # Lymph # (Auto) Holt # (Auto) Eos # (Auto) Seg Neutrophils % Seg Neuts % (Manual) Baso # (Auto) Lymphocytes % (Manual) Monocytes % (Manual) Eosinophils % (Manual) Basophils % (Manual) Seg Neutrophils # Seg Neutrophils # Man Lymphocytes # (Manual) Monocytes # (Manual) Eosinophils # (Manual) Nucleated RBC % Basophils # (Manual) PT INR APTT Heparin Anti-Xa Level ABG pH POC ABG pO2 78.1 L ABG pO2 ABG HCO3 ABG O2 Saturation ABG Base Excess POC ABG pCO2 ABG Hemoglobin ABG Oxyhemoglobin ABG Sodium ABG Chloride ABG Glucose Oxyhemoglobin Sodium Potassium Chloride Carbon Dioxide BUN Creatinine Glucose POC Glucose 120 H 123 H Lactic Acid Calcium Phosphorus Magnesium AST ALT Lactate Dehydrogenase Total Bilirubin Direct Bilirubin CK-MB (CK-2) C-Reactive Protein NT-Pro-B Natriuret Pep Total Protein Albumin Arterial Blood Glucose Urine WBC (Auto) Urine Creatinine Digoxin 12/03/19 12/03/19 12/03/19 06:03 06:14 11:46 WBC RBC Hgb Hct MCHC RDW MCV MCH Lymph % (Auto) Holt % (Auto) Holt # Eos # Lymph # (Auto) Holt # (Auto) Eos # (Auto) Seg Neutrophils % Seg Neuts % (Manual) Baso # (Auto) Lymphocytes % (Manual) Monocytes % (Manual) Eosinophils % (Manual) Basophils % (Manual) Seg Neutrophils # Seg Neutrophils # Man Lymphocytes # (Manual) Monocytes # (Manual) Eosinophils # (Manual) Nucleated RBC % Basophils # (Manual) PT INR APTT Heparin Anti-Xa Level ABG pH POC ABG pO2 ABG pO2 ABG HCO3 ABG O2 Saturation ABG Base Excess POC ABG pCO2 ABG Hemoglobin ABG Oxyhemoglobin ABG Sodium ABG Chloride ABG Glucose Oxyhemoglobin Sodium Potassium Chloride Carbon Dioxide BUN Creatinine Glucose POC Glucose 142 H 130 H Lactic Acid Calcium Phosphorus Magnesium AST ALT Lactate Dehydrogenase Total Bilirubin Direct Bilirubin CK-MB (CK-2) C-Reactive Protein NT-Pro-B Natriuret Pep Total Protein Albumin Arterial Blood Glucose Urine WBC (Auto) 8.0 H Urine Creatinine Digoxin 12/03/19 12/03/19 12/04/19 15:50 17:39 00:04 WBC RBC Hgb Hct MCHC RDW MCV MCH Lymph % (Auto) Holt % (Auto) Holt # Eos # Lymph # (Auto) Holt # (Auto) Eos # (Auto) Seg Neutrophils % Seg Neuts % (Manual) Baso # (Auto) Lymphocytes % (Manual) Monocytes % (Manual) Eosinophils % (Manual) Basophils % (Manual) Seg Neutrophils # Seg Neutrophils # Man Lymphocytes # (Manual) Monocytes # (Manual) Eosinophils # (Manual) Nucleated RBC % Basophils # (Manual) PT INR APTT Heparin Anti-Xa Level ABG pH POC ABG pO2 ABG pO2 ABG HCO3 ABG O2 Saturation ABG Base Excess POC ABG pCO2 ABG Hemoglobin ABG Oxyhemoglobin ABG Sodium ABG Chloride ABG Glucose Oxyhemoglobin Sodium Potassium Chloride Carbon Dioxide BUN Creatinine Glucose POC Glucose 146 H 133 H Lactic Acid Calcium Phosphorus 2.40 L Magnesium AST ALT Lactate Dehydrogenase Total Bilirubin Direct Bilirubin CK-MB (CK-2) C-Reactive Protein NT-Pro-B Natriuret Pep Total Protein Albumin Arterial Blood Glucose Urine WBC (Auto) Urine Creatinine Digoxin 12/04/19 12/04/19 12/04/19 03:58 03:58 05:22 WBC 12.5 H RBC Hgb 11.2 L Hct 35.2 L MCHC RDW 16.0 H MCV MCH Lymph % (Auto) Holt % (Auto) 9.6 H Holt # 1.2 H Eos # 0.5 H Lymph # (Auto) Holt # (Auto) Eos # (Auto) Seg Neutrophils % Seg Neuts % (Manual) Baso # (Auto) Lymphocytes % (Manual) Monocytes % (Manual) Eosinophils % (Manual) Basophils % (Manual) Seg Neutrophils # 8.6 H Seg Neutrophils # Man Lymphocytes # (Manual) Monocytes # (Manual) Eosinophils # (Manual) Nucleated RBC % Basophils # (Manual) PT INR APTT Heparin Anti-Xa Level ABG pH POC ABG pO2 ABG pO2 ABG HCO3 ABG O2 Saturation ABG Base Excess POC ABG pCO2 ABG Hemoglobin ABG Oxyhemoglobin ABG Sodium ABG Chloride ABG Glucose Oxyhemoglobin Sodium 146 H Potassium Chloride 108.6 H Carbon Dioxide BUN 30 H Creatinine 0.7 L Glucose 121 H POC Glucose 132 H Lactic Acid Calcium Phosphorus Magnesium AST ALT Lactate Dehydrogenase Total Bilirubin Direct Bilirubin CK-MB (CK-2) C-Reactive Protein NT-Pro-B Natriuret Pep Total Protein Albumin Arterial Blood Glucose Urine WBC (Auto) Urine Creatinine Digoxin 12/04/19 12/04/19 12/05/19 13:26 18:43 00:19 WBC RBC Hgb Hct MCHC RDW MCV MCH Lymph % (Auto) Holt % (Auto) Holt # Eos # Lymph # (Auto) Holt # (Auto) Eos # (Auto) Seg Neutrophils % Seg Neuts % (Manual) Baso # (Auto) Lymphocytes % (Manual) Monocytes % (Manual) Eosinophils % (Manual) Basophils % (Manual) Seg Neutrophils # Seg Neutrophils # Man Lymphocytes # (Manual) Monocytes # (Manual) Eosinophils # (Manual) Nucleated RBC % Basophils # (Manual) PT INR APTT Heparin Anti-Xa Level ABG pH POC ABG pO2 ABG pO2 ABG HCO3 ABG O2 Saturation ABG Base Excess POC ABG pCO2 ABG Hemoglobin ABG Oxyhemoglobin ABG Sodium ABG Chloride ABG Glucose Oxyhemoglobin Sodium Potassium Chloride Carbon Dioxide BUN Creatinine Glucose POC Glucose 185 H 156 H 150 H Lactic Acid Calcium Phosphorus Magnesium AST ALT Lactate Dehydrogenase Total Bilirubin Direct Bilirubin CK-MB (CK-2) C-Reactive Protein NT-Pro-B Natriuret Pep Total Protein Albumin Arterial Blood Glucose Urine WBC (Auto) Urine Creatinine Digoxin 12/05/19 12/05/19 12/05/19 03:37 03:37 05:14 WBC 16.3 H RBC Hgb 11.4 L Hct MCHC RDW 15.6 H MCV MCH Lymph % (Auto) 9.9 L Holt % (Auto) 9.7 H Holt # 1.6 H Eos # Lymph # (Auto) Holt # (Auto) Eos # (Auto) Seg Neutrophils % 78.0 H Seg Neuts % (Manual) Baso # (Auto) Lymphocytes % (Manual) Monocytes % (Manual) Eosinophils % (Manual) Basophils % (Manual) Seg Neutrophils # 12.7 H Seg Neutrophils # Man Lymphocytes # (Manual) Monocytes # (Manual) Eosinophils # (Manual) Nucleated RBC % Basophils # (Manual) PT INR APTT Heparin Anti-Xa Level ABG pH POC ABG pO2 ABG pO2 ABG HCO3 ABG O2 Saturation ABG Base Excess POC ABG pCO2 ABG Hemoglobin ABG Oxyhemoglobin ABG Sodium ABG Chloride ABG Glucose Oxyhemoglobin Sodium 146 H Potassium Chloride 107.2 H Carbon Dioxide BUN 27 H Creatinine 0.7 L Glucose 171 H POC Glucose 168 H Lactic Acid Calcium Phosphorus Magnesium AST ALT Lactate Dehydrogenase Total Bilirubin Direct Bilirubin CK-MB (CK-2) C-Reactive Protein NT-Pro-B Natriuret Pep Total Protein Albumin Arterial Blood Glucose Urine WBC (Auto) Urine Creatinine Digoxin 12/05/19 12/05/19 12/05/19 12:31 18:10 23:58 WBC RBC Hgb Hct MCHC RDW MCV MCH Lymph % (Auto) Holt % (Auto) Holt # Eos # Lymph # (Auto) Holt # (Auto) Eos # (Auto) Seg Neutrophils % Seg Neuts % (Manual) Baso # (Auto) Lymphocytes % (Manual) Monocytes % (Manual) Eosinophils % (Manual) Basophils % (Manual) Seg Neutrophils # Seg Neutrophils # Man Lymphocytes # (Manual) Monocytes # (Manual) Eosinophils # (Manual) Nucleated RBC % Basophils # (Manual) PT INR APTT Heparin Anti-Xa Level ABG pH POC ABG pO2 ABG pO2 ABG HCO3 ABG O2 Saturation ABG Base Excess POC ABG pCO2 ABG Hemoglobin ABG Oxyhemoglobin ABG Sodium ABG Chloride ABG Glucose Oxyhemoglobin Sodium Potassium Chloride Carbon Dioxide BUN Creatinine Glucose POC Glucose 159 H 198 H 115 H Lactic Acid Calcium Phosphorus Magnesium AST ALT Lactate Dehydrogenase Total Bilirubin Direct Bilirubin CK-MB (CK-2) C-Reactive Protein NT-Pro-B Natriuret Pep Total Protein Albumin Arterial Blood Glucose Urine WBC (Auto) Urine Creatinine Digoxin 12/06/19 12/06/19 12/06/19 05:24 05:24 05:25 WBC 14.9 H RBC Hgb 10.8 L Hct 34.0 L MCHC RDW 15.6 H MCV MCH Lymph % (Auto) 10.7 L Holt % (Auto) 8.3 H Holt # 1.2 H Eos # Lymph # (Auto) Holt # (Auto) Eos # (Auto) Seg Neutrophils % 78.7 H Seg Neuts % (Manual) Baso # (Auto) Lymphocytes % (Manual) Monocytes % (Manual) Eosinophils % (Manual) Basophils % (Manual) Seg Neutrophils # 11.7 H Seg Neutrophils # Man Lymphocytes # (Manual) Monocytes # (Manual) Eosinophils # (Manual) Nucleated RBC % Basophils # (Manual) PT INR APTT Heparin Anti-Xa Level ABG pH POC ABG pO2 ABG pO2 ABG HCO3 ABG O2 Saturation ABG Base Excess POC ABG pCO2 ABG Hemoglobin ABG Oxyhemoglobin ABG Sodium ABG Chloride ABG Glucose Oxyhemoglobin Sodium 148 H Potassium 5.1 H Chloride 107.6 H Carbon Dioxide BUN 27 H Creatinine 0.7 L Glucose 155 H POC Glucose 157 H Lactic Acid Calcium Phosphorus Magnesium AST ALT Lactate Dehydrogenase Total Bilirubin Direct Bilirubin CK-MB (CK-2) C-Reactive Protein NT-Pro-B Natriuret Pep Total Protein Albumin Arterial Blood Glucose Urine WBC (Auto) Urine Creatinine Digoxin 12/07/19 12/07/19 12/07/19 00:13 05:34 11:33 WBC RBC Hgb Hct MCHC RDW MCV MCH Lymph % (Auto) Holt % (Auto) Holt # Eos # Lymph # (Auto) Holt # (Auto) Eos # (Auto) Seg Neutrophils % Seg Neuts % (Manual) Baso # (Auto) Lymphocytes % (Manual) Monocytes % (Manual) Eosinophils % (Manual) Basophils % (Manual) Seg Neutrophils # Seg Neutrophils # Man Lymphocytes # (Manual) Monocytes # (Manual) Eosinophils # (Manual) Nucleated RBC % Basophils # (Manual) PT INR APTT Heparin Anti-Xa Level ABG pH POC ABG pO2 ABG pO2 ABG HCO3 ABG O2 Saturation ABG Base Excess POC ABG pCO2 ABG Hemoglobin ABG Oxyhemoglobin ABG Sodium ABG Chloride ABG Glucose Oxyhemoglobin Sodium Potassium Chloride Carbon Dioxide BUN Creatinine Glucose POC Glucose 142 H 111 H 169 H Lactic Acid Calcium Phosphorus Magnesium AST ALT Lactate Dehydrogenase Total Bilirubin Direct Bilirubin CK-MB (CK-2) C-Reactive Protein NT-Pro-B Natriuret Pep Total Protein Albumin Arterial Blood Glucose Urine WBC (Auto) Urine Creatinine Digoxin 12/07/19 12/07/19 12/07/19 12:41 13:25 18:19 WBC 12.4 H RBC 3.53 L Hgb 10.2 L Hct 32.1 L MCHC RDW 15.3 H MCV MCH Lymph % (Auto) 10.6 L Holt % (Auto) 7.8 H Holt # 1.0 H Eos # Lymph # (Auto) Holt # (Auto) Eos # (Auto) Seg Neutrophils % 77.6 H Seg Neuts % (Manual) Baso # (Auto) Lymphocytes % (Manual) Monocytes % (Manual) Eosinophils % (Manual) Basophils % (Manual) Seg Neutrophils # 9.6 H Seg Neutrophils # Man Lymphocytes # (Manual) Monocytes # (Manual) Eosinophils # (Manual) Nucleated RBC % Basophils # (Manual) PT INR APTT Heparin Anti-Xa Level ABG pH POC ABG pO2 ABG pO2 ABG HCO3 ABG O2 Saturation ABG Base Excess POC ABG pCO2 ABG Hemoglobin ABG Oxyhemoglobin ABG Sodium ABG Chloride ABG Glucose Oxyhemoglobin Sodium 149 H Potassium Chloride 108.4 H Carbon Dioxide BUN 26 H Creatinine 0.6 L Glucose 149 H POC Glucose 164 H Lactic Acid Calcium Phosphorus Magnesium 2.60 H AST 121 H ALT 145 H Lactate Dehydrogenase Total Bilirubin Direct Bilirubin CK-MB (CK-2) C-Reactive Protein NT-Pro-B Natriuret Pep Total Protein Albumin 2.6 L Arterial Blood Glucose Urine WBC (Auto) Urine Creatinine Digoxin 12/07/19 12/08/19 12/08/19 22:25 00:02 03:55 WBC 13.3 H RBC 3.40 L Hgb 9.7 L Hct 30.8 L MCHC 31 L RDW 15.5 H MCV MCH Lymph % (Auto) Holt % (Auto) 8.1 H Holt # 1.1 H Eos # Lymph # (Auto) Holt # (Auto) Eos # (Auto) Seg Neutrophils % 73.0 H Seg Neuts % (Manual) Baso # (Auto) Lymphocytes % (Manual) Monocytes % (Manual) Eosinophils % (Manual) Basophils % (Manual) Seg Neutrophils # 9.7 H Seg Neutrophils # Man Lymphocytes # (Manual) Monocytes # (Manual) Eosinophils # (Manual) Nucleated RBC % Basophils # (Manual) PT INR APTT Heparin Anti-Xa Level 0.12 L ABG pH POC ABG pO2 ABG pO2 ABG HCO3 ABG O2 Saturation ABG Base Excess POC ABG pCO2 ABG Hemoglobin ABG Oxyhemoglobin ABG Sodium ABG Chloride ABG Glucose Oxyhemoglobin Sodium Potassium Chloride Carbon Dioxide BUN Creatinine Glucose POC Glucose 151 H Lactic Acid Calcium Phosphorus Magnesium AST ALT Lactate Dehydrogenase Total Bilirubin Direct Bilirubin CK-MB (CK-2) C-Reactive Protein NT-Pro-B Natriuret Pep Total Protein Albumin Arterial Blood Glucose Urine WBC (Auto) Urine Creatinine Digoxin 12/08/19 12/08/19 12/08/19 03:55 05:21 06:01 WBC RBC Hgb Hct MCHC RDW MCV MCH Lymph % (Auto) Holt % (Auto) Holt # Eos # Lymph # (Auto) Holt # (Auto) Eos # (Auto) Seg Neutrophils % Seg Neuts % (Manual) Baso # (Auto) Lymphocytes % (Manual) Monocytes % (Manual) Eosinophils % (Manual) Basophils % (Manual) Seg Neutrophils # Seg Neutrophils # Man Lymphocytes # (Manual) Monocytes # (Manual) Eosinophils # (Manual) Nucleated RBC % Basophils # (Manual) PT INR APTT Heparin Anti-Xa Level 0.20 L ABG pH POC ABG pO2 ABG pO2 ABG HCO3 ABG O2 Saturation ABG Base Excess POC ABG pCO2 ABG Hemoglobin ABG Oxyhemoglobin ABG Sodium ABG Chloride ABG Glucose Oxyhemoglobin Sodium 149 H Potassium Chloride 108.0 H Carbon Dioxide BUN 28 H Creatinine 0.6 L Glucose 144 H POC Glucose 143 H Lactic Acid Calcium Phosphorus Magnesium AST 98 H ALT 145 H Lactate Dehydrogenase Total Bilirubin Direct Bilirubin CK-MB (CK-2) C-Reactive Protein NT-Pro-B Natriuret Pep Total Protein 6.0 L Albumin 2.4 L Arterial Blood Glucose Urine WBC (Auto) Urine Creatinine Digoxin 12/08/19 12/08/19 12/08/19 12:08 18:11 23:53 WBC RBC Hgb Hct MCHC RDW MCV MCH Lymph % (Auto) Holt % (Auto) Holt # Eos # Lymph # (Auto) Holt # (Auto) Eos # (Auto) Seg Neutrophils % Seg Neuts % (Manual) Baso # (Auto) Lymphocytes % (Manual) Monocytes % (Manual) Eosinophils % (Manual) Basophils % (Manual) Seg Neutrophils # Seg Neutrophils # Man Lymphocytes # (Manual) Monocytes # (Manual) Eosinophils # (Manual) Nucleated RBC % Basophils # (Manual) PT INR APTT Heparin Anti-Xa Level ABG pH POC ABG pO2 ABG pO2 ABG HCO3 ABG O2 Saturation ABG Base Excess POC ABG pCO2 ABG Hemoglobin ABG Oxyhemoglobin ABG Sodium ABG Chloride ABG Glucose Oxyhemoglobin Sodium Potassium Chloride Carbon Dioxide BUN Creatinine Glucose POC Glucose 172 H 122 H 162 H Lactic Acid Calcium Phosphorus Magnesium AST ALT Lactate Dehydrogenase Total Bilirubin Direct Bilirubin CK-MB (CK-2) C-Reactive Protein NT-Pro-B Natriuret Pep Total Protein Albumin Arterial Blood Glucose Urine WBC (Auto) Urine Creatinine Digoxin 12/09/19 12/09/19 12/09/19 04:03 04:03 05:53 WBC RBC Hgb 9.1 L Hct 28.9 L MCHC RDW MCV MCH Lymph % (Auto) Holt % (Auto) Holt # Eos # Lymph # (Auto) Holt # (Auto) Eos # (Auto) Seg Neutrophils % Seg Neuts % (Manual) Baso # (Auto) Lymphocytes % (Manual) Monocytes % (Manual) Eosinophils % (Manual) Basophils % (Manual) Seg Neutrophils # Seg Neutrophils # Man Lymphocytes # (Manual) Monocytes # (Manual) Eosinophils # (Manual) Nucleated RBC % Basophils # (Manual) PT INR APTT Heparin Anti-Xa Level 0.15 L ABG pH POC ABG pO2 ABG pO2 ABG HCO3 ABG O2 Saturation ABG Base Excess POC ABG pCO2 ABG Hemoglobin ABG Oxyhemoglobin ABG Sodium ABG Chloride ABG Glucose Oxyhemoglobin Sodium Potassium Chloride Carbon Dioxide BUN Creatinine Glucose POC Glucose 124 H Lactic Acid Calcium Phosphorus Magnesium AST ALT Lactate Dehydrogenase Total Bilirubin Direct Bilirubin CK-MB (CK-2) C-Reactive Protein NT-Pro-B Natriuret Pep Total Protein Albumin Arterial Blood Glucose Urine WBC (Auto) Urine Creatinine Digoxin 12/09/19 12/09/19 12/10/19 09:43 12:41 00:13 WBC RBC Hgb Hct MCHC RDW MCV MCH Lymph % (Auto) Holt % (Auto) Holt # Eos # Lymph # (Auto) Holt # (Auto) Eos # (Auto) Seg Neutrophils % Seg Neuts % (Manual) Baso # (Auto) Lymphocytes % (Manual) Monocytes % (Manual) Eosinophils % (Manual) Basophils % (Manual) Seg Neutrophils # Seg Neutrophils # Man Lymphocytes # (Manual) Monocytes # (Manual) Eosinophils # (Manual) Nucleated RBC % Basophils # (Manual) PT INR APTT Heparin Anti-Xa Level ABG pH POC ABG pO2 ABG pO2 ABG HCO3 ABG O2 Saturation ABG Base Excess POC ABG pCO2 ABG Hemoglobin ABG Oxyhemoglobin ABG Sodium ABG Chloride ABG Glucose Oxyhemoglobin Sodium Potassium Chloride Carbon Dioxide BUN 25 H Creatinine 0.6 L Glucose 131 H POC Glucose 109 H 120 H Lactic Acid Calcium Phosphorus Magnesium AST ALT Lactate Dehydrogenase Total Bilirubin Direct Bilirubin CK-MB (CK-2) C-Reactive Protein NT-Pro-B Natriuret Pep Total Protein Albumin Arterial Blood Glucose Urine WBC (Auto) Urine Creatinine Digoxin 12/10/19 12/10/19 12/10/19 04:14 04:14 12:00 WBC 13.3 H RBC 3.34 L Hgb 9.6 L Hct 30.4 L MCHC RDW 15.4 H MCV MCH Lymph % (Auto) Holt % (Auto) Holt # Eos # Lymph # (Auto) Holt # (Auto) Eos # (Auto) Seg Neutrophils % Seg Neuts % (Manual) 75.0 H Baso # (Auto) Lymphocytes % (Manual) 13.0 L Monocytes % (Manual) 8.0 H Eosinophils % (Manual) Basophils % (Manual) 2.0 H Seg Neutrophils # Seg Neutrophils # Man 10.0 H Lymphocytes # (Manual) Monocytes # (Manual) 1.1 H Eosinophils # (Manual) Nucleated RBC % Basophils # (Manual) 0.3 H PT INR APTT Heparin Anti-Xa Level ABG pH POC ABG pO2 ABG pO2 ABG HCO3 ABG O2 Saturation ABG Base Excess POC ABG pCO2 ABG Hemoglobin ABG Oxyhemoglobin ABG Sodium ABG Chloride ABG Glucose Oxyhemoglobin Sodium 147 H Potassium Chloride 108.3 H Carbon Dioxide BUN 21 H Creatinine 0.6 L Glucose 104 H POC Glucose 133 H Lactic Acid Calcium Phosphorus Magnesium AST ALT Lactate Dehydrogenase Total Bilirubin Direct Bilirubin CK-MB (CK-2) C-Reactive Protein NT-Pro-B Natriuret Pep Total Protein Albumin Arterial Blood Glucose Urine WBC (Auto) Urine Creatinine Digoxin 12/10/19 12/10/19 12/11/19 18:44 21:20 00:08 WBC 14.9 H RBC 3.36 L Hgb 9.6 L Hct 30.5 L MCHC RDW 15.4 H MCV MCH Lymph % (Auto) Holt % (Auto) Holt # Eos # Lymph # (Auto) Holt # (Auto) Eos # (Auto) Seg Neutrophils % Seg Neuts % (Manual) Baso # (Auto) Lymphocytes % (Manual) Monocytes % (Manual) Eosinophils % (Manual) Basophils % (Manual) Seg Neutrophils # Seg Neutrophils # Man Lymphocytes # (Manual) Monocytes # (Manual) Eosinophils # (Manual) Nucleated RBC % Basophils # (Manual) PT INR APTT Heparin Anti-Xa Level ABG pH POC ABG pO2 ABG pO2 ABG HCO3 ABG O2 Saturation ABG Base Excess POC ABG pCO2 ABG Hemoglobin ABG Oxyhemoglobin ABG Sodium ABG Chloride ABG Glucose Oxyhemoglobin Sodium Potassium Chloride Carbon Dioxide BUN Creatinine Glucose POC Glucose 119 H 134 H Lactic Acid Calcium Phosphorus Magnesium AST ALT Lactate Dehydrogenase Total Bilirubin Direct Bilirubin CK-MB (CK-2) C-Reactive Protein NT-Pro-B Natriuret Pep Total Protein Albumin Arterial Blood Glucose Urine WBC (Auto) Urine Creatinine Digoxin 12/11/19 12/11/19 12/11/19 03:54 07:28 08:36 WBC 11.9 H RBC 3.25 L Hgb 9.6 L Hct 29.2 L MCHC RDW 15.7 H MCV MCH Lymph % (Auto) Holt % (Auto) Holt # Eos # Lymph # (Auto) Holt # (Auto) Eos # (Auto) Seg Neutrophils % Seg Neuts % (Manual) Baso # (Auto) Lymphocytes % (Manual) Monocytes % (Manual) Eosinophils % (Manual) Basophils % (Manual) Seg Neutrophils # Seg Neutrophils # Man Lymphocytes # (Manual) Monocytes # (Manual) Eosinophils # (Manual) Nucleated RBC % Basophils # (Manual) PT INR APTT Heparin Anti-Xa Level 0.10 L 0.16 L ABG pH POC ABG pO2 ABG pO2 ABG HCO3 ABG O2 Saturation ABG Base Excess POC ABG pCO2 ABG Hemoglobin ABG Oxyhemoglobin ABG Sodium ABG Chloride ABG Glucose Oxyhemoglobin Sodium Potassium Chloride Carbon Dioxide BUN Creatinine Glucose POC Glucose Lactic Acid Calcium Phosphorus Magnesium AST ALT Lactate Dehydrogenase Total Bilirubin Direct Bilirubin CK-MB (CK-2) C-Reactive Protein NT-Pro-B Natriuret Pep Total Protein Albumin Arterial Blood Glucose Urine WBC (Auto) Urine Creatinine Digoxin 12/11/19 12/11/19 12/11/19 08:36 11:45 17:15 WBC RBC Hgb Hct MCHC RDW MCV MCH Lymph % (Auto) Holt % (Auto) Holt # Eos # Lymph # (Auto) Holt # (Auto) Eos # (Auto) Seg Neutrophils % Seg Neuts % (Manual) Baso # (Auto) Lymphocytes % (Manual) Monocytes % (Manual) Eosinophils % (Manual) Basophils % (Manual) Seg Neutrophils # Seg Neutrophils # Man Lymphocytes # (Manual) Monocytes # (Manual) Eosinophils # (Manual) Nucleated RBC % Basophils # (Manual) PT INR APTT Heparin Anti-Xa Level ABG pH POC ABG pO2 ABG pO2 ABG HCO3 ABG O2 Saturation ABG Base Excess POC ABG pCO2 ABG Hemoglobin ABG Oxyhemoglobin ABG Sodium ABG Chloride ABG Glucose Oxyhemoglobin Sodium Potassium Chloride Carbon Dioxide BUN Creatinine 0.5 L Glucose 128 H POC Glucose 136 H 109 H Lactic Acid Calcium Phosphorus Magnesium AST ALT Lactate Dehydrogenase Total Bilirubin Direct Bilirubin CK-MB (CK-2) C-Reactive Protein NT-Pro-B Natriuret Pep Total Protein Albumin Arterial Blood Glucose Urine WBC (Auto) Urine Creatinine Digoxin 12/12/19 12/12/19 12/12/19 00:03 05:53 05:53 WBC RBC Hgb 8.8 L Hct 27.6 L MCHC RDW MCV MCH Lymph % (Auto) Holt % (Auto) Holt # Eos # Lymph # (Auto) Holt # (Auto) Eos # (Auto) Seg Neutrophils % Seg Neuts % (Manual) Baso # (Auto) Lymphocytes % (Manual) Monocytes % (Manual) Eosinophils % (Manual) Basophils % (Manual) Seg Neutrophils # Seg Neutrophils # Man Lymphocytes # (Manual) Monocytes # (Manual) Eosinophils # (Manual) Nucleated RBC % Basophils # (Manual) PT INR APTT Heparin Anti-Xa Level 0.22 L ABG pH POC ABG pO2 ABG pO2 ABG HCO3 ABG O2 Saturation ABG Base Excess POC ABG pCO2 ABG Hemoglobin ABG Oxyhemoglobin ABG Sodium ABG Chloride ABG Glucose Oxyhemoglobin Sodium Potassium Chloride Carbon Dioxide BUN Creatinine Glucose POC Glucose 116 H Lactic Acid Calcium Phosphorus Magnesium AST ALT Lactate Dehydrogenase Total Bilirubin Direct Bilirubin CK-MB (CK-2) C-Reactive Protein NT-Pro-B Natriuret Pep Total Protein Albumin Arterial Blood Glucose Urine WBC (Auto) Urine Creatinine Digoxin 12/12/19 12/12/19 12/12/19 09:38 12:18 17:44 WBC RBC Hgb Hct MCHC RDW MCV MCH Lymph % (Auto) Holt % (Auto) Holt # Eos # Lymph # (Auto) Holt # (Auto) Eos # (Auto) Seg Neutrophils % Seg Neuts % (Manual) Baso # (Auto) Lymphocytes % (Manual) Monocytes % (Manual) Eosinophils % (Manual) Basophils % (Manual) Seg Neutrophils # Seg Neutrophils # Man Lymphocytes # (Manual) Monocytes # (Manual) Eosinophils # (Manual) Nucleated RBC % Basophils # (Manual) PT INR APTT Heparin Anti-Xa Level ABG pH POC ABG pO2 ABG pO2 ABG HCO3 ABG O2 Saturation ABG Base Excess POC ABG pCO2 ABG Hemoglobin ABG Oxyhemoglobin ABG Sodium ABG Chloride ABG Glucose Oxyhemoglobin Sodium Potassium Chloride Carbon Dioxide BUN Creatinine Glucose POC Glucose 115 H 146 H 146 H Lactic Acid Calcium Phosphorus Magnesium AST ALT Lactate Dehydrogenase Total Bilirubin Direct Bilirubin CK-MB (CK-2) C-Reactive Protein NT-Pro-B Natriuret Pep Total Protein Albumin Arterial Blood Glucose Urine WBC (Auto) Urine Creatinine Digoxin 12/12/19 12/13/19 12/13/19 23:33 05:32 05:32 WBC 13.1 H RBC 3.27 L Hgb 9.5 L Hct 29.3 L MCHC RDW 15.6 H MCV MCH Lymph % (Auto) Holt % (Auto) Holt # Eos # Lymph # (Auto) Holt # (Auto) Eos # (Auto) Seg Neutrophils % Seg Neuts % (Manual) 74.0 H Baso # (Auto) Lymphocytes % (Manual) 8.0 L Monocytes % (Manual) 9.0 H Eosinophils % (Manual) 5.0 H Basophils % (Manual) Seg Neutrophils # Seg Neutrophils # Man 9.7 H Lymphocytes # (Manual) 1.0 L Monocytes # (Manual) 1.2 H Eosinophils # (Manual) 0.7 H Nucleated RBC % Basophils # (Manual) PT INR APTT Heparin Anti-Xa Level 0.20 L ABG pH POC ABG pO2 ABG pO2 ABG HCO3 ABG O2 Saturation ABG Base Excess POC ABG pCO2 ABG Hemoglobin ABG Oxyhemoglobin ABG Sodium ABG Chloride ABG Glucose Oxyhemoglobin Sodium Potassium Chloride Carbon Dioxide BUN Creatinine Glucose POC Glucose 126 H Lactic Acid Calcium Phosphorus Magnesium AST ALT Lactate Dehydrogenase Total Bilirubin Direct Bilirubin CK-MB (CK-2) C-Reactive Protein NT-Pro-B Natriuret Pep Total Protein Albumin Arterial Blood Glucose Urine WBC (Auto) Urine Creatinine Digoxin 12/13/19 12/13/19 12/13/19 05:32 05:46 11:57 WBC RBC Hgb Hct MCHC RDW MCV MCH Lymph % (Auto) Holt % (Auto) Holt # Eos # Lymph # (Auto) Holt # (Auto) Eos # (Auto) Seg Neutrophils % Seg Neuts % (Manual) Baso # (Auto) Lymphocytes % (Manual) Monocytes % (Manual) Eosinophils % (Manual) Basophils % (Manual) Seg Neutrophils # Seg Neutrophils # Man Lymphocytes # (Manual) Monocytes # (Manual) Eosinophils # (Manual) Nucleated RBC % Basophils # (Manual) PT INR APTT Heparin Anti-Xa Level ABG pH POC ABG pO2 ABG pO2 ABG HCO3 ABG O2 Saturation ABG Base Excess POC ABG pCO2 ABG Hemoglobin ABG Oxyhemoglobin ABG Sodium ABG Chloride ABG Glucose Oxyhemoglobin Sodium Potassium Chloride Carbon Dioxide 31 H BUN Creatinine 0.6 L Glucose 114 H POC Glucose 118 H 133 H Lactic Acid Calcium Phosphorus Magnesium AST ALT Lactate Dehydrogenase Total Bilirubin Direct Bilirubin CK-MB (CK-2) C-Reactive Protein NT-Pro-B Natriuret Pep Total Protein Albumin Arterial Blood Glucose Urine WBC (Auto) Urine Creatinine Digoxin 12/13/19 12/13/19 12/14/19 17:44 23:46 05:32 WBC RBC Hgb Hct MCHC RDW MCV MCH Lymph % (Auto) Holt % (Auto) Holt # Eos # Lymph # (Auto) Holt # (Auto) Eos # (Auto) Seg Neutrophils % Seg Neuts % (Manual) Baso # (Auto) Lymphocytes % (Manual) Monocytes % (Manual) Eosinophils % (Manual) Basophils % (Manual) Seg Neutrophils # Seg Neutrophils # Man Lymphocytes # (Manual) Monocytes # (Manual) Eosinophils # (Manual) Nucleated RBC % Basophils # (Manual) PT INR APTT Heparin Anti-Xa Level ABG pH POC ABG pO2 ABG pO2 ABG HCO3 ABG O2 Saturation ABG Base Excess POC ABG pCO2 ABG Hemoglobin ABG Oxyhemoglobin ABG Sodium ABG Chloride ABG Glucose Oxyhemoglobin Sodium Potassium Chloride Carbon Dioxide BUN Creatinine Glucose POC Glucose 161 H 126 H 139 H Lactic Acid Calcium Phosphorus Magnesium AST ALT Lactate Dehydrogenase Total Bilirubin Direct Bilirubin CK-MB (CK-2) C-Reactive Protein NT-Pro-B Natriuret Pep Total Protein Albumin Arterial Blood Glucose Urine WBC (Auto) Urine Creatinine Digoxin 12/14/19 12/14/19 12/14/19 06:03 06:03 09:37 WBC RBC Hgb 9.6 L Hct 30.4 L MCHC RDW MCV MCH Lymph % (Auto) Holt % (Auto) Holt # Eos # Lymph # (Auto) Holt # (Auto) Eos # (Auto) Seg Neutrophils % Seg Neuts % (Manual) Baso # (Auto) Lymphocytes % (Manual) Monocytes % (Manual) Eosinophils % (Manual) Basophils % (Manual) Seg Neutrophils # Seg Neutrophils # Man Lymphocytes # (Manual) Monocytes # (Manual) Eosinophils # (Manual) Nucleated RBC % Basophils # (Manual) PT INR APTT Heparin Anti-Xa Level 0.24 L ABG pH POC ABG pO2 ABG pO2 ABG HCO3 ABG O2 Saturation ABG Base Excess POC ABG pCO2 ABG Hemoglobin ABG Oxyhemoglobin ABG Sodium ABG Chloride ABG Glucose Oxyhemoglobin Sodium Potassium Chloride Carbon Dioxide BUN Creatinine 0.6 L Glucose 162 H POC Glucose Lactic Acid Calcium Phosphorus Magnesium AST 71 H ALT 118 H Lactate Dehydrogenase Total Bilirubin Direct Bilirubin CK-MB (CK-2) C-Reactive Protein NT-Pro-B Natriuret Pep Total Protein 6.2 L Albumin 2.3 L Arterial Blood Glucose Urine WBC (Auto) Urine Creatinine Digoxin 12/14/19 12/14/19 12/15/19 12:06 18:18 00:19 WBC RBC Hgb Hct MCHC RDW MCV MCH Lymph % (Auto) Holt % (Auto) Holt # Eos # Lymph # (Auto) Holt # (Auto) Eos # (Auto) Seg Neutrophils % Seg Neuts % (Manual) Baso # (Auto) Lymphocytes % (Manual) Monocytes % (Manual) Eosinophils % (Manual) Basophils % (Manual) Seg Neutrophils # Seg Neutrophils # Man Lymphocytes # (Manual) Monocytes # (Manual) Eosinophils # (Manual) Nucleated RBC % Basophils # (Manual) PT INR APTT Heparin Anti-Xa Level ABG pH POC ABG pO2 ABG pO2 ABG HCO3 ABG O2 Saturation ABG Base Excess POC ABG pCO2 ABG Hemoglobin ABG Oxyhemoglobin ABG Sodium ABG Chloride ABG Glucose Oxyhemoglobin Sodium Potassium Chloride Carbon Dioxide BUN Creatinine Glucose POC Glucose 147 H 166 H 123 H Lactic Acid Calcium Phosphorus Magnesium AST ALT Lactate Dehydrogenase Total Bilirubin Direct Bilirubin CK-MB (CK-2) C-Reactive Protein NT-Pro-B Natriuret Pep Total Protein Albumin Arterial Blood Glucose Urine WBC (Auto) Urine Creatinine Digoxin 12/15/19 12/15/1920 05:28 05:29 05:29 WBC 14.9 H RBC 3.19 L Hgb 9.1 L Hct 28.7 L MCHC RDW 16.0 H MCV MCH Lymph % (Auto) Holt % (Auto) Holt # Eos # Lymph # (Auto) Holt # (Auto) Eos # (Auto) Seg Neutrophils % Seg Neuts % (Manual) Baso # (Auto) Lymphocytes % (Manual) Monocytes % (Manual) Eosinophils % (Manual) Basophils % (Manual) Seg Neutrophils # Seg Neutrophils # Man Lymphocytes # (Manual) Monocytes # (Manual) Eosinophils # (Manual) Nucleated RBC % Basophils # (Manual) PT INR APTT Heparin Anti-Xa Level 0.19 L ABG pH POC ABG pO2 ABG pO2 ABG HCO3 ABG O2 Saturation ABG Base Excess POC ABG pCO2 ABG Hemoglobin ABG Oxyhemoglobin ABG Sodium ABG Chloride ABG Glucose Oxyhemoglobin Sodium Potassium Chloride Carbon Dioxide BUN Creatinine 0.6 L Glucose 110 H POC Glucose Lactic Acid Calcium Phosphorus Magnesium AST ALT Lactate Dehydrogenase Total Bilirubin Direct Bilirubin CK-MB (CK-2) C-Reactive Protein NT-Pro-B Natriuret Pep Total Protein Albumin Arterial Blood Glucose Urine WBC (Auto) Urine Creatinine Digoxin 12/15/19 12/15/19 12/15/19 05:53 11:50 17:26 WBC RBC Hgb Hct MCHC RDW MCV MCH Lymph % (Auto) Holt % (Auto) Holt # Eos # Lymph # (Auto) Holt # (Auto) Eos # (Auto) Seg Neutrophils % Seg Neuts % (Manual) Baso # (Auto) Lymphocytes % (Manual) Monocytes % (Manual) Eosinophils % (Manual) Basophils % (Manual) Seg Neutrophils # Seg Neutrophils # Man Lymphocytes # (Manual) Monocytes # (Manual) Eosinophils # (Manual) Nucleated RBC % Basophils # (Manual) PT INR APTT Heparin Anti-Xa Level ABG pH POC ABG pO2 ABG pO2 ABG HCO3 ABG O2 Saturation ABG Base Excess POC ABG pCO2 ABG Hemoglobin ABG Oxyhemoglobin ABG Sodium ABG Chloride ABG Glucose Oxyhemoglobin Sodium Potassium Chloride Carbon Dioxide BUN Creatinine Glucose POC Glucose 119 H 132 H 128 H Lactic Acid Calcium Phosphorus Magnesium AST ALT Lactate Dehydrogenase Total Bilirubin Direct Bilirubin CK-MB (CK-2) C-Reactive Protein NT-Pro-B Natriuret Pep Total Protein Albumin Arterial Blood Glucose Urine WBC (Auto) Urine Creatinine Digoxin 12/15/19 12/16/19 12/16/19 23:11 05:30 05:46 WBC RBC Hgb 8.8 L Hct 27.9 L MCHC RDW MCV MCH Lymph % (Auto) Holt % (Auto) Holt # Eos # Lymph # (Auto) Holt # (Auto) Eos # (Auto) Seg Neutrophils % Seg Neuts % (Manual) Baso # (Auto) Lymphocytes % (Manual) Monocytes % (Manual) Eosinophils % (Manual) Basophils % (Manual) Seg Neutrophils # Seg Neutrophils # Man Lymphocytes # (Manual) Monocytes # (Manual) Eosinophils # (Manual) Nucleated RBC % Basophils # (Manual) PT INR APTT Heparin Anti-Xa Level ABG pH POC ABG pO2 ABG pO2 ABG HCO3 ABG O2 Saturation ABG Base Excess POC ABG pCO2 ABG Hemoglobin ABG Oxyhemoglobin ABG Sodium ABG Chloride ABG Glucose Oxyhemoglobin Sodium Potassium Chloride Carbon Dioxide BUN Creatinine Glucose POC Glucose 150 H 134 H Lactic Acid Calcium Phosphorus Magnesium AST ALT Lactate Dehydrogenase Total Bilirubin Direct Bilirubin CK-MB (CK-2) C-Reactive Protein NT-Pro-B Natriuret Pep Total Protein Albumin Arterial Blood Glucose Urine WBC (Auto) Urine Creatinine Digoxin 12/16/19 12/16/19 12/16/19 05:46 05:46 11:44 WBC RBC Hgb Hct MCHC RDW MCV MCH Lymph % (Auto) Holt % (Auto) Holt # Eos # Lymph # (Auto) Holt # (Auto) Eos # (Auto) Seg Neutrophils % Seg Neuts % (Manual) Baso # (Auto) Lymphocytes % (Manual) Monocytes % (Manual) Eosinophils % (Manual) Basophils % (Manual) Seg Neutrophils # Seg Neutrophils # Man Lymphocytes # (Manual) Monocytes # (Manual) Eosinophils # (Manual) Nucleated RBC % Basophils # (Manual) PT INR APTT Heparin Anti-Xa Level 0.20 L ABG pH POC ABG pO2 ABG pO2 ABG HCO3 ABG O2 Saturation ABG Base Excess POC ABG pCO2 ABG Hemoglobin ABG Oxyhemoglobin ABG Sodium ABG Chloride ABG Glucose Oxyhemoglobin Sodium Potassium Chloride Carbon Dioxide 31 H BUN Creatinine 0.5 L Glucose 147 H POC Glucose 164 H Lactic Acid Calcium Phosphorus Magnesium AST ALT Lactate Dehydrogenase Total Bilirubin Direct Bilirubin CK-MB (CK-2) C-Reactive Protein NT-Pro-B Natriuret Pep Total Protein Albumin Arterial Blood Glucose Urine WBC (Auto) Urine Creatinine Digoxin 12/16/19 12/16/19 12/17/19 17:17 23:49 05:30 WBC 13.9 H RBC 3.27 L Hgb 9.4 L Hct 29.2 L MCHC RDW 16.0 H MCV MCH Lymph % (Auto) Holt % (Auto) 8.8 H Holt # Eos # Lymph # (Auto) Holt # (Auto) 1.2 H Eos # (Auto) 0.5 H Seg Neutrophils % 70.5 H Seg Neuts % (Manual) Baso # (Auto) 0.2 H Lymphocytes % (Manual) Monocytes % (Manual) Eosinophils % (Manual) Basophils % (Manual) Seg Neutrophils # 9.8 H Seg Neutrophils # Man Lymphocytes # (Manual) Monocytes # (Manual) Eosinophils # (Manual) Nucleated RBC % Basophils # (Manual) PT INR APTT Heparin Anti-Xa Level ABG pH POC ABG pO2 ABG pO2 ABG HCO3 ABG O2 Saturation ABG Base Excess POC ABG pCO2 ABG Hemoglobin ABG Oxyhemoglobin ABG Sodium ABG Chloride ABG Glucose Oxyhemoglobin Sodium Potassium Chloride Carbon Dioxide BUN Creatinine Glucose POC Glucose 162 H 144 H Lactic Acid Calcium Phosphorus Magnesium AST ALT Lactate Dehydrogenase Total Bilirubin Direct Bilirubin CK-MB (CK-2) C-Reactive Protein NT-Pro-B Natriuret Pep Total Protein Albumin Arterial Blood Glucose Urine WBC (Auto) Urine Creatinine Digoxin 12/17/19 12/17/19 12/17/19 05:30 06:06 11:50 WBC RBC Hgb Hct MCHC RDW MCV MCH Lymph % (Auto) Holt % (Auto) Holt # Eos # Lymph # (Auto) Holt # (Auto) Eos # (Auto) Seg Neutrophils % Seg Neuts % (Manual) Baso # (Auto) Lymphocytes % (Manual) Monocytes % (Manual) Eosinophils % (Manual) Basophils % (Manual) Seg Neutrophils # Seg Neutrophils # Man Lymphocytes # (Manual) Monocytes # (Manual) Eosinophils # (Manual) Nucleated RBC % Basophils # (Manual) PT INR APTT Heparin Anti-Xa Level ABG pH POC ABG pO2 ABG pO2 ABG HCO3 ABG O2 Saturation ABG Base Excess POC ABG pCO2 ABG Hemoglobin ABG Oxyhemoglobin ABG Sodium ABG Chloride ABG Glucose Oxyhemoglobin Sodium Potassium Chloride 97.4 L Carbon Dioxide 32 H BUN Creatinine 0.5 L Glucose 135 H POC Glucose 151 H 140 H Lactic Acid Calcium Phosphorus Magnesium AST ALT Lactate Dehydrogenase Total Bilirubin Direct Bilirubin CK-MB (CK-2) C-Reactive Protein NT-Pro-B Natriuret Pep Total Protein Albumin Arterial Blood Glucose Urine WBC (Auto) Urine Creatinine Digoxin 12/17/19 12/17/19 12/18/19 17:50 23:46 05:17 WBC RBC Hgb 8.8 L Hct 28.0 L MCHC RDW MCV MCH Lymph % (Auto) Holt % (Auto) Holt # Eos # Lymph # (Auto) Holt # (Auto) Eos # (Auto) Seg Neutrophils % Seg Neuts % (Manual) Baso # (Auto) Lymphocytes % (Manual) Monocytes % (Manual) Eosinophils % (Manual) Basophils % (Manual) Seg Neutrophils # Seg Neutrophils # Man Lymphocytes # (Manual) Monocytes # (Manual) Eosinophils # (Manual) Nucleated RBC % Basophils # (Manual) PT INR APTT Heparin Anti-Xa Level ABG pH POC ABG pO2 ABG pO2 ABG HCO3 ABG O2 Saturation ABG Base Excess POC ABG pCO2 ABG Hemoglobin ABG Oxyhemoglobin ABG Sodium ABG Chloride ABG Glucose Oxyhemoglobin Sodium Potassium Chloride Carbon Dioxide BUN Creatinine Glucose POC Glucose 158 H 150 H Lactic Acid Calcium Phosphorus Magnesium AST ALT Lactate Dehydrogenase Total Bilirubin Direct Bilirubin CK-MB (CK-2) C-Reactive Protein NT-Pro-B Natriuret Pep Total Protein Albumin Arterial Blood Glucose Urine WBC (Auto) Urine Creatinine Digoxin 12/18/19 12/18/19 12/18/19 05:17 05:49 11:12 WBC RBC Hgb Hct MCHC RDW MCV MCH Lymph % (Auto) Holt % (Auto) Holt # Eos # Lymph # (Auto) Holt # (Auto) Eos # (Auto) Seg Neutrophils % Seg Neuts % (Manual) Baso # (Auto) Lymphocytes % (Manual) Monocytes % (Manual) Eosinophils % (Manual) Basophils % (Manual) Seg Neutrophils # Seg Neutrophils # Man Lymphocytes # (Manual) Monocytes # (Manual) Eosinophils # (Manual) Nucleated RBC % Basophils # (Manual) PT INR APTT Heparin Anti-Xa Level 0.16 L ABG pH POC ABG pO2 ABG pO2 ABG HCO3 ABG O2 Saturation ABG Base Excess POC ABG pCO2 ABG Hemoglobin ABG Oxyhemoglobin ABG Sodium ABG Chloride ABG Glucose Oxyhemoglobin Sodium Potassium Chloride Carbon Dioxide BUN Creatinine Glucose POC Glucose 127 H 191 H Lactic Acid Calcium Phosphorus Magnesium AST ALT Lactate Dehydrogenase Total Bilirubin Direct Bilirubin CK-MB (CK-2) C-Reactive Protein NT-Pro-B Natriuret Pep Total Protein Albumin Arterial Blood Glucose Urine WBC (Auto) Urine Creatinine Digoxin 12/18/19 12/18/19 12/19/19 17:03 20:16 00:08 WBC RBC Hgb Hct MCHC RDW MCV MCH Lymph % (Auto) Holt % (Auto) Holt # Eos # Lymph # (Auto) Holt # (Auto) Eos # (Auto) Seg Neutrophils % Seg Neuts % (Manual) Baso # (Auto) Lymphocytes % (Manual) Monocytes % (Manual) Eosinophils % (Manual) Basophils % (Manual) Seg Neutrophils # Seg Neutrophils # Man Lymphocytes # (Manual) Monocytes # (Manual) Eosinophils # (Manual) Nucleated RBC % Basophils # (Manual) PT INR APTT Heparin Anti-Xa Level ABG pH POC ABG pO2 ABG pO2 ABG HCO3 ABG O2 Saturation ABG Base Excess POC ABG pCO2 ABG Hemoglobin ABG Oxyhemoglobin ABG Sodium ABG Chloride ABG Glucose Oxyhemoglobin Sodium Potassium Chloride Carbon Dioxide BUN Creatinine Glucose POC Glucose 133 H 128 H 129 H Lactic Acid Calcium Phosphorus Magnesium AST ALT Lactate Dehydrogenase Total Bilirubin Direct Bilirubin CK-MB (CK-2) C-Reactive Protein NT-Pro-B Natriuret Pep Total Protein Albumin Arterial Blood Glucose Urine WBC (Auto) Urine Creatinine Digoxin 12/19/19 12/19/19 12/19/19 04:45 04:45 05:35 WBC RBC Hgb Hct MCHC RDW MCV MCH Lymph % (Auto) Holt % (Auto) Holt # Eos # Lymph # (Auto) Holt # (Auto) Eos # (Auto) Seg Neutrophils % Seg Neuts % (Manual) Baso # (Auto) Lymphocytes % (Manual) Monocytes % (Manual) Eosinophils % (Manual) Basophils % (Manual) Seg Neutrophils # Seg Neutrophils # Man Lymphocytes # (Manual) Monocytes # (Manual) Eosinophils # (Manual) Nucleated RBC % Basophils # (Manual) PT INR APTT Heparin Anti-Xa Level 0.17 L ABG pH POC ABG pO2 ABG pO2 ABG HCO3 ABG O2 Saturation ABG Base Excess POC ABG pCO2 ABG Hemoglobin ABG Oxyhemoglobin ABG Sodium ABG Chloride ABG Glucose Oxyhemoglobin Sodium Potassium Chloride Carbon Dioxide BUN Creatinine Glucose POC Glucose 120 H Lactic Acid Calcium Phosphorus Magnesium AST ALT Lactate Dehydrogenase 228 H Total Bilirubin Direct Bilirubin CK-MB (CK-2) C-Reactive Protein NT-Pro-B Natriuret Pep Total Protein Albumin Arterial Blood Glucose Urine WBC (Auto) Urine Creatinine Digoxin 12/19/19 12/19/19 12/19/19 09:20 11:32 11:32 WBC 14.6 H RBC 3.08 L Hgb 9.0 L Hct 26.8 L MCHC RDW 15.9 H MCV MCH Lymph % (Auto) Holt % (Auto) Holt # Eos # Lymph # (Auto) Holt # (Auto) Eos # (Auto) Seg Neutrophils % Seg Neuts % (Manual) 82.0 H Baso # (Auto) Lymphocytes % (Manual) 10.0 L Monocytes % (Manual) Eosinophils % (Manual) Basophils % (Manual) Seg Neutrophils # Seg Neutrophils # Man 12.0 H Lymphocytes # (Manual) Monocytes # (Manual) 0.9 H Eosinophils # (Manual) Nucleated RBC % 1.0 H Basophils # (Manual) PT INR APTT Heparin Anti-Xa Level ABG pH 7.451 H POC ABG pO2 ABG pO2 62.6 L ABG HCO3 33.2 H ABG O2 Saturation 93.8 L ABG Base Excess 8.3 H POC ABG pCO2 ABG Hemoglobin 8.3 L ABG Oxyhemoglobin ABG Sodium ABG Chloride ABG Glucose Oxyhemoglobin 91.9 L Sodium Potassium Chloride 95.0 L Carbon Dioxide 33 H BUN 22 H Creatinine 0.6 L Glucose 150 H POC Glucose Lactic Acid Calcium Phosphorus Magnesium AST ALT Lactate Dehydrogenase Total Bilirubin Direct Bilirubin CK-MB (CK-2) C-Reactive Protein NT-Pro-B Natriuret Pep Total Protein 6.2 L Albumin 2.4 L Arterial Blood Glucose Urine WBC (Auto) Urine Creatinine Digoxin 12/19/19 12/19/19 12/20/19 11:56 18:17 00:09 WBC RBC Hgb Hct MCHC RDW MCV MCH Lymph % (Auto) Holt % (Auto) Holt # Eos # Lymph # (Auto) Holt # (Auto) Eos # (Auto) Seg Neutrophils % Seg Neuts % (Manual) Baso # (Auto) Lymphocytes % (Manual) Monocytes % (Manual) Eosinophils % (Manual) Basophils % (Manual) Seg Neutrophils # Seg Neutrophils # Man Lymphocytes # (Manual) Monocytes # (Manual) Eosinophils # (Manual) Nucleated RBC % Basophils # (Manual) PT INR APTT Heparin Anti-Xa Level ABG pH POC ABG pO2 ABG pO2 ABG HCO3 ABG O2 Saturation ABG Base Excess POC ABG pCO2 ABG Hemoglobin ABG Oxyhemoglobin ABG Sodium ABG Chloride ABG Glucose Oxyhemoglobin Sodium Potassium Chloride Carbon Dioxide BUN Creatinine Glucose POC Glucose 156 H 156 H 155 H Lactic Acid Calcium Phosphorus Magnesium AST ALT Lactate Dehydrogenase Total Bilirubin Direct Bilirubin CK-MB (CK-2) C-Reactive Protein NT-Pro-B Natriuret Pep Total Protein Albumin Arterial Blood Glucose Urine WBC (Auto) Urine Creatinine Digoxin 12/20/19 12/20/19 12/20/19 05:26 06:02 18:17 WBC RBC Hgb Hct MCHC RDW MCV MCH Lymph % (Auto) Holt % (Auto) Holt # Eos # Lymph # (Auto) Holt # (Auto) Eos # (Auto) Seg Neutrophils % Seg Neuts % (Manual) Baso # (Auto) Lymphocytes % (Manual) Monocytes % (Manual) Eosinophils % (Manual) Basophils % (Manual) Seg Neutrophils # Seg Neutrophils # Man Lymphocytes # (Manual) Monocytes # (Manual) Eosinophils # (Manual) Nucleated RBC % Basophils # (Manual) PT INR APTT Heparin Anti-Xa Level 0.19 L ABG pH POC ABG pO2 ABG pO2 ABG HCO3 ABG O2 Saturation ABG Base Excess POC ABG pCO2 ABG Hemoglobin ABG Oxyhemoglobin ABG Sodium ABG Chloride ABG Glucose Oxyhemoglobin Sodium Potassium Chloride Carbon Dioxide BUN Creatinine Glucose POC Glucose 137 H 128 H Lactic Acid Calcium Phosphorus Magnesium AST ALT Lactate Dehydrogenase Total Bilirubin Direct Bilirubin CK-MB (CK-2) C-Reactive Protein NT-Pro-B Natriuret Pep Total Protein Albumin Arterial Blood Glucose Urine WBC (Auto) Urine Creatinine Digoxin 12/20/19 12/21/19 12/21/19 23:34 05:31 05:31 WBC 12.7 H RBC 3.09 L Hgb 8.9 L Hct 27.4 L MCHC RDW 15.8 H MCV MCH Lymph % (Auto) 12.1 L Holt % (Auto) 7.8 H Holt # Eos # Lymph # (Auto) Holt # (Auto) 1.0 H Eos # (Auto) Seg Neutrophils % 77.1 H Seg Neuts % (Manual) Baso # (Auto) Lymphocytes % (Manual) Monocytes % (Manual) Eosinophils % (Manual) Basophils % (Manual) Seg Neutrophils # 9.8 H Seg Neutrophils # Man Lymphocytes # (Manual) Monocytes # (Manual) Eosinophils # (Manual) Nucleated RBC % Basophils # (Manual) PT INR APTT Heparin Anti-Xa Level ABG pH POC ABG pO2 ABG pO2 ABG HCO3 ABG O2 Saturation ABG Base Excess POC ABG pCO2 ABG Hemoglobin ABG Oxyhemoglobin ABG Sodium ABG Chloride ABG Glucose Oxyhemoglobin Sodium Potassium Chloride 96.9 L Carbon Dioxide 37 H BUN 27 H Creatinine 0.7 L Glucose 140 H POC Glucose 145 H Lactic Acid Calcium Phosphorus Magnesium AST ALT Lactate Dehydrogenase Total Bilirubin Direct Bilirubin CK-MB (CK-2) C-Reactive Protein NT-Pro-B Natriuret Pep Total Protein Albumin Arterial Blood Glucose Urine WBC (Auto) Urine Creatinine Digoxin 12/21/19 12/21/19 12/21/19 05:38 10:13 11:51 WBC RBC Hgb Hct MCHC RDW MCV MCH Lymph % (Auto) Holt % (Auto) Holt # Eos # Lymph # (Auto) Holt # (Auto) Eos # (Auto) Seg Neutrophils % Seg Neuts % (Manual) Baso # (Auto) Lymphocytes % (Manual) Monocytes % (Manual) Eosinophils % (Manual) Basophils % (Manual) Seg Neutrophils # Seg Neutrophils # Man Lymphocytes # (Manual) Monocytes # (Manual) Eosinophils # (Manual) Nucleated RBC % Basophils # (Manual) PT INR APTT 23.9 L Heparin Anti-Xa Level < 0.10 L ABG pH POC ABG pO2 ABG pO2 ABG HCO3 ABG O2 Saturation ABG Base Excess POC ABG pCO2 ABG Hemoglobin ABG Oxyhemoglobin ABG Sodium ABG Chloride ABG Glucose Oxyhemoglobin Sodium Potassium Chloride Carbon Dioxide BUN Creatinine Glucose POC Glucose 151 H 145 H Lactic Acid Calcium Phosphorus Magnesium AST ALT Lactate Dehydrogenase Total Bilirubin Direct Bilirubin CK-MB (CK-2) C-Reactive Protein NT-Pro-B Natriuret Pep Total Protein Albumin Arterial Blood Glucose Urine WBC (Auto) Urine Creatinine Digoxin 12/21/19 12/22/19 12/22/19 17:16 00:01 01:33 WBC RBC Hgb Hct MCHC RDW MCV MCH Lymph % (Auto) Holt % (Auto) Holt # Eos # Lymph # (Auto) Holt # (Auto) Eos # (Auto) Seg Neutrophils % Seg Neuts % (Manual) Baso # (Auto) Lymphocytes % (Manual) Monocytes % (Manual) Eosinophils % (Manual) Basophils % (Manual) Seg Neutrophils # Seg Neutrophils # Man Lymphocytes # (Manual) Monocytes # (Manual) Eosinophils # (Manual) Nucleated RBC % Basophils # (Manual) PT INR APTT Heparin Anti-Xa Level 0.10 L ABG pH POC ABG pO2 ABG pO2 ABG HCO3 ABG O2 Saturation ABG Base Excess POC ABG pCO2 ABG Hemoglobin ABG Oxyhemoglobin ABG Sodium ABG Chloride ABG Glucose Oxyhemoglobin Sodium Potassium Chloride Carbon Dioxide BUN Creatinine Glucose POC Glucose 167 H 179 H Lactic Acid Calcium Phosphorus Magnesium AST ALT Lactate Dehydrogenase Total Bilirubin Direct Bilirubin CK-MB (CK-2) C-Reactive Protein NT-Pro-B Natriuret Pep Total Protein Albumin Arterial Blood Glucose Urine WBC (Auto) Urine Creatinine Digoxin 12/22/19 12/22/19 12/22/19 03:22 05:10 05:10 WBC 13.8 H RBC 3.20 L Hgb 8.9 L Hct 28.1 L MCHC RDW 15.9 H MCV MCH Lymph % (Auto) Holt % (Auto) Holt # Eos # Lymph # (Auto) Holt # (Auto) Eos # (Auto) Seg Neutrophils % Seg Neuts % (Manual) Baso # (Auto) Lymphocytes % (Manual) Monocytes % (Manual) Eosinophils % (Manual) Basophils % (Manual) Seg Neutrophils # Seg Neutrophils # Man Lymphocytes # (Manual) Monocytes # (Manual) Eosinophils # (Manual) Nucleated RBC % Basophils # (Manual) PT INR APTT Heparin Anti-Xa Level ABG pH POC ABG pO2 52.3 L ABG pO2 ABG HCO3 ABG O2 Saturation ABG Base Excess POC ABG pCO2 52.9 H ABG Hemoglobin 10.7 L ABG Oxyhemoglobin 84 L ABG Sodium ABG Chloride ABG Glucose Oxyhemoglobin Sodium Potassium Chloride 96.6 L Carbon Dioxide BUN 25 H Creatinine 0.7 L Glucose 129 H POC Glucose Lactic Acid Calcium Phosphorus Magnesium AST ALT Lactate Dehydrogenase Total Bilirubin Direct Bilirubin CK-MB (CK-2) C-Reactive Protein NT-Pro-B Natriuret Pep Total Protein Albumin Arterial Blood Glucose Urine WBC (Auto) Urine Creatinine Digoxin 12/22/19 12/22/1912/21/20 05:18 12:32 12:43 WBC RBC Hgb Hct MCHC RDW MCV MCH Lymph % (Auto) Holt % (Auto) Holt # Eos # Lymph # (Auto) Holt # (Auto) Eos # (Auto) Seg Neutrophils % Seg Neuts % (Manual) Baso # (Auto) Lymphocytes % (Manual) Monocytes % (Manual) Eosinophils % (Manual) Basophils % (Manual) Seg Neutrophils # Seg Neutrophils # Man Lymphocytes # (Manual) Monocytes # (Manual) Eosinophils # (Manual) Nucleated RBC % Basophils # (Manual) PT INR APTT Heparin Anti-Xa Level 0.18 L ABG pH POC ABG pO2 ABG pO2 ABG HCO3 ABG O2 Saturation ABG Base Excess POC ABG pCO2 ABG Hemoglobin ABG Oxyhemoglobin ABG Sodium ABG Chloride ABG Glucose Oxyhemoglobin Sodium Potassium Chloride Carbon Dioxide BUN Creatinine Glucose POC Glucose 131 H 208 H Lactic Acid Calcium Phosphorus Magnesium AST ALT Lactate Dehydrogenase Total Bilirubin Direct Bilirubin CK-MB (CK-2) C-Reactive Protein NT-Pro-B Natriuret Pep Total Protein Albumin Arterial Blood Glucose Urine WBC (Auto) Urine Creatinine Digoxin 12/22/19 12/22/19 12/23/19 17:44 23:20 03:51 WBC 15.2 H RBC 3.43 L Hgb 9.6 L Hct 30.3 L MCHC RDW 15.9 H MCV MCH Lymph % (Auto) Holt % (Auto) Holt # Eos # Lymph # (Auto) Holt # (Auto) Eos # (Auto) Seg Neutrophils % Seg Neuts % (Manual) Baso # (Auto) Lymphocytes % (Manual) Monocytes % (Manual) Eosinophils % (Manual) Basophils % (Manual) Seg Neutrophils # Seg Neutrophils # Man Lymphocytes # (Manual) Monocytes # (Manual) Eosinophils # (Manual) Nucleated RBC % Basophils # (Manual) PT INR APTT Heparin Anti-Xa Level ABG pH POC ABG pO2 ABG pO2 ABG HCO3 ABG O2 Saturation ABG Base Excess POC ABG pCO2 ABG Hemoglobin ABG Oxyhemoglobin ABG Sodium ABG Chloride ABG Glucose Oxyhemoglobin Sodium Potassium Chloride Carbon Dioxide BUN Creatinine Glucose POC Glucose 209 H 119 H Lactic Acid Calcium Phosphorus Magnesium AST ALT Lactate Dehydrogenase Total Bilirubin Direct Bilirubin CK-MB (CK-2) C-Reactive Protein NT-Pro-B Natriuret Pep Total Protein Albumin Arterial Blood Glucose Urine WBC (Auto) Urine Creatinine Digoxin 12/23/19 12/23/19 12/23/19 03:51 05:31 12:09 WBC RBC Hgb Hct MCHC RDW MCV MCH Lymph % (Auto) Holt % (Auto) Holt # Eos # Lymph # (Auto) Holt # (Auto) Eos # (Auto) Seg Neutrophils % Seg Neuts % (Manual) Baso # (Auto) Lymphocytes % (Manual) Monocytes % (Manual) Eosinophils % (Manual) Basophils % (Manual) Seg Neutrophils # Seg Neutrophils # Man Lymphocytes # (Manual) Monocytes # (Manual) Eosinophils # (Manual) Nucleated RBC % Basophils # (Manual) PT INR APTT Heparin Anti-Xa Level ABG pH POC ABG pO2 ABG pO2 ABG HCO3 ABG O2 Saturation ABG Base Excess POC ABG pCO2 ABG Hemoglobin ABG Oxyhemoglobin ABG Sodium ABG Chloride ABG Glucose Oxyhemoglobin Sodium Potassium Chloride 97.2 L Carbon Dioxide 31 H BUN 23 H Creatinine 0.6 L Glucose 153 H POC Glucose 149 H 144 H Lactic Acid Calcium Phosphorus Magnesium AST ALT Lactate Dehydrogenase Total Bilirubin Direct Bilirubin CK-MB (CK-2) C-Reactive Protein NT-Pro-B Natriuret Pep Total Protein Albumin Arterial Blood Glucose Urine WBC (Auto) Urine Creatinine Digoxin 12/23/19 12/23/19 12/23/19 15:30 17:49 23:31 WBC RBC Hgb Hct MCHC RDW MCV MCH Lymph % (Auto) Holt % (Auto) Holt # Eos # Lymph # (Auto) Holt # (Auto) Eos # (Auto) Seg Neutrophils % Seg Neuts % (Manual) Baso # (Auto) Lymphocytes % (Manual) Monocytes % (Manual) Eosinophils % (Manual) Basophils % (Manual) Seg Neutrophils # Seg Neutrophils # Man Lymphocytes # (Manual) Monocytes # (Manual) Eosinophils # (Manual) Nucleated RBC % Basophils # (Manual) PT INR APTT Heparin Anti-Xa Level 0.21 L ABG pH POC ABG pO2 ABG pO2 ABG HCO3 ABG O2 Saturation ABG Base Excess POC ABG pCO2 ABG Hemoglobin ABG Oxyhemoglobin ABG Sodium ABG Chloride ABG Glucose Oxyhemoglobin Sodium Potassium Chloride Carbon Dioxide BUN Creatinine Glucose POC Glucose 192 H 151 H Lactic Acid Calcium Phosphorus Magnesium AST ALT Lactate Dehydrogenase Total Bilirubin Direct Bilirubin CK-MB (CK-2) C-Reactive Protein NT-Pro-B Natriuret Pep Total Protein Albumin Arterial Blood Glucose Urine WBC (Auto) Urine Creatinine Digoxin 12/24/19 12/24/19 12/24/19 05:34 12:13 16:50 WBC RBC Hgb Hct MCHC RDW MCV MCH Lymph % (Auto) Holt % (Auto) Holt # Eos # Lymph # (Auto) Holt # (Auto) Eos # (Auto) Seg Neutrophils % Seg Neuts % (Manual) Baso # (Auto) Lymphocytes % (Manual) Monocytes % (Manual) Eosinophils % (Manual) Basophils % (Manual) Seg Neutrophils # Seg Neutrophils # Man Lymphocytes # (Manual) Monocytes # (Manual) Eosinophils # (Manual) Nucleated RBC % Basophils # (Manual) PT INR APTT Heparin Anti-Xa Level 0.16 L ABG pH POC ABG pO2 ABG pO2 ABG HCO3 ABG O2 Saturation ABG Base Excess POC ABG pCO2 ABG Hemoglobin ABG Oxyhemoglobin ABG Sodium ABG Chloride ABG Glucose Oxyhemoglobin Sodium Potassium Chloride Carbon Dioxide BUN Creatinine Glucose POC Glucose 145 H 124 H Lactic Acid Calcium Phosphorus Magnesium AST ALT Lactate Dehydrogenase Total Bilirubin Direct Bilirubin CK-MB (CK-2) C-Reactive Protein NT-Pro-B Natriuret Pep Total Protein Albumin Arterial Blood Glucose Urine WBC (Auto) Urine Creatinine Digoxin 12/24/19 12/25/19 12/25/19 17:53 00:14 04:18 WBC 12.9 H RBC 3.30 L Hgb 9.1 L Hct 28.8 L MCHC RDW 16.4 H MCV MCH Lymph % (Auto) Holt % (Auto) 7.8 H Holt # Eos # Lymph # (Auto) Holt # (Auto) 1.0 H Eos # (Auto) Seg Neutrophils % 75.5 H Seg Neuts % (Manual) Baso # (Auto) Lymphocytes % (Manual) Monocytes % (Manual) Eosinophils % (Manual) Basophils % (Manual) Seg Neutrophils # 9.7 H Seg Neutrophils # Man Lymphocytes # (Manual) Monocytes # (Manual) Eosinophils # (Manual) Nucleated RBC % Basophils # (Manual) PT INR APTT Heparin Anti-Xa Level ABG pH POC ABG pO2 ABG pO2 ABG HCO3 ABG O2 Saturation ABG Base Excess POC ABG pCO2 ABG Hemoglobin ABG Oxyhemoglobin ABG Sodium ABG Chloride ABG Glucose Oxyhemoglobin Sodium Potassium Chloride Carbon Dioxide BUN Creatinine Glucose POC Glucose 164 H 148 H Lactic Acid Calcium Phosphorus Magnesium AST ALT Lactate Dehydrogenase Total Bilirubin Direct Bilirubin CK-MB (CK-2) C-Reactive Protein NT-Pro-B Natriuret Pep Total Protein Albumin Arterial Blood Glucose Urine WBC (Auto) Urine Creatinine Digoxin 12/25/19 12/25/19 12/25/19 04:18 05:38 11:44 WBC RBC Hgb Hct MCHC RDW MCV MCH Lymph % (Auto) Holt % (Auto) Holt # Eos # Lymph # (Auto) Holt # (Auto) Eos # (Auto) Seg Neutrophils % Seg Neuts % (Manual) Baso # (Auto) Lymphocytes % (Manual) Monocytes % (Manual) Eosinophils % (Manual) Basophils % (Manual) Seg Neutrophils # Seg Neutrophils # Man Lymphocytes # (Manual) Monocytes # (Manual) Eosinophils # (Manual) Nucleated RBC % Basophils # (Manual) PT INR APTT Heparin Anti-Xa Level ABG pH POC ABG pO2 ABG pO2 ABG HCO3 ABG O2 Saturation ABG Base Excess POC ABG pCO2 ABG Hemoglobin ABG Oxyhemoglobin ABG Sodium ABG Chloride ABG Glucose Oxyhemoglobin Sodium Potassium Chloride Carbon Dioxide 33 H BUN 27 H Creatinine 0.6 L Glucose 132 H POC Glucose 152 H 166 H Lactic Acid Calcium Phosphorus Magnesium AST ALT Lactate Dehydrogenase Total Bilirubin Direct Bilirubin CK-MB (CK-2) C-Reactive Protein NT-Pro-B Natriuret Pep Total Protein Albumin Arterial Blood Glucose Urine WBC (Auto) Urine Creatinine Digoxin 12/25/19 12/26/19 12/26/19 18:29 00:17 00:18 WBC RBC Hgb Hct MCHC RDW MCV MCH Lymph % (Auto) Holt % (Auto) Holt # Eos # Lymph # (Auto) Holt # (Auto) Eos # (Auto) Seg Neutrophils % Seg Neuts % (Manual) Baso # (Auto) Lymphocytes % (Manual) Monocytes % (Manual) Eosinophils % (Manual) Basophils % (Manual) Seg Neutrophils # Seg Neutrophils # Man Lymphocytes # (Manual) Monocytes # (Manual) Eosinophils # (Manual) Nucleated RBC % Basophils # (Manual) PT INR APTT Heparin Anti-Xa Level ABG pH POC ABG pO2 ABG pO2 ABG HCO3 ABG O2 Saturation ABG Base Excess POC ABG pCO2 ABG Hemoglobin ABG Oxyhemoglobin ABG Sodium ABG Chloride ABG Glucose Oxyhemoglobin Sodium Potassium Chloride 97.8 L Carbon Dioxide BUN 25 H Creatinine 0.6 L Glucose 140 H POC Glucose 194 H 151 H Lactic Acid Calcium Phosphorus Magnesium AST ALT Lactate Dehydrogenase Total Bilirubin Direct Bilirubin CK-MB (CK-2) C-Reactive Protein NT-Pro-B Natriuret Pep Total Protein Albumin Arterial Blood Glucose Urine WBC (Auto) Urine Creatinine Digoxin 12/26/19 12/26/19 12/26/19 05:36 11:41 17:50 WBC RBC Hgb Hct MCHC RDW MCV MCH Lymph % (Auto) Holt % (Auto) Holt # Eos # Lymph # (Auto) Holt # (Auto) Eos # (Auto) Seg Neutrophils % Seg Neuts % (Manual) Baso # (Auto) Lymphocytes % (Manual) Monocytes % (Manual) Eosinophils % (Manual) Basophils % (Manual) Seg Neutrophils # Seg Neutrophils # Man Lymphocytes # (Manual) Monocytes # (Manual) Eosinophils # (Manual) Nucleated RBC % Basophils # (Manual) PT INR APTT Heparin Anti-Xa Level ABG pH POC ABG pO2 ABG pO2 ABG HCO3 ABG O2 Saturation ABG Base Excess POC ABG pCO2 ABG Hemoglobin ABG Oxyhemoglobin ABG Sodium ABG Chloride ABG Glucose Oxyhemoglobin Sodium Potassium Chloride Carbon Dioxide BUN Creatinine Glucose POC Glucose 156 H 148 H 139 H Lactic Acid Calcium Phosphorus Magnesium AST ALT Lactate Dehydrogenase Total Bilirubin Direct Bilirubin CK-MB (CK-2) C-Reactive Protein NT-Pro-B Natriuret Pep Total Protein Albumin Arterial Blood Glucose Urine WBC (Auto) Urine Creatinine Digoxin 12/26/19 12/27/19 12/27/19 23:19 05:34 12:02 WBC RBC Hgb Hct MCHC RDW MCV MCH Lymph % (Auto) Holt % (Auto) Holt # Eos # Lymph # (Auto) Holt # (Auto) Eos # (Auto) Seg Neutrophils % Seg Neuts % (Manual) Baso # (Auto) Lymphocytes % (Manual) Monocytes % (Manual) Eosinophils % (Manual) Basophils % (Manual) Seg Neutrophils # Seg Neutrophils # Man Lymphocytes # (Manual) Monocytes # (Manual) Eosinophils # (Manual) Nucleated RBC % Basophils # (Manual) PT INR APTT Heparin Anti-Xa Level ABG pH POC ABG pO2 ABG pO2 ABG HCO3 ABG O2 Saturation ABG Base Excess POC ABG pCO2 ABG Hemoglobin ABG Oxyhemoglobin ABG Sodium ABG Chloride ABG Glucose Oxyhemoglobin Sodium Potassium Chloride Carbon Dioxide BUN Creatinine Glucose POC Glucose 161 H 145 H 157 H Lactic Acid Calcium Phosphorus Magnesium AST ALT Lactate Dehydrogenase Total Bilirubin Direct Bilirubin CK-MB (CK-2) C-Reactive Protein NT-Pro-B Natriuret Pep Total Protein Albumin Arterial Blood Glucose Urine WBC (Auto) Urine Creatinine Digoxin 12/27/19 12/27/19 12/27/19 17:35 20:11 23:00 WBC RBC Hgb Hct MCHC RDW MCV MCH Lymph % (Auto) Holt % (Auto) Holt # Eos # Lymph # (Auto) Holt # (Auto) Eos # (Auto) Seg Neutrophils % Seg Neuts % (Manual) Baso # (Auto) Lymphocytes % (Manual) Monocytes % (Manual) Eosinophils % (Manual) Basophils % (Manual) Seg Neutrophils # Seg Neutrophils # Man Lymphocytes # (Manual) Monocytes # (Manual) Eosinophils # (Manual) Nucleated RBC % Basophils # (Manual) PT INR APTT Heparin Anti-Xa Level 0.19 L ABG pH POC ABG pO2 ABG pO2 ABG HCO3 ABG O2 Saturation ABG Base Excess POC ABG pCO2 ABG Hemoglobin ABG Oxyhemoglobin ABG Sodium ABG Chloride ABG Glucose Oxyhemoglobin Sodium Potassium Chloride Carbon Dioxide BUN Creatinine Glucose POC Glucose 158 H 155 H Lactic Acid Calcium Phosphorus Magnesium AST ALT Lactate Dehydrogenase Total Bilirubin Direct Bilirubin CK-MB (CK-2) C-Reactive Protein NT-Pro-B Natriuret Pep Total Protein Albumin Arterial Blood Glucose Urine WBC (Auto) Urine Creatinine Digoxin 12/27/19 12/28/19 12/28/19 23:45 02:41 02:41 WBC 13.0 H RBC 3.48 L Hgb 9.5 L Hct 30.6 L MCHC 31 L RDW 16.6 H MCV MCH 27 L Lymph % (Auto) 13.0 L Holt % (Auto) 8.0 H Holt # Eos # Lymph # (Auto) Holt # (Auto) 1.0 H Eos # (Auto) Seg Neutrophils % 76.3 H Seg Neuts % (Manual) Baso # (Auto) Lymphocytes % (Manual) Monocytes % (Manual) Eosinophils % (Manual) Basophils % (Manual) Seg Neutrophils # 9.9 H Seg Neutrophils # Man Lymphocytes # (Manual) Monocytes # (Manual) Eosinophils # (Manual) Nucleated RBC % Basophils # (Manual) PT INR APTT Heparin Anti-Xa Level ABG pH POC ABG pO2 ABG pO2 ABG HCO3 ABG O2 Saturation ABG Base Excess POC ABG pCO2 ABG Hemoglobin ABG Oxyhemoglobin ABG Sodium ABG Chloride ABG Glucose Oxyhemoglobin Sodium Potassium Chloride Carbon Dioxide BUN 22 H Creatinine 0.6 L Glucose 101 H POC Glucose 130 H Lactic Acid Calcium Phosphorus Magnesium AST ALT Lactate Dehydrogenase Total Bilirubin Direct Bilirubin CK-MB (CK-2) C-Reactive Protein NT-Pro-B Natriuret Pep Total Protein Albumin Arterial Blood Glucose Urine WBC (Auto) Urine Creatinine Digoxin 12/28/19 12/28/19 12/28/19 06:00 12:34 18:13 WBC RBC Hgb Hct MCHC RDW MCV MCH Lymph % (Auto) Holt % (Auto) Holt # Eos # Lymph # (Auto) Holt # (Auto) Eos # (Auto) Seg Neutrophils % Seg Neuts % (Manual) Baso # (Auto) Lymphocytes % (Manual) Monocytes % (Manual) Eosinophils % (Manual) Basophils % (Manual) Seg Neutrophils # Seg Neutrophils # Man Lymphocytes # (Manual) Monocytes # (Manual) Eosinophils # (Manual) Nucleated RBC % Basophils # (Manual) PT INR APTT Heparin Anti-Xa Level ABG pH POC ABG pO2 ABG pO2 ABG HCO3 ABG O2 Saturation ABG Base Excess POC ABG pCO2 ABG Hemoglobin ABG Oxyhemoglobin ABG Sodium ABG Chloride ABG Glucose Oxyhemoglobin Sodium Potassium Chloride Carbon Dioxide BUN Creatinine Glucose POC Glucose 150 H 161 H 128 H Lactic Acid Calcium Phosphorus Magnesium AST ALT Lactate Dehydrogenase Total Bilirubin Direct Bilirubin CK-MB (CK-2) C-Reactive Protein NT-Pro-B Natriuret Pep Total Protein Albumin Arterial Blood Glucose Urine WBC (Auto) Urine Creatinine Digoxin 12/28/19 12/29/19 12/29/19 23:36 05:21 11:40 WBC RBC Hgb Hct MCHC RDW MCV MCH Lymph % (Auto) Holt % (Auto) Holt # Eos # Lymph # (Auto) Holt # (Auto) Eos # (Auto) Seg Neutrophils % Seg Neuts % (Manual) Baso # (Auto) Lymphocytes % (Manual) Monocytes % (Manual) Eosinophils % (Manual) Basophils % (Manual) Seg Neutrophils # Seg Neutrophils # Man Lymphocytes # (Manual) Monocytes # (Manual) Eosinophils # (Manual) Nucleated RBC % Basophils # (Manual) PT INR APTT Heparin Anti-Xa Level ABG pH POC ABG pO2 ABG pO2 ABG HCO3 ABG O2 Saturation ABG Base Excess POC ABG pCO2 ABG Hemoglobin ABG Oxyhemoglobin ABG Sodium ABG Chloride ABG Glucose Oxyhemoglobin Sodium Potassium Chloride Carbon Dioxide BUN Creatinine Glucose POC Glucose 137 H 136 H 166 H Lactic Acid Calcium Phosphorus Magnesium AST ALT Lactate Dehydrogenase Total Bilirubin Direct Bilirubin CK-MB (CK-2) C-Reactive Protein NT-Pro-B Natriuret Pep Total Protein Albumin Arterial Blood Glucose Urine WBC (Auto) Urine Creatinine Digoxin 12/29/19 12/29/19 12/29/19 17:23 19:21 23:38 WBC RBC Hgb Hct MCHC RDW MCV MCH Lymph % (Auto) Holt % (Auto) Holt # Eos # Lymph # (Auto) Holt # (Auto) Eos # (Auto) Seg Neutrophils % Seg Neuts % (Manual) Baso # (Auto) Lymphocytes % (Manual) Monocytes % (Manual) Eosinophils % (Manual) Basophils % (Manual) Seg Neutrophils # Seg Neutrophils # Man Lymphocytes # (Manual) Monocytes # (Manual) Eosinophils # (Manual) Nucleated RBC % Basophils # (Manual) PT INR APTT Heparin Anti-Xa Level 0.20 L ABG pH POC ABG pO2 ABG pO2 ABG HCO3 ABG O2 Saturation ABG Base Excess POC ABG pCO2 ABG Hemoglobin ABG Oxyhemoglobin ABG Sodium ABG Chloride ABG Glucose Oxyhemoglobin Sodium Potassium Chloride Carbon Dioxide BUN Creatinine Glucose POC Glucose 144 H 141 H Lactic Acid Calcium Phosphorus Magnesium AST ALT Lactate Dehydrogenase Total Bilirubin Direct Bilirubin CK-MB (CK-2) C-Reactive Protein NT-Pro-B Natriuret Pep Total Protein Albumin Arterial Blood Glucose Urine WBC (Auto) Urine Creatinine Digoxin 12/30/19 12/30/19 12/30/19 03:58 03:58 04:59 WBC RBC 3.54 L Hgb 9.8 L Hct 30.7 L MCHC RDW 16.8 H MCV MCH Lymph % (Auto) Holt % (Auto) Holt # Eos # Lymph # (Auto) Holt # (Auto) Eos # (Auto) Seg Neutrophils % Seg Neuts % (Manual) Baso # (Auto) Lymphocytes % (Manual) Monocytes % (Manual) Eosinophils % (Manual) Basophils % (Manual) Seg Neutrophils # Seg Neutrophils # Man Lymphocytes # (Manual) Monocytes # (Manual) Eosinophils # (Manual) Nucleated RBC % Basophils # (Manual) PT INR APTT Heparin Anti-Xa Level ABG pH POC ABG pO2 ABG pO2 ABG HCO3 29.8 H ABG O2 Saturation ABG Base Excess 4.8 H POC ABG pCO2 ABG Hemoglobin 11.2 L ABG Oxyhemoglobin ABG Sodium ABG Chloride ABG Glucose Oxyhemoglobin 93.8 L Sodium Potassium Chloride 97.8 L Carbon Dioxide BUN 26 H Creatinine Glucose 168 H POC Glucose Lactic Acid Calcium Phosphorus Magnesium AST ALT Lactate Dehydrogenase Total Bilirubin Direct Bilirubin CK-MB (CK-2) C-Reactive Protein NT-Pro-B Natriuret Pep Total Protein Albumin Arterial Blood Glucose Urine WBC (Auto) Urine Creatinine Digoxin 12/30/19 12/30/19 12/30/19 05:45 11:34 17:28 WBC RBC Hgb Hct MCHC RDW MCV MCH Lymph % (Auto) Holt % (Auto) Holt # Eos # Lymph # (Auto) Holt # (Auto) Eos # (Auto) Seg Neutrophils % Seg Neuts % (Manual) Baso # (Auto) Lymphocytes % (Manual) Monocytes % (Manual) Eosinophils % (Manual) Basophils % (Manual) Seg Neutrophils # Seg Neutrophils # Man Lymphocytes # (Manual) Monocytes # (Manual) Eosinophils # (Manual) Nucleated RBC % Basophils # (Manual) PT INR APTT Heparin Anti-Xa Level ABG pH POC ABG pO2 ABG pO2 ABG HCO3 ABG O2 Saturation ABG Base Excess POC ABG pCO2 ABG Hemoglobin ABG Oxyhemoglobin ABG Sodium ABG Chloride ABG Glucose Oxyhemoglobin Sodium Potassium Chloride Carbon Dioxide BUN Creatinine Glucose POC Glucose 163 H 180 H 150 H Lactic Acid Calcium Phosphorus Magnesium AST ALT Lactate Dehydrogenase Total Bilirubin Direct Bilirubin CK-MB (CK-2) C-Reactive Protein NT-Pro-B Natriuret Pep Total Protein Albumin Arterial Blood Glucose Urine WBC (Auto) Urine Creatinine Digoxin 12/30/19 12/31/19 12/31/19 23:43 04:55 05:07 WBC RBC Hgb Hct MCHC RDW MCV MCH Lymph % (Auto) Holt % (Auto) Holt # Eos # Lymph # (Auto) Holt # (Auto) Eos # (Auto) Seg Neutrophils % Seg Neuts % (Manual) Baso # (Auto) Lymphocytes % (Manual) Monocytes % (Manual) Eosinophils % (Manual) Basophils % (Manual) Seg Neutrophils # Seg Neutrophils # Man Lymphocytes # (Manual) Monocytes # (Manual) Eosinophils # (Manual) Nucleated RBC % Basophils # (Manual) PT INR APTT Heparin Anti-Xa Level ABG pH POC ABG pO2 ABG pO2 ABG HCO3 ABG O2 Saturation ABG Base Excess POC ABG pCO2 ABG Hemoglobin ABG Oxyhemoglobin ABG Sodium ABG Chloride ABG Glucose Oxyhemoglobin Sodium Potassium 5.6 H D Chloride Carbon Dioxide BUN 33 H Creatinine Glucose 131 H POC Glucose 142 H 134 H Lactic Acid Calcium Phosphorus Magnesium AST ALT Lactate Dehydrogenase Total Bilirubin Direct Bilirubin CK-MB (CK-2) C-Reactive Protein NT-Pro-B Natriuret Pep Total Protein Albumin Arterial Blood Glucose Urine WBC (Auto) Urine Creatinine Digoxin 12/31/19 12/31/19 12/31/19 11:30 17:19 17:36 WBC RBC Hgb Hct MCHC RDW MCV MCH Lymph % (Auto) Holt % (Auto) Holt # Eos # Lymph # (Auto) Holt # (Auto) Eos # (Auto) Seg Neutrophils % Seg Neuts % (Manual) Baso # (Auto) Lymphocytes % (Manual) Monocytes % (Manual) Eosinophils % (Manual) Basophils % (Manual) Seg Neutrophils # Seg Neutrophils # Man Lymphocytes # (Manual) Monocytes # (Manual) Eosinophils # (Manual) Nucleated RBC % Basophils # (Manual) PT INR APTT Heparin Anti-Xa Level ABG pH POC ABG pO2 ABG pO2 ABG HCO3 ABG O2 Saturation ABG Base Excess POC ABG pCO2 ABG Hemoglobin ABG Oxyhemoglobin ABG Sodium ABG Chloride ABG Glucose Oxyhemoglobin Sodium Potassium Chloride Carbon Dioxide BUN 35 H Creatinine Glucose 156 H POC Glucose 158 H 181 H Lactic Acid Calcium Phosphorus Magnesium AST ALT Lactate Dehydrogenase Total Bilirubin Direct Bilirubin CK-MB (CK-2) C-Reactive Protein NT-Pro-B Natriuret Pep Total Protein Albumin Arterial Blood Glucose Urine WBC (Auto) Urine Creatinine Digoxin 12/31/19 12/31/19 12/31/19 18:16 19:41 21:53 WBC RBC Hgb Hct MCHC RDW MCV MCH Lymph % (Auto) Holt % (Auto) Holt # Eos # Lymph # (Auto) Holt # (Auto) Eos # (Auto) Seg Neutrophils % Seg Neuts % (Manual) Baso # (Auto) Lymphocytes % (Manual) Monocytes % (Manual) Eosinophils % (Manual) Basophils % (Manual) Seg Neutrophils # Seg Neutrophils # Man Lymphocytes # (Manual) Monocytes # (Manual) Eosinophils # (Manual) Nucleated RBC % Basophils # (Manual) PT INR APTT Heparin Anti-Xa Level 0.20 L ABG pH POC ABG pO2 ABG pO2 ABG HCO3 ABG O2 Saturation ABG Base Excess POC ABG pCO2 ABG Hemoglobin ABG Oxyhemoglobin ABG Sodium ABG Chloride ABG Glucose Oxyhemoglobin Sodium Potassium Chloride Carbon Dioxide BUN 34 H Creatinine Glucose 169 H POC Glucose 141 H Lactic Acid Calcium Phosphorus Magnesium AST ALT Lactate Dehydrogenase Total Bilirubin Direct Bilirubin CK-MB (CK-2) C-Reactive Protein NT-Pro-B Natriuret Pep Total Protein Albumin Arterial Blood Glucose Urine WBC (Auto) Urine Creatinine Digoxin 12/31/19 01/01/20 01/01/20 23:51 05:17 10:40 WBC RBC Hgb Hct MCHC RDW MCV MCH Lymph % (Auto) Holt % (Auto) Holt # Eos # Lymph # (Auto) Holt # (Auto) Eos # (Auto) Seg Neutrophils % Seg Neuts % (Manual) Baso # (Auto) Lymphocytes % (Manual) Monocytes % (Manual) Eosinophils % (Manual) Basophils % (Manual) Seg Neutrophils # Seg Neutrophils # Man Lymphocytes # (Manual) Monocytes # (Manual) Eosinophils # (Manual) Nucleated RBC % Basophils # (Manual) PT INR APTT Heparin Anti-Xa Level ABG pH POC ABG pO2 ABG pO2 ABG HCO3 ABG O2 Saturation ABG Base Excess POC ABG pCO2 ABG Hemoglobin ABG Oxyhemoglobin ABG Sodium ABG Chloride ABG Glucose Oxyhemoglobin Sodium Potassium Chloride Carbon Dioxide BUN 31 H Creatinine 0.7 L Glucose 137 H POC Glucose 131 H 155 H Lactic Acid Calcium Phosphorus Magnesium AST 73 H ALT 97 H Lactate Dehydrogenase Total Bilirubin Direct Bilirubin CK-MB (CK-2) C-Reactive Protein NT-Pro-B Natriuret Pep 3866 H Total Protein Albumin 2.8 L Arterial Blood Glucose Urine WBC (Auto) Urine Creatinine Digoxin 01/01/20 01/01/20 01/01/20 12:26 15:33 17:53 WBC 14.3 H RBC 3.35 L Hgb 9.1 L Hct 28.8 L MCHC RDW 17.0 H MCV MCH 27 L Lymph % (Auto) 7.0 L Holt % (Auto) 7.6 H Holt # Eos # Lymph # (Auto) 1.0 L Holt # (Auto) 1.1 H Eos # (Auto) Seg Neutrophils % 83.3 H Seg Neuts % (Manual) Baso # (Auto) Lymphocytes % (Manual) Monocytes % (Manual) Eosinophils % (Manual) Basophils % (Manual) Seg Neutrophils # 12.0 H Seg Neutrophils # Man Lymphocytes # (Manual) Monocytes # (Manual) Eosinophils # (Manual) Nucleated RBC % Basophils # (Manual) PT INR APTT Heparin Anti-Xa Level ABG pH POC ABG pO2 ABG pO2 ABG HCO3 ABG O2 Saturation ABG Base Excess POC ABG pCO2 ABG Hemoglobin ABG Oxyhemoglobin ABG Sodium ABG Chloride ABG Glucose Oxyhemoglobin Sodium Potassium Chloride Carbon Dioxide BUN Creatinine Glucose POC Glucose 128 H 128 H Lactic Acid Calcium Phosphorus Magnesium AST ALT Lactate Dehydrogenase Total Bilirubin Direct Bilirubin CK-MB (CK-2) C-Reactive Protein NT-Pro-B Natriuret Pep Total Protein Albumin Arterial Blood Glucose Urine WBC (Auto) Urine Creatinine Digoxin 01/01/20 01/02/20 01/02/20 23:04 05:39 07:00 WBC RBC Hgb Hct MCHC RDW MCV MCH Lymph % (Auto) Holt % (Auto) Holt # Eos # Lymph # (Auto) Holt # (Auto) Eos # (Auto) Seg Neutrophils % Seg Neuts % (Manual) Baso # (Auto) Lymphocytes % (Manual) Monocytes % (Manual) Eosinophils % (Manual) Basophils % (Manual) Seg Neutrophils # Seg Neutrophils # Man Lymphocytes # (Manual) Monocytes # (Manual) Eosinophils # (Manual) Nucleated RBC % Basophils # (Manual) PT INR APTT Heparin Anti-Xa Level 0.13 L ABG pH POC ABG pO2 ABG pO2 ABG HCO3 ABG O2 Saturation ABG Base Excess POC ABG pCO2 ABG Hemoglobin ABG Oxyhemoglobin ABG Sodium ABG Chloride ABG Glucose Oxyhemoglobin Sodium Potassium Chloride Carbon Dioxide BUN Creatinine Glucose POC Glucose 120 H 169 H Lactic Acid Calcium Phosphorus Magnesium AST ALT Lactate Dehydrogenase Total Bilirubin Direct Bilirubin CK-MB (CK-2) C-Reactive Protein NT-Pro-B Natriuret Pep Total Protein Albumin Arterial Blood Glucose Urine WBC (Auto) Urine Creatinine Digoxin 01/02/20 01/02/20 01/02/20 12:15 14:06 17:58 WBC RBC Hgb Hct MCHC RDW MCV MCH Lymph % (Auto) Holt % (Auto) Holt # Eos # Lymph # (Auto) Holt # (Auto) Eos # (Auto) Seg Neutrophils % Seg Neuts % (Manual) Baso # (Auto) Lymphocytes % (Manual) Monocytes % (Manual) Eosinophils % (Manual) Basophils % (Manual) Seg Neutrophils # Seg Neutrophils # Man Lymphocytes # (Manual) Monocytes # (Manual) Eosinophils # (Manual) Nucleated RBC % Basophils # (Manual) PT INR APTT Heparin Anti-Xa Level < 0.10 L ABG pH POC ABG pO2 ABG pO2 ABG HCO3 ABG O2 Saturation ABG Base Excess POC ABG pCO2 ABG Hemoglobin ABG Oxyhemoglobin ABG Sodium ABG Chloride ABG Glucose Oxyhemoglobin Sodium Potassium Chloride Carbon Dioxide BUN Creatinine Glucose POC Glucose 190 H 198 H Lactic Acid Calcium Phosphorus Magnesium AST ALT Lactate Dehydrogenase Total Bilirubin Direct Bilirubin CK-MB (CK-2) C-Reactive Protein NT-Pro-B Natriuret Pep Total Protein Albumin Arterial Blood Glucose Urine WBC (Auto) Urine Creatinine Digoxin 01/02/20 01/02/20 01/03/20 21:43 23:33 05:42 WBC RBC Hgb Hct MCHC RDW MCV MCH Lymph % (Auto) Holt % (Auto) Holt # Eos # Lymph # (Auto) Holt # (Auto) Eos # (Auto) Seg Neutrophils % Seg Neuts % (Manual) Baso # (Auto) Lymphocytes % (Manual) Monocytes % (Manual) Eosinophils % (Manual) Basophils % (Manual) Seg Neutrophils # Seg Neutrophils # Man Lymphocytes # (Manual) Monocytes # (Manual) Eosinophils # (Manual) Nucleated RBC % Basophils # (Manual) PT INR APTT Heparin Anti-Xa Level 0.10 L ABG pH POC ABG pO2 ABG pO2 ABG HCO3 ABG O2 Saturation ABG Base Excess POC ABG pCO2 ABG Hemoglobin ABG Oxyhemoglobin ABG Sodium ABG Chloride ABG Glucose Oxyhemoglobin Sodium Potassium Chloride Carbon Dioxide BUN Creatinine Glucose POC Glucose 180 H 163 H Lactic Acid Calcium Phosphorus Magnesium AST ALT Lactate Dehydrogenase Total Bilirubin Direct Bilirubin CK-MB (CK-2) C-Reactive Protein NT-Pro-B Natriuret Pep Total Protein Albumin Arterial Blood Glucose Urine WBC (Auto) Urine Creatinine Digoxin 01/03/20 01/03/20 01/03/20 06:50 07:25 07:45 WBC 12.1 H RBC 3.35 L Hgb 9.0 L Hct 28.9 L MCHC 31 L RDW 16.6 H MCV MCH 27 L Lymph % (Auto) 13.0 L Holt % (Auto) 8.6 H Holt # Eos # Lymph # (Auto) Holt # (Auto) 1.0 H Eos # (Auto) Seg Neutrophils % 75.9 H Seg Neuts % (Manual) Baso # (Auto) Lymphocytes % (Manual) Monocytes % (Manual) Eosinophils % (Manual) Basophils % (Manual) Seg Neutrophils # 9.2 H Seg Neutrophils # Man Lymphocytes # (Manual) Monocytes # (Manual) Eosinophils # (Manual) Nucleated RBC % Basophils # (Manual) PT INR APTT Heparin Anti-Xa Level 0.29 L ABG pH POC ABG pO2 ABG pO2 ABG HCO3 ABG O2 Saturation ABG Base Excess POC ABG pCO2 ABG Hemoglobin ABG Oxyhemoglobin ABG Sodium ABG Chloride ABG Glucose Oxyhemoglobin Sodium Potassium 3.3 L D Chloride Carbon Dioxide 35 H D BUN 23 H Creatinine 0.6 L Glucose 149 H POC Glucose Lactic Acid Calcium Phosphorus Magnesium AST ALT 88 H Lactate Dehydrogenase Total Bilirubin Direct Bilirubin CK-MB (CK-2) C-Reactive Protein NT-Pro-B Natriuret Pep Total Protein 6.2 L Albumin 2.9 L Arterial Blood Glucose Urine WBC (Auto) Urine Creatinine Digoxin 01/03/20 01/03/20 01/03/20 12:05 17:42 18:30 WBC RBC Hgb Hct MCHC RDW MCV MCH Lymph % (Auto) Holt % (Auto) Holt # Eos # Lymph # (Auto) Holt # (Auto) Eos # (Auto) Seg Neutrophils % Seg Neuts % (Manual) Baso # (Auto) Lymphocytes % (Manual) Monocytes % (Manual) Eosinophils % (Manual) Basophils % (Manual) Seg Neutrophils # Seg Neutrophils # Man Lymphocytes # (Manual) Monocytes # (Manual) Eosinophils # (Manual) Nucleated RBC % Basophils # (Manual) PT INR APTT Heparin Anti-Xa Level ABG pH POC ABG pO2 ABG pO2 70.7 L ABG HCO3 36.1 H ABG O2 Saturation 94.4 L ABG Base Excess 10.0 H POC ABG pCO2 ABG Hemoglobin 9.7 L ABG Oxyhemoglobin ABG Sodium ABG Chloride ABG Glucose Oxyhemoglobin 91.8 L Sodium Potassium Chloride Carbon Dioxide BUN Creatinine Glucose POC Glucose 128 H 132 H Lactic Acid Calcium Phosphorus Magnesium AST ALT Lactate Dehydrogenase Total Bilirubin Direct Bilirubin CK-MB (CK-2) C-Reactive Protein NT-Pro-B Natriuret Pep Total Protein Albumin Arterial Blood Glucose Urine WBC (Auto) Urine Creatinine Digoxin 01/04/20 01/04/20 01/04/20 00:10 04:26 05:23 WBC RBC Hgb Hct MCHC RDW MCV MCH Lymph % (Auto) Holt % (Auto) Holt # Eos # Lymph # (Auto) Holt # (Auto) Eos # (Auto) Seg Neutrophils % Seg Neuts % (Manual) Baso # (Auto) Lymphocytes % (Manual) Monocytes % (Manual) Eosinophils % (Manual) Basophils % (Manual) Seg Neutrophils # Seg Neutrophils # Man Lymphocytes # (Manual) Monocytes # (Manual) Eosinophils # (Manual) Nucleated RBC % Basophils # (Manual) PT INR APTT Heparin Anti-Xa Level 0.16 L ABG pH POC ABG pO2 ABG pO2 ABG HCO3 ABG O2 Saturation ABG Base Excess POC ABG pCO2 ABG Hemoglobin ABG Oxyhemoglobin ABG Sodium ABG Chloride ABG Glucose Oxyhemoglobin Sodium Potassium Chloride Carbon Dioxide BUN Creatinine Glucose POC Glucose 121 H 119 H Lactic Acid Calcium Phosphorus Magnesium AST ALT Lactate Dehydrogenase Total Bilirubin Direct Bilirubin CK-MB (CK-2) C-Reactive Protein NT-Pro-B Natriuret Pep Total Protein Albumin Arterial Blood Glucose Urine WBC (Auto) Urine Creatinine Digoxin 01/04/20 01/04/20 01/04/20 09:50 09:50 12:18 WBC 15.4 H RBC 3.30 L Hgb 8.7 L Hct 28.2 L MCHC 31 L RDW 17.0 H MCV MCH 26 L Lymph % (Auto) Holt % (Auto) 7.6 H Holt # Eos # Lymph # (Auto) Holt # (Auto) 1.2 H Eos # (Auto) Seg Neutrophils % 75.4 H Seg Neuts % (Manual) Baso # (Auto) Lymphocytes % (Manual) Monocytes % (Manual) Eosinophils % (Manual) Basophils % (Manual) Seg Neutrophils # 11.6 H Seg Neutrophils # Man Lymphocytes # (Manual) Monocytes # (Manual) Eosinophils # (Manual) Nucleated RBC % Basophils # (Manual) PT INR APTT Heparin Anti-Xa Level ABG pH POC ABG pO2 ABG pO2 ABG HCO3 ABG O2 Saturation ABG Base Excess POC ABG pCO2 ABG Hemoglobin ABG Oxyhemoglobin ABG Sodium ABG Chloride ABG Glucose Oxyhemoglobin Sodium 148 H Potassium 3.5 L Chloride Carbon Dioxide 32 H BUN Creatinine 0.6 L Glucose 114 H POC Glucose 111 H Lactic Acid Calcium Phosphorus Magnesium AST ALT 59 H Lactate Dehydrogenase Total Bilirubin Direct Bilirubin CK-MB (CK-2) C-Reactive Protein NT-Pro-B Natriuret Pep Total Protein Albumin 2.6 L Arterial Blood Glucose Urine WBC (Auto) Urine Creatinine Digoxin 01/05/20 01/05/20 01/05/20 04:05 04:05 05:19 WBC 11.7 H RBC 3.50 L Hgb 9.3 L Hct 29.9 L MCHC 31 L RDW 16.6 H MCV MCH 27 L Lymph % (Auto) 13.1 L Holt % (Auto) 9.7 H Holt # Eos # Lymph # (Auto) Holt # (Auto) 1.1 H Eos # (Auto) Seg Neutrophils % 74.0 H Seg Neuts % (Manual) Baso # (Auto) Lymphocytes % (Manual) Monocytes % (Manual) Eosinophils % (Manual) Basophils % (Manual) Seg Neutrophils # 8.6 H Seg Neutrophils # Man Lymphocytes # (Manual) Monocytes # (Manual) Eosinophils # (Manual) Nucleated RBC % Basophils # (Manual) PT INR APTT Heparin Anti-Xa Level ABG pH POC ABG pO2 ABG pO2 ABG HCO3 ABG O2 Saturation ABG Base Excess POC ABG pCO2 ABG Hemoglobin ABG Oxyhemoglobin ABG Sodium ABG Chloride ABG Glucose Oxyhemoglobin Sodium 151 H Potassium Chloride Carbon Dioxide 34 H BUN Creatinine 0.7 L Glucose POC Glucose 112 H Lactic Acid Calcium Phosphorus Magnesium AST ALT 59 H Lactate Dehydrogenase Total Bilirubin Direct Bilirubin CK-MB (CK-2) C-Reactive Protein NT-Pro-B Natriuret Pep Total Protein 5.8 L Albumin 2.6 L Arterial Blood Glucose Urine WBC (Auto) Urine Creatinine Digoxin 01/05/20 01/06/20 01/06/20 16:04 00:23 04:44 WBC RBC 3.36 L Hgb 8.9 L Hct 28.7 L MCHC 31 L RDW 16.9 H MCV MCH 26 L Lymph % (Auto) Holt % (Auto) 9.4 H Holt # Eos # Lymph # (Auto) Holt # (Auto) Eos # (Auto) Seg Neutrophils % Seg Neuts % (Manual) Baso # (Auto) Lymphocytes % (Manual) Monocytes % (Manual) Eosinophils % (Manual) Basophils % (Manual) Seg Neutrophils # Seg Neutrophils # Man Lymphocytes # (Manual) Monocytes # (Manual) Eosinophils # (Manual) Nucleated RBC % Basophils # (Manual) PT INR APTT Heparin Anti-Xa Level ABG pH POC ABG pO2 ABG pO2 ABG HCO3 ABG O2 Saturation ABG Base Excess POC ABG pCO2 ABG Hemoglobin ABG Oxyhemoglobin ABG Sodium ABG Chloride ABG Glucose Oxyhemoglobin Sodium 151 H Potassium 3.2 L Chloride Carbon Dioxide 34 H BUN Creatinine 0.6 L Glucose POC Glucose 107 H Lactic Acid Calcium Phosphorus Magnesium AST ALT Lactate Dehydrogenase Total Bilirubin Direct Bilirubin CK-MB (CK-2) C-Reactive Protein NT-Pro-B Natriuret Pep Total Protein Albumin Arterial Blood Glucose Urine WBC (Auto) Urine Creatinine Digoxin 01/06/20 01/06/20 01/06/20 04:44 05:33 12:04 WBC RBC Hgb Hct MCHC RDW MCV MCH Lymph % (Auto) Holt % (Auto) Holt # Eos # Lymph # (Auto) Holt # (Auto) Eos # (Auto) Seg Neutrophils % Seg Neuts % (Manual) Baso # (Auto) Lymphocytes % (Manual) Monocytes % (Manual) Eosinophils % (Manual) Basophils % (Manual) Seg Neutrophils # Seg Neutrophils # Man Lymphocytes # (Manual) Monocytes # (Manual) Eosinophils # (Manual) Nucleated RBC % Basophils # (Manual) PT INR APTT Heparin Anti-Xa Level ABG pH POC ABG pO2 ABG pO2 ABG HCO3 ABG O2 Saturation ABG Base Excess POC ABG pCO2 ABG Hemoglobin ABG Oxyhemoglobin ABG Sodium ABG Chloride ABG Glucose Oxyhemoglobin Sodium 151 H Potassium 3.4 L Chloride Carbon Dioxide 33 H BUN Creatinine 0.6 L Glucose 118 H POC Glucose 118 H 123 H Lactic Acid Calcium Phosphorus Magnesium AST ALT Lactate Dehydrogenase Total Bilirubin Direct Bilirubin CK-MB (CK-2) C-Reactive Protein NT-Pro-B Natriuret Pep Total Protein 6.2 L Albumin 2.6 L Arterial Blood Glucose Urine WBC (Auto) Urine Creatinine Digoxin 01/06/20 01/07/20 01/07/20 17:54 00:06 04:10 WBC RBC 3.42 L Hgb 8.9 L Hct 29.0 L MCHC 31 L RDW 17.1 H MCV MCH 26 L Lymph % (Auto) Holt % (Auto) 8.4 H Holt # Eos # Lymph # (Auto) Holt # (Auto) Eos # (Auto) Seg Neutrophils % Seg Neuts % (Manual) Baso # (Auto) Lymphocytes % (Manual) Monocytes % (Manual) Eosinophils % (Manual) Basophils % (Manual) Seg Neutrophils # Seg Neutrophils # Man Lymphocytes # (Manual) Monocytes # (Manual) Eosinophils # (Manual) Nucleated RBC % Basophils # (Manual) PT INR APTT Heparin Anti-Xa Level ABG pH POC ABG pO2 ABG pO2 ABG HCO3 ABG O2 Saturation ABG Base Excess POC ABG pCO2 ABG Hemoglobin ABG Oxyhemoglobin ABG Sodium ABG Chloride ABG Glucose Oxyhemoglobin Sodium Potassium Chloride Carbon Dioxide BUN Creatinine Glucose POC Glucose 112 H 126 H Lactic Acid Calcium Phosphorus Magnesium AST ALT Lactate Dehydrogenase Total Bilirubin Direct Bilirubin CK-MB (CK-2) C-Reactive Protein NT-Pro-B Natriuret Pep Total Protein Albumin Arterial Blood Glucose Urine WBC (Auto) Urine Creatinine Digoxin 01/07/20 01/07/20 01/07/20 04:10 05:59 12:27 WBC RBC Hgb Hct MCHC RDW MCV MCH Lymph % (Auto) Holt % (Auto) Holt # Eos # Lymph # (Auto) Holt # (Auto) Eos # (Auto) Seg Neutrophils % Seg Neuts % (Manual) Baso # (Auto) Lymphocytes % (Manual) Monocytes % (Manual) Eosinophils % (Manual) Basophils % (Manual) Seg Neutrophils # Seg Neutrophils # Man Lymphocytes # (Manual) Monocytes # (Manual) Eosinophils # (Manual) Nucleated RBC % Basophils # (Manual) PT INR APTT Heparin Anti-Xa Level ABG pH POC ABG pO2 ABG pO2 ABG HCO3 ABG O2 Saturation ABG Base Excess POC ABG pCO2 ABG Hemoglobin ABG Oxyhemoglobin ABG Sodium ABG Chloride ABG Glucose Oxyhemoglobin Sodium 153 H Potassium 3.5 L Chloride Carbon Dioxide 34 H BUN Creatinine 0.6 L Glucose 121 H POC Glucose 121 H 126 H Lactic Acid Calcium Phosphorus Magnesium AST ALT Lactate Dehydrogenase Total Bilirubin Direct Bilirubin CK-MB (CK-2) C-Reactive Protein NT-Pro-B Natriuret Pep Total Protein 5.9 L Albumin 2.4 L Arterial Blood Glucose Urine WBC (Auto) Urine Creatinine Digoxin 01/07/20 01/08/20 01/08/20 18:12 00:03 05:41 WBC RBC Hgb Hct MCHC RDW MCV MCH Lymph % (Auto) Holt % (Auto) Holt # Eos # Lymph # (Auto) Holt # (Auto) Eos # (Auto) Seg Neutrophils % Seg Neuts % (Manual) Baso # (Auto) Lymphocytes % (Manual) Monocytes % (Manual) Eosinophils % (Manual) Basophils % (Manual) Seg Neutrophils # Seg Neutrophils # Man Lymphocytes # (Manual) Monocytes # (Manual) Eosinophils # (Manual) Nucleated RBC % Basophils # (Manual) PT INR APTT Heparin Anti-Xa Level ABG pH POC ABG pO2 ABG pO2 ABG HCO3 ABG O2 Saturation ABG Base Excess POC ABG pCO2 ABG Hemoglobin ABG Oxyhemoglobin ABG Sodium ABG Chloride ABG Glucose Oxyhemoglobin Sodium Potassium Chloride Carbon Dioxide BUN Creatinine Glucose POC Glucose 124 H 130 H 138 H Lactic Acid Calcium Phosphorus Magnesium AST ALT Lactate Dehydrogenase Total Bilirubin Direct Bilirubin CK-MB (CK-2) C-Reactive Protein NT-Pro-B Natriuret Pep Total Protein Albumin Arterial Blood Glucose Urine WBC (Auto) Urine Creatinine Digoxin 01/08/20 01/08/20 01/08/20 09:28 11:42 18:21 WBC RBC Hgb Hct MCHC RDW MCV MCH Lymph % (Auto) Holt % (Auto) Holt # Eos # Lymph # (Auto) Holt # (Auto) Eos # (Auto) Seg Neutrophils % Seg Neuts % (Manual) Baso # (Auto) Lymphocytes % (Manual) Monocytes % (Manual) Eosinophils % (Manual) Basophils % (Manual) Seg Neutrophils # Seg Neutrophils # Man Lymphocytes # (Manual) Monocytes # (Manual) Eosinophils # (Manual) Nucleated RBC % Basophils # (Manual) PT INR APTT Heparin Anti-Xa Level ABG pH POC ABG pO2 ABG pO2 ABG HCO3 ABG O2 Saturation ABG Base Excess POC ABG pCO2 ABG Hemoglobin ABG Oxyhemoglobin ABG Sodium ABG Chloride ABG Glucose Oxyhemoglobin Sodium Potassium Chloride Carbon Dioxide BUN Creatinine Glucose POC Glucose 181 H 150 H 129 H Lactic Acid Calcium Phosphorus Magnesium AST ALT Lactate Dehydrogenase Total Bilirubin Direct Bilirubin CK-MB (CK-2) C-Reactive Protein NT-Pro-B Natriuret Pep Total Protein Albumin Arterial Blood Glucose Urine WBC (Auto) Urine Creatinine Digoxin 01/08/20 01/08/20 01/09/20 19:25 23:55 04:11 WBC RBC 3.43 L Hgb 8.9 L Hct 28.7 L MCHC 31 L RDW 17.6 H MCV MCH 26 L Lymph % (Auto) Holt % (Auto) 8.6 H Holt # Eos # Lymph # (Auto) Holt # (Auto) Eos # (Auto) Seg Neutrophils % Seg Neuts % (Manual) Baso # (Auto) Lymphocytes % (Manual) Monocytes % (Manual) Eosinophils % (Manual) Basophils % (Manual) Seg Neutrophils # Seg Neutrophils # Man Lymphocytes # (Manual) Monocytes # (Manual) Eosinophils # (Manual) Nucleated RBC % Basophils # (Manual) PT INR APTT Heparin Anti-Xa Level ABG pH POC ABG pO2 ABG pO2 ABG HCO3 ABG O2 Saturation ABG Base Excess POC ABG pCO2 ABG Hemoglobin ABG Oxyhemoglobin ABG Sodium ABG Chloride ABG Glucose Oxyhemoglobin Sodium Potassium Chloride Carbon Dioxide BUN Creatinine 0.7 L Glucose 117 H POC Glucose 132 H Lactic Acid Calcium Phosphorus Magnesium AST ALT Lactate Dehydrogenase Total Bilirubin Direct Bilirubin CK-MB (CK-2) C-Reactive Protein NT-Pro-B Natriuret Pep Total Protein Albumin Arterial Blood Glucose Urine WBC (Auto) Urine Creatinine Digoxin 01/09/20 01/09/20 01/09/20 04:11 05:38 22:58 WBC RBC Hgb Hct MCHC RDW MCV MCH Lymph % (Auto) Holt % (Auto) Holt # Eos # Lymph # (Auto) Holt # (Auto) Eos # (Auto) Seg Neutrophils % Seg Neuts % (Manual) Baso # (Auto) Lymphocytes % (Manual) Monocytes % (Manual) Eosinophils % (Manual) Basophils % (Manual) Seg Neutrophils # Seg Neutrophils # Man Lymphocytes # (Manual) Monocytes # (Manual) Eosinophils # (Manual) Nucleated RBC % Basophils # (Manual) PT INR APTT Heparin Anti-Xa Level ABG pH POC ABG pO2 ABG pO2 ABG HCO3 ABG O2 Saturation ABG Base Excess POC ABG pCO2 ABG Hemoglobin ABG Oxyhemoglobin ABG Sodium ABG Chloride ABG Glucose Oxyhemoglobin Sodium 147 H Potassium 3.3 L D Chloride Carbon Dioxide 32 H BUN Creatinine 0.6 L Glucose 106 H POC Glucose 107 H 113 H Lactic Acid Calcium Phosphorus Magnesium AST ALT Lactate Dehydrogenase Total Bilirubin Direct Bilirubin CK-MB (CK-2) C-Reactive Protein NT-Pro-B Natriuret Pep Total Protein Albumin Arterial Blood Glucose Urine WBC (Auto) Urine Creatinine Digoxin 01/10/20 01/10/20 01/10/20 04:05 11:36 17:54 WBC RBC Hgb Hct MCHC RDW MCV MCH Lymph % (Auto) Holt % (Auto) Holt # Eos # Lymph # (Auto) Holt # (Auto) Eos # (Auto) Seg Neutrophils % Seg Neuts % (Manual) Baso # (Auto) Lymphocytes % (Manual) Monocytes % (Manual) Eosinophils % (Manual) Basophils % (Manual) Seg Neutrophils # Seg Neutrophils # Man Lymphocytes # (Manual) Monocytes # (Manual) Eosinophils # (Manual) Nucleated RBC % Basophils # (Manual) PT INR APTT Heparin Anti-Xa Level ABG pH POC ABG pO2 ABG pO2 ABG HCO3 ABG O2 Saturation ABG Base Excess POC ABG pCO2 ABG Hemoglobin ABG Oxyhemoglobin ABG Sodium ABG Chloride ABG Glucose Oxyhemoglobin Sodium Potassium Chloride Carbon Dioxide BUN Creatinine 0.7 L Glucose 110 H POC Glucose 129 H 117 H Lactic Acid Calcium Phosphorus Magnesium AST ALT Lactate Dehydrogenase Total Bilirubin Direct Bilirubin CK-MB (CK-2) C-Reactive Protein NT-Pro-B Natriuret Pep Total Protein Albumin Arterial Blood Glucose Urine WBC (Auto) Urine Creatinine Digoxin 01/10/20 01/11/20 01/11/20 23:52 03:19 12:09 WBC RBC Hgb Hct MCHC RDW MCV MCH Lymph % (Auto) Holt % (Auto) Holt # Eos # Lymph # (Auto) Holt # (Auto) Eos # (Auto) Seg Neutrophils % Seg Neuts % (Manual) Baso # (Auto) Lymphocytes % (Manual) Monocytes % (Manual) Eosinophils % (Manual) Basophils % (Manual) Seg Neutrophils # Seg Neutrophils # Man Lymphocytes # (Manual) Monocytes # (Manual) Eosinophils # (Manual) Nucleated RBC % Basophils # (Manual) PT INR APTT Heparin Anti-Xa Level ABG pH POC ABG pO2 ABG pO2 ABG HCO3 ABG O2 Saturation ABG Base Excess POC ABG pCO2 ABG Hemoglobin ABG Oxyhemoglobin ABG Sodium ABG Chloride ABG Glucose Oxyhemoglobin Sodium Potassium Chloride Carbon Dioxide BUN Creatinine Glucose POC Glucose 117 H 136 H 115 H Lactic Acid Calcium Phosphorus Magnesium AST ALT Lactate Dehydrogenase Total Bilirubin Direct Bilirubin CK-MB (CK-2) C-Reactive Protein NT-Pro-B Natriuret Pep Total Protein Albumin Arterial Blood Glucose Urine WBC (Auto) Urine Creatinine Digoxin 01/11/20 01/11/20 01/12/20 18:27 23:28 00:23 WBC RBC Hgb 9.8 L Hct 31.6 L MCHC 31 L RDW 17.8 H MCV 83 L MCH 26 L Lymph % (Auto) Holt % (Auto) 8.0 H Holt # Eos # Lymph # (Auto) Holt # (Auto) Eos # (Auto) Seg Neutrophils % Seg Neuts % (Manual) Baso # (Auto) Lymphocytes % (Manual) Monocytes % (Manual) Eosinophils % (Manual) Basophils % (Manual) Seg Neutrophils # Seg Neutrophils # Man Lymphocytes # (Manual) Monocytes # (Manual) Eosinophils # (Manual) Nucleated RBC % Basophils # (Manual) PT INR APTT Heparin Anti-Xa Level ABG pH POC ABG pO2 ABG pO2 ABG HCO3 ABG O2 Saturation ABG Base Excess POC ABG pCO2 ABG Hemoglobin ABG Oxyhemoglobin ABG Sodium ABG Chloride ABG Glucose Oxyhemoglobin Sodium Potassium Chloride Carbon Dioxide BUN Creatinine Glucose POC Glucose 118 H 122 H Lactic Acid Calcium Phosphorus Magnesium AST ALT Lactate Dehydrogenase Total Bilirubin Direct Bilirubin CK-MB (CK-2) C-Reactive Protein NT-Pro-B Natriuret Pep Total Protein Albumin Arterial Blood Glucose Urine WBC (Auto) Urine Creatinine Digoxin 01/12/20 01/12/20 01/12/20 00:23 04:18 04:18 WBC RBC Hgb 9.6 L Hct 30.9 L MCHC 31 L RDW 17.3 H MCV 81 L MCH 25 L Lymph % (Auto) Holt % (Auto) Holt # Eos # Lymph # (Auto) Holt # (Auto) Eos # (Auto) Seg Neutrophils % Seg Neuts % (Manual) Baso # (Auto) Lymphocytes % (Manual) Monocytes % (Manual) Eosinophils % (Manual) Basophils % (Manual) Seg Neutrophils # Seg Neutrophils # Man Lymphocytes # (Manual) Monocytes # (Manual) Eosinophils # (Manual) Nucleated RBC % Basophils # (Manual) PT INR APTT Heparin Anti-Xa Level ABG pH POC ABG pO2 ABG pO2 ABG HCO3 ABG O2 Saturation ABG Base Excess POC ABG pCO2 ABG Hemoglobin ABG Oxyhemoglobin ABG Sodium ABG Chloride ABG Glucose Oxyhemoglobin Sodium Potassium Chloride Carbon Dioxide BUN Creatinine 0.7 L 0.7 L Glucose 111 H 108 H POC Glucose Lactic Acid Calcium Phosphorus Magnesium AST ALT Lactate Dehydrogenase Total Bilirubin Direct Bilirubin CK-MB (CK-2) C-Reactive Protein NT-Pro-B Natriuret Pep Total Protein Albumin 2.6 L Arterial Blood Glucose Urine WBC (Auto) Urine Creatinine Digoxin 01/12/20 01/12/20 01/12/20 06:03 12:27 13:58 WBC RBC Hgb Hct MCHC RDW MCV MCH Lymph % (Auto) Holt % (Auto) Holt # Eos # Lymph # (Auto) Holt # (Auto) Eos # (Auto) Seg Neutrophils % Seg Neuts % (Manual) Baso # (Auto) Lymphocytes % (Manual) Monocytes % (Manual) Eosinophils % (Manual) Basophils % (Manual) Seg Neutrophils # Seg Neutrophils # Man Lymphocytes # (Manual) Monocytes # (Manual) Eosinophils # (Manual) Nucleated RBC % Basophils # (Manual) PT INR APTT Heparin Anti-Xa Level ABG pH 7.453 H POC ABG pO2 76.6 L ABG pO2 ABG HCO3 ABG O2 Saturation ABG Base Excess POC ABG pCO2 ABG Hemoglobin 10.3 L ABG Oxyhemoglobin ABG Sodium ABG Chloride ABG Glucose 99 H Oxyhemoglobin Sodium Potassium Chloride Carbon Dioxide BUN Creatinine Glucose POC Glucose 128 H 121 H Lactic Acid Calcium Phosphorus Magnesium AST ALT Lactate Dehydrogenase Total Bilirubin Direct Bilirubin CK-MB (CK-2) C-Reactive Protein NT-Pro-B Natriuret Pep Total Protein Albumin Arterial Blood Glucose 99 H Urine WBC (Auto) Urine Creatinine Digoxin 01/12/20 01/13/20 01/13/20 18:24 12:01 17:46 WBC RBC Hgb Hct MCHC RDW MCV MCH Lymph % (Auto) Holt % (Auto) Holt # Eos # Lymph # (Auto) Holt # (Auto) Eos # (Auto) Seg Neutrophils % Seg Neuts % (Manual) Baso # (Auto) Lymphocytes % (Manual) Monocytes % (Manual) Eosinophils % (Manual) Basophils % (Manual) Seg Neutrophils # Seg Neutrophils # Man Lymphocytes # (Manual) Monocytes # (Manual) Eosinophils # (Manual) Nucleated RBC % Basophils # (Manual) PT INR APTT Heparin Anti-Xa Level ABG pH POC ABG pO2 ABG pO2 ABG HCO3 ABG O2 Saturation ABG Base Excess POC ABG pCO2 ABG Hemoglobin ABG Oxyhemoglobin ABG Sodium ABG Chloride ABG Glucose Oxyhemoglobin Sodium Potassium Chloride Carbon Dioxide BUN Creatinine Glucose POC Glucose 119 H 107 H 124 H Lactic Acid Calcium Phosphorus Magnesium AST ALT Lactate Dehydrogenase Total Bilirubin Direct Bilirubin CK-MB (CK-2) C-Reactive Protein NT-Pro-B Natriuret Pep Total Protein Albumin Arterial Blood Glucose Urine WBC (Auto) Urine Creatinine Digoxin 01/13/20 01/14/20 01/14/20 20:40 00:10 05:33 WBC RBC Hgb Hct MCHC RDW MCV MCH Lymph % (Auto) Holt % (Auto) Holt # Eos # Lymph # (Auto) Holt # (Auto) Eos # (Auto) Seg Neutrophils % Seg Neuts % (Manual) Baso # (Auto) Lymphocytes % (Manual) Monocytes % (Manual) Eosinophils % (Manual) Basophils % (Manual) Seg Neutrophils # Seg Neutrophils # Man Lymphocytes # (Manual) Monocytes # (Manual) Eosinophils # (Manual) Nucleated RBC % Basophils # (Manual) PT INR APTT Heparin Anti-Xa Level ABG pH POC ABG pO2 ABG pO2 65.3 L ABG HCO3 31.8 H ABG O2 Saturation 93.5 L ABG Base Excess 6.7 H POC ABG pCO2 ABG Hemoglobin 13.3 L ABG Oxyhemoglobin ABG Sodium ABG Chloride ABG Glucose Oxyhemoglobin 90.9 L Sodium Potassium Chloride Carbon Dioxide BUN Creatinine Glucose POC Glucose 111 H 111 H Lactic Acid Calcium Phosphorus Magnesium AST ALT Lactate Dehydrogenase Total Bilirubin Direct Bilirubin CK-MB (CK-2) C-Reactive Protein NT-Pro-B Natriuret Pep Total Protein Albumin Arterial Blood Glucose Urine WBC (Auto) Urine Creatinine Digoxin 01/14/20 01/14/20 01/14/20 12:10 16:14 16:14 WBC RBC Hgb 10.6 L Hct 34.2 L MCHC 31 L RDW 18.3 H MCV 83 L MCH 26 L Lymph % (Auto) Holt % (Auto) 7.4 H Holt # Eos # Lymph # (Auto) Holt # (Auto) Eos # (Auto) Seg Neutrophils % 71.9 H Seg Neuts % (Manual) Baso # (Auto) Lymphocytes % (Manual) Monocytes % (Manual) Eosinophils % (Manual) Basophils % (Manual) Seg Neutrophils # Seg Neutrophils # Man Lymphocytes # (Manual) Monocytes # (Manual) Eosinophils # (Manual) Nucleated RBC % Basophils # (Manual) PT INR APTT Heparin Anti-Xa Level ABG pH POC ABG pO2 ABG pO2 ABG HCO3 ABG O2 Saturation ABG Base Excess POC ABG pCO2 ABG Hemoglobin ABG Oxyhemoglobin ABG Sodium ABG Chloride ABG Glucose Oxyhemoglobin Sodium Potassium Chloride Carbon Dioxide 31 H BUN Creatinine 0.6 L Glucose 131 H POC Glucose 139 H Lactic Acid Calcium Phosphorus Magnesium AST ALT Lactate Dehydrogenase Total Bilirubin Direct Bilirubin CK-MB (CK-2) C-Reactive Protein NT-Pro-B Natriuret Pep Total Protein Albumin Arterial Blood Glucose Urine WBC (Auto) Urine Creatinine Digoxin 01/14/20 01/15/20 01/15/20 18:05 00:52 05:35 WBC RBC Hgb Hct MCHC RDW MCV MCH Lymph % (Auto) Holt % (Auto) Holt # Eos # Lymph # (Auto) Holt # (Auto) Eos # (Auto) Seg Neutrophils % Seg Neuts % (Manual) Baso # (Auto) Lymphocytes % (Manual) Monocytes % (Manual) Eosinophils % (Manual) Basophils % (Manual) Seg Neutrophils # Seg Neutrophils # Man Lymphocytes # (Manual) Monocytes # (Manual) Eosinophils # (Manual) Nucleated RBC % Basophils # (Manual) PT INR APTT Heparin Anti-Xa Level ABG pH POC ABG pO2 ABG pO2 ABG HCO3 ABG O2 Saturation ABG Base Excess POC ABG pCO2 ABG Hemoglobin ABG Oxyhemoglobin ABG Sodium ABG Chloride ABG Glucose Oxyhemoglobin Sodium Potassium Chloride Carbon Dioxide BUN Creatinine Glucose POC Glucose 147 H 140 H 159 H Lactic Acid Calcium Phosphorus Magnesium AST ALT Lactate Dehydrogenase Total Bilirubin Direct Bilirubin CK-MB (CK-2) C-Reactive Protein NT-Pro-B Natriuret Pep Total Protein Albumin Arterial Blood Glucose Urine WBC (Auto) Urine Creatinine Digoxin 01/15/20 01/15/20 01/16/20 12:52 17:43 00:32 WBC RBC Hgb Hct MCHC RDW MCV MCH Lymph % (Auto) Holt % (Auto) Holt # Eos # Lymph # (Auto) Holt # (Auto) Eos # (Auto) Seg Neutrophils % Seg Neuts % (Manual) Baso # (Auto) Lymphocytes % (Manual) Monocytes % (Manual) Eosinophils % (Manual) Basophils % (Manual) Seg Neutrophils # Seg Neutrophils # Man Lymphocytes # (Manual) Monocytes # (Manual) Eosinophils # (Manual) Nucleated RBC % Basophils # (Manual) PT INR APTT Heparin Anti-Xa Level ABG pH POC ABG pO2 ABG pO2 ABG HCO3 ABG O2 Saturation ABG Base Excess POC ABG pCO2 ABG Hemoglobin ABG Oxyhemoglobin ABG Sodium ABG Chloride ABG Glucose Oxyhemoglobin Sodium Potassium Chloride Carbon Dioxide BUN Creatinine Glucose POC Glucose 164 H 167 H 153 H Lactic Acid Calcium Phosphorus Magnesium AST ALT Lactate Dehydrogenase Total Bilirubin Direct Bilirubin CK-MB (CK-2) C-Reactive Protein NT-Pro-B Natriuret Pep Total Protein Albumin Arterial Blood Glucose Urine WBC (Auto) Urine Creatinine Digoxin 01/16/20 01/16/20 01/17/20 05:46 11:48 06:38 WBC RBC Hgb Hct MCHC RDW MCV MCH Lymph % (Auto) Holt % (Auto) Holt # Eos # Lymph # (Auto) Holt # (Auto) Eos # (Auto) Seg Neutrophils % Seg Neuts % (Manual) Baso # (Auto) Lymphocytes % (Manual) Monocytes % (Manual) Eosinophils % (Manual) Basophils % (Manual) Seg Neutrophils # Seg Neutrophils # Man Lymphocytes # (Manual) Monocytes # (Manual) Eosinophils # (Manual) Nucleated RBC % Basophils # (Manual) PT INR APTT Heparin Anti-Xa Level ABG pH POC ABG pO2 ABG pO2 ABG HCO3 ABG O2 Saturation ABG Base Excess POC ABG pCO2 ABG Hemoglobin ABG Oxyhemoglobin ABG Sodium ABG Chloride ABG Glucose Oxyhemoglobin Sodium Potassium Chloride Carbon Dioxide BUN Creatinine Glucose POC Glucose 163 H 155 H 116 H Lactic Acid Calcium Phosphorus Magnesium AST ALT Lactate Dehydrogenase Total Bilirubin Direct Bilirubin CK-MB (CK-2) C-Reactive Protein NT-Pro-B Natriuret Pep Total Protein Albumin Arterial Blood Glucose Urine WBC (Auto) Urine Creatinine Digoxin 01/17/20 01/17/20 01/18/20 11:36 17:43 00:12 WBC RBC Hgb Hct MCHC RDW MCV MCH Lymph % (Auto) Holt % (Auto) Holt # Eos # Lymph # (Auto) Holt # (Auto) Eos # (Auto) Seg Neutrophils % Seg Neuts % (Manual) Baso # (Auto) Lymphocytes % (Manual) Monocytes % (Manual) Eosinophils % (Manual) Basophils % (Manual) Seg Neutrophils # Seg Neutrophils # Man Lymphocytes # (Manual) Monocytes # (Manual) Eosinophils # (Manual) Nucleated RBC % Basophils # (Manual) PT INR APTT Heparin Anti-Xa Level ABG pH POC ABG pO2 ABG pO2 ABG HCO3 ABG O2 Saturation ABG Base Excess POC ABG pCO2 ABG Hemoglobin ABG Oxyhemoglobin ABG Sodium ABG Chloride ABG Glucose Oxyhemoglobin Sodium Potassium Chloride Carbon Dioxide BUN Creatinine Glucose POC Glucose 110 H 134 H 108 H Lactic Acid Calcium Phosphorus Magnesium AST ALT Lactate Dehydrogenase Total Bilirubin Direct Bilirubin CK-MB (CK-2) C-Reactive Protein NT-Pro-B Natriuret Pep Total Protein Albumin Arterial Blood Glucose Urine WBC (Auto) Urine Creatinine Digoxin 01/18/20 01/18/20 01/18/20 05:37 06:46 06:46 WBC RBC Hgb 10.1 L Hct 32.2 L MCHC 31 L RDW 18.1 H MCV 81 L MCH 25 L Lymph % (Auto) Holt % (Auto) Holt # Eos # Lymph # (Auto) Holt # (Auto) Eos # (Auto) Seg Neutrophils % 71.9 H Seg Neuts % (Manual) Baso # (Auto) Lymphocytes % (Manual) Monocytes % (Manual) Eosinophils % (Manual) Basophils % (Manual) Seg Neutrophils # Seg Neutrophils # Man Lymphocytes # (Manual) Monocytes # (Manual) Eosinophils # (Manual) Nucleated RBC % Basophils # (Manual) PT INR APTT Heparin Anti-Xa Level ABG pH POC ABG pO2 ABG pO2 ABG HCO3 ABG O2 Saturation ABG Base Excess POC ABG pCO2 ABG Hemoglobin ABG Oxyhemoglobin ABG Sodium ABG Chloride ABG Glucose Oxyhemoglobin Sodium Potassium Chloride Carbon Dioxide BUN Creatinine 0.7 L Glucose 155 H POC Glucose 168 H Lactic Acid Calcium Phosphorus Magnesium AST ALT Lactate Dehydrogenase Total Bilirubin Direct Bilirubin CK-MB (CK-2) C-Reactive Protein NT-Pro-B Natriuret Pep Total Protein Albumin Arterial Blood Glucose Urine WBC (Auto) Urine Creatinine Digoxin 01/18/20 01/18/20 01/18/20 12:05 17:14 23:28 WBC RBC Hgb Hct MCHC RDW MCV MCH Lymph % (Auto) Holt % (Auto) Holt # Eos # Lymph # (Auto) Holt # (Auto) Eos # (Auto) Seg Neutrophils % Seg Neuts % (Manual) Baso # (Auto) Lymphocytes % (Manual) Monocytes % (Manual) Eosinophils % (Manual) Basophils % (Manual) Seg Neutrophils # Seg Neutrophils # Man Lymphocytes # (Manual) Monocytes # (Manual) Eosinophils # (Manual) Nucleated RBC % Basophils # (Manual) PT INR APTT Heparin Anti-Xa Level ABG pH POC ABG pO2 ABG pO2 ABG HCO3 ABG O2 Saturation ABG Base Excess POC ABG pCO2 ABG Hemoglobin ABG Oxyhemoglobin ABG Sodium ABG Chloride ABG Glucose Oxyhemoglobin Sodium Potassium Chloride Carbon Dioxide BUN Creatinine Glucose POC Glucose 128 H 126 H 128 H Lactic Acid Calcium Phosphorus Magnesium AST ALT Lactate Dehydrogenase Total Bilirubin Direct Bilirubin CK-MB (CK-2) C-Reactive Protein NT-Pro-B Natriuret Pep Total Protein Albumin Arterial Blood Glucose Urine WBC (Auto) Urine Creatinine Digoxin 01/19/20 01/19/20 01/19/20 05:39 12:33 17:36 WBC RBC Hgb Hct MCHC RDW MCV MCH Lymph % (Auto) Holt % (Auto) Holt # Eos # Lymph # (Auto) Holt # (Auto) Eos # (Auto) Seg Neutrophils % Seg Neuts % (Manual) Baso # (Auto) Lymphocytes % (Manual) Monocytes % (Manual) Eosinophils % (Manual) Basophils % (Manual) Seg Neutrophils # Seg Neutrophils # Man Lymphocytes # (Manual) Monocytes # (Manual) Eosinophils # (Manual) Nucleated RBC % Basophils # (Manual) PT INR APTT Heparin Anti-Xa Level ABG pH POC ABG pO2 ABG pO2 ABG HCO3 ABG O2 Saturation ABG Base Excess POC ABG pCO2 ABG Hemoglobin ABG Oxyhemoglobin ABG Sodium ABG Chloride ABG Glucose Oxyhemoglobin Sodium Potassium Chloride Carbon Dioxide BUN Creatinine Glucose POC Glucose 164 H 171 H 152 H Lactic Acid Calcium Phosphorus Magnesium AST ALT Lactate Dehydrogenase Total Bilirubin Direct Bilirubin CK-MB (CK-2) C-Reactive Protein NT-Pro-B Natriuret Pep Total Protein Albumin Arterial Blood Glucose Urine WBC (Auto) Urine Creatinine Digoxin 01/20/20 01/20/20 01/20/20 00:12 05:20 05:35 WBC RBC Hgb 9.2 L Hct 29.4 L MCHC 31 L RDW 17.9 H MCV 81 L MCH 25 L Lymph % (Auto) Holt % (Auto) Holt # Eos # Lymph # (Auto) Holt # (Auto) Eos # (Auto) Seg Neutrophils % Seg Neuts % (Manual) Baso # (Auto) Lymphocytes % (Manual) Monocytes % (Manual) Eosinophils % (Manual) Basophils % (Manual) Seg Neutrophils # Seg Neutrophils # Man Lymphocytes # (Manual) Monocytes # (Manual) Eosinophils # (Manual) Nucleated RBC % Basophils # (Manual) PT INR APTT Heparin Anti-Xa Level ABG pH POC ABG pO2 ABG pO2 ABG HCO3 ABG O2 Saturation ABG Base Excess POC ABG pCO2 ABG Hemoglobin ABG Oxyhemoglobin ABG Sodium ABG Chloride ABG Glucose Oxyhemoglobin Sodium Potassium Chloride Carbon Dioxide BUN Creatinine Glucose POC Glucose 120 H 136 H Lactic Acid Calcium Phosphorus Magnesium AST ALT Lactate Dehydrogenase Total Bilirubin Direct Bilirubin CK-MB (CK-2) C-Reactive Protein NT-Pro-B Natriuret Pep Total Protein Albumin Arterial Blood Glucose Urine WBC (Auto) Urine Creatinine Digoxin 01/20/20 01/20/20 01/20/20 05:40 11:58 14:55 WBC RBC Hgb 9.0 L Hct 28.3 L MCHC RDW MCV MCH Lymph % (Auto) Holt % (Auto) Holt # Eos # Lymph # (Auto) Holt # (Auto) Eos # (Auto) Seg Neutrophils % Seg Neuts % (Manual) Baso # (Auto) Lymphocytes % (Manual) Monocytes % (Manual) Eosinophils % (Manual) Basophils % (Manual) Seg Neutrophils # Seg Neutrophils # Man Lymphocytes # (Manual) Monocytes # (Manual) Eosinophils # (Manual) Nucleated RBC % Basophils # (Manual) PT INR APTT Heparin Anti-Xa Level ABG pH POC ABG pO2 ABG pO2 ABG HCO3 ABG O2 Saturation ABG Base Excess POC ABG pCO2 ABG Hemoglobin ABG Oxyhemoglobin ABG Sodium ABG Chloride ABG Glucose Oxyhemoglobin Sodium Potassium Chloride Carbon Dioxide 32 H BUN 22 H Creatinine 0.7 L Glucose 128 H POC Glucose 152 H Lactic Acid Calcium Phosphorus Magnesium AST ALT Lactate Dehydrogenase Total Bilirubin Direct Bilirubin CK-MB (CK-2) C-Reactive Protein NT-Pro-B Natriuret Pep Total Protein Albumin Arterial Blood Glucose Urine WBC (Auto) Urine Creatinine Digoxin 01/20/20 01/20/20 01/20/20 14:55 18:14 21:35 WBC RBC Hgb Hct MCHC RDW MCV MCH Lymph % (Auto) Holt % (Auto) Holt # Eos # Lymph # (Auto) Holt # (Auto) Eos # (Auto) Seg Neutrophils % Seg Neuts % (Manual) Baso # (Auto) Lymphocytes % (Manual) Monocytes % (Manual) Eosinophils % (Manual) Basophils % (Manual) Seg Neutrophils # Seg Neutrophils # Man Lymphocytes # (Manual) Monocytes # (Manual) Eosinophils # (Manual) Nucleated RBC % Basophils # (Manual) PT 20.4 H INR 1.72 H APTT 40.6 H Heparin Anti-Xa Level > 2.00 H ABG pH POC ABG pO2 ABG pO2 ABG HCO3 ABG O2 Saturation ABG Base Excess POC ABG pCO2 ABG Hemoglobin ABG Oxyhemoglobin ABG Sodium ABG Chloride ABG Glucose Oxyhemoglobin Sodium Potassium Chloride Carbon Dioxide BUN Creatinine Glucose POC Glucose 150 H Lactic Acid Calcium Phosphorus Magnesium AST ALT Lactate Dehydrogenase Total Bilirubin Direct Bilirubin CK-MB (CK-2) C-Reactive Protein NT-Pro-B Natriuret Pep Total Protein Albumin Arterial Blood Glucose Urine WBC (Auto) Urine Creatinine Digoxin 01/21/20 01/21/20 01/21/20 00:30 05:47 05:59 WBC RBC Hgb Hct MCHC RDW MCV MCH Lymph % (Auto) Holt % (Auto) Holt # Eos # Lymph # (Auto) Holt # (Auto) Eos # (Auto) Seg Neutrophils % Seg Neuts % (Manual) Baso # (Auto) Lymphocytes % (Manual) Monocytes % (Manual) Eosinophils % (Manual) Basophils % (Manual) Seg Neutrophils # Seg Neutrophils # Man Lymphocytes # (Manual) Monocytes # (Manual) Eosinophils # (Manual) Nucleated RBC % Basophils # (Manual) PT INR APTT Heparin Anti-Xa Level 1.93 H ABG pH POC ABG pO2 ABG pO2 ABG HCO3 ABG O2 Saturation ABG Base Excess POC ABG pCO2 ABG Hemoglobin ABG Oxyhemoglobin ABG Sodium ABG Chloride ABG Glucose Oxyhemoglobin Sodium Potassium Chloride Carbon Dioxide BUN Creatinine Glucose POC Glucose 126 H 148 H Lactic Acid Calcium Phosphorus Magnesium AST ALT Lactate Dehydrogenase Total Bilirubin Direct Bilirubin CK-MB (CK-2) C-Reactive Protein NT-Pro-B Natriuret Pep Total Protein Albumin Arterial Blood Glucose Urine WBC (Auto) Urine Creatinine Digoxin 01/21/20 01/21/20 01/21/20 12:32 18:20 23:54 WBC RBC Hgb Hct MCHC RDW MCV MCH Lymph % (Auto) Holt % (Auto) Holt # Eos # Lymph # (Auto) Holt # (Auto) Eos # (Auto) Seg Neutrophils % Seg Neuts % (Manual) Baso # (Auto) Lymphocytes % (Manual) Monocytes % (Manual) Eosinophils % (Manual) Basophils % (Manual) Seg Neutrophils # Seg Neutrophils # Man Lymphocytes # (Manual) Monocytes # (Manual) Eosinophils # (Manual) Nucleated RBC % Basophils # (Manual) PT INR APTT Heparin Anti-Xa Level 1.28 H ABG pH POC ABG pO2 ABG pO2 ABG HCO3 ABG O2 Saturation ABG Base Excess POC ABG pCO2 ABG Hemoglobin ABG Oxyhemoglobin ABG Sodium ABG Chloride ABG Glucose Oxyhemoglobin Sodium Potassium Chloride Carbon Dioxide BUN Creatinine Glucose POC Glucose 112 H 146 H Lactic Acid Calcium Phosphorus Magnesium AST ALT Lactate Dehydrogenase Total Bilirubin Direct Bilirubin CK-MB (CK-2) C-Reactive Protein NT-Pro-B Natriuret Pep Total Protein Albumin Arterial Blood Glucose Urine WBC (Auto) Urine Creatinine Digoxin 01/22/20 01/22/20 01/22/20 04:45 04:45 05:48 WBC RBC Hgb 9.3 L Hct 29.0 L MCHC RDW MCV MCH Lymph % (Auto) Holt % (Auto) Holt # Eos # Lymph # (Auto) Holt # (Auto) Eos # (Auto) Seg Neutrophils % Seg Neuts % (Manual) Baso # (Auto) Lymphocytes % (Manual) Monocytes % (Manual) Eosinophils % (Manual) Basophils % (Manual) Seg Neutrophils # Seg Neutrophils # Man Lymphocytes # (Manual) Monocytes # (Manual) Eosinophils # (Manual) Nucleated RBC % Basophils # (Manual) PT INR APTT Heparin Anti-Xa Level 1.34 H ABG pH POC ABG pO2 ABG pO2 ABG HCO3 ABG O2 Saturation ABG Base Excess POC ABG pCO2 ABG Hemoglobin ABG Oxyhemoglobin ABG Sodium ABG Chloride ABG Glucose Oxyhemoglobin Sodium Potassium Chloride Carbon Dioxide BUN Creatinine Glucose POC Glucose 142 H Lactic Acid Calcium Phosphorus Magnesium AST ALT Lactate Dehydrogenase Total Bilirubin Direct Bilirubin CK-MB (CK-2) C-Reactive Protein NT-Pro-B Natriuret Pep Total Protein Albumin Arterial Blood Glucose Urine WBC (Auto) Urine Creatinine Digoxin 01/22/20 01/22/20 01/22/20 08:09 08:22 09:58 WBC RBC Hgb Hct MCHC RDW MCV MCH Lymph % (Auto) Holt % (Auto) Holt # Eos # Lymph # (Auto) Holt # (Auto) Eos # (Auto) Seg Neutrophils % Seg Neuts % (Manual) Baso # (Auto) Lymphocytes % (Manual) Monocytes % (Manual) Eosinophils % (Manual) Basophils % (Manual) Seg Neutrophils # Seg Neutrophils # Man Lymphocytes # (Manual) Monocytes # (Manual) Eosinophils # (Manual) Nucleated RBC % Basophils # (Manual) PT 16.9 H INR 1.34 H APTT Heparin Anti-Xa Level ABG pH POC ABG pO2 ABG pO2 ABG HCO3 ABG O2 Saturation ABG Base Excess POC ABG pCO2 ABG Hemoglobin ABG Oxyhemoglobin ABG Sodium ABG Chloride ABG Glucose Oxyhemoglobin Sodium Potassium Chloride 97.8 L Carbon Dioxide BUN 29 H Creatinine Glucose 128 H POC Glucose 131 H Lactic Acid Calcium Phosphorus Magnesium AST ALT Lactate Dehydrogenase Total Bilirubin Direct Bilirubin CK-MB (CK-2) C-Reactive Protein NT-Pro-B Natriuret Pep Total Protein Albumin Arterial Blood Glucose Urine WBC (Auto) Urine Creatinine Digoxin 01/22/20 01/22/20 01/22/20 12:44 16:13 18:18 WBC RBC Hgb Hct MCHC RDW MCV MCH Lymph % (Auto) Holt % (Auto) Holt # Eos # Lymph # (Auto) Holt # (Auto) Eos # (Auto) Seg Neutrophils % Seg Neuts % (Manual) Baso # (Auto) Lymphocytes % (Manual) Monocytes % (Manual) Eosinophils % (Manual) Basophils % (Manual) Seg Neutrophils # Seg Neutrophils # Man Lymphocytes # (Manual) Monocytes # (Manual) Eosinophils # (Manual) Nucleated RBC % Basophils # (Manual) PT INR APTT Heparin Anti-Xa Level ABG pH POC ABG pO2 ABG pO2 ABG HCO3 ABG O2 Saturation ABG Base Excess POC ABG pCO2 ABG Hemoglobin ABG Oxyhemoglobin ABG Sodium ABG Chloride ABG Glucose Oxyhemoglobin Sodium Potassium Chloride Carbon Dioxide BUN Creatinine Glucose POC Glucose 156 H 133 H 155 H Lactic Acid Calcium Phosphorus Magnesium AST ALT Lactate Dehydrogenase Total Bilirubin Direct Bilirubin CK-MB (CK-2) C-Reactive Protein NT-Pro-B Natriuret Pep Total Protein Albumin Arterial Blood Glucose Urine WBC (Auto) Urine Creatinine Digoxin 01/22/20 01/23/20 01/23/20 23:22 05:37 12:59 WBC RBC Hgb Hct MCHC RDW MCV MCH Lymph % (Auto) Holt % (Auto) Holt # Eos # Lymph # (Auto) Holt # (Auto) Eos # (Auto) Seg Neutrophils % Seg Neuts % (Manual) Baso # (Auto) Lymphocytes % (Manual) Monocytes % (Manual) Eosinophils % (Manual) Basophils % (Manual) Seg Neutrophils # Seg Neutrophils # Man Lymphocytes # (Manual) Monocytes # (Manual) Eosinophils # (Manual) Nucleated RBC % Basophils # (Manual) PT INR APTT Heparin Anti-Xa Level ABG pH POC ABG pO2 ABG pO2 ABG HCO3 ABG O2 Saturation ABG Base Excess POC ABG pCO2 ABG Hemoglobin ABG Oxyhemoglobin ABG Sodium ABG Chloride ABG Glucose Oxyhemoglobin Sodium Potassium Chloride Carbon Dioxide BUN Creatinine Glucose POC Glucose 148 H 163 H 175 H Lactic Acid Calcium Phosphorus Magnesium AST ALT Lactate Dehydrogenase Total Bilirubin Direct Bilirubin CK-MB (CK-2) C-Reactive Protein NT-Pro-B Natriuret Pep Total Protein Albumin Arterial Blood Glucose Urine WBC (Auto) Urine Creatinine Digoxin 01/23/20 01/23/20 01/24/20 17:28 23:56 04:30 WBC RBC 3.46 L Hgb 8.8 L Hct 27.8 L MCHC RDW 18.2 H MCV 81 L MCH 25 L Lymph % (Auto) Holt % (Auto) 7.8 H Holt # Eos # Lymph # (Auto) Holt # (Auto) Eos # (Auto) Seg Neutrophils % Seg Neuts % (Manual) Baso # (Auto) Lymphocytes % (Manual) Monocytes % (Manual) Eosinophils % (Manual) Basophils % (Manual) Seg Neutrophils # Seg Neutrophils # Man Lymphocytes # (Manual) Monocytes # (Manual) Eosinophils # (Manual) Nucleated RBC % Basophils # (Manual) PT INR APTT Heparin Anti-Xa Level ABG pH POC ABG pO2 ABG pO2 ABG HCO3 ABG O2 Saturation ABG Base Excess POC ABG pCO2 ABG Hemoglobin ABG Oxyhemoglobin ABG Sodium ABG Chloride ABG Glucose Oxyhemoglobin Sodium Potassium Chloride Carbon Dioxide BUN Creatinine Glucose POC Glucose 165 H 177 H Lactic Acid Calcium Phosphorus Magnesium AST ALT Lactate Dehydrogenase Total Bilirubin Direct Bilirubin CK-MB (CK-2) C-Reactive Protein NT-Pro-B Natriuret Pep Total Protein Albumin Arterial Blood Glucose Urine WBC (Auto) Urine Creatinine Digoxin 01/24/20 01/24/20 01/24/20 04:30 07:18 12:06 WBC RBC Hgb Hct MCHC RDW MCV MCH Lymph % (Auto) Holt % (Auto) Holt # Eos # Lymph # (Auto) Holt # (Auto) Eos # (Auto) Seg Neutrophils % Seg Neuts % (Manual) Baso # (Auto) Lymphocytes % (Manual) Monocytes % (Manual) Eosinophils % (Manual) Basophils % (Manual) Seg Neutrophils # Seg Neutrophils # Man Lymphocytes # (Manual) Monocytes # (Manual) Eosinophils # (Manual) Nucleated RBC % Basophils # (Manual) PT INR APTT Heparin Anti-Xa Level ABG pH POC ABG pO2 ABG pO2 ABG HCO3 ABG O2 Saturation ABG Base Excess POC ABG pCO2 ABG Hemoglobin ABG Oxyhemoglobin ABG Sodium ABG Chloride ABG Glucose Oxyhemoglobin Sodium Potassium Chloride 97.9 L Carbon Dioxide BUN 31 H Creatinine Glucose 146 H POC Glucose 151 H 133 H Lactic Acid Calcium Phosphorus Magnesium AST ALT Lactate Dehydrogenase Total Bilirubin Direct Bilirubin CK-MB (CK-2) C-Reactive Protein NT-Pro-B Natriuret Pep Total Protein Albumin Arterial Blood Glucose Urine WBC (Auto) Urine Creatinine Digoxin 01/24/20 01/25/20 01/25/20 17:36 00:08 04:25 WBC RBC 3.50 L Hgb 8.7 L Hct 27.9 L MCHC 31 L RDW 18.2 H MCV 80 L MCH 25 L Lymph % (Auto) Holt % (Auto) 8.5 H Holt # Eos # Lymph # (Auto) Holt # (Auto) Eos # (Auto) Seg Neutrophils % Seg Neuts % (Manual) Baso # (Auto) Lymphocytes % (Manual) Monocytes % (Manual) Eosinophils % (Manual) Basophils % (Manual) Seg Neutrophils # Seg Neutrophils # Man Lymphocytes # (Manual) Monocytes # (Manual) Eosinophils # (Manual) Nucleated RBC % Basophils # (Manual) PT INR APTT Heparin Anti-Xa Level ABG pH POC ABG pO2 ABG pO2 ABG HCO3 ABG O2 Saturation ABG Base Excess POC ABG pCO2 ABG Hemoglobin ABG Oxyhemoglobin ABG Sodium ABG Chloride ABG Glucose Oxyhemoglobin Sodium Potassium Chloride Carbon Dioxide BUN Creatinine Glucose POC Glucose 133 H 129 H Lactic Acid Calcium Phosphorus Magnesium AST ALT Lactate Dehydrogenase Total Bilirubin Direct Bilirubin CK-MB (CK-2) C-Reactive Protein NT-Pro-B Natriuret Pep Total Protein Albumin Arterial Blood Glucose Urine WBC (Auto) Urine Creatinine Digoxin 01/25/20 01/25/20 01/25/20 04:25 05:38 11:52 WBC RBC Hgb Hct MCHC RDW MCV MCH Lymph % (Auto) Holt % (Auto) Holt # Eos # Lymph # (Auto) Holt # (Auto) Eos # (Auto) Seg Neutrophils % Seg Neuts % (Manual) Baso # (Auto) Lymphocytes % (Manual) Monocytes % (Manual) Eosinophils % (Manual) Basophils % (Manual) Seg Neutrophils # Seg Neutrophils # Man Lymphocytes # (Manual) Monocytes # (Manual) Eosinophils # (Manual) Nucleated RBC % Basophils # (Manual) PT INR APTT Heparin Anti-Xa Level ABG pH POC ABG pO2 ABG pO2 ABG HCO3 ABG O2 Saturation ABG Base Excess POC ABG pCO2 ABG Hemoglobin ABG Oxyhemoglobin ABG Sodium ABG Chloride ABG Glucose Oxyhemoglobin Sodium Potassium Chloride Carbon Dioxide BUN 30 H Creatinine Glucose 134 H POC Glucose 129 H 134 H Lactic Acid Calcium Phosphorus Magnesium AST ALT Lactate Dehydrogenase Total Bilirubin Direct Bilirubin CK-MB (CK-2) C-Reactive Protein NT-Pro-B Natriuret Pep Total Protein Albumin Arterial Blood Glucose Urine WBC (Auto) Urine Creatinine Digoxin 01/25/20 01/25/20 01/26/20 17:13 21:02 00:59 WBC RBC Hgb Hct MCHC RDW MCV MCH Lymph % (Auto) Holt % (Auto) Holt # Eos # Lymph # (Auto) Holt # (Auto) Eos # (Auto) Seg Neutrophils % Seg Neuts % (Manual) Baso # (Auto) Lymphocytes % (Manual) Monocytes % (Manual) Eosinophils % (Manual) Basophils % (Manual) Seg Neutrophils # Seg Neutrophils # Man Lymphocytes # (Manual) Monocytes # (Manual) Eosinophils # (Manual) Nucleated RBC % Basophils # (Manual) PT INR APTT Heparin Anti-Xa Level ABG pH POC ABG pO2 ABG pO2 57.5 L ABG HCO3 31.7 H ABG O2 Saturation 90.3 L ABG Base Excess 6.6 H POC ABG pCO2 ABG Hemoglobin 13.0 L ABG Oxyhemoglobin ABG Sodium ABG Chloride ABG Glucose Oxyhemoglobin 87.5 L Sodium Potassium Chloride Carbon Dioxide BUN Creatinine Glucose POC Glucose 124 H 196 H Lactic Acid Calcium Phosphorus Magnesium AST ALT Lactate Dehydrogenase Total Bilirubin Direct Bilirubin CK-MB (CK-2) C-Reactive Protein NT-Pro-B Natriuret Pep Total Protein Albumin Arterial Blood Glucose Urine WBC (Auto) Urine Creatinine Digoxin 01/26/20 01/26/20 01/26/20 03:20 05:46 12:46 WBC RBC Hgb 9.2 L Hct 29.4 L MCHC RDW MCV MCH Lymph % (Auto) Holt % (Auto) Holt # Eos # Lymph # (Auto) Holt # (Auto) Eos # (Auto) Seg Neutrophils % Seg Neuts % (Manual) Baso # (Auto) Lymphocytes % (Manual) Monocytes % (Manual) Eosinophils % (Manual) Basophils % (Manual) Seg Neutrophils # Seg Neutrophils # Man Lymphocytes # (Manual) Monocytes # (Manual) Eosinophils # (Manual) Nucleated RBC % Basophils # (Manual) PT INR APTT Heparin Anti-Xa Level ABG pH POC ABG pO2 ABG pO2 ABG HCO3 ABG O2 Saturation ABG Base Excess POC ABG pCO2 ABG Hemoglobin ABG Oxyhemoglobin ABG Sodium ABG Chloride ABG Glucose Oxyhemoglobin Sodium Potassium Chloride Carbon Dioxide BUN Creatinine Glucose POC Glucose 141 H 122 H Lactic Acid Calcium Phosphorus Magnesium AST ALT Lactate Dehydrogenase Total Bilirubin Direct Bilirubin CK-MB (CK-2) C-Reactive Protein NT-Pro-B Natriuret Pep Total Protein Albumin Arterial Blood Glucose Urine WBC (Auto) Urine Creatinine Digoxin 01/26/20 01/26/20 01/27/20 18:03 23:55 04:47 WBC RBC Hgb Hct MCHC RDW MCV MCH Lymph % (Auto) Holt % (Auto) Holt # Eos # Lymph # (Auto) Holt # (Auto) Eos # (Auto) Seg Neutrophils % Seg Neuts % (Manual) Baso # (Auto) Lymphocytes % (Manual) Monocytes % (Manual) Eosinophils % (Manual) Basophils % (Manual) Seg Neutrophils # Seg Neutrophils # Man Lymphocytes # (Manual) Monocytes # (Manual) Eosinophils # (Manual) Nucleated RBC % Basophils # (Manual) PT INR APTT Heparin Anti-Xa Level ABG pH POC ABG pO2 ABG pO2 ABG HCO3 ABG O2 Saturation ABG Base Excess POC ABG pCO2 ABG Hemoglobin ABG Oxyhemoglobin ABG Sodium ABG Chloride ABG Glucose Oxyhemoglobin Sodium Potassium Chloride Carbon Dioxide BUN 30 H Creatinine 0.7 L Glucose 135 H POC Glucose 142 H 159 H Lactic Acid Calcium Phosphorus Magnesium AST ALT Lactate Dehydrogenase Total Bilirubin Direct Bilirubin CK-MB (CK-2) C-Reactive Protein NT-Pro-B Natriuret Pep Total Protein Albumin Arterial Blood Glucose Urine WBC (Auto) Urine Creatinine Digoxin 01/27/20 01/27/20 01/27/20 05:43 12:06 17:16 WBC RBC Hgb Hct MCHC RDW MCV MCH Lymph % (Auto) Holt % (Auto) Holt # Eos # Lymph # (Auto) Holt # (Auto) Eos # (Auto) Seg Neutrophils % Seg Neuts % (Manual) Baso # (Auto) Lymphocytes % (Manual) Monocytes % (Manual) Eosinophils % (Manual) Basophils % (Manual) Seg Neutrophils # Seg Neutrophils # Man Lymphocytes # (Manual) Monocytes # (Manual) Eosinophils # (Manual) Nucleated RBC % Basophils # (Manual) PT INR APTT Heparin Anti-Xa Level ABG pH POC ABG pO2 ABG pO2 ABG HCO3 ABG O2 Saturation ABG Base Excess POC ABG pCO2 ABG Hemoglobin ABG Oxyhemoglobin ABG Sodium ABG Chloride ABG Glucose Oxyhemoglobin Sodium Potassium Chloride Carbon Dioxide BUN Creatinine Glucose POC Glucose 143 H 142 H 128 H Lactic Acid Calcium Phosphorus Magnesium AST ALT Lactate Dehydrogenase Total Bilirubin Direct Bilirubin CK-MB (CK-2) C-Reactive Protein NT-Pro-B Natriuret Pep Total Protein Albumin Arterial Blood Glucose Urine WBC (Auto) Urine Creatinine Digoxin 01/27/20 01/28/20 01/28/20 23:55 04:37 05:55 WBC RBC Hgb 9.4 L Hct 29.9 L MCHC RDW MCV MCH Lymph % (Auto) Holt % (Auto) Holt # Eos # Lymph # (Auto) Holt # (Auto) Eos # (Auto) Seg Neutrophils % Seg Neuts % (Manual) Baso # (Auto) Lymphocytes % (Manual) Monocytes % (Manual) Eosinophils % (Manual) Basophils % (Manual) Seg Neutrophils # Seg Neutrophils # Man Lymphocytes # (Manual) Monocytes # (Manual) Eosinophils # (Manual) Nucleated RBC % Basophils # (Manual) PT INR APTT Heparin Anti-Xa Level ABG pH POC ABG pO2 ABG pO2 ABG HCO3 ABG O2 Saturation ABG Base Excess POC ABG pCO2 ABG Hemoglobin ABG Oxyhemoglobin ABG Sodium ABG Chloride ABG Glucose Oxyhemoglobin Sodium Potassium Chloride Carbon Dioxide BUN Creatinine Glucose POC Glucose 166 H 169 H Lactic Acid Calcium Phosphorus Magnesium AST ALT Lactate Dehydrogenase Total Bilirubin Direct Bilirubin CK-MB (CK-2) C-Reactive Protein NT-Pro-B Natriuret Pep Total Protein Albumin Arterial Blood Glucose Urine WBC (Auto) Urine Creatinine Digoxin 01/28/20 01/28/20 01/28/20 11:58 17:26 23:46 WBC RBC Hgb Hct MCHC RDW MCV MCH Lymph % (Auto) Holt % (Auto) Holt # Eos # Lymph # (Auto) Holt # (Auto) Eos # (Auto) Seg Neutrophils % Seg Neuts % (Manual) Baso # (Auto) Lymphocytes % (Manual) Monocytes % (Manual) Eosinophils % (Manual) Basophils % (Manual) Seg Neutrophils # Seg Neutrophils # Man Lymphocytes # (Manual) Monocytes # (Manual) Eosinophils # (Manual) Nucleated RBC % Basophils # (Manual) PT INR APTT Heparin Anti-Xa Level ABG pH POC ABG pO2 ABG pO2 ABG HCO3 ABG O2 Saturation ABG Base Excess POC ABG pCO2 ABG Hemoglobin ABG Oxyhemoglobin ABG Sodium ABG Chloride ABG Glucose Oxyhemoglobin Sodium Potassium Chloride Carbon Dioxide BUN Creatinine Glucose POC Glucose 130 H 126 H 150 H Lactic Acid Calcium Phosphorus Magnesium AST ALT Lactate Dehydrogenase Total Bilirubin Direct Bilirubin CK-MB (CK-2) C-Reactive Protein NT-Pro-B Natriuret Pep Total Protein Albumin Arterial Blood Glucose Urine WBC (Auto) Urine Creatinine Digoxin 01/29/20 01/29/20 01/29/20 04:55 06:00 12:28 WBC RBC Hgb Hct MCHC RDW MCV MCH Lymph % (Auto) Holt % (Auto) Holt # Eos # Lymph # (Auto) Holt # (Auto) Eos # (Auto) Seg Neutrophils % Seg Neuts % (Manual) Baso # (Auto) Lymphocytes % (Manual) Monocytes % (Manual) Eosinophils % (Manual) Basophils % (Manual) Seg Neutrophils # Seg Neutrophils # Man Lymphocytes # (Manual) Monocytes # (Manual) Eosinophils # (Manual) Nucleated RBC % Basophils # (Manual) PT INR APTT Heparin Anti-Xa Level ABG pH POC ABG pO2 ABG pO2 ABG HCO3 ABG O2 Saturation ABG Base Excess POC ABG pCO2 ABG Hemoglobin ABG Oxyhemoglobin ABG Sodium ABG Chloride ABG Glucose Oxyhemoglobin Sodium Potassium Chloride Carbon Dioxide 34 H BUN Creatinine 0.6 L Glucose 152 H POC Glucose 157 H 156 H Lactic Acid Calcium Phosphorus Magnesium AST ALT Lactate Dehydrogenase Total Bilirubin Direct Bilirubin CK-MB (CK-2) C-Reactive Protein NT-Pro-B Natriuret Pep Total Protein Albumin Arterial Blood Glucose Urine WBC (Auto) Urine Creatinine Digoxin 01/29/20 01/30/20 01/30/20 19:06 00:29 05:39 WBC RBC Hgb Hct MCHC RDW MCV MCH Lymph % (Auto) Holt % (Auto) Holt # Eos # Lymph # (Auto) Holt # (Auto) Eos # (Auto) Seg Neutrophils % Seg Neuts % (Manual) Baso # (Auto) Lymphocytes % (Manual) Monocytes % (Manual) Eosinophils % (Manual) Basophils % (Manual) Seg Neutrophils # Seg Neutrophils # Man Lymphocytes # (Manual) Monocytes # (Manual) Eosinophils # (Manual) Nucleated RBC % Basophils # (Manual) PT INR APTT Heparin Anti-Xa Level ABG pH POC ABG pO2 ABG pO2 ABG HCO3 ABG O2 Saturation ABG Base Excess POC ABG pCO2 ABG Hemoglobin ABG Oxyhemoglobin ABG Sodium ABG Chloride ABG Glucose Oxyhemoglobin Sodium Potassium Chloride Carbon Dioxide BUN Creatinine Glucose POC Glucose 152 H 132 H 159 H Lactic Acid Calcium Phosphorus Magnesium AST ALT Lactate Dehydrogenase Total Bilirubin Direct Bilirubin CK-MB (CK-2) C-Reactive Protein NT-Pro-B Natriuret Pep Total Protein Albumin Arterial Blood Glucose Urine WBC (Auto) Urine Creatinine Digoxin 01/30/20 01/30/20 01/30/20 12:27 17:42 23:28 WBC RBC Hgb Hct MCHC RDW MCV MCH Lymph % (Auto) Holt % (Auto) Holt # Eos # Lymph # (Auto) Holt # (Auto) Eos # (Auto) Seg Neutrophils % Seg Neuts % (Manual) Baso # (Auto) Lymphocytes % (Manual) Monocytes % (Manual) Eosinophils % (Manual) Basophils % (Manual) Seg Neutrophils # Seg Neutrophils # Man Lymphocytes # (Manual) Monocytes # (Manual) Eosinophils # (Manual) Nucleated RBC % Basophils # (Manual) PT INR APTT Heparin Anti-Xa Level ABG pH POC ABG pO2 ABG pO2 ABG HCO3 ABG O2 Saturation ABG Base Excess POC ABG pCO2 ABG Hemoglobin ABG Oxyhemoglobin ABG Sodium ABG Chloride ABG Glucose Oxyhemoglobin Sodium Potassium Chloride Carbon Dioxide BUN Creatinine Glucose POC Glucose 151 H 144 H 164 H Lactic Acid Calcium Phosphorus Magnesium AST ALT Lactate Dehydrogenase Total Bilirubin Direct Bilirubin CK-MB (CK-2) C-Reactive Protein NT-Pro-B Natriuret Pep Total Protein Albumin Arterial Blood Glucose Urine WBC (Auto) Urine Creatinine Digoxin 01/31/20 01/31/20 01/31/20 05:51 11:51 18:06 WBC RBC Hgb Hct MCHC RDW MCV MCH Lymph % (Auto) Holt % (Auto) Holt # Eos # Lymph # (Auto) Holt # (Auto) Eos # (Auto) Seg Neutrophils % Seg Neuts % (Manual) Baso # (Auto) Lymphocytes % (Manual) Monocytes % (Manual) Eosinophils % (Manual) Basophils % (Manual) Seg Neutrophils # Seg Neutrophils # Man Lymphocytes # (Manual) Monocytes # (Manual) Eosinophils # (Manual) Nucleated RBC % Basophils # (Manual) PT INR APTT Heparin Anti-Xa Level ABG pH POC ABG pO2 ABG pO2 ABG HCO3 ABG O2 Saturation ABG Base Excess POC ABG pCO2 ABG Hemoglobin ABG Oxyhemoglobin ABG Sodium ABG Chloride ABG Glucose Oxyhemoglobin Sodium Potassium Chloride Carbon Dioxide BUN Creatinine Glucose POC Glucose 131 H 167 H 210 H Lactic Acid Calcium Phosphorus Magnesium AST ALT Lactate Dehydrogenase Total Bilirubin Direct Bilirubin CK-MB (CK-2) C-Reactive Protein NT-Pro-B Natriuret Pep Total Protein Albumin Arterial Blood Glucose Urine WBC (Auto) Urine Creatinine Digoxin 01/31/20 01/31/20 02/01/20 19:24 Unknown 00:34 WBC RBC Hgb Hct MCHC RDW MCV MCH Lymph % (Auto) Holt % (Auto) Holt # Eos # Lymph # (Auto) Holt # (Auto) Eos # (Auto) Seg Neutrophils % Seg Neuts % (Manual) Baso # (Auto) Lymphocytes % (Manual) Monocytes % (Manual) Eosinophils % (Manual) Basophils % (Manual) Seg Neutrophils # Seg Neutrophils # Man Lymphocytes # (Manual) Monocytes # (Manual) Eosinophils # (Manual) Nucleated RBC % Basophils # (Manual) PT INR APTT Heparin Anti-Xa Level ABG pH POC ABG pO2 ABG pO2 ABG HCO3 ABG O2 Saturation ABG Base Excess POC ABG pCO2 ABG Hemoglobin ABG Oxyhemoglobin ABG Sodium ABG Chloride ABG Glucose Oxyhemoglobin Sodium Potassium Chloride 95.3 L Carbon Dioxide 33 H BUN 36 H Creatinine Glucose 187 H POC Glucose 116 H Lactic Acid Calcium Phosphorus Magnesium AST ALT Lactate Dehydrogenase Total Bilirubin Direct Bilirubin CK-MB (CK-2) C-Reactive Protein NT-Pro-B Natriuret Pep Total Protein Albumin Arterial Blood Glucose Urine WBC (Auto) Urine Creatinine 57.4 H Digoxin 02/01/20 02/01/20 02/01/20 05:24 10:40 12:29 WBC RBC Hgb Hct MCHC RDW MCV MCH Lymph % (Auto) Holt % (Auto) Holt # Eos # Lymph # (Auto) Holt # (Auto) Eos # (Auto) Seg Neutrophils % Seg Neuts % (Manual) Baso # (Auto) Lymphocytes % (Manual) Monocytes % (Manual) Eosinophils % (Manual) Basophils % (Manual) Seg Neutrophils # Seg Neutrophils # Man Lymphocytes # (Manual) Monocytes # (Manual) Eosinophils # (Manual) Nucleated RBC % Basophils # (Manual) PT INR APTT Heparin Anti-Xa Level ABG pH POC ABG pO2 ABG pO2 ABG HCO3 ABG O2 Saturation ABG Base Excess POC ABG pCO2 ABG Hemoglobin ABG Oxyhemoglobin ABG Sodium ABG Chloride ABG Glucose Oxyhemoglobin Sodium Potassium Chloride Carbon Dioxide BUN Creatinine Glucose POC Glucose 142 H 165 H 151 H Lactic Acid Calcium Phosphorus Magnesium AST ALT Lactate Dehydrogenase Total Bilirubin Direct Bilirubin CK-MB (CK-2) C-Reactive Protein NT-Pro-B Natriuret Pep Total Protein Albumin Arterial Blood Glucose Urine WBC (Auto) Urine Creatinine Digoxin 02/01/20 02/01/20 02/02/20 17:16 23:23 06:36 WBC RBC Hgb Hct MCHC RDW MCV MCH Lymph % (Auto) Holt % (Auto) Holt # Eos # Lymph # (Auto) Holt # (Auto) Eos # (Auto) Seg Neutrophils % Seg Neuts % (Manual) Baso # (Auto) Lymphocytes % (Manual) Monocytes % (Manual) Eosinophils % (Manual) Basophils % (Manual) Seg Neutrophils # Seg Neutrophils # Man Lymphocytes # (Manual) Monocytes # (Manual) Eosinophils # (Manual) Nucleated RBC % Basophils # (Manual) PT INR APTT Heparin Anti-Xa Level ABG pH POC ABG pO2 ABG pO2 ABG HCO3 ABG O2 Saturation ABG Base Excess POC ABG pCO2 ABG Hemoglobin ABG Oxyhemoglobin ABG Sodium ABG Chloride ABG Glucose Oxyhemoglobin Sodium Potassium Chloride Carbon Dioxide BUN Creatinine Glucose POC Glucose 137 H 145 H 181 H Lactic Acid Calcium Phosphorus Magnesium AST ALT Lactate Dehydrogenase Total Bilirubin Direct Bilirubin CK-MB (CK-2) C-Reactive Protein NT-Pro-B Natriuret Pep Total Protein Albumin Arterial Blood Glucose Urine WBC (Auto) Urine Creatinine Digoxin 02/02/20 02/02/20 02/02/20 10:01 12:05 17:54 WBC RBC Hgb Hct MCHC RDW MCV MCH Lymph % (Auto) Holt % (Auto) Holt # Eos # Lymph # (Auto) Holt # (Auto) Eos # (Auto) Seg Neutrophils % Seg Neuts % (Manual) Baso # (Auto) Lymphocytes % (Manual) Monocytes % (Manual) Eosinophils % (Manual) Basophils % (Manual) Seg Neutrophils # Seg Neutrophils # Man Lymphocytes # (Manual) Monocytes # (Manual) Eosinophils # (Manual) Nucleated RBC % Basophils # (Manual) PT INR APTT Heparin Anti-Xa Level ABG pH POC ABG pO2 ABG pO2 ABG HCO3 ABG O2 Saturation ABG Base Excess POC ABG pCO2 ABG Hemoglobin ABG Oxyhemoglobin ABG Sodium ABG Chloride ABG Glucose Oxyhemoglobin Sodium Potassium Chloride 95.3 L Carbon Dioxide BUN 44 H Creatinine Glucose 234 H POC Glucose 184 H 127 H Lactic Acid Calcium Phosphorus Magnesium AST 363 H ALT 457 H Lactate Dehydrogenase Total Bilirubin Direct Bilirubin CK-MB (CK-2) C-Reactive Protein NT-Pro-B Natriuret Pep Total Protein Albumin 3.0 L Arterial Blood Glucose Urine WBC (Auto) Urine Creatinine Digoxin 02/02/20 02/03/20 02/03/20 23:47 05:32 07:04 WBC 13.0 H RBC Hgb 9.5 L Hct 30.8 L MCHC 31 L RDW 19.6 H MCV 81 L MCH 25 L Lymph % (Auto) Holt % (Auto) 9.4 H Holt # Eos # Lymph # (Auto) Holt # (Auto) 1.2 H Eos # (Auto) Seg Neutrophils % 72.3 H Seg Neuts % (Manual) Baso # (Auto) Lymphocytes % (Manual) Monocytes % (Manual) Eosinophils % (Manual) Basophils % (Manual) Seg Neutrophils # 9.4 H Seg Neutrophils # Man Lymphocytes # (Manual) Monocytes # (Manual) Eosinophils # (Manual) Nucleated RBC % Basophils # (Manual) PT INR APTT Heparin Anti-Xa Level ABG pH POC ABG pO2 ABG pO2 ABG HCO3 ABG O2 Saturation ABG Base Excess POC ABG pCO2 ABG Hemoglobin ABG Oxyhemoglobin ABG Sodium ABG Chloride ABG Glucose Oxyhemoglobin Sodium Potassium Chloride Carbon Dioxide BUN Creatinine Glucose POC Glucose 124 H 129 H Lactic Acid Calcium Phosphorus Magnesium AST ALT Lactate Dehydrogenase Total Bilirubin Direct Bilirubin CK-MB (CK-2) C-Reactive Protein NT-Pro-B Natriuret Pep Total Protein Albumin Arterial Blood Glucose Urine WBC (Auto) Urine Creatinine Digoxin 02/03/20 02/03/20 02/03/20 07:04 11:32 12:49 WBC RBC Hgb Hct MCHC RDW MCV MCH Lymph % (Auto) Holt % (Auto) Holt # Eos # Lymph # (Auto) Holt # (Auto) Eos # (Auto) Seg Neutrophils % Seg Neuts % (Manual) Baso # (Auto) Lymphocytes % (Manual) Monocytes % (Manual) Eosinophils % (Manual) Basophils % (Manual) Seg Neutrophils # Seg Neutrophils # Man Lymphocytes # (Manual) Monocytes # (Manual) Eosinophils # (Manual) Nucleated RBC % Basophils # (Manual) PT INR APTT Heparin Anti-Xa Level ABG pH POC ABG pO2 ABG pO2 ABG HCO3 ABG O2 Saturation ABG Base Excess POC ABG pCO2 ABG Hemoglobin ABG Oxyhemoglobin ABG Sodium ABG Chloride ABG Glucose Oxyhemoglobin Sodium Potassium Chloride 97.9 L Carbon Dioxide 33 H BUN 39 H Creatinine Glucose 119 H POC Glucose 138 H Lactic Acid Calcium Phosphorus Magnesium 2.60 H AST ALT Lactate Dehydrogenase Total Bilirubin Direct Bilirubin CK-MB (CK-2) C-Reactive Protein NT-Pro-B Natriuret Pep Total Protein Albumin Arterial Blood Glucose Urine WBC (Auto) Urine Creatinine Digoxin 02/03/20 02/04/20 02/04/20 18:28 16:24 16:24 WBC RBC 3.38 L Hgb 8.6 L Hct 26.9 L MCHC RDW 19.5 H MCV 80 L MCH 26 L Lymph % (Auto) Holt % (Auto) Holt # Eos # Lymph # (Auto) Holt # (Auto) Eos # (Auto) Seg Neutrophils % Seg Neuts % (Manual) Baso # (Auto) Lymphocytes % (Manual) Monocytes % (Manual) Eosinophils % (Manual) Basophils % (Manual) Seg Neutrophils # Seg Neutrophils # Man Lymphocytes # (Manual) Monocytes # (Manual) Eosinophils # (Manual) Nucleated RBC % Basophils # (Manual) PT INR APTT Heparin Anti-Xa Level ABG pH POC ABG pO2 ABG pO2 ABG HCO3 ABG O2 Saturation ABG Base Excess POC ABG pCO2 ABG Hemoglobin ABG Oxyhemoglobin ABG Sodium ABG Chloride ABG Glucose Oxyhemoglobin Sodium Potassium 3.4 L Chloride Carbon Dioxide 31 H BUN 37 H Creatinine Glucose 70 L POC Glucose 118 H Lactic Acid Calcium Phosphorus Magnesium AST 169 H ALT 394 H Lactate Dehydrogenase Total Bilirubin 1.50 H Direct Bilirubin CK-MB (CK-2) C-Reactive Protein NT-Pro-B Natriuret Pep Total Protein Albumin 2.9 L Arterial Blood Glucose Urine WBC (Auto) Urine Creatinine Digoxin 02/05/20 02/05/20 02/05/20 00:41 06:37 17:14 WBC RBC Hgb Hct MCHC RDW MCV MCH Lymph % (Auto) Holt % (Auto) Holt # Eos # Lymph # (Auto) Holt # (Auto) Eos # (Auto) Seg Neutrophils % Seg Neuts % (Manual) Baso # (Auto) Lymphocytes % (Manual) Monocytes % (Manual) Eosinophils % (Manual) Basophils % (Manual) Seg Neutrophils # Seg Neutrophils # Man Lymphocytes # (Manual) Monocytes # (Manual) Eosinophils # (Manual) Nucleated RBC % Basophils # (Manual) PT INR APTT Heparin Anti-Xa Level ABG pH POC ABG pO2 ABG pO2 ABG HCO3 ABG O2 Saturation ABG Base Excess POC ABG pCO2 ABG Hemoglobin ABG Oxyhemoglobin ABG Sodium ABG Chloride ABG Glucose Oxyhemoglobin Sodium Potassium 3.1 L Chloride Carbon Dioxide 35 H BUN 32 H Creatinine 0.7 L Glucose POC Glucose 69 L 127 H Lactic Acid Calcium Phosphorus Magnesium AST 134 H ALT 352 H Lactate Dehydrogenase Total Bilirubin 1.60 H Direct Bilirubin CK-MB (CK-2) C-Reactive Protein NT-Pro-B Natriuret Pep Total Protein Albumin 2.9 L Arterial Blood Glucose Urine WBC (Auto) Urine Creatinine Digoxin 02/05/20 02/06/20 02/06/20 23:43 05:32 08:01 WBC RBC Hgb Hct MCHC RDW MCV MCH Lymph % (Auto) Holt % (Auto) Holt # Eos # Lymph # (Auto) Holt # (Auto) Eos # (Auto) Seg Neutrophils % Seg Neuts % (Manual) Baso # (Auto) Lymphocytes % (Manual) Monocytes % (Manual) Eosinophils % (Manual) Basophils % (Manual) Seg Neutrophils # Seg Neutrophils # Man Lymphocytes # (Manual) Monocytes # (Manual) Eosinophils # (Manual) Nucleated RBC % Basophils # (Manual) PT INR APTT Heparin Anti-Xa Level ABG pH POC ABG pO2 ABG pO2 ABG HCO3 ABG O2 Saturation ABG Base Excess POC ABG pCO2 ABG Hemoglobin ABG Oxyhemoglobin ABG Sodium ABG Chloride ABG Glucose Oxyhemoglobin Sodium Potassium Chloride Carbon Dioxide BUN 40 H Creatinine Glucose 132 H POC Glucose 129 H 131 H Lactic Acid Calcium Phosphorus Magnesium AST ALT Lactate Dehydrogenase Total Bilirubin Direct Bilirubin CK-MB (CK-2) C-Reactive Protein NT-Pro-B Natriuret Pep Total Protein Albumin Arterial Blood Glucose Urine WBC (Auto) Urine Creatinine Digoxin 02/06/20 02/06/20 02/06/20 11:51 16:28 17:32 WBC RBC Hgb Hct MCHC RDW MCV MCH Lymph % (Auto) Holt % (Auto) Holt # Eos # Lymph # (Auto) Holt # (Auto) Eos # (Auto) Seg Neutrophils % Seg Neuts % (Manual) Baso # (Auto) Lymphocytes % (Manual) Monocytes % (Manual) Eosinophils % (Manual) Basophils % (Manual) Seg Neutrophils # Seg Neutrophils # Man Lymphocytes # (Manual) Monocytes # (Manual) Eosinophils # (Manual) Nucleated RBC % Basophils # (Manual) PT INR APTT Heparin Anti-Xa Level ABG pH POC ABG pO2 ABG pO2 ABG HCO3 ABG O2 Saturation ABG Base Excess POC ABG pCO2 ABG Hemoglobin ABG Oxyhemoglobin ABG Sodium ABG Chloride ABG Glucose Oxyhemoglobin Sodium Potassium Chloride Carbon Dioxide BUN Creatinine Glucose POC Glucose 167 H 129 H Lactic Acid Calcium Phosphorus Magnesium AST 824 H ALT 948 H Lactate Dehydrogenase Total Bilirubin 1.70 H Direct Bilirubin 1.2 H CK-MB (CK-2) C-Reactive Protein NT-Pro-B Natriuret Pep Total Protein Albumin 2.9 L Arterial Blood Glucose Urine WBC (Auto) Urine Creatinine Digoxin 02/07/20 02/07/20 02/07/20 00:11 04:57 04:57 WBC RBC Hgb 9.2 L Hct 29.7 L MCHC 31 L RDW 20.2 H MCV 80 L MCH 25 L Lymph % (Auto) Holt % (Auto) Holt # Eos # Lymph # (Auto) Holt # (Auto) Eos # (Auto) Seg Neutrophils % Seg Neuts % (Manual) Baso # (Auto) Lymphocytes % (Manual) Monocytes % (Manual) Eosinophils % (Manual) Basophils % (Manual) Seg Neutrophils # Seg Neutrophils # Man Lymphocytes # (Manual) Monocytes # (Manual) Eosinophils # (Manual) Nucleated RBC % Basophils # (Manual) PT INR APTT Heparin Anti-Xa Level ABG pH POC ABG pO2 ABG pO2 ABG HCO3 ABG O2 Saturation ABG Base Excess POC ABG pCO2 ABG Hemoglobin ABG Oxyhemoglobin ABG Sodium ABG Chloride ABG Glucose Oxyhemoglobin Sodium Potassium 3.4 L D Chloride Carbon Dioxide 32 H BUN 39 H Creatinine Glucose 106 H POC Glucose 121 H Lactic Acid Calcium Phosphorus Magnesium AST ALT Lactate Dehydrogenase Total Bilirubin Direct Bilirubin CK-MB (CK-2) C-Reactive Protein NT-Pro-B Natriuret Pep Total Protein Albumin Arterial Blood Glucose Urine WBC (Auto) Urine Creatinine Digoxin 02/07/20 02/07/20 02/07/20 15:03 15:03 17:11 WBC RBC Hgb Hct MCHC RDW MCV MCH Lymph % (Auto) Holt % (Auto) Holt # Eos # Lymph # (Auto) Holt # (Auto) Eos # (Auto) Seg Neutrophils % Seg Neuts % (Manual) Baso # (Auto) Lymphocytes % (Manual) Monocytes % (Manual) Eosinophils % (Manual) Basophils % (Manual) Seg Neutrophils # Seg Neutrophils # Man Lymphocytes # (Manual) Monocytes # (Manual) Eosinophils # (Manual) Nucleated RBC % Basophils # (Manual) PT 27.0 H INR 2.46 H APTT Heparin Anti-Xa Level ABG pH POC ABG pO2 ABG pO2 ABG HCO3 ABG O2 Saturation ABG Base Excess POC ABG pCO2 ABG Hemoglobin ABG Oxyhemoglobin ABG Sodium ABG Chloride ABG Glucose Oxyhemoglobin Sodium Potassium Chloride Carbon Dioxide BUN Creatinine Glucose POC Glucose 109 H Lactic Acid Calcium Phosphorus Magnesium AST 424 H ALT 796 H Lactate Dehydrogenase Total Bilirubin 1.60 H Direct Bilirubin 1.2 H CK-MB (CK-2) C-Reactive Protein NT-Pro-B Natriuret Pep Total Protein Albumin 2.9 L Arterial Blood Glucose Urine WBC (Auto) Urine Creatinine Digoxin 02/08/20 02/08/20 02/08/20 12:14 17:44 19:00 WBC RBC Hgb Hct MCHC RDW MCV MCH Lymph % (Auto) Holt % (Auto) Holt # Eos # Lymph # (Auto) Holt # (Auto) Eos # (Auto) Seg Neutrophils % Seg Neuts % (Manual) Baso # (Auto) Lymphocytes % (Manual) Monocytes % (Manual) Eosinophils % (Manual) Basophils % (Manual) Seg Neutrophils # Seg Neutrophils # Man Lymphocytes # (Manual) Monocytes # (Manual) Eosinophils # (Manual) Nucleated RBC % Basophils # (Manual) PT INR APTT Heparin Anti-Xa Level ABG pH POC ABG pO2 ABG pO2 ABG HCO3 ABG O2 Saturation ABG Base Excess POC ABG pCO2 ABG Hemoglobin ABG Oxyhemoglobin ABG Sodium ABG Chloride ABG Glucose Oxyhemoglobin Sodium Potassium Chloride Carbon Dioxide BUN Creatinine Glucose POC Glucose 111 H 107 H Lactic Acid Calcium Phosphorus Magnesium AST 309 H ALT 650 H Lactate Dehydrogenase Total Bilirubin 1.30 H Direct Bilirubin 0.9 H CK-MB (CK-2) C-Reactive Protein NT-Pro-B Natriuret Pep Total Protein 6.2 L Albumin 2.7 L Arterial Blood Glucose Urine WBC (Auto) Urine Creatinine Digoxin 02/09/20 02/09/20 02/09/20 05:41 12:28 18:07 WBC RBC Hgb Hct MCHC RDW MCV MCH Lymph % (Auto) Holt % (Auto) Holt # Eos # Lymph # (Auto) Holt # (Auto) Eos # (Auto) Seg Neutrophils % Seg Neuts % (Manual) Baso # (Auto) Lymphocytes % (Manual) Monocytes % (Manual) Eosinophils % (Manual) Basophils % (Manual) Seg Neutrophils # Seg Neutrophils # Man Lymphocytes # (Manual) Monocytes # (Manual) Eosinophils # (Manual) Nucleated RBC % Basophils # (Manual) PT INR APTT Heparin Anti-Xa Level ABG pH POC ABG pO2 ABG pO2 ABG HCO3 ABG O2 Saturation ABG Base Excess POC ABG pCO2 ABG Hemoglobin ABG Oxyhemoglobin ABG Sodium ABG Chloride ABG Glucose Oxyhemoglobin Sodium Potassium Chloride Carbon Dioxide BUN Creatinine Glucose POC Glucose 113 H 140 H 143 H Lactic Acid Calcium Phosphorus Magnesium AST ALT Lactate Dehydrogenase Total Bilirubin Direct Bilirubin CK-MB (CK-2) C-Reactive Protein NT-Pro-B Natriuret Pep Total Protein Albumin Arterial Blood Glucose Urine WBC (Auto) Urine Creatinine Digoxin 02/09/20 02/09/20 02/10/20 21:40 23:45 06:00 WBC RBC Hgb Hct MCHC RDW MCV MCH Lymph % (Auto) Holt % (Auto) Holt # Eos # Lymph # (Auto) Holt # (Auto) Eos # (Auto) Seg Neutrophils % Seg Neuts % (Manual) Baso # (Auto) Lymphocytes % (Manual) Monocytes % (Manual) Eosinophils % (Manual) Basophils % (Manual) Seg Neutrophils # Seg Neutrophils # Man Lymphocytes # (Manual) Monocytes # (Manual) Eosinophils # (Manual) Nucleated RBC % Basophils # (Manual) PT INR APTT Heparin Anti-Xa Level ABG pH POC ABG pO2 ABG pO2 59.8 L ABG HCO3 33.3 H ABG O2 Saturation 88.9 L ABG Base Excess 7.4 H POC ABG pCO2 ABG Hemoglobin 10.4 L ABG Oxyhemoglobin ABG Sodium ABG Chloride ABG Glucose Oxyhemoglobin 86.3 L Sodium Potassium Chloride Carbon Dioxide BUN Creatinine Glucose POC Glucose 127 H 114 H Lactic Acid Calcium Phosphorus Magnesium AST ALT Lactate Dehydrogenase Total Bilirubin Direct Bilirubin CK-MB (CK-2) C-Reactive Protein NT-Pro-B Natriuret Pep Total Protein Albumin Arterial Blood Glucose Urine WBC (Auto) Urine Creatinine Digoxin 02/10/20 02/10/20 02/10/20 07:40 07:40 13:38 WBC 11.5 H RBC Hgb 10.6 L Hct 34.7 L MCHC 31 L RDW 19.8 H MCV 79 L MCH 24 L Lymph % (Auto) Holt % (Auto) 9.2 H Holt # Eos # Lymph # (Auto) Holt # (Auto) 1.1 H Eos # (Auto) Seg Neutrophils % Seg Neuts % (Manual) Baso # (Auto) Lymphocytes % (Manual) Monocytes % (Manual) Eosinophils % (Manual) Basophils % (Manual) Seg Neutrophils # Seg Neutrophils # Man Lymphocytes # (Manual) Monocytes # (Manual) Eosinophils # (Manual) Nucleated RBC % Basophils # (Manual) PT INR APTT Heparin Anti-Xa Level ABG pH POC ABG pO2 ABG pO2 ABG HCO3 ABG O2 Saturation ABG Base Excess POC ABG pCO2 ABG Hemoglobin ABG Oxyhemoglobin ABG Sodium ABG Chloride ABG Glucose Oxyhemoglobin Sodium 151 H Potassium Chloride 107.2 H Carbon Dioxide 36 H BUN 25 H Creatinine 0.7 L Glucose 114 H POC Glucose 116 H Lactic Acid Calcium Phosphorus Magnesium 2.40 H AST ALT Lactate Dehydrogenase Total Bilirubin Direct Bilirubin CK-MB (CK-2) C-Reactive Protein NT-Pro-B Natriuret Pep Total Protein Albumin Arterial Blood Glucose Urine WBC (Auto) Urine Creatinine Digoxin 02/10/20 02/11/20 02/11/20 17:44 05:47 12:21 WBC RBC Hgb Hct MCHC RDW MCV MCH Lymph % (Auto) Holt % (Auto) Holt # Eos # Lymph # (Auto) Holt # (Auto) Eos # (Auto) Seg Neutrophils % Seg Neuts % (Manual) Baso # (Auto) Lymphocytes % (Manual) Monocytes % (Manual) Eosinophils % (Manual) Basophils % (Manual) Seg Neutrophils # Seg Neutrophils # Man Lymphocytes # (Manual) Monocytes # (Manual) Eosinophils # (Manual) Nucleated RBC % Basophils # (Manual) PT INR APTT Heparin Anti-Xa Level ABG pH POC ABG pO2 ABG pO2 ABG HCO3 ABG O2 Saturation ABG Base Excess POC ABG pCO2 ABG Hemoglobin ABG Oxyhemoglobin ABG Sodium ABG Chloride ABG Glucose Oxyhemoglobin Sodium Potassium Chloride Carbon Dioxide BUN Creatinine Glucose POC Glucose 139 H 173 H 143 H Lactic Acid Calcium Phosphorus Magnesium AST ALT Lactate Dehydrogenase Total Bilirubin Direct Bilirubin CK-MB (CK-2) C-Reactive Protein NT-Pro-B Natriuret Pep Total Protein Albumin Arterial Blood Glucose Urine WBC (Auto) Urine Creatinine Digoxin 02/11/20 02/11/20 02/12/20 13:43 14:11 00:15 WBC RBC Hgb Hct MCHC RDW MCV MCH Lymph % (Auto) Holt % (Auto) Holt # Eos # Lymph # (Auto) Holt # (Auto) Eos # (Auto) Seg Neutrophils % Seg Neuts % (Manual) Baso # (Auto) Lymphocytes % (Manual) Monocytes % (Manual) Eosinophils % (Manual) Basophils % (Manual) Seg Neutrophils # Seg Neutrophils # Man Lymphocytes # (Manual) Monocytes # (Manual) Eosinophils # (Manual) Nucleated RBC % Basophils # (Manual) PT INR APTT Heparin Anti-Xa Level ABG pH 7.502 H POC ABG pO2 77.7 L ABG pO2 ABG HCO3 ABG O2 Saturation ABG Base Excess POC ABG pCO2 ABG Hemoglobin 11.1 L ABG Oxyhemoglobin ABG Sodium ABG Chloride 108.0 H ABG Glucose 151 H Oxyhemoglobin Sodium Potassium Chloride Carbon Dioxide BUN Creatinine Glucose POC Glucose 130 H 125 H Lactic Acid Calcium Phosphorus Magnesium AST ALT Lactate Dehydrogenase Total Bilirubin Direct Bilirubin CK-MB (CK-2) C-Reactive Protein NT-Pro-B Natriuret Pep Total Protein Albumin Arterial Blood Glucose 151 H Urine WBC (Auto) Urine Creatinine Digoxin 02/12/20 02/12/20 02/12/20 04:56 04:56 17:42 WBC RBC Hgb 9.9 L Hct 31.8 L MCHC 31 L RDW 19.4 H MCV 79 L MCH 25 L Lymph % (Auto) Holt % (Auto) 10.3 H Holt # Eos # Lymph # (Auto) Holt # (Auto) 1.0 H Eos # (Auto) Seg Neutrophils % Seg Neuts % (Manual) Baso # (Auto) Lymphocytes % (Manual) Monocytes % (Manual) Eosinophils % (Manual) Basophils % (Manual) Seg Neutrophils # Seg Neutrophils # Man Lymphocytes # (Manual) Monocytes # (Manual) Eosinophils # (Manual) Nucleated RBC % Basophils # (Manual) PT INR APTT Heparin Anti-Xa Level ABG pH POC ABG pO2 ABG pO2 ABG HCO3 ABG O2 Saturation ABG Base Excess POC ABG pCO2 ABG Hemoglobin ABG Oxyhemoglobin ABG Sodium ABG Chloride ABG Glucose Oxyhemoglobin Sodium 149 H Potassium Chloride 108.6 H Carbon Dioxide BUN 28 H Creatinine 0.7 L Glucose 108 H POC Glucose 113 H Lactic Acid Calcium Phosphorus Magnesium AST ALT Lactate Dehydrogenase Total Bilirubin Direct Bilirubin CK-MB (CK-2) C-Reactive Protein NT-Pro-B Natriuret Pep Total Protein Albumin Arterial Blood Glucose Urine WBC (Auto) Urine Creatinine Digoxin 02/13/20 02/13/20 02/13/20 00:39 05:36 12:25 WBC RBC Hgb Hct MCHC RDW MCV MCH Lymph % (Auto) Holt % (Auto) Holt # Eos # Lymph # (Auto) Holt # (Auto) Eos # (Auto) Seg Neutrophils % Seg Neuts % (Manual) Baso # (Auto) Lymphocytes % (Manual) Monocytes % (Manual) Eosinophils % (Manual) Basophils % (Manual) Seg Neutrophils # Seg Neutrophils # Man Lymphocytes # (Manual) Monocytes # (Manual) Eosinophils # (Manual) Nucleated RBC % Basophils # (Manual) PT INR APTT Heparin Anti-Xa Level ABG pH POC ABG pO2 ABG pO2 ABG HCO3 ABG O2 Saturation ABG Base Excess POC ABG pCO2 ABG Hemoglobin ABG Oxyhemoglobin ABG Sodium ABG Chloride ABG Glucose Oxyhemoglobin Sodium Potassium Chloride Carbon Dioxide BUN Creatinine Glucose POC Glucose 129 H 126 H 129 H Lactic Acid Calcium Phosphorus Magnesium AST ALT Lactate Dehydrogenase Total Bilirubin Direct Bilirubin CK-MB (CK-2) C-Reactive Protein NT-Pro-B Natriuret Pep Total Protein Albumin Arterial Blood Glucose Urine WBC (Auto) Urine Creatinine Digoxin 02/13/20 02/14/20 02/14/20 17:59 00:15 05:41 WBC RBC Hgb Hct MCHC RDW MCV MCH Lymph % (Auto) Holt % (Auto) Holt # Eos # Lymph # (Auto) Holt # (Auto) Eos # (Auto) Seg Neutrophils % Seg Neuts % (Manual) Baso # (Auto) Lymphocytes % (Manual) Monocytes % (Manual) Eosinophils % (Manual) Basophils % (Manual) Seg Neutrophils # Seg Neutrophils # Man Lymphocytes # (Manual) Monocytes # (Manual) Eosinophils # (Manual) Nucleated RBC % Basophils # (Manual) PT INR APTT Heparin Anti-Xa Level ABG pH POC ABG pO2 ABG pO2 ABG HCO3 ABG O2 Saturation ABG Base Excess POC ABG pCO2 ABG Hemoglobin ABG Oxyhemoglobin ABG Sodium ABG Chloride ABG Glucose Oxyhemoglobin Sodium Potassium Chloride Carbon Dioxide BUN Creatinine Glucose POC Glucose 153 H 130 H 130 H Lactic Acid Calcium Phosphorus Magnesium AST ALT Lactate Dehydrogenase Total Bilirubin Direct Bilirubin CK-MB (CK-2) C-Reactive Protein NT-Pro-B Natriuret Pep Total Protein Albumin Arterial Blood Glucose Urine WBC (Auto) Urine Creatinine Digoxin 02/14/20 02/15/20 02/15/20 11:32 00:12 05:27 WBC RBC Hgb Hct MCHC RDW MCV MCH Lymph % (Auto) Holt % (Auto) Holt # Eos # Lymph # (Auto) Holt # (Auto) Eos # (Auto) Seg Neutrophils % Seg Neuts % (Manual) Baso # (Auto) Lymphocytes % (Manual) Monocytes % (Manual) Eosinophils % (Manual) Basophils % (Manual) Seg Neutrophils # Seg Neutrophils # Man Lymphocytes # (Manual) Monocytes # (Manual) Eosinophils # (Manual) Nucleated RBC % Basophils # (Manual) PT INR APTT Heparin Anti-Xa Level ABG pH POC ABG pO2 ABG pO2 ABG HCO3 ABG O2 Saturation ABG Base Excess POC ABG pCO2 ABG Hemoglobin ABG Oxyhemoglobin ABG Sodium ABG Chloride ABG Glucose Oxyhemoglobin Sodium Potassium Chloride Carbon Dioxide BUN Creatinine Glucose POC Glucose 157 H 124 H 111 H Lactic Acid Calcium Phosphorus Magnesium AST ALT Lactate Dehydrogenase Total Bilirubin Direct Bilirubin CK-MB (CK-2) C-Reactive Protein NT-Pro-B Natriuret Pep Total Protein Albumin Arterial Blood Glucose Urine WBC (Auto) Urine Creatinine Digoxin 02/15/20 02/15/20 02/15/20 06:59 06:59 11:14 WBC RBC Hgb 10.4 L Hct 33.7 L MCHC 31 L RDW 19.4 H MCV 80 L MCH 24 L Lymph % (Auto) Holt % (Auto) Holt # Eos # Lymph # (Auto) Holt # (Auto) Eos # (Auto) Seg Neutrophils % Seg Neuts % (Manual) Baso # (Auto) Lymphocytes % (Manual) Monocytes % (Manual) Eosinophils % (Manual) Basophils % (Manual) 2.0 H Seg Neutrophils # Seg Neutrophils # Man Lymphocytes # (Manual) Monocytes # (Manual) Eosinophils # (Manual) Nucleated RBC % 1.0 H Basophils # (Manual) 0.2 H PT INR APTT Heparin Anti-Xa Level ABG pH POC ABG pO2 ABG pO2 ABG HCO3 ABG O2 Saturation ABG Base Excess POC ABG pCO2 ABG Hemoglobin ABG Oxyhemoglobin ABG Sodium ABG Chloride ABG Glucose Oxyhemoglobin Sodium 149 H Potassium Chloride 108.4 H Carbon Dioxide 31 H BUN 40 H Creatinine 0.7 L Glucose 150 H POC Glucose 128 H Lactic Acid Calcium Phosphorus Magnesium AST ALT Lactate Dehydrogenase Total Bilirubin Direct Bilirubin CK-MB (CK-2) C-Reactive Protein NT-Pro-B Natriuret Pep Total Protein Albumin Arterial Blood Glucose Urine WBC (Auto) Urine Creatinine Digoxin 02/15/20 02/15/20 02/16/20 17:46 23:50 05:03 WBC RBC Hgb Hct MCHC RDW MCV MCH Lymph % (Auto) Holt % (Auto) Holt # Eos # Lymph # (Auto) Holt # (Auto) Eos # (Auto) Seg Neutrophils % Seg Neuts % (Manual) Baso # (Auto) Lymphocytes % (Manual) Monocytes % (Manual) Eosinophils % (Manual) Basophils % (Manual) Seg Neutrophils # Seg Neutrophils # Man Lymphocytes # (Manual) Monocytes # (Manual) Eosinophils # (Manual) Nucleated RBC % Basophils # (Manual) PT INR APTT Heparin Anti-Xa Level ABG pH POC ABG pO2 ABG pO2 ABG HCO3 ABG O2 Saturation ABG Base Excess POC ABG pCO2 ABG Hemoglobin ABG Oxyhemoglobin ABG Sodium ABG Chloride ABG Glucose Oxyhemoglobin Sodium Potassium Chloride Carbon Dioxide BUN Creatinine Glucose POC Glucose 154 H 135 H 148 H Lactic Acid Calcium Phosphorus Magnesium AST ALT Lactate Dehydrogenase Total Bilirubin Direct Bilirubin CK-MB (CK-2) C-Reactive Protein NT-Pro-B Natriuret Pep Total Protein Albumin Arterial Blood Glucose Urine WBC (Auto) Urine Creatinine Digoxin 02/16/20 02/16/20 02/16/20 07:53 11:28 17:52 WBC RBC Hgb Hct MCHC RDW MCV MCH Lymph % (Auto) Holt % (Auto) Holt # Eos # Lymph # (Auto) Holt # (Auto) Eos # (Auto) Seg Neutrophils % Seg Neuts % (Manual) Baso # (Auto) Lymphocytes % (Manual) Monocytes % (Manual) Eosinophils % (Manual) Basophils % (Manual) Seg Neutrophils # Seg Neutrophils # Man Lymphocytes # (Manual) Monocytes # (Manual) Eosinophils # (Manual) Nucleated RBC % Basophils # (Manual) PT INR APTT Heparin Anti-Xa Level ABG pH POC ABG pO2 ABG pO2 ABG HCO3 ABG O2 Saturation ABG Base Excess POC ABG pCO2 ABG Hemoglobin ABG Oxyhemoglobin ABG Sodium ABG Chloride ABG Glucose Oxyhemoglobin Sodium Potassium Chloride 107.9 H Carbon Dioxide BUN 38 H Creatinine 0.6 L Glucose 151 H POC Glucose 123 H 152 H Lactic Acid Calcium Phosphorus Magnesium AST ALT Lactate Dehydrogenase Total Bilirubin Direct Bilirubin CK-MB (CK-2) C-Reactive Protein NT-Pro-B Natriuret Pep Total Protein Albumin Arterial Blood Glucose Urine WBC (Auto) Urine Creatinine Digoxin 02/16/20 02/17/20 02/17/20 23:49 06:24 11:36 WBC RBC Hgb Hct MCHC RDW MCV MCH Lymph % (Auto) Holt % (Auto) Holt # Eos # Lymph # (Auto) Holt # (Auto) Eos # (Auto) Seg Neutrophils % Seg Neuts % (Manual) Baso # (Auto) Lymphocytes % (Manual) Monocytes % (Manual) Eosinophils % (Manual) Basophils % (Manual) Seg Neutrophils # Seg Neutrophils # Man Lymphocytes # (Manual) Monocytes # (Manual) Eosinophils # (Manual) Nucleated RBC % Basophils # (Manual) PT INR APTT Heparin Anti-Xa Level ABG pH POC ABG pO2 ABG pO2 ABG HCO3 ABG O2 Saturation ABG Base Excess POC ABG pCO2 ABG Hemoglobin ABG Oxyhemoglobin ABG Sodium ABG Chloride ABG Glucose Oxyhemoglobin Sodium Potassium Chloride Carbon Dioxide BUN Creatinine Glucose POC Glucose 156 H 193 H 162 H Lactic Acid Calcium Phosphorus Magnesium AST ALT Lactate Dehydrogenase Total Bilirubin Direct Bilirubin CK-MB (CK-2) C-Reactive Protein NT-Pro-B Natriuret Pep Total Protein Albumin Arterial Blood Glucose Urine WBC (Auto) Urine Creatinine Digoxin 02/17/20 02/17/20 02/18/20 17:55 23:28 05:11 WBC RBC Hgb Hct MCHC RDW MCV MCH Lymph % (Auto) Holt % (Auto) Holt # Eos # Lymph # (Auto) Holt # (Auto) Eos # (Auto) Seg Neutrophils % Seg Neuts % (Manual) Baso # (Auto) Lymphocytes % (Manual) Monocytes % (Manual) Eosinophils % (Manual) Basophils % (Manual) Seg Neutrophils # Seg Neutrophils # Man Lymphocytes # (Manual) Monocytes # (Manual) Eosinophils # (Manual) Nucleated RBC % Basophils # (Manual) PT INR APTT Heparin Anti-Xa Level ABG pH POC ABG pO2 ABG pO2 ABG HCO3 ABG O2 Saturation ABG Base Excess POC ABG pCO2 ABG Hemoglobin ABG Oxyhemoglobin ABG Sodium ABG Chloride ABG Glucose Oxyhemoglobin Sodium Potassium Chloride Carbon Dioxide BUN Creatinine Glucose POC Glucose 165 H 146 H 122 H Lactic Acid Calcium Phosphorus Magnesium AST ALT Lactate Dehydrogenase Total Bilirubin Direct Bilirubin CK-MB (CK-2) C-Reactive Protein NT-Pro-B Natriuret Pep Total Protein Albumin Arterial Blood Glucose Urine WBC (Auto) Urine Creatinine Digoxin 02/18/20 02/18/20 02/19/20 12:24 17:29 00:01 WBC RBC Hgb Hct MCHC RDW MCV MCH Lymph % (Auto) Holt % (Auto) Holt # Eos # Lymph # (Auto) Holt # (Auto) Eos # (Auto) Seg Neutrophils % Seg Neuts % (Manual) Baso # (Auto) Lymphocytes % (Manual) Monocytes % (Manual) Eosinophils % (Manual) Basophils % (Manual) Seg Neutrophils # Seg Neutrophils # Man Lymphocytes # (Manual) Monocytes # (Manual) Eosinophils # (Manual) Nucleated RBC % Basophils # (Manual) PT INR APTT Heparin Anti-Xa Level ABG pH POC ABG pO2 ABG pO2 ABG HCO3 ABG O2 Saturation ABG Base Excess POC ABG pCO2 ABG Hemoglobin ABG Oxyhemoglobin ABG Sodium ABG Chloride ABG Glucose Oxyhemoglobin Sodium Potassium Chloride Carbon Dioxide BUN Creatinine Glucose POC Glucose 162 H 136 H 145 H Lactic Acid Calcium Phosphorus Magnesium AST ALT Lactate Dehydrogenase Total Bilirubin Direct Bilirubin CK-MB (CK-2) C-Reactive Protein NT-Pro-B Natriuret Pep Total Protein Albumin Arterial Blood Glucose Urine WBC (Auto) Urine Creatinine Digoxin 02/19/20 02/19/20 02/19/20 05:53 11:44 17:32 WBC RBC Hgb Hct MCHC RDW MCV MCH Lymph % (Auto) Holt % (Auto) Holt # Eos # Lymph # (Auto) Holt # (Auto) Eos # (Auto) Seg Neutrophils % Seg Neuts % (Manual) Baso # (Auto) Lymphocytes % (Manual) Monocytes % (Manual) Eosinophils % (Manual) Basophils % (Manual) Seg Neutrophils # Seg Neutrophils # Man Lymphocytes # (Manual) Monocytes # (Manual) Eosinophils # (Manual) Nucleated RBC % Basophils # (Manual) PT INR APTT Heparin Anti-Xa Level ABG pH POC ABG pO2 ABG pO2 ABG HCO3 ABG O2 Saturation ABG Base Excess POC ABG pCO2 ABG Hemoglobin ABG Oxyhemoglobin ABG Sodium ABG Chloride ABG Glucose Oxyhemoglobin Sodium Potassium Chloride Carbon Dioxide BUN Creatinine Glucose POC Glucose 116 H 120 H 154 H Lactic Acid Calcium Phosphorus Magnesium AST ALT Lactate Dehydrogenase Total Bilirubin Direct Bilirubin CK-MB (CK-2) C-Reactive Protein NT-Pro-B Natriuret Pep Total Protein Albumin Arterial Blood Glucose Urine WBC (Auto) Urine Creatinine Digoxin 02/19/20 02/20/20 02/20/20 23:43 00:24 00:24 WBC RBC Hgb 9.4 L Hct 30.0 L MCHC 31 L RDW 20.4 H MCV 79 L MCH 25 L Lymph % (Auto) Holt % (Auto) 8.5 H Holt # Eos # Lymph # (Auto) Holt # (Auto) Eos # (Auto) Seg Neutrophils % Seg Neuts % (Manual) Baso # (Auto) Lymphocytes % (Manual) Monocytes % (Manual) Eosinophils % (Manual) Basophils % (Manual) Seg Neutrophils # Seg Neutrophils # Man Lymphocytes # (Manual) Monocytes # (Manual) Eosinophils # (Manual) Nucleated RBC % Basophils # (Manual) PT INR APTT Heparin Anti-Xa Level ABG pH POC ABG pO2 ABG pO2 ABG HCO3 ABG O2 Saturation ABG Base Excess POC ABG pCO2 ABG Hemoglobin ABG Oxyhemoglobin ABG Sodium ABG Chloride ABG Glucose Oxyhemoglobin Sodium 147 H Potassium 3.4 L Chloride Carbon Dioxide 31 H BUN 34 H Creatinine 0.5 L Glucose 135 H POC Glucose 122 H Lactic Acid Calcium Phosphorus Magnesium AST ALT Lactate Dehydrogenase Total Bilirubin Direct Bilirubin CK-MB (CK-2) C-Reactive Protein NT-Pro-B Natriuret Pep Total Protein Albumin Arterial Blood Glucose Urine WBC (Auto) Urine Creatinine Digoxin 02/20/20 02/20/20 02/20/20 06:07 06:45 12:03 WBC RBC Hgb Hct MCHC RDW MCV MCH Lymph % (Auto) Holt % (Auto) Holt # Eos # Lymph # (Auto) Holt # (Auto) Eos # (Auto) Seg Neutrophils % Seg Neuts % (Manual) Baso # (Auto) Lymphocytes % (Manual) Monocytes % (Manual) Eosinophils % (Manual) Basophils % (Manual) Seg Neutrophils # Seg Neutrophils # Man Lymphocytes # (Manual) Monocytes # (Manual) Eosinophils # (Manual) Nucleated RBC % Basophils # (Manual) PT INR APTT Heparin Anti-Xa Level ABG pH 7.461 H POC ABG pO2 ABG pO2 ABG HCO3 33.3 H ABG O2 Saturation ABG Base Excess 8.4 H POC ABG pCO2 ABG Hemoglobin 10.0 L ABG Oxyhemoglobin ABG Sodium ABG Chloride ABG Glucose Oxyhemoglobin 94.1 L Sodium Potassium Chloride Carbon Dioxide BUN Creatinine Glucose POC Glucose 109 H 128 H Lactic Acid Calcium Phosphorus Magnesium AST ALT Lactate Dehydrogenase Total Bilirubin Direct Bilirubin CK-MB (CK-2) C-Reactive Protein NT-Pro-B Natriuret Pep Total Protein Albumin Arterial Blood Glucose Urine WBC (Auto) Urine Creatinine Digoxin 02/20/20 02/20/20 02/21/20 18:02 23:55 05:42 WBC RBC Hgb Hct MCHC RDW MCV MCH Lymph % (Auto) Holt % (Auto) Holt # Eos # Lymph # (Auto) Holt # (Auto) Eos # (Auto) Seg Neutrophils % Seg Neuts % (Manual) Baso # (Auto) Lymphocytes % (Manual) Monocytes % (Manual) Eosinophils % (Manual) Basophils % (Manual) Seg Neutrophils # Seg Neutrophils # Man Lymphocytes # (Manual) Monocytes # (Manual) Eosinophils # (Manual) Nucleated RBC % Basophils # (Manual) PT INR APTT Heparin Anti-Xa Level ABG pH POC ABG pO2 ABG pO2 ABG HCO3 ABG O2 Saturation ABG Base Excess POC ABG pCO2 ABG Hemoglobin ABG Oxyhemoglobin ABG Sodium ABG Chloride ABG Glucose Oxyhemoglobin Sodium Potassium Chloride Carbon Dioxide BUN Creatinine Glucose POC Glucose 118 H 125 H 127 H Lactic Acid Calcium Phosphorus Magnesium AST ALT Lactate Dehydrogenase Total Bilirubin Direct Bilirubin CK-MB (CK-2) C-Reactive Protein NT-Pro-B Natriuret Pep Total Protein Albumin Arterial Blood Glucose Urine WBC (Auto) Urine Creatinine Digoxin 02/21/20 02/21/20 02/21/20 12:10 17:35 23:40 WBC RBC Hgb Hct MCHC RDW MCV MCH Lymph % (Auto) Holt % (Auto) Holt # Eos # Lymph # (Auto) Holt # (Auto) Eos # (Auto) Seg Neutrophils % Seg Neuts % (Manual) Baso # (Auto) Lymphocytes % (Manual) Monocytes % (Manual) Eosinophils % (Manual) Basophils % (Manual) Seg Neutrophils # Seg Neutrophils # Man Lymphocytes # (Manual) Monocytes # (Manual) Eosinophils # (Manual) Nucleated RBC % Basophils # (Manual) PT INR APTT Heparin Anti-Xa Level ABG pH POC ABG pO2 ABG pO2 ABG HCO3 ABG O2 Saturation ABG Base Excess POC ABG pCO2 ABG Hemoglobin ABG Oxyhemoglobin ABG Sodium ABG Chloride ABG Glucose Oxyhemoglobin Sodium Potassium Chloride Carbon Dioxide BUN Creatinine Glucose POC Glucose 128 H 113 H 125 H Lactic Acid Calcium Phosphorus Magnesium AST ALT Lactate Dehydrogenase Total Bilirubin Direct Bilirubin CK-MB (CK-2) C-Reactive Protein NT-Pro-B Natriuret Pep Total Protein Albumin Arterial Blood Glucose Urine WBC (Auto) Urine Creatinine Digoxin 02/22/20 02/22/20 02/22/20 05:57 08:06 08:06 WBC RBC Hgb 10.8 L Hct 35.2 L MCHC 31 L RDW 21.8 H MCV 80 L MCH 25 L Lymph % (Auto) Holt % (Auto) Holt # Eos # Lymph # (Auto) Holt # (Auto) Eos # (Auto) Seg Neutrophils % 71.5 H Seg Neuts % (Manual) Baso # (Auto) Lymphocytes % (Manual) Monocytes % (Manual) Eosinophils % (Manual) Basophils % (Manual) Seg Neutrophils # Seg Neutrophils # Man Lymphocytes # (Manual) Monocytes # (Manual) Eosinophils # (Manual) Nucleated RBC % Basophils # (Manual) PT INR APTT Heparin Anti-Xa Level ABG pH POC ABG pO2 ABG pO2 ABG HCO3 ABG O2 Saturation ABG Base Excess POC ABG pCO2 ABG Hemoglobin ABG Oxyhemoglobin ABG Sodium ABG Chloride ABG Glucose Oxyhemoglobin Sodium 146 H Potassium Chloride Carbon Dioxide 34 H BUN 21 H Creatinine 0.4 L Glucose 149 H POC Glucose 138 H Lactic Acid Calcium Phosphorus Magnesium AST ALT Lactate Dehydrogenase Total Bilirubin Direct Bilirubin CK-MB (CK-2) C-Reactive Protein NT-Pro-B Natriuret Pep Total Protein Albumin Arterial Blood Glucose Urine WBC (Auto) Urine Creatinine Digoxin 02/22/20 02/22/20 02/22/20 11:47 17:11 23:25 WBC RBC Hgb Hct MCHC RDW MCV MCH Lymph % (Auto) Holt % (Auto) Holt # Eos # Lymph # (Auto) Holt # (Auto) Eos # (Auto) Seg Neutrophils % Seg Neuts % (Manual) Baso # (Auto) Lymphocytes % (Manual) Monocytes % (Manual) Eosinophils % (Manual) Basophils % (Manual) Seg Neutrophils # Seg Neutrophils # Man Lymphocytes # (Manual) Monocytes # (Manual) Eosinophils # (Manual) Nucleated RBC % Basophils # (Manual) PT INR APTT Heparin Anti-Xa Level ABG pH POC ABG pO2 ABG pO2 ABG HCO3 ABG O2 Saturation ABG Base Excess POC ABG pCO2 ABG Hemoglobin ABG Oxyhemoglobin ABG Sodium ABG Chloride ABG Glucose Oxyhemoglobin Sodium Potassium Chloride Carbon Dioxide BUN Creatinine Glucose POC Glucose 149 H 144 H 142 H Lactic Acid Calcium Phosphorus Magnesium AST ALT Lactate Dehydrogenase Total Bilirubin Direct Bilirubin CK-MB (CK-2) C-Reactive Protein NT-Pro-B Natriuret Pep Total Protein Albumin Arterial Blood Glucose Urine WBC (Auto) Urine Creatinine Digoxin 02/23/20 02/23/20 02/23/20 05:22 11:37 18:14 WBC RBC Hgb Hct MCHC RDW MCV MCH Lymph % (Auto) Holt % (Auto) Holt # Eos # Lymph # (Auto) Holt # (Auto) Eos # (Auto) Seg Neutrophils % Seg Neuts % (Manual) Baso # (Auto) Lymphocytes % (Manual) Monocytes % (Manual) Eosinophils % (Manual) Basophils % (Manual) Seg Neutrophils # Seg Neutrophils # Man Lymphocytes # (Manual) Monocytes # (Manual) Eosinophils # (Manual) Nucleated RBC % Basophils # (Manual) PT INR APTT Heparin Anti-Xa Level ABG pH POC ABG pO2 ABG pO2 ABG HCO3 ABG O2 Saturation ABG Base Excess POC ABG pCO2 ABG Hemoglobin ABG Oxyhemoglobin ABG Sodium ABG Chloride ABG Glucose Oxyhemoglobin Sodium Potassium Chloride Carbon Dioxide BUN Creatinine Glucose POC Glucose 144 H 113 H 127 H Lactic Acid Calcium Phosphorus Magnesium AST ALT Lactate Dehydrogenase Total Bilirubin Direct Bilirubin CK-MB (CK-2) C-Reactive Protein NT-Pro-B Natriuret Pep Total Protein Albumin Arterial Blood Glucose Urine WBC (Auto) Urine Creatinine Digoxin 02/23/20 02/24/20 02/24/20 23:45 05:50 11:24 WBC RBC Hgb Hct MCHC RDW MCV MCH Lymph % (Auto) Holt % (Auto) Holt # Eos # Lymph # (Auto) Holt # (Auto) Eos # (Auto) Seg Neutrophils % Seg Neuts % (Manual) Baso # (Auto) Lymphocytes % (Manual) Monocytes % (Manual) Eosinophils % (Manual) Basophils % (Manual) Seg Neutrophils # Seg Neutrophils # Man Lymphocytes # (Manual) Monocytes # (Manual) Eosinophils # (Manual) Nucleated RBC % Basophils # (Manual) PT INR APTT Heparin Anti-Xa Level ABG pH POC ABG pO2 ABG pO2 ABG HCO3 ABG O2 Saturation ABG Base Excess POC ABG pCO2 ABG Hemoglobin ABG Oxyhemoglobin ABG Sodium ABG Chloride ABG Glucose Oxyhemoglobin Sodium Potassium Chloride Carbon Dioxide BUN Creatinine Glucose POC Glucose 123 H 117 H 126 H Lactic Acid Calcium Phosphorus Magnesium AST ALT Lactate Dehydrogenase Total Bilirubin Direct Bilirubin CK-MB (CK-2) C-Reactive Protein NT-Pro-B Natriuret Pep Total Protein Albumin Arterial Blood Glucose Urine WBC (Auto) Urine Creatinine Digoxin 02/24/20 02/24/20 02/25/20 18:35 23:27 05:20 WBC RBC Hgb Hct MCHC RDW MCV MCH Lymph % (Auto) Holt % (Auto) Holt # Eos # Lymph # (Auto) Holt # (Auto) Eos # (Auto) Seg Neutrophils % Seg Neuts % (Manual) Baso # (Auto) Lymphocytes % (Manual) Monocytes % (Manual) Eosinophils % (Manual) Basophils % (Manual) Seg Neutrophils # Seg Neutrophils # Man Lymphocytes # (Manual) Monocytes # (Manual) Eosinophils # (Manual) Nucleated RBC % Basophils # (Manual) PT INR APTT Heparin Anti-Xa Level ABG pH POC ABG pO2 ABG pO2 ABG HCO3 ABG O2 Saturation ABG Base Excess POC ABG pCO2 ABG Hemoglobin ABG Oxyhemoglobin ABG Sodium ABG Chloride ABG Glucose Oxyhemoglobin Sodium Potassium Chloride Carbon Dioxide BUN Creatinine Glucose POC Glucose 121 H 127 H 133 H Lactic Acid Calcium Phosphorus Magnesium AST ALT Lactate Dehydrogenase Total Bilirubin Direct Bilirubin CK-MB (CK-2) C-Reactive Protein NT-Pro-B Natriuret Pep Total Protein Albumin Arterial Blood Glucose Urine WBC (Auto) Urine Creatinine Digoxin 02/25/20 02/25/20 02/25/20 12:08 17:26 23:33 WBC RBC Hgb Hct MCHC RDW MCV MCH Lymph % (Auto) Holt % (Auto) Holt # Eos # Lymph # (Auto) Holt # (Auto) Eos # (Auto) Seg Neutrophils % Seg Neuts % (Manual) Baso # (Auto) Lymphocytes % (Manual) Monocytes % (Manual) Eosinophils % (Manual) Basophils % (Manual) Seg Neutrophils # Seg Neutrophils # Man Lymphocytes # (Manual) Monocytes # (Manual) Eosinophils # (Manual) Nucleated RBC % Basophils # (Manual) PT INR APTT Heparin Anti-Xa Level ABG pH POC ABG pO2 ABG pO2 ABG HCO3 ABG O2 Saturation ABG Base Excess POC ABG pCO2 ABG Hemoglobin ABG Oxyhemoglobin ABG Sodium ABG Chloride ABG Glucose Oxyhemoglobin Sodium Potassium Chloride Carbon Dioxide BUN Creatinine Glucose POC Glucose 109 H 120 H 120 H Lactic Acid Calcium Phosphorus Magnesium AST ALT Lactate Dehydrogenase Total Bilirubin Direct Bilirubin CK-MB (CK-2) C-Reactive Protein NT-Pro-B Natriuret Pep Total Protein Albumin Arterial Blood Glucose Urine WBC (Auto) Urine Creatinine Digoxin 02/26/20 02/26/20 02/27/20 05:33 07:50 12:13 WBC RBC Hgb Hct MCHC RDW MCV MCH Lymph % (Auto) Holt % (Auto) Holt # Eos # Lymph # (Auto) Holt # (Auto) Eos # (Auto) Seg Neutrophils % Seg Neuts % (Manual) Baso # (Auto) Lymphocytes % (Manual) Monocytes % (Manual) Eosinophils % (Manual) Basophils % (Manual) Seg Neutrophils # Seg Neutrophils # Man Lymphocytes # (Manual) Monocytes # (Manual) Eosinophils # (Manual) Nucleated RBC % Basophils # (Manual) PT INR APTT Heparin Anti-Xa Level ABG pH POC ABG pO2 ABG pO2 ABG HCO3 ABG O2 Saturation ABG Base Excess POC ABG pCO2 ABG Hemoglobin ABG Oxyhemoglobin ABG Sodium ABG Chloride ABG Glucose Oxyhemoglobin Sodium Potassium Chloride Carbon Dioxide BUN Creatinine Glucose POC Glucose 106 H 130 H Lactic Acid Calcium Phosphorus Magnesium AST ALT Lactate Dehydrogenase Total Bilirubin Direct Bilirubin CK-MB (CK-2) C-Reactive Protein NT-Pro-B Natriuret Pep Total Protein Albumin Arterial Blood Glucose Urine WBC (Auto) > 182.0 H Urine Creatinine Digoxin 02/27/20 02/27/20 02/28/20 18:20 23:33 05:01 WBC RBC Hgb Hct MCHC RDW MCV MCH Lymph % (Auto) Holt % (Auto) Holt # Eos # Lymph # (Auto) Holt # (Auto) Eos # (Auto) Seg Neutrophils % Seg Neuts % (Manual) Baso # (Auto) Lymphocytes % (Manual) Monocytes % (Manual) Eosinophils % (Manual) Basophils % (Manual) Seg Neutrophils # Seg Neutrophils # Man Lymphocytes # (Manual) Monocytes # (Manual) Eosinophils # (Manual) Nucleated RBC % Basophils # (Manual) PT INR APTT Heparin Anti-Xa Level ABG pH POC ABG pO2 ABG pO2 ABG HCO3 ABG O2 Saturation ABG Base Excess POC ABG pCO2 ABG Hemoglobin ABG Oxyhemoglobin ABG Sodium ABG Chloride ABG Glucose Oxyhemoglobin Sodium Potassium Chloride Carbon Dioxide BUN Creatinine Glucose POC Glucose 109 H 124 H 134 H Lactic Acid Calcium Phosphorus Magnesium AST ALT Lactate Dehydrogenase Total Bilirubin Direct Bilirubin CK-MB (CK-2) C-Reactive Protein NT-Pro-B Natriuret Pep Total Protein Albumin Arterial Blood Glucose Urine WBC (Auto) Urine Creatinine Digoxin 02/28/20 02/28/20 02/28/20 11:54 18:16 23:03 WBC RBC Hgb Hct MCHC RDW MCV MCH Lymph % (Auto) Holt % (Auto) Holt # Eos # Lymph # (Auto) Holt # (Auto) Eos # (Auto) Seg Neutrophils % Seg Neuts % (Manual) Baso # (Auto) Lymphocytes % (Manual) Monocytes % (Manual) Eosinophils % (Manual) Basophils % (Manual) Seg Neutrophils # Seg Neutrophils # Man Lymphocytes # (Manual) Monocytes # (Manual) Eosinophils # (Manual) Nucleated RBC % Basophils # (Manual) PT INR APTT Heparin Anti-Xa Level ABG pH POC ABG pO2 ABG pO2 ABG HCO3 ABG O2 Saturation ABG Base Excess POC ABG pCO2 ABG Hemoglobin ABG Oxyhemoglobin ABG Sodium ABG Chloride ABG Glucose Oxyhemoglobin Sodium Potassium Chloride Carbon Dioxide BUN Creatinine Glucose POC Glucose 133 H 134 H 146 H Lactic Acid Calcium Phosphorus Magnesium AST ALT Lactate Dehydrogenase Total Bilirubin Direct Bilirubin CK-MB (CK-2) C-Reactive Protein NT-Pro-B Natriuret Pep Total Protein Albumin Arterial Blood Glucose Urine WBC (Auto) Urine Creatinine Digoxin 02/29/20 02/29/20 02/29/20 05:24 11:34 17:12 WBC RBC Hgb Hct MCHC RDW MCV MCH Lymph % (Auto) Holt % (Auto) Holt # Eos # Lymph # (Auto) Holt # (Auto) Eos # (Auto) Seg Neutrophils % Seg Neuts % (Manual) Baso # (Auto) Lymphocytes % (Manual) Monocytes % (Manual) Eosinophils % (Manual) Basophils % (Manual) Seg Neutrophils # Seg Neutrophils # Man Lymphocytes # (Manual) Monocytes # (Manual) Eosinophils # (Manual) Nucleated RBC % Basophils # (Manual) PT INR APTT Heparin Anti-Xa Level ABG pH POC ABG pO2 ABG pO2 ABG HCO3 ABG O2 Saturation ABG Base Excess POC ABG pCO2 ABG Hemoglobin ABG Oxyhemoglobin ABG Sodium ABG Chloride ABG Glucose Oxyhemoglobin Sodium Potassium Chloride Carbon Dioxide BUN Creatinine Glucose POC Glucose 139 H 141 H 157 H Lactic Acid Calcium Phosphorus Magnesium AST ALT Lactate Dehydrogenase Total Bilirubin Direct Bilirubin CK-MB (CK-2) C-Reactive Protein NT-Pro-B Natriuret Pep Total Protein Albumin Arterial Blood Glucose Urine WBC (Auto) Urine Creatinine Digoxin 02/29/20 03/01/20 03/01/20 23:35 06:00 11:53 WBC RBC Hgb Hct MCHC RDW MCV MCH Lymph % (Auto) Holt % (Auto) Holt # Eos # Lymph # (Auto) Holt # (Auto) Eos # (Auto) Seg Neutrophils % Seg Neuts % (Manual) Baso # (Auto) Lymphocytes % (Manual) Monocytes % (Manual) Eosinophils % (Manual) Basophils % (Manual) Seg Neutrophils # Seg Neutrophils # Man Lymphocytes # (Manual) Monocytes # (Manual) Eosinophils # (Manual) Nucleated RBC % Basophils # (Manual) PT INR APTT Heparin Anti-Xa Level ABG pH POC ABG pO2 ABG pO2 ABG HCO3 ABG O2 Saturation ABG Base Excess POC ABG pCO2 ABG Hemoglobin ABG Oxyhemoglobin ABG Sodium ABG Chloride ABG Glucose Oxyhemoglobin Sodium Potassium Chloride Carbon Dioxide BUN Creatinine Glucose POC Glucose 120 H 132 H 136 H Lactic Acid Calcium Phosphorus Magnesium AST ALT Lactate Dehydrogenase Total Bilirubin Direct Bilirubin CK-MB (CK-2) C-Reactive Protein NT-Pro-B Natriuret Pep Total Protein Albumin Arterial Blood Glucose Urine WBC (Auto) Urine Creatinine Digoxin 03/01/20 03/01/20 03/02/20 17:36 23:16 05:12 WBC RBC Hgb Hct MCHC RDW MCV MCH Lymph % (Auto) Holt % (Auto) Holt # Eos # Lymph # (Auto) Holt # (Auto) Eos # (Auto) Seg Neutrophils % Seg Neuts % (Manual) Baso # (Auto) Lymphocytes % (Manual) Monocytes % (Manual) Eosinophils % (Manual) Basophils % (Manual) Seg Neutrophils # Seg Neutrophils # Man Lymphocytes # (Manual) Monocytes # (Manual) Eosinophils # (Manual) Nucleated RBC % Basophils # (Manual) PT INR APTT Heparin Anti-Xa Level ABG pH POC ABG pO2 ABG pO2 ABG HCO3 ABG O2 Saturation ABG Base Excess POC ABG pCO2 ABG Hemoglobin ABG Oxyhemoglobin ABG Sodium ABG Chloride ABG Glucose Oxyhemoglobin Sodium Potassium Chloride Carbon Dioxide BUN Creatinine Glucose POC Glucose 171 H 164 H 176 H Lactic Acid Calcium Phosphorus Magnesium AST ALT Lactate Dehydrogenase Total Bilirubin Direct Bilirubin CK-MB (CK-2) C-Reactive Protein NT-Pro-B Natriuret Pep Total Protein Albumin Arterial Blood Glucose Urine WBC (Auto) Urine Creatinine Digoxin 03/02/20 03/02/20 03/03/20 11:42 18:01 00:06 WBC RBC Hgb Hct MCHC RDW MCV MCH Lymph % (Auto) Holt % (Auto) Holt # Eos # Lymph # (Auto) Holt # (Auto) Eos # (Auto) Seg Neutrophils % Seg Neuts % (Manual) Baso # (Auto) Lymphocytes % (Manual) Monocytes % (Manual) Eosinophils % (Manual) Basophils % (Manual) Seg Neutrophils # Seg Neutrophils # Man Lymphocytes # (Manual) Monocytes # (Manual) Eosinophils # (Manual) Nucleated RBC % Basophils # (Manual) PT INR APTT Heparin Anti-Xa Level ABG pH POC ABG pO2 ABG pO2 ABG HCO3 ABG O2 Saturation ABG Base Excess POC ABG pCO2 ABG Hemoglobin ABG Oxyhemoglobin ABG Sodium ABG Chloride ABG Glucose Oxyhemoglobin Sodium Potassium Chloride Carbon Dioxide BUN Creatinine Glucose POC Glucose 150 H 156 H 156 H Lactic Acid Calcium Phosphorus Magnesium AST ALT Lactate Dehydrogenase Total Bilirubin Direct Bilirubin CK-MB (CK-2) C-Reactive Protein NT-Pro-B Natriuret Pep Total Protein Albumin Arterial Blood Glucose Urine WBC (Auto) Urine Creatinine Digoxin 03/03/20 03/03/20 03/03/20 03:31 11:20 16:55 WBC RBC Hgb Hct MCHC RDW MCV MCH Lymph % (Auto) Holt % (Auto) Holt # Eos # Lymph # (Auto) Holt # (Auto) Eos # (Auto) Seg Neutrophils % Seg Neuts % (Manual) Baso # (Auto) Lymphocytes % (Manual) Monocytes % (Manual) Eosinophils % (Manual) Basophils % (Manual) Seg Neutrophils # Seg Neutrophils # Man Lymphocytes # (Manual) Monocytes # (Manual) Eosinophils # (Manual) Nucleated RBC % Basophils # (Manual) PT INR APTT Heparin Anti-Xa Level ABG pH POC ABG pO2 ABG pO2 ABG HCO3 ABG O2 Saturation ABG Base Excess POC ABG pCO2 ABG Hemoglobin ABG Oxyhemoglobin ABG Sodium ABG Chloride ABG Glucose Oxyhemoglobin Sodium Potassium Chloride Carbon Dioxide BUN Creatinine Glucose POC Glucose 164 H 125 H 211 H Lactic Acid Calcium Phosphorus Magnesium AST ALT Lactate Dehydrogenase Total Bilirubin Direct Bilirubin CK-MB (CK-2) C-Reactive Protein NT-Pro-B Natriuret Pep Total Protein Albumin Arterial Blood Glucose Urine WBC (Auto) Urine Creatinine Digoxin 03/04/20 03/04/20 03/04/20 00:29 05:20 12:09 WBC RBC Hgb Hct MCHC RDW MCV MCH Lymph % (Auto) Holt % (Auto) Holt # Eos # Lymph # (Auto) Holt # (Auto) Eos # (Auto) Seg Neutrophils % Seg Neuts % (Manual) Baso # (Auto) Lymphocytes % (Manual) Monocytes % (Manual) Eosinophils % (Manual) Basophils % (Manual) Seg Neutrophils # Seg Neutrophils # Man Lymphocytes # (Manual) Monocytes # (Manual) Eosinophils # (Manual) Nucleated RBC % Basophils # (Manual) PT INR APTT Heparin Anti-Xa Level ABG pH POC ABG pO2 ABG pO2 ABG HCO3 ABG O2 Saturation ABG Base Excess POC ABG pCO2 ABG Hemoglobin ABG Oxyhemoglobin ABG Sodium ABG Chloride ABG Glucose Oxyhemoglobin Sodium Potassium Chloride Carbon Dioxide BUN Creatinine Glucose POC Glucose 169 H 154 H 197 H Lactic Acid Calcium Phosphorus Magnesium AST ALT Lactate Dehydrogenase Total Bilirubin Direct Bilirubin CK-MB (CK-2) C-Reactive Protein NT-Pro-B Natriuret Pep Total Protein Albumin Arterial Blood Glucose Urine WBC (Auto) Urine Creatinine Digoxin 03/04/20 03/04/20 03/04/20 18:00 20:38 20:38 WBC RBC Hgb 10.1 L Hct 32.7 L MCHC 31 L RDW 24.7 H MCV 79 L MCH 24 L Lymph % (Auto) Holt % (Auto) 8.9 H Holt # Eos # Lymph # (Auto) Holt # (Auto) Eos # (Auto) Seg Neutrophils % Seg Neuts % (Manual) Baso # (Auto) Lymphocytes % (Manual) Monocytes % (Manual) Eosinophils % (Manual) Basophils % (Manual) Seg Neutrophils # Seg Neutrophils # Man Lymphocytes # (Manual) Monocytes # (Manual) Eosinophils # (Manual) Nucleated RBC % Basophils # (Manual) PT INR APTT Heparin Anti-Xa Level ABG pH POC ABG pO2 ABG pO2 ABG HCO3 ABG O2 Saturation ABG Base Excess POC ABG pCO2 ABG Hemoglobin ABG Oxyhemoglobin ABG Sodium ABG Chloride ABG Glucose Oxyhemoglobin Sodium 136 L Potassium Chloride Carbon Dioxide BUN 25 H Creatinine 0.5 L Glucose 148 H POC Glucose 146 H Lactic Acid Calcium Phosphorus Magnesium AST ALT Lactate Dehydrogenase Total Bilirubin Direct Bilirubin CK-MB (CK-2) C-Reactive Protein NT-Pro-B Natriuret Pep Total Protein Albumin Arterial Blood Glucose Urine WBC (Auto) Urine Creatinine Digoxin 03/04/20 03/05/20 03/05/20 23:17 05:44 11:32 WBC RBC Hgb Hct MCHC RDW MCV MCH Lymph % (Auto) Holt % (Auto) Holt # Eos # Lymph # (Auto) Holt # (Auto) Eos # (Auto) Seg Neutrophils % Seg Neuts % (Manual) Baso # (Auto) Lymphocytes % (Manual) Monocytes % (Manual) Eosinophils % (Manual) Basophils % (Manual) Seg Neutrophils # Seg Neutrophils # Man Lymphocytes # (Manual) Monocytes # (Manual) Eosinophils # (Manual) Nucleated RBC % Basophils # (Manual) PT INR APTT Heparin Anti-Xa Level ABG pH POC ABG pO2 ABG pO2 ABG HCO3 ABG O2 Saturation ABG Base Excess POC ABG pCO2 ABG Hemoglobin ABG Oxyhemoglobin ABG Sodium ABG Chloride ABG Glucose Oxyhemoglobin Sodium Potassium Chloride Carbon Dioxide BUN Creatinine Glucose POC Glucose 139 H 155 H 124 H Lactic Acid Calcium Phosphorus Magnesium AST ALT Lactate Dehydrogenase Total Bilirubin Direct Bilirubin CK-MB (CK-2) C-Reactive Protein NT-Pro-B Natriuret Pep Total Protein Albumin Arterial Blood Glucose Urine WBC (Auto) Urine Creatinine Digoxin 03/05/20 03/05/20 03/06/20 17:45 23:18 12:16 WBC RBC Hgb Hct MCHC RDW MCV MCH Lymph % (Auto) Holt % (Auto) Holt # Eos # Lymph # (Auto) Holt # (Auto) Eos # (Auto) Seg Neutrophils % Seg Neuts % (Manual) Baso # (Auto) Lymphocytes % (Manual) Monocytes % (Manual) Eosinophils % (Manual) Basophils % (Manual) Seg Neutrophils # Seg Neutrophils # Man Lymphocytes # (Manual) Monocytes # (Manual) Eosinophils # (Manual) Nucleated RBC % Basophils # (Manual) PT INR APTT Heparin Anti-Xa Level ABG pH POC ABG pO2 ABG pO2 ABG HCO3 ABG O2 Saturation ABG Base Excess POC ABG pCO2 ABG Hemoglobin ABG Oxyhemoglobin ABG Sodium ABG Chloride ABG Glucose Oxyhemoglobin Sodium Potassium Chloride Carbon Dioxide BUN Creatinine Glucose POC Glucose 171 H 114 H 155 H Lactic Acid Calcium Phosphorus Magnesium AST ALT Lactate Dehydrogenase Total Bilirubin Direct Bilirubin CK-MB (CK-2) C-Reactive Protein NT-Pro-B Natriuret Pep Total Protein Albumin Arterial Blood Glucose Urine WBC (Auto) Urine Creatinine Digoxin 03/06/20 03/06/20 03/07/20 17:27 23:48 06:02 WBC RBC Hgb Hct MCHC RDW MCV MCH Lymph % (Auto) Holt % (Auto) Holt # Eos # Lymph # (Auto) Holt # (Auto) Eos # (Auto) Seg Neutrophils % Seg Neuts % (Manual) Baso # (Auto) Lymphocytes % (Manual) Monocytes % (Manual) Eosinophils % (Manual) Basophils % (Manual) Seg Neutrophils # Seg Neutrophils # Man Lymphocytes # (Manual) Monocytes # (Manual) Eosinophils # (Manual) Nucleated RBC % Basophils # (Manual) PT INR APTT Heparin Anti-Xa Level ABG pH POC ABG pO2 ABG pO2 ABG HCO3 ABG O2 Saturation ABG Base Excess POC ABG pCO2 ABG Hemoglobin ABG Oxyhemoglobin ABG Sodium ABG Chloride ABG Glucose Oxyhemoglobin Sodium Potassium Chloride Carbon Dioxide BUN Creatinine Glucose POC Glucose 116 H 142 H 161 H Lactic Acid Calcium Phosphorus Magnesium AST ALT Lactate Dehydrogenase Total Bilirubin Direct Bilirubin CK-MB (CK-2) C-Reactive Protein NT-Pro-B Natriuret Pep Total Protein Albumin Arterial Blood Glucose Urine WBC (Auto) Urine Creatinine Digoxin 03/07/20 03/08/20 03/08/20 11:36 05:18 11:51 WBC RBC Hgb Hct MCHC RDW MCV MCH Lymph % (Auto) Holt % (Auto) Holt # Eos # Lymph # (Auto) Holt # (Auto) Eos # (Auto) Seg Neutrophils % Seg Neuts % (Manual) Baso # (Auto) Lymphocytes % (Manual) Monocytes % (Manual) Eosinophils % (Manual) Basophils % (Manual) Seg Neutrophils # Seg Neutrophils # Man Lymphocytes # (Manual) Monocytes # (Manual) Eosinophils # (Manual) Nucleated RBC % Basophils # (Manual) PT INR APTT Heparin Anti-Xa Level ABG pH POC ABG pO2 ABG pO2 ABG HCO3 ABG O2 Saturation ABG Base Excess POC ABG pCO2 ABG Hemoglobin ABG Oxyhemoglobin ABG Sodium ABG Chloride ABG Glucose Oxyhemoglobin Sodium Potassium Chloride Carbon Dioxide BUN Creatinine Glucose POC Glucose 127 H 142 H 135 H Lactic Acid Calcium Phosphorus Magnesium AST ALT Lactate Dehydrogenase Total Bilirubin Direct Bilirubin CK-MB (CK-2) C-Reactive Protein NT-Pro-B Natriuret Pep Total Protein Albumin Arterial Blood Glucose Urine WBC (Auto) Urine Creatinine Digoxin 03/08/20 03/08/20 03/09/20 18:14 23:45 05:36 WBC RBC Hgb Hct MCHC RDW MCV MCH Lymph % (Auto) Holt % (Auto) Holt # Eos # Lymph # (Auto) Holt # (Auto) Eos # (Auto) Seg Neutrophils % Seg Neuts % (Manual) Baso # (Auto) Lymphocytes % (Manual) Monocytes % (Manual) Eosinophils % (Manual) Basophils % (Manual) Seg Neutrophils # Seg Neutrophils # Man Lymphocytes # (Manual) Monocytes # (Manual) Eosinophils # (Manual) Nucleated RBC % Basophils # (Manual) PT INR APTT Heparin Anti-Xa Level ABG pH POC ABG pO2 ABG pO2 ABG HCO3 ABG O2 Saturation ABG Base Excess POC ABG pCO2 ABG Hemoglobin ABG Oxyhemoglobin ABG Sodium ABG Chloride ABG Glucose Oxyhemoglobin Sodium Potassium Chloride Carbon Dioxide BUN Creatinine Glucose POC Glucose 125 H 143 H 158 H Lactic Acid Calcium Phosphorus Magnesium AST ALT Lactate Dehydrogenase Total Bilirubin Direct Bilirubin CK-MB (CK-2) C-Reactive Protein NT-Pro-B Natriuret Pep Total Protein Albumin Arterial Blood Glucose Urine WBC (Auto) Urine Creatinine Digoxin 03/09/20 03/09/20 03/09/20 06:32 06:32 11:34 WBC RBC Hgb 9.8 L Hct 31.6 L MCHC 31 L RDW 23.1 H MCV 80 L MCH 25 L Lymph % (Auto) 35.1 H Holt % (Auto) 11.4 H Holt # Eos # Lymph # (Auto) Holt # (Auto) Eos # (Auto) Seg Neutrophils % Seg Neuts % (Manual) Baso # (Auto) Lymphocytes % (Manual) Monocytes % (Manual) Eosinophils % (Manual) Basophils % (Manual) Seg Neutrophils # Seg Neutrophils # Man Lymphocytes # (Manual) Monocytes # (Manual) Eosinophils # (Manual) Nucleated RBC % Basophils # (Manual) PT INR APTT Heparin Anti-Xa Level ABG pH POC ABG pO2 ABG pO2 ABG HCO3 ABG O2 Saturation ABG Base Excess POC ABG pCO2 ABG Hemoglobin ABG Oxyhemoglobin ABG Sodium ABG Chloride ABG Glucose Oxyhemoglobin Sodium 136 L Potassium Chloride Carbon Dioxide BUN 25 H Creatinine 0.6 L Glucose 170 H POC Glucose 140 H Lactic Acid Calcium Phosphorus Magnesium AST ALT Lactate Dehydrogenase Total Bilirubin Direct Bilirubin CK-MB (CK-2) C-Reactive Protein NT-Pro-B Natriuret Pep Total Protein Albumin Arterial Blood Glucose Urine WBC (Auto) Urine Creatinine Digoxin 03/09/20 03/09/20 03/10/20 18:10 23:11 05:41 WBC RBC Hgb Hct MCHC RDW MCV MCH Lymph % (Auto) Holt % (Auto) Holt # Eos # Lymph # (Auto) Holt # (Auto) Eos # (Auto) Seg Neutrophils % Seg Neuts % (Manual) Baso # (Auto) Lymphocytes % (Manual) Monocytes % (Manual) Eosinophils % (Manual) Basophils % (Manual) Seg Neutrophils # Seg Neutrophils # Man Lymphocytes # (Manual) Monocytes # (Manual) Eosinophils # (Manual) Nucleated RBC % Basophils # (Manual) PT INR APTT Heparin Anti-Xa Level ABG pH POC ABG pO2 ABG pO2 ABG HCO3 ABG O2 Saturation ABG Base Excess POC ABG pCO2 ABG Hemoglobin ABG Oxyhemoglobin ABG Sodium ABG Chloride ABG Glucose Oxyhemoglobin Sodium Potassium Chloride Carbon Dioxide BUN Creatinine Glucose POC Glucose 153 H 111 H 138 H Lactic Acid Calcium Phosphorus Magnesium AST ALT Lactate Dehydrogenase Total Bilirubin Direct Bilirubin CK-MB (CK-2) C-Reactive Protein NT-Pro-B Natriuret Pep Total Protein Albumin Arterial Blood Glucose Urine WBC (Auto) Urine Creatinine Digoxin 03/10/20 03/10/20 03/10/20 11:15 17:58 23:36 WBC RBC Hgb Hct MCHC RDW MCV MCH Lymph % (Auto) Holt % (Auto) Holt # Eos # Lymph # (Auto) Holt # (Auto) Eos # (Auto) Seg Neutrophils % Seg Neuts % (Manual) Baso # (Auto) Lymphocytes % (Manual) Monocytes % (Manual) Eosinophils % (Manual) Basophils % (Manual) Seg Neutrophils # Seg Neutrophils # Man Lymphocytes # (Manual) Monocytes # (Manual) Eosinophils # (Manual) Nucleated RBC % Basophils # (Manual) PT INR APTT Heparin Anti-Xa Level ABG pH POC ABG pO2 ABG pO2 ABG HCO3 ABG O2 Saturation ABG Base Excess POC ABG pCO2 ABG Hemoglobin ABG Oxyhemoglobin ABG Sodium ABG Chloride ABG Glucose Oxyhemoglobin Sodium Potassium Chloride Carbon Dioxide BUN Creatinine Glucose POC Glucose 141 H 149 H 148 H Lactic Acid Calcium Phosphorus Magnesium AST ALT Lactate Dehydrogenase Total Bilirubin Direct Bilirubin CK-MB (CK-2) C-Reactive Protein NT-Pro-B Natriuret Pep Total Protein Albumin Arterial Blood Glucose Urine WBC (Auto) Urine Creatinine Digoxin 03/11/20 03/11/20 03/12/20 05:55 17:43 04:45 WBC RBC Hgb Hct MCHC RDW MCV MCH Lymph % (Auto) Holt % (Auto) Holt # Eos # Lymph # (Auto) Holt # (Auto) Eos # (Auto) Seg Neutrophils % Seg Neuts % (Manual) Baso # (Auto) Lymphocytes % (Manual) Monocytes % (Manual) Eosinophils % (Manual) Basophils % (Manual) Seg Neutrophils # Seg Neutrophils # Man Lymphocytes # (Manual) Monocytes # (Manual) Eosinophils # (Manual) Nucleated RBC % Basophils # (Manual) PT INR APTT Heparin Anti-Xa Level ABG pH 7.454 H POC ABG pO2 69.2 L ABG pO2 ABG HCO3 ABG O2 Saturation ABG Base Excess POC ABG pCO2 ABG Hemoglobin 11.2 L ABG Oxyhemoglobin ABG Sodium 134.7 L ABG Chloride ABG Glucose 151 H Oxyhemoglobin Sodium Potassium Chloride Carbon Dioxide BUN Creatinine Glucose POC Glucose 181 H 107 H Lactic Acid Calcium Phosphorus Magnesium AST ALT Lactate Dehydrogenase Total Bilirubin Direct Bilirubin CK-MB (CK-2) C-Reactive Protein NT-Pro-B Natriuret Pep Total Protein Albumin Arterial Blood Glucose 151 H Urine WBC (Auto) Urine Creatinine Digoxin 03/12/20 03/12/20 03/12/20 05:36 11:36 17:40 WBC RBC Hgb Hct MCHC RDW MCV MCH Lymph % (Auto) Holt % (Auto) Holt # Eos # Lymph # (Auto) Holt # (Auto) Eos # (Auto) Seg Neutrophils % Seg Neuts % (Manual) Baso # (Auto) Lymphocytes % (Manual) Monocytes % (Manual) Eosinophils % (Manual) Basophils % (Manual) Seg Neutrophils # Seg Neutrophils # Man Lymphocytes # (Manual) Monocytes # (Manual) Eosinophils # (Manual) Nucleated RBC % Basophils # (Manual) PT INR APTT Heparin Anti-Xa Level ABG pH POC ABG pO2 ABG pO2 ABG HCO3 ABG O2 Saturation ABG Base Excess POC ABG pCO2 ABG Hemoglobin ABG Oxyhemoglobin ABG Sodium ABG Chloride ABG Glucose Oxyhemoglobin Sodium Potassium Chloride Carbon Dioxide BUN Creatinine Glucose POC Glucose 137 H 122 H 116 H Lactic Acid Calcium Phosphorus Magnesium AST ALT Lactate Dehydrogenase Total Bilirubin Direct Bilirubin CK-MB (CK-2) C-Reactive Protein NT-Pro-B Natriuret Pep Total Protein Albumin Arterial Blood Glucose Urine WBC (Auto) Urine Creatinine Digoxin 03/12/20 03/13/20 03/13/20 23:17 05:47 11:35 WBC RBC Hgb Hct MCHC RDW MCV MCH Lymph % (Auto) Holt % (Auto) Holt # Eos # Lymph # (Auto) Holt # (Auto) Eos # (Auto) Seg Neutrophils % Seg Neuts % (Manual) Baso # (Auto) Lymphocytes % (Manual) Monocytes % (Manual) Eosinophils % (Manual) Basophils % (Manual) Seg Neutrophils # Seg Neutrophils # Man Lymphocytes # (Manual) Monocytes # (Manual) Eosinophils # (Manual) Nucleated RBC % Basophils # (Manual) PT INR APTT Heparin Anti-Xa Level ABG pH POC ABG pO2 ABG pO2 ABG HCO3 ABG O2 Saturation ABG Base Excess POC ABG pCO2 ABG Hemoglobin ABG Oxyhemoglobin ABG Sodium ABG Chloride ABG Glucose Oxyhemoglobin Sodium Potassium Chloride Carbon Dioxide BUN Creatinine Glucose POC Glucose 118 H 142 H 146 H Lactic Acid Calcium Phosphorus Magnesium AST ALT Lactate Dehydrogenase Total Bilirubin Direct Bilirubin CK-MB (CK-2) C-Reactive Protein NT-Pro-B Natriuret Pep Total Protein Albumin Arterial Blood Glucose Urine WBC (Auto) Urine Creatinine Digoxin 03/13/20 03/13/20 03/14/20 17:25 23:27 05:04 WBC RBC Hgb Hct MCHC RDW MCV MCH Lymph % (Auto) Holt % (Auto) Holt # Eos # Lymph # (Auto) Holt # (Auto) Eos # (Auto) Seg Neutrophils % Seg Neuts % (Manual) Baso # (Auto) Lymphocytes % (Manual) Monocytes % (Manual) Eosinophils % (Manual) Basophils % (Manual) Seg Neutrophils # Seg Neutrophils # Man Lymphocytes # (Manual) Monocytes # (Manual) Eosinophils # (Manual) Nucleated RBC % Basophils # (Manual) PT INR APTT Heparin Anti-Xa Level ABG pH POC ABG pO2 ABG pO2 ABG HCO3 ABG O2 Saturation ABG Base Excess POC ABG pCO2 ABG Hemoglobin ABG Oxyhemoglobin ABG Sodium ABG Chloride ABG Glucose Oxyhemoglobin Sodium Potassium Chloride Carbon Dioxide BUN Creatinine Glucose POC Glucose 138 H 160 H 159 H Lactic Acid Calcium Phosphorus Magnesium AST ALT Lactate Dehydrogenase Total Bilirubin Direct Bilirubin CK-MB (CK-2) C-Reactive Protein NT-Pro-B Natriuret Pep Total Protein Albumin Arterial Blood Glucose Urine WBC (Auto) Urine Creatinine Digoxin 03/14/20 03/14/20 03/15/20 11:19 16:18 00:18 WBC RBC Hgb Hct MCHC RDW MCV MCH Lymph % (Auto) Holt % (Auto) Holt # Eos # Lymph # (Auto) Holt # (Auto) Eos # (Auto) Seg Neutrophils % Seg Neuts % (Manual) Baso # (Auto) Lymphocytes % (Manual) Monocytes % (Manual) Eosinophils % (Manual) Basophils % (Manual) Seg Neutrophils # Seg Neutrophils # Man Lymphocytes # (Manual) Monocytes # (Manual) Eosinophils # (Manual) Nucleated RBC % Basophils # (Manual) PT INR APTT Heparin Anti-Xa Level ABG pH POC ABG pO2 ABG pO2 ABG HCO3 ABG O2 Saturation ABG Base Excess POC ABG pCO2 ABG Hemoglobin ABG Oxyhemoglobin ABG Sodium ABG Chloride ABG Glucose Oxyhemoglobin Sodium Potassium Chloride Carbon Dioxide BUN Creatinine Glucose POC Glucose 130 H 170 H 125 H Lactic Acid Calcium Phosphorus Magnesium AST ALT Lactate Dehydrogenase Total Bilirubin Direct Bilirubin CK-MB (CK-2) C-Reactive Protein NT-Pro-B Natriuret Pep Total Protein Albumin Arterial Blood Glucose Urine WBC (Auto) Urine Creatinine Digoxin 03/15/20 03/15/20 03/15/20 04:05 04:05 05:36 WBC RBC Hgb 10.0 L Hct 31.6 L MCHC RDW 22.4 H MCV 77 L MCH 24 L Lymph % (Auto) 36.2 H Holt % (Auto) 9.4 H Holt # Eos # Lymph # (Auto) Holt # (Auto) Eos # (Auto) Seg Neutrophils % Seg Neuts % (Manual) Baso # (Auto) Lymphocytes % (Manual) Monocytes % (Manual) Eosinophils % (Manual) Basophils % (Manual) Seg Neutrophils # Seg Neutrophils # Man Lymphocytes # (Manual) Monocytes # (Manual) Eosinophils # (Manual) Nucleated RBC % Basophils # (Manual) PT INR APTT Heparin Anti-Xa Level ABG pH POC ABG pO2 ABG pO2 ABG HCO3 ABG O2 Saturation ABG Base Excess POC ABG pCO2 ABG Hemoglobin ABG Oxyhemoglobin ABG Sodium ABG Chloride ABG Glucose Oxyhemoglobin Sodium Potassium Chloride Carbon Dioxide 32 H BUN Creatinine 0.5 L Glucose 141 H POC Glucose 130 H Lactic Acid Calcium Phosphorus Magnesium AST ALT Lactate Dehydrogenase Total Bilirubin Direct Bilirubin CK-MB (CK-2) C-Reactive Protein NT-Pro-B Natriuret Pep Total Protein Albumin Arterial Blood Glucose Urine WBC (Auto) Urine Creatinine Digoxin 03/15/20 03/15/20 03/15/20 11:41 17:38 23:16 WBC RBC Hgb Hct MCHC RDW MCV MCH Lymph % (Auto) Holt % (Auto) Holt # Eos # Lymph # (Auto) Holt # (Auto) Eos # (Auto) Seg Neutrophils % Seg Neuts % (Manual) Baso # (Auto) Lymphocytes % (Manual) Monocytes % (Manual) Eosinophils % (Manual) Basophils % (Manual) Seg Neutrophils # Seg Neutrophils # Man Lymphocytes # (Manual) Monocytes # (Manual) Eosinophils # (Manual) Nucleated RBC % Basophils # (Manual) PT INR APTT Heparin Anti-Xa Level ABG pH POC ABG pO2 ABG pO2 ABG HCO3 ABG O2 Saturation ABG Base Excess POC ABG pCO2 ABG Hemoglobin ABG Oxyhemoglobin ABG Sodium ABG Chloride ABG Glucose Oxyhemoglobin Sodium Potassium Chloride Carbon Dioxide BUN Creatinine Glucose POC Glucose 114 H 144 H 116 H Lactic Acid Calcium Phosphorus Magnesium AST ALT Lactate Dehydrogenase Total Bilirubin Direct Bilirubin CK-MB (CK-2) C-Reactive Protein NT-Pro-B Natriuret Pep Total Protein Albumin Arterial Blood Glucose Urine WBC (Auto) Urine Creatinine Digoxin 03/16/20 03/16/20 03/16/20 05:39 13:16 18:29 WBC RBC Hgb Hct MCHC RDW MCV MCH Lymph % (Auto) Holt % (Auto) Holt # Eos # Lymph # (Auto) Holt # (Auto) Eos # (Auto) Seg Neutrophils % Seg Neuts % (Manual) Baso # (Auto) Lymphocytes % (Manual) Monocytes % (Manual) Eosinophils % (Manual) Basophils % (Manual) Seg Neutrophils # Seg Neutrophils # Man Lymphocytes # (Manual) Monocytes # (Manual) Eosinophils # (Manual) Nucleated RBC % Basophils # (Manual) PT INR APTT Heparin Anti-Xa Level ABG pH POC ABG pO2 ABG pO2 ABG HCO3 ABG O2 Saturation ABG Base Excess POC ABG pCO2 ABG Hemoglobin ABG Oxyhemoglobin ABG Sodium ABG Chloride ABG Glucose Oxyhemoglobin Sodium Potassium Chloride Carbon Dioxide BUN Creatinine Glucose POC Glucose 125 H 153 H 135 H Lactic Acid Calcium Phosphorus Magnesium AST ALT Lactate Dehydrogenase Total Bilirubin Direct Bilirubin CK-MB (CK-2) C-Reactive Protein NT-Pro-B Natriuret Pep Total Protein Albumin Arterial Blood Glucose Urine WBC (Auto) Urine Creatinine Digoxin 03/16/20 03/17/20 03/17/20 23:32 05:50 11:38 WBC RBC Hgb Hct MCHC RDW MCV MCH Lymph % (Auto) Holt % (Auto) Holt # Eos # Lymph # (Auto) Holt # (Auto) Eos # (Auto) Seg Neutrophils % Seg Neuts % (Manual) Baso # (Auto) Lymphocytes % (Manual) Monocytes % (Manual) Eosinophils % (Manual) Basophils % (Manual) Seg Neutrophils # Seg Neutrophils # Man Lymphocytes # (Manual) Monocytes # (Manual) Eosinophils # (Manual) Nucleated RBC % Basophils # (Manual) PT INR APTT Heparin Anti-Xa Level ABG pH POC ABG pO2 ABG pO2 ABG HCO3 ABG O2 Saturation ABG Base Excess POC ABG pCO2 ABG Hemoglobin ABG Oxyhemoglobin ABG Sodium ABG Chloride ABG Glucose Oxyhemoglobin Sodium Potassium Chloride Carbon Dioxide BUN Creatinine Glucose POC Glucose 137 H 160 H 134 H Lactic Acid Calcium Phosphorus Magnesium AST ALT Lactate Dehydrogenase Total Bilirubin Direct Bilirubin CK-MB (CK-2) C-Reactive Protein NT-Pro-B Natriuret Pep Total Protein Albumin Arterial Blood Glucose Urine WBC (Auto) Urine Creatinine Digoxin 03/17/20 03/17/20 03/18/20 16:59 23:29 05:39 WBC RBC Hgb Hct MCHC RDW MCV MCH Lymph % (Auto) Holt % (Auto) Holt # Eos # Lymph # (Auto) Holt # (Auto) Eos # (Auto) Seg Neutrophils % Seg Neuts % (Manual) Baso # (Auto) Lymphocytes % (Manual) Monocytes % (Manual) Eosinophils % (Manual) Basophils % (Manual) Seg Neutrophils # Seg Neutrophils # Man Lymphocytes # (Manual) Monocytes # (Manual) Eosinophils # (Manual) Nucleated RBC % Basophils # (Manual) PT INR APTT Heparin Anti-Xa Level ABG pH POC ABG pO2 ABG pO2 ABG HCO3 ABG O2 Saturation ABG Base Excess POC ABG pCO2 ABG Hemoglobin ABG Oxyhemoglobin ABG Sodium ABG Chloride ABG Glucose Oxyhemoglobin Sodium Potassium Chloride Carbon Dioxide BUN Creatinine Glucose POC Glucose 120 H 141 H 181 H Lactic Acid Calcium Phosphorus Magnesium AST ALT Lactate Dehydrogenase Total Bilirubin Direct Bilirubin CK-MB (CK-2) C-Reactive Protein NT-Pro-B Natriuret Pep Total Protein Albumin Arterial Blood Glucose Urine WBC (Auto) Urine Creatinine Digoxin 03/18/20 03/18/20 03/18/20 11:18 15:34 17:42 WBC RBC Hgb Hct MCHC RDW MCV MCH Lymph % (Auto) Holt % (Auto) Holt # Eos # Lymph # (Auto) Holt # (Auto) Eos # (Auto) Seg Neutrophils % Seg Neuts % (Manual) Baso # (Auto) Lymphocytes % (Manual) Monocytes % (Manual) Eosinophils % (Manual) Basophils % (Manual) Seg Neutrophils # Seg Neutrophils # Man Lymphocytes # (Manual) Monocytes # (Manual) Eosinophils # (Manual) Nucleated RBC % Basophils # (Manual) PT INR APTT Heparin Anti-Xa Level ABG pH POC ABG pO2 ABG pO2 ABG HCO3 ABG O2 Saturation ABG Base Excess POC ABG pCO2 ABG Hemoglobin ABG Oxyhemoglobin ABG Sodium ABG Chloride ABG Glucose Oxyhemoglobin Sodium 132 L Potassium 5.4 H D Chloride 96.8 L Carbon Dioxide BUN 24 H Creatinine 0.6 L Glucose 164 H POC Glucose 142 H 118 H Lactic Acid Calcium Phosphorus Magnesium AST ALT Lactate Dehydrogenase Total Bilirubin Direct Bilirubin CK-MB (CK-2) C-Reactive Protein NT-Pro-B Natriuret Pep Total Protein 6.2 L Albumin 2.8 L Arterial Blood Glucose Urine WBC (Auto) Urine Creatinine Digoxin 03/18/20 03/19/20 03/19/20 23:57 05:40 07:50 WBC RBC Hgb Hct MCHC RDW MCV MCH Lymph % (Auto) Holt % (Auto) Holt # Eos # Lymph # (Auto) Holt # (Auto) Eos # (Auto) Seg Neutrophils % Seg Neuts % (Manual) Baso # (Auto) Lymphocytes % (Manual) Monocytes % (Manual) Eosinophils % (Manual) Basophils % (Manual) Seg Neutrophils # Seg Neutrophils # Man Lymphocytes # (Manual) Monocytes # (Manual) Eosinophils # (Manual) Nucleated RBC % Basophils # (Manual) PT INR APTT Heparin Anti-Xa Level ABG pH POC ABG pO2 ABG pO2 ABG HCO3 ABG O2 Saturation ABG Base Excess POC ABG pCO2 ABG Hemoglobin ABG Oxyhemoglobin ABG Sodium ABG Chloride ABG Glucose Oxyhemoglobin Sodium 136 L Potassium Chloride 97.3 L Carbon Dioxide 31 H BUN 22 H Creatinine 0.5 L Glucose 160 H POC Glucose 127 H 136 H Lactic Acid Calcium Phosphorus Magnesium AST ALT Lactate Dehydrogenase Total Bilirubin Direct Bilirubin CK-MB (CK-2) C-Reactive Protein NT-Pro-B Natriuret Pep Total Protein Albumin Arterial Blood Glucose Urine WBC (Auto) Urine Creatinine Digoxin 03/19/20 03/19/20 03/20/20 12:21 17:27 00:31 WBC RBC Hgb Hct MCHC RDW MCV MCH Lymph % (Auto) Holt % (Auto) Holt # Eos # Lymph # (Auto) Holt # (Auto) Eos # (Auto) Seg Neutrophils % Seg Neuts % (Manual) Baso # (Auto) Lymphocytes % (Manual) Monocytes % (Manual) Eosinophils % (Manual) Basophils % (Manual) Seg Neutrophils # Seg Neutrophils # Man Lymphocytes # (Manual) Monocytes # (Manual) Eosinophils # (Manual) Nucleated RBC % Basophils # (Manual) PT INR APTT Heparin Anti-Xa Level ABG pH POC ABG pO2 ABG pO2 ABG HCO3 ABG O2 Saturation ABG Base Excess POC ABG pCO2 ABG Hemoglobin ABG Oxyhemoglobin ABG Sodium ABG Chloride ABG Glucose Oxyhemoglobin Sodium Potassium Chloride Carbon Dioxide BUN Creatinine Glucose POC Glucose 147 H 152 H 132 H Lactic Acid Calcium Phosphorus Magnesium AST ALT Lactate Dehydrogenase Total Bilirubin Direct Bilirubin CK-MB (CK-2) C-Reactive Protein NT-Pro-B Natriuret Pep Total Protein Albumin Arterial Blood Glucose Urine WBC (Auto) Urine Creatinine Digoxin 03/20/20 03/20/20 03/20/20 05:59 11:45 17:24 WBC RBC Hgb Hct MCHC RDW MCV MCH Lymph % (Auto) Holt % (Auto) Holt # Eos # Lymph # (Auto) Holt # (Auto) Eos # (Auto) Seg Neutrophils % Seg Neuts % (Manual) Baso # (Auto) Lymphocytes % (Manual) Monocytes % (Manual) Eosinophils % (Manual) Basophils % (Manual) Seg Neutrophils # Seg Neutrophils # Man Lymphocytes # (Manual) Monocytes # (Manual) Eosinophils # (Manual) Nucleated RBC % Basophils # (Manual) PT INR APTT Heparin Anti-Xa Level ABG pH POC ABG pO2 ABG pO2 ABG HCO3 ABG O2 Saturation ABG Base Excess POC ABG pCO2 ABG Hemoglobin ABG Oxyhemoglobin ABG Sodium ABG Chloride ABG Glucose Oxyhemoglobin Sodium Potassium Chloride Carbon Dioxide BUN Creatinine Glucose POC Glucose 146 H 142 H 107 H Lactic Acid Calcium Phosphorus Magnesium AST ALT Lactate Dehydrogenase Total Bilirubin Direct Bilirubin CK-MB (CK-2) C-Reactive Protein NT-Pro-B Natriuret Pep Total Protein Albumin Arterial Blood Glucose Urine WBC (Auto) Urine Creatinine Digoxin 03/20/20 03/21/20 03/21/20 23:38 05:38 11:22 WBC RBC Hgb Hct MCHC RDW MCV MCH Lymph % (Auto) Holt % (Auto) Holt # Eos # Lymph # (Auto) Holt # (Auto) Eos # (Auto) Seg Neutrophils % Seg Neuts % (Manual) Baso # (Auto) Lymphocytes % (Manual) Monocytes % (Manual) Eosinophils % (Manual) Basophils % (Manual) Seg Neutrophils # Seg Neutrophils # Man Lymphocytes # (Manual) Monocytes # (Manual) Eosinophils # (Manual) Nucleated RBC % Basophils # (Manual) PT INR APTT Heparin Anti-Xa Level ABG pH POC ABG pO2 ABG pO2 ABG HCO3 ABG O2 Saturation ABG Base Excess POC ABG pCO2 ABG Hemoglobin ABG Oxyhemoglobin ABG Sodium ABG Chloride ABG Glucose Oxyhemoglobin Sodium Potassium Chloride Carbon Dioxide BUN Creatinine Glucose POC Glucose 115 H 133 H 137 H Lactic Acid Calcium Phosphorus Magnesium AST ALT Lactate Dehydrogenase Total Bilirubin Direct Bilirubin CK-MB (CK-2) C-Reactive Protein NT-Pro-B Natriuret Pep Total Protein Albumin Arterial Blood Glucose Urine WBC (Auto) Urine Creatinine Digoxin 03/21/20 03/22/20 03/22/20 18:26 00:10 05:29 WBC RBC Hgb Hct MCHC RDW MCV MCH Lymph % (Auto) Holt % (Auto) Holt # Eos # Lymph # (Auto) Holt # (Auto) Eos # (Auto) Seg Neutrophils % Seg Neuts % (Manual) Baso # (Auto) Lymphocytes % (Manual) Monocytes % (Manual) Eosinophils % (Manual) Basophils % (Manual) Seg Neutrophils # Seg Neutrophils # Man Lymphocytes # (Manual) Monocytes # (Manual) Eosinophils # (Manual) Nucleated RBC % Basophils # (Manual) PT INR APTT Heparin Anti-Xa Level ABG pH POC ABG pO2 ABG pO2 ABG HCO3 ABG O2 Saturation ABG Base Excess POC ABG pCO2 ABG Hemoglobin ABG Oxyhemoglobin ABG Sodium ABG Chloride ABG Glucose Oxyhemoglobin Sodium Potassium Chloride Carbon Dioxide BUN Creatinine Glucose POC Glucose 200 H 123 H 156 H Lactic Acid Calcium Phosphorus Magnesium AST ALT Lactate Dehydrogenase Total Bilirubin Direct Bilirubin CK-MB (CK-2) C-Reactive Protein NT-Pro-B Natriuret Pep Total Protein Albumin Arterial Blood Glucose Urine WBC (Auto) Urine Creatinine Digoxin 03/22/20 03/22/20 03/22/20 06:39 06:39 06:39 WBC RBC Hgb 9.7 L Hct 30.7 L MCHC RDW 22.2 H MCV 77 L MCH 25 L Lymph % (Auto) Holt % (Auto) 9.0 H Holt # Eos # Lymph # (Auto) Holt # (Auto) Eos # (Auto) Seg Neutrophils % Seg Neuts % (Manual) Baso # (Auto) Lymphocytes % (Manual) Monocytes % (Manual) Eosinophils % (Manual) Basophils % (Manual) Seg Neutrophils # Seg Neutrophils # Man Lymphocytes # (Manual) Monocytes # (Manual) Eosinophils # (Manual) Nucleated RBC % Basophils # (Manual) PT INR APTT Heparin Anti-Xa Level ABG pH POC ABG pO2 ABG pO2 ABG HCO3 ABG O2 Saturation ABG Base Excess POC ABG pCO2 ABG Hemoglobin ABG Oxyhemoglobin ABG Sodium ABG Chloride ABG Glucose Oxyhemoglobin Sodium Potassium Chloride Carbon Dioxide 33 H BUN Creatinine 0.5 L Glucose 147 H POC Glucose Lactic Acid Calcium Phosphorus Magnesium AST ALT Lactate Dehydrogenase Total Bilirubin Direct Bilirubin CK-MB (CK-2) C-Reactive Protein NT-Pro-B Natriuret Pep Total Protein Albumin Arterial Blood Glucose Urine WBC (Auto) Urine Creatinine Digoxin 0.8 L 03/22/20 03/22/20 03/22/20 11:22 17:49 23:38 WBC RBC Hgb Hct MCHC RDW MCV MCH Lymph % (Auto) Holt % (Auto) Holt # Eos # Lymph # (Auto) Holt # (Auto) Eos # (Auto) Seg Neutrophils % Seg Neuts % (Manual) Baso # (Auto) Lymphocytes % (Manual) Monocytes % (Manual) Eosinophils % (Manual) Basophils % (Manual) Seg Neutrophils # Seg Neutrophils # Man Lymphocytes # (Manual) Monocytes # (Manual) Eosinophils # (Manual) Nucleated RBC % Basophils # (Manual) PT INR APTT Heparin Anti-Xa Level ABG pH POC ABG pO2 ABG pO2 ABG HCO3 ABG O2 Saturation ABG Base Excess POC ABG pCO2 ABG Hemoglobin ABG Oxyhemoglobin ABG Sodium ABG Chloride ABG Glucose Oxyhemoglobin Sodium Potassium Chloride Carbon Dioxide BUN Creatinine Glucose POC Glucose 159 H 119 H 129 H Lactic Acid Calcium Phosphorus Magnesium AST ALT Lactate Dehydrogenase Total Bilirubin Direct Bilirubin CK-MB (CK-2) C-Reactive Protein NT-Pro-B Natriuret Pep Total Protein Albumin Arterial Blood Glucose Urine WBC (Auto) Urine Creatinine Digoxin 03/23/20 03/23/20 03/23/20 05:02 11:38 17:01 WBC RBC Hgb Hct MCHC RDW MCV MCH Lymph % (Auto) Holt % (Auto) Holt # Eos # Lymph # (Auto) Holt # (Auto) Eos # (Auto) Seg Neutrophils % Seg Neuts % (Manual) Baso # (Auto) Lymphocytes % (Manual) Monocytes % (Manual) Eosinophils % (Manual) Basophils % (Manual) Seg Neutrophils # Seg Neutrophils # Man Lymphocytes # (Manual) Monocytes # (Manual) Eosinophils # (Manual) Nucleated RBC % Basophils # (Manual) PT INR APTT Heparin Anti-Xa Level ABG pH POC ABG pO2 ABG pO2 ABG HCO3 ABG O2 Saturation ABG Base Excess POC ABG pCO2 ABG Hemoglobin ABG Oxyhemoglobin ABG Sodium ABG Chloride ABG Glucose Oxyhemoglobin Sodium Potassium Chloride Carbon Dioxide BUN Creatinine Glucose POC Glucose 136 H 129 H 122 H Lactic Acid Calcium Phosphorus Magnesium AST ALT Lactate Dehydrogenase Total Bilirubin Direct Bilirubin CK-MB (CK-2) C-Reactive Protein NT-Pro-B Natriuret Pep Total Protein Albumin Arterial Blood Glucose Urine WBC (Auto) Urine Creatinine Digoxin 03/23/20 03/24/20 03/24/20 23:35 06:55 11:43 WBC RBC Hgb Hct MCHC RDW MCV MCH Lymph % (Auto) Holt % (Auto) Holt # Eos # Lymph # (Auto) Holt # (Auto) Eos # (Auto) Seg Neutrophils % Seg Neuts % (Manual) Baso # (Auto) Lymphocytes % (Manual) Monocytes % (Manual) Eosinophils % (Manual) Basophils % (Manual) Seg Neutrophils # Seg Neutrophils # Man Lymphocytes # (Manual) Monocytes # (Manual) Eosinophils # (Manual) Nucleated RBC % Basophils # (Manual) PT INR APTT Heparin Anti-Xa Level ABG pH POC ABG pO2 ABG pO2 ABG HCO3 ABG O2 Saturation ABG Base Excess POC ABG pCO2 ABG Hemoglobin ABG Oxyhemoglobin ABG Sodium ABG Chloride ABG Glucose Oxyhemoglobin Sodium Potassium Chloride Carbon Dioxide BUN Creatinine Glucose POC Glucose 115 H 122 H 135 H Lactic Acid Calcium Phosphorus Magnesium AST ALT Lactate Dehydrogenase Total Bilirubin Direct Bilirubin CK-MB (CK-2) C-Reactive Protein NT-Pro-B Natriuret Pep Total Protein Albumin Arterial Blood Glucose Urine WBC (Auto) Urine Creatinine Digoxin 03/24/20 03/24/20 03/25/20 17:18 23:27 05:45 WBC RBC Hgb Hct MCHC RDW MCV MCH Lymph % (Auto) Holt % (Auto) Holt # Eos # Lymph # (Auto) Holt # (Auto) Eos # (Auto) Seg Neutrophils % Seg Neuts % (Manual) Baso # (Auto) Lymphocytes % (Manual) Monocytes % (Manual) Eosinophils % (Manual) Basophils % (Manual) Seg Neutrophils # Seg Neutrophils # Man Lymphocytes # (Manual) Monocytes # (Manual) Eosinophils # (Manual) Nucleated RBC % Basophils # (Manual) PT INR APTT Heparin Anti-Xa Level ABG pH POC ABG pO2 ABG pO2 ABG HCO3 ABG O2 Saturation ABG Base Excess POC ABG pCO2 ABG Hemoglobin ABG Oxyhemoglobin ABG Sodium ABG Chloride ABG Glucose Oxyhemoglobin Sodium Potassium Chloride Carbon Dioxide BUN Creatinine Glucose POC Glucose 125 H 124 H 176 H Lactic Acid Calcium Phosphorus Magnesium AST ALT Lactate Dehydrogenase Total Bilirubin Direct Bilirubin CK-MB (CK-2) C-Reactive Protein NT-Pro-B Natriuret Pep Total Protein Albumin Arterial Blood Glucose Urine WBC (Auto) Urine Creatinine Digoxin 03/25/20 03/25/20 11:15 17:00 WBC RBC Hgb Hct MCHC RDW MCV MCH Lymph % (Auto) Holt % (Auto) Holt # Eos # Lymph # (Auto) Holt # (Auto) Eos # (Auto) Seg Neutrophils % Seg Neuts % (Manual) Baso # (Auto) Lymphocytes % (Manual) Monocytes % (Manual) Eosinophils % (Manual) Basophils % (Manual) Seg Neutrophils # Seg Neutrophils # Man Lymphocytes # (Manual) Monocytes # (Manual) Eosinophils # (Manual) Nucleated RBC % Basophils # (Manual) PT INR APTT Heparin Anti-Xa Level ABG pH POC ABG pO2 ABG pO2 ABG HCO3 ABG O2 Saturation ABG Base Excess POC ABG pCO2 ABG Hemoglobin ABG Oxyhemoglobin ABG Sodium ABG Chloride ABG Glucose Oxyhemoglobin Sodium Potassium Chloride Carbon Dioxide BUN Creatinine Glucose POC Glucose 147 H 111 H Lactic Acid Calcium Phosphorus Magnesium AST ALT Lactate Dehydrogenase Total Bilirubin Direct Bilirubin CK-MB (CK-2) C-Reactive Protein NT-Pro-B Natriuret Pep Total Protein Albumin Arterial Blood Glucose Urine WBC (Auto) Urine Creatinine Digoxin Chest x-ray: pending Allied health notes reviewed: nursing
[2020-03-25] MEDS ORDERED: FUROSEMIDE 40 MG/4 ML INJ IV ONE (18:23)
[2020-03-25] MEDS: TAMSULOSIN 0.4 MG CAP PO SCH (22:34)
[2020-03-25] MEDS: POLYETHYLENE GLYCOL 3350 17 GM POWDER PO SCH (22:35)
[2020-03-26] MEDS: INSULIN REGULAR, HUMAN 100 UNIT/ML 3ML VIAL SUB-Q SCH ×4 (00:40→18:35)
[2020-03-26 06:19] LABS: Blood Urea Nitrogen 19 mg/dL (9-20); Calcium 8.9 mg/dL (8.4-10.2); Hemolysis Index 10
[2020-03-26 06:33] LABS: BUN/Creatinine Ratio 32
--- NOTE | 2020-03-26 08:41 | Progress Note ---
Assessment and Plan Assessment and plan: -Intractable nausea; check for residual feeding IV Zofran as needed, supportive care --Acute on chronic hypoxemic respiratory failure; Patient has tracheostomy on vent On CPAP trial Continue nebulizers, , trach care Wean off ventilator as tolerated Pulmonary critical following --Acute exacerbation of COPD; Patient is currently on ventilatory support Continue nebulizers --Left lower lobe PE; Continue Eliquis, ventilatory support --Acute right lower extremity DVT; Patient is on Eliquis --Bilateral multifocal pneumonia/community-acquired Completed antibiotics, improved --Severe sepsis/bilateral pneumonia: Completed antibiotics COVID-19 test; 11/24/2019; negative 11/26/2019; negative 12/29/2019: Negative --Paroxysmal atrial fibrillation; Now rate controlled, Stable on amiodarone and Eliquis --Acute on chronic combined systolic and diastolic congestive heart failure Ischemic cardiomyopathy left ventricular ejection fraction 40 to 45% --H/o CAD [[facility] 12/2018 in-stent restenosis] Patient is stable on current cardiac medications --Hypertensive emergency; present on admission Reasonable blood pressures, continue current antihypertensives As needed medications --History of alcohol abuse/alcohol withdrawal; Was on CIWA protocol, now stable --Oropharyngeal dysphagia; status post PEG placement Continue PEG feeds per protocol --History of partial small bowel obstruction; resolved Surgery evaluated. --Obesity; BMI 34.7 Patient needs weight reduction when medically stable --Severe protein calorie malnutrition/hypoalbuminemia Nutrition supplements, dietitian following, PEG feeds --DVT prophylaxis;Eliquis --Full CODE STATUS 03/19/2020. Continue current vent per pulmonary recommendations. Pressure support ventilation trials as tolerated. Continue trach care, secretion control and airway management. Mobility protocols for pressure ulcer prophylaxis. 03/20/2020. Rate better controlled on digoxin and metoprolol per cardiology. Patient currently off amiodarone due to elevated liver enzymes. Continue anticoagulation with Eliquis. IV metoprolol as needed. No statins for now secondary to elevated liver enzymes. Patient remains on AC mode ventilation rate 12, tidal volume 450, FiO2 30% and PEEP of 6. Cont. PSV as figueroa. Continue trach care, secretion control and airway management. Mobility protocols for pressure ulcer prophylaxis. Patient is uninsured and his only d/c option is to return home with family. 03/21/2020. Patient still with elevated heart rate but better on digoxin and metoprolol per cardiology. Patient currently off amiodarone due to elevated li ian enzymes. Continue anticoagulation with Eliquis. IV metoprolol as needed. No statins for now secondary to elevated liver enzymes. Patient remains on AC mode mechanical ventilation with rate 12, tidal volume 450, FiO2 30% and PEEP of 6. Continue PSV trials as tolerated. Continue trach care, secretion control and airway management. Mobility protocols for pressure ulcer prophylaxis. Patient is uninsured and his only d/c option is to return home with family. 03/22/2020; patient remains on ventilatory support, continue to wean as tolerated, trach care Awaiting LTAC placement, however patient has multiple social issues, mobility protocols blood pressure ulcers DVT prophylaxis, will continue current management 03/23/2020; patient remains on ventilatory support, tracheostomy, on CPAP trial 03/25/2020; patient with tracheostomy remains on ventilatory support, complains of mild nausea 03/26/2020; clinically no change, tracheostomy on vent, unable to wean The high probability of a clinically significant, sudden or life threatening deterioration of the [Respiratory, cardiovascular & neurological] system(s) required my full and direct attention, intervention and personal management. The aggregate critical care time was [35] minutes without overlap. Time includes spent on [x] Data Review and interpretation [x] Patient assessment and monitoring of vital signs [x] Documentation [x] Medication orders and management Plan of care reviewed with the patient and his nurse History Interval history: I have seen and examined the patient at the bedside Patient's chart and medications reviewed patient with tracheostomy on vent on Ventilatory support Vital signs noted Hospitalist Physical - Constitutional Vitals: Temp Pulse Resp BP Pulse Ox 98.9 F 112 H 17 98/74 100 03/26/20 04:00 03/26/20 08:34 03/26/20 06:00 03/26/20 08:34 03/26/20 08:34 General appearance: Present: no acute distress, well-nourished, other (Tracheostomy on vent) - EENT Eyes: Present: PERRL, EOM intact ENT: other (Tracheostomy on vent) - Neck Neck: Present: supple, normal ROM - Respiratory Respiratory effort: normal Respiratory: bilateral: diminished, rhonchi, negative: rales, wheezing - Cardiovascular Rhythm: regular Heart Sounds: Present: S1 & S2 - Extremities Extremities: no ischemia, No edema - Abdominal General gastrointestinal: soft, non-tender, non-distended, normal bowel sounds - Integumentary Integumentary: Present: clear, warm - Psychiatric Psychiatric: appropriate mood/affect, other (Patient is alert and awake anxious) - Neurologic Neurologic: other (On ventilatory support) HEART Score - HEART Score Troponin: Troponin T < 0.010 ng/mL (0.00-0.029) 01/19/20 01:35 Results - Labs CBC & Chem 7: 03/22/20 06:39 03/26/20 04:20 Labs: Laboratory Last Values WBC 6.0 K/mm3 (4.5-11.0) 03/22/20 06:39 RBC 3.97 M/mm3 (3.65-5.03) 03/22/20 06:39 Hgb 9.7 gm/dl (11.8-15.2) L 03/22/20 06:39 Hct 30.7 % (35.5-45.6) L 03/22/20 06:39 MCV 77 fl (84-94) L 03/22/20 06:39 MCH 25 pg (28-32) L 03/22/20 06:39 MCHC 32 % (32-34) 03/22/20 06:39 RDW 22.2 % (13.2-15.2) H 03/22/20 06:39 Plt Count 166 K/mm3 (140-440) 03/22/20 06:39 Lymph % (Auto) 32.8 % (13.4-35.0) 03/22/20 06:39 [place] % (Auto) 9.0 % (0.0-7.3) H 03/22/20 06:39 Eos % (Auto) 2.4 % (0.0-4.3) 03/22/20 06:39 Baso % (Auto) 0.3 % (0.0-1.8) 03/22/20 06:39 Lymph # (Auto) 2.0 K/mm3 (1.2-5.4) 03/22/20 06:39 [place] # (Auto) 0.5 K/mm3 (0.0-0.8) 03/22/20 06:39 Eos # (Auto) 0.1 K/mm3 (0.0-0.4) 03/22/20 06:39 Baso # (Auto) 0.0 K/mm3 (0.0-0.1) 03/22/20 06:39 Add Manual Diff Complete 02/15/20 06:59 Total Counted 100 02/15/20 06:59 Seg Neuts % (Manual) 58.0 % (40.0-70.0) 02/15/20 06:59 Band Neutrophils % 0 % 02/15/20 06:59 Seg Neutrophils % 55.5 % (40.0-70.0) 03/22/20 06:39 Lymphocytes % (Manual) 34.0 % (13.4-35.0) 02/15/20 06:59 Reactive Lymphs % (Man) 1.0 % 02/15/20 06:59 Monocytes % (Manual) 4.0 % (0.0-7.3) 02/15/20 06:59 Eosinophils % (Manual) 0 % (0.0-4.3) 02/15/20 06:59 Basophils % (Manual) 2.0 % (0.0-1.8) H 02/15/20 06:59 Metamyelocytes % 1.0 % 02/15/20 06:59 Myelocytes % 0 % 02/15/20 06:59 Promyelocytes % 0 % 02/15/20 06:59 Blast Cells % 0 % 02/15/20 06:59 Nucleated RBC % 1.0 % (0.0-0.9) H 02/15/20 06:59 Seg Neutrophils # Man 5.9 K/mm3 (1.8-7.7) 02/15/20 06:59 Seg Neutrophils # 3.4 K/mm3 (1.8-7.7) 03/22/20 06:39 Band Neutrophils # 0.0 K/mm3 02/15/20 06:59 Lymphocytes # (Manual) 3.5 K/mm3 (1.2-5.4) 02/15/20 06:59 Abs React Lymphs (Man) 0.1 K/mm3 02/15/20 06:59 Monocytes # (Manual) 0.4 K/mm3 (0.0-0.8) 02/15/20 06:59 Eosinophils # (Manual) 0.0 K/mm3 (0.0-0.4) 02/15/20 06:59 Basophils # (Manual) 0.2 K/mm3 (0.0-0.1) H 02/15/20 06:59 Metamyelocytes # 0.1 K/mm3 02/15/20 06:59 Myelocytes # 0.0 K/mm3 02/15/20 06:59 Promyelocytes # 0.0 K/mm3 02/15/20 06:59 Blast Cells # 0.0 K/mm3 02/15/20 06:59 WBC Morphology Not Reportable 02/15/20 06:59 Hypersegmented Neuts Not Reportable 02/15/20 06:59 Hyposegmented Neuts Not Reportable 02/15/20 06:59 Hypogranular Neuts Not Reportable 02/15/20 06:59 Smudge Cells Not Reportable 02/15/20 06:59 Toxic Granulation Not Reportable 02/15/20 06:59 Toxic Vacuolation Not Reportable 02/15/20 06:59 Dohle Bodies Not Reportable 02/15/20 06:59 Pelger-Huet Anomaly Not Reportable 02/15/20 06:59 Hector Rods Not Reportable 02/15/20 06:59 Platelet Estimate Consistent w auto 02/15/20 06:59 Clumped Platelets Not Reportable 02/15/20 06:59 Plt Clumps, EDTA Not Reportable 02/15/20 06:59 Large Platelets Not Reportable 02/15/20 06:59 Giant Platelets Not Reportable 02/15/20 06:59 Platelet Satelliting Not Reportable 02/15/20 06:59 Plt Morphology Comment Giant platelets 02/15/20 06:59 RBC Morphology Not Reportable 02/15/20 06:59 Dimorphic RBCs Not Reportable 02/15/20 06:59 Polychromasia Not Reportable 02/15/20 06:59 Hypochromasia 1+ 02/15/20 06:59 Poikilocytosis Few 02/15/20 06:59 Anisocytosis 1+ 02/15/20 06:59 Microcytosis Not Reportable 02/15/20 06:59 Macrocytosis Not Reportable 02/15/20 06:59 Spherocytes Not Reportable 02/15/20 06:59 Pappenheimer Bodies Not Reportable 02/15/20 06:59 Sickle Cells Not Reportable 02/15/20 06:59 Target Cells 1+ 02/15/20 06:59 Tear Drop Cells Few 02/15/20 06:59 Ovalocytes Not Reportable 02/15/20 06:59 Helmet Cells Not Reportable 02/15/20 06:59 Gottlieb-Corder Bodies Not Reportable 02/15/20 06:59 [place] Rings Not Reportable 02/15/20 06:59 Oc Cells Not Reportable 02/15/20 06:59 Bite Cells Not Reportable 02/15/20 06:59 Crenated Cell Not Reportable 02/15/20 06:59 Elliptocytes Few 02/15/20 06:59 Acanthocytes (Spur) Not Reportable 02/15/20 06:59 Rouleaux Not Reportable 02/15/20 06:59 Hemoglobin C Crystals Not Reportable 02/15/20 06:59 Schistocytes Not Reportable 02/15/20 06:59 Malaria parasites Not Reportable 02/15/20 06:59 Clifford Bodies Not Reportable 02/15/20 06:59 Hem Pathologist Commnt No 02/15/20 06:59 PT 27.0 Sec. (12.2-14.9) H 02/07/20 15:03 INR 2.46 (0.87-1.13) H 02/07/20 15:03 APTT 31.5 Sec. (24.2-36.6) 01/22/20 09:58 Heparin Anti-Xa Level 1.34 U.I./ml (0.3-0.7) H 01/22/20 04:45 ABG pH 7.454 (7.320-7.450) H 03/12/20 04:45 POC ABG pCO2 45.6 mmHg (32.0-48.0) 03/12/20 04:45 ABG pCO2 47.8 mm Hg 02/20/20 06:45 POC ABG pO2 69.2 mmHg (83-108) L 03/12/20 04:45 ABG pO2 88.7 mm Hg (80.0-90.0) 02/20/20 06:45 POC ABG HCO3 31.3 03/12/20 04:45 ABG HCO3 33.3 mmol/L (20.0-26.0) H 02/20/20 06:45 ABG O2 Saturation 97.2 % (95.0-99.0) 02/20/20 06:45 ABG O2 Content 13.3 (0.0-44) 02/20/20 06:45 POC ABG Base Excess 6.5 03/12/20 04:45 ABG Base Excess 8.4 mmol/L (-2.0-3.0) H 02/20/20 06:45 ABG Hemoglobin 11.2 (12.0-17.5) L 03/12/20 04:45 ABG Oxyhemoglobin 84 (94-98) L 12/22/19 03:22 ABG Carboxyhemoglobin 2.9 % (0.0-5.0) 02/20/20 06:45 ABG Methemoglobin 0.4 % (0.0-1.5) 02/20/20 06:45 ABG Sodium 134.7 mmol/L (136.0-145.0) L 03/12/20 04:45 ABG Potassium 3.9 mmol/L (3.40-4.50) 03/12/20 04:45 ABG Chloride 98.0 mmol/L (98-107) 03/12/20 04:45 ABG Glucose 151 mg/dL (65-95) H 03/12/20 04:45 Oxyhemoglobin 94.1 % (95.0-99.0) L 02/20/20 06:45 Carboxyhemoglobin 0.7 (0.5-1.5) 12/22/19 03:22 FiO2 30 03/12/20 04:45 Sodium 140 mmol/L (137-145) 03/26/20 04:20 Potassium 4.3 mmol/L (3.6-5.0) 03/26/20 04:20 Chloride 99.3 mmol/L (98-107) 03/26/20 04:20 Carbon Dioxide 26 mmol/L (22-30) D 03/26/20 04:20 Anion Gap 19 mmol/L 03/26/20 04:20 BUN 19 mg/dL (9-20) 03/26/20 04:20 Creatinine 0.6 mg/dL (0.8-1.3) L 03/26/20 04:20 Estimated GFR > 60 ml/min 03/26/20 04:20 BUN/Creatinine Ratio 32 % 03/26/20 04:20 Glucose 182 mg/dL (75-100) H 03/26/20 04:20 POC Glucose 158 mg/dL (70-105) H 03/26/20 05:28 Lactic Acid 1.60 mmol/L (0.7-2.0) 02/03/20 12:49 Ferritin 84.4 ng/mL (30.0-300.0) 11/24/19 04:53 Calcium 8.9 mg/dL (8.4-10.2) 03/26/20 04:20 Phosphorus 4.10 mg/dL (2.5-4.5) 01/31/20 19:24 Magnesium 2.40 mg/dL (1.7-2.3) H 02/10/20 07:40 Total Bilirubin 0.90 mg/dL (0.1-1.2) 03/18/20 15:34 Direct Bilirubin 0.9 mg/dL (0-0.2) H 02/08/20 19:00 Indirect Bilirubin 0.4 mg/dL 02/08/20 19:00 Total Creatine Kinase 141 units/L (55-170) 11/24/19 02:53 CK-MB (CK-2) 4.3 ng/mL (0.0-4.0) H 11/24/19 02:53 AST 23 units/L (5-40) 03/18/20 15:34 CK-MB (CK-2) Rel Index 3.0 (0-4) 11/24/19 02:53 ALT 22 units/L (7-56) 03/18/20 15:34 Alkaline Phosphatase 96 units/L (35-129) 03/18/20 15:34 C-Reactive Protein 8.50 mg/dL (0.00-1.30) H 12/01/19 12:16 Ammonia 35.0 umol/L (25-60) 02/03/20 12:49 Lactate Dehydrogenase 228 units/L (91-180) H 12/19/19 04:45 Troponin T < 0.010 ng/mL (0.00-0.029) 01/19/20 01:35 NT-Pro-B Natriuret Pep 3866 pg/mL (0-900) H 01/01/20 10:40 Total Protein 6.2 g/dL (6.3-8.2) L 03/18/20 15:34 Albumin 2.8 g/dL (3.9-5) L 03/18/20 15:34 Albumin/Globulin Ratio 0.8 % 03/18/20 15:34 Procalcitonin 0.44 ng/mL (<0.15) 02/03/20 12:49 Arterial Blood Glucose 151 mg/dL (65-95) H 03/12/20 04:45 Arterial Blood Ionized Calcium 4.8 mg/dL (4.6-5.3) 03/12/20 04:45 Urine Color Cecy (Yellow) 02/26/20 07:50 Urine Turbidity Clear (Clear) 02/26/20 07:50 Urine pH 5.0 (5.0-7.0) 02/26/20 07:50 Ur Specific [place] 1.025 (1.003-1.030) 02/26/20 07:50 Urine Protein 30 mg/dl mg/dL (Negative) 02/26/20 07:50 Urine Glucose (UA) Neg mg/dL (Negative) 02/26/20 07:50 Urine Ketones Neg mg/dL (Negative) 02/26/20 07:50 Urine Blood Sm (Negative) 02/26/20 07:50 Urine Nitrite Neg (Negative) 02/26/20 07:50 Urine Bilirubin Neg (Negative) 02/26/20 07:50 Urine Urobilinogen 4.0 mg/dL (<2.0) 02/26/20 07:50 Ur Leukocyte Esterase Lg (Negative) 02/26/20 07:50 Urine WBC (Auto) > 182.0 /HPF (0.0-6.0) H 02/26/20 07:50 Urine RBC (Auto) 84.0 /HPF (0.0-6.0) 02/26/20 07:50 U Epithel Cells (Auto) 2.0 /HPF (0-13.0) 12/31/19 18:04 Urine Bacteria (Auto) 4+ /HPF (Negative) 02/26/20 07:50 Urine WBC Clumps 2+ /HPF 02/26/20 07:50 Urine Mucus 1+ /HPF 02/26/20 07:50 Urine Creatinine 57.4 mg/dL (0.1-20.0) H 01/31/20 Unknown Urine Sodium 59 mmol/L 01/31/20 Unknown Vancomycin Trough 14.2 ug/mL (5.0-20.0) 12/13/19 15:01 Digoxin 0.8 ng/mL (0.9-2.0) L 03/22/20 06:39 Coronavirus (PCR) Negative (Negative) 12/29/19 10:07 Hepatitis A IgM Ab Non-reactive (NonReactive) 02/05/20 06:37 Hep Bs Antigen Non-reactive (Negative) 02/05/20 06:37 Hep B Core IgM Ab Non-reactive (NonReactive) 02/05/20 06:37 Hepatitis C Antibody Non-reactive (NonReactive) 02/05/20 06:37 Blood Type O POSITIVE 01/21/20 13:00 Antibody Screen Negative 01/21/20 13:00 - Diagnostic Impressions Diagnostic Impressions: Echocardiogram 11/29/19 07:37 Transthoracic Echocardiogram Indication: CHF BP: 116/72 HR: 33 Conclusions *The study is technically limited due to poor acoustic windows. *Global left ventricular systolic function is normal. *The estimated ejection fraction is 50-55%. *Mild concentric left ventricular hypertrophy is observed. *There is trace of mitral regurgitation. *There is mild tricuspid regurgitation. Findings Procedure Info: The study quality is poor. The study is technically limited due to poor acoustic windows. The study is technically limited due to patient body habitus. Left Ventricle: The left ventricular chamber size is normal. Mild concentric left ventricular hypertrophy is observed. Global left ventricular systolic function is normal. The estimated ejection fraction is 50-55%. Left Atrium: The left atrial chamber size is normal. Right Ventricle: The right ventricular cavity size is normal. Right Atrium: The right atrial cavity size is normal. Aortic Valve: The aortic valve leaflets are moderately thickened. There is trace of aortic regurgitation. There is no evidence of aortic stenosis. Mitral Valve: The mitral valve leaflets are mildly thickened. There is trace of mitral regurgitation. There is no evidence of mitral stenosis. Tricuspid Valve: There is mild tricuspid regurgitation. No pulmonary hypertension is noted. Pulmonic Valve: There is trace pulmonic regurgitation. Pericardium: There is no pericardial effusion. Aorta: There is no dilatation of the aortic root. Venous: The inferior vena cava appears normal in size. Contrast: Definity was used to optimize study. Intravenous contrast was used to enhance endocardial border definition. Measurements Chambers 2D Name Value Normal Range Ao root diameter (2D) 3.4 cm (2 - 3.7) Aortic Valve Name Value Normal Range AV Vmax 0.98 m/sec - AV VTI 16.76 cm - AV peak gradient 3.83 mmHg - AV mean gradient 2.57 mmHg - LVOT diameter 3.11 cm - LVOT Vmax 0.68 m/sec - LVOT VTI 11.52 cm - LVOT peak gradient 1.84 mmHg - LVOT mean gradient 1.27 mmHg - SV LVOT 87.31 ml - MALOU (continuity Vmax) 5.24 cm2 - MALOU (continuity VTI) 5.21 cm2 - Tricuspid Valve Name Value Normal Range IVC diameter 2.24 cm (1.2 - 2.3) Hoffman/IV: Voiding Method Indwelling Catheter IV Catheter Type [Left INT / Saline Lock Antecubital] IV Catheter Type [Right INT / Saline Lock Forearm] IV Catheter Type [Right Hand] Peripheral IV IV Catheter Type [Right Upper INT / Saline Lock arm] IV Catheter Type [Left Upper Mid-line arm] IV Catheter Type [Left Forearm Peripheral IV ] IV Catheter Type [Left Hand] Peripheral IV IV Catheter Type [Left Wrist] INT / Saline Lock IV Catheter Type [Right Peripheral IV Antecubital] Active Medications - Current Medications Current Medications: Generic Name Dose Route Start Last Admin Trade Name Freq PRN Reason Stop Dose Admin Acetaminophen 650 mg 03/12/20 04:29 03/25/20 00:18 Acetaminophen 325 Mg/10.15 Ml Oral Liqd Unit Dose FEEDTUBE 650 mg Q6H PRN Administration Pain, Mild (1-3) Lipase/Protease/Amylase 1 each 01/09/20 12:01 03/18/20 11:09 Lipase 10,500/Protease 25,000/Amylase 43,750 (Units) Dr Lauren FEEDTUBE 1 each PRN PRN Administration For Clogged Feeding Tube Apixaban 5 mg 01/22/20 22:00 03/25/20 22:34 Apixaban 5 Mg Tab PO 5 mg Q12HR CAR Administration Protocol Atorvastatin Calcium 40 mg 01/20/20 22:00 03/25/20 22:34 Atorvastatin 40 Mg Tab PO 40 mg QHS CAR Administration Clopidogrel Bisulfate 75 mg 01/21/20 06:00 03/25/20 10:48 Clopidogrel 75 Mg Tab PO 75 mg QDAY CAR Administration Dextrose 50 ml 01/31/20 18:51 02/05/20 00:56 D50w (25gm) Syringe IV 50 ml Q30MIN PRN Administration Hypoglycemia Protocol Digoxin 0.125 mg 02/25/20 17:00 03/25/20 17:12 Digoxin 0.125 Mg Tab PO 0.125 mg DAILY@1700 CAR Administration Docusate Sodium 100 mg 02/22/20 10:00 03/25/20 22:34 Docusate Sodium 100 Mg/10 Ml Oral Liqd FEEDTUBE 100 mg BID CAR Administration Furosemide 20 mg 03/26/20 10:00 Furosemide 20 Mg Tab PO QDAY CAR Glycopyrrolate 2 mg 02/24/20 21:00 03/25/20 22:34 Glycopyrrolate 2 Mg Tab PO 2 mg TID CAR Administration Haloperidol Lactate 5 mg 02/10/20 14:20 03/19/20 23:26 Haloperidol Lactate 5 Mg/1 Ml Inj IV 5 mg Q6H PRN Administration Agitation Hydrophilic Ointment 1 applic 01/17/20 15:26 02/24/20 23:20 Lip Therapy Vaseline TP 1 applic DIRECT PRN Administration Dry Lips Insulin Human Regular 0 unit 02/01/20 18:00 03/26/20 06:29 Humulin R SUB-Q 1 unit Q6H CAR Administration Protocol Lansoprazole 30 mg 02/05/20 16:00 03/25/20 10:48 Lansoprazole 30 Mg Solutab FEEDTUBE 30 mg QDAY CAR Administration Metoprolol Tartrate 5 mg 01/11/20 08:00 03/18/20 16:52 Metoprolol Tartrate 5 Mg/5 Ml Inj IV 5 mg Q6H PRN Administration SEE INSTRUCTIONS Metoprolol Tartrate 12.5 mg 02/28/20 12:00 03/25/20 22:35 Metoprolol FEEDTUBE 12.5 mg BID CAR Administration Midodrine 15 mg 02/04/20 16:00 03/25/20 17:12 Midodrine 5 Mg Tab PO 15 mg TID@0800,1200,1600 CAR Administration Morphine Sulfate 2 mg 01/06/20 15:41 03/25/20 08:29 Morphine 2 Mg/1 Ml Inj IV 2 mg Q4H PRN Administration Pain, Moderate (4-6) Multi-Ingred Cream/Lotion/Oil/Oint 1 applic 02/01/20 15:52 Artificial Tears Ophth Oint OU Q4HR PRN Dry Eye(s) Nitroglycerin 0.4 mg 01/19/20 21:09 01/20/20 03:03 Nitroglycerin 0.4 Mg Tab Subl SL 0.4 mg .Q5MIN PRN Administration Chest Pain Ondansetron HCl 4 mg 03/25/20 08:01 Ondansetron 4 Mg/2 Ml Inj IV Q4H PRN Nausea And Vomiting Polyethylene Glycol 17 gm 12/04/19 22:00 03/25/20 22:35 Miralax 3350 PO 17 gm QHS CAR Administration Quetiapine Fumarate 300 mg 01/13/20 22:00 03/25/20 22:34 Quetiapine 100 Mg Tab PO 300 mg BID CAR Administration Simple Syrup 15 ml 01/09/20 12:01 Simple Syrup 15 Ml FEEDTUBE PRN PRN Hypoglycemia Simple Syrup 30 ml 01/09/20 12:01 Simple Syrup 15 Ml FEEDTUBE PRN PRN Hypoglycemia Sodium Bicarbonate 325 mg 01/09/20 12:01 03/07/20 12:56 Sodium Bicarbonate 325 Mg Tab FEEDTUBE 325 mg PRN PRN Administration For Clogged Feeding Tube Sodium Chloride 10 ml 11/24/19 10:00 03/25/20 22:35 Sodium Chloride 0.9% 10 Ml Flush Syringe IV 10 ml BID CAR Administration Tamsulosin HCl 0.8 mg 12/20/19 22:00 03/25/20 22:34 Tamsulosin 0.4 Mg Cap PO 0.8 mg QHS CAR Administration Nutrition/Malnutrition Assess - Dietary Evaluation Nutrition/Malnutrition Findings: Nutrition Notes Start: 11/24/19 12:22 Freq: Status: Active Protocol: Document 03/22/20 11:05 LM (Rec: 03/22/20 11:10 LM [email or web address]) Nutrition Notes Initial or Follow up Reassessment Current Diagnosis Coronary Artery Disease,Heart Failure,Respiratory Failure, Stroke,Hyperlipidemia Other Pertinent Diagnosis pneumonia Current Diet Osmolite 1.5 at 65ml/hr Labs/Tests Reviewed Pertinent Medications Humulin Height 6 ft 2 in Weight 130.5 kg [place] Body Weight (kg) 86.36 BMI 36.9 Weight change and time frame Wt change noted. Pt with edema . Weight Status Obese Subjective/Other Information TF running at 55ml/hr. Per RN pt tolerates TF at lower rate and pt vomits when rate is at 65ml/hr. 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 Yes Is Patient Ambulatory and/or Out of Bed No REE-([facility]-confined to bed) 2608.188 Kcal/Kg value to use for calculation 16 Approximate Energy Requirements Using 2088 kcal/Kg Calculation Used for Recommendations Kcal/kg Additional Notes Protein needs are 173g ( greater than 2g/kg IBW) Fluid needs are 1 ml/kcal Nutrition Intervention Change Diet Order: Continue TF via PEG Nutrition Support: Osmolite 1.5 at 65 ml/hr. Flush 200 ml q4h. Kcal 2,340 Protein (gm) 98 Fluid (mL) 1,189 Goal #1 Meet at least 75% of pt's energy and protein needs via TF Goal #2 TF tolerance Anticipated Discharge Needs: unable to determine at this time Follow-Up By: 03/28/20 Additional Comments F/U for TF tolerance
[2020-03-26] MEDS: MIDODRINE 5 MG TAB PO SCH ×3 (08:44→16:23)
[2020-03-26] MEDS: GLYCOPYRROLATE 2 MG TAB PO SCH ×3 (08:44→20:58)
[2020-03-26] MEDS: QUEtiapine 100 MG TAB PO SCH ×2 (09:26→21:00)
[2020-03-26] MEDS: CLOPIDOGREL 75 MG TAB PO SCH (09:26)
[2020-03-26] MEDS: LANSOPRAZOLE 30 MG SOLUTAB FEEDTUBE SCH (09:26)
[2020-03-26] MEDS: METOPROLOL TARTRATE 25 MG TAB FEEDTUBE SCH ×3 (09:27→21:37)
[2020-03-26] MEDS: FUROSEMIDE 20 MG TAB PO SCH (09:27)
[2020-03-26] MEDS: APIXABAN 5 MG TAB PO SCH ×2 (09:27→21:00)
[2020-03-26] MEDS: DOCUSATE SODIUM 100 MG/10 ML ORAL LIQD FEEDTUBE SCH ×2 (09:27→21:01)
--- NOTE | 2020-03-26 10:22 | Progress Note ---
Assessment and Plan - Patient Problems (1) Paroxysmal atrial fibrillation Current Visit: Yes Status: Acute Plan to address problem: Continue current management of atrial fibrillation on a rate control strategy and oral anticoagulation, stable cardiac status. Subjective Date of service: 03/26/20 Principal diagnosis: Ac hypoxemic resp failure; Pneumonia; PUI COVID-19; CHF; COPD; HTN Interval history: Patient is awake, on the vent via his trach. Heart rate is 120s, atrial fibrillation. Objective Vital Signs Temp Pulse Pulse Resp BP Pulse Ox Pulse Ox 03/26/20 09:27 126 H 101/78 03/26/20 08:34 112 H 98/74 100 03/26/20 08:00 97.5 F L 03/26/20 06:00 110 H 17 93/73 100 03/26/20 05:30 121 H 20 93/73 99 03/26/20 05:00 105 H 19 111/74 100 03/26/20 04:30 117 H 18 109/60 99 03/26/20 04:00 98.9 F 106 H 15 102/79 98 03/26/20 03:30 119 H 17 102/79 100 03/26/20 03:00 116 H 20 99/67 99 03/26/20 02:30 114 H 25 H 98/62 97 03/26/20 02:00 104 H 18 108/70 98 03/26/20 01:30 115 H 16 99/75 99 03/26/20 01:00 130 H 25 H 99/75 98 03/26/20 00:30 123 H 28 H 97/72 97 03/26/20 00:25 121 H 97/72 100 03/26/20 00:00 98.2 F 112 H 22 97/72 98 100 03/25/20 23:30 99 H 14 97/70 100 03/25/20 23:00 126 H 18 106/82 99 03/25/20 22:35 127 H 106/82 03/25/20 22:30 113 H 14 91/56 91 03/25/20 22:00 107 H 19 98/50 98 03/25/20 21:30 115 H 19 93/58 99 03/25/20 21:00 107 H 18 105/79 97 03/25/20 20:30 122 H 22 105/79 99 03/25/20 20:00 97.8 F 133 H 24 105/79 98 03/25/20 19:31 121 H 18 92/69 100 03/25/20 19:09 120 H 92/69 100 03/25/20 19:01 119 H 19 92/ 99 03/25/20 18:31 131 H 18 96/71 100 03/25/20 18:04 116 H 22 96/71 98 03/25/20 18:01 123 H 22 96/71 99 03/25/20 17:55 100 03/25/20 17:27 117 H 98/61 98 03/25/20 17:12 125 H 98/61 03/25/20 17:01 112 H 21 98/61 98 03/25/20 16:01 130 H 31 H 97/68 96 03/25/20 16:00 98.8 F 123 H 105 H 20 98 03/25/20 15:00 126 H 19 97/68 99 03/25/20 14:01 127 H 21 89/67 99 03/25/20 13:01 116 H 19 102/73 99 03/25/20 12:01 115 H 13 95/ 99 03/25/20 12:00 99 F 117 H 105 H 20 98 03/25/20 11:20 123 H 18 99/77 94 03/25/20 11:00 105 H 19 10176 95 03/25/20 10:48 124 H 101/ - Physical Examination General: No Apparent Distress, Other (s/p trach) HEENT: Positive: PERRL Neck: Positive: neck supple, Other (s/p trach) Cardiac: Positive: irregularly irregular Lungs: Positive: Decreased Breath Sounds Neuro: Positive: Grossly Intact, Weakness Abdomen: Positive: Soft Skin: Positive: Clear Extremities: Absent: edema - Labs and Meds Comprehensive Metabolic Panel 03/26/20 Range/Units 04:20 Sodium 140 (137-145) mmol/L Potassium 4.3 (3.6-5.0) mmol/L Chloride 99.3 (98-107) mmol/L Carbon Dioxide 26 D (22-30) mmol/L BUN 19 (9-20) mg/dL Creatinine 0.6 L (0.8-1.3) mg/dL Glucose 182 H (75-100) mg/dL Calcium 8.9 (8.4-10.2) mg/dL - Allied health notes Allied health notes reviewed: nursing
[2020-03-26] MEDS: ONDANSETRON 4 MG/2 ML INJ IV PRN ×2 (10:59→21:21)
[2020-03-26] MEDS: ALPRAZolam 0.5 MG TAB PO PRN ×2 (10:59→21:21)
--- NOTE | 2020-03-26 12:12 | Progress Note ---
Assessment and Plan Patient sleeping at this time. Patient undergoing spontaneous breathing trial with pressure support of 16, FIO2 30%, PEEP 6 and O2 saturation running 100%. Patients blood pressure running slightly low. Patient also tachycardic. Otherwise patient tolerating present ventilator settings good. Patient afebrile. No leukocytosis. Chest xray done 03/10/20reported Mild CHF. Patient is on Apixaban and prevacid. Continue spontaneous breathing trials as tolerated. - Patient Problems (1) Acute respiratory failure Current Visit: Yes Status: Acute Plan to address problem: Patient is on mechanical ventilation Pressure support 16, FIO2 30%, PEEP 6. Albuterol/atrovent aerosol treatments. Continue apixaban Continue prevacid. Continue spontaneous breathing trials. (2) COPD exacerbation Current Visit: No Status: Acute Plan to address problem: Patient is on mechanical ventilation Pressure support 16, FIO2 30%, PEEP 6. Albuterol/atrovent aerosol treatments. Continue apixaban Continue prevacid. Continue spontaneous breathing trials. (3) Bilateral pneumonia Current Visit: Yes Status: Acute Plan to address problem: Chest xray 03/10/20 reported CHF Patient afebrile. No leukocytosis. (4) CHF exacerbation Current Visit: Yes Status: Acute Plan to address problem: Management as per cardiology. (5) Cardiomyopathy Current Visit: Yes Status: Acute Plan to address problem: Management as per cardiology. (6) Pancreatic lesion Current Visit: Yes Status: Acute Plan to address problem: Management as per primary care. (7) Paroxysmal atrial fibrillation Current Visit: Yes Status: Acute Plan to address problem: Patient is on apixaban. Management as per cardiology. (8) CVA (cerebral vascular accident) Current Visit: No Status: Acute Qualifiers: Precerebral and cerebral artery: middle cerebral artery Laterality of affected vessel: right Plan to address problem: Management as per primary care. (9) Cocaine dependence Current Visit: No Status: Acute Plan to address problem: Management as per primary care. (10) HTN (hypertension) Current Visit: No Status: Acute Qualifiers: Hypertension type: essential hypertension Qualified Code(s): I10 - Essential (primary) hypertension Plan to address problem: Management as per primary care. (11) Nicotine dependence Current Visit: No Status: Acute Qualifiers: Nicotine product type: cigarettes Substance use status: in withdrawal Qualified Code(s): F17.213 - Nicotine dependence, cigarettes, with withdrawal Plan to address problem: Counseled to stop smoking. (12) Obesity hypoventilation syndrome Current Visit: No Status: Acute Plan to address problem: Patient S/P tracheostomy and on mechanical ventilation. Subjective Date of service: 03/26/20 Principal diagnosis: Ac hypoxemic resp failure; Pneumonia; PUI COVID-19; CHF; COPD; HTN Interval history: Patient sleeping at this time. Patient undergoing spontaneous breathing trial with pressure support of 16, FIO2 30%, PEEP 6 and O2 saturation running 100%. Patients blood pressure running slightly low. Patient also tachycardic. Otherwise patient tolerating present ventilator settings good. Patient afebrile. No leukocytosis. Chest xray done 03/10/20reported Mild CHF. Patient is on Apixaban and prevacid. Continue spontaneous breathing trials as tolerated. Objective Vital Signs - 12hr 03/26/20 03/26/20 03/26/20 00:25 00:30 01:00 Temperature Pulse Rate 121 H 123 H 130 H Respiratory 28 H 25 H Rate Blood Pressure 97/72 97/72 99/75 O2 Sat by Pulse 100 97 98 Oximetry O2 Sat by Pulse Oximetry [ Assessment] 03/26/20 03/26/20 03/26/20 01:30 02:00 02:30 Temperature Pulse Rate 115 H 104 H 114 H Respiratory 16 18 25 H Rate Blood Pressure 99/75 108/70 98/62 O2 Sat by Pulse 99 98 97 Oximetry O2 Sat by Pulse Oximetry [ Assessment] 03/26/20 03/26/20 03/26/20 03:00 03:30 04:00 Temperature 98.9 F Pulse Rate 116 H 119 H 106 H Respiratory 20 17 15 Rate Blood Pressure 99/67 102/79 102/79 O2 Sat by Pulse 99 100 98 Oximetry O2 Sat by Pulse Oximetry [ Assessment] 03/26/20 03/26/20 03/26/20 04:30 05:00 05:30 Temperature Pulse Rate 117 H 105 H 121 H Respiratory 18 19 20 Rate Blood Pressure 109/60 111/74 93/73 O2 Sat by Pulse 99 100 99 Oximetry O2 Sat by Pulse Oximetry [ Assessment] 03/26/20 03/26/20 03/26/20 06:00 08:00 08:34 Temperature 97.5 F L Pulse Rate 110 H 112 H Respiratory 17 Rate Blood Pressure 93/73 98/74 O2 Sat by Pulse 100 100 Oximetry O2 Sat by Pulse Oximetry [ Assessment] 03/26/20 03/26/20 03/26/20 09:27 11:26 11:46 Temperature Pulse Rate 126 H 115 H 130 H Respiratory 21 Rate Blood Pressure 101/78 100/64 87/60 O2 Sat by Pulse 99 98 Oximetry O2 Sat by Pulse Oximetry [ Assessment] 03/26/20 11:52 Temperature Pulse Rate Respiratory Rate Blood Pressure O2 Sat by Pulse Oximetry O2 Sat by Pulse 98 Oximetry [ Assessment] Constitutional: no acute distress, asleep, other (elderly and obese male, normocephalic with mildly increased respiratory effort at rest) Eyes: non-icteric ENT: oropharynx moist, other (+ midline tracheostomy) Neck: supple, no JVD Effort: mildly labored Ascultation: Bilateral: diminished breath sounds, rhonchi (scant), other (tracheal secretions ) Percussion: Bilateral: not dull Cardiovascular: irregular rhythm Gastrointestinal: normoactive bowel sounds, soft, non-tender, non-distended (protuberant), other (protuberant; PEG in place) Integumentary: normal Extremities: no cyanosis, pulses normal, no ischemia or petechiae, edema (2+) Neurologic: non-focal exam (grossly; moves extremities), pupils equal and round, unable to assess Psychiatric: mood appropriate, affect normal CBC and BMP: 03/22/20 06:39 03/26/20 04:20 ABG, PT/INR, D-dimer: ABG ABG pH 7.454 (7.320-7.450) H 03/12/20 04:45 POC ABG pCO2 45.6 mmHg (32.0-48.0) 03/12/20 04:45 ABG pCO2 47.8 mm Hg 02/20/20 06:45 POC ABG pO2 69.2 mmHg (83-108) L 03/12/20 04:45 ABG pO2 88.7 mm Hg (80.0-90.0) 02/20/20 06:45 POC ABG HCO3 31.3 03/12/20 04:45 ABG O2 Saturation 97.2 % (95.0-99.0) 02/20/20 06:45 PT/INR, D-dimer PT 27.0 Sec. (12.2-14.9) H 02/07/20 15:03 INR 2.46 (0.87-1.13) H 02/07/20 15:03 Abnormal lab findings: Abnormal Labs 11/24/19 11/24/19 11/24/19 02:53 02:53 03:45 WBC 14.3 H RBC Hgb Hct MCHC RDW 17.2 H MCV MCH Lymph % (Auto) [place] % (Auto) [place] # Eos # Lymph # (Auto) [place] # (Auto) Eos # (Auto) Seg Neutrophils % Seg Neuts % (Manual) Baso # (Auto) Lymphocytes % (Manual) Monocytes % (Manual) Eosinophils % (Manual) Basophils % (Manual) Seg Neutrophils # Seg Neutrophils # Man 8.3 H Lymphocytes # (Manual) Monocytes # (Manual) 0.9 H Eosinophils # (Manual) Nucleated RBC % Basophils # (Manual) PT INR APTT Heparin Anti-Xa Level ABG pH 7.313 L POC ABG pO2 ABG pO2 102.8 H ABG HCO3 ABG O2 Saturation ABG Base Excess -2.9 L POC ABG pCO2 ABG Hemoglobin ABG Oxyhemoglobin ABG Sodium ABG Chloride ABG Glucose Oxyhemoglobin 93.9 L Sodium Potassium Chloride Carbon Dioxide BUN Creatinine Glucose 195 H POC Glucose Lactic Acid Calcium Phosphorus Magnesium AST ALT Lactate Dehydrogenase Total Bilirubin Direct Bilirubin CK-MB (CK-2) 4.3 H C-Reactive Protein NT-Pro-B Natriuret Pep 1181 H Total Protein Albumin Arterial Blood Glucose Urine WBC (Auto) Urine Creatinine Digoxin 11/24/19 11/24/19 11/24/19 04:53 04:53 10:37 WBC RBC Hgb Hct MCHC RDW MCV MCH Lymph % (Auto) [place] % (Auto) [place] # Eos # Lymph # (Auto) [place] # (Auto) Eos # (Auto) Seg Neutrophils % Seg Neuts % (Manual) Baso # (Auto) Lymphocytes % (Manual) Monocytes % (Manual) Eosinophils % (Manual) Basophils % (Manual) Seg Neutrophils # Seg Neutrophils # Man Lymphocytes # (Manual) Monocytes # (Manual) Eosinophils # (Manual) Nucleated RBC % Basophils # (Manual) PT INR APTT Heparin Anti-Xa Level ABG pH POC ABG pO2 ABG pO2 ABG HCO3 ABG O2 Saturation ABG Base Excess POC ABG pCO2 ABG Hemoglobin ABG Oxyhemoglobin ABG Sodium ABG Chloride ABG Glucose Oxyhemoglobin Sodium Potassium Chloride Carbon Dioxide BUN Creatinine Glucose 162 H POC Glucose Lactic Acid 2.40 H* 2.50 H* Calcium Phosphorus Magnesium AST ALT Lactate Dehydrogenase 240 H Total Bilirubin Direct Bilirubin CK-MB (CK-2) C-Reactive Protein NT-Pro-B Natriuret Pep Total Protein Albumin Arterial Blood Glucose Urine WBC (Auto) Urine Creatinine Digoxin 11/24/19 11/24/19 11/24/19 12:21 14:50 19:54 WBC RBC Hgb Hct MCHC RDW MCV MCH Lymph % (Auto) [place] % (Auto) [place] # Eos # Lymph # (Auto) [place] # (Auto) Eos # (Auto) Seg Neutrophils % Seg Neuts % (Manual) Baso # (Auto) Lymphocytes % (Manual) Monocytes % (Manual) Eosinophils % (Manual) Basophils % (Manual) Seg Neutrophils # Seg Neutrophils # Man Lymphocytes # (Manual) Monocytes # (Manual) Eosinophils # (Manual) Nucleated RBC % Basophils # (Manual) PT INR APTT Heparin Anti-Xa Level ABG pH POC ABG pO2 ABG pO2 ABG HCO3 ABG O2 Saturation ABG Base Excess POC ABG pCO2 ABG Hemoglobin ABG Oxyhemoglobin ABG Sodium ABG Chloride ABG Glucose Oxyhemoglobin Sodium Potassium Chloride Carbon Dioxide BUN Creatinine Glucose POC Glucose 145 H 143 H 124 H Lactic Acid Calcium Phosphorus Magnesium AST ALT Lactate Dehydrogenase Total Bilirubin Direct Bilirubin CK-MB (CK-2) C-Reactive Protein NT-Pro-B Natriuret Pep Total Protein Albumin Arterial Blood Glucose Urine WBC (Auto) Urine Creatinine Digoxin 11/25/19 11/25/19 11/25/19 00:18 03:18 05:11 WBC 13.7 H RBC Hgb Hct MCHC RDW 17.1 H MCV MCH Lymph % (Auto) 10.8 L [place] % (Auto) 8.7 H [place] # 1.2 H Eos # Lymph # (Auto) [place] # (Auto) Eos # (Auto) Seg Neutrophils % 80.2 H Seg Neuts % (Manual) Baso # (Auto) Lymphocytes % (Manual) Monocytes % (Manual) Eosinophils % (Manual) Basophils % (Manual) Seg Neutrophils # 11.0 H Seg Neutrophils # Man Lymphocytes # (Manual) Monocytes # (Manual) Eosinophils # (Manual) Nucleated RBC % Basophils # (Manual) PT INR APTT Heparin Anti-Xa Level ABG pH 7.333 L POC ABG pO2 ABG pO2 61.2 L ABG HCO3 ABG O2 Saturation 90.2 L ABG Base Excess POC ABG pCO2 ABG Hemoglobin 13.7 L ABG Oxyhemoglobin ABG Sodium ABG Chloride ABG Glucose Oxyhemoglobin 88.2 L Sodium Potassium Chloride Carbon Dioxide BUN Creatinine Glucose POC Glucose 109 H Lactic Acid Calcium Phosphorus Magnesium AST ALT Lactate Dehydrogenase Total Bilirubin Direct Bilirubin CK-MB (CK-2) C-Reactive Protein NT-Pro-B Natriuret Pep Total Protein Albumin Arterial Blood Glucose Urine WBC (Auto) Urine Creatinine Digoxin 11/25/19 11/25/19 11/26/19 05:11 11:40 03:12 WBC RBC Hgb Hct MCHC RDW MCV MCH Lymph % (Auto) [place] % (Auto) [place] # Eos # Lymph # (Auto) [place] # (Auto) Eos # (Auto) Seg Neutrophils % Seg Neuts % (Manual) Baso # (Auto) Lymphocytes % (Manual) Monocytes % (Manual) Eosinophils % (Manual) Basophils % (Manual) Seg Neutrophils # Seg Neutrophils # Man Lymphocytes # (Manual) Monocytes # (Manual) Eosinophils # (Manual) Nucleated RBC % Basophils # (Manual) PT INR APTT Heparin Anti-Xa Level ABG pH POC ABG pO2 ABG pO2 155.1 H ABG HCO3 27.8 H ABG O2 Saturation ABG Base Excess POC ABG pCO2 ABG Hemoglobin 12.2 L ABG Oxyhemoglobin ABG Sodium ABG Chloride ABG Glucose Oxyhemoglobin Sodium Potassium Chloride Carbon Dioxide BUN 23 H Creatinine Glucose 110 H POC Glucose 108 H Lactic Acid Calcium Phosphorus Magnesium AST ALT Lactate Dehydrogenase Total Bilirubin Direct Bilirubin CK-MB (CK-2) C-Reactive Protein NT-Pro-B Natriuret Pep Total Protein Albumin Arterial Blood Glucose Urine WBC (Auto) Urine Creatinine Digoxin 11/26/19 11/26/19 11/26/19 06:17 10:43 10:43 WBC 11.4 H RBC Hgb Hct MCHC RDW 17.1 H MCV MCH Lymph % (Auto) [place] % (Auto) [place] # Eos # Lymph # (Auto) [place] # (Auto) Eos # (Auto) Seg Neutrophils % Seg Neuts % (Manual) Baso # (Auto) Lymphocytes % (Manual) Monocytes % (Manual) Eosinophils % (Manual) Basophils % (Manual) Seg Neutrophils # Seg Neutrophils # Man Lymphocytes # (Manual) Monocytes # (Manual) Eosinophils # (Manual) Nucleated RBC % Basophils # (Manual) PT INR APTT Heparin Anti-Xa Level ABG pH POC ABG pO2 ABG pO2 ABG HCO3 ABG O2 Saturation ABG Base Excess POC ABG pCO2 ABG Hemoglobin ABG Oxyhemoglobin ABG Sodium ABG Chloride ABG Glucose Oxyhemoglobin Sodium Potassium Chloride Carbon Dioxide BUN 29 H Creatinine Glucose POC Glucose 107 H Lactic Acid Calcium Phosphorus Magnesium AST ALT Lactate Dehydrogenase Total Bilirubin Direct Bilirubin CK-MB (CK-2) C-Reactive Protein NT-Pro-B Natriuret Pep Total Protein Albumin Arterial Blood Glucose Urine WBC (Auto) Urine Creatinine Digoxin 11/26/19 11/27/19 11/27/19 17:11 01:53 04:11 WBC RBC Hgb Hct MCHC RDW MCV MCH Lymph % (Auto) [place] % (Auto) [place] # Eos # Lymph # (Auto) [place] # (Auto) Eos # (Auto) Seg Neutrophils % Seg Neuts % (Manual) Baso # (Auto) Lymphocytes % (Manual) Monocytes % (Manual) Eosinophils % (Manual) Basophils % (Manual) Seg Neutrophils # Seg Neutrophils # Man Lymphocytes # (Manual) Monocytes # (Manual) Eosinophils # (Manual) Nucleated RBC % Basophils # (Manual) PT INR APTT Heparin Anti-Xa Level ABG pH POC ABG pO2 ABG pO2 ABG HCO3 29.2 H ABG O2 Saturation ABG Base Excess 3.4 H POC ABG pCO2 ABG Hemoglobin 13.3 L ABG Oxyhemoglobin ABG Sodium ABG Chloride ABG Glucose Oxyhemoglobin 94.5 L Sodium Potassium Chloride Carbon Dioxide BUN Creatinine Glucose POC Glucose 113 H 108 H Lactic Acid Calcium Phosphorus Magnesium AST ALT Lactate Dehydrogenase Total Bilirubin Direct Bilirubin CK-MB (CK-2) C-Reactive Protein NT-Pro-B Natriuret Pep Total Protein Albumin Arterial Blood Glucose Urine WBC (Auto) Urine Creatinine Digoxin 11/27/19 11/28/19 11/28/19 05:27 05:00 05:25 WBC RBC Hgb Hct MCHC RDW MCV MCH Lymph % (Auto) [place] % (Auto) [place] # Eos # Lymph # (Auto) [place] # (Auto) Eos # (Auto) Seg Neutrophils % Seg Neuts % (Manual) Baso # (Auto) Lymphocytes % (Manual) Monocytes % (Manual) Eosinophils % (Manual) Basophils % (Manual) Seg Neutrophils # Seg Neutrophils # Man Lymphocytes # (Manual) Monocytes # (Manual) Eosinophils # (Manual) Nucleated RBC % Basophils # (Manual) PT INR APTT Heparin Anti-Xa Level ABG pH POC ABG pO2 68.1 L ABG pO2 ABG HCO3 ABG O2 Saturation ABG Base Excess POC ABG pCO2 ABG Hemoglobin ABG Oxyhemoglobin 91.2 L ABG Sodium ABG Chloride ABG Glucose Oxyhemoglobin Sodium Potassium Chloride Carbon Dioxide BUN Creatinine Glucose POC Glucose 111 H 110 H Lactic Acid Calcium Phosphorus Magnesium AST ALT Lactate Dehydrogenase Total Bilirubin Direct Bilirubin CK-MB (CK-2) C-Reactive Protein NT-Pro-B Natriuret Pep Total Protein Albumin Arterial Blood Glucose Urine WBC (Auto) Urine Creatinine Digoxin 11/28/19 11/28/19 11/28/19 12:08 13:47 13:47 WBC 11.3 H RBC Hgb Hct MCHC RDW 16.1 H MCV MCH Lymph % (Auto) [place] % (Auto) 9.9 H [place] # 1.1 H Eos # Lymph # (Auto) [place] # (Auto) Eos # (Auto) Seg Neutrophils % 71.4 H Seg Neuts % (Manual) Baso # (Auto) Lymphocytes % (Manual) Monocytes % (Manual) Eosinophils % (Manual) Basophils % (Manual) Seg Neutrophils # 8.1 H Seg Neutrophils # Man Lymphocytes # (Manual) Monocytes # (Manual) Eosinophils # (Manual) Nucleated RBC % Basophils # (Manual) PT INR APTT Heparin Anti-Xa Level ABG pH POC ABG pO2 ABG pO2 ABG HCO3 ABG O2 Saturation ABG Base Excess POC ABG pCO2 ABG Hemoglobin ABG Oxyhemoglobin ABG Sodium ABG Chloride ABG Glucose Oxyhemoglobin Sodium Potassium Chloride Carbon Dioxide BUN 23 H Creatinine Glucose 123 H POC Glucose 112 H Lactic Acid Calcium Phosphorus Magnesium AST ALT Lactate Dehydrogenase Total Bilirubin Direct Bilirubin CK-MB (CK-2) C-Reactive Protein NT-Pro-B Natriuret Pep Total Protein Albumin 3.7 L Arterial Blood Glucose Urine WBC (Auto) Urine Creatinine Digoxin 11/28/19 11/29/19 11/29/19 17:26 03:55 17:04 WBC RBC Hgb Hct MCHC RDW MCV MCH Lymph % (Auto) [place] % (Auto) [place] # Eos # Lymph # (Auto) [place] # (Auto) Eos # (Auto) Seg Neutrophils % Seg Neuts % (Manual) Baso # (Auto) Lymphocytes % (Manual) Monocytes % (Manual) Eosinophils % (Manual) Basophils % (Manual) Seg Neutrophils # Seg Neutrophils # Man Lymphocytes # (Manual) Monocytes # (Manual) Eosinophils # (Manual) Nucleated RBC % Basophils # (Manual) PT INR APTT Heparin Anti-Xa Level ABG pH POC ABG pO2 ABG pO2 65.7 L ABG HCO3 28.3 H ABG O2 Saturation 93.9 L ABG Base Excess 3.6 H POC ABG pCO2 ABG Hemoglobin 13.3 L ABG Oxyhemoglobin ABG Sodium ABG Chloride ABG Glucose Oxyhemoglobin 91.5 L Sodium Potassium Chloride Carbon Dioxide BUN Creatinine Glucose POC Glucose 123 H 119 H Lactic Acid Calcium Phosphorus Magnesium AST ALT Lactate Dehydrogenase Total Bilirubin Direct Bilirubin CK-MB (CK-2) C-Reactive Protein NT-Pro-B Natriuret Pep Total Protein Albumin Arterial Blood Glucose Urine WBC (Auto) Urine Creatinine Digoxin 11/30/19 11/30/19 11/30/19 04:17 04:17 04:56 WBC 13.4 H RBC Hgb Hct MCHC RDW 15.6 H MCV MCH Lymph % (Auto) [place] % (Auto) [place] # Eos # Lymph # (Auto) [place] # (Auto) Eos # (Auto) Seg Neutrophils % Seg Neuts % (Manual) Baso # (Auto) Lymphocytes % (Manual) Monocytes % (Manual) Eosinophils % (Manual) Basophils % (Manual) Seg Neutrophils # Seg Neutrophils # Man Lymphocytes # (Manual) Monocytes # (Manual) Eosinophils # (Manual) Nucleated RBC % Basophils # (Manual) PT INR APTT Heparin Anti-Xa Level ABG pH POC ABG pO2 ABG pO2 56.3 L ABG HCO3 29.3 H ABG O2 Saturation 91.5 L ABG Base Excess 4.7 H POC ABG pCO2 ABG Hemoglobin 12.1 L ABG Oxyhemoglobin ABG Sodium ABG Chloride ABG Glucose Oxyhemoglobin 89.2 L Sodium 147 H Potassium Chloride Carbon Dioxide BUN 30 H Creatinine Glucose 124 H POC Glucose Lactic Acid Calcium Phosphorus Magnesium AST ALT Lactate Dehydrogenase Total Bilirubin Direct Bilirubin CK-MB (CK-2) C-Reactive Protein NT-Pro-B Natriuret Pep Total Protein Albumin 3.8 L Arterial Blood Glucose Urine WBC (Auto) Urine Creatinine Digoxin 11/30/19 11/30/19 11/30/19 05:51 11:54 18:17 WBC RBC Hgb Hct MCHC RDW MCV MCH Lymph % (Auto) [place] % (Auto) [place] # Eos # Lymph # (Auto) [place] # (Auto) Eos # (Auto) Seg Neutrophils % Seg Neuts % (Manual) Baso # (Auto) Lymphocytes % (Manual) Monocytes % (Manual) Eosinophils % (Manual) Basophils % (Manual) Seg Neutrophils # Seg Neutrophils # Man Lymphocytes # (Manual) Monocytes # (Manual) Eosinophils # (Manual) Nucleated RBC % Basophils # (Manual) PT INR APTT Heparin Anti-Xa Level ABG pH POC ABG pO2 ABG pO2 ABG HCO3 ABG O2 Saturation ABG Base Excess POC ABG pCO2 ABG Hemoglobin ABG Oxyhemoglobin ABG Sodium ABG Chloride ABG Glucose Oxyhemoglobin Sodium Potassium Chloride Carbon Dioxide BUN Creatinine Glucose POC Glucose 127 H 115 H 143 H Lactic Acid Calcium Phosphorus Magnesium AST ALT Lactate Dehydrogenase Total Bilirubin Direct Bilirubin CK-MB (CK-2) C-Reactive Protein NT-Pro-B Natriuret Pep Total Protein Albumin Arterial Blood Glucose Urine WBC (Auto) Urine Creatinine Digoxin 12/01/19 12/01/19 12/01/19 01:18 05:22 12:16 WBC RBC Hgb Hct MCHC RDW MCV MCH Lymph % (Auto) [place] % (Auto) [place] # Eos # Lymph # (Auto) [place] # (Auto) Eos # (Auto) Seg Neutrophils % Seg Neuts % (Manual) Baso # (Auto) Lymphocytes % (Manual) Monocytes % (Manual) Eosinophils % (Manual) Basophils % (Manual) Seg Neutrophils # Seg Neutrophils # Man Lymphocytes # (Manual) Monocytes # (Manual) Eosinophils # (Manual) Nucleated RBC % Basophils # (Manual) PT INR APTT Heparin Anti-Xa Level ABG pH POC ABG pO2 ABG pO2 ABG HCO3 ABG O2 Saturation ABG Base Excess POC ABG pCO2 ABG Hemoglobin ABG Oxyhemoglobin ABG Sodium ABG Chloride ABG Glucose Oxyhemoglobin Sodium Potassium 3.5 L Chloride 107.8 H Carbon Dioxide BUN 37 H Creatinine Glucose 157 H POC Glucose 118 H 148 H Lactic Acid Calcium 8.2 L D Phosphorus Magnesium AST 48 H ALT 60 H Lactate Dehydrogenase 194 H Total Bilirubin Direct Bilirubin CK-MB (CK-2) C-Reactive Protein 8.50 H NT-Pro-B Natriuret Pep Total Protein 5.5 L Albumin 2.8 L Arterial Blood Glucose Urine WBC (Auto) Urine Creatinine Digoxin 12/01/19 12/02/19 12/02/19 18:04 00:05 05:16 WBC 11.4 H RBC Hgb Hct MCHC RDW 15.9 H MCV MCH Lymph % (Auto) [place] % (Auto) 9.9 H [place] # 1.1 H Eos # Lymph # (Auto) [place] # (Auto) Eos # (Auto) Seg Neutrophils % 70.3 H Seg Neuts % (Manual) Baso # (Auto) Lymphocytes % (Manual) Monocytes % (Manual) Eosinophils % (Manual) Basophils % (Manual) Seg Neutrophils # 8.0 H Seg Neutrophils # Man Lymphocytes # (Manual) Monocytes # (Manual) Eosinophils # (Manual) Nucleated RBC % Basophils # (Manual) PT INR APTT Heparin Anti-Xa Level ABG pH POC ABG pO2 ABG pO2 ABG HCO3 ABG O2 Saturation ABG Base Excess POC ABG pCO2 ABG Hemoglobin ABG Oxyhemoglobin ABG Sodium ABG Chloride ABG Glucose Oxyhemoglobin Sodium Potassium Chloride Carbon Dioxide BUN Creatinine Glucose POC Glucose 143 H 107 H Lactic Acid Calcium Phosphorus Magnesium AST ALT Lactate Dehydrogenase Total Bilirubin Direct Bilirubin CK-MB (CK-2) C-Reactive Protein NT-Pro-B Natriuret Pep Total Protein Albumin Arterial Blood Glucose Urine WBC (Auto) Urine Creatinine Digoxin 12/02/19 12/02/19 12/02/19 05:16 06:03 11:52 WBC RBC Hgb Hct MCHC RDW MCV MCH Lymph % (Auto) [place] % (Auto) [place] # Eos # Lymph # (Auto) [place] # (Auto) Eos # (Auto) Seg Neutrophils % Seg Neuts % (Manual) Baso # (Auto) Lymphocytes % (Manual) Monocytes % (Manual) Eosinophils % (Manual) Basophils % (Manual) Seg Neutrophils # Seg Neutrophils # Man Lymphocytes # (Manual) Monocytes # (Manual) Eosinophils # (Manual) Nucleated RBC % Basophils # (Manual) PT INR APTT Heparin Anti-Xa Level ABG pH POC ABG pO2 ABG pO2 ABG HCO3 ABG O2 Saturation ABG Base Excess POC ABG pCO2 ABG Hemoglobin ABG Oxyhemoglobin ABG Sodium ABG Chloride ABG Glucose Oxyhemoglobin Sodium 146 H Potassium Chloride Carbon Dioxide BUN 28 H Creatinine Glucose 123 H POC Glucose 110 H 152 H Lactic Acid Calcium Phosphorus Magnesium AST ALT Lactate Dehydrogenase Total Bilirubin Direct Bilirubin CK-MB (CK-2) C-Reactive Protein NT-Pro-B Natriuret Pep Total Protein Albumin Arterial Blood Glucose Urine WBC (Auto) Urine Creatinine Digoxin 12/02/19 12/02/19 12/02/19 12:58 17:58 23:36 WBC RBC Hgb Hct MCHC RDW MCV MCH Lymph % (Auto) [place] % (Auto) [place] # Eos # Lymph # (Auto) [place] # (Auto) Eos # (Auto) Seg Neutrophils % Seg Neuts % (Manual) Baso # (Auto) Lymphocytes % (Manual) Monocytes % (Manual) Eosinophils % (Manual) Basophils % (Manual) Seg Neutrophils # Seg Neutrophils # Man Lymphocytes # (Manual) Monocytes # (Manual) Eosinophils # (Manual) Nucleated RBC % Basophils # (Manual) PT INR APTT Heparin Anti-Xa Level ABG pH POC ABG pO2 78.1 L ABG pO2 ABG HCO3 ABG O2 Saturation ABG Base Excess POC ABG pCO2 ABG Hemoglobin ABG Oxyhemoglobin ABG Sodium ABG Chloride ABG Glucose Oxyhemoglobin Sodium Potassium Chloride Carbon Dioxide BUN Creatinine Glucose POC Glucose 120 H 123 H Lactic Acid Calcium Phosphorus Magnesium AST ALT Lactate Dehydrogenase Total Bilirubin Direct Bilirubin CK-MB (CK-2) C-Reactive Protein NT-Pro-B Natriuret Pep Total Protein Albumin Arterial Blood Glucose Urine WBC (Auto) Urine Creatinine Digoxin 12/03/19 12/03/19 12/03/19 06:03 06:14 11:46 WBC RBC Hgb Hct MCHC RDW MCV MCH Lymph % (Auto) [place] % (Auto) [place] # Eos # Lymph # (Auto) [place] # (Auto) Eos # (Auto) Seg Neutrophils % Seg Neuts % (Manual) Baso # (Auto) Lymphocytes % (Manual) Monocytes % (Manual) Eosinophils % (Manual) Basophils % (Manual) Seg Neutrophils # Seg Neutrophils # Man Lymphocytes # (Manual) Monocytes # (Manual) Eosinophils # (Manual) Nucleated RBC % Basophils # (Manual) PT INR APTT Heparin Anti-Xa Level ABG pH POC ABG pO2 ABG pO2 ABG HCO3 ABG O2 Saturation ABG Base Excess POC ABG pCO2 ABG Hemoglobin ABG Oxyhemoglobin ABG Sodium ABG Chloride ABG Glucose Oxyhemoglobin Sodium Potassium Chloride Carbon Dioxide BUN Creatinine Glucose POC Glucose 142 H 130 H Lactic Acid Calcium Phosphorus Magnesium AST ALT Lactate Dehydrogenase Total Bilirubin Direct Bilirubin CK-MB (CK-2) C-Reactive Protein NT-Pro-B Natriuret Pep Total Protein Albumin Arterial Blood Glucose Urine WBC (Auto) 8.0 H Urine Creatinine Digoxin 12/03/19 12/03/19 12/04/19 15:50 17:39 00:04 WBC RBC Hgb Hct MCHC RDW MCV MCH Lymph % (Auto) [place] % (Auto) [place] # Eos # Lymph # (Auto) [place] # (Auto) Eos # (Auto) Seg Neutrophils % Seg Neuts % (Manual) Baso # (Auto) Lymphocytes % (Manual) Monocytes % (Manual) Eosinophils % (Manual) Basophils % (Manual) Seg Neutrophils # Seg Neutrophils # Man Lymphocytes # (Manual) Monocytes # (Manual) Eosinophils # (Manual) Nucleated RBC % Basophils # (Manual) PT INR APTT Heparin Anti-Xa Level ABG pH POC ABG pO2 ABG pO2 ABG HCO3 ABG O2 Saturation ABG Base Excess POC ABG pCO2 ABG Hemoglobin ABG Oxyhemoglobin ABG Sodium ABG Chloride ABG Glucose Oxyhemoglobin Sodium Potassium Chloride Carbon Dioxide BUN Creatinine Glucose POC Glucose 146 H 133 H Lactic Acid Calcium Phosphorus 2.40 L Magnesium AST ALT Lactate Dehydrogenase Total Bilirubin Direct Bilirubin CK-MB (CK-2) C-Reactive Protein NT-Pro-B Natriuret Pep Total Protein Albumin Arterial Blood Glucose Urine WBC (Auto) Urine Creatinine Digoxin 12/04/19 12/04/19 12/04/19 03:58 03:58 05:22 WBC 12.5 H RBC Hgb 11.2 L Hct 35.2 L MCHC RDW 16.0 H MCV MCH Lymph % (Auto) [place] % (Auto) 9.6 H [place] # 1.2 H Eos # 0.5 H Lymph # (Auto) [place] # (Auto) Eos # (Auto) Seg Neutrophils % Seg Neuts % (Manual) Baso # (Auto) Lymphocytes % (Manual) Monocytes % (Manual) Eosinophils % (Manual) Basophils % (Manual) Seg Neutrophils # 8.6 H Seg Neutrophils # Man Lymphocytes # (Manual) Monocytes # (Manual) Eosinophils # (Manual) Nucleated RBC % Basophils # (Manual) PT INR APTT Heparin Anti-Xa Level ABG pH POC ABG pO2 ABG pO2 ABG HCO3 ABG O2 Saturation ABG Base Excess POC ABG pCO2 ABG Hemoglobin ABG Oxyhemoglobin ABG Sodium ABG Chloride ABG Glucose Oxyhemoglobin Sodium 146 H Potassium Chloride 108.6 H Carbon Dioxide BUN 30 H Creatinine 0.7 L Glucose 121 H POC Glucose 132 H Lactic Acid Calcium Phosphorus Magnesium AST ALT Lactate Dehydrogenase Total Bilirubin Direct Bilirubin CK-MB (CK-2) C-Reactive Protein NT-Pro-B Natriuret Pep Total Protein Albumin Arterial Blood Glucose Urine WBC (Auto) Urine Creatinine Digoxin 12/04/19 12/04/19 12/05/19 13:26 18:43 00:19 WBC RBC Hgb Hct MCHC RDW MCV MCH Lymph % (Auto) [place] % (Auto) [place] # Eos # Lymph # (Auto) [place] # (Auto) Eos # (Auto) Seg Neutrophils % Seg Neuts % (Manual) Baso # (Auto) Lymphocytes % (Manual) Monocytes % (Manual) Eosinophils % (Manual) Basophils % (Manual) Seg Neutrophils # Seg Neutrophils # Man Lymphocytes # (Manual) Monocytes # (Manual) Eosinophils # (Manual) Nucleated RBC % Basophils # (Manual) PT INR APTT Heparin Anti-Xa Level ABG pH POC ABG pO2 ABG pO2 ABG HCO3 ABG O2 Saturation ABG Base Excess POC ABG pCO2 ABG Hemoglobin ABG Oxyhemoglobin ABG Sodium ABG Chloride ABG Glucose Oxyhemoglobin Sodium Potassium Chloride Carbon Dioxide BUN Creatinine Glucose POC Glucose 185 H 156 H 150 H Lactic Acid Calcium Phosphorus Magnesium AST ALT Lactate Dehydrogenase Total Bilirubin Direct Bilirubin CK-MB (CK-2) C-Reactive Protein NT-Pro-B Natriuret Pep Total Protein Albumin Arterial Blood Glucose Urine WBC (Auto) Urine Creatinine Digoxin 12/05/19 12/05/19 12/05/19 03:37 03:37 05:14 WBC 16.3 H RBC Hgb 11.4 L Hct MCHC RDW 15.6 H MCV MCH Lymph % (Auto) 9.9 L [place] % (Auto) 9.7 H [place] # 1.6 H Eos # Lymph # (Auto) [place] # (Auto) Eos # (Auto) Seg Neutrophils % 78.0 H Seg Neuts % (Manual) Baso # (Auto) Lymphocytes % (Manual) Monocytes % (Manual) Eosinophils % (Manual) Basophils % (Manual) Seg Neutrophils # 12.7 H Seg Neutrophils # Man Lymphocytes # (Manual) Monocytes # (Manual) Eosinophils # (Manual) Nucleated RBC % Basophils # (Manual) PT INR APTT Heparin Anti-Xa Level ABG pH POC ABG pO2 ABG pO2 ABG HCO3 ABG O2 Saturation ABG Base Excess POC ABG pCO2 ABG Hemoglobin ABG Oxyhemoglobin ABG Sodium ABG Chloride ABG Glucose Oxyhemoglobin Sodium 146 H Potassium Chloride 107.2 H Carbon Dioxide BUN 27 H Creatinine 0.7 L Glucose 171 H POC Glucose 168 H Lactic Acid Calcium Phosphorus Magnesium AST ALT Lactate Dehydrogenase Total Bilirubin Direct Bilirubin CK-MB (CK-2) C-Reactive Protein NT-Pro-B Natriuret Pep Total Protein Albumin Arterial Blood Glucose Urine WBC (Auto) Urine Creatinine Digoxin 12/05/19 12/05/19 12/05/19 12:31 18:10 23:58 WBC RBC Hgb Hct MCHC RDW MCV MCH Lymph % (Auto) [place] % (Auto) [place] # Eos # Lymph # (Auto) [place] # (Auto) Eos # (Auto) Seg Neutrophils % Seg Neuts % (Manual) Baso # (Auto) Lymphocytes % (Manual) Monocytes % (Manual) Eosinophils % (Manual) Basophils % (Manual) Seg Neutrophils # Seg Neutrophils # Man Lymphocytes # (Manual) Monocytes # (Manual) Eosinophils # (Manual) Nucleated RBC % Basophils # (Manual) PT INR APTT Heparin Anti-Xa Level ABG pH POC ABG pO2 ABG pO2 ABG HCO3 ABG O2 Saturation ABG Base Excess POC ABG pCO2 ABG Hemoglobin ABG Oxyhemoglobin ABG Sodium ABG Chloride ABG Glucose Oxyhemoglobin Sodium Potassium Chloride Carbon Dioxide BUN Creatinine Glucose POC Glucose 159 H 198 H 115 H Lactic Acid Calcium Phosphorus Magnesium AST ALT Lactate Dehydrogenase Total Bilirubin Direct Bilirubin CK-MB (CK-2) C-Reactive Protein NT-Pro-B Natriuret Pep Total Protein Albumin Arterial Blood Glucose Urine WBC (Auto) Urine Creatinine Digoxin 12/06/19 12/06/19 12/06/19 05:24 05:24 05:25 WBC 14.9 H RBC Hgb 10.8 L Hct 34.0 L MCHC RDW 15.6 H MCV MCH Lymph % (Auto) 10.7 L [place] % (Auto) 8.3 H [place] # 1.2 H Eos # Lymph # (Auto) [place] # (Auto) Eos # (Auto) Seg Neutrophils % 78.7 H Seg Neuts % (Manual) Baso # (Auto) Lymphocytes % (Manual) Monocytes % (Manual) Eosinophils % (Manual) Basophils % (Manual) Seg Neutrophils # 11.7 H Seg Neutrophils # Man Lymphocytes # (Manual) Monocytes # (Manual) Eosinophils # (Manual) Nucleated RBC % Basophils # (Manual) PT INR APTT Heparin Anti-Xa Level ABG pH POC ABG pO2 ABG pO2 ABG HCO3 ABG O2 Saturation ABG Base Excess POC ABG pCO2 ABG Hemoglobin ABG Oxyhemoglobin ABG Sodium ABG Chloride ABG Glucose Oxyhemoglobin Sodium 148 H Potassium 5.1 H Chloride 107.6 H Carbon Dioxide BUN 27 H Creatinine 0.7 L Glucose 155 H POC Glucose 157 H Lactic Acid Calcium Phosphorus Magnesium AST ALT Lactate Dehydrogenase Total Bilirubin Direct Bilirubin CK-MB (CK-2) C-Reactive Protein NT-Pro-B Natriuret Pep Total Protein Albumin Arterial Blood Glucose Urine WBC (Auto) Urine Creatinine Digoxin 12/07/19 12/07/19 12/07/19 00:13 05:34 11:33 WBC RBC Hgb Hct MCHC RDW MCV MCH Lymph % (Auto) [place] % (Auto) [place] # Eos # Lymph # (Auto) [place] # (Auto) Eos # (Auto) Seg Neutrophils % Seg Neuts % (Manual) Baso # (Auto) Lymphocytes % (Manual) Monocytes % (Manual) Eosinophils % (Manual) Basophils % (Manual) Seg Neutrophils # Seg Neutrophils # Man Lymphocytes # (Manual) Monocytes # (Manual) Eosinophils # (Manual) Nucleated RBC % Basophils # (Manual) PT INR APTT Heparin Anti-Xa Level ABG pH POC ABG pO2 ABG pO2 ABG HCO3 ABG O2 Saturation ABG Base Excess POC ABG pCO2 ABG Hemoglobin ABG Oxyhemoglobin ABG Sodium ABG Chloride ABG Glucose Oxyhemoglobin Sodium Potassium Chloride Carbon Dioxide BUN Creatinine Glucose POC Glucose 142 H 111 H 169 H Lactic Acid Calcium Phosphorus Magnesium AST ALT Lactate Dehydrogenase Total Bilirubin Direct Bilirubin CK-MB (CK-2) C-Reactive Protein NT-Pro-B Natriuret Pep Total Protein Albumin Arterial Blood Glucose Urine WBC (Auto) Urine Creatinine Digoxin 12/07/19 12/07/19 12/07/19 12:41 13:25 18:19 WBC 12.4 H RBC 3.53 L Hgb 10.2 L Hct 32.1 L MCHC RDW 15.3 H MCV MCH Lymph % (Auto) 10.6 L [place] % (Auto) 7.8 H [place] # 1.0 H Eos # Lymph # (Auto) [place] # (Auto) Eos # (Auto) Seg Neutrophils % 77.6 H Seg Neuts % (Manual) Baso # (Auto) Lymphocytes % (Manual) Monocytes % (Manual) Eosinophils % (Manual) Basophils % (Manual) Seg Neutrophils # 9.6 H Seg Neutrophils # Man Lymphocytes # (Manual) Monocytes # (Manual) Eosinophils # (Manual) Nucleated RBC % Basophils # (Manual) PT INR APTT Heparin Anti-Xa Level ABG pH POC ABG pO2 ABG pO2 ABG HCO3 ABG O2 Saturation ABG Base Excess POC ABG pCO2 ABG Hemoglobin ABG Oxyhemoglobin ABG Sodium ABG Chloride ABG Glucose Oxyhemoglobin Sodium 149 H Potassium Chloride 108.4 H Carbon Dioxide BUN 26 H Creatinine 0.6 L Glucose 149 H POC Glucose 164 H Lactic Acid Calcium Phosphorus Magnesium 2.60 H AST 121 H ALT 145 H Lactate Dehydrogenase Total Bilirubin Direct Bilirubin CK-MB (CK-2) C-Reactive Protein NT-Pro-B Natriuret Pep Total Protein Albumin 2.6 L Arterial Blood Glucose Urine WBC (Auto) Urine Creatinine Digoxin 12/07/19 12/08/19 12/08/19 22:25 00:02 03:55 WBC 13.3 H RBC 3.40 L Hgb 9.7 L Hct 30.8 L MCHC 31 L RDW 15.5 H MCV MCH Lymph % (Auto) [place] % (Auto) 8.1 H [place] # 1.1 H Eos # Lymph # (Auto) [place] # (Auto) Eos # (Auto) Seg Neutrophils % 73.0 H Seg Neuts % (Manual) Baso # (Auto) Lymphocytes % (Manual) Monocytes % (Manual) Eosinophils % (Manual) Basophils % (Manual) Seg Neutrophils # 9.7 H Seg Neutrophils # Man Lymphocytes # (Manual) Monocytes # (Manual) Eosinophils # (Manual) Nucleated RBC % Basophils # (Manual) PT INR APTT Heparin Anti-Xa Level 0.12 L ABG pH POC ABG pO2 ABG pO2 ABG HCO3 ABG O2 Saturation ABG Base Excess POC ABG pCO2 ABG Hemoglobin ABG Oxyhemoglobin ABG Sodium ABG Chloride ABG Glucose Oxyhemoglobin Sodium Potassium Chloride Carbon Dioxide BUN Creatinine Glucose POC Glucose 151 H Lactic Acid Calcium Phosphorus Magnesium AST ALT Lactate Dehydrogenase Total Bilirubin Direct Bilirubin CK-MB (CK-2) C-Reactive Protein NT-Pro-B Natriuret Pep Total Protein Albumin Arterial Blood Glucose Urine WBC (Auto) Urine Creatinine Digoxin 12/08/19 12/08/19 12/08/19 03:55 05:21 06:01 WBC RBC Hgb Hct MCHC RDW MCV MCH Lymph % (Auto) [place] % (Auto) [place] # Eos # Lymph # (Auto) [place] # (Auto) Eos # (Auto) Seg Neutrophils % Seg Neuts % (Manual) Baso # (Auto) Lymphocytes % (Manual) Monocytes % (Manual) Eosinophils % (Manual) Basophils % (Manual) Seg Neutrophils # Seg Neutrophils # Man Lymphocytes # (Manual) Monocytes # (Manual) Eosinophils # (Manual) Nucleated RBC % Basophils # (Manual) PT INR APTT Heparin Anti-Xa Level 0.20 L ABG pH POC ABG pO2 ABG pO2 ABG HCO3 ABG O2 Saturation ABG Base Excess POC ABG pCO2 ABG Hemoglobin ABG Oxyhemoglobin ABG Sodium ABG Chloride ABG Glucose Oxyhemoglobin Sodium 149 H Potassium Chloride 108.0 H Carbon Dioxide BUN 28 H Creatinine 0.6 L Glucose 144 H POC Glucose 143 H Lactic Acid Calcium Phosphorus Magnesium AST 98 H ALT 145 H Lactate Dehydrogenase Total Bilirubin Direct Bilirubin CK-MB (CK-2) C-Reactive Protein NT-Pro-B Natriuret Pep Total Protein 6.0 L Albumin 2.4 L Arterial Blood Glucose Urine WBC (Auto) Urine Creatinine Digoxin 12/08/19 12/08/19 12/08/19 12:08 18:11 23:53 WBC RBC Hgb Hct MCHC RDW MCV MCH Lymph % (Auto) [place] % (Auto) [place] # Eos # Lymph # (Auto) [place] # (Auto) Eos # (Auto) Seg Neutrophils % Seg Neuts % (Manual) Baso # (Auto) Lymphocytes % (Manual) Monocytes % (Manual) Eosinophils % (Manual) Basophils % (Manual) Seg Neutrophils # Seg Neutrophils # Man Lymphocytes # (Manual) Monocytes # (Manual) Eosinophils # (Manual) Nucleated RBC % Basophils # (Manual) PT INR APTT Heparin Anti-Xa Level ABG pH POC ABG pO2 ABG pO2 ABG HCO3 ABG O2 Saturation ABG Base Excess POC ABG pCO2 ABG Hemoglobin ABG Oxyhemoglobin ABG Sodium ABG Chloride ABG Glucose Oxyhemoglobin Sodium Potassium Chloride Carbon Dioxide BUN Creatinine Glucose POC Glucose 172 H 122 H 162 H Lactic Acid Calcium Phosphorus Magnesium AST ALT Lactate Dehydrogenase Total Bilirubin Direct Bilirubin CK-MB (CK-2) C-Reactive Protein NT-Pro-B Natriuret Pep Total Protein Albumin Arterial Blood Glucose Urine WBC (Auto) Urine Creatinine Digoxin 12/09/19 12/09/19 12/09/19 04:03 04:03 05:53 WBC RBC Hgb 9.1 L Hct 28.9 L MCHC RDW MCV MCH Lymph % (Auto) [place] % (Auto) [place] # Eos # Lymph # (Auto) [place] # (Auto) Eos # (Auto) Seg Neutrophils % Seg Neuts % (Manual) Baso # (Auto) Lymphocytes % (Manual) Monocytes % (Manual) Eosinophils % (Manual) Basophils % (Manual) Seg Neutrophils # Seg Neutrophils # Man Lymphocytes # (Manual) Monocytes # (Manual) Eosinophils # (Manual) Nucleated RBC % Basophils # (Manual) PT INR APTT Heparin Anti-Xa Level 0.15 L ABG pH POC ABG pO2 ABG pO2 ABG HCO3 ABG O2 Saturation ABG Base Excess POC ABG pCO2 ABG Hemoglobin ABG Oxyhemoglobin ABG Sodium ABG Chloride ABG Glucose Oxyhemoglobin Sodium Potassium Chloride Carbon Dioxide BUN Creatinine Glucose POC Glucose 124 H Lactic Acid Calcium Phosphorus Magnesium AST ALT Lactate Dehydrogenase Total Bilirubin Direct Bilirubin CK-MB (CK-2) C-Reactive Protein NT-Pro-B Natriuret Pep Total Protein Albumin Arterial Blood Glucose Urine WBC (Auto) Urine Creatinine Digoxin 12/09/19 12/09/19 12/10/19 09:43 12:41 00:13 WBC RBC Hgb Hct MCHC RDW MCV MCH Lymph % (Auto) [place] % (Auto) [place] # Eos # Lymph # (Auto) [place] # (Auto) Eos # (Auto) Seg Neutrophils % Seg Neuts % (Manual) Baso # (Auto) Lymphocytes % (Manual) Monocytes % (Manual) Eosinophils % (Manual) Basophils % (Manual) Seg Neutrophils # Seg Neutrophils # Man Lymphocytes # (Manual) Monocytes # (Manual) Eosinophils # (Manual) Nucleated RBC % Basophils # (Manual) PT INR APTT Heparin Anti-Xa Level ABG pH POC ABG pO2 ABG pO2 ABG HCO3 ABG O2 Saturation ABG Base Excess POC ABG pCO2 ABG Hemoglobin ABG Oxyhemoglobin ABG Sodium ABG Chloride ABG Glucose Oxyhemoglobin Sodium Potassium Chloride Carbon Dioxide BUN 25 H Creatinine 0.6 L Glucose 131 H POC Glucose 109 H 120 H Lactic Acid Calcium Phosphorus Magnesium AST ALT Lactate Dehydrogenase Total Bilirubin Direct Bilirubin CK-MB (CK-2) C-Reactive Protein NT-Pro-B Natriuret Pep Total Protein Albumin Arterial Blood Glucose Urine WBC (Auto) Urine Creatinine Digoxin 12/10/19 12/10/19 12/10/19 04:14 04:14 12:00 WBC 13.3 H RBC 3.34 L Hgb 9.6 L Hct 30.4 L MCHC RDW 15.4 H MCV MCH Lymph % (Auto) [place] % (Auto) [place] # Eos # Lymph # (Auto) [place] # (Auto) Eos # (Auto) Seg Neutrophils % Seg Neuts % (Manual) 75.0 H Baso # (Auto) Lymphocytes % (Manual) 13.0 L Monocytes % (Manual) 8.0 H Eosinophils % (Manual) Basophils % (Manual) 2.0 H Seg Neutrophils # Seg Neutrophils # Man 10.0 H Lymphocytes # (Manual) Monocytes # (Manual) 1.1 H Eosinophils # (Manual) Nucleated RBC % Basophils # (Manual) 0.3 H PT INR APTT Heparin Anti-Xa Level ABG pH POC ABG pO2 ABG pO2 ABG HCO3 ABG O2 Saturation ABG Base Excess POC ABG pCO2 ABG Hemoglobin ABG Oxyhemoglobin ABG Sodium ABG Chloride ABG Glucose Oxyhemoglobin Sodium 147 H Potassium Chloride 108.3 H Carbon Dioxide BUN 21 H Creatinine 0.6 L Glucose 104 H POC Glucose 133 H Lactic Acid Calcium Phosphorus Magnesium AST ALT Lactate Dehydrogenase Total Bilirubin Direct Bilirubin CK-MB (CK-2) C-Reactive Protein NT-Pro-B Natriuret Pep Total Protein Albumin Arterial Blood Glucose Urine WBC (Auto) Urine Creatinine Digoxin 12/10/19 12/10/19 12/11/19 18:44 21:20 00:08 WBC 14.9 H RBC 3.36 L Hgb 9.6 L Hct 30.5 L MCHC RDW 15.4 H MCV MCH Lymph % (Auto) [place] % (Auto) [place] # Eos # Lymph # (Auto) [place] # (Auto) Eos # (Auto) Seg Neutrophils % Seg Neuts % (Manual) Baso # (Auto) Lymphocytes % (Manual) Monocytes % (Manual) Eosinophils % (Manual) Basophils % (Manual) Seg Neutrophils # Seg Neutrophils # Man Lymphocytes # (Manual) Monocytes # (Manual) Eosinophils # (Manual) Nucleated RBC % Basophils # (Manual) PT INR APTT Heparin Anti-Xa Level ABG pH POC ABG pO2 ABG pO2 ABG HCO3 ABG O2 Saturation ABG Base Excess POC ABG pCO2 ABG Hemoglobin ABG Oxyhemoglobin ABG Sodium ABG Chloride ABG Glucose Oxyhemoglobin Sodium Potassium Chloride Carbon Dioxide BUN Creatinine Glucose POC Glucose 119 H 134 H Lactic Acid Calcium Phosphorus Magnesium AST ALT Lactate Dehydrogenase Total Bilirubin Direct Bilirubin CK-MB (CK-2) C-Reactive Protein NT-Pro-B Natriuret Pep Total Protein Albumin Arterial Blood Glucose Urine WBC (Auto) Urine Creatinine Digoxin 12/11/19 12/11/19 12/11/19 03:54 07:28 08:36 WBC 11.9 H RBC 3.25 L Hgb 9.6 L Hct 29.2 L MCHC RDW 15.7 H MCV MCH Lymph % (Auto) [place] % (Auto) [place] # Eos # Lymph # (Auto) [place] # (Auto) Eos # (Auto) Seg Neutrophils % Seg Neuts % (Manual) Baso # (Auto) Lymphocytes % (Manual) Monocytes % (Manual) Eosinophils % (Manual) Basophils % (Manual) Seg Neutrophils # Seg Neutrophils # Man Lymphocytes # (Manual) Monocytes # (Manual) Eosinophils # (Manual) Nucleated RBC % Basophils # (Manual) PT INR APTT Heparin Anti-Xa Level 0.10 L 0.16 L ABG pH POC ABG pO2 ABG pO2 ABG HCO3 ABG O2 Saturation ABG Base Excess POC ABG pCO2 ABG Hemoglobin ABG Oxyhemoglobin ABG Sodium ABG Chloride ABG Glucose Oxyhemoglobin Sodium Potassium Chloride Carbon Dioxide BUN Creatinine Glucose POC Glucose Lactic Acid Calcium Phosphorus Magnesium AST ALT Lactate Dehydrogenase Total Bilirubin Direct Bilirubin CK-MB (CK-2) C-Reactive Protein NT-Pro-B Natriuret Pep Total Protein Albumin Arterial Blood Glucose Urine WBC (Auto) Urine Creatinine Digoxin 12/11/19 12/11/19 12/11/19 08:36 11:45 17:15 WBC RBC Hgb Hct MCHC RDW MCV MCH Lymph % (Auto) [place] % (Auto) [place] # Eos # Lymph # (Auto) [place] # (Auto) Eos # (Auto) Seg Neutrophils % Seg Neuts % (Manual) Baso # (Auto) Lymphocytes % (Manual) Monocytes % (Manual) Eosinophils % (Manual) Basophils % (Manual) Seg Neutrophils # Seg Neutrophils # Man Lymphocytes # (Manual) Monocytes # (Manual) Eosinophils # (Manual) Nucleated RBC % Basophils # (Manual) PT INR APTT Heparin Anti-Xa Level ABG pH POC ABG pO2 ABG pO2 ABG HCO3 ABG O2 Saturation ABG Base Excess POC ABG pCO2 ABG Hemoglobin ABG Oxyhemoglobin ABG Sodium ABG Chloride ABG Glucose Oxyhemoglobin Sodium Potassium Chloride Carbon Dioxide BUN Creatinine 0.5 L Glucose 128 H POC Glucose 136 H 109 H Lactic Acid Calcium Phosphorus Magnesium AST ALT Lactate Dehydrogenase Total Bilirubin Direct Bilirubin CK-MB (CK-2) C-Reactive Protein NT-Pro-B Natriuret Pep Total Protein Albumin Arterial Blood Glucose Urine WBC (Auto) Urine Creatinine Digoxin 12/12/19 12/12/19 12/12/19 00:03 05:53 05:53 WBC RBC Hgb 8.8 L Hct 27.6 L MCHC RDW MCV MCH Lymph % (Auto) [place] % (Auto) [place] # Eos # Lymph # (Auto) [place] # (Auto) Eos # (Auto) Seg Neutrophils % Seg Neuts % (Manual) Baso # (Auto) Lymphocytes % (Manual) Monocytes % (Manual) Eosinophils % (Manual) Basophils % (Manual) Seg Neutrophils # Seg Neutrophils # Man Lymphocytes # (Manual) Monocytes # (Manual) Eosinophils # (Manual) Nucleated RBC % Basophils # (Manual) PT INR APTT Heparin Anti-Xa Level 0.22 L ABG pH POC ABG pO2 ABG pO2 ABG HCO3 ABG O2 Saturation ABG Base Excess POC ABG pCO2 ABG Hemoglobin ABG Oxyhemoglobin ABG Sodium ABG Chloride ABG Glucose Oxyhemoglobin Sodium Potassium Chloride Carbon Dioxide BUN Creatinine Glucose POC Glucose 116 H Lactic Acid Calcium Phosphorus Magnesium AST ALT Lactate Dehydrogenase Total Bilirubin Direct Bilirubin CK-MB (CK-2) C-Reactive Protein NT-Pro-B Natriuret Pep Total Protein Albumin Arterial Blood Glucose Urine WBC (Auto) Urine Creatinine Digoxin 12/12/19 12/12/19 12/12/19 09:38 12:18 17:44 WBC RBC Hgb Hct MCHC RDW MCV MCH Lymph % (Auto) [place] % (Auto) [place] # Eos # Lymph # (Auto) [place] # (Auto) Eos # (Auto) Seg Neutrophils % Seg Neuts % (Manual) Baso # (Auto) Lymphocytes % (Manual) Monocytes % (Manual) Eosinophils % (Manual) Basophils % (Manual) Seg Neutrophils # Seg Neutrophils # Man Lymphocytes # (Manual) Monocytes # (Manual) Eosinophils # (Manual) Nucleated RBC % Basophils # (Manual) PT INR APTT Heparin Anti-Xa Level ABG pH POC ABG pO2 ABG pO2 ABG HCO3 ABG O2 Saturation ABG Base Excess POC ABG pCO2 ABG Hemoglobin ABG Oxyhemoglobin ABG Sodium ABG Chloride ABG Glucose Oxyhemoglobin Sodium Potassium Chloride Carbon Dioxide BUN Creatinine Glucose POC Glucose 115 H 146 H 146 H Lactic Acid Calcium Phosphorus Magnesium AST ALT Lactate Dehydrogenase Total Bilirubin Direct Bilirubin CK-MB (CK-2) C-Reactive Protein NT-Pro-B Natriuret Pep Total Protein Albumin Arterial Blood Glucose Urine WBC (Auto) Urine Creatinine Digoxin 12/12/19 12/13/19 12/13/19 23:33 05:32 05:32 WBC 13.1 H RBC 3.27 L Hgb 9.5 L Hct 29.3 L MCHC RDW 15.6 H MCV MCH Lymph % (Auto) [place] % (Auto) [place] # Eos # Lymph # (Auto) [place] # (Auto) Eos # (Auto) Seg Neutrophils % Seg Neuts % (Manual) 74.0 H Baso # (Auto) Lymphocytes % (Manual) 8.0 L Monocytes % (Manual) 9.0 H Eosinophils % (Manual) 5.0 H Basophils % (Manual) Seg Neutrophils # Seg Neutrophils # Man 9.7 H Lymphocytes # (Manual) 1.0 L Monocytes # (Manual) 1.2 H Eosinophils # (Manual) 0.7 H Nucleated RBC % Basophils # (Manual) PT INR APTT Heparin Anti-Xa Level 0.20 L ABG pH POC ABG pO2 ABG pO2 ABG HCO3 ABG O2 Saturation ABG Base Excess POC ABG pCO2 ABG Hemoglobin ABG Oxyhemoglobin ABG Sodium ABG Chloride ABG Glucose Oxyhemoglobin Sodium Potassium Chloride Carbon Dioxide BUN Creatinine Glucose POC Glucose 126 H Lactic Acid Calcium Phosphorus Magnesium AST ALT Lactate Dehydrogenase Total Bilirubin Direct Bilirubin CK-MB (CK-2) C-Reactive Protein NT-Pro-B Natriuret Pep Total Protein Albumin Arterial Blood Glucose Urine WBC (Auto) Urine Creatinine Digoxin 12/13/19 12/13/19 12/13/19 05:32 05:46 11:57 WBC RBC Hgb Hct MCHC RDW MCV MCH Lymph % (Auto) [place] % (Auto) [place] # Eos # Lymph # (Auto) [place] # (Auto) Eos # (Auto) Seg Neutrophils % Seg Neuts % (Manual) Baso # (Auto) Lymphocytes % (Manual) Monocytes % (Manual) Eosinophils % (Manual) Basophils % (Manual) Seg Neutrophils # Seg Neutrophils # Man Lymphocytes # (Manual) Monocytes # (Manual) Eosinophils # (Manual) Nucleated RBC % Basophils # (Manual) PT INR APTT Heparin Anti-Xa Level ABG pH POC ABG pO2 ABG pO2 ABG HCO3 ABG O2 Saturation ABG Base Excess POC ABG pCO2 ABG Hemoglobin ABG Oxyhemoglobin ABG Sodium ABG Chloride ABG Glucose Oxyhemoglobin Sodium Potassium Chloride Carbon Dioxide 31 H BUN Creatinine 0.6 L Glucose 114 H POC Glucose 118 H 133 H Lactic Acid Calcium Phosphorus Magnesium AST ALT Lactate Dehydrogenase Total Bilirubin Direct Bilirubin CK-MB (CK-2) C-Reactive Protein NT-Pro-B Natriuret Pep Total Protein Albumin Arterial Blood Glucose Urine WBC (Auto) Urine Creatinine Digoxin 12/13/19 12/13/19 12/14/19 17:44 23:46 05:32 WBC RBC Hgb Hct MCHC RDW MCV MCH Lymph % (Auto) [place] % (Auto) [place] # Eos # Lymph # (Auto) [place] # (Auto) Eos # (Auto) Seg Neutrophils % Seg Neuts % (Manual) Baso # (Auto) Lymphocytes % (Manual) Monocytes % (Manual) Eosinophils % (Manual) Basophils % (Manual) Seg Neutrophils # Seg Neutrophils # Man Lymphocytes # (Manual) Monocytes # (Manual) Eosinophils # (Manual) Nucleated RBC % Basophils # (Manual) PT INR APTT Heparin Anti-Xa Level ABG pH POC ABG pO2 ABG pO2 ABG HCO3 ABG O2 Saturation ABG Base Excess POC ABG pCO2 ABG Hemoglobin ABG Oxyhemoglobin ABG Sodium ABG Chloride ABG Glucose Oxyhemoglobin Sodium Potassium Chloride Carbon Dioxide BUN Creatinine Glucose POC Glucose 161 H 126 H 139 H Lactic Acid Calcium Phosphorus Magnesium AST ALT Lactate Dehydrogenase Total Bilirubin Direct Bilirubin CK-MB (CK-2) C-Reactive Protein NT-Pro-B Natriuret Pep Total Protein Albumin Arterial Blood Glucose Urine WBC (Auto) Urine Creatinine Digoxin 12/14/19 12/14/19 12/14/19 06:03 06:03 09:37 WBC RBC Hgb 9.6 L Hct 30.4 L MCHC RDW MCV MCH Lymph % (Auto) [place] % (Auto) [place] # Eos # Lymph # (Auto) [place] # (Auto) Eos # (Auto) Seg Neutrophils % Seg Neuts % (Manual) Baso # (Auto) Lymphocytes % (Manual) Monocytes % (Manual) Eosinophils % (Manual) Basophils % (Manual) Seg Neutrophils # Seg Neutrophils # Man Lymphocytes # (Manual) Monocytes # (Manual) Eosinophils # (Manual) Nucleated RBC % Basophils # (Manual) PT INR APTT Heparin Anti-Xa Level 0.24 L ABG pH POC ABG pO2 ABG pO2 ABG HCO3 ABG O2 Saturation ABG Base Excess POC ABG pCO2 ABG Hemoglobin ABG Oxyhemoglobin ABG Sodium ABG Chloride ABG Glucose Oxyhemoglobin Sodium Potassium Chloride Carbon Dioxide BUN Creatinine 0.6 L Glucose 162 H POC Glucose Lactic Acid Calcium Phosphorus Magnesium AST 71 H ALT 118 H Lactate Dehydrogenase Total Bilirubin Direct Bilirubin CK-MB (CK-2) C-Reactive Protein NT-Pro-B Natriuret Pep Total Protein 6.2 L Albumin 2.3 L Arterial Blood Glucose Urine WBC (Auto) Urine Creatinine Digoxin 12/14/19 12/14/19 12/15/19 12:06 18:18 00:19 WBC RBC Hgb Hct MCHC RDW MCV MCH Lymph % (Auto) [place] % (Auto) [place] # Eos # Lymph # (Auto) [place] # (Auto) Eos # (Auto) Seg Neutrophils % Seg Neuts % (Manual) Baso # (Auto) Lymphocytes % (Manual) Monocytes % (Manual) Eosinophils % (Manual) Basophils % (Manual) Seg Neutrophils # Seg Neutrophils # Man Lymphocytes # (Manual) Monocytes # (Manual) Eosinophils # (Manual) Nucleated RBC % Basophils # (Manual) PT INR APTT Heparin Anti-Xa Level ABG pH POC ABG pO2 ABG pO2 ABG HCO3 ABG O2 Saturation ABG Base Excess POC ABG pCO2 ABG Hemoglobin ABG Oxyhemoglobin ABG Sodium ABG Chloride ABG Glucose Oxyhemoglobin Sodium Potassium Chloride Carbon Dioxide BUN Creatinine Glucose POC Glucose 147 H 166 H 123 H Lactic Acid Calcium Phosphorus Magnesium AST ALT Lactate Dehydrogenase Total Bilirubin Direct Bilirubin CK-MB (CK-2) C-Reactive Protein NT-Pro-B Natriuret Pep Total Protein Albumin Arterial Blood Glucose Urine WBC (Auto) Urine Creatinine Digoxin 12/15/19 12/15/19 12/15/19 05:28 05:29 05:29 WBC 14.9 H RBC 3.19 L Hgb 9.1 L Hct 28.7 L MCHC RDW 16.0 H MCV MCH Lymph % (Auto) [place] % (Auto) [place] # Eos # Lymph # (Auto) [place] # (Auto) Eos # (Auto) Seg Neutrophils % Seg Neuts % (Manual) Baso # (Auto) Lymphocytes % (Manual) Monocytes % (Manual) Eosinophils % (Manual) Basophils % (Manual) Seg Neutrophils # Seg Neutrophils # Man Lymphocytes # (Manual) Monocytes # (Manual) Eosinophils # (Manual) Nucleated RBC % Basophils # (Manual) PT INR APTT Heparin Anti-Xa Level 0.19 L ABG pH POC ABG pO2 ABG pO2 ABG HCO3 ABG O2 Saturation ABG Base Excess POC ABG pCO2 ABG Hemoglobin ABG Oxyhemoglobin ABG Sodium ABG Chloride ABG Glucose Oxyhemoglobin Sodium Potassium Chloride Carbon Dioxide BUN Creatinine 0.6 L Glucose 110 H POC Glucose Lactic Acid Calcium Phosphorus Magnesium AST ALT Lactate Dehydrogenase Total Bilirubin Direct Bilirubin CK-MB (CK-2) C-Reactive Protein NT-Pro-B Natriuret Pep Total Protein Albumin Arterial Blood Glucose Urine WBC (Auto) Urine Creatinine Digoxin 12/15/19 12/15/19 12/15/19 05:53 11:50 17:26 WBC RBC Hgb Hct MCHC RDW MCV MCH Lymph % (Auto) [place] % (Auto) [place] # Eos # Lymph # (Auto) [place] # (Auto) Eos # (Auto) Seg Neutrophils % Seg Neuts % (Manual) Baso # (Auto) Lymphocytes % (Manual) Monocytes % (Manual) Eosinophils % (Manual) Basophils % (Manual) Seg Neutrophils # Seg Neutrophils # Man Lymphocytes # (Manual) Monocytes # (Manual) Eosinophils # (Manual) Nucleated RBC % Basophils # (Manual) PT INR APTT Heparin Anti-Xa Level ABG pH POC ABG pO2 ABG pO2 ABG HCO3 ABG O2 Saturation ABG Base Excess POC ABG pCO2 ABG Hemoglobin ABG Oxyhemoglobin ABG Sodium ABG Chloride ABG Glucose Oxyhemoglobin Sodium Potassium Chloride Carbon Dioxide BUN Creatinine Glucose POC Glucose 119 H 132 H 128 H Lactic Acid Calcium Phosphorus Magnesium AST ALT Lactate Dehydrogenase Total Bilirubin Direct Bilirubin CK-MB (CK-2) C-Reactive Protein NT-Pro-B Natriuret Pep Total Protein Albumin Arterial Blood Glucose Urine WBC (Auto) Urine Creatinine Digoxin 12/15/19 12/16/19 12/16/19 23:11 05:30 05:46 WBC RBC Hgb 8.8 L Hct 27.9 L MCHC RDW MCV MCH Lymph % (Auto) [place] % (Auto) [place] # Eos # Lymph # (Auto) [place] # (Auto) Eos # (Auto) Seg Neutrophils % Seg Neuts % (Manual) Baso # (Auto) Lymphocytes % (Manual) Monocytes % (Manual) Eosinophils % (Manual) Basophils % (Manual) Seg Neutrophils # Seg Neutrophils # Man Lymphocytes # (Manual) Monocytes # (Manual) Eosinophils # (Manual) Nucleated RBC % Basophils # (Manual) PT INR APTT Heparin Anti-Xa Level ABG pH POC ABG pO2 ABG pO2 ABG HCO3 ABG O2 Saturation ABG Base Excess POC ABG pCO2 ABG Hemoglobin ABG Oxyhemoglobin ABG Sodium ABG Chloride ABG Glucose Oxyhemoglobin Sodium Potassium Chloride Carbon Dioxide BUN Creatinine Glucose POC Glucose 150 H 134 H Lactic Acid Calcium Phosphorus Magnesium AST ALT Lactate Dehydrogenase Total Bilirubin Direct Bilirubin CK-MB (CK-2) C-Reactive Protein NT-Pro-B Natriuret Pep Total Protein Albumin Arterial Blood Glucose Urine WBC (Auto) Urine Creatinine Digoxin 12/16/19 12/16/19 12/16/19 05:46 05:46 11:44 WBC RBC Hgb Hct MCHC RDW MCV MCH Lymph % (Auto) [place] % (Auto) [place] # Eos # Lymph # (Auto) [place] # (Auto) Eos # (Auto) Seg Neutrophils % Seg Neuts % (Manual) Baso # (Auto) Lymphocytes % (Manual) Monocytes % (Manual) Eosinophils % (Manual) Basophils % (Manual) Seg Neutrophils # Seg Neutrophils # Man Lymphocytes # (Manual) Monocytes # (Manual) Eosinophils # (Manual) Nucleated RBC % Basophils # (Manual) PT INR APTT Heparin Anti-Xa Level 0.20 L ABG pH POC ABG pO2 ABG pO2 ABG HCO3 ABG O2 Saturation ABG Base Excess POC ABG pCO2 ABG Hemoglobin ABG Oxyhemoglobin ABG Sodium ABG Chloride ABG Glucose Oxyhemoglobin Sodium Potassium Chloride Carbon Dioxide 31 H BUN Creatinine 0.5 L Glucose 147 H POC Glucose 164 H Lactic Acid Calcium Phosphorus Magnesium AST ALT Lactate Dehydrogenase Total Bilirubin Direct Bilirubin CK-MB (CK-2) C-Reactive Protein NT-Pro-B Natriuret Pep Total Protein Albumin Arterial Blood Glucose Urine WBC (Auto) Urine Creatinine Digoxin 12/16/19 12/16/19 12/17/19 17:17 23:49 05:30 WBC 13.9 H RBC 3.27 L Hgb 9.4 L Hct 29.2 L MCHC RDW 16.0 H MCV MCH Lymph % (Auto) [place] % (Auto) 8.8 H [place] # Eos # Lymph # (Auto) [place] # (Auto) 1.2 H Eos # (Auto) 0.5 H Seg Neutrophils % 70.5 H Seg Neuts % (Manual) Baso # (Auto) 0.2 H Lymphocytes % (Manual) Monocytes % (Manual) Eosinophils % (Manual) Basophils % (Manual) Seg Neutrophils # 9.8 H Seg Neutrophils # Man Lymphocytes # (Manual) Monocytes # (Manual) Eosinophils # (Manual) Nucleated RBC % Basophils # (Manual) PT INR APTT Heparin Anti-Xa Level ABG pH POC ABG pO2 ABG pO2 ABG HCO3 ABG O2 Saturation ABG Base Excess POC ABG pCO2 ABG Hemoglobin ABG Oxyhemoglobin ABG Sodium ABG Chloride ABG Glucose Oxyhemoglobin Sodium Potassium Chloride Carbon Dioxide BUN Creatinine Glucose POC Glucose 162 H 144 H Lactic Acid Calcium Phosphorus Magnesium AST ALT Lactate Dehydrogenase Total Bilirubin Direct Bilirubin CK-MB (CK-2) C-Reactive Protein NT-Pro-B Natriuret Pep Total Protein Albumin Arterial Blood Glucose Urine WBC (Auto) Urine Creatinine Digoxin 12/17/19 12/17/19 12/17/19 05:30 06:06 11:50 WBC RBC Hgb Hct MCHC RDW MCV MCH Lymph % (Auto) [place] % (Auto) [place] # Eos # Lymph # (Auto) [place] # (Auto) Eos # (Auto) Seg Neutrophils % Seg Neuts % (Manual) Baso # (Auto) Lymphocytes % (Manual) Monocytes % (Manual) Eosinophils % (Manual) Basophils % (Manual) Seg Neutrophils # Seg Neutrophils # Man Lymphocytes # (Manual) Monocytes # (Manual) Eosinophils # (Manual) Nucleated RBC % Basophils # (Manual) PT INR APTT Heparin Anti-Xa Level ABG pH POC ABG pO2 ABG pO2 ABG HCO3 ABG O2 Saturation ABG Base Excess POC ABG pCO2 ABG Hemoglobin ABG Oxyhemoglobin ABG Sodium ABG Chloride ABG Glucose Oxyhemoglobin Sodium Potassium Chloride 97.4 L Carbon Dioxide 32 H BUN Creatinine 0.5 L Glucose 135 H POC Glucose 151 H 140 H Lactic Acid Calcium Phosphorus Magnesium AST ALT Lactate Dehydrogenase Total Bilirubin Direct Bilirubin CK-MB (CK-2) C-Reactive Protein NT-Pro-B Natriuret Pep Total Protein Albumin Arterial Blood Glucose Urine WBC (Auto) Urine Creatinine Digoxin 12/17/19 12/17/19 12/18/19 17:50 23:46 05:17 WBC RBC Hgb 8.8 L Hct 28.0 L MCHC RDW MCV MCH Lymph % (Auto) [place] % (Auto) [place] # Eos # Lymph # (Auto) [place] # (Auto) Eos # (Auto) Seg Neutrophils % Seg Neuts % (Manual) Baso # (Auto) Lymphocytes % (Manual) Monocytes % (Manual) Eosinophils % (Manual) Basophils % (Manual) Seg Neutrophils # Seg Neutrophils # Man Lymphocytes # (Manual) Monocytes # (Manual) Eosinophils # (Manual) Nucleated RBC % Basophils # (Manual) PT INR APTT Heparin Anti-Xa Level ABG pH POC ABG pO2 ABG pO2 ABG HCO3 ABG O2 Saturation ABG Base Excess POC ABG pCO2 ABG Hemoglobin ABG Oxyhemoglobin ABG Sodium ABG Chloride ABG Glucose Oxyhemoglobin Sodium Potassium Chloride Carbon Dioxide BUN Creatinine Glucose POC Glucose 158 H 150 H Lactic Acid Calcium Phosphorus Magnesium AST ALT Lactate Dehydrogenase Total Bilirubin Direct Bilirubin CK-MB (CK-2) C-Reactive Protein NT-Pro-B Natriuret Pep Total Protein Albumin Arterial Blood Glucose Urine WBC (Auto) Urine Creatinine Digoxin 12/18/19 12/18/19 12/18/19 05:17 05:49 11:12 WBC RBC Hgb Hct MCHC RDW MCV MCH Lymph % (Auto) [place] % (Auto) [place] # Eos # Lymph # (Auto) [place] # (Auto) Eos # (Auto) Seg Neutrophils % Seg Neuts % (Manual) Baso # (Auto) Lymphocytes % (Manual) Monocytes % (Manual) Eosinophils % (Manual) Basophils % (Manual) Seg Neutrophils # Seg Neutrophils # Man Lymphocytes # (Manual) Monocytes # (Manual) Eosinophils # (Manual) Nucleated RBC % Basophils # (Manual) PT INR APTT Heparin Anti-Xa Level 0.16 L ABG pH POC ABG pO2 ABG pO2 ABG HCO3 ABG O2 Saturation ABG Base Excess POC ABG pCO2 ABG Hemoglobin ABG Oxyhemoglobin ABG Sodium ABG Chloride ABG Glucose Oxyhemoglobin Sodium Potassium Chloride Carbon Dioxide BUN Creatinine Glucose POC Glucose 127 H 191 H Lactic Acid Calcium Phosphorus Magnesium AST ALT Lactate Dehydrogenase Total Bilirubin Direct Bilirubin CK-MB (CK-2) C-Reactive Protein NT-Pro-B Natriuret Pep Total Protein Albumin Arterial Blood Glucose Urine WBC (Auto) Urine Creatinine Digoxin 12/18/19 12/18/19 12/19/19 17:03 20:16 00:08 WBC RBC Hgb Hct MCHC RDW MCV MCH Lymph % (Auto) [place] % (Auto) [place] # Eos # Lymph # (Auto) [place] # (Auto) Eos # (Auto) Seg Neutrophils % Seg Neuts % (Manual) Baso # (Auto) Lymphocytes % (Manual) Monocytes % (Manual) Eosinophils % (Manual) Basophils % (Manual) Seg Neutrophils # Seg Neutrophils # Man Lymphocytes # (Manual) Monocytes # (Manual) Eosinophils # (Manual) Nucleated RBC % Basophils # (Manual) PT INR APTT Heparin Anti-Xa Level ABG pH POC ABG pO2 ABG pO2 ABG HCO3 ABG O2 Saturation ABG Base Excess POC ABG pCO2 ABG Hemoglobin ABG Oxyhemoglobin ABG Sodium ABG Chloride ABG Glucose Oxyhemoglobin Sodium Potassium Chloride Carbon Dioxide BUN Creatinine Glucose POC Glucose 133 H 128 H 129 H Lactic Acid Calcium Phosphorus Magnesium AST ALT Lactate Dehydrogenase Total Bilirubin Direct Bilirubin CK-MB (CK-2) C-Reactive Protein NT-Pro-B Natriuret Pep Total Protein Albumin Arterial Blood Glucose Urine WBC (Auto) Urine Creatinine Digoxin 12/19/19 12/19/19 12/19/19 04:45 04:45 05:35 WBC RBC Hgb Hct MCHC RDW MCV MCH Lymph % (Auto) [place] % (Auto) [place] # Eos # Lymph # (Auto) [place] # (Auto) Eos # (Auto) Seg Neutrophils % Seg Neuts % (Manual) Baso # (Auto) Lymphocytes % (Manual) Monocytes % (Manual) Eosinophils % (Manual) Basophils % (Manual) Seg Neutrophils # Seg Neutrophils # Man Lymphocytes # (Manual) Monocytes # (Manual) Eosinophils # (Manual) Nucleated RBC % Basophils # (Manual) PT INR APTT Heparin Anti-Xa Level 0.17 L ABG pH POC ABG pO2 ABG pO2 ABG HCO3 ABG O2 Saturation ABG Base Excess POC ABG pCO2 ABG Hemoglobin ABG Oxyhemoglobin ABG Sodium ABG Chloride ABG Glucose Oxyhemoglobin Sodium Potassium Chloride Carbon Dioxide BUN Creatinine Glucose POC Glucose 120 H Lactic Acid Calcium Phosphorus Magnesium AST ALT Lactate Dehydrogenase 228 H Total Bilirubin Direct Bilirubin CK-MB (CK-2) C-Reactive Protein NT-Pro-B Natriuret Pep Total Protein Albumin Arterial Blood Glucose Urine WBC (Auto) Urine Creatinine Digoxin 12/19/19 12/19/19 12/19/19 09:20 11:32 11:32 WBC 14.6 H RBC 3.08 L Hgb 9.0 L Hct 26.8 L MCHC RDW 15.9 H MCV MCH Lymph % (Auto) [place] % (Auto) [place] # Eos # Lymph # (Auto) [place] # (Auto) Eos # (Auto) Seg Neutrophils % Seg Neuts % (Manual) 82.0 H Baso # (Auto) Lymphocytes % (Manual) 10.0 L Monocytes % (Manual) Eosinophils % (Manual) Basophils % (Manual) Seg Neutrophils # Seg Neutrophils # Man 12.0 H Lymphocytes # (Manual) Monocytes # (Manual) 0.9 H Eosinophils # (Manual) Nucleated RBC % 1.0 H Basophils # (Manual) PT INR APTT Heparin Anti-Xa Level ABG pH 7.451 H POC ABG pO2 ABG pO2 62.6 L ABG HCO3 33.2 H ABG O2 Saturation 93.8 L ABG Base Excess 8.3 H POC ABG pCO2 ABG Hemoglobin 8.3 L ABG Oxyhemoglobin ABG Sodium ABG Chloride ABG Glucose Oxyhemoglobin 91.9 L Sodium Potassium Chloride 95.0 L Carbon Dioxide 33 H BUN 22 H Creatinine 0.6 L Glucose 150 H POC Glucose Lactic Acid Calcium Phosphorus Magnesium AST ALT Lactate Dehydrogenase Total Bilirubin Direct Bilirubin CK-MB (CK-2) C-Reactive Protein NT-Pro-B Natriuret Pep Total Protein 6.2 L Albumin 2.4 L Arterial Blood Glucose Urine WBC (Auto) Urine Creatinine Digoxin 12/19/19 12/19/19 12/20/19 11:56 18:17 00:09 WBC RBC Hgb Hct MCHC RDW MCV MCH Lymph % (Auto) [place] % (Auto) [place] # Eos # Lymph # (Auto) [place] # (Auto) Eos # (Auto) Seg Neutrophils % Seg Neuts % (Manual) Baso # (Auto) Lymphocytes % (Manual) Monocytes % (Manual) Eosinophils % (Manual) Basophils % (Manual) Seg Neutrophils # Seg Neutrophils # Man Lymphocytes # (Manual) Monocytes # (Manual) Eosinophils # (Manual) Nucleated RBC % Basophils # (Manual) PT INR APTT Heparin Anti-Xa Level ABG pH POC ABG pO2 ABG pO2 ABG HCO3 ABG O2 Saturation ABG Base Excess POC ABG pCO2 ABG Hemoglobin ABG Oxyhemoglobin ABG Sodium ABG Chloride ABG Glucose Oxyhemoglobin Sodium Potassium Chloride Carbon Dioxide BUN Creatinine Glucose POC Glucose 156 H 156 H 155 H Lactic Acid Calcium Phosphorus Magnesium AST ALT Lactate Dehydrogenase Total Bilirubin Direct Bilirubin CK-MB (CK-2) C-Reactive Protein NT-Pro-B Natriuret Pep Total Protein Albumin Arterial Blood Glucose Urine WBC (Auto) Urine Creatinine Digoxin 12/20/19 12/20/19 12/20/19 05:26 06:02 18:17 WBC RBC Hgb Hct MCHC RDW MCV MCH Lymph % (Auto) [place] % (Auto) [place] # Eos # Lymph # (Auto) [place] # (Auto) Eos # (Auto) Seg Neutrophils % Seg Neuts % (Manual) Baso # (Auto) Lymphocytes % (Manual) Monocytes % (Manual) Eosinophils % (Manual) Basophils % (Manual) Seg Neutrophils # Seg Neutrophils # Man Lymphocytes # (Manual) Monocytes # (Manual) Eosinophils # (Manual) Nucleated RBC % Basophils # (Manual) PT INR APTT Heparin Anti-Xa Level 0.19 L ABG pH POC ABG pO2 ABG pO2 ABG HCO3 ABG O2 Saturation ABG Base Excess POC ABG pCO2 ABG Hemoglobin ABG Oxyhemoglobin ABG Sodium ABG Chloride ABG Glucose Oxyhemoglobin Sodium Potassium Chloride Carbon Dioxide BUN Creatinine Glucose POC Glucose 137 H 128 H Lactic Acid Calcium Phosphorus Magnesium AST ALT Lactate Dehydrogenase Total Bilirubin Direct Bilirubin CK-MB (CK-2) C-Reactive Protein NT-Pro-B Natriuret Pep Total Protein Albumin Arterial Blood Glucose Urine WBC (Auto) Urine Creatinine Digoxin 12/20/19 12/21/19 12/21/19 23:34 05:31 05:31 WBC 12.7 H RBC 3.09 L Hgb 8.9 L Hct 27.4 L MCHC RDW 15.8 H MCV MCH Lymph % (Auto) 12.1 L [place] % (Auto) 7.8 H [place] # Eos # Lymph # (Auto) [place] # (Auto) 1.0 H Eos # (Auto) Seg Neutrophils % 77.1 H Seg Neuts % (Manual) Baso # (Auto) Lymphocytes % (Manual) Monocytes % (Manual) Eosinophils % (Manual) Basophils % (Manual) Seg Neutrophils # 9.8 H Seg Neutrophils # Man Lymphocytes # (Manual) Monocytes # (Manual) Eosinophils # (Manual) Nucleated RBC % Basophils # (Manual) PT INR APTT Heparin Anti-Xa Level ABG pH POC ABG pO2 ABG pO2 ABG HCO3 ABG O2 Saturation ABG Base Excess POC ABG pCO2 ABG Hemoglobin ABG Oxyhemoglobin ABG Sodium ABG Chloride ABG Glucose Oxyhemoglobin Sodium Potassium Chloride 96.9 L Carbon Dioxide 37 H BUN 27 H Creatinine 0.7 L Glucose 140 H POC Glucose 145 H Lactic Acid Calcium Phosphorus Magnesium AST ALT Lactate Dehydrogenase Total Bilirubin Direct Bilirubin CK-MB (CK-2) C-Reactive Protein NT-Pro-B Natriuret Pep Total Protein Albumin Arterial Blood Glucose Urine WBC (Auto) Urine Creatinine Digoxin 12/21/19 12/21/19 12/21/19 05:38 10:13 11:51 WBC RBC Hgb Hct MCHC RDW MCV MCH Lymph % (Auto) [place] % (Auto) [place] # Eos # Lymph # (Auto) [place] # (Auto) Eos # (Auto) Seg Neutrophils % Seg Neuts % (Manual) Baso # (Auto) Lymphocytes % (Manual) Monocytes % (Manual) Eosinophils % (Manual) Basophils % (Manual) Seg Neutrophils # Seg Neutrophils # Man Lymphocytes # (Manual) Monocytes # (Manual) Eosinophils # (Manual) Nucleated RBC % Basophils # (Manual) PT INR APTT 23.9 L Heparin Anti-Xa Level < 0.10 L ABG pH POC ABG pO2 ABG pO2 ABG HCO3 ABG O2 Saturation ABG Base Excess POC ABG pCO2 ABG Hemoglobin ABG Oxyhemoglobin ABG Sodium ABG Chloride ABG Glucose Oxyhemoglobin Sodium Potassium Chloride Carbon Dioxide BUN Creatinine Glucose POC Glucose 151 H 145 H Lactic Acid Calcium Phosphorus Magnesium AST ALT Lactate Dehydrogenase Total Bilirubin Direct Bilirubin CK-MB (CK-2) C-Reactive Protein NT-Pro-B Natriuret Pep Total Protein Albumin Arterial Blood Glucose Urine WBC (Auto) Urine Creatinine Digoxin 12/21/19 12/22/19 12/22/19 17:16 00:01 01:33 WBC RBC Hgb Hct MCHC RDW MCV MCH Lymph % (Auto) [place] % (Auto) [place] # Eos # Lymph # (Auto) [place] # (Auto) Eos # (Auto) Seg Neutrophils % Seg Neuts % (Manual) Baso # (Auto) Lymphocytes % (Manual) Monocytes % (Manual) Eosinophils % (Manual) Basophils % (Manual) Seg Neutrophils # Seg Neutrophils # Man Lymphocytes # (Manual) Monocytes # (Manual) Eosinophils # (Manual) Nucleated RBC % Basophils # (Manual) PT INR APTT Heparin Anti-Xa Level 0.10 L ABG pH POC ABG pO2 ABG pO2 ABG HCO3 ABG O2 Saturation ABG Base Excess POC ABG pCO2 ABG Hemoglobin ABG Oxyhemoglobin ABG Sodium ABG Chloride ABG Glucose Oxyhemoglobin Sodium Potassium Chloride Carbon Dioxide BUN Creatinine Glucose POC Glucose 167 H 179 H Lactic Acid Calcium Phosphorus Magnesium AST ALT Lactate Dehydrogenase Total Bilirubin Direct Bilirubin CK-MB (CK-2) C-Reactive Protein NT-Pro-B Natriuret Pep Total Protein Albumin Arterial Blood Glucose Urine WBC (Auto) Urine Creatinine Digoxin 12/22/19 12/22/19 12/22/19 03:22 05:10 05:10 WBC 13.8 H RBC 3.20 L Hgb 8.9 L Hct 28.1 L MCHC RDW 15.9 H MCV MCH Lymph % (Auto) [place] % (Auto) [place] # Eos # Lymph # (Auto) [place] # (Auto) Eos # (Auto) Seg Neutrophils % Seg Neuts % (Manual) Baso # (Auto) Lymphocytes % (Manual) Monocytes % (Manual) Eosinophils % (Manual) Basophils % (Manual) Seg Neutrophils # Seg Neutrophils # Man Lymphocytes # (Manual) Monocytes # (Manual) Eosinophils # (Manual) Nucleated RBC % Basophils # (Manual) PT INR APTT Heparin Anti-Xa Level ABG pH POC ABG pO2 52.3 L ABG pO2 ABG HCO3 ABG O2 Saturation ABG Base Excess POC ABG pCO2 52.9 H ABG Hemoglobin 10.7 L ABG Oxyhemoglobin 84 L ABG Sodium ABG Chloride ABG Glucose Oxyhemoglobin Sodium Potassium Chloride 96.6 L Carbon Dioxide BUN 25 H Creatinine 0.7 L Glucose 129 H POC Glucose Lactic Acid Calcium Phosphorus Magnesium AST ALT Lactate Dehydrogenase Total Bilirubin Direct Bilirubin CK-MB (CK-2) C-Reactive Protein NT-Pro-B Natriuret Pep Total Protein Albumin Arterial Blood Glucose Urine WBC (Auto) Urine Creatinine Digoxin 12/22/19 12/22/19 12/22/19 05:18 12:32 12:43 WBC RBC Hgb Hct MCHC RDW MCV MCH Lymph % (Auto) [place] % (Auto) [place] # Eos # Lymph # (Auto) [place] # (Auto) Eos # (Auto) Seg Neutrophils % Seg Neuts % (Manual) Baso # (Auto) Lymphocytes % (Manual) Monocytes % (Manual) Eosinophils % (Manual) Basophils % (Manual) Seg Neutrophils # Seg Neutrophils # Man Lymphocytes # (Manual) Monocytes # (Manual) Eosinophils # (Manual) Nucleated RBC % Basophils # (Manual) PT INR APTT Heparin Anti-Xa Level 0.18 L ABG pH POC ABG pO2 ABG pO2 ABG HCO3 ABG O2 Saturation ABG Base Excess POC ABG pCO2 ABG Hemoglobin ABG Oxyhemoglobin ABG Sodium ABG Chloride ABG Glucose Oxyhemoglobin Sodium Potassium Chloride Carbon Dioxide BUN Creatinine Glucose POC Glucose 131 H 208 H Lactic Acid Calcium Phosphorus Magnesium AST ALT Lactate Dehydrogenase Total Bilirubin Direct Bilirubin CK-MB (CK-2) C-Reactive Protein NT-Pro-B Natriuret Pep Total Protein Albumin Arterial Blood Glucose Urine WBC (Auto) Urine Creatinine Digoxin 12/22/19 12/22/19 12/23/19 17:44 23:20 03:51 WBC 15.2 H RBC 3.43 L Hgb 9.6 L Hct 30.3 L MCHC RDW 15.9 H MCV MCH Lymph % (Auto) [place] % (Auto) [place] # Eos # Lymph # (Auto) [place] # (Auto) Eos # (Auto) Seg Neutrophils % Seg Neuts % (Manual) Baso # (Auto) Lymphocytes % (Manual) Monocytes % (Manual) Eosinophils % (Manual) Basophils % (Manual) Seg Neutrophils # Seg Neutrophils # Man Lymphocytes # (Manual) Monocytes # (Manual) Eosinophils # (Manual) Nucleated RBC % Basophils # (Manual) PT INR APTT Heparin Anti-Xa Level ABG pH POC ABG pO2 ABG pO2 ABG HCO3 ABG O2 Saturation ABG Base Excess POC ABG pCO2 ABG Hemoglobin ABG Oxyhemoglobin ABG Sodium ABG Chloride ABG Glucose Oxyhemoglobin Sodium Potassium Chloride Carbon Dioxide BUN Creatinine Glucose POC Glucose 209 H 119 H Lactic Acid Calcium Phosphorus Magnesium AST ALT Lactate Dehydrogenase Total Bilirubin Direct Bilirubin CK-MB (CK-2) C-Reactive Protein NT-Pro-B Natriuret Pep Total Protein Albumin Arterial Blood Glucose Urine WBC (Auto) Urine Creatinine Digoxin 12/23/19 12/23/19 12/23/19 03:51 05:31 12:09 WBC RBC Hgb Hct MCHC RDW MCV MCH Lymph % (Auto) [place] % (Auto) [place] # Eos # Lymph # (Auto) [place] # (Auto) Eos # (Auto) Seg Neutrophils % Seg Neuts % (Manual) Baso # (Auto) Lymphocytes % (Manual) Monocytes % (Manual) Eosinophils % (Manual) Basophils % (Manual) Seg Neutrophils # Seg Neutrophils # Man Lymphocytes # (Manual) Monocytes # (Manual) Eosinophils # (Manual) Nucleated RBC % Basophils # (Manual) PT INR APTT Heparin Anti-Xa Level ABG pH POC ABG pO2 ABG pO2 ABG HCO3 ABG O2 Saturation ABG Base Excess POC ABG pCO2 ABG Hemoglobin ABG Oxyhemoglobin ABG Sodium ABG Chloride ABG Glucose Oxyhemoglobin Sodium Potassium Chloride 97.2 L Carbon Dioxide 31 H BUN 23 H Creatinine 0.6 L Glucose 153 H POC Glucose 149 H 144 H Lactic Acid Calcium Phosphorus Magnesium AST ALT Lactate Dehydrogenase Total Bilirubin Direct Bilirubin CK-MB (CK-2) C-Reactive Protein NT-Pro-B Natriuret Pep Total Protein Albumin Arterial Blood Glucose Urine WBC (Auto) Urine Creatinine Digoxin 12/23/19 12/23/19 12/23/19 15:30 17:49 23:31 WBC RBC Hgb Hct MCHC RDW MCV MCH Lymph % (Auto) [place] % (Auto) [place] # Eos # Lymph # (Auto) [place] # (Auto) Eos # (Auto) Seg Neutrophils % Seg Neuts % (Manual) Baso # (Auto) Lymphocytes % (Manual) Monocytes % (Manual) Eosinophils % (Manual) Basophils % (Manual) Seg Neutrophils # Seg Neutrophils # Man Lymphocytes # (Manual) Monocytes # (Manual) Eosinophils # (Manual) Nucleated RBC % Basophils # (Manual) PT INR APTT Heparin Anti-Xa Level 0.21 L ABG pH POC ABG pO2 ABG pO2 ABG HCO3 ABG O2 Saturation ABG Base Excess POC ABG pCO2 ABG Hemoglobin ABG Oxyhemoglobin ABG Sodium ABG Chloride ABG Glucose Oxyhemoglobin Sodium Potassium Chloride Carbon Dioxide BUN Creatinine Glucose POC Glucose 192 H 151 H Lactic Acid Calcium Phosphorus Magnesium AST ALT Lactate Dehydrogenase Total Bilirubin Direct Bilirubin CK-MB (CK-2) C-Reactive Protein NT-Pro-B Natriuret Pep Total Protein Albumin Arterial Blood Glucose Urine WBC (Auto) Urine Creatinine Digoxin 12/24/19 12/24/19 12/24/19 05:34 12:13 16:50 WBC RBC Hgb Hct MCHC RDW MCV MCH Lymph % (Auto) [place] % (Auto) [place] # Eos # Lymph # (Auto) [place] # (Auto) Eos # (Auto) Seg Neutrophils % Seg Neuts % (Manual) Baso # (Auto) Lymphocytes % (Manual) Monocytes % (Manual) Eosinophils % (Manual) Basophils % (Manual) Seg Neutrophils # Seg Neutrophils # Man Lymphocytes # (Manual) Monocytes # (Manual) Eosinophils # (Manual) Nucleated RBC % Basophils # (Manual) PT INR APTT Heparin Anti-Xa Level 0.16 L ABG pH POC ABG pO2 ABG pO2 ABG HCO3 ABG O2 Saturation ABG Base Excess POC ABG pCO2 ABG Hemoglobin ABG Oxyhemoglobin ABG Sodium ABG Chloride ABG Glucose Oxyhemoglobin Sodium Potassium Chloride Carbon Dioxide BUN Creatinine Glucose POC Glucose 145 H 124 H Lactic Acid Calcium Phosphorus Magnesium AST ALT Lactate Dehydrogenase Total Bilirubin Direct Bilirubin CK-MB (CK-2) C-Reactive Protein NT-Pro-B Natriuret Pep Total Protein Albumin Arterial Blood Glucose Urine WBC (Auto) Urine Creatinine Digoxin 12/24/19 12/25/19 12/25/19 17:53 00:14 04:18 WBC 12.9 H RBC 3.30 L Hgb 9.1 L Hct 28.8 L MCHC RDW 16.4 H MCV MCH Lymph % (Auto) [place] % (Auto) 7.8 H [place] # Eos # Lymph # (Auto) [place] # (Auto) 1.0 H Eos # (Auto) Seg Neutrophils % 75.5 H Seg Neuts % (Manual) Baso # (Auto) Lymphocytes % (Manual) Monocytes % (Manual) Eosinophils % (Manual) Basophils % (Manual) Seg Neutrophils # 9.7 H Seg Neutrophils # Man Lymphocytes # (Manual) Monocytes # (Manual) Eosinophils # (Manual) Nucleated RBC % Basophils # (Manual) PT INR APTT Heparin Anti-Xa Level ABG pH POC ABG pO2 ABG pO2 ABG HCO3 ABG O2 Saturation ABG Base Excess POC ABG pCO2 ABG Hemoglobin ABG Oxyhemoglobin ABG Sodium ABG Chloride ABG Glucose Oxyhemoglobin Sodium Potassium Chloride Carbon Dioxide BUN Creatinine Glucose POC Glucose 164 H 148 H Lactic Acid Calcium Phosphorus Magnesium AST ALT Lactate Dehydrogenase Total Bilirubin Direct Bilirubin CK-MB (CK-2) C-Reactive Protein NT-Pro-B Natriuret Pep Total Protein Albumin Arterial Blood Glucose Urine WBC (Auto) Urine Creatinine Digoxin 12/25/19 12/25/19 12/25/19 04:18 05:38 11:44 WBC RBC Hgb Hct MCHC RDW MCV MCH Lymph % (Auto) [place] % (Auto) [place] # Eos # Lymph # (Auto) [place] # (Auto) Eos # (Auto) Seg Neutrophils % Seg Neuts % (Manual) Baso # (Auto) Lymphocytes % (Manual) Monocytes % (Manual) Eosinophils % (Manual) Basophils % (Manual) Seg Neutrophils # Seg Neutrophils # Man Lymphocytes # (Manual) Monocytes # (Manual) Eosinophils # (Manual) Nucleated RBC % Basophils # (Manual) PT INR APTT Heparin Anti-Xa Level ABG pH POC ABG pO2 ABG pO2 ABG HCO3 ABG O2 Saturation ABG Base Excess POC ABG pCO2 ABG Hemoglobin ABG Oxyhemoglobin ABG Sodium ABG Chloride ABG Glucose Oxyhemoglobin Sodium Potassium Chloride Carbon Dioxide 33 H BUN 27 H Creatinine 0.6 L Glucose 132 H POC Glucose 152 H 166 H Lactic Acid Calcium Phosphorus Magnesium AST ALT Lactate Dehydrogenase Total Bilirubin Direct Bilirubin CK-MB (CK-2) C-Reactive Protein NT-Pro-B Natriuret Pep Total Protein Albumin Arterial Blood Glucose Urine WBC (Auto) Urine Creatinine Digoxin 12/25/19 12/26/19 12/26/19 18:29 00:17 00:18 WBC RBC Hgb Hct MCHC RDW MCV MCH Lymph % (Auto) [place] % (Auto) [place] # Eos # Lymph # (Auto) [place] # (Auto) Eos # (Auto) Seg Neutrophils % Seg Neuts % (Manual) Baso # (Auto) Lymphocytes % (Manual) Monocytes % (Manual) Eosinophils % (Manual) Basophils % (Manual) Seg Neutrophils # Seg Neutrophils # Man Lymphocytes # (Manual) Monocytes # (Manual) Eosinophils # (Manual) Nucleated RBC % Basophils # (Manual) PT INR APTT Heparin Anti-Xa Level ABG pH POC ABG pO2 ABG pO2 ABG HCO3 ABG O2 Saturation ABG Base Excess POC ABG pCO2 ABG Hemoglobin ABG Oxyhemoglobin ABG Sodium ABG Chloride ABG Glucose Oxyhemoglobin Sodium Potassium Chloride 97.8 L Carbon Dioxide BUN 25 H Creatinine 0.6 L Glucose 140 H POC Glucose 194 H 151 H Lactic Acid Calcium Phosphorus Magnesium AST ALT Lactate Dehydrogenase Total Bilirubin Direct Bilirubin CK-MB (CK-2) C-Reactive Protein NT-Pro-B Natriuret Pep Total Protein Albumin Arterial Blood Glucose Urine WBC (Auto) Urine Creatinine Digoxin 12/26/19 12/26/19 12/26/19 05:36 11:41 17:50 WBC RBC Hgb Hct MCHC RDW MCV MCH Lymph % (Auto) [place] % (Auto) [place] # Eos # Lymph # (Auto) [place] # (Auto) Eos # (Auto) Seg Neutrophils % Seg Neuts % (Manual) Baso # (Auto) Lymphocytes % (Manual) Monocytes % (Manual) Eosinophils % (Manual) Basophils % (Manual) Seg Neutrophils # Seg Neutrophils # Man Lymphocytes # (Manual) Monocytes # (Manual) Eosinophils # (Manual) Nucleated RBC % Basophils # (Manual) PT INR APTT Heparin Anti-Xa Level ABG pH POC ABG pO2 ABG pO2 ABG HCO3 ABG O2 Saturation ABG Base Excess POC ABG pCO2 ABG Hemoglobin ABG Oxyhemoglobin ABG Sodium ABG Chloride ABG Glucose Oxyhemoglobin Sodium Potassium Chloride Carbon Dioxide BUN Creatinine Glucose POC Glucose 156 H 148 H 139 H Lactic Acid Calcium Phosphorus Magnesium AST ALT Lactate Dehydrogenase Total Bilirubin Direct Bilirubin CK-MB (CK-2) C-Reactive Protein NT-Pro-B Natriuret Pep Total Protein Albumin Arterial Blood Glucose Urine WBC (Auto) Urine Creatinine Digoxin 12/26/19 12/27/19 12/27/19 23:19 05:34 12:02 WBC RBC Hgb Hct MCHC RDW MCV MCH Lymph % (Auto) [place] % (Auto) [place] # Eos # Lymph # (Auto) [place] # (Auto) Eos # (Auto) Seg Neutrophils % Seg Neuts % (Manual) Baso # (Auto) Lymphocytes % (Manual) Monocytes % (Manual) Eosinophils % (Manual) Basophils % (Manual) Seg Neutrophils # Seg Neutrophils # Man Lymphocytes # (Manual) Monocytes # (Manual) Eosinophils # (Manual) Nucleated RBC % Basophils # (Manual) PT INR APTT Heparin Anti-Xa Level ABG pH POC ABG pO2 ABG pO2 ABG HCO3 ABG O2 Saturation ABG Base Excess POC ABG pCO2 ABG Hemoglobin ABG Oxyhemoglobin ABG Sodium ABG Chloride ABG Glucose Oxyhemoglobin Sodium Potassium Chloride Carbon Dioxide BUN Creatinine Glucose POC Glucose 161 H 145 H 157 H Lactic Acid Calcium Phosphorus Magnesium AST ALT Lactate Dehydrogenase Total Bilirubin Direct Bilirubin CK-MB (CK-2) C-Reactive Protein NT-Pro-B Natriuret Pep Total Protein Albumin Arterial Blood Glucose Urine WBC (Auto) Urine Creatinine Digoxin 12/27/19 12/27/19 12/27/19 17:35 20:11 23:00 WBC RBC Hgb Hct MCHC RDW MCV MCH Lymph % (Auto) [place] % (Auto) [place] # Eos # Lymph # (Auto) [place] # (Auto) Eos # (Auto) Seg Neutrophils % Seg Neuts % (Manual) Baso # (Auto) Lymphocytes % (Manual) Monocytes % (Manual) Eosinophils % (Manual) Basophils % (Manual) Seg Neutrophils # Seg Neutrophils # Man Lymphocytes # (Manual) Monocytes # (Manual) Eosinophils # (Manual) Nucleated RBC % Basophils # (Manual) PT INR APTT Heparin Anti-Xa Level 0.19 L ABG pH POC ABG pO2 ABG pO2 ABG HCO3 ABG O2 Saturation ABG Base Excess POC ABG pCO2 ABG Hemoglobin ABG Oxyhemoglobin ABG Sodium ABG Chloride ABG Glucose Oxyhemoglobin Sodium Potassium Chloride Carbon Dioxide BUN Creatinine Glucose POC Glucose 158 H 155 H Lactic Acid Calcium Phosphorus Magnesium AST ALT Lactate Dehydrogenase Total Bilirubin Direct Bilirubin CK-MB (CK-2) C-Reactive Protein NT-Pro-B Natriuret Pep Total Protein Albumin Arterial Blood Glucose Urine WBC (Auto) Urine Creatinine Digoxin 12/27/19 12/28/19 12/28/19 23:45 02:41 02:41 WBC 13.0 H RBC 3.48 L Hgb 9.5 L Hct 30.6 L MCHC 31 L RDW 16.6 H MCV MCH 27 L Lymph % (Auto) 13.0 L [place] % (Auto) 8.0 H [place] # Eos # Lymph # (Auto) [place] # (Auto) 1.0 H Eos # (Auto) Seg Neutrophils % 76.3 H Seg Neuts % (Manual) Baso # (Auto) Lymphocytes % (Manual) Monocytes % (Manual) Eosinophils % (Manual) Basophils % (Manual) Seg Neutrophils # 9.9 H Seg Neutrophils # Man Lymphocytes # (Manual) Monocytes # (Manual) Eosinophils # (Manual) Nucleated RBC % Basophils # (Manual) PT INR APTT Heparin Anti-Xa Level ABG pH POC ABG pO2 ABG pO2 ABG HCO3 ABG O2 Saturation ABG Base Excess POC ABG pCO2 ABG Hemoglobin ABG Oxyhemoglobin ABG Sodium ABG Chloride ABG Glucose Oxyhemoglobin Sodium Potassium Chloride Carbon Dioxide BUN 22 H Creatinine 0.6 L Glucose 101 H POC Glucose 130 H Lactic Acid Calcium Phosphorus Magnesium AST ALT Lactate Dehydrogenase Total Bilirubin Direct Bilirubin CK-MB (CK-2) C-Reactive Protein NT-Pro-B Natriuret Pep Total Protein Albumin Arterial Blood Glucose Urine WBC (Auto) Urine Creatinine Digoxin 12/28/19 12/28/19 12/28/19 06:00 12:34 18:13 WBC RBC Hgb Hct MCHC RDW MCV MCH Lymph % (Auto) [place] % (Auto) [place] # Eos # Lymph # (Auto) [place] # (Auto) Eos # (Auto) Seg Neutrophils % Seg Neuts % (Manual) Baso # (Auto) Lymphocytes % (Manual) Monocytes % (Manual) Eosinophils % (Manual) Basophils % (Manual) Seg Neutrophils # Seg Neutrophils # Man Lymphocytes # (Manual) Monocytes # (Manual) Eosinophils # (Manual) Nucleated RBC % Basophils # (Manual) PT INR APTT Heparin Anti-Xa Level ABG pH POC ABG pO2 ABG pO2 ABG HCO3 ABG O2 Saturation ABG Base Excess POC ABG pCO2 ABG Hemoglobin ABG Oxyhemoglobin ABG Sodium ABG Chloride ABG Glucose Oxyhemoglobin Sodium Potassium Chloride Carbon Dioxide BUN Creatinine Glucose POC Glucose 150 H 161 H 128 H Lactic Acid Calcium Phosphorus Magnesium AST ALT Lactate Dehydrogenase Total Bilirubin Direct Bilirubin CK-MB (CK-2) C-Reactive Protein NT-Pro-B Natriuret Pep Total Protein Albumin Arterial Blood Glucose Urine WBC (Auto) Urine Creatinine Digoxin 12/28/19 12/29/19 12/29/19 23:36 05:21 11:40 WBC RBC Hgb Hct MCHC RDW MCV MCH Lymph % (Auto) [place] % (Auto) [place] # Eos # Lymph # (Auto) [place] # (Auto) Eos # (Auto) Seg Neutrophils % Seg Neuts % (Manual) Baso # (Auto) Lymphocytes % (Manual) Monocytes % (Manual) Eosinophils % (Manual) Basophils % (Manual) Seg Neutrophils # Seg Neutrophils # Man Lymphocytes # (Manual) Monocytes # (Manual) Eosinophils # (Manual) Nucleated RBC % Basophils # (Manual) PT INR APTT Heparin Anti-Xa Level ABG pH POC ABG pO2 ABG pO2 ABG HCO3 ABG O2 Saturation ABG Base Excess POC ABG pCO2 ABG Hemoglobin ABG Oxyhemoglobin ABG Sodium ABG Chloride ABG Glucose Oxyhemoglobin Sodium Potassium Chloride Carbon Dioxide BUN Creatinine Glucose POC Glucose 137 H 136 H 166 H Lactic Acid Calcium Phosphorus Magnesium AST ALT Lactate Dehydrogenase Total Bilirubin Direct Bilirubin CK-MB (CK-2) C-Reactive Protein NT-Pro-B Natriuret Pep Total Protein Albumin Arterial Blood Glucose Urine WBC (Auto) Urine Creatinine Digoxin 12/29/19 12/29/19 12/29/19 17:23 19:21 23:38 WBC RBC Hgb Hct MCHC RDW MCV MCH Lymph % (Auto) [place] % (Auto) [place] # Eos # Lymph # (Auto) [place] # (Auto) Eos # (Auto) Seg Neutrophils % Seg Neuts % (Manual) Baso # (Auto) Lymphocytes % (Manual) Monocytes % (Manual) Eosinophils % (Manual) Basophils % (Manual) Seg Neutrophils # Seg Neutrophils # Man Lymphocytes # (Manual) Monocytes # (Manual) Eosinophils # (Manual) Nucleated RBC % Basophils # (Manual) PT INR APTT Heparin Anti-Xa Level 0.20 L ABG pH POC ABG pO2 ABG pO2 ABG HCO3 ABG O2 Saturation ABG Base Excess POC ABG pCO2 ABG Hemoglobin ABG Oxyhemoglobin ABG Sodium ABG Chloride ABG Glucose Oxyhemoglobin Sodium Potassium Chloride Carbon Dioxide BUN Creatinine Glucose POC Glucose 144 H 141 H Lactic Acid Calcium Phosphorus Magnesium AST ALT Lactate Dehydrogenase Total Bilirubin Direct Bilirubin CK-MB (CK-2) C-Reactive Protein NT-Pro-B Natriuret Pep Total Protein Albumin Arterial Blood Glucose Urine WBC (Auto) Urine Creatinine Digoxin 12/30/19 12/30/19 12/30/19 03:58 03:58 04:59 WBC RBC 3.54 L Hgb 9.8 L Hct 30.7 L MCHC RDW 16.8 H MCV MCH Lymph % (Auto) [place] % (Auto) [place] # Eos # Lymph # (Auto) [place] # (Auto) Eos # (Auto) Seg Neutrophils % Seg Neuts % (Manual) Baso # (Auto) Lymphocytes % (Manual) Monocytes % (Manual) Eosinophils % (Manual) Basophils % (Manual) Seg Neutrophils # Seg Neutrophils # Man Lymphocytes # (Manual) Monocytes # (Manual) Eosinophils # (Manual) Nucleated RBC % Basophils # (Manual) PT INR APTT Heparin Anti-Xa Level ABG pH POC ABG pO2 ABG pO2 ABG HCO3 29.8 H ABG O2 Saturation ABG Base Excess 4.8 H POC ABG pCO2 ABG Hemoglobin 11.2 L ABG Oxyhemoglobin ABG Sodium ABG Chloride ABG Glucose Oxyhemoglobin 93.8 L Sodium Potassium Chloride 97.8 L Carbon Dioxide BUN 26 H Creatinine Glucose 168 H POC Glucose Lactic Acid Calcium Phosphorus Magnesium AST ALT Lactate Dehydrogenase Total Bilirubin Direct Bilirubin CK-MB (CK-2) C-Reactive Protein NT-Pro-B Natriuret Pep Total Protein Albumin Arterial Blood Glucose Urine WBC (Auto) Urine Creatinine Digoxin 12/30/19 12/30/19 12/30/19 05:45 11:34 17:28 WBC RBC Hgb Hct MCHC RDW MCV MCH Lymph % (Auto) [place] % (Auto) [place] # Eos # Lymph # (Auto) [place] # (Auto) Eos # (Auto) Seg Neutrophils % Seg Neuts % (Manual) Baso # (Auto) Lymphocytes % (Manual) Monocytes % (Manual) Eosinophils % (Manual) Basophils % (Manual) Seg Neutrophils # Seg Neutrophils # Man Lymphocytes # (Manual) Monocytes # (Manual) Eosinophils # (Manual) Nucleated RBC % Basophils # (Manual) PT INR APTT Heparin Anti-Xa Level ABG pH POC ABG pO2 ABG pO2 ABG HCO3 ABG O2 Saturation ABG Base Excess POC ABG pCO2 ABG Hemoglobin ABG Oxyhemoglobin ABG Sodium ABG Chloride ABG Glucose Oxyhemoglobin Sodium Potassium Chloride Carbon Dioxide BUN Creatinine Glucose POC Glucose 163 H 180 H 150 H Lactic Acid Calcium Phosphorus Magnesium AST ALT Lactate Dehydrogenase Total Bilirubin Direct Bilirubin CK-MB (CK-2) C-Reactive Protein NT-Pro-B Natriuret Pep Total Protein Albumin Arterial Blood Glucose Urine WBC (Auto) Urine Creatinine Digoxin 12/30/19 12/31/19 12/31/19 23:43 04:55 05:07 WBC RBC Hgb Hct MCHC RDW MCV MCH Lymph % (Auto) [place] % (Auto) [place] # Eos # Lymph # (Auto) [place] # (Auto) Eos # (Auto) Seg Neutrophils % Seg Neuts % (Manual) Baso # (Auto) Lymphocytes % (Manual) Monocytes % (Manual) Eosinophils % (Manual) Basophils % (Manual) Seg Neutrophils # Seg Neutrophils # Man Lymphocytes # (Manual) Monocytes # (Manual) Eosinophils # (Manual) Nucleated RBC % Basophils # (Manual) PT INR APTT Heparin Anti-Xa Level ABG pH POC ABG pO2 ABG pO2 ABG HCO3 ABG O2 Saturation ABG Base Excess POC ABG pCO2 ABG Hemoglobin ABG Oxyhemoglobin ABG Sodium ABG Chloride ABG Glucose Oxyhemoglobin Sodium Potassium 5.6 H D Chloride Carbon Dioxide BUN 33 H Creatinine Glucose 131 H POC Glucose 142 H 134 H Lactic Acid Calcium Phosphorus Magnesium AST ALT Lactate Dehydrogenase Total Bilirubin Direct Bilirubin CK-MB (CK-2) C-Reactive Protein NT-Pro-B Natriuret Pep Total Protein Albumin Arterial Blood Glucose Urine WBC (Auto) Urine Creatinine Digoxin 12/31/19 12/31/19 12/31/19 11:30 17:19 17:36 WBC RBC Hgb Hct MCHC RDW MCV MCH Lymph % (Auto) [place] % (Auto) [place] # Eos # Lymph # (Auto) [place] # (Auto) Eos # (Auto) Seg Neutrophils % Seg Neuts % (Manual) Baso # (Auto) Lymphocytes % (Manual) Monocytes % (Manual) Eosinophils % (Manual) Basophils % (Manual) Seg Neutrophils # Seg Neutrophils # Man Lymphocytes # (Manual) Monocytes # (Manual) Eosinophils # (Manual) Nucleated RBC % Basophils # (Manual) PT INR APTT Heparin Anti-Xa Level ABG pH POC ABG pO2 ABG pO2 ABG HCO3 ABG O2 Saturation ABG Base Excess POC ABG pCO2 ABG Hemoglobin ABG Oxyhemoglobin ABG Sodium ABG Chloride ABG Glucose Oxyhemoglobin Sodium Potassium Chloride Carbon Dioxide BUN 35 H Creatinine Glucose 156 H POC Glucose 158 H 181 H Lactic Acid Calcium Phosphorus Magnesium AST ALT Lactate Dehydrogenase Total Bilirubin Direct Bilirubin CK-MB (CK-2) C-Reactive Protein NT-Pro-B Natriuret Pep Total Protein Albumin Arterial Blood Glucose Urine WBC (Auto) Urine Creatinine Digoxin 12/31/19 12/31/19 12/31/19 18:16 19:41 21:53 WBC RBC Hgb Hct MCHC RDW MCV MCH Lymph % (Auto) [place] % (Auto) [place] # Eos # Lymph # (Auto) [place] # (Auto) Eos # (Auto) Seg Neutrophils % Seg Neuts % (Manual) Baso # (Auto) Lymphocytes % (Manual) Monocytes % (Manual) Eosinophils % (Manual) Basophils % (Manual) Seg Neutrophils # Seg Neutrophils # Man Lymphocytes # (Manual) Monocytes # (Manual) Eosinophils # (Manual) Nucleated RBC % Basophils # (Manual) PT INR APTT Heparin Anti-Xa Level 0.20 L ABG pH POC ABG pO2 ABG pO2 ABG HCO3 ABG O2 Saturation ABG Base Excess POC ABG pCO2 ABG Hemoglobin ABG Oxyhemoglobin ABG Sodium ABG Chloride ABG Glucose Oxyhemoglobin Sodium Potassium Chloride Carbon Dioxide BUN 34 H Creatinine Glucose 169 H POC Glucose 141 H Lactic Acid Calcium Phosphorus Magnesium AST ALT Lactate Dehydrogenase Total Bilirubin Direct Bilirubin CK-MB (CK-2) C-Reactive Protein NT-Pro-B Natriuret Pep Total Protein Albumin Arterial Blood Glucose Urine WBC (Auto) Urine Creatinine Digoxin 12/31/19 01/01/20 01/01/20 23:51 05:17 10:40 WBC RBC Hgb Hct MCHC RDW MCV MCH Lymph % (Auto) [place] % (Auto) [place] # Eos # Lymph # (Auto) [place] # (Auto) Eos # (Auto) Seg Neutrophils % Seg Neuts % (Manual) Baso # (Auto) Lymphocytes % (Manual) Monocytes % (Manual) Eosinophils % (Manual) Basophils % (Manual) Seg Neutrophils # Seg Neutrophils # Man Lymphocytes # (Manual) Monocytes # (Manual) Eosinophils # (Manual) Nucleated RBC % Basophils # (Manual) PT INR APTT Heparin Anti-Xa Level ABG pH POC ABG pO2 ABG pO2 ABG HCO3 ABG O2 Saturation ABG Base Excess POC ABG pCO2 ABG Hemoglobin ABG Oxyhemoglobin ABG Sodium ABG Chloride ABG Glucose Oxyhemoglobin Sodium Potassium Chloride Carbon Dioxide BUN 31 H Creatinine 0.7 L Glucose 137 H POC Glucose 131 H 155 H Lactic Acid Calcium Phosphorus Magnesium AST 73 H ALT 97 H Lactate Dehydrogenase Total Bilirubin Direct Bilirubin CK-MB (CK-2) C-Reactive Protein NT-Pro-B Natriuret Pep 3866 H Total Protein Albumin 2.8 L Arterial Blood Glucose Urine WBC (Auto) Urine Creatinine Digoxin 01/01/20 01/01/20 01/01/20 12:26 15:33 17:53 WBC 14.3 H RBC 3.35 L Hgb 9.1 L Hct 28.8 L MCHC RDW 17.0 H MCV MCH 27 L Lymph % (Auto) 7.0 L [place] % (Auto) 7.6 H [place] # Eos # Lymph # (Auto) 1.0 L [place] # (Auto) 1.1 H Eos # (Auto) Seg Neutrophils % 83.3 H Seg Neuts % (Manual) Baso # (Auto) Lymphocytes % (Manual) Monocytes % (Manual) Eosinophils % (Manual) Basophils % (Manual) Seg Neutrophils # 12.0 H Seg Neutrophils # Man Lymphocytes # (Manual) Monocytes # (Manual) Eosinophils # (Manual) Nucleated RBC % Basophils # (Manual) PT INR APTT Heparin Anti-Xa Level ABG pH POC ABG pO2 ABG pO2 ABG HCO3 ABG O2 Saturation ABG Base Excess POC ABG pCO2 ABG Hemoglobin ABG Oxyhemoglobin ABG Sodium ABG Chloride ABG Glucose Oxyhemoglobin Sodium Potassium Chloride Carbon Dioxide BUN Creatinine Glucose POC Glucose 128 H 128 H Lactic Acid Calcium Phosphorus Magnesium AST ALT Lactate Dehydrogenase Total Bilirubin Direct Bilirubin CK-MB (CK-2) C-Reactive Protein NT-Pro-B Natriuret Pep Total Protein Albumin Arterial Blood Glucose Urine WBC (Auto) Urine Creatinine Digoxin 01/01/20 01/02/20 01/02/20 23:04 05:39 07:00 WBC RBC Hgb Hct MCHC RDW MCV MCH Lymph % (Auto) [place] % (Auto) [place] # Eos # Lymph # (Auto) [place] # (Auto) Eos # (Auto) Seg Neutrophils % Seg Neuts % (Manual) Baso # (Auto) Lymphocytes % (Manual) Monocytes % (Manual) Eosinophils % (Manual) Basophils % (Manual) Seg Neutrophils # Seg Neutrophils # Man Lymphocytes # (Manual) Monocytes # (Manual) Eosinophils # (Manual) Nucleated RBC % Basophils # (Manual) PT INR APTT Heparin Anti-Xa Level 0.13 L ABG pH POC ABG pO2 ABG pO2 ABG HCO3 ABG O2 Saturation ABG Base Excess POC ABG pCO2 ABG Hemoglobin ABG Oxyhemoglobin ABG Sodium ABG Chloride ABG Glucose Oxyhemoglobin Sodium Potassium Chloride Carbon Dioxide BUN Creatinine Glucose POC Glucose 120 H 169 H Lactic Acid Calcium Phosphorus Magnesium AST ALT Lactate Dehydrogenase Total Bilirubin Direct Bilirubin CK-MB (CK-2) C-Reactive Protein NT-Pro-B Natriuret Pep Total Protein Albumin Arterial Blood Glucose Urine WBC (Auto) Urine Creatinine Digoxin 01/02/20 01/02/20 01/02/20 12:15 14:06 17:58 WBC RBC Hgb Hct MCHC RDW MCV MCH Lymph % (Auto) [place] % (Auto) [place] # Eos # Lymph # (Auto) [place] # (Auto) Eos # (Auto) Seg Neutrophils % Seg Neuts % (Manual) Baso # (Auto) Lymphocytes % (Manual) Monocytes % (Manual) Eosinophils % (Manual) Basophils % (Manual) Seg Neutrophils # Seg Neutrophils # Man Lymphocytes # (Manual) Monocytes # (Manual) Eosinophils # (Manual) Nucleated RBC % Basophils # (Manual) PT INR APTT Heparin Anti-Xa Level < 0.10 L ABG pH POC ABG pO2 ABG pO2 ABG HCO3 ABG O2 Saturation ABG Base Excess POC ABG pCO2 ABG Hemoglobin ABG Oxyhemoglobin ABG Sodium ABG Chloride ABG Glucose Oxyhemoglobin Sodium Potassium Chloride Carbon Dioxide BUN Creatinine Glucose POC Glucose 190 H 198 H Lactic Acid Calcium Phosphorus Magnesium AST ALT Lactate Dehydrogenase Total Bilirubin Direct Bilirubin CK-MB (CK-2) C-Reactive Protein NT-Pro-B Natriuret Pep Total Protein Albumin Arterial Blood Glucose Urine WBC (Auto) Urine Creatinine Digoxin 01/02/20 01/02/20 01/03/20 21:43 23:33 05:42 WBC RBC Hgb Hct MCHC RDW MCV MCH Lymph % (Auto) [place] % (Auto) [place] # Eos # Lymph # (Auto) [place] # (Auto) Eos # (Auto) Seg Neutrophils % Seg Neuts % (Manual) Baso # (Auto) Lymphocytes % (Manual) Monocytes % (Manual) Eosinophils % (Manual) Basophils % (Manual) Seg Neutrophils # Seg Neutrophils # Man Lymphocytes # (Manual) Monocytes # (Manual) Eosinophils # (Manual) Nucleated RBC % Basophils # (Manual) PT INR APTT Heparin Anti-Xa Level 0.10 L ABG pH POC ABG pO2 ABG pO2 ABG HCO3 ABG O2 Saturation ABG Base Excess POC ABG pCO2 ABG Hemoglobin ABG Oxyhemoglobin ABG Sodium ABG Chloride ABG Glucose Oxyhemoglobin Sodium Potassium Chloride Carbon Dioxide BUN Creatinine Glucose POC Glucose 180 H 163 H Lactic Acid Calcium Phosphorus Magnesium AST ALT Lactate Dehydrogenase Total Bilirubin Direct Bilirubin CK-MB (CK-2) C-Reactive Protein NT-Pro-B Natriuret Pep Total Protein Albumin Arterial Blood Glucose Urine WBC (Auto) Urine Creatinine Digoxin 01/03/20 01/03/20 01/03/20 06:50 07:25 07:45 WBC 12.1 H RBC 3.35 L Hgb 9.0 L Hct 28.9 L MCHC 31 L RDW 16.6 H MCV MCH 27 L Lymph % (Auto) 13.0 L [place] % (Auto) 8.6 H [place] # Eos # Lymph # (Auto) [place] # (Auto) 1.0 H Eos # (Auto) Seg Neutrophils % 75.9 H Seg Neuts % (Manual) Baso # (Auto) Lymphocytes % (Manual) Monocytes % (Manual) Eosinophils % (Manual) Basophils % (Manual) Seg Neutrophils # 9.2 H Seg Neutrophils # Man Lymphocytes # (Manual) Monocytes # (Manual) Eosinophils # (Manual) Nucleated RBC % Basophils # (Manual) PT INR APTT Heparin Anti-Xa Level 0.29 L ABG pH POC ABG pO2 ABG pO2 ABG HCO3 ABG O2 Saturation ABG Base Excess POC ABG pCO2 ABG Hemoglobin ABG Oxyhemoglobin ABG Sodium ABG Chloride ABG Glucose Oxyhemoglobin Sodium Potassium 3.3 L D Chloride Carbon Dioxide 35 H D BUN 23 H Creatinine 0.6 L Glucose 149 H POC Glucose Lactic Acid Calcium Phosphorus Magnesium AST ALT 88 H Lactate Dehydrogenase Total Bilirubin Direct Bilirubin CK-MB (CK-2) C-Reactive Protein NT-Pro-B Natriuret Pep Total Protein 6.2 L Albumin 2.9 L Arterial Blood Glucose Urine WBC (Auto) Urine Creatinine Digoxin 01/03/20 01/03/20 01/03/20 12:05 17:42 18:30 WBC RBC Hgb Hct MCHC RDW MCV MCH Lymph % (Auto) [place] % (Auto) [place] # Eos # Lymph # (Auto) [place] # (Auto) Eos # (Auto) Seg Neutrophils % Seg Neuts % (Manual) Baso # (Auto) Lymphocytes % (Manual) Monocytes % (Manual) Eosinophils % (Manual) Basophils % (Manual) Seg Neutrophils # Seg Neutrophils # Man Lymphocytes # (Manual) Monocytes # (Manual) Eosinophils # (Manual) Nucleated RBC % Basophils # (Manual) PT INR APTT Heparin Anti-Xa Level ABG pH POC ABG pO2 ABG pO2 70.7 L ABG HCO3 36.1 H ABG O2 Saturation 94.4 L ABG Base Excess 10.0 H POC ABG pCO2 ABG Hemoglobin 9.7 L ABG Oxyhemoglobin ABG Sodium ABG Chloride ABG Glucose Oxyhemoglobin 91.8 L Sodium Potassium Chloride Carbon Dioxide BUN Creatinine Glucose POC Glucose 128 H 132 H Lactic Acid Calcium Phosphorus Magnesium AST ALT Lactate Dehydrogenase Total Bilirubin Direct Bilirubin CK-MB (CK-2) C-Reactive Protein NT-Pro-B Natriuret Pep Total Protein Albumin Arterial Blood Glucose Urine WBC (Auto) Urine Creatinine Digoxin 01/04/20 01/04/20 01/04/20 00:10 04:26 05:23 WBC RBC Hgb Hct MCHC RDW MCV MCH Lymph % (Auto) [place] % (Auto) [place] # Eos # Lymph # (Auto) [place] # (Auto) Eos # (Auto) Seg Neutrophils % Seg Neuts % (Manual) Baso # (Auto) Lymphocytes % (Manual) Monocytes % (Manual) Eosinophils % (Manual) Basophils % (Manual) Seg Neutrophils # Seg Neutrophils # Man Lymphocytes # (Manual) Monocytes # (Manual) Eosinophils # (Manual) Nucleated RBC % Basophils # (Manual) PT INR APTT Heparin Anti-Xa Level 0.16 L ABG pH POC ABG pO2 ABG pO2 ABG HCO3 ABG O2 Saturation ABG Base Excess POC ABG pCO2 ABG Hemoglobin ABG Oxyhemoglobin ABG Sodium ABG Chloride ABG Glucose Oxyhemoglobin Sodium Potassium Chloride Carbon Dioxide BUN Creatinine Glucose POC Glucose 121 H 119 H Lactic Acid Calcium Phosphorus Magnesium AST ALT Lactate Dehydrogenase Total Bilirubin Direct Bilirubin CK-MB (CK-2) C-Reactive Protein NT-Pro-B Natriuret Pep Total Protein Albumin Arterial Blood Glucose Urine WBC (Auto) Urine Creatinine Digoxin 01/04/20 01/04/20 01/04/20 09:50 09:50 12:18 WBC 15.4 H RBC 3.30 L Hgb 8.7 L Hct 28.2 L MCHC 31 L RDW 17.0 H MCV MCH 26 L Lymph % (Auto) [place] % (Auto) 7.6 H [place] # Eos # Lymph # (Auto) [place] # (Auto) 1.2 H Eos # (Auto) Seg Neutrophils % 75.4 H Seg Neuts % (Manual) Baso # (Auto) Lymphocytes % (Manual) Monocytes % (Manual) Eosinophils % (Manual) Basophils % (Manual) Seg Neutrophils # 11.6 H Seg Neutrophils # Man Lymphocytes # (Manual) Monocytes # (Manual) Eosinophils # (Manual) Nucleated RBC % Basophils # (Manual) PT INR APTT Heparin Anti-Xa Level ABG pH POC ABG pO2 ABG pO2 ABG HCO3 ABG O2 Saturation ABG Base Excess POC ABG pCO2 ABG Hemoglobin ABG Oxyhemoglobin ABG Sodium ABG Chloride ABG Glucose Oxyhemoglobin Sodium 148 H Potassium 3.5 L Chloride Carbon Dioxide 32 H BUN Creatinine 0.6 L Glucose 114 H POC Glucose 111 H Lactic Acid Calcium Phosphorus Magnesium AST ALT 59 H Lactate Dehydrogenase Total Bilirubin Direct Bilirubin CK-MB (CK-2) C-Reactive Protein NT-Pro-B Natriuret Pep Total Protein Albumin 2.6 L Arterial Blood Glucose Urine WBC (Auto) Urine Creatinine Digoxin 01/05/20 01/05/20 01/05/20 04:05 04:05 05:19 WBC 11.7 H RBC 3.50 L Hgb 9.3 L Hct 29.9 L MCHC 31 L RDW 16.6 H MCV MCH 27 L Lymph % (Auto) 13.1 L [place] % (Auto) 9.7 H [place] # Eos # Lymph # (Auto) [place] # (Auto) 1.1 H Eos # (Auto) Seg Neutrophils % 74.0 H Seg Neuts % (Manual) Baso # (Auto) Lymphocytes % (Manual) Monocytes % (Manual) Eosinophils % (Manual) Basophils % (Manual) Seg Neutrophils # 8.6 H Seg Neutrophils # Man Lymphocytes # (Manual) Monocytes # (Manual) Eosinophils # (Manual) Nucleated RBC % Basophils # (Manual) PT INR APTT Heparin Anti-Xa Level ABG pH POC ABG pO2 ABG pO2 ABG HCO3 ABG O2 Saturation ABG Base Excess POC ABG pCO2 ABG Hemoglobin ABG Oxyhemoglobin ABG Sodium ABG Chloride ABG Glucose Oxyhemoglobin Sodium 151 H Potassium Chloride Carbon Dioxide 34 H BUN Creatinine 0.7 L Glucose POC Glucose 112 H Lactic Acid Calcium Phosphorus Magnesium AST ALT 59 H Lactate Dehydrogenase Total Bilirubin Direct Bilirubin CK-MB (CK-2) C-Reactive Protein NT-Pro-B Natriuret Pep Total Protein 5.8 L Albumin 2.6 L Arterial Blood Glucose Urine WBC (Auto) Urine Creatinine Digoxin 01/05/20 01/06/20 01/06/20 16:04 00:23 04:44 WBC RBC 3.36 L Hgb 8.9 L Hct 28.7 L MCHC 31 L RDW 16.9 H MCV MCH 26 L Lymph % (Auto) [place] % (Auto) 9.4 H [place] # Eos # Lymph # (Auto) [place] # (Auto) Eos # (Auto) Seg Neutrophils % Seg Neuts % (Manual) Baso # (Auto) Lymphocytes % (Manual) Monocytes % (Manual) Eosinophils % (Manual) Basophils % (Manual) Seg Neutrophils # Seg Neutrophils # Man Lymphocytes # (Manual) Monocytes # (Manual) Eosinophils # (Manual) Nucleated RBC % Basophils # (Manual) PT INR APTT Heparin Anti-Xa Level ABG pH POC ABG pO2 ABG pO2 ABG HCO3 ABG O2 Saturation ABG Base Excess POC ABG pCO2 ABG Hemoglobin ABG Oxyhemoglobin ABG Sodium ABG Chloride ABG Glucose Oxyhemoglobin Sodium 151 H Potassium 3.2 L Chloride Carbon Dioxide 34 H BUN Creatinine 0.6 L Glucose POC Glucose 107 H Lactic Acid Calcium Phosphorus Magnesium AST ALT Lactate Dehydrogenase Total Bilirubin Direct Bilirubin CK-MB (CK-2) C-Reactive Protein NT-Pro-B Natriuret Pep Total Protein Albumin Arterial Blood Glucose Urine WBC (Auto) Urine Creatinine Digoxin 01/06/20 01/06/20 01/06/20 04:44 05:33 12:04 WBC RBC Hgb Hct MCHC RDW MCV MCH Lymph % (Auto) [place] % (Auto) [place] # Eos # Lymph # (Auto) [place] # (Auto) Eos # (Auto) Seg Neutrophils % Seg Neuts % (Manual) Baso # (Auto) Lymphocytes % (Manual) Monocytes % (Manual) Eosinophils % (Manual) Basophils % (Manual) Seg Neutrophils # Seg Neutrophils # Man Lymphocytes # (Manual) Monocytes # (Manual) Eosinophils # (Manual) Nucleated RBC % Basophils # (Manual) PT INR APTT Heparin Anti-Xa Level ABG pH POC ABG pO2 ABG pO2 ABG HCO3 ABG O2 Saturation ABG Base Excess POC ABG pCO2 ABG Hemoglobin ABG Oxyhemoglobin ABG Sodium ABG Chloride ABG Glucose Oxyhemoglobin Sodium 151 H Potassium 3.4 L Chloride Carbon Dioxide 33 H BUN Creatinine 0.6 L Glucose 118 H POC Glucose 118 H 123 H Lactic Acid Calcium Phosphorus Magnesium AST ALT Lactate Dehydrogenase Total Bilirubin Direct Bilirubin CK-MB (CK-2) C-Reactive Protein NT-Pro-B Natriuret Pep Total Protein 6.2 L Albumin 2.6 L Arterial Blood Glucose Urine WBC (Auto) Urine Creatinine Digoxin 01/06/20 01/07/20 01/07/20 17:54 00:06 04:10 WBC RBC 3.42 L Hgb 8.9 L Hct 29.0 L MCHC 31 L RDW 17.1 H MCV MCH 26 L Lymph % (Auto) [place] % (Auto) 8.4 H [place] # Eos # Lymph # (Auto) [place] # (Auto) Eos # (Auto) Seg Neutrophils % Seg Neuts % (Manual) Baso # (Auto) Lymphocytes % (Manual) Monocytes % (Manual) Eosinophils % (Manual) Basophils % (Manual) Seg Neutrophils # Seg Neutrophils # Man Lymphocytes # (Manual) Monocytes # (Manual) Eosinophils # (Manual) Nucleated RBC % Basophils # (Manual) PT INR APTT Heparin Anti-Xa Level ABG pH POC ABG pO2 ABG pO2 ABG HCO3 ABG O2 Saturation ABG Base Excess POC ABG pCO2 ABG Hemoglobin ABG Oxyhemoglobin ABG Sodium ABG Chloride ABG Glucose Oxyhemoglobin Sodium Potassium Chloride Carbon Dioxide BUN Creatinine Glucose POC Glucose 112 H 126 H Lactic Acid Calcium Phosphorus Magnesium AST ALT Lactate Dehydrogenase Total Bilirubin Direct Bilirubin CK-MB (CK-2) C-Reactive Protein NT-Pro-B Natriuret Pep Total Protein Albumin Arterial Blood Glucose Urine WBC (Auto) Urine Creatinine Digoxin 01/07/20 01/07/20 01/07/20 04:10 05:59 12:27 WBC RBC Hgb Hct MCHC RDW MCV MCH Lymph % (Auto) [place] % (Auto) [place] # Eos # Lymph # (Auto) [place] # (Auto) Eos # (Auto) Seg Neutrophils % Seg Neuts % (Manual) Baso # (Auto) Lymphocytes % (Manual) Monocytes % (Manual) Eosinophils % (Manual) Basophils % (Manual) Seg Neutrophils # Seg Neutrophils # Man Lymphocytes # (Manual) Monocytes # (Manual) Eosinophils # (Manual) Nucleated RBC % Basophils # (Manual) PT INR APTT Heparin Anti-Xa Level ABG pH POC ABG pO2 ABG pO2 ABG HCO3 ABG O2 Saturation ABG Base Excess POC ABG pCO2 ABG Hemoglobin ABG Oxyhemoglobin ABG Sodium ABG Chloride ABG Glucose Oxyhemoglobin Sodium 153 H Potassium 3.5 L Chlor[place] Carbon Dioxide 34 H BUN Creatinine 0.6 L Glucose 121 H POC Glucose 121 H 126 H Lactic Acid Calcium Phosphorus Magnesium AST ALT Lactate Dehydrogenase Total Bilirubin Direct Bilirubin CK-MB (CK-2) C-Reactive Protein NT-Pro-B Natriuret Pep Total Protein 5.9 L Albumin 2.4 L Arterial Blood Glucose Urine WBC (Auto) Urine Creatinine Digoxin 01/07/20 01/08/20 01/08/20 18:12 00:03 05:41 WBC RBC Hgb Hct MCHC RDW MCV MCH Lymph % (Auto) [place] % (Auto) [place] # Eos # Lymph # (Auto) [place] # (Auto) Eos # (Auto) Seg Neutrophils % Seg Neuts % (Manual) Baso # (Auto) Lymphocytes % (Manual) Monocytes % (Manual) Eosinophils % (Manual) Basophils % (Manual) Seg Neutrophils # Seg Neutrophils # Man Lymphocytes # (Manual) Monocytes # (Manual) Eosinophils # (Manual) Nucleated RBC % Basophils # (Manual) PT INR APTT Heparin Anti-Xa Level ABG pH POC ABG pO2 ABG pO2 ABG HCO3 ABG O2 Saturation ABG Base Excess POC ABG pCO2 ABG Hemoglobin ABG Oxyhemoglobin ABG Sodium ABG Chloride ABG Glucose Oxyhemoglobin Sodium Potassium Chloride Carbon Dioxide BUN Creatinine Glucose POC Glucose 124 H 130 H 138 H Lactic Acid Calcium Phosphorus Magnesium AST ALT Lactate Dehydrogenase Total Bilirubin Direct Bilirubin CK-MB (CK-2) C-Reactive Protein NT-Pro-B Natriuret Pep Total Protein Albumin Arterial Blood Glucose Urine WBC (Auto) Urine Creatinine Digoxin 01/08/20 01/08/20 01/08/20 09:28 11:42 18:21 WBC RBC Hgb Hct MCHC RDW MCV MCH Lymph % (Auto) [place] % (Auto) [place] # Eos # Lymph # (Auto) [place] # (Auto) Eos # (Auto) Seg Neutrophils % Seg Neuts % (Manual) Baso # (Auto) Lymphocytes % (Manual) Monocytes % (Manual) Eosinophils % (Manual) Basophils % (Manual) Seg Neutrophils # Seg Neutrophils # Man Lymphocytes # (Manual) Monocytes # (Manual) Eosinophils # (Manual) Nucleated RBC % Basophils # (Manual) PT INR APTT Heparin Anti-Xa Level ABG pH POC ABG pO2 ABG pO2 ABG HCO3 ABG O2 Saturation ABG Base Excess POC ABG pCO2 ABG Hemoglobin ABG Oxyhemoglobin ABG Sodium ABG Chloride ABG Glucose Oxyhemoglobin Sodium Potassium Chloride Carbon Dioxide BUN Creatinine Glucose POC Glucose 181 H 150 H 129 H Lactic Acid Calcium Phosphorus Magnesium AST ALT Lactate Dehydrogenase Total Bilirubin Direct Bilirubin CK-MB (CK-2) C-Reactive Protein NT-Pro-B Natriuret Pep Total Protein Albumin Arterial Blood Glucose Urine WBC (Auto) Urine Creatinine Digoxin 01/08/20 01/08/20 01/09/20 19:25 23:55 04:11 WBC RBC 3.43 L Hgb 8.9 L Hct 28.7 L MCHC 31 L RDW 17.6 H MCV MCH 26 L Lymph % (Auto) [place] % (Auto) 8.6 H [place] # Eos # Lymph # (Auto) [place] # (Auto) Eos # (Auto) Seg Neutrophils % Seg Neuts % (Manual) Baso # (Auto) Lymphocytes % (Manual) Monocytes % (Manual) Eosinophils % (Manual) Basophils % (Manual) Seg Neutrophils # Seg Neutrophils # Man Lymphocytes # (Manual) Monocytes # (Manual) Eosinophils # (Manual) Nucleated RBC % Basophils # (Manual) PT INR APTT Heparin Anti-Xa Level ABG pH POC ABG pO2 ABG pO2 ABG HCO3 ABG O2 Saturation ABG Base Excess POC ABG pCO2 ABG Hemoglobin ABG Oxyhemoglobin ABG Sodium ABG Chloride ABG Glucose Oxyhemoglobin Sodium Potassium Chloride Carbon Dioxide BUN Creatinine 0.7 L Glucose 117 H POC Glucose 132 H Lactic Acid Calcium Phosphorus Magnesium AST ALT Lactate Dehydrogenase Total Bilirubin Direct Bilirubin CK-MB (CK-2) C-Reactive Protein NT-Pro-B Natriuret Pep Total Protein Albumin Arterial Blood Glucose Urine WBC (Auto) Urine Creatinine Digoxin 01/09/20 01/09/20 01/09/20 04:11 05:38 22:58 WBC RBC Hgb Hct MCHC RDW MCV MCH Lymph % (Auto) [place] % (Auto) [place] # Eos # Lymph # (Auto) [place] # (Auto) Eos # (Auto) Seg Neutrophils % Seg Neuts % (Manual) Baso # (Auto) Lymphocytes % (Manual) Monocytes % (Manual) Eosinophils % (Manual) Basophils % (Manual) Seg Neutrophils # Seg Neutrophils # Man Lymphocytes # (Manual) Monocytes # (Manual) Eosinophils # (Manual) Nucleated RBC % Basophils # (Manual) PT INR APTT Heparin Anti-Xa Level ABG pH POC ABG pO2 ABG pO2 ABG HCO3 ABG O2 Saturation ABG Base Excess POC ABG pCO2 ABG Hemoglobin ABG Oxyhemoglobin ABG Sodium ABG Chloride ABG Glucose Oxyhemoglobin Sodium 147 H Potassium 3.3 L D Chloride Carbon Dioxide 32 H BUN Creatinine 0.6 L Glucose 106 H POC Glucose 107 H 113 H Lactic Acid Calcium Phosphorus Magnesium AST ALT Lactate Dehydrogenase Total Bilirubin Direct Bilirubin CK-MB (CK-2) C-Reactive Protein NT-Pro-B Natriuret Pep Total Protein Albumin Arterial Blood Glucose Urine WBC (Auto) Urine Creatinine Digoxin 01/10/20 01/10/20 01/10/20 04:05 11:36 17:54 WBC RBC Hgb Hct MCHC RDW MCV MCH Lymph % (Auto) [place] % (Auto) [place] # Eos # Lymph # (Auto) [place] # (Auto) Eos # (Auto) Seg Neutrophils % Seg Neuts % (Manual) Baso # (Auto) Lymphocytes % (Manual) Monocytes % (Manual) Eosinophils % (Manual) Basophils % (Manual) Seg Neutrophils # Seg Neutrophils # Man Lymphocytes # (Manual) Monocytes # (Manual) Eosinophils # (Manual) Nucleated RBC % Basophils # (Manual) PT INR APTT Heparin Anti-Xa Level ABG pH POC ABG pO2 ABG pO2 ABG HCO3 ABG O2 Saturation ABG Base Excess POC ABG pCO2 ABG Hemoglobin ABG Oxyhemoglobin ABG Sodium ABG Chloride ABG Glucose Oxyhemoglobin Sodium Potassium Chloride Carbon Dioxide BUN Creatinine 0.7 L Glucose 110 H POC Glucose 129 H 117 H Lactic Acid Calcium Phosphorus Magnesium AST ALT Lactate Dehydrogenase Total Bilirubin Direct Bilirubin CK-MB (CK-2) C-Reactive Protein NT-Pro-B Natriuret Pep Total Protein Albumin Arterial Blood Glucose Urine WBC (Auto) Urine Creatinine Digoxin 01/10/20 01/11/20 01/11/20 23:52 03:19 12:09 WBC RBC Hgb Hct MCHC RDW MCV MCH Lymph % (Auto) [place] % (Auto) [place] # Eos # Lymph # (Auto) [place] # (Auto) Eos # (Auto) Seg Neutrophils % Seg Neuts % (Manual) Baso # (Auto) Lymphocytes % (Manual) Monocytes % (Manual) Eosinophils % (Manual) Basophils % (Manual) Seg Neutrophils # Seg Neutrophils # Man Lymphocytes # (Manual) Monocytes # (Manual) Eosinophils # (Manual) Nucleated RBC % Basophils # (Manual) PT INR APTT Heparin Anti-Xa Level ABG pH POC ABG pO2 ABG pO2 ABG HCO3 ABG O2 Saturation ABG Base Excess POC ABG pCO2 ABG Hemoglobin ABG Oxyhemoglobin ABG Sodium ABG Chloride ABG Glucose Oxyhemoglobin Sodium Potassium Chloride Carbon Dioxide BUN Creatinine Glucose POC Glucose 117 H 136 H 115 H Lactic Acid Calcium Phosphorus Magnesium AST ALT Lactate Dehydrogenase Total Bilirubin Direct Bilirubin CK-MB (CK-2) C-Reactive Protein NT-Pro-B Natriuret Pep Total Protein Albumin Arterial Blood Glucose Urine WBC (Auto) Urine Creatinine Digoxin 01/11/20 01/11/20 01/12/20 18:27 23:28 00:23 WBC RBC Hgb 9.8 L Hct 31.6 L MCHC 31 L RDW 17.8 H MCV 83 L MCH 26 L Lymph % (Auto) [place] % (Auto) 8.0 H [place] # Eos # Lymph # (Auto) [place] # (Auto) Eos # (Auto) Seg Neutrophils % Seg Neuts % (Manual) Baso # (Auto) Lymphocytes % (Manual) Monocytes % (Manual) Eosinophils % (Manual) Basophils % (Manual) Seg Neutrophils # Seg Neutrophils # Man Lymphocytes # (Manual) Monocytes # (Manual) Eosinophils # (Manual) Nucleated RBC % Basophils # (Manual) PT INR APTT Heparin Anti-Xa Level ABG pH POC ABG pO2 ABG pO2 ABG HCO3 ABG O2 Saturation ABG Base Excess POC ABG pCO2 ABG Hemoglobin ABG Oxyhemoglobin ABG Sodium ABG Chloride ABG Glucose Oxyhemoglobin Sodium Potassium Chloride Carbon Dioxide BUN Creatinine Glucose POC Glucose 118 H 122 H Lactic Acid Calcium Phosphorus Magnesium AST ALT Lactate Dehydrogenase Total Bilirubin Direct Bilirubin CK-MB (CK-2) C-Reactive Protein NT-Pro-B Natriuret Pep Total Protein Albumin Arterial Blood Glucose Urine WBC (Auto) Urine Creatinine Digoxin 01/12/20 01/12/20 01/12/20 00:23 04:18 04:18 WBC RBC Hgb 9.6 L Hct 30.9 L MCHC 31 L RDW 17.3 H MCV 81 L MCH 25 L Lymph % (Auto) [place] % (Auto) [place] # Eos # Lymph # (Auto) [place] # (Auto) Eos # (Auto) Seg Neutrophils % Seg Neuts % (Manual) Baso # (Auto) Lymphocytes % (Manual) Monocytes % (Manual) Eosinophils % (Manual) Basophils % (Manual) Seg Neutrophils # Seg Neutrophils # Man Lymphocytes # (Manual) Monocytes # (Manual) Eosinophils # (Manual) Nucleated RBC % Basophils # (Manual) PT INR APTT Heparin Anti-Xa Level ABG pH POC ABG pO2 ABG pO2 ABG HCO3 ABG O2 Saturation ABG Base Excess POC ABG pCO2 ABG Hemoglobin ABG Oxyhemoglobin ABG Sodium ABG Chloride ABG Glucose Oxyhemoglobin Sodium Potassium Chloride Carbon Dioxide BUN Creatinine 0.7 L 0.7 L Glucose 111 H 108 H POC Glucose Lactic Acid Calcium Phosphorus Magnesium AST ALT Lactate Dehydrogenase Total Bilirubin Direct Bilirubin CK-MB (CK-2) C-Reactive Protein NT-Pro-B Natriuret Pep Total Protein Albumin 2.6 L Arterial Blood Glucose Urine WBC (Auto) Urine Creatinine Digoxin 01/12/20 01/12/20 01/12/20 06:03 12:27 13:58 WBC RBC Hgb Hct MCHC RDW MCV MCH Lymph % (Auto) [place] % (Auto) [place] # Eos # Lymph # (Auto) [place] # (Auto) Eos # (Auto) Seg Neutrophils % Seg Neuts % (Manual) Baso # (Auto) Lymphocytes % (Manual) Monocytes % (Manual) Eosinophils % (Manual) Basophils % (Manual) Seg Neutrophils # Seg Neutrophils # Man Lymphocytes # (Manual) Monocytes # (Manual) Eosinophils # (Manual) Nucleated RBC % Basophils # (Manual) PT INR APTT Heparin Anti-Xa Level ABG pH 7.453 H POC ABG pO2 76.6 L ABG pO2 ABG HCO3 ABG O2 Saturation ABG Base Excess POC ABG pCO2 ABG Hemoglobin 10.3 L ABG Oxyhemoglobin ABG Sodium ABG Chloride ABG Glucose 99 H Oxyhemoglobin Sodium Potassium Chloride Carbon Dioxide BUN Creatinine Glucose POC Glucose 128 H 121 H Lactic Acid Calcium Phosphorus Magnesium AST ALT Lactate Dehydrogenase Total Bilirubin Direct Bilirubin CK-MB (CK-2) C-Reactive Protein NT-Pro-B Natriuret Pep Total Protein Albumin Arterial Blood Glucose 99 H Urine WBC (Auto) Urine Creatinine Digoxin 01/12/20 01/13/20 01/13/20 18:24 12:01 17:46 WBC RBC Hgb Hct MCHC RDW MCV MCH Lymph % (Auto) [place] % (Auto) [place] # Eos # Lymph # (Auto) [place] # (Auto) Eos # (Auto) Seg Neutrophils % Seg Neuts % (Manual) Baso # (Auto) Lymphocytes % (Manual) Monocytes % (Manual) Eosinophils % (Manual) Basophils % (Manual) Seg Neutrophils # Seg Neutrophils # Man Lymphocytes # (Manual) Monocytes # (Manual) Eosinophils # (Manual) Nucleated RBC % Basophils # (Manual) PT INR APTT Heparin Anti-Xa Level ABG pH POC ABG pO2 ABG pO2 ABG HCO3 ABG O2 Saturation ABG Base Excess POC ABG pCO2 ABG Hemoglobin ABG Oxyhemoglobin ABG Sodium ABG Chloride ABG Glucose Oxyhemoglobin Sodium Potassium Chloride Carbon Dioxide BUN Creatinine Glucose POC Glucose 119 H 107 H 124 H Lactic Acid Calcium Phosphorus Magnesium AST ALT Lactate Dehydrogenase Total Bilirubin Direct Bilirubin CK-MB (CK-2) C-Reactive Protein NT-Pro-B Natriuret Pep Total Protein Albumin Arterial Blood Glucose Urine WBC (Auto) Urine Creatinine Digoxin 01/13/20 01/14/20 01/14/20 20:40 00:10 05:33 WBC RBC Hgb Hct MCHC RDW MCV MCH Lymph % (Auto) [place] % (Auto) [place] # Eos # Lymph # (Auto) [place] # (Auto) Eos # (Auto) Seg Neutrophils % Seg Neuts % (Manual) Baso # (Auto) Lymphocytes % (Manual) Monocytes % (Manual) Eosinophils % (Manual) Basophils % (Manual) Seg Neutrophils # Seg Neutrophils # Man Lymphocytes # (Manual) Monocytes # (Manual) Eosinophils # (Manual) Nucleated RBC % Basophils # (Manual) PT INR APTT Heparin Anti-Xa Level ABG pH POC ABG pO2 ABG pO2 65.3 L ABG HCO3 31.8 H ABG O2 Saturation 93.5 L ABG Base Excess 6.7 H POC ABG pCO2 ABG Hemoglobin 13.3 L ABG Oxyhemoglobin ABG Sodium ABG Chloride ABG Glucose Oxyhemoglobin 90.9 L Sodium Potassium Chloride Carbon Dioxide BUN Creatinine Glucose POC Glucose 111 H 111 H Lactic Acid Calcium Phosphorus Magnesium AST ALT Lactate Dehydrogenase Total Bilirubin Direct Bilirubin CK-MB (CK-2) C-Reactive Protein NT-Pro-B Natriuret Pep Total Protein Albumin Arterial Blood Glucose Urine WBC (Auto) Urine Creatinine Digoxin 01/14/20 01/14/20 01/14/20 12:10 16:14 16:14 WBC RBC Hgb 10.6 L Hct 34.2 L MCHC 31 L RDW 18.3 H MCV 83 L MCH 26 L Lymph % (Auto) [place] % (Auto) 7.4 H [place] # Eos # Lymph # (Auto) [place] # (Auto) Eos # (Auto) Seg Neutrophils % 71.9 H Seg Neuts % (Manual) Baso # (Auto) Lymphocytes % (Manual) Monocytes % (Manual) Eosinophils % (Manual) Basophils % (Manual) Seg Neutrophils # Seg Neutrophils # Man Lymphocytes # (Manual) Monocytes # (Manual) Eosinophils # (Manual) Nucleated RBC % Basophils # (Manual) PT INR APTT Heparin Anti-Xa Level ABG pH POC ABG pO2 ABG pO2 ABG HCO3 ABG O2 Saturation ABG Base Excess POC ABG pCO2 ABG Hemoglobin ABG Oxyhemoglobin ABG Sodium ABG Chloride ABG Glucose Oxyhemoglobin Sodium Potassium Chloride Carbon Dioxide 31 H BUN Creatinine 0.6 L Glucose 131 H POC Glucose 139 H Lactic Acid Calcium Phosphorus Magnesium AST ALT Lactate Dehydrogenase Total Bilirubin Direct Bilirubin CK-MB (CK-2) C-Reactive Protein NT-Pro-B Natriuret Pep Total Protein Albumin Arterial Blood Glucose Urine WBC (Auto) Urine Creatinine Digoxin 01/14/20 01/15/20 01/15/20 18:05 00:52 05:35 WBC RBC Hgb Hct MCHC RDW MCV MCH Lymph % (Auto) [place] % (Auto) [place] # Eos # Lymph # (Auto) [place] # (Auto) Eos # (Auto) Seg Neutrophils % Seg Neuts % (Manual) Baso # (Auto) Lymphocytes % (Manual) Monocytes % (Manual) Eosinophils % (Manual) Basophils % (Manual) Seg Neutrophils # Seg Neutrophils # Man Lymphocytes # (Manual) Monocytes # (Manual) Eosinophils # (Manual) Nucleated RBC % Basophils # (Manual) PT INR APTT Heparin Anti-Xa Level ABG pH POC ABG pO2 ABG pO2 ABG HCO3 ABG O2 Saturation ABG Base Excess POC ABG pCO2 ABG Hemoglobin ABG Oxyhemoglobin ABG Sodium ABG Chloride ABG Glucose Oxyhemoglobin Sodium Potassium Chloride Carbon Dioxide BUN Creatinine Glucose POC Glucose 147 H 140 H 159 H Lactic Acid Calcium Phosphorus Magnesium AST ALT Lactate Dehydrogenase Total Bilirubin Direct Bilirubin CK-MB (CK-2) C-Reactive Protein NT-Pro-B Natriuret Pep Total Protein Albumin Arterial Blood Glucose Urine WBC (Auto) Urine Creatinine Digoxin 01/15/20 01/15/20 01/16/20 12:52 17:43 00:32 WBC RBC Hgb Hct MCHC RDW MCV MCH Lymph % (Auto) [place] % (Auto) [place] # Eos # Lymph # (Auto) [place] # (Auto) Eos # (Auto) Seg Neutrophils % Seg Neuts % (Manual) Baso # (Auto) Lymphocytes % (Manual) Monocytes % (Manual) Eosinophils % (Manual) Basophils % (Manual) Seg Neutrophils # Seg Neutrophils # Man Lymphocytes # (Manual) Monocytes # (Manual) Eosinophils # (Manual) Nucleated RBC % Basophils # (Manual) PT INR APTT Heparin Anti-Xa Level ABG pH POC ABG pO2 ABG pO2 ABG HCO3 ABG O2 Saturation ABG Base Excess POC ABG pCO2 ABG Hemoglobin ABG Oxyhemoglobin ABG Sodium ABG Chloride ABG Glucose Oxyhemoglobin Sodium Potassium Chloride Carbon Dioxide BUN Creatinine Glucose POC Glucose 164 H 167 H 153 H Lactic Acid Calcium Phosphorus Magnesium AST ALT Lactate Dehydrogenase Total Bilirubin Direct Bilirubin CK-MB (CK-2) C-Reactive Protein NT-Pro-B Natriuret Pep Total Protein Albumin Arterial Blood Glucose Urine WBC (Auto) Urine Creatinine Digoxin 01/16/20 01/16/20 01/17/20 05:46 11:48 06:38 WBC RBC Hgb Hct MCHC RDW MCV MCH Lymph % (Auto) [place] % (Auto) [place] # Eos # Lymph # (Auto) [place] # (Auto) Eos # (Auto) Seg Neutrophils % Seg Neuts % (Manual) Baso # (Auto) Lymphocytes % (Manual) Monocytes % (Manual) Eosinophils % (Manual) Basophils % (Manual) Seg Neutrophils # Seg Neutrophils # Man Lymphocytes # (Manual) Monocytes # (Manual) Eosinophils # (Manual) Nucleated RBC % Basophils # (Manual) PT INR APTT Heparin Anti-Xa Level ABG pH POC ABG pO2 ABG pO2 ABG HCO3 ABG O2 Saturation ABG Base Excess POC ABG pCO2 ABG Hemoglobin ABG Oxyhemoglobin ABG Sodium ABG Chloride ABG Glucose Oxyhemoglobin Sodium Potassium Chloride Carbon Dioxide BUN Creatinine Glucose POC Glucose 163 H 155 H 116 H Lactic Acid Calcium Phosphorus Magnesium AST ALT Lactate Dehydrogenase Total Bilirubin Direct Bilirubin CK-MB (CK-2) C-Reactive Protein NT-Pro-B Natriuret Pep Total Protein Albumin Arterial Blood Glucose Urine WBC (Auto) Urine Creatinine Digoxin 01/17/20 01/17/20 01/18/20 11:36 17:43 00:12 WBC RBC Hgb Hct MCHC RDW MCV MCH Lymph % (Auto) [place] % (Auto) [place] # Eos # Lymph # (Auto) [place] # (Auto) Eos # (Auto) Seg Neutrophils % Seg Neuts % (Manual) Baso # (Auto) Lymphocytes % (Manual) Monocytes % (Manual) Eosinophils % (Manual) Basophils % (Manual) Seg Neutrophils # Seg Neutrophils # Man Lymphocytes # (Manual) Monocytes # (Manual) Eosinophils # (Manual) Nucleated RBC % Basophils # (Manual) PT INR APTT Heparin Anti-Xa Level ABG pH POC ABG pO2 ABG pO2 ABG HCO3 ABG O2 Saturation ABG Base Excess POC ABG pCO2 ABG Hemoglobin ABG Oxyhemoglobin ABG Sodium ABG Chloride ABG Glucose Oxyhemoglobin Sodium Potassium Chloride Carbon Dioxide BUN Creatinine Glucose POC Glucose 110 H 134 H 108 H Lactic Acid Calcium Phosphorus Magnesium AST ALT Lactate Dehydrogenase Total Bilirubin Direct Bilirubin CK-MB (CK-2) C-Reactive Protein NT-Pro-B Natriuret Pep Total Protein Albumin Arterial Blood Glucose Urine WBC (Auto) Urine Creatinine Digoxin 01/18/20 01/18/20 01/18/20 05:37 06:46 06:46 WBC RBC Hgb 10.1 L Hct 32.2 L MCHC 31 L RDW 18.1 H MCV 81 L MCH 25 L Lymph % (Auto) [place] % (Auto) [place] # Eos # Lymph # (Auto) [place] # (Auto) Eos # (Auto) Seg Neutrophils % 71.9 H Seg Neuts % (Manual) Baso # (Auto) Lymphocytes % (Manual) Monocytes % (Manual) Eosinophils % (Manual) Basophils % (Manual) Seg Neutrophils # Seg Neutrophils # Man Lymphocytes # (Manual) Monocytes # (Manual) Eosinophils # (Manual) Nucleated RBC % Basophils # (Manual) PT INR APTT Heparin Anti-Xa Level ABG pH POC ABG pO2 ABG pO2 ABG HCO3 ABG O2 Saturation ABG Base Excess POC ABG pCO2 ABG Hemoglobin ABG Oxyhemoglobin ABG Sodium ABG Chloride ABG Glucose Oxyhemoglobin Sodium Potassium Chloride Carbon Dioxide BUN Creatinine 0.7 L Glucose 155 H POC Glucose 168 H Lactic Acid Calcium Phosphorus Magnesium AST ALT Lactate Dehydrogenase Total Bilirubin Direct Bilirubin CK-MB (CK-2) C-Reactive Protein NT-Pro-B Natriuret Pep Total Protein Albumin Arterial Blood Glucose Urine WBC (Auto) Urine Creatinine Digoxin 01/18/20 01/18/20 01/18/20 12:05 17:14 23:28 WBC RBC Hgb Hct MCHC RDW MCV MCH Lymph % (Auto) [place] % (Auto) [place] # Eos # Lymph # (Auto) [place] # (Auto) Eos # (Auto) Seg Neutrophils % Seg Neuts % (Manual) Baso # (Auto) Lymphocytes % (Manual) Monocytes % (Manual) Eosinophils % (Manual) Basophils % (Manual) Seg Neutrophils # Seg Neutrophils # Man Lymphocytes # (Manual) Monocytes # (Manual) Eosinophils # (Manual) Nucleated RBC % Basophils # (Manual) PT INR APTT Heparin Anti-Xa Level ABG pH POC ABG pO2 ABG pO2 ABG HCO3 ABG O2 Saturation ABG Base Excess POC ABG pCO2 ABG Hemoglobin ABG Oxyhemoglobin ABG Sodium ABG Chloride ABG Glucose Oxyhemoglobin Sodium Potassium Chloride Carbon Dioxide BUN Creatinine Glucose POC Glucose 128 H 126 H 128 H Lactic Acid Calcium Phosphorus Magnesium AST ALT Lactate Dehydrogenase Total Bilirubin Direct Bilirubin CK-MB (CK-2) C-Reactive Protein NT-Pro-B Natriuret Pep Total Protein Albumin Arterial Blood Glucose Urine WBC (Auto) Urine Creatinine Digoxin 01/19/20 01/19/20 01/19/20 05:39 12:33 17:36 WBC RBC Hgb Hct MCHC RDW MCV MCH Lymph % (Auto) [place] % (Auto) [place] # Eos # Lymph # (Auto) [place] # (Auto) Eos # (Auto) Seg Neutrophils % Seg Neuts % (Manual) Baso # (Auto) Lymphocytes % (Manual) Monocytes % (Manual) Eosinophils % (Manual) Basophils % (Manual) Seg Neutrophils # Seg Neutrophils # Man Lymphocytes # (Manual) Monocytes # (Manual) Eosinophils # (Manual) Nucleated RBC % Basophils # (Manual) PT INR APTT Heparin Anti-Xa Level ABG pH POC ABG pO2 ABG pO2 ABG HCO3 ABG O2 Saturation ABG Base Excess POC ABG pCO2 ABG Hemoglobin ABG Oxyhemoglobin ABG Sodium ABG Chloride ABG Glucose Oxyhemoglobin Sodium Potassium Chloride Carbon Dioxide BUN Creatinine Glucose POC Glucose 164 H 171 H 152 H Lactic Acid Calcium Phosphorus Magnesium AST ALT Lactate Dehydrogenase Total Bilirubin Direct Bilirubin CK-MB (CK-2) C-Reactive Protein NT-Pro-B Natriuret Pep Total Protein Albumin Arterial Blood Glucose Urine WBC (Auto) Urine Creatinine Digoxin 01/20/20 01/20/20 01/20/20 00:12 05:20 05:35 WBC RBC Hgb 9.2 L Hct 29.4 L MCHC 31 L RDW 17.9 H MCV 81 L MCH 25 L Lymph % (Auto) [place] % (Auto) [place] # Eos # Lymph # (Auto) [place] # (Auto) Eos # (Auto) Seg Neutrophils % Seg Neuts % (Manual) Baso # (Auto) Lymphocytes % (Manual) Monocytes % (Manual) Eosinophils % (Manual) Basophils % (Manual) Seg Neutrophils # Seg Neutrophils # Man Lymphocytes # (Manual) Monocytes # (Manual) Eosinophils # (Manual) Nucleated RBC % Basophils # (Manual) PT INR APTT Heparin Anti-Xa Level ABG pH POC ABG pO2 ABG pO2 ABG HCO3 ABG O2 Saturation ABG Base Excess POC ABG pCO2 ABG Hemoglobin ABG Oxyhemoglobin ABG Sodium ABG Chloride ABG Glucose Oxyhemoglobin Sodium Potassium Chloride Carbon Dioxide BUN Creatinine Glucose POC Glucose 120 H 136 H Lactic Acid Calcium Phosphorus Magnesium AST ALT Lactate Dehydrogenase Total Bilirubin Direct Bilirubin CK-MB (CK-2) C-Reactive Protein NT-Pro-B Natriuret Pep Total Protein Albumin Arterial Blood Glucose Urine WBC (Auto) Urine Creatinine Digoxin 01/20/20 01/20/20 01/20/20 05:40 11:58 14:55 WBC RBC Hgb 9.0 L Hct 28.3 L MCHC RDW MCV MCH Lymph % (Auto) [place] % (Auto) [place] # Eos # Lymph # (Auto) [place] # (Auto) Eos # (Auto) Seg Neutrophils % Seg Neuts % (Manual) Baso # (Auto) Lymphocytes % (Manual) Monocytes % (Manual) Eosinophils % (Manual) Basophils % (Manual) Seg Neutrophils # Seg Neutrophils # Man Lymphocytes # (Manual) Monocytes # (Manual) Eosinophils # (Manual) Nucleated RBC % Basophils # (Manual) PT INR APTT Heparin Anti-Xa Level ABG pH POC ABG pO2 ABG pO2 ABG HCO3 ABG O2 Saturation ABG Base Excess POC ABG pCO2 ABG Hemoglobin ABG Oxyhemoglobin ABG Sodium ABG Chloride ABG Glucose Oxyhemoglobin Sodium Potassium Chloride Carbon Dioxide 32 H BUN 22 H Creatinine 0.7 L Glucose 128 H POC Glucose 152 H Lactic Acid Calcium Phosphorus Magnesium AST ALT Lactate Dehydrogenase Total Bilirubin Direct Bilirubin CK-MB (CK-2) C-Reactive Protein NT-Pro-B Natriuret Pep Total Protein Albumin Arterial Blood Glucose Urine WBC (Auto) Urine Creatinine Digoxin 01/20/20 01/20/20 01/20/20 14:55 18:14 21:35 WBC RBC Hgb Hct MCHC RDW MCV MCH Lymph % (Auto) [place] % (Auto) [place] # Eos # Lymph # (Auto) [place] # (Auto) Eos # (Auto) Seg Neutrophils % Seg Neuts % (Manual) Baso # (Auto) Lymphocytes % (Manual) Monocytes % (Manual) Eosinophils % (Manual) Basophils % (Manual) Seg Neutrophils # Seg Neutrophils # Man Lymphocytes # (Manual) Monocytes # (Manual) Eosinophils # (Manual) Nucleated RBC % Basophils # (Manual) PT 20.4 H INR 1.72 H APTT 40.6 H Heparin Anti-Xa Level > 2.00 H ABG pH POC ABG pO2 ABG pO2 ABG HCO3 ABG O2 Saturation ABG Base Excess POC ABG pCO2 ABG Hemoglobin ABG Oxyhemoglobin ABG Sodium ABG Chloride ABG Glucose Oxyhemoglobin Sodium Potassium Chloride Carbon Dioxide BUN Creatinine Glucose POC Glucose 150 H Lactic Acid Calcium Phosphorus Magnesium AST ALT Lactate Dehydrogenase Total Bilirubin Direct Bilirubin CK-MB (CK-2) C-Reactive Protein NT-Pro-B Natriuret Pep Total Protein Albumin Arterial Blood Glucose Urine WBC (Auto) Urine Creatinine Digoxin 01/21/20 01/21/20 01/21/20 00:30 05:47 05:59 WBC RBC Hgb Hct MCHC RDW MCV MCH Lymph % (Auto) [place] % (Auto) [place] # Eos # Lymph # (Auto) [place] # (Auto) Eos # (Auto) Seg Neutrophils % Seg Neuts % (Manual) Baso # (Auto) Lymphocytes % (Manual) Monocytes % (Manual) Eosinophils % (Manual) Basophils % (Manual) Seg Neutrophils # Seg Neutrophils # Man Lymphocytes # (Manual) Monocytes # (Manual) Eosinophils # (Manual) Nucleated RBC % Basophils # (Manual) PT INR APTT Heparin Anti-Xa Level 1.93 H ABG pH POC ABG pO2 ABG pO2 ABG HCO3 ABG O2 Saturation ABG Base Excess POC ABG pCO2 ABG Hemoglobin ABG Oxyhemoglobin ABG Sodium ABG Chloride ABG Glucose Oxyhemoglobin Sodium Potassium Chloride Carbon Dioxide BUN Creatinine Glucose POC Glucose 126 H 148 H Lactic Acid Calcium Phosphorus Magnesium AST ALT Lactate Dehydrogenase Total Bilirubin Direct Bilirubin CK-MB (CK-2) C-Reactive Protein NT-Pro-B Natriuret Pep Total Protein Albumin Arterial Blood Glucose Urine WBC (Auto) Urine Creatinine Digoxin 01/21/20 01/21/20 01/21/20 12:32 18:20 23:54 WBC RBC Hgb Hct MCHC RDW MCV MCH Lymph % (Auto) [place] % (Auto) [place] # Eos # Lymph # (Auto) [place] # (Auto) Eos # (Auto) Seg Neutrophils % Seg Neuts % (Manual) Baso # (Auto) Lymphocytes % (Manual) Monocytes % (Manual) Eosinophils % (Manual) Basophils % (Manual) Seg Neutrophils # Seg Neutrophils # Man Lymphocytes # (Manual) Monocytes # (Manual) Eosinophils # (Manual) Nucleated RBC % Basophils # (Manual) PT INR APTT Heparin Anti-Xa Level 1.28 H ABG pH POC ABG pO2 ABG pO2 ABG HCO3 ABG O2 Saturation ABG Base Excess POC ABG pCO2 ABG Hemoglobin ABG Oxyhemoglobin ABG Sodium ABG Chloride ABG Glucose Oxyhemoglobin Sodium Potassium Chloride Carbon Dioxide BUN Creatinine Glucose POC Glucose 112 H 146 H Lactic Acid Calcium Phosphorus Magnesium AST ALT Lactate Dehydrogenase Total Bilirubin Direct Bilirubin CK-MB (CK-2) C-Reactive Protein NT-Pro-B Natriuret Pep Total Protein Albumin Arterial Blood Glucose Urine WBC (Auto) Urine Creatinine Digoxin 01/22/20 01/22/20 01/22/20 04:45 04:45 05:48 WBC RBC Hgb 9.3 L Hct 29.0 L MCHC RDW MCV MCH Lymph % (Auto) [place] % (Auto) [place] # Eos # Lymph # (Auto) [place] # (Auto) Eos # (Auto) Seg Neutrophils % Seg Neuts % (Manual) Baso # (Auto) Lymphocytes % (Manual) Monocytes % (Manual) Eosinophils % (Manual) Basophils % (Manual) Seg Neutrophils # Seg Neutrophils # Man Lymphocytes # (Manual) Monocytes # (Manual) Eosinophils # (Manual) Nucleated RBC % Basophils # (Manual) PT INR APTT Heparin Anti-Xa Level 1.34 H ABG pH POC ABG pO2 ABG pO2 ABG HCO3 ABG O2 Saturation ABG Base Excess POC ABG pCO2 ABG Hemoglobin ABG Oxyhemoglobin ABG Sodium ABG Chloride ABG Glucose Oxyhemoglobin Sodium Potassium Chloride Carbon Dioxide BUN Creatinine Glucose POC Glucose 142 H Lactic Acid Calcium Phosphorus Magnesium AST ALT Lactate Dehydrogenase Total Bilirubin Direct Bilirubin CK-MB (CK-2) C-Reactive Protein NT-Pro-B Natriuret Pep Total Protein Albumin Arterial Blood Glucose Urine WBC (Auto) Urine Creatinine Digoxin 01/22/20 01/22/20 01/22/20 08:09 08:22 09:58 WBC RBC Hgb Hct MCHC RDW MCV MCH Lymph % (Auto) [place] % (Auto) [place] # Eos # Lymph # (Auto) [place] # (Auto) Eos # (Auto) Seg Neutrophils % Seg Neuts % (Manual) Baso # (Auto) Lymphocytes % (Manual) Monocytes % (Manual) Eosinophils % (Manual) Basophils % (Manual) Seg Neutrophils # Seg Neutrophils # Man Lymphocytes # (Manual) Monocytes # (Manual) Eosinophils # (Manual) Nucleated RBC % Basophils # (Manual) PT 16.9 H INR 1.34 H APTT Heparin Anti-Xa Level ABG pH POC ABG pO2 ABG pO2 ABG HCO3 ABG O2 Saturation ABG Base Excess POC ABG pCO2 ABG Hemoglobin ABG Oxyhemoglobin ABG Sodium ABG Chloride ABG Glucose Oxyhemoglobin Sodium Potassium Chloride 97.8 L Carbon Dioxide BUN 29 H Creatinine Glucose 128 H POC Glucose 131 H Lactic Acid Calcium Phosphorus Magnesium AST ALT Lactate Dehydrogenase Total Bilirubin Direct Bilirubin CK-MB (CK-2) C-Reactive Protein NT-Pro-B Natriuret Pep Total Protein Albumin Arterial Blood Glucose Urine WBC (Auto) Urine Creatinine Digoxin 01/22/20 01/22/20 01/22/20 12:44 16:13 18:18 WBC RBC Hgb Hct MCHC RDW MCV MCH Lymph % (Auto) [place] % (Auto) [place] # Eos # Lymph # (Auto) [place] # (Auto) Eos # (Auto) Seg Neutrophils % Seg Neuts % (Manual) Baso # (Auto) Lymphocytes % (Manual) Monocytes % (Manual) Eosinophils % (Manual) Basophils % (Manual) Seg Neutrophils # Seg Neutrophils # Man Lymphocytes # (Manual) Monocytes # (Manual) Eosinophils # (Manual) Nucleated RBC % Basophils # (Manual) PT INR APTT Heparin Anti-Xa Level ABG pH POC ABG pO2 ABG pO2 ABG HCO3 ABG O2 Saturation ABG Base Excess POC ABG pCO2 ABG Hemoglobin ABG Oxyhemoglobin ABG Sodium ABG Chloride ABG Glucose Oxyhemoglobin Sodium Potassium Chloride Carbon Dioxide BUN Creatinine Glucose POC Glucose 156 H 133 H 155 H Lactic Acid Calcium Phosphorus Magnesium AST ALT Lactate Dehydrogenase Total Bilirubin Direct Bilirubin CK-MB (CK-2) C-Reactive Protein NT-Pro-B Natriuret Pep Total Protein Albumin Arterial Blood Glucose Urine WBC (Auto) Urine Creatinine Digoxin 01/22/20 01/23/20 01/23/20 23:22 05:37 12:59 WBC RBC Hgb Hct MCHC RDW MCV MCH Lymph % (Auto) [place] % (Auto) [place] # Eos # Lymph # (Auto) [place] # (Auto) Eos # (Auto) Seg Neutrophils % Seg Neuts % (Manual) Baso # (Auto) Lymphocytes % (Manual) Monocytes % (Manual) Eosinophils % (Manual) Basophils % (Manual) Seg Neutrophils # Seg Neutrophils # Man Lymphocytes # (Manual) Monocytes # (Manual) Eosinophils # (Manual) Nucleated RBC % Basophils # (Manual) PT INR APTT Heparin Anti-Xa Level ABG pH POC ABG pO2 ABG pO2 ABG HCO3 ABG O2 Saturation ABG Base Excess POC ABG pCO2 ABG Hemoglobin ABG Oxyhemoglobin ABG Sodium ABG Chloride ABG Glucose Oxyhemoglobin Sodium Potassium Chloride Carbon Dioxide BUN Creatinine Glucose POC Glucose 148 H 163 H 175 H Lactic Acid Calcium Phosphorus Magnesium AST ALT Lactate Dehydrogenase Total Bilirubin Direct Bilirubin CK-MB (CK-2) C-Reactive Protein NT-Pro-B Natriuret Pep Total Protein Albumin Arterial Blood Glucose Urine WBC (Auto) Urine Creatinine Digoxin 01/23/20 01/23/20 01/24/20 17:28 23:56 04:30 WBC RBC 3.46 L Hgb 8.8 L Hct 27.8 L MCHC RDW 18.2 H MCV 81 L MCH 25 L Lymph % (Auto) [place] % (Auto) 7.8 H [place] # Eos # Lymph # (Auto) [place] # (Auto) Eos # (Auto) Seg Neutrophils % Seg Neuts % (Manual) Baso # (Auto) Lymphocytes % (Manual) Monocytes % (Manual) Eosinophils % (Manual) Basophils % (Manual) Seg Neutrophils # Seg Neutrophils # Man Lymphocytes # (Manual) Monocytes # (Manual) Eosinophils # (Manual) Nucleated RBC % Basophils # (Manual) PT INR APTT Heparin Anti-Xa Level ABG pH POC ABG pO2 ABG pO2 ABG HCO3 ABG O2 Saturation ABG Base Excess POC ABG pCO2 ABG Hemoglobin ABG Oxyhemoglobin ABG Sodium ABG Chloride ABG Glucose Oxyhemoglobin Sodium Potassium Chloride Carbon Dioxide BUN Creatinine Glucose POC Glucose 165 H 177 H Lactic Acid Calcium Phosphorus Magnesium AST ALT Lactate Dehydrogenase Total Bilirubin Direct Bilirubin CK-MB (CK-2) C-Reactive Protein NT-Pro-B Natriuret Pep Total Protein Albumin Arterial Blood Glucose Urine WBC (Auto) Urine Creatinine Digoxin 01/24/20 01/24/20 01/24/20 04:30 07:18 12:06 WBC RBC Hgb Hct MCHC RDW MCV MCH Lymph % (Auto) [place] % (Auto) [place] # Eos # Lymph # (Auto) [place] # (Auto) Eos # (Auto) Seg Neutrophils % Seg Neuts % (Manual) Baso # (Auto) Lymphocytes % (Manual) Monocytes % (Manual) Eosinophils % (Manual) Basophils % (Manual) Seg Neutrophils # Seg Neutrophils # Man Lymphocytes # (Manual) Monocytes # (Manual) Eosinophils # (Manual) Nucleated RBC % Basophils # (Manual) PT INR APTT Heparin Anti-Xa Level ABG pH POC ABG pO2 ABG pO2 ABG HCO3 ABG O2 Saturation ABG Base Excess POC ABG pCO2 ABG Hemoglobin ABG Oxyhemoglobin ABG Sodium ABG Chloride ABG Glucose Oxyhemoglobin Sodium Potassium Chloride 97.9 L Carbon Dioxide BUN 31 H Creatinine Glucose 146 H POC Glucose 151 H 133 H Lactic Acid Calcium Phosphorus Magnesium AST ALT Lactate Dehydrogenase Total Bilirubin Direct Bilirubin CK-MB (CK-2) C-Reactive Protein NT-Pro-B Natriuret Pep Total Protein Albumin Arterial Blood Glucose Urine WBC (Auto) Urine Creatinine Digoxin 01/24/20 01/25/20 01/25/20 17:36 00:08 04:25 WBC RBC 3.50 L Hgb 8.7 L Hct 27.9 L MCHC 31 L RDW 18.2 H MCV 80 L MCH 25 L Lymph % (Auto) [place] % (Auto) 8.5 H [place] # Eos # Lymph # (Auto) [place] # (Auto) Eos # (Auto) Seg Neutrophils % Seg Neuts % (Manual) Baso # (Auto) Lymphocytes % (Manual) Monocytes % (Manual) Eosinophils % (Manual) Basophils % (Manual) Seg Neutrophils # Seg Neutrophils # Man Lymphocytes # (Manual) Monocytes # (Manual) Eosinophils # (Manual) Nucleated RBC % Basophils # (Manual) PT INR APTT Heparin Anti-Xa Level ABG pH POC ABG pO2 ABG pO2 ABG HCO3 ABG O2 Saturation ABG Base Excess POC ABG pCO2 ABG Hemoglobin ABG Oxyhemoglobin ABG Sodium ABG Chloride ABG Glucose Oxyhemoglobin Sodium Potassium Chloride Carbon Dioxide BUN Creatinine Glucose POC Glucose 133 H 129 H Lactic Acid Calcium Phosphorus Magnesium AST ALT Lactate Dehydrogenase Total Bilirubin Direct Bilirubin CK-MB (CK-2) C-Reactive Protein NT-Pro-B Natriuret Pep Total Protein Albumin Arterial Blood Glucose Urine WBC (Auto) Urine Creatinine Digoxin 01/25/20 01/25/20 01/25/20 04:25 05:38 11:52 WBC RBC Hgb Hct MCHC RDW MCV MCH Lymph % (Auto) [place] % (Auto) [place] # Eos # Lymph # (Auto) [place] # (Auto) Eos # (Auto) Seg Neutrophils % Seg Neuts % (Manual) Baso # (Auto) Lymphocytes % (Manual) Monocytes % (Manual) Eosinophils % (Manual) Basophils % (Manual) Seg Neutrophils # Seg Neutrophils # Man Lymphocytes # (Manual) Monocytes # (Manual) Eosinophils # (Manual) Nucleated RBC % Basophils # (Manual) PT INR APTT Heparin Anti-Xa Level ABG pH POC ABG pO2 ABG pO2 ABG HCO3 ABG O2 Saturation ABG Base Excess POC ABG pCO2 ABG Hemoglobin ABG Oxyhemoglobin ABG Sodium ABG Chloride ABG Glucose Oxyhemoglobin Sodium Potassium Chloride Carbon Dioxide BUN 30 H Creatinine Glucose 134 H POC Glucose 129 H 134 H Lactic Acid Calcium Phosphorus Magnesium AST ALT Lactate Dehydrogenase Total Bilirubin Direct Bilirubin CK-MB (CK-2) C-Reactive Protein NT-Pro-B Natriuret Pep Total Protein Albumin Arterial Blood Glucose Urine WBC (Auto) Urine Creatinine Digoxin 01/25/20 01/25/20 01/26/20 17:13 21:02 00:59 WBC RBC Hgb Hct MCHC RDW MCV MCH Lymph % (Auto) [place] % (Auto) [place] # Eos # Lymph # (Auto) [place] # (Auto) Eos # (Auto) Seg Neutrophils % Seg Neuts % (Manual) Baso # (Auto) Lymphocytes % (Manual) Monocytes % (Manual) Eosinophils % (Manual) Basophils % (Manual) Seg Neutrophils # Seg Neutrophils # Man Lymphocytes # (Manual) Monocytes # (Manual) Eosinophils # (Manual) Nucleated RBC % Basophils # (Manual) PT INR APTT Heparin Anti-Xa Level ABG pH POC ABG pO2 ABG pO2 57.5 L ABG HCO3 31.7 H ABG O2 Saturation 90.3 L ABG Base Excess 6.6 H POC ABG pCO2 ABG Hemoglobin 13.0 L ABG Oxyhemoglobin ABG Sodium ABG Chloride ABG Glucose Oxyhemoglobin 87.5 L Sodium Potassium Chloride Carbon Dioxide BUN Creatinine Glucose POC Glucose 124 H 196 H Lactic Acid Calcium Phosphorus Magnesium AST ALT Lactate Dehydrogenase Total Bilirubin Direct Bilirubin CK-MB (CK-2) C-Reactive Protein NT-Pro-B Natriuret Pep Total Protein Albumin Arterial Blood Glucose Urine WBC (Auto) Urine Creatinine Digoxin 01/26/20 01/26/20 01/26/20 03:20 05:46 12:46 WBC RBC Hgb 9.2 L Hct 29.4 L MCHC RDW MCV MCH Lymph % (Auto) [place] % (Auto) [place] # Eos # Lymph # (Auto) [place] # (Auto) Eos # (Auto) Seg Neutrophils % Seg Neuts % (Manual) Baso # (Auto) Lymphocytes % (Manual) Monocytes % (Manual) Eosinophils % (Manual) Basophils % (Manual) Seg Neutrophils # Seg Neutrophils # Man Lymphocytes # (Manual) Monocytes # (Manual) Eosinophils # (Manual) Nucleated RBC % Basophils # (Manual) PT INR APTT Heparin Anti-Xa Level ABG pH POC ABG pO2 ABG pO2 ABG HCO3 ABG O2 Saturation ABG Base Excess POC ABG pCO2 ABG Hemoglobin ABG Oxyhemoglobin ABG Sodium ABG Chloride ABG Glucose Oxyhemoglobin Sodium Potassium Chloride Carbon Dioxide BUN Creatinine Glucose POC Glucose 141 H 122 H Lactic Acid Calcium Phosphorus Magnesium AST ALT Lactate Dehydrogenase Total Bilirubin Direct Bilirubin CK-MB (CK-2) C-Reactive Protein NT-Pro-B Natriuret Pep Total Protein Albumin Arterial Blood Glucose Urine WBC (Auto) Urine Creatinine Digoxin 01/26/20 01/26/20 01/27/20 18:03 23:55 04:47 WBC RBC Hgb Hct MCHC RDW MCV MCH Lymph % (Auto) [place] % (Auto) [place] # Eos # Lymph # (Auto) [place] # (Auto) Eos # (Auto) Seg Neutrophils % Seg Neuts % (Manual) Baso # (Auto) Lymphocytes % (Manual) Monocytes % (Manual) Eosinophils % (Manual) Basophils % (Manual) Seg Neutrophils # Seg Neutrophils # Man Lymphocytes # (Manual) Monocytes # (Manual) Eosinophils # (Manual) Nucleated RBC % Basophils # (Manual) PT INR APTT Heparin Anti-Xa Level ABG pH POC ABG pO2 ABG pO2 ABG HCO3 ABG O2 Saturation ABG Base Excess POC ABG pCO2 ABG Hemoglobin ABG Oxyhemoglobin ABG Sodium ABG Chloride ABG Glucose Oxyhemoglobin Sodium Potassium Chloride Carbon Dioxide BUN 30 H Creatinine 0.7 L Glucose 135 H POC Glucose 142 H 159 H Lactic Acid Calcium Phosphorus Magnesium AST ALT Lactate Dehydrogenase Total Bilirubin Direct Bilirubin CK-MB (CK-2) C-Reactive Protein NT-Pro-B Natriuret Pep Total Protein Albumin Arterial Blood Glucose Urine WBC (Auto) Urine Creatinine Digoxin 01/27/20 01/27/20 01/27/20 05:43 12:06 17:16 WBC RBC Hgb Hct MCHC RDW MCV MCH Lymph % (Auto) [place] % (Auto) [place] # Eos # Lymph # (Auto) [place] # (Auto) Eos # (Auto) Seg Neutrophils % Seg Neuts % (Manual) Baso # (Auto) Lymphocytes % (Manual) Monocytes % (Manual) Eosinophils % (Manual) Basophils % (Manual) Seg Neutrophils # Seg Neutrophils # Man Lymphocytes # (Manual) Monocytes # (Manual) Eosinophils # (Manual) Nucleated RBC % Basophils # (Manual) PT INR APTT Heparin Anti-Xa Level ABG pH POC ABG pO2 ABG pO2 ABG HCO3 ABG O2 Saturation ABG Base Excess POC ABG pCO2 ABG Hemoglobin ABG Oxyhemoglobin ABG Sodium ABG Chloride ABG Glucose Oxyhemoglobin Sodium Potassium Chloride Carbon Dioxide BUN Creatinine Glucose POC Glucose 143 H 142 H 128 H Lactic Acid Calcium Phosphorus Magnesium AST ALT Lactate Dehydrogenase Total Bilirubin Direct Bilirubin CK-MB (CK-2) C-Reactive Protein NT-Pro-B Natriuret Pep Total Protein Albumin Arterial Blood Glucose Urine WBC (Auto) Urine Creatinine Digoxin 01/27/20 01/28/20 01/28/20 23:55 04:37 05:55 WBC RBC Hgb 9.4 L Hct 29.9 L MCHC RDW MCV MCH Lymph % (Auto) [place] % (Auto) [place] # Eos # Lymph # (Auto) [place] # (Auto) Eos # (Auto) Seg Neutrophils % Seg Neuts % (Manual) Baso # (Auto) Lymphocytes % (Manual) Monocytes % (Manual) Eosinophils % (Manual) Basophils % (Manual) Seg Neutrophils # Seg Neutrophils # Man Lymphocytes # (Manual) Monocytes # (Manual) Eosinophils # (Manual) Nucleated RBC % Basophils # (Manual) PT INR APTT Heparin Anti-Xa Level ABG pH POC ABG pO2 ABG pO2 ABG HCO3 ABG O2 Saturation ABG Base Excess POC ABG pCO2 ABG Hemoglobin ABG Oxyhemoglobin ABG Sodium ABG Chloride ABG Glucose Oxyhemoglobin Sodium Potassium Chloride Carbon Dioxide BUN Creatinine Glucose POC Glucose 166 H 169 H Lactic Acid Calcium Phosphorus Magnesium AST ALT Lactate Dehydrogenase Total Bilirubin Direct Bilirubin CK-MB (CK-2) C-Reactive Protein NT-Pro-B Natriuret Pep Total Protein Albumin Arterial Blood Glucose Urine WBC (Auto) Urine Creatinine Digoxin 01/28/20 01/28/20 01/28/20 11:58 17:26 23:46 WBC RBC Hgb Hct MCHC RDW MCV MCH Lymph % (Auto) [place] % (Auto) [place] # Eos # Lymph # (Auto) [place] # (Auto) Eos # (Auto) Seg Neutrophils % Seg Neuts % (Manual) Baso # (Auto) Lymphocytes % (Manual) Monocytes % (Manual) Eosinophils % (Manual) Basophils % (Manual) Seg Neutrophils # Seg Neutrophils # Man Lymphocytes # (Manual) Monocytes # (Manual) Eosinophils # (Manual) Nucleated RBC % Basophils # (Manual) PT INR APTT Heparin Anti-Xa Level ABG pH POC ABG pO2 ABG pO2 ABG HCO3 ABG O2 Saturation ABG Base Excess POC ABG pCO2 ABG Hemoglobin ABG Oxyhemoglobin ABG Sodium ABG Chloride ABG Glucose Oxyhemoglobin Sodium Potassium Chloride Carbon Dioxide BUN Creatinine Glucose POC Glucose 130 H 126 H 150 H Lactic Acid Calcium Phosphorus Magnesium AST ALT Lactate Dehydrogenase Total Bilirubin Direct Bilirubin CK-MB (CK-2) C-Reactive Protein NT-Pro-B Natriuret Pep Total Protein Albumin Arterial Blood Glucose Urine WBC (Auto) Urine Creatinine Digoxin 01/29/20 01/29/20 01/29/20 04:55 06:00 12:28 WBC RBC Hgb Hct MCHC RDW MCV MCH Lymph % (Auto) [place] % (Auto) [place] # Eos # Lymph # (Auto) [place] # (Auto) Eos # (Auto) Seg Neutrophils % Seg Neuts % (Manual) Baso # (Auto) Lymphocytes % (Manual) Monocytes % (Manual) Eosinophils % (Manual) Basophils % (Manual) Seg Neutrophils # Seg Neutrophils # Man Lymphocytes # (Manual) Monocytes # (Manual) Eosinophils # (Manual) Nucleated RBC % Basophils # (Manual) PT INR APTT Heparin Anti-Xa Level ABG pH POC ABG pO2 ABG pO2 ABG HCO3 ABG O2 Saturation ABG Base Excess POC ABG pCO2 ABG Hemoglobin ABG Oxyhemoglobin ABG Sodium ABG Chloride ABG Glucose Oxyhemoglobin Sodium Potassium Chloride Carbon Dioxide 34 H BUN Creatinine 0.6 L Glucose 152 H POC Glucose 157 H 156 H Lactic Acid Calcium Phosphorus Magnesium AST ALT Lactate Dehydrogenase Total Bilirubin Direct Bilirubin CK-MB (CK-2) C-Reactive Protein NT-Pro-B Natriuret Pep Total Protein Albumin Arterial Blood Glucose Urine WBC (Auto) Urine Creatinine Digoxin 01/29/20 01/30/20 01/30/20 19:06 00:29 05:39 WBC RBC Hgb Hct MCHC RDW MCV MCH Lymph % (Auto) [place] % (Auto) [place] # Eos # Lymph # (Auto) [place] # (Auto) Eos # (Auto) Seg Neutrophils % Seg Neuts % (Manual) Baso # (Auto) Lymphocytes % (Manual) Monocytes % (Manual) Eosinophils % (Manual) Basophils % (Manual) Seg Neutrophils # Seg Neutrophils # Man Lymphocytes # (Manual) Monocytes # (Manual) Eosinophils # (Manual) Nucleated RBC % Basophils # (Manual) PT INR APTT Heparin Anti-Xa Level ABG pH POC ABG pO2 ABG pO2 ABG HCO3 ABG O2 Saturation ABG Base Excess POC ABG pCO2 ABG Hemoglobin ABG Oxyhemoglobin ABG Sodium ABG Chloride ABG Glucose Oxyhemoglobin Sodium Potassium Chloride Carbon Dioxide BUN Creatinine Glucose POC Glucose 152 H 132 H 159 H Lactic Acid Calcium Phosphorus Magnesium AST ALT Lactate Dehydrogenase Total Bilirubin Direct Bilirubin CK-MB (CK-2) C-Reactive Protein NT-Pro-B Natriuret Pep Total Protein Albumin Arterial Blood Glucose Urine WBC (Auto) Urine Creatinine Digoxin 01/30/20 01/30/20 01/30/20 12:27 17:42 23:28 WBC RBC Hgb Hct MCHC RDW MCV MCH Lymph % (Auto) [place] % (Auto) [place] # Eos # Lymph # (Auto) [place] # (Auto) Eos # (Auto) Seg Neutrophils % Seg Neuts % (Manual) Baso # (Auto) Lymphocytes % (Manual) Monocytes % (Manual) Eosinophils % (Manual) Basophils % (Manual) Seg Neutrophils # Seg Neutrophils # Man Lymphocytes # (Manual) Monocytes # (Manual) Eosinophils # (Manual) Nucleated RBC % Basophils # (Manual) PT INR APTT Heparin Anti-Xa Level ABG pH POC ABG pO2 ABG pO2 ABG HCO3 ABG O2 Saturation ABG Base Excess POC ABG pCO2 ABG Hemoglobin ABG Oxyhemoglobin ABG Sodium ABG Chloride ABG Glucose Oxyhemoglobin Sodium Potassium Chloride Carbon Dioxide BUN Creatinine Glucose POC Glucose 151 H 144 H 164 H Lactic Acid Calcium Phosphorus Magnesium AST ALT Lactate Dehydrogenase Total Bilirubin Direct Bilirubin CK-MB (CK-2) C-Reactive Protein NT-Pro-B Natriuret Pep Total Protein Albumin Arterial Blood Glucose Urine WBC (Auto) Urine Creatinine Digoxin 01/31/20 01/31/20 01/31/20 05:51 11:51 18:06 WBC RBC Hgb Hct MCHC RDW MCV MCH Lymph % (Auto) [place] % (Auto) [place] # Eos # Lymph # (Auto) [place] # (Auto) Eos # (Auto) Seg Neutrophils % Seg Neuts % (Manual) Baso # (Auto) Lymphocytes % (Manual) Monocytes % (Manual) Eosinophils % (Manual) Basophils % (Manual) Seg Neutrophils # Seg Neutrophils # Man Lymphocytes # (Manual) Monocytes # (Manual) Eosinophils # (Manual) Nucleated RBC % Basophils # (Manual) PT INR APTT Heparin Anti-Xa Level ABG pH POC ABG pO2 ABG pO2 ABG HCO3 ABG O2 Saturation ABG Base Excess POC ABG pCO2 ABG Hemoglobin ABG Oxyhemoglobin ABG Sodium ABG Chloride ABG Glucose Oxyhemoglobin Sodium Potassium Chloride Carbon Dioxide BUN Creatinine Glucose POC Glucose 131 H 167 H 210 H Lactic Acid Calcium Phosphorus Magnesium AST ALT Lactate Dehydrogenase Total Bilirubin Direct Bilirubin CK-MB (CK-2) C-Reactive Protein NT-Pro-B Natriuret Pep Total Protein Albumin Arterial Blood Glucose Urine WBC (Auto) Urine Creatinine Digoxin 01/31/20 01/31/20 02/01/20 19:24 Unknown 00:34 WBC RBC Hgb Hct MCHC RDW MCV MCH Lymph % (Auto) [place] % (Auto) [place] # Eos # Lymph # (Auto) [place] # (Auto) Eos # (Auto) Seg Neutrophils % Seg Neuts % (Manual) Baso # (Auto) Lymphocytes % (Manual) Monocytes % (Manual) Eosinophils % (Manual) Basophils % (Manual) Seg Neutrophils # Seg Neutrophils # Man Lymphocytes # (Manual) Monocytes # (Manual) Eosinophils # (Manual) Nucleated RBC % Basophils # (Manual) PT INR APTT Heparin Anti-Xa Level ABG pH POC ABG pO2 ABG pO2 ABG HCO3 ABG O2 Saturation ABG Base Excess POC ABG pCO2 ABG Hemoglobin ABG Oxyhemoglobin ABG Sodium ABG Chloride ABG Glucose Oxyhemoglobin Sodium Potassium Chloride 95.3 L Carbon Dioxide 33 H BUN 36 H Creatinine Glucose 187 H POC Glucose 116 H Lactic Acid Calcium Phosphorus Magnesium AST ALT Lactate Dehydrogenase Total Bilirubin Direct Bilirubin CK-MB (CK-2) C-Reactive Protein NT-Pro-B Natriuret Pep Total Protein Albumin Arterial Blood Glucose Urine WBC (Auto) Urine Creatinine 57.4 H Digoxin 02/01/20 02/01/20 02/01/20 05:24 10:40 12:29 WBC RBC Hgb Hct MCHC RDW MCV MCH Lymph % (Auto) [place] % (Auto) [place] # Eos # Lymph # (Auto) [place] # (Auto) Eos # (Auto) Seg Neutrophils % Seg Neuts % (Manual) Baso # (Auto) Lymphocytes % (Manual) Monocytes % (Manual) Eosinophils % (Manual) Basophils % (Manual) Seg Neutrophils # Seg Neutrophils # Man Lymphocytes # (Manual) Monocytes # (Manual) Eosinophils # (Manual) Nucleated RBC % Basophils # (Manual) PT INR APTT Heparin Anti-Xa Level ABG pH POC ABG pO2 ABG pO2 ABG HCO3 ABG O2 Saturation ABG Base Excess POC ABG pCO2 ABG Hemoglobin ABG Oxyhemoglobin ABG Sodium ABG Chloride ABG Glucose Oxyhemoglobin Sodium Potassium Chloride Carbon Dioxide BUN Creatinine Glucose POC Glucose 142 H 165 H 151 H Lactic Acid Calcium Phosphorus Magnesium AST ALT Lactate Dehydrogenase Total Bilirubin Direct Bilirubin CK-MB (CK-2) C-Reactive Protein NT-Pro-B Natriuret Pep Total Protein Albumin Arterial Blood Glucose Urine WBC (Auto) Urine Creatinine Digoxin 02/01/20 02/01/20 02/02/20 17:16 23:23 06:36 WBC RBC Hgb Hct MCHC RDW MCV MCH Lymph % (Auto) [place] % (Auto) [place] # Eos # Lymph # (Auto) [place] # (Auto) Eos # (Auto) Seg Neutrophils % Seg Neuts % (Manual) Baso # (Auto) Lymphocytes % (Manual) Monocytes % (Manual) Eosinophils % (Manual) Basophils % (Manual) Seg Neutrophils # Seg Neutrophils # Man Lymphocytes # (Manual) Monocytes # (Manual) Eosinophils # (Manual) Nucleated RBC % Basophils # (Manual) PT INR APTT Heparin Anti-Xa Level ABG pH POC ABG pO2 ABG pO2 ABG HCO3 ABG O2 Saturation ABG Base Excess POC ABG pCO2 ABG Hemoglobin ABG Oxyhemoglobin ABG Sodium ABG Chloride ABG Glucose Oxyhemoglobin Sodium Potassium Chloride Carbon Dioxide BUN Creatinine Glucose POC Glucose 137 H 145 H 181 H Lactic Acid Calcium Phosphorus Magnesium AST ALT Lactate Dehydrogenase Total Bilirubin Direct Bilirubin CK-MB (CK-2) C-Reactive Protein NT-Pro-B Natriuret Pep Total Protein Albumin Arterial Blood Glucose Urine WBC (Auto) Urine Creatinine Digoxin 02/02/20 02/02/20 02/02/20 10:01 12:05 17:54 WBC RBC Hgb Hct MCHC RDW MCV MCH Lymph % (Auto) [place] % (Auto) [place] # Eos # Lymph # (Auto) [place] # (Auto) Eos # (Auto) Seg Neutrophils % Seg Neuts % (Manual) Baso # (Auto) Lymphocytes % (Manual) Monocytes % (Manual) Eosinophils % (Manual) Basophils % (Manual) Seg Neutrophils # Seg Neutrophils # Man Lymphocytes # (Manual) Monocytes # (Manual) Eosinophils # (Manual) Nucleated RBC % Basophils # (Manual) PT INR APTT Heparin Anti-Xa Level ABG pH POC ABG pO2 ABG pO2 ABG HCO3 ABG O2 Saturation ABG Base Excess POC ABG pCO2 ABG Hemoglobin ABG Oxyhemoglobin ABG Sodium ABG Chloride ABG Glucose Oxyhemoglobin Sodium Potassium Chloride 95.3 L Carbon Dioxide BUN 44 H Creatinine Glucose 234 H POC Glucose 184 H 127 H Lactic Acid Calcium Phosphorus Magnesium AST 363 H ALT 457 H Lactate Dehydrogenase Total Bilirubin Direct Bilirubin CK-MB (CK-2) C-Reactive Protein NT-Pro-B Natriuret Pep Total Protein Albumin 3.0 L Arterial Blood Glucose Urine WBC (Auto) Urine Creatinine Digoxin 02/02/20 02/03/20 02/03/20 23:47 05:32 07:04 WBC 13.0 H RBC Hgb 9.5 L Hct 30.8 L MCHC 31 L RDW 19.6 H MCV 81 L MCH 25 L Lymph % (Auto) [place] % (Auto) 9.4 H [place] # Eos # Lymph # (Auto) [place] # (Auto) 1.2 H Eos # (Auto) Seg Neutrophils % 72.3 H Seg Neuts % (Manual) Baso # (Auto) Lymphocytes % (Manual) Monocytes % (Manual) Eosinophils % (Manual) Basophils % (Manual) Seg Neutrophils # 9.4 H Seg Neutrophils # Man Lymphocytes # (Manual) Monocytes # (Manual) Eosinophils # (Manual) Nucleated RBC % Basophils # (Manual) PT INR APTT Heparin Anti-Xa Level ABG pH POC ABG pO2 ABG pO2 ABG HCO3 ABG O2 Saturation ABG Base Excess POC ABG pCO2 ABG Hemoglobin ABG Oxyhemoglobin ABG Sodium ABG Chloride ABG Glucose Oxyhemoglobin Sodium Potassium Chloride Carbon Dioxide BUN Creatinine Glucose POC Glucose 124 H 129 H Lactic Acid Calcium Phosphorus Magnesium AST ALT Lactate Dehydrogenase Total Bilirubin Direct Bilirubin CK-MB (CK-2) C-Reactive Protein NT-Pro-B Natriuret Pep Total Protein Albumin Arterial Blood Glucose Urine WBC (Auto) Urine Creatinine Digoxin 02/03/20 02/03/20 02/03/20 07:04 11:32 12:49 WBC RBC Hgb Hct MCHC RDW MCV MCH Lymph % (Auto) [place] % (Auto) [place] # Eos # Lymph # (Auto) [place] # (Auto) Eos # (Auto) Seg Neutrophils % Seg Neuts % (Manual) Baso # (Auto) Lymphocytes % (Manual) Monocytes % (Manual) Eosinophils % (Manual) Basophils % (Manual) Seg Neutrophils # Seg Neutrophils # Man Lymphocytes # (Manual) Monocytes # (Manual) Eosinophils # (Manual) Nucleated RBC % Basophils # (Manual) PT INR APTT Heparin Anti-Xa Level ABG pH POC ABG pO2 ABG pO2 ABG HCO3 ABG O2 Saturation ABG Base Excess POC ABG pCO2 ABG Hemoglobin ABG Oxyhemoglobin ABG Sodium ABG Chloride ABG Glucose Oxyhemoglobin Sodium Potassium Chloride 97.9 L Carbon Dioxide 33 H BUN 39 H Creatinine Glucose 119 H POC Glucose 138 H Lactic Acid Calcium Phosphorus Magnesium 2.60 H AST ALT Lactate Dehydrogenase Total Bilirubin Direct Bilirubin CK-MB (CK-2) C-Reactive Protein NT-Pro-B Natriuret Pep Total Protein Albumin Arterial Blood Glucose Urine WBC (Auto) Urine Creatinine Digoxin 02/03/20 02/04/20 02/04/20 18:28 16:24 16:24 WBC RBC 3.38 L Hgb 8.6 L Hct 26.9 L MCHC RDW 19.5 H MCV 80 L MCH 26 L Lymph % (Auto) [place] % (Auto) [place] # Eos # Lymph # (Auto) [place] # (Auto) Eos # (Auto) Seg Neutrophils % Seg Neuts % (Manual) Baso # (Auto) Lymphocytes % (Manual) Monocytes % (Manual) Eosinophils % (Manual) Basophils % (Manual) Seg Neutrophils # Seg Neutrophils # Man Lymphocytes # (Manual) Monocytes # (Manual) Eosinophils # (Manual) Nucleated RBC % Basophils # (Manual) PT INR APTT Heparin Anti-Xa Level ABG pH POC ABG pO2 ABG pO2 ABG HCO3 ABG O2 Saturation ABG Base Excess POC ABG pCO2 ABG Hemoglobin ABG Oxyhemoglobin ABG Sodium ABG Chloride ABG Glucose Oxyhemoglobin Sodium Potassium 3.4 L Chloride Carbon Dioxide 31 H BUN 37 H Creatinine Glucose 70 L POC Glucose 118 H Lactic Acid Calcium Phosphorus Magnesium AST 169 H ALT 394 H Lactate Dehydrogenase Total Bilirubin 1.50 H Direct Bilirubin CK-MB (CK-2) C-Reactive Protein NT-Pro-B Natriuret Pep Total Protein Albumin 2.9 L Arterial Blood Glucose Urine WBC (Auto) Urine Creatinine Digoxin 02/05/20 02/05/20 02/05/20 00:41 06:37 17:14 WBC RBC Hgb Hct MCHC RDW MCV MCH Lymph % (Auto) [place] % (Auto) [place] # Eos # Lymph # (Auto) [place] # (Auto) Eos # (Auto) Seg Neutrophils % Seg Neuts % (Manual) Baso # (Auto) Lymphocytes % (Manual) Monocytes % (Manual) Eosinophils % (Manual) Basophils % (Manual) Seg Neutrophils # Seg Neutrophils # Man Lymphocytes # (Manual) Monocytes # (Manual) Eosinophils # (Manual) Nucleated RBC % Basophils # (Manual) PT INR APTT Heparin Anti-Xa Level ABG pH POC ABG pO2 ABG pO2 ABG HCO3 ABG O2 Saturation ABG Base Excess POC ABG pCO2 ABG Hemoglobin ABG Oxyhemoglobin ABG Sodium ABG Chloride ABG Glucose Oxyhemoglobin Sodium Potassium 3.1 L Chloride Carbon Dioxide 35 H BUN 32 H Creatinine 0.7 L Glucose POC Glucose 69 L 127 H Lactic Acid Calcium Phosphorus Magnesium AST 134 H ALT 352 H Lactate Dehydrogenase Total Bilirubin 1.60 H Direct Bilirubin CK-MB (CK-2) C-Reactive Protein NT-Pro-B Natriuret Pep Total Protein Albumin 2.9 L Arterial Blood Glucose Urine WBC (Auto) Urine Creatinine Digoxin 02/05/20 02/06/20 02/06/20 23:43 05:32 08:01 WBC RBC Hgb Hct MCHC RDW MCV MCH Lymph % (Auto) [place] % (Auto) [place] # Eos # Lymph # (Auto) [place] # (Auto) Eos # (Auto) Seg Neutrophils % Seg Neuts % (Manual) Baso # (Auto) Lymphocytes % (Manual) Monocytes % (Manual) Eosinophils % (Manual) Basophils % (Manual) Seg Neutrophils # Seg Neutrophils # Man Lymphocytes # (Manual) Monocytes # (Manual) Eosinophils # (Manual) Nucleated RBC % Basophils # (Manual) PT INR APTT Heparin Anti-Xa Level ABG pH POC ABG pO2 ABG pO2 ABG HCO3 ABG O2 Saturation ABG Base Excess POC ABG pCO2 ABG Hemoglobin ABG Oxyhemoglobin ABG Sodium ABG Chloride ABG Glucose Oxyhemoglobin Sodium Potassium Chloride Carbon Dioxide BUN 40 H Creatinine Glucose 132 H POC Glucose 129 H 131 H Lactic Acid Calcium Phosphorus Magnesium AST ALT Lactate Dehydrogenase Total Bilirubin Direct Bilirubin CK-MB (CK-2) C-Reactive Protein NT-Pro-B Natriuret Pep Total Protein Albumin Arterial Blood Glucose Urine WBC (Auto) Urine Creatinine Digoxin 02/06/20 02/06/20 02/06/20 11:51 16:28 17:32 WBC RBC Hgb Hct MCHC RDW MCV MCH Lymph % (Auto) [place] % (Auto) [place] # Eos # Lymph # (Auto) [place] # (Auto) Eos # (Auto) Seg Neutrophils % Seg Neuts % (Manual) Baso # (Auto) Lymphocytes % (Manual) Monocytes % (Manual) Eosinophils % (Manual) Basophils % (Manual) Seg Neutrophils # Seg Neutrophils # Man Lymphocytes # (Manual) Monocytes # (Manual) Eosinophils # (Manual) Nucleated RBC % Basophils # (Manual) PT INR APTT Heparin Anti-Xa Level ABG pH POC ABG pO2 ABG pO2 ABG HCO3 ABG O2 Saturation ABG Base Excess POC ABG pCO2 ABG Hemoglobin ABG Oxyhemoglobin ABG Sodium ABG Chloride ABG Glucose Oxyhemoglobin Sodium Potassium Chloride Carbon Dioxide BUN Creatinine Glucose POC Glucose 167 H 129 H Lactic Acid Calcium Phosphorus Magnesium AST 824 H ALT 948 H Lactate Dehydrogenase Total Bilirubin 1.70 H Direct Bilirubin 1.2 H CK-MB (CK-2) C-Reactive Protein NT-Pro-B Natriuret Pep Total Protein Albumin 2.9 L Arterial Blood Glucose Urine WBC (Auto) Urine Creatinine Digoxin 02/07/20 02/07/20 02/07/20 00:11 04:57 04:57 WBC RBC Hgb 9.2 L Hct 29.7 L MCHC 31 L RDW 20.2 H MCV 80 L MCH 25 L Lymph % (Auto) [place] % (Auto) [place] # Eos # Lymph # (Auto) [place] # (Auto) Eos # (Auto) Seg Neutrophils % Seg Neuts % (Manual) Baso # (Auto) Lymphocytes % (Manual) Monocytes % (Manual) Eosinophils % (Manual) Basophils % (Manual) Seg Neutrophils # Seg Neutrophils # Man Lymphocytes # (Manual) Monocytes # (Manual) Eosinophils # (Manual) Nucleated RBC % Basophils # (Manual) PT INR APTT Heparin Anti-Xa Level ABG pH POC ABG pO2 ABG pO2 ABG HCO3 ABG O2 Saturation ABG Base Excess POC ABG pCO2 ABG Hemoglobin ABG Oxyhemoglobin ABG Sodium ABG Chloride ABG Glucose Oxyhemoglobin Sodium Potassium 3.4 L D Chloride Carbon Dioxide 32 H BUN 39 H Creatinine Glucose 106 H POC Glucose 121 H Lactic Acid Calcium Phosphorus Magnesium AST ALT Lactate Dehydrogenase Total Bilirubin Direct Bilirubin CK-MB (CK-2) C-Reactive Protein NT-Pro-B Natriuret Pep Total Protein Albumin Arterial Blood Glucose Urine WBC (Auto) Urine Creatinine Digoxin 02/07/20 02/07/20 02/07/20 15:03 15:03 17:11 WBC RBC Hgb Hct MCHC RDW MCV MCH Lymph % (Auto) [place] % (Auto) [place] # Eos # Lymph # (Auto) [place] # (Auto) Eos # (Auto) Seg Neutrophils % Seg Neuts % (Manual) Baso # (Auto) Lymphocytes % (Manual) Monocytes % (Manual) Eosinophils % (Manual) Basophils % (Manual) Seg Neutrophils # Seg Neutrophils # Man Lymphocytes # (Manual) Monocytes # (Manual) Eosinophils # (Manual) Nucleated RBC % Basophils # (Manual) PT 27.0 H INR 2.46 H APTT Heparin Anti-Xa Level ABG pH POC ABG pO2 ABG pO2 ABG HCO3 ABG O2 Saturation ABG Base Excess POC ABG pCO2 ABG Hemoglobin ABG Oxyhemoglobin ABG Sodium ABG Chloride ABG Glucose Oxyhemoglobin Sodium Potassium Chloride Carbon Dioxide BUN Creatinine Glucose POC Glucose 109 H Lactic Acid Calcium Phosphorus Magnesium AST 424 H ALT 796 H Lactate Dehydrogenase Total Bilirubin 1.60 H Direct Bilirubin 1.2 H CK-MB (CK-2) C-Reactive Protein NT-Pro-B Natriuret Pep Total Protein Albumin 2.9 L Arterial Blood Glucose Urine WBC (Auto) Urine Creatinine Digoxin 02/08/20 02/08/20 02/08/20 12:14 17:44 19:00 WBC RBC Hgb Hct MCHC RDW MCV MCH Lymph % (Auto) [place] % (Auto) [place] # Eos # Lymph # (Auto) [place] # (Auto) Eos # (Auto) Seg Neutrophils % Seg Neuts % (Manual) Baso # (Auto) Lymphocytes % (Manual) Monocytes % (Manual) Eosinophils % (Manual) Basophils % (Manual) Seg Neutrophils # Seg Neutrophils # Man Lymphocytes # (Manual) Monocytes # (Manual) Eosinophils # (Manual) Nucleated RBC % Basophils # (Manual) PT INR APTT Heparin Anti-Xa Level ABG pH POC ABG pO2 ABG pO2 ABG HCO3 ABG O2 Saturation ABG Base Excess POC ABG pCO2 ABG Hemoglobin ABG Oxyhemoglobin ABG Sodium ABG Chloride ABG Glucose Oxyhemoglobin Sodium Potassium Chloride Carbon Dioxide BUN Creatinine Glucose POC Glucose 111 H 107 H Lactic Acid Calcium Phosphorus Magnesium AST 309 H ALT 650 H Lactate Dehydrogenase Total Bilirubin 1.30 H Direct Bilirubin 0.9 H CK-MB (CK-2) C-Reactive Protein NT-Pro-B Natriuret Pep Total Protein 6.2 L Albumin 2.7 L Arterial Blood Glucose Urine WBC (Auto) Urine Creatinine Digoxin 02/09/20 02/09/20 02/09/20 05:41 12:28 18:07 WBC RBC Hgb Hct MCHC RDW MCV MCH Lymph % (Auto) [place] % (Auto) [place] # Eos # Lymph # (Auto) [place] # (Auto) Eos # (Auto) Seg Neutrophils % Seg Neuts % (Manual) Baso # (Auto) Lymphocytes % (Manual) Monocytes % (Manual) Eosinophils % (Manual) Basophils % (Manual) Seg Neutrophils # Seg Neutrophils # Man Lymphocytes # (Manual) Monocytes # (Manual) Eosinophils # (Manual) Nucleated RBC % Basophils # (Manual) PT INR APTT Heparin Anti-Xa Level ABG pH POC ABG pO2 ABG pO2 ABG HCO3 ABG O2 Saturation ABG Base Excess POC ABG pCO2 ABG Hemoglobin ABG Oxyhemoglobin ABG Sodium ABG Chloride ABG Glucose Oxyhemoglobin Sodium Potassium Chloride Carbon Dioxide BUN Creatinine Glucose POC Glucose 113 H 140 H 143 H Lactic Acid Calcium Phosphorus Magnesium AST ALT Lactate Dehydrogenase Total Bilirubin Direct Bilirubin CK-MB (CK-2) C-Reactive Protein NT-Pro-B Natriuret Pep Total Protein Albumin Arterial Blood Glucose Urine WBC (Auto) Urine Creatinine Digoxin 02/09/20 02/09/20 02/10/20 21:40 23:45 06:00 WBC RBC Hgb Hct MCHC RDW MCV MCH Lymph % (Auto) [place] % (Auto) [place] # Eos # Lymph # (Auto) [place] # (Auto) Eos # (Auto) Seg Neutrophils % Seg Neuts % (Manual) Baso # (Auto) Lymphocytes % (Manual) Monocytes % (Manual) Eosinophils % (Manual) Basophils % (Manual) Seg Neutrophils # Seg Neutrophils # Man Lymphocytes # (Manual) Monocytes # (Manual) Eosinophils # (Manual) Nucleated RBC % Basophils # (Manual) PT INR APTT Heparin Anti-Xa Level ABG pH POC ABG pO2 ABG pO2 59.8 L ABG HCO3 33.3 H ABG O2 Saturation 88.9 L ABG Base Excess 7.4 H POC ABG pCO2 ABG Hemoglobin 10.4 L ABG Oxyhemoglobin ABG Sodium ABG Chloride ABG Glucose Oxyhemoglobin 86.3 L Sodium Potassium Chloride Carbon Dioxide BUN Creatinine Glucose POC Glucose 127 H 114 H Lactic Acid Calcium Phosphorus Magnesium AST ALT Lactate Dehydrogenase Total Bilirubin Direct Bilirubin CK-MB (CK-2) C-Reactive Protein NT-Pro-B Natriuret Pep Total Protein Albumin Arterial Blood Glucose Urine WBC (Auto) Urine Creatinine Digoxin 02/10/20 02/10/20 02/10/20 07:40 07:40 13:38 WBC 11.5 H RBC Hgb 10.6 L Hct 34.7 L MCHC 31 L RDW 19.8 H MCV 79 L MCH 24 L Lymph % (Auto) [place] % (Auto) 9.2 H [place] # Eos # Lymph # (Auto) [place] # (Auto) 1.1 H Eos # (Auto) Seg Neutrophils % Seg Neuts % (Manual) Baso # (Auto) Lymphocytes % (Manual) Monocytes % (Manual) Eosinophils % (Manual) Basophils % (Manual) Seg Neutrophils # Seg Neutrophils # Man Lymphocytes # (Manual) Monocytes # (Manual) Eosinophils # (Manual) Nucleated RBC % Basophils # (Manual) PT INR APTT Heparin Anti-Xa Level ABG pH POC ABG pO2 ABG pO2 ABG HCO3 ABG O2 Saturation ABG Base Excess POC ABG pCO2 ABG Hemoglobin ABG Oxyhemoglobin ABG Sodium ABG Chloride ABG Glucose Oxyhemoglobin Sodium 151 H Potassium Chloride 107.2 H Carbon Dioxide 36 H BUN 25 H Creatinine 0.7 L Glucose 114 H POC Glucose 116 H Lactic Acid Calcium Phosphorus Magnesium 2.40 H AST ALT Lactate Dehydrogenase Total Bilirubin Direct Bilirubin CK-MB (CK-2) C-Reactive Protein NT-Pro-B Natriuret Pep Total Protein Albumin Arterial Blood Glucose Urine WBC (Auto) Urine Creatinine Digoxin 02/10/20 02/11/20 02/11/20 17:44 05:47 12:21 WBC RBC Hgb Hct MCHC RDW MCV MCH Lymph % (Auto) [place] % (Auto) [place] # Eos # Lymph # (Auto) [place] # (Auto) Eos # (Auto) Seg Neutrophils % Seg Neuts % (Manual) Baso # (Auto) Lymphocytes % (Manual) Monocytes % (Manual) Eosinophils % (Manual) Basophils % (Manual) Seg Neutrophils # Seg Neutrophils # Man Lymphocytes # (Manual) Monocytes # (Manual) Eosinophils # (Manual) Nucleated RBC % Basophils # (Manual) PT INR APTT Heparin Anti-Xa Level ABG pH POC ABG pO2 ABG pO2 ABG HCO3 ABG O2 Saturation ABG Base Excess POC ABG pCO2 ABG Hemoglobin ABG Oxyhemoglobin ABG Sodium ABG Chloride ABG Glucose Oxyhemoglobin Sodium Potassium Chloride Carbon Dioxide BUN Creatinine Glucose POC Glucose 139 H 173 H 143 H Lactic Acid Calcium Phosphorus Magnesium AST ALT Lactate Dehydrogenase Total Bilirubin Direct Bilirubin CK-MB (CK-2) C-Reactive Protein NT-Pro-B Natriuret Pep Total Protein Albumin Arterial Blood Glucose Urine WBC (Auto) Urine Creatinine Digoxin 02/11/20 02/11/20 02/12/20 13:43 14:11 00:15 WBC RBC Hgb Hct MCHC RDW MCV MCH Lymph % (Auto) [place] % (Auto) [place] # Eos # Lymph # (Auto) [place] # (Auto) Eos # (Auto) Seg Neutrophils % Seg Neuts % (Manual) Baso # (Auto) Lymphocytes % (Manual) Monocytes % (Manual) Eosinophils % (Manual) Basophils % (Manual) Seg Neutrophils # Seg Neutrophils # Man Lymphocytes # (Manual) Monocytes # (Manual) Eosinophils # (Manual) Nucleated RBC % Basophils # (Manual) PT INR APTT Heparin Anti-Xa Level ABG pH 7.502 H POC ABG pO2 77.7 L ABG pO2 ABG HCO3 ABG O2 Saturation ABG Base Excess POC ABG pCO2 ABG Hemoglobin 11.1 L ABG Oxyhemoglobin ABG Sodium ABG Chloride 108.0 H ABG Glucose 151 H Oxyhemoglobin Sodium Potassium Chloride Carbon Dioxide BUN Creatinine Glucose POC Glucose 130 H 125 H Lactic Acid Calcium Phosphorus Magnesium AST ALT Lactate Dehydrogenase Total Bilirubin Direct Bilirubin CK-MB (CK-2) C-Reactive Protein NT-Pro-B Natriuret Pep Total Protein Albumin Arterial Blood Glucose 151 H Urine WBC (Auto) Urine Creatinine Digoxin 02/12/20 02/12/20 02/12/20 04:56 04:56 17:42 WBC RBC Hgb 9.9 L Hct 31.8 L MCHC 31 L RDW 19.4 H MCV 79 L MCH 25 L Lymph % (Auto) [place] % (Auto) 10.3 H [place] # Eos # Lymph # (Auto) [place] # (Auto) 1.0 H Eos # (Auto) Seg Neutrophils % Seg Neuts % (Manual) Baso # (Auto) Lymphocytes % (Manual) Monocytes % (Manual) Eosinophils % (Manual) Basophils % (Manual) Seg Neutrophils # Seg Neutrophils # Man Lymphocytes # (Manual) Monocytes # (Manual) Eosinophils # (Manual) Nucleated RBC % Basophils # (Manual) PT INR APTT Heparin Anti-Xa Level ABG pH POC ABG pO2 ABG pO2 ABG HCO3 ABG O2 Saturation ABG Base Excess POC ABG pCO2 ABG Hemoglobin ABG Oxyhemoglobin ABG Sodium ABG Chloride ABG Glucose Oxyhemoglobin Sodium 149 H Potassium Chloride 108.6 H Carbon Dioxide BUN 28 H Creatinine 0.7 L Glucose 108 H POC Glucose 113 H Lactic Acid Calcium Phosphorus Magnesium AST ALT Lactate Dehydrogenase Total Bilirubin Direct Bilirubin CK-MB (CK-2) C-Reactive Protein NT-Pro-B Natriuret Pep Total Protein Albumin Arterial Blood Glucose Urine WBC (Auto) Urine Creatinine Digoxin 02/13/20 02/13/20 02/13/20 00:39 05:36 12:25 WBC RBC Hgb Hct MCHC RDW MCV MCH Lymph % (Auto) [place] % (Auto) [place] # Eos # Lymph # (Auto) [place] # (Auto) Eos # (Auto) Seg Neutrophils % Seg Neuts % (Manual) Baso # (Auto) Lymphocytes % (Manual) Monocytes % (Manual) Eosinophils % (Manual) Basophils % (Manual) Seg Neutrophils # Seg Neutrophils # Man Lymphocytes # (Manual) Monocytes # (Manual) Eosinophils # (Manual) Nucleated RBC % Basophils # (Manual) PT INR APTT Heparin Anti-Xa Level ABG pH POC ABG pO2 ABG pO2 ABG HCO3 ABG O2 Saturation ABG Base Excess POC ABG pCO2 ABG Hemoglobin ABG Oxyhemoglobin ABG Sodium ABG Chloride ABG Glucose Oxyhemoglobin Sodium Potassium Chloride Carbon Dioxide BUN Creatinine Glucose POC Glucose 129 H 126 H 129 H Lactic Acid Calcium Phosphorus Magnesium AST ALT Lactate Dehydrogenase Total Bilirubin Direct Bilirubin CK-MB (CK-2) C-Reactive Protein NT-Pro-B Natriuret Pep Total Protein Albumin Arterial Blood Glucose Urine WBC (Auto) Urine Creatinine Digoxin 02/13/20 02/14/20 02/14/20 17:59 00:15 05:41 WBC RBC Hgb Hct MCHC RDW MCV MCH Lymph % (Auto) [place] % (Auto) [place] # Eos # Lymph # (Auto) [place] # (Auto) Eos # (Auto) Seg Neutrophils % Seg Neuts % (Manual) Baso # (Auto) Lymphocytes % (Manual) Monocytes % (Manual) Eosinophils % (Manual) Basophils % (Manual) Seg Neutrophils # Seg Neutrophils # Man Lymphocytes # (Manual) Monocytes # (Manual) Eosinophils # (Manual) Nucleated RBC % Basophils # (Manual) PT INR APTT Heparin Anti-Xa Level ABG pH POC ABG pO2 ABG pO2 ABG HCO3 ABG O2 Saturation ABG Base Excess POC ABG pCO2 ABG Hemoglobin ABG Oxyhemoglobin ABG Sodium ABG Chloride ABG Glucose Oxyhemoglobin Sodium Potassium Chloride Carbon Dioxide BUN Creatinine Glucose POC Glucose 153 H 130 H 130 H Lactic Acid Calcium Phosphorus Magnesium AST ALT Lactate Dehydrogenase Total Bilirubin Direct Bilirubin CK-MB (CK-2) C-Reactive Protein NT-Pro-B Natriuret Pep Total Protein Albumin Arterial Blood Glucose Urine WBC (Auto) Urine Creatinine Digoxin 02/14/20 02/15/20 02/15/20 11:32 00:12 05:27 WBC RBC Hgb Hct MCHC RDW MCV MCH Lymph % (Auto) [place] % (Auto) [place] # Eos # Lymph # (Auto) [place] # (Auto) Eos # (Auto) Seg Neutrophils % Seg Neuts % (Manual) Baso # (Auto) Lymphocytes % (Manual) Monocytes % (Manual) Eosinophils % (Manual) Basophils % (Manual) Seg Neutrophils # Seg Neutrophils # Man Lymphocytes # (Manual) Monocytes # (Manual) Eosinophils # (Manual) Nucleated RBC % Basophils # (Manual) PT INR APTT Heparin Anti-Xa Level ABG pH POC ABG pO2 ABG pO2 ABG HCO3 ABG O2 Saturation ABG Base Excess POC ABG pCO2 ABG Hemoglobin ABG Oxyhemoglobin ABG Sodium ABG Chloride ABG Glucose Oxyhemoglobin Sodium Potassium Chloride Carbon Dioxide BUN Creatinine Glucose POC Glucose 157 H 124 H 111 H Lactic Acid Calcium Phosphorus Magnesium AST ALT Lactate Dehydrogenase Total Bilirubin Direct Bilirubin CK-MB (CK-2) C-Reactive Protein NT-Pro-B Natriuret Pep Total Protein Albumin Arterial Blood Glucose Urine WBC (Auto) Urine Creatinine Digoxin 02/15/20 02/15/20 02/15/20 06:59 06:59 11:14 WBC RBC Hgb 10.4 L Hct 33.7 L MCHC 31 L RDW 19.4 H MCV 80 L MCH 24 L Lymph % (Auto) [place] % (Auto) [place] # Eos # Lymph # (Auto) [place] # (Auto) Eos # (Auto) Seg Neutrophils % Seg Neuts % (Manual) Baso # (Auto) Lymphocytes % (Manual) Monocytes % (Manual) Eosinophils % (Manual) Basophils % (Manual) 2.0 H Seg Neutrophils # Seg Neutrophils # Man Lymphocytes # (Manual) Monocytes # (Manual) Eosinophils # (Manual) Nucleated RBC % 1.0 H Basophils # (Manual) 0.2 H PT INR APTT Heparin Anti-Xa Level ABG pH POC ABG pO2 ABG pO2 ABG HCO3 ABG O2 Saturation ABG Base Excess POC ABG pCO2 ABG Hemoglobin ABG Oxyhemoglobin ABG Sodium ABG Chloride ABG Glucose Oxyhemoglobin Sodium 149 H Potassium Chloride 108.4 H Carbon Dioxide 31 H BUN 40 H Creatinine 0.7 L Glucose 150 H POC Glucose 128 H Lactic Acid Calcium Phosphorus Magnesium AST ALT Lactate Dehydrogenase Total Bilirubin Direct Bilirubin CK-MB (CK-2) C-Reactive Protein NT-Pro-B Natriuret Pep Total Protein Albumin Arterial Blood Glucose Urine WBC (Auto) Urine Creatinine Digoxin 02/15/20 02/15/20 02/16/20 17:46 23:50 05:03 WBC RBC Hgb Hct MCHC RDW MCV MCH Lymph % (Auto) [place] % (Auto) [place] # Eos # Lymph # (Auto) [place] # (Auto) Eos # (Auto) Seg Neutrophils % Seg Neuts % (Manual) Baso # (Auto) Lymphocytes % (Manual) Monocytes % (Manual) Eosinophils % (Manual) Basophils % (Manual) Seg Neutrophils # Seg Neutrophils # Man Lymphocytes # (Manual) Monocytes # (Manual) Eosinophils # (Manual) Nucleated RBC % Basophils # (Manual) PT INR APTT Heparin Anti-Xa Level ABG pH POC ABG pO2 ABG pO2 ABG HCO3 ABG O2 Saturation ABG Base Excess POC ABG pCO2 ABG Hemoglobin ABG Oxyhemoglobin ABG Sodium ABG Chloride ABG Glucose Oxyhemoglobin Sodium Potassium Chloride Carbon Dioxide BUN Creatinine Glucose POC Glucose 154 H 135 H 148 H Lactic Acid Calcium Phosphorus Magnesium AST ALT Lactate Dehydrogenase Total Bilirubin Direct Bilirubin CK-MB (CK-2) C-Reactive Protein NT-Pro-B Natriuret Pep Total Protein Albumin Arterial Blood Glucose Urine WBC (Auto) Urine Creatinine Digoxin 02/16/20 02/16/20 02/16/20 07:53 11:28 17:52 WBC RBC Hgb Hct MCHC RDW MCV MCH Lymph % (Auto) [place] % (Auto) [place] # Eos # Lymph # (Auto) [place] # (Auto) Eos # (Auto) Seg Neutrophils % Seg Neuts % (Manual) Baso # (Auto) Lymphocytes % (Manual) Monocytes % (Manual) Eosinophils % (Manual) Basophils % (Manual) Seg Neutrophils # Seg Neutrophils # Man Lymphocytes # (Manual) Monocytes # (Manual) Eosinophils # (Manual) Nucleated RBC % Basophils # (Manual) PT INR APTT Heparin Anti-Xa Level ABG pH POC ABG pO2 ABG pO2 ABG HCO3 ABG O2 Saturation ABG Base Excess POC ABG pCO2 ABG Hemoglobin ABG Oxyhemoglobin ABG Sodium ABG Chloride ABG Glucose Oxyhemoglobin Sodium Potassium Chloride 107.9 H Carbon Dioxide BUN 38 H Creatinine 0.6 L Glucose 151 H POC Glucose 123 H 152 H Lactic Acid Calcium Phosphorus Magnesium AST ALT Lactate Dehydrogenase Total Bilirubin Direct Bilirubin CK-MB (CK-2) C-Reactive Protein NT-Pro-B Natriuret Pep Total Protein Albumin Arterial Blood Glucose Urine WBC (Auto) Urine Creatinine Digoxin 02/16/20 02/17/20 02/17/20 23:49 06:24 11:36 WBC RBC Hgb Hct MCHC RDW MCV MCH Lymph % (Auto) [place] % (Auto) [place] # Eos # Lymph # (Auto) [place] # (Auto) Eos # (Auto) Seg Neutrophils % Seg Neuts % (Manual) Baso # (Auto) Lymphocytes % (Manual) Monocytes % (Manual) Eosinophils % (Manual) Basophils % (Manual) Seg Neutrophils # Seg Neutrophils # Man Lymphocytes # (Manual) Monocytes # (Manual) Eosinophils # (Manual) Nucleated RBC % Basophils # (Manual) PT INR APTT Heparin Anti-Xa Level ABG pH POC ABG pO2 ABG pO2 ABG HCO3 ABG O2 Saturation ABG Base Excess POC ABG pCO2 ABG Hemoglobin ABG Oxyhemoglobin ABG Sodium ABG Chloride ABG Glucose Oxyhemoglobin Sodium Potassium Chloride Carbon Dioxide BUN Creatinine Glucose POC Glucose 156 H 193 H 162 H Lactic Acid Calcium Phosphorus Magnesium AST ALT Lactate Dehydrogenase Total Bilirubin Direct Bilirubin CK-MB (CK-2) C-Reactive Protein NT-Pro-B Natriuret Pep Total Protein Albumin Arterial Blood Glucose Urine WBC (Auto) Urine Creatinine Digoxin 02/17/20 02/17/20 02/18/20 17:55 23:28 05:11 WBC RBC Hgb Hct MCHC RDW MCV MCH Lymph % (Auto) [place] % (Auto) [place] # Eos # Lymph # (Auto) [place] # (Auto) Eos # (Auto) Seg Neutrophils % Seg Neuts % (Manual) Baso # (Auto) Lymphocytes % (Manual) Monocytes % (Manual) Eosinophils % (Manual) Basophils % (Manual) Seg Neutrophils # Seg Neutrophils # Man Lymphocytes # (Manual) Monocytes # (Manual) Eosinophils # (Manual) Nucleated RBC % Basophils # (Manual) PT INR APTT Heparin Anti-Xa Level ABG pH POC ABG pO2 ABG pO2 ABG HCO3 ABG O2 Saturation ABG Base Excess POC ABG pCO2 ABG Hemoglobin ABG Oxyhemoglobin ABG Sodium ABG Chloride ABG Glucose Oxyhemoglobin Sodium Potassium Chloride Carbon Dioxide BUN Creatinine Glucose POC Glucose 165 H 146 H 122 H Lactic Acid Calcium Phosphorus Magnesium AST ALT Lactate Dehydrogenase Total Bilirubin Direct Bilirubin CK-MB (CK-2) C-Reactive Protein NT-Pro-B Natriuret Pep Total Protein Albumin Arterial Blood Glucose Urine WBC (Auto) Urine Creatinine Digoxin 02/18/20 02/18/20 02/19/20 12:24 17:29 00:01 WBC RBC Hgb Hct MCHC RDW MCV MCH Lymph % (Auto) [place] % (Auto) [place] # Eos # Lymph # (Auto) [place] # (Auto) Eos # (Auto) Seg Neutrophils % Seg Neuts % (Manual) Baso # (Auto) Lymphocytes % (Manual) Monocytes % (Manual) Eosinophils % (Manual) Basophils % (Manual) Seg Neutrophils # Seg Neutrophils # Man Lymphocytes # (Manual) Monocytes # (Manual) Eosinophils # (Manual) Nucleated RBC % Basophils # (Manual) PT INR APTT Heparin Anti-Xa Level ABG pH POC ABG pO2 ABG pO2 ABG HCO3 ABG O2 Saturation ABG Base Excess POC ABG pCO2 ABG Hemoglobin ABG Oxyhemoglobin ABG Sodium ABG Chloride ABG Glucose Oxyhemoglobin Sodium Potassium Chloride Carbon Dioxide BUN Creatinine Glucose POC Glucose 162 H 136 H 145 H Lactic Acid Calcium Phosphorus Magnesium AST ALT Lactate Dehydrogenase Total Bilirubin Direct Bilirubin CK-MB (CK-2) C-Reactive Protein NT-Pro-B Natriuret Pep Total Protein Albumin Arterial Blood Glucose Urine WBC (Auto) Urine Creatinine Digoxin 02/19/20 02/19/20 02/19/20 05:53 11:44 17:32 WBC RBC Hgb Hct MCHC RDW MCV MCH Lymph % (Auto) [place] % (Auto) [place] # Eos # Lymph # (Auto) [place] # (Auto) Eos # (Auto) Seg Neutrophils % Seg Neuts % (Manual) Baso # (Auto) Lymphocytes % (Manual) Monocytes % (Manual) Eosinophils % (Manual) Basophils % (Manual) Seg Neutrophils # Seg Neutrophils # Man Lymphocytes # (Manual) Monocytes # (Manual) Eosinophils # (Manual) Nucleated RBC % Basophils # (Manual) PT INR APTT Heparin Anti-Xa Level ABG pH POC ABG pO2 ABG pO2 ABG HCO3 ABG O2 Saturation ABG Base Excess POC ABG pCO2 ABG Hemoglobin ABG Oxyhemoglobin ABG Sodium ABG Chloride ABG Glucose Oxyhemoglobin Sodium Potassium Chloride Carbon Dioxide BUN Creatinine Glucose POC Glucose 116 H 120 H 154 H Lactic Acid Calcium Phosphorus Magnesium AST ALT Lactate Dehydrogenase Total Bilirubin Direct Bilirubin CK-MB (CK-2) C-Reactive Protein NT-Pro-B Natriuret Pep Total Protein Albumin Arterial Blood Glucose Urine WBC (Auto) Urine Creatinine Digoxin 02/19/20 02/20/20 02/20/20 23:43 00:24 00:24 WBC RBC Hgb 9.4 L Hct 30.0 L MCHC 31 L RDW 20.4 H MCV 79 L MCH 25 L Lymph % (Auto) [place] % (Auto) 8.5 H [place] # Eos # Lymph # (Auto) [place] # (Auto) Eos # (Auto) Seg Neutrophils % Seg Neuts % (Manual) Baso # (Auto) Lymphocytes % (Manual) Monocytes % (Manual) Eosinophils % (Manual) Basophils % (Manual) Seg Neutrophils # Seg Neutrophils # Man Lymphocytes # (Manual) Monocytes # (Manual) Eosinophils # (Manual) Nucleated RBC % Basophils # (Manual) PT INR APTT Heparin Anti-Xa Level ABG pH POC ABG pO2 ABG pO2 ABG HCO3 ABG O2 Saturation ABG Base Excess POC ABG pCO2 ABG Hemoglobin ABG Oxyhemoglobin ABG Sodium ABG Chloride ABG Glucose Oxyhemoglobin Sodium 147 H Potassium 3.4 L Chloride Carbon Dioxide 31 H BUN 34 H Creatinine 0.5 L Glucose 135 H POC Glucose 122 H Lactic Acid Calcium Phosphorus Magnesium AST ALT Lactate Dehydrogenase Total Bilirubin Direct Bilirubin CK-MB (CK-2) C-Reactive Protein NT-Pro-B Natriuret Pep Total Protein Albumin Arterial Blood Glucose Urine WBC (Auto) Urine Creatinine Digoxin 02/20/20 02/20/20 02/20/20 06:07 06:45 12:03 WBC RBC Hgb Hct MCHC RDW MCV MCH Lymph % (Auto) [place] % (Auto) [place] # Eos # Lymph # (Auto) [place] # (Auto) Eos # (Auto) Seg Neutrophils % Seg Neuts % (Manual) Baso # (Auto) Lymphocytes % (Manual) Monocytes % (Manual) Eosinophils % (Manual) Basophils % (Manual) Seg Neutrophils # Seg Neutrophils # Man Lymphocytes # (Manual) Monocytes # (Manual) Eosinophils # (Manual) Nucleated RBC % Basophils # (Manual) PT INR APTT Heparin Anti-Xa Level ABG pH 7.461 H POC ABG pO2 ABG pO2 ABG HCO3 33.3 H ABG O2 Saturation ABG Base Excess 8.4 H POC ABG pCO2 ABG Hemoglobin 10.0 L ABG Oxyhemoglobin ABG Sodium ABG Chloride ABG Glucose Oxyhemoglobin 94.1 L Sodium Potassium Chloride Carbon Dioxide BUN Creatinine Glucose POC Glucose 109 H 128 H Lactic Acid Calcium Phosphorus Magnesium AST ALT Lactate Dehydrogenase Total Bilirubin Direct Bilirubin CK-MB (CK-2) C-Reactive Protein NT-Pro-B Natriuret Pep Total Protein Albumin Arterial Blood Glucose Urine WBC (Auto) Urine Creatinine Digoxin 02/20/20 02/20/20 02/21/20 18:02 23:55 05:42 WBC RBC Hgb Hct MCHC RDW MCV MCH Lymph % (Auto) [place] % (Auto) [place] # Eos # Lymph # (Auto) [place] # (Auto) Eos # (Auto) Seg Neutrophils % Seg Neuts % (Manual) Baso # (Auto) Lymphocytes % (Manual) Monocytes % (Manual) Eosinophils % (Manual) Basophils % (Manual) Seg Neutrophils # Seg Neutrophils # Man Lymphocytes # (Manual) Monocytes # (Manual) Eosinophils # (Manual) Nucleated RBC % Basophils # (Manual) PT INR APTT Heparin Anti-Xa Level ABG pH POC ABG pO2 ABG pO2 ABG HCO3 ABG O2 Saturation ABG Base Excess POC ABG pCO2 ABG Hemoglobin ABG Oxyhemoglobin ABG Sodium ABG Chloride ABG Glucose Oxyhemoglobin Sodium Potassium Chloride Carbon Dioxide BUN Creatinine Glucose POC Glucose 118 H 125 H 127 H Lactic Acid Calcium Phosphorus Magnesium AST ALT Lactate Dehydrogenase Total Bilirubin Direct Bilirubin CK-MB (CK-2) C-Reactive Protein NT-Pro-B Natriuret Pep Total Protein Albumin Arterial Blood Glucose Urine WBC (Auto) Urine Creatinine Digoxin 02/21/20 02/21/20 02/21/20 12:10 17:35 23:40 WBC RBC Hgb Hct MCHC RDW MCV MCH Lymph % (Auto) [place] % (Auto) [place] # Eos # Lymph # (Auto) [place] # (Auto) Eos # (Auto) Seg Neutrophils % Seg Neuts % (Manual) Baso # (Auto) Lymphocytes % (Manual) Monocytes % (Manual) Eosinophils % (Manual) Basophils % (Manual) Seg Neutrophils # Seg Neutrophils # Man Lymphocytes # (Manual) Monocytes # (Manual) Eosinophils # (Manual) Nucleated RBC % Basophils # (Manual) PT INR APTT Heparin Anti-Xa Level ABG pH POC ABG pO2 ABG pO2 ABG HCO3 ABG O2 Saturation ABG Base Excess POC ABG pCO2 ABG Hemoglobin ABG Oxyhemoglobin ABG Sodium ABG Chloride ABG Glucose Oxyhemoglobin Sodium Potassium Chloride Carbon Dioxide BUN Creatinine Glucose POC Glucose 128 H 113 H 125 H Lactic Acid Calcium Phosphorus Magnesium AST ALT Lactate Dehydrogenase Total Bilirubin Direct Bilirubin CK-MB (CK-2) C-Reactive Protein NT-Pro-B Natriuret Pep Total Protein Albumin Arterial Blood Glucose Urine WBC (Auto) Urine Creatinine Digoxin 02/22/20 02/22/20 02/22/20 05:57 08:06 08:06 WBC RBC Hgb 10.8 L Hct 35.2 L MCHC 31 L RDW 21.8 H MCV 80 L MCH 25 L Lymph % (Auto) [place] % (Auto) [place] # Eos # Lymph # (Auto) [place] # (Auto) Eos # (Auto) Seg Neutrophils % 71.5 H Seg Neuts % (Manual) Baso # (Auto) Lymphocytes % (Manual) Monocytes % (Manual) Eosinophils % (Manual) Basophils % (Manual) Seg Neutrophils # Seg Neutrophils # Man Lymphocytes # (Manual) Monocytes # (Manual) Eosinophils # (Manual) Nucleated RBC % Basophils # (Manual) PT INR APTT Heparin Anti-Xa Level ABG pH POC ABG pO2 ABG pO2 ABG HCO3 ABG O2 Saturation ABG Base Excess POC ABG pCO2 ABG Hemoglobin ABG Oxyhemoglobin ABG Sodium ABG Chloride ABG Glucose Oxyhemoglobin Sodium 146 H Potassium Chloride Carbon Dioxide 34 H BUN 21 H Creatinine 0.4 L Glucose 149 H POC Glucose 138 H Lactic Acid Calcium Phosphorus Magnesium AST ALT Lactate Dehydrogenase Total Bilirubin Direct Bilirubin CK-MB (CK-2) C-Reactive Protein NT-Pro-B Natriuret Pep Total Protein Albumin Arterial Blood Glucose Urine WBC (Auto) Urine Creatinine Digoxin 02/22/20 02/22/20 02/22/20 11:47 17:11 23:25 WBC RBC Hgb Hct MCHC RDW MCV MCH Lymph % (Auto) [place] % (Auto) [place] # Eos # Lymph # (Auto) [place] # (Auto) Eos # (Auto) Seg Neutrophils % Seg Neuts % (Manual) Baso # (Auto) Lymphocytes % (Manual) Monocytes % (Manual) Eosinophils % (Manual) Basophils % (Manual) Seg Neutrophils # Seg Neutrophils # Man Lymphocytes # (Manual) Monocytes # (Manual) Eosinophils # (Manual) Nucleated RBC % Basophils # (Manual) PT INR APTT Heparin Anti-Xa Level ABG pH POC ABG pO2 ABG pO2 ABG HCO3 ABG O2 Saturation ABG Base Excess POC ABG pCO2 ABG Hemoglobin ABG Oxyhemoglobin ABG Sodium ABG Chloride ABG Glucose Oxyhemoglobin Sodium Potassium Chloride Carbon Dioxide BUN Creatinine Glucose POC Glucose 149 H 144 H 142 H Lactic Acid Calcium Phosphorus Magnesium AST ALT Lactate Dehydrogenase Total Bilirubin Direct Bilirubin CK-MB (CK-2) C-Reactive Protein NT-Pro-B Natriuret Pep Total Protein Albumin Arterial Blood Glucose Urine WBC (Auto) Urine Creatinine Digoxin 02/23/20 02/23/20 02/23/20 05:22 11:37 18:14 WBC RBC Hgb Hct MCHC RDW MCV MCH Lymph % (Auto) [place] % (Auto) [place] # Eos # Lymph # (Auto) [place] # (Auto) Eos # (Auto) Seg Neutrophils % Seg Neuts % (Manual) Baso # (Auto) Lymphocytes % (Manual) Monocytes % (Manual) Eosinophils % (Manual) Basophils % (Manual) Seg Neutrophils # Seg Neutrophils # Man Lymphocytes # (Manual) Monocytes # (Manual) Eosinophils # (Manual) Nucleated RBC % Basophils # (Manual) PT INR APTT Heparin Anti-Xa Level ABG pH POC ABG pO2 ABG pO2 ABG HCO3 ABG O2 Saturation ABG Base Excess POC ABG pCO2 ABG Hemoglobin ABG Oxyhemoglobin ABG Sodium ABG Chloride ABG Glucose Oxyhemoglobin Sodium Potassium Chloride Carbon Dioxide BUN Creatinine Glucose POC Glucose 144 H 113 H 127 H Lactic Acid Calcium Phosphorus Magnesium AST ALT Lactate Dehydrogenase Total Bilirubin Direct Bilirubin CK-MB (CK-2) C-Reactive Protein NT-Pro-B Natriuret Pep Total Protein Albumin Arterial Blood Glucose Urine WBC (Auto) Urine Creatinine Digoxin 02/23/20 02/24/20 02/24/20 23:45 05:50 11:24 WBC RBC Hgb Hct MCHC RDW MCV MCH Lymph % (Auto) [place] % (Auto) [place] # Eos # Lymph # (Auto) [place] # (Auto) Eos # (Auto) Seg Neutrophils % Seg Neuts % (Manual) Baso # (Auto) Lymphocytes % (Manual) Monocytes % (Manual) Eosinophils % (Manual) Basophils % (Manual) Seg Neutrophils # Seg Neutrophils # Man Lymphocytes # (Manual) Monocytes # (Manual) Eosinophils # (Manual) Nucleated RBC % Basophils # (Manual) PT INR APTT Heparin Anti-Xa Level ABG pH POC ABG pO2 ABG pO2 ABG HCO3 ABG O2 Saturation ABG Base Excess POC ABG pCO2 ABG Hemoglobin ABG Oxyhemoglobin ABG Sodium ABG Chloride ABG Glucose Oxyhemoglobin Sodium Potassium Chloride Carbon Dioxide BUN Creatinine Glucose POC Glucose 123 H 117 H 126 H Lactic Acid Calcium Phosphorus Magnesium AST ALT Lactate Dehydrogenase Total Bilirubin Direct Bilirubin CK-MB (CK-2) C-Reactive Protein NT-Pro-B Natriuret Pep Total Protein Albumin Arterial Blood Glucose Urine WBC (Auto) Urine Creatinine Digoxin 02/24/20 02/24/20 02/25/20 18:35 23:27 05:20 WBC RBC Hgb Hct MCHC RDW MCV MCH Lymph % (Auto) [place] % (Auto) [place] # Eos # Lymph # (Auto) [place] # (Auto) Eos # (Auto) Seg Neutrophils % Seg Neuts % (Manual) Baso # (Auto) Lymphocytes % (Manual) Monocytes % (Manual) Eosinophils % (Manual) Basophils % (Manual) Seg Neutrophils # Seg Neutrophils # Man Lymphocytes # (Manual) Monocytes # (Manual) Eosinophils # (Manual) Nucleated RBC % Basophils # (Manual) PT INR APTT Heparin Anti-Xa Level ABG pH POC ABG pO2 ABG pO2 ABG HCO3 ABG O2 Saturation ABG Base Excess POC ABG pCO2 ABG Hemoglobin ABG Oxyhemoglobin ABG Sodium ABG Chloride ABG Glucose Oxyhemoglobin Sodium Potassium Chloride Carbon Dioxide BUN Creatinine Glucose POC Glucose 121 H 127 H 133 H Lactic Acid Calcium Phosphorus Magnesium AST ALT Lactate Dehydrogenase Total Bilirubin Direct Bilirubin CK-MB (CK-2) C-Reactive Protein NT-Pro-B Natriuret Pep Total Protein Albumin Arterial Blood Glucose Urine WBC (Auto) Urine Creatinine Digoxin 02/25/20 02/25/20 02/25/20 12:08 17:26 23:33 WBC RBC Hgb Hct MCHC RDW MCV MCH Lymph % (Auto) [place] % (Auto) [place] # Eos # Lymph # (Auto) [place] # (Auto) Eos # (Auto) Seg Neutrophils % Seg Neuts % (Manual) Baso # (Auto) Lymphocytes % (Manual) Monocytes % (Manual) Eosinophils % (Manual) Basophils % (Manual) Seg Neutrophils # Seg Neutrophils # Man Lymphocytes # (Manual) Monocytes # (Manual) Eosinophils # (Manual) Nucleated RBC % Basophils # (Manual) PT INR APTT Heparin Anti-Xa Level ABG pH POC ABG pO2 ABG pO2 ABG HCO3 ABG O2 Saturation ABG Base Excess POC ABG pCO2 ABG Hemoglobin ABG Oxyhemoglobin ABG Sodium ABG Chloride ABG Glucose Oxyhemoglobin Sodium Potassium Chloride Carbon Dioxide BUN Creatinine Glucose POC Glucose 109 H 120 H 120 H Lactic Acid Calcium Phosphorus Magnesium AST ALT Lactate Dehydrogenase Total Bilirubin Direct Bilirubin CK-MB (CK-2) C-Reactive Protein NT-Pro-B Natriuret Pep Total Protein Albumin Arterial Blood Glucose Urine WBC (Auto) Urine Creatinine Digoxin 02/26/20 02/26/20 02/27/20 05:33 07:50 12:13 WBC RBC Hgb Hct MCHC RDW MCV MCH Lymph % (Auto) [place] % (Auto) [place] # Eos # Lymph # (Auto) [place] # (Auto) Eos # (Auto) Seg Neutrophils % Seg Neuts % (Manual) Baso # (Auto) Lymphocytes % (Manual) Monocytes % (Manual) Eosinophils % (Manual) Basophils % (Manual) Seg Neutrophils # Seg Neutrophils # Man Lymphocytes # (Manual) Monocytes # (Manual) Eosinophils # (Manual) Nucleated RBC % Basophils # (Manual) PT INR APTT Heparin Anti-Xa Level ABG pH POC ABG pO2 ABG pO2 ABG HCO3 ABG O2 Saturation ABG Base Excess POC ABG pCO2 ABG Hemoglobin ABG Oxyhemoglobin ABG Sodium ABG Chloride ABG Glucose Oxyhemoglobin Sodium Potassium Chloride Carbon Dioxide BUN Creatinine Glucose POC Glucose 106 H 130 H Lactic Acid Calcium Phosphorus Magnesium AST ALT Lactate Dehydrogenase Total Bilirubin Direct Bilirubin CK-MB (CK-2) C-Reactive Protein NT-Pro-B Natriuret Pep Total Protein Albumin Arterial Blood Glucose Urine WBC (Auto) > 182.0 H Urine Creatinine Digoxin 02/27/20 02/27/20 02/28/20 18:20 23:33 05:01 WBC RBC Hgb Hct MCHC RDW MCV MCH Lymph % (Auto) [place] % (Auto) [place] # Eos # Lymph # (Auto) [place] # (Auto) Eos # (Auto) Seg Neutrophils % Seg Neuts % (Manual) Baso # (Auto) Lymphocytes % (Manual) Monocytes % (Manual) Eosinophils % (Manual) Basophils % (Manual) Seg Neutrophils # Seg Neutrophils # Man Lymphocytes # (Manual) Monocytes # (Manual) Eosinophils # (Manual) Nucleated RBC % Basophils # (Manual) PT INR APTT Heparin Anti-Xa Level ABG pH POC ABG pO2 ABG pO2 ABG HCO3 ABG O2 Saturation ABG Base Excess POC ABG pCO2 ABG Hemoglobin ABG Oxyhemoglobin ABG Sodium ABG Chloride ABG Glucose Oxyhemoglobin Sodium Potassium Chloride Carbon Dioxide BUN Creatinine Glucose POC Glucose 109 H 124 H 134 H Lactic Acid Calcium Phosphorus Magnesium AST ALT Lactate Dehydrogenase Total Bilirubin Direct Bilirubin CK-MB (CK-2) C-Reactive Protein NT-Pro-B Natriuret Pep Total Protein Albumin Arterial Blood Glucose Urine WBC (Auto) Urine Creatinine Digoxin 02/28/20 02/28/20 02/28/20 11:54 18:16 23:03 WBC RBC Hgb Hct MCHC RDW MCV MCH Lymph % (Auto) [place] % (Auto) [place] # Eos # Lymph # (Auto) [place] # (Auto) Eos # (Auto) Seg Neutrophils % Seg Neuts % (Manual) Baso # (Auto) Lymphocytes % (Manual) Monocytes % (Manual) Eosinophils % (Manual) Basophils % (Manual) Seg Neutrophils # Seg Neutrophils # Man Lymphocytes # (Manual) Monocytes # (Manual) Eosinophils # (Manual) Nucleated RBC % Basophils # (Manual) PT INR APTT Heparin Anti-Xa Level ABG pH POC ABG pO2 ABG pO2 ABG HCO3 ABG O2 Saturation ABG Base Excess POC ABG pCO2 ABG Hemoglobin ABG Oxyhemoglobin ABG Sodium ABG Chloride ABG Glucose Oxyhemoglobin Sodium Potassium Chloride Carbon Dioxide BUN Creatinine Glucose POC Glucose 133 H 134 H 146 H Lactic Acid Calcium Phosphorus Magnesium AST ALT Lactate Dehydrogenase Total Bilirubin Direct Bilirubin CK-MB (CK-2) C-Reactive Protein NT-Pro-B Natriuret Pep Total Protein Albumin Arterial Blood Glucose Urine WBC (Auto) Urine Creatinine Digoxin 02/29/20 02/29/20 02/29/20 05:24 11:34 17:12 WBC RBC Hgb Hct MCHC RDW MCV MCH Lymph % (Auto) [place] % (Auto) [place] # Eos # Lymph # (Auto) [place] # (Auto) Eos # (Auto) Seg Neutrophils % Seg Neuts % (Manual) Baso # (Auto) Lymphocytes % (Manual) Monocytes % (Manual) Eosinophils % (Manual) Basophils % (Manual) Seg Neutrophils # Seg Neutrophils # Man Lymphocytes # (Manual) Monocytes # (Manual) Eosinophils # (Manual) Nucleated RBC % Basophils # (Manual) PT INR APTT Heparin Anti-Xa Level ABG pH POC ABG pO2 ABG pO2 ABG HCO3 ABG O2 Saturation ABG Base Excess POC ABG pCO2 ABG Hemoglobin ABG Oxyhemoglobin ABG Sodium ABG Chloride ABG Glucose Oxyhemoglobin Sodium Potassium Chloride Carbon Dioxide BUN Creatinine Glucose POC Glucose 139 H 141 H 157 H Lactic Acid Calcium Phosphorus Magnesium AST ALT Lactate Dehydrogenase Total Bilirubin Direct Bilirubin CK-MB (CK-2) C-Reactive Protein NT-Pro-B Natriuret Pep Total Protein Albumin Arterial Blood Glucose Urine WBC (Auto) Urine Creatinine Digoxin 02/29/20 03/01/20 03/01/20 23:35 06:00 11:53 WBC RBC Hgb Hct MCHC RDW MCV MCH Lymph % (Auto) [place] % (Auto) [place] # Eos # Lymph # (Auto) [place] # (Auto) Eos # (Auto) Seg Neutrophils % Seg Neuts % (Manual) Baso # (Auto) Lymphocytes % (Manual) Monocytes % (Manual) Eosinophils % (Manual) Basophils % (Manual) Seg Neutrophils # Seg Neutrophils # Man Lymphocytes # (Manual) Monocytes # (Manual) Eosinophils # (Manual) Nucleated RBC % Basophils # (Manual) PT INR APTT Heparin Anti-Xa Level ABG pH POC ABG pO2 ABG pO2 ABG HCO3 ABG O2 Saturation ABG Base Excess POC ABG pCO2 ABG Hemoglobin ABG Oxyhemoglobin ABG Sodium ABG Chloride ABG Glucose Oxyhemoglobin Sodium Potassium Chloride Carbon Dioxide BUN Creatinine Glucose POC Glucose 120 H 132 H 136 H Lactic Acid Calcium Phosphorus Magnesium AST ALT Lactate Dehydrogenase Total Bilirubin Direct Bilirubin CK-MB (CK-2) C-Reactive Protein NT-Pro-B Natriuret Pep Total Protein Albumin Arterial Blood Glucose Urine WBC (Auto) Urine Creatinine Digoxin 03/01/20 03/01/20 03/02/20 17:36 23:16 05:12 WBC RBC Hgb Hct MCHC RDW MCV MCH Lymph % (Auto) [place] % (Auto) [place] # Eos # Lymph # (Auto) [place] # (Auto) Eos # (Auto) Seg Neutrophils % Seg Neuts % (Manual) Baso # (Auto) Lymphocytes % (Manual) Monocytes % (Manual) Eosinophils % (Manual) Basophils % (Manual) Seg Neutrophils # Seg Neutrophils # Man Lymphocytes # (Manual) Monocytes # (Manual) Eosinophils # (Manual) Nucleated RBC % Basophils # (Manual) PT INR APTT Heparin Anti-Xa Level ABG pH POC ABG pO2 ABG pO2 ABG HCO3 ABG O2 Saturation ABG Base Excess POC ABG pCO2 ABG Hemoglobin ABG Oxyhemoglobin ABG Sodium ABG Chloride ABG Glucose Oxyhemoglobin Sodium Potassium Chloride Carbon Dioxide BUN Creatinine Glucose POC Glucose 171 H 164 H 176 H Lactic Acid Calcium Phosphorus Magnesium AST ALT Lactate Dehydrogenase Total Bilirubin Direct Bilirubin CK-MB (CK-2) C-Reactive Protein NT-Pro-B Natriuret Pep Total Protein Albumin Arterial Blood Glucose Urine WBC (Auto) Urine Creatinine Digoxin 03/02/20 03/02/20 03/03/20 11:42 18:01 00:06 WBC RBC Hgb Hct MCHC RDW MCV MCH Lymph % (Auto) [place] % (Auto) [place] # Eos # Lymph # (Auto) [place] # (Auto) Eos # (Auto) Seg Neutrophils % Seg Neuts % (Manual) Baso # (Auto) Lymphocytes % (Manual) Monocytes % (Manual) Eosinophils % (Manual) Basophils % (Manual) Seg Neutrophils # Seg Neutrophils # Man Lymphocytes # (Manual) Monocytes # (Manual) Eosinophils # (Manual) Nucleated RBC % Basophils # (Manual) PT INR APTT Heparin Anti-Xa Level ABG pH POC ABG pO2 ABG pO2 ABG HCO3 ABG O2 Saturation ABG Base Excess POC ABG pCO2 ABG Hemoglobin ABG Oxyhemoglobin ABG Sodium ABG Chloride ABG Glucose Oxyhemoglobin Sodium Potassium Chloride Carbon Dioxide BUN Creatinine Glucose POC Glucose 150 H 156 H 156 H Lactic Acid Calcium Phosphorus Magnesium AST ALT Lactate Dehydrogenase Total Bilirubin Direct Bilirubin CK-MB (CK-2) C-Reactive Protein NT-Pro-B Natriuret Pep Total Protein Albumin Arterial Blood Glucose Urine WBC (Auto) Urine Creatinine Digoxin 03/03/20 03/03/20 03/03/20 03:31 11:20 16:55 WBC RBC Hgb Hct MCHC RDW MCV MCH Lymph % (Auto) [place] % (Auto) [place] # Eos # Lymph # (Auto) [place] # (Auto) Eos # (Auto) Seg Neutrophils % Seg Neuts % (Manual) Baso # (Auto) Lymphocytes % (Manual) Monocytes % (Manual) Eosinophils % (Manual) Basophils % (Manual) Seg Neutrophils # Seg Neutrophils # Man Lymphocytes # (Manual) Monocytes # (Manual) Eosinophils # (Manual) Nucleated RBC % Basophils # (Manual) PT INR APTT Heparin Anti-Xa Level ABG pH POC ABG pO2 ABG pO2 ABG HCO3 ABG O2 Saturation ABG Base Excess POC ABG pCO2 ABG Hemoglobin ABG Oxyhemoglobin ABG Sodium ABG Chloride ABG Glucose Oxyhemoglobin Sodium Potassium Chloride Carbon Dioxide BUN Creatinine Glucose POC Glucose 164 H 125 H 211 H Lactic Acid Calcium Phosphorus Magnesium AST ALT Lactate Dehydrogenase Total Bilirubin Direct Bilirubin CK-MB (CK-2) C-Reactive Protein NT-Pro-B Natriuret Pep Total Protein Albumin Arterial Blood Glucose Urine WBC (Auto) Urine Creatinine Digoxin 03/04/20 03/04/20 03/04/20 00:29 05:20 12:09 WBC RBC Hgb Hct MCHC RDW MCV MCH Lymph % (Auto) [place] % (Auto) [place] # Eos # Lymph # (Auto) [place] # (Auto) Eos # (Auto) Seg Neutrophils % Seg Neuts % (Manual) Baso # (Auto) Lymphocytes % (Manual) Monocytes % (Manual) Eosinophils % (Manual) Basophils % (Manual) Seg Neutrophils # Seg Neutrophils # Man Lymphocytes # (Manual) Monocytes # (Manual) Eosinophils # (Manual) Nucleated RBC % Basophils # (Manual) PT INR APTT Heparin Anti-Xa Level ABG pH POC ABG pO2 ABG pO2 ABG HCO3 ABG O2 Saturation ABG Base Excess POC ABG pCO2 ABG Hemoglobin ABG Oxyhemoglobin ABG Sodium ABG Chloride ABG Glucose Oxyhemoglobin Sodium Potassium Chloride Carbon Dioxide BUN Creatinine Glucose POC Glucose 169 H 154 H 197 H Lactic Acid Calcium Phosphorus Magnesium AST ALT Lactate Dehydrogenase Total Bilirubin Direct Bilirubin CK-MB (CK-2) C-Reactive Protein NT-Pro-B Natriuret Pep Total Protein Albumin Arterial Blood Glucose Urine WBC (Auto) Urine Creatinine Digoxin 03/04/20 03/04/20 03/04/20 18:00 20:38 20:38 WBC RBC Hgb 10.1 L Hct 32.7 L MCHC 31 L RDW 24.7 H MCV 79 L MCH 24 L Lymph % (Auto) [place] % (Auto) 8.9 H [place] # Eos # Lymph # (Auto) [place] # (Auto) Eos # (Auto) Seg Neutrophils % Seg Neuts % (Manual) Baso # (Auto) Lymphocytes % (Manual) Monocytes % (Manual) Eosinophils % (Manual) Basophils % (Manual) Seg Neutrophils # Seg Neutrophils # Man Lymphocytes # (Manual) Monocytes # (Manual) Eosinophils # (Manual) Nucleated RBC % Basophils # (Manual) PT INR APTT Heparin Anti-Xa Level ABG pH POC ABG pO2 ABG pO2 ABG HCO3 ABG O2 Saturation ABG Base Excess POC ABG pCO2 ABG Hemoglobin ABG Oxyhemoglobin ABG Sodium ABG Chloride ABG Glucose Oxyhemoglobin Sodium 136 L Potassium Chloride Carbon Dioxide BUN 25 H Creatinine 0.5 L Glucose 148 H POC Glucose 146 H Lactic Acid Calcium Phosphorus Magnesium AST ALT Lactate Dehydrogenase Total Bilirubin Direct Bilirubin CK-MB (CK-2) C-Reactive Protein NT-Pro-B Natriuret Pep Total Protein Albumin Arterial Blood Glucose Urine WBC (Auto) Urine Creatinine Digoxin 03/04/20 03/05/20 03/05/20 23:17 05:44 11:32 WBC RBC Hgb Hct MCHC RDW MCV MCH Lymph % (Auto) [place] % (Auto) [place] # Eos # Lymph # (Auto) [place] # (Auto) Eos # (Auto) Seg Neutrophils % Seg Neuts % (Manual) Baso # (Auto) Lymphocytes % (Manual) Monocytes % (Manual) Eosinophils % (Manual) Basophils % (Manual) Seg Neutrophils # Seg Neutrophils # Man Lymphocytes # (Manual) Monocytes # (Manual) Eosinophils # (Manual) Nucleated RBC % Basophils # (Manual) PT INR APTT Heparin Anti-Xa Level ABG pH POC ABG pO2 ABG pO2 ABG HCO3 ABG O2 Saturation ABG Base Excess POC ABG pCO2 ABG Hemoglobin ABG Oxyhemoglobin ABG Sodium ABG Chloride ABG Glucose Oxyhemoglobin Sodium Potassium Chloride Carbon Dioxide BUN Creatinine Glucose POC Glucose 139 H 155 H 124 H Lactic Acid Calcium Phosphorus Magnesium AST ALT Lactate Dehydrogenase Total Bilirubin Direct Bilirubin CK-MB (CK-2) C-Reactive Protein NT-Pro-B Natriuret Pep Total Protein Albumin Arterial Blood Glucose Urine WBC (Auto) Urine Creatinine Digoxin 03/05/20 03/05/20 03/06/20 17:45 23:18 12:16 WBC RBC Hgb Hct MCHC RDW MCV MCH Lymph % (Auto) [place] % (Auto) [place] # Eos # Lymph # (Auto) [place] # (Auto) Eos # (Auto) Seg Neutrophils % Seg Neuts % (Manual) Baso # (Auto) Lymphocytes % (Manual) Monocytes % (Manual) Eosinophils % (Manual) Basophils % (Manual) Seg Neutrophils # Seg Neutrophils # Man Lymphocytes # (Manual) Monocytes # (Manual) Eosinophils # (Manual) Nucleated RBC % Basophils # (Manual) PT INR APTT Heparin Anti-Xa Level ABG pH POC ABG pO2 ABG pO2 ABG HCO3 ABG O2 Saturation ABG Base Excess POC ABG pCO2 ABG Hemoglobin ABG Oxyhemoglobin ABG Sodium ABG Chloride ABG Glucose Oxyhemoglobin Sodium Potassium Chloride Carbon Dioxide BUN Creatinine Glucose POC Glucose 171 H 114 H 155 H Lactic Acid Calcium Phosphorus Magnesium AST ALT Lactate Dehydrogenase Total Bilirubin Direct Bilirubin CK-MB (CK-2) C-Reactive Protein NT-Pro-B Natriuret Pep Total Protein Albumin Arterial Blood Glucose Urine WBC (Auto) Urine Creatinine Digoxin 03/06/20 03/06/20 03/07/20 17:27 23:48 06:02 WBC RBC Hgb Hct MCHC RDW MCV MCH Lymph % (Auto) [place] % (Auto) [place] # Eos # Lymph # (Auto) [place] # (Auto) Eos # (Auto) Seg Neutrophils % Seg Neuts % (Manual) Baso # (Auto) Lymphocytes % (Manual) Monocytes % (Manual) Eosinophils % (Manual) Basophils % (Manual) Seg Neutrophils # Seg Neutrophils # Man Lymphocytes # (Manual) Monocytes # (Manual) Eosinophils # (Manual) Nucleated RBC % Basophils # (Manual) PT INR APTT Heparin Anti-Xa Level ABG pH POC ABG pO2 ABG pO2 ABG HCO3 ABG O2 Saturation ABG Base Excess POC ABG pCO2 ABG Hemoglobin ABG Oxyhemoglobin ABG Sodium ABG Chloride ABG Glucose Oxyhemoglobin Sodium Potassium Chloride Carbon Dioxide BUN Creatinine Glucose POC Glucose 116 H 142 H 161 H Lactic Acid Calcium Phosphorus Magnesium AST ALT Lactate Dehydrogenase Total Bilirubin Direct Bilirubin CK-MB (CK-2) C-Reactive Protein NT-Pro-B Natriuret Pep Total Protein Albumin Arterial Blood Glucose Urine WBC (Auto) Urine Creatinine Digoxin 03/07/20 03/08/20 03/08/20 11:36 05:18 11:51 WBC RBC Hgb Hct MCHC RDW MCV MCH Lymph % (Auto) [place] % (Auto) [place] # Eos # Lymph # (Auto) [place] # (Auto) Eos # (Auto) Seg Neutrophils % Seg Neuts % (Manual) Baso # (Auto) Lymphocytes % (Manual) Monocytes % (Manual) Eosinophils % (Manual) Basophils % (Manual) Seg Neutrophils # Seg Neutrophils # Man Lymphocytes # (Manual) Monocytes # (Manual) Eosinophils # (Manual) Nucleated RBC % Basophils # (Manual) PT INR APTT Heparin Anti-Xa Level ABG pH POC ABG pO2 ABG pO2 ABG HCO3 ABG O2 Saturation ABG Base Excess POC ABG pCO2 ABG Hemoglobin ABG Oxyhemoglobin ABG Sodium ABG Chloride ABG Glucose Oxyhemoglobin Sodium Potassium Chloride Carbon Dioxide BUN Creatinine Glucose POC Glucose 127 H 142 H 135 H Lactic Acid Calcium Phosphorus Magnesium AST ALT Lactate Dehydrogenase Total Bilirubin Direct Bilirubin CK-MB (CK-2) C-Reactive Protein NT-Pro-B Natriuret Pep Total Protein Albumin Arterial Blood Glucose Urine WBC (Auto) Urine Creatinine Digoxin 03/08/20 03/08/20 03/09/20 18:14 23:45 05:36 WBC RBC Hgb Hct MCHC RDW MCV MCH Lymph % (Auto) [place] % (Auto) [place] # Eos # Lymph # (Auto) [place] # (Auto) Eos # (Auto) Seg Neutrophils % Seg Neuts % (Manual) Baso # (Auto) Lymphocytes % (Manual) Monocytes % (Manual) Eosinophils % (Manual) Basophils % (Manual) Seg Neutrophils # Seg Neutrophils # Man Lymphocytes # (Manual) Monocytes # (Manual) Eosinophils # (Manual) Nucleated RBC % Basophils # (Manual) PT INR APTT Heparin Anti-Xa Level ABG pH POC ABG pO2 ABG pO2 ABG HCO3 ABG O2 Saturation ABG Base Excess POC ABG pCO2 ABG Hemoglobin ABG Oxyhemoglobin ABG Sodium ABG Chloride ABG Glucose Oxyhemoglobin Sodium Potassium Chloride Carbon Dioxide BUN Creatinine Glucose POC Glucose 125 H 143 H 158 H Lactic Acid Calcium Phosphorus Magnesium AST ALT Lactate Dehydrogenase Total Bilirubin Direct Bilirubin CK-MB (CK-2) C-Reactive Protein NT-Pro-B Natriuret Pep Total Protein Albumin Arterial Blood Glucose Urine WBC (Auto) Urine Creatinine Digoxin 03/09/20 03/09/20 03/09/20 06:32 06:32 11:34 WBC RBC Hgb 9.8 L Hct 31.6 L MCHC 31 L RDW 23.1 H MCV 80 L MCH 25 L Lymph % (Auto) 35.1 H [place] % (Auto) 11.4 H [place] # Eos # Lymph # (Auto) [place] # (Auto) Eos # (Auto) Seg Neutrophils % Seg Neuts % (Manual) Baso # (Auto) Lymphocytes % (Manual) Monocytes % (Manual) Eosinophils % (Manual) Basophils % (Manual) Seg Neutrophils # Seg Neutrophils # Man Lymphocytes # (Manual) Monocytes # (Manual) Eosinophils # (Manual) Nucleated RBC % Basophils # (Manual) PT INR APTT Heparin Anti-Xa Level ABG pH POC ABG pO2 ABG pO2 ABG HCO3 ABG O2 Saturation ABG Base Excess POC ABG pCO2 ABG Hemoglobin ABG Oxyhemoglobin ABG Sodium ABG Chloride ABG Glucose Oxyhemoglobin Sodium 136 L Potassium Chloride Carbon Dioxide BUN 25 H Creatinine 0.6 L Glucose 170 H POC Glucose 140 H Lactic Acid Calcium Phosphorus Magnesium AST ALT Lactate Dehydrogenase Total Bilirubin Direct Bilirubin CK-MB (CK-2) C-Reactive Protein NT-Pro-B Natriuret Pep Total Protein Albumin Arterial Blood Glucose Urine WBC (Auto) Urine Creatinine Digoxin 03/09/20 03/09/20 03/10/20 18:10 23:11 05:41 WBC RBC Hgb Hct MCHC RDW MCV MCH Lymph % (Auto) [place] % (Auto) [place] # Eos # Lymph # (Auto) [place] # (Auto) Eos # (Auto) Seg Neutrophils % Seg Neuts % (Manual) Baso # (Auto) Lymphocytes % (Manual) Monocytes % (Manual) Eosinophils % (Manual) Basophils % (Manual) Seg Neutrophils # Seg Neutrophils # Man Lymphocytes # (Manual) Monocytes # (Manual) Eosinophils # (Manual) Nucleated RBC % Basophils # (Manual) PT INR APTT Heparin Anti-Xa Level ABG pH POC ABG pO2 ABG pO2 ABG HCO3 ABG O2 Saturation ABG Base Excess POC ABG pCO2 ABG Hemoglobin ABG Oxyhemoglobin ABG Sodium ABG Chloride ABG Glucose Oxyhemoglobin Sodium Potassium Chloride Carbon Dioxide BUN Creatinine Glucose POC Glucose 153 H 111 H 138 H Lactic Acid Calcium Phosphorus Magnesium AST ALT Lactate Dehydrogenase Total Bilirubin Direct Bilirubin CK-MB (CK-2) C-Reactive Protein NT-Pro-B Natriuret Pep Total Protein Albumin Arterial Blood Glucose Urine WBC (Auto) Urine Creatinine Digoxin 03/10/20 03/10/20 03/10/20 11:15 17:58 23:36 WBC RBC Hgb Hct MCHC RDW MCV MCH Lymph % (Auto) [place] % (Auto) [place] # Eos # Lymph # (Auto) [place] # (Auto) Eos # (Auto) Seg Neutrophils % Seg Neuts % (Manual) Baso # (Auto) Lymphocytes % (Manual) Monocytes % (Manual) Eosinophils % (Manual) Basophils % (Manual) Seg Neutrophils # Seg Neutrophils # Man Lymphocytes # (Manual) Monocytes # (Manual) Eosinophils # (Manual) Nucleated RBC % Basophils # (Manual) PT INR APTT Heparin Anti-Xa Level ABG pH POC ABG pO2 ABG pO2 ABG HCO3 ABG O2 Saturation ABG Base Excess POC ABG pCO2 ABG Hemoglobin ABG Oxyhemoglobin ABG Sodium ABG Chloride ABG Glucose Oxyhemoglobin Sodium Potassium Chloride Carbon Dioxide BUN Creatinine Glucose POC Glucose 141 H 149 H 148 H Lactic Acid Calcium Phosphorus Magnesium AST ALT Lactate Dehydrogenase Total Bilirubin Direct Bilirubin CK-MB (CK-2) C-Reactive Protein NT-Pro-B Natriuret Pep Total Protein Albumin Arterial Blood Glucose Urine WBC (Auto) Urine Creatinine Digoxin 03/11/20 03/11/20 03/12/20 05:55 17:43 04:45 WBC RBC Hgb Hct MCHC RDW MCV MCH Lymph % (Auto) [place] % (Auto) [place] # Eos # Lymph # (Auto) [place] # (Auto) Eos # (Auto) Seg Neutrophils % Seg Neuts % (Manual) Baso # (Auto) Lymphocytes % (Manual) Monocytes % (Manual) Eosinophils % (Manual) Basophils % (Manual) Seg Neutrophils # Seg Neutrophils # Man Lymphocytes # (Manual) Monocytes # (Manual) Eosinophils # (Manual) Nucleated RBC % Basophils # (Manual) PT INR APTT Heparin Anti-Xa Level ABG pH 7.454 H POC ABG pO2 69.2 L ABG pO2 ABG HCO3 ABG O2 Saturation ABG Base Excess POC ABG pCO2 ABG Hemoglobin 11.2 L ABG Oxyhemoglobin ABG Sodium 134.7 L ABG Chloride ABG Glucose 151 H Oxyhemoglobin Sodium Potassium Chloride Carbon Dioxide BUN Creatinine Glucose POC Glucose 181 H 107 H Lactic Acid Calcium Phosphorus Magnesium AST ALT Lactate Dehydrogenase Total Bilirubin Direct Bilirubin CK-MB (CK-2) C-Reactive Protein NT-Pro-B Natriuret Pep Total Protein Albumin Arterial Blood Glucose 151 H Urine WBC (Auto) Urine Creatinine Digoxin 03/12/20 03/12/20 03/12/20 05:36 11:36 17:40 WBC RBC Hgb Hct MCHC RDW MCV MCH Lymph % (Auto) [place] % (Auto) [place] # Eos # Lymph # (Auto) [place] # (Auto) Eos # (Auto) Seg Neutrophils % Seg Neuts % (Manual) Baso # (Auto) Lymphocytes % (Manual) Monocytes % (Manual) Eosinophils % (Manual) Basophils % (Manual) Seg Neutrophils # Seg Neutrophils # Man Lymphocytes # (Manual) Monocytes # (Manual) Eosinophils # (Manual) Nucleated RBC % Basophils # (Manual) PT INR APTT Heparin Anti-Xa Level ABG pH POC ABG pO2 ABG pO2 ABG HCO3 ABG O2 Saturation ABG Base Excess POC ABG pCO2 ABG Hemoglobin ABG Oxyhemoglobin ABG Sodium ABG Chloride ABG Glucose Oxyhemoglobin Sodium Potassium Chloride Carbon Dioxide BUN Creatinine Glucose POC Glucose 137 H 122 H 116 H Lactic Acid Calcium Phosphorus Magnesium AST ALT Lactate Dehydrogenase Total Bilirubin Direct Bilirubin CK-MB (CK-2) C-Reactive Protein NT-Pro-B Natriuret Pep Total Protein Albumin Arterial Blood Glucose Urine WBC (Auto) Urine Creatinine Digoxin 03/12/20 03/13/20 03/13/20 23:17 05:47 11:35 WBC RBC Hgb Hct MCHC RDW MCV MCH Lymph % (Auto) [place] % (Auto) [place] # Eos # Lymph # (Auto) [place] # (Auto) Eos # (Auto) Seg Neutrophils % Seg Neuts % (Manual) Baso # (Auto) Lymphocytes % (Manual) Monocytes % (Manual) Eosinophils % (Manual) Basophils % (Manual) Seg Neutrophils # Seg Neutrophils # Man Lymphocytes # (Manual) Monocytes # (Manual) Eosinophils # (Manual) Nucleated RBC % Basophils # (Manual) PT INR APTT Heparin Anti-Xa Level ABG pH POC ABG pO2 ABG pO2 ABG HCO3 ABG O2 Saturation ABG Base Excess POC ABG pCO2 ABG Hemoglobin ABG Oxyhemoglobin ABG Sodium ABG Chloride ABG Glucose Oxyhemoglobin Sodium Potassium Chloride Carbon Dioxide BUN Creatinine Glucose POC Glucose 118 H 142 H 146 H Lactic Acid Calcium Phosphorus Magnesium AST ALT Lactate Dehydrogenase Total Bilirubin Direct Bilirubin CK-MB (CK-2) C-Reactive Protein NT-Pro-B Natriuret Pep Total Protein Albumin Arterial Blood Glucose Urine WBC (Auto) Urine Creatinine Digoxin 03/13/20 03/13/20 03/14/20 17:25 23:27 05:04 WBC RBC Hgb Hct MCHC RDW MCV MCH Lymph % (Auto) [place] % (Auto) [place] # Eos # Lymph # (Auto) [place] # (Auto) Eos # (Auto) Seg Neutrophils % Seg Neuts % (Manual) Baso # (Auto) Lymphocytes % (Manual) Monocytes % (Manual) Eosinophils % (Manual) Basophils % (Manual) Seg Neutrophils # Seg Neutrophils # Man Lymphocytes # (Manual) Monocytes # (Manual) Eosinophils # (Manual) Nucleated RBC % Basophils # (Manual) PT INR APTT Heparin Anti-Xa Level ABG pH POC ABG pO2 ABG pO2 ABG HCO3 ABG O2 Saturation ABG Base Excess POC ABG pCO2 ABG Hemoglobin ABG Oxyhemoglobin ABG Sodium ABG Chloride ABG Glucose Oxyhemoglobin Sodium Potassium Chloride Carbon Dioxide BUN Creatinine Glucose POC Glucose 138 H 160 H 159 H Lactic Acid Calcium Phosphorus Magnesium AST ALT Lactate Dehydrogenase Total Bilirubin Direct Bilirubin CK-MB (CK-2) C-Reactive Protein NT-Pro-B Natriuret Pep Total Protein Albumin Arterial Blood Glucose Urine WBC (Auto) Urine Creatinine Digoxin 03/14/20 03/14/20 03/15/20 11:19 16:18 00:18 WBC RBC Hgb Hct MCHC RDW MCV MCH Lymph % (Auto) [place] % (Auto) [place] # Eos # Lymph # (Auto) [place] # (Auto) Eos # (Auto) Seg Neutrophils % Seg Neuts % (Manual) Baso # (Auto) Lymphocytes % (Manual) Monocytes % (Manual) Eosinophils % (Manual) Basophils % (Manual) Seg Neutrophils # Seg Neutrophils # Man Lymphocytes # (Manual) Monocytes # (Manual) Eosinophils # (Manual) Nucleated RBC % Basophils # (Manual) PT INR APTT Heparin Anti-Xa Level ABG pH POC ABG pO2 ABG pO2 ABG HCO3 ABG O2 Saturation ABG Base Excess POC ABG pCO2 ABG Hemoglobin ABG Oxyhemoglobin ABG Sodium ABG Chloride ABG Glucose Oxyhemoglobin Sodium Potassium Chloride Carbon Dioxide BUN Creatinine Glucose POC Glucose 130 H 170 H 125 H Lactic Acid Calcium Phosphorus Magnesium AST ALT Lactate Dehydrogenase Total Bilirubin Direct Bilirubin CK-MB (CK-2) C-Reactive Protein NT-Pro-B Natriuret Pep Total Protein Albumin Arterial Blood Glucose Urine WBC (Auto) Urine Creatinine Digoxin 03/15/20 03/15/20 03/15/20 04:05 04:05 05:36 WBC RBC Hgb 10.0 L Hct 31.6 L MCHC RDW 22.4 H MCV 77 L MCH 24 L Lymph % (Auto) 36.2 H [place] % (Auto) 9.4 H [place] # Eos # Lymph # (Auto) [place] # (Auto) Eos # (Auto) Seg Neutrophils % Seg Neuts % (Manual) Baso # (Auto) Lymphocytes % (Manual) Monocytes % (Manual) Eosinophils % (Manual) Basophils % (Manual) Seg Neutrophils # Seg Neutrophils # Man Lymphocytes # (Manual) Monocytes # (Manual) Eosinophils # (Manual) Nucleated RBC % Basophils # (Manual) PT INR APTT Heparin Anti-Xa Level ABG pH POC ABG pO2 ABG pO2 ABG HCO3 ABG O2 Saturation ABG Base Excess POC ABG pCO2 ABG Hemoglobin ABG Oxyhemoglobin ABG Sodium ABG Chloride ABG Glucose Oxyhemoglobin Sodium Potassium Chloride Carbon Dioxide 32 H BUN Creatinine 0.5 L Glucose 141 H POC Glucose 130 H Lactic Acid Calcium Phosphorus Magnesium AST ALT Lactate Dehydrogenase Total Bilirubin Direct Bilirubin CK-MB (CK-2) C-Reactive Protein NT-Pro-B Natriuret Pep Total Protein Albumin Arterial Blood Glucose Urine WBC (Auto) Urine Creatinine Digoxin 03/15/20 03/15/20 03/15/20 11:41 17:38 23:16 WBC RBC Hgb Hct MCHC RDW MCV MCH Lymph % (Auto) [place] % (Auto) [place] # Eos # Lymph # (Auto) [place] # (Auto) Eos # (Auto) Seg Neutrophils % Seg Neuts % (Manual) Baso # (Auto) Lymphocytes % (Manual) Monocytes % (Manual) Eosinophils % (Manual) Basophils % (Manual) Seg Neutrophils # Seg Neutrophils # Man Lymphocytes # (Manual) Monocytes # (Manual) Eosinophils # (Manual) Nucleated RBC % Basophils # (Manual) PT INR APTT Heparin Anti-Xa Level ABG pH POC ABG pO2 ABG pO2 ABG HCO3 ABG O2 Saturation ABG Base Excess POC ABG pCO2 ABG Hemoglobin ABG Oxyhemoglobin ABG Sodium ABG Chloride ABG Glucose Oxyhemoglobin Sodium Potassium Chloride Carbon Dioxide BUN Creatinine Glucose POC Glucose 114 H 144 H 116 H Lactic Acid Calcium Phosphorus Magnesium AST ALT Lactate Dehydrogenase Total Bilirubin Direct Bilirubin CK-MB (CK-2) C-Reactive Protein NT-Pro-B Natriuret Pep Total Protein Albumin Arterial Blood Glucose Urine WBC (Auto) Urine Creatinine Digoxin 03/16/20 03/16/20 03/16/20 05:39 13:16 18:29 WBC RBC Hgb Hct MCHC RDW MCV MCH Lymph % (Auto) [place] % (Auto) [place] # Eos # Lymph # (Auto) [place] # (Auto) Eos # (Auto) Seg Neutrophils % Seg Neuts % (Manual) Baso # (Auto) Lymphocytes % (Manual) Monocytes % (Manual) Eosinophils % (Manual) Basophils % (Manual) Seg Neutrophils # Seg Neutrophils # Man Lymphocytes # (Manual) Monocytes # (Manual) Eosinophils # (Manual) Nucleated RBC % Basophils # (Manual) PT INR APTT Heparin Anti-Xa Level ABG pH POC ABG pO2 ABG pO2 ABG HCO3 ABG O2 Saturation ABG Base Excess POC ABG pCO2 ABG Hemoglobin ABG Oxyhemoglobin ABG Sodium ABG Chloride ABG Glucose Oxyhemoglobin Sodium Potassium Chloride Carbon Dioxide BUN Creatinine Glucose POC Glucose 125 H 153 H 135 H Lactic Acid Calcium Phosphorus Magnesium AST ALT Lactate Dehydrogenase Total Bilirubin Direct Bilirubin CK-MB (CK-2) C-Reactive Protein NT-Pro-B Natriuret Pep Total Protein Albumin Arterial Blood Glucose Urine WBC (Auto) Urine Creatinine Digoxin 03/16/20 03/17/20 03/17/20 23:32 05:50 11:38 WBC RBC Hgb Hct MCHC RDW MCV MCH Lymph % (Auto) [place] % (Auto) [place] # Eos # Lymph # (Auto) [place] # (Auto) Eos # (Auto) Seg Neutrophils % Seg Neuts % (Manual) Baso # (Auto) Lymphocytes % (Manual) Monocytes % (Manual) Eosinophils % (Manual) Basophils % (Manual) Seg Neutrophils # Seg Neutrophils # Man Lymphocytes # (Manual) Monocytes # (Manual) Eosinophils # (Manual) Nucleated RBC % Basophils # (Manual) PT INR APTT Heparin Anti-Xa Level ABG pH POC ABG pO2 ABG pO2 ABG HCO3 ABG O2 Saturation ABG Base Excess POC ABG pCO2 ABG Hemoglobin ABG Oxyhemoglobin ABG Sodium ABG Chloride ABG Glucose Oxyhemoglobin Sodium Potassium Chloride Carbon Dioxide BUN Creatinine Glucose POC Glucose 137 H 160 H 134 H Lactic Acid Calcium Phosphorus Magnesium AST ALT Lactate Dehydrogenase Total Bilirubin Direct Bilirubin CK-MB (CK-2) C-Reactive Protein NT-Pro-B Natriuret Pep Total Protein Albumin Arterial Blood Glucose Urine WBC (Auto) Urine Creatinine Digoxin 03/17/20 03/17/20 03/18/20 16:59 23:29 05:39 WBC RBC Hgb Hct MCHC RDW MCV MCH Lymph % (Auto) [place] % (Auto) [place] # Eos # Lymph # (Auto) [place] # (Auto) Eos # (Auto) Seg Neutrophils % Seg Neuts % (Manual) Baso # (Auto) Lymphocytes % (Manual) Monocytes % (Manual) Eosinophils % (Manual) Basophils % (Manual) Seg Neutrophils # Seg Neutrophils # Man Lymphocytes # (Manual) Monocytes # (Manual) Eosinophils # (Manual) Nucleated RBC % Basophils # (Manual) PT INR APTT Heparin Anti-Xa Level ABG pH POC ABG pO2 ABG pO2 ABG HCO3 ABG O2 Saturation ABG Base Excess POC ABG pCO2 ABG Hemoglobin ABG Oxyhemoglobin ABG Sodium ABG Chloride ABG Glucose Oxyhemoglobin Sodium Potassium Chloride Carbon Dioxide BUN Creatinine Glucose POC Glucose 120 H 141 H 181 H Lactic Acid Calcium Phosphorus Magnesium AST ALT Lactate Dehydrogenase Total Bilirubin Direct Bilirubin CK-MB (CK-2) C-Reactive Protein NT-Pro-B Natriuret Pep Total Protein Albumin Arterial Blood Glucose Urine WBC (Auto) Urine Creatinine Digoxin 03/18/20 03/18/20 03/18/20 11:18 15:34 17:42 WBC RBC Hgb Hct MCHC RDW MCV MCH Lymph % (Auto) [place] % (Auto) [place] # Eos # Lymph # (Auto) [place] # (Auto) Eos # (Auto) Seg Neutrophils % Seg Neuts % (Manual) Baso # (Auto) Lymphocytes % (Manual) Monocytes % (Manual) Eosinophils % (Manual) Basophils % (Manual) Seg Neutrophils # Seg Neutrophils # Man Lymphocytes # (Manual) Monocytes # (Manual) Eosinophils # (Manual) Nucleated RBC % Basophils # (Manual) PT INR APTT Heparin Anti-Xa Level ABG pH POC ABG pO2 ABG pO2 ABG HCO3 ABG O2 Saturation ABG Base Excess POC ABG pCO2 ABG Hemoglobin ABG Oxyhemoglobin ABG Sodium ABG Chloride ABG Glucose Oxyhemoglobin Sodium 132 L Potassium 5.4 H D Chloride 96.8 L Carbon Dioxide BUN 24 H Creatinine 0.6 L Glucose 164 H POC Glucose 142 H 118 H Lactic Acid Calcium Phosphorus Magnesium AST ALT Lactate Dehydrogenase Total Bilirubin Direct Bilirubin CK-MB (CK-2) C-Reactive Protein NT-Pro-B Natriuret Pep Total Protein 6.2 L Albumin 2.8 L Arterial Blood Glucose Urine WBC (Auto) Urine Creatinine Digoxin 03/18/20 03/19/20 03/19/20 23:57 05:40 07:50 WBC RBC Hgb Hct MCHC RDW MCV MCH Lymph % (Auto) [place] % (Auto) [place] # Eos # Lymph # (Auto) [place] # (Auto) Eos # (Auto) Seg Neutrophils % Seg Neuts % (Manual) Baso # (Auto) Lymphocytes % (Manual) Monocytes % (Manual) Eosinophils % (Manual) Basophils % (Manual) Seg Neutrophils # Seg Neutrophils # Man Lymphocytes # (Manual) Monocytes # (Manual) Eosinophils # (Manual) Nucleated RBC % Basophils # (Manual) PT INR APTT Heparin Anti-Xa Level ABG pH POC ABG pO2 ABG pO2 ABG HCO3 ABG O2 Saturation ABG Base Excess POC ABG pCO2 ABG Hemoglobin ABG Oxyhemoglobin ABG Sodium ABG Chloride ABG Glucose Oxyhemoglobin Sodium 136 L Potassium Chloride 97.3 L Carbon Dioxide 31 H BUN 22 H Creatinine 0.5 L Glucose 160 H POC Glucose 127 H 136 H Lactic Acid Calcium Phosphorus Magnesium AST ALT Lactate Dehydrogenase Total Bilirubin Direct Bilirubin CK-MB (CK-2) C-Reactive Protein NT-Pro-B Natriuret Pep Total Protein Albumin Arterial Blood Glucose Urine WBC (Auto) Urine Creatinine Digoxin 03/19/20 03/19/20 03/20/20 12:21 17:27 00:31 WBC RBC Hgb Hct MCHC RDW MCV MCH Lymph % (Auto) [place] % (Auto) [place] # Eos # Lymph # (Auto) [place] # (Auto) Eos # (Auto) Seg Neutrophils % Seg Neuts % (Manual) Baso # (Auto) Lymphocytes % (Manual) Monocytes % (Manual) Eosinophils % (Manual) Basophils % (Manual) Seg Neutrophils # Seg Neutrophils # Man Lymphocytes # (Manual) Monocytes # (Manual) Eosinophils # (Manual) Nucleated RBC % Basophils # (Manual) PT INR APTT Heparin Anti-Xa Level ABG pH POC ABG pO2 ABG pO2 ABG HCO3 ABG O2 Saturation ABG Base Excess POC ABG pCO2 ABG Hemoglobin ABG Oxyhemoglobin ABG Sodium ABG Chloride ABG Glucose Oxyhemoglobin Sodium Potassium Chloride Carbon Dioxide BUN Creatinine Glucose POC Glucose 147 H 152 H 132 H Lactic Acid Calcium Phosphorus Magnesium AST ALT Lactate Dehydrogenase Total Bilirubin Direct Bilirubin CK-MB (CK-2) C-Reactive Protein NT-Pro-B Natriuret Pep Total Protein Albumin Arterial Blood Glucose Urine WBC (Auto) Urine Creatinine Digoxin 03/20/20 03/20/20 03/20/20 05:59 11:45 17:24 WBC RBC Hgb Hct MCHC RDW MCV MCH Lymph % (Auto) [place] % (Auto) [place] # Eos # Lymph # (Auto) [place] # (Auto) Eos # (Auto) Seg Neutrophils % Seg Neuts % (Manual) Baso # (Auto) Lymphocytes % (Manual) Monocytes % (Manual) Eosinophils % (Manual) Basophils % (Manual) Seg Neutrophils # Seg Neutrophils # Man Lymphocytes # (Manual) Monocytes # (Manual) Eosinophils # (Manual) Nucleated RBC % Basophils # (Manual) PT INR APTT Heparin Anti-Xa Level ABG pH POC ABG pO2 ABG pO2 ABG HCO3 ABG O2 Saturation ABG Base Excess POC ABG pCO2 ABG Hemoglobin ABG Oxyhemoglobin ABG Sodium ABG Chloride ABG Glucose Oxyhemoglobin Sodium Potassium Chloride Carbon Dioxide BUN Creatinine Glucose POC Glucose 146 H 142 H 107 H Lactic Acid Calcium Phosphorus Magnesium AST ALT Lactate Dehydrogenase Total Bilirubin Direct Bilirubin CK-MB (CK-2) C-Reactive Protein NT-Pro-B Natriuret Pep Total Protein Albumin Arterial Blood Glucose Urine WBC (Auto) Urine Creatinine Digoxin 03/20/20 03/21/20 03/21/20 23:38 05:38 11:22 WBC RBC Hgb Hct MCHC RDW MCV MCH Lymph % (Auto) [place] % (Auto) [place] # Eos # Lymph # (Auto) [place] # (Auto) Eos # (Auto) Seg Neutrophils % Seg Neuts % (Manual) Baso # (Auto) Lymphocytes % (Manual) Monocytes % (Manual) Eosinophils % (Manual) Basophils % (Manual) Seg Neutrophils # Seg Neutrophils # Man Lymphocytes # (Manual) Monocytes # (Manual) Eosinophils # (Manual) Nucleated RBC % Basophils # (Manual) PT INR APTT Heparin Anti-Xa Level ABG pH POC ABG pO2 ABG pO2 ABG HCO3 ABG O2 Saturation ABG Base Excess POC ABG pCO2 ABG Hemoglobin ABG Oxyhemoglobin ABG Sodium ABG Chloride ABG Glucose Oxyhemoglobin Sodium Potassium Chloride Carbon Dioxide BUN Creatinine Glucose POC Glucose 115 H 133 H 137 H Lactic Acid Calcium Phosphorus Magnesium AST ALT Lactate Dehydrogenase Total Bilirubin Direct Bilirubin CK-MB (CK-2) C-Reactive Protein NT-Pro-B Natriuret Pep Total Protein Albumin Arterial Blood Glucose Urine WBC (Auto) Urine Creatinine Digoxin 03/21/20 03/22/20 03/22/20 18:26 00:10 05:29 WBC RBC Hgb Hct MCHC RDW MCV MCH Lymph % (Auto) [place] % (Auto) [place] # Eos # Lymph # (Auto) [place] # (Auto) Eos # (Auto) Seg Neutrophils % Seg Neuts % (Manual) Baso # (Auto) Lymphocytes % (Manual) Monocytes % (Manual) Eosinophils % (Manual) Basophils % (Manual) Seg Neutrophils # Seg Neutrophils # Man Lymphocytes # (Manual) Monocytes # (Manual) Eosinophils # (Manual) Nucleated RBC % Basophils # (Manual) PT INR APTT Heparin Anti-Xa Level ABG pH POC ABG pO2 ABG pO2 ABG HCO3 ABG O2 Saturation ABG Base Excess POC ABG pCO2 ABG Hemoglobin ABG Oxyhemoglobin ABG Sodium ABG Chloride ABG Glucose Oxyhemoglobin Sodium Potassium Chloride Carbon Dioxide BUN Creatinine Glucose POC Glucose 200 H 123 H 156 H Lactic Acid Calcium Phosphorus Magnesium AST ALT Lactate Dehydrogenase Total Bilirubin Direct Bilirubin CK-MB (CK-2) C-Reactive Protein NT-Pro-B Natriuret Pep Total Protein Albumin Arterial Blood Glucose Urine WBC (Auto) Urine Creatinine Digoxin 03/22/20 03/22/20 03/22/20 06:39 06:39 06:39 WBC RBC Hgb 9.7 L Hct 30.7 L MCHC RDW 22.2 H MCV 77 L MCH 25 L Lymph % (Auto) [place] % (Auto) 9.0 H [place] # Eos # Lymph # (Auto) [place] # (Auto) Eos # (Auto) Seg Neutrophils % Seg Neuts % (Manual) Baso # (Auto) Lymphocytes % (Manual) Monocytes % (Manual) Eosinophils % (Manual) Basophils % (Manual) Seg Neutrophils # Seg Neutrophils # Man Lymphocytes # (Manual) Monocytes # (Manual) Eosinophils # (Manual) Nucleated RBC % Basophils # (Manual) PT INR APTT Heparin Anti-Xa Level ABG pH POC ABG pO2 ABG pO2 ABG HCO3 ABG O2 Saturation ABG Base Excess POC ABG pCO2 ABG Hemoglobin ABG Oxyhemoglobin ABG Sodium ABG Chloride ABG Glucose Oxyhemoglobin Sodium Potassium Chloride Carbon Dioxide 33 H BUN Creatinine 0.5 L Glucose 147 H POC Glucose Lactic Acid Calcium Phosphorus Magnesium AST ALT Lactate Dehydrogenase Total Bilirubin Direct Bilirubin CK-MB (CK-2) C-Reactive Protein NT-Pro-B Natriuret Pep Total Protein Albumin Arterial Blood Glucose Urine WBC (Auto) Urine Creatinine Digoxin 0.8 L 03/22/20 03/22/20 03/22/20 11:22 17:49 23:38 WBC RBC Hgb Hct MCHC RDW MCV MCH Lymph % (Auto) [place] % (Auto) [place] # Eos # Lymph # (Auto) [place] # (Auto) Eos # (Auto) Seg Neutrophils % Seg Neuts % (Manual) Baso # (Auto) Lymphocytes % (Manual) Monocytes % (Manual) Eosinophils % (Manual) Basophils % (Manual) Seg Neutrophils # Seg Neutrophils # Man Lymphocytes # (Manual) Monocytes # (Manual) Eosinophils # (Manual) Nucleated RBC % Basophils # (Manual) PT INR APTT Heparin Anti-Xa Level ABG pH POC ABG pO2 ABG pO2 ABG HCO3 ABG O2 Saturation ABG Base Excess POC ABG pCO2 ABG Hemoglobin ABG Oxyhemoglobin ABG Sodium ABG Chloride ABG Glucose Oxyhemoglobin Sodium Potassium Chloride Carbon Dioxide BUN Creatinine Glucose POC Glucose 159 H 119 H 129 H Lactic Acid Calcium Phosphorus Magnesium AST ALT Lactate Dehydrogenase Total Bilirubin Direct Bilirubin CK-MB (CK-2) C-Reactive Protein NT-Pro-B Natriuret Pep Total Protein Albumin Arterial Blood Glucose Urine WBC (Auto) Urine Creatinine Digoxin 03/23/20 03/23/20 03/23/20 05:02 11:38 17:01 WBC RBC Hgb Hct MCHC RDW MCV MCH Lymph % (Auto) [place] % (Auto) [place] # Eos # Lymph # (Auto) [place] # (Auto) Eos # (Auto) Seg Neutrophils % Seg Neuts % (Manual) Baso # (Auto) Lymphocytes % (Manual) Monocytes % (Manual) Eosinophils % (Manual) Basophils % (Manual) Seg Neutrophils # Seg Neutrophils # Man Lymphocytes # (Manual) Monocytes # (Manual) Eosinophils # (Manual) Nucleated RBC % Basophils # (Manual) PT INR APTT Heparin Anti-Xa Level ABG pH POC ABG pO2 ABG pO2 ABG HCO3 ABG O2 Saturation ABG Base Excess POC ABG pCO2 ABG Hemoglobin ABG Oxyhemoglobin ABG Sodium ABG Chloride ABG Glucose Oxyhemoglobin Sodium Potassium Chloride Carbon Dioxide BUN Creatinine Glucose POC Glucose 136 H 129 H 122 H Lactic Acid Calcium Phosphorus Magnesium AST ALT Lactate Dehydrogenase Total Bilirubin Direct Bilirubin CK-MB (CK-2) C-Reactive Protein NT-Pro-B Natriuret Pep Total Protein Albumin Arterial Blood Glucose Urine WBC (Auto) Urine Creatinine Digoxin 03/23/20 03/24/20 03/24/20 23:35 06:55 11:43 WBC RBC Hgb Hct MCHC RDW MCV MCH Lymph % (Auto) [place] % (Auto) [place] # Eos # Lymph # (Auto) [place] # (Auto) Eos # (Auto) Seg Neutrophils % Seg Neuts % (Manual) Baso # (Auto) Lymphocytes % (Manual) Monocytes % (Manual) Eosinophils % (Manual) Basophils % (Manual) Seg Neutrophils # Seg Neutrophils # Man Lymphocytes # (Manual) Monocytes # (Manual) Eosinophils # (Manual) Nucleated RBC % Basophils # (Manual) PT INR APTT Heparin Anti-Xa Level ABG pH POC ABG pO2 ABG pO2 ABG HCO3 ABG O2 Saturation ABG Base Excess POC ABG pCO2 ABG Hemoglobin ABG Oxyhemoglobin ABG Sodium ABG Chloride ABG Glucose Oxyhemoglobin Sodium Potassium Chloride Carbon Dioxide BUN Creatinine Glucose POC Glucose 115 H 122 H 135 H Lactic Acid Calcium Phosphorus Magnesium AST ALT Lactate Dehydrogenase Total Bilirubin Direct Bilirubin CK-MB (CK-2) C-Reactive Protein NT-Pro-B Natriuret Pep Total Protein Albumin Arterial Blood Glucose Urine WBC (Auto) Urine Creatinine Digoxin 03/24/20 03/24/20 03/25/20 17:18 23:27 05:45 WBC RBC Hgb Hct MCHC RDW MCV MCH Lymph % (Auto) [place] % (Auto) [place] # Eos # Lymph # (Auto) [place] # (Auto) Eos # (Auto) Seg Neutrophils % Seg Neuts % (Manual) Baso # (Auto) Lymphocytes % (Manual) Monocytes % (Manual) Eosinophils % (Manual) Basophils % (Manual) Seg Neutrophils # Seg Neutrophils # Man Lymphocytes # (Manual) Monocytes # (Manual) Eosinophils # (Manual) Nucleated RBC % Basophils # (Manual) PT INR APTT Heparin Anti-Xa Level ABG pH POC ABG pO2 ABG pO2 ABG HCO3 ABG O2 Saturation ABG Base Excess POC ABG pCO2 ABG Hemoglobin ABG Oxyhemoglobin ABG Sodium ABG Chloride ABG Glucose Oxyhemoglobin Sodium Potassium Chloride Carbon Dioxide BUN Creatinine Glucose POC Glucose 125 H 124 H 176 H Lactic Acid Calcium Phosphorus Magnesium AST ALT Lactate Dehydrogenase Total Bilirubin Direct Bilirubin CK-MB (CK-2) C-Reactive Protein NT-Pro-B Natriuret Pep Total Protein Albumin Arterial Blood Glucose Urine WBC (Auto) Urine Creatinine Digoxin 03/25/20 03/25/20 03/26/20 11:15 17:00 00:12 WBC RBC Hgb Hct MCHC RDW MCV MCH Lymph % (Auto) [place] % (Auto) [place] # Eos # Lymph # (Auto) [place] # (Auto) Eos # (Auto) Seg Neutrophils % Seg Neuts % (Manual) Baso # (Auto) Lymphocytes % (Manual) Monocytes % (Manual) Eosinophils % (Manual) Basophils % (Manual) Seg Neutrophils # Seg Neutrophils # Man Lymphocytes # (Manual) Monocytes # (Manual) Eosinophils # (Manual) Nucleated RBC % Basophils # (Manual) PT INR APTT Heparin Anti-Xa Level ABG pH POC ABG pO2 ABG pO2 ABG HCO3 ABG O2 Saturation ABG Base Excess POC ABG pCO2 ABG Hemoglobin ABG Oxyhemoglobin ABG Sodium ABG Chloride ABG Glucose Oxyhemoglobin Sodium Potassium Chloride Carbon Dioxide BUN Creatinine Glucose POC Glucose 147 H 111 H 115 H Lactic Acid Calcium Phosphorus Magnesium AST ALT Lactate Dehydrogenase Total Bilirubin Direct Bilirubin CK-MB (CK-2) C-Reactive Protein NT-Pro-B Natriuret Pep Total Protein Albumin Arterial Blood Glucose Urine WBC (Auto) Urine Creatinine Digoxin 03/26/20 03/26/20 04:20 05:28 WBC RBC Hgb Hct MCHC RDW MCV MCH Lymph % (Auto) [place] % (Auto) [place] # Eos # Lymph # (Auto) [place] # (Auto) Eos # (Auto) Seg Neutrophils % Seg Neuts % (Manual) Baso # (Auto) Lymphocytes % (Manual) Monocytes % (Manual) Eosinophils % (Manual) Basophils % (Manual) Seg Neutrophils # Seg Neutrophils # Man Lymphocytes # (Manual) Monocytes # (Manual) Eosinophils # (Manual) Nucleated RBC % Basophils # (Manual) PT INR APTT Heparin Anti-Xa Level ABG pH POC ABG pO2 ABG pO2 ABG HCO3 ABG O2 Saturation ABG Base Excess POC ABG pCO2 ABG Hemoglobin ABG Oxyhemoglobin ABG Sodium ABG Chloride ABG Glucose Oxyhemoglobin Sodium Potassium Chloride Carbon Dioxide BUN Creatinine 0.6 L Glucose 182 H POC Glucose 158 H Lactic Acid Calcium Phosphorus Magnesium AST ALT Lactate Dehydrogenase Total Bilirubin Direct Bilirubin CK-MB (CK-2) C-Reactive Protein NT-Pro-B Natriuret Pep Total Protein Albumin Arterial Blood Glucose Urine WBC (Auto) Urine Creatinine Digoxin Allied health notes reviewed: nursing
[2020-03-26] MEDS: LIPASE 10,500/PROTEASE 25,000/AMYLASE 43,750 (UNITS) DR CAP FEEDTUBE PRN (14:03)
[2020-03-26] MEDS: DIGOXIN 0.125 MG TAB PO SCH (16:22)
[2020-03-26] MEDS: TAMSULOSIN 0.4 MG CAP PO SCH (21:00)
[2020-03-26] MEDS: ACETAMINOPHEN 325 MG/10.15 ML ORAL LIQD UNIT DOSE FEEDTUBE PRN (21:01)
[2020-03-26] MEDS: POLYETHYLENE GLYCOL 3350 17 GM POWDER PO SCH (21:01)
[2020-03-27] MEDS: INSULIN REGULAR, HUMAN 100 UNIT/ML 3ML VIAL SUB-Q SCH ×5 (01:17→23:27)
[2020-03-27] MEDS: MIDODRINE 5 MG TAB PO SCH ×3 (08:44→17:10)
[2020-03-27] MEDS: GLYCOPYRROLATE 2 MG TAB PO SCH ×3 (08:44→23:22)
[2020-03-27] MEDS: QUEtiapine 100 MG TAB PO SCH ×2 (09:43→23:26)
[2020-03-27] MEDS: DOCUSATE SODIUM 100 MG/10 ML ORAL LIQD FEEDTUBE SCH ×2 (09:44→23:17)
[2020-03-27] MEDS: ALPRAZolam 0.5 MG TAB PO PRN (09:44)
[2020-03-27] MEDS: CLOPIDOGREL 75 MG TAB PO SCH (09:44)
[2020-03-27] MEDS: APIXABAN 5 MG TAB PO SCH ×2 (09:44→23:18)
[2020-03-27] MEDS: LANSOPRAZOLE 30 MG SOLUTAB FEEDTUBE SCH (09:44)
[2020-03-27] MEDS: FUROSEMIDE 20 MG TAB PO SCH (09:45)
[2020-03-27] MEDS: METOPROLOL TARTRATE 25 MG TAB FEEDTUBE SCH ×2 (09:45→23:22)
--- NOTE | 2020-03-27 12:26 | Progress Note ---
Assessment and Plan Assessment and plan: -Intractable nausea; check for residual feeding IV Zofran as needed, supportive care --Acute on chronic hypoxemic respiratory failure; Patient has tracheostomy on vent On CPAP trial Continue nebulizers, , trach care Wean off ventilator as tolerated Pulmonary critical following --Acute exacerbation of COPD; Patient is currently on ventilatory support Continue nebulizers --Left lower lobe PE; Continue Eliquis, ventilatory support --Acute right lower extremity DVT; Patient is on Eliquis --Bilateral multifocal pneumonia/community-acquired Completed antibiotics, improved --Severe sepsis/bilateral pneumonia: Completed antibiotics COVID-19 test; 11/24/2019; negative 11/26/2019; negative 12/29/2019: Negative --Paroxysmal atrial fibrillation; Now rate controlled, Stable on amiodarone and Eliquis --Acute on chronic combined systolic and diastolic congestive heart failure Ischemic cardiomyopathy left ventricular ejection fraction 40 to 45% --H/o CAD [[facility] 12/2018 in-stent restenosis] Patient is stable on current cardiac medications --Hypertensive emergency; present on admission Reasonable blood pressures, continue current antihypertensives As needed medications --History of alcohol abuse/alcohol withdrawal; Was on CIWA protocol, now stable --Oropharyngeal dysphagia; status post PEG placement Continue PEG feeds per protocol --History of partial small bowel obstruction; resolved Surgery evaluated. --Obesity; BMI 34.7 Patient needs weight reduction when medically stable --Severe protein calorie malnutrition/hypoalbuminemia Nutrition supplements, dietitian following, PEG feeds --DVT prophylaxis;Eliquis --Full CODE STATUS 03/19/2020. Continue current vent per pulmonary recommendations. Pressure support ventilation trials as tolerated. Continue trach care, secretion control and airway management. Mobility protocols for pressure ulcer prophylaxis. 03/20/2020. Rate better controlled on digoxin and metoprolol per cardiology. Patient currently off amiodarone due to elevated liver enzymes. Continue anticoagulation with Eliquis. IV metoprolol as needed. No statins for now secondary to elevated liver enzymes. Patient remains on AC mode ventilation rate 12, tidal volume 450, FiO2 30% and PEEP of 6. Cont. PSV as figueroa. Continue trach care, secretion control and airway management. Mobility protocols for pressure ulcer prophylaxis. Patient is uninsured and his only d/c option is to return home with family. 03/21/2020. Patient still with elevated heart rate but better on digoxin and metoprolol per cardiology. Patient currently off amiodarone due to elevated li ian enzymes. Continue anticoagulation with Eliquis. IV metoprolol as needed. No statins for now secondary to elevated liver enzymes. Patient remains on AC mode mechanical ventilation with rate 12, tidal volume 450, FiO2 30% and PEEP of 6. Continue PSV trials as tolerated. Continue trach care, secretion control and airway management. Mobility protocols for pressure ulcer prophylaxis. Patient is uninsured and his only d/c option is to return home with family. 03/22/2020; patient remains on ventilatory support, continue to wean as tolerated, trach care Awaiting LTAC placement, however patient has multiple social issues, mobility protocols blood pressure ulcers DVT prophylaxis, will continue current management 03/23/2020; patient remains on ventilatory support, tracheostomy, on CPAP trial 03/25/2020; patient with tracheostomy remains on ventilatory support, complains of mild nausea 03/26/2020; clinically no change, tracheostomy on vent, unable to wean 03/27/2020; remains on ventilatory support, wean as tolerated, social issues, awaiting placement The high probability of a clinically significant, sudden or life threatening deterioration of the [Respiratory, cardiovascular & neurological] system(s) required my full and direct attention, intervention and personal management. The aggregate critical care time was [35] minutes without overlap. Time includes spent on [x] Data Review and interpretation [x] Patient assessment and monitoring of vital signs [x] Documentation [x] Medication orders and management Plan of care reviewed with the patient and his nurse History Interval history: I Have seen and examined the patient at the bedside patient's chart and medications reviewed Patient tracheostomy remains on ventilatory support No new complaints, Alert and awake Not in acute distress Vital signs noted Hospitalist Physical - Constitutional Vitals: Temp Pulse Resp BP Pulse Ox 97.8 F 108 H 28 H 85/67 100 03/27/20 03:37 03/27/20 09:45 03/27/20 08:46 03/27/20 09:45 03/27/20 08:46 General appearance: Present: no acute distress, well-nourished, other (Tracheostomy on vent) - EENT Eyes: Present: PERRL, EOM intact - Neck Neck: Present: supple, normal ROM - Respiratory Respiratory effort: normal Respiratory: bilateral: diminished, rhonchi, negative: rales, wheezing - Cardiovascular Rhythm: regular Heart Sounds: Present: S1 & S2 - Extremities Extremities: no ischemia, No edema - Abdominal General gastrointestinal: soft, non-tender, non-distended, normal bowel sounds - Integumentary Integumentary: Present: clear, warm - Psychiatric Psychiatric: appropriate mood/affect, cooperative - Neurologic Neurologic: CNII-XII intact, moves all extremities HEART Score - HEART Score Troponin: Troponin T < 0.010 ng/mL (0.00-0.029) 01/19/20 01:35 Results - Labs CBC & Chem 7: 03/22/20 06:39 03/26/20 04:20 Labs: Laboratory Last Values WBC 6.0 K/mm3 (4.5-11.0) 03/22/20 06:39 RBC 3.97 M/mm3 (3.65-5.03) 03/22/20 06:39 Hgb 9.7 gm/dl (11.8-15.2) L 03/22/20 06:39 Hct 30.7 % (35.5-45.6) L 03/22/20 06:39 MCV 77 fl (84-94) L 03/22/20 06:39 MCH 25 pg (28-32) L 03/22/20 06:39 MCHC 32 % (32-34) 03/22/20 06:39 RDW 22.2 % (13.2-15.2) H 03/22/20 06:39 Plt Count 166 K/mm3 (140-440) 03/22/20 06:39 Lymph % (Auto) 32.8 % (13.4-35.0) 03/22/20 06:39 Casey % (Auto) 9.0 % (0.0-7.3) H 03/22/20 06:39 Eos % (Auto) 2.4 % (0.0-4.3) 03/22/20 06:39 Baso % (Auto) 0.3 % (0.0-1.8) 03/22/20 06:39 Lymph # (Auto) 2.0 K/mm3 (1.2-5.4) 03/22/20 06:39 Casey # (Auto) 0.5 K/mm3 (0.0-0.8) 03/22/20 06:39 Eos # (Auto) 0.1 K/mm3 (0.0-0.4) 03/22/20 06:39 Baso # (Auto) 0.0 K/mm3 (0.0-0.1) 03/22/20 06:39 Add Manual Diff Complete 02/15/20 06:59 Total Counted 100 02/15/20 06:59 Seg Neuts % (Manual) 58.0 % (40.0-70.0) 02/15/20 06:59 Band Neutrophils % 0 % 02/15/20 06:59 Seg Neutrophils % 55.5 % (40.0-70.0) 03/22/20 06:39 Lymphocytes % (Manual) 34.0 % (13.4-35.0) 02/15/20 06:59 Reactive Lymphs % (Man) 1.0 % 02/15/20 06:59 Monocytes % (Manual) 4.0 % (0.0-7.3) 02/15/20 06:59 Eosinophils % (Manual) 0 % (0.0-4.3) 02/15/20 06:59 Basophils % (Manual) 2.0 % (0.0-1.8) H 02/15/20 06:59 Metamyelocytes % 1.0 % 02/15/20 06:59 Myelocytes % 0 % 02/15/20 06:59 Promyelocytes % 0 % 02/15/20 06:59 Blast Cells % 0 % 02/15/20 06:59 Nucleated RBC % 1.0 % (0.0-0.9) H 02/15/20 06:59 Seg Neutrophils # Man 5.9 K/mm3 (1.8-7.7) 02/15/20 06:59 Seg Neutrophils # 3.4 K/mm3 (1.8-7.7) 03/22/20 06:39 Band Neutrophils # 0.0 K/mm3 02/15/20 06:59 Lymphocytes # (Manual) 3.5 K/mm3 (1.2-5.4) 02/15/20 06:59 Abs React Lymphs (Man) 0.1 K/mm3 02/15/20 06:59 Monocytes # (Manual) 0.4 K/mm3 (0.0-0.8) 02/15/20 06:59 Eosinophils # (Manual) 0.0 K/mm3 (0.0-0.4) 02/15/20 06:59 Basophils # (Manual) 0.2 K/mm3 (0.0-0.1) H 02/15/20 06:59 Metamyelocytes # 0.1 K/mm3 02/15/20 06:59 Myelocytes # 0.0 K/mm3 02/15/20 06:59 Promyelocytes # 0.0 K/mm3 02/15/20 06:59 Blast Cells # 0.0 K/mm3 02/15/20 06:59 WBC Morphology Not Reportable 02/15/20 06:59 Hypersegmented Neuts Not Reportable 02/15/20 06:59 Hyposegmented Neuts Not Reportable 02/15/20 06:59 Hypogranular Neuts Not Reportable 02/15/20 06:59 Smudge Cells Not Reportable 02/15/20 06:59 Toxic Granulation Not Reportable 02/15/20 06:59 Toxic Vacuolation Not Reportable 02/15/20 06:59 Dohle Bodies Not Reportable 02/15/20 06:59 Pelger-Huet Anomaly Not Reportable 02/15/20 06:59 Hector Rods Not Reportable 02/15/20 06:59 Platelet Estimate Consistent w auto 02/15/20 06:59 Clumped Platelets Not Reportable 02/15/20 06:59 Plt Clumps, EDTA Not Reportable 02/15/20 06:59 Large Platelets Not Reportable 02/15/20 06:59 Giant Platelets Not Reportable 02/15/20 06:59 Platelet Satelliting Not Reportable 02/15/20 06:59 Plt Morphology Comment Giant platelets 02/15/20 06:59 RBC Morphology Not Reportable 02/15/20 06:59 Dimorphic RBCs Not Reportable 02/15/20 06:59 Polychromasia Not Reportable 02/15/20 06:59 Hypochromasia 1+ 02/15/20 06:59 Poikilocytosis Few 02/15/20 06:59 Anisocytosis 1+ 02/15/20 06:59 Microcytosis Not Reportable 02/15/20 06:59 Macrocytosis Not Reportable 02/15/20 06:59 Spherocytes Not Reportable 02/15/20 06:59 Pappenheimer Bodies Not Reportable 02/15/20 06:59 Sickle Cells Not Reportable 02/15/20 06:59 Target Cells 1+ 02/15/20 06:59 Tear Drop Cells Few 02/15/20 06:59 Ovalocytes Not Reportable 02/15/20 06:59 Helmet Cells Not Reportable 02/15/20 06:59 [place] Bodies Not Reportable 02/15/20 06:59 [place] Rings Not Reportable 02/15/20 06:59 [place] Cells Not Reportable 02/15/20 06:59 Bite Cells Not Reportable 02/15/20 06:59 Crenated Cell Not Reportable 02/15/20 06:59 Elliptocytes Few 02/15/20 06:59 Acanthocytes (Spur) Not Reportable 02/15/20 06:59 Rouleaux Not Reportable 02/15/20 06:59 Hemoglobin C Crystals Not Reportable 02/15/20 06:59 Schistocytes Not Reportable 02/15/20 06:59 Malaria parasites Not Reportable 02/15/20 06:59 Clifford Bodies Not Reportable 02/15/20 06:59 Hem Pathologist Commnt No 02/15/20 06:59 PT 27.0 Sec. (12.2-14.9) H 02/07/20 15:03 INR 2.46 (0.87-1.13) H 02/07/20 15:03 APTT 31.5 Sec. (24.2-36.6) 01/22/20 09:58 Heparin Anti-Xa Level 1.34 U.I./ml (0.3-0.7) H 01/22/20 04:45 ABG pH 7.454 (7.320-7.450) H 03/12/20 04:45 POC ABG pCO2 45.6 mmHg (32.0-48.0) 03/12/20 04:45 ABG pCO2 47.8 mm Hg 02/20/20 06:45 POC ABG pO2 69.2 mmHg (83-108) L 03/12/20 04:45 ABG pO2 88.7 mm Hg (80.0-90.0) 02/20/20 06:45 POC ABG HCO3 31.3 03/12/20 04:45 ABG HCO3 33.3 mmol/L (20.0-26.0) H 02/20/20 06:45 ABG O2 Saturation 97.2 % (95.0-99.0) 02/20/20 06:45 ABG O2 Content 13.3 (0.0-44) 02/20/20 06:45 POC ABG Base Excess 6.5 03/12/20 04:45 ABG Base Excess 8.4 mmol/L (-2.0-3.0) H 02/20/20 06:45 ABG Hemoglobin 11.2 (12.0-17.5) L 03/12/20 04:45 ABG Oxyhemoglobin 84 (94-98) L 12/22/19 03:22 ABG Carboxyhemoglobin 2.9 % (0.0-5.0) 02/20/20 06:45 ABG Methemoglobin 0.4 % (0.0-1.5) 02/20/20 06:45 ABG Sodium 134.7 mmol/L (136.0-145.0) L 03/12/20 04:45 ABG Potassium 3.9 mmol/L (3.40-4.50) 03/12/20 04:45 ABG Chloride 98.0 mmol/L (98-107) 03/12/20 04:45 ABG Glucose 151 mg/dL (65-95) H 03/12/20 04:45 Oxyhemoglobin 94.1 % (95.0-99.0) L 02/20/20 06:45 Carboxyhemoglobin 0.7 (0.5-1.5) 12/22/19 03:22 FiO2 30 03/12/20 04:45 Sodium 140 mmol/L (137-145) 03/26/20 04:20 Potassium 4.3 mmol/L (3.6-5.0) 03/26/20 04:20 Chloride 99.3 mmol/L (98-107) 03/26/20 04:20 Carbon Dioxide 26 mmol/L (22-30) D 03/26/20 04:20 Anion Gap 19 mmol/L 03/26/20 04:20 BUN 19 mg/dL (9-20) 03/26/20 04:20 Creatinine 0.6 mg/dL (0.8-1.3) L 03/26/20 04:20 Estimated GFR > 60 ml/min 03/26/20 04:20 BUN/Creatinine Ratio 32 % 03/26/20 04:20 Glucose 182 mg/dL (75-100) H 03/26/20 04:20 POC Glucose 139 mg/dL (70-105) H 03/27/20 11:16 Lactic Acid 1.60 mmol/L (0.7-2.0) 02/03/20 12:49 Ferritin 84.4 ng/mL (30.0-300.0) 11/24/19 04:53 Calcium 8.9 mg/dL (8.4-10.2) 03/26/20 04:20 Phosphorus 4.10 mg/dL (2.5-4.5) 01/31/20 19:24 Magnesium 2.40 mg/dL (1.7-2.3) H 02/10/20 07:40 Total Bilirubin 0.90 mg/dL (0.1-1.2) 03/18/20 15:34 Direct Bilirubin 0.9 mg/dL (0-0.2) H 02/08/20 19:00 Indirect Bilirubin 0.4 mg/dL 02/08/20 19:00 Total Creatine Kinase 141 units/L (55-170) 11/24/19 02:53 CK-MB (CK-2) 4.3 ng/mL (0.0-4.0) H 11/24/19 02:53 AST 23 units/L (5-40) 03/18/20 15:34 CK-MB (CK-2) Rel Index 3.0 (0-4) 11/24/19 02:53 ALT 22 units/L (7-56) 03/18/20 15:34 Alkaline Phosphatase 96 units/L (35-129) 03/18/20 15:34 C-Reactive Protein 8.50 mg/dL (0.00-1.30) H 12/01/19 12:16 Ammonia 35.0 umol/L (25-60) 02/03/20 12:49 Lactate Dehydrogenase 228 units/L (91-180) H 12/19/19 04:45 Troponin T < 0.010 ng/mL (0.00-0.029) 01/19/20 01:35 NT-Pro-B Natriuret Pep 3866 pg/mL (0-900) H 01/01/20 10:40 Total Protein 6.2 g/dL (6.3-8.2) L 03/18/20 15:34 Albumin 2.8 g/dL (3.9-5) L 03/18/20 15:34 Albumin/Globulin Ratio 0.8 % 03/18/20 15:34 Procalcitonin 0.44 ng/mL (<0.15) 02/03/20 12:49 Arterial Blood Glucose 151 mg/dL (65-95) H 03/12/20 04:45 Arterial Blood Ionized Calcium 4.8 mg/dL (4.6-5.3) 03/12/20 04:45 Urine Color Cecy (Yellow) 02/26/20 07:50 Urine Turbidity Clear (Clear) 02/26/20 07:50 Urine pH 5.0 (5.0-7.0) 02/26/20 07:50 Ur Specific [place] 1.025 (1.003-1.030) 02/26/20 07:50 Urine Protein 30 mg/dl mg/dL (Negative) 02/26/20 07:50 Urine Glucose (UA) Neg mg/dL (Negative) 02/26/20 07:50 Urine Ketones Neg mg/dL (Negative) 02/26/20 07:50 Urine Blood Sm (Negative) 02/26/20 07:50 Urine Nitrite Neg (Negative) 02/26/20 07:50 Urine Bilirubin Neg (Negative) 02/26/20 07:50 Urine Urobilinogen 4.0 mg/dL (<2.0) 02/26/20 07:50 Ur Leukocyte Esterase Lg (Negative) 02/26/20 07:50 Urine WBC (Auto) > 182.0 /HPF (0.0-6.0) H 02/26/20 07:50 Urine RBC (Auto) 84.0 /HPF (0.0-6.0) 02/26/20 07:50 U Epithel Cells (Auto) 2.0 /HPF (0-13.0) 12/31/19 18:04 Urine Bacteria (Auto) 4+ /HPF (Negative) 02/26/20 07:50 Urine WBC Clumps 2+ /HPF 02/26/20 07:50 Urine Mucus 1+ /HPF 02/26/20 07:50 Urine Creatinine 57.4 mg/dL (0.1-20.0) H 01/31/20 Unknown Urine Sodium 59 mmol/L 01/31/20 Unknown Vancomycin Trough 14.2 ug/mL (5.0-20.0) 12/13/19 15:01 Digoxin 0.8 ng/mL (0.9-2.0) L 03/22/20 06:39 Coronavirus (PCR) Negative (Negative) 12/29/19 10:07 Hepatitis A IgM Ab Non-reactive (NonReactive) 02/05/20 06:37 Hep Bs Antigen Non-reactive (Negative) 02/05/20 06:37 Hep B Core IgM Ab Non-reactive (NonReactive) 02/05/20 06:37 Hepatitis C Antibody Non-reactive (NonReactive) 02/05/20 06:37 Blood Type O POSITIVE 01/21/20 13:00 Antibody Screen Negative 01/21/20 13:00 - Diagnostic Impressions Diagnostic Impressions: Echocardiogram 11/29/19 07:37 Transthoracic Echocardiogram Indication: CHF BP: 116/72 HR: 33 Conclusions *The study is technically limited due to poor acoustic windows. *Global left ventricular systolic function is normal. *The estimated ejection fraction is 50-55%. *Mild concentric left ventricular hypertrophy is observed. *There is trace of mitral regurgitation. *There is mild tricuspid regurgitation. Findings Procedure Info: The study quality is poor. The study is technically limited due to poor acoustic windows. The study is technically limited due to patient body habitus. Left Ventricle: The left ventricular chamber size is normal. Mild concentric left ventricular hypertrophy is observed. Global left ventricular systolic function is normal. The estimated ejection fraction is 50-55%. Left Atrium: The left atrial chamber size is normal. Right Ventricle: The right ventricular cavity size is normal. Right Atrium: The right atrial cavity size is normal. Aortic Valve: The aortic valve leaflets are moderately thickened. There is trace of aortic regurgitation. There is no evidence of aortic stenosis. Mitral Valve: The mitral valve leaflets are mildly thickened. There is trace of mitral regurgitation. There is no evidence of mitral stenosis. Tricuspid Valve: There is mild tricuspid regurgitation. No pulmonary hypertension is noted. Pulmonic Valve: There is trace pulmonic regurgitation. Pericardium: There is no pericardial effusion. Aorta: There is no dilatation of the aortic root. Venous: The inferior vena cava appears normal in size. Contrast: Definity was used to optimize study. Intravenous contrast was used to enhance endocardial border definition. Measurements Chambers 2D Name Value Normal Range Ao root diameter (2D) 3.4 cm (2 - 3.7) Aortic Valve Name Value Normal Range AV Vmax 0.98 m/sec - AV VTI 16.76 cm - AV peak gradient 3.83 mmHg - AV mean gradient 2.57 mmHg - LVOT diameter 3.11 cm - LVOT Vmax 0.68 m/sec - LVOT VTI 11.52 cm - LVOT peak gradient 1.84 mmHg - LVOT mean gradient 1.27 mmHg - SV LVOT 87.31 ml - MALOU (continuity Vmax) 5.24 cm2 - MALOU (continuity VTI) 5.21 cm2 - Tricuspid Valve Name Value Normal Range IVC diameter 2.24 cm (1.2 - 2.3) Hoffman/IV: Voiding Method Indwelling Catheter IV Catheter Type [Left INT / Saline Lock Antecubital] IV Catheter Type [Right INT / Saline Lock Forearm] IV Catheter Type [Right Hand] Peripheral IV IV Catheter Type [Right Upper INT / Saline Lock arm] IV Catheter Type [Left Upper Mid-line arm] IV Catheter Type [Left Forearm Peripheral IV ] IV Catheter Type [Left Hand] Peripheral IV IV Catheter Type [Left Wrist] INT / Saline Lock IV Catheter Type [Right Peripheral IV Antecubital] Active Medications - Current Medications Current Medications: Generic Name Dose Route Start Last Admin Trade Name Freq PRN Reason Stop Dose Admin Acetaminophen 650 mg 03/12/20 04:29 03/26/20 21:01 Acetaminophen 325 Mg/10.15 Ml Oral Liqd Unit Dose FEEDTUBE 650 mg Q6H PRN Administration Pain, Mild (1-3) Alprazolam 0.5 mg 03/26/20 09:26 03/27/20 09:44 Alprazolam 0.5 Mg Tab PO 0.5 mg TID PRN Administration Anxiety Lipase/Protease/Amylase 1 each 01/09/20 12:01 03/26/20 14:03 Lipase 10,500/Protease 25,000/Amylase 43,750 (Units) Dr Lauren FEEDTUBE 1 each PRN PRN Administration For Clogged Feeding Tube Apixaban 5 mg 01/22/20 22:00 03/27/20 09:44 Apixaban 5 Mg Tab PO 5 mg Q12HR CAR Administration Protocol Atorvastatin Calcium 40 mg 01/20/20 22:00 03/26/20 21:00 Atorvastatin 40 Mg Tab PO 40 mg QHS CAR Administration Clopidogrel Bisulfate 75 mg 01/21/20 06:00 03/27/20 09:44 Clopidogrel 75 Mg Tab PO 75 mg QDAY CAR Administration Dextrose 50 ml 01/31/20 18:51 02/05/20 00:56 D50w (25gm) Syringe IV 50 ml Q30MIN PRN Administration Hypoglycemia Protocol Digoxin 0.125 mg 02/25/20 17:00 03/26/20 16:22 Digoxin 0.125 Mg Tab PO 0.125 mg DAILY@1700 CAR Administration Docusate Sodium 100 mg 02/22/20 10:00 03/27/20 09:44 Docusate Sodium 100 Mg/10 Ml Oral Liqd FEEDTUBE 100 mg BID CAR Administration Furosemide 20 mg 03/26/20 10:00 03/27/20 09:45 Furosemide 20 Mg Tab PO 20 mg QDAY CAR Administration Glycopyrrolate 2 mg 02/24/20 21:00 03/27/20 08:44 Glycopyrrolate 2 Mg Tab PO 2 mg TID CAR Administration Haloperidol Lactate 5 mg 02/10/20 14:20 03/19/20 23:26 Haloperidol Lactate 5 Mg/1 Ml Inj IV 5 mg Q6H PRN Administration Agitation Hydrophilic Ointment 1 applic 01/17/20 15:26 02/24/20 23:20 Lip Therapy Vaseline TP 1 applic DIRECT PRN Administration Dry Lips Insulin Human Regular 0 unit 02/01/20 18:00 03/27/20 12:11 Humulin R SUB-Q Not Given Q6H [facility] Protocol Lansoprazole 30 mg 02/05/20 16:00 03/27/20 09:44 Lansoprazole 30 Mg Solutab FEEDTUBE 30 mg QDAY CAR Administration Metoprolol Tartrate 5 mg 01/11/20 08:00 03/18/20 16:52 Metoprolol Tartrate 5 Mg/5 Ml Inj IV 5 mg Q6H PRN Administration SEE INSTRUCTIONS Metoprolol Tartrate 12.5 mg 02/28/20 12:00 03/27/20 09:45 Metoprolol FEEDTUBE Not Given BID [facility] Midodrine 15 mg 02/04/20 16:00 03/27/20 08:44 Midodrine 5 Mg Tab PO 15 mg TID@0800,1200,1600 CRA Administration Morphine Sulfate 2 mg 01/06/20 15:41 03/25/20 08:29 Morphine 2 Mg/1 Ml Inj IV 2 mg Q4H PRN Administration Pain, Moderate (4-6) Multi-Ingred Cream/Lotion/Oil/Oint 1 applic 02/01/20 15:52 Artificial Tears Ophth Oint OU Q4HR PRN Dry Eye(s) Nitroglycerin 0.4 mg 01/19/20 21:09 01/20/20 03:03 Nitroglycerin 0.4 Mg Tab Subl SL 0.4 mg .Q5MIN PRN Administration Chest Pain Ondansetron HCl 4 mg 03/25/20 08:01 03/26/20 21:21 Ondansetron 4 Mg/2 Ml Inj IV 4 mg Q4H PRN Administration Nausea And Vomiting Polyethylene Glycol 17 gm 12/04/19 22:00 03/26/20 21:01 Miralax 3350 PO 17 gm QHS CAR Administration Quetiapine Fumarate 300 mg 01/13/20 22:00 03/27/20 09:43 Quetiapine 100 Mg Tab PO 300 mg BID CAR Administration Simple Syrup 15 ml 01/09/20 12:01 Simple Syrup 15 Ml FEEDTUBE PRN PRN Hypoglycemia Simple Syrup 30 ml 01/09/20 12:01 Simple Syrup 15 Ml FEEDTUBE PRN PRN Hypoglycemia Sodium Bicarbonate 325 mg 01/09/20 12:01 03/07/20 12:56 Sodium Bicarbonate 325 Mg Tab FEEDTUBE 325 mg PRN PRN Administration For Clogged Feeding Tube Sodium Chloride 10 ml 11/24/19 10:00 03/27/20 09:46 Sodium Chloride 0.9% 10 Ml Flush Syringe IV 10 ml BID CAR Administration Tamsulosin HCl 0.8 mg 12/20/19 22:00 03/26/20 21:00 Tamsulosin 0.4 Mg Cap PO 0.8 mg QHS CAR Administration Nutrition/Malnutrition Assess - Dietary Evaluation Nutrition/Malnutrition Findings: Nutrition Notes Start: 11/24/19 12:22 Freq: Status: Active Protocol: Document 03/22/20 11:05 LM (Rec: 03/22/20 11:10 LM [id number]) Nutrition Notes Initial or Follow up Reassessment Current Diagnosis Coronary Artery Disease,Heart Failure,Respiratory Failure, Stroke,Hyperlipidemia Other Pertinent Diagnosis pneumonia Current Diet Osmolite 1.5 at 65ml/hr Labs/Tests Reviewed Pertinent Medications Humulin Height 6 ft 2 in Weight 130.5 kg [place] Body Weight (kg) 86.36 BMI 36.9 Weight change and time frame Wt change noted. Pt with edema . Weight Status Obese Subjective/Other Information TF running at 55ml/hr. Per RN pt tolerates TF at lower rate and pt vomits when rate is at 65ml/hr. Percent of energy/protein needs met: 95%/48% Burn Absent Trauma Absent GI Symptoms None Current % PO Negligible Minimum of two criteria Yes Muscle Mass Mild Depletion (non-severe) Fluid Accumulation Mild (non-severe) Reduced Operations Liaison Strength Measurably Reduced (severe) #2 Nutrition Diagnosis Malnutrition Diagnosis Progress(for reassessment Continues documentation) #1 Nutrition Diagnosis Inadequate oral intake Diagnosis Progress(for reassessment Continues documentation) Is patient on ventilator? Yes Is Patient Ambulatory and/or Out of Bed No REE-([facility]-confined to bed) 2608.188 Kcal/Kg value to use for calculation 16 Approximate Energy Requirements Using 2088 kcal/Kg Calculation Used for Recommendations Kcal/kg Additional Notes Protein needs are 173g ( greater than 2g/kg IBW) Fluid needs are 1 ml/kcal Nutrition Intervention Change Diet Order: Continue TF via PEG Nutrition Support: Osmolite 1.5 at 65 ml/hr. Flush 200 ml q4h. Kcal 2,340 Protein (gm) 98 Fluid (mL) 1,189 Goal #1 Meet at least 75% of pt's energy and protein needs via TF Goal #2 TF tolerance Anticipated Discharge Needs: unable to determine at this time Follow-Up By: 03/28/20 Additional Comments F/U for TF tolerance
--- NOTE | 2020-03-27 15:00 | Progress Note ---
Assessment and Plan Patient sleeping at this time. Patient undergoing spontaneous breathing trial with pressure support of 16, FIO2 30%, PEEP 6 and O2 saturation running 100%. Patients blood pressure running slightly low. Patient also tachycardic. Otherwise patient tolerating present ventilator settings good. Patient afebrile. No leukocytosis. Chest xray done 03/10/20reported Mild CHF. Patient is on Apixaban and prevacid. Continue spontaneous breathing trials as tolerated. Repeating chest xray. - Patient Problems (1) Acute respiratory failure Current Visit: Yes Status: Acute Plan to address problem: Patient is on mechanical ventilation Pressure support 16, FIO2 30%, PEEP 6. Albuterol/atrovent aerosol treatments. Continue apixaban Continue prevacid. Continue spontaneous breathing trials. (2) COPD exacerbation Current Visit: No Status: Acute Plan to address problem: Patient is on mechanical ventilation Pressure support 16, FIO2 30%, PEEP 6. Albuterol/atrovent aerosol treatments. Continue apixaban Continue prevacid. Continue spontaneous breathing trials. (3) Bilateral pneumonia Current Visit: Yes Status: Acute Plan to address problem: Chest xray 03/10/20 reported CHF Patient afebrile. No leukocytosis. Repeating chest xray. (4) CHF exacerbation Current Visit: Yes Status: Acute Plan to address problem: Management as per cardiology. (5) Cardiomyopathy Current Visit: Yes Status: Acute Plan to address problem: Management as per cardiology. (6) Pancreatic lesion Current Visit: Yes Status: Acute Plan to address problem: Management as per primary care. (7) Paroxysmal atrial fibrillation Current Visit: Yes Status: Acute Plan to address problem: Patient is on apixaban. Management as per cardiology. (8) CVA (cerebral vascular accident) Current Visit: No Status: Acute Qualifiers: Precerebral and cerebral artery: middle cerebral artery Laterality of affected vessel: right Plan to address problem: Management as per primary care. (9) Cocaine dependence Current Visit: No Status: Acute Plan to address problem: Management as per primary care. (10) HTN (hypertension) Current Visit: No Status: Acute Qualifiers: Hypertension type: essential hypertension Qualified Code(s): I10 - Essential (primary) hypertension Plan to address problem: Management as per primary care. (11) Nicotine dependence Current Visit: No Status: Acute Qualifiers: Nicotine product type: cigarettes Substance use status: in withdrawal Q ualified Code(s): F17.213 - Nicotine dependence, cigarettes, with withdrawal Plan to address problem: Counseled to stop smoking. (12) Obesity hypoventilation syndrome Current Visit: No Status: Acute Plan to address problem: Patient S/P tracheostomy and on mechanical ventilation. Subjective Date of service: 03/27/20 Principal diagnosis: Ac hypoxemic resp failure; Pneumonia; PUI COVID-19; CHF; CO PD; HTN Interval history: Patient sleeping at this time. Patient undergoing spontaneous breathing trial with pressure support of 16, FIO2 30%, PEEP 6 and O2 saturation running 100%. Patients blood pressure running slightly low. Patient also tachycardic. Otherwise patient tolerating present ventilator settings good. Patient afebrile. No leukocytosis. Chest xray done 03/10/20reported Mild CHF. Patient is on Apixaban and prevacid. Continue spontaneous breathing trials as tolerated. Repeating chest xray. Objective Vital Signs - 12hr 03/27/20 03/27/20 03/27/20 03:00 03:30 03:37 Temperature 97.8 F Pulse Rate 109 H 132 H Pulse Rate [ From Monitor] Respiratory 19 21 Rate Respiratory Rate [ Generalized] Blood Pressure 88/64 98/77 O2 Sat by Pulse 100 99 Oximetry 03/27/20 03/27/20 03/27/20 04:00 04:04 04:30 Temperature Pulse Rate 127 H 128 H Pulse Rate [ From Monitor] Respiratory 26 H Rate Respiratory 22 Rate [ Generalized] Blood Pressure 98/77 98/77 O2 Sat by Pulse 98 95 Oximetry 03/27/20 03/27/20 03/27/20 04:49 05:00 05:30 Temperature Pulse Rate 122 H 129 H 124 H Pulse Rate [ From Monitor] Respiratory 21 23 Rate Respiratory Rate [ Generalized] Blood Pressure 89/68 89/68 95/66 O2 Sat by Pulse 100 100 98 Oximetry 03/27/20 03/27/20 03/27/20 06:00 06:30 07:00 Temperature Pulse Rate 110 H 115 H 124 H Pulse Rate [ From Monitor] Respiratory 20 22 23 Rate Respiratory Rate [ Generalized] Blood Pressure 88/64 88/64 85/60 O2 Sat by Pulse 100 100 100 Oximetry 03/27/20 03/27/20 03/27/20 07:30 08:00 08:30 Temperature Pulse Rate 114 H 120 H 107 H Pulse Rate [ 117 H From Monitor] Respiratory 20 16 21 Rate Respiratory Rate [ Generalized] Blood Pressure 85/60 83/65 O2 Sat by Pulse 100 99 98 Oximetry 03/27/20 03/27/20 03/27/20 08:46 09:00 09:30 Temperature Pulse Rate 106 H 108 H 101 H Pulse Rate [ From Monitor] Respiratory 28 H 21 21 Rate Respiratory Rate [ Generalized] Blood Pressure 86/63 86/60 85/67 O2 Sat by Pulse 100 98 98 Oximetry 03/27/20 03/27/20 03/27/20 09:45 10:00 10:30 Temperature Pulse Rate 108 H 112 H 120 H Pulse Rate [ From Monitor] Respiratory 20 24 Rate Respiratory Rate [ Generalized] Blood Pressure 85/67 88/68 88/68 O2 Sat by Pulse 98 100 Oximetry 03/27/20 03/27/20 03/27/20 11:00 11:21 11:30 Temperature Pulse Rate 118 H 114 H 108 H Pulse Rate [ From Monitor] Respiratory 19 18 14 Rate Respiratory Rate [ Generalized] Blood Pressure 95/67 103/68 86/60 O2 Sat by Pulse 100 100 100 Oximetry 03/27/20 03/27/20 03/27/20 12:00 12:30 13:00 Temperature 97.0 F L Pulse Rate 94 H 109 H 119 H Pulse Rate [ From Monitor] Respiratory 21 22 23 Rate Respiratory Rate [ Generalized] Blood Pressure 85/62 85/62 88/67 O2 Sat by Pulse 100 100 100 Oximetry 03/27/20 03/27/20 03/27/20 13:30 14:00 14:30 Temperature Pulse Rate 114 H 113 H 104 H Pulse Rate [ From Monitor] Respiratory 21 19 24 Rate Respiratory Rate [ Generalized] Blood Pressure 91/63 82/62 90/65 O2 Sat by Pulse 99 100 100 Oximetry 03/27/20 14:31 Temperature Pulse Rate 117 H Pulse Rate [ From Monitor] Respiratory 21 Rate Respiratory Rate [ Generalized] Blood Pressure 90/65 O2 Sat by Pulse 100 Oximetry Constitutional: no acute distress, asleep, other (elderly and obese male, normocephalic with mildly increased respiratory effort at rest) Eyes: non-icteric ENT: oropharynx moist, other (+ midline tracheostomy) Neck: supple, no JVD Effort: mildly labored Ascultation: Bilateral: diminished breath sounds, rhonchi (scant), other (tr acheal secretions ) Percussion: Bilateral: not dull Cardiovascular: irregular rhythm Gastrointestinal: normoactive bowel sounds, soft, non-tender, non-distended (protuberant), other (protuberant; PEG in place) Integumentary: normal Extremities: no cyanosis, pulses normal, no ischemia or petechiae, edema (2+) Neurologic: non-focal exam (grossly; moves extremities), pupils equal and round, unable to assess Psychiatric: mood appropriate, affect normal CBC and BMP: 03/22/20 06:39 03/26/20 04:20 ABG, PT/INR, D-dimer: ABG ABG pH 7.454 (7.320-7.450) H 03/12/20 04:45 POC ABG pCO2 45.6 mmHg (32.0-48.0) 03/12/20 04:45 ABG pCO2 47.8 mm Hg 02/20/20 06:45 POC ABG pO2 69.2 mmHg (83-108) L 03/12/20 04:45 ABG pO2 88.7 mm Hg (80.0-90.0) 02/20/20 06:45 POC ABG HCO3 31.3 03/12/20 04:45 ABG O2 Saturation 97.2 % (95.0-99.0) 02/20/20 06:45 PT/INR, D-dimer PT 27.0 Sec. (12.2-14.9) H 02/07/20 15:03 INR 2.46 (0.87-1.13) H 02/07/20 15:03 Abnormal lab findings: Abnormal Labs 11/24/19 11/24/19 11/24/19 02:53 02:53 03:45 WBC 14.3 H RBC Hgb Hct MCHC RDW 17.2 H MCV MCH Lymph % (Auto) [place] % (Auto) [place] # Eos # Lymph # (Auto) [place] # (Auto) Eos # (Auto) Seg Neutrophils % Seg Neuts % (Manual) Baso # (Auto) Lymphocytes % (Manual) Monocytes % (Manual) Eosinophils % (Manual) Basophils % (Manual) Seg Neutrophils # Seg Neutrophils # Man 8.3 H Lymphocytes # (Manual) Monocytes # (Manual) 0.9 H Eosinophils # (Manual) Nucleated RBC % Basophils # (Manual) PT INR APTT Heparin Anti-Xa Level ABG pH 7.313 L POC ABG pO2 ABG pO2 102.8 H ABG HCO3 ABG O2 Saturation ABG Base Excess -2.9 L POC ABG pCO2 ABG Hemoglobin ABG Oxyhemoglobin ABG Sodium ABG Chloride ABG Glucose Oxyhemoglobin 93.9 L Sodium Potassium Chloride Carbon Dioxide BUN Creatinine Glucose 195 H POC Glucose Lactic Acid Calcium Phosphorus Magnesium AST ALT Lactate Dehydrogenase Total Bilirubin Direct Bilirubin CK-MB (CK-2) 4.3 H C-Reactive Protein NT-Pro-B Natriuret Pep 1181 H Total Protein Albumin Arterial Blood Glucose Urine WBC (Auto) Urine Creatinine Digoxin 11/24/19 11/24/19 11/24/19 04:53 04:53 10:37 WBC RBC Hgb Hct MCHC RDW MCV MCH Lymph % (Auto) [place] % (Auto) [place] # Eos # Lymph # (Auto) [place] # (Auto) Eos # (Auto) Seg Neutrophils % Seg Neuts % (Manual) Baso # (Auto) Lymphocytes % (Manual) Monocytes % (Manual) Eosinophils % (Manual) Basophils % (Manual) Seg Neutrophils # Seg Neutrophils # Man Lymphocytes # (Manual) Monocytes # (Manual) Eosinophils # (Manual) Nucleated RBC % Basophils # (Manual) PT INR APTT Heparin Anti-Xa Level ABG pH POC ABG pO2 ABG pO2 ABG HCO3 ABG O2 Saturation ABG Base Excess POC ABG pCO2 ABG Hemoglobin ABG Oxyhemoglobin ABG Sodium ABG Chloride ABG Glucose Oxyhemoglobin Sodium Potassium Chloride Carbon Dioxide BUN Creatinine Glucose 162 H POC Glucose Lactic Acid 2.40 H* 2.50 H* Calcium Phosphorus Magnesium AST ALT Lactate Dehydrogenase 240 H Total Bilirubin Direct Bilirubin CK-MB (CK-2) C-Reactive Protein NT-Pro-B Natriuret Pep Total Protein Albumin Arterial Blood Glucose Urine WBC (Auto) Urine Creatinine Digoxin 11/24/19 11/24/19 11/24/19 12:21 14:50 19:54 WBC RBC Hgb Hct MCHC RDW MCV MCH Lymph % (Auto) [place] % (Auto) [place] # Eos # Lymph # (Auto) [place] # (Auto) Eos # (Auto) Seg Neutrophils % Seg Neuts % (Manual) Baso # (Auto) Lymphocytes % (Manual) Monocytes % (Manual) Eosinophils % (Manual) Basophils % (Manual) Seg Neutrophils # Seg Neutrophils # Man Lymphocytes # (Manual) Monocytes # (Manual) Eosinophils # (Manual) Nucleated RBC % Basophils # (Manual) PT INR APTT Heparin Anti-Xa Level ABG pH POC ABG pO2 ABG pO2 ABG HCO3 ABG O2 Saturation ABG Base Excess POC ABG pCO2 ABG Hemoglobin ABG Oxyhemoglobin ABG Sodium ABG Chloride ABG Glucose Oxyhemoglobin Sodium Potassium Chloride Carbon Dioxide BUN Creatinine Glucose POC Glucose 145 H 143 H 124 H Lactic Acid Calcium Phosphorus Magnesium AST ALT Lactate Dehydrogenase Total Bilirubin Direct Bilirubin CK-MB (CK-2) C-Reactive Protein NT-Pro-B Natriuret Pep Total Protein Albumin Arterial Blood Glucose Urine WBC (Auto) Urine Creatinine Digoxin 11/25/19 11/25/19 11/25/19 00:18 03:18 05:11 WBC 13.7 H RBC Hgb Hct MCHC RDW 17.1 H MCV MCH Lymph % (Auto) 10.8 L [place] % (Auto) 8.7 H [place] # 1.2 H Eos # Lymph # (Auto) [place] # (Auto) Eos # (Auto) Seg Neutrophils % 80.2 H Seg Neuts % (Manual) Baso # (Auto) Lymphocytes % (Manual) Monocytes % (Manual) Eosinophils % (Manual) Basophils % (Manual) Seg Neutrophils # 11.0 H Seg Neutrophils # Man Lymphocytes # (Manual) Monocytes # (Manual) Eosinophils # (Manual) Nucleated RBC % Basophils # (Manual) PT INR APTT Heparin Anti-Xa Level ABG pH 7.333 L POC ABG pO2 ABG pO2 61.2 L ABG HCO3 ABG O2 Saturation 90.2 L ABG Base Excess POC ABG pCO2 ABG Hemoglobin 13.7 L ABG Oxyhemoglobin ABG Sodium ABG Chloride ABG Glucose Oxyhemoglobin 88.2 L Sodium Potassium Chloride Carbon Dioxide BUN Creatinine Glucose POC Glucose 109 H Lactic Acid Calcium Phosphorus Magnesium AST ALT Lactate Dehydrogenase Total Bilirubin Direct Bilirubin CK-MB (CK-2) C-Reactive Protein NT-Pro-B Natriuret Pep Total Protein Albumin Arterial Blood Glucose Urine WBC (Auto) Urine Creatinine Digoxin 11/25/19 11/25/19 11/26/19 05:11 11:40 03:12 WBC RBC Hgb Hct MCHC RDW MCV MCH Lymph % (Auto) [place] % (Auto) [place] # Eos # Lymph # (Auto) [place] # (Auto) Eos # (Auto) Seg Neutrophils % Seg Neuts % (Manual) Baso # (Auto) Lymphocytes % (Manual) Monocytes % (Manual) Eosinophils % (Manual) Basophils % (Manual) Seg Neutrophils # Seg Neutrophils # Man Lymphocytes # (Manual) Monocytes # (Manual) Eosinophils # (Manual) Nucleated RBC % Basophils # (Manual) PT INR APTT Heparin Anti-Xa Level ABG pH POC ABG pO2 ABG pO2 155.1 H ABG HCO3 27.8 H ABG O2 Saturation ABG Base Excess POC ABG pCO2 ABG Hemoglobin 12.2 L ABG Oxyhemoglobin ABG Sodium ABG Chloride ABG Glucose Oxyhemoglobin Sodium Potassium Chloride Carbon Dioxide BUN 23 H Creatinine Glucose 110 H POC Glucose 108 H Lactic Acid Calcium Phosphorus Magnesium AST ALT Lactate Dehydrogenase Total Bilirubin Direct Bilirubin CK-MB (CK-2) C-Reactive Protein NT-Pro-B Natriuret Pep Total Protein Albumin Arterial Blood Glucose Urine WBC (Auto) Urine Creatinine Digoxin 11/26/19 11/26/19 11/26/19 06:17 10:43 10:43 WBC 11.4 H RBC Hgb Hct MCHC RDW 17.1 H MCV MCH Lymph % (Auto) [place] % (Auto) [place] # Eos # Lymph # (Auto) [place] # (Auto) Eos # (Auto) Seg Neutrophils % Seg Neuts % (Manual) Baso # (Auto) Lymphocytes % (Manual) Monocytes % (Manual) Eosinophils % (Manual) Basophils % (Manual) Seg Neutrophils # Seg Neutrophils # Man Lymphocytes # (Manual) Monocytes # (Manual) Eosinophils # (Manual) Nucleated RBC % Basophils # (Manual) PT INR APTT Heparin Anti-Xa Level ABG pH POC ABG pO2 ABG pO2 ABG HCO3 ABG O2 Saturation ABG Base Excess POC ABG pCO2 ABG Hemoglobin ABG Oxyhemoglobin ABG Sodium ABG Chloride ABG Glucose Oxyhemoglobin Sodium Potassium Chloride Carbon Dioxide BUN 29 H Creatinine Glucose POC Glucose 107 H Lactic Acid Calcium Phosphorus Magnesium AST ALT Lactate Dehydrogenase Total Bilirubin Direct Bilirubin CK-MB (CK-2) C-Reactive Protein NT-Pro-B Natriuret Pep Total Protein Albumin Arterial Blood Glucose Urine WBC (Auto) Urine Creatinine Digoxin 11/26/19 11/27/19 11/27/19 17:11 01:53 04:11 WBC RBC Hgb Hct MCHC RDW MCV MCH Lymph % (Auto) [place] % (Auto) [place] # Eos # Lymph # (Auto) [place] # (Auto) Eos # (Auto) Seg Neutrophils % Seg Neuts % (Manual) Baso # (Auto) Lymphocytes % (Manual) Monocytes % (Manual) Eosinophils % (Manual) Basophils % (Manual) Seg Neutrophils # Seg Neutrophils # Man Lymphocytes # (Manual) Monocytes # (Manual) Eosinophils # (Manual) Nucleated RBC % Basophils # (Manual) PT INR APTT Heparin Anti-Xa Level ABG pH POC ABG pO2 ABG pO2 ABG HCO3 29.2 H ABG O2 Saturation ABG Base Excess 3.4 H POC ABG pCO2 ABG Hemoglobin 13.3 L ABG Oxyhemoglobin ABG Sodium ABG Chloride ABG Glucose Oxyhemoglobin 94.5 L Sodium Potassium Chloride Carbon Dioxide BUN Creatinine Glucose POC Glucose 113 H 108 H Lactic Acid Calcium Phosphorus Magnesium AST ALT Lactate Dehydrogenase Total Bilirubin Direct Bilirubin CK-MB (CK-2) C-Reactive Protein NT-Pro-B Natriuret Pep Total Protein Albumin Arterial Blood Glucose Urine WBC (Auto) Urine Creatinine Digoxin 11/27/19 11/28/19 11/28/19 05:27 05:00 05:25 WBC RBC Hgb Hct MCHC RDW MCV MCH Lymph % (Auto) [place] % (Auto) [place] # Eos # Lymph # (Auto) [place] # (Auto) Eos # (Auto) Seg Neutrophils % Seg Neuts % (Manual) Baso # (Auto) Lymphocytes % (Manual) Monocytes % (Manual) Eosinophils % (Manual) Basophils % (Manual) Seg Neutrophils # Seg Neutrophils # Man Lymphocytes # (Manual) Monocytes # (Manual) Eosinophils # (Manual) Nucleated RBC % Basophils # (Manual) PT INR APTT Heparin Anti-Xa Level ABG pH POC ABG pO2 68.1 L ABG pO2 ABG HCO3 ABG O2 Saturation ABG Base Excess POC ABG pCO2 ABG Hemoglobin ABG Oxyhemoglobin 91.2 L ABG Sodium ABG Chloride ABG Glucose Oxyhemoglobin Sodium Potassium Chloride Carbon Dioxide BUN Creatinine Glucose POC Glucose 111 H 110 H Lactic Acid Calcium Phosphorus Magnesium AST ALT Lactate Dehydrogenase Total Bilirubin Direct Bilirubin CK-MB (CK-2) C-Reactive Protein NT-Pro-B Natriuret Pep Total Protein Albumin Arterial Blood Glucose Urine WBC (Auto) Urine Creatinine Digoxin 11/28/19 11/28/19 11/28/19 12:08 13:47 13:47 WBC 11.3 H RBC Hgb Hct MCHC RDW 16.1 H MCV MCH Lymph % (Auto) [place] % (Auto) 9.9 H [place] # 1.1 H Eos # Lymph # (Auto) [place] # (Auto) Eos # (Auto) Seg Neutrophils % 71.4 H Seg Neuts % (Manual) Baso # (Auto) Lymphocytes % (Manual) Monocytes % (Manual) Eosinophils % (Manual) Basophils % (Manual) Seg Neutrophils # 8.1 H Seg Neutrophils # Man Lymphocytes # (Manual) Monocytes # (Manual) Eosinophils # (Manual) Nucleated RBC % Basophils # (Manual) PT INR APTT Heparin Anti-Xa Level ABG pH POC ABG pO2 ABG pO2 ABG HCO3 ABG O2 Saturation ABG Base Excess POC ABG pCO2 ABG Hemoglobin ABG Oxyhemoglobin ABG Sodium ABG Chloride ABG Glucose Oxyhemoglobin Sodium Potassium Chloride Carbon Dioxide BUN 23 H Creatinine Glucose 123 H POC Glucose 112 H Lactic Acid Calcium Phosphorus Magnesium AST ALT Lactate Dehydrogenase Total Bilirubin Direct Bilirubin CK-MB (CK-2) C-Reactive Protein NT-Pro-B Natriuret Pep Total Protein Albumin 3.7 L Arterial Blood Glucose Urine WBC (Auto) Urine Creatinine Digoxin 11/28/19 11/29/19 11/29/19 17:26 03:55 17:04 WBC RBC Hgb Hct MCHC RDW MCV MCH Lymph % (Auto) [place] % (Auto) [place] # Eos # Lymph # (Auto) [place] # (Auto) Eos # (Auto) Seg Neutrophils % Seg Neuts % (Manual) Baso # (Auto) Lymphocytes % (Manual) Monocytes % (Manual) Eosinophils % (Manual) Basophils % (Manual) Seg Neutrophils # Seg Neutrophils # Man Lymphocytes # (Manual) Monocytes # (Manual) Eosinophils # (Manual) Nucleated RBC % Basophils # (Manual) PT INR APTT Heparin Anti-Xa Level ABG pH POC ABG pO2 ABG pO2 65.7 L ABG HCO3 28.3 H ABG O2 Saturation 93.9 L ABG Base Excess 3.6 H POC ABG pCO2 ABG Hemoglobin 13.3 L ABG Oxyhemoglobin ABG Sodium ABG Chloride ABG Glucose Oxyhemoglobin 91.5 L Sodium Potassium Chloride Carbon Dioxide BUN Creatinine Glucose POC Glucose 123 H 119 H Lactic Acid Calcium Phosphorus Magnesium AST ALT Lactate Dehydrogenase Total Bilirubin Direct Bilirubin CK-MB (CK-2) C-Reactive Protein NT-Pro-B Natriuret Pep Total Protein Albumin Arterial Blood Glucose Urine WBC (Auto) Urine Creatinine Digoxin 11/30/19 11/30/19 11/30/19 04:17 04:17 04:56 WBC 13.4 H RBC Hgb Hct MCHC RDW 15.6 H MCV MCH Lymph % (Auto) [place] % (Auto) [place] # Eos # Lymph # (Auto) [place] # (Auto) Eos # (Auto) Seg Neutrophils % Seg Neuts % (Manual) Baso # (Auto) Lymphocytes % (Manual) Monocytes % (Manual) Eosinophils % (Manual) Basophils % (Manual) Seg Neutrophils # Seg Neutrophils # Man Lymphocytes # (Manual) Monocytes # (Manual) Eosinophils # (Manual) Nucleated RBC % Basophils # (Manual) PT INR APTT Heparin Anti-Xa Level ABG pH POC ABG pO2 ABG pO2 56.3 L ABG HCO3 29.3 H ABG O2 Saturation 91.5 L ABG Base Excess 4.7 H POC ABG pCO2 ABG Hemoglobin 12.1 L ABG Oxyhemoglobin ABG Sodium ABG Chloride ABG Glucose Oxyhemoglobin 89.2 L Sodium 147 H Potassium Chloride Carbon Dioxide BUN 30 H Creatinine Glucose 124 H POC Glucose Lactic Acid Calcium Phosphorus Magnesium AST ALT Lactate Dehydrogenase Total Bilirubin Direct Bilirubin CK-MB (CK-2) C-Reactive Protein NT-Pro-B Natriuret Pep Total Protein Albumin 3.8 L Arterial Blood Glucose Urine WBC (Auto) Urine Creatinine Digoxin 11/30/19 11/30/19 11/30/19 05:51 11:54 18:17 WBC RBC Hgb Hct MCHC RDW MCV MCH Lymph % (Auto) [place] % (Auto) [place] # Eos # Lymph # (Auto) [place] # (Auto) Eos # (Auto) Seg Neutrophils % Seg Neuts % (Manual) Baso # (Auto) Lymphocytes % (Manual) Monocytes % (Manual) Eosinophils % (Manual) Basophils % (Manual) Seg Neutrophils # Seg Neutrophils # Man Lymphocytes # (Manual) Monocytes # (Manual) Eosinophils # (Manual) Nucleated RBC % Basophils # (Manual) PT INR APTT Heparin Anti-Xa Level ABG pH POC ABG pO2 ABG pO2 ABG HCO3 ABG O2 Saturation ABG Base Excess POC ABG pCO2 ABG Hemoglobin ABG Oxyhemoglobin ABG Sodium ABG Chloride ABG Glucose Oxyhemoglobin Sodium Potassium Chloride Carbon Dioxide BUN Creatinine Glucose POC Glucose 127 H 115 H 143 H Lactic Acid Calcium Phosphorus Magnesium AST ALT Lactate Dehydrogenase Total Bilirubin Direct Bilirubin CK-MB (CK-2) C-Reactive Protein NT-Pro-B Natriuret Pep Total Protein Albumin Arterial Blood Glucose Urine WBC (Auto) Urine Creatinine Digoxin 12/01/19 12/01/19 12/01/19 01:18 05:22 12:16 WBC RBC Hgb Hct MCHC RDW MCV MCH Lymph % (Auto) [place] % (Auto) [place] # Eos # Lymph # (Auto) [place] # (Auto) Eos # (Auto) Seg Neutrophils % Seg Neuts % (Manual) Baso # (Auto) Lymphocytes % (Manual) Monocytes % (Manual) Eosinophils % (Manual) Basophils % (Manual) Seg Neutrophils # Seg Neutrophils # Man Lymphocytes # (Manual) Monocytes # (Manual) Eosinophils # (Manual) Nucleated RBC % Basophils # (Manual) PT INR APTT Heparin Anti-Xa Level ABG pH POC ABG pO2 ABG pO2 ABG HCO3 ABG O2 Saturation ABG Base Excess POC ABG pCO2 ABG Hemoglobin ABG Oxyhemoglobin ABG Sodium ABG Chloride ABG Glucose Oxyhemoglobin Sodium Potassium 3.5 L Chloride 107.8 H Carbon Dioxide BUN 37 H Creatinine Glucose 157 H POC Glucose 118 H 148 H Lactic Acid Calcium 8.2 L D Phosphorus Magnesium AST 48 H ALT 60 H Lactate Dehydrogenase 194 H Total Bilirubin Direct Bilirubin CK-MB (CK-2) C-Reactive Protein 8.50 H NT-Pro-B Natriuret Pep Total Protein 5.5 L Albumin 2.8 L Arterial Blood Glucose Urine WBC (Auto) Urine Creatinine Digoxin 12/01/19 12/02/19 12/02/19 18:04 00:05 05:16 WBC 11.4 H RBC Hgb Hct MCHC RDW 15.9 H MCV MCH Lymph % (Auto) [place] % (Auto) 9.9 H [place] # 1.1 H Eos # Lymph # (Auto) [place] # (Auto) Eos # (Auto) Seg Neutrophils % 70.3 H Seg Neuts % (Manual) Baso # (Auto) Lymphocytes % (Manual) Monocytes % (Manual) Eosinophils % (Manual) Basophils % (Manual) Seg Neutrophils # 8.0 H Seg Neutrophils # Man Lymphocytes # (Manual) Monocytes # (Manual) Eosinophils # (Manual) Nucleated RBC % Basophils # (Manual) PT INR APTT Heparin Anti-Xa Level ABG pH POC ABG pO2 ABG pO2 ABG HCO3 ABG O2 Saturation ABG Base Excess POC ABG pCO2 ABG Hemoglobin ABG Oxyhemoglobin ABG Sodium ABG Chloride ABG Glucose Oxyhemoglobin Sodium Potassium Chloride Carbon Dioxide BUN Creatinine Glucose POC Glucose 143 H 107 H Lactic Acid Calcium Phosphorus Magnesium AST ALT Lactate Dehydrogenase Total Bilirubin Direct Bilirubin CK-MB (CK-2) C-Reactive Protein NT-Pro-B Natriuret Pep Total Protein Albumin Arterial Blood Glucose Urine WBC (Auto) Urine Creatinine Digoxin 12/02/19 12/02/19 12/02/19 05:16 06:03 11:52 WBC RBC Hgb Hct MCHC RDW MCV MCH Lymph % (Auto) [place] % (Auto) [place] # Eos # Lymph # (Auto) [place] # (Auto) Eos # (Auto) Seg Neutrophils % Seg Neuts % (Manual) Baso # (Auto) Lymphocytes % (Manual) Monocytes % (Manual) Eosinophils % (Manual) Basophils % (Manual) Seg Neutrophils # Seg Neutrophils # Man Lymphocytes # (Manual) Monocytes # (Manual) Eosinophils # (Manual) Nucleated RBC % Basophils # (Manual) PT INR APTT Heparin Anti-Xa Level ABG pH POC ABG pO2 ABG pO2 ABG HCO3 ABG O2 Saturation ABG Base Excess POC ABG pCO2 ABG Hemoglobin ABG Oxyhemoglobin ABG Sodium ABG Chloride ABG Glucose Oxyhemoglobin Sodium 146 H Potassium Chloride Carbon Dioxide BUN 28 H Creatinine Glucose 123 H POC Glucose 110 H 152 H Lactic Acid Calcium Phosphorus Magnesium AST ALT Lactate Dehydrogenase Total Bilirubin Direct Bilirubin CK-MB (CK-2) C-Reactive Protein NT-Pro-B Natriuret Pep Total Protein Albumin Arterial Blood Glucose Urine WBC (Auto) Urine Creatinine Digoxin 12/02/19 12/02/19 12/02/19 12:58 17:58 23:36 WBC RBC Hgb Hct MCHC RDW MCV MCH Lymph % (Auto) [place] % (Auto) [place] # Eos # Lymph # (Auto) [place] # (Auto) Eos # (Auto) Seg Neutrophils % Seg Neuts % (Manual) Baso # (Auto) Lymphocytes % (Manual) Monocytes % (Manual) Eosinophils % (Manual) Basophils % (Manual) Seg Neutrophils # Seg Neutrophils # Man Lymphocytes # (Manual) Monocytes # (Manual) Eosinophils # (Manual) Nucleated RBC % Basophils # (Manual) PT INR APTT Heparin Anti-Xa Level ABG pH POC ABG pO2 78.1 L ABG pO2 ABG HCO3 ABG O2 Saturation ABG Base Excess POC ABG pCO2 ABG Hemoglobin ABG Oxyhemoglobin ABG Sodium ABG Chloride ABG Glucose Oxyhemoglobin Sodium Potassium Chloride Carbon Dioxide BUN Creatinine Glucose POC Glucose 120 H 123 H Lactic Acid Calcium Phosphorus Magnesium AST ALT Lactate Dehydrogenase Total Bilirubin Direct Bilirubin CK-MB (CK-2) C-Reactive Protein NT-Pro-B Natriuret Pep Total Protein Albumin Arterial Blood Glucose Urine WBC (Auto) Urine Creatinine Digoxin 12/03/19 12/03/19 12/03/19 06:03 06:14 11:46 WBC RBC Hgb Hct MCHC RDW MCV MCH Lymph % (Auto) [place] % (Auto) [place] # Eos # Lymph # (Auto) [place] # (Auto) Eos # (Auto) Seg Neutrophils % Seg Neuts % (Manual) Baso # (Auto) Lymphocytes % (Manual) Monocytes % (Manual) Eosinophils % (Manual) Basophils % (Manual) Seg Neutrophils # Seg Neutrophils # Man Lymphocytes # (Manual) Monocytes # (Manual) Eosinophils # (Manual) Nucleated RBC % Basophils # (Manual) PT INR APTT Heparin Anti-Xa Level ABG pH POC ABG pO2 ABG pO2 ABG HCO3 ABG O2 Saturation ABG Base Excess POC ABG pCO2 ABG Hemoglobin ABG Oxyhemoglobin ABG Sodium ABG Chloride ABG Glucose Oxyhemoglobin Sodium Potassium Chloride Carbon Dioxide BUN Creatinine Glucose POC Glucose 142 H 130 H Lactic Acid Calcium Phosphorus Magnesium AST ALT Lactate Dehydrogenase Total Bilirubin Direct Bilirubin CK-MB (CK-2) C-Reactive Protein NT-Pro-B Natriuret Pep Total Protein Albumin Arterial Blood Glucose Urine WBC (Auto) 8.0 H Urine Creatinine Digoxin 12/03/19 12/03/19 12/04/19 15:50 17:39 00:04 WBC RBC Hgb Hct MCHC RDW MCV MCH Lymph % (Auto) [place] % (Auto) [place] # Eos # Lymph # (Auto) [place] # (Auto) Eos # (Auto) Seg Neutrophils % Seg Neuts % (Manual) Baso # (Auto) Lymphocytes % (Manual) Monocytes % (Manual) Eosinophils % (Manual) Basophils % (Manual) Seg Neutrophils # Seg Neutrophils # Man Lymphocytes # (Manual) Monocytes # (Manual) Eosinophils # (Manual) Nucleated RBC % Basophils # (Manual) PT INR APTT Heparin Anti-Xa Level ABG pH POC ABG pO2 ABG pO2 ABG HCO3 ABG O2 Saturation ABG Base Excess POC ABG pCO2 ABG Hemoglobin ABG Oxyhemoglobin ABG Sodium ABG Chloride ABG Glucose Oxyhemoglobin Sodium Potassium Chloride Carbon Dioxide BUN Creatinine Glucose POC Glucose 146 H 133 H Lactic Acid Calcium Phosphorus 2.40 L Magnesium AST ALT Lactate Dehydrogenase Total Bilirubin Direct Bilirubin CK-MB (CK-2) C-Reactive Protein NT-Pro-B Natriuret Pep Total Protein Albumin Arterial Blood Glucose Urine WBC (Auto) Urine Creatinine Digoxin 12/04/19 12/04/19 12/04/19 03:58 03:58 05:22 WBC 12.5 H RBC Hgb 11.2 L Hct 35.2 L MCHC RDW 16.0 H MCV MCH Lymph % (Auto) [place] % (Auto) 9.6 H [place] # 1.2 H Eos # 0.5 H Lymph # (Auto) [place] # (Auto) Eos # (Auto) Seg Neutrophils % Seg Neuts % (Manual) Baso # (Auto) Lymphocytes % (Manual) Monocytes % (Manual) Eosinophils % (Manual) Basophils % (Manual) Seg Neutrophils # 8.6 H Seg Neutrophils # Man Lymphocytes # (Manual) Monocytes # (Manual) Eosinophils # (Manual) Nucleated RBC % Basophils # (Manual) PT INR APTT Heparin Anti-Xa Level ABG pH POC ABG pO2 ABG pO2 ABG HCO3 ABG O2 Saturation ABG Base Excess POC ABG pCO2 ABG Hemoglobin ABG Oxyhemoglobin ABG Sodium ABG Chloride ABG Glucose Oxyhemoglobin Sodium 146 H Potassium Chloride 108.6 H Carbon Dioxide BUN 30 H Creatinine 0.7 L Glucose 121 H POC Glucose 132 H Lactic Acid Calcium Phosphorus Magnesium AST ALT Lactate Dehydrogenase Total Bilirubin Direct Bilirubin CK-MB (CK-2) C-Reactive Protein NT-Pro-B Natriuret Pep Total Protein Albumin Arterial Blood Glucose Urine WBC (Auto) Urine Creatinine Digoxin 12/04/19 12/04/19 12/05/19 13:26 18:43 00:19 WBC RBC Hgb Hct MCHC RDW MCV MCH Lymph % (Auto) [place] % (Auto) [place] # Eos # Lymph # (Auto) [place] # (Auto) Eos # (Auto) Seg Neutrophils % Seg Neuts % (Manual) Baso # (Auto) Lymphocytes % (Manual) Monocytes % (Manual) Eosinophils % (Manual) Basophils % (Manual) Seg Neutrophils # Seg Neutrophils # Man Lymphocytes # (Manual) Monocytes # (Manual) Eosinophils # (Manual) Nucleated RBC % Basophils # (Manual) PT INR APTT Heparin Anti-Xa Level ABG pH POC ABG pO2 ABG pO2 ABG HCO3 ABG O2 Saturation ABG Base Excess POC ABG pCO2 ABG Hemoglobin ABG Oxyhemoglobin ABG Sodium ABG Chloride ABG Glucose Oxyhemoglobin Sodium Potassium Chloride Carbon Dioxide BUN Creatinine Glucose POC Glucose 185 H 156 H 150 H Lactic Acid Calcium Phosphorus Magnesium AST ALT Lactate Dehydrogenase Total Bilirubin Direct Bilirubin CK-MB (CK-2) C-Reactive Protein NT-Pro-B Natriuret Pep Total Protein Albumin Arterial Blood Glucose Urine WBC (Auto) Urine Creatinine Digoxin 12/05/19 12/05/19 12/05/19 03:37 03:37 05:14 WBC 16.3 H RBC Hgb 11.4 L Hct MCHC RDW 15.6 H MCV MCH Lymph % (Auto) 9.9 L [place] % (Auto) 9.7 H [place] # 1.6 H Eos # Lymph # (Auto) [place] # (Auto) Eos # (Auto) Seg Neutrophils % 78.0 H Seg Neuts % (Manual) Baso # (Auto) Lymphocytes % (Manual) Monocytes % (Manual) Eosinophils % (Manual) Basophils % (Manual) Seg Neutrophils # 12.7 H Seg Neutrophils # Man Lymphocytes # (Manual) Monocytes # (Manual) Eosinophils # (Manual) Nucleated RBC % Basophils # (Manual) PT INR APTT Heparin Anti-Xa Level ABG pH POC ABG pO2 ABG pO2 ABG HCO3 ABG O2 Saturation ABG Base Excess POC ABG pCO2 ABG Hemoglobin ABG Oxyhemoglobin ABG Sodium ABG Chloride ABG Glucose Oxyhemoglobin Sodium 146 H Potassium Chloride 107.2 H Carbon Dioxide BUN 27 H Creatinine 0.7 L Glucose 171 H POC Glucose 168 H Lactic Acid Calcium Phosphorus Magnesium AST ALT Lactate Dehydrogenase Total Bilirubin Direct Bilirubin CK-MB (CK-2) C-Reactive Protein NT-Pro-B Natriuret Pep Total Protein Albumin Arterial Blood Glucose Urine WBC (Auto) Urine Creatinine Digoxin 12/05/19 12/05/19 12/05/19 12:31 18:10 23:58 WBC RBC Hgb Hct MCHC RDW MCV MCH Lymph % (Auto) [place] % (Auto) [place] # Eos # Lymph # (Auto) [place] # (Auto) Eos # (Auto) Seg Neutrophils % Seg Neuts % (Manual) Baso # (Auto) Lymphocytes % (Manual) Monocytes % (Manual) Eosinophils % (Manual) Basophils % (Manual) Seg Neutrophils # Seg Neutrophils # Man Lymphocytes # (Manual) Monocytes # (Manual) Eosinophils # (Manual) Nucleated RBC % Basophils # (Manual) PT INR APTT Heparin Anti-Xa Level ABG pH POC ABG pO2 ABG pO2 ABG HCO3 ABG O2 Saturation ABG Base Excess POC ABG pCO2 ABG Hemoglobin ABG Oxyhemoglobin ABG Sodium ABG Chloride ABG Glucose Oxyhemoglobin Sodium Potassium Chloride Carbon Dioxide BUN Creatinine Glucose POC Glucose 159 H 198 H 115 H Lactic Acid Calcium Phosphorus Magnesium AST ALT Lactate Dehydrogenase Total Bilirubin Direct Bilirubin CK-MB (CK-2) C-Reactive Protein NT-Pro-B Natriuret Pep Total Protein Albumin Arterial Blood Glucose Urine WBC (Auto) Urine Creatinine Digoxin 12/06/19 12/06/19 12/06/19 05:24 05:24 05:25 WBC 14.9 H RBC Hgb 10.8 L Hct 34.0 L MCHC RDW 15.6 H MCV MCH Lymph % (Auto) 10.7 L [place] % (Auto) 8.3 H [place] # 1.2 H Eos # Lymph # (Auto) [place] # (Auto) Eos # (Auto) Seg Neutrophils % 78.7 H Seg Neuts % (Manual) Baso # (Auto) Lymphocytes % (Manual) Monocytes % (Manual) Eosinophils % (Manual) Basophils % (Manual) Seg Neutrophils # 11.7 H Seg Neutrophils # Man Lymphocytes # (Manual) Monocytes # (Manual) Eosinophils # (Manual) Nucleated RBC % Basophils # (Manual) PT INR APTT Heparin Anti-Xa Level ABG pH POC ABG pO2 ABG pO2 ABG HCO3 ABG O2 Saturation ABG Base Excess POC ABG pCO2 ABG Hemoglobin ABG Oxyhemoglobin ABG Sodium ABG Chloride ABG Glucose Oxyhemoglobin Sodium 148 H Potassium 5.1 H Chloride 107.6 H Carbon Dioxide BUN 27 H Creatinine 0.7 L Glucose 155 H POC Glucose 157 H Lactic Acid Calcium Phosphorus Magnesium AST ALT Lactate Dehydrogenase Total Bilirubin Direct Bilirubin CK-MB (CK-2) C-Reactive Protein NT-Pro-B Natriuret Pep Total Protein Albumin Arterial Blood Glucose Urine WBC (Auto) Urine Creatinine Digoxin 12/07/19 12/07/19 12/07/19 00:13 05:34 11:33 WBC RBC Hgb Hct MCHC RDW MCV MCH Lymph % (Auto) [place] % (Auto) [place] # Eos # Lymph # (Auto) [place] # (Auto) Eos # (Auto) Seg Neutrophils % Seg Neuts % (Manual) Baso # (Auto) Lymphocytes % (Manual) Monocytes % (Manual) Eosinophils % (Manual) Basophils % (Manual) Seg Neutrophils # Seg Neutrophils # Man Lymphocytes # (Manual) Monocytes # (Manual) Eosinophils # (Manual) Nucleated RBC % Basophils # (Manual) PT INR APTT Heparin Anti-Xa Level ABG pH POC ABG pO2 ABG pO2 ABG HCO3 ABG O2 Saturation ABG Base Excess POC ABG pCO2 ABG Hemoglobin ABG Oxyhemoglobin ABG Sodium ABG Chloride ABG Glucose Oxyhemoglobin Sodium Potassium Chloride Carbon Dioxide BUN Creatinine Glucose POC Glucose 142 H 111 H 169 H Lactic Acid Calcium Phosphorus Magnesium AST ALT Lactate Dehydrogenase Total Bilirubin Direct Bilirubin CK-MB (CK-2) C-Reactive Protein NT-Pro-B Natriuret Pep Total Protein Albumin Arterial Blood Glucose Urine WBC (Auto) Urine Creatinine Digoxin 12/07/19 12/07/19 12/07/19 12:41 13:25 18:19 WBC 12.4 H RBC 3.53 L Hgb 10.2 L Hct 32.1 L MCHC RDW 15.3 H MCV MCH Lymph % (Auto) 10.6 L [place] % (Auto) 7.8 H [place] # 1.0 H Eos # Lymph # (Auto) [place] # (Auto) Eos # (Auto) Seg Neutrophils % 77.6 H Seg Neuts % (Manual) Baso # (Auto) Lymphocytes % (Manual) Monocytes % (Manual) Eosinophils % (Manual) Basophils % (Manual) Seg Neutrophils # 9.6 H Seg Neutrophils # Man Lymphocytes # (Manual) Monocytes # (Manual) Eosinophils # (Manual) Nucleated RBC % Basophils # (Manual) PT INR APTT Heparin Anti-Xa Level ABG pH POC ABG pO2 ABG pO2 ABG HCO3 ABG O2 Saturation ABG Base Excess POC ABG pCO2 ABG Hemoglobin ABG Oxyhemoglobin ABG Sodium ABG Chloride ABG Glucose Oxyhemoglobin Sodium 149 H Potassium Chloride 108.4 H Carbon Dioxide BUN 26 H Creatinine 0.6 L Glucose 149 H POC Glucose 164 H Lactic Acid Calcium Phosphorus Magnesium 2.60 H AST 121 H ALT 145 H Lactate Dehydrogenase Total Bilirubin Direct Bilirubin CK-MB (CK-2) C-Reactive Protein NT-Pro-B Natriuret Pep Total Protein Albumin 2.6 L Arterial Blood Glucose Urine WBC (Auto) Urine Creatinine Digoxin 12/07/19 12/08/19 12/08/19 22:25 00:02 03:55 WBC 13.3 H RBC 3.40 L Hgb 9.7 L Hct 30.8 L MCHC 31 L RDW 15.5 H MCV MCH Lymph % (Auto) [place] % (Auto) 8.1 H [place] # 1.1 H Eos # Lymph # (Auto) [place] # (Auto) Eos # (Auto) Seg Neutrophils % 73.0 H Seg Neuts % (Manual) Baso # (Auto) Lymphocytes % (Manual) Monocytes % (Manual) Eosinophils % (Manual) Basophils % (Manual) Seg Neutrophils # 9.7 H Seg Neutrophils # Man Lymphocytes # (Manual) Monocytes # (Manual) Eosinophils # (Manual) Nucleated RBC % Basophils # (Manual) PT INR APTT Heparin Anti-Xa Level 0.12 L ABG pH POC ABG pO2 ABG pO2 ABG HCO3 ABG O2 Saturation ABG Base Excess POC ABG pCO2 ABG Hemoglobin ABG Oxyhemoglobin ABG Sodium ABG Chloride ABG Glucose Oxyhemoglobin Sodium Potassium Chloride Carbon Dioxide BUN Creatinine Glucose POC Glucose 151 H Lactic Acid Calcium Phosphorus Magnesium AST ALT Lactate Dehydrogenase Total Bilirubin Direct Bilirubin CK-MB (CK-2) C-Reactive Protein NT-Pro-B Natriuret Pep Total Protein Albumin Arterial Blood Glucose Urine WBC (Auto) Urine Creatinine Digoxin 12/08/19 12/08/19 12/08/19 03:55 05:21 06:01 WBC RBC Hgb Hct MCHC RDW MCV MCH Lymph % (Auto) [place] % (Auto) [place] # Eos # Lymph # (Auto) [place] # (Auto) Eos # (Auto) Seg Neutrophils % Seg Neuts % (Manual) Baso # (Auto) Lymphocytes % (Manual) Monocytes % (Manual) Eosinophils % (Manual) Basophils % (Manual) Seg Neutrophils # Seg Neutrophils # Man Lymphocytes # (Manual) Monocytes # (Manual) Eosinophils # (Manual) Nucleated RBC % Basophils # (Manual) PT INR APTT Heparin Anti-Xa Level 0.20 L ABG pH POC ABG pO2 ABG pO2 ABG HCO3 ABG O2 Saturation ABG Base Excess POC ABG pCO2 ABG Hemoglobin ABG Oxyhemoglobin ABG Sodium ABG Chloride ABG Glucose Oxyhemoglobin Sodium 149 H Potassium Chloride 108.0 H Carbon Dioxide BUN 28 H Creatinine 0.6 L Glucose 144 H POC Glucose 143 H Lactic Acid Calcium Phosphorus Magnesium AST 98 H ALT 145 H Lactate Dehydrogenase Total Bilirubin Direct Bilirubin CK-MB (CK-2) C-Reactive Protein NT-Pro-B Natriuret Pep Total Protein 6.0 L Albumin 2.4 L Arterial Blood Glucose Urine WBC (Auto) Urine Creatinine Digoxin 12/08/19 12/08/19 12/08/19 12:08 18:11 23:53 WBC RBC Hgb Hct MCHC RDW MCV MCH Lymph % (Auto) [place] % (Auto) [place] # Eos # Lymph # (Auto) [place] # (Auto) Eos # (Auto) Seg Neutrophils % Seg Neuts % (Manual) Baso # (Auto) Lymphocytes % (Manual) Monocytes % (Manual) Eosinophils % (Manual) Basophils % (Manual) Seg Neutrophils # Seg Neutrophils # Man Lymphocytes # (Manual) Monocytes # (Manual) Eosinophils # (Manual) Nucleated RBC % Basophils # (Manual) PT INR APTT Heparin Anti-Xa Level ABG pH POC ABG pO2 ABG pO2 ABG HCO3 ABG O2 Saturation ABG Base Excess POC ABG pCO2 ABG Hemoglobin ABG Oxyhemoglobin ABG Sodium ABG Chloride ABG Glucose Oxyhemoglobin Sodium Potassium Chloride Carbon Dioxide BUN Creatinine Glucose POC Glucose 172 H 122 H 162 H Lactic Acid Calcium Phosphorus Magnesium AST ALT Lactate Dehydrogenase Total Bilirubin Direct Bilirubin CK-MB (CK-2) C-Reactive Protein NT-Pro-B Natriuret Pep Total Protein Albumin Arterial Blood Glucose Urine WBC (Auto) Urine Creatinine Digoxin 12/09/19 12/09/19 12/09/19 04:03 04:03 05:53 WBC RBC Hgb 9.1 L Hct 28.9 L MCHC RDW MCV MCH Lymph % (Auto) [place] % (Auto) [place] # Eos # Lymph # (Auto) [place] # (Auto) Eos # (Auto) Seg Neutrophils % Seg Neuts % (Manual) Baso # (Auto) Lymphocytes % (Manual) Monocytes % (Manual) Eosinophils % (Manual) Basophils % (Manual) Seg Neutrophils # Seg Neutrophils # Man Lymphocytes # (Manual) Monocytes # (Manual) Eosinophils # (Manual) Nucleated RBC % Basophils # (Manual) PT INR APTT Heparin Anti-Xa Level 0.15 L ABG pH POC ABG pO2 ABG pO2 ABG HCO3 ABG O2 Saturation ABG Base Excess POC ABG pCO2 ABG Hemoglobin ABG Oxyhemoglobin ABG Sodium ABG Chloride ABG Glucose Oxyhemoglobin Sodium Potassium Chloride Carbon Dioxide BUN Creatinine Glucose POC Glucose 124 H Lactic Acid Calcium Phosphorus Magnesium AST ALT Lactate Dehydrogenase Total Bilirubin Direct Bilirubin CK-MB (CK-2) C-Reactive Protein NT-Pro-B Natriuret Pep Total Protein Albumin Arterial Blood Glucose Urine WBC (Auto) Urine Creatinine Digoxin 12/09/19 12/09/19 12/10/19 09:43 12:41 00:13 WBC RBC Hgb Hct MCHC RDW MCV MCH Lymph % (Auto) [place] % (Auto) [place] # Eos # Lymph # (Auto) [place] # (Auto) Eos # (Auto) Seg Neutrophils % Seg Neuts % (Manual) Baso # (Auto) Lymphocytes % (Manual) Monocytes % (Manual) Eosinophils % (Manual) Basophils % (Manual) Seg Neutrophils # Seg Neutrophils # Man Lymphocytes # (Manual) Monocytes # (Manual) Eosinophils # (Manual) Nucleated RBC % Basophils # (Manual) PT INR APTT Heparin Anti-Xa Level ABG pH POC ABG pO2 ABG pO2 ABG HCO3 ABG O2 Saturation ABG Base Excess POC ABG pCO2 ABG Hemoglobin ABG Oxyhemoglobin ABG Sodium ABG Chloride ABG Glucose Oxyhemoglobin Sodium Potassium Chloride Carbon Dioxide BUN 25 H Creatinine 0.6 L Glucose 131 H POC Glucose 109 H 120 H Lactic Acid Calcium Phosphorus Magnesium AST ALT Lactate Dehydrogenase Total Bilirubin Direct Bilirubin CK-MB (CK-2) C-Reactive Protein NT-Pro-B Natriuret Pep Total Protein Albumin Arterial Blood Glucose Urine WBC (Auto) Urine Creatinine Digoxin 12/10/19 12/10/19 12/10/19 04:14 04:14 12:00 WBC 13.3 H RBC 3.34 L Hgb 9.6 L Hct 30.4 L MCHC RDW 15.4 H MCV MCH Lymph % (Auto) [place] % (Auto) [place] # Eos # Lymph # (Auto) [place] # (Auto) Eos # (Auto) Seg Neutrophils % Seg Neuts % (Manual) 75.0 H Baso # (Auto) Lymphocytes % (Manual) 13.0 L Monocytes % (Manual) 8.0 H Eosinophils % (Manual) Basophils % (Manual) 2.0 H Seg Neutrophils # Seg Neutrophils # Man 10.0 H Lymphocytes # (Manual) Monocytes # (Manual) 1.1 H Eosinophils # (Manual) Nucleated RBC % Basophils # (Manual) 0.3 H PT INR APTT Heparin Anti-Xa Level ABG pH POC ABG pO2 ABG pO2 ABG HCO3 ABG O2 Saturation ABG Base Excess POC ABG pCO2 ABG Hemoglobin ABG Oxyhemoglobin ABG Sodium ABG Chloride ABG Glucose Oxyhemoglobin Sodium 147 H Potassium Chloride 108.3 H Carbon Dioxide BUN 21 H Creatinine 0.6 L Glucose 104 H POC Glucose 133 H Lactic Acid Calcium Phosphorus Magnesium AST ALT Lactate Dehydrogenase Total Bilirubin Direct Bilirubin CK-MB (CK-2) C-Reactive Protein NT-Pro-B Natriuret Pep Total Protein Albumin Arterial Blood Glucose Urine WBC (Auto) Urine Creatinine Digoxin 12/10/19 12/10/19 12/11/19 18:44 21:20 00:08 WBC 14.9 H RBC 3.36 L Hgb 9.6 L Hct 30.5 L MCHC RDW 15.4 H MCV MCH Lymph % (Auto) [place] % (Auto) [place] # Eos # Lymph # (Auto) [place] # (Auto) Eos # (Auto) Seg Neutrophils % Seg Neuts % (Manual) Baso # (Auto) Lymphocytes % (Manual) Monocytes % (Manual) Eosinophils % (Manual) Basophils % (Manual) Seg Neutrophils # Seg Neutrophils # Man Lymphocytes # (Manual) Monocytes # (Manual) Eosinophils # (Manual) Nucleated RBC % Basophils # (Manual) PT INR APTT Heparin Anti-Xa Level ABG pH POC ABG pO2 ABG pO2 ABG HCO3 ABG O2 Saturation ABG Base Excess POC ABG pCO2 ABG Hemoglobin ABG Oxyhemoglobin ABG Sodium ABG Chloride ABG Glucose Oxyhemoglobin Sodium Potassium Chloride Carbon Dioxide BUN Creatinine Glucose POC Glucose 119 H 134 H Lactic Acid Calcium Phosphorus Magnesium AST ALT Lactate Dehydrogenase Total Bilirubin Direct Bilirubin CK-MB (CK-2) C-Reactive Protein NT-Pro-B Natriuret Pep Total Protein Albumin Arterial Blood Glucose Urine WBC (Auto) Urine Creatinine Digoxin 12/11/19 12/11/19 12/11/19 03:54 07:28 08:36 WBC 11.9 H RBC 3.25 L Hgb 9.6 L Hct 29.2 L MCHC RDW 15.7 H MCV MCH Lymph % (Auto) [place] % (Auto) [place] # Eos # Lymph # (Auto) [place] # (Auto) Eos # (Auto) Seg Neutrophils % Seg Neuts % (Manual) Baso # (Auto) Lymphocytes % (Manual) Monocytes % (Manual) Eosinophils % (Manual) Basophils % (Manual) Seg Neutrophils # Seg Neutrophils # Man Lymphocytes # (Manual) Monocytes # (Manual) Eosinophils # (Manual) Nucleated RBC % Basophils # (Manual) PT INR APTT Heparin Anti-Xa Level 0.10 L 0.16 L ABG pH POC ABG pO2 ABG pO2 ABG HCO3 ABG O2 Saturation ABG Base Excess POC ABG pCO2 ABG Hemoglobin ABG Oxyhemoglobin ABG Sodium ABG Chloride ABG Glucose Oxyhemoglobin Sodium Potassium Chloride Carbon Dioxide BUN Creatinine Glucose POC Glucose Lactic Acid Calcium Phosphorus Magnesium AST ALT Lactate Dehydrogenase Total Bilirubin Direct Bilirubin CK-MB (CK-2) C-Reactive Protein NT-Pro-B Natriuret Pep Total Protein Albumin Arterial Blood Glucose Urine WBC (Auto) Urine Creatinine Digoxin 12/11/19 12/11/19 12/11/19 08:36 11:45 17:15 WBC RBC Hgb Hct MCHC RDW MCV MCH Lymph % (Auto) [place] % (Auto) [place] # Eos # Lymph # (Auto) [place] # (Auto) Eos # (Auto) Seg Neutrophils % Seg Neuts % (Manual) Baso # (Auto) Lymphocytes % (Manual) Monocytes % (Manual) Eosinophils % (Manual) Basophils % (Manual) Seg Neutrophils # Seg Neutrophils # Man Lymphocytes # (Manual) Monocytes # (Manual) Eosinophils # (Manual) Nucleated RBC % Basophils # (Manual) PT INR APTT Heparin Anti-Xa Level ABG pH POC ABG pO2 ABG pO2 ABG HCO3 ABG O2 Saturation ABG Base Excess POC ABG pCO2 ABG Hemoglobin ABG Oxyhemoglobin ABG Sodium ABG Chloride ABG Glucose Oxyhemoglobin Sodium Potassium Chloride Carbon Dioxide BUN Creatinine 0.5 L Glucose 128 H POC Glucose 136 H 109 H Lactic Acid Calcium Phosphorus Magnesium AST ALT Lactate Dehydrogenase Total Bilirubin Direct Bilirubin CK-MB (CK-2) C-Reactive Protein NT-Pro-B Natriuret Pep Total Protein Albumin Arterial Blood Glucose Urine WBC (Auto) Urine Creatinine Digoxin 12/12/19 12/12/19 12/12/19 00:03 05:53 05:53 WBC RBC Hgb 8.8 L Hct 27.6 L MCHC RDW MCV MCH Lymph % (Auto) [place] % (Auto) [place] # Eos # Lymph # (Auto) [place] # (Auto) Eos # (Auto) Seg Neutrophils % Seg Neuts % (Manual) Baso # (Auto) Lymphocytes % (Manual) Monocytes % (Manual) Eosinophils % (Manual) Basophils % (Manual) Seg Neutrophils # Seg Neutrophils # Man Lymphocytes # (Manual) Monocytes # (Manual) Eosinophils # (Manual) Nucleated RBC % Basophils # (Manual) PT INR APTT Heparin Anti-Xa Level 0.22 L ABG pH POC ABG pO2 ABG pO2 ABG HCO3 ABG O2 Saturation ABG Base Excess POC ABG pCO2 ABG Hemoglobin ABG Oxyhemoglobin ABG Sodium ABG Chloride ABG Glucose Oxyhemoglobin Sodium Potassium Chloride Carbon Dioxide BUN Creatinine Glucose POC Glucose 116 H Lactic Acid Calcium Phosphorus Magnesium AST ALT Lactate Dehydrogenase Total Bilirubin Direct Bilirubin CK-MB (CK-2) C-Reactive Protein NT-Pro-B Natriuret Pep Total Protein Albumin Arterial Blood Glucose Urine WBC (Auto) Urine Creatinine Digoxin 12/12/19 12/12/19 12/12/19 09:38 12:18 17:44 WBC RBC Hgb Hct MCHC RDW MCV MCH Lymph % (Auto) [place] % (Auto) [place] # Eos # Lymph # (Auto) [place] # (Auto) Eos # (Auto) Seg Neutrophils % Seg Neuts % (Manual) Baso # (Auto) Lymphocytes % (Manual) Monocytes % (Manual) Eosinophils % (Manual) Basophils % (Manual) Seg Neutrophils # Seg Neutrophils # Man Lymphocytes # (Manual) Monocytes # (Manual) Eosinophils # (Manual) Nucleated RBC % Basophils # (Manual) PT INR APTT Heparin Anti-Xa Level ABG pH POC ABG pO2 ABG pO2 ABG HCO3 ABG O2 Saturation ABG Base Excess POC ABG pCO2 ABG Hemoglobin ABG Oxyhemoglobin ABG Sodium ABG Chloride ABG Glucose Oxyhemoglobin Sodium Potassium Chloride Carbon Dioxide BUN Creatinine Glucose POC Glucose 115 H 146 H 146 H Lactic Acid Calcium Phosphorus Magnesium AST ALT Lactate Dehydrogenase Total Bilirubin Direct Bilirubin CK-MB (CK-2) C-Reactive Protein NT-Pro-B Natriuret Pep Total Protein Albumin Arterial Blood Glucose Urine WBC (Auto) Urine Creatinine Digoxin 12/12/19 12/13/19 12/13/19 23:33 05:32 05:32 WBC 13.1 H RBC 3.27 L Hgb 9.5 L Hct 29.3 L MCHC RDW 15.6 H MCV MCH Lymph % (Auto) [place] % (Auto) [place] # Eos # Lymph # (Auto) [place] # (Auto) Eos # (Auto) Seg Neutrophils % Seg Neuts % (Manual) 74.0 H Baso # (Auto) Lymphocytes % (Manual) 8.0 L Monocytes % (Manual) 9.0 H Eosinophils % (Manual) 5.0 H Basophils % (Manual) Seg Neutrophils # Seg Neutrophils # Man 9.7 H Lymphocytes # (Manual) 1.0 L Monocytes # (Manual) 1.2 H Eosinophils # (Manual) 0.7 H Nucleated RBC % Basophils # (Manual) PT INR APTT Heparin Anti-Xa Level 0.20 L ABG pH POC ABG pO2 ABG pO2 ABG HCO3 ABG O2 Saturation ABG Base Excess POC ABG pCO2 ABG Hemoglobin ABG Oxyhemoglobin ABG Sodium ABG Chloride ABG Glucose Oxyhemoglobin Sodium Potassium Chloride Carbon Dioxide BUN Creatinine Glucose POC Glucose 126 H Lactic Acid Calcium Phosphorus Magnesium AST ALT Lactate Dehydrogenase Total Bilirubin Direct Bilirubin CK-MB (CK-2) C-Reactive Protein NT-Pro-B Natriuret Pep Total Protein Albumin Arterial Blood Glucose Urine WBC (Auto) Urine Creatinine Digoxin 12/13/19 12/13/19 12/13/19 05:32 05:46 11:57 WBC RBC Hgb Hct MCHC RDW MCV MCH Lymph % (Auto) [place] % (Auto) [place] # Eos # Lymph # (Auto) [place] # (Auto) Eos # (Auto) Seg Neutrophils % Seg Neuts % (Manual) Baso # (Auto) Lymphocytes % (Manual) Monocytes % (Manual) Eosinophils % (Manual) Basophils % (Manual) Seg Neutrophils # Seg Neutrophils # Man Lymphocytes # (Manual) Monocytes # (Manual) Eosinophils # (Manual) Nucleated RBC % Basophils # (Manual) PT INR APTT Heparin Anti-Xa Level ABG pH POC ABG pO2 ABG pO2 ABG HCO3 ABG O2 Saturation ABG Base Excess POC ABG pCO2 ABG Hemoglobin ABG Oxyhemoglobin ABG Sodium ABG Chloride ABG Glucose Oxyhemoglobin Sodium Potassium Chloride Carbon Dioxide 31 H BUN Creatinine 0.6 L Glucose 114 H POC Glucose 118 H 133 H Lactic Acid Calcium Phosphorus Magnesium AST ALT Lactate Dehydrogenase Total Bilirubin Direct Bilirubin CK-MB (CK-2) C-Reactive Protein NT-Pro-B Natriuret Pep Total Protein Albumin Arterial Blood Glucose Urine WBC (Auto) Urine Creatinine Digoxin 12/13/19 12/13/19 12/14/19 17:44 23:46 05:32 WBC RBC Hgb Hct MCHC RDW MCV MCH Lymph % (Auto) [place] % (Auto) [place] # Eos # Lymph # (Auto) [place] # (Auto) Eos # (Auto) Seg Neutrophils % Seg Neuts % (Manual) Baso # (Auto) Lymphocytes % (Manual) Monocytes % (Manual) Eosinophils % (Manual) Basophils % (Manual) Seg Neutrophils # Seg Neutrophils # Man Lymphocytes # (Manual) Monocytes # (Manual) Eosinophils # (Manual) Nucleated RBC % Basophils # (Manual) PT INR APTT Heparin Anti-Xa Level ABG pH POC ABG pO2 ABG pO2 ABG HCO3 ABG O2 Saturation ABG Base Excess POC ABG pCO2 ABG Hemoglobin ABG Oxyhemoglobin ABG Sodium ABG Chloride ABG Glucose Oxyhemoglobin Sodium Potassium Chloride Carbon Dioxide BUN Creatinine Glucose POC Glucose 161 H 126 H 139 H Lactic Acid Calcium Phosphorus Magnesium AST ALT Lactate Dehydrogenase Total Bilirubin Direct Bilirubin CK-MB (CK-2) C-Reactive Protein NT-Pro-B Natriuret Pep Total Protein Albumin Arterial Blood Glucose Urine WBC (Auto) Urine Creatinine Digoxin 12/14/19 12/14/19 12/14/19 06:03 06:03 09:37 WBC RBC Hgb 9.6 L Hct 30.4 L MCHC RDW MCV MCH Lymph % (Auto) [place] % (Auto) [place] # Eos # Lymph # (Auto) [place] # (Auto) Eos # (Auto) Seg Neutrophils % Seg Neuts % (Manual) Baso # (Auto) Lymphocytes % (Manual) Monocytes % (Manual) Eosinophils % (Manual) Basophils % (Manual) Seg Neutrophils # Seg Neutrophils # Man Lymphocytes # (Manual) Monocytes # (Manual) Eosinophils # (Manual) Nucleated RBC % Basophils # (Manual) PT INR APTT Heparin Anti-Xa Level 0.24 L ABG pH POC ABG pO2 ABG pO2 ABG HCO3 ABG O2 Saturation ABG Base Excess POC ABG pCO2 ABG Hemoglobin ABG Oxyhemoglobin ABG Sodium ABG Chloride ABG Glucose Oxyhemoglobin Sodium Potassium Chloride Carbon Dioxide BUN Creatinine 0.6 L Glucose 162 H POC Glucose Lactic Acid Calcium Phosphorus Magnesium AST 71 H ALT 118 H Lactate Dehydrogenase Total Bilirubin Direct Bilirubin CK-MB (CK-2) C-Reactive Protein NT-Pro-B Natriuret Pep Total Protein 6.2 L Albumin 2.3 L Arterial Blood Glucose Urine WBC (Auto) Urine Creatinine Digoxin 12/14/19 12/14/19 12/15/19 12:06 18:18 00:19 WBC RBC Hgb Hct MCHC RDW MCV MCH Lymph % (Auto) [place] % (Auto) [place] # Eos # Lymph # (Auto) [place] # (Auto) Eos # (Auto) Seg Neutrophils % Seg Neuts % (Manual) Baso # (Auto) Lymphocytes % (Manual) Monocytes % (Manual) Eosinophils % (Manual) Basophils % (Manual) Seg Neutrophils # Seg Neutrophils # Man Lymphocytes # (Manual) Monocytes # (Manual) Eosinophils # (Manual) Nucleated RBC % Basophils # (Manual) PT INR APTT Heparin Anti-Xa Level ABG pH POC ABG pO2 ABG pO2 ABG HCO3 ABG O2 Saturation ABG Base Excess POC ABG pCO2 ABG Hemoglobin ABG Oxyhemoglobin ABG Sodium ABG Chloride ABG Glucose Oxyhemoglobin Sodium Potassium Chloride Carbon Dioxide BUN Creatinine Glucose POC Glucose 147 H 166 H 123 H Lactic Acid Calcium Phosphorus Magnesium AST ALT Lactate Dehydrogenase Total Bilirubin Direct Bilirubin CK-MB (CK-2) C-Reactive Protein NT-Pro-B Natriuret Pep Total Protein Albumin Arterial Blood Glucose Urine WBC (Auto) Urine Creatinine Digoxin 12/15/19 12/15/19 12/15/19 05:28 05:29 05:29 WBC 14.9 H RBC 3.19 L Hgb 9.1 L Hct 28.7 L MCHC RDW 16.0 H MCV MCH Lymph % (Auto) [place] % (Auto) [place] # Eos # Lymph # (Auto) [place] # (Auto) Eos # (Auto) Seg Neutrophils % Seg Neuts % (Manual) Baso # (Auto) Lymphocytes % (Manual) Monocytes % (Manual) Eosinophils % (Manual) Basophils % (Manual) Seg Neutrophils # Seg Neutrophils # Man Lymphocytes # (Manual) Monocytes # (Manual) Eosinophils # (Manual) Nucleated RBC % Basophils # (Manual) PT INR APTT Heparin Anti-Xa Level 0.19 L ABG pH POC ABG pO2 ABG pO2 ABG HCO3 ABG O2 Saturation ABG Base Excess POC ABG pCO2 ABG Hemoglobin ABG Oxyhemoglobin ABG Sodium ABG Chloride ABG Glucose Oxyhemoglobin Sodium Potassium Chloride Carbon Dioxide BUN Creatinine 0.6 L Glucose 110 H POC Glucose Lactic Acid Calcium Phosphorus Magnesium AST ALT Lactate Dehydrogenase Total Bilirubin Direct Bilirubin CK-MB (CK-2) C-Reactive Protein NT-Pro-B Natriuret Pep Total Protein Albumin Arterial Blood Glucose Urine WBC (Auto) Urine Creatinine Digoxin 12/15/19 12/15/19 12/15/19 05:53 11:50 17:26 WBC RBC Hgb Hct MCHC RDW MCV MCH Lymph % (Auto) [place] % (Auto) [place] # Eos # Lymph # (Auto) [place] # (Auto) Eos # (Auto) Seg Neutrophils % Seg Neuts % (Manual) Baso # (Auto) Lymphocytes % (Manual) Monocytes % (Manual) Eosinophils % (Manual) Basophils % (Manual) Seg Neutrophils # Seg Neutrophils # Man Lymphocytes # (Manual) Monocytes # (Manual) Eosinophils # (Manual) Nucleated RBC % Basophils # (Manual) PT INR APTT Heparin Anti-Xa Level ABG pH POC ABG pO2 ABG pO2 ABG HCO3 ABG O2 Saturation ABG Base Excess POC ABG pCO2 ABG Hemoglobin ABG Oxyhemoglobin ABG Sodium ABG Chloride ABG Glucose Oxyhemoglobin Sodium Potassium Chloride Carbon Dioxide BUN Creatinine Glucose POC Glucose 119 H 132 H 128 H Lactic Acid Calcium Phosphorus Magnesium AST ALT Lactate Dehydrogenase Total Bilirubin Direct Bilirubin CK-MB (CK-2) C-Reactive Protein NT-Pro-B Natriuret Pep Total Protein Albumin Arterial Blood Glucose Urine WBC (Auto) Urine Creatinine Digoxin 12/15/19 12/16/19 12/16/19 23:11 05:30 05:46 WBC RBC Hgb 8.8 L Hct 27.9 L MCHC RDW MCV MCH Lymph % (Auto) [place] % (Auto) [place] # Eos # Lymph # (Auto) [place] # (Auto) Eos # (Auto) Seg Neutrophils % Seg Neuts % (Manual) Baso # (Auto) Lymphocytes % (Manual) Monocytes % (Manual) Eosinophils % (Manual) Basophils % (Manual) Seg Neutrophils # Seg Neutrophils # Man Lymphocytes # (Manual) Monocytes # (Manual) Eosinophils # (Manual) Nucleated RBC % Basophils # (Manual) PT INR APTT Heparin Anti-Xa Level ABG pH POC ABG pO2 ABG pO2 ABG HCO3 ABG O2 Saturation ABG Base Excess POC ABG pCO2 ABG Hemoglobin ABG Oxyhemoglobin ABG Sodium ABG Chloride ABG Glucose Oxyhemoglobin Sodium Potassium Chloride Carbon Dioxide BUN Creatinine Glucose POC Glucose 150 H 134 H Lactic Acid Calcium Phosphorus Magnesium AST ALT Lactate Dehydrogenase Total Bilirubin Direct Bilirubin CK-MB (CK-2) C-Reactive Protein NT-Pro-B Natriuret Pep Total Protein Albumin Arterial Blood Glucose Urine WBC (Auto) Urine Creatinine Digoxin 12/16/19 12/16/19 12/16/19 05:46 05:46 11:44 WBC RBC Hgb Hct MCHC RDW MCV MCH Lymph % (Auto) [place] % (Auto) [place] # Eos # Lymph # (Auto) [place] # (Auto) Eos # (Auto) Seg Neutrophils % Seg Neuts % (Manual) Baso # (Auto) Lymphocytes % (Manual) Monocytes % (Manual) Eosinophils % (Manual) Basophils % (Manual) Seg Neutrophils # Seg Neutrophils # Man Lymphocytes # (Manual) Monocytes # (Manual) Eosinophils # (Manual) Nucleated RBC % Basophils # (Manual) PT INR APTT Heparin Anti-Xa Level 0.20 L ABG pH POC ABG pO2 ABG pO2 ABG HCO3 ABG O2 Saturation ABG Base Excess POC ABG pCO2 ABG Hemoglobin ABG Oxyhemoglobin ABG Sodium ABG Chloride ABG Glucose Oxyhemoglobin Sodium Potassium Chloride Carbon Dioxide 31 H BUN Creatinine 0.5 L Glucose 147 H POC Glucose 164 H Lactic Acid Calcium Phosphorus Magnesium AST ALT Lactate Dehydrogenase Total Bilirubin Direct Bilirubin CK-MB (CK-2) C-Reactive Protein NT-Pro-B Natriuret Pep Total Protein Albumin Arterial Blood Glucose Urine WBC (Auto) Urine Creatinine Digoxin 12/16/19 12/16/19 12/17/19 17:17 23:49 05:30 WBC 13.9 H RBC 3.27 L Hgb 9.4 L Hct 29.2 L MCHC RDW 16.0 H MCV MCH Lymph % (Auto) [place] % (Auto) 8.8 H [place] # Eos # Lymph # (Auto) [place] # (Auto) 1.2 H Eos # (Auto) 0.5 H Seg Neutrophils % 70.5 H Seg Neuts % (Manual) Baso # (Auto) 0.2 H Lymphocytes % (Manual) Monocytes % (Manual) Eosinophils % (Manual) Basophils % (Manual) Seg Neutrophils # 9.8 H Seg Neutrophils # Man Lymphocytes # (Manual) Monocytes # (Manual) Eosinophils # (Manual) Nucleated RBC % Basophils # (Manual) PT INR APTT Heparin Anti-Xa Level ABG pH POC ABG pO2 ABG pO2 ABG HCO3 ABG O2 Saturation ABG Base Excess POC ABG pCO2 ABG Hemoglobin ABG Oxyhemoglobin ABG Sodium ABG Chloride ABG Glucose Oxyhemoglobin Sodium Potassium Chloride Carbon Dioxide BUN Creatinine Glucose POC Glucose 162 H 144 H Lactic Acid Calcium Phosphorus Magnesium AST ALT Lactate Dehydrogenase Total Bilirubin Direct Bilirubin CK-MB (CK-2) C-Reactive Protein NT-Pro-B Natriuret Pep Total Protein Albumin Arterial Blood Glucose Urine WBC (Auto) Urine Creatinine Digoxin 12/17/19 12/17/19 12/17/19 05:30 06:06 11:50 WBC RBC Hgb Hct MCHC RDW MCV MCH Lymph % (Auto) [place] % (Auto) [place] # Eos # Lymph # (Auto) [place] # (Auto) Eos # (Auto) Seg Neutrophils % Seg Neuts % (Manual) Baso # (Auto) Lymphocytes % (Manual) Monocytes % (Manual) Eosinophils % (Manual) Basophils % (Manual) Seg Neutrophils # Seg Neutrophils # Man Lymphocytes # (Manual) Monocytes # (Manual) Eosinophils # (Manual) Nucleated RBC % Basophils # (Manual) PT INR APTT Heparin Anti-Xa Level ABG pH POC ABG pO2 ABG pO2 ABG HCO3 ABG O2 Saturation ABG Base Excess POC ABG pCO2 ABG Hemoglobin ABG Oxyhemoglobin ABG Sodium ABG Chloride ABG Glucose Oxyhemoglobin Sodium Potassium Chloride 97.4 L Carbon Dioxide 32 H BUN Creatinine 0.5 L Glucose 135 H POC Glucose 151 H 140 H Lactic Acid Calcium Phosphorus Magnesium AST ALT Lactate Dehydrogenase Total Bilirubin Direct Bilirubin CK-MB (CK-2) C-Reactive Protein NT-Pro-B Natriuret Pep Total Protein Albumin Arterial Blood Glucose Urine WBC (Auto) Urine Creatinine Digoxin 12/17/19 12/17/19 12/18/19 17:50 23:46 05:17 WBC RBC Hgb 8.8 L Hct 28.0 L MCHC RDW MCV MCH Lymph % (Auto) [place] % (Auto) [place] # Eos # Lymph # (Auto) [place] # (Auto) Eos # (Auto) Seg Neutrophils % Seg Neuts % (Manual) Baso # (Auto) Lymphocytes % (Manual) Monocytes % (Manual) Eosinophils % (Manual) Basophils % (Manual) Seg Neutrophils # Seg Neutrophils # Man Lymphocytes # (Manual) Monocytes # (Manual) Eosinophils # (Manual) Nucleated RBC % Basophils # (Manual) PT INR APTT Heparin Anti-Xa Level ABG pH POC ABG pO2 ABG pO2 ABG HCO3 ABG O2 Saturation ABG Base Excess POC ABG pCO2 ABG Hemoglobin ABG Oxyhemoglobin ABG Sodium ABG Chloride ABG Glucose Oxyhemoglobin Sodium Potassium Chloride Carbon Dioxide BUN Creatinine Glucose POC Glucose 158 H 150 H Lactic Acid Calcium Phosphorus Magnesium AST ALT Lactate Dehydrogenase Total Bilirubin Direct Bilirubin CK-MB (CK-2) C-Reactive Protein NT-Pro-B Natriuret Pep Total Protein Albumin Arterial Blood Glucose Urine WBC (Auto) Urine Creatinine Digoxin 12/18/19 12/18/19 12/18/19 05:17 05:49 11:12 WBC RBC Hgb Hct MCHC RDW MCV MCH Lymph % (Auto) [place] % (Auto) [place] # Eos # Lymph # (Auto) [place] # (Auto) Eos # (Auto) Seg Neutrophils % Seg Neuts % (Manual) Baso # (Auto) Lymphocytes % (Manual) Monocytes % (Manual) Eosinophils % (Manual) Basophils % (Manual) Seg Neutrophils # Seg Neutrophils # Man Lymphocytes # (Manual) Monocytes # (Manual) Eosinophils # (Manual) Nucleated RBC % Basophils # (Manual) PT INR APTT Heparin Anti-Xa Level 0.16 L ABG pH POC ABG pO2 ABG pO2 ABG HCO3 ABG O2 Saturation ABG Base Excess POC ABG pCO2 ABG Hemoglobin ABG Oxyhemoglobin ABG Sodium ABG Chloride ABG Glucose Oxyhemoglobin Sodium Potassium Chloride Carbon Dioxide BUN Creatinine Glucose POC Glucose 127 H 191 H Lactic Acid Calcium Phosphorus Magnesium AST ALT Lactate Dehydrogenase Total Bilirubin Direct Bilirubin CK-MB (CK-2) C-Reactive Protein NT-Pro-B Natriuret Pep Total Protein Albumin Arterial Blood Glucose Urine WBC (Auto) Urine Creatinine Digoxin 12/18/19 12/18/19 12/19/19 17:03 20:16 00:08 WBC RBC Hgb Hct MCHC RDW MCV MCH Lymph % (Auto) [place] % (Auto) [place] # Eos # Lymph # (Auto) [place] # (Auto) Eos # (Auto) Seg Neutrophils % Seg Neuts % (Manual) Baso # (Auto) Lymphocytes % (Manual) Monocytes % (Manual) Eosinophils % (Manual) Basophils % (Manual) Seg Neutrophils # Seg Neutrophils # Man Lymphocytes # (Manual) Monocytes # (Manual) Eosinophils # (Manual) Nucleated RBC % Basophils # (Manual) PT INR APTT Heparin Anti-Xa Level ABG pH POC ABG pO2 ABG pO2 ABG HCO3 ABG O2 Saturation ABG Base Excess POC ABG pCO2 ABG Hemoglobin ABG Oxyhemoglobin ABG Sodium ABG Chloride ABG Glucose Oxyhemoglobin Sodium Potassium Chloride Carbon Dioxide BUN Creatinine Glucose POC Glucose 133 H 128 H 129 H Lactic Acid Calcium Phosphorus Magnesium AST ALT Lactate Dehydrogenase Total Bilirubin Direct Bilirubin CK-MB (CK-2) C-Reactive Protein NT-Pro-B Natriuret Pep Total Protein Albumin Arterial Blood Glucose Urine WBC (Auto) Urine Creatinine Digoxin 12/19/19 12/19/19 12/19/19 04:45 04:45 05:35 WBC RBC Hgb Hct MCHC RDW MCV MCH Lymph % (Auto) [place] % (Auto) [place] # Eos # Lymph # (Auto) [place] # (Auto) Eos # (Auto) Seg Neutrophils % Seg Neuts % (Manual) Baso # (Auto) Lymphocytes % (Manual) Monocytes % (Manual) Eosinophils % (Manual) Basophils % (Manual) Seg Neutrophils # Seg Neutrophils # Man Lymphocytes # (Manual) Monocytes # (Manual) Eosinophils # (Manual) Nucleated RBC % Basophils # (Manual) PT INR APTT Heparin Anti-Xa Level 0.17 L ABG pH POC ABG pO2 ABG pO2 ABG HCO3 ABG O2 Saturation ABG Base Excess POC ABG pCO2 ABG Hemoglobin ABG Oxyhemoglobin ABG Sodium ABG Chloride ABG Glucose Oxyhemoglobin Sodium Potassium Chloride Carbon Dioxide BUN Creatinine Glucose POC Glucose 120 H Lactic Acid Calcium Phosphorus Magnesium AST ALT Lactate Dehydrogenase 228 H Total Bilirubin Direct Bilirubin CK-MB (CK-2) C-Reactive Protein NT-Pro-B Natriuret Pep Total Protein Albumin Arterial Blood Glucose Urine WBC (Auto) Urine Creatinine Digoxin 12/19/19 12/19/19 12/19/19 09:20 11:32 11:32 WBC 14.6 H RBC 3.08 L Hgb 9.0 L Hct 26.8 L MCHC RDW 15.9 H MCV MCH Lymph % (Auto) [place] % (Auto) [place] # Eos # Lymph # (Auto) [place] # (Auto) Eos # (Auto) Seg Neutrophils % Seg Neuts % (Manual) 82.0 H Baso # (Auto) Lymphocytes % (Manual) 10.0 L Monocytes % (Manual) Eosinophils % (Manual) Basophils % (Manual) Seg Neutrophils # Seg Neutrophils # Man 12.0 H Lymphocytes # (Manual) Monocytes # (Manual) 0.9 H Eosinophils # (Manual) Nucleated RBC % 1.0 H Basophils # (Manual) PT INR APTT Heparin Anti-Xa Level ABG pH 7.451 H POC ABG pO2 ABG pO2 62.6 L ABG HCO3 33.2 H ABG O2 Saturation 93.8 L ABG Base Excess 8.3 H POC ABG pCO2 ABG Hemoglobin 8.3 L ABG Oxyhemoglobin ABG Sodium ABG Chloride ABG Glucose Oxyhemoglobin 91.9 L Sodium Potassium Chloride 95.0 L Carbon Dioxide 33 H BUN 22 H Creatinine 0.6 L Glucose 150 H POC Glucose Lactic Acid Calcium Phosphorus Magnesium AST ALT Lactate Dehydrogenase Total Bilirubin Direct Bilirubin CK-MB (CK-2) C-Reactive Protein NT-Pro-B Natriuret Pep Total Protein 6.2 L Albumin 2.4 L Arterial Blood Glucose Urine WBC (Auto) Urine Creatinine Digoxin 12/19/19 12/19/19 12/20/19 11:56 18:17 00:09 WBC RBC Hgb Hct MCHC RDW MCV MCH Lymph % (Auto) [place] % (Auto) [place] # Eos # Lymph # (Auto) [place] # (Auto) Eos # (Auto) Seg Neutrophils % Seg Neuts % (Manual) Baso # (Auto) Lymphocytes % (Manual) Monocytes % (Manual) Eosinophils % (Manual) Basophils % (Manual) Seg Neutrophils # Seg Neutrophils # Man Lymphocytes # (Manual) Monocytes # (Manual) Eosinophils # (Manual) Nucleated RBC % Basophils # (Manual) PT INR APTT Heparin Anti-Xa Level ABG pH POC ABG pO2 ABG pO2 ABG HCO3 ABG O2 Saturation ABG Base Excess POC ABG pCO2 ABG Hemoglobin ABG Oxyhemoglobin ABG Sodium ABG Chloride ABG Glucose Oxyhemoglobin Sodium Potassium Chloride Carbon Dioxide BUN Creatinine Glucose POC Glucose 156 H 156 H 155 H Lactic Acid Calcium Phosphorus Magnesium AST ALT Lactate Dehydrogenase Total Bilirubin Direct Bilirubin CK-MB (CK-2) C-Reactive Protein NT-Pro-B Natriuret Pep Total Protein Albumin Arterial Blood Glucose Urine WBC (Auto) Urine Creatinine Digoxin 12/20/19 12/20/19 12/20/19 05:26 06:02 18:17 WBC RBC Hgb Hct MCHC RDW MCV MCH Lymph % (Auto) [place] % (Auto) [place] # Eos # Lymph # (Auto) [place] # (Auto) Eos # (Auto) Seg Neutrophils % Seg Neuts % (Manual) Baso # (Auto) Lymphocytes % (Manual) Monocytes % (Manual) Eosinophils % (Manual) Basophils % (Manual) Seg Neutrophils # Seg Neutrophils # Man Lymphocytes # (Manual) Monocytes # (Manual) Eosinophils # (Manual) Nucleated RBC % Basophils # (Manual) PT INR APTT Heparin Anti-Xa Level 0.19 L ABG pH POC ABG pO2 ABG pO2 ABG HCO3 ABG O2 Saturation ABG Base Excess POC ABG pCO2 ABG Hemoglobin ABG Oxyhemoglobin ABG Sodium ABG Chloride ABG Glucose Oxyhemoglobin Sodium Potassium Chloride Carbon Dioxide BUN Creatinine Glucose POC Glucose 137 H 128 H Lactic Acid Calcium Phosphorus Magnesium AST ALT Lactate Dehydrogenase Total Bilirubin Direct Bilirubin CK-MB (CK-2) C-Reactive Protein NT-Pro-B Natriuret Pep Total Protein Albumin Arterial Blood Glucose Urine WBC (Auto) Urine Creatinine Digoxin 12/20/19 12/21/19 12/21/19 23:34 05:31 05:31 WBC 12.7 H RBC 3.09 L Hgb 8.9 L Hct 27.4 L MCHC RDW 15.8 H MCV MCH Lymph % (Auto) 12.1 L [place] % (Auto) 7.8 H [place] # Eos # Lymph # (Auto) [place] # (Auto) 1.0 H Eos # (Auto) Seg Neutrophils % 77.1 H Seg Neuts % (Manual) Baso # (Auto) Lymphocytes % (Manual) Monocytes % (Manual) Eosinophils % (Manual) Basophils % (Manual) Seg Neutrophils # 9.8 H Seg Neutrophils # Man Lymphocytes # (Manual) Monocytes # (Manual) Eosinophils # (Manual) Nucleated RBC % Basophils # (Manual) PT INR APTT Heparin Anti-Xa Level ABG pH POC ABG pO2 ABG pO2 ABG HCO3 ABG O2 Saturation ABG Base Excess POC ABG pCO2 ABG Hemoglobin ABG Oxyhemoglobin ABG Sodium ABG Chloride ABG Glucose Oxyhemoglobin Sodium Potassium Chloride 96.9 L Carbon Dioxide 37 H BUN 27 H Creatinine 0.7 L Glucose 140 H POC Glucose 145 H Lactic Acid Calcium Phosphorus Magnesium AST ALT Lactate Dehydrogenase Total Bilirubin Direct Bilirubin CK-MB (CK-2) C-Reactive Protein NT-Pro-B Natriuret Pep Total Protein Albumin Arterial Blood Glucose Urine WBC (Auto) Urine Creatinine Digoxin 12/21/19 12/21/19 12/21/19 05:38 10:13 11:51 WBC RBC Hgb Hct MCHC RDW MCV MCH Lymph % (Auto) [place] % (Auto) [place] # Eos # Lymph # (Auto) [place] # (Auto) Eos # (Auto) Seg Neutrophils % Seg Neuts % (Manual) Baso # (Auto) Lymphocytes % (Manual) Monocytes % (Manual) Eosinophils % (Manual) Basophils % (Manual) Seg Neutrophils # Seg Neutrophils # Man Lymphocytes # (Manual) Monocytes # (Manual) Eosinophils # (Manual) Nucleated RBC % Basophils # (Manual) PT INR APTT 23.9 L Heparin Anti-Xa Level < 0.10 L ABG pH POC ABG pO2 ABG pO2 ABG HCO3 ABG O2 Saturation ABG Base Excess POC ABG pCO2 ABG Hemoglobin ABG Oxyhemoglobin ABG Sodium ABG Chloride ABG Glucose Oxyhemoglobin Sodium Potassium Chloride Carbon Dioxide BUN Creatinine Glucose POC Glucose 151 H 145 H Lactic Acid Calcium Phosphorus Magnesium AST ALT Lactate Dehydrogenase Total Bilirubin Direct Bilirubin CK-MB (CK-2) C-Reactive Protein NT-Pro-B Natriuret Pep Total Protein Albumin Arterial Blood Glucose Urine WBC (Auto) Urine Creatinine Digoxin 12/21/19 12/22/19 12/22/19 17:16 00:01 01:33 WBC RBC Hgb Hct MCHC RDW MCV MCH Lymph % (Auto) [place] % (Auto) [place] # Eos # Lymph # (Auto) [place] # (Auto) Eos # (Auto) Seg Neutrophils % Seg Neuts % (Manual) Baso # (Auto) Lymphocytes % (Manual) Monocytes % (Manual) Eosinophils % (Manual) Basophils % (Manual) Seg Neutrophils # Seg Neutrophils # Man Lymphocytes # (Manual) Monocytes # (Manual) Eosinophils # (Manual) Nucleated RBC % Basophils # (Manual) PT INR APTT Heparin Anti-Xa Level 0.10 L ABG pH POC ABG pO2 ABG pO2 ABG HCO3 ABG O2 Saturation ABG Base Excess POC ABG pCO2 ABG Hemoglobin ABG Oxyhemoglobin ABG Sodium ABG Chloride ABG Glucose Oxyhemoglobin Sodium Potassium Chloride Carbon Dioxide BUN Creatinine Glucose POC Glucose 167 H 179 H Lactic Acid Calcium Phosphorus Magnesium AST ALT Lactate Dehydrogenase Total Bilirubin Direct Bilirubin CK-MB (CK-2) C-Reactive Protein NT-Pro-B Natriuret Pep Total Protein Albumin Arterial Blood Glucose Urine WBC (Auto) Urine Creatinine Digoxin 12/22/19 12/22/19 12/22/19 03:22 05:10 05:10 WBC 13.8 H RBC 3.20 L Hgb 8.9 L Hct 28.1 L MCHC RDW 15.9 H MCV MCH Lymph % (Auto) [place] % (Auto) [place] # Eos # Lymph # (Auto) [place] # (Auto) Eos # (Auto) Seg Neutrophils % Seg Neuts % (Manual) Baso # (Auto) Lymphocytes % (Manual) Monocytes % (Manual) Eosinophils % (Manual) Basophils % (Manual) Seg Neutrophils # Seg Neutrophils # Man Lymphocytes # (Manual) Monocytes # (Manual) Eosinophils # (Manual) Nucleated RBC % Basophils # (Manual) PT INR APTT Heparin Anti-Xa Level ABG pH POC ABG pO2 52.3 L ABG pO2 ABG HCO3 ABG O2 Saturation ABG Base Excess POC ABG pCO2 52.9 H ABG Hemoglobin 10.7 L ABG Oxyhemoglobin 84 L ABG Sodium ABG Chloride ABG Glucose Oxyhemoglobin Sodium Potassium Chloride 96.6 L Carbon Dioxide BUN 25 H Creatinine 0.7 L Glucose 129 H POC Glucose Lactic Acid Calcium Phosphorus Magnesium AST ALT Lactate Dehydrogenase Total Bilirubin Direct Bilirubin CK-MB (CK-2) C-Reactive Protein NT-Pro-B Natriuret Pep Total Protein Albumin Arterial Blood Glucose Urine WBC (Auto) Urine Creatinine Digoxin 12/22/19 12/22/19 12/22/19 05:18 12:32 12:43 WBC RBC Hgb Hct MCHC RDW MCV MCH Lymph % (Auto) [place] % (Auto) [place] # Eos # Lymph # (Auto) [place] # (Auto) Eos # (Auto) Seg Neutrophils % Seg Neuts % (Manual) Baso # (Auto) Lymphocytes % (Manual) Monocytes % (Manual) Eosinophils % (Manual) Basophils % (Manual) Seg Neutrophils # Seg Neutrophils # Man Lymphocytes # (Manual) Monocytes # (Manual) Eosinophils # (Manual) Nucleated RBC % Basophils # (Manual) PT INR APTT Heparin Anti-Xa Level 0.18 L ABG pH POC ABG pO2 ABG pO2 ABG HCO3 ABG O2 Saturation ABG Base Excess POC ABG pCO2 ABG Hemoglobin ABG Oxyhemoglobin ABG Sodium ABG Chloride ABG Glucose Oxyhemoglobin Sodium Potassium Chloride Carbon Dioxide BUN Creatinine Glucose POC Glucose 131 H 208 H Lactic Acid Calcium Phosphorus Magnesium AST ALT Lactate Dehydrogenase Total Bilirubin Direct Bilirubin CK-MB (CK-2) C-Reactive Protein NT-Pro-B Natriuret Pep Total Protein Albumin Arterial Blood Glucose Urine WBC (Auto) Urine Creatinine Digoxin 12/22/19 12/22/19 12/23/19 17:44 23:20 03:51 WBC 15.2 H RBC 3.43 L Hgb 9.6 L Hct 30.3 L MCHC RDW 15.9 H MCV MCH Lymph % (Auto) [place] % (Auto) [place] # Eos # Lymph # (Auto) [place] # (Auto) Eos # (Auto) Seg Neutrophils % Seg Neuts % (Manual) Baso # (Auto) Lymphocytes % (Manual) Monocytes % (Manual) Eosinophils % (Manual) Basophils % (Manual) Seg Neutrophils # Seg Neutrophils # Man Lymphocytes # (Manual) Monocytes # (Manual) Eosinophils # (Manual) Nucleated RBC % Basophils # (Manual) PT INR APTT Heparin Anti-Xa Level ABG pH POC ABG pO2 ABG pO2 ABG HCO3 ABG O2 Saturation ABG Base Excess POC ABG pCO2 ABG Hemoglobin ABG Oxyhemoglobin ABG Sodium ABG Chloride ABG Glucose Oxyhemoglobin Sodium Potassium Chloride Carbon Dioxide BUN Creatinine Glucose POC Glucose 209 H 119 H Lactic Acid Calcium Phosphorus Magnesium AST ALT Lactate Dehydrogenase Total Bilirubin Direct Bilirubin CK-MB (CK-2) C-Reactive Protein NT-Pro-B Natriuret Pep Total Protein Albumin Arterial Blood Glucose Urine WBC (Auto) Urine Creatinine Digoxin 12/23/19 12/23/19 12/23/19 03:51 05:31 12:09 WBC RBC Hgb Hct MCHC RDW MCV MCH Lymph % (Auto) [place] % (Auto) [place] # Eos # Lymph # (Auto) [place] # (Auto) Eos # (Auto) Seg Neutrophils % Seg Neuts % (Manual) Baso # (Auto) Lymphocytes % (Manual) Monocytes % (Manual) Eosinophils % (Manual) Basophils % (Manual) Seg Neutrophils # Seg Neutrophils # Man Lymphocytes # (Manual) Monocytes # (Manual) Eosinophils # (Manual) Nucleated RBC % Basophils # (Manual) PT INR APTT Heparin Anti-Xa Level ABG pH POC ABG pO2 ABG pO2 ABG HCO3 ABG O2 Saturation ABG Base Excess POC ABG pCO2 ABG Hemoglobin ABG Oxyhemoglobin ABG Sodium ABG Chloride ABG Glucose Oxyhemoglobin Sodium Potassium Chloride 97.2 L Carbon Dioxide 31 H BUN 23 H Creatinine 0.6 L Glucose 153 H POC Glucose 149 H 144 H Lactic Acid Calcium Phosphorus Magnesium AST ALT Lactate Dehydrogenase Total Bilirubin Direct Bilirubin CK-MB (CK-2) C-Reactive Protein NT-Pro-B Natriuret Pep Total Protein Albumin Arterial Blood Glucose Urine WBC (Auto) Urine Creatinine Digoxin 12/23/19 12/23/19 12/23/19 15:30 17:49 23:31 WBC RBC Hgb Hct MCHC RDW MCV MCH Lymph % (Auto) [place] % (Auto) [place] # Eos # Lymph # (Auto) [place] # (Auto) Eos # (Auto) Seg Neutrophils % Seg Neuts % (Manual) Baso # (Auto) Lymphocytes % (Manual) Monocytes % (Manual) Eosinophils % (Manual) Basophils % (Manual) Seg Neutrophils # Seg Neutrophils # Man Lymphocytes # (Manual) Monocytes # (Manual) Eosinophils # (Manual) Nucleated RBC % Basophils # (Manual) PT INR APTT Heparin Anti-Xa Level 0.21 L ABG pH POC ABG pO2 ABG pO2 ABG HCO3 ABG O2 Saturation ABG Base Excess POC ABG pCO2 ABG Hemoglobin ABG Oxyhemoglobin ABG Sodium ABG Chloride ABG Glucose Oxyhemoglobin Sodium Potassium Chloride Carbon Dioxide BUN Creatinine Glucose POC Glucose 192 H 151 H Lactic Acid Calcium Phosphorus Magnesium AST ALT Lactate Dehydrogenase Total Bilirubin Direct Bilirubin CK-MB (CK-2) C-Reactive Protein NT-Pro-B Natriuret Pep Total Protein Albumin Arterial Blood Glucose Urine WBC (Auto) Urine Creatinine Digoxin 12/24/19 12/24/19 12/24/19 05:34 12:13 16:50 WBC RBC Hgb Hct MCHC RDW MCV MCH Lymph % (Auto) [place] % (Auto) [place] # Eos # Lymph # (Auto) [place] # (Auto) Eos # (Auto) Seg Neutrophils % Seg Neuts % (Manual) Baso # (Auto) Lymphocytes % (Manual) Monocytes % (Manual) Eosinophils % (Manual) Basophils % (Manual) Seg Neutrophils # Seg Neutrophils # Man Lymphocytes # (Manual) Monocytes # (Manual) Eosinophils # (Manual) Nucleated RBC % Basophils # (Manual) PT INR APTT Heparin Anti-Xa Level 0.16 L ABG pH POC ABG pO2 ABG pO2 ABG HCO3 ABG O2 Saturation ABG Base Excess POC ABG pCO2 ABG Hemoglobin ABG Oxyhemoglobin ABG Sodium ABG Chloride ABG Glucose Oxyhemoglobin Sodium Potassium Chloride Carbon Dioxide BUN Creatinine Glucose POC Glucose 145 H 124 H Lactic Acid Calcium Phosphorus Magnesium AST ALT Lactate Dehydrogenase Total Bilirubin Direct Bilirubin CK-MB (CK-2) C-Reactive Protein NT-Pro-B Natriuret Pep Total Protein Albumin Arterial Blood Glucose Urine WBC (Auto) Urine Creatinine Digoxin 12/24/19 12/25/19 12/25/19 17:53 00:14 04:18 WBC 12.9 H RBC 3.30 L Hgb 9.1 L Hct 28.8 L MCHC RDW 16.4 H MCV MCH Lymph % (Auto) [place] % (Auto) 7.8 H [place] # Eos # Lymph # (Auto) [place] # (Auto) 1.0 H Eos # (Auto) Seg Neutrophils % 75.5 H Seg Neuts % (Manual) Baso # (Auto) Lymphocytes % (Manual) Monocytes % (Manual) Eosinophils % (Manual) Basophils % (Manual) Seg Neutrophils # 9.7 H Seg Neutrophils # Man Lymphocytes # (Manual) Monocytes # (Manual) Eosinophils # (Manual) Nucleated RBC % Basophils # (Manual) PT INR APTT Heparin Anti-Xa Level ABG pH POC ABG pO2 ABG pO2 ABG HCO3 ABG O2 Saturation ABG Base Excess POC ABG pCO2 ABG Hemoglobin ABG Oxyhemoglobin ABG Sodium ABG Chloride ABG Glucose Oxyhemoglobin Sodium Potassium Chloride Carbon Dioxide BUN Creatinine Glucose POC Glucose 164 H 148 H Lactic Acid Calcium Phosphorus Magnesium AST ALT Lactate Dehydrogenase Total Bilirubin Direct Bilirubin CK-MB (CK-2) C-Reactive Protein NT-Pro-B Natriuret Pep Total Protein Albumin Arterial Blood Glucose Urine WBC (Auto) Urine Creatinine Digoxin 12/25/19 12/25/19 12/25/19 04:18 05:38 11:44 WBC RBC Hgb Hct MCHC RDW MCV MCH Lymph % (Auto) [place] % (Auto) [place] # Eos # Lymph # (Auto) [place] # (Auto) Eos # (Auto) Seg Neutrophils % Seg Neuts % (Manual) Baso # (Auto) Lymphocytes % (Manual) Monocytes % (Manual) Eosinophils % (Manual) Basophils % (Manual) Seg Neutrophils # Seg Neutrophils # Man Lymphocytes # (Manual) Monocytes # (Manual) Eosinophils # (Manual) Nucleated RBC % Basophils # (Manual) PT INR APTT Heparin Anti-Xa Level ABG pH POC ABG pO2 ABG pO2 ABG HCO3 ABG O2 Saturation ABG Base Excess POC ABG pCO2 ABG Hemoglobin ABG Oxyhemoglobin ABG Sodium ABG Chloride ABG Glucose Oxyhemoglobin Sodium Potassium Chloride Carbon Dioxide 33 H BUN 27 H Creatinine 0.6 L Glucose 132 H POC Glucose 152 H 166 H Lactic Acid Calcium Phosphorus Magnesium AST ALT Lactate Dehydrogenase Total Bilirubin Direct Bilirubin CK-MB (CK-2) C-Reactive Protein NT-Pro-B Natriuret Pep Total Protein Albumin Arterial Blood Glucose Urine WBC (Auto) Urine Creatinine Digoxin 12/25/19 12/26/19 12/26/19 18:29 00:17 00:18 WBC RBC Hgb Hct MCHC RDW MCV MCH Lymph % (Auto) [place] % (Auto) [place] # Eos # Lymph # (Auto) [place] # (Auto) Eos # (Auto) Seg Neutrophils % Seg Neuts % (Manual) Baso # (Auto) Lymphocytes % (Manual) Monocytes % (Manual) Eosinophils % (Manual) Basophils % (Manual) Seg Neutrophils # Seg Neutrophils # Man Lymphocytes # (Manual) Monocytes # (Manual) Eosinophils # (Manual) Nucleated RBC % Basophils # (Manual) PT INR APTT Heparin Anti-Xa Level ABG pH POC ABG pO2 ABG pO2 ABG HCO3 ABG O2 Saturation ABG Base Excess POC ABG pCO2 ABG Hemoglobin ABG Oxyhemoglobin ABG Sodium ABG Chloride ABG Glucose Oxyhemoglobin Sodium Potassium Chloride 97.8 L Carbon Dioxide BUN 25 H Creatinine 0.6 L Glucose 140 H POC Glucose 194 H 151 H Lactic Acid Calcium Phosphorus Magnesium AST ALT Lactate Dehydrogenase Total Bilirubin Direct Bilirubin CK-MB (CK-2) C-Reactive Protein NT-Pro-B Natriuret Pep Total Protein Albumin Arterial Blood Glucose Urine WBC (Auto) Urine Creatinine Digoxin 12/26/19 12/26/19 12/26/19 05:36 11:41 17:50 WBC RBC Hgb Hct MCHC RDW MCV MCH Lymph % (Auto) [place] % (Auto) [place] # Eos # Lymph # (Auto) [place] # (Auto) Eos # (Auto) Seg Neutrophils % Seg Neuts % (Manual) Baso # (Auto) Lymphocytes % (Manual) Monocytes % (Manual) Eosinophils % (Manual) Basophils % (Manual) Seg Neutrophils # Seg Neutrophils # Man Lymphocytes # (Manual) Monocytes # (Manual) Eosinophils # (Manual) Nucleated RBC % Basophils # (Manual) PT INR APTT Heparin Anti-Xa Level ABG pH POC ABG pO2 ABG pO2 ABG HCO3 ABG O2 Saturation ABG Base Excess POC ABG pCO2 ABG Hemoglobin ABG Oxyhemoglobin ABG Sodium ABG Chloride ABG Glucose Oxyhemoglobin Sodium Potassium Chloride Carbon Dioxide BUN Creatinine Glucose POC Glucose 156 H 148 H 139 H Lactic Acid Calcium Phosphorus Magnesium AST ALT Lactate Dehydrogenase Total Bilirubin Direct Bilirubin CK-MB (CK-2) C-Reactive Protein NT-Pro-B Natriuret Pep Total Protein Albumin Arterial Blood Glucose Urine WBC (Auto) Urine Creatinine Digoxin 12/26/19 12/27/19 12/27/19 23:19 05:34 12:02 WBC RBC Hgb Hct MCHC RDW MCV MCH Lymph % (Auto) [place] % (Auto) [place] # Eos # Lymph # (Auto) [place] # (Auto) Eos # (Auto) Seg Neutrophils % Seg Neuts % (Manual) Baso # (Auto) Lymphocytes % (Manual) Monocytes % (Manual) Eosinophils % (Manual) Basophils % (Manual) Seg Neutrophils # Seg Neutrophils # Man Lymphocytes # (Manual) Monocytes # (Manual) Eosinophils # (Manual) Nucleated RBC % Basophils # (Manual) PT INR APTT Heparin Anti-Xa Level ABG pH POC ABG pO2 ABG pO2 ABG HCO3 ABG O2 Saturation ABG Base Excess POC ABG pCO2 ABG Hemoglobin ABG Oxyhemoglobin ABG Sodium ABG Chloride ABG Glucose Oxyhemoglobin Sodium Potassium Chloride Carbon Dioxide BUN Creatinine Glucose POC Glucose 161 H 145 H 157 H Lactic Acid Calcium Phosphorus Magnesium AST ALT Lactate Dehydrogenase Total Bilirubin Direct Bilirubin CK-MB (CK-2) C-Reactive Protein NT-Pro-B Natriuret Pep Total Protein Albumin Arterial Blood Glucose Urine WBC (Auto) Urine Creatinine Digoxin 12/27/19 12/27/19 12/27/19 17:35 20:11 23:00 WBC RBC Hgb Hct MCHC RDW MCV MCH Lymph % (Auto) [place] % (Auto) [place] # Eos # Lymph # (Auto) [place] # (Auto) Eos # (Auto) Seg Neutrophils % Seg Neuts % (Manual) Baso # (Auto) Lymphocytes % (Manual) Monocytes % (Manual) Eosinophils % (Manual) Basophils % (Manual) Seg Neutrophils # Seg Neutrophils # Man Lymphocytes # (Manual) Monocytes # (Manual) Eosinophils # (Manual) Nucleated RBC % Basophils # (Manual) PT INR APTT Heparin Anti-Xa Level 0.19 L ABG pH POC ABG pO2 ABG pO2 ABG HCO3 ABG O2 Saturation ABG Base Excess POC ABG pCO2 ABG Hemoglobin ABG Oxyhemoglobin ABG Sodium ABG Chloride ABG Glucose Oxyhemoglobin Sodium Potassium Chloride Carbon Dioxide BUN Creatinine Glucose POC Glucose 158 H 155 H Lactic Acid Calcium Phosphorus Magnesium AST ALT Lactate Dehydrogenase Total Bilirubin Direct Bilirubin CK-MB (CK-2) C-Reactive Protein NT-Pro-B Natriuret Pep Total Protein Albumin Arterial Blood Glucose Urine WBC (Auto) Urine Creatinine Digoxin 12/27/19 12/28/19 12/28/19 23:45 02:41 02:41 WBC 13.0 H RBC 3.48 L Hgb 9.5 L Hct 30.6 L MCHC 31 L RDW 16.6 H MCV MCH 27 L Lymph % (Auto) 13.0 L [place] % (Auto) 8.0 H [place] # Eos # Lymph # (Auto) [place] # (Auto) 1.0 H Eos # (Auto) Seg Neutrophils % 76.3 H Seg Neuts % (Manual) Baso # (Auto) Lymphocytes % (Manual) Monocytes % (Manual) Eosinophils % (Manual) Basophils % (Manual) Seg Neutrophils # 9.9 H Seg Neutrophils # Man Lymphocytes # (Manual) Monocytes # (Manual) Eosinophils # (Manual) Nucleated RBC % Basophils # (Manual) PT INR APTT Heparin Anti-Xa Level ABG pH POC ABG pO2 ABG pO2 ABG HCO3 ABG O2 Saturation ABG Base Excess POC ABG pCO2 ABG Hemoglobin ABG Oxyhemoglobin ABG Sodium ABG Chloride ABG Glucose Oxyhemoglobin Sodium Potassium Chloride Carbon Dioxide BUN 22 H Creatinine 0.6 L Glucose 101 H POC Glucose 130 H Lactic Acid Calcium Phosphorus Magnesium AST ALT Lactate Dehydrogenase Total Bilirubin Direct Bilirubin CK-MB (CK-2) C-Reactive Protein NT-Pro-B Natriuret Pep Total Protein Albumin Arterial Blood Glucose Urine WBC (Auto) Urine Creatinine Digoxin 12/28/19 12/28/19 12/28/19 06:00 12:34 18:13 WBC RBC Hgb Hct MCHC RDW MCV MCH Lymph % (Auto) [place] % (Auto) [place] # Eos # Lymph # (Auto) [place] # (Auto) Eos # (Auto) Seg Neutrophils % Seg Neuts % (Manual) Baso # (Auto) Lymphocytes % (Manual) Monocytes % (Manual) Eosinophils % (Manual) Basophils % (Manual) Seg Neutrophils # Seg Neutrophils # Man Lymphocytes # (Manual) Monocytes # (Manual) Eosinophils # (Manual) Nucleated RBC % Basophils # (Manual) PT INR APTT Heparin Anti-Xa Level ABG pH POC ABG pO2 ABG pO2 ABG HCO3 ABG O2 Saturation ABG Base Excess POC ABG pCO2 ABG Hemoglobin ABG Oxyhemoglobin ABG Sodium ABG Chloride ABG Glucose Oxyhemoglobin Sodium Potassium Chloride Carbon Dioxide BUN Creatinine Glucose POC Glucose 150 H 161 H 128 H Lactic Acid Calcium Phosphorus Magnesium AST ALT Lactate Dehydrogenase Total Bilirubin Direct Bilirubin CK-MB (CK-2) C-Reactive Protein NT-Pro-B Natriuret Pep Total Protein Albumin Arterial Blood Glucose Urine WBC (Auto) Urine Creatinine Digoxin 12/28/19 12/29/19 12/29/19 23:36 05:21 11:40 WBC RBC Hgb Hct MCHC RDW MCV MCH Lymph % (Auto) [place] % (Auto) [place] # Eos # Lymph # (Auto) [place] # (Auto) Eos # (Auto) Seg Neutrophils % Seg Neuts % (Manual) Baso # (Auto) Lymphocytes % (Manual) Monocytes % (Manual) Eosinophils % (Manual) Basophils % (Manual) Seg Neutrophils # Seg Neutrophils # Man Lymphocytes # (Manual) Monocytes # (Manual) Eosinophils # (Manual) Nucleated RBC % Basophils # (Manual) PT INR APTT Heparin Anti-Xa Level ABG pH POC ABG pO2 ABG pO2 ABG HCO3 ABG O2 Saturation ABG Base Excess POC ABG pCO2 ABG Hemoglobin ABG Oxyhemoglobin ABG Sodium ABG Chloride ABG Glucose Oxyhemoglobin Sodium Potassium Chloride Carbon Dioxide BUN Creatinine Glucose POC Glucose 137 H 136 H 166 H Lactic Acid Calcium Phosphorus Magnesium AST ALT Lactate Dehydrogenase Total Bilirubin Direct Bilirubin CK-MB (CK-2) C-Reactive Protein NT-Pro-B Natriuret Pep Total Protein Albumin Arterial Blood Glucose Urine WBC (Auto) Urine Creatinine Digoxin 12/29/19 12/29/19 12/29/19 17:23 19:21 23:38 WBC RBC Hgb Hct MCHC RDW MCV MCH Lymph % (Auto) [place] % (Auto) [place] # Eos # Lymph # (Auto) [place] # (Auto) Eos # (Auto) Seg Neutrophils % Seg Neuts % (Manual) Baso # (Auto) Lymphocytes % (Manual) Monocytes % (Manual) Eosinophils % (Manual) Basophils % (Manual) Seg Neutrophils # Seg Neutrophils # Man Lymphocytes # (Manual) Monocytes # (Manual) Eosinophils # (Manual) Nucleated RBC % Basophils # (Manual) PT INR APTT Heparin Anti-Xa Level 0.20 L ABG pH POC ABG pO2 ABG pO2 ABG HCO3 ABG O2 Saturation ABG Base Excess POC ABG pCO2 ABG Hemoglobin ABG Oxyhemoglobin ABG Sodium ABG Chloride ABG Glucose Oxyhemoglobin Sodium Potassium Chloride Carbon Dioxide BUN Creatinine Glucose POC Glucose 144 H 141 H Lactic Acid Calcium Phosphorus Magnesium AST ALT Lactate Dehydrogenase Total Bilirubin Direct Bilirubin CK-MB (CK-2) C-Reactive Protein NT-Pro-B Natriuret Pep Total Protein Albumin Arterial Blood Glucose Urine WBC (Auto) Urine Creatinine Digoxin 12/30/19 12/30/19 12/30/19 03:58 03:58 04:59 WBC RBC 3.54 L Hgb 9.8 L Hct 30.7 L MCHC RDW 16.8 H MCV MCH Lymph % (Auto) [place] % (Auto) [place] # Eos # Lymph # (Auto) [place] # (Auto) Eos # (Auto) Seg Neutrophils % Seg Neuts % (Manual) Baso # (Auto) Lymphocytes % (Manual) Monocytes % (Manual) Eosinophils % (Manual) Basophils % (Manual) Seg Neutrophils # Seg Neutrophils # Man Lymphocytes # (Manual) Monocytes # (Manual) Eosinophils # (Manual) Nucleated RBC % Basophils # (Manual) PT INR APTT Heparin Anti-Xa Level ABG pH POC ABG pO2 ABG pO2 ABG HCO3 29.8 H ABG O2 Saturation ABG Base Excess 4.8 H POC ABG pCO2 ABG Hemoglobin 11.2 L ABG Oxyhemoglobin ABG Sodium ABG Chloride ABG Glucose Oxyhemoglobin 93.8 L Sodium Potassium Chloride 97.8 L Carbon Dioxide BUN 26 H Creatinine Glucose 168 H POC Glucose Lactic Acid Calcium Phosphorus Magnesium AST ALT Lactate Dehydrogenase Total Bilirubin Direct Bilirubin CK-MB (CK-2) C-Reactive Protein NT-Pro-B Natriuret Pep Total Protein Albumin Arterial Blood Glucose Urine WBC (Auto) Urine Creatinine Digoxin 12/30/19 12/30/19 12/30/19 05:45 11:34 17:28 WBC RBC Hgb Hct MCHC RDW MCV MCH Lymph % (Auto) [place] % (Auto) [place] # Eos # Lymph # (Auto) [place] # (Auto) Eos # (Auto) Seg Neutrophils % Seg Neuts % (Manual) Baso # (Auto) Lymphocytes % (Manual) Monocytes % (Manual) Eosinophils % (Manual) Basophils % (Manual) Seg Neutrophils # Seg Neutrophils # Man Lymphocytes # (Manual) Monocytes # (Manual) Eosinophils # (Manual) Nucleated RBC % Basophils # (Manual) PT INR APTT Heparin Anti-Xa Level ABG pH POC ABG pO2 ABG pO2 ABG HCO3 ABG O2 Saturation ABG Base Excess POC ABG pCO2 ABG Hemoglobin ABG Oxyhemoglobin ABG Sodium ABG Chloride ABG Glucose Oxyhemoglobin Sodium Potassium Chloride Carbon Dioxide BUN Creatinine Glucose POC Glucose 163 H 180 H 150 H Lactic Acid Calcium Phosphorus Magnesium AST ALT Lactate Dehydrogenase Total Bilirubin Direct Bilirubin CK-MB (CK-2) C-Reactive Protein NT-Pro-B Natriuret Pep Total Protein Albumin Arterial Blood Glucose Urine WBC (Auto) Urine Creatinine Digoxin 12/30/19 12/31/19 12/31/19 23:43 04:55 05:07 WBC RBC Hgb Hct MCHC RDW MCV MCH Lymph % (Auto) [place] % (Auto) [place] # Eos # Lymph # (Auto) [place] # (Auto) Eos # (Auto) Seg Neutrophils % Seg Neuts % (Manual) Baso # (Auto) Lymphocytes % (Manual) Monocytes % (Manual) Eosinophils % (Manual) Basophils % (Manual) Seg Neutrophils # Seg Neutrophils # Man Lymphocytes # (Manual) Monocytes # (Manual) Eosinophils # (Manual) Nucleated RBC % Basophils # (Manual) PT INR APTT Heparin Anti-Xa Level ABG pH POC ABG pO2 ABG pO2 ABG HCO3 ABG O2 Saturation ABG Base Excess POC ABG pCO2 ABG Hemoglobin ABG Oxyhemoglobin ABG Sodium ABG Chloride ABG Glucose Oxyhemoglobin Sodium Potassium 5.6 H D Chloride Carbon Dioxide BUN 33 H Creatinine Glucose 131 H POC Glucose 142 H 134 H Lactic Acid Calcium Phosphorus Magnesium AST ALT Lactate Dehydrogenase Total Bilirubin Direct Bilirubin CK-MB (CK-2) C-Reactive Protein NT-Pro-B Natriuret Pep Total Protein Albumin Arterial Blood Glucose Urine WBC (Auto) Urine Creatinine Digoxin 12/31/19 12/31/19 12/31/19 11:30 17:19 17:36 WBC RBC Hgb Hct MCHC RDW MCV MCH Lymph % (Auto) [place] % (Auto) [place] # Eos # Lymph # (Auto) [place] # (Auto) Eos # (Auto) Seg Neutrophils % Seg Neuts % (Manual) Baso # (Auto) Lymphocytes % (Manual) Monocytes % (Manual) Eosinophils % (Manual) Basophils % (Manual) Seg Neutrophils # Seg Neutrophils # Man Lymphocytes # (Manual) Monocytes # (Manual) Eosinophils # (Manual) Nucleated RBC % Basophils # (Manual) PT INR APTT Heparin Anti-Xa Level ABG pH POC ABG pO2 ABG pO2 ABG HCO3 ABG O2 Saturation ABG Base Excess POC ABG pCO2 ABG Hemoglobin ABG Oxyhemoglobin ABG Sodium ABG Chloride ABG Glucose Oxyhemoglobin Sodium Potassium Chloride Carbon Dioxide BUN 35 H Creatinine Glucose 156 H POC Glucose 158 H 181 H Lactic Acid Calcium Phosphorus Magnesium AST ALT Lactate Dehydrogenase Total Bilirubin Direct Bilirubin CK-MB (CK-2) C-Reactive Protein NT-Pro-B Natriuret Pep Total Protein Albumin Arterial Blood Glucose Urine WBC (Auto) Urine Creatinine Digoxin 12/31/19 12/31/19 12/31/19 18:16 19:41 21:53 WBC RBC Hgb Hct MCHC RDW MCV MCH Lymph % (Auto) [place] % (Auto) [place] # Eos # Lymph # (Auto) [place] # (Auto) Eos # (Auto) Seg Neutrophils % Seg Neuts % (Manual) Baso # (Auto) Lymphocytes % (Manual) Monocytes % (Manual) Eosinophils % (Manual) Basophils % (Manual) Seg Neutrophils # Seg Neutrophils # Man Lymphocytes # (Manual) Monocytes # (Manual) Eosinophils # (Manual) Nucleated RBC % Basophils # (Manual) PT INR APTT Heparin Anti-Xa Level 0.20 L ABG pH POC ABG pO2 ABG pO2 ABG HCO3 ABG O2 Saturation ABG Base Excess POC ABG pCO2 ABG Hemoglobin ABG Oxyhemoglobin ABG Sodium ABG Chloride ABG Glucose Oxyhemoglobin Sodium Potassium Chloride Carbon Dioxide BUN 34 H Creatinine Glucose 169 H POC Glucose 141 H Lactic Acid Calcium Phosphorus Magnesium AST ALT Lactate Dehydrogenase Total Bilirubin Direct Bilirubin CK-MB (CK-2) C-Reactive Protein NT-Pro-B Natriuret Pep Total Protein Albumin Arterial Blood Glucose Urine WBC (Auto) Urine Creatinine Digoxin 12/31/19 01/01/20 01/01/20 23:51 05:17 10:40 WBC RBC Hgb Hct MCHC RDW MCV MCH Lymph % (Auto) [place] % (Auto) [place] # Eos # Lymph # (Auto) [place] # (Auto) Eos # (Auto) Seg Neutrophils % Seg Neuts % (Manual) Baso # (Auto) Lymphocytes % (Manual) Monocytes % (Manual) Eosinophils % (Manual) Basophils % (Manual) Seg Neutrophils # Seg Neutrophils # Man Lymphocytes # (Manual) Monocytes # (Manual) Eosinophils # (Manual) Nucleated RBC % Basophils # (Manual) PT INR APTT Heparin Anti-Xa Level ABG pH POC ABG pO2 ABG pO2 ABG HCO3 ABG O2 Saturation ABG Base Excess POC ABG pCO2 ABG Hemoglobin ABG Oxyhemoglobin ABG Sodium ABG Chloride ABG Glucose Oxyhemoglobin Sodium Potassium Chloride Carbon Dioxide BUN 31 H Creatinine 0.7 L Glucose 137 H POC Glucose 131 H 155 H Lactic Acid Calcium Phosphorus Magnesium AST 73 H ALT 97 H Lactate Dehydrogenase Total Bilirubin Direct Bilirubin CK-MB (CK-2) C-Reactive Protein NT-Pro-B Natriuret Pep 3866 H Total Protein Albumin 2.8 L Arterial Blood Glucose Urine WBC (Auto) Urine Creatinine Digoxin 01/01/20 01/01/20 01/01/20 12:26 15:33 17:53 WBC 14.3 H RBC 3.35 L Hgb 9.1 L Hct 28.8 L MCHC RDW 17.0 H MCV MCH 27 L Lymph % (Auto) 7.0 L [place] % (Auto) 7.6 H [place] # Eos # Lymph # (Auto) 1.0 L [place] # (Auto) 1.1 H Eos # (Auto) Seg Neutrophils % 83.3 H Seg Neuts % (Manual) Baso # (Auto) Lymphocytes % (Manual) Monocytes % (Manual) Eosinophils % (Manual) Basophils % (Manual) Seg Neutrophils # 12.0 H Seg Neutrophils # Man Lymphocytes # (Manual) Monocytes # (Manual) Eosinophils # (Manual) Nucleated RBC % Basophils # (Manual) PT INR APTT Heparin Anti-Xa Level ABG pH POC ABG pO2 ABG pO2 ABG HCO3 ABG O2 Saturation ABG Base Excess POC ABG pCO2 ABG Hemoglobin ABG Oxyhemoglobin ABG Sodium ABG Chloride ABG Glucose Oxyhemoglobin Sodium Potassium Chloride Carbon Dioxide BUN Creatinine Glucose POC Glucose 128 H 128 H Lactic Acid Calcium Phosphorus Magnesium AST ALT Lactate Dehydrogenase Total Bilirubin Direct Bilirubin CK-MB (CK-2) C-Reactive Protein NT-Pro-B Natriuret Pep Total Protein Albumin Arterial Blood Glucose Urine WBC (Auto) Urine Creatinine Digoxin 01/01/20 01/02/20 01/02/20 23:04 05:39 07:00 WBC RBC Hgb Hct MCHC RDW MCV MCH Lymph % (Auto) [place] % (Auto) [place] # Eos # Lymph # (Auto) [place] # (Auto) Eos # (Auto) Seg Neutrophils % Seg Neuts % (Manual) Baso # (Auto) Lymphocytes % (Manual) Monocytes % (Manual) Eosinophils % (Manual) Basophils % (Manual) Seg Neutrophils # Seg Neutrophils # Man Lymphocytes # (Manual) Monocytes # (Manual) Eosinophils # (Manual) Nucleated RBC % Basophils # (Manual) PT INR APTT Heparin Anti-Xa Level 0.13 L ABG pH POC ABG pO2 ABG pO2 ABG HCO3 ABG O2 Saturation ABG Base Excess POC ABG pCO2 ABG Hemoglobin ABG Oxyhemoglobin ABG Sodium ABG Chloride ABG Glucose Oxyhemoglobin Sodium Potassium Chloride Carbon Dioxide BUN Creatinine Glucose POC Glucose 120 H 169 H Lactic Acid Calcium Phosphorus Magnesium AST ALT Lactate Dehydrogenase Total Bilirubin Direct Bilirubin CK-MB (CK-2) C-Reactive Protein NT-Pro-B Natriuret Pep Total Protein Albumin Arterial Blood Glucose Urine WBC (Auto) Urine Creatinine Digoxin 01/02/20 01/02/20 01/02/20 12:15 14:06 17:58 WBC RBC Hgb Hct MCHC RDW MCV MCH Lymph % (Auto) [place] % (Auto) [place] # Eos # Lymph # (Auto) [place] # (Auto) Eos # (Auto) Seg Neutrophils % Seg Neuts % (Manual) Baso # (Auto) Lymphocytes % (Manual) Monocytes % (Manual) Eosinophils % (Manual) Basophils % (Manual) Seg Neutrophils # Seg Neutrophils # Man Lymphocytes # (Manual) Monocytes # (Manual) Eosinophils # (Manual) Nucleated RBC % Basophils # (Manual) PT INR APTT Heparin Anti-Xa Level < 0.10 L ABG pH POC ABG pO2 ABG pO2 ABG HCO3 ABG O2 Saturation ABG Base Excess POC ABG pCO2 ABG Hemoglobin ABG Oxyhemoglobin ABG Sodium ABG Chloride ABG Glucose Oxyhemoglobin Sodium Potassium Chloride Carbon Dioxide BUN Creatinine Glucose POC Glucose 190 H 198 H Lactic Acid Calcium Phosphorus Magnesium AST ALT Lactate Dehydrogenase Total Bilirubin Direct Bilirubin CK-MB (CK-2) C-Reactive Protein NT-Pro-B Natriuret Pep Total Protein Albumin Arterial Blood Glucose Urine WBC (Auto) Urine Creatinine Digoxin 01/02/20 01/02/20 01/03/20 21:43 23:33 05:42 WBC RBC Hgb Hct MCHC RDW MCV MCH Lymph % (Auto) [place] % (Auto) [place] # Eos # Lymph # (Auto) [place] # (Auto) Eos # (Auto) Seg Neutrophils % Seg Neuts % (Manual) Baso # (Auto) Lymphocytes % (Manual) Monocytes % (Manual) Eosinophils % (Manual) Basophils % (Manual) Seg Neutrophils # Seg Neutrophils # Man Lymphocytes # (Manual) Monocytes # (Manual) Eosinophils # (Manual) Nucleated RBC % Basophils # (Manual) PT INR APTT Heparin Anti-Xa Level 0.10 L ABG pH POC ABG pO2 ABG pO2 ABG HCO3 ABG O2 Saturation ABG Base Excess POC ABG pCO2 ABG Hemoglobin ABG Oxyhemoglobin ABG Sodium ABG Chloride ABG Glucose Oxyhemoglobin Sodium Potassium Chloride Carbon Dioxide BUN Creatinine Glucose POC Glucose 180 H 163 H Lactic Acid Calcium Phosphorus Magnesium AST ALT Lactate Dehydrogenase Total Bilirubin Direct Bilirubin CK-MB (CK-2) C-Reactive Protein NT-Pro-B Natriuret Pep Total Protein Albumin Arterial Blood Glucose Urine WBC (Auto) Urine Creatinine Digoxin 01/03/20 01/03/20 01/03/20 06:50 07:25 07:45 WBC 12.1 H RBC 3.35 L Hgb 9.0 L Hct 28.9 L MCHC 31 L RDW 16.6 H MCV MCH 27 L Lymph % (Auto) 13.0 L [place] % (Auto) 8.6 H [place] # Eos # Lymph # (Auto) [place] # (Auto) 1.0 H Eos # (Auto) Seg Neutrophils % 75.9 H Seg Neuts % (Manual) Baso # (Auto) Lymphocytes % (Manual) Monocytes % (Manual) Eosinophils % (Manual) Basophils % (Manual) Seg Neutrophils # 9.2 H Seg Neutrophils # Man Lymphocytes # (Manual) Monocytes # (Manual) Eosinophils # (Manual) Nucleated RBC % Basophils # (Manual) PT INR APTT Heparin Anti-Xa Level 0.29 L ABG pH POC ABG pO2 ABG pO2 ABG HCO3 ABG O2 Saturation ABG Base Excess POC ABG pCO2 ABG Hemoglobin ABG Oxyhemoglobin ABG Sodium ABG Chloride ABG Glucose Oxyhemoglobin Sodium Potassium 3.3 L D Chloride Carbon Dioxide 35 H D BUN 23 H Creatinine 0.6 L Glucose 149 H POC Glucose Lactic Acid Calcium Phosphorus Magnesium AST ALT 88 H Lactate Dehydrogenase Total Bilirubin Direct Bilirubin CK-MB (CK-2) C-Reactive Protein NT-Pro-B Natriuret Pep Total Protein 6.2 L Albumin 2.9 L Arterial Blood Glucose Urine WBC (Auto) Urine Creatinine Digoxin 01/03/20 01/03/20 01/03/20 12:05 17:42 18:30 WBC RBC Hgb Hct MCHC RDW MCV MCH Lymph % (Auto) [place] % (Auto) [place] # Eos # Lymph # (Auto) [place] # (Auto) Eos # (Auto) Seg Neutrophils % Seg Neuts % (Manual) Baso # (Auto) Lymphocytes % (Manual) Monocytes % (Manual) Eosinophils % (Manual) Basophils % (Manual) Seg Neutrophils # Seg Neutrophils # Man Lymphocytes # (Manual) Monocytes # (Manual) Eosinophils # (Manual) Nucleated RBC % Basophils # (Manual) PT INR APTT Heparin Anti-Xa Level ABG pH POC ABG pO2 ABG pO2 70.7 L ABG HCO3 36.1 H ABG O2 Saturation 94.4 L ABG Base Excess 10.0 H POC ABG pCO2 ABG Hemoglobin 9.7 L ABG Oxyhemoglobin ABG Sodium ABG Chloride ABG Glucose Oxyhemoglobin 91.8 L Sodium Potassium Chloride Carbon Dioxide BUN Creatinine Glucose POC Glucose 128 H 132 H Lactic Acid Calcium Phosphorus Magnesium AST ALT Lactate Dehydrogenase Total Bilirubin Direct Bilirubin CK-MB (CK-2) C-Reactive Protein NT-Pro-B Natriuret Pep Total Protein Albumin Arterial Blood Glucose Urine WBC (Auto) Urine Creatinine Digoxin 01/04/20 01/04/20 01/04/20 00:10 04:26 05:23 WBC RBC Hgb Hct MCHC RDW MCV MCH Lymph % (Auto) [place] % (Auto) [place] # Eos # Lymph # (Auto) [place] # (Auto) Eos # (Auto) Seg Neutrophils % Seg Neuts % (Manual) Baso # (Auto) Lymphocytes % (Manual) Monocytes % (Manual) Eosinophils % (Manual) Basophils % (Manual) Seg Neutrophils # Seg Neutrophils # Man Lymphocytes # (Manual) Monocytes # (Manual) Eosinophils # (Manual) Nucleated RBC % Basophils # (Manual) PT INR APTT Heparin Anti-Xa Level 0.16 L ABG pH POC ABG pO2 ABG pO2 ABG HCO3 ABG O2 Saturation ABG Base Excess POC ABG pCO2 ABG Hemoglobin ABG Oxyhemoglobin ABG Sodium ABG Chloride ABG Glucose Oxyhemoglobin Sodium Potassium Chloride Carbon Dioxide BUN Creatinine Glucose POC Glucose 121 H 119 H Lactic Acid Calcium Phosphorus Magnesium AST ALT Lactate Dehydrogenase Total Bilirubin Direct Bilirubin CK-MB (CK-2) C-Reactive Protein NT-Pro-B Natriuret Pep Total Protein Albumin Arterial Blood Glucose Urine WBC (Auto) Urine Creatinine Digoxin 01/04/20 01/04/20 01/04/20 09:50 09:50 12:18 WBC 15.4 H RBC 3.30 L Hgb 8.7 L Hct 28.2 L MCHC 31 L RDW 17.0 H MCV MCH 26 L Lymph % (Auto) [place] % (Auto) 7.6 H [place] # Eos # Lymph # (Auto) [place] # (Auto) 1.2 H Eos # (Auto) Seg Neutrophils % 75.4 H Seg Neuts % (Manual) Baso # (Auto) Lymphocytes % (Manual) Monocytes % (Manual) Eosinophils % (Manual) Basophils % (Manual) Seg Neutrophils # 11.6 H Seg Neutrophils # Man Lymphocytes # (Manual) Monocytes # (Manual) Eosinophils # (Manual) Nucleated RBC % Basophils # (Manual) PT INR APTT Heparin Anti-Xa Level ABG pH POC ABG pO2 ABG pO2 ABG HCO3 ABG O2 Saturation ABG Base Excess POC ABG pCO2 ABG Hemoglobin ABG Oxyhemoglobin ABG Sodium ABG Chloride ABG Glucose Oxyhemoglobin Sodium 148 H Potassium 3.5 L Chloride Carbon Dioxide 32 H BUN Creatinine 0.6 L Glucose 114 H POC Glucose 111 H Lactic Acid Calcium Phosphorus Magnesium AST ALT 59 H Lactate Dehydrogenase Total Bilirubin Direct Bilirubin CK-MB (CK-2) C-Reactive Protein NT-Pro-B Natriuret Pep Total Protein Albumin 2.6 L Arterial Blood Glucose Urine WBC (Auto) Urine Creatinine Digoxin 01/05/20 01/05/20 01/05/20 04:05 04:05 05:19 WBC 11.7 H RBC 3.50 L Hgb 9.3 L Hct 29.9 L MCHC 31 L RDW 16.6 H MCV MCH 27 L Lymph % (Auto) 13.1 L [place] % (Auto) 9.7 H [place] # Eos # Lymph # (Auto) [place] # (Auto) 1.1 H Eos # (Auto) Seg Neutrophils % 74.0 H Seg Neuts % (Manual) Baso # (Auto) Lymphocytes % (Manual) Monocytes % (Manual) Eosinophils % (Manual) Basophils % (Manual) Seg Neutrophils # 8.6 H Seg Neutrophils # Man Lymphocytes # (Manual) Monocytes # (Manual) Eosinophils # (Manual) Nucleated RBC % Basophils # (Manual) PT INR APTT Heparin Anti-Xa Level ABG pH POC ABG pO2 ABG pO2 ABG HCO3 ABG O2 Saturation ABG Base Excess POC ABG pCO2 ABG Hemoglobin ABG Oxyhemoglobin ABG Sodium ABG Chloride ABG Glucose Oxyhemoglobin Sodium 151 H Potassium Chloride Carbon Dioxide 34 H BUN Creatinine 0.7 L Glucose POC Glucose 112 H Lactic Acid Calcium Phosphorus Magnesium AST ALT 59 H Lactate Dehydrogenase Total Bilirubin Direct Bilirubin CK-MB (CK-2) C-Reactive Protein NT-Pro-B Natriuret Pep Total Protein 5.8 L Albumin 2.6 L Arterial Blood Glucose Urine WBC (Auto) Urine Creatinine Digoxin 01/05/20 01/06/20 01/06/20 16:04 00:23 04:44 WBC RBC 3.36 L Hgb 8.9 L Hct 28.7 L MCHC 31 L RDW 16.9 H MCV MCH 26 L Lymph % (Auto) [place] % (Auto) 9.4 H [place] # Eos # Lymph # (Auto) [place] # (Auto) Eos # (Auto) Seg Neutrophils % Seg Neuts % (Manual) Baso # (Auto) Lymphocytes % (Manual) Monocytes % (Manual) Eosinophils % (Manual) Basophils % (Manual) Seg Neutrophils # Seg Neutrophils # Man Lymphocytes # (Manual) Monocytes # (Manual) Eosinophils # (Manual) Nucleated RBC % Basophils # (Manual) PT INR APTT Heparin Anti-Xa Level ABG pH POC ABG pO2 ABG pO2 ABG HCO3 ABG O2 Saturation ABG Base Excess POC ABG pCO2 ABG Hemoglobin ABG Oxyhemoglobin ABG Sodium ABG Chloride ABG Glucose Oxyhemoglobin Sodium 151 H Potassium 3.2 L Chloride Carbon Dioxide 34 H BUN Creatinine 0.6 L Glucose POC Glucose 107 H Lactic Acid Calcium Phosphorus Magnesium AST ALT Lactate Dehydrogenase Total Bilirubin Direct Bilirubin CK-MB (CK-2) C-Reactive Protein NT-Pro-B Natriuret Pep Total Protein Albumin Arterial Blood Glucose Urine WBC (Auto) Urine Creatinine Digoxin 01/06/20 01/06/20 01/06/20 04:44 05:33 12:04 WBC RBC Hgb Hct MCHC RDW MCV MCH Lymph % (Auto) [place] % (Auto) [place] # Eos # Lymph # (Auto) [place] # (Auto) Eos # (Auto) Seg Neutrophils % Seg Neuts % (Manual) Baso # (Auto) Lymphocytes % (Manual) Monocytes % (Manual) Eosinophils % (Manual) Basophils % (Manual) Seg Neutrophils # Seg Neutrophils # Man Lymphocytes # (Manual) Monocytes # (Manual) Eosinophils # (Manual) Nucleated RBC % Basophils # (Manual) PT INR APTT Heparin Anti-Xa Level ABG pH POC ABG pO2 ABG pO2 ABG HCO3 ABG O2 Saturation ABG Base Excess POC ABG pCO2 ABG Hemoglobin ABG Oxyhemoglobin ABG Sodium ABG Chloride ABG Glucose Oxyhemoglobin Sodium 151 H Potassium 3.4 L Chloride Carbon Dioxide 33 H BUN Creatinine 0.6 L Glucose 118 H POC Glucose 118 H 123 H Lactic Acid Calcium Phosphorus Magnesium AST ALT Lactate Dehydrogenase Total Bilirubin Direct Bilirubin CK-MB (CK-2) C-Reactive Protein NT-Pro-B Natriuret Pep Total Protein 6.2 L Albumin 2.6 L Arterial Blood Glucose Urine WBC (Auto) Urine Creatinine Digoxin 01/06/20 01/07/20 01/07/20 17:54 00:06 04:10 WBC RBC 3.42 L Hgb 8.9 L Hct 29.0 L MCHC 31 L RDW 17.1 H MCV MCH 26 L Lymph % (Auto) [place] % (Auto) 8.4 H [place] # Eos # Lymph # (Auto) [place] # (Auto) Eos # (Auto) Seg Neutrophils % Seg Neuts % (Manual) Baso # (Auto) Lymphocytes % (Manual) Monocytes % (Manual) Eosinophils % (Manual) Basophils % (Manual) Seg Neutrophils # Seg Neutrophils # Man Lymphocytes # (Manual) Monocytes # (Manual) Eosinophils # (Manual) Nucleated RBC % Basophils # (Manual) PT INR APTT Heparin Anti-Xa Level ABG pH POC ABG pO2 ABG pO2 ABG HCO3 ABG O2 Saturation ABG Base Excess POC ABG pCO2 ABG Hemoglobin ABG Oxyhemoglobin ABG Sodium ABG Chloride ABG Glucose Oxyhemoglobin Sodium Potassium Chloride Carbon Dioxide BUN Creatinine Glucose POC Glucose 112 H 126 H Lactic Acid Calcium Phosphorus Magnesium AST ALT Lactate Dehydrogenase Total Bilirubin Direct Bilirubin CK-MB (CK-2) C-Reactive Protein NT-Pro-B Natriuret Pep Total Protein Albumin Arterial Blood Glucose Urine WBC (Auto) Urine Creatinine Digoxin 01/07/20 01/07/20 01/07/20 04:10 05:59 12:27 WBC RBC Hgb Hct MCHC RDW MCV MCH Lymph % (Auto) [place] % (Auto) [place] # Eos # Lymph # (Auto) [place] # (Auto) Eos # (Auto) Seg Neutrophils % Seg Neuts % (Manual) Baso # (Auto) Lymphocytes % (Manual) Monocytes % (Manual) Eosinophils % (Manual) Basophils % (Manual) Seg Neutrophils # Seg Neutrophils # Man Lymphocytes # (Manual) Monocytes # (Manual) Eosinophils # (Manual) Nucleated RBC % Basophils # (Manual) PT INR APTT Heparin Anti-Xa Level ABG pH POC ABG pO2 ABG pO2 ABG HCO3 ABG O2 Saturation ABG Base Excess POC ABG pCO2 ABG Hemoglobin ABG Oxyhemoglobin ABG Sodium ABG Chloride ABG Glucose Oxyhemoglobin Sodium 153 H Potassium 3.5 L Chloride Carbon Dioxide 34 H BUN Creatinine 0.6 L Glucose 121 H POC Glucose 121 H 126 H Lactic Acid Calcium Phosphorus Magnesium AST ALT Lactate Dehydrogenase Total Bilirubin Direct Bilirubin CK-MB (CK-2) C-Reactive Protein NT-Pro-B Natriuret Pep Total Protein 5.9 L Albumin 2.4 L Arterial Blood Glucose Urine WBC (Auto) Urine Creatinine Digoxin 01/07/20 01/08/20 01/08/20 18:12 00:03 05:41 WBC RBC Hgb Hct MCHC RDW MCV MCH Lymph % (Auto) [place] % (Auto) [place] # Eos # Lymph # (Auto) [place] # (Auto) Eos # (Auto) Seg Neutrophils % Seg Neuts % (Manual) Baso # (Auto) Lymphocytes % (Manual) Monocytes % (Manual) Eosinophils % (Manual) Basophils % (Manual) Seg Neutrophils # Seg Neutrophils # Man Lymphocytes # (Manual) Monocytes # (Manual) Eosinophils # (Manual) Nucleated RBC % Basophils # (Manual) PT INR APTT Heparin Anti-Xa Level ABG pH POC ABG pO2 ABG pO2 ABG HCO3 ABG O2 Saturation ABG Base Excess POC ABG pCO2 ABG Hemoglobin ABG Oxyhemoglobin ABG Sodium ABG Chloride ABG Glucose Oxyhemoglobin Sodium Potassium Chloride Carbon Dioxide BUN Creatinine Glucose POC Glucose 124 H 130 H 138 H Lactic Acid Calcium Phosphorus Magnesium AST ALT Lactate Dehydrogenase Total Bilirubin Direct Bilirubin CK-MB (CK-2) C-Reactive Protein NT-Pro-B Natriuret Pep Total Protein Albumin Arterial Blood Glucose Urine WBC (Auto) Urine Creatinine Digoxin 01/08/20 01/08/20 01/08/20 09:28 11:42 18:21 WBC RBC Hgb Hct MCHC RDW MCV MCH Lymph % (Auto) [place] % (Auto) [place] # Eos # Lymph # (Auto) [place] # (Auto) Eos # (Auto) Seg Neutrophils % Seg Neuts % (Manual) Baso # (Auto) Lymphocytes % (Manual) Monocytes % (Manual) Eosinophils % (Manual) Basophils % (Manual) Seg Neutrophils # Seg Neutrophils # Man Lymphocytes # (Manual) Monocytes # (Manual) Eosinophils # (Manual) Nucleated RBC % Basophils # (Manual) PT INR APTT Heparin Anti-Xa Level ABG pH POC ABG pO2 ABG pO2 ABG HCO3 ABG O2 Saturation ABG Base Excess POC ABG pCO2 ABG Hemoglobin ABG Oxyhemoglobin ABG Sodium ABG Chloride ABG Glucose Oxyhemoglobin Sodium Potassium Chloride Carbon Dioxide BUN Creatinine Glucose POC Glucose 181 H 150 H 129 H Lactic Acid Calcium Phosphorus Magnesium AST ALT Lactate Dehydrogenase Total Bilirubin Direct Bilirubin CK-MB (CK-2) C-Reactive Protein NT-Pro-B Natriuret Pep Total Protein Albumin Arterial Blood Glucose Urine WBC (Auto) Urine Creatinine Digoxin 01/08/20 01/08/20 01/09/20 19:25 23:55 04:11 WBC RBC 3.43 L Hgb 8.9 L Hct 28.7 L MCHC 31 L RDW 17.6 H MCV MCH 26 L Lymph % (Auto) [place] % (Auto) 8.6 H [place] # Eos # Lymph # (Auto) [place] # (Auto) Eos # (Auto) Seg Neutrophils % Seg Neuts % (Manual) Baso # (Auto) Lymphocytes % (Manual) Monocytes % (Manual) Eosinophils % (Manual) Basophils % (Manual) Seg Neutrophils # Seg Neutrophils # Man Lymphocytes # (Manual) Monocytes # (Manual) Eosinophils # (Manual) Nucleated RBC % Basophils # (Manual) PT INR APTT Heparin Anti-Xa Level ABG pH POC ABG pO2 ABG pO2 ABG HCO3 ABG O2 Saturation ABG Base Excess POC ABG pCO2 ABG Hemoglobin ABG Oxyhemoglobin ABG Sodium ABG Chloride ABG Glucose Oxyhemoglobin Sodium Potassium Chloride Carbon Dioxide BUN Creatinine 0.7 L Glucose 117 H POC Glucose 132 H Lactic Acid Calcium Phosphorus Magnesium AST ALT Lactate Dehydrogenase Total Bilirubin Direct Bilirubin CK-MB (CK-2) C-Reactive Protein NT-Pro-B Natriuret Pep Total Protein Albumin Arterial Blood Glucose Urine WBC (Auto) Urine Creatinine Digoxin 01/09/20 01/09/20 01/09/20 04:11 05:38 22:58 WBC RBC Hgb Hct MCHC RDW MCV MCH Lymph % (Auto) [place] % (Auto) [place] # Eos # Lymph # (Auto) [place] # (Auto) Eos # (Auto) Seg Neutrophils % Seg Neuts % (Manual) Baso # (Auto) Lymphocytes % (Manual) Monocytes % (Manual) Eosinophils % (Manual) Basophils % (Manual) Seg Neutrophils # Seg Neutrophils # Man Lymphocytes # (Manual) Monocytes # (Manual) Eosinophils # (Manual) Nucleated RBC % Basophils # (Manual) PT INR APTT Heparin Anti-Xa Level ABG pH POC ABG pO2 ABG pO2 ABG HCO3 ABG O2 Saturation ABG Base Excess POC ABG pCO2 ABG Hemoglobin ABG Oxyhemoglobin ABG Sodium ABG Chloride ABG Glucose Oxyhemoglobin Sodium 147 H Potassium 3.3 L D Chloride Carbon Dioxide 32 H BUN Creatinine 0.6 L Glucose 106 H POC Glucose 107 H 113 H Lactic Acid Calcium Phosphorus Magnesium AST ALT Lactate Dehydrogenase Total Bilirubin Direct Bilirubin CK-MB (CK-2) C-Reactive Protein NT-Pro-B Natriuret Pep Total Protein Albumin Arterial Blood Glucose Urine WBC (Auto) Urine Creatinine Digoxin 01/10/20 01/10/20 01/10/20 04:05 11:36 17:54 WBC RBC Hgb Hct MCHC RDW MCV MCH Lymph % (Auto) [place] % (Auto) [place] # Eos # Lymph # (Auto) [place] # (Auto) Eos # (Auto) Seg Neutrophils % Seg Neuts % (Manual) Baso # (Auto) Lymphocytes % (Manual) Monocytes % (Manual) Eosinophils % (Manual) Basophils % (Manual) Seg Neutrophils # Seg Neutrophils # Man Lymphocytes # (Manual) Monocytes # (Manual) Eosinophils # (Manual) Nucleated RBC % Basophils # (Manual) PT INR APTT Heparin Anti-Xa Level ABG pH POC ABG pO2 ABG pO2 ABG HCO3 ABG O2 Saturation ABG Base Excess POC ABG pCO2 ABG Hemoglobin ABG Oxyhemoglobin ABG Sodium ABG Chloride ABG Glucose Oxyhemoglobin Sodium Potassium Chloride Carbon Dioxide BUN Creatinine 0.7 L Glucose 110 H POC Glucose 129 H 117 H Lactic Acid Calcium Phosphorus Magnesium AST ALT Lactate Dehydrogenase Total Bilirubin Direct Bilirubin CK-MB (CK-2) C-Reactive Protein NT-Pro-B Natriuret Pep Total Protein Albumin Arterial Blood Glucose Urine WBC (Auto) Urine Creatinine Digoxin 01/10/20 01/11/20 01/11/20 23:52 03:19 12:09 WBC RBC Hgb Hct MCHC RDW MCV MCH Lymph % (Auto) [place] % (Auto) [place] # Eos # Lymph # (Auto) [place] # (Auto) Eos # (Auto) Seg Neutrophils % Seg Neuts % (Manual) Baso # (Auto) Lymphocytes % (Manual) Monocytes % (Manual) Eosinophils % (Manual) Basophils % (Manual) Seg Neutrophils # Seg Neutrophils # Man Lymphocytes # (Manual) Monocytes # (Manual) Eosinophils # (Manual) Nucleated RBC % Basophils # (Manual) PT INR APTT Heparin Anti-Xa Level ABG pH POC ABG pO2 ABG pO2 ABG HCO3 ABG O2 Saturation ABG Base Excess POC ABG pCO2 ABG Hemoglobin ABG Oxyhemoglobin ABG Sodium ABG Chloride ABG Glucose Oxyhemoglobin Sodium Potassium Chloride Carbon Dioxide BUN Creatinine Glucose POC Glucose 117 H 136 H 115 H Lactic Acid Calcium Phosphorus Magnesium AST ALT Lactate Dehydrogenase Total Bilirubin Direct Bilirubin CK-MB (CK-2) C-Reactive Protein NT-Pro-B Natriuret Pep Total Protein Albumin Arterial Blood Glucose Urine WBC (Auto) Urine Creatinine Digoxin 01/11/20 01/11/20 01/12/20 18:27 23:28 00:23 WBC RBC Hgb 9.8 L Hct 31.6 L MCHC 31 L RDW 17.8 H MCV 83 L MCH 26 L Lymph % (Auto) [place] % (Auto) 8.0 H [place] # Eos # Lymph # (Auto) [place] # (Auto) Eos # (Auto) Seg Neutrophils % Seg Neuts % (Manual) Baso # (Auto) Lymphocytes % (Manual) Monocytes % (Manual) Eosinophils % (Manual) Basophils % (Manual) Seg Neutrophils # Seg Neutrophils # Man Lymphocytes # (Manual) Monocytes # (Manual) Eosinophils # (Manual) Nucleated RBC % Basophils # (Manual) PT INR APTT Heparin Anti-Xa Level ABG pH POC ABG pO2 ABG pO2 ABG HCO3 ABG O2 Saturation ABG Base Excess POC ABG pCO2 ABG Hemoglobin ABG Oxyhemoglobin ABG Sodium ABG Chloride ABG Glucose Oxyhemoglobin Sodium Potassium Chloride Carbon Dioxide BUN Creatinine Glucose POC Glucose 118 H 122 H Lactic Acid Calcium Phosphorus Magnesium AST ALT Lactate Dehydrogenase Total Bilirubin Direct Bilirubin CK-MB (CK-2) C-Reactive Protein NT-Pro-B Natriuret Pep Total Protein Albumin Arterial Blood Glucose Urine WBC (Auto) Urine Creatinine Digoxin 01/12/20 01/12/20 01/12/20 00:23 04:18 04:18 WBC RBC Hgb 9.6 L Hct 30.9 L MCHC 31 L RDW 17.3 H MCV 81 L MCH 25 L Lymph % (Auto) [place] % (Auto) [place] # Eos # Lymph # (Auto) [place] # (Auto) Eos # (Auto) Seg Neutrophils % Seg Neuts % (Manual) Baso # (Auto) Lymphocytes % (Manual) Monocytes % (Manual) Eosinophils % (Manual) Basophils % (Manual) Seg Neutrophils # Seg Neutrophils # Man Lymphocytes # (Manual) Monocytes # (Manual) Eosinophils # (Manual) Nucleated RBC % Basophils # (Manual) PT INR APTT Heparin Anti-Xa Level ABG pH POC ABG pO2 ABG pO2 ABG HCO3 ABG O2 Saturation ABG Base Excess POC ABG pCO2 ABG Hemoglobin ABG Oxyhemoglobin ABG Sodium ABG Chloride ABG Glucose Oxyhemoglobin Sodium Potassium Chloride Carbon Dioxide BUN Creatinine 0.7 L 0.7 L Glucose 111 H 108 H POC Glucose Lactic Acid Calcium Phosphorus Magnesium AST ALT Lactate Dehydrogenase Total Bilirubin Direct Bilirubin CK-MB (CK-2) C-Reactive Protein NT-Pro-B Natriuret Pep Total Protein Albumin 2.6 L Arterial Blood Glucose Urine WBC (Auto) Urine Creatinine Digoxin 01/12/20 01/12/20 01/12/20 06:03 12:27 13:58 WBC RBC Hgb Hct MCHC RDW MCV MCH Lymph % (Auto) [place] % (Auto) [place] # Eos # Lymph # (Auto) [place] # (Auto) Eos # (Auto) Seg Neutrophils % Seg Neuts % (Manual) Baso # (Auto) Lymphocytes % (Manual) Monocytes % (Manual) Eosinophils % (Manual) Basophils % (Manual) Seg Neutrophils # Seg Neutrophils # Man Lymphocytes # (Manual) Monocytes # (Manual) Eosinophils # (Manual) Nucleated RBC % Basophils # (Manual) PT INR APTT Heparin Anti-Xa Level ABG pH 7.453 H POC ABG pO2 76.6 L ABG pO2 ABG HCO3 ABG O2 Saturation ABG Base Excess POC ABG pCO2 ABG Hemoglobin 10.3 L ABG Oxyhemoglobin ABG Sodium ABG Chloride ABG Glucose 99 H Oxyhemoglobin Sodium Potassium Chloride Carbon Dioxide BUN Creatinine Glucose POC Glucose 128 H 121 H Lactic Acid Calcium Phosphorus Magnesium AST ALT Lactate Dehydrogenase Total Bilirubin Direct Bilirubin CK-MB (CK-2) C-Reactive Protein NT-Pro-B Natriuret Pep Total Protein Albumin Arterial Blood Glucose 99 H Urine WBC (Auto) Urine Creatinine Digoxin 01/12/20 01/13/20 01/13/20 18:24 12:01 17:46 WBC RBC Hgb Hct MCHC RDW MCV MCH Lymph % (Auto) [place] % (Auto) [place] # Eos # Lymph # (Auto) [place] # (Auto) Eos # (Auto) Seg Neutrophils % Seg Neuts % (Manual) Baso # (Auto) Lymphocytes % (Manual) Monocytes % (Manual) Eosinophils % (Manual) Basophils % (Manual) Seg Neutrophils # Seg Neutrophils # Man Lymphocytes # (Manual) Monocytes # (Manual) Eosinophils # (Manual) Nucleated RBC % Basophils # (Manual) PT INR APTT Heparin Anti-Xa Level ABG pH POC ABG pO2 ABG pO2 ABG HCO3 ABG O2 Saturation ABG Base Excess POC ABG pCO2 ABG Hemoglobin ABG Oxyhemoglobin ABG Sodium ABG Chloride ABG Glucose Oxyhemoglobin Sodium Potassium Chloride Carbon Dioxide BUN Creatinine Glucose POC Glucose 119 H 107 H 124 H Lactic Acid Calcium Phosphorus Magnesium AST ALT Lactate Dehydrogenase Total Bilirubin Direct Bilirubin CK-MB (CK-2) C-Reactive Protein NT-Pro-B Natriuret Pep Total Protein Albumin Arterial Blood Glucose Urine WBC (Auto) Urine Creatinine Digoxin 01/13/20 01/14/20 01/14/20 20:40 00:10 05:33 WBC RBC Hgb Hct MCHC RDW MCV MCH Lymph % (Auto) [place] % (Auto) [place] # Eos # Lymph # (Auto) [place] # (Auto) Eos # (Auto) Seg Neutrophils % Seg Neuts % (Manual) Baso # (Auto) Lymphocytes % (Manual) Monocytes % (Manual) Eosinophils % (Manual) Basophils % (Manual) Seg Neutrophils # Seg Neutrophils # Man Lymphocytes # (Manual) Monocytes # (Manual) Eosinophils # (Manual) Nucleated RBC % Basophils # (Manual) PT INR APTT Heparin Anti-Xa Level ABG pH POC ABG pO2 ABG pO2 65.3 L ABG HCO3 31.8 H ABG O2 Saturation 93.5 L ABG Base Excess 6.7 H POC ABG pCO2 ABG Hemoglobin 13.3 L ABG Oxyhemoglobin ABG Sodium ABG Chloride ABG Glucose Oxyhemoglobin 90.9 L Sodium Potassium Chloride Carbon Dioxide BUN Creatinine Glucose POC Glucose 111 H 111 H Lactic Acid Calcium Phosphorus Magnesium AST ALT Lactate Dehydrogenase Total Bilirubin Direct Bilirubin CK-MB (CK-2) C-Reactive Protein NT-Pro-B Natriuret Pep Total Protein Albumin Arterial Blood Glucose Urine WBC (Auto) Urine Creatinine Digoxin 01/14/20 01/14/20 01/14/20 12:10 16:14 16:14 WBC RBC Hgb 10.6 L Hct 34.2 L MCHC 31 L RDW 18.3 H MCV 83 L MCH 26 L Lymph % (Auto) [place] % (Auto) 7.4 H [place] # Eos # Lymph # (Auto) [place] # (Auto) Eos # (Auto) Seg Neutrophils % 71.9 H Seg Neuts % (Manual) Baso # (Auto) Lymphocytes % (Manual) Monocytes % (Manual) Eosinophils % (Manual) Basophils % (Manual) Seg Neutrophils # Seg Neutrophils # Man Lymphocytes # (Manual) Monocytes # (Manual) Eosinophils # (Manual) Nucleated RBC % Basophils # (Manual) PT INR APTT Heparin Anti-Xa Level ABG pH POC ABG pO2 ABG pO2 ABG HCO3 ABG O2 Saturation ABG Base Excess POC ABG pCO2 ABG Hemoglobin ABG Oxyhemoglobin ABG Sodium ABG Chloride ABG Glucose Oxyhemoglobin Sodium Potassium Chloride Carbon Dioxide 31 H BUN Creatinine 0.6 L Glucose 131 H POC Glucose 139 H Lactic Acid Calcium Phosphorus Magnesium AST ALT Lactate Dehydrogenase Total Bilirubin Direct Bilirubin CK-MB (CK-2) C-Reactive Protein NT-Pro-B Natriuret Pep Total Protein Albumin Arterial Blood Glucose Urine WBC (Auto) Urine Creatinine Digoxin 01/14/20 01/15/20 01/15/20 18:05 00:52 05:35 WBC RBC Hgb Hct MCHC RDW MCV MCH Lymph % (Auto) [place] % (Auto) [place] # Eos # Lymph # (Auto) [place] # (Auto) Eos # (Auto) Seg Neutrophils % Seg Neuts % (Manual) Baso # (Auto) Lymphocytes % (Manual) Monocytes % (Manual) Eosinophils % (Manual) Basophils % (Manual) Seg Neutrophils # Seg Neutrophils # Man Lymphocytes # (Manual) Monocytes # (Manual) Eosinophils # (Manual) Nucleated RBC % Basophils # (Manual) PT INR APTT Heparin Anti-Xa Level ABG pH POC ABG pO2 ABG pO2 ABG HCO3 ABG O2 Saturation ABG Base Excess POC ABG pCO2 ABG Hemoglobin ABG Oxyhemoglobin ABG Sodium ABG Chloride ABG Glucose Oxyhemoglobin Sodium Potassium Chloride Carbon Dioxide BUN Creatinine Glucose POC Glucose 147 H 140 H 159 H Lactic Acid Calcium Phosphorus Magnesium AST ALT Lactate Dehydrogenase Total Bilirubin Direct Bilirubin CK-MB (CK-2) C-Reactive Protein NT-Pro-B Natriuret Pep Total Protein Albumin Arterial Blood Glucose Urine WBC (Auto) Urine Creatinine Digoxin 01/15/20 01/15/20 01/16/20 12:52 17:43 00:32 WBC RBC Hgb Hct MCHC RDW MCV MCH Lymph % (Auto) [place] % (Auto) [place] # Eos # Lymph # (Auto) [place] # (Auto) Eos # (Auto) Seg Neutrophils % Seg Neuts % (Manual) Baso # (Auto) Lymphocytes % (Manual) Monocytes % (Manual) Eosinophils % (Manual) Basophils % (Manual) Seg Neutrophils # Seg Neutrophils # Man Lymphocytes # (Manual) Monocytes # (Manual) Eosinophils # (Manual) Nucleated RBC % Basophils # (Manual) PT INR APTT Heparin Anti-Xa Level ABG pH POC ABG pO2 ABG pO2 ABG HCO3 ABG O2 Saturation ABG Base Excess POC ABG pCO2 ABG Hemoglobin ABG Oxyhemoglobin ABG Sodium ABG Chloride ABG Glucose Oxyhemoglobin Sodium Potassium Chloride Carbon Dioxide BUN Creatinine Glucose POC Glucose 164 H 167 H 153 H Lactic Acid Calcium Phosphorus Magnesium AST ALT Lactate Dehydrogenase Total Bilirubin Direct Bilirubin CK-MB (CK-2) C-Reactive Protein NT-Pro-B Natriuret Pep Total Protein Albumin Arterial Blood Glucose Urine WBC (Auto) Urine Creatinine Digoxin 01/16/20 01/16/20 01/17/20 05:46 11:48 06:38 WBC RBC Hgb Hct MCHC RDW MCV MCH Lymph % (Auto) [place] % (Auto) [place] # Eos # Lymph # (Auto) [place] # (Auto) Eos # (Auto) Seg Neutrophils % Seg Neuts % (Manual) Baso # (Auto) Lymphocytes % (Manual) Monocytes % (Manual) Eosinophils % (Manual) Basophils % (Manual) Seg Neutrophils # Seg Neutrophils # Man Lymphocytes # (Manual) Monocytes # (Manual) Eosinophils # (Manual) Nucleated RBC % Basophils # (Manual) PT INR APTT Heparin Anti-Xa Level ABG pH POC ABG pO2 ABG pO2 ABG HCO3 ABG O2 Saturation ABG Base Excess POC ABG pCO2 ABG Hemoglobin ABG Oxyhemoglobin ABG Sodium ABG Chloride ABG Glucose Oxyhemoglobin Sodium Potassium Chloride Carbon Dioxide BUN Creatinine Glucose POC Glucose 163 H 155 H 116 H Lactic Acid Calcium Phosphorus Magnesium AST ALT Lactate Dehydrogenase Total Bilirubin Direct Bilirubin CK-MB (CK-2) C-Reactive Protein NT-Pro-B Natriuret Pep Total Protein Albumin Arterial Blood Glucose Urine WBC (Auto) Urine Creatinine Digoxin 01/17/20 01/17/20 01/18/20 11:36 17:43 00:12 WBC RBC Hgb Hct MCHC RDW MCV MCH Lymph % (Auto) [place] % (Auto) [place] # Eos # Lymph # (Auto) [place] # (Auto) Eos # (Auto) Seg Neutrophils % Seg Neuts % (Manual) Baso # (Auto) Lymphocytes % (Manual) Monocytes % (Manual) Eosinophils % (Manual) Basophils % (Manual) Seg Neutrophils # Seg Neutrophils # Man Lymphocytes # (Manual) Monocytes # (Manual) Eosinophils # (Manual) Nucleated RBC % Basophils # (Manual) PT INR APTT Heparin Anti-Xa Level ABG pH POC ABG pO2 ABG pO2 ABG HCO3 ABG O2 Saturation ABG Base Excess POC ABG pCO2 ABG Hemoglobin ABG Oxyhemoglobin ABG Sodium ABG Chloride ABG Glucose Oxyhemoglobin Sodium Potassium Chloride Carbon Dioxide BUN Creatinine Glucose POC Glucose 110 H 134 H 108 H Lactic Acid Calcium Phosphorus Magnesium AST ALT Lactate Dehydrogenase Total Bilirubin Direct Bilirubin CK-MB (CK-2) C-Reactive Protein NT-Pro-B Natriuret Pep Total Protein Albumin Arterial Blood Glucose Urine WBC (Auto) Urine Creatinine Digoxin 01/18/20 01/18/20 01/18/20 05:37 06:46 06:46 WBC RBC Hgb 10.1 L Hct 32.2 L MCHC 31 L RDW 18.1 H MCV 81 L MCH 25 L Lymph % (Auto) [place] % (Auto) [place] # Eos # Lymph # (Auto) [place] # (Auto) Eos # (Auto) Seg Neutrophils % 71.9 H Seg Neuts % (Manual) Baso # (Auto) Lymphocytes % (Manual) Monocytes % (Manual) Eosinophils % (Manual) Basophils % (Manual) Seg Neutrophils # Seg Neutrophils # Man Lymphocytes # (Manual) Monocytes # (Manual) Eosinophils # (Manual) Nucleated RBC % Basophils # (Manual) PT INR APTT Heparin Anti-Xa Level ABG pH POC ABG pO2 ABG pO2 ABG HCO3 ABG O2 Saturation ABG Base Excess POC ABG pCO2 ABG Hemoglobin ABG Oxyhemoglobin ABG Sodium ABG Chloride ABG Glucose Oxyhemoglobin Sodium Potassium Chloride Carbon Dioxide BUN Creatinine 0.7 L Glucose 155 H POC Glucose 168 H Lactic Acid Calcium Phosphorus Magnesium AST ALT Lactate Dehydrogenase Total Bilirubin Direct Bilirubin CK-MB (CK-2) C-Reactive Protein NT-Pro-B Natriuret Pep Total Protein Albumin Arterial Blood Glucose Urine WBC (Auto) Urine Creatinine Digoxin 01/18/20 01/18/20 01/18/20 12:05 17:14 23:28 WBC RBC Hgb Hct MCHC RDW MCV MCH Lymph % (Auto) [place] % (Auto) [place] # Eos # Lymph # (Auto) [place] # (Auto) Eos # (Auto) Seg Neutrophils % Seg Neuts % (Manual) Baso # (Auto) Lymphocytes % (Manual) Monocytes % (Manual) Eosinophils % (Manual) Basophils % (Manual) Seg Neutrophils # Seg Neutrophils # Man Lymphocytes # (Manual) Monocytes # (Manual) Eosinophils # (Manual) Nucleated RBC % Basophils # (Manual) PT INR APTT Heparin Anti-Xa Level ABG pH POC ABG pO2 ABG pO2 ABG HCO3 ABG O2 Saturation ABG Base Excess POC ABG pCO2 ABG Hemoglobin ABG Oxyhemoglobin ABG Sodium ABG Chloride ABG Glucose Oxyhemoglobin Sodium Potassium Chloride Carbon Dioxide BUN Creatinine Glucose POC Glucose 128 H 126 H 128 H Lactic Acid Calcium Phosphorus Magnesium AST ALT Lactate Dehydrogenase Total Bilirubin Direct Bilirubin CK-MB (CK-2) C-Reactive Protein NT-Pro-B Natriuret Pep Total Protein Albumin Arterial Blood Glucose Urine WBC (Auto) Urine Creatinine Digoxin 01/19/20 01/19/20 01/19/20 05:39 12:33 17:36 WBC RBC Hgb Hct MCHC RDW MCV MCH Lymph % (Auto) [place] % (Auto) [place] # Eos # Lymph # (Auto) [place] # (Auto) Eos # (Auto) Seg Neutrophils % Seg Neuts % (Manual) Baso # (Auto) Lymphocytes % (Manual) Monocytes % (Manual) Eosinophils % (Manual) Basophils % (Manual) Seg Neutrophils # Seg Neutrophils # Man Lymphocytes # (Manual) Monocytes # (Manual) Eosinophils # (Manual) Nucleated RBC % Basophils # (Manual) PT INR APTT Heparin Anti-Xa Level ABG pH POC ABG pO2 ABG pO2 ABG HCO3 ABG O2 Saturation ABG Base Excess POC ABG pCO2 ABG Hemoglobin ABG Oxyhemoglobin ABG Sodium ABG Chloride ABG Glucose Oxyhemoglobin Sodium Potassium Chloride Carbon Dioxide BUN Creatinine Glucose POC Glucose 164 H 171 H 152 H Lactic Acid Calcium Phosphorus Magnesium AST ALT Lactate Dehydrogenase Total Bilirubin Direct Bilirubin CK-MB (CK-2) C-Reactive Protein NT-Pro-B Natriuret Pep Total Protein Albumin Arterial Blood Glucose Urine WBC (Auto) Urine Creatinine Digoxin 01/20/20 01/20/20 01/20/20 00:12 05:20 05:35 WBC RBC Hgb 9.2 L Hct 29.4 L MCHC 31 L RDW 17.9 H MCV 81 L MCH 25 L Lymph % (Auto) [place] % (Auto) [place] # Eos # Lymph # (Auto) [place] # (Auto) Eos # (Auto) Seg Neutrophils % Seg Neuts % (Manual) Baso # (Auto) Lymphocytes % (Manual) Monocytes % (Manual) Eosinophils % (Manual) Basophils % (Manual) Seg Neutrophils # Seg Neutrophils # Man Lymphocytes # (Manual) Monocytes # (Manual) Eosinophils # (Manual) Nucleated RBC % Basophils # (Manual) PT INR APTT Heparin Anti-Xa Level ABG pH POC ABG pO2 ABG pO2 ABG HCO3 ABG O2 Saturation ABG Base Excess POC ABG pCO2 ABG Hemoglobin ABG Oxyhemoglobin ABG Sodium ABG Chloride ABG Glucose Oxyhemoglobin Sodium Potassium Chloride Carbon Dioxide BUN Creatinine Glucose POC Glucose 120 H 136 H Lactic Acid Calcium Phosphorus Magnesium AST ALT Lactate Dehydrogenase Total Bilirubin Direct Bilirubin CK-MB (CK-2) C-Reactive Protein NT-Pro-B Natriuret Pep Total Protein Albumin Arterial Blood Glucose Urine WBC (Auto) Urine Creatinine Digoxin 01/20/20 01/20/20 01/20/20 05:40 11:58 14:55 WBC RBC Hgb 9.0 L Hct 28.3 L MCHC RDW MCV MCH Lymph % (Auto) [place] % (Auto) [place] # Eos # Lymph # (Auto) [place] # (Auto) Eos # (Auto) Seg Neutrophils % Seg Neuts % (Manual) Baso # (Auto) Lymphocytes % (Manual) Monocytes % (Manual) Eosinophils % (Manual) Basophils % (Manual) Seg Neutrophils # Seg Neutrophils # Man Lymphocytes # (Manual) Monocytes # (Manual) Eosinophils # (Manual) Nucleated RBC % Basophils # (Manual) PT INR APTT Heparin Anti-Xa Level ABG pH POC ABG pO2 ABG pO2 ABG HCO3 ABG O2 Saturation ABG Base Excess POC ABG pCO2 ABG Hemoglobin ABG Oxyhemoglobin ABG Sodium ABG Chloride ABG Glucose Oxyhemoglobin Sodium Potassium Chloride Carbon Dioxide 32 H BUN 22 H Creatinine 0.7 L Glucose 128 H POC Glucose 152 H Lactic Acid Calcium Phosphorus Magnesium AST ALT Lactate Dehydrogenase Total Bilirubin Direct Bilirubin CK-MB (CK-2) C-Reactive Protein NT-Pro-B Natriuret Pep Total Protein Albumin Arterial Blood Glucose Urine WBC (Auto) Urine Creatinine Digoxin 01/20/20 01/20/20 01/20/20 14:55 18:14 21:35 WBC RBC Hgb Hct MCHC RDW MCV MCH Lymph % (Auto) [place] % (Auto) [place] # Eos # Lymph # (Auto) [place] # (Auto) Eos # (Auto) Seg Neutrophils % Seg Neuts % (Manual) Baso # (Auto) Lymphocytes % (Manual) Monocytes % (Manual) Eosinophils % (Manual) Basophils % (Manual) Seg Neutrophils # Seg Neutrophils # Man Lymphocytes # (Manual) Monocytes # (Manual) Eosinophils # (Manual) Nucleated RBC % Basophils # (Manual) PT 20.4 H INR 1.72 H APTT 40.6 H Heparin Anti-Xa Level > 2.00 H ABG pH POC ABG pO2 ABG pO2 ABG HCO3 ABG O2 Saturation ABG Base Excess POC ABG pCO2 ABG Hemoglobin ABG Oxyhemoglobin ABG Sodium ABG Chloride ABG Glucose Oxyhemoglobin Sodium Potassium Chloride Carbon Dioxide BUN Creatinine Glucose POC Glucose 150 H Lactic Acid Calcium Phosphorus Magnesium AST ALT Lactate Dehydrogenase Total Bilirubin Direct Bilirubin CK-MB (CK-2) C-Reactive Protein NT-Pro-B Natriuret Pep Total Protein Albumin Arterial Blood Glucose Urine WBC (Auto) Urine Creatinine Digoxin 01/21/20 01/21/20 01/21/20 00:30 05:47 05:59 WBC RBC Hgb Hct MCHC RDW MCV MCH Lymph % (Auto) [place] % (Auto) [place] # Eos # Lymph # (Auto) [place] # (Auto) Eos # (Auto) Seg Neutrophils % Seg Neuts % (Manual) Baso # (Auto) Lymphocytes % (Manual) Monocytes % (Manual) Eosinophils % (Manual) Basophils % (Manual) Seg Neutrophils # Seg Neutrophils # Man Lymphocytes # (Manual) Monocytes # (Manual) Eosinophils # (Manual) Nucleated RBC % Basophils # (Manual) PT INR APTT Heparin Anti-Xa Level 1.93 H ABG pH POC ABG pO2 ABG pO2 ABG HCO3 ABG O2 Saturation ABG Base Excess POC ABG pCO2 ABG Hemoglobin ABG Oxyhemoglobin ABG Sodium ABG Chloride ABG Glucose Oxyhemoglobin Sodium Potassium Chloride Carbon Dioxide BUN Creatinine Glucose POC Glucose 126 H 148 H Lactic Acid Calcium Phosphorus Magnesium AST ALT Lactate Dehydrogenase Total Bilirubin Direct Bilirubin CK-MB (CK-2) C-Reactive Protein NT-Pro-B Natriuret Pep Total Protein Albumin Arterial Blood Glucose Urine WBC (Auto) Urine Creatinine Digoxin 01/21/20 01/21/20 01/21/20 12:32 18:20 23:54 WBC RBC Hgb Hct MCHC RDW MCV MCH Lymph % (Auto) [place] % (Auto) [place] # Eos # Lymph # (Auto) [place] # (Auto) Eos # (Auto) Seg Neutrophils % Seg Neuts % (Manual) Baso # (Auto) Lymphocytes % (Manual) Monocytes % (Manual) Eosinophils % (Manual) Basophils % (Manual) Seg Neutrophils # Seg Neutrophils # Man Lymphocytes # (Manual) Monocytes # (Manual) Eosinophils # (Manual) Nucleated RBC % Basophils # (Manual) PT INR APTT Heparin Anti-Xa Level 1.28 H ABG pH POC ABG pO2 ABG pO2 ABG HCO3 ABG O2 Saturation ABG Base Excess POC ABG pCO2 ABG Hemoglobin ABG Oxyhemoglobin ABG Sodium ABG Chloride ABG Glucose Oxyhemoglobin Sodium Potassium Chloride Carbon Dioxide BUN Creatinine Glucose POC Glucose 112 H 146 H Lactic Acid Calcium Phosphorus Magnesium AST ALT Lactate Dehydrogenase Total Bilirubin Direct Bilirubin CK-MB (CK-2) C-Reactive Protein NT-Pro-B Natriuret Pep Total Protein Albumin Arterial Blood Glucose Urine WBC (Auto) Urine Creatinine Digoxin 01/22/20 01/22/20 01/22/20 04:45 04:45 05:48 WBC RBC Hgb 9.3 L Hct 29.0 L MCHC RDW MCV MCH Lymph % (Auto) [place] % (Auto) [place] # Eos # Lymph # (Auto) [place] # (Auto) Eos # (Auto) Seg Neutrophils % Seg Neuts % (Manual) Baso # (Auto) Lymphocytes % (Manual) Monocytes % (Manual) Eosinophils % (Manual) Basophils % (Manual) Seg Neutrophils # Seg Neutrophils # Man Lymphocytes # (Manual) Monocytes # (Manual) Eosinophils # (Manual) Nucleated RBC % Basophils # (Manual) PT INR APTT Heparin Anti-Xa Level 1.34 H ABG pH POC ABG pO2 ABG pO2 ABG HCO3 ABG O2 Saturation ABG Base Excess POC ABG pCO2 ABG Hemoglobin ABG Oxyhemoglobin ABG Sodium ABG Chloride ABG Glucose Oxyhemoglobin Sodium Potassium Chloride Carbon Dioxide BUN Creatinine Glucose POC Glucose 142 H Lactic Acid Calcium Phosphorus Magnesium AST ALT Lactate Dehydrogenase Total Bilirubin Direct Bilirubin CK-MB (CK-2) C-Reactive Protein NT-Pro-B Natriuret Pep Total Protein Albumin Arterial Blood Glucose Urine WBC (Auto) Urine Creatinine Digoxin 01/22/20 01/22/20 01/22/20 08:09 08:22 09:58 WBC RBC Hgb Hct MCHC RDW MCV MCH Lymph % (Auto) [place] % (Auto) [place] # Eos # Lymph # (Auto) [place] # (Auto) Eos # (Auto) Seg Neutrophils % Seg Neuts % (Manual) Baso # (Auto) Lymphocytes % (Manual) Monocytes % (Manual) Eosinophils % (Manual) Basophils % (Manual) Seg Neutrophils # Seg Neutrophils # Man Lymphocytes # (Manual) Monocytes # (Manual) Eosinophils # (Manual) Nucleated RBC % Basophils # (Manual) PT 16.9 H INR 1.34 H APTT Heparin Anti-Xa Level ABG pH POC ABG pO2 ABG pO2 ABG HCO3 ABG O2 Saturation ABG Base Excess POC ABG pCO2 ABG Hemoglobin ABG Oxyhemoglobin ABG Sodium ABG Chloride ABG Glucose Oxyhemoglobin Sodium Potassium Chloride 97.8 L Carbon Dioxide BUN 29 H Creatinine Glucose 128 H POC Glucose 131 H Lactic Acid Calcium Phosphorus Magnesium AST ALT Lactate Dehydrogenase Total Bilirubin Direct Bilirubin CK-MB (CK-2) C-Reactive Protein NT-Pro-B Natriuret Pep Total Protein Albumin Arterial Blood Glucose Urine WBC (Auto) Urine Creatinine Digoxin 01/22/20 01/22/20 01/22/20 12:44 16:13 18:18 WBC RBC Hgb Hct MCHC RDW MCV MCH Lymph % (Auto) [place] % (Auto) [place] # Eos # Lymph # (Auto) [place] # (Auto) Eos # (Auto) Seg Neutrophils % Seg Neuts % (Manual) Baso # (Auto) Lymphocytes % (Manual) Monocytes % (Manual) Eosinophils % (Manual) Basophils % (Manual) Seg Neutrophils # Seg Neutrophils # Man Lymphocytes # (Manual) Monocytes # (Manual) Eosinophils # (Manual) Nucleated RBC % Basophils # (Manual) PT INR APTT Heparin Anti-Xa Level ABG pH POC ABG pO2 ABG pO2 ABG HCO3 ABG O2 Saturation ABG Base Excess POC ABG pCO2 ABG Hemoglobin ABG Oxyhemoglobin ABG Sodium ABG Chloride ABG Glucose Oxyhemoglobin Sodium Potassium Chloride Carbon Dioxide BUN Creatinine Glucose POC Glucose 156 H 133 H 155 H Lactic Acid Calcium Phosphorus Magnesium AST ALT Lactate Dehydrogenase Total Bilirubin Direct Bilirubin CK-MB (CK-2) C-Reactive Protein NT-Pro-B Natriuret Pep Total Protein Albumin Arterial Blood Glucose Urine WBC (Auto) Urine Creatinine Digoxin 01/22/20 01/23/20 01/23/20 23:22 05:37 12:59 WBC RBC Hgb Hct MCHC RDW MCV MCH Lymph % (Auto) [place] % (Auto) [place] # Eos # Lymph # (Auto) [place] # (Auto) Eos # (Auto) Seg Neutrophils % Seg Neuts % (Manual) Baso # (Auto) Lymphocytes % (Manual) Monocytes % (Manual) Eosinophils % (Manual) Basophils % (Manual) Seg Neutrophils # Seg Neutrophils # Man Lymphocytes # (Manual) Monocytes # (Manual) Eosinophils # (Manual) Nucleated RBC % Basophils # (Manual) PT INR APTT Heparin Anti-Xa Level ABG pH POC ABG pO2 ABG pO2 ABG HCO3 ABG O2 Saturation ABG Base Excess POC ABG pCO2 ABG Hemoglobin ABG Oxyhemoglobin ABG Sodium ABG Chloride ABG Glucose Oxyhemoglobin Sodium Potassium Chloride Carbon Dioxide BUN Creatinine Glucose POC Glucose 148 H 163 H 175 H Lactic Acid Calcium Phosphorus Magnesium AST ALT Lactate Dehydrogenase Total Bilirubin Direct Bilirubin CK-MB (CK-2) C-Reactive Protein NT-Pro-B Natriuret Pep Total Protein Albumin Arterial Blood Glucose Urine WBC (Auto) Urine Creatinine Digoxin 01/23/20 01/23/20 01/24/20 17:28 23:56 04:30 WBC RBC 3.46 L Hgb 8.8 L Hct 27.8 L MCHC RDW 18.2 H MCV 81 L MCH 25 L Lymph % (Auto) [place] % (Auto) 7.8 H [place] # Eos # Lymph # (Auto) [place] # (Auto) Eos # (Auto) Seg Neutrophils % Seg Neuts % (Manual) Baso # (Auto) Lymphocytes % (Manual) Monocytes % (Manual) Eosinophils % (Manual) Basophils % (Manual) Seg Neutrophils # Seg Neutrophils # Man Lymphocytes # (Manual) Monocytes # (Manual) Eosinophils # (Manual) Nucleated RBC % Basophils # (Manual) PT INR APTT Heparin Anti-Xa Level ABG pH POC ABG pO2 ABG pO2 ABG HCO3 ABG O2 Saturation ABG Base Excess POC ABG pCO2 ABG Hemoglobin ABG Oxyhemoglobin ABG Sodium ABG Chloride ABG Glucose Oxyhemoglobin Sodium Potassium Chloride Carbon Dioxide BUN Creatinine Glucose POC Glucose 165 H 177 H Lactic Acid Calcium Phosphorus Magnesium AST ALT Lactate Dehydrogenase Total Bilirubin Direct Bilirubin CK-MB (CK-2) C-Reactive Protein NT-Pro-B Natriuret Pep Total Protein Albumin Arterial Blood Glucose Urine WBC (Auto) Urine Creatinine Digoxin 01/24/20 01/24/20 01/24/20 04:30 07:18 12:06 WBC RBC Hgb Hct MCHC RDW MCV MCH Lymph % (Auto) [place] % (Auto) [place] # Eos # Lymph # (Auto) [place] # (Auto) Eos # (Auto) Seg Neutrophils % Seg Neuts % (Manual) Baso # (Auto) Lymphocytes % (Manual) Monocytes % (Manual) Eosinophils % (Manual) Basophils % (Manual) Seg Neutrophils # Seg Neutrophils # Man Lymphocytes # (Manual) Monocytes # (Manual) Eosinophils # (Manual) Nucleated RBC % Basophils # (Manual) PT INR APTT Heparin Anti-Xa Level ABG pH POC ABG pO2 ABG pO2 ABG HCO3 ABG O2 Saturation ABG Base Excess POC ABG pCO2 ABG Hemoglobin ABG Oxyhemoglobin ABG Sodium ABG Chloride ABG Glucose Oxyhemoglobin Sodium Potassium Chloride 97.9 L Carbon Dioxide BUN 31 H Creatinine Glucose 146 H POC Glucose 151 H 133 H Lactic Acid Calcium Phosphorus Magnesium AST ALT Lactate Dehydrogenase Total Bilirubin Direct Bilirubin CK-MB (CK-2) C-Reactive Protein NT-Pro-B Natriuret Pep Total Protein Albumin Arterial Blood Glucose Urine WBC (Auto) Urine Creatinine Digoxin 01/24/20 01/25/20 01/25/20 17:36 00:08 04:25 WBC RBC 3.50 L Hgb 8.7 L Hct 27.9 L MCHC 31 L RDW 18.2 H MCV 80 L MCH 25 L Lymph % (Auto) [place] % (Auto) 8.5 H [place] # Eos # Lymph # (Auto) [place] # (Auto) Eos # (Auto) Seg Neutrophils % Seg Neuts % (Manual) Baso # (Auto) Lymphocytes % (Manual) Monocytes % (Manual) Eosinophils % (Manual) Basophils % (Manual) Seg Neutrophils # Seg Neutrophils # Man Lymphocytes # (Manual) Monocytes # (Manual) Eosinophils # (Manual) Nucleated RBC % Basophils # (Manual) PT INR APTT Heparin Anti-Xa Level ABG pH POC ABG pO2 ABG pO2 ABG HCO3 ABG O2 Saturation ABG Base Excess POC ABG pCO2 ABG Hemoglobin ABG Oxyhemoglobin ABG Sodium ABG Chloride ABG Glucose Oxyhemoglobin Sodium Potassium Chloride Carbon Dioxide BUN Creatinine Glucose POC Glucose 133 H 129 H Lactic Acid Calcium Phosphorus Magnesium AST ALT Lactate Dehydrogenase Total Bilirubin Direct Bilirubin CK-MB (CK-2) C-Reactive Protein NT-Pro-B Natriuret Pep Total Protein Albumin Arterial Blood Glucose Urine WBC (Auto) Urine Creatinine Digoxin 01/25/20 01/25/20 01/25/20 04:25 05:38 11:52 WBC RBC Hgb Hct MCHC RDW MCV MCH Lymph % (Auto) [place] % (Auto) [place] # Eos # Lymph # (Auto) [place] # (Auto) Eos # (Auto) Seg Neutrophils % Seg Neuts % (Manual) Baso # (Auto) Lymphocytes % (Manual) Monocytes % (Manual) Eosinophils % (Manual) Basophils % (Manual) Seg Neutrophils # Seg Neutrophils # Man Lymphocytes # (Manual) Monocytes # (Manual) Eosinophils # (Manual) Nucleated RBC % Basophils # (Manual) PT INR APTT Heparin Anti-Xa Level ABG pH POC ABG pO2 ABG pO2 ABG HCO3 ABG O2 Saturation ABG Base Excess POC ABG pCO2 ABG Hemoglobin ABG Oxyhemoglobin ABG Sodium ABG Chloride ABG Glucose Oxyhemoglobin Sodium Potassium Chloride Carbon Dioxide BUN 30 H Creatinine Glucose 134 H POC Glucose 129 H 134 H Lactic Acid Calcium Phosphorus Magnesium AST ALT Lactate Dehydrogenase Total Bilirubin Direct Bilirubin CK-MB (CK-2) C-Reactive Protein NT-Pro-B Natriuret Pep Total Protein Albumin Arterial Blood Glucose Urine WBC (Auto) Urine Creatinine Digoxin 01/25/20 01/25/2001/25/20 17:13 21:02 00:59 WBC RBC Hgb Hct MCHC RDW MCV MCH Lymph % (Auto) [place] % (Auto) [place] # Eos # Lymph # (Auto) [place] # (Auto) Eos # (Auto) Seg Neutrophils % Seg Neuts % (Manual) Baso # (Auto) Lymphocytes % (Manual) Monocytes % (Manual) Eosinophils % (Manual) Basophils % (Manual) Seg Neutrophils # Seg Neutrophils # Man Lymphocytes # (Manual) Monocytes # (Manual) Eosinophils # (Manual) Nucleated RBC % Basophils # (Manual) PT INR APTT Heparin Anti-Xa Level ABG pH POC ABG pO2 ABG pO2 57.5 L ABG HCO3 31.7 H ABG O2 Saturation 90.3 L ABG Base Excess 6.6 H POC ABG pCO2 ABG Hemoglobin 13.0 L ABG Oxyhemoglobin ABG Sodium ABG Chloride ABG Glucose Oxyhemoglobin 87.5 L Sodium Potassium Chloride Carbon Dioxide BUN Creatinine Glucose POC Glucose 124 H 196 H Lactic Acid Calcium Phosphorus Magnesium AST ALT Lactate Dehydrogenase Total Bilirubin Direct Bilirubin CK-MB (CK-2) C-Reactive Protein NT-Pro-B Natriuret Pep Total Protein Albumin Arterial Blood Glucose Urine WBC (Auto) Urine Creatinine Digoxin 01/26/20 01/26/20 01/26/20 03:20 05:46 12:46 WBC RBC Hgb 9.2 L Hct 29.4 L MCHC RDW MCV MCH Lymph % (Auto) [place] % (Auto) [place] # Eos # Lymph # (Auto) [place] # (Auto) Eos # (Auto) Seg Neutrophils % Seg Neuts % (Manual) Baso # (Auto) Lymphocytes % (Manual) Monocytes % (Manual) Eosinophils % (Manual) Basophils % (Manual) Seg Neutrophils # Seg Neutrophils # Man Lymphocytes # (Manual) Monocytes # (Manual) Eosinophils # (Manual) Nucleated RBC % Basophils # (Manual) PT INR APTT Heparin Anti-Xa Level ABG pH POC ABG pO2 ABG pO2 ABG HCO3 ABG O2 Saturation ABG Base Excess POC ABG pCO2 ABG Hemoglobin ABG Oxyhemoglobin ABG Sodium ABG Chloride ABG Glucose Oxyhemoglobin Sodium Potassium Chloride Carbon Dioxide BUN Creatinine Glucose POC Glucose 141 H 122 H Lactic Acid Calcium Phosphorus Magnesium AST ALT Lactate Dehydrogenase Total Bilirubin Direct Bilirubin CK-MB (CK-2) C-Reactive Protein NT-Pro-B Natriuret Pep Total Protein Albumin Arterial Blood Glucose Urine WBC (Auto) Urine Creatinine Digoxin 01/26/20 01/26/20 01/27/20 18:03 23:55 04:47 WBC RBC Hgb Hct MCHC RDW MCV MCH Lymph % (Auto) [place] % (Auto) [place] # Eos # Lymph # (Auto) [place] # (Auto) Eos # (Auto) Seg Neutrophils % Seg Neuts % (Manual) Baso # (Auto) Lymphocytes % (Manual) Monocytes % (Manual) Eosinophils % (Manual) Basophils % (Manual) Seg Neutrophils # Seg Neutrophils # Man Lymphocytes # (Manual) Monocytes # (Manual) Eosinophils # (Manual) Nucleated RBC % Basophils # (Manual) PT INR APTT Heparin Anti-Xa Level ABG pH POC ABG pO2 ABG pO2 ABG HCO3 ABG O2 Saturation ABG Base Excess POC ABG pCO2 ABG Hemoglobin ABG Oxyhemoglobin ABG Sodium ABG Chloride ABG Glucose Oxyhemoglobin Sodium Potassium Chloride Carbon Dioxide BUN 30 H Creatinine 0.7 L Glucose 135 H POC Glucose 142 H 159 H Lactic Acid Calcium Phosphorus Magnesium AST ALT Lactate Dehydrogenase Total Bilirubin Direct Bilirubin CK-MB (CK-2) C-Reactive Protein NT-Pro-B Natriuret Pep Total Protein Albumin Arterial Blood Glucose Urine WBC (Auto) Urine Creatinine Digoxin 01/27/20 01/27/20 01/27/20 05:43 12:06 17:16 WBC RBC Hgb Hct MCHC RDW MCV MCH Lymph % (Auto) [place] % (Auto) [place] # Eos # Lymph # (Auto) [place] # (Auto) Eos # (Auto) Seg Neutrophils % Seg Neuts % (Manual) Baso # (Auto) Lymphocytes % (Manual) Monocytes % (Manual) Eosinophils % (Manual) Basophils % (Manual) Seg Neutrophils # Seg Neutrophils # Man Lymphocytes # (Manual) Monocytes # (Manual) Eosinophils # (Manual) Nucleated RBC % Basophils # (Manual) PT INR APTT Heparin Anti-Xa Level ABG pH POC ABG pO2 ABG pO2 ABG HCO3 ABG O2 Saturation ABG Base Excess POC ABG pCO2 ABG Hemoglobin ABG Oxyhemoglobin ABG Sodium ABG Chloride ABG Glucose Oxyhemoglobin Sodium Potassium Chloride Carbon Dioxide BUN Creatinine Glucose POC Glucose 143 H 142 H 128 H Lactic Acid Calcium Phosphorus Magnesium AST ALT Lactate Dehydrogenase Total Bilirubin Direct Bilirubin CK-MB (CK-2) C-Reactive Protein NT-Pro-B Natriuret Pep Total Protein Albumin Arterial Blood Glucose Urine WBC (Auto) Urine Creatinine Digoxin 01/27/20 01/28/20 01/28/20 23:55 04:37 05:55 WBC RBC Hgb 9.4 L Hct 29.9 L MCHC RDW MCV MCH Lymph % (Auto) [place] % (Auto) [place] # Eos # Lymph # (Auto) [place] # (Auto) Eos # (Auto) Seg Neutrophils % Seg Neuts % (Manual) Baso # (Auto) Lymphocytes % (Manual) Monocytes % (Manual) Eosinophils % (Manual) Basophils % (Manual) Seg Neutrophils # Seg Neutrophils # Man Lymphocytes # (Manual) Monocytes # (Manual) Eosinophils # (Manual) Nucleated RBC % Basophils # (Manual) PT INR APTT Heparin Anti-Xa Level ABG pH POC ABG pO2 ABG pO2 ABG HCO3 ABG O2 Saturation ABG Base Excess POC ABG pCO2 ABG Hemoglobin ABG Oxyhemoglobin ABG Sodium ABG Chloride ABG Glucose Oxyhemoglobin Sodium Potassium Chloride Carbon Dioxide BUN Creatinine Glucose POC Glucose 166 H 169 H Lactic Acid Calcium Phosphorus Magnesium AST ALT Lactate Dehydrogenase Total Bilirubin Direct Bilirubin CK-MB (CK-2) C-Reactive Protein NT-Pro-B Natriuret Pep Total Protein Albumin Arterial Blood Glucose Urine WBC (Auto) Urine Creatinine Digoxin 01/28/20 01/28/20 01/28/20 11:58 17:26 23:46 WBC RBC Hgb Hct MCHC RDW MCV MCH Lymph % (Auto) [place] % (Auto) [place] # Eos # Lymph # (Auto) [place] # (Auto) Eos # (Auto) Seg Neutrophils % Seg Neuts % (Manual) Baso # (Auto) Lymphocytes % (Manual) Monocytes % (Manual) Eosinophils % (Manual) Basophils % (Manual) Seg Neutrophils # Seg Neutrophils # Man Lymphocytes # (Manual) Monocytes # (Manual) Eosinophils # (Manual) Nucleated RBC % Basophils # (Manual) PT INR APTT Heparin Anti-Xa Level ABG pH POC ABG pO2 ABG pO2 ABG HCO3 ABG O2 Saturation ABG Base Excess POC ABG pCO2 ABG Hemoglobin ABG Oxyhemoglobin ABG Sodium ABG Chloride ABG Glucose Oxyhemoglobin Sodium Potassium Chloride Carbon Dioxide BUN Creatinine Glucose POC Glucose 130 H 126 H 150 H Lactic Acid Calcium Phosphorus Magnesium AST ALT Lactate Dehydrogenase Total Bilirubin Direct Bilirubin CK-MB (CK-2) C-Reactive Protein NT-Pro-B Natriuret Pep Total Protein Albumin Arterial Blood Glucose Urine WBC (Auto) Urine Creatinine Digoxin 01/29/20 01/29/20 01/29/20 04:55 06:00 12:28 WBC RBC Hgb Hct MCHC RDW MCV MCH Lymph % (Auto) [place] % (Auto) [place] # Eos # Lymph # (Auto) [place] # (Auto) Eos # (Auto) Seg Neutrophils % Seg Neuts % (Manual) Baso # (Auto) Lymphocytes % (Manual) Monocytes % (Manual) Eosinophils % (Manual) Basophils % (Manual) Seg Neutrophils # Seg Neutrophils # Man Lymphocytes # (Manual) Monocytes # (Manual) Eosinophils # (Manual) Nucleated RBC % Basophils # (Manual) PT INR APTT Heparin Anti-Xa Level ABG pH POC ABG pO2 ABG pO2 ABG HCO3 ABG O2 Saturation ABG Base Excess POC ABG pCO2 ABG Hemoglobin ABG Oxyhemoglobin ABG Sodium ABG Chloride ABG Glucose Oxyhemoglobin Sodium Potassium Chloride Carbon Dioxide 34 H BUN Creatinine 0.6 L Glucose 152 H POC Glucose 157 H 156 H Lactic Acid Calcium Phosphorus Magnesium AST ALT Lactate Dehydrogenase Total Bilirubin Direct Bilirubin CK-MB (CK-2) C-Reactive Protein NT-Pro-B Natriuret Pep Total Protein Albumin Arterial Blood Glucose Urine WBC (Auto) Urine Creatinine Digoxin 01/29/20 01/30/20 01/30/20 19:06 00:29 05:39 WBC RBC Hgb Hct MCHC RDW MCV MCH Lymph % (Auto) [place] % (Auto) [place] # Eos # Lymph # (Auto) [place] # (Auto) Eos # (Auto) Seg Neutrophils % Seg Neuts % (Manual) Baso # (Auto) Lymphocytes % (Manual) Monocytes % (Manual) Eosinophils % (Manual) Basophils % (Manual) Seg Neutrophils # Seg Neutrophils # Man Lymphocytes # (Manual) Monocytes # (Manual) Eosinophils # (Manual) Nucleated RBC % Basophils # (Manual) PT INR APTT Heparin Anti-Xa Level ABG pH POC ABG pO2 ABG pO2 ABG HCO3 ABG O2 Saturation ABG Base Excess POC ABG pCO2 ABG Hemoglobin ABG Oxyhemoglobin ABG Sodium ABG Chloride ABG Glucose Oxyhemoglobin Sodium Potassium Chloride Carbon Dioxide BUN Creatinine Glucose POC Glucose 152 H 132 H 159 H Lactic Acid Calcium Phosphorus Magnesium AST ALT Lactate Dehydrogenase Total Bilirubin Direct Bilirubin CK-MB (CK-2) C-Reactive Protein NT-Pro-B Natriuret Pep Total Protein Albumin Arterial Blood Glucose Urine WBC (Auto) Urine Creatinine Digoxin 01/30/20 01/30/20 01/30/20 12:27 17:42 23:28 WBC RBC Hgb Hct MCHC RDW MCV MCH Lymph % (Auto) [place] % (Auto) [place] # Eos # Lymph # (Auto) [place] # (Auto) Eos # (Auto) Seg Neutrophils % Seg Neuts % (Manual) Baso # (Auto) Lymphocytes % (Manual) Monocytes % (Manual) Eosinophils % (Manual) Basophils % (Manual) Seg Neutrophils # Seg Neutrophils # Man Lymphocytes # (Manual) Monocytes # (Manual) Eosinophils # (Manual) Nucleated RBC % Basophils # (Manual) PT INR APTT Heparin Anti-Xa Level ABG pH POC ABG pO2 ABG pO2 ABG HCO3 ABG O2 Saturation ABG Base Excess POC ABG pCO2 ABG Hemoglobin ABG Oxyhemoglobin ABG Sodium ABG Chloride ABG Glucose Oxyhemoglobin Sodium Potassium Chloride Carbon Dioxide BUN Creatinine Glucose POC Glucose 151 H 144 H 164 H Lactic Acid Calcium Phosphorus Magnesium AST ALT Lactate Dehydrogenase Total Bilirubin Direct Bilirubin CK-MB (CK-2) C-Reactive Protein NT-Pro-B Natriuret Pep Total Protein Albumin Arterial Blood Glucose Urine WBC (Auto) Urine Creatinine Digoxin 01/31/20 01/31/20 01/31/20 05:51 11:51 18:06 WBC RBC Hgb Hct MCHC RDW MCV MCH Lymph % (Auto) [place] % (Auto) [place] # Eos # Lymph # (Auto) [place] # (Auto) Eos # (Auto) Seg Neutrophils % Seg Neuts % (Manual) Baso # (Auto) Lymphocytes % (Manual) Monocytes % (Manual) Eosinophils % (Manual) Basophils % (Manual) Seg Neutrophils # Seg Neutrophils # Man Lymphocytes # (Manual) Monocytes # (Manual) Eosinophils # (Manual) Nucleated RBC % Basophils # (Manual) PT INR APTT Heparin Anti-Xa Level ABG pH POC ABG pO2 ABG pO2 ABG HCO3 ABG O2 Saturation ABG Base Excess POC ABG pCO2 ABG Hemoglobin ABG Oxyhemoglobin ABG Sodium ABG Chloride ABG Glucose Oxyhemoglobin Sodium Potassium Chloride Carbon Dioxide BUN Creatinine Glucose POC Glucose 131 H 167 H 210 H Lactic Acid Calcium Phosphorus Magnesium AST ALT Lactate Dehydrogenase Total Bilirubin Direct Bilirubin CK-MB (CK-2) C-Reactive Protein NT-Pro-B Natriuret Pep Total Protein Albumin Arterial Blood Glucose Urine WBC (Auto) Urine Creatinine Digoxin 01/31/20 01/31/20 02/01/20 19:24 Unknown 00:34 WBC RBC Hgb Hct MCHC RDW MCV MCH Lymph % (Auto) [place] % (Auto) [place] # Eos # Lymph # (Auto) [place] # (Auto) Eos # (Auto) Seg Neutrophils % Seg Neuts % (Manual) Baso # (Auto) Lymphocytes % (Manual) Monocytes % (Manual) Eosinophils % (Manual) Basophils % (Manual) Seg Neutrophils # Seg Neutrophils # Man Lymphocytes # (Manual) Monocytes # (Manual) Eosinophils # (Manual) Nucleated RBC % Basophils # (Manual) PT INR APTT Heparin Anti-Xa Level ABG pH POC ABG pO2 ABG pO2 ABG HCO3 ABG O2 Saturation ABG Base Excess POC ABG pCO2 ABG Hemoglobin ABG Oxyhemoglobin ABG Sodium ABG Chloride ABG Glucose Oxyhemoglobin Sodium Potassium Chloride 95.3 L Carbon Dioxide 33 H BUN 36 H Creatinine Glucose 187 H POC Glucose 116 H Lactic Acid Calcium Phosphorus Magnesium AST ALT Lactate Dehydrogenase Total Bilirubin Direct Bilirubin CK-MB (CK-2) C-Reactive Protein NT-Pro-B Natriuret Pep Total Protein Albumin Arterial Blood Glucose Urine WBC (Auto) Urine Creatinine 57.4 H Digoxin 02/01/20 02/01/20 02/01/20 05:24 10:40 12:29 WBC RBC Hgb Hct MCHC RDW MCV MCH Lymph % (Auto) [place] % (Auto) [place] # Eos # Lymph # (Auto) [place] # (Auto) Eos # (Auto) Seg Neutrophils % Seg Neuts % (Manual) Baso # (Auto) Lymphocytes % (Manual) Monocytes % (Manual) Eosinophils % (Manual) Basophils % (Manual) Seg Neutrophils # Seg Neutrophils # Man Lymphocytes # (Manual) Monocytes # (Manual) Eosinophils # (Manual) Nucleated RBC % Basophils # (Manual) PT INR APTT Heparin Anti-Xa Level ABG pH POC ABG pO2 ABG pO2 ABG HCO3 ABG O2 Saturation ABG Base Excess POC ABG pCO2 ABG Hemoglobin ABG Oxyhemoglobin ABG Sodium ABG Chloride ABG Glucose Oxyhemoglobin Sodium Potassium Chloride Carbon Dioxide BUN Creatinine Glucose POC Glucose 142 H 165 H 151 H Lactic Acid Calcium Phosphorus Magnesium AST ALT Lactate Dehydrogenase Total Bilirubin Direct Bilirubin CK-MB (CK-2) C-Reactive Protein NT-Pro-B Natriuret Pep Total Protein Albumin Arterial Blood Glucose Urine WBC (Auto) Urine Creatinine Digoxin 02/01/20 02/01/20 02/02/20 17:16 23:23 06:36 WBC RBC Hgb Hct MCHC RDW MCV MCH Lymph % (Auto) [place] % (Auto) [place] # Eos # Lymph # (Auto) [place] # (Auto) Eos # (Auto) Seg Neutrophils % Seg Neuts % (Manual) Baso # (Auto) Lymphocytes % (Manual) Monocytes % (Manual) Eosinophils % (Manual) Basophils % (Manual) Seg Neutrophils # Seg Neutrophils # Man Lymphocytes # (Manual) Monocytes # (Manual) Eosinophils # (Manual) Nucleated RBC % Basophils # (Manual) PT INR APTT Heparin Anti-Xa Level ABG pH POC ABG pO2 ABG pO2 ABG HCO3 ABG O2 Saturation ABG Base Excess POC ABG pCO2 ABG Hemoglobin ABG Oxyhemoglobin ABG Sodium ABG Chloride ABG Glucose Oxyhemoglobin Sodium Potassium Chloride Carbon Dioxide BUN Creatinine Glucose POC Glucose 137 H 145 H 181 H Lactic Acid Calcium Phosphorus Magnesium AST ALT Lactate Dehydrogenase Total Bilirubin Direct Bilirubin CK-MB (CK-2) C-Reactive Protein NT-Pro-B Natriuret Pep Total Protein Albumin Arterial Blood Glucose Urine WBC (Auto) Urine Creatinine Digoxin 02/02/20 02/02/20 02/02/20 10:01 12:05 17:54 WBC RBC Hgb Hct MCHC RDW MCV MCH Lymph % (Auto) [place] % (Auto) [place] # Eos # Lymph # (Auto) [place] # (Auto) Eos # (Auto) Seg Neutrophils % Seg Neuts % (Manual) Baso # (Auto) Lymphocytes % (Manual) Monocytes % (Manual) Eosinophils % (Manual) Basophils % (Manual) Seg Neutrophils # Seg Neutrophils # Man Lymphocytes # (Manual) Monocytes # (Manual) Eosinophils # (Manual) Nucleated RBC % Basophils # (Manual) PT INR APTT Heparin Anti-Xa Level ABG pH POC ABG pO2 ABG pO2 ABG HCO3 ABG O2 Saturation ABG Base Excess POC ABG pCO2 ABG Hemoglobin ABG Oxyhemoglobin ABG Sodium ABG Chloride ABG Glucose Oxyhemoglobin Sodium Potassium Chloride 95.3 L Carbon Dioxide BUN 44 H Creatinine Glucose 234 H POC Glucose 184 H 127 H Lactic Acid Calcium Phosphorus Magnesium AST 363 H ALT 457 H Lactate Dehydrogenase Total Bilirubin Direct Bilirubin CK-MB (CK-2) C-Reactive Protein NT-Pro-B Natriuret Pep Total Protein Albumin 3.0 L Arterial Blood Glucose Urine WBC (Auto) Urine Creatinine Digoxin 02/02/20 02/03/20 02/03/20 23:47 05:32 07:04 WBC 13.0 H RBC Hgb 9.5 L Hct 30.8 L MCHC 31 L RDW 19.6 H MCV 81 L MCH 25 L Lymph % (Auto) [place] % (Auto) 9.4 H [place] # Eos # Lymph # (Auto) [place] # (Auto) 1.2 H Eos # (Auto) Seg Neutrophils % 72.3 H Seg Neuts % (Manual) Baso # (Auto) Lymphocytes % (Manual) Monocytes % (Manual) Eosinophils % (Manual) Basophils % (Manual) Seg Neutrophils # 9.4 H Seg Neutrophils # Man Lymphocytes # (Manual) Monocytes # (Manual) Eosinophils # (Manual) Nucleated RBC % Basophils # (Manual) PT INR APTT Heparin Anti-Xa Level ABG pH POC ABG pO2 ABG pO2 ABG HCO3 ABG O2 Saturation ABG Base Excess POC ABG pCO2 ABG Hemoglobin ABG Oxyhemoglobin ABG Sodium ABG Chloride ABG Glucose Oxyhemoglobin Sodium Potassium Chloride Carbon Dioxide BUN Creatinine Glucose POC Glucose 124 H 129 H Lactic Acid Calcium Phosphorus Magnesium AST ALT Lactate Dehydrogenase Total Bilirubin Direct Bilirubin CK-MB (CK-2) C-Reactive Protein NT-Pro-B Natriuret Pep Total Protein Albumin Arterial Blood Glucose Urine WBC (Auto) Urine Creatinine Digoxin 02/03/20 02/03/20 02/03/20 07:04 11:32 12:49 WBC RBC Hgb Hct MCHC RDW MCV MCH Lymph % (Auto) [place] % (Auto) [place] # Eos # Lymph # (Auto) [place] # (Auto) Eos # (Auto) Seg Neutrophils % Seg Neuts % (Manual) Baso # (Auto) Lymphocytes % (Manual) Monocytes % (Manual) Eosinophils % (Manual) Basophils % (Manual) Seg Neutrophils # Seg Neutrophils # Man Lymphocytes # (Manual) Monocytes # (Manual) Eosinophils # (Manual) Nucleated RBC % Basophils # (Manual) PT INR APTT Heparin Anti-Xa Level ABG pH POC ABG pO2 ABG pO2 ABG HCO3 ABG O2 Saturation ABG Base Excess POC ABG pCO2 ABG Hemoglobin ABG Oxyhemoglobin ABG Sodium ABG Chloride ABG Glucose Oxyhemoglobin Sodium Potassium Chloride 97.9 L Carbon Dioxide 33 H BUN 39 H Creatinine Glucose 119 H POC Glucose 138 H Lactic Acid Calcium Phosphorus Magnesium 2.60 H AST ALT Lactate Dehydrogenase Total Bilirubin Direct Bilirubin CK-MB (CK-2) C-Reactive Protein NT-Pro-B Natriuret Pep Total Protein Albumin Arterial Blood Glucose Urine WBC (Auto) Urine Creatinine Digoxin 02/03/20 02/04/20 02/04/20 18:28 16:24 16:24 WBC RBC 3.38 L Hgb 8.6 L Hct 26.9 L MCHC RDW 19.5 H MCV 80 L MCH 26 L Lymph % (Auto) [place] % (Auto) [place] # Eos # Lymph # (Auto) [place] # (Auto) Eos # (Auto) Seg Neutrophils % Seg Neuts % (Manual) Baso # (Auto) Lymphocytes % (Manual) Monocytes % (Manual) Eosinophils % (Manual) Basophils % (Manual) Seg Neutrophils # Seg Neutrophils # Man Lymphocytes # (Manual) Monocytes # (Manual) Eosinophils # (Manual) Nucleated RBC % Basophils # (Manual) PT INR APTT Heparin Anti-Xa Level ABG pH POC ABG pO2 ABG pO2 ABG HCO3 ABG O2 Saturation ABG Base Excess POC ABG pCO2 ABG Hemoglobin ABG Oxyhemoglobin ABG Sodium ABG Chloride ABG Glucose Oxyhemoglobin Sodium Potassium 3.4 L Chloride Carbon Dioxide 31 H BUN 37 H Creatinine Glucose 70 L POC Glucose 118 H Lactic Acid Calcium Phosphorus Magnesium AST 169 H ALT 394 H Lactate Dehydrogenase Total Bilirubin 1.50 H Direct Bilirubin CK-MB (CK-2) C-Reactive Protein NT-Pro-B Natriuret Pep Total Protein Albumin 2.9 L Arterial Blood Glucose Urine WBC (Auto) Urine Creatinine Digoxin 02/05/20 02/05/20 02/05/20 00:41 06:37 17:14 WBC RBC Hgb Hct MCHC RDW MCV MCH Lymph % (Auto) [place] % (Auto) [place] # Eos # Lymph # (Auto) [place] # (Auto) Eos # (Auto) Seg Neutrophils % Seg Neuts % (Manual) Baso # (Auto) Lymphocytes % (Manual) Monocytes % (Manual) Eosinophils % (Manual) Basophils % (Manual) Seg Neutrophils # Seg Neutrophils # Man Lymphocytes # (Manual) Monocytes # (Manual) Eosinophils # (Manual) Nucleated RBC % Basophils # (Manual) PT INR APTT Heparin Anti-Xa Level ABG pH POC ABG pO2 ABG pO2 ABG HCO3 ABG O2 Saturation ABG Base Excess POC ABG pCO2 ABG Hemoglobin ABG Oxyhemoglobin ABG Sodium ABG Chloride ABG Glucose Oxyhemoglobin Sodium Potassium 3.1 L Chloride Carbon Dioxide 35 H BUN 32 H Creatinine 0.7 L Glucose POC Glucose 69 L 127 H Lactic Acid Calcium Phosphorus Magnesium AST 134 H ALT 352 H Lactate Dehydrogenase Total Bilirubin 1.60 H Direct Bilirubin CK-MB (CK-2) C-Reactive Protein NT-Pro-B Natriuret Pep Total Protein Albumin 2.9 L Arterial Blood Glucose Urine WBC (Auto) Urine Creatinine Digoxin 02/05/20 02/06/20 02/06/20 23:43 05:32 08:01 WBC RBC Hgb Hct MCHC RDW MCV MCH Lymph % (Auto) [place] % (Auto) [place] # Eos # Lymph # (Auto) [place] # (Auto) Eos # (Auto) Seg Neutrophils % Seg Neuts % (Manual) Baso # (Auto) Lymphocytes % (Manual) Monocytes % (Manual) Eosinophils % (Manual) Basophils % (Manual) Seg Neutrophils # Seg Neutrophils # Man Lymphocytes # (Manual) Monocytes # (Manual) Eosinophils # (Manual) Nucleated RBC % Basophils # (Manual) PT INR APTT Heparin Anti-Xa Level ABG pH POC ABG pO2 ABG pO2 ABG HCO3 ABG O2 Saturation ABG Base Excess POC ABG pCO2 ABG Hemoglobin ABG Oxyhemoglobin ABG Sodium ABG Chloride ABG Glucose Oxyhemoglobin Sodium Potassium Chloride Carbon Dioxide BUN 40 H Creatinine Glucose 132 H POC Glucose 129 H 131 H Lactic Acid Calcium Phosphorus Magnesium AST ALT Lactate Dehydrogenase Total Bilirubin Direct Bilirubin CK-MB (CK-2) C-Reactive Protein NT-Pro-B Natriuret Pep Total Protein Albumin Arterial Blood Glucose Urine WBC (Auto) Urine Creatinine Digoxin 02/06/20 02/06/20 02/06/20 11:51 16:28 17:32 WBC RBC Hgb Hct MCHC RDW MCV MCH Lymph % (Auto) [place] % (Auto) [place] # Eos # Lymph # (Auto) [place] # (Auto) Eos # (Auto) Seg Neutrophils % Seg Neuts % (Manual) Baso # (Auto) Lymphocytes % (Manual) Monocytes % (Manual) Eosinophils % (Manual) Basophils % (Manual) Seg Neutrophils # Seg Neutrophils # Man Lymphocytes # (Manual) Monocytes # (Manual) Eosinophils # (Manual) Nucleated RBC % Basophils # (Manual) PT INR APTT Heparin Anti-Xa Level ABG pH POC ABG pO2 ABG pO2 ABG HCO3 ABG O2 Saturation ABG Base Excess POC ABG pCO2 ABG Hemoglobin ABG Oxyhemoglobin ABG Sodium ABG Chloride ABG Glucose Oxyhemoglobin Sodium Potassium Chloride Carbon Dioxide BUN Creatinine Glucose POC Glucose 167 H 129 H Lactic Acid Calcium Phosphorus Magnesium AST 824 H ALT 948 H Lactate Dehydrogenase Total Bilirubin 1.70 H Direct Bilirubin 1.2 H CK-MB (CK-2) C-Reactive Protein NT-Pro-B Natriuret Pep Total Protein Albumin 2.9 L Arterial Blood Glucose Urine WBC (Auto) Urine Creatinine Digoxin 02/07/20 02/07/20 02/07/20 00:11 04:57 04:57 WBC RBC Hgb 9.2 L Hct 29.7 L MCHC 31 L RDW 20.2 H MCV 80 L MCH 25 L Lymph % (Auto) [place] % (Auto) [place] # Eos # Lymph # (Auto) [place] # (Auto) Eos # (Auto) Seg Neutrophils % Seg Neuts % (Manual) Baso # (Auto) Lymphocytes % (Manual) Monocytes % (Manual) Eosinophils % (Manual) Basophils % (Manual) Seg Neutrophils # Seg Neutrophils # Man Lymphocytes # (Manual) Monocytes # (Manual) Eosinophils # (Manual) Nucleated RBC % Basophils # (Manual) PT INR APTT Heparin Anti-Xa Level ABG pH POC ABG pO2 ABG pO2 ABG HCO3 ABG O2 Saturation ABG Base Excess POC ABG pCO2 ABG Hemoglobin ABG Oxyhemoglobin ABG Sodium ABG Chloride ABG Glucose Oxyhemoglobin Sodium Potassium 3.4 L D Chloride Carbon Dioxide 32 H BUN 39 H Creatinine Glucose 106 H POC Glucose 121 H Lactic Acid Calcium Phosphorus Magnesium AST ALT Lactate Dehydrogenase Total Bilirubin Direct Bilirubin CK-MB (CK-2) C-Reactive Protein NT-Pro-B Natriuret Pep Total Protein Albumin Arterial Blood Glucose Urine WBC (Auto) Urine Creatinine Digoxin 02/07/20 02/07/20 02/07/20 15:03 15:03 17:11 WBC RBC Hgb Hct MCHC RDW MCV MCH Lymph % (Auto) [place] % (Auto) [place] # Eos # Lymph # (Auto) [place] # (Auto) Eos # (Auto) Seg Neutrophils % Seg Neuts % (Manual) Baso # (Auto) Lymphocytes % (Manual) Monocytes % (Manual) Eosinophils % (Manual) Basophils % (Manual) Seg Neutrophils # Seg Neutrophils # Man Lymphocytes # (Manual) Monocytes # (Manual) Eosinophils # (Manual) Nucleated RBC % Basophils # (Manual) PT 27.0 H INR 2.46 H APTT Heparin Anti-Xa Level ABG pH POC ABG pO2 ABG pO2 ABG HCO3 ABG O2 Saturation ABG Base Excess POC ABG pCO2 ABG Hemoglobin ABG Oxyhemoglobin ABG Sodium ABG Chloride ABG Glucose Oxyhemoglobin Sodium Potassium Chloride Carbon Dioxide BUN Creatinine Glucose POC Glucose 109 H Lactic Acid Calcium Phosphorus Magnesium AST 424 H ALT 796 H Lactate Dehydrogenase Total Bilirubin 1.60 H Direct Bilirubin 1.2 H CK-MB (CK-2) C-Reactive Protein NT-Pro-B Natriuret Pep Total Protein Albumin 2.9 L Arterial Blood Glucose Urine WBC (Auto) Urine Creatinine Digoxin 02/08/20 02/08/20 02/08/20 12:14 17:44 19:00 WBC RBC Hgb Hct MCHC RDW MCV MCH Lymph % (Auto) [place] % (Auto) [place] # Eos # Lymph # (Auto) [place] # (Auto) Eos # (Auto) Seg Neutrophils % Seg Neuts % (Manual) Baso # (Auto) Lymphocytes % (Manual) Monocytes % (Manual) Eosinophils % (Manual) Basophils % (Manual) Seg Neutrophils # Seg Neutrophils # Man Lymphocytes # (Manual) Monocytes # (Manual) Eosinophils # (Manual) Nucleated RBC % Basophils # (Manual) PT INR APTT Heparin Anti-Xa Level ABG pH POC ABG pO2 ABG pO2 ABG HCO3 ABG O2 Saturation ABG Base Excess POC ABG pCO2 ABG Hemoglobin ABG Oxyhemoglobin ABG Sodium ABG Chloride ABG Glucose Oxyhemoglobin Sodium Potassium Chloride Carbon Dioxide BUN Creatinine Glucose POC Glucose 111 H 107 H Lactic Acid Calcium Phosphorus Magnesium AST 309 H ALT 650 H Lactate Dehydrogenase Total Bilirubin 1.30 H Direct Bilirubin 0.9 H CK-MB (CK-2) C-Reactive Protein NT-Pro-B Natriuret Pep Total Protein 6.2 L Albumin 2.7 L Arterial Blood Glucose Urine WBC (Auto) Urine Creatinine Digoxin 02/09/20 02/09/20 02/09/20 05:41 12:28 18:07 WBC RBC Hgb Hct MCHC RDW MCV MCH Lymph % (Auto) [place] % (Auto) [place] # Eos # Lymph # (Auto) [place] # (Auto) Eos # (Auto) Seg Neutrophils % Seg Neuts % (Manual) Baso # (Auto) Lymphocytes % (Manual) Monocytes % (Manual) Eosinophils % (Manual) Basophils % (Manual) Seg Neutrophils # Seg Neutrophils # Man Lymphocytes # (Manual) Monocytes # (Manual) Eosinophils # (Manual) Nucleated RBC % Basophils # (Manual) PT INR APTT Heparin Anti-Xa Level ABG pH POC ABG pO2 ABG pO2 ABG HCO3 ABG O2 Saturation ABG Base Excess POC ABG pCO2 ABG Hemoglobin ABG Oxyhemoglobin ABG Sodium ABG Chloride ABG Glucose Oxyhemoglobin Sodium Potassium Chloride Carbon Dioxide BUN Creatinine Glucose POC Glucose 113 H 140 H 143 H Lactic Acid Calcium Phosphorus Magnesium AST ALT Lactate Dehydrogenase Total Bilirubin Direct Bilirubin CK-MB (CK-2) C-Reactive Protein NT-Pro-B Natriuret Pep Total Protein Albumin Arterial Blood Glucose Urine WBC (Auto) Urine Creatinine Digoxin 02/09/20 02/09/20 02/10/20 21:40 23:45 06:00 WBC RBC Hgb Hct MCHC RDW MCV MCH Lymph % (Auto) [place] % (Auto) [place] # Eos # Lymph # (Auto) [place] # (Auto) Eos # (Auto) Seg Neutrophils % Seg Neuts % (Manual) Baso # (Auto) Lymphocytes % (Manual) Monocytes % (Manual) Eosinophils % (Manual) Basophils % (Manual) Seg Neutrophils # Seg Neutrophils # Man Lymphocytes # (Manual) Monocytes # (Manual) Eosinophils # (Manual) Nucleated RBC % Basophils # (Manual) PT INR APTT Heparin Anti-Xa Level ABG pH POC ABG pO2 ABG pO2 59.8 L ABG HCO3 33.3 H ABG O2 Saturation 88.9 L ABG Base Excess 7.4 H POC ABG pCO2 ABG Hemoglobin 10.4 L ABG Oxyhemoglobin ABG Sodium ABG Chloride ABG Glucose Oxyhemoglobin 86.3 L Sodium Potassium Chloride Carbon Dioxide BUN Creatinine Glucose POC Glucose 127 H 114 H Lactic Acid Calcium Phosphorus Magnesium AST ALT Lactate Dehydrogenase Total Bilirubin Direct Bilirubin CK-MB (CK-2) C-Reactive Protein NT-Pro-B Natriuret Pep Total Protein Albumin Arterial Blood Glucose Urine WBC (Auto) Urine Creatinine Digoxin 02/10/20 02/10/20 02/10/20 07:40 07:40 13:38 WBC 11.5 H RBC Hgb 10.6 L Hct 34.7 L MCHC 31 L RDW 19.8 H MCV 79 L MCH 24 L Lymph % (Auto) [place] % (Auto) 9.2 H [place] # Eos # Lymph # (Auto) [place] # (Auto) 1.1 H Eos # (Auto) Seg Neutrophils % Seg Neuts % (Manual) Baso # (Auto) Lymphocytes % (Manual) Monocytes % (Manual) Eosinophils % (Manual) Basophils % (Manual) Seg Neutrophils # Seg Neutrophils # Man Lymphocytes # (Manual) Monocytes # (Manual) Eosinophils # (Manual) Nucleated RBC % Basophils # (Manual) PT INR APTT Heparin Anti-Xa Level ABG pH POC ABG pO2 ABG pO2 ABG HCO3 ABG O2 Saturation ABG Base Excess POC ABG pCO2 ABG Hemoglobin ABG Oxyhemoglobin ABG Sodium ABG Chloride ABG Glucose Oxyhemoglobin Sodium 151 H Potassium Chloride 107.2 H Carbon Dioxide 36 H BUN 25 H Creatinine 0.7 L Glucose 114 H POC Glucose 116 H Lactic Acid Calcium Phosphorus Magnesium 2.40 H AST ALT Lactate Dehydrogenase Total Bilirubin Direct Bilirubin CK-MB (CK-2) C-Reactive Protein NT-Pro-B Natriuret Pep Total Protein Albumin Arterial Blood Glucose Urine WBC (Auto) Urine Creatinine Digoxin 02/10/20 02/11/20 02/11/20 17:44 05:47 12:21 WBC RBC Hgb Hct MCHC RDW MCV MCH Lymph % (Auto) [place] % (Auto) [place] # Eos # Lymph # (Auto) [place] # (Auto) Eos # (Auto) Seg Neutrophils % Seg Neuts % (Manual) Baso # (Auto) Lymphocytes % (Manual) Monocytes % (Manual) Eosinophils % (Manual) Basophils % (Manual) Seg Neutrophils # Seg Neutrophils # Man Lymphocytes # (Manual) Monocytes # (Manual) Eosinophils # (Manual) Nucleated RBC % Basophils # (Manual) PT INR APTT Heparin Anti-Xa Level ABG pH POC ABG pO2 ABG pO2 ABG HCO3 ABG O2 Saturation ABG Base Excess POC ABG pCO2 ABG Hemoglobin ABG Oxyhemoglobin ABG Sodium ABG Chloride ABG Glucose Oxyhemoglobin Sodium Potassium Chloride Carbon Dioxide BUN Creatinine Glucose POC Glucose 139 H 173 H 143 H Lactic Acid Calcium Phosphorus Magnesium AST ALT Lactate Dehydrogenase Total Bilirubin Direct Bilirubin CK-MB (CK-2) C-Reactive Protein NT-Pro-B Natriuret Pep Total Protein Albumin Arterial Blood Glucose Urine WBC (Auto) Urine Creatinine Digoxin 02/11/20 02/11/20 02/12/20 13:43 14:11 00:15 WBC RBC Hgb Hct MCHC RDW MCV MCH Lymph % (Auto) [place] % (Auto) [place] # Eos # Lymph # (Auto) [place] # (Auto) Eos # (Auto) Seg Neutrophils % Seg Neuts % (Manual) Baso # (Auto) Lymphocytes % (Manual) Monocytes % (Manual) Eosinophils % (Manual) Basophils % (Manual) Seg Neutrophils # Seg Neutrophils # Man Lymphocytes # (Manual) Monocytes # (Manual) Eosinophils # (Manual) Nucleated RBC % Basophils # (Manual) PT INR APTT Heparin Anti-Xa Level ABG pH 7.502 H POC ABG pO2 77.7 L ABG pO2 ABG HCO3 ABG O2 Saturation ABG Base Excess POC ABG pCO2 ABG Hemoglobin 11.1 L ABG Oxyhemoglobin ABG Sodium ABG Chloride 108.0 H ABG Glucose 151 H Oxyhemoglobin Sodium Potassium Chloride Carbon Dioxide BUN Creatinine Glucose POC Glucose 130 H 125 H Lactic Acid Calcium Phosphorus Magnesium AST ALT Lactate Dehydrogenase Total Bilirubin Direct Bilirubin CK-MB (CK-2) C-Reactive Protein NT-Pro-B Natriuret Pep Total Protein Albumin Arterial Blood Glucose 151 H Urine WBC (Auto) Urine Creatinine Digoxin 02/12/20 02/12/20 02/12/20 04:56 04:56 17:42 WBC RBC Hgb 9.9 L Hct 31.8 L MCHC 31 L RDW 19.4 H MCV 79 L MCH 25 L Lymph % (Auto) [place] % (Auto) 10.3 H [place] # Eos # Lymph # (Auto) [place] # (Auto) 1.0 H Eos # (Auto) Seg Neutrophils % Seg Neuts % (Manual) Baso # (Auto) Lymphocytes % (Manual) Monocytes % (Manual) Eosinophils % (Manual) Basophils % (Manual) Seg Neutrophils # Seg Neutrophils # Man Lymphocytes # (Manual) Monocytes # (Manual) Eosinophils # (Manual) Nucleated RBC % Basophils # (Manual) PT INR APTT Heparin Anti-Xa Level ABG pH POC ABG pO2 ABG pO2 ABG HCO3 ABG O2 Saturation ABG Base Excess POC ABG pCO2 ABG Hemoglobin ABG Oxyhemoglobin ABG Sodium ABG Chloride ABG Glucose Oxyhemoglobin Sodium 149 H Potassium Chloride 108.6 H Carbon Dioxide BUN 28 H Creatinine 0.7 L Glucose 108 H POC Glucose 113 H Lactic Acid Calcium Phosphorus Magnesium AST ALT Lactate Dehydrogenase Total Bilirubin Direct Bilirubin CK-MB (CK-2) C-Reactive Protein NT-Pro-B Natriuret Pep Total Protein Albumin Arterial Blood Glucose Urine WBC (Auto) Urine Creatinine Digoxin 02/13/20 02/13/20 02/13/20 00:39 05:36 12:25 WBC RBC Hgb Hct MCHC RDW MCV MCH Lymph % (Auto) [place] % (Auto) [place] # Eos # Lymph # (Auto) [place] # (Auto) Eos # (Auto) Seg Neutrophils % Seg Neuts % (Manual) Baso # (Auto) Lymphocytes % (Manual) Monocytes % (Manual) Eosinophils % (Manual) Basophils % (Manual) Seg Neutrophils # Seg Neutrophils # Man Lymphocytes # (Manual) Monocytes # (Manual) Eosinophils # (Manual) Nucleated RBC % Basophils # (Manual) PT INR APTT Heparin Anti-Xa Level ABG pH POC ABG pO2 ABG pO2 ABG HCO3 ABG O2 Saturation ABG Base Excess POC ABG pCO2 ABG Hemoglobin ABG Oxyhemoglobin ABG Sodium ABG Chloride ABG Glucose Oxyhemoglobin Sodium Potassium Chloride Carbon Dioxide BUN Creatinine Glucose POC Glucose 129 H 126 H 129 H Lactic Acid Calcium Phosphorus Magnesium AST ALT Lactate Dehydrogenase Total Bilirubin Direct Bilirubin CK-MB (CK-2) C-Reactive Protein NT-Pro-B Natriuret Pep Total Protein Albumin Arterial Blood Glucose Urine WBC (Auto) Urine Creatinine Digoxin 02/13/20 02/14/20 02/14/20 17:59 00:15 05:41 WBC RBC Hgb Hct MCHC RDW MCV MCH Lymph % (Auto) [place] % (Auto) [place] # Eos # Lymph # (Auto) [place] # (Auto) Eos # (Auto) Seg Neutrophils % Seg Neuts % (Manual) Baso # (Auto) Lymphocytes % (Manual) Monocytes % (Manual) Eosinophils % (Manual) Basophils % (Manual) Seg Neutrophils # Seg Neutrophils # Man Lymphocytes # (Manual) Monocytes # (Manual) Eosinophils # (Manual) Nucleated RBC % Basophils # (Manual) PT INR APTT Heparin Anti-Xa Level ABG pH POC ABG pO2 ABG pO2 ABG HCO3 ABG O2 Saturation ABG Base Excess POC ABG pCO2 ABG Hemoglobin ABG Oxyhemoglobin ABG Sodium ABG Chloride ABG Glucose Oxyhemoglobin Sodium Potassium Chloride Carbon Dioxide BUN Creatinine Glucose POC Glucose 153 H 130 H 130 H Lactic Acid Calcium Phosphorus Magnesium AST ALT Lactate Dehydrogenase Total Bilirubin Direct Bilirubin CK-MB (CK-2) C-Reactive Protein NT-Pro-B Natriuret Pep Total Protein Albumin Arterial Blood Glucose Urine WBC (Auto) Urine Creatinine Digoxin 02/14/20 02/15/20 02/15/20 11:32 00:12 05:27 WBC RBC Hgb Hct MCHC RDW MCV MCH Lymph % (Auto) [place] % (Auto) [place] # Eos # Lymph # (Auto) [place] # (Auto) Eos # (Auto) Seg Neutrophils % Seg Neuts % (Manual) Baso # (Auto) Lymphocytes % (Manual) Monocytes % (Manual) Eosinophils % (Manual) Basophils % (Manual) Seg Neutrophils # Seg Neutrophils # Man Lymphocytes # (Manual) Monocytes # (Manual) Eosinophils # (Manual) Nucleated RBC % Basophils # (Manual) PT INR APTT Heparin Anti-Xa Level ABG pH POC ABG pO2 ABG pO2 ABG HCO3 ABG O2 Saturation ABG Base Excess POC ABG pCO2 ABG Hemoglobin ABG Oxyhemoglobin ABG Sodium ABG Chloride ABG Glucose Oxyhemoglobin Sodium Potassium Chloride Carbon Dioxide BUN Creatinine Glucose POC Glucose 157 H 124 H 111 H Lactic Acid Calcium Phosphorus Magnesium AST ALT Lactate Dehydrogenase Total Bilirubin Direct Bilirubin CK-MB (CK-2) C-Reactive Protein NT-Pro-B Natriuret Pep Total Protein Albumin Arterial Blood Glucose Urine WBC (Auto) Urine Creatinine Digoxin 02/15/20 02/15/20 02/15/20 06:59 06:59 11:14 WBC RBC Hgb 10.4 L Hct 33.7 L MCHC 31 L RDW 19.4 H MCV 80 L MCH 24 L Lymph % (Auto) [place] % (Auto) [place] # Eos # Lymph # (Auto) [place] # (Auto) Eos # (Auto) Seg Neutrophils % Seg Neuts % (Manual) Baso # (Auto) Lymphocytes % (Manual) Monocytes % (Manual) Eosinophils % (Manual) Basophils % (Manual) 2.0 H Seg Neutrophils # Seg Neutrophils # Man Lymphocytes # (Manual) Monocytes # (Manual) Eosinophils # (Manual) Nucleated RBC % 1.0 H Basophils # (Manual) 0.2 H PT INR APTT Heparin Anti-Xa Level ABG pH POC ABG pO2 ABG pO2 ABG HCO3 ABG O2 Saturation ABG Base Excess POC ABG pCO2 ABG Hemoglobin ABG Oxyhemoglobin ABG Sodium ABG Chloride ABG Glucose Oxyhemoglobin Sodium 149 H Potassium Chloride 108.4 H Carbon Dioxide 31 H BUN 40 H Creatinine 0.7 L Glucose 150 H POC Glucose 128 H Lactic Acid Calcium Phosphorus Magnesium AST ALT Lactate Dehydrogenase Total Bilirubin Direct Bilirubin CK-MB (CK-2) C-Reactive Protein NT-Pro-B Natriuret Pep Total Protein Albumin Arterial Blood Glucose Urine WBC (Auto) Urine Creatinine Digoxin 02/15/20 02/15/20 02/16/20 17:46 23:50 05:03 WBC RBC Hgb Hct MCHC RDW MCV MCH Lymph % (Auto) [place] % (Auto) [place] # Eos # Lymph # (Auto) [place] # (Auto) Eos # (Auto) Seg Neutrophils % Seg Neuts % (Manual) Baso # (Auto) Lymphocytes % (Manual) Monocytes % (Manual) Eosinophils % (Manual) Basophils % (Manual) Seg Neutrophils # Seg Neutrophils # Man Lymphocytes # (Manual) Monocytes # (Manual) Eosinophils # (Manual) Nucleated RBC % Basophils # (Manual) PT INR APTT Heparin Anti-Xa Level ABG pH POC ABG pO2 ABG pO2 ABG HCO3 ABG O2 Saturation ABG Base Excess POC ABG pCO2 ABG Hemoglobin ABG Oxyhemoglobin ABG Sodium ABG Chloride ABG Glucose Oxyhemoglobin Sodium Potassium Chloride Carbon Dioxide BUN Creatinine Glucose POC Glucose 154 H 135 H 148 H Lactic Acid Calcium Phosphorus Magnesium AST ALT Lactate Dehydrogenase Total Bilirubin Direct Bilirubin CK-MB (CK-2) C-Reactive Protein NT-Pro-B Natriuret Pep Total Protein Albumin Arterial Blood Glucose Urine WBC (Auto) Urine Creatinine Digoxin 02/16/20 02/16/20 02/16/20 07:53 11:28 17:52 WBC RBC Hgb Hct MCHC RDW MCV MCH Lymph % (Auto) [place] % (Auto) [place] # Eos # Lymph # (Auto) [place] # (Auto) Eos # (Auto) Seg Neutrophils % Seg Neuts % (Manual) Baso # (Auto) Lymphocytes % (Manual) Monocytes % (Manual) Eosinophils % (Manual) Basophils % (Manual) Seg Neutrophils # Seg Neutrophils # Man Lymphocytes # (Manual) Monocytes # (Manual) Eosinophils # (Manual) Nucleated RBC % Basophils # (Manual) PT INR APTT Heparin Anti-Xa Level ABG pH POC ABG pO2 ABG pO2 ABG HCO3 ABG O2 Saturation ABG Base Excess POC ABG pCO2 ABG Hemoglobin ABG Oxyhemoglobin ABG Sodium ABG Chloride ABG Glucose Oxyhemoglobin Sodium Potassium Chloride 107.9 H Carbon Dioxide BUN 38 H Creatinine 0.6 L Glucose 151 H POC Glucose 123 H 152 H Lactic Acid Calcium Phosphorus Magnesium AST ALT Lactate Dehydrogenase Total Bilirubin Direct Bilirubin CK-MB (CK-2) C-Reactive Protein NT-Pro-B Natriuret Pep Total Protein Albumin Arterial Blood Glucose Urine WBC (Auto) Urine Creatinine Digoxin 02/16/20 02/17/20 02/17/20 23:49 06:24 11:36 WBC RBC Hgb Hct MCHC RDW MCV MCH Lymph % (Auto) [place] % (Auto) [place] # Eos # Lymph # (Auto) [place] # (Auto) Eos # (Auto) Seg Neutrophils % Seg Neuts % (Manual) Baso # (Auto) Lymphocytes % (Manual) Monocytes % (Manual) Eosinophils % (Manual) Basophils % (Manual) Seg Neutrophils # Seg Neutrophils # Man Lymphocytes # (Manual) Monocytes # (Manual) Eosinophils # (Manual) Nucleated RBC % Basophils # (Manual) PT INR APTT Heparin Anti-Xa Level ABG pH POC ABG pO2 ABG pO2 ABG HCO3 ABG O2 Saturation ABG Base Excess POC ABG pCO2 ABG Hemoglobin ABG Oxyhemoglobin ABG Sodium ABG Chloride ABG Glucose Oxyhemoglobin Sodium Potassium Chloride Carbon Dioxide BUN Creatinine Glucose POC Glucose 156 H 193 H 162 H Lactic Acid Calcium Phosphorus Magnesium AST ALT Lactate Dehydrogenase Total Bilirubin Direct Bilirubin CK-MB (CK-2) C-Reactive Protein NT-Pro-B Natriuret Pep Total Protein Albumin Arterial Blood Glucose Urine WBC (Auto) Urine Creatinine Digoxin 02/17/20 02/17/20 02/18/20 17:55 23:28 05:11 WBC RBC Hgb Hct MCHC RDW MCV MCH Lymph % (Auto) [place] % (Auto) [place] # Eos # Lymph # (Auto) [place] # (Auto) Eos # (Auto) Seg Neutrophils % Seg Neuts % (Manual) Baso # (Auto) Lymphocytes % (Manual) Monocytes % (Manual) Eosinophils % (Manual) Basophils % (Manual) Seg Neutrophils # Seg Neutrophils # Man Lymphocytes # (Manual) Monocytes # (Manual) Eosinophils # (Manual) Nucleated RBC % Basophils # (Manual) PT INR APTT Heparin Anti-Xa Level ABG pH POC ABG pO2 ABG pO2 ABG HCO3 ABG O2 Saturation ABG Base Excess POC ABG pCO2 ABG Hemoglobin ABG Oxyhemoglobin ABG Sodium ABG Chloride ABG Glucose Oxyhemoglobin Sodium Potassium Chloride Carbon Dioxide BUN Creatinine Glucose POC Glucose 165 H 146 H 122 H Lactic Acid Calcium Phosphorus Magnesium AST ALT Lactate Dehydrogenase Total Bilirubin Direct Bilirubin CK-MB (CK-2) C-Reactive Protein NT-Pro-B Natriuret Pep Total Protein Albumin Arterial Blood Glucose Urine WBC (Auto) Urine Creatinine Digoxin 02/18/20 02/18/20 02/19/20 12:24 17:29 00:01 WBC RBC Hgb Hct MCHC RDW MCV MCH Lymph % (Auto) [place] % (Auto) [place] # Eos # Lymph # (Auto) [place] # (Auto) Eos # (Auto) Seg Neutrophils % Seg Neuts % (Manual) Baso # (Auto) Lymphocytes % (Manual) Monocytes % (Manual) Eosinophils % (Manual) Basophils % (Manual) Seg Neutrophils # Seg Neutrophils # Man Lymphocytes # (Manual) Monocytes # (Manual) Eosinophils # (Manual) Nucleated RBC % Basophils # (Manual) PT INR APTT Heparin Anti-Xa Level ABG pH POC ABG pO2 ABG pO2 ABG HCO3 ABG O2 Saturation ABG Base Excess POC ABG pCO2 ABG Hemoglobin ABG Oxyhemoglobin ABG Sodium ABG Chloride ABG Glucose Oxyhemoglobin Sodium Potassium Chloride Carbon Dioxide BUN Creatinine Glucose POC Glucose 162 H 136 H 145 H Lactic Acid Calcium Phosphorus Magnesium AST ALT Lactate Dehydrogenase Total Bilirubin Direct Bilirubin CK-MB (CK-2) C-Reactive Protein NT-Pro-B Natriuret Pep Total Protein Albumin Arterial Blood Glucose Urine WBC (Auto) Urine Creatinine Digoxin 02/19/20 02/19/20 02/19/20 05:53 11:44 17:32 WBC RBC Hgb Hct MCHC RDW MCV MCH Lymph % (Auto) [place] % (Auto) [place] # Eos # Lymph # (Auto) [place] # (Auto) Eos # (Auto) Seg Neutrophils % Seg Neuts % (Manual) Baso # (Auto) Lymphocytes % (Manual) Monocytes % (Manual) Eosinophils % (Manual) Basophils % (Manual) Seg Neutrophils # Seg Neutrophils # Man Lymphocytes # (Manual) Monocytes # (Manual) Eosinophils # (Manual) Nucleated RBC % Basophils # (Manual) PT INR APTT Heparin Anti-Xa Level ABG pH POC ABG pO2 ABG pO2 ABG HCO3 ABG O2 Saturation ABG Base Excess POC ABG pCO2 ABG Hemoglobin ABG Oxyhemoglobin ABG Sodium ABG Chloride ABG Glucose Oxyhemoglobin Sodium Potassium Chloride Carbon Dioxide BUN Creatinine Glucose POC Glucose 116 H 120 H 154 H Lactic Acid Calcium Phosphorus Magnesium AST ALT Lactate Dehydrogenase Total Bilirubin Direct Bilirubin CK-MB (CK-2) C-Reactive Protein NT-Pro-B Natriuret Pep Total Protein Albumin Arterial Blood Glucose Urine WBC (Auto) Urine Creatinine Digoxin 02/19/20 02/20/20 02/20/20 23:43 00:24 00:24 WBC RBC Hgb 9.4 L Hct 30.0 L MCHC 31 L RDW 20.4 H MCV 79 L MCH 25 L Lymph % (Auto) [place] % (Auto) 8.5 H [place] # Eos # Lymph # (Auto) [place] # (Auto) Eos # (Auto) Seg Neutrophils % Seg Neuts % (Manual) Baso # (Auto) Lymphocytes % (Manual) Monocytes % (Manual) Eosinophils % (Manual) Basophils % (Manual) Seg Neutrophils # Seg Neutrophils # Man Lymphocytes # (Manual) Monocytes # (Manual) Eosinophils # (Manual) Nucleated RBC % Basophils # (Manual) PT INR APTT Heparin Anti-Xa Level ABG pH POC ABG pO2 ABG pO2 ABG HCO3 ABG O2 Saturation ABG Base Excess POC ABG pCO2 ABG Hemoglobin ABG Oxyhemoglobin ABG Sodium ABG Chloride ABG Glucose Oxyhemoglobin Sodium 147 H Potassium 3.4 L Chloride Carbon Dioxide 31 H BUN 34 H Creatinine 0.5 L Glucose 135 H POC Glucose 122 H Lactic Acid Calcium Phosphorus Magnesium AST ALT Lactate Dehydrogenase Total Bilirubin Direct Bilirubin CK-MB (CK-2) C-Reactive Protein NT-Pro-B Natriuret Pep Total Protein Albumin Arterial Blood Glucose Urine WBC (Auto) Urine Creatinine Digoxin 02/20/20 02/20/20 02/20/20 06:07 06:45 12:03 WBC RBC Hgb Hct MCHC RDW MCV MCH Lymph % (Auto) [place] % (Auto) [place] # Eos # Lymph # (Auto) [place] # (Auto) Eos # (Auto) Seg Neutrophils % Seg Neuts % (Manual) Baso # (Auto) Lymphocytes % (Manual) Monocytes % (Manual) Eosinophils % (Manual) Basophils % (Manual) Seg Neutrophils # Seg Neutrophils # Man Lymphocytes # (Manual) Monocytes # (Manual) Eosinophils # (Manual) Nucleated RBC % Basophils # (Manual) PT INR APTT Heparin Anti-Xa Level ABG pH 7.461 H POC ABG pO2 ABG pO2 ABG HCO3 33.3 H ABG O2 Saturation ABG Base Excess 8.4 H POC ABG pCO2 ABG Hemoglobin 10.0 L ABG Oxyhemoglobin ABG Sodium ABG Chloride ABG Glucose Oxyhemoglobin 94.1 L Sodium Potassium Chloride Carbon Dioxide BUN Creatinine Glucose POC Glucose 109 H 128 H Lactic Acid Calcium Phosphorus Magnesium AST ALT Lactate Dehydrogenase Total Bilirubin Direct Bilirubin CK-MB (CK-2) C-Reactive Protein NT-Pro-B Natriuret Pep Total Protein Albumin Arterial Blood Glucose Urine WBC (Auto) Urine Creatinine Digoxin 02/20/20 02/20/20 02/21/20 18:02 23:55 05:42 WBC RBC Hgb Hct MCHC RDW MCV MCH Lymph % (Auto) [place] % (Auto) [place] # Eos # Lymph # (Auto) [place] # (Auto) Eos # (Auto) Seg Neutrophils % Seg Neuts % (Manual) Baso # (Auto) Lymphocytes % (Manual) Monocytes % (Manual) Eosinophils % (Manual) Basophils % (Manual) Seg Neutrophils # Seg Neutrophils # Man Lymphocytes # (Manual) Monocytes # (Manual) Eosinophils # (Manual) Nucleated RBC % Basophils # (Manual) PT INR APTT Heparin Anti-Xa Level ABG pH POC ABG pO2 ABG pO2 ABG HCO3 ABG O2 Saturation ABG Base Excess POC ABG pCO2 ABG Hemoglobin ABG Oxyhemoglobin ABG Sodium ABG Chloride ABG Glucose Oxyhemoglobin Sodium Potassium Chloride Carbon Dioxide BUN Creatinine Glucose POC Glucose 118 H 125 H 127 H Lactic Acid Calcium Phosphorus Magnesium AST ALT Lactate Dehydrogenase Total Bilirubin Direct Bilirubin CK-MB (CK-2) C-Reactive Protein NT-Pro-B Natriuret Pep Total Protein Albumin Arterial Blood Glucose Urine WBC (Auto) Urine Creatinine Digoxin 02/21/20 02/21/20 02/21/20 12:10 17:35 23:40 WBC RBC Hgb Hct MCHC RDW MCV MCH Lymph % (Auto) [place] % (Auto) [place] # Eos # Lymph # (Auto) [place] # (Auto) Eos # (Auto) Seg Neutrophils % Seg Neuts % (Manual) Baso # (Auto) Lymphocytes % (Manual) Monocytes % (Manual) Eosinophils % (Manual) Basophils % (Manual) Seg Neutrophils # Seg Neutrophils # Man Lymphocytes # (Manual) Monocytes # (Manual) Eosinophils # (Manual) Nucleated RBC % Basophils # (Manual) PT INR APTT Heparin Anti-Xa Level ABG pH POC ABG pO2 ABG pO2 ABG HCO3 ABG O2 Saturation ABG Base Excess POC ABG pCO2 ABG Hemoglobin ABG Oxyhemoglobin ABG Sodium ABG Chloride ABG Glucose Oxyhemoglobin Sodium Potassium Chloride Carbon Dioxide BUN Creatinine Glucose POC Glucose 128 H 113 H 125 H Lactic Acid Calcium Phosphorus Magnesium AST ALT Lactate Dehydrogenase Total Bilirubin Direct Bilirubin CK-MB (CK-2) C-Reactive Protein NT-Pro-B Natriuret Pep Total Protein Albumin Arterial Blood Glucose Urine WBC (Auto) Urine Creatinine Digoxin 02/22/20 02/22/20 02/22/20 05:57 08:06 08:06 WBC RBC Hgb 10.8 L Hct 35.2 L MCHC 31 L RDW 21.8 H MCV 80 L MCH 25 L Lymph % (Auto) [place] % (Auto) [place] # Eos # Lymph # (Auto) [place] # (Auto) Eos # (Auto) Seg Neutrophils % 71.5 H Seg Neuts % (Manual) Baso # (Auto) Lymphocytes % (Manual) Monocytes % (Manual) Eosinophils % (Manual) Basophils % (Manual) Seg Neutrophils # Seg Neutrophils # Man Lymphocytes # (Manual) Monocytes # (Manual) Eosinophils # (Manual) Nucleated RBC % Basophils # (Manual) PT INR APTT Heparin Anti-Xa Level ABG pH POC ABG pO2 ABG pO2 ABG HCO3 ABG O2 Saturation ABG Base Excess POC ABG pCO2 ABG Hemoglobin ABG Oxyhemoglobin ABG Sodium ABG Chloride ABG Glucose Oxyhemoglobin Sodium 146 H Potassium Chloride Carbon Dioxide 34 H BUN 21 H Creatinine 0.4 L Glucose 149 H POC Glucose 138 H Lactic Acid Calcium Phosphorus Magnesium AST ALT Lactate Dehydrogenase Total Bilirubin Direct Bilirubin CK-MB (CK-2) C-Reactive Protein NT-Pro-B Natriuret Pep Total Protein Albumin Arterial Blood Glucose Urine WBC (Auto) Urine Creatinine Digoxin 02/22/20 02/22/20 02/22/20 11:47 17:11 23:25 WBC RBC Hgb Hct MCHC RDW MCV MCH Lymph % (Auto) [place] % (Auto) [place] # Eos # Lymph # (Auto) [place] # (Auto) Eos # (Auto) Seg Neutrophils % Seg Neuts % (Manual) Baso # (Auto) Lymphocytes % (Manual) Monocytes % (Manual) Eosinophils % (Manual) Basophils % (Manual) Seg Neutrophils # Seg Neutrophils # Man Lymphocytes # (Manual) Monocytes # (Manual) Eosinophils # (Manual) Nucleated RBC % Basophils # (Manual) PT INR APTT Heparin Anti-Xa Level ABG pH POC ABG pO2 ABG pO2 ABG HCO3 ABG O2 Saturation ABG Base Excess POC ABG pCO2 ABG Hemoglobin ABG Oxyhemoglobin ABG Sodium ABG Chloride ABG Glucose Oxyhemoglobin Sodium Potassium Chloride Carbon Dioxide BUN Creatinine Glucose POC Glucose 149 H 144 H 142 H Lactic Acid Calcium Phosphorus Magnesium AST ALT Lactate Dehydrogenase Total Bilirubin Direct Bilirubin CK-MB (CK-2) C-Reactive Protein NT-Pro-B Natriuret Pep Total Protein Albumin Arterial Blood Glucose Urine WBC (Auto) Urine Creatinine Digoxin 02/23/20 02/23/20 02/23/20 05:22 11:37 18:14 WBC RBC Hgb Hct MCHC RDW MCV MCH Lymph % (Auto) [place] % (Auto) [place] # Eos # Lymph # (Auto) [place] # (Auto) Eos # (Auto) Seg Neutrophils % Seg Neuts % (Manual) Baso # (Auto) Lymphocytes % (Manual) Monocytes % (Manual) Eosinophils % (Manual) Basophils % (Manual) Seg Neutrophils # Seg Neutrophils # Man Lymphocytes # (Manual) Monocytes # (Manual) Eosinophils # (Manual) Nucleated RBC % Basophils # (Manual) PT INR APTT Heparin Anti-Xa Level ABG pH POC ABG pO2 ABG pO2 ABG HCO3 ABG O2 Saturation ABG Base Excess POC ABG pCO2 ABG Hemoglobin ABG Oxyhemoglobin ABG Sodium ABG Chloride ABG Glucose Oxyhemoglobin Sodium Potassium Chloride Carbon Dioxide BUN Creatinine Glucose POC Glucose 144 H 113 H 127 H Lactic Acid Calcium Phosphorus Magnesium AST ALT Lactate Dehydrogenase Total Bilirubin Direct Bilirubin CK-MB (CK-2) C-Reactive Protein NT-Pro-B Natriuret Pep Total Protein Albumin Arterial Blood Glucose Urine WBC (Auto) Urine Creatinine Digoxin 02/23/20 02/24/20 02/24/20 23:45 05:50 11:24 WBC RBC Hgb Hct MCHC RDW MCV MCH Lymph % (Auto) [place] % (Auto) [place] # Eos # Lymph # (Auto) [place] # (Auto) Eos # (Auto) Seg Neutrophils % Seg Neuts % (Manual) Baso # (Auto) Lymphocytes % (Manual) Monocytes % (Manual) Eosinophils % (Manual) Basophils % (Manual) Seg Neutrophils # Seg Neutrophils # Man Lymphocytes # (Manual) Monocytes # (Manual) Eosinophils # (Manual) Nucleated RBC % Basophils # (Manual) PT INR APTT Heparin Anti-Xa Level ABG pH POC ABG pO2 ABG pO2 ABG HCO3 ABG O2 Saturation ABG Base Excess POC ABG pCO2 ABG Hemoglobin ABG Oxyhemoglobin ABG Sodium ABG Chloride ABG Glucose Oxyhemoglobin Sodium Potassium Chloride Carbon Dioxide BUN Creatinine Glucose POC Glucose 123 H 117 H 126 H Lactic Acid Calcium Phosphorus Magnesium AST ALT Lactate Dehydrogenase Total Bilirubin Direct Bilirubin CK-MB (CK-2) C-Reactive Protein NT-Pro-B Natriuret Pep Total Protein Albumin Arterial Blood Glucose Urine WBC (Auto) Urine Creatinine Digoxin 02/24/20 02/24/20 02/25/20 18:35 23:27 05:20 WBC RBC Hgb Hct MCHC RDW MCV MCH Lymph % (Auto) [place] % (Auto) [place] # Eos # Lymph # (Auto) [place] # (Auto) Eos # (Auto) Seg Neutrophils % Seg Neuts % (Manual) Baso # (Auto) Lymphocytes % (Manual) Monocytes % (Manual) Eosinophils % (Manual) Basophils % (Manual) Seg Neutrophils # Seg Neutrophils # Man Lymphocytes # (Manual) Monocytes # (Manual) Eosinophils # (Manual) Nucleated RBC % Basophils # (Manual) PT INR APTT Heparin Anti-Xa Level ABG pH POC ABG pO2 ABG pO2 ABG HCO3 ABG O2 Saturation ABG Base Excess POC ABG pCO2 ABG Hemoglobin ABG Oxyhemoglobin ABG Sodium ABG Chloride ABG Glucose Oxyhemoglobin Sodium Potassium Chloride Carbon Dioxide BUN Creatinine Glucose POC Glucose 121 H 127 H 133 H Lactic Acid Calcium Phosphorus Magnesium AST ALT Lactate Dehydrogenase Total Bilirubin Direct Bilirubin CK-MB (CK-2) C-Reactive Protein NT-Pro-B Natriuret Pep Total Protein Albumin Arterial Blood Glucose Urine WBC (Auto) Urine Creatinine Digoxin 02/25/20 02/25/20 02/25/20 12:08 17:26 23:33 WBC RBC Hgb Hct MCHC RDW MCV MCH Lymph % (Auto) [place] % (Auto) [place] # Eos # Lymph # (Auto) [place] # (Auto) Eos # (Auto) Seg Neutrophils % Seg Neuts % (Manual) Baso # (Auto) Lymphocytes % (Manual) Monocytes % (Manual) Eosinophils % (Manual) Basophils % (Manual) Seg Neutrophils # Seg Neutrophils # Man Lymphocytes # (Manual) Monocytes # (Manual) Eosinophils # (Manual) Nucleated RBC % Basophils # (Manual) PT INR APTT Heparin Anti-Xa Level ABG pH POC ABG pO2 ABG pO2 ABG HCO3 ABG O2 Saturation ABG Base Excess POC ABG pCO2 ABG Hemoglobin ABG Oxyhemoglobin ABG Sodium ABG Chloride ABG Glucose Oxyhemoglobin Sodium Potassium Chloride Carbon Dioxide BUN Creatinine Glucose POC Glucose 109 H 120 H 120 H Lactic Acid Calcium Phosphorus Magnesium AST ALT Lactate Dehydrogenase Total Bilirubin Direct Bilirubin CK-MB (CK-2) C-Reactive Protein NT-Pro-B Natriuret Pep Total Protein Albumin Arterial Blood Glucose Urine WBC (Auto) Urine Creatinine Digoxin 02/26/20 02/26/20 02/27/20 05:33 07:50 12:13 WBC RBC Hgb Hct MCHC RDW MCV MCH Lymph % (Auto) [place] % (Auto) [place] # Eos # Lymph # (Auto) [place] # (Auto) Eos # (Auto) Seg Neutrophils % Seg Neuts % (Manual) Baso # (Auto) Lymphocytes % (Manual) Monocytes % (Manual) Eosinophils % (Manual) Basophils % (Manual) Seg Neutrophils # Seg Neutrophils # Man Lymphocytes # (Manual) Monocytes # (Manual) Eosinophils # (Manual) Nucleated RBC % Basophils # (Manual) PT INR APTT Heparin Anti-Xa Level ABG pH POC ABG pO2 ABG pO2 ABG HCO3 ABG O2 Saturation ABG Base Excess POC ABG pCO2 ABG Hemoglobin ABG Oxyhemoglobin ABG Sodium ABG Chloride ABG Glucose Oxyhemoglobin Sodium Potassium Chloride Carbon Dioxide BUN Creatinine Glucose POC Glucose 106 H 130 H Lactic Acid Calcium Phosphorus Magnesium AST ALT Lactate Dehydrogenase Total Bilirubin Direct Bilirubin CK-MB (CK-2) C-Reactive Protein NT-Pro-B Natriuret Pep Total Protein Albumin Arterial Blood Glucose Urine WBC (Auto) > 182.0 H Urine Creatinine Digoxin 02/27/20 02/27/20 02/28/20 18:20 23:33 05:01 WBC RBC Hgb Hct MCHC RDW MCV MCH Lymph % (Auto) [place] % (Auto) [place] # Eos # Lymph # (Auto) [place] # (Auto) Eos # (Auto) Seg Neutrophils % Seg Neuts % (Manual) Baso # (Auto) Lymphocytes % (Manual) Monocytes % (Manual) Eosinophils % (Manual) Basophils % (Manual) Seg Neutrophils # Seg Neutrophils # Man Lymphocytes # (Manual) Monocytes # (Manual) Eosinophils # (Manual) Nucleated RBC % Basophils # (Manual) PT INR APTT Heparin Anti-Xa Level ABG pH POC ABG pO2 ABG pO2 ABG HCO3 ABG O2 Saturation ABG Base Excess POC ABG pCO2 ABG Hemoglobin ABG Oxyhemoglobin ABG Sodium ABG Chloride ABG Glucose Oxyhemoglobin Sodium Potassium Chloride Carbon Dioxide BUN Creatinine Glucose POC Glucose 109 H 124 H 134 H Lactic Acid Calcium Phosphorus Magnesium AST ALT Lactate Dehydrogenase Total Bilirubin Direct Bilirubin CK-MB (CK-2) C-Reactive Protein NT-Pro-B Natriuret Pep Total Protein Albumin Arterial Blood Glucose Urine WBC (Auto) Urine Creatinine Digoxin 02/28/20 02/28/20 02/28/20 11:54 18:16 23:03 WBC RBC Hgb Hct MCHC RDW MCV MCH Lymph % (Auto) [place] % (Auto) [place] # Eos # Lymph # (Auto) [place] # (Auto) Eos # (Auto) Seg Neutrophils % Seg Neuts % (Manual) Baso # (Auto) Lymphocytes % (Manual) Monocytes % (Manual) Eosinophils % (Manual) Basophils % (Manual) Seg Neutrophils # Seg Neutrophils # Man Lymphocytes # (Manual) Monocytes # (Manual) Eosinophils # (Manual) Nucleated RBC % Basophils # (Manual) PT INR APTT Heparin Anti-Xa Level ABG pH POC ABG pO2 ABG pO2 ABG HCO3 ABG O2 Saturation ABG Base Excess POC ABG pCO2 ABG Hemoglobin ABG Oxyhemoglobin ABG Sodium ABG Chloride ABG Glucose Oxyhemoglobin Sodium Potassium Chloride Carbon Dioxide BUN Creatinine Glucose POC Glucose 133 H 134 H 146 H Lactic Acid Calcium Phosphorus Magnesium AST ALT Lactate Dehydrogenase Total Bilirubin Direct Bilirubin CK-MB (CK-2) C-Reactive Protein NT-Pro-B Natriuret Pep Total Protein Albumin Arterial Blood Glucose Urine WBC (Auto) Urine Creatinine Digoxin 02/29/20 02/29/20 02/29/20 05:24 11:34 17:12 WBC RBC Hgb Hct MCHC RDW MCV MCH Lymph % (Auto) [place] % (Auto) [place] # Eos # Lymph # (Auto) [place] # (Auto) Eos # (Auto) Seg Neutrophils % Seg Neuts % (Manual) Baso # (Auto) Lymphocytes % (Manual) Monocytes % (Manual) Eosinophils % (Manual) Basophils % (Manual) Seg Neutrophils # Seg Neutrophils # Man Lymphocytes # (Manual) Monocytes # (Manual) Eosinophils # (Manual) Nucleated RBC % Basophils # (Manual) PT INR APTT Heparin Anti-Xa Level ABG pH POC ABG pO2 ABG pO2 ABG HCO3 ABG O2 Saturation ABG Base Excess POC ABG pCO2 ABG Hemoglobin ABG Oxyhemoglobin ABG Sodium ABG Chloride ABG Glucose Oxyhemoglobin Sodium Potassium Chloride Carbon Dioxide BUN Creatinine Glucose POC Glucose 139 H 141 H 157 H Lactic Acid Calcium Phosphorus Magnesium AST ALT Lactate Dehydrogenase Total Bilirubin Direct Bilirubin CK-MB (CK-2) C-Reactive Protein NT-Pro-B Natriuret Pep Total Protein Albumin Arterial Blood Glucose Urine WBC (Auto) Urine Creatinine Digoxin 02/29/20 03/01/20 03/01/20 23:35 06:00 11:53 WBC RBC Hgb Hct MCHC RDW MCV MCH Lymph % (Auto) [place] % (Auto) [place] # Eos # Lymph # (Auto) [place] # (Auto) Eos # (Auto) Seg Neutrophils % Seg Neuts % (Manual) Baso # (Auto) Lymphocytes % (Manual) Monocytes % (Manual) Eosinophils % (Manual) Basophils % (Manual) Seg Neutrophils # Seg Neutrophils # Man Lymphocytes # (Manual) Monocytes # (Manual) Eosinophils # (Manual) Nucleated RBC % Basophils # (Manual) PT INR APTT Heparin Anti-Xa Level ABG pH POC ABG pO2 ABG pO2 ABG HCO3 ABG O2 Saturation ABG Base Excess POC ABG pCO2 ABG Hemoglobin ABG Oxyhemoglobin ABG Sodium ABG Chloride ABG Glucose Oxyhemoglobin Sodium Potassium Chloride Carbon Dioxide BUN Creatinine Glucose POC Glucose 120 H 132 H 136 H Lactic Acid Calcium Phosphorus Magnesium AST ALT Lactate Dehydrogenase Total Bilirubin Direct Bilirubin CK-MB (CK-2) C-Reactive Protein NT-Pro-B Natriuret Pep Total Protein Albumin Arterial Blood Glucose Urine WBC (Auto) Urine Creatinine Digoxin 03/01/20 03/01/20 03/02/20 17:36 23:16 05:12 WBC RBC Hgb Hct MCHC RDW MCV MCH Lymph % (Auto) [place] % (Auto) [place] # Eos # Lymph # (Auto) [place] # (Auto) Eos # (Auto) Seg Neutrophils % Seg Neuts % (Manual) Baso # (Auto) Lymphocytes % (Manual) Monocytes % (Manual) Eosinophils % (Manual) Basophils % (Manual) Seg Neutrophils # Seg Neutrophils # Man Lymphocytes # (Manual) Monocytes # (Manual) Eosinophils # (Manual) Nucleated RBC % Basophils # (Manual) PT INR APTT Heparin Anti-Xa Level ABG pH POC ABG pO2 ABG pO2 ABG HCO3 ABG O2 Saturation ABG Base Excess POC ABG pCO2 ABG Hemoglobin ABG Oxyhemoglobin ABG Sodium ABG Chloride ABG Glucose Oxyhemoglobin Sodium Potassium Chloride Carbon Dioxide BUN Creatinine Glucose POC Glucose 171 H 164 H 176 H Lactic Acid Calcium Phosphorus Magnesium AST ALT Lactate Dehydrogenase Total Bilirubin Direct Bilirubin CK-MB (CK-2) C-Reactive Protein NT-Pro-B Natriuret Pep Total Protein Albumin Arterial Blood Glucose Urine WBC (Auto) Urine Creatinine Digoxin 03/02/20 03/02/20 03/03/20 11:42 18:01 00:06 WBC RBC Hgb Hct MCHC RDW MCV MCH Lymph % (Auto) [place] % (Auto) [place] # Eos # Lymph # (Auto) [place] # (Auto) Eos # (Auto) Seg Neutrophils % Seg Neuts % (Manual) Baso # (Auto) Lymphocytes % (Manual) Monocytes % (Manual) Eosinophils % (Manual) Basophils % (Manual) Seg Neutrophils # Seg Neutrophils # Man Lymphocytes # (Manual) Monocytes # (Manual) Eosinophils # (Manual) Nucleated RBC % Basophils # (Manual) PT INR APTT Heparin Anti-Xa Level ABG pH POC ABG pO2 ABG pO2 ABG HCO3 ABG O2 Saturation ABG Base Excess POC ABG pCO2 ABG Hemoglobin ABG Oxyhemoglobin ABG Sodium ABG Chloride ABG Glucose Oxyhemoglobin Sodium Potassium Chloride Carbon Dioxide BUN Creatinine Glucose POC Glucose 150 H 156 H 156 H Lactic Acid Calcium Phosphorus Magnesium AST ALT Lactate Dehydrogenase Total Bilirubin Direct Bilirubin CK-MB (CK-2) C-Reactive Protein NT-Pro-B Natriuret Pep Total Protein Albumin Arterial Blood Glucose Urine WBC (Auto) Urine Creatinine Digoxin 03/03/20 03/03/20 03/03/20 03:31 11:20 16:55 WBC RBC Hgb Hct MCHC RDW MCV MCH Lymph % (Auto) [place] % (Auto) [place] # Eos # Lymph # (Auto) [place] # (Auto) Eos # (Auto) Seg Neutrophils % Seg Neuts % (Manual) Baso # (Auto) Lymphocytes % (Manual) Monocytes % (Manual) Eosinophils % (Manual) Basophils % (Manual) Seg Neutrophils # Seg Neutrophils # Man Lymphocytes # (Manual) Monocytes # (Manual) Eosinophils # (Manual) Nucleated RBC % Basophils # (Manual) PT INR APTT Heparin Anti-Xa Level ABG pH POC ABG pO2 ABG pO2 ABG HCO3 ABG O2 Saturation ABG Base Excess POC ABG pCO2 ABG Hemoglobin ABG Oxyhemoglobin ABG Sodium ABG Chloride ABG Glucose Oxyhemoglobin Sodium Potassium Chloride Carbon Dioxide BUN Creatinine Glucose POC Glucose 164 H 125 H 211 H Lactic Acid Calcium Phosphorus Magnesium AST ALT Lactate Dehydrogenase Total Bilirubin Direct Bilirubin CK-MB (CK-2) C-Reactive Protein NT-Pro-B Natriuret Pep Total Protein Albumin Arterial Blood Glucose Urine WBC (Auto) Urine Creatinine Digoxin 03/04/20 03/04/20 03/04/20 00:29 05:20 12:09 WBC RBC Hgb Hct MCHC RDW MCV MCH Lymph % (Auto) [place] % (Auto) [place] # Eos # Lymph # (Auto) [place] # (Auto) Eos # (Auto) Seg Neutrophils % Seg Neuts % (Manual) Baso # (Auto) Lymphocytes % (Manual) Monocytes % (Manual) Eosinophils % (Manual) Basophils % (Manual) Seg Neutrophils # Seg Neutrophils # Man Lymphocytes # (Manual) Monocytes # (Manual) Eosinophils # (Manual) Nucleated RBC % Basophils # (Manual) PT INR APTT Heparin Anti-Xa Level ABG pH POC ABG pO2 ABG pO2 ABG HCO3 ABG O2 Saturation ABG Base Excess POC ABG pCO2 ABG Hemoglobin ABG Oxyhemoglobin ABG Sodium ABG Chloride ABG Glucose Oxyhemoglobin Sodium Potassium Chloride Carbon Dioxide BUN Creatinine Glucose POC Glucose 169 H 154 H 197 H Lactic Acid Calcium Phosphorus Magnesium AST ALT Lactate Dehydrogenase Total Bilirubin Direct Bilirubin CK-MB (CK-2) C-Reactive Protein NT-Pro-B Natriuret Pep Total Protein Albumin Arterial Blood Glucose Urine WBC (Auto) Urine Creatinine Digoxin 03/04/20 03/04/20 03/04/20 18:00 20:38 20:38 WBC RBC Hgb 10.1 L Hct 32.7 L MCHC 31 L RDW 24.7 H MCV 79 L MCH 24 L Lymph % (Auto) [place] % (Auto) 8.9 H [place] # Eos # Lymph # (Auto) [place] # (Auto) Eos # (Auto) Seg Neutrophils % Seg Neuts % (Manual) Baso # (Auto) Lymphocytes % (Manual) Monocytes % (Manual) Eosinophils % (Manual) Basophils % (Manual) Seg Neutrophils # Seg Neutrophils # Man Lymphocytes # (Manual) Monocytes # (Manual) Eosinophils # (Manual) Nucleated RBC % Basophils # (Manual) PT INR APTT Heparin Anti-Xa Level ABG pH POC ABG pO2 ABG pO2 ABG HCO3 ABG O2 Saturation ABG Base Excess POC ABG pCO2 ABG Hemoglobin ABG Oxyhemoglobin ABG Sodium ABG Chloride ABG Glucose Oxyhemoglobin Sodium 136 L Potassium Chloride Carbon Dioxide BUN 25 H Creatinine 0.5 L Glucose 148 H POC Glucose 146 H Lactic Acid Calcium Phosphorus Magnesium AST ALT Lactate Dehydrogenase Total Bilirubin Direct Bilirubin CK-MB (CK-2) C-Reactive Protein NT-Pro-B Natriuret Pep Total Protein Albumin Arterial Blood Glucose Urine WBC (Auto) Urine Creatinine Digoxin 03/04/20 03/05/20 03/05/20 23:17 05:44 11:32 WBC RBC Hgb Hct MCHC RDW MCV MCH Lymph % (Auto) [place] % (Auto) [place] # Eos # Lymph # (Auto) [place] # (Auto) Eos # (Auto) Seg Neutrophils % Seg Neuts % (Manual) Baso # (Auto) Lymphocytes % (Manual) Monocytes % (Manual) Eosinophils % (Manual) Basophils % (Manual) Seg Neutrophils # Seg Neutrophils # Man Lymphocytes # (Manual) Monocytes # (Manual) Eosinophils # (Manual) Nucleated RBC % Basophils # (Manual) PT INR APTT Heparin Anti-Xa Level ABG pH POC ABG pO2 ABG pO2 ABG HCO3 ABG O2 Saturation ABG Base Excess POC ABG pCO2 ABG Hemoglobin ABG Oxyhemoglobin ABG Sodium ABG Chloride ABG Glucose Oxyhemoglobin Sodium Potassium Chloride Carbon Dioxide BUN Creatinine Glucose POC Glucose 139 H 155 H 124 H Lactic Acid Calcium Phosphorus Magnesium AST ALT Lactate Dehydrogenase Total Bilirubin Direct Bilirubin CK-MB (CK-2) C-Reactive Protein NT-Pro-B Natriuret Pep Total Protein Albumin Arterial Blood Glucose Urine WBC (Auto) Urine Creatinine Digoxin 03/05/20 03/05/20 03/06/20 17:45 23:18 12:16 WBC RBC Hgb Hct MCHC RDW MCV MCH Lymph % (Auto) [place] % (Auto) [place] # Eos # Lymph # (Auto) [place] # (Auto) Eos # (Auto) Seg Neutrophils % Seg Neuts % (Manual) Baso # (Auto) Lymphocytes % (Manual) Monocytes % (Manual) Eosinophils % (Manual) Basophils % (Manual) Seg Neutrophils # Seg Neutrophils # Man Lymphocytes # (Manual) Monocytes # (Manual) Eosinophils # (Manual) Nucleated RBC % Basophils # (Manual) PT INR APTT Heparin Anti-Xa Level ABG pH POC ABG pO2 ABG pO2 ABG HCO3 ABG O2 Saturation ABG Base Excess POC ABG pCO2 ABG Hemoglobin ABG Oxyhemoglobin ABG Sodium ABG Chloride ABG Glucose Oxyhemoglobin Sodium Potassium Chloride Carbon Dioxide BUN Creatinine Glucose POC Glucose 171 H 114 H 155 H Lactic Acid Calcium Phosphorus Magnesium AST ALT Lactate Dehydrogenase Total Bilirubin Direct Bilirubin CK-MB (CK-2) C-Reactive Protein NT-Pro-B Natriuret Pep Total Protein Albumin Arterial Blood Glucose Urine WBC (Auto) Urine Creatinine Digoxin 03/06/20 03/06/20 03/07/20 17:27 23:48 06:02 WBC RBC Hgb Hct MCHC RDW MCV MCH Lymph % (Auto) [place] % (Auto) [place] # Eos # Lymph # (Auto) [place] # (Auto) Eos # (Auto) Seg Neutrophils % Seg Neuts % (Manual) Baso # (Auto) Lymphocytes % (Manual) Monocytes % (Manual) Eosinophils % (Manual) Basophils % (Manual) Seg Neutrophils # Seg Neutrophils # Man Lymphocytes # (Manual) Monocytes # (Manual) Eosinophils # (Manual) Nucleated RBC % Basophils # (Manual) PT INR APTT Heparin Anti-Xa Level ABG pH POC ABG pO2 ABG pO2 ABG HCO3 ABG O2 Saturation ABG Base Excess POC ABG pCO2 ABG Hemoglobin ABG Oxyhemoglobin ABG Sodium ABG Chloride ABG Glucose Oxyhemoglobin Sodium Potassium Chloride Carbon Dioxide BUN Creatinine Glucose POC Glucose 116 H 142 H 161 H Lactic Acid Calcium Phosphorus Magnesium AST ALT Lactate Dehydrogenase Total Bilirubin Direct Bilirubin CK-MB (CK-2) C-Reactive Protein NT-Pro-B Natriuret Pep Total Protein Albumin Arterial Blood Glucose Urine WBC (Auto) Urine Creatinine Digoxin 03/07/20 03/08/20 03/08/20 11:36 05:18 11:51 WBC RBC Hgb Hct MCHC RDW MCV MCH Lymph % (Auto) [place] % (Auto) [place] # Eos # Lymph # (Auto) [place] # (Auto) Eos # (Auto) Seg Neutrophils % Seg Neuts % (Manual) Baso # (Auto) Lymphocytes % (Manual) Monocytes % (Manual) Eosinophils % (Manual) Basophils % (Manual) Seg Neutrophils # Seg Neutrophils # Man Lymphocytes # (Manual) Monocytes # (Manual) Eosinophils # (Manual) Nucleated RBC % Basophils # (Manual) PT INR APTT Heparin Anti-Xa Level ABG pH POC ABG pO2 ABG pO2 ABG HCO3 ABG O2 Saturation ABG Base Excess POC ABG pCO2 ABG Hemoglobin ABG Oxyhemoglobin ABG Sodium ABG Chloride ABG Glucose Oxyhemoglobin Sodium Potassium Chloride Carbon Dioxide BUN Creatinine Glucose POC Glucose 127 H 142 H 135 H Lactic Acid Calcium Phosphorus Magnesium AST ALT Lactate Dehydrogenase Total Bilirubin Direct Bilirubin CK-MB (CK-2) C-Reactive Protein NT-Pro-B Natriuret Pep Total Protein Albumin Arterial Blood Glucose Urine WBC (Auto) Urine Creatinine Digoxin 03/08/20 03/08/20 03/09/20 18:14 23:45 05:36 WBC RBC Hgb Hct MCHC RDW MCV MCH Lymph % (Auto) [place] % (Auto) [place] # Eos # Lymph # (Auto) [place] # (Auto) Eos # (Auto) Seg Neutrophils % Seg Neuts % (Manual) Baso # (Auto) Lymphocytes % (Manual) Monocytes % (Manual) Eosinophils % (Manual) Basophils % (Manual) Seg Neutrophils # Seg Neutrophils # Man Lymphocytes # (Manual) Monocytes # (Manual) Eosinophils # (Manual) Nucleated RBC % Basophils # (Manual) PT INR APTT Heparin Anti-Xa Level ABG pH POC ABG pO2 ABG pO2 ABG HCO3 ABG O2 Saturation ABG Base Excess POC ABG pCO2 ABG Hemoglobin ABG Oxyhemoglobin ABG Sodium ABG Chloride ABG Glucose Oxyhemoglobin Sodium Potassium Chloride Carbon Dioxide BUN Creatinine Glucose POC Glucose 125 H 143 H 158 H Lactic Acid Calcium Phosphorus Magnesium AST ALT Lactate Dehydrogenase Total Bilirubin Direct Bilirubin CK-MB (CK-2) C-Reactive Protein NT-Pro-B Natriuret Pep Total Protein Albumin Arterial Blood Glucose Urine WBC (Auto) Urine Creatinine Digoxin 03/09/20 03/09/20 03/09/20 06:32 06:32 11:34 WBC RBC Hgb 9.8 L Hct 31.6 L MCHC 31 L RDW 23.1 H MCV 80 L MCH 25 L Lymph % (Auto) 35.1 H [place] % (Auto) 11.4 H [place] # Eos # Lymph # (Auto) [place] # (Auto) Eos # (Auto) Seg Neutrophils % Seg Neuts % (Manual) Baso # (Auto) Lymphocytes % (Manual) Monocytes % (Manual) Eosinophils % (Manual) Basophils % (Manual) Seg Neutrophils # Seg Neutrophils # Man Lymphocytes # (Manual) Monocytes # (Manual) Eosinophils # (Manual) Nucleated RBC % Basophils # (Manual) PT INR APTT Heparin Anti-Xa Level ABG pH POC ABG pO2 ABG pO2 ABG HCO3 ABG O2 Saturation ABG Base Excess POC ABG pCO2 ABG Hemoglobin ABG Oxyhemoglobin ABG Sodium ABG Chloride ABG Glucose Oxyhemoglobin Sodium 136 L Potassium Chloride Carbon Dioxide BUN 25 H Creatinine 0.6 L Glucose 170 H POC Glucose 140 H Lactic Acid Calcium Phosphorus Magnesium AST ALT Lactate Dehydrogenase Total Bilirubin Direct Bilirubin CK-MB (CK-2) C-Reactive Protein NT-Pro-B Natriuret Pep Total Protein Albumin Arterial Blood Glucose Urine WBC (Auto) Urine Creatinine Digoxin 03/09/20 03/09/20 03/10/20 18:10 23:11 05:41 WBC RBC Hgb Hct MCHC RDW MCV MCH Lymph % (Auto) [place] % (Auto) [place] # Eos # Lymph # (Auto) [place] # (Auto) Eos # (Auto) Seg Neutrophils % Seg Neuts % (Manual) Baso # (Auto) Lymphocytes % (Manual) Monocytes % (Manual) Eosinophils % (Manual) Basophils % (Manual) Seg Neutrophils # Seg Neutrophils # Man Lymphocytes # (Manual) Monocytes # (Manual) Eosinophils # (Manual) Nucleated RBC % Basophils # (Manual) PT INR APTT Heparin Anti-Xa Level ABG pH POC ABG pO2 ABG pO2 ABG HCO3 ABG O2 Saturation ABG Base Excess POC ABG pCO2 ABG Hemoglobin ABG Oxyhemoglobin ABG Sodium ABG Chloride ABG Glucose Oxyhemoglobin Sodium Potassium Chloride Carbon Dioxide BUN Creatinine Glucose POC Glucose 153 H 111 H 138 H Lactic Acid Calcium Phosphorus Magnesium AST ALT Lactate Dehydrogenase Total Bilirubin Direct Bilirubin CK-MB (CK-2) C-Reactive Protein NT-Pro-B Natriuret Pep Total Protein Albumin Arterial Blood Glucose Urine WBC (Auto) Urine Creatinine Digoxin 03/10/20 03/10/20 03/10/20 11:15 17:58 23:36 WBC RBC Hgb Hct MCHC RDW MCV MCH Lymph % (Auto) [place] % (Auto) [place] # Eos # Lymph # (Auto) [place] # (Auto) Eos # (Auto) Seg Neutrophils % Seg Neuts % (Manual) Baso # (Auto) Lymphocytes % (Manual) Monocytes % (Manual) Eosinophils % (Manual) Basophils % (Manual) Seg Neutrophils # Seg Neutrophils # Man Lymphocytes # (Manual) Monocytes # (Manual) Eosinophils # (Manual) Nucleated RBC % Basophils # (Manual) PT INR APTT Heparin Anti-Xa Level ABG pH POC ABG pO2 ABG pO2 ABG HCO3 ABG O2 Saturation ABG Base Excess POC ABG pCO2 ABG Hemoglobin ABG Oxyhemoglobin ABG Sodium ABG Chloride ABG Glucose Oxyhemoglobin Sodium Potassium Chloride Carbon Dioxide BUN Creatinine Glucose POC Glucose 141 H 149 H 148 H Lactic Acid Calcium Phosphorus Magnesium AST ALT Lactate Dehydrogenase Total Bilirubin Direct Bilirubin CK-MB (CK-2) C-Reactive Protein NT-Pro-B Natriuret Pep Total Protein Albumin Arterial Blood Glucose Urine WBC (Auto) Urine Creatinine Digoxin 03/11/20 03/11/20 03/12/20 05:55 17:43 04:45 WBC RBC Hgb Hct MCHC RDW MCV MCH Lymph % (Auto) [place] % (Auto) [place] # Eos # Lymph # (Auto) [place] # (Auto) Eos # (Auto) Seg Neutrophils % Seg Neuts % (Manual) Baso # (Auto) Lymphocytes % (Manual) Monocytes % (Manual) Eosinophils % (Manual) Basophils % (Manual) Seg Neutrophils # Seg Neutrophils # Man Lymphocytes # (Manual) Monocytes # (Manual) Eosinophils # (Manual) Nucleated RBC % Basophils # (Manual) PT INR APTT Heparin Anti-Xa Level ABG pH 7.454 H POC ABG pO2 69.2 L ABG pO2 ABG HCO3 ABG O2 Saturation ABG Base Excess POC ABG pCO2 ABG Hemoglobin 11.2 L ABG Oxyhemoglobin ABG Sodium 134.7 L ABG Chloride ABG Glucose 151 H Oxyhemoglobin Sodium Potassium Chloride Carbon Dioxide BUN Creatinine Glucose POC Glucose 181 H 107 H Lactic Acid Calcium Phosphorus Magnesium AST ALT Lactate Dehydrogenase Total Bilirubin Direct Bilirubin CK-MB (CK-2) C-Reactive Protein NT-Pro-B Natriuret Pep Total Protein Albumin Arterial Blood Glucose 151 H Urine WBC (Auto) Urine Creatinine Digoxin 03/12/20 03/12/20 03/12/20 05:36 11:36 17:40 WBC RBC Hgb Hct MCHC RDW MCV MCH Lymph % (Auto) [place] % (Auto) [place] # Eos # Lymph # (Auto) [place] # (Auto) Eos # (Auto) Seg Neutrophils % Seg Neuts % (Manual) Baso # (Auto) Lymphocytes % (Manual) Monocytes % (Manual) Eosinophils % (Manual) Basophils % (Manual) Seg Neutrophils # Seg Neutrophils # Man Lymphocytes # (Manual) Monocytes # (Manual) Eosinophils # (Manual) Nucleated RBC % Basophils # (Manual) PT INR APTT Heparin Anti-Xa Level ABG pH POC ABG pO2 ABG pO2 ABG HCO3 ABG O2 Saturation ABG Base Excess POC ABG pCO2 ABG Hemoglobin ABG Oxyhemoglobin ABG Sodium ABG Chloride ABG Glucose Oxyhemoglobin Sodium Potassium Chloride Carbon Dioxide BUN Creatinine Glucose POC Glucose 137 H 122 H 116 H Lactic Acid Calcium Phosphorus Magnesium AST ALT Lactate Dehydrogenase Total Bilirubin Direct Bilirubin CK-MB (CK-2) C-Reactive Protein NT-Pro-B Natriuret Pep Total Protein Albumin Arterial Blood Glucose Urine WBC (Auto) Urine Creatinine Digoxin 03/12/20 03/13/20 03/13/20 23:17 05:47 11:35 WBC RBC Hgb Hct MCHC RDW MCV MCH Lymph % (Auto) [place] % (Auto) [place] # Eos # Lymph # (Auto) [place] # (Auto) Eos # (Auto) Seg Neutrophils % Seg Neuts % (Manual) Baso # (Auto) Lymphocytes % (Manual) Monocytes % (Manual) Eosinophils % (Manual) Basophils % (Manual) Seg Neutrophils # Seg Neutrophils # Man Lymphocytes # (Manual) Monocytes # (Manual) Eosinophils # (Manual) Nucleated RBC % Basophils # (Manual) PT INR APTT Heparin Anti-Xa Level ABG pH POC ABG pO2 ABG pO2 ABG HCO3 ABG O2 Saturation ABG Base Excess POC ABG pCO2 ABG Hemoglobin ABG Oxyhemoglobin ABG Sodium ABG Chloride ABG Glucose Oxyhemoglobin Sodium Potassium Chloride Carbon Dioxide BUN Creatinine Glucose POC Glucose 118 H 142 H 146 H Lactic Acid Calcium Phosphorus Magnesium AST ALT Lactate Dehydrogenase Total Bilirubin Direct Bilirubin CK-MB (CK-2) C-Reactive Protein NT-Pro-B Natriuret Pep Total Protein Albumin Arterial Blood Glucose Urine WBC (Auto) Urine Creatinine Digoxin 03/13/20 03/13/20 03/14/20 17:25 23:27 05:04 WBC RBC Hgb Hct MCHC RDW MCV MCH Lymph % (Auto) [place] % (Auto) [place] # Eos # Lymph # (Auto) [place] # (Auto) Eos # (Auto) Seg Neutrophils % Seg Neuts % (Manual) Baso # (Auto) Lymphocytes % (Manual) Monocytes % (Manual) Eosinophils % (Manual) Basophils % (Manual) Seg Neutrophils # Seg Neutrophils # Man Lymphocytes # (Manual) Monocytes # (Manual) Eosinophils # (Manual) Nucleated RBC % Basophils # (Manual) PT INR APTT Heparin Anti-Xa Level ABG pH POC ABG pO2 ABG pO2 ABG HCO3 ABG O2 Saturation ABG Base Excess POC ABG pCO2 ABG Hemoglobin ABG Oxyhemoglobin ABG Sodium ABG Chloride ABG Glucose Oxyhemoglobin Sodium Potassium Chloride Carbon Dioxide BUN Creatinine Glucose POC Glucose 138 H 160 H 159 H Lactic Acid Calcium Phosphorus Magnesium AST ALT Lactate Dehydrogenase Total Bilirubin Direct Bilirubin CK-MB (CK-2) C-Reactive Protein NT-Pro-B Natriuret Pep Total Protein Albumin Arterial Blood Glucose Urine WBC (Auto) Urine Creatinine Digoxin 03/14/20 03/14/20 03/15/20 11:19 16:18 00:18 WBC RBC Hgb Hct MCHC RDW MCV MCH Lymph % (Auto) [place] % (Auto) [place] # Eos # Lymph # (Auto) [place] # (Auto) Eos # (Auto) Seg Neutrophils % Seg Neuts % (Manual) Baso # (Auto) Lymphocytes % (Manual) Monocytes % (Manual) Eosinophils % (Manual) Basophils % (Manual) Seg Neutrophils # Seg Neutrophils # Man Lymphocytes # (Manual) Monocytes # (Manual) Eosinophils # (Manual) Nucleated RBC % Basophils # (Manual) PT INR APTT Heparin Anti-Xa Level ABG pH POC ABG pO2 ABG pO2 ABG HCO3 ABG O2 Saturation ABG Base Excess POC ABG pCO2 ABG Hemoglobin ABG Oxyhemoglobin ABG Sodium ABG Chloride ABG Glucose Oxyhemoglobin Sodium Potassium Chloride Carbon Dioxide BUN Creatinine Glucose POC Glucose 130 H 170 H 125 H Lactic Acid Calcium Phosphorus Magnesium AST ALT Lactate Dehydrogenase Total Bilirubin Direct Bilirubin CK-MB (CK-2) C-Reactive Protein NT-Pro-B Natriuret Pep Total Protein Albumin Arterial Blood Glucose Urine WBC (Auto) Urine Creatinine Digoxin 03/15/20 03/15/20 03/15/20 04:05 04:05 05:36 WBC RBC Hgb 10.0 L Hct 31.6 L MCHC RDW 22.4 H MCV 77 L MCH 24 L Lymph % (Auto) 36.2 H [place] % (Auto) 9.4 H [place] # Eos # Lymph # (Auto) [place] # (Auto) Eos # (Auto) Seg Neutrophils % Seg Neuts % (Manual) Baso # (Auto) Lymphocytes % (Manual) Monocytes % (Manual) Eosinophils % (Manual) Basophils % (Manual) Seg Neutrophils # Seg Neutrophils # Man Lymphocytes # (Manual) Monocytes # (Manual) Eosinophils # (Manual) Nucleated RBC % Basophils # (Manual) PT INR APTT Heparin Anti-Xa Level ABG pH POC ABG pO2 ABG pO2 ABG HCO3 ABG O2 Saturation ABG Base Excess POC ABG pCO2 ABG Hemoglobin ABG Oxyhemoglobin ABG Sodium ABG Chloride ABG Glucose Oxyhemoglobin Sodium Potassium Chloride Carbon Dioxide 32 H BUN Creatinine 0.5 L Glucose 141 H POC Glucose 130 H Lactic Acid Calcium Phosphorus Magnesium AST ALT Lactate Dehydrogenase Total Bilirubin Direct Bilirubin CK-MB (CK-2) C-Reactive Protein NT-Pro-B Natriuret Pep Total Protein Albumin Arterial Blood Glucose Urine WBC (Auto) Urine Creatinine Digoxin 03/15/20 03/15/20 03/15/20 11:41 17:38 23:16 WBC RBC Hgb Hct MCHC RDW MCV MCH Lymph % (Auto) [place] % (Auto) [place] # Eos # Lymph # (Auto) [place] # (Auto) Eos # (Auto) Seg Neutrophils % Seg Neuts % (Manual) Baso # (Auto) Lymphocytes % (Manual) Monocytes % (Manual) Eosinophils % (Manual) Basophils % (Manual) Seg Neutrophils # Seg Neutrophils # Man Lymphocytes # (Manual) Monocytes # (Manual) Eosinophils # (Manual) Nucleated RBC % Basophils # (Manual) PT INR APTT Heparin Anti-Xa Level ABG pH POC ABG pO2 ABG pO2 ABG HCO3 ABG O2 Saturation ABG Base Excess POC ABG pCO2 ABG Hemoglobin ABG Oxyhemoglobin ABG Sodium ABG Chloride ABG Glucose Oxyhemoglobin Sodium Potassium Chloride Carbon Dioxide BUN Creatinine Glucose POC Glucose 114 H 144 H 116 H Lactic Acid Calcium Phosphorus Magnesium AST ALT Lactate Dehydrogenase Total Bilirubin Direct Bilirubin CK-MB (CK-2) C-Reactive Protein NT-Pro-B Natriuret Pep Total Protein Albumin Arterial Blood Glucose Urine WBC (Auto) Urine Creatinine Digoxin 03/16/20 03/16/20 03/16/20 05:39 13:16 18:29 WBC RBC Hgb Hct MCHC RDW MCV MCH Lymph % (Auto) [place] % (Auto) [place] # Eos # Lymph # (Auto) [place] # (Auto) Eos # (Auto) Seg Neutrophils % Seg Neuts % (Manual) Baso # (Auto) Lymphocytes % (Manual) Monocytes % (Manual) Eosinophils % (Manual) Basophils % (Manual) Seg Neutrophils # Seg Neutrophils # Man Lymphocytes # (Manual) Monocytes # (Manual) Eosinophils # (Manual) Nucleated RBC % Basophils # (Manual) PT INR APTT Heparin Anti-Xa Level ABG pH POC ABG pO2 ABG pO2 ABG HCO3 ABG O2 Saturation ABG Base Excess POC ABG pCO2 ABG Hemoglobin ABG Oxyhemoglobin ABG Sodium ABG Chloride ABG Glucose Oxyhemoglobin Sodium Potassium Chloride Carbon Dioxide BUN Creatinine Glucose POC Glucose 125 H 153 H 135 H Lactic Acid Calcium Phosphorus Magnesium AST ALT Lactate Dehydrogenase Total Bilirubin Direct Bilirubin CK-MB (CK-2) C-Reactive Protein NT-Pro-B Natriuret Pep Total Protein Albumin Arterial Blood Glucose Urine WBC (Auto) Urine Creatinine Digoxin 03/16/20 03/17/20 03/17/20 23:32 05:50 11:38 WBC RBC Hgb Hct MCHC RDW MCV MCH Lymph % (Auto) [place] % (Auto) [place] # Eos # Lymph # (Auto) [place] # (Auto) Eos # (Auto) Seg Neutrophils % Seg Neuts % (Manual) Baso # (Auto) Lymphocytes % (Manual) Monocytes % (Manual) Eosinophils % (Manual) Basophils % (Manual) Seg Neutrophils # Seg Neutrophils # Man Lymphocytes # (Manual) Monocytes # (Manual) Eosinophils # (Manual) Nucleated RBC % Basophils # (Manual) PT INR APTT Heparin Anti-Xa Level ABG pH POC ABG pO2 ABG pO2 ABG HCO3 ABG O2 Saturation ABG Base Excess POC ABG pCO2 ABG Hemoglobin ABG Oxyhemoglobin ABG Sodium ABG Chloride ABG Glucose Oxyhemoglobin Sodium Potassium Chloride Carbon Dioxide BUN Creatinine Glucose POC Glucose 137 H 160 H 134 H Lactic Acid Calcium Phosphorus Magnesium AST ALT Lactate Dehydrogenase Total Bilirubin Direct Bilirubin CK-MB (CK-2) C-Reactive Protein NT-Pro-B Natriuret Pep Total Protein Albumin Arterial Blood Glucose Urine WBC (Auto) Urine Creatinine Digoxin 03/17/20 03/17/20 03/18/20 16:59 23:29 05:39 WBC RBC Hgb Hct MCHC RDW MCV MCH Lymph % (Auto) [place] % (Auto) [place] # Eos # Lymph # (Auto) [place] # (Auto) Eos # (Auto) Seg Neutrophils % Seg Neuts % (Manual) Baso # (Auto) Lymphocytes % (Manual) Monocytes % (Manual) Eosinophils % (Manual) Basophils % (Manual) Seg Neutrophils # Seg Neutrophils # Man Lymphocytes # (Manual) Monocytes # (Manual) Eosinophils # (Manual) Nucleated RBC % Basophils # (Manual) PT INR APTT Heparin Anti-Xa Level ABG pH POC ABG pO2 ABG pO2 ABG HCO3 ABG O2 Saturation ABG Base Excess POC ABG pCO2 ABG Hemoglobin ABG Oxyhemoglobin ABG Sodium ABG Chloride ABG Glucose Oxyhemoglobin Sodium Potassium Chloride Carbon Dioxide BUN Creatinine Glucose POC Glucose 120 H 141 H 181 H Lactic Acid Calcium Phosphorus Magnesium AST ALT Lactate Dehydrogenase Total Bilirubin Direct Bilirubin CK-MB (CK-2) C-Reactive Protein NT-Pro-B Natriuret Pep Total Protein Albumin Arterial Blood Glucose Urine WBC (Auto) Urine Creatinine Digoxin 03/18/20 03/18/20 03/18/20 11:18 15:34 17:42 WBC RBC Hgb Hct MCHC RDW MCV MCH Lymph % (Auto) [place] % (Auto) [place] # Eos # Lymph # (Auto) [place] # (Auto) Eos # (Auto) Seg Neutrophils % Seg Neuts % (Manual) Baso # (Auto) Lymphocytes % (Manual) Monocytes % (Manual) Eosinophils % (Manual) Basophils % (Manual) Seg Neutrophils # Seg Neutrophils # Man Lymphocytes # (Manual) Monocytes # (Manual) Eosinophils # (Manual) Nucleated RBC % Basophils # (Manual) PT INR APTT Heparin Anti-Xa Level ABG pH POC ABG pO2 ABG pO2 ABG HCO3 ABG O2 Saturation ABG Base Excess POC ABG pCO2 ABG Hemoglobin ABG Oxyhemoglobin ABG Sodium ABG Chloride ABG Glucose Oxyhemoglobin Sodium 132 L Potassium 5.4 H D Chloride 96.8 L Carbon Dioxide BUN 24 H Creatinine 0.6 L Glucose 164 H POC Glucose 142 H 118 H Lactic Acid Calcium Phosphorus Magnesium AST ALT Lactate Dehydrogenase Total Bilirubin Direct Bilirubin CK-MB (CK-2) C-Reactive Protein NT-Pro-B Natriuret Pep Total Protein 6.2 L Albumin 2.8 L Arterial Blood Glucose Urine WBC (Auto) Urine Creatinine Digoxin 03/18/20 03/19/20 03/19/20 23:57 05:40 07:50 WBC RBC Hgb Hct MCHC RDW MCV MCH Lymph % (Auto) [place] % (Auto) [place] # Eos # Lymph # (Auto) [place] # (Auto) Eos # (Auto) Seg Neutrophils % Seg Neuts % (Manual) Baso # (Auto) Lymphocytes % (Manual) Monocytes % (Manual) Eosinophils % (Manual) Basophils % (Manual) Seg Neutrophils # Seg Neutrophils # Man Lymphocytes # (Manual) Monocytes # (Manual) Eosinophils # (Manual) Nucleated RBC % Basophils # (Manual) PT INR APTT Heparin Anti-Xa Level ABG pH POC ABG pO2 ABG pO2 ABG HCO3 ABG O2 Saturation ABG Base Excess POC ABG pCO2 ABG Hemoglobin ABG Oxyhemoglobin ABG Sodium ABG Chloride ABG Glucose Oxyhemoglobin Sodium 136 L Potassium Chloride 97.3 L Carbon Dioxide 31 H BUN 22 H Creatinine 0.5 L Glucose 160 H POC Glucose 127 H 136 H Lactic Acid Calcium Phosphorus Magnesium AST ALT Lactate Dehydrogenase Total Bilirubin Direct Bilirubin CK-MB (CK-2) C-Reactive Protein NT-Pro-B Natriuret Pep Total Protein Albumin Arterial Blood Glucose Urine WBC (Auto) Urine Creatinine Digoxin 03/19/20 03/19/20 03/20/20 12:21 17:27 00:31 WBC RBC Hgb Hct MCHC RDW MCV MCH Lymph % (Auto) [place] % (Auto) [place] # Eos # Lymph # (Auto) [place] # (Auto) Eos # (Auto) Seg Neutrophils % Seg Neuts % (Manual) Baso # (Auto) Lymphocytes % (Manual) Monocytes % (Manual) Eosinophils % (Manual) Basophils % (Manual) Seg Neutrophils # Seg Neutrophils # Man Lymphocytes # (Manual) Monocytes # (Manual) Eosinophils # (Manual) Nucleated RBC % Basophils # (Manual) PT INR APTT Heparin Anti-Xa Level ABG pH POC ABG pO2 ABG pO2 ABG HCO3 ABG O2 Saturation ABG Base Excess POC ABG pCO2 ABG Hemoglobin ABG Oxyhemoglobin ABG Sodium ABG Chloride ABG Glucose Oxyhemoglobin Sodium Potassium Chloride Carbon Dioxide BUN Creatinine Glucose POC Glucose 147 H 152 H 132 H Lactic Acid Calcium Phosphorus Magnesium AST ALT Lactate Dehydrogenase Total Bilirubin Direct Bilirubin CK-MB (CK-2) C-Reactive Protein NT-Pro-B Natriuret Pep Total Protein Albumin Arterial Blood Glucose Urine WBC (Auto) Urine Creatinine Digoxin 12/03/20/20 03/20/20 05:59 11:45 17:24 WBC RBC Hgb Hct MCHC RDW MCV MCH Lymph % (Auto) [place] % (Auto) [place] # Eos # Lymph # (Auto) [place] # (Auto) Eos # (Auto) Seg Neutrophils % Seg Neuts % (Manual) Baso # (Auto) Lymphocytes % (Manual) Monocytes % (Manual) Eosinophils % (Manual) Basophils % (Manual) Seg Neutrophils # Seg Neutrophils # Man Lymphocytes # (Manual) Monocytes # (Manual) Eosinophils # (Manual) Nucleated RBC % Basophils # (Manual) PT INR APTT Heparin Anti-Xa Level ABG pH POC ABG pO2 ABG pO2 ABG HCO3 ABG O2 Saturation ABG Base Excess POC ABG pCO2 ABG Hemoglobin ABG Oxyhemoglobin ABG Sodium ABG Chloride ABG Glucose Oxyhemoglobin Sodium Potassium Chloride Carbon Dioxide BUN Creatinine Glucose POC Glucose 146 H 142 H 107 H Lactic Acid Calcium Phosphorus Magnesium AST ALT Lactate Dehydrogenase Total Bilirubin Direct Bilirubin CK-MB (CK-2) C-Reactive Protein NT-Pro-B Natriuret Pep Total Protein Albumin Arterial Blood Glucose Urine WBC (Auto) Urine Creatinine Digoxin 03/20/20 03/21/20 03/21/20 23:38 05:38 11:22 WBC RBC Hgb Hct MCHC RDW MCV MCH Lymph % (Auto) [place] % (Auto) [place] # Eos # Lymph # (Auto) [place] # (Auto) Eos # (Auto) Seg Neutrophils % Seg Neuts % (Manual) Baso # (Auto) Lymphocytes % (Manual) Monocytes % (Manual) Eosinophils % (Manual) Basophils % (Manual) Seg Neutrophils # Seg Neutrophils # Man Lymphocytes # (Manual) Monocytes # (Manual) Eosinophils # (Manual) Nucleated RBC % Basophils # (Manual) PT INR APTT Heparin Anti-Xa Level ABG pH POC ABG pO2 ABG pO2 ABG HCO3 ABG O2 Saturation ABG Base Excess POC ABG pCO2 ABG Hemoglobin ABG Oxyhemoglobin ABG Sodium ABG Chloride ABG Glucose Oxyhemoglobin Sodium Potassium Chloride Carbon Dioxide BUN Creatinine Glucose POC Glucose 115 H 133 H 137 H Lactic Acid Calcium Phosphorus Magnesium AST ALT Lactate Dehydrogenase Total Bilirubin Direct Bilirubin CK-MB (CK-2) C-Reactive Protein NT-Pro-B Natriuret Pep Total Protein Albumin Arterial Blood Glucose Urine WBC (Auto) Urine Creatinine Digoxin 03/21/20 03/22/20 03/22/20 18:26 00:10 05:29 WBC RBC Hgb Hct MCHC RDW MCV MCH Lymph % (Auto) [place] % (Auto) [place] # Eos # Lymph # (Auto) [place] # (Auto) Eos # (Auto) Seg Neutrophils % Seg Neuts % (Manual) Baso # (Auto) Lymphocytes % (Manual) Monocytes % (Manual) Eosinophils % (Manual) Basophils % (Manual) Seg Neutrophils # Seg Neutrophils # Man Lymphocytes # (Manual) Monocytes # (Manual) Eosinophils # (Manual) Nucleated RBC % Basophils # (Manual) PT INR APTT Heparin Anti-Xa Level ABG pH POC ABG pO2 ABG pO2 ABG HCO3 ABG O2 Saturation ABG Base Excess POC ABG pCO2 ABG Hemoglobin ABG Oxyhemoglobin ABG Sodium ABG Chloride ABG Glucose Oxyhemoglobin Sodium Potassium Chloride Carbon Dioxide BUN Creatinine Glucose POC Glucose 200 H 123 H 156 H Lactic Acid Calcium Phosphorus Magnesium AST ALT Lactate Dehydrogenase Total Bilirubin Direct Bilirubin CK-MB (CK-2) C-Reactive Protein NT-Pro-B Natriuret Pep Total Protein Albumin Arterial Blood Glucose Urine WBC (Auto) Urine Creatinine Digoxin 03/22/20 03/22/20 03/22/20 06:39 06:39 06:39 WBC RBC Hgb 9.7 L Hct 30.7 L MCHC RDW 22.2 H MCV 77 L MCH 25 L Lymph % (Auto) [place] % (Auto) 9.0 H [place] # Eos # Lymph # (Auto) [place] # (Auto) Eos # (Auto) Seg Neutrophils % Seg Neuts % (Manual) Baso # (Auto) Lymphocytes % (Manual) Monocytes % (Manual) Eosinophils % (Manual) Basophils % (Manual) Seg Neutrophils # Seg Neutrophils # Man Lymphocytes # (Manual) Monocytes # (Manual) Eosinophils # (Manual) Nucleated RBC % Basophils # (Manual) PT INR APTT Heparin Anti-Xa Level ABG pH POC ABG pO2 ABG pO2 ABG HCO3 ABG O2 Saturation ABG Base Excess POC ABG pCO2 ABG Hemoglobin ABG Oxyhemoglobin ABG Sodium ABG Chloride ABG Glucose Oxyhemoglobin Sodium Potassium Chloride Carbon Dioxide 33 H BUN Creatinine 0.5 L Glucose 147 H POC Glucose Lactic Acid Calcium Phosphorus Magnesium AST ALT Lactate Dehydrogenase Total Bilirubin Direct Bilirubin CK-MB (CK-2) C-Reactive Protein NT-Pro-B Natriuret Pep Total Protein Albumin Arterial Blood Glucose Urine WBC (Auto) Urine Creatinine Digoxin 0.8 L 03/22/20 03/22/20 03/22/20 11:22 17:49 23:38 WBC RBC Hgb Hct MCHC RDW MCV MCH Lymph % (Auto) [place] % (Auto) [place] # Eos # Lymph # (Auto) [place] # (Auto) Eos # (Auto) Seg Neutrophils % Seg Neuts % (Manual) Baso # (Auto) Lymphocytes % (Manual) Monocytes % (Manual) Eosinophils % (Manual) Basophils % (Manual) Seg Neutrophils # Seg Neutrophils # Man Lymphocytes # (Manual) Monocytes # (Manual) Eosinophils # (Manual) Nucleated RBC % Basophils # (Manual) PT INR APTT Heparin Anti-Xa Level ABG pH POC ABG pO2 ABG pO2 ABG HCO3 ABG O2 Saturation ABG Base Excess POC ABG pCO2 ABG Hemoglobin ABG Oxyhemoglobin ABG Sodium ABG Chloride ABG Glucose Oxyhemoglobin Sodium Potassium Chloride Carbon Dioxide BUN Creatinine Glucose POC Glucose 159 H 119 H 129 H Lactic Acid Calcium Phosphorus Magnesium AST ALT Lactate Dehydrogenase Total Bilirubin Direct Bilirubin CK-MB (CK-2) C-Reactive Protein NT-Pro-B Natriuret Pep Total Protein Albumin Arterial Blood Glucose Urine WBC (Auto) Urine Creatinine Digoxin 03/23/20 03/23/20 03/23/20 05:02 11:38 17:01 WBC RBC Hgb Hct MCHC RDW MCV MCH Lymph % (Auto) [place] % (Auto) [place] # Eos # Lymph # (Auto) [place] # (Auto) Eos # (Auto) Seg Neutrophils % Seg Neuts % (Manual) Baso # (Auto) Lymphocytes % (Manual) Monocytes % (Manual) Eosinophils % (Manual) Basophils % (Manual) Seg Neutrophils # Seg Neutrophils # Man Lymphocytes # (Manual) Monocytes # (Manual) Eosinophils # (Manual) Nucleated RBC % Basophils # (Manual) PT INR APTT Heparin Anti-Xa Level ABG pH POC ABG pO2 ABG pO2 ABG HCO3 ABG O2 Saturation ABG Base Excess POC ABG pCO2 ABG Hemoglobin ABG Oxyhemoglobin ABG Sodium ABG Chloride ABG Glucose Oxyhemoglobin Sodium Potassium Chloride Carbon Dioxide BUN Creatinine Glucose POC Glucose 136 H 129 H 122 H Lactic Acid Calcium Phosphorus Magnesium AST ALT Lactate Dehydrogenase Total Bilirubin Direct Bilirubin CK-MB (CK-2) C-Reactive Protein NT-Pro-B Natriuret Pep Total Protein Albumin Arterial Blood Glucose Urine WBC (Auto) Urine Creatinine Digoxin 03/23/20 03/24/20 03/24/20 23:35 06:55 11:43 WBC RBC Hgb Hct MCHC RDW MCV MCH Lymph % (Auto) [place] % (Auto) [place] # Eos # Lymph # (Auto) [place] # (Auto) Eos # (Auto) Seg Neutrophils % Seg Neuts % (Manual) Baso # (Auto) Lymphocytes % (Manual) Monocytes % (Manual) Eosinophils % (Manual) Basophils % (Manual) Seg Neutrophils # Seg Neutrophils # Man Lymphocytes # (Manual) Monocytes # (Manual) Eosinophils # (Manual) Nucleated RBC % Basophils # (Manual) PT INR APTT Heparin Anti-Xa Level ABG pH POC ABG pO2 ABG pO2 ABG HCO3 ABG O2 Saturation ABG Base Excess POC ABG pCO2 ABG Hemoglobin ABG Oxyhemoglobin ABG Sodium ABG Chloride ABG Glucose Oxyhemoglobin Sodium Potassium Chloride Carbon Dioxide BUN Creatinine Glucose POC Glucose 115 H 122 H 135 H Lactic Acid Calcium Phosphorus Magnesium AST ALT Lactate Dehydrogenase Total Bilirubin Direct Bilirubin CK-MB (CK-2) C-Reactive Protein NT-Pro-B Natriuret Pep Total Protein Albumin Arterial Blood Glucose Urine WBC (Auto) Urine Creatinine Digoxin 03/24/20 03/24/20 03/25/20 17:18 23:27 05:45 WBC RBC Hgb Hct MCHC RDW MCV MCH Lymph % (Auto) [place] % (Auto) [place] # Eos # Lymph # (Auto) [place] # (Auto) Eos # (Auto) Seg Neutrophils % Seg Neuts % (Manual) Baso # (Auto) Lymphocytes % (Manual) Monocytes % (Manual) Eosinophils % (Manual) Basophils % (Manual) Seg Neutrophils # Seg Neutrophils # Man Lymphocytes # (Manual) Monocytes # (Manual) Eosinophils # (Manual) Nucleated RBC % Basophils # (Manual) PT INR APTT Heparin Anti-Xa Level ABG pH POC ABG pO2 ABG pO2 ABG HCO3 ABG O2 Saturation ABG Base Excess POC ABG pCO2 ABG Hemoglobin ABG Oxyhemoglobin ABG Sodium ABG Chloride ABG Glucose Oxyhemoglobin Sodium Potassium Chloride Carbon Dioxide BUN Creatinine Glucose POC Glucose 125 H 124 H 176 H Lactic Acid Calcium Phosphorus Magnesium AST ALT Lactate Dehydrogenase Total Bilirubin Direct Bilirubin CK-MB (CK-2) C-Reactive Protein NT-Pro-B Natriuret Pep Total Protein Albumin Arterial Blood Glucose Urine WBC (Auto) Urine Creatinine Digoxin 03/25/20 03/25/20 03/26/20 11:15 17:00 00:12 WBC RBC Hgb Hct MCHC RDW MCV MCH Lymph % (Auto) [place] % (Auto) [place] # Eos # Lymph # (Auto) [place] # (Auto) Eos # (Auto) Seg Neutrophils % Seg Neuts % (Manual) Baso # (Auto) Lymphocytes % (Manual) Monocytes % (Manual) Eosinophils % (Manual) Basophils % (Manual) Seg Neutrophils # Seg Neutrophils # Man Lymphocytes # (Manual) Monocytes # (Manual) Eosinophils # (Manual) Nucleated RBC % Basophils # (Manual) PT INR APTT Heparin Anti-Xa Level ABG pH POC ABG pO2 ABG pO2 ABG HCO3 ABG O2 Saturation ABG Base Excess POC ABG pCO2 ABG Hemoglobin ABG Oxyhemoglobin ABG Sodium ABG Chloride ABG Glucose Oxyhemoglobin Sodium Potassium Chloride Carbon Dioxide BUN Creatinine Glucose POC Glucose 147 H 111 H 115 H Lactic Acid Calcium Phosphorus Magnesium AST ALT Lactate Dehydrogenase Total Bilirubin Direct Bilirubin CK-MB (CK-2) C-Reactive Protein NT-Pro-B Natriuret Pep Total Protein Albumin Arterial Blood Glucose Urine WBC (Auto) Urine Creatinine Digoxin 03/26/20 03/26/20 03/26/20 04:20 05:28 16:21 WBC RBC Hgb Hct MCHC RDW MCV MCH Lymph % (Auto) [place] % (Auto) [place] # Eos # Lymph # (Auto) [place] # (Auto) Eos # (Auto) Seg Neutrophils % Seg Neuts % (Manual) Baso # (Auto) Lymphocytes % (Manual) Monocytes % (Manual) Eosinophils % (Manual) Basophils % (Manual) Seg Neutrophils # Seg Neutrophils # Man Lymphocytes # (Manual) Monocytes # (Manual) Eosinophils # (Manual) Nucleated RBC % Basophils # (Manual) PT INR APTT Heparin Anti-Xa Level ABG pH POC ABG pO2 ABG pO2 ABG HCO3 ABG O2 Saturation ABG Base Excess POC ABG pCO2 ABG Hemoglobin ABG Oxyhemoglobin ABG Sodium ABG Chloride ABG Glucose Oxyhemoglobin Sodium Potassium Chloride Carbon Dioxide BUN Creatinine 0.6 L Glucose 182 H POC Glucose 158 H 137 H Lactic Acid Calcium Phosphorus Magnesium AST ALT Lactate Dehydrogenase Total Bilirubin Direct Bilirubin CK-MB (CK-2) C-Reactive Protein NT-Pro-B Natriuret Pep Total Protein Albumin Arterial Blood Glucose Urine WBC (Auto) Urine Creatinine Digoxin 03/27/20 03/27/20 03/27/20 00:22 05:49 11:16 WBC RBC Hgb Hct MCHC RDW MCV MCH Lymph % (Auto) [place] % (Auto) [place] # Eos # Lymph # (Auto) [place] # (Auto) Eos # (Auto) Seg Neutrophils % Seg Neuts % (Manual) Baso # (Auto) Lymphocytes % (Manual) Monocytes % (Manual) Eosinophils % (Manual) Basophils % (Manual) Seg Neutrophils # Seg Neutrophils # Man Lymphocytes # (Manual) Monocytes # (Manual) Eosinophils # (Manual) Nucleated RBC % Basophils # (Manual) PT INR APTT Heparin Anti-Xa Level ABG pH POC ABG pO2 ABG pO2 ABG HCO3 ABG O2 Saturation ABG Base Excess POC ABG pCO2 ABG Hemoglobin ABG Oxyhemoglobin ABG Sodium ABG Chloride ABG Glucose Oxyhemoglobin Sodium Potassium Chloride Carbon Dioxide BUN Creatinine Glucose POC Glucose 155 H 117 H 139 H Lactic Acid Calcium Phosphorus Magnesium AST ALT Lactate Dehydrogenase Total Bilirubin Direct Bilirubin CK-MB (CK-2) C-Reactive Protein NT-Pro-B Natriuret Pep Total Protein Albumin Arterial Blood Glucose Urine WBC (Auto) Urine Creatinine Digoxin Allied health notes reviewed: nursing
[2020-03-27] MEDS: DIGOXIN 0.125 MG TAB PO SCH (17:09)
--- NOTE | 2020-03-27 19:19 | Progress Note ---
Assessment and Plan - Patient Problems (1) Paroxysmal atrial fibrillation Current Visit: Yes Status: Acute Plan to address problem: Continue current management of atrial fibrillation on a rate control strategy and oral anticoagulation, stable cardiac status. Subjective Date of service: 03/27/20 Principal diagnosis: Ac hypoxemic resp failure; Pneumonia; PUI COVID-19; CHF; COPD; HTN Interval history: Patient is awake, on the vent via his trach. Heart rate is 120s, atrial fibrillation. Objective Vital Signs Temp Pulse Pulse Resp Resp BP Pulse Ox 03/27/20 19:00 113 H 22 87/67 100 03/27/20 18:30 117 H 18 94/68 99 03/27/20 18:00 115 H 22 85/64 100 03/27/20 17:56 115 H 95/57 97 03/27/20 17:30 120 H 25 H 95/57 100 03/27/20 17:09 118 H 97/72 03/27/20 17:00 107 H 22 97/72 100 03/27/20 16:30 114 H 22 81/62 100 03/27/20 16:00 97.4 F L 107 H 110 H 24 80/55 98 03/27/20 15:55 03/27/20 15:30 103 H 22 102/57 99 03/27/20 15:00 111 H 21 102/57 100 03/27/20 14:31 117 H 21 90/65 100 03/27/20 14:30 104 H 24 90/65 100 03/27/20 14:00 113 H 19 82/62 100 03/27/20 13:30 114 H 21 91/63 99 03/27/20 13:00 119 H 23 88/67 100 03/27/20 12:30 109 H 22 85/62 100 03/27/20 12:00 97.0 F L 94 H 94 H 21 85/62 100 03/27/20 11:30 108 H 14 86/60 100 03/27/20 11:21 114 H 18 103/68 100 03/27/20 11:00 118 H 19 95/67 100 03/27/20 10:30 120 H 24 88/68 100 03/27/20 10:00 112 H 20 88/68 98 03/27/20 09:45 108 H 85/67 03/27/20 09:30 101 H 21 85/67 98 03/27/20 09:00 108 H 21 86/60 98 03/27/20 08:46 106 H 28 H 86/63 100 03/27/20 08:30 107 H 21 98 03/27/20 08:00 120 H 117 H 16 83/65 99 03/27/20 07:30 114 H 20 85/60 100 03/27/20 07:00 124 H 23 85/60 100 03/27/20 06:30 115 H 22 88/64 100 03/27/20 06:00 110 H 20 88/64 100 03/27/20 05:30 124 H 23 95/66 98 03/27/20 05:00 129 H 21 89/68 100 03/27/20 04:49 122 H 89/68 100 03/27/20 04:30 128 H 26 H 98/77 95 03/27/20 04:04 127 H 03/27/20 04:00 22 98/77 98 03/27/20 03:37 97.8 F 03/27/20 03:30 132 H 21 98/77 99 03/27/20 03:00 109 H 19 88/64 100 03/27/20 02:30 126 H 24 95/68 100 03/27/20 02:00 108 H 17 98/75 100 03/27/20 01:44 126 H 03/27/20 01:30 118 H 26 H 106/65 98 03/27/20 01:00 109 H 25 H 97/77 98 03/27/20 00:30 111 H 20 106/67 100 03/27/20 00:00 97.8 F 111 H 23 20 82/63 99 03/26/20 23:30 120 H 20 84/60 100 02 23:00 107 H 19 84/60 100 03/26/20 22:30 109 H 17 103/53 97 03/26/20 22:01 20 03/26/20 22:00 109 H 22 107/85 100 03/26/20 21:37 113 H 107/85 03/26/20 21:30 126 H 23 95/55 100 03/26/20 21:01 17 03/26/20 21:00 116 H 24 102/63 98 03/26/20 20:41 108 H 102/63 97 03/26/20 20:30 126 H 25 H 91/73 96 03/26/20 20:00 97.9 F 114 H 24 97/70 99 03/26/20 19:30 117 H 17 105/75 100 Pulse Ox 03/27/20 19:00 03/27/20 18:30 03/27/20 18:00 03/27/20 17:56 03/27/20 17:30 03/27/20 17:09 03/27/20 17:00 03/27/20 16:30 03/27/20 16:00 03/27/20 15:55 98 03/27/20 15:30 03/27/20 15:00 03/27/20 14:31 03/27/20 14:30 03/27/20 14:00 03/27/20 13:30 03/27/20 13:00 03/27/20 12:30 03/27/20 12:00 03/27/20 11:30 03/27/20 11:21 03/27/20 11:00 03/27/20 10:30 03/27/20 10:00 03/27/20 09:45 03/27/20 09:30 03/27/20 09:00 03/27/20 08:46 03/27/20 08:30 03/27/20 08:00 03/27/20 07:30 03/27/20 07:00 03/27/20 06:30 03/27/20 06:00 03/27/20 05:30 03/27/20 05:00 03/27/20 04:49 03/27/20 04:30 03/27/20 04:04 03/27/20 04:00 03/27/20 03:37 03/27/20 03:30 03/27/20 03:00 03/27/20 02:30 03/27/20 02:00 03/27/20 01:44 03/27/20 01:30 03/27/20 01:00 03/27/20 00:30 03/27/20 00:00 100 03/26/20 23:30 03/26/20 23:00 03/26/20 22:30 03/26/20 22:01 03/26/20 22:00 03/26/20 21:37 03/26/20 21:30 03/26/20 21:01 03/26/20 21:00 03/26/20 20:41 03/26/20 20:30 03/26/20 20:00 03/26/20 19:30 - Physical Examination General: No Apparent Distress, Other (s/p trach) HEENT: Positive: PERRL Neck: Positive: neck supple, Other (s/p trach) Cardiac: Positive: irregularly irregular Lungs: Positive: Decreased Breath Sounds Neuro: Positive: Grossly Intact, Weakness Abdomen: Positive: Soft Skin: Positive: Clear Extremities: Absent: edema - Allied health notes Allied health notes reviewed: nursing
[2020-03-27] MEDS: POLYETHYLENE GLYCOL 3350 17 GM POWDER PO SCH (23:17)
[2020-03-27] MEDS: ACETAMINOPHEN 325 MG/10.15 ML ORAL LIQD UNIT DOSE FEEDTUBE PRN (23:18)
[2020-03-27] MEDS: TAMSULOSIN 0.4 MG CAP PO SCH (23:18)
[2020-03-27] MEDS: ONDANSETRON 4 MG/2 ML INJ IV PRN (23:26)
[2020-03-28] MEDS: INSULIN REGULAR, HUMAN 100 UNIT/ML 3ML VIAL SUB-Q SCH ×3 (06:26→19:10)
[2020-03-28] MEDS ORDERED: SODIUM BICARBONATE 325 MG TAB FEEDTUBE PRN (10:21)
[2020-03-28] MEDS ORDERED: SIMPLE SYRUP 15 ML FEEDTUBE PRN ×2 (10:21)
[2020-03-28] MEDS ORDERED: LIPASE 10,500/PROTEASE 25,000/AMYLASE 43,750 (UNITS) DR CAP FEEDTUBE PRN (10:21)
[2020-03-28] MEDS: METOPROLOL TARTRATE 25 MG TAB FEEDTUBE SCH ×2 (10:52→21:51)
[2020-03-28] MEDS: DOCUSATE SODIUM 100 MG/10 ML ORAL LIQD FEEDTUBE SCH ×2 (10:52→21:49)
[2020-03-28] MEDS: QUEtiapine 100 MG TAB PO SCH ×2 (10:52→21:52)
[2020-03-28] MEDS: FUROSEMIDE 20 MG TAB PO SCH (10:53)
[2020-03-28] MEDS: MIDODRINE 5 MG TAB PO SCH ×3 (10:53→17:35)
[2020-03-28] MEDS: APIXABAN 5 MG TAB PO SCH ×2 (10:53→21:49)
[2020-03-28] MEDS: CLOPIDOGREL 75 MG TAB PO SCH (10:53)
[2020-03-28] MEDS: LANSOPRAZOLE 30 MG SOLUTAB FEEDTUBE SCH (10:53)
[2020-03-28] MEDS: GLYCOPYRROLATE 2 MG TAB PO SCH ×3 (10:55→19:50)
--- NOTE | 2020-03-28 13:13 | Progress Note ---
Assessment and Plan For persistent atrial fibrillation, the patient is on metoprolol, amiodarone and oral anti-coagulant. - Patient Problems (1) Paroxysmal atrial fibrillation Current Visit: Yes Status: Acute Plan to address problem: Continue current management of atrial fibrillation on a rate control strategy and oral anticoagulation, stable cardiac status. Subjective Principal diagnosis: Ac hypoxemic resp failure; Pneumonia; PUI COVID-19; CHF; COPD; HTN Interval history: Patient is awake, on the vent via his trach. Heart rate is 120s, atrial fibrill ation. Objective Vital Signs Temp Pulse Pulse Resp Resp BP Pulse Ox 03/28/20 12:23 03/28/20 12:17 120 H 24 112/50 99 03/28/20 09:32 103 H 18 98/72 100 03/28/20 09:01 111 H 18 90/66 99 03/28/20 08:31 137 H 30 H 90/66 94 03/28/20 08:00 97.4 F L 123 H 116 H 21 99 03/28/20 07:30 119 H 18 102/66 99 03/28/20 07:00 121 H 19 112/73 99 03/28/20 06:30 128 H 22 98/72 99 03/28/20 06:00 156 H 23 95/70 97 03/28/20 05:30 119 H 19 95/70 100 03/28/20 05:00 115 H 19 99/74 98 03/28/20 04:40 116 H 95/70 98 03/28/20 04:30 120 H 17 85/60 99 03/28/20 04:00 109 H 111 H 17 23 94/62 100 03/28/20 03:30 109 H 20 96/72 99 03/28/20 03:23 97.4 F L 03/28/20 03:07 110 H 03/28/20 03:00 114 H 16 83/62 99 03/28/20 02:30 106 H 18 83/62 99 03/28/20 02:00 117 H 17 94/60 98 03/28/20 01:30 128 H 16 103/80 98 03/28/20 01:00 123 H 21 110/65 03/28/20 00:30 114 H 20 93/65 98 03/28/20 00:18 16 03/28/20 00:01 111 H 94/64 100 03/28/20 00:00 115 H 22 94/64 100 03/27/20 23:47 97.9 F 03/27/20 23:30 120 H 21 90/63 100 03/27/20 23:25 114 H 03/27/20 23:22 104 H 90/63 03/27/20 23:18 20 03/27/20 23:00 105 H 22 90/63 99 03/27/20 22:30 124 H 19 87/67 98 03/27/20 22:00 131 H 21 94/43 98 03/27/20 21:30 110 H 21 94/43 99 03/27/20 21:00 112 H 20 96/64 99 03/27/20 20:30 102 H 17 96/64 03/27/20 20:00 97.8 F 115 H 19 93/71 99 03/27/20 19:30 121 H 24 95/74 99 03/27/20 19:14 121 H 03/27/20 19:08 113 H 23 87/67 100 03/27/20 19:00 113 H 22 87/67 100 03/27/20 18:30 117 H 18 94/68 99 03/27/20 18:00 115 H 22 85/64 100 03/27/20 17:56 115 H 95/57 97 03/27/20 17:30 120 H 25 H 95/57 100 03/27/20 17:09 118 H 97/72 03/27/20 17:00 107 H 22 97/72 100 03/27/20 16:30 114 H 22 81/62 100 03/27/20 16:00 97.4 F L 107 H 110 H 24 80/55 98 03/27/20 15:55 03/27/20 15:30 103 H 22 102/57 99 03/27/20 15:00 111 H 21 102/57 100 03/27/20 14:31 117 H 21 90/65 100 03/27/20 14:30 104 H 24 90/65 100 03/27/20 14:00 113 H 19 82/62 100 03/27/20 13:30 114 H 21 91/63 99 Pulse Ox 03/28/20 12:23 98 03/28/20 12:17 03/28/20 09:32 03/28/20 09:01 03/28/20 08:31 03/28/20 08:00 03/28/20 07:30 03/28/20 07:00 03/28/20 06:30 03/28/20 06:00 03/28/20 05:30 03/28/20 05:00 03/28/20 04:40 99 03/28/20 04:30 03/28/20 04:00 03/28/20 03:30 03/28/20 03:23 03/28/20 03:07 03/28/20 03:00 03/28/20 02:30 03/28/20 02:00 03/28/20 01:30 03/28/20 01:00 03/28/20 00:30 03/28/20 00:18 03/28/20 00:01 03/28/20 00:00 03/27/20 23:47 03/27/20 23:30 03/27/20 23:25 03/27/20 23:22 03/27/20 23:18 03/27/20 23:00 03/27/20 22:30 03/27/20 22:00 03/27/20 21:30 03/27/20 21:00 03/27/20 20:30 03/27/20 20:00 03/27/20 19:30 03/27/20 19:14 03/27/20 19:08 03/27/20 19:00 03/27/20 18:30 03/27/20 18:00 03/27/20 17:56 03/27/20 17:30 03/27/20 17:09 03/27/20 17:00 03/27/20 16:30 03/27/20 16:00 03/27/20 15:55 98 03/27/20 15:30 03/27/20 15:00 03/27/20 14:31 03/27/20 14:30 03/27/20 14:00 03/27/20 13:30 - Physical Examination General: No Apparent Distress, Other (s/p trach) HEENT: Positive: PERRL Neck: Positive: neck supple, Other (s/p trach) Cardiac: Positive: irregularly irregular Lungs: Positive: Decreased Breath Sounds Neuro: Positive: Grossly Intact, Weakness Abdomen: Positive: Soft Skin: Positive: Clear Extremities: Absent: edema - Allied health notes Allied health notes reviewed: nursing
--- NOTE | 2020-03-28 14:08 | Progress Note ---
Assessment and Plan Patient Awake. Patient undergoing spontaneous breathing trial with pressure support of 16, FIO2 30%, PEEP 6 and O2 saturation running 98%. Patients blood pressure running slightly low. Patient also tachycardic. Otherwise patient tolerating present ventilator settings good. Decreasing pressure support to 12 Patient afebrile. No leukocytosis. Chest xray done 03/10/20reported Mild CHF. Patient is on Apixaban and prevacid. Continue spontaneous breathing trials as tolerated. Repeating chest xray. - Patient Problems (1) Acute respiratory failure Current Visit: Yes Status: Acute Plan to address problem: Patient is on mechanical ventilation Pressure support 12, FIO2 30%, PEEP 6. Albuterol/atrovent aerosol treatments. Continue apixaban Continue prevacid. Continue spontaneous breathing trials. (2) COPD exacerbation Current Visit: No Status: Acute Plan to address problem: Patient is on mechanical ventilation Pressure support 12, FIO2 30%, PEEP 6. Albuterol/atrovent aerosol treatments. Continue apixaban Continue prevacid. Continue spontaneous breathing trials. (3) Bilateral pneumonia Current Visit: Yes Status: Acute Plan to address problem: Chest xray 03/10/20 reported CHF Patient afebrile. No leukocytosis. Repeating chest xray. (4) CHF exacerbation Current Visit: Yes Status: Acute Plan to address problem: Management as per cardiology. (5) Cardiomyopathy Current Visit: Yes Status: Acute Plan to address problem: Management as per cardiology. (6) Pancreatic lesion Current Visit: Yes Status: Acute Plan to address problem: Management as per primary care. (7) Paroxysmal atrial fibrillation Current Visit: Yes Status: Acute Plan to address problem: Patient is on apixaban. Management as per cardiology. (8) CVA (cerebral vascular accident) Current Visit: No Status: Acute Qualifiers: Precerebral and cerebral artery: middle cerebral artery Laterality of affected vessel: right Plan to address problem: Management as per primary care. (9) Cocaine dependence Current Visit: No Status: Acute Plan to address problem: Management as per primary care. (10) HTN (hypertension) Current Visit: No Status: Acute Qualifiers: Hypertension type: essential hypertension Qualified Code(s): I10 - Essential (primary) hypertension Plan to address problem: Management as per primary care. (11) Nicotine dependence Current Visit: No Status: Acute Qualifiers: Nicotine product type: cigarettes Substance use status: in withdrawal Qualified Code(s): F17.213 - Nicotine dependence, cigarettes, with withdrawal Plan to address problem: Counseled to stop smoking. (12) Obesity hypoventilation syndrome Current Visit: No Status: Acute Plan to address problem: Patient S/P tracheostomy and on mechanical ventilation. Subjective Date of service: 03/28/20 Principal diagnosis: Ac hypoxemic resp failure; Pneumonia; PUI COVID-19; CHF; COPD; HTN Interval history: Patient Awake. Patient undergoing spontaneous breathing trial with pressure support of 16, FIO2 30%, PEEP 6 and O2 saturation running 98%. Patients blood pressure running slightly low. Patient also tachycardic. Otherwise patient figueroa erating present ventilator settings good. Decreasing pressure support to 12 Patient afebrile. No leukocytosis. Chest xray done 03/10/20reported Mild CHF. Patient is on Apixaban and prevacid. Continue spontaneous breathing trials as tolerated. Repeating chest xray. Objective Vital Signs - 12hr 03/28/20 03/28/20 03/28/20 02:30 03:00 03:07 Temperature Pulse Rate 106 H 114 H 110 H Pulse Rate [ From Monitor] Respiratory 18 16 Rate Respiratory Rate [ Generalized] Blood Pressure 83/62 83/62 O2 Sat by Pulse 99 99 Oximetry O2 Sat by Pulse Oximetry [ Assessment] 03/28/20 03/28/20 03/28/20 03:23 03:30 04:00 Temperature 97.4 F L Pulse Rate 109 H 109 H Pulse Rate [ 111 H From Monitor] Respiratory 20 17 Rate Respiratory 23 Rate [ Generalized] Blood Pressure 96/72 94/62 O2 Sat by Pulse 99 100 Oximetry O2 Sat by Pulse Oximetry [ Assessment] 03/28/20 03/28/20 03/28/20 04:30 04:40 05:00 Temperature Pulse Rate 120 H 116 H 115 H Pulse Rate [ From Monitor] Respiratory 17 19 Rate Respiratory Rate [ Generalized] Blood Pressure 85/60 95/70 99/74 O2 Sat by Pulse 99 98 98 Oximetry O2 Sat by Pulse 99 Oximetry [ Assessment] 03/28/20 03/28/20 03/28/20 05:30 06:00 06:30 Temperature Pulse Rate 119 H 156 H 128 H Pulse Rate [ From Monitor] Respiratory 19 23 22 Rate Respiratory Rate [ Generalized] Blood Pressure 95/70 95/70 98/72 O2 Sat by Pulse 100 97 99 Oximetry O2 Sat by Pulse Oximetry [ Assessment] 03/28/20 03/28/20 03/28/20 07:00 07:30 08:00 Temperature 97.4 F L Pulse Rate 121 H 119 H 123 H Pulse Rate [ 116 H From Monitor] Respiratory 19 18 21 Rate Respiratory Rate [ Generalized] Blood Pressure 112/73 102/66 O2 Sat by Pulse 99 99 99 Oximetry O2 Sat by Pulse Oximetry [ Assessment] 03/28/20 03/28/20 03/28/20 08:31 09:01 09:30 Temperature Pulse Rate 137 H 111 H 128 H Pulse Rate [ From Monitor] Respiratory 30 H 18 19 Rate Respiratory Rate [ Generalized] Blood Pressure 90/66 90/66 98/72 O2 Sat by Pulse 94 99 100 Oximetry O2 Sat by Pulse Oximetry [ Assessment] 03/28/20 03/28/20 03/28/20 09:32 10:01 10:30 Temperature Pulse Rate 103 H 122 H 113 H Pulse Rate [ From Monitor] Respiratory 18 22 21 Rate Respiratory Rate [ Generalized] Blood Pressure 98/72 87/65 95/71 O2 Sat by Pulse 100 100 100 Oximetry O2 Sat by Pulse Oximetry [ Assessment] 03/28/20 03/28/20 03/28/20 11:00 11:31 12:00 Temperature 97.7 F Pulse Rate 125 H 100 H 117 H Pulse Rate [ From Monitor] Respiratory 20 19 Rate Respiratory Rate [ Generalized] Blood Pressure 95/75 99/74 O2 Sat by Pulse 100 99 Oximetry O2 Sat by Pulse Oximetry [ Assessment] 03/28/20 03/28/20 03/28/20 12:01 12:17 12:23 Temperature Pulse Rate 125 H 120 H Pulse Rate [ From Monitor] Respiratory 21 24 Rate Respiratory Rate [ Generalized] Blood Pressure 112/50 112/50 O2 Sat by Pulse 99 99 Oximetry O2 Sat by Pulse 98 Oximetry [ Assessment] 03/28/20 03/28/20 12:31 13:00 Temperature Pulse Rate 107 H 112 H Pulse Rate [ From Monitor] Respiratory 17 21 Rate Respiratory Rate [ Generalized] Blood Pressure 88/66 82/58 O2 Sat by Pulse 98 Oximetry O2 Sat by Pulse Oximetry [ Assessment] Constitutional: no acute distress, alert, other (elderly and obese male, normocephalic with mildly increased respiratory effort at rest) Eyes: non-icteric ENT: oropharynx moist, other (+ midline tracheostomy) Neck: supple, no JVD Effort: mildly labored Ascultation: Bilateral: diminished breath sounds, rhonchi (scant), other (tracheal secretions ) Percussion: Bilateral: not dull Cardiovascular: irregular rhythm Gastrointestinal: normoactive bowel sounds, soft, non-tender, non-distended (protuberant), other (protuberant; PEG in place) Integumentary: normal Extremities: no cyanosis, pulses normal, no ischemia or petechiae, edema (2+) Neurologic: non-focal exam (grossly; moves extremities), pupils equal and round, unable to assess Psychiatric: mood appropriate, affect normal CBC and BMP: 03/22/20 06:39 03/26/20 04:20 ABG, PT/INR, D-dimer: ABG ABG pH 7.454 (7.320-7.450) H 03/12/20 04:45 POC ABG pCO2 45.6 mmHg (32.0-48.0) 03/12/20 04:45 ABG pCO2 47.8 mm Hg 02/20/20 06:45 POC ABG pO2 69.2 mmHg (83-108) L 03/12/20 04:45 ABG pO2 88.7 mm Hg (80.0-90.0) 02/20/20 06:45 POC ABG HCO3 31.3 03/12/20 04:45 ABG O2 Saturation 97.2 % (95.0-99.0) 02/20/20 06:45 PT/INR, D-dimer PT 27.0 Sec. (12.2-14.9) H 02/07/20 15:03 INR 2.46 (0.87-1.13) H 02/07/20 15:03 Abnormal lab findings: Abnormal Labs 11/24/19 11/24/19 11/24/19 02:53 02:53 03:45 WBC 14.3 H RBC Hgb Hct MCHC RDW 17.2 H MCV MCH Lymph % (Auto) [place] % (Auto) [place] # Eos # Lymph # (Auto) [place] # (Auto) Eos # (Auto) Seg Neutrophils % Seg Neuts % (Manual) Baso # (Auto) Lymphocytes % (Manual) Monocytes % (Manual) Eosinophils % (Manual) Basophils % (Manual) Seg Neutrophils # Seg Neutrophils # Man 8.3 H Lymphocytes # (Manual) Monocytes # (Manual) 0.9 H Eosinophils # (Manual) Nucleated RBC % Basophils # (Manual) PT INR APTT Heparin Anti-Xa Level ABG pH 7.313 L POC ABG pO2 ABG pO2 102.8 H ABG HCO3 ABG O2 Saturation ABG Base Excess -2.9 L POC ABG pCO2 ABG Hemoglobin ABG Oxyhemoglobin ABG Sodium ABG Chloride ABG Glucose Oxyhemoglobin 93.9 L Sodium Potassium Chloride Carbon Dioxide BUN Creatinine Glucose 195 H POC Glucose Lactic Acid Calcium Phosphorus Magnesium AST ALT Lactate Dehydrogenase Total Bilirubin Direct Bilirubin CK-MB (CK-2) 4.3 H C-Reactive Protein NT-Pro-B Natriuret Pep 1181 H Total Protein Albumin Arterial Blood Glucose Urine WBC (Auto) Urine Creatinine Digoxin 11/24/19 11/24/19 11/24/19 04:53 04:53 10:37 WBC RBC Hgb Hct MCHC RDW MCV MCH Lymph % (Auto) [place] % (Auto) [place] # Eos # Lymph # (Auto) [place] # (Auto) Eos # (Auto) Seg Neutrophils % Seg Neuts % (Manual) Baso # (Auto) Lymphocytes % (Manual) Monocytes % (Manual) Eosinophils % (Manual) Basophils % (Manual) Seg Neutrophils # Seg Neutrophils # Man Lymphocytes # (Manual) Monocytes # (Manual) Eosinophils # (Manual) Nucleated RBC % Basophils # (Manual) PT INR APTT Heparin Anti-Xa Level ABG pH POC ABG pO2 ABG pO2 ABG HCO3 ABG O2 Saturation ABG Base Excess POC ABG pCO2 ABG Hemoglobin ABG Oxyhemoglobin ABG Sodium ABG Chloride ABG Glucose Oxyhemoglobin Sodium Potassium Chloride Carbon Dioxide BUN Creatinine Glucose 162 H POC Glucose Lactic Acid 2.40 H* 2.50 H* Calcium Phosphorus Magnesium AST ALT Lactate Dehydrogenase 240 H Total Bilirubin Direct Bilirubin CK-MB (CK-2) C-Reactive Protein NT-Pro-B Natriuret Pep Total Protein Albumin Arterial Blood Glucose Urine WBC (Auto) Urine Creatinine Digoxin 11/24/19 11/24/19 11/24/19 12:21 14:50 19:54 WBC RBC Hgb Hct MCHC RDW MCV MCH Lymph % (Auto) [place] % (Auto) [place] # Eos # Lymph # (Auto) [place] # (Auto) Eos # (Auto) Seg Neutrophils % Seg Neuts % (Manual) Baso # (Auto) Lymphocytes % (Manual) Monocytes % (Manual) Eosinophils % (Manual) Basophils % (Manual) Seg Neutrophils # Seg Neutrophils # Man Lymphocytes # (Manual) Monocytes # (Manual) Eosinophils # (Manual) Nucleated RBC % Basophils # (Manual) PT INR APTT Heparin Anti-Xa Level ABG pH POC ABG pO2 ABG pO2 ABG HCO3 ABG O2 Saturation ABG Base Excess POC ABG pCO2 ABG Hemoglobin ABG Oxyhemoglobin ABG Sodium ABG Chloride ABG Glucose Oxyhemoglobin Sodium Potassium Chloride Carbon Dioxide BUN Creatinine Glucose POC Glucose 145 H 143 H 124 H Lactic Acid Calcium Phosphorus Magnesium AST ALT Lactate Dehydrogenase Total Bilirubin Direct Bilirubin CK-MB (CK-2) C-Reactive Protein NT-Pro-B Natriuret Pep Total Protein Albumin Arterial Blood Glucose Urine WBC (Auto) Urine Creatinine Digoxin 11/25/19 11/25/19 11/25/19 00:18 03:18 05:11 WBC 13.7 H RBC Hgb Hct MCHC RDW 17.1 H MCV MCH Lymph % (Auto) 10.8 L [place] % (Auto) 8.7 H [place] # 1.2 H Eos # Lymph # (Auto) [place] # (Auto) Eos # (Auto) Seg Neutrophils % 80.2 H Seg Neuts % (Manual) Baso # (Auto) Lymphocytes % (Manual) Monocytes % (Manual) Eosinophils % (Manual) Basophils % (Manual) Seg Neutrophils # 11.0 H Seg Neutrophils # Man Lymphocytes # (Manual) Monocytes # (Manual) Eosinophils # (Manual) Nucleated RBC % Basophils # (Manual) PT INR APTT Heparin Anti-Xa Level ABG pH 7.333 L POC ABG pO2 ABG pO2 61.2 L ABG HCO3 ABG O2 Saturation 90.2 L ABG Base Excess POC ABG pCO2 ABG Hemoglobin 13.7 L ABG Oxyhemoglobin ABG Sodium ABG Chloride ABG Glucose Oxyhemoglobin 88.2 L Sodium Potassium Chloride Carbon Dioxide BUN Creatinine Glucose POC Glucose 109 H Lactic Acid Calcium Phosphorus Magnesium AST ALT Lactate Dehydrogenase Total Bilirubin Direct Bilirubin CK-MB (CK-2) C-Reactive Protein NT-Pro-B Natriuret Pep Total Protein Albumin Arterial Blood Glucose Urine WBC (Auto) Urine Creatinine Digoxin 11/25/19 11/25/19 11/26/19 05:11 11:40 03:12 WBC RBC Hgb Hct MCHC RDW MCV MCH Lymph % (Auto) [place] % (Auto) [place] # Eos # Lymph # (Auto) [place] # (Auto) Eos # (Auto) Seg Neutrophils % Seg Neuts % (Manual) Baso # (Auto) Lymphocytes % (Manual) Monocytes % (Manual) Eosinophils % (Manual) Basophils % (Manual) Seg Neutrophils # Seg Neutrophils # Man Lymphocytes # (Manual) Monocytes # (Manual) Eosinophils # (Manual) Nucleated RBC % Basophils # (Manual) PT INR APTT Heparin Anti-Xa Level ABG pH POC ABG pO2 ABG pO2 155.1 H ABG HCO3 27.8 H ABG O2 Saturation ABG Base Excess POC ABG pCO2 ABG Hemoglobin 12.2 L ABG Oxyhemoglobin ABG Sodium ABG Chloride ABG Glucose Oxyhemoglobin Sodium Potassium Chloride Carbon Dioxide BUN 23 H Creatinine Glucose 110 H POC Glucose 108 H Lactic Acid Calcium Phosphorus Magnesium AST ALT Lactate Dehydrogenase Total Bilirubin Direct Bilirubin CK-MB (CK-2) C-Reactive Protein NT-Pro-B Natriuret Pep Total Protein Albumin Arterial Blood Glucose Urine WBC (Auto) Urine Creatinine Digoxin 11/26/19 11/26/19 11/26/19 06:17 10:43 10:43 WBC 11.4 H RBC Hgb Hct MCHC RDW 17.1 H MCV MCH Lymph % (Auto) [place] % (Auto) [place] # Eos # Lymph # (Auto) [place] # (Auto) Eos # (Auto) Seg Neutrophils % Seg Neuts % (Manual) Baso # (Auto) Lymphocytes % (Manual) Monocytes % (Manual) Eosinophils % (Manual) Basophils % (Manual) Seg Neutrophils # Seg Neutrophils # Man Lymphocytes # (Manual) Monocytes # (Manual) Eosinophils # (Manual) Nucleated RBC % Basophils # (Manual) PT INR APTT Heparin Anti-Xa Level ABG pH POC ABG pO2 ABG pO2 ABG HCO3 ABG O2 Saturation ABG Base Excess POC ABG pCO2 ABG Hemoglobin ABG Oxyhemoglobin ABG Sodium ABG Chloride ABG Glucose Oxyhemoglobin Sodium Potassium Chloride Carbon Dioxide BUN 29 H Creatinine Glucose POC Glucose 107 H Lactic Acid Calcium Phosphorus Magnesium AST ALT Lactate Dehydrogenase Total Bilirubin Direct Bilirubin CK-MB (CK-2) C-Reactive Protein NT-Pro-B Natriuret Pep Total Protein Albumin Arterial Blood Glucose Urine WBC (Auto) Urine Creatinine Digoxin 11/26/19 11/27/19 11/27/19 17:11 01:53 04:11 WBC RBC Hgb Hct MCHC RDW MCV MCH Lymph % (Auto) [place] % (Auto) [place] # Eos # Lymph # (Auto) [place] # (Auto) Eos # (Auto) Seg Neutrophils % Seg Neuts % (Manual) Baso # (Auto) Lymphocytes % (Manual) Monocytes % (Manual) Eosinophils % (Manual) Basophils % (Manual) Seg Neutrophils # Seg Neutrophils # Man Lymphocytes # (Manual) Monocytes # (Manual) Eosinophils # (Manual) Nucleated RBC % Basophils # (Manual) PT INR APTT Heparin Anti-Xa Level ABG pH POC ABG pO2 ABG pO2 ABG HCO3 29.2 H ABG O2 Saturation ABG Base Excess 3.4 H POC ABG pCO2 ABG Hemoglobin 13.3 L ABG Oxyhemoglobin ABG Sodium ABG Chloride ABG Glucose Oxyhemoglobin 94.5 L Sodium Potassium Chloride Carbon Dioxide BUN Creatinine Glucose POC Glucose 113 H 108 H Lactic Acid Calcium Phosphorus Magnesium AST ALT Lactate Dehydrogenase Total Bilirubin Direct Bilirubin CK-MB (CK-2) C-Reactive Protein NT-Pro-B Natriuret Pep Total Protein Albumin Arterial Blood Glucose Urine WBC (Auto) Urine Creatinine Digoxin 11/27/19 11/28/19 11/28/19 05:27 05:00 05:25 WBC RBC Hgb Hct MCHC RDW MCV MCH Lymph % (Auto) [place] % (Auto) [place] # Eos # Lymph # (Auto) [place] # (Auto) Eos # (Auto) Seg Neutrophils % Seg Neuts % (Manual) Baso # (Auto) Lymphocytes % (Manual) Monocytes % (Manual) Eosinophils % (Manual) Basophils % (Manual) Seg Neutrophils # Seg Neutrophils # Man Lymphocytes # (Manual) Monocytes # (Manual) Eosinophils # (Manual) Nucleated RBC % Basophils # (Manual) PT INR APTT Heparin Anti-Xa Level ABG pH POC ABG pO2 68.1 L ABG pO2 ABG HCO3 ABG O2 Saturation ABG Base Excess POC ABG pCO2 ABG Hemoglobin ABG Oxyhemoglobin 91.2 L ABG Sodium ABG Chloride ABG Glucose Oxyhemoglobin Sodium Potassium Chloride Carbon Dioxide BUN Creatinine Glucose POC Glucose 111 H 110 H Lactic Acid Calcium Phosphorus Magnesium AST ALT Lactate Dehydrogenase Total Bilirubin Direct Bilirubin CK-MB (CK-2) C-Reactive Protein NT-Pro-B Natriuret Pep Total Protein Albumin Arterial Blood Glucose Urine WBC (Auto) Urine Creatinine Digoxin 11/28/19 11/28/19 11/28/19 12:08 13:47 13:47 WBC 11.3 H RBC Hgb Hct MCHC RDW 16.1 H MCV MCH Lymph % (Auto) [place] % (Auto) 9.9 H [place] # 1.1 H Eos # Lymph # (Auto) [place] # (Auto) Eos # (Auto) Seg Neutrophils % 71.4 H Seg Neuts % (Manual) Baso # (Auto) Lymphocytes % (Manual) Monocytes % (Manual) Eosinophils % (Manual) Basophils % (Manual) Seg Neutrophils # 8.1 H Seg Neutrophils # Man Lymphocytes # (Manual) Monocytes # (Manual) Eosinophils # (Manual) Nucleated RBC % Basophils # (Manual) PT INR APTT Heparin Anti-Xa Level ABG pH POC ABG pO2 ABG pO2 ABG HCO3 ABG O2 Saturation ABG Base Excess POC ABG pCO2 ABG Hemoglobin ABG Oxyhemoglobin ABG Sodium ABG Chloride ABG Glucose Oxyhemoglobin Sodium Potassium Chloride Carbon Dioxide BUN 23 H Creatinine Glucose 123 H POC Glucose 112 H Lactic Acid Calcium Phosphorus Magnesium AST ALT Lactate Dehydrogenase Total Bilirubin Direct Bilirubin CK-MB (CK-2) C-Reactive Protein NT-Pro-B Natriuret Pep Total Protein Albumin 3.7 L Arterial Blood Glucose Urine WBC (Auto) Urine Creatinine Digoxin 11/28/19 11/29/19 11/29/19 17:26 03:55 17:04 WBC RBC Hgb Hct MCHC RDW MCV MCH Lymph % (Auto) [place] % (Auto) [place] # Eos # Lymph # (Auto) [place] # (Auto) Eos # (Auto) Seg Neutrophils % Seg Neuts % (Manual) Baso # (Auto) Lymphocytes % (Manual) Monocytes % (Manual) Eosinophils % (Manual) Basophils % (Manual) Seg Neutrophils # Seg Neutrophils # Man Lymphocytes # (Manual) Monocytes # (Manual) Eosinophils # (Manual) Nucleated RBC % Basophils # (Manual) PT INR APTT Heparin Anti-Xa Level ABG pH POC ABG pO2 ABG pO2 65.7 L ABG HCO3 28.3 H ABG O2 Saturation 93.9 L ABG Base Excess 3.6 H POC ABG pCO2 ABG Hemoglobin 13.3 L ABG Oxyhemoglobin ABG Sodium ABG Chloride ABG Glucose Oxyhemoglobin 91.5 L Sodium Potassium Chloride Carbon Dioxide BUN Creatinine Glucose POC Glucose 123 H 119 H Lactic Acid Calcium Phosphorus Magnesium AST ALT Lactate Dehydrogenase Total Bilirubin Direct Bilirubin CK-MB (CK-2) C-Reactive Protein NT-Pro-B Natriuret Pep Total Protein Albumin Arterial Blood Glucose Urine WBC (Auto) Urine Creatinine Digoxin 11/30/19 11/30/19 11/30/19 04:17 04:17 04:56 WBC 13.4 H RBC Hgb Hct MCHC RDW 15.6 H MCV MCH Lymph % (Auto) [place] % (Auto) [place] # Eos # Lymph # (Auto) [place] # (Auto) Eos # (Auto) Seg Neutrophils % Seg Neuts % (Manual) Baso # (Auto) Lymphocytes % (Manual) Monocytes % (Manual) Eosinophils % (Manual) Basophils % (Manual) Seg Neutrophils # Seg Neutrophils # Man Lymphocytes # (Manual) Monocytes # (Manual) Eosinophils # (Manual) Nucleated RBC % Basophils # (Manual) PT INR APTT Heparin Anti-Xa Level ABG pH POC ABG pO2 ABG pO2 56.3 L ABG HCO3 29.3 H ABG O2 Saturation 91.5 L ABG Base Excess 4.7 H POC ABG pCO2 ABG Hemoglobin 12.1 L ABG Oxyhemoglobin ABG Sodium ABG Chloride ABG Glucose Oxyhemoglobin 89.2 L Sodium 147 H Potassium Chloride Carbon Dioxide BUN 30 H Creatinine Glucose 124 H POC Glucose Lactic Acid Calcium Phosphorus Magnesium AST ALT Lactate Dehydrogenase Total Bilirubin Direct Bilirubin CK-MB (CK-2) C-Reactive Protein NT-Pro-B Natriuret Pep Total Protein Albumin 3.8 L Arterial Blood Glucose Urine WBC (Auto) Urine Creatinine Digoxin 11/30/19 11/30/19 11/30/19 05:51 11:54 18:17 WBC RBC Hgb Hct MCHC RDW MCV MCH Lymph % (Auto) [place] % (Auto) [place] # Eos # Lymph # (Auto) [place] # (Auto) Eos # (Auto) Seg Neutrophils % Seg Neuts % (Manual) Baso # (Auto) Lymphocytes % (Manual) Monocytes % (Manual) Eosinophils % (Manual) Basophils % (Manual) Seg Neutrophils # Seg Neutrophils # Man Lymphocytes # (Manual) Monocytes # (Manual) Eosinophils # (Manual) Nucleated RBC % Basophils # (Manual) PT INR APTT Heparin Anti-Xa Level ABG pH POC ABG pO2 ABG pO2 ABG HCO3 ABG O2 Saturation ABG Base Excess POC ABG pCO2 ABG Hemoglobin ABG Oxyhemoglobin ABG Sodium ABG Chloride ABG Glucose Oxyhemoglobin Sodium Potassium Chloride Carbon Dioxide BUN Creatinine Glucose POC Glucose 127 H 115 H 143 H Lactic Acid Calcium Phosphorus Magnesium AST ALT Lactate Dehydrogenase Total Bilirubin Direct Bilirubin CK-MB (CK-2) C-Reactive Protein NT-Pro-B Natriuret Pep Total Protein Albumin Arterial Blood Glucose Urine WBC (Auto) Urine Creatinine Digoxin 12/01/19 12/01/19 12/01/19 01:18 05:22 12:16 WBC RBC Hgb Hct MCHC RDW MCV MCH Lymph % (Auto) [place] % (Auto) [place] # Eos # Lymph # (Auto) [place] # (Auto) Eos # (Auto) Seg Neutrophils % Seg Neuts % (Manual) Baso # (Auto) Lymphocytes % (Manual) Monocytes % (Manual) Eosinophils % (Manual) Basophils % (Manual) Seg Neutrophils # Seg Neutrophils # Man Lymphocytes # (Manual) Monocytes # (Manual) Eosinophils # (Manual) Nucleated RBC % Basophils # (Manual) PT INR APTT Heparin Anti-Xa Level ABG pH POC ABG pO2 ABG pO2 ABG HCO3 ABG O2 Saturation ABG Base Excess POC ABG pCO2 ABG Hemoglobin ABG Oxyhemoglobin ABG Sodium ABG Chloride ABG Glucose Oxyhemoglobin Sodium Potassium 3.5 L Chloride 107.8 H Carbon Dioxide BUN 37 H Creatinine Glucose 157 H POC Glucose 118 H 148 H Lactic Acid Calcium 8.2 L D Phosphorus Magnesium AST 48 H ALT 60 H Lactate Dehydrogenase 194 H Total Bilirubin Direct Bilirubin CK-MB (CK-2) C-Reactive Protein 8.50 H NT-Pro-B Natriuret Pep Total Protein 5.5 L Albumin 2.8 L Arterial Blood Glucose Urine WBC (Auto) Urine Creatinine Digoxin 12/01/19 12/02/19 12/02/19 18:04 00:05 05:16 WBC 11.4 H RBC Hgb Hct MCHC RDW 15.9 H MCV MCH Lymph % (Auto) [place] % (Auto) 9.9 H [place] # 1.1 H Eos # Lymph # (Auto) [place] # (Auto) Eos # (Auto) Seg Neutrophils % 70.3 H Seg Neuts % (Manual) Baso # (Auto) Lymphocytes % (Manual) Monocytes % (Manual) Eosinophils % (Manual) Basophils % (Manual) Seg Neutrophils # 8.0 H Seg Neutrophils # Man Lymphocytes # (Manual) Monocytes # (Manual) Eosinophils # (Manual) Nucleated RBC % Basophils # (Manual) PT INR APTT Heparin Anti-Xa Level ABG pH POC ABG pO2 ABG pO2 ABG HCO3 ABG O2 Saturation ABG Base Excess POC ABG pCO2 ABG Hemoglobin ABG Oxyhemoglobin ABG Sodium ABG Chloride ABG Glucose Oxyhemoglobin Sodium Potassium Chloride Carbon Dioxide BUN Creatinine Glucose POC Glucose 143 H 107 H Lactic Acid Calcium Phosphorus Magnesium AST ALT Lactate Dehydrogenase Total Bilirubin Direct Bilirubin CK-MB (CK-2) C-Reactive Protein NT-Pro-B Natriuret Pep Total Protein Albumin Arterial Blood Glucose Urine WBC (Auto) Urine Creatinine Digoxin 12/02/19 12/02/19 12/02/19 05:16 06:03 11:52 WBC RBC Hgb Hct MCHC RDW MCV MCH Lymph % (Auto) [place] % (Auto) [place] # Eos # Lymph # (Auto) [place] # (Auto) Eos # (Auto) Seg Neutrophils % Seg Neuts % (Manual) Baso # (Auto) Lymphocytes % (Manual) Monocytes % (Manual) Eosinophils % (Manual) Basophils % (Manual) Seg Neutrophils # Seg Neutrophils # Man Lymphocytes # (Manual) Monocytes # (Manual) Eosinophils # (Manual) Nucleated RBC % Basophils # (Manual) PT INR APTT Heparin Anti-Xa Level ABG pH POC ABG pO2 ABG pO2 ABG HCO3 ABG O2 Saturation ABG Base Excess POC ABG pCO2 ABG Hemoglobin ABG Oxyhemoglobin ABG Sodium ABG Chloride ABG Glucose Oxyhemoglobin Sodium 146 H Potassium Chloride Carbon Dioxide BUN 28 H Creatinine Glucose 123 H POC Glucose 110 H 152 H Lactic Acid Calcium Phosphorus Magnesium AST ALT Lactate Dehydrogenase Total Bilirubin Direct Bilirubin CK-MB (CK-2) C-Reactive Protein NT-Pro-B Natriuret Pep Total Protein Albumin Arterial Blood Glucose Urine WBC (Auto) Urine Creatinine Digoxin 12/02/19 12/02/19 12/02/19 12:58 17:58 23:36 WBC RBC Hgb Hct MCHC RDW MCV MCH Lymph % (Auto) [place] % (Auto) [place] # Eos # Lymph # (Auto) [place] # (Auto) Eos # (Auto) Seg Neutrophils % Seg Neuts % (Manual) Baso # (Auto) Lymphocytes % (Manual) Monocytes % (Manual) Eosinophils % (Manual) Basophils % (Manual) Seg Neutrophils # Seg Neutrophils # Man Lymphocytes # (Manual) Monocytes # (Manual) Eosinophils # (Manual) Nucleated RBC % Basophils # (Manual) PT INR APTT Heparin Anti-Xa Level ABG pH POC ABG pO2 78.1 L ABG pO2 ABG HCO3 ABG O2 Saturation ABG Base Excess POC ABG pCO2 ABG Hemoglobin ABG Oxyhemoglobin ABG Sodium ABG Chloride ABG Glucose Oxyhemoglobin Sodium Potassium Chloride Carbon Dioxide BUN Creatinine Glucose POC Glucose 120 H 123 H Lactic Acid Calcium Phosphorus Magnesium AST ALT Lactate Dehydrogenase Total Bilirubin Direct Bilirubin CK-MB (CK-2) C-Reactive Protein NT-Pro-B Natriuret Pep Total Protein Albumin Arterial Blood Glucose Urine WBC (Auto) Urine Creatinine Digoxin 12/03/19 12/03/19 12/03/19 06:03 06:14 11:46 WBC RBC Hgb Hct MCHC RDW MCV MCH Lymph % (Auto) [place] % (Auto) [place] # Eos # Lymph # (Auto) [place] # (Auto) Eos # (Auto) Seg Neutrophils % Seg Neuts % (Manual) Baso # (Auto) Lymphocytes % (Manual) Monocytes % (Manual) Eosinophils % (Manual) Basophils % (Manual) Seg Neutrophils # Seg Neutrophils # Man Lymphocytes # (Manual) Monocytes # (Manual) Eosinophils # (Manual) Nucleated RBC % Basophils # (Manual) PT INR APTT Heparin Anti-Xa Level ABG pH POC ABG pO2 ABG pO2 ABG HCO3 ABG O2 Saturation ABG Base Excess POC ABG pCO2 ABG Hemoglobin ABG Oxyhemoglobin ABG Sodium ABG Chloride ABG Glucose Oxyhemoglobin Sodium Potassium Chloride Carbon Dioxide BUN Creatinine Glucose POC Glucose 142 H 130 H Lactic Acid Calcium Phosphorus Magnesium AST ALT Lactate Dehydrogenase Total Bilirubin Direct Bilirubin CK-MB (CK-2) C-Reactive Protein NT-Pro-B Natriuret Pep Total Protein Albumin Arterial Blood Glucose Urine WBC (Auto) 8.0 H Urine Creatinine Digoxin 12/03/19 12/03/19 12/04/19 15:50 17:39 00:04 WBC RBC Hgb Hct MCHC RDW MCV MCH Lymph % (Auto) [place] % (Auto) [place] # Eos # Lymph # (Auto) [place] # (Auto) Eos # (Auto) Seg Neutrophils % Seg Neuts % (Manual) Baso # (Auto) Lymphocytes % (Manual) Monocytes % (Manual) Eosinophils % (Manual) Basophils % (Manual) Seg Neutrophils # Seg Neutrophils # Man Lymphocytes # (Manual) Monocytes # (Manual) Eosinophils # (Manual) Nucleated RBC % Basophils # (Manual) PT INR APTT Heparin Anti-Xa Level ABG pH POC ABG pO2 ABG pO2 ABG HCO3 ABG O2 Saturation ABG Base Excess POC ABG pCO2 ABG Hemoglobin ABG Oxyhemoglobin ABG Sodium ABG Chloride ABG Glucose Oxyhemoglobin Sodium Potassium Chloride Carbon Dioxide BUN Creatinine Glucose POC Glucose 146 H 133 H Lactic Acid Calcium Phosphorus 2.40 L Magnesium AST ALT Lactate Dehydrogenase Total Bilirubin Direct Bilirubin CK-MB (CK-2) C-Reactive Protein NT-Pro-B Natriuret Pep Total Protein Albumin Arterial Blood Glucose Urine WBC (Auto) Urine Creatinine Digoxin 12/04/19 12/04/19 12/04/19 03:58 03:58 05:22 WBC 12.5 H RBC Hgb 11.2 L Hct 35.2 L MCHC RDW 16.0 H MCV MCH Lymph % (Auto) [place] % (Auto) 9.6 H [place] # 1.2 H Eos # 0.5 H Lymph # (Auto) [place] # (Auto) Eos # (Auto) Seg Neutrophils % Seg Neuts % (Manual) Baso # (Auto) Lymphocytes % (Manual) Monocytes % (Manual) Eosinophils % (Manual) Basophils % (Manual) Seg Neutrophils # 8.6 H Seg Neutrophils # Man Lymphocytes # (Manual) Monocytes # (Manual) Eosinophils # (Manual) Nucleated RBC % Basophils # (Manual) PT INR APTT Heparin Anti-Xa Level ABG pH POC ABG pO2 ABG pO2 ABG HCO3 ABG O2 Saturation ABG Base Excess POC ABG pCO2 ABG Hemoglobin ABG Oxyhemoglobin ABG Sodium ABG Chloride ABG Glucose Oxyhemoglobin Sodium 146 H Potassium Chloride 108.6 H Carbon Dioxide BUN 30 H Creatinine 0.7 L Glucose 121 H POC Glucose 132 H Lactic Acid Calcium Phosphorus Magnesium AST ALT Lactate Dehydrogenase Total Bilirubin Direct Bilirubin CK-MB (CK-2) C-Reactive Protein NT-Pro-B Natriuret Pep Total Protein Albumin Arterial Blood Glucose Urine WBC (Auto) Urine Creatinine Digoxin 12/04/19 12/04/19 12/05/19 13:26 18:43 00:19 WBC RBC Hgb Hct MCHC RDW MCV MCH Lymph % (Auto) [place] % (Auto) [place] # Eos # Lymph # (Auto) [place] # (Auto) Eos # (Auto) Seg Neutrophils % Seg Neuts % (Manual) Baso # (Auto) Lymphocytes % (Manual) Monocytes % (Manual) Eosinophils % (Manual) Basophils % (Manual) Seg Neutrophils # Seg Neutrophils # Man Lymphocytes # (Manual) Monocytes # (Manual) Eosinophils # (Manual) Nucleated RBC % Basophils # (Manual) PT INR APTT Heparin Anti-Xa Level ABG pH POC ABG pO2 ABG pO2 ABG HCO3 ABG O2 Saturation ABG Base Excess POC ABG pCO2 ABG Hemoglobin ABG Oxyhemoglobin ABG Sodium ABG Chloride ABG Glucose Oxyhemoglobin Sodium Potassium Chloride Carbon Dioxide BUN Creatinine Glucose POC Glucose 185 H 156 H 150 H Lactic Acid Calcium Phosphorus Magnesium AST ALT Lactate Dehydrogenase Total Bilirubin Direct Bilirubin CK-MB (CK-2) C-Reactive Protein NT-Pro-B Natriuret Pep Total Protein Albumin Arterial Blood Glucose Urine WBC (Auto) Urine Creatinine Digoxin 12/05/19 12/05/19 12/05/19 03:37 03:37 05:14 WBC 16.3 H RBC Hgb 11.4 L Hct MCHC RDW 15.6 H MCV MCH Lymph % (Auto) 9.9 L [place] % (Auto) 9.7 H [place] # 1.6 H Eos # Lymph # (Auto) [place] # (Auto) Eos # (Auto) Seg Neutrophils % 78.0 H Seg Neuts % (Manual) Baso # (Auto) Lymphocytes % (Manual) Monocytes % (Manual) Eosinophils % (Manual) Basophils % (Manual) Seg Neutrophils # 12.7 H Seg Neutrophils # Man Lymphocytes # (Manual) Monocytes # (Manual) Eosinophils # (Manual) Nucleated RBC % Basophils # (Manual) PT INR APTT Heparin Anti-Xa Level ABG pH POC ABG pO2 ABG pO2 ABG HCO3 ABG O2 Saturation ABG Base Excess POC ABG pCO2 ABG Hemoglobin ABG Oxyhemoglobin ABG Sodium ABG Chloride ABG Glucose Oxyhemoglobin Sodium 146 H Potassium Chloride 107.2 H Carbon Dioxide BUN 27 H Creatinine 0.7 L Glucose 171 H POC Glucose 168 H Lactic Acid Calcium Phosphorus Magnesium AST ALT Lactate Dehydrogenase Total Bilirubin Direct Bilirubin CK-MB (CK-2) C-Reactive Protein NT-Pro-B Natriuret Pep Total Protein Albumin Arterial Blood Glucose Urine WBC (Auto) Urine Creatinine Digoxin 12/05/19 12/05/19 12/05/19 12:31 18:10 23:58 WBC RBC Hgb Hct MCHC RDW MCV MCH Lymph % (Auto) [place] % (Auto) [place] # Eos # Lymph # (Auto) [place] # (Auto) Eos # (Auto) Seg Neutrophils % Seg Neuts % (Manual) Baso # (Auto) Lymphocytes % (Manual) Monocytes % (Manual) Eosinophils % (Manual) Basophils % (Manual) Seg Neutrophils # Seg Neutrophils # Man Lymphocytes # (Manual) Monocytes # (Manual) Eosinophils # (Manual) Nucleated RBC % Basophils # (Manual) PT INR APTT Heparin Anti-Xa Level ABG pH POC ABG pO2 ABG pO2 ABG HCO3 ABG O2 Saturation ABG Base Excess POC ABG pCO2 ABG Hemoglobin ABG Oxyhemoglobin ABG Sodium ABG Chloride ABG Glucose Oxyhemoglobin Sodium Potassium Chloride Carbon Dioxide BUN Creatinine Glucose POC Glucose 159 H 198 H 115 H Lactic Acid Calcium Phosphorus Magnesium AST ALT Lactate Dehydrogenase Total Bilirubin Direct Bilirubin CK-MB (CK-2) C-Reactive Protein NT-Pro-B Natriuret Pep Total Protein Albumin Arterial Blood Glucose Urine WBC (Auto) Urine Creatinine Digoxin 12/06/19 12/06/19 12/06/19 05:24 05:24 05:25 WBC 14.9 H RBC Hgb 10.8 L Hct 34.0 L MCHC RDW 15.6 H MCV MCH Lymph % (Auto) 10.7 L [place] % (Auto) 8.3 H [place] # 1.2 H Eos # Lymph # (Auto) [place] # (Auto) Eos # (Auto) Seg Neutrophils % 78.7 H Seg Neuts % (Manual) Baso # (Auto) Lymphocytes % (Manual) Monocytes % (Manual) Eosinophils % (Manual) Basophils % (Manual) Seg Neutrophils # 11.7 H Seg Neutrophils # Man Lymphocytes # (Manual) Monocytes # (Manual) Eosinophils # (Manual) Nucleated RBC % Basophils # (Manual) PT INR APTT Heparin Anti-Xa Level ABG pH POC ABG pO2 ABG pO2 ABG HCO3 ABG O2 Saturation ABG Base Excess POC ABG pCO2 ABG Hemoglobin ABG Oxyhemoglobin ABG Sodium ABG Chloride ABG Glucose Oxyhemoglobin Sodium 148 H Potassium 5.1 H Chloride 107.6 H Carbon Dioxide BUN 27 H Creatinine 0.7 L Glucose 155 H POC Glucose 157 H Lactic Acid Calcium Phosphorus Magnesium AST ALT Lactate Dehydrogenase Total Bilirubin Direct Bilirubin CK-MB (CK-2) C-Reactive Protein NT-Pro-B Natriuret Pep Total Protein Albumin Arterial Blood Glucose Urine WBC (Auto) Urine Creatinine Digoxin 12/07/19 12/07/19 12/07/19 00:13 05:34 11:33 WBC RBC Hgb Hct MCHC RDW MCV MCH Lymph % (Auto) [place] % (Auto) [place] # Eos # Lymph # (Auto) [place] # (Auto) Eos # (Auto) Seg Neutrophils % Seg Neuts % (Manual) Baso # (Auto) Lymphocytes % (Manual) Monocytes % (Manual) Eosinophils % (Manual) Basophils % (Manual) Seg Neutrophils # Seg Neutrophils # Man Lymphocytes # (Manual) Monocytes # (Manual) Eosinophils # (Manual) Nucleated RBC % Basophils # (Manual) PT INR APTT Heparin Anti-Xa Level ABG pH POC ABG pO2 ABG pO2 ABG HCO3 ABG O2 Saturation ABG Base Excess POC ABG pCO2 ABG Hemoglobin ABG Oxyhemoglobin ABG Sodium ABG Chloride ABG Glucose Oxyhemoglobin Sodium Potassium Chloride Carbon Dioxide BUN Creatinine Glucose POC Glucose 142 H 111 H 169 H Lactic Acid Calcium Phosphorus Magnesium AST ALT Lactate Dehydrogenase Total Bilirubin Direct Bilirubin CK-MB (CK-2) C-Reactive Protein NT-Pro-B Natriuret Pep Total Protein Albumin Arterial Blood Glucose Urine WBC (Auto) Urine Creatinine Digoxin 12/07/19 12/07/19 12/07/19 12:41 13:25 18:19 WBC 12.4 H RBC 3.53 L Hgb 10.2 L Hct 32.1 L MCHC RDW 15.3 H MCV MCH Lymph % (Auto) 10.6 L [place] % (Auto) 7.8 H [place] # 1.0 H Eos # Lymph # (Auto) [place] # (Auto) Eos # (Auto) Seg Neutrophils % 77.6 H Seg Neuts % (Manual) Baso # (Auto) Lymphocytes % (Manual) Monocytes % (Manual) Eosinophils % (Manual) Basophils % (Manual) Seg Neutrophils # 9.6 H Seg Neutrophils # Man Lymphocytes # (Manual) Monocytes # (Manual) Eosinophils # (Manual) Nucleated RBC % Basophils # (Manual) PT INR APTT Heparin Anti-Xa Level ABG pH POC ABG pO2 ABG pO2 ABG HCO3 ABG O2 Saturation ABG Base Excess POC ABG pCO2 ABG Hemoglobin ABG Oxyhemoglobin ABG Sodium ABG Chloride ABG Glucose Oxyhemoglobin Sodium 149 H Potassium Chloride 108.4 H Carbon Dioxide BUN 26 H Creatinine 0.6 L Glucose 149 H POC Glucose 164 H Lactic Acid Calcium Phosphorus Magnesium 2.60 H AST 121 H ALT 145 H Lactate Dehydrogenase Total Bilirubin Direct Bilirubin CK-MB (CK-2) C-Reactive Protein NT-Pro-B Natriuret Pep Total Protein Albumin 2.6 L Arterial Blood Glucose Urine WBC (Auto) Urine Creatinine Digoxin 12/07/19 12/08/19 12/08/19 22:25 00:02 03:55 WBC 13.3 H RBC 3.40 L Hgb 9.7 L Hct 30.8 L MCHC 31 L RDW 15.5 H MCV MCH Lymph % (Auto) [place] % (Auto) 8.1 H [place] # 1.1 H Eos # Lymph # (Auto) [place] # (Auto) Eos # (Auto) Seg Neutrophils % 73.0 H Seg Neuts % (Manual) Baso # (Auto) Lymphocytes % (Manual) Monocytes % (Manual) Eosinophils % (Manual) Basophils % (Manual) Seg Neutrophils # 9.7 H Seg Neutrophils # Man Lymphocytes # (Manual) Monocytes # (Manual) Eosinophils # (Manual) Nucleated RBC % Basophils # (Manual) PT INR APTT Heparin Anti-Xa Level 0.12 L ABG pH POC ABG pO2 ABG pO2 ABG HCO3 ABG O2 Saturation ABG Base Excess POC ABG pCO2 ABG Hemoglobin ABG Oxyhemoglobin ABG Sodium ABG Chloride ABG Glucose Oxyhemoglobin Sodium Potassium Chloride Carbon Dioxide BUN Creatinine Glucose POC Glucose 151 H Lactic Acid Calcium Phosphorus Magnesium AST ALT Lactate Dehydrogenase Total Bilirubin Direct Bilirubin CK-MB (CK-2) C-Reactive Protein NT-Pro-B Natriuret Pep Total Protein Albumin Arterial Blood Glucose Urine WBC (Auto) Urine Creatinine Digoxin 12/08/19 12/08/19 12/08/19 03:55 05:21 06:01 WBC RBC Hgb Hct MCHC RDW MCV MCH Lymph % (Auto) [place] % (Auto) [place] # Eos # Lymph # (Auto) [place] # (Auto) Eos # (Auto) Seg Neutrophils % Seg Neuts % (Manual) Baso # (Auto) Lymphocytes % (Manual) Monocytes % (Manual) Eosinophils % (Manual) Basophils % (Manual) Seg Neutrophils # Seg Neutrophils # Man Lymphocytes # (Manual) Monocytes # (Manual) Eosinophils # (Manual) Nucleated RBC % Basophils # (Manual) PT INR APTT Heparin Anti-Xa Level 0.20 L ABG pH POC ABG pO2 ABG pO2 ABG HCO3 ABG O2 Saturation ABG Base Excess POC ABG pCO2 ABG Hemoglobin ABG Oxyhemoglobin ABG Sodium ABG Chloride ABG Glucose Oxyhemoglobin Sodium 149 H Potassium Chloride 108.0 H Carbon Dioxide BUN 28 H Creatinine 0.6 L Glucose 144 H POC Glucose 143 H Lactic Acid Calcium Phosphorus Magnesium AST 98 H ALT 145 H Lactate Dehydrogenase Total Bilirubin Direct Bilirubin CK-MB (CK-2) C-Reactive Protein NT-Pro-B Natriuret Pep Total Protein 6.0 L Albumin 2.4 L Arterial Blood Glucose Urine WBC (Auto) Urine Creatinine Digoxin 12/08/19 12/08/19 12/08/19 12:08 18:11 23:53 WBC RBC Hgb Hct MCHC RDW MCV MCH Lymph % (Auto) [place] % (Auto) [place] # Eos # Lymph # (Auto) [place] # (Auto) Eos # (Auto) Seg Neutrophils % Seg Neuts % (Manual) Baso # (Auto) Lymphocytes % (Manual) Monocytes % (Manual) Eosinophils % (Manual) Basophils % (Manual) Seg Neutrophils # Seg Neutrophils # Man Lymphocytes # (Manual) Monocytes # (Manual) Eosinophils # (Manual) Nucleated RBC % Basophils # (Manual) PT INR APTT Heparin Anti-Xa Level ABG pH POC ABG pO2 ABG pO2 ABG HCO3 ABG O2 Saturation ABG Base Excess POC ABG pCO2 ABG Hemoglobin ABG Oxyhemoglobin ABG Sodium ABG Chloride ABG Glucose Oxyhemoglobin Sodium Potassium Chloride Carbon Dioxide BUN Creatinine Glucose POC Glucose 172 H 122 H 162 H Lactic Acid Calcium Phosphorus Magnesium AST ALT Lactate Dehydrogenase Total Bilirubin Direct Bilirubin CK-MB (CK-2) C-Reactive Protein NT-Pro-B Natriuret Pep Total Protein Albumin Arterial Blood Glucose Urine WBC (Auto) Urine Creatinine Digoxin 12/09/19 12/09/19 12/09/19 04:03 04:03 05:53 WBC RBC Hgb 9.1 L Hct 28.9 L MCHC RDW MCV MCH Lymph % (Auto) [place] % (Auto) [place] # Eos # Lymph # (Auto) [place] # (Auto) Eos # (Auto) Seg Neutrophils % Seg Neuts % (Manual) Baso # (Auto) Lymphocytes % (Manual) Monocytes % (Manual) Eosinophils % (Manual) Basophils % (Manual) Seg Neutrophils # Seg Neutrophils # Man Lymphocytes # (Manual) Monocytes # (Manual) Eosinophils # (Manual) Nucleated RBC % Basophils # (Manual) PT INR APTT Heparin Anti-Xa Level 0.15 L ABG pH POC ABG pO2 ABG pO2 ABG HCO3 ABG O2 Saturation ABG Base Excess POC ABG pCO2 ABG Hemoglobin ABG Oxyhemoglobin ABG Sodium ABG Chloride ABG Glucose Oxyhemoglobin Sodium Potassium Chloride Carbon Dioxide BUN Creatinine Glucose POC Glucose 124 H Lactic Acid Calcium Phosphorus Magnesium AST ALT Lactate Dehydrogenase Total Bilirubin Direct Bilirubin CK-MB (CK-2) C-Reactive Protein NT-Pro-B Natriuret Pep Total Protein Albumin Arterial Blood Glucose Urine WBC (Auto) Urine Creatinine Digoxin 12/09/19 12/09/19 12/10/19 09:43 12:41 00:13 WBC RBC Hgb Hct MCHC RDW MCV MCH Lymph % (Auto) [place] % (Auto) [place] # Eos # Lymph # (Auto) [place] # (Auto) Eos # (Auto) Seg Neutrophils % Seg Neuts % (Manual) Baso # (Auto) Lymphocytes % (Manual) Monocytes % (Manual) Eosinophils % (Manual) Basophils % (Manual) Seg Neutrophils # Seg Neutrophils # Man Lymphocytes # (Manual) Monocytes # (Manual) Eosinophils # (Manual) Nucleated RBC % Basophils # (Manual) PT INR APTT Heparin Anti-Xa Level ABG pH POC ABG pO2 ABG pO2 ABG HCO3 ABG O2 Saturation ABG Base Excess POC ABG pCO2 ABG Hemoglobin ABG Oxyhemoglobin ABG Sodium ABG Chloride ABG Glucose Oxyhemoglobin Sodium Potassium Chloride Carbon Dioxide BUN 25 H Creatinine 0.6 L Glucose 131 H POC Glucose 109 H 120 H Lactic Acid Calcium Phosphorus Magnesium AST ALT Lactate Dehydrogenase Total Bilirubin Direct Bilirubin CK-MB (CK-2) C-Reactive Protein NT-Pro-B Natriuret Pep Total Protein Albumin Arterial Blood Glucose Urine WBC (Auto) Urine Creatinine Digoxin 12/10/19 12/10/19 12/10/19 04:14 04:14 12:00 WBC 13.3 H RBC 3.34 L Hgb 9.6 L Hct 30.4 L MCHC RDW 15.4 H MCV MCH Lymph % (Auto) [place] % (Auto) [place] # Eos # Lymph # (Auto) [place] # (Auto) Eos # (Auto) Seg Neutrophils % Seg Neuts % (Manual) 75.0 H Baso # (Auto) Lymphocytes % (Manual) 13.0 L Monocytes % (Manual) 8.0 H Eosinophils % (Manual) Basophils % (Manual) 2.0 H Seg Neutrophils # Seg Neutrophils # Man 10.0 H Lymphocytes # (Manual) Monocytes # (Manual) 1.1 H Eosinophils # (Manual) Nucleated RBC % Basophils # (Manual) 0.3 H PT INR APTT Heparin Anti-Xa Level ABG pH POC ABG pO2 ABG pO2 ABG HCO3 ABG O2 Saturation ABG Base Excess POC ABG pCO2 ABG Hemoglobin ABG Oxyhemoglobin ABG Sodium ABG Chloride ABG Glucose Oxyhemoglobin Sodium 147 H Potassium Chloride 108.3 H Carbon Dioxide BUN 21 H Creatinine 0.6 L Glucose 104 H POC Glucose 133 H Lactic Acid Calcium Phosphorus Magnesium AST ALT Lactate Dehydrogenase Total Bilirubin Direct Bilirubin CK-MB (CK-2) C-Reactive Protein NT-Pro-B Natriuret Pep Total Protein Albumin Arterial Blood Glucose Urine WBC (Auto) Urine Creatinine Digoxin 12/10/19 12/10/19 12/11/19 18:44 21:20 00:08 WBC 14.9 H RBC 3.36 L Hgb 9.6 L Hct 30.5 L MCHC RDW 15.4 H MCV MCH Lymph % (Auto) [place] % (Auto) [place] # Eos # Lymph # (Auto) [place] # (Auto) Eos # (Auto) Seg Neutrophils % Seg Neuts % (Manual) Baso # (Auto) Lymphocytes % (Manual) Monocytes % (Manual) Eosinophils % (Manual) Basophils % (Manual) Seg Neutrophils # Seg Neutrophils # Man Lymphocytes # (Manual) Monocytes # (Manual) Eosinophils # (Manual) Nucleated RBC % Basophils # (Manual) PT INR APTT Heparin Anti-Xa Level ABG pH POC ABG pO2 ABG pO2 ABG HCO3 ABG O2 Saturation ABG Base Excess POC ABG pCO2 ABG Hemoglobin ABG Oxyhemoglobin ABG Sodium ABG Chloride ABG Glucose Oxyhemoglobin Sodium Potassium Chloride Carbon Dioxide BUN Creatinine Glucose POC Glucose 119 H 134 H Lactic Acid Calcium Phosphorus Magnesium AST ALT Lactate Dehydrogenase Total Bilirubin Direct Bilirubin CK-MB (CK-2) C-Reactive Protein NT-Pro-B Natriuret Pep Total Protein Albumin Arterial Blood Glucose Urine WBC (Auto) Urine Creatinine Digoxin 12/11/19 12/11/19 12/11/19 03:54 07:28 08:36 WBC 11.9 H RBC 3.25 L Hgb 9.6 L Hct 29.2 L MCHC RDW 15.7 H MCV MCH Lymph % (Auto) [place] % (Auto) [place] # Eos # Lymph # (Auto) [place] # (Auto) Eos # (Auto) Seg Neutrophils % Seg Neuts % (Manual) Baso # (Auto) Lymphocytes % (Manual) Monocytes % (Manual) Eosinophils % (Manual) Basophils % (Manual) Seg Neutrophils # Seg Neutrophils # Man Lymphocytes # (Manual) Monocytes # (Manual) Eosinophils # (Manual) Nucleated RBC % Basophils # (Manual) PT INR APTT Heparin Anti-Xa Level 0.10 L 0.16 L ABG pH POC ABG pO2 ABG pO2 ABG HCO3 ABG O2 Saturation ABG Base Excess POC ABG pCO2 ABG Hemoglobin ABG Oxyhemoglobin ABG Sodium ABG Chloride ABG Glucose Oxyhemoglobin Sodium Potassium Chloride Carbon Dioxide BUN Creatinine Glucose POC Glucose Lactic Acid Calcium Phosphorus Magnesium AST ALT Lactate Dehydrogenase Total Bilirubin Direct Bilirubin CK-MB (CK-2) C-Reactive Protein NT-Pro-B Natriuret Pep Total Protein Albumin Arterial Blood Glucose Urine WBC (Auto) Urine Creatinine Digoxin 12/11/19 12/11/19 12/11/19 08:36 11:45 17:15 WBC RBC Hgb Hct MCHC RDW MCV MCH Lymph % (Auto) [place] % (Auto) [place] # Eos # Lymph # (Auto) [place] # (Auto) Eos # (Auto) Seg Neutrophils % Seg Neuts % (Manual) Baso # (Auto) Lymphocytes % (Manual) Monocytes % (Manual) Eosinophils % (Manual) Basophils % (Manual) Seg Neutrophils # Seg Neutrophils # Man Lymphocytes # (Manual) Monocytes # (Manual) Eosinophils # (Manual) Nucleated RBC % Basophils # (Manual) PT INR APTT Heparin Anti-Xa Level ABG pH POC ABG pO2 ABG pO2 ABG HCO3 ABG O2 Saturation ABG Base Excess POC ABG pCO2 ABG Hemoglobin ABG Oxyhemoglobin ABG Sodium ABG Chloride ABG Glucose Oxyhemoglobin Sodium Potassium Chloride Carbon Dioxide BUN Creatinine 0.5 L Glucose 128 H POC Glucose 136 H 109 H Lactic Acid Calcium Phosphorus Magnesium AST ALT Lactate Dehydrogenase Total Bilirubin Direct Bilirubin CK-MB (CK-2) C-Reactive Protein NT-Pro-B Natriuret Pep Total Protein Albumin Arterial Blood Glucose Urine WBC (Auto) Urine Creatinine Digoxin 12/12/19 12/12/19 12/12/19 00:03 05:53 05:53 WBC RBC Hgb 8.8 L Hct 27.6 L MCHC RDW MCV MCH Lymph % (Auto) [place] % (Auto) [place] # Eos # Lymph # (Auto) [place] # (Auto) Eos # (Auto) Seg Neutrophils % Seg Neuts % (Manual) Baso # (Auto) Lymphocytes % (Manual) Monocytes % (Manual) Eosinophils % (Manual) Basophils % (Manual) Seg Neutrophils # Seg Neutrophils # Man Lymphocytes # (Manual) Monocytes # (Manual) Eosinophils # (Manual) Nucleated RBC % Basophils # (Manual) PT INR APTT Heparin Anti-Xa Level 0.22 L ABG pH POC ABG pO2 ABG pO2 ABG HCO3 ABG O2 Saturation ABG Base Excess POC ABG pCO2 ABG Hemoglobin ABG Oxyhemoglobin ABG Sodium ABG Chloride ABG Glucose Oxyhemoglobin Sodium Potassium Chloride Carbon Dioxide BUN Creatinine Glucose POC Glucose 116 H Lactic Acid Calcium Phosphorus Magnesium AST ALT Lactate Dehydrogenase Total Bilirubin Direct Bilirubin CK-MB (CK-2) C-Reactive Protein NT-Pro-B Natriuret Pep Total Protein Albumin Arterial Blood Glucose Urine WBC (Auto) Urine Creatinine Digoxin 12/12/19 12/12/19 12/12/19 09:38 12:18 17:44 WBC RBC Hgb Hct MCHC RDW MCV MCH Lymph % (Auto) [place] % (Auto) [place] # Eos # Lymph # (Auto) [place] # (Auto) Eos # (Auto) Seg Neutrophils % Seg Neuts % (Manual) Baso # (Auto) Lymphocytes % (Manual) Monocytes % (Manual) Eosinophils % (Manual) Basophils % (Manual) Seg Neutrophils # Seg Neutrophils # Man Lymphocytes # (Manual) Monocytes # (Manual) Eosinophils # (Manual) Nucleated RBC % Basophils # (Manual) PT INR APTT Heparin Anti-Xa Level ABG pH POC ABG pO2 ABG pO2 ABG HCO3 ABG O2 Saturation ABG Base Excess POC ABG pCO2 ABG Hemoglobin ABG Oxyhemoglobin ABG Sodium ABG Chloride ABG Glucose Oxyhemoglobin Sodium Potassium Chloride Carbon Dioxide BUN Creatinine Glucose POC Glucose 115 H 146 H 146 H Lactic Acid Calcium Phosphorus Magnesium AST ALT Lactate Dehydrogenase Total Bilirubin Direct Bilirubin CK-MB (CK-2) C-Reactive Protein NT-Pro-B Natriuret Pep Total Protein Albumin Arterial Blood Glucose Urine WBC (Auto) Urine Creatinine Digoxin 12/12/19 12/13/19 12/13/19 23:33 05:32 05:32 WBC 13.1 H RBC 3.27 L Hgb 9.5 L Hct 29.3 L MCHC RDW 15.6 H MCV MCH Lymph % (Auto) [place] % (Auto) [place] # Eos # Lymph # (Auto) [place] # (Auto) Eos # (Auto) Seg Neutrophils % Seg Neuts % (Manual) 74.0 H Baso # (Auto) Lymphocytes % (Manual) 8.0 L Monocytes % (Manual) 9.0 H Eosinophils % (Manual) 5.0 H Basophils % (Manual) Seg Neutrophils # Seg Neutrophils # Man 9.7 H Lymphocytes # (Manual) 1.0 L Monocytes # (Manual) 1.2 H Eosinophils # (Manual) 0.7 H Nucleated RBC % Basophils # (Manual) PT INR APTT Heparin Anti-Xa Level 0.20 L ABG pH POC ABG pO2 ABG pO2 ABG HCO3 ABG O2 Saturation ABG Base Excess POC ABG pCO2 ABG Hemoglobin ABG Oxyhemoglobin ABG Sodium ABG Chloride ABG Glucose Oxyhemoglobin Sodium Potassium Chloride Carbon Dioxide BUN Creatinine Glucose POC Glucose 126 H Lactic Acid Calcium Phosphorus Magnesium AST ALT Lactate Dehydrogenase Total Bilirubin Direct Bilirubin CK-MB (CK-2) C-Reactive Protein NT-Pro-B Natriuret Pep Total Protein Albumin Arterial Blood Glucose Urine WBC (Auto) Urine Creatinine Digoxin 12/13/19 12/13/19 12/13/19 05:32 05:46 11:57 WBC RBC Hgb Hct MCHC RDW MCV MCH Lymph % (Auto) [place] % (Auto) [place] # Eos # Lymph # (Auto) [place] # (Auto) Eos # (Auto) Seg Neutrophils % Seg Neuts % (Manual) Baso # (Auto) Lymphocytes % (Manual) Monocytes % (Manual) Eosinophils % (Manual) Basophils % (Manual) Seg Neutrophils # Seg Neutrophils # Man Lymphocytes # (Manual) Monocytes # (Manual) Eosinophils # (Manual) Nucleated RBC % Basophils # (Manual) PT INR APTT Heparin Anti-Xa Level ABG pH POC ABG pO2 ABG pO2 ABG HCO3 ABG O2 Saturation ABG Base Excess POC ABG pCO2 ABG Hemoglobin ABG Oxyhemoglobin ABG Sodium ABG Chloride ABG Glucose Oxyhemoglobin Sodium Potassium Chloride Carbon Dioxide 31 H BUN Creatinine 0.6 L Glucose 114 H POC Glucose 118 H 133 H Lactic Acid Calcium Phosphorus Magnesium AST ALT Lactate Dehydrogenase Total Bilirubin Direct Bilirubin CK-MB (CK-2) C-Reactive Protein NT-Pro-B Natriuret Pep Total Protein Albumin Arterial Blood Glucose Urine WBC (Auto) Urine Creatinine Digoxin 12/13/19 12/13/19 12/14/19 17:44 23:46 05:32 WBC RBC Hgb Hct MCHC RDW MCV MCH Lymph % (Auto) [place] % (Auto) [place] # Eos # Lymph # (Auto) [place] # (Auto) Eos # (Auto) Seg Neutrophils % Seg Neuts % (Manual) Baso # (Auto) Lymphocytes % (Manual) Monocytes % (Manual) Eosinophils % (Manual) Basophils % (Manual) Seg Neutrophils # Seg Neutrophils # Man Lymphocytes # (Manual) Monocytes # (Manual) Eosinophils # (Manual) Nucleated RBC % Basophils # (Manual) PT INR APTT Heparin Anti-Xa Level ABG pH POC ABG pO2 ABG pO2 ABG HCO3 ABG O2 Saturation ABG Base Excess POC ABG pCO2 ABG Hemoglobin ABG Oxyhemoglobin ABG Sodium ABG Chloride ABG Glucose Oxyhemoglobin Sodium Potassium Chloride Carbon Dioxide BUN Creatinine Glucose POC Glucose 161 H 126 H 139 H Lactic Acid Calcium Phosphorus Magnesium AST ALT Lactate Dehydrogenase Total Bilirubin Direct Bilirubin CK-MB (CK-2) C-Reactive Protein NT-Pro-B Natriuret Pep Total Protein Albumin Arterial Blood Glucose Urine WBC (Auto) Urine Creatinine Digoxin 12/14/19 12/14/19 12/14/19 06:03 06:03 09:37 WBC RBC Hgb 9.6 L Hct 30.4 L MCHC RDW MCV MCH Lymph % (Auto) Donley % (Auto) Donley # Eos # Lymph # (Auto) [place]ley # (Auto) Eos # (Auto) Seg Neutrophils % Seg Neuts % (Manual) Baso # (Auto) Lymphocytes % (Manual) Monocytes % (Manual) Eosinophils % (Manual) Basophils % (Manual) Seg Neutrophils # Seg Neutrophils # Man Lymphocytes # (Manual) Monocytes # (Manual) Eosinophils # (Manual) Nucleated RBC % Basophils # (Manual) PT INR APTT Heparin Anti-Xa Level 0.24 L ABG pH POC ABG pO2 ABG pO2 ABG HCO3 ABG O2 Saturation ABG Base Excess POC ABG pCO2 ABG Hemoglobin ABG Oxyhemoglobin ABG Sodium ABG Chloride ABG Glucose Oxyhemoglobin Sodium Potassium Chloride Carbon Dioxide BUN Creatinine 0.6 L Glucose 162 H POC Glucose Lactic Acid Calcium Phosphorus Magnesium AST 71 H ALT 118 H Lactate Dehydrogenase Total Bilirubin Direct Bilirubin CK-MB (CK-2) C-Reactive Protein NT-Pro-B Natriuret Pep Total Protein 6.2 L Albumin 2.3 L Arterial Blood Glucose Urine WBC (Auto) Urine Creatinine Digoxin 12/14/19 12/14/19 12/15/19 12:06 18:18 00:19 WBC RBC Hgb Hct MCHC RDW MCV MCH Lymph % (Auto) [place] % (Auto) [place] # Eos # Lymph # (Auto) [place] # (Auto) Eos # (Auto) Seg Neutrophils % Seg Neuts % (Manual) Baso # (Auto) Lymphocytes % (Manual) Monocytes % (Manual) Eosinophils % (Manual) Basophils % (Manual) Seg Neutrophils # Seg Neutrophils # Man Lymphocytes # (Manual) Monocytes # (Manual) Eosinophils # (Manual) Nucleated RBC % Basophils # (Manual) PT INR APTT Heparin Anti-Xa Level ABG pH POC ABG pO2 ABG pO2 ABG HCO3 ABG O2 Saturation ABG Base Excess POC ABG pCO2 ABG Hemoglobin ABG Oxyhemoglobin ABG Sodium ABG Chloride ABG Glucose Oxyhemoglobin Sodium Potassium Chloride Carbon Dioxide BUN Creatinine Glucose POC Glucose 147 H 166 H 123 H Lactic Acid Calcium Phosphorus Magnesium AST ALT Lactate Dehydrogenase Total Bilirubin Direct Bilirubin CK-MB (CK-2) C-Reactive Protein NT-Pro-B Natriuret Pep Total Protein Albumin Arterial Blood Glucose Urine WBC (Auto) Urine Creatinine Digoxin 12/15/19 12/15/19 12/15/19 05:28 05:29 05:29 WBC 14.9 H RBC 3.19 L Hgb 9.1 L Hct 28.7 L MCHC RDW 16.0 H MCV MCH Lymph % (Auto) [place] % (Auto) [place] # Eos # Lymph # (Auto) [place] # (Auto) Eos # (Auto) Seg Neutrophils % Seg Neuts % (Manual) Baso # (Auto) Lymphocytes % (Manual) Monocytes % (Manual) Eosinophils % (Manual) Basophils % (Manual) Seg Neutrophils # Seg Neutrophils # Man Lymphocytes # (Manual) Monocytes # (Manual) Eosinophils # (Manual) Nucleated RBC % Basophils # (Manual) PT INR APTT Heparin Anti-Xa Level 0.19 L ABG pH POC ABG pO2 ABG pO2 ABG HCO3 ABG O2 Saturation ABG Base Excess POC ABG pCO2 ABG Hemoglobin ABG Oxyhemoglobin ABG Sodium ABG Chloride ABG Glucose Oxyhemoglobin Sodium Potassium Chloride Carbon Dioxide BUN Creatinine 0.6 L Glucose 110 H POC Glucose Lactic Acid Calcium Phosphorus Magnesium AST ALT Lactate Dehydrogenase Total Bilirubin Direct Bilirubin CK-MB (CK-2) C-Reactive Protein NT-Pro-B Natriuret Pep Total Protein Albumin Arterial Blood Glucose Urine WBC (Auto) Urine Creatinine Digoxin 12/15/19 12/15/19 12/15/19 05:53 11:50 17:26 WBC RBC Hgb Hct MCHC RDW MCV MCH Lymph % (Auto) [place] % (Auto) [place] # Eos # Lymph # (Auto) [place] # (Auto) Eos # (Auto) Seg Neutrophils % Seg Neuts % (Manual) Baso # (Auto) Lymphocytes % (Manual) Monocytes % (Manual) Eosinophils % (Manual) Basophils % (Manual) Seg Neutrophils # Seg Neutrophils # Man Lymphocytes # (Manual) Monocytes # (Manual) Eosinophils # (Manual) Nucleated RBC % Basophils # (Manual) PT INR APTT Heparin Anti-Xa Level ABG pH POC ABG pO2 ABG pO2 ABG HCO3 ABG O2 Saturation ABG Base Excess POC ABG pCO2 ABG Hemoglobin ABG Oxyhemoglobin ABG Sodium ABG Chloride ABG Glucose Oxyhemoglobin Sodium Potassium Chloride Carbon Dioxide BUN Creatinine Glucose POC Glucose 119 H 132 H 128 H Lactic Acid Calcium Phosphorus Magnesium AST ALT Lactate Dehydrogenase Total Bilirubin Direct Bilirubin CK-MB (CK-2) C-Reactive Protein NT-Pro-B Natriuret Pep Total Protein Albumin Arterial Blood Glucose Urine WBC (Auto) Urine Creatinine Digoxin 12/15/19 12/16/19 12/16/19 23:11 05:30 05:46 WBC RBC Hgb 8.8 L Hct 27.9 L MCHC RDW MCV MCH Lymph % (Auto) [place] % (Auto) [place] # Eos # Lymph # (Auto) [place] # (Auto) Eos # (Auto) Seg Neutrophils % Seg Neuts % (Manual) Baso # (Auto) Lymphocytes % (Manual) Monocytes % (Manual) Eosinophils % (Manual) Basophils % (Manual) Seg Neutrophils # Seg Neutrophils # Man Lymphocytes # (Manual) Monocytes # (Manual) Eosinophils # (Manual) Nucleated RBC % Basophils # (Manual) PT INR APTT Heparin Anti-Xa Level ABG pH POC ABG pO2 ABG pO2 ABG HCO3 ABG O2 Saturation ABG Base Excess POC ABG pCO2 ABG Hemoglobin ABG Oxyhemoglobin ABG Sodium ABG Chloride ABG Glucose Oxyhemoglobin Sodium Potassium Chloride Carbon Dioxide BUN Creatinine Glucose POC Glucose 150 H 134 H Lactic Acid Calcium Phosphorus Magnesium AST ALT Lactate Dehydrogenase Total Bilirubin Direct Bilirubin CK-MB (CK-2) C-Reactive Protein NT-Pro-B Natriuret Pep Total Protein Albumin Arterial Blood Glucose Urine WBC (Auto) Urine Creatinine Digoxin 12/16/19 12/16/19 12/16/19 05:46 05:46 11:44 WBC RBC Hgb Hct MCHC RDW MCV MCH Lymph % (Auto) [place] % (Auto) [place] # Eos # Lymph # (Auto) [place] # (Auto) Eos # (Auto) Seg Neutrophils % Seg Neuts % (Manual) Baso # (Auto) Lymphocytes % (Manual) Monocytes % (Manual) Eosinophils % (Manual) Basophils % (Manual) Seg Neutrophils # Seg Neutrophils # Man Lymphocytes # (Manual) Monocytes # (Manual) Eosinophils # (Manual) Nucleated RBC % Basophils # (Manual) PT INR APTT Heparin Anti-Xa Level 0.20 L ABG pH POC ABG pO2 ABG pO2 ABG HCO3 ABG O2 Saturation ABG Base Excess POC ABG pCO2 ABG Hemoglobin ABG Oxyhemoglobin ABG Sodium ABG Chloride ABG Glucose Oxyhemoglobin Sodium Potassium Chloride Carbon Dioxide 31 H BUN Creatinine 0.5 L Glucose 147 H POC Glucose 164 H Lactic Acid Calcium Phosphorus Magnesium AST ALT Lactate Dehydrogenase Total Bilirubin Direct Bilirubin CK-MB (CK-2) C-Reactive Protein NT-Pro-B Natriuret Pep Total Protein Albumin Arterial Blood Glucose Urine WBC (Auto) Urine Creatinine Digoxin 12/16/19 12/16/19 12/17/19 17:17 23:49 05:30 WBC 13.9 H RBC 3.27 L Hgb 9.4 L Hct 29.2 L MCHC RDW 16.0 H MCV MCH Lymph % (Auto) [place] % (Auto) 8.8 H [place] # Eos # Lymph # (Auto) [place] # (Auto) 1.2 H Eos # (Auto) 0.5 H Seg Neutrophils % 70.5 H Seg Neuts % (Manual) Baso # (Auto) 0.2 H Lymphocytes % (Manual) Monocytes % (Manual) Eosinophils % (Manual) Basophils % (Manual) Seg Neutrophils # 9.8 H Seg Neutrophils # Man Lymphocytes # (Manual) Monocytes # (Manual) Eosinophils # (Manual) Nucleated RBC % Basophils # (Manual) PT INR APTT Heparin Anti-Xa Level ABG pH POC ABG pO2 ABG pO2 ABG HCO3 ABG O2 Saturation ABG Base Excess POC ABG pCO2 ABG Hemoglobin ABG Oxyhemoglobin ABG Sodium ABG Chloride ABG Glucose Oxyhemoglobin Sodium Potassium Chloride Carbon Dioxide BUN Creatinine Glucose POC Glucose 162 H 144 H Lactic Acid Calcium Phosphorus Magnesium AST ALT Lactate Dehydrogenase Total Bilirubin Direct Bilirubin CK-MB (CK-2) C-Reactive Protein NT-Pro-B Natriuret Pep Total Protein Albumin Arterial Blood Glucose Urine WBC (Auto) Urine Creatinine Digoxin 12/17/19 12/17/19 12/17/19 05:30 06:06 11:50 WBC RBC Hgb Hct MCHC RDW MCV MCH Lymph % (Auto) [place] % (Auto) [place] # Eos # Lymph # (Auto) [place] # (Auto) Eos # (Auto) Seg Neutrophils % Seg Neuts % (Manual) Baso # (Auto) Lymphocytes % (Manual) Monocytes % (Manual) Eosinophils % (Manual) Basophils % (Manual) Seg Neutrophils # Seg Neutrophils # Man Lymphocytes # (Manual) Monocytes # (Manual) Eosinophils # (Manual) Nucleated RBC % Basophils # (Manual) PT INR APTT Heparin Anti-Xa Level ABG pH POC ABG pO2 ABG pO2 ABG HCO3 ABG O2 Saturation ABG Base Excess POC ABG pCO2 ABG Hemoglobin ABG Oxyhemoglobin ABG Sodium ABG Chloride ABG Glucose Oxyhemoglobin Sodium Potassium Chloride 97.4 L Carbon Dioxide 32 H BUN Creatinine 0.5 L Glucose 135 H POC Glucose 151 H 140 H Lactic Acid Calcium Phosphorus Magnesium AST ALT Lactate Dehydrogenase Total Bilirubin Direct Bilirubin CK-MB (CK-2) C-Reactive Protein NT-Pro-B Natriuret Pep Total Protein Albumin Arterial Blood Glucose Urine WBC (Auto) Urine Creatinine Digoxin 12/17/19 12/17/19 12/18/19 17:50 23:46 05:17 WBC RBC Hgb 8.8 L Hct 28.0 L MCHC RDW MCV MCH Lymph % (Auto) [place] % (Auto) [place] # Eos # Lymph # (Auto) [place] # (Auto) Eos # (Auto) Seg Neutrophils % Seg Neuts % (Manual) Baso # (Auto) Lymphocytes % (Manual) Monocytes % (Manual) Eosinophils % (Manual) Basophils % (Manual) Seg Neutrophils # Seg Neutrophils # Man Lymphocytes # (Manual) Monocytes # (Manual) Eosinophils # (Manual) Nucleated RBC % Basophils # (Manual) PT INR APTT Heparin Anti-Xa Level ABG pH POC ABG pO2 ABG pO2 ABG HCO3 ABG O2 Saturation ABG Base Excess POC ABG pCO2 ABG Hemoglobin ABG Oxyhemoglobin ABG Sodium ABG Chloride ABG Glucose Oxyhemoglobin Sodium Potassium Chloride Carbon Dioxide BUN Creatinine Glucose POC Glucose 158 H 150 H Lactic Acid Calcium Phosphorus Magnesium AST ALT Lactate Dehydrogenase Total Bilirubin Direct Bilirubin CK-MB (CK-2) C-Reactive Protein NT-Pro-B Natriuret Pep Total Protein Albumin Arterial Blood Glucose Urine WBC (Auto) Urine Creatinine Digoxin 12/18/19 12/18/19 12/18/19 05:17 05:49 11:12 WBC RBC Hgb Hct MCHC RDW MCV MCH Lymph % (Auto) [place] % (Auto) [place] # Eos # Lymph # (Auto) [place] # (Auto) Eos # (Auto) Seg Neutrophils % Seg Neuts % (Manual) Baso # (Auto) Lymphocytes % (Manual) Monocytes % (Manual) Eosinophils % (Manual) Basophils % (Manual) Seg Neutrophils # Seg Neutrophils # Man Lymphocytes # (Manual) Monocytes # (Manual) Eosinophils # (Manual) Nucleated RBC % Basophils # (Manual) PT INR APTT Heparin Anti-Xa Level 0.16 L ABG pH POC ABG pO2 ABG pO2 ABG HCO3 ABG O2 Saturation ABG Base Excess POC ABG pCO2 ABG Hemoglobin ABG Oxyhemoglobin ABG Sodium ABG Chloride ABG Glucose Oxyhemoglobin Sodium Potassium Chloride Carbon Dioxide BUN Creatinine Glucose POC Glucose 127 H 191 H Lactic Acid Calcium Phosphorus Magnesium AST ALT Lactate Dehydrogenase Total Bilirubin Direct Bilirubin CK-MB (CK-2) C-Reactive Protein NT-Pro-B Natriuret Pep Total Protein Albumin Arterial Blood Glucose Urine WBC (Auto) Urine Creatinine Digoxin 12/18/19 12/18/19 12/19/19 17:03 20:16 00:08 WBC RBC Hgb Hct MCHC RDW MCV MCH Lymph % (Auto) [place] % (Auto) [place] # Eos # Lymph # (Auto) [place] # (Auto) Eos # (Auto) Seg Neutrophils % Seg Neuts % (Manual) Baso # (Auto) Lymphocytes % (Manual) Monocytes % (Manual) Eosinophils % (Manual) Basophils % (Manual) Seg Neutrophils # Seg Neutrophils # Man Lymphocytes # (Manual) Monocytes # (Manual) Eosinophils # (Manual) Nucleated RBC % Basophils # (Manual) PT INR APTT Heparin Anti-Xa Level ABG pH POC ABG pO2 ABG pO2 ABG HCO3 ABG O2 Saturation ABG Base Excess POC ABG pCO2 ABG Hemoglobin ABG Oxyhemoglobin ABG Sodium ABG Chloride ABG Glucose Oxyhemoglobin Sodium Potassium Chloride Carbon Dioxide BUN Creatinine Glucose POC Glucose 133 H 128 H 129 H Lactic Acid Calcium Phosphorus Magnesium AST ALT Lactate Dehydrogenase Total Bilirubin Direct Bilirubin CK-MB (CK-2) C-Reactive Protein NT-Pro-B Natriuret Pep Total Protein Albumin Arterial Blood Glucose Urine WBC (Auto) Urine Creatinine Digoxin 12/19/19 12/19/19 12/19/19 04:45 04:45 05:35 WBC RBC Hgb Hct MCHC RDW MCV MCH Lymph % (Auto) [place] % (Auto) [place] # Eos # Lymph # (Auto) [place] # (Auto) Eos # (Auto) Seg Neutrophils % Seg Neuts % (Manual) Baso # (Auto) Lymphocytes % (Manual) Monocytes % (Manual) Eosinophils % (Manual) Basophils % (Manual) Seg Neutrophils # Seg Neutrophils # Man Lymphocytes # (Manual) Monocytes # (Manual) Eosinophils # (Manual) Nucleated RBC % Basophils # (Manual) PT INR APTT Heparin Anti-Xa Level 0.17 L ABG pH POC ABG pO2 ABG pO2 ABG HCO3 ABG O2 Saturation ABG Base Excess POC ABG pCO2 ABG Hemoglobin ABG Oxyhemoglobin ABG Sodium ABG Chloride ABG Glucose Oxyhemoglobin Sodium Potassium Chloride Carbon Dioxide BUN Creatinine Glucose POC Glucose 120 H Lactic Acid Calcium Phosphorus Magnesium AST ALT Lactate Dehydrogenase 228 H Total Bilirubin Direct Bilirubin CK-MB (CK-2) C-Reactive Protein NT-Pro-B Natriuret Pep Total Protein Albumin Arterial Blood Glucose Urine WBC (Auto) Urine Creatinine Digoxin 12/19/19 12/19/19 12/19/19 09:20 11:32 11:32 WBC 14.6 H RBC 3.08 L Hgb 9.0 L Hct 26.8 L MCHC RDW 15.9 H MCV MCH Lymph % (Auto) [place] % (Auto) [place] # Eos # Lymph # (Auto) [place] # (Auto) Eos # (Auto) Seg Neutrophils % Seg Neuts % (Manual) 82.0 H Baso # (Auto) Lymphocytes % (Manual) 10.0 L Monocytes % (Manual) Eosinophils % (Manual) Basophils % (Manual) Seg Neutrophils # Seg Neutrophils # Man 12.0 H Lymphocytes # (Manual) Monocytes # (Manual) 0.9 H Eosinophils # (Manual) Nucleated RBC % 1.0 H Basophils # (Manual) PT INR APTT Heparin Anti-Xa Level ABG pH 7.451 H POC ABG pO2 ABG pO2 62.6 L ABG HCO3 33.2 H ABG O2 Saturation 93.8 L ABG Base Excess 8.3 H POC ABG pCO2 ABG Hemoglobin 8.3 L ABG Oxyhemoglobin ABG Sodium ABG Chloride ABG Glucose Oxyhemoglobin 91.9 L Sodium Potassium Chloride 95.0 L Carbon Dioxide 33 H BUN 22 H Creatinine 0.6 L Glucose 150 H POC Glucose Lactic Acid Calcium Phosphorus Magnesium AST ALT Lactate Dehydrogenase Total Bilirubin Direct Bilirubin CK-MB (CK-2) C-Reactive Protein NT-Pro-B Natriuret Pep Total Protein 6.2 L Albumin 2.4 L Arterial Blood Glucose Urine WBC (Auto) Urine Creatinine Digoxin 12/19/19 12/19/19 12/20/19 11:56 18:17 00:09 WBC RBC Hgb Hct MCHC RDW MCV MCH Lymph % (Auto) [place] % (Auto) [place] # Eos # Lymph # (Auto) [place] # (Auto) Eos # (Auto) Seg Neutrophils % Seg Neuts % (Manual) Baso # (Auto) Lymphocytes % (Manual) Monocytes % (Manual) Eosinophils % (Manual) Basophils % (Manual) Seg Neutrophils # Seg Neutrophils # Man Lymphocytes # (Manual) Monocytes # (Manual) Eosinophils # (Manual) Nucleated RBC % Basophils # (Manual) PT INR APTT Heparin Anti-Xa Level ABG pH POC ABG pO2 ABG pO2 ABG HCO3 ABG O2 Saturation ABG Base Excess POC ABG pCO2 ABG Hemoglobin ABG Oxyhemoglobin ABG Sodium ABG Chloride ABG Glucose Oxyhemoglobin Sodium Potassium Chloride Carbon Dioxide BUN Creatinine Glucose POC Glucose 156 H 156 H 155 H Lactic Acid Calcium Phosphorus Magnesium AST ALT Lactate Dehydrogenase Total Bilirubin Direct Bilirubin CK-MB (CK-2) C-Reactive Protein NT-Pro-B Natriuret Pep Total Protein Albumin Arterial Blood Glucose Urine WBC (Auto) Urine Creatinine Digoxin 12/20/19 12/20/19 12/20/19 05:26 06:02 18:17 WBC RBC Hgb Hct MCHC RDW MCV MCH Lymph % (Auto) [place] % (Auto) [place] # Eos # Lymph # (Auto) [place] # (Auto) Eos # (Auto) Seg Neutrophils % Seg Neuts % (Manual) Baso # (Auto) Lymphocytes % (Manual) Monocytes % (Manual) Eosinophils % (Manual) Basophils % (Manual) Seg Neutrophils # Seg Neutrophils # Man Lymphocytes # (Manual) Monocytes # (Manual) Eosinophils # (Manual) Nucleated RBC % Basophils # (Manual) PT INR APTT Heparin Anti-Xa Level 0.19 L ABG pH POC ABG pO2 ABG pO2 ABG HCO3 ABG O2 Saturation ABG Base Excess POC ABG pCO2 ABG Hemoglobin ABG Oxyhemoglobin ABG Sodium ABG Chloride ABG Glucose Oxyhemoglobin Sodium Potassium Chloride Carbon Dioxide BUN Creatinine Glucose POC Glucose 137 H 128 H Lactic Acid Calcium Phosphorus Magnesium AST ALT Lactate Dehydrogenase Total Bilirubin Direct Bilirubin CK-MB (CK-2) C-Reactive Protein NT-Pro-B Natriuret Pep Total Protein Albumin Arterial Blood Glucose Urine WBC (Auto) Urine Creatinine Digoxin 12/20/19 12/21/19 12/21/19 23:34 05:31 05:31 WBC 12.7 H RBC 3.09 L Hgb 8.9 L Hct 27.4 L MCHC RDW 15.8 H MCV MCH Lymph % (Auto) 12.1 L [place] % (Auto) 7.8 H [place] # Eos # Lymph # (Auto) [place] # (Auto) 1.0 H Eos # (Auto) Seg Neutrophils % 77.1 H Seg Neuts % (Manual) Baso # (Auto) Lymphocytes % (Manual) Monocytes % (Manual) Eosinophils % (Manual) Basophils % (Manual) Seg Neutrophils # 9.8 H Seg Neutrophils # Man Lymphocytes # (Manual) Monocytes # (Manual) Eosinophils # (Manual) Nucleated RBC % Basophils # (Manual) PT INR APTT Heparin Anti-Xa Level ABG pH POC ABG pO2 ABG pO2 ABG HCO3 ABG O2 Saturation ABG Base Excess POC ABG pCO2 ABG Hemoglobin ABG Oxyhemoglobin ABG Sodium ABG Chloride ABG Glucose Oxyhemoglobin Sodium Potassium Chloride 96.9 L Carbon Dioxide 37 H BUN 27 H Creatinine 0.7 L Glucose 140 H POC Glucose 145 H Lactic Acid Calcium Phosphorus Magnesium AST ALT Lactate Dehydrogenase Total Bilirubin Direct Bilirubin CK-MB (CK-2) C-Reactive Protein NT-Pro-B Natriuret Pep Total Protein Albumin Arterial Blood Glucose Urine WBC (Auto) Urine Creatinine Digoxin 12/21/19 12/21/19 12/21/19 05:38 10:13 11:51 WBC RBC Hgb Hct MCHC RDW MCV MCH Lymph % (Auto) [place] % (Auto) [place] # Eos # Lymph # (Auto) [place] # (Auto) Eos # (Auto) Seg Neutrophils % Seg Neuts % (Manual) Baso # (Auto) Lymphocytes % (Manual) Monocytes % (Manual) Eosinophils % (Manual) Basophils % (Manual) Seg Neutrophils # Seg Neutrophils # Man Lymphocytes # (Manual) Monocytes # (Manual) Eosinophils # (Manual) Nucleated RBC % Basophils # (Manual) PT INR APTT 23.9 L Heparin Anti-Xa Level < 0.10 L ABG pH POC ABG pO2 ABG pO2 ABG HCO3 ABG O2 Saturation ABG Base Excess POC ABG pCO2 ABG Hemoglobin ABG Oxyhemoglobin ABG Sodium ABG Chloride ABG Glucose Oxyhemoglobin Sodium Potassium Chloride Carbon Dioxide BUN Creatinine Glucose POC Glucose 151 H 145 H Lactic Acid Calcium Phosphorus Magnesium AST ALT Lactate Dehydrogenase Total Bilirubin Direct Bilirubin CK-MB (CK-2) C-Reactive Protein NT-Pro-B Natriuret Pep Total Protein Albumin Arterial Blood Glucose Urine WBC (Auto) Urine Creatinine Digoxin 12/21/19 12/22/19 12/22/19 17:16 00:01 01:33 WBC RBC Hgb Hct MCHC RDW MCV MCH Lymph % (Auto) [place] % (Auto) [place] # Eos # Lymph # (Auto) [place] # (Auto) Eos # (Auto) Seg Neutrophils % Seg Neuts % (Manual) Baso # (Auto) Lymphocytes % (Manual) Monocytes % (Manual) Eosinophils % (Manual) Basophils % (Manual) Seg Neutrophils # Seg Neutrophils # Man Lymphocytes # (Manual) Monocytes # (Manual) Eosinophils # (Manual) Nucleated RBC % Basophils # (Manual) PT INR APTT Heparin Anti-Xa Level 0.10 L ABG pH POC ABG pO2 ABG pO2 ABG HCO3 ABG O2 Saturation ABG Base Excess POC ABG pCO2 ABG Hemoglobin ABG Oxyhemoglobin ABG Sodium ABG Chloride ABG Glucose Oxyhemoglobin Sodium Potassium Chloride Carbon Dioxide BUN Creatinine Glucose POC Glucose 167 H 179 H Lactic Acid Calcium Phosphorus Magnesium AST ALT Lactate Dehydrogenase Total Bilirubin Direct Bilirubin CK-MB (CK-2) C-Reactive Protein NT-Pro-B Natriuret Pep Total Protein Albumin Arterial Blood Glucose Urine WBC (Auto) Urine Creatinine Digoxin 12/22/19 12/22/19 12/22/19 03:22 05:10 05:10 WBC 13.8 H RBC 3.20 L Hgb 8.9 L Hct 28.1 L MCHC RDW 15.9 H MCV MCH Lymph % (Auto) [place] % (Auto) [place] # Eos # Lymph # (Auto) [place] # (Auto) Eos # (Auto) Seg Neutrophils % Seg Neuts % (Manual) Baso # (Auto) Lymphocytes % (Manual) Monocytes % (Manual) Eosinophils % (Manual) Basophils % (Manual) Seg Neutrophils # Seg Neutrophils # Man Lymphocytes # (Manual) Monocytes # (Manual) Eosinophils # (Manual) Nucleated RBC % Basophils # (Manual) PT INR APTT Heparin Anti-Xa Level ABG pH POC ABG pO2 52.3 L ABG pO2 ABG HCO3 ABG O2 Saturation ABG Base Excess POC ABG pCO2 52.9 H ABG Hemoglobin 10.7 L ABG Oxyhemoglobin 84 L ABG Sodium ABG Chloride ABG Glucose Oxyhemoglobin Sodium Potassium Chloride 96.6 L Carbon Dioxide BUN 25 H Creatinine 0.7 L Glucose 129 H POC Glucose Lactic Acid Calcium Phosphorus Magnesium AST ALT Lactate Dehydrogenase Total Bilirubin Direct Bilirubin CK-MB (CK-2) C-Reactive Protein NT-Pro-B Natriuret Pep Total Protein Albumin Arterial Blood Glucose Urine WBC (Auto) Urine Creatinine Digoxin 12/22/19 12/22/19 12/22/19 05:18 12:32 12:43 WBC RBC Hgb Hct MCHC RDW MCV MCH Lymph % (Auto) [place] % (Auto) [place] # Eos # Lymph # (Auto) [place] # (Auto) Eos # (Auto) Seg Neutrophils % Seg Neuts % (Manual) Baso # (Auto) Lymphocytes % (Manual) Monocytes % (Manual) Eosinophils % (Manual) Basophils % (Manual) Seg Neutrophils # Seg Neutrophils # Man Lymphocytes # (Manual) Monocytes # (Manual) Eosinophils # (Manual) Nucleated RBC % Basophils # (Manual) PT INR APTT Heparin Anti-Xa Level 0.18 L ABG pH POC ABG pO2 ABG pO2 ABG HCO3 ABG O2 Saturation ABG Base Excess POC ABG pCO2 ABG Hemoglobin ABG Oxyhemoglobin ABG Sodium ABG Chloride ABG Glucose Oxyhemoglobin Sodium Potassium Chloride Carbon Dioxide BUN Creatinine Glucose POC Glucose 131 H 208 H Lactic Acid Calcium Phosphorus Magnesium AST ALT Lactate Dehydrogenase Total Bilirubin Direct Bilirubin CK-MB (CK-2) C-Reactive Protein NT-Pro-B Natriuret Pep Total Protein Albumin Arterial Blood Glucose Urine WBC (Auto) Urine Creatinine Digoxin 12/22/19 12/22/19 12/23/19 17:44 23:20 03:51 WBC 15.2 H RBC 3.43 L Hgb 9.6 L Hct 30.3 L MCHC RDW 15.9 H MCV MCH Lymph % (Auto) [place] % (Auto) [place] # Eos # Lymph # (Auto) [place] # (Auto) Eos # (Auto) Seg Neutrophils % Seg Neuts % (Manual) Baso # (Auto) Lymphocytes % (Manual) Monocytes % (Manual) Eosinophils % (Manual) Basophils % (Manual) Seg Neutrophils # Seg Neutrophils # Man Lymphocytes # (Manual) Monocytes # (Manual) Eosinophils # (Manual) Nucleated RBC % Basophils # (Manual) PT INR APTT Heparin Anti-Xa Level ABG pH POC ABG pO2 ABG pO2 ABG HCO3 ABG O2 Saturation ABG Base Excess POC ABG pCO2 ABG Hemoglobin ABG Oxyhemoglobin ABG Sodium ABG Chloride ABG Glucose Oxyhemoglobin Sodium Potassium Chloride Carbon Dioxide BUN Creatinine Glucose POC Glucose 209 H 119 H Lactic Acid Calcium Phosphorus Magnesium AST ALT Lactate Dehydrogenase Total Bilirubin Direct Bilirubin CK-MB (CK-2) C-Reactive Protein NT-Pro-B Natriuret Pep Total Protein Albumin Arterial Blood Glucose Urine WBC (Auto) Urine Creatinine Digoxin 12/23/19 12/23/19 12/23/19 03:51 05:31 12:09 WBC RBC Hgb Hct MCHC RDW MCV MCH Lymph % (Auto) [place] % (Auto) [place] # Eos # Lymph # (Auto) [place] # (Auto) Eos # (Auto) Seg Neutrophils % Seg Neuts % (Manual) Baso # (Auto) Lymphocytes % (Manual) Monocytes % (Manual) Eosinophils % (Manual) Basophils % (Manual) Seg Neutrophils # Seg Neutrophils # Man Lymphocytes # (Manual) Monocytes # (Manual) Eosinophils # (Manual) Nucleated RBC % Basophils # (Manual) PT INR APTT Heparin Anti-Xa Level ABG pH POC ABG pO2 ABG pO2 ABG HCO3 ABG O2 Saturation ABG Base Excess POC ABG pCO2 ABG Hemoglobin ABG Oxyhemoglobin ABG Sodium ABG Chloride ABG Glucose Oxyhemoglobin Sodium Potassium Chloride 97.2 L Carbon Dioxide 31 H BUN 23 H Creatinine 0.6 L Glucose 153 H POC Glucose 149 H 144 H Lactic Acid Calcium Phosphorus Magnesium AST ALT Lactate Dehydrogenase Total Bilirubin Direct Bilirubin CK-MB (CK-2) C-Reactive Protein NT-Pro-B Natriuret Pep Total Protein Albumin Arterial Blood Glucose Urine WBC (Auto) Urine Creatinine Digoxin 12/23/19 12/23/19 12/23/19 15:30 17:49 23:31 WBC RBC Hgb Hct MCHC RDW MCV MCH Lymph % (Auto) [place] % (Auto) [place] # Eos # Lymph # (Auto) [place] # (Auto) Eos # (Auto) Seg Neutrophils % Seg Neuts % (Manual) Baso # (Auto) Lymphocytes % (Manual) Monocytes % (Manual) Eosinophils % (Manual) Basophils % (Manual) Seg Neutrophils # Seg Neutrophils # Man Lymphocytes # (Manual) Monocytes # (Manual) Eosinophils # (Manual) Nucleated RBC % Basophils # (Manual) PT INR APTT Heparin Anti-Xa Level 0.21 L ABG pH POC ABG pO2 ABG pO2 ABG HCO3 ABG O2 Saturation ABG Base Excess POC ABG pCO2 ABG Hemoglobin ABG Oxyhemoglobin ABG Sodium ABG Chloride ABG Glucose Oxyhemoglobin Sodium Potassium Chloride Carbon Dioxide BUN Creatinine Glucose POC Glucose 192 H 151 H Lactic Acid Calcium Phosphorus Magnesium AST ALT Lactate Dehydrogenase Total Bilirubin Direct Bilirubin CK-MB (CK-2) C-Reactive Protein NT-Pro-B Natriuret Pep Total Protein Albumin Arterial Blood Glucose Urine WBC (Auto) Urine Creatinine Digoxin 12/24/19 12/24/19 12/24/19 05:34 12:13 16:50 WBC RBC Hgb Hct MCHC RDW MCV MCH Lymph % (Auto) [place] % (Auto) [place] # Eos # Lymph # (Auto) [place] # (Auto) Eos # (Auto) Seg Neutrophils % Seg Neuts % (Manual) Baso # (Auto) Lymphocytes % (Manual) Monocytes % (Manual) Eosinophils % (Manual) Basophils % (Manual) Seg Neutrophils # Seg Neutrophils # Man Lymphocytes # (Manual) Monocytes # (Manual) Eosinophils # (Manual) Nucleated RBC % Basophils # (Manual) PT INR APTT Heparin Anti-Xa Level 0.16 L ABG pH POC ABG pO2 ABG pO2 ABG HCO3 ABG O2 Saturation ABG Base Excess POC ABG pCO2 ABG Hemoglobin ABG Oxyhemoglobin ABG Sodium ABG Chloride ABG Glucose Oxyhemoglobin Sodium Potassium Chloride Carbon Dioxide BUN Creatinine Glucose POC Glucose 145 H 124 H Lactic Acid Calcium Phosphorus Magnesium AST ALT Lactate Dehydrogenase Total Bilirubin Direct Bilirubin CK-MB (CK-2) C-Reactive Protein NT-Pro-B Natriuret Pep Total Protein Albumin Arterial Blood Glucose Urine WBC (Auto) Urine Creatinine Digoxin 12/24/19 12/25/19 12/25/19 17:53 00:14 04:18 WBC 12.9 H RBC 3.30 L Hgb 9.1 L Hct 28.8 L MCHC RDW 16.4 H MCV MCH Lymph % (Auto) Donley % (Auto) 7.8 H Donley # Eos # Lymph # (Auto) Donley # (Auto) 1.0 H Eos # (Auto) Seg Neutrophils % 75.5 H Seg Neuts % (Manual) Baso # (Auto) Lymphocytes % (Manual) Monocytes % (Manual) Eosinophils % (Manual) Basophils % (Manual) Seg Neutrophils # 9.7 H Seg Neutrophils # Man Lymphocytes # (Manual) Monocytes # (Manual) Eosinophils # (Manual) Nucleated RBC % Basophils # (Manual) PT INR APTT Heparin Anti-Xa Level ABG pH POC ABG pO2 ABG pO2 ABG HCO3 ABG O2 Saturation ABG Base Excess POC ABG pCO2 ABG Hemoglobin ABG Oxyhemoglobin ABG Sodium ABG Chloride ABG Glucose Oxyhemoglobin Sodium Potassium Chloride Carbon Dioxide BUN Creatinine Glucose POC Glucose 164 H 148 H Lactic Acid Calcium Phosphorus Magnesium AST ALT Lactate Dehydrogenase Total Bilirubin Direct Bilirubin CK-MB (CK-2) C-Reactive Protein NT-Pro-B Natriuret Pep Total Protein Albumin Arterial Blood Glucose Urine WBC (Auto) Urine Creatinine Digoxin 12/25/19 12/25/19 12/25/19 04:18 05:38 11:44 WBC RBC Hgb Hct MCHC RDW MCV MCH Lymph % (Auto) [place] % (Auto) [place] # Eos # Lymph # (Auto) [place] # (Auto) Eos # (Auto) Seg Neutrophils % Seg Neuts % (Manual) Baso # (Auto) Lymphocytes % (Manual) Monocytes % (Manual) Eosinophils % (Manual) Basophils % (Manual) Seg Neutrophils # Seg Neutrophils # Man Lymphocytes # (Manual) Monocytes # (Manual) Eosinophils # (Manual) Nucleated RBC % Basophils # (Manual) PT INR APTT Heparin Anti-Xa Level ABG pH POC ABG pO2 ABG pO2 ABG HCO3 ABG O2 Saturation ABG Base Excess POC ABG pCO2 ABG Hemoglobin ABG Oxyhemoglobin ABG Sodium ABG Chloride ABG Glucose Oxyhemoglobin Sodium Potassium Chloride Carbon Dioxide 33 H BUN 27 H Creatinine 0.6 L Glucose 132 H POC Glucose 152 H 166 H Lactic Acid Calcium Phosphorus Magnesium AST ALT Lactate Dehydrogenase Total Bilirubin Direct Bilirubin CK-MB (CK-2) C-Reactive Protein NT-Pro-B Natriuret Pep Total Protein Albumin Arterial Blood Glucose Urine WBC (Auto) Urine Creatinine Digoxin 12/25/19 12/26/19 12/26/19 18:29 00:17 00:18 WBC RBC Hgb Hct MCHC RDW MCV MCH Lymph % (Auto) [place] % (Auto) [place] # Eos # Lymph # (Auto) [place] # (Auto) Eos # (Auto) Seg Neutrophils % Seg Neuts % (Manual) Baso # (Auto) Lymphocytes % (Manual) Monocytes % (Manual) Eosinophils % (Manual) Basophils % (Manual) Seg Neutrophils # Seg Neutrophils # Man Lymphocytes # (Manual) Monocytes # (Manual) Eosinophils # (Manual) Nucleated RBC % Basophils # (Manual) PT INR APTT Heparin Anti-Xa Level ABG pH POC ABG pO2 ABG pO2 ABG HCO3 ABG O2 Saturation ABG Base Excess POC ABG pCO2 ABG Hemoglobin ABG Oxyhemoglobin ABG Sodium ABG Chloride ABG Glucose Oxyhemoglobin Sodium Potassium Chloride 97.8 L Carbon Dioxide BUN 25 H Creatinine 0.6 L Glucose 140 H POC Glucose 194 H 151 H Lactic Acid Calcium Phosphorus Magnesium AST ALT Lactate Dehydrogenase Total Bilirubin Direct Bilirubin CK-MB (CK-2) C-Reactive Protein NT-Pro-B Natriuret Pep Total Protein Albumin Arterial Blood Glucose Urine WBC (Auto) Urine Creatinine Digoxin 12/26/19 12/26/19 12/26/19 05:36 11:41 17:50 WBC RBC Hgb Hct MCHC RDW MCV MCH Lymph % (Auto) [place] % (Auto) [place] # Eos # Lymph # (Auto) [place] # (Auto) Eos # (Auto) Seg Neutrophils % Seg Neuts % (Manual) Baso # (Auto) Lymphocytes % (Manual) Monocytes % (Manual) Eosinophils % (Manual) Basophils % (Manual) Seg Neutrophils # Seg Neutrophils # Man Lymphocytes # (Manual) Monocytes # (Manual) Eosinophils # (Manual) Nucleated RBC % Basophils # (Manual) PT INR APTT Heparin Anti-Xa Level ABG pH POC ABG pO2 ABG pO2 ABG HCO3 ABG O2 Saturation ABG Base Excess POC ABG pCO2 ABG Hemoglobin ABG Oxyhemoglobin ABG Sodium ABG Chloride ABG Glucose Oxyhemoglobin Sodium Potassium Chloride Carbon Dioxide BUN Creatinine Glucose POC Glucose 156 H 148 H 139 H Lactic Acid Calcium Phosphorus Magnesium AST ALT Lactate Dehydrogenase Total Bilirubin Direct Bilirubin CK-MB (CK-2) C-Reactive Protein NT-Pro-B Natriuret Pep Total Protein Albumin Arterial Blood Glucose Urine WBC (Auto) Urine Creatinine Digoxin 12/26/19 12/27/19 12/27/19 23:19 05:34 12:02 WBC RBC Hgb Hct MCHC RDW MCV MCH Lymph % (Auto) [place] % (Auto) [place] # Eos # Lymph # (Auto) [place] # (Auto) Eos # (Auto) Seg Neutrophils % Seg Neuts % (Manual) Baso # (Auto) Lymphocytes % (Manual) Monocytes % (Manual) Eosinophils % (Manual) Basophils % (Manual) Seg Neutrophils # Seg Neutrophils # Man Lymphocytes # (Manual) Monocytes # (Manual) Eosinophils # (Manual) Nucleated RBC % Basophils # (Manual) PT INR APTT Heparin Anti-Xa Level ABG pH POC ABG pO2 ABG pO2 ABG HCO3 ABG O2 Saturation ABG Base Excess POC ABG pCO2 ABG Hemoglobin ABG Oxyhemoglobin ABG Sodium ABG Chloride ABG Glucose Oxyhemoglobin Sodium Potassium Chloride Carbon Dioxide BUN Creatinine Glucose POC Glucose 161 H 145 H 157 H Lactic Acid Calcium Phosphorus Magnesium AST ALT Lactate Dehydrogenase Total Bilirubin Direct Bilirubin CK-MB (CK-2) C-Reactive Protein NT-Pro-B Natriuret Pep Total Protein Albumin Arterial Blood Glucose Urine WBC (Auto) Urine Creatinine Digoxin 12/27/19 12/27/19 12/27/19 17:35 20:11 23:00 WBC RBC Hgb Hct MCHC RDW MCV MCH Lymph % (Auto) [place] % (Auto) [place] # Eos # Lymph # (Auto) [place] # (Auto) Eos # (Auto) Seg Neutrophils % Seg Neuts % (Manual) Baso # (Auto) Lymphocytes % (Manual) Monocytes % (Manual) Eosinophils % (Manual) Basophils % (Manual) Seg Neutrophils # Seg Neutrophils # Man Lymphocytes # (Manual) Monocytes # (Manual) Eosinophils # (Manual) Nucleated RBC % Basophils # (Manual) PT INR APTT Heparin Anti-Xa Level 0.19 L ABG pH POC ABG pO2 ABG pO2 ABG HCO3 ABG O2 Saturation ABG Base Excess POC ABG pCO2 ABG Hemoglobin ABG Oxyhemoglobin ABG Sodium ABG Chloride ABG Glucose Oxyhemoglobin Sodium Potassium Chloride Carbon Dioxide BUN Creatinine Glucose POC Glucose 158 H 155 H Lactic Acid Calcium Phosphorus Magnesium AST ALT Lactate Dehydrogenase Total Bilirubin Direct Bilirubin CK-MB (CK-2) C-Reactive Protein NT-Pro-B Natriuret Pep Total Protein Albumin Arterial Blood Glucose Urine WBC (Auto) Urine Creatinine Digoxin 12/27/19 12/28/19 12/28/19 23:45 02:41 02:41 WBC 13.0 H RBC 3.48 L Hgb 9.5 L Hct 30.6 L MCHC 31 L RDW 16.6 H MCV MCH 27 L Lymph % (Auto) 13.0 L [place] % (Auto) 8.0 H [place] # Eos # Lymph # (Auto) [place] # (Auto) 1.0 H Eos # (Auto) Seg Neutrophils % 76.3 H Seg Neuts % (Manual) Baso # (Auto) Lymphocytes % (Manual) Monocytes % (Manual) Eosinophils % (Manual) Basophils % (Manual) Seg Neutrophils # 9.9 H Seg Neutrophils # Man Lymphocytes # (Manual) Monocytes # (Manual) Eosinophils # (Manual) Nucleated RBC % Basophils # (Manual) PT INR APTT Heparin Anti-Xa Level ABG pH POC ABG pO2 ABG pO2 ABG HCO3 ABG O2 Saturation ABG Base Excess POC ABG pCO2 ABG Hemoglobin ABG Oxyhemoglobin ABG Sodium ABG Chloride ABG Glucose Oxyhemoglobin Sodium Potassium Chloride Carbon Dioxide BUN 22 H Creatinine 0.6 L Glucose 101 H POC Glucose 130 H Lactic Acid Calcium Phosphorus Magnesium AST ALT Lactate Dehydrogenase Total Bilirubin Direct Bilirubin CK-MB (CK-2) C-Reactive Protein NT-Pro-B Natriuret Pep Total Protein Albumin Arterial Blood Glucose Urine WBC (Auto) Urine Creatinine Digoxin 12/28/19 12/28/19 12/28/19 06:00 12:34 18:13 WBC RBC Hgb Hct MCHC RDW MCV MCH Lymph % (Auto) [place] % (Auto) [place] # Eos # Lymph # (Auto) [place] # (Auto) Eos # (Auto) Seg Neutrophils % Seg Neuts % (Manual) Baso # (Auto) Lymphocytes % (Manual) Monocytes % (Manual) Eosinophils % (Manual) Basophils % (Manual) Seg Neutrophils # Seg Neutrophils # Man Lymphocytes # (Manual) Monocytes # (Manual) Eosinophils # (Manual) Nucleated RBC % Basophils # (Manual) PT INR APTT Heparin Anti-Xa Level ABG pH POC ABG pO2 ABG pO2 ABG HCO3 ABG O2 Saturation ABG Base Excess POC ABG pCO2 ABG Hemoglobin ABG Oxyhemoglobin ABG Sodium ABG Chloride ABG Glucose Oxyhemoglobin Sodium Potassium Chloride Carbon Dioxide BUN Creatinine Glucose POC Glucose 150 H 161 H 128 H Lactic Acid Calcium Phosphorus Magnesium AST ALT Lactate Dehydrogenase Total Bilirubin Direct Bilirubin CK-MB (CK-2) C-Reactive Protein NT-Pro-B Natriuret Pep Total Protein Albumin Arterial Blood Glucose Urine WBC (Auto) Urine Creatinine Digoxin 12/28/19 12/29/19 12/29/19 23:36 05:21 11:40 WBC RBC Hgb Hct MCHC RDW MCV MCH Lymph % (Auto) [place] % (Auto) [place] # Eos # Lymph # (Auto) [place] # (Auto) Eos # (Auto) Seg Neutrophils % Seg Neuts % (Manual) Baso # (Auto) Lymphocytes % (Manual) Monocytes % (Manual) Eosinophils % (Manual) Basophils % (Manual) Seg Neutrophils # Seg Neutrophils # Man Lymphocytes # (Manual) Monocytes # (Manual) Eosinophils # (Manual) Nucleated RBC % Basophils # (Manual) PT INR APTT Heparin Anti-Xa Level ABG pH POC ABG pO2 ABG pO2 ABG HCO3 ABG O2 Saturation ABG Base Excess POC ABG pCO2 ABG Hemoglobin ABG Oxyhemoglobin ABG Sodium ABG Chloride ABG Glucose Oxyhemoglobin Sodium Potassium Chloride Carbon Dioxide BUN Creatinine Glucose POC Glucose 137 H 136 H 166 H Lactic Acid Calcium Phosphorus Magnesium AST ALT Lactate Dehydrogenase Total Bilirubin Direct Bilirubin CK-MB (CK-2) C-Reactive Protein NT-Pro-B Natriuret Pep Total Protein Albumin Arterial Blood Glucose Urine WBC (Auto) Urine Creatinine Digoxin 12/29/19 12/29/19 12/29/19 17:23 19:21 23:38 WBC RBC Hgb Hct MCHC RDW MCV MCH Lymph % (Auto) [place] % (Auto) [place] # Eos # Lymph # (Auto) [place] # (Auto) Eos # (Auto) Seg Neutrophils % Seg Neuts % (Manual) Baso # (Auto) Lymphocytes % (Manual) Monocytes % (Manual) Eosinophils % (Manual) Basophils % (Manual) Seg Neutrophils # Seg Neutrophils # Man Lymphocytes # (Manual) Monocytes # (Manual) Eosinophils # (Manual) Nucleated RBC % Basophils # (Manual) PT INR APTT Heparin Anti-Xa Level 0.20 L ABG pH POC ABG pO2 ABG pO2 ABG HCO3 ABG O2 Saturation ABG Base Excess POC ABG pCO2 ABG Hemoglobin ABG Oxyhemoglobin ABG Sodium ABG Chloride ABG Glucose Oxyhemoglobin Sodium Potassium Chloride Carbon Dioxide BUN Creatinine Glucose POC Glucose 144 H 141 H Lactic Acid Calcium Phosphorus Magnesium AST ALT Lactate Dehydrogenase Total Bilirubin Direct Bilirubin CK-MB (CK-2) C-Reactive Protein NT-Pro-B Natriuret Pep Total Protein Albumin Arterial Blood Glucose Urine WBC (Auto) Urine Creatinine Digoxin 12/30/19 12/30/19 12/30/19 03:58 03:58 04:59 WBC RBC 3.54 L Hgb 9.8 L Hct 30.7 L MCHC RDW 16.8 H MCV MCH Lymph % (Auto) [place] % (Auto) [place] # Eos # Lymph # (Auto) [place] # (Auto) Eos # (Auto) Seg Neutrophils % Seg Neuts % (Manual) Baso # (Auto) Lymphocytes % (Manual) Monocytes % (Manual) Eosinophils % (Manual) Basophils % (Manual) Seg Neutrophils # Seg Neutrophils # Man Lymphocytes # (Manual) Monocytes # (Manual) Eosinophils # (Manual) Nucleated RBC % Basophils # (Manual) PT INR APTT Heparin Anti-Xa Level ABG pH POC ABG pO2 ABG pO2 ABG HCO3 29.8 H ABG O2 Saturation ABG Base Excess 4.8 H POC ABG pCO2 ABG Hemoglobin 11.2 L ABG Oxyhemoglobin ABG Sodium ABG Chloride ABG Glucose Oxyhemoglobin 93.8 L Sodium Potassium Chloride 97.8 L Carbon Dioxide BUN 26 H Creatinine Glucose 168 H POC Glucose Lactic Acid Calcium Phosphorus Magnesium AST ALT Lactate Dehydrogenase Total Bilirubin Direct Bilirubin CK-MB (CK-2) C-Reactive Protein NT-Pro-B Natriuret Pep Total Protein Albumin Arterial Blood Glucose Urine WBC (Auto) Urine Creatinine Digoxin 12/30/19 12/30/19 12/30/19 05:45 11:34 17:28 WBC RBC Hgb Hct MCHC RDW MCV MCH Lymph % (Auto) [place] % (Auto) [place] # Eos # Lymph # (Auto) [place] # (Auto) Eos # (Auto) Seg Neutrophils % Seg Neuts % (Manual) Baso # (Auto) Lymphocytes % (Manual) Monocytes % (Manual) Eosinophils % (Manual) Basophils % (Manual) Seg Neutrophils # Seg Neutrophils # Man Lymphocytes # (Manual) Monocytes # (Manual) Eosinophils # (Manual) Nucleated RBC % Basophils # (Manual) PT INR APTT Heparin Anti-Xa Level ABG pH POC ABG pO2 ABG pO2 ABG HCO3 ABG O2 Saturation ABG Base Excess POC ABG pCO2 ABG Hemoglobin ABG Oxyhemoglobin ABG Sodium ABG Chloride ABG Glucose Oxyhemoglobin Sodium Potassium Chloride Carbon Dioxide BUN Creatinine Glucose POC Glucose 163 H 180 H 150 H Lactic Acid Calcium Phosphorus Magnesium AST ALT Lactate Dehydrogenase Total Bilirubin Direct Bilirubin CK-MB (CK-2) C-Reactive Protein NT-Pro-B Natriuret Pep Total Protein Albumin Arterial Blood Glucose Urine WBC (Auto) Urine Creatinine Digoxin 12/30/19 12/31/19 12/31/19 23:43 04:55 05:07 WBC RBC Hgb Hct MCHC RDW MCV MCH Lymph % (Auto) [place] % (Auto) [place] # Eos # Lymph # (Auto) [place] # (Auto) Eos # (Auto) Seg Neutrophils % Seg Neuts % (Manual) Baso # (Auto) Lymphocytes % (Manual) Monocytes % (Manual) Eosinophils % (Manual) Basophils % (Manual) Seg Neutrophils # Seg Neutrophils # Man Lymphocytes # (Manual) Monocytes # (Manual) Eosinophils # (Manual) Nucleated RBC % Basophils # (Manual) PT INR APTT Heparin Anti-Xa Level ABG pH POC ABG pO2 ABG pO2 ABG HCO3 ABG O2 Saturation ABG Base Excess POC ABG pCO2 ABG Hemoglobin ABG Oxyhemoglobin ABG Sodium ABG Chloride ABG Glucose Oxyhemoglobin Sodium Potassium 5.6 H D Chloride Carbon Dioxide BUN 33 H Creatinine Glucose 131 H POC Glucose 142 H 134 H Lactic Acid Calcium Phosphorus Magnesium AST ALT Lactate Dehydrogenase Total Bilirubin Direct Bilirubin CK-MB (CK-2) C-Reactive Protein NT-Pro-B Natriuret Pep Total Protein Albumin Arterial Blood Glucose Urine WBC (Auto) Urine Creatinine Digoxin 12/31/19 12/31/19 12/31/19 11:30 17:19 17:36 WBC RBC Hgb Hct MCHC RDW MCV MCH Lymph % (Auto) [place] % (Auto) [place] # Eos # Lymph # (Auto) [place] # (Auto) Eos # (Auto) Seg Neutrophils % Seg Neuts % (Manual) Baso # (Auto) Lymphocytes % (Manual) Monocytes % (Manual) Eosinophils % (Manual) Basophils % (Manual) Seg Neutrophils # Seg Neutrophils # Man Lymphocytes # (Manual) Monocytes # (Manual) Eosinophils # (Manual) Nucleated RBC % Basophils # (Manual) PT INR APTT Heparin Anti-Xa Level ABG pH POC ABG pO2 ABG pO2 ABG HCO3 ABG O2 Saturation ABG Base Excess POC ABG pCO2 ABG Hemoglobin ABG Oxyhemoglobin ABG Sodium ABG Chloride ABG Glucose Oxyhemoglobin Sodium Potassium Chloride Carbon Dioxide BUN 35 H Creatinine Glucose 156 H POC Glucose 158 H 181 H Lactic Acid Calcium Phosphorus Magnesium AST ALT Lactate Dehydrogenase Total Bilirubin Direct Bilirubin CK-MB (CK-2) C-Reactive Protein NT-Pro-B Natriuret Pep Total Protein Albumin Arterial Blood Glucose Urine WBC (Auto) Urine Creatinine Digoxin 12/31/19 12/31/19 12/31/19 18:16 19:41 21:53 WBC RBC Hgb Hct MCHC RDW MCV MCH Lymph % (Auto) [place] % (Auto) [place] # Eos # Lymph # (Auto) [place] # (Auto) Eos # (Auto) Seg Neutrophils % Seg Neuts % (Manual) Baso # (Auto) Lymphocytes % (Manual) Monocytes % (Manual) Eosinophils % (Manual) Basophils % (Manual) Seg Neutrophils # Seg Neutrophils # Man Lymphocytes # (Manual) Monocytes # (Manual) Eosinophils # (Manual) Nucleated RBC % Basophils # (Manual) PT INR APTT Heparin Anti-Xa Level 0.20 L ABG pH POC ABG pO2 ABG pO2 ABG HCO3 ABG O2 Saturation ABG Base Excess POC ABG pCO2 ABG Hemoglobin ABG Oxyhemoglobin ABG Sodium ABG Chloride ABG Glucose Oxyhemoglobin Sodium Potassium Chloride Carbon Dioxide BUN 34 H Creatinine Glucose 169 H POC Glucose 141 H Lactic Acid Calcium Phosphorus Magnesium AST ALT Lactate Dehydrogenase Total Bilirubin Direct Bilirubin CK-MB (CK-2) C-Reactive Protein NT-Pro-B Natriuret Pep Total Protein Albumin Arterial Blood Glucose Urine WBC (Auto) Urine Creatinine Digoxin 12/31/19 01/01/20 01/01/20 23:51 05:17 10:40 WBC RBC Hgb Hct MCHC RDW MCV MCH Lymph % (Auto) [place] % (Auto) [place] # Eos # Lymph # (Auto) [place] # (Auto) Eos # (Auto) Seg Neutrophils % Seg Neuts % (Manual) Baso # (Auto) Lymphocytes % (Manual) Monocytes % (Manual) Eosinophils % (Manual) Basophils % (Manual) Seg Neutrophils # Seg Neutrophils # Man Lymphocytes # (Manual) Monocytes # (Manual) Eosinophils # (Manual) Nucleated RBC % Basophils # (Manual) PT INR APTT Heparin Anti-Xa Level ABG pH POC ABG pO2 ABG pO2 ABG HCO3 ABG O2 Saturation ABG Base Excess POC ABG pCO2 ABG Hemoglobin ABG Oxyhemoglobin ABG Sodium ABG Chloride ABG Glucose Oxyhemoglobin Sodium Potassium Chloride Carbon Dioxide BUN 31 H Creatinine 0.7 L Glucose 137 H POC Glucose 131 H 155 H Lactic Acid Calcium Phosphorus Magnesium AST 73 H ALT 97 H Lactate Dehydrogenase Total Bilirubin Direct Bilirubin CK-MB (CK-2) C-Reactive Protein NT-Pro-B Natriuret Pep 3866 H Total Protein Albumin 2.8 L Arterial Blood Glucose Urine WBC (Auto) Urine Creatinine Digoxin 01/01/20 01/01/20 01/01/20 12:26 15:33 17:53 WBC 14.3 H RBC 3.35 L Hgb 9.1 L Hct 28.8 L MCHC RDW 17.0 H MCV MCH 27 L Lymph % (Auto) 7.0 L [place] % (Auto) 7.6 H [place] # Eos # Lymph # (Auto) 1.0 L [place] # (Auto) 1.1 H Eos # (Auto) Seg Neutrophils % 83.3 H Seg Neuts % (Manual) Baso # (Auto) Lymphocytes % (Manual) Monocytes % (Manual) Eosinophils % (Manual) Basophils % (Manual) Seg Neutrophils # 12.0 H Seg Neutrophils # Man Lymphocytes # (Manual) Monocytes # (Manual) Eosinophils # (Manual) Nucleated RBC % Basophils # (Manual) PT INR APTT Heparin Anti-Xa Level ABG pH POC ABG pO2 ABG pO2 ABG HCO3 ABG O2 Saturation ABG Base Excess POC ABG pCO2 ABG Hemoglobin ABG Oxyhemoglobin ABG Sodium ABG Chloride ABG Glucose Oxyhemoglobin Sodium Potassium Chloride Carbon Dioxide BUN Creatinine Glucose POC Glucose 128 H 128 H Lactic Acid Calcium Phosphorus Magnesium AST ALT Lactate Dehydrogenase Total Bilirubin Direct Bilirubin CK-MB (CK-2) C-Reactive Protein NT-Pro-B Natriuret Pep Total Protein Albumin Arterial Blood Glucose Urine WBC (Auto) Urine Creatinine Digoxin 10/09/20 10/10/20 10/10/20 23:04 05:39 07:00 WBC RBC Hgb Hct MCHC RDW MCV MCH Lymph % (Auto) [place] % (Auto) [place] # Eos # Lymph # (Auto) [place] # (Auto) Eos # (Auto) Seg Neutrophils % Seg Neuts % (Manual) Baso # (Auto) Lymphocytes % (Manual) Monocytes % (Manual) Eosinophils % (Manual) Basophils % (Manual) Seg Neutrophils # Seg Neutrophils # Man Lymphocytes # (Manual) Monocytes # (Manual) Eosinophils # (Manual) Nucleated RBC % Basophils # (Manual) PT INR APTT Heparin Anti-Xa Level 0.13 L ABG pH POC ABG pO2 ABG pO2 ABG HCO3 ABG O2 Saturation ABG Base Excess POC ABG pCO2 ABG Hemoglobin ABG Oxyhemoglobin ABG Sodium ABG Chloride ABG Glucose Oxyhemoglobin Sodium Potassium Chloride Carbon Dioxide BUN Creatinine Glucose POC Glucose 120 H 169 H Lactic Acid Calcium Phosphorus Magnesium AST ALT Lactate Dehydrogenase Total Bilirubin Direct Bilirubin CK-MB (CK-2) C-Reactive Protein NT-Pro-B Natriuret Pep Total Protein Albumin Arterial Blood Glucose Urine WBC (Auto) Urine Creatinine Digoxin 01/02/20 01/02/20 01/02/20 12:15 14:06 17:58 WBC RBC Hgb Hct MCHC RDW MCV MCH Lymph % (Auto) [place] % (Auto) [place] # Eos # Lymph # (Auto) [place] # (Auto) Eos # (Auto) Seg Neutrophils % Seg Neuts % (Manual) Baso # (Auto) Lymphocytes % (Manual) Monocytes % (Manual) Eosinophils % (Manual) Basophils % (Manual) Seg Neutrophils # Seg Neutrophils # Man Lymphocytes # (Manual) Monocytes # (Manual) Eosinophils # (Manual) Nucleated RBC % Basophils # (Manual) PT INR APTT Heparin Anti-Xa Level < 0.10 L ABG pH POC ABG pO2 ABG pO2 ABG HCO3 ABG O2 Saturation ABG Base Excess POC ABG pCO2 ABG Hemoglobin ABG Oxyhemoglobin ABG Sodium ABG Chloride ABG Glucose Oxyhemoglobin Sodium Potassium Chloride Carbon Dioxide BUN Creatinine Glucose POC Glucose 190 H 198 H Lactic Acid Calcium Phosphorus Magnesium AST ALT Lactate Dehydrogenase Total Bilirubin Direct Bilirubin CK-MB (CK-2) C-Reactive Protein NT-Pro-B Natriuret Pep Total Protein Albumin Arterial Blood Glucose Urine WBC (Auto) Urine Creatinine Digoxin 01/02/20 01/02/20 01/03/20 21:43 23:33 05:42 WBC RBC Hgb Hct MCHC RDW MCV MCH Lymph % (Auto) [place] % (Auto) [place] # Eos # Lymph # (Auto) [place] # (Auto) Eos # (Auto) Seg Neutrophils % Seg Neuts % (Manual) Baso # (Auto) Lymphocytes % (Manual) Monocytes % (Manual) Eosinophils % (Manual) Basophils % (Manual) Seg Neutrophils # Seg Neutrophils # Man Lymphocytes # (Manual) Monocytes # (Manual) Eosinophils # (Manual) Nucleated RBC % Basophils # (Manual) PT INR APTT Heparin Anti-Xa Level 0.10 L ABG pH POC ABG pO2 ABG pO2 ABG HCO3 ABG O2 Saturation ABG Base Excess POC ABG pCO2 ABG Hemoglobin ABG Oxyhemoglobin ABG Sodium ABG Chloride ABG Glucose Oxyhemoglobin Sodium Potassium Chloride Carbon Dioxide BUN Creatinine Glucose POC Glucose 180 H 163 H Lactic Acid Calcium Phosphorus Magnesium AST ALT Lactate Dehydrogenase Total Bilirubin Direct Bilirubin CK-MB (CK-2) C-Reactive Protein NT-Pro-B Natriuret Pep Total Protein Albumin Arterial Blood Glucose Urine WBC (Auto) Urine Creatinine Digoxin 01/03/20 01/03/20 01/03/20 06:50 07:25 07:45 WBC 12.1 H RBC 3.35 L Hgb 9.0 L Hct 28.9 L MCHC 31 L RDW 16.6 H MCV MCH 27 L Lymph % (Auto) 13.0 L [place] % (Auto) 8.6 H [place] # Eos # Lymph # (Auto) [place] # (Auto) 1.0 H Eos # (Auto) Seg Neutrophils % 75.9 H Seg Neuts % (Manual) Baso # (Auto) Lymphocytes % (Manual) Monocytes % (Manual) Eosinophils % (Manual) Basophils % (Manual) Seg Neutrophils # 9.2 H Seg Neutrophils # Man Lymphocytes # (Manual) Monocytes # (Manual) Eosinophils # (Manual) Nucleated RBC % Basophils # (Manual) PT INR APTT Heparin Anti-Xa Level 0.29 L ABG pH POC ABG pO2 ABG pO2 ABG HCO3 ABG O2 Saturation ABG Base Excess POC ABG pCO2 ABG Hemoglobin ABG Oxyhemoglobin ABG Sodium ABG Chloride ABG Glucose Oxyhemoglobin Sodium Potassium 3.3 L D Chloride Carbon Dioxide 35 H D BUN 23 H Creatinine 0.6 L Glucose 149 H POC Glucose Lactic Acid Calcium Phosphorus Magnesium AST ALT 88 H Lactate Dehydrogenase Total Bilirubin Direct Bilirubin CK-MB (CK-2) C-Reactive Protein NT-Pro-B Natriuret Pep Total Protein 6.2 L Albumin 2.9 L Arterial Blood Glucose Urine WBC (Auto) Urine Creatinine Digoxin 01/03/20 01/03/20 01/03/20 12:05 17:42 18:30 WBC RBC Hgb Hct MCHC RDW MCV MCH Lymph % (Auto) [place] % (Auto) [place] # Eos # Lymph # (Auto) [place] # (Auto) Eos # (Auto) Seg Neutrophils % Seg Neuts % (Manual) Baso # (Auto) Lymphocytes % (Manual) Monocytes % (Manual) Eosinophils % (Manual) Basophils % (Manual) Seg Neutrophils # Seg Neutrophils # Man Lymphocytes # (Manual) Monocytes # (Manual) Eosinophils # (Manual) Nucleated RBC % Basophils # (Manual) PT INR APTT Heparin Anti-Xa Level ABG pH POC ABG pO2 ABG pO2 70.7 L ABG HCO3 36.1 H ABG O2 Saturation 94.4 L ABG Base Excess 10.0 H POC ABG pCO2 ABG Hemoglobin 9.7 L ABG Oxyhemoglobin ABG Sodium ABG Chloride ABG Glucose Oxyhemoglobin 91.8 L Sodium Potassium Chloride Carbon Dioxide BUN Creatinine Glucose POC Glucose 128 H 132 H Lactic Acid Calcium Phosphorus Magnesium AST ALT Lactate Dehydrogenase Total Bilirubin Direct Bilirubin CK-MB (CK-2) C-Reactive Protein NT-Pro-B Natriuret Pep Total Protein Albumin Arterial Blood Glucose Urine WBC (Auto) Urine Creatinine Digoxin 01/04/20 01/04/20 01/04/20 00:10 04:26 05:23 WBC RBC Hgb Hct MCHC RDW MCV MCH Lymph % (Auto) [place] % (Auto) [place] # Eos # Lymph # (Auto) [place] # (Auto) Eos # (Auto) Seg Neutrophils % Seg Neuts % (Manual) Baso # (Auto) Lymphocytes % (Manual) Monocytes % (Manual) Eosinophils % (Manual) Basophils % (Manual) Seg Neutrophils # Seg Neutrophils # Man Lymphocytes # (Manual) Monocytes # (Manual) Eosinophils # (Manual) Nucleated RBC % Basophils # (Manual) PT INR APTT Heparin Anti-Xa Level 0.16 L ABG pH POC ABG pO2 ABG pO2 ABG HCO3 ABG O2 Saturation ABG Base Excess POC ABG pCO2 ABG Hemoglobin ABG Oxyhemoglobin ABG Sodium ABG Chloride ABG Glucose Oxyhemoglobin Sodium Potassium Chloride Carbon Dioxide BUN Creatinine Glucose POC Glucose 121 H 119 H Lactic Acid Calcium Phosphorus Magnesium AST ALT Lactate Dehydrogenase Total Bilirubin Direct Bilirubin CK-MB (CK-2) C-Reactive Protein NT-Pro-B Natriuret Pep Total Protein Albumin Arterial Blood Glucose Urine WBC (Auto) Urine Creatinine Digoxin 01/04/20 01/04/20 01/04/20 09:50 09:50 12:18 WBC 15.4 H RBC 3.30 L Hgb 8.7 L Hct 28.2 L MCHC 31 L RDW 17.0 H MCV MCH 26 L Lymph % (Auto) Donley % (Auto) 7.6 H Donley # Eos # Lymph # (Auto) Donley # (Auto) 1.2 H Eos # (Auto) Seg Neutrophils % 75.4 H Seg Neuts % (Manual) Baso # (Auto) Lymphocytes % (Manual) Monocytes % (Manual) Eosinophils % (Manual) Basophils % (Manual) Seg Neutrophils # 11.6 H Seg Neutrophils # Man Lymphocytes # (Manual) Monocytes # (Manual) Eosinophils # (Manual) Nucleated RBC % Basophils # (Manual) PT INR APTT Heparin Anti-Xa Level ABG pH POC ABG pO2 ABG pO2 ABG HCO3 ABG O2 Saturation ABG Base Excess POC ABG pCO2 ABG Hemoglobin ABG Oxyhemoglobin ABG Sodium ABG Chloride ABG Glucose Oxyhemoglobin Sodium 148 H Potassium 3.5 L Chloride Carbon Dioxide 32 H BUN Creatinine 0.6 L Glucose 114 H POC Glucose 111 H Lactic Acid Calcium Phosphorus Magnesium AST ALT 59 H Lactate Dehydrogenase Total Bilirubin Direct Bilirubin CK-MB (CK-2) C-Reactive Protein NT-Pro-B Natriuret Pep Total Protein Albumin 2.6 L Arterial Blood Glucose Urine WBC (Auto) Urine Creatinine Digoxin 01/05/20 01/05/20 01/05/20 04:05 04:05 05:19 WBC 11.7 H RBC 3.50 L Hgb 9.3 L Hct 29.9 L MCHC 31 L RDW 16.6 H MCV MCH 27 L Lymph % (Auto) 13.1 L [place] % (Auto) 9.7 H [place] # Eos # Lymph # (Auto) [place] # (Auto) 1.1 H Eos # (Auto) Seg Neutrophils % 74.0 H Seg Neuts % (Manual) Baso # (Auto) Lymphocytes % (Manual) Monocytes % (Manual) Eosinophils % (Manual) Basophils % (Manual) Seg Neutrophils # 8.6 H Seg Neutrophils # Man Lymphocytes # (Manual) Monocytes # (Manual) Eosinophils # (Manual) Nucleated RBC % Basophils # (Manual) PT INR APTT Heparin Anti-Xa Level ABG pH POC ABG pO2 ABG pO2 ABG HCO3 ABG O2 Saturation ABG Base Excess POC ABG pCO2 ABG Hemoglobin ABG Oxyhemoglobin ABG Sodium ABG Chloride ABG Glucose Oxyhemoglobin Sodium 151 H Potassium Chloride Carbon Dioxide 34 H BUN Creatinine 0.7 L Glucose POC Glucose 112 H Lactic Acid Calcium Phosphorus Magnesium AST ALT 59 H Lactate Dehydrogenase Total Bilirubin Direct Bilirubin CK-MB (CK-2) C-Reactive Protein NT-Pro-B Natriuret Pep Total Protein 5.8 L Albumin 2.6 L Arterial Blood Glucose Urine WBC (Auto) Urine Creatinine Digoxin 01/05/20 01/06/20 01/06/20 16:04 00:23 04:44 WBC RBC 3.36 L Hgb 8.9 L Hct 28.7 L MCHC 31 L RDW 16.9 H MCV MCH 26 L Lymph % (Auto) [place] % (Auto) 9.4 H [place] # Eos # Lymph # (Auto) [place] # (Auto) Eos # (Auto) Seg Neutrophils % Seg Neuts % (Manual) Baso # (Auto) Lymphocytes % (Manual) Monocytes % (Manual) Eosinophils % (Manual) Basophils % (Manual) Seg Neutrophils # Seg Neutrophils # Man Lymphocytes # (Manual) Monocytes # (Manual) Eosinophils # (Manual) Nucleated RBC % Basophils # (Manual) PT INR APTT Heparin Anti-Xa Level ABG pH POC ABG pO2 ABG pO2 ABG HCO3 ABG O2 Saturation ABG Base Excess POC ABG pCO2 ABG Hemoglobin ABG Oxyhemoglobin ABG Sodium ABG Chloride ABG Glucose Oxyhemoglobin Sodium 151 H Potassium 3.2 L Chloride Carbon Dioxide 34 H BUN Creatinine 0.6 L Glucose POC Glucose 107 H Lactic Acid Calcium Phosphorus Magnesium AST ALT Lactate Dehydrogenase Total Bilirubin Direct Bilirubin CK-MB (CK-2) C-Reactive Protein NT-Pro-B Natriuret Pep Total Protein Albumin Arterial Blood Glucose Urine WBC (Auto) Urine Creatinine Digoxin 10/14/20 10/14/20 10/14/20 04:44 05:33 12:04 WBC RBC Hgb Hct MCHC RDW MCV MCH Lymph % (Auto) [place] % (Auto) [place] # Eos # Lymph # (Auto) [place] # (Auto) Eos # (Auto) Seg Neutrophils % Seg Neuts % (Manual) Baso # (Auto) Lymphocytes % (Manual) Monocytes % (Manual) Eosinophils % (Manual) Basophils % (Manual) Seg Neutrophils # Seg Neutrophils # Man Lymphocytes # (Manual) Monocytes # (Manual) Eosinophils # (Manual) Nucleated RBC % Basophils # (Manual) PT INR APTT Heparin Anti-Xa Level ABG pH POC ABG pO2 ABG pO2 ABG HCO3 ABG O2 Saturation ABG Base Excess POC ABG pCO2 ABG Hemoglobin ABG Oxyhemoglobin ABG Sodium ABG Chloride ABG Glucose Oxyhemoglobin Sodium 151 H Potassium 3.4 L Chloride Carbon Dioxide 33 H BUN Creatinine 0.6 L Glucose 118 H POC Glucose 118 H 123 H Lactic Acid Calcium Phosphorus Magnesium AST ALT Lactate Dehydrogenase Total Bilirubin Direct Bilirubin CK-MB (CK-2) C-Reactive Protein NT-Pro-B Natriuret Pep Total Protein 6.2 L Albumin 2.6 L Arterial Blood Glucose Urine WBC (Auto) Urine Creatinine Digoxin 01/06/20 01/07/20 01/07/20 17:54 00:06 04:10 WBC RBC 3.42 L Hgb 8.9 L Hct 29.0 L MCHC 31 L RDW 17.1 H MCV MCH 26 L Lymph % (Auto) [place] % (Auto) 8.4 H [place] # Eos # Lymph # (Auto) [place] # (Auto) Eos # (Auto) Seg Neutrophils % Seg Neuts % (Manual) Baso # (Auto) Lymphocytes % (Manual) Monocytes % (Manual) Eosinophils % (Manual) Basophils % (Manual) Seg Neutrophils # Seg Neutrophils # Man Lymphocytes # (Manual) Monocytes # (Manual) Eosinophils # (Manual) Nucleated RBC % Basophils # (Manual) PT INR APTT Heparin Anti-Xa Level ABG pH POC ABG pO2 ABG pO2 ABG HCO3 ABG O2 Saturation ABG Base Excess POC ABG pCO2 ABG Hemoglobin ABG Oxyhemoglobin ABG Sodium ABG Chloride ABG Glucose Oxyhemoglobin Sodium Potassium Chloride Carbon Dioxide BUN Creatinine Glucose POC Glucose 112 H 126 H Lactic Acid Calcium Phosphorus Magnesium AST ALT Lactate Dehydrogenase Total Bilirubin Direct Bilirubin CK-MB (CK-2) C-Reactive Protein NT-Pro-B Natriuret Pep Total Protein Albumin Arterial Blood Glucose Urine WBC (Auto) Urine Creatinine Digoxin 01/07/20 01/07/20 01/07/20 04:10 05:59 12:27 WBC RBC Hgb Hct MCHC RDW MCV MCH Lymph % (Auto) [place] % (Auto) [place] # Eos # Lymph # (Auto) [place] # (Auto) Eos # (Auto) Seg Neutrophils % Seg Neuts % (Manual) Baso # (Auto) Lymphocytes % (Manual) Monocytes % (Manual) Eosinophils % (Manual) Basophils % (Manual) Seg Neutrophils # Seg Neutrophils # Man Lymphocytes # (Manual) Monocytes # (Manual) Eosinophils # (Manual) Nucleated RBC % Basophils # (Manual) PT INR APTT Heparin Anti-Xa Level ABG pH POC ABG pO2 ABG pO2 ABG HCO3 ABG O2 Saturation ABG Base Excess POC ABG pCO2 ABG Hemoglobin ABG Oxyhemoglobin ABG Sodium ABG Chloride ABG Glucose Oxyhemoglobin Sodium 153 H Potassium 3.5 L Chloride Carbon Dioxide 34 H BUN Creatinine 0.6 L Glucose 121 H POC Glucose 121 H 126 H Lactic Acid Calcium Phosphorus Magnesium AST ALT Lactate Dehydrogenase Total Bilirubin Direct Bilirubin CK-MB (CK-2) C-Reactive Protein NT-Pro-B Natriuret Pep Total Protein 5.9 L Albumin 2.4 L Arterial Blood Glucose Urine WBC (Auto) Urine Creatinine Digoxin 01/07/20 01/08/20 01/08/20 18:12 00:03 05:41 WBC RBC Hgb Hct MCHC RDW MCV MCH Lymph % (Auto) [place] % (Auto) [place] # Eos # Lymph # (Auto) [place] # (Auto) Eos # (Auto) Seg Neutrophils % Seg Neuts % (Manual) Baso # (Auto) Lymphocytes % (Manual) Monocytes % (Manual) Eosinophils % (Manual) Basophils % (Manual) Seg Neutrophils # Seg Neutrophils # Man Lymphocytes # (Manual) Monocytes # (Manual) Eosinophils # (Manual) Nucleated RBC % Basophils # (Manual) PT INR APTT Heparin Anti-Xa Level ABG pH POC ABG pO2 ABG pO2 ABG HCO3 ABG O2 Saturation ABG Base Excess POC ABG pCO2 ABG Hemoglobin ABG Oxyhemoglobin ABG Sodium ABG Chloride ABG Glucose Oxyhemoglobin Sodium Potassium Chloride Carbon Dioxide BUN Creatinine Glucose POC Glucose 124 H 130 H 138 H Lactic Acid Calcium Phosphorus Magnesium AST ALT Lactate Dehydrogenase Total Bilirubin Direct Bilirubin CK-MB (CK-2) C-Reactive Protein NT-Pro-B Natriuret Pep Total Protein Albumin Arterial Blood Glucose Urine WBC (Auto) Urine Creatinine Digoxin 01/08/20 01/08/20 01/08/20 09:28 11:42 18:21 WBC RBC Hgb Hct MCHC RDW MCV MCH Lymph % (Auto) [place] % (Auto) [place] # Eos # Lymph # (Auto) [place] # (Auto) Eos # (Auto) Seg Neutrophils % Seg Neuts % (Manual) Baso # (Auto) Lymphocytes % (Manual) Monocytes % (Manual) Eosinophils % (Manual) Basophils % (Manual) Seg Neutrophils # Seg Neutrophils # Man Lymphocytes # (Manual) Monocytes # (Manual) Eosinophils # (Manual) Nucleated RBC % Basophils # (Manual) PT INR APTT Heparin Anti-Xa Level ABG pH POC ABG pO2 ABG pO2 ABG HCO3 ABG O2 Saturation ABG Base Excess POC ABG pCO2 ABG Hemoglobin ABG Oxyhemoglobin ABG Sodium ABG Chloride ABG Glucose Oxyhemoglobin Sodium Potassium Chloride Carbon Dioxide BUN Creatinine Glucose POC Glucose 181 H 150 H 129 H Lactic Acid Calcium Phosphorus Magnesium AST ALT Lactate Dehydrogenase Total Bilirubin Direct Bilirubin CK-MB (CK-2) C-Reactive Protein NT-Pro-B Natriuret Pep Total Protein Albumin Arterial Blood Glucose Urine WBC (Auto) Urine Creatinine Digoxin 01/08/20 01/08/20 01/09/20 19:25 23:55 04:11 WBC RBC 3.43 L Hgb 8.9 L Hct 28.7 L MCHC 31 L RDW 17.6 H MCV MCH 26 L Lymph % (Auto) [place] % (Auto) 8.6 H [place] # Eos # Lymph # (Auto) [place] # (Auto) Eos # (Auto) Seg Neutrophils % Seg Neuts % (Manual) Baso # (Auto) Lymphocytes % (Manual) Monocytes % (Manual) Eosinophils % (Manual) Basophils % (Manual) Seg Neutrophils # Seg Neutrophils # Man Lymphocytes # (Manual) Monocytes # (Manual) Eosinophils # (Manual) Nucleated RBC % Basophils # (Manual) PT INR APTT Heparin Anti-Xa Level ABG pH POC ABG pO2 ABG pO2 ABG HCO3 ABG O2 Saturation ABG Base Excess POC ABG pCO2 ABG Hemoglobin ABG Oxyhemoglobin ABG Sodium ABG Chloride ABG Glucose Oxyhemoglobin Sodium Potassium Chloride Carbon Dioxide BUN Creatinine 0.7 L Glucose 117 H POC Glucose 132 H Lactic Acid Calcium Phosphorus Magnesium AST ALT Lactate Dehydrogenase Total Bilirubin Direct Bilirubin CK-MB (CK-2) C-Reactive Protein NT-Pro-B Natriuret Pep Total Protein Albumin Arterial Blood Glucose Urine WBC (Auto) Urine Creatinine Digoxin 01/09/20 01/09/20 01/09/20 04:11 05:38 22:58 WBC RBC Hgb Hct MCHC RDW MCV MCH Lymph % (Auto) [place] % (Auto) [place] # Eos # Lymph # (Auto) [place] # (Auto) Eos # (Auto) Seg Neutrophils % Seg Neuts % (Manual) Baso # (Auto) Lymphocytes % (Manual) Monocytes % (Manual) Eosinophils % (Manual) Basophils % (Manual) Seg Neutrophils # Seg Neutrophils # Man Lymphocytes # (Manual) Monocytes # (Manual) Eosinophils # (Manual) Nucleated RBC % Basophils # (Manual) PT INR APTT Heparin Anti-Xa Level ABG pH POC ABG pO2 ABG pO2 ABG HCO3 ABG O2 Saturation ABG Base Excess POC ABG pCO2 ABG Hemoglobin ABG Oxyhemoglobin ABG Sodium ABG Chloride ABG Glucose Oxyhemoglobin Sodium 147 H Potassium 3.3 L D Chloride Carbon Dioxide 32 H BUN Creatinine 0.6 L Glucose 106 H POC Glucose 107 H 113 H Lactic Acid Calcium Phosphorus Magnesium AST ALT Lactate Dehydrogenase Total Bilirubin Direct Bilirubin CK-MB (CK-2) C-Reactive Protein NT-Pro-B Natriuret Pep Total Protein Albumin Arterial Blood Glucose Urine WBC (Auto) Urine Creatinine Digoxin 01/10/20 01/10/20 01/10/20 04:05 11:36 17:54 WBC RBC Hgb Hct MCHC RDW MCV MCH Lymph % (Auto) [place] % (Auto) [place] # Eos # Lymph # (Auto) [place] # (Auto) Eos # (Auto) Seg Neutrophils % Seg Neuts % (Manual) Baso # (Auto) Lymphocytes % (Manual) Monocytes % (Manual) Eosinophils % (Manual) Basophils % (Manual) Seg Neutrophils # Seg Neutrophils # Man Lymphocytes # (Manual) Monocytes # (Manual) Eosinophils # (Manual) Nucleated RBC % Basophils # (Manual) PT INR APTT Heparin Anti-Xa Level ABG pH POC ABG pO2 ABG pO2 ABG HCO3 ABG O2 Saturation ABG Base Excess POC ABG pCO2 ABG Hemoglobin ABG Oxyhemoglobin ABG Sodium ABG Chloride ABG Glucose Oxyhemoglobin Sodium Potassium Chloride Carbon Dioxide BUN Creatinine 0.7 L Glucose 110 H POC Glucose 129 H 117 H Lactic Acid Calcium Phosphorus Magnesium AST ALT Lactate Dehydrogenase Total Bilirubin Direct Bilirubin CK-MB (CK-2) C-Reactive Protein NT-Pro-B Natriuret Pep Total Protein Albumin Arterial Blood Glucose Urine WBC (Auto) Urine Creatinine Digoxin 01/10/20 01/11/20 01/11/20 23:52 03:19 12:09 WBC RBC Hgb Hct MCHC RDW MCV MCH Lymph % (Auto) [place] % (Auto) [place] # Eos # Lymph # (Auto) [place] # (Auto) Eos # (Auto) Seg Neutrophils % Seg Neuts % (Manual) Baso # (Auto) Lymphocytes % (Manual) Monocytes % (Manual) Eosinophils % (Manual) Basophils % (Manual) Seg Neutrophils # Seg Neutrophils # Man Lymphocytes # (Manual) Monocytes # (Manual) Eosinophils # (Manual) Nucleated RBC % Basophils # (Manual) PT INR APTT Heparin Anti-Xa Level ABG pH POC ABG pO2 ABG pO2 ABG HCO3 ABG O2 Saturation ABG Base Excess POC ABG pCO2 ABG Hemoglobin ABG Oxyhemoglobin ABG Sodium ABG Chloride ABG Glucose Oxyhemoglobin Sodium Potassium Chloride Carbon Dioxide BUN Creatinine Glucose POC Glucose 117 H 136 H 115 H Lactic Acid Calcium Phosphorus Magnesium AST ALT Lactate Dehydrogenase Total Bilirubin Direct Bilirubin CK-MB (CK-2) C-Reactive Protein NT-Pro-B Natriuret Pep Total Protein Albumin Arterial Blood Glucose Urine WBC (Auto) Urine Creatinine Digoxin 01/11/20 01/11/20 01/12/20 18:27 23:28 00:23 WBC RBC Hgb 9.8 L Hct 31.6 L MCHC 31 L RDW 17.8 H MCV 83 L MCH 26 L Lymph % (Auto) [place] % (Auto) 8.0 H [place] # Eos # Lymph # (Auto) [place] # (Auto) Eos # (Auto) Seg Neutrophils % Seg Neuts % (Manual) Baso # (Auto) Lymphocytes % (Manual) Monocytes % (Manual) Eosinophils % (Manual) Basophils % (Manual) Seg Neutrophils # Seg Neutrophils # Man Lymphocytes # (Manual) Monocytes # (Manual) Eosinophils # (Manual) Nucleated RBC % Basophils # (Manual) PT INR APTT Heparin Anti-Xa Level ABG pH POC ABG pO2 ABG pO2 ABG HCO3 ABG O2 Saturation ABG Base Excess POC ABG pCO2 ABG Hemoglobin ABG Oxyhemoglobin ABG Sodium ABG Chloride ABG Glucose Oxyhemoglobin Sodium Potassium Chloride Carbon Dioxide BUN Creatinine Glucose POC Glucose 118 H 122 H Lactic Acid Calcium Phosphorus Magnesium AST ALT Lactate Dehydrogenase Total Bilirubin Direct Bilirubin CK-MB (CK-2) C-Reactive Protein NT-Pro-B Natriuret Pep Total Protein Albumin Arterial Blood Glucose Urine WBC (Auto) Urine Creatinine Digoxin 01/12/20 01/12/20 01/12/20 00:23 04:18 04:18 WBC RBC Hgb 9.6 L Hct 30.9 L MCHC 31 L RDW 17.3 H MCV 81 L MCH 25 L Lymph % (Auto) [place] % (Auto) [place] # Eos # Lymph # (Auto) [place] # (Auto) Eos # (Auto) Seg Neutrophils % Seg Neuts % (Manual) Baso # (Auto) Lymphocytes % (Manual) Monocytes % (Manual) Eosinophils % (Manual) Basophils % (Manual) Seg Neutrophils # Seg Neutrophils # Man Lymphocytes # (Manual) Monocytes # (Manual) Eosinophils # (Manual) Nucleated RBC % Basophils # (Manual) PT INR APTT Heparin Anti-Xa Level ABG pH POC ABG pO2 ABG pO2 ABG HCO3 ABG O2 Saturation ABG Base Excess POC ABG pCO2 ABG Hemoglobin ABG Oxyhemoglobin ABG Sodium ABG Chloride ABG Glucose Oxyhemoglobin Sodium Potassium Chloride Carbon Dioxide BUN Creatinine 0.7 L 0.7 L Glucose 111 H 108 H POC Glucose Lactic Acid Calcium Phosphorus Magnesium AST ALT Lactate Dehydrogenase Total Bilirubin Direct Bilirubin CK-MB (CK-2) C-Reactive Protein NT-Pro-B Natriuret Pep Total Protein Albumin 2.6 L Arterial Blood Glucose Urine WBC (Auto) Urine Creatinine Digoxin 01/12/20 01/12/20 01/12/20 06:03 12:27 13:58 WBC RBC Hgb Hct MCHC RDW MCV MCH Lymph % (Auto) [place] % (Auto) [place] # Eos # Lymph # (Auto) [place] # (Auto) Eos # (Auto) Seg Neutrophils % Seg Neuts % (Manual) Baso # (Auto) Lymphocytes % (Manual) Monocytes % (Manual) Eosinophils % (Manual) Basophils % (Manual) Seg Neutrophils # Seg Neutrophils # Man Lymphocytes # (Manual) Monocytes # (Manual) Eosinophils # (Manual) Nucleated RBC % Basophils # (Manual) PT INR APTT Heparin Anti-Xa Level ABG pH 7.453 H POC ABG pO2 76.6 L ABG pO2 ABG HCO3 ABG O2 Saturation ABG Base Excess POC ABG pCO2 ABG Hemoglobin 10.3 L ABG Oxyhemoglobin ABG Sodium ABG Chloride ABG Glucose 99 H Oxyhemoglobin Sodium Potassium Chloride Carbon Dioxide BUN Creatinine Glucose POC Glucose 128 H 121 H Lactic Acid Calcium Phosphorus Magnesium AST ALT Lactate Dehydrogenase Total Bilirubin Direct Bilirubin CK-MB (CK-2) C-Reactive Protein NT-Pro-B Natriuret Pep Total Protein Albumin Arterial Blood Glucose 99 H Urine WBC (Auto) Urine Creatinine Digoxin 01/12/20 01/13/20 01/13/20 18:24 12:01 17:46 WBC RBC Hgb Hct MCHC RDW MCV MCH Lymph % (Auto) [place] % (Auto) [place] # Eos # Lymph # (Auto) [place] # (Auto) Eos # (Auto) Seg Neutrophils % Seg Neuts % (Manual) Baso # (Auto) Lymphocytes % (Manual) Monocytes % (Manual) Eosinophils % (Manual) Basophils % (Manual) Seg Neutrophils # Seg Neutrophils # Man Lymphocytes # (Manual) Monocytes # (Manual) Eosinophils # (Manual) Nucleated RBC % Basophils # (Manual) PT INR APTT Heparin Anti-Xa Level ABG pH POC ABG pO2 ABG pO2 ABG HCO3 ABG O2 Saturation ABG Base Excess POC ABG pCO2 ABG Hemoglobin ABG Oxyhemoglobin ABG Sodium ABG Chloride ABG Glucose Oxyhemoglobin Sodium Potassium Chloride Carbon Dioxide BUN Creatinine Glucose POC Glucose 119 H 107 H 124 H Lactic Acid Calcium Phosphorus Magnesium AST ALT Lactate Dehydrogenase Total Bilirubin Direct Bilirubin CK-MB (CK-2) C-Reactive Protein NT-Pro-B Natriuret Pep Total Protein Albumin Arterial Blood Glucose Urine WBC (Auto) Urine Creatinine Digoxin 01/13/20 01/14/20 01/14/20 20:40 00:10 05:33 WBC RBC Hgb Hct MCHC RDW MCV MCH Lymph % (Auto) [place] % (Auto) [place] # Eos # Lymph # (Auto) [place] # (Auto) Eos # (Auto) Seg Neutrophils % Seg Neuts % (Manual) Baso # (Auto) Lymphocytes % (Manual) Monocytes % (Manual) Eosinophils % (Manual) Basophils % (Manual) Seg Neutrophils # Seg Neutrophils # Man Lymphocytes # (Manual) Monocytes # (Manual) Eosinophils # (Manual) Nucleated RBC % Basophils # (Manual) PT INR APTT Heparin Anti-Xa Level ABG pH POC ABG pO2 ABG pO2 65.3 L ABG HCO3 31.8 H ABG O2 Saturation 93.5 L ABG Base Excess 6.7 H POC ABG pCO2 ABG Hemoglobin 13.3 L ABG Oxyhemoglobin ABG Sodium ABG Chloride ABG Glucose Oxyhemoglobin 90.9 L Sodium Potassium Chloride Carbon Dioxide BUN Creatinine Glucose POC Glucose 111 H 111 H Lactic Acid Calcium Phosphorus Magnesium AST ALT Lactate Dehydrogenase Total Bilirubin Direct Bilirubin CK-MB (CK-2) C-Reactive Protein NT-Pro-B Natriuret Pep Total Protein Albumin Arterial Blood Glucose Urine WBC (Auto) Urine Creatinine Digoxin 01/14/20 01/14/20 01/14/20 12:10 16:14 16:14 WBC RBC Hgb 10.6 L Hct 34.2 L MCHC 31 L RDW 18.3 H MCV 83 L MCH 26 L Lymph % (Auto) [place] % (Auto) 7.4 H [place] # Eos # Lymph # (Auto) [place] # (Auto) Eos # (Auto) Seg Neutrophils % 71.9 H Seg Neuts % (Manual) Baso # (Auto) Lymphocytes % (Manual) Monocytes % (Manual) Eosinophils % (Manual) Basophils % (Manual) Seg Neutrophils # Seg Neutrophils # Man Lymphocytes # (Manual) Monocytes # (Manual) Eosinophils # (Manual) Nucleated RBC % Basophils # (Manual) PT INR APTT Heparin Anti-Xa Level ABG pH POC ABG pO2 ABG pO2 ABG HCO3 ABG O2 Saturation ABG Base Excess POC ABG pCO2 ABG Hemoglobin ABG Oxyhemoglobin ABG Sodium ABG Chloride ABG Glucose Oxyhemoglobin Sodium Potassium Chloride Carbon Dioxide 31 H BUN Creatinine 0.6 L Glucose 131 H POC Glucose 139 H Lactic Acid Calcium Phosphorus Magnesium AST ALT Lactate Dehydrogenase Total Bilirubin Direct Bilirubin CK-MB (CK-2) C-Reactive Protein NT-Pro-B Natriuret Pep Total Protein Albumin Arterial Blood Glucose Urine WBC (Auto) Urine Creatinine Digoxin 01/14/20 01/15/20 01/15/20 18:05 00:52 05:35 WBC RBC Hgb Hct MCHC RDW MCV MCH Lymph % (Auto) [place] % (Auto) [place] # Eos # Lymph # (Auto) [place] # (Auto) Eos # (Auto) Seg Neutrophils % Seg Neuts % (Manual) Baso # (Auto) Lymphocytes % (Manual) Monocytes % (Manual) Eosinophils % (Manual) Basophils % (Manual) Seg Neutrophils # Seg Neutrophils # Man Lymphocytes # (Manual) Monocytes # (Manual) Eosinophils # (Manual) Nucleated RBC % Basophils # (Manual) PT INR APTT Heparin Anti-Xa Level ABG pH POC ABG pO2 ABG pO2 ABG HCO3 ABG O2 Saturation ABG Base Excess POC ABG pCO2 ABG Hemoglobin ABG Oxyhemoglobin ABG Sodium ABG Chloride ABG Glucose Oxyhemoglobin Sodium Potassium Chloride Carbon Dioxide BUN Creatinine Glucose POC Glucose 147 H 140 H 159 H Lactic Acid Calcium Phosphorus Magnesium AST ALT Lactate Dehydrogenase Total Bilirubin Direct Bilirubin CK-MB (CK-2) C-Reactive Protein NT-Pro-B Natriuret Pep Total Protein Albumin Arterial Blood Glucose Urine WBC (Auto) Urine Creatinine Digoxin 01/15/20 01/15/20 01/16/20 12:52 17:43 00:32 WBC RBC Hgb Hct MCHC RDW MCV MCH Lymph % (Auto) [place] % (Auto) [place] # Eos # Lymph # (Auto) [place] # (Auto) Eos # (Auto) Seg Neutrophils % Seg Neuts % (Manual) Baso # (Auto) Lymphocytes % (Manual) Monocytes % (Manual) Eosinophils % (Manual) Basophils % (Manual) Seg Neutrophils # Seg Neutrophils # Man Lymphocytes # (Manual) Monocytes # (Manual) Eosinophils # (Manual) Nucleated RBC % Basophils # (Manual) PT INR APTT Heparin Anti-Xa Level ABG pH POC ABG pO2 ABG pO2 ABG HCO3 ABG O2 Saturation ABG Base Excess POC ABG pCO2 ABG Hemoglobin ABG Oxyhemoglobin ABG Sodium ABG Chloride ABG Glucose Oxyhemoglobin Sodium Potassium Chloride Carbon Dioxide BUN Creatinine Glucose POC Glucose 164 H 167 H 153 H Lactic Acid Calcium Phosphorus Magnesium AST ALT Lactate Dehydrogenase Total Bilirubin Direct Bilirubin CK-MB (CK-2) C-Reactive Protein NT-Pro-B Natriuret Pep Total Protein Albumin Arterial Blood Glucose Urine WBC (Auto) Urine Creatinine Digoxin 01/16/20 01/16/20 01/17/20 05:46 11:48 06:38 WBC RBC Hgb Hct MCHC RDW MCV MCH Lymph % (Auto) [place] % (Auto) [place] # Eos # Lymph # (Auto) [place] # (Auto) Eos # (Auto) Seg Neutrophils % Seg Neuts % (Manual) Baso # (Auto) Lymphocytes % (Manual) Monocytes % (Manual) Eosinophils % (Manual) Basophils % (Manual) Seg Neutrophils # Seg Neutrophils # Man Lymphocytes # (Manual) Monocytes # (Manual) Eosinophils # (Manual) Nucleated RBC % Basophils # (Manual) PT INR APTT Heparin Anti-Xa Level ABG pH POC ABG pO2 ABG pO2 ABG HCO3 ABG O2 Saturation ABG Base Excess POC ABG pCO2 ABG Hemoglobin ABG Oxyhemoglobin ABG Sodium ABG Chloride ABG Glucose Oxyhemoglobin Sodium Potassium Chloride Carbon Dioxide BUN Creatinine Glucose POC Glucose 163 H 155 H 116 H Lactic Acid Calcium Phosphorus Magnesium AST ALT Lactate Dehydrogenase Total Bilirubin Direct Bilirubin CK-MB (CK-2) C-Reactive Protein NT-Pro-B Natriuret Pep Total Protein Albumin Arterial Blood Glucose Urine WBC (Auto) Urine Creatinine Digoxin 01/17/20 01/17/20 01/18/20 11:36 17:43 00:12 WBC RBC Hgb Hct MCHC RDW MCV MCH Lymph % (Auto) [place] % (Auto) [place] # Eos # Lymph # (Auto) [place] # (Auto) Eos # (Auto) Seg Neutrophils % Seg Neuts % (Manual) Baso # (Auto) Lymphocytes % (Manual) Monocytes % (Manual) Eosinophils % (Manual) Basophils % (Manual) Seg Neutrophils # Seg Neutrophils # Man Lymphocytes # (Manual) Monocytes # (Manual) Eosinophils # (Manual) Nucleated RBC % Basophils # (Manual) PT INR APTT Heparin Anti-Xa Level ABG pH POC ABG pO2 ABG pO2 ABG HCO3 ABG O2 Saturation ABG Base Excess POC ABG pCO2 ABG Hemoglobin ABG Oxyhemoglobin ABG Sodium ABG Chloride ABG Glucose Oxyhemoglobin Sodium Potassium Chloride Carbon Dioxide BUN Creatinine Glucose POC Glucose 110 H 134 H 108 H Lactic Acid Calcium Phosphorus Magnesium AST ALT Lactate Dehydrogenase Total Bilirubin Direct Bilirubin CK-MB (CK-2) C-Reactive Protein NT-Pro-B Natriuret Pep Total Protein Albumin Arterial Blood Glucose Urine WBC (Auto) Urine Creatinine Digoxin 01/18/20 01/18/20 01/18/20 05:37 06:46 06:46 WBC RBC Hgb 10.1 L Hct 32.2 L MCHC 31 L RDW 18.1 H MCV 81 L MCH 25 L Lymph % (Auto) [place] % (Auto) [place] # Eos # Lymph # (Auto) [place] # (Auto) Eos # (Auto) Seg Neutrophils % 71.9 H Seg Neuts % (Manual) Baso # (Auto) Lymphocytes % (Manual) Monocytes % (Manual) Eosinophils % (Manual) Basophils % (Manual) Seg Neutrophils # Seg Neutrophils # Man Lymphocytes # (Manual) Monocytes # (Manual) Eosinophils # (Manual) Nucleated RBC % Basophils # (Manual) PT INR APTT Heparin Anti-Xa Level ABG pH POC ABG pO2 ABG pO2 ABG HCO3 ABG O2 Saturation ABG Base Excess POC ABG pCO2 ABG Hemoglobin ABG Oxyhemoglobin ABG Sodium ABG Chloride ABG Glucose Oxyhemoglobin Sodium Potassium Chloride Carbon Dioxide BUN Creatinine 0.7 L Glucose 155 H POC Glucose 168 H Lactic Acid Calcium Phosphorus Magnesium AST ALT Lactate Dehydrogenase Total Bilirubin Direct Bilirubin CK-MB (CK-2) C-Reactive Protein NT-Pro-B Natriuret Pep Total Protein Albumin Arterial Blood Glucose Urine WBC (Auto) Urine Creatinine Digoxin 01/18/20 01/18/20 01/18/20 12:05 17:14 23:28 WBC RBC Hgb Hct MCHC RDW MCV MCH Lymph % (Auto) [place] % (Auto) [place] # Eos # Lymph # (Auto) [place] # (Auto) Eos # (Auto) Seg Neutrophils % Seg Neuts % (Manual) Baso # (Auto) Lymphocytes % (Manual) Monocytes % (Manual) Eosinophils % (Manual) Basophils % (Manual) Seg Neutrophils # Seg Neutrophils # Man Lymphocytes # (Manual) Monocytes # (Manual) Eosinophils # (Manual) Nucleated RBC % Basophils # (Manual) PT INR APTT Heparin Anti-Xa Level ABG pH POC ABG pO2 ABG pO2 ABG HCO3 ABG O2 Saturation ABG Base Excess POC ABG pCO2 ABG Hemoglobin ABG Oxyhemoglobin ABG Sodium ABG Chloride ABG Glucose Oxyhemoglobin Sodium Potassium Chloride Carbon Dioxide BUN Creatinine Glucose POC Glucose 128 H 126 H 128 H Lactic Acid Calcium Phosphorus Magnesium AST ALT Lactate Dehydrogenase Total Bilirubin Direct Bilirubin CK-MB (CK-2) C-Reactive Protein NT-Pro-B Natriuret Pep Total Protein Albumin Arterial Blood Glucose Urine WBC (Auto) Urine Creatinine Digoxin 01/19/20 01/19/20 01/19/20 05:39 12:33 17:36 WBC RBC Hgb Hct MCHC RDW MCV MCH Lymph % (Auto) Donley % (Auto) Donley # Eos # Lymph # (Auto) Donley # (Auto) Eos # (Auto) Seg Neutrophils % Seg Neuts % (Manual) Baso # (Auto) Lymphocytes % (Manual) Monocytes % (Manual) Eosinophils % (Manual) Basophils % (Manual) Seg Neutrophils # Seg Neutrophils # Man Lymphocytes # (Manual) Monocytes # (Manual) Eosinophils # (Manual) Nucleated RBC % Basophils # (Manual) PT INR APTT Heparin Anti-Xa Level ABG pH POC ABG pO2 ABG pO2 ABG HCO3 ABG O2 Saturation ABG Base Excess POC ABG pCO2 ABG Hemoglobin ABG Oxyhemoglobin ABG Sodium ABG Chloride ABG Glucose Oxyhemoglobin Sodium Potassium Chloride Carbon Dioxide BUN Creatinine Glucose POC Glucose 164 H 171 H 152 H Lactic Acid Calcium Phosphorus Magnesium AST ALT Lactate Dehydrogenase Total Bilirubin Direct Bilirubin CK-MB (CK-2) C-Reactive Protein NT-Pro-B Natriuret Pep Total Protein Albumin Arterial Blood Glucose Urine WBC (Auto) Urine Creatinine Digoxin 01/20/20 01/20/20 01/20/20 00:12 05:20 05:35 WBC RBC Hgb 9.2 L Hct 29.4 L MCHC 31 L RDW 17.9 H MCV 81 L MCH 25 L Lymph % (Auto) [place] % (Auto) [place] # Eos # Lymph # (Auto) [place] # (Auto) Eos # (Auto) Seg Neutrophils % Seg Neuts % (Manual) Baso # (Auto) Lymphocytes % (Manual) Monocytes % (Manual) Eosinophils % (Manual) Basophils % (Manual) Seg Neutrophils # Seg Neutrophils # Man Lymphocytes # (Manual) Monocytes # (Manual) Eosinophils # (Manual) Nucleated RBC % Basophils # (Manual) PT INR APTT Heparin Anti-Xa Level ABG pH POC ABG pO2 ABG pO2 ABG HCO3 ABG O2 Saturation ABG Base Excess POC ABG pCO2 ABG Hemoglobin ABG Oxyhemoglobin ABG Sodium ABG Chloride ABG Glucose Oxyhemoglobin Sodium Potassium Chloride Carbon Dioxide BUN Creatinine Glucose POC Glucose 120 H 136 H Lactic Acid Calcium Phosphorus Magnesium AST ALT Lactate Dehydrogenase Total Bilirubin Direct Bilirubin CK-MB (CK-2) C-Reactive Protein NT-Pro-B Natriuret Pep Total Protein Albumin Arterial Blood Glucose Urine WBC (Auto) Urine Creatinine Digoxin 01/20/20 01/20/20 01/20/20 05:40 11:58 14:55 WBC RBC Hgb 9.0 L Hct 28.3 L MCHC RDW MCV MCH Lymph % (Auto) [place] % (Auto) [place] # Eos # Lymph # (Auto) [place] # (Auto) Eos # (Auto) Seg Neutrophils % Seg Neuts % (Manual) Baso # (Auto) Lymphocytes % (Manual) Monocytes % (Manual) Eosinophils % (Manual) Basophils % (Manual) Seg Neutrophils # Seg Neutrophils # Man Lymphocytes # (Manual) Monocytes # (Manual) Eosinophils # (Manual) Nucleated RBC % Basophils # (Manual) PT INR APTT Heparin Anti-Xa Level ABG pH POC ABG pO2 ABG pO2 ABG HCO3 ABG O2 Saturation ABG Base Excess POC ABG pCO2 ABG Hemoglobin ABG Oxyhemoglobin ABG Sodium ABG Chloride ABG Glucose Oxyhemoglobin Sodium Potassium Chloride Carbon Dioxide 32 H BUN 22 H Creatinine 0.7 L Glucose 128 H POC Glucose 152 H Lactic Acid Calcium Phosphorus Magnesium AST ALT Lactate Dehydrogenase Total Bilirubin Direct Bilirubin CK-MB (CK-2) C-Reactive Protein NT-Pro-B Natriuret Pep Total Protein Albumin Arterial Blood Glucose Urine WBC (Auto) Urine Creatinine Digoxin 01/20/20 01/20/20 01/20/20 14:55 18:14 21:35 WBC RBC Hgb Hct MCHC RDW MCV MCH Lymph % (Auto) [place] % (Auto) [place] # Eos # Lymph # (Auto) [place] # (Auto) Eos # (Auto) Seg Neutrophils % Seg Neuts % (Manual) Baso # (Auto) Lymphocytes % (Manual) Monocytes % (Manual) Eosinophils % (Manual) Basophils % (Manual) Seg Neutrophils # Seg Neutrophils # Man Lymphocytes # (Manual) Monocytes # (Manual) Eosinophils # (Manual) Nucleated RBC % Basophils # (Manual) PT 20.4 H INR 1.72 H APTT 40.6 H Heparin Anti-Xa Level > 2.00 H ABG pH POC ABG pO2 ABG pO2 ABG HCO3 ABG O2 Saturation ABG Base Excess POC ABG pCO2 ABG Hemoglobin ABG Oxyhemoglobin ABG Sodium ABG Chloride ABG Glucose Oxyhemoglobin Sodium Potassium Chloride Carbon Dioxide BUN Creatinine Glucose POC Glucose 150 H Lactic Acid Calcium Phosphorus Magnesium AST ALT Lactate Dehydrogenase Total Bilirubin Direct Bilirubin CK-MB (CK-2) C-Reactive Protein NT-Pro-B Natriuret Pep Total Protein Albumin Arterial Blood Glucose Urine WBC (Auto) Urine Creatinine Digoxin 01/21/20 01/21/20 01/21/20 00:30 05:47 05:59 WBC RBC Hgb Hct MCHC RDW MCV MCH Lymph % (Auto) [place] % (Auto) [place] # Eos # Lymph # (Auto) [place] # (Auto) Eos # (Auto) Seg Neutrophils % Seg Neuts % (Manual) Baso # (Auto) Lymphocytes % (Manual) Monocytes % (Manual) Eosinophils % (Manual) Basophils % (Manual) Seg Neutrophils # Seg Neutrophils # Man Lymphocytes # (Manual) Monocytes # (Manual) Eosinophils # (Manual) Nucleated RBC % Basophils # (Manual) PT INR APTT Heparin Anti-Xa Level 1.93 H ABG pH POC ABG pO2 ABG pO2 ABG HCO3 ABG O2 Saturation ABG Base Excess POC ABG pCO2 ABG Hemoglobin ABG Oxyhemoglobin ABG Sodium ABG Chloride ABG Glucose Oxyhemoglobin Sodium Potassium Chloride Carbon Dioxide BUN Creatinine Glucose POC Glucose 126 H 148 H Lactic Acid Calcium Phosphorus Magnesium AST ALT Lactate Dehydrogenase Total Bilirubin Direct Bilirubin CK-MB (CK-2) C-Reactive Protein NT-Pro-B Natriuret Pep Total Protein Albumin Arterial Blood Glucose Urine WBC (Auto) Urine Creatinine Digoxin 01/21/20 01/21/20 01/21/20 12:32 18:20 23:54 WBC RBC Hgb Hct MCHC RDW MCV MCH Lymph % (Auto) [place] % (Auto) [place] # Eos # Lymph # (Auto) [place] # (Auto) Eos # (Auto) Seg Neutrophils % Seg Neuts % (Manual) Baso # (Auto) Lymphocytes % (Manual) Monocytes % (Manual) Eosinophils % (Manual) Basophils % (Manual) Seg Neutrophils # Seg Neutrophils # Man Lymphocytes # (Manual) Monocytes # (Manual) Eosinophils # (Manual) Nucleated RBC % Basophils # (Manual) PT INR APTT Heparin Anti-Xa Level 1.28 H ABG pH POC ABG pO2 ABG pO2 ABG HCO3 ABG O2 Saturation ABG Base Excess POC ABG pCO2 ABG Hemoglobin ABG Oxyhemoglobin ABG Sodium ABG Chloride ABG Glucose Oxyhemoglobin Sodium Potassium Chloride Carbon Dioxide BUN Creatinine Glucose POC Glucose 112 H 146 H Lactic Acid Calcium Phosphorus Magnesium AST ALT Lactate Dehydrogenase Total Bilirubin Direct Bilirubin CK-MB (CK-2) C-Reactive Protein NT-Pro-B Natriuret Pep Total Protein Albumin Arterial Blood Glucose Urine WBC (Auto) Urine Creatinine Digoxin 01/22/20 01/22/20 01/22/20 04:45 04:45 05:48 WBC RBC Hgb 9.3 L Hct 29.0 L MCHC RDW MCV MCH Lymph % (Auto) [place] % (Auto) [place] # Eos # Lymph # (Auto) [place] # (Auto) Eos # (Auto) Seg Neutrophils % Seg Neuts % (Manual) Baso # (Auto) Lymphocytes % (Manual) Monocytes % (Manual) Eosinophils % (Manual) Basophils % (Manual) Seg Neutrophils # Seg Neutrophils # Man Lymphocytes # (Manual) Monocytes # (Manual) Eosinophils # (Manual) Nucleated RBC % Basophils # (Manual) PT INR APTT Heparin Anti-Xa Level 1.34 H ABG pH POC ABG pO2 ABG pO2 ABG HCO3 ABG O2 Saturation ABG Base Excess POC ABG pCO2 ABG Hemoglobin ABG Oxyhemoglobin ABG Sodium ABG Chloride ABG Glucose Oxyhemoglobin Sodium Potassium Chloride Carbon Dioxide BUN Creatinine Glucose POC Glucose 142 H Lactic Acid Calcium Phosphorus Magnesium AST ALT Lactate Dehydrogenase Total Bilirubin Direct Bilirubin CK-MB (CK-2) C-Reactive Protein NT-Pro-B Natriuret Pep Total Protein Albumin Arterial Blood Glucose Urine WBC (Auto) Urine Creatinine Digoxin 01/22/20 01/22/20 01/22/20 08:09 08:22 09:58 WBC RBC Hgb Hct MCHC RDW MCV MCH Lymph % (Auto) [place] % (Auto) [place] # Eos # Lymph # (Auto) [place] # (Auto) Eos # (Auto) Seg Neutrophils % Seg Neuts % (Manual) Baso # (Auto) Lymphocytes % (Manual) Monocytes % (Manual) Eosinophils % (Manual) Basophils % (Manual) Seg Neutrophils # Seg Neutrophils # Man Lymphocytes # (Manual) Monocytes # (Manual) Eosinophils # (Manual) Nucleated RBC % Basophils # (Manual) PT 16.9 H INR 1.34 H APTT Heparin Anti-Xa Level ABG pH POC ABG pO2 ABG pO2 ABG HCO3 ABG O2 Saturation ABG Base Excess POC ABG pCO2 ABG Hemoglobin ABG Oxyhemoglobin ABG Sodium ABG Chloride ABG Glucose Oxyhemoglobin Sodium Potassium Chloride 97.8 L Carbon Dioxide BUN 29 H Creatinine Glucose 128 H POC Glucose 131 H Lactic Acid Calcium Phosphorus Magnesium AST ALT Lactate Dehydrogenase Total Bilirubin Direct Bilirubin CK-MB (CK-2) C-Reactive Protein NT-Pro-B Natriuret Pep Total Protein Albumin Arterial Blood Glucose Urine WBC (Auto) Urine Creatinine Digoxin 01/22/20 01/22/20 01/22/20 12:44 16:13 18:18 WBC RBC Hgb Hct MCHC RDW MCV MCH Lymph % (Auto) [place] % (Auto) [place] # Eos # Lymph # (Auto) [place] # (Auto) Eos # (Auto) Seg Neutrophils % Seg Neuts % (Manual) Baso # (Auto) Lymphocytes % (Manual) Monocytes % (Manual) Eosinophils % (Manual) Basophils % (Manual) Seg Neutrophils # Seg Neutrophils # Man Lymphocytes # (Manual) Monocytes # (Manual) Eosinophils # (Manual) Nucleated RBC % Basophils # (Manual) PT INR APTT Heparin Anti-Xa Level ABG pH POC ABG pO2 ABG pO2 ABG HCO3 ABG O2 Saturation ABG Base Excess POC ABG pCO2 ABG Hemoglobin ABG Oxyhemoglobin ABG Sodium ABG Chloride ABG Glucose Oxyhemoglobin Sodium Potassium Chloride Carbon Dioxide BUN Creatinine Glucose POC Glucose 156 H 133 H 155 H Lactic Acid Calcium Phosphorus Magnesium AST ALT Lactate Dehydrogenase Total Bilirubin Direct Bilirubin CK-MB (CK-2) C-Reactive Protein NT-Pro-B Natriuret Pep Total Protein Albumin Arterial Blood Glucose Urine WBC (Auto) Urine Creatinine Digoxin 01/22/20 01/23/20 01/23/20 23:22 05:37 12:59 WBC RBC Hgb Hct MCHC RDW MCV MCH Lymph % (Auto) [place] % (Auto) [place] # Eos # Lymph # (Auto) [place] # (Auto) Eos # (Auto) Seg Neutrophils % Seg Neuts % (Manual) Baso # (Auto) Lymphocytes % (Manual) Monocytes % (Manual) Eosinophils % (Manual) Basophils % (Manual) Seg Neutrophils # Seg Neutrophils # Man Lymphocytes # (Manual) Monocytes # (Manual) Eosinophils # (Manual) Nucleated RBC % Basophils # (Manual) PT INR APTT Heparin Anti-Xa Level ABG pH POC ABG pO2 ABG pO2 ABG HCO3 ABG O2 Saturation ABG Base Excess POC ABG pCO2 ABG Hemoglobin ABG Oxyhemoglobin ABG Sodium ABG Chloride ABG Glucose Oxyhemoglobin Sodium Potassium Chloride Carbon Dioxide BUN Creatinine Glucose POC Glucose 148 H 163 H 175 H Lactic Acid Calcium Phosphorus Magnesium AST ALT Lactate Dehydrogenase Total Bilirubin Direct Bilirubin CK-MB (CK-2) C-Reactive Protein NT-Pro-B Natriuret Pep Total Protein Albumin Arterial Blood Glucose Urine WBC (Auto) Urine Creatinine Digoxin 01/23/20 01/23/20 01/24/20 17:28 23:56 04:30 WBC RBC 3.46 L Hgb 8.8 L Hct 27.8 L MCHC RDW 18.2 H MCV 81 L MCH 25 L Lymph % (Auto) [place] % (Auto) 7.8 H [place] # Eos # Lymph # (Auto) [place] # (Auto) Eos # (Auto) Seg Neutrophils % Seg Neuts % (Manual) Baso # (Auto) Lymphocytes % (Manual) Monocytes % (Manual) Eosinophils % (Manual) Basophils % (Manual) Seg Neutrophils # Seg Neutrophils # Man Lymphocytes # (Manual) Monocytes # (Manual) Eosinophils # (Manual) Nucleated RBC % Basophils # (Manual) PT INR APTT Heparin Anti-Xa Level ABG pH POC ABG pO2 ABG pO2 ABG HCO3 ABG O2 Saturation ABG Base Excess POC ABG pCO2 ABG Hemoglobin ABG Oxyhemoglobin ABG Sodium ABG Chloride ABG Glucose Oxyhemoglobin Sodium Potassium Chloride Carbon Dioxide BUN Creatinine Glucose POC Glucose 165 H 177 H Lactic Acid Calcium Phosphorus Magnesium AST ALT Lactate Dehydrogenase Total Bilirubin Direct Bilirubin CK-MB (CK-2) C-Reactive Protein NT-Pro-B Natriuret Pep Total Protein Albumin Arterial Blood Glucose Urine WBC (Auto) Urine Creatinine Digoxin 01/24/20 01/24/20 01/24/20 04:30 07:18 12:06 WBC RBC Hgb Hct MCHC RDW MCV MCH Lymph % (Auto) [place] % (Auto) [place] # Eos # Lymph # (Auto) [place] # (Auto) Eos # (Auto) Seg Neutrophils % Seg Neuts % (Manual) Baso # (Auto) Lymphocytes % (Manual) Monocytes % (Manual) Eosinophils % (Manual) Basophils % (Manual) Seg Neutrophils # Seg Neutrophils # Man Lymphocytes # (Manual) Monocytes # (Manual) Eosinophils # (Manual) Nucleated RBC % Basophils # (Manual) PT INR APTT Heparin Anti-Xa Level ABG pH POC ABG pO2 ABG pO2 ABG HCO3 ABG O2 Saturation ABG Base Excess POC ABG pCO2 ABG Hemoglobin ABG Oxyhemoglobin ABG Sodium ABG Chloride ABG Glucose Oxyhemoglobin Sodium Potassium Chloride 97.9 L Carbon Dioxide BUN 31 H Creatinine Glucose 146 H POC Glucose 151 H 133 H Lactic Acid Calcium Phosphorus Magnesium AST ALT Lactate Dehydrogenase Total Bilirubin Direct Bilirubin CK-MB (CK-2) C-Reactive Protein NT-Pro-B Natriuret Pep Total Protein Albumin Arterial Blood Glucose Urine WBC (Auto) Urine Creatinine Digoxin 01/24/20 01/25/20 01/25/20 17:36 00:08 04:25 WBC RBC 3.50 L Hgb 8.7 L Hct 27.9 L MCHC 31 L RDW 18.2 H MCV 80 L MCH 25 L Lymph % (Auto) [place] % (Auto) 8.5 H [place] # Eos # Lymph # (Auto) [place] # (Auto) Eos # (Auto) Seg Neutrophils % Seg Neuts % (Manual) Baso # (Auto) Lymphocytes % (Manual) Monocytes % (Manual) Eosinophils % (Manual) Basophils % (Manual) Seg Neutrophils # Seg Neutrophils # Man Lymphocytes # (Manual) Monocytes # (Manual) Eosinophils # (Manual) Nucleated RBC % Basophils # (Manual) PT INR APTT Heparin Anti-Xa Level ABG pH POC ABG pO2 ABG pO2 ABG HCO3 ABG O2 Saturation ABG Base Excess POC ABG pCO2 ABG Hemoglobin ABG Oxyhemoglobin ABG Sodium ABG Chloride ABG Glucose Oxyhemoglobin Sodium Potassium Chloride Carbon Dioxide BUN Creatinine Glucose POC Glucose 133 H 129 H Lactic Acid Calcium Phosphorus Magnesium AST ALT Lactate Dehydrogenase Total Bilirubin Direct Bilirubin CK-MB (CK-2) C-Reactive Protein NT-Pro-B Natriuret Pep Total Protein Albumin Arterial Blood Glucose Urine WBC (Auto) Urine Creatinine Digoxin 01/25/20 01/25/20 01/25/20 04:25 05:38 11:52 WBC RBC Hgb Hct MCHC RDW MCV MCH Lymph % (Auto) [place] % (Auto) [place] # Eos # Lymph # (Auto) [place] # (Auto) Eos # (Auto) Seg Neutrophils % Seg Neuts % (Manual) Baso # (Auto) Lymphocytes % (Manual) Monocytes % (Manual) Eosinophils % (Manual) Basophils % (Manual) Seg Neutrophils # Seg Neutrophils # Man Lymphocytes # (Manual) Monocytes # (Manual) Eosinophils # (Manual) Nucleated RBC % Basophils # (Manual) PT INR APTT Heparin Anti-Xa Level ABG pH POC ABG pO2 ABG pO2 ABG HCO3 ABG O2 Saturation ABG Base Excess POC ABG pCO2 ABG Hemoglobin ABG Oxyhemoglobin ABG Sodium ABG Chloride ABG Glucose Oxyhemoglobin Sodium Potassium Chloride Carbon Dioxide BUN 30 H Creatinine Glucose 134 H POC Glucose 129 H 134 H Lactic Acid Calcium Phosphorus Magnesium AST ALT Lactate Dehydrogenase Total Bilirubin Direct Bilirubin CK-MB (CK-2) C-Reactive Protein NT-Pro-B Natriuret Pep Total Protein Albumin Arterial Blood Glucose Urine WBC (Auto) Urine Creatinine Digoxin 01/25/20 01/25/20 01/26/20 17:13 21:02 00:59 WBC RBC Hgb Hct MCHC RDW MCV MCH Lymph % (Auto) [place] % (Auto) [place] # Eos # Lymph # (Auto) [place] # (Auto) Eos # (Auto) Seg Neutrophils % Seg Neuts % (Manual) Baso # (Auto) Lymphocytes % (Manual) Monocytes % (Manual) Eosinophils % (Manual) Basophils % (Manual) Seg Neutrophils # Seg Neutrophils # Man Lymphocytes # (Manual) Monocytes # (Manual) Eosinophils # (Manual) Nucleated RBC % Basophils # (Manual) PT INR APTT Heparin Anti-Xa Level ABG pH POC ABG pO2 ABG pO2 57.5 L ABG HCO3 31.7 H ABG O2 Saturation 90.3 L ABG Base Excess 6.6 H POC ABG pCO2 ABG Hemoglobin 13.0 L ABG Oxyhemoglobin ABG Sodium ABG Chloride ABG Glucose Oxyhemoglobin 87.5 L Sodium Potassium Chloride Carbon Dioxide BUN Creatinine Glucose POC Glucose 124 H 196 H Lactic Acid Calcium Phosphorus Magnesium AST ALT Lactate Dehydrogenase Total Bilirubin Direct Bilirubin CK-MB (CK-2) C-Reactive Protein NT-Pro-B Natriuret Pep Total Protein Albumin Arterial Blood Glucose Urine WBC (Auto) Urine Creatinine Digoxin 01/26/20 01/26/20 01/26/20 03:20 05:46 12:46 WBC RBC Hgb 9.2 L Hct 29.4 L MCHC RDW MCV MCH Lymph % (Auto) [place] % (Auto) [place] # Eos # Lymph # (Auto) [place] # (Auto) Eos # (Auto) Seg Neutrophils % Seg Neuts % (Manual) Baso # (Auto) Lymphocytes % (Manual) Monocytes % (Manual) Eosinophils % (Manual) Basophils % (Manual) Seg Neutrophils # Seg Neutrophils # Man Lymphocytes # (Manual) Monocytes # (Manual) Eosinophils # (Manual) Nucleated RBC % Basophils # (Manual) PT INR APTT Heparin Anti-Xa Level ABG pH POC ABG pO2 ABG pO2 ABG HCO3 ABG O2 Saturation ABG Base Excess POC ABG pCO2 ABG Hemoglobin ABG Oxyhemoglobin ABG Sodium ABG Chloride ABG Glucose Oxyhemoglobin Sodium Potassium Chloride Carbon Dioxide BUN Creatinine Glucose POC Glucose 141 H 122 H Lactic Acid Calcium Phosphorus Magnesium AST ALT Lactate Dehydrogenase Total Bilirubin Direct Bilirubin CK-MB (CK-2) C-Reactive Protein NT-Pro-B Natriuret Pep Total Protein Albumin Arterial Blood Glucose Urine WBC (Auto) Urine Creatinine Digoxin 01/26/20 01/26/20 01/27/20 18:03 23:55 04:47 WBC RBC Hgb Hct MCHC RDW MCV MCH Lymph % (Auto) [place] % (Auto) [place] # Eos # Lymph # (Auto) [place] # (Auto) Eos # (Auto) Seg Neutrophils % Seg Neuts % (Manual) Baso # (Auto) Lymphocytes % (Manual) Monocytes % (Manual) Eosinophils % (Manual) Basophils % (Manual) Seg Neutrophils # Seg Neutrophils # Man Lymphocytes # (Manual) Monocytes # (Manual) Eosinophils # (Manual) Nucleated RBC % Basophils # (Manual) PT INR APTT Heparin Anti-Xa Level ABG pH POC ABG pO2 ABG pO2 ABG HCO3 ABG O2 Saturation ABG Base Excess POC ABG pCO2 ABG Hemoglobin ABG Oxyhemoglobin ABG Sodium ABG Chloride ABG Glucose Oxyhemoglobin Sodium Potassium Chloride Carbon Dioxide BUN 30 H Creatinine 0.7 L Glucose 135 H POC Glucose 142 H 159 H Lactic Acid Calcium Phosphorus Magnesium AST ALT Lactate Dehydrogenase Total Bilirubin Direct Bilirubin CK-MB (CK-2) C-Reactive Protein NT-Pro-B Natriuret Pep Total Protein Albumin Arterial Blood Glucose Urine WBC (Auto) Urine Creatinine Digoxin 01/27/20 01/27/20 01/27/20 05:43 12:06 17:16 WBC RBC Hgb Hct MCHC RDW MCV MCH Lymph % (Auto) [place] % (Auto) [place] # Eos # Lymph # (Auto) [place] # (Auto) Eos # (Auto) Seg Neutrophils % Seg Neuts % (Manual) Baso # (Auto) Lymphocytes % (Manual) Monocytes % (Manual) Eosinophils % (Manual) Basophils % (Manual) Seg Neutrophils # Seg Neutrophils # Man Lymphocytes # (Manual) Monocytes # (Manual) Eosinophils # (Manual) Nucleated RBC % Basophils # (Manual) PT INR APTT Heparin Anti-Xa Level ABG pH POC ABG pO2 ABG pO2 ABG HCO3 ABG O2 Saturation ABG Base Excess POC ABG pCO2 ABG Hemoglobin ABG Oxyhemoglobin ABG Sodium ABG Chloride ABG Glucose Oxyhemoglobin Sodium Potassium Chloride Carbon Dioxide BUN Creatinine Glucose POC Glucose 143 H 142 H 128 H Lactic Acid Calcium Phosphorus Magnesium AST ALT Lactate Dehydrogenase Total Bilirubin Direct Bilirubin CK-MB (CK-2) C-Reactive Protein NT-Pro-B Natriuret Pep Total Protein Albumin Arterial Blood Glucose Urine WBC (Auto) Urine Creatinine Digoxin 01/27/20 01/28/20 01/28/20 23:55 04:37 05:55 WBC RBC Hgb 9.4 L Hct 29.9 L MCHC RDW MCV MCH Lymph % (Auto) [place] % (Auto) [place] # Eos # Lymph # (Auto) [place] # (Auto) Eos # (Auto) Seg Neutrophils % Seg Neuts % (Manual) Baso # (Auto) Lymphocytes % (Manual) Monocytes % (Manual) Eosinophils % (Manual) Basophils % (Manual) Seg Neutrophils # Seg Neutrophils # Man Lymphocytes # (Manual) Monocytes # (Manual) Eosinophils # (Manual) Nucleated RBC % Basophils # (Manual) PT INR APTT Heparin Anti-Xa Level ABG pH POC ABG pO2 ABG pO2 ABG HCO3 ABG O2 Saturation ABG Base Excess POC ABG pCO2 ABG Hemoglobin ABG Oxyhemoglobin ABG Sodium ABG Chloride ABG Glucose Oxyhemoglobin Sodium Potassium Chloride Carbon Dioxide BUN Creatinine Glucose POC Glucose 166 H 169 H Lactic Acid Calcium Phosphorus Magnesium AST ALT Lactate Dehydrogenase Total Bilirubin Direct Bilirubin CK-MB (CK-2) C-Reactive Protein NT-Pro-B Natriuret Pep Total Protein Albumin Arterial Blood Glucose Urine WBC (Auto) Urine Creatinine Digoxin 01/28/20 01/28/20 01/28/20 11:58 17:26 23:46 WBC RBC Hgb Hct MCHC RDW MCV MCH Lymph % (Auto) [place] % (Auto) [place] # Eos # Lymph # (Auto) [place] # (Auto) Eos # (Auto) Seg Neutrophils % Seg Neuts % (Manual) Baso # (Auto) Lymphocytes % (Manual) Monocytes % (Manual) Eosinophils % (Manual) Basophils % (Manual) Seg Neutrophils # Seg Neutrophils # Man Lymphocytes # (Manual) Monocytes # (Manual) Eosinophils # (Manual) Nucleated RBC % Basophils # (Manual) PT INR APTT Heparin Anti-Xa Level ABG pH POC ABG pO2 ABG pO2 ABG HCO3 ABG O2 Saturation ABG Base Excess POC ABG pCO2 ABG Hemoglobin ABG Oxyhemoglobin ABG Sodium ABG Chloride ABG Glucose Oxyhemoglobin Sodium Potassium Chloride Carbon Dioxide BUN Creatinine Glucose POC Glucose 130 H 126 H 150 H Lactic Acid Calcium Phosphorus Magnesium AST ALT Lactate Dehydrogenase Total Bilirubin Direct Bilirubin CK-MB (CK-2) C-Reactive Protein NT-Pro-B Natriuret Pep Total Protein Albumin Arterial Blood Glucose Urine WBC (Auto) Urine Creatinine Digoxin 01/29/20 01/29/20 01/29/20 04:55 06:00 12:28 WBC RBC Hgb Hct MCHC RDW MCV MCH Lymph % (Auto) [place] % (Auto) [place] # Eos # Lymph # (Auto) [place] # (Auto) Eos # (Auto) Seg Neutrophils % Seg Neuts % (Manual) Baso # (Auto) Lymphocytes % (Manual) Monocytes % (Manual) Eosinophils % (Manual) Basophils % (Manual) Seg Neutrophils # Seg Neutrophils # Man Lymphocytes # (Manual) Monocytes # (Manual) Eosinophils # (Manual) Nucleated RBC % Basophils # (Manual) PT INR APTT Heparin Anti-Xa Level ABG pH POC ABG pO2 ABG pO2 ABG HCO3 ABG O2 Saturation ABG Base Excess POC ABG pCO2 ABG Hemoglobin ABG Oxyhemoglobin ABG Sodium ABG Chloride ABG Glucose Oxyhemoglobin Sodium Potassium Chloride Carbon Dioxide 34 H BUN Creatinine 0.6 L Glucose 152 H POC Glucose 157 H 156 H Lactic Acid Calcium Phosphorus Magnesium AST ALT Lactate Dehydrogenase Total Bilirubin Direct Bilirubin CK-MB (CK-2) C-Reactive Protein NT-Pro-B Natriuret Pep Total Protein Albumin Arterial Blood Glucose Urine WBC (Auto) Urine Creatinine Digoxin 01/29/20 01/30/20 01/30/20 19:06 00:29 05:39 WBC RBC Hgb Hct MCHC RDW MCV MCH Lymph % (Auto) [place] % (Auto) [place] # Eos # Lymph # (Auto) [place] # (Auto) Eos # (Auto) Seg Neutrophils % Seg Neuts % (Manual) Baso # (Auto) Lymphocytes % (Manual) Monocytes % (Manual) Eosinophils % (Manual) Basophils % (Manual) Seg Neutrophils # Seg Neutrophils # Man Lymphocytes # (Manual) Monocytes # (Manual) Eosinophils # (Manual) Nucleated RBC % Basophils # (Manual) PT INR APTT Heparin Anti-Xa Level ABG pH POC ABG pO2 ABG pO2 ABG HCO3 ABG O2 Saturation ABG Base Excess POC ABG pCO2 ABG Hemoglobin ABG Oxyhemoglobin ABG Sodium ABG Chloride ABG Glucose Oxyhemoglobin Sodium Potassium Chloride Carbon Dioxide BUN Creatinine Glucose POC Glucose 152 H 132 H 159 H Lactic Acid Calcium Phosphorus Magnesium AST ALT Lactate Dehydrogenase Total Bilirubin Direct Bilirubin CK-MB (CK-2) C-Reactive Protein NT-Pro-B Natriuret Pep Total Protein Albumin Arterial Blood Glucose Urine WBC (Auto) Urine Creatinine Digoxin 01/30/20 01/30/20 01/30/20 12:27 17:42 23:28 WBC RBC Hgb Hct MCHC RDW MCV MCH Lymph % (Auto) [place] % (Auto) [place] # Eos # Lymph # (Auto) [place] # (Auto) Eos # (Auto) Seg Neutrophils % Seg Neuts % (Manual) Baso # (Auto) Lymphocytes % (Manual) Monocytes % (Manual) Eosinophils % (Manual) Basophils % (Manual) Seg Neutrophils # Seg Neutrophils # Man Lymphocytes # (Manual) Monocytes # (Manual) Eosinophils # (Manual) Nucleated RBC % Basophils # (Manual) PT INR APTT Heparin Anti-Xa Level ABG pH POC ABG pO2 ABG pO2 ABG HCO3 ABG O2 Saturation ABG Base Excess POC ABG pCO2 ABG Hemoglobin ABG Oxyhemoglobin ABG Sodium ABG Chloride ABG Glucose Oxyhemoglobin Sodium Potassium Chloride Carbon Dioxide BUN Creatinine Glucose POC Glucose 151 H 144 H 164 H Lactic Acid Calcium Phosphorus Magnesium AST ALT Lactate Dehydrogenase Total Bilirubin Direct Bilirubin CK-MB (CK-2) C-Reactive Protein NT-Pro-B Natriuret Pep Total Protein Albumin Arterial Blood Glucose Urine WBC (Auto) Urine Creatinine Digoxin 01/31/20 01/31/20 01/31/20 05:51 11:51 18:06 WBC RBC Hgb Hct MCHC RDW MCV MCH Lymph % (Auto) [place] % (Auto) [place] # Eos # Lymph # (Auto) [place] # (Auto) Eos # (Auto) Seg Neutrophils % Seg Neuts % (Manual) Baso # (Auto) Lymphocytes % (Manual) Monocytes % (Manual) Eosinophils % (Manual) Basophils % (Manual) Seg Neutrophils # Seg Neutrophils # Man Lymphocytes # (Manual) Monocytes # (Manual) Eosinophils # (Manual) Nucleated RBC % Basophils # (Manual) PT INR APTT Heparin Anti-Xa Level ABG pH POC ABG pO2 ABG pO2 ABG HCO3 ABG O2 Saturation ABG Base Excess POC ABG pCO2 ABG Hemoglobin ABG Oxyhemoglobin ABG Sodium ABG Chloride ABG Glucose Oxyhemoglobin Sodium Potassium Chloride Carbon Dioxide BUN Creatinine Glucose POC Glucose 131 H 167 H 210 H Lactic Acid Calcium Phosphorus Magnesium AST ALT Lactate Dehydrogenase Total Bilirubin Direct Bilirubin CK-MB (CK-2) C-Reactive Protein NT-Pro-B Natriuret Pep Total Protein Albumin Arterial Blood Glucose Urine WBC (Auto) Urine Creatinine Digoxin 01/31/20 01/31/20 02/01/20 19:24 Unknown 00:34 WBC RBC Hgb Hct MCHC RDW MCV MCH Lymph % (Auto) Donley % (Auto) Donley # Eos # Lymph # (Auto) Donley # (Auto) Eos # (Auto) Seg Neutrophils % Seg Neuts % (Manual) Baso # (Auto) Lymphocytes % (Manual) Monocytes % (Manual) Eosinophils % (Manual) Basophils % (Manual) Seg Neutrophils # Seg Neutrophils # Man Lymphocytes # (Manual) Monocytes # (Manual) Eosinophils # (Manual) Nucleated RBC % Basophils # (Manual) PT INR APTT Heparin Anti-Xa Level ABG pH POC ABG pO2 ABG pO2 ABG HCO3 ABG O2 Saturation ABG Base Excess POC ABG pCO2 ABG Hemoglobin ABG Oxyhemoglobin ABG Sodium ABG Chloride ABG Glucose Oxyhemoglobin Sodium Potassium Chloride 95.3 L Carbon Dioxide 33 H BUN 36 H Creatinine Glucose 187 H POC Glucose 116 H Lactic Acid Calcium Phosphorus Magnesium AST ALT Lactate Dehydrogenase Total Bilirubin Direct Bilirubin CK-MB (CK-2) C-Reactive Protein NT-Pro-B Natriuret Pep Total Protein Albumin Arterial Blood Glucose Urine WBC (Auto) Urine Creatinine 57.4 H Digoxin 02/01/20 02/01/20 02/01/20 05:24 10:40 12:29 WBC RBC Hgb Hct MCHC RDW MCV MCH Lymph % (Auto) [place] % (Auto) [place] # Eos # Lymph # (Auto) [place] # (Auto) Eos # (Auto) Seg Neutrophils % Seg Neuts % (Manual) Baso # (Auto) Lymphocytes % (Manual) Monocytes % (Manual) Eosinophils % (Manual) Basophils % (Manual) Seg Neutrophils # Seg Neutrophils # Man Lymphocytes # (Manual) Monocytes # (Manual) Eosinophils # (Manual) Nucleated RBC % Basophils # (Manual) PT INR APTT Heparin Anti-Xa Level ABG pH POC ABG pO2 ABG pO2 ABG HCO3 ABG O2 Saturation ABG Base Excess POC ABG pCO2 ABG Hemoglobin ABG Oxyhemoglobin ABG Sodium ABG Chloride ABG Glucose Oxyhemoglobin Sodium Potassium Chloride Carbon Dioxide BUN Creatinine Glucose POC Glucose 142 H 165 H 151 H Lactic Acid Calcium Phosphorus Magnesium AST ALT Lactate Dehydrogenase Total Bilirubin Direct Bilirubin CK-MB (CK-2) C-Reactive Protein NT-Pro-B Natriuret Pep Total Protein Albumin Arterial Blood Glucose Urine WBC (Auto) Urine Creatinine Digoxin 02/01/20 02/01/20 02/02/20 17:16 23:23 06:36 WBC RBC Hgb Hct MCHC RDW MCV MCH Lymph % (Auto) [place] % (Auto) [place] # Eos # Lymph # (Auto) [place] # (Auto) Eos # (Auto) Seg Neutrophils % Seg Neuts % (Manual) Baso # (Auto) Lymphocytes % (Manual) Monocytes % (Manual) Eosinophils % (Manual) Basophils % (Manual) Seg Neutrophils # Seg Neutrophils # Man Lymphocytes # (Manual) Monocytes # (Manual) Eosinophils # (Manual) Nucleated RBC % Basophils # (Manual) PT INR APTT Heparin Anti-Xa Level ABG pH POC ABG pO2 ABG pO2 ABG HCO3 ABG O2 Saturation ABG Base Excess POC ABG pCO2 ABG Hemoglobin ABG Oxyhemoglobin ABG Sodium ABG Chloride ABG Glucose Oxyhemoglobin Sodium Potassium Chloride Carbon Dioxide BUN Creatinine Glucose POC Glucose 137 H 145 H 181 H Lactic Acid Calcium Phosphorus Magnesium AST ALT Lactate Dehydrogenase Total Bilirubin Direct Bilirubin CK-MB (CK-2) C-Reactive Protein NT-Pro-B Natriuret Pep Total Protein Albumin Arterial Blood Glucose Urine WBC (Auto) Urine Creatinine Digoxin 02/02/20 02/02/20 02/02/20 10:01 12:05 17:54 WBC RBC Hgb Hct MCHC RDW MCV MCH Lymph % (Auto) [place] % (Auto) [place] # Eos # Lymph # (Auto) [place] # (Auto) Eos # (Auto) Seg Neutrophils % Seg Neuts % (Manual) Baso # (Auto) Lymphocytes % (Manual) Monocytes % (Manual) Eosinophils % (Manual) Basophils % (Manual) Seg Neutrophils # Seg Neutrophils # Man Lymphocytes # (Manual) Monocytes # (Manual) Eosinophils # (Manual) Nucleated RBC % Basophils # (Manual) PT INR APTT Heparin Anti-Xa Level ABG pH POC ABG pO2 ABG pO2 ABG HCO3 ABG O2 Saturation ABG Base Excess POC ABG pCO2 ABG Hemoglobin ABG Oxyhemoglobin ABG Sodium ABG Chloride ABG Glucose Oxyhemoglobin Sodium Potassium Chloride 95.3 L Carbon Dioxide BUN 44 H Creatinine Glucose 234 H POC Glucose 184 H 127 H Lactic Acid Calcium Phosphorus Magnesium AST 363 H ALT 457 H Lactate Dehydrogenase Total Bilirubin Direct Bilirubin CK-MB (CK-2) C-Reactive Protein NT-Pro-B Natriuret Pep Total Protein Albumin 3.0 L Arterial Blood Glucose Urine WBC (Auto) Urine Creatinine Digoxin 02/02/20 02/03/20 02/03/20 23:47 05:32 07:04 WBC 13.0 H RBC Hgb 9.5 L Hct 30.8 L MCHC 31 L RDW 19.6 H MCV 81 L MCH 25 L Lymph % (Auto) [place] % (Auto) 9.4 H [place] # Eos # Lymph # (Auto) [place] # (Auto) 1.2 H Eos # (Auto) Seg Neutrophils % 72.3 H Seg Neuts % (Manual) Baso # (Auto) Lymphocytes % (Manual) Monocytes % (Manual) Eosinophils % (Manual) Basophils % (Manual) Seg Neutrophils # 9.4 H Seg Neutrophils # Man Lymphocytes # (Manual) Monocytes # (Manual) Eosinophils # (Manual) Nucleated RBC % Basophils # (Manual) PT INR APTT Heparin Anti-Xa Level ABG pH POC ABG pO2 ABG pO2 ABG HCO3 ABG O2 Saturation ABG Base Excess POC ABG pCO2 ABG Hemoglobin ABG Oxyhemoglobin ABG Sodium ABG Chloride ABG Glucose Oxyhemoglobin Sodium Potassium Chloride Carbon Dioxide BUN Creatinine Glucose POC Glucose 124 H 129 H Lactic Acid Calcium Phosphorus Magnesium AST ALT Lactate Dehydrogenase Total Bilirubin Direct Bilirubin CK-MB (CK-2) C-Reactive Protein NT-Pro-B Natriuret Pep Total Protein Albumin Arterial Blood Glucose Urine WBC (Auto) Urine Creatinine Digoxin 02/03/20 02/03/20 02/03/20 07:04 11:32 12:49 WBC RBC Hgb Hct MCHC RDW MCV MCH Lymph % (Auto) [place] % (Auto) [place] # Eos # Lymph # (Auto) [place] # (Auto) Eos # (Auto) Seg Neutrophils % Seg Neuts % (Manual) Baso # (Auto) Lymphocytes % (Manual) Monocytes % (Manual) Eosinophils % (Manual) Basophils % (Manual) Seg Neutrophils # Seg Neutrophils # Man Lymphocytes # (Manual) Monocytes # (Manual) Eosinophils # (Manual) Nucleated RBC % Basophils # (Manual) PT INR APTT Heparin Anti-Xa Level ABG pH POC ABG pO2 ABG pO2 ABG HCO3 ABG O2 Saturation ABG Base Excess POC ABG pCO2 ABG Hemoglobin ABG Oxyhemoglobin ABG Sodium ABG Chloride ABG Glucose Oxyhemoglobin Sodium Potassium Chloride 97.9 L Carbon Dioxide 33 H BUN 39 H Creatinine Glucose 119 H POC Glucose 138 H Lactic Acid Calcium Phosphorus Magnesium 2.60 H AST ALT Lactate Dehydrogenase Total Bilirubin Direct Bilirubin CK-MB (CK-2) C-Reactive Protein NT-Pro-B Natriuret Pep Total Protein Albumin Arterial Blood Glucose Urine WBC (Auto) Urine Creatinine Digoxin 02/03/20 02/04/20 02/04/20 18:28 16:24 16:24 WBC RBC 3.38 L Hgb 8.6 L Hct 26.9 L MCHC RDW 19.5 H MCV 80 L MCH 26 L Lymph % (Auto) [place] % (Auto) [place] # Eos # Lymph # (Auto) [place] # (Auto) Eos # (Auto) Seg Neutrophils % Seg Neuts % (Manual) Baso # (Auto) Lymphocytes % (Manual) Monocytes % (Manual) Eosinophils % (Manual) Basophils % (Manual) Seg Neutrophils # Seg Neutrophils # Man Lymphocytes # (Manual) Monocytes # (Manual) Eosinophils # (Manual) Nucleated RBC % Basophils # (Manual) PT INR APTT Heparin Anti-Xa Level ABG pH POC ABG pO2 ABG pO2 ABG HCO3 ABG O2 Saturation ABG Base Excess POC ABG pCO2 ABG Hemoglobin ABG Oxyhemoglobin ABG Sodium ABG Chloride ABG Glucose Oxyhemoglobin Sodium Potassium 3.4 L Chloride Carbon Dioxide 31 H BUN 37 H Creatinine Glucose 70 L POC Glucose 118 H Lactic Acid Calcium Phosphorus Magnesium AST 169 H ALT 394 H Lactate Dehydrogenase Total Bilirubin 1.50 H Direct Bilirubin CK-MB (CK-2) C-Reactive Protein NT-Pro-B Natriuret Pep Total Protein Albumin 2.9 L Arterial Blood Glucose Urine WBC (Auto) Urine Creatinine Digoxin 02/05/20 02/05/20 02/05/20 00:41 06:37 17:14 WBC RBC Hgb Hct MCHC RDW MCV MCH Lymph % (Auto) [place] % (Auto) [place] # Eos # Lymph # (Auto) [place] # (Auto) Eos # (Auto) Seg Neutrophils % Seg Neuts % (Manual) Baso # (Auto) Lymphocytes % (Manual) Monocytes % (Manual) Eosinophils % (Manual) Basophils % (Manual) Seg Neutrophils # Seg Neutrophils # Man Lymphocytes # (Manual) Monocytes # (Manual) Eosinophils # (Manual) Nucleated RBC % Basophils # (Manual) PT INR APTT Heparin Anti-Xa Level ABG pH POC ABG pO2 ABG pO2 ABG HCO3 ABG O2 Saturation ABG Base Excess POC ABG pCO2 ABG Hemoglobin ABG Oxyhemoglobin ABG Sodium ABG Chloride ABG Glucose Oxyhemoglobin Sodium Potassium 3.1 L Chloride Carbon Dioxide 35 H BUN 32 H Creatinine 0.7 L Glucose POC Glucose 69 L 127 H Lactic Acid Calcium Phosphorus Magnesium AST 134 H ALT 352 H Lactate Dehydrogenase Total Bilirubin 1.60 H Direct Bilirubin CK-MB (CK-2) C-Reactive Protein NT-Pro-B Natriuret Pep Total Protein Albumin 2.9 L Arterial Blood Glucose Urine WBC (Auto) Urine Creatinine Digoxin 02/05/20 02/06/20 02/06/20 23:43 05:32 08:01 WBC RBC Hgb Hct MCHC RDW MCV MCH Lymph % (Auto) [place] % (Auto) [place] # Eos # Lymph # (Auto) [place] # (Auto) Eos # (Auto) Seg Neutrophils % Seg Neuts % (Manual) Baso # (Auto) Lymphocytes % (Manual) Monocytes % (Manual) Eosinophils % (Manual) Basophils % (Manual) Seg Neutrophils # Seg Neutrophils # Man Lymphocytes # (Manual) Monocytes # (Manual) Eosinophils # (Manual) Nucleated RBC % Basophils # (Manual) PT INR APTT Heparin Anti-Xa Level ABG pH POC ABG pO2 ABG pO2 ABG HCO3 ABG O2 Saturation ABG Base Excess POC ABG pCO2 ABG Hemoglobin ABG Oxyhemoglobin ABG Sodium ABG Chloride ABG Glucose Oxyhemoglobin Sodium Potassium Chloride Carbon Dioxide BUN 40 H Creatinine Glucose 132 H POC Glucose 129 H 131 H Lactic Acid Calcium Phosphorus Magnesium AST ALT Lactate Dehydrogenase Total Bilirubin Direct Bilirubin CK-MB (CK-2) C-Reactive Protein NT-Pro-B Natriuret Pep Total Protein Albumin Arterial Blood Glucose Urine WBC (Auto) Urine Creatinine Digoxin 02/06/20 02/06/20 02/06/20 11:51 16:28 17:32 WBC RBC Hgb Hct MCHC RDW MCV MCH Lymph % (Auto) [place] % (Auto) [place] # Eos # Lymph # (Auto) [place] # (Auto) Eos # (Auto) Seg Neutrophils % Seg Neuts % (Manual) Baso # (Auto) Lymphocytes % (Manual) Monocytes % (Manual) Eosinophils % (Manual) Basophils % (Manual) Seg Neutrophils # Seg Neutrophils # Man Lymphocytes # (Manual) Monocytes # (Manual) Eosinophils # (Manual) Nucleated RBC % Basophils # (Manual) PT INR APTT Heparin Anti-Xa Level ABG pH POC ABG pO2 ABG pO2 ABG HCO3 ABG O2 Saturation ABG Base Excess POC ABG pCO2 ABG Hemoglobin ABG Oxyhemoglobin ABG Sodium ABG Chloride ABG Glucose Oxyhemoglobin Sodium Potassium Chloride Carbon Dioxide BUN Creatinine Glucose POC Glucose 167 H 129 H Lactic Acid Calcium Phosphorus Magnesium AST 824 H ALT 948 H Lactate Dehydrogenase Total Bilirubin 1.70 H Direct Bilirubin 1.2 H CK-MB (CK-2) C-Reactive Protein NT-Pro-B Natriuret Pep Total Protein Albumin 2.9 L Arterial Blood Glucose Urine WBC (Auto) Urine Creatinine Digoxin 02/07/20 02/07/20 02/07/20 00:11 04:57 04:57 WBC RBC Hgb 9.2 L Hct 29.7 L MCHC 31 L RDW 20.2 H MCV 80 L MCH 25 L Lymph % (Auto) [place] % (Auto) [place] # Eos # Lymph # (Auto) [place] # (Auto) Eos # (Auto) Seg Neutrophils % Seg Neuts % (Manual) Baso # (Auto) Lymphocytes % (Manual) Monocytes % (Manual) Eosinophils % (Manual) Basophils % (Manual) Seg Neutrophils # Seg Neutrophils # Man Lymphocytes # (Manual) Monocytes # (Manual) Eosinophils # (Manual) Nucleated RBC % Basophils # (Manual) PT INR APTT Heparin Anti-Xa Level ABG pH POC ABG pO2 ABG pO2 ABG HCO3 ABG O2 Saturation ABG Base Excess POC ABG pCO2 ABG Hemoglobin ABG Oxyhemoglobin ABG Sodium ABG Chloride ABG Glucose Oxyhemoglobin Sodium Potassium 3.4 L D Chloride Carbon Dioxide 32 H BUN 39 H Creatinine Glucose 106 H POC Glucose 121 H Lactic Acid Calcium Phosphorus Magnesium AST ALT Lactate Dehydrogenase Total Bilirubin Direct Bilirubin CK-MB (CK-2) C-Reactive Protein NT-Pro-B Natriuret Pep Total Protein Albumin Arterial Blood Glucose Urine WBC (Auto) Urine Creatinine Digoxin 02/07/20 02/07/20 02/07/20 15:03 15:03 17:11 WBC RBC Hgb Hct MCHC RDW MCV MCH Lymph % (Auto) [place] % (Auto) [place] # Eos # Lymph # (Auto) [place] # (Auto) Eos # (Auto) Seg Neutrophils % Seg Neuts % (Manual) Baso # (Auto) Lymphocytes % (Manual) Monocytes % (Manual) Eosinophils % (Manual) Basophils % (Manual) Seg Neutrophils # Seg Neutrophils # Man Lymphocytes # (Manual) Monocytes # (Manual) Eosinophils # (Manual) Nucleated RBC % Basophils # (Manual) PT 27.0 H INR 2.46 H APTT Heparin Anti-Xa Level ABG pH POC ABG pO2 ABG pO2 ABG HCO3 ABG O2 Saturation ABG Base Excess POC ABG pCO2 ABG Hemoglobin ABG Oxyhemoglobin ABG Sodium ABG Chloride ABG Glucose Oxyhemoglobin Sodium Potassium Chloride Carbon Dioxide BUN Creatinine Glucose POC Glucose 109 H Lactic Acid Calcium Phosphorus Magnesium AST 424 H ALT 796 H Lactate Dehydrogenase Total Bilirubin 1.60 H Direct Bilirubin 1.2 H CK-MB (CK-2) C-Reactive Protein NT-Pro-B Natriuret Pep Total Protein Albumin 2.9 L Arterial Blood Glucose Urine WBC (Auto) Urine Creatinine Digoxin 02/08/20 02/08/20 02/08/20 12:14 17:44 19:00 WBC RBC Hgb Hct MCHC RDW MCV MCH Lymph % (Auto) [place] % (Auto) [place] # Eos # Lymph # (Auto) [place] # (Auto) Eos # (Auto) Seg Neutrophils % Seg Neuts % (Manual) Baso # (Auto) Lymphocytes % (Manual) Monocytes % (Manual) Eosinophils % (Manual) Basophils % (Manual) Seg Neutrophils # Seg Neutrophils # Man Lymphocytes # (Manual) Monocytes # (Manual) Eosinophils # (Manual) Nucleated RBC % Basophils # (Manual) PT INR APTT Heparin Anti-Xa Level ABG pH POC ABG pO2 ABG pO2 ABG HCO3 ABG O2 Saturation ABG Base Excess POC ABG pCO2 ABG Hemoglobin ABG Oxyhemoglobin ABG Sodium ABG Chloride ABG Glucose Oxyhemoglobin Sodium Potassium Chloride Carbon Dioxide BUN Creatinine Glucose POC Glucose 111 H 107 H Lactic Acid Calcium Phosphorus Magnesium AST 309 H ALT 650 H Lactate Dehydrogenase Total Bilirubin 1.30 H Direct Bilirubin 0.9 H CK-MB (CK-2) C-Reactive Protein NT-Pro-B Natriuret Pep Total Protein 6.2 L Albumin 2.7 L Arterial Blood Glucose Urine WBC (Auto) Urine Creatinine Digoxin 02/09/20 02/09/20 02/09/20 05:41 12:28 18:07 WBC RBC Hgb Hct MCHC RDW MCV MCH Lymph % (Auto) [place] % (Auto) [place] # Eos # Lymph # (Auto) [place] # (Auto) Eos # (Auto) Seg Neutrophils % Seg Neuts % (Manual) Baso # (Auto) Lymphocytes % (Manual) Monocytes % (Manual) Eosinophils % (Manual) Basophils % (Manual) Seg Neutrophils # Seg Neutrophils # Man Lymphocytes # (Manual) Monocytes # (Manual) Eosinophils # (Manual) Nucleated RBC % Basophils # (Manual) PT INR APTT Heparin Anti-Xa Level ABG pH POC ABG pO2 ABG pO2 ABG HCO3 ABG O2 Saturation ABG Base Excess POC ABG pCO2 ABG Hemoglobin ABG Oxyhemoglobin ABG Sodium ABG Chloride ABG Glucose Oxyhemoglobin Sodium Potassium Chloride Carbon Dioxide BUN Creatinine Glucose POC Glucose 113 H 140 H 143 H Lactic Acid Calcium Phosphorus Magnesium AST ALT Lactate Dehydrogenase Total Bilirubin Direct Bilirubin CK-MB (CK-2) C-Reactive Protein NT-Pro-B Natriuret Pep Total Protein Albumin Arterial Blood Glucose Urine WBC (Auto) Urine Creatinine Digoxin 02/09/20 02/09/20 02/10/20 21:40 23:45 06:00 WBC RBC Hgb Hct MCHC RDW MCV MCH Lymph % (Auto) [place] % (Auto) [place] # Eos # Lymph # (Auto) [place] # (Auto) Eos # (Auto) Seg Neutrophils % Seg Neuts % (Manual) Baso # (Auto) Lymphocytes % (Manual) Monocytes % (Manual) Eosinophils % (Manual) Basophils % (Manual) Seg Neutrophils # Seg Neutrophils # Man Lymphocytes # (Manual) Monocytes # (Manual) Eosinophils # (Manual) Nucleated RBC % Basophils # (Manual) PT INR APTT Heparin Anti-Xa Level ABG pH POC ABG pO2 ABG pO2 59.8 L ABG HCO3 33.3 H ABG O2 Saturation 88.9 L ABG Base Excess 7.4 H POC ABG pCO2 ABG Hemoglobin 10.4 L ABG Oxyhemoglobin ABG Sodium ABG Chloride ABG Glucose Oxyhemoglobin 86.3 L Sodium Potassium Chloride Carbon Dioxide BUN Creatinine Glucose POC Glucose 127 H 114 H Lactic Acid Calcium Phosphorus Magnesium AST ALT Lactate Dehydrogenase Total Bilirubin Direct Bilirubin CK-MB (CK-2) C-Reactive Protein NT-Pro-B Natriuret Pep Total Protein Albumin Arterial Blood Glucose Urine WBC (Auto) Urine Creatinine Digoxin 02/10/20 02/10/20 02/10/20 07:40 07:40 13:38 WBC 11.5 H RBC Hgb 10.6 L Hct 34.7 L MCHC 31 L RDW 19.8 H MCV 79 L MCH 24 L Lymph % (Auto) [place] % (Auto) 9.2 H [place] # Eos # Lymph # (Auto) [place] # (Auto) 1.1 H Eos # (Auto) Seg Neutrophils % Seg Neuts % (Manual) Baso # (Auto) Lymphocytes % (Manual) Monocytes % (Manual) Eosinophils % (Manual) Basophils % (Manual) Seg Neutrophils # Seg Neutrophils # Man Lymphocytes # (Manual) Monocytes # (Manual) Eosinophils # (Manual) Nucleated RBC % Basophils # (Manual) PT INR APTT Heparin Anti-Xa Level ABG pH POC ABG pO2 ABG pO2 ABG HCO3 ABG O2 Saturation ABG Base Excess POC ABG pCO2 ABG Hemoglobin ABG Oxyhemoglobin ABG Sodium ABG Chloride ABG Glucose Oxyhemoglobin Sodium 151 H Potassium Chloride 107.2 H Carbon Dioxide 36 H BUN 25 H Creatinine 0.7 L Glucose 114 H POC Glucose 116 H Lactic Acid Calcium Phosphorus Magnesium 2.40 H AST ALT Lactate Dehydrogenase Total Bilirubin Direct Bilirubin CK-MB (CK-2) C-Reactive Protein NT-Pro-B Natriuret Pep Total Protein Albumin Arterial Blood Glucose Urine WBC (Auto) Urine Creatinine Digoxin 02/10/20 02/11/20 02/11/20 17:44 05:47 12:21 WBC RBC Hgb Hct MCHC RDW MCV MCH Lymph % (Auto) [place] % (Auto) [place] # Eos # Lymph # (Auto) [place] # (Auto) Eos # (Auto) Seg Neutrophils % Seg Neuts % (Manual) Baso # (Auto) Lymphocytes % (Manual) Monocytes % (Manual) Eosinophils % (Manual) Basophils % (Manual) Seg Neutrophils # Seg Neutrophils # Man Lymphocytes # (Manual) Monocytes # (Manual) Eosinophils # (Manual) Nucleated RBC % Basophils # (Manual) PT INR APTT Heparin Anti-Xa Level ABG pH POC ABG pO2 ABG pO2 ABG HCO3 ABG O2 Saturation ABG Base Excess POC ABG pCO2 ABG Hemoglobin ABG Oxyhemoglobin ABG Sodium ABG Chloride ABG Glucose Oxyhemoglobin Sodium Potassium Chloride Carbon Dioxide BUN Creatinine Glucose POC Glucose 139 H 173 H 143 H Lactic Acid Calcium Phosphorus Magnesium AST ALT Lactate Dehydrogenase Total Bilirubin Direct Bilirubin CK-MB (CK-2) C-Reactive Protein NT-Pro-B Natriuret Pep Total Protein Albumin Arterial Blood Glucose Urine WBC (Auto) Urine Creatinine Digoxin 02/11/20 02/11/20 02/12/20 13:43 14:11 00:15 WBC RBC Hgb Hct MCHC RDW MCV MCH Lymph % (Auto) [place] % (Auto) [place] # Eos # Lymph # (Auto) [place] # (Auto) Eos # (Auto) Seg Neutrophils % Seg Neuts % (Manual) Baso # (Auto) Lymphocytes % (Manual) Monocytes % (Manual) Eosinophils % (Manual) Basophils % (Manual) Seg Neutrophils # Seg Neutrophils # Man Lymphocytes # (Manual) Monocytes # (Manual) Eosinophils # (Manual) Nucleated RBC % Basophils # (Manual) PT INR APTT Heparin Anti-Xa Level ABG pH 7.502 H POC ABG pO2 77.7 L ABG pO2 ABG HCO3 ABG O2 Saturation ABG Base Excess POC ABG pCO2 ABG Hemoglobin 11.1 L ABG Oxyhemoglobin ABG Sodium ABG Chloride 108.0 H ABG Glucose 151 H Oxyhemoglobin Sodium Potassium Chloride Carbon Dioxide BUN Creatinine Glucose POC Glucose 130 H 125 H Lactic Acid Calcium Phosphorus Magnesium AST ALT Lactate Dehydrogenase Total Bilirubin Direct Bilirubin CK-MB (CK-2) C-Reactive Protein NT-Pro-B Natriuret Pep Total Protein Albumin Arterial Blood Glucose 151 H Urine WBC (Auto) Urine Creatinine Digoxin 02/12/20 02/12/20 02/12/20 04:56 04:56 17:42 WBC RBC Hgb 9.9 L Hct 31.8 L MCHC 31 L RDW 19.4 H MCV 79 L MCH 25 L Lymph % (Auto) [place] % (Auto) 10.3 H [place] # Eos # Lymph # (Auto) [place] # (Auto) 1.0 H Eos # (Auto) Seg Neutrophils % Seg Neuts % (Manual) Baso # (Auto) Lymphocytes % (Manual) Monocytes % (Manual) Eosinophils % (Manual) Basophils % (Manual) Seg Neutrophils # Seg Neutrophils # Man Lymphocytes # (Manual) Monocytes # (Manual) Eosinophils # (Manual) Nucleated RBC % Basophils # (Manual) PT INR APTT Heparin Anti-Xa Level ABG pH POC ABG pO2 ABG pO2 ABG HCO3 ABG O2 Saturation ABG Base Excess POC ABG pCO2 ABG Hemoglobin ABG Oxyhemoglobin ABG Sodium ABG Chloride ABG Glucose Oxyhemoglobin Sodium 149 H Potassium Chloride 108.6 H Carbon Dioxide BUN 28 H Creatinine 0.7 L Glucose 108 H POC Glucose 113 H Lactic Acid Calcium Phosphorus Magnesium AST ALT Lactate Dehydrogenase Total Bilirubin Direct Bilirubin CK-MB (CK-2) C-Reactive Protein NT-Pro-B Natriuret Pep Total Protein Albumin Arterial Blood Glucose Urine WBC (Auto) Urine Creatinine Digoxin 02/13/20 02/13/20 02/13/20 00:39 05:36 12:25 WBC RBC Hgb Hct MCHC RDW MCV MCH Lymph % (Auto) [place] % (Auto) [place] # Eos # Lymph # (Auto) [place] # (Auto) Eos # (Auto) Seg Neutrophils % Seg Neuts % (Manual) Baso # (Auto) Lymphocytes % (Manual) Monocytes % (Manual) Eosinophils % (Manual) Basophils % (Manual) Seg Neutrophils # Seg Neutrophils # Man Lymphocytes # (Manual) Monocytes # (Manual) Eosinophils # (Manual) Nucleated RBC % Basophils # (Manual) PT INR APTT Heparin Anti-Xa Level ABG pH POC ABG pO2 ABG pO2 ABG HCO3 ABG O2 Saturation ABG Base Excess POC ABG pCO2 ABG Hemoglobin ABG Oxyhemoglobin ABG Sodium ABG Chloride ABG Glucose Oxyhemoglobin Sodium Potassium Chloride Carbon Dioxide BUN Creatinine Glucose POC Glucose 129 H 126 H 129 H Lactic Acid Calcium Phosphorus Magnesium AST ALT Lactate Dehydrogenase Total Bilirubin Direct Bilirubin CK-MB (CK-2) C-Reactive Protein NT-Pro-B Natriuret Pep Total Protein Albumin Arterial Blood Glucose Urine WBC (Auto) Urine Creatinine Digoxin 02/13/20 02/14/20 02/14/20 17:59 00:15 05:41 WBC RBC Hgb Hct MCHC RDW MCV MCH Lymph % (Auto) [place] % (Auto) [place] # Eos # Lymph # (Auto) [place] # (Auto) Eos # (Auto) Seg Neutrophils % Seg Neuts % (Manual) Baso # (Auto) Lymphocytes % (Manual) Monocytes % (Manual) Eosinophils % (Manual) Basophils % (Manual) Seg Neutrophils # Seg Neutrophils # Man Lymphocytes # (Manual) Monocytes # (Manual) Eosinophils # (Manual) Nucleated RBC % Basophils # (Manual) PT INR APTT Heparin Anti-Xa Level ABG pH POC ABG pO2 ABG pO2 ABG HCO3 ABG O2 Saturation ABG Base Excess POC ABG pCO2 ABG Hemoglobin ABG Oxyhemoglobin ABG Sodium ABG Chloride ABG Glucose Oxyhemoglobin Sodium Potassium Chloride Carbon Dioxide BUN Creatinine Glucose POC Glucose 153 H 130 H 130 H Lactic Acid Calcium Phosphorus Magnesium AST ALT Lactate Dehydrogenase Total Bilirubin Direct Bilirubin CK-MB (CK-2) C-Reactive Protein NT-Pro-B Natriuret Pep Total Protein Albumin Arterial Blood Glucose Urine WBC (Auto) Urine Creatinine Digoxin 02/14/20 02/15/20 02/15/20 11:32 00:12 05:27 WBC RBC Hgb Hct MCHC RDW MCV MCH Lymph % (Auto) [place] % (Auto) [place] # Eos # Lymph # (Auto) [place] # (Auto) Eos # (Auto) Seg Neutrophils % Seg Neuts % (Manual) Baso # (Auto) Lymphocytes % (Manual) Monocytes % (Manual) Eosinophils % (Manual) Basophils % (Manual) Seg Neutrophils # Seg Neutrophils # Man Lymphocytes # (Manual) Monocytes # (Manual) Eosinophils # (Manual) Nucleated RBC % Basophils # (Manual) PT INR APTT Heparin Anti-Xa Level ABG pH POC ABG pO2 ABG pO2 ABG HCO3 ABG O2 Saturation ABG Base Excess POC ABG pCO2 ABG Hemoglobin ABG Oxyhemoglobin ABG Sodium ABG Chloride ABG Glucose Oxyhemoglobin Sodium Potassium Chloride Carbon Dioxide BUN Creatinine Glucose POC Glucose 157 H 124 H 111 H Lactic Acid Calcium Phosphorus Magnesium AST ALT Lactate Dehydrogenase Total Bilirubin Direct Bilirubin CK-MB (CK-2) C-Reactive Protein NT-Pro-B Natriuret Pep Total Protein Albumin Arterial Blood Glucose Urine WBC (Auto) Urine Creatinine Digoxin 02/15/20 02/15/20 02/15/20 06:59 06:59 11:14 WBC RBC Hgb 10.4 L Hct 33.7 L MCHC 31 L RDW 19.4 H MCV 80 L MCH 24 L Lymph % (Auto) [place] % (Auto) [place] # Eos # Lymph # (Auto) [place] # (Auto) Eos # (Auto) Seg Neutrophils % Seg Neuts % (Manual) Baso # (Auto) Lymphocytes % (Manual) Monocytes % (Manual) Eosinophils % (Manual) Basophils % (Manual) 2.0 H Seg Neutrophils # Seg Neutrophils # Man Lymphocytes # (Manual) Monocytes # (Manual) Eosinophils # (Manual) Nucleated RBC % 1.0 H Basophils # (Manual) 0.2 H PT INR APTT Heparin Anti-Xa Level ABG pH POC ABG pO2 ABG pO2 ABG HCO3 ABG O2 Saturation ABG Base Excess POC ABG pCO2 ABG Hemoglobin ABG Oxyhemoglobin ABG Sodium ABG Chloride ABG Glucose Oxyhemoglobin Sodium 149 H Potassium Chloride 108.4 H Carbon Dioxide 31 H BUN 40 H Creatinine 0.7 L Glucose 150 H POC Glucose 128 H Lactic Acid Calcium Phosphorus Magnesium AST ALT Lactate Dehydrogenase Total Bilirubin Direct Bilirubin CK-MB (CK-2) C-Reactive Protein NT-Pro-B Natriuret Pep Total Protein Albumin Arterial Blood Glucose Urine WBC (Auto) Urine Creatinine Digoxin 02/15/20 02/15/20 02/16/20 17:46 23:50 05:03 WBC RBC Hgb Hct MCHC RDW MCV MCH Lymph % (Auto) Donley % (Auto) Donley # Eos # Lymph # (Auto) Donley # (Auto) Eos # (Auto) Seg Neutrophils % Seg Neuts % (Manual) Baso # (Auto) Lymphocytes % (Manual) Monocytes % (Manual) Eosinophils % (Manual) Basophils % (Manual) Seg Neutrophils # Seg Neutrophils # Man Lymphocytes # (Manual) Monocytes # (Manual) Eosinophils # (Manual) Nucleated RBC % Basophils # (Manual) PT INR APTT Heparin Anti-Xa Level ABG pH POC ABG pO2 ABG pO2 ABG HCO3 ABG O2 Saturation ABG Base Excess POC ABG pCO2 ABG Hemoglobin ABG Oxyhemoglobin ABG Sodium ABG Chloride ABG Glucose Oxyhemoglobin Sodium Potassium Chloride Carbon Dioxide BUN Creatinine Glucose POC Glucose 154 H 135 H 148 H Lactic Acid Calcium Phosphorus Magnesium AST ALT Lactate Dehydrogenase Total Bilirubin Direct Bilirubin CK-MB (CK-2) C-Reactive Protein NT-Pro-B Natriuret Pep Total Protein Albumin Arterial Blood Glucose Urine WBC (Auto) Urine Creatinine Digoxin 02/16/20 02/16/20 02/16/20 07:53 11:28 17:52 WBC RBC Hgb Hct MCHC RDW MCV MCH Lymph % (Auto) [place] % (Auto) [place] # Eos # Lymph # (Auto) [place] # (Auto) Eos # (Auto) Seg Neutrophils % Seg Neuts % (Manual) Baso # (Auto) Lymphocytes % (Manual) Monocytes % (Manual) Eosinophils % (Manual) Basophils % (Manual) Seg Neutrophils # Seg Neutrophils # Man Lymphocytes # (Manual) Monocytes # (Manual) Eosinophils # (Manual) Nucleated RBC % Basophils # (Manual) PT INR APTT Heparin Anti-Xa Level ABG pH POC ABG pO2 ABG pO2 ABG HCO3 ABG O2 Saturation ABG Base Excess POC ABG pCO2 ABG Hemoglobin ABG Oxyhemoglobin ABG Sodium ABG Chloride ABG Glucose Oxyhemoglobin Sodium Potassium Chloride 107.9 H Carbon Dioxide BUN 38 H Creatinine 0.6 L Glucose 151 H POC Glucose 123 H 152 H Lactic Acid Calcium Phosphorus Magnesium AST ALT Lactate Dehydrogenase Total Bilirubin Direct Bilirubin CK-MB (CK-2) C-Reactive Protein NT-Pro-B Natriuret Pep Total Protein Albumin Arterial Blood Glucose Urine WBC (Auto) Urine Creatinine Digoxin 02/16/20 02/17/20 02/17/20 23:49 06:24 11:36 WBC RBC Hgb Hct MCHC RDW MCV MCH Lymph % (Auto) [place] % (Auto) [place] # Eos # Lymph # (Auto) [place] # (Auto) Eos # (Auto) Seg Neutrophils % Seg Neuts % (Manual) Baso # (Auto) Lymphocytes % (Manual) Monocytes % (Manual) Eosinophils % (Manual) Basophils % (Manual) Seg Neutrophils # Seg Neutrophils # Man Lymphocytes # (Manual) Monocytes # (Manual) Eosinophils # (Manual) Nucleated RBC % Basophils # (Manual) PT INR APTT Heparin Anti-Xa Level ABG pH POC ABG pO2 ABG pO2 ABG HCO3 ABG O2 Saturation ABG Base Excess POC ABG pCO2 ABG Hemoglobin ABG Oxyhemoglobin ABG Sodium ABG Chloride ABG Glucose Oxyhemoglobin Sodium Potassium Chloride Carbon Dioxide BUN Creatinine Glucose POC Glucose 156 H 193 H 162 H Lactic Acid Calcium Phosphorus Magnesium AST ALT Lactate Dehydrogenase Total Bilirubin Direct Bilirubin CK-MB (CK-2) C-Reactive Protein NT-Pro-B Natriuret Pep Total Protein Albumin Arterial Blood Glucose Urine WBC (Auto) Urine Creatinine Digoxin 02/17/20 02/17/20 02/18/20 17:55 23:28 05:11 WBC RBC Hgb Hct MCHC RDW MCV MCH Lymph % (Auto) [place] % (Auto) [place] # Eos # Lymph # (Auto) [place] # (Auto) Eos # (Auto) Seg Neutrophils % Seg Neuts % (Manual) Baso # (Auto) Lymphocytes % (Manual) Monocytes % (Manual) Eosinophils % (Manual) Basophils % (Manual) Seg Neutrophils # Seg Neutrophils # Man Lymphocytes # (Manual) Monocytes # (Manual) Eosinophils # (Manual) Nucleated RBC % Basophils # (Manual) PT INR APTT Heparin Anti-Xa Level ABG pH POC ABG pO2 ABG pO2 ABG HCO3 ABG O2 Saturation ABG Base Excess POC ABG pCO2 ABG Hemoglobin ABG Oxyhemoglobin ABG Sodium ABG Chloride ABG Glucose Oxyhemoglobin Sodium Potassium Chloride Carbon Dioxide BUN Creatinine Glucose POC Glucose 165 H 146 H 122 H Lactic Acid Calcium Phosphorus Magnesium AST ALT Lactate Dehydrogenase Total Bilirubin Direct Bilirubin CK-MB (CK-2) C-Reactive Protein NT-Pro-B Natriuret Pep Total Protein Albumin Arterial Blood Glucose Urine WBC (Auto) Urine Creatinine Digoxin 02/18/20 02/18/20 02/19/20 12:24 17:29 00:01 WBC RBC Hgb Hct MCHC RDW MCV MCH Lymph % (Auto) [place] % (Auto) [place] # Eos # Lymph # (Auto) [place] # (Auto) Eos # (Auto) Seg Neutrophils % Seg Neuts % (Manual) Baso # (Auto) Lymphocytes % (Manual) Monocytes % (Manual) Eosinophils % (Manual) Basophils % (Manual) Seg Neutrophils # Seg Neutrophils # Man Lymphocytes # (Manual) Monocytes # (Manual) Eosinophils # (Manual) Nucleated RBC % Basophils # (Manual) PT INR APTT Heparin Anti-Xa Level ABG pH POC ABG pO2 ABG pO2 ABG HCO3 ABG O2 Saturation ABG Base Excess POC ABG pCO2 ABG Hemoglobin ABG Oxyhemoglobin ABG Sodium ABG Chloride ABG Glucose Oxyhemoglobin Sodium Potassium Chloride Carbon Dioxide BUN Creatinine Glucose POC Glucose 162 H 136 H 145 H Lactic Acid Calcium Phosphorus Magnesium AST ALT Lactate Dehydrogenase Total Bilirubin Direct Bilirubin CK-MB (CK-2) C-Reactive Protein NT-Pro-B Natriuret Pep Total Protein Albumin Arterial Blood Glucose Urine WBC (Auto) Urine Creatinine Digoxin 02/19/20 02/19/20 02/19/20 05:53 11:44 17:32 WBC RBC Hgb Hct MCHC RDW MCV MCH Lymph % (Auto) [place] % (Auto) [place] # Eos # Lymph # (Auto) [place] # (Auto) Eos # (Auto) Seg Neutrophils % Seg Neuts % (Manual) Baso # (Auto) Lymphocytes % (Manual) Monocytes % (Manual) Eosinophils % (Manual) Basophils % (Manual) Seg Neutrophils # Seg Neutrophils # Man Lymphocytes # (Manual) Monocytes # (Manual) Eosinophils # (Manual) Nucleated RBC % Basophils # (Manual) PT INR APTT Heparin Anti-Xa Level ABG pH POC ABG pO2 ABG pO2 ABG HCO3 ABG O2 Saturation ABG Base Excess POC ABG pCO2 ABG Hemoglobin ABG Oxyhemoglobin ABG Sodium ABG Chloride ABG Glucose Oxyhemoglobin Sodium Potassium Chloride Carbon Dioxide BUN Creatinine Glucose POC Glucose 116 H 120 H 154 H Lactic Acid Calcium Phosphorus Magnesium AST ALT Lactate Dehydrogenase Total Bilirubin Direct Bilirubin CK-MB (CK-2) C-Reactive Protein NT-Pro-B Natriuret Pep Total Protein Albumin Arterial Blood Glucose Urine WBC (Auto) Urine Creatinine Digoxin 02/19/20 02/20/20 02/20/20 23:43 00:24 00:24 WBC RBC Hgb 9.4 L Hct 30.0 L MCHC 31 L RDW 20.4 H MCV 79 L MCH 25 L Lymph % (Auto) [place] % (Auto) 8.5 H [place] # Eos # Lymph # (Auto) [place] # (Auto) Eos # (Auto) Seg Neutrophils % Seg Neuts % (Manual) Baso # (Auto) Lymphocytes % (Manual) Monocytes % (Manual) Eosinophils % (Manual) Basophils % (Manual) Seg Neutrophils # Seg Neutrophils # Man Lymphocytes # (Manual) Monocytes # (Manual) Eosinophils # (Manual) Nucleated RBC % Basophils # (Manual) PT INR APTT Heparin Anti-Xa Level ABG pH POC ABG pO2 ABG pO2 ABG HCO3 ABG O2 Saturation ABG Base Excess POC ABG pCO2 ABG Hemoglobin ABG Oxyhemoglobin ABG Sodium ABG Chloride ABG Glucose Oxyhemoglobin Sodium 147 H Potassium 3.4 L Chloride Carbon Dioxide 31 H BUN 34 H Creatinine 0.5 L Glucose 135 H POC Glucose 122 H Lactic Acid Calcium Phosphorus Magnesium AST ALT Lactate Dehydrogenase Total Bilirubin Direct Bilirubin CK-MB (CK-2) C-Reactive Protein NT-Pro-B Natriuret Pep Total Protein Albumin Arterial Blood Glucose Urine WBC (Auto) Urine Creatinine Digoxin 02/20/20 02/20/20 02/20/20 06:07 06:45 12:03 WBC RBC Hgb Hct MCHC RDW MCV MCH Lymph % (Auto) [place] % (Auto) [place] # Eos # Lymph # (Auto) [place] # (Auto) Eos # (Auto) Seg Neutrophils % Seg Neuts % (Manual) Baso # (Auto) Lymphocytes % (Manual) Monocytes % (Manual) Eosinophils % (Manual) Basophils % (Manual) Seg Neutrophils # Seg Neutrophils # Man Lymphocytes # (Manual) Monocytes # (Manual) Eosinophils # (Manual) Nucleated RBC % Basophils # (Manual) PT INR APTT Heparin Anti-Xa Level ABG pH 7.461 H POC ABG pO2 ABG pO2 ABG HCO3 33.3 H ABG O2 Saturation ABG Base Excess 8.4 H POC ABG pCO2 ABG Hemoglobin 10.0 L ABG Oxyhemoglobin ABG Sodium ABG Chloride ABG Glucose Oxyhemoglobin 94.1 L Sodium Potassium Chloride Carbon Dioxide BUN Creatinine Glucose POC Glucose 109 H 128 H Lactic Acid Calcium Phosphorus Magnesium AST ALT Lactate Dehydrogenase Total Bilirubin Direct Bilirubin CK-MB (CK-2) C-Reactive Protein NT-Pro-B Natriuret Pep Total Protein Albumin Arterial Blood Glucose Urine WBC (Auto) Urine Creatinine Digoxin 02/20/20 02/20/20 02/21/20 18:02 23:55 05:42 WBC RBC Hgb Hct MCHC RDW MCV MCH Lymph % (Auto) [place] % (Auto) [place] # Eos # Lymph # (Auto) [place] # (Auto) Eos # (Auto) Seg Neutrophils % Seg Neuts % (Manual) Baso # (Auto) Lymphocytes % (Manual) Monocytes % (Manual) Eosinophils % (Manual) Basophils % (Manual) Seg Neutrophils # Seg Neutrophils # Man Lymphocytes # (Manual) Monocytes # (Manual) Eosinophils # (Manual) Nucleated RBC % Basophils # (Manual) PT INR APTT Heparin Anti-Xa Level ABG pH POC ABG pO2 ABG pO2 ABG HCO3 ABG O2 Saturation ABG Base Excess POC ABG pCO2 ABG Hemoglobin ABG Oxyhemoglobin ABG Sodium ABG Chloride ABG Glucose Oxyhemoglobin Sodium Potassium Chloride Carbon Dioxide BUN Creatinine Glucose POC Glucose 118 H 125 H 127 H Lactic Acid Calcium Phosphorus Magnesium AST ALT Lactate Dehydrogenase Total Bilirubin Direct Bilirubin CK-MB (CK-2) C-Reactive Protein NT-Pro-B Natriuret Pep Total Protein Albumin Arterial Blood Glucose Urine WBC (Auto) Urine Creatinine Digoxin 02/21/20 02/21/20 02/21/20 12:10 17:35 23:40 WBC RBC Hgb Hct MCHC RDW MCV MCH Lymph % (Auto) [place] % (Auto) [place] # Eos # Lymph # (Auto) [place] # (Auto) Eos # (Auto) Seg Neutrophils % Seg Neuts % (Manual) Baso # (Auto) Lymphocytes % (Manual) Monocytes % (Manual) Eosinophils % (Manual) Basophils % (Manual) Seg Neutrophils # Seg Neutrophils # Man Lymphocytes # (Manual) Monocytes # (Manual) Eosinophils # (Manual) Nucleated RBC % Basophils # (Manual) PT INR APTT Heparin Anti-Xa Level ABG pH POC ABG pO2 ABG pO2 ABG HCO3 ABG O2 Saturation ABG Base Excess POC ABG pCO2 ABG Hemoglobin ABG Oxyhemoglobin ABG Sodium ABG Chloride ABG Glucose Oxyhemoglobin Sodium Potassium Chloride Carbon Dioxide BUN Creatinine Glucose POC Glucose 128 H 113 H 125 H Lactic Acid Calcium Phosphorus Magnesium AST ALT Lactate Dehydrogenase Total Bilirubin Direct Bilirubin CK-MB (CK-2) C-Reactive Protein NT-Pro-B Natriuret Pep Total Protein Albumin Arterial Blood Glucose Urine WBC (Auto) Urine Creatinine Digoxin 02/22/20 02/22/20 02/22/20 05:57 08:06 08:06 WBC RBC Hgb 10.8 L Hct 35.2 L MCHC 31 L RDW 21.8 H MCV 80 L MCH 25 L Lymph % (Auto) [place] % (Auto) [place] # Eos # Lymph # (Auto) [place] # (Auto) Eos # (Auto) Seg Neutrophils % 71.5 H Seg Neuts % (Manual) Baso # (Auto) Lymphocytes % (Manual) Monocytes % (Manual) Eosinophils % (Manual) Basophils % (Manual) Seg Neutrophils # Seg Neutrophils # Man Lymphocytes # (Manual) Monocytes # (Manual) Eosinophils # (Manual) Nucleated RBC % Basophils # (Manual) PT INR APTT Heparin Anti-Xa Level ABG pH POC ABG pO2 ABG pO2 ABG HCO3 ABG O2 Saturation ABG Base Excess POC ABG pCO2 ABG Hemoglobin ABG Oxyhemoglobin ABG Sodium ABG Chloride ABG Glucose Oxyhemoglobin Sodium 146 H Potassium Chloride Carbon Dioxide 34 H BUN 21 H Creatinine 0.4 L Glucose 149 H POC Glucose 138 H Lactic Acid Calcium Phosphorus Magnesium AST ALT Lactate Dehydrogenase Total Bilirubin Direct Bilirubin CK-MB (CK-2) C-Reactive Protein NT-Pro-B Natriuret Pep Total Protein Albumin Arterial Blood Glucose Urine WBC (Auto) Urine Creatinine Digoxin 02/22/20 02/22/20 02/22/20 11:47 17:11 23:25 WBC RBC Hgb Hct MCHC RDW MCV MCH Lymph % (Auto) [place] % (Auto) [place] # Eos # Lymph # (Auto) [place] # (Auto) Eos # (Auto) Seg Neutrophils % Seg Neuts % (Manual) Baso # (Auto) Lymphocytes % (Manual) Monocytes % (Manual) Eosinophils % (Manual) Basophils % (Manual) Seg Neutrophils # Seg Neutrophils # Man Lymphocytes # (Manual) Monocytes # (Manual) Eosinophils # (Manual) Nucleated RBC % Basophils # (Manual) PT INR APTT Heparin Anti-Xa Level ABG pH POC ABG pO2 ABG pO2 ABG HCO3 ABG O2 Saturation ABG Base Excess POC ABG pCO2 ABG Hemoglobin ABG Oxyhemoglobin ABG Sodium ABG Chloride ABG Glucose Oxyhemoglobin Sodium Potassium Chloride Carbon Dioxide BUN Creatinine Glucose POC Glucose 149 H 144 H 142 H Lactic Acid Calcium Phosphorus Magnesium AST ALT Lactate Dehydrogenase Total Bilirubin Direct Bilirubin CK-MB (CK-2) C-Reactive Protein NT-Pro-B Natriuret Pep Total Protein Albumin Arterial Blood Glucose Urine WBC (Auto) Urine Creatinine Digoxin 02/23/20 02/23/20 02/23/20 05:22 11:37 18:14 WBC RBC Hgb Hct MCHC RDW MCV MCH Lymph % (Auto) [place] % (Auto) [place] # Eos # Lymph # (Auto) [place] # (Auto) Eos # (Auto) Seg Neutrophils % Seg Neuts % (Manual) Baso # (Auto) Lymphocytes % (Manual) Monocytes % (Manual) Eosinophils % (Manual) Basophils % (Manual) Seg Neutrophils # Seg Neutrophils # Man Lymphocytes # (Manual) Monocytes # (Manual) Eosinophils # (Manual) Nucleated RBC % Basophils # (Manual) PT INR APTT Heparin Anti-Xa Level ABG pH POC ABG pO2 ABG pO2 ABG HCO3 ABG O2 Saturation ABG Base Excess POC ABG pCO2 ABG Hemoglobin ABG Oxyhemoglobin ABG Sodium ABG Chloride ABG Glucose Oxyhemoglobin Sodium Potassium Chloride Carbon Dioxide BUN Creatinine Glucose POC Glucose 144 H 113 H 127 H Lactic Acid Calcium Phosphorus Magnesium AST ALT Lactate Dehydrogenase Total Bilirubin Direct Bilirubin CK-MB (CK-2) C-Reactive Protein NT-Pro-B Natriuret Pep Total Protein Albumin Arterial Blood Glucose Urine WBC (Auto) Urine Creatinine Digoxin 02/23/20 02/24/20 02/24/20 23:45 05:50 11:24 WBC RBC Hgb Hct MCHC RDW MCV MCH Lymph % (Auto) [place] % (Auto) [place] # Eos # Lymph # (Auto) [place] # (Auto) Eos # (Auto) Seg Neutrophils % Seg Neuts % (Manual) Baso # (Auto) Lymphocytes % (Manual) Monocytes % (Manual) Eosinophils % (Manual) Basophils % (Manual) Seg Neutrophils # Seg Neutrophils # Man Lymphocytes # (Manual) Monocytes # (Manual) Eosinophils # (Manual) Nucleated RBC % Basophils # (Manual) PT INR APTT Heparin Anti-Xa Level ABG pH POC ABG pO2 ABG pO2 ABG HCO3 ABG O2 Saturation ABG Base Excess POC ABG pCO2 ABG Hemoglobin ABG Oxyhemoglobin ABG Sodium ABG Chloride ABG Glucose Oxyhemoglobin Sodium Potassium Chloride Carbon Dioxide BUN Creatinine Glucose POC Glucose 123 H 117 H 126 H Lactic Acid Calcium Phosphorus Magnesium AST ALT Lactate Dehydrogenase Total Bilirubin Direct Bilirubin CK-MB (CK-2) C-Reactive Protein NT-Pro-B Natriuret Pep Total Protein Albumin Arterial Blood Glucose Urine WBC (Auto) Urine Creatinine Digoxin 02/24/20 02/24/20 02/25/20 18:35 23:27 05:20 WBC RBC Hgb Hct MCHC RDW MCV MCH Lymph % (Auto) [place] % (Auto) [place] # Eos # Lymph # (Auto) [place] # (Auto) Eos # (Auto) Seg Neutrophils % Seg Neuts % (Manual) Baso # (Auto) Lymphocytes % (Manual) Monocytes % (Manual) Eosinophils % (Manual) Basophils % (Manual) Seg Neutrophils # Seg Neutrophils # Man Lymphocytes # (Manual) Monocytes # (Manual) Eosinophils # (Manual) Nucleated RBC % Basophils # (Manual) PT INR APTT Heparin Anti-Xa Level ABG pH POC ABG pO2 ABG pO2 ABG HCO3 ABG O2 Saturation ABG Base Excess POC ABG pCO2 ABG Hemoglobin ABG Oxyhemoglobin ABG Sodium ABG Chloride ABG Glucose Oxyhemoglobin Sodium Potassium Chloride Carbon Dioxide BUN Creatinine Glucose POC Glucose 121 H 127 H 133 H Lactic Acid Calcium Phosphorus Magnesium AST ALT Lactate Dehydrogenase Total Bilirubin Direct Bilirubin CK-MB (CK-2) C-Reactive Protein NT-Pro-B Natriuret Pep Total Protein Albumin Arterial Blood Glucose Urine WBC (Auto) Urine Creatinine Digoxin 02/25/20 02/25/20 02/25/20 12:08 17:26 23:33 WBC RBC Hgb Hct MCHC RDW MCV MCH Lymph % (Auto) [place] % (Auto) [place] # Eos # Lymph # (Auto) [place] # (Auto) Eos # (Auto) Seg Neutrophils % Seg Neuts % (Manual) Baso # (Auto) Lymphocytes % (Manual) Monocytes % (Manual) Eosinophils % (Manual) Basophils % (Manual) Seg Neutrophils # Seg Neutrophils # Man Lymphocytes # (Manual) Monocytes # (Manual) Eosinophils # (Manual) Nucleated RBC % Basophils # (Manual) PT INR APTT Heparin Anti-Xa Level ABG pH POC ABG pO2 ABG pO2 ABG HCO3 ABG O2 Saturation ABG Base Excess POC ABG pCO2 ABG Hemoglobin ABG Oxyhemoglobin ABG Sodium ABG Chloride ABG Glucose Oxyhemoglobin Sodium Potassium Chloride Carbon Dioxide BUN Creatinine Glucose POC Glucose 109 H 120 H 120 H Lactic Acid Calcium Phosphorus Magnesium AST ALT Lactate Dehydrogenase Total Bilirubin Direct Bilirubin CK-MB (CK-2) C-Reactive Protein NT-Pro-B Natriuret Pep Total Protein Albumin Arterial Blood Glucose Urine WBC (Auto) Urine Creatinine Digoxin 02/26/20 02/26/20 02/27/20 05:33 07:50 12:13 WBC RBC Hgb Hct MCHC RDW MCV MCH Lymph % (Auto) [place] % (Auto) [place] # Eos # Lymph # (Auto) [place] # (Auto) Eos # (Auto) Seg Neutrophils % Seg Neuts % (Manual) Baso # (Auto) Lymphocytes % (Manual) Monocytes % (Manual) Eosinophils % (Manual) Basophils % (Manual) Seg Neutrophils # Seg Neutrophils # Man Lymphocytes # (Manual) Monocytes # (Manual) Eosinophils # (Manual) Nucleated RBC % Basophils # (Manual) PT INR APTT Heparin Anti-Xa Level ABG pH POC ABG pO2 ABG pO2 ABG HCO3 ABG O2 Saturation ABG Base Excess POC ABG pCO2 ABG Hemoglobin ABG Oxyhemoglobin ABG Sodium ABG Chloride ABG Glucose Oxyhemoglobin Sodium Potassium Chloride Carbon Dioxide BUN Creatinine Glucose POC Glucose 106 H 130 H Lactic Acid Calcium Phosphorus Magnesium AST ALT Lactate Dehydrogenase Total Bilirubin Direct Bilirubin CK-MB (CK-2) C-Reactive Protein NT-Pro-B Natriuret Pep Total Protein Albumin Arterial Blood Glucose Urine WBC (Auto) > 182.0 H Urine Creatinine Digoxin 02/27/20 02/27/20 02/28/20 18:20 23:33 05:01 WBC RBC Hgb Hct MCHC RDW MCV MCH Lymph % (Auto) [place] % (Auto) [place] # Eos # Lymph # (Auto) [place] # (Auto) Eos # (Auto) Seg Neutrophils % Seg Neuts % (Manual) Baso # (Auto) Lymphocytes % (Manual) Monocytes % (Manual) Eosinophils % (Manual) Basophils % (Manual) Seg Neutrophils # Seg Neutrophils # Man Lymphocytes # (Manual) Monocytes # (Manual) Eosinophils # (Manual) Nucleated RBC % Basophils # (Manual) PT INR APTT Heparin Anti-Xa Level ABG pH POC ABG pO2 ABG pO2 ABG HCO3 ABG O2 Saturation ABG Base Excess POC ABG pCO2 ABG Hemoglobin ABG Oxyhemoglobin ABG Sodium ABG Chloride ABG Glucose Oxyhemoglobin Sodium Potassium Chloride Carbon Dioxide BUN Creatinine Glucose POC Glucose 109 H 124 H 134 H Lactic Acid Calcium Phosphorus Magnesium AST ALT Lactate Dehydrogenase Total Bilirubin Direct Bilirubin CK-MB (CK-2) C-Reactive Protein NT-Pro-B Natriuret Pep Total Protein Albumin Arterial Blood Glucose Urine WBC (Auto) Urine Creatinine Digoxin 02/28/20 02/28/20 02/28/20 11:54 18:16 23:03 WBC RBC Hgb Hct MCHC RDW MCV MCH Lymph % (Auto) [place] % (Auto) [place] # Eos # Lymph # (Auto) [place] # (Auto) Eos # (Auto) Seg Neutrophils % Seg Neuts % (Manual) Baso # (Auto) Lymphocytes % (Manual) Monocytes % (Manual) Eosinophils % (Manual) Basophils % (Manual) Seg Neutrophils # Seg Neutrophils # Man Lymphocytes # (Manual) Monocytes # (Manual) Eosinophils # (Manual) Nucleated RBC % Basophils # (Manual) PT INR APTT Heparin Anti-Xa Level ABG pH POC ABG pO2 ABG pO2 ABG HCO3 ABG O2 Saturation ABG Base Excess POC ABG pCO2 ABG Hemoglobin ABG Oxyhemoglobin ABG Sodium ABG Chloride ABG Glucose Oxyhemoglobin Sodium Potassium Chloride Carbon Dioxide BUN Creatinine Glucose POC Glucose 133 H 134 H 146 H Lactic Acid Calcium Phosphorus Magnesium AST ALT Lactate Dehydrogenase Total Bilirubin Direct Bilirubin CK-MB (CK-2) C-Reactive Protein NT-Pro-B Natriuret Pep Total Protein Albumin Arterial Blood Glucose Urine WBC (Auto) Urine Creatinine Digoxin 02/29/20 02/29/20 02/29/20 05:24 11:34 17:12 WBC RBC Hgb Hct MCHC RDW MCV MCH Lymph % (Auto) [place] % (Auto) [place] # Eos # Lymph # (Auto) [place] # (Auto) Eos # (Auto) Seg Neutrophils % Seg Neuts % (Manual) Baso # (Auto) Lymphocytes % (Manual) Monocytes % (Manual) Eosinophils % (Manual) Basophils % (Manual) Seg Neutrophils # Seg Neutrophils # Man Lymphocytes # (Manual) Monocytes # (Manual) Eosinophils # (Manual) Nucleated RBC % Basophils # (Manual) PT INR APTT Heparin Anti-Xa Level ABG pH POC ABG pO2 ABG pO2 ABG HCO3 ABG O2 Saturation ABG Base Excess POC ABG pCO2 ABG Hemoglobin ABG Oxyhemoglobin ABG Sodium ABG Chloride ABG Glucose Oxyhemoglobin Sodium Potassium Chloride Carbon Dioxide BUN Creatinine Glucose POC Glucose 139 H 141 H 157 H Lactic Acid Calcium Phosphorus Magnesium AST ALT Lactate Dehydrogenase Total Bilirubin Direct Bilirubin CK-MB (CK-2) C-Reactive Protein NT-Pro-B Natriuret Pep Total Protein Albumin Arterial Blood Glucose Urine WBC (Auto) Urine Creatinine Digoxin 02/29/20 03/01/20 03/01/20 23:35 06:00 11:53 WBC RBC Hgb Hct MCHC RDW MCV MCH Lymph % (Auto) [place] % (Auto) [place] # Eos # Lymph # (Auto) [place] # (Auto) Eos # (Auto) Seg Neutrophils % Seg Neuts % (Manual) Baso # (Auto) Lymphocytes % (Manual) Monocytes % (Manual) Eosinophils % (Manual) Basophils % (Manual) Seg Neutrophils # Seg Neutrophils # Man Lymphocytes # (Manual) Monocytes # (Manual) Eosinophils # (Manual) Nucleated RBC % Basophils # (Manual) PT INR APTT Heparin Anti-Xa Level ABG pH POC ABG pO2 ABG pO2 ABG HCO3 ABG O2 Saturation ABG Base Excess POC ABG pCO2 ABG Hemoglobin ABG Oxyhemoglobin ABG Sodium ABG Chloride ABG Glucose Oxyhemoglobin Sodium Potassium Chloride Carbon Dioxide BUN Creatinine Glucose POC Glucose 120 H 132 H 136 H Lactic Acid Calcium Phosphorus Magnesium AST ALT Lactate Dehydrogenase Total Bilirubin Direct Bilirubin CK-MB (CK-2) C-Reactive Protein NT-Pro-B Natriuret Pep Total Protein Albumin Arterial Blood Glucose Urine WBC (Auto) Urine Creatinine Digoxin 03/01/20 03/01/20 03/02/20 17:36 23:16 05:12 WBC RBC Hgb Hct MCHC RDW MCV MCH Lymph % (Auto) [place] % (Auto) [place] # Eos # Lymph # (Auto) [place] # (Auto) Eos # (Auto) Seg Neutrophils % Seg Neuts % (Manual) Baso # (Auto) Lymphocytes % (Manual) Monocytes % (Manual) Eosinophils % (Manual) Basophils % (Manual) Seg Neutrophils # Seg Neutrophils # Man Lymphocytes # (Manual) Monocytes # (Manual) Eosinophils # (Manual) Nucleated RBC % Basophils # (Manual) PT INR APTT Heparin Anti-Xa Level ABG pH POC ABG pO2 ABG pO2 ABG HCO3 ABG O2 Saturation ABG Base Excess POC ABG pCO2 ABG Hemoglobin ABG Oxyhemoglobin ABG Sodium ABG Chloride ABG Glucose Oxyhemoglobin Sodium Potassium Chloride Carbon Dioxide BUN Creatinine Glucose POC Glucose 171 H 164 H 176 H Lactic Acid Calcium Phosphorus Magnesium AST ALT Lactate Dehydrogenase Total Bilirubin Direct Bilirubin CK-MB (CK-2) C-Reactive Protein NT-Pro-B Natriuret Pep Total Protein Albumin Arterial Blood Glucose Urine WBC (Auto) Urine Creatinine Digoxin 03/02/20 03/02/20 03/03/20 11:42 18:01 00:06 WBC RBC Hgb Hct MCHC RDW MCV MCH Lymph % (Auto) [place] % (Auto) [place] # Eos # Lymph # (Auto) [place] # (Auto) Eos # (Auto) Seg Neutrophils % Seg Neuts % (Manual) Baso # (Auto) Lymphocytes % (Manual) Monocytes % (Manual) Eosinophils % (Manual) Basophils % (Manual) Seg Neutrophils # Seg Neutrophils # Man Lymphocytes # (Manual) Monocytes # (Manual) Eosinophils # (Manual) Nucleated RBC % Basophils # (Manual) PT INR APTT Heparin Anti-Xa Level ABG pH POC ABG pO2 ABG pO2 ABG HCO3 ABG O2 Saturation ABG Base Excess POC ABG pCO2 ABG Hemoglobin ABG Oxyhemoglobin ABG Sodium ABG Chloride ABG Glucose Oxyhemoglobin Sodium Potassium Chloride Carbon Dioxide BUN Creatinine Glucose POC Glucose 150 H 156 H 156 H Lactic Acid Calcium Phosphorus Magnesium AST ALT Lactate Dehydrogenase Total Bilirubin Direct Bilirubin CK-MB (CK-2) C-Reactive Protein NT-Pro-B Natriuret Pep Total Protein Albumin Arterial Blood Glucose Urine WBC (Auto) Urine Creatinine Digoxin 03/03/20 03/03/20 03/03/20 03:31 11:20 16:55 WBC RBC Hgb Hct MCHC RDW MCV MCH Lymph % (Auto) [place] % (Auto) [place] # Eos # Lymph # (Auto) [place] # (Auto) Eos # (Auto) Seg Neutrophils % Seg Neuts % (Manual) Baso # (Auto) Lymphocytes % (Manual) Monocytes % (Manual) Eosinophils % (Manual) Basophils % (Manual) Seg Neutrophils # Seg Neutrophils # Man Lymphocytes # (Manual) Monocytes # (Manual) Eosinophils # (Manual) Nucleated RBC % Basophils # (Manual) PT INR APTT Heparin Anti-Xa Level ABG pH POC ABG pO2 ABG pO2 ABG HCO3 ABG O2 Saturation ABG Base Excess POC ABG pCO2 ABG Hemoglobin ABG Oxyhemoglobin ABG Sodium ABG Chloride ABG Glucose Oxyhemoglobin Sodium Potassium Chloride Carbon Dioxide BUN Creatinine Glucose POC Glucose 164 H 125 H 211 H Lactic Acid Calcium Phosphorus Magnesium AST ALT Lactate Dehydrogenase Total Bilirubin Direct Bilirubin CK-MB (CK-2) C-Reactive Protein NT-Pro-B Natriuret Pep Total Protein Albumin Arterial Blood Glucose Urine WBC (Auto) Urine Creatinine Digoxin 03/04/20 03/04/20 03/04/20 00:29 05:20 12:09 WBC RBC Hgb Hct MCHC RDW MCV MCH Lymph % (Auto) [place] % (Auto) [place] # Eos # Lymph # (Auto) [place] # (Auto) Eos # (Auto) Seg Neutrophils % Seg Neuts % (Manual) Baso # (Auto) Lymphocytes % (Manual) Monocytes % (Manual) Eosinophils % (Manual) Basophils % (Manual) Seg Neutrophils # Seg Neutrophils # Man Lymphocytes # (Manual) Monocytes # (Manual) Eosinophils # (Manual) Nucleated RBC % Basophils # (Manual) PT INR APTT Heparin Anti-Xa Level ABG pH POC ABG pO2 ABG pO2 ABG HCO3 ABG O2 Saturation ABG Base Excess POC ABG pCO2 ABG Hemoglobin ABG Oxyhemoglobin ABG Sodium ABG Chloride ABG Glucose Oxyhemoglobin Sodium Potassium Chloride Carbon Dioxide BUN Creatinine Glucose POC Glucose 169 H 154 H 197 H Lactic Acid Calcium Phosphorus Magnesium AST ALT Lactate Dehydrogenase Total Bilirubin Direct Bilirubin CK-MB (CK-2) C-Reactive Protein NT-Pro-B Natriuret Pep Total Protein Albumin Arterial Blood Glucose Urine WBC (Auto) Urine Creatinine Digoxin 03/04/20 03/04/20 03/04/20 18:00 20:38 20:38 WBC RBC Hgb 10.1 L Hct 32.7 L MCHC 31 L RDW 24.7 H MCV 79 L MCH 24 L Lymph % (Auto) [place] % (Auto) 8.9 H [place] # Eos # Lymph # (Auto) [place] # (Auto) Eos # (Auto) Seg Neutrophils % Seg Neuts % (Manual) Baso # (Auto) Lymphocytes % (Manual) Monocytes % (Manual) Eosinophils % (Manual) Basophils % (Manual) Seg Neutrophils # Seg Neutrophils # Man Lymphocytes # (Manual) Monocytes # (Manual) Eosinophils # (Manual) Nucleated RBC % Basophils # (Manual) PT INR APTT Heparin Anti-Xa Level ABG pH POC ABG pO2 ABG pO2 ABG HCO3 ABG O2 Saturation ABG Base Excess POC ABG pCO2 ABG Hemoglobin ABG Oxyhemoglobin ABG Sodium ABG Chloride ABG Glucose Oxyhemoglobin Sodium 136 L Potassium Chloride Carbon Dioxide BUN 25 H Creatinine 0.5 L Glucose 148 H POC Glucose 146 H Lactic Acid Calcium Phosphorus Magnesium AST ALT Lactate Dehydrogenase Total Bilirubin Direct Bilirubin CK-MB (CK-2) C-Reactive Protein NT-Pro-B Natriuret Pep Total Protein Albumin Arterial Blood Glucose Urine WBC (Auto) Urine Creatinine Digoxin 03/04/20 03/05/20 03/05/20 23:17 05:44 11:32 WBC RBC Hgb Hct MCHC RDW MCV MCH Lymph % (Auto) [place] % (Auto) [place] # Eos # Lymph # (Auto) [place] # (Auto) Eos # (Auto) Seg Neutrophils % Seg Neuts % (Manual) Baso # (Auto) Lymphocytes % (Manual) Monocytes % (Manual) Eosinophils % (Manual) Basophils % (Manual) Seg Neutrophils # Seg Neutrophils # Man Lymphocytes # (Manual) Monocytes # (Manual) Eosinophils # (Manual) Nucleated RBC % Basophils # (Manual) PT INR APTT Heparin Anti-Xa Level ABG pH POC ABG pO2 ABG pO2 ABG HCO3 ABG O2 Saturation ABG Base Excess POC ABG pCO2 ABG Hemoglobin ABG Oxyhemoglobin ABG Sodium ABG Chloride ABG Glucose Oxyhemoglobin Sodium Potassium Chloride Carbon Dioxide BUN Creatinine Glucose POC Glucose 139 H 155 H 124 H Lactic Acid Calcium Phosphorus Magnesium AST ALT Lactate Dehydrogenase Total Bilirubin Direct Bilirubin CK-MB (CK-2) C-Reactive Protein NT-Pro-B Natriuret Pep Total Protein Albumin Arterial Blood Glucose Urine WBC (Auto) Urine Creatinine Digoxin 03/05/20 03/05/20 03/06/20 17:45 23:18 12:16 WBC RBC Hgb Hct MCHC RDW MCV MCH Lymph % (Auto) [place] % (Auto) [place] # Eos # Lymph # (Auto) [place] # (Auto) Eos # (Auto) Seg Neutrophils % Seg Neuts % (Manual) Baso # (Auto) Lymphocytes % (Manual) Monocytes % (Manual) Eosinophils % (Manual) Basophils % (Manual) Seg Neutrophils # Seg Neutrophils # Man Lymphocytes # (Manual) Monocytes # (Manual) Eosinophils # (Manual) Nucleated RBC % Basophils # (Manual) PT INR APTT Heparin Anti-Xa Level ABG pH POC ABG pO2 ABG pO2 ABG HCO3 ABG O2 Saturation ABG Base Excess POC ABG pCO2 ABG Hemoglobin ABG Oxyhemoglobin ABG Sodium ABG Chloride ABG Glucose Oxyhemoglobin Sodium Potassium Chloride Carbon Dioxide BUN Creatinine Glucose POC Glucose 171 H 114 H 155 H Lactic Acid Calcium Phosphorus Magnesium AST ALT Lactate Dehydrogenase Total Bilirubin Direct Bilirubin CK-MB (CK-2) C-Reactive Protein NT-Pro-B Natriuret Pep Total Protein Albumin Arterial Blood Glucose Urine WBC (Auto) Urine Creatinine Digoxin 03/06/20 03/06/20 03/07/20 17:27 23:48 06:02 WBC RBC Hgb Hct MCHC RDW MCV MCH Lymph % (Auto) [place] % (Auto) [place] # Eos # Lymph # (Auto) [place] # (Auto) Eos # (Auto) Seg Neutrophils % Seg Neuts % (Manual) Baso # (Auto) Lymphocytes % (Manual) Monocytes % (Manual) Eosinophils % (Manual) Basophils % (Manual) Seg Neutrophils # Seg Neutrophils # Man Lymphocytes # (Manual) Monocytes # (Manual) Eosinophils # (Manual) Nucleated RBC % Basophils # (Manual) PT INR APTT Heparin Anti-Xa Level ABG pH POC ABG pO2 ABG pO2 ABG HCO3 ABG O2 Saturation ABG Base Excess POC ABG pCO2 ABG Hemoglobin ABG Oxyhemoglobin ABG Sodium ABG Chloride ABG Glucose Oxyhemoglobin Sodium Potassium Chloride Carbon Dioxide BUN Creatinine Glucose POC Glucose 116 H 142 H 161 H Lactic Acid Calcium Phosphorus Magnesium AST ALT Lactate Dehydrogenase Total Bilirubin Direct Bilirubin CK-MB (CK-2) C-Reactive Protein NT-Pro-B Natriuret Pep Total Protein Albumin Arterial Blood Glucose Urine WBC (Auto) Urine Creatinine Digoxin 03/07/20 03/08/20 03/08/20 11:36 05:18 11:51 WBC RBC Hgb Hct MCHC RDW MCV MCH Lymph % (Auto) [place] % (Auto) [place] # Eos # Lymph # (Auto) [place] # (Auto) Eos # (Auto) Seg Neutrophils % Seg Neuts % (Manual) Baso # (Auto) Lymphocytes % (Manual) Monocytes % (Manual) Eosinophils % (Manual) Basophils % (Manual) Seg Neutrophils # Seg Neutrophils # Man Lymphocytes # (Manual) Monocytes # (Manual) Eosinophils # (Manual) Nucleated RBC % Basophils # (Manual) PT INR APTT Heparin Anti-Xa Level ABG pH POC ABG pO2 ABG pO2 ABG HCO3 ABG O2 Saturation ABG Base Excess POC ABG pCO2 ABG Hemoglobin ABG Oxyhemoglobin ABG Sodium ABG Chloride ABG Glucose Oxyhemoglobin Sodium Potassium Chloride Carbon Dioxide BUN Creatinine Glucose POC Glucose 127 H 142 H 135 H Lactic Acid Calcium Phosphorus Magnesium AST ALT Lactate Dehydrogenase Total Bilirubin Direct Bilirubin CK-MB (CK-2) C-Reactive Protein NT-Pro-B Natriuret Pep Total Protein Albumin Arterial Blood Glucose Urine WBC (Auto) Urine Creatinine Digoxin 03/08/20 03/08/20 03/09/20 18:14 23:45 05:36 WBC RBC Hgb Hct MCHC RDW MCV MCH Lymph % (Auto) [place] % (Auto) [place] # Eos # Lymph # (Auto) [place] # (Auto) Eos # (Auto) Seg Neutrophils % Seg Neuts % (Manual) Baso # (Auto) Lymphocytes % (Manual) Monocytes % (Manual) Eosinophils % (Manual) Basophils % (Manual) Seg Neutrophils # Seg Neutrophils # Man Lymphocytes # (Manual) Monocytes # (Manual) Eosinophils # (Manual) Nucleated RBC % Basophils # (Manual) PT INR APTT Heparin Anti-Xa Level ABG pH POC ABG pO2 ABG pO2 ABG HCO3 ABG O2 Saturation ABG Base Excess POC ABG pCO2 ABG Hemoglobin ABG Oxyhemoglobin ABG Sodium ABG Chloride ABG Glucose Oxyhemoglobin Sodium Potassium Chloride Carbon Dioxide BUN Creatinine Glucose POC Glucose 125 H 143 H 158 H Lactic Acid Calcium Phosphorus Magnesium AST ALT Lactate Dehydrogenase Total Bilirubin Direct Bilirubin CK-MB (CK-2) C-Reactive Protein NT-Pro-B Natriuret Pep Total Protein Albumin Arterial Blood Glucose Urine WBC (Auto) Urine Creatinine Digoxin 03/09/20 03/09/20 03/09/20 06:32 06:32 11:34 WBC RBC Hgb 9.8 L Hct 31.6 L MCHC 31 L RDW 23.1 H MCV 80 L MCH 25 L Lymph % (Auto) 35.1 H [place] % (Auto) 11.4 H [place] # Eos # Lymph # (Auto) [place] # (Auto) Eos # (Auto) Seg Neutrophils % Seg Neuts % (Manual) Baso # (Auto) Lymphocytes % (Manual) Monocytes % (Manual) Eosinophils % (Manual) Basophils % (Manual) Seg Neutrophils # Seg Neutrophils # Man Lymphocytes # (Manual) Monocytes # (Manual) Eosinophils # (Manual) Nucleated RBC % Basophils # (Manual) PT INR APTT Heparin Anti-Xa Level ABG pH POC ABG pO2 ABG pO2 ABG HCO3 ABG O2 Saturation ABG Base Excess POC ABG pCO2 ABG Hemoglobin ABG Oxyhemoglobin ABG Sodium ABG Chloride ABG Glucose Oxyhemoglobin Sodium 136 L Potassium Chloride Carbon Dioxide BUN 25 H Creatinine 0.6 L Glucose 170 H POC Glucose 140 H Lactic Acid Calcium Phosphorus Magnesium AST ALT Lactate Dehydrogenase Total Bilirubin Direct Bilirubin CK-MB (CK-2) C-Reactive Protein NT-Pro-B Natriuret Pep Total Protein Albumin Arterial Blood Glucose Urine WBC (Auto) Urine Creatinine Digoxin 03/09/20 03/09/20 03/10/20 18:10 23:11 05:41 WBC RBC Hgb Hct MCHC RDW MCV MCH Lymph % (Auto) [place] % (Auto) [place] # Eos # Lymph # (Auto) [place] # (Auto) Eos # (Auto) Seg Neutrophils % Seg Neuts % (Manual) Baso # (Auto) Lymphocytes % (Manual) Monocytes % (Manual) Eosinophils % (Manual) Basophils % (Manual) Seg Neutrophils # Seg Neutrophils # Man Lymphocytes # (Manual) Monocytes # (Manual) Eosinophils # (Manual) Nucleated RBC % Basophils # (Manual) PT INR APTT Heparin Anti-Xa Level ABG pH POC ABG pO2 ABG pO2 ABG HCO3 ABG O2 Saturation ABG Base Excess POC ABG pCO2 ABG Hemoglobin ABG Oxyhemoglobin ABG Sodium ABG Chloride ABG Glucose Oxyhemoglobin Sodium Potassium Chloride Carbon Dioxide BUN Creatinine Glucose POC Glucose 153 H 111 H 138 H Lactic Acid Calcium Phosphorus Magnesium AST ALT Lactate Dehydrogenase Total Bilirubin Direct Bilirubin CK-MB (CK-2) C-Reactive Protein NT-Pro-B Natriuret Pep Total Protein Albumin Arterial Blood Glucose Urine WBC (Auto) Urine Creatinine Digoxin 03/10/20 03/10/20 03/10/20 11:15 17:58 23:36 WBC RBC Hgb Hct MCHC RDW MCV MCH Lymph % (Auto) [place] % (Auto) [place] # Eos # Lymph # (Auto) [place] # (Auto) Eos # (Auto) Seg Neutrophils % Seg Neuts % (Manual) Baso # (Auto) Lymphocytes % (Manual) Monocytes % (Manual) Eosinophils % (Manual) Basophils % (Manual) Seg Neutrophils # Seg Neutrophils # Man Lymphocytes # (Manual) Monocytes # (Manual) Eosinophils # (Manual) Nucleated RBC % Basophils # (Manual) PT INR APTT Heparin Anti-Xa Level ABG pH POC ABG pO2 ABG pO2 ABG HCO3 ABG O2 Saturation ABG Base Excess POC ABG pCO2 ABG Hemoglobin ABG Oxyhemoglobin ABG Sodium ABG Chloride ABG Glucose Oxyhemoglobin Sodium Potassium Chloride Carbon Dioxide BUN Creatinine Glucose POC Glucose 141 H 149 H 148 H Lactic Acid Calcium Phosphorus Magnesium AST ALT Lactate Dehydrogenase Total Bilirubin Direct Bilirubin CK-MB (CK-2) C-Reactive Protein NT-Pro-B Natriuret Pep Total Protein Albumin Arterial Blood Glucose Urine WBC (Auto) Urine Creatinine Digoxin 03/11/20 03/11/20 03/12/20 05:55 17:43 04:45 WBC RBC Hgb Hct MCHC RDW MCV MCH Lymph % (Auto) [place] % (Auto) [place] # Eos # Lymph # (Auto) [place] # (Auto) Eos # (Auto) Seg Neutrophils % Seg Neuts % (Manual) Baso # (Auto) Lymphocytes % (Manual) Monocytes % (Manual) Eosinophils % (Manual) Basophils % (Manual) Seg Neutrophils # Seg Neutrophils # Man Lymphocytes # (Manual) Monocytes # (Manual) Eosinophils # (Manual) Nucleated RBC % Basophils # (Manual) PT INR APTT Heparin Anti-Xa Level ABG pH 7.454 H POC ABG pO2 69.2 L ABG pO2 ABG HCO3 ABG O2 Saturation ABG Base Excess POC ABG pCO2 ABG Hemoglobin 11.2 L ABG Oxyhemoglobin ABG Sodium 134.7 L ABG Chloride ABG Glucose 151 H Oxyhemoglobin Sodium Potassium Chloride Carbon Dioxide BUN Creatinine Glucose POC Glucose 181 H 107 H Lactic Acid Calcium Phosphorus Magnesium AST ALT Lactate Dehydrogenase Total Bilirubin Direct Bilirubin CK-MB (CK-2) C-Reactive Protein NT-Pro-B Natriuret Pep Total Protein Albumin Arterial Blood Glucose 151 H Urine WBC (Auto) Urine Creatinine Digoxin 03/12/20 03/12/20 03/12/20 05:36 11:36 17:40 WBC RBC Hgb Hct MCHC RDW MCV MCH Lymph % (Auto) [place] % (Auto) [place] # Eos # Lymph # (Auto) [place] # (Auto) Eos # (Auto) Seg Neutrophils % Seg Neuts % (Manual) Baso # (Auto) Lymphocytes % (Manual) Monocytes % (Manual) Eosinophils % (Manual) Basophils % (Manual) Seg Neutrophils # Seg Neutrophils # Man Lymphocytes # (Manual) Monocytes # (Manual) Eosinophils # (Manual) Nucleated RBC % Basophils # (Manual) PT INR APTT Heparin Anti-Xa Level ABG pH POC ABG pO2 ABG pO2 ABG HCO3 ABG O2 Saturation ABG Base Excess POC ABG pCO2 ABG Hemoglobin ABG Oxyhemoglobin ABG Sodium ABG Chloride ABG Glucose Oxyhemoglobin Sodium Potassium Chloride Carbon Dioxide BUN Creatinine Glucose POC Glucose 137 H 122 H 116 H Lactic Acid Calcium Phosphorus Magnesium AST ALT Lactate Dehydrogenase Total Bilirubin Direct Bilirubin CK-MB (CK-2) C-Reactive Protein NT-Pro-B Natriuret Pep Total Protein Albumin Arterial Blood Glucose Urine WBC (Auto) Urine Creatinine Digoxin 03/12/20 03/13/20 03/13/20 23:17 05:47 11:35 WBC RBC Hgb Hct MCHC RDW MCV MCH Lymph % (Auto) [place] % (Auto) [place] # Eos # Lymph # (Auto) [place] # (Auto) Eos # (Auto) Seg Neutrophils % Seg Neuts % (Manual) Baso # (Auto) Lymphocytes % (Manual) Monocytes % (Manual) Eosinophils % (Manual) Basophils % (Manual) Seg Neutrophils # Seg Neutrophils # Man Lymphocytes # (Manual) Monocytes # (Manual) Eosinophils # (Manual) Nucleated RBC % Basophils # (Manual) PT INR APTT Heparin Anti-Xa Level ABG pH POC ABG pO2 ABG pO2 ABG HCO3 ABG O2 Saturation ABG Base Excess POC ABG pCO2 ABG Hemoglobin ABG Oxyhemoglobin ABG Sodium ABG Chloride ABG Glucose Oxyhemoglobin Sodium Potassium Chloride Carbon Dioxide BUN Creatinine Glucose POC Glucose 118 H 142 H 146 H Lactic Acid Calcium Phosphorus Magnesium AST ALT Lactate Dehydrogenase Total Bilirubin Direct Bilirubin CK-MB (CK-2) C-Reactive Protein NT-Pro-B Natriuret Pep Total Protein Albumin Arterial Blood Glucose Urine WBC (Auto) Urine Creatinine Digoxin 03/13/20 03/13/20 03/14/20 17:25 23:27 05:04 WBC RBC Hgb Hct MCHC RDW MCV MCH Lymph % (Auto) [place] % (Auto) [place] # Eos # Lymph # (Auto) [place] # (Auto) Eos # (Auto) Seg Neutrophils % Seg Neuts % (Manual) Baso # (Auto) Lymphocytes % (Manual) Monocytes % (Manual) Eosinophils % (Manual) Basophils % (Manual) Seg Neutrophils # Seg Neutrophils # Man Lymphocytes # (Manual) Monocytes # (Manual) Eosinophils # (Manual) Nucleated RBC % Basophils # (Manual) PT INR APTT Heparin Anti-Xa Level ABG pH POC ABG pO2 ABG pO2 ABG HCO3 ABG O2 Saturation ABG Base Excess POC ABG pCO2 ABG Hemoglobin ABG Oxyhemoglobin ABG Sodium ABG Chloride ABG Glucose Oxyhemoglobin Sodium Potassium Chloride Carbon Dioxide BUN Creatinine Glucose POC Glucose 138 H 160 H 159 H Lactic Acid Calcium Phosphorus Magnesium AST ALT Lactate Dehydrogenase Total Bilirubin Direct Bilirubin CK-MB (CK-2) C-Reactive Protein NT-Pro-B Natriuret Pep Total Protein Albumin Arterial Blood Glucose Urine WBC (Auto) Urine Creatinine Digoxin 03/14/20 03/14/20 03/15/20 11:19 16:18 00:18 WBC RBC Hgb Hct MCHC RDW MCV MCH Lymph % (Auto) [place] % (Auto) [place] # Eos # Lymph # (Auto) [place] # (Auto) Eos # (Auto) Seg Neutrophils % Seg Neuts % (Manual) Baso # (Auto) Lymphocytes % (Manual) Monocytes % (Manual) Eosinophils % (Manual) Basophils % (Manual) Seg Neutrophils # Seg Neutrophils # Man Lymphocytes # (Manual) Monocytes # (Manual) Eosinophils # (Manual) Nucleated RBC % Basophils # (Manual) PT INR APTT Heparin Anti-Xa Level ABG pH POC ABG pO2 ABG pO2 ABG HCO3 ABG O2 Saturation ABG Base Excess POC ABG pCO2 ABG Hemoglobin ABG Oxyhemoglobin ABG Sodium ABG Chloride ABG Glucose Oxyhemoglobin Sodium Potassium Chloride Carbon Dioxide BUN Creatinine Glucose POC Glucose 130 H 170 H 125 H Lactic Acid Calcium Phosphorus Magnesium AST ALT Lactate Dehydrogenase Total Bilirubin Direct Bilirubin CK-MB (CK-2) C-Reactive Protein NT-Pro-B Natriuret Pep Total Protein Albumin Arterial Blood Glucose Urine WBC (Auto) Urine Creatinine Digoxin 03/15/20 03/15/20 03/15/20 04:05 04:05 05:36 WBC RBC Hgb 10.0 L Hct 31.6 L MCHC RDW 22.4 H MCV 77 L MCH 24 L Lymph % (Auto) 36.2 H [place] % (Auto) 9.4 H [place] # Eos # Lymph # (Auto) [place] # (Auto) Eos # (Auto) Seg Neutrophils % Seg Neuts % (Manual) Baso # (Auto) Lymphocytes % (Manual) Monocytes % (Manual) Eosinophils % (Manual) Basophils % (Manual) Seg Neutrophils # Seg Neutrophils # Man Lymphocytes # (Manual) Monocytes # (Manual) Eosinophils # (Manual) Nucleated RBC % Basophils # (Manual) PT INR APTT Heparin Anti-Xa Level ABG pH POC ABG pO2 ABG pO2 ABG HCO3 ABG O2 Saturation ABG Base Excess POC ABG pCO2 ABG Hemoglobin ABG Oxyhemoglobin ABG Sodium ABG Chloride ABG Glucose Oxyhemoglobin Sodium Potassium Chloride Carbon Dioxide 32 H BUN Creatinine 0.5 L Glucose 141 H POC Glucose 130 H Lactic Acid Calcium Phosphorus Magnesium AST ALT Lactate Dehydrogenase Total Bilirubin Direct Bilirubin CK-MB (CK-2) C-Reactive Protein NT-Pro-B Natriuret Pep Total Protein Albumin Arterial Blood Glucose Urine WBC (Auto) Urine Creatinine Digoxin 03/15/20 03/15/20 03/15/20 11:41 17:38 23:16 WBC RBC Hgb Hct MCHC RDW MCV MCH Lymph % (Auto) [place] % (Auto) [place] # Eos # Lymph # (Auto) [place] # (Auto) Eos # (Auto) Seg Neutrophils % Seg Neuts % (Manual) Baso # (Auto) Lymphocytes % (Manual) Monocytes % (Manual) Eosinophils % (Manual) Basophils % (Manual) Seg Neutrophils # Seg Neutrophils # Man Lymphocytes # (Manual) Monocytes # (Manual) Eosinophils # (Manual) Nucleated RBC % Basophils # (Manual) PT INR APTT Heparin Anti-Xa Level ABG pH POC ABG pO2 ABG pO2 ABG HCO3 ABG O2 Saturation ABG Base Excess POC ABG pCO2 ABG Hemoglobin ABG Oxyhemoglobin ABG Sodium ABG Chloride ABG Glucose Oxyhemoglobin Sodium Potassium Chloride Carbon Dioxide BUN Creatinine Glucose POC Glucose 114 H 144 H 116 H Lactic Acid Calcium Phosphorus Magnesium AST ALT Lactate Dehydrogenase Total Bilirubin Direct Bilirubin CK-MB (CK-2) C-Reactive Protein NT-Pro-B Natriuret Pep Total Protein Albumin Arterial Blood Glucose Urine WBC (Auto) Urine Creatinine Digoxin 03/16/20 03/16/20 03/16/20 05:39 13:16 18:29 WBC RBC Hgb Hct MCHC RDW MCV MCH Lymph % (Auto) [place] % (Auto) [place] # Eos # Lymph # (Auto) [place] # (Auto) Eos # (Auto) Seg Neutrophils % Seg Neuts % (Manual) Baso # (Auto) Lymphocytes % (Manual) Monocytes % (Manual) Eosinophils % (Manual) Basophils % (Manual) Seg Neutrophils # Seg Neutrophils # Man Lymphocytes # (Manual) Monocytes # (Manual) Eosinophils # (Manual) Nucleated RBC % Basophils # (Manual) PT INR APTT Heparin Anti-Xa Level ABG pH POC ABG pO2 ABG pO2 ABG HCO3 ABG O2 Saturation ABG Base Excess POC ABG pCO2 ABG Hemoglobin ABG Oxyhemoglobin ABG Sodium ABG Chloride ABG Glucose Oxyhemoglobin Sodium Potassium Chloride Carbon Dioxide BUN Creatinine Glucose POC Glucose 125 H 153 H 135 H Lactic Acid Calcium Phosphorus Magnesium AST ALT Lactate Dehydrogenase Total Bilirubin Direct Bilirubin CK-MB (CK-2) C-Reactive Protein NT-Pro-B Natriuret Pep Total Protein Albumin Arterial Blood Glucose Urine WBC (Auto) Urine Creatinine Digoxin 03/16/20 03/17/20 03/17/20 23:32 05:50 11:38 WBC RBC Hgb Hct MCHC RDW MCV MCH Lymph % (Auto) [place] % (Auto) [place] # Eos # Lymph # (Auto) [place] # (Auto) Eos # (Auto) Seg Neutrophils % Seg Neuts % (Manual) Baso # (Auto) Lymphocytes % (Manual) Monocytes % (Manual) Eosinophils % (Manual) Basophils % (Manual) Seg Neutrophils # Seg Neutrophils # Man Lymphocytes # (Manual) Monocytes # (Manual) Eosinophils # (Manual) Nucleated RBC % Basophils # (Manual) PT INR APTT Heparin Anti-Xa Level ABG pH POC ABG pO2 ABG pO2 ABG HCO3 ABG O2 Saturation ABG Base Excess POC ABG pCO2 ABG Hemoglobin ABG Oxyhemoglobin ABG Sodium ABG Chloride ABG Glucose Oxyhemoglobin Sodium Potassium Chloride Carbon Dioxide BUN Creatinine Glucose POC Glucose 137 H 160 H 134 H Lactic Acid Calcium Phosphorus Magnesium AST ALT Lactate Dehydrogenase Total Bilirubin Direct Bilirubin CK-MB (CK-2) C-Reactive Protein NT-Pro-B Natriuret Pep Total Protein Albumin Arterial Blood Glucose Urine WBC (Auto) Urine Creatinine Digoxin 03/17/20 03/17/20 03/18/20 16:59 23:29 05:39 WBC RBC Hgb Hct MCHC RDW MCV MCH Lymph % (Auto) [place] % (Auto) [place] # Eos # Lymph # (Auto) [place] # (Auto) Eos # (Auto) Seg Neutrophils % Seg Neuts % (Manual) Baso # (Auto) Lymphocytes % (Manual) Monocytes % (Manual) Eosinophils % (Manual) Basophils % (Manual) Seg Neutrophils # Seg Neutrophils # Man Lymphocytes # (Manual) Monocytes # (Manual) Eosinophils # (Manual) Nucleated RBC % Basophils # (Manual) PT INR APTT Heparin Anti-Xa Level ABG pH POC ABG pO2 ABG pO2 ABG HCO3 ABG O2 Saturation ABG Base Excess POC ABG pCO2 ABG Hemoglobin ABG Oxyhemoglobin ABG Sodium ABG Chloride ABG Glucose Oxyhemoglobin Sodium Potassium Chloride Carbon Dioxide BUN Creatinine Glucose POC Glucose 120 H 141 H 181 H Lactic Acid Calcium Phosphorus Magnesium AST ALT Lactate Dehydrogenase Total Bilirubin Direct Bilirubin CK-MB (CK-2) C-Reactive Protein NT-Pro-B Natriuret Pep Total Protein Albumin Arterial Blood Glucose Urine WBC (Auto) Urine Creatinine Digoxin 03/18/20 03/18/20 03/18/20 11:18 15:34 17:42 WBC RBC Hgb Hct MCHC RDW MCV MCH Lymph % (Auto) [place] % (Auto) [place] # Eos # Lymph # (Auto) [place] # (Auto) Eos # (Auto) Seg Neutrophils % Seg Neuts % (Manual) Baso # (Auto) Lymphocytes % (Manual) Monocytes % (Manual) Eosinophils % (Manual) Basophils % (Manual) Seg Neutrophils # Seg Neutrophils # Man Lymphocytes # (Manual) Monocytes # (Manual) Eosinophils # (Manual) Nucleated RBC % Basophils # (Manual) PT INR APTT Heparin Anti-Xa Level ABG pH POC ABG pO2 ABG pO2 ABG HCO3 ABG O2 Saturation ABG Base Excess POC ABG pCO2 ABG Hemoglobin ABG Oxyhemoglobin ABG Sodium ABG Chloride ABG Glucose Oxyhemoglobin Sodium 132 L Potassium 5.4 H D Chloride 96.8 L Carbon Dioxide BUN 24 H Creatinine 0.6 L Glucose 164 H POC Glucose 142 H 118 H Lactic Acid Calcium Phosphorus Magnesium AST ALT Lactate Dehydrogenase Total Bilirubin Direct Bilirubin CK-MB (CK-2) C-Reactive Protein NT-Pro-B Natriuret Pep Total Protein 6.2 L Albumin 2.8 L Arterial Blood Glucose Urine WBC (Auto) Urine Creatinine Digoxin 03/18/20 03/19/20 03/19/20 23:57 05:40 07:50 WBC RBC Hgb Hct MCHC RDW MCV MCH Lymph % (Auto) [place] % (Auto) [place] # Eos # Lymph # (Auto) [place] # (Auto) Eos # (Auto) Seg Neutrophils % Seg Neuts % (Manual) Baso # (Auto) Lymphocytes % (Manual) Monocytes % (Manual) Eosinophils % (Manual) Basophils % (Manual) Seg Neutrophils # Seg Neutrophils # Man Lymphocytes # (Manual) Monocytes # (Manual) Eosinophils # (Manual) Nucleated RBC % Basophils # (Manual) PT INR APTT Heparin Anti-Xa Level ABG pH POC ABG pO2 ABG pO2 ABG HCO3 ABG O2 Saturation ABG Base Excess POC ABG pCO2 ABG Hemoglobin ABG Oxyhemoglobin ABG Sodium ABG Chloride ABG Glucose Oxyhemoglobin Sodium 136 L Potassium Chloride 97.3 L Carbon Dioxide 31 H BUN 22 H Creatinine 0.5 L Glucose 160 H POC Glucose 127 H 136 H Lactic Acid Calcium Phosphorus Magnesium AST ALT Lactate Dehydrogenase Total Bilirubin Direct Bilirubin CK-MB (CK-2) C-Reactive Protein NT-Pro-B Natriuret Pep Total Protein Albumin Arterial Blood Glucose Urine WBC (Auto) Urine Creatinine Digoxin 03/19/20 03/19/20 03/20/20 12:21 17:27 00:31 WBC RBC Hgb Hct MCHC RDW MCV MCH Lymph % (Auto) [place] % (Auto) [place] # Eos # Lymph # (Auto) [place] # (Auto) Eos # (Auto) Seg Neutrophils % Seg Neuts % (Manual) Baso # (Auto) Lymphocytes % (Manual) Monocytes % (Manual) Eosinophils % (Manual) Basophils % (Manual) Seg Neutrophils # Seg Neutrophils # Man Lymphocytes # (Manual) Monocytes # (Manual) Eosinophils # (Manual) Nucleated RBC % Basophils # (Manual) PT INR APTT Heparin Anti-Xa Level ABG pH POC ABG pO2 ABG pO2 ABG HCO3 ABG O2 Saturation ABG Base Excess POC ABG pCO2 ABG Hemoglobin ABG Oxyhemoglobin ABG Sodium ABG Chloride ABG Glucose Oxyhemoglobin Sodium Potassium Chloride Carbon Dioxide BUN Creatinine Glucose POC Glucose 147 H 152 H 132 H Lactic Acid Calcium Phosphorus Magnesium AST ALT Lactate Dehydrogenase Total Bilirubin Direct Bilirubin CK-MB (CK-2) C-Reactive Protein NT-Pro-B Natriuret Pep Total Protein Albumin Arterial Blood Glucose Urine WBC (Auto) Urine Creatinine Digoxin 03/20/20 03/20/20 03/20/20 05:59 11:45 17:24 WBC RBC Hgb Hct MCHC RDW MCV MCH Lymph % (Auto) [place] % (Auto) [place] # Eos # Lymph # (Auto) [place] # (Auto) Eos # (Auto) Seg Neutrophils % Seg Neuts % (Manual) Baso # (Auto) Lymphocytes % (Manual) Monocytes % (Manual) Eosinophils % (Manual) Basophils % (Manual) Seg Neutrophils # Seg Neutrophils # Man Lymphocytes # (Manual) Monocytes # (Manual) Eosinophils # (Manual) Nucleated RBC % Basophils # (Manual) PT INR APTT Heparin Anti-Xa Level ABG pH POC ABG pO2 ABG pO2 ABG HCO3 ABG O2 Saturation ABG Base Excess POC ABG pCO2 ABG Hemoglobin ABG Oxyhemoglobin ABG Sodium ABG Chloride ABG Glucose Oxyhemoglobin Sodium Potassium Chloride Carbon Dioxide BUN Creatinine Glucose POC Glucose 146 H 142 H 107 H Lactic Acid Calcium Phosphorus Magnesium AST ALT Lactate Dehydrogenase Total Bilirubin Direct Bilirubin CK-MB (CK-2) C-Reactive Protein NT-Pro-B Natriuret Pep Total Protein Albumin Arterial Blood Glucose Urine WBC (Auto) Urine Creatinine Digoxin 03/20/20 03/21/20 03/21/20 23:38 05:38 11:22 WBC RBC Hgb Hct MCHC RDW MCV MCH Lymph % (Auto) [place] % (Auto) [place] # Eos # Lymph # (Auto) [place]ley # (Auto) Eos # (Auto) Seg Neutrophils % Seg Neuts % (Manual) Baso # (Auto) Lymphocytes % (Manual) Monocytes % (Manual) Eosinophils % (Manual) Basophils % (Manual) Seg Neutrophils # Seg Neutrophils # Man Lymphocytes # (Manual) Monocytes # (Manual) Eosinophils # (Manual) Nucleated RBC % Basophils # (Manual) PT INR APTT Heparin Anti-Xa Level ABG pH POC ABG pO2 ABG pO2 ABG HCO3 ABG O2 Saturation ABG Base Excess POC ABG pCO2 ABG Hemoglobin ABG Oxyhemoglobin ABG Sodium ABG Chloride ABG Glucose Oxyhemoglobin Sodium Potassium Chloride Carbon Dioxide BUN Creatinine Glucose POC Glucose 115 H 133 H 137 H Lactic Acid Calcium Phosphorus Magnesium AST ALT Lactate Dehydrogenase Total Bilirubin Direct Bilirubin CK-MB (CK-2) C-Reactive Protein NT-Pro-B Natriuret Pep Total Protein Albumin Arterial Blood Glucose Urine WBC (Auto) Urine Creatinine Digoxin 03/21/20 03/22/20 03/22/20 18:26 00:10 05:29 WBC RBC Hgb Hct MCHC RDW MCV MCH Lymph % (Auto) [place] % (Auto) [place] # Eos # Lymph # (Auto) [place] # (Auto) Eos # (Auto) Seg Neutrophils % Seg Neuts % (Manual) Baso # (Auto) Lymphocytes % (Manual) Monocytes % (Manual) Eosinophils % (Manual) Basophils % (Manual) Seg Neutrophils # Seg Neutrophils # Man Lymphocytes # (Manual) Monocytes # (Manual) Eosinophils # (Manual) Nucleated RBC % Basophils # (Manual) PT INR APTT Heparin Anti-Xa Level ABG pH POC ABG pO2 ABG pO2 ABG HCO3 ABG O2 Saturation ABG Base Excess POC ABG pCO2 ABG Hemoglobin ABG Oxyhemoglobin ABG Sodium ABG Chloride ABG Glucose Oxyhemoglobin Sodium Potassium Chloride Carbon Dioxide BUN Creatinine Glucose POC Glucose 200 H 123 H 156 H Lactic Acid Calcium Phosphorus Magnesium AST ALT Lactate Dehydrogenase Total Bilirubin Direct Bilirubin CK-MB (CK-2) C-Reactive Protein NT-Pro-B Natriuret Pep Total Protein Albumin Arterial Blood Glucose Urine WBC (Auto) Urine Creatinine Digoxin 03/22/20 03/22/20 03/22/20 06:39 06:39 06:39 WBC RBC Hgb 9.7 L Hct 30.7 L MCHC RDW 22.2 H MCV 77 L MCH 25 L Lymph % (Auto) [place] % (Auto) 9.0 H [place] # Eos # Lymph # (Auto) [place] # (Auto) Eos # (Auto) Seg Neutrophils % Seg Neuts % (Manual) Baso # (Auto) Lymphocytes % (Manual) Monocytes % (Manual) Eosinophils % (Manual) Basophils % (Manual) Seg Neutrophils # Seg Neutrophils # Man Lymphocytes # (Manual) Monocytes # (Manual) Eosinophils # (Manual) Nucleated RBC % Basophils # (Manual) PT INR APTT Heparin Anti-Xa Level ABG pH POC ABG pO2 ABG pO2 ABG HCO3 ABG O2 Saturation ABG Base Excess POC ABG pCO2 ABG Hemoglobin ABG Oxyhemoglobin ABG Sodium ABG Chloride ABG Glucose Oxyhemoglobin Sodium Potassium Chloride Carbon Dioxide 33 H BUN Creatinine 0.5 L Glucose 147 H POC Glucose Lactic Acid Calcium Phosphorus Magnesium AST ALT Lactate Dehydrogenase Total Bilirubin Direct Bilirubin CK-MB (CK-2) C-Reactive Protein NT-Pro-B Natriuret Pep Total Protein Albumin Arterial Blood Glucose Urine WBC (Auto) Urine Creatinine Digoxin 0.8 L 03/22/20 03/22/20 03/22/20 11:22 17:49 23:38 WBC RBC Hgb Hct MCHC RDW MCV MCH Lymph % (Auto) [place] % (Auto) [place] # Eos # Lymph # (Auto) [place] # (Auto) Eos # (Auto) Seg Neutrophils % Seg Neuts % (Manual) Baso # (Auto) Lymphocytes % (Manual) Monocytes % (Manual) Eosinophils % (Manual) Basophils % (Manual) Seg Neutrophils # Seg Neutrophils # Man Lymphocytes # (Manual) Monocytes # (Manual) Eosinophils # (Manual) Nucleated RBC % Basophils # (Manual) PT INR APTT Heparin Anti-Xa Level ABG pH POC ABG pO2 ABG pO2 ABG HCO3 ABG O2 Saturation ABG Base Excess POC ABG pCO2 ABG Hemoglobin ABG Oxyhemoglobin ABG Sodium ABG Chloride ABG Glucose Oxyhemoglobin Sodium Potassium Chloride Carbon Dioxide BUN Creatinine Glucose POC Glucose 159 H 119 H 129 H Lactic Acid Calcium Phosphorus Magnesium AST ALT Lactate Dehydrogenase Total Bilirubin Direct Bilirubin CK-MB (CK-2) C-Reactive Protein NT-Pro-B Natriuret Pep Total Protein Albumin Arterial Blood Glucose Urine WBC (Auto) Urine Creatinine Digoxin 03/23/20 03/23/20 03/23/20 05:02 11:38 17:01 WBC RBC Hgb Hct MCHC RDW MCV MCH Lymph % (Auto) [place] % (Auto) [place] # Eos # Lymph # (Auto) [place] # (Auto) Eos # (Auto) Seg Neutrophils % Seg Neuts % (Manual) Baso # (Auto) Lymphocytes % (Manual) Monocytes % (Manual) Eosinophils % (Manual) Basophils % (Manual) Seg Neutrophils # Seg Neutrophils # Man Lymphocytes # (Manual) Monocytes # (Manual) Eosinophils # (Manual) Nucleated RBC % Basophils # (Manual) PT INR APTT Heparin Anti-Xa Level ABG pH POC ABG pO2 ABG pO2 ABG HCO3 ABG O2 Saturation ABG Base Excess POC ABG pCO2 ABG Hemoglobin ABG Oxyhemoglobin ABG Sodium ABG Chloride ABG Glucose Oxyhemoglobin Sodium Potassium Chloride Carbon Dioxide BUN Creatinine Glucose POC Glucose 136 H 129 H 122 H Lactic Acid Calcium Phosphorus Magnesium AST ALT Lactate Dehydrogenase Total Bilirubin Direct Bilirubin CK-MB (CK-2) C-Reactive Protein NT-Pro-B Natriuret Pep Total Protein Albumin Arterial Blood Glucose Urine WBC (Auto) Urine Creatinine Digoxin 03/23/20 03/24/20 03/24/20 23:35 06:55 11:43 WBC RBC Hgb Hct MCHC RDW MCV MCH Lymph % (Auto) [place] % (Auto) [place] # Eos # Lymph # (Auto) [place] # (Auto) Eos # (Auto) Seg Neutrophils % Seg Neuts % (Manual) Baso # (Auto) Lymphocytes % (Manual) Monocytes % (Manual) Eosinophils % (Manual) Basophils % (Manual) Seg Neutrophils # Seg Neutrophils # Man Lymphocytes # (Manual) Monocytes # (Manual) Eosinophils # (Manual) Nucleated RBC % Basophils # (Manual) PT INR APTT Heparin Anti-Xa Level ABG pH POC ABG pO2 ABG pO2 ABG HCO3 ABG O2 Saturation ABG Base Excess POC ABG pCO2 ABG Hemoglobin ABG Oxyhemoglobin ABG Sodium ABG Chloride ABG Glucose Oxyhemoglobin Sodium Potassium Chloride Carbon Dioxide BUN Creatinine Glucose POC Glucose 115 H 122 H 135 H Lactic Acid Calcium Phosphorus Magnesium AST ALT Lactate Dehydrogenase Total Bilirubin Direct Bilirubin CK-MB (CK-2) C-Reactive Protein NT-Pro-B Natriuret Pep Total Protein Albumin Arterial Blood Glucose Urine WBC (Auto) Urine Creatinine Digoxin 03/24/20 03/24/20 03/25/20 17:18 23:27 05:45 WBC RBC Hgb Hct MCHC RDW MCV MCH Lymph % (Auto) [place] % (Auto) [place] # Eos # Lymph # (Auto) [place] # (Auto) Eos # (Auto) Seg Neutrophils % Seg Neuts % (Manual) Baso # (Auto) Lymphocytes % (Manual) Monocytes % (Manual) Eosinophils % (Manual) Basophils % (Manual) Seg Neutrophils # Seg Neutrophils # Man Lymphocytes # (Manual) Monocytes # (Manual) Eosinophils # (Manual) Nucleated RBC % Basophils # (Manual) PT INR APTT Heparin Anti-Xa Level ABG pH POC ABG pO2 ABG pO2 ABG HCO3 ABG O2 Saturation ABG Base Excess POC ABG pCO2 ABG Hemoglobin ABG Oxyhemoglobin ABG Sodium ABG Chloride ABG Glucose Oxyhemoglobin Sodium Potassium Chloride Carbon Dioxide BUN Creatinine Glucose POC Glucose 125 H 124 H 176 H Lactic Acid Calcium Phosphorus Magnesium AST ALT Lactate Dehydrogenase Total Bilirubin Direct Bilirubin CK-MB (CK-2) C-Reactive Protein NT-Pro-B Natriuret Pep Total Protein Albumin Arterial Blood Glucose Urine WBC (Auto) Urine Creatinine Digoxin 03/25/20 03/25/20 03/26/20 11:15 17:00 00:12 WBC RBC Hgb Hct MCHC RDW MCV MCH Lymph % (Auto) [place] % (Auto) [place] # Eos # Lymph # (Auto) [place] # (Auto) Eos # (Auto) Seg Neutrophils % Seg Neuts % (Manual) Baso # (Auto) Lymphocytes % (Manual) Monocytes % (Manual) Eosinophils % (Manual) Basophils % (Manual) Seg Neutrophils # Seg Neutrophils # Man Lymphocytes # (Manual) Monocytes # (Manual) Eosinophils # (Manual) Nucleated RBC % Basophils # (Manual) PT INR APTT Heparin Anti-Xa Level ABG pH POC ABG pO2 ABG pO2 ABG HCO3 ABG O2 Saturation ABG Base Excess POC ABG pCO2 ABG Hemoglobin ABG Oxyhemoglobin ABG Sodium ABG Chloride ABG Glucose Oxyhemoglobin Sodium Potassium Chloride Carbon Dioxide BUN Creatinine Glucose POC Glucose 147 H 111 H 115 H Lactic Acid Calcium Phosphorus Magnesium AST ALT Lactate Dehydrogenase Total Bilirubin Direct Bilirubin CK-MB (CK-2) C-Reactive Protein NT-Pro-B Natriuret Pep Total Protein Albumin Arterial Blood Glucose Urine WBC (Auto) Urine Creatinine Digoxin 03/26/20 03/26/20 03/26/20 04:20 05:28 16:21 WBC RBC Hgb Hct MCHC RDW MCV MCH Lymph % (Auto) [place] % (Auto) [place] # Eos # Lymph # (Auto) [place] # (Auto) Eos # (Auto) Seg Neutrophils % Seg Neuts % (Manual) Baso # (Auto) Lymphocytes % (Manual) Monocytes % (Manual) Eosinophils % (Manual) Basophils % (Manual) Seg Neutrophils # Seg Neutrophils # Man Lymphocytes # (Manual) Monocytes # (Manual) Eosinophils # (Manual) Nucleated RBC % Basophils # (Manual) PT INR APTT Heparin Anti-Xa Level ABG pH POC ABG pO2 ABG pO2 ABG HCO3 ABG O2 Saturation ABG Base Excess POC ABG pCO2 ABG Hemoglobin ABG Oxyhemoglobin ABG Sodium ABG Chloride ABG Glucose Oxyhemoglobin Sodium Potassium Chloride Carbon Dioxide BUN Creatinine 0.6 L Glucose 182 H POC Glucose 158 H 137 H Lactic Acid Calcium Phosphorus Magnesium AST ALT Lactate Dehydrogenase Total Bilirubin Direct Bilirubin CK-MB (CK-2) C-Reactive Protein NT-Pro-B Natriuret Pep Total Protein Albumin Arterial Blood Glucose Urine WBC (Auto) Urine Creatinine Digoxin 03/27/20 03/27/20 03/27/20 00:22 05:49 11:16 WBC RBC Hgb Hct MCHC RDW MCV MCH Lymph % (Auto) [place] % (Auto) [place] # Eos # Lymph # (Auto) [place] # (Auto) Eos # (Auto) Seg Neutrophils % Seg Neuts % (Manual) Baso # (Auto) Lymphocytes % (Manual) Monocytes % (Manual) Eosinophils % (Manual) Basophils % (Manual) Seg Neutrophils # Seg Neutrophils # Man Lymphocytes # (Manual) Monocytes # (Manual) Eosinophils # (Manual) Nucleated RBC % Basophils # (Manual) PT INR APTT Heparin Anti-Xa Level ABG pH POC ABG pO2 ABG pO2 ABG HCO3 ABG O2 Saturation ABG Base Excess POC ABG pCO2 ABG Hemoglobin ABG Oxyhemoglobin ABG Sodium ABG Chloride ABG Glucose Oxyhemoglobin Sodium Potassium Chloride Carbon Dioxide BUN Creatinine Glucose POC Glucose 155 H 117 H 139 H Lactic Acid Calcium Phosphorus Magnesium AST ALT Lactate Dehydrogenase Total Bilirubin Direct Bilirubin CK-MB (CK-2) C-Reactive Protein NT-Pro-B Natriuret Pep Total Protein Albumin Arterial Blood Glucose Urine WBC (Auto) Urine Creatinine Digoxin 03/27/20 03/27/20 03/28/20 17:23 23:23 05:36 WBC RBC Hgb Hct MCHC RDW MCV MCH Lymph % (Auto) [place] % (Auto) [place] # Eos # Lymph # (Auto) [place] # (Auto) Eos # (Auto) Seg Neutrophils % Seg Neuts % (Manual) Baso # (Auto) Lymphocytes % (Manual) Monocytes % (Manual) Eosinophils % (Manual) Basophils % (Manual) Seg Neutrophils # Seg Neutrophils # Man Lymphocytes # (Manual) Monocytes # (Manual) Eosinophils # (Manual) Nucleated RBC % Basophils # (Manual) PT INR APTT Heparin Anti-Xa Level ABG pH POC ABG pO2 ABG pO2 ABG HCO3 ABG O2 Saturation ABG Base Excess POC ABG pCO2 ABG Hemoglobin ABG Oxyhemoglobin ABG Sodium ABG Chloride ABG Glucose Oxyhemoglobin Sodium Potassium Chloride Carbon Dioxide BUN Creatinine Glucose POC Glucose 130 H 137 H 167 H Lactic Acid Calcium Phosphorus Magnesium AST ALT Lactate Dehydrogenase Total Bilirubin Direct Bilirubin CK-MB (CK-2) C-Reactive Protein NT-Pro-B Natriuret Pep Total Protein Albumin Arterial Blood Glucose Urine WBC (Auto) Urine Creatinine Digoxin 03/28/20 12:28 WBC RBC Hgb Hct MCHC RDW MCV MCH Lymph % (Auto) [place] % (Auto) [place] # Eos # Lymph # (Auto) [place] # (Auto) Eos # (Auto) Seg Neutrophils % Seg Neuts % (Manual) Baso # (Auto) Lymphocytes % (Manual) Monocytes % (Manual) Eosinophils % (Manual) Basophils % (Manual) Seg Neutrophils # Seg Neutrophils # Man Lymphocytes # (Manual) Monocytes # (Manual) Eosinophils # (Manual) Nucleated RBC % Basophils # (Manual) PT INR APTT Heparin Anti-Xa Level ABG pH POC ABG pO2 ABG pO2 ABG HCO3 ABG O2 Saturation ABG Base Excess POC ABG pCO2 ABG Hemoglobin ABG Oxyhemoglobin ABG Sodium ABG Chloride ABG Glucose Oxyhemoglobin Sodium Potassium Chloride Carbon Dioxide BUN Creatinine Glucose POC Glucose 128 H Lactic Acid Calcium Phosphorus Magnesium AST ALT Lactate Dehydrogenase Total Bilirubin Direct Bilirubin CK-MB (CK-2) C-Reactive Protein NT-Pro-B Natriuret Pep Total Protein Albumin Arterial Blood Glucose Urine WBC (Auto) Urine Creatinine Digoxin Allied health notes reviewed: nursing
[2020-03-28] MEDS: DIGOXIN 0.125 MG TAB PO SCH (17:34)
--- NOTE | 2020-03-28 20:48 | Progress Note ---
Assessment and Plan Assessment and plan: -Intractable nausea; check for residual feeding IV Zofran as needed, supportive care --Acute on chronic hypoxemic respiratory failure; Patient has tracheostomy on vent On CPAP trial Continue nebulizers, , trach care Wean off ventilator as tolerated Pulmonary critical following --Acute exacerbation of COPD; Patient is currently on ventilatory support Continue nebulizers --Left lower lobe PE; Continue Eliquis, ventilatory support --Acute right lower extremity DVT; Patient is on Eliquis --Bilateral multifocal pneumonia/community-acquired Completed antibiotics, improved --Severe sepsis/bilateral pneumonia: Completed antibiotics COVID-19 test; 11/24/2019; negative 11/26/2019; negative 12/29/2019: Negative --Paroxysmal atrial fibrillation; Now rate controlled, Stable on amiodarone and Eliquis --Acute on chronic combined systolic and diastolic congestive heart failure Ischemic cardiomyopathy left ventricular ejection fraction 40 to 45% --H/o CAD [[facility] 12/2018 in-stent restenosis] Patient is stable on current cardiac medications --Hypertensive emergency; present on admission Reasonable blood pressures, continue current antihypertensives As needed medications --History of alcohol abuse/alcohol withdrawal; Was on CIWA protocol, now stable --Oropharyngeal dysphagia; status post PEG placement Continue PEG feeds per protocol --History of partial small bowel obstruction; resolved Surgery evaluated. --Obesity; BMI 34.7 Patient needs weight reduction when medically stable --Severe protein calorie malnutrition/hypoalbuminemia Nutrition supplements, dietitian following, PEG feeds --DVT prophylaxis;Eliquis --Full CODE STATUS 03/19/2020. Continue current vent per pulmonary recommendations. Pressure support ventilation trials as tolerated. Continue trach care, secretion control and airway management. Mobility protocols for pressure ulcer prophylaxis. 03/20/2020. Rate better controlled on digoxin and metoprolol per cardiology. Patient currently off amiodarone due to elevated liver enzymes. Continue anticoagulation with Eliquis. IV metoprolol as needed. No statins for now secondary to elevated liver enzymes. Patient remains on AC mode ventilation rate 12, tidal volume 450, FiO2 30% and PEEP of 6. Cont. PSV as figueroa. Continue trach care, secretion control and airway management. Mobility protocols for pressure ulcer prophylaxis. Patient is uninsured and his only d/c option is to return home with family. 03/21/2020. Patient still with elevated heart rate but better on digoxin and metoprolol per cardiology. Patient currently off amiodarone due to elevated li ian enzymes. Continue anticoagulation with Eliquis. IV metoprolol as needed. No statins for now secondary to elevated liver enzymes. Patient remains on AC mode mechanical ventilation with rate 12, tidal volume 450, FiO2 30% and PEEP of 6. Continue PSV trials as tolerated. Continue trach care, secretion control and airway management. Mobility protocols for pressure ulcer prophylaxis. Patient is uninsured and his only d/c option is to return home with family. 03/22/2020; patient remains on ventilatory support, continue to wean as tolerated, trach care Awaiting LTAC placement, however patient has multiple social issues, mobility protocols blood pressure ulcers DVT prophylaxis, will continue current management 03/23/2020; patient remains on ventilatory support, tracheostomy, on CPAP trial 03/25/2020; patient with tracheostomy remains on ventilatory support, complains of mild nausea 03/26/2020; clinically no change, tracheostomy on vent, unable to wean 03/27/2020; remains on ventilatory support, wean as tolerated, social issues, awaiting placement 03/28/2020; wean off vent as tolerated, awaiting LTAC placement, multiple social issues Plan of care reviewed with the patient and his nurse The high probability of a clinically significant, sudden or life threatening deterioration of the [Respiratory, cardiovascular & neurological] system(s) required my full and direct attention, intervention and personal management. The aggregate critical care time was [35] minutes without overlap. Time includes spent on [x] Data Review and interpretation [x] Patient assessment and monitoring of vital signs [x] Documentation [x] Medication orders and management Plan of care reviewed with the patient and his nurse History Interval history: I have seen and examined the patient in ICU this morning Patient's chart and medications reviewed Patient has tracheostomy on vent Weaning parameters No new events reported by the nursing Hospitalist Physical - Constitutional Vitals: Temp Pulse Resp BP Pulse Ox 98.2 F 107 H 8 L 95/66 99 03/28/20 20:00 03/28/20 19:55 03/28/20 19:55 03/28/20 19:55 03/28/20 19:55 General appearance: Present: no acute distress, well-nourished, other (Tracheostomy on vent) - EENT Eyes: Present: PERRL, EOM intact ENT: other (Tracheostomy on vent) - Neck Neck: Present: supple, normal ROM - Respiratory Respiratory effort: normal Respiratory: bilateral: diminished, rhonchi, negative: rales, wheezing - Cardiovascular Rhythm: regular Heart Sounds: Present: S1 & S2 - Extremities Extremities: no ischemia, No edema - Abdominal General gastrointestinal: soft, non-tender, non-distended, normal bowel sounds - Integumentary Integumentary: Present: clear, warm - Psychiatric Psychiatric: cooperative, other (On vent) - Neurologic Neurologic: other (On vent) HEART Score - HEART Score Troponin: Troponin T < 0.010 ng/mL (0.00-0.029) 01/19/20 01:35 Results - Labs CBC & Chem 7: 03/22/20 06:39 03/26/20 04:20 Labs: Laboratory Last Values WBC 6.0 K/mm3 (4.5-11.0) 03/22/20 06:39 RBC 3.97 M/mm3 (3.65-5.03) 03/22/20 06:39 Hgb 9.7 gm/dl (11.8-15.2) L 03/22/20 06:39 Hct 30.7 % (35.5-45.6) L 03/22/20 06:39 MCV 77 fl (84-94) L 03/22/20 06:39 MCH 25 pg (28-32) L 03/22/20 06:39 MCHC 32 % (32-34) 03/22/20 06:39 RDW 22.2 % (13.2-15.2) H 03/22/20 06:39 Plt Count 166 K/mm3 (140-440) 03/22/20 06:39 Lymph % (Auto) 32.8 % (13.4-35.0) 03/22/20 06:39 [place] % (Auto) 9.0 % (0.0-7.3) H 03/22/20 06:39 Eos % (Auto) 2.4 % (0.0-4.3) 03/22/20 06:39 Baso % (Auto) 0.3 % (0.0-1.8) 03/22/20 06:39 Lymph # (Auto) 2.0 K/mm3 (1.2-5.4) 03/22/20 06:39 [place] # (Auto) 0.5 K/mm3 (0.0-0.8) 03/22/20 06:39 Eos # (Auto) 0.1 K/mm3 (0.0-0.4) 03/22/20 06:39 Baso # (Auto) 0.0 K/mm3 (0.0-0.1) 03/22/20 06:39 Add Manual Diff Complete 02/15/20 06:59 Total Counted 100 02/15/20 06:59 Seg Neuts % (Manual) 58.0 % (40.0-70.0) 02/15/20 06:59 Band Neutrophils % 0 % 02/15/20 06:59 Seg Neutrophils % 55.5 % (40.0-70.0) 03/22/20 06:39 Lymphocytes % (Manual) 34.0 % (13.4-35.0) 02/15/20 06:59 Reactive Lymphs % (Man) 1.0 % 02/15/20 06:59 Monocytes % (Manual) 4.0 % (0.0-7.3) 02/15/20 06:59 Eosinophils % (Manual) 0 % (0.0-4.3) 02/15/20 06:59 Basophils % (Manual) 2.0 % (0.0-1.8) H 02/15/20 06:59 Metamyelocytes % 1.0 % 02/15/20 06:59 Myelocytes % 0 % 02/15/20 06:59 Promyelocytes % 0 % 02/15/20 06:59 Blast Cells % 0 % 02/15/20 06:59 Nucleated RBC % 1.0 % (0.0-0.9) H 02/15/20 06:59 Seg Neutrophils # Man 5.9 K/mm3 (1.8-7.7) 02/15/20 06:59 Seg Neutrophils # 3.4 K/mm3 (1.8-7.7) 03/22/20 06:39 Band Neutrophils # 0.0 K/mm3 02/15/20 06:59 Lymphocytes # (Manual) 3.5 K/mm3 (1.2-5.4) 02/15/20 06:59 Abs React Lymphs (Man) 0.1 K/mm3 02/15/20 06:59 Monocytes # (Manual) 0.4 K/mm3 (0.0-0.8) 02/15/20 06:59 Eosinophils # (Manual) 0.0 K/mm3 (0.0-0.4) 02/15/20 06:59 Basophils # (Manual) 0.2 K/mm3 (0.0-0.1) H 02/15/20 06:59 Metamyelocytes # 0.1 K/mm3 02/15/20 06:59 Myelocytes # 0.0 K/mm3 02/15/20 06:59 Promyelocytes # 0.0 K/mm3 02/15/20 06:59 Blast Cells # 0.0 K/mm3 02/15/20 06:59 WBC Morphology Not Reportable 02/15/20 06:59 Hypersegmented Neuts Not Reportable 02/15/20 06:59 Hyposegmented Neuts Not Reportable 02/15/20 06:59 Hypogranular Neuts Not Reportable 02/15/20 06:59 Smudge Cells Not Reportable 02/15/20 06:59 Toxic Granulation Not Reportable 02/15/20 06:59 Toxic Vacuolation Not Reportable 02/15/20 06:59 Dohle Bodies Not Reportable 02/15/20 06:59 Pelger-Huet Anomaly Not Reportable 02/15/20 06:59 Hector Rods Not Reportable 02/15/20 06:59 Platelet Estimate Consistent w auto 02/15/20 06:59 Clumped Platelets Not Reportable 02/15/20 06:59 Plt Clumps, EDTA Not Reportable 02/15/20 06:59 Large Platelets Not Reportable 02/15/20 06:59 Giant Platelets Not Reportable 02/15/20 06:59 Platelet Satelliting Not Reportable 02/15/20 06:59 Plt Morphology Comment Giant platelets 02/15/20 06:59 RBC Morphology Not Reportable 02/15/20 06:59 Dimorphic RBCs Not Reportable 02/15/20 06:59 Polychromasia Not Reportable 02/15/20 06:59 Hypochromasia 1+ 02/15/20 06:59 Poikilocytosis Few 02/15/20 06:59 Anisocytosis 1+ 02/15/20 06:59 Microcytosis Not Reportable 02/15/20 06:59 Macrocytosis Not Reportable 02/15/20 06:59 Spherocytes Not Reportable 02/15/20 06:59 Pappenheimer Bodies Not Reportable 02/15/20 06:59 Sickle Cells Not Reportable 02/15/20 06:59 Target Cells 1+ 02/15/20 06:59 Tear Drop Cells Few 02/15/20 06:59 Ovalocytes Not Reportable 02/15/20 06:59 Helmet Cells Not Reportable 02/15/20 06:59 [employer] Bodies Not Reportable 02/15/20 06:59 [place] Rings Not Reportable 02/15/20 06:59 Oc Cells Not Reportable 02/15/20 06:59 Bite Cells Not Reportable 02/15/20 06:59 Crenated Cell Not Reportable 02/15/20 06:59 Elliptocytes Few 02/15/20 06:59 Acanthocytes (Spur) Not Reportable 02/15/20 06:59 Rouleaux Not Reportable 02/15/20 06:59 Hemoglobin C Crystals Not Reportable 02/15/20 06:59 Schistocytes Not Reportable 02/15/20 06:59 Malaria parasites Not Reportable 02/15/20 06:59 Clifford Bodies Not Reportable 02/15/20 06:59 Hem Pathologist Commnt No 02/15/20 06:59 PT 27.0 Sec. (12.2-14.9) H 02/07/20 15:03 INR 2.46 (0.87-1.13) H 02/07/20 15:03 APTT 31.5 Sec. (24.2-36.6) 01/22/20 09:58 Heparin Anti-Xa Level 1.34 U.I./ml (0.3-0.7) H 01/22/20 04:45 ABG pH 7.454 (7.320-7.450) H 03/12/20 04:45 POC ABG pCO2 45.6 mmHg (32.0-48.0) 03/12/20 04:45 ABG pCO2 47.8 mm Hg 02/20/20 06:45 POC ABG pO2 69.2 mmHg (83-108) L 03/12/20 04:45 ABG pO2 88.7 mm Hg (80.0-90.0) 02/20/20 06:45 POC ABG HCO3 31.3 03/12/20 04:45 ABG HCO3 33.3 mmol/L (20.0-26.0) H 02/20/20 06:45 ABG O2 Saturation 97.2 % (95.0-99.0) 02/20/20 06:45 ABG O2 Content 13.3 (0.0-44) 02/20/20 06:45 POC ABG Base Excess 6.5 03/12/20 04:45 ABG Base Excess 8.4 mmol/L (-2.0-3.0) H 02/20/20 06:45 ABG Hemoglobin 11.2 (12.0-17.5) L 03/12/20 04:45 ABG Oxyhemoglobin 84 (94-98) L 12/22/19 03:22 ABG Carboxyhemoglobin 2.9 % (0.0-5.0) 02/20/20 06:45 ABG Methemoglobin 0.4 % (0.0-1.5) 02/20/20 06:45 ABG Sodium 134.7 mmol/L (136.0-145.0) L 03/12/20 04:45 ABG Potassium 3.9 mmol/L (3.40-4.50) 03/12/20 04:45 ABG Chloride 98.0 mmol/L (98-107) 03/12/20 04:45 ABG Glucose 151 mg/dL (65-95) H 03/12/20 04:45 Oxyhemoglobin 94.1 % (95.0-99.0) L 02/20/20 06:45 Carboxyhemoglobin 0.7 (0.5-1.5) 12/22/19 03:22 FiO2 30 03/12/20 04:45 Sodium 140 mmol/L (137-145) 03/26/20 04:20 Potassium 4.3 mmol/L (3.6-5.0) 03/26/20 04:20 Chloride 99.3 mmol/L (98-107) 03/26/20 04:20 Carbon Dioxide 26 mmol/L (22-30) D 03/26/20 04:20 Anion Gap 19 mmol/L 03/26/20 04:20 BUN 19 mg/dL (9-20) 03/26/20 04:20 Creatinine 0.6 mg/dL (0.8-1.3) L 03/26/20 04:20 Estimated GFR > 60 ml/min 03/26/20 04:20 BUN/Creatinine Ratio 32 % 03/26/20 04:20 Glucose 182 mg/dL (75-100) H 03/26/20 04:20 POC Glucose 126 mg/dL (70-105) H 03/28/20 17:54 Lactic Acid 1.60 mmol/L (0.7-2.0) 02/03/20 12:49 Ferritin 84.4 ng/mL (30.0-300.0) 11/24/19 04:53 Calcium 8.9 mg/dL (8.4-10.2) 03/26/20 04:20 Phosphorus 4.10 mg/dL (2.5-4.5) 01/31/20 19:24 Magnesium 2.40 mg/dL (1.7-2.3) H 02/10/20 07:40 Total Bilirubin 0.90 mg/dL (0.1-1.2) 03/18/20 15:34 Direct Bilirubin 0.9 mg/dL (0-0.2) H 02/08/20 19:00 Indirect Bilirubin 0.4 mg/dL 02/08/20 19:00 Total Creatine Kinase 141 units/L (55-170) 11/24/19 02:53 CK-MB (CK-2) 4.3 ng/mL (0.0-4.0) H 11/24/19 02:53 AST 23 units/L (5-40) 03/18/20 15:34 CK-MB (CK-2) Rel Index 3.0 (0-4) 11/24/19 02:53 ALT 22 units/L (7-56) 03/18/20 15:34 Alkaline Phosphatase 96 units/L (35-129) 03/18/20 15:34 C-Reactive Protein 8.50 mg/dL (0.00-1.30) H 12/01/19 12:16 Ammonia 35.0 umol/L (25-60) 02/03/20 12:49 Lactate Dehydrogenase 228 units/L (91-180) H 12/19/19 04:45 Troponin T < 0.010 ng/mL (0.00-0.029) 01/19/20 01:35 NT-Pro-B Natriuret Pep 3866 pg/mL (0-900) H 01/01/20 10:40 Total Protein 6.2 g/dL (6.3-8.2) L 03/18/20 15:34 Albumin 2.8 g/dL (3.9-5) L 03/18/20 15:34 Albumin/Globulin Ratio 0.8 % 03/18/20 15:34 Procalcitonin 0.44 ng/mL (<0.15) 02/03/20 12:49 Arterial Blood Glucose 151 mg/dL (65-95) H 03/12/20 04:45 Arterial Blood Ionized Calcium 4.8 mg/dL (4.6-5.3) 03/12/20 04:45 Urine Color Ceyc (Yellow) 02/26/20 07:50 Urine Turbidity Clear (Clear) 02/26/20 07:50 Urine pH 5.0 (5.0-7.0) 02/26/20 07:50 Ur Specific [place] 1.025 (1.003-1.030) 02/26/20 07:50 Urine Protein 30 mg/dl mg/dL (Negative) 02/26/20 07:50 Urine Glucose (UA) Neg mg/dL (Negative) 02/26/20 07:50 Urine Ketones Neg mg/dL (Negative) 02/26/20 07:50 Urine Blood Sm (Negative) 02/26/20 07:50 Urine Nitrite Neg (Negative) 02/26/20 07:50 Urine Bilirubin Neg (Negative) 02/26/20 07:50 Urine Urobilinogen 4.0 mg/dL (<2.0) 02/26/20 07:50 Ur Leukocyte Esterase Lg (Negative) 02/26/20 07:50 Urine WBC (Auto) > 182.0 /HPF (0.0-6.0) H 02/26/20 07:50 Urine RBC (Auto) 84.0 /HPF (0.0-6.0) 02/26/20 07:50 U Epithel Cells (Auto) 2.0 /HPF (0-13.0) 12/31/19 18:04 Urine Bacteria (Auto) 4+ /HPF (Negative) 02/26/20 07:50 Urine WBC Clumps 2+ /HPF 02/26/20 07:50 Urine Mucus 1+ /HPF 02/26/20 07:50 Urine Creatinine 57.4 mg/dL (0.1-20.0) H 01/31/20 Unknown Urine Sodium 59 mmol/L 01/31/20 Unknown Vancomycin Trough 14.2 ug/mL (5.0-20.0) 12/13/19 15:01 Digoxin 0.8 ng/mL (0.9-2.0) L 03/22/20 06:39 Coronavirus (PCR) Negative (Negative) 12/29/19 10:07 Hepatitis A IgM Ab Non-reactive (NonReactive) 02/05/20 06:37 Hep Bs Antigen Non-reactive (Negative) 02/05/20 06:37 Hep B Core IgM Ab Non-reactive (NonReactive) 02/05/20 06:37 Hepatitis C Antibody Non-reactive (NonReactive) 02/05/20 06:37 Blood Type O POSITIVE 01/21/20 13:00 Antibody Screen Negative 01/21/20 13:00 - Diagnostic Impressions Diagnostic Impressions: Echocardiogram 11/29/19 07:37 Transthoracic Echocardiogram Indication: CHF BP: 116/72 HR: 33 Conclusions *The study is technically limited due to poor acoustic windows. *Global left ventricular systolic function is normal. *The estimated ejection fraction is 50-55%. *Mild concentric left ventricular hypertrophy is observed. *There is trace of mitral regurgitation. *There is mild tricuspid regurgitation. Findings Procedure Info: The study quality is poor. The study is technically limited due to poor acoustic windows. The study is technically limited due to patient body habitus. Left Ventricle: The left ventricular chamber size is normal. Mild concentric left ventricular hypertrophy is observed. Global left ventricular systolic function is normal. The estimated ejection fraction is 50-55%. Left Atrium: The left atrial chamber size is normal. Right Ventricle: The right ventricular cavity size is normal. Right Atrium: The right atrial cavity size is normal. Aortic Valve: The aortic valve leaflets are moderately thickened. There is trace of aortic regurgitation. There is no evidence of aortic stenosis. Mitral Valve: The mitral valve leaflets are mildly thickened. There is trace of mitral regurgitation. There is no evidence of mitral stenosis. Tricuspid Valve: There is mild tricuspid regurgitation. No pulmonary hypertension is noted. Pulmonic Valve: There is trace pulmonic regurgitation. Pericardium: There is no pericardial effusion. Aorta: There is no dilatation of the aortic root. Venous: The inferior vena cava appears normal in size. Contrast: Definity was used to optimize study. Intravenous contrast was used to enhance endocardial border definition. Measurements Chambers 2D Name Value Normal Range Ao root diameter (2D) 3.4 cm (2 - 3.7) Aortic Valve Name Value Normal Range AV Vmax 0.98 m/sec - AV VTI 16.76 cm - AV peak gradient 3.83 mmHg - AV mean gradient 2.57 mmHg - LVOT diameter 3.11 cm - LVOT Vmax 0.68 m/sec - LVOT VTI 11.52 cm - LVOT peak gradient 1.84 mmHg - LVOT mean gradient 1.27 mmHg - SV LVOT 87.31 ml - MALOU (continuity Vmax) 5.24 cm2 - MALOU (continuity VTI) 5.21 cm2 - Tricuspid Valve Name Value Normal Range IVC diameter 2.24 cm (1.2 - 2.3) Hoffman/IV: Voiding Method Indwelling Catheter IV Catheter Type [Left INT / Saline Lock Antecubital] IV Catheter Type [Right INT / Saline Lock Forearm] IV Catheter Type [Right Hand] Peripheral IV IV Catheter Type [Right Upper INT / Saline Lock arm] IV Catheter Type [Left Upper Mid-line arm] IV Catheter Type [Left Forearm Peripheral IV ] IV Catheter Type [Left Hand] Peripheral IV IV Catheter Type [Left Wrist] INT / Saline Lock IV Catheter Type [Right Peripheral IV Antecubital] Active Medications - Current Medications Current Medications: Generic Name Dose Route Start Last Admin Trade Name Freq PRN Reason Stop Dose Admin Acetaminophen 650 mg 03/12/20 04:29 03/27/20 23:18 Acetaminophen 325 Mg/10.15 Ml Oral Liqd Unit Dose FEEDTUBE 650 mg Q6H PRN Administration Pain, Mild (1-3) Alprazolam 0.5 mg 03/26/20 09:26 03/27/20 09:44 Alprazolam 0.5 Mg Tab PO 0.5 mg TID PRN Administration Anxiety Lipase/Protease/Amylase 1 each 01/09/20 12:01 03/26/20 14:03 Lipase 10,500/Protease 25,000/Amylase 43,750 (Units) Dr Leonidas FEEDTUBE 1 each PRN PRN Administration For Clogged Feeding Tube Apixaban 5 mg 01/22/20 22:00 03/28/20 10:53 Apixaban 5 Mg Tab PO 5 mg Q12HR CAR Administration Protocol Atorvastatin Calcium 40 mg 01/20/20 22:00 03/27/20 23:18 Atorvastatin 40 Mg Tab PO 40 mg QHS CAR Administration Clopidogrel Bisulfate 75 mg 01/21/20 06:00 03/28/20 10:53 Clopidogrel 75 Mg Tab PO 75 mg QDAY CAR Administration Dextrose 50 ml 01/31/20 18:51 02/05/20 00:56 D50w (25gm) Syringe IV 50 ml Q30MIN PRN Administration Hypoglycemia Protocol Digoxin 0.125 mg 02/25/20 17:00 03/28/20 17:34 Digoxin 0.125 Mg Tab PO 0.125 mg DAILY@1700 CAR Administration Docusate Sodium 100 mg 02/22/20 10:00 03/28/20 10:52 Docusate Sodium 100 Mg/10 Ml Oral Liqd FEEDTUBE 100 mg BID CAR Administration Furosemide 20 mg 03/26/20 10:00 03/28/20 10:53 Furosemide 20 Mg Tab PO 20 mg QDAY CAR Administration Glycopyrrolate 2 mg 02/24/20 21:00 03/28/20 19:50 Glycopyrrolate 2 Mg Tab PO 2 mg TID CAR Administration Haloperidol Lactate 5 mg 02/10/20 14:20 03/19/20 23:26 Haloperidol Lactate 5 Mg/1 Ml Inj IV 5 mg Q6H PRN Administration Agitation Hydrophilic Ointment 1 applic 01/17/20 15:26 02/24/20 23:20 Lip Therapy Vaseline TP 1 applic DIRECT PRN Administration Dry Lips Insulin Human Regular 0 unit 02/01/20 18:00 03/28/20 19:10 Humulin R SUB-Q Not Given Q6H [facility] Protocol Lansoprazole 30 mg 02/05/20 16:00 03/28/20 10:53 Lansoprazole 30 Mg Solutab FEEDTUBE 30 mg QDAY CAR Administration Metoprolol Tartrate 5 mg 01/11/20 08:00 03/18/20 16:52 Metoprolol Tartrate 5 Mg/5 Ml Inj IV 5 mg Q6H PRN Administration SEE INSTRUCTIONS Metoprolol Tartrate 12.5 mg 02/28/20 12:00 03/28/20 10:52 Metoprolol Tartrate 25 Mg Tab FEEDTUBE Not Given BID CAR Midodrine 15 mg 02/04/20 16:00 03/28/20 17:35 Midodrine 5 Mg Tab PO 15 mg TID@0800,1200,1600 CAR Administration Morphine Sulfate 2 mg 01/06/20 15:41 03/25/20 08:29 Morphine 2 Mg/1 Ml Inj IV 2 mg Q4H PRN Administration Pain, Moderate (4-6) Multi-Ingred Cream/Lotion/Oil/Oint 1 applic 02/01/20 15:52 Artificial Tears Ophth Oint OU Q4HR PRN Dry Eye(s) Nitroglycerin 0.4 mg 01/19/20 21:09 01/20/20 03:03 Nitroglycerin 0.4 Mg Tab Subl SL 0.4 mg .Q5MIN PRN Administration Chest Pain Ondansetron HCl 4 mg 03/25/20 08:01 03/27/20 23:26 Ondansetron 4 Mg/2 Ml Inj IV 4 mg Q4H PRN Administration Nausea And Vomiting Polyethylene Glycol 17 gm 12/04/19 22:00 03/27/20 23:17 Miralax 3350 PO 17 gm QHS CAR Administration Quetiapine Fumarate 300 mg 01/13/20 22:00 03/28/20 10:52 Quetiapine 100 Mg Tab PO 300 mg BID CAR Administration Simple Syrup 15 ml 01/09/20 12:01 Simple Syrup 15 Ml FEEDTUBE PRN PRN Hypoglycemia Simple Syrup 30 ml 01/09/20 12:01 Simple Syrup 15 Ml FEEDTUBE PRN PRN Hypoglycemia Sodium Bicarbonate 325 mg 01/09/20 12:01 03/07/20 12:56 Sodium Bicarbonate 325 Mg Tab FEEDTUBE 325 mg PRN PRN Administration For Clogged Feeding Tube Sodium Chloride 10 ml 11/24/19 10:00 03/28/20 10:56 Sodium Chloride 0.9% 10 Ml Flush Syringe IV 10 ml BID CAR Administration Tamsulosin HCl 0.8 mg 12/20/19 22:00 03/27/20 23:18 Tamsulosin 0.4 Mg Cap PO 0.8 mg QHS CAR Administration Nutrition/Malnutrition Assess - Dietary Evaluation Nutrition/Malnutrition Findings: Nutrition Notes Start: 11/24/19 12:22 Freq: Status: Active Protocol: Document 03/28/20 10:09 BORA (Rec: 03/28/20 10:20 BORA [email or web address]) Nutrition Notes Initial or Follow up Reassessment Current Diagnosis COPD,Sepsis,Heart Failure, Respiratory Failure Other Pertinent Diagnosis Bilat pneu, dysphagia Current Diet TF - Osmolite 1.5 at 65ml/hr Labs/Tests Reviewed Pertinent Medications Lasix Height 6 ft 2 in Weight 130.5 kg [place] Body Weight (kg) 86.36 BMI 36.9 Weight Status Obese Subjective/Other Information Pt with intractable nausea at times; TF continues to infuse at 55ml/hr, as pt unable to tolerate higher rate. Pt remains on vent support. Awaiting placement. Percent of energy/protein needs met: 76% energy (using unadjusted needs) 77% pro Burn Absent Trauma Absent Minimum of two criteria Yes #2 Nutrition Diagnosis Malnutrition Diagnosis Progress(for reassessment Continues documentation) #1 Nutrition Diagnosis Inadequate oral intake Diagnosis Progress(for reassessment Continues documentation) Is patient on ventilator? Yes Is Patient Ambulatory and/or Out of Bed No REE-([place]-confined to bed) 2608.188 Kcal/Kg value to use for calculation 16 Approximate Energy Requirements Using 2088 kcal/Kg Calculation Used for Recommendations Kcal/kg Additional Notes Pro needs 1-1.2g/kg adjBW: 108 -130g/day Fluid needs per MD. Nutrition Intervention Nutrition Support: Change TF rate to Osmolite 1.5 at 55ml/hr with 150ml water flush q4h. Kcal 1,980 Protein (gm) 83 Fluid (mL) 1,006 Goal #1 TF tolerance Goal #2 TF to meet at least 65-70% energy and 75% pro needs Follow-Up By: 04/04/20 Additional Comments F/U: TF tolerance, wt, vent status
[2020-03-28] MEDS: TAMSULOSIN 0.4 MG CAP PO SCH (21:50)
[2020-03-28] MEDS: POLYETHYLENE GLYCOL 3350 17 GM POWDER PO SCH (21:51)
[2020-03-29] MEDS: INSULIN REGULAR, HUMAN 100 UNIT/ML 3ML VIAL SUB-Q SCH ×5 (02:34→23:38)
[2020-03-29] MEDS: ACETAMINOPHEN 325 MG/10.15 ML ORAL LIQD UNIT DOSE FEEDTUBE PRN ×2 (02:35→22:21)
[2020-03-29] MEDS: MIDODRINE 5 MG TAB PO SCH ×3 (08:37→18:06)
[2020-03-29] MEDS: ALPRAZolam 0.5 MG TAB PO PRN ×2 (08:37→18:06)
[2020-03-29] MEDS: GLYCOPYRROLATE 2 MG TAB PO SCH ×3 (08:46→22:28)
--- NOTE | 2020-03-29 08:46 | XRay Report ---
CHEST 1 VIEW INDICATION: Respiratory failure. COMPARISON: March 10, 2020 FINDINGS: SUPPORT DEVICES: Tracheostomy good position. HEART / MEDIASTINUM: No significant abnormality. LUNGS / PLEURA: Again noted bilateral pulmonary process with bilateral pleural effusions. No pneumoth orax. ADDITIONAL FINDINGS: IMPRESSION: 1. No interval changes compared to previous exam Signer Name: Jose Leblanc MD Signed: 03/29/2020 8:41 AM Workstation Name: [id number]
[2020-03-29] MEDS: APIXABAN 5 MG TAB PO SCH ×2 (09:46→22:21)
[2020-03-29] MEDS: FUROSEMIDE 20 MG TAB PO SCH (09:46)
[2020-03-29] MEDS: LANSOPRAZOLE 30 MG SOLUTAB FEEDTUBE SCH (09:46)
[2020-03-29] MEDS: DOCUSATE SODIUM 100 MG/10 ML ORAL LIQD FEEDTUBE SCH ×2 (09:46→22:20)
[2020-03-29] MEDS: METOPROLOL TARTRATE 25 MG TAB FEEDTUBE SCH ×2 (09:47→22:20)
[2020-03-29] MEDS: CLOPIDOGREL 75 MG TAB PO SCH (09:47)
[2020-03-29] MEDS: QUEtiapine 100 MG TAB PO SCH ×2 (10:05→22:21)
[2020-03-29] MEDS: MORPHINE 2 MG/1 ML INJ IV PRN (10:11)
--- NOTE | 2020-03-29 11:05 | Progress Note ---
Assessment and Plan Patient sleeping. Patient Off the mechanical ventilation. Patient is on Trach HME, FIO2 40% and O2 saturation running 96%. Patients Patient tolerating Trach HME. Repeat chest xray 03/29/20 reported Again noted bilateral pulmonary process w ith bilateral pleural effusions. No pneumothorax. Patient afebrile. No leukocytosis. Chest xray done 03/10/20reported Mild CHF. Patient is on Apixaban and prevacid. - Patient Problems (1) Acute respiratory failure Current Visit: Yes Status: Acute Plan to address problem: Patient is on Trach HME, FIO2 40%. Albuterol/atrovent aerosol treatments. Continue apixaban Continue prevacid. Continue spontaneous breathing trials. (2) COPD exacerbation Current Visit: No Status: Acute Plan to address problem: Patient is on Trach HME, FIO2 40%. Albuterol/atrovent aerosol treatments. Continue apixaban Continue prevacid. Continue spontaneous breathing trials. (3) Bilateral pneumonia Current Visit: Yes Status: Acute Plan to address problem: Chest xray 03/10/20 reported CHF Patient afebrile. No leukocytosis. Repeating chest xray. (4) CHF exacerbation Current Visit: Yes Status: Acute Plan to address problem: Management as per cardiology. (5) Cardiomyopathy Current Visit: Yes Status: Acute Plan to address problem: Management as per cardiology. (6) Pancreatic lesion Current Visit: Yes Status: Acute Plan to address problem: Management as per primary care. (7) Paroxysmal atrial fibrillation Current Visit: Yes Status: Acute Plan to address problem: Patient is on apixaban. Management as per cardiology. (8) CVA (cerebral vascular accident) Current Visit: No Status: Acute Qualifiers: Precerebral and cerebral artery: middle cerebral artery Laterality of affected vessel: right Plan to address problem: Management as per primary care. (9) Cocaine dependence Current Visit: No Status: Acute Plan to address problem: Management as per primary care. (10) HTN (hypertension) Current Visit: No Status: Acute Qualifiers: Hypertension type: essential hypertension Qualified Code(s): I10 - Essential (primary) hypertension Plan to address problem: Management as per primary care. (11) Nicotine dependence Current Visit: No Status: Acute Qualifiers: Nicotine product type: cigarettes Substance use status: in withdrawal Qualified Code(s): F17.213 - Nicotine dependence, cigarettes, with withdrawal Plan to address problem: Counseled to stop smoking. (12) Obesity hypoventilation syndrome Current Visit: No Status: Acute Plan to address problem: Patient S/P tracheostomy and on mechanical ventilation. Subjective Date of service: 03/29/20 Principal diagnosis: Ac hypoxemic resp failure; Pneumonia; PUI COVID-19; CHF; COPD; HTN Interval history: Patient sleeping. Patient Off the mechanical ventilation. Patient is on Trach HME, FIO2 40% and O2 saturation running 96%. Patients Patient tolerating Trach HME. Repeat chest xray 03/29/20 reported Again noted bilateral pulmonary process with bilateral pleural effusions. No pneumothorax. Patient afebrile. No leukocytosis. Chest xray done 03/10/20reported Mild CHF. Patient is on Apixaban and prevacid. Objective Vital Signs - 12hr 03/28/20 03/29/20 03/29/20 23:31 00:00 00:20 Temperature 97.6 F Pulse Rate 128 H 118 H 128 H Pulse Rate [ 108 H From Monitor] Respiratory 18 22 6 L Rate Blood Pressure 88/61 93/64 79/60 O2 Sat by Pulse 100 98 99 Oximetry O2 Sat by Pulse Oximetry [ Assessment] 03/29/20 03/29/20 03/29/20 00:30 01:00 01:30 Temperature Pulse Rate 98 H 123 H 105 H Pulse Rate [ From Monitor] Respiratory 20 23 21 Rate Blood Pressure 89/64 94/73 91/67 O2 Sat by Pulse 100 99 100 Oximetry O2 Sat by Pulse Oximetry [ Assessment] 03/29/20 03/29/20 03/29/20 02:00 02:31 02:35 Temperature Pulse Rate 119 H 123 H Pulse Rate [ From Monitor] Respiratory 20 25 H 21 Rate Blood Pressure 91/67 100/62 O2 Sat by Pulse 100 98 Oximetry O2 Sat by Pulse Oximetry [ Assessment] 03/29/20 03/29/20 03/29/20 03:00 03:29 03:30 Temperature Pulse Rate 118 H 114 H 114 H Pulse Rate [ From Monitor] Respiratory 22 12 22 Rate Blood Pressure 96/68 96/68 84/64 O2 Sat by Pulse 100 99 99 Oximetry O2 Sat by Pulse Oximetry [ Assessment] 03/29/20 03/29/20 03/29/20 04:00 04:31 05:00 Temperature 97.4 F L Pulse Rate 114 H 118 H 113 H Pulse Rate [ 114 H From Monitor] Respiratory 21 18 17 Rate Blood Pressure 84/64 88/60 98/71 O2 Sat by Pulse 97 98 99 Oximetry O2 Sat by Pulse Oximetry [ Assessment] 03/29/20 03/29/20 03/29/20 05:30 06:00 06:30 Temperature Pulse Rate 116 H 129 H 128 H Pulse Rate [ From Monitor] Respiratory 20 14 17 Rate Blood Pressure 102/72 104/68 95/76 O2 Sat by Pulse 100 99 99 Oximetry O2 Sat by Pulse Oximetry [ Assessment] 03/29/20 03/29/20 03/29/20 07:00 07:30 08:00 Temperature 97.7 F Pulse Rate 117 H 121 H Pulse Rate [ From Monitor] Respiratory 19 20 Rate Blood Pressure 102/74 97/68 O2 Sat by Pulse 99 99 Oximetry O2 Sat by Pulse Oximetry [ Assessment] 03/29/20 03/29/20 03/29/20 08:51 08:54 09:47 Temperature Pulse Rate 126 H Pulse Rate [ From Monitor] Respiratory Rate Blood Pressure O2 Sat by Pulse 97 Oximetry O2 Sat by Pulse 97 Oximetry [ Assessment] Constitutional: no acute distress, asleep, other (elderly and obese male, normocephalic with mildly increased respiratory effort at rest) Eyes: non-icteric ENT: oropharynx moist, other (+ midline tracheostomy) Neck: supple, no JVD Effort: mildly labored Ascultation: Bilateral: diminished breath sounds, rhonchi (scant), other (tracheal secretions ) Percussion: Bilateral: not dull Cardiovascular: irregular rhythm Gastrointestinal: normoactive bowel sounds, soft, non-tender, non-distended (protuberant), other (protuberant; PEG in place) Integumentary: normal Extremities: no cyanosis, pulses normal, no ischemia or petechiae, edema (2+) Neurologic: non-focal exam (grossly; moves extremities), pupils equal and round, unable to assess Psychiatric: mood appropriate, affect normal CBC and BMP: 03/22/20 06:39 03/26/20 04:20 ABG, PT/INR, D-dimer: ABG ABG pH 7.454 (7.320-7.450) H 03/12/20 04:45 POC ABG pCO2 45.6 mmHg (32.0-48.0) 03/12/20 04:45 ABG pCO2 47.8 mm Hg 02/20/20 06:45 POC ABG pO2 69.2 mmHg (83-108) L 03/12/20 04:45 ABG pO2 88.7 mm Hg (80.0-90.0) 02/20/20 06:45 POC ABG HCO3 31.3 03/12/20 04:45 ABG O2 Saturation 97.2 % (95.0-99.0) 02/20/20 06:45 PT/INR, D-dimer PT 27.0 Sec. (12.2-14.9) H 02/07/20 15:03 INR 2.46 (0.87-1.13) H 02/07/20 15:03 Abnormal lab findings: Abnormal Labs 11/24/19 11/24/19 11/24/19 02:53 02:53 03:45 WBC 14.3 H RBC Hgb Hct MCHC RDW 17.2 H MCV MCH Lymph % (Auto) [place] % (Auto) [place] # Eos # Lymph # (Auto) [place] # (Auto) Eos # (Auto) Seg Neutrophils % Seg Neuts % (Manual) Baso # (Auto) Lymphocytes % (Manual) Monocytes % (Manual) Eosinophils % (Manual) Basophils % (Manual) Seg Neutrophils # Seg Neutrophils # Man 8.3 H Lymphocytes # (Manual) Monocytes # (Manual) 0.9 H Eosinophils # (Manual) Nucleated RBC % Basophils # (Manual) PT INR APTT Heparin Anti-Xa Level ABG pH 7.313 L POC ABG pO2 ABG pO2 102.8 H ABG HCO3 ABG O2 Saturation ABG Base Excess -2.9 L POC ABG pCO2 ABG Hemoglobin ABG Oxyhemoglobin ABG Sodium ABG Chloride ABG Glucose Oxyhemoglobin 93.9 L Sodium Potassium Chloride Carbon Dioxide BUN Creatinine Glucose 195 H POC Glucose Lactic Acid Calcium Phosphorus Magnesium AST ALT Lactate Dehydrogenase Total Bilirubin Direct Bilirubin CK-MB (CK-2) 4.3 H C-Reactive Protein NT-Pro-B Natriuret Pep 1181 H Total Protein Albumin Arterial Blood Glucose Urine WBC (Auto) Urine Creatinine Digoxin 11/24/19 11/24/19 11/24/19 04:53 04:53 10:37 WBC RBC Hgb Hct MCHC RDW MCV MCH Lymph % (Auto) [place] % (Auto) [place] # Eos # Lymph # (Auto) [place] # (Auto) Eos # (Auto) Seg Neutrophils % Seg Neuts % (Manual) Baso # (Auto) Lymphocytes % (Manual) Monocytes % (Manual) Eosinophils % (Manual) Basophils % (Manual) Seg Neutrophils # Seg Neutrophils # Man Lymphocytes # (Manual) Monocytes # (Manual) Eosinophils # (Manual) Nucleated RBC % Basophils # (Manual) PT INR APTT Heparin Anti-Xa Level ABG pH POC ABG pO2 ABG pO2 ABG HCO3 ABG O2 Saturation ABG Base Excess POC ABG pCO2 ABG Hemoglobin ABG Oxyhemoglobin ABG Sodium ABG Chloride ABG Glucose Oxyhemoglobin Sodium Potassium Chloride Carbon Dioxide BUN Creatinine Glucose 162 H POC Glucose Lactic Acid 2.40 H* 2.50 H* Calcium Phosphorus Magnesium AST ALT Lactate Dehydrogenase 240 H Total Bilirubin Direct Bilirubin CK-MB (CK-2) C-Reactive Protein NT-Pro-B Natriuret Pep Total Protein Albumin Arterial Blood Glucose Urine WBC (Auto) Urine Creatinine Digoxin 11/24/19 11/24/19 11/24/19 12:21 14:50 19:54 WBC RBC Hgb Hct MCHC RDW MCV MCH Lymph % (Auto) [place] % (Auto) [place] # Eos # Lymph # (Auto) [place] # (Auto) Eos # (Auto) Seg Neutrophils % Seg Neuts % (Manual) Baso # (Auto) Lymphocytes % (Manual) Monocytes % (Manual) Eosinophils % (Manual) Basophils % (Manual) Seg Neutrophils # Seg Neutrophils # Man Lymphocytes # (Manual) Monocytes # (Manual) Eosinophils # (Manual) Nucleated RBC % Basophils # (Manual) PT INR APTT Heparin Anti-Xa Level ABG pH POC ABG pO2 ABG pO2 ABG HCO3 ABG O2 Saturation ABG Base Excess POC ABG pCO2 ABG Hemoglobin ABG Oxyhemoglobin ABG Sodium ABG Chloride ABG Glucose Oxyhemoglobin Sodium Potassium Chloride Carbon Dioxide BUN Creatinine Glucose POC Glucose 145 H 143 H 124 H Lactic Acid Calcium Phosphorus Magnesium AST ALT Lactate Dehydrogenase Total Bilirubin Direct Bilirubin CK-MB (CK-2) C-Reactive Protein NT-Pro-B Natriuret Pep Total Protein Albumin Arterial Blood Glucose Urine WBC (Auto) Urine Creatinine Digoxin 11/25/19 11/25/19 11/25/19 00:18 03:18 05:11 WBC 13.7 H RBC Hgb Hct MCHC RDW 17.1 H MCV MCH Lymph % (Auto) 10.8 L [place] % (Auto) 8.7 H [place] # 1.2 H Eos # Lymph # (Auto) [place] # (Auto) Eos # (Auto) Seg Neutrophils % 80.2 H Seg Neuts % (Manual) Baso # (Auto) Lymphocytes % (Manual) Monocytes % (Manual) Eosinophils % (Manual) Basophils % (Manual) Seg Neutrophils # 11.0 H Seg Neutrophils # Man Lymphocytes # (Manual) Monocytes # (Manual) Eosinophils # (Manual) Nucleated RBC % Basophils # (Manual) PT INR APTT Heparin Anti-Xa Level ABG pH 7.333 L POC ABG pO2 ABG pO2 61.2 L ABG HCO3 ABG O2 Saturation 90.2 L ABG Base Excess POC ABG pCO2 ABG Hemoglobin 13.7 L ABG Oxyhemoglobin ABG Sodium ABG Chloride ABG Glucose Oxyhemoglobin 88.2 L Sodium Potassium Chloride Carbon Dioxide BUN Creatinine Glucose POC Glucose 109 H Lactic Acid Calcium Phosphorus Magnesium AST ALT Lactate Dehydrogenase Total Bilirubin Direct Bilirubin CK-MB (CK-2) C-Reactive Protein NT-Pro-B Natriuret Pep Total Protein Albumin Arterial Blood Glucose Urine WBC (Auto) Urine Creatinine Digoxin 11/25/19 11/25/19 11/26/19 05:11 11:40 03:12 WBC RBC Hgb Hct MCHC RDW MCV MCH Lymph % (Auto) [place] % (Auto) [place] # Eos # Lymph # (Auto) [place] # (Auto) Eos # (Auto) Seg Neutrophils % Seg Neuts % (Manual) Baso # (Auto) Lymphocytes % (Manual) Monocytes % (Manual) Eosinophils % (Manual) Basophils % (Manual) Seg Neutrophils # Seg Neutrophils # Man Lymphocytes # (Manual) Monocytes # (Manual) Eosinophils # (Manual) Nucleated RBC % Basophils # (Manual) PT INR APTT Heparin Anti-Xa Level ABG pH POC ABG pO2 ABG pO2 155.1 H ABG HCO3 27.8 H ABG O2 Saturation ABG Base Excess POC ABG pCO2 ABG Hemoglobin 12.2 L ABG Oxyhemoglobin ABG Sodium ABG Chloride ABG Glucose Oxyhemoglobin Sodium Potassium Chloride Carbon Dioxide BUN 23 H Creatinine Glucose 110 H POC Glucose 108 H Lactic Acid Calcium Phosphorus Magnesium AST ALT Lactate Dehydrogenase Total Bilirubin Direct Bilirubin CK-MB (CK-2) C-Reactive Protein NT-Pro-B Natriuret Pep Total Protein Albumin Arterial Blood Glucose Urine WBC (Auto) Urine Creatinine Digoxin 11/26/19 11/26/19 11/26/19 06:17 10:43 10:43 WBC 11.4 H RBC Hgb Hct MCHC RDW 17.1 H MCV MCH Lymph % (Auto) [place] % (Auto) [place] # Eos # Lymph # (Auto) [place] # (Auto) Eos # (Auto) Seg Neutrophils % Seg Neuts % (Manual) Baso # (Auto) Lymphocytes % (Manual) Monocytes % (Manual) Eosinophils % (Manual) Basophils % (Manual) Seg Neutrophils # Seg Neutrophils # Man Lymphocytes # (Manual) Monocytes # (Manual) Eosinophils # (Manual) Nucleated RBC % Basophils # (Manual) PT INR APTT Heparin Anti-Xa Level ABG pH POC ABG pO2 ABG pO2 ABG HCO3 ABG O2 Saturation ABG Base Excess POC ABG pCO2 ABG Hemoglobin ABG Oxyhemoglobin ABG Sodium ABG Chloride ABG Glucose Oxyhemoglobin Sodium Potassium Chloride Carbon Dioxide BUN 29 H Creatinine Glucose POC Glucose 107 H Lactic Acid Calcium Phosphorus Magnesium AST ALT Lactate Dehydrogenase Total Bilirubin Direct Bilirubin CK-MB (CK-2) C-Reactive Protein NT-Pro-B Natriuret Pep Total Protein Albumin Arterial Blood Glucose Urine WBC (Auto) Urine Creatinine Digoxin 11/26/19 11/27/19 11/27/19 17:11 01:53 04:11 WBC RBC Hgb Hct MCHC RDW MCV MCH Lymph % (Auto) [place] % (Auto) [place] # Eos # Lymph # (Auto) [place] # (Auto) Eos # (Auto) Seg Neutrophils % Seg Neuts % (Manual) Baso # (Auto) Lymphocytes % (Manual) Monocytes % (Manual) Eosinophils % (Manual) Basophils % (Manual) Seg Neutrophils # Seg Neutrophils # Man Lymphocytes # (Manual) Monocytes # (Manual) Eosinophils # (Manual) Nucleated RBC % Basophils # (Manual) PT INR APTT Heparin Anti-Xa Level ABG pH POC ABG pO2 ABG pO2 ABG HCO3 29.2 H ABG O2 Saturation ABG Base Excess 3.4 H POC ABG pCO2 ABG Hemoglobin 13.3 L ABG Oxyhemoglobin ABG Sodium ABG Chloride ABG Glucose Oxyhemoglobin 94.5 L Sodium Potassium Chloride Carbon Dioxide BUN Creatinine Glucose POC Glucose 113 H 108 H Lactic Acid Calcium Phosphorus Magnesium AST ALT Lactate Dehydrogenase Total Bilirubin Direct Bilirubin CK-MB (CK-2) C-Reactive Protein NT-Pro-B Natriuret Pep Total Protein Albumin Arterial Blood Glucose Urine WBC (Auto) Urine Creatinine Digoxin 11/27/19 11/28/19 11/28/19 05:27 05:00 05:25 WBC RBC Hgb Hct MCHC RDW MCV MCH Lymph % (Auto) [place] % (Auto) [place] # Eos # Lymph # (Auto) [place] # (Auto) Eos # (Auto) Seg Neutrophils % Seg Neuts % (Manual) Baso # (Auto) Lymphocytes % (Manual) Monocytes % (Manual) Eosinophils % (Manual) Basophils % (Manual) Seg Neutrophils # Seg Neutrophils # Man Lymphocytes # (Manual) Monocytes # (Manual) Eosinophils # (Manual) Nucleated RBC % Basophils # (Manual) PT INR APTT Heparin Anti-Xa Level ABG pH POC ABG pO2 68.1 L ABG pO2 ABG HCO3 ABG O2 Saturation ABG Base Excess POC ABG pCO2 ABG Hemoglobin ABG Oxyhemoglobin 91.2 L ABG Sodium ABG Chloride ABG Glucose Oxyhemoglobin Sodium Potassium Chloride Carbon Dioxide BUN Creatinine Glucose POC Glucose 111 H 110 H Lactic Acid Calcium Phosphorus Magnesium AST ALT Lactate Dehydrogenase Total Bilirubin Direct Bilirubin CK-MB (CK-2) C-Reactive Protein NT-Pro-B Natriuret Pep Total Protein Albumin Arterial Blood Glucose Urine WBC (Auto) Urine Creatinine Digoxin 11/28/19 11/28/19 11/28/19 12:08 13:47 13:47 WBC 11.3 H RBC Hgb Hct MCHC RDW 16.1 H MCV MCH Lymph % (Auto) [place] % (Auto) 9.9 H [place] # 1.1 H Eos # Lymph # (Auto) [place] # (Auto) Eos # (Auto) Seg Neutrophils % 71.4 H Seg Neuts % (Manual) Baso # (Auto) Lymphocytes % (Manual) Monocytes % (Manual) Eosinophils % (Manual) Basophils % (Manual) Seg Neutrophils # 8.1 H Seg Neutrophils # Man Lymphocytes # (Manual) Monocytes # (Manual) Eosinophils # (Manual) Nucleated RBC % Basophils # (Manual) PT INR APTT Heparin Anti-Xa Level ABG pH POC ABG pO2 ABG pO2 ABG HCO3 ABG O2 Saturation ABG Base Excess POC ABG pCO2 ABG Hemoglobin ABG Oxyhemoglobin ABG Sodium ABG Chloride ABG Glucose Oxyhemoglobin Sodium Potassium Chloride Carbon Dioxide BUN 23 H Creatinine Glucose 123 H POC Glucose 112 H Lactic Acid Calcium Phosphorus Magnesium AST ALT Lactate Dehydrogenase Total Bilirubin Direct Bilirubin CK-MB (CK-2) C-Reactive Protein NT-Pro-B Natriuret Pep Total Protein Albumin 3.7 L Arterial Blood Glucose Urine WBC (Auto) Urine Creatinine Digoxin 11/28/19 11/29/19 11/29/19 17:26 03:55 17:04 WBC RBC Hgb Hct MCHC RDW MCV MCH Lymph % (Auto) [place] % (Auto) [place] # Eos # Lymph # (Auto) [place] # (Auto) Eos # (Auto) Seg Neutrophils % Seg Neuts % (Manual) Baso # (Auto) Lymphocytes % (Manual) Monocytes % (Manual) Eosinophils % (Manual) Basophils % (Manual) Seg Neutrophils # Seg Neutrophils # Man Lymphocytes # (Manual) Monocytes # (Manual) Eosinophils # (Manual) Nucleated RBC % Basophils # (Manual) PT INR APTT Heparin Anti-Xa Level ABG pH POC ABG pO2 ABG pO2 65.7 L ABG HCO3 28.3 H ABG O2 Saturation 93.9 L ABG Base Excess 3.6 H POC ABG pCO2 ABG Hemoglobin 13.3 L ABG Oxyhemoglobin ABG Sodium ABG Chloride ABG Glucose Oxyhemoglobin 91.5 L Sodium Potassium Chloride Carbon Dioxide BUN Creatinine Glucose POC Glucose 123 H 119 H Lactic Acid Calcium Phosphorus Magnesium AST ALT Lactate Dehydrogenase Total Bilirubin Direct Bilirubin CK-MB (CK-2) C-Reactive Protein NT-Pro-B Natriuret Pep Total Protein Albumin Arterial Blood Glucose Urine WBC (Auto) Urine Creatinine Digoxin 11/30/19 11/30/19 11/30/19 04:17 04:17 04:56 WBC 13.4 H RBC Hgb Hct MCHC RDW 15.6 H MCV MCH Lymph % (Auto) [place] % (Auto) [place] # Eos # Lymph # (Auto) [place] # (Auto) Eos # (Auto) Seg Neutrophils % Seg Neuts % (Manual) Baso # (Auto) Lymphocytes % (Manual) Monocytes % (Manual) Eosinophils % (Manual) Basophils % (Manual) Seg Neutrophils # Seg Neutrophils # Man Lymphocytes # (Manual) Monocytes # (Manual) Eosinophils # (Manual) Nucleated RBC % Basophils # (Manual) PT INR APTT Heparin Anti-Xa Level ABG pH POC ABG pO2 ABG pO2 56.3 L ABG HCO3 29.3 H ABG O2 Saturation 91.5 L ABG Base Excess 4.7 H POC ABG pCO2 ABG Hemoglobin 12.1 L ABG Oxyhemoglobin ABG Sodium ABG Chloride ABG Glucose Oxyhemoglobin 89.2 L Sodium 147 H Potassium Chloride Carbon Dioxide BUN 30 H Creatinine Glucose 124 H POC Glucose Lactic Acid Calcium Phosphorus Magnesium AST ALT Lactate Dehydrogenase Total Bilirubin Direct Bilirubin CK-MB (CK-2) C-Reactive Protein NT-Pro-B Natriuret Pep Total Protein Albumin 3.8 L Arterial Blood Glucose Urine WBC (Auto) Urine Creatinine Digoxin 11/30/19 11/30/19 11/30/19 05:51 11:54 18:17 WBC RBC Hgb Hct MCHC RDW MCV MCH Lymph % (Auto) [place] % (Auto) [place] # Eos # Lymph # (Auto) [place] # (Auto) Eos # (Auto) Seg Neutrophils % Seg Neuts % (Manual) Baso # (Auto) Lymphocytes % (Manual) Monocytes % (Manual) Eosinophils % (Manual) Basophils % (Manual) Seg Neutrophils # Seg Neutrophils # Man Lymphocytes # (Manual) Monocytes # (Manual) Eosinophils # (Manual) Nucleated RBC % Basophils # (Manual) PT INR APTT Heparin Anti-Xa Level ABG pH POC ABG pO2 ABG pO2 ABG HCO3 ABG O2 Saturation ABG Base Excess POC ABG pCO2 ABG Hemoglobin ABG Oxyhemoglobin ABG Sodium ABG Chloride ABG Glucose Oxyhemoglobin Sodium Potassium Chloride Carbon Dioxide BUN Creatinine Glucose POC Glucose 127 H 115 H 143 H Lactic Acid Calcium Phosphorus Magnesium AST ALT Lactate Dehydrogenase Total Bilirubin Direct Bilirubin CK-MB (CK-2) C-Reactive Protein NT-Pro-B Natriuret Pep Total Protein Albumin Arterial Blood Glucose Urine WBC (Auto) Urine Creatinine Digoxin 12/01/19 12/01/19 12/01/19 01:18 05:22 12:16 WBC RBC Hgb Hct MCHC RDW MCV MCH Lymph % (Auto) [place] % (Auto) [place] # Eos # Lymph # (Auto) [place] # (Auto) Eos # (Auto) Seg Neutrophils % Seg Neuts % (Manual) Baso # (Auto) Lymphocytes % (Manual) Monocytes % (Manual) Eosinophils % (Manual) Basophils % (Manual) Seg Neutrophils # Seg Neutrophils # Man Lymphocytes # (Manual) Monocytes # (Manual) Eosinophils # (Manual) Nucleated RBC % Basophils # (Manual) PT INR APTT Heparin Anti-Xa Level ABG pH POC ABG pO2 ABG pO2 ABG HCO3 ABG O2 Saturation ABG Base Excess POC ABG pCO2 ABG Hemoglobin ABG Oxyhemoglobin ABG Sodium ABG Chloride ABG Glucose Oxyhemoglobin Sodium Potassium 3.5 L Chloride 107.8 H Carbon Dioxide BUN 37 H Creatinine Glucose 157 H POC Glucose 118 H 148 H Lactic Acid Calcium 8.2 L D Phosphorus Magnesium AST 48 H ALT 60 H Lactate Dehydrogenase 194 H Total Bilirubin Direct Bilirubin CK-MB (CK-2) C-Reactive Protein 8.50 H NT-Pro-B Natriuret Pep Total Protein 5.5 L Albumin 2.8 L Arterial Blood Glucose Urine WBC (Auto) Urine Creatinine Digoxin 12/01/19 12/02/19 12/02/19 18:04 00:05 05:16 WBC 11.4 H RBC Hgb Hct MCHC RDW 15.9 H MCV MCH Lymph % (Auto) [place] % (Auto) 9.9 H [place] # 1.1 H Eos # Lymph # (Auto) [place] # (Auto) Eos # (Auto) Seg Neutrophils % 70.3 H Seg Neuts % (Manual) Baso # (Auto) Lymphocytes % (Manual) Monocytes % (Manual) Eosinophils % (Manual) Basophils % (Manual) Seg Neutrophils # 8.0 H Seg Neutrophils # Man Lymphocytes # (Manual) Monocytes # (Manual) Eosinophils # (Manual) Nucleated RBC % Basophils # (Manual) PT INR APTT Heparin Anti-Xa Level ABG pH POC ABG pO2 ABG pO2 ABG HCO3 ABG O2 Saturation ABG Base Excess POC ABG pCO2 ABG Hemoglobin ABG Oxyhemoglobin ABG Sodium ABG Chloride ABG Glucose Oxyhemoglobin Sodium Potassium Chloride Carbon Dioxide BUN Creatinine Glucose POC Glucose 143 H 107 H Lactic Acid Calcium Phosphorus Magnesium AST ALT Lactate Dehydrogenase Total Bilirubin Direct Bilirubin CK-MB (CK-2) C-Reactive Protein NT-Pro-B Natriuret Pep Total Protein Albumin Arterial Blood Glucose Urine WBC (Auto) Urine Creatinine Digoxin 12/02/19 12/02/19 12/02/19 05:16 06:03 11:52 WBC RBC Hgb Hct MCHC RDW MCV MCH Lymph % (Auto) [place] % (Auto) [place] # Eos # Lymph # (Auto) [place] # (Auto) Eos # (Auto) Seg Neutrophils % Seg Neuts % (Manual) Baso # (Auto) Lymphocytes % (Manual) Monocytes % (Manual) Eosinophils % (Manual) Basophils % (Manual) Seg Neutrophils # Seg Neutrophils # Man Lymphocytes # (Manual) Monocytes # (Manual) Eosinophils # (Manual) Nucleated RBC % Basophils # (Manual) PT INR APTT Heparin Anti-Xa Level ABG pH POC ABG pO2 ABG pO2 ABG HCO3 ABG O2 Saturation ABG Base Excess POC ABG pCO2 ABG Hemoglobin ABG Oxyhemoglobin ABG Sodium ABG Chloride ABG Glucose Oxyhemoglobin Sodium 146 H Potassium Chloride Carbon Dioxide BUN 28 H Creatinine Glucose 123 H POC Glucose 110 H 152 H Lactic Acid Calcium Phosphorus Magnesium AST ALT Lactate Dehydrogenase Total Bilirubin Direct Bilirubin CK-MB (CK-2) C-Reactive Protein NT-Pro-B Natriuret Pep Total Protein Albumin Arterial Blood Glucose Urine WBC (Auto) Urine Creatinine Digoxin 12/02/19 12/02/19 12/02/19 12:58 17:58 23:36 WBC RBC Hgb Hct MCHC RDW MCV MCH Lymph % (Auto) [place] % (Auto) [place] # Eos # Lymph # (Auto) [place] # (Auto) Eos # (Auto) Seg Neutrophils % Seg Neuts % (Manual) Baso # (Auto) Lymphocytes % (Manual) Monocytes % (Manual) Eosinophils % (Manual) Basophils % (Manual) Seg Neutrophils # Seg Neutrophils # Man Lymphocytes # (Manual) Monocytes # (Manual) Eosinophils # (Manual) Nucleated RBC % Basophils # (Manual) PT INR APTT Heparin Anti-Xa Level ABG pH POC ABG pO2 78.1 L ABG pO2 ABG HCO3 ABG O2 Saturation ABG Base Excess POC ABG pCO2 ABG Hemoglobin ABG Oxyhemoglobin ABG Sodium ABG Chloride ABG Glucose Oxyhemoglobin Sodium Potassium Chloride Carbon Dioxide BUN Creatinine Glucose POC Glucose 120 H 123 H Lactic Acid Calcium Phosphorus Magnesium AST ALT Lactate Dehydrogenase Total Bilirubin Direct Bilirubin CK-MB (CK-2) C-Reactive Protein NT-Pro-B Natriuret Pep Total Protein Albumin Arterial Blood Glucose Urine WBC (Auto) Urine Creatinine Digoxin 12/03/19 12/03/19 12/03/19 06:03 06:14 11:46 WBC RBC Hgb Hct MCHC RDW MCV MCH Lymph % (Auto) [place] % (Auto) [place] # Eos # Lymph # (Auto) [place] # (Auto) Eos # (Auto) Seg Neutrophils % Seg Neuts % (Manual) Baso # (Auto) Lymphocytes % (Manual) Monocytes % (Manual) Eosinophils % (Manual) Basophils % (Manual) Seg Neutrophils # Seg Neutrophils # Man Lymphocytes # (Manual) Monocytes # (Manual) Eosinophils # (Manual) Nucleated RBC % Basophils # (Manual) PT INR APTT Heparin Anti-Xa Level ABG pH POC ABG pO2 ABG pO2 ABG HCO3 ABG O2 Saturation ABG Base Excess POC ABG pCO2 ABG Hemoglobin ABG Oxyhemoglobin ABG Sodium ABG Chloride ABG Glucose Oxyhemoglobin Sodium Potassium Chloride Carbon Dioxide BUN Creatinine Glucose POC Glucose 142 H 130 H Lactic Acid Calcium Phosphorus Magnesium AST ALT Lactate Dehydrogenase Total Bilirubin Direct Bilirubin CK-MB (CK-2) C-Reactive Protein NT-Pro-B Natriuret Pep Total Protein Albumin Arterial Blood Glucose Urine WBC (Auto) 8.0 H Urine Creatinine Digoxin 12/03/19 12/03/19 12/04/19 15:50 17:39 00:04 WBC RBC Hgb Hct MCHC RDW MCV MCH Lymph % (Auto) [place] % (Auto) [place] # Eos # Lymph # (Auto) [place] # (Auto) Eos # (Auto) Seg Neutrophils % Seg Neuts % (Manual) Baso # (Auto) Lymphocytes % (Manual) Monocytes % (Manual) Eosinophils % (Manual) Basophils % (Manual) Seg Neutrophils # Seg Neutrophils # Man Lymphocytes # (Manual) Monocytes # (Manual) Eosinophils # (Manual) Nucleated RBC % Basophils # (Manual) PT INR APTT Heparin Anti-Xa Level ABG pH POC ABG pO2 ABG pO2 ABG HCO3 ABG O2 Saturation ABG Base Excess POC ABG pCO2 ABG Hemoglobin ABG Oxyhemoglobin ABG Sodium ABG Chloride ABG Glucose Oxyhemoglobin Sodium Potassium Chloride Carbon Dioxide BUN Creatinine Glucose POC Glucose 146 H 133 H Lactic Acid Calcium Phosphorus 2.40 L Magnesium AST ALT Lactate Dehydrogenase Total Bilirubin Direct Bilirubin CK-MB (CK-2) C-Reactive Protein NT-Pro-B Natriuret Pep Total Protein Albumin Arterial Blood Glucose Urine WBC (Auto) Urine Creatinine Digoxin 12/04/19 12/04/19 12/04/19 03:58 03:58 05:22 WBC 12.5 H RBC Hgb 11.2 L Hct 35.2 L MCHC RDW 16.0 H MCV MCH Lymph % (Auto) [place] % (Auto) 9.6 H [place] # 1.2 H Eos # 0.5 H Lymph # (Auto) [place] # (Auto) Eos # (Auto) Seg Neutrophils % Seg Neuts % (Manual) Baso # (Auto) Lymphocytes % (Manual) Monocytes % (Manual) Eosinophils % (Manual) Basophils % (Manual) Seg Neutrophils # 8.6 H Seg Neutrophils # Man Lymphocytes # (Manual) Monocytes # (Manual) Eosinophils # (Manual) Nucleated RBC % Basophils # (Manual) PT INR APTT Heparin Anti-Xa Level ABG pH POC ABG pO2 ABG pO2 ABG HCO3 ABG O2 Saturation ABG Base Excess POC ABG pCO2 ABG Hemoglobin ABG Oxyhemoglobin ABG Sodium ABG Chloride ABG Glucose Oxyhemoglobin Sodium 146 H Potassium Chloride 108.6 H Carbon Dioxide BUN 30 H Creatinine 0.7 L Glucose 121 H POC Glucose 132 H Lactic Acid Calcium Phosphorus Magnesium AST ALT Lactate Dehydrogenase Total Bilirubin Direct Bilirubin CK-MB (CK-2) C-Reactive Protein NT-Pro-B Natriuret Pep Total Protein Albumin Arterial Blood Glucose Urine WBC (Auto) Urine Creatinine Digoxin 12/04/19 12/04/19 12/05/19 13:26 18:43 00:19 WBC RBC Hgb Hct MCHC RDW MCV MCH Lymph % (Auto) [place] % (Auto) [place] # Eos # Lymph # (Auto) [place] # (Auto) Eos # (Auto) Seg Neutrophils % Seg Neuts % (Manual) Baso # (Auto) Lymphocytes % (Manual) Monocytes % (Manual) Eosinophils % (Manual) Basophils % (Manual) Seg Neutrophils # Seg Neutrophils # Man Lymphocytes # (Manual) Monocytes # (Manual) Eosinophils # (Manual) Nucleated RBC % Basophils # (Manual) PT INR APTT Heparin Anti-Xa Level ABG pH POC ABG pO2 ABG pO2 ABG HCO3 ABG O2 Saturation ABG Base Excess POC ABG pCO2 ABG Hemoglobin ABG Oxyhemoglobin ABG Sodium ABG Chloride ABG Glucose Oxyhemoglobin Sodium Potassium Chloride Carbon Dioxide BUN Creatinine Glucose POC Glucose 185 H 156 H 150 H Lactic Acid Calcium Phosphorus Magnesium AST ALT Lactate Dehydrogenase Total Bilirubin Direct Bilirubin CK-MB (CK-2) C-Reactive Protein NT-Pro-B Natriuret Pep Total Protein Albumin Arterial Blood Glucose Urine WBC (Auto) Urine Creatinine Digoxin 12/05/19 12/05/19 12/05/19 03:37 03:37 05:14 WBC 16.3 H RBC Hgb 11.4 L Hct MCHC RDW 15.6 H MCV MCH Lymph % (Auto) 9.9 L [place] % (Auto) 9.7 H [place] # 1.6 H Eos # Lymph # (Auto) [place] # (Auto) Eos # (Auto) Seg Neutrophils % 78.0 H Seg Neuts % (Manual) Baso # (Auto) Lymphocytes % (Manual) Monocytes % (Manual) Eosinophils % (Manual) Basophils % (Manual) Seg Neutrophils # 12.7 H Seg Neutrophils # Man Lymphocytes # (Manual) Monocytes # (Manual) Eosinophils # (Manual) Nucleated RBC % Basophils # (Manual) PT INR APTT Heparin Anti-Xa Level ABG pH POC ABG pO2 ABG pO2 ABG HCO3 ABG O2 Saturation ABG Base Excess POC ABG pCO2 ABG Hemoglobin ABG Oxyhemoglobin ABG Sodium ABG Chloride ABG Glucose Oxyhemoglobin Sodium 146 H Potassium Chloride 107.2 H Carbon Dioxide BUN 27 H Creatinine 0.7 L Glucose 171 H POC Glucose 168 H Lactic Acid Calcium Phosphorus Magnesium AST ALT Lactate Dehydrogenase Total Bilirubin Direct Bilirubin CK-MB (CK-2) C-Reactive Protein NT-Pro-B Natriuret Pep Total Protein Albumin Arterial Blood Glucose Urine WBC (Auto) Urine Creatinine Digoxin 12/05/19 12/05/19 12/05/19 12:31 18:10 23:58 WBC RBC Hgb Hct MCHC RDW MCV MCH Lymph % (Auto) [place] % (Auto) [place] # Eos # Lymph # (Auto) [place] # (Auto) Eos # (Auto) Seg Neutrophils % Seg Neuts % (Manual) Baso # (Auto) Lymphocytes % (Manual) Monocytes % (Manual) Eosinophils % (Manual) Basophils % (Manual) Seg Neutrophils # Seg Neutrophils # Man Lymphocytes # (Manual) Monocytes # (Manual) Eosinophils # (Manual) Nucleated RBC % Basophils # (Manual) PT INR APTT Heparin Anti-Xa Level ABG pH POC ABG pO2 ABG pO2 ABG HCO3 ABG O2 Saturation ABG Base Excess POC ABG pCO2 ABG Hemoglobin ABG Oxyhemoglobin ABG Sodium ABG Chloride ABG Glucose Oxyhemoglobin Sodium Potassium Chloride Carbon Dioxide BUN Creatinine Glucose POC Glucose 159 H 198 H 115 H Lactic Acid Calcium Phosphorus Magnesium AST ALT Lactate Dehydrogenase Total Bilirubin Direct Bilirubin CK-MB (CK-2) C-Reactive Protein NT-Pro-B Natriuret Pep Total Protein Albumin Arterial Blood Glucose Urine WBC (Auto) Urine Creatinine Digoxin 0912/06/19 12/06/19 05:24 05:24 05:25 WBC 14.9 H RBC Hgb 10.8 L Hct 34.0 L MCHC RDW 15.6 H MCV MCH Lymph % (Auto) 10.7 L [place] % (Auto) 8.3 H [place] # 1.2 H Eos # Lymph # (Auto) [place] # (Auto) Eos # (Auto) Seg Neutrophils % 78.7 H Seg Neuts % (Manual) Baso # (Auto) Lymphocytes % (Manual) Monocytes % (Manual) Eosinophils % (Manual) Basophils % (Manual) Seg Neutrophils # 11.7 H Seg Neutrophils # Man Lymphocytes # (Manual) Monocytes # (Manual) Eosinophils # (Manual) Nucleated RBC % Basophils # (Manual) PT INR APTT Heparin Anti-Xa Level ABG pH POC ABG pO2 ABG pO2 ABG HCO3 ABG O2 Saturation ABG Base Excess POC ABG pCO2 ABG Hemoglobin ABG Oxyhemoglobin ABG Sodium ABG Chloride ABG Glucose Oxyhemoglobin Sodium 148 H Potassium 5.1 H Chloride 107.6 H Carbon Dioxide BUN 27 H Creatinine 0.7 L Glucose 155 H POC Glucose 157 H Lactic Acid Calcium Phosphorus Magnesium AST ALT Lactate Dehydrogenase Total Bilirubin Direct Bilirubin CK-MB (CK-2) C-Reactive Protein NT-Pro-B Natriuret Pep Total Protein Albumin Arterial Blood Glucose Urine WBC (Auto) Urine Creatinine Digoxin 12/07/19 12/07/19 12/07/19 00:13 05:34 11:33 WBC RBC Hgb Hct MCHC RDW MCV MCH Lymph % (Auto) [place] % (Auto) [place] # Eos # Lymph # (Auto) [place] # (Auto) Eos # (Auto) Seg Neutrophils % Seg Neuts % (Manual) Baso # (Auto) Lymphocytes % (Manual) Monocytes % (Manual) Eosinophils % (Manual) Basophils % (Manual) Seg Neutrophils # Seg Neutrophils # Man Lymphocytes # (Manual) Monocytes # (Manual) Eosinophils # (Manual) Nucleated RBC % Basophils # (Manual) PT INR APTT Heparin Anti-Xa Level ABG pH POC ABG pO2 ABG pO2 ABG HCO3 ABG O2 Saturation ABG Base Excess POC ABG pCO2 ABG Hemoglobin ABG Oxyhemoglobin ABG Sodium ABG Chloride ABG Glucose Oxyhemoglobin Sodium Potassium Chloride Carbon Dioxide BUN Creatinine Glucose POC Glucose 142 H 111 H 169 H Lactic Acid Calcium Phosphorus Magnesium AST ALT Lactate Dehydrogenase Total Bilirubin Direct Bilirubin CK-MB (CK-2) C-Reactive Protein NT-Pro-B Natriuret Pep Total Protein Albumin Arterial Blood Glucose Urine WBC (Auto) Urine Creatinine Digoxin 12/07/19 12/07/19 12/07/19 12:41 13:25 18:19 WBC 12.4 H RBC 3.53 L Hgb 10.2 L Hct 32.1 L MCHC RDW 15.3 H MCV MCH Lymph % (Auto) 10.6 L [place] % (Auto) 7.8 H [place] # 1.0 H Eos # Lymph # (Auto) [place] # (Auto) Eos # (Auto) Seg Neutrophils % 77.6 H Seg Neuts % (Manual) Baso # (Auto) Lymphocytes % (Manual) Monocytes % (Manual) Eosinophils % (Manual) Basophils % (Manual) Seg Neutrophils # 9.6 H Seg Neutrophils # Man Lymphocytes # (Manual) Monocytes # (Manual) Eosinophils # (Manual) Nucleated RBC % Basophils # (Manual) PT INR APTT Heparin Anti-Xa Level ABG pH POC ABG pO2 ABG pO2 ABG HCO3 ABG O2 Saturation ABG Base Excess POC ABG pCO2 ABG Hemoglobin ABG Oxyhemoglobin ABG Sodium ABG Chloride ABG Glucose Oxyhemoglobin Sodium 149 H Potassium Chloride 108.4 H Carbon Dioxide BUN 26 H Creatinine 0.6 L Glucose 149 H POC Glucose 164 H Lactic Acid Calcium Phosphorus Magnesium 2.60 H AST 121 H ALT 145 H Lactate Dehydrogenase Total Bilirubin Direct Bilirubin CK-MB (CK-2) C-Reactive Protein NT-Pro-B Natriuret Pep Total Protein Albumin 2.6 L Arterial Blood Glucose Urine WBC (Auto) Urine Creatinine Digoxin 12/07/19 12/08/19 12/08/19 22:25 00:02 03:55 WBC 13.3 H RBC 3.40 L Hgb 9.7 L Hct 30.8 L MCHC 31 L RDW 15.5 H MCV MCH Lymph % (Auto) [place] % (Auto) 8.1 H [place] # 1.1 H Eos # Lymph # (Auto) [place] # (Auto) Eos # (Auto) Seg Neutrophils % 73.0 H Seg Neuts % (Manual) Baso # (Auto) Lymphocytes % (Manual) Monocytes % (Manual) Eosinophils % (Manual) Basophils % (Manual) Seg Neutrophils # 9.7 H Seg Neutrophils # Man Lymphocytes # (Manual) Monocytes # (Manual) Eosinophils # (Manual) Nucleated RBC % Basophils # (Manual) PT INR APTT Heparin Anti-Xa Level 0.12 L ABG pH POC ABG pO2 ABG pO2 ABG HCO3 ABG O2 Saturation ABG Base Excess POC ABG pCO2 ABG Hemoglobin ABG Oxyhemoglobin ABG Sodium ABG Chloride ABG Glucose Oxyhemoglobin Sodium Potassium Chloride Carbon Dioxide BUN Creatinine Glucose POC Glucose 151 H Lactic Acid Calcium Phosphorus Magnesium AST ALT Lactate Dehydrogenase Total Bilirubin Direct Bilirubin CK-MB (CK-2) C-Reactive Protein NT-Pro-B Natriuret Pep Total Protein Albumin Arterial Blood Glucose Urine WBC (Auto) Urine Creatinine Digoxin 12/08/19 12/08/19 12/08/19 03:55 05:21 06:01 WBC RBC Hgb Hct MCHC RDW MCV MCH Lymph % (Auto) [place] % (Auto) [place] # Eos # Lymph # (Auto) [place] # (Auto) Eos # (Auto) Seg Neutrophils % Seg Neuts % (Manual) Baso # (Auto) Lymphocytes % (Manual) Monocytes % (Manual) Eosinophils % (Manual) Basophils % (Manual) Seg Neutrophils # Seg Neutrophils # Man Lymphocytes # (Manual) Monocytes # (Manual) Eosinophils # (Manual) Nucleated RBC % Basophils # (Manual) PT INR APTT Heparin Anti-Xa Level 0.20 L ABG pH POC ABG pO2 ABG pO2 ABG HCO3 ABG O2 Saturation ABG Base Excess POC ABG pCO2 ABG Hemoglobin ABG Oxyhemoglobin ABG Sodium ABG Chloride ABG Glucose Oxyhemoglobin Sodium 149 H Potassium Chloride 108.0 H Carbon Dioxide BUN 28 H Creatinine 0.6 L Glucose 144 H POC Glucose 143 H Lactic Acid Calcium Phosphorus Magnesium AST 98 H ALT 145 H Lactate Dehydrogenase Total Bilirubin Direct Bilirubin CK-MB (CK-2) C-Reactive Protein NT-Pro-B Natriuret Pep Total Protein 6.0 L Albumin 2.4 L Arterial Blood Glucose Urine WBC (Auto) Urine Creatinine Digoxin 12/08/19 12/08/19 12/08/19 12:08 18:11 23:53 WBC RBC Hgb Hct MCHC RDW MCV MCH Lymph % (Auto) [place] % (Auto) [place] # Eos # Lymph # (Auto) [place] # (Auto) Eos # (Auto) Seg Neutrophils % Seg Neuts % (Manual) Baso # (Auto) Lymphocytes % (Manual) Monocytes % (Manual) Eosinophils % (Manual) Basophils % (Manual) Seg Neutrophils # Seg Neutrophils # Man Lymphocytes # (Manual) Monocytes # (Manual) Eosinophils # (Manual) Nucleated RBC % Basophils # (Manual) PT INR APTT Heparin Anti-Xa Level ABG pH POC ABG pO2 ABG pO2 ABG HCO3 ABG O2 Saturation ABG Base Excess POC ABG pCO2 ABG Hemoglobin ABG Oxyhemoglobin ABG Sodium ABG Chloride ABG Glucose Oxyhemoglobin Sodium Potassium Chloride Carbon Dioxide BUN Creatinine Glucose POC Glucose 172 H 122 H 162 H Lactic Acid Calcium Phosphorus Magnesium AST ALT Lactate Dehydrogenase Total Bilirubin Direct Bilirubin CK-MB (CK-2) C-Reactive Protein NT-Pro-B Natriuret Pep Total Protein Albumin Arterial Blood Glucose Urine WBC (Auto) Urine Creatinine Digoxin 12/09/19 12/09/19 12/09/19 04:03 04:03 05:53 WBC RBC Hgb 9.1 L Hct 28.9 L MCHC RDW MCV MCH Lymph % (Auto) [place] % (Auto) [place] # Eos # Lymph # (Auto) [place] # (Auto) Eos # (Auto) Seg Neutrophils % Seg Neuts % (Manual) Baso # (Auto) Lymphocytes % (Manual) Monocytes % (Manual) Eosinophils % (Manual) Basophils % (Manual) Seg Neutrophils # Seg Neutrophils # Man Lymphocytes # (Manual) Monocytes # (Manual) Eosinophils # (Manual) Nucleated RBC % Basophils # (Manual) PT INR APTT Heparin Anti-Xa Level 0.15 L ABG pH POC ABG pO2 ABG pO2 ABG HCO3 ABG O2 Saturation ABG Base Excess POC ABG pCO2 ABG Hemoglobin ABG Oxyhemoglobin ABG Sodium ABG Chloride ABG Glucose Oxyhemoglobin Sodium Potassium Chloride Carbon Dioxide BUN Creatinine Glucose POC Glucose 124 H Lactic Acid Calcium Phosphorus Magnesium AST ALT Lactate Dehydrogenase Total Bilirubin Direct Bilirubin CK-MB (CK-2) C-Reactive Protein NT-Pro-B Natriuret Pep Total Protein Albumin Arterial Blood Glucose Urine WBC (Auto) Urine Creatinine Digoxin 12/09/19 12/09/19 12/10/19 09:43 12:41 00:13 WBC RBC Hgb Hct MCHC RDW MCV MCH Lymph % (Auto) [place] % (Auto) [place] # Eos # Lymph # (Auto) [place] # (Auto) Eos # (Auto) Seg Neutrophils % Seg Neuts % (Manual) Baso # (Auto) Lymphocytes % (Manual) Monocytes % (Manual) Eosinophils % (Manual) Basophils % (Manual) Seg Neutrophils # Seg Neutrophils # Man Lymphocytes # (Manual) Monocytes # (Manual) Eosinophils # (Manual) Nucleated RBC % Basophils # (Manual) PT INR APTT Heparin Anti-Xa Level ABG pH POC ABG pO2 ABG pO2 ABG HCO3 ABG O2 Saturation ABG Base Excess POC ABG pCO2 ABG Hemoglobin ABG Oxyhemoglobin ABG Sodium ABG Chloride ABG Glucose Oxyhemoglobin Sodium Potassium Chloride Carbon Dioxide BUN 25 H Creatinine 0.6 L Glucose 131 H POC Glucose 109 H 120 H Lactic Acid Calcium Phosphorus Magnesium AST ALT Lactate Dehydrogenase Total Bilirubin Direct Bilirubin CK-MB (CK-2) C-Reactive Protein NT-Pro-B Natriuret Pep Total Protein Albumin Arterial Blood Glucose Urine WBC (Auto) Urine Creatinine Digoxin 12/10/19 12/10/19 12/10/19 04:14 04:14 12:00 WBC 13.3 H RBC 3.34 L Hgb 9.6 L Hct 30.4 L MCHC RDW 15.4 H MCV MCH Lymph % (Auto) [place] % (Auto) [place] # Eos # Lymph # (Auto) [place] # (Auto) Eos # (Auto) Seg Neutrophils % Seg Neuts % (Manual) 75.0 H Baso # (Auto) Lymphocytes % (Manual) 13.0 L Monocytes % (Manual) 8.0 H Eosinophils % (Manual) Basophils % (Manual) 2.0 H Seg Neutrophils # Seg Neutrophils # Man 10.0 H Lymphocytes # (Manual) Monocytes # (Manual) 1.1 H Eosinophils # (Manual) Nucleated RBC % Basophils # (Manual) 0.3 H PT INR APTT Heparin Anti-Xa Level ABG pH POC ABG pO2 ABG pO2 ABG HCO3 ABG O2 Saturation ABG Base Excess POC ABG pCO2 ABG Hemoglobin ABG Oxyhemoglobin ABG Sodium ABG Chloride ABG Glucose Oxyhemoglobin Sodium 147 H Potassium Chloride 108.3 H Carbon Dioxide BUN 21 H Creatinine 0.6 L Glucose 104 H POC Glucose 133 H Lactic Acid Calcium Phosphorus Magnesium AST ALT Lactate Dehydrogenase Total Bilirubin Direct Bilirubin CK-MB (CK-2) C-Reactive Protein NT-Pro-B Natriuret Pep Total Protein Albumin Arterial Blood Glucose Urine WBC (Auto) Urine Creatinine Digoxin 12/10/19 12/10/19 12/11/19 18:44 21:20 00:08 WBC 14.9 H RBC 3.36 L Hgb 9.6 L Hct 30.5 L MCHC RDW 15.4 H MCV MCH Lymph % (Auto) [place] % (Auto) [place] # Eos # Lymph # (Auto) [place] # (Auto) Eos # (Auto) Seg Neutrophils % Seg Neuts % (Manual) Baso # (Auto) Lymphocytes % (Manual) Monocytes % (Manual) Eosinophils % (Manual) Basophils % (Manual) Seg Neutrophils # Seg Neutrophils # Man Lymphocytes # (Manual) Monocytes # (Manual) Eosinophils # (Manual) Nucleated RBC % Basophils # (Manual) PT INR APTT Heparin Anti-Xa Level ABG pH POC ABG pO2 ABG pO2 ABG HCO3 ABG O2 Saturation ABG Base Excess POC ABG pCO2 ABG Hemoglobin ABG Oxyhemoglobin ABG Sodium ABG Chloride ABG Glucose Oxyhemoglobin Sodium Potassium Chloride Carbon Dioxide BUN Creatinine Glucose POC Glucose 119 H 134 H Lactic Acid Calcium Phosphorus Magnesium AST ALT Lactate Dehydrogenase Total Bilirubin Direct Bilirubin CK-MB (CK-2) C-Reactive Protein NT-Pro-B Natriuret Pep Total Protein Albumin Arterial Blood Glucose Urine WBC (Auto) Urine Creatinine Digoxin 12/11/19 12/11/19 12/11/19 03:54 07:28 08:36 WBC 11.9 H RBC 3.25 L Hgb 9.6 L Hct 29.2 L MCHC RDW 15.7 H MCV MCH Lymph % (Auto) [place] % (Auto) [place] # Eos # Lymph # (Auto) [place] # (Auto) Eos # (Auto) Seg Neutrophils % Seg Neuts % (Manual) Baso # (Auto) Lymphocytes % (Manual) Monocytes % (Manual) Eosinophils % (Manual) Basophils % (Manual) Seg Neutrophils # Seg Neutrophils # Man Lymphocytes # (Manual) Monocytes # (Manual) Eosinophils # (Manual) Nucleated RBC % Basophils # (Manual) PT INR APTT Heparin Anti-Xa Level 0.10 L 0.16 L ABG pH POC ABG pO2 ABG pO2 ABG HCO3 ABG O2 Saturation ABG Base Excess POC ABG pCO2 ABG Hemoglobin ABG Oxyhemoglobin ABG Sodium ABG Chloride ABG Glucose Oxyhemoglobin Sodium Potassium Chloride Carbon Dioxide BUN Creatinine Glucose POC Glucose Lactic Acid Calcium Phosphorus Magnesium AST ALT Lactate Dehydrogenase Total Bilirubin Direct Bilirubin CK-MB (CK-2) C-Reactive Protein NT-Pro-B Natriuret Pep Total Protein Albumin Arterial Blood Glucose Urine WBC (Auto) Urine Creatinine Digoxin 12/11/19 12/11/19 12/11/19 08:36 11:45 17:15 WBC RBC Hgb Hct MCHC RDW MCV MCH Lymph % (Auto) [place] % (Auto) [place] # Eos # Lymph # (Auto) [place] # (Auto) Eos # (Auto) Seg Neutrophils % Seg Neuts % (Manual) Baso # (Auto) Lymphocytes % (Manual) Monocytes % (Manual) Eosinophils % (Manual) Basophils % (Manual) Seg Neutrophils # Seg Neutrophils # Man Lymphocytes # (Manual) Monocytes # (Manual) Eosinophils # (Manual) Nucleated RBC % Basophils # (Manual) PT INR APTT Heparin Anti-Xa Level ABG pH POC ABG pO2 ABG pO2 ABG HCO3 ABG O2 Saturation ABG Base Excess POC ABG pCO2 ABG Hemoglobin ABG Oxyhemoglobin ABG Sodium ABG Chloride ABG Glucose Oxyhemoglobin Sodium Potassium Chloride Carbon Dioxide BUN Creatinine 0.5 L Glucose 128 H POC Glucose 136 H 109 H Lactic Acid Calcium Phosphorus Magnesium AST ALT Lactate Dehydrogenase Total Bilirubin Direct Bilirubin CK-MB (CK-2) C-Reactive Protein NT-Pro-B Natriuret Pep Total Protein Albumin Arterial Blood Glucose Urine WBC (Auto) Urine Creatinine Digoxin 12/12/19 12/12/19 12/12/19 00:03 05:53 05:53 WBC RBC Hgb 8.8 L Hct 27.6 L MCHC RDW MCV MCH Lymph % (Auto) [place] % (Auto) [place] # Eos # Lymph # (Auto) [place] # (Auto) Eos # (Auto) Seg Neutrophils % Seg Neuts % (Manual) Baso # (Auto) Lymphocytes % (Manual) Monocytes % (Manual) Eosinophils % (Manual) Basophils % (Manual) Seg Neutrophils # Seg Neutrophils # Man Lymphocytes # (Manual) Monocytes # (Manual) Eosinophils # (Manual) Nucleated RBC % Basophils # (Manual) PT INR APTT Heparin Anti-Xa Level 0.22 L ABG pH POC ABG pO2 ABG pO2 ABG HCO3 ABG O2 Saturation ABG Base Excess POC ABG pCO2 ABG Hemoglobin ABG Oxyhemoglobin ABG Sodium ABG Chloride ABG Glucose Oxyhemoglobin Sodium Potassium Chloride Carbon Dioxide BUN Creatinine Glucose POC Glucose 116 H Lactic Acid Calcium Phosphorus Magnesium AST ALT Lactate Dehydrogenase Total Bilirubin Direct Bilirubin CK-MB (CK-2) C-Reactive Protein NT-Pro-B Natriuret Pep Total Protein Albumin Arterial Blood Glucose Urine WBC (Auto) Urine Creatinine Digoxin 12/12/19 12/12/19 12/12/19 09:38 12:18 17:44 WBC RBC Hgb Hct MCHC RDW MCV MCH Lymph % (Auto) [place] % (Auto) [place] # Eos # Lymph # (Auto) [place] # (Auto) Eos # (Auto) Seg Neutrophils % Seg Neuts % (Manual) Baso # (Auto) Lymphocytes % (Manual) Monocytes % (Manual) Eosinophils % (Manual) Basophils % (Manual) Seg Neutrophils # Seg Neutrophils # Man Lymphocytes # (Manual) Monocytes # (Manual) Eosinophils # (Manual) Nucleated RBC % Basophils # (Manual) PT INR APTT Heparin Anti-Xa Level ABG pH POC ABG pO2 ABG pO2 ABG HCO3 ABG O2 Saturation ABG Base Excess POC ABG pCO2 ABG Hemoglobin ABG Oxyhemoglobin ABG Sodium ABG Chloride ABG Glucose Oxyhemoglobin Sodium Potassium Chloride Carbon Dioxide BUN Creatinine Glucose POC Glucose 115 H 146 H 146 H Lactic Acid Calcium Phosphorus Magnesium AST ALT Lactate Dehydrogenase Total Bilirubin Direct Bilirubin CK-MB (CK-2) C-Reactive Protein NT-Pro-B Natriuret Pep Total Protein Albumin Arterial Blood Glucose Urine WBC (Auto) Urine Creatinine Digoxin 12/12/19 12/13/19 12/13/19 23:33 05:32 05:32 WBC 13.1 H RBC 3.27 L Hgb 9.5 L Hct 29.3 L MCHC RDW 15.6 H MCV MCH Lymph % (Auto) [place] % (Auto) [place] # Eos # Lymph # (Auto) [place] # (Auto) Eos # (Auto) Seg Neutrophils % Seg Neuts % (Manual) 74.0 H Baso # (Auto) Lymphocytes % (Manual) 8.0 L Monocytes % (Manual) 9.0 H Eosinophils % (Manual) 5.0 H Basophils % (Manual) Seg Neutrophils # Seg Neutrophils # Man 9.7 H Lymphocytes # (Manual) 1.0 L Monocytes # (Manual) 1.2 H Eosinophils # (Manual) 0.7 H Nucleated RBC % Basophils # (Manual) PT INR APTT Heparin Anti-Xa Level 0.20 L ABG pH POC ABG pO2 ABG pO2 ABG HCO3 ABG O2 Saturation ABG Base Excess POC ABG pCO2 ABG Hemoglobin ABG Oxyhemoglobin ABG Sodium ABG Chloride ABG Glucose Oxyhemoglobin Sodium Potassium Chloride Carbon Dioxide BUN Creatinine Glucose POC Glucose 126 H Lactic Acid Calcium Phosphorus Magnesium AST ALT Lactate Dehydrogenase Total Bilirubin Direct Bilirubin CK-MB (CK-2) C-Reactive Protein NT-Pro-B Natriuret Pep Total Protein Albumin Arterial Blood Glucose Urine WBC (Auto) Urine Creatinine Digoxin 12/13/19 12/13/19 12/13/19 05:32 05:46 11:57 WBC RBC Hgb Hct MCHC RDW MCV MCH Lymph % (Auto) [place] % (Auto) [place] # Eos # Lymph # (Auto) [place] # (Auto) Eos # (Auto) Seg Neutrophils % Seg Neuts % (Manual) Baso # (Auto) Lymphocytes % (Manual) Monocytes % (Manual) Eosinophils % (Manual) Basophils % (Manual) Seg Neutrophils # Seg Neutrophils # Man Lymphocytes # (Manual) Monocytes # (Manual) Eosinophils # (Manual) Nucleated RBC % Basophils # (Manual) PT INR APTT Heparin Anti-Xa Level ABG pH POC ABG pO2 ABG pO2 ABG HCO3 ABG O2 Saturation ABG Base Excess POC ABG pCO2 ABG Hemoglobin ABG Oxyhemoglobin ABG Sodium ABG Chloride ABG Glucose Oxyhemoglobin Sodium Potassium Chloride Carbon Dioxide 31 H BUN Creatinine 0.6 L Glucose 114 H POC Glucose 118 H 133 H Lactic Acid Calcium Phosphorus Magnesium AST ALT Lactate Dehydrogenase Total Bilirubin Direct Bilirubin CK-MB (CK-2) C-Reactive Protein NT-Pro-B Natriuret Pep Total Protein Albumin Arterial Blood Glucose Urine WBC (Auto) Urine Creatinine Digoxin 12/13/19 12/13/19 12/14/19 17:44 23:46 05:32 WBC RBC Hgb Hct MCHC RDW MCV MCH Lymph % (Auto) [place] % (Auto) [place] # Eos # Lymph # (Auto) [place] # (Auto) Eos # (Auto) Seg Neutrophils % Seg Neuts % (Manual) Baso # (Auto) Lymphocytes % (Manual) Monocytes % (Manual) Eosinophils % (Manual) Basophils % (Manual) Seg Neutrophils # Seg Neutrophils # Man Lymphocytes # (Manual) Monocytes # (Manual) Eosinophils # (Manual) Nucleated RBC % Basophils # (Manual) PT INR APTT Heparin Anti-Xa Level ABG pH POC ABG pO2 ABG pO2 ABG HCO3 ABG O2 Saturation ABG Base Excess POC ABG pCO2 ABG Hemoglobin ABG Oxyhemoglobin ABG Sodium ABG Chloride ABG Glucose Oxyhemoglobin Sodium Potassium Chloride Carbon Dioxide BUN Creatinine Glucose POC Glucose 161 H 126 H 139 H Lactic Acid Calcium Phosphorus Magnesium AST ALT Lactate Dehydrogenase Total Bilirubin Direct Bilirubin CK-MB (CK-2) C-Reactive Protein NT-Pro-B Natriuret Pep Total Protein Albumin Arterial Blood Glucose Urine WBC (Auto) Urine Creatinine Digoxin 12/14/19 12/14/19 12/14/19 06:03 06:03 09:37 WBC RBC Hgb 9.6 L Hct 30.4 L MCHC RDW MCV MCH Lymph % (Auto) [place] % (Auto) [place] # Eos # Lymph # (Auto) [place] # (Auto) Eos # (Auto) Seg Neutrophils % Seg Neuts % (Manual) Baso # (Auto) Lymphocytes % (Manual) Monocytes % (Manual) Eosinophils % (Manual) Basophils % (Manual) Seg Neutrophils # Seg Neutrophils # Man Lymphocytes # (Manual) Monocytes # (Manual) Eosinophils # (Manual) Nucleated RBC % Basophils # (Manual) PT INR APTT Heparin Anti-Xa Level 0.24 L ABG pH POC ABG pO2 ABG pO2 ABG HCO3 ABG O2 Saturation ABG Base Excess POC ABG pCO2 ABG Hemoglobin ABG Oxyhemoglobin ABG Sodium ABG Chloride ABG Glucose Oxyhemoglobin Sodium Potassium Chloride Carbon Dioxide BUN Creatinine 0.6 L Glucose 162 H POC Glucose Lactic Acid Calcium Phosphorus Magnesium AST 71 H ALT 118 H Lactate Dehydrogenase Total Bilirubin Direct Bilirubin CK-MB (CK-2) C-Reactive Protein NT-Pro-B Natriuret Pep Total Protein 6.2 L Albumin 2.3 L Arterial Blood Glucose Urine WBC (Auto) Urine Creatinine Digoxin 12/14/19 12/14/19 12/15/19 12:06 18:18 00:19 WBC RBC Hgb Hct MCHC RDW MCV MCH Lymph % (Auto) [place] % (Auto) [place] # Eos # Lymph # (Auto) [place] # (Auto) Eos # (Auto) Seg Neutrophils % Seg Neuts % (Manual) Baso # (Auto) Lymphocytes % (Manual) Monocytes % (Manual) Eosinophils % (Manual) Basophils % (Manual) Seg Neutrophils # Seg Neutrophils # Man Lymphocytes # (Manual) Monocytes # (Manual) Eosinophils # (Manual) Nucleated RBC % Basophils # (Manual) PT INR APTT Heparin Anti-Xa Level ABG pH POC ABG pO2 ABG pO2 ABG HCO3 ABG O2 Saturation ABG Base Excess POC ABG pCO2 ABG Hemoglobin ABG Oxyhemoglobin ABG Sodium ABG Chloride ABG Glucose Oxyhemoglobin Sodium Potassium Chloride Carbon Dioxide BUN Creatinine Glucose POC Glucose 147 H 166 H 123 H Lactic Acid Calcium Phosphorus Magnesium AST ALT Lactate Dehydrogenase Total Bilirubin Direct Bilirubin CK-MB (CK-2) C-Reactive Protein NT-Pro-B Natriuret Pep Total Protein Albumin Arterial Blood Glucose Urine WBC (Auto) Urine Creatinine Digoxin 12/15/19 12/15/19 12/15/19 05:28 05:29 05:29 WBC 14.9 H RBC 3.19 L Hgb 9.1 L Hct 28.7 L MCHC RDW 16.0 H MCV MCH Lymph % (Auto) [place] % (Auto) [place] # Eos # Lymph # (Auto) [place] # (Auto) Eos # (Auto) Seg Neutrophils % Seg Neuts % (Manual) Baso # (Auto) Lymphocytes % (Manual) Monocytes % (Manual) Eosinophils % (Manual) Basophils % (Manual) Seg Neutrophils # Seg Neutrophils # Man Lymphocytes # (Manual) Monocytes # (Manual) Eosinophils # (Manual) Nucleated RBC % Basophils # (Manual) PT INR APTT Heparin Anti-Xa Level 0.19 L ABG pH POC ABG pO2 ABG pO2 ABG HCO3 ABG O2 Saturation ABG Base Excess POC ABG pCO2 ABG Hemoglobin ABG Oxyhemoglobin ABG Sodium ABG Chloride ABG Glucose Oxyhemoglobin Sodium Potassium Chloride Carbon Dioxide BUN Creatinine 0.6 L Glucose 110 H POC Glucose Lactic Acid Calcium Phosphorus Magnesium AST ALT Lactate Dehydrogenase Total Bilirubin Direct Bilirubin CK-MB (CK-2) C-Reactive Protein NT-Pro-B Natriuret Pep Total Protein Albumin Arterial Blood Glucose Urine WBC (Auto) Urine Creatinine Digoxin 12/15/19 12/15/19 12/15/19 05:53 11:50 17:26 WBC RBC Hgb Hct MCHC RDW MCV MCH Lymph % (Auto) [place] % (Auto) [place] # Eos # Lymph # (Auto) [place] # (Auto) Eos # (Auto) Seg Neutrophils % Seg Neuts % (Manual) Baso # (Auto) Lymphocytes % (Manual) Monocytes % (Manual) Eosinophils % (Manual) Basophils % (Manual) Seg Neutrophils # Seg Neutrophils # Man Lymphocytes # (Manual) Monocytes # (Manual) Eosinophils # (Manual) Nucleated RBC % Basophils # (Manual) PT INR APTT Heparin Anti-Xa Level ABG pH POC ABG pO2 ABG pO2 ABG HCO3 ABG O2 Saturation ABG Base Excess POC ABG pCO2 ABG Hemoglobin ABG Oxyhemoglobin ABG Sodium ABG Chloride ABG Glucose Oxyhemoglobin Sodium Potassium Chloride Carbon Dioxide BUN Creatinine Glucose POC Glucose 119 H 132 H 128 H Lactic Acid Calcium Phosphorus Magnesium AST ALT Lactate Dehydrogenase Total Bilirubin Direct Bilirubin CK-MB (CK-2) C-Reactive Protein NT-Pro-B Natriuret Pep Total Protein Albumin Arterial Blood Glucose Urine WBC (Auto) Urine Creatinine Digoxin 12/15/19 12/16/19 12/16/19 23:11 05:30 05:46 WBC RBC Hgb 8.8 L Hct 27.9 L MCHC RDW MCV MCH Lymph % (Auto) [place] % (Auto) [place] # Eos # Lymph # (Auto) [place] # (Auto) Eos # (Auto) Seg Neutrophils % Seg Neuts % (Manual) Baso # (Auto) Lymphocytes % (Manual) Monocytes % (Manual) Eosinophils % (Manual) Basophils % (Manual) Seg Neutrophils # Seg Neutrophils # Man Lymphocytes # (Manual) Monocytes # (Manual) Eosinophils # (Manual) Nucleated RBC % Basophils # (Manual) PT INR APTT Heparin Anti-Xa Level ABG pH POC ABG pO2 ABG pO2 ABG HCO3 ABG O2 Saturation ABG Base Excess POC ABG pCO2 ABG Hemoglobin ABG Oxyhemoglobin ABG Sodium ABG Chloride ABG Glucose Oxyhemoglobin Sodium Potassium Chloride Carbon Dioxide BUN Creatinine Glucose POC Glucose 150 H 134 H Lactic Acid Calcium Phosphorus Magnesium AST ALT Lactate Dehydrogenase Total Bilirubin Direct Bilirubin CK-MB (CK-2) C-Reactive Protein NT-Pro-B Natriuret Pep Total Protein Albumin Arterial Blood Glucose Urine WBC (Auto) Urine Creatinine Digoxin 12/16/19 12/16/19 12/16/19 05:46 05:46 11:44 WBC RBC Hgb Hct MCHC RDW MCV MCH Lymph % (Auto) [place] % (Auto) [place] # Eos # Lymph # (Auto) [place] # (Auto) Eos # (Auto) Seg Neutrophils % Seg Neuts % (Manual) Baso # (Auto) Lymphocytes % (Manual) Monocytes % (Manual) Eosinophils % (Manual) Basophils % (Manual) Seg Neutrophils # Seg Neutrophils # Man Lymphocytes # (Manual) Monocytes # (Manual) Eosinophils # (Manual) Nucleated RBC % Basophils # (Manual) PT INR APTT Heparin Anti-Xa Level 0.20 L ABG pH POC ABG pO2 ABG pO2 ABG HCO3 ABG O2 Saturation ABG Base Excess POC ABG pCO2 ABG Hemoglobin ABG Oxyhemoglobin ABG Sodium ABG Chloride ABG Glucose Oxyhemoglobin Sodium Potassium Chloride Carbon Dioxide 31 H BUN Creatinine 0.5 L Glucose 147 H POC Glucose 164 H Lactic Acid Calcium Phosphorus Magnesium AST ALT Lactate Dehydrogenase Total Bilirubin Direct Bilirubin CK-MB (CK-2) C-Reactive Protein NT-Pro-B Natriuret Pep Total Protein Albumin Arterial Blood Glucose Urine WBC (Auto) Urine Creatinine Digoxin 12/16/19 12/16/19 12/17/19 17:17 23:49 05:30 WBC 13.9 H RBC 3.27 L Hgb 9.4 L Hct 29.2 L MCHC RDW 16.0 H MCV MCH Lymph % (Auto) [place] % (Auto) 8.8 H [place] # Eos # Lymph # (Auto) [place] # (Auto) 1.2 H Eos # (Auto) 0.5 H Seg Neutrophils % 70.5 H Seg Neuts % (Manual) Baso # (Auto) 0.2 H Lymphocytes % (Manual) Monocytes % (Manual) Eosinophils % (Manual) Basophils % (Manual) Seg Neutrophils # 9.8 H Seg Neutrophils # Man Lymphocytes # (Manual) Monocytes # (Manual) Eosinophils # (Manual) Nucleated RBC % Basophils # (Manual) PT INR APTT Heparin Anti-Xa Level ABG pH POC ABG pO2 ABG pO2 ABG HCO3 ABG O2 Saturation ABG Base Excess POC ABG pCO2 ABG Hemoglobin ABG Oxyhemoglobin ABG Sodium ABG Chloride ABG Glucose Oxyhemoglobin Sodium Potassium Chloride Carbon Dioxide BUN Creatinine Glucose POC Glucose 162 H 144 H Lactic Acid Calcium Phosphorus Magnesium AST ALT Lactate Dehydrogenase Total Bilirubin Direct Bilirubin CK-MB (CK-2) C-Reactive Protein NT-Pro-B Natriuret Pep Total Protein Albumin Arterial Blood Glucose Urine WBC (Auto) Urine Creatinine Digoxin 12/17/19 12/17/19 12/17/19 05:30 06:06 11:50 WBC RBC Hgb Hct MCHC RDW MCV MCH Lymph % (Auto) [place] % (Auto) [place] # Eos # Lymph # (Auto) [place] # (Auto) Eos # (Auto) Seg Neutrophils % Seg Neuts % (Manual) Baso # (Auto) Lymphocytes % (Manual) Monocytes % (Manual) Eosinophils % (Manual) Basophils % (Manual) Seg Neutrophils # Seg Neutrophils # Man Lymphocytes # (Manual) Monocytes # (Manual) Eosinophils # (Manual) Nucleated RBC % Basophils # (Manual) PT INR APTT Heparin Anti-Xa Level ABG pH POC ABG pO2 ABG pO2 ABG HCO3 ABG O2 Saturation ABG Base Excess POC ABG pCO2 ABG Hemoglobin ABG Oxyhemoglobin ABG Sodium ABG Chloride ABG Glucose Oxyhemoglobin Sodium Potassium Chloride 97.4 L Carbon Dioxide 32 H BUN Creatinine 0.5 L Glucose 135 H POC Glucose 151 H 140 H Lactic Acid Calcium Phosphorus Magnesium AST ALT Lactate Dehydrogenase Total Bilirubin Direct Bilirubin CK-MB (CK-2) C-Reactive Protein NT-Pro-B Natriuret Pep Total Protein Albumin Arterial Blood Glucose Urine WBC (Auto) Urine Creatinine Digoxin 12/17/19 12/17/19 12/18/19 17:50 23:46 05:17 WBC RBC Hgb 8.8 L Hct 28.0 L MCHC RDW MCV MCH Lymph % (Auto) [place] % (Auto) [place] # Eos # Lymph # (Auto) [place] # (Auto) Eos # (Auto) Seg Neutrophils % Seg Neuts % (Manual) Baso # (Auto) Lymphocytes % (Manual) Monocytes % (Manual) Eosinophils % (Manual) Basophils % (Manual) Seg Neutrophils # Seg Neutrophils # Man Lymphocytes # (Manual) Monocytes # (Manual) Eosinophils # (Manual) Nucleated RBC % Basophils # (Manual) PT INR APTT Heparin Anti-Xa Level ABG pH POC ABG pO2 ABG pO2 ABG HCO3 ABG O2 Saturation ABG Base Excess POC ABG pCO2 ABG Hemoglobin ABG Oxyhemoglobin ABG Sodium ABG Chloride ABG Glucose Oxyhemoglobin Sodium Potassium Chloride Carbon Dioxide BUN Creatinine Glucose POC Glucose 158 H 150 H Lactic Acid Calcium Phosphorus Magnesium AST ALT Lactate Dehydrogenase Total Bilirubin Direct Bilirubin CK-MB (CK-2) C-Reactive Protein NT-Pro-B Natriuret Pep Total Protein Albumin Arterial Blood Glucose Urine WBC (Auto) Urine Creatinine Digoxin 12/18/19 12/18/19 12/18/19 05:17 05:49 11:12 WBC RBC Hgb Hct MCHC RDW MCV MCH Lymph % (Auto) [place] % (Auto) [place] # Eos # Lymph # (Auto) [place] # (Auto) Eos # (Auto) Seg Neutrophils % Seg Neuts % (Manual) Baso # (Auto) Lymphocytes % (Manual) Monocytes % (Manual) Eosinophils % (Manual) Basophils % (Manual) Seg Neutrophils # Seg Neutrophils # Man Lymphocytes # (Manual) Monocytes # (Manual) Eosinophils # (Manual) Nucleated RBC % Basophils # (Manual) PT INR APTT Heparin Anti-Xa Level 0.16 L ABG pH POC ABG pO2 ABG pO2 ABG HCO3 ABG O2 Saturation ABG Base Excess POC ABG pCO2 ABG Hemoglobin ABG Oxyhemoglobin ABG Sodium ABG Chloride ABG Glucose Oxyhemoglobin Sodium Potassium Chloride Carbon Dioxide BUN Creatinine Glucose POC Glucose 127 H 191 H Lactic Acid Calcium Phosphorus Magnesium AST ALT Lactate Dehydrogenase Total Bilirubin Direct Bilirubin CK-MB (CK-2) C-Reactive Protein NT-Pro-B Natriuret Pep Total Protein Albumin Arterial Blood Glucose Urine WBC (Auto) Urine Creatinine Digoxin 12/18/19 12/18/19 12/19/19 17:03 20:16 00:08 WBC RBC Hgb Hct MCHC RDW MCV MCH Lymph % (Auto) [place] % (Auto) [place] # Eos # Lymph # (Auto) [place] # (Auto) Eos # (Auto) Seg Neutrophils % Seg Neuts % (Manual) Baso # (Auto) Lymphocytes % (Manual) Monocytes % (Manual) Eosinophils % (Manual) Basophils % (Manual) Seg Neutrophils # Seg Neutrophils # Man Lymphocytes # (Manual) Monocytes # (Manual) Eosinophils # (Manual) Nucleated RBC % Basophils # (Manual) PT INR APTT Heparin Anti-Xa Level ABG pH POC ABG pO2 ABG pO2 ABG HCO3 ABG O2 Saturation ABG Base Excess POC ABG pCO2 ABG Hemoglobin ABG Oxyhemoglobin ABG Sodium ABG Chloride ABG Glucose Oxyhemoglobin Sodium Potassium Chloride Carbon Dioxide BUN Creatinine Glucose POC Glucose 133 H 128 H 129 H Lactic Acid Calcium Phosphorus Magnesium AST ALT Lactate Dehydrogenase Total Bilirubin Direct Bilirubin CK-MB (CK-2) C-Reactive Protein NT-Pro-B Natriuret Pep Total Protein Albumin Arterial Blood Glucose Urine WBC (Auto) Urine Creatinine Digoxin 12/19/19 12/19/19 12/19/19 04:45 04:45 05:35 WBC RBC Hgb Hct MCHC RDW MCV MCH Lymph % (Auto) [place] % (Auto) [place] # Eos # Lymph # (Auto) [place] # (Auto) Eos # (Auto) Seg Neutrophils % Seg Neuts % (Manual) Baso # (Auto) Lymphocytes % (Manual) Monocytes % (Manual) Eosinophils % (Manual) Basophils % (Manual) Seg Neutrophils # Seg Neutrophils # Man Lymphocytes # (Manual) Monocytes # (Manual) Eosinophils # (Manual) Nucleated RBC % Basophils # (Manual) PT INR APTT Heparin Anti-Xa Level 0.17 L ABG pH POC ABG pO2 ABG pO2 ABG HCO3 ABG O2 Saturation ABG Base Excess POC ABG pCO2 ABG Hemoglobin ABG Oxyhemoglobin ABG Sodium ABG Chloride ABG Glucose Oxyhemoglobin Sodium Potassium Chloride Carbon Dioxide BUN Creatinine Glucose POC Glucose 120 H Lactic Acid Calcium Phosphorus Magnesium AST ALT Lactate Dehydrogenase 228 H Total Bilirubin Direct Bilirubin CK-MB (CK-2) C-Reactive Protein NT-Pro-B Natriuret Pep Total Protein Albumin Arterial Blood Glucose Urine WBC (Auto) Urine Creatinine Digoxin 12/19/19 12/19/19 12/19/19 09:20 11:32 11:32 WBC 14.6 H RBC 3.08 L Hgb 9.0 L Hct 26.8 L MCHC RDW 15.9 H MCV MCH Lymph % (Auto) [place] % (Auto) [place] # Eos # Lymph # (Auto) [place] # (Auto) Eos # (Auto) Seg Neutrophils % Seg Neuts % (Manual) 82.0 H Baso # (Auto) Lymphocytes % (Manual) 10.0 L Monocytes % (Manual) Eosinophils % (Manual) Basophils % (Manual) Seg Neutrophils # Seg Neutrophils # Man 12.0 H Lymphocytes # (Manual) Monocytes # (Manual) 0.9 H Eosinophils # (Manual) Nucleated RBC % 1.0 H Basophils # (Manual) PT INR APTT Heparin Anti-Xa Level ABG pH 7.451 H POC ABG pO2 ABG pO2 62.6 L ABG HCO3 33.2 H ABG O2 Saturation 93.8 L ABG Base Excess 8.3 H POC ABG pCO2 ABG Hemoglobin 8.3 L ABG Oxyhemoglobin ABG Sodium ABG Chloride ABG Glucose Oxyhemoglobin 91.9 L Sodium Potassium Chloride 95.0 L Carbon Dioxide 33 H BUN 22 H Creatinine 0.6 L Glucose 150 H POC Glucose Lactic Acid Calcium Phosphorus Magnesium AST ALT Lactate Dehydrogenase Total Bilirubin Direct Bilirubin CK-MB (CK-2) C-Reactive Protein NT-Pro-B Natriuret Pep Total Protein 6.2 L Albumin 2.4 L Arterial Blood Glucose Urine WBC (Auto) Urine Creatinine Digoxin 12/19/19 12/19/19 12/20/19 11:56 18:17 00:09 WBC RBC Hgb Hct MCHC RDW MCV MCH Lymph % (Auto) [place] % (Auto) [place] # Eos # Lymph # (Auto) [place] # (Auto) Eos # (Auto) Seg Neutrophils % Seg Neuts % (Manual) Baso # (Auto) Lymphocytes % (Manual) Monocytes % (Manual) Eosinophils % (Manual) Basophils % (Manual) Seg Neutrophils # Seg Neutrophils # Man Lymphocytes # (Manual) Monocytes # (Manual) Eosinophils # (Manual) Nucleated RBC % Basophils # (Manual) PT INR APTT Heparin Anti-Xa Level ABG pH POC ABG pO2 ABG pO2 ABG HCO3 ABG O2 Saturation ABG Base Excess POC ABG pCO2 ABG Hemoglobin ABG Oxyhemoglobin ABG Sodium ABG Chloride ABG Glucose Oxyhemoglobin Sodium Potassium Chloride Carbon Dioxide BUN Creatinine Glucose POC Glucose 156 H 156 H 155 H Lactic Acid Calcium Phosphorus Magnesium AST ALT Lactate Dehydrogenase Total Bilirubin Direct Bilirubin CK-MB (CK-2) C-Reactive Protein NT-Pro-B Natriuret Pep Total Protein Albumin Arterial Blood Glucose Urine WBC (Auto) Urine Creatinine Digoxin 12/20/19 12/20/19 12/20/19 05:26 06:02 18:17 WBC RBC Hgb Hct MCHC RDW MCV MCH Lymph % (Auto) [place] % (Auto) [place] # Eos # Lymph # (Auto) [place] # (Auto) Eos # (Auto) Seg Neutrophils % Seg Neuts % (Manual) Baso # (Auto) Lymphocytes % (Manual) Monocytes % (Manual) Eosinophils % (Manual) Basophils % (Manual) Seg Neutrophils # Seg Neutrophils # Man Lymphocytes # (Manual) Monocytes # (Manual) Eosinophils # (Manual) Nucleated RBC % Basophils # (Manual) PT INR APTT Heparin Anti-Xa Level 0.19 L ABG pH POC ABG pO2 ABG pO2 ABG HCO3 ABG O2 Saturation ABG Base Excess POC ABG pCO2 ABG Hemoglobin ABG Oxyhemoglobin ABG Sodium ABG Chloride ABG Glucose Oxyhemoglobin Sodium Potassium Chloride Carbon Dioxide BUN Creatinine Glucose POC Glucose 137 H 128 H Lactic Acid Calcium Phosphorus Magnesium AST ALT Lactate Dehydrogenase Total Bilirubin Direct Bilirubin CK-MB (CK-2) C-Reactive Protein NT-Pro-B Natriuret Pep Total Protein Albumin Arterial Blood Glucose Urine WBC (Auto) Urine Creatinine Digoxin 12/20/19 12/21/19 12/21/19 23:34 05:31 05:31 WBC 12.7 H RBC 3.09 L Hgb 8.9 L Hct 27.4 L MCHC RDW 15.8 H MCV MCH Lymph % (Auto) 12.1 L [place] % (Auto) 7.8 H [place] # Eos # Lymph # (Auto) [place] # (Auto) 1.0 H Eos # (Auto) Seg Neutrophils % 77.1 H Seg Neuts % (Manual) Baso # (Auto) Lymphocytes % (Manual) Monocytes % (Manual) Eosinophils % (Manual) Basophils % (Manual) Seg Neutrophils # 9.8 H Seg Neutrophils # Man Lymphocytes # (Manual) Monocytes # (Manual) Eosinophils # (Manual) Nucleated RBC % Basophils # (Manual) PT INR APTT Heparin Anti-Xa Level ABG pH POC ABG pO2 ABG pO2 ABG HCO3 ABG O2 Saturation ABG Base Excess POC ABG pCO2 ABG Hemoglobin ABG Oxyhemoglobin ABG Sodium ABG Chloride ABG Glucose Oxyhemoglobin Sodium Potassium Chloride 96.9 L Carbon Dioxide 37 H BUN 27 H Creatinine 0.7 L Glucose 140 H POC Glucose 145 H Lactic Acid Calcium Phosphorus Magnesium AST ALT Lactate Dehydrogenase Total Bilirubin Direct Bilirubin CK-MB (CK-2) C-Reactive Protein NT-Pro-B Natriuret Pep Total Protein Albumin Arterial Blood Glucose Urine WBC (Auto) Urine Creatinine Digoxin 12/21/19 12/21/19 12/21/19 05:38 10:13 11:51 WBC RBC Hgb Hct MCHC RDW MCV MCH Lymph % (Auto) [place] % (Auto) [place] # Eos # Lymph # (Auto) [place] # (Auto) Eos # (Auto) Seg Neutrophils % Seg Neuts % (Manual) Baso # (Auto) Lymphocytes % (Manual) Monocytes % (Manual) Eosinophils % (Manual) Basophils % (Manual) Seg Neutrophils # Seg Neutrophils # Man Lymphocytes # (Manual) Monocytes # (Manual) Eosinophils # (Manual) Nucleated RBC % Basophils # (Manual) PT INR APTT 23.9 L Heparin Anti-Xa Level < 0.10 L ABG pH POC ABG pO2 ABG pO2 ABG HCO3 ABG O2 Saturation ABG Base Excess POC ABG pCO2 ABG Hemoglobin ABG Oxyhemoglobin ABG Sodium ABG Chloride ABG Glucose Oxyhemoglobin Sodium Potassium Chloride Carbon Dioxide BUN Creatinine Glucose POC Glucose 151 H 145 H Lactic Acid Calcium Phosphorus Magnesium AST ALT Lactate Dehydrogenase Total Bilirubin Direct Bilirubin CK-MB (CK-2) C-Reactive Protein NT-Pro-B Natriuret Pep Total Protein Albumin Arterial Blood Glucose Urine WBC (Auto) Urine Creatinine Digoxin 12/21/19 12/22/19 12/22/19 17:16 00:01 01:33 WBC RBC Hgb Hct MCHC RDW MCV MCH Lymph % (Auto) [place] % (Auto) [place] # Eos # Lymph # (Auto) [place] # (Auto) Eos # (Auto) Seg Neutrophils % Seg Neuts % (Manual) Baso # (Auto) Lymphocytes % (Manual) Monocytes % (Manual) Eosinophils % (Manual) Basophils % (Manual) Seg Neutrophils # Seg Neutrophils # Man Lymphocytes # (Manual) Monocytes # (Manual) Eosinophils # (Manual) Nucleated RBC % Basophils # (Manual) PT INR APTT Heparin Anti-Xa Level 0.10 L ABG pH POC ABG pO2 ABG pO2 ABG HCO3 ABG O2 Saturation ABG Base Excess POC ABG pCO2 ABG Hemoglobin ABG Oxyhemoglobin ABG Sodium ABG Chloride ABG Glucose Oxyhemoglobin Sodium Potassium Chloride Carbon Dioxide BUN Creatinine Glucose POC Glucose 167 H 179 H Lactic Acid Calcium Phosphorus Magnesium AST ALT Lactate Dehydrogenase Total Bilirubin Direct Bilirubin CK-MB (CK-2) C-Reactive Protein NT-Pro-B Natriuret Pep Total Protein Albumin Arterial Blood Glucose Urine WBC (Auto) Urine Creatinine Digoxin 12/22/19 12/22/19 12/22/19 03:22 05:10 05:10 WBC 13.8 H RBC 3.20 L Hgb 8.9 L Hct 28.1 L MCHC RDW 15.9 H MCV MCH Lymph % (Auto) [place] % (Auto) [place] # Eos # Lymph # (Auto) [place] # (Auto) Eos # (Auto) Seg Neutrophils % Seg Neuts % (Manual) Baso # (Auto) Lymphocytes % (Manual) Monocytes % (Manual) Eosinophils % (Manual) Basophils % (Manual) Seg Neutrophils # Seg Neutrophils # Man Lymphocytes # (Manual) Monocytes # (Manual) Eosinophils # (Manual) Nucleated RBC % Basophils # (Manual) PT INR APTT Heparin Anti-Xa Level ABG pH POC ABG pO2 52.3 L ABG pO2 ABG HCO3 ABG O2 Saturation ABG Base Excess POC ABG pCO2 52.9 H ABG Hemoglobin 10.7 L ABG Oxyhemoglobin 84 L ABG Sodium ABG Chloride ABG Glucose Oxyhemoglobin Sodium Potassium Chloride 96.6 L Carbon Dioxide BUN 25 H Creatinine 0.7 L Glucose 129 H POC Glucose Lactic Acid Calcium Phosphorus Magnesium AST ALT Lactate Dehydrogenase Total Bilirubin Direct Bilirubin CK-MB (CK-2) C-Reactive Protein NT-Pro-B Natriuret Pep Total Protein Albumin Arterial Blood Glucose Urine WBC (Auto) Urine Creatinine Digoxin 12/22/19 12/22/19 12/22/19 05:18 12:32 12:43 WBC RBC Hgb Hct MCHC RDW MCV MCH Lymph % (Auto) [place] % (Auto) [place] # Eos # Lymph # (Auto) [place] # (Auto) Eos # (Auto) Seg Neutrophils % Seg Neuts % (Manual) Baso # (Auto) Lymphocytes % (Manual) Monocytes % (Manual) Eosinophils % (Manual) Basophils % (Manual) Seg Neutrophils # Seg Neutrophils # Man Lymphocytes # (Manual) Monocytes # (Manual) Eosinophils # (Manual) Nucleated RBC % Basophils # (Manual) PT INR APTT Heparin Anti-Xa Level 0.18 L ABG pH POC ABG pO2 ABG pO2 ABG HCO3 ABG O2 Saturation ABG Base Excess POC ABG pCO2 ABG Hemoglobin ABG Oxyhemoglobin ABG Sodium ABG Chloride ABG Glucose Oxyhemoglobin Sodium Potassium Chloride Carbon Dioxide BUN Creatinine Glucose POC Glucose 131 H 208 H Lactic Acid Calcium Phosphorus Magnesium AST ALT Lactate Dehydrogenase Total Bilirubin Direct Bilirubin CK-MB (CK-2) C-Reactive Protein NT-Pro-B Natriuret Pep Total Protein Albumin Arterial Blood Glucose Urine WBC (Auto) Urine Creatinine Digoxin 12/22/19 12/22/19 12/23/19 17:44 23:20 03:51 WBC 15.2 H RBC 3.43 L Hgb 9.6 L Hct 30.3 L MCHC RDW 15.9 H MCV MCH Lymph % (Auto) [place] % (Auto) [place] # Eos # Lymph # (Auto) [place] # (Auto) Eos # (Auto) Seg Neutrophils % Seg Neuts % (Manual) Baso # (Auto) Lymphocytes % (Manual) Monocytes % (Manual) Eosinophils % (Manual) Basophils % (Manual) Seg Neutrophils # Seg Neutrophils # Man Lymphocytes # (Manual) Monocytes # (Manual) Eosinophils # (Manual) Nucleated RBC % Basophils # (Manual) PT INR APTT Heparin Anti-Xa Level ABG pH POC ABG pO2 ABG pO2 ABG HCO3 ABG O2 Saturation ABG Base Excess POC ABG pCO2 ABG Hemoglobin ABG Oxyhemoglobin ABG Sodium ABG Chloride ABG Glucose Oxyhemoglobin Sodium Potassium Chloride Carbon Dioxide BUN Creatinine Glucose POC Glucose 209 H 119 H Lactic Acid Calcium Phosphorus Magnesium AST ALT Lactate Dehydrogenase Total Bilirubin Direct Bilirubin CK-MB (CK-2) C-Reactive Protein NT-Pro-B Natriuret Pep Total Protein Albumin Arterial Blood Glucose Urine WBC (Auto) Urine Creatinine Digoxin 12/23/19 12/23/19 12/23/19 03:51 05:31 12:09 WBC RBC Hgb Hct MCHC RDW MCV MCH Lymph % (Auto) [place] % (Auto) [place] # Eos # Lymph # (Auto) [place] # (Auto) Eos # (Auto) Seg Neutrophils % Seg Neuts % (Manual) Baso # (Auto) Lymphocytes % (Manual) Monocytes % (Manual) Eosinophils % (Manual) Basophils % (Manual) Seg Neutrophils # Seg Neutrophils # Man Lymphocytes # (Manual) Monocytes # (Manual) Eosinophils # (Manual) Nucleated RBC % Basophils # (Manual) PT INR APTT Heparin Anti-Xa Level ABG pH POC ABG pO2 ABG pO2 ABG HCO3 ABG O2 Saturation ABG Base Excess POC ABG pCO2 ABG Hemoglobin ABG Oxyhemoglobin ABG Sodium ABG Chloride ABG Glucose Oxyhemoglobin Sodium Potassium Chloride 97.2 L Carbon Dioxide 31 H BUN 23 H Creatinine 0.6 L Glucose 153 H POC Glucose 149 H 144 H Lactic Acid Calcium Phosphorus Magnesium AST ALT Lactate Dehydrogenase Total Bilirubin Direct Bilirubin CK-MB (CK-2) C-Reactive Protein NT-Pro-B Natriuret Pep Total Protein Albumin Arterial Blood Glucose Urine WBC (Auto) Urine Creatinine Digoxin 12/23/19 12/23/19 12/23/19 15:30 17:49 23:31 WBC RBC Hgb Hct MCHC RDW MCV MCH Lymph % (Auto) [place] % (Auto) [place] # Eos # Lymph # (Auto) [place] # (Auto) Eos # (Auto) Seg Neutrophils % Seg Neuts % (Manual) Baso # (Auto) Lymphocytes % (Manual) Monocytes % (Manual) Eosinophils % (Manual) Basophils % (Manual) Seg Neutrophils # Seg Neutrophils # Man Lymphocytes # (Manual) Monocytes # (Manual) Eosinophils # (Manual) Nucleated RBC % Basophils # (Manual) PT INR APTT Heparin Anti-Xa Level 0.21 L ABG pH POC ABG pO2 ABG pO2 ABG HCO3 ABG O2 Saturation ABG Base Excess POC ABG pCO2 ABG Hemoglobin ABG Oxyhemoglobin ABG Sodium ABG Chloride ABG Glucose Oxyhemoglobin Sodium Potassium Chloride Carbon Dioxide BUN Creatinine Glucose POC Glucose 192 H 151 H Lactic Acid Calcium Phosphorus Magnesium AST ALT Lactate Dehydrogenase Total Bilirubin Direct Bilirubin CK-MB (CK-2) C-Reactive Protein NT-Pro-B Natriuret Pep Total Protein Albumin Arterial Blood Glucose Urine WBC (Auto) Urine Creatinine Digoxin 12/24/19 12/24/19 12/24/19 05:34 12:13 16:50 WBC RBC Hgb Hct MCHC RDW MCV MCH Lymph % (Auto) [place] % (Auto) [place] # Eos # Lymph # (Auto) [place] # (Auto) Eos # (Auto) Seg Neutrophils % Seg Neuts % (Manual) Baso # (Auto) Lymphocytes % (Manual) Monocytes % (Manual) Eosinophils % (Manual) Basophils % (Manual) Seg Neutrophils # Seg Neutrophils # Man Lymphocytes # (Manual) Monocytes # (Manual) Eosinophils # (Manual) Nucleated RBC % Basophils # (Manual) PT INR APTT Heparin Anti-Xa Level 0.16 L ABG pH POC ABG pO2 ABG pO2 ABG HCO3 ABG O2 Saturation ABG Base Excess POC ABG pCO2 ABG Hemoglobin ABG Oxyhemoglobin ABG Sodium ABG Chloride ABG Glucose Oxyhemoglobin Sodium Potassium Chloride Carbon Dioxide BUN Creatinine Glucose POC Glucose 145 H 124 H Lactic Acid Calcium Phosphorus Magnesium AST ALT Lactate Dehydrogenase Total Bilirubin Direct Bilirubin CK-MB (CK-2) C-Reactive Protein NT-Pro-B Natriuret Pep Total Protein Albumin Arterial Blood Glucose Urine WBC (Auto) Urine Creatinine Digoxin 12/24/19 12/25/19 12/25/19 17:53 00:14 04:18 WBC 12.9 H RBC 3.30 L Hgb 9.1 L Hct 28.8 L MCHC RDW 16.4 H MCV MCH Lymph % (Auto) [place] % (Auto) 7.8 H [place] # Eos # Lymph # (Auto) [place] # (Auto) 1.0 H Eos # (Auto) Seg Neutrophils % 75.5 H Seg Neuts % (Manual) Baso # (Auto) Lymphocytes % (Manual) Monocytes % (Manual) Eosinophils % (Manual) Basophils % (Manual) Seg Neutrophils # 9.7 H Seg Neutrophils # Man Lymphocytes # (Manual) Monocytes # (Manual) Eosinophils # (Manual) Nucleated RBC % Basophils # (Manual) PT INR APTT Heparin Anti-Xa Level ABG pH POC ABG pO2 ABG pO2 ABG HCO3 ABG O2 Saturation ABG Base Excess POC ABG pCO2 ABG Hemoglobin ABG Oxyhemoglobin ABG Sodium ABG Chloride ABG Glucose Oxyhemoglobin Sodium Potassium Chloride Carbon Dioxide BUN Creatinine Glucose POC Glucose 164 H 148 H Lactic Acid Calcium Phosphorus Magnesium AST ALT Lactate Dehydrogenase Total Bilirubin Direct Bilirubin CK-MB (CK-2) C-Reactive Protein NT-Pro-B Natriuret Pep Total Protein Albumin Arterial Blood Glucose Urine WBC (Auto) Urine Creatinine Digoxin 12/25/19 12/25/19 12/25/19 04:18 05:38 11:44 WBC RBC Hgb Hct MCHC RDW MCV MCH Lymph % (Auto) [place] % (Auto) [place] # Eos # Lymph # (Auto) [place] # (Auto) Eos # (Auto) Seg Neutrophils % Seg Neuts % (Manual) Baso # (Auto) Lymphocytes % (Manual) Monocytes % (Manual) Eosinophils % (Manual) Basophils % (Manual) Seg Neutrophils # Seg Neutrophils # Man Lymphocytes # (Manual) Monocytes # (Manual) Eosinophils # (Manual) Nucleated RBC % Basophils # (Manual) PT INR APTT Heparin Anti-Xa Level ABG pH POC ABG pO2 ABG pO2 ABG HCO3 ABG O2 Saturation ABG Base Excess POC ABG pCO2 ABG Hemoglobin ABG Oxyhemoglobin ABG Sodium ABG Chloride ABG Glucose Oxyhemoglobin Sodium Potassium Chloride Carbon Dioxide 33 H BUN 27 H Creatinine 0.6 L Glucose 132 H POC Glucose 152 H 166 H Lactic Acid Calcium Phosphorus Magnesium AST ALT Lactate Dehydrogenase Total Bilirubin Direct Bilirubin CK-MB (CK-2) C-Reactive Protein NT-Pro-B Natriuret Pep Total Protein Albumin Arterial Blood Glucose Urine WBC (Auto) Urine Creatinine Digoxin 12/25/19 12/26/19 12/26/19 18:29 00:17 00:18 WBC RBC Hgb Hct MCHC RDW MCV MCH Lymph % (Auto) [place] % (Auto) [place] # Eos # Lymph # (Auto) [place] # (Auto) Eos # (Auto) Seg Neutrophils % Seg Neuts % (Manual) Baso # (Auto) Lymphocytes % (Manual) Monocytes % (Manual) Eosinophils % (Manual) Basophils % (Manual) Seg Neutrophils # Seg Neutrophils # Man Lymphocytes # (Manual) Monocytes # (Manual) Eosinophils # (Manual) Nucleated RBC % Basophils # (Manual) PT INR APTT Heparin Anti-Xa Level ABG pH POC ABG pO2 ABG pO2 ABG HCO3 ABG O2 Saturation ABG Base Excess POC ABG pCO2 ABG Hemoglobin ABG Oxyhemoglobin ABG Sodium ABG Chloride ABG Glucose Oxyhemoglobin Sodium Potassium Chloride 97.8 L Carbon Dioxide BUN 25 H Creatinine 0.6 L Glucose 140 H POC Glucose 194 H 151 H Lactic Acid Calcium Phosphorus Magnesium AST ALT Lactate Dehydrogenase Total Bilirubin Direct Bilirubin CK-MB (CK-2) C-Reactive Protein NT-Pro-B Natriuret Pep Total Protein Albumin Arterial Blood Glucose Urine WBC (Auto) Urine Creatinine Digoxin 12/26/19 12/26/19 12/26/19 05:36 11:41 17:50 WBC RBC Hgb Hct MCHC RDW MCV MCH Lymph % (Auto) [place] % (Auto) [place] # Eos # Lymph # (Auto) [place] # (Auto) Eos # (Auto) Seg Neutrophils % Seg Neuts % (Manual) Baso # (Auto) Lymphocytes % (Manual) Monocytes % (Manual) Eosinophils % (Manual) Basophils % (Manual) Seg Neutrophils # Seg Neutrophils # Man Lymphocytes # (Manual) Monocytes # (Manual) Eosinophils # (Manual) Nucleated RBC % Basophils # (Manual) PT INR APTT Heparin Anti-Xa Level ABG pH POC ABG pO2 ABG pO2 ABG HCO3 ABG O2 Saturation ABG Base Excess POC ABG pCO2 ABG Hemoglobin ABG Oxyhemoglobin ABG Sodium ABG Chloride ABG Glucose Oxyhemoglobin Sodium Potassium Chloride Carbon Dioxide BUN Creatinine Glucose POC Glucose 156 H 148 H 139 H Lactic Acid Calcium Phosphorus Magnesium AST ALT Lactate Dehydrogenase Total Bilirubin Direct Bilirubin CK-MB (CK-2) C-Reactive Protein NT-Pro-B Natriuret Pep Total Protein Albumin Arterial Blood Glucose Urine WBC (Auto) Urine Creatinine Digoxin 12/26/19 12/27/19 12/27/19 23:19 05:34 12:02 WBC RBC Hgb Hct MCHC RDW MCV MCH Lymph % (Auto) [place] % (Auto) [place] # Eos # Lymph # (Auto) [place] # (Auto) Eos # (Auto) Seg Neutrophils % Seg Neuts % (Manual) Baso # (Auto) Lymphocytes % (Manual) Monocytes % (Manual) Eosinophils % (Manual) Basophils % (Manual) Seg Neutrophils # Seg Neutrophils # Man Lymphocytes # (Manual) Monocytes # (Manual) Eosinophils # (Manual) Nucleated RBC % Basophils # (Manual) PT INR APTT Heparin Anti-Xa Level ABG pH POC ABG pO2 ABG pO2 ABG HCO3 ABG O2 Saturation ABG Base Excess POC ABG pCO2 ABG Hemoglobin ABG Oxyhemoglobin ABG Sodium ABG Chloride ABG Glucose Oxyhemoglobin Sodium Potassium Chloride Carbon Dioxide BUN Creatinine Glucose POC Glucose 161 H 145 H 157 H Lactic Acid Calcium Phosphorus Magnesium AST ALT Lactate Dehydrogenase Total Bilirubin Direct Bilirubin CK-MB (CK-2) C-Reactive Protein NT-Pro-B Natriuret Pep Total Protein Albumin Arterial Blood Glucose Urine WBC (Auto) Urine Creatinine Digoxin 12/27/19 12/27/19 12/27/19 17:35 20:11 23:00 WBC RBC Hgb Hct MCHC RDW MCV MCH Lymph % (Auto) [place] % (Auto) [place] # Eos # Lymph # (Auto) [place] # (Auto) Eos # (Auto) Seg Neutrophils % Seg Neuts % (Manual) Baso # (Auto) Lymphocytes % (Manual) Monocytes % (Manual) Eosinophils % (Manual) Basophils % (Manual) Seg Neutrophils # Seg Neutrophils # Man Lymphocytes # (Manual) Monocytes # (Manual) Eosinophils # (Manual) Nucleated RBC % Basophils # (Manual) PT INR APTT Heparin Anti-Xa Level 0.19 L ABG pH POC ABG pO2 ABG pO2 ABG HCO3 ABG O2 Saturation ABG Base Excess POC ABG pCO2 ABG Hemoglobin ABG Oxyhemoglobin ABG Sodium ABG Chloride ABG Glucose Oxyhemoglobin Sodium Potassium Chloride Carbon Dioxide BUN Creatinine Glucose POC Glucose 158 H 155 H Lactic Acid Calcium Phosphorus Magnesium AST ALT Lactate Dehydrogenase Total Bilirubin Direct Bilirubin CK-MB (CK-2) C-Reactive Protein NT-Pro-B Natriuret Pep Total Protein Albumin Arterial Blood Glucose Urine WBC (Auto) Urine Creatinine Digoxin 12/27/19 12/28/19 12/28/19 23:45 02:41 02:41 WBC 13.0 H RBC 3.48 L Hgb 9.5 L Hct 30.6 L MCHC 31 L RDW 16.6 H MCV MCH 27 L Lymph % (Auto) 13.0 L [place] % (Auto) 8.0 H [place] # Eos # Lymph # (Auto) [place] # (Auto) 1.0 H Eos # (Auto) Seg Neutrophils % 76.3 H Seg Neuts % (Manual) Baso # (Auto) Lymphocytes % (Manual) Monocytes % (Manual) Eosinophils % (Manual) Basophils % (Manual) Seg Neutrophils # 9.9 H Seg Neutrophils # Man Lymphocytes # (Manual) Monocytes # (Manual) Eosinophils # (Manual) Nucleated RBC % Basophils # (Manual) PT INR APTT Heparin Anti-Xa Level ABG pH POC ABG pO2 ABG pO2 ABG HCO3 ABG O2 Saturation ABG Base Excess POC ABG pCO2 ABG Hemoglobin ABG Oxyhemoglobin ABG Sodium ABG Chloride ABG Glucose Oxyhemoglobin Sodium Potassium Chloride Carbon Dioxide BUN 22 H Creatinine 0.6 L Glucose 101 H POC Glucose 130 H Lactic Acid Calcium Phosphorus Magnesium AST ALT Lactate Dehydrogenase Total Bilirubin Direct Bilirubin CK-MB (CK-2) C-Reactive Protein NT-Pro-B Natriuret Pep Total Protein Albumin Arterial Blood Glucose Urine WBC (Auto) Urine Creatinine Digoxin 12/28/19 12/28/19 12/28/19 06:00 12:34 18:13 WBC RBC Hgb Hct MCHC RDW MCV MCH Lymph % (Auto) [place] % (Auto) [place] # Eos # Lymph # (Auto) [place] # (Auto) Eos # (Auto) Seg Neutrophils % Seg Neuts % (Manual) Baso # (Auto) Lymphocytes % (Manual) Monocytes % (Manual) Eosinophils % (Manual) Basophils % (Manual) Seg Neutrophils # Seg Neutrophils # Man Lymphocytes # (Manual) Monocytes # (Manual) Eosinophils # (Manual) Nucleated RBC % Basophils # (Manual) PT INR APTT Heparin Anti-Xa Level ABG pH POC ABG pO2 ABG pO2 ABG HCO3 ABG O2 Saturation ABG Base Excess POC ABG pCO2 ABG Hemoglobin ABG Oxyhemoglobin ABG Sodium ABG Chloride ABG Glucose Oxyhemoglobin Sodium Potassium Chloride Carbon Dioxide BUN Creatinine Glucose POC Glucose 150 H 161 H 128 H Lactic Acid Calcium Phosphorus Magnesium AST ALT Lactate Dehydrogenase Total Bilirubin Direct Bilirubin CK-MB (CK-2) C-Reactive Protein NT-Pro-B Natriuret Pep Total Protein Albumin Arterial Blood Glucose Urine WBC (Auto) Urine Creatinine Digoxin 12/28/19 12/29/19 12/29/19 23:36 05:21 11:40 WBC RBC Hgb Hct MCHC RDW MCV MCH Lymph % (Auto) [place] % (Auto) [place] # Eos # Lymph # (Auto) [place] # (Auto) Eos # (Auto) Seg Neutrophils % Seg Neuts % (Manual) Baso # (Auto) Lymphocytes % (Manual) Monocytes % (Manual) Eosinophils % (Manual) Basophils % (Manual) Seg Neutrophils # Seg Neutrophils # Man Lymphocytes # (Manual) Monocytes # (Manual) Eosinophils # (Manual) Nucleated RBC % Basophils # (Manual) PT INR APTT Heparin Anti-Xa Level ABG pH POC ABG pO2 ABG pO2 ABG HCO3 ABG O2 Saturation ABG Base Excess POC ABG pCO2 ABG Hemoglobin ABG Oxyhemoglobin ABG Sodium ABG Chloride ABG Glucose Oxyhemoglobin Sodium Potassium Chloride Carbon Dioxide BUN Creatinine Glucose POC Glucose 137 H 136 H 166 H Lactic Acid Calcium Phosphorus Magnesium AST ALT Lactate Dehydrogenase Total Bilirubin Direct Bilirubin CK-MB (CK-2) C-Reactive Protein NT-Pro-B Natriuret Pep Total Protein Albumin Arterial Blood Glucose Urine WBC (Auto) Urine Creatinine Digoxin 12/29/19 12/29/19 12/29/19 17:23 19:21 23:38 WBC RBC Hgb Hct MCHC RDW MCV MCH Lymph % (Auto) [place] % (Auto) [place] # Eos # Lymph # (Auto) [place] # (Auto) Eos # (Auto) Seg Neutrophils % Seg Neuts % (Manual) Baso # (Auto) Lymphocytes % (Manual) Monocytes % (Manual) Eosinophils % (Manual) Basophils % (Manual) Seg Neutrophils # Seg Neutrophils # Man Lymphocytes # (Manual) Monocytes # (Manual) Eosinophils # (Manual) Nucleated RBC % Basophils # (Manual) PT INR APTT Heparin Anti-Xa Level 0.20 L ABG pH POC ABG pO2 ABG pO2 ABG HCO3 ABG O2 Saturation ABG Base Excess POC ABG pCO2 ABG Hemoglobin ABG Oxyhemoglobin ABG Sodium ABG Chloride ABG Glucose Oxyhemoglobin Sodium Potassium Chloride Carbon Dioxide BUN Creatinine Glucose POC Glucose 144 H 141 H Lactic Acid Calcium Phosphorus Magnesium AST ALT Lactate Dehydrogenase Total Bilirubin Direct Bilirubin CK-MB (CK-2) C-Reactive Protein NT-Pro-B Natriuret Pep Total Protein Albumin Arterial Blood Glucose Urine WBC (Auto) Urine Creatinine Digoxin 12/30/19 12/30/19 12/30/19 03:58 03:58 04:59 WBC RBC 3.54 L Hgb 9.8 L Hct 30.7 L MCHC RDW 16.8 H MCV MCH Lymph % (Auto) [place] % (Auto) [place] # Eos # Lymph # (Auto) [place] # (Auto) Eos # (Auto) Seg Neutrophils % Seg Neuts % (Manual) Baso # (Auto) Lymphocytes % (Manual) Monocytes % (Manual) Eosinophils % (Manual) Basophils % (Manual) Seg Neutrophils # Seg Neutrophils # Man Lymphocytes # (Manual) Monocytes # (Manual) Eosinophils # (Manual) Nucleated RBC % Basophils # (Manual) PT INR APTT Heparin Anti-Xa Level ABG pH POC ABG pO2 ABG pO2 ABG HCO3 29.8 H ABG O2 Saturation ABG Base Excess 4.8 H POC ABG pCO2 ABG Hemoglobin 11.2 L ABG Oxyhemoglobin ABG Sodium ABG Chloride ABG Glucose Oxyhemoglobin 93.8 L Sodium Potassium Chloride 97.8 L Carbon Dioxide BUN 26 H Creatinine Glucose 168 H POC Glucose Lactic Acid Calcium Phosphorus Magnesium AST ALT Lactate Dehydrogenase Total Bilirubin Direct Bilirubin CK-MB (CK-2) C-Reactive Protein NT-Pro-B Natriuret Pep Total Protein Albumin Arterial Blood Glucose Urine WBC (Auto) Urine Creatinine Digoxin 12/30/19 12/30/19 12/30/19 05:45 11:34 17:28 WBC RBC Hgb Hct MCHC RDW MCV MCH Lymph % (Auto) [place] % (Auto) [place] # Eos # Lymph # (Auto) [place] # (Auto) Eos # (Auto) Seg Neutrophils % Seg Neuts % (Manual) Baso # (Auto) Lymphocytes % (Manual) Monocytes % (Manual) Eosinophils % (Manual) Basophils % (Manual) Seg Neutrophils # Seg Neutrophils # Man Lymphocytes # (Manual) Monocytes # (Manual) Eosinophils # (Manual) Nucleated RBC % Basophils # (Manual) PT INR APTT Heparin Anti-Xa Level ABG pH POC ABG pO2 ABG pO2 ABG HCO3 ABG O2 Saturation ABG Base Excess POC ABG pCO2 ABG Hemoglobin ABG Oxyhemoglobin ABG Sodium ABG Chloride ABG Glucose Oxyhemoglobin Sodium Potassium Chloride Carbon Dioxide BUN Creatinine Glucose POC Glucose 163 H 180 H 150 H Lactic Acid Calcium Phosphorus Magnesium AST ALT Lactate Dehydrogenase Total Bilirubin Direct Bilirubin CK-MB (CK-2) C-Reactive Protein NT-Pro-B Natriuret Pep Total Protein Albumin Arterial Blood Glucose Urine WBC (Auto) Urine Creatinine Digoxin 12/30/19 12/31/19 12/31/19 23:43 04:55 05:07 WBC RBC Hgb Hct MCHC RDW MCV MCH Lymph % (Auto) [place] % (Auto) [place] # Eos # Lymph # (Auto) [place] # (Auto) Eos # (Auto) Seg Neutrophils % Seg Neuts % (Manual) Baso # (Auto) Lymphocytes % (Manual) Monocytes % (Manual) Eosinophils % (Manual) Basophils % (Manual) Seg Neutrophils # Seg Neutrophils # Man Lymphocytes # (Manual) Monocytes # (Manual) Eosinophils # (Manual) Nucleated RBC % Basophils # (Manual) PT INR APTT Heparin Anti-Xa Level ABG pH POC ABG pO2 ABG pO2 ABG HCO3 ABG O2 Saturation ABG Base Excess POC ABG pCO2 ABG Hemoglobin ABG Oxyhemoglobin ABG Sodium ABG Chloride ABG Glucose Oxyhemoglobin Sodium Potassium 5.6 H D Chloride Carbon Dioxide BUN 33 H Creatinine Glucose 131 H POC Glucose 142 H 134 H Lactic Acid Calcium Phosphorus Magnesium AST ALT Lactate Dehydrogenase Total Bilirubin Direct Bilirubin CK-MB (CK-2) C-Reactive Protein NT-Pro-B Natriuret Pep Total Protein Albumin Arterial Blood Glucose Urine WBC (Auto) Urine Creatinine Digoxin 12/31/19 12/31/19 12/31/19 11:30 17:19 17:36 WBC RBC Hgb Hct MCHC RDW MCV MCH Lymph % (Auto) [place] % (Auto) [place] # Eos # Lymph # (Auto) [place] # (Auto) Eos # (Auto) Seg Neutrophils % Seg Neuts % (Manual) Baso # (Auto) Lymphocytes % (Manual) Monocytes % (Manual) Eosinophils % (Manual) Basophils % (Manual) Seg Neutrophils # Seg Neutrophils # Man Lymphocytes # (Manual) Monocytes # (Manual) Eosinophils # (Manual) Nucleated RBC % Basophils # (Manual) PT INR APTT Heparin Anti-Xa Level ABG pH POC ABG pO2 ABG pO2 ABG HCO3 ABG O2 Saturation ABG Base Excess POC ABG pCO2 ABG Hemoglobin ABG Oxyhemoglobin ABG Sodium ABG Chloride ABG Glucose Oxyhemoglobin Sodium Potassium Chloride Carbon Dioxide BUN 35 H Creatinine Glucose 156 H POC Glucose 158 H 181 H Lactic Acid Calcium Phosphorus Magnesium AST ALT Lactate Dehydrogenase Total Bilirubin Direct Bilirubin CK-MB (CK-2) C-Reactive Protein NT-Pro-B Natriuret Pep Total Protein Albumin Arterial Blood Glucose Urine WBC (Auto) Urine Creatinine Digoxin 12/31/19 12/31/19 12/31/19 18:16 19:41 21:53 WBC RBC Hgb Hct MCHC RDW MCV MCH Lymph % (Auto) [place] % (Auto) [place] # Eos # Lymph # (Auto) [place] # (Auto) Eos # (Auto) Seg Neutrophils % Seg Neuts % (Manual) Baso # (Auto) Lymphocytes % (Manual) Monocytes % (Manual) Eosinophils % (Manual) Basophils % (Manual) Seg Neutrophils # Seg Neutrophils # Man Lymphocytes # (Manual) Monocytes # (Manual) Eosinophils # (Manual) Nucleated RBC % Basophils # (Manual) PT INR APTT Heparin Anti-Xa Level 0.20 L ABG pH POC ABG pO2 ABG pO2 ABG HCO3 ABG O2 Saturation ABG Base Excess POC ABG pCO2 ABG Hemoglobin ABG Oxyhemoglobin ABG Sodium ABG Chloride ABG Glucose Oxyhemoglobin Sodium Potassium Chloride Carbon Dioxide BUN 34 H Creatinine Glucose 169 H POC Glucose 141 H Lactic Acid Calcium Phosphorus Magnesium AST ALT Lactate Dehydrogenase Total Bilirubin Direct Bilirubin CK-MB (CK-2) C-Reactive Protein NT-Pro-B Natriuret Pep Total Protein Albumin Arterial Blood Glucose Urine WBC (Auto) Urine Creatinine Digoxin 12/31/19 01/01/20 01/01/20 23:51 05:17 10:40 WBC RBC Hgb Hct MCHC RDW MCV MCH Lymph % (Auto) [place] % (Auto) [place] # Eos # Lymph # (Auto) [place] # (Auto) Eos # (Auto) Seg Neutrophils % Seg Neuts % (Manual) Baso # (Auto) Lymphocytes % (Manual) Monocytes % (Manual) Eosinophils % (Manual) Basophils % (Manual) Seg Neutrophils # Seg Neutrophils # Man Lymphocytes # (Manual) Monocytes # (Manual) Eosinophils # (Manual) Nucleated RBC % Basophils # (Manual) PT INR APTT Heparin Anti-Xa Level ABG pH POC ABG pO2 ABG pO2 ABG HCO3 ABG O2 Saturation ABG Base Excess POC ABG pCO2 ABG Hemoglobin ABG Oxyhemoglobin ABG Sodium ABG Chloride ABG Glucose Oxyhemoglobin Sodium Potassium Chloride Carbon Dioxide BUN 31 H Creatinine 0.7 L Glucose 137 H POC Glucose 131 H 155 H Lactic Acid Calcium Phosphorus Magnesium AST 73 H ALT 97 H Lactate Dehydrogenase Total Bilirubin Direct Bilirubin CK-MB (CK-2) C-Reactive Protein NT-Pro-B Natriuret Pep 3866 H Total Protein Albumin 2.8 L Arterial Blood Glucose Urine WBC (Auto) Urine Creatinine Digoxin 01/01/20 01/01/20 01/01/20 12:26 15:33 17:53 WBC 14.3 H RBC 3.35 L Hgb 9.1 L Hct 28.8 L MCHC RDW 17.0 H MCV MCH 27 L Lymph % (Auto) 7.0 L [place] % (Auto) 7.6 H [place] # Eos # Lymph # (Auto) 1.0 L [place] # (Auto) 1.1 H Eos # (Auto) Seg Neutrophils % 83.3 H Seg Neuts % (Manual) Baso # (Auto) Lymphocytes % (Manual) Monocytes % (Manual) Eosinophils % (Manual) Basophils % (Manual) Seg Neutrophils # 12.0 H Seg Neutrophils # Man Lymphocytes # (Manual) Monocytes # (Manual) Eosinophils # (Manual) Nucleated RBC % Basophils # (Manual) PT INR APTT Heparin Anti-Xa Level ABG pH POC ABG pO2 ABG pO2 ABG HCO3 ABG O2 Saturation ABG Base Excess POC ABG pCO2 ABG Hemoglobin ABG Oxyhemoglobin ABG Sodium ABG Chloride ABG Glucose Oxyhemoglobin Sodium Potassium Chloride Carbon Dioxide BUN Creatinine Glucose POC Glucose 128 H 128 H Lactic Acid Calcium Phosphorus Magnesium AST ALT Lactate Dehydrogenase Total Bilirubin Direct Bilirubin CK-MB (CK-2) C-Reactive Protein NT-Pro-B Natriuret Pep Total Protein Albumin Arterial Blood Glucose Urine WBC (Auto) Urine Creatinine Digoxin 01/01/20 01/02/20 01/02/20 23:04 05:39 07:00 WBC RBC Hgb Hct MCHC RDW MCV MCH Lymph % (Auto) [place] % (Auto) [place] # Eos # Lymph # (Auto) [place] # (Auto) Eos # (Auto) Seg Neutrophils % Seg Neuts % (Manual) Baso # (Auto) Lymphocytes % (Manual) Monocytes % (Manual) Eosinophils % (Manual) Basophils % (Manual) Seg Neutrophils # Seg Neutrophils # Man Lymphocytes # (Manual) Monocytes # (Manual) Eosinophils # (Manual) Nucleated RBC % Basophils # (Manual) PT INR APTT Heparin Anti-Xa Level 0.13 L ABG pH POC ABG pO2 ABG pO2 ABG HCO3 ABG O2 Saturation ABG Base Excess POC ABG pCO2 ABG Hemoglobin ABG Oxyhemoglobin ABG Sodium ABG Chloride ABG Glucose Oxyhemoglobin Sodium Potassium Chloride Carbon Dioxide BUN Creatinine Glucose POC Glucose 120 H 169 H Lactic Acid Calcium Phosphorus Magnesium AST ALT Lactate Dehydrogenase Total Bilirubin Direct Bilirubin CK-MB (CK-2) C-Reactive Protein NT-Pro-B Natriuret Pep Total Protein Albumin Arterial Blood Glucose Urine WBC (Auto) Urine Creatinine Digoxin 01/02/20 01/02/20 01/02/20 12:15 14:06 17:58 WBC RBC Hgb Hct MCHC RDW MCV MCH Lymph % (Auto) [place] % (Auto) [place] # Eos # Lymph # (Auto) [place] # (Auto) Eos # (Auto) Seg Neutrophils % Seg Neuts % (Manual) Baso # (Auto) Lymphocytes % (Manual) Monocytes % (Manual) Eosinophils % (Manual) Basophils % (Manual) Seg Neutrophils # Seg Neutrophils # Man Lymphocytes # (Manual) Monocytes # (Manual) Eosinophils # (Manual) Nucleated RBC % Basophils # (Manual) PT INR APTT Heparin Anti-Xa Level < 0.10 L ABG pH POC ABG pO2 ABG pO2 ABG HCO3 ABG O2 Saturation ABG Base Excess POC ABG pCO2 ABG Hemoglobin ABG Oxyhemoglobin ABG Sodium ABG Chloride ABG Glucose Oxyhemoglobin Sodium Potassium Chloride Carbon Dioxide BUN Creatinine Glucose POC Glucose 190 H 198 H Lactic Acid Calcium Phosphorus Magnesium AST ALT Lactate Dehydrogenase Total Bilirubin Direct Bilirubin CK-MB (CK-2) C-Reactive Protein NT-Pro-B Natriuret Pep Total Protein Albumin Arterial Blood Glucose Urine WBC (Auto) Urine Creatinine Digoxin 01/02/20 01/02/20 01/03/20 21:43 23:33 05:42 WBC RBC Hgb Hct MCHC RDW MCV MCH Lymph % (Auto) [place] % (Auto) [place] # Eos # Lymph # (Auto) [place] # (Auto) Eos # (Auto) Seg Neutrophils % Seg Neuts % (Manual) Baso # (Auto) Lymphocytes % (Manual) Monocytes % (Manual) Eosinophils % (Manual) Basophils % (Manual) Seg Neutrophils # Seg Neutrophils # Man Lymphocytes # (Manual) Monocytes # (Manual) Eosinophils # (Manual) Nucleated RBC % Basophils # (Manual) PT INR APTT Heparin Anti-Xa Level 0.10 L ABG pH POC ABG pO2 ABG pO2 ABG HCO3 ABG O2 Saturation ABG Base Excess POC ABG pCO2 ABG Hemoglobin ABG Oxyhemoglobin ABG Sodium ABG Chloride ABG Glucose Oxyhemoglobin Sodium Potassium Chloride Carbon Dioxide BUN Creatinine Glucose POC Glucose 180 H 163 H Lactic Acid Calcium Phosphorus Magnesium AST ALT Lactate Dehydrogenase Total Bilirubin Direct Bilirubin CK-MB (CK-2) C-Reactive Protein NT-Pro-B Natriuret Pep Total Protein Albumin Arterial Blood Glucose Urine WBC (Auto) Urine Creatinine Digoxin 01/03/20 01/03/20 01/03/20 06:50 07:25 07:45 WBC 12.1 H RBC 3.35 L Hgb 9.0 L Hct 28.9 L MCHC 31 L RDW 16.6 H MCV MCH 27 L Lymph % (Auto) 13.0 L [place] % (Auto) 8.6 H [place] # Eos # Lymph # (Auto) [place] # (Auto) 1.0 H Eos # (Auto) Seg Neutrophils % 75.9 H Seg Neuts % (Manual) Baso # (Auto) Lymphocytes % (Manual) Monocytes % (Manual) Eosinophils % (Manual) Basophils % (Manual) Seg Neutrophils # 9.2 H Seg Neutrophils # Man Lymphocytes # (Manual) Monocytes # (Manual) Eosinophils # (Manual) Nucleated RBC % Basophils # (Manual) PT INR APTT Heparin Anti-Xa Level 0.29 L ABG pH POC ABG pO2 ABG pO2 ABG HCO3 ABG O2 Saturation ABG Base Excess POC ABG pCO2 ABG Hemoglobin ABG Oxyhemoglobin ABG Sodium ABG Chloride ABG Glucose Oxyhemoglobin Sodium Potassium 3.3 L D Chloride Carbon Dioxide 35 H D BUN 23 H Creatinine 0.6 L Glucose 149 H POC Glucose Lactic Acid Calcium Phosphorus Magnesium AST ALT 88 H Lactate Dehydrogenase Total Bilirubin Direct Bilirubin CK-MB (CK-2) C-Reactive Protein NT-Pro-B Natriuret Pep Total Protein 6.2 L Albumin 2.9 L Arterial Blood Glucose Urine WBC (Auto) Urine Creatinine Digoxin 01/03/20 01/03/20 01/03/20 12:05 17:42 18:30 WBC RBC Hgb Hct MCHC RDW MCV MCH Lymph % (Auto) [place] % (Auto) [place] # Eos # Lymph # (Auto) [place] # (Auto) Eos # (Auto) Seg Neutrophils % Seg Neuts % (Manual) Baso # (Auto) Lymphocytes % (Manual) Monocytes % (Manual) Eosinophils % (Manual) Basophils % (Manual) Seg Neutrophils # Seg Neutrophils # Man Lymphocytes # (Manual) Monocytes # (Manual) Eosinophils # (Manual) Nucleated RBC % Basophils # (Manual) PT INR APTT Heparin Anti-Xa Level ABG pH POC ABG pO2 ABG pO2 70.7 L ABG HCO3 36.1 H ABG O2 Saturation 94.4 L ABG Base Excess 10.0 H POC ABG pCO2 ABG Hemoglobin 9.7 L ABG Oxyhemoglobin ABG Sodium ABG Chloride ABG Glucose Oxyhemoglobin 91.8 L Sodium Potassium Chloride Carbon Dioxide BUN Creatinine Glucose POC Glucose 128 H 132 H Lactic Acid Calcium Phosphorus Magnesium AST ALT Lactate Dehydrogenase Total Bilirubin Direct Bilirubin CK-MB (CK-2) C-Reactive Protein NT-Pro-B Natriuret Pep Total Protein Albumin Arterial Blood Glucose Urine WBC (Auto) Urine Creatinine Digoxin 01/04/20 01/04/20 01/04/20 00:10 04:26 05:23 WBC RBC Hgb Hct MCHC RDW MCV MCH Lymph % (Auto) [place] % (Auto) [place] # Eos # Lymph # (Auto) [place] # (Auto) Eos # (Auto) Seg Neutrophils % Seg Neuts % (Manual) Baso # (Auto) Lymphocytes % (Manual) Monocytes % (Manual) Eosinophils % (Manual) Basophils % (Manual) Seg Neutrophils # Seg Neutrophils # Man Lymphocytes # (Manual) Monocytes # (Manual) Eosinophils # (Manual) Nucleated RBC % Basophils # (Manual) PT INR APTT Heparin Anti-Xa Level 0.16 L ABG pH POC ABG pO2 ABG pO2 ABG HCO3 ABG O2 Saturation ABG Base Excess POC ABG pCO2 ABG Hemoglobin ABG Oxyhemoglobin ABG Sodium ABG Chloride ABG Glucose Oxyhemoglobin Sodium Potassium Chloride Carbon Dioxide BUN Creatinine Glucose POC Glucose 121 H 119 H Lactic Acid Calcium Phosphorus Magnesium AST ALT Lactate Dehydrogenase Total Bilirubin Direct Bilirubin CK-MB (CK-2) C-Reactive Protein NT-Pro-B Natriuret Pep Total Protein Albumin Arterial Blood Glucose Urine WBC (Auto) Urine Creatinine Digoxin 01/04/20 01/04/20 01/04/20 09:50 09:50 12:18 WBC 15.4 H RBC 3.30 L Hgb 8.7 L Hct 28.2 L MCHC 31 L RDW 17.0 H MCV MCH 26 L Lymph % (Auto) [place] % (Auto) 7.6 H [place] # Eos # Lymph # (Auto) [place] # (Auto) 1.2 H Eos # (Auto) Seg Neutrophils % 75.4 H Seg Neuts % (Manual) Baso # (Auto) Lymphocytes % (Manual) Monocytes % (Manual) Eosinophils % (Manual) Basophils % (Manual) Seg Neutrophils # 11.6 H Seg Neutrophils # Man Lymphocytes # (Manual) Monocytes # (Manual) Eosinophils # (Manual) Nucleated RBC % Basophils # (Manual) PT INR APTT Heparin Anti-Xa Level ABG pH POC ABG pO2 ABG pO2 ABG HCO3 ABG O2 Saturation ABG Base Excess POC ABG pCO2 ABG Hemoglobin ABG Oxyhemoglobin ABG Sodium ABG Chloride ABG Glucose Oxyhemoglobin Sodium 148 H Potassium 3.5 L Chloride Carbon Dioxide 32 H BUN Creatinine 0.6 L Glucose 114 H POC Glucose 111 H Lactic Acid Calcium Phosphorus Magnesium AST ALT 59 H Lactate Dehydrogenase Total Bilirubin Direct Bilirubin CK-MB (CK-2) C-Reactive Protein NT-Pro-B Natriuret Pep Total Protein Albumin 2.6 L Arterial Blood Glucose Urine WBC (Auto) Urine Creatinine Digoxin 01/05/20 01/05/20 01/05/20 04:05 04:05 05:19 WBC 11.7 H RBC 3.50 L Hgb 9.3 L Hct 29.9 L MCHC 31 L RDW 16.6 H MCV MCH 27 L Lymph % (Auto) 13.1 L [place] % (Auto) 9.7 H [place] # Eos # Lymph # (Auto) [place] # (Auto) 1.1 H Eos # (Auto) Seg Neutrophils % 74.0 H Seg Neuts % (Manual) Baso # (Auto) Lymphocytes % (Manual) Monocytes % (Manual) Eosinophils % (Manual) Basophils % (Manual) Seg Neutrophils # 8.6 H Seg Neutrophils # Man Lymphocytes # (Manual) Monocytes # (Manual) Eosinophils # (Manual) Nucleated RBC % Basophils # (Manual) PT INR APTT Heparin Anti-Xa Level ABG pH POC ABG pO2 ABG pO2 ABG HCO3 ABG O2 Saturation ABG Base Excess POC ABG pCO2 ABG Hemoglobin ABG Oxyhemoglobin ABG Sodium ABG Chloride ABG Glucose Oxyhemoglobin Sodium 151 H Potassium Chloride Carbon Dioxide 34 H BUN Creatinine 0.7 L Glucose POC Glucose 112 H Lactic Acid Calcium Phosphorus Magnesium AST ALT 59 H Lactate Dehydrogenase Total Bilirubin Direct Bilirubin CK-MB (CK-2) C-Reactive Protein NT-Pro-B Natriuret Pep Total Protein 5.8 L Albumin 2.6 L Arterial Blood Glucose Urine WBC (Auto) Urine Creatinine Digoxin 01/05/20 01/06/20 01/06/20 16:04 00:23 04:44 WBC RBC 3.36 L Hgb 8.9 L Hct 28.7 L MCHC 31 L RDW 16.9 H MCV MCH 26 L Lymph % (Auto) [place] % (Auto) 9.4 H [place] # Eos # Lymph # (Auto) [place] # (Auto) Eos # (Auto) Seg Neutrophils % Seg Neuts % (Manual) Baso # (Auto) Lymphocytes % (Manual) Monocytes % (Manual) Eosinophils % (Manual) Basophils % (Manual) Seg Neutrophils # Seg Neutrophils # Man Lymphocytes # (Manual) Monocytes # (Manual) Eosinophils # (Manual) Nucleated RBC % Basophils # (Manual) PT INR APTT Heparin Anti-Xa Level ABG pH POC ABG pO2 ABG pO2 ABG HCO3 ABG O2 Saturation ABG Base Excess POC ABG pCO2 ABG Hemoglobin ABG Oxyhemoglobin ABG Sodium ABG Chloride ABG Glucose Oxyhemoglobin Sodium 151 H Potassium 3.2 L Chloride Carbon Dioxide 34 H BUN Creatinine 0.6 L Glucose POC Glucose 107 H Lactic Acid Calcium Phosphorus Magnesium AST ALT Lactate Dehydrogenase Total Bilirubin Direct Bilirubin CK-MB (CK-2) C-Reactive Protein NT-Pro-B Natriuret Pep Total Protein Albumin Arterial Blood Glucose Urine WBC (Auto) Urine Creatinine Digoxin 01/06/20 01/06/20 01/06/20 04:44 05:33 12:04 WBC RBC Hgb Hct MCHC RDW MCV MCH Lymph % (Auto) [place] % (Auto) [place] # Eos # Lymph # (Auto) [place] # (Auto) Eos # (Auto) Seg Neutrophils % Seg Neuts % (Manual) Baso # (Auto) Lymphocytes % (Manual) Monocytes % (Manual) Eosinophils % (Manual) Basophils % (Manual) Seg Neutrophils # Seg Neutrophils # Man Lymphocytes # (Manual) Monocytes # (Manual) Eosinophils # (Manual) Nucleated RBC % Basophils # (Manual) PT INR APTT Heparin Anti-Xa Level ABG pH POC ABG pO2 ABG pO2 ABG HCO3 ABG O2 Saturation ABG Base Excess POC ABG pCO2 ABG Hemoglobin ABG Oxyhemoglobin ABG Sodium ABG Chloride ABG Glucose Oxyhemoglobin Sodium 151 H Potassium 3.4 L Chloride Carbon Dioxide 33 H BUN Creatinine 0.6 L Glucose 118 H POC Glucose 118 H 123 H Lactic Acid Calcium Phosphorus Magnesium AST ALT Lactate Dehydrogenase Total Bilirubin Direct Bilirubin CK-MB (CK-2) C-Reactive Protein NT-Pro-B Natriuret Pep Total Protein 6.2 L Albumin 2.6 L Arterial Blood Glucose Urine WBC (Auto) Urine Creatinine Digoxin 01/06/20 01/07/20 01/07/20 17:54 00:06 04:10 WBC RBC 3.42 L Hgb 8.9 L Hct 29.0 L MCHC 31 L RDW 17.1 H MCV MCH 26 L Lymph % (Auto) [place] % (Auto) 8.4 H [place] # Eos # Lymph # (Auto) [place] # (Auto) Eos # (Auto) Seg Neutrophils % Seg Neuts % (Manual) Baso # (Auto) Lymphocytes % (Manual) Monocytes % (Manual) Eosinophils % (Manual) Basophils % (Manual) Seg Neutrophils # Seg Neutrophils # Man Lymphocytes # (Manual) Monocytes # (Manual) Eosinophils # (Manual) Nucleated RBC % Basophils # (Manual) PT INR APTT Heparin Anti-Xa Level ABG pH POC ABG pO2 ABG pO2 ABG HCO3 ABG O2 Saturation ABG Base Excess POC ABG pCO2 ABG Hemoglobin ABG Oxyhemoglobin ABG Sodium ABG Chloride ABG Glucose Oxyhemoglobin Sodium Potassium Chloride Carbon Dioxide BUN Creatinine Glucose POC Glucose 112 H 126 H Lactic Acid Calcium Phosphorus Magnesium AST ALT Lactate Dehydrogenase Total Bilirubin Direct Bilirubin CK-MB (CK-2) C-Reactive Protein NT-Pro-B Natriuret Pep Total Protein Albumin Arterial Blood Glucose Urine WBC (Auto) Urine Creatinine Digoxin 01/07/20 01/07/20 01/07/20 04:10 05:59 12:27 WBC RBC Hgb Hct MCHC RDW MCV MCH Lymph % (Auto) [place] % (Auto) [place] # Eos # Lymph # (Auto) [place] # (Auto) Eos # (Auto) Seg Neutrophils % Seg Neuts % (Manual) Baso # (Auto) Lymphocytes % (Manual) Monocytes % (Manual) Eosinophils % (Manual) Basophils % (Manual) Seg Neutrophils # Seg Neutrophils # Man Lymphocytes # (Manual) Monocytes # (Manual) Eosinophils # (Manual) Nucleated RBC % Basophils # (Manual) PT INR APTT Heparin Anti-Xa Level ABG pH POC ABG pO2 ABG pO2 ABG HCO3 ABG O2 Saturation ABG Base Excess POC ABG pCO2 ABG Hemoglobin ABG Oxyhemoglobin ABG Sodium ABG Chloride ABG Glucose Oxyhemoglobin Sodium 153 H Potassium 3.5 L Chloride Carbon Dioxide 34 H BUN Creatinine 0.6 L Glucose 121 H POC Glucose 121 H 126 H Lactic Acid Calcium Phosphorus Magnesium AST ALT Lactate Dehydrogenase Total Bilirubin Direct Bilirubin CK-MB (CK-2) C-Reactive Protein NT-Pro-B Natriuret Pep Total Protein 5.9 L Albumin 2.4 L Arterial Blood Glucose Urine WBC (Auto) Urine Creatinine Digoxin 01/07/20 01/08/20 01/08/20 18:12 00:03 05:41 WBC RBC Hgb Hct MCHC RDW MCV MCH Lymph % (Auto) [place] % (Auto) [place] # Eos # Lymph # (Auto) [place] # (Auto) Eos # (Auto) Seg Neutrophils % Seg Neuts % (Manual) Baso # (Auto) Lymphocytes % (Manual) Monocytes % (Manual) Eosinophils % (Manual) Basophils % (Manual) Seg Neutrophils # Seg Neutrophils # Man Lymphocytes # (Manual) Monocytes # (Manual) Eosinophils # (Manual) Nucleated RBC % Basophils # (Manual) PT INR APTT Heparin Anti-Xa Level ABG pH POC ABG pO2 ABG pO2 ABG HCO3 ABG O2 Saturation ABG Base Excess POC ABG pCO2 ABG Hemoglobin ABG Oxyhemoglobin ABG Sodium ABG Chloride ABG Glucose Oxyhemoglobin Sodium Potassium Chloride Carbon Dioxide BUN Creatinine Glucose POC Glucose 124 H 130 H 138 H Lactic Acid Calcium Phosphorus Magnesium AST ALT Lactate Dehydrogenase Total Bilirubin Direct Bilirubin CK-MB (CK-2) C-Reactive Protein NT-Pro-B Natriuret Pep Total Protein Albumin Arterial Blood Glucose Urine WBC (Auto) Urine Creatinine Digoxin 01/08/20 01/08/20 01/08/20 09:28 11:42 18:21 WBC RBC Hgb Hct MCHC RDW MCV MCH Lymph % (Auto) [place] % (Auto) [place] # Eos # Lymph # (Auto) [place] # (Auto) Eos # (Auto) Seg Neutrophils % Seg Neuts % (Manual) Baso # (Auto) Lymphocytes % (Manual) Monocytes % (Manual) Eosinophils % (Manual) Basophils % (Manual) Seg Neutrophils # Seg Neutrophils # Man Lymphocytes # (Manual) Monocytes # (Manual) Eosinophils # (Manual) Nucleated RBC % Basophils # (Manual) PT INR APTT Heparin Anti-Xa Level ABG pH POC ABG pO2 ABG pO2 ABG HCO3 ABG O2 Saturation ABG Base Excess POC ABG pCO2 ABG Hemoglobin ABG Oxyhemoglobin ABG Sodium ABG Chloride ABG Glucose Oxyhemoglobin Sodium Potassium Chloride Carbon Dioxide BUN Creatinine Glucose POC Glucose 181 H 150 H 129 H Lactic Acid Calcium Phosphorus Magnesium AST ALT Lactate Dehydrogenase Total Bilirubin Direct Bilirubin CK-MB (CK-2) C-Reactive Protein NT-Pro-B Natriuret Pep Total Protein Albumin Arterial Blood Glucose Urine WBC (Auto) Urine Creatinine Digoxin 01/08/20 01/08/20 01/09/20 19:25 23:55 04:11 WBC RBC 3.43 L Hgb 8.9 L Hct 28.7 L MCHC 31 L RDW 17.6 H MCV MCH 26 L Lymph % (Auto) [place] % (Auto) 8.6 H [place] # Eos # Lymph # (Auto) [place] # (Auto) Eos # (Auto) Seg Neutrophils % Seg Neuts % (Manual) Baso # (Auto) Lymphocytes % (Manual) Monocytes % (Manual) Eosinophils % (Manual) Basophils % (Manual) Seg Neutrophils # Seg Neutrophils # Man Lymphocytes # (Manual) Monocytes # (Manual) Eosinophils # (Manual) Nucleated RBC % Basophils # (Manual) PT INR APTT Heparin Anti-Xa Level ABG pH POC ABG pO2 ABG pO2 ABG HCO3 ABG O2 Saturation ABG Base Excess POC ABG pCO2 ABG Hemoglobin ABG Oxyhemoglobin ABG Sodium ABG Chloride ABG Glucose Oxyhemoglobin Sodium Potassium Chloride Carbon Dioxide BUN Creatinine 0.7 L Glucose 117 H POC Glucose 132 H Lactic Acid Calcium Phosphorus Magnesium AST ALT Lactate Dehydrogenase Total Bilirubin Direct Bilirubin CK-MB (CK-2) C-Reactive Protein NT-Pro-B Natriuret Pep Total Protein Albumin Arterial Blood Glucose Urine WBC (Auto) Urine Creatinine Digoxin 01/09/20 01/09/20 01/09/20 04:11 05:38 22:58 WBC RBC Hgb Hct MCHC RDW MCV MCH Lymph % (Auto) [place] % (Auto) [place] # Eos # Lymph # (Auto) [place] # (Auto) Eos # (Auto) Seg Neutrophils % Seg Neuts % (Manual) Baso # (Auto) Lymphocytes % (Manual) Monocytes % (Manual) Eosinophils % (Manual) Basophils % (Manual) Seg Neutrophils # Seg Neutrophils # Man Lymphocytes # (Manual) Monocytes # (Manual) Eosinophils # (Manual) Nucleated RBC % Basophils # (Manual) PT INR APTT Heparin Anti-Xa Level ABG pH POC ABG pO2 ABG pO2 ABG HCO3 ABG O2 Saturation ABG Base Excess POC ABG pCO2 ABG Hemoglobin ABG Oxyhemoglobin ABG Sodium ABG Chloride ABG Glucose Oxyhemoglobin Sodium 147 H Potassium 3.3 L D Chloride Carbon Dioxide 32 H BUN Creatinine 0.6 L Glucose 106 H POC Glucose 107 H 113 H Lactic Acid Calcium Phosphorus Magnesium AST ALT Lactate Dehydrogenase Total Bilirubin Direct Bilirubin CK-MB (CK-2) C-Reactive Protein NT-Pro-B Natriuret Pep Total Protein Albumin Arterial Blood Glucose Urine WBC (Auto) Urine Creatinine Digoxin 01/10/20 01/10/20 01/10/20 04:05 11:36 17:54 WBC RBC Hgb Hct MCHC RDW MCV MCH Lymph % (Auto) [place] % (Auto) [place] # Eos # Lymph # (Auto) [place] # (Auto) Eos # (Auto) Seg Neutrophils % Seg Neuts % (Manual) Baso # (Auto) Lymphocytes % (Manual) Monocytes % (Manual) Eosinophils % (Manual) Basophils % (Manual) Seg Neutrophils # Seg Neutrophils # Man Lymphocytes # (Manual) Monocytes # (Manual) Eosinophils # (Manual) Nucleated RBC % Basophils # (Manual) PT INR APTT Heparin Anti-Xa Level ABG pH POC ABG pO2 ABG pO2 ABG HCO3 ABG O2 Saturation ABG Base Excess POC ABG pCO2 ABG Hemoglobin ABG Oxyhemoglobin ABG Sodium ABG Chloride ABG Glucose Oxyhemoglobin Sodium Potassium Chloride Carbon Dioxide BUN Creatinine 0.7 L Glucose 110 H POC Glucose 129 H 117 H Lactic Acid Calcium Phosphorus Magnesium AST ALT Lactate Dehydrogenase Total Bilirubin Direct Bilirubin CK-MB (CK-2) C-Reactive Protein NT-Pro-B Natriuret Pep Total Protein Albumin Arterial Blood Glucose Urine WBC (Auto) Urine Creatinine Digoxin 01/10/20 01/11/20 01/11/20 23:52 03:19 12:09 WBC RBC Hgb Hct MCHC RDW MCV MCH Lymph % (Auto) [place] % (Auto) [place] # Eos # Lymph # (Auto) [place] # (Auto) Eos # (Auto) Seg Neutrophils % Seg Neuts % (Manual) Baso # (Auto) Lymphocytes % (Manual) Monocytes % (Manual) Eosinophils % (Manual) Basophils % (Manual) Seg Neutrophils # Seg Neutrophils # Man Lymphocytes # (Manual) Monocytes # (Manual) Eosinophils # (Manual) Nucleated RBC % Basophils # (Manual) PT INR APTT Heparin Anti-Xa Level ABG pH POC ABG pO2 ABG pO2 ABG HCO3 ABG O2 Saturation ABG Base Excess POC ABG pCO2 ABG Hemoglobin ABG Oxyhemoglobin ABG Sodium ABG Chloride ABG Glucose Oxyhemoglobin Sodium Potassium Chloride Carbon Dioxide BUN Creatinine Glucose POC Glucose 117 H 136 H 115 H Lactic Acid Calcium Phosphorus Magnesium AST ALT Lactate Dehydrogenase Total Bilirubin Direct Bilirubin CK-MB (CK-2) C-Reactive Protein NT-Pro-B Natriuret Pep Total Protein Albumin Arterial Blood Glucose Urine WBC (Auto) Urine Creatinine Digoxin 01/11/20 01/11/20 01/12/20 18:27 23:28 00:23 WBC RBC Hgb 9.8 L Hct 31.6 L MCHC 31 L RDW 17.8 H MCV 83 L MCH 26 L Lymph % (Auto) [place] % (Auto) 8.0 H [place] # Eos # Lymph # (Auto) [place] # (Auto) Eos # (Auto) Seg Neutrophils % Seg Neuts % (Manual) Baso # (Auto) Lymphocytes % (Manual) Monocytes % (Manual) Eosinophils % (Manual) Basophils % (Manual) Seg Neutrophils # Seg Neutrophils # Man Lymphocytes # (Manual) Monocytes # (Manual) Eosinophils # (Manual) Nucleated RBC % Basophils # (Manual) PT INR APTT Heparin Anti-Xa Level ABG pH POC ABG pO2 ABG pO2 ABG HCO3 ABG O2 Saturation ABG Base Excess POC ABG pCO2 ABG Hemoglobin ABG Oxyhemoglobin ABG Sodium ABG Chloride ABG Glucose Oxyhemoglobin Sodium Potassium Chloride Carbon Dioxide BUN Creatinine Glucose POC Glucose 118 H 122 H Lactic Acid Calcium Phosphorus Magnesium AST ALT Lactate Dehydrogenase Total Bilirubin Direct Bilirubin CK-MB (CK-2) C-Reactive Protein NT-Pro-B Natriuret Pep Total Protein Albumin Arterial Blood Glucose Urine WBC (Auto) Urine Creatinine Digoxin 01/12/20 01/12/20 01/12/20 00:23 04:18 04:18 WBC RBC Hgb 9.6 L Hct 30.9 L MCHC 31 L RDW 17.3 H MCV 81 L MCH 25 L Lymph % (Auto) [place] % (Auto) [place] # Eos # Lymph # (Auto) [place] # (Auto) Eos # (Auto) Seg Neutrophils % Seg Neuts % (Manual) Baso # (Auto) Lymphocytes % (Manual) Monocytes % (Manual) Eosinophils % (Manual) Basophils % (Manual) Seg Neutrophils # Seg Neutrophils # Man Lymphocytes # (Manual) Monocytes # (Manual) Eosinophils # (Manual) Nucleated RBC % Basophils # (Manual) PT INR APTT Heparin Anti-Xa Level ABG pH POC ABG pO2 ABG pO2 ABG HCO3 ABG O2 Saturation ABG Base Excess POC ABG pCO2 ABG Hemoglobin ABG Oxyhemoglobin ABG Sodium ABG Chloride ABG Glucose Oxyhemoglobin Sodium Potassium Chloride Carbon Dioxide BUN Creatinine 0.7 L 0.7 L Glucose 111 H 108 H POC Glucose Lactic Acid Calcium Phosphorus Magnesium AST ALT Lactate Dehydrogenase Total Bilirubin Direct Bilirubin CK-MB (CK-2) C-Reactive Protein NT-Pro-B Natriuret Pep Total Protein Albumin 2.6 L Arterial Blood Glucose Urine WBC (Auto) Urine Creatinine Digoxin 01/12/20 01/12/20 01/12/20 06:03 12:27 13:58 WBC RBC Hgb Hct MCHC RDW MCV MCH Lymph % (Auto) [place] % (Auto) [place] # Eos # Lymph # (Auto) [place] # (Auto) Eos # (Auto) Seg Neutrophils % Seg Neuts % (Manual) Baso # (Auto) Lymphocytes % (Manual) Monocytes % (Manual) Eosinophils % (Manual) Basophils % (Manual) Seg Neutrophils # Seg Neutrophils # Man Lymphocytes # (Manual) Monocytes # (Manual) Eosinophils # (Manual) Nucleated RBC % Basophils # (Manual) PT INR APTT Heparin Anti-Xa Level ABG pH 7.453 H POC ABG pO2 76.6 L ABG pO2 ABG HCO3 ABG O2 Saturation ABG Base Excess POC ABG pCO2 ABG Hemoglobin 10.3 L ABG Oxyhemoglobin ABG Sodium ABG Chloride ABG Glucose 99 H Oxyhemoglobin Sodium Potassium Chloride Carbon Dioxide BUN Creatinine Glucose POC Glucose 128 H 121 H Lactic Acid Calcium Phosphorus Magnesium AST ALT Lactate Dehydrogenase Total Bilirubin Direct Bilirubin CK-MB (CK-2) C-Reactive Protein NT-Pro-B Natriuret Pep Total Protein Albumin Arterial Blood Glucose 99 H Urine WBC (Auto) Urine Creatinine Digoxin 01/12/20 01/13/20 01/13/20 18:24 12:01 17:46 WBC RBC Hgb Hct MCHC RDW MCV MCH Lymph % (Auto) [place] % (Auto) [place] # Eos # Lymph # (Auto) [place] # (Auto) Eos # (Auto) Seg Neutrophils % Seg Neuts % (Manual) Baso # (Auto) Lymphocytes % (Manual) Monocytes % (Manual) Eosinophils % (Manual) Basophils % (Manual) Seg Neutrophils # Seg Neutrophils # Man Lymphocytes # (Manual) Monocytes # (Manual) Eosinophils # (Manual) Nucleated RBC % Basophils # (Manual) PT INR APTT Heparin Anti-Xa Level ABG pH POC ABG pO2 ABG pO2 ABG HCO3 ABG O2 Saturation ABG Base Excess POC ABG pCO2 ABG Hemoglobin ABG Oxyhemoglobin ABG Sodium ABG Chloride ABG Glucose Oxyhemoglobin Sodium Potassium Chloride Carbon Dioxide BUN Creatinine Glucose POC Glucose 119 H 107 H 124 H Lactic Acid Calcium Phosphorus Magnesium AST ALT Lactate Dehydrogenase Total Bilirubin Direct Bilirubin CK-MB (CK-2) C-Reactive Protein NT-Pro-B Natriuret Pep Total Protein Albumin Arterial Blood Glucose Urine WBC (Auto) Urine Creatinine Digoxin 01/13/20 01/14/20 01/14/20 20:40 00:10 05:33 WBC RBC Hgb Hct MCHC RDW MCV MCH Lymph % (Auto) [place] % (Auto) [place] # Eos # Lymph # (Auto) [place] # (Auto) Eos # (Auto) Seg Neutrophils % Seg Neuts % (Manual) Baso # (Auto) Lymphocytes % (Manual) Monocytes % (Manual) Eosinophils % (Manual) Basophils % (Manual) Seg Neutrophils # Seg Neutrophils # Man Lymphocytes # (Manual) Monocytes # (Manual) Eosinophils # (Manual) Nucleated RBC % Basophils # (Manual) PT INR APTT Heparin Anti-Xa Level ABG pH POC ABG pO2 ABG pO2 65.3 L ABG HCO3 31.8 H ABG O2 Saturation 93.5 L ABG Base Excess 6.7 H POC ABG pCO2 ABG Hemoglobin 13.3 L ABG Oxyhemoglobin ABG Sodium ABG Chloride ABG Glucose Oxyhemoglobin 90.9 L Sodium Potassium Chloride Carbon Dioxide BUN Creatinine Glucose POC Glucose 111 H 111 H Lactic Acid Calcium Phosphorus Magnesium AST ALT Lactate Dehydrogenase Total Bilirubin Direct Bilirubin CK-MB (CK-2) C-Reactive Protein NT-Pro-B Natriuret Pep Total Protein Albumin Arterial Blood Glucose Urine WBC (Auto) Urine Creatinine Digoxin 01/14/20 01/14/20 01/14/20 12:10 16:14 16:14 WBC RBC Hgb 10.6 L Hct 34.2 L MCHC 31 L RDW 18.3 H MCV 83 L MCH 26 L Lymph % (Auto) [place] % (Auto) 7.4 H [place] # Eos # Lymph # (Auto) [place] # (Auto) Eos # (Auto) Seg Neutrophils % 71.9 H Seg Neuts % (Manual) Baso # (Auto) Lymphocytes % (Manual) Monocytes % (Manual) Eosinophils % (Manual) Basophils % (Manual) Seg Neutrophils # Seg Neutrophils # Man Lymphocytes # (Manual) Monocytes # (Manual) Eosinophils # (Manual) Nucleated RBC % Basophils # (Manual) PT INR APTT Heparin Anti-Xa Level ABG pH POC ABG pO2 ABG pO2 ABG HCO3 ABG O2 Saturation ABG Base Excess POC ABG pCO2 ABG Hemoglobin ABG Oxyhemoglobin ABG Sodium ABG Chloride ABG Glucose Oxyhemoglobin Sodium Potassium Chloride Carbon Dioxide 31 H BUN Creatinine 0.6 L Glucose 131 H POC Glucose 139 H Lactic Acid Calcium Phosphorus Magnesium AST ALT Lactate Dehydrogenase Total Bilirubin Direct Bilirubin CK-MB (CK-2) C-Reactive Protein NT-Pro-B Natriuret Pep Total Protein Albumin Arterial Blood Glucose Urine WBC (Auto) Urine Creatinine Digoxin 01/14/20 01/15/20 01/15/20 18:05 00:52 05:35 WBC RBC Hgb Hct MCHC RDW MCV MCH Lymph % (Auto) [place] % (Auto) [place] # Eos # Lymph # (Auto) [place] # (Auto) Eos # (Auto) Seg Neutrophils % Seg Neuts % (Manual) Baso # (Auto) Lymphocytes % (Manual) Monocytes % (Manual) Eosinophils % (Manual) Basophils % (Manual) Seg Neutrophils # Seg Neutrophils # Man Lymphocytes # (Manual) Monocytes # (Manual) Eosinophils # (Manual) Nucleated RBC % Basophils # (Manual) PT INR APTT Heparin Anti-Xa Level ABG pH POC ABG pO2 ABG pO2 ABG HCO3 ABG O2 Saturation ABG Base Excess POC ABG pCO2 ABG Hemoglobin ABG Oxyhemoglobin ABG Sodium ABG Chloride ABG Glucose Oxyhemoglobin Sodium Potassium Chloride Carbon Dioxide BUN Creatinine Glucose POC Glucose 147 H 140 H 159 H Lactic Acid Calcium Phosphorus Magnesium AST ALT Lactate Dehydrogenase Total Bilirubin Direct Bilirubin CK-MB (CK-2) C-Reactive Protein NT-Pro-B Natriuret Pep Total Protein Albumin Arterial Blood Glucose Urine WBC (Auto) Urine Creatinine Digoxin 01/15/20 01/15/20 01/16/20 12:52 17:43 00:32 WBC RBC Hgb Hct MCHC RDW MCV MCH Lymph % (Auto) [place] % (Auto) [place] # Eos # Lymph # (Auto) [place] # (Auto) Eos # (Auto) Seg Neutrophils % Seg Neuts % (Manual) Baso # (Auto) Lymphocytes % (Manual) Monocytes % (Manual) Eosinophils % (Manual) Basophils % (Manual) Seg Neutrophils # Seg Neutrophils # Man Lymphocytes # (Manual) Monocytes # (Manual) Eosinophils # (Manual) Nucleated RBC % Basophils # (Manual) PT INR APTT Heparin Anti-Xa Level ABG pH POC ABG pO2 ABG pO2 ABG HCO3 ABG O2 Saturation ABG Base Excess POC ABG pCO2 ABG Hemoglobin ABG Oxyhemoglobin ABG Sodium ABG Chloride ABG Glucose Oxyhemoglobin Sodium Potassium Chloride Carbon Dioxide BUN Creatinine Glucose POC Glucose 164 H 167 H 153 H Lactic Acid Calcium Phosphorus Magnesium AST ALT Lactate Dehydrogenase Total Bilirubin Direct Bilirubin CK-MB (CK-2) C-Reactive Protein NT-Pro-B Natriuret Pep Total Protein Albumin Arterial Blood Glucose Urine WBC (Auto) Urine Creatinine Digoxin 01/16/20 01/16/20 01/17/20 05:46 11:48 06:38 WBC RBC Hgb Hct MCHC RDW MCV MCH Lymph % (Auto) [place] % (Auto) [place] # Eos # Lymph # (Auto) [place] # (Auto) Eos # (Auto) Seg Neutrophils % Seg Neuts % (Manual) Baso # (Auto) Lymphocytes % (Manual) Monocytes % (Manual) Eosinophils % (Manual) Basophils % (Manual) Seg Neutrophils # Seg Neutrophils # Man Lymphocytes # (Manual) Monocytes # (Manual) Eosinophils # (Manual) Nucleated RBC % Basophils # (Manual) PT INR APTT Heparin Anti-Xa Level ABG pH POC ABG pO2 ABG pO2 ABG HCO3 ABG O2 Saturation ABG Base Excess POC ABG pCO2 ABG Hemoglobin ABG Oxyhemoglobin ABG Sodium ABG Chloride ABG Glucose Oxyhemoglobin Sodium Potassium Chloride Carbon Dioxide BUN Creatinine Glucose POC Glucose 163 H 155 H 116 H Lactic Acid Calcium Phosphorus Magnesium AST ALT Lactate Dehydrogenase Total Bilirubin Direct Bilirubin CK-MB (CK-2) C-Reactive Protein NT-Pro-B Natriuret Pep Total Protein Albumin Arterial Blood Glucose Urine WBC (Auto) Urine Creatinine Digoxin 01/17/20 01/17/20 01/18/20 11:36 17:43 00:12 WBC RBC Hgb Hct MCHC RDW MCV MCH Lymph % (Auto) [place] % (Auto) [place] # Eos # Lymph # (Auto) [place] # (Auto) Eos # (Auto) Seg Neutrophils % Seg Neuts % (Manual) Baso # (Auto) Lymphocytes % (Manual) Monocytes % (Manual) Eosinophils % (Manual) Basophils % (Manual) Seg Neutrophils # Seg Neutrophils # Man Lymphocytes # (Manual) Monocytes # (Manual) Eosinophils # (Manual) Nucleated RBC % Basophils # (Manual) PT INR APTT Heparin Anti-Xa Level ABG pH POC ABG pO2 ABG pO2 ABG HCO3 ABG O2 Saturation ABG Base Excess POC ABG pCO2 ABG Hemoglobin ABG Oxyhemoglobin ABG Sodium ABG Chloride ABG Glucose Oxyhemoglobin Sodium Potassium Chloride Carbon Dioxide BUN Creatinine Glucose POC Glucose 110 H 134 H 108 H Lactic Acid Calcium Phosphorus Magnesium AST ALT Lactate Dehydrogenase Total Bilirubin Direct Bilirubin CK-MB (CK-2) C-Reactive Protein NT-Pro-B Natriuret Pep Total Protein Albumin Arterial Blood Glucose Urine WBC (Auto) Urine Creatinine Digoxin 01/18/20 01/18/20 01/18/20 05:37 06:46 06:46 WBC RBC Hgb 10.1 L Hct 32.2 L MCHC 31 L RDW 18.1 H MCV 81 L MCH 25 L Lymph % (Auto) [place] % (Auto) [place] # Eos # Lymph # (Auto) [place] # (Auto) Eos # (Auto) Seg Neutrophils % 71.9 H Seg Neuts % (Manual) Baso # (Auto) Lymphocytes % (Manual) Monocytes % (Manual) Eosinophils % (Manual) Basophils % (Manual) Seg Neutrophils # Seg Neutrophils # Man Lymphocytes # (Manual) Monocytes # (Manual) Eosinophils # (Manual) Nucleated RBC % Basophils # (Manual) PT INR APTT Heparin Anti-Xa Level ABG pH POC ABG pO2 ABG pO2 ABG HCO3 ABG O2 Saturation ABG Base Excess POC ABG pCO2 ABG Hemoglobin ABG Oxyhemoglobin ABG Sodium ABG Chloride ABG Glucose Oxyhemoglobin Sodium Potassium Chloride Carbon Dioxide BUN Creatinine 0.7 L Glucose 155 H POC Glucose 168 H Lactic Acid Calcium Phosphorus Magnesium AST ALT Lactate Dehydrogenase Total Bilirubin Direct Bilirubin CK-MB (CK-2) C-Reactive Protein NT-Pro-B Natriuret Pep Total Protein Albumin Arterial Blood Glucose Urine WBC (Auto) Urine Creatinine Digoxin 01/18/20 01/18/20 01/18/20 12:05 17:14 23:28 WBC RBC Hgb Hct MCHC RDW MCV MCH Lymph % (Auto) [place] % (Auto) [place] # Eos # Lymph # (Auto) [place] # (Auto) Eos # (Auto) Seg Neutrophils % Seg Neuts % (Manual) Baso # (Auto) Lymphocytes % (Manual) Monocytes % (Manual) Eosinophils % (Manual) Basophils % (Manual) Seg Neutrophils # Seg Neutrophils # Man Lymphocytes # (Manual) Monocytes # (Manual) Eosinophils # (Manual) Nucleated RBC % Basophils # (Manual) PT INR APTT Heparin Anti-Xa Level ABG pH POC ABG pO2 ABG pO2 ABG HCO3 ABG O2 Saturation ABG Base Excess POC ABG pCO2 ABG Hemoglobin ABG Oxyhemoglobin ABG Sodium ABG Chloride ABG Glucose Oxyhemoglobin Sodium Potassium Chloride Carbon Dioxide BUN Creatinine Glucose POC Glucose 128 H 126 H 128 H Lactic Acid Calcium Phosphorus Magnesium AST ALT Lactate Dehydrogenase Total Bilirubin Direct Bilirubin CK-MB (CK-2) C-Reactive Protein NT-Pro-B Natriuret Pep Total Protein Albumin Arterial Blood Glucose Urine WBC (Auto) Urine Creatinine Digoxin 01/19/20 01/19/20 01/19/20 05:39 12:33 17:36 WBC RBC Hgb Hct MCHC RDW MCV MCH Lymph % (Auto) [place] % (Auto) [place] # Eos # Lymph # (Auto) [place] # (Auto) Eos # (Auto) Seg Neutrophils % Seg Neuts % (Manual) Baso # (Auto) Lymphocytes % (Manual) Monocytes % (Manual) Eosinophils % (Manual) Basophils % (Manual) Seg Neutrophils # Seg Neutrophils # Man Lymphocytes # (Manual) Monocytes # (Manual) Eosinophils # (Manual) Nucleated RBC % Basophils # (Manual) PT INR APTT Heparin Anti-Xa Level ABG pH POC ABG pO2 ABG pO2 ABG HCO3 ABG O2 Saturation ABG Base Excess POC ABG pCO2 ABG Hemoglobin ABG Oxyhemoglobin ABG Sodium ABG Chloride ABG Glucose Oxyhemoglobin Sodium Potassium Chloride Carbon Dioxide BUN Creatinine Glucose POC Glucose 164 H 171 H 152 H Lactic Acid Calcium Phosphorus Magnesium AST ALT Lactate Dehydrogenase Total Bilirubin Direct Bilirubin CK-MB (CK-2) C-Reactive Protein NT-Pro-B Natriuret Pep Total Protein Albumin Arterial Blood Glucose Urine WBC (Auto) Urine Creatinine Digoxin 01/20/20 01/20/20 01/20/20 00:12 05:20 05:35 WBC RBC Hgb 9.2 L Hct 29.4 L MCHC 31 L RDW 17.9 H MCV 81 L MCH 25 L Lymph % (Auto) [place] % (Auto) [place] # Eos # Lymph # (Auto) [place] # (Auto) Eos # (Auto) Seg Neutrophils % Seg Neuts % (Manual) Baso # (Auto) Lymphocytes % (Manual) Monocytes % (Manual) Eosinophils % (Manual) Basophils % (Manual) Seg Neutrophils # Seg Neutrophils # Man Lymphocytes # (Manual) Monocytes # (Manual) Eosinophils # (Manual) Nucleated RBC % Basophils # (Manual) PT INR APTT Heparin Anti-Xa Level ABG pH POC ABG pO2 ABG pO2 ABG HCO3 ABG O2 Saturation ABG Base Excess POC ABG pCO2 ABG Hemoglobin ABG Oxyhemoglobin ABG Sodium ABG Chloride ABG Glucose Oxyhemoglobin Sodium Potassium Chloride Carbon Dioxide BUN Creatinine Glucose POC Glucose 120 H 136 H Lactic Acid Calcium Phosphorus Magnesium AST ALT Lactate Dehydrogenase Total Bilirubin Direct Bilirubin CK-MB (CK-2) C-Reactive Protein NT-Pro-B Natriuret Pep Total Protein Albumin Arterial Blood Glucose Urine WBC (Auto) Urine Creatinine Digoxin 01/20/20 01/20/20 01/20/20 05:40 11:58 14:55 WBC RBC Hgb 9.0 L Hct 28.3 L MCHC RDW MCV MCH Lymph % (Auto) [place] % (Auto) [place] # Eos # Lymph # (Auto) [place] # (Auto) Eos # (Auto) Seg Neutrophils % Seg Neuts % (Manual) Baso # (Auto) Lymphocytes % (Manual) Monocytes % (Manual) Eosinophils % (Manual) Basophils % (Manual) Seg Neutrophils # Seg Neutrophils # Man Lymphocytes # (Manual) Monocytes # (Manual) Eosinophils # (Manual) Nucleated RBC % Basophils # (Manual) PT INR APTT Heparin Anti-Xa Level ABG pH POC ABG pO2 ABG pO2 ABG HCO3 ABG O2 Saturation ABG Base Excess POC ABG pCO2 ABG Hemoglobin ABG Oxyhemoglobin ABG Sodium ABG Chloride ABG Glucose Oxyhemoglobin Sodium Potassium Chloride Carbon Dioxide 32 H BUN 22 H Creatinine 0.7 L Glucose 128 H POC Glucose 152 H Lactic Acid Calcium Phosphorus Magnesium AST ALT Lactate Dehydrogenase Total Bilirubin Direct Bilirubin CK-MB (CK-2) C-Reactive Protein NT-Pro-B Natriuret Pep Total Protein Albumin Arterial Blood Glucose Urine WBC (Auto) Urine Creatinine Digoxin 01/20/20 01/20/20 01/20/20 14:55 18:14 21:35 WBC RBC Hgb Hct MCHC RDW MCV MCH Lymph % (Auto) [place] % (Auto) [place] # Eos # Lymph # (Auto) [place] # (Auto) Eos # (Auto) Seg Neutrophils % Seg Neuts % (Manual) Baso # (Auto) Lymphocytes % (Manual) Monocytes % (Manual) Eosinophils % (Manual) Basophils % (Manual) Seg Neutrophils # Seg Neutrophils # Man Lymphocytes # (Manual) Monocytes # (Manual) Eosinophils # (Manual) Nucleated RBC % Basophils # (Manual) PT 20.4 H INR 1.72 H APTT 40.6 H Heparin Anti-Xa Level > 2.00 H ABG pH POC ABG pO2 ABG pO2 ABG HCO3 ABG O2 Saturation ABG Base Excess POC ABG pCO2 ABG Hemoglobin ABG Oxyhemoglobin ABG Sodium ABG Chloride ABG Glucose Oxyhemoglobin Sodium Potassium Chloride Carbon Dioxide BUN Creatinine Glucose POC Glucose 150 H Lactic Acid Calcium Phosphorus Magnesium AST ALT Lactate Dehydrogenase Total Bilirubin Direct Bilirubin CK-MB (CK-2) C-Reactive Protein NT-Pro-B Natriuret Pep Total Protein Albumin Arterial Blood Glucose Urine WBC (Auto) Urine Creatinine Digoxin 01/21/20 01/21/20 01/21/20 00:30 05:47 05:59 WBC RBC Hgb Hct MCHC RDW MCV MCH Lymph % (Auto) [place] % (Auto) [place] # Eos # Lymph # (Auto) [place] # (Auto) Eos # (Auto) Seg Neutrophils % Seg Neuts % (Manual) Baso # (Auto) Lymphocytes % (Manual) Monocytes % (Manual) Eosinophils % (Manual) Basophils % (Manual) Seg Neutrophils # Seg Neutrophils # Man Lymphocytes # (Manual) Monocytes # (Manual) Eosinophils # (Manual) Nucleated RBC % Basophils # (Manual) PT INR APTT Heparin Anti-Xa Level 1.93 H ABG pH POC ABG pO2 ABG pO2 ABG HCO3 ABG O2 Saturation ABG Base Excess POC ABG pCO2 ABG Hemoglobin ABG Oxyhemoglobin ABG Sodium ABG Chloride ABG Glucose Oxyhemoglobin Sodium Potassium Chloride Carbon Dioxide BUN Creatinine Glucose POC Glucose 126 H 148 H Lactic Acid Calcium Phosphorus Magnesium AST ALT Lactate Dehydrogenase Total Bilirubin Direct Bilirubin CK-MB (CK-2) C-Reactive Protein NT-Pro-B Natriuret Pep Total Protein Albumin Arterial Blood Glucose Urine WBC (Auto) Urine Creatinine Digoxin 01/21/20 01/21/20 01/21/20 12:32 18:20 23:54 WBC RBC Hgb Hct MCHC RDW MCV MCH Lymph % (Auto) [place] % (Auto) [place] # Eos # Lymph # (Auto) [place] # (Auto) Eos # (Auto) Seg Neutrophils % Seg Neuts % (Manual) Baso # (Auto) Lymphocytes % (Manual) Monocytes % (Manual) Eosinophils % (Manual) Basophils % (Manual) Seg Neutrophils # Seg Neutrophils # Man Lymphocytes # (Manual) Monocytes # (Manual) Eosinophils # (Manual) Nucleated RBC % Basophils # (Manual) PT INR APTT Heparin Anti-Xa Level 1.28 H ABG pH POC ABG pO2 ABG pO2 ABG HCO3 ABG O2 Saturation ABG Base Excess POC ABG pCO2 ABG Hemoglobin ABG Oxyhemoglobin ABG Sodium ABG Chloride ABG Glucose Oxyhemoglobin Sodium Potassium Chloride Carbon Dioxide BUN Creatinine Glucose POC Glucose 112 H 146 H Lactic Acid Calcium Phosphorus Magnesium AST ALT Lactate Dehydrogenase Total Bilirubin Direct Bilirubin CK-MB (CK-2) C-Reactive Protein NT-Pro-B Natriuret Pep Total Protein Albumin Arterial Blood Glucose Urine WBC (Auto) Urine Creatinine Digoxin 01/22/20 01/22/20 01/22/20 04:45 04:45 05:48 WBC RBC Hgb 9.3 L Hct 29.0 L MCHC RDW MCV MCH Lymph % (Auto) [place] % (Auto) [place] # Eos # Lymph # (Auto) [place] # (Auto) Eos # (Auto) Seg Neutrophils % Seg Neuts % (Manual) Baso # (Auto) Lymphocytes % (Manual) Monocytes % (Manual) Eosinophils % (Manual) Basophils % (Manual) Seg Neutrophils # Seg Neutrophils # Man Lymphocytes # (Manual) Monocytes # (Manual) Eosinophils # (Manual) Nucleated RBC % Basophils # (Manual) PT INR APTT Heparin Anti-Xa Level 1.34 H ABG pH POC ABG pO2 ABG pO2 ABG HCO3 ABG O2 Saturation ABG Base Excess POC ABG pCO2 ABG Hemoglobin ABG Oxyhemoglobin ABG Sodium ABG Chloride ABG Glucose Oxyhemoglobin Sodium Potassium Chloride Carbon Dioxide BUN Creatinine Glucose POC Glucose 142 H Lactic Acid Calcium Phosphorus Magnesium AST ALT Lactate Dehydrogenase Total Bilirubin Direct Bilirubin CK-MB (CK-2) C-Reactive Protein NT-Pro-B Natriuret Pep Total Protein Albumin Arterial Blood Glucose Urine WBC (Auto) Urine Creatinine Digoxin 01/22/20 01/22/20 01/22/20 08:09 08:22 09:58 WBC RBC Hgb Hct MCHC RDW MCV MCH Lymph % (Auto) [place] % (Auto) [place] # Eos # Lymph # (Auto) [place] # (Auto) Eos # (Auto) Seg Neutrophils % Seg Neuts % (Manual) Baso # (Auto) Lymphocytes % (Manual) Monocytes % (Manual) Eosinophils % (Manual) Basophils % (Manual) Seg Neutrophils # Seg Neutrophils # Man Lymphocytes # (Manual) Monocytes # (Manual) Eosinophils # (Manual) Nucleated RBC % Basophils # (Manual) PT 16.9 H INR 1.34 H APTT Heparin Anti-Xa Level ABG pH POC ABG pO2 ABG pO2 ABG HCO3 ABG O2 Saturation ABG Base Excess POC ABG pCO2 ABG Hemoglobin ABG Oxyhemoglobin ABG Sodium ABG Chloride ABG Glucose Oxyhemoglobin Sodium Potassium Chloride 97.8 L Carbon Dioxide BUN 29 H Creatinine Glucose 128 H POC Glucose 131 H Lactic Acid Calcium Phosphorus Magnesium AST ALT Lactate Dehydrogenase Total Bilirubin Direct Bilirubin CK-MB (CK-2) C-Reactive Protein NT-Pro-B Natriuret Pep Total Protein Albumin Arterial Blood Glucose Urine WBC (Auto) Urine Creatinine Digoxin 01/22/20 01/22/20 01/22/20 12:44 16:13 18:18 WBC RBC Hgb Hct MCHC RDW MCV MCH Lymph % (Auto) [place] % (Auto) [place] # Eos # Lymph # (Auto) [place] # (Auto) Eos # (Auto) Seg Neutrophils % Seg Neuts % (Manual) Baso # (Auto) Lymphocytes % (Manual) Monocytes % (Manual) Eosinophils % (Manual) Basophils % (Manual) Seg Neutrophils # Seg Neutrophils # Man Lymphocytes # (Manual) Monocytes # (Manual) Eosinophils # (Manual) Nucleated RBC % Basophils # (Manual) PT INR APTT Heparin Anti-Xa Level ABG pH POC ABG pO2 ABG pO2 ABG HCO3 ABG O2 Saturation ABG Base Excess POC ABG pCO2 ABG Hemoglobin ABG Oxyhemoglobin ABG Sodium ABG Chloride ABG Glucose Oxyhemoglobin Sodium Potassium Chloride Carbon Dioxide BUN Creatinine Glucose POC Glucose 156 H 133 H 155 H Lactic Acid Calcium Phosphorus Magnesium AST ALT Lactate Dehydrogenase Total Bilirubin Direct Bilirubin CK-MB (CK-2) C-Reactive Protein NT-Pro-B Natriuret Pep Total Protein Albumin Arterial Blood Glucose Urine WBC (Auto) Urine Creatinine Digoxin 01/22/20 01/23/20 01/23/20 23:22 05:37 12:59 WBC RBC Hgb Hct MCHC RDW MCV MCH Lymph % (Auto) [place] % (Auto) [place] # Eos # Lymph # (Auto) [place] # (Auto) Eos # (Auto) Seg Neutrophils % Seg Neuts % (Manual) Baso # (Auto) Lymphocytes % (Manual) Monocytes % (Manual) Eosinophils % (Manual) Basophils % (Manual) Seg Neutrophils # Seg Neutrophils # Man Lymphocytes # (Manual) Monocytes # (Manual) Eosinophils # (Manual) Nucleated RBC % Basophils # (Manual) PT INR APTT Heparin Anti-Xa Level ABG pH POC ABG pO2 ABG pO2 ABG HCO3 ABG O2 Saturation ABG Base Excess POC ABG pCO2 ABG Hemoglobin ABG Oxyhemoglobin ABG Sodium ABG Chloride ABG Glucose Oxyhemoglobin Sodium Potassium Chloride Carbon Dioxide BUN Creatinine Glucose POC Glucose 148 H 163 H 175 H Lactic Acid Calcium Phosphorus Magnesium AST ALT Lactate Dehydrogenase Total Bilirubin Direct Bilirubin CK-MB (CK-2) C-Reactive Protein NT-Pro-B Natriuret Pep Total Protein Albumin Arterial Blood Glucose Urine WBC (Auto) Urine Creatinine Digoxin 01/23/20 01/23/20 01/24/20 17:28 23:56 04:30 WBC RBC 3.46 L Hgb 8.8 L Hct 27.8 L MCHC RDW 18.2 H MCV 81 L MCH 25 L Lymph % (Auto) [place] % (Auto) 7.8 H [place] # Eos # Lymph # (Auto) [place] # (Auto) Eos # (Auto) Seg Neutrophils % Seg Neuts % (Manual) Baso # (Auto) Lymphocytes % (Manual) Monocytes % (Manual) Eosinophils % (Manual) Basophils % (Manual) Seg Neutrophils # Seg Neutrophils # Man Lymphocytes # (Manual) Monocytes # (Manual) Eosinophils # (Manual) Nucleated RBC % Basophils # (Manual) PT INR APTT Heparin Anti-Xa Level ABG pH POC ABG pO2 ABG pO2 ABG HCO3 ABG O2 Saturation ABG Base Excess POC ABG pCO2 ABG Hemoglobin ABG Oxyhemoglobin ABG Sodium ABG Chloride ABG Glucose Oxyhemoglobin Sodium Potassium Chloride Carbon Dioxide BUN Creatinine Glucose POC Glucose 165 H 177 H Lactic Acid Calcium Phosphorus Magnesium AST ALT Lactate Dehydrogenase Total Bilirubin Direct Bilirubin CK-MB (CK-2) C-Reactive Protein NT-Pro-B Natriuret Pep Total Protein Albumin Arterial Blood Glucose Urine WBC (Auto) Urine Creatinine Digoxin 01/24/20 01/24/20 01/24/20 04:30 07:18 12:06 WBC RBC Hgb Hct MCHC RDW MCV MCH Lymph % (Auto) [place] % (Auto) [place] # Eos # Lymph # (Auto) [place] # (Auto) Eos # (Auto) Seg Neutrophils % Seg Neuts % (Manual) Baso # (Auto) Lymphocytes % (Manual) Monocytes % (Manual) Eosinophils % (Manual) Basophils % (Manual) Seg Neutrophils # Seg Neutrophils # Man Lymphocytes # (Manual) Monocytes # (Manual) Eosinophils # (Manual) Nucleated RBC % Basophils # (Manual) PT INR APTT Heparin Anti-Xa Level ABG pH POC ABG pO2 ABG pO2 ABG HCO3 ABG O2 Saturation ABG Base Excess POC ABG pCO2 ABG Hemoglobin ABG Oxyhemoglobin ABG Sodium ABG Chloride ABG Glucose Oxyhemoglobin Sodium Potassium Chloride 97.9 L Carbon Dioxide BUN 31 H Creatinine Glucose 146 H POC Glucose 151 H 133 H Lactic Acid Calcium Phosphorus Magnesium AST ALT Lactate Dehydrogenase Total Bilirubin Direct Bilirubin CK-MB (CK-2) C-Reactive Protein NT-Pro-B Natriuret Pep Total Protein Albumin Arterial Blood Glucose Urine WBC (Auto) Urine Creatinine Digoxin 01/24/20 01/25/20 01/25/20 17:36 00:08 04:25 WBC RBC 3.50 L Hgb 8.7 L Hct 27.9 L MCHC 31 L RDW 18.2 H MCV 80 L MCH 25 L Lymph % (Auto) [place] % (Auto) 8.5 H [place] # Eos # Lymph # (Auto) [place] # (Auto) Eos # (Auto) Seg Neutrophils % Seg Neuts % (Manual) Baso # (Auto) Lymphocytes % (Manual) Monocytes % (Manual) Eosinophils % (Manual) Basophils % (Manual) Seg Neutrophils # Seg Neutrophils # Man Lymphocytes # (Manual) Monocytes # (Manual) Eosinophils # (Manual) Nucleated RBC % Basophils # (Manual) PT INR APTT Heparin Anti-Xa Level ABG pH POC ABG pO2 ABG pO2 ABG HCO3 ABG O2 Saturation ABG Base Excess POC ABG pCO2 ABG Hemoglobin ABG Oxyhemoglobin ABG Sodium ABG Chloride ABG Glucose Oxyhemoglobin Sodium Potassium Chloride Carbon Dioxide BUN Creatinine Glucose POC Glucose 133 H 129 H Lactic Acid Calcium Phosphorus Magnesium AST ALT Lactate Dehydrogenase Total Bilirubin Direct Bilirubin CK-MB (CK-2) C-Reactive Protein NT-Pro-B Natriuret Pep Total Protein Albumin Arterial Blood Glucose Urine WBC (Auto) Urine Creatinine Digoxin 01/25/20 01/25/20 01/25/20 04:25 05:38 11:52 WBC RBC Hgb Hct MCHC RDW MCV MCH Lymph % (Auto) [place] % (Auto) [place] # Eos # Lymph # (Auto) [place] # (Auto) Eos # (Auto) Seg Neutrophils % Seg Neuts % (Manual) Baso # (Auto) Lymphocytes % (Manual) Monocytes % (Manual) Eosinophils % (Manual) Basophils % (Manual) Seg Neutrophils # Seg Neutrophils # Man Lymphocytes # (Manual) Monocytes # (Manual) Eosinophils # (Manual) Nucleated RBC % Basophils # (Manual) PT INR APTT Heparin Anti-Xa Level ABG pH POC ABG pO2 ABG pO2 ABG HCO3 ABG O2 Saturation ABG Base Excess POC ABG pCO2 ABG Hemoglobin ABG Oxyhemoglobin ABG Sodium ABG Chloride ABG Glucose Oxyhemoglobin Sodium Potassium Chloride Carbon Dioxide BUN 30 H Creatinine Glucose 134 H POC Glucose 129 H 134 H Lactic Acid Calcium Phosphorus Magnesium AST ALT Lactate Dehydrogenase Total Bilirubin Direct Bilirubin CK-MB (CK-2) C-Reactive Protein NT-Pro-B Natriuret Pep Total Protein Albumin Arterial Blood Glucose Urine WBC (Auto) Urine Creatinine Digoxin 01/25/20 01/25/20 01/26/20 17:13 21:02 00:59 WBC RBC Hgb Hct MCHC RDW MCV MCH Lymph % (Auto) [place] % (Auto) [place] # Eos # Lymph # (Auto) [place] # (Auto) Eos # (Auto) Seg Neutrophils % Seg Neuts % (Manual) Baso # (Auto) Lymphocytes % (Manual) Monocytes % (Manual) Eosinophils % (Manual) Basophils % (Manual) Seg Neutrophils # Seg Neutrophils # Man Lymphocytes # (Manual) Monocytes # (Manual) Eosinophils # (Manual) Nucleated RBC % Basophils # (Manual) PT INR APTT Heparin Anti-Xa Level ABG pH POC ABG pO2 ABG pO2 57.5 L ABG HCO3 31.7 H ABG O2 Saturation 90.3 L ABG Base Excess 6.6 H POC ABG pCO2 ABG Hemoglobin 13.0 L ABG Oxyhemoglobin ABG Sodium ABG Chloride ABG Glucose Oxyhemoglobin 87.5 L Sodium Potassium Chloride Carbon Dioxide BUN Creatinine Glucose POC Glucose 124 H 196 H Lactic Acid Calcium Phosphorus Magnesium AST ALT Lactate Dehydrogenase Total Bilirubin Direct Bilirubin CK-MB (CK-2) C-Reactive Protein NT-Pro-B Natriuret Pep Total Protein Albumin Arterial Blood Glucose Urine WBC (Auto) Urine Creatinine Digoxin 01/26/20 01/26/20 01/26/20 03:20 05:46 12:46 WBC RBC Hgb 9.2 L Hct 29.4 L MCHC RDW MCV MCH Lymph % (Auto) [place] % (Auto) [place] # Eos # Lymph # (Auto) [place] # (Auto) Eos # (Auto) Seg Neutrophils % Seg Neuts % (Manual) Baso # (Auto) Lymphocytes % (Manual) Monocytes % (Manual) Eosinophils % (Manual) Basophils % (Manual) Seg Neutrophils # Seg Neutrophils # Man Lymphocytes # (Manual) Monocytes # (Manual) Eosinophils # (Manual) Nucleated RBC % Basophils # (Manual) PT INR APTT Heparin Anti-Xa Level ABG pH POC ABG pO2 ABG pO2 ABG HCO3 ABG O2 Saturation ABG Base Excess POC ABG pCO2 ABG Hemoglobin ABG Oxyhemoglobin ABG Sodium ABG Chloride ABG Glucose Oxyhemoglobin Sodium Potassium Chloride Carbon Dioxide BUN Creatinine Glucose POC Glucose 141 H 122 H Lactic Acid Calcium Phosphorus Magnesium AST ALT Lactate Dehydrogenase Total Bilirubin Direct Bilirubin CK-MB (CK-2) C-Reactive Protein NT-Pro-B Natriuret Pep Total Protein Albumin Arterial Blood Glucose Urine WBC (Auto) Urine Creatinine Digoxin 01/26/20 01/26/20 01/27/20 18:03 23:55 04:47 WBC RBC Hgb Hct MCHC RDW MCV MCH Lymph % (Auto) [place] % (Auto) [place] # Eos # Lymph # (Auto) [place] # (Auto) Eos # (Auto) Seg Neutrophils % Seg Neuts % (Manual) Baso # (Auto) Lymphocytes % (Manual) Monocytes % (Manual) Eosinophils % (Manual) Basophils % (Manual) Seg Neutrophils # Seg Neutrophils # Man Lymphocytes # (Manual) Monocytes # (Manual) Eosinophils # (Manual) Nucleated RBC % Basophils # (Manual) PT INR APTT Heparin Anti-Xa Level ABG pH POC ABG pO2 ABG pO2 ABG HCO3 ABG O2 Saturation ABG Base Excess POC ABG pCO2 ABG Hemoglobin ABG Oxyhemoglobin ABG Sodium ABG Chloride ABG Glucose Oxyhemoglobin Sodium Potassium Chloride Carbon Dioxide BUN 30 H Creatinine 0.7 L Glucose 135 H POC Glucose 142 H 159 H Lactic Acid Calcium Phosphorus Magnesium AST ALT Lactate Dehydrogenase Total Bilirubin Direct Bilirubin CK-MB (CK-2) C-Reactive Protein NT-Pro-B Natriuret Pep Total Protein Albumin Arterial Blood Glucose Urine WBC (Auto) Urine Creatinine Digoxin 01/27/20 01/27/20 01/27/20 05:43 12:06 17:16 WBC RBC Hgb Hct MCHC RDW MCV MCH Lymph % (Auto) [place] % (Auto) [place] # Eos # Lymph # (Auto) [place] # (Auto) Eos # (Auto) Seg Neutrophils % Seg Neuts % (Manual) Baso # (Auto) Lymphocytes % (Manual) Monocytes % (Manual) Eosinophils % (Manual) Basophils % (Manual) Seg Neutrophils # Seg Neutrophils # Man Lymphocytes # (Manual) Monocytes # (Manual) Eosinophils # (Manual) Nucleated RBC % Basophils # (Manual) PT INR APTT Heparin Anti-Xa Level ABG pH POC ABG pO2 ABG pO2 ABG HCO3 ABG O2 Saturation ABG Base Excess POC ABG pCO2 ABG Hemoglobin ABG Oxyhemoglobin ABG Sodium ABG Chloride ABG Glucose Oxyhemoglobin Sodium Potassium Chloride Carbon Dioxide BUN Creatinine Glucose POC Glucose 143 H 142 H 128 H Lactic Acid Calcium Phosphorus Magnesium AST ALT Lactate Dehydrogenase Total Bilirubin Direct Bilirubin CK-MB (CK-2) C-Reactive Protein NT-Pro-B Natriuret Pep Total Protein Albumin Arterial Blood Glucose Urine WBC (Auto) Urine Creatinine Digoxin 01/27/20 01/28/20 01/28/20 23:55 04:37 05:55 WBC RBC Hgb 9.4 L Hct 29.9 L MCHC RDW MCV MCH Lymph % (Auto) [place] % (Auto) [place] # Eos # Lymph # (Auto) [place] # (Auto) Eos # (Auto) Seg Neutrophils % Seg Neuts % (Manual) Baso # (Auto) Lymphocytes % (Manual) Monocytes % (Manual) Eosinophils % (Manual) Basophils % (Manual) Seg Neutrophils # Seg Neutrophils # Man Lymphocytes # (Manual) Monocytes # (Manual) Eosinophils # (Manual) Nucleated RBC % Basophils # (Manual) PT INR APTT Heparin Anti-Xa Level ABG pH POC ABG pO2 ABG pO2 ABG HCO3 ABG O2 Saturation ABG Base Excess POC ABG pCO2 ABG Hemoglobin ABG Oxyhemoglobin ABG Sodium ABG Chloride ABG Glucose Oxyhemoglobin Sodium Potassium Chloride Carbon Dioxide BUN Creatinine Glucose POC Glucose 166 H 169 H Lactic Acid Calcium Phosphorus Magnesium AST ALT Lactate Dehydrogenase Total Bilirubin Direct Bilirubin CK-MB (CK-2) C-Reactive Protein NT-Pro-B Natriuret Pep Total Protein Albumin Arterial Blood Glucose Urine WBC (Auto) Urine Creatinine Digoxin 01/28/20 01/28/20 01/28/20 11:58 17:26 23:46 WBC RBC Hgb Hct MCHC RDW MCV MCH Lymph % (Auto) [place] % (Auto) [place] # Eos # Lymph # (Auto) [place] # (Auto) Eos # (Auto) Seg Neutrophils % Seg Neuts % (Manual) Baso # (Auto) Lymphocytes % (Manual) Monocytes % (Manual) Eosinophils % (Manual) Basophils % (Manual) Seg Neutrophils # Seg Neutrophils # Man Lymphocytes # (Manual) Monocytes # (Manual) Eosinophils # (Manual) Nucleated RBC % Basophils # (Manual) PT INR APTT Heparin Anti-Xa Level ABG pH POC ABG pO2 ABG pO2 ABG HCO3 ABG O2 Saturation ABG Base Excess POC ABG pCO2 ABG Hemoglobin ABG Oxyhemoglobin ABG Sodium ABG Chloride ABG Glucose Oxyhemoglobin Sodium Potassium Chloride Carbon Dioxide BUN Creatinine Glucose POC Glucose 130 H 126 H 150 H Lactic Acid Calcium Phosphorus Magnesium AST ALT Lactate Dehydrogenase Total Bilirubin Direct Bilirubin CK-MB (CK-2) C-Reactive Protein NT-Pro-B Natriuret Pep Total Protein Albumin Arterial Blood Glucose Urine WBC (Auto) Urine Creatinine Digoxin 01/29/20 01/29/20 01/29/20 04:55 06:00 12:28 WBC RBC Hgb Hct MCHC RDW MCV MCH Lymph % (Auto) [place] % (Auto) [place] # Eos # Lymph # (Auto) [place] # (Auto) Eos # (Auto) Seg Neutrophils % Seg Neuts % (Manual) Baso # (Auto) Lymphocytes % (Manual) Monocytes % (Manual) Eosinophils % (Manual) Basophils % (Manual) Seg Neutrophils # Seg Neutrophils # Man Lymphocytes # (Manual) Monocytes # (Manual) Eosinophils # (Manual) Nucleated RBC % Basophils # (Manual) PT INR APTT Heparin Anti-Xa Level ABG pH POC ABG pO2 ABG pO2 ABG HCO3 ABG O2 Saturation ABG Base Excess POC ABG pCO2 ABG Hemoglobin ABG Oxyhemoglobin ABG Sodium ABG Chloride ABG Glucose Oxyhemoglobin Sodium Potassium Chloride Carbon Dioxide 34 H BUN Creatinine 0.6 L Glucose 152 H POC Glucose 157 H 156 H Lactic Acid Calcium Phosphorus Magnesium AST ALT Lactate Dehydrogenase Total Bilirubin Direct Bilirubin CK-MB (CK-2) C-Reactive Protein NT-Pro-B Natriuret Pep Total Protein Albumin Arterial Blood Glucose Urine WBC (Auto) Urine Creatinine Digoxin 01/29/20 01/30/20 01/30/20 19:06 00:29 05:39 WBC RBC Hgb Hct MCHC RDW MCV MCH Lymph % (Auto) [place] % (Auto) [place] # Eos # Lymph # (Auto) [place] # (Auto) Eos # (Auto) Seg Neutrophils % Seg Neuts % (Manual) Baso # (Auto) Lymphocytes % (Manual) Monocytes % (Manual) Eosinophils % (Manual) Basophils % (Manual) Seg Neutrophils # Seg Neutrophils # Man Lymphocytes # (Manual) Monocytes # (Manual) Eosinophils # (Manual) Nucleated RBC % Basophils # (Manual) PT INR APTT Heparin Anti-Xa Level ABG pH POC ABG pO2 ABG pO2 ABG HCO3 ABG O2 Saturation ABG Base Excess POC ABG pCO2 ABG Hemoglobin ABG Oxyhemoglobin ABG Sodium ABG Chloride ABG Glucose Oxyhemoglobin Sodium Potassium Chloride Carbon Dioxide BUN Creatinine Glucose POC Glucose 152 H 132 H 159 H Lactic Acid Calcium Phosphorus Magnesium AST ALT Lactate Dehydrogenase Total Bilirubin Direct Bilirubin CK-MB (CK-2) C-Reactive Protein NT-Pro-B Natriuret Pep Total Protein Albumin Arterial Blood Glucose Urine WBC (Auto) Urine Creatinine Digoxin 01/30/20 01/30/20 01/30/20 12:27 17:42 23:28 WBC RBC Hgb Hct MCHC RDW MCV MCH Lymph % (Auto) [place] % (Auto) [place] # Eos # Lymph # (Auto) [place] # (Auto) Eos # (Auto) Seg Neutrophils % Seg Neuts % (Manual) Baso # (Auto) Lymphocytes % (Manual) Monocytes % (Manual) Eosinophils % (Manual) Basophils % (Manual) Seg Neutrophils # Seg Neutrophils # Man Lymphocytes # (Manual) Monocytes # (Manual) Eosinophils # (Manual) Nucleated RBC % Basophils # (Manual) PT INR APTT Heparin Anti-Xa Level ABG pH POC ABG pO2 ABG pO2 ABG HCO3 ABG O2 Saturation ABG Base Excess POC ABG pCO2 ABG Hemoglobin ABG Oxyhemoglobin ABG Sodium ABG Chloride ABG Glucose Oxyhemoglobin Sodium Potassium Chloride Carbon Dioxide BUN Creatinine Glucose POC Glucose 151 H 144 H 164 H Lactic Acid Calcium Phosphorus Magnesium AST ALT Lactate Dehydrogenase Total Bilirubin Direct Bilirubin CK-MB (CK-2) C-Reactive Protein NT-Pro-B Natriuret Pep Total Protein Albumin Arterial Blood Glucose Urine WBC (Auto) Urine Creatinine Digoxin 01/31/20 01/31/20 01/31/20 05:51 11:51 18:06 WBC RBC Hgb Hct MCHC RDW MCV MCH Lymph % (Auto) [place] % (Auto) [place] # Eos # Lymph # (Auto) [place] # (Auto) Eos # (Auto) Seg Neutrophils % Seg Neuts % (Manual) Baso # (Auto) Lymphocytes % (Manual) Monocytes % (Manual) Eosinophils % (Manual) Basophils % (Manual) Seg Neutrophils # Seg Neutrophils # Man Lymphocytes # (Manual) Monocytes # (Manual) Eosinophils # (Manual) Nucleated RBC % Basophils # (Manual) PT INR APTT Heparin Anti-Xa Level ABG pH POC ABG pO2 ABG pO2 ABG HCO3 ABG O2 Saturation ABG Base Excess POC ABG pCO2 ABG Hemoglobin ABG Oxyhemoglobin ABG Sodium ABG Chloride ABG Glucose Oxyhemoglobin Sodium Potassium Chloride Carbon Dioxide BUN Creatinine Glucose POC Glucose 131 H 167 H 210 H Lactic Acid Calcium Phosphorus Magnesium AST ALT Lactate Dehydrogenase Total Bilirubin Direct Bilirubin CK-MB (CK-2) C-Reactive Protein NT-Pro-B Natriuret Pep Total Protein Albumin Arterial Blood Glucose Urine WBC (Auto) Urine Creatinine Digoxin 01/31/20 01/31/20 02/01/20 19:24 Unknown 00:34 WBC RBC Hgb Hct MCHC RDW MCV MCH Lymph % (Auto) [place] % (Auto) [place] # Eos # Lymph # (Auto) [place] # (Auto) Eos # (Auto) Seg Neutrophils % Seg Neuts % (Manual) Baso # (Auto) Lymphocytes % (Manual) Monocytes % (Manual) Eosinophils % (Manual) Basophils % (Manual) Seg Neutrophils # Seg Neutrophils # Man Lymphocytes # (Manual) Monocytes # (Manual) Eosinophils # (Manual) Nucleated RBC % Basophils # (Manual) PT INR APTT Heparin Anti-Xa Level ABG pH POC ABG pO2 ABG pO2 ABG HCO3 ABG O2 Saturation ABG Base Excess POC ABG pCO2 ABG Hemoglobin ABG Oxyhemoglobin ABG Sodium ABG Chloride ABG Glucose Oxyhemoglobin Sodium Potassium Chloride 95.3 L Carbon Dioxide 33 H BUN 36 H Creatinine Glucose 187 H POC Glucose 116 H Lactic Acid Calcium Phosphorus Magnesium AST ALT Lactate Dehydrogenase Total Bilirubin Direct Bilirubin CK-MB (CK-2) C-Reactive Protein NT-Pro-B Natriuret Pep Total Protein Albumin Arterial Blood Glucose Urine WBC (Auto) Urine Creatinine 57.4 H Digoxin 02/01/20 02/01/20 02/01/20 05:24 10:40 12:29 WBC RBC Hgb Hct MCHC RDW MCV MCH Lymph % (Auto) [place] % (Auto) [place] # Eos # Lymph # (Auto) [place] # (Auto) Eos # (Auto) Seg Neutrophils % Seg Neuts % (Manual) Baso # (Auto) Lymphocytes % (Manual) Monocytes % (Manual) Eosinophils % (Manual) Basophils % (Manual) Seg Neutrophils # Seg Neutrophils # Man Lymphocytes # (Manual) Monocytes # (Manual) Eosinophils # (Manual) Nucleated RBC % Basophils # (Manual) PT INR APTT Heparin Anti-Xa Level ABG pH POC ABG pO2 ABG pO2 ABG HCO3 ABG O2 Saturation ABG Base Excess POC ABG pCO2 ABG Hemoglobin ABG Oxyhemoglobin ABG Sodium ABG Chloride ABG Glucose Oxyhemoglobin Sodium Potassium Chloride Carbon Dioxide BUN Creatinine Glucose POC Glucose 142 H 165 H 151 H Lactic Acid Calcium Phosphorus Magnesium AST ALT Lactate Dehydrogenase Total Bilirubin Direct Bilirubin CK-MB (CK-2) C-Reactive Protein NT-Pro-B Natriuret Pep Total Protein Albumin Arterial Blood Glucose Urine WBC (Auto) Urine Creatinine Digoxin 02/01/20 02/01/20 02/02/20 17:16 23:23 06:36 WBC RBC Hgb Hct MCHC RDW MCV MCH Lymph % (Auto) [place] % (Auto) [place] # Eos # Lymph # (Auto) [place] # (Auto) Eos # (Auto) Seg Neutrophils % Seg Neuts % (Manual) Baso # (Auto) Lymphocytes % (Manual) Monocytes % (Manual) Eosinophils % (Manual) Basophils % (Manual) Seg Neutrophils # Seg Neutrophils # Man Lymphocytes # (Manual) Monocytes # (Manual) Eosinophils # (Manual) Nucleated RBC % Basophils # (Manual) PT INR APTT Heparin Anti-Xa Level ABG pH POC ABG pO2 ABG pO2 ABG HCO3 ABG O2 Saturation ABG Base Excess POC ABG pCO2 ABG Hemoglobin ABG Oxyhemoglobin ABG Sodium ABG Chloride ABG Glucose Oxyhemoglobin Sodium Potassium Chloride Carbon Dioxide BUN Creatinine Glucose POC Glucose 137 H 145 H 181 H Lactic Acid Calcium Phosphorus Magnesium AST ALT Lactate Dehydrogenase Total Bilirubin Direct Bilirubin CK-MB (CK-2) C-Reactive Protein NT-Pro-B Natriuret Pep Total Protein Albumin Arterial Blood Glucose Urine WBC (Auto) Urine Creatinine Digoxin 02/02/20 02/02/20 02/02/20 10:01 12:05 17:54 WBC RBC Hgb Hct MCHC RDW MCV MCH Lymph % (Auto) [place] % (Auto) [place] # Eos # Lymph # (Auto) [place] # (Auto) Eos # (Auto) Seg Neutrophils % Seg Neuts % (Manual) Baso # (Auto) Lymphocytes % (Manual) Monocytes % (Manual) Eosinophils % (Manual) Basophils % (Manual) Seg Neutrophils # Seg Neutrophils # Man Lymphocytes # (Manual) Monocytes # (Manual) Eosinophils # (Manual) Nucleated RBC % Basophils # (Manual) PT INR APTT Heparin Anti-Xa Level ABG pH POC ABG pO2 ABG pO2 ABG HCO3 ABG O2 Saturation ABG Base Excess POC ABG pCO2 ABG Hemoglobin ABG Oxyhemoglobin ABG Sodium ABG Chloride ABG Glucose Oxyhemoglobin Sodium Potassium Chloride 95.3 L Carbon Dioxide BUN 44 H Creatinine Glucose 234 H POC Glucose 184 H 127 H Lactic Acid Calcium Phosphorus Magnesium AST 363 H ALT 457 H Lactate Dehydrogenase Total Bilirubin Direct Bilirubin CK-MB (CK-2) C-Reactive Protein NT-Pro-B Natriuret Pep Total Protein Albumin 3.0 L Arterial Blood Glucose Urine WBC (Auto) Urine Creatinine Digoxin 02/02/20 02/03/20 02/03/20 23:47 05:32 07:04 WBC 13.0 H RBC Hgb 9.5 L Hct 30.8 L MCHC 31 L RDW 19.6 H MCV 81 L MCH 25 L Lymph % (Auto) [place] % (Auto) 9.4 H [place] # Eos # Lymph # (Auto) [place] # (Auto) 1.2 H Eos # (Auto) Seg Neutrophils % 72.3 H Seg Neuts % (Manual) Baso # (Auto) Lymphocytes % (Manual) Monocytes % (Manual) Eosinophils % (Manual) Basophils % (Manual) Seg Neutrophils # 9.4 H Seg Neutrophils # Man Lymphocytes # (Manual) Monocytes # (Manual) Eosinophils # (Manual) Nucleated RBC % Basophils # (Manual) PT INR APTT Heparin Anti-Xa Level ABG pH POC ABG pO2 ABG pO2 ABG HCO3 ABG O2 Saturation ABG Base Excess POC ABG pCO2 ABG Hemoglobin ABG Oxyhemoglobin ABG Sodium ABG Chloride ABG Glucose Oxyhemoglobin Sodium Potassium Chloride Carbon Dioxide BUN Creatinine Glucose POC Glucose 124 H 129 H Lactic Acid Calcium Phosphorus Magnesium AST ALT Lactate Dehydrogenase Total Bilirubin Direct Bilirubin CK-MB (CK-2) C-Reactive Protein NT-Pro-B Natriuret Pep Total Protein Albumin Arterial Blood Glucose Urine WBC (Auto) Urine Creatinine Digoxin 02/03/20 02/03/20 02/03/20 07:04 11:32 12:49 WBC RBC Hgb Hct MCHC RDW MCV MCH Lymph % (Auto) [place] % (Auto) [place] # Eos # Lymph # (Auto) [place] # (Auto) Eos # (Auto) Seg Neutrophils % Seg Neuts % (Manual) Baso # (Auto) Lymphocytes % (Manual) Monocytes % (Manual) Eosinophils % (Manual) Basophils % (Manual) Seg Neutrophils # Seg Neutrophils # Man Lymphocytes # (Manual) Monocytes # (Manual) Eosinophils # (Manual) Nucleated RBC % Basophils # (Manual) PT INR APTT Heparin Anti-Xa Level ABG pH POC ABG pO2 ABG pO2 ABG HCO3 ABG O2 Saturation ABG Base Excess POC ABG pCO2 ABG Hemoglobin ABG Oxyhemoglobin ABG Sodium ABG Chloride ABG Glucose Oxyhemoglobin Sodium Potassium Chloride 97.9 L Carbon Dioxide 33 H BUN 39 H Creatinine Glucose 119 H POC Glucose 138 H Lactic Acid Calcium Phosphorus Magnesium 2.60 H AST ALT Lactate Dehydrogenase Total Bilirubin Direct Bilirubin CK-MB (CK-2) C-Reactive Protein NT-Pro-B Natriuret Pep Total Protein Albumin Arterial Blood Glucose Urine WBC (Auto) Urine Creatinine Digoxin 02/03/20 02/04/20 02/04/20 18:28 16:24 16:24 WBC RBC 3.38 L Hgb 8.6 L Hct 26.9 L MCHC RDW 19.5 H MCV 80 L MCH 26 L Lymph % (Auto) [place] % (Auto) [place] # Eos # Lymph # (Auto) [place] # (Auto) Eos # (Auto) Seg Neutrophils % Seg Neuts % (Manual) Baso # (Auto) Lymphocytes % (Manual) Monocytes % (Manual) Eosinophils % (Manual) Basophils % (Manual) Seg Neutrophils # Seg Neutrophils # Man Lymphocytes # (Manual) Monocytes # (Manual) Eosinophils # (Manual) Nucleated RBC % Basophils # (Manual) PT INR APTT Heparin Anti-Xa Level ABG pH POC ABG pO2 ABG pO2 ABG HCO3 ABG O2 Saturation ABG Base Excess POC ABG pCO2 ABG Hemoglobin ABG Oxyhemoglobin ABG Sodium ABG Chloride ABG Glucose Oxyhemoglobin Sodium Potassium 3.4 L Chloride Carbon Dioxide 31 H BUN 37 H Creatinine Glucose 70 L POC Glucose 118 H Lactic Acid Calcium Phosphorus Magnesium AST 169 H ALT 394 H Lactate Dehydrogenase Total Bilirubin 1.50 H Direct Bilirubin CK-MB (CK-2) C-Reactive Protein NT-Pro-B Natriuret Pep Total Protein Albumin 2.9 L Arterial Blood Glucose Urine WBC (Auto) Urine Creatinine Digoxin 02/05/20 02/05/20 02/05/20 00:41 06:37 17:14 WBC RBC Hgb Hct MCHC RDW MCV MCH Lymph % (Auto) [place] % (Auto) [place] # Eos # Lymph # (Auto) [place] # (Auto) Eos # (Auto) Seg Neutrophils % Seg Neuts % (Manual) Baso # (Auto) Lymphocytes % (Manual) Monocytes % (Manual) Eosinophils % (Manual) Basophils % (Manual) Seg Neutrophils # Seg Neutrophils # Man Lymphocytes # (Manual) Monocytes # (Manual) Eosinophils # (Manual) Nucleated RBC % Basophils # (Manual) PT INR APTT Heparin Anti-Xa Level ABG pH POC ABG pO2 ABG pO2 ABG HCO3 ABG O2 Saturation ABG Base Excess POC ABG pCO2 ABG Hemoglobin ABG Oxyhemoglobin ABG Sodium ABG Chloride ABG Glucose Oxyhemoglobin Sodium Potassium 3.1 L Chloride Carbon Dioxide 35 H BUN 32 H Creatinine 0.7 L Glucose POC Glucose 69 L 127 H Lactic Acid Calcium Phosphorus Magnesium AST 134 H ALT 352 H Lactate Dehydrogenase Total Bilirubin 1.60 H Direct Bilirubin CK-MB (CK-2) C-Reactive Protein NT-Pro-B Natriuret Pep Total Protein Albumin 2.9 L Arterial Blood Glucose Urine WBC (Auto) Urine Creatinine Digoxin 02/05/20 02/06/20 02/06/20 23:43 05:32 08:01 WBC RBC Hgb Hct MCHC RDW MCV MCH Lymph % (Auto) [place] % (Auto) [place] # Eos # Lymph # (Auto) [place] # (Auto) Eos # (Auto) Seg Neutrophils % Seg Neuts % (Manual) Baso # (Auto) Lymphocytes % (Manual) Monocytes % (Manual) Eosinophils % (Manual) Basophils % (Manual) Seg Neutrophils # Seg Neutrophils # Man Lymphocytes # (Manual) Monocytes # (Manual) Eosinophils # (Manual) Nucleated RBC % Basophils # (Manual) PT INR APTT Heparin Anti-Xa Level ABG pH POC ABG pO2 ABG pO2 ABG HCO3 ABG O2 Saturation ABG Base Excess POC ABG pCO2 ABG Hemoglobin ABG Oxyhemoglobin ABG Sodium ABG Chloride ABG Glucose Oxyhemoglobin Sodium Potassium Chloride Carbon Dioxide BUN 40 H Creatinine Glucose 132 H POC Glucose 129 H 131 H Lactic Acid Calcium Phosphorus Magnesium AST ALT Lactate Dehydrogenase Total Bilirubin Direct Bilirubin CK-MB (CK-2) C-Reactive Protein NT-Pro-B Natriuret Pep Total Protein Albumin Arterial Blood Glucose Urine WBC (Auto) Urine Creatinine Digoxin 02/06/20 02/06/20 02/06/20 11:51 16:28 17:32 WBC RBC Hgb Hct MCHC RDW MCV MCH Lymph % (Auto) [place] % (Auto) [place] # Eos # Lymph # (Auto) [place] # (Auto) Eos # (Auto) Seg Neutrophils % Seg Neuts % (Manual) Baso # (Auto) Lymphocytes % (Manual) Monocytes % (Manual) Eosinophils % (Manual) Basophils % (Manual) Seg Neutrophils # Seg Neutrophils # Man Lymphocytes # (Manual) Monocytes # (Manual) Eosinophils # (Manual) Nucleated RBC % Basophils # (Manual) PT INR APTT Heparin Anti-Xa Level ABG pH POC ABG pO2 ABG pO2 ABG HCO3 ABG O2 Saturation ABG Base Excess POC ABG pCO2 ABG Hemoglobin ABG Oxyhemoglobin ABG Sodium ABG Chloride ABG Glucose Oxyhemoglobin Sodium Potassium Chloride Carbon Dioxide BUN Creatinine Glucose POC Glucose 167 H 129 H Lactic Acid Calcium Phosphorus Magnesium AST 824 H ALT 948 H Lactate Dehydrogenase Total Bilirubin 1.70 H Direct Bilirubin 1.2 H CK-MB (CK-2) C-Reactive Protein NT-Pro-B Natriuret Pep Total Protein Albumin 2.9 L Arterial Blood Glucose Urine WBC (Auto) Urine Creatinine Digoxin 02/07/20 02/07/20 02/07/20 00:11 04:57 04:57 WBC RBC Hgb 9.2 L Hct 29.7 L MCHC 31 L RDW 20.2 H MCV 80 L MCH 25 L Lymph % (Auto) [place] % (Auto) [place] # Eos # Lymph # (Auto) [place] # (Auto) Eos # (Auto) Seg Neutrophils % Seg Neuts % (Manual) Baso # (Auto) Lymphocytes % (Manual) Monocytes % (Manual) Eosinophils % (Manual) Basophils % (Manual) Seg Neutrophils # Seg Neutrophils # Man Lymphocytes # (Manual) Monocytes # (Manual) Eosinophils # (Manual) Nucleated RBC % Basophils # (Manual) PT INR APTT Heparin Anti-Xa Level ABG pH POC ABG pO2 ABG pO2 ABG HCO3 ABG O2 Saturation ABG Base Excess POC ABG pCO2 ABG Hemoglobin ABG Oxyhemoglobin ABG Sodium ABG Chloride ABG Glucose Oxyhemoglobin Sodium Potassium 3.4 L D Chloride Carbon Dioxide 32 H BUN 39 H Creatinine Glucose 106 H POC Glucose 121 H Lactic Acid Calcium Phosphorus Magnesium AST ALT Lactate Dehydrogenase Total Bilirubin Direct Bilirubin CK-MB (CK-2) C-Reactive Protein NT-Pro-B Natriuret Pep Total Protein Albumin Arterial Blood Glucose Urine WBC (Auto) Urine Creatinine Digoxin 02/07/20 02/07/20 02/07/20 15:03 15:03 17:11 WBC RBC Hgb Hct MCHC RDW MCV MCH Lymph % (Auto) [place] % (Auto) [place] # Eos # Lymph # (Auto) [place] # (Auto) Eos # (Auto) Seg Neutrophils % Seg Neuts % (Manual) Baso # (Auto) Lymphocytes % (Manual) Monocytes % (Manual) Eosinophils % (Manual) Basophils % (Manual) Seg Neutrophils # Seg Neutrophils # Man Lymphocytes # (Manual) Monocytes # (Manual) Eosinophils # (Manual) Nucleated RBC % Basophils # (Manual) PT 27.0 H INR 2.46 H APTT Heparin Anti-Xa Level ABG pH POC ABG pO2 ABG pO2 ABG HCO3 ABG O2 Saturation ABG Base Excess POC ABG pCO2 ABG Hemoglobin ABG Oxyhemoglobin ABG Sodium ABG Chloride ABG Glucose Oxyhemoglobin Sodium Potassium Chloride Carbon Dioxide BUN Creatinine Glucose POC Glucose 109 H Lactic Acid Calcium Phosphorus Magnesium AST 424 H ALT 796 H Lactate Dehydrogenase Total Bilirubin 1.60 H Direct Bilirubin 1.2 H CK-MB (CK-2) C-Reactive Protein NT-Pro-B Natriuret Pep Total Protein Albumin 2.9 L Arterial Blood Glucose Urine WBC (Auto) Urine Creatinine Digoxin 02/08/20 02/08/20 02/08/20 12:14 17:44 19:00 WBC RBC Hgb Hct MCHC RDW MCV MCH Lymph % (Auto) [place] % (Auto) [place] # Eos # Lymph # (Auto) [place] # (Auto) Eos # (Auto) Seg Neutrophils % Seg Neuts % (Manual) Baso # (Auto) Lymphocytes % (Manual) Monocytes % (Manual) Eosinophils % (Manual) Basophils % (Manual) Seg Neutrophils # Seg Neutrophils # Man Lymphocytes # (Manual) Monocytes # (Manual) Eosinophils # (Manual) Nucleated RBC % Basophils # (Manual) PT INR APTT Heparin Anti-Xa Level ABG pH POC ABG pO2 ABG pO2 ABG HCO3 ABG O2 Saturation ABG Base Excess POC ABG pCO2 ABG Hemoglobin ABG Oxyhemoglobin ABG Sodium ABG Chloride ABG Glucose Oxyhemoglobin Sodium Potassium Chloride Carbon Dioxide BUN Creatinine Glucose POC Glucose 111 H 107 H Lactic Acid Calcium Phosphorus Magnesium AST 309 H ALT 650 H Lactate Dehydrogenase Total Bilirubin 1.30 H Direct Bilirubin 0.9 H CK-MB (CK-2) C-Reactive Protein NT-Pro-B Natriuret Pep Total Protein 6.2 L Albumin 2.7 L Arterial Blood Glucose Urine WBC (Auto) Urine Creatinine Digoxin 02/09/20 02/09/20 02/09/20 05:41 12:28 18:07 WBC RBC Hgb Hct MCHC RDW MCV MCH Lymph % (Auto) [place] % (Auto) [place] # Eos # Lymph # (Auto) [place] # (Auto) Eos # (Auto) Seg Neutrophils % Seg Neuts % (Manual) Baso # (Auto) Lymphocytes % (Manual) Monocytes % (Manual) Eosinophils % (Manual) Basophils % (Manual) Seg Neutrophils # Seg Neutrophils # Man Lymphocytes # (Manual) Monocytes # (Manual) Eosinophils # (Manual) Nucleated RBC % Basophils # (Manual) PT INR APTT Heparin Anti-Xa Level ABG pH POC ABG pO2 ABG pO2 ABG HCO3 ABG O2 Saturation ABG Base Excess POC ABG pCO2 ABG Hemoglobin ABG Oxyhemoglobin ABG Sodium ABG Chloride ABG Glucose Oxyhemoglobin Sodium Potassium Chloride Carbon Dioxide BUN Creatinine Glucose POC Glucose 113 H 140 H 143 H Lactic Acid Calcium Phosphorus Magnesium AST ALT Lactate Dehydrogenase Total Bilirubin Direct Bilirubin CK-MB (CK-2) C-Reactive Protein NT-Pro-B Natriuret Pep Total Protein Albumin Arterial Blood Glucose Urine WBC (Auto) Urine Creatinine Digoxin 02/09/20 02/09/20 02/10/20 21:40 23:45 06:00 WBC RBC Hgb Hct MCHC RDW MCV MCH Lymph % (Auto) [place] % (Auto) [place] # Eos # Lymph # (Auto) [place] # (Auto) Eos # (Auto) Seg Neutrophils % Seg Neuts % (Manual) Baso # (Auto) Lymphocytes % (Manual) Monocytes % (Manual) Eosinophils % (Manual) Basophils % (Manual) Seg Neutrophils # Seg Neutrophils # Man Lymphocytes # (Manual) Monocytes # (Manual) Eosinophils # (Manual) Nucleated RBC % Basophils # (Manual) PT INR APTT Heparin Anti-Xa Level ABG pH POC ABG pO2 ABG pO2 59.8 L ABG HCO3 33.3 H ABG O2 Saturation 88.9 L ABG Base Excess 7.4 H POC ABG pCO2 ABG Hemoglobin 10.4 L ABG Oxyhemoglobin ABG Sodium ABG Chloride ABG Glucose Oxyhemoglobin 86.3 L Sodium Potassium Chloride Carbon Dioxide BUN Creatinine Glucose POC Glucose 127 H 114 H Lactic Acid Calcium Phosphorus Magnesium AST ALT Lactate Dehydrogenase Total Bilirubin Direct Bilirubin CK-MB (CK-2) C-Reactive Protein NT-Pro-B Natriuret Pep Total Protein Albumin Arterial Blood Glucose Urine WBC (Auto) Urine Creatinine Digoxin 02/10/20 02/10/20 02/10/20 07:40 07:40 13:38 WBC 11.5 H RBC Hgb 10.6 L Hct 34.7 L MCHC 31 L RDW 19.8 H MCV 79 L MCH 24 L Lymph % (Auto) [place] % (Auto) 9.2 H [place] # Eos # Lymph # (Auto) [place] # (Auto) 1.1 H Eos # (Auto) Seg Neutrophils % Seg Neuts % (Manual) Baso # (Auto) Lymphocytes % (Manual) Monocytes % (Manual) Eosinophils % (Manual) Basophils % (Manual) Seg Neutrophils # Seg Neutrophils # Man Lymphocytes # (Manual) Monocytes # (Manual) Eosinophils # (Manual) Nucleated RBC % Basophils # (Manual) PT INR APTT Heparin Anti-Xa Level ABG pH POC ABG pO2 ABG pO2 ABG HCO3 ABG O2 Saturation ABG Base Excess POC ABG pCO2 ABG Hemoglobin ABG Oxyhemoglobin ABG Sodium ABG Chloride ABG Glucose Oxyhemoglobin Sodium 151 H Potassium Chloride 107.2 H Carbon Dioxide 36 H BUN 25 H Creatinine 0.7 L Glucose 114 H POC Glucose 116 H Lactic Acid Calcium Phosphorus Magnesium 2.40 H AST ALT Lactate Dehydrogenase Total Bilirubin Direct Bilirubin CK-MB (CK-2) C-Reactive Protein NT-Pro-B Natriuret Pep Total Protein Albumin Arterial Blood Glucose Urine WBC (Auto) Urine Creatinine Digoxin 02/10/20 02/11/20 02/11/20 17:44 05:47 12:21 WBC RBC Hgb Hct MCHC RDW MCV MCH Lymph % (Auto) [place] % (Auto) [place] # Eos # Lymph # (Auto) [place] # (Auto) Eos # (Auto) Seg Neutrophils % Seg Neuts % (Manual) Baso # (Auto) Lymphocytes % (Manual) Monocytes % (Manual) Eosinophils % (Manual) Basophils % (Manual) Seg Neutrophils # Seg Neutrophils # Man Lymphocytes # (Manual) Monocytes # (Manual) Eosinophils # (Manual) Nucleated RBC % Basophils # (Manual) PT INR APTT Heparin Anti-Xa Level ABG pH POC ABG pO2 ABG pO2 ABG HCO3 ABG O2 Saturation ABG Base Excess POC ABG pCO2 ABG Hemoglobin ABG Oxyhemoglobin ABG Sodium ABG Chloride ABG Glucose Oxyhemoglobin Sodium Potassium Chloride Carbon Dioxide BUN Creatinine Glucose POC Glucose 139 H 173 H 143 H Lactic Acid Calcium Phosphorus Magnesium AST ALT Lactate Dehydrogenase Total Bilirubin Direct Bilirubin CK-MB (CK-2) C-Reactive Protein NT-Pro-B Natriuret Pep Total Protein Albumin Arterial Blood Glucose Urine WBC (Auto) Urine Creatinine Digoxin 02/11/20 02/11/20 02/12/20 13:43 14:11 00:15 WBC RBC Hgb Hct MCHC RDW MCV MCH Lymph % (Auto) [place] % (Auto) [place] # Eos # Lymph # (Auto) [place] # (Auto) Eos # (Auto) Seg Neutrophils % Seg Neuts % (Manual) Baso # (Auto) Lymphocytes % (Manual) Monocytes % (Manual) Eosinophils % (Manual) Basophils % (Manual) Seg Neutrophils # Seg Neutrophils # Man Lymphocytes # (Manual) Monocytes # (Manual) Eosinophils # (Manual) Nucleated RBC % Basophils # (Manual) PT INR APTT Heparin Anti-Xa Level ABG pH 7.502 H POC ABG pO2 77.7 L ABG pO2 ABG HCO3 ABG O2 Saturation ABG Base Excess POC ABG pCO2 ABG Hemoglobin 11.1 L ABG Oxyhemoglobin ABG Sodium ABG Chloride 108.0 H ABG Glucose 151 H Oxyhemoglobin Sodium Potassium Chloride Carbon Dioxide BUN Creatinine Glucose POC Glucose 130 H 125 H Lactic Acid Calcium Phosphorus Magnesium AST ALT Lactate Dehydrogenase Total Bilirubin Direct Bilirubin CK-MB (CK-2) C-Reactive Protein NT-Pro-B Natriuret Pep Total Protein Albumin Arterial Blood Glucose 151 H Urine WBC (Auto) Urine Creatinine Digoxin 02/12/20 02/12/20 02/12/20 04:56 04:56 17:42 WBC RBC Hgb 9.9 L Hct 31.8 L MCHC 31 L RDW 19.4 H MCV 79 L MCH 25 L Lymph % (Auto) [place] % (Auto) 10.3 H [place] # Eos # Lymph # (Auto) [place] # (Auto) 1.0 H Eos # (Auto) Seg Neutrophils % Seg Neuts % (Manual) Baso # (Auto) Lymphocytes % (Manual) Monocytes % (Manual) Eosinophils % (Manual) Basophils % (Manual) Seg Neutrophils # Seg Neutrophils # Man Lymphocytes # (Manual) Monocytes # (Manual) Eosinophils # (Manual) Nucleated RBC % Basophils # (Manual) PT INR APTT Heparin Anti-Xa Level ABG pH POC ABG pO2 ABG pO2 ABG HCO3 ABG O2 Saturation ABG Base Excess POC ABG pCO2 ABG Hemoglobin ABG Oxyhemoglobin ABG Sodium ABG Chloride ABG Glucose Oxyhemoglobin Sodium 149 H Potassium Chloride 108.6 H Carbon Dioxide BUN 28 H Creatinine 0.7 L Glucose 108 H POC Glucose 113 H Lactic Acid Calcium Phosphorus Magnesium AST ALT Lactate Dehydrogenase Total Bilirubin Direct Bilirubin CK-MB (CK-2) C-Reactive Protein NT-Pro-B Natriuret Pep Total Protein Albumin Arterial Blood Glucose Urine WBC (Auto) Urine Creatinine Digoxin 02/13/20 02/13/20 02/13/20 00:39 05:36 12:25 WBC RBC Hgb Hct MCHC RDW MCV MCH Lymph % (Auto) [place] % (Auto) [place] # Eos # Lymph # (Auto) [place] # (Auto) Eos # (Auto) Seg Neutrophils % Seg Neuts % (Manual) Baso # (Auto) Lymphocytes % (Manual) Monocytes % (Manual) Eosinophils % (Manual) Basophils % (Manual) Seg Neutrophils # Seg Neutrophils # Man Lymphocytes # (Manual) Monocytes # (Manual) Eosinophils # (Manual) Nucleated RBC % Basophils # (Manual) PT INR APTT Heparin Anti-Xa Level ABG pH POC ABG pO2 ABG pO2 ABG HCO3 ABG O2 Saturation ABG Base Excess POC ABG pCO2 ABG Hemoglobin ABG Oxyhemoglobin ABG Sodium ABG Chloride ABG Glucose Oxyhemoglobin Sodium Potassium Chloride Carbon Dioxide BUN Creatinine Glucose POC Glucose 129 H 126 H 129 H Lactic Acid Calcium Phosphorus Magnesium AST ALT Lactate Dehydrogenase Total Bilirubin Direct Bilirubin CK-MB (CK-2) C-Reactive Protein NT-Pro-B Natriuret Pep Total Protein Albumin Arterial Blood Glucose Urine WBC (Auto) Urine Creatinine Digoxin 02/13/20 02/14/20 02/14/20 17:59 00:15 05:41 WBC RBC Hgb Hct MCHC RDW MCV MCH Lymph % (Auto) [place] % (Auto) [place] # Eos # Lymph # (Auto) [place] # (Auto) Eos # (Auto) Seg Neutrophils % Seg Neuts % (Manual) Baso # (Auto) Lymphocytes % (Manual) Monocytes % (Manual) Eosinophils % (Manual) Basophils % (Manual) Seg Neutrophils # Seg Neutrophils # Man Lymphocytes # (Manual) Monocytes # (Manual) Eosinophils # (Manual) Nucleated RBC % Basophils # (Manual) PT INR APTT Heparin Anti-Xa Level ABG pH POC ABG pO2 ABG pO2 ABG HCO3 ABG O2 Saturation ABG Base Excess POC ABG pCO2 ABG Hemoglobin ABG Oxyhemoglobin ABG Sodium ABG Chloride ABG Glucose Oxyhemoglobin Sodium Potassium Chloride Carbon Dioxide BUN Creatinine Glucose POC Glucose 153 H 130 H 130 H Lactic Acid Calcium Phosphorus Magnesium AST ALT Lactate Dehydrogenase Total Bilirubin Direct Bilirubin CK-MB (CK-2) C-Reactive Protein NT-Pro-B Natriuret Pep Total Protein Albumin Arterial Blood Glucose Urine WBC (Auto) Urine Creatinine Digoxin 02/14/20 02/15/20 02/15/20 11:32 00:12 05:27 WBC RBC Hgb Hct MCHC RDW MCV MCH Lymph % (Auto) [place] % (Auto) [place] # Eos # Lymph # (Auto) [place] # (Auto) Eos # (Auto) Seg Neutrophils % Seg Neuts % (Manual) Baso # (Auto) Lymphocytes % (Manual) Monocytes % (Manual) Eosinophils % (Manual) Basophils % (Manual) Seg Neutrophils # Seg Neutrophils # Man Lymphocytes # (Manual) Monocytes # (Manual) Eosinophils # (Manual) Nucleated RBC % Basophils # (Manual) PT INR APTT Heparin Anti-Xa Level ABG pH POC ABG pO2 ABG pO2 ABG HCO3 ABG O2 Saturation ABG Base Excess POC ABG pCO2 ABG Hemoglobin ABG Oxyhemoglobin ABG Sodium ABG Chloride ABG Glucose Oxyhemoglobin Sodium Potassium Chloride Carbon Dioxide BUN Creatinine Glucose POC Glucose 157 H 124 H 111 H Lactic Acid Calcium Phosphorus Magnesium AST ALT Lactate Dehydrogenase Total Bilirubin Direct Bilirubin CK-MB (CK-2) C-Reactive Protein NT-Pro-B Natriuret Pep Total Protein Albumin Arterial Blood Glucose Urine WBC (Auto) Urine Creatinine Digoxin 02/15/20 02/15/20 02/15/20 06:59 06:59 11:14 WBC RBC Hgb 10.4 L Hct 33.7 L MCHC 31 L RDW 19.4 H MCV 80 L MCH 24 L Lymph % (Auto) [place] % (Auto) [place] # Eos # Lymph # (Auto) [place] # (Auto) Eos # (Auto) Seg Neutrophils % Seg Neuts % (Manual) Baso # (Auto) Lymphocytes % (Manual) Monocytes % (Manual) Eosinophils % (Manual) Basophils % (Manual) 2.0 H Seg Neutrophils # Seg Neutrophils # Man Lymphocytes # (Manual) Monocytes # (Manual) Eosinophils # (Manual) Nucleated RBC % 1.0 H Basophils # (Manual) 0.2 H PT INR APTT Heparin Anti-Xa Level ABG pH POC ABG pO2 ABG pO2 ABG HCO3 ABG O2 Saturation ABG Base Excess POC ABG pCO2 ABG Hemoglobin ABG Oxyhemoglobin ABG Sodium ABG Chloride ABG Glucose Oxyhemoglobin Sodium 149 H Potassium Chloride 108.4 H Carbon Dioxide 31 H BUN 40 H Creatinine 0.7 L Glucose 150 H POC Glucose 128 H Lactic Acid Calcium Phosphorus Magnesium AST ALT Lactate Dehydrogenase Total Bilirubin Direct Bilirubin CK-MB (CK-2) C-Reactive Protein NT-Pro-B Natriuret Pep Total Protein Albumin Arterial Blood Glucose Urine WBC (Auto) Urine Creatinine Digoxin 02/15/20 02/15/20 02/16/20 17:46 23:50 05:03 WBC RBC Hgb Hct MCHC RDW MCV MCH Lymph % (Auto) [place] % (Auto) [place] # Eos # Lymph # (Auto) [place] # (Auto) Eos # (Auto) Seg Neutrophils % Seg Neuts % (Manual) Baso # (Auto) Lymphocytes % (Manual) Monocytes % (Manual) Eosinophils % (Manual) Basophils % (Manual) Seg Neutrophils # Seg Neutrophils # Man Lymphocytes # (Manual) Monocytes # (Manual) Eosinophils # (Manual) Nucleated RBC % Basophils # (Manual) PT INR APTT Heparin Anti-Xa Level ABG pH POC ABG pO2 ABG pO2 ABG HCO3 ABG O2 Saturation ABG Base Excess POC ABG pCO2 ABG Hemoglobin ABG Oxyhemoglobin ABG Sodium ABG Chloride ABG Glucose Oxyhemoglobin Sodium Potassium Chloride Carbon Dioxide BUN Creatinine Glucose POC Glucose 154 H 135 H 148 H Lactic Acid Calcium Phosphorus Magnesium AST ALT Lactate Dehydrogenase Total Bilirubin Direct Bilirubin CK-MB (CK-2) C-Reactive Protein NT-Pro-B Natriuret Pep Total Protein Albumin Arterial Blood Glucose Urine WBC (Auto) Urine Creatinine Digoxin 02/16/20 02/16/20 02/16/20 07:53 11:28 17:52 WBC RBC Hgb Hct MCHC RDW MCV MCH Lymph % (Auto) [place] % (Auto) [place] # Eos # Lymph # (Auto) [place] # (Auto) Eos # (Auto) Seg Neutrophils % Seg Neuts % (Manual) Baso # (Auto) Lymphocytes % (Manual) Monocytes % (Manual) Eosinophils % (Manual) Basophils % (Manual) Seg Neutrophils # Seg Neutrophils # Man Lymphocytes # (Manual) Monocytes # (Manual) Eosinophils # (Manual) Nucleated RBC % Basophils # (Manual) PT INR APTT Heparin Anti-Xa Level ABG pH POC ABG pO2 ABG pO2 ABG HCO3 ABG O2 Saturation ABG Base Excess POC ABG pCO2 ABG Hemoglobin ABG Oxyhemoglobin ABG Sodium ABG Chloride ABG Glucose Oxyhemoglobin Sodium Potassium Chloride 107.9 H Carbon Dioxide BUN 38 H Creatinine 0.6 L Glucose 151 H POC Glucose 123 H 152 H Lactic Acid Calcium Phosphorus Magnesium AST ALT Lactate Dehydrogenase Total Bilirubin Direct Bilirubin CK-MB (CK-2) C-Reactive Protein NT-Pro-B Natriuret Pep Total Protein Albumin Arterial Blood Glucose Urine WBC (Auto) Urine Creatinine Digoxin 02/16/20 02/17/20 02/17/20 23:49 06:24 11:36 WBC RBC Hgb Hct MCHC RDW MCV MCH Lymph % (Auto) [place] % (Auto) [place] # Eos # Lymph # (Auto) [place] # (Auto) Eos # (Auto) Seg Neutrophils % Seg Neuts % (Manual) Baso # (Auto) Lymphocytes % (Manual) Monocytes % (Manual) Eosinophils % (Manual) Basophils % (Manual) Seg Neutrophils # Seg Neutrophils # Man Lymphocytes # (Manual) Monocytes # (Manual) Eosinophils # (Manual) Nucleated RBC % Basophils # (Manual) PT INR APTT Heparin Anti-Xa Level ABG pH POC ABG pO2 ABG pO2 ABG HCO3 ABG O2 Saturation ABG Base Excess POC ABG pCO2 ABG Hemoglobin ABG Oxyhemoglobin ABG Sodium ABG Chloride ABG Glucose Oxyhemoglobin Sodium Potassium Chloride Carbon Dioxide BUN Creatinine Glucose POC Glucose 156 H 193 H 162 H Lactic Acid Calcium Phosphorus Magnesium AST ALT Lactate Dehydrogenase Total Bilirubin Direct Bilirubin CK-MB (CK-2) C-Reactive Protein NT-Pro-B Natriuret Pep Total Protein Albumin Arterial Blood Glucose Urine WBC (Auto) Urine Creatinine Digoxin 02/17/20 02/17/20 02/18/20 17:55 23:28 05:11 WBC RBC Hgb Hct MCHC RDW MCV MCH Lymph % (Auto) [place] % (Auto) [place] # Eos # Lymph # (Auto) [place] # (Auto) Eos # (Auto) Seg Neutrophils % Seg Neuts % (Manual) Baso # (Auto) Lymphocytes % (Manual) Monocytes % (Manual) Eosinophils % (Manual) Basophils % (Manual) Seg Neutrophils # Seg Neutrophils # Man Lymphocytes # (Manual) Monocytes # (Manual) Eosinophils # (Manual) Nucleated RBC % Basophils # (Manual) PT INR APTT Heparin Anti-Xa Level ABG pH POC ABG pO2 ABG pO2 ABG HCO3 ABG O2 Saturation ABG Base Excess POC ABG pCO2 ABG Hemoglobin ABG Oxyhemoglobin ABG Sodium ABG Chloride ABG Glucose Oxyhemoglobin Sodium Potassium Chloride Carbon Dioxide BUN Creatinine Glucose POC Glucose 165 H 146 H 122 H Lactic Acid Calcium Phosphorus Magnesium AST ALT Lactate Dehydrogenase Total Bilirubin Direct Bilirubin CK-MB (CK-2) C-Reactive Protein NT-Pro-B Natriuret Pep Total Protein Albumin Arterial Blood Glucose Urine WBC (Auto) Urine Creatinine Digoxin 02/18/20 02/18/20 02/19/20 12:24 17:29 00:01 WBC RBC Hgb Hct MCHC RDW MCV MCH Lymph % (Auto) [place] % (Auto) [place] # Eos # Lymph # (Auto) [place] # (Auto) Eos # (Auto) Seg Neutrophils % Seg Neuts % (Manual) Baso # (Auto) Lymphocytes % (Manual) Monocytes % (Manual) Eosinophils % (Manual) Basophils % (Manual) Seg Neutrophils # Seg Neutrophils # Man Lymphocytes # (Manual) Monocytes # (Manual) Eosinophils # (Manual) Nucleated RBC % Basophils # (Manual) PT INR APTT Heparin Anti-Xa Level ABG pH POC ABG pO2 ABG pO2 ABG HCO3 ABG O2 Saturation ABG Base Excess POC ABG pCO2 ABG Hemoglobin ABG Oxyhemoglobin ABG Sodium ABG Chloride ABG Glucose Oxyhemoglobin Sodium Potassium Chloride Carbon Dioxide BUN Creatinine Glucose POC Glucose 162 H 136 H 145 H Lactic Acid Calcium Phosphorus Magnesium AST ALT Lactate Dehydrogenase Total Bilirubin Direct Bilirubin CK-MB (CK-2) C-Reactive Protein NT-Pro-B Natriuret Pep Total Protein Albumin Arterial Blood Glucose Urine WBC (Auto) Urine Creatinine Digoxin 02/19/20 02/19/20 02/19/20 05:53 11:44 17:32 WBC RBC Hgb Hct MCHC RDW MCV MCH Lymph % (Auto) [place] % (Auto) [place] # Eos # Lymph # (Auto) [place] # (Auto) Eos # (Auto) Seg Neutrophils % Seg Neuts % (Manual) Baso # (Auto) Lymphocytes % (Manual) Monocytes % (Manual) Eosinophils % (Manual) Basophils % (Manual) Seg Neutrophils # Seg Neutrophils # Man Lymphocytes # (Manual) Monocytes # (Manual) Eosinophils # (Manual) Nucleated RBC % Basophils # (Manual) PT INR APTT Heparin Anti-Xa Level ABG pH POC ABG pO2 ABG pO2 ABG HCO3 ABG O2 Saturation ABG Base Excess POC ABG pCO2 ABG Hemoglobin ABG Oxyhemoglobin ABG Sodium ABG Chloride ABG Glucose Oxyhemoglobin Sodium Potassium Chloride Carbon Dioxide BUN Creatinine Glucose POC Glucose 116 H 120 H 154 H Lactic Acid Calcium Phosphorus Magnesium AST ALT Lactate Dehydrogenase Total Bilirubin Direct Bilirubin CK-MB (CK-2) C-Reactive Protein NT-Pro-B Natriuret Pep Total Protein Albumin Arterial Blood Glucose Urine WBC (Auto) Urine Creatinine Digoxin 02/19/20 02/20/20 02/20/20 23:43 00:24 00:24 WBC RBC Hgb 9.4 L Hct 30.0 L MCHC 31 L RDW 20.4 H MCV 79 L MCH 25 L Lymph % (Auto) [place] % (Auto) 8.5 H [place] # Eos # Lymph # (Auto) [place] # (Auto) Eos # (Auto) Seg Neutrophils % Seg Neuts % (Manual) Baso # (Auto) Lymphocytes % (Manual) Monocytes % (Manual) Eosinophils % (Manual) Basophils % (Manual) Seg Neutrophils # Seg Neutrophils # Man Lymphocytes # (Manual) Monocytes # (Manual) Eosinophils # (Manual) Nucleated RBC % Basophils # (Manual) PT INR APTT Heparin Anti-Xa Level ABG pH POC ABG pO2 ABG pO2 ABG HCO3 ABG O2 Saturation ABG Base Excess POC ABG pCO2 ABG Hemoglobin ABG Oxyhemoglobin ABG Sodium ABG Chloride ABG Glucose Oxyhemoglobin Sodium 147 H Potassium 3.4 L Chloride Carbon Dioxide 31 H BUN 34 H Creatinine 0.5 L Glucose 135 H POC Glucose 122 H Lactic Acid Calcium Phosphorus Magnesium AST ALT Lactate Dehydrogenase Total Bilirubin Direct Bilirubin CK-MB (CK-2) C-Reactive Protein NT-Pro-B Natriuret Pep Total Protein Albumin Arterial Blood Glucose Urine WBC (Auto) Urine Creatinine Digoxin 02/20/20 02/20/20 02/20/20 06:07 06:45 12:03 WBC RBC Hgb Hct MCHC RDW MCV MCH Lymph % (Auto) [place] % (Auto) [place] # Eos # Lymph # (Auto) [place] # (Auto) Eos # (Auto) Seg Neutrophils % Seg Neuts % (Manual) Baso # (Auto) Lymphocytes % (Manual) Monocytes % (Manual) Eosinophils % (Manual) Basophils % (Manual) Seg Neutrophils # Seg Neutrophils # Man Lymphocytes # (Manual) Monocytes # (Manual) Eosinophils # (Manual) Nucleated RBC % Basophils # (Manual) PT INR APTT Heparin Anti-Xa Level ABG pH 7.461 H POC ABG pO2 ABG pO2 ABG HCO3 33.3 H ABG O2 Saturation ABG Base Excess 8.4 H POC ABG pCO2 ABG Hemoglobin 10.0 L ABG Oxyhemoglobin ABG Sodium ABG Chloride ABG Glucose Oxyhemoglobin 94.1 L Sodium Potassium Chloride Carbon Dioxide BUN Creatinine Glucose POC Glucose 109 H 128 H Lactic Acid Calcium Phosphorus Magnesium AST ALT Lactate Dehydrogenase Total Bilirubin Direct Bilirubin CK-MB (CK-2) C-Reactive Protein NT-Pro-B Natriuret Pep Total Protein Albumin Arterial Blood Glucose Urine WBC (Auto) Urine Creatinine Digoxin 02/20/20 02/20/20 02/21/20 18:02 23:55 05:42 WBC RBC Hgb Hct MCHC RDW MCV MCH Lymph % (Auto) [place] % (Auto) [place] # Eos # Lymph # (Auto) [place] # (Auto) Eos # (Auto) Seg Neutrophils % Seg Neuts % (Manual) Baso # (Auto) Lymphocytes % (Manual) Monocytes % (Manual) Eosinophils % (Manual) Basophils % (Manual) Seg Neutrophils # Seg Neutrophils # Man Lymphocytes # (Manual) Monocytes # (Manual) Eosinophils # (Manual) Nucleated RBC % Basophils # (Manual) PT INR APTT Heparin Anti-Xa Level ABG pH POC ABG pO2 ABG pO2 ABG HCO3 ABG O2 Saturation ABG Base Excess POC ABG pCO2 ABG Hemoglobin ABG Oxyhemoglobin ABG Sodium ABG Chloride ABG Glucose Oxyhemoglobin Sodium Potassium Chloride Carbon Dioxide BUN Creatinine Glucose POC Glucose 118 H 125 H 127 H Lactic Acid Calcium Phosphorus Magnesium AST ALT Lactate Dehydrogenase Total Bilirubin Direct Bilirubin CK-MB (CK-2) C-Reactive Protein NT-Pro-B Natriuret Pep Total Protein Albumin Arterial Blood Glucose Urine WBC (Auto) Urine Creatinine Digoxin 02/21/20 02/21/20 02/21/20 12:10 17:35 23:40 WBC RBC Hgb Hct MCHC RDW MCV MCH Lymph % (Auto) [place] % (Auto) [place] # Eos # Lymph # (Auto) [place] # (Auto) Eos # (Auto) Seg Neutrophils % Seg Neuts % (Manual) Baso # (Auto) Lymphocytes % (Manual) Monocytes % (Manual) Eosinophils % (Manual) Basophils % (Manual) Seg Neutrophils # Seg Neutrophils # Man Lymphocytes # (Manual) Monocytes # (Manual) Eosinophils # (Manual) Nucleated RBC % Basophils # (Manual) PT INR APTT Heparin Anti-Xa Level ABG pH POC ABG pO2 ABG pO2 ABG HCO3 ABG O2 Saturation ABG Base Excess POC ABG pCO2 ABG Hemoglobin ABG Oxyhemoglobin ABG Sodium ABG Chloride ABG Glucose Oxyhemoglobin Sodium Potassium Chloride Carbon Dioxide BUN Creatinine Glucose POC Glucose 128 H 113 H 125 H Lactic Acid Calcium Phosphorus Magnesium AST ALT Lactate Dehydrogenase Total Bilirubin Direct Bilirubin CK-MB (CK-2) C-Reactive Protein NT-Pro-B Natriuret Pep Total Protein Albumin Arterial Blood Glucose Urine WBC (Auto) Urine Creatinine Digoxin 02/22/20 02/22/20 02/22/20 05:57 08:06 08:06 WBC RBC Hgb 10.8 L Hct 35.2 L MCHC 31 L RDW 21.8 H MCV 80 L MCH 25 L Lymph % (Auto) [place] % (Auto) [place] # Eos # Lymph # (Auto) [place] # (Auto) Eos # (Auto) Seg Neutrophils % 71.5 H Seg Neuts % (Manual) Baso # (Auto) Lymphocytes % (Manual) Monocytes % (Manual) Eosinophils % (Manual) Basophils % (Manual) Seg Neutrophils # Seg Neutrophils # Man Lymphocytes # (Manual) Monocytes # (Manual) Eosinophils # (Manual) Nucleated RBC % Basophils # (Manual) PT INR APTT Heparin Anti-Xa Level ABG pH POC ABG pO2 ABG pO2 ABG HCO3 ABG O2 Saturation ABG Base Excess POC ABG pCO2 ABG Hemoglobin ABG Oxyhemoglobin ABG Sodium ABG Chloride ABG Glucose Oxyhemoglobin Sodium 146 H Potassium Chloride Carbon Dioxide 34 H BUN 21 H Creatinine 0.4 L Glucose 149 H POC Glucose 138 H Lactic Acid Calcium Phosphorus Magnesium AST ALT Lactate Dehydrogenase Total Bilirubin Direct Bilirubin CK-MB (CK-2) C-Reactive Protein NT-Pro-B Natriuret Pep Total Protein Albumin Arterial Blood Glucose Urine WBC (Auto) Urine Creatinine Digoxin 02/22/20 02/22/20 02/22/20 11:47 17:11 23:25 WBC RBC Hgb Hct MCHC RDW MCV MCH Lymph % (Auto) [place] % (Auto) [place] # Eos # Lymph # (Auto) [place] # (Auto) Eos # (Auto) Seg Neutrophils % Seg Neuts % (Manual) Baso # (Auto) Lymphocytes % (Manual) Monocytes % (Manual) Eosinophils % (Manual) Basophils % (Manual) Seg Neutrophils # Seg Neutrophils # Man Lymphocytes # (Manual) Monocytes # (Manual) Eosinophils # (Manual) Nucleated RBC % Basophils # (Manual) PT INR APTT Heparin Anti-Xa Level ABG pH POC ABG pO2 ABG pO2 ABG HCO3 ABG O2 Saturation ABG Base Excess POC ABG pCO2 ABG Hemoglobin ABG Oxyhemoglobin ABG Sodium ABG Chloride ABG Glucose Oxyhemoglobin Sodium Potassium Chloride Carbon Dioxide BUN Creatinine Glucose POC Glucose 149 H 144 H 142 H Lactic Acid Calcium Phosphorus Magnesium AST ALT Lactate Dehydrogenase Total Bilirubin Direct Bilirubin CK-MB (CK-2) C-Reactive Protein NT-Pro-B Natriuret Pep Total Protein Albumin Arterial Blood Glucose Urine WBC (Auto) Urine Creatinine Digoxin 02/23/20 02/23/20 02/23/20 05:22 11:37 18:14 WBC RBC Hgb Hct MCHC RDW MCV MCH Lymph % (Auto) [place] % (Auto) [place] # Eos # Lymph # (Auto) [place] # (Auto) Eos # (Auto) Seg Neutrophils % Seg Neuts % (Manual) Baso # (Auto) Lymphocytes % (Manual) Monocytes % (Manual) Eosinophils % (Manual) Basophils % (Manual) Seg Neutrophils # Seg Neutrophils # Man Lymphocytes # (Manual) Monocytes # (Manual) Eosinophils # (Manual) Nucleated RBC % Basophils # (Manual) PT INR APTT Heparin Anti-Xa Level ABG pH POC ABG pO2 ABG pO2 ABG HCO3 ABG O2 Saturation ABG Base Excess POC ABG pCO2 ABG Hemoglobin ABG Oxyhemoglobin ABG Sodium ABG Chloride ABG Glucose Oxyhemoglobin Sodium Potassium Chloride Carbon Dioxide BUN Creatinine Glucose POC Glucose 144 H 113 H 127 H Lactic Acid Calcium Phosphorus Magnesium AST ALT Lactate Dehydrogenase Total Bilirubin Direct Bilirubin CK-MB (CK-2) C-Reactive Protein NT-Pro-B Natriuret Pep Total Protein Albumin Arterial Blood Glucose Urine WBC (Auto) Urine Creatinine Digoxin 02/23/20 02/24/20 02/24/20 23:45 05:50 11:24 WBC RBC Hgb Hct MCHC RDW MCV MCH Lymph % (Auto) [place] % (Auto) [place] # Eos # Lymph # (Auto) [place] # (Auto) Eos # (Auto) Seg Neutrophils % Seg Neuts % (Manual) Baso # (Auto) Lymphocytes % (Manual) Monocytes % (Manual) Eosinophils % (Manual) Basophils % (Manual) Seg Neutrophils # Seg Neutrophils # Man Lymphocytes # (Manual) Monocytes # (Manual) Eosinophils # (Manual) Nucleated RBC % Basophils # (Manual) PT INR APTT Heparin Anti-Xa Level ABG pH POC ABG pO2 ABG pO2 ABG HCO3 ABG O2 Saturation ABG Base Excess POC ABG pCO2 ABG Hemoglobin ABG Oxyhemoglobin ABG Sodium ABG Chloride ABG Glucose Oxyhemoglobin Sodium Potassium Chloride Carbon Dioxide BUN Creatinine Glucose POC Glucose 123 H 117 H 126 H Lactic Acid Calcium Phosphorus Magnesium AST ALT Lactate Dehydrogenase Total Bilirubin Direct Bilirubin CK-MB (CK-2) C-Reactive Protein NT-Pro-B Natriuret Pep Total Protein Albumin Arterial Blood Glucose Urine WBC (Auto) Urine Creatinine Digoxin 02/24/20 02/24/20 02/25/20 18:35 23:27 05:20 WBC RBC Hgb Hct MCHC RDW MCV MCH Lymph % (Auto) [place] % (Auto) [place] # Eos # Lymph # (Auto) [place] # (Auto) Eos # (Auto) Seg Neutrophils % Seg Neuts % (Manual) Baso # (Auto) Lymphocytes % (Manual) Monocytes % (Manual) Eosinophils % (Manual) Basophils % (Manual) Seg Neutrophils # Seg Neutrophils # Man Lymphocytes # (Manual) Monocytes # (Manual) Eosinophils # (Manual) Nucleated RBC % Basophils # (Manual) PT INR APTT Heparin Anti-Xa Level ABG pH POC ABG pO2 ABG pO2 ABG HCO3 ABG O2 Saturation ABG Base Excess POC ABG pCO2 ABG Hemoglobin ABG Oxyhemoglobin ABG Sodium ABG Chloride ABG Glucose Oxyhemoglobin Sodium Potassium Chloride Carbon Dioxide BUN Creatinine Glucose POC Glucose 121 H 127 H 133 H Lactic Acid Calcium Phosphorus Magnesium AST ALT Lactate Dehydrogenase Total Bilirubin Direct Bilirubin CK-MB (CK-2) C-Reactive Protein NT-Pro-B Natriuret Pep Total Protein Albumin Arterial Blood Glucose Urine WBC (Auto) Urine Creatinine Digoxin 02/25/20 02/25/20 02/25/20 12:08 17:26 23:33 WBC RBC Hgb Hct MCHC RDW MCV MCH Lymph % (Auto) [place] % (Auto) [place] # Eos # Lymph # (Auto) [place] # (Auto) Eos # (Auto) Seg Neutrophils % Seg Neuts % (Manual) Baso # (Auto) Lymphocytes % (Manual) Monocytes % (Manual) Eosinophils % (Manual) Basophils % (Manual) Seg Neutrophils # Seg Neutrophils # Man Lymphocytes # (Manual) Monocytes # (Manual) Eosinophils # (Manual) Nucleated RBC % Basophils # (Manual) PT INR APTT Heparin Anti-Xa Level ABG pH POC ABG pO2 ABG pO2 ABG HCO3 ABG O2 Saturation ABG Base Excess POC ABG pCO2 ABG Hemoglobin ABG Oxyhemoglobin ABG Sodium ABG Chloride ABG Glucose Oxyhemoglobin Sodium Potassium Chloride Carbon Dioxide BUN Creatinine Glucose POC Glucose 109 H 120 H 120 H Lactic Acid Calcium Phosphorus Magnesium AST ALT Lactate Dehydrogenase Total Bilirubin Direct Bilirubin CK-MB (CK-2) C-Reactive Protein NT-Pro-B Natriuret Pep Total Protein Albumin Arterial Blood Glucose Urine WBC (Auto) Urine Creatinine Digoxin 02/26/20 02/26/20 02/27/20 05:33 07:50 12:13 WBC RBC Hgb Hct MCHC RDW MCV MCH Lymph % (Auto) [place] % (Auto) [place] # Eos # Lymph # (Auto) [place] # (Auto) Eos # (Auto) Seg Neutrophils % Seg Neuts % (Manual) Baso # (Auto) Lymphocytes % (Manual) Monocytes % (Manual) Eosinophils % (Manual) Basophils % (Manual) Seg Neutrophils # Seg Neutrophils # Man Lymphocytes # (Manual) Monocytes # (Manual) Eosinophils # (Manual) Nucleated RBC % Basophils # (Manual) PT INR APTT Heparin Anti-Xa Level ABG pH POC ABG pO2 ABG pO2 ABG HCO3 ABG O2 Saturation ABG Base Excess POC ABG pCO2 ABG Hemoglobin ABG Oxyhemoglobin ABG Sodium ABG Chloride ABG Glucose Oxyhemoglobin Sodium Potassium Chloride Carbon Dioxide BUN Creatinine Glucose POC Glucose 106 H 130 H Lactic Acid Calcium Phosphorus Magnesium AST ALT Lactate Dehydrogenase Total Bilirubin Direct Bilirubin CK-MB (CK-2) C-Reactive Protein NT-Pro-B Natriuret Pep Total Protein Albumin Arterial Blood Glucose Urine WBC (Auto) > 182.0 H Urine Creatinine Digoxin 02/27/20 02/27/20 02/28/20 18:20 23:33 05:01 WBC RBC Hgb Hct MCHC RDW MCV MCH Lymph % (Auto) [place] % (Auto) [place] # Eos # Lymph # (Auto) [place] # (Auto) Eos # (Auto) Seg Neutrophils % Seg Neuts % (Manual) Baso # (Auto) Lymphocytes % (Manual) Monocytes % (Manual) Eosinophils % (Manual) Basophils % (Manual) Seg Neutrophils # Seg Neutrophils # Man Lymphocytes # (Manual) Monocytes # (Manual) Eosinophils # (Manual) Nucleated RBC % Basophils # (Manual) PT INR APTT Heparin Anti-Xa Level ABG pH POC ABG pO2 ABG pO2 ABG HCO3 ABG O2 Saturation ABG Base Excess POC ABG pCO2 ABG Hemoglobin ABG Oxyhemoglobin ABG Sodium ABG Chloride ABG Glucose Oxyhemoglobin Sodium Potassium Chloride Carbon Dioxide BUN Creatinine Glucose POC Glucose 109 H 124 H 134 H Lactic Acid Calcium Phosphorus Magnesium AST ALT Lactate Dehydrogenase Total Bilirubin Direct Bilirubin CK-MB (CK-2) C-Reactive Protein NT-Pro-B Natriuret Pep Total Protein Albumin Arterial Blood Glucose Urine WBC (Auto) Urine Creatinine Digoxin 02/28/20 02/28/20 02/28/20 11:54 18:16 23:03 WBC RBC Hgb Hct MCHC RDW MCV MCH Lymph % (Auto) [place] % (Auto) [place] # Eos # Lymph # (Auto) [place] # (Auto) Eos # (Auto) Seg Neutrophils % Seg Neuts % (Manual) Baso # (Auto) Lymphocytes % (Manual) Monocytes % (Manual) Eosinophils % (Manual) Basophils % (Manual) Seg Neutrophils # Seg Neutrophils # Man Lymphocytes # (Manual) Monocytes # (Manual) Eosinophils # (Manual) Nucleated RBC % Basophils # (Manual) PT INR APTT Heparin Anti-Xa Level ABG pH POC ABG pO2 ABG pO2 ABG HCO3 ABG O2 Saturation ABG Base Excess POC ABG pCO2 ABG Hemoglobin ABG Oxyhemoglobin ABG Sodium ABG Chloride ABG Glucose Oxyhemoglobin Sodium Potassium Chloride Carbon Dioxide BUN Creatinine Glucose POC Glucose 133 H 134 H 146 H Lactic Acid Calcium Phosphorus Magnesium AST ALT Lactate Dehydrogenase Total Bilirubin Direct Bilirubin CK-MB (CK-2) C-Reactive Protein NT-Pro-B Natriuret Pep Total Protein Albumin Arterial Blood Glucose Urine WBC (Auto) Urine Creatinine Digoxin 02/29/20 02/29/20 02/29/20 05:24 11:34 17:12 WBC RBC Hgb Hct MCHC RDW MCV MCH Lymph % (Auto) [place] % (Auto) [place] # Eos # Lymph # (Auto) [place] # (Auto) Eos # (Auto) Seg Neutrophils % Seg Neuts % (Manual) Baso # (Auto) Lymphocytes % (Manual) Monocytes % (Manual) Eosinophils % (Manual) Basophils % (Manual) Seg Neutrophils # Seg Neutrophils # Man Lymphocytes # (Manual) Monocytes # (Manual) Eosinophils # (Manual) Nucleated RBC % Basophils # (Manual) PT INR APTT Heparin Anti-Xa Level ABG pH POC ABG pO2 ABG pO2 ABG HCO3 ABG O2 Saturation ABG Base Excess POC ABG pCO2 ABG Hemoglobin ABG Oxyhemoglobin ABG Sodium ABG Chloride ABG Glucose Oxyhemoglobin Sodium Potassium Chloride Carbon Dioxide BUN Creatinine Glucose POC Glucose 139 H 141 H 157 H Lactic Acid Calcium Phosphorus Magnesium AST ALT Lactate Dehydrogenase Total Bilirubin Direct Bilirubin CK-MB (CK-2) C-Reactive Protein NT-Pro-B Natriuret Pep Total Protein Albumin Arterial Blood Glucose Urine WBC (Auto) Urine Creatinine Digoxin 02/29/20 03/01/20 03/01/20 23:35 06:00 11:53 WBC RBC Hgb Hct MCHC RDW MCV MCH Lymph % (Auto) [place] % (Auto) [place] # Eos # Lymph # (Auto) [place] # (Auto) Eos # (Auto) Seg Neutrophils % Seg Neuts % (Manual) Baso # (Auto) Lymphocytes % (Manual) Monocytes % (Manual) Eosinophils % (Manual) Basophils % (Manual) Seg Neutrophils # Seg Neutrophils # Man Lymphocytes # (Manual) Monocytes # (Manual) Eosinophils # (Manual) Nucleated RBC % Basophils # (Manual) PT INR APTT Heparin Anti-Xa Level ABG pH POC ABG pO2 ABG pO2 ABG HCO3 ABG O2 Saturation ABG Base Excess POC ABG pCO2 ABG Hemoglobin ABG Oxyhemoglobin ABG Sodium ABG Chloride ABG Glucose Oxyhemoglobin Sodium Potassium Chloride Carbon Dioxide BUN Creatinine Glucose POC Glucose 120 H 132 H 136 H Lactic Acid Calcium Phosphorus Magnesium AST ALT Lactate Dehydrogenase Total Bilirubin Direct Bilirubin CK-MB (CK-2) C-Reactive Protein NT-Pro-B Natriuret Pep Total Protein Albumin Arterial Blood Glucose Urine WBC (Auto) Urine Creatinine Digoxin 03/01/20 03/01/20 03/02/20 17:36 23:16 05:12 WBC RBC Hgb Hct MCHC RDW MCV MCH Lymph % (Auto) [place] % (Auto) [place] # Eos # Lymph # (Auto) [place] # (Auto) Eos # (Auto) Seg Neutrophils % Seg Neuts % (Manual) Baso # (Auto) Lymphocytes % (Manual) Monocytes % (Manual) Eosinophils % (Manual) Basophils % (Manual) Seg Neutrophils # Seg Neutrophils # Man Lymphocytes # (Manual) Monocytes # (Manual) Eosinophils # (Manual) Nucleated RBC % Basophils # (Manual) PT INR APTT Heparin Anti-Xa Level ABG pH POC ABG pO2 ABG pO2 ABG HCO3 ABG O2 Saturation ABG Base Excess POC ABG pCO2 ABG Hemoglobin ABG Oxyhemoglobin ABG Sodium ABG Chloride ABG Glucose Oxyhemoglobin Sodium Potassium Chloride Carbon Dioxide BUN Creatinine Glucose POC Glucose 171 H 164 H 176 H Lactic Acid Calcium Phosphorus Magnesium AST ALT Lactate Dehydrogenase Total Bilirubin Direct Bilirubin CK-MB (CK-2) C-Reactive Protein NT-Pro-B Natriuret Pep Total Protein Albumin Arterial Blood Glucose Urine WBC (Auto) Urine Creatinine Digoxin 03/02/20 03/02/20 03/03/20 11:42 18:01 00:06 WBC RBC Hgb Hct MCHC RDW MCV MCH Lymph % (Auto) [place] % (Auto) [place] # Eos # Lymph # (Auto) [place] # (Auto) Eos # (Auto) Seg Neutrophils % Seg Neuts % (Manual) Baso # (Auto) Lymphocytes % (Manual) Monocytes % (Manual) Eosinophils % (Manual) Basophils % (Manual) Seg Neutrophils # Seg Neutrophils # Man Lymphocytes # (Manual) Monocytes # (Manual) Eosinophils # (Manual) Nucleated RBC % Basophils # (Manual) PT INR APTT Heparin Anti-Xa Level ABG pH POC ABG pO2 ABG pO2 ABG HCO3 ABG O2 Saturation ABG Base Excess POC ABG pCO2 ABG Hemoglobin ABG Oxyhemoglobin ABG Sodium ABG Chloride ABG Glucose Oxyhemoglobin Sodium Potassium Chloride Carbon Dioxide BUN Creatinine Glucose POC Glucose 150 H 156 H 156 H Lactic Acid Calcium Phosphorus Magnesium AST ALT Lactate Dehydrogenase Total Bilirubin Direct Bilirubin CK-MB (CK-2) C-Reactive Protein NT-Pro-B Natriuret Pep Total Protein Albumin Arterial Blood Glucose Urine WBC (Auto) Urine Creatinine Digoxin 03/03/20 03/03/20 03/03/20 03:31 11:20 16:55 WBC RBC Hgb Hct MCHC RDW MCV MCH Lymph % (Auto) [place] % (Auto) [place] # Eos # Lymph # (Auto) [place] # (Auto) Eos # (Auto) Seg Neutrophils % Seg Neuts % (Manual) Baso # (Auto) Lymphocytes % (Manual) Monocytes % (Manual) Eosinophils % (Manual) Basophils % (Manual) Seg Neutrophils # Seg Neutrophils # Man Lymphocytes # (Manual) Monocytes # (Manual) Eosinophils # (Manual) Nucleated RBC % Basophils # (Manual) PT INR APTT Heparin Anti-Xa Level ABG pH POC ABG pO2 ABG pO2 ABG HCO3 ABG O2 Saturation ABG Base Excess POC ABG pCO2 ABG Hemoglobin ABG Oxyhemoglobin ABG Sodium ABG Chloride ABG Glucose Oxyhemoglobin Sodium Potassium Chloride Carbon Dioxide BUN Creatinine Glucose POC Glucose 164 H 125 H 211 H Lactic Acid Calcium Phosphorus Magnesium AST ALT Lactate Dehydrogenase Total Bilirubin Direct Bilirubin CK-MB (CK-2) C-Reactive Protein NT-Pro-B Natriuret Pep Total Protein Albumin Arterial Blood Glucose Urine WBC (Auto) Urine Creatinine Digoxin 03/04/20 03/04/20 03/04/20 00:29 05:20 12:09 WBC RBC Hgb Hct MCHC RDW MCV MCH Lymph % (Auto) [place] % (Auto) [place] # Eos # Lymph # (Auto) [place] # (Auto) Eos # (Auto) Seg Neutrophils % Seg Neuts % (Manual) Baso # (Auto) Lymphocytes % (Manual) Monocytes % (Manual) Eosinophils % (Manual) Basophils % (Manual) Seg Neutrophils # Seg Neutrophils # Man Lymphocytes # (Manual) Monocytes # (Manual) Eosinophils # (Manual) Nucleated RBC % Basophils # (Manual) PT INR APTT Heparin Anti-Xa Level ABG pH POC ABG pO2 ABG pO2 ABG HCO3 ABG O2 Saturation ABG Base Excess POC ABG pCO2 ABG Hemoglobin ABG Oxyhemoglobin ABG Sodium ABG Chloride ABG Glucose Oxyhemoglobin Sodium Potassium Chloride Carbon Dioxide BUN Creatinine Glucose POC Glucose 169 H 154 H 197 H Lactic Acid Calcium Phosphorus Magnesium AST ALT Lactate Dehydrogenase Total Bilirubin Direct Bilirubin CK-MB (CK-2) C-Reactive Protein NT-Pro-B Natriuret Pep Total Protein Albumin Arterial Blood Glucose Urine WBC (Auto) Urine Creatinine Digoxin 03/04/20 03/04/20 03/04/20 18:00 20:38 20:38 WBC RBC Hgb 10.1 L Hct 32.7 L MCHC 31 L RDW 24.7 H MCV 79 L MCH 24 L Lymph % (Auto) [place] % (Auto) 8.9 H [place] # Eos # Lymph # (Auto) [place] # (Auto) Eos # (Auto) Seg Neutrophils % Seg Neuts % (Manual) Baso # (Auto) Lymphocytes % (Manual) Monocytes % (Manual) Eosinophils % (Manual) Basophils % (Manual) Seg Neutrophils # Seg Neutrophils # Man Lymphocytes # (Manual) Monocytes # (Manual) Eosinophils # (Manual) Nucleated RBC % Basophils # (Manual) PT INR APTT Heparin Anti-Xa Level ABG pH POC ABG pO2 ABG pO2 ABG HCO3 ABG O2 Saturation ABG Base Excess POC ABG pCO2 ABG Hemoglobin ABG Oxyhemoglobin ABG Sodium ABG Chloride ABG Glucose Oxyhemoglobin Sodium 136 L Potassium Chloride Carbon Dioxide BUN 25 H Creatinine 0.5 L Glucose 148 H POC Glucose 146 H Lactic Acid Calcium Phosphorus Magnesium AST ALT Lactate Dehydrogenase Total Bilirubin Direct Bilirubin CK-MB (CK-2) C-Reactive Protein NT-Pro-B Natriuret Pep Total Protein Albumin Arterial Blood Glucose Urine WBC (Auto) Urine Creatinine Digoxin 03/04/20 03/05/20 03/05/20 23:17 05:44 11:32 WBC RBC Hgb Hct MCHC RDW MCV MCH Lymph % (Auto) [place] % (Auto) [place] # Eos # Lymph # (Auto) [place] # (Auto) Eos # (Auto) Seg Neutrophils % Seg Neuts % (Manual) Baso # (Auto) Lymphocytes % (Manual) Monocytes % (Manual) Eosinophils % (Manual) Basophils % (Manual) Seg Neutrophils # Seg Neutrophils # Man Lymphocytes # (Manual) Monocytes # (Manual) Eosinophils # (Manual) Nucleated RBC % Basophils # (Manual) PT INR APTT Heparin Anti-Xa Level ABG pH POC ABG pO2 ABG pO2 ABG HCO3 ABG O2 Saturation ABG Base Excess POC ABG pCO2 ABG Hemoglobin ABG Oxyhemoglobin ABG Sodium ABG Chloride ABG Glucose Oxyhemoglobin Sodium Potassium Chloride Carbon Dioxide BUN Creatinine Glucose POC Glucose 139 H 155 H 124 H Lactic Acid Calcium Phosphorus Magnesium AST ALT Lactate Dehydrogenase Total Bilirubin Direct Bilirubin CK-MB (CK-2) C-Reactive Protein NT-Pro-B Natriuret Pep Total Protein Albumin Arterial Blood Glucose Urine WBC (Auto) Urine Creatinine Digoxin 03/05/20 03/05/20 03/06/20 17:45 23:18 12:16 WBC RBC Hgb Hct MCHC RDW MCV MCH Lymph % (Auto) [place] % (Auto) [place] # Eos # Lymph # (Auto) [place] # (Auto) Eos # (Auto) Seg Neutrophils % Seg Neuts % (Manual) Baso # (Auto) Lymphocytes % (Manual) Monocytes % (Manual) Eosinophils % (Manual) Basophils % (Manual) Seg Neutrophils # Seg Neutrophils # Man Lymphocytes # (Manual) Monocytes # (Manual) Eosinophils # (Manual) Nucleated RBC % Basophils # (Manual) PT INR APTT Heparin Anti-Xa Level ABG pH POC ABG pO2 ABG pO2 ABG HCO3 ABG O2 Saturation ABG Base Excess POC ABG pCO2 ABG Hemoglobin ABG Oxyhemoglobin ABG Sodium ABG Chloride ABG Glucose Oxyhemoglobin Sodium Potassium Chloride Carbon Dioxide BUN Creatinine Glucose POC Glucose 171 H 114 H 155 H Lactic Acid Calcium Phosphorus Magnesium AST ALT Lactate Dehydrogenase Total Bilirubin Direct Bilirubin CK-MB (CK-2) C-Reactive Protein NT-Pro-B Natriuret Pep Total Protein Albumin Arterial Blood Glucose Urine WBC (Auto) Urine Creatinine Digoxin 03/06/20 03/06/20 03/07/20 17:27 23:48 06:02 WBC RBC Hgb Hct MCHC RDW MCV MCH Lymph % (Auto) [place] % (Auto) [place] # Eos # Lymph # (Auto) [place] # (Auto) Eos # (Auto) Seg Neutrophils % Seg Neuts % (Manual) Baso # (Auto) Lymphocytes % (Manual) Monocytes % (Manual) Eosinophils % (Manual) Basophils % (Manual) Seg Neutrophils # Seg Neutrophils # Man Lymphocytes # (Manual) Monocytes # (Manual) Eosinophils # (Manual) Nucleated RBC % Basophils # (Manual) PT INR APTT Heparin Anti-Xa Level ABG pH POC ABG pO2 ABG pO2 ABG HCO3 ABG O2 Saturation ABG Base Excess POC ABG pCO2 ABG Hemoglobin ABG Oxyhemoglobin ABG Sodium ABG Chloride ABG Glucose Oxyhemoglobin Sodium Potassium Chloride Carbon Dioxide BUN Creatinine Glucose POC Glucose 116 H 142 H 161 H Lactic Acid Calcium Phosphorus Magnesium AST ALT Lactate Dehydrogenase Total Bilirubin Direct Bilirubin CK-MB (CK-2) C-Reactive Protein NT-Pro-B Natriuret Pep Total Protein Albumin Arterial Blood Glucose Urine WBC (Auto) Urine Creatinine Digoxin 03/07/20 03/08/20 03/08/20 11:36 05:18 11:51 WBC RBC Hgb Hct MCHC RDW MCV MCH Lymph % (Auto) [place] % (Auto) [place] # Eos # Lymph # (Auto) [place] # (Auto) Eos # (Auto) Seg Neutrophils % Seg Neuts % (Manual) Baso # (Auto) Lymphocytes % (Manual) Monocytes % (Manual) Eosinophils % (Manual) Basophils % (Manual) Seg Neutrophils # Seg Neutrophils # Man Lymphocytes # (Manual) Monocytes # (Manual) Eosinophils # (Manual) Nucleated RBC % Basophils # (Manual) PT INR APTT Heparin Anti-Xa Level ABG pH POC ABG pO2 ABG pO2 ABG HCO3 ABG O2 Saturation ABG Base Excess POC ABG pCO2 ABG Hemoglobin ABG Oxyhemoglobin ABG Sodium ABG Chloride ABG Glucose Oxyhemoglobin Sodium Potassium Chloride Carbon Dioxide BUN Creatinine Glucose POC Glucose 127 H 142 H 135 H Lactic Acid Calcium Phosphorus Magnesium AST ALT Lactate Dehydrogenase Total Bilirubin Direct Bilirubin CK-MB (CK-2) C-Reactive Protein NT-Pro-B Natriuret Pep Total Protein Albumin Arterial Blood Glucose Urine WBC (Auto) Urine Creatinine Digoxin 03/08/20 03/08/20 03/09/20 18:14 23:45 05:36 WBC RBC Hgb Hct MCHC RDW MCV MCH Lymph % (Auto) [place] % (Auto) [place] # Eos # Lymph # (Auto) [place] # (Auto) Eos # (Auto) Seg Neutrophils % Seg Neuts % (Manual) Baso # (Auto) Lymphocytes % (Manual) Monocytes % (Manual) Eosinophils % (Manual) Basophils % (Manual) Seg Neutrophils # Seg Neutrophils # Man Lymphocytes # (Manual) Monocytes # (Manual) Eosinophils # (Manual) Nucleated RBC % Basophils # (Manual) PT INR APTT Heparin Anti-Xa Level ABG pH POC ABG pO2 ABG pO2 ABG HCO3 ABG O2 Saturation ABG Base Excess POC ABG pCO2 ABG Hemoglobin ABG Oxyhemoglobin ABG Sodium ABG Chloride ABG Glucose Oxyhemoglobin Sodium Potassium Chloride Carbon Dioxide BUN Creatinine Glucose POC Glucose 125 H 143 H 158 H Lactic Acid Calcium Phosphorus Magnesium AST ALT Lactate Dehydrogenase Total Bilirubin Direct Bilirubin CK-MB (CK-2) C-Reactive Protein NT-Pro-B Natriuret Pep Total Protein Albumin Arterial Blood Glucose Urine WBC (Auto) Urine Creatinine Digoxin 03/09/20 03/09/20 03/09/20 06:32 06:32 11:34 WBC RBC Hgb 9.8 L Hct 31.6 L MCHC 31 L RDW 23.1 H MCV 80 L MCH 25 L Lymph % (Auto) 35.1 H [place] % (Auto) 11.4 H [place] # Eos # Lymph # (Auto) [place] # (Auto) Eos # (Auto) Seg Neutrophils % Seg Neuts % (Manual) Baso # (Auto) Lymphocytes % (Manual) Monocytes % (Manual) Eosinophils % (Manual) Basophils % (Manual) Seg Neutrophils # Seg Neutrophils # Man Lymphocytes # (Manual) Monocytes # (Manual) Eosinophils # (Manual) Nucleated RBC % Basophils # (Manual) PT INR APTT Heparin Anti-Xa Level ABG pH POC ABG pO2 ABG pO2 ABG HCO3 ABG O2 Saturation ABG Base Excess POC ABG pCO2 ABG Hemoglobin ABG Oxyhemoglobin ABG Sodium ABG Chloride ABG Glucose Oxyhemoglobin Sodium 136 L Potassium Chloride Carbon Dioxide BUN 25 H Creatinine 0.6 L Glucose 170 H POC Glucose 140 H Lactic Acid Calcium Phosphorus Magnesium AST ALT Lactate Dehydrogenase Total Bilirubin Direct Bilirubin CK-MB (CK-2) C-Reactive Protein NT-Pro-B Natriuret Pep Total Protein Albumin Arterial Blood Glucose Urine WBC (Auto) Urine Creatinine Digoxin 03/09/20 03/09/20 03/10/20 18:10 23:11 05:41 WBC RBC Hgb Hct MCHC RDW MCV MCH Lymph % (Auto) [place] % (Auto) [place] # Eos # Lymph # (Auto) [place] # (Auto) Eos # (Auto) Seg Neutrophils % Seg Neuts % (Manual) Baso # (Auto) Lymphocytes % (Manual) Monocytes % (Manual) Eosinophils % (Manual) Basophils % (Manual) Seg Neutrophils # Seg Neutrophils # Man Lymphocytes # (Manual) Monocytes # (Manual) Eosinophils # (Manual) Nucleated RBC % Basophils # (Manual) PT INR APTT Heparin Anti-Xa Level ABG pH POC ABG pO2 ABG pO2 ABG HCO3 ABG O2 Saturation ABG Base Excess POC ABG pCO2 ABG Hemoglobin ABG Oxyhemoglobin ABG Sodium ABG Chloride ABG Glucose Oxyhemoglobin Sodium Potassium Chloride Carbon Dioxide BUN Creatinine Glucose POC Glucose 153 H 111 H 138 H Lactic Acid Calcium Phosphorus Magnesium AST ALT Lactate Dehydrogenase Total Bilirubin Direct Bilirubin CK-MB (CK-2) C-Reactive Protein NT-Pro-B Natriuret Pep Total Protein Albumin Arterial Blood Glucose Urine WBC (Auto) Urine Creatinine Digoxin 03/10/20 03/10/20 03/10/20 11:15 17:58 23:36 WBC RBC Hgb Hct MCHC RDW MCV MCH Lymph % (Auto) [place] % (Auto) [place] # Eos # Lymph # (Auto) [place] # (Auto) Eos # (Auto) Seg Neutrophils % Seg Neuts % (Manual) Baso # (Auto) Lymphocytes % (Manual) Monocytes % (Manual) Eosinophils % (Manual) Basophils % (Manual) Seg Neutrophils # Seg Neutrophils # Man Lymphocytes # (Manual) Monocytes # (Manual) Eosinophils # (Manual) Nucleated RBC % Basophils # (Manual) PT INR APTT Heparin Anti-Xa Level ABG pH POC ABG pO2 ABG pO2 ABG HCO3 ABG O2 Saturation ABG Base Excess POC ABG pCO2 ABG Hemoglobin ABG Oxyhemoglobin ABG Sodium ABG Chloride ABG Glucose Oxyhemoglobin Sodium Potassium Chloride Carbon Dioxide BUN Creatinine Glucose POC Glucose 141 H 149 H 148 H Lactic Acid Calcium Phosphorus Magnesium AST ALT Lactate Dehydrogenase Total Bilirubin Direct Bilirubin CK-MB (CK-2) C-Reactive Protein NT-Pro-B Natriuret Pep Total Protein Albumin Arterial Blood Glucose Urine WBC (Auto) Urine Creatinine Digoxin 03/11/20 03/11/20 03/12/20 05:55 17:43 04:45 WBC RBC Hgb Hct MCHC RDW MCV MCH Lymph % (Auto) [place] % (Auto) [place] # Eos # Lymph # (Auto) [place] # (Auto) Eos # (Auto) Seg Neutrophils % Seg Neuts % (Manual) Baso # (Auto) Lymphocytes % (Manual) Monocytes % (Manual) Eosinophils % (Manual) Basophils % (Manual) Seg Neutrophils # Seg Neutrophils # Man Lymphocytes # (Manual) Monocytes # (Manual) Eosinophils # (Manual) Nucleated RBC % Basophils # (Manual) PT INR APTT Heparin Anti-Xa Level ABG pH 7.454 H POC ABG pO2 69.2 L ABG pO2 ABG HCO3 ABG O2 Saturation ABG Base Excess POC ABG pCO2 ABG Hemoglobin 11.2 L ABG Oxyhemoglobin ABG Sodium 134.7 L ABG Chloride ABG Glucose 151 H Oxyhemoglobin Sodium Potassium Chloride Carbon Dioxide BUN Creatinine Glucose POC Glucose 181 H 107 H Lactic Acid Calcium Phosphorus Magnesium AST ALT Lactate Dehydrogenase Total Bilirubin Direct Bilirubin CK-MB (CK-2) C-Reactive Protein NT-Pro-B Natriuret Pep Total Protein Albumin Arterial Blood Glucose 151 H Urine WBC (Auto) Urine Creatinine Digoxin 03/12/20 03/12/20 03/12/20 05:36 11:36 17:40 WBC RBC Hgb Hct MCHC RDW MCV MCH Lymph % (Auto) [place] % (Auto) [place] # Eos # Lymph # (Auto) [place] # (Auto) Eos # (Auto) Seg Neutrophils % Seg Neuts % (Manual) Baso # (Auto) Lymphocytes % (Manual) Monocytes % (Manual) Eosinophils % (Manual) Basophils % (Manual) Seg Neutrophils # Seg Neutrophils # Man Lymphocytes # (Manual) Monocytes # (Manual) Eosinophils # (Manual) Nucleated RBC % Basophils # (Manual) PT INR APTT Heparin Anti-Xa Level ABG pH POC ABG pO2 ABG pO2 ABG HCO3 ABG O2 Saturation ABG Base Excess POC ABG pCO2 ABG Hemoglobin ABG Oxyhemoglobin ABG Sodium ABG Chloride ABG Glucose Oxyhemoglobin Sodium Potassium Chloride Carbon Dioxide BUN Creatinine Glucose POC Glucose 137 H 122 H 116 H Lactic Acid Calcium Phosphorus Magnesium AST ALT Lactate Dehydrogenase Total Bilirubin Direct Bilirubin CK-MB (CK-2) C-Reactive Protein NT-Pro-B Natriuret Pep Total Protein Albumin Arterial Blood Glucose Urine WBC (Auto) Urine Creatinine Digoxin 03/12/20 03/13/20 03/13/20 23:17 05:47 11:35 WBC RBC Hgb Hct MCHC RDW MCV MCH Lymph % (Auto) [place] % (Auto) [place] # Eos # Lymph # (Auto) [place] # (Auto) Eos # (Auto) Seg Neutrophils % Seg Neuts % (Manual) Baso # (Auto) Lymphocytes % (Manual) Monocytes % (Manual) Eosinophils % (Manual) Basophils % (Manual) Seg Neutrophils # Seg Neutrophils # Man Lymphocytes # (Manual) Monocytes # (Manual) Eosinophils # (Manual) Nucleated RBC % Basophils # (Manual) PT INR APTT Heparin Anti-Xa Level ABG pH POC ABG pO2 ABG pO2 ABG HCO3 ABG O2 Saturation ABG Base Excess POC ABG pCO2 ABG Hemoglobin ABG Oxyhemoglobin ABG Sodium ABG Chloride ABG Glucose Oxyhemoglobin Sodium Potassium Chloride Carbon Dioxide BUN Creatinine Glucose POC Glucose 118 H 142 H 146 H Lactic Acid Calcium Phosphorus Magnesium AST ALT Lactate Dehydrogenase Total Bilirubin Direct Bilirubin CK-MB (CK-2) C-Reactive Protein NT-Pro-B Natriuret Pep Total Protein Albumin Arterial Blood Glucose Urine WBC (Auto) Urine Creatinine Digoxin 03/13/20 03/13/20 03/14/20 17:25 23:27 05:04 WBC RBC Hgb Hct MCHC RDW MCV MCH Lymph % (Auto) [place] % (Auto) [place] # Eos # Lymph # (Auto) [place] # (Auto) Eos # (Auto) Seg Neutrophils % Seg Neuts % (Manual) Baso # (Auto) Lymphocytes % (Manual) Monocytes % (Manual) Eosinophils % (Manual) Basophils % (Manual) Seg Neutrophils # Seg Neutrophils # Man Lymphocytes # (Manual) Monocytes # (Manual) Eosinophils # (Manual) Nucleated RBC % Basophils # (Manual) PT INR APTT Heparin Anti-Xa Level ABG pH POC ABG pO2 ABG pO2 ABG HCO3 ABG O2 Saturation ABG Base Excess POC ABG pCO2 ABG Hemoglobin ABG Oxyhemoglobin ABG Sodium ABG Chloride ABG Glucose Oxyhemoglobin Sodium Potassium Chloride Carbon Dioxide BUN Creatinine Glucose POC Glucose 138 H 160 H 159 H Lactic Acid Calcium Phosphorus Magnesium AST ALT Lactate Dehydrogenase Total Bilirubin Direct Bilirubin CK-MB (CK-2) C-Reactive Protein NT-Pro-B Natriuret Pep Total Protein Albumin Arterial Blood Glucose Urine WBC (Auto) Urine Creatinine Digoxin 03/14/20 03/14/20 03/15/20 11:19 16:18 00:18 WBC RBC Hgb Hct MCHC RDW MCV MCH Lymph % (Auto) [place] % (Auto) [place] # Eos # Lymph # (Auto) [place] # (Auto) Eos # (Auto) Seg Neutrophils % Seg Neuts % (Manual) Baso # (Auto) Lymphocytes % (Manual) Monocytes % (Manual) Eosinophils % (Manual) Basophils % (Manual) Seg Neutrophils # Seg Neutrophils # Man Lymphocytes # (Manual) Monocytes # (Manual) Eosinophils # (Manual) Nucleated RBC % Basophils # (Manual) PT INR APTT Heparin Anti-Xa Level ABG pH POC ABG pO2 ABG pO2 ABG HCO3 ABG O2 Saturation ABG Base Excess POC ABG pCO2 ABG Hemoglobin ABG Oxyhemoglobin ABG Sodium ABG Chloride ABG Glucose Oxyhemoglobin Sodium Potassium Chloride Carbon Dioxide BUN Creatinine Glucose POC Glucose 130 H 170 H 125 H Lactic Acid Calcium Phosphorus Magnesium AST ALT Lactate Dehydrogenase Total Bilirubin Direct Bilirubin CK-MB (CK-2) C-Reactive Protein NT-Pro-B Natriuret Pep Total Protein Albumin Arterial Blood Glucose Urine WBC (Auto) Urine Creatinine Digoxin 03/15/20 03/15/20 03/15/20 04:05 04:05 05:36 WBC RBC Hgb 10.0 L Hct 31.6 L MCHC RDW 22.4 H MCV 77 L MCH 24 L Lymph % (Auto) 36.2 H [place] % (Auto) 9.4 H [place] # Eos # Lymph # (Auto) [place] # (Auto) Eos # (Auto) Seg Neutrophils % Seg Neuts % (Manual) Baso # (Auto) Lymphocytes % (Manual) Monocytes % (Manual) Eosinophils % (Manual) Basophils % (Manual) Seg Neutrophils # Seg Neutrophils # Man Lymphocytes # (Manual) Monocytes # (Manual) Eosinophils # (Manual) Nucleated RBC % Basophils # (Manual) PT INR APTT Heparin Anti-Xa Level ABG pH POC ABG pO2 ABG pO2 ABG HCO3 ABG O2 Saturation ABG Base Excess POC ABG pCO2 ABG Hemoglobin ABG Oxyhemoglobin ABG Sodium ABG Chloride ABG Glucose Oxyhemoglobin Sodium Potassium Chloride Carbon Dioxide 32 H BUN Creatinine 0.5 L Glucose 141 H POC Glucose 130 H Lactic Acid Calcium Phosphorus Magnesium AST ALT Lactate Dehydrogenase Total Bilirubin Direct Bilirubin CK-MB (CK-2) C-Reactive Protein NT-Pro-B Natriuret Pep Total Protein Albumin Arterial Blood Glucose Urine WBC (Auto) Urine Creatinine Digoxin 03/15/20 03/15/20 03/15/20 11:41 17:38 23:16 WBC RBC Hgb Hct MCHC RDW MCV MCH Lymph % (Auto) [place] % (Auto) [place] # Eos # Lymph # (Auto) [place] # (Auto) Eos # (Auto) Seg Neutrophils % Seg Neuts % (Manual) Baso # (Auto) Lymphocytes % (Manual) Monocytes % (Manual) Eosinophils % (Manual) Basophils % (Manual) Seg Neutrophils # Seg Neutrophils # Man Lymphocytes # (Manual) Monocytes # (Manual) Eosinophils # (Manual) Nucleated RBC % Basophils # (Manual) PT INR APTT Heparin Anti-Xa Level ABG pH POC ABG pO2 ABG pO2 ABG HCO3 ABG O2 Saturation ABG Base Excess POC ABG pCO2 ABG Hemoglobin ABG Oxyhemoglobin ABG Sodium ABG Chloride ABG Glucose Oxyhemoglobin Sodium Potassium Chloride Carbon Dioxide BUN Creatinine Glucose POC Glucose 114 H 144 H 116 H Lactic Acid Calcium Phosphorus Magnesium AST ALT Lactate Dehydrogenase Total Bilirubin Direct Bilirubin CK-MB (CK-2) C-Reactive Protein NT-Pro-B Natriuret Pep Total Protein Albumin Arterial Blood Glucose Urine WBC (Auto) Urine Creatinine Digoxin 03/16/20 03/16/20 03/16/20 05:39 13:16 18:29 WBC RBC Hgb Hct MCHC RDW MCV MCH Lymph % (Auto) [place] % (Auto) [place] # Eos # Lymph # (Auto) [place] # (Auto) Eos # (Auto) Seg Neutrophils % Seg Neuts % (Manual) Baso # (Auto) Lymphocytes % (Manual) Monocytes % (Manual) Eosinophils % (Manual) Basophils % (Manual) Seg Neutrophils # Seg Neutrophils # Man Lymphocytes # (Manual) Monocytes # (Manual) Eosinophils # (Manual) Nucleated RBC % Basophils # (Manual) PT INR APTT Heparin Anti-Xa Level ABG pH POC ABG pO2 ABG pO2 ABG HCO3 ABG O2 Saturation ABG Base Excess POC ABG pCO2 ABG Hemoglobin ABG Oxyhemoglobin ABG Sodium ABG Chloride ABG Glucose Oxyhemoglobin Sodium Potassium Chloride Carbon Dioxide BUN Creatinine Glucose POC Glucose 125 H 153 H 135 H Lactic Acid Calcium Phosphorus Magnesium AST ALT Lactate Dehydrogenase Total Bilirubin Direct Bilirubin CK-MB (CK-2) C-Reactive Protein NT-Pro-B Natriuret Pep Total Protein Albumin Arterial Blood Glucose Urine WBC (Auto) Urine Creatinine Digoxin 03/16/20 03/17/20 03/17/20 23:32 05:50 11:38 WBC RBC Hgb Hct MCHC RDW MCV MCH Lymph % (Auto) [place] % (Auto) [place] # Eos # Lymph # (Auto) [place] # (Auto) Eos # (Auto) Seg Neutrophils % Seg Neuts % (Manual) Baso # (Auto) Lymphocytes % (Manual) Monocytes % (Manual) Eosinophils % (Manual) Basophils % (Manual) Seg Neutrophils # Seg Neutrophils # Man Lymphocytes # (Manual) Monocytes # (Manual) Eosinophils # (Manual) Nucleated RBC % Basophils # (Manual) PT INR APTT Heparin Anti-Xa Level ABG pH POC ABG pO2 ABG pO2 ABG HCO3 ABG O2 Saturation ABG Base Excess POC ABG pCO2 ABG Hemoglobin ABG Oxyhemoglobin ABG Sodium ABG Chloride ABG Glucose Oxyhemoglobin Sodium Potassium Chloride Carbon Dioxide BUN Creatinine Glucose POC Glucose 137 H 160 H 134 H Lactic Acid Calcium Phosphorus Magnesium AST ALT Lactate Dehydrogenase Total Bilirubin Direct Bilirubin CK-MB (CK-2) C-Reactive Protein NT-Pro-B Natriuret Pep Total Protein Albumin Arterial Blood Glucose Urine WBC (Auto) Urine Creatinine Digoxin 03/17/20 03/17/20 03/18/20 16:59 23:29 05:39 WBC RBC Hgb Hct MCHC RDW MCV MCH Lymph % (Auto) [place] % (Auto) [place] # Eos # Lymph # (Auto) [place] # (Auto) Eos # (Auto) Seg Neutrophils % Seg Neuts % (Manual) Baso # (Auto) Lymphocytes % (Manual) Monocytes % (Manual) Eosinophils % (Manual) Basophils % (Manual) Seg Neutrophils # Seg Neutrophils # Man Lymphocytes # (Manual) Monocytes # (Manual) Eosinophils # (Manual) Nucleated RBC % Basophils # (Manual) PT INR APTT Heparin Anti-Xa Level ABG pH POC ABG pO2 ABG pO2 ABG HCO3 ABG O2 Saturation ABG Base Excess POC ABG pCO2 ABG Hemoglobin ABG Oxyhemoglobin ABG Sodium ABG Chloride ABG Glucose Oxyhemoglobin Sodium Potassium Chloride Carbon Dioxide BUN Creatinine Glucose POC Glucose 120 H 141 H 181 H Lactic Acid Calcium Phosphorus Magnesium AST ALT Lactate Dehydrogenase Total Bilirubin Direct Bilirubin CK-MB (CK-2) C-Reactive Protein NT-Pro-B Natriuret Pep Total Protein Albumin Arterial Blood Glucose Urine WBC (Auto) Urine Creatinine Digoxin 03/18/20 03/18/20 03/18/20 11:18 15:34 17:42 WBC RBC Hgb Hct MCHC RDW MCV MCH Lymph % (Auto) [place] % (Auto) [place] # Eos # Lymph # (Auto) [place] # (Auto) Eos # (Auto) Seg Neutrophils % Seg Neuts % (Manual) Baso # (Auto) Lymphocytes % (Manual) Monocytes % (Manual) Eosinophils % (Manual) Basophils % (Manual) Seg Neutrophils # Seg Neutrophils # Man Lymphocytes # (Manual) Monocytes # (Manual) Eosinophils # (Manual) Nucleated RBC % Basophils # (Manual) PT INR APTT Heparin Anti-Xa Level ABG pH POC ABG pO2 ABG pO2 ABG HCO3 ABG O2 Saturation ABG Base Excess POC ABG pCO2 ABG Hemoglobin ABG Oxyhemoglobin ABG Sodium ABG Chloride ABG Glucose Oxyhemoglobin Sodium 132 L Potassium 5.4 H D Chloride 96.8 L Carbon Dioxide BUN 24 H Creatinine 0.6 L Glucose 164 H POC Glucose 142 H 118 H Lactic Acid Calcium Phosphorus Magnesium AST ALT Lactate Dehydrogenase Total Bilirubin Direct Bilirubin CK-MB (CK-2) C-Reactive Protein NT-Pro-B Natriuret Pep Total Protein 6.2 L Albumin 2.8 L Arterial Blood Glucose Urine WBC (Auto) Urine Creatinine Digoxin 03/18/20 03/19/20 03/19/20 23:57 05:40 07:50 WBC RBC Hgb Hct MCHC RDW MCV MCH Lymph % (Auto) [place] % (Auto) [place] # Eos # Lymph # (Auto) [place] # (Auto) Eos # (Auto) Seg Neutrophils % Seg Neuts % (Manual) Baso # (Auto) Lymphocytes % (Manual) Monocytes % (Manual) Eosinophils % (Manual) Basophils % (Manual) Seg Neutrophils # Seg Neutrophils # Man Lymphocytes # (Manual) Monocytes # (Manual) Eosinophils # (Manual) Nucleated RBC % Basophils # (Manual) PT INR APTT Heparin Anti-Xa Level ABG pH POC ABG pO2 ABG pO2 ABG HCO3 ABG O2 Saturation ABG Base Excess POC ABG pCO2 ABG Hemoglobin ABG Oxyhemoglobin ABG Sodium ABG Chloride ABG Glucose Oxyhemoglobin Sodium 136 L Potassium Chloride 97.3 L Carbon Dioxide 31 H BUN 22 H Creatinine 0.5 L Glucose 160 H POC Glucose 127 H 136 H Lactic Acid Calcium Phosphorus Magnesium AST ALT Lactate Dehydrogenase Total Bilirubin Direct Bilirubin CK-MB (CK-2) C-Reactive Protein NT-Pro-B Natriuret Pep Total Protein Albumin Arterial Blood Glucose Urine WBC (Auto) Urine Creatinine Digoxin 03/19/20 03/19/20 03/20/20 12:21 17:27 00:31 WBC RBC Hgb Hct MCHC RDW MCV MCH Lymph % (Auto) [place] % (Auto) [place] # Eos # Lymph # (Auto) [place] # (Auto) Eos # (Auto) Seg Neutrophils % Seg Neuts % (Manual) Baso # (Auto) Lymphocytes % (Manual) Monocytes % (Manual) Eosinophils % (Manual) Basophils % (Manual) Seg Neutrophils # Seg Neutrophils # Man Lymphocytes # (Manual) Monocytes # (Manual) Eosinophils # (Manual) Nucleated RBC % Basophils # (Manual) PT INR APTT Heparin Anti-Xa Level ABG pH POC ABG pO2 ABG pO2 ABG HCO3 ABG O2 Saturation ABG Base Excess POC ABG pCO2 ABG Hemoglobin ABG Oxyhemoglobin ABG Sodium ABG Chloride ABG Glucose Oxyhemoglobin Sodium Potassium Chloride Carbon Dioxide BUN Creatinine Glucose POC Glucose 147 H 152 H 132 H Lactic Acid Calcium Phosphorus Magnesium AST ALT Lactate Dehydrogenase Total Bilirubin Direct Bilirubin CK-MB (CK-2) C-Reactive Protein NT-Pro-B Natriuret Pep Total Protein Albumin Arterial Blood Glucose Urine WBC (Auto) Urine Creatinine Digoxin 03/20/20 03/20/20 03/20/20 05:59 11:45 17:24 WBC RBC Hgb Hct MCHC RDW MCV MCH Lymph % (Auto) [place] % (Auto) [place] # Eos # Lymph # (Auto) [place] # (Auto) Eos # (Auto) Seg Neutrophils % Seg Neuts % (Manual) Baso # (Auto) Lymphocytes % (Manual) Monocytes % (Manual) Eosinophils % (Manual) Basophils % (Manual) Seg Neutrophils # Seg Neutrophils # Man Lymphocytes # (Manual) Monocytes # (Manual) Eosinophils # (Manual) Nucleated RBC % Basophils # (Manual) PT INR APTT Heparin Anti-Xa Level ABG pH POC ABG pO2 ABG pO2 ABG HCO3 ABG O2 Saturation ABG Base Excess POC ABG pCO2 ABG Hemoglobin ABG Oxyhemoglobin ABG Sodium ABG Chloride ABG Glucose Oxyhemoglobin Sodium Potassium Chloride Carbon Dioxide BUN Creatinine Glucose POC Glucose 146 H 142 H 107 H Lactic Acid Calcium Phosphorus Magnesium AST ALT Lactate Dehydrogenase Total Bilirubin Direct Bilirubin CK-MB (CK-2) C-Reactive Protein NT-Pro-B Natriuret Pep Total Protein Albumin Arterial Blood Glucose Urine WBC (Auto) Urine Creatinine Digoxin 03/20/20 03/21/20 03/21/20 23:38 05:38 11:22 WBC RBC Hgb Hct MCHC RDW MCV MCH Lymph % (Auto) [place] % (Auto) [place] # Eos # Lymph # (Auto) [place] # (Auto) Eos # (Auto) Seg Neutrophils % Seg Neuts % (Manual) Baso # (Auto) Lymphocytes % (Manual) Monocytes % (Manual) Eosinophils % (Manual) Basophils % (Manual) Seg Neutrophils # Seg Neutrophils # Man Lymphocytes # (Manual) Monocytes # (Manual) Eosinophils # (Manual) Nucleated RBC % Basophils # (Manual) PT INR APTT Heparin Anti-Xa Level ABG pH POC ABG pO2 ABG pO2 ABG HCO3 ABG O2 Saturation ABG Base Excess POC ABG pCO2 ABG Hemoglobin ABG Oxyhemoglobin ABG Sodium ABG Chloride ABG Glucose Oxyhemoglobin Sodium Potassium Chloride Carbon Dioxide BUN Creatinine Glucose POC Glucose 115 H 133 H 137 H Lactic Acid Calcium Phosphorus Magnesium AST ALT Lactate Dehydrogenase Total Bilirubin Direct Bilirubin CK-MB (CK-2) C-Reactive Protein NT-Pro-B Natriuret Pep Total Protein Albumin Arterial Blood Glucose Urine WBC (Auto) Urine Creatinine Digoxin 03/21/20 03/22/20 03/22/20 18:26 00:10 05:29 WBC RBC Hgb Hct MCHC RDW MCV MCH Lymph % (Auto) [place] % (Auto) [place] # Eos # Lymph # (Auto) [place] # (Auto) Eos # (Auto) Seg Neutrophils % Seg Neuts % (Manual) Baso # (Auto) Lymphocytes % (Manual) Monocytes % (Manual) Eosinophils % (Manual) Basophils % (Manual) Seg Neutrophils # Seg Neutrophils # Man Lymphocytes # (Manual) Monocytes # (Manual) Eosinophils # (Manual) Nucleated RBC % Basophils # (Manual) PT INR APTT Heparin Anti-Xa Level ABG pH POC ABG pO2 ABG pO2 ABG HCO3 ABG O2 Saturation ABG Base Excess POC ABG pCO2 ABG Hemoglobin ABG Oxyhemoglobin ABG Sodium ABG Chloride ABG Glucose Oxyhemoglobin Sodium Potassium Chloride Carbon Dioxide BUN Creatinine Glucose POC Glucose 200 H 123 H 156 H Lactic Acid Calcium Phosphorus Magnesium AST ALT Lactate Dehydrogenase Total Bilirubin Direct Bilirubin CK-MB (CK-2) C-Reactive Protein NT-Pro-B Natriuret Pep Total Protein Albumin Arterial Blood Glucose Urine WBC (Auto) Urine Creatinine Digoxin 03/22/20 03/22/20 03/22/20 06:39 06:39 06:39 WBC RBC Hgb 9.7 L Hct 30.7 L MCHC RDW 22.2 H MCV 77 L MCH 25 L Lymph % (Auto) [place] % (Auto) 9.0 H [place] # Eos # Lymph # (Auto) [place] # (Auto) Eos # (Auto) Seg Neutrophils % Seg Neuts % (Manual) Baso # (Auto) Lymphocytes % (Manual) Monocytes % (Manual) Eosinophils % (Manual) Basophils % (Manual) Seg Neutrophils # Seg Neutrophils # Man Lymphocytes # (Manual) Monocytes # (Manual) Eosinophils # (Manual) Nucleated RBC % Basophils # (Manual) PT INR APTT Heparin Anti-Xa Level ABG pH POC ABG pO2 ABG pO2 ABG HCO3 ABG O2 Saturation ABG Base Excess POC ABG pCO2 ABG Hemoglobin ABG Oxyhemoglobin ABG Sodium ABG Chloride ABG Glucose Oxyhemoglobin Sodium Potassium Chloride Carbon Dioxide 33 H BUN Creatinine 0.5 L Glucose 147 H POC Glucose Lactic Acid Calcium Phosphorus Magnesium AST ALT Lactate Dehydrogenase Total Bilirubin Direct Bilirubin CK-MB (CK-2) C-Reactive Protein NT-Pro-B Natriuret Pep Total Protein Albumin Arterial Blood Glucose Urine WBC (Auto) Urine Creatinine Digoxin 0.8 L 03/22/20 03/22/20 03/22/20 11:22 17:49 23:38 WBC RBC Hgb Hct MCHC RDW MCV MCH Lymph % (Auto) [place] % (Auto) [place] # Eos # Lymph # (Auto) [place] # (Auto) Eos # (Auto) Seg Neutrophils % Seg Neuts % (Manual) Baso # (Auto) Lymphocytes % (Manual) Monocytes % (Manual) Eosinophils % (Manual) Basophils % (Manual) Seg Neutrophils # Seg Neutrophils # Man Lymphocytes # (Manual) Monocytes # (Manual) Eosinophils # (Manual) Nucleated RBC % Basophils # (Manual) PT INR APTT Heparin Anti-Xa Level ABG pH POC ABG pO2 ABG pO2 ABG HCO3 ABG O2 Saturation ABG Base Excess POC ABG pCO2 ABG Hemoglobin ABG Oxyhemoglobin ABG Sodium ABG Chloride ABG Glucose Oxyhemoglobin Sodium Potassium Chloride Carbon Dioxide BUN Creatinine Glucose POC Glucose 159 H 119 H 129 H Lactic Acid Calcium Phosphorus Magnesium AST ALT Lactate Dehydrogenase Total Bilirubin Direct Bilirubin CK-MB (CK-2) C-Reactive Protein NT-Pro-B Natriuret Pep Total Protein Albumin Arterial Blood Glucose Urine WBC (Auto) Urine Creatinine Digoxin 03/23/20 03/23/20 03/23/20 05:02 11:38 17:01 WBC RBC Hgb Hct MCHC RDW MCV MCH Lymph % (Auto) [place] % (Auto) [place] # Eos # Lymph # (Auto) [place] # (Auto) Eos # (Auto) Seg Neutrophils % Seg Neuts % (Manual) Baso # (Auto) Lymphocytes % (Manual) Monocytes % (Manual) Eosinophils % (Manual) Basophils % (Manual) Seg Neutrophils # Seg Neutrophils # Man Lymphocytes # (Manual) Monocytes # (Manual) Eosinophils # (Manual) Nucleated RBC % Basophils # (Manual) PT INR APTT Heparin Anti-Xa Level ABG pH POC ABG pO2 ABG pO2 ABG HCO3 ABG O2 Saturation ABG Base Excess POC ABG pCO2 ABG Hemoglobin ABG Oxyhemoglobin ABG Sodium ABG Chloride ABG Glucose Oxyhemoglobin Sodium Potassium Chloride Carbon Dioxide BUN Creatinine Glucose POC Glucose 136 H 129 H 122 H Lactic Acid Calcium Phosphorus Magnesium AST ALT Lactate Dehydrogenase Total Bilirubin Direct Bilirubin CK-MB (CK-2) C-Reactive Protein NT-Pro-B Natriuret Pep Total Protein Albumin Arterial Blood Glucose Urine WBC (Auto) Urine Creatinine Digoxin 03/23/20 03/24/20 03/24/20 23:35 06:55 11:43 WBC RBC Hgb Hct MCHC RDW MCV MCH Lymph % (Auto) [place] % (Auto) [place] # Eos # Lymph # (Auto) [place] # (Auto) Eos # (Auto) Seg Neutrophils % Seg Neuts % (Manual) Baso # (Auto) Lymphocytes % (Manual) Monocytes % (Manual) Eosinophils % (Manual) Basophils % (Manual) Seg Neutrophils # Seg Neutrophils # Man Lymphocytes # (Manual) Monocytes # (Manual) Eosinophils # (Manual) Nucleated RBC % Basophils # (Manual) PT INR APTT Heparin Anti-Xa Level ABG pH POC ABG pO2 ABG pO2 ABG HCO3 ABG O2 Saturation ABG Base Excess POC ABG pCO2 ABG Hemoglobin ABG Oxyhemoglobin ABG Sodium ABG Chloride ABG Glucose Oxyhemoglobin Sodium Potassium Chloride Carbon Dioxide BUN Creatinine Glucose POC Glucose 115 H 122 H 135 H Lactic Acid Calcium Phosphorus Magnesium AST ALT Lactate Dehydrogenase Total Bilirubin Direct Bilirubin CK-MB (CK-2) C-Reactive Protein NT-Pro-B Natriuret Pep Total Protein Albumin Arterial Blood Glucose Urine WBC (Auto) Urine Creatinine Digoxin 03/24/20 03/24/20 03/25/20 17:18 23:27 05:45 WBC RBC Hgb Hct MCHC RDW MCV MCH Lymph % (Auto) [place] % (Auto) [place] # Eos # Lymph # (Auto) [place] # (Auto) Eos # (Auto) Seg Neutrophils % Seg Neuts % (Manual) Baso # (Auto) Lymphocytes % (Manual) Monocytes % (Manual) Eosinophils % (Manual) Basophils % (Manual) Seg Neutrophils # Seg Neutrophils # Man Lymphocytes # (Manual) Monocytes # (Manual) Eosinophils # (Manual) Nucleated RBC % Basophils # (Manual) PT INR APTT Heparin Anti-Xa Level ABG pH POC ABG pO2 ABG pO2 ABG HCO3 ABG O2 Saturation ABG Base Excess POC ABG pCO2 ABG Hemoglobin ABG Oxyhemoglobin ABG Sodium ABG Chloride ABG Glucose Oxyhemoglobin Sodium Potassium Chloride Carbon Dioxide BUN Creatinine Glucose POC Glucose 125 H 124 H 176 H Lactic Acid Calcium Phosphorus Magnesium AST ALT Lactate Dehydrogenase Total Bilirubin Direct Bilirubin CK-MB (CK-2) C-Reactive Protein NT-Pro-B Natriuret Pep Total Protein Albumin Arterial Blood Glucose Urine WBC (Auto) Urine Creatinine Digoxin 03/25/20 03/25/20 03/26/20 11:15 17:00 00:12 WBC RBC Hgb Hct MCHC RDW MCV MCH Lymph % (Auto) [place] % (Auto) [place] # Eos # Lymph # (Auto) [place] # (Auto) Eos # (Auto) Seg Neutrophils % Seg Neuts % (Manual) Baso # (Auto) Lymphocytes % (Manual) Monocytes % (Manual) Eosinophils % (Manual) Basophils % (Manual) Seg Neutrophils # Seg Neutrophils # Man Lymphocytes # (Manual) Monocytes # (Manual) Eosinophils # (Manual) Nucleated RBC % Basophils # (Manual) PT INR APTT Heparin Anti-Xa Level ABG pH POC ABG pO2 ABG pO2 ABG HCO3 ABG O2 Saturation ABG Base Excess POC ABG pCO2 ABG Hemoglobin ABG Oxyhemoglobin ABG Sodium ABG Chloride ABG Glucose Oxyhemoglobin Sodium Potassium Chloride Carbon Dioxide BUN Creatinine Glucose POC Glucose 147 H 111 H 115 H Lactic Acid Calcium Phosphorus Magnesium AST ALT Lactate Dehydrogenase Total Bilirubin Direct Bilirubin CK-MB (CK-2) C-Reactive Protein NT-Pro-B Natriuret Pep Total Protein Albumin Arterial Blood Glucose Urine WBC (Auto) Urine Creatinine Digoxin 03/26/20 03/26/20 03/26/20 04:20 05:28 16:21 WBC RBC Hgb Hct MCHC RDW MCV MCH Lymph % (Auto) [place] % (Auto) [place] # Eos # Lymph # (Auto) [place] # (Auto) Eos # (Auto) Seg Neutrophils % Seg Neuts % (Manual) Baso # (Auto) Lymphocytes % (Manual) Monocytes % (Manual) Eosinophils % (Manual) Basophils % (Manual) Seg Neutrophils # Seg Neutrophils # Man Lymphocytes # (Manual) Monocytes # (Manual) Eosinophils # (Manual) Nucleated RBC % Basophils # (Manual) PT INR APTT Heparin Anti-Xa Level ABG pH POC ABG pO2 ABG pO2 ABG HCO3 ABG O2 Saturation ABG Base Excess POC ABG pCO2 ABG Hemoglobin ABG Oxyhemoglobin ABG Sodium ABG Chloride ABG Glucose Oxyhemoglobin Sodium Potassium Chloride Carbon Dioxide BUN Creatinine 0.6 L Glucose 182 H POC Glucose 158 H 137 H Lactic Acid Calcium Phosphorus Magnesium AST ALT Lactate Dehydrogenase Total Bilirubin Direct Bilirubin CK-MB (CK-2) C-Reactive Protein NT-Pro-B Natriuret Pep Total Protein Albumin Arterial Blood Glucose Urine WBC (Auto) Urine Creatinine Digoxin 03/27/20 03/27/20 03/27/20 00:22 05:49 11:16 WBC RBC Hgb Hct MCHC RDW MCV MCH Lymph % (Auto) [place] % (Auto) [place] # Eos # Lymph # (Auto) [place] # (Auto) Eos # (Auto) Seg Neutrophils % Seg Neuts % (Manual) Baso # (Auto) Lymphocytes % (Manual) Monocytes % (Manual) Eosinophils % (Manual) Basophils % (Manual) Seg Neutrophils # Seg Neutrophils # Man Lymphocytes # (Manual) Monocytes # (Manual) Eosinophils # (Manual) Nucleated RBC % Basophils # (Manual) PT INR APTT Heparin Anti-Xa Level ABG pH POC ABG pO2 ABG pO2 ABG HCO3 ABG O2 Saturation ABG Base Excess POC ABG pCO2 ABG Hemoglobin ABG Oxyhemoglobin ABG Sodium ABG Chloride ABG Glucose Oxyhemoglobin Sodium Potassium Chloride Carbon Dioxide BUN Creatinine Glucose POC Glucose 155 H 117 H 139 H Lactic Acid Calcium Phosphorus Magnesium AST ALT Lactate Dehydrogenase Total Bilirubin Direct Bilirubin CK-MB (CK-2) C-Reactive Protein NT-Pro-B Natriuret Pep Total Protein Albumin Arterial Blood Glucose Urine WBC (Auto) Urine Creatinine Digoxin 03/27/20 03/27/20 03/28/20 17:23 23:23 05:36 WBC RBC Hgb Hct MCHC RDW MCV MCH Lymph % (Auto) [place] % (Auto) [place] # Eos # Lymph # (Auto) [place] # (Auto) Eos # (Auto) Seg Neutrophils % Seg Neuts % (Manual) Baso # (Auto) Lymphocytes % (Manual) Monocytes % (Manual) Eosinophils % (Manual) Basophils % (Manual) Seg Neutrophils # Seg Neutrophils # Man Lymphocytes # (Manual) Monocytes # (Manual) Eosinophils # (Manual) Nucleated RBC % Basophils # (Manual) PT INR APTT Heparin Anti-Xa Level ABG pH POC ABG pO2 ABG pO2 ABG HCO3 ABG O2 Saturation ABG Base Excess POC ABG pCO2 ABG Hemoglobin ABG Oxyhemoglobin ABG Sodium ABG Chloride ABG Glucose Oxyhemoglobin Sodium Potassium Chloride Carbon Dioxide BUN Creatinine Glucose POC Glucose 130 H 137 H 167 H Lactic Acid Calcium Phosphorus Magnesium AST ALT Lactate Dehydrogenase Total Bilirubin Direct Bilirubin CK-MB (CK-2) C-Reactive Protein NT-Pro-B Natriuret Pep Total Protein Albumin Arterial Blood Glucose Urine WBC (Auto) Urine Creatinine Digoxin 03/28/20 03/28/20 03/28/20 12:28 17:54 23:40 WBC RBC Hgb Hct MCHC RDW MCV MCH Lymph % (Auto) [place] % (Auto) [place] # Eos # Lymph # (Auto) [place] # (Auto) Eos # (Auto) Seg Neutrophils % Seg Neuts % (Manual) Baso # (Auto) Lymphocytes % (Manual) Monocytes % (Manual) Eosinophils % (Manual) Basophils % (Manual) Seg Neutrophils # Seg Neutrophils # Man Lymphocytes # (Manual) Monocytes # (Manual) Eosinophils # (Manual) Nucleated RBC % Basophils # (Manual) PT INR APTT Heparin Anti-Xa Level ABG pH POC ABG pO2 ABG pO2 ABG HCO3 ABG O2 Saturation ABG Base Excess POC ABG pCO2 ABG Hemoglobin ABG Oxyhemoglobin ABG Sodium ABG Chloride ABG Glucose Oxyhemoglobin Sodium Potassium Chloride Carbon Dioxide BUN Creatinine Glucose POC Glucose 128 H 126 H 111 H Lactic Acid Calcium Phosphorus Magnesium AST ALT Lactate Dehydrogenase Total Bilirubin Direct Bilirubin CK-MB (CK-2) C-Reactive Protein NT-Pro-B Natriuret Pep Total Protein Albumin Arterial Blood Glucose Urine WBC (Auto) Urine Creatinine Digoxin 03/29/20 05:56 WBC RBC Hgb Hct MCHC RDW MCV MCH Lymph % (Auto) [place] % (Auto) [place] # Eos # Lymph # (Auto) [place] # (Auto) Eos # (Auto) Seg Neutrophils % Seg Neuts % (Manual) Baso # (Auto) Lymphocytes % (Manual) Monocytes % (Manual) Eosinophils % (Manual) Basophils % (Manual) Seg Neutrophils # Seg Neutrophils # Man Lymphocytes # (Manual) Monocytes # (Manual) Eosinophils # (Manual) Nucleated RBC % Basophils # (Manual) PT INR APTT Heparin Anti-Xa Level ABG pH POC ABG pO2 ABG pO2 ABG HCO3 ABG O2 Saturation ABG Base Excess POC ABG pCO2 ABG Hemoglobin ABG Oxyhemoglobin ABG Sodium ABG Chloride ABG Glucose Oxyhemoglobin Sodium Potassium Chloride Carbon Dioxide BUN Creatinine Glucose POC Glucose 118 H Lactic Acid Calcium Phosphorus Magnesium AST ALT Lactate Dehydrogenase Total Bilirubin Direct Bilirubin CK-MB (CK-2) C-Reactive Protein NT-Pro-B Natriuret Pep Total Protein Albumin Arterial Blood Glucose Urine WBC (Auto) Urine Creatinine Digoxin Chest x-ray: report reviewed, image reviewed Additional Studies: CHEST 1 VIEW 03/29/20 INDICATION: Respiratory failure. COMPARISON: March 10, 2020 FINDINGS: SUPPORT DEVICES: Tracheostomy good position. HEART / MEDIASTINUM: No significant abnormality. LUNGS / PLEURA: Again noted bilateral pulmonary process with bilateral pleural effusions. No pneumothorax. ADDITIONAL FINDINGS: IMPRESSION: 1. No interval changes compared to previous exam Allied health notes reviewed: nursing
[2020-03-29] MEDS: DIGOXIN 0.125 MG TAB PO SCH (18:05)
[2020-03-29] MEDS: ONDANSETRON 4 MG/2 ML INJ IV PRN (18:06)
--- NOTE | 2020-03-29 20:24 | Progress Note ---
Assessment and Plan Assessment and plan: -Intractable nausea; check for residual feeding IV Zofran as needed, improved --Acute on chronic hypoxemic respiratory failure; Patient has tracheostomy weaned off vent On T-piece, 15 L of oxygen Pulmonary critical following --Acute exacerbation of COPD; Patient is currently on T-piece Continue nebulizers --Left lower lobe PE; Continue Eliquis, ventilatory support --Acute right lower extremity DVT; Patient is on Eliquis --Bilateral multifocal pneumonia/community-acquired Completed antibiotics, improved --Severe sepsis/bilateral pneumonia: Completed antibiotics COVID-19 test; 11/24/2019; negative 11/26/2019; negative 12/29/2019: Negative --Paroxysmal atrial fibrillation; Now rate controlled, Stable on amiodarone and Eliquis --Acute on chronic combined systolic and diastolic congestive heart failure Ischemic cardiomyopathy left ventricular ejection fraction 40 to 45% --H/o CAD [[facility] 12/2018 in-stent restenosis] Patient is stable on current cardiac medications --Hypertensive emergency; present on admission Reasonable blood pressures, continue current antihypertensives As needed medications --History of alcohol abuse/alcohol withdrawal; Was on CIWA protocol, now stable --Oropharyngeal dysphagia; status post PEG placement Continue PEG feeds per protocol --History of partial small bowel obstruction; resolved Surgery evaluated. --Obesity; BMI 34.7 Patient needs weight reduction when medically stable --Severe protein calorie malnutrition/hypoalbuminemia Nutrition supplements, dietitian following, PEG feeds --DVT prophylaxis;Eliquis --Full CODE STATUS 03/19/2020. Continue current vent per pulmonary recommendations. Pressure support ventilation trials as tolerated. Continue trach care, secretion control and airway management. Mobility protocols for pressure ulcer prophylaxis. 03/20/2020. Rate better controlled on digoxin and metoprolol per cardiology. Patient currently off amiodarone due to elevated liver enzymes. Continue anticoagulation with Eliquis. IV metoprolol as needed. No statins for now secondary to elevated liver enzymes. Patient remains on AC mode ventilation rate 12, tidal volume 450, FiO2 30% and PEEP of 6. Cont. PSV as figueroa. Continue trach care, secretion control and airway management. Mobility protocols for pressure ulcer prophylaxis. Patient is uninsured and his only d/c option is to return home with family. 03/21/2020. Patient still with elevated heart rate but better on digoxin and metoprolol per cardiology. Patient currently off amiodarone due to elevated liver enzymes. Continue anticoagulation with Eliquis. IV metoprolol as needed. No statins for now secondary to elevated liver enzymes. Patient remains on AC mode mechanical ventilation with rate 12, tidal volume 450, FiO2 30% and PEEP of 6. Continue PSV trials as tolerated. Continue trach care, secretion control and airway management. Mobility protocols for pressure ulcer prophylaxis. Patient is uninsured and his only d/c option is to return home with family. 03/22/2020; patient remains on ventilatory support, continue to wean as tolerated, trach care Awaiting LTAC placement, however patient has multiple social issues, mobility protocols blood pressure ulcers DVT prophylaxis, will continue current management 03/23/2020; patient remains on ventilatory support, tracheostomy, on CPAP trial 03/25/2020; patient with tracheostomy remains on ventilatory support, complains of mild nausea 03/26/2020; clinically no change, tracheostomy on vent, unable to wean 03/27/2020; remains on ventilatory support, wean as tolerated, social issues, awaiting placement 03/28/2020; wean off vent as tolerated, awaiting LTAC placement, multiple social issues 03/29/2020; patient is off vent, tracheostomy on T-piece 15 L of oxygen closely monitor Plan of care reviewed with the patient and his nurse The high probability of a clinically significant, sudden or life threatening deterioration of the [Respiratory, cardiovascular & neurological] system(s) required my full and direct attention, intervention and personal management. The aggregate critical care time was [35] minutes without overlap. Time includes spent on [x] Data Review and interpretation [x] Patient assessment and monitoring of vital signs [x] Documentation [x] Medication orders and management Plan of care reviewed with the patient and his nurse History Interval history: I have seen and examined the patient at the bedside this morning in ICU Patient's chart and medications reviewed Patient is alert and awake tracheostomy on T-piece 15 L of oxygen Patient is not in acute distress Vital signs reviewed Hospitalist Physical - Constitutional Vitals: Temp Pulse Resp BP Pulse Ox 98.6 F 131 H 28 H 108/86 96 03/29/20 20:00 03/29/20 18:31 03/29/20 18:31 03/29/20 18:31 03/29/20 20:15 General appearance: Present: no acute distress, well-nourished, other (Tracheostomy on T-piece) - EENT Eyes: Present: PERRL, EOM intact ENT: other (Tracheostomy on T-piece) - Neck Neck: Present: supple, normal ROM - Respiratory Respiratory effort: normal Respiratory: bilateral: diminished, rhonchi, negative: rales, wheezing - Cardiovascular Rhythm: regular Heart Sounds: Present: S1 & S2 - Extremities Extremities: no ischemia Extremity abnormal: edema - Abdominal General gastrointestinal: soft, non-tender, non-distended, normal bowel sounds - Integumentary Integumentary: Present: clear, warm - Psychiatric Psychiatric: appropriate mood/affect, cooperative - Neurologic Neurologic: moves all extremities, other (Tracheostomy on T-piece) HEART Score - HEART Score Troponin: Troponin T < 0.010 ng/mL (0.00-0.029) 01/19/20 01:35 Results - Labs CBC & Chem 7: 03/22/20 06:39 03/26/20 04:20 Labs: Laboratory Last Values WBC 6.0 K/mm3 (4.5-11.0) 03/22/20 06:39 RBC 3.97 M/mm3 (3.65-5.03) 03/22/20 06:39 Hgb 9.7 gm/dl (11.8-15.2) L 03/22/20 06:39 Hct 30.7 % (35.5-45.6) L 03/22/20 06:39 MCV 77 fl (84-94) L 03/22/20 06:39 MCH 25 pg (28-32) L 03/22/20 06:39 MCHC 32 % (32-34) 03/22/20 06:39 RDW 22.2 % (13.2-15.2) H 03/22/20 06:39 Plt Count 166 K/mm3 (140-440) 03/22/20 06:39 Lymph % (Auto) 32.8 % (13.4-35.0) 03/22/20 06:39 Dixie % (Auto) 9.0 % (0.0-7.3) H 03/22/20 06:39 Eos % (Auto) 2.4 % (0.0-4.3) 03/22/20 06:39 Baso % (Auto) 0.3 % (0.0-1.8) 03/22/20 06:39 Lymph # (Auto) 2.0 K/mm3 (1.2-5.4) 03/22/20 06:39 Dixie # (Auto) 0.5 K/mm3 (0.0-0.8) 03/22/20 06:39 Eos # (Auto) 0.1 K/mm3 (0.0-0.4) 03/22/20 06:39 Baso # (Auto) 0.0 K/mm3 (0.0-0.1) 03/22/20 06:39 Add Manual Diff Complete 02/15/20 06:59 Total Counted 100 02/15/20 06:59 Seg Neuts % (Manual) 58.0 % (40.0-70.0) 02/15/20 06:59 Band Neutrophils % 0 % 02/15/20 06:59 Seg Neutrophils % 55.5 % (40.0-70.0) 03/22/20 06:39 Lymphocytes % (Manual) 34.0 % (13.4-35.0) 02/15/20 06:59 Reactive Lymphs % (Man) 1.0 % 02/15/20 06:59 Monocytes % (Manual) 4.0 % (0.0-7.3) 02/15/20 06:59 Eosinophils % (Manual) 0 % (0.0-4.3) 02/15/20 06:59 Basophils % (Manual) 2.0 % (0.0-1.8) H 02/15/20 06:59 Metamyelocytes % 1.0 % 02/15/20 06:59 Myelocytes % 0 % 02/15/20 06:59 Promyelocytes % 0 % 02/15/20 06:59 Blast Cells % 0 % 02/15/20 06:59 Nucleated RBC % 1.0 % (0.0-0.9) H 02/15/20 06:59 Seg Neutrophils # Man 5.9 K/mm3 (1.8-7.7) 02/15/20 06:59 Seg Neutrophils # 3.4 K/mm3 (1.8-7.7) 03/22/20 06:39 Band Neutrophils # 0.0 K/mm3 02/15/20 06:59 Lymphocytes # (Manual) 3.5 K/mm3 (1.2-5.4) 02/15/20 06:59 Abs React Lymphs (Man) 0.1 K/mm3 02/15/20 06:59 Monocytes # (Manual) 0.4 K/mm3 (0.0-0.8) 02/15/20 06:59 Eosinophils # (Manual) 0.0 K/mm3 (0.0-0.4) 02/15/20 06:59 Basophils # (Manual) 0.2 K/mm3 (0.0-0.1) H 02/15/20 06:59 Metamyelocytes # 0.1 K/mm3 02/15/20 06:59 Myelocytes # 0.0 K/mm3 02/15/20 06:59 Promyelocytes # 0.0 K/mm3 02/15/20 06:59 Blast Cells # 0.0 K/mm3 02/15/20 06:59 WBC Morphology Not Reportable 02/15/20 06:59 Hypersegmented Neuts Not Reportable 02/15/20 06:59 Hyposegmented Neuts Not Reportable 02/15/20 06:59 Hypogranular Neuts Not Reportable 02/15/20 06:59 Smudge Cells Not Reportable 02/15/20 06:59 Toxic Granulation Not Reportable 02/15/20 06:59 Toxic Vacuolation Not Reportable 02/15/20 06:59 Dohle Bodies Not Reportable 02/15/20 06:59 Pelger-Huet Anomaly Not Reportable 02/15/20 06:59 Hector Rods Not Reportable 02/15/20 06:59 Platelet Estimate Consistent w auto 02/15/20 06:59 Clumped Platelets Not Reportable 02/15/20 06:59 Plt Clumps, EDTA Not Reportable 02/15/20 06:59 Large Platelets Not Reportable 02/15/20 06:59 Giant Platelets Not Reportable 02/15/20 06:59 Platelet Satelliting Not Reportable 02/15/20 06:59 Plt Morphology Comment Giant platelets 02/15/20 06:59 RBC Morphology Not Reportable 02/15/20 06:59 Dimorphic RBCs Not Reportable 02/15/20 06:59 Polychromasia Not Reportable 02/15/20 06:59 Hypochromasia 1+ 02/15/20 06:59 Poikilocytosis Few 02/15/20 06:59 Anisocytosis 1+ 02/15/20 06:59 Microcytosis Not Reportable 02/15/20 06:59 Macrocytosis Not Reportable 02/15/20 06:59 Spherocytes Not Reportable 02/15/20 06:59 Pappenheimer Bodies Not Reportable 02/15/20 06:59 Sickle Cells Not Reportable 02/15/20 06:59 Target Cells 1+ 02/15/20 06:59 Tear Drop Cells Few 02/15/20 06:59 Ovalocytes Not Reportable 02/15/20 06:59 Helmet Cells Not Reportable 02/15/20 06:59 Gottlieb-[place] Bodies Not Reportable 02/15/20 06:59 [place] Rings Not Reportable 02/15/20 06:59 [place] Cells Not Reportable 02/15/20 06:59 Bite Cells Not Reportable 02/15/20 06:59 Crenated Cell Not Reportable 02/15/20 06:59 Elliptocytes Few 02/15/20 06:59 Acanthocytes (Spur) Not Reportable 02/15/20 06:59 Rouleaux Not Reportable 02/15/20 06:59 Hemoglobin C Crystals Not Reportable 02/15/20 06:59 Schistocytes Not Reportable 02/15/20 06:59 Malaria parasites Not Reportable 02/15/20 06:59 Clifford Bodies Not Reportable 02/15/20 06:59 Hem Pathologist Commnt No 02/15/20 06:59 PT 27.0 Sec. (12.2-14.9) H 02/07/20 15:03 INR 2.46 (0.87-1.13) H 02/07/20 15:03 APTT 31.5 Sec. (24.2-36.6) 01/22/20 09:58 Heparin Anti-Xa Level 1.34 U.I./ml (0.3-0.7) H 01/22/20 04:45 ABG pH 7.454 (7.320-7.450) H 03/12/20 04:45 POC ABG pCO2 45.6 mmHg (32.0-48.0) 03/12/20 04:45 ABG pCO2 47.8 mm Hg 02/20/20 06:45 POC ABG pO2 69.2 mmHg (83-108) L 03/12/20 04:45 ABG pO2 88.7 mm Hg (80.0-90.0) 02/20/20 06:45 POC ABG HCO3 31.3 03/12/20 04:45 ABG HCO3 33.3 mmol/L (20.0-26.0) H 02/20/20 06:45 ABG O2 Saturation 97.2 % (95.0-99.0) 02/20/20 06:45 ABG O2 Content 13.3 (0.0-44) 02/20/20 06:45 POC ABG Base Excess 6.5 03/12/20 04:45 ABG Base Excess 8.4 mmol/L (-2.0-3.0) H 02/20/20 06:45 ABG Hemoglobin 11.2 (12.0-17.5) L 03/12/20 04:45 ABG Oxyhemoglobin 84 (94-98) L 12/22/19 03:22 ABG Carboxyhemoglobin 2.9 % (0.0-5.0) 02/20/20 06:45 ABG Methemoglobin 0.4 % (0.0-1.5) 02/20/20 06:45 ABG Sodium 134.7 mmol/L (136.0-145.0) L 03/12/20 04:45 ABG Potassium 3.9 mmol/L (3.40-4.50) 03/12/20 04:45 ABG Chloride 98.0 mmol/L (98-107) 03/12/20 04:45 ABG Glucose 151 mg/dL (65-95) H 03/12/20 04:45 Oxyhemoglobin 94.1 % (95.0-99.0) L 02/20/20 06:45 Carboxyhemoglobin 0.7 (0.5-1.5) 12/22/19 03:22 FiO2 30 03/12/20 04:45 Sodium 140 mmol/L (137-145) 03/26/20 04:20 Potassium 4.3 mmol/L (3.6-5.0) 03/26/20 04:20 Chloride 99.3 mmol/L (98-107) 03/26/20 04:20 Carbon Dioxide 26 mmol/L (22-30) D 03/26/20 04:20 Anion Gap 19 mmol/L 03/26/20 04:20 BUN 19 mg/dL (9-20) 03/26/20 04:20 Creatinine 0.6 mg/dL (0.8-1.3) L 03/26/20 04:20 Estimated GFR > 60 ml/min 03/26/20 04:20 BUN/Creatinine Ratio 32 % 03/26/20 04:20 Glucose 182 mg/dL (75-100) H 03/26/20 04:20 POC Glucose 142 mg/dL (70-105) H 03/29/20 18:21 Lactic Acid 1.60 mmol/L (0.7-2.0) 02/03/20 12:49 Ferritin 84.4 ng/mL (30.0-300.0) 11/24/19 04:53 Calcium 8.9 mg/dL (8.4-10.2) 03/26/20 04:20 Phosphorus 4.10 mg/dL (2.5-4.5) 01/31/20 19:24 Magnesium 2.40 mg/dL (1.7-2.3) H 02/10/20 07:40 Total Bilirubin 0.90 mg/dL (0.1-1.2) 03/18/20 15:34 Direct Bilirubin 0.9 mg/dL (0-0.2) H 02/08/20 19:00 Indirect Bilirubin 0.4 mg/dL 02/08/20 19:00 Total Creatine Kinase 141 units/L (55-170) 11/24/19 02:53 CK-MB (CK-2) 4.3 ng/mL (0.0-4.0) H 11/24/19 02:53 AST 23 units/L (5-40) 03/18/20 15:34 CK-MB (CK-2) Rel Index 3.0 (0-4) 11/24/19 02:53 ALT 22 units/L (7-56) 03/18/20 15:34 Alkaline Phosphatase 96 units/L (35-129) 03/18/20 15:34 C-Reactive Protein 8.50 mg/dL (0.00-1.30) H 12/01/19 12:16 Ammonia 35.0 umol/L (25-60) 02/03/20 12:49 Lactate Dehydrogenase 228 units/L (91-180) H 12/19/19 04:45 Troponin T < 0.010 ng/mL (0.00-0.029) 01/19/20 01:35 NT-Pro-B Natriuret Pep 3866 pg/mL (0-900) H 01/01/20 10:40 Total Protein 6.2 g/dL (6.3-8.2) L 03/18/20 15:34 Albumin 2.8 g/dL (3.9-5) L 03/18/20 15:34 Albumin/Globulin Ratio 0.8 % 03/18/20 15:34 Procalcitonin 0.44 ng/mL (<0.15) 02/03/20 12:49 Arterial Blood Glucose 151 mg/dL (65-95) H 03/12/20 04:45 Arterial Blood Ionized Calcium 4.8 mg/dL (4.6-5.3) 03/12/20 04:45 Urine Color Cecy (Yellow) 02/26/20 07:50 Urine Turbidity Clear (Clear) 02/26/20 07:50 Urine pH 5.0 (5.0-7.0) 02/26/20 07:50 Ur Specific [place] 1.025 (1.003-1.030) 02/26/20 07:50 Urine Protein 30 mg/dl mg/dL (Negative) 02/26/20 07:50 Urine Glucose (UA) Neg mg/dL (Negative) 02/26/20 07:50 Urine Ketones Neg mg/dL (Negative) 02/26/20 07:50 Urine Blood Sm (Negative) 02/26/20 07:50 Urine Nitrite Neg (Negative) 02/26/20 07:50 Urine Bilirubin Neg (Negative) 02/26/20 07:50 Urine Urobilinogen 4.0 mg/dL (<2.0) 02/26/20 07:50 Ur Leukocyte Esterase Lg (Negative) 02/26/20 07:50 Urine WBC (Auto) > 182.0 /HPF (0.0-6.0) H 02/26/20 07:50 Urine RBC (Auto) 84.0 /HPF (0.0-6.0) 02/26/20 07:50 U Epithel Cells (Auto) 2.0 /HPF (0-13.0) 12/31/19 18:04 Urine Bacteria (Auto) 4+ /HPF (Negative) 02/26/20 07:50 Urine WBC Clumps 2+ /HPF 02/26/20 07:50 Urine Mucus 1+ /HPF 02/26/20 07:50 Urine Creatinine 57.4 mg/dL (0.1-20.0) H 01/31/20 Unknown Urine Sodium 59 mmol/L 01/31/20 Unknown Vancomycin Trough 14.2 ug/mL (5.0-20.0) 12/13/19 15:01 Digoxin 0.8 ng/mL (0.9-2.0) L 03/22/20 06:39 Coronavirus (PCR) Negative (Negative) 12/29/19 10:07 Hepatitis A IgM Ab Non-reactive (NonReactive) 02/05/20 06:37 Hep Bs Antigen Non-reactive (Negative) 02/05/20 06:37 Hep B Core IgM Ab Non-reactive (NonReactive) 02/05/20 06:37 Hepatitis C Antibody Non-reactive (NonReactive) 02/05/20 06:37 Blood Type O POSITIVE 01/21/20 13:00 Antibody Screen Negative 01/21/20 13:00 - Diagnostic Impressions Diagnostic Impressions: Echocardiogram 11/29/19 07:37 Transthoracic Echocardiogram Indication: CHF BP: 116/72 HR: 33 Conclusions *The study is technically limited due to poor acoustic windows. *Global left ventricular systolic function is normal. *The estimated ejection fraction is 50-55%. *Mild concentric left ventricular hypertrophy is observed. *There is trace of mitral regurgitation. *There is mild tricuspid regurgitation. Findings Procedure Info: The study quality is poor. The study is technically limited due to poor acoustic windows. The study is technically limited due to patient body habitus. Left Ventricle: The left ventricular chamber size is normal. Mild concentric left ventricular hypertrophy is observed. Global left ventricular systolic function is normal. The estimated ejection fraction is 50-55%. Left Atrium: The left atrial chamber size is normal. Right Ventricle: The right ventricular cavity size is normal. Right Atrium: The right atrial cavity size is normal. Aortic Valve: The aortic valve leaflets are moderately thickened. There is trace of aortic regurgitation. There is no evidence of aortic stenosis. Mitral Valve: The mitral valve leaflets are mildly thickened. There is trace of mitral regurgitation. There is no evidence of mitral stenosis. Tricuspid Valve: There is mild tricuspid regurgitation. No pulmonary hypertension is noted. Pulmonic Valve: There is trace pulmonic regurgitation. Pericardium: There is no pericardial effusion. Aorta: There is no dilatation of the aortic root. Venous: The inferior vena cava appears normal in size. Contrast: Definity was used to optimize study. Intravenous contrast was used to enhance endocardial border definition. Measurements Chambers 2D Name Value Normal Range Ao root diameter (2D) 3.4 cm (2 - 3.7) Aortic Valve Name Value Normal Range AV Vmax 0.98 m/sec - AV VTI 16.76 cm - AV peak gradient 3.83 mmHg - AV mean gradient 2.57 mmHg - LVOT diameter 3.11 cm - LVOT Vmax 0.68 m/sec - LVOT VTI 11.52 cm - LVOT peak gradient 1.84 mmHg - LVOT mean gradient 1.27 mmHg - SV LVOT 87.31 ml - MALOU (continuity Vmax) 5.24 cm2 - MALOU (continuity VTI) 5.21 cm2 - Tricuspid Valve Name Value Normal Range IVC diameter 2.24 cm (1.2 - 2.3) Hoffman/IV: Voiding Method Indwelling Catheter IV Catheter Type [Left INT / Saline Lock Antecubital] IV Catheter Type [Right INT / Saline Lock Forearm] IV Catheter Type [Right Hand] Peripheral IV IV Catheter Type [Right Upper INT / Saline Lock arm] IV Catheter Type [Left Upper Mid-line arm] IV Catheter Type [Left Forearm Peripheral IV ] IV Catheter Type [Left Hand] Peripheral IV IV Catheter Type [Left Wrist] INT / Saline Lock IV Catheter Type [Right Peripheral IV Antecubital] Active Medications - Current Medications Current Medications: Generic Name Dose Route Start Last Admin Trade Name Freq PRN Reason Stop Dose Admin Acetaminophen 650 mg 03/12/20 04:29 03/29/20 02:35 Acetaminophen 325 Mg/10.15 Ml Oral Liqd Unit Dose FEEDTUBE 650 mg Q6H PRN Administration Pain, Mild (1-3) Alprazolam 0.5 mg 03/26/20 09:26 03/29/20 18:06 Alprazolam 0.5 Mg Tab PO 0.5 mg TID PRN Administration Anxiety Lipase/Protease/Amylase 1 each 01/09/20 12:01 03/26/20 14:03 Lipase 10,500/Protease 25,000/Amylase 43,750 (Units) Dr Lauren FEEDTUBE 1 each PRN PRN Administration For Clogged Feeding Tube Apixaban 5 mg 01/22/20 22:00 03/29/20 09:46 Apixaban 5 Mg Tab PO 5 mg Q12HR CAR Administration Protocol Atorvastatin Calcium 40 mg 01/20/20 22:00 03/28/20 21:50 Atorvastatin 40 Mg Tab PO 40 mg QHS CAR Administration Clopidogrel Bisulfate 75 mg 01/21/20 06:00 03/29/20 09:47 Clopidogrel 75 Mg Tab PO 75 mg QDAY CAR Administration Dextrose 50 ml 01/31/20 18:51 02/05/20 00:56 Dextrose 50% In Water (25gm) 50 Ml Syringe IV 50 ml Q30MIN PRN Administration Hypoglycemia Protocol Digoxin 0.125 mg 02/25/20 17:00 03/29/20 18:05 Digoxin 0.125 Mg Tab PO 0.125 mg DAILY@1700 CAR Administration Docusate Sodium 100 mg 02/22/20 10:00 03/29/20 09:46 Docusate Sodium 100 Mg/10 Ml Oral Liqd FEEDTUBE Not Given BID CAR Furosemide 20 mg 03/26/20 10:00 03/29/20 09:46 Furosemide 20 Mg Tab PO 20 mg QDAY CAR Administration Glycopyrrolate 2 mg 02/24/20 21:00 03/29/20 14:17 Glycopyrrolate 2 Mg Tab PO 2 mg TID CAR Administration Haloperidol Lactate 5 mg 02/10/20 14:20 03/19/20 23:26 Haloperidol Lactate 5 Mg/1 Ml Inj IV 5 mg Q6H PRN Administration Agitation Hydrophilic Ointment 1 applic 01/17/20 15:26 02/24/20 23:20 Lip Therapy Vaseline TP 1 applic DIRECT PRN Administration Dry Lips Insulin Human Regular 0 unit 02/01/20 18:00 03/29/20 18:22 Humulin R SUB-Q Not Given Q6H [facility] Protocol Lansoprazole 30 mg 02/05/20 16:00 03/29/20 09:46 Lansoprazole 30 Mg Solutab FEEDTUBE 30 mg QDAY CAR Administration Metoprolol Tartrate 5 mg 01/11/20 08:00 03/18/20 16:52 Metoprolol Tartrate 5 Mg/5 Ml Inj IV 5 mg Q6H PRN Administration SEE INSTRUCTIONS Metoprolol Tartrate 12.5 mg 02/28/20 12:00 03/29/20 09:47 Metoprolol Tartrate 25 Mg Tab FEEDTUBE 12.5 mg BID CAR Administration Midodrine 15 mg 02/04/20 16:00 03/29/20 18:06 Midodrine 5 Mg Tab PO 15 mg TID@0800,1200,1600 CAR Administration Morphine Sulfate 2 mg 01/06/20 15:41 03/29/20 10:11 Morphine 2 Mg/1 Ml Inj IV 2 mg Q4H PRN Administration Pain, Moderate (4-6) Multi-Ingred Cream/Lotion/Oil/Oint 1 applic 02/01/20 15:52 Artificial Tears Ophth Oint OU Q4HR PRN Dry Eye(s) Nitroglycerin 0.4 mg 01/19/20 21:09 01/20/20 03:03 Nitroglycerin 0.4 Mg Tab Subl SL 0.4 mg .Q5MIN PRN Administration Chest Pain Ondansetron HCl 4 mg 03/25/20 08:01 03/29/20 18:06 Ondansetron 4 Mg/2 Ml Inj IV 4 mg Q4H PRN Administration Nausea And Vomiting Polyethylene Glycol 17 gm 12/04/19 22:00 03/28/20 21:51 Miralax 3350 PO 17 gm QHS CAR Administration Quetiapine Fumarate 300 mg 01/13/20 22:00 03/29/20 10:05 Quetiapine 100 Mg Tab PO 300 mg BID CAR Administration Simple Syrup 15 ml 01/09/20 12:01 Simple Syrup 15 Ml FEEDTUBE PRN PRN Hypoglycemia Simple Syrup 30 ml 01/09/20 12:01 Simple Syrup 15 Ml FEEDTUBE PRN PRN Hypoglycemia Sodium Bicarbonate 325 mg 01/09/20 12:01 03/07/20 12:56 Sodium Bicarbonate 325 Mg Tab FEEDTUBE 325 mg PRN PRN Administration For Clogged Feeding Tube Sodium Chloride 10 ml 11/24/19 10:00 03/29/20 09:47 Sodium Chloride 0.9% 10 Ml Flush Syringe IV 10 ml BID CAR Administration Tamsulosin HCl 0.8 mg 12/20/19 22:00 03/28/20 21:50 Tamsulosin 0.4 Mg Cap PO 0.8 mg QHS CAR Administration Nutrition/Malnutrition Assess - Dietary Evaluation Nutrition/Malnutrition Findings: Nutrition Notes Start: 11/24/19 12:22 Freq: Status: Active Protocol: Document 03/28/20 10:09 BORA (Rec: 03/28/20 10:20 BORA [id number]) Nutrition Notes Initial or Follow up Reassessment Current Diagnosis COPD,Sepsis,Heart Failure, Respiratory Failure Other Pertinent Diagnosis Bilat pneu, dysphagia Current Diet TF - Osmolite 1.5 at 65ml/hr Labs/Tests Reviewed Pertinent Medications Lasix Height 6 ft 2 in Weight 130.5 kg [place] Body Weight (kg) 86.36 BMI 36.9 Weight Status Obese Subjective/Other Information Pt with intractable nausea at times; TF continues to infuse at 55ml/hr, as pt unable to tolerate higher rate. Pt remains on vent support. Awaiting placement. Percent of energy/protein needs met: 76% energy (using unadjusted needs) 77% pro Burn Absent Trauma Absent Minimum of two criteria Yes #2 Nutrition Diagnosis Malnutrition Diagnosis Progress(for reassessment Continues documentation) #1 Nutrition Diagnosis Inadequate oral intake Diagnosis Progress(for reassessment Continues documentation) Is patient on ventilator? Yes Is Patient Ambulatory and/or Out of Bed No REE-([facility]-confined to bed) 2608.188 Kcal/Kg value to use for calculation 16 Approximate Energy Requirements Using 2088 kcal/Kg Calculation Used for Recommendations Kcal/kg Additional Notes Pro needs 1-1.2g/kg adjBW: 108 -130g/day Fluid needs per MD. Nutrition Intervention Nutrition Support: Change TF rate to Osmolite 1.5 at 55ml/hr with 150ml water flush q4h. Kcal 1,980 Protein (gm) 83 Fluid (mL) 1,006 Goal #1 TF tolerance Goal #2 TF to meet at least 65-70% energy and 75% pro needs Follow-Up By: 04/04/20 Additional Comments F/U: TF tolerance, wt, vent status
[2020-03-29] MEDS: TAMSULOSIN 0.4 MG CAP PO SCH (22:20)
[2020-03-29] MEDS: POLYETHYLENE GLYCOL 3350 17 GM POWDER PO SCH (22:21)
[2020-03-30] MEDS: ALPRAZolam 0.5 MG TAB PO PRN ×2 (00:16→10:17)
[2020-03-30] MEDS: MORPHINE 2 MG/1 ML INJ IV PRN ×2 (00:53→20:41)
[2020-03-30] MEDS: ONDANSETRON 4 MG/2 ML INJ IV PRN ×2 (05:16→20:40)
[2020-03-30] MEDS: ACETAMINOPHEN 325 MG/10.15 ML ORAL LIQD UNIT DOSE FEEDTUBE PRN (05:16)
[2020-03-30] MEDS: INSULIN REGULAR, HUMAN 100 UNIT/ML 3ML VIAL SUB-Q SCH ×3 (07:38→17:07)
--- NOTE | 2020-03-30 09:11 | Progress Note ---
Assessment and Plan Assessment and plan: Patient is off ventilator, tracheostomy on T-piece --Intractable nausea; resolved --Acute on chronic hypoxemic respiratory failure; Patient has tracheostomy weaned off vent On T-piece, 15 L of oxygen Pulmonary critical following --Acute exacerbation of COPD; Patient is currently on T-piece Continue nebulizers --Left lower lobe PE; Continue Eliquis, ventilatory support --Acute right lower extremity DVT; Patient is on Eliquis --Bilateral multifocal pneumonia/community-acquired Completed antibiotics, improved --Severe sepsis/bilateral pneumonia: Completed antibiotics COVID-19 test; 11/24/2019; negative 11/26/2019; negative 12/29/2019: Negative --Paroxysmal atrial fibrillation; Now rate controlled, Stable on amiodarone and Eliquis --Acute on chronic combined systolic and diastolic congestive heart failure Ischemic cardiomyopathy left ventricular ejection fraction 40 to 45% --H/o CAD [[facility] 12/2018 in-stent restenosis] Patient is stable on current cardiac medications --Hypertensive emergency; present on admission Reasonable blood pressures, continue current antihypertensives As needed medications --History of alcohol abuse/alcohol withdrawal; Was on CIWA protocol, now stable --Oropharyngeal dysphagia; status post PEG placement Continue PEG feeds per protocol --History of partial small bowel obstruction; resolved Surgery evaluated. --Obesity; BMI 34.7 Patient needs weight reduction when medically stable --Severe protein calorie malnutrition/hypoalbuminemia Nutrition supplements, dietitian following, PEG feeds --DVT prophylaxis;Eliquis --Full CODE STATUS 03/19/2020. Continue current vent per pulmonary recommendations. Pressure support ventilation trials as tolerated. Continue trach care, secretion control and airway management. Mobility protocols for pressure ulcer prophylaxis. 03/20/2020. Rate better controlled on digoxin and metoprolol per cardiology. Patient currently off amiodarone due to elevated liver enzymes. Continue anticoagulation with Eliquis. IV metoprolol as needed. No statins for now secondary to elevated liver enzymes. Patient remains on AC mode ventilation rate 12, tidal volume 450, FiO2 30% and PEEP of 6. Cont. PSV as figueroa. Continue trach care, secretion control and airway management. Mobility protocols for pressure ulcer prophylaxis. Patient is uninsured and his only d/c option is to return home with family. 03/21/2020. Patient still with elevated heart rate but better on digoxin and metoprolol per cardiology. Patient currently off amiodarone due to elevated liver enzymes. Continue anticoagulation with Eliquis. IV metoprolol as needed. No statins for now secondary to elevated liver enzymes. Patient remains on AC mode mechanical ventilation with rate 12, tidal volume 450, FiO2 30% and PEEP of 6. Continue PSV trials as tolerated. Continue trach care, secretion control and airway management. Mobility protocols for pressure ulcer prophylaxis. Patient is uninsured and his only d/c option is to return home with family. 03/22/2020; patient remains on ventilatory support, continue to wean as tolerated, trach care Awaiting LTAC placement, however patient has multiple social issues, mobility protocols blood pressure ulcers DVT prophylaxis, will continue current management 03/23/2020; patient remains on ventilatory support, tracheostomy, on CPAP trial 03/25/2020; patient with tracheostomy remains on ventilatory support, complains of mild nausea 03/26/2020; clinically no change, tracheostomy on vent, unable to wean 03/27/2020; remains on ventilatory support, wean as tolerated, social issues, awaiting placement 03/28/2020; wean off vent as tolerated, awaiting LTAC placement, multiple social issues 03/29/2020; patient is off vent, tracheostomy on T-piece 15 L of oxygen closely monitor 03/30/2020; patient is weaned off ventilator, on T-piece feeling much better Plan of care reviewed with the patient and his nurse The high probability of a clinically significant, sudden or life threatening deterioration of the [Respiratory, cardiovascular & neurological] system(s) required my full and direct attention, intervention and personal management. The aggregate critical care time was [35] minutes without overlap. Time includes spent on [x] Data Review and interpretation [x] Patient assessment and monitoring of vital signs [x] Documentation [x] Medication orders and management Plan of care reviewed with the patient and his nurse History Interval history: I have seen and examined the patient at the bedside Patient's chart and medications reviewed Feels slightly better Vital signs noted Hospitalist Physical - Constitutional Vitals: Temp Pulse Resp BP Pulse Ox 97.8 F 124 H 25 H 101/73 98 03/30/20 04:00 03/30/20 07:31 03/30/20 07:31 03/30/20 07:31 03/30/20 08:42 General appearance: Present: no acute distress, well-nourished, other (Tracheostomy on T-piece) - EENT Eyes: Present: PERRL, EOM intact - Neck Neck: Present: supple, normal ROM - Respiratory Respiratory effort: normal Respiratory: bilateral: diminished, rhonchi, negative: rales, wheezing - Cardiovascular Rhythm: regular Heart Sounds: Present: S1 & S2 - Extremities Extremities: no ischemia, No edema - Abdominal General gastrointestinal: soft, non-tender, non-distended, normal bowel sounds - Integumentary Integumentary: Present: clear, warm - Psychiatric Psychiatric: cooperative - Neurologic Neurologic: moves all extremities, other (Urostomy) HEART Score - HEART Score Troponin: Troponin T < 0.010 ng/mL (0.00-0.029) 01/19/20 01:35 Results - Labs CBC & Chem 7: 03/22/20 06:39 03/26/20 04:20 Labs: Laboratory Last Values WBC 6.0 K/mm3 (4.5-11.0) 03/22/20 06:39 RBC 3.97 M/mm3 (3.65-5.03) 03/22/20 06:39 Hgb 9.7 gm/dl (11.8-15.2) L 03/22/20 06:39 Hct 30.7 % (35.5-45.6) L 03/22/20 06:39 MCV 77 fl (84-94) L 03/22/20 06:39 MCH 25 pg (28-32) L 03/22/20 06:39 MCHC 32 % (32-34) 03/22/20 06:39 RDW 22.2 % (13.2-15.2) H 03/22/20 06:39 Plt Count 166 K/mm3 (140-440) 03/22/20 06:39 Lymph % (Auto) 32.8 % (13.4-35.0) 03/22/20 06:39 [place] % (Auto) 9.0 % (0.0-7.3) H 03/22/20 06:39 Eos % (Auto) 2.4 % (0.0-4.3) 03/22/20 06:39 Baso % (Auto) 0.3 % (0.0-1.8) 03/22/20 06:39 Lymph # (Auto) 2.0 K/mm3 (1.2-5.4) 03/22/20 06:39 [place] # (Auto) 0.5 K/mm3 (0.0-0.8) 03/22/20 06:39 Eos # (Auto) 0.1 K/mm3 (0.0-0.4) 03/22/20 06:39 Baso # (Auto) 0.0 K/mm3 (0.0-0.1) 03/22/20 06:39 Add Manual Diff Complete 02/15/20 06:59 Total Counted 100 02/15/20 06:59 Seg Neuts % (Manual) 58.0 % (40.0-70.0) 02/15/20 06:59 Band Neutrophils % 0 % 02/15/20 06:59 Seg Neutrophils % 55.5 % (40.0-70.0) 03/22/20 06:39 Lymphocytes % (Manual) 34.0 % (13.4-35.0) 02/15/20 06:59 Reactive Lymphs % (Man) 1.0 % 02/15/20 06:59 Monocytes % (Manual) 4.0 % (0.0-7.3) 02/15/20 06:59 Eosinophils % (Manual) 0 % (0.0-4.3) 02/15/20 06:59 Basophils % (Manual) 2.0 % (0.0-1.8) H 02/15/20 06:59 Metamyelocytes % 1.0 % 02/15/20 06:59 Myelocytes % 0 % 02/15/20 06:59 Promyelocytes % 0 % 02/15/20 06:59 Blast Cells % 0 % 02/15/20 06:59 Nucleated RBC % 1.0 % (0.0-0.9) H 02/15/20 06:59 Seg Neutrophils # Man 5.9 K/mm3 (1.8-7.7) 02/15/20 06:59 Seg Neutrophils # 3.4 K/mm3 (1.8-7.7) 03/22/20 06:39 Band Neutrophils # 0.0 K/mm3 02/15/20 06:59 Lymphocytes # (Manual) 3.5 K/mm3 (1.2-5.4) 02/15/20 06:59 Abs React Lymphs (Man) 0.1 K/mm3 02/15/20 06:59 Monocytes # (Manual) 0.4 K/mm3 (0.0-0.8) 02/15/20 06:59 Eosinophils # (Manual) 0.0 K/mm3 (0.0-0.4) 02/15/20 06:59 Basophils # (Manual) 0.2 K/mm3 (0.0-0.1) H 02/15/20 06:59 Metamyelocytes # 0.1 K/mm3 02/15/20 06:59 Myelocytes # 0.0 K/mm3 02/15/20 06:59 Promyelocytes # 0.0 K/mm3 02/15/20 06:59 Blast Cells # 0.0 K/mm3 02/15/20 06:59 WBC Morphology Not Reportable 02/15/20 06:59 Hypersegmented Neuts Not Reportable 02/15/20 06:59 Hyposegmented Neuts Not Reportable 02/15/20 06:59 Hypogranular Neuts Not Reportable 02/15/20 06:59 Smudge Cells Not Reportable 02/15/20 06:59 Toxic Granulation Not Reportable 02/15/20 06:59 Toxic Vacuolation Not Reportable 02/15/20 06:59 Dohle Bodies Not Reportable 02/15/20 06:59 Pelger-Huet Anomaly Not Reportable 02/15/20 06:59 Hector Rods Not Reportable 02/15/20 06:59 Platelet Estimate Consistent w auto 02/15/20 06:59 Clumped Platelets Not Reportable 02/15/20 06:59 Plt Clumps, EDTA Not Reportable 02/15/20 06:59 Large Platelets Not Reportable 02/15/20 06:59 Giant Platelets Not Reportable 02/15/20 06:59 Platelet Satelliting Not Reportable 02/15/20 06:59 Plt Morphology Comment Giant platelets 02/15/20 06:59 RBC Morphology Not Reportable 02/15/20 06:59 Dimorphic RBCs Not Reportable 02/15/20 06:59 Polychromasia Not Reportable 02/15/20 06:59 Hypochromasia 1+ 02/15/20 06:59 Poikilocytosis Few 02/15/20 06:59 Anisocytosis 1+ 02/15/20 06:59 Microcytosis Not Reportable 02/15/20 06:59 Macrocytosis Not Reportable 02/15/20 06:59 Spherocytes Not Reportable 02/15/20 06:59 Pappenheimer Bodies Not Reportable 02/15/20 06:59 Sickle Cells Not Reportable 02/15/20 06:59 Target Cells 1+ 02/15/20 06:59 Tear Drop Cells Few 02/15/20 06:59 Ovalocytes Not Reportable 02/15/20 06:59 Helmet Cells Not Reportable 02/15/20 06:59 Gottlieb-Blanchard Bodies Not Reportable 02/15/20 06:59 [place] Rings Not Reportable 02/15/20 06:59 Tamms Cells Not Reportable 02/15/20 06:59 Bite Cells Not Reportable 02/15/20 06:59 Crenated Cell Not Reportable 02/15/20 06:59 Elliptocytes Few 02/15/20 06:59 Acanthocytes (Spur) Not Reportable 02/15/20 06:59 Rouleaux Not Reportable 02/15/20 06:59 Hemoglobin C Crystals Not Reportable 02/15/20 06:59 Schistocytes Not Reportable 02/15/20 06:59 Malaria parasites Not Reportable 02/15/20 06:59 Clifford Bodies Not Reportable 02/15/20 06:59 Hem Pathologist Commnt No 02/15/20 06:59 PT 27.0 Sec. (12.2-14.9) H 02/07/20 15:03 INR 2.46 (0.87-1.13) H 02/07/20 15:03 APTT 31.5 Sec. (24.2-36.6) 01/22/20 09:58 Heparin Anti-Xa Level 1.34 U.I./ml (0.3-0.7) H 01/22/20 04:45 ABG pH 7.565 (7.320-7.450) H 03/29/20 21:00 POC ABG pCO2 32.4 mmHg (32.0-48.0) 03/29/20 21:00 ABG pCO2 47.8 mm Hg 02/20/20 06:45 POC ABG pO2 66.8 mmHg (83-108) L 03/29/20 21:00 ABG pO2 88.7 mm Hg (80.0-90.0) 02/20/20 06:45 POC ABG HCO3 28.7 03/29/20 21:00 ABG HCO3 33.3 mmol/L (20.0-26.0) H 02/20/20 06:45 ABG O2 Saturation 97.2 % (95.0-99.0) 02/20/20 06:45 ABG O2 Content 13.3 (0.0-44) 02/20/20 06:45 POC ABG Base Excess 6.5 03/29/20 21:00 ABG Base Excess 8.4 mmol/L (-2.0-3.0) H 02/20/20 06:45 ABG Hemoglobin 10.6 (12.0-17.5) L 03/29/20 21:00 ABG Oxyhemoglobin 92.6 (94-98) L 03/29/20 21:00 ABG Carboxyhemoglobin 2.9 % (0.0-5.0) 02/20/20 06:45 ABG Methemoglobin 0.3 (0.0-1.5) 03/29/20 21:00 ABG Sodium 134.8 mmol/L (136.0-145.0) L 03/29/20 21:00 ABG Potassium 4.3 mmol/L (3.40-4.50) 03/29/20 21:00 ABG Chloride 99.0 mmol/L (98-107) 03/29/20 21:00 ABG Glucose 174 mg/dL (65-95) H 03/29/20 21:00 Oxyhemoglobin 94.1 % (95.0-99.0) L 02/20/20 06:45 Carboxyhemoglobin 1.8 (0.5-1.5) H 03/29/20 21:00 FiO2 40.0 03/29/20 21:00 Sodium 140 mmol/L (137-145) 03/26/20 04:20 Potassium 4.3 mmol/L (3.6-5.0) 03/26/20 04:20 Chloride 99.3 mmol/L (98-107) 03/26/20 04:20 Carbon Dioxide 26 mmol/L (22-30) D 03/26/20 04:20 Anion Gap 19 mmol/L 03/26/20 04:20 BUN 19 mg/dL (9-20) 03/26/20 04:20 Creatinine 0.6 mg/dL (0.8-1.3) L 03/26/20 04:20 Estimated GFR > 60 ml/min 03/26/20 04:20 BUN/Creatinine Ratio 32 % 03/26/20 04:20 Glucose 182 mg/dL (75-100) H 03/26/20 04:20 POC Glucose 172 mg/dL (70-105) H 03/30/20 05:11 Lactic Acid 1.60 mmol/L (0.7-2.0) 02/03/20 12:49 Ferritin 84.4 ng/mL (30.0-300.0) 11/24/19 04:53 Calcium 8.9 mg/dL (8.4-10.2) 03/26/20 04:20 Phosphorus 4.10 mg/dL (2.5-4.5) 01/31/20 19:24 Magnesium 2.40 mg/dL (1.7-2.3) H 02/10/20 07:40 Total Bilirubin 0.90 mg/dL (0.1-1.2) 03/18/20 15:34 Direct Bilirubin 0.9 mg/dL (0-0.2) H 02/08/20 19:00 Indirect Bilirubin 0.4 mg/dL 02/08/20 19:00 Total Creatine Kinase 141 units/L (55-170) 11/24/19 02:53 CK-MB (CK-2) 4.3 ng/mL (0.0-4.0) H 11/24/19 02:53 AST 23 units/L (5-40) 03/18/20 15:34 CK-MB (CK-2) Rel Index 3.0 (0-4) 11/24/19 02:53 ALT 22 units/L (7-56) 03/18/20 15:34 Alkaline Phosphatase 96 units/L (35-129) 03/18/20 15:34 C-Reactive Protein 8.50 mg/dL (0.00-1.30) H 12/01/19 12:16 Ammonia 35.0 umol/L (25-60) 02/03/20 12:49 Lactate Dehydrogenase 228 units/L (91-180) H 12/19/19 04:45 Troponin T < 0.010 ng/mL (0.00-0.029) 01/19/20 01:35 NT-Pro-B Natriuret Pep 3866 pg/mL (0-900) H 01/01/20 10:40 Total Protein 6.2 g/dL (6.3-8.2) L 03/18/20 15:34 Albumin 2.8 g/dL (3.9-5) L 03/18/20 15:34 Albumin/Globulin Ratio 0.8 % 03/18/20 15:34 Procalcitonin 0.44 ng/mL (<0.15) 02/03/20 12:49 Arterial Blood Glucose 174 mg/dL (65-95) H 03/29/20 21:00 Arterial Blood Ionized Calcium 4.5 mg/dL (4.6-5.3) L 03/29/20 21:00 Urine Color [place] (Yellow) 02/26/20 07:50 Urine Turbidity Clear (Clear) 02/26/20 07:50 Urine pH 5.0 (5.0-7.0) 02/26/20 07:50 Ur Specific [place] 1.025 (1.003-1.030) 02/26/20 07:50 Urine Protein 30 mg/dl mg/dL (Negative) 02/26/20 07:50 Urine Glucose (UA) Neg mg/dL (Negative) 02/26/20 07:50 Urine Ketones Neg mg/dL (Negative) 02/26/20 07:50 Urine Blood Sm (Negative) 02/26/20 07:50 Urine Nitrite Neg (Negative) 02/26/20 07:50 Urine Bilirubin Neg (Negative) 02/26/20 07:50 Urine Urobilinogen 4.0 mg/dL (<2.0) 02/26/20 07:50 Ur Leukocyte Esterase Lg (Negative) 02/26/20 07:50 Urine WBC (Auto) > 182.0 /HPF (0.0-6.0) H 02/26/20 07:50 Urine RBC (Auto) 84.0 /HPF (0.0-6.0) 02/26/20 07:50 U Epithel Cells (Auto) 2.0 /HPF (0-13.0) 12/31/19 18:04 Urine Bacteria (Auto) 4+ /HPF (Negative) 02/26/20 07:50 Urine WBC Clumps 2+ /HPF 02/26/20 07:50 Urine Mucus 1+ /HPF 02/26/20 07:50 Urine Creatinine 57.4 mg/dL (0.1-20.0) H 01/31/20 Unknown Urine Sodium 59 mmol/L 01/31/20 Unknown Vancomycin Trough 14.2 ug/mL (5.0-20.0) 12/13/19 15:01 Digoxin 0.8 ng/mL (0.9-2.0) L 03/22/20 06:39 Coronavirus (PCR) Negative (Negative) 12/29/19 10:07 Hepatitis A IgM Ab Non-reactive (NonReactive) 02/05/20 06:37 Hep Bs Antigen Non-reactive (Negative) 02/05/20 06:37 Hep B Core IgM Ab Non-reactive (NonReactive) 02/05/20 06:37 Hepatitis C Antibody Non-reactive (NonReactive) 02/05/20 06:37 Blood Type O POSITIVE 01/21/20 13:00 Antibody Screen Negative 01/21/20 13:00 - Diagnostic Impressions Diagnostic Impressions: Echocardiogram 11/29/19 07:37 Transthoracic Echocardiogram Indication: CHF BP: 116/72 HR: 33 Conclusions *The study is technically limited due to poor acoustic windows. *Global left ventricular systolic function is normal. *The estimated ejection fraction is 50-55%. *Mild concentric left ventricular hypertrophy is observed. *There is trace of mitral regurgitation. *There is mild tricuspid regurgitation. Findings Procedure Info: The study quality is poor. The study is technically limited due to poor acoustic windows. The study is technically limited due to patient body habitus. Left Ventricle: The left ventricular chamber size is normal. Mild concentric left ventricular hypertrophy is observed. Global left ventricular systolic function is normal. The estimated ejection fraction is 50-55%. Left Atrium: The left atrial chamber size is normal. Right Ventricle: The right ventricular cavity size is normal. Right Atrium: The right atrial cavity size is normal. Aortic Valve: The aortic valve leaflets are moderately thickened. There is trace of aortic regurgitation. There is no evidence of aortic stenosis. Mitral Valve: The mitral valve leaflets are mildly thickened. There is trace of mitral regurgitation. There is no evidence of mitral stenosis. Tricuspid Valve: There is mild tricuspid regurgitation. No pulmonary hypertension is noted. Pulmonic Valve: There is trace pulmonic regurgitation. Pericardium: There is no pericardial effusion. Aorta: There is no dilatation of the aortic root. Venous: The inferior vena cava appears normal in size. Contrast: Definity was used to optimize study. Intravenous contrast was used to enhance endocardial border definition. Measurements Chambers 2D Name Value Normal Range Ao root diameter (2D) 3.4 cm (2 - 3.7) Aortic Valve Name Value Normal Range AV Vmax 0.98 m/sec - AV VTI 16.76 cm - AV peak gradient 3.83 mmHg - AV mean gradient 2.57 mmHg - LVOT diameter 3.11 cm - LVOT Vmax 0.68 m/sec - LVOT VTI 11.52 cm - LVOT peak gradient 1.84 mmHg - LVOT mean gradient 1.27 mmHg - SV LVOT 87.31 ml - MALOU (continuity Vmax) 5.24 cm2 - MALOU (continuity VTI) 5.21 cm2 - Tricuspid Valve Name Value Normal Range IVC diameter 2.24 cm (1.2 - 2.3) Hoffman/IV: Voiding Method Indwelling Catheter IV Catheter Type [Left INT / Saline Lock Antecubital] IV Catheter Type [Right INT / Saline Lock Forearm] IV Catheter Type [Right Hand] Peripheral IV IV Catheter Type [Right Upper INT / Saline Lock arm] IV Catheter Type [Left Upper Mid-line arm] IV Catheter Type [Left Forearm Peripheral IV ] IV Catheter Type [Left Hand] Peripheral IV IV Catheter Type [Left Wrist] INT / Saline Lock IV Catheter Type [Right Peripheral IV Antecubital] Active Medications - Current Medications Current Medications: Generic Name Dose Route Start Last Admin Trade Name Freq PRN Reason Stop Dose Admin Acetaminophen 650 mg 03/12/20 04:29 03/30/20 05:16 Acetaminophen 325 Mg/10.15 Ml Oral Liqd Unit Dose FEEDTUBE 650 mg Q6H PRN Administration Pain, Mild (1-3) Alprazolam 0.5 mg 03/26/20 09:26 03/30/20 00:16 Alprazolam 0.5 Mg Tab PO 0.5 mg TID PRN Administration Anxiety Lipase/Protease/Amylase 1 each 01/09/20 12:01 03/26/20 14:03 Lipase 10,500/Protease 25,000/Amylase 43,750 (Units) Dr Lauren FEEDTUBE 1 each PRN PRN Administration For Clogged Feeding Tube Apixaban 5 mg 01/22/20 22:00 03/29/20 22:21 Apixaban 5 Mg Tab PO 5 mg Q12HR CAR Administration Protocol Atorvastatin Calcium 40 mg 01/20/20 22:00 03/29/20 22:20 Atorvastatin 40 Mg Tab PO 40 mg QHS CAR Administration Clopidogrel Bisulfate 75 mg 01/21/20 06:00 03/29/20 09:47 Clopidogrel 75 Mg Tab PO 75 mg QDAY CAR Administration Dextrose 50 ml 01/31/20 18:51 02/05/20 00:56 Dextrose 50% In Water (25gm) 50 Ml Syringe IV 50 ml Q30MIN PRN Administration Hypoglycemia Protocol Digoxin 0.125 mg 02/25/20 17:00 03/29/20 18:05 Digoxin 0.125 Mg Tab PO 0.125 mg DAILY@1700 CAR Administration Docusate Sodium 100 mg 02/22/20 10:00 03/29/20 22:20 Docusate Sodium 100 Mg/10 Ml Oral Liqd FEEDTUBE 100 mg BID CAR Administration Furosemide 20 mg 03/26/20 10:00 03/29/20 09:46 Furosemide 20 Mg Tab PO 20 mg QDAY CAR Administration Glycopyrrolate 2 mg 02/24/20 21:00 03/29/20 22:28 Glycopyrrolate 2 Mg Tab PO 2 mg TID CAR Administration Haloperidol Lactate 5 mg 02/10/20 14:20 03/19/20 23:26 Haloperidol Lactate 5 Mg/1 Ml Inj IV 5 mg Q6H PRN Administration Agitation Hydrophilic Ointment 1 applic 01/17/20 15:26 02/24/20 23:20 Lip Therapy Vaseline TP 1 applic DIRECT PRN Administration Dry Lips Insulin Human Regular 0 unit 02/01/20 18:00 03/30/20 07:38 Humulin R SUB-Q Not Given Q6H [facility] Protocol Lansoprazole 30 mg 02/05/20 16:00 03/29/20 09:46 Lansoprazole 30 Mg Solutab FEEDTUBE 30 mg QDAY CAR Administration Metoprolol Tartrate 5 mg 01/11/20 08:00 03/18/20 16:52 Metoprolol Tartrate 5 Mg/5 Ml Inj IV 5 mg Q6H PRN Administration SEE INSTRUCTIONS Metoprolol Tartrate 12.5 mg 02/28/20 12:00 03/29/20 22:20 Metoprolol Tartrate 25 Mg Tab FEEDTUBE 12.5 mg BID CAR Administration Midodrine 15 mg 02/04/20 16:00 03/29/20 18:06 Midodrine 5 Mg Tab PO 15 mg TID@0800,1200,1600 CAR Administration Morphine Sulfate 2 mg 01/06/20 15:41 03/30/20 00:53 Morphine 2 Mg/1 Ml Inj IV 2 mg Q4H PRN Administration Pain, Moderate (4-6) Multi-Ingred Cream/Lotion/Oil/Oint 1 applic 02/01/20 15:52 Artificial Tears Ophth Oint OU Q4HR PRN Dry Eye(s) Nitroglycerin 0.4 mg 01/19/20 21:09 01/20/20 03:03 Nitroglycerin 0.4 Mg Tab Subl SL 0.4 mg .Q5MIN PRN Administration Chest Pain Ondansetron HCl 4 mg 03/25/20 08:01 03/30/20 05:16 Ondansetron 4 Mg/2 Ml Inj IV 4 mg Q4H PRN Administration Nausea And Vomiting Polyethylene Glycol 17 gm 12/04/19 22:00 03/29/20 22:21 Miralax 3350 PO 17 gm QHS CAR Administration Quetiapine Fumarate 300 mg 01/13/20 22:00 03/29/20 22:21 Quetiapine 100 Mg Tab PO 300 mg BID CAR Administration Simple Syrup 15 ml 01/09/20 12:01 Simple Syrup 15 Ml FEEDTUBE PRN PRN Hypoglycemia Simple Syrup 30 ml 01/09/20 12:01 Simple Syrup 15 Ml FEEDTUBE PRN PRN Hypoglycemia Sodium Bicarbonate 325 mg 01/09/20 12:01 03/07/20 12:56 Sodium Bicarbonate 325 Mg Tab FEEDTUBE 325 mg PRN PRN Administration For Clogged Feeding Tube Sodium Chloride 10 ml 11/24/19 10:00 03/29/20 22:22 Sodium Chloride 0.9% 10 Ml Flush Syringe IV 10 ml BID CAR Administration Tamsulosin HCl 0.8 mg 12/20/19 22:00 03/29/20 22:20 Tamsulosin 0.4 Mg Cap PO 0.8 mg QHS CAR Administration Nutrition/Malnutrition Assess - Dietary Evaluation Nutrition/Malnutrition Findings: Nutrition Notes Start: 11/24/19 12:22 Freq: Status: Active Protocol: Document 03/28/20 10:09 JULYJONELLE (Rec: 03/28/20 10:20 BORA [id number]) Nutrition Notes Initial or Follow up Reassessment Current Diagnosis COPD,Sepsis,Heart Failure, Respiratory Failure Other Pertinent Diagnosis Bilat pneu, dysphagia Current Diet TF - Osmolite 1.5 at 65ml/hr Labs/Tests Reviewed Pertinent Medications Lasix Height 6 ft 2 in Weight 130.5 kg [place] Body Weight (kg) 86.36 BMI 36.9 Weight Status Obese Subjective/Other Information Pt with intractable nausea at times; TF continues to infuse at 55ml/hr, as pt unable to tolerate higher rate. Pt remains on vent support. Awaiting placement. Percent of energy/protein needs met: 76% energy (using unadjusted needs) 77% pro Burn Absent Trauma Absent Minimum of two criteria Yes #2 Nutrition Diagnosis Malnutrition Diagnosis Progress(for reassessment Continues documentation) #1 Nutrition Diagnosis Inadequate oral intake Diagnosis Progress(for reassessment Continues documentation) Is patient on ventilator? Yes Is Patient Ambulatory and/or Out of Bed No REE-([place] [place]-confined to bed) 2608.188 Kcal/Kg value to use for calculation 16 Approximate Energy Requirements Using 2088 kcal/Kg Calculation Used for Recommendations Kcal/kg Additional Notes Pro needs 1-1.2g/kg adjBW: 108 -130g/day Fluid needs per MD. Nutrition Intervention Nutrition Support: Change TF rate to Osmolite 1.5 at 55ml/hr with 150ml water flush q4h. Kcal 1,980 Protein (gm) 83 Fluid (mL) 1,006 Goal #1 TF tolerance Goal #2 TF to meet at least 65-70% energy and 75% pro needs Follow-Up By: 04/04/20 Additional Comments F/U: TF tolerance, wt, vent status
[2020-03-30] MEDS: METOPROLOL TARTRATE 25 MG TAB FEEDTUBE SCH ×2 (10:16→21:00)
[2020-03-30] MEDS: GLYCOPYRROLATE 2 MG TAB PO SCH ×3 (10:16→20:42)
[2020-03-30] MEDS: FUROSEMIDE 20 MG TAB PO SCH (10:16)
[2020-03-30] MEDS: CLOPIDOGREL 75 MG TAB PO SCH (10:17)
[2020-03-30] MEDS: LANSOPRAZOLE 30 MG SOLUTAB FEEDTUBE SCH (10:17)
[2020-03-30] MEDS: MIDODRINE 5 MG TAB PO SCH ×3 (10:17→16:56)
[2020-03-30] MEDS: QUEtiapine 100 MG TAB PO SCH ×3 (10:17→23:42)
[2020-03-30] MEDS: APIXABAN 5 MG TAB PO SCH ×3 (10:17→23:40)
--- NOTE | 2020-03-30 13:31 | Progress Note ---
Assessment and Plan - Patient Problems (1) Paroxysmal atrial fibrillation Current Visit: Yes Status: Acute Plan to address problem: Continue current management of atrial fibrillation on a rate control strategy and oral anticoagulation, stable cardiac status. Subjective Date of service: 03/30/20 Principal diagnosis: Ac hypoxemic resp failure; Pneumonia; PUI COVID-19; CHF; COPD; HTN Interval history: Patient is awake, on the vent via his trach. Heart rate is 120s, atrial fibrillation. Objective Vital Signs Temp Pulse Resp Resp BP Pulse Ox Pulse Ox 03/30/20 12:23 90 03/30/20 10:16 129 H 91/72 03/30/20 09:01 127 H 25 H 96/75 90 03/30/20 08:42 98 03/30/20 08:41 99 03/30/20 08:30 126 H 20 94/70 98 03/30/20 08:00 97.7 F 127 H 24 100/74 96 03/30/20 07:31 124 H 25 H 101/73 99 03/30/20 07:01 122 H 21 91/45 95 03/30/20 06:31 124 H 24 91/45 96 03/30/20 06:16 24 03/30/20 06:01 122 H 25 H 91/45 96 03/30/20 05:31 126 H 22 91/45 96 03/30/20 05:16 24 03/30/20 05:15 20 03/30/20 05:01 126 H 24 110/65 96 03/30/20 04:30 126 H 24 105/82 98 03/30/20 04:00 97.8 F 120 H 23 103/79 96 03/30/20 03:30 123 H 20 100/70 96 03/30/20 03:00 130 H 22 101/74 97 03/30/20 02:30 126 H 23 99/75 97 03/30/20 02:00 127 H 32 H 101/73 96 03/30/20 01:31 135 H 29 H 105/81 95 03/30/20 01:23 30 H 03/30/20 01:00 131 H 31 H 114/75 96 03/30/20 00:53 47 H 03/30/20 00:51 117 H 34 H 107/80 97 03/30/20 00:45 122 H 03/30/20 00:41 136 H 27 H 107/80 97 03/30/20 00:40 30 H 03/30/20 00:30 132 H 30 H 107/80 96 03/30/20 00:21 131 H 57 H 102/70 97 03/30/20 00:11 131 H 25 H 102/70 98 03/30/20 00:00 98.5 F 119 H 26 H 102/70 98 03/29/20 23:51 121 H 23 97/58 98 03/29/20 23:41 114 H 22 97/58 99 03/29/20 23:31 115 H 21 97/58 98 03/29/20 23:21 114 H 22 103/77 98 03/29/20 23:11 124 H 19 104/68 98 03/29/20 23:01 126 H 22 104/68 98 03/29/20 22:51 118 H 22 104/70 99 03/29/20 22:41 121 H 23 103/77 99 03/29/20 22:30 140 H 24 103/77 99 03/29/20 22:21 124 H 24 105/67 98 03/29/20 22:20 133 H 104/70 03/29/20 22:11 141 H 27 H 104/70 100 03/29/20 22:01 122 H 23 104/70 98 03/29/20 21:50 121 H 25 H 105/67 98 03/29/20 21:40 129 H 24 105/67 98 03/29/20 21:30 129 H 23 105/67 99 03/29/20 21:21 127 H 28 H 107/70 98 03/29/20 21:11 129 H 26 H 107/70 98 03/29/20 21:01 123 H 22 107/70 98 03/29/20 20:51 135 H 22 101/74 98 03/29/20 20:41 131 H 27 H 101/74 98 03/29/20 20:30 133 H 22 101/74 95 03/29/20 20:21 129 H 43 H 111/77 96 03/29/20 20:15 96 03/29/20 20:11 127 H 34 H 111/77 95 03/29/20 20:01 132 H 21 101/77 97 03/29/20 20:00 98.6 F 03/29/20 19:51 128 H 24 101/77 96 03/29/20 19:41 132 H 30 H 101/77 96 03/29/20 19:30 123 H 25 H 101/77 97 03/29/20 19:21 129 H 23 93/75 98 03/29/20 19:14 131 H 03/29/20 19:11 126 H 28 H 93/75 96 03/29/20 19:01 136 H 27 H 93/75 95 03/29/20 18:51 121 H 21 108/86 98 03/29/20 18:41 151 H 31 H 108/86 95 03/29/20 18:31 131 H 28 H 108/86 98 03/29/20 18:05 147 H 03/29/20 18:01 133 H 30 H 122/92 98 03/29/20 17:31 135 H 29 H 96/77 97 03/29/20 17:01 151 H 36 H 85/64 85 03/29/20 16:31 139 H 28 H 97/75 95 03/29/20 16:01 130 H 21 85/64 93 03/29/20 16:00 98.5 F 03/29/20 15:53 95 03/29/20 15:31 139 H 22 103/73 95 03/29/20 15:01 142 H 27 H 72/57 94 03/29/20 14:44 98 03/29/20 14:31 180 H 18 113/88 89 03/29/20 14:00 133 H 24 97/72 97 03/29/20 13:31 135 H 24 97/72 96 - Physical Examination General: No Apparent Distress, Other (s/p trach) HEENT: Positive: PERRL Neck: Positive: neck supple, Other (s/p trach) Cardiac: Positive: irregularly irregular Lungs: Positive: Decreased Breath Sounds Neuro: Positive: Grossly Intact, Weakness Abdomen: Positive: Soft Skin: Positive: Clear Extremities: Absent: edema - Allied health notes Allied health notes reviewed: nursing
[2020-03-30] MEDS: DOCUSATE SODIUM 100 MG/10 ML ORAL LIQD FEEDTUBE SCH ×3 (13:48→23:40)
[2020-03-30] MEDS: DIGOXIN 0.125 MG TAB PO SCH (16:56)
[2020-03-30] MEDS: POLYETHYLENE GLYCOL 3350 17 GM POWDER PO SCH ×2 (20:43→23:41)
[2020-03-30] MEDS: TAMSULOSIN 0.4 MG CAP PO SCH ×2 (20:43→23:41)
--- NOTE | 2020-03-30 21:37 | Progress Note ---
Assessment and Plan Patient sleeping. Patient Off the mechanical ventilation. Patient is on Trach HME, FIO2 40% and O2 saturation running 97%. Patients Patient tolerating Trach HME. Repeat chest xray 03/29/20 reported Again noted bilateral pulmonary process w ith bilateral pleural effusions. No pneumothorax. Patient afebrile. No leukocytosis. Patient is on Apixaban and prevacid. - Patient Problems (1) Acute respiratory failure Current Visit: Yes Status: Acute Plan to address problem: Patient is on Trach HME, FIO2 40%. Albuterol/atrovent aerosol treatments. Continue apixaban Continue prevacid. (2) COPD exacerbation Current Visit: No Status: Acute Plan to address problem: Patient is on Trach HME, FIO2 40%. Albuterol/atrovent aerosol treatments. Continue apixaban Continue prevacid. (3) Bilateral pneumonia Current Visit: Yes Status: Acute Plan to address problem: Chest xray 03/10/20 reported CHF Patient afebrile. No leukocytosis. Repeat chest xray 03/29/20 reported Again noted bilateral pulmonary process with bilateral pleural effusions. No pneumothorax (4) CHF exacerbation Current Visit: Yes Status: Acute Plan to address problem: Management as per cardiology. (5) Cardiomyopathy Current Visit: Yes Status: Acute Plan to address problem: Management as per cardiology. (6) Pancreatic lesion Current Visit: Yes Status: Acute Plan to address problem: Management as per primary care. (7) Paroxysmal atrial fibrillation Current Visit: Yes Status: Acute Plan to address problem: Patient is on apixaban. Management as per cardiology. (8) CVA (cerebral vascular accident) Current Visit: No Status: Acute Qualifiers: Precerebral and cerebral artery: middle cerebral artery Laterality of affected vessel: right Plan to address problem: Management as per primary care. (9) Cocaine dependence Current Visit: No Status: Acute Plan to address problem: Management as per primary care. (10) HTN (hypertension) Current Visit: No Status: Acute Qualifiers: Hypertension type: essential hypertension Qualified Code(s): I10 - Essential (primary) hypertension Plan to address problem: Management as per primary care. (11) Nicotine dependence Current Visit: No Status: Acute Qualifiers: Nicotine product type: cigarettes Substance use status: in withdrawal Qualified Code(s): F17.213 - Nicotine dependence, cigarettes, with withdrawal Plan to address problem: Counseled to stop smoking. (12) Obesity hypoventilation syndrome Current Visit: No Status: Acute Plan to address problem: Patient S/P tracheostomy and on mechanical ventilation. Subjective Date of service: 03/30/20 Principal diagnosis: Ac hypoxemic resp failure; Pneumonia; PUI COVID-19; CHF; COPD; HTN Interval history: Patient sleeping. Patient Off the mechanical ventilation. Patient is on Trach HME, FIO2 40% and O2 saturation running 97%. Patients Patient tolerating Trach HME. Repeat chest xray 03/29/20 reported Again noted bilateral pulmonary process with bilateral pleural effusions. No pneumothorax. Patient afebrile. No leukocytosis. Patient is on Apixaban and prevacid. Objective Vital Signs - 12hr 03/30/20 03/30/20 03/30/20 10:00 10:16 10:30 Temperature Pulse Rate 126 H 129 H 131 H Respiratory 20 22 Rate Blood Pressure 105/72 91/72 83/68 O2 Sat by Pulse 92 94 Oximetry O2 Sat by Pulse Oximetry [ Assessment] 03/30/20 03/30/20 03/30/20 11:01 11:31 12:00 Temperature 97.6 F Pulse Rate 112 H 104 H Respiratory 20 22 Rate Blood Pressure 94/73 86/58 O2 Sat by Pulse 93 94 Oximetry O2 Sat by Pulse Oximetry [ Assessment] 03/30/20 03/30/20 03/30/20 12:01 12:23 12:31 Temperature Pulse Rate 120 H 122 H Respiratory 27 H 23 Rate Blood Pressure 106/72 105/60 O2 Sat by Pulse 98 90 96 Oximetry O2 Sat by Pulse Oximetry [ Assessment] 03/30/20 03/30/20 03/30/20 13:00 13:31 14:00 Temperature Pulse Rate 128 H 121 H 127 H Respiratory 19 17 19 Rate Blood Pressure 93/69 87/65 97/72 O2 Sat by Pulse 97 92 Oximetry O2 Sat by Pulse Oximetry [ Assessment] 03/30/20 03/30/20 03/30/20 14:30 15:01 15:30 Temperature Pulse Rate 126 H 113 H Respiratory 24 20 Rate Blood Pressure 100/68 87/64 O2 Sat by Pulse 95 98 Oximetry O2 Sat by Pulse 97 Oximetry [ Assessment] 03/30/20 03/30/20 03/30/20 15:31 16:00 16:01 Temperature 97.7 F Pulse Rate 127 H 115 H Respiratory 22 22 Rate Blood Pressure 97/54 106/46 O2 Sat by Pulse 93 100 Oximetry O2 Sat by Pulse Oximetry [ Assessment] 03/30/20 03/30/20 03/30/20 16:17 16:30 16:56 Temperature Pulse Rate 124 H 116 H Respiratory 16 Rate Blood Pressure 96/61 O2 Sat by Pulse 93 97 Oximetry O2 Sat by Pulse Oximetry [ Assessment] 03/30/20 03/30/20 03/30/20 17:01 17:31 18:00 Temperature Pulse Rate 127 H 131 H 113 H Respiratory 18 20 24 Rate Blood Pressure 96/61 92/67 98/73 O2 Sat by Pulse 98 95 95 Oximetry O2 Sat by Pulse Oximetry [ Assessment] 03/30/20 03/30/20 03/30/20 18:31 20:00 20:30 Temperature 98.3 F Pulse Rate 121 H Respiratory 20 Rate Blood Pressure 88/66 O2 Sat by Pulse 97 97 Oximetry O2 Sat by Pulse Oximetry [ Assessment] 03/30/20 20:41 Temperature Pulse Rate Respiratory 22 Rate Blood Pressure O2 Sat by Pulse Oximetry O2 Sat by Pulse Oximetry [ Assessment] Constitutional: no acute distress, asleep, other (elderly and obese male, normocephalic with mildly increased respiratory effort at rest) Eyes: non-icteric ENT: oropharynx moist, other (+ midline tracheostomy) Neck: supple, no JVD Effort: mildly labored Ascultation: Bilateral: diminished breath sounds, rhonchi (scant), other (tracheal secretions ) Percussion: Bilateral: not dull Cardiovascular: irregular rhythm Gastrointestinal: normoactive bowel sounds, soft, non-tender, non-distended (protuberant), other (protuberant; PEG in place) Integumentary: normal Extremities: no cyanosis, pulses normal, no ischemia or petechiae, edema (2+) Neurologic: non-focal exam (grossly; moves extremities), pupils equal and round, unable to assess Psychiatric: mood appropriate, affect normal CBC and BMP: 03/22/20 06:39 03/26/20 04:20 ABG, PT/INR, D-dimer: ABG ABG pH 7.565 (7.320-7.450) H 03/29/20 21:00 POC ABG pCO2 32.4 mmHg (32.0-48.0) 03/29/20 21:00 ABG pCO2 47.8 mm Hg 02/20/20 06:45 POC ABG pO2 66.8 mmHg (83-108) L 03/29/20 21:00 ABG pO2 88.7 mm Hg (80.0-90.0) 02/20/20 06:45 POC ABG HCO3 28.7 03/29/20 21:00 ABG O2 Saturation 97.2 % (95.0-99.0) 02/20/20 06:45 PT/INR, D-dimer PT 27.0 Sec. (12.2-14.9) H 02/07/20 15:03 INR 2.46 (0.87-1.13) H 02/07/20 15:03 Abnormal lab findings: Abnormal Labs 11/24/19 11/24/19 11/24/19 02:53 02:53 03:45 WBC 14.3 H RBC Hgb Hct MCHC RDW 17.2 H MCV MCH Lymph % (Auto) [place] % (Auto) [place] # Eos # Lymph # (Auto) [place] # (Auto) Eos # (Auto) Seg Neutrophils % Seg Neuts % (Manual) Baso # (Auto) Lymphocytes % (Manual) Monocytes % (Manual) Eosinophils % (Manual) Basophils % (Manual) Seg Neutrophils # Seg Neutrophils # Man 8.3 H Lymphocytes # (Manual) Monocytes # (Manual) 0.9 H Eosinophils # (Manual) Nucleated RBC % Basophils # (Manual) PT INR APTT Heparin Anti-Xa Level ABG pH 7.313 L POC ABG pO2 ABG pO2 102.8 H ABG HCO3 ABG O2 Saturation ABG Base Excess -2.9 L POC ABG pCO2 ABG Hemoglobin ABG Oxyhemoglobin ABG Sodium ABG Chloride ABG Glucose Oxyhemoglobin 93.9 L Carboxyhemoglobin Sodium Potassium Chloride Carbon Dioxide BUN Creatinine Glucose 195 H POC Glucose Lactic Acid Calcium Phosphorus Magnesium AST ALT Lactate Dehydrogenase Total Bilirubin Direct Bilirubin CK-MB (CK-2) 4.3 H C-Reactive Protein NT-Pro-B Natriuret Pep 1181 H Total Protein Albumin Arterial Blood Glucose Arterial Blood Ionized Calcium Urine WBC (Auto) Urine Creatinine Digoxin 11/24/19 11/24/19 11/24/19 04:53 04:53 10:37 WBC RBC Hgb Hct MCHC RDW MCV MCH Lymph % (Auto) [place] % (Auto) [place] # Eos # Lymph # (Auto) [place] # (Auto) Eos # (Auto) Seg Neutrophils % Seg Neuts % (Manual) Baso # (Auto) Lymphocytes % (Manual) Monocytes % (Manual) Eosinophils % (Manual) Basophils % (Manual) Seg Neutrophils # Seg Neutrophils # Man Lymphocytes # (Manual) Monocytes # (Manual) Eosinophils # (Manual) Nucleated RBC % Basophils # (Manual) PT INR APTT Heparin Anti-Xa Level ABG pH POC ABG pO2 ABG pO2 ABG HCO3 ABG O2 Saturation ABG Base Excess POC ABG pCO2 ABG Hemoglobin ABG Oxyhemoglobin ABG Sodium ABG Chloride ABG Glucose Oxyhemoglobin Carboxyhemoglobin Sodium Potassium Chloride Carbon Dioxide BUN Creatinine Glucose 162 H POC Glucose Lactic Acid 2.40 H* 2.50 H* Calcium Phosphorus Magnesium AST ALT Lactate Dehydrogenase 240 H Total Bilirubin Direct Bilirubin CK-MB (CK-2) C-Reactive Protein NT-Pro-B Natriuret Pep Total Protein Albumin Arterial Blood Glucose Arterial Blood Ionized Calcium Urine WBC (Auto) Urine Creatinine Digoxin 11/24/19 11/24/19 11/24/19 12:21 14:50 19:54 WBC RBC Hgb Hct MCHC RDW MCV MCH Lymph % (Auto) [place] % (Auto) [place] # Eos # Lymph # (Auto) [place] # (Auto) Eos # (Auto) Seg Neutrophils % Seg Neuts % (Manual) Baso # (Auto) Lymphocytes % (Manual) Monocytes % (Manual) Eosinophils % (Manual) Basophils % (Manual) Seg Neutrophils # Seg Neutrophils # Man Lymphocytes # (Manual) Monocytes # (Manual) Eosinophils # (Manual) Nucleated RBC % Basophils # (Manual) PT INR APTT Heparin Anti-Xa Level ABG pH POC ABG pO2 ABG pO2 ABG HCO3 ABG O2 Saturation ABG Base Excess POC ABG pCO2 ABG Hemoglobin ABG Oxyhemoglobin ABG Sodium ABG Chloride ABG Glucose Oxyhemoglobin Carboxyhemoglobin Sodium Potassium Chloride Carbon Dioxide BUN Creatinine Glucose POC Glucose 145 H 143 H 124 H Lactic Acid Calcium Phosphorus Magnesium AST ALT Lactate Dehydrogenase Total Bilirubin Direct Bilirubin CK-MB (CK-2) C-Reactive Protein NT-Pro-B Natriuret Pep Total Protein Albumin Arterial Blood Glucose Arterial Blood Ionized Calcium Urine WBC (Auto) Urine Creatinine Digoxin 11/25/19 11/25/19 11/25/19 00:18 03:18 05:11 WBC 13.7 H RBC Hgb Hct MCHC RDW 17.1 H MCV MCH Lymph % (Auto) 10.8 L [place] % (Auto) 8.7 H [place] # 1.2 H Eos # Lymph # (Auto) [place] # (Auto) Eos # (Auto) Seg Neutrophils % 80.2 H Seg Neuts % (Manual) Baso # (Auto) Lymphocytes % (Manual) Monocytes % (Manual) Eosinophils % (Manual) Basophils % (Manual) Seg Neutrophils # 11.0 H Seg Neutrophils # Man Lymphocytes # (Manual) Monocytes # (Manual) Eosinophils # (Manual) Nucleated RBC % Basophils # (Manual) PT INR APTT Heparin Anti-Xa Level ABG pH 7.333 L POC ABG pO2 ABG pO2 61.2 L ABG HCO3 ABG O2 Saturation 90.2 L ABG Base Excess POC ABG pCO2 ABG Hemoglobin 13.7 L ABG Oxyhemoglobin ABG Sodium ABG Chloride ABG Glucose Oxyhemoglobin 88.2 L Carboxyhemoglobin Sodium Potassium Chloride Carbon Dioxide BUN Creatinine Glucose POC Glucose 109 H Lactic Acid Calcium Phosphorus Magnesium AST ALT Lactate Dehydrogenase Total Bilirubin Direct Bilirubin CK-MB (CK-2) C-Reactive Protein NT-Pro-B Natriuret Pep Total Protein Albumin Arterial Blood Glucose Arterial Blood Ionized Calcium Urine WBC (Auto) Urine Creatinine Digoxin 11/25/19 11/25/19 11/26/19 05:11 11:40 03:12 WBC RBC Hgb Hct MCHC RDW MCV MCH Lymph % (Auto) [place] % (Auto) [place] # Eos # Lymph # (Auto) [place] # (Auto) Eos # (Auto) Seg Neutrophils % Seg Neuts % (Manual) Baso # (Auto) Lymphocytes % (Manual) Monocytes % (Manual) Eosinophils % (Manual) Basophils % (Manual) Seg Neutrophils # Seg Neutrophils # Man Lymphocytes # (Manual) Monocytes # (Manual) Eosinophils # (Manual) Nucleated RBC % Basophils # (Manual) PT INR APTT Heparin Anti-Xa Level ABG pH POC ABG pO2 ABG pO2 155.1 H ABG HCO3 27.8 H ABG O2 Saturation ABG Base Excess POC ABG pCO2 ABG Hemoglobin 12.2 L ABG Oxyhemoglobin ABG Sodium ABG Chloride ABG Glucose Oxyhemoglobin Carboxyhemoglobin Sodium Potassium Chloride Carbon Dioxide BUN 23 H Creatinine Glucose 110 H POC Glucose 108 H Lactic Acid Calcium Phosphorus Magnesium AST ALT Lactate Dehydrogenase Total Bilirubin Direct Bilirubin CK-MB (CK-2) C-Reactive Protein NT-Pro-B Natriuret Pep Total Protein Albumin Arterial Blood Glucose Arterial Blood Ionized Calcium Urine WBC (Auto) Urine Creatinine Digoxin 11/26/19 11/26/19 11/26/19 06:17 10:43 10:43 WBC 11.4 H RBC Hgb Hct MCHC RDW 17.1 H MCV MCH Lymph % (Auto) [place] % (Auto) [place] # Eos # Lymph # (Auto) [place] # (Auto) Eos # (Auto) Seg Neutrophils % Seg Neuts % (Manual) Baso # (Auto) Lymphocytes % (Manual) Monocytes % (Manual) Eosinophils % (Manual) Basophils % (Manual) Seg Neutrophils # Seg Neutrophils # Man Lymphocytes # (Manual) Monocytes # (Manual) Eosinophils # (Manual) Nucleated RBC % Basophils # (Manual) PT INR APTT Heparin Anti-Xa Level ABG pH POC ABG pO2 ABG pO2 ABG HCO3 ABG O2 Saturation ABG Base Excess POC ABG pCO2 ABG Hemoglobin ABG Oxyhemoglobin ABG Sodium ABG Chloride ABG Glucose Oxyhemoglobin Carboxyhemoglobin Sodium Potassium Chloride Carbon Dioxide BUN 29 H Creatinine Glucose POC Glucose 107 H Lactic Acid Calcium Phosphorus Magnesium AST ALT Lactate Dehydrogenase Total Bilirubin Direct Bilirubin CK-MB (CK-2) C-Reactive Protein NT-Pro-B Natriuret Pep Total Protein Albumin Arterial Blood Glucose Arterial Blood Ionized Calcium Urine WBC (Auto) Urine Creatinine Digoxin 11/26/19 11/27/19 11/27/19 17:11 01:53 04:11 WBC RBC Hgb Hct MCHC RDW MCV MCH Lymph % (Auto) [place] % (Auto) [place] # Eos # Lymph # (Auto) [place] # (Auto) Eos # (Auto) Seg Neutrophils % Seg Neuts % (Manual) Baso # (Auto) Lymphocytes % (Manual) Monocytes % (Manual) Eosinophils % (Manual) Basophils % (Manual) Seg Neutrophils # Seg Neutrophils # Man Lymphocytes # (Manual) Monocytes # (Manual) Eosinophils # (Manual) Nucleated RBC % Basophils # (Manual) PT INR APTT Heparin Anti-Xa Level ABG pH POC ABG pO2 ABG pO2 ABG HCO3 29.2 H ABG O2 Saturation ABG Base Excess 3.4 H POC ABG pCO2 ABG Hemoglobin 13.3 L ABG Oxyhemoglobin ABG Sodium ABG Chloride ABG Glucose Oxyhemoglobin 94.5 L Carboxyhemoglobin Sodium Potassium Chloride Carbon Dioxide BUN Creatinine Glucose POC Glucose 113 H 108 H Lactic Acid Calcium Phosphorus Magnesium AST ALT Lactate Dehydrogenase Total Bilirubin Direct Bilirubin CK-MB (CK-2) C-Reactive Protein NT-Pro-B Natriuret Pep Total Protein Albumin Arterial Blood Glucose Arterial Blood Ionized Calcium Urine WBC (Auto) Urine Creatinine Digoxin 11/27/19 11/28/19 11/28/19 05:27 05:00 05:25 WBC RBC Hgb Hct MCHC RDW MCV MCH Lymph % (Auto) [place] % (Auto) [place] # Eos # Lymph # (Auto) [place] # (Auto) Eos # (Auto) Seg Neutrophils % Seg Neuts % (Manual) Baso # (Auto) Lymphocytes % (Manual) Monocytes % (Manual) Eosinophils % (Manual) Basophils % (Manual) Seg Neutrophils # Seg Neutrophils # Man Lymphocytes # (Manual) Monocytes # (Manual) Eosinophils # (Manual) Nucleated RBC % Basophils # (Manual) PT INR APTT Heparin Anti-Xa Level ABG pH POC ABG pO2 68.1 L ABG pO2 ABG HCO3 ABG O2 Saturation ABG Base Excess POC ABG pCO2 ABG Hemoglobin ABG Oxyhemoglobin 91.2 L ABG Sodium ABG Chloride ABG Glucose Oxyhemoglobin Carboxyhemoglobin Sodium Potassium Chloride Carbon Dioxide BUN Creatinine Glucose POC Glucose 111 H 110 H Lactic Acid Calcium Phosphorus Magnesium AST ALT Lactate Dehydrogenase Total Bilirubin Direct Bilirubin CK-MB (CK-2) C-Reactive Protein NT-Pro-B Natriuret Pep Total Protein Albumin Arterial Blood Glucose Arterial Blood Ionized Calcium Urine WBC (Auto) Urine Creatinine Digoxin 11/28/19 11/28/19 11/28/19 12:08 13:47 13:47 WBC 11.3 H RBC Hgb Hct MCHC RDW 16.1 H MCV MCH Lymph % (Auto) [place] % (Auto) 9.9 H [place] # 1.1 H Eos # Lymph # (Auto) [place] # (Auto) Eos # (Auto) Seg Neutrophils % 71.4 H Seg Neuts % (Manual) Baso # (Auto) Lymphocytes % (Manual) Monocytes % (Manual) Eosinophils % (Manual) Basophils % (Manual) Seg Neutrophils # 8.1 H Seg Neutrophils # Man Lymphocytes # (Manual) Monocytes # (Manual) Eosinophils # (Manual) Nucleated RBC % Basophils # (Manual) PT INR APTT Heparin Anti-Xa Level ABG pH POC ABG pO2 ABG pO2 ABG HCO3 ABG O2 Saturation ABG Base Excess POC ABG pCO2 ABG Hemoglobin ABG Oxyhemoglobin ABG Sodium ABG Chloride ABG Glucose Oxyhemoglobin Carboxyhemoglobin Sodium Potassium Chloride Carbon Dioxide BUN 23 H Creatinine Glucose 123 H POC Glucose 112 H Lactic Acid Calcium Phosphorus Magnesium AST ALT Lactate Dehydrogenase Total Bilirubin Direct Bilirubin CK-MB (CK-2) C-Reactive Protein NT-Pro-B Natriuret Pep Total Protein Albumin 3.7 L Arterial Blood Glucose Arterial Blood Ionized Calcium Urine WBC (Auto) Urine Creatinine Digoxin 11/28/19 11/29/19 11/29/19 17:26 03:55 17:04 WBC RBC Hgb Hct MCHC RDW MCV MCH Lymph % (Auto) [place] % (Auto) [place] # Eos # Lymph # (Auto) [place] # (Auto) Eos # (Auto) Seg Neutrophils % Seg Neuts % (Manual) Baso # (Auto) Lymphocytes % (Manual) Monocytes % (Manual) Eosinophils % (Manual) Basophils % (Manual) Seg Neutrophils # Seg Neutrophils # Man Lymphocytes # (Manual) Monocytes # (Manual) Eosinophils # (Manual) Nucleated RBC % Basophils # (Manual) PT INR APTT Heparin Anti-Xa Level ABG pH POC ABG pO2 ABG pO2 65.7 L ABG HCO3 28.3 H ABG O2 Saturation 93.9 L ABG Base Excess 3.6 H POC ABG pCO2 ABG Hemoglobin 13.3 L ABG Oxyhemoglobin ABG Sodium ABG Chloride ABG Glucose Oxyhemoglobin 91.5 L Carboxyhemoglobin Sodium Potassium Chloride Carbon Dioxide BUN Creatinine Glucose POC Glucose 123 H 119 H Lactic Acid Calcium Phosphorus Magnesium AST ALT Lactate Dehydrogenase Total Bilirubin Direct Bilirubin CK-MB (CK-2) C-Reactive Protein NT-Pro-B Natriuret Pep Total Protein Albumin Arterial Blood Glucose Arterial Blood Ionized Calcium Urine WBC (Auto) Urine Creatinine Digoxin 11/30/19 11/30/19 11/30/19 04:17 04:17 04:56 WBC 13.4 H RBC Hgb Hct MCHC RDW 15.6 H MCV MCH Lymph % (Auto) [place] % (Auto) [place] # Eos # Lymph # (Auto) [place] # (Auto) Eos # (Auto) Seg Neutrophils % Seg Neuts % (Manual) Baso # (Auto) Lymphocytes % (Manual) Monocytes % (Manual) Eosinophils % (Manual) Basophils % (Manual) Seg Neutrophils # Seg Neutrophils # Man Lymphocytes # (Manual) Monocytes # (Manual) Eosinophils # (Manual) Nucleated RBC % Basophils # (Manual) PT INR APTT Heparin Anti-Xa Level ABG pH POC ABG pO2 ABG pO2 56.3 L ABG HCO3 29.3 H ABG O2 Saturation 91.5 L ABG Base Excess 4.7 H POC ABG pCO2 ABG Hemoglobin 12.1 L ABG Oxyhemoglobin ABG Sodium ABG Chloride ABG Glucose Oxyhemoglobin 89.2 L Carboxyhemoglobin Sodium 147 H Potassium Chloride Carbon Dioxide BUN 30 H Creatinine Glucose 124 H POC Glucose Lactic Acid Calcium Phosphorus Magnesium AST ALT Lactate Dehydrogenase Total Bilirubin Direct Bilirubin CK-MB (CK-2) C-Reactive Protein NT-Pro-B Natriuret Pep Total Protein Albumin 3.8 L Arterial Blood Glucose Arterial Blood Ionized Calcium Urine WBC (Auto) Urine Creatinine Digoxin 11/30/19 11/30/19 11/30/19 05:51 11:54 18:17 WBC RBC Hgb Hct MCHC RDW MCV MCH Lymph % (Auto) [place] % (Auto) [place] # Eos # Lymph # (Auto) [place] # (Auto) Eos # (Auto) Seg Neutrophils % Seg Neuts % (Manual) Baso # (Auto) Lymphocytes % (Manual) Monocytes % (Manual) Eosinophils % (Manual) Basophils % (Manual) Seg Neutrophils # Seg Neutrophils # Man Lymphocytes # (Manual) Monocytes # (Manual) Eosinophils # (Manual) Nucleated RBC % Basophils # (Manual) PT INR APTT Heparin Anti-Xa Level ABG pH POC ABG pO2 ABG pO2 ABG HCO3 ABG O2 Saturation ABG Base Excess POC ABG pCO2 ABG Hemoglobin ABG Oxyhemoglobin ABG Sodium ABG Chloride ABG Glucose Oxyhemoglobin Carboxyhemoglobin Sodium Potassium Chloride Carbon Dioxide BUN Creatinine Glucose POC Glucose 127 H 115 H 143 H Lactic Acid Calcium Phosphorus Magnesium AST ALT Lactate Dehydrogenase Total Bilirubin Direct Bilirubin CK-MB (CK-2) C-Reactive Protein NT-Pro-B Natriuret Pep Total Protein Albumin Arterial Blood Glucose Arterial Blood Ionized Calcium Urine WBC (Auto) Urine Creatinine Digoxin 12/01/19 12/01/19 12/01/19 01:18 05:22 12:16 WBC RBC Hgb Hct MCHC RDW MCV MCH Lymph % (Auto) [place] % (Auto) [place] # Eos # Lymph # (Auto) [place] # (Auto) Eos # (Auto) Seg Neutrophils % Seg Neuts % (Manual) Baso # (Auto) Lymphocytes % (Manual) Monocytes % (Manual) Eosinophils % (Manual) Basophils % (Manual) Seg Neutrophils # Seg Neutrophils # Man Lymphocytes # (Manual) Monocytes # (Manual) Eosinophils # (Manual) Nucleated RBC % Basophils # (Manual) PT INR APTT Heparin Anti-Xa Level ABG pH POC ABG pO2 ABG pO2 ABG HCO3 ABG O2 Saturation ABG Base Excess POC ABG pCO2 ABG Hemoglobin ABG Oxyhemoglobin ABG Sodium ABG Chloride ABG Glucose Oxyhemoglobin Carboxyhemoglobin Sodium Potassium 3.5 L Chloride 107.8 H Carbon Dioxide BUN 37 H Creatinine Glucose 157 H POC Glucose 118 H 148 H Lactic Acid Calcium 8.2 L D Phosphorus Magnesium AST 48 H ALT 60 H Lactate Dehydrogenase 194 H Total Bilirubin Direct Bilirubin CK-MB (CK-2) C-Reactive Protein 8.50 H NT-Pro-B Natriuret Pep Total Protein 5.5 L Albumin 2.8 L Arterial Blood Glucose Arterial Blood Ionized Calcium Urine WBC (Auto) Urine Creatinine Digoxin 12/01/19 12/02/19 12/02/19 18:04 00:05 05:16 WBC 11.4 H RBC Hgb Hct MCHC RDW 15.9 H MCV MCH Lymph % (Auto) [place] % (Auto) 9.9 H [place] # 1.1 H Eos # Lymph # (Auto) [place] # (Auto) Eos # (Auto) Seg Neutrophils % 70.3 H Seg Neuts % (Manual) Baso # (Auto) Lymphocytes % (Manual) Monocytes % (Manual) Eosinophils % (Manual) Basophils % (Manual) Seg Neutrophils # 8.0 H Seg Neutrophils # Man Lymphocytes # (Manual) Monocytes # (Manual) Eosinophils # (Manual) Nucleated RBC % Basophils # (Manual) PT INR APTT Heparin Anti-Xa Level ABG pH POC ABG pO2 ABG pO2 ABG HCO3 ABG O2 Saturation ABG Base Excess POC ABG pCO2 ABG Hemoglobin ABG Oxyhemoglobin ABG Sodium ABG Chloride ABG Glucose Oxyhemoglobin Carboxyhemoglobin Sodium Potassium Chloride Carbon Dioxide BUN Creatinine Glucose POC Glucose 143 H 107 H Lactic Acid Calcium Phosphorus Magnesium AST ALT Lactate Dehydrogenase Total Bilirubin Direct Bilirubin CK-MB (CK-2) C-Reactive Protein NT-Pro-B Natriuret Pep Total Protein Albumin Arterial Blood Glucose Arterial Blood Ionized Calcium Urine WBC (Auto) Urine Creatinine Digoxin 12/02/19 12/02/19 12/02/19 05:16 06:03 11:52 WBC RBC Hgb Hct MCHC RDW MCV MCH Lymph % (Auto) [place] % (Auto) [place] # Eos # Lymph # (Auto) [place] # (Auto) Eos # (Auto) Seg Neutrophils % Seg Neuts % (Manual) Baso # (Auto) Lymphocytes % (Manual) Monocytes % (Manual) Eosinophils % (Manual) Basophils % (Manual) Seg Neutrophils # Seg Neutrophils # Man Lymphocytes # (Manual) Monocytes # (Manual) Eosinophils # (Manual) Nucleated RBC % Basophils # (Manual) PT INR APTT Heparin Anti-Xa Level ABG pH POC ABG pO2 ABG pO2 ABG HCO3 ABG O2 Saturation ABG Base Excess POC ABG pCO2 ABG Hemoglobin ABG Oxyhemoglobin ABG Sodium ABG Chloride ABG Glucose Oxyhemoglobin Carboxyhemoglobin Sodium 146 H Potassium Chloride Carbon Dioxide BUN 28 H Creatinine Glucose 123 H POC Glucose 110 H 152 H Lactic Acid Calcium Phosphorus Magnesium AST ALT Lactate Dehydrogenase Total Bilirubin Direct Bilirubin CK-MB (CK-2) C-Reactive Protein NT-Pro-B Natriuret Pep Total Protein Albumin Arterial Blood Glucose Arterial Blood Ionized Calcium Urine WBC (Auto) Urine Creatinine Digoxin 12/02/19 12/02/19 12/02/19 12:58 17:58 23:36 WBC RBC Hgb Hct MCHC RDW MCV MCH Lymph % (Auto) [place] % (Auto) [place] # Eos # Lymph # (Auto) [place] # (Auto) Eos # (Auto) Seg Neutrophils % Seg Neuts % (Manual) Baso # (Auto) Lymphocytes % (Manual) Monocytes % (Manual) Eosinophils % (Manual) Basophils % (Manual) Seg Neutrophils # Seg Neutrophils # Man Lymphocytes # (Manual) Monocytes # (Manual) Eosinophils # (Manual) Nucleated RBC % Basophils # (Manual) PT INR APTT Heparin Anti-Xa Level ABG pH POC ABG pO2 78.1 L ABG pO2 ABG HCO3 ABG O2 Saturation ABG Base Excess POC ABG pCO2 ABG Hemoglobin ABG Oxyhemoglobin ABG Sodium ABG Chloride ABG Glucose Oxyhemoglobin Carboxyhemoglobin Sodium Potassium Chloride Carbon Dioxide BUN Creatinine Glucose POC Glucose 120 H 123 H Lactic Acid Calcium Phosphorus Magnesium AST ALT Lactate Dehydrogenase Total Bilirubin Direct Bilirubin CK-MB (CK-2) C-Reactive Protein NT-Pro-B Natriuret Pep Total Protein Albumin Arterial Blood Glucose Arterial Blood Ionized Calcium Urine WBC (Auto) Urine Creatinine Digoxin 12/03/19 12/03/19 12/03/19 06:03 06:14 11:46 WBC RBC Hgb Hct MCHC RDW MCV MCH Lymph % (Auto) [place] % (Auto) [place] # Eos # Lymph # (Auto) [place] # (Auto) Eos # (Auto) Seg Neutrophils % Seg Neuts % (Manual) Baso # (Auto) Lymphocytes % (Manual) Monocytes % (Manual) Eosinophils % (Manual) Basophils % (Manual) Seg Neutrophils # Seg Neutrophils # Man Lymphocytes # (Manual) Monocytes # (Manual) Eosinophils # (Manual) Nucleated RBC % Basophils # (Manual) PT INR APTT Heparin Anti-Xa Level ABG pH POC ABG pO2 ABG pO2 ABG HCO3 ABG O2 Saturation ABG Base Excess POC ABG pCO2 ABG Hemoglobin ABG Oxyhemoglobin ABG Sodium ABG Chloride ABG Glucose Oxyhemoglobin Carboxyhemoglobin Sodium Potassium Chloride Carbon Dioxide BUN Creatinine Glucose POC Glucose 142 H 130 H Lactic Acid Calcium Phosphorus Magnesium AST ALT Lactate Dehydrogenase Total Bilirubin Direct Bilirubin CK-MB (CK-2) C-Reactive Protein NT-Pro-B Natriuret Pep Total Protein Albumin Arterial Blood Glucose Arterial Blood Ionized Calcium Urine WBC (Auto) 8.0 H Urine Creatinine Digoxin 12/03/19 12/03/19 12/04/19 15:50 17:39 00:04 WBC RBC Hgb Hct MCHC RDW MCV MCH Lymph % (Auto) [place] % (Auto) [place] # Eos # Lymph # (Auto) [place] # (Auto) Eos # (Auto) Seg Neutrophils % Seg Neuts % (Manual) Baso # (Auto) Lymphocytes % (Manual) Monocytes % (Manual) Eosinophils % (Manual) Basophils % (Manual) Seg Neutrophils # Seg Neutrophils # Man Lymphocytes # (Manual) Monocytes # (Manual) Eosinophils # (Manual) Nucleated RBC % Basophils # (Manual) PT INR APTT Heparin Anti-Xa Level ABG pH POC ABG pO2 ABG pO2 ABG HCO3 ABG O2 Saturation ABG Base Excess POC ABG pCO2 ABG Hemoglobin ABG Oxyhemoglobin ABG Sodium ABG Chloride ABG Glucose Oxyhemoglobin Carboxyhemoglobin Sodium Potassium Chloride Carbon Dioxide BUN Creatinine Glucose POC Glucose 146 H 133 H Lactic Acid Calcium Phosphorus 2.40 L Magnesium AST ALT Lactate Dehydrogenase Total Bilirubin Direct Bilirubin CK-MB (CK-2) C-Reactive Protein NT-Pro-B Natriuret Pep Total Protein Albumin Arterial Blood Glucose Arterial Blood Ionized Calcium Urine WBC (Auto) Urine Creatinine Digoxin 12/04/19 12/04/19 12/04/19 03:58 03:58 05:22 WBC 12.5 H RBC Hgb 11.2 L Hct 35.2 L MCHC RDW 16.0 H MCV MCH Lymph % (Auto) [place] % (Auto) 9.6 H [place] # 1.2 H Eos # 0.5 H Lymph # (Auto) [place] # (Auto) Eos # (Auto) Seg Neutrophils % Seg Neuts % (Manual) Baso # (Auto) Lymphocytes % (Manual) Monocytes % (Manual) Eosinophils % (Manual) Basophils % (Manual) Seg Neutrophils # 8.6 H Seg Neutrophils # Man Lymphocytes # (Manual) Monocytes # (Manual) Eosinophils # (Manual) Nucleated RBC % Basophils # (Manual) PT INR APTT Heparin Anti-Xa Level ABG pH POC ABG pO2 ABG pO2 ABG HCO3 ABG O2 Saturation ABG Base Excess POC ABG pCO2 ABG Hemoglobin ABG Oxyhemoglobin ABG Sodium ABG Chloride ABG Glucose Oxyhemoglobin Carboxyhemoglobin Sodium 146 H Potassium Chloride 108.6 H Carbon Dioxide BUN 30 H Creatinine 0.7 L Glucose 121 H POC Glucose 132 H Lactic Acid Calcium Phosphorus Magnesium AST ALT Lactate Dehydrogenase Total Bilirubin Direct Bilirubin CK-MB (CK-2) C-Reactive Protein NT-Pro-B Natriuret Pep Total Protein Albumin Arterial Blood Glucose Arterial Blood Ionized Calcium Urine WBC (Auto) Urine Creatinine Digoxin 12/04/19 12/04/19 12/05/19 13:26 18:43 00:19 WBC RBC Hgb Hct MCHC RDW MCV MCH Lymph % (Auto) [place] % (Auto) [place] # Eos # Lymph # (Auto) [place] # (Auto) Eos # (Auto) Seg Neutrophils % Seg Neuts % (Manual) Baso # (Auto) Lymphocytes % (Manual) Monocytes % (Manual) Eosinophils % (Manual) Basophils % (Manual) Seg Neutrophils # Seg Neutrophils # Man Lymphocytes # (Manual) Monocytes # (Manual) Eosinophils # (Manual) Nucleated RBC % Basophils # (Manual) PT INR APTT Heparin Anti-Xa Level ABG pH POC ABG pO2 ABG pO2 ABG HCO3 ABG O2 Saturation ABG Base Excess POC ABG pCO2 ABG Hemoglobin ABG Oxyhemoglobin ABG Sodium ABG Chloride ABG Glucose Oxyhemoglobin Carboxyhemoglobin Sodium Potassium Chloride Carbon Dioxide BUN Creatinine Glucose POC Glucose 185 H 156 H 150 H Lactic Acid Calcium Phosphorus Magnesium AST ALT Lactate Dehydrogenase Total Bilirubin Direct Bilirubin CK-MB (CK-2) C-Reactive Protein NT-Pro-B Natriuret Pep Total Protein Albumin Arterial Blood Glucose Arterial Blood Ionized Calcium Urine WBC (Auto) Urine Creatinine Digoxin 12/05/19 12/05/19 12/05/19 03:37 03:37 05:14 WBC 16.3 H RBC Hgb 11.4 L Hct MCHC RDW 15.6 H MCV MCH Lymph % (Auto) 9.9 L [place] % (Auto) 9.7 H [place] # 1.6 H Eos # Lymph # (Auto) [place] # (Auto) Eos # (Auto) Seg Neutrophils % 78.0 H Seg Neuts % (Manual) Baso # (Auto) Lymphocytes % (Manual) Monocytes % (Manual) Eosinophils % (Manual) Basophils % (Manual) Seg Neutrophils # 12.7 H Seg Neutrophils # Man Lymphocytes # (Manual) Monocytes # (Manual) Eosinophils # (Manual) Nucleated RBC % Basophils # (Manual) PT INR APTT Heparin Anti-Xa Level ABG pH POC ABG pO2 ABG pO2 ABG HCO3 ABG O2 Saturation ABG Base Excess POC ABG pCO2 ABG Hemoglobin ABG Oxyhemoglobin ABG Sodium ABG Chloride ABG Glucose Oxyhemoglobin Carboxyhemoglobin Sodium 146 H Potassium Chloride 107.2 H Carbon Dioxide BUN 27 H Creatinine 0.7 L Glucose 171 H POC Glucose 168 H Lactic Acid Calcium Phosphorus Magnesium AST ALT Lactate Dehydrogenase Total Bilirubin Direct Bilirubin CK-MB (CK-2) C-Reactive Protein NT-Pro-B Natriuret Pep Total Protein Albumin Arterial Blood Glucose Arterial Blood Ionized Calcium Urine WBC (Auto) Urine Creatinine Digoxin 12/05/19 12/05/19 12/05/19 12:31 18:10 23:58 WBC RBC Hgb Hct MCHC RDW MCV MCH Lymph % (Auto) [place] % (Auto) [place] # Eos # Lymph # (Auto) [place] # (Auto) Eos # (Auto) Seg Neutrophils % Seg Neuts % (Manual) Baso # (Auto) Lymphocytes % (Manual) Monocytes % (Manual) Eosinophils % (Manual) Basophils % (Manual) Seg Neutrophils # Seg Neutrophils # Man Lymphocytes # (Manual) Monocytes # (Manual) Eosinophils # (Manual) Nucleated RBC % Basophils # (Manual) PT INR APTT Heparin Anti-Xa Level ABG pH POC ABG pO2 ABG pO2 ABG HCO3 ABG O2 Saturation ABG Base Excess POC ABG pCO2 ABG Hemoglobin ABG Oxyhemoglobin ABG Sodium ABG Chloride ABG Glucose Oxyhemoglobin Carboxyhemoglobin Sodium Potassium Chloride Carbon Dioxide BUN Creatinine Glucose POC Glucose 159 H 198 H 115 H Lactic Acid Calcium Phosphorus Magnesium AST ALT Lactate Dehydrogenase Total Bilirubin Direct Bilirubin CK-MB (CK-2) C-Reactive Protein NT-Pro-B Natriuret Pep Total Protein Albumin Arterial Blood Glucose Arterial Blood Ionized Calcium Urine WBC (Auto) Urine Creatinine Digoxin 12/06/19 12/06/19 12/06/19 05:24 05:24 05:25 WBC 14.9 H RBC Hgb 10.8 L Hct 34.0 L MCHC RDW 15.6 H MCV MCH Lymph % (Auto) 10.7 L [place] % (Auto) 8.3 H [place] # 1.2 H Eos # Lymph # (Auto) [place] # (Auto) Eos # (Auto) Seg Neutrophils % 78.7 H Seg Neuts % (Manual) Baso # (Auto) Lymphocytes % (Manual) Monocytes % (Manual) Eosinophils % (Manual) Basophils % (Manual) Seg Neutrophils # 11.7 H Seg Neutrophils # Man Lymphocytes # (Manual) Monocytes # (Manual) Eosinophils # (Manual) Nucleated RBC % Basophils # (Manual) PT INR APTT Heparin Anti-Xa Level ABG pH POC ABG pO2 ABG pO2 ABG HCO3 ABG O2 Saturation ABG Base Excess POC ABG pCO2 ABG Hemoglobin ABG Oxyhemoglobin ABG Sodium ABG Chloride ABG Glucose Oxyhemoglobin Carboxyhemoglobin Sodium 148 H Potassium 5.1 H Chloride 107.6 H Carbon Dioxide BUN 27 H Creatinine 0.7 L Glucose 155 H POC Glucose 157 H Lactic Acid Calcium Phosphorus Magnesium AST ALT Lactate Dehydrogenase Total Bilirubin Direct Bilirubin CK-MB (CK-2) C-Reactive Protein NT-Pro-B Natriuret Pep Total Protein Albumin Arterial Blood Glucose Arterial Blood Ionized Calcium Urine WBC (Auto) Urine Creatinine Digoxin 12/07/19 12/07/19 12/07/19 00:13 05:34 11:33 WBC RBC Hgb Hct MCHC RDW MCV MCH Lymph % (Auto) [place] % (Auto) [place] # Eos # Lymph # (Auto) [place] # (Auto) Eos # (Auto) Seg Neutrophils % Seg Neuts % (Manual) Baso # (Auto) Lymphocytes % (Manual) Monocytes % (Manual) Eosinophils % (Manual) Basophils % (Manual) Seg Neutrophils # Seg Neutrophils # Man Lymphocytes # (Manual) Monocytes # (Manual) Eosinophils # (Manual) Nucleated RBC % Basophils # (Manual) PT INR APTT Heparin Anti-Xa Level ABG pH POC ABG pO2 ABG pO2 ABG HCO3 ABG O2 Saturation ABG Base Excess POC ABG pCO2 ABG Hemoglobin ABG Oxyhemoglobin ABG Sodium ABG Chloride ABG Glucose Oxyhemoglobin Carboxyhemoglobin Sodium Potassium Chloride Carbon Dioxide BUN Creatinine Glucose POC Glucose 142 H 111 H 169 H Lactic Acid Calcium Phosphorus Magnesium AST ALT Lactate Dehydrogenase Total Bilirubin Direct Bilirubin CK-MB (CK-2) C-Reactive Protein NT-Pro-B Natriuret Pep Total Protein Albumin Arterial Blood Glucose Arterial Blood Ionized Calcium Urine WBC (Auto) Urine Creatinine Digoxin 12/07/19 12/07/19 12/07/19 12:41 13:25 18:19 WBC 12.4 H RBC 3.53 L Hgb 10.2 L Hct 32.1 L MCHC RDW 15.3 H MCV MCH Lymph % (Auto) 10.6 L [place] % (Auto) 7.8 H [place] # 1.0 H Eos # Lymph # (Auto) [place] # (Auto) Eos # (Auto) Seg Neutrophils % 77.6 H Seg Neuts % (Manual) Baso # (Auto) Lymphocytes % (Manual) Monocytes % (Manual) Eosinophils % (Manual) Basophils % (Manual) Seg Neutrophils # 9.6 H Seg Neutrophils # Man Lymphocytes # (Manual) Monocytes # (Manual) Eosinophils # (Manual) Nucleated RBC % Basophils # (Manual) PT INR APTT Heparin Anti-Xa Level ABG pH POC ABG pO2 ABG pO2 ABG HCO3 ABG O2 Saturation ABG Base Excess POC ABG pCO2 ABG Hemoglobin ABG Oxyhemoglobin ABG Sodium ABG Chloride ABG Glucose Oxyhemoglobin Carboxyhemoglobin Sodium 149 H Potassium Chloride 108.4 H Carbon Dioxide BUN 26 H Creatinine 0.6 L Glucose 149 H POC Glucose 164 H Lactic Acid Calcium Phosphorus Magnesium 2.60 H AST 121 H ALT 145 H Lactate Dehydrogenase Total Bilirubin Direct Bilirubin CK-MB (CK-2) C-Reactive Protein NT-Pro-B Natriuret Pep Total Protein Albumin 2.6 L Arterial Blood Glucose Arterial Blood Ionized Calcium Urine WBC (Auto) Urine Creatinine Digoxin 12/07/19 12/08/19 12/08/19 22:25 00:02 03:55 WBC 13.3 H RBC 3.40 L Hgb 9.7 L Hct 30.8 L MCHC 31 L RDW 15.5 H MCV MCH Lymph % (Auto) [place] % (Auto) 8.1 H [place] # 1.1 H Eos # Lymph # (Auto) [place] # (Auto) Eos # (Auto) Seg Neutrophils % 73.0 H Seg Neuts % (Manual) Baso # (Auto) Lymphocytes % (Manual) Monocytes % (Manual) Eosinophils % (Manual) Basophils % (Manual) Seg Neutrophils # 9.7 H Seg Neutrophils # Man Lymphocytes # (Manual) Monocytes # (Manual) Eosinophils # (Manual) Nucleated RBC % Basophils # (Manual) PT INR APTT Heparin Anti-Xa Level 0.12 L ABG pH POC ABG pO2 ABG pO2 ABG HCO3 ABG O2 Saturation ABG Base Excess POC ABG pCO2 ABG Hemoglobin ABG Oxyhemoglobin ABG Sodium ABG Chloride ABG Glucose Oxyhemoglobin Carboxyhemoglobin Sodium Potassium Chloride Carbon Dioxide BUN Creatinine Glucose POC Glucose 151 H Lactic Acid Calcium Phosphorus Magnesium AST ALT Lactate Dehydrogenase Total Bilirubin Direct Bilirubin CK-MB (CK-2) C-Reactive Protein NT-Pro-B Natriuret Pep Total Protein Albumin Arterial Blood Glucose Arterial Blood Ionized Calcium Urine WBC (Auto) Urine Creatinine Digoxin 12/08/19 12/08/19 12/08/19 03:55 05:21 06:01 WBC RBC Hgb Hct MCHC RDW MCV MCH Lymph % (Auto) [place] % (Auto) [place] # Eos # Lymph # (Auto) [place] # (Auto) Eos # (Auto) Seg Neutrophils % Seg Neuts % (Manual) Baso # (Auto) Lymphocytes % (Manual) Monocytes % (Manual) Eosinophils % (Manual) Basophils % (Manual) Seg Neutrophils # Seg Neutrophils # Man Lymphocytes # (Manual) Monocytes # (Manual) Eosinophils # (Manual) Nucleated RBC % Basophils # (Manual) PT INR APTT Heparin Anti-Xa Level 0.20 L ABG pH POC ABG pO2 ABG pO2 ABG HCO3 ABG O2 Saturation ABG Base Excess POC ABG pCO2 ABG Hemoglobin ABG Oxyhemoglobin ABG Sodium ABG Chloride ABG Glucose Oxyhemoglobin Carboxyhemoglobin Sodium 149 H Potassium Chloride 108.0 H Carbon Dioxide BUN 28 H Creatinine 0.6 L Glucose 144 H POC Glucose 143 H Lactic Acid Calcium Phosphorus Magnesium AST 98 H ALT 145 H Lactate Dehydrogenase Total Bilirubin Direct Bilirubin CK-MB (CK-2) C-Reactive Protein NT-Pro-B Natriuret Pep Total Protein 6.0 L Albumin 2.4 L Arterial Blood Glucose Arterial Blood Ionized Calcium Urine WBC (Auto) Urine Creatinine Digoxin 12/08/19 12/08/19 12/08/19 12:08 18:11 23:53 WBC RBC Hgb Hct MCHC RDW MCV MCH Lymph % (Auto) [place] % (Auto) [place] # Eos # Lymph # (Auto) [place] # (Auto) Eos # (Auto) Seg Neutrophils % Seg Neuts % (Manual) Baso # (Auto) Lymphocytes % (Manual) Monocytes % (Manual) Eosinophils % (Manual) Basophils % (Manual) Seg Neutrophils # Seg Neutrophils # Man Lymphocytes # (Manual) Monocytes # (Manual) Eosinophils # (Manual) Nucleated RBC % Basophils # (Manual) PT INR APTT Heparin Anti-Xa Level ABG pH POC ABG pO2 ABG pO2 ABG HCO3 ABG O2 Saturation ABG Base Excess POC ABG pCO2 ABG Hemoglobin ABG Oxyhemoglobin ABG Sodium ABG Chloride ABG Glucose Oxyhemoglobin Carboxyhemoglobin Sodium Potassium Chloride Carbon Dioxide BUN Creatinine Glucose POC Glucose 172 H 122 H 162 H Lactic Acid Calcium Phosphorus Magnesium AST ALT Lactate Dehydrogenase Total Bilirubin Direct Bilirubin CK-MB (CK-2) C-Reactive Protein NT-Pro-B Natriuret Pep Total Protein Albumin Arterial Blood Glucose Arterial Blood Ionized Calcium Urine WBC (Auto) Urine Creatinine Digoxin 12/09/19 12/09/19 12/09/19 04:03 04:03 05:53 WBC RBC Hgb 9.1 L Hct 28.9 L MCHC RDW MCV MCH Lymph % (Auto) [place] % (Auto) [place] # Eos # Lymph # (Auto) [place] # (Auto) Eos # (Auto) Seg Neutrophils % Seg Neuts % (Manual) Baso # (Auto) Lymphocytes % (Manual) Monocytes % (Manual) Eosinophils % (Manual) Basophils % (Manual) Seg Neutrophils # Seg Neutrophils # Man Lymphocytes # (Manual) Monocytes # (Manual) Eosinophils # (Manual) Nucleated RBC % Basophils # (Manual) PT INR APTT Heparin Anti-Xa Level 0.15 L ABG pH POC ABG pO2 ABG pO2 ABG HCO3 ABG O2 Saturation ABG Base Excess POC ABG pCO2 ABG Hemoglobin ABG Oxyhemoglobin ABG Sodium ABG Chloride ABG Glucose Oxyhemoglobin Carboxyhemoglobin Sodium Potassium Chloride Carbon Dioxide BUN Creatinine Glucose POC Glucose 124 H Lactic Acid Calcium Phosphorus Magnesium AST ALT Lactate Dehydrogenase Total Bilirubin Direct Bilirubin CK-MB (CK-2) C-Reactive Protein NT-Pro-B Natriuret Pep Total Protein Albumin Arterial Blood Glucose Arterial Blood Ionized Calcium Urine WBC (Auto) Urine Creatinine Digoxin 12/09/19 12/09/19 12/10/19 09:43 12:41 00:13 WBC RBC Hgb Hct MCHC RDW MCV MCH Lymph % (Auto) [place] % (Auto) [place] # Eos # Lymph # (Auto) [place] # (Auto) Eos # (Auto) Seg Neutrophils % Seg Neuts % (Manual) Baso # (Auto) Lymphocytes % (Manual) Monocytes % (Manual) Eosinophils % (Manual) Basophils % (Manual) Seg Neutrophils # Seg Neutrophils # Man Lymphocytes # (Manual) Monocytes # (Manual) Eosinophils # (Manual) Nucleated RBC % Basophils # (Manual) PT INR APTT Heparin Anti-Xa Level ABG pH POC ABG pO2 ABG pO2 ABG HCO3 ABG O2 Saturation ABG Base Excess POC ABG pCO2 ABG Hemoglobin ABG Oxyhemoglobin ABG Sodium ABG Chloride ABG Glucose Oxyhemoglobin Carboxyhemoglobin Sodium Potassium Chloride Carbon Dioxide BUN 25 H Creatinine 0.6 L Glucose 131 H POC Glucose 109 H 120 H Lactic Acid Calcium Phosphorus Magnesium AST ALT Lactate Dehydrogenase Total Bilirubin Direct Bilirubin CK-MB (CK-2) C-Reactive Protein NT-Pro-B Natriuret Pep Total Protein Albumin Arterial Blood Glucose Arterial Blood Ionized Calcium Urine WBC (Auto) Urine Creatinine Digoxin 12/10/19 12/10/19 12/10/19 04:14 04:14 12:00 WBC 13.3 H RBC 3.34 L Hgb 9.6 L Hct 30.4 L MCHC RDW 15.4 H MCV MCH Lymph % (Auto) [place] % (Auto) [place] # Eos # Lymph # (Auto) [place] # (Auto) Eos # (Auto) Seg Neutrophils % Seg Neuts % (Manual) 75.0 H Baso # (Auto) Lymphocytes % (Manual) 13.0 L Monocytes % (Manual) 8.0 H Eosinophils % (Manual) Basophils % (Manual) 2.0 H Seg Neutrophils # Seg Neutrophils # Man 10.0 H Lymphocytes # (Manual) Monocytes # (Manual) 1.1 H Eosinophils # (Manual) Nucleated RBC % Basophils # (Manual) 0.3 H PT INR APTT Heparin Anti-Xa Level ABG pH POC ABG pO2 ABG pO2 ABG HCO3 ABG O2 Saturation ABG Base Excess POC ABG pCO2 ABG Hemoglobin ABG Oxyhemoglobin ABG Sodium ABG Chloride ABG Glucose Oxyhemoglobin Carboxyhemoglobin Sodium 147 H Potassium Chloride 108.3 H Carbon Dioxide BUN 21 H Creatinine 0.6 L Glucose 104 H POC Glucose 133 H Lactic Acid Calcium Phosphorus Magnesium AST ALT Lactate Dehydrogenase Total Bilirubin Direct Bilirubin CK-MB (CK-2) C-Reactive Protein NT-Pro-B Natriuret Pep Total Protein Albumin Arterial Blood Glucose Arterial Blood Ionized Calcium Urine WBC (Auto) Urine Creatinine Digoxin 12/10/19 12/10/19 12/11/19 18:44 21:20 00:08 WBC 14.9 H RBC 3.36 L Hgb 9.6 L Hct 30.5 L MCHC RDW 15.4 H MCV MCH Lymph % (Auto) [place] % (Auto) [place] # Eos # Lymph # (Auto) [place] # (Auto) Eos # (Auto) Seg Neutrophils % Seg Neuts % (Manual) Baso # (Auto) Lymphocytes % (Manual) Monocytes % (Manual) Eosinophils % (Manual) Basophils % (Manual) Seg Neutrophils # Seg Neutrophils # Man Lymphocytes # (Manual) Monocytes # (Manual) Eosinophils # (Manual) Nucleated RBC % Basophils # (Manual) PT INR APTT Heparin Anti-Xa Level ABG pH POC ABG pO2 ABG pO2 ABG HCO3 ABG O2 Saturation ABG Base Excess POC ABG pCO2 ABG Hemoglobin ABG Oxyhemoglobin ABG Sodium ABG Chloride ABG Glucose Oxyhemoglobin Carboxyhemoglobin Sodium Potassium Chloride Carbon Dioxide BUN Creatinine Glucose POC Glucose 119 H 134 H Lactic Acid Calcium Phosphorus Magnesium AST ALT Lactate Dehydrogenase Total Bilirubin Direct Bilirubin CK-MB (CK-2) C-Reactive Protein NT-Pro-B Natriuret Pep Total Protein Albumin Arterial Blood Glucose Arterial Blood Ionized Calcium Urine WBC (Auto) Urine Creatinine Digoxin 12/11/19 12/11/19 12/11/19 03:54 07:28 08:36 WBC 11.9 H RBC 3.25 L Hgb 9.6 L Hct 29.2 L MCHC RDW 15.7 H MCV MCH Lymph % (Auto) [place] % (Auto) [place] # Eos # Lymph # (Auto) [place] # (Auto) Eos # (Auto) Seg Neutrophils % Seg Neuts % (Manual) Baso # (Auto) Lymphocytes % (Manual) Monocytes % (Manual) Eosinophils % (Manual) Basophils % (Manual) Seg Neutrophils # Seg Neutrophils # Man Lymphocytes # (Manual) Monocytes # (Manual) Eosinophils # (Manual) Nucleated RBC % Basophils # (Manual) PT INR APTT Heparin Anti-Xa Level 0.10 L 0.16 L ABG pH POC ABG pO2 ABG pO2 ABG HCO3 ABG O2 Saturation ABG Base Excess POC ABG pCO2 ABG Hemoglobin ABG Oxyhemoglobin ABG Sodium ABG Chloride ABG Glucose Oxyhemoglobin Carboxyhemoglobin Sodium Potassium Chloride Carbon Dioxide BUN Creatinine Glucose POC Glucose Lactic Acid Calcium Phosphorus Magnesium AST ALT Lactate Dehydrogenase Total Bilirubin Direct Bilirubin CK-MB (CK-2) C-Reactive Protein NT-Pro-B Natriuret Pep Total Protein Albumin Arterial Blood Glucose Arterial Blood Ionized Calcium Urine WBC (Auto) Urine Creatinine Digoxin 12/11/19 12/11/19 12/11/19 08:36 11:45 17:15 WBC RBC Hgb Hct MCHC RDW MCV MCH Lymph % (Auto) [place] % (Auto) [place] # Eos # Lymph # (Auto) [place] # (Auto) Eos # (Auto) Seg Neutrophils % Seg Neuts % (Manual) Baso # (Auto) Lymphocytes % (Manual) Monocytes % (Manual) Eosinophils % (Manual) Basophils % (Manual) Seg Neutrophils # Seg Neutrophils # Man Lymphocytes # (Manual) Monocytes # (Manual) Eosinophils # (Manual) Nucleated RBC % Basophils # (Manual) PT INR APTT Heparin Anti-Xa Level ABG pH POC ABG pO2 ABG pO2 ABG HCO3 ABG O2 Saturation ABG Base Excess POC ABG pCO2 ABG Hemoglobin ABG Oxyhemoglobin ABG Sodium ABG Chloride ABG Glucose Oxyhemoglobin Carboxyhemoglobin Sodium Potassium Chloride Carbon Dioxide BUN Creatinine 0.5 L Glucose 128 H POC Glucose 136 H 109 H Lactic Acid Calcium Phosphorus Magnesium AST ALT Lactate Dehydrogenase Total Bilirubin Direct Bilirubin CK-MB (CK-2) C-Reactive Protein NT-Pro-B Natriuret Pep Total Protein Albumin Arterial Blood Glucose Arterial Blood Ionized Calcium Urine WBC (Auto) Urine Creatinine Digoxin 12/12/19 12/12/19 12/12/19 00:03 05:53 05:53 WBC RBC Hgb 8.8 L Hct 27.6 L MCHC RDW MCV MCH Lymph % (Auto) [place] % (Auto) [place] # Eos # Lymph # (Auto) [place] # (Auto) Eos # (Auto) Seg Neutrophils % Seg Neuts % (Manual) Baso # (Auto) Lymphocytes % (Manual) Monocytes % (Manual) Eosinophils % (Manual) Basophils % (Manual) Seg Neutrophils # Seg Neutrophils # Man Lymphocytes # (Manual) Monocytes # (Manual) Eosinophils # (Manual) Nucleated RBC % Basophils # (Manual) PT INR APTT Heparin Anti-Xa Level 0.22 L ABG pH POC ABG pO2 ABG pO2 ABG HCO3 ABG O2 Saturation ABG Base Excess POC ABG pCO2 ABG Hemoglobin ABG Oxyhemoglobin ABG Sodium ABG Chloride ABG Glucose Oxyhemoglobin Carboxyhemoglobin Sodium Potassium Chloride Carbon Dioxide BUN Creatinine Glucose POC Glucose 116 H Lactic Acid Calcium Phosphorus Magnesium AST ALT Lactate Dehydrogenase Total Bilirubin Direct Bilirubin CK-MB (CK-2) C-Reactive Protein NT-Pro-B Natriuret Pep Total Protein Albumin Arterial Blood Glucose Arterial Blood Ionized Calcium Urine WBC (Auto) Urine Creatinine Digoxin 12/12/19 12/12/19 12/12/19 09:38 12:18 17:44 WBC RBC Hgb Hct MCHC RDW MCV MCH Lymph % (Auto) [place] % (Auto) [place] # Eos # Lymph # (Auto) [place] # (Auto) Eos # (Auto) Seg Neutrophils % Seg Neuts % (Manual) Baso # (Auto) Lymphocytes % (Manual) Monocytes % (Manual) Eosinophils % (Manual) Basophils % (Manual) Seg Neutrophils # Seg Neutrophils # Man Lymphocytes # (Manual) Monocytes # (Manual) Eosinophils # (Manual) Nucleated RBC % Basophils # (Manual) PT INR APTT Heparin Anti-Xa Level ABG pH POC ABG pO2 ABG pO2 ABG HCO3 ABG O2 Saturation ABG Base Excess POC ABG pCO2 ABG Hemoglobin ABG Oxyhemoglobin ABG Sodium ABG Chloride ABG Glucose Oxyhemoglobin Carboxyhemoglobin Sodium Potassium Chloride Carbon Dioxide BUN Creatinine Glucose POC Glucose 115 H 146 H 146 H Lactic Acid Calcium Phosphorus Magnesium AST ALT Lactate Dehydrogenase Total Bilirubin Direct Bilirubin CK-MB (CK-2) C-Reactive Protein NT-Pro-B Natriuret Pep Total Protein Albumin Arterial Blood Glucose Arterial Blood Ionized Calcium Urine WBC (Auto) Urine Creatinine Digoxin 12/12/19 12/13/19 12/13/19 23:33 05:32 05:32 WBC 13.1 H RBC 3.27 L Hgb 9.5 L Hct 29.3 L MCHC RDW 15.6 H MCV MCH Lymph % (Auto) [place] % (Auto) [place] # Eos # Lymph # (Auto) [place] # (Auto) Eos # (Auto) Seg Neutrophils % Seg Neuts % (Manual) 74.0 H Baso # (Auto) Lymphocytes % (Manual) 8.0 L Monocytes % (Manual) 9.0 H Eosinophils % (Manual) 5.0 H Basophils % (Manual) Seg Neutrophils # Seg Neutrophils # Man 9.7 H Lymphocytes # (Manual) 1.0 L Monocytes # (Manual) 1.2 H Eosinophils # (Manual) 0.7 H Nucleated RBC % Basophils # (Manual) PT INR APTT Heparin Anti-Xa Level 0.20 L ABG pH POC ABG pO2 ABG pO2 ABG HCO3 ABG O2 Saturation ABG Base Excess POC ABG pCO2 ABG Hemoglobin ABG Oxyhemoglobin ABG Sodium ABG Chloride ABG Glucose Oxyhemoglobin Carboxyhemoglobin Sodium Potassium Chloride Carbon Dioxide BUN Creatinine Glucose POC Glucose 126 H Lactic Acid Calcium Phosphorus Magnesium AST ALT Lactate Dehydrogenase Total Bilirubin Direct Bilirubin CK-MB (CK-2) C-Reactive Protein NT-Pro-B Natriuret Pep Total Protein Albumin Arterial Blood Glucose Arterial Blood Ionized Calcium Urine WBC (Auto) Urine Creatinine Digoxin 12/13/19 12/13/19 12/13/19 05:32 05:46 11:57 WBC RBC Hgb Hct MCHC RDW MCV MCH Lymph % (Auto) [place] % (Auto) [place] # Eos # Lymph # (Auto) [place] # (Auto) Eos # (Auto) Seg Neutrophils % Seg Neuts % (Manual) Baso # (Auto) Lymphocytes % (Manual) Monocytes % (Manual) Eosinophils % (Manual) Basophils % (Manual) Seg Neutrophils # Seg Neutrophils # Man Lymphocytes # (Manual) Monocytes # (Manual) Eosinophils # (Manual) Nucleated RBC % Basophils # (Manual) PT INR APTT Heparin Anti-Xa Level ABG pH POC ABG pO2 ABG pO2 ABG HCO3 ABG O2 Saturation ABG Base Excess POC ABG pCO2 ABG Hemoglobin ABG Oxyhemoglobin ABG Sodium ABG Chloride ABG Glucose Oxyhemoglobin Carboxyhemoglobin Sodium Potassium Chloride Carbon Dioxide 31 H BUN Creatinine 0.6 L Glucose 114 H POC Glucose 118 H 133 H Lactic Acid Calcium Phosphorus Magnesium AST ALT Lactate Dehydrogenase Total Bilirubin Direct Bilirubin CK-MB (CK-2) C-Reactive Protein NT-Pro-B Natriuret Pep Total Protein Albumin Arterial Blood Glucose Arterial Blood Ionized Calcium Urine WBC (Auto) Urine Creatinine Digoxin 12/13/19 12/13/19 12/14/19 17:44 23:46 05:32 WBC RBC Hgb Hct MCHC RDW MCV MCH Lymph % (Auto) [place] % (Auto) [place] # Eos # Lymph # (Auto) [place] # (Auto) Eos # (Auto) Seg Neutrophils % Seg Neuts % (Manual) Baso # (Auto) Lymphocytes % (Manual) Monocytes % (Manual) Eosinophils % (Manual) Basophils % (Manual) Seg Neutrophils # Seg Neutrophils # Man Lymphocytes # (Manual) Monocytes # (Manual) Eosinophils # (Manual) Nucleated RBC % Basophils # (Manual) PT INR APTT Heparin Anti-Xa Level ABG pH POC ABG pO2 ABG pO2 ABG HCO3 ABG O2 Saturation ABG Base Excess POC ABG pCO2 ABG Hemoglobin ABG Oxyhemoglobin ABG Sodium ABG Chloride ABG Glucose Oxyhemoglobin Carboxyhemoglobin Sodium Potassium Chloride Carbon Dioxide BUN Creatinine Glucose POC Glucose 161 H 126 H 139 H Lactic Acid Calcium Phosphorus Magnesium AST ALT Lactate Dehydrogenase Total Bilirubin Direct Bilirubin CK-MB (CK-2) C-Reactive Protein NT-Pro-B Natriuret Pep Total Protein Albumin Arterial Blood Glucose Arterial Blood Ionized Calcium Urine WBC (Auto) Urine Creatinine Digoxin 12/14/19 12/14/19 12/14/19 06:03 06:03 09:37 WBC RBC Hgb 9.6 L Hct 30.4 L MCHC RDW MCV MCH Lymph % (Auto) [place] % (Auto) [place] # Eos # Lymph # (Auto) [place] # (Auto) Eos # (Auto) Seg Neutrophils % Seg Neuts % (Manual) Baso # (Auto) Lymphocytes % (Manual) Monocytes % (Manual) Eosinophils % (Manual) Basophils % (Manual) Seg Neutrophils # Seg Neutrophils # Man Lymphocytes # (Manual) Monocytes # (Manual) Eosinophils # (Manual) Nucleated RBC % Basophils # (Manual) PT INR APTT Heparin Anti-Xa Level 0.24 L ABG pH POC ABG pO2 ABG pO2 ABG HCO3 ABG O2 Saturation ABG Base Excess POC ABG pCO2 ABG Hemoglobin ABG Oxyhemoglobin ABG Sodium ABG Chloride ABG Glucose Oxyhemoglobin Carboxyhemoglobin Sodium Potassium Chloride Carbon Dioxide BUN Creatinine 0.6 L Glucose 162 H POC Glucose Lactic Acid Calcium Phosphorus Magnesium AST 71 H ALT 118 H Lactate Dehydrogenase Total Bilirubin Direct Bilirubin CK-MB (CK-2) C-Reactive Protein NT-Pro-B Natriuret Pep Total Protein 6.2 L Albumin 2.3 L Arterial Blood Glucose Arterial Blood Ionized Calcium Urine WBC (Auto) Urine Creatinine Digoxin 12/14/19 12/14/19 12/15/19 12:06 18:18 00:19 WBC RBC Hgb Hct MCHC RDW MCV MCH Lymph % (Auto) [place] % (Auto) [place] # Eos # Lymph # (Auto) [place] # (Auto) Eos # (Auto) Seg Neutrophils % Seg Neuts % (Manual) Baso # (Auto) Lymphocytes % (Manual) Monocytes % (Manual) Eosinophils % (Manual) Basophils % (Manual) Seg Neutrophils # Seg Neutrophils # Man Lymphocytes # (Manual) Monocytes # (Manual) Eosinophils # (Manual) Nucleated RBC % Basophils # (Manual) PT INR APTT Heparin Anti-Xa Level ABG pH POC ABG pO2 ABG pO2 ABG HCO3 ABG O2 Saturation ABG Base Excess POC ABG pCO2 ABG Hemoglobin ABG Oxyhemoglobin ABG Sodium ABG Chloride ABG Glucose Oxyhemoglobin Carboxyhemoglobin Sodium Potassium Chloride Carbon Dioxide BUN Creatinine Glucose POC Glucose 147 H 166 H 123 H Lactic Acid Calcium Phosphorus Magnesium AST ALT Lactate Dehydrogenase Total Bilirubin Direct Bilirubin CK-MB (CK-2) C-Reactive Protein NT-Pro-B Natriuret Pep Total Protein Albumin Arterial Blood Glucose Arterial Blood Ionized Calcium Urine WBC (Auto) Urine Creatinine Digoxin 12/15/19 12/15/19 12/15/19 05:28 05:29 05:29 WBC 14.9 H RBC 3.19 L Hgb 9.1 L Hct 28.7 L MCHC RDW 16.0 H MCV MCH Lymph % (Auto) [place] % (Auto) [place] # Eos # Lymph # (Auto) [place] # (Auto) Eos # (Auto) Seg Neutrophils % Seg Neuts % (Manual) Baso # (Auto) Lymphocytes % (Manual) Monocytes % (Manual) Eosinophils % (Manual) Basophils % (Manual) Seg Neutrophils # Seg Neutrophils # Man Lymphocytes # (Manual) Monocytes # (Manual) Eosinophils # (Manual) Nucleated RBC % Basophils # (Manual) PT INR APTT Heparin Anti-Xa Level 0.19 L ABG pH POC ABG pO2 ABG pO2 ABG HCO3 ABG O2 Saturation ABG Base Excess POC ABG pCO2 ABG Hemoglobin ABG Oxyhemoglobin ABG Sodium ABG Chloride ABG Glucose Oxyhemoglobin Carboxyhemoglobin Sodium Potassium Chloride Carbon Dioxide BUN Creatinine 0.6 L Glucose 110 H POC Glucose Lactic Acid Calcium Phosphorus Magnesium AST ALT Lactate Dehydrogenase Total Bilirubin Direct Bilirubin CK-MB (CK-2) C-Reactive Protein NT-Pro-B Natriuret Pep Total Protein Albumin Arterial Blood Glucose Arterial Blood Ionized Calcium Urine WBC (Auto) Urine Creatinine Digoxin 12/15/19 12/15/19 12/15/19 05:53 11:50 17:26 WBC RBC Hgb Hct MCHC RDW MCV MCH Lymph % (Auto) [place] % (Auto) [place] # Eos # Lymph # (Auto) [place] # (Auto) Eos # (Auto) Seg Neutrophils % Seg Neuts % (Manual) Baso # (Auto) Lymphocytes % (Manual) Monocytes % (Manual) Eosinophils % (Manual) Basophils % (Manual) Seg Neutrophils # Seg Neutrophils # Man Lymphocytes # (Manual) Monocytes # (Manual) Eosinophils # (Manual) Nucleated RBC % Basophils # (Manual) PT INR APTT Heparin Anti-Xa Level ABG pH POC ABG pO2 ABG pO2 ABG HCO3 ABG O2 Saturation ABG Base Excess POC ABG pCO2 ABG Hemoglobin ABG Oxyhemoglobin ABG Sodium ABG Chloride ABG Glucose Oxyhemoglobin Carboxyhemoglobin Sodium Potassium Chloride Carbon Dioxide BUN Creatinine Glucose POC Glucose 119 H 132 H 128 H Lactic Acid Calcium Phosphorus Magnesium AST ALT Lactate Dehydrogenase Total Bilirubin Direct Bilirubin CK-MB (CK-2) C-Reactive Protein NT-Pro-B Natriuret Pep Total Protein Albumin Arterial Blood Glucose Arterial Blood Ionized Calcium Urine WBC (Auto) Urine Creatinine Digoxin 12/15/19 12/16/19 12/16/19 23:11 05:30 05:46 WBC RBC Hgb 8.8 L Hct 27.9 L MCHC RDW MCV MCH Lymph % (Auto) [place] % (Auto) [place] # Eos # Lymph # (Auto) [place] # (Auto) Eos # (Auto) Seg Neutrophils % Seg Neuts % (Manual) Baso # (Auto) Lymphocytes % (Manual) Monocytes % (Manual) Eosinophils % (Manual) Basophils % (Manual) Seg Neutrophils # Seg Neutrophils # Man Lymphocytes # (Manual) Monocytes # (Manual) Eosinophils # (Manual) Nucleated RBC % Basophils # (Manual) PT INR APTT Heparin Anti-Xa Level ABG pH POC ABG pO2 ABG pO2 ABG HCO3 ABG O2 Saturation ABG Base Excess POC ABG pCO2 ABG Hemoglobin ABG Oxyhemoglobin ABG Sodium ABG Chloride ABG Glucose Oxyhemoglobin Carboxyhemoglobin Sodium Potassium Chloride Carbon Dioxide BUN Creatinine Glucose POC Glucose 150 H 134 H Lactic Acid Calcium Phosphorus Magnesium AST ALT Lactate Dehydrogenase Total Bilirubin Direct Bilirubin CK-MB (CK-2) C-Reactive Protein NT-Pro-B Natriuret Pep Total Protein Albumin Arterial Blood Glucose Arterial Blood Ionized Calcium Urine WBC (Auto) Urine Creatinine Digoxin 12/16/19 12/16/19 12/16/19 05:46 05:46 11:44 WBC RBC Hgb Hct MCHC RDW MCV MCH Lymph % (Auto) [place] % (Auto) [place] # Eos # Lymph # (Auto) [place] # (Auto) Eos # (Auto) Seg Neutrophils % Seg Neuts % (Manual) Baso # (Auto) Lymphocytes % (Manual) Monocytes % (Manual) Eosinophils % (Manual) Basophils % (Manual) Seg Neutrophils # Seg Neutrophils # Man Lymphocytes # (Manual) Monocytes # (Manual) Eosinophils # (Manual) Nucleated RBC % Basophils # (Manual) PT INR APTT Heparin Anti-Xa Level 0.20 L ABG pH POC ABG pO2 ABG pO2 ABG HCO3 ABG O2 Saturation ABG Base Excess POC ABG pCO2 ABG Hemoglobin ABG Oxyhemoglobin ABG Sodium ABG Chloride ABG Glucose Oxyhemoglobin Carboxyhemoglobin Sodium Potassium Chloride Carbon Dioxide 31 H BUN Creatinine 0.5 L Glucose 147 H POC Glucose 164 H Lactic Acid Calcium Phosphorus Magnesium AST ALT Lactate Dehydrogenase Total Bilirubin Direct Bilirubin CK-MB (CK-2) C-Reactive Protein NT-Pro-B Natriuret Pep Total Protein Albumin Arterial Blood Glucose Arterial Blood Ionized Calcium Urine WBC (Auto) Urine Creatinine Digoxin 12/16/19 12/16/19 12/17/19 17:17 23:49 05:30 WBC 13.9 H RBC 3.27 L Hgb 9.4 L Hct 29.2 L MCHC RDW 16.0 H MCV MCH Lymph % (Auto) [place] % (Auto) 8.8 H [place] # Eos # Lymph # (Auto) [place] # (Auto) 1.2 H Eos # (Auto) 0.5 H Seg Neutrophils % 70.5 H Seg Neuts % (Manual) Baso # (Auto) 0.2 H Lymphocytes % (Manual) Monocytes % (Manual) Eosinophils % (Manual) Basophils % (Manual) Seg Neutrophils # 9.8 H Seg Neutrophils # Man Lymphocytes # (Manual) Monocytes # (Manual) Eosinophils # (Manual) Nucleated RBC % Basophils # (Manual) PT INR APTT Heparin Anti-Xa Level ABG pH POC ABG pO2 ABG pO2 ABG HCO3 ABG O2 Saturation ABG Base Excess POC ABG pCO2 ABG Hemoglobin ABG Oxyhemoglobin ABG Sodium ABG Chloride ABG Glucose Oxyhemoglobin Carboxyhemoglobin Sodium Potassium Chloride Carbon Dioxide BUN Creatinine Glucose POC Glucose 162 H 144 H Lactic Acid Calcium Phosphorus Magnesium AST ALT Lactate Dehydrogenase Total Bilirubin Direct Bilirubin CK-MB (CK-2) C-Reactive Protein NT-Pro-B Natriuret Pep Total Protein Albumin Arterial Blood Glucose Arterial Blood Ionized Calcium Urine WBC (Auto) Urine Creatinine Digoxin 12/17/19 12/17/19 12/17/19 05:30 06:06 11:50 WBC RBC Hgb Hct MCHC RDW MCV MCH Lymph % (Auto) [place] % (Auto) [place] # Eos # Lymph # (Auto) [place] # (Auto) Eos # (Auto) Seg Neutrophils % Seg Neuts % (Manual) Baso # (Auto) Lymphocytes % (Manual) Monocytes % (Manual) Eosinophils % (Manual) Basophils % (Manual) Seg Neutrophils # Seg Neutrophils # Man Lymphocytes # (Manual) Monocytes # (Manual) Eosinophils # (Manual) Nucleated RBC % Basophils # (Manual) PT INR APTT Heparin Anti-Xa Level ABG pH POC ABG pO2 ABG pO2 ABG HCO3 ABG O2 Saturation ABG Base Excess POC ABG pCO2 ABG Hemoglobin ABG Oxyhemoglobin ABG Sodium ABG Chloride ABG Glucose Oxyhemoglobin Carboxyhemoglobin Sodium Potassium Chloride 97.4 L Carbon Dioxide 32 H BUN Creatinine 0.5 L Glucose 135 H POC Glucose 151 H 140 H Lactic Acid Calcium Phosphorus Magnesium AST ALT Lactate Dehydrogenase Total Bilirubin Direct Bilirubin CK-MB (CK-2) C-Reactive Protein NT-Pro-B Natriuret Pep Total Protein Albumin Arterial Blood Glucose Arterial Blood Ionized Calcium Urine WBC (Auto) Urine Creatinine Digoxin 12/17/19 12/17/19 12/18/19 17:50 23:46 05:17 WBC RBC Hgb 8.8 L Hct 28.0 L MCHC RDW MCV MCH Lymph % (Auto) [place] % (Auto) [place] # Eos # Lymph # (Auto) [place] # (Auto) Eos # (Auto) Seg Neutrophils % Seg Neuts % (Manual) Baso # (Auto) Lymphocytes % (Manual) Monocytes % (Manual) Eosinophils % (Manual) Basophils % (Manual) Seg Neutrophils # Seg Neutrophils # Man Lymphocytes # (Manual) Monocytes # (Manual) Eosinophils # (Manual) Nucleated RBC % Basophils # (Manual) PT INR APTT Heparin Anti-Xa Level ABG pH POC ABG pO2 ABG pO2 ABG HCO3 ABG O2 Saturation ABG Base Excess POC ABG pCO2 ABG Hemoglobin ABG Oxyhemoglobin ABG Sodium ABG Chloride ABG Glucose Oxyhemoglobin Carboxyhemoglobin Sodium Potassium Chloride Carbon Dioxide BUN Creatinine Glucose POC Glucose 158 H 150 H Lactic Acid Calcium Phosphorus Magnesium AST ALT Lactate Dehydrogenase Total Bilirubin Direct Bilirubin CK-MB (CK-2) C-Reactive Protein NT-Pro-B Natriuret Pep Total Protein Albumin Arterial Blood Glucose Arterial Blood Ionized Calcium Urine WBC (Auto) Urine Creatinine Digoxin 12/18/19 12/18/19 12/18/19 05:17 05:49 11:12 WBC RBC Hgb Hct MCHC RDW MCV MCH Lymph % (Auto) [place] % (Auto) [place] # Eos # Lymph # (Auto) [place] # (Auto) Eos # (Auto) Seg Neutrophils % Seg Neuts % (Manual) Baso # (Auto) Lymphocytes % (Manual) Monocytes % (Manual) Eosinophils % (Manual) Basophils % (Manual) Seg Neutrophils # Seg Neutrophils # Man Lymphocytes # (Manual) Monocytes # (Manual) Eosinophils # (Manual) Nucleated RBC % Basophils # (Manual) PT INR APTT Heparin Anti-Xa Level 0.16 L ABG pH POC ABG pO2 ABG pO2 ABG HCO3 ABG O2 Saturation ABG Base Excess POC ABG pCO2 ABG Hemoglobin ABG Oxyhemoglobin ABG Sodium ABG Chloride ABG Glucose Oxyhemoglobin Carboxyhemoglobin Sodium Potassium Chloride Carbon Dioxide BUN Creatinine Glucose POC Glucose 127 H 191 H Lactic Acid Calcium Phosphorus Magnesium AST ALT Lactate Dehydrogenase Total Bilirubin Direct Bilirubin CK-MB (CK-2) C-Reactive Protein NT-Pro-B Natriuret Pep Total Protein Albumin Arterial Blood Glucose Arterial Blood Ionized Calcium Urine WBC (Auto) Urine Creatinine Digoxin 12/18/19 12/18/19 12/19/19 17:03 20:16 00:08 WBC RBC Hgb Hct MCHC RDW MCV MCH Lymph % (Auto) [place] % (Auto) [place] # Eos # Lymph # (Auto) [place] # (Auto) Eos # (Auto) Seg Neutrophils % Seg Neuts % (Manual) Baso # (Auto) Lymphocytes % (Manual) Monocytes % (Manual) Eosinophils % (Manual) Basophils % (Manual) Seg Neutrophils # Seg Neutrophils # Man Lymphocytes # (Manual) Monocytes # (Manual) Eosinophils # (Manual) Nucleated RBC % Basophils # (Manual) PT INR APTT Heparin Anti-Xa Level ABG pH POC ABG pO2 ABG pO2 ABG HCO3 ABG O2 Saturation ABG Base Excess POC ABG pCO2 ABG Hemoglobin ABG Oxyhemoglobin ABG Sodium ABG Chloride ABG Glucose Oxyhemoglobin Carboxyhemoglobin Sodium Potassium Chloride Carbon Dioxide BUN Creatinine Glucose POC Glucose 133 H 128 H 129 H Lactic Acid Calcium Phosphorus Magnesium AST ALT Lactate Dehydrogenase Total Bilirubin Direct Bilirubin CK-MB (CK-2) C-Reactive Protein NT-Pro-B Natriuret Pep Total Protein Albumin Arterial Blood Glucose Arterial Blood Ionized Calcium Urine WBC (Auto) Urine Creatinine Digoxin 12/19/19 12/19/19 12/19/19 04:45 04:45 05:35 WBC RBC Hgb Hct MCHC RDW MCV MCH Lymph % (Auto) [place] % (Auto) [place] # Eos # Lymph # (Auto) [place] # (Auto) Eos # (Auto) Seg Neutrophils % Seg Neuts % (Manual) Baso # (Auto) Lymphocytes % (Manual) Monocytes % (Manual) Eosinophils % (Manual) Basophils % (Manual) Seg Neutrophils # Seg Neutrophils # Man Lymphocytes # (Manual) Monocytes # (Manual) Eosinophils # (Manual) Nucleated RBC % Basophils # (Manual) PT INR APTT Heparin Anti-Xa Level 0.17 L ABG pH POC ABG pO2 ABG pO2 ABG HCO3 ABG O2 Saturation ABG Base Excess POC ABG pCO2 ABG Hemoglobin ABG Oxyhemoglobin ABG Sodium ABG Chloride ABG Glucose Oxyhemoglobin Carboxyhemoglobin Sodium Potassium Chloride Carbon Dioxide BUN Creatinine Glucose POC Glucose 120 H Lactic Acid Calcium Phosphorus Magnesium AST ALT Lactate Dehydrogenase 228 H Total Bilirubin Direct Bilirubin CK-MB (CK-2) C-Reactive Protein NT-Pro-B Natriuret Pep Total Protein Albumin Arterial Blood Glucose Arterial Blood Ionized Calcium Urine WBC (Auto) Urine Creatinine Digoxin 12/19/19 12/19/19 12/19/19 09:20 11:32 11:32 WBC 14.6 H RBC 3.08 L Hgb 9.0 L Hct 26.8 L MCHC RDW 15.9 H MCV MCH Lymph % (Auto) [place] % (Auto) [place] # Eos # Lymph # (Auto) [place] # (Auto) Eos # (Auto) Seg Neutrophils % Seg Neuts % (Manual) 82.0 H Baso # (Auto) Lymphocytes % (Manual) 10.0 L Monocytes % (Manual) Eosinophils % (Manual) Basophils % (Manual) Seg Neutrophils # Seg Neutrophils # Man 12.0 H Lymphocytes # (Manual) Monocytes # (Manual) 0.9 H Eosinophils # (Manual) Nucleated RBC % 1.0 H Basophils # (Manual) PT INR APTT Heparin Anti-Xa Level ABG pH 7.451 H POC ABG pO2 ABG pO2 62.6 L ABG HCO3 33.2 H ABG O2 Saturation 93.8 L ABG Base Excess 8.3 H POC ABG pCO2 ABG Hemoglobin 8.3 L ABG Oxyhemoglobin ABG Sodium ABG Chloride ABG Glucose Oxyhemoglobin 91.9 L Carboxyhemoglobin Sodium Potassium Chloride 95.0 L Carbon Dioxide 33 H BUN 22 H Creatinine 0.6 L Glucose 150 H POC Glucose Lactic Acid Calcium Phosphorus Magnesium AST ALT Lactate Dehydrogenase Total Bilirubin Direct Bilirubin CK-MB (CK-2) C-Reactive Protein NT-Pro-B Natriuret Pep Total Protein 6.2 L Albumin 2.4 L Arterial Blood Glucose Arterial Blood Ionized Calcium Urine WBC (Auto) Urine Creatinine Digoxin 12/19/19 12/19/19 12/20/19 11:56 18:17 00:09 WBC RBC Hgb Hct MCHC RDW MCV MCH Lymph % (Auto) [place] % (Auto) [place] # Eos # Lymph # (Auto) [place] # (Auto) Eos # (Auto) Seg Neutrophils % Seg Neuts % (Manual) Baso # (Auto) Lymphocytes % (Manual) Monocytes % (Manual) Eosinophils % (Manual) Basophils % (Manual) Seg Neutrophils # Seg Neutrophils # Man Lymphocytes # (Manual) Monocytes # (Manual) Eosinophils # (Manual) Nucleated RBC % Basophils # (Manual) PT INR APTT Heparin Anti-Xa Level ABG pH POC ABG pO2 ABG pO2 ABG HCO3 ABG O2 Saturation ABG Base Excess POC ABG pCO2 ABG Hemoglobin ABG Oxyhemoglobin ABG Sodium ABG Chloride ABG Glucose Oxyhemoglobin Carboxyhemoglobin Sodium Potassium Chloride Carbon Dioxide BUN Creatinine Glucose POC Glucose 156 H 156 H 155 H Lactic Acid Calcium Phosphorus Magnesium AST ALT Lactate Dehydrogenase Total Bilirubin Direct Bilirubin CK-MB (CK-2) C-Reactive Protein NT-Pro-B Natriuret Pep Total Protein Albumin Arterial Blood Glucose Arterial Blood Ionized Calcium Urine WBC (Auto) Urine Creatinine Digoxin 12/20/19 12/20/19 12/20/19 05:26 06:02 18:17 WBC RBC Hgb Hct MCHC RDW MCV MCH Lymph % (Auto) [place] % (Auto) [place] # Eos # Lymph # (Auto) [place] # (Auto) Eos # (Auto) Seg Neutrophils % Seg Neuts % (Manual) Baso # (Auto) Lymphocytes % (Manual) Monocytes % (Manual) Eosinophils % (Manual) Basophils % (Manual) Seg Neutrophils # Seg Neutrophils # Man Lymphocytes # (Manual) Monocytes # (Manual) Eosinophils # (Manual) Nucleated RBC % Basophils # (Manual) PT INR APTT Heparin Anti-Xa Level 0.19 L ABG pH POC ABG pO2 ABG pO2 ABG HCO3 ABG O2 Saturation ABG Base Excess POC ABG pCO2 ABG Hemoglobin ABG Oxyhemoglobin ABG Sodium ABG Chloride ABG Glucose Oxyhemoglobin Carboxyhemoglobin Sodium Potassium Chloride Carbon Dioxide BUN Creatinine Glucose POC Glucose 137 H 128 H Lactic Acid Calcium Phosphorus Magnesium AST ALT Lactate Dehydrogenase Total Bilirubin Direct Bilirubin CK-MB (CK-2) C-Reactive Protein NT-Pro-B Natriuret Pep Total Protein Albumin Arterial Blood Glucose Arterial Blood Ionized Calcium Urine WBC (Auto) Urine Creatinine Digoxin 12/20/19 12/21/19 12/21/19 23:34 05:31 05:31 WBC 12.7 H RBC 3.09 L Hgb 8.9 L Hct 27.4 L MCHC RDW 15.8 H MCV MCH Lymph % (Auto) 12.1 L [place] % (Auto) 7.8 H [place] # Eos # Lymph # (Auto) [place] # (Auto) 1.0 H Eos # (Auto) Seg Neutrophils % 77.1 H Seg Neuts % (Manual) Baso # (Auto) Lymphocytes % (Manual) Monocytes % (Manual) Eosinophils % (Manual) Basophils % (Manual) Seg Neutrophils # 9.8 H Seg Neutrophils # Man Lymphocytes # (Manual) Monocytes # (Manual) Eosinophils # (Manual) Nucleated RBC % Basophils # (Manual) PT INR APTT Heparin Anti-Xa Level ABG pH POC ABG pO2 ABG pO2 ABG HCO3 ABG O2 Saturation ABG Base Excess POC ABG pCO2 ABG Hemoglobin ABG Oxyhemoglobin ABG Sodium ABG Chloride ABG Glucose Oxyhemoglobin Carboxyhemoglobin Sodium Potassium Chloride 96.9 L Carbon Dioxide 37 H BUN 27 H Creatinine 0.7 L Glucose 140 H POC Glucose 145 H Lactic Acid Calcium Phosphorus Magnesium AST ALT Lactate Dehydrogenase Total Bilirubin Direct Bilirubin CK-MB (CK-2) C-Reactive Protein NT-Pro-B Natriuret Pep Total Protein Albumin Arterial Blood Glucose Arterial Blood Ionized Calcium Urine WBC (Auto) Urine Creatinine Digoxin 12/21/19 12/21/19 12/21/19 05:38 10:13 11:51 WBC RBC Hgb Hct MCHC RDW MCV MCH Lymph % (Auto) [place] % (Auto) [place] # Eos # Lymph # (Auto) [place] # (Auto) Eos # (Auto) Seg Neutrophils % Seg Neuts % (Manual) Baso # (Auto) Lymphocytes % (Manual) Monocytes % (Manual) Eosinophils % (Manual) Basophils % (Manual) Seg Neutrophils # Seg Neutrophils # Man Lymphocytes # (Manual) Monocytes # (Manual) Eosinophils # (Manual) Nucleated RBC % Basophils # (Manual) PT INR APTT 23.9 L Heparin Anti-Xa Level < 0.10 L ABG pH POC ABG pO2 ABG pO2 ABG HCO3 ABG O2 Saturation ABG Base Excess POC ABG pCO2 ABG Hemoglobin ABG Oxyhemoglobin ABG Sodium ABG Chloride ABG Glucose Oxyhemoglobin Carboxyhemoglobin Sodium Potassium Chloride Carbon Dioxide BUN Creatinine Glucose POC Glucose 151 H 145 H Lactic Acid Calcium Phosphorus Magnesium AST ALT Lactate Dehydrogenase Total Bilirubin Direct Bilirubin CK-MB (CK-2) C-Reactive Protein NT-Pro-B Natriuret Pep Total Protein Albumin Arterial Blood Glucose Arterial Blood Ionized Calcium Urine WBC (Auto) Urine Creatinine Digoxin 12/21/19 12/22/19 12/22/19 17:16 00:01 01:33 WBC RBC Hgb Hct MCHC RDW MCV MCH Lymph % (Auto) [place] % (Auto) [place] # Eos # Lymph # (Auto) [place] # (Auto) Eos # (Auto) Seg Neutrophils % Seg Neuts % (Manual) Baso # (Auto) Lymphocytes % (Manual) Monocytes % (Manual) Eosinophils % (Manual) Basophils % (Manual) Seg Neutrophils # Seg Neutrophils # Man Lymphocytes # (Manual) Monocytes # (Manual) Eosinophils # (Manual) Nucleated RBC % Basophils # (Manual) PT INR APTT Heparin Anti-Xa Level 0.10 L ABG pH POC ABG pO2 ABG pO2 ABG HCO3 ABG O2 Saturation ABG Base Excess POC ABG pCO2 ABG Hemoglobin ABG Oxyhemoglobin ABG Sodium ABG Chloride ABG Glucose Oxyhemoglobin Carboxyhemoglobin Sodium Potassium Chloride Carbon Dioxide BUN Creatinine Glucose POC Glucose 167 H 179 H Lactic Acid Calcium Phosphorus Magnesium AST ALT Lactate Dehydrogenase Total Bilirubin Direct Bilirubin CK-MB (CK-2) C-Reactive Protein NT-Pro-B Natriuret Pep Total Protein Albumin Arterial Blood Glucose Arterial Blood Ionized Calcium Urine WBC (Auto) Urine Creatinine Digoxin 12/22/19 12/22/19 12/22/19 03:22 05:10 05:10 WBC 13.8 H RBC 3.20 L Hgb 8.9 L Hct 28.1 L MCHC RDW 15.9 H MCV MCH Lymph % (Auto) [place] % (Auto) [place] # Eos # Lymph # (Auto) [place] # (Auto) Eos # (Auto) Seg Neutrophils % Seg Neuts % (Manual) Baso # (Auto) Lymphocytes % (Manual) Monocytes % (Manual) Eosinophils % (Manual) Basophils % (Manual) Seg Neutrophils # Seg Neutrophils # Man Lymphocytes # (Manual) Monocytes # (Manual) Eosinophils # (Manual) Nucleated RBC % Basophils # (Manual) PT INR APTT Heparin Anti-Xa Level ABG pH POC ABG pO2 52.3 L ABG pO2 ABG HCO3 ABG O2 Saturation ABG Base Excess POC ABG pCO2 52.9 H ABG Hemoglobin 10.7 L ABG Oxyhemoglobin 84 L ABG Sodium ABG Chloride ABG Glucose Oxyhemoglobin Carboxyhemoglobin Sodium Potassium Chloride 96.6 L Carbon Dioxide BUN 25 H Creatinine 0.7 L Glucose 129 H POC Glucose Lactic Acid Calcium Phosphorus Magnesium AST ALT Lactate Dehydrogenase Total Bilirubin Direct Bilirubin CK-MB (CK-2) C-Reactive Protein NT-Pro-B Natriuret Pep Total Protein Albumin Arterial Blood Glucose Arterial Blood Ionized Calcium Urine WBC (Auto) Urine Creatinine Digoxin 12/22/19 12/22/19 12/22/19 05:18 12:32 12:43 WBC RBC Hgb Hct MCHC RDW MCV MCH Lymph % (Auto) [place] % (Auto) [place] # Eos # Lymph # (Auto) [place] # (Auto) Eos # (Auto) Seg Neutrophils % Seg Neuts % (Manual) Baso # (Auto) Lymphocytes % (Manual) Monocytes % (Manual) Eosinophils % (Manual) Basophils % (Manual) Seg Neutrophils # Seg Neutrophils # Man Lymphocytes # (Manual) Monocytes # (Manual) Eosinophils # (Manual) Nucleated RBC % Basophils # (Manual) PT INR APTT Heparin Anti-Xa Level 0.18 L ABG pH POC ABG pO2 ABG pO2 ABG HCO3 ABG O2 Saturation ABG Base Excess POC ABG pCO2 ABG Hemoglobin ABG Oxyhemoglobin ABG Sodium ABG Chloride ABG Glucose Oxyhemoglobin Carboxyhemoglobin Sodium Potassium Chloride Carbon Dioxide BUN Creatinine Glucose POC Glucose 131 H 208 H Lactic Acid Calcium Phosphorus Magnesium AST ALT Lactate Dehydrogenase Total Bilirubin Direct Bilirubin CK-MB (CK-2) C-Reactive Protein NT-Pro-B Natriuret Pep Total Protein Albumin Arterial Blood Glucose Arterial Blood Ionized Calcium Urine WBC (Auto) Urine Creatinine Digoxin 12/22/19 12/22/19 12/23/19 17:44 23:20 03:51 WBC 15.2 H RBC 3.43 L Hgb 9.6 L Hct 30.3 L MCHC RDW 15.9 H MCV MCH Lymph % (Auto) [place] % (Auto) [place] # Eos # Lymph # (Auto) [place] # (Auto) Eos # (Auto) Seg Neutrophils % Seg Neuts % (Manual) Baso # (Auto) Lymphocytes % (Manual) Monocytes % (Manual) Eosinophils % (Manual) Basophils % (Manual) Seg Neutrophils # Seg Neutrophils # Man Lymphocytes # (Manual) Monocytes # (Manual) Eosinophils # (Manual) Nucleated RBC % Basophils # (Manual) PT INR APTT Heparin Anti-Xa Level ABG pH POC ABG pO2 ABG pO2 ABG HCO3 ABG O2 Saturation ABG Base Excess POC ABG pCO2 ABG Hemoglobin ABG Oxyhemoglobin ABG Sodium ABG Chloride ABG Glucose Oxyhemoglobin Carboxyhemoglobin Sodium Potassium Chloride Carbon Dioxide BUN Creatinine Glucose POC Glucose 209 H 119 H Lactic Acid Calcium Phosphorus Magnesium AST ALT Lactate Dehydrogenase Total Bilirubin Direct Bilirubin CK-MB (CK-2) C-Reactive Protein NT-Pro-B Natriuret Pep Total Protein Albumin Arterial Blood Glucose Arterial Blood Ionized Calcium Urine WBC (Auto) Urine Creatinine Digoxin 12/23/19 12/23/19 12/23/19 03:51 05:31 12:09 WBC RBC Hgb Hct MCHC RDW MCV MCH Lymph % (Auto) [place] % (Auto) [place] # Eos # Lymph # (Auto) [place] # (Auto) Eos # (Auto) Seg Neutrophils % Seg Neuts % (Manual) Baso # (Auto) Lymphocytes % (Manual) Monocytes % (Manual) Eosinophils % (Manual) Basophils % (Manual) Seg Neutrophils # Seg Neutrophils # Man Lymphocytes # (Manual) Monocytes # (Manual) Eosinophils # (Manual) Nucleated RBC % Basophils # (Manual) PT INR APTT Heparin Anti-Xa Level ABG pH POC ABG pO2 ABG pO2 ABG HCO3 ABG O2 Saturation ABG Base Excess POC ABG pCO2 ABG Hemoglobin ABG Oxyhemoglobin ABG Sodium ABG Chloride ABG Glucose Oxyhemoglobin Carboxyhemoglobin Sodium Potassium Chloride 97.2 L Carbon Dioxide 31 H BUN 23 H Creatinine 0.6 L Glucose 153 H POC Glucose 149 H 144 H Lactic Acid Calcium Phosphorus Magnesium AST ALT Lactate Dehydrogenase Total Bilirubin Direct Bilirubin CK-MB (CK-2) C-Reactive Protein NT-Pro-B Natriuret Pep Total Protein Albumin Arterial Blood Glucose Arterial Blood Ionized Calcium Urine WBC (Auto) Urine Creatinine Digoxin 12/23/19 12/23/19 12/23/19 15:30 17:49 23:31 WBC RBC Hgb Hct MCHC RDW MCV MCH Lymph % (Auto) [place] % (Auto) [place] # Eos # Lymph # (Auto) [place] # (Auto) Eos # (Auto) Seg Neutrophils % Seg Neuts % (Manual) Baso # (Auto) Lymphocytes % (Manual) Monocytes % (Manual) Eosinophils % (Manual) Basophils % (Manual) Seg Neutrophils # Seg Neutrophils # Man Lymphocytes # (Manual) Monocytes # (Manual) Eosinophils # (Manual) Nucleated RBC % Basophils # (Manual) PT INR APTT Heparin Anti-Xa Level 0.21 L ABG pH POC ABG pO2 ABG pO2 ABG HCO3 ABG O2 Saturation ABG Base Excess POC ABG pCO2 ABG Hemoglobin ABG Oxyhemoglobin ABG Sodium ABG Chloride ABG Glucose Oxyhemoglobin Carboxyhemoglobin Sodium Potassium Chloride Carbon Dioxide BUN Creatinine Glucose POC Glucose 192 H 151 H Lactic Acid Calcium Phosphorus Magnesium AST ALT Lactate Dehydrogenase Total Bilirubin Direct Bilirubin CK-MB (CK-2) C-Reactive Protein NT-Pro-B Natriuret Pep Total Protein Albumin Arterial Blood Glucose Arterial Blood Ionized Calcium Urine WBC (Auto) Urine Creatinine Digoxin 12/24/19 12/24/19 12/24/19 05:34 12:13 16:50 WBC RBC Hgb Hct MCHC RDW MCV MCH Lymph % (Auto) [place] % (Auto) [place] # Eos # Lymph # (Auto) [place] # (Auto) Eos # (Auto) Seg Neutrophils % Seg Neuts % (Manual) Baso # (Auto) Lymphocytes % (Manual) Monocytes % (Manual) Eosinophils % (Manual) Basophils % (Manual) Seg Neutrophils # Seg Neutrophils # Man Lymphocytes # (Manual) Monocytes # (Manual) Eosinophils # (Manual) Nucleated RBC % Basophils # (Manual) PT INR APTT Heparin Anti-Xa Level 0.16 L ABG pH POC ABG pO2 ABG pO2 ABG HCO3 ABG O2 Saturation ABG Base Excess POC ABG pCO2 ABG Hemoglobin ABG Oxyhemoglobin ABG Sodium ABG Chloride ABG Glucose Oxyhemoglobin Carboxyhemoglobin Sodium Potassium Chloride Carbon Dioxide BUN Creatinine Glucose POC Glucose 145 H 124 H Lactic Acid Calcium Phosphorus Magnesium AST ALT Lactate Dehydrogenase Total Bilirubin Direct Bilirubin CK-MB (CK-2) C-Reactive Protein NT-Pro-B Natriuret Pep Total Protein Albumin Arterial Blood Glucose Arterial Blood Ionized Calcium Urine WBC (Auto) Urine Creatinine Digoxin 12/24/19 12/25/19 12/25/19 17:53 00:14 04:18 WBC 12.9 H RBC 3.30 L Hgb 9.1 L Hct 28.8 L MCHC RDW 16.4 H MCV MCH Lymph % (Auto) [place] % (Auto) 7.8 H [place] # Eos # Lymph # (Auto) [place] # (Auto) 1.0 H Eos # (Auto) Seg Neutrophils % 75.5 H Seg Neuts % (Manual) Baso # (Auto) Lymphocytes % (Manual) Monocytes % (Manual) Eosinophils % (Manual) Basophils % (Manual) Seg Neutrophils # 9.7 H Seg Neutrophils # Man Lymphocytes # (Manual) Monocytes # (Manual) Eosinophils # (Manual) Nucleated RBC % Basophils # (Manual) PT INR APTT Heparin Anti-Xa Level ABG pH POC ABG pO2 ABG pO2 ABG HCO3 ABG O2 Saturation ABG Base Excess POC ABG pCO2 ABG Hemoglobin ABG Oxyhemoglobin ABG Sodium ABG Chloride ABG Glucose Oxyhemoglobin Carboxyhemoglobin Sodium Potassium Chloride Carbon Dioxide BUN Creatinine Glucose POC Glucose 164 H 148 H Lactic Acid Calcium Phosphorus Magnesium AST ALT Lactate Dehydrogenase Total Bilirubin Direct Bilirubin CK-MB (CK-2) C-Reactive Protein NT-Pro-B Natriuret Pep Total Protein Albumin Arterial Blood Glucose Arterial Blood Ionized Calcium Urine WBC (Auto) Urine Creatinine Digoxin 12/25/19 12/25/19 12/25/19 04:18 05:38 11:44 WBC RBC Hgb Hct MCHC RDW MCV MCH Lymph % (Auto) [place] % (Auto) [place] # Eos # Lymph # (Auto) [place] # (Auto) Eos # (Auto) Seg Neutrophils % Seg Neuts % (Manual) Baso # (Auto) Lymphocytes % (Manual) Monocytes % (Manual) Eosinophils % (Manual) Basophils % (Manual) Seg Neutrophils # Seg Neutrophils # Man Lymphocytes # (Manual) Monocytes # (Manual) Eosinophils # (Manual) Nucleated RBC % Basophils # (Manual) PT INR APTT Heparin Anti-Xa Level ABG pH POC ABG pO2 ABG pO2 ABG HCO3 ABG O2 Saturation ABG Base Excess POC ABG pCO2 ABG Hemoglobin ABG Oxyhemoglobin ABG Sodium ABG Chloride ABG Glucose Oxyhemoglobin Carboxyhemoglobin Sodium Potassium Chloride Carbon Dioxide 33 H BUN 27 H Creatinine 0.6 L Glucose 132 H POC Glucose 152 H 166 H Lactic Acid Calcium Phosphorus Magnesium AST ALT Lactate Dehydrogenase Total Bilirubin Direct Bilirubin CK-MB (CK-2) C-Reactive Protein NT-Pro-B Natriuret Pep Total Protein Albumin Arterial Blood Glucose Arterial Blood Ionized Calcium Urine WBC (Auto) Urine Creatinine Digoxin 12/25/19 12/26/19 12/26/19 18:29 00:17 00:18 WBC RBC Hgb Hct MCHC RDW MCV MCH Lymph % (Auto) [place] % (Auto) [place] # Eos # Lymph # (Auto) [place] # (Auto) Eos # (Auto) Seg Neutrophils % Seg Neuts % (Manual) Baso # (Auto) Lymphocytes % (Manual) Monocytes % (Manual) Eosinophils % (Manual) Basophils % (Manual) Seg Neutrophils # Seg Neutrophils # Man Lymphocytes # (Manual) Monocytes # (Manual) Eosinophils # (Manual) Nucleated RBC % Basophils # (Manual) PT INR APTT Heparin Anti-Xa Level ABG pH POC ABG pO2 ABG pO2 ABG HCO3 ABG O2 Saturation ABG Base Excess POC ABG pCO2 ABG Hemoglobin ABG Oxyhemoglobin ABG Sodium ABG Chloride ABG Glucose Oxyhemoglobin Carboxyhemoglobin Sodium Potassium Chloride 97.8 L Carbon Dioxide BUN 25 H Creatinine 0.6 L Glucose 140 H POC Glucose 194 H 151 H Lactic Acid Calcium Phosphorus Magnesium AST ALT Lactate Dehydrogenase Total Bilirubin Direct Bilirubin CK-MB (CK-2) C-Reactive Protein NT-Pro-B Natriuret Pep Total Protein Albumin Arterial Blood Glucose Arterial Blood Ionized Calcium Urine WBC (Auto) Urine Creatinine Digoxin 12/26/19 12/26/19 12/26/19 05:36 11:41 17:50 WBC RBC Hgb Hct MCHC RDW MCV MCH Lymph % (Auto) [place] % (Auto) [place] # Eos # Lymph # (Auto) [place] # (Auto) Eos # (Auto) Seg Neutrophils % Seg Neuts % (Manual) Baso # (Auto) Lymphocytes % (Manual) Monocytes % (Manual) Eosinophils % (Manual) Basophils % (Manual) Seg Neutrophils # Seg Neutrophils # Man Lymphocytes # (Manual) Monocytes # (Manual) Eosinophils # (Manual) Nucleated RBC % Basophils # (Manual) PT INR APTT Heparin Anti-Xa Level ABG pH POC ABG pO2 ABG pO2 ABG HCO3 ABG O2 Saturation ABG Base Excess POC ABG pCO2 ABG Hemoglobin ABG Oxyhemoglobin ABG Sodium ABG Chloride ABG Glucose Oxyhemoglobin Carboxyhemoglobin Sodium Potassium Chloride Carbon Dioxide BUN Creatinine Glucose POC Glucose 156 H 148 H 139 H Lactic Acid Calcium Phosphorus Magnesium AST ALT Lactate Dehydrogenase Total Bilirubin Direct Bilirubin CK-MB (CK-2) C-Reactive Protein NT-Pro-B Natriuret Pep Total Protein Albumin Arterial Blood Glucose Arterial Blood Ionized Calcium Urine WBC (Auto) Urine Creatinine Digoxin 12/26/19 12/27/19 12/27/19 23:19 05:34 12:02 WBC RBC Hgb Hct MCHC RDW MCV MCH Lymph % (Auto) [place] % (Auto) [place] # Eos # Lymph # (Auto) [place] # (Auto) Eos # (Auto) Seg Neutrophils % Seg Neuts % (Manual) Baso # (Auto) Lymphocytes % (Manual) Monocytes % (Manual) Eosinophils % (Manual) Basophils % (Manual) Seg Neutrophils # Seg Neutrophils # Man Lymphocytes # (Manual) Monocytes # (Manual) Eosinophils # (Manual) Nucleated RBC % Basophils # (Manual) PT INR APTT Heparin Anti-Xa Level ABG pH POC ABG pO2 ABG pO2 ABG HCO3 ABG O2 Saturation ABG Base Excess POC ABG pCO2 ABG Hemoglobin ABG Oxyhemoglobin ABG Sodium ABG Chloride ABG Glucose Oxyhemoglobin Carboxyhemoglobin Sodium Potassium Chloride Carbon Dioxide BUN Creatinine Glucose POC Glucose 161 H 145 H 157 H Lactic Acid Calcium Phosphorus Magnesium AST ALT Lactate Dehydrogenase Total Bilirubin Direct Bilirubin CK-MB (CK-2) C-Reactive Protein NT-Pro-B Natriuret Pep Total Protein Albumin Arterial Blood Glucose Arterial Blood Ionized Calcium Urine WBC (Auto) Urine Creatinine Digoxin 12/27/19 12/27/19 12/27/19 17:35 20:11 23:00 WBC RBC Hgb Hct MCHC RDW MCV MCH Lymph % (Auto) [place] % (Auto) [place] # Eos # Lymph # (Auto) [place] # (Auto) Eos # (Auto) Seg Neutrophils % Seg Neuts % (Manual) Baso # (Auto) Lymphocytes % (Manual) Monocytes % (Manual) Eosinophils % (Manual) Basophils % (Manual) Seg Neutrophils # Seg Neutrophils # Man Lymphocytes # (Manual) Monocytes # (Manual) Eosinophils # (Manual) Nucleated RBC % Basophils # (Manual) PT INR APTT Heparin Anti-Xa Level 0.19 L ABG pH POC ABG pO2 ABG pO2 ABG HCO3 ABG O2 Saturation ABG Base Excess POC ABG pCO2 ABG Hemoglobin ABG Oxyhemoglobin ABG Sodium ABG Chloride ABG Glucose Oxyhemoglobin Carboxyhemoglobin Sodium Potassium Chloride Carbon Dioxide BUN Creatinine Glucose POC Glucose 158 H 155 H Lactic Acid Calcium Phosphorus Magnesium AST ALT Lactate Dehydrogenase Total Bilirubin Direct Bilirubin CK-MB (CK-2) C-Reactive Protein NT-Pro-B Natriuret Pep Total Protein Albumin Arterial Blood Glucose Arterial Blood Ionized Calcium Urine WBC (Auto) Urine Creatinine Digoxin 12/27/19 12/28/19 12/28/19 23:45 02:41 02:41 WBC 13.0 H RBC 3.48 L Hgb 9.5 L Hct 30.6 L MCHC 31 L RDW 16.6 H MCV MCH 27 L Lymph % (Auto) 13.0 L [place] % (Auto) 8.0 H [place] # Eos # Lymph # (Auto) [place] # (Auto) 1.0 H Eos # (Auto) Seg Neutrophils % 76.3 H Seg Neuts % (Manual) Baso # (Auto) Lymphocytes % (Manual) Monocytes % (Manual) Eosinophils % (Manual) Basophils % (Manual) Seg Neutrophils # 9.9 H Seg Neutrophils # Man Lymphocytes # (Manual) Monocytes # (Manual) Eosinophils # (Manual) Nucleated RBC % Basophils # (Manual) PT INR APTT Heparin Anti-Xa Level ABG pH POC ABG pO2 ABG pO2 ABG HCO3 ABG O2 Saturation ABG Base Excess POC ABG pCO2 ABG Hemoglobin ABG Oxyhemoglobin ABG Sodium ABG Chloride ABG Glucose Oxyhemoglobin Carboxyhemoglobin Sodium Potassium Chloride Carbon Dioxide BUN 22 H Creatinine 0.6 L Glucose 101 H POC Glucose 130 H Lactic Acid Calcium Phosphorus Magnesium AST ALT Lactate Dehydrogenase Total Bilirubin Direct Bilirubin CK-MB (CK-2) C-Reactive Protein NT-Pro-B Natriuret Pep Total Protein Albumin Arterial Blood Glucose Arterial Blood Ionized Calcium Urine WBC (Auto) Urine Creatinine Digoxin 12/28/19 12/28/19 12/28/19 06:00 12:34 18:13 WBC RBC Hgb Hct MCHC RDW MCV MCH Lymph % (Auto) [place] % (Auto) [place] # Eos # Lymph # (Auto) [place] # (Auto) Eos # (Auto) Seg Neutrophils % Seg Neuts % (Manual) Baso # (Auto) Lymphocytes % (Manual) Monocytes % (Manual) Eosinophils % (Manual) Basophils % (Manual) Seg Neutrophils # Seg Neutrophils # Man Lymphocytes # (Manual) Monocytes # (Manual) Eosinophils # (Manual) Nucleated RBC % Basophils # (Manual) PT INR APTT Heparin Anti-Xa Level ABG pH POC ABG pO2 ABG pO2 ABG HCO3 ABG O2 Saturation ABG Base Excess POC ABG pCO2 ABG Hemoglobin ABG Oxyhemoglobin ABG Sodium ABG Chloride ABG Glucose Oxyhemoglobin Carboxyhemoglobin Sodium Potassium Chloride Carbon Dioxide BUN Creatinine Glucose POC Glucose 150 H 161 H 128 H Lactic Acid Calcium Phosphorus Magnesium AST ALT Lactate Dehydrogenase Total Bilirubin Direct Bilirubin CK-MB (CK-2) C-Reactive Protein NT-Pro-B Natriuret Pep Total Protein Albumin Arterial Blood Glucose Arterial Blood Ionized Calcium Urine WBC (Auto) Urine Creatinine Digoxin 12/28/19 12/29/19 12/29/19 23:36 05:21 11:40 WBC RBC Hgb Hct MCHC RDW MCV MCH Lymph % (Auto) [place] % (Auto) [place] # Eos # Lymph # (Auto) [place] # (Auto) Eos # (Auto) Seg Neutrophils % Seg Neuts % (Manual) Baso # (Auto) Lymphocytes % (Manual) Monocytes % (Manual) Eosinophils % (Manual) Basophils % (Manual) Seg Neutrophils # Seg Neutrophils # Man Lymphocytes # (Manual) Monocytes # (Manual) Eosinophils # (Manual) Nucleated RBC % Basophils # (Manual) PT INR APTT Heparin Anti-Xa Level ABG pH POC ABG pO2 ABG pO2 ABG HCO3 ABG O2 Saturation ABG Base Excess POC ABG pCO2 ABG Hemoglobin ABG Oxyhemoglobin ABG Sodium ABG Chloride ABG Glucose Oxyhemoglobin Carboxyhemoglobin Sodium Potassium Chloride Carbon Dioxide BUN Creatinine Glucose POC Glucose 137 H 136 H 166 H Lactic Acid Calcium Phosphorus Magnesium AST ALT Lactate Dehydrogenase Total Bilirubin Direct Bilirubin CK-MB (CK-2) C-Reactive Protein NT-Pro-B Natriuret Pep Total Protein Albumin Arterial Blood Glucose Arterial Blood Ionized Calcium Urine WBC (Auto) Urine Creatinine Digoxin 12/29/19 12/29/19 12/29/19 17:23 19:21 23:38 WBC RBC Hgb Hct MCHC RDW MCV MCH Lymph % (Auto) [place] % (Auto) [place] # Eos # Lymph # (Auto) [place] # (Auto) Eos # (Auto) Seg Neutrophils % Seg Neuts % (Manual) Baso # (Auto) Lymphocytes % (Manual) Monocytes % (Manual) Eosinophils % (Manual) Basophils % (Manual) Seg Neutrophils # Seg Neutrophils # Man Lymphocytes # (Manual) Monocytes # (Manual) Eosinophils # (Manual) Nucleated RBC % Basophils # (Manual) PT INR APTT Heparin Anti-Xa Level 0.20 L ABG pH POC ABG pO2 ABG pO2 ABG HCO3 ABG O2 Saturation ABG Base Excess POC ABG pCO2 ABG Hemoglobin ABG Oxyhemoglobin ABG Sodium ABG Chloride ABG Glucose Oxyhemoglobin Carboxyhemoglobin Sodium Potassium Chloride Carbon Dioxide BUN Creatinine Glucose POC Glucose 144 H 141 H Lactic Acid Calcium Phosphorus Magnesium AST ALT Lactate Dehydrogenase Total Bilirubin Direct Bilirubin CK-MB (CK-2) C-Reactive Protein NT-Pro-B Natriuret Pep Total Protein Albumin Arterial Blood Glucose Arterial Blood Ionized Calcium Urine WBC (Auto) Urine Creatinine Digoxin 12/30/19 12/30/19 12/30/19 03:58 03:58 04:59 WBC RBC 3.54 L Hgb 9.8 L Hct 30.7 L MCHC RDW 16.8 H MCV MCH Lymph % (Auto) [place] % (Auto) [place] # Eos # Lymph # (Auto) [place] # (Auto) Eos # (Auto) Seg Neutrophils % Seg Neuts % (Manual) Baso # (Auto) Lymphocytes % (Manual) Monocytes % (Manual) Eosinophils % (Manual) Basophils % (Manual) Seg Neutrophils # Seg Neutrophils # Man Lymphocytes # (Manual) Monocytes # (Manual) Eosinophils # (Manual) Nucleated RBC % Basophils # (Manual) PT INR APTT Heparin Anti-Xa Level ABG pH POC ABG pO2 ABG pO2 ABG HCO3 29.8 H ABG O2 Saturation ABG Base Excess 4.8 H POC ABG pCO2 ABG Hemoglobin 11.2 L ABG Oxyhemoglobin ABG Sodium ABG Chloride ABG Glucose Oxyhemoglobin 93.8 L Carboxyhemoglobin Sodium Potassium Chloride 97.8 L Carbon Dioxide BUN 26 H Creatinine Glucose 168 H POC Glucose Lactic Acid Calcium Phosphorus Magnesium AST ALT Lactate Dehydrogenase Total Bilirubin Direct Bilirubin CK-MB (CK-2) C-Reactive Protein NT-Pro-B Natriuret Pep Total Protein Albumin Arterial Blood Glucose Arterial Blood Ionized Calcium Urine WBC (Auto) Urine Creatinine Digoxin 12/30/19 12/30/19 12/30/19 05:45 11:34 17:28 WBC RBC Hgb Hct MCHC RDW MCV MCH Lymph % (Auto) [place] % (Auto) [place] # Eos # Lymph # (Auto) [place] # (Auto) Eos # (Auto) Seg Neutrophils % Seg Neuts % (Manual) Baso # (Auto) Lymphocytes % (Manual) Monocytes % (Manual) Eosinophils % (Manual) Basophils % (Manual) Seg Neutrophils # Seg Neutrophils # Man Lymphocytes # (Manual) Monocytes # (Manual) Eosinophils # (Manual) Nucleated RBC % Basophils # (Manual) PT INR APTT Heparin Anti-Xa Level ABG pH POC ABG pO2 ABG pO2 ABG HCO3 ABG O2 Saturation ABG Base Excess POC ABG pCO2 ABG Hemoglobin ABG Oxyhemoglobin ABG Sodium ABG Chloride ABG Glucose Oxyhemoglobin Carboxyhemoglobin Sodium Potassium Chloride Carbon Dioxide BUN Creatinine Glucose POC Glucose 163 H 180 H 150 H Lactic Acid Calcium Phosphorus Magnesium AST ALT Lactate Dehydrogenase Total Bilirubin Direct Bilirubin CK-MB (CK-2) C-Reactive Protein NT-Pro-B Natriuret Pep Total Protein Albumin Arterial Blood Glucose Arterial Blood Ionized Calcium Urine WBC (Auto) Urine Creatinine Digoxin 10/07/20 10/08/20 10/08/20 23:43 04:55 05:07 WBC RBC Hgb Hct MCHC RDW MCV MCH Lymph % (Auto) [place] % (Auto) [place] # Eos # Lymph # (Auto) [place] # (Auto) Eos # (Auto) Seg Neutrophils % Seg Neuts % (Manual) Baso # (Auto) Lymphocytes % (Manual) Monocytes % (Manual) Eosinophils % (Manual) Basophils % (Manual) Seg Neutrophils # Seg Neutrophils # Man Lymphocytes # (Manual) Monocytes # (Manual) Eosinophils # (Manual) Nucleated RBC % Basophils # (Manual) PT INR APTT Heparin Anti-Xa Level ABG pH POC ABG pO2 ABG pO2 ABG HCO3 ABG O2 Saturation ABG Base Excess POC ABG pCO2 ABG Hemoglobin ABG Oxyhemoglobin ABG Sodium ABG Chloride ABG Glucose Oxyhemoglobin Carboxyhemoglobin Sodium Potassium 5.6 H D Chloride Carbon Dioxide BUN 33 H Creatinine Glucose 131 H POC Glucose 142 H 134 H Lactic Acid Calcium Phosphorus Magnesium AST ALT Lactate Dehydrogenase Total Bilirubin Direct Bilirubin CK-MB (CK-2) C-Reactive Protein NT-Pro-B Natriuret Pep Total Protein Albumin Arterial Blood Glucose Arterial Blood Ionized Calcium Urine WBC (Auto) Urine Creatinine Digoxin 12/31/19 12/31/19 12/31/19 11:30 17:19 17:36 WBC RBC Hgb Hct MCHC RDW MCV MCH Lymph % (Auto) [place] % (Auto) [place] # Eos # Lymph # (Auto) [place] # (Auto) Eos # (Auto) Seg Neutrophils % Seg Neuts % (Manual) Baso # (Auto) Lymphocytes % (Manual) Monocytes % (Manual) Eosinophils % (Manual) Basophils % (Manual) Seg Neutrophils # Seg Neutrophils # Man Lymphocytes # (Manual) Monocytes # (Manual) Eosinophils # (Manual) Nucleated RBC % Basophils # (Manual) PT INR APTT Heparin Anti-Xa Level ABG pH POC ABG pO2 ABG pO2 ABG HCO3 ABG O2 Saturation ABG Base Excess POC ABG pCO2 ABG Hemoglobin ABG Oxyhemoglobin ABG Sodium ABG Chloride ABG Glucose Oxyhemoglobin Carboxyhemoglobin Sodium Potassium Chloride Carbon Dioxide BUN 35 H Creatinine Glucose 156 H POC Glucose 158 H 181 H Lactic Acid Calcium Phosphorus Magnesium AST ALT Lactate Dehydrogenase Total Bilirubin Direct Bilirubin CK-MB (CK-2) C-Reactive Protein NT-Pro-B Natriuret Pep Total Protein Albumin Arterial Blood Glucose Arterial Blood Ionized Calcium Urine WBC (Auto) Urine Creatinine Digoxin 12/31/19 12/31/19 12/31/19 18:16 19:41 21:53 WBC RBC Hgb Hct MCHC RDW MCV MCH Lymph % (Auto) [place] % (Auto) [place] # Eos # Lymph # (Auto) [place] # (Auto) Eos # (Auto) Seg Neutrophils % Seg Neuts % (Manual) Baso # (Auto) Lymphocytes % (Manual) Monocytes % (Manual) Eosinophils % (Manual) Basophils % (Manual) Seg Neutrophils # Seg Neutrophils # Man Lymphocytes # (Manual) Monocytes # (Manual) Eosinophils # (Manual) Nucleated RBC % Basophils # (Manual) PT INR APTT Heparin Anti-Xa Level 0.20 L ABG pH POC ABG pO2 ABG pO2 ABG HCO3 ABG O2 Saturation ABG Base Excess POC ABG pCO2 ABG Hemoglobin ABG Oxyhemoglobin ABG Sodium ABG Chloride ABG Glucose Oxyhemoglobin Carboxyhemoglobin Sodium Potassium Chloride Carbon Dioxide BUN 34 H Creatinine Glucose 169 H POC Glucose 141 H Lactic Acid Calcium Phosphorus Magnesium AST ALT Lactate Dehydrogenase Total Bilirubin Direct Bilirubin CK-MB (CK-2) C-Reactive Protein NT-Pro-B Natriuret Pep Total Protein Albumin Arterial Blood Glucose Arterial Blood Ionized Calcium Urine WBC (Auto) Urine Creatinine Digoxin 12/31/19 01/01/20 01/01/20 23:51 05:17 10:40 WBC RBC Hgb Hct MCHC RDW MCV MCH Lymph % (Auto) [place] % (Auto) [place] # Eos # Lymph # (Auto) [place] # (Auto) Eos # (Auto) Seg Neutrophils % Seg Neuts % (Manual) Baso # (Auto) Lymphocytes % (Manual) Monocytes % (Manual) Eosinophils % (Manual) Basophils % (Manual) Seg Neutrophils # Seg Neutrophils # Man Lymphocytes # (Manual) Monocytes # (Manual) Eosinophils # (Manual) Nucleated RBC % Basophils # (Manual) PT INR APTT Heparin Anti-Xa Level ABG pH POC ABG pO2 ABG pO2 ABG HCO3 ABG O2 Saturation ABG Base Excess POC ABG pCO2 ABG Hemoglobin ABG Oxyhemoglobin ABG Sodium ABG Chloride ABG Glucose Oxyhemoglobin Carboxyhemoglobin Sodium Potassium Chloride Carbon Dioxide BUN 31 H Creatinine 0.7 L Glucose 137 H POC Glucose 131 H 155 H Lactic Acid Calcium Phosphorus Magnesium AST 73 H ALT 97 H Lactate Dehydrogenase Total Bilirubin Direct Bilirubin CK-MB (CK-2) C-Reactive Protein NT-Pro-B Natriuret Pep 3866 H Total Protein Albumin 2.8 L Arterial Blood Glucose Arterial Blood Ionized Calcium Urine WBC (Auto) Urine Creatinine Digoxin 01/01/20 01/01/20 01/01/20 12:26 15:33 17:53 WBC 14.3 H RBC 3.35 L Hgb 9.1 L Hct 28.8 L MCHC RDW 17.0 H MCV MCH 27 L Lymph % (Auto) 7.0 L [place] % (Auto) 7.6 H [place] # Eos # Lymph # (Auto) 1.0 L [place] # (Auto) 1.1 H Eos # (Auto) Seg Neutrophils % 83.3 H Seg Neuts % (Manual) Baso # (Auto) Lymphocytes % (Manual) Monocytes % (Manual) Eosinophils % (Manual) Basophils % (Manual) Seg Neutrophils # 12.0 H Seg Neutrophils # Man Lymphocytes # (Manual) Monocytes # (Manual) Eosinophils # (Manual) Nucleated RBC % Basophils # (Manual) PT INR APTT Heparin Anti-Xa Level ABG pH POC ABG pO2 ABG pO2 ABG HCO3 ABG O2 Saturation ABG Base Excess POC ABG pCO2 ABG Hemoglobin ABG Oxyhemoglobin ABG Sodium ABG Chloride ABG Glucose Oxyhemoglobin Carboxyhemoglobin Sodium Potassium Chloride Carbon Dioxide BUN Creatinine Glucose POC Glucose 128 H 128 H Lactic Acid Calcium Phosphorus Magnesium AST ALT Lactate Dehydrogenase Total Bilirubin Direct Bilirubin CK-MB (CK-2) C-Reactive Protein NT-Pro-B Natriuret Pep Total Protein Albumin Arterial Blood Glucose Arterial Blood Ionized Calcium Urine WBC (Auto) Urine Creatinine Digoxin 01/01/20 01/02/20 01/02/20 23:04 05:39 07:00 WBC RBC Hgb Hct MCHC RDW MCV MCH Lymph % (Auto) [place] % (Auto) [place] # Eos # Lymph # (Auto) [place] # (Auto) Eos # (Auto) Seg Neutrophils % Seg Neuts % (Manual) Baso # (Auto) Lymphocytes % (Manual) Monocytes % (Manual) Eosinophils % (Manual) Basophils % (Manual) Seg Neutrophils # Seg Neutrophils # Man Lymphocytes # (Manual) Monocytes # (Manual) Eosinophils # (Manual) Nucleated RBC % Basophils # (Manual) PT INR APTT Heparin Anti-Xa Level 0.13 L ABG pH POC ABG pO2 ABG pO2 ABG HCO3 ABG O2 Saturation ABG Base Excess POC ABG pCO2 ABG Hemoglobin ABG Oxyhemoglobin ABG Sodium ABG Chloride ABG Glucose Oxyhemoglobin Carboxyhemoglobin Sodium Potassium Chloride Carbon Dioxide BUN Creatinine Glucose POC Glucose 120 H 169 H Lactic Acid Calcium Phosphorus Magnesium AST ALT Lactate Dehydrogenase Total Bilirubin Direct Bilirubin CK-MB (CK-2) C-Reactive Protein NT-Pro-B Natriuret Pep Total Protein Albumin Arterial Blood Glucose Arterial Blood Ionized Calcium Urine WBC (Auto) Urine Creatinine Digoxin 01/02/20 01/02/20 01/02/20 12:15 14:06 17:58 WBC RBC Hgb Hct MCHC RDW MCV MCH Lymph % (Auto) [place] % (Auto) [place] # Eos # Lymph # (Auto) [place] # (Auto) Eos # (Auto) Seg Neutrophils % Seg Neuts % (Manual) Baso # (Auto) Lymphocytes % (Manual) Monocytes % (Manual) Eosinophils % (Manual) Basophils % (Manual) Seg Neutrophils # Seg Neutrophils # Man Lymphocytes # (Manual) Monocytes # (Manual) Eosinophils # (Manual) Nucleated RBC % Basophils # (Manual) PT INR APTT Heparin Anti-Xa Level < 0.10 L ABG pH POC ABG pO2 ABG pO2 ABG HCO3 ABG O2 Saturation ABG Base Excess POC ABG pCO2 ABG Hemoglobin ABG Oxyhemoglobin ABG Sodium ABG Chloride ABG Glucose Oxyhemoglobin Carboxyhemoglobin Sodium Potassium Chloride Carbon Dioxide BUN Creatinine Glucose POC Glucose 190 H 198 H Lactic Acid Calcium Phosphorus Magnesium AST ALT Lactate Dehydrogenase Total Bilirubin Direct Bilirubin CK-MB (CK-2) C-Reactive Protein NT-Pro-B Natriuret Pep Total Protein Albumin Arterial Blood Glucose Arterial Blood Ionized Calcium Urine WBC (Auto) Urine Creatinine Digoxin 01/02/20 01/02/20 01/03/20 21:43 23:33 05:42 WBC RBC Hgb Hct MCHC RDW MCV MCH Lymph % (Auto) [place] % (Auto) [place] # Eos # Lymph # (Auto) [place] # (Auto) Eos # (Auto) Seg Neutrophils % Seg Neuts % (Manual) Baso # (Auto) Lymphocytes % (Manual) Monocytes % (Manual) Eosinophils % (Manual) Basophils % (Manual) Seg Neutrophils # Seg Neutrophils # Man Lymphocytes # (Manual) Monocytes # (Manual) Eosinophils # (Manual) Nucleated RBC % Basophils # (Manual) PT INR APTT Heparin Anti-Xa Level 0.10 L ABG pH POC ABG pO2 ABG pO2 ABG HCO3 ABG O2 Saturation ABG Base Excess POC ABG pCO2 ABG Hemoglobin ABG Oxyhemoglobin ABG Sodium ABG Chloride ABG Glucose Oxyhemoglobin Carboxyhemoglobin Sodium Potassium Chloride Carbon Dioxide BUN Creatinine Glucose POC Glucose 180 H 163 H Lactic Acid Calcium Phosphorus Magnesium AST ALT Lactate Dehydrogenase Total Bilirubin Direct Bilirubin CK-MB (CK-2) C-Reactive Protein NT-Pro-B Natriuret Pep Total Protein Albumin Arterial Blood Glucose Arterial Blood Ionized Calcium Urine WBC (Auto) Urine Creatinine Digoxin 01/03/20 01/03/20 01/03/20 06:50 07:25 07:45 WBC 12.1 H RBC 3.35 L Hgb 9.0 L Hct 28.9 L MCHC 31 L RDW 16.6 H MCV MCH 27 L Lymph % (Auto) 13.0 L [place] % (Auto) 8.6 H [place] # Eos # Lymph # (Auto) [place] # (Auto) 1.0 H Eos # (Auto) Seg Neutrophils % 75.9 H Seg Neuts % (Manual) Baso # (Auto) Lymphocytes % (Manual) Monocytes % (Manual) Eosinophils % (Manual) Basophils % (Manual) Seg Neutrophils # 9.2 H Seg Neutrophils # Man Lymphocytes # (Manual) Monocytes # (Manual) Eosinophils # (Manual) Nucleated RBC % Basophils # (Manual) PT INR APTT Heparin Anti-Xa Level 0.29 L ABG pH POC ABG pO2 ABG pO2 ABG HCO3 ABG O2 Saturation ABG Base Excess POC ABG pCO2 ABG Hemoglobin ABG Oxyhemoglobin ABG Sodium ABG Chloride ABG Glucose Oxyhemoglobin Carboxyhemoglobin Sodium Potassium 3.3 L D Chloride Carbon Dioxide 35 H D BUN 23 H Creatinine 0.6 L Glucose 149 H POC Glucose Lactic Acid Calcium Phosphorus Magnesium AST ALT 88 H Lactate Dehydrogenase Total Bilirubin Direct Bilirubin CK-MB (CK-2) C-Reactive Protein NT-Pro-B Natriuret Pep Total Protein 6.2 L Albumin 2.9 L Arterial Blood Glucose Arterial Blood Ionized Calcium Urine WBC (Auto) Urine Creatinine Digoxin 01/03/20 01/03/20 01/03/20 12:05 17:42 18:30 WBC RBC Hgb Hct MCHC RDW MCV MCH Lymph % (Auto) [place] % (Auto) [place] # Eos # Lymph # (Auto) [place] # (Auto) Eos # (Auto) Seg Neutrophils % Seg Neuts % (Manual) Baso # (Auto) Lymphocytes % (Manual) Monocytes % (Manual) Eosinophils % (Manual) Basophils % (Manual) Seg Neutrophils # Seg Neutrophils # Man Lymphocytes # (Manual) Monocytes # (Manual) Eosinophils # (Manual) Nucleated RBC % Basophils # (Manual) PT INR APTT Heparin Anti-Xa Level ABG pH POC ABG pO2 ABG pO2 70.7 L ABG HCO3 36.1 H ABG O2 Saturation 94.4 L ABG Base Excess 10.0 H POC ABG pCO2 ABG Hemoglobin 9.7 L ABG Oxyhemoglobin ABG Sodium ABG Chloride ABG Glucose Oxyhemoglobin 91.8 L Carboxyhemoglobin Sodium Potassium Chloride Carbon Dioxide BUN Creatinine Glucose POC Glucose 128 H 132 H Lactic Acid Calcium Phosphorus Magnesium AST ALT Lactate Dehydrogenase Total Bilirubin Direct Bilirubin CK-MB (CK-2) C-Reactive Protein NT-Pro-B Natriuret Pep Total Protein Albumin Arterial Blood Glucose Arterial Blood Ionized Calcium Urine WBC (Auto) Urine Creatinine Digoxin 01/04/20 01/04/20 01/04/20 00:10 04:26 05:23 WBC RBC Hgb Hct MCHC RDW MCV MCH Lymph % (Auto) [place] % (Auto) [place] # Eos # Lymph # (Auto) [place] # (Auto) Eos # (Auto) Seg Neutrophils % Seg Neuts % (Manual) Baso # (Auto) Lymphocytes % (Manual) Monocytes % (Manual) Eosinophils % (Manual) Basophils % (Manual) Seg Neutrophils # Seg Neutrophils # Man Lymphocytes # (Manual) Monocytes # (Manual) Eosinophils # (Manual) Nucleated RBC % Basophils # (Manual) PT INR APTT Heparin Anti-Xa Level 0.16 L ABG pH POC ABG pO2 ABG pO2 ABG HCO3 ABG O2 Saturation ABG Base Excess POC ABG pCO2 ABG Hemoglobin ABG Oxyhemoglobin ABG Sodium ABG Chloride ABG Glucose Oxyhemoglobin Carboxyhemoglobin Sodium Potassium Chloride Carbon Dioxide BUN Creatinine Glucose POC Glucose 121 H 119 H Lactic Acid Calcium Phosphorus Magnesium AST ALT Lactate Dehydrogenase Total Bilirubin Direct Bilirubin CK-MB (CK-2) C-Reactive Protein NT-Pro-B Natriuret Pep Total Protein Albumin Arterial Blood Glucose Arterial Blood Ionized Calcium Urine WBC (Auto) Urine Creatinine Digoxin 01/04/20 01/04/20 01/04/20 09:50 09:50 12:18 WBC 15.4 H RBC 3.30 L Hgb 8.7 L Hct 28.2 L MCHC 31 L RDW 17.0 H MCV MCH 26 L Lymph % (Auto) [place] % (Auto) 7.6 H [place] # Eos # Lymph # (Auto) [place] # (Auto) 1.2 H Eos # (Auto) Seg Neutrophils % 75.4 H Seg Neuts % (Manual) Baso # (Auto) Lymphocytes % (Manual) Monocytes % (Manual) Eosinophils % (Manual) Basophils % (Manual) Seg Neutrophils # 11.6 H Seg Neutrophils # Man Lymphocytes # (Manual) Monocytes # (Manual) Eosinophils # (Manual) Nucleated RBC % Basophils # (Manual) PT INR APTT Heparin Anti-Xa Level ABG pH POC ABG pO2 ABG pO2 ABG HCO3 ABG O2 Saturation ABG Base Excess POC ABG pCO2 ABG Hemoglobin ABG Oxyhemoglobin ABG Sodium ABG Chloride ABG Glucose Oxyhemoglobin Carboxyhemoglobin Sodium 148 H Potassium 3.5 L Chloride Carbon Dioxide 32 H BUN Creatinine 0.6 L Glucose 114 H POC Glucose 111 H Lactic Acid Calcium Phosphorus Magnesium AST ALT 59 H Lactate Dehydrogenase Total Bilirubin Direct Bilirubin CK-MB (CK-2) C-Reactive Protein NT-Pro-B Natriuret Pep Total Protein Albumin 2.6 L Arterial Blood Glucose Arterial Blood Ionized Calcium Urine WBC (Auto) Urine Creatinine Digoxin 01/05/20 01/05/20 01/05/20 04:05 04:05 05:19 WBC 11.7 H RBC 3.50 L Hgb 9.3 L Hct 29.9 L MCHC 31 L RDW 16.6 H MCV MCH 27 L Lymph % (Auto) 13.1 L [place] % (Auto) 9.7 H [place] # Eos # Lymph # (Auto) [place] # (Auto) 1.1 H Eos # (Auto) Seg Neutrophils % 74.0 H Seg Neuts % (Manual) Baso # (Auto) Lymphocytes % (Manual) Monocytes % (Manual) Eosinophils % (Manual) Basophils % (Manual) Seg Neutrophils # 8.6 H Seg Neutrophils # Man Lymphocytes # (Manual) Monocytes # (Manual) Eosinophils # (Manual) Nucleated RBC % Basophils # (Manual) PT INR APTT Heparin Anti-Xa Level ABG pH POC ABG pO2 ABG pO2 ABG HCO3 ABG O2 Saturation ABG Base Excess POC ABG pCO2 ABG Hemoglobin ABG Oxyhemoglobin ABG Sodium ABG Chloride ABG Glucose Oxyhemoglobin Carboxyhemoglobin Sodium 151 H Potassium Chloride Carbon Dioxide 34 H BUN Creatinine 0.7 L Glucose POC Glucose 112 H Lactic Acid Calcium Phosphorus Magnesium AST ALT 59 H Lactate Dehydrogenase Total Bilirubin Direct Bilirubin CK-MB (CK-2) C-Reactive Protein NT-Pro-B Natriuret Pep Total Protein 5.8 L Albumin 2.6 L Arterial Blood Glucose Arterial Blood Ionized Calcium Urine WBC (Auto) Urine Creatinine Digoxin 01/05/20 01/06/20 01/06/20 16:04 00:23 04:44 WBC RBC 3.36 L Hgb 8.9 L Hct 28.7 L MCHC 31 L RDW 16.9 H MCV MCH 26 L Lymph % (Auto) [place] % (Auto) 9.4 H [place] # Eos # Lymph # (Auto) [place] # (Auto) Eos # (Auto) Seg Neutrophils % Seg Neuts % (Manual) Baso # (Auto) Lymphocytes % (Manual) Monocytes % (Manual) Eosinophils % (Manual) Basophils % (Manual) Seg Neutrophils # Seg Neutrophils # Man Lymphocytes # (Manual) Monocytes # (Manual) Eosinophils # (Manual) Nucleated RBC % Basophils # (Manual) PT INR APTT Heparin Anti-Xa Level ABG pH POC ABG pO2 ABG pO2 ABG HCO3 ABG O2 Saturation ABG Base Excess POC ABG pCO2 ABG Hemoglobin ABG Oxyhemoglobin ABG Sodium ABG Chloride ABG Glucose Oxyhemoglobin Carboxyhemoglobin Sodium 151 H Potassium 3.2 L Chloride Carbon Dioxide 34 H BUN Creatinine 0.6 L Glucose POC Glucose 107 H Lactic Acid Calcium Phosphorus Magnesium AST ALT Lactate Dehydrogenase Total Bilirubin Direct Bilirubin CK-MB (CK-2) C-Reactive Protein NT-Pro-B Natriuret Pep Total Protein Albumin Arterial Blood Glucose Arterial Blood Ionized Calcium Urine WBC (Auto) Urine Creatinine Digoxin 01/06/20 01/06/20 01/06/20 04:44 05:33 12:04 WBC RBC Hgb Hct MCHC RDW MCV MCH Lymph % (Auto) [place] % (Auto) [place] # Eos # Lymph # (Auto) [place] # (Auto) Eos # (Auto) Seg Neutrophils % Seg Neuts % (Manual) Baso # (Auto) Lymphocytes % (Manual) Monocytes % (Manual) Eosinophils % (Manual) Basophils % (Manual) Seg Neutrophils # Seg Neutrophils # Man Lymphocytes # (Manual) Monocytes # (Manual) Eosinophils # (Manual) Nucleated RBC % Basophils # (Manual) PT INR APTT Heparin Anti-Xa Level ABG pH POC ABG pO2 ABG pO2 ABG HCO3 ABG O2 Saturation ABG Base Excess POC ABG pCO2 ABG Hemoglobin ABG Oxyhemoglobin ABG Sodium ABG Chloride ABG Glucose Oxyhemoglobin Carboxyhemoglobin Sodium 151 H Potassium 3.4 L Chloride Carbon Dioxide 33 H BUN Creatinine 0.6 L Glucose 118 H POC Glucose 118 H 123 H Lactic Acid Calcium Phosphorus Magnesium AST ALT Lactate Dehydrogenase Total Bilirubin Direct Bilirubin CK-MB (CK-2) C-Reactive Protein NT-Pro-B Natriuret Pep Total Protein 6.2 L Albumin 2.6 L Arterial Blood Glucose Arterial Blood Ionized Calcium Urine WBC (Auto) Urine Creatinine Digoxin 01/06/20 01/07/20 01/07/20 17:54 00:06 04:10 WBC RBC 3.42 L Hgb 8.9 L Hct 29.0 L MCHC 31 L RDW 17.1 H MCV MCH 26 L Lymph % (Auto) [place] % (Auto) 8.4 H [place] # Eos # Lymph # (Auto) [place] # (Auto) Eos # (Auto) Seg Neutrophils % Seg Neuts % (Manual) Baso # (Auto) Lymphocytes % (Manual) Monocytes % (Manual) Eosinophils % (Manual) Basophils % (Manual) Seg Neutrophils # Seg Neutrophils # Man Lymphocytes # (Manual) Monocytes # (Manual) Eosinophils # (Manual) Nucleated RBC % Basophils # (Manual) PT INR APTT Heparin Anti-Xa Level ABG pH POC ABG pO2 ABG pO2 ABG HCO3 ABG O2 Saturation ABG Base Excess POC ABG pCO2 ABG Hemoglobin ABG Oxyhemoglobin ABG Sodium ABG Chloride ABG Glucose Oxyhemoglobin Carboxyhemoglobin Sodium Potassium Chloride Carbon Dioxide BUN Creatinine Glucose POC Glucose 112 H 126 H Lactic Acid Calcium Phosphorus Magnesium AST ALT Lactate Dehydrogenase Total Bilirubin Direct Bilirubin CK-MB (CK-2) C-Reactive Protein NT-Pro-B Natriuret Pep Total Protein Albumin Arterial Blood Glucose Arterial Blood Ionized Calcium Urine WBC (Auto) Urine Creatinine Digoxin 01/07/20 01/07/20 01/07/20 04:10 05:59 12:27 WBC RBC Hgb Hct MCHC RDW MCV MCH Lymph % (Auto) [place] % (Auto) [place] # Eos # Lymph # (Auto) [place] # (Auto) Eos # (Auto) Seg Neutrophils % Seg Neuts % (Manual) Baso # (Auto) Lymphocytes % (Manual) Monocytes % (Manual) Eosinophils % (Manual) Basophils % (Manual) Seg Neutrophils # Seg Neutrophils # Man Lymphocytes # (Manual) Monocytes # (Manual) Eosinophils # (Manual) Nucleated RBC % Basophils # (Manual) PT INR APTT Heparin Anti-Xa Level ABG pH POC ABG pO2 ABG pO2 ABG HCO3 ABG O2 Saturation ABG Base Excess POC ABG pCO2 ABG Hemoglobin ABG Oxyhemoglobin ABG Sodium ABG Chloride ABG Glucose Oxyhemoglobin Carboxyhemoglobin Sodium 153 H Potassium 3.5 L Chloride Carbon Dioxide 34 H BUN Creatinine 0.6 L Glucose 121 H POC Glucose 121 H 126 H Lactic Acid Calcium Phosphorus Magnesium AST ALT Lactate Dehydrogenase Total Bilirubin Direct Bilirubin CK-MB (CK-2) C-Reactive Protein NT-Pro-B Natriuret Pep Total Protein 5.9 L Albumin 2.4 L Arterial Blood Glucose Arterial Blood Ionized Calcium Urine WBC (Auto) Urine Creatinine Digoxin 01/07/20 01/08/20 01/08/20 18:12 00:03 05:41 WBC RBC Hgb Hct MCHC RDW MCV MCH Lymph % (Auto) [place] % (Auto) [place] # Eos # Lymph # (Auto) [place] # (Auto) Eos # (Auto) Seg Neutrophils % Seg Neuts % (Manual) Baso # (Auto) Lymphocytes % (Manual) Monocytes % (Manual) Eosinophils % (Manual) Basophils % (Manual) Seg Neutrophils # Seg Neutrophils # Man Lymphocytes # (Manual) Monocytes # (Manual) Eosinophils # (Manual) Nucleated RBC % Basophils # (Manual) PT INR APTT Heparin Anti-Xa Level ABG pH POC ABG pO2 ABG pO2 ABG HCO3 ABG O2 Saturation ABG Base Excess POC ABG pCO2 ABG Hemoglobin ABG Oxyhemoglobin ABG Sodium ABG Chloride ABG Glucose Oxyhemoglobin Carboxyhemoglobin Sodium Potassium Chloride Carbon Dioxide BUN Creatinine Glucose POC Glucose 124 H 130 H 138 H Lactic Acid Calcium Phosphorus Magnesium AST ALT Lactate Dehydrogenase Total Bilirubin Direct Bilirubin CK-MB (CK-2) C-Reactive Protein NT-Pro-B Natriuret Pep Total Protein Albumin Arterial Blood Glucose Arterial Blood Ionized Calcium Urine WBC (Auto) Urine Creatinine Digoxin 01/08/20 01/08/20 01/08/20 09:28 11:42 18:21 WBC RBC Hgb Hct MCHC RDW MCV MCH Lymph % (Auto) [place] % (Auto) [place] # Eos # Lymph # (Auto) [place] # (Auto) Eos # (Auto) Seg Neutrophils % Seg Neuts % (Manual) Baso # (Auto) Lymphocytes % (Manual) Monocytes % (Manual) Eosinophils % (Manual) Basophils % (Manual) Seg Neutrophils # Seg Neutrophils # Man Lymphocytes # (Manual) Monocytes # (Manual) Eosinophils # (Manual) Nucleated RBC % Basophils # (Manual) PT INR APTT Heparin Anti-Xa Level ABG pH POC ABG pO2 ABG pO2 ABG HCO3 ABG O2 Saturation ABG Base Excess POC ABG pCO2 ABG Hemoglobin ABG Oxyhemoglobin ABG Sodium ABG Chloride ABG Glucose Oxyhemoglobin Carboxyhemoglobin Sodium Potassium Chloride Carbon Dioxide BUN Creatinine Glucose POC Glucose 181 H 150 H 129 H Lactic Acid Calcium Phosphorus Magnesium AST ALT Lactate Dehydrogenase Total Bilirubin Direct Bilirubin CK-MB (CK-2) C-Reactive Protein NT-Pro-B Natriuret Pep Total Protein Albumin Arterial Blood Glucose Arterial Blood Ionized Calcium Urine WBC (Auto) Urine Creatinine Digoxin 01/08/20 01/08/20 01/09/20 19:25 23:55 04:11 WBC RBC 3.43 L Hgb 8.9 L Hct 28.7 L MCHC 31 L RDW 17.6 H MCV MCH 26 L Lymph % (Auto) [place] % (Auto) 8.6 H [place] # Eos # Lymph # (Auto) [place] # (Auto) Eos # (Auto) Seg Neutrophils % Seg Neuts % (Manual) Baso # (Auto) Lymphocytes % (Manual) Monocytes % (Manual) Eosinophils % (Manual) Basophils % (Manual) Seg Neutrophils # Seg Neutrophils # Man Lymphocytes # (Manual) Monocytes # (Manual) Eosinophils # (Manual) Nucleated RBC % Basophils # (Manual) PT INR APTT Heparin Anti-Xa Level ABG pH POC ABG pO2 ABG pO2 ABG HCO3 ABG O2 Saturation ABG Base Excess POC ABG pCO2 ABG Hemoglobin ABG Oxyhemoglobin ABG Sodium ABG Chloride ABG Glucose Oxyhemoglobin Carboxyhemoglobin Sodium Potassium Chloride Carbon Dioxide BUN Creatinine 0.7 L Glucose 117 H POC Glucose 132 H Lactic Acid Calcium Phosphorus Magnesium AST ALT Lactate Dehydrogenase Total Bilirubin Direct Bilirubin CK-MB (CK-2) C-Reactive Protein NT-Pro-B Natriuret Pep Total Protein Albumin Arterial Blood Glucose Arterial Blood Ionized Calcium Urine WBC (Auto) Urine Creatinine Digoxin 01/09/20 01/09/20 01/09/20 04:11 05:38 22:58 WBC RBC Hgb Hct MCHC RDW MCV MCH Lymph % (Auto) [place] % (Auto) [place] # Eos # Lymph # (Auto) [place] # (Auto) Eos # (Auto) Seg Neutrophils % Seg Neuts % (Manual) Baso # (Auto) Lymphocytes % (Manual) Monocytes % (Manual) Eosinophils % (Manual) Basophils % (Manual) Seg Neutrophils # Seg Neutrophils # Man Lymphocytes # (Manual) Monocytes # (Manual) Eosinophils # (Manual) Nucleated RBC % Basophils # (Manual) PT INR APTT Heparin Anti-Xa Level ABG pH POC ABG pO2 ABG pO2 ABG HCO3 ABG O2 Saturation ABG Base Excess POC ABG pCO2 ABG Hemoglobin ABG Oxyhemoglobin ABG Sodium ABG Chloride ABG Glucose Oxyhemoglobin Carboxyhemoglobin Sodium 147 H Potassium 3.3 L D Chloride Carbon Dioxide 32 H BUN Creatinine 0.6 L Glucose 106 H POC Glucose 107 H 113 H Lactic Acid Calcium Phosphorus Magnesium AST ALT Lactate Dehydrogenase Total Bilirubin Direct Bilirubin CK-MB (CK-2) C-Reactive Protein NT-Pro-B Natriuret Pep Total Protein Albumin Arterial Blood Glucose Arterial Blood Ionized Calcium Urine WBC (Auto) Urine Creatinine Digoxin 01/10/20 01/10/20 01/10/20 04:05 11:36 17:54 WBC RBC Hgb Hct MCHC RDW MCV MCH Lymph % (Auto) [place] % (Auto) [place] # Eos # Lymph # (Auto) [place] # (Auto) Eos # (Auto) Seg Neutrophils % Seg Neuts % (Manual) Baso # (Auto) Lymphocytes % (Manual) Monocytes % (Manual) Eosinophils % (Manual) Basophils % (Manual) Seg Neutrophils # Seg Neutrophils # Man Lymphocytes # (Manual) Monocytes # (Manual) Eosinophils # (Manual) Nucleated RBC % Basophils # (Manual) PT INR APTT Heparin Anti-Xa Level ABG pH POC ABG pO2 ABG pO2 ABG HCO3 ABG O2 Saturation ABG Base Excess POC ABG pCO2 ABG Hemoglobin ABG Oxyhemoglobin ABG Sodium ABG Chloride ABG Glucose Oxyhemoglobin Carboxyhemoglobin Sodium Potassium Chloride Carbon Dioxide BUN Creatinine 0.7 L Glucose 110 H POC Glucose 129 H 117 H Lactic Acid Calcium Phosphorus Magnesium AST ALT Lactate Dehydrogenase Total Bilirubin Direct Bilirubin CK-MB (CK-2) C-Reactive Protein NT-Pro-B Natriuret Pep Total Protein Albumin Arterial Blood Glucose Arterial Blood Ionized Calcium Urine WBC (Auto) Urine Creatinine Digoxin 01/10/20 01/11/20 01/11/20 23:52 03:19 12:09 WBC RBC Hgb Hct MCHC RDW MCV MCH Lymph % (Auto) [place] % (Auto) [place] # Eos # Lymph # (Auto) [place] # (Auto) Eos # (Auto) Seg Neutrophils % Seg Neuts % (Manual) Baso # (Auto) Lymphocytes % (Manual) Monocytes % (Manual) Eosinophils % (Manual) Basophils % (Manual) Seg Neutrophils # Seg Neutrophils # Man Lymphocytes # (Manual) Monocytes # (Manual) Eosinophils # (Manual) Nucleated RBC % Basophils # (Manual) PT INR APTT Heparin Anti-Xa Level ABG pH POC ABG pO2 ABG pO2 ABG HCO3 ABG O2 Saturation ABG Base Excess POC ABG pCO2 ABG Hemoglobin ABG Oxyhemoglobin ABG Sodium ABG Chloride ABG Glucose Oxyhemoglobin Carboxyhemoglobin Sodium Potassium Chloride Carbon Dioxide BUN Creatinine Glucose POC Glucose 117 H 136 H 115 H Lactic Acid Calcium Phosphorus Magnesium AST ALT Lactate Dehydrogenase Total Bilirubin Direct Bilirubin CK-MB (CK-2) C-Reactive Protein NT-Pro-B Natriuret Pep Total Protein Albumin Arterial Blood Glucose Arterial Blood Ionized Calcium Urine WBC (Auto) Urine Creatinine Digoxin 01/11/20 01/11/20 01/12/20 18:27 23:28 00:23 WBC RBC Hgb 9.8 L Hct 31.6 L MCHC 31 L RDW 17.8 H MCV 83 L MCH 26 L Lymph % (Auto) [place] % (Auto) 8.0 H [place] # Eos # Lymph # (Auto) [place] # (Auto) Eos # (Auto) Seg Neutrophils % Seg Neuts % (Manual) Baso # (Auto) Lymphocytes % (Manual) Monocytes % (Manual) Eosinophils % (Manual) Basophils % (Manual) Seg Neutrophils # Seg Neutrophils # Man Lymphocytes # (Manual) Monocytes # (Manual) Eosinophils # (Manual) Nucleated RBC % Basophils # (Manual) PT INR APTT Heparin Anti-Xa Level ABG pH POC ABG pO2 ABG pO2 ABG HCO3 ABG O2 Saturation ABG Base Excess POC ABG pCO2 ABG Hemoglobin ABG Oxyhemoglobin ABG Sodium ABG Chloride ABG Glucose Oxyhemoglobin Carboxyhemoglobin Sodium Potassium Chloride Carbon Dioxide BUN Creatinine Glucose POC Glucose 118 H 122 H Lactic Acid Calcium Phosphorus Magnesium AST ALT Lactate Dehydrogenase Total Bilirubin Direct Bilirubin CK-MB (CK-2) C-Reactive Protein NT-Pro-B Natriuret Pep Total Protein Albumin Arterial Blood Glucose Arterial Blood Ionized Calcium Urine WBC (Auto) Urine Creatinine Digoxin 01/12/20 01/12/20 01/12/20 00:23 04:18 04:18 WBC RBC Hgb 9.6 L Hct 30.9 L MCHC 31 L RDW 17.3 H MCV 81 L MCH 25 L Lymph % (Auto) [place] % (Auto) [place] # Eos # Lymph # (Auto) [place] # (Auto) Eos # (Auto) Seg Neutrophils % Seg Neuts % (Manual) Baso # (Auto) Lymphocytes % (Manual) Monocytes % (Manual) Eosinophils % (Manual) Basophils % (Manual) Seg Neutrophils # Seg Neutrophils # Man Lymphocytes # (Manual) Monocytes # (Manual) Eosinophils # (Manual) Nucleated RBC % Basophils # (Manual) PT INR APTT Heparin Anti-Xa Level ABG pH POC ABG pO2 ABG pO2 ABG HCO3 ABG O2 Saturation ABG Base Excess POC ABG pCO2 ABG Hemoglobin ABG Oxyhemoglobin ABG Sodium ABG Chloride ABG Glucose Oxyhemoglobin Carboxyhemoglobin Sodium Potassium Chloride Carbon Dioxide BUN Creatinine 0.7 L 0.7 L Glucose 111 H 108 H POC Glucose Lactic Acid Calcium Phosphorus Magnesium AST ALT Lactate Dehydrogenase Total Bilirubin Direct Bilirubin CK-MB (CK-2) C-Reactive Protein NT-Pro-B Natriuret Pep Total Protein Albumin 2.6 L Arterial Blood Glucose Arterial Blood Ionized Calcium Urine WBC (Auto) Urine Creatinine Digoxin 01/12/20 01/12/20 01/12/20 06:03 12:27 13:58 WBC RBC Hgb Hct MCHC RDW MCV MCH Lymph % (Auto) [place] % (Auto) [place] # Eos # Lymph # (Auto) [place] # (Auto) Eos # (Auto) Seg Neutrophils % Seg Neuts % (Manual) Baso # (Auto) Lymphocytes % (Manual) Monocytes % (Manual) Eosinophils % (Manual) Basophils % (Manual) Seg Neutrophils # Seg Neutrophils # Man Lymphocytes # (Manual) Monocytes # (Manual) Eosinophils # (Manual) Nucleated RBC % Basophils # (Manual) PT INR APTT Heparin Anti-Xa Level ABG pH 7.453 H POC ABG pO2 76.6 L ABG pO2 ABG HCO3 ABG O2 Saturation ABG Base Excess POC ABG pCO2 ABG Hemoglobin 10.3 L ABG Oxyhemoglobin ABG Sodium ABG Chloride ABG Glucose 99 H Oxyhemoglobin Carboxyhemoglobin Sodium Potassium Chloride Carbon Dioxide BUN Creatinine Glucose POC Glucose 128 H 121 H Lactic Acid Calcium Phosphorus Magnesium AST ALT Lactate Dehydrogenase Total Bilirubin Direct Bilirubin CK-MB (CK-2) C-Reactive Protein NT-Pro-B Natriuret Pep Total Protein Albumin Arterial Blood Glucose 99 H Arterial Blood Ionized Calcium Urine WBC (Auto) Urine Creatinine Digoxin 01/12/20 01/13/20 01/13/20 18:24 12:01 17:46 WBC RBC Hgb Hct MCHC RDW MCV MCH Lymph % (Auto) [place] % (Auto) [place] # Eos # Lymph # (Auto) [place] # (Auto) Eos # (Auto) Seg Neutrophils % Seg Neuts % (Manual) Baso # (Auto) Lymphocytes % (Manual) Monocytes % (Manual) Eosinophils % (Manual) Basophils % (Manual) Seg Neutrophils # Seg Neutrophils # Man Lymphocytes # (Manual) Monocytes # (Manual) Eosinophils # (Manual) Nucleated RBC % Basophils # (Manual) PT INR APTT Heparin Anti-Xa Level ABG pH POC ABG pO2 ABG pO2 ABG HCO3 ABG O2 Saturation ABG Base Excess POC ABG pCO2 ABG Hemoglobin ABG Oxyhemoglobin ABG Sodium ABG Chloride ABG Glucose Oxyhemoglobin Carboxyhemoglobin Sodium Potassium Chloride Carbon Dioxide BUN Creatinine Glucose POC Glucose 119 H 107 H 124 H Lactic Acid Calcium Phosphorus Magnesium AST ALT Lactate Dehydrogenase Total Bilirubin Direct Bilirubin CK-MB (CK-2) C-Reactive Protein NT-Pro-B Natriuret Pep Total Protein Albumin Arterial Blood Glucose Arterial Blood Ionized Calcium Urine WBC (Auto) Urine Creatinine Digoxin 01/13/20 01/14/20 01/14/20 20:40 00:10 05:33 WBC RBC Hgb Hct MCHC RDW MCV MCH Lymph % (Auto) [place] % (Auto) [place] # Eos # Lymph # (Auto) [place] # (Auto) Eos # (Auto) Seg Neutrophils % Seg Neuts % (Manual) Baso # (Auto) Lymphocytes % (Manual) Monocytes % (Manual) Eosinophils % (Manual) Basophils % (Manual) Seg Neutrophils # Seg Neutrophils # Man Lymphocytes # (Manual) Monocytes # (Manual) Eosinophils # (Manual) Nucleated RBC % Basophils # (Manual) PT INR APTT Heparin Anti-Xa Level ABG pH POC ABG pO2 ABG pO2 65.3 L ABG HCO3 31.8 H ABG O2 Saturation 93.5 L ABG Base Excess 6.7 H POC ABG pCO2 ABG Hemoglobin 13.3 L ABG Oxyhemoglobin ABG Sodium ABG Chloride ABG Glucose Oxyhemoglobin 90.9 L Carboxyhemoglobin Sodium Potassium Chloride Carbon Dioxide BUN Creatinine Glucose POC Glucose 111 H 111 H Lactic Acid Calcium Phosphorus Magnesium AST ALT Lactate Dehydrogenase Total Bilirubin Direct Bilirubin CK-MB (CK-2) C-Reactive Protein NT-Pro-B Natriuret Pep Total Protein Albumin Arterial Blood Glucose Arterial Blood Ionized Calcium Urine WBC (Auto) Urine Creatinine Digoxin 01/14/20 01/14/20 01/14/20 12:10 16:14 16:14 WBC RBC Hgb 10.6 L Hct 34.2 L MCHC 31 L RDW 18.3 H MCV 83 L MCH 26 L Lymph % (Auto) [place] % (Auto) 7.4 H [place] # Eos # Lymph # (Auto) [place] # (Auto) Eos # (Auto) Seg Neutrophils % 71.9 H Seg Neuts % (Manual) Baso # (Auto) Lymphocytes % (Manual) Monocytes % (Manual) Eosinophils % (Manual) Basophils % (Manual) Seg Neutrophils # Seg Neutrophils # Man Lymphocytes # (Manual) Monocytes # (Manual) Eosinophils # (Manual) Nucleated RBC % Basophils # (Manual) PT INR APTT Heparin Anti-Xa Level ABG pH POC ABG pO2 ABG pO2 ABG HCO3 ABG O2 Saturation ABG Base Excess POC ABG pCO2 ABG Hemoglobin ABG Oxyhemoglobin ABG Sodium ABG Chloride ABG Glucose Oxyhemoglobin Carboxyhemoglobin Sodium Potassium Chloride Carbon Dioxide 31 H BUN Creatinine 0.6 L Glucose 131 H POC Glucose 139 H Lactic Acid Calcium Phosphorus Magnesium AST ALT Lactate Dehydrogenase Total Bilirubin Direct Bilirubin CK-MB (CK-2) C-Reactive Protein NT-Pro-B Natriuret Pep Total Protein Albumin Arterial Blood Glucose Arterial Blood Ionized Calcium Urine WBC (Auto) Urine Creatinine Digoxin 01/14/20 01/15/20 01/15/20 18:05 00:52 05:35 WBC RBC Hgb Hct MCHC RDW MCV MCH Lymph % (Auto) [place] % (Auto) [place] # Eos # Lymph # (Auto) [place] # (Auto) Eos # (Auto) Seg Neutrophils % Seg Neuts % (Manual) Baso # (Auto) Lymphocytes % (Manual) Monocytes % (Manual) Eosinophils % (Manual) Basophils % (Manual) Seg Neutrophils # Seg Neutrophils # Man Lymphocytes # (Manual) Monocytes # (Manual) Eosinophils # (Manual) Nucleated RBC % Basophils # (Manual) PT INR APTT Heparin Anti-Xa Level ABG pH POC ABG pO2 ABG pO2 ABG HCO3 ABG O2 Saturation ABG Base Excess POC ABG pCO2 ABG Hemoglobin ABG Oxyhemoglobin ABG Sodium ABG Chloride ABG Glucose Oxyhemoglobin Carboxyhemoglobin Sodium Potassium Chloride Carbon Dioxide BUN Creatinine Glucose POC Glucose 147 H 140 H 159 H Lactic Acid Calcium Phosphorus Magnesium AST ALT Lactate Dehydrogenase Total Bilirubin Direct Bilirubin CK-MB (CK-2) C-Reactive Protein NT-Pro-B Natriuret Pep Total Protein Albumin Arterial Blood Glucose Arterial Blood Ionized Calcium Urine WBC (Auto) Urine Creatinine Digoxin 01/15/20 01/15/20 01/16/20 12:52 17:43 00:32 WBC RBC Hgb Hct MCHC RDW MCV MCH Lymph % (Auto) [place] % (Auto) [place] # Eos # Lymph # (Auto) [place] # (Auto) Eos # (Auto) Seg Neutrophils % Seg Neuts % (Manual) Baso # (Auto) Lymphocytes % (Manual) Monocytes % (Manual) Eosinophils % (Manual) Basophils % (Manual) Seg Neutrophils # Seg Neutrophils # Man Lymphocytes # (Manual) Monocytes # (Manual) Eosinophils # (Manual) Nucleated RBC % Basophils # (Manual) PT INR APTT Heparin Anti-Xa Level ABG pH POC ABG pO2 ABG pO2 ABG HCO3 ABG O2 Saturation ABG Base Excess POC ABG pCO2 ABG Hemoglobin ABG Oxyhemoglobin ABG Sodium ABG Chloride ABG Glucose Oxyhemoglobin Carboxyhemoglobin Sodium Potassium Chloride Carbon Dioxide BUN Creatinine Glucose POC Glucose 164 H 167 H 153 H Lactic Acid Calcium Phosphorus Magnesium AST ALT Lactate Dehydrogenase Total Bilirubin Direct Bilirubin CK-MB (CK-2) C-Reactive Protein NT-Pro-B Natriuret Pep Total Protein Albumin Arterial Blood Glucose Arterial Blood Ionized Calcium Urine WBC (Auto) Urine Creatinine Digoxin 01/16/20 01/16/20 01/17/20 05:46 11:48 06:38 WBC RBC Hgb Hct MCHC RDW MCV MCH Lymph % (Auto) [place] % (Auto) [place] # Eos # Lymph # (Auto) [place] # (Auto) Eos # (Auto) Seg Neutrophils % Seg Neuts % (Manual) Baso # (Auto) Lymphocytes % (Manual) Monocytes % (Manual) Eosinophils % (Manual) Basophils % (Manual) Seg Neutrophils # Seg Neutrophils # Man Lymphocytes # (Manual) Monocytes # (Manual) Eosinophils # (Manual) Nucleated RBC % Basophils # (Manual) PT INR APTT Heparin Anti-Xa Level ABG pH POC ABG pO2 ABG pO2 ABG HCO3 ABG O2 Saturation ABG Base Excess POC ABG pCO2 ABG Hemoglobin ABG Oxyhemoglobin ABG Sodium ABG Chloride ABG Glucose Oxyhemoglobin Carboxyhemoglobin Sodium Potassium Chloride Carbon Dioxide BUN Creatinine Glucose POC Glucose 163 H 155 H 116 H Lactic Acid Calcium Phosphorus Magnesium AST ALT Lactate Dehydrogenase Total Bilirubin Direct Bilirubin CK-MB (CK-2) C-Reactive Protein NT-Pro-B Natriuret Pep Total Protein Albumin Arterial Blood Glucose Arterial Blood Ionized Calcium Urine WBC (Auto) Urine Creatinine Digoxin 01/17/20 01/17/20 01/18/20 11:36 17:43 00:12 WBC RBC Hgb Hct MCHC RDW MCV MCH Lymph % (Auto) [place] % (Auto) [place] # Eos # Lymph # (Auto) [place] # (Auto) Eos # (Auto) Seg Neutrophils % Seg Neuts % (Manual) Baso # (Auto) Lymphocytes % (Manual) Monocytes % (Manual) Eosinophils % (Manual) Basophils % (Manual) Seg Neutrophils # Seg Neutrophils # Man Lymphocytes # (Manual) Monocytes # (Manual) Eosinophils # (Manual) Nucleated RBC % Basophils # (Manual) PT INR APTT Heparin Anti-Xa Level ABG pH POC ABG pO2 ABG pO2 ABG HCO3 ABG O2 Saturation ABG Base Excess POC ABG pCO2 ABG Hemoglobin ABG Oxyhemoglobin ABG Sodium ABG Chloride ABG Glucose Oxyhemoglobin Carboxyhemoglobin Sodium Potassium Chloride Carbon Dioxide BUN Creatinine Glucose POC Glucose 110 H 134 H 108 H Lactic Acid Calcium Phosphorus Magnesium AST ALT Lactate Dehydrogenase Total Bilirubin Direct Bilirubin CK-MB (CK-2) C-Reactive Protein NT-Pro-B Natriuret Pep Total Protein Albumin Arterial Blood Glucose Arterial Blood Ionized Calcium Urine WBC (Auto) Urine Creatinine Digoxin 01/18/20 01/18/20 01/18/20 05:37 06:46 06:46 WBC RBC Hgb 10.1 L Hct 32.2 L MCHC 31 L RDW 18.1 H MCV 81 L MCH 25 L Lymph % (Auto) [place] % (Auto) [place] # Eos # Lymph # (Auto) [place] # (Auto) Eos # (Auto) Seg Neutrophils % 71.9 H Seg Neuts % (Manual) Baso # (Auto) Lymphocytes % (Manual) Monocytes % (Manual) Eosinophils % (Manual) Basophils % (Manual) Seg Neutrophils # Seg Neutrophils # Man Lymphocytes # (Manual) Monocytes # (Manual) Eosinophils # (Manual) Nucleated RBC % Basophils # (Manual) PT INR APTT Heparin Anti-Xa Level ABG pH POC ABG pO2 ABG pO2 ABG HCO3 ABG O2 Saturation ABG Base Excess POC ABG pCO2 ABG Hemoglobin ABG Oxyhemoglobin ABG Sodium ABG Chloride ABG Glucose Oxyhemoglobin Carboxyhemoglobin Sodium Potassium Chloride Carbon Dioxide BUN Creatinine 0.7 L Glucose 155 H POC Glucose 168 H Lactic Acid Calcium Phosphorus Magnesium AST ALT Lactate Dehydrogenase Total Bilirubin Direct Bilirubin CK-MB (CK-2) C-Reactive Protein NT-Pro-B Natriuret Pep Total Protein Albumin Arterial Blood Glucose Arterial Blood Ionized Calcium Urine WBC (Auto) Urine Creatinine Digoxin 01/18/20 01/18/20 01/18/20 12:05 17:14 23:28 WBC RBC Hgb Hct MCHC RDW MCV MCH Lymph % (Auto) [place] % (Auto) [place] # Eos # Lymph # (Auto) [place] # (Auto) Eos # (Auto) Seg Neutrophils % Seg Neuts % (Manual) Baso # (Auto) Lymphocytes % (Manual) Monocytes % (Manual) Eosinophils % (Manual) Basophils % (Manual) Seg Neutrophils # Seg Neutrophils # Man Lymphocytes # (Manual) Monocytes # (Manual) Eosinophils # (Manual) Nucleated RBC % Basophils # (Manual) PT INR APTT Heparin Anti-Xa Level ABG pH POC ABG pO2 ABG pO2 ABG HCO3 ABG O2 Saturation ABG Base Excess POC ABG pCO2 ABG Hemoglobin ABG Oxyhemoglobin ABG Sodium ABG Chloride ABG Glucose Oxyhemoglobin Carboxyhemoglobin Sodium Potassium Chloride Carbon Dioxide BUN Creatinine Glucose POC Glucose 128 H 126 H 128 H Lactic Acid Calcium Phosphorus Magnesium AST ALT Lactate Dehydrogenase Total Bilirubin Direct Bilirubin CK-MB (CK-2) C-Reactive Protein NT-Pro-B Natriuret Pep Total Protein Albumin Arterial Blood Glucose Arterial Blood Ionized Calcium Urine WBC (Auto) Urine Creatinine Digoxin 01/19/20 01/19/2020 05:39 12:33 17:36 WBC RBC Hgb Hct MCHC RDW MCV MCH Lymph % (Auto) [place] % (Auto) [place] # Eos # Lymph # (Auto) [place] # (Auto) Eos # (Auto) Seg Neutrophils % Seg Neuts % (Manual) Baso # (Auto) Lymphocytes % (Manual) Monocytes % (Manual) Eosinophils % (Manual) Basophils % (Manual) Seg Neutrophils # Seg Neutrophils # Man Lymphocytes # (Manual) Monocytes # (Manual) Eosinophils # (Manual) Nucleated RBC % Basophils # (Manual) PT INR APTT Heparin Anti-Xa Level ABG pH POC ABG pO2 ABG pO2 ABG HCO3 ABG O2 Saturation ABG Base Excess POC ABG pCO2 ABG Hemoglobin ABG Oxyhemoglobin ABG Sodium ABG Chloride ABG Glucose Oxyhemoglobin Carboxyhemoglobin Sodium Potassium Chloride Carbon Dioxide BUN Creatinine Glucose POC Glucose 164 H 171 H 152 H Lactic Acid Calcium Phosphorus Magnesium AST ALT Lactate Dehydrogenase Total Bilirubin Direct Bilirubin CK-MB (CK-2) C-Reactive Protein NT-Pro-B Natriuret Pep Total Protein Albumin Arterial Blood Glucose Arterial Blood Ionized Calcium Urine WBC (Auto) Urine Creatinine Digoxin 01/20/20 01/20/20 01/20/20 00:12 05:20 05:35 WBC RBC Hgb 9.2 L Hct 29.4 L MCHC 31 L RDW 17.9 H MCV 81 L MCH 25 L Lymph % (Auto) [place] % (Auto) [place] # Eos # Lymph # (Auto) [place] # (Auto) Eos # (Auto) Seg Neutrophils % Seg Neuts % (Manual) Baso # (Auto) Lymphocytes % (Manual) Monocytes % (Manual) Eosinophils % (Manual) Basophils % (Manual) Seg Neutrophils # Seg Neutrophils # Man Lymphocytes # (Manual) Monocytes # (Manual) Eosinophils # (Manual) Nucleated RBC % Basophils # (Manual) PT INR APTT Heparin Anti-Xa Level ABG pH POC ABG pO2 ABG pO2 ABG HCO3 ABG O2 Saturation ABG Base Excess POC ABG pCO2 ABG Hemoglobin ABG Oxyhemoglobin ABG Sodium ABG Chloride ABG Glucose Oxyhemoglobin Carboxyhemoglobin Sodium Potassium Chloride Carbon Dioxide BUN Creatinine Glucose POC Glucose 120 H 136 H Lactic Acid Calcium Phosphorus Magnesium AST ALT Lactate Dehydrogenase Total Bilirubin Direct Bilirubin CK-MB (CK-2) C-Reactive Protein NT-Pro-B Natriuret Pep Total Protein Albumin Arterial Blood Glucose Arterial Blood Ionized Calcium Urine WBC (Auto) Urine Creatinine Digoxin 01/20/20 01/20/20 01/20/20 05:40 11:58 14:55 WBC RBC Hgb 9.0 L Hct 28.3 L MCHC RDW MCV MCH Lymph % (Auto) [place] % (Auto) [place] # Eos # Lymph # (Auto) [place] # (Auto) Eos # (Auto) Seg Neutrophils % Seg Neuts % (Manual) Baso # (Auto) Lymphocytes % (Manual) Monocytes % (Manual) Eosinophils % (Manual) Basophils % (Manual) Seg Neutrophils # Seg Neutrophils # Man Lymphocytes # (Manual) Monocytes # (Manual) Eosinophils # (Manual) Nucleated RBC % Basophils # (Manual) PT INR APTT Heparin Anti-Xa Level ABG pH POC ABG pO2 ABG pO2 ABG HCO3 ABG O2 Saturation ABG Base Excess POC ABG pCO2 ABG Hemoglobin ABG Oxyhemoglobin ABG Sodium ABG Chloride ABG Glucose Oxyhemoglobin Carboxyhemoglobin Sodium Potassium Chloride Carbon Dioxide 32 H BUN 22 H Creatinine 0.7 L Glucose 128 H POC Glucose 152 H Lactic Acid Calcium Phosphorus Magnesium AST ALT Lactate Dehydrogenase Total Bilirubin Direct Bilirubin CK-MB (CK-2) C-Reactive Protein NT-Pro-B Natriuret Pep Total Protein Albumin Arterial Blood Glucose Arterial Blood Ionized Calcium Urine WBC (Auto) Urine Creatinine Digoxin 01/20/20 01/20/20 01/20/20 14:55 18:14 21:35 WBC RBC Hgb Hct MCHC RDW MCV MCH Lymph % (Auto) [place] % (Auto) [place] # Eos # Lymph # (Auto) [place] # (Auto) Eos # (Auto) Seg Neutrophils % Seg Neuts % (Manual) Baso # (Auto) Lymphocytes % (Manual) Monocytes % (Manual) Eosinophils % (Manual) Basophils % (Manual) Seg Neutrophils # Seg Neutrophils # Man Lymphocytes # (Manual) Monocytes # (Manual) Eosinophils # (Manual) Nucleated RBC % Basophils # (Manual) PT 20.4 H INR 1.72 H APTT 40.6 H Heparin Anti-Xa Level > 2.00 H ABG pH POC ABG pO2 ABG pO2 ABG HCO3 ABG O2 Saturation ABG Base Excess POC ABG pCO2 ABG Hemoglobin ABG Oxyhemoglobin ABG Sodium ABG Chloride ABG Glucose Oxyhemoglobin Carboxyhemoglobin Sodium Potassium Chloride Carbon Dioxide BUN Creatinine Glucose POC Glucose 150 H Lactic Acid Calcium Phosphorus Magnesium AST ALT Lactate Dehydrogenase Total Bilirubin Direct Bilirubin CK-MB (CK-2) C-Reactive Protein NT-Pro-B Natriuret Pep Total Protein Albumin Arterial Blood Glucose Arterial Blood Ionized Calcium Urine WBC (Auto) Urine Creatinine Digoxin 01/21/20 01/21/20 01/21/20 00:30 05:47 05:59 WBC RBC Hgb Hct MCHC RDW MCV MCH Lymph % (Auto) [place] % (Auto) [place] # Eos # Lymph # (Auto) [place] # (Auto) Eos # (Auto) Seg Neutrophils % Seg Neuts % (Manual) Baso # (Auto) Lymphocytes % (Manual) Monocytes % (Manual) Eosinophils % (Manual) Basophils % (Manual) Seg Neutrophils # Seg Neutrophils # Man Lymphocytes # (Manual) Monocytes # (Manual) Eosinophils # (Manual) Nucleated RBC % Basophils # (Manual) PT INR APTT Heparin Anti-Xa Level 1.93 H ABG pH POC ABG pO2 ABG pO2 ABG HCO3 ABG O2 Saturation ABG Base Excess POC ABG pCO2 ABG Hemoglobin ABG Oxyhemoglobin ABG Sodium ABG Chloride ABG Glucose Oxyhemoglobin Carboxyhemoglobin Sodium Potassium Chloride Carbon Dioxide BUN Creatinine Glucose POC Glucose 126 H 148 H Lactic Acid Calcium Phosphorus Magnesium AST ALT Lactate Dehydrogenase Total Bilirubin Direct Bilirubin CK-MB (CK-2) C-Reactive Protein NT-Pro-B Natriuret Pep Total Protein Albumin Arterial Blood Glucose Arterial Blood Ionized Calcium Urine WBC (Auto) Urine Creatinine Digoxin 01/21/20 01/21/20 01/21/20 12:32 18:20 23:54 WBC RBC Hgb Hct MCHC RDW MCV MCH Lymph % (Auto) [place] % (Auto) [place] # Eos # Lymph # (Auto) [place] # (Auto) Eos # (Auto) Seg Neutrophils % Seg Neuts % (Manual) Baso # (Auto) Lymphocytes % (Manual) Monocytes % (Manual) Eosinophils % (Manual) Basophils % (Manual) Seg Neutrophils # Seg Neutrophils # Man Lymphocytes # (Manual) Monocytes # (Manual) Eosinophils # (Manual) Nucleated RBC % Basophils # (Manual) PT INR APTT Heparin Anti-Xa Level 1.28 H ABG pH POC ABG pO2 ABG pO2 ABG HCO3 ABG O2 Saturation ABG Base Excess POC ABG pCO2 ABG Hemoglobin ABG Oxyhemoglobin ABG Sodium ABG Chloride ABG Glucose Oxyhemoglobin Carboxyhemoglobin Sodium Potassium Chloride Carbon Dioxide BUN Creatinine Glucose POC Glucose 112 H 146 H Lactic Acid Calcium Phosphorus Magnesium AST ALT Lactate Dehydrogenase Total Bilirubin Direct Bilirubin CK-MB (CK-2) C-Reactive Protein NT-Pro-B Natriuret Pep Total Protein Albumin Arterial Blood Glucose Arterial Blood Ionized Calcium Urine WBC (Auto) Urine Creatinine Digoxin 01/22/20 01/22/20 01/22/20 04:45 04:45 05:48 WBC RBC Hgb 9.3 L Hct 29.0 L MCHC RDW MCV MCH Lymph % (Auto) [place] % (Auto) [place] # Eos # Lymph # (Auto) [place] # (Auto) Eos # (Auto) Seg Neutrophils % Seg Neuts % (Manual) Baso # (Auto) Lymphocytes % (Manual) Monocytes % (Manual) Eosinophils % (Manual) Basophils % (Manual) Seg Neutrophils # Seg Neutrophils # Man Lymphocytes # (Manual) Monocytes # (Manual) Eosinophils # (Manual) Nucleated RBC % Basophils # (Manual) PT INR APTT Heparin Anti-Xa Level 1.34 H ABG pH POC ABG pO2 ABG pO2 ABG HCO3 ABG O2 Saturation ABG Base Excess POC ABG pCO2 ABG Hemoglobin ABG Oxyhemoglobin ABG Sodium ABG Chloride ABG Glucose Oxyhemoglobin Carboxyhemoglobin Sodium Potassium Chloride Carbon Dioxide BUN Creatinine Glucose POC Glucose 142 H Lactic Acid Calcium Phosphorus Magnesium AST ALT Lactate Dehydrogenase Total Bilirubin Direct Bilirubin CK-MB (CK-2) C-Reactive Protein NT-Pro-B Natriuret Pep Total Protein Albumin Arterial Blood Glucose Arterial Blood Ionized Calcium Urine WBC (Auto) Urine Creatinine Digoxin 01/22/20 01/22/20 01/22/20 08:09 08:22 09:58 WBC RBC Hgb Hct MCHC RDW MCV MCH Lymph % (Auto) [place] % (Auto) [place] # Eos # Lymph # (Auto) [place] # (Auto) Eos # (Auto) Seg Neutrophils % Seg Neuts % (Manual) Baso # (Auto) Lymphocytes % (Manual) Monocytes % (Manual) Eosinophils % (Manual) Basophils % (Manual) Seg Neutrophils # Seg Neutrophils # Man Lymphocytes # (Manual) Monocytes # (Manual) Eosinophils # (Manual) Nucleated RBC % Basophils # (Manual) PT 16.9 H INR 1.34 H APTT Heparin Anti-Xa Level ABG pH POC ABG pO2 ABG pO2 ABG HCO3 ABG O2 Saturation ABG Base Excess POC ABG pCO2 ABG Hemoglobin ABG Oxyhemoglobin ABG Sodium ABG Chloride ABG Glucose Oxyhemoglobin Carboxyhemoglobin Sodium Potassium Chloride 97.8 L Carbon Dioxide BUN 29 H Creatinine Glucose 128 H POC Glucose 131 H Lactic Acid Calcium Phosphorus Magnesium AST ALT Lactate Dehydrogenase Total Bilirubin Direct Bilirubin CK-MB (CK-2) C-Reactive Protein NT-Pro-B Natriuret Pep Total Protein Albumin Arterial Blood Glucose Arterial Blood Ionized Calcium Urine WBC (Auto) Urine Creatinine Digoxin 01/22/20 01/22/20 01/22/20 12:44 16:13 18:18 WBC RBC Hgb Hct MCHC RDW MCV MCH Lymph % (Auto) [place] % (Auto) [place] # Eos # Lymph # (Auto) [place] # (Auto) Eos # (Auto) Seg Neutrophils % Seg Neuts % (Manual) Baso # (Auto) Lymphocytes % (Manual) Monocytes % (Manual) Eosinophils % (Manual) Basophils % (Manual) Seg Neutrophils # Seg Neutrophils # Man Lymphocytes # (Manual) Monocytes # (Manual) Eosinophils # (Manual) Nucleated RBC % Basophils # (Manual) PT INR APTT Heparin Anti-Xa Level ABG pH POC ABG pO2 ABG pO2 ABG HCO3 ABG O2 Saturation ABG Base Excess POC ABG pCO2 ABG Hemoglobin ABG Oxyhemoglobin ABG Sodium ABG Chloride ABG Glucose Oxyhemoglobin Carboxyhemoglobin Sodium Potassium Chloride Carbon Dioxide BUN Creatinine Glucose POC Glucose 156 H 133 H 155 H Lactic Acid Calcium Phosphorus Magnesium AST ALT Lactate Dehydrogenase Total Bilirubin Direct Bilirubin CK-MB (CK-2) C-Reactive Protein NT-Pro-B Natriuret Pep Total Protein Albumin Arterial Blood Glucose Arterial Blood Ionized Calcium Urine WBC (Auto) Urine Creatinine Digoxin 01/22/20 01/23/20 01/23/20 23:22 05:37 12:59 WBC RBC Hgb Hct MCHC RDW MCV MCH Lymph % (Auto) [place] % (Auto) [place] # Eos # Lymph # (Auto) [place] # (Auto) Eos # (Auto) Seg Neutrophils % Seg Neuts % (Manual) Baso # (Auto) Lymphocytes % (Manual) Monocytes % (Manual) Eosinophils % (Manual) Basophils % (Manual) Seg Neutrophils # Seg Neutrophils # Man Lymphocytes # (Manual) Monocytes # (Manual) Eosinophils # (Manual) Nucleated RBC % Basophils # (Manual) PT INR APTT Heparin Anti-Xa Level ABG pH POC ABG pO2 ABG pO2 ABG HCO3 ABG O2 Saturation ABG Base Excess POC ABG pCO2 ABG Hemoglobin ABG Oxyhemoglobin ABG Sodium ABG Chloride ABG Glucose Oxyhemoglobin Carboxyhemoglobin Sodium Potassium Chloride Carbon Dioxide BUN Creatinine Glucose POC Glucose 148 H 163 H 175 H Lactic Acid Calcium Phosphorus Magnesium AST ALT Lactate Dehydrogenase Total Bilirubin Direct Bilirubin CK-MB (CK-2) C-Reactive Protein NT-Pro-B Natriuret Pep Total Protein Albumin Arterial Blood Glucose Arterial Blood Ionized Calcium Urine WBC (Auto) Urine Creatinine Digoxin 01/23/20 01/23/20 01/24/20 17:28 23:56 04:30 WBC RBC 3.46 L Hgb 8.8 L Hct 27.8 L MCHC RDW 18.2 H MCV 81 L MCH 25 L Lymph % (Auto) [place] % (Auto) 7.8 H [place] # Eos # Lymph # (Auto) [place] # (Auto) Eos # (Auto) Seg Neutrophils % Seg Neuts % (Manual) Baso # (Auto) Lymphocytes % (Manual) Monocytes % (Manual) Eosinophils % (Manual) Basophils % (Manual) Seg Neutrophils # Seg Neutrophils # Man Lymphocytes # (Manual) Monocytes # (Manual) Eosinophils # (Manual) Nucleated RBC % Basophils # (Manual) PT INR APTT Heparin Anti-Xa Level ABG pH POC ABG pO2 ABG pO2 ABG HCO3 ABG O2 Saturation ABG Base Excess POC ABG pCO2 ABG Hemoglobin ABG Oxyhemoglobin ABG Sodium ABG Chloride ABG Glucose Oxyhemoglobin Carboxyhemoglobin Sodium Potassium Chloride Carbon Dioxide BUN Creatinine Glucose POC Glucose 165 H 177 H Lactic Acid Calcium Phosphorus Magnesium AST ALT Lactate Dehydrogenase Total Bilirubin Direct Bilirubin CK-MB (CK-2) C-Reactive Protein NT-Pro-B Natriuret Pep Total Protein Albumin Arterial Blood Glucose Arterial Blood Ionized Calcium Urine WBC (Auto) Urine Creatinine Digoxin 01/24/20 01/24/20 01/24/20 04:30 07:18 12:06 WBC RBC Hgb Hct MCHC RDW MCV MCH Lymph % (Auto) [place] % (Auto) [place] # Eos # Lymph # (Auto) [place] # (Auto) Eos # (Auto) Seg Neutrophils % Seg Neuts % (Manual) Baso # (Auto) Lymphocytes % (Manual) Monocytes % (Manual) Eosinophils % (Manual) Basophils % (Manual) Seg Neutrophils # Seg Neutrophils # Man Lymphocytes # (Manual) Monocytes # (Manual) Eosinophils # (Manual) Nucleated RBC % Basophils # (Manual) PT INR APTT Heparin Anti-Xa Level ABG pH POC ABG pO2 ABG pO2 ABG HCO3 ABG O2 Saturation ABG Base Excess POC ABG pCO2 ABG Hemoglobin ABG Oxyhemoglobin ABG Sodium ABG Chloride ABG Glucose Oxyhemoglobin Carboxyhemoglobin Sodium Potassium Chloride 97.9 L Carbon Dioxide BUN 31 H Creatinine Glucose 146 H POC Glucose 151 H 133 H Lactic Acid Calcium Phosphorus Magnesium AST ALT Lactate Dehydrogenase Total Bilirubin Direct Bilirubin CK-MB (CK-2) C-Reactive Protein NT-Pro-B Natriuret Pep Total Protein Albumin Arterial Blood Glucose Arterial Blood Ionized Calcium Urine WBC (Auto) Urine Creatinine Digoxin 01/24/20 01/25/20 01/25/20 17:36 00:08 04:25 WBC RBC 3.50 L Hgb 8.7 L Hct 27.9 L MCHC 31 L RDW 18.2 H MCV 80 L MCH 25 L Lymph % (Auto) [place] % (Auto) 8.5 H [place] # Eos # Lymph # (Auto) [place] # (Auto) Eos # (Auto) Seg Neutrophils % Seg Neuts % (Manual) Baso # (Auto) Lymphocytes % (Manual) Monocytes % (Manual) Eosinophils % (Manual) Basophils % (Manual) Seg Neutrophils # Seg Neutrophils # Man Lymphocytes # (Manual) Monocytes # (Manual) Eosinophils # (Manual) Nucleated RBC % Basophils # (Manual) PT INR APTT Heparin Anti-Xa Level ABG pH POC ABG pO2 ABG pO2 ABG HCO3 ABG O2 Saturation ABG Base Excess POC ABG pCO2 ABG Hemoglobin ABG Oxyhemoglobin ABG Sodium ABG Chloride ABG Glucose Oxyhemoglobin Carboxyhemoglobin Sodium Potassium Chloride Carbon Dioxide BUN Creatinine Glucose POC Glucose 133 H 129 H Lactic Acid Calcium Phosphorus Magnesium AST ALT Lactate Dehydrogenase Total Bilirubin Direct Bilirubin CK-MB (CK-2) C-Reactive Protein NT-Pro-B Natriuret Pep Total Protein Albumin Arterial Blood Glucose Arterial Blood Ionized Calcium Urine WBC (Auto) Urine Creatinine Digoxin 01/25/20 01/25/20 01/25/20 04:25 05:38 11:52 WBC RBC Hgb Hct MCHC RDW MCV MCH Lymph % (Auto) [place] % (Auto) [place] # Eos # Lymph # (Auto) [place] # (Auto) Eos # (Auto) Seg Neutrophils % Seg Neuts % (Manual) Baso # (Auto) Lymphocytes % (Manual) Monocytes % (Manual) Eosinophils % (Manual) Basophils % (Manual) Seg Neutrophils # Seg Neutrophils # Man Lymphocytes # (Manual) Monocytes # (Manual) Eosinophils # (Manual) Nucleated RBC % Basophils # (Manual) PT INR APTT Heparin Anti-Xa Level ABG pH POC ABG pO2 ABG pO2 ABG HCO3 ABG O2 Saturation ABG Base Excess POC ABG pCO2 ABG Hemoglobin ABG Oxyhemoglobin ABG Sodium ABG Chloride ABG Glucose Oxyhemoglobin Carboxyhemoglobin Sodium Potassium Chloride Carbon Dioxide BUN 30 H Creatinine Glucose 134 H POC Glucose 129 H 134 H Lactic Acid Calcium Phosphorus Magnesium AST ALT Lactate Dehydrogenase Total Bilirubin Direct Bilirubin CK-MB (CK-2) C-Reactive Protein NT-Pro-B Natriuret Pep Total Protein Albumin Arterial Blood Glucose Arterial Blood Ionized Calcium Urine WBC (Auto) Urine Creatinine Digoxin 01/25/20 01/25/20 01/26/20 17:13 21:02 00:59 WBC RBC Hgb Hct MCHC RDW MCV MCH Lymph % (Auto) [place] % (Auto) [place] # Eos # Lymph # (Auto) [place] # (Auto) Eos # (Auto) Seg Neutrophils % Seg Neuts % (Manual) Baso # (Auto) Lymphocytes % (Manual) Monocytes % (Manual) Eosinophils % (Manual) Basophils % (Manual) Seg Neutrophils # Seg Neutrophils # Man Lymphocytes # (Manual) Monocytes # (Manual) Eosinophils # (Manual) Nucleated RBC % Basophils # (Manual) PT INR APTT Heparin Anti-Xa Level ABG pH POC ABG pO2 ABG pO2 57.5 L ABG HCO3 31.7 H ABG O2 Saturation 90.3 L ABG Base Excess 6.6 H POC ABG pCO2 ABG Hemoglobin 13.0 L ABG Oxyhemoglobin ABG Sodium ABG Chloride ABG Glucose Oxyhemoglobin 87.5 L Carboxyhemoglobin Sodium Potassium Chloride Carbon Dioxide BUN Creatinine Glucose POC Glucose 124 H 196 H Lactic Acid Calcium Phosphorus Magnesium AST ALT Lactate Dehydrogenase Total Bilirubin Direct Bilirubin CK-MB (CK-2) C-Reactive Protein NT-Pro-B Natriuret Pep Total Protein Albumin Arterial Blood Glucose Arterial Blood Ionized Calcium Urine WBC (Auto) Urine Creatinine Digoxin 01/26/20 01/26/20 01/26/20 03:20 05:46 12:46 WBC RBC Hgb 9.2 L Hct 29.4 L MCHC RDW MCV MCH Lymph % (Auto) [place] % (Auto) [place] # Eos # Lymph # (Auto) [place] # (Auto) Eos # (Auto) Seg Neutrophils % Seg Neuts % (Manual) Baso # (Auto) Lymphocytes % (Manual) Monocytes % (Manual) Eosinophils % (Manual) Basophils % (Manual) Seg Neutrophils # Seg Neutrophils # Man Lymphocytes # (Manual) Monocytes # (Manual) Eosinophils # (Manual) Nucleated RBC % Basophils # (Manual) PT INR APTT Heparin Anti-Xa Level ABG pH POC ABG pO2 ABG pO2 ABG HCO3 ABG O2 Saturation ABG Base Excess POC ABG pCO2 ABG Hemoglobin ABG Oxyhemoglobin ABG Sodium ABG Chloride ABG Glucose Oxyhemoglobin Carboxyhemoglobin Sodium Potassium Chloride Carbon Dioxide BUN Creatinine Glucose POC Glucose 141 H 122 H Lactic Acid Calcium Phosphorus Magnesium AST ALT Lactate Dehydrogenase Total Bilirubin Direct Bilirubin CK-MB (CK-2) C-Reactive Protein NT-Pro-B Natriuret Pep Total Protein Albumin Arterial Blood Glucose Arterial Blood Ionized Calcium Urine WBC (Auto) Urine Creatinine Digoxin 01/26/20 01/26/20 01/27/20 18:03 23:55 04:47 WBC RBC Hgb Hct MCHC RDW MCV MCH Lymph % (Auto) [place] % (Auto) [place] # Eos # Lymph # (Auto) [place] # (Auto) Eos # (Auto) Seg Neutrophils % Seg Neuts % (Manual) Baso # (Auto) Lymphocytes % (Manual) Monocytes % (Manual) Eosinophils % (Manual) Basophils % (Manual) Seg Neutrophils # Seg Neutrophils # Man Lymphocytes # (Manual) Monocytes # (Manual) Eosinophils # (Manual) Nucleated RBC % Basophils # (Manual) PT INR APTT Heparin Anti-Xa Level ABG pH POC ABG pO2 ABG pO2 ABG HCO3 ABG O2 Saturation ABG Base Excess POC ABG pCO2 ABG Hemoglobin ABG Oxyhemoglobin ABG Sodium ABG Chloride ABG Glucose Oxyhemoglobin Carboxyhemoglobin Sodium Potassium Chloride Carbon Dioxide BUN 30 H Creatinine 0.7 L Glucose 135 H POC Glucose 142 H 159 H Lactic Acid Calcium Phosphorus Magnesium AST ALT Lactate Dehydrogenase Total Bilirubin Direct Bilirubin CK-MB (CK-2) C-Reactive Protein NT-Pro-B Natriuret Pep Total Protein Albumin Arterial Blood Glucose Arterial Blood Ionized Calcium Urine WBC (Auto) Urine Creatinine Digoxin 11/04/20 11/04/20 11/04/20 05:43 12:06 17:16 WBC RBC Hgb Hct MCHC RDW MCV MCH Lymph % (Auto) [place] % (Auto) [place] # Eos # Lymph # (Auto) [place] # (Auto) Eos # (Auto) Seg Neutrophils % Seg Neuts % (Manual) Baso # (Auto) Lymphocytes % (Manual) Monocytes % (Manual) Eosinophils % (Manual) Basophils % (Manual) Seg Neutrophils # Seg Neutrophils # Man Lymphocytes # (Manual) Monocytes # (Manual) Eosinophils # (Manual) Nucleated RBC % Basophils # (Manual) PT INR APTT Heparin Anti-Xa Level ABG pH POC ABG pO2 ABG pO2 ABG HCO3 ABG O2 Saturation ABG Base Excess POC ABG pCO2 ABG Hemoglobin ABG Oxyhemoglobin ABG Sodium ABG Chloride ABG Glucose Oxyhemoglobin Carboxyhemoglobin Sodium Potassium Chloride Carbon Dioxide BUN Creatinine Glucose POC Glucose 143 H 142 H 128 H Lactic Acid Calcium Phosphorus Magnesium AST ALT Lactate Dehydrogenase Total Bilirubin Direct Bilirubin CK-MB (CK-2) C-Reactive Protein NT-Pro-B Natriuret Pep Total Protein Albumin Arterial Blood Glucose Arterial Blood Ionized Calcium Urine WBC (Auto) Urine Creatinine Digoxin 01/27/20 01/28/20 01/28/20 23:55 04:37 05:55 WBC RBC Hgb 9.4 L Hct 29.9 L MCHC RDW MCV MCH Lymph % (Auto) [place] % (Auto) [place] # Eos # Lymph # (Auto) [place] # (Auto) Eos # (Auto) Seg Neutrophils % Seg Neuts % (Manual) Baso # (Auto) Lymphocytes % (Manual) Monocytes % (Manual) Eosinophils % (Manual) Basophils % (Manual) Seg Neutrophils # Seg Neutrophils # Man Lymphocytes # (Manual) Monocytes # (Manual) Eosinophils # (Manual) Nucleated RBC % Basophils # (Manual) PT INR APTT Heparin Anti-Xa Level ABG pH POC ABG pO2 ABG pO2 ABG HCO3 ABG O2 Saturation ABG Base Excess POC ABG pCO2 ABG Hemoglobin ABG Oxyhemoglobin ABG Sodium ABG Chloride ABG Glucose Oxyhemoglobin Carboxyhemoglobin Sodium Potassium Chloride Carbon Dioxide BUN Creatinine Glucose POC Glucose 166 H 169 H Lactic Acid Calcium Phosphorus Magnesium AST ALT Lactate Dehydrogenase Total Bilirubin Direct Bilirubin CK-MB (CK-2) C-Reactive Protein NT-Pro-B Natriuret Pep Total Protein Albumin Arterial Blood Glucose Arterial Blood Ionized Calcium Urine WBC (Auto) Urine Creatinine Digoxin 01/28/20 01/28/20 01/28/20 11:58 17:26 23:46 WBC RBC Hgb Hct MCHC RDW MCV MCH Lymph % (Auto) [place] % (Auto) [place] # Eos # Lymph # (Auto) [place] # (Auto) Eos # (Auto) Seg Neutrophils % Seg Neuts % (Manual) Baso # (Auto) Lymphocytes % (Manual) Monocytes % (Manual) Eosinophils % (Manual) Basophils % (Manual) Seg Neutrophils # Seg Neutrophils # Man Lymphocytes # (Manual) Monocytes # (Manual) Eosinophils # (Manual) Nucleated RBC % Basophils # (Manual) PT INR APTT Heparin Anti-Xa Level ABG pH POC ABG pO2 ABG pO2 ABG HCO3 ABG O2 Saturation ABG Base Excess POC ABG pCO2 ABG Hemoglobin ABG Oxyhemoglobin ABG Sodium ABG Chloride ABG Glucose Oxyhemoglobin Carboxyhemoglobin Sodium Potassium Chloride Carbon Dioxide BUN Creatinine Glucose POC Glucose 130 H 126 H 150 H Lactic Acid Calcium Phosphorus Magnesium AST ALT Lactate Dehydrogenase Total Bilirubin Direct Bilirubin CK-MB (CK-2) C-Reactive Protein NT-Pro-B Natriuret Pep Total Protein Albumin Arterial Blood Glucose Arterial Blood Ionized Calcium Urine WBC (Auto) Urine Creatinine Digoxin 01/29/20 01/29/20 01/29/20 04:55 06:00 12:28 WBC RBC Hgb Hct MCHC RDW MCV MCH Lymph % (Auto) [place] % (Auto) [place] # Eos # Lymph # (Auto) [place] # (Auto) Eos # (Auto) Seg Neutrophils % Seg Neuts % (Manual) Baso # (Auto) Lymphocytes % (Manual) Monocytes % (Manual) Eosinophils % (Manual) Basophils % (Manual) Seg Neutrophils # Seg Neutrophils # Man Lymphocytes # (Manual) Monocytes # (Manual) Eosinophils # (Manual) Nucleated RBC % Basophils # (Manual) PT INR APTT Heparin Anti-Xa Level ABG pH POC ABG pO2 ABG pO2 ABG HCO3 ABG O2 Saturation ABG Base Excess POC ABG pCO2 ABG Hemoglobin ABG Oxyhemoglobin ABG Sodium ABG Chloride ABG Glucose Oxyhemoglobin Carboxyhemoglobin Sodium Potassium Chloride Carbon Dioxide 34 H BUN Creatinine 0.6 L Glucose 152 H POC Glucose 157 H 156 H Lactic Acid Calcium Phosphorus Magnesium AST ALT Lactate Dehydrogenase Total Bilirubin Direct Bilirubin CK-MB (CK-2) C-Reactive Protein NT-Pro-B Natriuret Pep Total Protein Albumin Arterial Blood Glucose Arterial Blood Ionized Calcium Urine WBC (Auto) Urine Creatinine Digoxin 01/29/20 01/30/20 01/30/20 19:06 00:29 05:39 WBC RBC Hgb Hct MCHC RDW MCV MCH Lymph % (Auto) [place] % (Auto) [place] # Eos # Lymph # (Auto) [place] # (Auto) Eos # (Auto) Seg Neutrophils % Seg Neuts % (Manual) Baso # (Auto) Lymphocytes % (Manual) Monocytes % (Manual) Eosinophils % (Manual) Basophils % (Manual) Seg Neutrophils # Seg Neutrophils # Man Lymphocytes # (Manual) Monocytes # (Manual) Eosinophils # (Manual) Nucleated RBC % Basophils # (Manual) PT INR APTT Heparin Anti-Xa Level ABG pH POC ABG pO2 ABG pO2 ABG HCO3 ABG O2 Saturation ABG Base Excess POC ABG pCO2 ABG Hemoglobin ABG Oxyhemoglobin ABG Sodium ABG Chloride ABG Glucose Oxyhemoglobin Carboxyhemoglobin Sodium Potassium Chloride Carbon Dioxide BUN Creatinine Glucose POC Glucose 152 H 132 H 159 H Lactic Acid Calcium Phosphorus Magnesium AST ALT Lactate Dehydrogenase Total Bilirubin Direct Bilirubin CK-MB (CK-2) C-Reactive Protein NT-Pro-B Natriuret Pep Total Protein Albumin Arterial Blood Glucose Arterial Blood Ionized Calcium Urine WBC (Auto) Urine Creatinine Digoxin 01/30/20 01/30/20 01/30/20 12:27 17:42 23:28 WBC RBC Hgb Hct MCHC RDW MCV MCH Lymph % (Auto) [place] % (Auto) [place] # Eos # Lymph # (Auto) [place] # (Auto) Eos # (Auto) Seg Neutrophils % Seg Neuts % (Manual) Baso # (Auto) Lymphocytes % (Manual) Monocytes % (Manual) Eosinophils % (Manual) Basophils % (Manual) Seg Neutrophils # Seg Neutrophils # Man Lymphocytes # (Manual) Monocytes # (Manual) Eosinophils # (Manual) Nucleated RBC % Basophils # (Manual) PT INR APTT Heparin Anti-Xa Level ABG pH POC ABG pO2 ABG pO2 ABG HCO3 ABG O2 Saturation ABG Base Excess POC ABG pCO2 ABG Hemoglobin ABG Oxyhemoglobin ABG Sodium ABG Chloride ABG Glucose Oxyhemoglobin Carboxyhemoglobin Sodium Potassium Chloride Carbon Dioxide BUN Creatinine Glucose POC Glucose 151 H 144 H 164 H Lactic Acid Calcium Phosphorus Magnesium AST ALT Lactate Dehydrogenase Total Bilirubin Direct Bilirubin CK-MB (CK-2) C-Reactive Protein NT-Pro-B Natriuret Pep Total Protein Albumin Arterial Blood Glucose Arterial Blood Ionized Calcium Urine WBC (Auto) Urine Creatinine Digoxin 01/31/20 01/31/20 01/31/20 05:51 11:51 18:06 WBC RBC Hgb Hct MCHC RDW MCV MCH Lymph % (Auto) [place] % (Auto) [place] # Eos # Lymph # (Auto) [place] # (Auto) Eos # (Auto) Seg Neutrophils % Seg Neuts % (Manual) Baso # (Auto) Lymphocytes % (Manual) Monocytes % (Manual) Eosinophils % (Manual) Basophils % (Manual) Seg Neutrophils # Seg Neutrophils # Man Lymphocytes # (Manual) Monocytes # (Manual) Eosinophils # (Manual) Nucleated RBC % Basophils # (Manual) PT INR APTT Heparin Anti-Xa Level ABG pH POC ABG pO2 ABG pO2 ABG HCO3 ABG O2 Saturation ABG Base Excess POC ABG pCO2 ABG Hemoglobin ABG Oxyhemoglobin ABG Sodium ABG Chloride ABG Glucose Oxyhemoglobin Carboxyhemoglobin Sodium Potassium Chloride Carbon Dioxide BUN Creatinine Glucose POC Glucose 131 H 167 H 210 H Lactic Acid Calcium Phosphorus Magnesium AST ALT Lactate Dehydrogenase Total Bilirubin Direct Bilirubin CK-MB (CK-2) C-Reactive Protein NT-Pro-B Natriuret Pep Total Protein Albumin Arterial Blood Glucose Arterial Blood Ionized Calcium Urine WBC (Auto) Urine Creatinine Digoxin 01/31/20 01/31/20 02/01/20 19:24 Unknown 00:34 WBC RBC Hgb Hct MCHC RDW MCV MCH Lymph % (Auto) [place] % (Auto) [place] # Eos # Lymph # (Auto) [place] # (Auto) Eos # (Auto) Seg Neutrophils % Seg Neuts % (Manual) Baso # (Auto) Lymphocytes % (Manual) Monocytes % (Manual) Eosinophils % (Manual) Basophils % (Manual) Seg Neutrophils # Seg Neutrophils # Man Lymphocytes # (Manual) Monocytes # (Manual) Eosinophils # (Manual) Nucleated RBC % Basophils # (Manual) PT INR APTT Heparin Anti-Xa Level ABG pH POC ABG pO2 ABG pO2 ABG HCO3 ABG O2 Saturation ABG Base Excess POC ABG pCO2 ABG Hemoglobin ABG Oxyhemoglobin ABG Sodium ABG Chloride ABG Glucose Oxyhemoglobin Carboxyhemoglobin Sodium Potassium Chloride 95.3 L Carbon Dioxide 33 H BUN 36 H Creatinine Glucose 187 H POC Glucose 116 H Lactic Acid Calcium Phosphorus Magnesium AST ALT Lactate Dehydrogenase Total Bilirubin Direct Bilirubin CK-MB (CK-2) C-Reactive Protein NT-Pro-B Natriuret Pep Total Protein Albumin Arterial Blood Glucose Arterial Blood Ionized Calcium Urine WBC (Auto) Urine Creatinine 57.4 H Digoxin 02/01/20 02/01/20 02/01/20 05:24 10:40 12:29 WBC RBC Hgb Hct MCHC RDW MCV MCH Lymph % (Auto) [place] % (Auto) [place] # Eos # Lymph # (Auto) [place] # (Auto) Eos # (Auto) Seg Neutrophils % Seg Neuts % (Manual) Baso # (Auto) Lymphocytes % (Manual) Monocytes % (Manual) Eosinophils % (Manual) Basophils % (Manual) Seg Neutrophils # Seg Neutrophils # Man Lymphocytes # (Manual) Monocytes # (Manual) Eosinophils # (Manual) Nucleated RBC % Basophils # (Manual) PT INR APTT Heparin Anti-Xa Level ABG pH POC ABG pO2 ABG pO2 ABG HCO3 ABG O2 Saturation ABG Base Excess POC ABG pCO2 ABG Hemoglobin ABG Oxyhemoglobin ABG Sodium ABG Chloride ABG Glucose Oxyhemoglobin Carboxyhemoglobin Sodium Potassium Chloride Carbon Dioxide BUN Creatinine Glucose POC Glucose 142 H 165 H 151 H Lactic Acid Calcium Phosphorus Magnesium AST ALT Lactate Dehydrogenase Total Bilirubin Direct Bilirubin CK-MB (CK-2) C-Reactive Protein NT-Pro-B Natriuret Pep Total Protein Albumin Arterial Blood Glucose Arterial Blood Ionized Calcium Urine WBC (Auto) Urine Creatinine Digoxin 02/01/20 02/01/20 02/02/20 17:16 23:23 06:36 WBC RBC Hgb Hct MCHC RDW MCV MCH Lymph % (Auto) [place] % (Auto) [place] # Eos # Lymph # (Auto) [place] # (Auto) Eos # (Auto) Seg Neutrophils % Seg Neuts % (Manual) Baso # (Auto) Lymphocytes % (Manual) Monocytes % (Manual) Eosinophils % (Manual) Basophils % (Manual) Seg Neutrophils # Seg Neutrophils # Man Lymphocytes # (Manual) Monocytes # (Manual) Eosinophils # (Manual) Nucleated RBC % Basophils # (Manual) PT INR APTT Heparin Anti-Xa Level ABG pH POC ABG pO2 ABG pO2 ABG HCO3 ABG O2 Saturation ABG Base Excess POC ABG pCO2 ABG Hemoglobin ABG Oxyhemoglobin ABG Sodium ABG Chloride ABG Glucose Oxyhemoglobin Carboxyhemoglobin Sodium Potassium Chloride Carbon Dioxide BUN Creatinine Glucose POC Glucose 137 H 145 H 181 H Lactic Acid Calcium Phosphorus Magnesium AST ALT Lactate Dehydrogenase Total Bilirubin Direct Bilirubin CK-MB (CK-2) C-Reactive Protein NT-Pro-B Natriuret Pep Total Protein Albumin Arterial Blood Glucose Arterial Blood Ionized Calcium Urine WBC (Auto) Urine Creatinine Digoxin 02/02/20 02/02/20 02/02/20 10:01 12:05 17:54 WBC RBC Hgb Hct MCHC RDW MCV MCH Lymph % (Auto) [place] % (Auto) [place] # Eos # Lymph # (Auto) [place] # (Auto) Eos # (Auto) Seg Neutrophils % Seg Neuts % (Manual) Baso # (Auto) Lymphocytes % (Manual) Monocytes % (Manual) Eosinophils % (Manual) Basophils % (Manual) Seg Neutrophils # Seg Neutrophils # Man Lymphocytes # (Manual) Monocytes # (Manual) Eosinophils # (Manual) Nucleated RBC % Basophils # (Manual) PT INR APTT Heparin Anti-Xa Level ABG pH POC ABG pO2 ABG pO2 ABG HCO3 ABG O2 Saturation ABG Base Excess POC ABG pCO2 ABG Hemoglobin ABG Oxyhemoglobin ABG Sodium ABG Chloride ABG Glucose Oxyhemoglobin Carboxyhemoglobin Sodium Potassium Chloride 95.3 L Carbon Dioxide BUN 44 H Creatinine Glucose 234 H POC Glucose 184 H 127 H Lactic Acid Calcium Phosphorus Magnesium AST 363 H ALT 457 H Lactate Dehydrogenase Total Bilirubin Direct Bilirubin CK-MB (CK-2) C-Reactive Protein NT-Pro-B Natriuret Pep Total Protein Albumin 3.0 L Arterial Blood Glucose Arterial Blood Ionized Calcium Urine WBC (Auto) Urine Creatinine Digoxin 02/02/20 02/03/20 02/03/20 23:47 05:32 07:04 WBC 13.0 H RBC Hgb 9.5 L Hct 30.8 L MCHC 31 L RDW 19.6 H MCV 81 L MCH 25 L Lymph % (Auto) [place] % (Auto) 9.4 H [place] # Eos # Lymph # (Auto) [place] # (Auto) 1.2 H Eos # (Auto) Seg Neutrophils % 72.3 H Seg Neuts % (Manual) Baso # (Auto) Lymphocytes % (Manual) Monocytes % (Manual) Eosinophils % (Manual) Basophils % (Manual) Seg Neutrophils # 9.4 H Seg Neutrophils # Man Lymphocytes # (Manual) Monocytes # (Manual) Eosinophils # (Manual) Nucleated RBC % Basophils # (Manual) PT INR APTT Heparin Anti-Xa Level ABG pH POC ABG pO2 ABG pO2 ABG HCO3 ABG O2 Saturation ABG Base Excess POC ABG pCO2 ABG Hemoglobin ABG Oxyhemoglobin ABG Sodium ABG Chloride ABG Glucose Oxyhemoglobin Carboxyhemoglobin Sodium Potassium Chloride Carbon Dioxide BUN Creatinine Glucose POC Glucose 124 H 129 H Lactic Acid Calcium Phosphorus Magnesium AST ALT Lactate Dehydrogenase Total Bilirubin Direct Bilirubin CK-MB (CK-2) C-Reactive Protein NT-Pro-B Natriuret Pep Total Protein Albumin Arterial Blood Glucose Arterial Blood Ionized Calcium Urine WBC (Auto) Urine Creatinine Digoxin 02/03/20 02/03/20 02/03/20 07:04 11:32 12:49 WBC RBC Hgb Hct MCHC RDW MCV MCH Lymph % (Auto) [place] % (Auto) [place] # Eos # Lymph # (Auto) [place] # (Auto) Eos # (Auto) Seg Neutrophils % Seg Neuts % (Manual) Baso # (Auto) Lymphocytes % (Manual) Monocytes % (Manual) Eosinophils % (Manual) Basophils % (Manual) Seg Neutrophils # Seg Neutrophils # Man Lymphocytes # (Manual) Monocytes # (Manual) Eosinophils # (Manual) Nucleated RBC % Basophils # (Manual) PT INR APTT Heparin Anti-Xa Level ABG pH POC ABG pO2 ABG pO2 ABG HCO3 ABG O2 Saturation ABG Base Excess POC ABG pCO2 ABG Hemoglobin ABG Oxyhemoglobin ABG Sodium ABG Chloride ABG Glucose Oxyhemoglobin Carboxyhemoglobin Sodium Potassium Chloride 97.9 L Carbon Dioxide 33 H BUN 39 H Creatinine Glucose 119 H POC Glucose 138 H Lactic Acid Calcium Phosphorus Magnesium 2.60 H AST ALT Lactate Dehydrogenase Total Bilirubin Direct Bilirubin CK-MB (CK-2) C-Reactive Protein NT-Pro-B Natriuret Pep Total Protein Albumin Arterial Blood Glucose Arterial Blood Ionized Calcium Urine WBC (Auto) Urine Creatinine Digoxin 02/03/20 02/04/20 02/04/20 18:28 16:24 16:24 WBC RBC 3.38 L Hgb 8.6 L Hct 26.9 L MCHC RDW 19.5 H MCV 80 L MCH 26 L Lymph % (Auto) [place] % (Auto) [place] # Eos # Lymph # (Auto) [place] # (Auto) Eos # (Auto) Seg Neutrophils % Seg Neuts % (Manual) Baso # (Auto) Lymphocytes % (Manual) Monocytes % (Manual) Eosinophils % (Manual) Basophils % (Manual) Seg Neutrophils # Seg Neutrophils # Man Lymphocytes # (Manual) Monocytes # (Manual) Eosinophils # (Manual) Nucleated RBC % Basophils # (Manual) PT INR APTT Heparin Anti-Xa Level ABG pH POC ABG pO2 ABG pO2 ABG HCO3 ABG O2 Saturation ABG Base Excess POC ABG pCO2 ABG Hemoglobin ABG Oxyhemoglobin ABG Sodium ABG Chloride ABG Glucose Oxyhemoglobin Carboxyhemoglobin Sodium Potassium 3.4 L Chloride Carbon Dioxide 31 H BUN 37 H Creatinine Glucose 70 L POC Glucose 118 H Lactic Acid Calcium Phosphorus Magnesium AST 169 H ALT 394 H Lactate Dehydrogenase Total Bilirubin 1.50 H Direct Bilirubin CK-MB (CK-2) C-Reactive Protein NT-Pro-B Natriuret Pep Total Protein Albumin 2.9 L Arterial Blood Glucose Arterial Blood Ionized Calcium Urine WBC (Auto) Urine Creatinine Digoxin 02/05/20 02/05/20 02/05/20 00:41 06:37 17:14 WBC RBC Hgb Hct MCHC RDW MCV MCH Lymph % (Auto) [place] % (Auto) [place] # Eos # Lymph # (Auto) [place] # (Auto) Eos # (Auto) Seg Neutrophils % Seg Neuts % (Manual) Baso # (Auto) Lymphocytes % (Manual) Monocytes % (Manual) Eosinophils % (Manual) Basophils % (Manual) Seg Neutrophils # Seg Neutrophils # Man Lymphocytes # (Manual) Monocytes # (Manual) Eosinophils # (Manual) Nucleated RBC % Basophils # (Manual) PT INR APTT Heparin Anti-Xa Level ABG pH POC ABG pO2 ABG pO2 ABG HCO3 ABG O2 Saturation ABG Base Excess POC ABG pCO2 ABG Hemoglobin ABG Oxyhemoglobin ABG Sodium ABG Chloride ABG Glucose Oxyhemoglobin Carboxyhemoglobin Sodium Potassium 3.1 L Chloride Carbon Dioxide 35 H BUN 32 H Creatinine 0.7 L Glucose POC Glucose 69 L 127 H Lactic Acid Calcium Phosphorus Magnesium AST 134 H ALT 352 H Lactate Dehydrogenase Total Bilirubin 1.60 H Direct Bilirubin CK-MB (CK-2) C-Reactive Protein NT-Pro-B Natriuret Pep Total Protein Albumin 2.9 L Arterial Blood Glucose Arterial Blood Ionized Calcium Urine WBC (Auto) Urine Creatinine Digoxin 02/05/20 02/06/20 02/06/20 23:43 05:32 08:01 WBC RBC Hgb Hct MCHC RDW MCV MCH Lymph % (Auto) [place] % (Auto) [place] # Eos # Lymph # (Auto) [place] # (Auto) Eos # (Auto) Seg Neutrophils % Seg Neuts % (Manual) Baso # (Auto) Lymphocytes % (Manual) Monocytes % (Manual) Eosinophils % (Manual) Basophils % (Manual) Seg Neutrophils # Seg Neutrophils # Man Lymphocytes # (Manual) Monocytes # (Manual) Eosinophils # (Manual) Nucleated RBC % Basophils # (Manual) PT INR APTT Heparin Anti-Xa Level ABG pH POC ABG pO2 ABG pO2 ABG HCO3 ABG O2 Saturation ABG Base Excess POC ABG pCO2 ABG Hemoglobin ABG Oxyhemoglobin ABG Sodium ABG Chloride ABG Glucose Oxyhemoglobin Carboxyhemoglobin Sodium Potassium Chloride Carbon Dioxide BUN 40 H Creatinine Glucose 132 H POC Glucose 129 H 131 H Lactic Acid Calcium Phosphorus Magnesium AST ALT Lactate Dehydrogenase Total Bilirubin Direct Bilirubin CK-MB (CK-2) C-Reactive Protein NT-Pro-B Natriuret Pep Total Protein Albumin Arterial Blood Glucose Arterial Blood Ionized Calcium Urine WBC (Auto) Urine Creatinine Digoxin 02/06/20 02/06/20 02/06/20 11:51 16:28 17:32 WBC RBC Hgb Hct MCHC RDW MCV MCH Lymph % (Auto) [place] % (Auto) [place] # Eos # Lymph # (Auto) [place] # (Auto) Eos # (Auto) Seg Neutrophils % Seg Neuts % (Manual) Baso # (Auto) Lymphocytes % (Manual) Monocytes % (Manual) Eosinophils % (Manual) Basophils % (Manual) Seg Neutrophils # Seg Neutrophils # Man Lymphocytes # (Manual) Monocytes # (Manual) Eosinophils # (Manual) Nucleated RBC % Basophils # (Manual) PT INR APTT Heparin Anti-Xa Level ABG pH POC ABG pO2 ABG pO2 ABG HCO3 ABG O2 Saturation ABG Base Excess POC ABG pCO2 ABG Hemoglobin ABG Oxyhemoglobin ABG Sodium ABG Chloride ABG Glucose Oxyhemoglobin Carboxyhemoglobin Sodium Potassium Chloride Carbon Dioxide BUN Creatinine Glucose POC Glucose 167 H 129 H Lactic Acid Calcium Phosphorus Magnesium AST 824 H ALT 948 H Lactate Dehydrogenase Total Bilirubin 1.70 H Direct Bilirubin 1.2 H CK-MB (CK-2) C-Reactive Protein NT-Pro-B Natriuret Pep Total Protein Albumin 2.9 L Arterial Blood Glucose Arterial Blood Ionized Calcium Urine WBC (Auto) Urine Creatinine Digoxin 02/07/20 02/07/20 02/07/20 00:11 04:57 04:57 WBC RBC Hgb 9.2 L Hct 29.7 L MCHC 31 L RDW 20.2 H MCV 80 L MCH 25 L Lymph % (Auto) [place] % (Auto) [place] # Eos # Lymph # (Auto) [place] # (Auto) Eos # (Auto) Seg Neutrophils % Seg Neuts % (Manual) Baso # (Auto) Lymphocytes % (Manual) Monocytes % (Manual) Eosinophils % (Manual) Basophils % (Manual) Seg Neutrophils # Seg Neutrophils # Man Lymphocytes # (Manual) Monocytes # (Manual) Eosinophils # (Manual) Nucleated RBC % Basophils # (Manual) PT INR APTT Heparin Anti-Xa Level ABG pH POC ABG pO2 ABG pO2 ABG HCO3 ABG O2 Saturation ABG Base Excess POC ABG pCO2 ABG Hemoglobin ABG Oxyhemoglobin ABG Sodium ABG Chloride ABG Glucose Oxyhemoglobin Carboxyhemoglobin Sodium Potassium 3.4 L D Chloride Carbon Dioxide 32 H BUN 39 H Creatinine Glucose 106 H POC Glucose 121 H Lactic Acid Calcium Phosphorus Magnesium AST ALT Lactate Dehydrogenase Total Bilirubin Direct Bilirubin CK-MB (CK-2) C-Reactive Protein NT-Pro-B Natriuret Pep Total Protein Albumin Arterial Blood Glucose Arterial Blood Ionized Calcium Urine WBC (Auto) Urine Creatinine Digoxin 02/07/20 02/07/20 02/07/20 15:03 15:03 17:11 WBC RBC Hgb Hct MCHC RDW MCV MCH Lymph % (Auto) [place] % (Auto) [place] # Eos # Lymph # (Auto) [place] # (Auto) Eos # (Auto) Seg Neutrophils % Seg Neuts % (Manual) Baso # (Auto) Lymphocytes % (Manual) Monocytes % (Manual) Eosinophils % (Manual) Basophils % (Manual) Seg Neutrophils # Seg Neutrophils # Man Lymphocytes # (Manual) Monocytes # (Manual) Eosinophils # (Manual) Nucleated RBC % Basophils # (Manual) PT 27.0 H INR 2.46 H APTT Heparin Anti-Xa Level ABG pH POC ABG pO2 ABG pO2 ABG HCO3 ABG O2 Saturation ABG Base Excess POC ABG pCO2 ABG Hemoglobin ABG Oxyhemoglobin ABG Sodium ABG Chloride ABG Glucose Oxyhemoglobin Carboxyhemoglobin Sodium Potassium Chloride Carbon Dioxide BUN Creatinine Glucose POC Glucose 109 H Lactic Acid Calcium Phosphorus Magnesium AST 424 H ALT 796 H Lactate Dehydrogenase Total Bilirubin 1.60 H Direct Bilirubin 1.2 H CK-MB (CK-2) C-Reactive Protein NT-Pro-B Natriuret Pep Total Protein Albumin 2.9 L Arterial Blood Glucose Arterial Blood Ionized Calcium Urine WBC (Auto) Urine Creatinine Digoxin 02/08/20 02/08/20 02/08/20 12:14 17:44 19:00 WBC RBC Hgb Hct MCHC RDW MCV MCH Lymph % (Auto) [place] % (Auto) [place] # Eos # Lymph # (Auto) [place] # (Auto) Eos # (Auto) Seg Neutrophils % Seg Neuts % (Manual) Baso # (Auto) Lymphocytes % (Manual) Monocytes % (Manual) Eosinophils % (Manual) Basophils % (Manual) Seg Neutrophils # Seg Neutrophils # Man Lymphocytes # (Manual) Monocytes # (Manual) Eosinophils # (Manual) Nucleated RBC % Basophils # (Manual) PT INR APTT Heparin Anti-Xa Level ABG pH POC ABG pO2 ABG pO2 ABG HCO3 ABG O2 Saturation ABG Base Excess POC ABG pCO2 ABG Hemoglobin ABG Oxyhemoglobin ABG Sodium ABG Chloride ABG Glucose Oxyhemoglobin Carboxyhemoglobin Sodium Potassium Chloride Carbon Dioxide BUN Creatinine Glucose POC Glucose 111 H 107 H Lactic Acid Calcium Phosphorus Magnesium AST 309 H ALT 650 H Lactate Dehydrogenase Total Bilirubin 1.30 H Direct Bilirubin 0.9 H CK-MB (CK-2) C-Reactive Protein NT-Pro-B Natriuret Pep Total Protein 6.2 L Albumin 2.7 L Arterial Blood Glucose Arterial Blood Ionized Calcium Urine WBC (Auto) Urine Creatinine Digoxin 02/09/20 02/09/20 02/09/20 05:41 12:28 18:07 WBC RBC Hgb Hct MCHC RDW MCV MCH Lymph % (Auto) [place] % (Auto) [place] # Eos # Lymph # (Auto) [place] # (Auto) Eos # (Auto) Seg Neutrophils % Seg Neuts % (Manual) Baso # (Auto) Lymphocytes % (Manual) Monocytes % (Manual) Eosinophils % (Manual) Basophils % (Manual) Seg Neutrophils # Seg Neutrophils # Man Lymphocytes # (Manual) Monocytes # (Manual) Eosinophils # (Manual) Nucleated RBC % Basophils # (Manual) PT INR APTT Heparin Anti-Xa Level ABG pH POC ABG pO2 ABG pO2 ABG HCO3 ABG O2 Saturation ABG Base Excess POC ABG pCO2 ABG Hemoglobin ABG Oxyhemoglobin ABG Sodium ABG Chloride ABG Glucose Oxyhemoglobin Carboxyhemoglobin Sodium Potassium Chloride Carbon Dioxide BUN Creatinine Glucose POC Glucose 113 H 140 H 143 H Lactic Acid Calcium Phosphorus Magnesium AST ALT Lactate Dehydrogenase Total Bilirubin Direct Bilirubin CK-MB (CK-2) C-Reactive Protein NT-Pro-B Natriuret Pep Total Protein Albumin Arterial Blood Glucose Arterial Blood Ionized Calcium Urine WBC (Auto) Urine Creatinine Digoxin 02/09/20 02/09/20 02/10/20 21:40 23:45 06:00 WBC RBC Hgb Hct MCHC RDW MCV MCH Lymph % (Auto) [place] % (Auto) [place] # Eos # Lymph # (Auto) [place] # (Auto) Eos # (Auto) Seg Neutrophils % Seg Neuts % (Manual) Baso # (Auto) Lymphocytes % (Manual) Monocytes % (Manual) Eosinophils % (Manual) Basophils % (Manual) Seg Neutrophils # Seg Neutrophils # Man Lymphocytes # (Manual) Monocytes # (Manual) Eosinophils # (Manual) Nucleated RBC % Basophils # (Manual) PT INR APTT Heparin Anti-Xa Level ABG pH POC ABG pO2 ABG pO2 59.8 L ABG HCO3 33.3 H ABG O2 Saturation 88.9 L ABG Base Excess 7.4 H POC ABG pCO2 ABG Hemoglobin 10.4 L ABG Oxyhemoglobin ABG Sodium ABG Chloride ABG Glucose Oxyhemoglobin 86.3 L Carboxyhemoglobin Sodium Potassium Chloride Carbon Dioxide BUN Creatinine Glucose POC Glucose 127 H 114 H Lactic Acid Calcium Phosphorus Magnesium AST ALT Lactate Dehydrogenase Total Bilirubin Direct Bilirubin CK-MB (CK-2) C-Reactive Protein NT-Pro-B Natriuret Pep Total Protein Albumin Arterial Blood Glucose Arterial Blood Ionized Calcium Urine WBC (Auto) Urine Creatinine Digoxin 02/10/20 02/10/20 02/10/20 07:40 07:40 13:38 WBC 11.5 H RBC Hgb 10.6 L Hct 34.7 L MCHC 31 L RDW 19.8 H MCV 79 L MCH 24 L Lymph % (Auto) [place] % (Auto) 9.2 H [place] # Eos # Lymph # (Auto) [place] # (Auto) 1.1 H Eos # (Auto) Seg Neutrophils % Seg Neuts % (Manual) Baso # (Auto) Lymphocytes % (Manual) Monocytes % (Manual) Eosinophils % (Manual) Basophils % (Manual) Seg Neutrophils # Seg Neutrophils # Man Lymphocytes # (Manual) Monocytes # (Manual) Eosinophils # (Manual) Nucleated RBC % Basophils # (Manual) PT INR APTT Heparin Anti-Xa Level ABG pH POC ABG pO2 ABG pO2 ABG HCO3 ABG O2 Saturation ABG Base Excess POC ABG pCO2 ABG Hemoglobin ABG Oxyhemoglobin ABG Sodium ABG Chloride ABG Glucose Oxyhemoglobin Carboxyhemoglobin Sodium 151 H Potassium Chloride 107.2 H Carbon Dioxide 36 H BUN 25 H Creatinine 0.7 L Glucose 114 H POC Glucose 116 H Lactic Acid Calcium Phosphorus Magnesium 2.40 H AST ALT Lactate Dehydrogenase Total Bilirubin Direct Bilirubin CK-MB (CK-2) C-Reactive Protein NT-Pro-B Natriuret Pep Total Protein Albumin Arterial Blood Glucose Arterial Blood Ionized Calcium Urine WBC (Auto) Urine Creatinine Digoxin 02/10/20 02/11/20 02/11/20 17:44 05:47 12:21 WBC RBC Hgb Hct MCHC RDW MCV MCH Lymph % (Auto) [place] % (Auto) [place] # Eos # Lymph # (Auto) [place] # (Auto) Eos # (Auto) Seg Neutrophils % Seg Neuts % (Manual) Baso # (Auto) Lymphocytes % (Manual) Monocytes % (Manual) Eosinophils % (Manual) Basophils % (Manual) Seg Neutrophils # Seg Neutrophils # Man Lymphocytes # (Manual) Monocytes # (Manual) Eosinophils # (Manual) Nucleated RBC % Basophils # (Manual) PT INR APTT Heparin Anti-Xa Level ABG pH POC ABG pO2 ABG pO2 ABG HCO3 ABG O2 Saturation ABG Base Excess POC ABG pCO2 ABG Hemoglobin ABG Oxyhemoglobin ABG Sodium ABG Chloride ABG Glucose Oxyhemoglobin Carboxyhemoglobin Sodium Potassium Chloride Carbon Dioxide BUN Creatinine Glucose POC Glucose 139 H 173 H 143 H Lactic Acid Calcium Phosphorus Magnesium AST ALT Lactate Dehydrogenase Total Bilirubin Direct Bilirubin CK-MB (CK-2) C-Reactive Protein NT-Pro-B Natriuret Pep Total Protein Albumin Arterial Blood Glucose Arterial Blood Ionized Calcium Urine WBC (Auto) Urine Creatinine Digoxin 02/11/20 02/11/20 02/12/20 13:43 14:11 00:15 WBC RBC Hgb Hct MCHC RDW MCV MCH Lymph % (Auto) [place] % (Auto) [place] # Eos # Lymph # (Auto) [place] # (Auto) Eos # (Auto) Seg Neutrophils % Seg Neuts % (Manual) Baso # (Auto) Lymphocytes % (Manual) Monocytes % (Manual) Eosinophils % (Manual) Basophils % (Manual) Seg Neutrophils # Seg Neutrophils # Man Lymphocytes # (Manual) Monocytes # (Manual) Eosinophils # (Manual) Nucleated RBC % Basophils # (Manual) PT INR APTT Heparin Anti-Xa Level ABG pH 7.502 H POC ABG pO2 77.7 L ABG pO2 ABG HCO3 ABG O2 Saturation ABG Base Excess POC ABG pCO2 ABG Hemoglobin 11.1 L ABG Oxyhemoglobin ABG Sodium ABG Chloride 108.0 H ABG Glucose 151 H Oxyhemoglobin Carboxyhemoglobin Sodium Potassium Chloride Carbon Dioxide BUN Creatinine Glucose POC Glucose 130 H 125 H Lactic Acid Calcium Phosphorus Magnesium AST ALT Lactate Dehydrogenase Total Bilirubin Direct Bilirubin CK-MB (CK-2) C-Reactive Protein NT-Pro-B Natriuret Pep Total Protein Albumin Arterial Blood Glucose 151 H Arterial Blood Ionized Calcium Urine WBC (Auto) Urine Creatinine Digoxin 02/12/20 02/12/20 02/12/20 04:56 04:56 17:42 WBC RBC Hgb 9.9 L Hct 31.8 L MCHC 31 L RDW 19.4 H MCV 79 L MCH 25 L Lymph % (Auto) [place] % (Auto) 10.3 H [place] # Eos # Lymph # (Auto) [place] # (Auto) 1.0 H Eos # (Auto) Seg Neutrophils % Seg Neuts % (Manual) Baso # (Auto) Lymphocytes % (Manual) Monocytes % (Manual) Eosinophils % (Manual) Basophils % (Manual) Seg Neutrophils # Seg Neutrophils # Man Lymphocytes # (Manual) Monocytes # (Manual) Eosinophils # (Manual) Nucleated RBC % Basophils # (Manual) PT INR APTT Heparin Anti-Xa Level ABG pH POC ABG pO2 ABG pO2 ABG HCO3 ABG O2 Saturation ABG Base Excess POC ABG pCO2 ABG Hemoglobin ABG Oxyhemoglobin ABG Sodium ABG Chloride ABG Glucose Oxyhemoglobin Carboxyhemoglobin Sodium 149 H Potassium Chloride 108.6 H Carbon Dioxide BUN 28 H Creatinine 0.7 L Glucose 108 H POC Glucose 113 H Lactic Acid Calcium Phosphorus Magnesium AST ALT Lactate Dehydrogenase Total Bilirubin Direct Bilirubin CK-MB (CK-2) C-Reactive Protein NT-Pro-B Natriuret Pep Total Protein Albumin Arterial Blood Glucose Arterial Blood Ionized Calcium Urine WBC (Auto) Urine Creatinine Digoxin 02/13/20 02/13/20 02/13/20 00:39 05:36 12:25 WBC RBC Hgb Hct MCHC RDW MCV MCH Lymph % (Auto) [place] % (Auto) [place] # Eos # Lymph # (Auto) [place] # (Auto) Eos # (Auto) Seg Neutrophils % Seg Neuts % (Manual) Baso # (Auto) Lymphocytes % (Manual) Monocytes % (Manual) Eosinophils % (Manual) Basophils % (Manual) Seg Neutrophils # Seg Neutrophils # Man Lymphocytes # (Manual) Monocytes # (Manual) Eosinophils # (Manual) Nucleated RBC % Basophils # (Manual) PT INR APTT Heparin Anti-Xa Level ABG pH POC ABG pO2 ABG pO2 ABG HCO3 ABG O2 Saturation ABG Base Excess POC ABG pCO2 ABG Hemoglobin ABG Oxyhemoglobin ABG Sodium ABG Chloride ABG Glucose Oxyhemoglobin Carboxyhemoglobin Sodium Potassium Chloride Carbon Dioxide BUN Creatinine Glucose POC Glucose 129 H 126 H 129 H Lactic Acid Calcium Phosphorus Magnesium AST ALT Lactate Dehydrogenase Total Bilirubin Direct Bilirubin CK-MB (CK-2) C-Reactive Protein NT-Pro-B Natriuret Pep Total Protein Albumin Arterial Blood Glucose Arterial Blood Ionized Calcium Urine WBC (Auto) Urine Creatinine Digoxin 02/13/20 02/14/20 02/14/20 17:59 00:15 05:41 WBC RBC Hgb Hct MCHC RDW MCV MCH Lymph % (Auto) [place] % (Auto) [place] # Eos # Lymph # (Auto) [place] # (Auto) Eos # (Auto) Seg Neutrophils % Seg Neuts % (Manual) Baso # (Auto) Lymphocytes % (Manual) Monocytes % (Manual) Eosinophils % (Manual) Basophils % (Manual) Seg Neutrophils # Seg Neutrophils # Man Lymphocytes # (Manual) Monocytes # (Manual) Eosinophils # (Manual) Nucleated RBC % Basophils # (Manual) PT INR APTT Heparin Anti-Xa Level ABG pH POC ABG pO2 ABG pO2 ABG HCO3 ABG O2 Saturation ABG Base Excess POC ABG pCO2 ABG Hemoglobin ABG Oxyhemoglobin ABG Sodium ABG Chloride ABG Glucose Oxyhemoglobin Carboxyhemoglobin Sodium Potassium Chloride Carbon Dioxide BUN Creatinine Glucose POC Glucose 153 H 130 H 130 H Lactic Acid Calcium Phosphorus Magnesium AST ALT Lactate Dehydrogenase Total Bilirubin Direct Bilirubin CK-MB (CK-2) C-Reactive Protein NT-Pro-B Natriuret Pep Total Protein Albumin Arterial Blood Glucose Arterial Blood Ionized Calcium Urine WBC (Auto) Urine Creatinine Digoxin 02/14/20 02/15/20 02/15/20 11:32 00:12 05:27 WBC RBC Hgb Hct MCHC RDW MCV MCH Lymph % (Auto) [place] % (Auto) [place] # Eos # Lymph # (Auto) [place] # (Auto) Eos # (Auto) Seg Neutrophils % Seg Neuts % (Manual) Baso # (Auto) Lymphocytes % (Manual) Monocytes % (Manual) Eosinophils % (Manual) Basophils % (Manual) Seg Neutrophils # Seg Neutrophils # Man Lymphocytes # (Manual) Monocytes # (Manual) Eosinophils # (Manual) Nucleated RBC % Basophils # (Manual) PT INR APTT Heparin Anti-Xa Level ABG pH POC ABG pO2 ABG pO2 ABG HCO3 ABG O2 Saturation ABG Base Excess POC ABG pCO2 ABG Hemoglobin ABG Oxyhemoglobin ABG Sodium ABG Chloride ABG Glucose Oxyhemoglobin Carboxyhemoglobin Sodium Potassium Chloride Carbon Dioxide BUN Creatinine Glucose POC Glucose 157 H 124 H 111 H Lactic Acid Calcium Phosphorus Magnesium AST ALT Lactate Dehydrogenase Total Bilirubin Direct Bilirubin CK-MB (CK-2) C-Reactive Protein NT-Pro-B Natriuret Pep Total Protein Albumin Arterial Blood Glucose Arterial Blood Ionized Calcium Urine WBC (Auto) Urine Creatinine Digoxin 02/15/20 02/15/20 02/15/20 06:59 06:59 11:14 WBC RBC Hgb 10.4 L Hct 33.7 L MCHC 31 L RDW 19.4 H MCV 80 L MCH 24 L Lymph % (Auto) [place] % (Auto) [place] # Eos # Lymph # (Auto) [place] # (Auto) Eos # (Auto) Seg Neutrophils % Seg Neuts % (Manual) Baso # (Auto) Lymphocytes % (Manual) Monocytes % (Manual) Eosinophils % (Manual) Basophils % (Manual) 2.0 H Seg Neutrophils # Seg Neutrophils # Man Lymphocytes # (Manual) Monocytes # (Manual) Eosinophils # (Manual) Nucleated RBC % 1.0 H Basophils # (Manual) 0.2 H PT INR APTT Heparin Anti-Xa Level ABG pH POC ABG pO2 ABG pO2 ABG HCO3 ABG O2 Saturation ABG Base Excess POC ABG pCO2 ABG Hemoglobin ABG Oxyhemoglobin ABG Sodium ABG Chloride ABG Glucose Oxyhemoglobin Carboxyhemoglobin Sodium 149 H Potassium Chloride 108.4 H Carbon Dioxide 31 H BUN 40 H Creatinine 0.7 L Glucose 150 H POC Glucose 128 H Lactic Acid Calcium Phosphorus Magnesium AST ALT Lactate Dehydrogenase Total Bilirubin Direct Bilirubin CK-MB (CK-2) C-Reactive Protein NT-Pro-B Natriuret Pep Total Protein Albumin Arterial Blood Glucose Arterial Blood Ionized Calcium Urine WBC (Auto) Urine Creatinine Digoxin 02/15/20 02/15/20 02/16/20 17:46 23:50 05:03 WBC RBC Hgb Hct MCHC RDW MCV MCH Lymph % (Auto) [place] % (Auto) [place] # Eos # Lymph # (Auto) [place] # (Auto) Eos # (Auto) Seg Neutrophils % Seg Neuts % (Manual) Baso # (Auto) Lymphocytes % (Manual) Monocytes % (Manual) Eosinophils % (Manual) Basophils % (Manual) Seg Neutrophils # Seg Neutrophils # Man Lymphocytes # (Manual) Monocytes # (Manual) Eosinophils # (Manual) Nucleated RBC % Basophils # (Manual) PT INR APTT Heparin Anti-Xa Level ABG pH POC ABG pO2 ABG pO2 ABG HCO3 ABG O2 Saturation ABG Base Excess POC ABG pCO2 ABG Hemoglobin ABG Oxyhemoglobin ABG Sodium ABG Chloride ABG Glucose Oxyhemoglobin Carboxyhemoglobin Sodium Potassium Chloride Carbon Dioxide BUN Creatinine Glucose POC Glucose 154 H 135 H 148 H Lactic Acid Calcium Phosphorus Magnesium AST ALT Lactate Dehydrogenase Total Bilirubin Direct Bilirubin CK-MB (CK-2) C-Reactive Protein NT-Pro-B Natriuret Pep Total Protein Albumin Arterial Blood Glucose Arterial Blood Ionized Calcium Urine WBC (Auto) Urine Creatinine Digoxin 02/16/20 02/16/20 02/16/20 07:53 11:28 17:52 WBC RBC Hgb Hct MCHC RDW MCV MCH Lymph % (Auto) [place] % (Auto) [place] # Eos # Lymph # (Auto) [place] # (Auto) Eos # (Auto) Seg Neutrophils % Seg Neuts % (Manual) Baso # (Auto) Lymphocytes % (Manual) Monocytes % (Manual) Eosinophils % (Manual) Basophils % (Manual) Seg Neutrophils # Seg Neutrophils # Man Lymphocytes # (Manual) Monocytes # (Manual) Eosinophils # (Manual) Nucleated RBC % Basophils # (Manual) PT INR APTT Heparin Anti-Xa Level ABG pH POC ABG pO2 ABG pO2 ABG HCO3 ABG O2 Saturation ABG Base Excess POC ABG pCO2 ABG Hemoglobin ABG Oxyhemoglobin ABG Sodium ABG Chloride ABG Glucose Oxyhemoglobin Carboxyhemoglobin Sodium Potassium Chloride 107.9 H Carbon Dioxide BUN 38 H Creatinine 0.6 L Glucose 151 H POC Glucose 123 H 152 H Lactic Acid Calcium Phosphorus Magnesium AST ALT Lactate Dehydrogenase Total Bilirubin Direct Bilirubin CK-MB (CK-2) C-Reactive Protein NT-Pro-B Natriuret Pep Total Protein Albumin Arterial Blood Glucose Arterial Blood Ionized Calcium Urine WBC (Auto) Urine Creatinine Digoxin 02/16/20 02/17/20 02/17/20 23:49 06:24 11:36 WBC RBC Hgb Hct MCHC RDW MCV MCH Lymph % (Auto) [place] % (Auto) [place] # Eos # Lymph # (Auto) [place] # (Auto) Eos # (Auto) Seg Neutrophils % Seg Neuts % (Manual) Baso # (Auto) Lymphocytes % (Manual) Monocytes % (Manual) Eosinophils % (Manual) Basophils % (Manual) Seg Neutrophils # Seg Neutrophils # Man Lymphocytes # (Manual) Monocytes # (Manual) Eosinophils # (Manual) Nucleated RBC % Basophils # (Manual) PT INR APTT Heparin Anti-Xa Level ABG pH POC ABG pO2 ABG pO2 ABG HCO3 ABG O2 Saturation ABG Base Excess POC ABG pCO2 ABG Hemoglobin ABG Oxyhemoglobin ABG Sodium ABG Chloride ABG Glucose Oxyhemoglobin Carboxyhemoglobin Sodium Potassium Chloride Carbon Dioxide BUN Creatinine Glucose POC Glucose 156 H 193 H 162 H Lactic Acid Calcium Phosphorus Magnesium AST ALT Lactate Dehydrogenase Total Bilirubin Direct Bilirubin CK-MB (CK-2) C-Reactive Protein NT-Pro-B Natriuret Pep Total Protein Albumin Arterial Blood Glucose Arterial Blood Ionized Calcium Urine WBC (Auto) Urine Creatinine Digoxin 02/17/20 02/17/20 02/18/20 17:55 23:28 05:11 WBC RBC Hgb Hct MCHC RDW MCV MCH Lymph % (Auto) [place] % (Auto) [place] # Eos # Lymph # (Auto) [place] # (Auto) Eos # (Auto) Seg Neutrophils % Seg Neuts % (Manual) Baso # (Auto) Lymphocytes % (Manual) Monocytes % (Manual) Eosinophils % (Manual) Basophils % (Manual) Seg Neutrophils # Seg Neutrophils # Man Lymphocytes # (Manual) Monocytes # (Manual) Eosinophils # (Manual) Nucleated RBC % Basophils # (Manual) PT INR APTT Heparin Anti-Xa Level ABG pH POC ABG pO2 ABG pO2 ABG HCO3 ABG O2 Saturation ABG Base Excess POC ABG pCO2 ABG Hemoglobin ABG Oxyhemoglobin ABG Sodium ABG Chloride ABG Glucose Oxyhemoglobin Carboxyhemoglobin Sodium Potassium Chloride Carbon Dioxide BUN Creatinine Glucose POC Glucose 165 H 146 H 122 H Lactic Acid Calcium Phosphorus Magnesium AST ALT Lactate Dehydrogenase Total Bilirubin Direct Bilirubin CK-MB (CK-2) C-Reactive Protein NT-Pro-B Natriuret Pep Total Protein Albumin Arterial Blood Glucose Arterial Blood Ionized Calcium Urine WBC (Auto) Urine Creatinine Digoxin 02/18/20 02/18/20 02/19/20 12:24 17:29 00:01 WBC RBC Hgb Hct MCHC RDW MCV MCH Lymph % (Auto) [place] % (Auto) [place] # Eos # Lymph # (Auto) [place] # (Auto) Eos # (Auto) Seg Neutrophils % Seg Neuts % (Manual) Baso # (Auto) Lymphocytes % (Manual) Monocytes % (Manual) Eosinophils % (Manual) Basophils % (Manual) Seg Neutrophils # Seg Neutrophils # Man Lymphocytes # (Manual) Monocytes # (Manual) Eosinophils # (Manual) Nucleated RBC % Basophils # (Manual) PT INR APTT Heparin Anti-Xa Level ABG pH POC ABG pO2 ABG pO2 ABG HCO3 ABG O2 Saturation ABG Base Excess POC ABG pCO2 ABG Hemoglobin ABG Oxyhemoglobin ABG Sodium ABG Chloride ABG Glucose Oxyhemoglobin Carboxyhemoglobin Sodium Potassium Chloride Carbon Dioxide BUN Creatinine Glucose POC Glucose 162 H 136 H 145 H Lactic Acid Calcium Phosphorus Magnesium AST ALT Lactate Dehydrogenase Total Bilirubin Direct Bilirubin CK-MB (CK-2) C-Reactive Protein NT-Pro-B Natriuret Pep Total Protein Albumin Arterial Blood Glucose Arterial Blood Ionized Calcium Urine WBC (Auto) Urine Creatinine Digoxin 02/19/20 02/19/20 02/19/20 05:53 11:44 17:32 WBC RBC Hgb Hct MCHC RDW MCV MCH Lymph % (Auto) [place] % (Auto) [place] # Eos # Lymph # (Auto) [place] # (Auto) Eos # (Auto) Seg Neutrophils % Seg Neuts % (Manual) Baso # (Auto) Lymphocytes % (Manual) Monocytes % (Manual) Eosinophils % (Manual) Basophils % (Manual) Seg Neutrophils # Seg Neutrophils # Man Lymphocytes # (Manual) Monocytes # (Manual) Eosinophils # (Manual) Nucleated RBC % Basophils # (Manual) PT INR APTT Heparin Anti-Xa Level ABG pH POC ABG pO2 ABG pO2 ABG HCO3 ABG O2 Saturation ABG Base Excess POC ABG pCO2 ABG Hemoglobin ABG Oxyhemoglobin ABG Sodium ABG Chloride ABG Glucose Oxyhemoglobin Carboxyhemoglobin Sodium Potassium Chloride Carbon Dioxide BUN Creatinine Glucose POC Glucose 116 H 120 H 154 H Lactic Acid Calcium Phosphorus Magnesium AST ALT Lactate Dehydrogenase Total Bilirubin Direct Bilirubin CK-MB (CK-2) C-Reactive Protein NT-Pro-B Natriuret Pep Total Protein Albumin Arterial Blood Glucose Arterial Blood Ionized Calcium Urine WBC (Auto) Urine Creatinine Digoxin 02/19/20 02/20/20 02/20/20 23:43 00:24 00:24 WBC RBC Hgb 9.4 L Hct 30.0 L MCHC 31 L RDW 20.4 H MCV 79 L MCH 25 L Lymph % (Auto) [place] % (Auto) 8.5 H [place] # Eos # Lymph # (Auto) [place] # (Auto) Eos # (Auto) Seg Neutrophils % Seg Neuts % (Manual) Baso # (Auto) Lymphocytes % (Manual) Monocytes % (Manual) Eosinophils % (Manual) Basophils % (Manual) Seg Neutrophils # Seg Neutrophils # Man Lymphocytes # (Manual) Monocytes # (Manual) Eosinophils # (Manual) Nucleated RBC % Basophils # (Manual) PT INR APTT Heparin Anti-Xa Level ABG pH POC ABG pO2 ABG pO2 ABG HCO3 ABG O2 Saturation ABG Base Excess POC ABG pCO2 ABG Hemoglobin ABG Oxyhemoglobin ABG Sodium ABG Chloride ABG Glucose Oxyhemoglobin Carboxyhemoglobin Sodium 147 H Potassium 3.4 L Chloride Carbon Dioxide 31 H BUN 34 H Creatinine 0.5 L Glucose 135 H POC Glucose 122 H Lactic Acid Calcium Phosphorus Magnesium AST ALT Lactate Dehydrogenase Total Bilirubin Direct Bilirubin CK-MB (CK-2) C-Reactive Protein NT-Pro-B Natriuret Pep Total Protein Albumin Arterial Blood Glucose Arterial Blood Ionized Calcium Urine WBC (Auto) Urine Creatinine Digoxin 02/20/20 02/20/20 02/20/20 06:07 06:45 12:03 WBC RBC Hgb Hct MCHC RDW MCV MCH Lymph % (Auto) [place] % (Auto) [place] # Eos # Lymph # (Auto) [place] # (Auto) Eos # (Auto) Seg Neutrophils % Seg Neuts % (Manual) Baso # (Auto) Lymphocytes % (Manual) Monocytes % (Manual) Eosinophils % (Manual) Basophils % (Manual) Seg Neutrophils # Seg Neutrophils # Man Lymphocytes # (Manual) Monocytes # (Manual) Eosinophils # (Manual) Nucleated RBC % Basophils # (Manual) PT INR APTT Heparin Anti-Xa Level ABG pH 7.461 H POC ABG pO2 ABG pO2 ABG HCO3 33.3 H ABG O2 Saturation ABG Base Excess 8.4 H POC ABG pCO2 ABG Hemoglobin 10.0 L ABG Oxyhemoglobin ABG Sodium ABG Chloride ABG Glucose Oxyhemoglobin 94.1 L Carboxyhemoglobin Sodium Potassium Chloride Carbon Dioxide BUN Creatinine Glucose POC Glucose 109 H 128 H Lactic Acid Calcium Phosphorus Magnesium AST ALT Lactate Dehydrogenase Total Bilirubin Direct Bilirubin CK-MB (CK-2) C-Reactive Protein NT-Pro-B Natriuret Pep Total Protein Albumin Arterial Blood Glucose Arterial Blood Ionized Calcium Urine WBC (Auto) Urine Creatinine Digoxin 02/20/20 02/20/20 02/21/20 18:02 23:55 05:42 WBC RBC Hgb Hct MCHC RDW MCV MCH Lymph % (Auto) [place] % (Auto) [place] # Eos # Lymph # (Auto) [place] # (Auto) Eos # (Auto) Seg Neutrophils % Seg Neuts % (Manual) Baso # (Auto) Lymphocytes % (Manual) Monocytes % (Manual) Eosinophils % (Manual) Basophils % (Manual) Seg Neutrophils # Seg Neutrophils # Man Lymphocytes # (Manual) Monocytes # (Manual) Eosinophils # (Manual) Nucleated RBC % Basophils # (Manual) PT INR APTT Heparin Anti-Xa Level ABG pH POC ABG pO2 ABG pO2 ABG HCO3 ABG O2 Saturation ABG Base Excess POC ABG pCO2 ABG Hemoglobin ABG Oxyhemoglobin ABG Sodium ABG Chloride ABG Glucose Oxyhemoglobin Carboxyhemoglobin Sodium Potassium Chloride Carbon Dioxide BUN Creatinine Glucose POC Glucose 118 H 125 H 127 H Lactic Acid Calcium Phosphorus Magnesium AST ALT Lactate Dehydrogenase Total Bilirubin Direct Bilirubin CK-MB (CK-2) C-Reactive Protein NT-Pro-B Natriuret Pep Total Protein Albumin Arterial Blood Glucose Arterial Blood Ionized Calcium Urine WBC (Auto) Urine Creatinine Digoxin 02/21/20 02/21/20 02/21/20 12:10 17:35 23:40 WBC RBC Hgb Hct MCHC RDW MCV MCH Lymph % (Auto) [place] % (Auto) [place] # Eos # Lymph # (Auto) [place] # (Auto) Eos # (Auto) Seg Neutrophils % Seg Neuts % (Manual) Baso # (Auto) Lymphocytes % (Manual) Monocytes % (Manual) Eosinophils % (Manual) Basophils % (Manual) Seg Neutrophils # Seg Neutrophils # Man Lymphocytes # (Manual) Monocytes # (Manual) Eosinophils # (Manual) Nucleated RBC % Basophils # (Manual) PT INR APTT Heparin Anti-Xa Level ABG pH POC ABG pO2 ABG pO2 ABG HCO3 ABG O2 Saturation ABG Base Excess POC ABG pCO2 ABG Hemoglobin ABG Oxyhemoglobin ABG Sodium ABG Chloride ABG Glucose Oxyhemoglobin Carboxyhemoglobin Sodium Potassium Chloride Carbon Dioxide BUN Creatinine Glucose POC Glucose 128 H 113 H 125 H Lactic Acid Calcium Phosphorus Magnesium AST ALT Lactate Dehydrogenase Total Bilirubin Direct Bilirubin CK-MB (CK-2) C-Reactive Protein NT-Pro-B Natriuret Pep Total Protein Albumin Arterial Blood Glucose Arterial Blood Ionized Calcium Urine WBC (Auto) Urine Creatinine Digoxin 02/22/20 02/22/20 02/22/20 05:57 08:06 08:06 WBC RBC Hgb 10.8 L Hct 35.2 L MCHC 31 L RDW 21.8 H MCV 80 L MCH 25 L Lymph % (Auto) [place] % (Auto) [place] # Eos # Lymph # (Auto) [place] # (Auto) Eos # (Auto) Seg Neutrophils % 71.5 H Seg Neuts % (Manual) Baso # (Auto) Lymphocytes % (Manual) Monocytes % (Manual) Eosinophils % (Manual) Basophils % (Manual) Seg Neutrophils # Seg Neutrophils # Man Lymphocytes # (Manual) Monocytes # (Manual) Eosinophils # (Manual) Nucleated RBC % Basophils # (Manual) PT INR APTT Heparin Anti-Xa Level ABG pH POC ABG pO2 ABG pO2 ABG HCO3 ABG O2 Saturation ABG Base Excess POC ABG pCO2 ABG Hemoglobin ABG Oxyhemoglobin ABG Sodium ABG Chloride ABG Glucose Oxyhemoglobin Carboxyhemoglobin Sodium 146 H Potassium Chloride Carbon Dioxide 34 H BUN 21 H Creatinine 0.4 L Glucose 149 H POC Glucose 138 H Lactic Acid Calcium Phosphorus Magnesium AST ALT Lactate Dehydrogenase Total Bilirubin Direct Bilirubin CK-MB (CK-2) C-Reactive Protein NT-Pro-B Natriuret Pep Total Protein Albumin Arterial Blood Glucose Arterial Blood Ionized Calcium Urine WBC (Auto) Urine Creatinine Digoxin 02/22/20 02/22/20 02/22/20 11:47 17:11 23:25 WBC RBC Hgb Hct MCHC RDW MCV MCH Lymph % (Auto) [place] % (Auto) [place] # Eos # Lymph # (Auto) [place] # (Auto) Eos # (Auto) Seg Neutrophils % Seg Neuts % (Manual) Baso # (Auto) Lymphocytes % (Manual) Monocytes % (Manual) Eosinophils % (Manual) Basophils % (Manual) Seg Neutrophils # Seg Neutrophils # Man Lymphocytes # (Manual) Monocytes # (Manual) Eosinophils # (Manual) Nucleated RBC % Basophils # (Manual) PT INR APTT Heparin Anti-Xa Level ABG pH POC ABG pO2 ABG pO2 ABG HCO3 ABG O2 Saturation ABG Base Excess POC ABG pCO2 ABG Hemoglobin ABG Oxyhemoglobin ABG Sodium ABG Chloride ABG Glucose Oxyhemoglobin Carboxyhemoglobin Sodium Potassium Chloride Carbon Dioxide BUN Creatinine Glucose POC Glucose 149 H 144 H 142 H Lactic Acid Calcium Phosphorus Magnesium AST ALT Lactate Dehydrogenase Total Bilirubin Direct Bilirubin CK-MB (CK-2) C-Reactive Protein NT-Pro-B Natriuret Pep Total Protein Albumin Arterial Blood Glucose Arterial Blood Ionized Calcium Urine WBC (Auto) Urine Creatinine Digoxin 02/23/20 02/23/20 02/23/20 05:22 11:37 18:14 WBC RBC Hgb Hct MCHC RDW MCV MCH Lymph % (Auto) [place] % (Auto) [place] # Eos # Lymph # (Auto) [place] # (Auto) Eos # (Auto) Seg Neutrophils % Seg Neuts % (Manual) Baso # (Auto) Lymphocytes % (Manual) Monocytes % (Manual) Eosinophils % (Manual) Basophils % (Manual) Seg Neutrophils # Seg Neutrophils # Man Lymphocytes # (Manual) Monocytes # (Manual) Eosinophils # (Manual) Nucleated RBC % Basophils # (Manual) PT INR APTT Heparin Anti-Xa Level ABG pH POC ABG pO2 ABG pO2 ABG HCO3 ABG O2 Saturation ABG Base Excess POC ABG pCO2 ABG Hemoglobin ABG Oxyhemoglobin ABG Sodium ABG Chloride ABG Glucose Oxyhemoglobin Carboxyhemoglobin Sodium Potassium Chloride Carbon Dioxide BUN Creatinine Glucose POC Glucose 144 H 113 H 127 H Lactic Acid Calcium Phosphorus Magnesium AST ALT Lactate Dehydrogenase Total Bilirubin Direct Bilirubin CK-MB (CK-2) C-Reactive Protein NT-Pro-B Natriuret Pep Total Protein Albumin Arterial Blood Glucose Arterial Blood Ionized Calcium Urine WBC (Auto) Urine Creatinine Digoxin 02/23/20 02/24/20 02/24/20 23:45 05:50 11:24 WBC RBC Hgb Hct MCHC RDW MCV MCH Lymph % (Auto) [place] % (Auto) [place] # Eos # Lymph # (Auto) [place] # (Auto) Eos # (Auto) Seg Neutrophils % Seg Neuts % (Manual) Baso # (Auto) Lymphocytes % (Manual) Monocytes % (Manual) Eosinophils % (Manual) Basophils % (Manual) Seg Neutrophils # Seg Neutrophils # Man Lymphocytes # (Manual) Monocytes # (Manual) Eosinophils # (Manual) Nucleated RBC % Basophils # (Manual) PT INR APTT Heparin Anti-Xa Level ABG pH POC ABG pO2 ABG pO2 ABG HCO3 ABG O2 Saturation ABG Base Excess POC ABG pCO2 ABG Hemoglobin ABG Oxyhemoglobin ABG Sodium ABG Chloride ABG Glucose Oxyhemoglobin Carboxyhemoglobin Sodium Potassium Chloride Carbon Dioxide BUN Creatinine Glucose POC Glucose 123 H 117 H 126 H Lactic Acid Calcium Phosphorus Magnesium AST ALT Lactate Dehydrogenase Total Bilirubin Direct Bilirubin CK-MB (CK-2) C-Reactive Protein NT-Pro-B Natriuret Pep Total Protein Albumin Arterial Blood Glucose Arterial Blood Ionized Calcium Urine WBC (Auto) Urine Creatinine Digoxin 02/24/20 02/24/20 02/25/20 18:35 23:27 05:20 WBC RBC Hgb Hct MCHC RDW MCV MCH Lymph % (Auto) [place] % (Auto) [place] # Eos # Lymph # (Auto) [place] # (Auto) Eos # (Auto) Seg Neutrophils % Seg Neuts % (Manual) Baso # (Auto) Lymphocytes % (Manual) Monocytes % (Manual) Eosinophils % (Manual) Basophils % (Manual) Seg Neutrophils # Seg Neutrophils # Man Lymphocytes # (Manual) Monocytes # (Manual) Eosinophils # (Manual) Nucleated RBC % Basophils # (Manual) PT INR APTT Heparin Anti-Xa Level ABG pH POC ABG pO2 ABG pO2 ABG HCO3 ABG O2 Saturation ABG Base Excess POC ABG pCO2 ABG Hemoglobin ABG Oxyhemoglobin ABG Sodium ABG Chloride ABG Glucose Oxyhemoglobin Carboxyhemoglobin Sodium Potassium Chloride Carbon Dioxide BUN Creatinine Glucose POC Glucose 121 H 127 H 133 H Lactic Acid Calcium Phosphorus Magnesium AST ALT Lactate Dehydrogenase Total Bilirubin Direct Bilirubin CK-MB (CK-2) C-Reactive Protein NT-Pro-B Natriuret Pep Total Protein Albumin Arterial Blood Glucose Arterial Blood Ionized Calcium Urine WBC (Auto) Urine Creatinine Digoxin 02/25/20 02/25/20 02/25/20 12:08 17:26 23:33 WBC RBC Hgb Hct MCHC RDW MCV MCH Lymph % (Auto) [place] % (Auto) [place] # Eos # Lymph # (Auto) [place] # (Auto) Eos # (Auto) Seg Neutrophils % Seg Neuts % (Manual) Baso # (Auto) Lymphocytes % (Manual) Monocytes % (Manual) Eosinophils % (Manual) Basophils % (Manual) Seg Neutrophils # Seg Neutrophils # Man Lymphocytes # (Manual) Monocytes # (Manual) Eosinophils # (Manual) Nucleated RBC % Basophils # (Manual) PT INR APTT Heparin Anti-Xa Level ABG pH POC ABG pO2 ABG pO2 ABG HCO3 ABG O2 Saturation ABG Base Excess POC ABG pCO2 ABG Hemoglobin ABG Oxyhemoglobin ABG Sodium ABG Chloride ABG Glucose Oxyhemoglobin Carboxyhemoglobin Sodium Potassium Chloride Carbon Dioxide BUN Creatinine Glucose POC Glucose 109 H 120 H 120 H Lactic Acid Calcium Phosphorus Magnesium AST ALT Lactate Dehydrogenase Total Bilirubin Direct Bilirubin CK-MB (CK-2) C-Reactive Protein NT-Pro-B Natriuret Pep Total Protein Albumin Arterial Blood Glucose Arterial Blood Ionized Calcium Urine WBC (Auto) Urine Creatinine Digoxin 02/26/20 02/26/20 02/27/20 05:33 07:50 12:13 WBC RBC Hgb Hct MCHC RDW MCV MCH Lymph % (Auto) [place] % (Auto) [place] # Eos # Lymph # (Auto) [place] # (Auto) Eos # (Auto) Seg Neutrophils % Seg Neuts % (Manual) Baso # (Auto) Lymphocytes % (Manual) Monocytes % (Manual) Eosinophils % (Manual) Basophils % (Manual) Seg Neutrophils # Seg Neutrophils # Man Lymphocytes # (Manual) Monocytes # (Manual) Eosinophils # (Manual) Nucleated RBC % Basophils # (Manual) PT INR APTT Heparin Anti-Xa Level ABG pH POC ABG pO2 ABG pO2 ABG HCO3 ABG O2 Saturation ABG Base Excess POC ABG pCO2 ABG Hemoglobin ABG Oxyhemoglobin ABG Sodium ABG Chloride ABG Glucose Oxyhemoglobin Carboxyhemoglobin Sodium Potassium Chloride Carbon Dioxide BUN Creatinine Glucose POC Glucose 106 H 130 H Lactic Acid Calcium Phosphorus Magnesium AST ALT Lactate Dehydrogenase Total Bilirubin Direct Bilirubin CK-MB (CK-2) C-Reactive Protein NT-Pro-B Natriuret Pep Total Protein Albumin Arterial Blood Glucose Arterial Blood Ionized Calcium Urine WBC (Auto) > 182.0 H Urine Creatinine Digoxin 02/27/20 02/27/20 02/28/20 18:20 23:33 05:01 WBC RBC Hgb Hct MCHC RDW MCV MCH Lymph % (Auto) [place] % (Auto) [place] # Eos # Lymph # (Auto) [place] # (Auto) Eos # (Auto) Seg Neutrophils % Seg Neuts % (Manual) Baso # (Auto) Lymphocytes % (Manual) Monocytes % (Manual) Eosinophils % (Manual) Basophils % (Manual) Seg Neutrophils # Seg Neutrophils # Man Lymphocytes # (Manual) Monocytes # (Manual) Eosinophils # (Manual) Nucleated RBC % Basophils # (Manual) PT INR APTT Heparin Anti-Xa Level ABG pH POC ABG pO2 ABG pO2 ABG HCO3 ABG O2 Saturation ABG Base Excess POC ABG pCO2 ABG Hemoglobin ABG Oxyhemoglobin ABG Sodium ABG Chloride ABG Glucose Oxyhemoglobin Carboxyhemoglobin Sodium Potassium Chloride Carbon Dioxide BUN Creatinine Glucose POC Glucose 109 H 124 H 134 H Lactic Acid Calcium Phosphorus Magnesium AST ALT Lactate Dehydrogenase Total Bilirubin Direct Bilirubin CK-MB (CK-2) C-Reactive Protein NT-Pro-B Natriuret Pep Total Protein Albumin Arterial Blood Glucose Arterial Blood Ionized Calcium Urine WBC (Auto) Urine Creatinine Digoxin 02/28/20 02/28/20 02/28/20 11:54 18:16 23:03 WBC RBC Hgb Hct MCHC RDW MCV MCH Lymph % (Auto) [place] % (Auto) [place] # Eos # Lymph # (Auto) [place] # (Auto) Eos # (Auto) Seg Neutrophils % Seg Neuts % (Manual) Baso # (Auto) Lymphocytes % (Manual) Monocytes % (Manual) Eosinophils % (Manual) Basophils % (Manual) Seg Neutrophils # Seg Neutrophils # Man Lymphocytes # (Manual) Monocytes # (Manual) Eosinophils # (Manual) Nucleated RBC % Basophils # (Manual) PT INR APTT Heparin Anti-Xa Level ABG pH POC ABG pO2 ABG pO2 ABG HCO3 ABG O2 Saturation ABG Base Excess POC ABG pCO2 ABG Hemoglobin ABG Oxyhemoglobin ABG Sodium ABG Chloride ABG Glucose Oxyhemoglobin Carboxyhemoglobin Sodium Potassium Chloride Carbon Dioxide BUN Creatinine Glucose POC Glucose 133 H 134 H 146 H Lactic Acid Calcium Phosphorus Magnesium AST ALT Lactate Dehydrogenase Total Bilirubin Direct Bilirubin CK-MB (CK-2) C-Reactive Protein NT-Pro-B Natriuret Pep Total Protein Albumin Arterial Blood Glucose Arterial Blood Ionized Calcium Urine WBC (Auto) Urine Creatinine Digoxin 02/29/20 02/29/20 02/29/20 05:24 11:34 17:12 WBC RBC Hgb Hct MCHC RDW MCV MCH Lymph % (Auto) [place] % (Auto) [place] # Eos # Lymph # (Auto) [place] # (Auto) Eos # (Auto) Seg Neutrophils % Seg Neuts % (Manual) Baso # (Auto) Lymphocytes % (Manual) Monocytes % (Manual) Eosinophils % (Manual) Basophils % (Manual) Seg Neutrophils # Seg Neutrophils # Man Lymphocytes # (Manual) Monocytes # (Manual) Eosinophils # (Manual) Nucleated RBC % Basophils # (Manual) PT INR APTT Heparin Anti-Xa Level ABG pH POC ABG pO2 ABG pO2 ABG HCO3 ABG O2 Saturation ABG Base Excess POC ABG pCO2 ABG Hemoglobin ABG Oxyhemoglobin ABG Sodium ABG Chloride ABG Glucose Oxyhemoglobin Carboxyhemoglobin Sodium Potassium Chloride Carbon Dioxide BUN Creatinine Glucose POC Glucose 139 H 141 H 157 H Lactic Acid Calcium Phosphorus Magnesium AST ALT Lactate Dehydrogenase Total Bilirubin Direct Bilirubin CK-MB (CK-2) C-Reactive Protein NT-Pro-B Natriuret Pep Total Protein Albumin Arterial Blood Glucose Arterial Blood Ionized Calcium Urine WBC (Auto) Urine Creatinine Digoxin 02/29/20 03/01/20 03/01/20 23:35 06:00 11:53 WBC RBC Hgb Hct MCHC RDW MCV MCH Lymph % (Auto) [place] % (Auto) [place] # Eos # Lymph # (Auto) [place] # (Auto) Eos # (Auto) Seg Neutrophils % Seg Neuts % (Manual) Baso # (Auto) Lymphocytes % (Manual) Monocytes % (Manual) Eosinophils % (Manual) Basophils % (Manual) Seg Neutrophils # Seg Neutrophils # Man Lymphocytes # (Manual) Monocytes # (Manual) Eosinophils # (Manual) Nucleated RBC % Basophils # (Manual) PT INR APTT Heparin Anti-Xa Level ABG pH POC ABG pO2 ABG pO2 ABG HCO3 ABG O2 Saturation ABG Base Excess POC ABG pCO2 ABG Hemoglobin ABG Oxyhemoglobin ABG Sodium ABG Chloride ABG Glucose Oxyhemoglobin Carboxyhemoglobin Sodium Potassium Chloride Carbon Dioxide BUN Creatinine Glucose POC Glucose 120 H 132 H 136 H Lactic Acid Calcium Phosphorus Magnesium AST ALT Lactate Dehydrogenase Total Bilirubin Direct Bilirubin CK-MB (CK-2) C-Reactive Protein NT-Pro-B Natriuret Pep Total Protein Albumin Arterial Blood Glucose Arterial Blood Ionized Calcium Urine WBC (Auto) Urine Creatinine Digoxin 03/01/20 03/01/20 03/02/20 17:36 23:16 05:12 WBC RBC Hgb Hct MCHC RDW MCV MCH Lymph % (Auto) [place] % (Auto) [place] # Eos # Lymph # (Auto) [place] # (Auto) Eos # (Auto) Seg Neutrophils % Seg Neuts % (Manual) Baso # (Auto) Lymphocytes % (Manual) Monocytes % (Manual) Eosinophils % (Manual) Basophils % (Manual) Seg Neutrophils # Seg Neutrophils # Man Lymphocytes # (Manual) Monocytes # (Manual) Eosinophils # (Manual) Nucleated RBC % Basophils # (Manual) PT INR APTT Heparin Anti-Xa Level ABG pH POC ABG pO2 ABG pO2 ABG HCO3 ABG O2 Saturation ABG Base Excess POC ABG pCO2 ABG Hemoglobin ABG Oxyhemoglobin ABG Sodium ABG Chloride ABG Glucose Oxyhemoglobin Carboxyhemoglobin Sodium Potassium Chloride Carbon Dioxide BUN Creatinine Glucose POC Glucose 171 H 164 H 176 H Lactic Acid Calcium Phosphorus Magnesium AST ALT Lactate Dehydrogenase Total Bilirubin Direct Bilirubin CK-MB (CK-2) C-Reactive Protein NT-Pro-B Natriuret Pep Total Protein Albumin Arterial Blood Glucose Arterial Blood Ionized Calcium Urine WBC (Auto) Urine Creatinine Digoxin 03/02/20 03/02/20 03/03/20 11:42 18:01 00:06 WBC RBC Hgb Hct MCHC RDW MCV MCH Lymph % (Auto) [place] % (Auto) [place] # Eos # Lymph # (Auto) [place] # (Auto) Eos # (Auto) Seg Neutrophils % Seg Neuts % (Manual) Baso # (Auto) Lymphocytes % (Manual) Monocytes % (Manual) Eosinophils % (Manual) Basophils % (Manual) Seg Neutrophils # Seg Neutrophils # Man Lymphocytes # (Manual) Monocytes # (Manual) Eosinophils # (Manual) Nucleated RBC % Basophils # (Manual) PT INR APTT Heparin Anti-Xa Level ABG pH POC ABG pO2 ABG pO2 ABG HCO3 ABG O2 Saturation ABG Base Excess POC ABG pCO2 ABG Hemoglobin ABG Oxyhemoglobin ABG Sodium ABG Chloride ABG Glucose Oxyhemoglobin Carboxyhemoglobin Sodium Potassium Chloride Carbon Dioxide BUN Creatinine Glucose POC Glucose 150 H 156 H 156 H Lactic Acid Calcium Phosphorus Magnesium AST ALT Lactate Dehydrogenase Total Bilirubin Direct Bilirubin CK-MB (CK-2) C-Reactive Protein NT-Pro-B Natriuret Pep Total Protein Albumin Arterial Blood Glucose Arterial Blood Ionized Calcium Urine WBC (Auto) Urine Creatinine Digoxin 03/03/20 03/03/20 03/03/20 03:31 11:20 16:55 WBC RBC Hgb Hct MCHC RDW MCV MCH Lymph % (Auto) [place] % (Auto) [place] # Eos # Lymph # (Auto) [place] # (Auto) Eos # (Auto) Seg Neutrophils % Seg Neuts % (Manual) Baso # (Auto) Lymphocytes % (Manual) Monocytes % (Manual) Eosinophils % (Manual) Basophils % (Manual) Seg Neutrophils # Seg Neutrophils # Man Lymphocytes # (Manual) Monocytes # (Manual) Eosinophils # (Manual) Nucleated RBC % Basophils # (Manual) PT INR APTT Heparin Anti-Xa Level ABG pH POC ABG pO2 ABG pO2 ABG HCO3 ABG O2 Saturation ABG Base Excess POC ABG pCO2 ABG Hemoglobin ABG Oxyhemoglobin ABG Sodium ABG Chloride ABG Glucose Oxyhemoglobin Carboxyhemoglobin Sodium Potassium Chloride Carbon Dioxide BUN Creatinine Glucose POC Glucose 164 H 125 H 211 H Lactic Acid Calcium Phosphorus Magnesium AST ALT Lactate Dehydrogenase Total Bilirubin Direct Bilirubin CK-MB (CK-2) C-Reactive Protein NT-Pro-B Natriuret Pep Total Protein Albumin Arterial Blood Glucose Arterial Blood Ionized Calcium Urine WBC (Auto) Urine Creatinine Digoxin 03/04/20 03/04/20 03/04/20 00:29 05:20 12:09 WBC RBC Hgb Hct MCHC RDW MCV MCH Lymph % (Auto) [place] % (Auto) [place] # Eos # Lymph # (Auto) [place] # (Auto) Eos # (Auto) Seg Neutrophils % Seg Neuts % (Manual) Baso # (Auto) Lymphocytes % (Manual) Monocytes % (Manual) Eosinophils % (Manual) Basophils % (Manual) Seg Neutrophils # Seg Neutrophils # Man Lymphocytes # (Manual) Monocytes # (Manual) Eosinophils # (Manual) Nucleated RBC % Basophils # (Manual) PT INR APTT Heparin Anti-Xa Level ABG pH POC ABG pO2 ABG pO2 ABG HCO3 ABG O2 Saturation ABG Base Excess POC ABG pCO2 ABG Hemoglobin ABG Oxyhemoglobin ABG Sodium ABG Chloride ABG Glucose Oxyhemoglobin Carboxyhemoglobin Sodium Potassium Chloride Carbon Dioxide BUN Creatinine Glucose POC Glucose 169 H 154 H 197 H Lactic Acid Calcium Phosphorus Magnesium AST ALT Lactate Dehydrogenase Total Bilirubin Direct Bilirubin CK-MB (CK-2) C-Reactive Protein NT-Pro-B Natriuret Pep Total Protein Albumin Arterial Blood Glucose Arterial Blood Ionized Calcium Urine WBC (Auto) Urine Creatinine Digoxin 03/04/20 03/04/20 03/04/20 18:00 20:38 20:38 WBC RBC Hgb 10.1 L Hct 32.7 L MCHC 31 L RDW 24.7 H MCV 79 L MCH 24 L Lymph % (Auto) [place] % (Auto) 8.9 H [place] # Eos # Lymph # (Auto) [place] # (Auto) Eos # (Auto) Seg Neutrophils % Seg Neuts % (Manual) Baso # (Auto) Lymphocytes % (Manual) Monocytes % (Manual) Eosinophils % (Manual) Basophils % (Manual) Seg Neutrophils # Seg Neutrophils # Man Lymphocytes # (Manual) Monocytes # (Manual) Eosinophils # (Manual) Nucleated RBC % Basophils # (Manual) PT INR APTT Heparin Anti-Xa Level ABG pH POC ABG pO2 ABG pO2 ABG HCO3 ABG O2 Saturation ABG Base Excess POC ABG pCO2 ABG Hemoglobin ABG Oxyhemoglobin ABG Sodium ABG Chloride ABG Glucose Oxyhemoglobin Carboxyhemoglobin Sodium 136 L Potassium Chloride Carbon Dioxide BUN 25 H Creatinine 0.5 L Glucose 148 H POC Glucose 146 H Lactic Acid Calcium Phosphorus Magnesium AST ALT Lactate Dehydrogenase Total Bilirubin Direct Bilirubin CK-MB (CK-2) C-Reactive Protein NT-Pro-B Natriuret Pep Total Protein Albumin Arterial Blood Glucose Arterial Blood Ionized Calcium Urine WBC (Auto) Urine Creatinine Digoxin 03/04/20 03/05/20 03/05/20 23:17 05:44 11:32 WBC RBC Hgb Hct MCHC RDW MCV MCH Lymph % (Auto) [place] % (Auto) [place] # Eos # Lymph # (Auto) [place] # (Auto) Eos # (Auto) Seg Neutrophils % Seg Neuts % (Manual) Baso # (Auto) Lymphocytes % (Manual) Monocytes % (Manual) Eosinophils % (Manual) Basophils % (Manual) Seg Neutrophils # Seg Neutrophils # Man Lymphocytes # (Manual) Monocytes # (Manual) Eosinophils # (Manual) Nucleated RBC % Basophils # (Manual) PT INR APTT Heparin Anti-Xa Level ABG pH POC ABG pO2 ABG pO2 ABG HCO3 ABG O2 Saturation ABG Base Excess POC ABG pCO2 ABG Hemoglobin ABG Oxyhemoglobin ABG Sodium ABG Chloride ABG Glucose Oxyhemoglobin Carboxyhemoglobin Sodium Potassium Chloride Carbon Dioxide BUN Creatinine Glucose POC Glucose 139 H 155 H 124 H Lactic Acid Calcium Phosphorus Magnesium AST ALT Lactate Dehydrogenase Total Bilirubin Direct Bilirubin CK-MB (CK-2) C-Reactive Protein NT-Pro-B Natriuret Pep Total Protein Albumin Arterial Blood Glucose Arterial Blood Ionized Calcium Urine WBC (Auto) Urine Creatinine Digoxin 03/05/20 03/05/20 03/06/20 17:45 23:18 12:16 WBC RBC Hgb Hct MCHC RDW MCV MCH Lymph % (Auto) [place] % (Auto) [place] # Eos # Lymph # (Auto) [place] # (Auto) Eos # (Auto) Seg Neutrophils % Seg Neuts % (Manual) Baso # (Auto) Lymphocytes % (Manual) Monocytes % (Manual) Eosinophils % (Manual) Basophils % (Manual) Seg Neutrophils # Seg Neutrophils # Man Lymphocytes # (Manual) Monocytes # (Manual) Eosinophils # (Manual) Nucleated RBC % Basophils # (Manual) PT INR APTT Heparin Anti-Xa Level ABG pH POC ABG pO2 ABG pO2 ABG HCO3 ABG O2 Saturation ABG Base Excess POC ABG pCO2 ABG Hemoglobin ABG Oxyhemoglobin ABG Sodium ABG Chloride ABG Glucose Oxyhemoglobin Carboxyhemoglobin Sodium Potassium Chloride Carbon Dioxide BUN Creatinine Glucose POC Glucose 171 H 114 H 155 H Lactic Acid Calcium Phosphorus Magnesium AST ALT Lactate Dehydrogenase Total Bilirubin Direct Bilirubin CK-MB (CK-2) C-Reactive Protein NT-Pro-B Natriuret Pep Total Protein Albumin Arterial Blood Glucose Arterial Blood Ionized Calcium Urine WBC (Auto) Urine Creatinine Digoxin 03/06/20 03/06/20 03/07/20 17:27 23:48 06:02 WBC RBC Hgb Hct MCHC RDW MCV MCH Lymph % (Auto) [place] % (Auto) [place] # Eos # Lymph # (Auto) [place] # (Auto) Eos # (Auto) Seg Neutrophils % Seg Neuts % (Manual) Baso # (Auto) Lymphocytes % (Manual) Monocytes % (Manual) Eosinophils % (Manual) Basophils % (Manual) Seg Neutrophils # Seg Neutrophils # Man Lymphocytes # (Manual) Monocytes # (Manual) Eosinophils # (Manual) Nucleated RBC % Basophils # (Manual) PT INR APTT Heparin Anti-Xa Level ABG pH POC ABG pO2 ABG pO2 ABG HCO3 ABG O2 Saturation ABG Base Excess POC ABG pCO2 ABG Hemoglobin ABG Oxyhemoglobin ABG Sodium ABG Chloride ABG Glucose Oxyhemoglobin Carboxyhemoglobin Sodium Potassium Chloride Carbon Dioxide BUN Creatinine Glucose POC Glucose 116 H 142 H 161 H Lactic Acid Calcium Phosphorus Magnesium AST ALT Lactate Dehydrogenase Total Bilirubin Direct Bilirubin CK-MB (CK-2) C-Reactive Protein NT-Pro-B Natriuret Pep Total Protein Albumin Arterial Blood Glucose Arterial Blood Ionized Calcium Urine WBC (Auto) Urine Creatinine Digoxin 03/07/20 03/08/20 03/08/20 11:36 05:18 11:51 WBC RBC Hgb Hct MCHC RDW MCV MCH Lymph % (Auto) [place] % (Auto) [place] # Eos # Lymph # (Auto) [place] # (Auto) Eos # (Auto) Seg Neutrophils % Seg Neuts % (Manual) Baso # (Auto) Lymphocytes % (Manual) Monocytes % (Manual) Eosinophils % (Manual) Basophils % (Manual) Seg Neutrophils # Seg Neutrophils # Man Lymphocytes # (Manual) Monocytes # (Manual) Eosinophils # (Manual) Nucleated RBC % Basophils # (Manual) PT INR APTT Heparin Anti-Xa Level ABG pH POC ABG pO2 ABG pO2 ABG HCO3 ABG O2 Saturation ABG Base Excess POC ABG pCO2 ABG Hemoglobin ABG Oxyhemoglobin ABG Sodium ABG Chloride ABG Glucose Oxyhemoglobin Carboxyhemoglobin Sodium Potassium Chloride Carbon Dioxide BUN Creatinine Glucose POC Glucose 127 H 142 H 135 H Lactic Acid Calcium Phosphorus Magnesium AST ALT Lactate Dehydrogenase Total Bilirubin Direct Bilirubin CK-MB (CK-2) C-Reactive Protein NT-Pro-B Natriuret Pep Total Protein Albumin Arterial Blood Glucose Arterial Blood Ionized Calcium Urine WBC (Auto) Urine Creatinine Digoxin 03/08/20 03/08/20 03/09/20 18:14 23:45 05:36 WBC RBC Hgb Hct MCHC RDW MCV MCH Lymph % (Auto) [place] % (Auto) [place] # Eos # Lymph # (Auto) [place] # (Auto) Eos # (Auto) Seg Neutrophils % Seg Neuts % (Manual) Baso # (Auto) Lymphocytes % (Manual) Monocytes % (Manual) Eosinophils % (Manual) Basophils % (Manual) Seg Neutrophils # Seg Neutrophils # Man Lymphocytes # (Manual) Monocytes # (Manual) Eosinophils # (Manual) Nucleated RBC % Basophils # (Manual) PT INR APTT Heparin Anti-Xa Level ABG pH POC ABG pO2 ABG pO2 ABG HCO3 ABG O2 Saturation ABG Base Excess POC ABG pCO2 ABG Hemoglobin ABG Oxyhemoglobin ABG Sodium ABG Chloride ABG Glucose Oxyhemoglobin Carboxyhemoglobin Sodium Potassium Chloride Carbon Dioxide BUN Creatinine Glucose POC Glucose 125 H 143 H 158 H Lactic Acid Calcium Phosphorus Magnesium AST ALT Lactate Dehydrogenase Total Bilirubin Direct Bilirubin CK-MB (CK-2) C-Reactive Protein NT-Pro-B Natriuret Pep Total Protein Albumin Arterial Blood Glucose Arterial Blood Ionized Calcium Urine WBC (Auto) Urine Creatinine Digoxin 03/09/20 03/09/20 03/09/20 06:32 06:32 11:34 WBC RBC Hgb 9.8 L Hct 31.6 L MCHC 31 L RDW 23.1 H MCV 80 L MCH 25 L Lymph % (Auto) 35.1 H [place] % (Auto) 11.4 H [place] # Eos # Lymph # (Auto) [place] # (Auto) Eos # (Auto) Seg Neutrophils % Seg Neuts % (Manual) Baso # (Auto) Lymphocytes % (Manual) Monocytes % (Manual) Eosinophils % (Manual) Basophils % (Manual) Seg Neutrophils # Seg Neutrophils # Man Lymphocytes # (Manual) Monocytes # (Manual) Eosinophils # (Manual) Nucleated RBC % Basophils # (Manual) PT INR APTT Heparin Anti-Xa Level ABG pH POC ABG pO2 ABG pO2 ABG HCO3 ABG O2 Saturation ABG Base Excess POC ABG pCO2 ABG Hemoglobin ABG Oxyhemoglobin ABG Sodium ABG Chloride ABG Glucose Oxyhemoglobin Carboxyhemoglobin Sodium 136 L Potassium Chloride Carbon Dioxide BUN 25 H Creatinine 0.6 L Glucose 170 H POC Glucose 140 H Lactic Acid Calcium Phosphorus Magnesium AST ALT Lactate Dehydrogenase Total Bilirubin Direct Bilirubin CK-MB (CK-2) C-Reactive Protein NT-Pro-B Natriuret Pep Total Protein Albumin Arterial Blood Glucose Arterial Blood Ionized Calcium Urine WBC (Auto) Urine Creatinine Digoxin 03/09/20 03/09/20 03/10/20 18:10 23:11 05:41 WBC RBC Hgb Hct MCHC RDW MCV MCH Lymph % (Auto) [place] % (Auto) [place] # Eos # Lymph # (Auto) [place] # (Auto) Eos # (Auto) Seg Neutrophils % Seg Neuts % (Manual) Baso # (Auto) Lymphocytes % (Manual) Monocytes % (Manual) Eosinophils % (Manual) Basophils % (Manual) Seg Neutrophils # Seg Neutrophils # Man Lymphocytes # (Manual) Monocytes # (Manual) Eosinophils # (Manual) Nucleated RBC % Basophils # (Manual) PT INR APTT Heparin Anti-Xa Level ABG pH POC ABG pO2 ABG pO2 ABG HCO3 ABG O2 Saturation ABG Base Excess POC ABG pCO2 ABG Hemoglobin ABG Oxyhemoglobin ABG Sodium ABG Chloride ABG Glucose Oxyhemoglobin Carboxyhemoglobin Sodium Potassium Chloride Carbon Dioxide BUN Creatinine Glucose POC Glucose 153 H 111 H 138 H Lactic Acid Calcium Phosphorus Magnesium AST ALT Lactate Dehydrogenase Total Bilirubin Direct Bilirubin CK-MB (CK-2) C-Reactive Protein NT-Pro-B Natriuret Pep Total Protein Albumin Arterial Blood Glucose Arterial Blood Ionized Calcium Urine WBC (Auto) Urine Creatinine Digoxin 03/10/20 03/10/20 03/10/20 11:15 17:58 23:36 WBC RBC Hgb Hct MCHC RDW MCV MCH Lymph % (Auto) [place] % (Auto) [place] # Eos # Lymph # (Auto) [place] # (Auto) Eos # (Auto) Seg Neutrophils % Seg Neuts % (Manual) Baso # (Auto) Lymphocytes % (Manual) Monocytes % (Manual) Eosinophils % (Manual) Basophils % (Manual) Seg Neutrophils # Seg Neutrophils # Man Lymphocytes # (Manual) Monocytes # (Manual) Eosinophils # (Manual) Nucleated RBC % Basophils # (Manual) PT INR APTT Heparin Anti-Xa Level ABG pH POC ABG pO2 ABG pO2 ABG HCO3 ABG O2 Saturation ABG Base Excess POC ABG pCO2 ABG Hemoglobin ABG Oxyhemoglobin ABG Sodium ABG Chloride ABG Glucose Oxyhemoglobin Carboxyhemoglobin Sodium Potassium Chloride Carbon Dioxide BUN Creatinine Glucose POC Glucose 141 H 149 H 148 H Lactic Acid Calcium Phosphorus Magnesium AST ALT Lactate Dehydrogenase Total Bilirubin Direct Bilirubin CK-MB (CK-2) C-Reactive Protein NT-Pro-B Natriuret Pep Total Protein Albumin Arterial Blood Glucose Arterial Blood Ionized Calcium Urine WBC (Auto) Urine Creatinine Digoxin 03/11/20 03/11/20 03/12/20 05:55 17:43 04:45 WBC RBC Hgb Hct MCHC RDW MCV MCH Lymph % (Auto) [place] % (Auto) [place] # Eos # Lymph # (Auto) [place] # (Auto) Eos # (Auto) Seg Neutrophils % Seg Neuts % (Manual) Baso # (Auto) Lymphocytes % (Manual) Monocytes % (Manual) Eosinophils % (Manual) Basophils % (Manual) Seg Neutrophils # Seg Neutrophils # Man Lymphocytes # (Manual) Monocytes # (Manual) Eosinophils # (Manual) Nucleated RBC % Basophils # (Manual) PT INR APTT Heparin Anti-Xa Level ABG pH 7.454 H POC ABG pO2 69.2 L ABG pO2 ABG HCO3 ABG O2 Saturation ABG Base Excess POC ABG pCO2 ABG Hemoglobin 11.2 L ABG Oxyhemoglobin ABG Sodium 134.7 L ABG Chloride ABG Glucose 151 H Oxyhemoglobin Carboxyhemoglobin Sodium Potassium Chloride Carbon Dioxide BUN Creatinine Glucose POC Glucose 181 H 107 H Lactic Acid Calcium Phosphorus Magnesium AST ALT Lactate Dehydrogenase Total Bilirubin Direct Bilirubin CK-MB (CK-2) C-Reactive Protein NT-Pro-B Natriuret Pep Total Protein Albumin Arterial Blood Glucose 151 H Arterial Blood Ionized Calcium Urine WBC (Auto) Urine Creatinine Digoxin 03/12/20 03/12/20 03/12/20 05:36 11:36 17:40 WBC RBC Hgb Hct MCHC RDW MCV MCH Lymph % (Auto) [place] % (Auto) [place] # Eos # Lymph # (Auto) [place] # (Auto) Eos # (Auto) Seg Neutrophils % Seg Neuts % (Manual) Baso # (Auto) Lymphocytes % (Manual) Monocytes % (Manual) Eosinophils % (Manual) Basophils % (Manual) Seg Neutrophils # Seg Neutrophils # Man Lymphocytes # (Manual) Monocytes # (Manual) Eosinophils # (Manual) Nucleated RBC % Basophils # (Manual) PT INR APTT Heparin Anti-Xa Level ABG pH POC ABG pO2 ABG pO2 ABG HCO3 ABG O2 Saturation ABG Base Excess POC ABG pCO2 ABG Hemoglobin ABG Oxyhemoglobin ABG Sodium ABG Chloride ABG Glucose Oxyhemoglobin Carboxyhemoglobin Sodium Potassium Chloride Carbon Dioxide BUN Creatinine Glucose POC Glucose 137 H 122 H 116 H Lactic Acid Calcium Phosphorus Magnesium AST ALT Lactate Dehydrogenase Total Bilirubin Direct Bilirubin CK-MB (CK-2) C-Reactive Protein NT-Pro-B Natriuret Pep Total Protein Albumin Arterial Blood Glucose Arterial Blood Ionized Calcium Urine WBC (Auto) Urine Creatinine Digoxin 03/12/20 03/13/20 03/13/20 23:17 05:47 11:35 WBC RBC Hgb Hct MCHC RDW MCV MCH Lymph % (Auto) [place] % (Auto) [place] # Eos # Lymph # (Auto) [place] # (Auto) Eos # (Auto) Seg Neutrophils % Seg Neuts % (Manual) Baso # (Auto) Lymphocytes % (Manual) Monocytes % (Manual) Eosinophils % (Manual) Basophils % (Manual) Seg Neutrophils # Seg Neutrophils # Man Lymphocytes # (Manual) Monocytes # (Manual) Eosinophils # (Manual) Nucleated RBC % Basophils # (Manual) PT INR APTT Heparin Anti-Xa Level ABG pH POC ABG pO2 ABG pO2 ABG HCO3 ABG O2 Saturation ABG Base Excess POC ABG pCO2 ABG Hemoglobin ABG Oxyhemoglobin ABG Sodium ABG Chloride ABG Glucose Oxyhemoglobin Carboxyhemoglobin Sodium Potassium Chloride Carbon Dioxide BUN Creatinine Glucose POC Glucose 118 H 142 H 146 H Lactic Acid Calcium Phosphorus Magnesium AST ALT Lactate Dehydrogenase Total Bilirubin Direct Bilirubin CK-MB (CK-2) C-Reactive Protein NT-Pro-B Natriuret Pep Total Protein Albumin Arterial Blood Glucose Arterial Blood Ionized Calcium Urine WBC (Auto) Urine Creatinine Digoxin 03/13/20 03/13/20 03/14/20 17:25 23:27 05:04 WBC RBC Hgb Hct MCHC RDW MCV MCH Lymph % (Auto) [place] % (Auto) [place] # Eos # Lymph # (Auto) [place] # (Auto) Eos # (Auto) Seg Neutrophils % Seg Neuts % (Manual) Baso # (Auto) Lymphocytes % (Manual) Monocytes % (Manual) Eosinophils % (Manual) Basophils % (Manual) Seg Neutrophils # Seg Neutrophils # Man Lymphocytes # (Manual) Monocytes # (Manual) Eosinophils # (Manual) Nucleated RBC % Basophils # (Manual) PT INR APTT Heparin Anti-Xa Level ABG pH POC ABG pO2 ABG pO2 ABG HCO3 ABG O2 Saturation ABG Base Excess POC ABG pCO2 ABG Hemoglobin ABG Oxyhemoglobin ABG Sodium ABG Chloride ABG Glucose Oxyhemoglobin Carboxyhemoglobin Sodium Potassium Chloride Carbon Dioxide BUN Creatinine Glucose POC Glucose 138 H 160 H 159 H Lactic Acid Calcium Phosphorus Magnesium AST ALT Lactate Dehydrogenase Total Bilirubin Direct Bilirubin CK-MB (CK-2) C-Reactive Protein NT-Pro-B Natriuret Pep Total Protein Albumin Arterial Blood Glucose Arterial Blood Ionized Calcium Urine WBC (Auto) Urine Creatinine Digoxin 03/14/20 03/14/20 03/15/20 11:19 16:18 00:18 WBC RBC Hgb Hct MCHC RDW MCV MCH Lymph % (Auto) [place] % (Auto) [place] # Eos # Lymph # (Auto) [place] # (Auto) Eos # (Auto) Seg Neutrophils % Seg Neuts % (Manual) Baso # (Auto) Lymphocytes % (Manual) Monocytes % (Manual) Eosinophils % (Manual) Basophils % (Manual) Seg Neutrophils # Seg Neutrophils # Man Lymphocytes # (Manual) Monocytes # (Manual) Eosinophils # (Manual) Nucleated RBC % Basophils # (Manual) PT INR APTT Heparin Anti-Xa Level ABG pH POC ABG pO2 ABG pO2 ABG HCO3 ABG O2 Saturation ABG Base Excess POC ABG pCO2 ABG Hemoglobin ABG Oxyhemoglobin ABG Sodium ABG Chloride ABG Glucose Oxyhemoglobin Carboxyhemoglobin Sodium Potassium Chloride Carbon Dioxide BUN Creatinine Glucose POC Glucose 130 H 170 H 125 H Lactic Acid Calcium Phosphorus Magnesium AST ALT Lactate Dehydrogenase Total Bilirubin Direct Bilirubin CK-MB (CK-2) C-Reactive Protein NT-Pro-B Natriuret Pep Total Protein Albumin Arterial Blood Glucose Arterial Blood Ionized Calcium Urine WBC (Auto) Urine Creatinine Digoxin 03/15/20 03/15/20 03/15/20 04:05 04:05 05:36 WBC RBC Hgb 10.0 L Hct 31.6 L MCHC RDW 22.4 H MCV 77 L MCH 24 L Lymph % (Auto) 36.2 H [place] % (Auto) 9.4 H [place] # Eos # Lymph # (Auto) [place] # (Auto) Eos # (Auto) Seg Neutrophils % Seg Neuts % (Manual) Baso # (Auto) Lymphocytes % (Manual) Monocytes % (Manual) Eosinophils % (Manual) Basophils % (Manual) Seg Neutrophils # Seg Neutrophils # Man Lymphocytes # (Manual) Monocytes # (Manual) Eosinophils # (Manual) Nucleated RBC % Basophils # (Manual) PT INR APTT Heparin Anti-Xa Level ABG pH POC ABG pO2 ABG pO2 ABG HCO3 ABG O2 Saturation ABG Base Excess POC ABG pCO2 ABG Hemoglobin ABG Oxyhemoglobin ABG Sodium ABG Chloride ABG Glucose Oxyhemoglobin Carboxyhemoglobin Sodium Potassium Chloride Carbon Dioxide 32 H BUN Creatinine 0.5 L Glucose 141 H POC Glucose 130 H Lactic Acid Calcium Phosphorus Magnesium AST ALT Lactate Dehydrogenase Total Bilirubin Direct Bilirubin CK-MB (CK-2) C-Reactive Protein NT-Pro-B Natriuret Pep Total Protein Albumin Arterial Blood Glucose Arterial Blood Ionized Calcium Urine WBC (Auto) Urine Creatinine Digoxin 03/15/20 03/15/20 03/15/20 11:41 17:38 23:16 WBC RBC Hgb Hct MCHC RDW MCV MCH Lymph % (Auto) [place] % (Auto) [place] # Eos # Lymph # (Auto) [place] # (Auto) Eos # (Auto) Seg Neutrophils % Seg Neuts % (Manual) Baso # (Auto) Lymphocytes % (Manual) Monocytes % (Manual) Eosinophils % (Manual) Basophils % (Manual) Seg Neutrophils # Seg Neutrophils # Man Lymphocytes # (Manual) Monocytes # (Manual) Eosinophils # (Manual) Nucleated RBC % Basophils # (Manual) PT INR APTT Heparin Anti-Xa Level ABG pH POC ABG pO2 ABG pO2 ABG HCO3 ABG O2 Saturation ABG Base Excess POC ABG pCO2 ABG Hemoglobin ABG Oxyhemoglobin ABG Sodium ABG Chloride ABG Glucose Oxyhemoglobin Carboxyhemoglobin Sodium Potassium Chloride Carbon Dioxide BUN Creatinine Glucose POC Glucose 114 H 144 H 116 H Lactic Acid Calcium Phosphorus Magnesium AST ALT Lactate Dehydrogenase Total Bilirubin Direct Bilirubin CK-MB (CK-2) C-Reactive Protein NT-Pro-B Natriuret Pep Total Protein Albumin Arterial Blood Glucose Arterial Blood Ionized Calcium Urine WBC (Auto) Urine Creatinine Digoxin 03/16/20 03/16/20 03/16/20 05:39 13:16 18:29 WBC RBC Hgb Hct MCHC RDW MCV MCH Lymph % (Auto) [place] % (Auto) [place] # Eos # Lymph # (Auto) [place] # (Auto) Eos # (Auto) Seg Neutrophils % Seg Neuts % (Manual) Baso # (Auto) Lymphocytes % (Manual) Monocytes % (Manual) Eosinophils % (Manual) Basophils % (Manual) Seg Neutrophils # Seg Neutrophils # Man Lymphocytes # (Manual) Monocytes # (Manual) Eosinophils # (Manual) Nucleated RBC % Basophils # (Manual) PT INR APTT Heparin Anti-Xa Level ABG pH POC ABG pO2 ABG pO2 ABG HCO3 ABG O2 Saturation ABG Base Excess POC ABG pCO2 ABG Hemoglobin ABG Oxyhemoglobin ABG Sodium ABG Chloride ABG Glucose Oxyhemoglobin Carboxyhemoglobin Sodium Potassium Chloride Carbon Dioxide BUN Creatinine Glucose POC Glucose 125 H 153 H 135 H Lactic Acid Calcium Phosphorus Magnesium AST ALT Lactate Dehydrogenase Total Bilirubin Direct Bilirubin CK-MB (CK-2) C-Reactive Protein NT-Pro-B Natriuret Pep Total Protein Albumin Arterial Blood Glucose Arterial Blood Ionized Calcium Urine WBC (Auto) Urine Creatinine Digoxin 03/16/20 03/17/20 03/17/20 23:32 05:50 11:38 WBC RBC Hgb Hct MCHC RDW MCV MCH Lymph % (Auto) [place] % (Auto) [place] # Eos # Lymph # (Auto) [place] # (Auto) Eos # (Auto) Seg Neutrophils % Seg Neuts % (Manual) Baso # (Auto) Lymphocytes % (Manual) Monocytes % (Manual) Eosinophils % (Manual) Basophils % (Manual) Seg Neutrophils # Seg Neutrophils # Man Lymphocytes # (Manual) Monocytes # (Manual) Eosinophils # (Manual) Nucleated RBC % Basophils # (Manual) PT INR APTT Heparin Anti-Xa Level ABG pH POC ABG pO2 ABG pO2 ABG HCO3 ABG O2 Saturation ABG Base Excess POC ABG pCO2 ABG Hemoglobin ABG Oxyhemoglobin ABG Sodium ABG Chloride ABG Glucose Oxyhemoglobin Carboxyhemoglobin Sodium Potassium Chloride Carbon Dioxide BUN Creatinine Glucose POC Glucose 137 H 160 H 134 H Lactic Acid Calcium Phosphorus Magnesium AST ALT Lactate Dehydrogenase Total Bilirubin Direct Bilirubin CK-MB (CK-2) C-Reactive Protein NT-Pro-B Natriuret Pep Total Protein Albumin Arterial Blood Glucose Arterial Blood Ionized Calcium Urine WBC (Auto) Urine Creatinine Digoxin 03/17/20 03/17/20 03/18/20 16:59 23:29 05:39 WBC RBC Hgb Hct MCHC RDW MCV MCH Lymph % (Auto) [place] % (Auto) [place] # Eos # Lymph # (Auto) [place] # (Auto) Eos # (Auto) Seg Neutrophils % Seg Neuts % (Manual) Baso # (Auto) Lymphocytes % (Manual) Monocytes % (Manual) Eosinophils % (Manual) Basophils % (Manual) Seg Neutrophils # Seg Neutrophils # Man Lymphocytes # (Manual) Monocytes # (Manual) Eosinophils # (Manual) Nucleated RBC % Basophils # (Manual) PT INR APTT Heparin Anti-Xa Level ABG pH POC ABG pO2 ABG pO2 ABG HCO3 ABG O2 Saturation ABG Base Excess POC ABG pCO2 ABG Hemoglobin ABG Oxyhemoglobin ABG Sodium ABG Chloride ABG Glucose Oxyhemoglobin Carboxyhemoglobin Sodium Potassium Chloride Carbon Dioxide BUN Creatinine Glucose POC Glucose 120 H 141 H 181 H Lactic Acid Calcium Phosphorus Magnesium AST ALT Lactate Dehydrogenase Total Bilirubin Direct Bilirubin CK-MB (CK-2) C-Reactive Protein NT-Pro-B Natriuret Pep Total Protein Albumin Arterial Blood Glucose Arterial Blood Ionized Calcium Urine WBC (Auto) Urine Creatinine Digoxin 03/18/20 03/18/20 03/18/20 11:18 15:34 17:42 WBC RBC Hgb Hct MCHC RDW MCV MCH Lymph % (Auto) [place] % (Auto) [place] # Eos # Lymph # (Auto) [place] # (Auto) Eos # (Auto) Seg Neutrophils % Seg Neuts % (Manual) Baso # (Auto) Lymphocytes % (Manual) Monocytes % (Manual) Eosinophils % (Manual) Basophils % (Manual) Seg Neutrophils # Seg Neutrophils # Man Lymphocytes # (Manual) Monocytes # (Manual) Eosinophils # (Manual) Nucleated RBC % Basophils # (Manual) PT INR APTT Heparin Anti-Xa Level ABG pH POC ABG pO2 ABG pO2 ABG HCO3 ABG O2 Saturation ABG Base Excess POC ABG pCO2 ABG Hemoglobin ABG Oxyhemoglobin ABG Sodium ABG Chloride ABG Glucose Oxyhemoglobin Carboxyhemoglobin Sodium 132 L Potassium 5.4 H D Chloride 96.8 L Carbon Dioxide BUN 24 H Creatinine 0.6 L Glucose 164 H POC Glucose 142 H 118 H Lactic Acid Calcium Phosphorus Magnesium AST ALT Lactate Dehydrogenase Total Bilirubin Direct Bilirubin CK-MB (CK-2) C-Reactive Protein NT-Pro-B Natriuret Pep Total Protein 6.2 L Albumin 2.8 L Arterial Blood Glucose Arterial Blood Ionized Calcium Urine WBC (Auto) Urine Creatinine Digoxin 03/18/20 03/19/20 03/19/20 23:57 05:40 07:50 WBC RBC Hgb Hct MCHC RDW MCV MCH Lymph % (Auto) [place] % (Auto) [place] # Eos # Lymph # (Auto) [place] # (Auto) Eos # (Auto) Seg Neutrophils % Seg Neuts % (Manual) Baso # (Auto) Lymphocytes % (Manual) Monocytes % (Manual) Eosinophils % (Manual) Basophils % (Manual) Seg Neutrophils # Seg Neutrophils # Man Lymphocytes # (Manual) Monocytes # (Manual) Eosinophils # (Manual) Nucleated RBC % Basophils # (Manual) PT INR APTT Heparin Anti-Xa Level ABG pH POC ABG pO2 ABG pO2 ABG HCO3 ABG O2 Saturation ABG Base Excess POC ABG pCO2 ABG Hemoglobin ABG Oxyhemoglobin ABG Sodium ABG Chloride ABG Glucose Oxyhemoglobin Carboxyhemoglobin Sodium 136 L Potassium Chloride 97.3 L Carbon Dioxide 31 H BUN 22 H Creatinine 0.5 L Glucose 160 H POC Glucose 127 H 136 H Lactic Acid Calcium Phosphorus Magnesium AST ALT Lactate Dehydrogenase Total Bilirubin Direct Bilirubin CK-MB (CK-2) C-Reactive Protein NT-Pro-B Natriuret Pep Total Protein Albumin Arterial Blood Glucose Arterial Blood Ionized Calcium Urine WBC (Auto) Urine Creatinine Digoxin 03/19/20 03/19/20 03/20/20 12:21 17:27 00:31 WBC RBC Hgb Hct MCHC RDW MCV MCH Lymph % (Auto) [place] % (Auto) [place] # Eos # Lymph # (Auto) [place] # (Auto) Eos # (Auto) Seg Neutrophils % Seg Neuts % (Manual) Baso # (Auto) Lymphocytes % (Manual) Monocytes % (Manual) Eosinophils % (Manual) Basophils % (Manual) Seg Neutrophils # Seg Neutrophils # Man Lymphocytes # (Manual) Monocytes # (Manual) Eosinophils # (Manual) Nucleated RBC % Basophils # (Manual) PT INR APTT Heparin Anti-Xa Level ABG pH POC ABG pO2 ABG pO2 ABG HCO3 ABG O2 Saturation ABG Base Excess POC ABG pCO2 ABG Hemoglobin ABG Oxyhemoglobin ABG Sodium ABG Chloride ABG Glucose Oxyhemoglobin Carboxyhemoglobin Sodium Potassium Chloride Carbon Dioxide BUN Creatinine Glucose POC Glucose 147 H 152 H 132 H Lactic Acid Calcium Phosphorus Magnesium AST ALT Lactate Dehydrogenase Total Bilirubin Direct Bilirubin CK-MB (CK-2) C-Reactive Protein NT-Pro-B Natriuret Pep Total Protein Albumin Arterial Blood Glucose Arterial Blood Ionized Calcium Urine WBC (Auto) Urine Creatinine Digoxin 03/20/20 03/20/20 03/20/20 05:59 11:45 17:24 WBC RBC Hgb Hct MCHC RDW MCV MCH Lymph % (Auto) [place] % (Auto) [place] # Eos # Lymph # (Auto) [place] # (Auto) Eos # (Auto) Seg Neutrophils % Seg Neuts % (Manual) Baso # (Auto) Lymphocytes % (Manual) Monocytes % (Manual) Eosinophils % (Manual) Basophils % (Manual) Seg Neutrophils # Seg Neutrophils # Man Lymphocytes # (Manual) Monocytes # (Manual) Eosinophils # (Manual) Nucleated RBC % Basophils # (Manual) PT INR APTT Heparin Anti-Xa Level ABG pH POC ABG pO2 ABG pO2 ABG HCO3 ABG O2 Saturation ABG Base Excess POC ABG pCO2 ABG Hemoglobin ABG Oxyhemoglobin ABG Sodium ABG Chloride ABG Glucose Oxyhemoglobin Carboxyhemoglobin Sodium Potassium Chloride Carbon Dioxide BUN Creatinine Glucose POC Glucose 146 H 142 H 107 H Lactic Acid Calcium Phosphorus Magnesium AST ALT Lactate Dehydrogenase Total Bilirubin Direct Bilirubin CK-MB (CK-2) C-Reactive Protein NT-Pro-B Natriuret Pep Total Protein Albumin Arterial Blood Glucose Arterial Blood Ionized Calcium Urine WBC (Auto) Urine Creatinine Digoxin 03/20/20 03/21/20 03/21/20 23:38 05:38 11:22 WBC RBC Hgb Hct MCHC RDW MCV MCH Lymph % (Auto) [place] % (Auto) [place] # Eos # Lymph # (Auto) [place] # (Auto) Eos # (Auto) Seg Neutrophils % Seg Neuts % (Manual) Baso # (Auto) Lymphocytes % (Manual) Monocytes % (Manual) Eosinophils % (Manual) Basophils % (Manual) Seg Neutrophils # Seg Neutrophils # Man Lymphocytes # (Manual) Monocytes # (Manual) Eosinophils # (Manual) Nucleated RBC % Basophils # (Manual) PT INR APTT Heparin Anti-Xa Level ABG pH POC ABG pO2 ABG pO2 ABG HCO3 ABG O2 Saturation ABG Base Excess POC ABG pCO2 ABG Hemoglobin ABG Oxyhemoglobin ABG Sodium ABG Chloride ABG Glucose Oxyhemoglobin Carboxyhemoglobin Sodium Potassium Chloride Carbon Dioxide BUN Creatinine Glucose POC Glucose 115 H 133 H 137 H Lactic Acid Calcium Phosphorus Magnesium AST ALT Lactate Dehydrogenase Total Bilirubin Direct Bilirubin CK-MB (CK-2) C-Reactive Protein NT-Pro-B Natriuret Pep Total Protein Albumin Arterial Blood Glucose Arterial Blood Ionized Calcium Urine WBC (Auto) Urine Creatinine Digoxin 03/21/20 03/22/20 03/22/20 18:26 00:10 05:29 WBC RBC Hgb Hct MCHC RDW MCV MCH Lymph % (Auto) [place] % (Auto) [place] # Eos # Lymph # (Auto) [place] # (Auto) Eos # (Auto) Seg Neutrophils % Seg Neuts % (Manual) Baso # (Auto) Lymphocytes % (Manual) Monocytes % (Manual) Eosinophils % (Manual) Basophils % (Manual) Seg Neutrophils # Seg Neutrophils # Man Lymphocytes # (Manual) Monocytes # (Manual) Eosinophils # (Manual) Nucleated RBC % Basophils # (Manual) PT INR APTT Heparin Anti-Xa Level ABG pH POC ABG pO2 ABG pO2 ABG HCO3 ABG O2 Saturation ABG Base Excess POC ABG pCO2 ABG Hemoglobin ABG Oxyhemoglobin ABG Sodium ABG Chloride ABG Glucose Oxyhemoglobin Carboxyhemoglobin Sodium Potassium Chloride Carbon Dioxide BUN Creatinine Glucose POC Glucose 200 H 123 H 156 H Lactic Acid Calcium Phosphorus Magnesium AST ALT Lactate Dehydrogenase Total Bilirubin Direct Bilirubin CK-MB (CK-2) C-Reactive Protein NT-Pro-B Natriuret Pep Total Protein Albumin Arterial Blood Glucose Arterial Blood Ionized Calcium Urine WBC (Auto) Urine Creatinine Digoxin 03/22/20 03/22/20 03/22/20 06:39 06:39 06:39 WBC RBC Hgb 9.7 L Hct 30.7 L MCHC RDW 22.2 H MCV 77 L MCH 25 L Lymph % (Auto) [place] % (Auto) 9.0 H [place] # Eos # Lymph # (Auto) [place] # (Auto) Eos # (Auto) Seg Neutrophils % Seg Neuts % (Manual) Baso # (Auto) Lymphocytes % (Manual) Monocytes % (Manual) Eosinophils % (Manual) Basophils % (Manual) Seg Neutrophils # Seg Neutrophils # Man Lymphocytes # (Manual) Monocytes # (Manual) Eosinophils # (Manual) Nucleated RBC % Basophils # (Manual) PT INR APTT Heparin Anti-Xa Level ABG pH POC ABG pO2 ABG pO2 ABG HCO3 ABG O2 Saturation ABG Base Excess POC ABG pCO2 ABG Hemoglobin ABG Oxyhemoglobin ABG Sodium ABG Chloride ABG Glucose Oxyhemoglobin Carboxyhemoglobin Sodium Potassium Chloride Carbon Dioxide 33 H BUN Creatinine 0.5 L Glucose 147 H POC Glucose Lactic Acid Calcium Phosphorus Magnesium AST ALT Lactate Dehydrogenase Total Bilirubin Direct Bilirubin CK-MB (CK-2) C-Reactive Protein NT-Pro-B Natriuret Pep Total Protein Albumin Arterial Blood Glucose Arterial Blood Ionized Calcium Urine WBC (Auto) Urine Creatinine Digoxin 0.8 L 03/22/20 03/22/20 03/22/20 11:22 17:49 23:38 WBC RBC Hgb Hct MCHC RDW MCV MCH Lymph % (Auto) [place] % (Auto) [place] # Eos # Lymph # (Auto) [place] # (Auto) Eos # (Auto) Seg Neutrophils % Seg Neuts % (Manual) Baso # (Auto) Lymphocytes % (Manual) Monocytes % (Manual) Eosinophils % (Manual) Basophils % (Manual) Seg Neutrophils # Seg Neutrophils # Man Lymphocytes # (Manual) Monocytes # (Manual) Eosinophils # (Manual) Nucleated RBC % Basophils # (Manual) PT INR APTT Heparin Anti-Xa Level ABG pH POC ABG pO2 ABG pO2 ABG HCO3 ABG O2 Saturation ABG Base Excess POC ABG pCO2 ABG Hemoglobin ABG Oxyhemoglobin ABG Sodium ABG Chloride ABG Glucose Oxyhemoglobin Carboxyhemoglobin Sodium Potassium Chloride Carbon Dioxide BUN Creatinine Glucose POC Glucose 159 H 119 H 129 H Lactic Acid Calcium Phosphorus Magnesium AST ALT Lactate Dehydrogenase Total Bilirubin Direct Bilirubin CK-MB (CK-2) C-Reactive Protein NT-Pro-B Natriuret Pep Total Protein Albumin Arterial Blood Glucose Arterial Blood Ionized Calcium Urine WBC (Auto) Urine Creatinine Digoxin 03/23/20 03/23/20 03/23/20 05:02 11:38 17:01 WBC RBC Hgb Hct MCHC RDW MCV MCH Lymph % (Auto) [place] % (Auto) [place] # Eos # Lymph # (Auto) [place] # (Auto) Eos # (Auto) Seg Neutrophils % Seg Neuts % (Manual) Baso # (Auto) Lymphocytes % (Manual) Monocytes % (Manual) Eosinophils % (Manual) Basophils % (Manual) Seg Neutrophils # Seg Neutrophils # Man Lymphocytes # (Manual) Monocytes # (Manual) Eosinophils # (Manual) Nucleated RBC % Basophils # (Manual) PT INR APTT Heparin Anti-Xa Level ABG pH POC ABG pO2 ABG pO2 ABG HCO3 ABG O2 Saturation ABG Base Excess POC ABG pCO2 ABG Hemoglobin ABG Oxyhemoglobin ABG Sodium ABG Chloride ABG Glucose Oxyhemoglobin Carboxyhemoglobin Sodium Potassium Chloride Carbon Dioxide BUN Creatinine Glucose POC Glucose 136 H 129 H 122 H Lactic Acid Calcium Phosphorus Magnesium AST ALT Lactate Dehydrogenase Total Bilirubin Direct Bilirubin CK-MB (CK-2) C-Reactive Protein NT-Pro-B Natriuret Pep Total Protein Albumin Arterial Blood Glucose Arterial Blood Ionized Calcium Urine WBC (Auto) Urine Creatinine Digoxin 03/23/20 03/24/20 03/24/20 23:35 06:55 11:43 WBC RBC Hgb Hct MCHC RDW MCV MCH Lymph % (Auto) [place] % (Auto) [place] # Eos # Lymph # (Auto) [place] # (Auto) Eos # (Auto) Seg Neutrophils % Seg Neuts % (Manual) Baso # (Auto) Lymphocytes % (Manual) Monocytes % (Manual) Eosinophils % (Manual) Basophils % (Manual) Seg Neutrophils # Seg Neutrophils # Man Lymphocytes # (Manual) Monocytes # (Manual) Eosinophils # (Manual) Nucleated RBC % Basophils # (Manual) PT INR APTT Heparin Anti-Xa Level ABG pH POC ABG pO2 ABG pO2 ABG HCO3 ABG O2 Saturation ABG Base Excess POC ABG pCO2 ABG Hemoglobin ABG Oxyhemoglobin ABG Sodium ABG Chloride ABG Glucose Oxyhemoglobin Carboxyhemoglobin Sodium Potassium Chloride Carbon Dioxide BUN Creatinine Glucose POC Glucose 115 H 122 H 135 H Lactic Acid Calcium Phosphorus Magnesium AST ALT Lactate Dehydrogenase Total Bilirubin Direct Bilirubin CK-MB (CK-2) C-Reactive Protein NT-Pro-B Natriuret Pep Total Protein Albumin Arterial Blood Glucose Arterial Blood Ionized Calcium Urine WBC (Auto) Urine Creatinine Digoxin 03/24/20 03/24/20 03/25/20 17:18 23:27 05:45 WBC RBC Hgb Hct MCHC RDW MCV MCH Lymph % (Auto) [place] % (Auto) [place] # Eos # Lymph # (Auto) [place] # (Auto) Eos # (Auto) Seg Neutrophils % Seg Neuts % (Manual) Baso # (Auto) Lymphocytes % (Manual) Monocytes % (Manual) Eosinophils % (Manual) Basophils % (Manual) Seg Neutrophils # Seg Neutrophils # Man Lymphocytes # (Manual) Monocytes # (Manual) Eosinophils # (Manual) Nucleated RBC % Basophils # (Manual) PT INR APTT Heparin Anti-Xa Level ABG pH POC ABG pO2 ABG pO2 ABG HCO3 ABG O2 Saturation ABG Base Excess POC ABG pCO2 ABG Hemoglobin ABG Oxyhemoglobin ABG Sodium ABG Chloride ABG Glucose Oxyhemoglobin Carboxyhemoglobin Sodium Potassium Chloride Carbon Dioxide BUN Creatinine Glucose POC Glucose 125 H 124 H 176 H Lactic Acid Calcium Phosphorus Magnesium AST ALT Lactate Dehydrogenase Total Bilirubin Direct Bilirubin CK-MB (CK-2) C-Reactive Protein NT-Pro-B Natriuret Pep Total Protein Albumin Arterial Blood Glucose Arterial Blood Ionized Calcium Urine WBC (Auto) Urine Creatinine Digoxin 03/25/20 03/25/20 03/26/20 11:15 17:00 00:12 WBC RBC Hgb Hct MCHC RDW MCV MCH Lymph % (Auto) [place] % (Auto) [place] # Eos # Lymph # (Auto) [place] # (Auto) Eos # (Auto) Seg Neutrophils % Seg Neuts % (Manual) Baso # (Auto) Lymphocytes % (Manual) Monocytes % (Manual) Eosinophils % (Manual) Basophils % (Manual) Seg Neutrophils # Seg Neutrophils # Man Lymphocytes # (Manual) Monocytes # (Manual) Eosinophils # (Manual) Nucleated RBC % Basophils # (Manual) PT INR APTT Heparin Anti-Xa Level ABG pH POC ABG pO2 ABG pO2 ABG HCO3 ABG O2 Saturation ABG Base Excess POC ABG pCO2 ABG Hemoglobin ABG Oxyhemoglobin ABG Sodium ABG Chloride ABG Glucose Oxyhemoglobin Carboxyhemoglobin Sodium Potassium Chloride Carbon Dioxide BUN Creatinine Glucose POC Glucose 147 H 111 H 115 H Lactic Acid Calcium Phosphorus Magnesium AST ALT Lactate Dehydrogenase Total Bilirubin Direct Bilirubin CK-MB (CK-2) C-Reactive Protein NT-Pro-B Natriuret Pep Total Protein Albumin Arterial Blood Glucose Arterial Blood Ionized Calcium Urine WBC (Auto) Urine Creatinine Digoxin 03/26/20 03/26/20 03/26/20 04:20 05:28 16:21 WBC RBC Hgb Hct MCHC RDW MCV MCH Lymph % (Auto) [place] % (Auto) [place] # Eos # Lymph # (Auto) [place] # (Auto) Eos # (Auto) Seg Neutrophils % Seg Neuts % (Manual) Baso # (Auto) Lymphocytes % (Manual) Monocytes % (Manual) Eosinophils % (Manual) Basophils % (Manual) Seg Neutrophils # Seg Neutrophils # Man Lymphocytes # (Manual) Monocytes # (Manual) Eosinophils # (Manual) Nucleated RBC % Basophils # (Manual) PT INR APTT Heparin Anti-Xa Level ABG pH POC ABG pO2 ABG pO2 ABG HCO3 ABG O2 Saturation ABG Base Excess POC ABG pCO2 ABG Hemoglobin ABG Oxyhemoglobin ABG Sodium ABG Chloride ABG Glucose Oxyhemoglobin Carboxyhemoglobin Sodium Potassium Chloride Carbon Dioxide BUN Creatinine 0.6 L Glucose 182 H POC Glucose 158 H 137 H Lactic Acid Calcium Phosphorus Magnesium AST ALT Lactate Dehydrogenase Total Bilirubin Direct Bilirubin CK-MB (CK-2) C-Reactive Protein NT-Pro-B Natriuret Pep Total Protein Albumin Arterial Blood Glucose Arterial Blood Ionized Calcium Urine WBC (Auto) Urine Creatinine Digoxin 03/27/20 03/27/20 03/27/20 00:22 05:49 11:16 WBC RBC Hgb Hct MCHC RDW MCV MCH Lymph % (Auto) [place] % (Auto) [place] # Eos # Lymph # (Auto) [place] # (Auto) Eos # (Auto) Seg Neutrophils % Seg Neuts % (Manual) Baso # (Auto) Lymphocytes % (Manual) Monocytes % (Manual) Eosinophils % (Manual) Basophils % (Manual) Seg Neutrophils # Seg Neutrophils # Man Lymphocytes # (Manual) Monocytes # (Manual) Eosinophils # (Manual) Nucleated RBC % Basophils # (Manual) PT INR APTT Heparin Anti-Xa Level ABG pH POC ABG pO2 ABG pO2 ABG HCO3 ABG O2 Saturation ABG Base Excess POC ABG pCO2 ABG Hemoglobin ABG Oxyhemoglobin ABG Sodium ABG Chloride ABG Glucose Oxyhemoglobin Carboxyhemoglobin Sodium Potassium Chloride Carbon Dioxide BUN Creatinine Glucose POC Glucose 155 H 117 H 139 H Lactic Acid Calcium Phosphorus Magnesium AST ALT Lactate Dehydrogenase Total Bilirubin Direct Bilirubin CK-MB (CK-2) C-Reactive Protein NT-Pro-B Natriuret Pep Total Protein Albumin Arterial Blood Glucose Arterial Blood Ionized Calcium Urine WBC (Auto) Urine Creatinine Digoxin 03/27/20 03/27/20 03/28/20 17:23 23:23 05:36 WBC RBC Hgb Hct MCHC RDW MCV MCH Lymph % (Auto) [place] % (Auto) [place] # Eos # Lymph # (Auto) [place] # (Auto) Eos # (Auto) Seg Neutrophils % Seg Neuts % (Manual) Baso # (Auto) Lymphocytes % (Manual) Monocytes % (Manual) Eosinophils % (Manual) Basophils % (Manual) Seg Neutrophils # Seg Neutrophils # Man Lymphocytes # (Manual) Monocytes # (Manual) Eosinophils # (Manual) Nucleated RBC % Basophils # (Manual) PT INR APTT Heparin Anti-Xa Level ABG pH POC ABG pO2 ABG pO2 ABG HCO3 ABG O2 Saturation ABG Base Excess POC ABG pCO2 ABG Hemoglobin ABG Oxyhemoglobin ABG Sodium ABG Chloride ABG Glucose Oxyhemoglobin Carboxyhemoglobin Sodium Potassium Chloride Carbon Dioxide BUN Creatinine Glucose POC Glucose 130 H 137 H 167 H Lactic Acid Calcium Phosphorus Magnesium AST ALT Lactate Dehydrogenase Total Bilirubin Direct Bilirubin CK-MB (CK-2) C-Reactive Protein NT-Pro-B Natriuret Pep Total Protein Albumin Arterial Blood Glucose Arterial Blood Ionized Calcium Urine WBC (Auto) Urine Creatinine Digoxin 03/28/20 03/28/20 03/28/20 12:28 17:54 23:40 WBC RBC Hgb Hct MCHC RDW MCV MCH Lymph % (Auto) [place] % (Auto) [place] # Eos # Lymph # (Auto) [place] # (Auto) Eos # (Auto) Seg Neutrophils % Seg Neuts % (Manual) Baso # (Auto) Lymphocytes % (Manual) Monocytes % (Manual) Eosinophils % (Manual) Basophils % (Manual) Seg Neutrophils # Seg Neutrophils # Man Lymphocytes # (Manual) Monocytes # (Manual) Eosinophils # (Manual) Nucleated RBC % Basophils # (Manual) PT INR APTT Heparin Anti-Xa Level ABG pH POC ABG pO2 ABG pO2 ABG HCO3 ABG O2 Saturation ABG Base Excess POC ABG pCO2 ABG Hemoglobin ABG Oxyhemoglobin ABG Sodium ABG Chloride ABG Glucose Oxyhemoglobin Carboxyhemoglobin Sodium Potassium Chloride Carbon Dioxide BUN Creatinine Glucose POC Glucose 128 H 126 H 111 H Lactic Acid Calcium Phosphorus Magnesium AST ALT Lactate Dehydrogenase Total Bilirubin Direct Bilirubin CK-MB (CK-2) C-Reactive Protein NT-Pro-B Natriuret Pep Total Protein Albumin Arterial Blood Glucose Arterial Blood Ionized Calcium Urine WBC (Auto) Urine Creatinine Digoxin 03/29/20 03/29/20 03/29/20 05:56 11:19 18:21 WBC RBC Hgb Hct MCHC RDW MCV MCH Lymph % (Auto) [place] % (Auto) [place] # Eos # Lymph # (Auto) [place] # (Auto) Eos # (Auto) Seg Neutrophils % Seg Neuts % (Manual) Baso # (Auto) Lymphocytes % (Manual) Monocytes % (Manual) Eosinophils % (Manual) Basophils % (Manual) Seg Neutrophils # Seg Neutrophils # Man Lymphocytes # (Manual) Monocytes # (Manual) Eosinophils # (Manual) Nucleated RBC % Basophils # (Manual) PT INR APTT Heparin Anti-Xa Level ABG pH POC ABG pO2 ABG pO2 ABG HCO3 ABG O2 Saturation ABG Base Excess POC ABG pCO2 ABG Hemoglobin ABG Oxyhemoglobin ABG Sodium ABG Chloride ABG Glucose Oxyhemoglobin Carboxyhemoglobin Sodium Potassium Chloride Carbon Dioxide BUN Creatinine Glucose POC Glucose 118 H 110 H 142 H Lactic Acid Calcium Phosphorus Magnesium AST ALT Lactate Dehydrogenase Total Bilirubin Direct Bilirubin CK-MB (CK-2) C-Reactive Protein NT-Pro-B Natriuret Pep Total Protein Albumin Arterial Blood Glucose Arterial Blood Ionized Calcium Urine WBC (Auto) Urine Creatinine Digoxin 03/29/20 03/29/20 03/30/20 21:00 23:35 05:11 WBC RBC Hgb Hct MCHC RDW MCV MCH Lymph % (Auto) [place] % (Auto) [place] # Eos # Lymph # (Auto) [place] # (Auto) Eos # (Auto) Seg Neutrophils % Seg Neuts % (Manual) Baso # (Auto) Lymphocytes % (Manual) Monocytes % (Manual) Eosinophils % (Manual) Basophils % (Manual) Seg Neutrophils # Seg Neutrophils # Man Lymphocytes # (Manual) Monocytes # (Manual) Eosinophils # (Manual) Nucleated RBC % Basophils # (Manual) PT INR APTT Heparin Anti-Xa Level ABG pH 7.565 H POC ABG pO2 66.8 L ABG pO2 ABG HCO3 ABG O2 Saturation ABG Base Excess POC ABG pCO2 ABG Hemoglobin 10.6 L ABG Oxyhemoglobin 92.6 L ABG Sodium 134.8 L ABG Chloride ABG Glucose 174 H Oxyhemoglobin Carboxyhemoglobin 1.8 H Sodium Potassium Chloride Carbon Dioxide BUN Creatinine Glucose POC Glucose 145 H 172 H Lactic Acid Calcium Phosphorus Magnesium AST ALT Lactate Dehydrogenase Total Bilirubin Direct Bilirubin CK-MB (CK-2) C-Reactive Protein NT-Pro-B Natriuret Pep Total Protein Albumin Arterial Blood Glucose 174 H Arterial Blood Ionized Calcium 4.5 L Urine WBC (Auto) Urine Creatinine Digoxin Allied health notes reviewed: nursing
[2020-03-31] MEDS: INSULIN REGULAR, HUMAN 100 UNIT/ML 3ML VIAL SUB-Q SCH ×4 (00:51→23:48)
[2020-03-31] MEDS: ACETAMINOPHEN 325 MG/10.15 ML ORAL LIQD UNIT DOSE FEEDTUBE PRN (02:24)
[2020-03-31] MEDS: ALPRAZolam 0.5 MG TAB PO PRN (02:24)
[2020-03-31] MEDS: METOPROLOL TARTRATE 25 MG TAB FEEDTUBE SCH ×3 (02:27→23:51)
[2020-03-31 04:43] LABS: Basophils # (Auto) 0.1 K/mm3 (0.0-0.1); Basophils % (Auto) 0.9 % (0.0-1.8); Eosinophils # (Auto) 0.2 K/mm3 (0.0-0.4); Eosinophils % (Auto) 1.9 % (0.0-4.3); Hematocrit 32.6 % (35.5-45.6); Hemoglobin 10.2 gm/dl (11.8-15.2); Lymphocytes # (Auto) 2.1 K/mm3 (1.2-5.4); Lymphocytes % (Auto) 23.3 % (13.4-35.0); Mean Corpuscular HGB Conc 31 % (32-34); Mean Corpuscular Volume 77 fl (84-94); Platelet Count 217 K/mm3 (140-440); Red Blood Count 4.21 M/mm3 (3.65-5.03)
[2020-03-31 04:44] LABS: Red Cell Distribution Width 21.9 % (13.2-15.2)
[2020-03-31 05:05] LABS: Alanine Aminotransferase 12 units/L (7-56); Albumin 2.9 g/dL (3.9-5); Blood Urea Nitrogen 16 mg/dL (9-20); Calcium 9.3 mg/dL (8.4-10.2); Hemolysis Index 1
[2020-03-31 05:07] LABS: BUN/Creatinine Ratio 27
--- NOTE | 2020-03-31 09:01 | Progress Note ---
Assessment and Plan Assessment and plan: Patient is off ventilator, tracheostomy on T-piece --Paroxysmal atrial fibrillation; with rapid ventricular rate Continue digoxin, beta-blockers, supportive care Increase metoprolol dose from 12.5 to 25 mg twice daily as tolerated On chronic anticoagulation Eliquis Cardiology following --Acute on chronic hypoxemic respiratory failure; Patient has tracheostomy weaned off vent On T-piece, 15 L of oxygen Pulmonary critical following --Acute exacerbation of COPD; Patient is currently on T-piece Continue nebulizers --Left lower lobe PE; Continue Eliquis, ventilatory support --Acute right lower extremity DVT; Patient is on Eliquis --Bilateral multifocal pneumonia/community-acquired Completed antibiotics, improved --Severe sepsis/bilateral pneumonia: Completed antibiotics COVID-19 test; 11/24/2019; negative 11/26/2019; negative 12/29/2019: Negative --Acute on chronic combined systolic and diastolic congestive heart failure Ischemic cardiomyopathy left ventricular ejection fraction 40 to 45% --H/o CAD [[facility] 12/2018 in-stent restenosis] Patient is stable on current cardiac medications --Hypertensive emergency; present on admission Reasonable blood pressures, continue current antihypertensives As needed medications --History of alcohol abuse/alcohol withdrawal; Was on CIWA protocol, now stable --Oropharyngeal dysphagia; status post PEG placement Continue PEG feeds per protocol --History of partial small bowel obstruction; resolved Surgery evaluated. --Obesity; BMI 34.7 Patient needs weight reduction when medically stable --Severe protein calorie malnutrition/hypoalbuminemia Nutrition supplements, dietitian following, PEG feeds --DVT prophylaxis;Eliquis --Full CODE STATUS DC planning per case management, hospice is evaluating the patient We will closely monitor the patient and adjust management as needed Plan of care reviewed with the patient and his nurse 03/19/2020. Continue current vent per pulmonary recommendations. Pressure support ventilation trials as tolerated. Continue trach care, secretion control and airway management. Mobility protocols for pressure ulcer prophylaxis. 03/20/2020. Rate better controlled on digoxin and metoprolol per cardiology. P atient currently off amiodarone due to elevated liver enzymes. Continue anticoagulation with Eliquis. IV metoprolol as needed. No statins for now secondary to elevated liver enzymes. Patient remains on AC mode ventilation rate 12, tidal volume 450, FiO2 30% and PEEP of 6. Cont. PSV as figueroa. Continue trach care, secretion control and airway management. Mobility protocols for pressure ulcer prophylaxis. Patient is uninsured and his only d/c option is to return home with family. 03/21/2020. Patient still with elevated heart rate but better on digoxin and metoprolol per cardiology. Patient currently off amiodarone due to elevated liver enzymes. Continue anticoagulation with Eliquis. IV metoprolol as needed. No statins for now secondary to elevated liver enzymes. Patient remains on AC mode mechanical ventilation with rate 12, tidal volume 450, FiO2 30% and PEEP of 6. Continue PSV trials as tolerated. Continue trach care, secretion control and airway management. Mobility protocols for pressure ulcer prophylaxis. Patient is uninsured and his only d/c option is to return home with family. 03/22/2020; patient remains on ventilatory support, continue to wean as tolerated, trach care Awaiting LTAC placement, however patient has multiple social issues, mobility protocols blood pressure ulcers DVT prophylaxis, will continue current management 03/23/2020; patient remains on ventilatory support, tracheostomy, on CPAP trial 03/25/2020; patient with tracheostomy remains on ventilatory support, complains of mild nausea 03/26/2020; clinically no change, tracheostomy on vent, unable to wean 03/27/2020; remains on ventilatory support, wean as tolerated, social issues, awaiting placement 03/28/2020; wean off vent as tolerated, awaiting LTAC placement, multiple social issues 03/29/2020; patient is off vent, tracheostomy on T-piece 15 L of oxygen closely monitor 03/30/2020; patient is weaned off ventilator, on T-piece feeling much better 03/31/2020; patient continues to have intermittent A. fib with rapid ventricular rate, on digoxin metoprolol Eliquis, increase metoprolol dose from 12.5 to 25 mg twice a day as tolerated, cardiology following Off ventilator, on T-piece 15 L of oxygen Plan of care reviewed with the patient and his nurse The high probability of a clinically significant, sudden or life threatening deterioration of the [Respiratory, cardiovascular & neurological] system(s) required my full and direct attention, intervention and personal management. The aggregate critical care time was [35] minutes without overlap. Time includes spent on [x] Data Review and interpretation [x] Patient assessment and monitoring of vital signs [x] Documentation [x] Medication orders and management Plan of care reviewed with the patient and his nurse History Interval history: I have have seen and examined the patient at the bedside Patient chronic tracheostomy on T-piece Mild anxiety, Denies chest pain or shortness of breath Vital signs noted Hospitalist Physical - Constitutional Vitals: Temp Pulse Resp BP Pulse Ox 97.7 F 120 H 22 128/90 100 03/31/20 08:00 03/31/20 07:30 03/31/20 07:30 03/31/20 07:30 03/31/20 07:30 General appearance: Present: no acute distress, well-nourished, other (Tracheostomy on T-piece) - EENT Eyes: Present: PERRL, EOM intact ENT: other (Tracheostomy AAA) - Neck Neck: Present: supple, normal ROM - Respiratory Respiratory effort: normal Respiratory: bilateral: diminished, negative: rales, rhonchi, wheezing - Cardiovascular Rhythm: regular Heart Sounds: Present: S1 & S2 - Extremities Extremities: no ischemia, No edema - Abdominal General gastrointestinal: soft, non-tender, non-distended, normal bowel sounds, other (PEG tube in place) - Integumentary Integumentary: Present: clear, warm - Psychiatric Psychiatric: appropriate mood/affect, cooperative - Neurologic Neurologic: moves all extremities HEART Score - HEART Score Troponin: Troponin T < 0.010 ng/mL (0.00-0.029) 01/19/20 01:35 Results - Labs CBC & Chem 7: 03/31/20 04:13 03/31/20 04:13 Labs: Laboratory Last Values WBC 8.8 K/mm3 (4.5-11.0) 03/31/20 04:13 RBC 4.21 M/mm3 (3.65-5.03) 03/31/20 04:13 Hgb 10.2 gm/dl (11.8-15.2) L 03/31/20 04:13 Hct 32.6 % (35.5-45.6) L 03/31/20 04:13 MCV 77 fl (84-94) L 03/31/20 04:13 MCH 24 pg (28-32) L 03/31/20 04:13 MCHC 31 % (32-34) L 03/31/20 04:13 RDW 21.9 % (13.2-15.2) H 03/31/20 04:13 Plt Count 217 K/mm3 (140-440) 03/31/20 04:13 Lymph % (Auto) 23.3 % (13.4-35.0) 03/31/20 04:13 [place] % (Auto) 11.0 % (0.0-7.3) H 03/31/20 04:13 Eos % (Auto) 1.9 % (0.0-4.3) 03/31/20 04:13 Baso % (Auto) 0.9 % (0.0-1.8) 03/31/20 04:13 Lymph # (Auto) 2.1 K/mm3 (1.2-5.4) 03/31/20 04:13 [place] # (Auto) 1.0 K/mm3 (0.0-0.8) H 03/31/20 04:13 Eos # (Auto) 0.2 K/mm3 (0.0-0.4) 03/31/20 04:13 Baso # (Auto) 0.1 K/mm3 (0.0-0.1) 03/31/20 04:13 Add Manual Diff Complete 02/15/20 06:59 Total Counted 100 02/15/20 06:59 Seg Neuts % (Manual) 58.0 % (40.0-70.0) 02/15/20 06:59 Band Neutrophils % 0 % 02/15/20 06:59 Seg Neutrophils % 62.9 % (40.0-70.0) 03/31/20 04:13 Lymphocytes % (Manual) 34.0 % (13.4-35.0) 02/15/20 06:59 Reactive Lymphs % (Man) 1.0 % 02/15/20 06:59 Monocytes % (Manual) 4.0 % (0.0-7.3) 02/15/20 06:59 Eosinophils % (Manual) 0 % (0.0-4.3) 02/15/20 06:59 Basophils % (Manual) 2.0 % (0.0-1.8) H 02/15/20 06:59 Metamyelocytes % 1.0 % 02/15/20 06:59 Myelocytes % 0 % 02/15/20 06:59 Promyelocytes % 0 % 02/15/20 06:59 Blast Cells % 0 % 02/15/20 06:59 Nucleated RBC % 1.0 % (0.0-0.9) H 02/15/20 06:59 Seg Neutrophils # Man 5.9 K/mm3 (1.8-7.7) 02/15/20 06:59 Seg Neutrophils # 5.5 K/mm3 (1.8-7.7) 03/31/20 04:13 Band Neutrophils # 0.0 K/mm3 02/15/20 06:59 Lymphocytes # (Manual) 3.5 K/mm3 (1.2-5.4) 02/15/20 06:59 Abs React Lymphs (Man) 0.1 K/mm3 02/15/20 06:59 Monocytes # (Manual) 0.4 K/mm3 (0.0-0.8) 02/15/20 06:59 Eosinophils # (Manual) 0.0 K/mm3 (0.0-0.4) 02/15/20 06:59 Basophils # (Manual) 0.2 K/mm3 (0.0-0.1) H 02/15/20 06:59 Metamyelocytes # 0.1 K/mm3 02/15/20 06:59 Myelocytes # 0.0 K/mm3 02/15/20 06:59 Promyelocytes # 0.0 K/mm3 02/15/20 06:59 Blast Cells # 0.0 K/mm3 02/15/20 06:59 WBC Morphology Not Reportable 02/15/20 06:59 Hypersegmented Neuts Not Reportable 02/15/20 06:59 Hyposegmented Neuts Not Reportable 02/15/20 06:59 Hypogranular Neuts Not Reportable 02/15/20 06:59 Smudge Cells Not Reportable 02/15/20 06:59 Toxic Granulation Not Reportable 02/15/20 06:59 Toxic Vacuolation Not Reportable 02/15/20 06:59 Dohle Bodies Not Reportable 02/15/20 06:59 Pelger-Huet Anomaly Not Reportable 02/15/20 06:59 Hector Rods Not Reportable 02/15/20 06:59 Platelet Estimate Consistent w auto 02/15/20 06:59 Clumped Platelets Not Reportable 02/15/20 06:59 Plt Clumps, EDTA Not Reportable 02/15/20 06:59 Large Platelets Not Reportable 02/15/20 06:59 Giant Platelets Not Reportable 02/15/20 06:59 Platelet Satelliting Not Reportable 02/15/20 06:59 Plt Morphology Comment Giant platelets 02/15/20 06:59 RBC Morphology Not Reportable 02/15/20 06:59 Dimorphic RBCs Not Reportable 02/15/20 06:59 Polychromasia Not Reportable 02/15/20 06:59 Hypochromasia 1+ 02/15/20 06:59 Poikilocytosis Few 02/15/20 06:59 Anisocytosis 1+ 02/15/20 06:59 Microcytosis Not Reportable 02/15/20 06:59 Macrocytosis Not Reportable 02/15/20 06:59 Spherocytes Not Reportable 02/15/20 06:59 Pappenheimer Bodies Not Reportable 02/15/20 06:59 Sickle Cells Not Reportable 02/15/20 06:59 Target Cells 1+ 02/15/20 06:59 Tear Drop Cells Few 02/15/20 06:59 Ovalocytes Not Reportable 02/15/20 06:59 Helmet Cells Not Reportable 02/15/20 06:59 [place] Bodies Not Reportable 02/15/20 06:59 [place] Rings Not Reportable 02/15/20 06:59 [place] Cells Not Reportable 02/15/20 06:59 Bite Cells Not Reportable 02/15/20 06:59 Crenated Cell Not Reportable 02/15/20 06:59 Elliptocytes Few 02/15/20 06:59 Acanthocytes (Spur) Not Reportable 02/15/20 06:59 Rouleaux Not Reportable 02/15/20 06:59 Hemoglobin C Crystals Not Reportable 02/15/20 06:59 Schistocytes Not Reportable 02/15/20 06:59 Malaria parasites Not Reportable 02/15/20 06:59 Clifford Bodies Not Reportable 02/15/20 06:59 Hem Pathologist Commnt No 02/15/20 06:59 PT 27.0 Sec. (12.2-14.9) H 02/07/20 15:03 INR 2.46 (0.87-1.13) H 02/07/20 15:03 APTT 31.5 Sec. (24.2-36.6) 01/22/20 09:58 Heparin Anti-Xa Level 1.34 U.I./ml (0.3-0.7) H 01/22/20 04:45 ABG pH 7.565 (7.320-7.450) H 03/29/20 21:00 POC ABG pCO2 32.4 mmHg (32.0-48.0) 03/29/20 21:00 ABG pCO2 47.8 mm Hg 02/20/20 06:45 POC ABG pO2 66.8 mmHg (83-108) L 03/29/20 21:00 ABG pO2 88.7 mm Hg (80.0-90.0) 02/20/20 06:45 POC ABG HCO3 28.7 03/29/20 21:00 ABG HCO3 33.3 mmol/L (20.0-26.0) H 02/20/20 06:45 ABG O2 Saturation 97.2 % (95.0-99.0) 02/20/20 06:45 ABG O2 Content 13.3 (0.0-44) 02/20/20 06:45 POC ABG Base Excess 6.5 03/29/20 21:00 ABG Base Excess 8.4 mmol/L (-2.0-3.0) H 02/20/20 06:45 ABG Hemoglobin 10.6 (12.0-17.5) L 03/29/20 21:00 ABG Oxyhemoglobin 92.6 (94-98) L 03/29/20 21:00 ABG Carboxyhemoglobin 2.9 % (0.0-5.0) 02/20/20 06:45 ABG Methemoglobin 0.3 (0.0-1.5) 03/29/20 21:00 ABG Sodium 134.8 mmol/L (136.0-145.0) L 03/29/20 21:00 ABG Potassium 4.3 mmol/L (3.40-4.50) 03/29/20 21:00 ABG Chloride 99.0 mmol/L (98-107) 03/29/20 21:00 ABG Glucose 174 mg/dL (65-95) H 03/29/20 21:00 Oxyhemoglobin 94.1 % (95.0-99.0) L 02/20/20 06:45 Carboxyhemoglobin 1.8 (0.5-1.5) H 03/29/20 21:00 FiO2 40.0 03/29/20 21:00 Sodium 138 mmol/L (137-145) 03/31/20 04:13 Potassium 4.1 mmol/L (3.6-5.0) 03/31/20 04:13 Chloride 98.3 mmol/L (98-107) 03/31/20 04:13 Carbon Dioxide 35 mmol/L (22-30) H D 03/31/20 04:13 Anion Gap 9 mmol/L 03/31/20 04:13 BUN 16 mg/dL (9-20) 03/31/20 04:13 Creatinine 0.6 mg/dL (0.8-1.3) L 03/31/20 04:13 Estimated GFR > 60 ml/min 03/31/20 04:13 BUN/Creatinine Ratio 27 % 03/31/20 04:13 Glucose 128 mg/dL (75-100) H 03/31/20 04:13 POC Glucose 136 mg/dL (70-105) H 03/31/20 05:16 Lactic Acid 1.60 mmol/L (0.7-2.0) 02/03/20 12:49 Ferritin 84.4 ng/mL (30.0-300.0) 11/24/19 04:53 Calcium 9.3 mg/dL (8.4-10.2) 03/31/20 04:13 Phosphorus 4.10 mg/dL (2.5-4.5) 01/31/20 19:24 Magnesium 2.10 mg/dL (1.7-2.3) 03/31/20 04:13 Total Bilirubin 1.00 mg/dL (0.1-1.2) 03/31/20 04:13 Direct Bilirubin 0.9 mg/dL (0-0.2) H 02/08/20 19:00 Indirect Bilirubin 0.4 mg/dL 02/08/20 19:00 Total Creatine Kinase 141 units/L (55-170) 11/24/19 02:53 CK-MB (CK-2) 4.3 ng/mL (0.0-4.0) H 11/24/19 02:53 AST 13 units/L (5-40) 03/31/20 04:13 CK-MB (CK-2) Rel Index 3.0 (0-4) 11/24/19 02:53 ALT 12 units/L (7-56) 03/31/20 04:13 Alkaline Phosphatase 94 units/L (35-129) 03/31/20 04:13 C-Reactive Protein 8.50 mg/dL (0.00-1.30) H 12/01/19 12:16 Ammonia 35.0 umol/L (25-60) 02/03/20 12:49 Lactate Dehydrogenase 228 units/L (91-180) H 12/19/19 04:45 Troponin T < 0.010 ng/mL (0.00-0.029) 01/19/20 01:35 NT-Pro-B Natriuret Pep 3866 pg/mL (0-900) H 01/01/20 10:40 Total Protein 6.5 g/dL (6.3-8.2) 03/31/20 04:13 Albumin 2.9 g/dL (3.9-5) L 03/31/20 04:13 Albumin/Globulin Ratio 0.8 % 03/31/20 04:13 Procalcitonin 0.44 ng/mL (<0.15) 02/03/20 12:49 Arterial Blood Glucose 174 mg/dL (65-95) H 03/29/20 21:00 Arterial Blood Ionized Calcium 4.5 mg/dL (4.6-5.3) L 03/29/20 21:00 Urine Color Cecy (Yellow) 02/26/20 07:50 Urine Turbidity Clear (Clear) 02/26/20 07:50 Urine pH 5.0 (5.0-7.0) 02/26/20 07:50 Ur Specific Delta 1.025 (1.003-1.030) 02/26/20 07:50 Urine Protein 30 mg/dl mg/dL (Negative) 02/26/20 07:50 Urine Glucose (UA) Neg mg/dL (Negative) 02/26/20 07:50 Urine Ketones Neg mg/dL (Negative) 02/26/20 07:50 Urine Blood Sm (Negative) 02/26/20 07:50 Urine Nitrite Neg (Negative) 02/26/20 07:50 Urine Bilirubin Neg (Negative) 02/26/20 07:50 Urine Urobilinogen 4.0 mg/dL (<2.0) 02/26/20 07:50 Ur Leukocyte Esterase Lg (Negative) 02/26/20 07:50 Urine WBC (Auto) > 182.0 /HPF (0.0-6.0) H 02/26/20 07:50 Urine RBC (Auto) 84.0 /HPF (0.0-6.0) 02/26/20 07:50 U Epithel Cells (Auto) 2.0 /HPF (0-13.0) 12/31/19 18:04 Urine Bacteria (Auto) 4+ /HPF (Negative) 02/26/20 07:50 Urine WBC Clumps 2+ /HPF 02/26/20 07:50 Urine Mucus 1+ /HPF 02/26/20 07:50 Urine Creatinine 57.4 mg/dL (0.1-20.0) H 01/31/20 Unknown Urine Sodium 59 mmol/L 01/31/20 Unknown Vancomycin Trough 14.2 ug/mL (5.0-20.0) 12/13/19 15:01 Digoxin 0.8 ng/mL (0.9-2.0) L 03/22/20 06:39 Coronavirus (PCR) Negative (Negative) 12/29/19 10:07 Hepatitis A IgM Ab Non-reactive (NonReactive) 02/05/20 06:37 Hep Bs Antigen Non-reactive (Negative) 02/05/20 06:37 Hep B Core IgM Ab Non-reactive (NonReactive) 02/05/20 06:37 Hepatitis C Antibody Non-reactive (NonReactive) 02/05/20 06:37 Blood Type O POSITIVE 01/21/20 13:00 Antibody Screen Negative 01/21/20 13:00 - Diagnostic Impressions Diagnostic Impressions: Echocardiogram 11/29/19 07:37 Transthoracic Echocardiogram Indication: CHF BP: 116/72 HR: 33 Conclusions *The study is technically limited due to poor acoustic windows. *Global left ventricular systolic function is normal. *The estimated ejection fraction is 50-55%. *Mild concentric left ventricular hypertrophy is observed. *There is trace of mitral regurgitation. *There is mild tricuspid regurgitation. Findings Procedure Info: The study quality is poor. The study is technically limited due to poor acoustic windows. The study is technically limited due to patient body habitus. Left Ventricle: The left ventricular chamber size is normal. Mild concentric left ventricular hypertrophy is observed. Global left ventricular systolic function is normal. The estimated ejection fraction is 50-55%. Left Atrium: The left atrial chamber size is normal. Right Ventricle: The right ventricular cavity size is normal. Right Atrium: The right atrial cavity size is normal. Aortic Valve: The aortic valve leaflets are moderately thickened. There is trace of aortic regurgitation. There is no evidence of aortic stenosis. Mitral Valve: The mitral valve leaflets are mildly thickened. There is trace of mitral regurgitation. There is no evidence of mitral stenosis. Tricuspid Valve: There is mild tricuspid regurgitation. No pulmonary hypertension is noted. Pulmonic Valve: There is trace pulmonic regurgitation. Pericardium: There is no pericardial effusion. Aorta: There is no dilatation of the aortic root. Venous: The inferior vena cava appears normal in size. Contrast: Definity was used to optimize study. Intravenous contrast was used to enhance endocardial border definition. Measurements Chambers 2D Name Value Normal Range Ao root diameter (2D) 3.4 cm (2 - 3.7) Aortic Valve Name Value Normal Range AV Vmax 0.98 m/sec - AV VTI 16.76 cm - AV peak gradient 3.83 mmHg - AV mean gradient 2.57 mmHg - LVOT diameter 3.11 cm - LVOT Vmax 0.68 m/sec - LVOT VTI 11.52 cm - LVOT peak gradient 1.84 mmHg - LVOT mean gradient 1.27 mmHg - SV LVOT 87.31 ml - MALOU (continuity Vmax) 5.24 cm2 - MALOU (continuity VTI) 5.21 cm2 - Tricuspid Valve Name Value Normal Range IVC diameter 2.24 cm (1.2 - 2.3) Hoffman/IV: Voiding Method Indwelling Catheter IV Catheter Type [Left INT / Saline Lock Antecubital] IV Catheter Type [Right INT / Saline Lock Forearm] IV Catheter Type [Right Hand] Peripheral IV IV Catheter Type [Right Upper INT / Saline Lock arm] IV Catheter Type [Left Upper Mid-line arm] IV Catheter Type [Left Forearm Peripheral IV ] IV Catheter Type [Left Hand] Peripheral IV IV Catheter Type [Left Wrist] INT / Saline Lock IV Catheter Type [Right Peripheral IV Antecubital] Active Medications - Current Medications Current Medications: Generic Name Dose Route Start Last Admin Trade Name Freq PRN Reason Stop Dose Admin Acetaminophen 650 mg 03/12/20 04:29 03/31/20 02:24 Acetaminophen 325 Mg/10.15 Ml Oral Liqd Unit Dose FEEDTUBE 650 mg Q6H PRN Administration Pain, Mild (1-3) Alprazolam 0.5 mg 03/26/20 09:26 03/31/20 02:24 Alprazolam 0.5 Mg Tab PO 0.5 mg TID PRN Administration Anxiety Lipase/Protease/Amylase 1 each 01/09/20 12:01 03/26/20 14:03 Lipase 10,500/Protease 25,000/Amylase 43,750 (Units) Dr Lauren FEEDTUBE 1 each PRN PRN Administration For Clogged Feeding Tube Apixaban 5 mg 01/22/20 22:00 03/30/20 23:40 Apixaban 5 Mg Tab PO Not Given Q12HR CAR Protocol Atorvastatin Calcium 40 mg 01/20/20 22:00 03/30/20 23:41 Atorvastatin 40 Mg Tab PO Not Given QHS CAR Clopidogrel Bisulfate 75 mg 01/21/20 06:00 03/30/20 10:17 Clopidogrel 75 Mg Tab PO 75 mg QDAY CAR Administration Dextrose 50 ml 01/31/20 18:51 11 00:56 Dextrose 50% In Water (25gm) 50 Ml Syringe IV 50 ml Q30MIN PRN Administration Hypoglycemia Protocol Digoxin 0.125 mg 02/25/20 17:00 03/30/20 16:56 Digoxin 0.125 Mg Tab PO 0.125 mg DAILY@1700 CAR Administration Docusate Sodium 100 mg 02/22/20 10:00 03/30/20 23:40 Docusate Sodium 100 Mg/10 Ml Oral Liqd FEEDTUBE Not Given BID CAR Furosemide 20 mg 03/26/20 10:00 03/30/20 10:16 Furosemide 20 Mg Tab PO 20 mg QDAY CAR Administration Glycopyrrolate 2 mg 02/24/20 21:00 03/30/20 20:42 Glycopyrrolate 2 Mg Tab PO 2 mg TID CAR Administration Haloperidol Lactate 5 mg 02/10/20 14:20 03/19/20 23:26 Haloperidol Lactate 5 Mg/1 Ml Inj IV 5 mg Q6H PRN Administration Agitation Hydrophilic Ointment 1 applic 01/17/20 15:26 02/24/20 23:20 Lip Therapy Vaseline TP 1 applic DIRECT PRN Administration Dry Lips Insulin Human Regular 0 unit 02/01/20 18:00 03/31/20 05:26 Insulin Regular, Human 100 Unit/Ml 3ml Vial SUB-Q Not Given Q6H [facility] Protocol Lansoprazole 30 mg 02/05/20 16:00 03/30/20 10:17 Lansoprazole 30 Mg Solutab FEEDTUBE 30 mg QDAY CAR Administration Metoprolol Tartrate 5 mg 01/11/20 08:00 03/18/20 16:52 Metoprolol Tartrate 5 Mg/5 Ml Inj IV 5 mg Q6H PRN Administration SEE INSTRUCTIONS Metoprolol Tartrate 25 mg 03/31/20 08:56 Metoprolol Tartrate 25 Mg Tab FEEDTUBE BID CAR Midodrine 15 mg 02/04/20 16:00 03/30/20 16:56 Midodrine 5 Mg Tab PO 15 mg TID@0800,1200,1600 [facility] Administration Morphine Sulfate 2 mg 01/06/20 15:41 03/30/20 20:41 Morphine 2 Mg/1 Ml Inj IV 2 mg Q4H PRN Administration Pain, Moderate (4-6) Multi-Ingred Cream/Lotion/Oil/Oint 1 applic 02/01/20 15:52 Mineral Oil/Petrolatum, White Ophth Oint 3.5 Gm OU Q4HR PRN Dry Eye(s) Nitroglycerin 0.4 mg 01/19/20 21:09 01/20/20 03:03 Nitroglycerin 0.4 Mg Tab Subl SL 0.4 mg .Q5MIN PRN Administration Chest Pain Ondansetron HCl 4 mg 03/25/20 08:01 03/30/20 20:40 Ondansetron 4 Mg/2 Ml Inj IV 4 mg Q4H PRN Administration Nausea And Vomiting Polyethylene Glycol 17 gm 12/04/19 22:00 03/30/20 23:41 Polyethylene Glycol 3350 17 Gm Powder PO Not Given QHS [facility] Quetiapine Fumarate 300 mg 01/13/20 22:00 03/30/20 23:42 Quetiapine 100 Mg Tab PO Not Given BID CAR Simple Syrup 15 ml 01/09/20 12:01 Simple Syrup 15 Ml FEEDTUBE PRN PRN Hypoglycemia Simple Syrup 30 ml 01/09/20 12:01 Simple Syrup 15 Ml FEEDTUBE PRN PRN Hypoglycemia Sodium Bicarbonate 325 mg 01/09/20 12:01 03/07/20 12:56 Sodium Bicarbonate 325 Mg Tab FEEDTUBE 325 mg PRN PRN Administration For Clogged Feeding Tube Sodium Chloride 10 ml 11/24/19 10:00 03/30/20 23:42 Sodium Chloride 0.9% 10 Ml Flush Syringe IV 10 ml BID CAR Administration Tamsulosin HCl 0.8 mg 12/20/19 22:00 03/30/20 23:41 Tamsulosin 0.4 Mg Cap PO Not Given QHS [facility] Nutrition/Malnutrition Assess - Dietary Evaluation Nutrition/Malnutrition Findings: Nutrition Notes Start: 11/24/19 12:22 Freq: Status: Active Protocol: Document 03/28/20 10:09 BORA (Rec: 03/28/20 10:20 [facility] [id number]) Nutrition Notes Initial or Follow up Reassessment Current Diagnosis COPD,Sepsis,Heart Failure, Respiratory Failure Other Pertinent Diagnosis Bilat pneu, dysphagia Current Diet TF - Osmolite 1.5 at 65ml/hr Labs/Tests Reviewed Pertinent Medications Lasix Height 6 ft 2 in Weight 130.5 kg [place] Body Weight (kg) 86.36 BMI 36.9 Weight Status Obese Subjective/Other Information Pt with intractable nausea at times; TF continues to infuse at 55ml/hr, as pt unable to tolerate higher rate. Pt remains on vent support. Awaiting placement. Percent of energy/protein needs met: 76% energy (using unadjusted needs) 77% pro Burn Absent Trauma Absent Minimum of two criteria Yes #2 Nutrition Diagnosis Malnutrition Diagnosis Progress(for reassessment Continues documentation) #1 Nutrition Diagnosis Inadequate oral intake Diagnosis Progress(for reassessment Continues documentation) Is patient on ventilator? Yes Is Patient Ambulatory and/or Out of Bed No REE-([facility]-confined to bed) 2608.188 Kcal/Kg value to use for calculation 16 Approximate Energy Requirements Using 2088 kcal/Kg Calculation Used for Recommendations Kcal/kg Additional Notes Pro needs 1-1.2g/kg adjBW: 108 -130g/day Fluid needs per MD. Nutrition Intervention Nutrition Support: Change TF rate to Osmolite 1.5 at 55ml/hr with 150ml water flush q4h. Kcal 1,980 Protein (gm) 83 Fluid (mL) 1,006 Goal #1 TF tolerance Goal #2 TF to meet at least 65-70% energy and 75% pro needs Follow-Up By: 04/04/20 Additional Comments F/U: TF tolerance, wt, vent status
[2020-03-31] MEDS: MIDODRINE 5 MG TAB PO SCH ×3 (10:54→11:11)
[2020-03-31] MEDS: QUEtiapine 100 MG TAB PO SCH ×2 (10:54→23:51)
[2020-03-31] MEDS: FUROSEMIDE 20 MG TAB PO SCH (10:55)
[2020-03-31] MEDS: LANSOPRAZOLE 30 MG SOLUTAB FEEDTUBE SCH (10:55)
[2020-03-31] MEDS: APIXABAN 5 MG TAB PO SCH ×2 (10:55→23:50)
[2020-03-31] MEDS: DOCUSATE SODIUM 100 MG/10 ML ORAL LIQD FEEDTUBE SCH ×2 (10:55→23:49)
[2020-03-31] MEDS: CLOPIDOGREL 75 MG TAB PO SCH (10:55)
[2020-03-31] MEDS: GLYCOPYRROLATE 2 MG TAB PO SCH ×3 (10:56→23:49)
--- NOTE | 2020-03-31 13:26 | Progress Note ---
Assessment and Plan - Patient Problems (1) Paroxysmal atrial fibrillation Current Visit: Yes Status: Acute Plan to address problem: Continue current management of atrial fibrillation on a rate control strategy and oral anticoagulation, stable cardiac status. Subjective Date of service: 03/31/20 Principal diagnosis: Ac hypoxemic resp failure; Pneumonia; PUI COVID-19; CHF; COPD; HTN Interval history: Patient is on a trach T-piece, block piler shows atrial fibrillation with heart rate in the 110s to 120s. Objective Vital Signs Temp Pulse Pulse Resp Resp BP Pulse Ox 03/31/20 12:30 133 H 22 118/79 96 03/31/20 12:00 130 H 109 H 22 118/79 97 03/31/20 11:30 120 H 22 120/72 96 03/31/20 11:00 137 H 22 104/85 97 03/31/20 10:30 129 H 25 H 99/78 96 03/31/20 10:00 133 H 24 103/81 97 03/31/20 09:30 129 H 22 118/79 95 03/31/20 09:00 123 H 17 105/77 100 03/31/20 08:30 121 H 21 99/78 100 03/31/20 08:10 125 H 125 H 22 99 03/31/20 08:00 97.7 F 136 H 21 95/77 100 03/31/20 07:30 120 H 22 128/90 100 03/31/20 07:00 136 H 19 96/81 85 03/31/20 06:30 136 H 19 106/85 97 03/31/20 06:00 130 H 28 H 109/76 99 03/31/20 05:30 131 H 21 117/80 98 03/31/20 05:00 130 H 24 21 130/91 98 03/31/20 04:30 125 H 24 110/75 100 03/31/20 04:00 98.3 F 143 H 26 H 110/75 99 03/31/20 03:38 134 H 03/31/20 03:30 141 H 23 119/50 99 03/31/20 03:24 24 03/31/20 03:00 127 H 22 124/85 99 03/31/20 02:30 137 H 25 H 109/84 98 03/31/20 02:27 140 H 109/84 03/31/20 02:24 29 H 03/31/20 02:00 133 H 23 109/84 97 03/31/20 01:30 123 H 21 104/80 98 03/31/20 01:00 127 H 21 96/74 93 03/31/20 00:30 126 H 21 108/77 92 03/31/20 00:00 98.3 F 131 H 131 H 22 108/77 95 03/30/20 23:48 123 H 16 103/67 97 03/30/20 23:30 116 H 19 98/68 96 03/30/20 23:00 113 H 22 95/74 95 03/30/20 22:30 142 H 22 107/61 98 03/30/20 22:00 131 H 22 97/64 98 03/30/20 21:30 106 H 20 86/65 97 03/30/20 21:11 20 03/30/20 21:00 106 H 21 86/65 96 03/30/20 20:41 22 03/30/20 20:32 128 H 03/30/20 20:30 126 H 22 105/64 97 03/30/20 20:00 98.3 F 127 H 26 H 99/69 96 03/30/20 19:30 123 H 21 88/69 94 03/30/20 19:00 114 H 22 88/66 94 03/30/20 18:31 121 H 20 88/66 97 03/30/20 18:00 113 H 24 98/73 95 03/30/20 17:31 131 H 20 92/67 95 03/30/20 17:01 127 H 18 96/61 98 03/30/20 16:56 116 H 03/30/20 16:30 124 H 16 96/61 97 03/30/20 16:17 93 03/30/20 16:01 115 H 22 106/46 100 03/30/20 16:00 97.7 F 03/30/20 15:31 127 H 22 97/54 93 03/30/20 15:30 03/30/20 15:01 113 H 20 87/64 98 03/30/20 14:30 126 H 24 100/68 95 03/30/20 14:00 127 H 19 97/72 92 03/30/20 13:31 121 H 17 87/65 Pulse Ox 03/31/20 12:30 03/31/20 12:00 03/31/20 11:30 03/31/20 11:00 03/31/20 10:30 03/31/20 10:00 96 03/31/20 09:30 03/31/20 09:00 03/31/20 08:30 03/31/20 08:10 03/31/20 08:00 03/31/20 07:30 03/31/20 07:00 03/31/20 06:30 03/31/20 06:00 03/31/20 05:30 03/31/20 05:00 03/31/20 04:30 03/31/20 04:00 03/31/20 03:38 03/31/20 03:30 03/31/20 03:24 03/31/20 03:00 03/31/20 02:30 03/31/20 02:27 03/31/20 02:24 03/31/20 02:00 03/31/20 01:30 03/31/20 01:00 03/31/20 00:30 03/31/20 00:00 03/30/20 23:48 03/30/20 23:30 03/30/20 23:00 99 03/30/20 22:30 03/30/20 22:00 03/30/20 21:30 03/30/20 21:11 03/30/20 21:00 03/30/20 20:41 03/30/20 20:32 03/30/20 20:30 03/30/20 20:00 03/30/20 19:30 03/30/20 19:00 03/30/20 18:31 03/30/20 18:00 03/30/20 17:31 03/30/20 17:01 03/30/20 16:56 03/30/20 16:30 03/30/20 16:17 03/30/20 16:01 03/30/20 16:00 03/30/20 15:31 03/30/20 15:30 97 03/30/20 15:01 03/30/20 14:30 03/30/20 14:00 03/30/20 13:31 - Physical Examination General: No Apparent Distress, Other (s/p trach) HEENT: Positive: PERRL Neck: Positive: neck supple, Other (s/p trach) Cardiac: Positive: irregularly irregular Lungs: Positive: Decreased Breath Sounds Neuro: Positive: Grossly Intact, Weakness Abdomen: Positive: Soft Skin: Positive: Clear Extremities: Absent: edema - Labs and Meds Cardiac Enzymes 03/31/20 Range/Units 04:13 AST 13 (5-40) units/L CBC 03/31/20 Range/Units 04:13 WBC 8.8 (4.5-11.0) K/mm3 RBC 4.21 (3.65-5.03) M/mm3 Hgb 10.2 L (11.8-15.2) gm/dl Hct 32.6 L (35.5-45.6) % Plt Count 217 (140-440) K/mm3 Lymph # (Auto) 2.1 (1.2-5.4) K/mm3 [place] # (Auto) 1.0 H (0.0-0.8) K/mm3 Eos # (Auto) 0.2 (0.0-0.4) K/mm3 Baso # (Auto) 0.1 (0.0-0.1) K/mm3 Comprehensive Metabolic Panel 03/31/20 Range/Units 04:13 Sodium 138 (137-145) mmol/L Potassium 4.1 (3.6-5.0) mmol/L Chloride 98.3 (98-107) mmol/L Carbon Dioxide 35 H D (22-30) mmol/L BUN 16 (9-20) mg/dL Creatinine 0.6 L (0.8-1.3) mg/dL Glucose 128 H (75-100) mg/dL Calcium 9.3 (8.4-10.2) mg/dL AST 13 (5-40) units/L ALT 12 (7-56) units/L Alkaline Phosphatase 94 (35-129) units/L Total Protein 6.5 (6.3-8.2) g/dL Albumin 2.9 L (3.9-5) g/dL - Allied health notes Allied health notes reviewed: nursing
[2020-03-31] MEDS: TAMSULOSIN 0.4 MG CAP PO SCH (23:50)
[2020-03-31] MEDS: POLYETHYLENE GLYCOL 3350 17 GM POWDER PO SCH (23:51)
[2020-04-01] MEDS: INSULIN REGULAR, HUMAN 100 UNIT/ML 3ML VIAL SUB-Q SCH ×2 (08:27→12:03)
[2020-04-01] MEDS: METOPROLOL TARTRATE 25 MG TAB FEEDTUBE SCH (09:47)
[2020-04-01] MEDS: QUEtiapine 100 MG TAB PO SCH (09:47)
[2020-04-01] MEDS: CLOPIDOGREL 75 MG TAB PO SCH (09:47)
[2020-04-01] MEDS: GLYCOPYRROLATE 2 MG TAB PO SCH ×2 (09:47→13:59)
[2020-04-01] MEDS: DOCUSATE SODIUM 100 MG/10 ML ORAL LIQD FEEDTUBE SCH (09:47)
[2020-04-01] MEDS: FUROSEMIDE 20 MG TAB PO SCH (09:48)
[2020-04-01] MEDS: MIDODRINE 5 MG TAB PO SCH ×3 (09:48→12:10)
[2020-04-01] MEDS: APIXABAN 5 MG TAB PO SCH (09:48)
[2020-04-01] MEDS: LANSOPRAZOLE 30 MG SOLUTAB FEEDTUBE SCH (09:48)
[2020-04-01] MEDS: ALPRAZolam 0.5 MG TAB PO PRN (12:03)
[2020-04-01] MEDS: METOPROLOL TARTRATE 5 MG/5 ML INJ IV PRN (12:14)
[2020-04-01] MEDS: HALOPERIDOL LACTATE 5 MG/1 ML INJ IV PRN (12:37)
[2020-04-01] MEDS: ACETAMINOPHEN 325 MG/10.15 ML ORAL LIQD UNIT DOSE FEEDTUBE PRN (12:37)
--- NOTE | 2020-04-01 13:21 | Progress Note ---
Assessment and Plan Acute hypoxemic respiratory failure Bilateral pneumonia, community acquired. Acute LLL branch P.E. Acute DVT Person under investigation for COVID-19 infection. Acute congestive heart failure exacerbation. History of cerebrovascular accident. Acute chronic obstructive pulmonary disease exacerbation. Hypertension and hypertensive urgency at presentation. History of arthritis. Leukocytosis. Lactic acidosis. Oropharyngeal dysphagia - repeat CXR pending - continue to increase time on T-Collar till RTC - continue low dose diuresis (Lasix 20 mg IV X 1 then 20 mg p.o. daily) - remains a difficult wean, continue care as below; - continue daily SAT's and SBT assessment as tolerated - continue to wean oxygen for O2 sat's > 92% - continue bronchodilators with routine trach care and pulmonary hygiene per RT - VAP bundle addressed (Aspiration precautions, HOB >40) - continue to wean per pulmonary driven protocols - continue to rest on AC qhs - continue Flomax - antiinfective's per ID rec's - Midodrine for BP support - prn mucomyst nebs re: secretions - continue full anticoagulation with Apixaban - continue seroquel for anxiolysis / delirium - COVID isolation per facility protocol - prn diuresis while following electrolytes / I's & O's - sedation target is RASS 0 to -1 - continue prn analgesia per CPOT score - follow clinically re: fever curves / trend WBC - Avoid delirium (no benzodiazepines if they can be avoided) - Maintain sleep-wake cycle - enteral nutrition at goal rate as tolerated - continue accucheck's with glycemic control per SSI for target blood glucose goal of 140-180 mg/dL while critically ill; Avoid hypoglycemia - for VTE he is onEliquis - continue stress ulcer prophylaxis with Famotidine - continue mobility protocols for pressure ulcer prophylaxis - continue fall precautions - continue wound care management per RN / WCT - Supportive transfusions to keep HgB>7g/dL - CXR's and ABG's prn - Continue to monitor neurologic function - Continue chronic home medications - Continue all supportive care ........ re-evaluate in am & prn CONDITION: CRITICAL PROGNOSIS: GUARDED CODE STATUS: FULL CODE The high probability of a clinically significant, sudden or life threatening deterioration of the [Respiratory, cardiovascular & neurological] system(s) required my full and direct attention, intervention and personal management. The aggregate critical care time was [35] minutes without overlap. Time includes spent on [x] Data Review and interpretation [x] Patient assessment and monitoring of vital signs [x] Documentation [x] Medication orders and management Subjective Date of service: 04/01/20 Principal diagnosis: Ac hypoxemic resp failure; Pneumonia; PUI COVID-19; CHF; COPD; HTN Interval history: Patient is seen today for: Acute hypoxemic respiratory failure; Adan. Pneumonia (CAP); PUI COVID-19 infection; AE-CHF; AE-COPD; H/O CVA; HTN Seen and examined at bedside; 24 hour events reviewed; nursing and respiratory care staff consulted; no adverse overnight events reported to me; resting peacefully in bed; Objective Vital Signs - 12hr 04/01/20 04/01/20 04/01/20 01:30 02:00 02:30 Temperature Pulse Rate 117 H 140 H 130 H Pulse Rate [ From Monitor] Respiratory 23 27 H 29 H Rate Blood Pressure 109/79 109/79 O2 Sat by Pulse 99 100 90 Oximetry O2 Sat by Pulse Oximetry [ Assessment] 04/01/20 04/01/20 04/01/20 03:00 03:21 03:30 Temperature 97.7 F Pulse Rate 121 H 152 H Pulse Rate [ From Monitor] Respiratory 19 29 H Rate Blood Pressure 103/79 103/79 O2 Sat by Pulse 99 96 Oximetry O2 Sat by Pulse Oximetry [ Assessment] 04/01/20 04/01/20 04/01/20 03:34 04:00 04:30 Temperature Pulse Rate 126 H 129 H Pulse Rate [ 124 H From Monitor] Respiratory 28 H 22 Rate Blood Pressure 111/80 111/80 O2 Sat by Pulse 97 95 Oximetry O2 Sat by Pulse 95 Oximetry [ Assessment] 04/01/20 04/01/20 04/01/20 05:00 05:30 06:00 Temperature Pulse Rate 128 H 137 H 139 H Pulse Rate [ From Monitor] Respiratory 28 H 17 21 Rate Blood Pressure 103/71 108/71 116/71 O2 Sat by Pulse 95 95 96 Oximetry O2 Sat by Pulse Oximetry [ Assessment] 04/01/20 04/01/20 04/01/20 06:30 07:00 07:30 Temperature Pulse Rate 136 H 122 H 142 H Pulse Rate [ From Monitor] Respiratory 27 H 26 H 31 H Rate Blood Pressure 106/71 115/86 114/81 O2 Sat by Pulse 100 99 100 Oximetry O2 Sat by Pulse Oximetry [ Assessment] 04/01/20 04/01/20 04/01/20 08:00 09:47 10:00 Temperature Pulse Rate 131 H 142 H Pulse Rate [ From Monitor] Respiratory 25 H Rate Blood Pressure 121/83 116/92 O2 Sat by Pulse 100 96 Oximetry O2 Sat by Pulse Oximetry [ Assessment] 04/01/20 12:14 Temperature Pulse Rate 136 H Pulse Rate [ From Monitor] Respiratory Rate Blood Pressure 121/79 O2 Sat by Pulse Oximetry O2 Sat by Pulse Oximetry [ Assessment] Constitutional: no acute distress, other (elderly and obese male, normocephalic with mildly increased respiratory effort at rest) Eyes: non-icteric ENT: oropharynx moist, other (+ midline tracheostomy) Neck: supple, no JVD Effort: mildly labored Ascultation: Bilateral: clear, diminished breath sounds, rhonchi (scant), other (small tracheal secretions ) Percussion: Bilateral: not dull Cardiovascular: irregular rhythm Gastrointestinal: normoactive bowel sounds, soft, non-tender, non-distended (protuberant), other (protuberant; PEG in place) Integumentary: normal Extremities: no cyanosis, pulses normal, no ischemia or petechiae, edema (2+) Neurologic: non-focal exam (grossly; moves extremities), pupils equal and round, unable to assess Psychiatric: mood appropriate, affect normal CBC and BMP: 03/31/20 04:13 03/31/20 04:13 ABG, PT/INR, D-dimer: ABG ABG pH 7.565 (7.320-7.450) H 03/29/20 21:00 POC ABG pCO2 32.4 mmHg (32.0-48.0) 03/29/20 21:00 ABG pCO2 47.8 mm Hg 02/20/20 06:45 POC ABG pO2 66.8 mmHg (83-108) L 03/29/20 21:00 ABG pO2 88.7 mm Hg (80.0-90.0) 02/20/20 06:45 POC ABG HCO3 28.7 03/29/20 21:00 ABG O2 Saturation 97.2 % (95.0-99.0) 02/20/20 06:45 PT/INR, D-dimer PT 27.0 Sec. (12.2-14.9) H 02/07/20 15:03 INR 2.46 (0.87-1.13) H 02/07/20 15:03 Abnormal lab findings: Abnormal Labs 11/24/19 11/24/19 11/24/19 02:53 02:53 03:45 WBC 14.3 H RBC Hgb Hct MCHC RDW 17.2 H MCV MCH Lymph % (Auto) [place] % (Auto) [place] # Eos # Lymph # (Auto) [place] # (Auto) Eos # (Auto) Seg Neutrophils % Seg Neuts % (Manual) Baso # (Auto) Lymphocytes % (Manual) Monocytes % (Manual) Eosinophils % (Manual) Basophils % (Manual) Seg Neutrophils # Seg Neutrophils # Man 8.3 H Lymphocytes # (Manual) Monocytes # (Manual) 0.9 H Eosinophils # (Manual) Nucleated RBC % Basophils # (Manual) PT INR APTT Heparin Anti-Xa Level ABG pH 7.313 L POC ABG pO2 ABG pO2 102.8 H ABG HCO3 ABG O2 Saturation ABG Base Excess -2.9 L POC ABG pCO2 ABG Hemoglobin ABG Oxyhemoglobin ABG Sodium ABG Chloride ABG Glucose Oxyhemoglobin 93.9 L Carboxyhemoglobin Sodium Potassium Chloride Carbon Dioxide BUN Creatinine Glucose 195 H POC Glucose Lactic Acid Calcium Phosphorus Magnesium AST ALT Lactate Dehydrogenase Total Bilirubin Direct Bilirubin CK-MB (CK-2) 4.3 H C-Reactive Protein NT-Pro-B Natriuret Pep 1181 H Total Protein Albumin Arterial Blood Glucose Arterial Blood Ionized Calcium Urine WBC (Auto) Urine Creatinine Digoxin 11/24/19 11/24/19 11/24/19 04:53 04:53 10:37 WBC RBC Hgb Hct MCHC RDW MCV MCH Lymph % (Auto) [place] % (Auto) [place] # Eos # Lymph # (Auto) [place] # (Auto) Eos # (Auto) Seg Neutrophils % Seg Neuts % (Manual) Baso # (Auto) Lymphocytes % (Manual) Monocytes % (Manual) Eosinophils % (Manual) Basophils % (Manual) Seg Neutrophils # Seg Neutrophils # Man Lymphocytes # (Manual) Monocytes # (Manual) Eosinophils # (Manual) Nucleated RBC % Basophils # (Manual) PT INR APTT Heparin Anti-Xa Level ABG pH POC ABG pO2 ABG pO2 ABG HCO3 ABG O2 Saturation ABG Base Excess POC ABG pCO2 ABG Hemoglobin ABG Oxyhemoglobin ABG Sodium ABG Chloride ABG Glucose Oxyhemoglobin Carboxyhemoglobin Sodium Potassium Chloride Carbon Dioxide BUN Creatinine Glucose 162 H POC Glucose Lactic Acid 2.40 H* 2.50 H* Calcium Phosphorus Magnesium AST ALT Lactate Dehydrogenase 240 H Total Bilirubin Direct Bilirubin CK-MB (CK-2) C-Reactive Protein NT-Pro-B Natriuret Pep Total Protein Albumin Arterial Blood Glucose Arterial Blood Ionized Calcium Urine WBC (Auto) Urine Creatinine Digoxin 11/24/19 11/24/19 11/24/19 12:21 14:50 19:54 WBC RBC Hgb Hct MCHC RDW MCV MCH Lymph % (Auto) [place] % (Auto) [place] # Eos # Lymph # (Auto) [place] # (Auto) Eos # (Auto) Seg Neutrophils % Seg Neuts % (Manual) Baso # (Auto) Lymphocytes % (Manual) Monocytes % (Manual) Eosinophils % (Manual) Basophils % (Manual) Seg Neutrophils # Seg Neutrophils # Man Lymphocytes # (Manual) Monocytes # (Manual) Eosinophils # (Manual) Nucleated RBC % Basophils # (Manual) PT INR APTT Heparin Anti-Xa Level ABG pH POC ABG pO2 ABG pO2 ABG HCO3 ABG O2 Saturation ABG Base Excess POC ABG pCO2 ABG Hemoglobin ABG Oxyhemoglobin ABG Sodium ABG Chloride ABG Glucose Oxyhemoglobin Carboxyhemoglobin Sodium Potassium Chloride Carbon Dioxide BUN Creatinine Glucose POC Glucose 145 H 143 H 124 H Lactic Acid Calcium Phosphorus Magnesium AST ALT Lactate Dehydrogenase Total Bilirubin Direct Bilirubin CK-MB (CK-2) C-Reactive Protein NT-Pro-B Natriuret Pep Total Protein Albumin Arterial Blood Glucose Arterial Blood Ionized Calcium Urine WBC (Auto) Urine Creatinine Digoxin 11/25/19 11/25/19 11/25/19 00:18 03:18 05:11 WBC 13.7 H RBC Hgb Hct MCHC RDW 17.1 H MCV MCH Lymph % (Auto) 10.8 L [place] % (Auto) 8.7 H [place] # 1.2 H Eos # Lymph # (Auto) [place] # (Auto) Eos # (Auto) Seg Neutrophils % 80.2 H Seg Neuts % (Manual) Baso # (Auto) Lymphocytes % (Manual) Monocytes % (Manual) Eosinophils % (Manual) Basophils % (Manual) Seg Neutrophils # 11.0 H Seg Neutrophils # Man Lymphocytes # (Manual) Monocytes # (Manual) Eosinophils # (Manual) Nucleated RBC % Basophils # (Manual) PT INR APTT Heparin Anti-Xa Level ABG pH 7.333 L POC ABG pO2 ABG pO2 61.2 L ABG HCO3 ABG O2 Saturation 90.2 L ABG Base Excess POC ABG pCO2 ABG Hemoglobin 13.7 L ABG Oxyhemoglobin ABG Sodium ABG Chloride ABG Glucose Oxyhemoglobin 88.2 L Carboxyhemoglobin Sodium Potassium Chloride Carbon Dioxide BUN Creatinine Glucose POC Glucose 109 H Lactic Acid Calcium Phosphorus Magnesium AST ALT Lactate Dehydrogenase Total Bilirubin Direct Bilirubin CK-MB (CK-2) C-Reactive Protein NT-Pro-B Natriuret Pep Total Protein Albumin Arterial Blood Glucose Arterial Blood Ionized Calcium Urine WBC (Auto) Urine Creatinine Digoxin 11/25/19 11/25/19 11/26/19 05:11 11:40 03:12 WBC RBC Hgb Hct MCHC RDW MCV MCH Lymph % (Auto) [place] % (Auto) [place] # Eos # Lymph # (Auto) [place] # (Auto) Eos # (Auto) Seg Neutrophils % Seg Neuts % (Manual) Baso # (Auto) Lymphocytes % (Manual) Monocytes % (Manual) Eosinophils % (Manual) Basophils % (Manual) Seg Neutrophils # Seg Neutrophils # Man Lymphocytes # (Manual) Monocytes # (Manual) Eosinophils # (Manual) Nucleated RBC % Basophils # (Manual) PT INR APTT Heparin Anti-Xa Level ABG pH POC ABG pO2 ABG pO2 155.1 H ABG HCO3 27.8 H ABG O2 Saturation ABG Base Excess POC ABG pCO2 ABG Hemoglobin 12.2 L ABG Oxyhemoglobin ABG Sodium ABG Chloride ABG Glucose Oxyhemoglobin Carboxyhemoglobin Sodium Potassium Chloride Carbon Dioxide BUN 23 H Creatinine Glucose 110 H POC Glucose 108 H Lactic Acid Calcium Phosphorus Magnesium AST ALT Lactate Dehydrogenase Total Bilirubin Direct Bilirubin CK-MB (CK-2) C-Reactive Protein NT-Pro-B Natriuret Pep Total Protein Albumin Arterial Blood Glucose Arterial Blood Ionized Calcium Urine WBC (Auto) Urine Creatinine Digoxin 11/26/19 11/26/19 11/26/19 06:17 10:43 10:43 WBC 11.4 H RBC Hgb Hct MCHC RDW 17.1 H MCV MCH Lymph % (Auto) [place] % (Auto) [place] # Eos # Lymph # (Auto) [place] # (Auto) Eos # (Auto) Seg Neutrophils % Seg Neuts % (Manual) Baso # (Auto) Lymphocytes % (Manual) Monocytes % (Manual) Eosinophils % (Manual) Basophils % (Manual) Seg Neutrophils # Seg Neutrophils # Man Lymphocytes # (Manual) Monocytes # (Manual) Eosinophils # (Manual) Nucleated RBC % Basophils # (Manual) PT INR APTT Heparin Anti-Xa Level ABG pH POC ABG pO2 ABG pO2 ABG HCO3 ABG O2 Saturation ABG Base Excess POC ABG pCO2 ABG Hemoglobin ABG Oxyhemoglobin ABG Sodium ABG Chloride ABG Glucose Oxyhemoglobin Carboxyhemoglobin Sodium Potassium Chloride Carbon Dioxide BUN 29 H Creatinine Glucose POC Glucose 107 H Lactic Acid Calcium Phosphorus Magnesium AST ALT Lactate Dehydrogenase Total Bilirubin Direct Bilirubin CK-MB (CK-2) C-Reactive Protein NT-Pro-B Natriuret Pep Total Protein Albumin Arterial Blood Glucose Arterial Blood Ionized Calcium Urine WBC (Auto) Urine Creatinine Digoxin 11/26/19 11/27/19 11/27/19 17:11 01:53 04:11 WBC RBC Hgb Hct MCHC RDW MCV MCH Lymph % (Auto) [place] % (Auto) [place] # Eos # Lymph # (Auto) [place] # (Auto) Eos # (Auto) Seg Neutrophils % Seg Neuts % (Manual) Baso # (Auto) Lymphocytes % (Manual) Monocytes % (Manual) Eosinophils % (Manual) Basophils % (Manual) Seg Neutrophils # Seg Neutrophils # Man Lymphocytes # (Manual) Monocytes # (Manual) Eosinophils # (Manual) Nucleated RBC % Basophils # (Manual) PT INR APTT Heparin Anti-Xa Level ABG pH POC ABG pO2 ABG pO2 ABG HCO3 29.2 H ABG O2 Saturation ABG Base Excess 3.4 H POC ABG pCO2 ABG Hemoglobin 13.3 L ABG Oxyhemoglobin ABG Sodium ABG Chloride ABG Glucose Oxyhemoglobin 94.5 L Carboxyhemoglobin Sodium Potassium Chloride Carbon Dioxide BUN Creatinine Glucose POC Glucose 113 H 108 H Lactic Acid Calcium Phosphorus Magnesium AST ALT Lactate Dehydrogenase Total Bilirubin Direct Bilirubin CK-MB (CK-2) C-Reactive Protein NT-Pro-B Natriuret Pep Total Protein Albumin Arterial Blood Glucose Arterial Blood Ionized Calcium Urine WBC (Auto) Urine Creatinine Digoxin 11/27/19 11/28/19 11/28/19 05:27 05:00 05:25 WBC RBC Hgb Hct MCHC RDW MCV MCH Lymph % (Auto) [place] % (Auto) [place] # Eos # Lymph # (Auto) [place] # (Auto) Eos # (Auto) Seg Neutrophils % Seg Neuts % (Manual) Baso # (Auto) Lymphocytes % (Manual) Monocytes % (Manual) Eosinophils % (Manual) Basophils % (Manual) Seg Neutrophils # Seg Neutrophils # Man Lymphocytes # (Manual) Monocytes # (Manual) Eosinophils # (Manual) Nucleated RBC % Basophils # (Manual) PT INR APTT Heparin Anti-Xa Level ABG pH POC ABG pO2 68.1 L ABG pO2 ABG HCO3 ABG O2 Saturation ABG Base Excess POC ABG pCO2 ABG Hemoglobin ABG Oxyhemoglobin 91.2 L ABG Sodium ABG Chloride ABG Glucose Oxyhemoglobin Carboxyhemoglobin Sodium Potassium Chloride Carbon Dioxide BUN Creatinine Glucose POC Glucose 111 H 110 H Lactic Acid Calcium Phosphorus Magnesium AST ALT Lactate Dehydrogenase Total Bilirubin Direct Bilirubin CK-MB (CK-2) C-Reactive Protein NT-Pro-B Natriuret Pep Total Protein Albumin Arterial Blood Glucose Arterial Blood Ionized Calcium Urine WBC (Auto) Urine Creatinine Digoxin 11/28/19 11/28/19 11/28/19 12:08 13:47 13:47 WBC 11.3 H RBC Hgb Hct MCHC RDW 16.1 H MCV MCH Lymph % (Auto) [place] % (Auto) 9.9 H [place] # 1.1 H Eos # Lymph # (Auto) [place] # (Auto) Eos # (Auto) Seg Neutrophils % 71.4 H Seg Neuts % (Manual) Baso # (Auto) Lymphocytes % (Manual) Monocytes % (Manual) Eosinophils % (Manual) Basophils % (Manual) Seg Neutrophils # 8.1 H Seg Neutrophils # Man Lymphocytes # (Manual) Monocytes # (Manual) Eosinophils # (Manual) Nucleated RBC % Basophils # (Manual) PT INR APTT Heparin Anti-Xa Level ABG pH POC ABG pO2 ABG pO2 ABG HCO3 ABG O2 Saturation ABG Base Excess POC ABG pCO2 ABG Hemoglobin ABG Oxyhemoglobin ABG Sodium ABG Chloride ABG Glucose Oxyhemoglobin Carboxyhemoglobin Sodium Potassium Chloride Carbon Dioxide BUN 23 H Creatinine Glucose 123 H POC Glucose 112 H Lactic Acid Calcium Phosphorus Magnesium AST ALT Lactate Dehydrogenase Total Bilirubin Direct Bilirubin CK-MB (CK-2) C-Reactive Protein NT-Pro-B Natriuret Pep Total Protein Albumin 3.7 L Arterial Blood Glucose Arterial Blood Ionized Calcium Urine WBC (Auto) Urine Creatinine Digoxin 11/28/19 11/29/19 11/29/19 17:26 03:55 17:04 WBC RBC Hgb Hct MCHC RDW MCV MCH Lymph % (Auto) [place] % (Auto) [place] # Eos # Lymph # (Auto) [place] # (Auto) Eos # (Auto) Seg Neutrophils % Seg Neuts % (Manual) Baso # (Auto) Lymphocytes % (Manual) Monocytes % (Manual) Eosinophils % (Manual) Basophils % (Manual) Seg Neutrophils # Seg Neutrophils # Man Lymphocytes # (Manual) Monocytes # (Manual) Eosinophils # (Manual) Nucleated RBC % Basophils # (Manual) PT INR APTT Heparin Anti-Xa Level ABG pH POC ABG pO2 ABG pO2 65.7 L ABG HCO3 28.3 H ABG O2 Saturation 93.9 L ABG Base Excess 3.6 H POC ABG pCO2 ABG Hemoglobin 13.3 L ABG Oxyhemoglobin ABG Sodium ABG Chloride ABG Glucose Oxyhemoglobin 91.5 L Carboxyhemoglobin Sodium Potassium Chloride Carbon Dioxide BUN Creatinine Glucose POC Glucose 123 H 119 H Lactic Acid Calcium Phosphorus Magnesium AST ALT Lactate Dehydrogenase Total Bilirubin Direct Bilirubin CK-MB (CK-2) C-Reactive Protein NT-Pro-B Natriuret Pep Total Protein Albumin Arterial Blood Glucose Arterial Blood Ionized Calcium Urine WBC (Auto) Urine Creatinine Digoxin 11/30/19 11/30/19 11/30/19 04:17 04:17 04:56 WBC 13.4 H RBC Hgb Hct MCHC RDW 15.6 H MCV MCH Lymph % (Auto) [place] % (Auto) [place] # Eos # Lymph # (Auto) [place] # (Auto) Eos # (Auto) Seg Neutrophils % Seg Neuts % (Manual) Baso # (Auto) Lymphocytes % (Manual) Monocytes % (Manual) Eosinophils % (Manual) Basophils % (Manual) Seg Neutrophils # Seg Neutrophils # Man Lymphocytes # (Manual) Monocytes # (Manual) Eosinophils # (Manual) Nucleated RBC % Basophils # (Manual) PT INR APTT Heparin Anti-Xa Level ABG pH POC ABG pO2 ABG pO2 56.3 L ABG HCO3 29.3 H ABG O2 Saturation 91.5 L ABG Base Excess 4.7 H POC ABG pCO2 ABG Hemoglobin 12.1 L ABG Oxyhemoglobin ABG Sodium ABG Chloride ABG Glucose Oxyhemoglobin 89.2 L Carboxyhemoglobin Sodium 147 H Potassium Chloride Carbon Dioxide BUN 30 H Creatinine Glucose 124 H POC Glucose Lactic Acid Calcium Phosphorus Magnesium AST ALT Lactate Dehydrogenase Total Bilirubin Direct Bilirubin CK-MB (CK-2) C-Reactive Protein NT-Pro-B Natriuret Pep Total Protein Albumin 3.8 L Arterial Blood Glucose Arterial Blood Ionized Calcium Urine WBC (Auto) Urine Creatinine Digoxin 11/30/19 11/30/19 11/30/19 05:51 11:54 18:17 WBC RBC Hgb Hct MCHC RDW MCV MCH Lymph % (Auto) [place] % (Auto) [place] # Eos # Lymph # (Auto) [place] # (Auto) Eos # (Auto) Seg Neutrophils % Seg Neuts % (Manual) Baso # (Auto) Lymphocytes % (Manual) Monocytes % (Manual) Eosinophils % (Manual) Basophils % (Manual) Seg Neutrophils # Seg Neutrophils # Man Lymphocytes # (Manual) Monocytes # (Manual) Eosinophils # (Manual) Nucleated RBC % Basophils # (Manual) PT INR APTT Heparin Anti-Xa Level ABG pH POC ABG pO2 ABG pO2 ABG HCO3 ABG O2 Saturation ABG Base Excess POC ABG pCO2 ABG Hemoglobin ABG Oxyhemoglobin ABG Sodium ABG Chloride ABG Glucose Oxyhemoglobin Carboxyhemoglobin Sodium Potassium Chloride Carbon Dioxide BUN Creatinine Glucose POC Glucose 127 H 115 H 143 H Lactic Acid Calcium Phosphorus Magnesium AST ALT Lactate Dehydrogenase Total Bilirubin Direct Bilirubin CK-MB (CK-2) C-Reactive Protein NT-Pro-B Natriuret Pep Total Protein Albumin Arterial Blood Glucose Arterial Blood Ionized Calcium Urine WBC (Auto) Urine Creatinine Digoxin 12/01/19 12/01/19 12/01/19 01:18 05:22 12:16 WBC RBC Hgb Hct MCHC RDW MCV MCH Lymph % (Auto) [place] % (Auto) [place] # Eos # Lymph # (Auto) [place] # (Auto) Eos # (Auto) Seg Neutrophils % Seg Neuts % (Manual) Baso # (Auto) Lymphocytes % (Manual) Monocytes % (Manual) Eosinophils % (Manual) Basophils % (Manual) Seg Neutrophils # Seg Neutrophils # Man Lymphocytes # (Manual) Monocytes # (Manual) Eosinophils # (Manual) Nucleated RBC % Basophils # (Manual) PT INR APTT Heparin Anti-Xa Level ABG pH POC ABG pO2 ABG pO2 ABG HCO3 ABG O2 Saturation ABG Base Excess POC ABG pCO2 ABG Hemoglobin ABG Oxyhemoglobin ABG Sodium ABG Chloride ABG Glucose Oxyhemoglobin Carboxyhemoglobin Sodium Potassium 3.5 L Chloride 107.8 H Carbon Dioxide BUN 37 H Creatinine Glucose 157 H POC Glucose 118 H 148 H Lactic Acid Calcium 8.2 L D Phosphorus Magnesium AST 48 H ALT 60 H Lactate Dehydrogenase 194 H Total Bilirubin Direct Bilirubin CK-MB (CK-2) C-Reactive Protein 8.50 H NT-Pro-B Natriuret Pep Total Protein 5.5 L Albumin 2.8 L Arterial Blood Glucose Arterial Blood Ionized Calcium Urine WBC (Auto) Urine Creatinine Digoxin 12/01/19 12/02/19 12/02/19 18:04 00:05 05:16 WBC 11.4 H RBC Hgb Hct MCHC RDW 15.9 H MCV MCH Lymph % (Auto) [place] % (Auto) 9.9 H [place] # 1.1 H Eos # Lymph # (Auto) [place] # (Auto) Eos # (Auto) Seg Neutrophils % 70.3 H Seg Neuts % (Manual) Baso # (Auto) Lymphocytes % (Manual) Monocytes % (Manual) Eosinophils % (Manual) Basophils % (Manual) Seg Neutrophils # 8.0 H Seg Neutrophils # Man Lymphocytes # (Manual) Monocytes # (Manual) Eosinophils # (Manual) Nucleated RBC % Basophils # (Manual) PT INR APTT Heparin Anti-Xa Level ABG pH POC ABG pO2 ABG pO2 ABG HCO3 ABG O2 Saturation ABG Base Excess POC ABG pCO2 ABG Hemoglobin ABG Oxyhemoglobin ABG Sodium ABG Chloride ABG Glucose Oxyhemoglobin Carboxyhemoglobin Sodium Potassium Chloride Carbon Dioxide BUN Creatinine Glucose POC Glucose 143 H 107 H Lactic Acid Calcium Phosphorus Magnesium AST ALT Lactate Dehydrogenase Total Bilirubin Direct Bilirubin CK-MB (CK-2) C-Reactive Protein NT-Pro-B Natriuret Pep Total Protein Albumin Arterial Blood Glucose Arterial Blood Ionized Calcium Urine WBC (Auto) Urine Creatinine Digoxin 12/02/19 12/02/19 12/02/19 05:16 06:03 11:52 WBC RBC Hgb Hct MCHC RDW MCV MCH Lymph % (Auto) [place] % (Auto) [place] # Eos # Lymph # (Auto) [place] # (Auto) Eos # (Auto) Seg Neutrophils % Seg Neuts % (Manual) Baso # (Auto) Lymphocytes % (Manual) Monocytes % (Manual) Eosinophils % (Manual) Basophils % (Manual) Seg Neutrophils # Seg Neutrophils # Man Lymphocytes # (Manual) Monocytes # (Manual) Eosinophils # (Manual) Nucleated RBC % Basophils # (Manual) PT INR APTT Heparin Anti-Xa Level ABG pH POC ABG pO2 ABG pO2 ABG HCO3 ABG O2 Saturation ABG Base Excess POC ABG pCO2 ABG Hemoglobin ABG Oxyhemoglobin ABG Sodium ABG Chloride ABG Glucose Oxyhemoglobin Carboxyhemoglobin Sodium 146 H Potassium Chloride Carbon Dioxide BUN 28 H Creatinine Glucose 123 H POC Glucose 110 H 152 H Lactic Acid Calcium Phosphorus Magnesium AST ALT Lactate Dehydrogenase Total Bilirubin Direct Bilirubin CK-MB (CK-2) C-Reactive Protein NT-Pro-B Natriuret Pep Total Protein Albumin Arterial Blood Glucose Arterial Blood Ionized Calcium Urine WBC (Auto) Urine Creatinine Digoxin 12/02/19 12/02/19 12/02/19 12:58 17:58 23:36 WBC RBC Hgb Hct MCHC RDW MCV MCH Lymph % (Auto) [place] % (Auto) [place] # Eos # Lymph # (Auto) [place] # (Auto) Eos # (Auto) Seg Neutrophils % Seg Neuts % (Manual) Baso # (Auto) Lymphocytes % (Manual) Monocytes % (Manual) Eosinophils % (Manual) Basophils % (Manual) Seg Neutrophils # Seg Neutrophils # Man Lymphocytes # (Manual) Monocytes # (Manual) Eosinophils # (Manual) Nucleated RBC % Basophils # (Manual) PT INR APTT Heparin Anti-Xa Level ABG pH POC ABG pO2 78.1 L ABG pO2 ABG HCO3 ABG O2 Saturation ABG Base Excess POC ABG pCO2 ABG Hemoglobin ABG Oxyhemoglobin ABG Sodium ABG Chloride ABG Glucose Oxyhemoglobin Carboxyhemoglobin Sodium Potassium Chloride Carbon Dioxide BUN Creatinine Glucose POC Glucose 120 H 123 H Lactic Acid Calcium Phosphorus Magnesium AST ALT Lactate Dehydrogenase Total Bilirubin Direct Bilirubin CK-MB (CK-2) C-Reactive Protein NT-Pro-B Natriuret Pep Total Protein Albumin Arterial Blood Glucose Arterial Blood Ionized Calcium Urine WBC (Auto) Urine Creatinine Digoxin 12/03/19 12/03/19 12/03/19 06:03 06:14 11:46 WBC RBC Hgb Hct MCHC RDW MCV MCH Lymph % (Auto) [place] % (Auto) [place] # Eos # Lymph # (Auto) [place] # (Auto) Eos # (Auto) Seg Neutrophils % Seg Neuts % (Manual) Baso # (Auto) Lymphocytes % (Manual) Monocytes % (Manual) Eosinophils % (Manual) Basophils % (Manual) Seg Neutrophils # Seg Neutrophils # Man Lymphocytes # (Manual) Monocytes # (Manual) Eosinophils # (Manual) Nucleated RBC % Basophils # (Manual) PT INR APTT Heparin Anti-Xa Level ABG pH POC ABG pO2 ABG pO2 ABG HCO3 ABG O2 Saturation ABG Base Excess POC ABG pCO2 ABG Hemoglobin ABG Oxyhemoglobin ABG Sodium ABG Chloride ABG Glucose Oxyhemoglobin Carboxyhemoglobin Sodium Potassium Chloride Carbon Dioxide BUN Creatinine Glucose POC Glucose 142 H 130 H Lactic Acid Calcium Phosphorus Magnesium AST ALT Lactate Dehydrogenase Total Bilirubin Direct Bilirubin CK-MB (CK-2) C-Reactive Protein NT-Pro-B Natriuret Pep Total Protein Albumin Arterial Blood Glucose Arterial Blood Ionized Calcium Urine WBC (Auto) 8.0 H Urine Creatinine Digoxin 12/03/19 12/03/19 12/04/19 15:50 17:39 00:04 WBC RBC Hgb Hct MCHC RDW MCV MCH Lymph % (Auto) [place] % (Auto) [place] # Eos # Lymph # (Auto) [place] # (Auto) Eos # (Auto) Seg Neutrophils % Seg Neuts % (Manual) Baso # (Auto) Lymphocytes % (Manual) Monocytes % (Manual) Eosinophils % (Manual) Basophils % (Manual) Seg Neutrophils # Seg Neutrophils # Man Lymphocytes # (Manual) Monocytes # (Manual) Eosinophils # (Manual) Nucleated RBC % Basophils # (Manual) PT INR APTT Heparin Anti-Xa Level ABG pH POC ABG pO2 ABG pO2 ABG HCO3 ABG O2 Saturation ABG Base Excess POC ABG pCO2 ABG Hemoglobin ABG Oxyhemoglobin ABG Sodium ABG Chloride ABG Glucose Oxyhemoglobin Carboxyhemoglobin Sodium Potassium Chloride Carbon Dioxide BUN Creatinine Glucose POC Glucose 146 H 133 H Lactic Acid Calcium Phosphorus 2.40 L Magnesium AST ALT Lactate Dehydrogenase Total Bilirubin Direct Bilirubin CK-MB (CK-2) C-Reactive Protein NT-Pro-B Natriuret Pep Total Protein Albumin Arterial Blood Glucose Arterial Blood Ionized Calcium Urine WBC (Auto) Urine Creatinine Digoxin 12/04/19 12/04/19 12/04/19 03:58 03:58 05:22 WBC 12.5 H RBC Hgb 11.2 L Hct 35.2 L MCHC RDW 16.0 H MCV MCH Lymph % (Auto) [place] % (Auto) 9.6 H [place] # 1.2 H Eos # 0.5 H Lymph # (Auto) [place] # (Auto) Eos # (Auto) Seg Neutrophils % Seg Neuts % (Manual) Baso # (Auto) Lymphocytes % (Manual) Monocytes % (Manual) Eosinophils % (Manual) Basophils % (Manual) Seg Neutrophils # 8.6 H Seg Neutrophils # Man Lymphocytes # (Manual) Monocytes # (Manual) Eosinophils # (Manual) Nucleated RBC % Basophils # (Manual) PT INR APTT Heparin Anti-Xa Level ABG pH POC ABG pO2 ABG pO2 ABG HCO3 ABG O2 Saturation ABG Base Excess POC ABG pCO2 ABG Hemoglobin ABG Oxyhemoglobin ABG Sodium ABG Chloride ABG Glucose Oxyhemoglobin Carboxyhemoglobin Sodium 146 H Potassium Chloride 108.6 H Carbon Dioxide BUN 30 H Creatinine 0.7 L Glucose 121 H POC Glucose 132 H Lactic Acid Calcium Phosphorus Magnesium AST ALT Lactate Dehydrogenase Total Bilirubin Direct Bilirubin CK-MB (CK-2) C-Reactive Protein NT-Pro-B Natriuret Pep Total Protein Albumin Arterial Blood Glucose Arterial Blood Ionized Calcium Urine WBC (Auto) Urine Creatinine Digoxin 12/04/19 12/04/19 12/05/19 13:26 18:43 00:19 WBC RBC Hgb Hct MCHC RDW MCV MCH Lymph % (Auto) [place] % (Auto) [place] # Eos # Lymph # (Auto) [place] # (Auto) Eos # (Auto) Seg Neutrophils % Seg Neuts % (Manual) Baso # (Auto) Lymphocytes % (Manual) Monocytes % (Manual) Eosinophils % (Manual) Basophils % (Manual) Seg Neutrophils # Seg Neutrophils # Man Lymphocytes # (Manual) Monocytes # (Manual) Eosinophils # (Manual) Nucleated RBC % Basophils # (Manual) PT INR APTT Heparin Anti-Xa Level ABG pH POC ABG pO2 ABG pO2 ABG HCO3 ABG O2 Saturation ABG Base Excess POC ABG pCO2 ABG Hemoglobin ABG Oxyhemoglobin ABG Sodium ABG Chloride ABG Glucose Oxyhemoglobin Carboxyhemoglobin Sodium Potassium Chloride Carbon Dioxide BUN Creatinine Glucose POC Glucose 185 H 156 H 150 H Lactic Acid Calcium Phosphorus Magnesium AST ALT Lactate Dehydrogenase Total Bilirubin Direct Bilirubin CK-MB (CK-2) C-Reactive Protein NT-Pro-B Natriuret Pep Total Protein Albumin Arterial Blood Glucose Arterial Blood Ionized Calcium Urine WBC (Auto) Urine Creatinine Digoxin 12/05/19 12/05/19 12/05/19 03:37 03:37 05:14 WBC 16.3 H RBC Hgb 11.4 L Hct MCHC RDW 15.6 H MCV MCH Lymph % (Auto) 9.9 L [place] % (Auto) 9.7 H [place] # 1.6 H Eos # Lymph # (Auto) [place] # (Auto) Eos # (Auto) Seg Neutrophils % 78.0 H Seg Neuts % (Manual) Baso # (Auto) Lymphocytes % (Manual) Monocytes % (Manual) Eosinophils % (Manual) Basophils % (Manual) Seg Neutrophils # 12.7 H Seg Neutrophils # Man Lymphocytes # (Manual) Monocytes # (Manual) Eosinophils # (Manual) Nucleated RBC % Basophils # (Manual) PT INR APTT Heparin Anti-Xa Level ABG pH POC ABG pO2 ABG pO2 ABG HCO3 ABG O2 Saturation ABG Base Excess POC ABG pCO2 ABG Hemoglobin ABG Oxyhemoglobin ABG Sodium ABG Chloride ABG Glucose Oxyhemoglobin Carboxyhemoglobin Sodium 146 H Potassium Chloride 107.2 H Carbon Dioxide BUN 27 H Creatinine 0.7 L Glucose 171 H POC Glucose 168 H Lactic Acid Calcium Phosphorus Magnesium AST ALT Lactate Dehydrogenase Total Bilirubin Direct Bilirubin CK-MB (CK-2) C-Reactive Protein NT-Pro-B Natriuret Pep Total Protein Albumin Arterial Blood Glucose Arterial Blood Ionized Calcium Urine WBC (Auto) Urine Creatinine Digoxin 12/05/19 12/05/19 12/05/19 12:31 18:10 23:58 WBC RBC Hgb Hct MCHC RDW MCV MCH Lymph % (Auto) [place] % (Auto) [place] # Eos # Lymph # (Auto) [place] # (Auto) Eos # (Auto) Seg Neutrophils % Seg Neuts % (Manual) Baso # (Auto) Lymphocytes % (Manual) Monocytes % (Manual) Eosinophils % (Manual) Basophils % (Manual) Seg Neutrophils # Seg Neutrophils # Man Lymphocytes # (Manual) Monocytes # (Manual) Eosinophils # (Manual) Nucleated RBC % Basophils # (Manual) PT INR APTT Heparin Anti-Xa Level ABG pH POC ABG pO2 ABG pO2 ABG HCO3 ABG O2 Saturation ABG Base Excess POC ABG pCO2 ABG Hemoglobin ABG Oxyhemoglobin ABG Sodium ABG Chloride ABG Glucose Oxyhemoglobin Carboxyhemoglobin Sodium Potassium Chloride Carbon Dioxide BUN Creatinine Glucose POC Glucose 159 H 198 H 115 H Lactic Acid Calcium Phosphorus Magnesium AST ALT Lactate Dehydrogenase Total Bilirubin Direct Bilirubin CK-MB (CK-2) C-Reactive Protein NT-Pro-B Natriuret Pep Total Protein Albumin Arterial Blood Glucose Arterial Blood Ionized Calcium Urine WBC (Auto) Urine Creatinine Digoxin 12/06/19 12/06/19 12/06/19 05:24 05:24 05:25 WBC 14.9 H RBC Hgb 10.8 L Hct 34.0 L MCHC RDW 15.6 H MCV MCH Lymph % (Auto) 10.7 L [place] % (Auto) 8.3 H [place] # 1.2 H Eos # Lymph # (Auto) [place] # (Auto) Eos # (Auto) Seg Neutrophils % 78.7 H Seg Neuts % (Manual) Baso # (Auto) Lymphocytes % (Manual) Monocytes % (Manual) Eosinophils % (Manual) Basophils % (Manual) Seg Neutrophils # 11.7 H Seg Neutrophils # Man Lymphocytes # (Manual) Monocytes # (Manual) Eosinophils # (Manual) Nucleated RBC % Basophils # (Manual) PT INR APTT Heparin Anti-Xa Level ABG pH POC ABG pO2 ABG pO2 ABG HCO3 ABG O2 Saturation ABG Base Excess POC ABG pCO2 ABG Hemoglobin ABG Oxyhemoglobin ABG Sodium ABG Chloride ABG Glucose Oxyhemoglobin Carboxyhemoglobin Sodium 148 H Potassium 5.1 H Chloride 107.6 H Carbon Dioxide BUN 27 H Creatinine 0.7 L Glucose 155 H POC Glucose 157 H Lactic Acid Calcium Phosphorus Magnesium AST ALT Lactate Dehydrogenase Total Bilirubin Direct Bilirubin CK-MB (CK-2) C-Reactive Protein NT-Pro-B Natriuret Pep Total Protein Albumin Arterial Blood Glucose Arterial Blood Ionized Calcium Urine WBC (Auto) Urine Creatinine Digoxin 12/07/19 12/07/19 12/07/19 00:13 05:34 11:33 WBC RBC Hgb Hct MCHC RDW MCV MCH Lymph % (Auto) [place] % (Auto) [place] # Eos # Lymph # (Auto) [place] # (Auto) Eos # (Auto) Seg Neutrophils % Seg Neuts % (Manual) Baso # (Auto) Lymphocytes % (Manual) Monocytes % (Manual) Eosinophils % (Manual) Basophils % (Manual) Seg Neutrophils # Seg Neutrophils # Man Lymphocytes # (Manual) Monocytes # (Manual) Eosinophils # (Manual) Nucleated RBC % Basophils # (Manual) PT INR APTT Heparin Anti-Xa Level ABG pH POC ABG pO2 ABG pO2 ABG HCO3 ABG O2 Saturation ABG Base Excess POC ABG pCO2 ABG Hemoglobin ABG Oxyhemoglobin ABG Sodium ABG Chloride ABG Glucose Oxyhemoglobin Carboxyhemoglobin Sodium Potassium Chloride Carbon Dioxide BUN Creatinine Glucose POC Glucose 142 H 111 H 169 H Lactic Acid Calcium Phosphorus Magnesium AST ALT Lactate Dehydrogenase Total Bilirubin Direct Bilirubin CK-MB (CK-2) C-Reactive Protein NT-Pro-B Natriuret Pep Total Protein Albumin Arterial Blood Glucose Arterial Blood Ionized Calcium Urine WBC (Auto) Urine Creatinine Digoxin 12/07/19 12/07/19 12/07/19 12:41 13:25 18:19 WBC 12.4 H RBC 3.53 L Hgb 10.2 L Hct 32.1 L MCHC RDW 15.3 H MCV MCH Lymph % (Auto) 10.6 L [place] % (Auto) 7.8 H [place] # 1.0 H Eos # Lymph # (Auto) [place] # (Auto) Eos # (Auto) Seg Neutrophils % 77.6 H Seg Neuts % (Manual) Baso # (Auto) Lymphocytes % (Manual) Monocytes % (Manual) Eosinophils % (Manual) Basophils % (Manual) Seg Neutrophils # 9.6 H Seg Neutrophils # Man Lymphocytes # (Manual) Monocytes # (Manual) Eosinophils # (Manual) Nucleated RBC % Basophils # (Manual) PT INR APTT Heparin Anti-Xa Level ABG pH POC ABG pO2 ABG pO2 ABG HCO3 ABG O2 Saturation ABG Base Excess POC ABG pCO2 ABG Hemoglobin ABG Oxyhemoglobin ABG Sodium ABG Chloride ABG Glucose Oxyhemoglobin Carboxyhemoglobin Sodium 149 H Potassium Chloride 108.4 H Carbon Dioxide BUN 26 H Creatinine 0.6 L Glucose 149 H POC Glucose 164 H Lactic Acid Calcium Phosphorus Magnesium 2.60 H AST 121 H ALT 145 H Lactate Dehydrogenase Total Bilirubin Direct Bilirubin CK-MB (CK-2) C-Reactive Protein NT-Pro-B Natriuret Pep Total Protein Albumin 2.6 L Arterial Blood Glucose Arterial Blood Ionized Calcium Urine WBC (Auto) Urine Creatinine Digoxin 12/07/19 12/08/19 12/08/19 22:25 00:02 03:55 WBC 13.3 H RBC 3.40 L Hgb 9.7 L Hct 30.8 L MCHC 31 L RDW 15.5 H MCV MCH Lymph % (Auto) [place] % (Auto) 8.1 H [place] # 1.1 H Eos # Lymph # (Auto) [place] # (Auto) Eos # (Auto) Seg Neutrophils % 73.0 H Seg Neuts % (Manual) Baso # (Auto) Lymphocytes % (Manual) Monocytes % (Manual) Eosinophils % (Manual) Basophils % (Manual) Seg Neutrophils # 9.7 H Seg Neutrophils # Man Lymphocytes # (Manual) Monocytes # (Manual) Eosinophils # (Manual) Nucleated RBC % Basophils # (Manual) PT INR APTT Heparin Anti-Xa Level 0.12 L ABG pH POC ABG pO2 ABG pO2 ABG HCO3 ABG O2 Saturation ABG Base Excess POC ABG pCO2 ABG Hemoglobin ABG Oxyhemoglobin ABG Sodium ABG Chloride ABG Glucose Oxyhemoglobin Carboxyhemoglobin Sodium Potassium Chloride Carbon Dioxide BUN Creatinine Glucose POC Glucose 151 H Lactic Acid Calcium Phosphorus Magnesium AST ALT Lactate Dehydrogenase Total Bilirubin Direct Bilirubin CK-MB (CK-2) C-Reactive Protein NT-Pro-B Natriuret Pep Total Protein Albumin Arterial Blood Glucose Arterial Blood Ionized Calcium Urine WBC (Auto) Urine Creatinine Digoxin 12/08/19 12/08/19 12/08/19 03:55 05:21 06:01 WBC RBC Hgb Hct MCHC RDW MCV MCH Lymph % (Auto) [place] % (Auto) [place] # Eos # Lymph # (Auto) [place] # (Auto) Eos # (Auto) Seg Neutrophils % Seg Neuts % (Manual) Baso # (Auto) Lymphocytes % (Manual) Monocytes % (Manual) Eosinophils % (Manual) Basophils % (Manual) Seg Neutrophils # Seg Neutrophils # Man Lymphocytes # (Manual) Monocytes # (Manual) Eosinophils # (Manual) Nucleated RBC % Basophils # (Manual) PT INR APTT Heparin Anti-Xa Level 0.20 L ABG pH POC ABG pO2 ABG pO2 ABG HCO3 ABG O2 Saturation ABG Base Excess POC ABG pCO2 ABG Hemoglobin ABG Oxyhemoglobin ABG Sodium ABG Chloride ABG Glucose Oxyhemoglobin Carboxyhemoglobin Sodium 149 H Potassium Chloride 108.0 H Carbon Dioxide BUN 28 H Creatinine 0.6 L Glucose 144 H POC Glucose 143 H Lactic Acid Calcium Phosphorus Magnesium AST 98 H ALT 145 H Lactate Dehydrogenase Total Bilirubin Direct Bilirubin CK-MB (CK-2) C-Reactive Protein NT-Pro-B Natriuret Pep Total Protein 6.0 L Albumin 2.4 L Arterial Blood Glucose Arterial Blood Ionized Calcium Urine WBC (Auto) Urine Creatinine Digoxin 12/08/19 12/08/19 12/08/19 12:08 18:11 23:53 WBC RBC Hgb Hct MCHC RDW MCV MCH Lymph % (Auto) [place] % (Auto) [place] # Eos # Lymph # (Auto) [place] # (Auto) Eos # (Auto) Seg Neutrophils % Seg Neuts % (Manual) Baso # (Auto) Lymphocytes % (Manual) Monocytes % (Manual) Eosinophils % (Manual) Basophils % (Manual) Seg Neutrophils # Seg Neutrophils # Man Lymphocytes # (Manual) Monocytes # (Manual) Eosinophils # (Manual) Nucleated RBC % Basophils # (Manual) PT INR APTT Heparin Anti-Xa Level ABG pH POC ABG pO2 ABG pO2 ABG HCO3 ABG O2 Saturation ABG Base Excess POC ABG pCO2 ABG Hemoglobin ABG Oxyhemoglobin ABG Sodium ABG Chloride ABG Glucose Oxyhemoglobin Carboxyhemoglobin Sodium Potassium Chloride Carbon Dioxide BUN Creatinine Glucose POC Glucose 172 H 122 H 162 H Lactic Acid Calcium Phosphorus Magnesium AST ALT Lactate Dehydrogenase Total Bilirubin Direct Bilirubin CK-MB (CK-2) C-Reactive Protein NT-Pro-B Natriuret Pep Total Protein Albumin Arterial Blood Glucose Arterial Blood Ionized Calcium Urine WBC (Auto) Urine Creatinine Digoxin 12/09/19 12/09/19 12/09/19 04:03 04:03 05:53 WBC RBC Hgb 9.1 L Hct 28.9 L MCHC RDW MCV MCH Lymph % (Auto) [place] % (Auto) [place] # Eos # Lymph # (Auto) [place] # (Auto) Eos # (Auto) Seg Neutrophils % Seg Neuts % (Manual) Baso # (Auto) Lymphocytes % (Manual) Monocytes % (Manual) Eosinophils % (Manual) Basophils % (Manual) Seg Neutrophils # Seg Neutrophils # Man Lymphocytes # (Manual) Monocytes # (Manual) Eosinophils # (Manual) Nucleated RBC % Basophils # (Manual) PT INR APTT Heparin Anti-Xa Level 0.15 L ABG pH POC ABG pO2 ABG pO2 ABG HCO3 ABG O2 Saturation ABG Base Excess POC ABG pCO2 ABG Hemoglobin ABG Oxyhemoglobin ABG Sodium ABG Chloride ABG Glucose Oxyhemoglobin Carboxyhemoglobin Sodium Potassium Chloride Carbon Dioxide BUN Creatinine Glucose POC Glucose 124 H Lactic Acid Calcium Phosphorus Magnesium AST ALT Lactate Dehydrogenase Total Bilirubin Direct Bilirubin CK-MB (CK-2) C-Reactive Protein NT-Pro-B Natriuret Pep Total Protein Albumin Arterial Blood Glucose Arterial Blood Ionized Calcium Urine WBC (Auto) Urine Creatinine Digoxin 12/09/19 12/09/19 12/10/19 09:43 12:41 00:13 WBC RBC Hgb Hct MCHC RDW MCV MCH Lymph % (Auto) [place] % (Auto) [place] # Eos # Lymph # (Auto) [place] # (Auto) Eos # (Auto) Seg Neutrophils % Seg Neuts % (Manual) Baso # (Auto) Lymphocytes % (Manual) Monocytes % (Manual) Eosinophils % (Manual) Basophils % (Manual) Seg Neutrophils # Seg Neutrophils # Man Lymphocytes # (Manual) Monocytes # (Manual) Eosinophils # (Manual) Nucleated RBC % Basophils # (Manual) PT INR APTT Heparin Anti-Xa Level ABG pH POC ABG pO2 ABG pO2 ABG HCO3 ABG O2 Saturation ABG Base Excess POC ABG pCO2 ABG Hemoglobin ABG Oxyhemoglobin ABG Sodium ABG Chloride ABG Glucose Oxyhemoglobin Carboxyhemoglobin Sodium Potassium Chloride Carbon Dioxide BUN 25 H Creatinine 0.6 L Glucose 131 H POC Glucose 109 H 120 H Lactic Acid Calcium Phosphorus Magnesium AST ALT Lactate Dehydrogenase Total Bilirubin Direct Bilirubin CK-MB (CK-2) C-Reactive Protein NT-Pro-B Natriuret Pep Total Protein Albumin Arterial Blood Glucose Arterial Blood Ionized Calcium Urine WBC (Auto) Urine Creatinine Digoxin 12/10/19 12/10/19 12/10/19 04:14 04:14 12:00 WBC 13.3 H RBC 3.34 L Hgb 9.6 L Hct 30.4 L MCHC RDW 15.4 H MCV MCH Lymph % (Auto) [place] % (Auto) [place] # Eos # Lymph # (Auto) [place] # (Auto) Eos # (Auto) Seg Neutrophils % Seg Neuts % (Manual) 75.0 H Baso # (Auto) Lymphocytes % (Manual) 13.0 L Monocytes % (Manual) 8.0 H Eosinophils % (Manual) Basophils % (Manual) 2.0 H Seg Neutrophils # Seg Neutrophils # Man 10.0 H Lymphocytes # (Manual) Monocytes # (Manual) 1.1 H Eosinophils # (Manual) Nucleated RBC % Basophils # (Manual) 0.3 H PT INR APTT Heparin Anti-Xa Level ABG pH POC ABG pO2 ABG pO2 ABG HCO3 ABG O2 Saturation ABG Base Excess POC ABG pCO2 ABG Hemoglobin ABG Oxyhemoglobin ABG Sodium ABG Chloride ABG Glucose Oxyhemoglobin Carboxyhemoglobin Sodium 147 H Potassium Chloride 108.3 H Carbon Dioxide BUN 21 H Creatinine 0.6 L Glucose 104 H POC Glucose 133 H Lactic Acid Calcium Phosphorus Magnesium AST ALT Lactate Dehydrogenase Total Bilirubin Direct Bilirubin CK-MB (CK-2) C-Reactive Protein NT-Pro-B Natriuret Pep Total Protein Albumin Arterial Blood Glucose Arterial Blood Ionized Calcium Urine WBC (Auto) Urine Creatinine Digoxin 12/10/19 12/10/19 12/11/19 18:44 21:20 00:08 WBC 14.9 H RBC 3.36 L Hgb 9.6 L Hct 30.5 L MCHC RDW 15.4 H MCV MCH Lymph % (Auto) [place] % (Auto) [place] # Eos # Lymph # (Auto) [place] # (Auto) Eos # (Auto) Seg Neutrophils % Seg Neuts % (Manual) Baso # (Auto) Lymphocytes % (Manual) Monocytes % (Manual) Eosinophils % (Manual) Basophils % (Manual) Seg Neutrophils # Seg Neutrophils # Man Lymphocytes # (Manual) Monocytes # (Manual) Eosinophils # (Manual) Nucleated RBC % Basophils # (Manual) PT INR APTT Heparin Anti-Xa Level ABG pH POC ABG pO2 ABG pO2 ABG HCO3 ABG O2 Saturation ABG Base Excess POC ABG pCO2 ABG Hemoglobin ABG Oxyhemoglobin ABG Sodium ABG Chloride ABG Glucose Oxyhemoglobin Carboxyhemoglobin Sodium Potassium Chloride Carbon Dioxide BUN Creatinine Glucose POC Glucose 119 H 134 H Lactic Acid Calcium Phosphorus Magnesium AST ALT Lactate Dehydrogenase Total Bilirubin Direct Bilirubin CK-MB (CK-2) C-Reactive Protein NT-Pro-B Natriuret Pep Total Protein Albumin Arterial Blood Glucose Arterial Blood Ionized Calcium Urine WBC (Auto) Urine Creatinine Digoxin 12/11/19 12/11/19 12/11/19 03:54 07:28 08:36 WBC 11.9 H RBC 3.25 L Hgb 9.6 L Hct 29.2 L MCHC RDW 15.7 H MCV MCH Lymph % (Auto) [place] % (Auto) [place] # Eos # Lymph # (Auto) [place] # (Auto) Eos # (Auto) Seg Neutrophils % Seg Neuts % (Manual) Baso # (Auto) Lymphocytes % (Manual) Monocytes % (Manual) Eosinophils % (Manual) Basophils % (Manual) Seg Neutrophils # Seg Neutrophils # Man Lymphocytes # (Manual) Monocytes # (Manual) Eosinophils # (Manual) Nucleated RBC % Basophils # (Manual) PT INR APTT Heparin Anti-Xa Level 0.10 L 0.16 L ABG pH POC ABG pO2 ABG pO2 ABG HCO3 ABG O2 Saturation ABG Base Excess POC ABG pCO2 ABG Hemoglobin ABG Oxyhemoglobin ABG Sodium ABG Chloride ABG Glucose Oxyhemoglobin Carboxyhemoglobin Sodium Potassium Chloride Carbon Dioxide BUN Creatinine Glucose POC Glucose Lactic Acid Calcium Phosphorus Magnesium AST ALT Lactate Dehydrogenase Total Bilirubin Direct Bilirubin CK-MB (CK-2) C-Reactive Protein NT-Pro-B Natriuret Pep Total Protein Albumin Arterial Blood Glucose Arterial Blood Ionized Calcium Urine WBC (Auto) Urine Creatinine Digoxin 12/11/19 12/11/19 12/11/19 08:36 11:45 17:15 WBC RBC Hgb Hct MCHC RDW MCV MCH Lymph % (Auto) [place] % (Auto) [place] # Eos # Lymph # (Auto) [place] # (Auto) Eos # (Auto) Seg Neutrophils % Seg Neuts % (Manual) Baso # (Auto) Lymphocytes % (Manual) Monocytes % (Manual) Eosinophils % (Manual) Basophils % (Manual) Seg Neutrophils # Seg Neutrophils # Man Lymphocytes # (Manual) Monocytes # (Manual) Eosinophils # (Manual) Nucleated RBC % Basophils # (Manual) PT INR APTT Heparin Anti-Xa Level ABG pH POC ABG pO2 ABG pO2 ABG HCO3 ABG O2 Saturation ABG Base Excess POC ABG pCO2 ABG Hemoglobin ABG Oxyhemoglobin ABG Sodium ABG Chloride ABG Glucose Oxyhemoglobin Carboxyhemoglobin Sodium Potassium Chloride Carbon Dioxide BUN Creatinine 0.5 L Glucose 128 H POC Glucose 136 H 109 H Lactic Acid Calcium Phosphorus Magnesium AST ALT Lactate Dehydrogenase Total Bilirubin Direct Bilirubin CK-MB (CK-2) C-Reactive Protein NT-Pro-B Natriuret Pep Total Protein Albumin Arterial Blood Glucose Arterial Blood Ionized Calcium Urine WBC (Auto) Urine Creatinine Digoxin 12/12/19 12/12/19 12/12/19 00:03 05:53 05:53 WBC RBC Hgb 8.8 L Hct 27.6 L MCHC RDW MCV MCH Lymph % (Auto) [place] % (Auto) [place] # Eos # Lymph # (Auto) [place] # (Auto) Eos # (Auto) Seg Neutrophils % Seg Neuts % (Manual) Baso # (Auto) Lymphocytes % (Manual) Monocytes % (Manual) Eosinophils % (Manual) Basophils % (Manual) Seg Neutrophils # Seg Neutrophils # Man Lymphocytes # (Manual) Monocytes # (Manual) Eosinophils # (Manual) Nucleated RBC % Basophils # (Manual) PT INR APTT Heparin Anti-Xa Level 0.22 L ABG pH POC ABG pO2 ABG pO2 ABG HCO3 ABG O2 Saturation ABG Base Excess POC ABG pCO2 ABG Hemoglobin ABG Oxyhemoglobin ABG Sodium ABG Chloride ABG Glucose Oxyhemoglobin Carboxyhemoglobin Sodium Potassium Chloride Carbon Dioxide BUN Creatinine Glucose POC Glucose 116 H Lactic Acid Calcium Phosphorus Magnesium AST ALT Lactate Dehydrogenase Total Bilirubin Direct Bilirubin CK-MB (CK-2) C-Reactive Protein NT-Pro-B Natriuret Pep Total Protein Albumin Arterial Blood Glucose Arterial Blood Ionized Calcium Urine WBC (Auto) Urine Creatinine Digoxin 12/12/19 12/12/19 12/12/19 09:38 12:18 17:44 WBC RBC Hgb Hct MCHC RDW MCV MCH Lymph % (Auto) [place] % (Auto) [place] # Eos # Lymph # (Auto) [place] # (Auto) Eos # (Auto) Seg Neutrophils % Seg Neuts % (Manual) Baso # (Auto) Lymphocytes % (Manual) Monocytes % (Manual) Eosinophils % (Manual) Basophils % (Manual) Seg Neutrophils # Seg Neutrophils # Man Lymphocytes # (Manual) Monocytes # (Manual) Eosinophils # (Manual) Nucleated RBC % Basophils # (Manual) PT INR APTT Heparin Anti-Xa Level ABG pH POC ABG pO2 ABG pO2 ABG HCO3 ABG O2 Saturation ABG Base Excess POC ABG pCO2 ABG Hemoglobin ABG Oxyhemoglobin ABG Sodium ABG Chloride ABG Glucose Oxyhemoglobin Carboxyhemoglobin Sodium Potassium Chloride Carbon Dioxide BUN Creatinine Glucose POC Glucose 115 H 146 H 146 H Lactic Acid Calcium Phosphorus Magnesium AST ALT Lactate Dehydrogenase Total Bilirubin Direct Bilirubin CK-MB (CK-2) C-Reactive Protein NT-Pro-B Natriuret Pep Total Protein Albumin Arterial Blood Glucose Arterial Blood Ionized Calcium Urine WBC (Auto) Urine Creatinine Digoxin 12/12/19 12/13/19 12/13/19 23:33 05:32 05:32 WBC 13.1 H RBC 3.27 L Hgb 9.5 L Hct 29.3 L MCHC RDW 15.6 H MCV MCH Lymph % (Auto) [place] % (Auto) [place] # Eos # Lymph # (Auto) [place] # (Auto) Eos # (Auto) Seg Neutrophils % Seg Neuts % (Manual) 74.0 H Baso # (Auto) Lymphocytes % (Manual) 8.0 L Monocytes % (Manual) 9.0 H Eosinophils % (Manual) 5.0 H Basophils % (Manual) Seg Neutrophils # Seg Neutrophils # Man 9.7 H Lymphocytes # (Manual) 1.0 L Monocytes # (Manual) 1.2 H Eosinophils # (Manual) 0.7 H Nucleated RBC % Basophils # (Manual) PT INR APTT Heparin Anti-Xa Level 0.20 L ABG pH POC ABG pO2 ABG pO2 ABG HCO3 ABG O2 Saturation ABG Base Excess POC ABG pCO2 ABG Hemoglobin ABG Oxyhemoglobin ABG Sodium ABG Chloride ABG Glucose Oxyhemoglobin Carboxyhemoglobin Sodium Potassium Chloride Carbon Dioxide BUN Creatinine Glucose POC Glucose 126 H Lactic Acid Calcium Phosphorus Magnesium AST ALT Lactate Dehydrogenase Total Bilirubin Direct Bilirubin CK-MB (CK-2) C-Reactive Protein NT-Pro-B Natriuret Pep Total Protein Albumin Arterial Blood Glucose Arterial Blood Ionized Calcium Urine WBC (Auto) Urine Creatinine Digoxin 12/13/19 12/13/19 12/13/19 05:32 05:46 11:57 WBC RBC Hgb Hct MCHC RDW MCV MCH Lymph % (Auto) [place] % (Auto) [place] # Eos # Lymph # (Auto) [place] # (Auto) Eos # (Auto) Seg Neutrophils % Seg Neuts % (Manual) Baso # (Auto) Lymphocytes % (Manual) Monocytes % (Manual) Eosinophils % (Manual) Basophils % (Manual) Seg Neutrophils # Seg Neutrophils # Man Lymphocytes # (Manual) Monocytes # (Manual) Eosinophils # (Manual) Nucleated RBC % Basophils # (Manual) PT INR APTT Heparin Anti-Xa Level ABG pH POC ABG pO2 ABG pO2 ABG HCO3 ABG O2 Saturation ABG Base Excess POC ABG pCO2 ABG Hemoglobin ABG Oxyhemoglobin ABG Sodium ABG Chloride ABG Glucose Oxyhemoglobin Carboxyhemoglobin Sodium Potassium Chloride Carbon Dioxide 31 H BUN Creatinine 0.6 L Glucose 114 H POC Glucose 118 H 133 H Lactic Acid Calcium Phosphorus Magnesium AST ALT Lactate Dehydrogenase Total Bilirubin Direct Bilirubin CK-MB (CK-2) C-Reactive Protein NT-Pro-B Natriuret Pep Total Protein Albumin Arterial Blood Glucose Arterial Blood Ionized Calcium Urine WBC (Auto) Urine Creatinine Digoxin 12/13/19 12/13/19 12/14/19 17:44 23:46 05:32 WBC RBC Hgb Hct MCHC RDW MCV MCH Lymph % (Auto) [place] % (Auto) [place] # Eos # Lymph # (Auto) [place] # (Auto) Eos # (Auto) Seg Neutrophils % Seg Neuts % (Manual) Baso # (Auto) Lymphocytes % (Manual) Monocytes % (Manual) Eosinophils % (Manual) Basophils % (Manual) Seg Neutrophils # Seg Neutrophils # Man Lymphocytes # (Manual) Monocytes # (Manual) Eosinophils # (Manual) Nucleated RBC % Basophils # (Manual) PT INR APTT Heparin Anti-Xa Level ABG pH POC ABG pO2 ABG pO2 ABG HCO3 ABG O2 Saturation ABG Base Excess POC ABG pCO2 ABG Hemoglobin ABG Oxyhemoglobin ABG Sodium ABG Chloride ABG Glucose Oxyhemoglobin Carboxyhemoglobin Sodium Potassium Chloride Carbon Dioxide BUN Creatinine Glucose POC Glucose 161 H 126 H 139 H Lactic Acid Calcium Phosphorus Magnesium AST ALT Lactate Dehydrogenase Total Bilirubin Direct Bilirubin CK-MB (CK-2) C-Reactive Protein NT-Pro-B Natriuret Pep Total Protein Albumin Arterial Blood Glucose Arterial Blood Ionized Calcium Urine WBC (Auto) Urine Creatinine Digoxin 12/14/19 12/14/19 12/14/19 06:03 06:03 09:37 WBC RBC Hgb 9.6 L Hct 30.4 L MCHC RDW MCV MCH Lymph % (Auto) [place] % (Auto) [place] # Eos # Lymph # (Auto) [place] # (Auto) Eos # (Auto) Seg Neutrophils % Seg Neuts % (Manual) Baso # (Auto) Lymphocytes % (Manual) Monocytes % (Manual) Eosinophils % (Manual) Basophils % (Manual) Seg Neutrophils # Seg Neutrophils # Man Lymphocytes # (Manual) Monocytes # (Manual) Eosinophils # (Manual) Nucleated RBC % Basophils # (Manual) PT INR APTT Heparin Anti-Xa Level 0.24 L ABG pH POC ABG pO2 ABG pO2 ABG HCO3 ABG O2 Saturation ABG Base Excess POC ABG pCO2 ABG Hemoglobin ABG Oxyhemoglobin ABG Sodium ABG Chloride ABG Glucose Oxyhemoglobin Carboxyhemoglobin Sodium Potassium Chloride Carbon Dioxide BUN Creatinine 0.6 L Glucose 162 H POC Glucose Lactic Acid Calcium Phosphorus Magnesium AST 71 H ALT 118 H Lactate Dehydrogenase Total Bilirubin Direct Bilirubin CK-MB (CK-2) C-Reactive Protein NT-Pro-B Natriuret Pep Total Protein 6.2 L Albumin 2.3 L Arterial Blood Glucose Arterial Blood Ionized Calcium Urine WBC (Auto) Urine Creatinine Digoxin 09/12/14/19 12/15/19 12:06 18:18 00:19 WBC RBC Hgb Hct MCHC RDW MCV MCH Lymph % (Auto) [place] % (Auto) [place] # Eos # Lymph # (Auto) [place] # (Auto) Eos # (Auto) Seg Neutrophils % Seg Neuts % (Manual) Baso # (Auto) Lymphocytes % (Manual) Monocytes % (Manual) Eosinophils % (Manual) Basophils % (Manual) Seg Neutrophils # Seg Neutrophils # Man Lymphocytes # (Manual) Monocytes # (Manual) Eosinophils # (Manual) Nucleated RBC % Basophils # (Manual) PT INR APTT Heparin Anti-Xa Level ABG pH POC ABG pO2 ABG pO2 ABG HCO3 ABG O2 Saturation ABG Base Excess POC ABG pCO2 ABG Hemoglobin ABG Oxyhemoglobin ABG Sodium ABG Chloride ABG Glucose Oxyhemoglobin Carboxyhemoglobin Sodium Potassium Chloride Carbon Dioxide BUN Creatinine Glucose POC Glucose 147 H 166 H 123 H Lactic Acid Calcium Phosphorus Magnesium AST ALT Lactate Dehydrogenase Total Bilirubin Direct Bilirubin CK-MB (CK-2) C-Reactive Protein NT-Pro-B Natriuret Pep Total Protein Albumin Arterial Blood Glucose Arterial Blood Ionized Calcium Urine WBC (Auto) Urine Creatinine Digoxin 12/15/19 12/15/19 12/15/19 05:28 05:29 05:29 WBC 14.9 H RBC 3.19 L Hgb 9.1 L Hct 28.7 L MCHC RDW 16.0 H MCV MCH Lymph % (Auto) [place] % (Auto) [place] # Eos # Lymph # (Auto) [place] # (Auto) Eos # (Auto) Seg Neutrophils % Seg Neuts % (Manual) Baso # (Auto) Lymphocytes % (Manual) Monocytes % (Manual) Eosinophils % (Manual) Basophils % (Manual) Seg Neutrophils # Seg Neutrophils # Man Lymphocytes # (Manual) Monocytes # (Manual) Eosinophils # (Manual) Nucleated RBC % Basophils # (Manual) PT INR APTT Heparin Anti-Xa Level 0.19 L ABG pH POC ABG pO2 ABG pO2 ABG HCO3 ABG O2 Saturation ABG Base Excess POC ABG pCO2 ABG Hemoglobin ABG Oxyhemoglobin ABG Sodium ABG Chloride ABG Glucose Oxyhemoglobin Carboxyhemoglobin Sodium Potassium Chloride Carbon Dioxide BUN Creatinine 0.6 L Glucose 110 H POC Glucose Lactic Acid Calcium Phosphorus Magnesium AST ALT Lactate Dehydrogenase Total Bilirubin Direct Bilirubin CK-MB (CK-2) C-Reactive Protein NT-Pro-B Natriuret Pep Total Protein Albumin Arterial Blood Glucose Arterial Blood Ionized Calcium Urine WBC (Auto) Urine Creatinine Digoxin 12/15/19 12/15/19 12/15/19 05:53 11:50 17:26 WBC RBC Hgb Hct MCHC RDW MCV MCH Lymph % (Auto) [place] % (Auto) [place] # Eos # Lymph # (Auto) [place] # (Auto) Eos # (Auto) Seg Neutrophils % Seg Neuts % (Manual) Baso # (Auto) Lymphocytes % (Manual) Monocytes % (Manual) Eosinophils % (Manual) Basophils % (Manual) Seg Neutrophils # Seg Neutrophils # Man Lymphocytes # (Manual) Monocytes # (Manual) Eosinophils # (Manual) Nucleated RBC % Basophils # (Manual) PT INR APTT Heparin Anti-Xa Level ABG pH POC ABG pO2 ABG pO2 ABG HCO3 ABG O2 Saturation ABG Base Excess POC ABG pCO2 ABG Hemoglobin ABG Oxyhemoglobin ABG Sodium ABG Chloride ABG Glucose Oxyhemoglobin Carboxyhemoglobin Sodium Potassium Chloride Carbon Dioxide BUN Creatinine Glucose POC Glucose 119 H 132 H 128 H Lactic Acid Calcium Phosphorus Magnesium AST ALT Lactate Dehydrogenase Total Bilirubin Direct Bilirubin CK-MB (CK-2) C-Reactive Protein NT-Pro-B Natriuret Pep Total Protein Albumin Arterial Blood Glucose Arterial Blood Ionized Calcium Urine WBC (Auto) Urine Creatinine Digoxin 12/15/19 12/16/19 12/16/19 23:11 05:30 05:46 WBC RBC Hgb 8.8 L Hct 27.9 L MCHC RDW MCV MCH Lymph % (Auto) [place] % (Auto) [place] # Eos # Lymph # (Auto) [place] # (Auto) Eos # (Auto) Seg Neutrophils % Seg Neuts % (Manual) Baso # (Auto) Lymphocytes % (Manual) Monocytes % (Manual) Eosinophils % (Manual) Basophils % (Manual) Seg Neutrophils # Seg Neutrophils # Man Lymphocytes # (Manual) Monocytes # (Manual) Eosinophils # (Manual) Nucleated RBC % Basophils # (Manual) PT INR APTT Heparin Anti-Xa Level ABG pH POC ABG pO2 ABG pO2 ABG HCO3 ABG O2 Saturation ABG Base Excess POC ABG pCO2 ABG Hemoglobin ABG Oxyhemoglobin ABG Sodium ABG Chloride ABG Glucose Oxyhemoglobin Carboxyhemoglobin Sodium Potassium Chloride Carbon Dioxide BUN Creatinine Glucose POC Glucose 150 H 134 H Lactic Acid Calcium Phosphorus Magnesium AST ALT Lactate Dehydrogenase Total Bilirubin Direct Bilirubin CK-MB (CK-2) C-Reactive Protein NT-Pro-B Natriuret Pep Total Protein Albumin Arterial Blood Glucose Arterial Blood Ionized Calcium Urine WBC (Auto) Urine Creatinine Digoxin 12/16/19 12/16/19 12/16/19 05:46 05:46 11:44 WBC RBC Hgb Hct MCHC RDW MCV MCH Lymph % (Auto) [place] % (Auto) [place] # Eos # Lymph # (Auto) [place] # (Auto) Eos # (Auto) Seg Neutrophils % Seg Neuts % (Manual) Baso # (Auto) Lymphocytes % (Manual) Monocytes % (Manual) Eosinophils % (Manual) Basophils % (Manual) Seg Neutrophils # Seg Neutrophils # Man Lymphocytes # (Manual) Monocytes # (Manual) Eosinophils # (Manual) Nucleated RBC % Basophils # (Manual) PT INR APTT Heparin Anti-Xa Level 0.20 L ABG pH POC ABG pO2 ABG pO2 ABG HCO3 ABG O2 Saturation ABG Base Excess POC ABG pCO2 ABG Hemoglobin ABG Oxyhemoglobin ABG Sodium ABG Chloride ABG Glucose Oxyhemoglobin Carboxyhemoglobin Sodium Potassium Chloride Carbon Dioxide 31 H BUN Creatinine 0.5 L Glucose 147 H POC Glucose 164 H Lactic Acid Calcium Phosphorus Magnesium AST ALT Lactate Dehydrogenase Total Bilirubin Direct Bilirubin CK-MB (CK-2) C-Reactive Protein NT-Pro-B Natriuret Pep Total Protein Albumin Arterial Blood Glucose Arterial Blood Ionized Calcium Urine WBC (Auto) Urine Creatinine Digoxin 12/16/19 12/16/19 12/17/19 17:17 23:49 05:30 WBC 13.9 H RBC 3.27 L Hgb 9.4 L Hct 29.2 L MCHC RDW 16.0 H MCV MCH Lymph % (Auto) [place] % (Auto) 8.8 H [place] # Eos # Lymph # (Auto) [place] # (Auto) 1.2 H Eos # (Auto) 0.5 H Seg Neutrophils % 70.5 H Seg Neuts % (Manual) Baso # (Auto) 0.2 H Lymphocytes % (Manual) Monocytes % (Manual) Eosinophils % (Manual) Basophils % (Manual) Seg Neutrophils # 9.8 H Seg Neutrophils # Man Lymphocytes # (Manual) Monocytes # (Manual) Eosinophils # (Manual) Nucleated RBC % Basophils # (Manual) PT INR APTT Heparin Anti-Xa Level ABG pH POC ABG pO2 ABG pO2 ABG HCO3 ABG O2 Saturation ABG Base Excess POC ABG pCO2 ABG Hemoglobin ABG Oxyhemoglobin ABG Sodium ABG Chloride ABG Glucose Oxyhemoglobin Carboxyhemoglobin Sodium Potassium Chloride Carbon Dioxide BUN Creatinine Glucose POC Glucose 162 H 144 H Lactic Acid Calcium Phosphorus Magnesium AST ALT Lactate Dehydrogenase Total Bilirubin Direct Bilirubin CK-MB (CK-2) C-Reactive Protein NT-Pro-B Natriuret Pep Total Protein Albumin Arterial Blood Glucose Arterial Blood Ionized Calcium Urine WBC (Auto) Urine Creatinine Digoxin 12/17/19 12/17/19 12/17/19 05:30 06:06 11:50 WBC RBC Hgb Hct MCHC RDW MCV MCH Lymph % (Auto) [place] % (Auto) [place] # Eos # Lymph # (Auto) [place] # (Auto) Eos # (Auto) Seg Neutrophils % Seg Neuts % (Manual) Baso # (Auto) Lymphocytes % (Manual) Monocytes % (Manual) Eosinophils % (Manual) Basophils % (Manual) Seg Neutrophils # Seg Neutrophils # Man Lymphocytes # (Manual) Monocytes # (Manual) Eosinophils # (Manual) Nucleated RBC % Basophils # (Manual) PT INR APTT Heparin Anti-Xa Level ABG pH POC ABG pO2 ABG pO2 ABG HCO3 ABG O2 Saturation ABG Base Excess POC ABG pCO2 ABG Hemoglobin ABG Oxyhemoglobin ABG Sodium ABG Chloride ABG Glucose Oxyhemoglobin Carboxyhemoglobin Sodium Potassium Chloride 97.4 L Carbon Dioxide 32 H BUN Creatinine 0.5 L Glucose 135 H POC Glucose 151 H 140 H Lactic Acid Calcium Phosphorus Magnesium AST ALT Lactate Dehydrogenase Total Bilirubin Direct Bilirubin CK-MB (CK-2) C-Reactive Protein NT-Pro-B Natriuret Pep Total Protein Albumin Arterial Blood Glucose Arterial Blood Ionized Calcium Urine WBC (Auto) Urine Creatinine Digoxin 12/17/19 12/17/19 12/18/19 17:50 23:46 05:17 WBC RBC Hgb 8.8 L Hct 28.0 L MCHC RDW MCV MCH Lymph % (Auto) [place] % (Auto) [place] # Eos # Lymph # (Auto) [place] # (Auto) Eos # (Auto) Seg Neutrophils % Seg Neuts % (Manual) Baso # (Auto) Lymphocytes % (Manual) Monocytes % (Manual) Eosinophils % (Manual) Basophils % (Manual) Seg Neutrophils # Seg Neutrophils # Man Lymphocytes # (Manual) Monocytes # (Manual) Eosinophils # (Manual) Nucleated RBC % Basophils # (Manual) PT INR APTT Heparin Anti-Xa Level ABG pH POC ABG pO2 ABG pO2 ABG HCO3 ABG O2 Saturation ABG Base Excess POC ABG pCO2 ABG Hemoglobin ABG Oxyhemoglobin ABG Sodium ABG Chloride ABG Glucose Oxyhemoglobin Carboxyhemoglobin Sodium Potassium Chloride Carbon Dioxide BUN Creatinine Glucose POC Glucose 158 H 150 H Lactic Acid Calcium Phosphorus Magnesium AST ALT Lactate Dehydrogenase Total Bilirubin Direct Bilirubin CK-MB (CK-2) C-Reactive Protein NT-Pro-B Natriuret Pep Total Protein Albumin Arterial Blood Glucose Arterial Blood Ionized Calcium Urine WBC (Auto) Urine Creatinine Digoxin 12/18/19 12/18/19 12/18/19 05:17 05:49 11:12 WBC RBC Hgb Hct MCHC RDW MCV MCH Lymph % (Auto) [place] % (Auto) [place] # Eos # Lymph # (Auto) [place] # (Auto) Eos # (Auto) Seg Neutrophils % Seg Neuts % (Manual) Baso # (Auto) Lymphocytes % (Manual) Monocytes % (Manual) Eosinophils % (Manual) Basophils % (Manual) Seg Neutrophils # Seg Neutrophils # Man Lymphocytes # (Manual) Monocytes # (Manual) Eosinophils # (Manual) Nucleated RBC % Basophils # (Manual) PT INR APTT Heparin Anti-Xa Level 0.16 L ABG pH POC ABG pO2 ABG pO2 ABG HCO3 ABG O2 Saturation ABG Base Excess POC ABG pCO2 ABG Hemoglobin ABG Oxyhemoglobin ABG Sodium ABG Chloride ABG Glucose Oxyhemoglobin Carboxyhemoglobin Sodium Potassium Chloride Carbon Dioxide BUN Creatinine Glucose POC Glucose 127 H 191 H Lactic Acid Calcium Phosphorus Magnesium AST ALT Lactate Dehydrogenase Total Bilirubin Direct Bilirubin CK-MB (CK-2) C-Reactive Protein NT-Pro-B Natriuret Pep Total Protein Albumin Arterial Blood Glucose Arterial Blood Ionized Calcium Urine WBC (Auto) Urine Creatinine Digoxin 12/18/19 12/18/19 12/19/19 17:03 20:16 00:08 WBC RBC Hgb Hct MCHC RDW MCV MCH Lymph % (Auto) [place] % (Auto) [place] # Eos # Lymph # (Auto) [place] # (Auto) Eos # (Auto) Seg Neutrophils % Seg Neuts % (Manual) Baso # (Auto) Lymphocytes % (Manual) Monocytes % (Manual) Eosinophils % (Manual) Basophils % (Manual) Seg Neutrophils # Seg Neutrophils # Man Lymphocytes # (Manual) Monocytes # (Manual) Eosinophils # (Manual) Nucleated RBC % Basophils # (Manual) PT INR APTT Heparin Anti-Xa Level ABG pH POC ABG pO2 ABG pO2 ABG HCO3 ABG O2 Saturation ABG Base Excess POC ABG pCO2 ABG Hemoglobin ABG Oxyhemoglobin ABG Sodium ABG Chloride ABG Glucose Oxyhemoglobin Carboxyhemoglobin Sodium Potassium Chloride Carbon Dioxide BUN Creatinine Glucose POC Glucose 133 H 128 H 129 H Lactic Acid Calcium Phosphorus Magnesium AST ALT Lactate Dehydrogenase Total Bilirubin Direct Bilirubin CK-MB (CK-2) C-Reactive Protein NT-Pro-B Natriuret Pep Total Protein Albumin Arterial Blood Glucose Arterial Blood Ionized Calcium Urine WBC (Auto) Urine Creatinine Digoxin 12/19/19 12/19/19 12/19/19 04:45 04:45 05:35 WBC RBC Hgb Hct MCHC RDW MCV MCH Lymph % (Auto) [place] % (Auto) [place] # Eos # Lymph # (Auto) [place] # (Auto) Eos # (Auto) Seg Neutrophils % Seg Neuts % (Manual) Baso # (Auto) Lymphocytes % (Manual) Monocytes % (Manual) Eosinophils % (Manual) Basophils % (Manual) Seg Neutrophils # Seg Neutrophils # Man Lymphocytes # (Manual) Monocytes # (Manual) Eosinophils # (Manual) Nucleated RBC % Basophils # (Manual) PT INR APTT Heparin Anti-Xa Level 0.17 L ABG pH POC ABG pO2 ABG pO2 ABG HCO3 ABG O2 Saturation ABG Base Excess POC ABG pCO2 ABG Hemoglobin ABG Oxyhemoglobin ABG Sodium ABG Chloride ABG Glucose Oxyhemoglobin Carboxyhemoglobin Sodium Potassium Chloride Carbon Dioxide BUN Creatinine Glucose POC Glucose 120 H Lactic Acid Calcium Phosphorus Magnesium AST ALT Lactate Dehydrogenase 228 H Total Bilirubin Direct Bilirubin CK-MB (CK-2) C-Reactive Protein NT-Pro-B Natriuret Pep Total Protein Albumin Arterial Blood Glucose Arterial Blood Ionized Calcium Urine WBC (Auto) Urine Creatinine Digoxin 12/19/19 12/19/19 12/19/19 09:20 11:32 11:32 WBC 14.6 H RBC 3.08 L Hgb 9.0 L Hct 26.8 L MCHC RDW 15.9 H MCV MCH Lymph % (Auto) [place] % (Auto) [place] # Eos # Lymph # (Auto) [place] # (Auto) Eos # (Auto) Seg Neutrophils % Seg Neuts % (Manual) 82.0 H Baso # (Auto) Lymphocytes % (Manual) 10.0 L Monocytes % (Manual) Eosinophils % (Manual) Basophils % (Manual) Seg Neutrophils # Seg Neutrophils # Man 12.0 H Lymphocytes # (Manual) Monocytes # (Manual) 0.9 H Eosinophils # (Manual) Nucleated RBC % 1.0 H Basophils # (Manual) PT INR APTT Heparin Anti-Xa Level ABG pH 7.451 H POC ABG pO2 ABG pO2 62.6 L ABG HCO3 33.2 H ABG O2 Saturation 93.8 L ABG Base Excess 8.3 H POC ABG pCO2 ABG Hemoglobin 8.3 L ABG Oxyhemoglobin ABG Sodium ABG Chloride ABG Glucose Oxyhemoglobin 91.9 L Carboxyhemoglobin Sodium Potassium Chloride 95.0 L Carbon Dioxide 33 H BUN 22 H Creatinine 0.6 L Glucose 150 H POC Glucose Lactic Acid Calcium Phosphorus Magnesium AST ALT Lactate Dehydrogenase Total Bilirubin Direct Bilirubin CK-MB (CK-2) C-Reactive Protein NT-Pro-B Natriuret Pep Total Protein 6.2 L Albumin 2.4 L Arterial Blood Glucose Arterial Blood Ionized Calcium Urine WBC (Auto) Urine Creatinine Digoxin 12/19/19 12/19/19 12/20/19 11:56 18:17 00:09 WBC RBC Hgb Hct MCHC RDW MCV MCH Lymph % (Auto) [place] % (Auto) [place] # Eos # Lymph # (Auto) [place] # (Auto) Eos # (Auto) Seg Neutrophils % Seg Neuts % (Manual) Baso # (Auto) Lymphocytes % (Manual) Monocytes % (Manual) Eosinophils % (Manual) Basophils % (Manual) Seg Neutrophils # Seg Neutrophils # Man Lymphocytes # (Manual) Monocytes # (Manual) Eosinophils # (Manual) Nucleated RBC % Basophils # (Manual) PT INR APTT Heparin Anti-Xa Level ABG pH POC ABG pO2 ABG pO2 ABG HCO3 ABG O2 Saturation ABG Base Excess POC ABG pCO2 ABG Hemoglobin ABG Oxyhemoglobin ABG Sodium ABG Chloride ABG Glucose Oxyhemoglobin Carboxyhemoglobin Sodium Potassium Chloride Carbon Dioxide BUN Creatinine Glucose POC Glucose 156 H 156 H 155 H Lactic Acid Calcium Phosphorus Magnesium AST ALT Lactate Dehydrogenase Total Bilirubin Direct Bilirubin CK-MB (CK-2) C-Reactive Protein NT-Pro-B Natriuret Pep Total Protein Albumin Arterial Blood Glucose Arterial Blood Ionized Calcium Urine WBC (Auto) Urine Creatinine Digoxin 12/20/19 12/20/1912/19/20 05:26 06:02 18:17 WBC RBC Hgb Hct MCHC RDW MCV MCH Lymph % (Auto) [place] % (Auto) [place] # Eos # Lymph # (Auto) [place] # (Auto) Eos # (Auto) Seg Neutrophils % Seg Neuts % (Manual) Baso # (Auto) Lymphocytes % (Manual) Monocytes % (Manual) Eosinophils % (Manual) Basophils % (Manual) Seg Neutrophils # Seg Neutrophils # Man Lymphocytes # (Manual) Monocytes # (Manual) Eosinophils # (Manual) Nucleated RBC % Basophils # (Manual) PT INR APTT Heparin Anti-Xa Level 0.19 L ABG pH POC ABG pO2 ABG pO2 ABG HCO3 ABG O2 Saturation ABG Base Excess POC ABG pCO2 ABG Hemoglobin ABG Oxyhemoglobin ABG Sodium ABG Chloride ABG Glucose Oxyhemoglobin Carboxyhemoglobin Sodium Potassium Chloride Carbon Dioxide BUN Creatinine Glucose POC Glucose 137 H 128 H Lactic Acid Calcium Phosphorus Magnesium AST ALT Lactate Dehydrogenase Total Bilirubin Direct Bilirubin CK-MB (CK-2) C-Reactive Protein NT-Pro-B Natriuret Pep Total Protein Albumin Arterial Blood Glucose Arterial Blood Ionized Calcium Urine WBC (Auto) Urine Creatinine Digoxin 12/20/19 12/21/19 12/21/19 23:34 05:31 05:31 WBC 12.7 H RBC 3.09 L Hgb 8.9 L Hct 27.4 L MCHC RDW 15.8 H MCV MCH Lymph % (Auto) 12.1 L [place] % (Auto) 7.8 H [place] # Eos # Lymph # (Auto) [place] # (Auto) 1.0 H Eos # (Auto) Seg Neutrophils % 77.1 H Seg Neuts % (Manual) Baso # (Auto) Lymphocytes % (Manual) Monocytes % (Manual) Eosinophils % (Manual) Basophils % (Manual) Seg Neutrophils # 9.8 H Seg Neutrophils # Man Lymphocytes # (Manual) Monocytes # (Manual) Eosinophils # (Manual) Nucleated RBC % Basophils # (Manual) PT INR APTT Heparin Anti-Xa Level ABG pH POC ABG pO2 ABG pO2 ABG HCO3 ABG O2 Saturation ABG Base Excess POC ABG pCO2 ABG Hemoglobin ABG Oxyhemoglobin ABG Sodium ABG Chloride ABG Glucose Oxyhemoglobin Carboxyhemoglobin Sodium Potassium Chloride 96.9 L Carbon Dioxide 37 H BUN 27 H Creatinine 0.7 L Glucose 140 H POC Glucose 145 H Lactic Acid Calcium Phosphorus Magnesium AST ALT Lactate Dehydrogenase Total Bilirubin Direct Bilirubin CK-MB (CK-2) C-Reactive Protein NT-Pro-B Natriuret Pep Total Protein Albumin Arterial Blood Glucose Arterial Blood Ionized Calcium Urine WBC (Auto) Urine Creatinine Digoxin 12/21/19 12/21/19 12/21/19 05:38 10:13 11:51 WBC RBC Hgb Hct MCHC RDW MCV MCH Lymph % (Auto) [place] % (Auto) [place] # Eos # Lymph # (Auto) [place] # (Auto) Eos # (Auto) Seg Neutrophils % Seg Neuts % (Manual) Baso # (Auto) Lymphocytes % (Manual) Monocytes % (Manual) Eosinophils % (Manual) Basophils % (Manual) Seg Neutrophils # Seg Neutrophils # Man Lymphocytes # (Manual) Monocytes # (Manual) Eosinophils # (Manual) Nucleated RBC % Basophils # (Manual) PT INR APTT 23.9 L Heparin Anti-Xa Level < 0.10 L ABG pH POC ABG pO2 ABG pO2 ABG HCO3 ABG O2 Saturation ABG Base Excess POC ABG pCO2 ABG Hemoglobin ABG Oxyhemoglobin ABG Sodium ABG Chloride ABG Glucose Oxyhemoglobin Carboxyhemoglobin Sodium Potassium Chloride Carbon Dioxide BUN Creatinine Glucose POC Glucose 151 H 145 H Lactic Acid Calcium Phosphorus Magnesium AST ALT Lactate Dehydrogenase Total Bilirubin Direct Bilirubin CK-MB (CK-2) C-Reactive Protein NT-Pro-B Natriuret Pep Total Protein Albumin Arterial Blood Glucose Arterial Blood Ionized Calcium Urine WBC (Auto) Urine Creatinine Digoxin 12/21/19 12/22/19 12/22/19 17:16 00:01 01:33 WBC RBC Hgb Hct MCHC RDW MCV MCH Lymph % (Auto) [place] % (Auto) [place] # Eos # Lymph # (Auto) [place] # (Auto) Eos # (Auto) Seg Neutrophils % Seg Neuts % (Manual) Baso # (Auto) Lymphocytes % (Manual) Monocytes % (Manual) Eosinophils % (Manual) Basophils % (Manual) Seg Neutrophils # Seg Neutrophils # Man Lymphocytes # (Manual) Monocytes # (Manual) Eosinophils # (Manual) Nucleated RBC % Basophils # (Manual) PT INR APTT Heparin Anti-Xa Level 0.10 L ABG pH POC ABG pO2 ABG pO2 ABG HCO3 ABG O2 Saturation ABG Base Excess POC ABG pCO2 ABG Hemoglobin ABG Oxyhemoglobin ABG Sodium ABG Chloride ABG Glucose Oxyhemoglobin Carboxyhemoglobin Sodium Potassium Chloride Carbon Dioxide BUN Creatinine Glucose POC Glucose 167 H 179 H Lactic Acid Calcium Phosphorus Magnesium AST ALT Lactate Dehydrogenase Total Bilirubin Direct Bilirubin CK-MB (CK-2) C-Reactive Protein NT-Pro-B Natriuret Pep Total Protein Albumin Arterial Blood Glucose Arterial Blood Ionized Calcium Urine WBC (Auto) Urine Creatinine Digoxin 12/22/19 12/22/19 12/22/19 03:22 05:10 05:10 WBC 13.8 H RBC 3.20 L Hgb 8.9 L Hct 28.1 L MCHC RDW 15.9 H MCV MCH Lymph % (Auto) [place] % (Auto) [place] # Eos # Lymph # (Auto) [place] # (Auto) Eos # (Auto) Seg Neutrophils % Seg Neuts % (Manual) Baso # (Auto) Lymphocytes % (Manual) Monocytes % (Manual) Eosinophils % (Manual) Basophils % (Manual) Seg Neutrophils # Seg Neutrophils # Man Lymphocytes # (Manual) Monocytes # (Manual) Eosinophils # (Manual) Nucleated RBC % Basophils # (Manual) PT INR APTT Heparin Anti-Xa Level ABG pH POC ABG pO2 52.3 L ABG pO2 ABG HCO3 ABG O2 Saturation ABG Base Excess POC ABG pCO2 52.9 H ABG Hemoglobin 10.7 L ABG Oxyhemoglobin 84 L ABG Sodium ABG Chloride ABG Glucose Oxyhemoglobin Carboxyhemoglobin Sodium Potassium Chloride 96.6 L Carbon Dioxide BUN 25 H Creatinine 0.7 L Glucose 129 H POC Glucose Lactic Acid Calcium Phosphorus Magnesium AST ALT Lactate Dehydrogenase Total Bilirubin Direct Bilirubin CK-MB (CK-2) C-Reactive Protein NT-Pro-B Natriuret Pep Total Protein Albumin Arterial Blood Glucose Arterial Blood Ionized Calcium Urine WBC (Auto) Urine Creatinine Digoxin 12/22/19 12/22/19 12/22/19 05:18 12:32 12:43 WBC RBC Hgb Hct MCHC RDW MCV MCH Lymph % (Auto) [place] % (Auto) [place] # Eos # Lymph # (Auto) [place] # (Auto) Eos # (Auto) Seg Neutrophils % Seg Neuts % (Manual) Baso # (Auto) Lymphocytes % (Manual) Monocytes % (Manual) Eosinophils % (Manual) Basophils % (Manual) Seg Neutrophils # Seg Neutrophils # Man Lymphocytes # (Manual) Monocytes # (Manual) Eosinophils # (Manual) Nucleated RBC % Basophils # (Manual) PT INR APTT Heparin Anti-Xa Level 0.18 L ABG pH POC ABG pO2 ABG pO2 ABG HCO3 ABG O2 Saturation ABG Base Excess POC ABG pCO2 ABG Hemoglobin ABG Oxyhemoglobin ABG Sodium ABG Chloride ABG Glucose Oxyhemoglobin Carboxyhemoglobin Sodium Potassium Chloride Carbon Dioxide BUN Creatinine Glucose POC Glucose 131 H 208 H Lactic Acid Calcium Phosphorus Magnesium AST ALT Lactate Dehydrogenase Total Bilirubin Direct Bilirubin CK-MB (CK-2) C-Reactive Protein NT-Pro-B Natriuret Pep Total Protein Albumin Arterial Blood Glucose Arterial Blood Ionized Calcium Urine WBC (Auto) Urine Creatinine Digoxin 12/22/19 12/22/19 12/23/19 17:44 23:20 03:51 WBC 15.2 H RBC 3.43 L Hgb 9.6 L Hct 30.3 L MCHC RDW 15.9 H MCV MCH Lymph % (Auto) [place] % (Auto) [place] # Eos # Lymph # (Auto) [place] # (Auto) Eos # (Auto) Seg Neutrophils % Seg Neuts % (Manual) Baso # (Auto) Lymphocytes % (Manual) Monocytes % (Manual) Eosinophils % (Manual) Basophils % (Manual) Seg Neutrophils # Seg Neutrophils # Man Lymphocytes # (Manual) Monocytes # (Manual) Eosinophils # (Manual) Nucleated RBC % Basophils # (Manual) PT INR APTT Heparin Anti-Xa Level ABG pH POC ABG pO2 ABG pO2 ABG HCO3 ABG O2 Saturation ABG Base Excess POC ABG pCO2 ABG Hemoglobin ABG Oxyhemoglobin ABG Sodium ABG Chloride ABG Glucose Oxyhemoglobin Carboxyhemoglobin Sodium Potassium Chloride Carbon Dioxide BUN Creatinine Glucose POC Glucose 209 H 119 H Lactic Acid Calcium Phosphorus Magnesium AST ALT Lactate Dehydrogenase Total Bilirubin Direct Bilirubin CK-MB (CK-2) C-Reactive Protein NT-Pro-B Natriuret Pep Total Protein Albumin Arterial Blood Glucose Arterial Blood Ionized Calcium Urine WBC (Auto) Urine Creatinine Digoxin 12/23/19 12/23/19 12/23/19 03:51 05:31 12:09 WBC RBC Hgb Hct MCHC RDW MCV MCH Lymph % (Auto) [place] % (Auto) [place] # Eos # Lymph # (Auto) [place] # (Auto) Eos # (Auto) Seg Neutrophils % Seg Neuts % (Manual) Baso # (Auto) Lymphocytes % (Manual) Monocytes % (Manual) Eosinophils % (Manual) Basophils % (Manual) Seg Neutrophils # Seg Neutrophils # Man Lymphocytes # (Manual) Monocytes # (Manual) Eosinophils # (Manual) Nucleated RBC % Basophils # (Manual) PT INR APTT Heparin Anti-Xa Level ABG pH POC ABG pO2 ABG pO2 ABG HCO3 ABG O2 Saturation ABG Base Excess POC ABG pCO2 ABG Hemoglobin ABG Oxyhemoglobin ABG Sodium ABG Chloride ABG Glucose Oxyhemoglobin Carboxyhemoglobin Sodium Potassium Chloride 97.2 L Carbon Dioxide 31 H BUN 23 H Creatinine 0.6 L Glucose 153 H POC Glucose 149 H 144 H Lactic Acid Calcium Phosphorus Magnesium AST ALT Lactate Dehydrogenase Total Bilirubin Direct Bilirubin CK-MB (CK-2) C-Reactive Protein NT-Pro-B Natriuret Pep Total Protein Albumin Arterial Blood Glucose Arterial Blood Ionized Calcium Urine WBC (Auto) Urine Creatinine Digoxin 12/23/19 12/23/19 12/23/19 15:30 17:49 23:31 WBC RBC Hgb Hct MCHC RDW MCV MCH Lymph % (Auto) [place] % (Auto) [place] # Eos # Lymph # (Auto) [place] # (Auto) Eos # (Auto) Seg Neutrophils % Seg Neuts % (Manual) Baso # (Auto) Lymphocytes % (Manual) Monocytes % (Manual) Eosinophils % (Manual) Basophils % (Manual) Seg Neutrophils # Seg Neutrophils # Man Lymphocytes # (Manual) Monocytes # (Manual) Eosinophils # (Manual) Nucleated RBC % Basophils # (Manual) PT INR APTT Heparin Anti-Xa Level 0.21 L ABG pH POC ABG pO2 ABG pO2 ABG HCO3 ABG O2 Saturation ABG Base Excess POC ABG pCO2 ABG Hemoglobin ABG Oxyhemoglobin ABG Sodium ABG Chloride ABG Glucose Oxyhemoglobin Carboxyhemoglobin Sodium Potassium Chloride Carbon Dioxide BUN Creatinine Glucose POC Glucose 192 H 151 H Lactic Acid Calcium Phosphorus Magnesium AST ALT Lactate Dehydrogenase Total Bilirubin Direct Bilirubin CK-MB (CK-2) C-Reactive Protein NT-Pro-B Natriuret Pep Total Protein Albumin Arterial Blood Glucose Arterial Blood Ionized Calcium Urine WBC (Auto) Urine Creatinine Digoxin 12/24/19 12/24/19 12/24/19 05:34 12:13 16:50 WBC RBC Hgb Hct MCHC RDW MCV MCH Lymph % (Auto) [place] % (Auto) [place] # Eos # Lymph # (Auto) [place] # (Auto) Eos # (Auto) Seg Neutrophils % Seg Neuts % (Manual) Baso # (Auto) Lymphocytes % (Manual) Monocytes % (Manual) Eosinophils % (Manual) Basophils % (Manual) Seg Neutrophils # Seg Neutrophils # Man Lymphocytes # (Manual) Monocytes # (Manual) Eosinophils # (Manual) Nucleated RBC % Basophils # (Manual) PT INR APTT Heparin Anti-Xa Level 0.16 L ABG pH POC ABG pO2 ABG pO2 ABG HCO3 ABG O2 Saturation ABG Base Excess POC ABG pCO2 ABG Hemoglobin ABG Oxyhemoglobin ABG Sodium ABG Chloride ABG Glucose Oxyhemoglobin Carboxyhemoglobin Sodium Potassium Chloride Carbon Dioxide BUN Creatinine Glucose POC Glucose 145 H 124 H Lactic Acid Calcium Phosphorus Magnesium AST ALT Lactate Dehydrogenase Total Bilirubin Direct Bilirubin CK-MB (CK-2) C-Reactive Protein NT-Pro-B Natriuret Pep Total Protein Albumin Arterial Blood Glucose Arterial Blood Ionized Calcium Urine WBC (Auto) Urine Creatinine Digoxin 12/24/19 12/25/19 12/25/19 17:53 00:14 04:18 WBC 12.9 H RBC 3.30 L Hgb 9.1 L Hct 28.8 L MCHC RDW 16.4 H MCV MCH Lymph % (Auto) [place] % (Auto) 7.8 H [place] # Eos # Lymph # (Auto) [place] # (Auto) 1.0 H Eos # (Auto) Seg Neutrophils % 75.5 H Seg Neuts % (Manual) Baso # (Auto) Lymphocytes % (Manual) Monocytes % (Manual) Eosinophils % (Manual) Basophils % (Manual) Seg Neutrophils # 9.7 H Seg Neutrophils # Man Lymphocytes # (Manual) Monocytes # (Manual) Eosinophils # (Manual) Nucleated RBC % Basophils # (Manual) PT INR APTT Heparin Anti-Xa Level ABG pH POC ABG pO2 ABG pO2 ABG HCO3 ABG O2 Saturation ABG Base Excess POC ABG pCO2 ABG Hemoglobin ABG Oxyhemoglobin ABG Sodium ABG Chloride ABG Glucose Oxyhemoglobin Carboxyhemoglobin Sodium Potassium Chloride Carbon Dioxide BUN Creatinine Glucose POC Glucose 164 H 148 H Lactic Acid Calcium Phosphorus Magnesium AST ALT Lactate Dehydrogenase Total Bilirubin Direct Bilirubin CK-MB (CK-2) C-Reactive Protein NT-Pro-B Natriuret Pep Total Protein Albumin Arterial Blood Glucose Arterial Blood Ionized Calcium Urine WBC (Auto) Urine Creatinine Digoxin 12/25/19 12/25/19 12/25/19 04:18 05:38 11:44 WBC RBC Hgb Hct MCHC RDW MCV MCH Lymph % (Auto) [place] % (Auto) [place] # Eos # Lymph # (Auto) [place] # (Auto) Eos # (Auto) Seg Neutrophils % Seg Neuts % (Manual) Baso # (Auto) Lymphocytes % (Manual) Monocytes % (Manual) Eosinophils % (Manual) Basophils % (Manual) Seg Neutrophils # Seg Neutrophils # Man Lymphocytes # (Manual) Monocytes # (Manual) Eosinophils # (Manual) Nucleated RBC % Basophils # (Manual) PT INR APTT Heparin Anti-Xa Level ABG pH POC ABG pO2 ABG pO2 ABG HCO3 ABG O2 Saturation ABG Base Excess POC ABG pCO2 ABG Hemoglobin ABG Oxyhemoglobin ABG Sodium ABG Chloride ABG Glucose Oxyhemoglobin Carboxyhemoglobin Sodium Potassium Chloride Carbon Dioxide 33 H BUN 27 H Creatinine 0.6 L Glucose 132 H POC Glucose 152 H 166 H Lactic Acid Calcium Phosphorus Magnesium AST ALT Lactate Dehydrogenase Total Bilirubin Direct Bilirubin CK-MB (CK-2) C-Reactive Protein NT-Pro-B Natriuret Pep Total Protein Albumin Arterial Blood Glucose Arterial Blood Ionized Calcium Urine WBC (Auto) Urine Creatinine Digoxin 12/25/19 12/26/19 12/26/19 18:29 00:17 00:18 WBC RBC Hgb Hct MCHC RDW MCV MCH Lymph % (Auto) [place] % (Auto) [place] # Eos # Lymph # (Auto) [place] # (Auto) Eos # (Auto) Seg Neutrophils % Seg Neuts % (Manual) Baso # (Auto) Lymphocytes % (Manual) Monocytes % (Manual) Eosinophils % (Manual) Basophils % (Manual) Seg Neutrophils # Seg Neutrophils # Man Lymphocytes # (Manual) Monocytes # (Manual) Eosinophils # (Manual) Nucleated RBC % Basophils # (Manual) PT INR APTT Heparin Anti-Xa Level ABG pH POC ABG pO2 ABG pO2 ABG HCO3 ABG O2 Saturation ABG Base Excess POC ABG pCO2 ABG Hemoglobin ABG Oxyhemoglobin ABG Sodium ABG Chloride ABG Glucose Oxyhemoglobin Carboxyhemoglobin Sodium Potassium Chloride 97.8 L Carbon Dioxide BUN 25 H Creatinine 0.6 L Glucose 140 H POC Glucose 194 H 151 H Lactic Acid Calcium Phosphorus Magnesium AST ALT Lactate Dehydrogenase Total Bilirubin Direct Bilirubin CK-MB (CK-2) C-Reactive Protein NT-Pro-B Natriuret Pep Total Protein Albumin Arterial Blood Glucose Arterial Blood Ionized Calcium Urine WBC (Auto) Urine Creatinine Digoxin 12/26/19 12/26/19 12/26/19 05:36 11:41 17:50 WBC RBC Hgb Hct MCHC RDW MCV MCH Lymph % (Auto) [place] % (Auto) [place] # Eos # Lymph # (Auto) [place] # (Auto) Eos # (Auto) Seg Neutrophils % Seg Neuts % (Manual) Baso # (Auto) Lymphocytes % (Manual) Monocytes % (Manual) Eosinophils % (Manual) Basophils % (Manual) Seg Neutrophils # Seg Neutrophils # Man Lymphocytes # (Manual) Monocytes # (Manual) Eosinophils # (Manual) Nucleated RBC % Basophils # (Manual) PT INR APTT Heparin Anti-Xa Level ABG pH POC ABG pO2 ABG pO2 ABG HCO3 ABG O2 Saturation ABG Base Excess POC ABG pCO2 ABG Hemoglobin ABG Oxyhemoglobin ABG Sodium ABG Chloride ABG Glucose Oxyhemoglobin Carboxyhemoglobin Sodium Potassium Chloride Carbon Dioxide BUN Creatinine Glucose POC Glucose 156 H 148 H 139 H Lactic Acid Calcium Phosphorus Magnesium AST ALT Lactate Dehydrogenase Total Bilirubin Direct Bilirubin CK-MB (CK-2) C-Reactive Protein NT-Pro-B Natriuret Pep Total Protein Albumin Arterial Blood Glucose Arterial Blood Ionized Calcium Urine WBC (Auto) Urine Creatinine Digoxin 12/26/19 12/27/19 12/27/19 23:19 05:34 12:02 WBC RBC Hgb Hct MCHC RDW MCV MCH Lymph % (Auto) [place] % (Auto) [place] # Eos # Lymph # (Auto) [place] # (Auto) Eos # (Auto) Seg Neutrophils % Seg Neuts % (Manual) Baso # (Auto) Lymphocytes % (Manual) Monocytes % (Manual) Eosinophils % (Manual) Basophils % (Manual) Seg Neutrophils # Seg Neutrophils # Man Lymphocytes # (Manual) Monocytes # (Manual) Eosinophils # (Manual) Nucleated RBC % Basophils # (Manual) PT INR APTT Heparin Anti-Xa Level ABG pH POC ABG pO2 ABG pO2 ABG HCO3 ABG O2 Saturation ABG Base Excess POC ABG pCO2 ABG Hemoglobin ABG Oxyhemoglobin ABG Sodium ABG Chloride ABG Glucose Oxyhemoglobin Carboxyhemoglobin Sodium Potassium Chloride Carbon Dioxide BUN Creatinine Glucose POC Glucose 161 H 145 H 157 H Lactic Acid Calcium Phosphorus Magnesium AST ALT Lactate Dehydrogenase Total Bilirubin Direct Bilirubin CK-MB (CK-2) C-Reactive Protein NT-Pro-B Natriuret Pep Total Protein Albumin Arterial Blood Glucose Arterial Blood Ionized Calcium Urine WBC (Auto) Urine Creatinine Digoxin 12/27/19 12/27/19 12/27/19 17:35 20:11 23:00 WBC RBC Hgb Hct MCHC RDW MCV MCH Lymph % (Auto) [place] % (Auto) [place] # Eos # Lymph # (Auto) [place] # (Auto) Eos # (Auto) Seg Neutrophils % Seg Neuts % (Manual) Baso # (Auto) Lymphocytes % (Manual) Monocytes % (Manual) Eosinophils % (Manual) Basophils % (Manual) Seg Neutrophils # Seg Neutrophils # Man Lymphocytes # (Manual) Monocytes # (Manual) Eosinophils # (Manual) Nucleated RBC % Basophils # (Manual) PT INR APTT Heparin Anti-Xa Level 0.19 L ABG pH POC ABG pO2 ABG pO2 ABG HCO3 ABG O2 Saturation ABG Base Excess POC ABG pCO2 ABG Hemoglobin ABG Oxyhemoglobin ABG Sodium ABG Chloride ABG Glucose Oxyhemoglobin Carboxyhemoglobin Sodium Potassium Chloride Carbon Dioxide BUN Creatinine Glucose POC Glucose 158 H 155 H Lactic Acid Calcium Phosphorus Magnesium AST ALT Lactate Dehydrogenase Total Bilirubin Direct Bilirubin CK-MB (CK-2) C-Reactive Protein NT-Pro-B Natriuret Pep Total Protein Albumin Arterial Blood Glucose Arterial Blood Ionized Calcium Urine WBC (Auto) Urine Creatinine Digoxin 12/27/19 12/28/19 12/28/19 23:45 02:41 02:41 WBC 13.0 H RBC 3.48 L Hgb 9.5 L Hct 30.6 L MCHC 31 L RDW 16.6 H MCV MCH 27 L Lymph % (Auto) 13.0 L [place] % (Auto) 8.0 H [place] # Eos # Lymph # (Auto) [place] # (Auto) 1.0 H Eos # (Auto) Seg Neutrophils % 76.3 H Seg Neuts % (Manual) Baso # (Auto) Lymphocytes % (Manual) Monocytes % (Manual) Eosinophils % (Manual) Basophils % (Manual) Seg Neutrophils # 9.9 H Seg Neutrophils # Man Lymphocytes # (Manual) Monocytes # (Manual) Eosinophils # (Manual) Nucleated RBC % Basophils # (Manual) PT INR APTT Heparin Anti-Xa Level ABG pH POC ABG pO2 ABG pO2 ABG HCO3 ABG O2 Saturation ABG Base Excess POC ABG pCO2 ABG Hemoglobin ABG Oxyhemoglobin ABG Sodium ABG Chloride ABG Glucose Oxyhemoglobin Carboxyhemoglobin Sodium Potassium Chloride Carbon Dioxide BUN 22 H Creatinine 0.6 L Glucose 101 H POC Glucose 130 H Lactic Acid Calcium Phosphorus Magnesium AST ALT Lactate Dehydrogenase Total Bilirubin Direct Bilirubin CK-MB (CK-2) C-Reactive Protein NT-Pro-B Natriuret Pep Total Protein Albumin Arterial Blood Glucose Arterial Blood Ionized Calcium Urine WBC (Auto) Urine Creatinine Digoxin 12/28/19 12/28/19 12/28/19 06:00 12:34 18:13 WBC RBC Hgb Hct MCHC RDW MCV MCH Lymph % (Auto) [place] % (Auto) [place] # Eos # Lymph # (Auto) [place] # (Auto) Eos # (Auto) Seg Neutrophils % Seg Neuts % (Manual) Baso # (Auto) Lymphocytes % (Manual) Monocytes % (Manual) Eosinophils % (Manual) Basophils % (Manual) Seg Neutrophils # Seg Neutrophils # Man Lymphocytes # (Manual) Monocytes # (Manual) Eosinophils # (Manual) Nucleated RBC % Basophils # (Manual) PT INR APTT Heparin Anti-Xa Level ABG pH POC ABG pO2 ABG pO2 ABG HCO3 ABG O2 Saturation ABG Base Excess POC ABG pCO2 ABG Hemoglobin ABG Oxyhemoglobin ABG Sodium ABG Chloride ABG Glucose Oxyhemoglobin Carboxyhemoglobin Sodium Potassium Chloride Carbon Dioxide BUN Creatinine Glucose POC Glucose 150 H 161 H 128 H Lactic Acid Calcium Phosphorus Magnesium AST ALT Lactate Dehydrogenase Total Bilirubin Direct Bilirubin CK-MB (CK-2) C-Reactive Protein NT-Pro-B Natriuret Pep Total Protein Albumin Arterial Blood Glucose Arterial Blood Ionized Calcium Urine WBC (Auto) Urine Creatinine Digoxin 12/28/19 12/29/19 12/29/19 23:36 05:21 11:40 WBC RBC Hgb Hct MCHC RDW MCV MCH Lymph % (Auto) [place] % (Auto) [place] # Eos # Lymph # (Auto) [place] # (Auto) Eos # (Auto) Seg Neutrophils % Seg Neuts % (Manual) Baso # (Auto) Lymphocytes % (Manual) Monocytes % (Manual) Eosinophils % (Manual) Basophils % (Manual) Seg Neutrophils # Seg Neutrophils # Man Lymphocytes # (Manual) Monocytes # (Manual) Eosinophils # (Manual) Nucleated RBC % Basophils # (Manual) PT INR APTT Heparin Anti-Xa Level ABG pH POC ABG pO2 ABG pO2 ABG HCO3 ABG O2 Saturation ABG Base Excess POC ABG pCO2 ABG Hemoglobin ABG Oxyhemoglobin ABG Sodium ABG Chloride ABG Glucose Oxyhemoglobin Carboxyhemoglobin Sodium Potassium Chloride Carbon Dioxide BUN Creatinine Glucose POC Glucose 137 H 136 H 166 H Lactic Acid Calcium Phosphorus Magnesium AST ALT Lactate Dehydrogenase Total Bilirubin Direct Bilirubin CK-MB (CK-2) C-Reactive Protein NT-Pro-B Natriuret Pep Total Protein Albumin Arterial Blood Glucose Arterial Blood Ionized Calcium Urine WBC (Auto) Urine Creatinine Digoxin 12/29/19 12/29/19 12/29/19 17:23 19:21 23:38 WBC RBC Hgb Hct MCHC RDW MCV MCH Lymph % (Auto) [place] % (Auto) [place] # Eos # Lymph # (Auto) [place] # (Auto) Eos # (Auto) Seg Neutrophils % Seg Neuts % (Manual) Baso # (Auto) Lymphocytes % (Manual) Monocytes % (Manual) Eosinophils % (Manual) Basophils % (Manual) Seg Neutrophils # Seg Neutrophils # Man Lymphocytes # (Manual) Monocytes # (Manual) Eosinophils # (Manual) Nucleated RBC % Basophils # (Manual) PT INR APTT Heparin Anti-Xa Level 0.20 L ABG pH POC ABG pO2 ABG pO2 ABG HCO3 ABG O2 Saturation ABG Base Excess POC ABG pCO2 ABG Hemoglobin ABG Oxyhemoglobin ABG Sodium ABG Chloride ABG Glucose Oxyhemoglobin Carboxyhemoglobin Sodium Potassium Chloride Carbon Dioxide BUN Creatinine Glucose POC Glucose 144 H 141 H Lactic Acid Calcium Phosphorus Magnesium AST ALT Lactate Dehydrogenase Total Bilirubin Direct Bilirubin CK-MB (CK-2) C-Reactive Protein NT-Pro-B Natriuret Pep Total Protein Albumin Arterial Blood Glucose Arterial Blood Ionized Calcium Urine WBC (Auto) Urine Creatinine Digoxin 12/30/19 12/30/19 12/30/19 03:58 03:58 04:59 WBC RBC 3.54 L Hgb 9.8 L Hct 30.7 L MCHC RDW 16.8 H MCV MCH Lymph % (Auto) [place] % (Auto) [place] # Eos # Lymph # (Auto) [place] # (Auto) Eos # (Auto) Seg Neutrophils % Seg Neuts % (Manual) Baso # (Auto) Lymphocytes % (Manual) Monocytes % (Manual) Eosinophils % (Manual) Basophils % (Manual) Seg Neutrophils # Seg Neutrophils # Man Lymphocytes # (Manual) Monocytes # (Manual) Eosinophils # (Manual) Nucleated RBC % Basophils # (Manual) PT INR APTT Heparin Anti-Xa Level ABG pH POC ABG pO2 ABG pO2 ABG HCO3 29.8 H ABG O2 Saturation ABG Base Excess 4.8 H POC ABG pCO2 ABG Hemoglobin 11.2 L ABG Oxyhemoglobin ABG Sodium ABG Chloride ABG Glucose Oxyhemoglobin 93.8 L Carboxyhemoglobin Sodium Potassium Chloride 97.8 L Carbon Dioxide BUN 26 H Creatinine Glucose 168 H POC Glucose Lactic Acid Calcium Phosphorus Magnesium AST ALT Lactate Dehydrogenase Total Bilirubin Direct Bilirubin CK-MB (CK-2) C-Reactive Protein NT-Pro-B Natriuret Pep Total Protein Albumin Arterial Blood Glucose Arterial Blood Ionized Calcium Urine WBC (Auto) Urine Creatinine Digoxin 12/30/19 12/30/19 12/30/19 05:45 11:34 17:28 WBC RBC Hgb Hct MCHC RDW MCV MCH Lymph % (Auto) [place] % (Auto) [place] # Eos # Lymph # (Auto) [place] # (Auto) Eos # (Auto) Seg Neutrophils % Seg Neuts % (Manual) Baso # (Auto) Lymphocytes % (Manual) Monocytes % (Manual) Eosinophils % (Manual) Basophils % (Manual) Seg Neutrophils # Seg Neutrophils # Man Lymphocytes # (Manual) Monocytes # (Manual) Eosinophils # (Manual) Nucleated RBC % Basophils # (Manual) PT INR APTT Heparin Anti-Xa Level ABG pH POC ABG pO2 ABG pO2 ABG HCO3 ABG O2 Saturation ABG Base Excess POC ABG pCO2 ABG Hemoglobin ABG Oxyhemoglobin ABG Sodium ABG Chloride ABG Glucose Oxyhemoglobin Carboxyhemoglobin Sodium Potassium Chloride Carbon Dioxide BUN Creatinine Glucose POC Glucose 163 H 180 H 150 H Lactic Acid Calcium Phosphorus Magnesium AST ALT Lactate Dehydrogenase Total Bilirubin Direct Bilirubin CK-MB (CK-2) C-Reactive Protein NT-Pro-B Natriuret Pep Total Protein Albumin Arterial Blood Glucose Arterial Blood Ionized Calcium Urine WBC (Auto) Urine Creatinine Digoxin 12/30/19 12/31/19 12/31/19 23:43 04:55 05:07 WBC RBC Hgb Hct MCHC RDW MCV MCH Lymph % (Auto) [place] % (Auto) [place] # Eos # Lymph # (Auto) [place] # (Auto) Eos # (Auto) Seg Neutrophils % Seg Neuts % (Manual) Baso # (Auto) Lymphocytes % (Manual) Monocytes % (Manual) Eosinophils % (Manual) Basophils % (Manual) Seg Neutrophils # Seg Neutrophils # Man Lymphocytes # (Manual) Monocytes # (Manual) Eosinophils # (Manual) Nucleated RBC % Basophils # (Manual) PT INR APTT Heparin Anti-Xa Level ABG pH POC ABG pO2 ABG pO2 ABG HCO3 ABG O2 Saturation ABG Base Excess POC ABG pCO2 ABG Hemoglobin ABG Oxyhemoglobin ABG Sodium ABG Chloride ABG Glucose Oxyhemoglobin Carboxyhemoglobin Sodium Potassium 5.6 H D Chloride Carbon Dioxide BUN 33 H Creatinine Glucose 131 H POC Glucose 142 H 134 H Lactic Acid Calcium Phosphorus Magnesium AST ALT Lactate Dehydrogenase Total Bilirubin Direct Bilirubin CK-MB (CK-2) C-Reactive Protein NT-Pro-B Natriuret Pep Total Protein Albumin Arterial Blood Glucose Arterial Blood Ionized Calcium Urine WBC (Auto) Urine Creatinine Digoxin 12/31/19 12/31/19 12/31/19 11:30 17:19 17:36 WBC RBC Hgb Hct MCHC RDW MCV MCH Lymph % (Auto) [place] % (Auto) [place] # Eos # Lymph # (Auto) [place] # (Auto) Eos # (Auto) Seg Neutrophils % Seg Neuts % (Manual) Baso # (Auto) Lymphocytes % (Manual) Monocytes % (Manual) Eosinophils % (Manual) Basophils % (Manual) Seg Neutrophils # Seg Neutrophils # Man Lymphocytes # (Manual) Monocytes # (Manual) Eosinophils # (Manual) Nucleated RBC % Basophils # (Manual) PT INR APTT Heparin Anti-Xa Level ABG pH POC ABG pO2 ABG pO2 ABG HCO3 ABG O2 Saturation ABG Base Excess POC ABG pCO2 ABG Hemoglobin ABG Oxyhemoglobin ABG Sodium ABG Chloride ABG Glucose Oxyhemoglobin Carboxyhemoglobin Sodium Potassium Chloride Carbon Dioxide BUN 35 H Creatinine Glucose 156 H POC Glucose 158 H 181 H Lactic Acid Calcium Phosphorus Magnesium AST ALT Lactate Dehydrogenase Total Bilirubin Direct Bilirubin CK-MB (CK-2) C-Reactive Protein NT-Pro-B Natriuret Pep Total Protein Albumin Arterial Blood Glucose Arterial Blood Ionized Calcium Urine WBC (Auto) Urine Creatinine Digoxin 12/31/19 12/31/19 12/31/19 18:16 19:41 21:53 WBC RBC Hgb Hct MCHC RDW MCV MCH Lymph % (Auto) [place] % (Auto) [place] # Eos # Lymph # (Auto) [place] # (Auto) Eos # (Auto) Seg Neutrophils % Seg Neuts % (Manual) Baso # (Auto) Lymphocytes % (Manual) Monocytes % (Manual) Eosinophils % (Manual) Basophils % (Manual) Seg Neutrophils # Seg Neutrophils # Man Lymphocytes # (Manual) Monocytes # (Manual) Eosinophils # (Manual) Nucleated RBC % Basophils # (Manual) PT INR APTT Heparin Anti-Xa Level 0.20 L ABG pH POC ABG pO2 ABG pO2 ABG HCO3 ABG O2 Saturation ABG Base Excess POC ABG pCO2 ABG Hemoglobin ABG Oxyhemoglobin ABG Sodium ABG Chloride ABG Glucose Oxyhemoglobin Carboxyhemoglobin Sodium Potassium Chloride Carbon Dioxide BUN 34 H Creatinine Glucose 169 H POC Glucose 141 H Lactic Acid Calcium Phosphorus Magnesium AST ALT Lactate Dehydrogenase Total Bilirubin Direct Bilirubin CK-MB (CK-2) C-Reactive Protein NT-Pro-B Natriuret Pep Total Protein Albumin Arterial Blood Glucose Arterial Blood Ionized Calcium Urine WBC (Auto) Urine Creatinine Digoxin 12/31/19 01/01/20 01/01/20 23:51 05:17 10:40 WBC RBC Hgb Hct MCHC RDW MCV MCH Lymph % (Auto) [place] % (Auto) [place] # Eos # Lymph # (Auto) [place] # (Auto) Eos # (Auto) Seg Neutrophils % Seg Neuts % (Manual) Baso # (Auto) Lymphocytes % (Manual) Monocytes % (Manual) Eosinophils % (Manual) Basophils % (Manual) Seg Neutrophils # Seg Neutrophils # Man Lymphocytes # (Manual) Monocytes # (Manual) Eosinophils # (Manual) Nucleated RBC % Basophils # (Manual) PT INR APTT Heparin Anti-Xa Level ABG pH POC ABG pO2 ABG pO2 ABG HCO3 ABG O2 Saturation ABG Base Excess POC ABG pCO2 ABG Hemoglobin ABG Oxyhemoglobin ABG Sodium ABG Chloride ABG Glucose Oxyhemoglobin Carboxyhemoglobin Sodium Potassium Chloride Carbon Dioxide BUN 31 H Creatinine 0.7 L Glucose 137 H POC Glucose 131 H 155 H Lactic Acid Calcium Phosphorus Magnesium AST 73 H ALT 97 H Lactate Dehydrogenase Total Bilirubin Direct Bilirubin CK-MB (CK-2) C-Reactive Protein NT-Pro-B Natriuret Pep 3866 H Total Protein Albumin 2.8 L Arterial Blood Glucose Arterial Blood Ionized Calcium Urine WBC (Auto) Urine Creatinine Digoxin 01/01/20 01/01/20 01/01/20 12:26 15:33 17:53 WBC 14.3 H RBC 3.35 L Hgb 9.1 L Hct 28.8 L MCHC RDW 17.0 H MCV MCH 27 L Lymph % (Auto) 7.0 L [place] % (Auto) 7.6 H [place] # Eos # Lymph # (Auto) 1.0 L [place] # (Auto) 1.1 H Eos # (Auto) Seg Neutrophils % 83.3 H Seg Neuts % (Manual) Baso # (Auto) Lymphocytes % (Manual) Monocytes % (Manual) Eosinophils % (Manual) Basophils % (Manual) Seg Neutrophils # 12.0 H Seg Neutrophils # Man Lymphocytes # (Manual) Monocytes # (Manual) Eosinophils # (Manual) Nucleated RBC % Basophils # (Manual) PT INR APTT Heparin Anti-Xa Level ABG pH POC ABG pO2 ABG pO2 ABG HCO3 ABG O2 Saturation ABG Base Excess POC ABG pCO2 ABG Hemoglobin ABG Oxyhemoglobin ABG Sodium ABG Chloride ABG Glucose Oxyhemoglobin Carboxyhemoglobin Sodium Potassium Chloride Carbon Dioxide BUN Creatinine Glucose POC Glucose 128 H 128 H Lactic Acid Calcium Phosphorus Magnesium AST ALT Lactate Dehydrogenase Total Bilirubin Direct Bilirubin CK-MB (CK-2) C-Reactive Protein NT-Pro-B Natriuret Pep Total Protein Albumin Arterial Blood Glucose Arterial Blood Ionized Calcium Urine WBC (Auto) Urine Creatinine Digoxin 01/01/20 01/02/20 01/02/20 23:04 05:39 07:00 WBC RBC Hgb Hct MCHC RDW MCV MCH Lymph % (Auto) [place] % (Auto) [place] # Eos # Lymph # (Auto) [place] # (Auto) Eos # (Auto) Seg Neutrophils % Seg Neuts % (Manual) Baso # (Auto) Lymphocytes % (Manual) Monocytes % (Manual) Eosinophils % (Manual) Basophils % (Manual) Seg Neutrophils # Seg Neutrophils # Man Lymphocytes # (Manual) Monocytes # (Manual) Eosinophils # (Manual) Nucleated RBC % Basophils # (Manual) PT INR APTT Heparin Anti-Xa Level 0.13 L ABG pH POC ABG pO2 ABG pO2 ABG HCO3 ABG O2 Saturation ABG Base Excess POC ABG pCO2 ABG Hemoglobin ABG Oxyhemoglobin ABG Sodium ABG Chloride ABG Glucose Oxyhemoglobin Carboxyhemoglobin Sodium Potassium Chloride Carbon Dioxide BUN Creatinine Glucose POC Glucose 120 H 169 H Lactic Acid Calcium Phosphorus Magnesium AST ALT Lactate Dehydrogenase Total Bilirubin Direct Bilirubin CK-MB (CK-2) C-Reactive Protein NT-Pro-B Natriuret Pep Total Protein Albumin Arterial Blood Glucose Arterial Blood Ionized Calcium Urine WBC (Auto) Urine Creatinine Digoxin 01/02/20 01/02/20 01/02/20 12:15 14:06 17:58 WBC RBC Hgb Hct MCHC RDW MCV MCH Lymph % (Auto) [place] % (Auto) [place] # Eos # Lymph # (Auto) [place] # (Auto) Eos # (Auto) Seg Neutrophils % Seg Neuts % (Manual) Baso # (Auto) Lymphocytes % (Manual) Monocytes % (Manual) Eosinophils % (Manual) Basophils % (Manual) Seg Neutrophils # Seg Neutrophils # Man Lymphocytes # (Manual) Monocytes # (Manual) Eosinophils # (Manual) Nucleated RBC % Basophils # (Manual) PT INR APTT Heparin Anti-Xa Level < 0.10 L ABG pH POC ABG pO2 ABG pO2 ABG HCO3 ABG O2 Saturation ABG Base Excess POC ABG pCO2 ABG Hemoglobin ABG Oxyhemoglobin ABG Sodium ABG Chloride ABG Glucose Oxyhemoglobin Carboxyhemoglobin Sodium Potassium Chloride Carbon Dioxide BUN Creatinine Glucose POC Glucose 190 H 198 H Lactic Acid Calcium Phosphorus Magnesium AST ALT Lactate Dehydrogenase Total Bilirubin Direct Bilirubin CK-MB (CK-2) C-Reactive Protein NT-Pro-B Natriuret Pep Total Protein Albumin Arterial Blood Glucose Arterial Blood Ionized Calcium Urine WBC (Auto) Urine Creatinine Digoxin 01/02/20 01/02/20 01/03/20 21:43 23:33 05:42 WBC RBC Hgb Hct MCHC RDW MCV MCH Lymph % (Auto) [place] % (Auto) [place] # Eos # Lymph # (Auto) [place] # (Auto) Eos # (Auto) Seg Neutrophils % Seg Neuts % (Manual) Baso # (Auto) Lymphocytes % (Manual) Monocytes % (Manual) Eosinophils % (Manual) Basophils % (Manual) Seg Neutrophils # Seg Neutrophils # Man Lymphocytes # (Manual) Monocytes # (Manual) Eosinophils # (Manual) Nucleated RBC % Basophils # (Manual) PT INR APTT Heparin Anti-Xa Level 0.10 L ABG pH POC ABG pO2 ABG pO2 ABG HCO3 ABG O2 Saturation ABG Base Excess POC ABG pCO2 ABG Hemoglobin ABG Oxyhemoglobin ABG Sodium ABG Chloride ABG Glucose Oxyhemoglobin Carboxyhemoglobin Sodium Potassium Chloride Carbon Dioxide BUN Creatinine Glucose POC Glucose 180 H 163 H Lactic Acid Calcium Phosphorus Magnesium AST ALT Lactate Dehydrogenase Total Bilirubin Direct Bilirubin CK-MB (CK-2) C-Reactive Protein NT-Pro-B Natriuret Pep Total Protein Albumin Arterial Blood Glucose Arterial Blood Ionized Calcium Urine WBC (Auto) Urine Creatinine Digoxin 01/03/20 01/03/20 01/03/20 06:50 07:25 07:45 WBC 12.1 H RBC 3.35 L Hgb 9.0 L Hct 28.9 L MCHC 31 L RDW 16.6 H MCV MCH 27 L Lymph % (Auto) 13.0 L [place] % (Auto) 8.6 H [place] # Eos # Lymph # (Auto) [place] # (Auto) 1.0 H Eos # (Auto) Seg Neutrophils % 75.9 H Seg Neuts % (Manual) Baso # (Auto) Lymphocytes % (Manual) Monocytes % (Manual) Eosinophils % (Manual) Basophils % (Manual) Seg Neutrophils # 9.2 H Seg Neutrophils # Man Lymphocytes # (Manual) Monocytes # (Manual) Eosinophils # (Manual) Nucleated RBC % Basophils # (Manual) PT INR APTT Heparin Anti-Xa Level 0.29 L ABG pH POC ABG pO2 ABG pO2 ABG HCO3 ABG O2 Saturation ABG Base Excess POC ABG pCO2 ABG Hemoglobin ABG Oxyhemoglobin ABG Sodium ABG Chloride ABG Glucose Oxyhemoglobin Carboxyhemoglobin Sodium Potassium 3.3 L D Chloride Carbon Dioxide 35 H D BUN 23 H Creatinine 0.6 L Glucose 149 H POC Glucose Lactic Acid Calcium Phosphorus Magnesium AST ALT 88 H Lactate Dehydrogenase Total Bilirubin Direct Bilirubin CK-MB (CK-2) C-Reactive Protein NT-Pro-B Natriuret Pep Total Protein 6.2 L Albumin 2.9 L Arterial Blood Glucose Arterial Blood Ionized Calcium Urine WBC (Auto) Urine Creatinine Digoxin 01/03/20 01/03/20 01/03/20 12:05 17:42 18:30 WBC RBC Hgb Hct MCHC RDW MCV MCH Lymph % (Auto) [place] % (Auto) [place] # Eos # Lymph # (Auto) [place] # (Auto) Eos # (Auto) Seg Neutrophils % Seg Neuts % (Manual) Baso # (Auto) Lymphocytes % (Manual) Monocytes % (Manual) Eosinophils % (Manual) Basophils % (Manual) Seg Neutrophils # Seg Neutrophils # Man Lymphocytes # (Manual) Monocytes # (Manual) Eosinophils # (Manual) Nucleated RBC % Basophils # (Manual) PT INR APTT Heparin Anti-Xa Level ABG pH POC ABG pO2 ABG pO2 70.7 L ABG HCO3 36.1 H ABG O2 Saturation 94.4 L ABG Base Excess 10.0 H POC ABG pCO2 ABG Hemoglobin 9.7 L ABG Oxyhemoglobin ABG Sodium ABG Chloride ABG Glucose Oxyhemoglobin 91.8 L Carboxyhemoglobin Sodium Potassium Chloride Carbon Dioxide BUN Creatinine Glucose POC Glucose 128 H 132 H Lactic Acid Calcium Phosphorus Magnesium AST ALT Lactate Dehydrogenase Total Bilirubin Direct Bilirubin CK-MB (CK-2) C-Reactive Protein NT-Pro-B Natriuret Pep Total Protein Albumin Arterial Blood Glucose Arterial Blood Ionized Calcium Urine WBC (Auto) Urine Creatinine Digoxin 01/04/20 01/04/20 01/04/20 00:10 04:26 05:23 WBC RBC Hgb Hct MCHC RDW MCV MCH Lymph % (Auto) [place] % (Auto) [place] # Eos # Lymph # (Auto) [place] # (Auto) Eos # (Auto) Seg Neutrophils % Seg Neuts % (Manual) Baso # (Auto) Lymphocytes % (Manual) Monocytes % (Manual) Eosinophils % (Manual) Basophils % (Manual) Seg Neutrophils # Seg Neutrophils # Man Lymphocytes # (Manual) Monocytes # (Manual) Eosinophils # (Manual) Nucleated RBC % Basophils # (Manual) PT INR APTT Heparin Anti-Xa Level 0.16 L ABG pH POC ABG pO2 ABG pO2 ABG HCO3 ABG O2 Saturation ABG Base Excess POC ABG pCO2 ABG Hemoglobin ABG Oxyhemoglobin ABG Sodium ABG Chloride ABG Glucose Oxyhemoglobin Carboxyhemoglobin Sodium Potassium Chloride Carbon Dioxide BUN Creatinine Glucose POC Glucose 121 H 119 H Lactic Acid Calcium Phosphorus Magnesium AST ALT Lactate Dehydrogenase Total Bilirubin Direct Bilirubin CK-MB (CK-2) C-Reactive Protein NT-Pro-B Natriuret Pep Total Protein Albumin Arterial Blood Glucose Arterial Blood Ionized Calcium Urine WBC (Auto) Urine Creatinine Digoxin 01/04/20 01/04/20 01/04/20 09:50 09:50 12:18 WBC 15.4 H RBC 3.30 L Hgb 8.7 L Hct 28.2 L MCHC 31 L RDW 17.0 H MCV MCH 26 L Lymph % (Auto) [place] % (Auto) 7.6 H [place] # Eos # Lymph # (Auto) [place] # (Auto) 1.2 H Eos # (Auto) Seg Neutrophils % 75.4 H Seg Neuts % (Manual) Baso # (Auto) Lymphocytes % (Manual) Monocytes % (Manual) Eosinophils % (Manual) Basophils % (Manual) Seg Neutrophils # 11.6 H Seg Neutrophils # Man Lymphocytes # (Manual) Monocytes # (Manual) Eosinophils # (Manual) Nucleated RBC % Basophils # (Manual) PT INR APTT Heparin Anti-Xa Level ABG pH POC ABG pO2 ABG pO2 ABG HCO3 ABG O2 Saturation ABG Base Excess POC ABG pCO2 ABG Hemoglobin ABG Oxyhemoglobin ABG Sodium ABG Chloride ABG Glucose Oxyhemoglobin Carboxyhemoglobin Sodium 148 H Potassium 3.5 L Chloride Carbon Dioxide 32 H BUN Creatinine 0.6 L Glucose 114 H POC Glucose 111 H Lactic Acid Calcium Phosphorus Magnesium AST ALT 59 H Lactate Dehydrogenase Total Bilirubin Direct Bilirubin CK-MB (CK-2) C-Reactive Protein NT-Pro-B Natriuret Pep Total Protein Albumin 2.6 L Arterial Blood Glucose Arterial Blood Ionized Calcium Urine WBC (Auto) Urine Creatinine Digoxin 01/05/20 01/05/20 01/05/20 04:05 04:05 05:19 WBC 11.7 H RBC 3.50 L Hgb 9.3 L Hct 29.9 L MCHC 31 L RDW 16.6 H MCV MCH 27 L Lymph % (Auto) 13.1 L [place] % (Auto) 9.7 H [place] # Eos # Lymph # (Auto) [place] # (Auto) 1.1 H Eos # (Auto) Seg Neutrophils % 74.0 H Seg Neuts % (Manual) Baso # (Auto) Lymphocytes % (Manual) Monocytes % (Manual) Eosinophils % (Manual) Basophils % (Manual) Seg Neutrophils # 8.6 H Seg Neutrophils # Man Lymphocytes # (Manual) Monocytes # (Manual) Eosinophils # (Manual) Nucleated RBC % Basophils # (Manual) PT INR APTT Heparin Anti-Xa Level ABG pH POC ABG pO2 ABG pO2 ABG HCO3 ABG O2 Saturation ABG Base Excess POC ABG pCO2 ABG Hemoglobin ABG Oxyhemoglobin ABG Sodium ABG Chloride ABG Glucose Oxyhemoglobin Carboxyhemoglobin Sodium 151 H Potassium Chloride Carbon Dioxide 34 H BUN Creatinine 0.7 L Glucose POC Glucose 112 H Lactic Acid Calcium Phosphorus Magnesium AST ALT 59 H Lactate Dehydrogenase Total Bilirubin Direct Bilirubin CK-MB (CK-2) C-Reactive Protein NT-Pro-B Natriuret Pep Total Protein 5.8 L Albumin 2.6 L Arterial Blood Glucose Arterial Blood Ionized Calcium Urine WBC (Auto) Urine Creatinine Digoxin 01/05/20 01/06/20 01/06/20 16:04 00:23 04:44 WBC RBC 3.36 L Hgb 8.9 L Hct 28.7 L MCHC 31 L RDW 16.9 H MCV MCH 26 L Lymph % (Auto) [place] % (Auto) 9.4 H [place] # Eos # Lymph # (Auto) [place] # (Auto) Eos # (Auto) Seg Neutrophils % Seg Neuts % (Manual) Baso # (Auto) Lymphocytes % (Manual) Monocytes % (Manual) Eosinophils % (Manual) Basophils % (Manual) Seg Neutrophils # Seg Neutrophils # Man Lymphocytes # (Manual) Monocytes # (Manual) Eosinophils # (Manual) Nucleated RBC % Basophils # (Manual) PT INR APTT Heparin Anti-Xa Level ABG pH POC ABG pO2 ABG pO2 ABG HCO3 ABG O2 Saturation ABG Base Excess POC ABG pCO2 ABG Hemoglobin ABG Oxyhemoglobin ABG Sodium ABG Chloride ABG Glucose Oxyhemoglobin Carboxyhemoglobin Sodium 151 H Potassium 3.2 L Chloride Carbon Dioxide 34 H BUN Creatinine 0.6 L Glucose POC Glucose 107 H Lactic Acid Calcium Phosphorus Magnesium AST ALT Lactate Dehydrogenase Total Bilirubin Direct Bilirubin CK-MB (CK-2) C-Reactive Protein NT-Pro-B Natriuret Pep Total Protein Albumin Arterial Blood Glucose Arterial Blood Ionized Calcium Urine WBC (Auto) Urine Creatinine Digoxin 01/06/20 01/06/20 01/06/20 04:44 05:33 12:04 WBC RBC Hgb Hct MCHC RDW MCV MCH Lymph % (Auto) [place] % (Auto) [place] # Eos # Lymph # (Auto) [place] # (Auto) Eos # (Auto) Seg Neutrophils % Seg Neuts % (Manual) Baso # (Auto) Lymphocytes % (Manual) Monocytes % (Manual) Eosinophils % (Manual) Basophils % (Manual) Seg Neutrophils # Seg Neutrophils # Man Lymphocytes # (Manual) Monocytes # (Manual) Eosinophils # (Manual) Nucleated RBC % Basophils # (Manual) PT INR APTT Heparin Anti-Xa Level ABG pH POC ABG pO2 ABG pO2 ABG HCO3 ABG O2 Saturation ABG Base Excess POC ABG pCO2 ABG Hemoglobin ABG Oxyhemoglobin ABG Sodium ABG Chloride ABG Glucose Oxyhemoglobin Carboxyhemoglobin Sodium 151 H Potassium 3.4 L Chloride Carbon Dioxide 33 H BUN Creatinine 0.6 L Glucose 118 H POC Glucose 118 H 123 H Lactic Acid Calcium Phosphorus Magnesium AST ALT Lactate Dehydrogenase Total Bilirubin Direct Bilirubin CK-MB (CK-2) C-Reactive Protein NT-Pro-B Natriuret Pep Total Protein 6.2 L Albumin 2.6 L Arterial Blood Glucose Arterial Blood Ionized Calcium Urine WBC (Auto) Urine Creatinine Digoxin 01/06/20 01/07/20 01/07/20 17:54 00:06 04:10 WBC RBC 3.42 L Hgb 8.9 L Hct 29.0 L MCHC 31 L RDW 17.1 H MCV MCH 26 L Lymph % (Auto) [place] % (Auto) 8.4 H [place] # Eos # Lymph # (Auto) [place] # (Auto) Eos # (Auto) Seg Neutrophils % Seg Neuts % (Manual) Baso # (Auto) Lymphocytes % (Manual) Monocytes % (Manual) Eosinophils % (Manual) Basophils % (Manual) Seg Neutrophils # Seg Neutrophils # Man Lymphocytes # (Manual) Monocytes # (Manual) Eosinophils # (Manual) Nucleated RBC % Basophils # (Manual) PT INR APTT Heparin Anti-Xa Level ABG pH POC ABG pO2 ABG pO2 ABG HCO3 ABG O2 Saturation ABG Base Excess POC ABG pCO2 ABG Hemoglobin ABG Oxyhemoglobin ABG Sodium ABG Chloride ABG Glucose Oxyhemoglobin Carboxyhemoglobin Sodium Potassium Chloride Carbon Dioxide BUN Creatinine Glucose POC Glucose 112 H 126 H Lactic Acid Calcium Phosphorus Magnesium AST ALT Lactate Dehydrogenase Total Bilirubin Direct Bilirubin CK-MB (CK-2) C-Reactive Protein NT-Pro-B Natriuret Pep Total Protein Albumin Arterial Blood Glucose Arterial Blood Ionized Calcium Urine WBC (Auto) Urine Creatinine Digoxin 01/07/20 01/07/20 01/07/20 04:10 05:59 12:27 WBC RBC Hgb Hct MCHC RDW MCV MCH Lymph % (Auto) [place] % (Auto) [place] # Eos # Lymph # (Auto) [place] # (Auto) Eos # (Auto) Seg Neutrophils % Seg Neuts % (Manual) Baso # (Auto) Lymphocytes % (Manual) Monocytes % (Manual) Eosinophils % (Manual) Basophils % (Manual) Seg Neutrophils # Seg Neutrophils # Man Lymphocytes # (Manual) Monocytes # (Manual) Eosinophils # (Manual) Nucleated RBC % Basophils # (Manual) PT INR APTT Heparin Anti-Xa Level ABG pH POC ABG pO2 ABG pO2 ABG HCO3 ABG O2 Saturation ABG Base Excess POC ABG pCO2 ABG Hemoglobin ABG Oxyhemoglobin ABG Sodium ABG Chloride ABG Glucose Oxyhemoglobin Carboxyhemoglobin Sodium 153 H Potassium 3.5 L Chloride Carbon Dioxide 34 H BUN Creatinine 0.6 L Glucose 121 H POC Glucose 121 H 126 H Lactic Acid Calcium Phosphorus Magnesium AST ALT Lactate Dehydrogenase Total Bilirubin Direct Bilirubin CK-MB (CK-2) C-Reactive Protein NT-Pro-B Natriuret Pep Total Protein 5.9 L Albumin 2.4 L Arterial Blood Glucose Arterial Blood Ionized Calcium Urine WBC (Auto) Urine Creatinine Digoxin 01/07/20 01/08/20 01/08/20 18:12 00:03 05:41 WBC RBC Hgb Hct MCHC RDW MCV MCH Lymph % (Auto) [place] % (Auto) [place] # Eos # Lymph # (Auto) [place] # (Auto) Eos # (Auto) Seg Neutrophils % Seg Neuts % (Manual) Baso # (Auto) Lymphocytes % (Manual) Monocytes % (Manual) Eosinophils % (Manual) Basophils % (Manual) Seg Neutrophils # Seg Neutrophils # Man Lymphocytes # (Manual) Monocytes # (Manual) Eosinophils # (Manual) Nucleated RBC % Basophils # (Manual) PT INR APTT Heparin Anti-Xa Level ABG pH POC ABG pO2 ABG pO2 ABG HCO3 ABG O2 Saturation ABG Base Excess POC ABG pCO2 ABG Hemoglobin ABG Oxyhemoglobin ABG Sodium ABG Chloride ABG Glucose Oxyhemoglobin Carboxyhemoglobin Sodium Potassium Chloride Carbon Dioxide BUN Creatinine Glucose POC Glucose 124 H 130 H 138 H Lactic Acid Calcium Phosphorus Magnesium AST ALT Lactate Dehydrogenase Total Bilirubin Direct Bilirubin CK-MB (CK-2) C-Reactive Protein NT-Pro-B Natriuret Pep Total Protein Albumin Arterial Blood Glucose Arterial Blood Ionized Calcium Urine WBC (Auto) Urine Creatinine Digoxin 01/08/20 01/08/20 01/08/20 09:28 11:42 18:21 WBC RBC Hgb Hct MCHC RDW MCV MCH Lymph % (Auto) [place] % (Auto) [place] # Eos # Lymph # (Auto) [place] # (Auto) Eos # (Auto) Seg Neutrophils % Seg Neuts % (Manual) Baso # (Auto) Lymphocytes % (Manual) Monocytes % (Manual) Eosinophils % (Manual) Basophils % (Manual) Seg Neutrophils # Seg Neutrophils # Man Lymphocytes # (Manual) Monocytes # (Manual) Eosinophils # (Manual) Nucleated RBC % Basophils # (Manual) PT INR APTT Heparin Anti-Xa Level ABG pH POC ABG pO2 ABG pO2 ABG HCO3 ABG O2 Saturation ABG Base Excess POC ABG pCO2 ABG Hemoglobin ABG Oxyhemoglobin ABG Sodium ABG Chloride ABG Glucose Oxyhemoglobin Carboxyhemoglobin Sodium Potassium Chloride Carbon Dioxide BUN Creatinine Glucose POC Glucose 181 H 150 H 129 H Lactic Acid Calcium Phosphorus Magnesium AST ALT Lactate Dehydrogenase Total Bilirubin Direct Bilirubin CK-MB (CK-2) C-Reactive Protein NT-Pro-B Natriuret Pep Total Protein Albumin Arterial Blood Glucose Arterial Blood Ionized Calcium Urine WBC (Auto) Urine Creatinine Digoxin 01/08/20 01/08/20 01/09/20 19:25 23:55 04:11 WBC RBC 3.43 L Hgb 8.9 L Hct 28.7 L MCHC 31 L RDW 17.6 H MCV MCH 26 L Lymph % (Auto) [place] % (Auto) 8.6 H [place] # Eos # Lymph # (Auto) [place] # (Auto) Eos # (Auto) Seg Neutrophils % Seg Neuts % (Manual) Baso # (Auto) Lymphocytes % (Manual) Monocytes % (Manual) Eosinophils % (Manual) Basophils % (Manual) Seg Neutrophils # Seg Neutrophils # Man Lymphocytes # (Manual) Monocytes # (Manual) Eosinophils # (Manual) Nucleated RBC % Basophils # (Manual) PT INR APTT Heparin Anti-Xa Level ABG pH POC ABG pO2 ABG pO2 ABG HCO3 ABG O2 Saturation ABG Base Excess POC ABG pCO2 ABG Hemoglobin ABG Oxyhemoglobin ABG Sodium ABG Chloride ABG Glucose Oxyhemoglobin Carboxyhemoglobin Sodium Potassium Chloride Carbon Dioxide BUN Creatinine 0.7 L Glucose 117 H POC Glucose 132 H Lactic Acid Calcium Phosphorus Magnesium AST ALT Lactate Dehydrogenase Total Bilirubin Direct Bilirubin CK-MB (CK-2) C-Reactive Protein NT-Pro-B Natriuret Pep Total Protein Albumin Arterial Blood Glucose Arterial Blood Ionized Calcium Urine WBC (Auto) Urine Creatinine Digoxin 01/09/20 01/09/20 01/09/20 04:11 05:38 22:58 WBC RBC Hgb Hct MCHC RDW MCV MCH Lymph % (Auto) [place] % (Auto) [place] # Eos # Lymph # (Auto) [place] # (Auto) Eos # (Auto) Seg Neutrophils % Seg Neuts % (Manual) Baso # (Auto) Lymphocytes % (Manual) Monocytes % (Manual) Eosinophils % (Manual) Basophils % (Manual) Seg Neutrophils # Seg Neutrophils # Man Lymphocytes # (Manual) Monocytes # (Manual) Eosinophils # (Manual) Nucleated RBC % Basophils # (Manual) PT INR APTT Heparin Anti-Xa Level ABG pH POC ABG pO2 ABG pO2 ABG HCO3 ABG O2 Saturation ABG Base Excess POC ABG pCO2 ABG Hemoglobin ABG Oxyhemoglobin ABG Sodium ABG Chloride ABG Glucose Oxyhemoglobin Carboxyhemoglobin Sodium 147 H Potassium 3.3 L D Chloride Carbon Dioxide 32 H BUN Creatinine 0.6 L Glucose 106 H POC Glucose 107 H 113 H Lactic Acid Calcium Phosphorus Magnesium AST ALT Lactate Dehydrogenase Total Bilirubin Direct Bilirubin CK-MB (CK-2) C-Reactive Protein NT-Pro-B Natriuret Pep Total Protein Albumin Arterial Blood Glucose Arterial Blood Ionized Calcium Urine WBC (Auto) Urine Creatinine Digoxin 01/10/20 01/10/20 01/10/20 04:05 11:36 17:54 WBC RBC Hgb Hct MCHC RDW MCV MCH Lymph % (Auto) [place] % (Auto) [place] # Eos # Lymph # (Auto) [place] # (Auto) Eos # (Auto) Seg Neutrophils % Seg Neuts % (Manual) Baso # (Auto) Lymphocytes % (Manual) Monocytes % (Manual) Eosinophils % (Manual) Basophils % (Manual) Seg Neutrophils # Seg Neutrophils # Man Lymphocytes # (Manual) Monocytes # (Manual) Eosinophils # (Manual) Nucleated RBC % Basophils # (Manual) PT INR APTT Heparin Anti-Xa Level ABG pH POC ABG pO2 ABG pO2 ABG HCO3 ABG O2 Saturation ABG Base Excess POC ABG pCO2 ABG Hemoglobin ABG Oxyhemoglobin ABG Sodium ABG Chloride ABG Glucose Oxyhemoglobin Carboxyhemoglobin Sodium Potassium Chloride Carbon Dioxide BUN Creatinine 0.7 L Glucose 110 H POC Glucose 129 H 117 H Lactic Acid Calcium Phosphorus Magnesium AST ALT Lactate Dehydrogenase Total Bilirubin Direct Bilirubin CK-MB (CK-2) C-Reactive Protein NT-Pro-B Natriuret Pep Total Protein Albumin Arterial Blood Glucose Arterial Blood Ionized Calcium Urine WBC (Auto) Urine Creatinine Digoxin 01/10/20 01/11/20 01/11/20 23:52 03:19 12:09 WBC RBC Hgb Hct MCHC RDW MCV MCH Lymph % (Auto) [place] % (Auto) [place] # Eos # Lymph # (Auto) [place] # (Auto) Eos # (Auto) Seg Neutrophils % Seg Neuts % (Manual) Baso # (Auto) Lymphocytes % (Manual) Monocytes % (Manual) Eosinophils % (Manual) Basophils % (Manual) Seg Neutrophils # Seg Neutrophils # Man Lymphocytes # (Manual) Monocytes # (Manual) Eosinophils # (Manual) Nucleated RBC % Basophils # (Manual) PT INR APTT Heparin Anti-Xa Level ABG pH POC ABG pO2 ABG pO2 ABG HCO3 ABG O2 Saturation ABG Base Excess POC ABG pCO2 ABG Hemoglobin ABG Oxyhemoglobin ABG Sodium ABG Chloride ABG Glucose Oxyhemoglobin Carboxyhemoglobin Sodium Potassium Chloride Carbon Dioxide BUN Creatinine Glucose POC Glucose 117 H 136 H 115 H Lactic Acid Calcium Phosphorus Magnesium AST ALT Lactate Dehydrogenase Total Bilirubin Direct Bilirubin CK-MB (CK-2) C-Reactive Protein NT-Pro-B Natriuret Pep Total Protein Albumin Arterial Blood Glucose Arterial Blood Ionized Calcium Urine WBC (Auto) Urine Creatinine Digoxin 01/11/20 01/11/20 01/12/20 18:27 23:28 00:23 WBC RBC Hgb 9.8 L Hct 31.6 L MCHC 31 L RDW 17.8 H MCV 83 L MCH 26 L Lymph % (Auto) [place] % (Auto) 8.0 H [place] # Eos # Lymph # (Auto) [place] # (Auto) Eos # (Auto) Seg Neutrophils % Seg Neuts % (Manual) Baso # (Auto) Lymphocytes % (Manual) Monocytes % (Manual) Eosinophils % (Manual) Basophils % (Manual) Seg Neutrophils # Seg Neutrophils # Man Lymphocytes # (Manual) Monocytes # (Manual) Eosinophils # (Manual) Nucleated RBC % Basophils # (Manual) PT INR APTT Heparin Anti-Xa Level ABG pH POC ABG pO2 ABG pO2 ABG HCO3 ABG O2 Saturation ABG Base Excess POC ABG pCO2 ABG Hemoglobin ABG Oxyhemoglobin ABG Sodium ABG Chloride ABG Glucose Oxyhemoglobin Carboxyhemoglobin Sodium Potassium Chloride Carbon Dioxide BUN Creatinine Glucose POC Glucose 118 H 122 H Lactic Acid Calcium Phosphorus Magnesium AST ALT Lactate Dehydrogenase Total Bilirubin Direct Bilirubin CK-MB (CK-2) C-Reactive Protein NT-Pro-B Natriuret Pep Total Protein Albumin Arterial Blood Glucose Arterial Blood Ionized Calcium Urine WBC (Auto) Urine Creatinine Digoxin 01/12/20 01/12/20 01/12/20 00:23 04:18 04:18 WBC RBC Hgb 9.6 L Hct 30.9 L MCHC 31 L RDW 17.3 H MCV 81 L MCH 25 L Lymph % (Auto) [place] % (Auto) [place] # Eos # Lymph # (Auto) [place] # (Auto) Eos # (Auto) Seg Neutrophils % Seg Neuts % (Manual) Baso # (Auto) Lymphocytes % (Manual) Monocytes % (Manual) Eosinophils % (Manual) Basophils % (Manual) Seg Neutrophils # Seg Neutrophils # Man Lymphocytes # (Manual) Monocytes # (Manual) Eosinophils # (Manual) Nucleated RBC % Basophils # (Manual) PT INR APTT Heparin Anti-Xa Level ABG pH POC ABG pO2 ABG pO2 ABG HCO3 ABG O2 Saturation ABG Base Excess POC ABG pCO2 ABG Hemoglobin ABG Oxyhemoglobin ABG Sodium ABG Chloride ABG Glucose Oxyhemoglobin Carboxyhemoglobin Sodium Potassium Chloride Carbon Dioxide BUN Creatinine 0.7 L 0.7 L Glucose 111 H 108 H POC Glucose Lactic Acid Calcium Phosphorus Magnesium AST ALT Lactate Dehydrogenase Total Bilirubin Direct Bilirubin CK-MB (CK-2) C-Reactive Protein NT-Pro-B Natriuret Pep Total Protein Albumin 2.6 L Arterial Blood Glucose Arterial Blood Ionized Calcium Urine WBC (Auto) Urine Creatinine Digoxin 01/12/20 01/12/20 01/12/20 06:03 12:27 13:58 WBC RBC Hgb Hct MCHC RDW MCV MCH Lymph % (Auto) [place] % (Auto) [place] # Eos # Lymph # (Auto) [place] # (Auto) Eos # (Auto) Seg Neutrophils % Seg Neuts % (Manual) Baso # (Auto) Lymphocytes % (Manual) Monocytes % (Manual) Eosinophils % (Manual) Basophils % (Manual) Seg Neutrophils # Seg Neutrophils # Man Lymphocytes # (Manual) Monocytes # (Manual) Eosinophils # (Manual) Nucleated RBC % Basophils # (Manual) PT INR APTT Heparin Anti-Xa Level ABG pH 7.453 H POC ABG pO2 76.6 L ABG pO2 ABG HCO3 ABG O2 Saturation ABG Base Excess POC ABG pCO2 ABG Hemoglobin 10.3 L ABG Oxyhemoglobin ABG Sodium ABG Chloride ABG Glucose 99 H Oxyhemoglobin Carboxyhemoglobin Sodium Potassium Chloride Carbon Dioxide BUN Creatinine Glucose POC Glucose 128 H 121 H Lactic Acid Calcium Phosphorus Magnesium AST ALT Lactate Dehydrogenase Total Bilirubin Direct Bilirubin CK-MB (CK-2) C-Reactive Protein NT-Pro-B Natriuret Pep Total Protein Albumin Arterial Blood Glucose 99 H Arterial Blood Ionized Calcium Urine WBC (Auto) Urine Creatinine Digoxin 10/01/13/20 01/13/20 18:24 12:01 17:46 WBC RBC Hgb Hct MCHC RDW MCV MCH Lymph % (Auto) [place] % (Auto) [place] # Eos # Lymph # (Auto) [place] # (Auto) Eos # (Auto) Seg Neutrophils % Seg Neuts % (Manual) Baso # (Auto) Lymphocytes % (Manual) Monocytes % (Manual) Eosinophils % (Manual) Basophils % (Manual) Seg Neutrophils # Seg Neutrophils # Man Lymphocytes # (Manual) Monocytes # (Manual) Eosinophils # (Manual) Nucleated RBC % Basophils # (Manual) PT INR APTT Heparin Anti-Xa Level ABG pH POC ABG pO2 ABG pO2 ABG HCO3 ABG O2 Saturation ABG Base Excess POC ABG pCO2 ABG Hemoglobin ABG Oxyhemoglobin ABG Sodium ABG Chloride ABG Glucose Oxyhemoglobin Carboxyhemoglobin Sodium Potassium Chloride Carbon Dioxide BUN Creatinine Glucose POC Glucose 119 H 107 H 124 H Lactic Acid Calcium Phosphorus Magnesium AST ALT Lactate Dehydrogenase Total Bilirubin Direct Bilirubin CK-MB (CK-2) C-Reactive Protein NT-Pro-B Natriuret Pep Total Protein Albumin Arterial Blood Glucose Arterial Blood Ionized Calcium Urine WBC (Auto) Urine Creatinine Digoxin 01/13/20 01/14/20 01/14/20 20:40 00:10 05:33 WBC RBC Hgb Hct MCHC RDW MCV MCH Lymph % (Auto) [place] % (Auto) [place] # Eos # Lymph # (Auto) [place] # (Auto) Eos # (Auto) Seg Neutrophils % Seg Neuts % (Manual) Baso # (Auto) Lymphocytes % (Manual) Monocytes % (Manual) Eosinophils % (Manual) Basophils % (Manual) Seg Neutrophils # Seg Neutrophils # Man Lymphocytes # (Manual) Monocytes # (Manual) Eosinophils # (Manual) Nucleated RBC % Basophils # (Manual) PT INR APTT Heparin Anti-Xa Level ABG pH POC ABG pO2 ABG pO2 65.3 L ABG HCO3 31.8 H ABG O2 Saturation 93.5 L ABG Base Excess 6.7 H POC ABG pCO2 ABG Hemoglobin 13.3 L ABG Oxyhemoglobin ABG Sodium ABG Chloride ABG Glucose Oxyhemoglobin 90.9 L Carboxyhemoglobin Sodium Potassium Chloride Carbon Dioxide BUN Creatinine Glucose POC Glucose 111 H 111 H Lactic Acid Calcium Phosphorus Magnesium AST ALT Lactate Dehydrogenase Total Bilirubin Direct Bilirubin CK-MB (CK-2) C-Reactive Protein NT-Pro-B Natriuret Pep Total Protein Albumin Arterial Blood Glucose Arterial Blood Ionized Calcium Urine WBC (Auto) Urine Creatinine Digoxin 01/14/20 01/14/20 01/14/20 12:10 16:14 16:14 WBC RBC Hgb 10.6 L Hct 34.2 L MCHC 31 L RDW 18.3 H MCV 83 L MCH 26 L Lymph % (Auto) [place] % (Auto) 7.4 H [place] # Eos # Lymph # (Auto) [place] # (Auto) Eos # (Auto) Seg Neutrophils % 71.9 H Seg Neuts % (Manual) Baso # (Auto) Lymphocytes % (Manual) Monocytes % (Manual) Eosinophils % (Manual) Basophils % (Manual) Seg Neutrophils # Seg Neutrophils # Man Lymphocytes # (Manual) Monocytes # (Manual) Eosinophils # (Manual) Nucleated RBC % Basophils # (Manual) PT INR APTT Heparin Anti-Xa Level ABG pH POC ABG pO2 ABG pO2 ABG HCO3 ABG O2 Saturation ABG Base Excess POC ABG pCO2 ABG Hemoglobin ABG Oxyhemoglobin ABG Sodium ABG Chloride ABG Glucose Oxyhemoglobin Carboxyhemoglobin Sodium Potassium Chloride Carbon Dioxide 31 H BUN Creatinine 0.6 L Glucose 131 H POC Glucose 139 H Lactic Acid Calcium Phosphorus Magnesium AST ALT Lactate Dehydrogenase Total Bilirubin Direct Bilirubin CK-MB (CK-2) C-Reactive Protein NT-Pro-B Natriuret Pep Total Protein Albumin Arterial Blood Glucose Arterial Blood Ionized Calcium Urine WBC (Auto) Urine Creatinine Digoxin 01/14/20 01/15/20 01/15/20 18:05 00:52 05:35 WBC RBC Hgb Hct MCHC RDW MCV MCH Lymph % (Auto) [place] % (Auto) [place] # Eos # Lymph # (Auto) [place] # (Auto) Eos # (Auto) Seg Neutrophils % Seg Neuts % (Manual) Baso # (Auto) Lymphocytes % (Manual) Monocytes % (Manual) Eosinophils % (Manual) Basophils % (Manual) Seg Neutrophils # Seg Neutrophils # Man Lymphocytes # (Manual) Monocytes # (Manual) Eosinophils # (Manual) Nucleated RBC % Basophils # (Manual) PT INR APTT Heparin Anti-Xa Level ABG pH POC ABG pO2 ABG pO2 ABG HCO3 ABG O2 Saturation ABG Base Excess POC ABG pCO2 ABG Hemoglobin ABG Oxyhemoglobin ABG Sodium ABG Chloride ABG Glucose Oxyhemoglobin Carboxyhemoglobin Sodium Potassium Chloride Carbon Dioxide BUN Creatinine Glucose POC Glucose 147 H 140 H 159 H Lactic Acid Calcium Phosphorus Magnesium AST ALT Lactate Dehydrogenase Total Bilirubin Direct Bilirubin CK-MB (CK-2) C-Reactive Protein NT-Pro-B Natriuret Pep Total Protein Albumin Arterial Blood Glucose Arterial Blood Ionized Calcium Urine WBC (Auto) Urine Creatinine Digoxin 01/15/20 01/15/20 01/16/20 12:52 17:43 00:32 WBC RBC Hgb Hct MCHC RDW MCV MCH Lymph % (Auto) [place] % (Auto) [place] # Eos # Lymph # (Auto) [place] # (Auto) Eos # (Auto) Seg Neutrophils % Seg Neuts % (Manual) Baso # (Auto) Lymphocytes % (Manual) Monocytes % (Manual) Eosinophils % (Manual) Basophils % (Manual) Seg Neutrophils # Seg Neutrophils # Man Lymphocytes # (Manual) Monocytes # (Manual) Eosinophils # (Manual) Nucleated RBC % Basophils # (Manual) PT INR APTT Heparin Anti-Xa Level ABG pH POC ABG pO2 ABG pO2 ABG HCO3 ABG O2 Saturation ABG Base Excess POC ABG pCO2 ABG Hemoglobin ABG Oxyhemoglobin ABG Sodium ABG Chloride ABG Glucose Oxyhemoglobin Carboxyhemoglobin Sodium Potassium Chloride Carbon Dioxide BUN Creatinine Glucose POC Glucose 164 H 167 H 153 H Lactic Acid Calcium Phosphorus Magnesium AST ALT Lactate Dehydrogenase Total Bilirubin Direct Bilirubin CK-MB (CK-2) C-Reactive Protein NT-Pro-B Natriuret Pep Total Protein Albumin Arterial Blood Glucose Arterial Blood Ionized Calcium Urine WBC (Auto) Urine Creatinine Digoxin 01/16/20 01/16/20 01/17/20 05:46 11:48 06:38 WBC RBC Hgb Hct MCHC RDW MCV MCH Lymph % (Auto) [place] % (Auto) [place] # Eos # Lymph # (Auto) [place] # (Auto) Eos # (Auto) Seg Neutrophils % Seg Neuts % (Manual) Baso # (Auto) Lymphocytes % (Manual) Monocytes % (Manual) Eosinophils % (Manual) Basophils % (Manual) Seg Neutrophils # Seg Neutrophils # Man Lymphocytes # (Manual) Monocytes # (Manual) Eosinophils # (Manual) Nucleated RBC % Basophils # (Manual) PT INR APTT Heparin Anti-Xa Level ABG pH POC ABG pO2 ABG pO2 ABG HCO3 ABG O2 Saturation ABG Base Excess POC ABG pCO2 ABG Hemoglobin ABG Oxyhemoglobin ABG Sodium ABG Chloride ABG Glucose Oxyhemoglobin Carboxyhemoglobin Sodium Potassium Chloride Carbon Dioxide BUN Creatinine Glucose POC Glucose 163 H 155 H 116 H Lactic Acid Calcium Phosphorus Magnesium AST ALT Lactate Dehydrogenase Total Bilirubin Direct Bilirubin CK-MB (CK-2) C-Reactive Protein NT-Pro-B Natriuret Pep Total Protein Albumin Arterial Blood Glucose Arterial Blood Ionized Calcium Urine WBC (Auto) Urine Creatinine Digoxin 01/17/20 01/17/20 01/18/20 11:36 17:43 00:12 WBC RBC Hgb Hct MCHC RDW MCV MCH Lymph % (Auto) [place] % (Auto) [place] # Eos # Lymph # (Auto) [place] # (Auto) Eos # (Auto) Seg Neutrophils % Seg Neuts % (Manual) Baso # (Auto) Lymphocytes % (Manual) Monocytes % (Manual) Eosinophils % (Manual) Basophils % (Manual) Seg Neutrophils # Seg Neutrophils # Man Lymphocytes # (Manual) Monocytes # (Manual) Eosinophils # (Manual) Nucleated RBC % Basophils # (Manual) PT INR APTT Heparin Anti-Xa Level ABG pH POC ABG pO2 ABG pO2 ABG HCO3 ABG O2 Saturation ABG Base Excess POC ABG pCO2 ABG Hemoglobin ABG Oxyhemoglobin ABG Sodium ABG Chloride ABG Glucose Oxyhemoglobin Carboxyhemoglobin Sodium Potassium Chloride Carbon Dioxide BUN Creatinine Glucose POC Glucose 110 H 134 H 108 H Lactic Acid Calcium Phosphorus Magnesium AST ALT Lactate Dehydrogenase Total Bilirubin Direct Bilirubin CK-MB (CK-2) C-Reactive Protein NT-Pro-B Natriuret Pep Total Protein Albumin Arterial Blood Glucose Arterial Blood Ionized Calcium Urine WBC (Auto) Urine Creatinine Digoxin 01/18/20 01/18/20 01/18/20 05:37 06:46 06:46 WBC RBC Hgb 10.1 L Hct 32.2 L MCHC 31 L RDW 18.1 H MCV 81 L MCH 25 L Lymph % (Auto) [place] % (Auto) [place] # Eos # Lymph # (Auto) [place] # (Auto) Eos # (Auto) Seg Neutrophils % 71.9 H Seg Neuts % (Manual) Baso # (Auto) Lymphocytes % (Manual) Monocytes % (Manual) Eosinophils % (Manual) Basophils % (Manual) Seg Neutrophils # Seg Neutrophils # Man Lymphocytes # (Manual) Monocytes # (Manual) Eosinophils # (Manual) Nucleated RBC % Basophils # (Manual) PT INR APTT Heparin Anti-Xa Level ABG pH POC ABG pO2 ABG pO2 ABG HCO3 ABG O2 Saturation ABG Base Excess POC ABG pCO2 ABG Hemoglobin ABG Oxyhemoglobin ABG Sodium ABG Chloride ABG Glucose Oxyhemoglobin Carboxyhemoglobin Sodium Potassium Chloride Carbon Dioxide BUN Creatinine 0.7 L Glucose 155 H POC Glucose 168 H Lactic Acid Calcium Phosphorus Magnesium AST ALT Lactate Dehydrogenase Total Bilirubin Direct Bilirubin CK-MB (CK-2) C-Reactive Protein NT-Pro-B Natriuret Pep Total Protein Albumin Arterial Blood Glucose Arterial Blood Ionized Calcium Urine WBC (Auto) Urine Creatinine Digoxin 01/18/20 01/18/20 01/18/20 12:05 17:14 23:28 WBC RBC Hgb Hct MCHC RDW MCV MCH Lymph % (Auto) [place] % (Auto) [place] # Eos # Lymph # (Auto) [place] # (Auto) Eos # (Auto) Seg Neutrophils % Seg Neuts % (Manual) Baso # (Auto) Lymphocytes % (Manual) Monocytes % (Manual) Eosinophils % (Manual) Basophils % (Manual) Seg Neutrophils # Seg Neutrophils # Man Lymphocytes # (Manual) Monocytes # (Manual) Eosinophils # (Manual) Nucleated RBC % Basophils # (Manual) PT INR APTT Heparin Anti-Xa Level ABG pH POC ABG pO2 ABG pO2 ABG HCO3 ABG O2 Saturation ABG Base Excess POC ABG pCO2 ABG Hemoglobin ABG Oxyhemoglobin ABG Sodium ABG Chloride ABG Glucose Oxyhemoglobin Carboxyhemoglobin Sodium Potassium Chloride Carbon Dioxide BUN Creatinine Glucose POC Glucose 128 H 126 H 128 H Lactic Acid Calcium Phosphorus Magnesium AST ALT Lactate Dehydrogenase Total Bilirubin Direct Bilirubin CK-MB (CK-2) C-Reactive Protein NT-Pro-B Natriuret Pep Total Protein Albumin Arterial Blood Glucose Arterial Blood Ionized Calcium Urine WBC (Auto) Urine Creatinine Digoxin 01/19/20 01/19/20 01/19/20 05:39 12:33 17:36 WBC RBC Hgb Hct MCHC RDW MCV MCH Lymph % (Auto) [place] % (Auto) [place] # Eos # Lymph # (Auto) [place] # (Auto) Eos # (Auto) Seg Neutrophils % Seg Neuts % (Manual) Baso # (Auto) Lymphocytes % (Manual) Monocytes % (Manual) Eosinophils % (Manual) Basophils % (Manual) Seg Neutrophils # Seg Neutrophils # Man Lymphocytes # (Manual) Monocytes # (Manual) Eosinophils # (Manual) Nucleated RBC % Basophils # (Manual) PT INR APTT Heparin Anti-Xa Level ABG pH POC ABG pO2 ABG pO2 ABG HCO3 ABG O2 Saturation ABG Base Excess POC ABG pCO2 ABG Hemoglobin ABG Oxyhemoglobin ABG Sodium ABG Chloride ABG Glucose Oxyhemoglobin Carboxyhemoglobin Sodium Potassium Chloride Carbon Dioxide BUN Creatinine Glucose POC Glucose 164 H 171 H 152 H Lactic Acid Calcium Phosphorus Magnesium AST ALT Lactate Dehydrogenase Total Bilirubin Direct Bilirubin CK-MB (CK-2) C-Reactive Protein NT-Pro-B Natriuret Pep Total Protein Albumin Arterial Blood Glucose Arterial Blood Ionized Calcium Urine WBC (Auto) Urine Creatinine Digoxin 01/20/20 01/20/20 01/20/20 00:12 05:20 05:35 WBC RBC Hgb 9.2 L Hct 29.4 L MCHC 31 L RDW 17.9 H MCV 81 L MCH 25 L Lymph % (Auto) [place] % (Auto) [place] # Eos # Lymph # (Auto) [place] # (Auto) Eos # (Auto) Seg Neutrophils % Seg Neuts % (Manual) Baso # (Auto) Lymphocytes % (Manual) Monocytes % (Manual) Eosinophils % (Manual) Basophils % (Manual) Seg Neutrophils # Seg Neutrophils # Man Lymphocytes # (Manual) Monocytes # (Manual) Eosinophils # (Manual) Nucleated RBC % Basophils # (Manual) PT INR APTT Heparin Anti-Xa Level ABG pH POC ABG pO2 ABG pO2 ABG HCO3 ABG O2 Saturation ABG Base Excess POC ABG pCO2 ABG Hemoglobin ABG Oxyhemoglobin ABG Sodium ABG Chloride ABG Glucose Oxyhemoglobin Carboxyhemoglobin Sodium Potassium Chloride Carbon Dioxide BUN Creatinine Glucose POC Glucose 120 H 136 H Lactic Acid Calcium Phosphorus Magnesium AST ALT Lactate Dehydrogenase Total Bilirubin Direct Bilirubin CK-MB (CK-2) C-Reactive Protein NT-Pro-B Natriuret Pep Total Protein Albumin Arterial Blood Glucose Arterial Blood Ionized Calcium Urine WBC (Auto) Urine Creatinine Digoxin 01/20/20 01/20/20 01/20/20 05:40 11:58 14:55 WBC RBC Hgb 9.0 L Hct 28.3 L MCHC RDW MCV MCH Lymph % (Auto) [place] % (Auto) [place] # Eos # Lymph # (Auto) [place] # (Auto) Eos # (Auto) Seg Neutrophils % Seg Neuts % (Manual) Baso # (Auto) Lymphocytes % (Manual) Monocytes % (Manual) Eosinophils % (Manual) Basophils % (Manual) Seg Neutrophils # Seg Neutrophils # Man Lymphocytes # (Manual) Monocytes # (Manual) Eosinophils # (Manual) Nucleated RBC % Basophils # (Manual) PT INR APTT Heparin Anti-Xa Level ABG pH POC ABG pO2 ABG pO2 ABG HCO3 ABG O2 Saturation ABG Base Excess POC ABG pCO2 ABG Hemoglobin ABG Oxyhemoglobin ABG Sodium ABG Chloride ABG Glucose Oxyhemoglobin Carboxyhemoglobin Sodium Potassium Chloride Carbon Dioxide 32 H BUN 22 H Creatinine 0.7 L Glucose 128 H POC Glucose 152 H Lactic Acid Calcium Phosphorus Magnesium AST ALT Lactate Dehydrogenase Total Bilirubin Direct Bilirubin CK-MB (CK-2) C-Reactive Protein NT-Pro-B Natriuret Pep Total Protein Albumin Arterial Blood Glucose Arterial Blood Ionized Calcium Urine WBC (Auto) Urine Creatinine Digoxin 01/20/20 01/20/20 01/20/20 14:55 18:14 21:35 WBC RBC Hgb Hct MCHC RDW MCV MCH Lymph % (Auto) [place] % (Auto) [place] # Eos # Lymph # (Auto) [place] # (Auto) Eos # (Auto) Seg Neutrophils % Seg Neuts % (Manual) Baso # (Auto) Lymphocytes % (Manual) Monocytes % (Manual) Eosinophils % (Manual) Basophils % (Manual) Seg Neutrophils # Seg Neutrophils # Man Lymphocytes # (Manual) Monocytes # (Manual) Eosinophils # (Manual) Nucleated RBC % Basophils # (Manual) PT 20.4 H INR 1.72 H APTT 40.6 H Heparin Anti-Xa Level > 2.00 H ABG pH POC ABG pO2 ABG pO2 ABG HCO3 ABG O2 Saturation ABG Base Excess POC ABG pCO2 ABG Hemoglobin ABG Oxyhemoglobin ABG Sodium ABG Chloride ABG Glucose Oxyhemoglobin Carboxyhemoglobin Sodium Potassium Chloride Carbon Dioxide BUN Creatinine Glucose POC Glucose 150 H Lactic Acid Calcium Phosphorus Magnesium AST ALT Lactate Dehydrogenase Total Bilirubin Direct Bilirubin CK-MB (CK-2) C-Reactive Protein NT-Pro-B Natriuret Pep Total Protein Albumin Arterial Blood Glucose Arterial Blood Ionized Calcium Urine WBC (Auto) Urine Creatinine Digoxin 01/21/20 01/21/20 01/21/20 00:30 05:47 05:59 WBC RBC Hgb Hct MCHC RDW MCV MCH Lymph % (Auto) [place] % (Auto) [place] # Eos # Lymph # (Auto) [place] # (Auto) Eos # (Auto) Seg Neutrophils % Seg Neuts % (Manual) Baso # (Auto) Lymphocytes % (Manual) Monocytes % (Manual) Eosinophils % (Manual) Basophils % (Manual) Seg Neutrophils # Seg Neutrophils # Man Lymphocytes # (Manual) Monocytes # (Manual) Eosinophils # (Manual) Nucleated RBC % Basophils # (Manual) PT INR APTT Heparin Anti-Xa Level 1.93 H ABG pH POC ABG pO2 ABG pO2 ABG HCO3 ABG O2 Saturation ABG Base Excess POC ABG pCO2 ABG Hemoglobin ABG Oxyhemoglobin ABG Sodium ABG Chloride ABG Glucose Oxyhemoglobin Carboxyhemoglobin Sodium Potassium Chloride Carbon Dioxide BUN Creatinine Glucose POC Glucose 126 H 148 H Lactic Acid Calcium Phosphorus Magnesium AST ALT Lactate Dehydrogenase Total Bilirubin Direct Bilirubin CK-MB (CK-2) C-Reactive Protein NT-Pro-B Natriuret Pep Total Protein Albumin Arterial Blood Glucose Arterial Blood Ionized Calcium Urine WBC (Auto) Urine Creatinine Digoxin 01/21/20 01/21/20 01/21/20 12:32 18:20 23:54 WBC RBC Hgb Hct MCHC RDW MCV MCH Lymph % (Auto) [place] % (Auto) [place] # Eos # Lymph # (Auto) [place] # (Auto) Eos # (Auto) Seg Neutrophils % Seg Neuts % (Manual) Baso # (Auto) Lymphocytes % (Manual) Monocytes % (Manual) Eosinophils % (Manual) Basophils % (Manual) Seg Neutrophils # Seg Neutrophils # Man Lymphocytes # (Manual) Monocytes # (Manual) Eosinophils # (Manual) Nucleated RBC % Basophils # (Manual) PT INR APTT Heparin Anti-Xa Level 1.28 H ABG pH POC ABG pO2 ABG pO2 ABG HCO3 ABG O2 Saturation ABG Base Excess POC ABG pCO2 ABG Hemoglobin ABG Oxyhemoglobin ABG Sodium ABG Chloride ABG Glucose Oxyhemoglobin Carboxyhemoglobin Sodium Potassium Chloride Carbon Dioxide BUN Creatinine Glucose POC Glucose 112 H 146 H Lactic Acid Calcium Phosphorus Magnesium AST ALT Lactate Dehydrogenase Total Bilirubin Direct Bilirubin CK-MB (CK-2) C-Reactive Protein NT-Pro-B Natriuret Pep Total Protein Albumin Arterial Blood Glucose Arterial Blood Ionized Calcium Urine WBC (Auto) Urine Creatinine Digoxin 01/22/20 01/22/20 01/22/20 04:45 04:45 05:48 WBC RBC Hgb 9.3 L Hct 29.0 L MCHC RDW MCV MCH Lymph % (Auto) [place] % (Auto) [place] # Eos # Lymph # (Auto) [place] # (Auto) Eos # (Auto) Seg Neutrophils % Seg Neuts % (Manual) Baso # (Auto) Lymphocytes % (Manual) Monocytes % (Manual) Eosinophils % (Manual) Basophils % (Manual) Seg Neutrophils # Seg Neutrophils # Man Lymphocytes # (Manual) Monocytes # (Manual) Eosinophils # (Manual) Nucleated RBC % Basophils # (Manual) PT INR APTT Heparin Anti-Xa Level 1.34 H ABG pH POC ABG pO2 ABG pO2 ABG HCO3 ABG O2 Saturation ABG Base Excess POC ABG pCO2 ABG Hemoglobin ABG Oxyhemoglobin ABG Sodium ABG Chloride ABG Glucose Oxyhemoglobin Carboxyhemoglobin Sodium Potassium Chloride Carbon Dioxide BUN Creatinine Glucose POC Glucose 142 H Lactic Acid Calcium Phosphorus Magnesium AST ALT Lactate Dehydrogenase Total Bilirubin Direct Bilirubin CK-MB (CK-2) C-Reactive Protein NT-Pro-B Natriuret Pep Total Protein Albumin Arterial Blood Glucose Arterial Blood Ionized Calcium Urine WBC (Auto) Urine Creatinine Digoxin 01/22/20 01/22/20 01/22/20 08:09 08:22 09:58 WBC RBC Hgb Hct MCHC RDW MCV MCH Lymph % (Auto) [place] % (Auto) [place] # Eos # Lymph # (Auto) [place] # (Auto) Eos # (Auto) Seg Neutrophils % Seg Neuts % (Manual) Baso # (Auto) Lymphocytes % (Manual) Monocytes % (Manual) Eosinophils % (Manual) Basophils % (Manual) Seg Neutrophils # Seg Neutrophils # Man Lymphocytes # (Manual) Monocytes # (Manual) Eosinophils # (Manual) Nucleated RBC % Basophils # (Manual) PT 16.9 H INR 1.34 H APTT Heparin Anti-Xa Level ABG pH POC ABG pO2 ABG pO2 ABG HCO3 ABG O2 Saturation ABG Base Excess POC ABG pCO2 ABG Hemoglobin ABG Oxyhemoglobin ABG Sodium ABG Chloride ABG Glucose Oxyhemoglobin Carboxyhemoglobin Sodium Potassium Chloride 97.8 L Carbon Dioxide BUN 29 H Creatinine Glucose 128 H POC Glucose 131 H Lactic Acid Calcium Phosphorus Magnesium AST ALT Lactate Dehydrogenase Total Bilirubin Direct Bilirubin CK-MB (CK-2) C-Reactive Protein NT-Pro-B Natriuret Pep Total Protein Albumin Arterial Blood Glucose Arterial Blood Ionized Calcium Urine WBC (Auto) Urine Creatinine Digoxin 01/22/20 01/22/20 01/22/20 12:44 16:13 18:18 WBC RBC Hgb Hct MCHC RDW MCV MCH Lymph % (Auto) [place] % (Auto) [place] # Eos # Lymph # (Auto) [place] # (Auto) Eos # (Auto) Seg Neutrophils % Seg Neuts % (Manual) Baso # (Auto) Lymphocytes % (Manual) Monocytes % (Manual) Eosinophils % (Manual) Basophils % (Manual) Seg Neutrophils # Seg Neutrophils # Man Lymphocytes # (Manual) Monocytes # (Manual) Eosinophils # (Manual) Nucleated RBC % Basophils # (Manual) PT INR APTT Heparin Anti-Xa Level ABG pH POC ABG pO2 ABG pO2 ABG HCO3 ABG O2 Saturation ABG Base Excess POC ABG pCO2 ABG Hemoglobin ABG Oxyhemoglobin ABG Sodium ABG Chloride ABG Glucose Oxyhemoglobin Carboxyhemoglobin Sodium Potassium Chloride Carbon Dioxide BUN Creatinine Glucose POC Glucose 156 H 133 H 155 H Lactic Acid Calcium Phosphorus Magnesium AST ALT Lactate Dehydrogenase Total Bilirubin Direct Bilirubin CK-MB (CK-2) C-Reactive Protein NT-Pro-B Natriuret Pep Total Protein Albumin Arterial Blood Glucose Arterial Blood Ionized Calcium Urine WBC (Auto) Urine Creatinine Digoxin 01/22/20 01/23/20 01/23/20 23:22 05:37 12:59 WBC RBC Hgb Hct MCHC RDW MCV MCH Lymph % (Auto) [place] % (Auto) [place] # Eos # Lymph # (Auto) [place] # (Auto) Eos # (Auto) Seg Neutrophils % Seg Neuts % (Manual) Baso # (Auto) Lymphocytes % (Manual) Monocytes % (Manual) Eosinophils % (Manual) Basophils % (Manual) Seg Neutrophils # Seg Neutrophils # Man Lymphocytes # (Manual) Monocytes # (Manual) Eosinophils # (Manual) Nucleated RBC % Basophils # (Manual) PT INR APTT Heparin Anti-Xa Level ABG pH POC ABG pO2 ABG pO2 ABG HCO3 ABG O2 Saturation ABG Base Excess POC ABG pCO2 ABG Hemoglobin ABG Oxyhemoglobin ABG Sodium ABG Chloride ABG Glucose Oxyhemoglobin Carboxyhemoglobin Sodium Potassium Chloride Carbon Dioxide BUN Creatinine Glucose POC Glucose 148 H 163 H 175 H Lactic Acid Calcium Phosphorus Magnesium AST ALT Lactate Dehydrogenase Total Bilirubin Direct Bilirubin CK-MB (CK-2) C-Reactive Protein NT-Pro-B Natriuret Pep Total Protein Albumin Arterial Blood Glucose Arterial Blood Ionized Calcium Urine WBC (Auto) Urine Creatinine Digoxin 10/31/20 10/31/20 11/01/20 17:28 23:56 04:30 WBC RBC 3.46 L Hgb 8.8 L Hct 27.8 L MCHC RDW 18.2 H MCV 81 L MCH 25 L Lymph % (Auto) [place] % (Auto) 7.8 H [place] # Eos # Lymph # (Auto) [place] # (Auto) Eos # (Auto) Seg Neutrophils % Seg Neuts % (Manual) Baso # (Auto) Lymphocytes % (Manual) Monocytes % (Manual) Eosinophils % (Manual) Basophils % (Manual) Seg Neutrophils # Seg Neutrophils # Man Lymphocytes # (Manual) Monocytes # (Manual) Eosinophils # (Manual) Nucleated RBC % Basophils # (Manual) PT INR APTT Heparin Anti-Xa Level ABG pH POC ABG pO2 ABG pO2 ABG HCO3 ABG O2 Saturation ABG Base Excess POC ABG pCO2 ABG Hemoglobin ABG Oxyhemoglobin ABG Sodium ABG Chloride ABG Glucose Oxyhemoglobin Carboxyhemoglobin Sodium Potassium Chloride Carbon Dioxide BUN Creatinine Glucose POC Glucose 165 H 177 H Lactic Acid Calcium Phosphorus Magnesium AST ALT Lactate Dehydrogenase Total Bilirubin Direct Bilirubin CK-MB (CK-2) C-Reactive Protein NT-Pro-B Natriuret Pep Total Protein Albumin Arterial Blood Glucose Arterial Blood Ionized Calcium Urine WBC (Auto) Urine Creatinine Digoxin 01/24/20 01/24/20 01/24/20 04:30 07:18 12:06 WBC RBC Hgb Hct MCHC RDW MCV MCH Lymph % (Auto) [place] % (Auto) [place] # Eos # Lymph # (Auto) [place] # (Auto) Eos # (Auto) Seg Neutrophils % Seg Neuts % (Manual) Baso # (Auto) Lymphocytes % (Manual) Monocytes % (Manual) Eosinophils % (Manual) Basophils % (Manual) Seg Neutrophils # Seg Neutrophils # Man Lymphocytes # (Manual) Monocytes # (Manual) Eosinophils # (Manual) Nucleated RBC % Basophils # (Manual) PT INR APTT Heparin Anti-Xa Level ABG pH POC ABG pO2 ABG pO2 ABG HCO3 ABG O2 Saturation ABG Base Excess POC ABG pCO2 ABG Hemoglobin ABG Oxyhemoglobin ABG Sodium ABG Chloride ABG Glucose Oxyhemoglobin Carboxyhemoglobin Sodium Potassium Chloride 97.9 L Carbon Dioxide BUN 31 H Creatinine Glucose 146 H POC Glucose 151 H 133 H Lactic Acid Calcium Phosphorus Magnesium AST ALT Lactate Dehydrogenase Total Bilirubin Direct Bilirubin CK-MB (CK-2) C-Reactive Protein NT-Pro-B Natriuret Pep Total Protein Albumin Arterial Blood Glucose Arterial Blood Ionized Calcium Urine WBC (Auto) Urine Creatinine Digoxin 01/24/20 01/25/20 01/25/20 17:36 00:08 04:25 WBC RBC 3.50 L Hgb 8.7 L Hct 27.9 L MCHC 31 L RDW 18.2 H MCV 80 L MCH 25 L Lymph % (Auto) [place] % (Auto) 8.5 H [place] # Eos # Lymph # (Auto) [place] # (Auto) Eos # (Auto) Seg Neutrophils % Seg Neuts % (Manual) Baso # (Auto) Lymphocytes % (Manual) Monocytes % (Manual) Eosinophils % (Manual) Basophils % (Manual) Seg Neutrophils # Seg Neutrophils # Man Lymphocytes # (Manual) Monocytes # (Manual) Eosinophils # (Manual) Nucleated RBC % Basophils # (Manual) PT INR APTT Heparin Anti-Xa Level ABG pH POC ABG pO2 ABG pO2 ABG HCO3 ABG O2 Saturation ABG Base Excess POC ABG pCO2 ABG Hemoglobin ABG Oxyhemoglobin ABG Sodium ABG Chloride ABG Glucose Oxyhemoglobin Carboxyhemoglobin Sodium Potassium Chloride Carbon Dioxide BUN Creatinine Glucose POC Glucose 133 H 129 H Lactic Acid Calcium Phosphorus Magnesium AST ALT Lactate Dehydrogenase Total Bilirubin Direct Bilirubin CK-MB (CK-2) C-Reactive Protein NT-Pro-B Natriuret Pep Total Protein Albumin Arterial Blood Glucose Arterial Blood Ionized Calcium Urine WBC (Auto) Urine Creatinine Digoxin 01/25/20 01/25/20 01/25/20 04:25 05:38 11:52 WBC RBC Hgb Hct MCHC RDW MCV MCH Lymph % (Auto) [place] % (Auto) [place] # Eos # Lymph # (Auto) [place] # (Auto) Eos # (Auto) Seg Neutrophils % Seg Neuts % (Manual) Baso # (Auto) Lymphocytes % (Manual) Monocytes % (Manual) Eosinophils % (Manual) Basophils % (Manual) Seg Neutrophils # Seg Neutrophils # Man Lymphocytes # (Manual) Monocytes # (Manual) Eosinophils # (Manual) Nucleated RBC % Basophils # (Manual) PT INR APTT Heparin Anti-Xa Level ABG pH POC ABG pO2 ABG pO2 ABG HCO3 ABG O2 Saturation ABG Base Excess POC ABG pCO2 ABG Hemoglobin ABG Oxyhemoglobin ABG Sodium ABG Chloride ABG Glucose Oxyhemoglobin Carboxyhemoglobin Sodium Potassium Chloride Carbon Dioxide BUN 30 H Creatinine Glucose 134 H POC Glucose 129 H 134 H Lactic Acid Calcium Phosphorus Magnesium AST ALT Lactate Dehydrogenase Total Bilirubin Direct Bilirubin CK-MB (CK-2) C-Reactive Protein NT-Pro-B Natriuret Pep Total Protein Albumin Arterial Blood Glucose Arterial Blood Ionized Calcium Urine WBC (Auto) Urine Creatinine Digoxin 01/25/20 01/25/20 01/26/20 17:13 21:02 00:59 WBC RBC Hgb Hct MCHC RDW MCV MCH Lymph % (Auto) [place] % (Auto) [place] # Eos # Lymph # (Auto) [place] # (Auto) Eos # (Auto) Seg Neutrophils % Seg Neuts % (Manual) Baso # (Auto) Lymphocytes % (Manual) Monocytes % (Manual) Eosinophils % (Manual) Basophils % (Manual) Seg Neutrophils # Seg Neutrophils # Man Lymphocytes # (Manual) Monocytes # (Manual) Eosinophils # (Manual) Nucleated RBC % Basophils # (Manual) PT INR APTT Heparin Anti-Xa Level ABG pH POC ABG pO2 ABG pO2 57.5 L ABG HCO3 31.7 H ABG O2 Saturation 90.3 L ABG Base Excess 6.6 H POC ABG pCO2 ABG Hemoglobin 13.0 L ABG Oxyhemoglobin ABG Sodium ABG Chloride ABG Glucose Oxyhemoglobin 87.5 L Carboxyhemoglobin Sodium Potassium Chloride Carbon Dioxide BUN Creatinine Glucose POC Glucose 124 H 196 H Lactic Acid Calcium Phosphorus Magnesium AST ALT Lactate Dehydrogenase Total Bilirubin Direct Bilirubin CK-MB (CK-2) C-Reactive Protein NT-Pro-B Natriuret Pep Total Protein Albumin Arterial Blood Glucose Arterial Blood Ionized Calcium Urine WBC (Auto) Urine Creatinine Digoxin 01/26/20 01/26/20 01/26/20 03:20 05:46 12:46 WBC RBC Hgb 9.2 L Hct 29.4 L MCHC RDW MCV MCH Lymph % (Auto) [place] % (Auto) [place] # Eos # Lymph # (Auto) [place] # (Auto) Eos # (Auto) Seg Neutrophils % Seg Neuts % (Manual) Baso # (Auto) Lymphocytes % (Manual) Monocytes % (Manual) Eosinophils % (Manual) Basophils % (Manual) Seg Neutrophils # Seg Neutrophils # Man Lymphocytes # (Manual) Monocytes # (Manual) Eosinophils # (Manual) Nucleated RBC % Basophils # (Manual) PT INR APTT Heparin Anti-Xa Level ABG pH POC ABG pO2 ABG pO2 ABG HCO3 ABG O2 Saturation ABG Base Excess POC ABG pCO2 ABG Hemoglobin ABG Oxyhemoglobin ABG Sodium ABG Chloride ABG Glucose Oxyhemoglobin Carboxyhemoglobin Sodium Potassium Chloride Carbon Dioxide BUN Creatinine Glucose POC Glucose 141 H 122 H Lactic Acid Calcium Phosphorus Magnesium AST ALT Lactate Dehydrogenase Total Bilirubin Direct Bilirubin CK-MB (CK-2) C-Reactive Protein NT-Pro-B Natriuret Pep Total Protein Albumin Arterial Blood Glucose Arterial Blood Ionized Calcium Urine WBC (Auto) Urine Creatinine Digoxin 01/26/20 01/26/20 01/27/20 18:03 23:55 04:47 WBC RBC Hgb Hct MCHC RDW MCV MCH Lymph % (Auto) [place] % (Auto) [place] # Eos # Lymph # (Auto) [place] # (Auto) Eos # (Auto) Seg Neutrophils % Seg Neuts % (Manual) Baso # (Auto) Lymphocytes % (Manual) Monocytes % (Manual) Eosinophils % (Manual) Basophils % (Manual) Seg Neutrophils # Seg Neutrophils # Man Lymphocytes # (Manual) Monocytes # (Manual) Eosinophils # (Manual) Nucleated RBC % Basophils # (Manual) PT INR APTT Heparin Anti-Xa Level ABG pH POC ABG pO2 ABG pO2 ABG HCO3 ABG O2 Saturation ABG Base Excess POC ABG pCO2 ABG Hemoglobin ABG Oxyhemoglobin ABG Sodium ABG Chloride ABG Glucose Oxyhemoglobin Carboxyhemoglobin Sodium Potassium Chloride Carbon Dioxide BUN 30 H Creatinine 0.7 L Glucose 135 H POC Glucose 142 H 159 H Lactic Acid Calcium Phosphorus Magnesium AST ALT Lactate Dehydrogenase Total Bilirubin Direct Bilirubin CK-MB (CK-2) C-Reactive Protein NT-Pro-B Natriuret Pep Total Protein Albumin Arterial Blood Glucose Arterial Blood Ionized Calcium Urine WBC (Auto) Urine Creatinine Digoxin 01/27/20 01/27/20 01/27/20 05:43 12:06 17:16 WBC RBC Hgb Hct MCHC RDW MCV MCH Lymph % (Auto) [place] % (Auto) [place] # Eos # Lymph # (Auto) [place] # (Auto) Eos # (Auto) Seg Neutrophils % Seg Neuts % (Manual) Baso # (Auto) Lymphocytes % (Manual) Monocytes % (Manual) Eosinophils % (Manual) Basophils % (Manual) Seg Neutrophils # Seg Neutrophils # Man Lymphocytes # (Manual) Monocytes # (Manual) Eosinophils # (Manual) Nucleated RBC % Basophils # (Manual) PT INR APTT Heparin Anti-Xa Level ABG pH POC ABG pO2 ABG pO2 ABG HCO3 ABG O2 Saturation ABG Base Excess POC ABG pCO2 ABG Hemoglobin ABG Oxyhemoglobin ABG Sodium ABG Chloride ABG Glucose Oxyhemoglobin Carboxyhemoglobin Sodium Potassium Chloride Carbon Dioxide BUN Creatinine Glucose POC Glucose 143 H 142 H 128 H Lactic Acid Calcium Phosphorus Magnesium AST ALT Lactate Dehydrogenase Total Bilirubin Direct Bilirubin CK-MB (CK-2) C-Reactive Protein NT-Pro-B Natriuret Pep Total Protein Albumin Arterial Blood Glucose Arterial Blood Ionized Calcium Urine WBC (Auto) Urine Creatinine Digoxin 01/27/20 01/28/20 01/28/20 23:55 04:37 05:55 WBC RBC Hgb 9.4 L Hct 29.9 L MCHC RDW MCV MCH Lymph % (Auto) [place] % (Auto) [place] # Eos # Lymph # (Auto) [place] # (Auto) Eos # (Auto) Seg Neutrophils % Seg Neuts % (Manual) Baso # (Auto) Lymphocytes % (Manual) Monocytes % (Manual) Eosinophils % (Manual) Basophils % (Manual) Seg Neutrophils # Seg Neutrophils # Man Lymphocytes # (Manual) Monocytes # (Manual) Eosinophils # (Manual) Nucleated RBC % Basophils # (Manual) PT INR APTT Heparin Anti-Xa Level ABG pH POC ABG pO2 ABG pO2 ABG HCO3 ABG O2 Saturation ABG Base Excess POC ABG pCO2 ABG Hemoglobin ABG Oxyhemoglobin ABG Sodium ABG Chloride ABG Glucose Oxyhemoglobin Carboxyhemoglobin Sodium Potassium Chloride Carbon Dioxide BUN Creatinine Glucose POC Glucose 166 H 169 H Lactic Acid Calcium Phosphorus Magnesium AST ALT Lactate Dehydrogenase Total Bilirubin Direct Bilirubin CK-MB (CK-2) C-Reactive Protein NT-Pro-B Natriuret Pep Total Protein Albumin Arterial Blood Glucose Arterial Blood Ionized Calcium Urine WBC (Auto) Urine Creatinine Digoxin 01/28/20 01/28/20 01/28/20 11:58 17:26 23:46 WBC RBC Hgb Hct MCHC RDW MCV MCH Lymph % (Auto) [place] % (Auto) [place] # Eos # Lymph # (Auto) [place] # (Auto) Eos # (Auto) Seg Neutrophils % Seg Neuts % (Manual) Baso # (Auto) Lymphocytes % (Manual) Monocytes % (Manual) Eosinophils % (Manual) Basophils % (Manual) Seg Neutrophils # Seg Neutrophils # Man Lymphocytes # (Manual) Monocytes # (Manual) Eosinophils # (Manual) Nucleated RBC % Basophils # (Manual) PT INR APTT Heparin Anti-Xa Level ABG pH POC ABG pO2 ABG pO2 ABG HCO3 ABG O2 Saturation ABG Base Excess POC ABG pCO2 ABG Hemoglobin ABG Oxyhemoglobin ABG Sodium ABG Chloride ABG Glucose Oxyhemoglobin Carboxyhemoglobin Sodium Potassium Chloride Carbon Dioxide BUN Creatinine Glucose POC Glucose 130 H 126 H 150 H Lactic Acid Calcium Phosphorus Magnesium AST ALT Lactate Dehydrogenase Total Bilirubin Direct Bilirubin CK-MB (CK-2) C-Reactive Protein NT-Pro-B Natriuret Pep Total Protein Albumin Arterial Blood Glucose Arterial Blood Ionized Calcium Urine WBC (Auto) Urine Creatinine Digoxin 01/29/20 01/29/20 01/29/20 04:55 06:00 12:28 WBC RBC Hgb Hct MCHC RDW MCV MCH Lymph % (Auto) [place] % (Auto) [place] # Eos # Lymph # (Auto) [place] # (Auto) Eos # (Auto) Seg Neutrophils % Seg Neuts % (Manual) Baso # (Auto) Lymphocytes % (Manual) Monocytes % (Manual) Eosinophils % (Manual) Basophils % (Manual) Seg Neutrophils # Seg Neutrophils # Man Lymphocytes # (Manual) Monocytes # (Manual) Eosinophils # (Manual) Nucleated RBC % Basophils # (Manual) PT INR APTT Heparin Anti-Xa Level ABG pH POC ABG pO2 ABG pO2 ABG HCO3 ABG O2 Saturation ABG Base Excess POC ABG pCO2 ABG Hemoglobin ABG Oxyhemoglobin ABG Sodium ABG Chloride ABG Glucose Oxyhemoglobin Carboxyhemoglobin Sodium Potassium Chloride Carbon Dioxide 34 H BUN Creatinine 0.6 L Glucose 152 H POC Glucose 157 H 156 H Lactic Acid Calcium Phosphorus Magnesium AST ALT Lactate Dehydrogenase Total Bilirubin Direct Bilirubin CK-MB (CK-2) C-Reactive Protein NT-Pro-B Natriuret Pep Total Protein Albumin Arterial Blood Glucose Arterial Blood Ionized Calcium Urine WBC (Auto) Urine Creatinine Digoxin 01/29/20 01/30/20 01/30/20 19:06 00:29 05:39 WBC RBC Hgb Hct MCHC RDW MCV MCH Lymph % (Auto) [place] % (Auto) [place] # Eos # Lymph # (Auto) [place] # (Auto) Eos # (Auto) Seg Neutrophils % Seg Neuts % (Manual) Baso # (Auto) Lymphocytes % (Manual) Monocytes % (Manual) Eosinophils % (Manual) Basophils % (Manual) Seg Neutrophils # Seg Neutrophils # Man Lymphocytes # (Manual) Monocytes # (Manual) Eosinophils # (Manual) Nucleated RBC % Basophils # (Manual) PT INR APTT Heparin Anti-Xa Level ABG pH POC ABG pO2 ABG pO2 ABG HCO3 ABG O2 Saturation ABG Base Excess POC ABG pCO2 ABG Hemoglobin ABG Oxyhemoglobin ABG Sodium ABG Chloride ABG Glucose Oxyhemoglobin Carboxyhemoglobin Sodium Potassium Chloride Carbon Dioxide BUN Creatinine Glucose POC Glucose 152 H 132 H 159 H Lactic Acid Calcium Phosphorus Magnesium AST ALT Lactate Dehydrogenase Total Bilirubin Direct Bilirubin CK-MB (CK-2) C-Reactive Protein NT-Pro-B Natriuret Pep Total Protein Albumin Arterial Blood Glucose Arterial Blood Ionized Calcium Urine WBC (Auto) Urine Creatinine Digoxin 01/30/20 01/30/20 01/30/20 12:27 17:42 23:28 WBC RBC Hgb Hct MCHC RDW MCV MCH Lymph % (Auto) [place] % (Auto) [place] # Eos # Lymph # (Auto) [place] # (Auto) Eos # (Auto) Seg Neutrophils % Seg Neuts % (Manual) Baso # (Auto) Lymphocytes % (Manual) Monocytes % (Manual) Eosinophils % (Manual) Basophils % (Manual) Seg Neutrophils # Seg Neutrophils # Man Lymphocytes # (Manual) Monocytes # (Manual) Eosinophils # (Manual) Nucleated RBC % Basophils # (Manual) PT INR APTT Heparin Anti-Xa Level ABG pH POC ABG pO2 ABG pO2 ABG HCO3 ABG O2 Saturation ABG Base Excess POC ABG pCO2 ABG Hemoglobin ABG Oxyhemoglobin ABG Sodium ABG Chloride ABG Glucose Oxyhemoglobin Carboxyhemoglobin Sodium Potassium Chloride Carbon Dioxide BUN Creatinine Glucose POC Glucose 151 H 144 H 164 H Lactic Acid Calcium Phosphorus Magnesium AST ALT Lactate Dehydrogenase Total Bilirubin Direct Bilirubin CK-MB (CK-2) C-Reactive Protein NT-Pro-B Natriuret Pep Total Protein Albumin Arterial Blood Glucose Arterial Blood Ionized Calcium Urine WBC (Auto) Urine Creatinine Digoxin 01/31/20 01/31/20 01/31/20 05:51 11:51 18:06 WBC RBC Hgb Hct MCHC RDW MCV MCH Lymph % (Auto) [place] % (Auto) [place] # Eos # Lymph # (Auto) [place] # (Auto) Eos # (Auto) Seg Neutrophils % Seg Neuts % (Manual) Baso # (Auto) Lymphocytes % (Manual) Monocytes % (Manual) Eosinophils % (Manual) Basophils % (Manual) Seg Neutrophils # Seg Neutrophils # Man Lymphocytes # (Manual) Monocytes # (Manual) Eosinophils # (Manual) Nucleated RBC % Basophils # (Manual) PT INR APTT Heparin Anti-Xa Level ABG pH POC ABG pO2 ABG pO2 ABG HCO3 ABG O2 Saturation ABG Base Excess POC ABG pCO2 ABG Hemoglobin ABG Oxyhemoglobin ABG Sodium ABG Chloride ABG Glucose Oxyhemoglobin Carboxyhemoglobin Sodium Potassium Chloride Carbon Dioxide BUN Creatinine Glucose POC Glucose 131 H 167 H 210 H Lactic Acid Calcium Phosphorus Magnesium AST ALT Lactate Dehydrogenase Total Bilirubin Direct Bilirubin CK-MB (CK-2) C-Reactive Protein NT-Pro-B Natriuret Pep Total Protein Albumin Arterial Blood Glucose Arterial Blood Ionized Calcium Urine WBC (Auto) Urine Creatinine Digoxin 01/31/20 01/31/20 02/01/20 19:24 Unknown 00:34 WBC RBC Hgb Hct MCHC RDW MCV MCH Lymph % (Auto) [place] % (Auto) [place] # Eos # Lymph # (Auto) [place] # (Auto) Eos # (Auto) Seg Neutrophils % Seg Neuts % (Manual) Baso # (Auto) Lymphocytes % (Manual) Monocytes % (Manual) Eosinophils % (Manual) Basophils % (Manual) Seg Neutrophils # Seg Neutrophils # Man Lymphocytes # (Manual) Monocytes # (Manual) Eosinophils # (Manual) Nucleated RBC % Basophils # (Manual) PT INR APTT Heparin Anti-Xa Level ABG pH POC ABG pO2 ABG pO2 ABG HCO3 ABG O2 Saturation ABG Base Excess POC ABG pCO2 ABG Hemoglobin ABG Oxyhemoglobin ABG Sodium ABG Chloride ABG Glucose Oxyhemoglobin Carboxyhemoglobin Sodium Potassium Chloride 95.3 L Carbon Dioxide 33 H BUN 36 H Creatinine Glucose 187 H POC Glucose 116 H Lactic Acid Calcium Phosphorus Magnesium AST ALT Lactate Dehydrogenase Total Bilirubin Direct Bilirubin CK-MB (CK-2) C-Reactive Protein NT-Pro-B Natriuret Pep Total Protein Albumin Arterial Blood Glucose Arterial Blood Ionized Calcium Urine WBC (Auto) Urine Creatinine 57.4 H Digoxin 02/01/20 02/01/20 02/01/20 05:24 10:40 12:29 WBC RBC Hgb Hct MCHC RDW MCV MCH Lymph % (Auto) [place] % (Auto) [place] # Eos # Lymph # (Auto) [place] # (Auto) Eos # (Auto) Seg Neutrophils % Seg Neuts % (Manual) Baso # (Auto) Lymphocytes % (Manual) Monocytes % (Manual) Eosinophils % (Manual) Basophils % (Manual) Seg Neutrophils # Seg Neutrophils # Man Lymphocytes # (Manual) Monocytes # (Manual) Eosinophils # (Manual) Nucleated RBC % Basophils # (Manual) PT INR APTT Heparin Anti-Xa Level ABG pH POC ABG pO2 ABG pO2 ABG HCO3 ABG O2 Saturation ABG Base Excess POC ABG pCO2 ABG Hemoglobin ABG Oxyhemoglobin ABG Sodium ABG Chloride ABG Glucose Oxyhemoglobin Carboxyhemoglobin Sodium Potassium Chloride Carbon Dioxide BUN Creatinine Glucose POC Glucose 142 H 165 H 151 H Lactic Acid Calcium Phosphorus Magnesium AST ALT Lactate Dehydrogenase Total Bilirubin Direct Bilirubin CK-MB (CK-2) C-Reactive Protein NT-Pro-B Natriuret Pep Total Protein Albumin Arterial Blood Glucose Arterial Blood Ionized Calcium Urine WBC (Auto) Urine Creatinine Digoxin 02/01/20 02/01/20 02/02/20 17:16 23:23 06:36 WBC RBC Hgb Hct MCHC RDW MCV MCH Lymph % (Auto) [place] % (Auto) [place] # Eos # Lymph # (Auto) [place] # (Auto) Eos # (Auto) Seg Neutrophils % Seg Neuts % (Manual) Baso # (Auto) Lymphocytes % (Manual) Monocytes % (Manual) Eosinophils % (Manual) Basophils % (Manual) Seg Neutrophils # Seg Neutrophils # Man Lymphocytes # (Manual) Monocytes # (Manual) Eosinophils # (Manual) Nucleated RBC % Basophils # (Manual) PT INR APTT Heparin Anti-Xa Level ABG pH POC ABG pO2 ABG pO2 ABG HCO3 ABG O2 Saturation ABG Base Excess POC ABG pCO2 ABG Hemoglobin ABG Oxyhemoglobin ABG Sodium ABG Chloride ABG Glucose Oxyhemoglobin Carboxyhemoglobin Sodium Potassium Chloride Carbon Dioxide BUN Creatinine Glucose POC Glucose 137 H 145 H 181 H Lactic Acid Calcium Phosphorus Magnesium AST ALT Lactate Dehydrogenase Total Bilirubin Direct Bilirubin CK-MB (CK-2) C-Reactive Protein NT-Pro-B Natriuret Pep Total Protein Albumin Arterial Blood Glucose Arterial Blood Ionized Calcium Urine WBC (Auto) Urine Creatinine Digoxin 02/02/20 02/02/20 02/02/20 10:01 12:05 17:54 WBC RBC Hgb Hct MCHC RDW MCV MCH Lymph % (Auto) [place] % (Auto) [place] # Eos # Lymph # (Auto) [place] # (Auto) Eos # (Auto) Seg Neutrophils % Seg Neuts % (Manual) Baso # (Auto) Lymphocytes % (Manual) Monocytes % (Manual) Eosinophils % (Manual) Basophils % (Manual) Seg Neutrophils # Seg Neutrophils # Man Lymphocytes # (Manual) Monocytes # (Manual) Eosinophils # (Manual) Nucleated RBC % Basophils # (Manual) PT INR APTT Heparin Anti-Xa Level ABG pH POC ABG pO2 ABG pO2 ABG HCO3 ABG O2 Saturation ABG Base Excess POC ABG pCO2 ABG Hemoglobin ABG Oxyhemoglobin ABG Sodium ABG Chloride ABG Glucose Oxyhemoglobin Carboxyhemoglobin Sodium Potassium Chloride 95.3 L Carbon Dioxide BUN 44 H Creatinine Glucose 234 H POC Glucose 184 H 127 H Lactic Acid Calcium Phosphorus Magnesium AST 363 H ALT 457 H Lactate Dehydrogenase Total Bilirubin Direct Bilirubin CK-MB (CK-2) C-Reactive Protein NT-Pro-B Natriuret Pep Total Protein Albumin 3.0 L Arterial Blood Glucose Arterial Blood Ionized Calcium Urine WBC (Auto) Urine Creatinine Digoxin 02/02/20 02/03/20 02/03/20 23:47 05:32 07:04 WBC 13.0 H RBC Hgb 9.5 L Hct 30.8 L MCHC 31 L RDW 19.6 H MCV 81 L MCH 25 L Lymph % (Auto) [place] % (Auto) 9.4 H [place] # Eos # Lymph # (Auto) [place] # (Auto) 1.2 H Eos # (Auto) Seg Neutrophils % 72.3 H Seg Neuts % (Manual) Baso # (Auto) Lymphocytes % (Manual) Monocytes % (Manual) Eosinophils % (Manual) Basophils % (Manual) Seg Neutrophils # 9.4 H Seg Neutrophils # Man Lymphocytes # (Manual) Monocytes # (Manual) Eosinophils # (Manual) Nucleated RBC % Basophils # (Manual) PT INR APTT Heparin Anti-Xa Level ABG pH POC ABG pO2 ABG pO2 ABG HCO3 ABG O2 Saturation ABG Base Excess POC ABG pCO2 ABG Hemoglobin ABG Oxyhemoglobin ABG Sodium ABG Chloride ABG Glucose Oxyhemoglobin Carboxyhemoglobin Sodium Potassium Chloride Carbon Dioxide BUN Creatinine Glucose POC Glucose 124 H 129 H Lactic Acid Calcium Phosphorus Magnesium AST ALT Lactate Dehydrogenase Total Bilirubin Direct Bilirubin CK-MB (CK-2) C-Reactive Protein NT-Pro-B Natriuret Pep Total Protein Albumin Arterial Blood Glucose Arterial Blood Ionized Calcium Urine WBC (Auto) Urine Creatinine Digoxin 02/03/20 02/03/20 02/03/20 07:04 11:32 12:49 WBC RBC Hgb Hct MCHC RDW MCV MCH Lymph % (Auto) [place] % (Auto) [place] # Eos # Lymph # (Auto) [place] # (Auto) Eos # (Auto) Seg Neutrophils % Seg Neuts % (Manual) Baso # (Auto) Lymphocytes % (Manual) Monocytes % (Manual) Eosinophils % (Manual) Basophils % (Manual) Seg Neutrophils # Seg Neutrophils # Man Lymphocytes # (Manual) Monocytes # (Manual) Eosinophils # (Manual) Nucleated RBC % Basophils # (Manual) PT INR APTT Heparin Anti-Xa Level ABG pH POC ABG pO2 ABG pO2 ABG HCO3 ABG O2 Saturation ABG Base Excess POC ABG pCO2 ABG Hemoglobin ABG Oxyhemoglobin ABG Sodium ABG Chloride ABG Glucose Oxyhemoglobin Carboxyhemoglobin Sodium Potassium Chloride 97.9 L Carbon Dioxide 33 H BUN 39 H Creatinine Glucose 119 H POC Glucose 138 H Lactic Acid Calcium Phosphorus Magnesium 2.60 H AST ALT Lactate Dehydrogenase Total Bilirubin Direct Bilirubin CK-MB (CK-2) C-Reactive Protein NT-Pro-B Natriuret Pep Total Protein Albumin Arterial Blood Glucose Arterial Blood Ionized Calcium Urine WBC (Auto) Urine Creatinine Digoxin 02/03/20 02/04/20 02/04/20 18:28 16:24 16:24 WBC RBC 3.38 L Hgb 8.6 L Hct 26.9 L MCHC RDW 19.5 H MCV 80 L MCH 26 L Lymph % (Auto) [place] % (Auto) [place] # Eos # Lymph # (Auto) [place] # (Auto) Eos # (Auto) Seg Neutrophils % Seg Neuts % (Manual) Baso # (Auto) Lymphocytes % (Manual) Monocytes % (Manual) Eosinophils % (Manual) Basophils % (Manual) Seg Neutrophils # Seg Neutrophils # Man Lymphocytes # (Manual) Monocytes # (Manual) Eosinophils # (Manual) Nucleated RBC % Basophils # (Manual) PT INR APTT Heparin Anti-Xa Level ABG pH POC ABG pO2 ABG pO2 ABG HCO3 ABG O2 Saturation ABG Base Excess POC ABG pCO2 ABG Hemoglobin ABG Oxyhemoglobin ABG Sodium ABG Chloride ABG Glucose Oxyhemoglobin Carboxyhemoglobin Sodium Potassium 3.4 L Chloride Carbon Dioxide 31 H BUN 37 H Creatinine Glucose 70 L POC Glucose 118 H Lactic Acid Calcium Phosphorus Magnesium AST 169 H ALT 394 H Lactate Dehydrogenase Total Bilirubin 1.50 H Direct Bilirubin CK-MB (CK-2) C-Reactive Protein NT-Pro-B Natriuret Pep Total Protein Albumin 2.9 L Arterial Blood Glucose Arterial Blood Ionized Calcium Urine WBC (Auto) Urine Creatinine Digoxin 02/05/20 02/05/20 02/05/20 00:41 06:37 17:14 WBC RBC Hgb Hct MCHC RDW MCV MCH Lymph % (Auto) [place] % (Auto) [place] # Eos # Lymph # (Auto) [place] # (Auto) Eos # (Auto) Seg Neutrophils % Seg Neuts % (Manual) Baso # (Auto) Lymphocytes % (Manual) Monocytes % (Manual) Eosinophils % (Manual) Basophils % (Manual) Seg Neutrophils # Seg Neutrophils # Man Lymphocytes # (Manual) Monocytes # (Manual) Eosinophils # (Manual) Nucleated RBC % Basophils # (Manual) PT INR APTT Heparin Anti-Xa Level ABG pH POC ABG pO2 ABG pO2 ABG HCO3 ABG O2 Saturation ABG Base Excess POC ABG pCO2 ABG Hemoglobin ABG Oxyhemoglobin ABG Sodium ABG Chloride ABG Glucose Oxyhemoglobin Carboxyhemoglobin Sodium Potassium 3.1 L Chloride Carbon Dioxide 35 H BUN 32 H Creatinine 0.7 L Glucose POC Glucose 69 L 127 H Lactic Acid Calcium Phosphorus Magnesium AST 134 H ALT 352 H Lactate Dehydrogenase Total Bilirubin 1.60 H Direct Bilirubin CK-MB (CK-2) C-Reactive Protein NT-Pro-B Natriuret Pep Total Protein Albumin 2.9 L Arterial Blood Glucose Arterial Blood Ionized Calcium Urine WBC (Auto) Urine Creatinine Digoxin 02/05/20 02/06/20 02/06/20 23:43 05:32 08:01 WBC RBC Hgb Hct MCHC RDW MCV MCH Lymph % (Auto) [place] % (Auto) [place] # Eos # Lymph # (Auto) [place] # (Auto) Eos # (Auto) Seg Neutrophils % Seg Neuts % (Manual) Baso # (Auto) Lymphocytes % (Manual) Monocytes % (Manual) Eosinophils % (Manual) Basophils % (Manual) Seg Neutrophils # Seg Neutrophils # Man Lymphocytes # (Manual) Monocytes # (Manual) Eosinophils # (Manual) Nucleated RBC % Basophils # (Manual) PT INR APTT Heparin Anti-Xa Level ABG pH POC ABG pO2 ABG pO2 ABG HCO3 ABG O2 Saturation ABG Base Excess POC ABG pCO2 ABG Hemoglobin ABG Oxyhemoglobin ABG Sodium ABG Chloride ABG Glucose Oxyhemoglobin Carboxyhemoglobin Sodium Potassium Chloride Carbon Dioxide BUN 40 H Creatinine Glucose 132 H POC Glucose 129 H 131 H Lactic Acid Calcium Phosphorus Magnesium AST ALT Lactate Dehydrogenase Total Bilirubin Direct Bilirubin CK-MB (CK-2) C-Reactive Protein NT-Pro-B Natriuret Pep Total Protein Albumin Arterial Blood Glucose Arterial Blood Ionized Calcium Urine WBC (Auto) Urine Creatinine Digoxin 02/06/20 02/06/20 02/06/20 11:51 16:28 17:32 WBC RBC Hgb Hct MCHC RDW MCV MCH Lymph % (Auto) [place] % (Auto) [place] # Eos # Lymph # (Auto) [place] # (Auto) Eos # (Auto) Seg Neutrophils % Seg Neuts % (Manual) Baso # (Auto) Lymphocytes % (Manual) Monocytes % (Manual) Eosinophils % (Manual) Basophils % (Manual) Seg Neutrophils # Seg Neutrophils # Man Lymphocytes # (Manual) Monocytes # (Manual) Eosinophils # (Manual) Nucleated RBC % Basophils # (Manual) PT INR APTT Heparin Anti-Xa Level ABG pH POC ABG pO2 ABG pO2 ABG HCO3 ABG O2 Saturation ABG Base Excess POC ABG pCO2 ABG Hemoglobin ABG Oxyhemoglobin ABG Sodium ABG Chloride ABG Glucose Oxyhemoglobin Carboxyhemoglobin Sodium Potassium Chloride Carbon Dioxide BUN Creatinine Glucose POC Glucose 167 H 129 H Lactic Acid Calcium Phosphorus Magnesium AST 824 H ALT 948 H Lactate Dehydrogenase Total Bilirubin 1.70 H Direct Bilirubin 1.2 H CK-MB (CK-2) C-Reactive Protein NT-Pro-B Natriuret Pep Total Protein Albumin 2.9 L Arterial Blood Glucose Arterial Blood Ionized Calcium Urine WBC (Auto) Urine Creatinine Digoxin 02/07/20 02/07/20 02/07/20 00:11 04:57 04:57 WBC RBC Hgb 9.2 L Hct 29.7 L MCHC 31 L RDW 20.2 H MCV 80 L MCH 25 L Lymph % (Auto) [place] % (Auto) [place] # Eos # Lymph # (Auto) [place] # (Auto) Eos # (Auto) Seg Neutrophils % Seg Neuts % (Manual) Baso # (Auto) Lymphocytes % (Manual) Monocytes % (Manual) Eosinophils % (Manual) Basophils % (Manual) Seg Neutrophils # Seg Neutrophils # Man Lymphocytes # (Manual) Monocytes # (Manual) Eosinophils # (Manual) Nucleated RBC % Basophils # (Manual) PT INR APTT Heparin Anti-Xa Level ABG pH POC ABG pO2 ABG pO2 ABG HCO3 ABG O2 Saturation ABG Base Excess POC ABG pCO2 ABG Hemoglobin ABG Oxyhemoglobin ABG Sodium ABG Chloride ABG Glucose Oxyhemoglobin Carboxyhemoglobin Sodium Potassium 3.4 L D Chloride Carbon Dioxide 32 H BUN 39 H Creatinine Glucose 106 H POC Glucose 121 H Lactic Acid Calcium Phosphorus Magnesium AST ALT Lactate Dehydrogenase Total Bilirubin Direct Bilirubin CK-MB (CK-2) C-Reactive Protein NT-Pro-B Natriuret Pep Total Protein Albumin Arterial Blood Glucose Arterial Blood Ionized Calcium Urine WBC (Auto) Urine Creatinine Digoxin 02/07/20 02/07/20 02/07/20 15:03 15:03 17:11 WBC RBC Hgb Hct MCHC RDW MCV MCH Lymph % (Auto) [place] % (Auto) [place] # Eos # Lymph # (Auto) [place] # (Auto) Eos # (Auto) Seg Neutrophils % Seg Neuts % (Manual) Baso # (Auto) Lymphocytes % (Manual) Monocytes % (Manual) Eosinophils % (Manual) Basophils % (Manual) Seg Neutrophils # Seg Neutrophils # Man Lymphocytes # (Manual) Monocytes # (Manual) Eosinophils # (Manual) Nucleated RBC % Basophils # (Manual) PT 27.0 H INR 2.46 H APTT Heparin Anti-Xa Level ABG pH POC ABG pO2 ABG pO2 ABG HCO3 ABG O2 Saturation ABG Base Excess POC ABG pCO2 ABG Hemoglobin ABG Oxyhemoglobin ABG Sodium ABG Chloride ABG Glucose Oxyhemoglobin Carboxyhemoglobin Sodium Potassium Chloride Carbon Dioxide BUN Creatinine Glucose POC Glucose 109 H Lactic Acid Calcium Phosphorus Magnesium AST 424 H ALT 796 H Lactate Dehydrogenase Total Bilirubin 1.60 H Direct Bilirubin 1.2 H CK-MB (CK-2) C-Reactive Protein NT-Pro-B Natriuret Pep Total Protein Albumin 2.9 L Arterial Blood Glucose Arterial Blood Ionized Calcium Urine WBC (Auto) Urine Creatinine Digoxin 02/08/20 02/08/20 02/08/20 12:14 17:44 19:00 WBC RBC Hgb Hct MCHC RDW MCV MCH Lymph % (Auto) [place] % (Auto) [place] # Eos # Lymph # (Auto) [place] # (Auto) Eos # (Auto) Seg Neutrophils % Seg Neuts % (Manual) Baso # (Auto) Lymphocytes % (Manual) Monocytes % (Manual) Eosinophils % (Manual) Basophils % (Manual) Seg Neutrophils # Seg Neutrophils # Man Lymphocytes # (Manual) Monocytes # (Manual) Eosinophils # (Manual) Nucleated RBC % Basophils # (Manual) PT INR APTT Heparin Anti-Xa Level ABG pH POC ABG pO2 ABG pO2 ABG HCO3 ABG O2 Saturation ABG Base Excess POC ABG pCO2 ABG Hemoglobin ABG Oxyhemoglobin ABG Sodium ABG Chloride ABG Glucose Oxyhemoglobin Carboxyhemoglobin Sodium Potassium Chloride Carbon Dioxide BUN Creatinine Glucose POC Glucose 111 H 107 H Lactic Acid Calcium Phosphorus Magnesium AST 309 H ALT 650 H Lactate Dehydrogenase Total Bilirubin 1.30 H Direct Bilirubin 0.9 H CK-MB (CK-2) C-Reactive Protein NT-Pro-B Natriuret Pep Total Protein 6.2 L Albumin 2.7 L Arterial Blood Glucose Arterial Blood Ionized Calcium Urine WBC (Auto) Urine Creatinine Digoxin 02/09/20 02/09/20 02/09/20 05:41 12:28 18:07 WBC RBC Hgb Hct MCHC RDW MCV MCH Lymph % (Auto) [place] % (Auto) [place] # Eos # Lymph # (Auto) [place] # (Auto) Eos # (Auto) Seg Neutrophils % Seg Neuts % (Manual) Baso # (Auto) Lymphocytes % (Manual) Monocytes % (Manual) Eosinophils % (Manual) Basophils % (Manual) Seg Neutrophils # Seg Neutrophils # Man Lymphocytes # (Manual) Monocytes # (Manual) Eosinophils # (Manual) Nucleated RBC % Basophils # (Manual) PT INR APTT Heparin Anti-Xa Level ABG pH POC ABG pO2 ABG pO2 ABG HCO3 ABG O2 Saturation ABG Base Excess POC ABG pCO2 ABG Hemoglobin ABG Oxyhemoglobin ABG Sodium ABG Chloride ABG Glucose Oxyhemoglobin Carboxyhemoglobin Sodium Potassium Chloride Carbon Dioxide BUN Creatinine Glucose POC Glucose 113 H 140 H 143 H Lactic Acid Calcium Phosphorus Magnesium AST ALT Lactate Dehydrogenase Total Bilirubin Direct Bilirubin CK-MB (CK-2) C-Reactive Protein NT-Pro-B Natriuret Pep Total Protein Albumin Arterial Blood Glucose Arterial Blood Ionized Calcium Urine WBC (Auto) Urine Creatinine Digoxin 02/09/20 02/09/20 02/10/20 21:40 23:45 06:00 WBC RBC Hgb Hct MCHC RDW MCV MCH Lymph % (Auto) [place] % (Auto) [place] # Eos # Lymph # (Auto) [place] # (Auto) Eos # (Auto) Seg Neutrophils % Seg Neuts % (Manual) Baso # (Auto) Lymphocytes % (Manual) Monocytes % (Manual) Eosinophils % (Manual) Basophils % (Manual) Seg Neutrophils # Seg Neutrophils # Man Lymphocytes # (Manual) Monocytes # (Manual) Eosinophils # (Manual) Nucleated RBC % Basophils # (Manual) PT INR APTT Heparin Anti-Xa Level ABG pH POC ABG pO2 ABG pO2 59.8 L ABG HCO3 33.3 H ABG O2 Saturation 88.9 L ABG Base Excess 7.4 H POC ABG pCO2 ABG Hemoglobin 10.4 L ABG Oxyhemoglobin ABG Sodium ABG Chloride ABG Glucose Oxyhemoglobin 86.3 L Carboxyhemoglobin Sodium Potassium Chloride Carbon Dioxide BUN Creatinine Glucose POC Glucose 127 H 114 H Lactic Acid Calcium Phosphorus Magnesium AST ALT Lactate Dehydrogenase Total Bilirubin Direct Bilirubin CK-MB (CK-2) C-Reactive Protein NT-Pro-B Natriuret Pep Total Protein Albumin Arterial Blood Glucose Arterial Blood Ionized Calcium Urine WBC (Auto) Urine Creatinine Digoxin 02/10/20 02/10/20 02/10/20 07:40 07:40 13:38 WBC 11.5 H RBC Hgb 10.6 L Hct 34.7 L MCHC 31 L RDW 19.8 H MCV 79 L MCH 24 L Lymph % (Auto) [place] % (Auto) 9.2 H [place] # Eos # Lymph # (Auto) [place] # (Auto) 1.1 H Eos # (Auto) Seg Neutrophils % Seg Neuts % (Manual) Baso # (Auto) Lymphocytes % (Manual) Monocytes % (Manual) Eosinophils % (Manual) Basophils % (Manual) Seg Neutrophils # Seg Neutrophils # Man Lymphocytes # (Manual) Monocytes # (Manual) Eosinophils # (Manual) Nucleated RBC % Basophils # (Manual) PT INR APTT Heparin Anti-Xa Level ABG pH POC ABG pO2 ABG pO2 ABG HCO3 ABG O2 Saturation ABG Base Excess POC ABG pCO2 ABG Hemoglobin ABG Oxyhemoglobin ABG Sodium ABG Chloride ABG Glucose Oxyhemoglobin Carboxyhemoglobin Sodium 151 H Potassium Chloride 107.2 H Carbon Dioxide 36 H BUN 25 H Creatinine 0.7 L Glucose 114 H POC Glucose 116 H Lactic Acid Calcium Phosphorus Magnesium 2.40 H AST ALT Lactate Dehydrogenase Total Bilirubin Direct Bilirubin CK-MB (CK-2) C-Reactive Protein NT-Pro-B Natriuret Pep Total Protein Albumin Arterial Blood Glucose Arterial Blood Ionized Calcium Urine WBC (Auto) Urine Creatinine Digoxin 02/10/20 02/11/20 02/11/20 17:44 05:47 12:21 WBC RBC Hgb Hct MCHC RDW MCV MCH Lymph % (Auto) [place] % (Auto) [place] # Eos # Lymph # (Auto) [place] # (Auto) Eos # (Auto) Seg Neutrophils % Seg Neuts % (Manual) Baso # (Auto) Lymphocytes % (Manual) Monocytes % (Manual) Eosinophils % (Manual) Basophils % (Manual) Seg Neutrophils # Seg Neutrophils # Man Lymphocytes # (Manual) Monocytes # (Manual) Eosinophils # (Manual) Nucleated RBC % Basophils # (Manual) PT INR APTT Heparin Anti-Xa Level ABG pH POC ABG pO2 ABG pO2 ABG HCO3 ABG O2 Saturation ABG Base Excess POC ABG pCO2 ABG Hemoglobin ABG Oxyhemoglobin ABG Sodium ABG Chloride ABG Glucose Oxyhemoglobin Carboxyhemoglobin Sodium Potassium Chloride Carbon Dioxide BUN Creatinine Glucose POC Glucose 139 H 173 H 143 H Lactic Acid Calcium Phosphorus Magnesium AST ALT Lactate Dehydrogenase Total Bilirubin Direct Bilirubin CK-MB (CK-2) C-Reactive Protein NT-Pro-B Natriuret Pep Total Protein Albumin Arterial Blood Glucose Arterial Blood Ionized Calcium Urine WBC (Auto) Urine Creatinine Digoxin 02/11/20 02/11/20 02/12/20 13:43 14:11 00:15 WBC RBC Hgb Hct MCHC RDW MCV MCH Lymph % (Auto) [place] % (Auto) [place] # Eos # Lymph # (Auto) [place] # (Auto) Eos # (Auto) Seg Neutrophils % Seg Neuts % (Manual) Baso # (Auto) Lymphocytes % (Manual) Monocytes % (Manual) Eosinophils % (Manual) Basophils % (Manual) Seg Neutrophils # Seg Neutrophils # Man Lymphocytes # (Manual) Monocytes # (Manual) Eosinophils # (Manual) Nucleated RBC % Basophils # (Manual) PT INR APTT Heparin Anti-Xa Level ABG pH 7.502 H POC ABG pO2 77.7 L ABG pO2 ABG HCO3 ABG O2 Saturation ABG Base Excess POC ABG pCO2 ABG Hemoglobin 11.1 L ABG Oxyhemoglobin ABG Sodium ABG Chloride 108.0 H ABG Glucose 151 H Oxyhemoglobin Carboxyhemoglobin Sodium Potassium Chloride Carbon Dioxide BUN Creatinine Glucose POC Glucose 130 H 125 H Lactic Acid Calcium Phosphorus Magnesium AST ALT Lactate Dehydrogenase Total Bilirubin Direct Bilirubin CK-MB (CK-2) C-Reactive Protein NT-Pro-B Natriuret Pep Total Protein Albumin Arterial Blood Glucose 151 H Arterial Blood Ionized Calcium Urine WBC (Auto) Urine Creatinine Digoxin 02/12/20 02/12/20 02/12/20 04:56 04:56 17:42 WBC RBC Hgb 9.9 L Hct 31.8 L MCHC 31 L RDW 19.4 H MCV 79 L MCH 25 L Lymph % (Auto) [place] % (Auto) 10.3 H [place] # Eos # Lymph # (Auto) [place] # (Auto) 1.0 H Eos # (Auto) Seg Neutrophils % Seg Neuts % (Manual) Baso # (Auto) Lymphocytes % (Manual) Monocytes % (Manual) Eosinophils % (Manual) Basophils % (Manual) Seg Neutrophils # Seg Neutrophils # Man Lymphocytes # (Manual) Monocytes # (Manual) Eosinophils # (Manual) Nucleated RBC % Basophils # (Manual) PT INR APTT Heparin Anti-Xa Level ABG pH POC ABG pO2 ABG pO2 ABG HCO3 ABG O2 Saturation ABG Base Excess POC ABG pCO2 ABG Hemoglobin ABG Oxyhemoglobin ABG Sodium ABG Chloride ABG Glucose Oxyhemoglobin Carboxyhemoglobin Sodium 149 H Potassium Chloride 108.6 H Carbon Dioxide BUN 28 H Creatinine 0.7 L Glucose 108 H POC Glucose 113 H Lactic Acid Calcium Phosphorus Magnesium AST ALT Lactate Dehydrogenase Total Bilirubin Direct Bilirubin CK-MB (CK-2) C-Reactive Protein NT-Pro-B Natriuret Pep Total Protein Albumin Arterial Blood Glucose Arterial Blood Ionized Calcium Urine WBC (Auto) Urine Creatinine Digoxin 02/13/20 02/13/20 02/13/20 00:39 05:36 12:25 WBC RBC Hgb Hct MCHC RDW MCV MCH Lymph % (Auto) [place] % (Auto) [place] # Eos # Lymph # (Auto) [place] # (Auto) Eos # (Auto) Seg Neutrophils % Seg Neuts % (Manual) Baso # (Auto) Lymphocytes % (Manual) Monocytes % (Manual) Eosinophils % (Manual) Basophils % (Manual) Seg Neutrophils # Seg Neutrophils # Man Lymphocytes # (Manual) Monocytes # (Manual) Eosinophils # (Manual) Nucleated RBC % Basophils # (Manual) PT INR APTT Heparin Anti-Xa Level ABG pH POC ABG pO2 ABG pO2 ABG HCO3 ABG O2 Saturation ABG Base Excess POC ABG pCO2 ABG Hemoglobin ABG Oxyhemoglobin ABG Sodium ABG Chloride ABG Glucose Oxyhemoglobin Carboxyhemoglobin Sodium Potassium Chloride Carbon Dioxide BUN Creatinine Glucose POC Glucose 129 H 126 H 129 H Lactic Acid Calcium Phosphorus Magnesium AST ALT Lactate Dehydrogenase Total Bilirubin Direct Bilirubin CK-MB (CK-2) C-Reactive Protein NT-Pro-B Natriuret Pep Total Protein Albumin Arterial Blood Glucose Arterial Blood Ionized Calcium Urine WBC (Auto) Urine Creatinine Digoxin 02/13/20 02/14/20 02/14/20 17:59 00:15 05:41 WBC RBC Hgb Hct MCHC RDW MCV MCH Lymph % (Auto) [place] % (Auto) [place] # Eos # Lymph # (Auto) [place] # (Auto) Eos # (Auto) Seg Neutrophils % Seg Neuts % (Manual) Baso # (Auto) Lymphocytes % (Manual) Monocytes % (Manual) Eosinophils % (Manual) Basophils % (Manual) Seg Neutrophils # Seg Neutrophils # Man Lymphocytes # (Manual) Monocytes # (Manual) Eosinophils # (Manual) Nucleated RBC % Basophils # (Manual) PT INR APTT Heparin Anti-Xa Level ABG pH POC ABG pO2 ABG pO2 ABG HCO3 ABG O2 Saturation ABG Base Excess POC ABG pCO2 ABG Hemoglobin ABG Oxyhemoglobin ABG Sodium ABG Chloride ABG Glucose Oxyhemoglobin Carboxyhemoglobin Sodium Potassium Chloride Carbon Dioxide BUN Creatinine Glucose POC Glucose 153 H 130 H 130 H Lactic Acid Calcium Phosphorus Magnesium AST ALT Lactate Dehydrogenase Total Bilirubin Direct Bilirubin CK-MB (CK-2) C-Reactive Protein NT-Pro-B Natriuret Pep Total Protein Albumin Arterial Blood Glucose Arterial Blood Ionized Calcium Urine WBC (Auto) Urine Creatinine Digoxin 02/14/20 02/15/20 02/15/20 11:32 00:12 05:27 WBC RBC Hgb Hct MCHC RDW MCV MCH Lymph % (Auto) [place] % (Auto) [place] # Eos # Lymph # (Auto) [place] # (Auto) Eos # (Auto) Seg Neutrophils % Seg Neuts % (Manual) Baso # (Auto) Lymphocytes % (Manual) Monocytes % (Manual) Eosinophils % (Manual) Basophils % (Manual) Seg Neutrophils # Seg Neutrophils # Man Lymphocytes # (Manual) Monocytes # (Manual) Eosinophils # (Manual) Nucleated RBC % Basophils # (Manual) PT INR APTT Heparin Anti-Xa Level ABG pH POC ABG pO2 ABG pO2 ABG HCO3 ABG O2 Saturation ABG Base Excess POC ABG pCO2 ABG Hemoglobin ABG Oxyhemoglobin ABG Sodium ABG Chloride ABG Glucose Oxyhemoglobin Carboxyhemoglobin Sodium Potassium Chloride Carbon Dioxide BUN Creatinine Glucose POC Glucose 157 H 124 H 111 H Lactic Acid Calcium Phosphorus Magnesium AST ALT Lactate Dehydrogenase Total Bilirubin Direct Bilirubin CK-MB (CK-2) C-Reactive Protein NT-Pro-B Natriuret Pep Total Protein Albumin Arterial Blood Glucose Arterial Blood Ionized Calcium Urine WBC (Auto) Urine Creatinine Digoxin 02/15/20 02/15/20 02/15/20 06:59 06:59 11:14 WBC RBC Hgb 10.4 L Hct 33.7 L MCHC 31 L RDW 19.4 H MCV 80 L MCH 24 L Lymph % (Auto) [place] % (Auto) [place] # Eos # Lymph # (Auto) [place] # (Auto) Eos # (Auto) Seg Neutrophils % Seg Neuts % (Manual) Baso # (Auto) Lymphocytes % (Manual) Monocytes % (Manual) Eosinophils % (Manual) Basophils % (Manual) 2.0 H Seg Neutrophils # Seg Neutrophils # Man Lymphocytes # (Manual) Monocytes # (Manual) Eosinophils # (Manual) Nucleated RBC % 1.0 H Basophils # (Manual) 0.2 H PT INR APTT Heparin Anti-Xa Level ABG pH POC ABG pO2 ABG pO2 ABG HCO3 ABG O2 Saturation ABG Base Excess POC ABG pCO2 ABG Hemoglobin ABG Oxyhemoglobin ABG Sodium ABG Chloride ABG Glucose Oxyhemoglobin Carboxyhemoglobin Sodium 149 H Potassium Chloride 108.4 H Carbon Dioxide 31 H BUN 40 H Creatinine 0.7 L Glucose 150 H POC Glucose 128 H Lactic Acid Calcium Phosphorus Magnesium AST ALT Lactate Dehydrogenase Total Bilirubin Direct Bilirubin CK-MB (CK-2) C-Reactive Protein NT-Pro-B Natriuret Pep Total Protein Albumin Arterial Blood Glucose Arterial Blood Ionized Calcium Urine WBC (Auto) Urine Creatinine Digoxin 02/15/20 02/15/20 02/16/20 17:46 23:50 05:03 WBC RBC Hgb Hct MCHC RDW MCV MCH Lymph % (Auto) [place] % (Auto) [place] # Eos # Lymph # (Auto) [place] # (Auto) Eos # (Auto) Seg Neutrophils % Seg Neuts % (Manual) Baso # (Auto) Lymphocytes % (Manual) Monocytes % (Manual) Eosinophils % (Manual) Basophils % (Manual) Seg Neutrophils # Seg Neutrophils # Man Lymphocytes # (Manual) Monocytes # (Manual) Eosinophils # (Manual) Nucleated RBC % Basophils # (Manual) PT INR APTT Heparin Anti-Xa Level ABG pH POC ABG pO2 ABG pO2 ABG HCO3 ABG O2 Saturation ABG Base Excess POC ABG pCO2 ABG Hemoglobin ABG Oxyhemoglobin ABG Sodium ABG Chloride ABG Glucose Oxyhemoglobin Carboxyhemoglobin Sodium Potassium Chloride Carbon Dioxide BUN Creatinine Glucose POC Glucose 154 H 135 H 148 H Lactic Acid Calcium Phosphorus Magnesium AST ALT Lactate Dehydrogenase Total Bilirubin Direct Bilirubin CK-MB (CK-2) C-Reactive Protein NT-Pro-B Natriuret Pep Total Protein Albumin Arterial Blood Glucose Arterial Blood Ionized Calcium Urine WBC (Auto) Urine Creatinine Digoxin 02/16/20 02/16/20 02/16/20 07:53 11:28 17:52 WBC RBC Hgb Hct MCHC RDW MCV MCH Lymph % (Auto) [place] % (Auto) [place] # Eos # Lymph # (Auto) [place] # (Auto) Eos # (Auto) Seg Neutrophils % Seg Neuts % (Manual) Baso # (Auto) Lymphocytes % (Manual) Monocytes % (Manual) Eosinophils % (Manual) Basophils % (Manual) Seg Neutrophils # Seg Neutrophils # Man Lymphocytes # (Manual) Monocytes # (Manual) Eosinophils # (Manual) Nucleated RBC % Basophils # (Manual) PT INR APTT Heparin Anti-Xa Level ABG pH POC ABG pO2 ABG pO2 ABG HCO3 ABG O2 Saturation ABG Base Excess POC ABG pCO2 ABG Hemoglobin ABG Oxyhemoglobin ABG Sodium ABG Chloride ABG Glucose Oxyhemoglobin Carboxyhemoglobin Sodium Potassium Chloride 107.9 H Carbon Dioxide BUN 38 H Creatinine 0.6 L Glucose 151 H POC Glucose 123 H 152 H Lactic Acid Calcium Phosphorus Magnesium AST ALT Lactate Dehydrogenase Total Bilirubin Direct Bilirubin CK-MB (CK-2) C-Reactive Protein NT-Pro-B Natriuret Pep Total Protein Albumin Arterial Blood Glucose Arterial Blood Ionized Calcium Urine WBC (Auto) Urine Creatinine Digoxin 02/16/20 02/17/20 02/17/20 23:49 06:24 11:36 WBC RBC Hgb Hct MCHC RDW MCV MCH Lymph % (Auto) [place] % (Auto) [place] # Eos # Lymph # (Auto) [place] # (Auto) Eos # (Auto) Seg Neutrophils % Seg Neuts % (Manual) Baso # (Auto) Lymphocytes % (Manual) Monocytes % (Manual) Eosinophils % (Manual) Basophils % (Manual) Seg Neutrophils # Seg Neutrophils # Man Lymphocytes # (Manual) Monocytes # (Manual) Eosinophils # (Manual) Nucleated RBC % Basophils # (Manual) PT INR APTT Heparin Anti-Xa Level ABG pH POC ABG pO2 ABG pO2 ABG HCO3 ABG O2 Saturation ABG Base Excess POC ABG pCO2 ABG Hemoglobin ABG Oxyhemoglobin ABG Sodium ABG Chloride ABG Glucose Oxyhemoglobin Carboxyhemoglobin Sodium Potassium Chloride Carbon Dioxide BUN Creatinine Glucose POC Glucose 156 H 193 H 162 H Lactic Acid Calcium Phosphorus Magnesium AST ALT Lactate Dehydrogenase Total Bilirubin Direct Bilirubin CK-MB (CK-2) C-Reactive Protein NT-Pro-B Natriuret Pep Total Protein Albumin Arterial Blood Glucose Arterial Blood Ionized Calcium Urine WBC (Auto) Urine Creatinine Digoxin 02/17/20 02/17/20 02/18/20 17:55 23:28 05:11 WBC RBC Hgb Hct MCHC RDW MCV MCH Lymph % (Auto) [place] % (Auto) [place] # Eos # Lymph # (Auto) [place] # (Auto) Eos # (Auto) Seg Neutrophils % Seg Neuts % (Manual) Baso # (Auto) Lymphocytes % (Manual) Monocytes % (Manual) Eosinophils % (Manual) Basophils % (Manual) Seg Neutrophils # Seg Neutrophils # Man Lymphocytes # (Manual) Monocytes # (Manual) Eosinophils # (Manual) Nucleated RBC % Basophils # (Manual) PT INR APTT Heparin Anti-Xa Level ABG pH POC ABG pO2 ABG pO2 ABG HCO3 ABG O2 Saturation ABG Base Excess POC ABG pCO2 ABG Hemoglobin ABG Oxyhemoglobin ABG Sodium ABG Chloride ABG Glucose Oxyhemoglobin Carboxyhemoglobin Sodium Potassium Chloride Carbon Dioxide BUN Creatinine Glucose POC Glucose 165 H 146 H 122 H Lactic Acid Calcium Phosphorus Magnesium AST ALT Lactate Dehydrogenase Total Bilirubin Direct Bilirubin CK-MB (CK-2) C-Reactive Protein NT-Pro-B Natriuret Pep Total Protein Albumin Arterial Blood Glucose Arterial Blood Ionized Calcium Urine WBC (Auto) Urine Creatinine Digoxin 02/18/20 02/18/20 02/19/20 12:24 17:29 00:01 WBC RBC Hgb Hct MCHC RDW MCV MCH Lymph % (Auto) [place] % (Auto) [place] # Eos # Lymph # (Auto) [place] # (Auto) Eos # (Auto) Seg Neutrophils % Seg Neuts % (Manual) Baso # (Auto) Lymphocytes % (Manual) Monocytes % (Manual) Eosinophils % (Manual) Basophils % (Manual) Seg Neutrophils # Seg Neutrophils # Man Lymphocytes # (Manual) Monocytes # (Manual) Eosinophils # (Manual) Nucleated RBC % Basophils # (Manual) PT INR APTT Heparin Anti-Xa Level ABG pH POC ABG pO2 ABG pO2 ABG HCO3 ABG O2 Saturation ABG Base Excess POC ABG pCO2 ABG Hemoglobin ABG Oxyhemoglobin ABG Sodium ABG Chloride ABG Glucose Oxyhemoglobin Carboxyhemoglobin Sodium Potassium Chloride Carbon Dioxide BUN Creatinine Glucose POC Glucose 162 H 136 H 145 H Lactic Acid Calcium Phosphorus Magnesium AST ALT Lactate Dehydrogenase Total Bilirubin Direct Bilirubin CK-MB (CK-2) C-Reactive Protein NT-Pro-B Natriuret Pep Total Protein Albumin Arterial Blood Glucose Arterial Blood Ionized Calcium Urine WBC (Auto) Urine Creatinine Digoxin 02/19/20 02/19/20 02/19/20 05:53 11:44 17:32 WBC RBC Hgb Hct MCHC RDW MCV MCH Lymph % (Auto) [place] % (Auto) [place] # Eos # Lymph # (Auto) [place] # (Auto) Eos # (Auto) Seg Neutrophils % Seg Neuts % (Manual) Baso # (Auto) Lymphocytes % (Manual) Monocytes % (Manual) Eosinophils % (Manual) Basophils % (Manual) Seg Neutrophils # Seg Neutrophils # Man Lymphocytes # (Manual) Monocytes # (Manual) Eosinophils # (Manual) Nucleated RBC % Basophils # (Manual) PT INR APTT Heparin Anti-Xa Level ABG pH POC ABG pO2 ABG pO2 ABG HCO3 ABG O2 Saturation ABG Base Excess POC ABG pCO2 ABG Hemoglobin ABG Oxyhemoglobin ABG Sodium ABG Chloride ABG Glucose Oxyhemoglobin Carboxyhemoglobin Sodium Potassium Chloride Carbon Dioxide BUN Creatinine Glucose POC Glucose 116 H 120 H 154 H Lactic Acid Calcium Phosphorus Magnesium AST ALT Lactate Dehydrogenase Total Bilirubin Direct Bilirubin CK-MB (CK-2) C-Reactive Protein NT-Pro-B Natriuret Pep Total Protein Albumin Arterial Blood Glucose Arterial Blood Ionized Calcium Urine WBC (Auto) Urine Creatinine Digoxin 02/19/20 02/20/20 02/20/20 23:43 00:24 00:24 WBC RBC Hgb 9.4 L Hct 30.0 L MCHC 31 L RDW 20.4 H MCV 79 L MCH 25 L Lymph % (Auto) [place] % (Auto) 8.5 H [place] # Eos # Lymph # (Auto) [place] # (Auto) Eos # (Auto) Seg Neutrophils % Seg Neuts % (Manual) Baso # (Auto) Lymphocytes % (Manual) Monocytes % (Manual) Eosinophils % (Manual) Basophils % (Manual) Seg Neutrophils # Seg Neutrophils # Man Lymphocytes # (Manual) Monocytes # (Manual) Eosinophils # (Manual) Nucleated RBC % Basophils # (Manual) PT INR APTT Heparin Anti-Xa Level ABG pH POC ABG pO2 ABG pO2 ABG HCO3 ABG O2 Saturation ABG Base Excess POC ABG pCO2 ABG Hemoglobin ABG Oxyhemoglobin ABG Sodium ABG Chloride ABG Glucose Oxyhemoglobin Carboxyhemoglobin Sodium 147 H Potassium 3.4 L Chloride Carbon Dioxide 31 H BUN 34 H Creatinine 0.5 L Glucose 135 H POC Glucose 122 H Lactic Acid Calcium Phosphorus Magnesium AST ALT Lactate Dehydrogenase Total Bilirubin Direct Bilirubin CK-MB (CK-2) C-Reactive Protein NT-Pro-B Natriuret Pep Total Protein Albumin Arterial Blood Glucose Arterial Blood Ionized Calcium Urine WBC (Auto) Urine Creatinine Digoxin 02/20/20 02/20/20 02/20/20 06:07 06:45 12:03 WBC RBC Hgb Hct MCHC RDW MCV MCH Lymph % (Auto) [place] % (Auto) [place] # Eos # Lymph # (Auto) [place] # (Auto) Eos # (Auto) Seg Neutrophils % Seg Neuts % (Manual) Baso # (Auto) Lymphocytes % (Manual) Monocytes % (Manual) Eosinophils % (Manual) Basophils % (Manual) Seg Neutrophils # Seg Neutrophils # Man Lymphocytes # (Manual) Monocytes # (Manual) Eosinophils # (Manual) Nucleated RBC % Basophils # (Manual) PT INR APTT Heparin Anti-Xa Level ABG pH 7.461 H POC ABG pO2 ABG pO2 ABG HCO3 33.3 H ABG O2 Saturation ABG Base Excess 8.4 H POC ABG pCO2 ABG Hemoglobin 10.0 L ABG Oxyhemoglobin ABG Sodium ABG Chloride ABG Glucose Oxyhemoglobin 94.1 L Carboxyhemoglobin Sodium Potassium Chloride Carbon Dioxide BUN Creatinine Glucose POC Glucose 109 H 128 H Lactic Acid Calcium Phosphorus Magnesium AST ALT Lactate Dehydrogenase Total Bilirubin Direct Bilirubin CK-MB (CK-2) C-Reactive Protein NT-Pro-B Natriuret Pep Total Protein Albumin Arterial Blood Glucose Arterial Blood Ionized Calcium Urine WBC (Auto) Urine Creatinine Digoxin 11/02/20/20 02/21/20 18:02 23:55 05:42 WBC RBC Hgb Hct MCHC RDW MCV MCH Lymph % (Auto) [place] % (Auto) [place] # Eos # Lymph # (Auto) [place] # (Auto) Eos # (Auto) Seg Neutrophils % Seg Neuts % (Manual) Baso # (Auto) Lymphocytes % (Manual) Monocytes % (Manual) Eosinophils % (Manual) Basophils % (Manual) Seg Neutrophils # Seg Neutrophils # Man Lymphocytes # (Manual) Monocytes # (Manual) Eosinophils # (Manual) Nucleated RBC % Basophils # (Manual) PT INR APTT Heparin Anti-Xa Level ABG pH POC ABG pO2 ABG pO2 ABG HCO3 ABG O2 Saturation ABG Base Excess POC ABG pCO2 ABG Hemoglobin ABG Oxyhemoglobin ABG Sodium ABG Chloride ABG Glucose Oxyhemoglobin Carboxyhemoglobin Sodium Potassium Chloride Carbon Dioxide BUN Creatinine Glucose POC Glucose 118 H 125 H 127 H Lactic Acid Calcium Phosphorus Magnesium AST ALT Lactate Dehydrogenase Total Bilirubin Direct Bilirubin CK-MB (CK-2) C-Reactive Protein NT-Pro-B Natriuret Pep Total Protein Albumin Arterial Blood Glucose Arterial Blood Ionized Calcium Urine WBC (Auto) Urine Creatinine Digoxin 02/21/20 02/21/20 02/21/20 12:10 17:35 23:40 WBC RBC Hgb Hct MCHC RDW MCV MCH Lymph % (Auto) [place] % (Auto) [place] # Eos # Lymph # (Auto) [place] # (Auto) Eos # (Auto) Seg Neutrophils % Seg Neuts % (Manual) Baso # (Auto) Lymphocytes % (Manual) Monocytes % (Manual) Eosinophils % (Manual) Basophils % (Manual) Seg Neutrophils # Seg Neutrophils # Man Lymphocytes # (Manual) Monocytes # (Manual) Eosinophils # (Manual) Nucleated RBC % Basophils # (Manual) PT INR APTT Heparin Anti-Xa Level ABG pH POC ABG pO2 ABG pO2 ABG HCO3 ABG O2 Saturation ABG Base Excess POC ABG pCO2 ABG Hemoglobin ABG Oxyhemoglobin ABG Sodium ABG Chloride ABG Glucose Oxyhemoglobin Carboxyhemoglobin Sodium Potassium Chloride Carbon Dioxide BUN Creatinine Glucose POC Glucose 128 H 113 H 125 H Lactic Acid Calcium Phosphorus Magnesium AST ALT Lactate Dehydrogenase Total Bilirubin Direct Bilirubin CK-MB (CK-2) C-Reactive Protein NT-Pro-B Natriuret Pep Total Protein Albumin Arterial Blood Glucose Arterial Blood Ionized Calcium Urine WBC (Auto) Urine Creatinine Digoxin 02/22/20 02/22/20 02/22/20 05:57 08:06 08:06 WBC RBC Hgb 10.8 L Hct 35.2 L MCHC 31 L RDW 21.8 H MCV 80 L MCH 25 L Lymph % (Auto) [place] % (Auto) [place] # Eos # Lymph # (Auto) [place] # (Auto) Eos # (Auto) Seg Neutrophils % 71.5 H Seg Neuts % (Manual) Baso # (Auto) Lymphocytes % (Manual) Monocytes % (Manual) Eosinophils % (Manual) Basophils % (Manual) Seg Neutrophils # Seg Neutrophils # Man Lymphocytes # (Manual) Monocytes # (Manual) Eosinophils # (Manual) Nucleated RBC % Basophils # (Manual) PT INR APTT Heparin Anti-Xa Level ABG pH POC ABG pO2 ABG pO2 ABG HCO3 ABG O2 Saturation ABG Base Excess POC ABG pCO2 ABG Hemoglobin ABG Oxyhemoglobin ABG Sodium ABG Chloride ABG Glucose Oxyhemoglobin Carboxyhemoglobin Sodium 146 H Potassium Chloride Carbon Dioxide 34 H BUN 21 H Creatinine 0.4 L Glucose 149 H POC Glucose 138 H Lactic Acid Calcium Phosphorus Magnesium AST ALT Lactate Dehydrogenase Total Bilirubin Direct Bilirubin CK-MB (CK-2) C-Reactive Protein NT-Pro-B Natriuret Pep Total Protein Albumin Arterial Blood Glucose Arterial Blood Ionized Calcium Urine WBC (Auto) Urine Creatinine Digoxin 02/22/20 02/22/20 02/22/20 11:47 17:11 23:25 WBC RBC Hgb Hct MCHC RDW MCV MCH Lymph % (Auto) [place] % (Auto) [place] # Eos # Lymph # (Auto) [place] # (Auto) Eos # (Auto) Seg Neutrophils % Seg Neuts % (Manual) Baso # (Auto) Lymphocytes % (Manual) Monocytes % (Manual) Eosinophils % (Manual) Basophils % (Manual) Seg Neutrophils # Seg Neutrophils # Man Lymphocytes # (Manual) Monocytes # (Manual) Eosinophils # (Manual) Nucleated RBC % Basophils # (Manual) PT INR APTT Heparin Anti-Xa Level ABG pH POC ABG pO2 ABG pO2 ABG HCO3 ABG O2 Saturation ABG Base Excess POC ABG pCO2 ABG Hemoglobin ABG Oxyhemoglobin ABG Sodium ABG Chloride ABG Glucose Oxyhemoglobin Carboxyhemoglobin Sodium Potassium Chloride Carbon Dioxide BUN Creatinine Glucose POC Glucose 149 H 144 H 142 H Lactic Acid Calcium Phosphorus Magnesium AST ALT Lactate Dehydrogenase Total Bilirubin Direct Bilirubin CK-MB (CK-2) C-Reactive Protein NT-Pro-B Natriuret Pep Total Protein Albumin Arterial Blood Glucose Arterial Blood Ionized Calcium Urine WBC (Auto) Urine Creatinine Digoxin 02/23/20 02/23/20 02/23/20 05:22 11:37 18:14 WBC RBC Hgb Hct MCHC RDW MCV MCH Lymph % (Auto) [place] % (Auto) [place] # Eos # Lymph # (Auto) [place] # (Auto) Eos # (Auto) Seg Neutrophils % Seg Neuts % (Manual) Baso # (Auto) Lymphocytes % (Manual) Monocytes % (Manual) Eosinophils % (Manual) Basophils % (Manual) Seg Neutrophils # Seg Neutrophils # Man Lymphocytes # (Manual) Monocytes # (Manual) Eosinophils # (Manual) Nucleated RBC % Basophils # (Manual) PT INR APTT Heparin Anti-Xa Level ABG pH POC ABG pO2 ABG pO2 ABG HCO3 ABG O2 Saturation ABG Base Excess POC ABG pCO2 ABG Hemoglobin ABG Oxyhemoglobin ABG Sodium ABG Chloride ABG Glucose Oxyhemoglobin Carboxyhemoglobin Sodium Potassium Chloride Carbon Dioxide BUN Creatinine Glucose POC Glucose 144 H 113 H 127 H Lactic Acid Calcium Phosphorus Magnesium AST ALT Lactate Dehydrogenase Total Bilirubin Direct Bilirubin CK-MB (CK-2) C-Reactive Protein NT-Pro-B Natriuret Pep Total Protein Albumin Arterial Blood Glucose Arterial Blood Ionized Calcium Urine WBC (Auto) Urine Creatinine Digoxin 02/23/20 02/24/20 02/24/20 23:45 05:50 11:24 WBC RBC Hgb Hct MCHC RDW MCV MCH Lymph % (Auto) [place] % (Auto) [place] # Eos # Lymph # (Auto) [place] # (Auto) Eos # (Auto) Seg Neutrophils % Seg Neuts % (Manual) Baso # (Auto) Lymphocytes % (Manual) Monocytes % (Manual) Eosinophils % (Manual) Basophils % (Manual) Seg Neutrophils # Seg Neutrophils # Man Lymphocytes # (Manual) Monocytes # (Manual) Eosinophils # (Manual) Nucleated RBC % Basophils # (Manual) PT INR APTT Heparin Anti-Xa Level ABG pH POC ABG pO2 ABG pO2 ABG HCO3 ABG O2 Saturation ABG Base Excess POC ABG pCO2 ABG Hemoglobin ABG Oxyhemoglobin ABG Sodium ABG Chloride ABG Glucose Oxyhemoglobin Carboxyhemoglobin Sodium Potassium Chloride Carbon Dioxide BUN Creatinine Glucose POC Glucose 123 H 117 H 126 H Lactic Acid Calcium Phosphorus Magnesium AST ALT Lactate Dehydrogenase Total Bilirubin Direct Bilirubin CK-MB (CK-2) C-Reactive Protein NT-Pro-B Natriuret Pep Total Protein Albumin Arterial Blood Glucose Arterial Blood Ionized Calcium Urine WBC (Auto) Urine Creatinine Digoxin 02/24/20 02/24/20 02/25/20 18:35 23:27 05:20 WBC RBC Hgb Hct MCHC RDW MCV MCH Lymph % (Auto) [place] % (Auto) [place] # Eos # Lymph # (Auto) [place] # (Auto) Eos # (Auto) Seg Neutrophils % Seg Neuts % (Manual) Baso # (Auto) Lymphocytes % (Manual) Monocytes % (Manual) Eosinophils % (Manual) Basophils % (Manual) Seg Neutrophils # Seg Neutrophils # Man Lymphocytes # (Manual) Monocytes # (Manual) Eosinophils # (Manual) Nucleated RBC % Basophils # (Manual) PT INR APTT Heparin Anti-Xa Level ABG pH POC ABG pO2 ABG pO2 ABG HCO3 ABG O2 Saturation ABG Base Excess POC ABG pCO2 ABG Hemoglobin ABG Oxyhemoglobin ABG Sodium ABG Chloride ABG Glucose Oxyhemoglobin Carboxyhemoglobin Sodium Potassium Chloride Carbon Dioxide BUN Creatinine Glucose POC Glucose 121 H 127 H 133 H Lactic Acid Calcium Phosphorus Magnesium AST ALT Lactate Dehydrogenase Total Bilirubin Direct Bilirubin CK-MB (CK-2) C-Reactive Protein NT-Pro-B Natriuret Pep Total Protein Albumin Arterial Blood Glucose Arterial Blood Ionized Calcium Urine WBC (Auto) Urine Creatinine Digoxin 02/25/20 02/25/20 02/25/20 12:08 17:26 23:33 WBC RBC Hgb Hct MCHC RDW MCV MCH Lymph % (Auto) [place] % (Auto) [place] # Eos # Lymph # (Auto) [place] # (Auto) Eos # (Auto) Seg Neutrophils % Seg Neuts % (Manual) Baso # (Auto) Lymphocytes % (Manual) Monocytes % (Manual) Eosinophils % (Manual) Basophils % (Manual) Seg Neutrophils # Seg Neutrophils # Man Lymphocytes # (Manual) Monocytes # (Manual) Eosinophils # (Manual) Nucleated RBC % Basophils # (Manual) PT INR APTT Heparin Anti-Xa Level ABG pH POC ABG pO2 ABG pO2 ABG HCO3 ABG O2 Saturation ABG Base Excess POC ABG pCO2 ABG Hemoglobin ABG Oxyhemoglobin ABG Sodium ABG Chloride ABG Glucose Oxyhemoglobin Carboxyhemoglobin Sodium Potassium Chloride Carbon Dioxide BUN Creatinine Glucose POC Glucose 109 H 120 H 120 H Lactic Acid Calcium Phosphorus Magnesium AST ALT Lactate Dehydrogenase Total Bilirubin Direct Bilirubin CK-MB (CK-2) C-Reactive Protein NT-Pro-B Natriuret Pep Total Protein Albumin Arterial Blood Glucose Arterial Blood Ionized Calcium Urine WBC (Auto) Urine Creatinine Digoxin 02/26/20 02/26/20 02/27/20 05:33 07:50 12:13 WBC RBC Hgb Hct MCHC RDW MCV MCH Lymph % (Auto) [place] % (Auto) [place] # Eos # Lymph # (Auto) [place] # (Auto) Eos # (Auto) Seg Neutrophils % Seg Neuts % (Manual) Baso # (Auto) Lymphocytes % (Manual) Monocytes % (Manual) Eosinophils % (Manual) Basophils % (Manual) Seg Neutrophils # Seg Neutrophils # Man Lymphocytes # (Manual) Monocytes # (Manual) Eosinophils # (Manual) Nucleated RBC % Basophils # (Manual) PT INR APTT Heparin Anti-Xa Level ABG pH POC ABG pO2 ABG pO2 ABG HCO3 ABG O2 Saturation ABG Base Excess POC ABG pCO2 ABG Hemoglobin ABG Oxyhemoglobin ABG Sodium ABG Chloride ABG Glucose Oxyhemoglobin Carboxyhemoglobin Sodium Potassium Chloride Carbon Dioxide BUN Creatinine Glucose POC Glucose 106 H 130 H Lactic Acid Calcium Phosphorus Magnesium AST ALT Lactate Dehydrogenase Total Bilirubin Direct Bilirubin CK-MB (CK-2) C-Reactive Protein NT-Pro-B Natriuret Pep Total Protein Albumin Arterial Blood Glucose Arterial Blood Ionized Calcium Urine WBC (Auto) > 182.0 H Urine Creatinine Digoxin 02/27/20 02/27/20 02/28/20 18:20 23:33 05:01 WBC RBC Hgb Hct MCHC RDW MCV MCH Lymph % (Auto) [place] % (Auto) [place] # Eos # Lymph # (Auto) [place] # (Auto) Eos # (Auto) Seg Neutrophils % Seg Neuts % (Manual) Baso # (Auto) Lymphocytes % (Manual) Monocytes % (Manual) Eosinophils % (Manual) Basophils % (Manual) Seg Neutrophils # Seg Neutrophils # Man Lymphocytes # (Manual) Monocytes # (Manual) Eosinophils # (Manual) Nucleated RBC % Basophils # (Manual) PT INR APTT Heparin Anti-Xa Level ABG pH POC ABG pO2 ABG pO2 ABG HCO3 ABG O2 Saturation ABG Base Excess POC ABG pCO2 ABG Hemoglobin ABG Oxyhemoglobin ABG Sodium ABG Chloride ABG Glucose Oxyhemoglobin Carboxyhemoglobin Sodium Potassium Chloride Carbon Dioxide BUN Creatinine Glucose POC Glucose 109 H 124 H 134 H Lactic Acid Calcium Phosphorus Magnesium AST ALT Lactate Dehydrogenase Total Bilirubin Direct Bilirubin CK-MB (CK-2) C-Reactive Protein NT-Pro-B Natriuret Pep Total Protein Albumin Arterial Blood Glucose Arterial Blood Ionized Calcium Urine WBC (Auto) Urine Creatinine Digoxin 02/28/20 02/28/20 02/28/20 11:54 18:16 23:03 WBC RBC Hgb Hct MCHC RDW MCV MCH Lymph % (Auto) [place] % (Auto) [place] # Eos # Lymph # (Auto) [place] # (Auto) Eos # (Auto) Seg Neutrophils % Seg Neuts % (Manual) Baso # (Auto) Lymphocytes % (Manual) Monocytes % (Manual) Eosinophils % (Manual) Basophils % (Manual) Seg Neutrophils # Seg Neutrophils # Man Lymphocytes # (Manual) Monocytes # (Manual) Eosinophils # (Manual) Nucleated RBC % Basophils # (Manual) PT INR APTT Heparin Anti-Xa Level ABG pH POC ABG pO2 ABG pO2 ABG HCO3 ABG O2 Saturation ABG Base Excess POC ABG pCO2 ABG Hemoglobin ABG Oxyhemoglobin ABG Sodium ABG Chloride ABG Glucose Oxyhemoglobin Carboxyhemoglobin Sodium Potassium Chloride Carbon Dioxide BUN Creatinine Glucose POC Glucose 133 H 134 H 146 H Lactic Acid Calcium Phosphorus Magnesium AST ALT Lactate Dehydrogenase Total Bilirubin Direct Bilirubin CK-MB (CK-2) C-Reactive Protein NT-Pro-B Natriuret Pep Total Protein Albumin Arterial Blood Glucose Arterial Blood Ionized Calcium Urine WBC (Auto) Urine Creatinine Digoxin 02/29/20 02/29/20 02/29/20 05:24 11:34 17:12 WBC RBC Hgb Hct MCHC RDW MCV MCH Lymph % (Auto) [place] % (Auto) [place] # Eos # Lymph # (Auto) [place] # (Auto) Eos # (Auto) Seg Neutrophils % Seg Neuts % (Manual) Baso # (Auto) Lymphocytes % (Manual) Monocytes % (Manual) Eosinophils % (Manual) Basophils % (Manual) Seg Neutrophils # Seg Neutrophils # Man Lymphocytes # (Manual) Monocytes # (Manual) Eosinophils # (Manual) Nucleated RBC % Basophils # (Manual) PT INR APTT Heparin Anti-Xa Level ABG pH POC ABG pO2 ABG pO2 ABG HCO3 ABG O2 Saturation ABG Base Excess POC ABG pCO2 ABG Hemoglobin ABG Oxyhemoglobin ABG Sodium ABG Chloride ABG Glucose Oxyhemoglobin Carboxyhemoglobin Sodium Potassium Chloride Carbon Dioxide BUN Creatinine Glucose POC Glucose 139 H 141 H 157 H Lactic Acid Calcium Phosphorus Magnesium AST ALT Lactate Dehydrogenase Total Bilirubin Direct Bilirubin CK-MB (CK-2) C-Reactive Protein NT-Pro-B Natriuret Pep Total Protein Albumin Arterial Blood Glucose Arterial Blood Ionized Calcium Urine WBC (Auto) Urine Creatinine Digoxin 02/29/20 03/01/20 03/01/20 23:35 06:00 11:53 WBC RBC Hgb Hct MCHC RDW MCV MCH Lymph % (Auto) [place] % (Auto) [place] # Eos # Lymph # (Auto) [place] # (Auto) Eos # (Auto) Seg Neutrophils % Seg Neuts % (Manual) Baso # (Auto) Lymphocytes % (Manual) Monocytes % (Manual) Eosinophils % (Manual) Basophils % (Manual) Seg Neutrophils # Seg Neutrophils # Man Lymphocytes # (Manual) Monocytes # (Manual) Eosinophils # (Manual) Nucleated RBC % Basophils # (Manual) PT INR APTT Heparin Anti-Xa Level ABG pH POC ABG pO2 ABG pO2 ABG HCO3 ABG O2 Saturation ABG Base Excess POC ABG pCO2 ABG Hemoglobin ABG Oxyhemoglobin ABG Sodium ABG Chloride ABG Glucose Oxyhemoglobin Carboxyhemoglobin Sodium Potassium Chloride Carbon Dioxide BUN Creatinine Glucose POC Glucose 120 H 132 H 136 H Lactic Acid Calcium Phosphorus Magnesium AST ALT Lactate Dehydrogenase Total Bilirubin Direct Bilirubin CK-MB (CK-2) C-Reactive Protein NT-Pro-B Natriuret Pep Total Protein Albumin Arterial Blood Glucose Arterial Blood Ionized Calcium Urine WBC (Auto) Urine Creatinine Digoxin 03/01/20 03/01/20 03/02/20 17:36 23:16 05:12 WBC RBC Hgb Hct MCHC RDW MCV MCH Lymph % (Auto) [place] % (Auto) [place] # Eos # Lymph # (Auto) [place] # (Auto) Eos # (Auto) Seg Neutrophils % Seg Neuts % (Manual) Baso # (Auto) Lymphocytes % (Manual) Monocytes % (Manual) Eosinophils % (Manual) Basophils % (Manual) Seg Neutrophils # Seg Neutrophils # Man Lymphocytes # (Manual) Monocytes # (Manual) Eosinophils # (Manual) Nucleated RBC % Basophils # (Manual) PT INR APTT Heparin Anti-Xa Level ABG pH POC ABG pO2 ABG pO2 ABG HCO3 ABG O2 Saturation ABG Base Excess POC ABG pCO2 ABG Hemoglobin ABG Oxyhemoglobin ABG Sodium ABG Chloride ABG Glucose Oxyhemoglobin Carboxyhemoglobin Sodium Potassium Chloride Carbon Dioxide BUN Creatinine Glucose POC Glucose 171 H 164 H 176 H Lactic Acid Calcium Phosphorus Magnesium AST ALT Lactate Dehydrogenase Total Bilirubin Direct Bilirubin CK-MB (CK-2) C-Reactive Protein NT-Pro-B Natriuret Pep Total Protein Albumin Arterial Blood Glucose Arterial Blood Ionized Calcium Urine WBC (Auto) Urine Creatinine Digoxin 03/02/20 03/02/20 03/03/20 11:42 18:01 00:06 WBC RBC Hgb Hct MCHC RDW MCV MCH Lymph % (Auto) [place] % (Auto) [place] # Eos # Lymph # (Auto) [place] # (Auto) Eos # (Auto) Seg Neutrophils % Seg Neuts % (Manual) Baso # (Auto) Lymphocytes % (Manual) Monocytes % (Manual) Eosinophils % (Manual) Basophils % (Manual) Seg Neutrophils # Seg Neutrophils # Man Lymphocytes # (Manual) Monocytes # (Manual) Eosinophils # (Manual) Nucleated RBC % Basophils # (Manual) PT INR APTT Heparin Anti-Xa Level ABG pH POC ABG pO2 ABG pO2 ABG HCO3 ABG O2 Saturation ABG Base Excess POC ABG pCO2 ABG Hemoglobin ABG Oxyhemoglobin ABG Sodium ABG Chloride ABG Glucose Oxyhemoglobin Carboxyhemoglobin Sodium Potassium Chloride Carbon Dioxide BUN Creatinine Glucose POC Glucose 150 H 156 H 156 H Lactic Acid Calcium Phosphorus Magnesium AST ALT Lactate Dehydrogenase Total Bilirubin Direct Bilirubin CK-MB (CK-2) C-Reactive Protein NT-Pro-B Natriuret Pep Total Protein Albumin Arterial Blood Glucose Arterial Blood Ionized Calcium Urine WBC (Auto) Urine Creatinine Digoxin 03/03/20 03/03/20 03/03/20 03:31 11:20 16:55 WBC RBC Hgb Hct MCHC RDW MCV MCH Lymph % (Auto) [place] % (Auto) [place] # Eos # Lymph # (Auto) [place] # (Auto) Eos # (Auto) Seg Neutrophils % Seg Neuts % (Manual) Baso # (Auto) Lymphocytes % (Manual) Monocytes % (Manual) Eosinophils % (Manual) Basophils % (Manual) Seg Neutrophils # Seg Neutrophils # Man Lymphocytes # (Manual) Monocytes # (Manual) Eosinophils # (Manual) Nucleated RBC % Basophils # (Manual) PT INR APTT Heparin Anti-Xa Level ABG pH POC ABG pO2 ABG pO2 ABG HCO3 ABG O2 Saturation ABG Base Excess POC ABG pCO2 ABG Hemoglobin ABG Oxyhemoglobin ABG Sodium ABG Chloride ABG Glucose Oxyhemoglobin Carboxyhemoglobin Sodium Potassium Chloride Carbon Dioxide BUN Creatinine Glucose POC Glucose 164 H 125 H 211 H Lactic Acid Calcium Phosphorus Magnesium AST ALT Lactate Dehydrogenase Total Bilirubin Direct Bilirubin CK-MB (CK-2) C-Reactive Protein NT-Pro-B Natriuret Pep Total Protein Albumin Arterial Blood Glucose Arterial Blood Ionized Calcium Urine WBC (Auto) Urine Creatinine Digoxin 03/04/20 03/04/20 03/04/20 00:29 05:20 12:09 WBC RBC Hgb Hct MCHC RDW MCV MCH Lymph % (Auto) [place] % (Auto) [place] # Eos # Lymph # (Auto) [place] # (Auto) Eos # (Auto) Seg Neutrophils % Seg Neuts % (Manual) Baso # (Auto) Lymphocytes % (Manual) Monocytes % (Manual) Eosinophils % (Manual) Basophils % (Manual) Seg Neutrophils # Seg Neutrophils # Man Lymphocytes # (Manual) Monocytes # (Manual) Eosinophils # (Manual) Nucleated RBC % Basophils # (Manual) PT INR APTT Heparin Anti-Xa Level ABG pH POC ABG pO2 ABG pO2 ABG HCO3 ABG O2 Saturation ABG Base Excess POC ABG pCO2 ABG Hemoglobin ABG Oxyhemoglobin ABG Sodium ABG Chloride ABG Glucose Oxyhemoglobin Carboxyhemoglobin Sodium Potassium Chloride Carbon Dioxide BUN Creatinine Glucose POC Glucose 169 H 154 H 197 H Lactic Acid Calcium Phosphorus Magnesium AST ALT Lactate Dehydrogenase Total Bilirubin Direct Bilirubin CK-MB (CK-2) C-Reactive Protein NT-Pro-B Natriuret Pep Total Protein Albumin Arterial Blood Glucose Arterial Blood Ionized Calcium Urine WBC (Auto) Urine Creatinine Digoxin 03/04/20 03/04/20 03/04/20 18:00 20:38 20:38 WBC RBC Hgb 10.1 L Hct 32.7 L MCHC 31 L RDW 24.7 H MCV 79 L MCH 24 L Lymph % (Auto) [place] % (Auto) 8.9 H [place] # Eos # Lymph # (Auto) [place] # (Auto) Eos # (Auto) Seg Neutrophils % Seg Neuts % (Manual) Baso # (Auto) Lymphocytes % (Manual) Monocytes % (Manual) Eosinophils % (Manual) Basophils % (Manual) Seg Neutrophils # Seg Neutrophils # Man Lymphocytes # (Manual) Monocytes # (Manual) Eosinophils # (Manual) Nucleated RBC % Basophils # (Manual) PT INR APTT Heparin Anti-Xa Level ABG pH POC ABG pO2 ABG pO2 ABG HCO3 ABG O2 Saturation ABG Base Excess POC ABG pCO2 ABG Hemoglobin ABG Oxyhemoglobin ABG Sodium ABG Chloride ABG Glucose Oxyhemoglobin Carboxyhemoglobin Sodium 136 L Potassium Chloride Carbon Dioxide BUN 25 H Creatinine 0.5 L Glucose 148 H POC Glucose 146 H Lactic Acid Calcium Phosphorus Magnesium AST ALT Lactate Dehydrogenase Total Bilirubin Direct Bilirubin CK-MB (CK-2) C-Reactive Protein NT-Pro-B Natriuret Pep Total Protein Albumin Arterial Blood Glucose Arterial Blood Ionized Calcium Urine WBC (Auto) Urine Creatinine Digoxin 03/04/20 03/05/20 03/05/20 23:17 05:44 11:32 WBC RBC Hgb Hct MCHC RDW MCV MCH Lymph % (Auto) [place] % (Auto) [place] # Eos # Lymph # (Auto) [place] # (Auto) Eos # (Auto) Seg Neutrophils % Seg Neuts % (Manual) Baso # (Auto) Lymphocytes % (Manual) Monocytes % (Manual) Eosinophils % (Manual) Basophils % (Manual) Seg Neutrophils # Seg Neutrophils # Man Lymphocytes # (Manual) Monocytes # (Manual) Eosinophils # (Manual) Nucleated RBC % Basophils # (Manual) PT INR APTT Heparin Anti-Xa Level ABG pH POC ABG pO2 ABG pO2 ABG HCO3 ABG O2 Saturation ABG Base Excess POC ABG pCO2 ABG Hemoglobin ABG Oxyhemoglobin ABG Sodium ABG Chloride ABG Glucose Oxyhemoglobin Carboxyhemoglobin Sodium Potassium Chloride Carbon Dioxide BUN Creatinine Glucose POC Glucose 139 H 155 H 124 H Lactic Acid Calcium Phosphorus Magnesium AST ALT Lactate Dehydrogenase Total Bilirubin Direct Bilirubin CK-MB (CK-2) C-Reactive Protein NT-Pro-B Natriuret Pep Total Protein Albumin Arterial Blood Glucose Arterial Blood Ionized Calcium Urine WBC (Auto) Urine Creatinine Digoxin 03/05/20 03/05/20 03/06/20 17:45 23:18 12:16 WBC RBC Hgb Hct MCHC RDW MCV MCH Lymph % (Auto) [place] % (Auto) [place] # Eos # Lymph # (Auto) [place] # (Auto) Eos # (Auto) Seg Neutrophils % Seg Neuts % (Manual) Baso # (Auto) Lymphocytes % (Manual) Monocytes % (Manual) Eosinophils % (Manual) Basophils % (Manual) Seg Neutrophils # Seg Neutrophils # Man Lymphocytes # (Manual) Monocytes # (Manual) Eosinophils # (Manual) Nucleated RBC % Basophils # (Manual) PT INR APTT Heparin Anti-Xa Level ABG pH POC ABG pO2 ABG pO2 ABG HCO3 ABG O2 Saturation ABG Base Excess POC ABG pCO2 ABG Hemoglobin ABG Oxyhemoglobin ABG Sodium ABG Chloride ABG Glucose Oxyhemoglobin Carboxyhemoglobin Sodium Potassium Chloride Carbon Dioxide BUN Creatinine Glucose POC Glucose 171 H 114 H 155 H Lactic Acid Calcium Phosphorus Magnesium AST ALT Lactate Dehydrogenase Total Bilirubin Direct Bilirubin CK-MB (CK-2) C-Reactive Protein NT-Pro-B Natriuret Pep Total Protein Albumin Arterial Blood Glucose Arterial Blood Ionized Calcium Urine WBC (Auto) Urine Creatinine Digoxin 03/06/20 03/06/20 03/07/20 17:27 23:48 06:02 WBC RBC Hgb Hct MCHC RDW MCV MCH Lymph % (Auto) [place] % (Auto) [place] # Eos # Lymph # (Auto) [place] # (Auto) Eos # (Auto) Seg Neutrophils % Seg Neuts % (Manual) Baso # (Auto) Lymphocytes % (Manual) Monocytes % (Manual) Eosinophils % (Manual) Basophils % (Manual) Seg Neutrophils # Seg Neutrophils # Man Lymphocytes # (Manual) Monocytes # (Manual) Eosinophils # (Manual) Nucleated RBC % Basophils # (Manual) PT INR APTT Heparin Anti-Xa Level ABG pH POC ABG pO2 ABG pO2 ABG HCO3 ABG O2 Saturation ABG Base Excess POC ABG pCO2 ABG Hemoglobin ABG Oxyhemoglobin ABG Sodium ABG Chloride ABG Glucose Oxyhemoglobin Carboxyhemoglobin Sodium Potassium Chloride Carbon Dioxide BUN Creatinine Glucose POC Glucose 116 H 142 H 161 H Lactic Acid Calcium Phosphorus Magnesium AST ALT Lactate Dehydrogenase Total Bilirubin Direct Bilirubin CK-MB (CK-2) C-Reactive Protein NT-Pro-B Natriuret Pep Total Protein Albumin Arterial Blood Glucose Arterial Blood Ionized Calcium Urine WBC (Auto) Urine Creatinine Digoxin 03/07/20 03/08/20 03/08/20 11:36 05:18 11:51 WBC RBC Hgb Hct MCHC RDW MCV MCH Lymph % (Auto) [place] % (Auto) [place] # Eos # Lymph # (Auto) [place] # (Auto) Eos # (Auto) Seg Neutrophils % Seg Neuts % (Manual) Baso # (Auto) Lymphocytes % (Manual) Monocytes % (Manual) Eosinophils % (Manual) Basophils % (Manual) Seg Neutrophils # Seg Neutrophils # Man Lymphocytes # (Manual) Monocytes # (Manual) Eosinophils # (Manual) Nucleated RBC % Basophils # (Manual) PT INR APTT Heparin Anti-Xa Level ABG pH POC ABG pO2 ABG pO2 ABG HCO3 ABG O2 Saturation ABG Base Excess POC ABG pCO2 ABG Hemoglobin ABG Oxyhemoglobin ABG Sodium ABG Chloride ABG Glucose Oxyhemoglobin Carboxyhemoglobin Sodium Potassium Chloride Carbon Dioxide BUN Creatinine Glucose POC Glucose 127 H 142 H 135 H Lactic Acid Calcium Phosphorus Magnesium AST ALT Lactate Dehydrogenase Total Bilirubin Direct Bilirubin CK-MB (CK-2) C-Reactive Protein NT-Pro-B Natriuret Pep Total Protein Albumin Arterial Blood Glucose Arterial Blood Ionized Calcium Urine WBC (Auto) Urine Creatinine Digoxin 03/08/20 03/08/20 03/09/20 18:14 23:45 05:36 WBC RBC Hgb Hct MCHC RDW MCV MCH Lymph % (Auto) [place] % (Auto) [place] # Eos # Lymph # (Auto) [place] # (Auto) Eos # (Auto) Seg Neutrophils % Seg Neuts % (Manual) Baso # (Auto) Lymphocytes % (Manual) Monocytes % (Manual) Eosinophils % (Manual) Basophils % (Manual) Seg Neutrophils # Seg Neutrophils # Man Lymphocytes # (Manual) Monocytes # (Manual) Eosinophils # (Manual) Nucleated RBC % Basophils # (Manual) PT INR APTT Heparin Anti-Xa Level ABG pH POC ABG pO2 ABG pO2 ABG HCO3 ABG O2 Saturation ABG Base Excess POC ABG pCO2 ABG Hemoglobin ABG Oxyhemoglobin ABG Sodium ABG Chloride ABG Glucose Oxyhemoglobin Carboxyhemoglobin Sodium Potassium Chloride Carbon Dioxide BUN Creatinine Glucose POC Glucose 125 H 143 H 158 H Lactic Acid Calcium Phosphorus Magnesium AST ALT Lactate Dehydrogenase Total Bilirubin Direct Bilirubin CK-MB (CK-2) C-Reactive Protein NT-Pro-B Natriuret Pep Total Protein Albumin Arterial Blood Glucose Arterial Blood Ionized Calcium Urine WBC (Auto) Urine Creatinine Digoxin 03/09/20 03/09/20 03/09/20 06:32 06:32 11:34 WBC RBC Hgb 9.8 L Hct 31.6 L MCHC 31 L RDW 23.1 H MCV 80 L MCH 25 L Lymph % (Auto) 35.1 H [place] % (Auto) 11.4 H [place] # Eos # Lymph # (Auto) [place] # (Auto) Eos # (Auto) Seg Neutrophils % Seg Neuts % (Manual) Baso # (Auto) Lymphocytes % (Manual) Monocytes % (Manual) Eosinophils % (Manual) Basophils % (Manual) Seg Neutrophils # Seg Neutrophils # Man Lymphocytes # (Manual) Monocytes # (Manual) Eosinophils # (Manual) Nucleated RBC % Basophils # (Manual) PT INR APTT Heparin Anti-Xa Level ABG pH POC ABG pO2 ABG pO2 ABG HCO3 ABG O2 Saturation ABG Base Excess POC ABG pCO2 ABG Hemoglobin ABG Oxyhemoglobin ABG Sodium ABG Chloride ABG Glucose Oxyhemoglobin Carboxyhemoglobin Sodium 136 L Potassium Chloride Carbon Dioxide BUN 25 H Creatinine 0.6 L Glucose 170 H POC Glucose 140 H Lactic Acid Calcium Phosphorus Magnesium AST ALT Lactate Dehydrogenase Total Bilirubin Direct Bilirubin CK-MB (CK-2) C-Reactive Protein NT-Pro-B Natriuret Pep Total Protein Albumin Arterial Blood Glucose Arterial Blood Ionized Calcium Urine WBC (Auto) Urine Creatinine Digoxin 03/09/20 03/09/20 03/10/20 18:10 23:11 05:41 WBC RBC Hgb Hct MCHC RDW MCV MCH Lymph % (Auto) [place] % (Auto) [place] # Eos # Lymph # (Auto) [place] # (Auto) Eos # (Auto) Seg Neutrophils % Seg Neuts % (Manual) Baso # (Auto) Lymphocytes % (Manual) Monocytes % (Manual) Eosinophils % (Manual) Basophils % (Manual) Seg Neutrophils # Seg Neutrophils # Man Lymphocytes # (Manual) Monocytes # (Manual) Eosinophils # (Manual) Nucleated RBC % Basophils # (Manual) PT INR APTT Heparin Anti-Xa Level ABG pH POC ABG pO2 ABG pO2 ABG HCO3 ABG O2 Saturation ABG Base Excess POC ABG pCO2 ABG Hemoglobin ABG Oxyhemoglobin ABG Sodium ABG Chloride ABG Glucose Oxyhemoglobin Carboxyhemoglobin Sodium Potassium Chloride Carbon Dioxide BUN Creatinine Glucose POC Glucose 153 H 111 H 138 H Lactic Acid Calcium Phosphorus Magnesium AST ALT Lactate Dehydrogenase Total Bilirubin Direct Bilirubin CK-MB (CK-2) C-Reactive Protein NT-Pro-B Natriuret Pep Total Protein Albumin Arterial Blood Glucose Arterial Blood Ionized Calcium Urine WBC (Auto) Urine Creatinine Digoxin 03/10/20 03/10/20 03/10/20 11:15 17:58 23:36 WBC RBC Hgb Hct MCHC RDW MCV MCH Lymph % (Auto) [place] % (Auto) [place] # Eos # Lymph # (Auto) [place] # (Auto) Eos # (Auto) Seg Neutrophils % Seg Neuts % (Manual) Baso # (Auto) Lymphocytes % (Manual) Monocytes % (Manual) Eosinophils % (Manual) Basophils % (Manual) Seg Neutrophils # Seg Neutrophils # Man Lymphocytes # (Manual) Monocytes # (Manual) Eosinophils # (Manual) Nucleated RBC % Basophils # (Manual) PT INR APTT Heparin Anti-Xa Level ABG pH POC ABG pO2 ABG pO2 ABG HCO3 ABG O2 Saturation ABG Base Excess POC ABG pCO2 ABG Hemoglobin ABG Oxyhemoglobin ABG Sodium ABG Chloride ABG Glucose Oxyhemoglobin Carboxyhemoglobin Sodium Potassium Chloride Carbon Dioxide BUN Creatinine Glucose POC Glucose 141 H 149 H 148 H Lactic Acid Calcium Phosphorus Magnesium AST ALT Lactate Dehydrogenase Total Bilirubin Direct Bilirubin CK-MB (CK-2) C-Reactive Protein NT-Pro-B Natriuret Pep Total Protein Albumin Arterial Blood Glucose Arterial Blood Ionized Calcium Urine WBC (Auto) Urine Creatinine Digoxin 03/11/20 03/11/20 03/12/20 05:55 17:43 04:45 WBC RBC Hgb Hct MCHC RDW MCV MCH Lymph % (Auto) [place] % (Auto) [place] # Eos # Lymph # (Auto) [place] # (Auto) Eos # (Auto) Seg Neutrophils % Seg Neuts % (Manual) Baso # (Auto) Lymphocytes % (Manual) Monocytes % (Manual) Eosinophils % (Manual) Basophils % (Manual) Seg Neutrophils # Seg Neutrophils # Man Lymphocytes # (Manual) Monocytes # (Manual) Eosinophils # (Manual) Nucleated RBC % Basophils # (Manual) PT INR APTT Heparin Anti-Xa Level ABG pH 7.454 H POC ABG pO2 69.2 L ABG pO2 ABG HCO3 ABG O2 Saturation ABG Base Excess POC ABG pCO2 ABG Hemoglobin 11.2 L ABG Oxyhemoglobin ABG Sodium 134.7 L ABG Chloride ABG Glucose 151 H Oxyhemoglobin Carboxyhemoglobin Sodium Potassium Chloride Carbon Dioxide BUN Creatinine Glucose POC Glucose 181 H 107 H Lactic Acid Calcium Phosphorus Magnesium AST ALT Lactate Dehydrogenase Total Bilirubin Direct Bilirubin CK-MB (CK-2) C-Reactive Protein NT-Pro-B Natriuret Pep Total Protein Albumin Arterial Blood Glucose 151 H Arterial Blood Ionized Calcium Urine WBC (Auto) Urine Creatinine Digoxin 03/12/20 03/12/20 03/12/20 05:36 11:36 17:40 WBC RBC Hgb Hct MCHC RDW MCV MCH Lymph % (Auto) [place] % (Auto) [place] # Eos # Lymph # (Auto) [place] # (Auto) Eos # (Auto) Seg Neutrophils % Seg Neuts % (Manual) Baso # (Auto) Lymphocytes % (Manual) Monocytes % (Manual) Eosinophils % (Manual) Basophils % (Manual) Seg Neutrophils # Seg Neutrophils # Man Lymphocytes # (Manual) Monocytes # (Manual) Eosinophils # (Manual) Nucleated RBC % Basophils # (Manual) PT INR APTT Heparin Anti-Xa Level ABG pH POC ABG pO2 ABG pO2 ABG HCO3 ABG O2 Saturation ABG Base Excess POC ABG pCO2 ABG Hemoglobin ABG Oxyhemoglobin ABG Sodium ABG Chloride ABG Glucose Oxyhemoglobin Carboxyhemoglobin Sodium Potassium Chloride Carbon Dioxide BUN Creatinine Glucose POC Glucose 137 H 122 H 116 H Lactic Acid Calcium Phosphorus Magnesium AST ALT Lactate Dehydrogenase Total Bilirubin Direct Bilirubin CK-MB (CK-2) C-Reactive Protein NT-Pro-B Natriuret Pep Total Protein Albumin Arterial Blood Glucose Arterial Blood Ionized Calcium Urine WBC (Auto) Urine Creatinine Digoxin 03/12/20 03/13/20 03/13/20 23:17 05:47 11:35 WBC RBC Hgb Hct MCHC RDW MCV MCH Lymph % (Auto) [place] % (Auto) [place] # Eos # Lymph # (Auto) [place] # (Auto) Eos # (Auto) Seg Neutrophils % Seg Neuts % (Manual) Baso # (Auto) Lymphocytes % (Manual) Monocytes % (Manual) Eosinophils % (Manual) Basophils % (Manual) Seg Neutrophils # Seg Neutrophils # Man Lymphocytes # (Manual) Monocytes # (Manual) Eosinophils # (Manual) Nucleated RBC % Basophils # (Manual) PT INR APTT Heparin Anti-Xa Level ABG pH POC ABG pO2 ABG pO2 ABG HCO3 ABG O2 Saturation ABG Base Excess POC ABG pCO2 ABG Hemoglobin ABG Oxyhemoglobin ABG Sodium ABG Chloride ABG Glucose Oxyhemoglobin Carboxyhemoglobin Sodium Potassium Chloride Carbon Dioxide BUN Creatinine Glucose POC Glucose 118 H 142 H 146 H Lactic Acid Calcium Phosphorus Magnesium AST ALT Lactate Dehydrogenase Total Bilirubin Direct Bilirubin CK-MB (CK-2) C-Reactive Protein NT-Pro-B Natriuret Pep Total Protein Albumin Arterial Blood Glucose Arterial Blood Ionized Calcium Urine WBC (Auto) Urine Creatinine Digoxin 03/13/20 03/13/20 03/14/20 17:25 23:27 05:04 WBC RBC Hgb Hct MCHC RDW MCV MCH Lymph % (Auto) [place] % (Auto) [place] # Eos # Lymph # (Auto) [place] # (Auto) Eos # (Auto) Seg Neutrophils % Seg Neuts % (Manual) Baso # (Auto) Lymphocytes % (Manual) Monocytes % (Manual) Eosinophils % (Manual) Basophils % (Manual) Seg Neutrophils # Seg Neutrophils # Man Lymphocytes # (Manual) Monocytes # (Manual) Eosinophils # (Manual) Nucleated RBC % Basophils # (Manual) PT INR APTT Heparin Anti-Xa Level ABG pH POC ABG pO2 ABG pO2 ABG HCO3 ABG O2 Saturation ABG Base Excess POC ABG pCO2 ABG Hemoglobin ABG Oxyhemoglobin ABG Sodium ABG Chloride ABG Glucose Oxyhemoglobin Carboxyhemoglobin Sodium Potassium Chloride Carbon Dioxide BUN Creatinine Glucose POC Glucose 138 H 160 H 159 H Lactic Acid Calcium Phosphorus Magnesium AST ALT Lactate Dehydrogenase Total Bilirubin Direct Bilirubin CK-MB (CK-2) C-Reactive Protein NT-Pro-B Natriuret Pep Total Protein Albumin Arterial Blood Glucose Arterial Blood Ionized Calcium Urine WBC (Auto) Urine Creatinine Digoxin 03/14/20 03/14/20 03/15/20 11:19 16:18 00:18 WBC RBC Hgb Hct MCHC RDW MCV MCH Lymph % (Auto) [place] % (Auto) [place] # Eos # Lymph # (Auto) [place] # (Auto) Eos # (Auto) Seg Neutrophils % Seg Neuts % (Manual) Baso # (Auto) Lymphocytes % (Manual) Monocytes % (Manual) Eosinophils % (Manual) Basophils % (Manual) Seg Neutrophils # Seg Neutrophils # Man Lymphocytes # (Manual) Monocytes # (Manual) Eosinophils # (Manual) Nucleated RBC % Basophils # (Manual) PT INR APTT Heparin Anti-Xa Level ABG pH POC ABG pO2 ABG pO2 ABG HCO3 ABG O2 Saturation ABG Base Excess POC ABG pCO2 ABG Hemoglobin ABG Oxyhemoglobin ABG Sodium ABG Chloride ABG Glucose Oxyhemoglobin Carboxyhemoglobin Sodium Potassium Chloride Carbon Dioxide BUN Creatinine Glucose POC Glucose 130 H 170 H 125 H Lactic Acid Calcium Phosphorus Magnesium AST ALT Lactate Dehydrogenase Total Bilirubin Direct Bilirubin CK-MB (CK-2) C-Reactive Protein NT-Pro-B Natriuret Pep Total Protein Albumin Arterial Blood Glucose Arterial Blood Ionized Calcium Urine WBC (Auto) Urine Creatinine Digoxin 03/15/20 03/15/20 03/15/20 04:05 04:05 05:36 WBC RBC Hgb 10.0 L Hct 31.6 L MCHC RDW 22.4 H MCV 77 L MCH 24 L Lymph % (Auto) 36.2 H [place] % (Auto) 9.4 H [place] # Eos # Lymph # (Auto) [place] # (Auto) Eos # (Auto) Seg Neutrophils % Seg Neuts % (Manual) Baso # (Auto) Lymphocytes % (Manual) Monocytes % (Manual) Eosinophils % (Manual) Basophils % (Manual) Seg Neutrophils # Seg Neutrophils # Man Lymphocytes # (Manual) Monocytes # (Manual) Eosinophils # (Manual) Nucleated RBC % Basophils # (Manual) PT INR APTT Heparin Anti-Xa Level ABG pH POC ABG pO2 ABG pO2 ABG HCO3 ABG O2 Saturation ABG Base Excess POC ABG pCO2 ABG Hemoglobin ABG Oxyhemoglobin ABG Sodium ABG Chloride ABG Glucose Oxyhemoglobin Carboxyhemoglobin Sodium Potassium Chloride Carbon Dioxide 32 H BUN Creatinine 0.5 L Glucose 141 H POC Glucose 130 H Lactic Acid Calcium Phosphorus Magnesium AST ALT Lactate Dehydrogenase Total Bilirubin Direct Bilirubin CK-MB (CK-2) C-Reactive Protein NT-Pro-B Natriuret Pep Total Protein Albumin Arterial Blood Glucose Arterial Blood Ionized Calcium Urine WBC (Auto) Urine Creatinine Digoxin 03/15/20 03/15/20 03/15/20 11:41 17:38 23:16 WBC RBC Hgb Hct MCHC RDW MCV MCH Lymph % (Auto) [place] % (Auto) [place] # Eos # Lymph # (Auto) [place] # (Auto) Eos # (Auto) Seg Neutrophils % Seg Neuts % (Manual) Baso # (Auto) Lymphocytes % (Manual) Monocytes % (Manual) Eosinophils % (Manual) Basophils % (Manual) Seg Neutrophils # Seg Neutrophils # Man Lymphocytes # (Manual) Monocytes # (Manual) Eosinophils # (Manual) Nucleated RBC % Basophils # (Manual) PT INR APTT Heparin Anti-Xa Level ABG pH POC ABG pO2 ABG pO2 ABG HCO3 ABG O2 Saturation ABG Base Excess POC ABG pCO2 ABG Hemoglobin ABG Oxyhemoglobin ABG Sodium ABG Chloride ABG Glucose Oxyhemoglobin Carboxyhemoglobin Sodium Potassium Chloride Carbon Dioxide BUN Creatinine Glucose POC Glucose 114 H 144 H 116 H Lactic Acid Calcium Phosphorus Magnesium AST ALT Lactate Dehydrogenase Total Bilirubin Direct Bilirubin CK-MB (CK-2) C-Reactive Protein NT-Pro-B Natriuret Pep Total Protein Albumin Arterial Blood Glucose Arterial Blood Ionized Calcium Urine WBC (Auto) Urine Creatinine Digoxin 03/16/20 03/16/20 03/16/20 05:39 13:16 18:29 WBC RBC Hgb Hct MCHC RDW MCV MCH Lymph % (Auto) [place] % (Auto) [place] # Eos # Lymph # (Auto) [place] # (Auto) Eos # (Auto) Seg Neutrophils % Seg Neuts % (Manual) Baso # (Auto) Lymphocytes % (Manual) Monocytes % (Manual) Eosinophils % (Manual) Basophils % (Manual) Seg Neutrophils # Seg Neutrophils # Man Lymphocytes # (Manual) Monocytes # (Manual) Eosinophils # (Manual) Nucleated RBC % Basophils # (Manual) PT INR APTT Heparin Anti-Xa Level ABG pH POC ABG pO2 ABG pO2 ABG HCO3 ABG O2 Saturation ABG Base Excess POC ABG pCO2 ABG Hemoglobin ABG Oxyhemoglobin ABG Sodium ABG Chloride ABG Glucose Oxyhemoglobin Carboxyhemoglobin Sodium Potassium Chloride Carbon Dioxide BUN Creatinine Glucose POC Glucose 125 H 153 H 135 H Lactic Acid Calcium Phosphorus Magnesium AST ALT Lactate Dehydrogenase Total Bilirubin Direct Bilirubin CK-MB (CK-2) C-Reactive Protein NT-Pro-B Natriuret Pep Total Protein Albumin Arterial Blood Glucose Arterial Blood Ionized Calcium Urine WBC (Auto) Urine Creatinine Digoxin 03/16/20 03/17/20 03/17/20 23:32 05:50 11:38 WBC RBC Hgb Hct MCHC RDW MCV MCH Lymph % (Auto) [place] % (Auto) [place] # Eos # Lymph # (Auto) [place] # (Auto) Eos # (Auto) Seg Neutrophils % Seg Neuts % (Manual) Baso # (Auto) Lymphocytes % (Manual) Monocytes % (Manual) Eosinophils % (Manual) Basophils % (Manual) Seg Neutrophils # Seg Neutrophils # Man Lymphocytes # (Manual) Monocytes # (Manual) Eosinophils # (Manual) Nucleated RBC % Basophils # (Manual) PT INR APTT Heparin Anti-Xa Level ABG pH POC ABG pO2 ABG pO2 ABG HCO3 ABG O2 Saturation ABG Base Excess POC ABG pCO2 ABG Hemoglobin ABG Oxyhemoglobin ABG Sodium ABG Chloride ABG Glucose Oxyhemoglobin Carboxyhemoglobin Sodium Potassium Chloride Carbon Dioxide BUN Creatinine Glucose POC Glucose 137 H 160 H 134 H Lactic Acid Calcium Phosphorus Magnesium AST ALT Lactate Dehydrogenase Total Bilirubin Direct Bilirubin CK-MB (CK-2) C-Reactive Protein NT-Pro-B Natriuret Pep Total Protein Albumin Arterial Blood Glucose Arterial Blood Ionized Calcium Urine WBC (Auto) Urine Creatinine Digoxin 03/17/20 03/17/20 03/18/20 16:59 23:29 05:39 WBC RBC Hgb Hct MCHC RDW MCV MCH Lymph % (Auto) [place] % (Auto) [place] # Eos # Lymph # (Auto) [place] # (Auto) Eos # (Auto) Seg Neutrophils % Seg Neuts % (Manual) Baso # (Auto) Lymphocytes % (Manual) Monocytes % (Manual) Eosinophils % (Manual) Basophils % (Manual) Seg Neutrophils # Seg Neutrophils # Man Lymphocytes # (Manual) Monocytes # (Manual) Eosinophils # (Manual) Nucleated RBC % Basophils # (Manual) PT INR APTT Heparin Anti-Xa Level ABG pH POC ABG pO2 ABG pO2 ABG HCO3 ABG O2 Saturation ABG Base Excess POC ABG pCO2 ABG Hemoglobin ABG Oxyhemoglobin ABG Sodium ABG Chloride ABG Glucose Oxyhemoglobin Carboxyhemoglobin Sodium Potassium Chloride Carbon Dioxide BUN Creatinine Glucose POC Glucose 120 H 141 H 181 H Lactic Acid Calcium Phosphorus Magnesium AST ALT Lactate Dehydrogenase Total Bilirubin Direct Bilirubin CK-MB (CK-2) C-Reactive Protein NT-Pro-B Natriuret Pep Total Protein Albumin Arterial Blood Glucose Arterial Blood Ionized Calcium Urine WBC (Auto) Urine Creatinine Digoxin 03/18/20 03/18/20 03/18/20 11:18 15:34 17:42 WBC RBC Hgb Hct MCHC RDW MCV MCH Lymph % (Auto) [place] % (Auto) [place] # Eos # Lymph # (Auto) [place] # (Auto) Eos # (Auto) Seg Neutrophils % Seg Neuts % (Manual) Baso # (Auto) Lymphocytes % (Manual) Monocytes % (Manual) Eosinophils % (Manual) Basophils % (Manual) Seg Neutrophils # Seg Neutrophils # Man Lymphocytes # (Manual) Monocytes # (Manual) Eosinophils # (Manual) Nucleated RBC % Basophils # (Manual) PT INR APTT Heparin Anti-Xa Level ABG pH POC ABG pO2 ABG pO2 ABG HCO3 ABG O2 Saturation ABG Base Excess POC ABG pCO2 ABG Hemoglobin ABG Oxyhemoglobin ABG Sodium ABG Chloride ABG Glucose Oxyhemoglobin Carboxyhemoglobin Sodium 132 L Potassium 5.4 H D Chloride 96.8 L Carbon Dioxide BUN 24 H Creatinine 0.6 L Glucose 164 H POC Glucose 142 H 118 H Lactic Acid Calcium Phosphorus Magnesium AST ALT Lactate Dehydrogenase Total Bilirubin Direct Bilirubin CK-MB (CK-2) C-Reactive Protein NT-Pro-B Natriuret Pep Total Protein 6.2 L Albumin 2.8 L Arterial Blood Glucose Arterial Blood Ionized Calcium Urine WBC (Auto) Urine Creatinine Digoxin 03/18/20 03/19/20 03/19/20 23:57 05:40 07:50 WBC RBC Hgb Hct MCHC RDW MCV MCH Lymph % (Auto) [place] % (Auto) [place] # Eos # Lymph # (Auto) [place] # (Auto) Eos # (Auto) Seg Neutrophils % Seg Neuts % (Manual) Baso # (Auto) Lymphocytes % (Manual) Monocytes % (Manual) Eosinophils % (Manual) Basophils % (Manual) Seg Neutrophils # Seg Neutrophils # Man Lymphocytes # (Manual) Monocytes # (Manual) Eosinophils # (Manual) Nucleated RBC % Basophils # (Manual) PT INR APTT Heparin Anti-Xa Level ABG pH POC ABG pO2 ABG pO2 ABG HCO3 ABG O2 Saturation ABG Base Excess POC ABG pCO2 ABG Hemoglobin ABG Oxyhemoglobin ABG Sodium ABG Chloride ABG Glucose Oxyhemoglobin Carboxyhemoglobin Sodium 136 L Potassium Chloride 97.3 L Carbon Dioxide 31 H BUN 22 H Creatinine 0.5 L Glucose 160 H POC Glucose 127 H 136 H Lactic Acid Calcium Phosphorus Magnesium AST ALT Lactate Dehydrogenase Total Bilirubin Direct Bilirubin CK-MB (CK-2) C-Reactive Protein NT-Pro-B Natriuret Pep Total Protein Albumin Arterial Blood Glucose Arterial Blood Ionized Calcium Urine WBC (Auto) Urine Creatinine Digoxin 03/19/20 03/19/20 03/20/20 12:21 17:27 00:31 WBC RBC Hgb Hct MCHC RDW MCV MCH Lymph % (Auto) [place] % (Auto) [place] # Eos # Lymph # (Auto) [place] # (Auto) Eos # (Auto) Seg Neutrophils % Seg Neuts % (Manual) Baso # (Auto) Lymphocytes % (Manual) Monocytes % (Manual) Eosinophils % (Manual) Basophils % (Manual) Seg Neutrophils # Seg Neutrophils # Man Lymphocytes # (Manual) Monocytes # (Manual) Eosinophils # (Manual) Nucleated RBC % Basophils # (Manual) PT INR APTT Heparin Anti-Xa Level ABG pH POC ABG pO2 ABG pO2 ABG HCO3 ABG O2 Saturation ABG Base Excess POC ABG pCO2 ABG Hemoglobin ABG Oxyhemoglobin ABG Sodium ABG Chloride ABG Glucose Oxyhemoglobin Carboxyhemoglobin Sodium Potassium Chloride Carbon Dioxide BUN Creatinine Glucose POC Glucose 147 H 152 H 132 H Lactic Acid Calcium Phosphorus Magnesium AST ALT Lactate Dehydrogenase Total Bilirubin Direct Bilirubin CK-MB (CK-2) C-Reactive Protein NT-Pro-B Natriuret Pep Total Protein Albumin Arterial Blood Glucose Arterial Blood Ionized Calcium Urine WBC (Auto) Urine Creatinine Digoxin 03/20/20 03/20/20 03/20/20 05:59 11:45 17:24 WBC RBC Hgb Hct MCHC RDW MCV MCH Lymph % (Auto) [place] % (Auto) [place] # Eos # Lymph # (Auto) [place] # (Auto) Eos # (Auto) Seg Neutrophils % Seg Neuts % (Manual) Baso # (Auto) Lymphocytes % (Manual) Monocytes % (Manual) Eosinophils % (Manual) Basophils % (Manual) Seg Neutrophils # Seg Neutrophils # Man Lymphocytes # (Manual) Monocytes # (Manual) Eosinophils # (Manual) Nucleated RBC % Basophils # (Manual) PT INR APTT Heparin Anti-Xa Level ABG pH POC ABG pO2 ABG pO2 ABG HCO3 ABG O2 Saturation ABG Base Excess POC ABG pCO2 ABG Hemoglobin ABG Oxyhemoglobin ABG Sodium ABG Chloride ABG Glucose Oxyhemoglobin Carboxyhemoglobin Sodium Potassium Chloride Carbon Dioxide BUN Creatinine Glucose POC Glucose 146 H 142 H 107 H Lactic Acid Calcium Phosphorus Magnesium AST ALT Lactate Dehydrogenase Total Bilirubin Direct Bilirubin CK-MB (CK-2) C-Reactive Protein NT-Pro-B Natriuret Pep Total Protein Albumin Arterial Blood Glucose Arterial Blood Ionized Calcium Urine WBC (Auto) Urine Creatinine Digoxin 03/20/20 03/21/20 03/21/20 23:38 05:38 11:22 WBC RBC Hgb Hct MCHC RDW MCV MCH Lymph % (Auto) [place] % (Auto) [place] # Eos # Lymph # (Auto) [place] # (Auto) Eos # (Auto) Seg Neutrophils % Seg Neuts % (Manual) Baso # (Auto) Lymphocytes % (Manual) Monocytes % (Manual) Eosinophils % (Manual) Basophils % (Manual) Seg Neutrophils # Seg Neutrophils # Man Lymphocytes # (Manual) Monocytes # (Manual) Eosinophils # (Manual) Nucleated RBC % Basophils # (Manual) PT INR APTT Heparin Anti-Xa Level ABG pH POC ABG pO2 ABG pO2 ABG HCO3 ABG O2 Saturation ABG Base Excess POC ABG pCO2 ABG Hemoglobin ABG Oxyhemoglobin ABG Sodium ABG Chloride ABG Glucose Oxyhemoglobin Carboxyhemoglobin Sodium Potassium Chloride Carbon Dioxide BUN Creatinine Glucose POC Glucose 115 H 133 H 137 H Lactic Acid Calcium Phosphorus Magnesium AST ALT Lactate Dehydrogenase Total Bilirubin Direct Bilirubin CK-MB (CK-2) C-Reactive Protein NT-Pro-B Natriuret Pep Total Protein Albumin Arterial Blood Glucose Arterial Blood Ionized Calcium Urine WBC (Auto) Urine Creatinine Digoxin 03/21/20 03/22/20 03/22/20 18:26 00:10 05:29 WBC RBC Hgb Hct MCHC RDW MCV MCH Lymph % (Auto) [place] % (Auto) [place] # Eos # Lymph # (Auto) [place] # (Auto) Eos # (Auto) Seg Neutrophils % Seg Neuts % (Manual) Baso # (Auto) Lymphocytes % (Manual) Monocytes % (Manual) Eosinophils % (Manual) Basophils % (Manual) Seg Neutrophils # Seg Neutrophils # Man Lymphocytes # (Manual) Monocytes # (Manual) Eosinophils # (Manual) Nucleated RBC % Basophils # (Manual) PT INR APTT Heparin Anti-Xa Level ABG pH POC ABG pO2 ABG pO2 ABG HCO3 ABG O2 Saturation ABG Base Excess POC ABG pCO2 ABG Hemoglobin ABG Oxyhemoglobin ABG Sodium ABG Chloride ABG Glucose Oxyhemoglobin Carboxyhemoglobin Sodium Potassium Chloride Carbon Dioxide BUN Creatinine Glucose POC Glucose 200 H 123 H 156 H Lactic Acid Calcium Phosphorus Magnesium AST ALT Lactate Dehydrogenase Total Bilirubin Direct Bilirubin CK-MB (CK-2) C-Reactive Protein NT-Pro-B Natriuret Pep Total Protein Albumin Arterial Blood Glucose Arterial Blood Ionized Calcium Urine WBC (Auto) Urine Creatinine Digoxin 03/22/20 03/22/20 03/22/20 06:39 06:39 06:39 WBC RBC Hgb 9.7 L Hct 30.7 L MCHC RDW 22.2 H MCV 77 L MCH 25 L Lymph % (Auto) [place] % (Auto) 9.0 H [place] # Eos # Lymph # (Auto) [place] # (Auto) Eos # (Auto) Seg Neutrophils % Seg Neuts % (Manual) Baso # (Auto) Lymphocytes % (Manual) Monocytes % (Manual) Eosinophils % (Manual) Basophils % (Manual) Seg Neutrophils # Seg Neutrophils # Man Lymphocytes # (Manual) Monocytes # (Manual) Eosinophils # (Manual) Nucleated RBC % Basophils # (Manual) PT INR APTT Heparin Anti-Xa Level ABG pH POC ABG pO2 ABG pO2 ABG HCO3 ABG O2 Saturation ABG Base Excess POC ABG pCO2 ABG Hemoglobin ABG Oxyhemoglobin ABG Sodium ABG Chloride ABG Glucose Oxyhemoglobin Carboxyhemoglobin Sodium Potassium Chloride Carbon Dioxide 33 H BUN Creatinine 0.5 L Glucose 147 H POC Glucose Lactic Acid Calcium Phosphorus Magnesium AST ALT Lactate Dehydrogenase Total Bilirubin Direct Bilirubin CK-MB (CK-2) C-Reactive Protein NT-Pro-B Natriuret Pep Total Protein Albumin Arterial Blood Glucose Arterial Blood Ionized Calcium Urine WBC (Auto) Urine Creatinine Digoxin 0.8 L 03/22/20 03/22/20 03/22/20 11:22 17:49 23:38 WBC RBC Hgb Hct MCHC RDW MCV MCH Lymph % (Auto) [place] % (Auto) [place] # Eos # Lymph # (Auto) [place] # (Auto) Eos # (Auto) Seg Neutrophils % Seg Neuts % (Manual) Baso # (Auto) Lymphocytes % (Manual) Monocytes % (Manual) Eosinophils % (Manual) Basophils % (Manual) Seg Neutrophils # Seg Neutrophils # Man Lymphocytes # (Manual) Monocytes # (Manual) Eosinophils # (Manual) Nucleated RBC % Basophils # (Manual) PT INR APTT Heparin Anti-Xa Level ABG pH POC ABG pO2 ABG pO2 ABG HCO3 ABG O2 Saturation ABG Base Excess POC ABG pCO2 ABG Hemoglobin ABG Oxyhemoglobin ABG Sodium ABG Chloride ABG Glucose Oxyhemoglobin Carboxyhemoglobin Sodium Potassium Chloride Carbon Dioxide BUN Creatinine Glucose POC Glucose 159 H 119 H 129 H Lactic Acid Calcium Phosphorus Magnesium AST ALT Lactate Dehydrogenase Total Bilirubin Direct Bilirubin CK-MB (CK-2) C-Reactive Protein NT-Pro-B Natriuret Pep Total Protein Albumin Arterial Blood Glucose Arterial Blood Ionized Calcium Urine WBC (Auto) Urine Creatinine Digoxin 03/23/20 03/23/20 03/23/20 05:02 11:38 17:01 WBC RBC Hgb Hct MCHC RDW MCV MCH Lymph % (Auto) [place] % (Auto) [place] # Eos # Lymph # (Auto) [place] # (Auto) Eos # (Auto) Seg Neutrophils % Seg Neuts % (Manual) Baso # (Auto) Lymphocytes % (Manual) Monocytes % (Manual) Eosinophils % (Manual) Basophils % (Manual) Seg Neutrophils # Seg Neutrophils # Man Lymphocytes # (Manual) Monocytes # (Manual) Eosinophils # (Manual) Nucleated RBC % Basophils # (Manual) PT INR APTT Heparin Anti-Xa Level ABG pH POC ABG pO2 ABG pO2 ABG HCO3 ABG O2 Saturation ABG Base Excess POC ABG pCO2 ABG Hemoglobin ABG Oxyhemoglobin ABG Sodium ABG Chloride ABG Glucose Oxyhemoglobin Carboxyhemoglobin Sodium Potassium Chloride Carbon Dioxide BUN Creatinine Glucose POC Glucose 136 H 129 H 122 H Lactic Acid Calcium Phosphorus Magnesium AST ALT Lactate Dehydrogenase Total Bilirubin Direct Bilirubin CK-MB (CK-2) C-Reactive Protein NT-Pro-B Natriuret Pep Total Protein Albumin Arterial Blood Glucose Arterial Blood Ionized Calcium Urine WBC (Auto) Urine Creatinine Digoxin 03/23/20 03/24/20 03/24/20 23:35 06:55 11:43 WBC RBC Hgb Hct MCHC RDW MCV MCH Lymph % (Auto) [place] % (Auto) [place] # Eos # Lymph # (Auto) [place] # (Auto) Eos # (Auto) Seg Neutrophils % Seg Neuts % (Manual) Baso # (Auto) Lymphocytes % (Manual) Monocytes % (Manual) Eosinophils % (Manual) Basophils % (Manual) Seg Neutrophils # Seg Neutrophils # Man Lymphocytes # (Manual) Monocytes # (Manual) Eosinophils # (Manual) Nucleated RBC % Basophils # (Manual) PT INR APTT Heparin Anti-Xa Level ABG pH POC ABG pO2 ABG pO2 ABG HCO3 ABG O2 Saturation ABG Base Excess POC ABG pCO2 ABG Hemoglobin ABG Oxyhemoglobin ABG Sodium ABG Chloride ABG Glucose Oxyhemoglobin Carboxyhemoglobin Sodium Potassium Chloride Carbon Dioxide BUN Creatinine Glucose POC Glucose 115 H 122 H 135 H Lactic Acid Calcium Phosphorus Magnesium AST ALT Lactate Dehydrogenase Total Bilirubin Direct Bilirubin CK-MB (CK-2) C-Reactive Protein NT-Pro-B Natriuret Pep Total Protein Albumin Arterial Blood Glucose Arterial Blood Ionized Calcium Urine WBC (Auto) Urine Creatinine Digoxin 03/24/20 03/24/20 03/25/20 17:18 23:27 05:45 WBC RBC Hgb Hct MCHC RDW MCV MCH Lymph % (Auto) [place] % (Auto) [place] # Eos # Lymph # (Auto) [place] # (Auto) Eos # (Auto) Seg Neutrophils % Seg Neuts % (Manual) Baso # (Auto) Lymphocytes % (Manual) Monocytes % (Manual) Eosinophils % (Manual) Basophils % (Manual) Seg Neutrophils # Seg Neutrophils # Man Lymphocytes # (Manual) Monocytes # (Manual) Eosinophils # (Manual) Nucleated RBC % Basophils # (Manual) PT INR APTT Heparin Anti-Xa Level ABG pH POC ABG pO2 ABG pO2 ABG HCO3 ABG O2 Saturation ABG Base Excess POC ABG pCO2 ABG Hemoglobin ABG Oxyhemoglobin ABG Sodium ABG Chloride ABG Glucose Oxyhemoglobin Carboxyhemoglobin Sodium Potassium Chloride Carbon Dioxide BUN Creatinine Glucose POC Glucose 125 H 124 H 176 H Lactic Acid Calcium Phosphorus Magnesium AST ALT Lactate Dehydrogenase Total Bilirubin Direct Bilirubin CK-MB (CK-2) C-Reactive Protein NT-Pro-B Natriuret Pep Total Protein Albumin Arterial Blood Glucose Arterial Blood Ionized Calcium Urine WBC (Auto) Urine Creatinine Digoxin 03/25/20 03/25/20 03/26/20 11:15 17:00 00:12 WBC RBC Hgb Hct MCHC RDW MCV MCH Lymph % (Auto) [place] % (Auto) [place] # Eos # Lymph # (Auto) [place] # (Auto) Eos # (Auto) Seg Neutrophils % Seg Neuts % (Manual) Baso # (Auto) Lymphocytes % (Manual) Monocytes % (Manual) Eosinophils % (Manual) Basophils % (Manual) Seg Neutrophils # Seg Neutrophils # Man Lymphocytes # (Manual) Monocytes # (Manual) Eosinophils # (Manual) Nucleated RBC % Basophils # (Manual) PT INR APTT Heparin Anti-Xa Level ABG pH POC ABG pO2 ABG pO2 ABG HCO3 ABG O2 Saturation ABG Base Excess POC ABG pCO2 ABG Hemoglobin ABG Oxyhemoglobin ABG Sodium ABG Chloride ABG Glucose Oxyhemoglobin Carboxyhemoglobin Sodium Potassium Chloride Carbon Dioxide BUN Creatinine Glucose POC Glucose 147 H 111 H 115 H Lactic Acid Calcium Phosphorus Magnesium AST ALT Lactate Dehydrogenase Total Bilirubin Direct Bilirubin CK-MB (CK-2) C-Reactive Protein NT-Pro-B Natriuret Pep Total Protein Albumin Arterial Blood Glucose Arterial Blood Ionized Calcium Urine WBC (Auto) Urine Creatinine Digoxin 03/26/20 03/26/20 03/26/20 04:20 05:28 16:21 WBC RBC Hgb Hct MCHC RDW MCV MCH Lymph % (Auto) [place] % (Auto) [place] # Eos # Lymph # (Auto) [place] # (Auto) Eos # (Auto) Seg Neutrophils % Seg Neuts % (Manual) Baso # (Auto) Lymphocytes % (Manual) Monocytes % (Manual) Eosinophils % (Manual) Basophils % (Manual) Seg Neutrophils # Seg Neutrophils # Man Lymphocytes # (Manual) Monocytes # (Manual) Eosinophils # (Manual) Nucleated RBC % Basophils # (Manual) PT INR APTT Heparin Anti-Xa Level ABG pH POC ABG pO2 ABG pO2 ABG HCO3 ABG O2 Saturation ABG Base Excess POC ABG pCO2 ABG Hemoglobin ABG Oxyhemoglobin ABG Sodium ABG Chloride ABG Glucose Oxyhemoglobin Carboxyhemoglobin Sodium Potassium Chloride Carbon Dioxide BUN Creatinine 0.6 L Glucose 182 H POC Glucose 158 H 137 H Lactic Acid Calcium Phosphorus Magnesium AST ALT Lactate Dehydrogenase Total Bilirubin Direct Bilirubin CK-MB (CK-2) C-Reactive Protein NT-Pro-B Natriuret Pep Total Protein Albumin Arterial Blood Glucose Arterial Blood Ionized Calcium Urine WBC (Auto) Urine Creatinine Digoxin 03/27/20 03/27/20 03/27/20 00:22 05:49 11:16 WBC RBC Hgb Hct MCHC RDW MCV MCH Lymph % (Auto) [place] % (Auto) [place] # Eos # Lymph # (Auto) [place] # (Auto) Eos # (Auto) Seg Neutrophils % Seg Neuts % (Manual) Baso # (Auto) Lymphocytes % (Manual) Monocytes % (Manual) Eosinophils % (Manual) Basophils % (Manual) Seg Neutrophils # Seg Neutrophils # Man Lymphocytes # (Manual) Monocytes # (Manual) Eosinophils # (Manual) Nucleated RBC % Basophils # (Manual) PT INR APTT Heparin Anti-Xa Level ABG pH POC ABG pO2 ABG pO2 ABG HCO3 ABG O2 Saturation ABG Base Excess POC ABG pCO2 ABG Hemoglobin ABG Oxyhemoglobin ABG Sodium ABG Chloride ABG Glucose Oxyhemoglobin Carboxyhemoglobin Sodium Potassium Chloride Carbon Dioxide BUN Creatinine Glucose POC Glucose 155 H 117 H 139 H Lactic Acid Calcium Phosphorus Magnesium AST ALT Lactate Dehydrogenase Total Bilirubin Direct Bilirubin CK-MB (CK-2) C-Reactive Protein NT-Pro-B Natriuret Pep Total Protein Albumin Arterial Blood Glucose Arterial Blood Ionized Calcium Urine WBC (Auto) Urine Creatinine Digoxin 03/27/20 03/27/20 03/28/20 17:23 23:23 05:36 WBC RBC Hgb Hct MCHC RDW MCV MCH Lymph % (Auto) [place] % (Auto) [place] # Eos # Lymph # (Auto) [place] # (Auto) Eos # (Auto) Seg Neutrophils % Seg Neuts % (Manual) Baso # (Auto) Lymphocytes % (Manual) Monocytes % (Manual) Eosinophils % (Manual) Basophils % (Manual) Seg Neutrophils # Seg Neutrophils # Man Lymphocytes # (Manual) Monocytes # (Manual) Eosinophils # (Manual) Nucleated RBC % Basophils # (Manual) PT INR APTT Heparin Anti-Xa Level ABG pH POC ABG pO2 ABG pO2 ABG HCO3 ABG O2 Saturation ABG Base Excess POC ABG pCO2 ABG Hemoglobin ABG Oxyhemoglobin ABG Sodium ABG Chloride ABG Glucose Oxyhemoglobin Carboxyhemoglobin Sodium Potassium Chloride Carbon Dioxide BUN Creatinine Glucose POC Glucose 130 H 137 H 167 H Lactic Acid Calcium Phosphorus Magnesium AST ALT Lactate Dehydrogenase Total Bilirubin Direct Bilirubin CK-MB (CK-2) C-Reactive Protein NT-Pro-B Natriuret Pep Total Protein Albumin Arterial Blood Glucose Arterial Blood Ionized Calcium Urine WBC (Auto) Urine Creatinine Digoxin 03/28/20 03/28/20 03/28/20 12:28 17:54 23:40 WBC RBC Hgb Hct MCHC RDW MCV MCH Lymph % (Auto) [place] % (Auto) [place] # Eos # Lymph # (Auto) [place] # (Auto) Eos # (Auto) Seg Neutrophils % Seg Neuts % (Manual) Baso # (Auto) Lymphocytes % (Manual) Monocytes % (Manual) Eosinophils % (Manual) Basophils % (Manual) Seg Neutrophils # Seg Neutrophils # Man Lymphocytes # (Manual) Monocytes # (Manual) Eosinophils # (Manual) Nucleated RBC % Basophils # (Manual) PT INR APTT Heparin Anti-Xa Level ABG pH POC ABG pO2 ABG pO2 ABG HCO3 ABG O2 Saturation ABG Base Excess POC ABG pCO2 ABG Hemoglobin ABG Oxyhemoglobin ABG Sodium ABG Chloride ABG Glucose Oxyhemoglobin Carboxyhemoglobin Sodium Potassium Chloride Carbon Dioxide BUN Creatinine Glucose POC Glucose 128 H 126 H 111 H Lactic Acid Calcium Phosphorus Magnesium AST ALT Lactate Dehydrogenase Total Bilirubin Direct Bilirubin CK-MB (CK-2) C-Reactive Protein NT-Pro-B Natriuret Pep Total Protein Albumin Arterial Blood Glucose Arterial Blood Ionized Calcium Urine WBC (Auto) Urine Creatinine Digoxin 03/29/20 03/29/20 03/29/20 05:56 11:19 18:21 WBC RBC Hgb Hct MCHC RDW MCV MCH Lymph % (Auto) [place] % (Auto) [place] # Eos # Lymph # (Auto) [place] # (Auto) Eos # (Auto) Seg Neutrophils % Seg Neuts % (Manual) Baso # (Auto) Lymphocytes % (Manual) Monocytes % (Manual) Eosinophils % (Manual) Basophils % (Manual) Seg Neutrophils # Seg Neutrophils # Man Lymphocytes # (Manual) Monocytes # (Manual) Eosinophils # (Manual) Nucleated RBC % Basophils # (Manual) PT INR APTT Heparin Anti-Xa Level ABG pH POC ABG pO2 ABG pO2 ABG HCO3 ABG O2 Saturation ABG Base Excess POC ABG pCO2 ABG Hemoglobin ABG Oxyhemoglobin ABG Sodium ABG Chloride ABG Glucose Oxyhemoglobin Carboxyhemoglobin Sodium Potassium Chloride Carbon Dioxide BUN Creatinine Glucose POC Glucose 118 H 110 H 142 H Lactic Acid Calcium Phosphorus Magnesium AST ALT Lactate Dehydrogenase Total Bilirubin Direct Bilirubin CK-MB (CK-2) C-Reactive Protein NT-Pro-B Natriuret Pep Total Protein Albumin Arterial Blood Glucose Arterial Blood Ionized Calcium Urine WBC (Auto) Urine Creatinine Digoxin 03/29/20 03/29/20 03/30/20 21:00 23:35 05:11 WBC RBC Hgb Hct MCHC RDW MCV MCH Lymph % (Auto) [place] % (Auto) [place] # Eos # Lymph # (Auto) [place] # (Auto) Eos # (Auto) Seg Neutrophils % Seg Neuts % (Manual) Baso # (Auto) Lymphocytes % (Manual) Monocytes % (Manual) Eosinophils % (Manual) Basophils % (Manual) Seg Neutrophils # Seg Neutrophils # Man Lymphocytes # (Manual) Monocytes # (Manual) Eosinophils # (Manual) Nucleated RBC % Basophils # (Manual) PT INR APTT Heparin Anti-Xa Level ABG pH 7.565 H POC ABG pO2 66.8 L ABG pO2 ABG HCO3 ABG O2 Saturation ABG Base Excess POC ABG pCO2 ABG Hemoglobin 10.6 L ABG Oxyhemoglobin 92.6 L ABG Sodium 134.8 L ABG Chloride ABG Glucose 174 H Oxyhemoglobin Carboxyhemoglobin 1.8 H Sodium Potassium Chloride Carbon Dioxide BUN Creatinine Glucose POC Glucose 145 H 172 H Lactic Acid Calcium Phosphorus Magnesium AST ALT Lactate Dehydrogenase Total Bilirubin Direct Bilirubin CK-MB (CK-2) C-Reactive Protein NT-Pro-B Natriuret Pep Total Protein Albumin Arterial Blood Glucose 174 H Arterial Blood Ionized Calcium 4.5 L Urine WBC (Auto) Urine Creatinine Digoxin 03/31/20 03/31/20 03/31/20 04:13 04:13 05:16 WBC RBC Hgb 10.2 L Hct 32.6 L MCHC 31 L RDW 21.9 H MCV 77 L MCH 24 L Lymph % (Auto) [place] % (Auto) 11.0 H [place] # Eos # Lymph # (Auto) [place] # (Auto) 1.0 H Eos # (Auto) Seg Neutrophils % Seg Neuts % (Manual) Baso # (Auto) Lymphocytes % (Manual) Monocytes % (Manual) Eosinophils % (Manual) Basophils % (Manual) Seg Neutrophils # Seg Neutrophils # Man Lymphocytes # (Manual) Monocytes # (Manual) Eosinophils # (Manual) Nucleated RBC % Basophils # (Manual) PT INR APTT Heparin Anti-Xa Level ABG pH POC ABG pO2 ABG pO2 ABG HCO3 ABG O2 Saturation ABG Base Excess POC ABG pCO2 ABG Hemoglobin ABG Oxyhemoglobin ABG Sodium ABG Chloride ABG Glucose Oxyhemoglobin Carboxyhemoglobin Sodium Potassium Chloride Carbon Dioxide 35 H D BUN Creatinine 0.6 L Glucose 128 H POC Glucose 136 H Lactic Acid Calcium Phosphorus Magnesium AST ALT Lactate Dehydrogenase Total Bilirubin Direct Bilirubin CK-MB (CK-2) C-Reactive Protein NT-Pro-B Natriuret Pep Total Protein Albumin 2.9 L Arterial Blood Glucose Arterial Blood Ionized Calcium Urine WBC (Auto) Urine Creatinine Digoxin 03/31/20 04/01/20 04/01/20 17:06 05:28 11:21 WBC RBC Hgb Hct MCHC RDW MCV MCH Lymph % (Auto) [place] % (Auto) [place] # Eos # Lymph # (Auto) [place] # (Auto) Eos # (Auto) Seg Neutrophils % Seg Neuts % (Manual) Baso # (Auto) Lymphocytes % (Manual) Monocytes % (Manual) Eosinophils % (Manual) Basophils % (Manual) Seg Neutrophils # Seg Neutrophils # Man Lymphocytes # (Manual) Monocytes # (Manual) Eosinophils # (Manual) Nucleated RBC % Basophils # (Manual) PT INR APTT Heparin Anti-Xa Level ABG pH POC ABG pO2 ABG pO2 ABG HCO3 ABG O2 Saturation ABG Base Excess POC ABG pCO2 ABG Hemoglobin ABG Oxyhemoglobin ABG Sodium ABG Chloride ABG Glucose Oxyhemoglobin Carboxyhemoglobin Sodium Potassium Chloride Carbon Dioxide BUN Creatinine Glucose POC Glucose 108 H 126 H 128 H Lactic Acid Calcium Phosphorus Magnesium AST ALT Lactate Dehydrogenase Total Bilirubin Direct Bilirubin CK-MB (CK-2) C-Reactive Protein NT-Pro-B Natriuret Pep Total Protein Albumin Arterial Blood Glucose Arterial Blood Ionized Calcium Urine WBC (Auto) Urine Creatinine Digoxin Allied health notes reviewed: nursing
--- NOTE | 2020-04-01 13:25 | Progress Note ---
Assessment and Plan - Patient Problems (1) Paroxysmal atrial fibrillation Current Visit: Yes Status: Acute Plan to address problem: Continue current management of atrial fibrillation on a rate control strategy and oral anticoagulation, stable cardiac status. Subjective Date of service: 04/01/20 Principal diagnosis: Ac hypoxemic resp failure; Pneumonia; PUI COVID-19; CHF; COPD; HTN Interval history: Patient is on a trach T-piece, belt cleaner shows atrial fibrillation with heart rate in the 110s to 120s. Objective Vital Signs Temp Pulse Pulse Resp BP Pulse Ox Pulse Ox 04/01/20 12:14 136 H 121/79 04/01/20 10:00 96 04/01/20 09:47 142 H 116/92 04/01/20 08:00 131 H 25 H 121/83 100 04/01/20 07:30 142 H 31 H 114/81 100 04/01/20 07:00 122 H 26 H 115/86 99 04/01/20 06:30 136 H 27 H 106/71 100 04/01/20 06:00 139 H 21 116/71 96 04/01/20 05:30 137 H 17 108/71 95 04/01/20 05:00 128 H 28 H 103/71 95 04/01/20 04:30 129 H 22 111/80 95 04/01/20 04:00 126 H 124 H 28 H 111/80 97 04/01/20 03:34 95 04/01/20 03:30 152 H 29 H 103/79 96 04/01/20 03:21 97.7 F 04/01/20 03:00 121 H 19 103/79 99 04/01/20 02:30 130 H 29 H 109/79 90 04/01/20 02:00 140 H 27 H 109/79 100 04/01/20 01:30 117 H 23 99 04/01/20 01:00 127 H 23 95/65 98 04/01/20 00:30 120 H 20 86/68 99 04/01/20 00:00 129 H 129 H 23 100/73 96 03/31/20 23:51 120 H 100/79 03/31/20 23:40 98.3 F 03/31/20 23:32 122 H 24 101/69 99 03/31/20 23:30 121 H 25 H 100/79 97 03/31/20 23:00 136 H 26 H 110/77 95 03/31/20 22:30 123 H 29 H 100/72 96 03/31/20 22:00 123 H 19 94/73 98 03/31/20 21:30 126 H 25 H 95/69 94 03/31/20 21:00 124 H 27 H 98 03/31/20 20:33 97 03/31/20 20:30 122 H 29 H 111/88 96 03/31/20 20:00 99.1 F 130 H 130 H 20 102/78 95 03/31/20 19:30 140 H 36 H 102/78 96 03/31/20 19:00 133 H 27 H 108/77 98 03/31/20 18:30 116 H 23 118/76 100 03/31/20 18:00 131 H 23 118/76 100 03/31/20 17:30 120 H 26 H 105/69 92 03/31/20 17:00 126 H 29 H 96/78 96 03/31/20 16:30 120 H 25 H 94/72 96 03/31/20 16:08 121 H 121 H 25 H 97 03/31/20 16:00 98 F 104 H 21 109/69 97 97 03/31/20 15:30 133 H 25 H 99/78 75 L 03/31/20 15:00 135 H 28 H 113/80 92 03/31/20 14:30 123 H 19 104/74 98 03/31/20 14:00 125 H 17 105/68 97 03/31/20 13:30 115 H 19 127/79 94 - Physical Examination General: No Apparent Distress, Other (s/p trach) HEENT: Positive: PERRL Neck: Positive: neck supple, Other (s/p trach) Cardiac: Positive: irregularly irregular Lungs: Positive: Decreased Breath Sounds Neuro: Positive: Grossly Intact, Weakness Abdomen: Positive: Soft Skin: Positive: Clear Extremities: Absent: edema - Allied health notes Allied health notes reviewed: nursing
[2020-04-01] MEDS: MORPHINE 2 MG/1 ML INJ IV PRN (15:07)
[2020-04-01 16:30] VITALS: BP 109/87
--- NOTE | 2020-04-01 18:48 | Discharge Summary ---
Providers - Providers Date of Admission: 11/24/19 04:57 Date of discharge: 04/01/20 Attending physician: CHRISTIAN JOHNSON 11/24/19 05:32 Consult to Dietitian/Nutrition [CONS] Routine Physician Instructions: Reason For Exam: Reason for Consult: Diet education Consult to Physician [CONS] Routine Comment: Consulting Provider: AB CLARK Physician Instructions: Reason For Exam: RESPIRATORY FAILURE, PNEUMONIA 11/24/19 05:36 Consult to Physician [CONS] Routine Comment: Consulting Provider: AASHISH BAINS Physician Instructions: Reason For Exam: PNEUMONIA R/O COVID 19 11/24/19 09:49 Consult to Dietitian/Nutrition [CONS] Routine Physician Instructions: Reason For Exam: Reason for Consult: Write/Manage Tube Feeding 11/29/19 07:37 Consult to Physician [CONS] Routine Comment: Consulting Provider: LYNN LAU Physician Instructions: Reason For Exam: cardiomyopathy 12/10/19 12:34 Consult to PICC Line RN [CONS] Stat Reason For Exam: need iv abx and contrast Type Line:: Midline 12/10/19 18:31 Consult to Physician [CONS] Routine Comment: Consulting Provider: MICHAEL REY Physician Instructions: Reason For Exam: possible EKOS and ivc filter 12/17/19 13:38 Consult to Physician [CONS] Routine Comment: Consulting Provider: ANISHA KRISHNA Physician Instructions: Reason For Exam: Tracheostomy placement 01/02/20 15:06 Consult to Physician [CONS] Routine Comment: Consulting Provider: ARVIN TINSLEY Physician Instructions: Reason For Exam: bacteremia 01/05/20 15:03 Consult to Physician [CONS] Routine Comment: called office/shahla Consulting Provider: ANISHA KRISHNA Physician Instructions: Reason For Exam: SBO 01/09/20 11:08 Consult to Dietitian/Nutrition [CONS] Routine Physician Instructions: Assess nutrtn needs, initiate, modify, manage TF Reason For Exam: Reason for Consult: Write/Manage Tube Feeding Reason for Consult: Write/Manage Tube Feeding 01/11/20 08:00 Consult to Wound/ET Nurse [CONS] Routine Reason For Exam: wound eval: breakdown around trache 01/14/20 11:59 Physical Therapy Evaluation and Treat [CONS] Routine Comment: Reason For Exam: deconditioning 01/15/20 13:35 Speech Therapy Evaluation and Treat [CONS] Routine Reason For Exam: oropharyngeal Dysphagia 01/22/20 10:41 Consult to Cardiac Rehabilitation [CONS] Routine Reason For Exam: Cardiac Rehab Evaluation 01/27/20 12:02 Occupational Therapy Evaluate and Treat [CONS] Routine Comment: Reason For Exam: generalized weakness 02/03/20 11:43 Consult to Physician [CONS] Routine Comment: Consulting Provider: TED FRAZIER Physician Instructions: Reason For Exam: N&V (projectile); elevated liver enzymes 02/03/20 16:39 Consult to Physician [CONS] Routine Comment: Consulting Provider: AASHISH BAINS Physician Instructions: Reason For Exam: AMS, leucocytosis, hypotension, Pneumonia (Sepsis) 02/12/20 13:04 Consult to Wound/ET Nurse [CONS] Urgent Reason For Exam: wound evalbreak down around trach. 02/15/20 08:27 Consult to Physician [CONS] Routine Comment: ext [id number] no answ./ shahla Consulting Provider: BAKARI AQUINO Physician Instructions: Reason For Exam: agitation, anxiety 02/19/20 19:49 Occupational Therapy Evaluate and Treat [CONS] Routine Comment: Reason For Exam: Deconditioning, ADLS Physical Therapy Evaluation and Treat [CONS] Routine Comment: Reason For Exam: Deconditioning, critical illness 02/27/20 14:53 Consult to Case Management [CONS] Routine Services Needed at Discharge: Other Notified:: Case management 02/28/20 19:56 Consult to Wound/ET Nurse [CONS] Routine Reason For Exam: sacrum wound 03/30/20 14:24 Speech Therapy Eval for Passy-Joy Valve [CONS] Stat Reason For Exam: PMV evaluation with Resp Dept today Primary care physician: SSIS DEVELOPER Hospitalization Condition: Stable Hospital course: Critical care statement The high probability of a clinically significant, sudden or life threatening deterioration of the [Respiratory, cardiovascular & neurological] system(s) required my full and direct attention, intervention and personal management. The aggregate critical care time was [35] minutes without overlap. Time includes spent on [x] Data Review and interpretation [x] Patient assessment and monitoring of vital signs [x] Documentation [x] Medication orders and management History Interval history: I have have seen and examined the patient at the bedside Patient chronic tracheostomy on T-piece Mild anxiety, Denies chest pain or shortness of breath Vital signs noted Patient being discharged to hospice 03/19/2020. Continue current vent per pulmonary recommendations. Pressure support ventilation trials as tolerated. Continue trach care, secretion control and airway management. Mobility protocols for pressure ulcer prophylaxis. 03/20/2020. Rate better controlled on digoxin and metoprolol per cardiology. Patient currently off amiodarone due to elevated liver enzymes. Continue anticoagulation with Eliquis. IV metoprolol as needed. No statins for now secondary to elevated liver enzymes. Patient remains on AC mode ventilation rate 12, tidal volume 450, FiO2 30% and PEEP of 6. Cont. PSV as figueroa. Continue trach care, secretion control and airway management. Mobility protocols for pressure ulcer prophylaxis. Patient is uninsured and his only d/c option is to return home with family. 03/21/2020. Patient still with elevated heart rate but better on digoxin and metoprolol per cardiology. Patient currently off amiodarone due to elevated liver enzymes. Continue anticoagulation with Eliquis. IV metoprolol as needed. No statins for now secondary to elevated liver enzymes. Patient remains on AC mode mechanical ventilation with rate 12, tidal volume 450, FiO2 30% and PEEP of 6. Continue PSV trials as tolerated. Continue trach care, secretion control and airway management. Mobility protocols for pressure ulcer prophylaxis. Patient is uninsured and his only d/c option is to return home with family. 03/22/2020; patient remains on ventilatory support, continue to wean as t olerated, trach care Awaiting LTAC placement, however patient has multiple social issues, mobility protocols blood pressure ulcers DVT prophylaxis, will continue current management 03/23/2020; patient remains on ventilatory support, tracheostomy, on CPAP trial 03/25/2020; patient with tracheostomy remains on ventilatory support, complains of mild nausea 03/26/2020; clinically no change, tracheostomy on vent, unable to wean 03/27/2020; remains on ventilatory support, wean as tolerated, social issues, awaiting placement 03/28/2020; wean off vent as tolerated, awaiting LTAC placement, multiple social issues 03/29/2020; patient is off vent, tracheostomy on T-piece 15 L of oxygen closely monitor 03/30/2020; patient is weaned off ventilator, on T-piece feeling much better 03/31/2020; patient continues to have intermittent A. fib with rapid ventricular rate, on digoxin metoprolol Eliquis, increase metoprolol dose from 12.5 to 25 mg twice a day as tolerated, cardiology following Off ventilator, on T-piece 15 L of oxygen Plan of care reviewed with the patient and his nurse Assessment and Plan Assessment and plan: Patient is off ventilator, tracheostomy on T-piece --Paroxysmal atrial fibrillation; with rapid ventricular rate Continue digoxin, beta-blockers, supportive care Increase metoprolol dose from 12.5 to 25 mg twice daily as tolerated On chronic anticoagulation Eliquis Cardiology following --Acute on chronic hypoxemic respiratory failure; Patient has tracheostomy weaned off vent On T-piece, 15 L of oxygen Pulmonary critical following --Acute exacerbation of COPD; Patient is currently on T-piece Continue nebulizers --Left lower lobe PE; Continue Eliquis, ventilatory support --Acute right lower extremity DVT; Patient is on Eliquis --Bilateral multifocal pneumonia/community-acquired Completed antibiotics, improved --Severe sepsis/bilateral pneumonia: Completed antibiotics COVID-19 test; 11/24/2019; negative 11/26/2019; negative 12/29/2019: Negative --Acute on chronic combined systolic and diastolic congestive heart failure Ischemic cardiomyopathy left ventricular ejection fraction 40 to 45% --H/o CAD [[place] 12/2018 in-stent restenosis] Patient is stable on current cardiac medications --Hypertensive emergency; present on admission Reasonable blood pressures, continue current antihypertensives As needed medications --History of alcohol abuse/alcohol withdrawal; Was on CIWA protocol, now stable --Oropharyngeal dysphagia; status post PEG placement Continue PEG feeds per protocol --History of partial small bowel obstruction; resolved Surgery evaluated. --Obesity; BMI 34.7 Patient needs weight reduction when medically stable --Severe protein calorie malnutrition/hypoalbuminemia Nutrition supplements, dietitian following, PEG feeds --DVT prophylaxis;Eliquis --Full CODE STATUS DC planning per case management, hospice is evaluating the patient We will closely monitor the patient and adjust management as needed Plan of care reviewed with the patient and his nurse Patient being discharged to hospice care Disposition: DC-01 TO HOME OR SELFCARE - Discharge Diagnoses (1) Acute hypoxemic respiratory failure Status: Acute (2) Bilateral pneumonia Status: Acute Core Measure Documentation - Palliative Care Palliative Care/ Comfort Measures: Not Applicable - Core Measures Any of the following diagnoses?: none (Patient did not do much surgery) Exam - Constitutional Vitals: Temp Pulse Resp BP Pulse Ox 98.5 F 122 H 20 109/87 88 04/01/20 12:00 04/01/20 16:00 04/01/20 16:00 04/01/20 16:00 04/01/20 16:00 General appearance: Present: no acute distress, well-nourished - EENT Eyes: Present: PERRL ENT: hearing intact, clear oral mucosa - Neck Neck: Present: supple, normal ROM - Respiratory Respiratory effort: normal Respiratory: bilateral: CTA - Cardiovascular Heart rate: 78 Rhythm: regular Heart Sounds: Present: S1 & S2. Absent: rub, click - Extremities Extremities: pulses symmetrical, No edema Peripheral Pulses: within normal limits - Abdominal General gastrointestinal: Present: soft, non-tender, non-distended, normal bowel sounds Male genitourinary: Present: normal - Integumentary Integumentary: Present: clear, warm, dry - Musculoskeletal Musculoskeletal: gait normal, strength equal bilaterally - Psychiatric Psychiatric: appropriate mood/affect, intact judgment & insight - Neurologic Neurologic: CNII-XII intact, moves all extremities Plan Activity: no restrictions Weight Bearing Status: Weight Bear as Tolerated Diet: other Follow up with: PRIMARY CARE, [Primary Care Provider] - 3-5 Days
== END 2020-04-01 16:30 | disposition home or self-care (01) | DRG 4 ==
LOC: ED 02:08 → CC1 04:57 → IMCU 01-14 18:55 → CC1 01-16 02:28 → IMCU 02-25 19:37
PROVIDERS: ADMIT Internal Medicine Geriatric Medicine; ATTEND Internal Medicine
PROC: 0BH17EZ Insertion of Endotracheal Airway into Trachea, Via Natural or Artificial Opening (ICD-10-PCS; principal; 2019-11-24)
PROC: 4A033R1 Measurement of Arterial Saturation, Peripheral, Percutaneous Approach (ICD-10-PCS; 2019-11-24)
PROC: 5A1955Z Respiratory Ventilation, Greater than 96 Consecutive Hours (ICD-10-PCS; 2019-11-24)
PROC: 05HC33Z Insertion of Infusion Device into Left Basilic Vein, Percutaneous Approach (ICD-10-PCS; 2019-12-10)
PROC: 0B110F4 Bypass Trachea to Cutaneous with Tracheostomy Device, Open Approach (ICD-10-PCS; 2019-12-18)
PROC: 4A023N7 Measurement of Cardiac Sampling and Pressure, Left Heart, Percutaneous Approach (ICD-10-PCS; 2020-01-22)
PROC: B2111ZZ Fluoroscopy of Multiple Coronary Arteries using Low Osmolar Contrast (ICD-10-PCS; 2020-01-22)
PROC: B2151ZZ Fluoroscopy of Left Heart using Low Osmolar Contrast (ICD-10-PCS; 2020-01-22)
DX: A41.9 Sepsis, unspecified organism (principal); J96.21 Acute and chronic respiratory failure with hypoxia; I26.99 Other pulmonary embolism without acute cor pulmonale; E87.2 Acidosis; R65.20 Severe sepsis without septic shock; I25.10 Atherosclerotic heart disease of native coronary artery without angina pectoris; J69.0 Pneumonitis due to inhalation of food and vomit; E78.5 Hyperlipidemia, unspecified; M19.90 Unspecified osteoarthritis, unspecified site; F17.210 Nicotine dependence, cigarettes, uncomplicated; I11.0 Hypertensive heart disease with heart failure; R13.12 Dysphagia, oropharyngeal phase; I25.5 Ischemic cardiomyopathy; I47.1 Supraventricular tachycardia; I82.491 Acute embolism and thrombosis of other specified deep vein of right lower extremity; I48.0 Paroxysmal atrial fibrillation; E88.09 Other disorders of plasma-protein metabolism, not elsewhere classified; K86.9 Disease of pancreas, unspecified; I16.1 Hypertensive emergency; K56.600 Partial intestinal obstruction, unspecified as to cause; F14.20 Cocaine dependence, uncomplicated; I50.43 Acute on chronic combined systolic (congestive) and diastolic (congestive) heart failure; E66.2 Morbid (severe) obesity with alveolar hypoventilation; Z68.36 Body mass index [BMI] 36.0-36.9, adult; Z98.61 Coronary angioplasty status; Z79.899 Other long term (current) drug therapy; Z86.73 Personal history of transient ischemic attack (TIA), and cerebral infarction without residual deficits; Y92.89 Other specified places as the place of occurrence of the external cause; E43 Unspecified severe protein-calorie malnutrition
CPT/HCPCS: 36415; 36600; 70450; 71045; 71275; 74018; 74022; 74176; 74177; 76604; 76705; 80048; 80053; 80074; 80076; 80162; 80202; 81001; 82140; 82550; 82553; 82570; 82728; 82803; 82805; 82947; 82962; 83615; 83735; 83880; 84100; 84145; 84300; 84484; 85007; 85014; 85018; 85025; 85027; 85049; 85520; 85610; 85730; 86140; 86850; 86900; 86901; 87040; 87070; 87076; 87116; 87186; 87205; 93005; 93306; 93458; 93970; 94002; 94003; 94640; 94667; 94668; 94760; 96365; 96372; 96375; G0378; A9270-GY; C1894; J0153; J0282; J0330; J0456; J0692; J0696; J1160; J1630; J1644; J1650; J1815; J1940; J2060; J2185; J2250; J2270; J2405; J2543; J2704; J2765; J3010; J3370; J3480; J3490; J7030; J7040; J7042; J7050; J7060; J7070; Q9967; U0003